=== PATIENT | male | born 1975 | race Caucasian/White ===

== ENCOUNTER 2020-12-28 23:22 | Emergency (ER) | payer OTHER ==
--- NOTE | 2020-12-29 02:09 | EDPHYS ---
Physician Documentation [facility] Name: Binu Mcelroy Age: 45 yrs Sex: Male : 1975 Arrival Date: 12/28/2020 Time: 23:28 Bed 9 Private MD: ED Physician Kumar Velarde HPI: 12/29 00:45 This 45 yrs old Male presents to ER via Ambulatory with complaints of RIGHT cp INDEX FINGER KNUCKLE FLUID BUILD UP. 00:45 Patient reports noticing swelling to the dorsal side of the right index finger at the cp proximal interphalangeal joint for the past month. Patient reports the swelling has seemed to get worse over the last 2 days and feels warm to the touch. Denies drainage from the area.. Historical: - Allergies: 00:02 No Known Allergies; lp1 - Home Meds: 00:18 lisinopril 20 mg Oral tab 1 tab once daily [Active]; carvedilol 12.5 mg oral tab 1 tab lp1 2 times per day [Active]; rosuvastatin 80 mg oral tab once daily [Active]; gabapentin 800 mg oral tab 1 tab 3 times per day [Active]; amlodipine 5 mg tab 1 tab once daily [Active]; Bumex 1 mg Oral tab 1 tab 2 times per day [Active]; metolazone 5 mg oral tab Q 2 days [Active]; isosorbide mononitrate 60 mg Oral Tb24 1 tab once daily [Active]; aspirin 81 mg Oral TbEC 1 tab once daily [Active]; tramadol 50 mg Oral tab [Active]; clopidogrel 75 mg oral tab once daily [Active]; Lantus U-100 Insulin 100 unit/mL Sub-Q soln 50 unit twice a day [Active]; insulin lispro subcutaneous [Active]; - PMHx: 00:02 Diabetes mellitus; CVA; CHF; lp1 - PSHx: 00:02 Heart stents; Pacemaker; lp1 - Immunization history:: Adult Immunizations up to date. - Social history:: Smoking status: Patient denies any tobacco usage or history of. ROS: 00:50 MS/extremity: Positive for decreased range of motion, pain, swelling, tenderness, of cp the right index finger, Negative for injury. 00:50 Constitutional: Negative for body aches, chills, fever. cp Exam: 01:00 Constitutional: The patient appears in no acute distress, alert, awake, non-toxic, well cp developed, well nourished. 01:00 Musculoskeletal/extremity: Extremities: grossly normal except: noted in the dorsal cp aspect of proximal interphalangeal joint phalanx of right index finger: cystic mass with mild erythema and swelling extending to proximal finger, mild tenderness along volar side of finger, pain with ROM proximal interphalangeal joint, Perfusion: the extremity is normally perfused throughout, Sensation intact. Vital Signs: 00:00 BP 151 / 97; Pulse 85; Resp 18; Temp 98.2(TE); Pulse Ox 97% on R/A; Weight 104.33 kg lp1 (R); Height 5 ft. 10 in. (177.80 cm); Pain 5/10; 00:00 Body Mass Index 33.00 (104.33 kg, 177.80 cm) lp1 MDM: 00:15 Patient medically screened. cp 01:00 Differential diagnosis: closed fracture, tenosynovitis, abscess, cellulitis. cp 02:07 Data reviewed: vital signs, nurses notes, radiologic studies, plain films. Test cp interpretation: by ED physician or midlevel provider: xrays of right index finger negative for fracture and/or foreign body. Counseling: I had a detailed discussion with the patient and/or guardian regarding: the historical points, exam findings, and any diagnostic results supporting the discharge/admit diagnosis, radiology results, the need for outpatient follow up, for definitive care, a hand specialist, to return to the emergency department if symptoms worsen or persist or if there are any questions or concerns that arise at home. 12/29 00:35 Order name: XRAY Finger-Thumb RIGHT: right index finger cp Administered Medications: 02:28 Drug: Bactrim (trimethoprim-sulfamethoxazole) (160 mg-800 mg (DS) 1 tablet Route: PO; jb4 02:29 Follow up: Response: Medication administered at discharge. jb4 02:28 Drug: Hydrocodone-Acetaminophen (7.5 mg-325 mg) 1 tabs Route: PO; jb4 02:29 Follow up: Response: Medication administered at discharge. jb4 02:29 Drug: Doxycycline 100 mg Route: PO; jb4 02:29 Follow up: Response: Medication administered at discharge. jb4 Disposition: 02:20 Chart complete. cp 07:06 Co-signature as Attending Physician, Kumar Velarde MD. [email or web address] Disposition Summary: 12/29/20 02:09 Discharge Ordered Location: Home cp Problem: new cp Symptoms: have improved cp Condition: Stable cp Diagnosis - Cellulitis of right finger - right index cp Followup: cp - With: Daniel Nelson MD - When: 2 - 3 days - Reason: Recheck today's complaints Discharge Instructions: - Discharge Summary Sheet cp - Cellulitis, Adult cp Forms: - Medication Reconciliation Form cp - Thank You Letter cp - Antibiotic Education cp - Prescription Opioid Use cp Prescriptions: - Doxycycline Hyclate 100 mg Oral Tablet - take 1 tablet by ORAL route every 12 hours; 20 tablet; Refills: 0, Product cp Selection Permitted - Bactrim DS 800-160 mg Oral Tablet - take 1 tablet by ORAL route every 12 hours for 10 days; 20 tablet; Refills: 0, cp Product Selection Permitted Signatures: Dispatcher [employer] EDLi Mcqueen RN RN lp1 Baljinder Vences PA PA cp Car Delaney RN RN jb4 Kumar Velarde MD MD [email or web address] Corrections: (The following items were deleted from the chart) 02:28 02:09 Splint - Finger ordered. cp jb4
--- NOTE | 2020-12-29 02:09 | ER ---
Nurse's Notes [facility] Name: Binu Mcelroy Age: 45 yrs Sex: Male : 1975 Arrival Date: 12/28/2020 Time: 23:28 Bed 9 Private MD: Diagnosis: Cellulitis of right finger-right index Presentation: 12/29 00:00 Chief complaint: Patient states: Reports swelling and increased pain to right index lp1 finger knuckle x 2 days; Initial swelling began 1 month ago. Coronavirus screen: At this time, the client does not indicate any symptoms associated with coronavirus-19. Ebola Screen: No symptoms or risks identified at this time. Initial Sepsis Screen: Does the patient meet any 2 criteria? No. Patient's initial sepsis screen is negative. Does the patient have a suspected source of infection? No. Patient's initial sepsis screen is negative. Risk Assessment: Do you want to hurt yourself or someone else? Patient reports no desire to harm self or others. Onset of symptoms was December 29, 2020. 00:00 Method Of Arrival: Ambulatory lp1 00:00 Acuity: CRISS 4 lp1 Historical: - Allergies: 00:02 No Known Allergies; lp1 - Home Meds: 00:18 lisinopril 20 mg Oral tab 1 tab once daily [Active]; carvedilol 12.5 mg oral tab 1 tab lp1 2 times per day [Active]; rosuvastatin 80 mg oral tab once daily [Active]; gabapentin 800 mg oral tab 1 tab 3 times per day [Active]; amlodipine 5 mg tab 1 tab once daily [Active]; Bumex 1 mg Oral tab 1 tab 2 times per day [Active]; metolazone 5 mg oral tab Q 2 days [Active]; isosorbide mononitrate 60 mg Oral Tb24 1 tab once daily [Active]; aspirin 81 mg Oral TbEC 1 tab once daily [Active]; tramadol 50 mg Oral tab [Active]; clopidogrel 75 mg oral tab once daily [Active]; Lantus U-100 Insulin 100 unit/mL Sub-Q soln 50 unit twice a day [Active]; insulin lispro subcutaneous [Active]; - PMHx: 00:02 Diabetes mellitus; CVA; CHF; lp1 - PSHx: 00:02 Heart stents; Pacemaker; lp1 - Immunization history:: Adult Immunizations up to date. - Social history:: Smoking status: Patient denies any tobacco usage or history of. Screenin:02 Abuse screen: Denies threats or abuse. Denies injuries from another. Nutritional lp1 screening: No deficits noted. Tuberculosis screening: No symptoms or risk factors identified. Fall Risk None identified. Assessment: 00:19 General: Appears in no apparent distress. comfortable, Behavior is calm, cooperative, jb4 appropriate for age. Pain: Complains of pain in Right index finger Pain does not radiate. Pain currently is 5 out of 10 on a pain scale. Quality of pain is described as throbbing, pulsating. Neuro: Level of Consciousness is awake, alert, obeys commands, Oriented to person, place, time, situation. Cardiovascular: Patient's skin is warm and dry. Respiratory: Airway is patent Respiratory effort is even, unlabored, Respiratory pattern is regular, symmetrical. GI: No signs and/or symptoms were reported involving the gastrointestinal system. : No signs and/or symptoms were reported regarding the genitourinary system. EENT: No signs and/or symptoms were reported regarding the EENT system. Derm: Skin is intact, Skin is pink, warm \T\ dry. Musculoskeletal: Circulation, motion, and sensation intact. Range of motion: intact in all extremities, Swelling present in Right index finger. 01:31 Reassessment: Patient appears in no apparent distress at this time. Patient and/or jb4 family updated on plan of care and expected duration. Pain level reassessed. Patient is alert, oriented x 3, equal unlabored respirations, skin warm/dry/pink. 02:30 Reassessment: Patient appears in no apparent distress at this time. Patient and/or jb4 family updated on plan of care and expected duration. Pain level reassessed. Patient is alert, oriented x 3, equal unlabored respirations, skin warm/dry/pink. Vital Signs: 00:00 BP 151 / 97; Pulse 85; Resp 18; Temp 98.2(TE); Pulse Ox 97% on R/A; Weight 104.33 kg 1 (R); Height 5 ft. 10 in. (177.80 cm); Pain 5/10; 00:00 Body Mass Index 33.00 (104.33 kg, 177.80 cm) [facility] ED Course: 12/28 23:28 Patient arrived in ED. ja2 12/29 00:02 Triage completed. lp1 00:02 Arm band placed on. lp1 00:10 Baljinder Vences PA is PHCP. cp 00:10 Kumar Velarde MD is Attending Physician. cp 00:19 Car Delaney, RN is Primary Nurse. jb4 00:19 Patient has correct armband on for positive identification. Bed in low position. Call jb4 light in reach. Side rails up X 1. 01:46 XRAY Finger-Thumb RIGHT: right index finger In Process Unspecified. EDMS 02:08 Daniel Nelson MD is Referral Physician. cp 02:30 No provider procedures requiring assistance completed. Patient did not have IV access jb4 during this emergency room visit. Administered Medications: 02:28 Drug: Bactrim (trimethoprim-sulfamethoxazole) (160 mg-800 mg (DS) 1 tablet Route: PO; jb4 02:29 Follow up: Response: Medication administered at discharge. jb4 02:28 Drug: Hydrocodone-Acetaminophen (7.5 mg-325 mg) 1 tabs Route: PO; jb4 02:29 Follow up: Response: Medication administered at discharge. jb4 02:29 Drug: Doxycycline 100 mg Route: PO; jb4 02:29 Follow up: Response: Medication administered at discharge. jb4 Outcome: 02:09 Discharge ordered by MD. cp 02:30 Discharged to home ambulatory, with family. jb4 02:30 Condition: stable 02:30 Discharge instructions given to patient, family, Instructed on discharge instructions, follow up and referral plans. medication usage, Demonstrated understanding of instructions, follow-up care, medications, Prescriptions given X 2. 02:31 Patient left the ED. jb4 Signatures: Dispatcher [employer] EDMS Li Medina RN RN lp1 Baljinder Vences PA PA cp Car Delaney, RN RN jb4 Mini Dhaliwal [facility] Corrections: (The following items were deleted from the chart) 00:19 Pain: Complains of pain in dorsal aspect of proximal phalanx of right middle jb4 finger Pain does not radiate. Pain currently is 5 out of 10 on a pain scale. Quality of pain is described as throbbing, pulsating, jb4 00:19 Musculoskeletal: Circulation, motion, and sensation intact. Range of motion: jb4 intact in all extremities, Swelling present in dorsal aspect of proximal phalanx of right middle finger jb4
[2020-12-29 02:34] VITALS: BP 151/97; TEMP 98.2; O2SAT 97
[2020-12-29] MEDS ORDERED: SMZ./TMP. 800/160 MG TABLET ONE (02:40)
[2020-12-29] MEDS ORDERED: HYDROCODONE/APAP 7.5/325 MG TAB ONE (02:41)
[2020-12-29] MEDS ORDERED: DOXYCYCLINE 100 MG CAP PO ONE (02:41)
--- NOTE | 2020-12-29 09:07 | RAD REPORT ---
EXAM DESCRIPTION: RAD - Finger-Thumb Right - 12/29/2020 1:46 am CLINICAL HISTORY: PAIN COMPARISON: No comparisons FINDINGS: No acute fracture. No malalignment. No significant focal degenerative changes. IMPRESSION: No acute osseous abnormality involving the second finger.
== END 2020-12-29 02:31 | disposition home or self-care (01) ==
LOC: ER 23:22
DX: L03.011 Cellulitis of right finger (principal); E11.9 Type 2 diabetes mellitus without complications; I50.9 Heart failure, unspecified; Z95.5 Presence of coronary angioplasty implant and graft; Z95.0 Presence of cardiac pacemaker
CPT/HCPCS: 99283

== ENCOUNTER 2021-01-02 08:48 | Day surgery (SDC) | payer OTHER ==
[2021-01-02 09:29] LABS: Potassium 5.3 mmol/L (3.5-5.1)
[2021-01-02 09:53] LABS: Absolute Lymphocytes (CBC) 1.5 K/uL (0.7-4.9); Basophils % 0.9 % (0-1.3); Hematocrit 38.1 % (39.6-49.0); Lymphocytes % 15.3 % (15.3-44.8); MPV 9.1 fL (7.6-11.3); RBC Red Blood Cell Count 4.06 M/uL (4.33-5.43)
[2021-01-02] MEDS: NA CHLORIDE 0.9% 1,000 ML ONE ×2 (10:20→10:49)
--- NOTE | 2021-01-02 10:30 | RAD REPORT ---
EXAM DESCRIPTION: RAD - Hand Right 2 View - 01/02/2021 10:19 am CLINICAL HISTORY: RIGHT INDEX FINGER, SAME DAY SURGERY, BED 8 COMPARISON: <Comparisons> FINDINGS: Focal soft tissue prominence is seen along the dorsal soft tissues of the second finger ne ar the PIP joint. No underlying bony erosion or aggressive bone lesions seen. No fracture evident. Mi ld atherosclerosis.
--- NOTE | 2021-01-02 10:30 | RAD REPORT ---
EXAM DESCRIPTION: RAD - Chest Pa And Lat (2 Views) - 01/02/2021 10:19 am CLINICAL HISTORY: STAT, SAME DAY SURGERY, BED 8 Chest pain. COMPARISON: No comparisons FINDINGS: The lungs are clear. The heart is moderately enlarged with a dual lead pacer device presen t. Trace left pleural effusion.
[2021-01-02] MEDS: CEFAZOLIN/NS 1gm 1 GM/50 ML BAG ONE ×2 (10:50→11:55)
[2021-01-02] MEDS ORDERED: propofoL 200 MG/20 ML VIAL IV ONE (11:19)
[2021-01-02] MEDS ORDERED: FENTANYL CITR 100 MCG/2 ML ONE (11:19)
[2021-01-02] MEDS ORDERED: MIDAZOLAM HCL 2 MG/2 ML INJ ONE (11:19)
[2021-01-02] MEDS ORDERED: dexAMETHasone 10 MG/ML VIAL ONE (11:19)
[2021-01-02] MEDS ORDERED: BUPIVACAINE 0.25% PF 10 ML VIAL ONE (11:20)
[2021-01-02] MEDS ORDERED: LIDOCAINE 2% MPF 5 ML VIAL ONE (11:20)
[2021-01-02] MEDS ORDERED: ONDANSETRON 4 MG/2 ML VIAL ONE (11:20)
[2021-01-02] MEDS ORDERED: KETOROLAC 30 MG/ML INJ ONE (11:20)
--- NOTE | 2021-01-02 13:35 | OP ---
Surgeon: Daniel Nelson MD Preoperative Diagnosis: Mass of the right index finger. Postoperative Diagnosis: Mass of the right index finger. Procedure: Excision of mass, arthrotomy. Anesthesia: Digital block. Procedure In Detail: After satisfactory block, the right hand was prepped with Betadine scrub and Betadine paint. Dry sterile drapes were placed in usual manner. Six gloves were used as a digital tourniquet. Hand was placed on roll lock table. A transverse incision was marked over the PIP of ulnar aspect of the right index . the mass appears to be a gout and was extending into the joint. The joint was opened and a curette as well as rongeur were used to remove all bony material. It was jet lavaged, irrigated with 3 L of dilute Betadine solution. Tourniquet released. Electrocautery was used for hemostasis. The wound was closed with 4-0 Prolene vertical mattress, half buried mattresses, simple sutures. Dressed with Xeroform, 2-inch Javier. The patient tolerated the procedure well and returned to recovery. MARIANNA/EUGENIO Voice ID: [id number] Report ID: [id number] CHAUNCEY
[2021-01-02] MEDS ORDERED: CODEINE 30MG/APAP 300MG TAB ONE (14:03)
[2021-01-02 14:16] VITALS: BP 140/45; TEMP 97.6; O2SAT 97
== END 2021-01-02 14:05 | disposition home or self-care (01) ==
LOC: OR 08:48
PROVIDERS: ATTEND Specialist
PROC: 0RBW0ZX Excision of Right Finger Phalangeal Joint, Open Approach, Diagnostic (ICD-10-PCS; principal; 2021-01-02 11:15)
DX: R22.31 Localized swelling, mass and lump, right upper limb (principal); Z20.822 Contact with and (suspected) exposure to COVID-19
CPT/HCPCS: 93005; 85025; 80048; 36415; 88305; 71046; 73120; 26110; U0003; J2704; J2250; J3010; J0690; J7030; J2405; J1100

== ENCOUNTER 2021-01-07 07:11 | Emergency (ER) | payer OTHER ==
[2021-01-07] MEDS ORDERED: FUROSEMIDE 40 MG/4 ML VIAL ONE ×2 (08:10→10:02)
[2021-01-07 08:17] LABS: Hematocrit 38.9 % (39.6-49.0); RBC Red Blood Cell Count 4.13 M/uL (4.33-5.43)
[2021-01-07 08:18] LABS: Basophils % 0.9 % (0-1.3); Lymphocytes % 8.8 % (15.3-44.8); Protime INR 1.37
[2021-01-07 08:40] LABS: Albumin 2.8 g/dL (3.4-5.0); Bilirubin Direct 0.3 mg/dL (0-0.2); Bilirubin Total 1.2 mg/dL (0.2-1.0); Magnesium 1.9 mg/dL (1.8-2.4); Troponin (Emerg Dept Use Only) 0.04 ng/mL (0.0-0.045)
[2021-01-07] MEDS ORDERED: ACETAMINOPHEN 325 MG TABLET ONE (09:36)
--- NOTE | 2021-01-07 10:31 | RAD REPORT ---
EXAM DESCRIPTION: RAD - Chest Single View - 01/07/2021 9:17 am CLINICAL HISTORY: SOB Chest pain. COMPARISON: Chest Pa And Lat (2 Views) dated 01/02/2021 FINDINGS: Portable technique limits examination quality. Moderate bilateral pulmonary opacities are present which may represent pulmonary edema or a pulmonary infection/ viral infection. The heart is mildly prominent size with dual lead pacer device present. Mild chronic blunting left costophrenic angle.
--- NOTE | 2021-01-07 10:57 | EKG ---
Test Date: 2021-01-07 Test Time: 07:36:51 Walking Dragline Oiler: CIARAN MEASUREMENT RESULTS: Intervals: Rate: 83 ME: 150 QRSD: 112 QT: 426 QTc: 500 [place]: P: 53 ME: 150 QRS: -61 T: 45 INTERPRETIVE STATEMENTS: Normal sinus rhythm Left axis deviation Low voltage QRS Inferior infarct, age undetermined Possible Anterolateral infarct, age undetermined Prolonged QT Abnormal ECG Compared to ECG 01/02/2021 09:05:02 Myocardial infarct finding now present Electronically Signed On 01-07-21 10:56:45 CDT by Dale East
--- NOTE | 2021-01-07 11:19 | EDPHYS ---
Physician Documentation [facility] Name: Binu Mcelroy Age: 45 yrs Sex: Male : 1975 Arrival Date: 01/07/2021 Time: 07:15 Bed 19 Private MD: LATONYA Physician Baljinder Bennett HPI: 01/07 07:48 This 45 yrs old Male presents to ER via Ambulatory with complaints of jmm Shortness Of Breath. 07:48 The patient has shortness of breath at rest. Onset: The symptoms/episode began/occurred jmm gradually, 3 day(s) ago. Duration: The symptoms are continuous, and are steadily getting worse. The patient's shortness of breath is aggravated by light activity. Associated signs and symptoms: Pertinent positives:. Patient complains of shortness of breath worsening over the past 3 days he attributes to chf with increased abdominal swelling. Denies fever. Doubled is dirurectics with no relief. . Historical: - Allergies: 07:27 No Known Allergies; ss - Home Meds: 07:27 amlodipine 1 mg tab tab 1 tab twice a day [Active]; aspirin 81 mg Oral TbEC 1 tab once ss daily [Active]; Bumex 1 mg Oral tab 1 tab 2 times per day [Active]; gabapentin 800 mg Oral tab 1 tab 3 times per day [Active]; metolazone 5 mg Oral tab Q 2 days [Active]; clopidogrel 75 mg Oral tab once daily [Active]; rosuvastatin 80 mg Oral tab once daily [Active]; isosorbide mononitrate 60 mg Oral Tb24 1 tab once daily [Active]; carvedilol 12.5 mg Oral tab 1 tab 2 times per day [Active]; lisinopril 20 mg Oral tab 1 tab once daily [Active]; Lantus U-100 Insulin 100 unit/mL Sub-Q soln 50 unit twice a day [Active]; - PMHx: 07:27 CHF; CVA; diabetes mellitus; Myocardial infarction; ss - PSHx: 07:27 Heart Stents; Pacemaker/Defib; ss - Immunization history:: Adult Immunizations up to date, Client reports receiving the 2nd dose of the Covid vaccine. - Social history:: Smoking status: Patient/guardian denies using tobacco, but has a distant history of tobacco abuse. ROS: 07:48 Constitutional: Negative for fever, chills, and weight loss. [facility] 07:48 Cardiovascular: Positive for 07:48 Respiratory: Positive for shortness of breath. 07:48 All other systems are negative. Exam: 07:48 Constitutional: This is a well developed, well nourished patient who is awake, alert, jmm and in no acute distress. Head/Face: atraumatic. Eyes: EOMI, no conjunctival erythema appreciated ENT: Moist Mucus Membranes Neck: Trachea midline, Supple Chest/axilla: Normal chest wall appearance and motion. Cardiovascular: Regular rate and rhythm. No edema appreciated Respiratory: Normal respirations, no respiratory distress appreciated 07:48 Back: Normal ROM Skin: General appearance color normal MS/ Extremity: Moves all extremities, no obvious deformities appreciated, no edema noted to the lower extremities Neuro: Awake and alert, normal gait Psych: Behavior is normal, Mood is normal, Patient is cooperative and pleasant 07:48 Abdomen/GI: Inspection: distension, obese Bowel sounds: normal, Palpation: soft, in all quadrants. Vital Signs: 07:25 BP 152 / 100; Pulse 88; Resp 18; Temp 98.8(TE); Pulse Ox 97% on R/A; Weight 106.59 kg; ss Height 5 ft. 10 in. (177.80 cm); Pain 0/10; 07:42 BP 150 / 99; Pulse 83; Resp 19; Pulse Ox 97% on R/A; ap3 09:29 BP 150 / 98; Pulse 88; Resp 17; Pulse Ox 98% on R/A; ap3 10:24 BP 152 / 94; Pulse 86; Pulse Ox 100% on R/A; ap3 11:15 BP 149 / 86; Pulse 78; Pulse Ox 96% on R/A; ap3 07:25 Body Mass Index 33.72 (106.59 kg, 177.80 cm) ss MDM: 07:40 Patient medically screened. [facility] 11:17 Data reviewed: vital signs, nurses notes. Counseling: I had a detailed discussion with laurence the patient and/or guardian regarding: the historical points, exam findings, and any diagnostic results supporting the discharge/admit diagnosis, lab results, radiology results, the need for outpatient follow up, to return to the emergency department if symptoms worsen or persist or if there are any questions or concerns that arise at home. ED course: Patient states feeling much better. 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 Patient understood agrees plan of care.. 01/07 07:40 Order name: Basic Metabolic Panel [facility] 01/07 07:40 Order name: CBC with Diff; Complete Time: 08:20 [facility] 01/07 07:40 Order name: LFT's; Complete Time: 08:42 [facility] 01/07 07:40 Order name: Magnesium; Complete Time: 08:42 [facility] 01/07 07:40 Order name: NT PRO-BNP; Complete Time: 08:42 [facility] 01/07 07:40 Order name: PT-INR; Complete Time: 08:20 [facility] 01/07 07:40 Order name: Troponin (emerg Dept Use Only); Complete Time: 08:42 [facility] 01/07 07:40 Order name: XRAY Chest (1 view); Complete Time: 10:36 [facility] 01/07 07:40 Order name: EKG; Complete Time: 07:41 [facility] 01/07 07:41 Order name: Basic Metabolic Panel; Complete Time: 08:42 [facility] 01/07 08:14 Order name: SARS-COV-2 RT PCR; Complete Time: 09:10 [facility] 01/07 07:40 Order name: Cardiac monitoring; Complete Time: 07:42 [facility] 01/07 07:40 Order name: EKG - Nurse/Tech; Complete Time: 07:42 [facility] 01/07 07:40 Order name: IV Saline Lock; Complete Time: 08:02 [facility] 01/07 07:40 Order name: Labs collected and sent; Complete Time: 08:02 [facility] 01/07 07:40 Order name: O2 Per Protocol; Complete Time: 07:42 [facility] 01/07 07:40 Order name: O2 Sat Monitoring; Complete Time: 07:42 jmm Administered Medications: 08:02 Drug: Lasix (furosemide) 40 mg Route: IVP; Site: right antecubital; ap3 09:42 Follow up: Response: No adverse reaction ap3 09:42 Drug: Lasix (furosemide) 40 mg Route: IVP; Site: right antecubital; ap3 10:33 Follow up: Response: No adverse reaction ap3 Disposition: 22:51 Co-signature as Attending Physician, Baljinder Bennett MD I agree with the assessment and shahnaz plan of care. 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 Followup: jm - With: Private Physician - When: 2 - 3 days - Reason: Recheck today's complaints, Continuance of care, Re-evaluation by your physician Discharge Instructions: - Discharge Summary Sheet jm - Heart Failure Action Plan jmm - Heart Failure Exacerbation jmm - Heart Failure Eating Plan [facility] Forms: - Medication Reconciliation Form [facility] - Thank You Letter jm - Antibiotic Education jm - Prescription Opioid Use [facility] Signatures: Dispatcher [employer] EDMS Baljinder Bennett MD MD cha Mickail, Joel, PA PA jmm Smirch, Shelby, SHIREEN RN Mary Milner RN RN ap3 Corrections: (The following items were deleted from the chart) 07:29 07:27 PSHx: pacemaker; [facility] 08:14 07:41 CORONAVIRUS+MR.LAB.BRZ ordered. [facility] EDMS
--- NOTE | 2021-01-07 11:19 | ER ---
Nurse's Notes [facility] Name: Binu Mcelroy Age: 45 yrs Sex: Male : 1975 Arrival Date: 01/07/2021 Time: 07:15 Bed 19 Private MD: Diagnosis: Acute on chronic combined systolic (congestive) and diastolic (congestive) heart failure Presentation: 01/07 07:25 Chief complaint: Patient states: Shortness of breath that began yesterday. Pt reports ss that this happens to him twice a year and that his meds need a "kickstart". HX of CHF and believes this may be an exacerbation. Coronavirus screen: Client denies travel out of the [place] in the last 14 days. Ebola Screen: Patient denies exposure to infectious person. Patient denies travel to an Ebola-affected area in the 21 days before illness onset. Initial Sepsis Screen: Does the patient meet any 2 criteria? No. Patient's initial sepsis screen is negative. Does the patient have a suspected source of infection? No. Patient's initial sepsis screen is negative. Risk Assessment: Do you want to hurt yourself or someone else? Patient reports no desire to harm self or others. Onset of symptoms was January 06, 2021. 07:25 Method Of Arrival: Ambulatory ss 07:25 Acuity: CRISS 3 ss Triage Assessment: 07:42 Respiratory: Onset: The symptoms/episode began/occurred gradually. ap3 Historical: - Allergies: 07:27 No Known Allergies; ss - Home Meds: 07:27 amlodipine 1 mg tab tab 1 tab twice a day [Active]; aspirin 81 mg Oral TbEC 1 tab once ss daily [Active]; Bumex 1 mg Oral tab 1 tab 2 times per day [Active]; gabapentin 800 mg Oral tab 1 tab 3 times per day [Active]; metolazone 5 mg Oral tab Q 2 days [Active]; clopidogrel 75 mg Oral tab once daily [Active]; rosuvastatin 80 mg Oral tab once daily [Active]; isosorbide mononitrate 60 mg Oral Tb24 1 tab once daily [Active]; carvedilol 12.5 mg Oral tab 1 tab 2 times per day [Active]; lisinopril 20 mg Oral tab 1 tab once daily [Active]; Lantus U-100 Insulin 100 unit/mL Sub-Q soln 50 unit twice a day [Active]; - PMHx: 07:27 CHF; CVA; diabetes mellitus; Myocardial infarction; ss - PSHx: 07:27 Heart Stents; Pacemaker/Defib; ss - Immunization history:: Adult Immunizations up to date, Client reports receiving the 2nd dose of the Covid vaccine. - Social history:: Smoking status: Patient/guardian denies using tobacco, but has a distant history of tobacco abuse. Screenin:31 Abuse screen: Denies threats or abuse. Nutritional screening: No deficits noted. ap3 Tuberculosis screening: No symptoms or risk factors identified. Fall Risk None identified. Assessment: 07:40 General: Appears in no apparent distress. comfortable, Behavior is calm, cooperative, ap3 appropriate for age. Pain: Denies pain. Neuro: Level of Consciousness is awake, alert, obeys commands, Oriented to person, place, time, situation, Appropriate for age Moves all extremities. Gait is steady, Speech is normal. Cardiovascular: Reports shortness of breath, Heart tones S1 S2 present Rhythm is regular. Respiratory: Reports shortness of breath at rest on exertion Airway is patent Respiratory effort is even, unlabored, Respiratory pattern is regular, symmetrical, Breath sounds are clear bilaterally. the patient has mild shortness of breath. GI: Abdomen is round Bowel sounds present X 4 quads. 08:02 Reassessment: patient provided with urinal post lasix administration. ap3 09:29 Reassessment: Patient and/or family updated on plan of care and expected duration. Pain ap3 level reassessed. Patient is alert, oriented x 3, equal unlabored respirations, skin warm/dry/pink. 10:24 Reassessment: Patient and/or family updated on plan of care and expected duration. Pain ap3 level reassessed. Patient is alert, oriented x 3, equal unlabored respirations, skin warm/dry/pink. Vital Signs: 07:25 BP 152 / 100; Pulse 88; Resp 18; Temp 98.8(TE); Pulse Ox 97% on R/A; Weight 106.59 kg; Height 5 ft. 10 in. (177.80 cm); Pain 0/10; 07:42 BP 150 / 99; Pulse 83; Resp 19; Pulse Ox 97% on R/A; ap3 09:29 BP 150 / 98; Pulse 88; Resp 17; Pulse Ox 98% on R/A; ap3 10:24 BP 152 / 94; Pulse 86; Pulse Ox 100% on R/A; ap3 11:15 BP 149 / 86; Pulse 78; Pulse Ox 96% on R/A; ap3 07:25 Body Mass Index 33.72 (106.59 kg, 177.80 cm) ED Course: 07:15 Patient arrived in ED. as 07:24 Michel Clark PA is PHCP. ashley 07:24 Baljinder Bennett MD is Attending Physician. jmm 07:27 Triage completed. ss 07:27 Arm band placed on right wrist. ss 07:30 Mary Naranjo, SHIREEN is Primary Nurse. ap3 07:32 Patient has correct armband on for positive identification. Bed in low position. Call ap3 light in reach. Side rails up X2. Pulse ox on. NIBP on. Door closed. Noise minimized. 09:17 XRAY Chest (1 view) In Process Unspecified. EDMS 09:29 Pt visited by . ap3 09:34 Nurse Practitioner and/or Physician Telecommunications Equipment Installer to see patient. ap3 11:08 Basic Metabolic Panel Sent. es2 11:10 Nurse Practitioner and/or Physician Telecommunications Equipment Installer to see patient. ap3 11:27 No provider procedures requiring assistance completed. intact, bleeding controlled, No ap3 redness/swelling at site. Pressure dressing applied. Administered Medications: 08:02 Drug: Lasix (furosemide) 40 mg Route: IVP; Site: right antecubital; ap3 09:42 Follow up: Response: No adverse reaction ap3 09:42 Drug: Lasix (furosemide) 40 mg Route: IVP; Site: right antecubital; ap3 10:33 Follow up: Response: No adverse reaction ap3 Outcome: 11:17 Discharge ordered by . jmm 11:27 Discharged to home ambulatory. ap3 11:27 Condition: good 11:27 Discharge instructions given to patient, Instructed on discharge instructions, follow up and referral plans. Demonstrated understanding of instructions, follow-up care. 11:27 Patient left the ED. ap3 Signatures: Dispatcher [employer] EDMS Michel Clark PA PA jmm Martinez, Amelia as Smirch, Shelby, RN RN Mary Naranjo RN RN ap3 Angela Solomon, RN RN es2 Corrections: (The following items were deleted from the chart) 07:27 PSHx: pacemaker; ss ss
[2021-01-07 11:33] VITALS: TEMP 98.8
[2021-01-07 11:38] VITALS: BP 149/86; O2SAT 96
== END 2021-01-07 11:27 | disposition home or self-care (01) ==
LOC: ER 07:11
DX: I50.43 Acute on chronic combined systolic (congestive) and diastolic (congestive) heart failure (principal); E11.9 Type 2 diabetes mellitus without complications; Z20.822 Contact with and (suspected) exposure to COVID-19; Z79.82 Long term (current) use of aspirin; Z79.4 Long term (current) use of insulin; Z95.810 Presence of automatic (implantable) cardiac defibrillator; Z95.818 Presence of other cardiac implants and grafts
CPT/HCPCS: 93005; 85025; 80048; 36415; 83735; 85610; 80076; 84484; 83880; 71045; 96374; 99284; U0003; J1940 ×2

== ENCOUNTER 2021-02-03 18:41 | Inpatient (IN) | payer OTHER ==
[2021-02-03] MEDS ORDERED: FUROSEMIDE 40 MG/4 ML VIAL ONE ×2 (19:12→19:22)
--- NOTE | 2021-02-03 19:25 | RAD REPORT ---
EXAM DESCRIPTION: RAD - Chest Single View - 02/03/2021 7:05 pm CLINICAL HISTORY: SOB Chest pain. COMPARISON: Chest Single View dated 01/07/2021; Chest Pa And Lat (2 Views) dated 01/02/2021 FINDINGS: Portable technique limits examination quality. Mild interstitial pulmonary edema is seen. The heart is moderately enlarged in size. Dual lead pacer device is present. IMPRESSION: Mild CHF.
[2021-02-03 20:00] LABS: Absolute Lymphocytes (CBC) 0.7 K/uL (0.7-4.9); Basophils % 0.9 % (0-1.3); Hematocrit 40.9 % (39.6-49.0); MPV 9.1 fL (7.6-11.3); RBC Red Blood Cell Count 4.36 M/uL (4.33-5.43)
[2021-02-03 20:08] LABS: Protime INR 1.27
[2021-02-03] MEDS ORDERED: ACETAMINOPHEN 325 MG TABLET ONE (20:24)
[2021-02-03 20:26] LABS: Urine Blood 2+ (Negative); Urine Glucose 1+ (Negative); Urine Protein 3+ (Negative); Urine Specific Gravity 1.025 (1.005-1.030)
[2021-02-03 20:30] LABS: Albumin 2.6 g/dL (3.4-5.0); Bilirubin Direct 0.2 mg/dL (0-0.2); Bilirubin Total 0.8 mg/dL (0.2-1.0); Magnesium 2.1 mg/dL (1.8-2.4); Potassium 4.4 mmol/L (3.5-5.1); Protein, Total 7.1 g/dL (6.4-8.2)
[2021-02-03 20:35] LABS: Troponin (Emerg Dept Use Only) 0.79 ng/mL (0.0-0.045)
--- NOTE | 2021-02-03 20:54 | EDPHYS ---
Physician Documentation [facility] Name: Binu Mcelroy Age: 45 yrs Sex: Male : 1975 Arrival Date: 02/03/2021 Time: 18:43 Bed 8 Private MD: ED Physician Ivory Drake HPI: 02/03 20:47 This 45 yrs old Male presents to ER via EMS with complaints of Shortness Of jmm Breath. 20:47 The patient has shortness of breath at rest. Onset: The symptoms/episode began/occurred jmm gradually. The patient's shortness of breath is aggravated by nothing, is alleviated by nothing. Associated signs and symptoms: Pertinent positives:. The patient has experienced similar episodes in the past. Historical: - Allergies: 18:46 No Known Allergies; ll1 - Home Meds: 21:37 metolazone 5 mg Oral tab Q 2 days [Active]; Bumex 1 mg Oral tab 1 tab 2 times per day mr2 [Active]; carvedilol 12.5 mg Oral tab 1 tab 2 times per day [Active]; clopidogrel 75 mg Oral tab once daily [Active]; Lantus U-100 Insulin 100 unit/mL Sub-Q soln 50 unit twice a day [Active]; gabapentin 800 mg Oral tab 1 tab 3 times per day [Active]; - PMHx: 18:46 CHF; CVA; diabetes mellitus; Myocardial infarction; ll1 - PSHx: 18:46 Heart Stents; Pacemaker/Defib; ll1 - Immunization history:: Adult Immunizations up to date. - Social history:: Smoking status: Patient/guardian denies using tobacco, the patient reports quitting approximately 5 years ago. ROS: 20:47 Constitutional: Negative for fever, chills, and weight loss, Cardiovascular: Negative jmm for chest pain, palpitations, and edema. 20:47 Respiratory: Positive for shortness of breath. 20:47 All other systems are negative. Exam: 20:47 Constitutional: This is a well developed, well nourished patient who is awake, alert, jmm and in no acute distress. Head/Face: atraumatic. Eyes: EOMI, no conjunctival erythema appreciated ENT: Moist Mucus Membranes Neck: Trachea midline, Supple Chest/axilla: Normal chest wall appearance and motion. Cardiovascular: Regular rate and rhythm. No edema appreciated Respiratory: Normal respirations, no respiratory distress appreciated Abdomen/GI: Non distended, soft Back: Normal ROM Skin: General appearance color normal MS/ Extremity: Moves all extremities, no obvious deformities appreciated, no edema noted to the lower extremities Neuro: Awake and alert, normal gait Psych: Behavior is normal, Mood is normal, Patient is cooperative and pleasant Vital Signs: 18:51 BP 158 / 91; Pulse 100; Resp 20; Temp 100.8; Pulse Ox 99% on 3 lpm NC; Weight 111.13 ll1 kg; Height 5 ft. 10 in. (177.80 cm); Pain 2/10; 21:25 BP 176 / 111; Pulse 103; Resp 20; Pulse Ox 96% on 2 lpm NC; tw5 18:51 Body Mass Index 35.15 (111.13 kg, 177.80 cm) ll1 MDM: 19:17 Patient medically screened. [facility] 20:51 Data reviewed: vital signs, nurses notes. Counseling: I had a detailed discussion with [facility] the patient and/or guardian regarding: the historical points, exam findings, and any diagnostic results supporting the discharge/admit diagnosis, lab results, radiology results, the need for further work-up and treatment in the hospital. ED course: I discussed the patient with Aníbal Jolley whom accepted the patient to Dr. Gaston de la cruz. . 02/03 18:53 Order name: Basic Metabolic Panel; Complete Time: 20:44 [facility] 02/03 18:53 Order name: CBC with Diff; Complete Time: 20:10 [facility] 02/03 18:53 Order name: LFT's; Complete Time: 20:44 [facility] 02/03 18:53 Order name: Magnesium; Complete Time: 20:44 [facility] 02/03 18:53 Order name: NT PRO-BNP; Complete Time: 20:44 [facility] 02/03 18:53 Order name: PT-INR; Complete Time: 20:44 [facility] 02/03 18:53 Order name: Troponin (emerg Dept Use Only); Complete Time: 20:44 [facility] 02/03 18:53 Order name: XRAY Chest (1 view); Complete Time: 19:41 [facility] 02/03 18:53 Order name: COVID-19 SARS RT PCR (Document "Date of Onset" if Symptomatic); Complete [facility] Time: 21:31 02/03 20:26 Order name: Urine Dipstick-Ancillary; Complete Time: 20:44 [facility] 02/03 20:45 Order name: Blood Culture Adult (2) [facility] 02/03 20:45 Order name: Procalcitonin [facility] 02/03 20:45 Order name: Lactate; Complete Time: 22:02 [facility] 02/03 18:53 Order name: EKG; Complete Time: 18:55 [facility] 02/03 18:53 Order name: Cardiac monitoring; Complete Time: 19:45 [facility] 02/03 18:53 Order name: EKG - Nurse/Tech; Complete Time: 21:02 [facility] 02/03 18:53 Order name: IV Saline Lock; Complete Time: 19:45 [facility] 02/03 18:53 Order name: Labs collected and sent; Complete Time: 19:45 [facility] 02/03 18:53 Order name: O2 Per Protocol; Complete Time: 19:45 [facility] 02/03 18:53 Order name: O2 Sat Monitoring; Complete Time: 19:46 [facility] 02/03 19:42 Order name: Urine Dipstick-Ancillary (obtain specimen); Complete Time: 20:36 [facility] Administered Medications: 19:25 Drug: Lasix (furosemide) 40 mg Route: IVP; Site: right antecubital; mr2 21:28 Follow up: Response: No adverse reaction tw5 19:44 Drug: Lasix (furosemide) 40 mg Route: IVP; Site: right antecubital; mr2 21:28 Follow up: Response: No adverse reaction tw5 20:19 Drug: Tylenol 650 mg Route: PO; mr2 21:28 Follow up: Response: No adverse reaction tw5 Disposition: 02/04 09:10 Co-signature as Attending Physician, Ivory Drake MD I agree with the assessment and sp3 plan of care. Disposition Summary: 02/03/21 20:53 Hospitalization Ordered Hospitalization Status: Inpatient Admission [facility] Provider: Parveen Feldman Location: Telemetry/MedSurg (Inpatient) [facility] Condition: Stable jm Problem: new jmm Symptoms: are unchanged [facility] Bed/Room Type: Standard [facility] Room Assignment: 217(02/03/21 21:44) Diagnosis - Acute on chronic combined systolic (congestive) and diastolic (congestive) heart [facility] failure Forms: - Medication Reconciliation Form ashley - SBAR form ashley Signatures: Dispatcher [employer] Shanna Blackmon RN RN mw Mickail, Joel, PA PA jmm Lewis, Lynsay, RN RN ll1 Ivory Drake MD MD sp3 Floyd Mejias RN RN mr2 Enmanuel Rand tw5 Corrections: (The following items were deleted from the chart) 02/03 21:44 20:53 laurence carter
--- NOTE | 2021-02-03 20:54 | ER ---
Nurse's Notes [facility] Name: Binu Mcelroy Age: 45 yrs Sex: Male : 1975 Arrival Date: 02/03/2021 Time: 18:43 Bed 8 Private MD: Diagnosis: Acute on chronic combined systolic (congestive) and diastolic (congestive) heart failure Presentation: 02/03 18:47 Chief complaint: EMS states: Toned out for SOB and cough. BP 180/110 HR 100. Vitals ll1 otherwise normal. Coronavirus screen: Client denies travel out of the [place] in the last 14 days. cough unrelated to allergies, difficulty breathing, shortness of breath, Client presents with at least one sign or symptom that may indicate coronavirus-19. Standard/surgical mask placed on the client. Ebola Screen: Patient denies travel to an Ebola-affected area in the 21 days before illness onset. Initial Sepsis Screen: Does the patient meet any 2 criteria? No. Patient's initial sepsis screen is negative. Does the patient have a suspected source of infection? No. Patient's initial sepsis screen is negative. Risk Assessment: Do you want to hurt yourself or someone else? Patient reports no desire to harm self or others. Onset of symptoms was February 03, 2021. 18:47 Method Of Arrival: EMS ll1 18:47 Acuity: CRISS 3 ll1 Triage Assessment: 19:30 Respiratory: Reports shortness of breath labored breathing Onset: The symptoms/episode mr2 began/occurred gradually, the patient has moderate shortness of breath. 21:35 General: Appears uncomfortable, obese, Behavior is calm, cooperative. mr2 Historical: - Allergies: 18:46 No Known Allergies; ll1 - Home Meds: 21:37 metolazone 5 mg Oral tab Q 2 days [Active]; Bumex 1 mg Oral tab 1 tab 2 times per day mr2 [Active]; carvedilol 12.5 mg Oral tab 1 tab 2 times per day [Active]; clopidogrel 75 mg Oral tab once daily [Active]; Lantus U-100 Insulin 100 unit/mL Sub-Q soln 50 unit twice a day [Active]; gabapentin 800 mg Oral tab 1 tab 3 times per day [Active]; - PMHx: 18:46 CHF; CVA; diabetes mellitus; Myocardial infarction; ll1 - PSHx: 18:46 Heart Stents; Pacemaker/Defib; ll1 - Immunization history:: Adult Immunizations up to date. - Social history:: Smoking status: Patient/guardian denies using tobacco, the patient reports quitting approximately 5 years ago. Screenin:25 Abuse screen: Denies threats or abuse. Denies injuries from another. Nutritional tw5 screening: No deficits noted. Tuberculosis screening: No symptoms or risk factors identified. Fall Risk None identified. Assessment: 20:00 Cardiovascular: Rhythm is sinus rhythm with PACs. Respiratory: Airway Breath sounds mr2 with crackles bilaterally. 21:00 Respiratory: Respiratory effort is even, labored. mr2 21:25 Pain: Pain currently is 0 out of 10 on a pain scale. Cardiovascular: Reports nausea, tw5 Pulses are 2+ in right radial artery and left radial artery. Vital Signs: 18:51 BP 158 / 91; Pulse 100; Resp 20; Temp 100.8; Pulse Ox 99% on 3 lpm NC; Weight 111.13 ll1 kg; Height 5 ft. 10 in. (177.80 cm); Pain 2/10; 21:25 BP 176 / 111; Pulse 103; Resp 20; Pulse Ox 96% on 2 lpm NC; tw5 18:51 Body Mass Index 35.15 (111.13 kg, 177.80 cm) ll1 ED Course: 18:43 Patient arrived in ED. ll1 18:46 Arm band placed on Patient placed in an exam room, on a stretcher. 1 18:48 Triage completed. [facility] 18:52 Michel Clark PA is PHCP. [facility] 18:52 Ivory Drake MD is Attending Physician. [facility] 18:55 Ty Morales, SHIREEN is Primary Nurse. bp 19:05 XRAY Chest (1 view) In Process Unspecified. EDMS 19:30 Inserted saline lock: 20 gauge in right antecubital area, using aseptic technique. mr2 19:45 COVID-19 SARS RT PCR (Document "Date of Onset" if Symptomatic) Sent. mr2 19:46 Basic Metabolic Panel Sent. mr2 19:46 CBC with Diff Sent. mr2 19:46 LFT's Sent. mr2 19:46 Magnesium Sent. mr2 19:46 PT-INR Sent. mr2 19:46 NT PRO-BNP Sent. mr2 19:46 Troponin (emerg Dept Use Only) Sent. mr2 20:00 No provider procedures requiring assistance completed. mr2 20:19 COVID-19 SARS RT PCR (Document "Date of Onset" if Symptomatic) Sent. mr2 20:52 Parveen Feldman DO is Hospitalizing Provider. [facility] 21:00 Patient admitted, IV remains in place. mr2 21:20 Blood Culture Adult (2) Sent. mr2 21:20 Lactate Sent. mr2 21:20 Procalcitonin Sent. mr2 21:25 Patient has correct armband on for positive identification. Bed in low position. Call tw5 light in reach. Side rails up X 1. air sampling and monitoring on. Pulse ox on. NIBP on. Door closed. Moved to private room. Warm blanket given. Verbal reassurance given. 21:25 Inserted saline lock: 22 gauge in left antecubital area, using aseptic technique. Blood tw5 collected. 21:27 Patient requests liquids. tw5 21:27 Initial lab(s) drawn, Second set of blood cultures drawn by il. tw5 21:27 IV is intact, with fluids infusing freely, with good blood return. tw5 21:28 Procalcitonin Sent. tw5 21:28 Lactate Sent. tw5 Administered Medications: 19:25 Drug: Lasix (furosemide) 40 mg Route: IVP; Site: right antecubital; mr2 21:28 Follow up: Response: No adverse reaction tw5 19:44 Drug: Lasix (furosemide) 40 mg Route: IVP; Site: right antecubital; mr2 21:28 Follow up: Response: No adverse reaction tw5 20:19 Drug: Tylenol 650 mg Route: PO; mr2 21:28 Follow up: Response: No adverse reaction tw5 Outcome: 20:53 Decision to Hospitalize by Provider. [facility] 21:00 Admitted to Med/surg mr2 21:00 Condition: stable 21:00 Demonstrated understanding of instructions. 22:14 Patient left the ED. tw5 Signatures: Dispatcher [employer] EDMS Michel Clark PA PA jmm Peltier, Brian RN Annika Lam RN RN 1 Floyd Mejias RN RN mr2 Rand Singer tw5
--- NOTE | 2021-02-03 21:33 | P.HP ---
Certification for Inpatient Patient admitted to: Inpatient With expected LOS: >2 Midnights Patient will require the following post-hospital care: None Practitioner: I am a practitioner with admitting privileges, knowledge of patient current condition, hospital course, and medical plan of care. Services: Services provided to patient in accordance with Admission requirements found in Title 42 Section 412.3 of the Code of Federal Regulations Patient History Date of Service: 02/03/21 Primary Care Provider: None Reason for admission: CHF exacerbation History of Present Illness: 45-year-old male with history of chronic systolic congestive heart failure, CKD 4, hypertension, CAD, diabetes most type II presents emergency department for shortness of breath. Patient was found to be hypoxic on room air by EMS with saturations in the 80s. Patient was evaluated in the emergency department labs are significant for creatinine 2.47 GFR 28 BUN 62 glucose 325 troponin 0 0.79 BNP 10,892 Covid test negative chest x-ray demonstrates mild CHF pattern. Patient did have low-grade fever to 100.8, patient reports that multiple family members at home with similar respiratory symptoms. Chest x-ray does not demonstrate pneumonia white blood cell count normal at this time. Patient was given Rocephin in the emergency department ED provider wishes to admit for CHF exacerbation. Allergies No Known Allergies Allergy (Verified 01/02/21 09:20) Home Medications: Bumetanide [Bumex*] 1 tab PO DAILY 01/02/21 Carvedilol [Coreg] 1 tab PO DAILY 01/02/21 Clopidogrel Bisulfate [Plavix*] 1 tab PO DAILY 01/02/21 Gabapentin 1 tab PO TID 01/02/21 Insulin Glargine,Hum.rec.anlog [Lantus] 50 units SQ BID 01/02/21 Insulin Lispro [Humalog] See Protocol SQ TID 01/02/21 Isosorbide Mononitrate [Isosorbide Mononitrate ER] 1 tab PO DAILY 01/02/21 Lisinopril [Zestril] 1 tab PO DAILY 01/02/21 Rosuvastatin Calcium [Crestor] 2 tab PO DAILY 01/02/21 metOLazone [Metolazone] 1 tab PO DAILY 01/02/21 - Past Medical/Surgical History -: Systolic congestive heart failure -: CAD -: Diabetes mellitus type 2 -: Hypertension -: CKD4 -: Cardiac stents -: Pacemaker/defibrillator Psychosocial/ Personal History: Patient lives at home with his fiance - Family History Family History: Reviewed- Non-Contributory - Social History Smoking Status: Former smoker Alcohol use: No CD- Drugs: No Caffeine use: Yes Place of Residence: Home Review of Systems 10-point ROS is otherwise unremarkable Respiratory: Shortness of Breath, SOB with Excertion Physical Examination - Physical Exam General: Alert, In no apparent distress, Oriented x3 HEENT: Atraumatic, PERRLA, Mucous membr. moist/pink, EOMI, Sclerae nonicteric Neck: Supple, 2+ carotid pulse no bruit, No LAD, Without JVD or thyroid abnormality Respiratory: Crackles/rales Cardiovascular: Regular rate/rhythm, Normal S1 S2, Edema (1+ pitting edema bilateral lower extremities) Capillary refill: <2 Seconds Gastrointestinal: Normal bowel sounds, No tenderness Musculoskeletal: No tenderness Integumentary: No rashes Neurological: Normal speech, Normal strength at 5/5 x4 extr, Normal tone, Normal affect - Studies Laboratory Data (last 24 hrs) 02/03/21 19:15: PT 14.6 H, INR 1.27 02/03/21 19:15: WBC 9.70, Hgb 13.7, Hct 40.9, Plt Count 189 02/03/21 19:15: Sodium 138, Potassium 4.4, BUN 62 H, Creatinine 2.47 H, Glucose 325 H, Magnesium 2.1, Total Bilirubin 0.8, AST 22, ALT 36, Alkaline Phosphatase 111 Assessment and Plan - Plan Assessment: Acute hypoxic respiratory failure secondary to acute on chronic systolic congestive heart failure CKD 4 Diabetes type 2 with hyperglycemia Hypertension History of CAD History of CVA Plan: Acute hypoxic respiratory failure secondary to acute on chronic systolic congestive heart failure: Continue with IV Lasix 80 mg twice daily and metolazone 5 mg p.o. daily, patient reports that he takes Bumex 1 mg p.o. twice daily and metolazone 5 mg every other day but when he has exacerbations takes his metolazone 5 mg daily for 3 days. Troponin elevated likely related to demand ischemia and decreased renal clearance, will trend troponin and monitor on telemetry. Patient reports his last echocardiogram had an ejection fraction of around 30% but cannot remember when exactly this was. We will consult cardiology and continue with IV diuresis. CKD 4: Patient has not established with PCP/nephrology, renal function stable from previous. Will consult nephrology for assistance with management of CKD 4 and CHF with need for significant diuresis. Diabetes type 2 with hyperglycemia: A [facility] Accu-Chek, sliding scale insulin therapy. A1c with morning labs. Patient reports that he takes Levemir 50 units twice daily as well as 70/30 moderate sliding scale Hypertension: Obtain an continue home medications, continue as appropriate. History of CAD: Obtain an continue home medications History of CVA: Obtain and continue home medications. DVT PPX: Heparin Code status: Full Discharge Plan: Home Plan to discharge in: 48 Hours - Advance Directives Does patient have a Living Will: No Does patient have a Durable POA for Healthcare: No - Code Status/Comfort Care Code Status Assessed: Yes (Full code) Critical Care: No Time Spent Managing Pts Care (In Minutes): 55
[2021-02-03] MEDS ORDERED: ONDANSETRON 4 MG/2 ML VIAL IV PRN (22:15)
[2021-02-03] MEDS ORDERED: D50W 25 GM/50 ML SYRINGE IV PRN (22:15)
[2021-02-03] MEDS ORDERED: GLUCAGON 1 MG/VIAL IM PRN (22:15)
[2021-02-03] MEDS ORDERED: HYDRALAZINE HCL 20 MG/ML VIAL IV ONE (22:47)
[2021-02-03] MEDS: GABAPENTIN 400 MG CAP PO SCH (23:04)
[2021-02-03] MEDS: ROSUVASTATIN 10 MG TAB PO SCH (23:13)
[2021-02-03] MEDS ORDERED: IPRATROPIUM BROM 0.5MG/2.5ML ONE (23:32)
[2021-02-03] MEDS ORDERED: ALBUTEROL 2.5 MG/3 ML NEB SOL ONE (23:32)
[2021-02-04] MEDS: INSULIN -REGULAR HUMAN 50 UNIT/0.5 ML ML SQ SCH ×5 (00:12→21:00)
[2021-02-04] MEDS: ACETAMINOPHEN 500 MG TAB PO PRN ×3 (00:16→16:28)
[2021-02-04 00:51] LABS: SARS-COV-2 RT PCR NEGATIVE (NEGATIVE)
[2021-02-04] MEDS ORDERED: HYDRALAZINE HCL 20 MG/ML VIAL IV PRN (04:18)
[2021-02-04] MEDS ORDERED: carvediloL 12.5 MG TAB PO SCH ×3 (06:00→22:47)
[2021-02-04 06:08] LABS: Absolute Lymphocytes (CBC) 0.8 K/uL (0.7-4.9); Basophils % 0.6 % (0-1.3); Hematocrit 42.8 % (39.6-49.0); Lymphocytes % 6.1 % (15.3-44.8); MPV 9.2 fL (7.6-11.3); RBC Red Blood Cell Count 4.58 M/uL (4.33-5.43)
--- NOTE | 2021-02-04 06:08 | P.PN ---
Subjective Date of Service: 02/04/21 Primary Care Provider: None Chief Complaint: CHF exacerbation Subjective: Improving Physical Examination - Vital Signs Temperature: 98.4 F Blood Pressure: 173/101 Pulse: 101 Respirations: 20 Pulse Ox (%): 95 - Studies Laboratory Data (last 24 hrs) 02/03/21 19:15: PT 14.6 H, INR 1.27 02/03/21 19:15: WBC 9.70, Hgb 13.7, Hct 40.9, Plt Count 189 02/03/21 19:15: Sodium 138, Potassium 4.4, BUN 62 H, Creatinine 2.47 H, Glucose 325 H, Magnesium 2.1, Total Bilirubin 0.8, AST 22, ALT 36, Alkaline Phosphatase 111 Assessment & Plan Discharge Plan: Home Plan to discharge in: Greater than 2 days Physician Review Additional Text: COVID: negative CXR: COMPARISON: Chest Single View dated 01/07/2021; Chest Pa And Lat (2 Views) dated 01/02/2021 FINDINGS: Portable technique limits examination quality. Mild interstitial pulmonary edema is seen. The heart is moderately enlarged in size. Dual lead pacer device is present. IMPRESSION: Mild CHF. Physical exam: General: Alert, In no apparent distress, Oriented x3 HEENT: Neck supple Respiratory: Crackles to the bases. Currently on Ventimask Cardiovascular: Regular rate/rhythm, Normal S1 S2, Edema (1+ pitting edema bilateral lower extremities) Capillary refill: <2 Seconds Gastrointestinal: Normal bowel sounds, No tenderness Musculoskeletal: No tenderness Integumentary: 1+ pitting edema to the lower extremities Neurological: Normal speech, Normal strength at 5/5 x4 extr, Normal tone, Normal affect Impression: Acute hypoxic respiratory failure secondary to acute on chronic systolic congestive heart failure Elevated troponin secondary to ischemic demand Acute on chronic renal disease stage IV Diabetes type 2 with hyperglycemia Hypertension History of CAD History of CVA Diabetic neuropathy Hyperlipidemia Plan: Acute hypoxic respiratory failure secondary to acute on chronic systolic congestive heart failure: Continue with IV Lasix currently on 80 mg IV twice daily and metolazone 5 mg daily. We will teach on 1500 cc/day fluid restriction. Will monitor input output closely with daily weights. Case discussed in detail with cardiology. Await findings from echocardiogram. Check chest x-ray tomorrow. Wean off oxygen to maintain sats above 93%. Elevated troponin secondary to ischemic demand: Spoke with cardiology. No intervention required. Await echocardiogram. Continue with above plan of care. Acute on chronic renal disease stage IV: Nephrology consulted. Await recommendations. Will obtain renal ultrasound. Diabetes type 2 with hyperglycemia: A1c 8.4. Continue Accu-Cheks and sliding scale. Currently on Lantus 35 units subcu twice daily will adjust medication accordingly. Hypertension: Increase carvedilol to 12.5 mg 1 pill twice daily. Continue Norvasc 5 mg daily and lisinopril 20 mg daily. History of CAD: Continue aspirin 81 mg daily, Plavix 25 mg daily, and Imdur 60 mg daily. History of CVA: Continue with aspirin and Plavix Diabetic neuropathy: Continue with Neurontin 800 mg 1 pill 3 times a day Hyperlipidemia: Continue with Crestor 40 mg daily DVT PPX: Heparin Code status: Full Discharge Plan: Home at discharge Time Spent Managing Pts Care (In Minutes): 55
[2021-02-04 06:23] LABS: Albumin 2.6 g/dL (3.4-5.0); Magnesium 1.9 mg/dL (1.8-2.4); Potassium 4.1 mmol/L (3.5-5.1)
[2021-02-04 06:28] LABS: Bilirubin Total 0.9 mg/dL (0.2-1.0); Protein, Total 7.2 g/dL (6.4-8.2); Thyroid Stimulating Hormone 1.41 uIU/mL (0.360-3.740)
[2021-02-04 06:35] LABS: Troponin I 0.62 ng/mL (0.0-0.045)
[2021-02-04] MEDS ORDERED: INFLUENZA VACCINE (for 6+ mo) 0.5 ML DOSE IMVAC ONE (08:00)
[2021-02-04] MEDS: METOLAZONE 5 MG TABLET PO SCH (08:08)
[2021-02-04] MEDS: GABAPENTIN 400 MG CAP PO SCH ×3 (08:11→21:12)
[2021-02-04] MEDS: ASPIRIN EC 81 MG TAB PO SCH (08:11)
[2021-02-04] MEDS: CLOPIDOGREL 75 MG TABLET PO SCH (08:11)
[2021-02-04] MEDS: ISOSORBIDE MONO SR 60 MG TAB PO SCH (08:11)
[2021-02-04] MEDS: FUROSEMIDE 40 MG/4 ML VIAL IV SCH ×2 (08:12→16:22)
[2021-02-04] MEDS: HEPARIN 5000 UNIT/ML 1 ML VIAL SQ SCH ×3 (08:12→21:00)
[2021-02-04] MEDS: INSULIN GLARGINE 100 UNITS/ML SQ SCH ×2 (08:13→21:14)
[2021-02-04] MEDS ORDERED: lisinopriL 20 MG TAB PO SCH (09:00)
[2021-02-04] MEDS ORDERED: allopurinoL 100 MG TAB PO SCH (09:00)
[2021-02-04] MEDS ORDERED: AMLODIPINE 5 MG TAB PO SCH (09:00)
[2021-02-04] MEDS: GUAIFENESIN 600 MG SA TAB PO SCH ×2 (09:38→21:14)
--- NOTE | 2021-02-04 17:01 | RAD REPORT ---
EXAM DESCRIPTION: US - Renal Ultrasound-Complete - 02/04/2021 4:05 pm CLINICAL HISTORY: acute on chronic renal disease COMPARISON: No comparisons FINDINGS: The right kidney measures 13.3 x 5.1 x 4.0 cm. The left kidney measures 12.1 x 5.4 x 4.2 cm. Renal cortical thickness and echogenicity are normal. No hydronephrosis or suspicious renal mass. Bladder is contracted precluding accurate assessment. IMPRESSION: No hydronephrosis or suspicious renal mass. Bladder is contracted which occludes an accurate assessment.
[2021-02-04] MEDS ORDERED: LEVALBUTEROL 0.63 MG/3 ML NEB NEB ONE (17:32)
[2021-02-04] MEDS: ARFORMOTEROL TARTRATE 15 MCG/2 ML VIAL.NEB NEB SCH (19:20)
[2021-02-04] MEDS: ROSUVASTATIN 10 MG TAB PO SCH (21:12)
[2021-02-04] MEDS ORDERED: HOME MED 1 EA UNK (Rosuvastatin Calcium [Crestor] 40 MG Tablet) PO SCH (22:46)
[2021-02-04] MEDS: IPRATROPIUM BROM 0.5MG/2.5ML NEB PRN (23:25)
[2021-02-04] MEDS: LEVALBUTEROL 0.63 MG/3 ML NEB NEB PRN (23:25)
--- NOTE | 2021-02-05 05:57 | P.PN ---
Subjective Date of Service: 02/05/21 Primary Care Provider: None Chief Complaint: CHF exacerbation Subjective: Improving, Other (Currently on Ventimask. Patient reports improvement. Edema to the lower extremities improved. Output improved) Physical Examination - Vital Signs Temperature: 98.2 F Blood Pressure: 104/55 Pulse: 83 Respirations: 17 Pulse Ox (%): 93 Assessment & Plan Discharge Plan: Home Plan to discharge in: 48 Hours Physician Review Additional Text: COVID: negative CXR: COMPARISON: Chest Single View dated 01/07/2021; Chest Pa And Lat (2 Views) dated 01/02/2021 FINDINGS: Portable technique limits examination quality. Mild interstitial pulmonary edema is seen. The heart is moderately enlarged in size. Dual lead pacer device is present. IMPRESSION: Mild CHF. Follow up CXR 02/05/2021: COMPARISON: Chest Single View dated 02/03/2021; Chest Single View dated 01/07/2021; Chest Pa And Lat (2 Views) dated 01/02/2021 FINDINGS: Lines: None. Lungs: Pulmonary vascular congestion. Pleural: No significant pleural effusions or pneumothorax. Cardiac: Cardiomegaly. Pacemaker. Bones: No acute fractures. IMPRESSION: Mild edema/vascular congestion without significant change since 02/03/2021. Renal US: COMPARISON: No comparisons FINDINGS: The right kidney measures 13.3 x 5.1 x 4.0 cm. The left kidney measures 12.1 x 5.4 x 4.2 cm. Renal cortical thickness and echogenicity are normal. No hydronephrosis or suspicious renal mass. Bladder is contracted precluding accurate assessment. IMPRESSION: No hydronephrosis or suspicious renal mass. Bladder is contracted which occludes an accurate assessment. ECHO: CARDIAC HISTORY: CATHERIZATION: YES SURGERY: NO PROSTHETIC VALVE: NO PACEMAKER: YES MEASUREMENTS (cm) DIASTOLIC (NORMALS) SYSTOLIC (NORMALS) IVSd 1.2 (0.6-1.2) LA Diam 3.8 (1.9-4.0) LVEF 28% LVIDd 6.2 (3.5-5.7) LVIDs 5.4 (2.0-3.5) %FS 13% LVPWd 1.2 (0.6-1.2) Ao Diam 3.1 (2.0-3.7) 2 DIMENSIONAL ASSESSMENT: RIGHT ATRIUM: NORMAL LEFT ATRIUM: NORMAL RIGHT VENTRICLE: POSITIVE PERMANENT PACEMAKER LEFT VENTRICLE: DILATED TRICUSPID VALVE: NORMAL MITRAL VALVE: NORMAL PULMONIC VALVE: NORMAL AORTIC VALVE: NORMAL PERICARDIAL EFFUSION: TRACE AORTIC ROOT: NORMAL LEFT VENTRICULAR WALL MOTION: SEVERE GLOBAL HYPOKINESIS DOPPLER/COLOR FLOW: MILD TRICUSPID REGURGITATION. MODERATE PULMONARY HYPERTENSION COMMENTS: SEVERE GLOBAL HYPOKINESIS. MODERATE PULMONARY HYPERTENSION. EJECTION FRACTION 28%. PERMANENT PACEMAKER IN RIGHT VENTRICULAR APEX. TRACE PERICARDIAL EFFUSION. MODERATE FOR PULMONARY HYPERTENSION. RIGHT VENTRICULAR SYSTOLIC PRESSURE 60 mmHg Physical exam: General: Alert, In no apparent distress, Oriented x3 HEENT: Neck supple Respiratory: Better air movement bilateral. Less crackles to the bases. Currently on Ventimask Cardiovascular: Regular rate/rhythm, Normal S1 S2, edema to the lower extremity significantly improved. Capillary refill: <2 Seconds Gastrointestinal: Normal bowel sounds, No tenderness Musculoskeletal: No tenderness Integumentary: Edema to the lower extremity significantly improved. No significant pitting edema. Neurological: Normal speech, Normal strength at 5/5 x4 extr, Normal tone, Normal affect Impression: Acute hypoxic respiratory failure secondary to acute on chronic systolic congestive heart failure with ejection fraction 20% complicated with moderate p ulmonary hypertension, trace pericardial effusion Elevated troponin secondary to ischemic demand with history of pacemaker Acute on chronic renal disease stage IV Diabetes type 2 with hyperglycemia Hypertension History of CAD History of CVA Diabetic neuropathy Hyperlipidemia COPD with history of tobacco abuse Plan: Acute hypoxic respiratory failure secondary to acute on chronic systolic congestive heart failure with ejection fraction 28% complicated with moderate pulmonary hypertension, trace pericardial effusion: Patient much improved. Echo shows ejection fraction 20% with moderate pulmonary hypertension. Will consult pulmonology to evaluate pulmonary hypertension. Case discussed with cardiology yesterday. Will discuss further with nephrology. Will decrease IV Lasix to 40 mg IV twice daily. Continue metolazone 5 mg daily. Continue fluid restriction. Will monitor closely. Blood pressure on the low side. Will discontinue lisinopril especially in light of his acute on chronic renal failure. Will adjust blood pressure medication accordingly. Continue to wean off oxygen. Currently on Ventimask. Patient would likely require home health and physical therapy along with home oxygen at discharge. Medication for COPD also started due to his history of tobacco abuse. Will discuss further with nephrology, pulmonology and cardiology. Anticipate continued provement over the next several days. Elevated troponin secondary to ischemic demand with history of pacemaker: Spoke with cardiology. No intervention required. Echo shows ejection fraction 20% with pacemaker and moderate pulmonary hypertension. Trace pericardial effusion noted. Continue with aspirin and Plavix. Acute on chronic renal disease stage IV: Will discontinue KAREN inhibitorlisinopril. Will decrease Lasix to 40 mg IV twice daily. Continue metolazone. Await further adjustments from nephrology. Renal ultrasound shows no hydronephrosis or suspicious mass. Will monitor and address medications per renal function. Will discuss with nephrology about plan of care. Diabetes type 2 with hyperglycemia: A1c 8.4. Continue Accu-Cheks and sliding scale. Blood sugar well controlled. Currently on Lantus 35 units subcu twice daily. Will adjust medication accordingly. Hypertension: Lisinopril discontinued due to low blood pressure. Carvedilol was increased to 12.5 mg 1 pill twice daily. Patient remains on Norvasc 5 mg daily. Parameters in place to hold blood pressure medication if systolic less than 110. Continue to make adjustments appropriately. History of CAD: Continue aspirin 81 mg daily, Plavix 25 mg daily, and Imdur 60 mg daily. History of CVA: Continue with aspirin and Plavix Diabetic neuropathy: Continue with Neurontin 800 mg 1 pill 3 times a day Hyperlipidemia: Continue with Crestor 40 mg daily COPD with history of tobacco abuse: Brovana, Xopenex and Atrovent added. Continue to wean off oxygen. Pulmonology consulted to further evaluate and address. DVT PPX: Heparin Code status: Full Discharge Plan: Home at discharge with home health and physical therapy along with home oxygen. Time Spent Managing Pts Care (In Minutes): 55
[2021-02-05 05:59] LABS: Absolute Lymphocytes (CBC) 1.2 K/uL (0.7-4.9); Basophils % 0.4 % (0-1.3); Hematocrit 40.6 % (39.6-49.0); Lymphocytes % 8.5 % (15.3-44.8); MPV 8.9 fL (7.6-11.3); RBC Red Blood Cell Count 4.32 M/uL (4.33-5.43)
[2021-02-05] MEDS: LEVALBUTEROL 0.63 MG/3 ML NEB NEB PRN (06:00)
[2021-02-05] MEDS: IPRATROPIUM BROM 0.5MG/2.5ML NEB PRN ×2 (06:00→20:20)
[2021-02-05 06:23] LABS: Bilirubin Total 0.7 mg/dL (0.2-1.0); Potassium 4.1 mmol/L (3.5-5.1)
[2021-02-05 06:24] LABS: Albumin 2.4 g/dL (3.4-5.0); Magnesium 2.1 mg/dL (1.8-2.4); Protein, Total 6.8 g/dL (6.4-8.2)
--- NOTE | 2021-02-05 06:39 | ECHO ---
HEIGHT: 5 ft 10 in WEIGHT: 240 lb 9 oz DATE OF STUDY: 02/04/[address]: Aníbal Jolley NP 2-DIMENSIONAL: YES M.MODE: YES DOPPLER: YES COLOR FLOW: YES TDS: PORTABLE: DEFINITY: BUBBLE STUDY: DIAGNOSIS: DYSPNEA, HYPOXIA, HISTORY OF CONGESTIVE HEART FAILURE CARDIAC HISTORY: CATHERIZATION: YES SURGERY: NO PROSTHETIC VALVE: NO PACEMAKER: YES MEASUREMENTS (cm) DIASTOLIC (NORMALS) SYSTOLIC (NORMALS) IVSd 1.2 (0.6-1.2) LA Diam 3.8 (1.9-4.0) LVEF 28% LVIDd 6.2 (3.5-5.7) LVIDs 5.4 (2.0-3.5) %FS 13% LVPWd 1.2 (0.6-1.2) Ao Diam 3.1 (2.0-3.7) 2 DIMENSIONAL ASSESSMENT: RIGHT ATRIUM: NORMAL LEFT ATRIUM: NORMAL RIGHT VENTRICLE: POSITIVE PERMANENT PACEMAKER LEFT VENTRICLE: DILATED TRICUSPID VALVE: NORMAL MITRAL VALVE: NORMAL PULMONIC VALVE: NORMAL AORTIC VALVE: NORMAL PERICARDIAL EFFUSION: TRACE AORTIC ROOT: NORMAL LEFT VENTRICULAR WALL MOTION: SEVERE GLOBAL HYPOKINESIS DOPPLER/COLOR FLOW: MILD TRICUSPID REGURGITATION. MODERATE PULMONARY HYPERTENSION COMMENTS: SEVERE GLOBAL HYPOKINESIS. MODERATE PULMONARY HYPERTENSION. EJECTION FRACTION 28%. PERMANENT PACEMAKER IN RIGHT VENTRICULAR APEX. TRACE PERICARDIAL EFFUSION. MODERATE FOR PULMONARY HYPERTENSION. RIGHT VENTRICULAR SYSTOLIC PRESSURE 60 mmHg TECHNOLOGIST: CAROLINE CARMONA
--- NOTE | 2021-02-05 07:21 | RAD REPORT ---
EXAM DESCRIPTION: RAD - Chest Single View - 02/05/2021 5:58 am CLINICAL HISTORY: Follow up CHF COMPARISON: Chest Single View dated 02/03/2021; Chest Single View dated 01/07/2021; Chest Pa And Lat (2 Views) dated 01/02/2021 FINDINGS: Lines: None. Lungs: Pulmonary vascular congestion. Pleural: No significant pleural effusions or pneumothorax. Cardiac: Cardiomegaly. Pacemaker. Bones: No acute fractures. Other: IMPRESSION: Mild edema/vascular congestion without significant change since 02/03/2021.
[2021-02-05] MEDS: INSULIN -REGULAR HUMAN 50 UNIT/0.5 ML ML SQ SCH ×4 (07:30→20:36)
[2021-02-05] MEDS ORDERED: AMLODIPINE 5 MG TAB PO SCH (07:53)
[2021-02-05] MEDS: ARFORMOTEROL TARTRATE 15 MCG/2 ML VIAL.NEB NEB SCH ×2 (08:00→20:20)
[2021-02-05] MEDS: ACETAMINOPHEN 500 MG TAB PO PRN ×2 (08:16→13:55)
[2021-02-05] MEDS: carvediloL 12.5 MG TAB PO SCH ×2 (08:18→20:35)
[2021-02-05] MEDS: ASPIRIN EC 81 MG TAB PO SCH (08:19)
[2021-02-05] MEDS: METOLAZONE 5 MG TABLET PO SCH (08:19)
[2021-02-05] MEDS: CLOPIDOGREL 75 MG TABLET PO SCH (08:19)
[2021-02-05] MEDS: GABAPENTIN 400 MG CAP PO SCH ×3 (08:19→20:25)
[2021-02-05] MEDS: ISOSORBIDE MONO SR 60 MG TAB PO SCH (08:19)
[2021-02-05] MEDS: INSULIN GLARGINE 100 UNITS/ML SQ SCH ×2 (08:22→20:36)
[2021-02-05] MEDS: HEPARIN 5000 UNIT/ML 1 ML VIAL SQ SCH ×2 (08:23→21:00)
[2021-02-05] MEDS: GUAIFENESIN 600 MG SA TAB PO SCH ×2 (08:26→20:29)
[2021-02-05] MEDS ORDERED: FUROSEMIDE 40 MG/4 ML VIAL IV SCH (09:00)
--- NOTE | 2021-02-05 11:25 | EKG ---
Test Date: 2021-02-03 Test Time: 20:45:46 Size Maker: OLGA MEASUREMENT RESULTS: Intervals: Rate: 98 FL: 124 QRSD: 114 QT: 380 QTc: 485 [place]: P: 56 FL: 124 QRS: -44 T: 83 INTERPRETIVE STATEMENTS: Sinus rhythm with occasional premature ventricular complexes Possible Left atrial enlargement Left axis deviation Low voltage QRS Possible Anterolateral infarct, age undetermined Abnormal ECG Compared to ECG 02/03/2021 20:45:18 Ventricular premature complex(es) now present Left-axis deviation now present Low QRS voltage now present Left anterior fascicular block no longer present Myocardial infarct finding still present Electronically Signed On 02-05-21 11:20:47 INDEX CLERK by Dale East
--- NOTE | 2021-02-05 11:25 | EKG ---
Test Date: 2021-02-03 Test Time: 20:45:18 Blocker And Sewer: OLGA MEASUREMENT RESULTS: Intervals: Rate: 98 MA: 122 QRSD: 112 QT: 370 QTc: 472 [place]: P: 73 MA: 122 QRS: -49 T: 143 INTERPRETIVE STATEMENTS: Normal sinus rhythm Left anterior fascicular block Possible Anterolateral infarct, age undetermined Abnormal ECG Compared to ECG 01/07/2021 07:36:51 Left anterior fascicular block now present Left-axis deviation no longer present Prolonged QT interval no longer present Myocardial infarct finding still present Electronically Signed On 02-05-21 11:20:48 LITERARY AGENT by Dale East
--- NOTE | 2021-02-05 11:57 | P.CNS ---
Date of Consult: 02/05/21 Reason for Consult: Pulm HTN and CHF Primary Care Provider: None Chief Complaint: CHF exacerbation History of Present Illness: Age 45 metabolic synd and CHF, AW resp failure CRF, low grade fever C/o cough and congestion with purulent sputum Allergies No Known Allergies Allergy (Verified 01/02/21 09:20) Home Medications: Bumetanide [Bumex*] 1 tab PO DAILY 01/02/21 Carvedilol [Coreg] 1 tab PO DAILY 01/02/21 Clopidogrel Bisulfate [Plavix*] 1 tab PO DAILY 01/02/21 Gabapentin 1 tab PO TID 01/02/21 Insulin Glargine,Hum.rec.anlog [Lantus] 50 units SQ BID 01/02/21 Insulin Lispro [Humalog] See Protocol SQ TID 01/02/21 Isosorbide Mononitrate [Isosorbide Mononitrate ER] 1 tab PO DAILY 01/02/21 Lisinopril [Zestril] 1 tab PO DAILY 01/02/21 Rosuvastatin Calcium [Crestor] 1 tab PO DAILY 01/02/21 metOLazone [Metolazone] 1 tab PO DAILY 01/02/21 Allopurinol 50 mg PO SEECOM 02/03/21 Amlodipine [Norvasc] 5 mg PO DAILY 02/03/21 Aspirin [Aspirin EC 81 MG] 81 mg PO DAILY 02/03/21 predniSONE [Deltasone] 40 mg PO DAILY 02/05/21 - Past Medical/Surgical History Diabetic: Yes -: Systolic congestive heart failure -: CAD -: Diabetes mellitus type 2 -: Hypertension -: CKD4 -: Gout -: Cardiac stents -: Pacemaker/defibrillator Psychosocial/ Personal History: Patient lives at home with his fiance - Social History Smoking Status: Former smoker Alcohol use: No CD- Drugs: No Caffeine use: Yes Place of Residence: Home Review of Systems General: Weakness Respiratory: Cough, Shortness of Breath Physical Examination Temp Pulse Resp BP Pulse Ox 98.1 F 94 H 16 130/66 93 02/05/21 08:00 02/05/21 08:19 02/05/21 08:00 02/05/21 08:19 02/05/21 08:00 General: Alert, Oriented x3, Moderate distress Respiratory: Expiratory wheezes Cardiovascular: No edema, Regular rate/rhythm, Normal S1 S2 Gastrointestinal: Normal bowel sounds, Soft and benign - Problems (1) Advanced chronic obstructive pulmonary disease Current Visit: Yes Status: Acute Plan: poss COPD add BD and steroids and AB for now (2) CHF (congestive heart failure), NYHA class III Current Visit: Yes Status: Acute Plan: severe CHF with seconday pulm HTN/ hypoxic mild hypercapnea/ add pred Doxy CW BD sputum culture neg/ No tx for pulmonary HTN/ VQ scan Qualifiers: Congestive heart failure type: systolic
[2021-02-05 13:49] LABS: Blood Gas Oxyhemoglobin 91.4 % (94-97); Blood O2 Saturation 94.2 % (92-98.5)
[2021-02-05] MEDS: predniSONE 20 MG TAB PO SCH (17:00)
[2021-02-05] MEDS: DOXYCYCLINE 100 MG CAP PO SCH (17:00)
[2021-02-05] MEDS: ROSUVASTATIN 10 MG TAB PO SCH (20:25)
[2021-02-05] MEDS: BUMETANIDE 1 MG TABLET PO SCH (20:26)
--- NOTE | 2021-02-05 23:40 | P.CNS ---
Primary Care Provider: None Chief Complaint: CHF exacerbation Allergies No Known Allergies Allergy (Verified 01/02/21 09:20) Home Medications: Bumetanide [Bumex*] 1 tab PO DAILY 01/02/21 Carvedilol [Coreg] 1 tab PO DAILY 01/02/21 Clopidogrel Bisulfate [Plavix*] 1 tab PO DAILY 01/02/21 Gabapentin 1 tab PO TID 01/02/21 Insulin Glargine,Hum.rec.anlog [Lantus] 50 units SQ BID 01/02/21 Insulin Lispro [Humalog] See Protocol SQ TID 01/02/21 Isosorbide Mononitrate [Isosorbide Mononitrate ER] 1 tab PO DAILY 01/02/21 Lisinopril [Zestril] 1 tab PO DAILY 01/02/21 Rosuvastatin Calcium [Crestor] 1 tab PO DAILY 01/02/21 metOLazone [Metolazone] 1 tab PO DAILY 01/02/21 Allopurinol 50 mg PO SEECOM 02/03/21 Amlodipine [Norvasc] 5 mg PO DAILY 02/03/21 Aspirin [Aspirin EC 81 MG] 81 mg PO DAILY 02/03/21 predniSONE [Deltasone] 40 mg PO DAILY 02/05/21 - Past Medical/Surgical History Diabetic: Yes -: Systolic congestive heart failure -: CAD -: Diabetes mellitus type 2 -: Hypertension -: CKD4 -: Gout -: Cardiac stents -: Pacemaker/defibrillator Psychosocial/ Personal History: Patient lives at home with his fiance - Social History Smoking Status: Former smoker Alcohol use: No CD- Drugs: No Caffeine use: Yes Place of Residence: Home Physical Examination Temp Pulse Resp BP Pulse Ox 98.4 F 96 H 18 124/67 93 02/05/21 20:00 02/05/21 20:35 02/05/21 20:00 02/05/21 20:35 02/05/21 20:00
--- NOTE | 2021-02-06 05:57 | P.PN ---
Subjective Date of Service: 02/06/21 Primary Care Provider: None Chief Complaint: CHF exacerbation Subjective: Improving, Doing well Physical Examination - Vital Signs Temperature: 98.8 F Blood Pressure: 102/62 Pulse: 85 Respirations: 18 Pulse Ox (%): 94 Assessment & Plan Discharge Plan: Home Plan to discharge in: 24 Hours Physician Review Additional Text: COVID: negative CXR: COMPARISON: Chest Single View dated 01/07/2021; Chest Pa And Lat (2 Views) dated 01/02/2021 FINDINGS: Portable technique limits examination quality. Mild interstitial pulmonary edema is seen. The heart is moderately enlarged in size. Dual lead pacer device is present. IMPRESSION: Mild CHF. Follow up CXR 02/05/2021: COMPARISON: Chest Single View dated 02/03/2021; Chest Single View dated 01/07/2021; Chest Pa And Lat (2 Views) dated 01/02/2021 FINDINGS: Lines: None. Lungs: Pulmonary vascular congestion. Pleural: No significant pleural effusions or pneumothorax. Cardiac: Cardiomegaly. Pacemaker. Bones: No acute fractures. IMPRESSION: Mild edema/vascular congestion without significant change since 02/03/2021. Renal US: COMPARISON: No comparisons FINDINGS: The right kidney measures 13.3 x 5.1 x 4.0 cm. The left kidney measures 12.1 x 5.4 x 4.2 cm. Renal cortical thickness and echogenicity are normal. No hydronephrosis or suspicious renal mass. Bladder is contracted precluding accurate assessment. IMPRESSION: No hydronephrosis or suspicious renal mass. Bladder is contracted which occludes an accurate assessment. ECHO: CARDIAC HISTORY: CATHERIZATION: YES SURGERY: NO PROSTHETIC VALVE: NO PACEMAKER: YES MEASUREMENTS (cm) DIASTOLIC (NORMALS) SYSTOLIC (NORMALS) IVSd 1.2 (0.6-1.2) LA Diam 3.8 (1.9-4.0) LVEF 28% LVIDd 6.2 (3.5-5.7) LVIDs 5.4 (2.0-3.5) %FS 13% LVPWd 1.2 (0.6-1.2) Ao Diam 3.1 (2.0-3.7) 2 DIMENSIONAL ASSESSMENT: RIGHT ATRIUM: NORMAL LEFT ATRIUM: NORMAL RIGHT VENTRICLE: POSITIVE PERMANENT PACEMAKER LEFT VENTRICLE: DILATED TRICUSPID VALVE: NORMAL MITRAL VALVE: NORMAL PULMONIC VALVE: NORMAL AORTIC VALVE: NORMAL PERICARDIAL EFFUSION: TRACE AORTIC ROOT: NORMAL LEFT VENTRICULAR WALL MOTION: SEVERE GLOBAL HYPOKINESIS DOPPLER/COLOR FLOW: MILD TRICUSPID REGURGITATION. MODERATE PULMONARY HYPERTENSION COMMENTS: SEVERE GLOBAL HYPOKINESIS. MODERATE PULMONARY HYPERTENSION. EJECTION FRACTION 28%. PERMANENT PACEMAKER IN RIGHT VENTRICULAR APEX. TRACE PERICARDIAL EFFUSION. MODERATE FOR PULMONARY HYPERTENSION. RIGHT VENTRICULAR SYSTOLIC PRESSURE 60 mmHg Physical exam: General: Alert, In no apparent distress, Oriented x3 HEENT: Neck supple Respiratory: Patient much improved. Clear anteriorly. Currently on 4 L per nasal cannula Cardiovascular: Regular rate/rhythm, Normal S1 S2, no edema to the lower extremities Capillary refill: <2 Seconds Gastrointestinal: Normal bowel sounds, No tenderness Musculoskeletal: No tenderness Integumentary: No edema to the lower extremities Neurological: Normal speech, Normal strength at 5/5 x4 extr, Normal tone, Normal affect Impression: Acute hypoxic respiratory failure secondary to acute on chronic systolic congestive heart failure with ejection fraction 28% complicated with moderate pulmonary hypertension, trace pericardial effusion Elevated troponin secondary to ischemic demand with history of pacemaker Acute on chronic renal disease stage IV Diabetes type 2 with hyperglycemia Hypertension History of CAD History of CVA Diabetic neuropathy Hyperlipidemia COPD with history of tobacco abuse Plan: Acute hypoxic respiratory failure secondary to acute on chronic systolic congestive heart failure with ejection fraction 28% complicated with moderate pulmonary hypertension, trace pericardial effusion: Patient significantly im proved. Patient has been transitioned off IV diuretic therapy to Bumex and metolazone. Will decrease Bumex to 1 mg daily and continue metolazone 5 mg daily. Echo shows ejection fraction 28% with moderate pulmonary hypertension. Pulmonology added medication for COPD including steroid and antibiotic therapy. Pulmonology also recommends VQ scan to evaluate further. This is to be done today. Continue to wean off oxygen. Lisinopril discontinued due to his stage IV renal disease. Will discontinue Norvasc due to his low blood pressure. Anticipate continued improvement. Likely home in the next 24 to 48 hours. Elevated troponin secondary to ischemic demand with history of pacemaker: Spoke with cardiology. No intervention required. Echo shows ejection fraction 28% with pacemaker and moderate pulmonary hypertension. Trace pericardial effusion noted. Continue with aspirin 81 mg daily and Plavix 85 mg daily. Patient will need repeat echocardiogram in 1 to 3 months. Acute on chronic renal disease stage IV: Patient now off KAREN inhibitorlisinopril. Patient has been transitioned off IV diuretic therapy to Bumex. Patient also on metolazone. Will decrease Bumex to 1 mg daily today and continue metolazone 5 mg daily. Renal ultrasound shows no hydronephrosis or suspicious mass. Continue to monitor renal function. Will discuss with nephrology. Diabetes type 2 with hyperglycemia: A1c 8.4. Continue Accu-Cheks and sliding scale. Blood sugar well controlled. Currently on Lantus 35 units subcu twice d aily. Will adjust medication accordingly. Hypertension: Patient remains off lisinopril due to his chronic renal disease and low blood pressure. Blood pressure still slightly low. Will discontinue Norvasc. Continue with carvedilol 12.5 mg 1 pill twice daily. May need to make further adjustments in medication. History of CAD: Continue aspirin 81 mg daily, Plavix 25 mg daily, and Imdur 60 mg daily. History of CVA: Continue with aspirin and Plavix Diabetic neuropathy: Continue with Neurontin 800 mg 1 pill 3 times a day Hyperlipidemia: Continue with Crestor 40 mg daily COPD with history of tobacco abuse: Patient remains on Brovana, Xopenex and Atrovent added. Pulmonology recommended prednisone. Patient also on doxycycline. Continue to wean off oxygen. DVT PPX: Heparin Code status: Full Discharge Plan: Home at discharge w possible home oxygen. Patient is not want any home health at this time. Time Spent Managing Pts Care (In Minutes): 55
[2021-02-06 06:12] LABS: Absolute Lymphocytes (CBC) 0.9 K/uL (0.7-4.9); Basophils % 0.2 % (0-1.3); Hematocrit 37.4 % (39.6-49.0); Lymphocytes % 6.8 % (15.3-44.8)
[2021-02-06 07:25] LABS: Bilirubin Total 0.5 mg/dL (0.2-1.0); Magnesium 2.3 mg/dL (1.8-2.4); Potassium 3.9 mmol/L (3.5-5.1); Protein, Total 6.2 g/dL (6.4-8.2)
[2021-02-06] MEDS: ARFORMOTEROL TARTRATE 15 MCG/2 ML VIAL.NEB NEB SCH ×2 (08:00→20:00)
[2021-02-06] MEDS: ASPIRIN EC 81 MG TAB PO SCH (08:22)
[2021-02-06] MEDS: predniSONE 20 MG TAB PO SCH (08:22)
[2021-02-06] MEDS: GABAPENTIN 400 MG CAP PO SCH ×3 (08:22→20:22)
[2021-02-06] MEDS: ISOSORBIDE MONO SR 60 MG TAB PO SCH (08:22)
[2021-02-06] MEDS: GUAIFENESIN 600 MG SA TAB PO SCH ×2 (08:22→20:23)
[2021-02-06] MEDS: BUMETANIDE 1 MG TABLET PO SCH ×2 (08:23→08:51)
[2021-02-06] MEDS: DOXYCYCLINE 100 MG CAP PO SCH ×2 (08:23→20:22)
[2021-02-06] MEDS: INSULIN -REGULAR HUMAN 50 UNIT/0.5 ML ML SQ SCH ×4 (08:23→20:22)
[2021-02-06] MEDS: INSULIN GLARGINE 100 UNITS/ML SQ SCH ×2 (08:24→20:21)
[2021-02-06] MEDS: CLOPIDOGREL 75 MG TABLET PO SCH (08:24)
[2021-02-06] MEDS: carvediloL 12.5 MG TAB PO SCH ×2 (08:24→20:22)
[2021-02-06] MEDS: HEPARIN 5000 UNIT/ML 1 ML VIAL SQ SCH (08:25)
[2021-02-06] MEDS: METOLAZONE 5 MG TABLET PO SCH (08:31)
--- NOTE | 2021-02-06 09:21 | RAD REPORT ---
EXAM DESCRIPTION: US - Extrem Venous W Compress Alexander - 02/05/2021 10:36 pm CLINICAL HISTORY: RO DVT both legs, leg pain and swelling COMPARISON: None. TECHNIQUE: Real-time sonographic evaluation of the bilateral lower extremity common femoral, superfi cial femoral, popliteal and posterior tibial veins was performed. FINDINGS: Normal compressibility, flow augmentation, phasic flow and spontaneous flow are identified in the left and right lower extremity common femoral, superficial femoral, popliteal and posterior t ibial veins. No intraluminal filling defects seen. IMPRESSION: No DVT in either lower extremity.
--- NOTE | 2021-02-06 10:46 | RAD REPORT ---
EXAM DESCRIPTION: NM - Vent Perfusion VQ Scan - 02/06/2021 10:00 am CLINICAL HISTORY: Shortness of breath COMPARISON: February 05, 2021 chest x-ray TECHNIQUE: 17.6 Mci [id number] was administered by inhalation. First breath, equilibrium, and washout images of the lungs obtained 7.5 millicuries Technetium-99 MAA was administered intravenously. Anterior, posterior, lateral and ob lique views of the lungs were taken. FINDINGS: Perfusion images demonstrate demonstrates a moderate to large segmental defect involving t he anterior right lower lobe. This is larger than seen on ventilation images. Small defect of radiotracer involves the left lung base seen on perfusion images. This is larger than seen on ventilation images. IMPRESSION: The patient has a moderate to high probability for a pulmonary embolus
--- NOTE | 2021-02-06 12:25 | P.PN ---
Subjective Date of Service: 02/06/21 Primary Care Provider: None Chief Complaint: CHF exacerbation/ pulmonary embolism c/o cough and congestion Sputum has changed in color VQ post for Pe Review of Systems General: Weakness Respiratory: Cough, Shortness of Breath Physical Examination - Vital Signs Temperature: 98.8 F Blood Pressure: 102/62 Pulse: 85 Respirations: 18 Pulse Ox (%): 94 - Physical Exam General: Alert, Oriented x3, Mild distress Respiratory: Crackles/rales Cardiovascular: No edema, Normal S1 S2 Assessment & Plan - Problems (Diagnosis) (1) Advanced chronic obstructive pulmonary disease Current Visit: Yes Status: Acute Plan: NC reduce dose of pred Need Inhaler cw AB and reduce dose of pred (2) CHF (congestive heart failure), NYHA class III Current Visit: Yes Status: Acute Plan: Presumed recent PE full anticoagulation/ Renal function worse High riks for bleeding to DW cardilogy and Reanl Pt is on Plavix Qualifiers: Congestive heart failure type: systolic Physician Review Additional Text: COVID: negative CXR: COMPARISON: Chest Single View dated 01/07/2021; Chest Pa And Lat (2 Views) dated 01/02/2021 FINDINGS: Portable technique limits examination quality. Mild interstitial pulmonary edema is seen. The heart is moderately enlarged in size. Dual lead pacer device is present. IMPRESSION: Mild CHF. Follow up CXR 02/05/2021: COMPARISON: Chest Single View dated 02/03/2021; Chest Single View dated 01/07/2021; Chest Pa And Lat (2 Views) dated 01/02/2021 FINDINGS: Lines: None. Lungs: Pulmonary vascular congestion. Pleural: No significant pleural effusions or pneumothorax. Cardiac: Cardiomegaly. Pacemaker. Bones: No acute fractures. IMPRESSION: Mild edema/vascular congestion without significant change since 02/03/2021. Renal US: COMPARISON: No comparisons FINDINGS: The right kidney measures 13.3 x 5.1 x 4.0 cm. The left kidney measures 12.1 x 5.4 x 4.2 cm. Renal cortical thickness and echogenicity are normal. No hydronephrosis or suspicious renal mass. Bladder is contracted precluding accurate assessment. IMPRESSION: No hydronephrosis or suspicious renal mass. Bladder is contracted which occludes an accurate assessment. ECHO: CARDIAC HISTORY: CATHERIZATION: YES SURGERY: NO PROSTHETIC VALVE: NO PACEMAKER: YES MEASUREMENTS (cm) DIASTOLIC (NORMALS) SYSTOLIC (NORMALS) IVSd 1.2 (0.6-1.2) LA Diam 3.8 (1.9-4.0) LVEF 28% LVIDd 6.2 (3.5-5.7) LVIDs 5.4 (2.0-3.5) %FS 13% LVPWd 1.2 (0.6-1.2) Ao Diam 3.1 (2.0-3.7) 2 DIMENSIONAL ASSESSMENT: RIGHT ATRIUM: NORMAL LEFT ATRIUM: NORMAL RIGHT VENTRICLE: POSITIVE PERMANENT PACEMAKER LEFT VENTRICLE: DILATED TRICUSPID VALVE: NORMAL MITRAL VALVE: NORMAL PULMONIC VALVE: NORMAL AORTIC VALVE: NORMAL PERICARDIAL EFFUSION: TRACE AORTIC ROOT: NORMAL LEFT VENTRICULAR WALL MOTION: SEVERE GLOBAL HYPOKINESIS DOPPLER/COLOR FLOW: MILD TRICUSPID REGURGITATION. MODERATE PULMONARY HYPERTENSION COMMENTS: SEVERE GLOBAL HYPOKINESIS. MODERATE PULMONARY HYPERTENSION. EJECTION FRACTION 28%. PERMANENT PACEMAKER IN RIGHT VENTRICULAR APEX. TRACE PERICARDIAL EFFUSION. MODERATE FOR PULMONARY HYPERTENSION. RIGHT VENTRICULAR SYSTOLIC PRESSURE 60 mmHg Physical exam: General: Alert, In no apparent distress, Oriented x3 HEENT: Neck supple Respiratory: Patient much improved. Clear anteriorly. Currently on 4 L per nasal cannula Cardiovascular: Regular rate/rhythm, Normal S1 S2, no edema to the lower extremities Capillary refill: <2 Seconds Gastrointestinal: Normal bowel sounds, No tenderness Musculoskeletal: No tenderness Integumentary: No edema to the lower extremities Neurological: Normal speech, Normal strength at 5/5 x4 extr, Normal tone, Normal affect Impression: Acute hypoxic respiratory failure secondary to acute on chronic systolic congestive heart failure with ejection fraction 28% complicated with moderate pulmonary hypertension, trace pericardial effusion Elevated troponin secondary to ischemic demand with history of pacemaker Acute on chronic renal disease stage IV Diabetes type 2 with hyperglycemia Hypertension History of CAD History of CVA Diabetic neuropathy Hyperlipidemia COPD with history of tobacco abuse Plan: Acute hypoxic respiratory failure secondary to acute on chronic systolic congestive heart failure with ejection fraction 28% complicated with moderate pulmonary hypertension, trace pericardial effusion: Patient significantly improved. Patient has been transitioned off IV diuretic therapy to Bumex and metolazone. Will decrease Bumex to 1 mg daily and continue metolazone 5 mg daily. Echo shows ejection fraction 28% with moderate pulmonary hypertension. Pulmonology added medication for COPD including steroid and antibiotic therapy. Pulmonology also recommends VQ scan to evaluate further. This is to be done today. Continue to wean off oxygen. Lisinopril discontinued due to his stage IV renal disease. Will discontinue Norvasc due to his low blood pressure. Anticipate continued improvement. Likely home in the next 24 to 48 hours. Elevated troponin secondary to ischemic demand with history of pacemaker: Spoke with cardiology. No intervention required. Echo shows ejection fraction 28% with pacemaker and moderate pulmonary hypertension. Trace pericardial effusion noted. Continue with aspirin 81 mg daily and Plavix 85 mg daily. Patient will need repeat echocardiogram in 1 to 3 months. Acute on chronic renal disease stage IV: Patient now off KAREN inhibitorlisinopril. Patient has been transitioned off IV diuretic therapy to Bumex. Patient also on metolazone. Will decrease Bumex to 1 mg daily today and continue metolazone 5 mg daily. Renal ultrasound shows no hydronephrosis or suspicious mass. Continue to monitor renal function. Will discuss with nephrology. Diabetes type 2 with hyperglycemia: A1c 8.4. Continue Accu-Cheks and sliding scale. Blood sugar well controlled. Currently on Lantus 35 units subcu twice daily. Will adjust medication accordingly. Hypertension: Patient remains off lisinopril due to his chronic renal disease and low blood pressure. Blood pressure still slightly low. Will discontinue Norvasc. Continue with carvedilol 12.5 mg 1 pill twice daily. May need to make further adjustments in medication. History of CAD: Continue aspirin 81 mg daily, Plavix 25 mg daily, and Imdur 60 mg daily. History of CVA: Continue with aspirin and Plavix Diabetic neuropathy: Continue with Neurontin 800 mg 1 pill 3 times a day Hyperlipidemia: Continue with Crestor 40 mg daily COPD with history of tobacco abuse: Patient remains on Brovana, Xopenex and Atrovent added. Pulmonology recommended prednisone. Patient also on doxycycline. Continue to wean off oxygen. DVT PPX: Heparin Code status: Full Discharge Plan: Home at discharge w possible home oxygen. Patient is not want any home health at this time.
[2021-02-06] MEDS: SILVER SULFADIAZINE 1% 50 GM TOP SCH ×2 (15:43→20:51)
[2021-02-06] MEDS: ROSUVASTATIN 10 MG TAB PO SCH (20:22)
[2021-02-06] MEDS: predniSONE 10 MG TAB PO SCH (20:22)
[2021-02-06] MEDS: APIXABAN 5 MG TABLET PO SCH (20:23)
[2021-02-06 22:05] VITALS: BMI 34.7
[2021-02-07 04:00] LABS: Absolute Lymphocytes (CBC) 0.7 K/uL (0.7-4.9); Basophils % 0.1 % (0-1.3); Hematocrit 37.8 % (39.6-49.0); Lymphocytes % 7.5 % (15.3-44.8); MPV 9.2 fL (7.6-11.3); RBC Red Blood Cell Count 4.04 M/uL (4.33-5.43)
[2021-02-07 04:12] LABS: Magnesium 2.4 mg/dL (1.8-2.4); Potassium 4.1 mmol/L (3.5-5.1)
[2021-02-07] MEDS: INSULIN -REGULAR HUMAN 50 UNIT/0.5 ML ML SQ SCH ×4 (07:30→20:38)
--- NOTE | 2021-02-07 08:01 | RAD REPORT ---
EXAM DESCRIPTION: RAD - Chest Single View - 02/07/2021 6:06 am CLINICAL HISTORY: follow up COPD, CHF COMPARISON: February 05 TECHNIQUE: AP portable chest image was obtained 02/07/2021 6:06 am . FINDINGS: No new mass or consolidation. Interstitial pattern is increased slightly due to a more sha llow inspiratory effort. The vasculature and interstitial prominence are not substantially different. Heart size is slightly reduced from the prior day study. Interval change is minimal. Pacemaker remai ns in place. No measurable pleural effusion and no pneumothorax. No acute bony abnormality seen. No acute aortic findings suspected. IMPRESSION: Mild failure/ volume overload lung pattern has not changed substantially. Heart size is fractionally smaller.
[2021-02-07] MEDS: ARFORMOTEROL TARTRATE 15 MCG/2 ML VIAL.NEB NEB SCH ×2 (08:17→20:10)
[2021-02-07] MEDS: SILVER SULFADIAZINE 1% 50 GM TOP SCH ×2 (09:00→20:50)
[2021-02-07] MEDS: INSULIN GLARGINE 100 UNITS/ML SQ SCH ×3 (09:00→20:38)
[2021-02-07] MEDS: METOLAZONE 5 MG TABLET PO SCH (09:00)
--- NOTE | 2021-02-07 09:17 | P.PN ---
Subjective Date of Service: 02/07/21 Primary Care Provider: None Chief Complaint: CHF exacerbation/ pulmonary embolism Subjective: Doing well, Other (Patient requiring 6 liters per nc) Physical Examination - Vital Signs Temperature: 97.8 F Blood Pressure: 128/70 Pulse: 75 Respirations: 18 Pulse Ox (%): 97 Assessment & Plan Discharge Plan: Home Plan to discharge in: 48 Hours Physician Review Additional Text: COVID: negative CXR: COMPARISON: Chest Single View dated 01/07/2021; Chest Pa And Lat (2 Views) dated 01/02/2021 FINDINGS: Portable technique limits examination quality. Mild interstitial pulmonary edema is seen. The heart is moderately enlarged in size. Dual lead pacer device is present. IMPRESSION: Mild CHF. Renal US: COMPARISON: No comparisons FINDINGS: The right kidney measures 13.3 x 5.1 x 4.0 cm. The left kidney measures 12.1 x 5.4 x 4.2 cm. Renal cortical thickness and echogenicity are normal. No hydronephrosis or suspicious renal mass. Bladder is contracted precluding accurate assessment. IMPRESSION: No hydronephrosis or suspicious renal mass. Bladder is contracted which occludes an accurate assessment. ECHO: CARDIAC HISTORY: CATHERIZATION: YES SURGERY: NO PROSTHETIC VALVE: NO PACEMAKER: YES MEASUREMENTS (cm) DIASTOLIC (NORMALS) SYSTOLIC (NORMALS) IVSd 1.2 (0.6-1.2) LA Diam 3.8 (1.9-4.0) LVEF 28% LVIDd 6.2 (3.5-5.7) LVIDs 5.4 (2.0-3.5) %FS 13% LVPWd 1.2 (0.6-1.2) Ao Diam 3.1 (2.0-3.7) 2 DIMENSIONAL ASSESSMENT: RIGHT ATRIUM: NORMAL LEFT ATRIUM: NORMAL RIGHT VENTRICLE: POSITIVE PERMANENT PACEMAKER LEFT VENTRICLE: DILATED TRICUSPID VALVE: NORMAL MITRAL VALVE: NORMAL PULMONIC VALVE: NORMAL AORTIC VALVE: NORMAL PERICARDIAL EFFUSION: TRACE AORTIC ROOT: NORMAL LEFT VENTRICULAR WALL MOTION: SEVERE GLOBAL HYPOKINESIS DOPPLER/COLOR FLOW: MILD TRICUSPID REGURGITATION. MODERATE PULMONARY HYPERTENSION COMMENTS: SEVERE GLOBAL HYPOKINESIS. MODERATE PULMONARY HYPERTENSION. EJECTION FRACTION 28%. PERMANENT PACEMAKER IN RIGHT VENTRICULAR APEX. TRACE PERICARDIAL EFFUSION. MODERATE FOR PULMONARY HYPERTENSION. RIGHT VENTRICULAR SYSTOLIC PRESSURE 60 mmHg V/Q scan: COMPARISON: February 05, 2021 chest x-ray TECHNIQUE: 17.6 Mci [id number] was administered by inhalation. First breath, equilibrium, and washout images of the lungs obtained 7.5 millicuries Technetium-99 MAA was administered intravenously. Anterior, posterior, lateral and oblique views of the lungs were taken. FINDINGS: Perfusion images demonstrate demonstrates a moderate to large segmental defect involving the anterior right lower lobe. This is larger than seen on ventilation images. Small defect of radiotracer involves the left lung base seen on perfusion images. This is larger than seen on ventilation images. IMPRESSION: The patient has a moderate to high probability for a pulmonary embolus CXR 02/07/2021: COMPARISON: February 05 TECHNIQUE: AP portable chest image was obtained 02/07/2021 6:06 am . FINDINGS: No new mass or consolidation. Interstitial pattern is increased slightly due to a more shallow inspiratory effort. The vasculature and interstitial prominence are not substantially different. Heart size is slightly reduced from the prior day study. Interval change is minimal. Pacemaker remains in place. No measurable pleural effusion and no pneumothorax. No acute bony abnormality seen. No acute aortic findings suspected. IMPRESSION: Mild failure/ volume overload lung pattern has not changed substantially. Heart size is fractionally smaller. Physical exam: General: Alert, In no apparent distress, Oriented x3 HEENT: Neck supple Respiratory: Patient with better air movement bilateral. Currently on 6 L per nasal cannula. Cardiovascular: Regular rate/rhythm, Normal S1 S2, no edema to the lower extremities Capillary refill: <2 Seconds Gastrointestinal: Normal bowel sounds, No tenderness Musculoskeletal: No tenderness Integumentary: No edema to the lower extremities Neurological: Normal speech, Normal strength at 5/5 x4 extr, Normal tone, Normal affect Impression: Acute hypoxic respiratory failure secondary to acute on chronic systolic congestive heart failure with ejection fraction 28% complicated with moderate pulmonary hypertension, trace pericardial effusion, and VQ scan showing moderate to high probability of pulmonary believes him Elevated troponin secondary to ischemic demand with history of pacemaker Acute on chronic renal disease stage IV Diabetes type 2 with hyperglycemia Hypertension History of CAD History of CVA Diabetic neuropathy Hyperlipidemia COPD with history of tobacco abuse Plan: Acute hypoxic respiratory failure secondary to acute on chronic systolic congestive heart failure with ejection fraction 28% complicated with moderate pulmonary hypertension, trace pericardial effusion, and VQ scan showing moderate to high probability of pulmonary embolism: Patient reports improvement. But re quiring 6 L per nasal cannula. Renal function still compromised and worse since yesterday. Case discussed with nephrology. Will hold Bumex in metolazone today. Nephrology plans for renal ultrasound to further evaluate. We will also check bladder scan to rule out obstruction. Pulmonology saw patient yesterday. Pulmonology added oral steroid and medication for COPD. Antibiotic was also added. VQ scan was abnormal. Moderate to high probability of pulmonary embolism. Pulmonology recommends anticoagulation therapy. Eliquis started. Spoke with transition social worker about getting assistance for Eliquis. He is able to use a co-pay card for 24 months for his condition. It appears patient will be able to get Eliquis at discharge. No need for transitioning him to Coumadin at this time. Medications continue to be adjusted. Anticipate home in the next 48 to 72 hours, longer if requires Coumadin. Elevated troponin secondary to ischemic demand with history of pacemaker: Spoke with cardiology. No intervention required. Echo shows ejection fraction 28% with pacemaker and moderate pulmonary hypertension. Trace pericardial effusion noted. Continue with aspirin 81 mg daily and Plavix 85 mg daily. Patient will need repeat echocardiogram in 1 to 3 months. Acute on chronic renal disease stage IV: Patient now off KAREN inhibitorlisinopr il. Spoke with nephrology today. Hold Bumex and metolazone due to worsening renal function. Nephrology plans to recheck ultrasound of the kidney and bladder to evaluate further. Await further recommendations from nephrology. Diabetes type 2 with hyperglycemia: A1c 8.4. Continue Accu-Cheks and sliding scale. Continue to adjust Lantus for better control. Now on Lantus 40 units subcu twice daily. Will adjust medication accordingly. Hypertension: Patient remains off lisinopril due to his chronic renal disease and low blood pressure. Restart Norvasc at 2.5 mg 1 pill daily. Continue with carvedilol 12.5 mg 1 pill twice daily. May need to make further adjustments in medication. History of CAD: Continue aspirin 81 mg daily, Plavix 25 mg daily, and Imdur 60 mg daily. History of CVA: Continue with aspirin and Plavix Diabetic neuropathy: Continue with Neurontin 800 mg 1 pill 3 times a day Hyperlipidemia: Continue with Crestor 40 mg daily COPD with history of tobacco abuse: Patient remains on Brovana, Xopenex and Atrovent added. Pulmonology recommended to continue prednisone taper. Patient also on doxycycline. Continue to wean off oxygen. DVT PPX: Heparin Code status: Full Discharge Plan: Home at discharge w possible home oxygen. Patient is not want any home health at this time. Time Spent Managing Pts Care (In Minutes): 55
--- NOTE | 2021-02-07 09:18 | RAD REPORT ---
EXAM DESCRIPTION: US - Renal Ultrasound-Complete - 02/07/2021 9:05 am CLINICAL HISTORY: acute on chronic renal disease COMPARISON: Renal Ultrasound-Complete dated 02/04/2021 FINDINGS: Renal cortical thickness is normal. Echogenicity within normal range and unchanged from th e short interval February 04 study. No suspicious renal mass identifiable. No hydronephrosis has developed since February 04 imaging. Bladder is fully contracted precluding assessment. IMPRESSION: No hydronephrosis has developed since the short interval February 04 study. No significant finding or significant interval change since February 04.
[2021-02-07] MEDS: APIXABAN 5 MG TABLET PO SCH ×2 (09:57→20:37)
[2021-02-07] MEDS: ISOSORBIDE MONO SR 60 MG TAB PO SCH (09:57)
[2021-02-07] MEDS: GABAPENTIN 400 MG CAP PO SCH ×3 (09:57→20:37)
[2021-02-07] MEDS: predniSONE 10 MG TAB PO SCH ×2 (09:57→20:37)
[2021-02-07] MEDS: carvediloL 12.5 MG TAB PO SCH ×2 (09:57→20:37)
[2021-02-07] MEDS: GUAIFENESIN 600 MG SA TAB PO SCH ×2 (09:57→20:37)
[2021-02-07] MEDS: CLOPIDOGREL 75 MG TABLET PO SCH (09:58)
[2021-02-07] MEDS: AMLODIPINE 2.5 MG TAB PO SCH (09:58)
[2021-02-07] MEDS: DOXYCYCLINE 100 MG CAP PO SCH ×2 (09:58→20:37)
[2021-02-07] MEDS ORDERED: allopurinoL 100 MG TAB PO ONE (15:00)
[2021-02-07] MEDS ORDERED: ACETAMINOPHEN 500 MG TAB PO PRN (17:59)
[2021-02-07] MEDS: ROSUVASTATIN 10 MG TAB PO SCH (20:37)
[2021-02-08 05:47] LABS: Basophils % 0.2 % (0-1.3); MPV 8.9 fL (7.6-11.3); RBC Red Blood Cell Count 4.26 M/uL (4.33-5.43)
--- NOTE | 2021-02-08 05:50 | P.PN ---
Subjective Date of Service: 02/08/21 Primary Care Provider: None Chief Complaint: CHF exacerbation/ pulmonary embolism Subjective: Improving, Doing well Physical Examination - Vital Signs Temperature: 97.8 F Blood Pressure: 157/94 Pulse: 87 Respirations: 20 Pulse Ox (%): 97 Assessment & Plan Discharge Plan: Home Plan to discharge in: 24 Hours Physician Review Additional Text: COVID: negative CXR: COMPARISON: Chest Single View dated 01/07/2021; Chest Pa And Lat (2 Views) dated 01/02/2021 FINDINGS: Portable technique limits examination quality. Mild interstitial pulmonary edema is seen. The heart is moderately enlarged in size. Dual lead pacer device is present. IMPRESSION: Mild CHF. Renal US: COMPARISON: No comparisons FINDINGS: The right kidney measures 13.3 x 5.1 x 4.0 cm. The left kidney measures 12.1 x 5.4 x 4.2 cm. Renal cortical thickness and echogenicity are normal. No hydronephrosis or suspicious renal mass. Bladder is contracted precluding accurate assessment. IMPRESSION: No hydronephrosis or suspicious renal mass. Bladder is contracted which occludes an accurate assessment. ECHO: CARDIAC HISTORY: CATHERIZATION: YES SURGERY: NO PROSTHETIC VALVE: NO PACEMAKER: YES MEASUREMENTS (cm) DIASTOLIC (NORMALS) SYSTOLIC (NORMALS) IVSd 1.2 (0.6-1.2) LA Diam 3.8 (1.9-4.0) LVEF 28% LVIDd 6.2 (3.5-5.7) LVIDs 5.4 (2.0-3.5) %FS 13% LVPWd 1.2 (0.6-1.2) Ao Diam 3.1 (2.0-3.7) 2 DIMENSIONAL ASSESSMENT: RIGHT ATRIUM: NORMAL LEFT ATRIUM: NORMAL RIGHT VENTRICLE: POSITIVE PERMANENT PACEMAKER LEFT VENTRICLE: DILATED TRICUSPID VALVE: NORMAL MITRAL VALVE: NORMAL PULMONIC VALVE: NORMAL AORTIC VALVE: NORMAL PERICARDIAL EFFUSION: TRACE AORTIC ROOT: NORMAL LEFT VENTRICULAR WALL MOTION: SEVERE GLOBAL HYPOKINESIS DOPPLER/COLOR FLOW: MILD TRICUSPID REGURGITATION. MODERATE PULMONARY HYPERTENSION COMMENTS: SEVERE GLOBAL HYPOKINESIS. MODERATE PULMONARY HYPERTENSION. EJECTION FRACTION 28%. PERMANENT PACEMAKER IN RIGHT VENTRICULAR APEX. TRACE PERICARDIAL EFFUSION. MODERATE FOR PULMONARY HYPERTENSION. RIGHT VENTRICULAR SYSTOLIC PRESSURE 60 mmHg V/Q scan: COMPARISON: February 05, 2021 chest x-ray TECHNIQUE: 17.6 Mci [id number] was administered by inhalation. First breath, equilibrium, and washout images of the lungs obtained 7.5 millicuries Technetium-99 MAA was administered intravenously. Anterior, posterior, lateral and oblique views of the lungs were taken. FINDINGS: Perfusion images demonstrate demonstrates a moderate to large segmental defect involving the anterior right lower lobe. This is larger than seen on ventilation images. Small defect of radiotracer involves the left lung base seen on perfusion images. This is larger than seen on ventilation images. IMPRESSION: The patient has a moderate to high probability for a pulmonary embolus CXR 02/07/2021: COMPARISON: February 05 TECHNIQUE: AP portable chest image was obtained 02/07/2021 6:06 am . FINDINGS: No new mass or consolidation. Interstitial pattern is increased slightly due to a more shallow inspiratory effort. The vasculature and interstitial prominence are not substantially different. Heart size is slightly reduced from the prior day study. Interval change is minimal. Pacemaker remains in place. No measurable pleural effusion and no pneumothorax. No acute bony abnormality seen. No acute aortic findings suspected. IMPRESSION: Mild failure/ volume overload lung pattern has not changed substantially. Heart size is fractionally smaller. Physical exam: General: Alert, In no apparent distress, Oriented x3 HEENT: Neck supple Respiratory: Patient with better air movement bilateral. Currently on 6 L per nasal cannula. Cardiovascular: Regular rate/rhythm, Normal S1 S2, no edema to the lower extremities Capillary refill: <2 Seconds Gastrointestinal: Normal bowel sounds, No tenderness Musculoskeletal: No tenderness Integumentary: No edema to the lower extremities Neurological: Normal speech, Normal strength at 5/5 x4 extr, Normal tone, Normal affect Impression: Acute hypoxic respiratory failure secondary to acute on chronic systolic congestive heart failure with ejection fraction 28% complicated with moderate pulmonary hypertension, trace pericardial effusion, and VQ scan showing moderate to high probability of pulmonary believes him Elevated troponin secondary to ischemic demand with history of pacemaker Acute on chronic renal disease stage IV Diabetes type 2 with hyperglycemia Hypertension History of CAD History of CVA Diabetic neuropathy Hyperlipidemia COPD with history of tobacco abuse Plan: Acute hypoxic respiratory failure secondary to acute on chronic systolic congestive heart failure with ejection fraction 28% complicated with moderate pulmonary hypertension, trace pericardial effusion, and VQ scan showing moderate to high probability of pulmonary embolism: Patient doing well. Patient off oxygen. Renal function improved. Patient can be discharged home today. Recommend to hold diuretic therapyBumex and metolazone for at least 1 more day then restart at home. Pulmonology recommends to continue steroid taper and provide medication for COPD at discharge. Patient will continue with doxycycline as well for 7 days. For his pulmonary embolism, patient will continue with Eliquis. Patient should follow-up with pulmonology, nephrology and cardiology as an outpatient. Patient plans to establish care. Will discharge home today. Elevated troponin secondary to ischemic demand with history of pacemaker: Spoke with cardiology. No intervention required. Echo shows ejection fraction 28% with pacemaker and moderate pulmonary hypertension. Trace pericardial effusion noted. Continue with aspirin 81 mg daily and Plavix 85 mg daily. Patient will need repeat echocardiogram in 1 to 3 months. Acute on chronic renal disease stage IV: Renal function improved. Hold Bumex and metolazone for 1 more day then restart. Diabetes type 2 with hyperglycemia: A1c 8.4. Continue Accu-Cheks and sliding scale. Continue to adjust Lantus for better control. Continue Lantus 42 units subcu twice daily at home Hypertension: Patient remains off lisinopril due to his chronic renal disease and low blood pressure. Continue Norvasc 5 mg 1 pill daily. Continue with carvedilol 12.5 mg 1 pill twice daily. May need to make further adjustments in medication. History of CAD: Continue aspirin 81 mg daily, Plavix 25 mg daily, and Imdur 60 mg daily. History of CVA: Continue with aspirin and Plavix Diabetic neuropathy: Continue with Neurontin 800 mg 1 pill 3 times a day Hyperlipidemia: Continue with Crestor 40 mg daily COPD with history of tobacco abuse: Patient will continue with steroid taper and doxycycline for total of 7 days. Patient will continue with COPD medication at discharge DVT PPX: Heparin Code status: Full Discharge Plan: Home at discharge Time Spent Managing Pts Care (In Minutes): 55
[2021-02-08 06:02] LABS: Magnesium 2.5 mg/dL (1.8-2.4); Potassium 4.2 mmol/L (3.5-5.1)
--- NOTE | 2021-02-08 08:00 | P.DS ---
Admission Date: 02/03/21 Discharge Date: 02/08/21 Primary Care Provider: None Disposition: ROUTINE DISCHARGE Discharge Condition: GOOD Reason for Admission: CHF exacerbation/ pulmonary embolism Consultations: Cardiology-Dr. East Pulmonary-Dr. Hodgson Nephrology-Dr. Heredia Procedures: COVID: negative CXR: COMPARISON: Chest Single View dated 01/07/2021; Chest Pa And Lat (2 Views) dated 01/02/2021 FINDINGS: Portable technique limits examination quality. Mild interstitial pulmonary edema is seen. The heart is moderately enlarged in size. Dual lead pacer device is present. IMPRESSION: Mild CHF. Renal US: COMPARISON: No comparisons FINDINGS: The right kidney measures 13.3 x 5.1 x 4.0 cm. The left kidney measures 12.1 x 5.4 x 4.2 cm. Renal cortical thickness and echogenicity are normal. No hydronephrosis or suspicious renal mass. Bladder is contracted precluding accurate assessment. IMPRESSION: No hydronephrosis or suspicious renal mass. Bladder is contracted which occludes an accurate assessment. ECHO: CARDIAC HISTORY: CATHERIZATION: YES SURGERY: NO PROSTHETIC VALVE: NO PACEMAKER: YES MEASUREMENTS (cm) DIASTOLIC (NORMALS) SYSTOLIC (NORMALS) IVSd 1.2 (0.6-1.2) LA Diam 3.8 (1.9-4.0) LVEF 28% LVIDd 6.2 (3.5-5.7) LVIDs 5.4 (2.0-3.5) %FS 13% LVPWd 1.2 (0.6-1.2) Ao Diam 3.1 (2.0-3.7) 2 DIMENSIONAL ASSESSMENT: RIGHT ATRIUM: NORMAL LEFT ATRIUM: NORMAL RIGHT VENTRICLE: POSITIVE PERMANENT PACEMAKER LEFT VENTRICLE: DILATED TRICUSPID VALVE: NORMAL MITRAL VALVE: NORMAL PULMONIC VALVE: NORMAL AORTIC VALVE: NORMAL PERICARDIAL EFFUSION: TRACE AORTIC ROOT: NORMAL LEFT VENTRICULAR WALL MOTION: SEVERE GLOBAL HYPOKINESIS DOPPLER/COLOR FLOW: MILD TRICUSPID REGURGITATION. MODERATE PULMONARY HYPERTENSION COMMENTS: SEVERE GLOBAL HYPOKINESIS. MODERATE PULMONARY HYPERTENSION. EJECTION FRACTION 28%. PERMANENT PACEMAKER IN RIGHT VENTRICULAR APEX. TRACE PERICARDIAL EFFUSION. MODERATE FOR PULMONARY HYPERTENSION. RIGHT VENTRICULAR SYSTOLIC PRESSURE 60 mmHg V/Q scan: COMPARISON: February 05, 2021 chest x-ray TECHNIQUE: 17.6 Mci [id number] was administered by inhalation. First breath, equilibrium, and washout images of the lungs obtained 7.5 millicuries Technetium-99 MAA was administered intravenously. Anterior, posterior, lateral and oblique views of the lungs were taken. FINDINGS: Perfusion images demonstrate demonstrates a moderate to large segmental defect involving the anterior right lower lobe. This is larger than seen on ventilation images. Small defect of radiotracer involves the left lung base seen on perfusion images. This is larger than seen on ventilation images. IMPRESSION: The patient has a moderate to high probability for a pulmonary embolus CXR 02/07/2021: COMPARISON: February 05 TECHNIQUE: AP portable chest image was obtained 02/07/2021 6:06 am . FINDINGS: No new mass or consolidation. Interstitial pattern is increased slightly due to a more shallow inspiratory effort. The vasculature and interstitial prominence are not substantially different. Heart size is slightly reduced from the prior day study. Interval change is minimal. Pacemaker remains in place. No measurable pleural effusion and no pneumothorax. No acute bony abnormality seen. No acute aortic findings suspected. IMPRESSION: Mild failure/ volume overload lung pattern has not changed substantially. Heart size is fractionally smaller. Medical Problem List: Acute hypoxic respiratory failure secondary to acute on chronic systolic congestive heart failure with ejection fraction 28% complicated with moderate pulmonary hypertension, trace pericardial effusion, and VQ scan showing moderate to high probability of pulmonary believes him Elevated troponin secondary to ischemic demand with history of pacemaker Acute on chronic renal disease stage IV Diabetes type 2 with hyperglycemia Hypertension History of CAD History of CVA Diabetic neuropathy Hyperlipidemia COPD with history of tobacco abuse Brief History of Present Illness: 45-year-old male with history of chronic systolic congestive heart failure, CKD 4, hypertension, CAD, diabetes most type II presents emergency department for shortness of breath. Patient was found to be hypoxic on room air by EMS with saturations in the 80s. Patient was evaluated in the emergency department labs are significant for creatinine 2.47 GFR 28 BUN 62 glucose 325 troponin 0 0.79 BNP 10,892 Covid test negative chest x-ray demonstrates mild CHF pattern. Patient did have low-grade fever to 100.8, patient reports that multiple family members at home with similar respiratory symptoms. Patient was admitted for further evaluation and treatment. Hospital Course: Patient presented with acute hypoxic respiratory failure secondary to acute on chronic systolic CHF with ejection fraction 28% complicated with moderate pulmonary hypertension, trace pericardial effusion and VQ scan showing moderate to high probability of pulmonary embolism. During the course of the stay patient was seen by nephrology, pulmonology and cardiology. Patient has done well. Patient was started on Eliquis during the course of his stay. His condition improved. Patient also found to have COPD and started on medication. Medications were adjusted during the course of his stay. For his CHF, patient will continue with 1500 cc/day fluid restriction and low-salt diet. Patient should monitor his weight daily. If his weight increases by more than 5 pounds he is to contact his PCP or certified corporate travel executive for further recommendation. At discharge patient can restart his diuretic therapy after 1 day. He will continue with Bumex 1 mg daily and metolazone 5 mg daily. Please note lisinopril was discontinued due to his renal disease. Patient plans to establish care locally in the area. Recommend to establish with a PCP to follow-up this hospitalization. At discharge patient should follow-up with cardiology to further address his CHF. For his pulmonary embolism, patient will continue with Eliquis 10 mg twice daily for 5 more days then 5 mg twice daily indefinitely. Patient will need to follow-up with pulmonology in 1 to 2 weeks to follow-up his hospitalization to further address his condition. Education on pulmonary embolism and Eliquis will be provided. For his COPD, patient has done well and in the course of his stay. No need for oxygen at discharge. At discharge patient will continue with prednisone 10 mg daily for 7 days. The patient will also be started on Symbicort 2 puffs twice daily and proair 2 puffs 3 times a day as needed for shortness of breath. Education on COPD provided. Recommend follow-up with pulmonology to further monitor and adjust medication. Patient had elevated troponin secondary to ischemic demand. Patient with history of pacemaker, CAD, CVA and hypertension. Medications were adjusted during the course of his stay due to his chronic renal disease. Patient will no longer take lisinopril. Aspirin has been discontinued since the patient will be on Eliquis and Plavix at discharge. At discharge patient will continue with Plavix 75 mg daily, Imdur ER 60 mg daily, Norvasc 5 mg daily, and carvedilol 12.5 mg 1 pill twice daily. Recommend to maintain blood pressure less than 130/80. If blood pressure remains above 140/90 further adjustment may be required. This can be done with the help of his PCP or cardiology. Recommend follow-up with cardiology to further monitor and adjust medication. Patient with diabetic neuropathy. At discharge patient will continue with Neurontin 800 mg 1 pill 3 times a day. Patient with hyperlipidemia. At discharge patient will continue with Crestor 40 mg daily. Patient with diabetes mellitus type 2 with hyperglycemia. Hemoglobin A1c 8.4. At discharge recommend to maintain blood sugar less than 140 fasting and less than 200 for meals. Further adjustment can be done by his PCP. At discharge patient will continue with Lantus 50 units subcu twice daily and Humalog sliding scale. Recommend to recheck hemoglobin A1c every 3 months to monitor his progress. Further adjustment in his medication may be required if blood sugar remains above 200. Follow-up with PCP to further address. Patient with gout. At discharge patient will continue with allopurinol. Patient with tobacco abuse. Tobacco cessation addressed in detail. Vital Signs/Physical Exam: Temp Pulse Resp BP Pulse Ox 97.8 F 87 20 157/94 H 97 02/08/21 07:59 02/08/21 07:59 02/08/21 07:59 02/08/21 07:59 02/08/21 07:59 General: Alert, In no apparent distress, Oriented x3, Cooperative HEENT: Atraumatic Neck: Supple Respiratory: Clear to auscultation bilaterally, Normal air movement Cardiovascular: Normal pulses, Regular rate/rhythm Gastrointestinal: Normal bowel sounds, No tenderness, No masses, No rebound, No guarding Integumentary: No tenderness/swelling, No erythema, No warmth, No cyanosis Neurological: Normal speech, Normal strength at 5/5 x4 extr, Normal tone, Normal affect Laboratory Data at Discharge: WBC 12.70 K/uL (4.3-10.9) H D 02/08/21 05:10 Hgb 13.2 g/dL (13.6-17.9) L 02/08/21 05:10 Hct 40.0 % (39.6-49.0) 02/08/21 05:10 Plt Count 251 K/uL (152-406) D 02/08/21 05:10 PT 14.6 SECONDS (9.5-12.5) H 02/03/21 19:15 INR 1.27 02/03/21 19:15 Sodium 140 mmol/L (136-145) 02/08/21 05:10 Potassium 4.2 mmol/L (3.5-5.1) 02/08/21 05:10 BUN 104 mg/dL (7-18) H 02/08/21 05:10 Creatinine 3.75 mg/dL (0.55-1.3) H 02/08/21 05:10 Glucose 248 mg/dL (74-106) H 02/08/21 05:10 Magnesium 2.5 mg/dL (1.8-2.4) H 02/08/21 05:10 Total Bilirubin 0.5 mg/dL (0.2-1.0) 02/06/21 05:39 AST 20 U/L (15-37) 02/06/21 05:39 ALT 27 U/L (12-78) 02/06/21 05:39 Alkaline Phosphatase 89 U/L (45-117) 02/06/21 05:39 Troponin I 0.62 ng/mL (0.0-0.045) H* 02/04/21 05:34 Triglycerides 99 mg/dL (<150) 02/04/21 05:34 Cholesterol 165 mg/dL (<200) 02/04/21 05:34 HDL Cholesterol 42 mg/dL (40-60) 02/04/21 05:34 Cholesterol/HDL Ratio 3.93 02/04/21 05:34 Home Medications: Bumetanide [Bumex*] 1 tab PO DAILY 01/02/21 Carvedilol [Coreg] 1 tab PO DAILY 01/02/21 Clopidogrel Bisulfate [Plavix*] 1 tab PO DAILY 01/02/21 Gabapentin 1 tab PO TID 01/02/21 Insulin Glargine,Hum.rec.anlog [Lantus] 50 units SQ BID 01/02/21 Insulin Lispro [Humalog] See Protocol SQ TID 01/02/21 Isosorbide Mononitrate [Isosorbide Mononitrate ER] 1 tab PO DAILY 01/02/21 Rosuvastatin Calcium [Crestor] 1 tab PO DAILY 01/02/21 metOLazone [Metolazone] 1 tab PO DAILY 01/02/21 Allopurinol 50 mg PO SEECOM 02/03/21 Amlodipine [Norvasc*] 5 mg PO DAILY 02/03/21 Albuterol Sulfate [Proair Hfa] 2 puff IH TID PRN #1 hfa.aer.ad 02/08/21 Apixaban [Eliquis] 5 mg PO SEECOM #70 tablet 02/08/21 Budesonide/Formoterol Fumarate [Symbicort 160-4.5 Mcg Inhaler] 2 puff IH BID #1 hfa.aer.ad 02/08/21 Doxycycline Hyclate 100 mg PO BID #10 tablet 02/08/21 predniSONE [Deltasone*] 10 mg PO DAILY #7 tab 02/08/21 New Medications: predniSONE [Deltasone*] 10 mg PO DAILY #7 tab Doxycycline Hyclate 100 mg PO BID #10 tablet Apixaban [Eliquis] 5 mg PO SEECOM #70 tablet Albuterol Sulfate [Proair Hfa] 2 puff IH TID PRN #1 hfa.aer.ad PRN Reason: Shortness Of Breath Budesonide/Formoterol Fumarate [Symbicort 160-4.5 Mcg Inhaler] 2 puff IH BID #1 hfa.aer.ad Physician Discharge Instructions: Patient presented with acute hypoxic respiratory failure secondary to acute on chronic systolic CHF with ejection fraction 28% complicated with moderate pulmonary hypertension, trace pericardial effusion and VQ scan showing moderate to high probability of pulmonary embolism. During the course of the stay patient was seen by nephrology, pulmonology and cardiology. Patient has done well. Patient was started on Eliquis during the course of his stay. His condition improved. Patient also found to have COPD and started on medication. Medications were adjusted during the course of his stay. For his CHF, patient will continue with 1500 cc/day fluid restriction and low-salt diet. Patient should monitor his weight daily. If his weight increases by more than 5 pounds he is to contact his PCP or certified corporate travel executive for further recommendation. At discharge patient can restart his diuretic therapy after 1 day. He will continue with Bumex 1 mg daily and metolazone 5 mg daily. Please note lisinopril was discontinued due to his renal disease. Patient plans to establish care locally in the area. Recommend to establish with a PCP to follow-up this hospitalization. At discharge patient should follow-up with cardiology to further address his CHF. For his pulmonary embolism, patient will continue with Eliquis 10 mg twice daily for 5 more days then 5 mg twice daily indefinitely. Patient will need to follow-up with pulmonology in 1 to 2 weeks to follow-up his hospitalization to further address his condition. Education on pulmonary embolism and Eliquis will be provided. For his COPD, patient has done well and in the course of his stay. No need for oxygen at discharge. At discharge patient will continue with prednisone 10 mg daily for 7 days. The patient will also be started on Symbicort 2 puffs twice daily and proair 2 puffs 3 times a day as needed for shortness of breath. Education on COPD provided. Recommend follow-up with pulmonology to further monitor and adjust medication. Patient had elevated troponin secondary to ischemic demand. Patient with history of pacemaker, CAD, CVA and hypertension. Medications were adjusted during the course of his stay due to his chronic renal disease. Patient will no longer take lisinopril. Aspirin has been discontinued since the patient will be on Eliquis and Plavix at discharge. At discharge patient will continue with Plavix 75 mg daily, Imdur ER 60 mg daily, Norvasc 5 mg daily, and carvedilol 12 .5 mg 1 pill twice daily. Recommend to maintain blood pressure less than 130/80. If blood pressure remains above 140/90 further adjustment may be required. This can be done with the help of his PCP or cardiology. Recommend follow-up with cardiology to further monitor and adjust medication. Patient with diabetic neuropathy. At discharge patient will continue with Neurontin 800 mg 1 pill 3 times a day. Patient with hyperlipidemia. At discharge patient will continue with Crestor 40 mg daily. Patient with diabetes mellitus type 2 with hyperglycemia. Hemoglobin A1c 8.4. At discharge recommend to maintain blood sugar less than 140 fasting and less than 200 for meals. Further adjustment can be done by his PCP. At discharge patient will continue with Lantus 50 units subcu twice daily and Humalog sliding scale. Recommend to recheck hemoglobin A1c every 3 months to monitor his progress. Further adjustment in his medication may be required if blood sugar remains above 200. Follow-up with PCP to further address. Patient with gout. At discharge patient will continue with allopurinol. Patient with tobacco abuse. Tobacco cessation addressed in detail. Diet: ADA Activity: Ad thu Followup: NONE,NONE [Primary Care Provider] - Time spent managing pt's care (in minutes): 55
[2021-02-08] MEDS: ARFORMOTEROL TARTRATE 15 MCG/2 ML VIAL.NEB NEB SCH (08:05)
[2021-02-08 08:10] VITALS: BP 160/91; TEMP 97.7
[2021-02-08] MEDS: APIXABAN 5 MG TABLET PO SCH (08:26)
[2021-02-08] MEDS: DOXYCYCLINE 100 MG CAP PO SCH (08:26)
[2021-02-08] MEDS: BUMETANIDE 1 MG TABLET PO SCH (08:27)
[2021-02-08] MEDS: CLOPIDOGREL 75 MG TABLET PO SCH (08:27)
[2021-02-08] MEDS: GUAIFENESIN 600 MG SA TAB PO SCH (08:28)
[2021-02-08] MEDS: carvediloL 12.5 MG TAB PO SCH (08:28)
[2021-02-08] MEDS: AMLODIPINE 2.5 MG TAB PO SCH (08:28)
[2021-02-08] MEDS: ISOSORBIDE MONO SR 60 MG TAB PO SCH (08:28)
[2021-02-08] MEDS: GABAPENTIN 400 MG CAP PO SCH (08:28)
[2021-02-08] MEDS: INSULIN -REGULAR HUMAN 50 UNIT/0.5 ML ML SQ SCH (08:29)
[2021-02-08] MEDS: predniSONE 10 MG TAB PO SCH (08:29)
[2021-02-08 08:54] VITALS: O2SAT 94
[2021-02-08] MEDS ORDERED: INSULIN GLARGINE 100 UNITS/ML SQ SCH (09:00)
[2021-02-08] MEDS ORDERED: allopurinoL 100 MG TAB PO SCH (09:00)
--- OUTSIDE RECORDS SUMMARY | 2021-02-08 17:30 | XMS REPORT | Continuity of Care Document ---
:[address] [facility] t Address [address] [place] [address] Care Team Providers Name Role Phone Jose Francisco DIDACTIC INSTRUCTOR, Nuria Primary Care Physician CONTRERAS Attending Clinician Unavailable CONTRERAS Attending Clinician [phone] FRANZ Attending Clinician Unavailable FRANZ Attending Clinician [phone] NURSE Attending Clinician Unavailable DR PATRICK Attending Clinician Unavailable DR DIANE Attending Clinician Unavailable Kathleen Riddle MD Attending Clinician Ayden SCHULER Attending Clinician Nuvia Lugo MD Attending Clinician Jackie Nguyen MD Attending Clinician Deacon Nair MD Attending Clinician JOSE FRANCISCO Attending Clinician Unavailable OMSTEFANI Attending Clinician [phone] IRIZARRY Attending Clinician Unavailable IRIZARRY Attending Clinician [phone] Ayden Serra MD Attending Clinician Landry SCHULER Attending Clinician Lilliam SCHULER Attending Clinician Neida Lugo MD Attending Clinician Warren Blunt MD Attending Clinician LUBNA Attending Clinician Unavailable LUBNA Attending Clinician [phone] JERRY HUMMEL Attending Clinician Unavailable AYDEN SERRA Attending Clinician Unavailable [facility] Attending Clinician Unavailable SIDDHARTHA Attending Clinician Unavailable ENRIQUE Attending Clinician [phone] JONAS Attending Clinician Unavailable MIMA MARQUIS Attending Clinician Unavailable RADHA MURGUIA Attending Clinician Unavailable KASSI KULKARNI Attending Clinician Unavailable MANAV Attending Clinician [phone] SWETHA Attending Clinician Unavailable VERObdulia Attending Clinician Unavailable DELAROSA Attending Clinician [phone] CANAMABecky Attending Clinician Unavailable TIMA Attending Clinician Unavailable MICAH Attending Clinician Unavailable FOREIGN Attending Clinician Unavailable SHELBY Attending Clinician [phone] DESTINY Attending Clinician Unavailable ALLISON Attending Clinician Unavailable DR PATRICK Admitting Clinician Unavailable DR DIANE Admitting Clinician Unavailable AYDEN Admitting Clinician Unavailable LILLIAM Admitting Clinician Unavailable ALLIE HUTCHINS Admitting Clinician Unavailable KATHIE CHAMBERLAIN Admitting Clinician Unavailable ERICA RIDLEY Admitting Clinician Unavailable EVA Admitting Clinician Unavailable BE WILLS Admitting Clinician Unavailable SIRENA WALTON Admitting Clinician Unavailable Payers Payer Name Policy Type Policy Number Effective Date Expiration Date S renetta JAVI CARE - [id number] GENERIC - JAVI CARE [facility]-MEDICAID - [id number] MEDICAID MEDICARE PART A [id number] 2019 \\T\\ B - MEDICARE 00:00:00 Problems Condition Condition Condition Status Onset Resolution Last Treating Co mments Source Name Details Category Date Date Treatment Clinician Date Diabetic Di[facility] Acute on Acute on Disease Active 2017-03 [facility] congestive congestive 00:00: Me dical heart heart 00 Center failure, failure, unspecifie unspecifie d heart d heart failure failure type type CHF CHF Disease Active [facility]congestiv (congestiv 6-13 [facility] - e heart e heart 00:00: Medical failure) failure) 00 Center Dyspnea, Dyspnea, Disease [facility] un[facility] un[facility]ifie [facility]13 [facility] - d type d type 00:00: Medical 00 Center CHF CHF Disease Active [facility] exacerbati exacerbati 3-15 [facility] - on on 00:00: Medical 00 Center Acute on Acute on Disease [facility] - systolic systolic 00:00: Medica l congestive congestive 00 Ce nter heart heart failure failure Acute on Acute on Disease Active 2016-03 [facility] congestive congestive 00:00: Me dical heart heart 00 Center failure, failure, unspecifie unspecifie d d congestive congestive heart heart failure failure type type Hypercalce Hypercalce Disease Active [facility] jose jose 8-06 [facility] 00 Center Chest pain Chest pain Disease Active 2015-[address] 0-18 [facility] 00 [facility] Unstable Unstable Disease Active 2015-03 [facility] Abnormal Abnormal Disease Active 2015-03 [facility] E[facility] 0[facility]12 [facility] 00 Center NSTEMI NSTEMI Disease Active 2015-[address] (non-ST (non-ST 0-12 [facility] - elevated elevated 00:00: Medica l myocardial myocardial 00 Ce nter infarction infarction ) ) Acute CVA Acute CVA Disease Active 2013-[address] (cerebrova (cerebrova 0-30 [facility] - scular scular 00:00: Medical accident) accident) 00 Cent er Infestatio Infestatio Disease Active Overview : [facility] by 10[facility] 00:00: g of this edical scabiei scabiei 00 note Center might be different from the original. ICD9 DX Proj Mgr Seizure Seizure Disease Active [facility] Tobacco Tobacco Disease Active [facility] abuse abuse 10-16 [facility] disorder disorder 00:00: Medica l 00 Center Stroke Stroke Disease Active [facility] 10[facility] Obesity, Obesity, Disease [facility] morbid morbid [facility] Cerebral Cerebral Disease Active Overview: [facility] infarction infarction 10-15 [facility] - 00:[facility]: g of this Medical 00 note Center might be different from the original. UPDATED BY ICD10 SNOMED/IM O UPDATES Hypertensi Hypertensi Disease Active [facility] Diabetes Diabetes Disease Active [facility] mellitus mellitus [facility] Diabetic Diabetic Disease Active [facility] neuropathy neuropathy [facility] Hyperlipid Hyperlipid Disease Active [facility] emia emia [facility] Carpal Carpal Disease Active [facility] tunnel tunnel [facility] - syndrome syndrome Medica [facility] Allergies, Adverse Reactions, Alerts Allergy Allergy Status Severity Reaction(s) Onset Inactive Treating Comm ents Source Name Type Date Date Clinician NO KNOWN Allergy Active [facility] ALLERGIE [facility] Social History Social Habit Start Date Stop Date Quantity Comments Source Alcohol intake 2019-07-03 [facility] History of tobacco 2019-04-04 Current non-smoker [facility] use 00:00:00 Nutritional 2019-04-04 [facility] observable 00:00:00 Tobacco use and 2019-04-04 : No Details [facility] exposure 00:00:00 Available Quantity Details - : No Details Available Health-related 2019-04-04 [facility] Behavior 00:00:[address] [facility] - [facility] Frequency Medical Center History SDOH [facility] Alcohol Std Drinks [facility] History SDOH [facility] - Alcohol Binge Medical Matty ter Sex Assigned At Male [facility] Cigarettes smoked 2016-01-08 2016-01-[address] [facility] - current (pack per 00:00:00 00:00:00 Medical Center day) - Reported Cigarette 2016-01-08 2016-01-[address] [facility] - pack-years 00:00:00 00:00:00 [facility] Alcohol Comment 2012-10-15 2012-10-[address] [facility] - 00:00:00 00:00:00 [facility] Smoking Status Start Date Stop Date Source Former smoker 2020-04-26 00:00:00 2020-04-26 00:00:00 [facility] Unknown if ever smoked [facility] Never smoker [facility] Medications Ordered Filled Start Stop Current Ordering Indication Dosage Frequency Signature Comments Components Source Medication Medication Date Date Medication? Clinician (SIG) Name Name allopurinol 2020-03 No take 1/2 Dx: Ac cess 100 mg 1-05 tablet (50 M10.449, [facility] tablet 00:00: mg) by N18.32 00 oral route every OTHER day allopurinol 2020-03 No take 1/2 Dx: Ac cess 100 mg 1-05 tablet (50 M10.449, [facility] tablet 00:00: mg) by N18.32 00 oral route every OTHER day Vitamin D2 2020-03- No 1{capsu Q1W take 1 A ccess 1,250 mcg 04-02 le} capsule by [facility] (50,000 00:00: 00:00 oral route unit) 00 :00 every capsule week for 12 weeks Vitamin D2 2020-03- No 1{capsu Q1W take 1 A ccess 1,250 mcg 04-02 le} capsule by [facility] (50,000 00:00: 00:00 oral route unit) 00 :00 every capsule week for 12 weeks prednisone 2020-03 No take 2 [facility] 20 mg 1-03 tablet by Health tablet 00:00: oral route 00 every day x 5 days Levemir 2020-03 No 50U Q12H inject 50 [facility] FlexTouch 1-03 unit by Health U-100 00:00: subcutaneo Insulin 100 00 us route 2 unit/mL (3 times mL) every day subcutaneou s pen bumetanide 2020-03 No take 1 Acces s 1 mg tablet 1-03 tablet (1 [facility]a lt 00:00: mg) by 00 oral route 2 times per day metolazone 2020-03 No take 1 Acces s 5 mg tablet 1-03 tablet by a [facility] 00:00: oral route 00 every day gabapentin 2020-03 No 1{table Q8H take 1 Ac cess 800 mg 1-03 t} tablet by Health tablet 00:00: oral route 00 3 times every day clopidogrel 2020-03 No take 1 Acce ss 75 mg 1-03 tablet (75 Health tablet 00:00: mg) by 00 oral route once daily carvedilol 2020-03 No 1{table Q12H take 1 Ac cess 12.5 mg 1-03 t} tablet by Health tablet 00:00: oral route 00 2 times every day with food amlodipine 2020-03 No take 1 Acces s 5 mg tablet 1-03 tablet (5 [facility] 00:00: mg) by 00 oral route once daily isosorbide 2020-03 No take 1 Acces s mononitrate 1-03 tablet (60 [facility] alth ER 60 mg 00:00: mg) by tablet,exte 00 oral route nded once daily release 24 in the hr morning rosuvastati 2020-03 No 1{table Q1D take 1 A ccess n 40 mg 1-03 t} tablet by Health tablet 00:00: oral route 00 every day prednisone 2020-03 No take 2 Acces s 20 mg 1-03 tablet by Health tablet 00:00: oral route 00 every day x 5 days Levemir 2020-03 No 50U Q12H inject 50 Acces s FlexTouch 1-03 unit by [facility] U-100 00:00: subcutaneo Insulin 100 00 us route 2 unit/mL (3 times mL) every day subcutaneou s pen bumetanide 2020-03 No take 1 Acces s 1 mg tablet 1-03 tablet (1 [facility] 00:00: mg) by 00 oral route 2 times per day metolazone 2020-03 No take 1 Acces s 5 mg tablet 1-03 tablet by [facility] 00:00: oral route 00 every day gabapentin 2020-03 No 1{table Q8H take 1 Ac cess 800 mg 1-03 t} tablet by Health tablet 00:00: oral route 00 3 times every day clopidogrel 2020-03 No take 1 Acce ss 75 mg 1-03 tablet (75 Health tablet 00:00: mg) by 00 oral route once daily carvedilol 2020-03 No 1{table Q12H take 1 Ac cess 12.5 mg 1-03 t} tablet by Health tablet 00:00: oral route 00 2 times every day with food amlodipine 2020-03 No take 1 Acces s 5 mg tablet 1-03 tablet (5 [facility] 00:00: mg) by 00 oral route once daily isosorbide 2020-03 No take 1 Acces s mononitrate 1-03 tablet (60 [facility] ER 60 mg 00:00: mg) by tablet,exte 00 oral route nded once daily release 24 in the hr morning rosuvastati 2020-03 No 1{table Q1D take 1 A ccess n 40 mg 1-03 t} tablet by Health tablet 00:00: oral route 00 every day cyclobenzap 2021-0 No 1{table BID take 1 A ccess rine 5 mg 9-07 t} tablet by [facility]alt [facility] tablet 00:00: oral route 00 2 times every day as needed for low back pain cyclobenzap 2021-0 No 1{table BID take 1 A ccess rine 5 mg 9-07 t} tablet by [facility]alt [facility] tablet 00:00: oral route 00 2 times every day as needed for low back pain cyclobenzap 2021-0 No 1{table BID take 1 A ccess rine 5 mg 9-07 t} tablet by [facility]alt [facility] tablet 00:00: oral route 00 2 times every day as needed for low back pain cyclobenzap 2021-0 No 1{table BID take 1 A ccess rine 5 mg 9-07 t} tablet by [facility]alt [facility] tablet 00:00: oral route 00 2 times every day as needed for low back pain cyclobenzap 2021-0 No 1{table BID take 1 A ccess rine 5 mg 9-07 t} tablet by [facility] tablet 00:00: oral route 00 2 times every day as needed for low back pain cyclobenzap 2021-0 No 1{table BID take 1 A ccess rine 5 mg 9-07 t} tablet by [facility] tablet 00:00: oral route 00 2 times every day as needed for low back pain cyclobenzap 2021-0 No 1{table BID take 1 A ccess rine 5 mg 9-07 t} tablet by [facility]alt [facility] tablet 00:00: oral route 00 2 times every day as needed for low back pain cyclobenzap 2021-0 No 1{table BID take 1 A ccess rine 5 mg 9-07 t} tablet by [facility]alt [facility] tablet 00:00: oral route 00 2 times every day as needed for low back pain rosuvastati 2021-0 No 1{table Q1D take 1 A ccess n 40 mg 8-07 t} tablet by Health tablet 00:00: oral route 00 every day rosuvastati 2021-0 No 1{table Q1D take 1 A ccess n 40 mg 8-07 t} tablet by Health tablet 00:00: oral route 00 every day rosuvastati 2021-0 No 1{table Q1D take 1 A ccess n 40 mg 8-07 t} tablet by Health tablet 00:00: oral route 00 every day rosuvastati 2020-0 No 1{table Q1D take 1 A ccess n 40 mg 8-07 t} tablet by Health tablet 00:00: oral route 00 every day rosuvastati 2020-0 No 1{table Q1D take 1 A ccess n 40 mg 8-07 t} tablet by Health tablet 00:00: oral route 00 every day rosuvastati 2020-0 No 1{table Q1D take 1 A ccess n 40 mg 8-07 t} tablet by Health tablet 00:00: oral route 00 every day rosuvastati 2020-0 No 1{table Q1D take 1 A ccess n 40 mg 8-07 t} tablet by Health tablet 00:00: oral route 00 every day rosuvastati 2020-0 No 1{table Q1D take 1 A ccess n 40 mg 8-07 t} tablet by Health tablet 00:00: oral route 00 every day rosuvastati 2020-0 202- No 1{table Q1D take 1 Access n 40 mg 8-07 11-03 t} tablet by Health tablet 00:00: 00:00 oral route 00 :00 every day rosuvastati 2020-0 2021- No 1{table Q1D take 1 Access n 40 mg 8-07 11-03 t} tablet by Health tablet 00:00: 00:00 oral route 00 :00 every day Vitamin D2 2020-0 2021- No 1{capsu Q1W take 1 A ccess 1,250 mcg 8-07 10-29 le} capsule by [facility] (50,000 00:00: 00:00 oral route unit) 00 :00 every capsule week for 12 weeks Vitamin D2 2020-0 2021- No 1{capsu Q1W take 1 A ccess 1,250 mcg 8-07 10-29 le} capsule by [facility] (50,000 00:00: 00:00 oral route unit) 00 :00 every capsule week for 12 weeks Vitamin D2 2020-0 2021- No 1{capsu Q1W take 1 A ccess 1,250 mcg 8-07 10-29 le} capsule by [facility] (50,000 00:00: 00:00 oral route unit) 00 :00 every capsule week for 12 weeks Vitamin D2 2020- No 1{capsu Q1W take 1 A ccess 1,250 mcg 11-02 le} capsule by [facility] (50,000 00:00: 00:00 oral route unit) 00 :00 every capsule week for 12 weeks Vitamin D2 2020- No 1{capsu Q1W take 1 A ccess 1,250 mcg 11-02 le} capsule by [facility] (50,000 00:00: 00:00 oral route unit) 00 :00 every capsule week for 12 weeks Vitamin D2 2020- No 1{capsu Q1W take 1 A ccess 1,250 mcg 11-02 le} capsule by [facility] (50,000 00:00: 00:00 oral route unit) 00 :00 every capsule week for 12 weeks Vitamin D2 2020- No 1{capsu Q1W take 1 A ccess 1,250 mcg 11-02 le} capsule by [facility] (50,000 00:00: 00:00 oral route unit) 00 :00 every capsule week for 12 weeks Vitamin D2 2020- No 1{capsu Q1W take 1 A ccess 1,250 mcg 11-02 le} capsule by [facility] (50,000 00:00: 00:00 oral route unit) 00 :00 every capsule week for 12 weeks Vitamin D2 2020- No 1{capsu Q1W take 1 A ccess 1,250 mcg 11-02 le} capsule by [facility] (50,000 00:00: 00:00 oral route unit) 00 :00 every capsule week for 12 weeks Vitamin D2 2020- No 1{capsu Q1W take 1 A ccess 1,250 mcg 11-02 le} capsule by [facility] (50,000 00:00: 00:00 oral route unit) 00 :00 every capsule week for 12 weeks tramadol 50 No 1{table Q12H take 1 Dx: A ccess mg tablet 8-03 t} tablet by M79.671, [facility] 00:00: oral route M79.644, 00 every 12 M14.679, hours as E11.621, needed E11.40 amlodipine No take 1 Acces s 5 mg tablet 8-03 tablet (5 [facility] 00:00: mg) by 00 oral route once daily carvedilol No 1{table Q12H take 1 Ac cess 12.5 mg 8-03 t} tablet by [facility] tablet 00:00: oral route 00 2 times every day with food clopidogrel No take 1 Acce ss 75 mg 8-03 tablet (75 Health tablet 00:00: mg) by 00 oral route once daily isosorbide No take 1 Acces s mononitrate 8-03 tablet (60 [facility] ER 60 mg 00:00: mg) by tablet,exte 00 oral route nded once daily release 24 in the hr morning metolazone No take 1 Acces s 5 mg tablet 8-03 tablet by [facility] 00:00: oral route 00 every day bumetanide No take 1 Acces s 1 mg tablet 8-03 tablet (1 [facility] 00:00: mg) by 00 oral route 2 times per day gabapentin No 1{table Q8H take 1 Ac cess 800 mg 8-03 t} tablet by Health tablet 00:00: oral route 00 3 times every day tramadol 50 No 1{table Q12H take 1 Dx: A ccess mg tablet 8-03 t} tablet by M79.671, [facility]alth 00:00: oral route M79.644, 00 every 12 M14.679, hours as E11.621, needed E11.40 amlodipine No take 1 Acces s 5 mg tablet 8-03 tablet (5 [facility] 00:00: mg) by 00 oral route once daily carvedilol No 1{table Q12H take 1 Ac cess 12.5 mg 8-03 t} tablet by Health tablet 00:00: oral route 00 2 times every day with food clopidogrel No take 1 Acce ss 75 mg 8-03 tablet (75 Health tablet 00:00: mg) by 00 oral route once daily isosorbide No take 1 Acces s mononitrate 8-03 tablet (60 [facility]th ER 60 mg 00:00: mg) by tablet,exte 00 oral route nded once daily release 24 in the hr morning metolazone No take 1 Acces s 5 mg tablet 8-03 tablet by [facility] 00:00: oral route 00 every day bumetanide No take 1 Acces s 1 mg tablet 8-03 tablet (1 [facility] 00:00: mg) by 00 oral route 2 times per day gabapentin No 1{table Q8H take 1 Ac cess 800 mg 8-03 t} tablet by Health tablet 00:00: oral route 00 3 times every day tramadol 50 No 1{table Q12H take 1 Dx: A ccess mg tablet 8-03 t} tablet by M79.671, [facility] 00:00: oral route M79.644, 00 every 12 M14.679, hours as E11.621, needed E11.40 amlodipine No take 1 Acces s 5 mg tablet 8-03 tablet (5 [facility] 00:00: mg) by 00 oral route once daily carvedilol No 1{table Q12H take 1 Ac cess 12.5 mg 8-03 t} tablet by Health tablet 00:00: oral route 00 2 times every day with food clopidogrel No take 1 Acce ss 75 mg 8-03 tablet (75 Health tablet 00:00: mg) by 00 oral route once daily isosorbide No take 1 Acces s mononitrate 8-03 tablet (60 [facility]th ER 60 mg 00:00: mg) by tablet,exte 00 oral route nded once daily release 24 in the hr morning metolazone No take 1 Acces s 5 mg tablet 8-03 tablet by [facility] 00:00: oral route 00 every day bumetanide No take 1 Acces s 1 mg tablet 8-03 tablet (1 [facility] 00:00: mg) by 00 oral route 2 times per day gabapentin No 1{table Q8H take 1 Ac cess 800 mg 8-03 t} tablet by Health tablet 00:00: oral route 00 3 times every day tramadol 50 No 1{table Q12H take 1 Dx: A ccess mg tablet 8-03 t} tablet by M79.671, [facility] 00:00: oral route M79.644, 00 every 12 M14.679, hours as E11.621, needed E11.40 amlodipine No take 1 Acces s 5 mg tablet 8-03 tablet (5 [facility] 00:00: mg) by 00 oral route once daily carvedilol No 1{table Q12H take 1 Ac cess 12.5 mg 8-03 t} tablet by [facility] tablet 00:00: oral route 00 2 times every day with food clopidogrel No take 1 Acce ss 75 mg 8-03 tablet (75 Health tablet 00:00: mg) by 00 oral route once daily isosorbide No take 1 Acces s mononitrate 8-03 tablet (60 [facility] ER 60 mg 00:00: mg) by tablet,exte 00 oral route nded once daily release 24 in the hr morning metolazone No take 1 Acces s 5 mg tablet 8-03 tablet by [facility] 00:00: oral route 00 every day bumetanide No take 1 Acces s 1 mg tablet 8-03 tablet (1 [facility] 00:00: mg) by 00 oral route 2 times per day gabapentin No 1{table Q8H take 1 Ac cess 800 mg 8-03 t} tablet by [facility] tablet 00:00: oral route 00 3 times every day tramadol 50 No 1{table Q12H take 1 Dx: A ccess mg tablet 8-03 t} tablet by M79.671, [facility] 00:00: oral route M79.644, 00 every 12 M14.679, hours as E11.621, needed E11.40 amlodipine No take 1 Acces s 5 mg tablet 8-03 tablet (5 [facility] 00:00: mg) by 00 oral route once daily carvedilol No 1{table Q12H take 1 Ac cess 12.5 mg 8-03 t} tablet by [facility] tablet 00:00: oral route 00 2 times every day with food clopidogrel No take 1 Acce ss 75 mg 8-03 tablet (75 [facility] tablet 00:00: mg) by 00 oral route once daily isosorbide No take 1 Acces s mononitrate 8-03 tablet (60 [facility] ER 60 mg 00:00: mg) by tablet,exte 00 oral route nded once daily release 24 in the hr morning metolazone No take 1 Acces s 5 mg tablet 8-03 tablet by [facility] 00:00: oral route 00 every day bumetanide No take 1 Acces s 1 mg tablet 8-03 tablet (1 [facility] 00:00: mg) by 00 oral route 2 times per day gabapentin No 1{table Q8H take 1 Ac cess 800 mg 8-03 t} tablet by Health tablet 00:00: oral route 00 3 times every day tramadol 50 No 1{table Q12H take 1 Dx: A ccess mg tablet 8-03 t} tablet by M79.671, [facility] 00:00: oral route M79.644, 00 every 12 M14.679, hours as E11.621, needed E11.40 amlodipine No take 1 Acces s 5 mg tablet 8-03 tablet (5 [facility] 00:00: mg) by 00 oral route once daily carvedilol No 1{table Q12H take 1 Ac cess 12.5 mg 8-03 t} tablet by Health tablet 00:00: oral route 00 2 times every day with food clopidogrel No take 1 Acce ss 75 mg 8-03 tablet (75 [facility] tablet 00:00: mg) by 00 oral route once daily isosorbide No take 1 Acces s mononitrate 8-03 tablet (60 [facility] ER 60 mg 00:00: mg) by tablet,exte 00 oral route nded once daily release 24 in the hr morning metolazone No take 1 Acces s 5 mg tablet 8-03 tablet by [facility] 00:00: oral route 00 every day bumetanide No take 1 Acces s 1 mg tablet 8-03 tablet (1 [facility] 00:00: mg) by 00 oral route 2 times per day gabapentin No 1{table Q8H take 1 Ac cess 800 mg 8-03 t} tablet by Health tablet 00:00: oral route 00 3 times every day tramadol 50 0 No 1{table Q12H take 1 Dx: A ccess mg tablet 8-03 t} tablet by M79.671, [facility] 00:00: oral route M79.644, 00 every 12 M14.679, hours as E11.621, needed E11.40 amlodipine No take 1 Acces s 5 mg tablet 8-03 tablet (5 [facility] 00:00: mg) by 00 oral route once daily carvedilol No 1{table Q12H take 1 Ac cess 12.5 mg 8-03 t} tablet by Health tablet 00:00: oral route 00 2 times every day with food clopidogrel No take 1 Acce ss 75 mg 8-03 tablet (75 Health tablet 00:00: mg) by 00 oral route once daily isosorbide No take 1 Acces s mononitrate 8-03 tablet (60 [facility] ER 60 mg 00:00: mg) by tablet,exte 00 oral route nded once daily release 24 in the hr morning metolazone No take 1 Acces s 5 mg tablet 8-03 tablet by [facility] 00:00: oral route 00 every day bumetanide No take 1 Acces s 1 mg tablet 8-03 tablet (1 [facility] 00:00: mg) by 00 oral route 2 times per day gabapentin No 1{table Q8H take 1 Ac cess 800 mg 8-03 t} tablet by Health tablet 00:00: oral route 00 3 times every day tramadol 50 0 No 1{table Q12H take 1 Dx: A ccess mg tablet 8-03 t} tablet by M79.671, [facility] 00:00: oral route M79.644, 00 every 12 M14.679, hours as E11.621, needed E11.40 amlodipine No take 1 Acces s 5 mg tablet 8-03 tablet (5 [facility] 00:00: mg) by 00 oral route once daily carvedilol No 1{table Q12H take 1 Ac cess 12.5 mg 8- t} tablet by Health tablet 00:00: oral route 00 2 times every day with food clopidogrel No take 1 Acce ss 75 mg 8- tablet (75 Health tablet 00:00: mg) by 00 oral route once daily isosorbide No take 1 Acces s mononitrate 8- tablet (60 [facility] ER 60 mg 00:00: mg) by tablet,exte 00 oral route nded once daily release 24 in the hr morning metolazone No take 1 Acces s 5 mg tablet 10-29 tablet by [facility] 00:00: oral route 00 every day bumetanide No take 1 Acces s 1 mg tablet 10-29 tablet (1 [facility] 00:00: mg) by 00 oral route 2 times per day gabapentin No 1{table Q8H take 1 Ac cess 800 mg 10-29 t} tablet by Health tablet 00:00: oral route 00 3 times every day tramadol 50 0 No 1{table Q12H take 1 Dx: A ccess mg tablet -03 t} tablet by M79.671, [facility] 00:00: oral route M79.644, 00 every 12 M14.679, hours as E11.621, needed E11.40 tramadol 50 No 1{table Q12H take 1 Dx: A ccess mg tablet 8-03 t} tablet by M79.671, [facility] 00:00: oral route M79.644, 00 every 12 M14.679, hours as E11.621, needed E11.40 amlodipine 2020- No take 1 Acce ss 5 mg tablet 10-29 tablet (5 He alth 00:00: 00:00 mg) by 00 :00 oral route once daily carvedilol 0 202- No 1{table Q12H take 1 A ccess 12.5 mg -06 06- t} tablet by Health tablet 00:00: 00:00 oral route 00 :00 2 times every day with food clopidogrel 2020-2020- No take 1 Acc ess 75 mg 10-29 tablet (75 Health tablet 00:00: 00:00 mg) by 00 :00 oral route once daily isosorbide 2020- No take 1 Acce ss mononitrate 10-29 tablet (60 [facility]alth ER 60 mg 00:00: 00:00 mg) by tablet,exte 00 :00 oral route nded once daily release 24 in the hr morning metolazone 2020- No take 1 Acce ss 5 mg tablet 10-29 tablet by He alth 00:00: 00:00 oral route 00 :00 every day bumetanide 2020- No take 1 [facility] 1 mg tablet 10-29 tablet (1 [facility] 00:00: 00:00 mg) by 00 :00 oral route 2 times per day gabapentin 2020-2020- No 1{table Q8H take 1 A ccess 800 mg 10-29 t} tablet by [facility] tablet 00:00: 00:00 oral route 00 :00 3 times every day amlodipine 2020- No take 1 [facility] 5 mg tablet 10-29 tablet (5 [facility] 00:00: 00:00 mg) by 00 :00 oral route once daily carvedilol 2020- No 1{table Q12H take 1 A ccess 12.5 mg 10-29 t} tablet by Health tablet 00:00: 00:00 oral route 00 :00 2 times every day with food clopidogrel 2020- No take 1 [facility] 75 mg 10-29 tablet (75 Health tablet 00:00: 00:00 mg) by 00 :00 oral route once daily isosorbide 2020- No take 1 [facility] mononitrate 10-29 tablet (60 [facility] 60 mg 00:00: 00:00 mg) by tablet,exte 00 :00 oral route nded once daily release 24 in the hr morning metolazone 2020- No take 1 [facility] 5 mg tablet 10-29 tablet by [facility] 00:00: 00:00 oral route 00 :00 every day bumetanide 2020- No take 1 [facility] 1 mg tablet 10-29 tablet (1 [facility] 00:00: 00:00 mg) by 00 :00 oral route 2 times per day gabapentin 2020- No 1{table Q8H take 1 A ccess 800 mg 10-29 t} tablet by Health tablet 00:00: 00:00 oral route 00 :00 3 times every day Humalog 2020- No inject Access KwikPen 10-2914 5-10 Units [facility] (U-100) 00:00: 00:00 by Insulin 100 00 :00 Subcutaneo unit/mL us route 3 subcutaneou times per s day on a medium sliding scale three times a day before meals Humalog 2020- No inject [facility] KwikPen 10-29 5-10 Units [facility] (U-100) 00:00: 00:00 by Insulin 100 00 :00 Subcutaneo unit/mL us route 3 subcutaneou times per s day on a medium sliding scale three times a day before meals Humalog 2020- No inject [facility] KwikPen -06 04-14 5-10 Units [facility] (U-100) 00:00: 00:00 by Insulin 100 00 :00 Subcutaneo unit/mL us route 3 subcutaneou times per s day on a medium sliding scale three times a day before meals Humalog 2020- No inject [facility] KwikPen 10-29 5-10 Units [facility] (U-100) 00:00: 00:00 by Insulin 100 00 :00 Subcutaneo unit/mL us route 3 subcutaneou times per s day on a medium sliding scale three times a day before meals Humalog 2020- No inject [facility] KwikPen 10-29-14 5-10 Units [facility] (U-100) 00:00: 00:00 by Insulin 100 00 :00 Subcutaneo unit/mL us route 3 subcutaneou times per s day on a medium sliding scale three times a day before meals Humalog 2020- No inject [facility] KwikPen 8-06 04-14 5-10 Units [facility] (U-100) 00:00: 00:00 by Insulin 100 00 :00 Subcutaneo unit/mL us route 3 subcutaneou times per s day on a medium sliding scale three times a day before meals Humalog 2020- No inject [facility] KwikPen 8-06 04-14 5-10 Units [facility] (U-100) 00:00: 00:00 by Insulin 100 00 :00 Subcutaneo unit/mL us route 3 subcutaneou times per s day on a medium sliding scale three times a day before meals Humalog 2020- No inject [facility] KwikPen 8-06 04-14 5-10 Units [facility] (U-100) 00:00: 00:00 by Insulin 100 00 :00 Subcutaneo unit/mL us route 3 subcutaneou times per s day on a medium sliding scale three times a day before meals Humalog 2020- No inject Access KwikPen 8-06 04-14 5-10 Units [facility] (U-100) 00:00: 00:00 by Insulin 100 00 :00 Subcutaneo unit/mL us route 3 subcutaneou times per s day on a medium sliding scale three times a day before meals Humalog 2020- No inject Access KwikPen 8-06 04-14 5-10 Units [facility] (U-100) 00:00: 00:00 by Insulin 100 00 :00 Subcutaneo unit/mL us route 3 subcutaneou times per s day on a medium sliding scale three times a day before meals lisinopril 2020-2020- No 1{table Q1D take 1 A ccess 20 mg 10-29 t} tablet by Health tablet 00:00: 00:00 oral route 00 :00 every day lisinopril 2020-2020- No 1{table Q1D take 1 A ccess 20 mg 10-29 t} tablet by Health tablet 00:00: 00:00 oral route 00 :00 every day lisinopril 2020-2020- No 1{table Q1D take 1 A ccess 20 mg 8-03 09-05 t} tablet by [facility] tablet 00:00: 00:00 oral route 00 :00 every day lisinopril 2021-0 2021- No 1{table Q1D take 1 A ccess 20 mg 8-03 09-05 t} tablet by Health tablet 00:00: 00:00 oral route 00 :00 every day lisinopril 2021-0 2021- No 1{table Q1D take 1 A ccess 20 mg 8-03 09-05 t} tablet by Health tablet 00:00: 00:00 oral route 00 :00 every day lisinopril 2021-0 2021- No 1{table Q1D take 1 A ccess 20 mg 8-03 09-05 t} tablet by Health tablet 00:00: 00:00 oral route 00 :00 every day lisinopril 2021-0 2021- No 1{table Q1D take 1 A ccess 20 mg 8-03 09-05 t} tablet by Health tablet 00:00: 00:00 oral route 00 :00 every day lisinopril 2021-0 2021- No 1{table Q1D take 1 A ccess 20 mg 8-03 09-05 t} tablet by Health tablet 00:00: 00:00 oral route 00 :00 every day lisinopril 2021-0 2021- No 1{table Q1D take 1 A ccess 20 mg 8-03 09-05 t} tablet by Health tablet 00:00: 00:00 oral route 00 :00 every day lisinopril 2021-0 2021- No 1{table Q1D take 1 A ccess 20 mg 8-03 09-05 t} tablet by Health tablet 00:00: 00:00 oral route 00 :00 every day atorvastati 2021-0 2021- No take 1 [facility] n 80 mg -11-02 tablet by [facility] tablet 00:00: 00:00 Oral route 00 :00 1 time per day atorvastati 2020-0 2021- No take 1 [facility] 80 mg -11-02 tablet by Health tablet 00:00: 00:00 Oral route 00 :00 1 time per day atorvastati 1-0 2021- No take 1 [facility] 80 mg -11-02 tablet by Health tablet 00:00: 00:00 Oral route 00 :00 1 time per day atorvastati 2020-0 2020- No take 1 [facility] 80 mg 8-06 03- tablet by [facility] tablet 00:00: 00:00 Oral route 00 :00 1 time per day atorvastati 2020-0 2020- No take 1 [facility] 80 mg 8-06 03- tablet by [facility] tablet 00:00: 00:00 Oral route 00 :00 1 time per day atorvastati 2020-0 2020- No take 1 [facility] 80 mg 8-06 03- tablet by [facility] tablet 00:00: 00:00 Oral route 00 :00 1 time per day atorvastati 2020-0 2020- No take 1 [facility] 80 mg 811-02 tablet by Health tablet 00:00: 00:00 Oral route 00 :00 1 time per day atorvastati 2020-0 2020- No take 1 [facility] n 80 mg -06 03- tablet by [facility] tablet 00:00: 00:00 Oral route 00 :00 1 time per day atorvastati 2020-0 2020- No take 1 [facility] 80 mg 8- tablet by [facility] tablet 00:00: 00:00 Oral route 00 :00 1 time per day atorvastati 2020-0 2020- No take 1 [facility] 80 mg 8-06 03- tablet by [facility] tablet 00:00: 00:00 Oral route 00 :00 1 time per day carvedilol 2020-0 2020- No take 1 [facility] 25 mg 10-29- tablet (25 Health tablet 00:00: 00:00 mg) by 00 :00 oral route 2 times per day with food carvedilol 2020- No take 1 [facility] 25 mg 8-06 03- tablet (25 [facility] tablet 00:00: 00:00 mg) by 00 :00 oral route 2 times per day with food carvedilol 2020-2020- No take 1 [facility] 25 mg 8-06 03-03 tablet (25 [facility] tablet 00:00: 00:00 mg) by 00 :00 oral route 2 times per day with food carvedilol 2020- No take 1 [facility] 25 mg 8-06 03-03 tablet (25 [facility] tablet 00:00: 00:00 mg) by 00 :00 oral route 2 times per day with food carvedilol 2020-0 2020- No take 1 [facility] 25 mg 8-03 08-03 tablet (25 [facility] tablet 00:00: 00:00 mg) by 00 :00 oral route 2 times per day with food carvedilol 2020-0 2020- No take 1 [facility] 25 mg 8-06 03-03 tablet (25 [facility] tablet 00:00: 00:00 mg) by 00 :00 oral route 2 times per day with food carvedilol 2020-0 2020- No take 1 [facility] 25 mg 8-06 03-03 tablet (25 [facility] tablet 00:00: 00:00 mg) by 00 :00 oral route 2 times per day with food carvedilol 2020-0 2020- No take 1 [facility] 25 mg 8-06 03- tablet (25 [facility] tablet 00:00: 00:00 mg) by 00 :00 oral route 2 times per day with food carvedilol 2020-0 2020- No take 1 [facility] 25 mg 8-06 03-03 tablet (25 [facility] tablet 00:00: 00:00 mg) by 00 :00 oral route 2 times per day with food carvedilol 2020-2020- No take 1 [facility] 25 mg 8-06 03-03 tablet (25 [facility] tablet 00:00: 00:00 mg) by 00 :00 oral route 2 times per day with food carvedilol 2020-0 2020- No take 1 [facility] 25 mg 8-06 03-03 tablet (25 [facility] tablet 00:00: 00:00 mg) by 00 :00 oral route 2 times per day with food carvedilol 2020-0 2020- No take 1 [facility] 25 mg 8- 08-03 tablet (25 [facility] tablet 00:00: 00:00 mg) by 00 :00 oral route 2 times per day with food carvedilol 2020-0 2020- No take 1 [facility] 25 mg 8-03 08-03 tablet (25 [facility] tablet 00:00: 00:00 mg) by 00 :00 oral route 2 times per day with food carvedilol 2020-0 2020- No take 1 [facility] 25 mg 8-06 03-03 tablet (25 [facility] tablet 00:00: 00:00 mg) by 00 :00 oral route 2 times per day with food carvedilol 2020-2020- No take 1 [facility] 25 mg 8-06 03-03 tablet (25 [facility] tablet 00:00: 00:00 mg) by 00 :00 oral route 2 times per day with food carvedilol 2020-2020- No take 1 [facility] 25 mg 8-06 03-03 tablet (25 [facility] tablet 00:00: 00:00 mg) by 00 :00 oral route 2 times per day with food carvedilol 2020- No take 1 [facility] 25 mg 8- tablet (25 [facility] tablet 00:00: 00:00 mg) by 00 :00 oral route 2 times per day with food carvedilol 2020-2020- No take 1 [facility] 25 mg -06 03- tablet (25 Health tablet 00:00: 00:00 mg) by 00 :00 oral route 2 times per day with food carvedilol 2020-2020- No take 1 [facility] 25 mg -06 03- tablet (25 [facility] tablet 00:00: 00:00 mg) by 00 :00 oral route 2 times per day with food carvedilol 2020-2020- No take 1 [facility] 25 mg -06 03- tablet (25 [facility] tablet 00:00: 00:00 mg) by 00 :00 oral route 2 times per day with food atorvastati Yes 80mg QD Take [address] [facility] (LIPITOR) 7-04 by mouth [facility] - 80 MG 13:32: every Medical tablet 10 evening. Center isosorbide Yes Chronic 60mg QD Take [address] [facility] mononitrate 7-04 Stable by mouth Siddhartha kes - (IMDUR) 60 13:32: Angina daily. Med ical MG 24 hr 10 [facility] tablet acetaminoph 0 Yes 1000mg Take 1,[address] [facility] en 7-04 mg by [facility] - (TYLENOL) 13:32: mouth Medical 500 MG 10 every 8 Center tablet (eight) hours as needed for Pain. insulin Yes Inject [address] [facility] lispro 7-04 to 10 [facility] - (HUMALOG) 13:32: units Medical 100 unit/mL 10 subcutaneo Ce nter InPn usly three times daily per sliding scale; No sliding scale parameters available per doctor office . aspirin 81 Yes 81mg QD Take [address] [facility] chewable 7-04 by mouth [facility] - tablet 13:32: daily. [address] clopidogrel Yes 75mg QD Take [address] [facility] (PLAVIX) 75 7-04 by mouth [facility] - mg tablet 13:32: daily. Medica l 10 [place] bumetanide Yes 1mg Q.5D Take [address] [facility] [address] [facility] (BUMEX) 1 7-04 by mouth 2 [facility] - MG tablet 13:32: (two) Medical 10 times Center daily. carvediloL Yes 25mg Q.5D Take [address] (COREG) 25 7-04 by mouth 2 Lo [facility] - MG tablet 13:32: (two) Medical 10 times Center daily. aspirin 81 Yes 81mg Take [address] [facility] EC 7-04 by mouth. [facility] - tablet 13:32: Medical 10 [place] atorvastati Yes 80mg QD Take [address] [facility] (LIPITOR) 7-04 by mouth [facility] - 80 MG 13:32: every Medical tablet 10 evening. [place] isosorbide Yes Chronic 60mg QD Take [address] [facility] mononitrate 7-04 Stable by mouth Siddhartha kes - (IMDUR) 60 13:32: Angina daily. Med ical MG 24 hr 10 [facility] tablet acetaminoph Yes 1000mg Take 1,[address] [facility] en 7-04 mg by [facility] - (TYLENOL) 13:32: mouth Medical 500 MG 10 every 8 Center tablet (eight) hours as needed for Pain. insulin Yes Inject [address] [facility] lispro 7-04 to 10 [facility] - (HUMALOG) 13:32: units Medical 100 unit/mL 10 subcutaneo Ce nter InPn usly three times daily per sliding scale; No sliding scale parameters available per doctor office . aspirin 81 Yes 81mg QD Take [address] [facility] chewable 7-04 by mouth [facility] - tablet 13:32: daily. [address] clopidogrel Yes 75mg QD Take [address] [facility] (PLAVIX) 75 7-04 by mouth [facility] - mg tablet 13:32: daily. Medica l 10 [place] bumetanide Yes 1mg Q.5D Take [address] [facility] [address] [facility] (BUMEX) 1 7-04 by mouth 2 [facility] - MG tablet 13:32: (two) Medical 10 times Center daily. carvediloL Yes 25mg Q.5D Take [address] (COREG) 25 7-04 by mouth 2 Lo es - MG tablet 13:32: (two) Medical 10 times Center daily. aspirin 81 Yes 81mg Take [address] [facility] EC 7-04 by mouth. [facility] - tablet 13:32: [address] atorvastati Yes 80mg QD Take [address] [facility] (LIPITOR) 7-04 by mouth [facility] - 80 MG 13:32: every Medical tablet 10 evening. [place] isosorbide Yes Chronic 60mg QD Take [address] [facility] mononitrate 7-04 Stable by mouth Siddhartha kes - (IMDUR) 60 13:32: Angina daily. Med ical MG 24 hr 10 [facility] tablet acetaminoph Yes 1000mg Take 1,[address] [facility] en 7-04 mg by [facility] - (TYLENOL) 13:32: mouth Medical 500 MG 10 every 8 Center tablet (eight) hours as needed for Pain. insulin Yes Inject [address] [facility] lispro 7-04 to 10 [facility] - (HUMALOG) 13:32: units Medical 100 unit/mL 10 subcutaneo Ce nter InPn usly three times daily per sliding scale; No sliding scale parameters available per doctor office . aspirin 81 Yes 81mg QD Take [address] MG chewable 7-04 by mouth [facility] - tablet 13:32: daily. [address] clopidogrel Yes 75mg QD Take [address] [facility] (PLAVIX) 75 7-04 by mouth [facility] - mg tablet 13:32: daily. Medica l 10 [place] bumetanide Yes 1mg Q.5D Take [address] [facility] [address] [facility] (BUMEX) 1 7-04 by mouth 2 [facility] - MG tablet 13:32: (two) Medical 10 times Center daily. carvediloL Yes 25mg Q.5D Take [address] (COREG) 25 7-04 by mouth 2 Lo es - MG tablet 13:32: (two) Medical 10 times Center daily. aspirin 81 Yes 81mg Take [address] [facility] EC 7-04 by mouth. [facility] - tablet 13:32: Medical 10 [place] atorvastati Yes 80mg QD Take [address] [facility] (LIPITOR) 7-04 by mouth [facility] - 80 MG 13:32: every Medical tablet 10 evening. [place] isosorbide Yes Chronic 60mg QD Take [address] [facility] mononitrate 7-04 Stable by mouth Siddhartha kes - (IMDUR) 60 13:32: Angina daily. Med ical MG 24 hr 10 [facility] tablet acetaminoph Yes 1000mg Take 1,[address] [facility] en 7-04 mg by [facility] - (TYLENOL) 13:32: mouth Medical 500 MG 10 every 8 Center tablet (eight) hours as needed for Pain. insulin Yes Inject [address] [facility] lispro 7-04 to 10 [facility] - (HUMALOG) 13:32: units Medical 100 unit/mL 10 subcutaneo Ce nter InPn usly three times daily per sliding scale; No sliding scale parameters available per doctor office . aspirin 81 Yes 81mg QD Take [address] MG chewable 7-04 by mouth [facility] - tablet 13:32: daily. Medical 10 [place] clopidogrel Yes 75mg QD Take [address] [facility] (PLAVIX) 75 7-04 by mouth [facility] - mg tablet 13:32: daily. Medica l 10 [place] bumetanide Yes 1mg Q.5D Take [address] [facility] [address] [facility] (BUMEX) 1 7-04 by mouth 2 [facility] - MG tablet 13:32: (two) Medical 10 times Center daily. carvediloL Yes 25mg Q.5D Take [address] (COREG) 25 7-04 by mouth 2 Lo es - MG tablet 13:32: (two) Medical 10 times Center daily. aspirin 81 Yes 81mg Take [address] MG EC 7-04 by mouth. [facility] - tablet 13:32: Medical [address] [place] [address] atorvastati Yes 80mg QD Take [address] [facility] (LIPITOR) 7-04 by mouth [facility] - 80 MG 13:32: every Medical tablet 10 evening. Center isosorbide Yes Chronic 60mg QD Take [address] [facility] mononitrate 7-04 Stable by mouth Siddhartha kes - (IMDUR) 60 13:32: Angina daily. Med ical MG 24 hr 10 [facility] tablet acetaminoph Yes 1000mg Take 1,[address] [facility] en 7-04 mg by [facility] - (TYLENOL) 13:32: mouth Medical 500 MG 10 every 8 Center tablet (eight) hours as needed for Pain. insulin Yes Inject [address] [facility] lispro 7-04 to 10 [facility] - (HUMALOG) 13:32: units Medical 100 unit/mL 10 subcutaneo Ce nter InPn usly three times daily per sliding scale; No sliding scale parameters available per doctor office . aspirin 81 Yes 81mg QD Take [address] MG chewable 7-04 by mouth [facility] - tablet 13:32: daily. [address] clopidogrel Yes 75mg QD Take [address] [facility] (PLAVIX) 75 7-04 by mouth [facility] - mg tablet 13:32: daily. Medica l [address] [place] [address] bumetanide Yes 1mg Q.5D Take [address] [facility] [address] [facility] (BUMEX) 1 7-04 by mouth 2 [facility] - MG tablet 13:32: (two) Medical 10 times Center daily. carvediloL Yes 25mg Q.5D Take [address] (COREG) 25 7-04 by mouth 2 Lo es - MG tablet 13:32: (two) Medical 10 times Center daily. aspirin 81 2020-0 Yes 81mg Take [address] MG EC 7-04 by mouth. [facility] - tablet 13:32: [address] atorvastati Yes 80mg QD Take [address] [facility] (LIPITOR) 7-04 by mouth [facility] - 80 MG 13:32: every Medical tablet 10 evening. [place] isosorbide Yes Chronic 60mg QD Take [address] [facility] mononitrate 7-04 Stable by mouth Siddhartha kes - (IMDUR) 60 13:32: Angina daily. Med ical MG 24 hr 10 [facility] tablet acetaminoph Yes 1000mg Take 1,[address] [facility] en 7-04 mg by [facility] - (TYLENOL) 13:32: mouth Medical 500 MG 10 every 8 Center tablet (eight) hours as needed for Pain. insulin Yes Inject [address] [facility] lispro 7-04 to 10 [facility] - (HUMALOG) 13:32: units Medical 100 unit/mL 10 subcutaneo Ce nter InPn usly three times daily per sliding scale; No sliding scale parameters available per doctor office . aspirin 81 Yes 81mg QD Take [address] MG chewable 7-04 by mouth [facility] - tablet 13:32: daily. [address] clopidogrel Yes 75mg QD Take [address] [facility] (PLAVIX) 75 7-04 by mouth [facility] - mg tablet 13:32: daily. Medica l [address] [place] [address] bumetanide Yes 1mg Q.5D Take [address] [facility] [address] [facility] (BUMEX) 1 7-04 by mouth 2 [facility] - MG tablet 13:32: (two) Medical 10 times Center daily. carvediloL Yes 25mg Q.5D Take [address] (COREG) 25 7-04 by mouth 2 Lo es - MG tablet 13:32: (two) Medical 10 times Center daily. aspirin 81 Yes 81mg Take [address] MG EC 7-04 by mouth. [facility] - tablet 13:32: Medical 10 [place] atorvastati Yes 80mg QD Take [address] [facility] (LIPITOR) 7-04 by mouth [facility] - 80 MG 13:32: every Medical tablet 10 evening. [place] isosorbide Yes Chronic 60mg QD Take [address] [facility] mononitrate 7-04 Stable by mouth Siddhartha kes - (IMDUR) 60 13:32: Angina daily. Med ical MG 24 hr 10 [facility] tablet acetaminoph Yes 1000mg Take 1,[address] [facility] en 7-04 mg by [facility] - (TYLENOL) 13:32: mouth Medical 500 MG 10 every 8 Center tablet (eight) hours as needed for Pain. insulin Yes Inject [address] [facility] lispro 7-04 to 10 [facility] - (HUMALOG) 13:32: units Medical 100 unit/mL 10 subcutaneo Ce nter InPn usly three times daily per sliding scale; No sliding scale parameters available per doctor office . aspirin 81 Yes 81mg QD Take [address] MG chewable 7-04 by mouth [facility] - tablet 13:32: daily. [address] clopidogrel Yes 75mg QD Take [address] [facility] (PLAVIX) 75 7-04 by mouth [facility] - mg tablet 13:32: daily. Medica l 10 [place] bumetanide Yes 1mg Q.5D Take [address] [facility] [address] [facility] (BUMEX) 1 7-04 by mouth 2 [facility] - MG tablet 13:32: (two) Medical 10 times Center daily. carvediloL Yes 25mg Q.5D Take [address] (COREG) 25 7-04 by mouth 2 Lo es - MG tablet 13:32: (two) Medical 10 times Center daily. aspirin 81 Yes 81mg Take [address] MG EC 7-04 by mouth. [facility] - tablet 13:32: [facility] 10 [place] bisacodyL Yes 5mg Take [address] [facility] (DULCOLAX) 7-04 tablet (5 [facility] - 5 mg EC 00:00: mg total) Medic al tablet 00 by mouth Center daily as needed for Constipati on. HYDROcodone Yes 1{tbl} Take [address] [facility] [address] [facility] -acetaminop 7-04 tablet by Lo es - hen (NORCO 00:00: mouth Medica l 10-325) 00 every 8 Center 10-325 mg (eight) per tablet hours as needed for Pain. Max Daily Amount: 3 tablets bisacodyL Yes 5mg Take [address] [facility] (DULCOLAX) 7-04 tablet (5 [facility] - 5 mg EC 00:00: mg total) Medic al tablet 00 by mouth Center daily as needed for Constipati on. HYDROcodone 2021-0 Yes 1{tbl} Take [address] [facility] [address] [facility] -acetaminop 7-04 tablet by Lo es - hen (NORCO 00:00: mouth Medica l 10-325) 00 every 8 Center 10-325 mg (eight) per tablet hours as needed for Pain. Max Daily Amount: 3 tablets bisacodyL 2021-0 Yes 5mg Take [address] [facility] (DULCOLAX) 7-04 tablet (5 [facility] - 5 mg EC 00:00: mg total) Medic al tablet 00 by mouth Center daily as needed for Constipati on. HYDROcodone 2020-0 Yes 1{tbl} Take [address] [facility] [address] [facility] -acetaminop 7-04 tablet by Lo es - hen (NORCO 00:00: mouth Medica l 10-325) 00 every 8 Center 10-325 mg (eight) per tablet hours as needed for Pain. Max Daily Amount: 3 tablets bisacodyL 2021-0 Yes 5mg Take [address] [facility] (DULCOLAX) 7-04 tablet (5 [facility] - 5 mg EC 00:00: mg total) Medic al tablet 00 by mouth Center daily as needed for Constipati on. HYDROcodone 2020-0 Yes 1{tbl} Take [address] [facility] [address] [facility] -acetaminop 7-04 tablet by Lo es - hen (NORCO 00:00: mouth Medica l 10-325) 00 every 8 Center 10-325 mg (eight) per tablet hours as needed for Pain. Max Daily Amount: 3 tablets bisacodyL 2021-0 Yes 5mg Take [address] [facility] (DULCOLAX) 7-04 tablet (5 [facility] - 5 mg EC 00:00: mg total) Medic al tablet 00 by mouth Center daily as needed for Constipati on. HYDROcodone 2020-0 Yes 1{tbl} Take [address] [facility] [address] [facility] -acetaminop 7-04 tablet by Lo es - hen (NORCO 00:00: mouth Medica l 10-325) 00 every 8 Center 10-325 mg (eight) per tablet hours as needed for Pain. Max Daily Amount: 3 tablets bisacodyL 2021-0 Yes 5mg Take [address] [facility] (DULCOLAX) 7-04 tablet (5 [facility] - 5 mg EC 00:00: mg total) Medic al tablet 00 by mouth Center daily as needed for Constipati on. HYDROcodone Yes 1{tbl} Take [address] [facility] [address] [facility] -acetaminop 7-04 tablet by Lo es - hen (NORCO 00:00: mouth Medica l 10-325) 00 every 8 Center 10-325 mg (eight) per tablet hours as needed for Pain. Max Daily Amount: 3 tablets bisacodyL Yes 5mg Take [address] [facility] (DULCOLAX) 7-04 tablet (5 [facility] - 5 mg EC 00:00: mg total) Medic al tablet 00 by mouth Center daily as needed for Constipati on. HYDROcodone Yes 1{tbl} Take [address] [facility] [address] [facility] -acetaminop 7-04 tablet by Lo es - hen (NORCO 00:00: mouth Medica l 10-325) 00 every 8 Center 10-325 mg (eight) per tablet hours as needed for Pain. Max Daily Amount: 3 tablets amoxicillin 2020- No 1{tbl} Q.5D Take [address] -clavulanat 7-04 07-11 tablet by Siddhartha kes - e 00:00: 23:59 mouth 2 Medical (AUGMENTIN) 00 :00 (two) Center 875-125 mg times per tablet daily for 7 days. doxycycline 2020- No 100mg Q.5D Take [address] [facility] [address] [facility] (MONODOX) 7-04 07-11 [facility] - 100 MG 00:00: 23:59 (100 mg Medical capsule 00 :00 total) by Center mouth 2 (two) times daily for 7 days. amoxicillin 2020- No 1{tbl} Q.5D Take [address] -clavulanat 7-04 07-11 tablet by Siddhartha kes - e 00:00: 23:59 mouth 2 Medical (AUGMENTIN) 00 :00 (two) Center 875-125 mg times per tablet daily for 7 days. doxycycline 2020- No 100mg Q.5D Take [address] [facility] [address] [facility] (MONODOX) 7-04 07-11 [facility] - 100 MG 00:00: 23:59 (100 mg Medical capsule 00 :00 total) by Center mouth 2 (two) times daily for 7 days. amoxicillin 2020- No 1{tbl} Q.5D Take [address] -clavulanat 7- 07-11 tablet by Siddhartha kes - e 00:00: 23:59 mouth 2 Medical (AUGMENTIN) 00 :00 (two) Center 875-125 mg times per tablet daily for 7 days. doxycycline 2020-2020- No 100mg Q.5D Take [address] [facility] [address] [facility] (MONODOX) 7-04 07-11 [facility] - 100 MG 00:00: 23:59 (100 mg Medical capsule 00 :00 total) by Center mouth 2 (two) times daily for 7 days. amoxicillin 2020- No 1{tbl} Q.5D Take [address] -clavulanat 7-04 07-11 tablet by Siddhartha kes - e 00:00: 23:59 mouth 2 Medical (AUGMENTIN) 00 :00 (two) Center 875-125 mg times per tablet daily for 7 days. doxycycline 2020- No 100mg Q.5D Take [address] [facility] [address] [facility] (MONODOX) 7- 07-11 [facility] - 100 MG 00:00: 23:59 (100 mg Medical capsule 00 :00 total) by Center mouth 2 (two) times daily for 7 days. amoxicillin 2020- No 1{tbl} Q.5D Take [address] -clavulanat 7- 07-11 tablet by Siddhartha kes - e 00:00: 23:59 mouth 2 Medical (AUGMENTIN) 00 :00 (two) Center 875-125 mg times per tablet daily for 7 days. doxycycline 2020- No 100mg Q.5D Take [address] [facility] [address] [facility] (MONODOX) 7- 07-11 [facility] - 100 MG 00:00: 23:59 (100 mg Medical capsule 00 :00 total) by Center mouth 2 (two) times daily for 7 days. amoxicillin 2020- No 1{tbl} Q.5D Take [address] -clavulanat 7-04 07-11 tablet by Siddhartha kes - e 00:00: 23:59 mouth 2 Medical (AUGMENTIN) 00 :00 (two) Center 875-125 mg times per tablet daily for 7 days. doxycycline 2020- No 100mg Q.5D Take [address] [facility] [address] [facility] (MONODOX) 7-04 07-11 [facility] - 100 MG 00:00: 23:59 (100 mg Medical capsule 00 :00 total) by Center mouth 2 (two) times daily for 7 days. amoxicillin 2020- No 1{tbl} Q.5D Take [address] -clavulanat 7-07 03-11 tablet by Siddhartha kes - e 00:00: 23:59 mouth 2 Medical (AUGMENTIN) 00 :00 (two) Center 875-125 mg times per tablet daily for 7 days. doxycycline 2020- No 100mg Q.5D Take [address] [facility] [address] [facility] (MONODOX) -07 03-11 [facility] - 100 MG 00:00: 23:59 (100 mg Medical capsule 00 :00 total) by Center mouth 2 (two) times daily for 7 days. amoxicillin 2020- No 1{tbl} Take [address] -clavulanat 7-07 03- tablet by Siddhartha kes - e 00:00: 00:00 mouth Medical (AUGMENTIN) 00 :00 every 12 Cent er 875-125 mg (twelve) per tablet hours for 7 days. doxycycline 2020- No 100mg Take [address] [facility] [address] [facility] (MONODOX) 7-07 03- capsule [facility] - 100 MG 00:00: 00:00 (100 mg Medical capsule 00 :00 total) by Center mouth every 12 (twelve) hours for 7 days. amoxicillin 2020- No 1{tbl} Take [address] [facility] -clavulanat -07 03-04 tablet by Siddhartha iQiyis - e 00:00: 00:00 [facility] (AUGMENTIN) 00 :00 every 12 [facility] 875-125 mg (twelve) per tablet hours for 7 days. doxycycline 2020- No 100mg Take [address] [facility] [address] [facility] (MONODOX) 7-07 03-04 [facility] - 100 MG 00:00: 00:00 (100 mg Medical capsule 00 :00 total) by [facility] mouth every 12 (twelve) hours for 7 days. amoxicillin 2020- No 1{tbl} Take [address] [facility] -clavulanat 7- 07-04 tablet by Siddhartha kes - e 00:00: 00:00 [facility] (AUGMENTIN) 00 :00 [facility] 12 [facility] 875-125 mg (twelve) per tablet hours for 7 days. doxycycline 2020-2020- No 100mg Take [address] [facility] [address] [facility] (MONODOX) 7-04 07-04 [facility] - 100 MG 00:00: 00:00 (100 mg Medical capsule 00 :00 total) by Center mouth every 12 (twelve) hours for 7 days. amoxicillin 2020-2020- No 1{tbl} Take [address] -clavulanat 7-04 07-04 tablet by Siddhartha kes - e 00:00: 00:00 [facility] (AUGMENTIN) 00 :00 [facility] 12 [facility] 875-125 mg (twelve) per tablet hours for 7 days. doxycycline 2020-2020- No 100mg Take [address] [facility] [address] [facility] (MONODOX) 7-04 07-04 [facility] - 100 MG 00:00: 00:00 (100 mg Medical capsule 00 :00 total) by Center mouth every 12 (twelve) hours for 7 days. amoxicillin 2020-2020- No 1{tbl} Take [address] -clavulanat 7- 07-04 tablet by Siddhartha kes - e 00:00: 00:00 [facility] (AUGMENTIN) 00 :00 [facility] 12 [facility] 875-125 mg (twelve) per tablet hours for 7 days. doxycycline 2020-2020- No 100mg Take [address] [facility] [address] [facility] (MONODOX) 7-04 07-04 [facility] - 100 MG 00:00: 00:00 (100 mg Medical capsule 00 :00 total) by Center mouth every 12 (twelve) hours for 7 days. amoxicillin 2020-2020- No 1{tbl} Take [address] -clavulanat 7-04 07-04 tablet by Siddhartha kes - e 00:00: 00:00 [facility] (AUGMENTIN) 00 :00 [facility] 12 [facility] 875-125 mg (twelve) per tablet hours for 7 days. doxycycline 2020-2020- No 100mg Take [address] [facility] [address] [facility] (MONODOX) 7-04 07-04 [facility] - 100 MG 00:00: 00:00 (100 mg Medical capsule 00 :00 total) by Center mouth every 12 (twelve) hours for 7 days. amoxicillin 2020-2020- No 1{tbl} Take [address] -clavulanat 7-04 07-04 tablet by Siddhartha kes - e 00:00: 00:00 [facility] (AUGMENTIN) 00 :00 [facility] 12 [facility] 875-125 mg (twelve) per tablet hours for 7 days. doxycycline No 100mg Take [address] [facility] [address] [facility] (MONODOX) 09-29 07- [facility] - 100 MG 00:00: 00:00 (100 mg Medical capsule 00 :00 total) by Center mouth every 12 (twelve) hours for 7 days. Levemir No 50U Q12H inject 50 [facility]es [facility] FlexTouch 6-22 unit by [place] [employer] 00:00: subcutaneo Insulin 100 00 us route 2 unit/mL (3 times mL) every day subcutaneou s pen Levemir No 50U Q12H inject 50 Acces s FlexTouch 6-22 unit by [employer] 00:00: subcutaneo Insulin 100 00 us route 2 unit/mL (3 times mL) every day subcutaneou s pen Levemir No 50U Q12H inject 50 Acces s FlexTouch 6-22 unit by [employer] 00:00: subcutaneo Insulin 100 00 us route 2 unit/mL (3 times mL) every day subcutaneou s pen Levemir No 50U Q12H inject 50 Acces s FlexTouch 6-22 unit by [place] [employer] 00:00: subcutaneo Insulin 100 00 us route 2 unit/mL (3 times mL) every day subcutaneou s pen Levemir 0 No 50U Q12H inject 50 Acces s FlexTouch 6-22 unit by [place] [employer] 00:00: subcutaneo Insulin 100 00 us route 2 unit/mL (3 times mL) every day subcutaneou s pen Levemir 0 No 50U Q12H inject 50 Acces s FlexTouch 6-22 unit by [place] [employer] 00:00: subcutaneo Insulin 100 00 us route 2 unit/mL (3 times mL) every day subcutaneou s pen Levemir 0 No 50U Q12H inject 50 Acces s FlexTouch 6-22 unit by [place] [employer] 00:00: subcutaneo Insulin 100 00 us route 2 unit/mL (3 times mL) every day subcutaneou s pen Levemir No 50U Q12H inject 50 Acces s FlexTouch - unit by [place] U-100 00:00: subcutaneo Insulin 100 00 us route 2 unit/mL (3 times mL) every day subcutaneou s pen Levemir No 50U Q12H inject 50 Acce ss FlexTouch 09-17 unit by [place] U-100 00:00: 00:00 subcutaneo Insulin 100 00 :00 us route 2 unit/mL (3 times mL) every day subcutaneou s pen Levemir No 50U Q12H inject 50 Ac[facility] ss FlexTouch 09-17 unit by [place] U-100 00:00: 00:00 subcutaneo Insulin 100 00 :00 us route 2 unit/mL (3 times mL) every day subcutaneou s pen metolazone 2020- No take 1 [facility] 5 mg tablet 09-17 tablet by [facility] jose 00:00: 00:00 oral route 00 :00 every day Januvia 50 2020- No 1{table Q1D take 1 A ccess mg tablet 09-17 t} tablet by [facility] 00:00: 00:00 oral route 00 :00 every day acetaminoph 2020- No 1{table Q8H take 1 Dx: Access en 300 09-17 t} tablet by [email or web address] l[facility] mg-codeine 00:00: 00:00 oral route M14.679, 60 mg 00 :00 every 8 E11.621, tablet hours as E11.40 needed Humalog 2020- No inject Access KwikPen 09-17 5-10 Units [facility] (U-100) 00:00: 00:00 by Insulin 100 00 :00 Subcutaneo unit/mL us route 3 subcutaneou times per s day on a medium sliding scale three times a day before meals metolazone 2020- No take 1 Acce ss 5 mg tablet 6-22 08-03 tablet by Will garcia 00:00: 00:00 oral route 00 :00 every day Januvia 50 2020- No 1{table Q1D take 1 A ccess mg tablet 09-17 t} tablet by [facility] 00:00: 00:00 oral route 00 :00 every day acetaminoph 2020- No 1{table Q8H take 1 Dx: Access en 300 09-17 t} tablet by Dominique Laird [facility] mg-codeine 00:00: 00:00 oral route M14.679, 60 mg 00 :00 every 8 E11.621, tablet hours as E11.40 needed Humalog 2020- No inject Access KwikPen 09-17 5-10 Units [facility]alt [facility] (U-100) 00:00: 00:00 by Insulin 100 00 :00 Subcutaneo unit/mL us route 3 subcutaneou times per s day on a medium sliding scale three times a day before meals metolazone 2020- No take 1 Acce ss 5 mg tablet 09-17 tablet by Will garcia 00:00: 00:00 oral route 00 :00 every day Januvia 50 2020- No 1{table Q1D take 1 A ccess mg tablet 09-17 t} tablet by [facility] 00:00: 00:00 oral route 00 :00 every day acetaminoph 2020- No 1{table Q8H take 1 Dx: Access en 300 09-17 t} tablet by Dominique Laird [facility] mg-codeine 00:00: 00:00 oral route M14.679, 60 mg 00 :00 every 8 E11.621, tablet hours as E11.40 needed Humalog 2020- No inject Access KwikPen 09-17 5-10 Units [facility]alt [facility] (U-100) 00:00: 00:00 by Insulin 100 00 :00 Subcutaneo unit/mL us route 3 subcutaneou times per s day on a medium sliding scale three times a day before meals metolazone 2020- No take 1 Acce ss 5 mg tablet 09-17 tablet by Will garcia 00:00: 00:00 oral route 00 :00 every day Januvia 50 2020- No 1{table Q1D take 1 A ccess mg tablet 09-17 t} tablet by [facility] 00:00: 00:00 oral route 00 :00 every day acetaminoph 2020- No 1{table Q8H take 1 Dx: Access en 300 09-17 t} tablet by Dominique Laird [facility] mg-codeine 00:00: 00:00 oral route M14.679, 60 mg 00 :00 every 8 E11.621, tablet hours as E11.40 needed Humalog 2020- No inject Access KwikPen 09-17 5-10 Units [facility] (U-100) 00:00: 00:00 by Insulin 100 00 :00 Subcutaneo unit/mL us route 3 subcutaneou times per s day on a medium sliding scale three times a day before meals metolazone 2020- No take 1 Acce ss 5 mg tablet 09-17 tablet by Will garcia 00:00: 00:00 oral route 00 :00 every day Januvia 50 2020- No 1{table Q1D take 1 A ccess mg tablet 09-17 t} tablet by [facility] 00:00: 00:00 oral route 00 :00 every day acetaminoph 2020- No 1{table Q8H take 1 Dx: Access en 300 09-17 t} tablet by Dominique Laird [facility] mg-codeine 00:00: 00:00 oral route M14.679, 60 mg 00 :00 every 8 E11.621, tablet hours as E11.40 needed Humalog 2020- No inject Access KwikPen 09-17 5-10 Units [facility] (U-100) 00:00: 00:00 by Insulin 100 00 :00 Subcutaneo unit/mL us route 3 subcutaneou times per s day on a medium sliding scale three times a day before meals metolazone 2020- No take 1 Acce ss 5 mg tablet 09-17 tablet by Will garcia 00:00: 00:00 oral route 00 :00 every day Januvia 50 2020- No 1{table Q1D take 1 A ccess mg tablet 09-17 t} tablet by [facility] 00:00: 00:00 oral route 00 :00 every day acetaminoph 2020- No 1{table Q8H take 1 Dx: Access en 300 09-17 t} tablet by Dominique Laird [facility] mg-codeine 00:00: 00:00 oral route M14.679, 60 mg 00 :00 every 8 E11.621, tablet hours as E11.40 needed Humalog 2020- No inject Access KwikPen 09-17 5-10 Units [facility] (U-100) 00:00: 00:00 by Insulin 100 00 :00 Subcutaneo unit/mL us route 3 subcutaneou times per s day on a medium sliding scale three times a day before meals metolazone 2020- No take 1 Acce ss 5 mg tablet 09-17 tablet by o[facility]se 00:00: 00:00 oral route 00 :00 every day Januvia 50 2020- No 1{table Q1D take 1 A ccess mg tablet 09-17 t} tablet by [facility] 00:00: 00:00 oral route 00 :00 every day acetaminoph 2020- No 1{table Q8H take 1 Dx: Access en 300 09-17 t} tablet by Dominique Laird [facility] mg-codeine 00:00: 00:00 oral route M14.679, 60 mg 00 :00 every 8 E11.621, tablet hours as E11.40 needed Humalog 2020- No inject Access KwikPen 09-17 5-10 Units [facility] (U-100) 00:00: 00:00 by Insulin 100 00 :00 Subcutaneo unit/mL us route 3 subcutaneou times per s day on a medium sliding scale three times a day before meals metolazone 2020- No take 1 Acce ss 5 mg tablet 09-17 tablet by jose 00:00: 00:00 oral route 00 :00 every day Januvia 50 2020- No 1{table Q1D take 1 A ccess mg tablet 09-17 t} tablet by [facility] 00:00: 00:00 oral route 00 :00 every day acetaminoph 2020- No 1{table Q8H take 1 Dx: Access en 300 09-17 t} tablet by Dominique Laird [facility] mg-codeine 00:00: 00:00 oral route M14.679, 60 mg 00 :00 every 8 E11.621, tablet hours as E11.40 needed Humalog 2020- No inject Access KwikPen 09-17 5-10 Units [facility] (U-100) 00:00: 00:00 by Insulin 100 00 :00 Subcutaneo unit/mL us route 3 subcutaneou times per s day on a medium sliding scale three times a day before meals metolazone 2020- No take 1 Acce ss 5 mg tablet 09-17 tablet by [facility] 00:00: 00:00 oral route 00 :00 every day Januvia 50 2020- No 1{table Q1D take 1 A ccess mg tablet 09-17 t} tablet by [facility] 00:00: 00:00 oral route 00 :00 every day acetaminoph 2020- No 1{table Q8H take 1 Dx: Access en 300 09-17 t} tablet by Dominique Laird [facility] mg-codeine 00:00: 00:00 oral route M14.679, 60 mg 00 :00 every 8 E11.621, tablet hours as E11.40 needed Humalog 2020- No inject Access KwikPen 09-17 5-10 Units [facility] (U-100) 00:00: 00:00 by Insulin 100 00 :00 Subcutaneo unit/mL us route 3 subcutaneou times per s day on a medium sliding scale three times a day before meals metolazone 2020- No take 1 Acce ss 5 mg tablet 09-17 tablet by [facility] jose 00:00: 00:00 oral route 00 :00 every day Alia 50 2020- No 1{table Q1D take 1 A ccess mg tablet 09-17- t} tablet by [facility] 00:00: 00:00 oral route 00 :00 every day acetaminoph 2020- No 1{table Q8H take 1 Dx: Access en 300 09-17 t} tablet by [id number], Dominique [facility] mg-codeine 00:00: 00:00 oral route M14.679, 60 mg 00 :00 every 8 E11.621, tablet hours as E11.40 needed Humalog 2020- No inject Access KwikPen 09-17 5-10 Units [facility] (U-100) 00:00: 00:00 by Insulin 100 00 :00 Subcutaneo unit/mL us route 3 subcutaneou times per s day on a medium sliding scale three times a day before meals lisinopril 0 2020- No 1{table Q1D take 1 A ccess 20 mg 6-22 07-25 t} tablet by [facility] tablet 00:00: 00:00 oral route 00 :00 every day lisinopril 2020-0 202- No 1{table Q1D take 1 A ccess 20 mg 6-22 07-25 t} tablet by [facility] tablet 00:00: 00:00 oral route 00 :00 every day lisinopril 2020-0 2020- No 1{table Q1D take 1 A ccess 20 mg 6-22 07-25 t} tablet by Health tablet 00:00: 00:00 oral route 00 :00 every day lisinopril 2020-0 202- No 1{table Q1D take 1 A ccess 20 mg 6-22 07-25 t} tablet by Health tablet 00:00: 00:00 oral route 00 :00 every day lisinopril 2020-0 202- No 1{table Q1D take 1 A ccess 20 mg 6-22 07-25 t} tablet by Health tablet 00:00: 00:00 oral route 00 :00 every day lisinopril 2020-0 2020- No 1{table Q1D take 1 A ccess 20 mg 6-22 07-25 t} tablet by Health tablet 00:00: 00:00 oral route 00 :00 every day lisinopril 2021-0 2021- No 1{table Q1D take 1 A ccess 20 mg 6-22 07-25 t} tablet by Health tablet 00:00: 00:00 oral route 00 :00 every day lisinopril 2021-0 2021- No 1{table Q1D take 1 A ccess 20 mg 6-22 07-25 t} tablet by Health tablet 00:00: 00:00 oral route 00 :00 every day lisinopril 2021-0 2021- No 1{table Q1D take 1 A ccess 20 mg 6-22 07-25 t} tablet by Health tablet 00:00: 00:00 oral route 00 :00 every day lisinopril 2021-0 2021- No 1{table Q1D take 1 A ccess 20 mg 6-22 07-25 t} tablet by Health tablet 00:00: 00:00 oral route 00 :00 every day Januvia 100 2021-0 2021- No 1{table Q1D take 1 Access mg tablet 5-24 06-22 t} tablet by [facility] 00:00: 00:00 oral route 00 :00 every day Januvia 100 2021-0 2021- No 1{table Q1D take 1 Access mg tablet 5-24 06-22 t} tablet by [facility] 00:00: 00:00 oral route 00 :00 every day Januvia 100 2021-0 2021- No 1{table Q1D take 1 Access mg tablet 5-24 06-22 t} tablet by [facility] 00:00: 00:00 oral route 00 :00 every day Januvia 100 2021-0 2021- No 1{table Q1D take 1 Access mg tablet 5-24 06-22 t} tablet by [facility] 00:00: 00:00 oral route 00 :00 every day Januvia 100 2021-0 2021- No 1{table Q1D take 1 Access mg tablet 5-24 06-22 t} tablet by [facility] 00:00: 00:00 oral route 00 :00 every day Januvia 100 2021-0 2021- No 1{table Q1D take 1 Access mg tablet 5-24 06-22 t} tablet by [facility] 00:00: 00:00 oral route 00 :00 every day Joseia 100 2020-0 2021- No 1{table Q1D take 1 Access mg tablet 5-24 -22 t} tablet by [facility] 00:00: 00:00 oral route 00 :00 every day Joseia 100 2020-0 2021- No 1{table Q1D take 1 Access mg tablet 5-24 -22 t} tablet by [facility] 00:00: 00:00 oral route 00 :00 every day Joseia 100 2020-0 2021- No 1{table Q1D take 1 Access mg tablet 5-24 -22 t} tablet by [facility] 00:00: 00:00 oral route 00 :00 every day Joseia 100 2020-0 2020- No 1{table Q1D take 1 Access mg tablet 524 - t} tablet by [facility] 00:00: 00:00 oral route 00 :00 every day Santyl 250 2020-0 No Q1D apply by Acc ess unit/gram 5-20 topical Health topical 00:00: route ointment 00 every day to cleansed affected area Santyl 250 2020-0 No Q1D apply by Acc ess unit/gram 5-20 topical Health topical 00:00: route ointment 00 every day to cleansed affected area Santyl 250 2020-0 No Q1D apply by Acc ess unit/gram 5-20 topical Health topical 00:00: route ointment 00 every day to cleansed affected area Santyl 250 2020-0 No Q1D apply by Acc ess unit/gram 5-20 topical Health topical 00:00: route ointment 00 every day to cleansed affected area Santyl 250 2020-0 No Q1D apply by Acc ess unit/gram 5-20 topical Health topical 00:00: route ointment 00 every day to cleansed affected area Santyl 250 2020-0 No Q1D apply by Acc ess unit/gram 5-20 topical Health topical 00:00: route ointment 00 every day to cleansed affected area Santyl 250 2020-0 No Q1D apply by Acc ess unit/gram 5-20 topical Health topical 00:00: route ointment 00 every day to cleansed affected area Santyl 250 2020-0 No Q1D apply by Acc ess unit/gram 5-20 topical Health topical 00:00: route ointment 00 every day to cleansed affected area Santyl 250 2020-0 No Q1D apply by Acc ess unit/gram 5-20 topical Health topical 00:00: route ointment 00 every day to cleansed affected area Santyl 250 2020-0 No Q1D apply by Acc ess unit/gram 5-20 topical Health topical 00:00: route ointment 00 every day to cleansed affected area isosorbide 2020- No take 1 Acce ss mononitrate 5-20 08-03 tablet (60 [facility] ealth ER 60 mg 00:00: 00:00 mg) by tablet,exte 00 :00 oral route nded once daily release 24 in the hr morning gabapentin 2020-2020- No 1{table Q8H take 1 A ccess 800 mg 5-20 -03 t} tablet by Health tablet 00:00: 00:00 oral route 00 :00 3 times every day clopidogrel 2020-2020- No take 1 Acc ess 75 mg 5-20 -03 tablet (75 Health tablet 00:00: 00:00 mg) by 00 :00 oral route once daily carvedilol 2020- No take 1 Acce ss 25 mg 5-20 -03 tablet (25 Health tablet 00:00: 00:00 mg) by 00 :00 oral route 2 times per day with food bumetanide 2020- No take 1 Acce ss 1 mg tablet 5-20 -03 tablet (1 He alth 00:00: 00:00 mg) by 00 :00 oral route 2 times per day atorvastati 2020- No take 1 Acc ess n 80 mg 5-20 -03 tablet by Health tablet 00:00: 00:00 Oral route 00 :00 1 time per day amlodipine 2020- No take 1 Acce ss 5 mg tablet 5-20 -03 tablet (5 He alth 00:00: 00:00 mg) by 00 :00 oral route once daily isosorbide 2020- No take 1 Acce ss mononitrate 5-20 08-03 tablet (60 H [facility]alth ER 60 mg 00:00: 00:00 mg) by tablet,exte 00 :00 oral route nded once daily release 24 in the hr morning gabapentin 2020- No 1{table Q8H take 1 A ccess 800 mg 5-20 - t} tablet by Health tablet 00:00: 00:00 oral route 00 :00 3 times every day clopidogrel 2020-2020- No take 1 Acc ess 75 mg 5-20 -03 tablet (75 Health tablet 00:00: 00:00 mg) by 00 :00 oral route once daily carvedilol 2020- No take 1 Acce ss 25 mg 5-20 - tablet (25 Health tablet 00:00: 00:00 mg) by 00 :00 oral route 2 times per day with food bumetanide 2020- No take 1 Acce ss 1 mg tablet -20 - tablet (1 He alth 00:00: 00:00 mg) by 00 :00 oral route 2 times per day atorvastati 2020- No take 1 Acc ess n 80 mg -15 11- tablet by Health tablet 00:00: 00:00 Oral route 00 :00 1 time per day amlodipine 2020- No take 1 Acce ss 5 mg tablet 08-15- tablet (5 He alth 00:00: 00:00 mg) by 00 :00 oral route once daily isosorbide 2020- No take 1 Acce ss mononitrate 5-20 - tablet (60 [facility]alth ER 60 mg 00:00: 00:00 mg) by tablet,exte 00 :00 oral route nded once daily release 24 in the hr morning gabapentin 2020- No 1{table Q8H take 1 A ccess 800 mg 5-20 -03 t} tablet by Health tablet 00:00: 00:00 oral route 00 :00 3 times every day clopidogrel 2020- No take 1 Acc ess 75 mg 5-20 -03 tablet (75 Health tablet 00:00: 00:00 mg) by 00 :00 oral route once daily carvedilol 2020- No take 1 Acce ss 25 mg 5-20 -03 tablet (25 Health tablet 00:00: 00:00 mg) by 00 :00 oral route 2 times per day with food bumetanide 2020- No take 1 Acce ss 1 mg tablet -20 - tablet (1 He alth 00:00: 00:00 mg) by 00 :00 oral route 2 times per day atorvastati 2020-2020- No take 1 Acc ess n 80 mg 5-20 - tablet by Health tablet 00:00: 00:00 Oral route 00 :00 1 time per day amlodipine 2020-2020- No take 1 Acce ss 5 mg tablet -20 - tablet (5 He alth 00:00: 00:00 mg) by 00 :00 oral route once daily isosorbide 2020- No take 1 Acce ss mononitrate 5-20 - tablet (60 [facility]alth ER 60 mg 00:00: 00:00 mg) by tablet,exte 00 :00 oral route nded once daily release 24 in the hr morning gabapentin 2020- No 1{table Q8H take 1 A ccess 800 mg -15 11- t} tablet by Health tablet 00:00: 00:00 oral route 00 :00 3 times every day clopidogrel 2020-2020- No take 1 Acc ess 75 mg 5-20 - tablet (75 Health tablet 00:00: 00:00 mg) by 00 :00 oral route once daily carvedilol 2020- No take 1 Acce ss 25 mg 5-20 - tablet (25 Health tablet 00:00: 00:00 mg) by 00 :00 oral route 2 times per day with food bumetanide 2020- No take 1 Acce ss 1 mg tablet -20 - tablet (1 He alth 00:00: 00:00 mg) by 00 :00 oral route 2 times per day atorvastati 2020-2020- No take 1 Acc ess n 80 mg 5-20 - tablet by Health tablet 00:00: 00:00 Oral route 00 :00 1 time per day amlodipine 2020-2020- No take 1 Acce ss 5 mg tablet 5-20 - tablet (5 He alth 00:00: 00:00 mg) by 00 :00 oral route once daily isosorbide 2020-2020- No take 1 Acce ss mononitrate 5-20 08-03 tablet (60 [facility]alth ER 60 mg 00:00: 00:00 mg) by tablet,exte 00 :00 oral route nded once daily release 24 in the hr morning gabapentin 2020-2020- No 1{table Q8H take 1 A ccess 800 mg 5-20 08-03 t} tablet by Health tablet 00:00: 00:00 oral route 00 :00 3 times every day clopidogrel 2020-2020- No take 1 Acc ess 75 mg 5-20 -03 tablet (75 Health tablet 00:00: 00:00 mg) by 00 :00 oral route once daily carvedilol 2020- No take 1 Acce ss 25 mg 5-20 - tablet (25 Health tablet 00:00: 00:00 mg) by 00 :00 oral route 2 times per day with food bumetanide 2020- No take 1 Acce ss 1 mg tablet -15 11- tablet (1 He alth 00:00: 00:00 mg) by 00 :00 oral route 2 times per day atorvastati 2020- No take 1 Acc ess n 80 mg 5-20 - tablet by Health tablet 00:00: 00:00 Oral route 00 :00 1 time per day amlodipine 2020-2020- No take 1 Acce ss 5 mg tablet -20 -03 tablet (5 He alth 00:00: 00:00 mg) by 00 :00 oral route once daily isosorbide 2020- No take 1 Acce ss mononitrate 5-20 -03 tablet (60 [facility]alth ER 60 mg 00:00: 00:00 mg) by tablet,exte 00 :00 oral route nded once daily release 24 in the hr morning gabapentin 2020- No 1{table Q8H take 1 A ccess 800 mg 5-20 08-03 t} tablet by Health tablet 00:00: 00:00 oral route 00 :00 3 times every day clopidogrel 2020-2020- No take 1 Acc ess 75 mg 5-20 08-03 tablet (75 Health tablet 00:00: 00:00 mg) by 00 :00 oral route once daily carvedilol 2020- No take 1 Acce ss 25 mg 5-20 -03 tablet (25 Health tablet 00:00: 00:00 mg) by 00 :00 oral route 2 times per day with food bumetanide 2020- No take 1 Acce ss 1 mg tablet 5-20 - tablet (1 He alth 00:00: 00:00 mg) by 00 :00 oral route 2 times per day atorvastati 2020- No take 1 Acc ess n 80 mg 5-20 - tablet by Health tablet 00:00: 00:00 Oral route 00 :00 1 time per day amlodipine 2020- No take 1 Acce ss 5 mg tablet 5-20 - tablet (5 He alth 00:00: 00:00 mg) by 00 :00 oral route once daily isosorbide 2020- No take 1 Acce ss mononitrate 5-20 - tablet (60 [facility]alth ER 60 mg 00:00: 00:00 mg) by tablet,exte 00 :00 oral route nded once daily release 24 in the hr morning gabapentin 2020- No 1{table Q8H take 1 A ccess 800 mg 5-20 - t} tablet by Health tablet 00:00: 00:00 oral route 00 :00 3 times every day clopidogrel 2020-2020- No take 1 Acc ess 75 mg 5-20 - tablet (75 Health tablet 00:00: 00:00 mg) by 00 :00 oral route once daily carvedilol 2020- No take 1 Acce ss 25 mg 5-20 -03 tablet (25 Health tablet 00:00: 00:00 mg) by 00 :00 oral route 2 times per day with food bumetanide 2020- No take 1 Acce ss 1 mg tablet 5-20 - tablet (1 He alth 00:00: 00:00 mg) by 00 :00 oral route 2 times per day atorvastati 2020- No take 1 Acc ess n 80 mg 5-20 - tablet by Health tablet 00:00: 00:00 Oral route 00 :00 1 time per day amlodipine 2020-2020- No take 1 Acce ss 5 mg tablet -20 -03 tablet (5 He alth 00:00: 00:00 mg) by 00 :00 oral route once daily isosorbide 2020- No take 1 Acce ss mononitrate 5-20 -03 tablet (60 [facility] ER 60 mg 00:00: 00:00 mg) by tablet,exte 00 :00 oral route nded once daily release 24 in the hr morning gabapentin 2020- No 1{table Q8H take 1 A ccess 800 mg 5-20 - t} tablet by Health tablet 00:00: 00:00 oral route 00 :00 3 times every day clopidogrel 2020-2020- No take 1 Acc ess 75 mg 5-20 - tablet (75 Health tablet 00:00: 00:00 mg) by 00 :00 oral route once daily carvedilol 2020- No take 1 Acce ss 25 mg -20 - tablet (25 Health tablet 00:00: 00:00 mg) by 00 :00 oral route 2 times per day with food bumetanide 2020- No take 1 Acce ss 1 mg tablet -20 - tablet (1 He alth 00:00: 00:00 mg) by 00 :00 oral route 2 times per day atorvastati 2020-2020- No take 1 Acc ess n 80 mg -20 - tablet by Health tablet 00:00: 00:00 Oral route 00 :00 1 time per day amlodipine 2020-2020- No take 1 Acce ss 5 mg tablet 5-20 - tablet (5 He alth 00:00: 00:00 mg) by 00 :00 oral route once daily isosorbide 2020-2020- No take 1 Acce ss mononitrate 5-20 -03 tablet (60 [facility] ER 60 mg 00:00: 00:00 mg) by tablet,exte 00 :00 oral route nded once daily release 24 in the hr morning gabapentin 2020-2020- No 1{table Q8H take 1 A ccess 800 mg 5-20 -03 t} tablet by Health tablet 00:00: 00:00 oral route 00 :00 3 times every day clopidogrel 2020-2020- No take 1 Acc ess 75 mg 5-20 -03 tablet (75 Health tablet 00:00: 00:00 mg) by 00 :00 oral route once daily carvedilol 2020-2020- No take 1 Acce ss 25 mg 5-20 -03 tablet (25 Health tablet 00:00: 00:00 mg) by 00 :00 oral route 2 times per day with food bumetanide 2020- No take 1 Acce ss 1 mg tablet -20 - tablet (1 He alth 00:00: 00:00 mg) by 00 :00 oral route 2 times per day atorvastati 2020- No take 1 Acc ess n 80 mg 5-20 - tablet by Health tablet 00:00: 00:00 Oral route 00 :00 1 time per day amlodipine 2020-2020- No take 1 Acce ss 5 mg tablet -15 11- tablet (5 He alth 00:00: 00:00 mg) by 00 :00 oral route once daily isosorbide 2020- No take 1 Acce ss mononitrate 5-20 - tablet (60 [facility]alth ER 60 mg 00:00: 00:00 mg) by tablet,exte 00 :00 oral route nded once daily release 24 in the hr morning gabapentin 2020-2020- No 1{table Q8H take 1 A ccess 800 mg 5-20 - t} tablet by [facility] tablet 00:00: 00:00 oral route 00 :00 3 times every day clopidogrel 2020-2020- No take 1 Acc ess 75 mg 5-20 -03 tablet (75 [facility] tablet 00:00: 00:00 mg) by 00 :00 oral route once daily carvedilol 2020- No take 1 Acce ss 25 mg 5-20 -03 tablet (25 [facility] tablet 00:00: 00:00 mg) by 00 :00 oral route 2 times per day with food bumetanide 2020- No take 1 Acce ss 1 mg tablet 5-20 -03 tablet (1 [facility] 00:00: 00:00 mg) by 00 :00 oral route 2 times per day atorvastati 2020- No take 1 Acc ess n 80 mg -20 10-29 tablet by [facility] tablet 00:00: 00:00 Oral route 00 :00 1 time per day amlodipine 2020- No take 1 Acce ss 5 mg tablet -10-29 tablet (5 [facility] al[facility] 00:00: 00:00 mg) by 00 :00 oral route once daily Levemir 2020- No 100U Q1D inject 100 Acc ess FlexTouch 5-20 -22 unit by [employer] 00:00: 00:00 subcutaneo Insulin 100 00 :00 us route unit/mL (3 every day mL) subcutaneou s pen metolazone 2020- No 1{table Q2D take 1 A ccess 5 mg tablet 5-20 - t} tablet by [facility] 00:00: 00:00 oral route 00 :00 every 2 days lisinopril 2020- No 1{table Q1D take 1 A ccess 20 mg 5-20 -22 t} tablet by [facility] tablet 00:00: 00:00 oral route 00 :00 every day Levemir 2020-2020- No 100U Q1D inject 100 Acc ess FlexTouch 5-20 - unit by [employer] 00:00: 00:00 subcutaneo Insulin 100 00 :00 us route unit/mL (3 every day mL) subcutaneou s pen metolazone 2020- No 1{table Q2D take 1 A ccess 5 mg tablet 5-20 -22 t} tablet by [facility] 00:00: 00:00 oral route 00 :00 every 2 days lisinopril 2020- No 1{table Q1D take 1 A ccess 20 mg 5-20 -22 t} tablet by [facility] tablet 00:00: 00:00 oral route 00 :00 every day Levemir 2020-2020- No 100U Q1D inject 100 Acc ess FlexTouch 5-20 -22 unit by [employer] 00:00: 00:00 subcutaneo Insulin 100 00 :00 us route unit/mL (3 every day mL) subcutaneou s pen metolazone 2020-0 2020- No 1{table Q2D take 1 A ccess 5 mg tablet 5-20 06-22 t} tablet by [facility] 00:00: 00:00 oral route 00 :00 every 2 days lisinopril 2020-0 2020- No 1{table Q1D take 1 A ccess 20 mg 5-20 06-22 t} tablet by [facility] tablet 00:00: 00:00 oral route 00 :00 every day Levemir 2020-0 2020- No 100U Q1D inject 100 Acc ess FlexTouch 5-20 06-22 unit by [employer] 00:00: 00:00 subcutaneo Insulin 100 00 :00 us route unit/mL (3 every [facility]2020- No 1{table Q2D take 1 A ccess 5 mg tablet 5-20 06-22 t} tablet by [facility] 00:00: 00:00 oral route 00 :00 every 2 days lisinopril 2020-0 2020- No 1{table Q1D take 1 A ccess 20 mg 5-20 06-22 t} tablet by [facility] tablet 00:00: 00:00 oral route 00 :00 every day Levemir 2020-0 1- No 100U Q1D inject 100 Acc ess FlexTouch 5-20 06-22 unit by [employer] 00:00: 00:00 subcutaneo Insulin 100 00 :00 us route unit/mL (3 every day mL) [facility]-2020- No 1{table Q2D take 1 A ccess 5 mg tablet 5-20 06-22 t} tablet by [facility] 00:00: 00:00 oral route 00 :00 every 2 days lisinopril 2020-0 2020- No 1{table Q1D take 1 A ccess 20 mg 5-20 06-22 t} tablet by [facility] tablet 00:00: 00:00 oral route 00 :00 every day Levemir 2020-0 1- No 100U Q1D inject 100 Acc ess FlexTouch 5-20 06-22 unit by [employer] 00:00: 00:00 subcutaneo Insulin 100 00 :00 us route unit/mL (3 every day [facility] 2020-2020- No 1{table Q2D take 1 A ccess 5 mg tablet 5-20 06-22 t} tablet by [facility] 00:00: 00:00 oral route 00 :00 every 2 days lisinopril 2020-0 2020- No 1{table Q1D take 1 A ccess 20 mg 5-20 06-22 t} tablet by [facility] tablet 00:00: 00:00 oral route 00 :00 every day Levemir 2020-0 2020- No 100U Q1D inject 100 Acc ess FlexTouch 5-20 06-22 unit by [place] [employer] 00:00: 00:00 subcutaneo Insulin 100 00 :00 us route unit/mL (3 every day mL) [facility] metolazone 2020-2020- No 1{table Q2D take 1 A ccess 5 mg tablet 5-20 06-22 t} tablet by [facility] 00:00: 00:00 oral route 00 :00 every 2 days lisinopril 2020-0 2020- No 1{table Q1D take 1 A ccess 20 mg 5-20 06-22 t} tablet by [facility] tablet 00:00: 00:00 oral route 00 :00 every day Levemir 2020-0 2020- No 100U Q1D inject 100 Acc ess FlexTouch 5-20 06-22 unit by [place] [employer] 00:00: 00:00 subcutaneo Insulin 100 00 :00 us route unit/mL (3 every day mL[facility] 2020- No 1{table Q2D take 1 A ccess 5 mg tablet 5-20 06-22 t} tablet by [facility] 00:00: 00:00 oral route 00 :00 every 2 days lisinopril 2020-0 2020- No 1{table Q1D take 1 A ccess 20 mg 5-20 06-22 t} tablet by [facility] tablet 00:00: 00:00 oral route 00 :00 every day Levemir 2020-0 2020- No 100U Q1D inject 100 Acc ess FlexTouch 5-20 06-22 unit by [facility] U-100 00:00: 00:00 subcutaneo Insulin 100 00 :00 us route unit/mL (3 every day mL) subcutaneou s pen metolazone 2020- No 1{table Q2D take 1 A ccess 5 mg tablet 5-20 06-22 t} tablet by [facility] 00:00: 00:00 oral route 00 :00 every 2 days lisinopril 2020- No 1{table Q1D take 1 A ccess 20 mg 5-20 06-22 t} tablet by [facility] tablet 00:00: 00:00 oral route 00 :00 every day Levemir 2020- No 100U Q1D inject 100 Acc ess FlexTouch 5-20 06-22 unit by [facility] U-100 00:00: 00:00 subcutaneo Insulin 100 00 :00 us route unit/mL (3 every day mL) subcutaneou s pen metolazone 2020- No 1{table Q2D take 1 A ccess 5 mg tablet 5-20 06-22 t} tablet by [facility] 00:00: 00:00 oral route 00 :00 every 2 days lisinopril 2020- No 1{table Q1D take 1 A ccess 20 mg 5-20 06-22 t} tablet by [facility] tablet 00:00: 00:00 oral route 00 :00 every day Levemir 2020- No inject 50 Acce ss FlexTouch 5-20 05-20 Units by [facility] U-100 00:00: 00:00 Subcutaneo Insulin 100 00 :00 us route 2 unit/mL (3 times per mL) day in the subcutaneou morning s pen and evening Levemir 2020- No inject 50 Acce ss FlexTouch 5-20 05-20 Units by [facility] 00:00: 00:00 Subcutaneo Insulin 100 00 :00 us route 2 unit/mL (3 times per mL) day in the subcutaneou morning s pen and evening Levemir 2020- No inject 50 Acce ss FlexTouch 5-20 05-20 Units by [facility] 00:00: 00:00 Subcutaneo Insulin 100 00 :00 us route 2 unit/mL (3 times per mL) day in the subcutaneou morning s pen and evening Levemir 2020- No inject 50 Acce ss FlexTouch 5-20 05-20 Units by [facility] 00:00: 00:00 Subcutaneo Insulin 100 00 :00 us route 2 unit/mL (3 times per mL) day in the subcutaneou morning s pen and evening Levemir 2020- No inject 50 Acce ss FlexTouch 5-20 05-20 Units by [facility] 00:00: 00:00 Subcutaneo Insulin 100 00 :00 us route 2 unit/mL (3 times per mL) day in the subcutaneou morning s pen and evening Levemir 2020- No inject 50 Acce ss FlexTouch 5-20 05-20 Units by [facility]-100 00:00: 00:00 Subcutaneo Insulin 100 00 :00 us route 2 unit/mL (3 times per mL) day in the subcutaneou morning s pen and evening Levemir 2020- No inject 50 Acce ss FlexTouch 5-20 05-20 Units by [facility]-100 00:00: 00:00 Subcutaneo Insulin 100 00 :00 us route 2 unit/mL (3 times per mL) day in the subcutaneou morning s pen and evening Levemir 2020- No inject 50 Acce ss FlexTouch 5-20 05-20 Units by [facility]-100 00:00: 00:00 Subcutaneo Insulin 100 00 :00 us route 2 unit/mL (3 times per mL) day in the subcutaneou morning s pen and evening Levemir 2020- No inject 50 Acce ss FlexTouch 5-20 05-20 Units by [facility] U-[facility] 00:00: 00:00 Subcutaneo Insulin 100 00 :00 us route 2 unit/mL (3 times per mL) day in the subcutaneou morning s pen and evening Levemir 2020- No inject 50 Acce ss FlexTouch 5-20 05-20 Units by [facility]-100 00:00: 00:00 Subcutaneo Insulin 100 00 :00 us route 2 unit/mL (3 times per mL) day in the subcutaneou morning s pen and evening Levemir 2020- No inject 50 Acce ss FlexTouch 5-20 05-20 Units by [facility] 00:00: 00:00 Subcutaneo Insulin 100 00 :00 us route 2 unit/mL (3 times per mL) day in the subcutaneou morning s pen and evening Levemir 2020- No inject 50 Acce ss FlexTouch 5-20 05-20 Units by [facility]-100 00:00: 00:00 Subcutaneo Insulin 100 00 :00 us route 2 unit/mL (3 times per mL) day in the subcutaneou morning s pen and evening Levemir 2020- No inject 50 Acce ss FlexTouch 5-20 05-20 Units by [facility]-100 00:00: 00:00 Subcutaneo Insulin 100 00 :00 us route 2 unit/mL (3 times per mL) day in the subcutaneou morning s pen and evening Levemir 2020- No inject 50 Acce ss FlexTouch 5-20 05-20 Units by [facility] 00:00: 00:00 Subcutaneo Insulin 100 00 :00 us route 2 unit/mL (3 times per mL) day in the subcutaneou morning s pen and evening Levemir 2020- No inject 50 Acce ss FlexTouch 5-20 05-20 Units by [facility]-100 00:00: 00:00 Subcutaneo Insulin 100 00 :00 us route 2 unit/mL (3 times per mL) day in the subcutaneou morning s pen and evening Levemir 2020- No inject 50 Acce ss FlexTouch 5-20 05-20 Units by [facility] 00:00: 00:00 Subcutaneo Insulin 100 00 :00 us route 2 unit/mL (3 times per mL) day in the subcutaneou morning s pen and evening Levemir 2020- No inject 50 Acce ss FlexTouch 5-20 05-20 Units by [facility] 00:00: 00:00 Subcutaneo Insulin 100 00 :00 us route 2 unit/mL (3 times per mL) day in the subcutaneou morning s pen and evening Levemir 2020- No inject 50 Acce ss FlexTouch 5-20 05-20 Units by [facility] 00:00: 00:00 Subcutaneo Insulin 100 00 :00 us route 2 unit/mL (3 times per mL) day in the subcutaneou morning s pen and evening Levemir 2020- No inject 50 Acce ss FlexTouch 5-20 05-20 Units by [facility] 00:00: 00:00 Subcutaneo Insulin 100 00 :00 us route 2 unit/mL (3 times per mL) day in the subcutaneou morning s pen and evening Levemir 2020- No inject 50 Acce ss FlexTouch 5-20 05-20 Units by [facility] 00:00: 00:00 Subcutaneo Insulin 100 00 :00 us route 2 unit/mL (3 times per mL) day in the subcutaneou morning s pen and evening gabapentin 2020- No 1{table Q8H take 1 A ccess 800 mg - 05-20 t} tablet by [facility] tablet 00:00: 00:00 oral route 00 :00 3 times every day carvedilol 2020- No take 1 Acce ss 25 mg - 05-20 tablet (25 [facility] tablet 00:00: 00:00 mg) by 00 :00 oral route 2 times per day with food clopidogrel 2020- No take 1 Acc ess 75 mg 4-08 05-20 tablet (75 [facility] tablet 00:00: 00:00 mg) by 00 :00 oral route once daily atorvastati 2020- No take 1 Acc ess n 80 mg 4-08 05-20 tablet by [facility] tablet 00:00: 00:00 Oral route 00 :00 1 time per day amlodipine 2020- No take 1 Acce ss 5 mg tablet 07-04 05-20 tablet (5 [facility] 00:00: 00:00 mg) by 00 :00 oral route once daily isosorbide 2020- No take 1 Acce ss mononitrate 07-04 05-20 tablet (60 [facility] 60 mg 00:00: 00:00 mg) by tablet,exte 00 :00 oral route nded once daily release 24 in the hr morning Humalog 2020- No inject Access K[employer]Pen - 05-20 5-10 Units [facility] (U-100) 00:00: 00:00 by Insulin 100 00 :00 Subcutaneo unit/mL us route 3 subcutaneou times per s day on a sliding scale three times a day before meals Levemir 2020- No inject 50 Acce ss FlexTouch - 05-20 Units by [facility] 00:00: 00:00 Subcutaneo Insulin 100 00 :00 us route 2 unit/mL (3 times per mL) day in the subcutaneou morning s pen and evening metolazone 2020- No 1{table Q2D take 1 A ccess 2.5 mg 07-04 05-20 t} tablet by [facility] tablet 00:00: 00:00 oral route 00 :00 every 2 days gabapentin 2020- No 1{table Q8H take 1 A ccess 800 mg 4-08 05-20 t} tablet by [facility] tablet 00:00: 00:00 oral route 00 :00 3 times every day carvedilol 2020- No take 1 Acce ss 25 mg - 05-20 tablet (25 [facility] tablet 00:00: 00:00 mg) by 00 :00 oral route 2 times per day with food clopidogrel 2020- No take 1 Acc ess 75 mg - 05-20 tablet (75 [facility] tablet 00:00: 00:00 mg) by 00 :00 oral route once daily atorvastati 2020- No take 1 Acc ess n 80 mg 4- 05-20 tablet by [facility] tablet 00:00: 00:00 Oral route 00 :00 1 time per day amlodipine 2020- No take 1 Acce ss 5 mg tablet 07-04 05-20 tablet (5 [facility] 00:00: 00:00 mg) by 00 :00 oral route once daily isosorbide 2020- No take 1 Acce ss mononitrate 07-04 05-20 tablet (60 [facility] 60 mg 00:00: 00:00 mg) by tablet,exte 00 :00 oral route nded once daily release 24 in the hr morning Humalog 2020- No inject [employer]Pen - 05-20 5-10 Units [facility] (U-100) 00:00: 00:00 by Insulin 100 00 :00 Subcutaneo unit/mL us route 3 subcutaneou times per s day on a sliding scale three times a day before meals Levemir 2020- No inject 50 Acce ss FlexTouch - 05-20 Units by [facility] 00:00: 00:00 Subcutaneo Insulin 100 00 :00 us route 2 unit/mL (3 times per mL) day in the subcutaneou morning s pen and evening metolazone 2020- No 1{table Q2D take 1 A ccess 2.5 mg 07-04 05-20 t} tablet by [facility] tablet 00:00: 00:00 oral route 00 :00 every 2 days gabapentin 2020- No 1{table Q8H take 1 A ccess 800 mg 4-08 05-20 t} tablet by [facility] tablet 00:00: 00:00 oral route 00 :00 3 times every day carvedilol 2020- No take 1 Acce ss 25 mg - 05-20 tablet (25 [facility] tablet 00:00: 00:00 mg) by 00 :00 oral route 2 times per day with food clopidogrel 2020- No take 1 Acc ess 75 mg - 05-20 tablet (75 [facility] tablet 00:00: 00:00 mg) by 00 :00 oral route once daily atorvastati 2020- No take 1 Acc ess n 80 mg 4- 05-20 tablet by [facility] tablet 00:00: 00:00 Oral route 00 :00 1 time per day amlodipine 2020- No take 1 Acce ss 5 mg tablet 07-04 05-20 tablet (5 [facility] 00:00: 00:00 mg) by 00 :00 oral route once daily isosorbide 2020- No take 1 Acce ss mononitrate 07-04 05-20 tablet (60 [facility] 60 mg 00:00: 00:00 mg) by tablet,exte 00 :00 oral route nded once daily release 24 in the hr morning Humalog 2020- No inject [employer] - 05-20 5-10 Units [facility] (U-100) 00:00: 00:00 by Insulin 100 00 :00 Subcutaneo unit/mL us route 3 subcutaneou times per s day on a sliding scale three times a day before meals Levemir 2020- No inject 50 Acce ss FlexTouch - 05-20 Units by [facility]-100 00:00: 00:00 Subcutaneo Insulin 100 00 :00 us route 2 unit/mL (3 times per mL) day in the subcutaneou morning s pen and evening metolazone 2020- No 1{table Q2D take 1 A ccess 2.5 mg 07-04 05-20 t} tablet by [facility] tablet 00:00: 00:00 oral route 00 :00 every 2 days gabapentin 2020- No 1{table Q8H take 1 A ccess 800 mg 4-08 05-20 t} tablet by [facility] tablet 00:00: 00:00 oral route 00 :00 3 times every day carvedilol 2020- No take 1 Acce ss 25 mg - 05-20 tablet (25 [facility] tablet 00:00: 00:00 mg) by 00 :00 oral route 2 times per day with food clopidogrel 2020- No take 1 Acc ess 75 mg - 05-20 tablet (75 [facility] tablet 00:00: 00:00 mg) by 00 :00 oral route once daily atorvastati 2020- No take 1 Acc ess n 80 mg 4- 05-20 tablet by [facility] tablet 00:00: 00:00 Oral route 00 :00 1 time per day amlodipine 2020- No take 1 Acce ss 5 mg tablet 07-04 05-20 tablet (5 [facility] 00:00: 00:00 mg) by 00 :00 oral route once daily isosorbide 2020- No take 1 Acce ss mononitrate 07-04 05-20 tablet (60 [facility] 60 mg 00:00: 00:00 mg) by tablet,exte 00 :00 oral route nded once daily release 24 in the hr morning Humalog 2020- No inject [employer] - 05-20 5-10 Units [facility] (U-100) 00:00: 00:00 by Insulin 100 00 :00 Subcutaneo unit/mL us route 3 subcutaneou times per s day on a sliding scale three times a day before meals Levemir 2020- No inject 50 Acce ss FlexTouch - 05-20 Units by [facility]-100 00:00: 00:00 Subcutaneo Insulin 100 00 :00 us route 2 unit/mL (3 times per mL) day in the subcutaneou morning s pen and evening metolazone 2020- No 1{table Q2D take 1 A ccess 2.5 mg 07-04 05-20 t} tablet by [facility] tablet 00:00: 00:00 oral route 00 :00 every 2 days gabapentin 2020- No 1{table Q8H take 1 A ccess 800 mg 4-08 05-20 t} tablet by [facility] tablet 00:00: 00:00 oral route 00 :00 3 times every day carvedilol 2020- No take 1 Acce ss 25 mg - 05-20 tablet (25 [facility] tablet 00:00: 00:00 mg) by 00 :00 oral route 2 times per day with food clopidogrel 2020- No take 1 Acc ess 75 mg - 05-20 tablet (75 [facility] tablet 00:00: 00:00 mg) by 00 :00 oral route once daily atorvastati 2020- No take 1 Acc ess n 80 mg 4- 05-20 tablet by [facility] tablet 00:00: 00:00 Oral route 00 :00 1 time per day amlodipine 2020- No take 1 Acce ss 5 mg tablet 07-04 05-20 tablet (5 [facility] 00:00: 00:00 mg) by 00 :00 oral route once daily isosorbide 2020- No take 1 Acce ss mononitrate 07-04 05-20 tablet (60 [facility] 60 mg 00:00: 00:00 mg) by tablet,exte 00 :00 oral route nded once daily release 24 in the hr morning Humalog 2020- No inject [employer]Pen - 05-20 5-10 Units [facility] (U-100) 00:00: 00:00 by Insulin 100 00 :00 Subcutaneo unit/mL us route 3 subcutaneou times per s day on a sliding scale three times a day before meals Levemir 2020- No inject 50 Acce ss FlexTouch - 05-20 Units by [facility] 00:00: 00:00 Subcutaneo Insulin 100 00 :00 us route 2 unit/mL (3 times per mL) day in the subcutaneou morning s pen and evening metolazone 2020- No 1{table Q2D take 1 A ccess 2.5 mg 07-04 05-20 t} tablet by [facility] tablet 00:00: 00:00 oral route 00 :00 every 2 days gabapentin 2020- No 1{table Q8H take 1 A ccess 800 mg 4-08 05-20 t} tablet by [facility] tablet 00:00: 00:00 oral route 00 :00 3 times every day carvedilol 2020- No take 1 Acce ss 25 mg - 05-20 tablet (25 [facility] tablet 00:00: 00:00 mg) by 00 :00 oral route 2 times per day with food clopidogrel 2020- No take 1 Acc ess 75 mg - 05-20 tablet (75 [facility] tablet 00:00: 00:00 mg) by 00 :00 oral route once daily atorvastati 2020- No take 1 Acc ess n 80 mg 4- 05-20 tablet by [facility] tablet 00:00: 00:00 Oral route 00 :00 1 time per day amlodipine 2020- No take 1 Acce ss 5 mg tablet 07-04 05-20 tablet (5 [facility] 00:00: 00:00 mg) by 00 :00 oral route once daily isosorbide 2020- No take 1 Acce ss mononitrate 07-04 05-20 tablet (60 [facility] 60 mg 00:00: 00:00 mg) by tablet,exte 00 :00 oral route nded once daily release 24 in the hr morning Humalog 2020- No inject [facility] [employer]Pen - 05-20 5-10 Units [facility] (U-100) 00:00: 00:00 by Insulin 100 00 :00 Subcutaneo unit/mL us route 3 subcutaneou times per s day on a sliding scale three times a day before meals Levemir 2020- No inject 50 Acce ss FlexTouch - 05-20 Units by [facility] 00:00: 00:00 Subcutaneo Insulin 100 00 :00 us route 2 unit/mL (3 times per mL) day in the subcutaneou morning s pen and evening metolazone 2020- No 1{table Q2D take 1 A ccess 2.5 mg 07-04 05-20 t} tablet by [facility] tablet 00:00: 00:00 oral route 00 :00 every 2 days gabapentin 2020- No 1{table Q8H take 1 A ccess 800 mg 4-08 05-20 t} tablet by [facility] tablet 00:00: 00:00 oral route 00 :00 3 times every day carvedilol 2020- No take 1 Acce ss 25 mg - 05-20 tablet (25 [facility] tablet 00:00: 00:00 mg) by 00 :00 oral route 2 times per day with food clopidogrel 2020- No take 1 Acc ess 75 mg - 05-20 tablet (75 [facility] tablet 00:00: 00:00 mg) by 00 :00 oral route once daily atorvastati 2020- No take 1 Acc ess n 80 mg 4- 05-20 tablet by [facility] tablet 00:00: 00:00 Oral route 00 :00 1 time per day amlodipine 2020- No take 1 Acce ss 5 mg tablet 07-04 05-20 tablet (5 [facility] 00:00: 00:00 mg) by 00 :00 oral route once daily isosorbide 2020- No take 1 Acce ss mononitrate 07-04 05-20 tablet (60 [facility] 60 mg 00:00: 00:00 mg) by tablet,exte 00 :00 oral route nded once daily release 24 in the hr morning Humalog 2020- No inject [facility] [employer]Pen - 05-20 5-10 Units [facility] (U-100) 00:00: 00:00 by Insulin 100 00 :00 Subcutaneo unit/mL us route 3 subcutaneou times per s day on a sliding scale three times a day before meals Levemir 2020- No inject 50 Acce ss FlexTouch - 05-20 Units by [facility]-100 00:00: 00:00 Subcutaneo Insulin 100 00 :00 us route 2 unit/mL (3 times per mL) day in the subcutaneou morning s pen and evening metolazone 2020- No 1{table Q2D take 1 A ccess 2.5 mg 07-04 05-20 t} tablet by [facility] tablet 00:00: 00:00 oral route 00 :00 every 2 days gabapentin 2020- No 1{table Q8H take 1 A ccess 800 mg 4-08 05-20 t} tablet by [facility] tablet 00:00: 00:00 oral route 00 :00 3 times every day carvedilol 2020- No take 1 Acce ss 25 mg - 05-20 tablet (25 [facility] tablet 00:00: 00:00 mg) by 00 :00 oral route 2 times per day with food clopidogrel 2020- No take 1 Acc ess 75 mg - 05-20 tablet (75 [facility] tablet 00:00: 00:00 mg) by 00 :00 oral route once daily atorvastati 2020- No take 1 Acc ess n 80 mg 4- 05-20 tablet by [facility] tablet 00:00: 00:00 Oral route 00 :00 1 time per day amlodipine 2020- No take 1 Acce ss 5 mg tablet 07-04 05-20 tablet (5 [facility] 00:00: 00:00 mg) by 00 :00 oral route once daily isosorbide 2020- No take 1 Acce ss mononitrate 07-04 05-20 tablet (60 [facility] 60 mg 00:00: 00:00 mg) by tablet,exte 00 :00 oral route nded once daily release 24 in the hr morning Humalog 2020- No inject [facility] [employer]wikPen - 05-20 5-10 Units [facility] (U-100) 00:00: 00:00 by Insulin 100 00 :00 Subcutaneo unit/mL us route 3 subcutaneou times per s day on a sliding scale three times a day before meals Levemir 2020- No inject 50 Acce ss FlexTouch - 05-20 Units by [facility] 00:00: 00:00 Subcutaneo Insulin 100 00 :00 us route 2 unit/mL (3 times per mL) day in the subcutaneou morning s pen and evening metolazone 2020- No 1{table Q2D take 1 A ccess 2.5 mg 07-04 05-20 t} tablet by [facility] tablet 00:00: 00:00 oral route 00 :00 every 2 days gabapentin 2020- No 1{table Q8H take 1 A ccess 800 mg 4-08 05-20 t} tablet by [facility] tablet 00:00: 00:00 oral route 00 :00 3 times every day carvedilol 2020- No take 1 Acce ss 25 mg - 05-20 tablet (25 [facility] tablet 00:00: 00:00 mg) by 00 :00 oral route 2 times per day with food clopidogrel 2020- No take 1 Acc ess 75 mg - 05-20 tablet (75 [facility] tablet 00:00: 00:00 mg) by 00 :00 oral route once daily atorvastati 2020- No take 1 Acc ess n 80 mg 4- 05-20 tablet by [facility] tablet 00:00: 00:00 Oral route 00 :00 1 time per day amlodipine 2020- No take 1 Acce ss 5 mg tablet 07-04 05-20 tablet (5 [facility] 00:00: 00:00 mg) by 00 :00 oral route once daily isosorbide 2020- No take 1 Acce ss mononitrate 07-04 05-20 tablet (60 [facility] 60 mg 00:00: 00:00 mg) by tablet,exte 00 :00 oral route nded once daily release 24 in the hr morning Humalog 2020- No inject Access KwikPen - 05-20 5-10 Units [facility] (U-100) 00:00: 00:00 by Insulin 100 00 :00 Subcutaneo unit/mL us route 3 subcutaneou times per s day on a sliding scale three times a day before meals Levemir 2020- No inject 50 Acce ss FlexTouch - 05-20 Units by [facility] U-100 00:00: 00:00 Subcutaneo Insulin 100 00 :00 us route 2 unit/mL (3 times per mL) day in the subcutaneou morning s pen and evening metolazone 2020- No 1{table Q2D take 1 A ccess 2.5 mg 07-04 05-20 t} tablet by [facility] tablet 00:00: 00:00 oral route 00 :00 every 2 days gabapentin 2020- No 1{table Q8H take 1 A ccess 800 mg 4-08 05-20 t} tablet by [facility] tablet 00:00: 00:00 oral route 00 :00 3 times every day carvedilol 2020- No take 1 Acce ss 25 mg - 05-20 tablet (25 [facility] tablet 00:00: 00:00 mg) by 00 :00 oral route 2 times per day with food clopidogrel 2020- No take 1 Acc ess 75 mg - 05-20 tablet (75 [facility] tablet 00:00: 00:00 mg) by 00 :00 oral route once daily atorvastati 2020- No take 1 Acc ess n 80 mg 4- 05-20 tablet by [facility] tablet 00:00: 00:00 Oral route 00 :00 1 time per day amlodipine 2020- No take 1 Acce ss 5 mg tablet 07-04 05-20 tablet (5 [facility] 00:00: 00:00 mg) by 00 :00 oral route once daily isosorbide 2020- No take 1 Acce ss mononitrate 4-08 05-20 tablet (60 [facility] 60 mg 00:00: 00:00 mg) by tablet,exte 00 :00 oral route nded once daily release 24 in the hr morning Humalog 2020- No inject Access KwikPen - 05-20 5-10 Units [facility] (U-100) 00:00: 00:00 by Insulin 100 00 :00 Subcutaneo unit/mL us route 3 subcutaneou times per s day on a sliding scale three times a day before meals Levemir 2020- No inject 50 Acce ss FlexTouch 4-08 05-20 Units by [facility] U-100 00:00: 00:00 Subcutaneo Insulin 100 00 :00 us route 2 unit/mL (3 times per mL) day in the subcutaneou morning s pen and evening metolazone 2020- No 1{table Q2D take 1 A ccess 2.5 mg 07-04 05-20 t} tablet by [facility] tablet 00:00: 00:00 oral route 00 :00 every 2 days bumetanide 2020- No take 1 Acce ss 1 mg tablet 3-24 05-20 tablet (1 [facility] 00:00: 00:00 mg) by 00 :00 oral route 2 times per day bumetanide 2020- No take 1 Acce ss 1 mg tablet 3-24 05-20 tablet (1 [facility] 00:00: 00:00 mg) by 00 :00 oral route 2 times per day bumetanide 2020- No take 1 Acce ss 1 mg tablet 3-24 05-20 tablet (1 [facility] 00:00: 00:00 mg) by 00 :00 oral route 2 times per day bumetanide 2020- No take 1 [facility] 1 mg tablet 3-24 05-20 tablet (1 [facility] alth 00:00: 00:00 mg) by 00 :00 oral route 2 times per day bumetanide 2020- No take 1 [facility] 1 mg tablet 3-24 05-20 tablet (1 [facility] 00:00: 00:00 mg) by 00 :00 oral route 2 times per day bumetanide 2020- No take 1 [facility] 1 mg tablet 3-24 05-20 tablet (1 [facility] al[facility] 00:00: 00:00 mg) by 00 :00 oral route 2 times per day bumetanide 2020- No take 1 [facility] 1 mg tablet 3-24 05-20 tablet (1 [facility] al[facility] 00:00: 00:00 mg) by 00 :00 oral route 2 times per day bumetanide 2020- No take 1 [facility] 1 mg tablet 3-24 05-20 tablet (1 [facility] alth 00:00: 00:00 mg) by 00 :00 oral route 2 times per day bumetanide 2020- No take 1 [facility] 1 mg tablet 3-24 05-20 tablet (1 [facility] 00:00: 00:00 mg) by 00 :00 oral route 2 times per day bumetanide 2020- No take 1 [facility] 1 mg tablet 324 05-20 tablet (1 [facility] 00:00: 00:00 mg) by 00 :00 oral route 2 times per day Santyl 250 0 No Q1D apply by [facility] unit/gram 1-29 topical Health topical 00:00: route ointment 00 every day to cleansed affected area Santyl 250 0 No Q1D apply by Acc [facility] unit/gram 1-29 topical Health topical 00:00: route ointment 00 every day to cleansed affected area Santyl 250 0 No Q1D apply by Acc [facility] unit/gram 1-29 topical Health topical 00:00: route ointment 00 every day to cleansed affected area Santyl 250 0 No Q1D apply by Acc ess unit/gram 1-29 topical Health topical 00:00: route ointment 00 every day to cleansed affected area Santyl 250 2020-0 2020- No Q1D apply by [facility] unit/gram 1-29 05-20 topical Health topical 00:00: 00:00 route ointment 00 :00 every day to cleansed affected area Santyl 250 2020-0 2020- No Q1D apply by Ac cess unit/gram 1-29 05-20 topical Health topical 00:00: 00:00 route ointment 00 :00 every day to cleansed affected area Santyl 250 2020-0 2020- No Q1D apply by [facility] unit/gram 1-29 05-20 topical Health topical 00:00: 00:00 route ointment 00 :00 every day to cleansed affected area Santyl 250 2020-0 2020- No Q1D apply by [facility] unit/gram 1-29 05-20 topical Health topical 00:00: 00:00 route ointment 00 :00 every day to cleansed affected area Santyl 250 0 2020- No Q1D apply by [facility] unit/gram 1-29 05-20 topical Health topical 00:00: 00:00 route ointment 00 :00 every day to cleansed affected area Santyl 250 2020-0 2020- No Q1D apply by [facility] unit/gram 1-29 05-20 topical Health topical 00:00: 00:00 route ointment 00 :00 every day to cleansed affected area Santyl 250 0 2020- No Q1D apply by [facility] unit/gram 1-29 05-20 topical Health topical 00:00: 00:00 route ointment 00 :00 every day to cleansed affected area Santyl 250 0 2020- No Q1D apply by [facility] unit/gram 1-29 05-20 topical Health topical 00:00: 00:00 route ointment 00 :00 every day to cleansed affected area Santyl 250 0 2020- No Q1D apply by [facility] unit/gram 1-29 05-20 topical Health topical 00:00: 00:00 route ointment 00 :00 every day to cleansed affected area Santyl 250 0 2020- No Q1D apply by [facility] unit/gram 1-29 05-20 topical Health topical 00:00: 00:00 route ointment 00 :00 every day to cleansed affected area insulin 2020-2020- No 50U Q.5D Inject [address] [facility]ir 04-06-09 [facility] (LEVEMIR) 08:46: 00:00 subcutaneo M edical 100 unit/mL 05 :00 usly 2 Center injection (two) times daily . metOLazone 2020- No 2.5mg QD Take 2.[address] [facility] (ZAROXOLYN) 04-06-09 mg by [facility] 2.5 MG 08:46: 00:00 mouth Medical tablet 05 :00 daily. Center amLODIPine 2020- No 5mg QD Take [address] [facility] (NORVASC) 04-06 by mouth [facility] - 10 MG 08:46: 00:00 daily. Medical tablet 05 :00 Center lisinopriL 2020- No 40mg Q.5D Take [address] [facility] (PRINIVIL,Z 04-06 by mouth 2 [facility] - ESTRIL) 40 08:46: 00:00 (two) Medic al MG tablet 05 :00 times Center daily. insulin 2020- No 50U Q.5D Inject [address] [facility] detemir 04-06- Units [facility] (LEVEMIR) 08:46: 00:00 subcutaneo M edical 100 unit/mL 05 :00 usly 2 Center injection (two) times daily . metOLazone 2020- No 2.5mg QD Take 2.[address] [facility] (ZAROXOLYN) 04-06 mg by [facility] - 2.5 MG 08:46: 00:00 mouth Medical tablet 05 :00 daily. [place] amLODIPine 2020- No 5mg QD Take [address] [facility] (NORVASC) 04-06 by mouth [facility] - 10 MG 08:46: 00:00 daily. Medical tablet 05 :00 Center lisinopriL 2020- No 40mg Q.5D Take [address] [facility] (PRINIVIL,Z 04-06 by mouth 2 [facility] - ESTRIL) 40 08:46: 00:00 (two) Medic al MG tablet 05 :00 times Center daily. insulin 2020- No 50U Q.5D Inject [address] [facility] detemir 04-06- Units [facility] (LEVEMIR) 08:46: 00:00 subcutaneo M edical 100 unit/mL 05 :00 usly 2 Center injection (two) times daily . metOLazone 2020- No 2.5mg QD Take 2.[address] [facility] (ZAROXOLYN) 04-06 mg by [facility] - 2.5 MG 08:46: 00:00 mouth Medical tablet 05 :00 daily. Center amLODIPine 2020- No 5mg QD Take [address] [facility] [address] [facility] (NORVASC) 04-06 by mouth [facility] - 10 MG 08:46: 00:00 daily. Medical tablet 05 :00 Center lisinopriL 2020- No 40mg Q.5D Take [address] [facility] (PRINIVIL,Z 04-06 by mouth 2 [facility] - ESTRIL) 40 08:46: 00:00 (two) Medic al MG tablet 05 :00 times Center daily. insulin 2020- No 50U Q.5D Inject [address] [facility] detemir 04-06 Units [facility] (LEVEMIR) 08:46: 00:00 subcutaneo M edical 100 unit/mL 05 :00 usly 2 Center injection (two) times daily . metOLazone 2020- No 2.5mg QD Take 2.[address] [facility] (ZAROXOLYN) 04-06 mg by [facility] - 2.5 MG 08:46: 00:00 mouth Medical tablet 05 :00 daily. [place] amLODIPine 2020- No 5mg QD Take [address] [facility] [address] [facility] (NORVASC) 04-06 by mouth [facility] - 10 MG 08:46: 00:00 daily. Medical tablet 05 :00 Center lisinopriL 2020- No 40mg Q.5D Take [address] [facility] (PRINIVIL,Z 04-06 by mouth 2 [facility] - ESTRIL) 40 08:46: 00:00 (two) Medic al MG tablet 05 :00 times Center daily. insulin 2020- No 50U Q.5D Inject [address] [facility] detemir 04-06 Units [facility] (LEVEMIR) 08:46: 00:00 subcutaneo M edical 100 unit/mL 05 :00 usly 2 Center injection (two) times daily . metOLazone 2020- No 2.5mg QD Take 2.[address] [facility] (ZAROXOLYN) 04-06 mg by [facility] - 2.5 MG 08:46: 00:00 mouth Medical tablet 05 :00 daily. Center amLODIPine 2020- No 5mg QD Take [address] [facility] (NORVASC) 04-06 by mouth [facility] - 10 MG 08:46: 00:00 daily. Medical tablet 05 :00 Center lisinopriL 2020- No 40mg Q.5D Take [address] [facility] (PRINIVIL,Z 04-06 by mouth 2 [facility] - ESTRIL) 40 08:46: 00:00 (two) Medic al MG tablet 05 :00 times Center daily. insulin 2020- No 50U Q.5D Inject [address] [facility] detemir 04-06 [facility] (LEVEMIR) 08:46: 00:00 subcutaneo M edical 100 unit/mL 05 :00 usly 2 Center injection (two) times daily . metOLazone 2020- No 2.5mg QD Take 2.[address] [facility] (ZAROXOLYN) 04-06 mg by [facility] - 2.5 MG 08:46: 00:00 mouth Medical tablet 05 :00 daily. [place] amLODIPine 2020- No 5mg QD Take [address] [facility] [address] [facility] (NORVASC) 04-06 by mouth [facility] - 10 MG 08:46: 00:00 daily. Medical tablet 05 :00 [place] lisinopriL 2020- No 40mg Q.5D Take [address] [facility] (PRINIVIL,Z 04-06 by mouth 2 [facility] - ESTRIL) 40 08:46: 00:00 (two) Medic al MG tablet 05 :00 times Center daily. insulin 2020- No 50U Q.5D Inject [address] [facility] detemir 04-06 [facility] (LEVEMIR) 08:46: 00:00 subcutaneo M edical 100 unit/mL 05 :00 usly 2 Center injection (two) times daily . metOLazone 2020- No 2.5mg QD Take 2.[address] [facility] (ZAROXOLYN) 04-06 mg by [facility] - 2.5 MG 08:46: 00:00 mouth Medical tablet 05 :00 daily. Center amLODIPine No 5mg QD Take [address] [facility] [address] [facility] (NORVASC) 04-06 by mouth [facility] - 10 MG 08:46: 00:00 daily. Medical tablet 05 :00 Center lisinopriL 2020- No 40mg Q.5D Take [address] [facility] (PRINIVIL,Z 04-06 by mouth 2 [facility] - ESTRIL) 40 08:46: 00:00 (two) Medic al MG tablet 05 :00 times Center daily. insulin Yes 25U Q.5D Inject 25 [facility] -[facility] - U-100 00:00: subcutaneo Medica l (LEVEMIR) 00 usly 2 Center 100 unit/mL (two) injection times daily. amLODIPine Yes 5mg QD Take 1 [facility] (NORVASC) 5 - tablet (5 Lo es - MG tablet 00:00: mg total) Med ical 00 by mouth Center daily. collagenase Yes Use for [facility] (SANTYL) 04-06 daily [facility] - 250 units/g 00:00: dressing Me dical ointment 00 changes of Cente r foot wound.. sevelamer Yes 800mg Take 1 [facility] (RENVELA[facility] - tablet [facility] - 800 mg 00:00: (800 mg Medical tablet 00 total) by Center mouth 3 (three) times daily with meals. calcitrioL Yes .25ug QD Take [address] [facility] (ROCALTROL) - capsule [facility] - 0.25 MCG 00:00: (0.25 mcg Medi renuka capsule 00 total) by Center mouth daily. metOLazone Yes 2.5mg Take [address] [facility] (ZAROXOLYN) -09 tablet [facility] - 2.5 MG 00:00: (2.5 mg Medical tablet 00 total) by Center mouth every other day. insulin Yes 25U Q.5D Inject 25 [facility]-09 [facility] - U-100 00:00: subcutaneo Medica l (LEVEMIR) 00 usly 2 Center 100 unit/mL (two) injection times daily. amLODIPine Yes 5mg QD Take 1 [facility] (NORVASC) 5 1-09 tablet (5 Lo es - MG tablet 00:00: mg total) Med ical 00 by mouth Center daily. collagenase Yes Use for [facility] (SANTYL) 1-09 daily [facility] - 250 units/g 00:00: dressing Me dical ointment 00 changes of Cente r foot wound.. sevelamer Yes 800mg Take 1 [facility] (RENVELA) 1-09 tablet [facility] - 800 mg 00:00: (800 mg Medical tablet 00 total) by Center mouth 3 (three) times daily with meals. calcitrioL Yes .25ug QD Take [address] [facility] (ROCALTROL) 1- capsule [facility] - 0.25 MCG 00:00: (0.25 mcg Medi renuka capsule 00 total) by Center mouth daily. metOLazone Yes 2.5mg Take [address] [facility] (ZAROXOLYN) 1-09 tablet [facility] - 2.5 MG 00:00: (2.5 mg Medical tablet 00 total) by Center mouth every other day. insulin Yes 25U Q.5D Inject 25 [facility] 1-[facility] - U-100 00:00: subcutaneo Medica l (LEVEMIR) 00 usly 2 Center 100 unit/mL (two) injection times daily. amLODIPine Yes 5mg QD Take 1 [facility] (NORVASC) 5 1-09 tablet (5 Lo es - MG tablet 00:00: mg total) Med ical 00 by mouth Center daily. collagenase Yes Use for [facility] (SANTYL) 1-09 daily [facility] - 250 units/g 00:00: dressing Me dical ointment 00 changes of Cente r foot wound.. sevelamer Yes 800mg Take 1 [facility] (RENVELA) 1-09 [facility] - 800 mg 00:00: (800 mg Medical tablet 00 total) by Center mouth 3 (three) times daily with meals. calcitrioL 0 Yes .25ug QD Take [address] [facility] (ROCALTROL) 1-09 capsule [facility] - 0.25 MCG 00:00: (0.25 mcg Medi renuka capsule 00 total) by Center mouth daily. metOLazone 0 Yes 2.5mg Take [address] [facility] (ZAROXOLYN) 1-09 tablet [facility] - 2.5 MG 00:00: (2.5 mg Medical tablet 00 total) by Center mouth every other day. insulin 0 Yes 25U Q.5D Inject 25 [facility] 1-[facility] - U-100 00:00: subcutaneo Medica l (LEVEMIR) 00 usly 2 Center 100 unit/mL (two) injection times daily. amLODIPine 0 Yes 5mg QD Take 1 [facility] (NORVASC) 5 1-09 tablet (5 Lo es - MG tablet 00:00: mg total) Med ical 00 by mouth Center daily. collagenase Yes Use for [facility] (SANTYL) 1-09 daily [facility] - 250 units/g 00:00: dressing Me dical ointment 00 changes of Cente r foot wound.. sevelamer 0 Yes 800mg Take 1 [facility] (RENVELA) 1-09 [facility] - 800 mg 00:00: (800 mg Medical tablet 00 total) by Center mouth 3 (three) times daily with meals. calcitrioL 0 Yes .25ug QD Take [address] [facility] (ROCALTROL) 1-09 capsule [facility] - 0.25 MCG 00:00: (0.25 mcg Medi renuka capsule 00 total) by Center mouth daily. metOLazone 0 Yes 2.5mg Take [address] [facility] (ZAROXOLYN) 1-09 tablet [facility] - 2.5 MG 00:00: (2.5 mg Medical tablet 00 total) by Center mouth every other day. insulin 0 Yes 25U Q.5D Inject 25 [facility] 1-[facility] - U-100 00:00: subcutaneo Medica l (LEVEMIR) 00 usly 2 Center 100 unit/mL (two) injection times daily. amLODIPine 2020-0 Yes 5mg QD Take 1 [facility] (NORVASC) 5 1-09 tablet (5 Lo es - MG tablet 00:00: mg total) Med ical 00 by mouth Center daily. collagenase Yes Use for [facility] (SANTYL) 1-09 daily [facility] - 250 units/g 00:00: dressing Me dical ointment 00 changes of Cente r foot wound.. sevelamer 0 Yes 800mg Take 1 [facility] (RENVELA) 1-09 [facility] - 800 mg 00:00: (800 mg Medical tablet 00 total) by Center mouth 3 (three) times daily with meals. calcitrioL 0 Yes .25ug QD Take [address] [facility] (ROCALTROL) 1-09 capsule [facility] - 0.25 MCG 00:00: (0.25 mcg Medi renuka capsule 00 total) by Center mouth daily. metOLazone Yes 2.5mg Take [address] [facility] (ZAROXOLYN) 1-09 tablet [facility] - 2.5 MG 00:00: (2.5 mg Medical tablet 00 total) by Center mouth every other day. insulin 0 Yes 25U Q.5D Inject 25 [facility] 1-[facility] - U-100 00:00: subcutaneo Medica l (LEVEMIR) 00 usly 2 Center 100 unit/mL (two) injection times daily. amLODIPine 0 Yes 5mg QD Take 1 [facility] (NORVASC) 5 1-09 tablet (5 Lo es - MG tablet 00:00: mg total) Med ical 00 by mouth Center daily. collagenase Yes Use for [facility] (SANTYL) 1-09 daily [facility] - 250 units/g 00:00: dressing Me dical ointment 00 changes of Cente r foot wound.. sevelamer 0 Yes 800mg Take 1 [facility] (RENVELA) 1-09 [facility] - 800 mg 00:00: (800 mg Medical tablet 00 total) by Center mouth 3 (three) times daily with meals. calcitrioL 0 Yes .25ug QD Take [address] [facility] (ROCALTROL) 1-09 capsule [facility] - 0.25 MCG 00:00: (0.25 mcg Medi renuka capsule 00 total) by Center mouth daily. metOLazone Yes 2.5mg Take [address] [facility] (ZAROXOLYN) 1-09 tablet [facility] - 2.5 MG 00:00: (2.5 mg Medical tablet 00 total) by Center mouth every other day. insulin Yes 25U Q.5D Inject 25 [facility] - U-100 00:00: subcutaneo Medica l (LEVEMIR) 00 usly 2 Center 100 unit/mL (two) injection times daily. amLODIPine Yes 5mg QD Take 1 [facility] (NORVASC) 5 -09 tablet (5 Lo es - MG tablet 00:00: mg total) Med ical 00 by mouth Center daily. collagenase Yes Use for [facility] (SANTYL) - daily [facility] - 250 units/g 00:00: dressing Me dical ointment 00 changes of Cente r foot wound.. sevelamer Yes 800mg Take 1 [facility] (RENVELA[facility] - tablet [facility] - 800 mg 00:00: (800 mg Medical tablet 00 total) by Center mouth 3 (three) times daily with meals. calcitrioL Yes .25ug QD Take [address] [facility] (ROCALTROL) - capsule [facility] - 0.25 MCG 00:00: (0.25 mcg Medi renuka capsule 00 total) by Center mouth daily. metOLazone Yes 2.5mg Take [address] [facility] (ZAROXOLYN) - tablet [facility] - 2.5 MG 00:00: (2.5 mg Medical tablet 00 total) by Center mouth every other day. HYDROcodone 2020- No 1{tbl} Take [address] [facility] -acetaminop 04-06- tablet by Siddhartha robertson (NORCO 00:00: 00:00 mouth Medic al 5-325) 00 :00 every 6 Center 5-325 mg (six) per tablet hours as needed for Pain. Max Daily Amount: 4 tablets HYDROcodone 2020- No 1{tbl} Take [address] [facility] -acetaminop 04-06- tablet by Siddhartha robertson (NORCO 00:00: 00:00 mouth Medic al 5-325) 00 :00 every 6 Center 5-325 mg (six) per tablet hours as needed for Pain. Max Daily Amount: 4 tablets HYDROcodone 2020- No 1{tbl} Take [address] [facility] -acetaminop 04-06 tablet by Siddhartha robertson (NORCO 00:00: 00:00 mouth Medic al 5-325) 00 :00 every 6 Center 5-325 mg (six) per tablet hours as needed for Pain. Max Daily Amount: 4 tablets HYDROcodone 2020- No 1{tbl} Take [address] [facility] -acetaminop 04-06 tablet by Siddhartha robertson (NORCO 00:00: 00:00 mouth Medic al 5-325) 00 :00 every 6 Center 5-325 mg (six) per tablet hours as needed for Pain. Max Daily Amount: 4 tablets HYDROcodone 2020- No 1{tbl} Take [address] [facility] -acetaminop 04-06 tablet by Siddhartha robertson (NATRONA 00:00: 00:00 mouth Medic al 5-325) 00 :00 every 6 Center 5-325 mg (six) per tablet hours as needed for Pain. Max Daily Amount: 4 tablets HYDROcodone 2020- No 1{tbl} Take [address] [facility] -acetaminop 04-06 tablet by Siddhartha robertson (NATRONA 00:00: 00:00 mouth Medic al 5-325) 00 :00 every 6 Center 5-325 mg (six) per tablet hours as needed for Pain. Max Daily Amount: 4 tablets HYDROcodone 2020- No 1{tbl} Take [address] [facility] -acetaminop 04-06 tablet by Siddhartha robertson (NATRONA 00:00: 00:00 mouth Medic al 5-325) 00 :00 every 6 Center 5-325 mg (six) per tablet hours as needed for Pain. Max Daily Amount: 4 tablets cefePIME 2020- No 2g Q24H Inject [address] [facility] (MAXIPIME) 04-06 02-19 intravenou Siddhartha SIM 2g in 00:00: 23:59 sly daily Me dical 100 mL NS 00 :00 for 41 Center days. doxycycline 2020-0 1- No 100mg Take [address] [facility] (MONODOX) 04-06 capsule [facility] - 100 MG 00:00: 23:59 (100 mg Medical capsule 00 :00 total) by Center mouth every 12 (twelve) hours for 41 days. cefePIME 2021- No 2g Q24H Inject [address] [facility] (MAXIPIME) 04-06 intravenou Siddhartha kes - MBP 2g in 00:00: 23:59 sly daily Me dical 100 mL NS 00 :00 for 41 Center days. doxycycline 2020-0 2021- No 100mg Take [address] [facility] (MONODOX) 04-06 capsule [facility] - 100 MG 00:00: 23:59 (100 mg Medical capsule 00 :00 total) by Center mouth every 12 (twelve) hours for 41 days. cefePIME 2020-0 2021- No 2g Q24H Inject [address] [facility] (MAXIPIME) 04-06 intravenou Siddhartha kes - MBP 2g in 00:00: 23:59 sly daily Me dical 100 mL NS 00 :00 for 41 Center days. doxycycline 2020- No 100mg Take [address] [facility] (MONODOX) 04-06 capsule [facility] - 100 MG 00:00: 23:59 (100 mg Medical capsule 00 :00 total) by Center mouth every 12 (twelve) hours for 41 days. cefePIME 2021- No 2g Q24H Inject [address] [facility] (MAXIPIME) 04-06 intravenou Siddhartha kes - MBP 2g in 00:00: 23:59 sly daily Me dical 100 mL NS 00 :00 for 41 Center days. doxycycline 2020-0 2021- No 100mg Take [address] [facility] (MONODOX) 04-06 [facility] - 100 MG 00:00: 23:59 (100 mg Medical capsule 00 :00 total) by Center mouth every 12 (twelve) hours for 41 days. cefePIME 2020-0 2021- No 2g Q24H Inject [address] [facility] (MAXIPIME) 04-06 intravenou Siddhartha kes - MBP 2g in 00:00: 23:59 sly daily Me dical 100 mL NS 00 :00 for 41 Center days. doxycycline 2020- No 100mg Take [address] [facility] (MONODOX) 04-06 capsule [facility] - 100 MG 00:00: 23:59 (100 mg Medical capsule 00 :00 total) by Center mouth every 12 (twelve) hours for 41 days. cefePIME 2020- No 2g Q24H Inject [address] [facility] (MAXIPIME) 04-06 intravenou Siddhartha kes - MBP 2g in 00:00: 23:59 sly daily Me dical 100 mL NS 00 :00 for 41 Center days. doxycycline 2020- No 100mg Take [address] [facility] (MONODOX) 04-06 capsule [facility] - 100 MG 00:00: 23:59 (100 mg Medical capsule 00 :00 total) by Center mouth every 12 (twelve) hours for 41 days. cefePIME 2020- No 2g Q24H Inject [address] [facility] (MAXIPIME) 04-06 intravenou Siddhartha kes - MBP 2g in 00:00: 23:59 sly daily Me dical 100 mL NS 00 :00 for 41 Center days. doxycycline 2020- No 100mg Take [address] [facility] (MONODOX) 04-06 [facility] - 100 MG 00:00: 23:59 (100 mg Medical capsule 00 :00 total) by Center mouth every 12 (twelve) hours for 41 days. traMADoL 2019-03 No 50mg Take [address] [facility] (ULTRAM) 50 05-21 tablet (50 [facility] - mg tablet 00:00: 00:00 mg total) Me dical 00 :00 by mouth Center every 6 (six) hours as needed for Pain for up to 10 days. Max Daily Amount: 200 mg traMADoL 2019-03- No 50mg Take [address] [facility] (ULTRAM) 50 05-21-09 tablet (50 [facility] - mg tablet 00:00: 00:00 mg total) Me dical 00 :00 by mouth Center every 6 (six) hours as needed for Pain for up to 10 days. Max Daily Amount: 200 mg traMADoL 2019-03- No 50mg Take [address] [facility] (ULTRAM) 50 05-21 tablet (50 [facility] - mg tablet 00:00: 00:00 mg total) Me dical 00 :00 by mouth Center every 6 (six) hours as needed for Pain for up to 10 days. Max Daily Amount: 200 mg traMADoL 2019-03 No 50mg Take [address] [facility] (ULTRAM) 50 05-21 tablet (50 [facility] - mg tablet 00:00: 00:00 mg total) Me dical 00 :00 by mouth Center every 6 (six) hours as needed for Pain for up to 10 days. Max Daily Amount: 200 mg traMADoL 2019-03 No 50mg Take [address] [facility] (ULTRAM) 50 05-21 tablet (50 [facility] - mg tablet 00:00: 00:00 mg total) Me dical 00 :00 by mouth Center every 6 (six) hours as needed for Pain for up to 10 days. Max Daily Amount: 200 mg traMADoL 2019-03 No 50mg Take [address] [facility] (ULTRAM) 50 05-21 tablet (50 [facility] - mg tablet 00:00: 00:00 mg total) Me dical 00 :00 by mouth Center every 6 (six) hours as needed for Pain for up to 10 days. Max Daily Amount: 200 mg traMADoL 2019-03 No 50mg Take [address] [facility] (ULTRAM) 50 05-21 tablet (50 [facility] - mg tablet 00:00: 00:00 mg total) Me dical 00 :00 by mouth Center every 6 (six) hours as needed for Pain for up to 10 days. Max Daily Amount: 200 mg clindamycin 2019-03- No 300mg [id number] Take [address] [facility] (CLEOCIN) 05-21- [id number] capsule [facility] - 300 MG 00:00: 23:59 3D (300 mg Medical capsule 00 :00 total) by Center mouth 3 (three) times daily for 7 days. clindamycin 2019-03 No 300mg Q.[id number] Take [address] [facility] (CLEOCIN) -20 03-30 [id number] capsule [facility] - 300 MG 00:00: 23:59 3D (300 mg Medical capsule 00 :00 total) by Center mouth 3 (three) times daily for 7 days. clindamycin 2019-03- No 300mg Q.[id number] Take [address] [facility] (CLEOCIN) 2-30 [id number] capsule [facility] - 300 MG 00:00: 23:59 3D (300 mg Medical capsule 00 :00 total) by Center mouth 3 (three) times daily for 7 days. clindamycin 2019-03- No 300mg Q.[id number] Take [address] [facility] (CLEOCIN) 2-30 [id number] capsule [facility] - 300 MG 00:00: 23:59 3D (300 mg Medical capsule 00 :00 total) by Center mouth 3 (three) times daily for 7 days. clindamycin 2019-03- No 300mg Q.[id number] Take [address] [facility] (CLEOCIN) 2- [id number] capsule [facility] - 300 MG 00:00: 23:59 3D (300 mg Medical capsule 00 :00 total) by Center mouth 3 (three) times daily for 7 days. clindamycin 2019-03- No 300mg Q.[id number] Take [address] [facility] (CLEOCIN) 05-21- [id number] [facility] - 300 MG 00:00: 23:59 3D (300 mg Medical capsule 00 :00 total) by Center mouth 3 (three) times daily for 7 days. clindamycin 2019-03- No 300mg Q.[id number] Take [address] [facility] (CLEOCIN) 05-21- [id number] [facility] - 300 MG 00:00: 23:59 3D (300 mg Medical capsule 00 :00 total) by Center mouth 3 (three) times daily for 7 days. bumetanide 2019-03 No take 1 [facility] 1 mg tablet 2-09 tablet (1 [facility] 00:[facility]: mg) by 00 oral route 2 times per day amlodipine 2019-03 No take 1 [facility] 5 mg tablet 2-09 tablet (5 [facility] 00:00: mg) by 00 oral route once daily atorvastati 2019-03 No take 1 [facility] n 80 mg 2-09 tablet by Health tablet 00:00: Oral route 00 1 time per day carvedilol 2019-03 No take 1 [facility] 25 mg 2-09 tablet (25 Health tablet 00:00: mg) by 00 oral route 2 times per day with food clopidogrel 2019-03 No take 1 [facility] 75 mg 2-09 tablet (75 Health tablet 00:00: mg) by 00 oral route once daily gabapentin 2019-03 No 1{table Q8H take 1 [facility] 800 mg 2-09 t} tablet by Health tablet 00:00: oral route 00 3 times every day Humalog 2019-03 No inject kit=boxes [facility] KwikPen 2-09 5-10 Units Health (U-100) 00:00: by Insulin 100 00 Subcutaneo unit/mL us route 3 subcutaneou times per s day on a sliding scale three times a day before meals isosorbide 2019-03 No take 1 [facility] mononitrate 2-09 tablet (60 He alth ER 60 mg 00:00: mg) by tablet,exte 00 oral route nded once daily release 24 in the hr morning Levemir 2019-03 No inject 50 kit=boxes Access FlexTouch 2-09 Units by for 3 Healt h U-100 00:00: Subcutaneo month Insulin 100 00 us route 2 supply unit/mL (3 times per mL) day in the subcutaneou morning s pen and evening bumetanide 2019-03 No take 1 [facility] 1 mg tablet 2-09 tablet (1 [facility] 00:00: mg) by 00 oral route 2 times per day amlodipine 2019-03 No take 1 [facility] 5 mg tablet 2-09 tablet (5 [facility] 00:00: mg) by 00 oral route once daily atorvastati 2019-03 No take 1 [facility] n 80 mg 2-09 tablet by Health tablet 00:00: Oral route 00 1 time per day carvedilol 2019-03 No take 1 [facility] 25 mg 2-09 tablet (25 Health tablet 00:00: mg) by 00 oral route 2 times per day with food clopidogrel 2019-03 No take 1 [facility] 75 mg 2-09 tablet (75 Health tablet 00:00: mg) by 00 oral route once daily gabapentin 2019-03 No 1{table Q8H take 1 [facility] 800 mg 2-09 t} tablet by Health tablet 00:00: oral route 00 3 times every day Humalog 2019-03 No inject kit=boxes [facility] KwikPen 2-09 5-10 Units Health (U-100) 00:00: by Insulin 100 00 Subcutaneo unit/mL us route 3 subcutaneou times per s day on a sliding scale three times a day before meals isosorbide 2019-03 No take 1 [facility] mononitrate 2-09 tablet (60 He alth ER 60 mg 00:00: mg) by tablet,exte 00 oral route nded once daily release 24 in the hr morning Levemir 2019-03 No inject 50 kit=boxes Access FlexTouch 2-09 Units by for 3 Healt h U-100 00:00: Subcutaneo month Insulin 100 00 us route 2 supply unit/mL (3 times per mL) day in the subcutaneou morning s pen and evening bumetanide 2019-03 No take 1 Acces s 1 mg tablet 2-09 tablet (1 Hea lth 00:00: mg) by 00 oral route 2 times per day metolazone 2019-03 No take 1 Acces s 5 mg tablet 2-09 tablet (5 Hea lth 00:00: mg) by 00 oral route once daily amlodipine 2019-03 No take 1 Acces s 5 mg tablet 2-09 tablet (5 Hea lth 00:00: mg) by 00 oral route once daily atorvastati 2019-03 No take 1 Acce ss n 80 mg 2-09 tablet by Health tablet 00:00: Oral route 00 1 time per day carvedilol 2019-03 No take 1 [facility] 25 mg 2-09 tablet (25 [facility] tablet 00:00: mg) by 00 oral route 2 times per day with food clopidogrel 2019-03 No take 1 [facility] 75 mg 2-09 tablet (75 [facility] tablet 00:00: mg) by 00 oral route once daily gabapentin 2019-03 No 1{table Q8H take 1 Ac cess 800 mg 2-09 t} tablet by Health tablet 00:00: oral route 00 3 times every day Humalog 2019-03 No inject kit=boxes Acc ess KwikPen 2-09 5-10 Units Health (U-100) 00:00: by Insulin 100 00 Subcutaneo unit/mL us route 3 subcutaneou times per s day on a sliding scale three times a day before meals isosorbide 2019-03 No take 1 [facility] mononitrate 2-09 tablet (60 [facility] al[facility] ER 60 mg 00:00: mg) by tablet,exte 00 oral route nded once daily release 24 in the hr morning Levemir 2019-03 No inject 50 kit=boxes Access FlexTouch 2-09 Units by for 3 [facility] U-100 00:00: Subcutaneo month Insulin 100 00 us route 2 supply unit/mL (3 times per mL) day in the subcutaneou morning s pen and evening lisinopril 2019-03 No take 1 [facility] 40 mg 2-09 tablet (40 Health tablet 00:00: mg) by 00 oral route once daily bumetanide 2019-03 No take 1 [facility] 1 mg tablet 2-09 tablet (1 [facility] 00:00: mg) by 00 oral route 2 times per day metolazone 2019-03 No take 1 [facility] 5 mg tablet 2-09 tablet (5 [facility] 00:00: mg) by 00 oral route once daily amlodipine 2019-03 No take 1 [facility] 5 mg tablet 2-09 tablet (5 [facility] 00:00: mg) by 00 oral route once daily atorvastati 2019-03 No take 1 [facility] n 80 mg 2-09 tablet by Health tablet 00:00: Oral route 00 1 time per day carvedilol 2019-03 No take 1 [facility] 25 mg 2-09 tablet (25 [facility] tablet 00:00: mg) by 00 oral route 2 times per day with food clopidogrel 2019-03 No take 1 [facility] 75 mg 2-09 tablet (75 [facility] tablet 00:00: mg) by 00 oral route once daily gabapentin 2019-03 No 1{table Q8H take 1 Ac cess 800 mg 2-09 t} tablet by Health tablet 00:00: oral route 00 3 times every day Humalog 2019-03 No inject kit=boxes Acc ess KwikPen 2-09 5-10 Units Health (U-100) 00:00: by Insulin 100 00 Subcutaneo unit/mL us route 3 subcutaneou times per s day on a sliding scale three times a day before meals isosorbide 2019-03 No take 1 [facility] mononitrate 2-09 tablet (60 [facility] ER 60 mg 00:00: mg) by tablet,exte 00 oral route nded once daily release 24 in the hr morning Levemir 2019-03 No inject 50 kit=boxes Access FlexTouch 2-09 Units by for 3 [facility] U-100 00:00: Subcutaneo month Insulin 100 00 us route 2 supply unit/mL (3 times per mL) day in the subcutaneou morning s pen and evening lisinopril 2019-03 No take 1 [facility] 40 mg 2-09 tablet (40 [facility] tablet 00:00: mg) by 00 oral route once daily bumetanide 2019-03 No take 1 [facility] 1 mg tablet 2-09 tablet (1 [facility] 00:00: mg) by 00 oral route 2 times per day amlodipine 2019-03 No take 1 [facility] 5 mg tablet 2-09 tablet (5 [facility] 00:00: mg) by 00 oral route once daily atorvastati 2019-03 No take 1 [facility] n 80 mg 2-09 tablet by [facility] tablet 00:00: Oral route 00 1 time per day carvedilol 2019-03 No take 1 [facility] 25 mg 2-09 tablet (25 [facility] tablet 00:00: mg) by 00 oral route 2 times per day with food clopidogrel 2019-03 No take 1 [facility] 75 mg 2-09 tablet (75 [facility] tablet 00:00: mg) by 00 oral route once daily gabapentin 2019-03 No 1{table Q8H take 1 Ac cess 800 mg 2-09 t} tablet by Health tablet 00:00: oral route 00 3 times every day Humalog 2019-03 No inject kit=boxes Acc ess KwikPen 2-09 5-10 Units Health (U-100) 00:00: by Insulin 100 00 Subcutaneo unit/mL us route 3 subcutaneou times per s day on a sliding scale three times a day before meals isosorbide 2019-03 No take 1 [facility] mononitrate 2-09 tablet (60 [facility] ER 60 mg 00:00: mg) by tablet,exte 00 oral route nded once daily release 24 in the hr morning Levemir 2019-03 No inject 50 kit=boxes Access FlexTouch 2-09 Units by for 3 [facility] U-100 00:00: Subcutaneo month Insulin 100 00 us route 2 supply unit/mL (3 times per mL) day in the subcutaneou morning s pen and evening bumetanide 2019-03 No take 1 [facility] 1 mg tablet 2-09 tablet (1 [facility] 00:00: mg) by 00 oral route 2 times per day amlodipine 2019-03 No take 1 [facility] 5 mg tablet 2-09 tablet (5 [facility] 00:00: mg) by 00 oral route once daily atorvastati 2019-03 No take 1 [facility] n 80 mg 2-09 tablet by [facility] tablet 00:00: Oral route 00 1 time per day carvedilol 2019-03 No take 1 [facility] 25 mg 2-09 tablet (25 [facility] tablet 00:00: mg) by 00 oral route 2 times per day with food clopidogrel 2019-03 No take 1 [facility] 75 mg 2-09 tablet (75 [facility] tablet 00:00: mg) by 00 oral route once daily gabapentin 2019-03 No 1{table Q8H take 1 Ac cess 800 mg 2-09 t} tablet by Health tablet 00:00: oral route 00 3 times every day Humalog 2019-03 No inject kit=boxes Acc ess KwikPen 2-09 5-10 Units Health (U-100) 00:00: by Insulin 100 00 Subcutaneo unit/mL us route 3 subcutaneou times per s day on a sliding scale three times a day before meals isosorbide 2019-03 No take 1 [facility] mononitrate 2-09 tablet (60 [facility] ER 60 mg 00:00: mg) by tablet,exte 00 oral route nded once daily release 24 in the hr morning Levemir 2019-03 No inject 50 kit=boxes Access FlexTouch 2-09 Units by for 3 [facility] U-100 00:00: Subcutaneo month Insulin 100 00 us route 2 supply unit/mL (3 times per mL) day in the subcutaneou morning s pen and evening gabapentin 2019-03 Yes Take by [facility] ([facility]ri[facility] 2019-03 [facility] (40 [facility] - ESTR[facility]) 40 00:00: mg) by [facility] tablet 00 oral route Cent er once daily gabapentin 2019-03 Yes Take by [facility] ([facility]URONTIN) 2-09 [facility] - 800 MG 00:00: Medical tablet 00 [place] lisinopriL 2019-03 Yes [facility] tablet (40 [facility] - ESTR[facility]) 40 00:00: mg) by [facility] tablet 00 oral route Cent [facility] once daily gabapentin 2019-03 Yes Take by [facility] (NEURONTIN) 2-09 [facility] - 800 MG 00:00: [facility] tablet 00 [place] lisinopriL 2019-03 Yes take [facility] 2-[facility] tablet (40 [facility] - ESTR[facility]) 40 00:00: mg) by [facility] tablet 00 oral route Cent [facility] once daily gabapentin 2019-03 Yes Take by [facility] (NEURONTIN) 2-09 [facility] - 800 MG 00:00: Medical tablet 00 [place] lisinopriL 2019-03 Yes take [facility] 2-[facility] tablet (40 [facility] - ESTR[facility]) 40 00:00: mg) by [facility] tablet 00 oral route Cent [facility] once daily gabapentin 2019-03 Yes Take by [facility] (NEURONTIN) 2-09 [facility] - 800 MG 00:00: Medical tablet 00 [place] lisinopriL 2019-03 Yes take [facility] 2-[facility] tablet (40 [facility] - ESTRIL) 40 00:00: mg) by [facility] tablet 00 oral route Cent [facility] once daily gabapentin 2019-03 Yes Take by [facility] (NEURONTIN) 2-09 [facility] - 800 MG 00:00: Medical tablet 00 [place] lisinopriL 2019-03 Yes [facility] 2-[facility] tablet (40 [facility] - ESTR[facility]) 40 00:00: mg) by [facility] tablet 00 oral route Cent er once daily gabapentin 2019-03 Yes Take by [facility] (NEURONTIN) 2-09 [facility] - 800 MG 00:00: [facility] tablet 00 [place] lisinopriL 2019-03 Yes take [facility] 2-09 tablet (40 [facility] - ESTRIL) 40 00:00: mg) by [facility] tablet 00 oral route Cent [facility] once daily amlodipine 2019-03- No take 1 [facility] 5 mg tablet 05-07 tablet (5 [facility] 00:00: 00:00 mg) by 00 :00 oral route once daily atorvastati 2019-03- No take 1 [facility] n 80 mg 05-07 tablet by Health tablet 00:00: 00:00 Oral route 00 :00 1 time per day carvedilol 2019-03 No take 1 [facility] 25 mg 05-07 tablet (25 [facility] tablet 00:00: 00:00 mg) by 00 :00 oral route 2 times per day with food clopidogrel 2019-03 No take 1 [facility] 75 mg 05-07 tablet (75 [facility] tablet 00:00: 00:00 mg) by 00 :00 oral route once daily gabapentin 2019-03- No 1{table Q8H take 1 A ccess 800 mg 05-07 t} tablet by [facility] tablet 00:00: 00:00 oral route 00 :00 3 times every day Humalog 2019-03 inject kit=boxes Ac cess KwikPen 05-07 5-10 Units [facility]alt [facility] (U-100) 00:00: 00:00 by Insulin 100 00 :00 Subcutaneo unit/mL us route 3 subcutaneou times per s day on a sliding scale three times a day before meals isosorbide 2019-03- No take 1 [facility] mononitrate 05-07 tablet (60 [facility] ER 60 mg 00:00: 00:00 mg) by tablet,exte 00 :00 oral route nded once daily release 24 in the hr morning Levemir 2019-03- No inject 50 kit=boxes Access FlexTouch 05-07 Units by for 3 [facility] U-100 00:00: 00:00 Subcutaneo month Insulin 100 00 :00 us route 2 supply unit/mL (3 times per mL) day in the subcutaneou morning s pen and evening amlodipine 2019-03- No take 1 [facility] 5 mg tablet 05-07 tablet (5 [facility] 00:00: 00:00 mg) by 00 :00 oral route once daily atorvastati 2019-03- No take 1 [facility] n 80 mg 05-07 tablet by [facility] tablet 00:00: 00:00 Oral route 00 :00 1 time per day carvedilol 2019-03- No take 1 [facility] 25 mg 05-07 tablet (25 [facility] tablet 00:00: 00:00 mg) by 00 :00 oral route 2 times per day with food clopidogrel 2019-03 No take 1 [facility] 75 mg 05-07 tablet (75 [facility] tablet 00:00: 00:00 mg) by 00 :00 oral route once daily gabapentin 2019-03- No 1{table Q8H take 1 A ccess 800 mg 05-07 t} tablet by Health tablet 00:00: 00:00 oral route 00 :00 3 times every day Humalog 2019-03- No inject kit=boxes Ac cess KwikPen 05-07 5-10 Units [facility]alt [facility] (U-100) 00:00: 00:00 by Insulin 100 00 :00 Subcutaneo unit/mL us route 3 subcutaneou times per s day on a sliding scale three times a day before meals isosorbide 2019-03- No take 1 [facility] mononitrate 05-07 tablet (60 [facility] ER 60 mg 00:00: 00:00 mg) by tablet,exte 00 :00 oral route nded once daily release 24 in the hr morning Levemir 2019-03- No inject 50 kit=boxes Access FlexTouch 05-07 Units by for 3 [facility] U-100 00:00: 00:00 Subcutaneo month Insulin 100 00 :00 us route 2 supply unit/mL (3 times per mL) day in the subcutaneou morning s pen and evening amlodipine 2019-03- No take 1 [facility] 5 mg tablet 05-07 tablet (5 [facility] al[facility] 00:00: 00:00 mg) by 00 :00 oral route once daily atorvastati 2019-03- No take 1 [facility] n 80 mg 05-07 tablet by [facility] tablet 00:00: 00:00 Oral route 00 :00 1 time per day carvedilol 2019-03- No take 1 [facility] 25 mg 05-07 tablet (25 [facility] tablet 00:00: 00:00 mg) by 00 :00 oral route 2 times per day with food clopidogrel 2019-03 No take 1 [facility] 75 mg 05-07 tablet (75 [facility] tablet 00:00: 00:00 mg) by 00 :00 oral route once daily gabapentin 2019-03- No 1{table Q8H take 1 A ccess 800 mg 05-07 t} tablet by [facility] tablet 00:00: 00:00 oral route 00 :00 3 times every day Humalog 2019-03- inject kit=boxes Ac cess KwikPen 05-07 5-10 Units [facility]alt [facility] (U-100) 00:00: 00:00 by Insulin 100 00 :00 Subcutaneo unit/mL us route 3 subcutaneou times per s day on a sliding scale three times a day before meals isosorbide 2019-03- No take 1 [facility] mononitrate 05-07 tablet (60 [facility] ER 60 mg 00:00: 00:00 mg) by tablet,exte 00 :00 oral route nded once daily release 24 in the hr morning Levemir 2019-03 No inject 50 kit=boxes Access FlexTouch 05-07 Units by for 3 [facility] U-100 00:00: 00:00 Subcutaneo month Insulin 100 00 :00 us route 2 supply unit/mL (3 times per mL) day in the subcutaneou morning s pen and evening amlodipine 2019-03 No take 1 [facility] 5 mg tablet 05-07 tablet (5 [facility] 00:00: 00:00 mg) by 00 :00 oral route once daily atorvastati 2019-03- No take 1 [facility] n 80 mg 05-07 tablet by Health tablet 00:00: 00:00 Oral route 00 :00 1 time per day carvedilol 2019-03 No take 1 [facility] 25 mg 05-07 tablet (25 [facility] tablet 00:00: 00:00 mg) by 00 :00 oral route 2 times per day with food clopidogrel 2019-03 No take 1 [facility] ess 75 mg 05-07 tablet (75 [facility] tablet 00:00: 00:00 mg) by 00 :00 oral route once daily gabapentin 2019-03- No 1{table Q8H take 1 A ccess 800 mg 05-07 t} tablet by Health tablet 00:00: 00:00 oral route 00 :00 3 times every day Humalog 2019-03- No inject kit=boxes Ac cess KwikPen 05-07 5-10 Units [facility]alt [facility] (U-100) 00:00: 00:00 by Insulin 100 00 :00 Subcutaneo unit/mL us route 3 subcutaneou times per s day on a sliding scale three times a day before meals isosorbide 2019-03- No take 1 [facility] mononitrate 05-07 tablet (60 [facility] ER 60 mg 00:00: 00:00 mg) by tablet,exte 00 :00 oral route nded once daily release 24 in the hr morning Levemir 2019-03- No inject 50 kit=boxes Access FlexTouch 05-07 Units by for 3 [facility] U-100 00:00: 00:00 Subcutaneo month Insulin 100 00 :00 us route 2 supply unit/mL (3 times per mL) day in the subcutaneou morning s pen and evening amlodipine 2019-03- No take 1 [facility] 5 mg tablet 05-07 tablet (5 [facility] al[facility] 00:00: 00:00 mg) by 00 :00 oral route once daily atorvastati 2019-03- No take 1 [facility] ess n 80 mg 05-07 tablet by [facility] tablet 00:00: 00:00 Oral route 00 :00 1 time per day carvedilol 2019-03- No take 1 [facility] 25 mg 05-07 tablet (25 [facility] tablet 00:00: 00:00 mg) by 00 :00 oral route 2 times per day with food clopidogrel 2019-03- No take 1 [facility] ess 75 mg 05-07 tablet (75 [facility] tablet 00:00: 00:00 mg) by 00 :00 oral route once daily gabapentin 2019-03- No 1{table Q8H take 1 A ccess 800 mg 05-07 t} tablet by Health tablet 00:00: 00:00 oral route 00 :00 3 times every day Humalog 2019-03- No inject kit=boxes Ac cess KwikPen 05-07 5-10 Units [facility]alt [facility] (U-100) 00:00: 00:00 by Insulin 100 00 :00 Subcutaneo unit/mL us route 3 subcutaneou times per s day on a sliding scale three times a day before meals isosorbide 2019-03- No take 1 [facility] mononitrate 05-07 tablet (60 [facility] ER 60 mg 00:00: 00:00 mg) by tablet,exte 00 :00 oral route nded once daily release 24 in the hr morning Levemir 2019-03- No inject 50 kit=boxes Access FlexTouch 05-07 Units by for 3 [facility] U-100 00:00: 00:00 Subcutaneo month Insulin 100 00 :00 us route 2 supply unit/mL (3 times per mL) day in the subcutaneou morning s pen and evening amlodipine 2019-03- No take 1 [facility] 5 mg tablet 05-07 tablet (5 [facility] al[facility] 00:00: 00:00 mg) by 00 :00 oral route once daily atorvastati 2019-03- No take 1 [facility] ess n 80 mg 05-07 tablet by [facility] tablet 00:00: 00:00 Oral route 00 :00 1 time per day carvedilol 2019-03- No take 1 [facility] 25 mg 05-07 tablet (25 [facility] tablet 00:00: 00:00 mg) by 00 :00 oral route 2 times per day with food clopidogrel 2019-03- No take 1 [facility] ess 75 mg 05-07 tablet (75 [facility] tablet 00:00: 00:00 mg) by 00 :00 oral route once daily gabapentin 2019-03- No 1{table Q8H take 1 A ccess 800 mg 05-07 t} tablet by [facility] tablet 00:00: 00:00 oral route 00 :00 3 times every day Humalog 2019-03- No inject kit=boxes Ac cess KwikPen 05-07 5-10 Units [facility]alt [facility] (U-100) 00:00: 00:00 by Insulin 100 00 :00 Subcutaneo unit/mL us route 3 subcutaneou times per s day on a sliding scale three times a day before meals isosorbide 2019-03- No take 1 [facility] mononitrate 05-07 tablet (60 [facility] ER 60 mg 00:00: 00:00 mg) by tablet,exte 00 :00 oral route nded once daily release 24 in the hr morning Levemir 2019-03- No inject 50 kit=boxes Access FlexTouch 05-07 Units by for 3 [facility] U-100 00:00: 00:00 Subcutaneo month Insulin 100 00 :00 us route 2 supply unit/mL (3 times per mL) day in the subcutaneou morning s pen and evening amlodipine 2019-03- No take 1 [facility] 5 mg tablet 05-07 tablet (5 [facility] 00:00: 00:00 mg) by 00 :00 oral route once daily atorvastati 2019-03- No take 1 Acc ess n 80 mg 05-07 tablet by [facility] tablet 00:00: 00:00 Oral route 00 :00 1 time per day carvedilol 2019-03- No take 1 [facility] 25 mg 05-07 tablet (25 [facility] tablet 00:00: 00:00 mg) by 00 :00 oral route 2 times per day with food clopidogrel 2019-03- No take 1 [facility] ess 75 mg 05-07 tablet (75 [facility] tablet 00:00: 00:00 mg) by 00 :00 oral route once daily gabapentin 2019-03- No 1{table Q8H take 1 A ccess 800 mg 05-07 t} tablet by Health tablet 00:00: 00:00 oral route 00 :00 3 times every day Humalog 2019-03- No inject kit=boxes Ac cess KwikPen 05-07 5-10 Units [facility]alt [facility] (U-100) 00:00: 00:00 by Insulin 100 00 :00 Subcutaneo unit/mL us route 3 subcutaneou times per s day on a sliding scale three times a day before meals isosorbide 2019-03- No take 1 [facility] mononitrate 05-07 tablet (60 [facility] ER 60 mg 00:00: 00:00 mg) by tablet,exte 00 :00 oral route nded once daily release 24 in the hr morning Levemir 2019-03 No inject 50 kit=boxes Access FlexTouch 05-07 Units by for 3 [facility] U-100 00:00: 00:00 Subcutaneo month Insulin 100 00 :00 us route 2 supply unit/mL (3 times per mL) day in the subcutaneou morning s pen and evening amlodipine 2019-03 No take 1 [facility] 5 mg tablet 05-07 tablet (5 [facility] al[facility] 00:00: 00:00 mg) by 00 :00 oral route once daily atorvastati 2019-03- No take 1 Acc ess n 80 mg 05-07 tablet by Health tablet 00:00: 00:00 Oral route 00 :00 1 time per day carvedilol 2019-03 No take 1 [facility] 25 mg 05-07 tablet (25 [facility] tablet 00:00: 00:00 mg) by 00 :00 oral route 2 times per day with food clopidogrel 2019-03 No take 1 Acc ess 75 mg 05-07 tablet (75 [facility] tablet 00:00: 00:00 mg) by 00 :00 oral route once daily gabapentin 2019-03- No 1{table Q8H take 1 A ccess 800 mg 05-07 t} tablet by Health tablet 00:00: 00:00 oral route 00 :00 3 times every day Humalog 2019-03- No inject kit=boxes Ac cess KwikPen 05-07 5-10 Units [facility] (U-100) 00:00: 00:00 by Insulin 100 00 :00 Subcutaneo unit/mL us route 3 subcutaneou times per s day on a sliding scale three times a day before meals isosorbide 2019-03- No take 1 [facility] mononitrate 05-07 tablet (60 [facility] ER 60 mg 00:00: 00:00 mg) by tablet,exte 00 :00 oral route nded once daily release 24 in the hr morning Levemir 2019-03- No inject 50 kit=boxes Access FlexTouch 05-07 Units by for 3 [facility] U-100 00:00: 00:00 Subcutaneo month Insulin 100 00 :00 us route 2 supply unit/mL (3 times per mL) day in the subcutaneou morning s pen and evening amlodipine 2019-03 No take 1 [facility] 5 mg tablet 05-07 tablet (5 [facility] 00:00: 00:00 mg) by 00 :00 oral route once daily atorvastati 2019-03- No take 1 Acc ess n 80 mg 05-07 tablet by [facility] tablet 00:00: 00:00 Oral route 00 :00 1 time per day carvedilol 2019-03 No take 1 [facility] 25 mg 05-07 tablet (25 Health tablet 00:00: 00:00 mg) by 00 :00 oral route 2 times per day with food clopidogrel 2019-03 No take 1 Acc ess 75 mg 05-07 tablet (75 [facility] tablet 00:00: 00:00 mg) by 00 :00 oral route once daily gabapentin 2019-03- No 1{table Q8H take 1 A ccess 800 mg 05-07 t} tablet by Health tablet 00:00: 00:00 oral route 00 :00 3 times every day Humalog 2019-03- No inject kit=boxes Ac cess KwikPen 05-07 5-10 Units [facility]alt [facility] (U-100) 00:00: 00:00 by Insulin 100 00 :00 Subcutaneo unit/mL us route 3 subcutaneou times per s day on a sliding scale three times a day before meals isosorbide 2019-03- No take 1 [facility] mononitrate 05-07 tablet (60 [facility] ER 60 mg 00:00: 00:00 mg) by tablet,exte 00 :00 oral route nded once daily release 24 in the hr morning Levemir 2019-03 No inject 50 kit=boxes Access FlexTouch 05-07 Units by for 3 [facility] U-100 00:00: 00:00 Subcutaneo month Insulin 100 00 :00 us route 2 supply unit/mL (3 times per mL) day in the subcutaneou morning s pen and evening amlodipine 2019-03- No take 1 [facility] 5 mg tablet 05-07 tablet (5 [facility] 00:00: 00:00 mg) by 00 :00 oral route once daily atorvastati 2019-03- No take 1 Acc ess n 80 mg 05-07 tablet by Health tablet 00:00: 00:00 Oral route 00 :00 1 time per day carvedilol 2019-03 No take 1 [facility] 25 mg 05-07 tablet (25 Health tablet 00:00: 00:00 mg) by 00 :00 oral route 2 times per day with food clopidogrel 2019-03 No take 1 Acc ess 75 mg 05-07 tablet (75 Health tablet 00:00: 00:00 mg) by 00 :00 oral route once daily gabapentin 2019-03- No 1{table Q8H take 1 A ccess 800 mg 05-07 t} tablet by Health tablet 00:00: 00:00 oral route 00 :00 3 times every day Humalog 2019-03 No inject kit=boxes Ac cess KwikPen 05-07 5-10 Units [facility] (U-100) 00:00: 00:00 by Insulin 100 00 :00 Subcutaneo unit/mL us route 3 subcutaneou times per s day on a sliding scale three times a day before meals isosorbide 2019-03- No take 1 [facility] ss mononitrate 05-07 tablet (60 [facility] ER 60 mg 00:00: 00:00 mg) by tablet,exte 00 :00 oral route nded once daily release 24 in the hr morning Levemir 2019-03- No inject 50 kit=boxes Access FlexTouch 05-07 Units by for 3 [facility] U-100 00:00: 00:00 Subcutaneo month Insulin 100 00 :00 us route 2 supply unit/mL (3 times per mL) day in the subcutaneou morning s pen and evening bumetanide 2019-03- No take 1 Acce ss 1 mg tablet 05-0724 tablet (1 [facility] 00:00: 00:00 mg) by 00 :00 oral route 2 times per day bumetanide 2019-03- No take 1 [facility] 1 mg tablet 05-07 tablet (1 [facility] 00:00: 00:00 mg) by 00 :00 oral route 2 times per day bumetanide 2019-03- No take 1 [facility] 1 mg tablet 05-07 tablet (1 [facility] 00:00: 00:00 mg) by 00 :00 oral route 2 times per day bumetanide 2019-03- No take 1 [facility] 1 mg tablet 05-07 tablet (1 [facility] 00:00: 00:00 mg) by 00 :00 oral route 2 times per day bumetanide 2019-03- No take 1 [facility] 1 mg tablet 05-07 tablet (1 [facility] 00:00: 00:00 mg) by 00 :00 oral route 2 times per day bumetanide 2019-03- No take 1 [facility] 1 mg tablet 05-07 tablet (1 [facility] 00:00: 00:00 mg) by 00 :00 oral route 2 times per day bumetanide 2019-03- No take 1 [facility] 1 mg tablet 05-07 tablet (1 [facility] 00:00: 00:00 mg) by 00 :00 oral route 2 times per day bumetanide 2019-03- No take 1 [facility] 1 mg tablet 05-07 tablet (1 [facility] 00:00: 00:00 mg) by 00 :00 oral route 2 times per day bumetanide 2019-03- No take 1 [facility] 1 mg tablet 05-07 tablet (1 [facility] 00:00: 00:00 mg) by 00 :00 oral route 2 times per day bumetanide 2019-03- No take 1 [facility] 1 mg tablet 05-07 tablet (1 [facility] 00:00: 00:00 mg) by 00 :00 oral route 2 times per day metolazone 2019-03- No take 1 [facility] 5 mg tablet 05-07 tablet (5 [facility] 00:00: 00:00 mg) by 00 :00 oral route once daily lisinopril 2019-03- No take 1 [facility] 40 mg 05-07 tablet (40 [facility] tablet 00:00: 00:00 mg) by 00 :00 oral route once daily metolazone 2019-03- No take 1 [facility] 5 mg tablet 05-07 tablet (5 [facility] 00:00: 00:00 mg) by 00 :00 oral route once daily lisinopril 2019-03- No take 1 [facility] 40 mg 05-07 tablet (40 [facility] tablet 00:00: 00:00 mg) by 00 :00 oral route once daily metolazone 2019-03- No take 1 [facility] 5 mg tablet 05-07 tablet (5 [facility] 00:00: 00:00 mg) by 00 :00 oral route once daily lisinopril 2019-03- No take 1 [facility] ss 40 mg 05-07 tablet (40 [facility] tablet 00:00: 00:00 mg) by 00 :00 oral route once daily metolazone 2019-03- No take 1 [facility] 5 mg tablet 05-07 tablet (5 [facility] 00:00: 00:00 mg) by 00 :00 oral route once daily lisinopril 2019-03- No take 1 [facility] ss 40 mg 05-07 tablet (40 [facility] tablet 00:00: 00:00 mg) by 00 :00 oral route once daily metolazone 2019-03- No take 1 [facility] 5 mg tablet 05-07 tablet (5 [facility] 00:00: 00:00 mg) by 00 :00 oral route once daily lisinopril 2019-03- No take 1 Acce ss 40 mg 05-07 tablet (40 [facility] tablet 00:00: 00:00 mg) by 00 :00 oral route once daily metolazone 2019-03- No take 1 [facility] 5 mg tablet 05-07 tablet (5 [facility] 00:00: 00:00 mg) by 00 :00 oral route once daily lisinopril 2019-03- No take 1 Ac[facility] ss 40 mg 05-07 tablet (40 [facility] tablet 00:00: 00:00 mg) by 00 :00 oral route once daily metolazone 2019-03- No take 1 [facility] 5 mg tablet 05-07 tablet (5 [facility] 00:00: 00:00 mg) by 00 :00 oral route once daily lisinopril 2019-03- No take 1 Ac[facility] ss 40 mg 05-07 tablet (40 [facility] tablet 00:00: 00:00 mg) by 00 :00 oral route once daily metolazone 2019-03- No take 1 [facility] 5 mg tablet 05-07 tablet (5 [facility] 00:00: 00:00 mg) by 00 :00 oral route once daily lisinopril 2019-03- No take 1 Acce ss 40 mg 05-07 tablet (40 [facility] tablet 00:00: 00:00 mg) by 00 :00 oral route once daily metolazone 2019-03- No take 1 [facility] 5 mg tablet 05-07 tablet (5 [facility] alth 00:00: 00:00 mg) by 00 :00 oral route once daily lisinopril 2019-03- No take 1 Ac[facility] ss 40 mg 05-07 tablet (40 [facility] tablet 00:00: 00:00 mg) by 00 :00 oral route once daily metolazone 2019-03- No take 1 [facility] 5 mg tablet 05-07 tablet (5 [facility] alth 00:00: 00:00 mg) by 00 :00 oral route once daily lisinopril 2019-03- No take 1 Acce ss 40 mg 05-07 tablet (40 [facility] tablet 00:00: 00:00 mg) by 00 :00 oral route once daily metolazone 2019-03- No take 1 [facility] 5 mg tablet 05-07 tablet (5 [facility] alth 00:00: 00:00 mg) by 00 :00 oral route once daily lisinopril 2019-03- No take 1 [facility] 40 mg 05-07 tablet (40 Health tablet 00:00: 00:00 mg) by 00 :00 oral route once daily metolazone 2019-03- No take 1 [facility] 5 mg tablet 05-07 tablet (5 [facility] 00:00: 00:00 mg) by 00 :00 oral route once daily lisinopril 2019-03- No take 1 [facility] 40 mg 05-07 tablet (40 [facility] tablet 00:00: 00:00 mg) by 00 :00 oral route once daily metolazone 2019-03- No take 1 [facility] 5 mg tablet 05-07 tablet (5 [facility] 00:00: 00:00 mg) by 00 :00 oral route once daily lisinopril 2019-03- No take 1 [facility] 40 mg 05-07 tablet (40 [facility] tablet 00:00: 00:00 mg) by 00 :00 oral route once daily metolazone 2019-03- No take 1 [facility] 5 mg tablet 05-07 tablet (5 [facility] 00:00: 00:00 mg) by 00 :00 oral route once daily lisinopril 2019-03- No take 1 [facility] 40 mg 05-07 tablet (40 [facility] tablet 00:00: 00:00 mg) by 00 :00 oral route once daily sulfamethox 2019- No 160mg{t Q.5D Take [address] [facility] azole-trime 12-01 rimetho tablet Siddhartha kes - thoprim 00:00: 23:59 prim} (160 mg of Me dical ([facility]CTRIM 00 :00 trimethopr Cente r DS) 800-160 im total) mg per by mouth 2 tablet (two) times daily for 10 days smx-tmp DS (BACTRIM) 800-160 mg tabs (1tab q12 D10). sulfamethox 2019- No 160mg{t Q.5D Take [address] [facility] azole-trime 12-0115 rimetho tablet Siddhartha kes - thoprim 00:00: 23:59 prim} (160 mg of Me dical (BACTRIM 00 :00 trimethopr Cente r DS) 800-160 im total) mg per by mouth 2 tablet (two) times daily for 10 days smx-tmp DS (BACTRIM) 800-160 mg tabs (1tab q12 D10). sulfamethox 2019- No 160mg{t Q.5D Take [address] [facility] azole-trime 12-01 rimetho tablet Siddhartha kes - thoprim 00:00: 23:59 prim} (160 mg of Me dical (BACTRIM 00 :00 trimethopr Cente r DS) 800-160 im total) mg per by mouth 2 tablet (two) times daily for 10 days smx-tmp DS (BACTRIM) 800-160 mg tabs (1tab q12 D10). sulfamethox 2020-0 2020- No 160mg{t Q.5D Take [address] [facility] azole-trime 12-01 rimetho tablet Siddhartha kes - thoprim 00:00: 23:59 prim} (160 mg of Me dical (BACTRIM 00 :00 trimethopr Cente r DS) 800-160 im total) mg per by mouth 2 tablet (two) times daily for 10 days smx-tmp DS (BACTRIM) 800-160 mg tabs (1tab q12 D10). sulfamethox 0 2020- No 160mg{t Q.5D Take [address] [facility] azole-trime 12-01 rimetho tablet Siddhartha kes - thoprim 00:00: 23:59 prim} (160 mg of Me dical (BACTRIM 00 :00 trimethopr Cente r DS) 800-160 im total) mg per by mouth 2 tablet (two) times daily for 10 days smx-tmp DS (BACTRIM) 800-160 mg tabs (1tab q12 D10). sulfamethox 2019-0 2020- No 160mg{t Q.5D Take [address] [facility] azole-trime 12-01 rimetho tablet Siddhartha kes - thoprim 00:00: 23:59 prim} (160 mg of Me dical (BACTRIM 00 :00 trimethopr Cente r DS) 800-160 im total) mg per by mouth 2 tablet (two) times daily for 10 days smx-tmp DS (BACTRIM) 800-160 mg tabs (1tab q12 D10). HYDROcodone 2019-0 2020- No 1{tbl} Take [address] [facility] -acetaminop 12-01 tablet by Siddhartha robertson ([facility] 00:00: 23:59 mouth Medic al 5-325) 00 :00 every 6 Center 5-325 mg (six) per tablet hours as needed for Pain for up to 7 days. Max Daily Amount: 4 tablets HYDROcodone 2019-2019- No 1{tbl} Take [address] [facility] -acetaminop 9-05 -12 tablet by Siddhartha robertson ([facility] 00:00: 23:59 mouth Medic al 5-325) 00 :00 every 6 Center 5-325 mg (six) per tablet hours as needed for Pain for up to 7 days. Max Daily Amount: 4 tablets HYDROcodone 2019- No 1{tbl} Take [address] -acetaminop 9-08 04- tablet by Siddhartha robertson ([facility] 00:00: 23:59 mouth Medic al 5-325) 00 :00 every 6 Center 5-325 mg (six) per tablet hours as needed for Pain for up to 7 days. Max Daily Amount: 4 tablets HYDROcodone No 1{tbl} Take [address] -acetaminop 9-12-08 tablet by Siddhartha robertson ([facility] 00:00: 23:59 mouth Medic al 5-325) 00 :00 every 6 Center 5-325 mg (six) per tablet hours as needed for Pain for up to 7 days. Max Daily Amount: 4 tablets amlodipine No take 1 [facility] 5 mg tablet 8-13 tablet (5 [facility] 00:00: mg) by 00 oral route once daily atorvastati No take 1 [facility] n 80 mg 8-13 tablet by Health tablet 00:00: Oral route 00 1 time per day bumetanide No take 1 [facility] 1 mg tablet 8-13 tablet (1 [facility] 00:00: mg) by 00 oral route 2 times per day carvedilol No take 1 [facility] 25 mg 8-13 tablet (25 [facility] tablet 00:00: mg) by 00 oral route 2 times per day with food clopidogrel No take 1 [facility] 75 mg 8-13 tablet (75 [facility] tablet 00:00: mg) by 00 oral route once daily gabapentin No 1{table Q8H take 1 [facility] 800 mg 8-13 t} tablet by Health tablet 00:00: oral route 00 3 times every day Humalog 2019- No inject Access KwikPen 8-13 5-10 Units Health (U-100) 00:00: by Insulin 100 00 Subcutaneo unit/mL us route 3 subcutaneou times per s day on a sliding scale three times a day before meals isosorbide No take 1 [facility] mononitrate 8-13 tablet (60 [facility] ER 60 mg 00:00: mg) by tablet,exte 00 oral route nded once daily release 24 in the hr morning Levemir No inject 50 [facility] FlexTouch 8-13 Units by Health U-100 00:00: Subcutaneo Insulin 100 00 us route 2 unit/mL (3 times per mL) day in the subcutaneou morning s pen and evening lisinopril No take 1 [facility] 40 mg 11-08 tablet (40 [facility] tablet 00:00: mg) by 00 oral route once daily metolazone No take 1 [facility] 5 mg tablet 11-08 tablet (5 [facility] 00:00: mg) by 00 oral route once daily amlodipine 2019- No take 1 [facility] 5 mg tablet 11-08 tablet (5 [facility] 00:00: 00:00 mg) by 00 :00 oral route once daily atorvastati 2019- No take 1 [facility] n 80 mg 11-08 tablet by Health tablet 00:00: 00:00 Oral route 00 :00 1 time per day bumetanide 2019- No take 1 [facility] 1 mg tablet 11-08 tablet (1 [facility] 00:00: 00:00 mg) by 00 :00 oral route 2 times per day carvedilol 2019- No take 1 [facility] 25 mg 11-08 tablet (25 [facility] tablet 00:00: 00:00 mg) by 00 :00 oral route 2 times per day with food clopidogrel 2019- No take 1 [facility] 75 mg 11-08 tablet (75 [facility] tablet 00:00: 00:00 mg) by 00 :00 oral route once daily gabapentin 2019- No 1{table Q8H take 1 [facility]cess 800 mg 11-08 t} tablet by Health tablet 00:00: 00:00 oral route 00 :00 3 times every day Humalog 2019- No inject Access KwikPen 11-08 5-10 Units [facility]alt [facility] (U-100) 00:00: 00:00 by Insulin 100 00 :00 Subcutaneo unit/mL us route 3 subcutaneou times per s day on a sliding scale three times a day before meals isosorbide 2019- No take 1 [facility] mononitrate 11-08 tablet (60 [facility] ER 60 mg 00:00: 00:00 mg) by tablet,exte 00 :00 oral route nded once daily release 24 in the hr morning Levemir inject 50 [facility] FlexTouch 11-08 Units by [facility]alt [facility] U-100 00:00: 00:00 Subcutaneo Insulin 100 00 :00 us route 2 unit/mL (3 times per mL) day in the subcutaneou morning s pen and evening lisinopril 2019- No take 1 [facility] 40 mg 11-08 tablet (40 [facility] tablet 00:00: 00:00 mg) by 00 :00 oral route once daily metolazone No take 1 [facility] 5 mg tablet 11-08 tablet (5 [facility] 00:00: 00:00 mg) by 00 :00 oral route once daily amlodipine No take 1 [facility] 5 mg tablet 11-08 tablet (5 [facility] 00:00: 00:00 mg) by 00 :00 oral route once daily atorvastati 2019- No take 1 [facility] n 80 mg 11-08 tablet by [facility] tablet 00:00: 00:00 Oral route 00 :00 1 time per day bumetanide 2019- No take 1 [facility] 1 mg tablet 11-08 tablet (1 [facility] 00:00: 00:00 mg) by 00 :00 oral route 2 times per day carvedilol 2019- No take 1 [facility] 25 mg 11-08 tablet (25 [facility] tablet 00:00: 00:00 mg) by 00 :00 oral route 2 times per day with food clopidogrel No take 1 [facility] 75 mg 11-08 tablet (75 [facility] tablet 00:00: 00:00 mg) by 00 :00 oral route once daily gabapentin No 1{table Q8H take 1 [facility]cess 800 mg 11-08 t} tablet by Health tablet 00:00: 00:00 oral route 00 :00 3 times every day Humalog inject Access KwikPen 11-08 5-10 Units [facility]alt [facility] (U-100) 00:00: 00:00 by Insulin 100 00 :00 Subcutaneo unit/mL us route 3 subcutaneou times per s day on a sliding scale three times a day before meals isosorbide take 1 [facility] mononitrate 11-08 tablet (60 [facility] 60 mg 00:00: 00:00 mg) by tablet,exte 00 :00 oral route nded once daily release 24 in the hr morning Levemir inject 50 [facility] FlexTouch 11-08 Units by [facility] U-100 00:00: 00:00 Subcutaneo Insulin 100 00 :00 us route 2 unit/mL (3 times per mL) day in the subcutaneou morning s pen and evening lisinopril take 1 [facility] 40 mg 11-08 tablet (40 [facility] tablet 00:00: 00:00 mg) by 00 :00 oral route once daily metolazone take 1 [facility] 5 mg tablet 11-08 tablet (5 [facility] 00:00: 00:00 mg) by 00 :00 oral route once daily amlodipine take 1 [facility] 5 mg tablet 11-08 tablet (5 [facility] 00:00: 00:00 mg) by 00 :00 oral route once daily atorvastati take 1 [facility] n 80 mg 11-08 tablet by [facility] tablet 00:00: 00:00 Oral route 00 :00 1 time per day bumetanide take 1 [facility] 1 mg tablet 11-08 tablet (1 [facility] 00:00: 00:00 mg) by 00 :00 oral route 2 times per day carvedilol take 1 [facility] 25 mg 11-08 tablet (25 [facility] tablet 00:00: 00:00 mg) by 00 :00 oral route 2 times per day with food clopidogrel No take 1 [facility] 75 mg 11-08 tablet (75 [facility] tablet 00:00: 00:00 mg) by 00 :00 oral route once daily gabapentin 2019- No 1{table Q8H take 1 A [facility]cess 800 mg 11-08 t} tablet by Health tablet 00:00: 00:00 oral route 00 :00 3 times every day Humalog inject Access KwikPen 11-08 5-10 Units [facility] (U-100) 00:00: 00:00 by Insulin 100 00 :00 Subcutaneo unit/mL us route 3 subcutaneou times per s day on a sliding scale three times a day before meals isosorbide take 1 [facility] mononitrate 11-08 tablet (60 [facility] 60 mg 00:00: 00:00 mg) by tablet,exte 00 :00 oral route nded once daily release 24 in the hr morning Levemir inject 50 [facility] FlexTouch 11-08 Units by [facility] U-100 00:00: 00:00 Subcutaneo Insulin 100 00 :00 us route 2 unit/mL (3 times per mL) day in the subcutaneou morning s pen and evening lisinopril take 1 [facility] 40 mg 11-08 tablet (40 [facility] tablet 00:00: 00:00 mg) by 00 :00 oral route once daily metolazone take 1 [facility] 5 mg tablet 11-08 tablet (5 [facility] 00:00: 00:00 mg) by 00 :00 oral route once daily amlodipine No take 1 [facility] 5 mg tablet 11-08 tablet (5 [facility] 00:00: 00:00 mg) by 00 :00 oral route once daily atorvastati 2019- No take 1 [facility] n 80 mg 11-08 tablet by [facility] tablet 00:00: 00:00 Oral route 00 :00 1 time per day bumetanide No take 1 [facility] 1 mg tablet 11-08 tablet (1 [facility] 00:00: 00:00 mg) by 00 :00 oral route 2 times per day carvedilol take 1 [facility] 25 mg 11-08 tablet (25 [facility] tablet 00:00: 00:00 mg) by 00 :00 oral route 2 times per day with food clopidogrel take 1 [facility] 75 mg 11-08 tablet (75 [facility] tablet 00:00: 00:00 mg) by 00 :00 oral route once daily gabapentin No 1{table Q8H take 1 A [facility]cess 800 mg 11-08 t} tablet by Health tablet 00:00: 00:00 oral route 00 :00 3 times every day Humalog inject Access KwikPen 11-08 5-10 Units [facility] (U-100) 00:00: 00:00 by Insulin 100 00 :00 Subcutaneo unit/mL us route 3 subcutaneou times per s day on a sliding scale three times a day before meals isosorbide No take 1 [facility] mononitrate 11-08 tablet (60 [facility] 60 mg 00:00: 00:00 mg) by tablet,exte 00 :00 oral route nded once daily release 24 in the hr morning Levemir inject 50 [facility] FlexTouch 11-08 Units by [facility] U-100 00:00: 00:00 Subcutaneo Insulin 100 00 :00 us route 2 unit/mL (3 times per mL) day in the subcutaneou morning s pen and evening lisinopril take 1 [facility] 40 mg 11-08 tablet (40 [facility] tablet 00:00: 00:00 mg) by 00 :00 oral route once daily metolazone 2020-0 2020- No take 1 [facility] 5 mg tablet 11-08 tablet (5 [facility] 00:00: 00:00 mg) by 00 :00 oral route once daily amlodipine 2019- No take 1 [facility] 5 mg tablet 11-08 tablet (5 [facility] 00:00: 00:00 mg) by 00 :00 oral route once daily atorvastati 2019- No take 1 [facility] n 80 mg 11-08 tablet by [facility] tablet 00:00: 00:00 Oral route 00 :00 1 time per day bumetanide 2019- No take 1 [facility] 1 mg tablet 11-08 tablet (1 [facility] 00:00: 00:00 mg) by 00 :00 oral route 2 times per day carvedilol No take 1 [facility] 25 mg 11-08 tablet (25 [facility] tablet 00:00: 00:00 mg) by 00 :00 oral route 2 times per day with food clopidogrel No take 1 [facility] 75 mg 11-08 tablet (75 [facility] tablet 00:00: 00:00 mg) by 00 :00 oral route once daily gabapentin 2019- No 1{table Q8H take 1 A [facility]cess 800 mg 11-08 t} tablet by Health tablet 00:00: 00:00 oral route 00 :00 3 times every day Humalog 2019- No inject Access KwikPen 11-08 5-10 Units [facility] (U-100) 00:00: 00:00 by Insulin 100 00 :00 Subcutaneo unit/mL us route 3 subcutaneou times per s day on a sliding scale three times a day before meals isosorbide 2019- No take 1 [facility] mononitrate 11-08 tablet (60 [facility] 60 mg 00:00: 00:00 mg) by tablet,exte 00 :00 oral route nded once daily release 24 in the hr morning Levemir 2019- No inject 50 [facility] FlexTouch 11-08 Units by [facility] U-100 00:00: 00:00 Subcutaneo Insulin 100 00 :00 us route 2 unit/mL (3 times per mL) day in the subcutaneou morning s pen and evening lisinopril 2019- No take 1 [facility] 40 mg 11-08 tablet (40 [facility] tablet 00:00: 00:00 mg) by 00 :00 oral route once daily metolazone No take 1 [facility] 5 mg tablet 11-08 tablet (5 [facility] 00:00: 00:00 mg) by 00 :00 oral route once daily amlodipine take 1 [facility] 5 mg tablet 11-08 tablet (5 [facility] 00:00: 00:00 mg) by 00 :00 oral route once daily atorvastati No take 1 [facility] n 80 mg 11-08 tablet by [facility] tablet 00:00: 00:00 Oral route 00 :00 1 time per day bumetanide No take 1 [facility] 1 mg tablet 11-08 tablet (1 [facility] 00:00: 00:00 mg) by 00 :00 oral route 2 times per day carvedilol take 1 [facility] 25 mg 11-08 tablet (25 [facility] tablet 00:00: 00:00 mg) by 00 :00 oral route 2 times per day with food clopidogrel take 1 [facility] 75 mg 11-08 tablet (75 [facility] tablet 00:00: 00:00 mg) by 00 :00 oral route once daily gabapentin 2019- No 1{table Q8H take 1 A ccess 800 mg 11-08 t} tablet by Health tablet 00:00: 00:00 oral route 00 :00 3 times every day Humalog 2019- No inject Access KwikPen 11-08 5-10 Units [facility] (U-100) 00:00: 00:00 by Insulin 100 00 :00 Subcutaneo unit/mL us route 3 subcutaneou times per s day on a sliding scale three times a day before meals isosorbide 2019- No take 1 [facility] mononitrate 11-08 tablet (60 [facility] 60 mg 00:00: 00:00 mg) by tablet,exte 00 :00 oral route nded once daily release 24 in the hr morning Levemir 2019- No inject 50 [facility] FlexTouch 11-08 Units by [facility] U-100 00:00: 00:00 Subcutaneo Insulin 100 00 :00 us route 2 unit/mL (3 times per mL) day in the subcutaneou morning s pen and evening lisinopril 2019- No take 1 [facility] 40 mg 11-08 tablet (40 [facility] tablet 00:00: 00:00 mg) by 00 :00 oral route once daily metolazone 2019- No take 1 [facility] 5 mg tablet 11-08 tablet (5 [facility] 00:00: 00:00 mg) by 00 :00 oral route once daily amlodipine 2019- No take 1 [facility] 5 mg tablet 11-08 tablet (5 [facility] 00:00: 00:00 mg) by 00 :00 oral route once daily atorvastati 2019- No take 1 [facility] n 80 mg 11-08 tablet by [facility] tablet 00:00: 00:00 Oral route 00 :00 1 time per day bumetanide 2019- No take 1 [facility] 1 mg tablet 11-08 tablet (1 [facility] 00:00: 00:00 mg) by 00 :00 oral route 2 times per day carvedilol 2019- No take 1 [facility] 25 mg 11-08 tablet (25 [facility] tablet 00:00: 00:00 mg) by 00 :00 oral route 2 times per day with food clopidogrel 2019- No take 1 [facility] 75 mg 11-08 tablet (75 [facility] tablet 00:00: 00:00 mg) by 00 :00 oral route once daily gabapentin 2019- No 1{table Q8H take 1 A ccess 800 mg 11-08 t} tablet by Health tablet 00:00: 00:00 oral route 00 :00 3 times every day Humalog 2019- No inject Access KwikPen 11-08 5-10 Units [facility] (U-100) 00:00: 00:00 by Insulin 100 00 :00 Subcutaneo unit/mL us route 3 subcutaneou times per s day on a sliding scale three times a day before meals isosorbide 2019- No take 1 [facility] mononitrate 11-08 tablet (60 [facility] ER 60 mg 00:00: 00:00 mg) by tablet,exte 00 :00 oral route nded once daily release 24 in the hr morning Levemir 2019- No inject [facility] Subcutaneo Insulin 100 00 :00 us route 2 unit/mL (3 times per mL) day in the subcutaneou morning s pen and evening lisinopril No take 1 [facility] 40 mg 11-08 tablet (40 [facility] tablet 00:00: 00:00 mg) by 00 :00 oral route once daily metolazone 2019- No take 1 [facility] 5 mg tablet 11-08 tablet (5 [facility] 00:00: 00:00 mg) by 00 :00 oral route once daily amlodipine 2019- No take 1 [facility] 5 mg tablet 11-08 tablet (5 [facility] 00:00: 00:00 mg) by 00 :00 oral route once daily atorvastati 2019- No take 1 [facility] n 80 mg 11-08 tablet by [facility] tablet 00:00: 00:00 Oral route 00 :00 1 time per day bumetanide 2019- No take 1 [facility] 1 mg tablet 11-08 tablet (1 [facility] 00:00: 00:00 mg) by 00 :00 oral route 2 times per day carvedilol 2019- No take 1 [facility] 25 mg 11-08 tablet (25 [facility] tablet 00:00: 00:00 mg) by 00 :00 oral route 2 times per day with food clopidogrel 2019- No take 1 [facility] 75 mg 11-08 tablet (75 [facility] tablet 00:00: 00:00 mg) by 00 :00 oral route once daily gabapentin 2019- No 1{table Q8H take 1 A ccess 800 mg 11-08 t} tablet by Health tablet 00:00: 00:00 oral route 00 :00 3 times every day Humalog 2019- No inject Access KwikPen 11-08 5-10 Units [facility] (U-100) 00:00: 00:00 by Insulin 100 00 :00 Subcutaneo unit/mL us route 3 subcutaneou times per s day on a sliding scale three times a day before meals isosorbide 2019- No take 1 [facility] mononitrate 11-08 tablet (60 [facility] ER 60 mg 00:00: 00:00 mg) by tablet,exte 00 :00 oral route nded once daily release 24 in the hr morning Levemir No inject 50 [facility] FlexTouch 11-08 Units by [facility] U-100 00:00: 00:00 Subcutaneo Insulin 100 00 :00 us route 2 unit/mL (3 times per mL) day in the subcutaneou morning s pen and evening lisinopril 2019- No take 1 [facility] 40 mg 11-08 tablet (40 [facility] tablet 00:00: 00:00 mg) by 00 :00 oral route once daily metolazone 2019- No take 1 [facility] 5 mg tablet 11-08 tablet (5 [facility] 00:00: 00:00 mg) by 00 :00 oral route once daily amlodipine 2019- No take 1 [facility] 5 mg tablet 11-08 tablet (5 [facility] 00:00: 00:00 mg) by 00 :00 oral route once daily atorvastati 2019- No take 1 [facility] ess n 80 mg 11-08 tablet by [facility] tablet 00:00: 00:00 Oral route 00 :00 1 time per day bumetanide 2019- No take 1 [facility] 1 mg tablet 11-08 tablet (1 [facility] 00:00: 00:00 mg) by 00 :00 oral route 2 times per day carvedilol 2019- No take 1 [facility] 25 mg 11-08 tablet (25 [facility] tablet 00:00: 00:00 mg) by 00 :00 oral route 2 times per day with food clopidogrel 2019- No take 1 [facility] ess 75 mg 11-08 tablet (75 [facility] tablet 00:00: 00:00 mg) by 00 :00 oral route once daily gabapentin 2019- No 1{table Q8H take 1 A ccess 800 mg 11-08 t} tablet by Health tablet 00:00: 00:00 oral route 00 :00 3 times every day Humalog inject Access KwikPen 11-08 5-10 Units [facility] (U-100) 00:00: 00:00 by Insulin 100 00 :00 Subcutaneo unit/mL us route 3 subcutaneou times per s day on a sliding scale three times a day before meals isosorbide take 1 [facility] mononitrate 11-08 tablet (60 [facility] ER 60 mg 00:00: 00:00 mg) by tablet,exte 00 :00 oral route nded once daily release 24 in the hr morning Levemir inject 50 [facility] FlexTouch 11-08 Units by [facility] U-100 00:00: 00:00 Subcutaneo Insulin 100 00 :00 us route 2 unit/mL (3 times per mL) day in the subcutaneou morning s pen and evening lisinopril take 1 [facility] 40 mg 11-08 tablet (40 [facility] tablet 00:00: 00:00 mg) by 00 :00 oral route once daily metolazone No take 1 [facility] 5 mg tablet 11-08 tablet (5 [facility] 00:00: 00:00 mg) by 00 :00 oral route once daily amlodipine No take 1 [facility] 5 mg tablet 11-08 tablet (5 [facility] 00:00: 00:00 mg) by 00 :00 oral route once daily atorvastati No take 1 [facility] ess n 80 mg 11-08 tablet by [facility] tablet 00:00: 00:00 Oral route 00 :00 1 time per day bumetanide No take 1 [facility] 1 mg tablet 11-08 tablet (1 [facility] 00:00: 00:00 mg) by 00 :00 oral route 2 times per day carvedilol take 1 [facility] 25 mg 11-08 tablet (25 [facility] tablet 00:00: 00:00 mg) by 00 :00 oral route 2 times per day with food clopidogrel No take 1 [facility] ess 75 mg 11-08 tablet (75 [facility] tablet 00:00: 00:00 mg) by 00 :00 oral route once daily gabapentin 2019- No 1{table Q8H take 1 A ccess 800 mg 11-08 t} tablet by Health tablet 00:00: 00:00 oral route 00 :00 3 times every day Humalog inject Access KwikPen 11-08 5-10 Units [facility] (U-100) 00:00: 00:00 by Insulin 100 00 :00 Subcutaneo unit/mL us route 3 subcutaneou times per s day on a sliding scale three times a day before meals isosorbide take 1 [facility] mononitrate 11-08 tablet (60 [facility] ER 60 mg 00:00: 00:00 mg) by tablet,exte 00 :00 oral route nded once daily release 24 in the hr morning Levemir inject 50 [facility] FlexTouch 11-08 Units by [facility] U-100 00:00: 00:00 Subcutaneo Insulin 100 00 :00 us route 2 unit/mL (3 times per mL) day in the subcutaneou morning s pen and evening lisinopril No take 1 [facility] 40 mg 11-08 tablet (40 [facility] tablet 00:00: 00:00 mg) by 00 :00 oral route once daily metolazone No take 1 [facility] 5 mg tablet 11-08 tablet (5 [facility] 00:00: 00:00 mg) by 00 :00 oral route once daily amlodipine No take 1 [facility] 5 mg tablet 11-08 tablet (5 [facility] 00:00: 00:00 mg) by 00 :00 oral route once daily atorvastati take 1 Acc ess n 80 mg 11-08 tablet by Health tablet 00:00: 00:00 Oral route 00 :00 1 time per day bumetanide take 1 [facility] 1 mg tablet 11-08 tablet (1 [facility] 00:00: 00:00 mg) by 00 :00 oral route 2 times per day carvedilol take 1 [facility] 25 mg 11-08 tablet (25 [facility] tablet 00:00: 00:00 mg) by 00 :00 oral route 2 times per day with food clopidogrel take 1 Acc ess 75 mg 11-08 tablet (75 [facility] tablet 00:00: 00:00 mg) by 00 :00 oral route once daily gabapentin 1{table Q8H take 1 A ccess 800 mg 11-08 t} tablet by [facility] tablet 00:00: 00:00 oral route 00 :00 3 times every day Humalog inject Access KwikPen 11-08 5-10 Units [facility] (U-100) 00:00: 00:00 by Insulin 100 00 :00 Subcutaneo unit/mL us route 3 subcutaneou times per s day on a sliding scale three times a day before meals isosorbide take 1 [facility] mononitrate 11-08 tablet (60 [facility] 60 mg 00:00: 00:00 mg) by tablet,exte 00 :00 oral route nded once daily release 24 in the hr morning Levemir inject 50 [facility] FlexTouch 11-08 Units by [facility] U-100 00:00: 00:00 Subcutaneo Insulin 100 00 :00 us route 2 unit/mL (3 times per mL) day in the subcutaneou morning s pen and evening lisinopril take 1 [facility] 40 mg 11-08 tablet (40 [facility] tablet 00:00: 00:00 mg) by 00 :00 oral route once daily metolazone take 1 [facility] 5 mg tablet 11-08 tablet (5 [facility] 00:00: 00:00 mg) by 00 :00 oral route once daily amlodipine 2019- No take 1 [facility] 5 mg tablet 11-08 tablet (5 [facility] 00:00: 00:00 mg) by 00 :00 oral route once daily atorvastati No take 1 Acc ess n 80 mg 11-08 tablet by [facility] tablet 00:00: 00:00 Oral route 00 :00 1 time per day bumetanide No take 1 [facility] 1 mg tablet 11-08 tablet (1 [facility] 00:00: 00:00 mg) by 00 :00 oral route 2 times per day carvedilol take 1 [facility] 25 mg 11-08 tablet (25 [facility] tablet 00:00: 00:00 mg) by 00 :00 oral route 2 times per day with food clopidogrel No take 1 Acc ess 75 mg 11-08 tablet (75 [facility] tablet 00:00: 00:00 mg) by 00 :00 oral route once daily gabapentin 2019- No 1{table Q8H take 1 A ccess 800 mg 11-08 t} tablet by Health tablet 00:00: 00:00 oral route 00 :00 3 times every day Humalog No inject Access KwikPen 11-08 5-10 Units [facility] (U-100) 00:00: 00:00 by Insulin 100 00 :00 Subcutaneo unit/mL us route 3 subcutaneou times per s day on a sliding scale three times a day before meals isosorbide 2019- No take 1 [facility] mononitrate 11-08 tablet (60 [facility] ER 60 mg 00:00: 00:00 mg) by tablet,exte 00 :00 oral route nded once daily release 24 in the hr morning Levemir 2019- No inject 50 [facility] FlexTouch 11-08 Units by [facility] U-100 00:00: 00:00 Subcutaneo Insulin 100 00 :00 us route 2 unit/mL (3 times per mL) day in the subcutaneou morning s pen and evening lisinopril No take 1 [facility] 40 mg 11-08 tablet (40 [facility] tablet 00:00: 00:00 mg) by 00 :00 oral route once daily metolazone No take 1 [facility] 5 mg tablet 11-08 tablet (5 [facility] 00:00: 00:00 mg) by 00 :00 oral route once daily amlodipine take 1 [facility] 5 mg tablet 11-08 tablet (5 [facility] 00:00: 00:00 mg) by 00 :00 oral route once daily atorvastati take 1 Acc ess n 80 mg 11-08 tablet by [facility] tablet 00:00: 00:00 Oral route 00 :00 1 time per day bumetanide take 1 [facility] 1 mg tablet 11-08 tablet (1 [facility] 00:00: 00:00 mg) by 00 :00 oral route 2 times per day carvedilol take 1 [facility] 25 mg 11-08 tablet (25 [facility] tablet 00:00: 00:00 mg) by 00 :00 oral route 2 times per day with food clopidogrel take 1 Acc ess 75 mg 11-08 tablet (75 [facility] tablet 00:00: 00:00 mg) by 00 :00 oral route once daily gabapentin No 1{table Q8H take 1 A ccess 800 mg 11-08 t} tablet by Health tablet 00:00: 00:00 oral route 00 :00 3 times every day Humalog inject Access KwikPen 11-08 5-10 Units [facility] (U-100) 00:00: 00:00 by Insulin 100 00 :00 Subcutaneo unit/mL us route 3 subcutaneou times per s day on a sliding scale three times a day before meals isosorbide No take 1 [facility] mononitrate 11-08 tablet (60 [facility] ER 60 mg 00:00: 00:00 mg) by tablet,exte 00 :00 oral route nded once daily release 24 in the hr morning Levemir 2019- No inject 50 [facility] FlexTouch 11-08 Units by [facility] U-100 00:00: 00:00 Subcutaneo Insulin 100 00 :00 us route 2 unit/mL (3 times per mL) day in the subcutaneou morning s pen and evening lisinopril 2019- No take 1 Acce ss 40 mg 11-08 tablet (40 [facility] tablet 00:00: 00:00 mg) by 00 :00 oral route once daily metolazone 2019- No take 1 Ac[facility] ss 5 mg tablet 11-08 tablet (5 [facility] 00:00: 00:00 mg) by 00 :00 oral route once daily amlodipine No take 1 Ac[facility] ss 5 mg tablet 11-08 tablet (5 [facility] 00:00: 00:00 mg) by 00 :00 oral route once daily atorvastati 2019- No take 1 Acc ess n 80 mg 11-08 tablet by [facility] tablet 00:00: 00:00 Oral route 00 :00 1 time per day bumetanide 2019- No take 1 Acce ss 1 mg tablet 11-08 tablet (1 [facility] 00:00: 00:00 mg) by 00 :00 oral route 2 times per day carvedilol 2019- No take 1 Acce ss 25 mg 11-08 tablet (25 [facility] tablet 00:00: 00:00 mg) by 00 :00 oral route 2 times per day with food clopidogrel 2019- No take 1 Acc ess 75 mg 11-08 tablet (75 [facility] tablet 00:00: 00:00 mg) by 00 :00 oral route once daily gabapentin 2019- No 1{table Q8H take 1 A ccess 800 mg 11-08 t} tablet by Health tablet 00:00: 00:00 oral route 00 :00 3 times every day Humalog 2019- No inject Access KwikPen 11-08 5-10 Units [facility] (U-100) 00:00: 00:00 by Insulin 100 00 :00 Subcutaneo unit/mL us route 3 subcutaneou times per s day on a sliding scale three times a day before meals isosorbide 2019- No take 1 [facility] mononitrate 11-08 tablet (60 [facility] ER 60 mg 00:00: 00:00 mg) by tablet,exte 00 :00 oral route nded once daily release 24 in the hr morning Levemir 2019- No inject 50 [facility] ss FlexTouch 11-08 Units by [facility] U-100 00:00: 00:00 Subcutaneo Insulin 100 00 :00 us route 2 unit/mL (3 times per mL) day in the [facility] morning s pen and evening lisinopril 2019- No take 1 Acce ss 40 mg 11-08 tablet (40 [facility] tablet 00:00: 00:00 mg) by 00 :00 oral route once daily metolazone 2019- No take 1 Acce ss 5 mg tablet 11-08 tablet (5 [facility] 00:00: 00:00 mg) by 00 :00 oral route once daily amlodipine 2019- No take 1 Acce ss 5 mg tablet 11-08 tablet (5 [facility] 00:00: 00:00 mg) by 00 :00 oral route once daily atorvastati No take 1 Acc ess n 80 mg 11-08 tablet by [facility] tablet 00:00: 00:00 Oral route 00 :00 1 time per day bumetanide 2019- No take 1 Acce ss 1 mg tablet 11-08 tablet (1 [facility] 00:00: 00:00 mg) by 00 :00 oral route 2 times per day carvedilol 2019- No take 1 Acce ss 25 mg 11-08 tablet (25 [facility] tablet 00:00: 00:00 mg) by 00 :00 oral route 2 times per day with food clopidogrel No take 1 Acc ess 75 mg 11-08 tablet (75 [facility] tablet 00:00: 00:00 mg) by 00 :00 oral route once daily gabapentin 2019- No 1{table Q8H take 1 A ccess 800 mg 11-08 t} tablet by [facility] tablet 00:00: 00:00 oral route 00 :00 3 times every day Humalog 2019- No inject Access KwikPen 11-08 5-10 Units [facility] (U-100) 00:00: 00:00 by Insulin 100 00 :00 Subcutaneo unit/mL us route 3 subcutaneou times per s day on a sliding scale three times a day before meals isosorbide 2019- No take 1 [facility] mononitrate 11-08 tablet (60 [facility] ER 60 mg 00:00: 00:00 mg) by tablet,exte 00 :00 oral route nded once daily release 24 in the hr morning Levemir 2019- inject 50 [facility] ss FlexTouch 11-08 Units by [facility] U-100 00:00: 00:00 Subcutaneo Insulin 100 00 :00 us route 2 unit/mL (3 times per mL) day in the subcutaneou morning s pen and evening lisinopril 2019- No take 1 Acce ss 40 mg 11-08 tablet (40 [facility] tablet 00:00: 00:00 mg) by 00 :00 oral route once daily metolazone 2019- No take 1 Acce ss 5 mg tablet 11-08 tablet (5 [facility] 00:00: 00:00 mg) by 00 :00 oral route once daily amlodipine 2019- No take 1 Acce ss 5 mg tablet 11-08 tablet (5 [facility] 00:00: 00:00 mg) by 00 :00 oral route once daily atorvastati 2019- No take 1 Acc ess n 80 mg 11-08 tablet by [facility] tablet 00:00: 00:00 Oral route 00 :00 1 time per day bumetanide 2019- No take 1 Acce ss 1 mg tablet 11-08 tablet (1 [facility] 00:00: 00:00 mg) by 00 :00 oral route 2 times per day carvedilol 2019- No take 1 Acce ss 25 mg 11-08 tablet (25 [facility] tablet 00:00: 00:00 mg) by 00 :00 oral route 2 times per day with food clopidogrel 2019- No take 1 Acc ess 75 mg 11-08 tablet (75 [facility] tablet 00:00: 00:00 mg) by 00 :00 oral route once daily gabapentin 2019- No 1{table Q8H take 1 A ccess 800 mg 11-08 t} tablet by [facility] tablet 00:00: 00:00 oral route 00 :00 3 times every day Humalog 2019- No inject Access KwikPen 11-08 5-10 Units [facility] (U-100) 00:00: 00:00 by Insulin 100 00 :00 Subcutaneo unit/mL us route 3 subcutaneou times per s day on a sliding scale three times a day before meals isosorbide 2019- No take 1 Acce ss mononitrate 11-08 tablet (60 [facility] ER 60 mg 00:00: 00:00 mg) by tablet,exte 00 :00 oral route nded once daily release 24 in the hr morning Levemir 2019- No inject 50 Ac[facility] ss FlexTouch 11-08 Units by [facility] U-100 00:00: 00:00 Subcutaneo Insulin 100 00 :00 us route 2 unit/mL (3 times per mL) day in the subcutaneou morning s pen and evening lisinopril 2019- No take 1 Acce ss 40 mg 11-08 tablet (40 [facility] tablet 00:00: 00:00 mg) by 00 :00 oral route once daily metolazone 2019- No take 1 Acce ss 5 mg tablet 11-08 tablet (5 [facility] al[facility] 00:00: 00:00 mg) by 00 :00 oral route once daily gabapentin 2019- No 1{table Q8H take 1 A ccess 800 mg 11-08 t} tablet by [facility] tablet 00:00: 00:00 oral route 00 :00 3 times every day gabapentin 2019-2019- No 1{table Q8H take 1 A ccess 800 mg 11-08 t} tablet by [facility] tablet 00:00: 00:00 oral route 00 :00 3 times every day gabapentin 2019-2019- No 1{table Q8H take 1 A ccess 800 mg 11-08 t} tablet by [facility] tablet 00:00: 00:00 oral route 00 :00 3 times every day gabapentin 2020-0 2020- No 1{table Q8H take 1 A ccess 800 mg 8-13 08-13 t} tablet by [facility] tablet 00:00: 00:00 oral route 00 :00 3 times every day gabapentin 2020-0 2020- No 1{table Q8H take 1 A ccess 800 mg 8-13 08-13 t} tablet by [facility] tablet 00:00: 00:00 oral route 00 :00 3 times every day gabapentin 2020-0 2020- No 1{table Q8H take 1 A ccess 800 mg 8-13 08-13 t} tablet by [facility] tablet 00:00: 00:00 oral route 00 :00 3 times every day gabapentin 2020-0 2020- No 1{table Q8H take 1 A ccess 800 mg 8-13 08-13 t} tablet by [facility] tablet 00:00: 00:00 oral route 00 :00 3 times every day gabapentin 2020-0 2020- No 1{table Q8H take 1 A ccess 800 mg 8-13 08-13 t} tablet by Health tablet 00:00: 00:00 oral route 00 :00 3 times every day gabapentin 2020-0 2020- No 1{table Q8H take 1 A ccess 800 mg 8-13 08-13 t} tablet by [facility] tablet 00:00: 00:00 oral route 00 :00 3 times every day gabapentin 2020-0 2020- No 1{table Q8H take 1 A ccess 800 mg 8-13 08-13 t} tablet by [facility] tablet 00:00: 00:00 oral route 00 :00 3 times every day gabapentin 2020-0 2020- No 1{table Q8H take 1 A ccess 800 mg 8-13 08-13 t} tablet by [facility] tablet 00:00: 00:00 oral route 00 :00 3 times every day gabapentin 2020-0 2020- No 1{table Q8H take 1 A ccess 800 mg 8-13 08-13 t} tablet by [facility] tablet 00:00: 00:00 oral route 00 :00 3 times every day gabapentin 2020-0 2020- No 1{table Q8H take 1 A ccess 800 mg 8-13 08-13 t} tablet by [facility] tablet 00:00: 00:00 oral route 00 :00 3 times every day gabapentin 2020-0 2020- No 1{table Q8H take 1 A ccess 800 mg 8-13 08-13 t} tablet by [facility] tablet 00:00: 00:00 oral route 00 :00 3 times every day gabapentin 2020-0 2020- No 1{table Q8H take 1 A ccess 800 mg 8-13 08-13 t} tablet by [facility] tablet 00:00: 00:00 oral route 00 :00 3 times every day gabapentin 2020-0 2020- No 1{table Q8H take 1 A ccess 800 mg 8-13 08-13 t} tablet by [facility] tablet 00:00: 00:00 oral route 00 :00 3 times every day gabapentin 2020-0 2020- No 1{table Q8H take 1 A ccess 800 mg 8-13 08-13 t} tablet by [facility] tablet 00:00: 00:00 oral route 00 :00 3 times every day gabapentin 2020-0 2020- No 1{table Q8H take 1 A ccess 800 mg 8-13 08-13 t} tablet by [facility] tablet 00:00: 00:00 oral route 00 :00 3 times every day gabapentin 2020-0 2020- No 1{table Q8H take 1 A ccess 800 mg 8-13 08-13 t} tablet by [facility] tablet 00:00: 00:00 oral route 00 :00 3 times every day gabapentin 2020-0 2020- No 1{table Q8H take 1 A ccess 800 mg 8-13 08-13 t} tablet by [facility] tablet 00:00: 00:00 oral route 00 :00 3 times every day gabapentin 2020-0 2020- No 1{table Q8H take 1 A ccess 800 mg 8-13 08-13 t} tablet by [facility] tablet 00:00: 00:00 oral route 00 :00 3 times every day gabapentin 2020-0 2020- No 1{table Q8H take 1 A ccess 800 mg 8-13 08-13 t} tablet by [facility] tablet 00:00: 00:00 oral route 00 :00 3 times every day gabapentin 2020-0 2020- No 1{table Q8H take 1 A ccess 800 mg 8-13 08-13 t} tablet by [facility] tablet 00:00: 00:00 oral route 00 :00 3 times every day gabapentin 2020-0 2020- No 1{table Q8H take 1 A ccess 800 mg 8-13 08-13 t} tablet by [facility] tablet 00:00: 00:00 oral route 00 :00 3 times every day gabapentin 2020-0 2020- No 1{table Q8H take 1 A ccess 800 mg 8-13 08-13 t} tablet by [facility] tablet 00:00: 00:00 oral route 00 :00 3 times every day gabapentin 2020-0 2020- No 1{table Q8H take 1 A ccess 800 mg 8-13 08-13 t} tablet by [facility] tablet 00:00: 00:00 oral route 00 :00 3 times every day gabapentin 2020-0 2020- No 1{table Q8H take 1 A ccess 800 mg 8-13 08-13 t} tablet by Health tablet 00:00: 00:00 oral route 00 :00 3 times every day gabapentin 2020-0 2020- No 1{table Q8H take 1 A ccess 800 mg 8-13 08-13 t} tablet by [facility] tablet 00:00: 00:00 oral route 00 :00 3 times every day gabapentin 2020-0 2020- No 1{table Q8H take 1 A ccess 800 mg 8-13 08-13 t} tablet by [facility] tablet 00:00: 00:00 oral route 00 :00 3 times every day gabapentin 2020-0 2020- No 1{table Q8H take 1 A ccess 800 mg 8-13 08-13 t} tablet by Health tablet 00:00: 00:00 oral route 00 :00 3 times every day gabapentin 2020-0 2020- No 1{table Q8H take 1 A ccess 800 mg 8-13 08-13 t} tablet by Health tablet 00:00: 00:00 oral route 00 :00 3 times every day gabapentin 2020-0 2020- No 1{table Q8H take 1 A ccess 800 mg 8-13 08-13 t} tablet by Health tablet 00:00: 00:00 oral route 00 :00 3 times every day gabapentin 2020-0 2020- No 1{table Q8H take 1 A ccess 800 mg 8-13 08-13 t} tablet by Health tablet 00:00: 00:00 oral route 00 :00 3 times every day gabapentin 2020-0 2020- No 1{table Q8H take 1 A ccess 800 mg 8-13 08-13 t} tablet by [facility] tablet 00:00: 00:00 oral route 00 :00 3 times every day bumetanide 2019-0 2020- No take 1 Acce ss 1 mg tablet 09-27 tablet (1 [facility] alth 00:00: 00:00 mg) by 00 :00 oral route 2 times per day bumetanide 2019-0 2019- No take 1 Acce ss 1 mg tablet 09-27 tablet (1 [facility] alth 00:00: 00:00 mg) by 00 :00 oral route 2 times per day bumetanide 2019-0 2019- No take 1 Acce ss 1 mg tablet 09-27 tablet (1 [facility] alth 00:00: 00:00 mg) by 00 :00 oral route 2 times per day bumetanide 2019-0 2019- No take 1 Acce ss 1 mg tablet 09-27 tablet (1 [facility] alth 00:00: 00:00 mg) by 00 :00 oral route 2 times per day bumetanide 2019-0 2019- No take 1 Acce ss 1 mg tablet 09-27 tablet (1 [facility] alth 00:00: 00:00 mg) by 00 :00 oral route 2 times per day bumetanide 2019-0 2019- No take 1 Acce ss 1 mg tablet 09-27 tablet (1 [facility] alth 00:00: 00:00 mg) by 00 :00 oral route 2 times per day bumetanide 2019-0 2019- No take 1 Acce ss 1 mg tablet 09-27 tablet (1 [facility] alth 00:00: 00:00 mg) by 00 :00 oral route 2 times per day bumetanide 2019-0 2019- No take 1 Acce ss 1 mg tablet 09-27 tablet (1 [facility] alth 00:00: 00:00 mg) by 00 :00 oral route 2 times per day bumetanide 2019-0 2019- No take 1 Acce ss 1 mg tablet 09-27 tablet (1 [facility] alth 00:00: 00:00 mg) by 00 :00 oral route 2 times per day bumetanide 2019-0 2020- No take 1 Acce ss 1 mg tablet 09-27 tablet (1 [facility] alth 00:00: 00:00 mg) by 00 :00 oral route 2 times per day bumetanide 2019-0 2019- No take 1 Acce ss 1 mg tablet 09-27 tablet (1 [facility] alth 00:00: 00:00 mg) by 00 :00 oral route 2 times per day bumetanide 2020-0 2020- No take 1 Acce ss 1 mg tablet 09-27 tablet (1 [facility] alth 00:00: 00:00 mg) by 00 :00 oral route 2 times per day bumetanide 2020-0 2020- No take 1 Acce ss 1 mg tablet 09-27 tablet (1 [facility] alth 00:00: 00:00 mg) by 00 :00 oral route 2 times per day bumetanide 2020-0 2020- No take 1 Acce ss 1 mg tablet 09-27 tablet (1 He alth 00:00: 00:00 mg) by 00 :00 oral route 2 times per day bumetanide 2020-0 2020- No take 1 Acce ss 1 mg tablet 09-27 tablet (1 [facility] alth 00:00: 00:00 mg) by 00 :00 oral route 2 times per day bumetanide 2020-0 2020- No take 1 Acce ss 1 mg tablet 09-27 tablet (1 [facility] alth 00:00: 00:00 mg) by 00 :00 oral route 2 times per day bumetanide 2020-0 2020- No take 1 Acce ss 1 mg tablet 09-27 tablet (1 [facility] alth 00:00: 00:00 mg) by 00 :00 oral route 2 times per day Levemir 2020-0 2020- No inject 50 Acce ss FlexTouch 07-03- Units by [facility] U-100 00:00: 00:00 Subcutaneo Insulin 100 00 :00 us route 2 unit/mL (3 times per mL) day in the subcutaneou morning s pen and evening Levemir 2020-0 2020- No inject 50 Acce ss FlexTouch 07-03-13 Units by [facility] U-100 00:00: 00:00 Subcutaneo Insulin 100 00 :00 us route 2 unit/mL (3 times per mL) day in the subcutaneou morning s pen and evening Levemir 2020-0 2020- No inject 50 Ac[facility] ss FlexTouch 07-03- Units by [facility] U-100 00:00: 00:00 Subcutaneo Insulin 100 00 :00 us route 2 unit/mL (3 times per mL) day in the subcutaneou morning s pen and evening Levemir 2020-0 2020- No inject 50 Acce ss FlexTouch 4-07 08-13 Units by [facility] U-100 00:00: 00:00 Subcutaneo Insulin 100 00 :00 us route 2 unit/mL (3 times per mL) day in the subcutaneou morning s pen and evening Levemir 2020-0 2020- No inject 50 Acce ss FlexTouch 4- 08-13 Units by [facility] U-100 00:00: 00:00 Subcutaneo Insulin 100 00 :00 us route 2 unit/mL (3 times per mL) day in the subcutaneou morning s pen and evening Levemir 2020-0 2020- No inject 50 Acce ss FlexTouch 4- 08-13 Units by [facility] U-100 00:00: 00:00 Subcutaneo Insulin 100 00 :00 us route 2 unit/mL (3 times per mL) day in the subcutaneou morning s pen and evening Levemir 2020-0 2020- No inject 50 Ac[facility] ss FlexTouch 4- 08-13 Units by [facility] U-100 00:00: 00:00 Subcutaneo Insulin 100 00 :00 us route 2 unit/mL (3 times per mL) day in the subcutaneou morning s pen and evening Levemir 2020-0 2020- No inject 50 Acce ss FlexTouch 4-07 08-13 Units by [facility] U-100 00:00: 00:00 Subcutaneo Insulin 100 00 :00 us route 2 unit/mL (3 times per mL) day in the subcutaneou morning s pen and evening Levemir 2020-0 2020- No inject 50 Acce ss FlexTouch 4-07 08-13 Units by [facility] U-100 00:00: 00:00 Subcutaneo Insulin 100 00 :00 us route 2 unit/mL (3 times per mL) day in the subcutaneou morning s pen and evening Levemir 2020-0 2020- No inject 50 Acce ss FlexTouch 4-07 08-13 Units by [facility] U-100 00:00: 00:00 Subcutaneo Insulin 100 00 :00 us route 2 unit/mL (3 times per mL) day in the subcutaneou morning s pen and evening Levemir 2020-0 2020- No inject 50 Acce ss FlexTouch 4-07 08-13 Units by [facility] U-100 00:00: 00:00 Subcutaneo Insulin 100 00 :00 us route 2 unit/mL (3 times per mL) day in the subcutaneou morning s pen and evening Levemir 2020-0 2020- No inject 50 Acce ss FlexTouch 4- 08-13 Units by [facility] U-100 00:00: 00:00 Subcutaneo Insulin 100 00 :00 us route 2 unit/mL (3 times per mL) day in the subcutaneou morning s pen and evening Levemir 2020-0 2020- No inject 50 Acce ss FlexTouch 4- 08-13 Units by [facility] U-100 00:00: 00:00 Subcutaneo Insulin 100 00 :00 us route 2 unit/mL (3 times per mL) day in the subcutaneou morning s pen and evening Levemir 2020-0 2020- No inject 50 Ac[facility] ss FlexTouch 4- 08-13 Units by [facility] U-100 00:00: 00:00 Subcutaneo Insulin 100 00 :00 us route 2 unit/mL (3 times per mL) day in the subcutaneou morning s pen and evening Levemir 2020-0 2020- No inject 50 Acce ss FlexTouch 4-07 08-13 Units by [facility] U-100 00:00: 00:00 Subcutaneo Insulin 100 00 :00 us route 2 unit/mL (3 times per mL) day in the subcutaneou morning s pen and evening Levemir 2020-0 2020- No inject 50 Acce ss FlexTouch 4-07 08-13 Units by [facility] U-100 00:00: 00:00 Subcutaneo Insulin 100 00 :00 us route 2 unit/mL (3 times per mL) day in the subcutaneou morning s pen and evening Levemir 2020-0 2020- No inject 50 Ac[facility] ss FlexTouch 4-07 08-13 Units by [facility] U-100 00:00: 00:00 Subcutaneo Insulin 100 00 :00 us route 2 unit/mL (3 times per mL) day in the subcutaneou morning s pen and evening Humalog 2019-2019- No inject Access KwikPen 07-02 5-10 Units [facility] (U-100) 00:00: 00:00 by Insulin 100 00 :00 Subcutaneo unit/mL us route 3 subcutaneou times per s day on a sliding scale three times a day before meals amlodipine 2019- No take 1 Acce ss 5 mg tablet 07-02 tablet (5 [facility] alth 00:00: 00:00 mg) by 00 :00 oral route once daily atorvastati 2019- No take 1 Acc ess n 80 mg 07-02 tablet by [facility] tablet 00:00: 00:00 Oral route 00 :00 1 time per day carvedilol 2019- No take 1 Acce ss 25 mg 07-02 tablet (25 [facility] tablet 00:00: 00:00 mg) by 00 :00 oral route 2 times per day with food clopidogrel take 1 Acc ess 75 mg 07-02 tablet (75 [facility] tablet 00:00: 00:00 mg) by 00 :00 oral route once daily isosorbide No take 1 Acce ss mononitrate 07-02 tablet (60 [facility] ER 60 mg 00:00: 00:00 mg) by tablet,exte 00 :00 oral route nded once daily release 24 in the hr morning lisinopril 2019- No take 1 Acce ss 40 mg 07-02 tablet (40 [facility] tablet 00:00: 00:00 mg) by 00 :00 oral route once daily metolazone 2019- No take 1 Acce ss 5 mg tablet 07-02 tablet (5 [facility] alth 00:00: 00:00 mg) by 00 :00 oral route once daily Humalog 2019- No inject Access KwikPen 07-02 5-10 Units [facility] (U-100) 00:00: 00:00 by Insulin 100 00 :00 Subcutaneo unit/mL us route 3 subcutaneou times per s day on a sliding scale three times a day before meals amlodipine No take 1 Acce ss 5 mg tablet 07-02 tablet (5 [facility] alth 00:00: 00:00 mg) by 00 :00 oral route once daily atorvastati No take 1 Acc ess n 80 mg 07-02 tablet by [facility] tablet 00:00: 00:00 Oral route 00 :00 1 time per day carvedilol No take 1 Acce ss 25 mg 07-02 tablet (25 [facility] tablet 00:00: 00:00 mg) by 00 :00 oral route 2 times per day with food clopidogrel take 1 Acc ess 75 mg 07-02 tablet (75 [facility] tablet 00:00: 00:00 mg) by 00 :00 oral route once daily isosorbide take 1 Acce ss mononitrate 07-02 tablet (60 [facility] ER 60 mg 00:00: 00:00 mg) by tablet,exte 00 :00 oral route nded once daily release 24 in the hr morning lisinopril take 1 Acce ss 40 mg 07-02 tablet (40 [facility] tablet 00:00: 00:00 mg) by 00 :00 oral route once daily metolazone take 1 Acce ss 5 mg tablet 07-02 tablet (5 [facility] alth 00:00: 00:00 mg) by 00 :00 oral route once daily Humalog inject Access KwikPen 07-02 5-10 Units [facility] (U-100) 00:00: 00:00 by Insulin 100 00 :00 Subcutaneo unit/mL us route 3 subcutaneou times per s day on a sliding scale three times a day before meals amlodipine No take 1 Acce ss 5 mg tablet 07-02 tablet (5 [facility] alth 00:00: 00:00 mg) by 00 :00 oral route once daily atorvastati No take 1 Acc ess n 80 mg 07-02 tablet by [facility] tablet 00:00: 00:00 Oral route 00 :00 1 time per day carvedilol take 1 Acce ss 25 mg 07-02 tablet (25 [facility] tablet 00:00: 00:00 mg) by 00 :00 oral route 2 times per day with food clopidogrel take 1 Acc ess 75 mg 07-02 tablet (75 [facility] tablet 00:00: 00:00 mg) by 00 :00 oral route once daily isosorbide take 1 Acce ss mononitrate 07-02 tablet (60 [facility] ER 60 mg 00:00: 00:00 mg) by tablet,exte 00 :00 oral route nded once daily release 24 in the hr morning lisinopril take 1 Acce ss 40 mg 07-02 tablet (40 [facility] tablet 00:00: 00:00 mg) by 00 :00 oral route once daily metolazone take 1 Acce ss 5 mg tablet 07-02 tablet (5 [facility] alth 00:00: 00:00 mg) by 00 :00 oral route once daily Humalog inject Access KwikPen 07-02 5-10 Units [facility] (U-100) 00:00: 00:00 by Insulin 100 00 :00 Subcutaneo unit/mL us route 3 subcutaneou times per s day on a sliding scale three times a day before meals amlodipine take 1 Acce ss 5 mg tablet 07-02 tablet (5 [facility] alth 00:00: 00:00 mg) by 00 :00 oral route once daily atorvastati take 1 Acc ess n 80 mg 07-02 tablet by [facility] tablet 00:00: 00:00 Oral route 00 :00 1 time per day carvedilol take 1 Acce ss 25 mg 07-02 tablet (25 [facility] tablet 00:00: 00:00 mg) by 00 :00 oral route 2 times per day with food clopidogrel take 1 Acc ess 75 mg 07-02 tablet (75 [facility] tablet 00:00: 00:00 mg) by 00 :00 oral route once daily isosorbide take 1 [facility] ss mononitrate 07-02 tablet (60 [facility] ER 60 mg 00:00: 00:00 mg) by tablet,exte 00 :00 oral route nded once daily release 24 in the hr morning lisinopril take 1 Acce ss 40 mg 07-02 tablet (40 [facility] tablet 00:00: 00:00 mg) by 00 :00 oral route once daily metolazone take 1 Acce ss 5 mg tablet 07-02 tablet (5 [facility] alth 00:00: 00:00 mg) by 00 :00 oral route once daily Humalog inject Access KwikPen 07-02 5-10 Units [facility] (U-100) 00:00: 00:00 by Insulin 100 00 :00 Subcutaneo unit/mL us route 3 subcutaneou times per s day on a sliding scale three times a day before meals amlodipine take 1 Acce ss 5 mg tablet 07-02 tablet (5 [facility] alth 00:00: 00:00 mg) by 00 :00 oral route once daily atorvastati take 1 Acc ess n 80 mg 07-02 tablet by [facility] tablet 00:00: 00:00 Oral route 00 :00 1 time per day carvedilol take 1 Ac[facility] ss 25 mg 07-02 tablet (25 [facility] tablet 00:00: 00:00 mg) by 00 :00 oral route 2 times per day with food clopidogrel take 1 Acc ess 75 mg 07-02 tablet (75 [facility] tablet 00:00: 00:00 mg) by 00 :00 oral route once daily isosorbide take 1 Ac[facility] ss mononitrate 07-02 tablet (60 [facility] ER 60 mg 00:00: 00:00 mg) by tablet,exte 00 :00 oral route nded once daily release 24 in the hr morning lisinopril take 1 Ac[facility] ss 40 mg 07-02 tablet (40 [facility] tablet 00:00: 00:00 mg) by 00 :00 oral route once daily metolazone No take 1 Ac[facility] ss 5 mg tablet 07-02 tablet (5 [facility] alth 00:00: 00:00 mg) by 00 :00 oral route once daily Humalog No inject Access KwikPen 07-02 5-10 Units [facility] (U-100) 00:00: 00:00 by Insulin 100 00 :00 Subcutaneo unit/mL us route 3 subcutaneou times per s day on a sliding scale three times a day before meals amlodipine take 1 Acce ss 5 mg tablet 07-02 tablet (5 [facility] alth 00:00: 00:00 mg) by 00 :00 oral route once daily atorvastati take 1 Acc ess n 80 mg 07-02 tablet by [facility] tablet 00:00: 00:00 Oral route 00 :00 1 time per day carvedilol take 1 Ac[facility] ss 25 mg 07-02 tablet (25 [facility] tablet 00:00: 00:00 mg) by 00 :00 oral route 2 times per day with food clopidogrel take 1 Acc ess 75 mg 07-02 tablet (75 [facility] tablet 00:00: 00:00 mg) by 00 :00 oral route once daily isosorbide take 1 Ac[facility] ss mononitrate 07-02 tablet (60 [facility] ER 60 mg 00:00: 00:00 mg) by tablet,exte 00 :00 oral route nded once daily release 24 in the hr morning lisinopril take 1 Ac[facility] ss 40 mg 07-02 tablet (40 [facility] tablet 00:00: 00:00 mg) by 00 :00 oral route once daily metolazone take 1 Ac[facility] ss 5 mg tablet 07-02 tablet (5 [facility] alth 00:00: 00:00 mg) by 00 :00 oral route once daily Humalog inject Access KwikPen 07-02 5-10 Units [facility] (U-100) 00:00: 00:00 by Insulin 100 00 :00 Subcutaneo unit/mL us route 3 subcutaneou times per s day on a sliding scale three times a day before meals amlodipine 2019- No take 1 Ac[facility] 5 mg tablet 07-02 tablet (5 [facility] alth 00:00: 00:00 mg) by 00 :00 oral route once daily atorvastati 2019- No take 1 Acc ess n 80 mg 07-02 tablet by [facility] tablet 00:00: 00:00 Oral route 00 :00 1 time per day carvedilol take 1 Ac[facility] ss 25 mg 07-02 tablet (25 [facility] tablet 00:00: 00:00 mg) by 00 :00 oral route 2 times per day with food clopidogrel take 1 Acc ess 75 mg 07-02 tablet (75 [facility] tablet 00:00: 00:00 mg) by 00 :00 oral route once daily isosorbide take 1 Ac[facility] mononitrate 07-02 tablet (60 [facility] ER 60 mg 00:00: 00:00 mg) by tablet,exte 00 :00 oral route nded once daily release 24 in the hr morning lisinopril take 1 [facility] 40 mg 07-02 tablet (40 [facility] tablet 00:00: 00:00 mg) by 00 :00 oral route once daily metolazone take 1 [facility] 5 mg tablet 07-02 tablet (5 [facility] 00:00: 00:00 mg) by 00 :00 oral route once daily Humalog inject Access KwikPen 07-02 5-10 Units [facility] (U-100) 00:00: 00:00 by Insulin 100 00 :00 Subcutaneo unit/mL us route 3 subcutaneou times per s day on a sliding scale three times a day before meals amlodipine No take 1 [facility] 5 mg tablet 07-02 tablet (5 [facility] 00:00: 00:00 mg) by 00 :00 oral route once daily atorvastati No take 1 Acc ess n 80 mg 07-02 tablet by [facility] tablet 00:00: 00:00 Oral route 00 :00 1 time per day carvedilol 2019- No take 1 [facility] 25 mg 07-02 tablet (25 [facility] tablet 00:00: 00:00 mg) by 00 :00 oral route 2 times per day with food clopidogrel No take 1 Acc ess 75 mg 07-02 tablet (75 [facility] tablet 00:00: 00:00 mg) by 00 :00 oral route once daily isosorbide take 1 [facility] mononitrate 07-02 tablet (60 [facility] 60 mg 00:00: 00:00 mg) by tablet,exte 00 :00 oral route nded once daily release 24 in the hr morning lisinopril take 1 Ac[facility] ss 40 mg 07-02 tablet (40 [facility] tablet 00:00: 00:00 mg) by 00 :00 oral route once daily metolazone take 1 [facility] 5 mg tablet 07-02 tablet (5 [facility] 00:00: 00:00 mg) by 00 :00 oral route once daily Humalog inject Access KwikPen 07-02 5-10 Units [facility] (U-100) 00:00: 00:00 by Insulin 100 00 :00 Subcutaneo unit/mL us route 3 subcutaneou times per s day on a sliding scale three times a day before meals amlodipine No take 1 [facility] 5 mg tablet 07-02 tablet (5 [facility] 00:00: 00:00 mg) by 00 :00 oral route once daily atorvastati take 1 Acc ess n 80 mg 07-02 tablet by [facility] tablet 00:00: 00:00 Oral route 00 :00 1 time per day carvedilol 2019- No take 1 [facility] 25 mg 07-02 tablet (25 [facility] tablet 00:00: 00:00 mg) by 00 :00 oral route 2 times per day with food clopidogrel No take 1 Acc ess 75 mg 07-02 tablet (75 [facility] tablet 00:00: 00:00 mg) by 00 :00 oral route once daily isosorbide take 1 [facility] mononitrate 07-02 tablet (60 [facility] 60 mg 00:00: 00:00 mg) by tablet,exte 00 :00 oral route nded once daily release 24 in the hr morning lisinopril take 1 [facility] ss 40 mg 07-02 tablet (40 [facility] tablet 00:00: 00:00 mg) by 00 :00 oral route once daily metolazone take 1 [facility] 5 mg tablet 07-02 tablet (5 [facility] 00:00: 00:00 mg) by 00 :00 oral route once daily Humalog inject Access KwikPen 07-02 5-10 Units [facility] (U-100) 00:00: 00:00 by Insulin 100 00 :00 Subcutaneo unit/mL us route 3 subcutaneou times per s day on a sliding scale three times a day before meals amlodipine take 1 [facility] 5 mg tablet 07-02 tablet (5 [facility] 00:00: 00:00 mg) by 00 :00 oral route once daily atorvastati take 1 Acc ess n 80 mg 07-02 tablet by [facility] tablet 00:00: 00:00 Oral route 00 :00 1 time per day carvedilol take 1 [facility] 25 mg 07-02 tablet (25 [facility] tablet 00:00: 00:00 mg) by 00 :00 oral route 2 times per day with food clopidogrel take 1 Acc ess 75 mg 07-02 tablet (75 [facility] tablet 00:00: 00:00 mg) by 00 :00 oral route once daily isosorbide take 1 [facility] mononitrate 07-02 tablet (60 [facility] 60 mg 00:00: 00:00 mg) by tablet,exte 00 :00 oral route nded once daily release 24 in the hr morning lisinopril take 1 [facility] ss 40 mg 07-02 tablet (40 [facility] tablet 00:00: 00:00 mg) by 00 :00 oral route once daily metolazone 2019- No take 1 [facility] 5 mg tablet 07-02 tablet (5 [facility] 00:00: 00:00 mg) by 00 :00 oral route once daily Humalog No inject Access KwikPen 07-02 5-10 Units [facility] (U-100) 00:00: 00:00 by Insulin 100 00 :00 Subcutaneo unit/mL us route 3 subcutaneou times per s day on a sliding scale three times a day before meals amlodipine No take 1 [facility] 5 mg tablet 07-02 tablet (5 [facility] 00:00: 00:00 mg) by 00 :00 oral route once daily atorvastati No take 1 Acc ess n 80 mg 07-02 tablet by [facility] tablet 00:00: 00:00 Oral route 00 :00 1 time per day carvedilol take 1 [facility] ss 25 mg 07-02 tablet (25 [facility] tablet 00:00: 00:00 mg) by 00 :00 oral route 2 times per day with food clopidogrel take 1 Acc ess 75 mg 07-02 tablet (75 [facility] tablet 00:00: 00:00 mg) by 00 :00 oral route once daily isosorbide No take 1 [facility] mononitrate 07-02 tablet (60 [facility] 60 mg 00:00: 00:00 mg) by tablet,exte 00 :00 oral route nded once daily release 24 in the hr morning lisinopril 2019- take 1 [facility] 40 mg 07-02 tablet (40 [facility] tablet 00:00: 00:00 mg) by 00 :00 oral route once daily metolazone take 1 [facility] 5 mg tablet 07-02 tablet (5 [facility] 00:00: 00:00 mg) by 00 :00 oral route once daily Humalog No inject Access KwikPen 07-02 5-10 Units [facility] (U-100) 00:00: 00:00 by Insulin 100 00 :00 Subcutaneo unit/mL us route 3 subcutaneou times per s day on a sliding scale three times a day before meals amlodipine take 1 [facility] 5 mg tablet 07-02 tablet (5 [facility] 00:00: 00:00 mg) by 00 :00 oral route once daily atorvastati 2019- No take 1 Acc ess n 80 mg 07-02 tablet by [facility] tablet 00:00: 00:00 Oral route 00 :00 1 time per day carvedilol take 1 [facility] 25 mg 07-02 tablet (25 [facility] tablet 00:00: 00:00 mg) by 00 :00 oral route 2 times per day with food clopidogrel take 1 Acc ess 75 mg 07-02 tablet (75 [facility] tablet 00:00: 00:00 mg) by 00 :00 oral route once daily isosorbide take 1 [facility] mononitrate 07-02 tablet (60 [facility] 60 mg 00:00: 00:00 mg) by tablet,exte 00 :00 oral route nded once daily release 24 in the hr morning lisinopril take 1 [facility] ss 40 mg 07-02 tablet (40 [facility] tablet 00:00: 00:00 mg) by 00 :00 oral route once daily metolazone take 1 [facility] 5 mg tablet 07-02 tablet (5 [facility] 00:00: 00:00 mg) by 00 :00 oral route once daily Humalog inject Access KwikPen 07-02 5-10 Units [facility] (U-100) 00:00: 00:00 by Insulin 100 00 :00 Subcutaneo unit/mL us route 3 subcutaneou times per s day on a sliding scale three times a day before meals amlodipine No take 1 [facility] 5 mg tablet 07-02 tablet (5 [facility] 00:00: 00:00 mg) by 00 :00 oral route once daily atorvastati No take 1 Acc ess n 80 mg 07-02 tablet by [facility] tablet 00:00: 00:00 Oral route 00 :00 1 time per day carvedilol 2019- No take 1 [facility] 25 mg 07-02 tablet (25 [facility] tablet 00:00: 00:00 mg) by 00 :00 oral route 2 times per day with food clopidogrel No take 1 Acc ess 75 mg 07-02 tablet (75 [facility] tablet 00:00: 00:00 mg) by 00 :00 oral route once daily isosorbide take 1 [facility] mononitrate 07-02 tablet (60 [facility] 60 mg 00:00: 00:00 mg) by tablet,exte 00 :00 oral route nded once daily release 24 in the hr morning lisinopril take 1 [facility] ss 40 mg 07-02 tablet (40 [facility] tablet 00:00: 00:00 mg) by 00 :00 oral route once daily metolazone take 1 [facility] 5 mg tablet 07-02 tablet (5 [facility] 00:00: 00:00 mg) by 00 :00 oral route once daily Humalog inject Access KwikPen 07-02 5-10 Units [facility] (U-100) 00:00: 00:00 by Insulin 100 00 :00 Subcutaneo unit/mL us route 3 subcutaneou times per s day on a sliding scale three times a day before meals amlodipine No take 1 [facility] 5 mg tablet 07-02 tablet (5 [facility] 00:00: 00:00 mg) by 00 :00 oral route once daily atorvastati take 1 Acc ess n 80 mg 07-02 tablet by [facility] tablet 00:00: 00:00 Oral route 00 :00 1 time per day carvedilol 2019- No take 1 [facility] 25 mg 07-02 tablet (25 [facility] tablet 00:00: 00:00 mg) by 00 :00 oral route 2 times per day with food clopidogrel No take 1 Acc ess 75 mg 07-02 tablet (75 [facility] tablet 00:00: 00:00 mg) by 00 :00 oral route once daily isosorbide take 1 [facility] mononitrate 07-02 tablet (60 [facility] 60 mg 00:00: 00:00 mg) by tablet,exte 00 :00 oral route nded once daily release 24 in the hr morning lisinopril take 1 [facility] 40 mg 07-02 tablet (40 [facility] tablet 00:00: 00:00 mg) by 00 :00 oral route once daily metolazone take 1 [facility] 5 mg tablet 07-02 tablet (5 [facility] 00:00: 00:00 mg) by 00 :00 oral route once daily Humalog inject Access KwikPen 07-02 5-10 Units [facility] (U-100) 00:00: 00:00 by Insulin 100 00 :00 Subcutaneo unit/mL us route 3 subcutaneou times per s day on a sliding scale three times a day before meals amlodipine take 1 [facility] 5 mg tablet 07-02 tablet (5 [facility] 00:00: 00:00 mg) by 00 :00 oral route once daily atorvastati take 1 Acc ess n 80 mg 07-02 tablet by [facility] tablet 00:00: 00:00 Oral route 00 :00 1 time per day carvedilol take 1 [facility] 25 mg 07-02 tablet (25 [facility] tablet 00:00: 00:00 mg) by 00 :00 oral route 2 times per day with food clopidogrel take 1 Acc ess 75 mg 07-02 tablet (75 [facility] tablet 00:00: 00:00 mg) by 00 :00 oral route once daily isosorbide take 1 [facility] mononitrate 07-02 tablet (60 [facility] 60 mg 00:00: 00:00 mg) by tablet,exte 00 :00 oral route nded once daily release 24 in the hr morning lisinopril take 1 [facility] ss 40 mg 07-02 tablet (40 [facility] tablet 00:00: 00:00 mg) by 00 :00 oral route once daily metolazone 2019- No take 1 [facility] 5 mg tablet 07-02 tablet (5 [facility] 00:00: 00:00 mg) by 00 :00 oral route once daily Humalog 2019- No inject Access KwikPen 07-02 5-10 Units [facility] (U-100) 00:00: 00:00 by Insulin 100 00 :00 Subcutaneo unit/mL us route 3 subcutaneou times per s day on a sliding scale three times a day before meals amlodipine 2019- No take 1 [facility] 5 mg tablet 07-02 tablet (5 [facility] 00:00: 00:00 mg) by 00 :00 oral route once daily atorvastati 2019- No take 1 Acc ess n 80 mg 07-02 tablet by [facility] tablet 00:00: 00:00 Oral route 00 :00 1 time per day carvedilol 2019- No take 1 [facility] ss 25 mg 07-02 tablet (25 [facility] tablet 00:00: 00:00 mg) by 00 :00 oral route 2 times per day with food clopidogrel take 1 Acc ess 75 mg 07-02 tablet (75 [facility] tablet 00:00: 00:00 mg) by 00 :00 oral route once daily isosorbide 2019- No take 1 [facility] mononitrate 07-02 tablet (60 [facility] 60 mg 00:00: 00:00 mg) by tablet,exte 00 :00 oral route nded once daily release 24 in the hr morning lisinopril 2019- No take 1 [facility] 40 mg 07-02 tablet (40 [facility] tablet 00:00: 00:00 mg) by 00 :00 oral route once daily metolazone 2019- No take 1 [facility] 5 mg tablet 07-02 tablet (5 [facility] 00:00: 00:00 mg) by 00 :00 oral route once daily Humalog 2019- No inject Access KwikPen 07-02 5-10 Units [facility] (U-100) 00:00: 00:00 by Insulin 100 00 :00 Subcutaneo unit/mL us route 3 subcutaneou times per s day on a sliding scale three times a day before meals amlodipine No take 1 [facility] 5 mg tablet 07-02 tablet (5 [facility] 00:00: 00:00 mg) by 00 :00 oral route once daily atorvastati No take 1 Acc ess n 80 mg 07-02 tablet by [facility] tablet 00:00: 00:00 Oral route 00 :00 1 time per day carvedilol take 1 [facility] ss 25 mg 07-02 tablet (25 [facility] tablet 00:00: 00:00 mg) by 00 :00 oral route 2 times per day with food clopidogrel take 1 Acc ess 75 mg 07-02 tablet (75 [facility] tablet 00:00: 00:00 mg) by 00 :00 oral route once daily isosorbide take 1 [facility] mononitrate 07-02 tablet (60 [facility] 60 mg 00:00: 00:00 mg) by tablet,exte 00 :00 oral route nded once daily release 24 in the hr morning lisinopril take 1 [facility] ss 40 mg 07-02 tablet (40 [facility] tablet 00:00: 00:00 mg) by 00 :00 oral route once daily metolazone No take 1 [facility] 5 mg tablet 07-02 tablet (5 [facility] 00:00: 00:00 mg) by 00 :00 oral route once daily bumetanide 2019- No take 1 [facility] 1 mg tablet 07-02 tablet (1 [facility] 00:00: 00:00 mg) by 00 :00 oral route 2 times per day bumetanide 2019- No take 1 [facility] 1 mg tablet 07-02 tablet (1 [facility] 00:00: 00:00 mg) by 00 :00 oral route 2 times per day bumetanide 2019- No take 1 [facility] ss 1 mg tablet 07-02 tablet (1 [facility] 00:00: 00:00 mg) by 00 :00 oral route 2 times per day bumetanide 2019-0 2020- No take 1 [facility] ss 1 mg tablet 07-02 tablet (1 [facility] 00:00: 00:00 mg) by 00 :00 oral route 2 times per day bumetanide 2019-0 2020- No take 1 [facility] ss 1 mg tablet 07-02 tablet (1 [facility] 00:00: 00:00 mg) by 00 :00 oral route 2 times per day bumetanide 2019-0 2020- No take 1 Ac[facility] ss 1 mg tablet 07-02 tablet (1 [facility] 00:00: 00:00 mg) by 00 :00 oral route 2 times per day bumetanide 2019-0 2020- No take 1 Ac[facility] ss 1 mg tablet 07-02 tablet (1 [facility] 00:00: 00:00 mg) by 00 :00 oral route 2 times per day bumetanide 2019-0 2019- No take 1 Ac[facility] ss 1 mg tablet 07-02 tablet (1 [facility] 00:00: 00:00 mg) by 00 :00 oral route 2 times per day bumetanide 2019-0 2020- No take 1 Ac[facility] ss 1 mg tablet 07-02 tablet (1 [facility] 00:00: 00:00 mg) by 00 :00 oral route 2 times per day bumetanide 2019-0 2020- No take 1 [facility] ss 1 mg tablet 07-02 tablet (1 [facility] 00:00: 00:00 mg) by 00 :00 oral route 2 times per day bumetanide 2019-0 2020- No take 1 Ac[facility] ss 1 mg tablet 07-02 tablet (1 [facility] 00:00: 00:00 mg) by 00 :00 oral route 2 times per day bumetanide 2019-0 2020- No take 1 Ac[facility] ss 1 mg tablet 07-02 tablet (1 [facility] 00:00: 00:00 mg) by 00 :00 oral route 2 times per day bumetanide 2020-0 2020- No take 1 Ac[facility] ss 1 mg tablet 07-02 tablet (1 [facility] 00:00: 00:00 mg) by 00 :00 oral route 2 times per day bumetanide 2020-0 2020- No take 1 Ac[facility] ss 1 mg tablet 07-02 tablet (1 [facility] 00:00: 00:00 mg) by 00 :00 oral route 2 times per day bumetanide 2020-0 2020- No take 1 Ac[facility] ss 1 mg tablet 07-02 tablet (1 [facility] 00:00: 00:00 mg) by 00 :00 oral route 2 times per day bumetanide 2019-0 2020- No take 1 Ac[facility] ss 1 mg tablet 07-02 tablet (1 [facility] 00:00: 00:00 mg) by 00 :00 oral route 2 times per day bumetanide 2020-0 2020- No take 1 Ac[facility] ss 1 mg tablet 07-02 tablet (1 [facility] 00:00: 00:00 mg) by 00 :00 oral route 2 times per day Levemir 2019-0 2020- No inject 34 [facility] FlexTouch 4 04-07 Units by [facility] U-100 00:00: 00:00 Subcutaneo Insulin 100 00 :00 us route 2 unit/mL (3 times per mL) day in the subcutaneou morning s pen and evening Levemir 2019-0 2020- No inject 34 [facility] FlexTouch 4-06 04-07 Units by [facility] U-100 00:00: 00:00 Subcutaneo Insulin 100 00 :00 us route 2 unit/mL (3 times per mL) day in the subcutaneou morning s pen and evening Levemir 2020-0 2020- No inject 34 [facility] FlexTouch 4-06 04-07 Units by [facility] U-100 00:00: 00:00 Subcutaneo Insulin 100 00 :00 us route 2 unit/mL (3 times per mL) day in the subcutaneou morning s pen and evening Levemir 2020-0 2020- No inject 34 [facility] FlexTouch 4-06 04-07 Units by [facility] U-100 00:00: 00:00 Subcutaneo Insulin 100 00 :00 us route 2 unit/mL (3 times per mL) day in the subcutaneou morning s pen and evening Levemir 2020-0 2020- No inject 34 [facility] FlexTouch 4-06 04-07 Units by [facility] U-100 00:00: 00:00 Subcutaneo Insulin 100 00 :00 us route 2 unit/mL (3 times per mL) day in the subcutaneou morning s pen and evening Levemir 2020-0 2020- No inject 34 [facility] FlexTouch 4-06 04-07 Units by [facility] U-100 00:00: 00:00 Subcutaneo Insulin 100 00 :00 us route 2 unit/mL (3 times per mL) day in the subcutaneou morning s pen and evening Levemir 2020- No inject 34 [facility] FlexTouch 4-06 04-07 Units by [facility] U-100 00:00: 00:00 Subcutaneo Insulin 100 00 :00 us route 2 unit/mL (3 times per mL) day in the subcutaneou morning s pen and evening Levemir 2019- 2020- No inject 34 [facility] ss FlexTouch 4-06 04-07 Units by [facility] U-100 00:00: 00:00 Subcutaneo Insulin 100 00 :00 us route 2 unit/mL (3 times per mL) day in the subcutaneou morning s pen and evening Levemir 2020- No inject 34 [facility] ss FlexTouch 4-06 04-07 Units by [facility] U-100 00:00: 00:00 Subcutaneo Insulin 100 00 :00 us route 2 unit/mL (3 times per mL) day in the subcutaneou morning s pen and evening Levemir 2019- 2020- No inject 34 [facility] ss FlexTouch 4-06 04-07 Units by [facility] U-100 00:00: 00:00 Subcutaneo Insulin 100 00 :00 us route 2 unit/mL (3 times per mL) day in the subcutaneou morning s pen and evening Levemir 2020-0 2020- No inject 34 [facility] ss FlexTouch 4-06 04-07 Units by [facility] U-100 00:00: 00:00 Subcutaneo Insulin 100 00 :00 us route 2 unit/mL (3 times per mL) day in the subcutaneou morning s pen and evening Levemir 2020- 2020- No inject 34 [facility] ss FlexTouch 4-06 04-07 Units by [facility] U-100 00:00: 00:00 Subcutaneo Insulin 100 00 :00 us route 2 unit/mL (3 times per mL) day in the subcutaneou morning s pen and evening Levemir 2020-0 2020- No inject 34 [facility] ss FlexTouch 4-06 04-07 Units by [facility] U-100 00:00: 00:00 Subcutaneo Insulin 100 00 :00 us route 2 unit/mL (3 times per mL) day in the subcutaneou morning s pen and evening Levemir 2019-0 2020- No inject 34 [facility] ss FlexTouch 4-06 04-07 Units by [facility] U-100 00:00: 00:00 Subcutaneo Insulin 100 00 :00 us route 2 unit/mL (3 times per mL) day in the subcutaneou morning s pen and evening Levemir 2019-0 2020- No inject 34 [facility] FlexTouch 4-06 04-07 Units by [facility] U-100 00:00: 00:00 Subcutaneo Insulin 100 00 :00 us route 2 unit/mL (3 times per mL) day in the subcutaneou morning s pen and evening Levemir 2019-0 2020- No inject 34 [facility] FlexTouch 4-06 04-07 Units by [facility] U-100 00:00: 00:00 Subcutaneo Insulin 100 00 :00 us route 2 unit/mL (3 times per mL) day in the subcutaneou morning s pen and evening Levemir 2020-0 2020- No inject 34 [facility] ss FlexTouch 4-06 04-07 Units by [facility] U-100 00:00: 00:00 Subcutaneo Insulin 100 00 :00 us route 2 unit/mL (3 times per mL) day in the subcutaneou morning s pen and evening bumetanide 2019-0 2020- No take 1 d/c lasix Access 1 mg tablet 05-09- tablet (1 [facility] 00:00: 00:00 mg) by 00 :00 oral route 2 times per day bumetanide 2019-0 2020- No take 1 d/c lasix Access 1 mg tablet 05-09- tablet (1 [facility] 00:00: 00:00 mg) by 00 :00 oral route 2 times per day bumetanide 2019-2019- No take 1 d/c lasix Access 1 mg tablet 2-06 tablet (1 [facility] 00:00: 00:00 mg) by 00 :00 oral route 2 times per day bumetanide 2019-2019- No take 1 d/c lasix Access 1 mg tablet 2-06 tablet (1 [facility] 00:00: 00:00 mg) by 00 :00 oral route 2 times per day bumetanide 2019- No take 1 d/c lasix Access 1 mg tablet 05-09-06 tablet (1 [facility] 00:00: 00:00 mg) by 00 :00 oral route 2 times per day bumetanide 2019-2019- No take 1 d/c lasix Access 1 mg tablet 05-09- tablet (1 [facility] 00:00: 00:00 mg) by 00 :00 oral route 2 times per day bumetanide 2019- No take 1 d/c lasix Access 1 mg tablet 05-09- tablet (1 [facility] 00:00: 00:00 mg) by 00 :00 oral route 2 times per day bumetanide 2019-2019- No take 1 d/c lasix Access 1 mg tablet 05-09-06 tablet (1 [facility] 00:00: 00:00 mg) by 00 :00 oral route 2 times per day bumetanide 2019-2019- No take 1 d/c lasix Access 1 mg tablet 05-09-06 tablet (1 [facility] 00:00: 00:00 mg) by 00 :00 oral route 2 times per day bumetanide 2019-2019- No take 1 d/c lasix Access 1 mg tablet 2-06 tablet (1 [facility] 00:00: 00:00 mg) by 00 :00 oral route 2 times per day bumetanide 2019-2019- No take 1 d/c lasix Access 1 mg tablet 2-06 tablet (1 [facility] 00:00: 00:00 mg) by 00 :00 oral route 2 times per day bumetanide 2019-2019- No take 1 d/c lasix Access 1 mg tablet 2-06 tablet (1 [facility] 00:00: 00:00 mg) by 00 :00 oral route 2 times per day bumetanide 2019-0 2019- No take 1 d/c lasix Access 1 mg tablet 05-09 tablet (1 [facility] 00:00: 00:00 mg) by 00 :00 oral route 2 times per day bumetanide 2019-0 2019- No take 1 d/c lasix Access 1 mg tablet 05-09 tablet (1 [facility] 00:00: 00:00 mg) by 00 :00 oral route 2 times per day bumetanide 2019-0 2019- No take 1 d/c lasix Access 1 mg tablet 05-09 tablet (1 [facility] 00:00: 00:00 mg) by 00 :00 oral route 2 times per day bumetanide 2019-0 2019- No take 1 d/c lasix Access 1 mg tablet 05-09 tablet (1 [facility] 00:00: 00:00 mg) by 00 :00 oral route 2 times per day bumetanide 2019-2019- No take 1 d/c lasix Access 1 mg tablet 05-09 tablet (1 [facility] 00:00: 00:00 mg) by 00 :00 oral route 2 times per day metolazone 2019-2019- No take 1 Ac[facility] ss 5 mg tablet 04-04 tablet (5 [facility] 00:00: 00:00 mg) by 00 :00 oral route once daily Levemir 2019- No inject 34 [facility] FlexTouch 04-04- Units by [facility] U-100 00:00: 00:00 Subcutaneo Insulin 100 00 :00 us route 2 unit/mL (3 times per mL) day in the subcutaneou morning s pen and evening Humalog 2019-2019- No inject Access KwikPen 04-04-06 5-10 Units [facility] (U-100) 00:00: 00:00 by Insulin 100 00 :00 Subcutaneo unit/mL us route 3 subcutaneou times per s day on a sliding scale three times a day before meals amlodipine 2019- No take 1 Ac[facility] ss 5 mg tablet 04-04 tablet (5 [facility] 00:00: 00:00 mg) by 00 :00 oral route once daily atorvastati take 1 Acc ess n 80 mg 04-04 tablet by [facility] tablet 00:00: 00:00 Oral route 00 :00 1 time per day carvedilol take 1 Acce ss 25 mg 04-04 tablet (25 [facility] tablet 00:00: 00:00 mg) by 00 :00 oral route 2 times per day with food clopidogrel take 1 Acc ess 75 mg 04-04 tablet (75 [facility] tablet 00:00: 00:00 mg) by 00 :00 oral route once daily isosorbide take 1 [facility] mononitrate 04-04 tablet (60 [facility] 60 mg 00:00: 00:00 mg) by tablet,exte 00 :00 oral route nded once daily release 24 in the hr morning lisinopril take 1 Ac[facility] ss 40 mg 04-04 tablet (40 [facility] tablet 00:00: 00:00 mg) by 00 :00 oral route once daily metolazone take 1 Ac[facility] ss 5 mg tablet 04-04 tablet (5 [facility] 00:00: 00:00 mg) by 00 :00 oral route once daily Levemir inject 34 [facility] ss FlexTouch 04-04 Units by [facility] U-100 00:00: 00:00 Subcutaneo Insulin 100 00 :00 us route 2 unit/mL (3 times per mL) day in the subcutaneou morning s pen and evening Humalog inject Access KwikPen 04-04 5-10 Units [facility] (U-100) 00:00: 00:00 by Insulin 100 00 :00 Subcutaneo unit/mL us route 3 subcutaneou times per s day on a sliding scale three times a day before meals amlodipine take 1 Ac[facility] ss 5 mg tablet 04-04 tablet (5 [facility] 00:00: 00:00 mg) by 00 :00 oral route once daily atorvastati take 1 Acc ess n 80 mg 04-04 tablet by Health tablet 00:00: 00:00 Oral route 00 :00 1 time per day carvedilol No take 1 Acce ss 25 mg 04-04 tablet (25 [facility] tablet 00:00: 00:00 mg) by 00 :00 oral route 2 times per day with food clopidogrel take 1 Acc ess 75 mg 04-04 tablet (75 [facility] tablet 00:00: 00:00 mg) by 00 :00 oral route once daily isosorbide take 1 [facility] mononitrate 04-04 tablet (60 [facility] ER 60 mg 00:00: 00:00 mg) by tablet,exte 00 :00 oral route nded once daily release 24 in the hr morning lisinopril take 1 Ac[facility] ss 40 mg 04-04 tablet (40 [facility] tablet 00:00: 00:00 mg) by 00 :00 oral route once daily metolazone take 1 Ac[facility] ss 5 mg tablet 04-04 tablet (5 [facility] 00:00: 00:00 mg) by 00 :00 oral route once daily Levemir inject 34 [facility] ss FlexTouch 04-04 Units by [facility] U-100 00:00: 00:00 Subcutaneo Insulin 100 00 :00 us route 2 unit/mL (3 times per mL) day in the subcutaneou morning s pen and evening Humalog inject Access KwikPen 04-04 5-10 Units [facility] (U-100) 00:00: 00:00 by Insulin 100 00 :00 Subcutaneo unit/mL us route 3 subcutaneou times per s day on a sliding scale three times a day before meals amlodipine take 1 Acce ss 5 mg tablet 04-04 tablet (5 [facility] 00:00: 00:00 mg) by 00 :00 oral route once daily atorvastati take 1 Acc ess n 80 mg 04-04 tablet by [facility] tablet 00:00: 00:00 Oral route 00 :00 1 time per day carvedilol take 1 Acce ss 25 mg 04-04 tablet (25 [facility] tablet 00:00: 00:00 mg) by 00 :00 oral route 2 times per day with food clopidogrel take 1 Acc ess 75 mg 04-04 tablet (75 [facility] tablet 00:00: 00:00 mg) by 00 :00 oral route once daily isosorbide take 1 Ac[facility] ss mononitrate 04-04 tablet (60 [facility] ER 60 mg 00:00: 00:00 mg) by tablet,exte 00 :00 oral route nded once daily release 24 in the hr morning lisinopril take 1 Acce ss 40 mg 04-04 tablet (40 [facility] tablet 00:00: 00:00 mg) by 00 :00 oral route once daily metolazone take 1 Acce ss 5 mg tablet 04-04 tablet (5 [facility] al[facility] 00:00: 00:00 mg) by 00 :00 oral route once daily Levemir inject 34 [facility] ss FlexTouch 04-04 Units by [facility] U-100 00:00: 00:00 Subcutaneo Insulin 100 00 :00 us route 2 unit/mL (3 times per mL) day in the subcutaneou morning s pen and evening Humalog No inject Access KwikPen 04-0406 5-10 Units [facility] (U-100) 00:00: 00:00 by Insulin 100 00 :00 Subcutaneo unit/mL us route 3 subcutaneou times per s day on a sliding scale three times a day before meals amlodipine take 1 Acce ss 5 mg tablet 04-04 tablet (5 [facility] 00:00: 00:00 mg) by 00 :00 oral route once daily atorvastati take 1 Acc ess n 80 mg 04-04 tablet by [facility] tablet 00:00: 00:00 Oral route 00 :00 1 time per day carvedilol No take 1 Acce ss 25 mg 04-04 tablet (25 [facility] tablet 00:00: 00:00 mg) by 00 :00 oral route 2 times per day with food clopidogrel No take 1 Acc ess 75 mg 04-04 tablet (75 [facility] tablet 00:00: 00:00 mg) by 00 :00 oral route once daily isosorbide take 1 [facility] mononitrate 04-04 tablet (60 [facility] 60 mg 00:00: 00:00 mg) by tablet,exte 00 :00 oral route nded once daily release 24 in the hr morning lisinopril take 1 Acce ss 40 mg 04-04 tablet (40 [facility] tablet 00:00: 00:00 mg) by 00 :00 oral route once daily metolazone take 1 [facility] ss 5 mg tablet 04-04 tablet (5 [facility] 00:00: 00:00 mg) by 00 :00 oral route once daily Levemir inject 34 [facility] ss FlexTouch 04-04 Units by [facility] U-100 00:00: 00:00 Subcutaneo Insulin 100 00 :00 us route 2 unit/mL (3 times per mL) day in the subcutaneou morning s pen and evening Humalog inject Access KwikPen 04-04 5-10 Units [facility] (U-100) 00:00: 00:00 by Insulin 100 00 :00 Subcutaneo unit/mL us route 3 subcutaneou times per s day on a sliding scale three times a day before meals amlodipine take 1 Ac[facility] ss 5 mg tablet 04-04 tablet (5 [facility] 00:00: 00:00 mg) by 00 :00 oral route once daily atorvastati take 1 Acc ess n 80 mg 04-04 tablet by [facility] tablet 00:00: 00:00 Oral route 00 :00 1 time per day carvedilol take 1 Ac[facility] ss 25 mg 04-04 tablet (25 [facility] tablet 00:00: 00:00 mg) by 00 :00 oral route 2 times per day with food clopidogrel 2020-0 2020- No take 1 Acc ess 75 mg 04-04 tablet (75 [facility] tablet 00:00: 00:00 mg) by 00 :00 oral route once daily isosorbide 2019- No take 1 [facility] ss mononitrate 04-04 tablet (60 [facility] ER 60 mg 00:00: 00:00 mg) by tablet,exte 00 :00 oral route nded once daily release 24 in the hr morning lisinopril take 1 Acce ss 40 mg 04-04 tablet (40 [facility] tablet 00:00: 00:00 mg) by 00 :00 oral route once daily metolazone No take 1 Acce ss 5 mg tablet 04-04 tablet (5 [facility] 00:00: 00:00 mg) by 00 :00 oral route once daily Levemir inject 34 [facility] ss FlexTouch 04-04 Units by [facility] U-100 00:00: 00:00 Subcutaneo Insulin 100 00 :00 us route 2 unit/mL (3 times per mL) day in the subcutaneou morning s pen and evening Humalog inject Access KwikPen 04-04 5-10 Units [facility] (U-100) 00:00: 00:00 by Insulin 100 00 :00 Subcutaneo unit/mL us route 3 subcutaneou times per s day on a sliding scale three times a day before meals amlodipine 2019- No take 1 [facility] ss 5 mg tablet 04-04 tablet (5 [facility] 00:00: 00:00 mg) by 00 :00 oral route once daily atorvastati 2019- No take 1 Acc ess n 80 mg 04-04 tablet by [facility] tablet 00:00: 00:00 Oral route 00 :00 1 time per day carvedilol 2019- No take 1 Acce ss 25 mg 04-04 tablet (25 [facility] tablet 00:00: 00:00 mg) by 00 :00 oral route 2 times per day with food clopidogrel No take 1 Acc ess 75 mg 04-04 tablet (75 [facility] tablet 00:00: 00:00 mg) by 00 :00 oral route once daily isosorbide take 1 Ac[facility] ss mononitrate 04-04 tablet (60 [facility] 60 mg 00:00: 00:00 mg) by tablet,exte 00 :00 oral route nded once daily release 24 in the hr morning lisinopril take 1 Acce ss 40 mg 04-04 tablet (40 [facility] tablet 00:00: 00:00 mg) by 00 :00 oral route once daily metolazone take 1 Acce ss 5 mg tablet 04-04 tablet (5 [facility] 00:00: 00:00 mg) by 00 :00 oral route once daily Levemir inject 34 [facility] ss FlexTouch 04-04 Units by [facility] U-100 00:00: 00:00 Subcutaneo Insulin 100 00 :00 us route 2 unit/mL (3 times per mL) day in the subcutaneou morning s pen and evening Humalog inject Access KwikPen 04-04 5-10 Units [facility] (U-100) 00:00: 00:00 by Insulin 100 00 :00 Subcutaneo unit/mL us route 3 subcutaneou times per s day on a sliding scale three times a day before meals amlodipine take 1 Ac[facility] ss 5 mg tablet 04-04 tablet (5 [facility] 00:00: 00:00 mg) by 00 :00 oral route once daily atorvastati take 1 Acc ess n 80 mg 04-04 tablet by [facility] tablet 00:00: 00:00 Oral route 00 :00 1 time per day carvedilol take 1 Acce ss 25 mg 04-04 tablet (25 [facility] tablet 00:00: 00:00 mg) by 00 :00 oral route 2 times per day with food clopidogrel take 1 Acc ess 75 mg 04-04 tablet (75 [facility] tablet 00:00: 00:00 mg) by 00 :00 oral route once daily isosorbide take 1 Acce ss mononitrate 04-04 tablet (60 [facility] 60 mg 00:00: 00:00 mg) by tablet,exte 00 :00 oral route nded once daily release 24 in the hr morning lisinopril take 1 Acce ss 40 mg 04-04 tablet (40 [facility] tablet 00:00: 00:00 mg) by 00 :00 oral route once daily metolazone take 1 Acce ss 5 mg tablet 04-04 tablet (5 [facility] 00:00: 00:00 mg) by 00 :00 oral route once daily Levemir inject 34 [facility] ss FlexTouch 04-04 Units by [facility] U-100 00:00: 00:00 Subcutaneo Insulin 100 00 :00 us route 2 unit/mL (3 times per mL) day in the subcutaneou morning s pen and evening Humalog inject Access KwikPen 04-04 5-10 Units [facility] (U-100) 00:00: 00:00 by Insulin 100 00 :00 Subcutaneo unit/mL us route 3 subcutaneou times per s day on a sliding scale three times a day before meals amlodipine take 1 Ac[facility] ss 5 mg tablet 04-04 tablet (5 [facility] 00:00: 00:00 mg) by 00 :00 oral route once daily atorvastati take 1 Acc ess n 80 mg 04-04 tablet by [facility] tablet 00:00: 00:00 Oral route 00 :00 1 time per day carvedilol take 1 Acce ss 25 mg 04-04 tablet (25 [facility] tablet 00:00: 00:00 mg) by 00 :00 oral route 2 times per day with food clopidogrel take 1 Acc ess 75 mg 04-04 tablet (75 [facility] tablet 00:00: 00:00 mg) by 00 :00 oral route once daily isosorbide 2019- take 1 Ac[facility] ss mononitrate 04-04 tablet (60 [facility] 60 mg 00:00: 00:00 mg) by tablet,exte 00 :00 oral route nded once daily release 24 in the hr morning lisinopril 2019- No take 1 Ac[facility] ss 40 mg 04-04 tablet (40 [facility] tablet 00:00: 00:00 mg) by 00 :00 oral route once daily metolazone take 1 Acce ss 5 mg tablet 04-04 tablet (5 [facility] 00:00: 00:00 mg) by 00 :00 oral route once daily Levemir inject 34 [facility] ss FlexTouch 04-04 Units by [facility] U-100 00:00: 00:00 Subcutaneo Insulin 100 00 :00 us route 2 unit/mL (3 times per mL) day in the subcutaneou morning s pen and evening Humalog inject Access KwikPen 04-04 5-10 Units [facility] (U-100) 00:00: 00:00 by Insulin 100 00 :00 Subcutaneo unit/mL us route 3 subcutaneou times per s day on a sliding scale three times a day before meals amlodipine take 1 Ac[facility] ss 5 mg tablet 04-04 tablet (5 [facility] 00:00: 00:00 mg) by 00 :00 oral route once daily atorvastati take 1 Acc ess n 80 mg 04-04 tablet by [facility] tablet 00:00: 00:00 Oral route 00 :00 1 time per day carvedilol take 1 Ac[facility] ss 25 mg 04-04 tablet (25 [facility] tablet 00:00: 00:00 mg) by 00 :00 oral route 2 times per day with food clopidogrel take 1 Acc ess 75 mg 04-04 tablet (75 [facility] tablet 00:00: 00:00 mg) by 00 :00 oral route once daily isosorbide take 1 Acce ss mononitrate 04-04 tablet (60 [facility] 60 mg 00:00: 00:00 mg) by tablet,exte 00 :00 oral route nded once daily release 24 in the hr morning lisinopril 2020-0 2020- No take 1 Ac[facility] ss 40 mg 04-04 tablet (40 [facility] tablet 00:00: 00:00 mg) by 00 :00 oral route once daily metolazone No take 1 [facility] ss 5 mg tablet 04-04 tablet (5 [facility] 00:00: 00:00 mg) by 00 :00 oral route once daily Levemir inject 34 [facility] ss FlexTouch 04-04 Units by [facility] U-100 00:00: 00:00 Subcutaneo Insulin 100 00 :00 us route 2 unit/mL (3 times per mL) day in the subcutaneou morning s pen and evening Humalog 2019- No inject Access KwikPen 04-04 5-10 Units [facility] (U-100) 00:00: 00:00 by Insulin 100 00 :00 Subcutaneo unit/mL us route 3 subcutaneou times per s day on a sliding scale three times a day before meals amlodipine 2019- No take 1 [facility] ss 5 mg tablet 04-04 tablet (5 [facility] 00:00: 00:00 mg) by 00 :00 oral route once daily atorvastati 2019- No take 1 Acc ess n 80 mg 04-04 tablet by [facility] tablet 00:00: 00:00 Oral route 00 :00 1 time per day carvedilol 2019- No take 1 Acce ss 25 mg 04-04 tablet (25 [facility] tablet 00:00: 00:00 mg) by 00 :00 oral route 2 times per day with food clopidogrel 2019- No take 1 Acc ess 75 mg 04-04 tablet (75 [facility] tablet 00:00: 00:00 mg) by 00 :00 oral route once daily isosorbide 2019- No take 1 [facility] ss mononitrate 04-04 tablet (60 [facility] 60 mg 00:00: 00:00 mg) by tablet,exte 00 :00 oral route nded once daily release 24 in the hr morning lisinopril 2019- No take 1 Ac[facility] ss 40 mg 04-04 tablet (40 [facility] tablet 00:00: 00:00 mg) by 00 :00 oral route once daily metolazone take 1 Ac[facility] ss 5 mg tablet 04-04 tablet (5 [facility] 00:00: 00:00 mg) by 00 :00 oral route once daily Levemir inject 34 [facility] ss FlexTouch 04-04 Units by [facility] U-100 00:00: 00:00 Subcutaneo Insulin 100 00 :00 us route 2 unit/mL (3 times per mL) day in the subcutaneou morning s pen and evening Humalog inject Access KwikPen 04-04 5-10 Units [facility] (U-100) 00:00: 00:00 by Insulin 100 00 :00 Subcutaneo unit/mL us route 3 subcutaneou times per s day on a sliding scale three times a day before meals amlodipine take 1 Ac[facility] ss 5 mg tablet 04-04 tablet (5 [facility] 00:00: 00:00 mg) by 00 :00 oral route once daily atorvastati take 1 Acc ess n 80 mg 04-04 tablet by [facility] tablet 00:00: 00:00 Oral route 00 :00 1 time per day carvedilol take 1 Acce ss 25 mg 04-04 tablet (25 [facility] tablet 00:00: 00:00 mg) by 00 :00 oral route 2 times per day with food clopidogrel take 1 Acc ess 75 mg 04-04 tablet (75 [facility] tablet 00:00: 00:00 mg) by 00 :00 oral route once daily isosorbide take 1 Ac[facility] ss mononitrate 04-04 tablet (60 [facility] 60 mg 00:00: 00:00 mg) by tablet,exte 00 :00 oral route nded once daily release 24 in the hr morning lisinopril take 1 Acce ss 40 mg 04-04 tablet (40 [facility] tablet 00:00: 00:00 mg) by 00 :00 oral route once daily metolazone take 1 Ac[facility] ss 5 mg tablet 04-04 tablet (5 [facility] 00:00: 00:00 mg) by 00 :00 oral route once daily Levemir inject 34 [facility] ss FlexTouch 04-04 Units by [facility] U-100 00:00: 00:00 Subcutaneo Insulin 100 00 :00 us route 2 unit/mL (3 times per mL) day in the subcutaneou morning s pen and evening Humalog inject Access KwikPen 04-04 5-10 Units [facility] (U-100) 00:00: 00:00 by Insulin 100 00 :00 Subcutaneo unit/mL us route 3 subcutaneou times per s day on a sliding scale three times a day before meals amlodipine No take 1 Ac[facility] ss 5 mg tablet 04-04 tablet (5 [facility] 00:00: 00:00 mg) by 00 :00 oral route once daily atorvastati take 1 Acc ess n 80 mg 04-04 tablet by [facility] tablet 00:00: 00:00 Oral route 00 :00 1 time per day carvedilol take 1 Acce ss 25 mg 04-04 tablet (25 [facility] tablet 00:00: 00:00 mg) by 00 :00 oral route 2 times per day with food clopidogrel take 1 Acc ess 75 mg 04-04 tablet (75 [facility] tablet 00:00: 00:00 mg) by 00 :00 oral route once daily isosorbide take 1 Acce ss mononitrate 04-04 tablet (60 [facility] 60 mg 00:00: 00:00 mg) by tablet,exte 00 :00 oral route nded once daily release 24 in the hr morning lisinopril take 1 Acce ss 40 mg 04-04 tablet (40 [facility] tablet 00:00: 00:00 mg) by 00 :00 oral route once daily metolazone No take 1 [facility] ss 5 mg tablet 04-04 tablet (5 [facility] 00:00: 00:00 mg) by 00 :00 oral route once daily Levemir No inject 34 [facility] ss FlexTouch 04-04-06 Units by [facility] U-100 00:00: 00:00 Subcutaneo Insulin 100 00 :00 us route 2 unit/mL (3 times per mL) day in the subcutaneou morning s pen and evening Humalog 2019- No inject Access KwikPen 04-0406 5-10 Units [facility] (U-100) 00:00: 00:00 by Insulin 100 00 :00 Subcutaneo unit/mL us route 3 subcutaneou times per s day on a sliding scale three times a day before meals amlodipine No take 1 Ac[facility] ss 5 mg tablet 04-04 tablet (5 [facility] 00:00: 00:00 mg) by 00 :00 oral route once daily atorvastati No take 1 Acc ess n 80 mg 04-04 tablet by [facility] tablet 00:00: 00:00 Oral route 00 :00 1 time per day carvedilol take 1 Acce ss 25 mg 04-04 tablet (25 [facility] tablet 00:00: 00:00 mg) by 00 :00 oral route 2 times per day with food clopidogrel take 1 Acc ess 75 mg 04-04 tablet (75 [facility] tablet 00:00: 00:00 mg) by 00 :00 oral route once daily isosorbide No take 1 Ac[facility] ss mononitrate 04-04 tablet (60 [facility] 60 mg 00:00: 00:00 mg) by tablet,exte 00 :00 oral route nded once daily release 24 in the hr morning lisinopril 2019- No take 1 Acce ss 40 mg 04-04 tablet (40 [facility] tablet 00:00: 00:00 mg) by 00 :00 oral route once daily metolazone take 1 Acce ss 5 mg tablet 04-04 tablet (5 [facility] 00:00: 00:00 mg) by 00 :00 oral route once daily Levemir 2019- No inject 34 [facility] ss FlexTouch 04-04 Units by [facility] U-100 00:00: 00:00 Subcutaneo Insulin 100 00 :00 us route 2 unit/mL (3 times per mL) day in the subcutaneou morning s pen and evening Humalog 2019- No inject Access KwikPen 04-04 5-10 Units [facility] (U-100) 00:00: 00:00 by Insulin 100 00 :00 Subcutaneo unit/mL us route 3 subcutaneou times per s day on a sliding scale three times a day before meals amlodipine 2019- No take 1 Ac[facility] ss 5 mg tablet 04-04 tablet (5 [facility] 00:00: 00:00 mg) by 00 :00 oral route once daily atorvastati take 1 Acc ess n 80 mg 04-04 tablet by [facility] tablet 00:00: 00:00 Oral route 00 :00 1 time per day carvedilol 2019- No take 1 Acce ss 25 mg 04-04 tablet (25 [facility] tablet 00:00: 00:00 mg) by 00 :00 oral route 2 times per day with food clopidogrel No take 1 Acc ess 75 mg 04-04 tablet (75 [facility] tablet 00:00: 00:00 mg) by 00 :00 oral route once daily isosorbide No take 1 Ac[facility] ss mononitrate 04-04 tablet (60 [facility] 60 mg 00:00: 00:00 mg) by tablet,exte 00 :00 oral route nded once daily release 24 in the hr morning lisinopril 2019- No take 1 Acce ss 40 mg 04-04 tablet (40 [facility] tablet 00:00: 00:00 mg) by 00 :00 oral route once daily metolazone 2019- No take 1 Ac[facility] ss 5 mg tablet 04-04 tablet (5 [facility] 00:00: 00:00 mg) by 00 :00 oral route once daily Levemir 2019- No inject 34 [facility] ss FlexTouch 04-04 Units by [facility] U-100 00:00: 00:00 Subcutaneo Insulin 100 00 :00 us route 2 unit/mL (3 times per mL) day in the subcutaneou morning s pen and evening Humalog 2019- No inject Access KwikPen 04-0406 5-10 Units [facility] (U-100) 00:00: 00:00 by Insulin 100 00 :00 Subcutaneo unit/mL us route 3 subcutaneou times per s day on a sliding scale three times a day before meals amlodipine 2019- No take 1 Ac[facility] ss 5 mg tablet 04-04 tablet (5 [facility] 00:00: 00:00 mg) by 00 :00 oral route once daily atorvastati 2019- No take 1 Acc ess n 80 mg 04-04 tablet by [facility] tablet 00:00: 00:00 Oral route 00 :00 1 time per day carvedilol 2019- No take 1 Acce ss 25 mg 04-04 tablet (25 [facility] tablet 00:00: 00:00 mg) by 00 :00 oral route 2 times per day with food clopidogrel take 1 Acc ess 75 mg 04-04 tablet (75 [facility] tablet 00:00: 00:00 mg) by 00 :00 oral route once daily isosorbide No take 1 Ac[facility] ss mononitrate 04-04 tablet (60 [facility] 60 mg 00:00: 00:00 mg) by tablet,exte 00 :00 oral route nded once daily release 24 in the hr morning lisinopril 2019- No take 1 Ac[facility] ss 40 mg 04-04 tablet (40 [facility] tablet 00:00: 00:00 mg) by 00 :00 oral route once daily metolazone No take 1 Ac[facility] ss 5 mg tablet 04-04 tablet (5 [facility] 00:00: 00:00 mg) by 00 :00 oral route once daily Levemir inject 34 [facility] ss FlexTouch 04-04 Units by [facility] U-100 00:00: 00:00 Subcutaneo Insulin 100 00 :00 us route 2 unit/mL (3 times per mL) day in the subcutaneou morning s pen and evening Humalog 2019- No inject Access KwikPen 04-0406 5-10 Units [facility] (U-100) 00:00: 00:00 by Insulin 100 00 :00 Subcutaneo unit/mL us route 3 subcutaneou times per s day on a sliding scale three times a day before meals amlodipine 2019- No take 1 Ac[facility] ss 5 mg tablet 04-04 tablet (5 [facility] 00:00: 00:00 mg) by 00 :00 oral route once daily atorvastati take 1 Acc ess n 80 mg 04-04 tablet by [facility] tablet 00:00: 00:00 Oral route 00 :00 1 time per day carvedilol take 1 Acce ss 25 mg 04-04 tablet (25 [facility] tablet 00:00: 00:00 mg) by 00 :00 oral route 2 times per day with food clopidogrel take 1 Acc ess 75 mg 04-04 tablet (75 [facility] tablet 00:00: 00:00 mg) by 00 :00 oral route once daily isosorbide take 1 Ac[facility] ss mononitrate 04-04 tablet (60 [facility] 60 mg 00:00: 00:00 mg) by tablet,exte 00 :00 oral route nded once daily release 24 in the hr morning lisinopril take 1 Acce ss 40 mg 04-04 tablet (40 [facility] tablet 00:00: 00:00 mg) by 00 :00 oral route once daily metolazone take 1 Ac[facility] ss 5 mg tablet 04-04 tablet (5 [facility] 00:00: 00:00 mg) by 00 :00 oral route once daily Levemir inject 34 [facility] ss FlexTouch 04-04 Units by [facility] U-100 00:00: 00:00 Subcutaneo Insulin 100 00 :00 us route 2 unit/mL (3 times per mL) day in the subcutaneou morning s pen and evening Humalog 2019- No inject Access KwikPen 04-0406 5-10 Units [facility] (U-100) 00:00: 00:00 by Insulin 100 00 :00 Subcutaneo unit/mL us route 3 subcutaneou times per s day on a sliding scale three times a day before meals amlodipine No take 1 Ac[facility] ss 5 mg tablet 04-04 tablet (5 [facility] 00:00: 00:00 mg) by 00 :00 oral route once daily atorvastati No take 1 Acc ess n 80 mg 04-04 tablet by [facility] tablet 00:00: 00:00 Oral route 00 :00 1 time per day carvedilol No take 1 Acce ss 25 mg 04-04 tablet (25 [facility] tablet 00:00: 00:00 mg) by 00 :00 oral route 2 times per day with food clopidogrel No take 1 Acc ess 75 mg 04-04 tablet (75 [facility] tablet 00:00: 00:00 mg) by 00 :00 oral route once daily isosorbide No take 1 Ac[facility] ss mononitrate 04-04 tablet (60 [facility] 60 mg 00:00: 00:00 mg) by tablet,exte 00 :00 oral route nded once daily release 24 in the hr morning lisinopril take 1 Acce ss 40 mg 04-04 tablet (40 [facility] tablet 00:00: 00:00 mg) by 00 :00 oral route once daily furosemide 2019- No 1{table Q12H take 1 A ccess 40 mg 04-04 t} tablet by [facility] tablet 00:00: 00:00 oral route 00 :00 2 times every day furosemide 2019- No 1{table Q12H take 1 A ccess 40 mg 04-04 t} tablet by [facility] tablet 00:00: 00:00 oral route 00 :00 2 times every day furosemide 2019- No 1{table Q12H take 1 A ccess 40 mg 04-04 t} tablet by [facility] tablet 00:00: 00:00 oral route 00 :00 2 times every day furosemide 2019- No 1{table Q12H take 1 A ccess 40 mg 1-07 02-11 t} tablet by [facility] tablet 00:00: 00:00 oral route 00 :00 2 times every day furosemide 2020-0 2020- No 1{table Q12H take 1 A ccess 40 mg 1-09 27-11 t} tablet by [facility] tablet 00:00: 00:00 oral route 00 :00 2 times every day furosemide 2020-0 2020- No 1{table Q12H take 1 A ccess 40 mg 1-09 27-11 t} tablet by [facility] tablet 00:00: 00:00 oral route 00 :00 2 times every day furosemide 2020-0 2020- No 1{table Q12H take 1 A ccess 40 mg 1-09 27-11 t} tablet by [facility] tablet 00:00: 00:00 oral route 00 :00 2 times every day furosemide 2020-0 2020- No 1{table Q12H take 1 A ccess 40 mg 1-09 27-11 t} tablet by [facility] tablet 00:00: 00:00 oral route 00 :00 2 times every day furosemide 2020-0 2020- No 1{table Q12H take 1 A ccess 40 mg 1-09 27-11 t} tablet by [facility] tablet 00:00: 00:00 oral route 00 :00 2 times every day furosemide 2020-0 2020- No 1{table Q12H take 1 A ccess 40 mg -09 27-11 t} tablet by [facility] tablet 00:00: 00:00 oral route 00 :00 2 times every day furosemide 2020-0 2020- No 1{table Q12H take 1 A ccess 40 mg 1-09 27-11 t} tablet by [facility] tablet 00:00: 00:00 oral route 00 :00 2 times every day furosemide 2020-0 2020- No 1{table Q12H take 1 A ccess 40 mg 1-09 27-11 t} tablet by [facility] tablet 00:00: 00:00 oral route 00 :00 2 times every day furosemide 2020-0 2020- No 1{table Q12H take 1 A ccess 40 mg 1-09 27-11 t} tablet by [facility] tablet 00:00: 00:00 oral route 00 :00 2 times every day furosemide 2020-0 2020- No 1{table Q12H take 1 A ccess 40 mg 1-09 27-11 t} tablet by [facility] tablet 00:00: 00:00 oral route 00 :00 2 times every day furosemide 2020-0 2020- No 1{table Q12H take 1 A ccess 40 mg 04-04 t} tablet by [facility] tablet 00:00: 00:00 oral route 00 :00 2 times every day furosemide 2019-2019- No 1{table Q12H take 1 A ccess 40 mg 04-04 t} tablet by [facility] tablet 00:00: 00:00 oral route 00 :00 2 times every day furosemide 2019-0 2020- No 1{table Q12H take 1 A ccess 40 mg 04-04 t} tablet by [facility] tablet 00:00: 00:00 oral route 00 :00 2 times every day ipratropium 2019- 2020- No inhale 3 A ccess -albuterol 04-04 milliliter He alth 0.5 mg-3 00:00: 00:00 s by mg(2.5 mg 00 :00 nebulizati base)/3 mL on route 4 nebulizatio times per n soln day and as needed, up to 6 doses per day ipratropium 2019- No inhale 3 A ccess -albuterol 04-04 milliliter He alth 0.5 mg-3 00:00: 00:00 s by mg(2.5 mg 00 :00 nebulizati base)/3 mL on route 4 nebulizatio times per n soln day and as needed, up to 6 doses per day ipratropium 2019-2019- No inhale 3 A ccess -albuterol 04-04 milliliter He alth 0.5 mg-3 00:00: 00:00 s by mg(2.5 mg 00 :00 nebulizati base)/3 mL on route 4 nebulizatio times per n soln day and as needed, up to 6 doses per day ipratropium 2019-2019- No inhale 3 A ccess -albuterol 04-04 milliliter He alth 0.5 mg-3 00:00: 00:00 s by mg(2.5 mg 00 :00 nebulizati base)/3 mL on route 4 nebulizatio times per n soln day and as needed, up to 6 doses per day ipratropium 2019-2019- No inhale 3 A ccess -albuterol 04-04 milliliter He alth 0.5 mg-3 00:00: 00:00 s by mg(2.5 mg 00 :00 nebulizati base)/3 mL on route 4 nebulizatio times per n soln day and as needed, up to 6 doses per day ipratropium 2019-0 2020- No inhale 3 A ccess -albuterol 04-04 milliliter He alth 0.5 mg-3 00:00: 00:00 s by mg(2.5 mg 00 :00 nebulizati base)/3 mL on route 4 nebulizatio times per n soln day and as needed, up to 6 doses per day ipratropium 2019-0 2020- No inhale 3 A ccess -albuterol 04-04 milliliter He alth 0.5 mg-3 00:00: 00:00 s by mg(2.5 mg 00 :00 nebulizati base)/3 mL on route 4 nebulizatio times per n soln day and as needed, up to 6 doses per day ipratropium 2019-0 2020- No inhale 3 A ccess -albuterol 04-04 milliliter He alth 0.5 mg-3 00:00: 00:00 s by mg(2.5 mg 00 :00 nebulizati base)/3 mL on route 4 nebulizatio times per n soln day and as needed, up to 6 doses per day ipratropium 2019-0 2020- No inhale 3 A ccess -albuterol 04-04 milliliter He alth 0.5 mg-3 00:00: 00:00 s by mg(2.5 mg 00 :00 nebulizati base)/3 mL on route 4 nebulizatio times per n soln day and as needed, up to 6 doses per day ipratropium 2019-0 2020- No inhale 3 A ccess -albuterol 04-04 milliliter He alth 0.5 mg-3 00:00: 00:00 s by mg(2.5 mg 00 :00 nebulizati base)/3 mL on route 4 nebulizatio times per n soln day and as needed, up to 6 doses per day ipratropium 2019-0 2020- No inhale 3 A ccess -albuterol 04-04 milliliter He alth 0.5 mg-3 00:00: 00:00 s by mg(2.5 mg 00 :00 nebulizati base)/3 mL on route 4 nebulizatio times per n soln day and as needed, up to 6 doses per day ipratropium 2019-2019- No inhale 3 A ccess -albuterol 04-04 milliliter He alth 0.5 mg-3 00:00: 00:00 s by mg(2.5 mg 00 :00 nebulizati base)/3 mL on route 4 nebulizatio times per n soln day and as needed, up to 6 doses per day ipratropium 2019- No inhale 3 A ccess -albuterol 04-04 milliliter He alth 0.5 mg-3 00:00: 00:00 s by mg(2.5 mg 00 :00 nebulizati base)/3 mL on route 4 nebulizatio times per n soln day and as needed, up to 6 doses per day ipratropium 2019-2019- No inhale 3 A ccess -albuterol 04-04 milliliter He alth 0.5 mg-3 00:00: 00:00 s by mg(2.5 mg 00 :00 nebulizati base)/3 mL on route 4 nebulizatio times per n soln day and as needed, up to 6 doses per day ipratropium 2019-2019- No inhale 3 A ccess -albuterol 04-04 milliliter He alth 0.5 mg-3 00:00: 00:00 s by mg(2.5 mg 00 :00 nebulizati base)/3 mL on route 4 nebulizatio times per n soln day and as needed, up to 6 doses per day ipratropium 2019-0 2019- No inhale 3 A ccess -albuterol 04-04 milliliter He alth 0.5 mg-3 00:00: 00:00 s by mg(2.5 mg 00 :00 nebulizati base)/3 mL on route 4 nebulizatio times per n soln day and as needed, up to 6 doses per day ipratropium 2019-0 2019- No inhale 3 A ccess -albuterol 04-04 milliliter He alth 0.5 mg-3 00:00: 00:00 s by mg(2.5 mg 00 :00 nebulizati base)/3 mL on route 4 nebulizatio times per n soln day and as needed, up to 6 doses per day ipratropium 2019-2019- No inhale 3 A ccess -albuterol 04-04 milliliter He alth 0.5 mg-3 00:00: 00:00 s by mg(2.5 mg 00 :00 nebulizati base)/3 mL on route 4 nebulizatio times per n soln day and as needed, up to 6 doses per day ipratropium 2019-0 2019- No inhale 3 A ccess -albuterol 04-04 milliliter He alth 0.5 mg-3 00:00: 00:00 s by mg(2.5 mg 00 :00 nebulizati base)/3 mL on route 4 nebulizatio times per n soln day and as needed, up to 6 doses per day ipratropium 2019-0 2019- No inhale 3 A ccess -albuterol 04-04 milliliter He alth 0.5 mg-3 00:00: 00:00 s by mg(2.5 mg 00 :00 nebulizati base)/3 mL on route 4 nebulizatio times per n soln day and as needed, up to 6 doses per day ipratropium 2019-2019- No inhale 3 A ccess -albuterol 04-04 milliliter [facility] alth 0.5 mg-3 00:00: 00:00 s by mg(2.5 mg 00 :00 nebulizati base)/3 mL on route 4 nebulizatio times per n soln day and as needed, up to 6 doses per day ipratropium 2019-0 2019- No inhale 3 A ccess -albuterol 04-04 milliliter He alth 0.5 mg-3 00:00: 00:00 s by mg(2.5 mg 00 :00 nebulizati base)/3 mL on route 4 nebulizatio times per n soln day and as needed, up to 6 doses per day ipratropium 2019-0 2020- No inhale 3 A ccess -albuterol 04-04 milliliter [facility] alth 0.5 mg-3 00:00: 00:00 s by mg(2.5 mg 00 :00 nebulizati base)/3 mL on route 4 nebulizatio times per n soln day and as needed, up to 6 doses per day ipratropium 2019-2019- No inhale 3 A ccess -albuterol 04-04 milliliter [facility] alth 0.5 mg-3 00:00: 00:00 s by mg(2.5 mg 00 :00 nebulizati base)/3 mL on route 4 nebulizatio times per n soln day and as needed, up to 6 doses per day ipratropium 2019- 2020- No inhale 3 A ccess -albuterol 04-04 milliliter [facility] alth 0.5 mg-3 00:00: 00:00 s by mg(2.5 mg 00 :00 nebulizati base)/3 mL on route 4 nebulizatio times per n soln day and as needed, up to 6 doses per day ipratropium 2019-0 2019- No inhale 3 A ccess -albuterol 04-04 milliliter [facility] al[facility] 0.5 mg-3 00:00: 00:00 s by mg(2.5 mg 00 :00 nebulizati base)/3 mL on route 4 nebulizatio times per n soln day and as needed, up to 6 doses per day ipratropium 2019-2019- No inhale 3 A ccess -albuterol 04-04 milliliter [facility] alth 0.5 mg-3 00:00: 00:00 s by mg(2.5 mg 00 :00 nebulizati base)/3 mL on route 4 nebulizatio times per n soln day and as needed, up to 6 doses per day ipratropium 2019-0 2020- No inhale 3 A ccess -albuterol 04-04 milliliter [facility] alth 0.5 mg-3 00:00: 00:00 s by mg(2.5 mg 00 :00 nebulizati base)/3 mL on route 4 nebulizatio times per n soln day and as needed, up to 6 doses per day ipratropium 2019-0 2020- No inhale 3 A ccess -albuterol 04-04 milliliter [facility] alth 0.5 mg-3 00:00: 00:00 s by mg(2.5 mg 00 :00 nebulizati base)/3 mL on route 4 nebulizatio times per n soln day and as needed, up to 6 doses per day ipratropium 2019-2019- No inhale 3 A ccess -albuterol 04-04 milliliter [facility] alth 0.5 mg-3 00:00: 00:00 s by mg(2.5 mg 00 :00 nebulizati base)/3 mL on route 4 nebulizatio times per n soln day and as needed, up to 6 doses per day ipratropium 2019-0 2019- No inhale 3 A ccess -albuterol 04-04 milliliter [facility] alth 0.5 mg-3 00:00: 00:00 s by mg(2.5 mg 00 :00 nebulizati base)/3 mL on route 4 nebulizatio times per n soln day and as needed, up to 6 doses per day ipratropium 2019-2019- No inhale 3 A ccess -albuterol 04-04 milliliter [facility] alth 0.5 mg-3 00:00: 00:00 s by mg(2.5 mg 00 :00 nebulizati base)/3 mL on route 4 nebulizatio times per n soln day and as needed, up to 6 doses per day ipratropium 2019-0 2019- No inhale 3 A ccess -albuterol 04-04 milliliter [facility] alth 0.5 mg-3 00:00: 00:00 s by mg(2.5 mg 00 :00 nebulizati base)/3 mL on route 4 nebulizatio times per n soln day and as needed, up to 6 doses per day ipratropium 2019-0 2020- No inhale 3 A ccess -albuterol 04-04 milliliter [facility] alth 0.5 mg-3 00:00: 00:00 s by mg(2.5 mg 00 :00 nebulizati base)/3 mL on route 4 nebulizatio times per n soln day and as needed, up to 6 doses per day amlodipine 2019- No take 1 Acce ss 5 mg tablet 07-26 tablet (5 [facility] 00:00: 00:00 mg) by 00 :00 oral route once daily atorvastati No take 1 Acc ess n 80 mg 07-26 tablet by [facility] tablet 00:00: 00:00 Oral route 00 :00 1 time per day bumetanide No take 1 Acce ss 1 mg tablet 07-26 tablet (1 [facility] 00:00: 00:00 mg) by 00 :00 oral route 2 times per day isosorbide No take 1 [facility] mononitrate 07-26 tablet (60 [facility] 60 mg 00:00: 00:00 mg) by tablet,exte 00 :00 oral route nded once daily release 24 in the hr morning Levemir 2019- No inject 34 Acce ss FlexTouch 07-26 Units by [facility] U-100 00:00: 00:00 Subcutaneo Insulin 100 00 :00 us route 2 unit/mL (3 times per mL) day in the subcutaneou morning s pen and evening lisinopril take 1 Acce ss 40 mg 07-26 tablet (40 [facility] tablet 00:00: 00:00 mg) by 00 :00 oral route once daily metolazone No take 1 Acce ss 5 mg tablet 07-26 tablet (5 [facility] 00:00: 00:00 mg) by 00 :00 oral route once daily ProAir HFA 2019- No inhale 2 Ac cess 90 07-26 puffs (180 [facility] mcg/actuati 00:00: 00:00 mcg) by on aerosol 00 :00 inhalation inhaler route every 4 hours as needed carvedilol No take 1 Acce ss 25 mg 07-26 tablet (25 [facility] tablet 00:00: 00:00 mg) by 00 :00 oral route 2 times per day with food clopidogrel 2019-0 2020- No take 1 Acc ess 75 mg 07-26 tablet (75 [facility] tablet 00:00: 00:00 mg) by 00 :00 oral route once daily Humalog 2019- No inject Access KwikPen 07-26 5-10 Units [facility] (U-100) 00:00: 00:00 by Insulin 100 00 :00 Subcutaneo unit/mL us route 3 subcutaneou times per s day on a sliding scale three times a day before meals ipratropium 2019- No inhale 3 A ccess -albuterol 07-26 milliliter [facility] al[facility] 0.5 mg-3 00:00: 00:00 s by mg(2.5 mg 00 :00 nebulizati base)/3 mL on route 4 nebulizatio times per n soln day and as needed, up to 6 doses per day Requip 0.5 2019- No take 2 Acce ss mg tablet 07-26 tablets by [facility] 00:00: 00:00 Oral route 00 :00 1 time per day 1-3 hours before bedtime for restless legs amlodipine 2019- No take 1 Acce ss 5 mg tablet 07-26 tablet (5 [facility] 00:00: 00:00 mg) by 00 :00 oral route once daily atorvastati 2019- No take 1 Acc ess n 80 mg 07-26 tablet by [facility] tablet 00:00: 00:00 Oral route 00 :00 1 time per day bumetanide 2019- No take 1 Acce ss 1 mg tablet 07-26 tablet (1 [facility] 00:00: 00:00 mg) by 00 :00 oral route 2 times per day isosorbide 2019- No take 1 Ac[facility] ss mononitrate 07-26 tablet (60 [facility] ER 60 mg 00:00: 00:00 mg) by tablet,exte 00 :00 oral route nded once daily release 24 in the hr morning Levemir 2019- No inject 34 Ac[facility] ss FlexTouch 07-26 Units by [facility] U-100 00:00: 00:00 Subcutaneo Insulin 100 00 :00 us route 2 unit/mL (3 times per mL) day in the subcutaneou morning s pen and evening lisinopril 2019- No take 1 Acce ss 40 mg 07-26 tablet (40 [facility] tablet 00:00: 00:00 mg) by 00 :00 oral route once daily metolazone 2019- No take 1 Acce ss 5 mg tablet 07-26 tablet (5 [facility] 00:00: 00:00 mg) by 00 :00 oral route once daily ProAir HFA 2019- No inhale 2 Ac cess 90 07-26 puffs (180 [facility] mcg/actuati 00:00: 00:00 mcg) by on aerosol 00 :00 inhalation inhaler route every 4 hours as needed carvedilol No take 1 Acce ss 25 mg 07-26 tablet (25 [facility] tablet 00:00: 00:00 mg) by 00 :00 oral route 2 times per day with food clopidogrel No take 1 Acc ess 75 mg 07-26 tablet (75 [facility] tablet 00:00: 00:00 mg) by 00 :00 oral route once daily Humalog 2019- No inject Access KwikPen 07-26 5-10 Units [facility] (U-100) 00:00: 00:00 by Insulin 100 00 :00 Subcutaneo unit/mL us route 3 subcutaneou times per s day on a sliding scale three times a day before meals ipratropium 2019- No inhale 3 A ccess -albuterol 07-26 milliliter [facility] 0.5 mg-3 00:00: 00:00 s by mg(2.5 mg 00 :00 nebulizati base)/3 mL on route 4 nebulizatio times per n soln day and as needed, up to 6 doses per day Requip 0.5 No take 2 Acce ss mg tablet 07-26 tablets by [facility] 00:00: 00:00 Oral route 00 :00 1 time per day 1-3 hours before bedtime for restless legs amlodipine 2019- No take 1 Acce ss 5 mg tablet 07-26 tablet (5 [facility] 00:00: 00:00 mg) by 00 :00 oral route once daily atorvastati 2019- No take 1 Acc ess n 80 mg 07-26 tablet by [facility] tablet 00:00: 00:00 Oral route 00 :00 1 time per day bumetanide 2019- No take 1 Acce ss 1 mg tablet 07-26 tablet (1 [facility] 00:00: 00:00 mg) by 00 :00 oral route 2 times per day isosorbide 2019- No take 1 Ac[facility] ss mononitrate 07-26 tablet (60 [facility] ER 60 mg 00:00: 00:00 mg) by tablet,exte 00 :00 oral route nded once daily release 24 in the hr morning Levemir 2019- No inject 34 Acce ss FlexTouch 07-26 Units by [facility] U-100 00:00: 00:00 Subcutaneo Insulin 100 00 :00 us route 2 unit/mL (3 times per mL) day in the subcutaneou morning s pen and evening lisinopril 2019- No take 1 Acce ss 40 mg 07-26 tablet (40 [facility] tablet 00:00: 00:00 mg) by 00 :00 oral route once daily metolazone 2019- No take 1 Acce ss 5 mg tablet 07-26 tablet (5 [facility] 00:00: 00:00 mg) by 00 :00 oral route once daily ProAir HFA 2019- No inhale 2 Ac cess 90 07-26 puffs (180 [facility] mcg/actuati 00:00: 00:00 mcg) by on aerosol 00 :00 inhalation inhaler route every 4 hours as needed carvedilol 2019- No take 1 Acce ss 25 mg 07-26 tablet (25 [facility] tablet 00:00: 00:00 mg) by 00 :00 oral route 2 times per day with food clopidogrel No take 1 Acc ess 75 mg 07-26 tablet (75 [facility] tablet 00:00: 00:00 mg) by 00 :00 oral route once daily Humalog 2019- No inject Access KwikPen 07-26 5-10 Units [facility] (U-100) 00:00: 00:00 by Insulin 100 00 :00 Subcutaneo unit/mL us route 3 subcutaneou times per s day on a sliding scale three times a day before meals ipratropium 2019- No inhale 3 A ccess -albuterol 07-26 milliliter [facility] 0.5 mg-3 00:00: 00:00 s by mg(2.5 mg 00 :00 nebulizati base)/3 mL on route 4 nebulizatio times per n soln day and as needed, up to 6 doses per day Requip 0.5 2019- No take 2 Acce ss mg tablet 07-26 tablets by [facility] 00:00: 00:00 Oral route 00 :00 1 time per day 1-3 hours before bedtime for restless legs amlodipine 2019- No take 1 Acce ss 5 mg tablet 07-26 tablet (5 [facility] 00:00: 00:00 mg) by 00 :00 oral route once daily atorvastati 2019- No take 1 Acc ess n 80 mg 07-26 tablet by [facility] tablet 00:00: 00:00 Oral route 00 :00 1 time per day bumetanide 2019- No take 1 Acce ss 1 mg tablet 07-26 tablet (1 [facility] 00:00: 00:00 mg) by 00 :00 oral route 2 times per day isosorbide 2019- No take 1 Acce ss mononitrate 07-26 tablet (60 [facility] ER 60 mg 00:00: 00:00 mg) by tablet,exte 00 :00 oral route nded once daily release 24 in the hr morning Levemir 2019- No inject 34 Acce ss FlexTouch 07-26 Units by [facility] U-100 00:00: 00:00 Subcutaneo Insulin 100 00 :00 us route 2 unit/mL (3 times per mL) day in the subcutaneou morning s pen and evening lisinopril 2019- No take 1 Acce ss 40 mg 07-26 tablet (40 [facility] tablet 00:00: 00:00 mg) by 00 :00 oral route once daily metolazone 2019- No take 1 Acce ss 5 mg tablet 07-26 tablet (5 [facility] 00:00: 00:00 mg) by 00 :00 oral route once daily ProAir HFA 2019- No inhale 2 Ac cess 90 07-26 puffs (180 [facility] mcg/actuati 00:00: 00:00 mcg) by on aerosol 00 :00 inhalation inhaler route every 4 hours as needed carvedilol take 1 Acce ss 25 mg 07-26 tablet (25 [facility] tablet 00:00: 00:00 mg) by 00 :00 oral route 2 times per day with food clopidogrel No take 1 Acc ess 75 mg 07-26 tablet (75 [facility] tablet 00:00: 00:00 mg) by 00 :00 oral route once daily Humalog No inject Access KwikPen 07-26 5-10 Units [facility] (U-100) 00:00: 00:00 by Insulin 100 00 :00 Subcutaneo unit/mL us route 3 subcutaneou times per s day on a sliding scale three times a day before meals ipratropium 2019- No inhale 3 A ccess -albuterol 07-26 milliliter [facility] 0.5 mg-3 00:00: 00:00 s by mg(2.5 mg 00 :00 nebulizati base)/3 mL on route 4 nebulizatio times per n soln day and as needed, up to 6 doses per day Requip 0.5 No take 2 Acce ss mg tablet 07-26 tablets by [facility] 00:00: 00:00 Oral route 00 :00 1 time per day 1-3 hours before bedtime for restless legs amlodipine 2019- No take 1 Acce ss 5 mg tablet 07-26 tablet (5 [facility] 00:00: 00:00 mg) by 00 :00 oral route once daily atorvastati No take 1 Acc ess n 80 mg 07-26 tablet by [facility] tablet 00:00: 00:00 Oral route 00 :00 1 time per day bumetanide 2019- No take 1 Acce ss 1 mg tablet 07-26 tablet (1 [facility] 00:00: 00:00 mg) by 00 :00 oral route 2 times per day isosorbide No take 1 Ac[facility] ss mononitrate 07-26 tablet (60 [facility] 60 mg 00:00: 00:00 mg) by tablet,exte 00 :00 oral route nded once daily release 24 in the hr morning Levemir 2019- No inject 34 Ac[facility] ss FlexTouch 07-26 Units by [facility] U-100 00:00: 00:00 Subcutaneo Insulin 100 00 :00 us route 2 unit/mL (3 times per mL) day in the subcutaneou morning s pen and evening lisinopril No take 1 Acce ss 40 mg 07-26 tablet (40 [facility] tablet 00:00: 00:00 mg) by 00 :00 oral route once daily metolazone 2019- No take 1 Acce ss 5 mg tablet 07-26 tablet (5 [facility] 00:00: 00:00 mg) by 00 :00 oral route once daily ProAir HFA 2019- No inhale 2 Ac cess 90 07-26 puffs (180 [facility] mcg/actuati 00:00: 00:00 mcg) by on aerosol 00 :00 inhalation inhaler route every 4 hours as needed carvedilol 2019- No take 1 Acce ss 25 mg 07-26 tablet (25 [facility] tablet 00:00: 00:00 mg) by 00 :00 oral route 2 times per day with food clopidogrel take 1 Acc ess 75 mg 07-26 tablet (75 [facility] tablet 00:00: 00:00 mg) by 00 :00 oral route once daily Humalog 2019- No inject Access KwikPen 07-26 5-10 Units [facility] (U-100) 00:00: 00:00 by Insulin 100 00 :00 Subcutaneo unit/mL us route 3 subcutaneou times per s day on a sliding scale three times a day before meals ipratropium 2019- No inhale 3 A ccess -albuterol 07-26 milliliter [facility] 0.5 mg-3 00:00: 00:00 s by mg(2.5 mg 00 :00 nebulizati base)/3 mL on route 4 nebulizatio times per n soln day and as needed, up to 6 doses per day Requip 0.5 2019- No take 2 Acce ss mg tablet 07-26 tablets by [facility] 00:00: 00:00 Oral route 00 :00 1 time per day 1-3 hours before bedtime for restless legs amlodipine 2019- No take 1 Acce ss 5 mg tablet 07-26 tablet (5 [facility] 00:00: 00:00 mg) by 00 :00 oral route once daily atorvastati 2019- No take 1 Acc ess n 80 mg 07-26 tablet by [facility] tablet 00:00: 00:00 Oral route 00 :00 1 time per day bumetanide 2019- No take 1 Acce ss 1 mg tablet 07-26 tablet (1 [facility] 00:00: 00:00 mg) by 00 :00 oral route 2 times per day isosorbide 2019- No take 1 Ac[facility] ss mononitrate 07-26 tablet (60 [facility] ER 60 mg 00:00: 00:00 mg) by tablet,exte 00 :00 oral route nded once daily release 24 in the hr morning Levemir 2019- No inject 34 Ac[facility] ss FlexTouch 07-26 Units by [facility] U-100 00:00: 00:00 Subcutaneo Insulin 100 00 :00 us route 2 unit/mL (3 times per mL) day in the subcutaneou morning s pen and evening lisinopril 2019- No take 1 Acce ss 40 mg 07-26 tablet (40 [facility] tablet 00:00: 00:00 mg) by 00 :00 oral route once daily metolazone 2019- No take 1 Acce ss 5 mg tablet 07-26 tablet (5 [facility] 00:00: 00:00 mg) by 00 :00 oral route once daily ProAir HFA 2019- No inhale 2 Ac cess 90 4-30 01-07 puffs (180 [facility] mcg/actuati 00:00: 00:00 mcg) by on aerosol 00 :00 inhalation inhaler route every 4 hours as needed carvedilol 2019- No take 1 Acce ss 25 mg 07-26 tablet (25 [facility] tablet 00:00: 00:00 mg) by 00 :00 oral route 2 times per day with food clopidogrel 2019- No take 1 Acc ess 75 mg 07-26 tablet (75 [facility] tablet 00:00: 00:00 mg) by 00 :00 oral route once daily Humalog 2019- inject Access KwikPen 07-26 5-10 Units [facility] (U-100) 00:00: 00:00 by Insulin 100 00 :00 Subcutaneo unit/mL us route 3 subcutaneou times per s day on a sliding scale three times a day before meals ipratropium 2019- No inhale 3 A ccess -albuterol 07-26 milliliter [facility] al[facility] 0.5 mg-3 00:00: 00:00 s by mg(2.5 mg 00 :00 nebulizati base)/3 mL on route 4 nebulizatio times per n soln day and as needed, up to 6 doses per day Requip 0.5 2019- No take 2 Acce ss mg tablet 07-26 tablets by [facility] 00:00: 00:00 Oral route 00 :00 1 time per day 1-3 hours before bedtime for restless legs amlodipine 2019- No take 1 Acce ss 5 mg tablet 07-26 tablet (5 [facility] 00:00: 00:00 mg) by 00 :00 oral route once daily atorvastati 2019- No take 1 Acc ess n 80 mg 07-26 tablet by [facility] tablet 00:00: 00:00 Oral route 00 :00 1 time per day bumetanide 2019- No take 1 Acce ss 1 mg tablet 07-26 tablet (1 [facility] 00:00: 00:00 mg) by 00 :00 oral route 2 times per day isosorbide 2019- No take 1 Acce ss mononitrate 07-26 tablet (60 [facility] ER 60 mg 00:00: 00:00 mg) by tablet,exte 00 :00 oral route nded once daily release 24 in the hr morning Levemir 2019- No inject 34 Ac[facility] ss FlexTouch 07-26 Units by [facility] U-100 00:00: 00:00 Subcutaneo Insulin 100 00 :00 us route 2 unit/mL (3 times per mL) day in the subcutaneou morning s pen and evening lisinopril 2019- No take 1 Acce ss 40 mg 07-26 tablet (40 [facility] tablet 00:00: 00:00 mg) by 00 :00 oral route once daily metolazone 2019- No take 1 Acce ss 5 mg tablet 07-26 tablet (5 [facility] 00:00: 00:00 mg) by 00 :00 oral route once daily ProAir HFA 2019- No inhale 2 Ac cess 90 07-26 puffs (180 [facility] mcg/actuati 00:00: 00:00 mcg) by on aerosol 00 :00 inhalation inhaler route every 4 hours as needed carvedilol 2019- No take 1 Acce ss 25 mg 07-26 tablet (25 [facility] tablet 00:00: 00:00 mg) by 00 :00 oral route 2 times per day with food clopidogrel 2019- No take 1 Acc ess 75 mg 07-26 tablet (75 [facility] tablet 00:00: 00:00 mg) by 00 :00 oral route once daily Humalog 2019- No [facility] by Insulin 100 00 :00 Subcutaneo unit/mL us route 3 subcutaneou times per s day on a sliding scale three times a day before meals ipratropium 2019- No inhale 3 A ccess -albuterol 07-26 milliliter [facility] alth 0.5 mg-3 00:00: 00:00 s by mg(2.5 mg 00 :00 nebulizati base)/3 mL on route 4 nebulizatio times per n soln day and as needed, up to 6 doses per day Requip 0.5 2019- No take 2 Acce ss mg tablet 07-26 tablets by [facility] 00:00: 00:00 Oral route 00 :00 1 time per day 1-3 hours before bedtime for restless legs amlodipine 2019- No take 1 Acce ss 5 mg tablet 07-26 tablet (5 [facility] 00:00: 00:00 mg) by 00 :00 oral route once daily atorvastati 2019- No take 1 Acc ess n 80 mg 07-26 tablet by [facility] tablet 00:00: 00:00 Oral route 00 :00 1 time per day bumetanide No take 1 Acce ss 1 mg tablet 07-26 tablet (1 [facility] 00:00: 00:00 mg) by 00 :00 oral route 2 times per day isosorbide 2019- No take 1 Acce ss mononitrate 07-26 tablet (60 [facility] ER 60 mg 00:00: 00:00 mg) by tablet,exte 00 :00 oral route nded once daily release 24 in the hr morning Levemir 2019- No inject 34 Acce ss FlexTouch 07-26 Units by [facility] U-100 00:00: 00:00 Subcutaneo Insulin 100 00 :00 us route 2 unit/mL (3 times per mL[facility] lisinop[facility] 2019- No take 1 Acce ss 40 mg 07-26 tablet (40 [facility] tablet 00:00: 00:00 mg) by 00 :00 oral route once daily metolazone No take 1 Acce ss 5 mg tablet 07-26 tablet (5 [facility] alth 00:00: 00:00 mg) by 00 :00 oral route once daily ProAir HFA 2019- No inhale 2 Ac cess 90 07-26 puffs (180 [facility] mcg/actuati 00:00: 00:00 mcg) by on aerosol 00 :00 inhalation inhaler route every 4 hours as needed carvedilol No take 1 Acce ss 25 mg 07-26 tablet (25 [facility] tablet 00:00: 00:00 mg) by 00 :00 oral route 2 times per day with food clopidogrel 2019- No take 1 Acc ess 75 mg 07-26 tablet (75 [facility] tablet 00:00: 00:00 mg) by 00 :00 oral route once daily Humalog 2019- inject Access KwikPen 07-26 5-10 Units [facility] (U-100) 00:00: 00:00 by Insulin 100 00 :00 Subcutaneo unit/mL us route 3 subcutaneou times per s day on a sliding scale three times a day before meals ipratropium 2019- No inhale 3 A ccess -albuterol 07-26 milliliter [facility] al[facility] 0.5 mg-3 00:00: 00:00 s by mg(2.5 mg 00 :00 nebulizati base)/3 mL on route 4 nebulizatio times per n soln day and as needed, up to 6 doses per day Requip 0.5 2019- No take 2 Acce ss mg tablet 07-26 tablets by [facility] 00:00: 00:00 Oral route 00 :00 1 time per day 1-3 hours before bedtime for restless legs amlodipine 2019- No take 1 Acce ss 5 mg tablet 07-26 tablet (5 [facility] 00:00: 00:00 mg) by 00 :00 oral route once daily atorvastati 2019- No take 1 Acc ess n 80 mg 07-26 tablet by [facility] tablet 00:00: 00:00 Oral route 00 :00 1 time per day bumetanide 2019- No take 1 Acce ss 1 mg tablet 07-26 tablet (1 [facility] 00:00: 00:00 mg) by 00 :00 oral route 2 times per day isosorbide 2019- No take 1 Ac[facility] ss mononitrate 07-26 tablet (60 [facility] ER 60 mg 00:00: 00:00 mg) by tablet,exte 00 :00 oral route nded once daily release 24 in the hr morning Levemir 2019- No inject 34 Acce ss FlexTouch 07-26 Units by [facility] U-100 00:00: 00:00 Subcutaneo Insulin 100 00 :00 us route 2 unit/mL (3 times per mL) day in the subcutaneou morning s pen and evening lisinopril 2019- No take 1 Acce ss 40 mg 07-26 tablet (40 [facility] tablet 00:00: 00:00 mg) by 00 :00 oral route once daily metolazone 2019- No take 1 Acce ss 5 mg tablet 07-26 tablet (5 [facility] al[facility] 00:00: 00:00 mg) by 00 :00 oral route once daily ProAir HFA 2019- No inhale 2 Ac cess 90 07-26 puffs (180 [facility] mcg/actuati 00:00: 00:00 mcg) by on aerosol 00 :00 inhalation inhaler route every 4 hours as needed carvedilol 2019- No take 1 Acce ss 25 mg 07-26 tablet (25 [facility] tablet 00:00: 00:00 mg) by 00 :00 oral route 2 times per day with food clopidogrel 2019- No take 1 Acc ess 75 mg 07-26 tablet (75 [facility] tablet 00:00: 00:00 mg) by 00 :00 oral route once daily Humalog inject Access KwikPen 07-26 5-10 Units [facility] (U-100) 00:00: 00:00 by Insulin 100 00 :00 Subcutaneo unit/mL us route 3 subcutaneou times per s day on a sliding scale three times a day before meals ipratropium 2019- No inhale 3 A ccess -albuterol 07-26 milliliter [facility] al[facility] 0.5 mg-3 00:00: 00:00 s by mg(2.5 mg 00 :00 nebulizati base)/3 mL on route 4 nebulizatio times per n soln day and as needed, up to 6 doses per day Requip 0.5 2019- No take 2 Acce ss mg tablet 07-26 tablets by [facility] 00:00: 00:00 Oral route 00 :00 1 time per day 1-3 hours before bedtime for restless legs amlodipine 2019- No take 1 Acce ss 5 mg tablet 07-26 tablet (5 [facility] 00:00: 00:00 mg) by 00 :00 oral route once daily atorvastati No take 1 Acc ess n 80 mg 07-26 tablet by [facility] tablet 00:00: 00:00 Oral route 00 :00 1 time per day bumetanide 2019- No take 1 Acce ss 1 mg tablet 07-26 tablet (1 [facility] alth 00:00: 00:00 mg) by 00 :00 oral route 2 times per day isosorbide No take 1 Ac[facility] ss mononitrate 07-26 tablet (60 [facility] ER 60 mg 00:00: 00:00 mg) by tablet,exte 00 :00 oral route nded once daily release 24 in the hr morning Levemir 2019- No inject 34 Ac[facility] ss FlexTouch 07-26 Units by [facility] U-100 00:00: 00:00 Subcutaneo Insulin 100 00 :00 us route 2 unit/mL (3 times per mL) day in the subcutaneou morning s pen and evening lisinopril No take 1 Acce ss 40 mg 07-26 tablet (40 [facility] tablet 00:00: 00:00 mg) by 00 :00 oral route once daily metolazone 2019- No take 1 Acce ss 5 mg tablet 07-26 tablet (5 [facility] al[facility] 00:00: 00:00 mg) by 00 :00 oral route once daily ProAir HFA No inhale 2 Ac cess 90 07-26 puffs (180 [facility] mcg/actuati 00:00: 00:00 mcg) by on aerosol 00 :00 inhalation inhaler route every 4 hours as needed carvedilol take 1 Acce ss 25 mg 07-26 tablet (25 [facility] tablet 00:00: 00:00 mg) by 00 :00 oral route 2 times per day with food clopidogrel No take 1 Acc ess 75 mg 07-26 tablet (75 [facility] tablet 00:00: 00:00 mg) by 00 :00 oral route once daily Humalog 2019- No inject Access KwikPen 07-26 5-10 Units [facility] (U-100) 00:00: 00:00 by Insulin 100 00 :00 Subcutaneo unit/mL us route 3 subcutaneou times per s day on a sliding scale three times a day before meals ipratropium 2019- No inhale 3 A ccess -albuterol 07-26 milliliter [facility] al[facility] 0.5 mg-3 00:00: 00:00 s by mg(2.5 mg 00 :00 nebulizati base)/3 mL on route 4 nebulizatio times per n soln day and as needed, up to 6 doses per day Requip 0.5 2019- No take 2 Acce ss mg tablet 07-26 tablets by [facility] 00:00: 00:00 Oral route 00 :00 1 time per day 1-3 hours before bedtime for restless legs amlodipine 2019- No take 1 Acce ss 5 mg tablet 07-26 tablet (5 [facility] alth 00:00: 00:00 mg) by 00 :00 oral route once daily atorvastati 2019- No take 1 Acc ess n 80 mg 07-26 tablet by [facility] tablet 00:00: 00:00 Oral route 00 :00 1 time per day bumetanide 2019- No take 1 Acce ss 1 mg tablet 07-26 tablet (1 [facility] alth 00:00: 00:00 mg) by 00 :00 oral route 2 times per day isosorbide 2019- No take 1 Acce ss mononitrate 07-26 tablet (60 [facility] ER 60 mg 00:00: 00:00 mg) by tablet,exte 00 :00 oral route nded once daily release 24 in the hr morning Levemir 2019- No inject 34 Acce ss FlexTouch 07-26 Units by [facility] U-100 00:00: 00:00 Subcutaneo Insulin 100 00 :00 us route 2 unit/mL (3 times per mL) day in the subcutaneou morning s pen and evening lisinopril 2019- No take 1 Acce ss 40 mg 07-26 tablet (40 [facility] tablet 00:00: 00:00 mg) by 00 :00 oral route once daily metolazone No take 1 Acce ss 5 mg tablet 07-26 tablet (5 [facility] alth 00:00: 00:00 mg) by 00 :00 oral route once daily ProAir HFA No inhale 2 Ac cess 90 07-26 puffs (180 Health mcg/actuati 00:00: 00:00 mcg) by on aerosol 00 :00 inhalation inhaler route every 4 hours as needed carvedilol take 1 Acce ss 25 mg 07-26 tablet (25 Health tablet 00:00: 00:00 mg) by 00 :00 oral route 2 times per day with food clopidogrel take 1 Acc ess 75 mg 07-26 tablet (75 Health tablet 00:00: 00:00 mg) by 00 :00 oral route once daily Humalog inject Access KwikPen 07-26 5-10 Units [facility] (U-100) 00:00: 00:00 by Insulin 100 00 :00 Subcutaneo unit/mL us route 3 subcutaneou times per s day on a sliding scale three times a day before meals ipratropium 2019- No inhale 3 A ccess -albuterol 07-26 milliliter He alth 0.5 mg-3 00:00: 00:00 s by mg(2.5 mg 00 :00 nebulizati base)/3 mL on route 4 nebulizatio times per n soln day and as needed, up to 6 doses per day Requip 0.5 take 2 Acce ss mg tablet 07-26 tablets by [facility] 00:00: 00:00 Oral route 00 :00 1 time per day 1-3 hours before bedtime for restless legs amlodipine No take 1 Acce ss 5 mg tablet 07-26 tablet (5 [facility] alth 00:00: 00:00 mg) by 00 :00 oral route once daily atorvastati No take 1 Acc ess n 80 mg 07-26 tablet by Health tablet 00:00: 00:00 Oral route 00 :00 1 time per day bumetanide 2019- No take 1 Acce ss 1 mg tablet 07-26 tablet (1 [facility] alth 00:00: 00:00 mg) by 00 :00 oral route 2 times per day isosorbide 2019- No take 1 Acce ss mononitrate 07-26 tablet (60 [facility] ealth ER 60 mg 00:00: 00:00 mg) by tablet,exte 00 :00 oral route nded once daily release 24 in the hr morning Levemir 2019- No inject 34 Acce ss FlexTouch 07-26 Units by [facility]alt [facility] U-100 00:00: 00:00 Subcutaneo Insulin 100 00 :00 us route 2 unit/mL (3 times per mL) day in the subcutaneou morning s pen and evening lisinopril take 1 Acce ss 40 mg 07-26 tablet (40 Health tablet 00:00: 00:00 mg) by 00 :00 oral route once daily metolazone 2019- No take 1 Acce ss 5 mg tablet 07-26 tablet (5 [facility] alth 00:00: 00:00 mg) by 00 :00 oral route once daily ProAir HFA inhale 2 Ac cess 90 07-26 puffs (180 Health mcg/actuati 00:00: 00:00 mcg) by on aerosol 00 :00 inhalation inhaler route every 4 hours as needed carvedilol No take 1 Acce ss 25 mg 07-26 tablet (25 Health tablet 00:00: 00:00 mg) by 00 :00 oral route 2 times per day with food clopidogrel No take 1 Acc ess 75 mg 07-26 tablet (75 Health tablet 00:00: 00:00 mg) by 00 :00 oral route once daily Humalog inject Access KwikPen 07-26 5-10 Units [facility] (U-100) 00:00: 00:00 by Insulin 100 00 :00 Subcutaneo unit/mL us route 3 subcutaneou times per s day on a sliding scale three times a day before meals ipratropium 2019- No inhale 3 A ccess -albuterol 07-26 milliliter [facility] 0.5 mg-3 00:00: 00:00 s by mg(2.5 mg 00 :00 nebulizati base)/3 mL on route 4 nebulizatio times per n soln day and as needed, up to 6 doses per day Requip 0.5 2019- No take 2 Acce ss mg tablet 07-26 tablets by [facility] 00:00: 00:00 Oral route 00 :00 1 time per day 1-3 hours before bedtime for restless legs amlodipine 2019- No take 1 Acce ss 5 mg tablet 07-26 tablet (5 [facility] al[facility] 00:00: 00:00 mg) by 00 :00 oral route once daily atorvastati 2019- No take 1 Acc ess n 80 mg 07-26 tablet by Health tablet 00:00: 00:00 Oral route 00 :00 1 time per day bumetanide 2019- No take 1 Acce ss 1 mg tablet 07-26 tablet (1 [facility] al[facility] 00:00: 00:00 mg) by 00 :00 oral route 2 times per day isosorbide 2019- No take 1 Ac[facility] ss mononitrate 07-26 tablet (60 [facility] ER 60 mg 00:00: 00:00 mg) by tablet,exte 00 :00 oral route nded once daily release 24 in the hr morning Levemir 2019- No inject [facility]:00 Subcutaneo Insulin 100 00 :00 us route 2 unit/mL (3 times per mL) day in the subcutaneou morning s pen and evening lisinopril 2019- No take 1 Acce ss 40 mg 07-26 tablet (40 Health tablet 00:00: 00:00 mg) by 00 :00 oral route once daily metolazone 2019- No take 1 Acce ss 5 mg tablet 07-26 tablet (5 [facility] alth 00:00: 00:00 mg) by 00 :00 oral route once daily ProAir HFA 2019- No inhale 2 Ac cess 90 07-26 puffs (180 Health mcg/actuati 00:00: 00:00 mcg) by on aerosol 00 :00 inhalation inhaler route every 4 hours as needed carvedilol No take 1 Acce ss 25 mg 07-26 tablet (25 Health tablet 00:00: 00:00 mg) by 00 :00 oral route 2 times per day with food clopidogrel No take 1 Acc ess 75 mg 07-26 tablet (75 Health tablet 00:00: 00:00 mg) by 00 :00 oral route once daily Humalog inject Access KwikPen 07-26 5-10 Units [facility] (U-100) 00:00: 00:00 by Insulin 100 00 :00 Subcutaneo unit/mL us route 3 subcutaneou times per s day on a sliding scale three times a day before meals ipratropium 2019- No inhale 3 A ccess -albuterol 07-26 milliliter [facility] 0.5 mg-3 00:00: 00:00 s by mg(2.5 mg 00 :00 nebulizati base)/3 mL on route 4 nebulizatio times per n soln day and as needed, up to 6 doses per day Requip 0.5 2019- No take 2 Acce ss mg tablet 07-26 tablets by [facility] 00:00: 00:00 Oral route 00 :00 1 time per day 1-3 hours before bedtime for restless legs amlodipine 2019- No take 1 Acce ss 5 mg tablet 07-26 tablet (5 [facility] al[facility] 00:00: 00:00 mg) by 00 :00 oral route once daily atorvastati No take 1 Acc ess n 80 mg 07-26 tablet by Health tablet 00:00: 00:00 Oral route 00 :00 1 time per day bumetanide 2019- No take 1 Acce ss 1 mg tablet 07-26 tablet (1 [facility] alth 00:00: 00:00 mg) by 00 :00 oral route 2 times per day isosorbide 2019- No take 1 Acce ss mononitrate 07-26 tablet (60 [facility] ER 60 mg 00:00: 00:00 mg) by tablet,exte 00 :00 oral route nded once daily release 24 in the hr morning Levemir 2019- No inject 34 Acce ss FlexTouch 07-26 Units by [facility] U-100 00:00: 00:00 Subcutaneo Insulin 100 00 :00 us route 2 unit/mL (3 times per mL) day in the subcutaneou morning s pen and evening lisinopril 2019- No take 1 Acce ss 40 mg 07-26 tablet (40 Health tablet 00:00: 00:00 mg) by 00 :00 oral route once daily metolazone 2019- No take 1 Acce ss 5 mg tablet 07-26 tablet (5 [facility] alth 00:00: 00:00 mg) by 00 :00 oral route once daily ProAir HFA 2019- No inhale 2 Ac cess 90 07-26 puffs (180 Health mcg/actuati 00:00: 00:00 mcg) by on aerosol 00 :00 inhalation inhaler route every 4 hours as needed carvedilol No take 1 Acce ss 25 mg 07-26 tablet (25 Health tablet 00:00: 00:00 mg) by 00 :00 oral route 2 times per day with food clopidogrel 2019- No take 1 Acc ess 75 mg 07-26 tablet (75 Health tablet 00:00: 00:00 mg) by 00 :00 oral route once daily Humalog 2019- No inject Access KwikPen 07-26 5-10 Units [facility] (U-100) 00:00: 00:00 by Insulin 100 00 :00 Subcutaneo unit/mL us route 3 subcutaneou times per s day on a sliding scale three times a day before meals ipratropium 2019- No inhale 3 A ccess -albuterol 07-26 milliliter [facility] 0.5 mg-3 00:00: 00:00 s by mg(2.5 mg 00 :00 nebulizati base)/3 mL on route 4 nebulizatio times per n soln day and as needed, up to 6 doses per day Requip 0.5 2019- No take 2 Acce ss mg tablet 07-26 tablets by [facility] 00:00: 00:00 Oral route 00 :00 1 time per day 1-3 hours before bedtime for restless legs amlodipine 2019- No take 1 Acce ss 5 mg tablet 07-26 tablet (5 [facility] al[facility] 00:00: 00:00 mg) by 00 :00 oral route once daily atorvastati 2019- No take 1 Acc ess n 80 mg 07-26 tablet by Health tablet 00:00: 00:00 Oral route 00 :00 1 time per day bumetanide 2019- No take 1 Acce ss 1 mg tablet 07-26 tablet (1 [facility] 00:00: 00:00 mg) by 00 :00 oral route 2 times per day isosorbide 2019- No take 1 Acce ss mononitrate 07-26 tablet (60 [facility] ER 60 mg 00:00: 00:00 mg) by tablet,exte 00 :00 oral route nded once daily release 24 in the hr morning Levemir 2019- No inject 34 Acce ss FlexTouch 07-26 Units by [facility] U-100 00:00: 00:00 Subcutaneo Insulin 100 00 :00 us route 2 unit/mL (3 times per mL) day in the subcutaneou morning s pen and evening lisinopril 2019- No take 1 Acce ss 40 mg 07-26 tablet (40 Health tablet 00:00: 00:00 mg) by 00 :00 oral route once daily metolazone 2019- No take 1 Acce ss 5 mg tablet 07-26 tablet (5 [facility] 00:00: 00:00 mg) by 00 :00 oral route once daily ProAir HFA 2019- No inhale 2 Ac cess 90 07-26 puffs (180 Health mcg/actuati 00:00: 00:00 mcg) by on aerosol 00 :00 inhalation inhaler route every 4 hours as needed carvedilol take 1 Acce ss 25 mg 07-26 tablet (25 Health tablet 00:00: 00:00 mg) by 00 :00 oral route 2 times per day with food clopidogrel No take 1 Acc ess 75 mg 07-26 tablet (75 Health tablet 00:00: 00:00 mg) by 00 :00 oral route once daily Humalog inject Access KwikPen 07-26 5-10 Units [facility] (U-100) 00:00: 00:00 by Insulin 100 00 :00 Subcutaneo unit/mL us route 3 subcutaneou times per s day on a sliding scale three times a day before meals ipratropium inhale 3 A ccess -albuterol 07-26 milliliter [facility] 0.5 mg-3 00:00: 00:00 s by mg(2.5 mg 00 :00 nebulizati base)/3 mL on route 4 nebulizatio times per n soln day and as needed, up to 6 doses per day Requip 0.5 take 2 Acce ss mg tablet 07-26 tablets by [facility] 00:00: 00:00 Oral route 00 :00 1 time per day 1-3 hours before bedtime for restless legs amlodipine 2019- No take 1 Acce ss 5 mg tablet 07-26 tablet (5 [facility] 00:00: 00:00 mg) by 00 :00 oral route once daily atorvastati take 1 Acc ess n 80 mg 07-26 tablet by [facility] tablet 00:00: 00:00 Oral route 00 :00 1 time per day bumetanide No take 1 Acce ss 1 mg tablet 07-26 tablet (1 [facility] 00:00: 00:00 mg) by 00 :00 oral route 2 times per day isosorbide 2019- No take 1 Acce ss mononitrate 07-26 tablet (60 [facility] ER 60 mg 00:00: 00:00 mg) by tablet,exte 00 :00 oral route nded once daily release 24 in the hr morning Levemir 2019- No inject 34 Acce ss FlexTouch 07-26 Units by [facility] U-100 00:00: 00:00 Subcutaneo Insulin 100 00 :00 us route 2 unit/mL (3 times per mL) day in the subcutaneou morning s pen and evening lisinopril 2019- No take 1 Acce ss 40 mg 07-26 tablet (40 [facility] tablet 00:00: 00:00 mg) by 00 :00 oral route once daily metolazone 2019- No take 1 Acce ss 5 mg tablet 07-26 tablet (5 [facility] 00:00: 00:00 mg) by 00 :00 oral route once daily ProAir HFA 2019- No inhale 2 Ac cess 90 07-26 puffs (180 [facility] mcg/actuati 00:00: 00:00 mcg) by on aerosol 00 :00 inhalation inhaler route every 4 hours as needed carvedilol No take 1 Acce ss 25 mg 07-26 tablet (25 [facility] tablet 00:00: 00:00 mg) by 00 :00 oral route 2 times per day with food clopidogrel No take 1 Acc ess 75 mg 07-26 tablet (75 [facility] tablet 00:00: 00:00 mg) by 00 :00 oral route once daily Humalog inject Access KwikPen 07-26 5-10 Units [facility] (U-100) 00:00: 00:00 by Insulin 100 00 :00 Subcutaneo unit/mL us route 3 subcutaneou times per s day on a sliding scale three times a day before meals ipratropium 2019- No inhale 3 A ccess -albuterol 07-26 milliliter [facility] al[facility] 0.5 mg-3 00:00: 00:00 s by mg(2.5 mg 00 :00 nebulizati base)/3 mL on route 4 nebulizatio times per n soln day and as needed, up to 6 doses per day Requip 0.5 2019- No take 2 Acce ss mg tablet 07-26 tablets by [facility] 00:00: 00:00 Oral route 00 :00 1 time per day 1-3 hours before bedtime for restless legs amlodipine 2019- No take 1 Acce ss 5 mg tablet 07-26 tablet (5 [facility] 00:00: 00:00 mg) by 00 :00 oral route once daily atorvastati 2019- No take 1 Acc ess n 80 mg 07-26 tablet by [facility] tablet 00:00: 00:00 Oral route 00 :00 1 time per day bumetanide 2019- No take 1 Acce ss 1 mg tablet 07-26 tablet (1 [facility] 00:00: 00:00 mg) by 00 :00 oral route 2 times per day isosorbide 2019- No take 1 Acce ss mononitrate 07-26 tablet (60 [facility] ER 60 mg 00:00: 00:00 mg) by tablet,exte 00 :00 oral route nded once daily release 24 in the hr morning Levemir 2019- No inject 34 Acce ss FlexTouch 07-26 Units by [facility] U-100 00:00: 00:00 Subcutaneo Insulin 100 00 :00 us route 2 unit/mL (3 times per mL) day in the subcutaneou morning s pen and evening lisinopril 2019- No take 1 Acce ss 40 mg 07-26 tablet (40 [facility] tablet 00:00: 00:00 mg) by 00 :00 oral route once daily metolazone 2019- No take 1 Acce ss 5 mg tablet 07-26 tablet (5 [facility] al[facility] 00:00: 00:00 mg) by 00 :00 oral route once daily ProAir HFA 2019- No inhale 2 Ac cess 90 07-26 puffs (180 [facility] mcg/actuati 00:00: 00:00 mcg) by on aerosol 00 :00 inhalation inhaler route every 4 hours as needed carvedilol 2019- No take 1 Acce ss 25 mg 07-26 tablet (25 [facility] tablet 00:00: 00:00 mg) by 00 :00 oral route 2 times per day with food clopidogrel 2019- No take 1 Acc ess 75 mg 07-26 tablet (75 [facility] tablet 00:00: 00:00 mg) by 00 :00 oral route once daily Humalog No inject Access KwikPen 07-26 5-10 Units [facility] (U-100) 00:00: 00:00 by Insulin 100 00 :00 Subcutaneo unit/mL us route 3 subcutaneou times per s day on a sliding scale three times a day before meals ipratropium 2019- No inhale 3 A ccess -albuterol 07-26 milliliter [facility] al[facility] 0.5 mg-3 00:00: 00:00 s by mg(2.5 mg 00 :00 nebulizati base)/3 mL on route 4 nebulizatio times per n soln day and as needed, up to 6 doses per day Requip 0.5 2019- No take 2 Acce ss mg tablet 07-26 tablets by [facility] 00:00: 00:00 Oral route 00 :00 1 time per day 1-3 hours before bedtime for restless legs metolazone No 1{table Q2D take 1 Acce ss 2.5 mg t} tablet by [facility] tablet oral route every 2 days metolazone No 1{table Q2D take 1 Acce ss 2.5 mg t} tablet by [facility] tablet oral route every 2 days potassium No 1{table Q1D take 1 Acces s chloride ER t} tablet by [facility] 10 mEq oral route tablet,exte every day nded with food release potassium No 1{table Q1D take 1 Acces s chloride ER t} tablet by [facility] 10 mEq oral route tablet,exte every day nded with food release potassium No 1{table Q1D take 1 Acces s chloride ER t} tablet by [facility] 10 mEq oral route tablet,exte every day nded with food release potassium No 1{table Q1D take 1 Acces s chloride ER t} tablet by [facility] 10 mEq oral route tablet,exte every day nded with food release potassium No 1{table Q1D take 1 Acces s chloride ER t} tablet by [facility] 10 mEq oral route tablet,exte every day nded with food release potassium No 1{table Q1D take 1 Acces s chloride ER t} tablet by [facility] 10 mEq oral route tablet,exte every day nded with food release potassium No 1{table Q1D take 1 Acces s chloride ER t} tablet by [facility] 10 mEq oral route tablet,exte every day nded with food release potassium No 1{table Q1D take 1 Acces s chloride ER t} tablet by [facility] 10 mEq oral route tablet,exte every day nded with food release potassium No 1{table Q1D take 1 Acces s chloride ER t} tablet by [facility] 10 mEq oral route tablet,exte every day nded with food release potassium No 1{table Q1D take 1 Acces s chloride ER t} tablet by [facility] 10 mEq oral route tablet,exte every day nded with food release metolazone No 1{table Q2D take 1 Acce ss 2.5 mg t} tablet by Health tablet oral route every 2 days metolazone No 1{table Q2D take 1 Acce ss 2.5 mg t} tablet by Health tablet oral route every 2 days metolazone 2020- No 1{table Q2D take 1 Acc ess 2.5 mg 04-08 t} tablet by Health tablet 00:00 oral route :00 every 2 days metolazone 2020- No 1{table Q2D take 1 Acc ess 2.5 mg 04-08 t} tablet by Health tablet 00:00 oral route :00 every 2 days metolazone 2020- No 1{table Q2D take 1 Acc ess 2.5 mg 04-08 t} tablet by Health tablet 00:00 oral route :00 every 2 days metolazone 2020- No 1{table Q2D take 1 Acc ess 2.5 mg 04-08 t} tablet by Health tablet 00:00 oral route :00 every 2 days metolazone 2020- No 1{table Q2D take 1 Acc ess 2.5 mg 04-08 t} tablet by Health tablet 00:00 oral route :00 every 2 days metolazone 2020- No 1{table Q2D take 1 Acc ess 2.5 mg 04-08 t} tablet by Health tablet 00:00 oral route :00 every 2 days metolazone 2020- No 1{table Q2D take 1 Acc ess 2.5 mg 04-08 t} tablet by Health tablet 00:00 oral route :00 every 2 days metolazone 2020- No 1{table Q2D take 1 Acc ess 2.5 mg 04-08 t} tablet by Health tablet 00:00 oral route :00 every 2 days metolazone 2020- No 1{table Q2D take 1 Acc ess 2.5 mg 04-08 t} tablet by Health tablet 00:00 oral route :00 every 2 days metolazone 2020- No 1{table Q2D take 1 Acc ess 2.5 mg 04-08 t} tablet by Health tablet 00:00 oral route :00 every 2 days Immunizations Ordered Filled Date Status Comments Source Immunization Name Immunization Name Flu (split) (2020-03-06 Completed Note: Access or older) 00:00:00 Administered Flu Health vaccine without any complications. [facility] 03/06/2020 ; Source: New Immunization Record Flu (split) (2020-03-06 Completed Note: Access or older) 00:00:00 Administered Flu Health vaccine without any complications. [facility] 03/06/2020 ; Source: New Immunization Record Flu (split) (2020-03-06 Completed Note: Access or older) 00:00:00 Administered Flu Health vaccine without any complications. [facility] 03/06/2020 ; Source: New Immunization Record Flu (split) (2020-03-06 Completed Note: Access or older) 00:00:00 Administered Flu Health vaccine without any complications. [facility] 03/06/2020 ; Source: New Immunization Record Flu (split) (2020-03-06 Completed Note: Access or older) 00:00:00 Administered Flu Health vaccine without any complications. [facility] 03/06/2020 ; Source: New Immunization Record Flu (split) (2020-03-06 Completed Note: Access or older) 00:00:00 Administered Flu Health vaccine without any complications. [facility] 03/06/2020 ; Source: New Immunization Record Flu (split) (2020-03-06 Completed Note: Access or older) 00:00:00 Administered Flu Health vaccine without any complications. [facility] 03/06/2020 ; Source: New Immunization Record Flu (split) (2020-03-06 Completed Note: Access or older) 00:00:00 Administered Flu Health vaccine without any complications. [facility] 03/06/2020 ; Source: New Immunization Record Flu (split) (2020-03-06 Completed Note: Access or older) 00:00:00 Administered Flu Health vaccine without any complications. [facility] 03/06/2020 ; Source: New Immunization Record Flu (split) (2020-03-06 Completed Note: Access or older) 00:00:00 Administered Flu Health vaccine without any complications. [facility] 03/06/2020 ; Source: New Immunization Record Flu (split) (2020-03-06 Completed Note: Access or older) 00:00:00 Administered Flu Health vaccine without any complications. [facility] 03/06/2020 ; Source: New Immunization Record Flu (split) (2020-03-06 Completed Note: Access or older) 00:00:00 Administered Flu Health vaccine without any complications. [facility] 03/06/2020 ; Source: New Immunization Record Flu (split) (2020-03-06 Completed Note: Access or older) 00:00:00 Administered Flu Health vaccine without any complications. [facility] 03/06/2020 ; Source: New Immunization Record Flu (split) (2020-03-06 Completed Note: Access or older) 00:00:00 Administered Flu Health vaccine without any complications. [facility] 03/06/2020 ; Source: New Immunization Record Flu (split) (2020-03-06 Completed Note: Access or older) 00:00:00 Administered Flu Health vaccine without any complications. [facility] 03/06/2020 ; Source: New Immunization Record Flu (split) (2020-03-06 Completed Note: Access or older) 00:00:00 Administered Flu Health vaccine without any complications. [facility] 03/06/2020 ; Source: New Immunization Record Influenza 2017-12-20 Completed Note: FLU VACC 4 Access 00:00:00 JAMIL 3 YRS PLUS IM [facility] By [facility] ; Source: New Immunization Record Influenza 2017-12-20 Completed Note: FLU VACC 4 Access 00:00:00 JAMIL 3 YRS PLUS IM [facility] By [facility] ; Source: New Immunization Record Influenza 2017-12-20 Completed Note: FLU VACC 4 Access 00:00:00 JAMIL 3 YRS PLUS [facility] By [facility] ; Source: New Immunization Record Influenza 2017-12-20 Completed Note: FLU VACC 4 Access 00:00:00 JAMIL 3 YRS [facility]US [facility] By [facility] ; Source: New Immunization Record Influenza 2017-12-20 Completed Note: FLU VACC 4 Access 00:00:00 JAMIL 3 YRS PLUS [facility] By [facility] ; Source: New Immunization Record Influenza 2017-12-20 Completed Note: FLU VACC 4 Access 00:00:00 JAMIL 3 YRS PLUS IM [facility] By [facility] ; Source: New Immunization Record Influenza 2017-12-20 Completed Note: FLU VACC 4 Access 00:00:00 JAMIL 3 YRS [facility]US [facility] By [facility] ; Source: New Immunization Record Influenza 2017-12-20 Completed Note: FLU VACC 4 Access 00:00:00 JAMIL 3 YRS PLUS [facility] By [facility] ; Source: New Immunization Record Influenza 2017-12-20 Completed Note: FLU VACC 4 Access 00:00:00 JAMIL 3 YRS PLUS [facility] By [facility] ; Source: New Immunization Record Influenza 2017-12-20 Completed Note: FLU VACC 4 Access 00:00:00 JAMIL 3 YRS [facility]US [facility] By [facility] ; Source: New Immunization Record Influenza 2017-12-20 Completed Note: FLU VACC 4 Access 00:00:00 JAMIL 3 YRS [facility]US [facility] By [facility] ; Source: New Immunization Record Influenza 2017-12-20 Completed Note: FLU VACC 4 Access 00:00:00 JAMIL 3 YRS [facility]US [facility] By [facility] ; Source: New Immunization Record Influenza 2017-12-20 Completed Note: FLU VACC 4 Access 00:00:00 JAMIL 3 YRS [facility]US [facility] By [facility] ; Source: New Immunization Record Influenza 2017-12-20 Completed Note: FLU VACC 4 Access 00:00:00 JAMIL 3 YRS [facility]US [facility] By [facility] ; Source: New Immunization Record Influenza 2017-12-20 Completed Note: FLU VACC 4 Access 00:00:00 JAMIL 3 YRS [facility]US [facility] By [facility] ; Source: New Immunization Record Influenza 2017-12-20 Completed Note: FLU VACC 4 Access 00:00:00 JAMIL 3 YRS [facility]US [facility] By [facility] ; Source: New Immunization Record Influenza 2017-12-20 Completed Note: FLU VACC 4 Access 00:00:00 JAMIL 3 YRS PLUS IM [facility] By [facility] ; Source: New Immunization Record Influenza 2017-03-[address] [facility] Three-TIV PF 5+ YR 00:00:00 - [facility] Influenza 2017-03-[address] [facility] Three-TIV PF 5+ YR 00:00:00 - [facility] Influenza 2017-03-[address] [facility] Three-TIV PF 5+ YR 00:00:00 - [facility] Influenza 2017-03-[address] [facility] Three-TIV PF 5+ YR 00:00:00 - [facility] Influenza 2017-03-[address] [facility] Three-TIV PF 5+ YR 00:00:00 - [facility] Influenza 2017-03-[address] [facility] Three-TIV PF 5+ YR 00:00:00 - [facility] Influenza 2017-03-[address] [facility] Three-TIV PF 5+ YR 00:00:00 - [facility] Vital Signs Vital Name Observation Time Observation Value Comments Source WEIGHT 2020-09-23 13:36:00 125.646 kg HEIGHT 2020-09-22 14:00:00 177.8 cm WEIGHT 2020-09-22 14:00:00 126.6 kg HEIGHT 2020-09-22 06:24:00 177.8 cm WEIGHT 2020-09-22 06:24:00 126.554 kg WEIGHT 2020-09-23 13:36:00 125.646 kg HEIGHT 2020-09-22 14:00:00 177.8 cm WEIGHT 2020-09-22 14:00:00 126.6 kg HEIGHT 2020-09-22 06:24:00 177.8 cm WEIGHT 2020-09-22 06:24:00 126.554 kg HEIGHT 2020-04-30 18:14:00 172.7 cm WEIGHT 2020-04-30 18:14:00 124.739 kg HEIGHT 2020-04-30 18:14:00 172.7 cm WEIGHT 2020-04-30 18:14:00 124.739 kg HEIGHT 2020-03-30 19:35:00 177.8 cm WEIGHT 2020-03-30 19:35:00 122.471 kg HEIGHT 2020-03-30 19:35:00 177.8 cm WEIGHT 2020-03-30 19:35:00 122.471 kg HEIGHT 2020-03-19 23:33:00 177.8 cm WEIGHT 2020-03-19 23:33:00 123.832 kg HEIGHT 2020-03-19 23:33:00 177.8 cm WEIGHT 2020-03-19 23:33:00 123.832 kg HEIGHT 2019 00:00:00 177.8 cm WEIGHT 2019 00:00:00 121.11 kg HEIGHT 2019 00:00:00 177.8 cm WEIGHT 2019 00:00:00 121.11 kg Body height 2021-01-29 09:34:00 172.72 cm [facility] Body Weight 2021-01-29 09:34:00 112.672 kg [facility] Systolic 2021-01-29 09:34:00 126 mm[Hg] [facility] Intrav[facility] 2021-01-29 09:34:00 76 mm[Hg] [facility] Diastolic Heart Beat 2021-01-29 09:34:00 89 /min [facility] Body Temperature 2021-01-29 09:34:00 36.28 [facility] Respiratory Rate 2021-01-29 09:34:00 18 /min [facility] Body mass index 2021-01-29 09:34:00 37.77 kg/m2 [facility] Body height 2020-12-03 08:35:00 172.72 cm [facility] Patient Body Weight 2020-12-03 08:35:00 109.406 kg [facility] Systolic 2020-12-03 08:35:00 121 mm[Hg] [facility] 2020-12-03 08:35:00 79 mm[Hg] [facility] Diastolic Heart Beat 2020-12-03 08:35:00 80 /min [facility] Body Temperature 2020-12-03 08:35:00 36.33 [facility] Respiratory Rate 2020-12-03 08:35:00 18 /min [facility] Body mass index 2020-12-03 08:35:00 36.67 kg/m2 [facility] Body height 2020-10-29 08:12:00 172.72 cm [facility] Patient Body Weight 2020-10-29 08:12:00 117.480 kg [facility] Systolic 2020-10-29 08:12:00 102 mm[Hg] [facility] 2020-10-29 08:12:00 67 mm[Hg] [facility] Diastolic Heart Beat 2020-10-29 08:12:00 72 /min [facility] Body Temperature 2020-10-29 08:12:00 36.28 [facility] Respiratory Rate 2020-10-29 08:12:00 18 /min [facility] Body mass index 2020-10-29 08:12:00 39.38 kg/m2 [facility] Heart rate 2020-09-29 08:55:00 76 /min [facility] Respiratory rate 2020-09-29 08:55:00 18 /min [facility] Oxygen saturation in 2020-09-29 08:55:00 97 /min [facility] Arterial blood by Medical Ce nter Pulse oximetry Systolic blood 2020-09-29 04:00:00 134 mm[Hg] [facility] Diastolic blood 2020-09-29 04:00:00 76 mm[Hg] [facility] Body temperature 2020-09-29 04:00:00 37 Bernarda [facility] Body weight 2020-09-23 13:36:00 125.646 kg [facility] BMI 2020-09-23 13:36:00 39.75 kg/m2 [facility] Body height 2020-09-22 14:00:00 177.8 cm [facility] Body height 2020-09-17 10:27:00 172.72 [facility] Body Weight 2020-09-17 10:27:00 129.365 kg [facility] Systolic 2020-09-17 10:27:00 122 mm[Hg] [facility] 2020-09-17 10:27:00 71 mm[Hg] [facility] Diastolic Heart Beat 2020-09-17 10:27:00 82 /min [facility] Body Temperature 2020-09-17 10:27:00 36.56 [facility] Respiratory Rate 2020-09-17 10:27:00 18 /min [facility] Body mass index 2020-09-17 10:27:00 43.36 [facility] Body height 2020-08-15 15:21:00 172.72 cm [facility] Body Weight 2020-08-15 15:21:00 122.016 kg [facility] Systolic 2020-08-15 15:21:00 165 mm[Hg] [facility] 2020-08-15 15:21:00 97 mm[Hg] [facility] Diastolic Heart Beat 2020-08-15 15:21:00 86 /min [facility] Body Temperature 2020-08-15 15:21:00 36.28 [facility] Respiratory Rate 2020-08-15 15:21:00 18 /min [facility] Body mass index 2020-08-15 15:21:00 40.90 kg/m2 [facility] Body height 2020-04-26 09:59:00 172.72 cm [facility] Body Weight 2020-04-26 09:59:00 123.740 kg [facility] Systolic 2020-04-26 09:59:00 120 mm[Hg] [facility] 2020-04-26 09:59:00 66 mm[Hg] [facility] Diastolic Heart Beat 2020-04-26 09:59:00 85 /min [facility] Body Temperature 2020-04-26 09:59:00 36.11 [facility] Respiratory Rate 2020-04-26 09:59:00 18 /min [facility] Body mass index 2020-04-26 09:59:00 41.48 kg/m2 [facility] Body height 2020-03-06 14:18:00 172.72 cm [facility] Body Weight 2020-03-06 14:18:00 123.740 kg [facility] Systolic 2020-03-06 14:18:00 115 mm[Hg] [facility] 2020-03-06 14:18:00 71 mm[Hg] [facility] Diastolic Heart Beat 2020-03-06 14:18:00 73 /min [facility] Body Temperature 2020-03-06 14:18:00 36.22 [facility] Respiratory Rate 2020-03-06 14:18:00 18 /min [facility] Body mass index 2020-03-06 14:18:00 41.48 kg/m2 [facility] Body height 2019-11-09 16:08:00 172.72 cm [facility] Body Weight 2019-11-09 16:08:00 118.932 kg [facility] Systolic 2019-11-09 16:08:00 124 mm[Hg] [facility] 2019-11-09 16:08:00 81 mm[Hg] [facility] Diastolic Heart Beat 2019-11-09 16:08:00 66 /min [facility] Body Temperature 2019-11-09 16:08:00 36.50 [facility] Respiratory Rate 2019-11-09 16:08:00 18 /min [facility] Body mass index 2019-11-09 16:08:00 39.87 kg/m2 [facility] Body height 2019-07-03 10:14:00 172.72 cm [facility] Body Weight 2019-07-03 10:14:00 121.381 kg [facility] Systolic 2019-07-03 10:14:00 128 mm[Hg] [facility] 2019-07-03 10:14:00 77 mm[Hg] [facility] Diastolic Heart Beat 2019-07-03 10:14:00 85 /min [facility] Body Temperature 2019-07-03 10:14:00 36.94 [facility] Body mass index 2019-07-03 10:14:00 40.69 kg/m2 [facility] Sy[facility]olic 2019-04-04 15:01:00 160 mm[Hg] [facility] 2019-04-04 15:01:00 101 mm[Hg] [facility] Diastolic Heart Beat 2019-04-04 15:01:00 82 /min [facility] Body height 2019-04-04 14:21:00 172.72 cm [facility] Patient Body Weight 2019-04-04 14:21:00 119.295 kg [facility] Sy[facility] 2019-04-04 14:21:00 161 mm[Hg] [facility] 2019-04-04 14:21:00 113 mm[Hg] [facility] Diastolic Heart Beat 2019-04-04 14:21:00 88 /min [facility] Body Temperature 2019-04-04 14:21:00 36.78 [facility] Respiratory Rate 2019-04-04 14:21:00 18 /min [facility] Body mass index 2019-04-04 14:21:00 39.99 kg/m2 [facility] Body height 2018-09-06 09:34:00 68.00 [in_us] [facility] Patient Body Weight 2018-09-06 09:34:00 267.60 [lb_av] [facility] Systolic 2018-09-06 09:34:00 107 mm[Hg] [facility] 2018-09-06 09:34:00 70 mm[Hg] [facility] Diastolic Heart Beat 2018-09-06 09:34:00 72 /min [facility] Body Temperature 2018-09-06 09:34:00 98.00 [degF] [facility] Respiratory Rate 2018-09-06 09:34:00 18 /min [facility] Body mass index 2018-09-06 09:34:00 40.70 kg/m2 [facility] Body height 2018-07-26 15:37:00 68.00 [in_us] [facility] Patient Body Weight 2018-07-26 15:37:00 263.00 [lb_av] [facility] Systolic 2018-07-26 15:37:00 150 mm[Hg] [facility] 2018-07-26 15:37:00 96 mm[Hg] [facility] Diastolic Heart Beat 2018-07-26 15:37:00 73 /min [facility] Body Temperature 2018-07-26 15:37:00 98.10 [degF] [facility] Respiratory Rate 2018-07-26 15:37:00 18 /min [facility] Body mass index 2018-07-26 15:37:00 40.00 kg/m2 [facility] Body height 2018-03-30 13:09:00 68.00 [in_us] [facility] Patient Body Weight 2018-03-30 13:09:00 261.40 [lb_av] [facility] Systolic 2018-03-30 13:09:00 136 mm[Hg] [facility] 2018-03-30 13:09:00 80 mm[Hg] [facility] Diastolic Heart Beat 2018-03-30 13:09:00 74 /min [facility] Body Temperature 2018-03-30 13:09:00 97.60 [degF] [facility] Respiratory Rate 2018-03-30 13:09:00 18 /min [facility] Body mass index 2018-03-30 13:09:00 39.70 kg/m2 [facility] Body height 2017-12-20 07:28:00 68.00 [in_us] [facility] Patient Body Weight 2017-12-20 07:28:00 277.60 [lb_av] [facility] Systolic 2017-12-20 07:28:00 157 mm[Hg] [facility] 2017-12-20 07:28:00 88 mm[Hg] [facility] Diastolic Heart Beat 2017-12-20 07:28:00 74 /min [facility] Body Temperature 2017-12-20 07:28:00 97.50 [degF] [facility] Respiratory Rate 2017-12-20 07:28:00 18 /min [facility] Body mass index 2017-12-20 07:28:00 42.20 kg/m2 [facility] Systolic 2017-07-14 09:14:00 152 mm[Hg] [facility] 2017-07-14 09:14:00 90 mm[Hg] [facility] Diastolic Body height 2017-07-14 09:04:00 68.00 [in_us] [facility] Patient Body Weight 2017-07-14 09:04:00 267.20 [lb_av] [facility] Systolic 2017-07-14 09:04:00 182 mm[Hg] [facility] 2017-07-14 09:04:00 102 mm[Hg] [facility] Diastolic Heart Beat 2017-07-14 09:04:00 100 /min [facility] Body Temperature 2017-07-14 09:04:00 208.20 [degF] [facility] Respiratory Rate 2017-07-14 09:04:00 20 /min [facility] Body mass index 2017-07-14 09:04:00 40.60 kg/m2 [facility] Body height 2017-06-10 08:27:00 68.00 [in_us] [facility] Patient Body Weight 2017-06-10 08:27:00 297.20 [lb_av] [facility] Systolic 2017-06-10 08:27:00 140 mm[Hg] [facility] 2017-06-10 08:27:00 95 mm[Hg] [facility] Diastolic Heart Beat 2017-06-10 08:27:00 66 /min [facility] Body Temperature 2017-06-10 08:27:00 98.50 [degF] [facility] Respiratory Rate 2017-06-10 08:27:00 18 /min [facility] Body mass index 2017-06-10 08:27:00 45.20 kg/m2 [facility] Body height 2017-04-09 13:28:00 68.00 [in_us] [facility] Patient Body Weight 2017-04-09 13:28:00 272.20 [lb_av] [facility] Systolic 2017-04-09 13:28:00 137 mm[Hg] [facility] 2017-04-09 13:28:00 85 mm[Hg] [facility] Diastolic Heart Beat 2017-04-09 13:28:00 64 /min [facility] Body Temperature 2017-04-09 13:28:00 97.90 [degF] [facility] Respiratory Rate 2017-04-09 13:28:00 18 /min [facility] Body mass index 2017-04-09 13:28:00 41.40 kg/m2 [facility] Body height 2017-02-09 14:42:00 68.00 [in_us] [facility] Patient Body Weight 2017-02-09 14:42:00 258.00 [lb_av] [facility] Systolic 2017-02-09 14:42:00 151 mm[Hg] [facility] 2017-02-09 14:42:00 83 mm[Hg] [facility] Diastolic Heart Beat 2017-02-09 14:42:00 81 /min [facility] Body Temperature 2017-02-09 14:42:00 98.10 [degF] [facility] Respiratory Rate 2017-02-09 14:42:00 18 /min [facility] Body mass index 2017-02-09 14:42:00 39.20 kg/m2 [facility] Systolic 2016-08-03 16:13:00 131 mm[Hg] [facility] 2016-08-03 16:13:00 74 mm[Hg] [facility] Diastolic Heart Beat 2016-08-03 16:13:00 76 /min [facility] Body height 2016-07-16 08:27:00 68.00 [in_us] [facility] Patient Body Weight 2016-07-16 08:27:00 252.20 [lb_av] [facility] Systolic 2016-07-16 08:27:00 176 mm[Hg] [facility] 2016-07-16 08:27:00 102 mm[Hg] [facility] Diastolic Heart Beat 2016-07-16 08:27:00 68 /min [facility] Body Temperature 2016-07-16 08:27:00 98.90 [degF] [facility] Respiratory Rate 2016-07-16 08:27:00 18 /min [facility] Body mass index 2016-07-16 08:27:00 38.30 kg/m2 [facility] Body height 2016-03-26 14:36:00 68.00 [in_us] [facility] Patient Body Weight 2016-03-26 14:36:00 277.80 [lb_av] [facility] Systolic 2016-03-26 14:36:00 162 mm[Hg] [facility] 2016-03-26 14:36:00 91 mm[Hg] [facility] Diastolic Heart Beat 2016-03-26 14:36:00 71 /min [facility] Body Temperature 2016-03-26 14:36:00 98.70 [degF] [facility] Respiratory Rate 2016-03-26 14:36:00 18 /min [facility] Body mass index 2016-03-26 14:36:00 42.20 kg/m2 [facility] Body height 2016-01-21 11:10:00 68.00 [in_us] [facility] Patient Body Weight 2016-01-21 11:10:00 256.00 [lb_av] [facility] Systolic 2016-01-21 11:10:00 186 mm[Hg] [facility] 2016-01-21 11:10:00 96 mm[Hg] [facility] Diastolic Heart Beat 2016-01-21 11:10:00 68 /min [facility] Body Temperature 2016-01-21 11:10:00 98.80 [degF] [facility] Respiratory Rate 2016-01-21 11:10:00 18 /min [facility] Body mass index 2016-01-21 11:10:00 38.90 kg/m2 [facility] Body height 2015-09-26 14:28:00 68.00 [in_us] [facility] Patient Body Weight 2015-09-26 14:28:00 254.00 [lb_av] [facility] Systolic 2015-09-26 14:28:00 186 mm[Hg] [facility] 2015-09-26 14:28:00 96 mm[Hg] [facility] Diastolic Heart Beat 2015-09-26 14:28:00 61 /min [facility] Body Temperature 2015-09-26 14:28:00 98.70 [degF] [facility] Respiratory Rate 2015-09-26 14:28:00 18 [facility] 2015-09-26 14:28:00 38.60 kg/m2 [facility] Systolic 2015-05-03 16:39:00 180 mm[Hg] [facility] 2015-05-03 16:39:00 104 mm[Hg] [facility] Diastolic Body height 2015-05-03 15:36:00 68.00 [in_us] [facility] Patient Body Weight 2015-05-03 15:36:00 245.00 [lb_av] [facility] Systolic 2015-05-03 15:36:00 195 mm[Hg] [facility] 2015-05-03 15:36:00 100 mm[Hg] [facility] Diastolic Heart Beat 2015-05-03 15:36:00 75 /min [facility] Body Temperature 2015-05-03 15:36:00 97.90 [degF] [facility] Respiratory Rate 2015-05-03 15:36:00 20 [facility] Body mass index 2015-05-03 15:36:00 37.20 kg/m2 [facility] Procedures Procedure Date / Time Performing Clinician Source Performed OFFICE/OUTPATIENT VISIT 2021-01-29 00:[facility] COMPREHEN METABOLIC PANEL 2021-01-29 00:00:00 [facility] URINALYSIS AUTO W/SCOPE 2021-01-29 00:00:00 [facility] UR ALBUMIN QUANTITATIVE 2021-01-29 00:00:00 [facility] GLYCOSYLATED HEMOGLOBIN 2021-01-29 00:00:00 [facility] TEST VITAMIN D 25 HYDROXY 2021-01-29 00:00:00 [facility] ASSAY OF NATRIURETIC 2021-01-29 00:00:00 [facility] PEPTIDE ASSAY OF BLOOD/URIC ACID 2021-01-29 00:00:00 [facility] ASSAY OF PHOSPHORUS 2021-01-29 00:00:00 [facility] RBC SED RATE AUTOMATED 2021-01-29 00:00:00 [facility] ASSAY OF MAGNESIUM 2021-01-29 00:00:00 [facility] C-REACTIVE PROTEIN 2021-01-29 00:00:00 [facility] GLUCOSE BLOOD TEST 2020-12-03 00:00:00 [facility] OFF[facility]/OUTPATIENT VISIT 2020-12-03 [facility] Insulin [facility] 2020-12-03 00:00:00 [facility] THER/PROPH/DIAG INJ SC/IM 2020-12-03 00:00:00 [facility] COMPREHEN METABOLIC PANEL 2020-12-03 00:00:00 [facility] ASSAY OF NATRIURETIC 2020-12-03 00:00:00 [facility] PEPTIDE ASSAY OF PHOSPHORUS 2020-12-03 00:00:00 [facility] GLUCOSE BLOOD TEST 2020-10-29 00:00:00 [facility] OFF[facility]/OUTPATIENT VISIT 2020-10-29 [facility] COMPLETE CBC W/AUTO DIFF 2020-10-29 00:00:00 [facility] WBC COMPREHEN METABOLIC PANEL 2020-10-29 00:00:00 [facility] URINALYSIS AUTO W/SCOPE 2020-10-29 00:00[facility] LIPID PANEL 2020-10-29 00:00:00 [facility] GLYCOSYLATED HEMOGLOBIN 2020-10-29 [facility] TEST VITAMIN D 25 HYDROXY 2020-10-29 00:00:00 [facility] ASSAY OF NATRIURETIC 2020-10-29 00:00:00 [facility] PEPTIDE ASSAY OF MAGNESIUM 2020-10-29 00:00:00 [facility] ASSAY OF PARATHORMONE 2020-10-29 00:00:00 [facility] HAND, MINIMUM THREE VIEWS, 2020-10-29 00:00:00 A [facility] RADIOLOGIC EXAM CBC W/PLT COUNT & AUTO 2020-09-29 04:29:00 [facility] BASIC METABOLIC PANEL (7) 2020-09-29 04:29:00 Gretchen Hensley [facility] MAGNESIUM 2020-09-29 04:29:00 Ayden Gretchen [facility] CBC W/PLT COUNT & AUTO 2020-09-29 04:29:00 Ayden Gretchen [facility] POCT-GLUCOSE METER 2020-09-28 17:27:00 Shieh [facility] POCT-GLUCOSE METER 2020-09-28 12:49:00 Shieh [facility] POCT-GLUCOSE METER 2020-09-28 05:58:00 Shieh, [facility] CBC W/PLT COUNT & AUTO 2020-09-28 04:49:00 Gretchen Hensley [facility] BASIC METABOLIC PANEL (7) 2020-09-28 04:49:00 Gretchen Hensley [facility] MAGNESIUM 2020-09-28 04:49:00 Shala Hensleyia [facility] CBC W/PLT COUNT & AUTO 2020-09-28 04:49:00 Ayden Gretchen [facility] POCT-GLUCOSE METER 2020-09-27 20:57:00 Shieh [facility] POCT-GLUCOSE METER 2020-09-27 19:07:00 Shieh, [facility] POCT-GLUCOSE METER 2020-09-27 12:26:00 Shieh [facility] POCT-GLUCOSE METER 2020-09-27 06:36:00 Shieh, [facility] CBC W/PLT COUNT & AUTO 2020-09-27 03:45:00 Gretchen Hensley [facility] BASIC METABOLIC PANEL (7) 2020-09-27 03:45:00 Gretchen Hensley [facility] MAGNESIUM 2020-09-27 03:45[facility] & AUTO 2020-09-27 03:45:00 Gretchen Hensley [facility] POCT-GLUCOSE METER 2020-09-26 23:12:00 [facility] POCT-GLUCOSE METER 2020-09-26 18:20:00 [facility] POCT-GLUCOSE METER 2020-09-26 13:31:00 [facility] XR FOOT 3 VIEWS LEFT 2020-09-26 08:38:00 Laura Nguyen [facility] POCT-GLUCOSE METER 2020-09-26 08:34:00 [facility] ANAEROBIC CULTURE 2020-09-26 08:07:57 Laura Nguyen [facility] SURGICALLY OBTAINED 2020-09-26 08:07:57 Laura Nguyen [facility] - CULTURE + GRAM STAIN [facility] ANAEROBIC CULTURE 2020-09-26 08:02:39 Laura Nguyen [facility] SURGICALLY OBTAINED 2020-09-26 08:02:39 Laura Nguyen [facility] - CULTURE + GRAM STAIN [facility] TISSUE EXAM 2020-09-26 07:56:00 Laura Nguyen [facility] AMPUTATION,TOE 2020-09-26 07:12:00 Laura Nguyen [facility] CBC W/PLT COUNT & AUTO 2020-09-26 04:37:00 Gretchen Hensley [facility] BASIC METABOLIC PANEL (7) 2020-09-26 04:37:00 Gretchen Hensley [facility] MAGNESIUM 2020-09-26 04:37:00 Gretchen Hensley [facility] B-TYPE NATRIURETIC FACTOR 2020-09-26 04:37:00 Yoni Lugo [facility] (BNP) [facility] CBC W/PLT COUNT & AUTO 2020-09-26 04:37:00 Gretchen Hensley [facility] POCT-GLUCOSE METER 2020-09-25 21:10:00 Yoni Lugo [facility] POCT-GLUCOSE METER 2020-09-25 16:15:00 [facility] POCT-GLUCOSE METER 2020-09-25 11:21:00 [facility] POCT-GLUCOSE METER 2020-09-25 06:02:00 Ayden [facility] CBC W/PLT COUNT & AUTO 2020-09-25 04:44:[facility]OLIC [facility] (7) 2020-09-25 04:44:00 [facility] 2020-09-25 04:44:[address] [facility] CBC W/PLT COUNT & AUTO 2020-09-25 04:44:00 Ayden [facility] POCT-GLUCOSE METER 2020-09-24 20:36:00 Ayden [facility] POCT-GLUCOSE METER 2020-09-24 17:37:00 [facility] HC ARTERIAL DOPPLER LEGS 2020-09-24 13:22:[address] [facility] POCT-GLUCOSE METER 2020-09-24 06:34:00 Ayden [facility] CBC W/PLT COUNT & AUTO 2020-09-24 05:11:00 [facility] BASIC METABOLIC PANEL (7) 2020-09-24 05:11:00 [facility] 2020-09-24 05:11:00 [facility] PTH, INTACT 2020-09-24 05:11:00 Nneka [facility] VITAMIN D, 25-HYDROXY 2020-09-24 05:11:00 NnekaRene [facility] CBC W/PLT COUNT & AUTO 2020-09-24 05:11:00 Ayden [facility] IRON, TIBC, % SAT. 2020-09-24 05:10:00 Nneka, [facility] (WITHOUT FERRITIN) [facility] FERRITIN 2020-09-24 05:10:00 Nneka, [facility] POCT-GLUCOSE METER 2020-09-23 21:25:00 Ayden [facility] US RENAL COMPLETE 2020-09-23 20:30:00 Nneka, [facility] URINALYSIS W/ REFLEX URINE 2020-09-23 16:58:00 Nneka, mxa [facility] CULTURE [facility] SODIUM, RANDOM URINE 2020-09-23 16:58:00 Nneka, [facility] CHLORIDE, RANDOM URINE 2020-09-23 16:58:00 Nneka, [facility] Vikash CH I [facility] POTASSIUM, RANDOM URINE 2020-09-23 16:58:00 Nneka, max [facility] UREA NITROGEN, RANDOM 2020-09-23 16:58:00 Nneka, [facility] URINE [facility] CREATININE, RANDOM URINE 2020-09-23 16:58:00 Nneka, [facility] PROTEIN, RANDOM URINE 2020-09-23 16:58:00 Nneka, [facility] POCT-GLUCOSE METER 2020-09-23 16:20:00 Ayden [facility] POCT-GLUCOSE METER 2020-09-23 11:40:00 Ayden [facility] 2D ECHO W/ DOPPLER 2020-09-23 08:00:54 Ayden [facility] (CW/PW/COLOR) [facility] POCT-GLUCOSE METER 2020-09-23 07:58:00 [facility] X[facility] FOOT 3 VIEWS LEFT 2020-09-23 07:33:00 Laura Nguyen [facility] CBC W/PLT COUNT & AUTO 2020-09-23 04:51:00 [facility] BASIC METABOLIC PANEL (7) 2020-09-23 04:51:00 HensleyGretchen I [facility] MAGNESIUM 2020-09-23 04:51:[address] [facility] PHOSPHORUS 2020-09-23 04:51:00 [facility] CBC W/PLT COUNT & AUTO 2020-09-23 04:51:00 [facility] POCT-GLUCOSE METER 2020-09-22 20:46:00 [facility] POCT-GLUCOSE METER 2020-09-22 17:01:00 Ayden [facility] SARS-COV2/RT-PCR [facility] 2020-09-22 10:50:00 Ayden [facility] REF LABS) [facility] B-TYPE NATRIURETIC FACTOR 2020-09-22 06:54:00 David Riddle [facility] (BNP) [facility] BASIC METABOLIC PANEL (7) 2020-09-22 06:54:00 David Riddle [facility] CBC W/PLT COUNT & AUTO 2020-09-22 06:54:00 David Riddle [facility] PT/APTT 2020-09-22 06:54:00 David Riddle [facility] TROPONIN I 2020-09-22 06:54:00 David Riddle [facility] CBC W/PLT COUNT & AUTO 2020-09-22 06:54:00 David Riddle [facility] ED ECG INTERPRETATION 2020-09-22 06:40:53 David Riddle [facility] XR CHEST 1 VIEW PORTABLE / 2020-09-22 06:36:00 David Riddle [facility] REPORT OF PROCEDURE - 2020-09-22 00:00:00 ProviderMolina [facility] ENDOSCOPY SCAN Scanning [facility] GLUCOSE BLOOD TEST 2020-09-17 00:00:00 [facility] OFFICE/OUTPATIENT VISIT 2020-09-17 00:00:00 [facility] EST GLUCOSE BLOOD TEST 2020-08-15 00:00:00 [facility] OFFICE/OUTPATIENT VISIT 2020-08-15 00:00:00 [facility] EST COMPREHEN METABOLIC PANEL 2020-08-15 00:00:00 [facility] LIPID PANEL 2020-08-15 00:00:00 [facility] GLYCOSYLATED HEMOGLOBIN 2020-08-15 00:00:00 [facility] TEST ASSAY OF NATRIURETIC 2020-08-15 00:00:00 [facility] PEPTIDE CBC W/PLT COUNT & AUTO 2020-04-30 18:40:00 David Riddle [facility] LACTIC ACID, VENOUS 2020-04-30 18:40:00 David Riddle [facility] COMPREHENSIVE METABOLIC 2020-04-30 18:40:00 David Riddle [facility] PROTHROMBIN TIME/INR 2020-04-30 18:40:00 David Riddle [facility] TYPE AND SCREEN, AUTOMATED 2020-04-30 18:40:00 David Riddle [facility] CBC W/PLT COUNT & AUTO 2020-04-30 18:40:00 David Riddle [facility] GLUCOSE BLOOD TEST 2020-04-26 00:00:00 [facility] OFFICE/OUTPATIENT VISIT 2020-04-26 00:00:00 [facility] EST POCT-GLUCOSE METER 2020-04-06 08:02:00 Frandy Lugo [facility] BASIC METABOLIC PANEL (7) 2020-04-06 04:26:00 Frandy Lugo [facility] CBC W/PLT COUNT & AUTO 2020-04-06 04:26:00 Frandy Lugo [facility] CBC W/PLT COUNT & AUTO 2020-04-06 04:26:00 Frandy Lugo [facility] POCT-GLUCOSE METER 2020-04-05 22:06:00 Frandy Lugo [facility] POCT-GLUCOSE METER 2020-04-05 15:18:00 Frandy Lugo [facility] POCT-GLUCOSE METER 2020-04-05 11:37:00 Frandy Lugo [facility] IR PICC LINE PLACEMENT 2020-04-05 11:14:00 Frandy Lugo [facility] OLDER THAN 3 YRS [facility] POCT-GLUCOSE METER 2020-04-05 09:23:00 Frandy Lugo [facility] POCT-GLUCOSE METER 2020-04-05 07:59:00 Frandy Lugo [facility] BASIC METABOLIC PANEL (7) 2020-04-05 04:40:00 Frandy Lugo [facility] CBC W/PLT COUNT & AUTO 2020-04-05 04:40:00 ShiFrandy wood [facility] CBC W/PLT COUNT & AUTO 2020-04-05 04:40:00 Frandy Lugo [facility] VANCOMYCIN LEVEL, TROUGH 2020-04-04 23:37:00 Stephane Echavarria [facility] POCT-GLUCOSE METER 2020-04-04 21:14:00 Frandy Lugo [facility] POCT-GLUCOSE METER 2020-04-04 15:41:00 ShiFrandy wood [facility] POCT-GLUCOSE METER 2020-04-04 11:36:00 Frandy Lugo [facility] POCT-GLUCOSE METER 2020-04-04 07:45:00 Frandy Lugo [facility] PROTEIN ELECTROPHORESIS, 2020-04-04 05:23:00 Keven Tiwari [facility] PTH, INTACT 2020-04-04 05:23:00 Ajmal, Baca [facility] BASIC METABOLIC PANEL (7) 2020-04-04 05:23:00 Frandy Lugo [facility] CBC W/PLT COUNT & AUTO 2020-04-04 05:23:00 Frandy Lugo [facility] CBC W/PLT COUNT & AUTO 2020-04-04 05:23:00 Frandy Lugo [facility] POCT-GLUCOSE METER 2020-04-03 21:31:00 Frandy Lugo [facility] KAPPA / LAMBDA LIGHT 2020-04-03 17:10:00 Te Baca [facility], SERUM [facility] HC LAB HIV-1 AG W/HIV-1&2 2020-04-03 17:10:00 Keven Tiwari [facility] HEPATITIS PANEL, ACUTE 2020-04-03 17:10:00 Keven Tiwari [facility] CBC W/PLT COUNT & AUTO 2020-04-03 17:10:00 Te Baca [facility] BASIC METABOLIC PANEL (7) 2020-04-03 17:10:00 Frandy Lugo [facility] CBC W/PLT COUNT & AUTO 2020-04-03 17:10:00 Keven Tiwari [facility] POCT-GLUCOSE METER 2020-04-03 16:05:00 Frandy Lugo [facility] POCT-GLUCOSE METER 2020-04-03 11:34:00 Frandy Lugo [facility] PROTEIN, RANDOM URINE 2020-04-03 10:52:00 Te Baca [facility] SODIUM, RANDOM URINE 2020-04-03 10:39:00 Frandy Lugo [facility] CREATININE, RANDOM URINE 2020-04-03 10:39:00 Frandy Lugo [facility] UREA NITROGEN, RANDOM 2020-04-03 10:39:00 Frandy Lugo [facility] URINE [facility] URINALYSIS W/ MICROSCOPIC 2020-04-03 10:39:00 Frandy Lugo [facility] B-TYPE NATRIURETIC FACTOR 2020-04-03 10:20:00 Milagros Lainez [facility] (BNP) [facility] US RENAL COMPLETE 2020-04-03 08:45:00 Frandy Lugo [facility] POCT-GLUCOSE METER 2020-04-03 07:27:00 [facility] ([facility] ONLY[facility] 2020-04-03 04:48:00 [facility] BASIC METABOLIC PANEL (7) 2020-04-03 04:48:00 Lilliam [facility] PHOSPHORUS 2020-04-03 04:48:00 Keven Tiwari [facility] VANCOMYCIN LEVEL, TROUGH 2020-04-02 22:02:00 Jazmin Willard [facility] POCT-GLUCOSE METER 2020-04-02 21:17:00 [facility] CT LOWER EXTREMITY WITHOUT 2020-04-02 17:38:00 Ray Ellis [facility] CONTRAST [facility] POCT-GLUCOSE METER 2020-04-02 15:51:00 [facility] POCT-GLUCOSE METER 2020-04-02 11:43:00 [facility] CBC (HEMOGRAM ONLY) 2020-04-02 06:31:00 [facility] BASIC METABOLIC PANEL (7) 2020-04-02 06:31:00 [facility] POCT-GLUCOSE METER 2020-04-01 15:37:00 [facility] ANAEROBIC CULTURE 2020-04-01 13:30:14 Laura Nguyen [facility] SURGICALLY OBTAINED 2020-04-01 13:30:14 Patrick [facility] - CULTURE + GRAM STAIN Medical Matty ter ANAEROBIC CULTURE 2020-04-01 13:21:05 [facility] SURGICALLY OBTAINED 2020-04-01 13:21:05 Laura Nguyen [facility] - CULTURE + GRAM STAIN Medical [facility]ty [facility] TISSUE EXAM 2020-04-01 13:12:00 Patrick [facility] POCT-GLUCOSE METER 2020-04-01 12:48:00 [facility] DEBRID[facility]/I&D,WOUND 2020-04-01 11:52:00 , [facility] POCT-GLUCOSE METER 2020-04-01 11:37:00 [facility] ECG 12-LEAD 2020-04-01 08:42:02 Unknown, [facility] ECG 12-LEAD 2020-04-01 08:42:02 Unknown, H[facility] POCT-GLUCOSE METER 2020-04-01 07:24:00 [facility] BASIC METABOLIC PANEL (7) 2020-04-01 03:58:00 [facility] POCT-GLUCOSE METER 2020-03-31 20:42:00 [facility] POCT-GLUCOSE METER 2020-03-31 15:27:00 [facility] PO[facility]SE METER 2020-03-31 11:22:00 [facility] POCT-GLUCOSE METER 2020-03-31 07:18:00 [facility] BASIC METABOLIC PANEL (7) 2020-03-31 04:47:00 [facility] HEMOGLOBIN A1C 2020-03-31 04:47:00 [facility] CBC W/PLT COUNT & AUTO 2020-03-31 04:47:00 [facility] CBC W/PLT COUNT & AUTO 2020-03-31 04:47:00 [facility] POCT-GLUCOSE METER 2020-03-30 21:59:00 [facility] XR FOOT 3 VIEWS LEFT 2020-03-30 21:05:00 [facility] WOUND CULTURE + GRAM STAIN 2020-03-30 20:54:00 [facility] SARS-COV2/RT-PCR ([facility] & 2020-03-30 20:50:00 [facility] REF LABS) [facility] [place] BLOOD CULTURE 2020-03-30 20:49:[address] [facility] CBC W/PLT COUNT & AUTO 2020-03-30 20:49:00 [facility] BASIC METABOLIC PANEL (7) 2020-03-30 20:49:00 [facility] CBC W/PLT COUNT & AUTO 2020-03-30 20:49:00 [facility] CARDIAC CATH REPORT - SCAN 2020-03-30 00:00:00 Provider [facility] REPORT OF PROCEDURE - 2020-03-30 00:00:00 [facility] ENDOSCOPY SCAN [facility] BLOOD CULTURE 2020-03-20 01:07:00 David Riddle [facility] LACTIC ACID, VENOUS 2020-03-20 01:07:00 David Riddle [facility] CBC W/PLT COUNT & AUTO 2020-03-20 00:55:00 David Riddle [facility] BASIC METABOLIC PANEL (7) 2020-03-20 00:55:00 David Riddle [facility] C-REACTIVE PROTEIN 2020-03-20 00:55:00 David Riddle [facility] CBC W/PLT COUNT & AUTO 2020-03-20 00:55:00 David Riddle [facility] BLOOD CULTURE 2020-03-20 00:54:00 David Riddle [facility] XR FOOT 3 VIEWS LEFT 2020-03-20 00:37:00 David Riddle [facility] GLUCOSE BLOOD TEST 2020-03-06 00:00:00 [facility] Insulin injection 2020-03-06 00:00:00 [facility] THER/PROPH/DIAG INJ SC/IM 2020-03-06 00:00:00 [facility] IMMUNIZATION ADMIN 2020-03-06 00:00:00 [facility] IIV4 VACCINE SPLT 0.5 ML 2020-03-06 00:00:00 [facility] IM VFC OFFICE/OUTPATIENT VISIT 2020-03-06 00:00:00 [facility] EST COMPREHEN METABOLIC PANEL 2020-03-06 00:00:00 [facility] LIPID PANEL 2020-03-06 00:00:00 [facility] GLYCOSYLATED HEMOGLOBIN 2020-03-06 00:00:00 [facility] TEST INCISION AND DRAINAGE 2019 07:17:11 Tyshawn Serra [facility] GLUCOSE BLOOD TEST 2019-11-09 00:00:00 [facility] OFFICE/OUTPATIENT VISIT 2019-11-09 00:00:00 [facility] EST COMPREHEN METABOLIC PANEL 2019-11-09 00:00:00 [facility] LIPID PANEL 2019-11-09 00:00:00 [facility] GLYCOSYLATED HEMOGLOBIN 2019-11-09 00:00:00 [facility] TEST GLUCOSE BLOOD TEST 2019-07-03 00:00:00 [facility] OFFICE/OUTPATIENT VISIT 2019-07-03 00:00:00 [facility] EST COMPREHEN METABOLIC PANEL 2019-07-03 00:00:00 [facility] LIPID PANEL 2019-07-03 00:00:00 [facility] GLYCOSYLATED HEMOGLOBIN 2019-07-03 00:00:00 [facility] TEST GLUCOSE BLOOD TEST 2019-04-04 00:00:00 [facility] OFFICE/OUTPATIENT VISIT 2019-04-04 00:00:00 [facility] EST COMPREHEN METABOLIC PANEL 2019-04-04 00:00:00 [facility] LIPID PANEL 2019-04-04 00:00:00 [facility] GLYCOSYLATED HEMOGLOBIN 2019-04-04 00:00:00 [facility] TEST Plan of Care Planned Activity Planned Date Details Comments Source Future Scheduled 2023-03-[address] [facility]00 (procedure) [code = [facility] 63828156] Future Scheduled 2023-03-[address] [facility] 00:00:00 (procedure) [code = [facility] 32728100] Future Scheduled 2023-03-[address] [facility] 00:00:00 (procedure) [code = [facility] 41478420] Future Scheduled 2023-03-[address] [facility] 00:00:00 (procedure) [code = [facility] 39823543] Future Scheduled 2023-03-[address] [facility] 00:00:00 (procedure) [code = [facility] 89371945] Future Scheduled 2023-03-[address] [facility] 00:00:00 (procedure) [code = [facility] 21800045] Future Scheduled 2023-03-[address] [facility] 00:00:00 (procedure) [code = [facility] 58387345] Future Scheduled 2021-09-[address] examination Medical Center (regime/therapy) [code = 666312912] Future Scheduled 2021-09-[address] [facility] examination Medical Center (regime/therapy) [code = 413464344] Future Scheduled 2021-09-[address] [facility] 00[facility] examination Medical Center (regime/therapy) [code = 262021002] Future Scheduled 2021-09-[address] [facility] 00[facility] examination Medical Center (regime/therapy) [code = 176472234] Future Scheduled 2021-09-[address] [facility] 00[facility] examination Medical Center (regime/therapy) [code = 473653949] Future Scheduled 2021-09-[address] 00[facility]00 examination Medical Center (regime/therapy) [code = 951631714] Future Scheduled 2021-09-[address] [facility] 00[facility] examination Medical Center (regime/therapy) [code = 447863823] Future Scheduled 2020-11-27 INFLUENZA VACCINE (#1[facility] [code = INFLUENZA Medical Ce nter VACCINE (#1)] Future Scheduled 2020-11-27 INFLUENZA VACCINE (#1) [facility] 00:00:00 [code = INFLUENZA Medical Ce nter VACCINE (#1)] Future Scheduled 2020-11-27 INFLUENZA VACCINE (#1) [facility] 00:00:00 [code = INFLUENZA Medical Ce nter VACCINE (#1)] Future Scheduled 2020-11-27 INFLUENZA VACCINE (#1) [facility] 00:00:00 [code = INFLUENZA Medical Ce nter VACCINE (#1)] Future Scheduled 2020-11-27 INFLUENZA VACCINE (#1) [facility] 00:00:00 [code = INFLUENZA Medical Ce nter VACCINE (#1)] Future Scheduled 2020-11-27 INFLUENZA VACCINE (#1) [facility] 00:00:00 [code = INFLUENZA Medical Ce nter VACCINE (#1)] Future Scheduled 2020-11-27 INFLUENZA VACCINE (#1) [facility]:00:00 [code = INFLUENZA Medical Ce nter VACCINE (#1)] Future Scheduled 2020-06-[address] [facility]00 measurement Medical Center (procedure) [code = 06614012] Future Scheduled 2020-06-[address] [facility] measurement Medical Center (procedure) [code = 04585965] Future Scheduled 2020-06-[address] [facility] measurement Medical Center (procedure) [code = 00102676] Future Scheduled 2020-06-[address] [facility] measurement [facility] (procedure) [code = 13081080] Future Scheduled 2020-06-[address] [facility]00 measurement [facility] (procedure) [code = 90381563] Future Scheduled 2020-06-[address] [facility] 00[facility]00 measurement Medical Center (procedure) [code = 95053610] Future Scheduled 2020-06-[address] [facility] 00[facility]:00 measurement Medical Center (procedure) [code = 75149471] Future Scheduled 2018-06-11 Urine screening for [facility] 00:[facility]:00 protein (procedure) Medical Center [code = 437486647] Future Scheduled 2018-06-11 Urine screening [facility] 00:00:00 protein (procedure) Medical Center [code = 782630207] Future Scheduled 2018-06-11 Urine screening [facility] 00:00:00 protein (procedure) Medical Center [code = 959054785] Future Scheduled 2018-06-11 Urine screening [facility] 00:00:00 protein (procedure) Medical Center [code = 955833747] Future Scheduled 2018-06-11 Urine screening [facility] 00:00:00 protein (procedure) Medical Center [code = 330334043] Future Scheduled 2018-06-11 Urine screening [facility] 00:00:00 protein (procedure) Medical Center [code = 949034636] Future Scheduled 2018-06-11 Urine screening [facility] 00:00:00 protein (procedure) Medical Center [code = 754078098] Future Scheduled 1992 DTAP/TDAP/TD VACCINES [facility]:00 (1 - Tdap) [code = Medical C enter DTAP/TDAP/TD VACCINES (1 - Tdap)] Future Scheduled 1992 DTAP/TDAP/TD VACCINES [facility] 00:00:00 (1 - Tdap) [code = Medical C enter DTAP/TDAP/TD VACCINES (1 - Tdap)] Future Scheduled 1992 DTAP/TDAP/TD VACCINES [facility] 00:00:00 (1 - Tdap) [code = Medical C enter DTAP/TDAP/TD VACCINES (1 - Tdap)] Future Scheduled 1992 DTAP/TDAP/TD VACCINES [facility] 00:00:00 (1 - Tdap) [code = Medical C enter DTAP/TDAP/TD VACCINES (1 - Tdap)] Future Scheduled 1992 DTAP/TDAP/TD VACCINES [facility] 00:00:00 (1 - Tdap) [code = Medical C enter DTAP/TDAP/TD VACCINES (1 - Tdap)] Future Scheduled 1992 DTAP/TDAP/TD VACCINES [facility] 00:00:00 (1 - Tdap) [code = Medical C enter DTAP/TDAP/TD VACCINES (1 - Tdap)] Future Scheduled 1992 DTAP/TDAP/TD VACCINES [facility] 00:00:00 (1 - Tdap) [code = Medical C enter DTAP/TDAP/TD VACCINES (1 - Tdap)] Future Scheduled 1985 COVID-19 VACCINE (1) [facility] 00:00:00 [code = COVID-[address] VACCINE (1)] Future Scheduled 1985 COVID-19 VACCINE (1) [facility] 00:00:00 [code = COVID-[address] VACCINE (1)] Future Scheduled 1985 COVID-19 VACCINE (1) [facility] 00:00:00 [code = COVID-[address] VACCINE (1)] Future Scheduled 1985 COVID-19 VACCINE (1) [facility] 00:00:00 [code = COVID-[address] VACCINE (1)] Future Scheduled 1985 COVID-19 VACCINE (1) [facility] 00:00:00 [code = COVID-[address] VACCINE (1)] Future Scheduled 1985 COVID-19 VACCINE (1) [facility] 00:00:00 [code = COVID-[address] VACCINE (1)] Future Scheduled 1985 COVID-19 VACCINE (1) [facility] 00:00:00 [code = COVID-[address] VACCINE (1)] Future Scheduled 1983-12-[address] DI[address] E[address] EXAM [facility] 00:00:00 [code = DIABETIC EYE Medical Center EXAM] Future Scheduled 1983-12-[address]YE EXAM [facility] 00:00:00 [code = DIABETIC EYE Medical Center EXAM] Future Scheduled 1983-12-[address] DIAB[address] EYE EXAM [facility] 00:00:00 [code = DIABETIC EYE Medical Center EXAM] Future Scheduled 1983-12-[address] DIAB[address] EYE EXAM [facility] 00:00:00 [code = DIABETIC EYE Medical Center EXAM] Future Scheduled 1983-12-[address] DIABET[address] EYE EXAM [facility] 00:00:00 [code = DIABETIC EYE Medical Center EXAM] Future Scheduled 1983-12-[address] DIABET[address] EYE EXAM [facility] 00:00:00 [code = DIABETIC EYE Medical Center EXAM] Future Scheduled 1983-12-[address] DIABET[address] EYE EXAM [facility] 00:00:00 [code = DIABETIC EYE Medical Center EXAM] Future Scheduled 1979-12-[address] [facility] Test 00:00:00 0-64 YRS (1 of 1 - Medical C enter PPSV23) [code = PNEUMOCOCCAL VACCINE 0-64 YRS (1 of 1 - PPSV23)] Future Scheduled 1979-12-[address] [facility] 00:00:00 0-64 YRS (1 of 1 - Medical C enter PPSV23) [code = PNEUMOCOCCAL VACCINE 0-64 YRS (1 of 1 - PPSV23)] Future Scheduled 1979-12-[address] [facility] 00:00:00 0-64 YRS (1 of 1 - Medical C enter PPSV23) [code = PNEUMOCOCCAL VACCINE 0-64 YRS (1 of 1 - PPSV23)] Future Scheduled 1979-12-[address] [facility] 00:00:00 0-64 YRS (1 of 1 - Medical C enter PPSV23) [code = PNEUMOCOCCAL VACCINE 0-64 YRS (1 of 1 - PPSV23)] Future Scheduled 1979-12-[address] [facility] 00:00:00 0-64 YRS (1 of 1 - Medical C enter PPSV23) [code = PNEUMOCOCCAL VACCINE 0-64 YRS (1 of 1 - PPSV23)] Future Scheduled 1979-12-[address] [facility] 00:00:00 0-64 YRS (1 of 1 - Medical C enter PPSV23) [code = PNEUMOCOCCAL VACCINE 0-64 YRS (1 of 1 - PPSV23)] Future Scheduled 1979-12-[address] [facility] 00:00:00 0-64 YRS (1 of 2 - Medical C enter PPSV23) [code = PNEUMOCOCCAL VACCINE 0-64 YRS (1 of 2 - PPSV23)] Future Scheduled [address] [facility]:00 malignant neoplasm of [facility] Center colon (procedure) [code = 798554514] Future Scheduled [address] [facility] 00:00:00 [facility] colon (procedure) [code = 855415668] Future Scheduled [address] [facility] 00:00:00 [facility] colon (procedure) [code = 500536125] Future Scheduled [address] [facility] 00:00:00 [facility] colon (procedure) [code = 999768485] Future Scheduled [address] [facility] 00:00:00 malignant [facility] colon (procedure) [code = 538090861] Future Scheduled [address] [facility] 00:00:00 [facility] colon (procedure) [code = 880796747] Future Scheduled [address] [facility] 00:00:00 malignant ne[facility] Center colon (procedure) [code = 265242705] Encounters Start End Encounter Admission Attending Care Care Encounter Source Date/Time Date/Time Type Type Clinicians Facility Department ID 2021-02-05 2021-02-05 Outpatient NURSE, [facility] [id number] Access 08:34:00 08:34:00 [facility] 2021-01-31 2021-01-31 Outpatient DIANE [facility] [id number] Access 12:07:00 12:07:00 [facility] 2021-01-31 2021-01-31 [facility] [id number] Access 12:07:00 12:07:00 [facility] [id number] [facility] [id number] 2021-01-29 2021-01-29 Outpatient DIANE [facility] [id number] Access 10:00:00 10:00:00 [facility] 2021-01-29 2021-01-29 OFFICE/OUT DIANE [facility] [id number] Access 10:00:00 10:00:00 PATIENT MIRTA [id number] Health VISIT EST [id number] alexander [id number] 2021-01-06 2021-01-06 Outpatient OSEI, [facility] [id number] Access 10:24:00 10:24:00 [facility] 2021-01-06 2021-01-06 Outpatient OSEI [facility] [id number] Access 10:24:00 10:24:00 [facility] [id number] Health [id number] alexander [id number] 2020-12-11 2020-12-11 Outpatient OSEI, [facility] [id number] Access 14:09:00 14:09:00 [facility] 2020-12-11 2020-12-11 Outpatient OSEI [facility] [id number] Access 14:09:00 14:09:00 [facility] [id number] [facility] [id number] 2020-12-11 2020-12-11 Outpatient NURSE, [facility] [id number] Access 13:49:00 13:49:00 NURSE [facility] 2020-12-11 2020-12-11 Outpatient NURSE, [facility] [id number] Access 13:49:00 13:49:00 NURSE [id number] Health [id number] alexander [id number] 2020-12-06 2020-12-06 Outpatient CONTRERAS, [facility] [id number] Access 10:17:00 10:17:00 [facility] 2020-12-06 2020-12-06 Outpatient DIANE, [facility] [id number] Access 10:17:00 10:17:00 [facility] [id number] Health [id number] alexander [id number] 2020-11-04 2020-12-05 Outpatient Neida [facility] WC [id number] [place] 09:15:00 23:59:00 [facility] 2020-12-03 2020-12-03 Outpatient CONTRERAS, [facility] [id number] Access 09:00:00 09:00:00 [facility] 2020-12-03 2020-12-03 OFFICE[facility] [id number] Access 09:00:00 09:00:00 PATIENT [facility] [id number] Health VISIT EST [id number] alexander [id number] 2020-12-03 [facility] [id number] Access 00:00:00 00:00:00 [facility] 2020-12-03 2020-12-03 [facility] [id number] Access 00:00:00 00:00:00 [facility] [id number] 2020-10-07 2020-11-06 [facility] [id number] [place] 08:58:00 15:34:00 [facility] 2020-11-02 2020-11-02 [facility] [id number] Access 10:08:00 10:08:00 [facility] 2020-11-02 2020-11-02 [facility] [id number] Access 10:08:00 10:08:00 [facility] [id number] alexander [id number] 2020-10-29 2020-10-29 Outpatient C DIANE [facility] RAD [id number] [place] 10:49:00 23:59:00 [facility] 2020-10-29 2020-10-29 [facility] [id number] Access 08:30:00 08:30:00 [facility] 2020-10-29 2020-10-29 OFFICE/[facility] [id number] Access 08:30:00 08:30:00 PATIENT MIRTA [id number] Health VISIT EST [id number] alexander [id number] 2020-10-01 2020-10-01 [facility] [id number] Access 13:25:00 13:25:00 [facility] 2020-10-01 2020-10-01 [id number] Access 13:25:00 13:25:00 [facility] [id number] Health [id number] alexander [id number] 2020-09-29 [facility] David Riddle [facility] [id number] [facility] 06:13:00 13:20:00 Encounter Gretchen Hensley Michael [facility] 2020-09-26 2020-09-26 Surgery Patrick [facility] [id number] [facility] 07:00:00 08:30:00 [facility] 2020-09-26 2020-09-26 Anesthesia Joanie [facility] [id number] [facility] [address] 07:12:00 08:20:00 Event [facility] 2020-09-22 2020-09-22 Emergency ER [facility] Emergency [id number] [facility] 06:09:00 06:09:00 2020-09-22 2020-09-22 Travel [facility] [id number] [facility] 00:00:00 00:00:00 [facility] 2020-09-17 2020-09-17 Outpatient CONTRERAS, [facility] ED [id number] Access 10:30:00 10:30:00 [facility] 2020-09-17 2020-09-17 [facility] wzc[facility]x b ibjf529-l Access 10:30:00 10:30:00 PATIENT MIRTA 22-4926-a4f u6p-5607-i Health VISIT EST f-[id number] 571-u4x200 alexander [id number] 2020-08-19 2020-08-19 Outpatient [facility], [facility] ED [id number] Access 16:36:00 16:36:00 NAIF Oh 2020-08-19 2020-08-19 Outpatient [facility] sji491oq-2t ffa o9527-k Access 16:36:00 16:36:00 NAIF 22-4926-a4f 77c-448d- a Health f-34503403n 947-967f2c alexander [id number] 2020-08-15 2020-08-15 Outpatient [facility], [facility] ED [id number] Access 16:00:00 16:00:00 NAIF marie 2020-08-15 2020-08-15 OFFICE/OUT [facility], [facility] yqa463br-9v b2d 6f552-8 Access 16:00:00 16:00:00 PATIENT NAIF -4926-a4f 5b3-81fs- 8 Health VISIT EST f-15012272k bfe-b7e8ff alexander [id number] 2020-07-04 2020-07-04 Outpatient [facility], [facility] ED [id number] Access 08:04:00 08:04:00 NAIF marie 2020-07-04 2020-07-04 Outpatient [facility], [facility] ijn882jw-4b bf0 69724-b Access 08:04:00 08:04:00 NAIF Estrella-4926-a4f i00-69wv- 8 Health f-52563392b 83a-8c2a7a alexander [id number] 2020-06-19 2020-06-19 Outpatient [facility], [facility] ED [id number] Access 10:00:00 10:00:00 NAIF marie 2020-06-19 2020-06-19 Outpatient [facility], [facility] tkq784bi-5d 204 675k4-2 Access 10:00:00 10:00:00 NAIF Estrella-4926-a4f 103-4d36- a Health f-49724088a [id number] alexander eaa20d 2020-05-09 2020-05-09 Outpatient OMORI, [facility] ED [id number] Access 12:10:00 12:10:00 NAIF marie 2020-05-09 2020-05-09 Outpatient [facility], [facility] aug702py-9g f95 70al5-9 Access 12:10:00 12:10:00 NAIF 22-4926-a4f 9af-4860- 9 Health f-04509469h 351-d55bc4 alexander [id number] 2020-04-30 2020-04-30 Emergency ER Venkatesh [facility] [id number] [facility] [address] 18:09:00 19:41:[address] [facility] 2020-04-30 2020-04-30 Emergency ER [facility] Emergency [id number] [facility] 17:53:00 17:53:00 2020-04-30 2020-04-30 Travel [facility] [id number] [facility] 00:00:00 00:00:00 [facility] 2020-04-26 2020-04-26 Outpatient [facility], [facility] ED [id number] Access 10:00:00 10:00:00 NAIF marie 2020-04-26 2020-04-26 OFFICE/OUT JOSE FRANCISCO, [facility] omi416gw-3q 8f4 x8533-m Access 10:00:00 10:00:00 PATIENT NAIF 22-4926-a4f 15b-403b- a Health VISIT EST f-86592563q i95-56u041 alexander d6ef4f 2020-04-22 2020-04-22 Outpatient OMORI, [facility] ED [id number] Access 14:45:00 14:45:00 NAIF marie 2020-04-22 2020-04-22 Outpatient OMORI, [facility] tjs171cm-1b 55c 39beb-3 Access 14:45:00 14:45:00 NAIF Estrella-4926-a4f 332-4409- b Health f-24325406x g63-eu58n7 alexander 201b3a 2020-04-22 2020-04-22 Outpatient IRIZARRY, [facility] ED [id number] Access 12:41:00 12:41:00 SUKUMAR marie 2020-04-22 2020-04-22 Outpatient IRIZARRY, [facility] 4zv3b7l5-1h 9a1 ddbd0-e Access 12:41:00 12:41:00 SUKUMAR e2-4gw2-68w 6r0-8k3n- 9 [facility] 0-bm1zkz919 30c-206d01 0f4 zn9186 2020-04-18 2020-04-18 Outpatient OMORI, [facility] ED [id number] Access 13:20:00 13:20:00 NAIF marie 2020-04-18 2020-04-18 Outpatient OMORI, [facility] dtp888vv-2y 4ce l8ia5-9 Access 13:20:00 13:20:00 NAIF 22-4926-a4f o27-8ci2- 9 [facility] f-11663049b v50-805525 alexander 117a2b 2020-04-09 2020-04-09 Outpatient OMORI, [facility] ED [id number] Access 09:46:00 09:46:00 NAIF marie 2020-04-09 2020-04-09 Outpatient OMORI, [facility] hty189km-4l 246 239z7-f Access 09:46:00 09:46:00 NAIF 22-4926-a4f 7fb-45a5- 8 Health f-97966026s eb3-4da5a2 alexander dfcadb 2020-03-30 2020-04-06 [facility] Tyshawn Serra [facility] [id number] 19:31:00 13:42:00 Encounter Abel Alatorre, [facility] 2020-04-04 2020-04-04 Outpatient [facility], [facility] ED [id number] Access 14:43:00 14:43:00 NAIF marie 2020-04-04 2020-04-04 Outpatient [facility], [facility] bza320wl-4i 1fd a0389-t Access 14:43:00 14:43:00 NAIF 22-4926-a4f b3q-5w69- 9 [facility] f-75643764a 186-296d9f alexander 6cbd5c 2020-04-01 2020-04-01 Anesthesia Jose Raul [facility] [id number] [facility] 11:51:00 12:50:00 Event [facility] 2020-04-01 2020-04-01 Surgery Patrick [facility] [id number] 11:30:00 12:45:00 [facility] 2020-04-01 2020-04-01 Orders [facility] [id number] 00:00:00 00:00:00 Only [facility] 2020-03-30 2020-03-30 Emergency ER [facility] Emergency [id number] [facility] 19:22:00 19:22:00 2020-03-30 2020-03-30 Travel [facility] [id number] [facility] 00:00:00 00:00:00 [facility] 2020-03-19 2020-03-20 Emergency ER Venkatesh [facility] [id number] [facility] [facility] 23:25:00 02:51:[address] [facility] 2020-03-19 2020-03-19 Emergency ER [facility] Emergency [id number] [facility] 23:15:00 23:15:00 2020-03-19 2020-03-19 Travel [facility] [id number] [facility] 00:00:00 00:00:00 [facility] 2020-03-08 2020-03-08 Outpatient DINH CALVO [facility] ED [id number] Access 12:03:00 12:03:00 Health 2020-03-08 2020-03-08 Outpatient DINH CALVO [facility] 3bw3w0g0-2u no27uuja-w Access 12:03:00 12:03:00 e2-5fm3-50g p70-4x02-p Health 0-cz8hpq415 8w6-403s4e 0f4 74b4d5 2020-03-06 2020-03-06 Outpatient OMORI, [facility] ED [id number] Access 15:00:00 15:00:00 NAIF marie 2020-03-06 2020-03-06 OFFICE/OUT [facility], [facility] she353bz-5b 35b 30edf-4 Access 15:00:00 15:00:00 PATIENT NAIF 22-4926-a4f 79d-4bf4- 8 Health VISIT EST f-71448414k 6t4-pm7355 alexander l7261s 2019 2019 Emergency ER [facility] Emergency [id number] [facility] 07:11:00 07:11:00 2019-11-20 2019-11-20 Outpatient OMORI, [facility] ED [id number] Access 10:30:00 10:30:00 NAIF marie 2019-11-20 2019-11-20 Outpatient [facility], [facility] ekh136kx-4z 8ff 28k6c-9 Access 10:30:00 10:30:00 NAIF Estrella-4926-a4f ea8-46d7- a Health f-95598250k g87-h1qjw4 alexander [id number] 2019-11-09 2019-11-09 Outpatient [facility], [facility] ED [id number] Access 16:15:00 16:15:00 NAIF marie 2019-11-09 2019-11-09 OFFICE/OUT [facility], [facility] fcv208ht-4u f4c 8l654-i Access 16:15:00 16:15:00 PATIENT NAFI 22-4926-a4f d2e-8u81- 8 Health VISIT EST f-74090415u 571-3n0142 alexander [id number] 2019-09-28 2019-09-28 Outpatient OMSTEFANI, [facility] mcv659rp-6g 0d0 j9191-j Access 13:21:00 13:21:00 NAIF Bravo4926-a4f 189-4af1- 9 Health f-34098997b 825-366319 alexander 39477q 2019-09-28 2019-09-28 Outpatient LUBNA SON [facility] 8gr4p1f7-2j 24ok659z-n Access 10:54:00 10:54:00 e2-0uz9-34c 730-4d70-a Health 0-ri6elu647 7ef-ba6cbd 0f4 11s170 2019-07-15 2019-07-15 Emergency [facility] [id number] [facility] 22:19:00 22:19:00 [id number] 2019-07-03 2019-07-03 OFFICE/OUT JOSE FRANCISCO, [facility] ztm879pa-9c 81c 086s5-s Access 10:30:00 10:30:00 PATIENT NAIF Bravo4926-a4f 8cf-4b4d- b Health VISIT EST f-71330205r 3b7-nft1vi alexander o1s516 2019-05-09 2019-05-09 [facility] k463j-g Access 08:16:00 08:16:00 NAIF Bravo4926-a4f t1m-99j8- b Health f-11617932o 12b-ff4e3d alexander ada41d 2019-05-01 2019-05-01 Outpatient NURSE, [facility] ykn424zp-3f 07a p1n9h-2 Access 09:27:00 09:27:00 NURSE Shelly4926-a4f eab-46d9-9 Health f-80723716e o16-36r08n alexander 3d7d99 2019-04-11 2019-04-11 Outpatient OMSTEFANI, [facility] rrk403sq-3n 608 k1g52-z Access 17:52:00 17:52:00 NAIF Bravo4926-a4f c46-7r4l- 9 Health f-14600755v 1ed-4c31d3 alexander a7dbdd 2019-04-06 2019-04-06 Outpatient JOSE FRANCISCO, [facility] nkm564yl-3f cfd 56058-3 Access 17:33:00 17:33:00 NAIF Ferreira6-a4f 877-42c1- a Health f-64154194u q63-13216i alexander [id number] 2019-04-04 2019-04-04 OFFICE/OUT JOSE FRANCISCO, [facility] dpk474ie-7e 0a8 0t56a-2 Access 14:30:00 14:30:00 PATIENT NAIF Bravo4926-a4f lyudmila-46ec- b Health VISIT EST f-03862660j fd1-2857e5 alexander ab27a1 2018-09-07 2018-09-07 Outpatient JOSE FRANCISCO, [facility] amt115ch-1j 7e5 64fea-3 Access 00:00:00 00:00:00 NAIF Bravo4926-a4f 2ee-4361- b Health f-66528978r i8d-0w0c15 alexander 83669v 2018-09-06 2018-09-06 Outpatient JOSE FRANCISCO, [facility] fex583bc-4s 69a 2o6g2-7 Access 09:34:00 09:34:00 NAIF Bravo4926-a4f cf2-4291- 9 Health f-21200583s db4-f91ed2 alexander 84f5b6 2018-07-26 2018-07-26 Outpatient [facility] ED [id number] Access 00:00:00 00:00:00 H, PROVIDER Will garcia 2018-07-26 2018-07-26 Outpatient [facility] 1rl3b9g1-5q 3i22jb37-6 Access 00:00:00 00:00:00 H, PROVIDER e2-2lj3-71b 24b-42 3c-8 Health 0-tw0hau274 036-5ea1f1 0f4 dc6a94 2018-07-26 2018-07-26 Outpatient DIANE, [facility] dsz908wj-3y 7 kb2ev68-6 Access 00:00:00 00:00:00 MIRTA Shelly4926-a4f x80-12h2-b Health f-80013745z q74-9w7e52 alexander d785c1 2018-07-26 2018-07-26 Outpatient OMORI, [facility] 3ai2q0p3-4l 877 ue891-3 Access 00:00:00 00:00:00 NAIF pierre-6aq6-92d 397-493a- a Health 0-kh0crd020 6x6-m2vc3a 0f4 20480j 2018-07-26 2018-07-26 Outpatient OMORI, [facility] eqy843ys-3v 499 j9m20-1 Access 00:00:00 00:00:00 NAIF Sameer-4926-a4f ba6-4f54- 8 Health f-41412049o 9q6-q7l89i alexander a45b7b 2018-07-25 2018-07-25 Outpatient OMORI, [facility] phr458rr-4q 62b bbb95-e Access 00:00:00 00:00:00 NAIF Sameer-4926-a4f b87-2164- 8 Health f-21032559k cbf-5b3a7f alexander t6024s 2018-07-22 2018-07-22 Outpatient [facility] [id number] Access 00:00:00 00:00:00 H, PROVIDER Will garcia 2018-07-22 2018-07-22 Outpatient [facility] 9ow5j0k0-0c 1jjj5io8-5 Access 00:00:00 00:00:00 H, PROVIDER gabby-9qp1-44c 1b8-4b 5b-b Health 0-cv0owd387 54b-899e22 0f4 132564 1160-04-26 2018-07-22 Outpatient OMORI, [facility] ueq856uj-2o 44d 08v55-c Access 00:00:00 00:00:00 NAIF 22-4926-a4f 8cb-4f46- b Health f-52000242v v59-091d4w alexander 871f2f 2018-07-22 2018-07-22 Outpatient DIANE, [facility] qau963nl-5y c 5682s3b-4 Access 00:00:00 00:00:00 MIRTA 22-4926-a4f u59-6hd0-c Health f-70431470a 39a-5d0157 alexander cfbbac 2018-06-28 2018-06-28 Outpatient [facility] [id number] Access 00:00:00 00:00:00 H, PROVIDER Will garcia 2018-06-28 2018-06-28 Outpatient [facility] 5vg4q4n7-5d 17372yo2-j Access 00:00:00 00:00:00 H, PROVIDER april2ec4-28y 17d-4e 23-9 Health 0-cv5dbf267 046-469fb5 0f4 bc45ce 2018-03-30 2018-03-30 Outpatient [facility] [id number] Access 00:00:00 00:00:00 H, PROVIDER Will garcia 2018-03-30 2018-03-30 Outpatient [facility] 9my5z3s3-8y i24t8t66-8 Access 00:00:00 00:00:00 H, PROVIDER april9xd7-53f 710-43 22-8 Health 0-jr3fzi059 6i0-u9xv76 0f4 7d1bee 2018-03-30 2018-03-30 Outpatient CONTRERAS, [facility] gov688kt-7d 1 f5lr44v-1 Access 00:00:00 00:00:00 MIRTA 22-4926-a4f 56a-40cb-a Health f-96556173n z50-876m80 alexander [id number] 1733-01-02 2018-03-30 Outpatient OMORI, [facility] nzs486rb-6o 448 6p4ib-p Access 00:00:00 00:00:00 NAIF 22-4926-a4f 520-4c13- 8 Health f-52033185p l10-6dt6yo alexander 9b9a27 2017-12-28 2017-12-28 Outpatient [facility] [id number] Access 00:00:00 00:00:00 H, PROVIDER Will garcia 2017-12-28 2017-12-28 Outpatient [facility] 4ww7m8d9-9k 9954psw4-1 Access 00:00:00 00:00:00 H, PROVIDER april4eo1-68h bed-49 71-9 Health 0-so1iez445 255-56522w 0f4 06e2a8 2017-12-27 2017-12-27 Outpatient [facility] [id number] Access 00:00:00 00:00:00 H, PROVIDER Will garcia 2017-12-27 2017-12-27 Outpatient [facility] 1tv5s5w8-8f [id number]-4 Access 00:00:00 00:00:00 H, PROVIDER gabby-5nr7-47v 1d0-43 b0-a Health 0-xg9fta572 44c-ecfa29 0f4 0qx896 2017-12-20 2017-12-20 Outpatient DIANE, [facility] jtm436df-4e 9 r4o0625-1 Access 08:48:00 08:48:00 MIRTA 22-4926-a4f 224-45e3-9 Health f-52803606c fc6-096b3d alexander 040c9a 2017-12-20 2017-12-20 Outpatient [facility] [id number] Access 00:00:00 00:00:00 H, PROVIDER Will garcia 2017-12-20 2017-12-20 Outpatient [facility] 2vc1a0p3-6q 4izgg05s-8 Access 00:00:00 00:00:00 H, PROVIDER april6fw9-43n b2c-4b 7d-b Health 0-wz5ppm300 r21-06j13b 0f4 c568b3 2017-12-20 2017-12-20 Outpatient IRIZARRY, [facility] rqc894ks-1o 79a 51013-b Access 00:00:00 00:00:00 SUKUMAR 22Ry4926-a4f eae-4c31- b Health f-15241562f 520-at6347 alexander 0a3c1f 2017-12-20 2017-12-20 Outpatient OMORI, [facility] rke543uv-3a 2e3 fvi5b-9 Access 00:00:00 00:00:00 NAIF 22-4926-a4f da8-4f41- a Health f-00870577s 12d-3adf05 alexander 0d5ff7 2017-12-20 2017-12-20 Outpatient NUNEZ, [facility] uxq252vk-2j a7c 1s714-m Access 00:00:00 00:00:00 CAROLYN 22-4926-a4f 5g7-2i3w-9 Health f-93724875a 5v8-a58l18 alexander 4b61d6 2017-12-20 2017-12-20 Outpatient JONAS, [facility] hsj202uz-6m cf 39zap6-i Access 00:00:00 00:00:00 MAEVE -4926-a4f 051-44b8-b Health f-18892036n 8g6-3z9063 alexander aee2d5 2017-07-14 2017-07-14 Outpatient [facility] [id number] Access 00:00:00 00:00:00 H, PROVIDER Will garcia 2017-07-14 2017-07-14 Outpatient [facility] 3tv8m4k3-4c xe0x2sl5-z Access 00:00:00 00:00:00 H, PROVIDER april0bs5-99c 109-47 80-a Health 0-kd7jcf064 784-g08858 0f4 01e0fc 2017-07-14 2017-07-14 Outpatient [facility] 7ix4t8b4-1q f0f 5z61j-d Access 00:00:00 00:00:00 e2-1sw7-43a 98a-4568-b Health 0-or9gjb782 001-941db6 0f4 9c42e9 2017-07-14 2017-07-14 Outpatient ENRIQUE, [facility] 5vy0e7r7-5o 7d1 d2van-3 Access 00:00:00 00:00:00 SALIMARI e2-9ca5-66e 7cb-4bf9-9 Health 0-go0jpb778 k07-7790c8 0f4 [id number] 2026-03-16 2017-06-11 Outpatient JOSE FRANCISCO, [facility] vus549bb-9g ded do538-6 Access 00:00:00 00:00:00 NAIF 22-4926-a4f 849-421a- a Health f-29370747p 11b-54fdd4 alexander 2q7721 2017-06-10 2017-06-10 Outpatient [facility] [id number] Access 00:00:00 00:00:00 H, PROVIDER Will garcia 2017-06-10 2017-06-10 Outpatient [facility] 0tz3i2p1-9k e4qxc5hp-9 Access 00:00:00 00:00:00 H, PROVIDER gabby-9av7-29k a95-4d 18-8 Health 0-ft0ivc995 67d-88e2c2 0f4 2eef4c 2017-06-10 2017-06-10 Outpatient DIANE, [facility] fdo375jk-5t e ks9n9yr-1 Access 00:00:00 00:00:00 MIRTA 22-4926-a4f 3ac-43d9-9 Health f-57026296i 6de-96l724 alexander ceaffe 2017-06-10 2017-06-10 Outpatient MANAV, [facility] jyq561nn-0c 27 s2hgzt-7 Access 00:00:00 00:00:00 VITA 22-4926-a4f 0ec-4f3f -8 Health f-59761054b 2p7-7g8t27 alexander 31z390 2017-06-10 2017-06-10 Outpatient OMORI, [facility] kwg517mu-9e 6d7 mz216-o Access 00:00:00 00:00:00 NAIF 22-4926-a4f b8v-4922- b Health f-92876271q 499-uf652v alexander qde618 2017-04-09 2017-04-09 Outpatient OMORI, [facility] maj188jh-8c a22 5bch2-8 Access 13:28:00 13:28:00 NAIF 22-4926-a4f 27b-4f1f- 8 Health f-76418836b 3ef-fa2b8f alexander 90907x 2017-04-09 2017-04-09 Outpatient [facility] [id number] Access 00:00:00 00:00:00 H, PROVIDER Will garcia 2017-04-09 2017-04-09 Outpatient [facility] 6mu6x7n9-5o mp61449i-7 Access 00:00:00 00:00:00 H, PROVIDER gabby-8az3-82l acc-4b a3-b Health 0-iz9wqj551 k44-53bp4h 0f4 9u2243 2017-04-09 2017-04-09 Outpatient CONTRERAS, [facility] wgd194dz-0j d 7448cx9-4 Access 00:00:00 00:00:00 MIRTA 22-4926-a4f be7-40fa-9 Health f-53443425x fad-beba5c alexander 745e5a 2017-03-30 2017-03-30 Outpatient [facility] [id number] Access 00:00:00 00:00:00 H, PROVIDER Will garcia 2017-03-30 2017-03-30 Outpatient [facility] 5xw0x3z6-3d g4y9n350-g Access 00:00:00 00:00:00 H, PROVIDER april5ok8-29h e7f-41 b3-8 Health 0-bu3txg637 0ab-1sr401 0f4 5ba25a 2017-02-09 2017-02-09 Outpatient [facility] [id number] Access 00:00:00 00:00:00 H, PROVIDER Will garcia 2017-02-09 2017-02-09 Outpatient [facility] 6eu9e4s4-7y 68q9pf3t-7 Access 00:00:00 00:00:00 H, PROVIDER april7am6-17k eed-49 91-9 Health 0-pd6aet927 725-03213y 0f4 de8ac2 2017-02-09 2017-02-09 Outpatient ORI, [facility] cat697ly-3z b35 zj762-8 Access 00:00:00 00:00:00 NAIF -4926-a4f g24-7c12- a Health f-74528203z z62-76t5e0 alexander 88c1fc 2017-02-09 2017-02-09 Outpatient CONTRERAS, [facility] lmn880ss-6x d 65s4d48-q Access 00:00:00 00:00:00 MIRTA 22-4926-a4f 34c-46bd-b Health f-88052310t 70f-q0471c alexander faf56f 2016-12-15 2016-12-15 Outpatient [facility] [id number] Access 00:00:00 00:00:00 H, PROVIDER Will garcia 2016-12-15 2016-12-15 Outpatient [facility] 8id5s5z8-4q 455eh957-5 Access 00:00:00 00:00:00 H, PROVIDER e2-8xr4-46g 3ba-4a 3c-8 Health 0-ja1duq222 9fd-cceee0 0f4 5f5e8e 2016-12-15 2016-12-15 Outpatient CHARLY BARDALES [facility] [id number]-31 90ldn1e9-6 Access 00:00:00 00:00:00 45-8h2h-e4e x9v-24a9-m Health d-n7x007608 00b-ed1c16 354 e7dd8d 2016-12-12 2016-12-12 Outpatient [facility] 107 [id number] Access 00:00:00 00:00:00 H, PROVIDER Will garcia 2016-12-12 2016-12-12 Outpatient [facility] [id number] Access 00:00:00 00:00:00 H, PROVIDER april6mi8-10a 6fa-4f 7f-9 Health 0-mr1fkr335 402-fe6f8d 0f4 1526bf 2016-12-12 2016-12-12 Outpatient ISAURA, [facility] [id number] 91 [id number] Access 00:00:00 00:00:00 CHRISTINA e2-0qz1-25l u2e-5jxz- 9 Health 0-tv1joh222 558-4d60f7 0f4 f917d6 2016-12-11 2016-12-11 Outpatient CHARLY [facility]ARDALES [facility] [id number] Access 00:00:00 00:00:00 45-2f8w-n4d 3fe-4dc9-9 Health d-[id number] 474-f474cb 354 c4eb2b 2016-12-10 2016-12-10 Outpatient [facility] 107 [id number] Access 00:00:00 00:00:00 H, PROVIDER Will garcia 2016-12-10 2016-12-10 Outpatient [facility] [id number] Access 00:00:00 00:00:00 H, PROVIDER valerie7zm7-29s 706-4a aa-b Health 0-io2yem348 af4-5611ae 0f4 [id number] 3739-09-14 2016-12-10 Outpatient CHARLY BARDALES [facility] [id number] Access 00:00:00 00:00:00 45-6m4l-y7g p9s-6918-x Health d-[id number] j1a-61l9i7 354 5b51dc 2016-12-01 2016-12-01 Outpatient [facility] 107 [id number] Access 00:00:00 00:00:00 H, PROVIDER Will garcia 2016-12-01 2016-12-01 Outpatient [facility] [id number] Access 00:00:00 00:00:00 H, PROVIDER valerie4ts5-38t 4f5-4c 72-9 Health 0-xk6ovq296 w4n-1ae971 0f4 8ff05c 2016-12-01 2016-12-01 Outpatient DIPIKA, [facility] [id number] 42 [id number] Access 00:00:00 00:00:00 LAVELLE 45-3p4n-i7v 636-4710-8 Health d-w2l467888 2ff-2f9a6a 354 ef57e5 2016-12-01 2016-12-01 Outpatient CHARLY BARDALES [facility] [id number] Access 00:00:00 00:00:00 45-0z1b-q0t df0-4210-a Health d-l3p644550 1p2-751r5x 354 7i1146 2016-11-27 2016-11-27 Outpatient [facility] 107 [id number] Access 00:00:00 00:00:00 H, PROVIDER Will garcia 2016-11-27 2016-11-27 Outpatient [facility] [id number] [id number]-[id number] Access 00:00:00 00:00:00 H, PROVIDER tatyana2eh7-21d db1-44 51-9 Health 0-jw6apn124 8i3-i8y828 0f4 336229 6783-09-01 2016-11-27 Outpatient DORISR, [facility] [id number] 72 [id number] Access 00:00:00 00:00:00 LAVELLE Kemp-8u7y-g1q z02-36t0-c Health d-[id number] 384-b0c4cd 354 eb80b5 2016-11-26 2016-11-26 Outpatient [facility] 107 [id number] Access 00:00:00 00:00:00 H, PROVIDER Will garcia 2016-11-26 2016-11-26 Outpatient [facility] [id number] Access 00:00:00 00:00:00 H, PROVIDER april3nz6-07k c45-46 cf-b Health 0-dd9vik702 4ad-4c0e68 0f4 37dc7c 2016-11-26 2016-11-26 Outpatient DORISR, [facility] [id number] [id number] Access 00:00:00 00:00:00 LAVELLE Pepe5b1p-s2p ae7-40e5-a Health d-[id number] j01-1a13e5 354 fc21e9 2016-11-20 2016-11-20 Outpatient [facility] 107 [id number] Access 00:00:00 00:00:00 H, PROVIDER Will garcia 2016-11-20 2016-11-20 Outpatient [facility] [id number] Access 00:00:00 00:00:00 H, PROVIDER april4ad1-42h 2e2-42 0d-8 Health 0-fw0ete430 r29-468w46 0f4 51n252 2016-11-20 2016-11-20 Outpatient MOSESAMAR, [facility] [id number] Access 00:00:00 00:00:00 LAVELLE Kemp-4y5p-b6e 250-49d0-a Health d-[id number] aa8-0b8ad1 354 [id number] 4674-08-23 2016-11-18 Outpatient [facility] 107 [id number] Access 00:00:00 00:00:00 H, PROVIDER Will garcia 2016-11-18 2016-11-18 Outpatient [facility] 4rm2w3w6-3p [id number] Access 00:00:00 00:00:00 H, PROVIDER april2dx3-19q 7d4-4d a9-8 Health 0-sa2hpa635 q82-26mkvs 0f4 c11e26 2016-11-18 2016-11-18 Outpatient CHARLY BARDALES [facility] [id number] Access 00:00:00 00:00:00 45-5m4a-k2c ea3-4257-a Health d-z5s843973 2cc-9275f9 354 e49a35 2016-11-12 2016-11-12 Outpatient CANAMAR, [facility] [id number]-[id number] Access 00:00:00 00:00:00 LAVELLE Pepe8g6t-i3t o9d-7ls9-l Health d-[id number] l9o-318li1 354 bf1782 2016-11-11 2016-11-11 Outpatient [facility] 107 [id number] Access 00:00:00 00:00:00 H, PROVIDER Will garcia 2016-11-11 2016-11-11 Outpatient [facility] [id number] [id number] Access 00:00:00 00:00:00 H, PROVIDER april1lk6-62l 968-42 07-b Health 0-bd3rsv073 [id number] 0f4 9f36c8 2016-11-11 2016-11-11 Outpatient CANAMAR, [facility] [id number] 7c [id number]-j Access 00:00:00 00:00:00 LAVELLE Kemp-0p7z-b0i 633-4aa9-8 Health d-[id number] fff-989601 354 ee4a0e 2016-10-30 2016-10-30 Outpatient [facility] 107 [id number] Access 00:00:00 00:00:00 H, PROVIDER Will garcia 2016-10-30 2016-10-30 Outpatient [facility] [id number] Access 00:00:00 00:00:00 H, PROVIDER e2-7lx7-81v 47b-46 3e-8 Health 0-cy8asw951 c5e-seo7r8 0f4 [id number] 2016-10-30 2016-10-30 Outpatient CHARLY BARDALES [facility] [id number] Access 00:00:00 00:00:00 45-9n0b-d5r evert-47eb-b Health d-t2y519937 6q4-44r9il 354 7383d1 2016-10-26 2016-10-26 Outpatient [facility] 107 [id number] Access 00:00:00 00:00:00 H, PROVIDER Will garcia 2016-10-26 2016-10-26 Outpatient [facility] 0yt4z9w9-0z 0oj93s49-2 Access 00:00:00 00:00:00 H, PROVIDER e2-6oy1-87b 1e9-4c db-b Health 0-zl0rhe534 y77-e708yg 0f4 48ce57 2016-10-26 2016-10-26 Outpatient ISAURA, [facility] 2av5d8y0-4l e8 94wj20-3 Access 00:00:00 00:00:00 CHRISTINA e2-3ly5-37p s3o-8355- 9 Health 0-cr5abo947 b0b-o2p8p1 0f4 7373c9 2016-10-26 2016-10-26 Outpatient JOSE FRANCISCO, [facility] 7rh1a2e6-8f 5e5 3x0tz-7 Access 00:00:00 00:00:00 NAIF e2-1vt9-77v e24-5k99- b Health 0-ou9bgu197 000-ap9187 0f4 79f96a 2016-10-09 2016-10-09 Outpatient DIPIKA, [facility] 05w7909r-45 cf 6536cf-2 Access 00:00:00 00:00:00 LAVELLE 45-9u4f-x3e 038-47e9-8 Health d-z9a292850 93d-796d4d 354 1ee1de 2016-10-08 2016-10-08 Outpatient [facility] 107 [id number] Access 00:00:00 00:00:00 H, PROVIDER Will garcia 2016-10-08 2016-10-08 Outpatient [facility] 3de9f2z7-3r 6974f792-n Access 00:00:00 00:00:00 H, PROVIDER valerie1yw8-25a 757-44 91-a Health 0-ja7btu906 338-7c8ea0 0f4 k9t186 2016-10-08 2016-10-08 Outpatient CANAMAR, [facility] 30i8027y-07 46 gi9xv1-7 Access 00:00:00 00:00:00 LAVELLE Pepe1k9f-e6w x42-8x0u-o Health d-a5v121735 65d-fda44a 354 c196f4 2016-10-05 2016-10-05 Outpatient [facility] 107 [id number] Access 00:00:00 00:00:00 H, PROVIDER Will garcia 2016-10-05 2016-10-05 Outpatient [facility] 7tc5j1p2-3b 11j1ew1o-3 Access 00:00:00 00:00:00 H, PROVIDER tatyana7dh0-22c 137-4e 58-a Health 0-ug6gnc967 0aa-54193g 0f4 ws852c 2016-10-05 2016-10-05 Outpatient CANAMAR, [facility] 98v3297d-25 c9 8r76y9-t Access 00:00:00 00:00:00 LAVELLE Pepe2o1u-f9v 8k8-759d-l Health d-j6m321287 f54-zx03xa 354 [id number] 6047-06-29 2016-09-24 Outpatient [facility] 107 [id number] Access 00:00:00 00:00:00 H, PROVIDER Will garcia 2016-09-24 2016-09-24 Outpatient [facility] 3dx8o1y1-9y 04yt3i02-s Access 00:00:00 00:00:00 H, PROVIDER tatyana6xq4-20m 9da-4d 9e-a Health 0-qi1hvd657 f51-09149u 0f4 0747d9 2016-09-24 2016-09-24 Outpatient DELAROSA, [facility] 8gb7s1k7-9f af 174732-g Access 00:00:00 00:00:00 CHRISTINA e2-8ad6-20o u79-330g- b Health 0-wx0njt795 f2f-0p633v 0f4 7bee42 2016-09-24 2016-09-24 Outpatient OMORI, [facility] 1xa9s3u0-0u 060 9e7j1-7 Access 00:00:00 00:00:00 NAIF e2-9pc7-84i 4bb-4165- a Health 0-ia9iui471 98a-6p389r 0f4 13c232 2016-09-22 2016-09-22 Outpatient [facility] 107 [id number] Access 00:00:00 00:00:00 H, PROVIDER Will garcia 2016-09-22 2016-09-22 Outpatient [facility] 7md4j1j9-5j 1t1728dm-4 Access 00:00:00 00:00:00 H, PROVIDER e2-2lp1-02a 072-4c 2a-9 Health 0-pk6eim217 094-b1ac8e 0f4 1311cf 2016-09-22 2016-09-22 Outpatient TIMA, [facility] 7so3a8u1-0b 292 72ebd-f Access 00:00:00 00:00:00 OSMAN e2-3ug3-43x 330-4e57-a Health 0-pa7hzu698 92e-33cd44 0f4 8z6567 2016-09-22 2016-09-22 Outpatient CONTRERAS, [facility] 7jy6v5e4-7o 2 7p8uxa2-e Access 00:00:00 00:00:00 MIRTA e2-6jz9-22f 87b-4174-a Health 0-zn1ouq053 470-29g093 0f4 1573c2 2016-08-26 2016-08-26 Outpatient [facility] 107 [id number] Access 00:00:00 00:00:00 H, PROVIDER Will garcia 2016-08-26 2016-08-26 Outpatient [facility] 7ik5r3g4-6b q416xumh-x Access 00:00:00 00:00:00 H, PROVIDER e2-9zy5-36z a1b-4a 92-8 Health 0-ua7wxs084 l90-1jgo63 0f4 2ef161 2016-08-26 2016-08-26 Outpatient DELAROSA, [facility] 6bu2o0d8-8f da gyk90i-0 Access 00:00:00 00:00:00 CHRISTINA e2-6vh2-05b 81b-44be- a Health 0-ty7xcp552 452-9i6168 0f4 7h7772 2016-08-26 2016-08-26 Outpatient IRIZARRY, [facility] 6by4d1x4-6b afb 0kh14-6 Access 00:00:00 00:00:00 KATBRIGIDA e2-7ht2-41p 026-4182- b Health 0-ct2job814 11d-9a5159 0f4 2f0473 2016-08-26 2016-08-26 Outpatient OMORI, [facility] 0ej1g4u3-1z c21 101ca-e Access 00:00:00 00:00:00 NAIF e2-1qp6-86e f5b-8623- a Health 0-no2qqj321 ec7-e88811 0f4 92c4e9 2016-08-03 2016-08-03 Outpatient TIMA, [facility] htl114fo-4n e56 1re08-k Access 16:13:00 16:13:00 OSMAN 22-4926-a4f 17d-4116-b Health f-25729922q 320-16acc1 alexander 11df8e 2016-07-29 2016-07-29 Outpatient [facility] 107 [id number] Access 00:00:00 00:00:00 H, PROVIDER Will garcia 2016-07-29 2016-07-29 Outpatient [facility] 2ge1h3x7-0m 4iiy4632-5 Access 00:00:00 00:00:00 H, PROVIDER e2-0fg2-35s 2c6-43 ca-8 Health 0-dv8oup962 fe8-48fadf 0f4 54c2ba 2016-07-29 2016-07-29 Outpatient TIMA, [facility] qar167kq-8w a6f 83wt6-7 Access 00:00:00 00:00:00 OSMAN 22-4926-a4f 6ad-4eac-9 Health f-29799484e ab0-86e98c alexander n0210e 2016-07-29 2016-07-29 Outpatient DIANE, [facility] dup762jx-6f d c57ge28-7 Access 00:00:00 00:00:00 MIRTA 22-4926-a4f 8r5-65fk-5 Health f-23437258h 67a-3d9ddd alexander zfz195 2016-07-24 2016-07-24 Outpatient [facility] 107 [id number] Access 00:00:00 00:00:00 H, PROVIDER Will garcia 2016-07-24 2016-07-24 Outpatient [facility] 7up0e3j5-9q j76758z1-9 Access 00:00:00 00:00:00 H, PROVIDER e2-3rp3-08i 046-4f 02-a Health 0-vb1cve758 1n4-93xc01 0f4 062d54 2016-07-24 2016-07-24 Outpatient ISAURA, [facility] zeb624qo-7n d2 758a54-e Access 00:00:00 00:00:00 CHRISTINA 22-4926-a4f p0g-06of- b Health f-83309710m p7k-348375 alexander c19d1a 2016-07-24 2016-07-24 Outpatient JOSE FRANCISCO, [facility] ivm720nz-3l e3f h7f57-b Access 00:00:00 00:00:00 NAIF 22-4926-a4f l2p-91j7- 8 Health f-06661339f bba-be69db alexander 0b9f49 2016-07-17 2016-07-17 Outpatient ENRIQUE, [facility] nls959wg-3p 163 v85bl-0 Access 00:00:00 00:00:00 GAYTARI 22-4926-a4f i63-6957-j Health f-45153345d ec6-9ef36c alexander 257148 3208-04-20 2016-07-16 Outpatient [facility] 107 [id number] Access 00:00:00 00:00:00 H, PROVIDER Will garcia 2016-07-16 2016-07-16 Outpatient [facility] 1fz9m5c5-0k 816o33cd-3 Access 00:00:00 00:00:00 H, PROVIDER gabby-4xb9-23a f7c-42 66-9 Health 0-qu1vtn535 762-340d90 0f4 1876fa 2016-07-16 2016-07-16 Outpatient IRIZARRY, [facility] 90e6145j-80 692 6q8r9-k Access 00:00:00 00:00:00 KATELINE 45-7y7x-g2d 17f-442e- a Health d-a6o169926 ddf-5x4604 354 e90b6a 2016-07-16 2016-07-16 Outpatient DIANE, [facility] gdh298mv-7k c 0387fac-c Access 00:00:00 00:00:00 MIRTA 22-4926-a4f 06b-4903-a Health f-20120264o h84-8p8s75 alexander j15856 2016-07-16 2016-07-16 Outpatient CHARLY BARDALES [facility] 97l2968o-66 57njg977-q Access 00:00:00 00:00:00 45-3a9t-s7l 049-4b28-8 Health d-i1s408061 36f-84l370 354 mok077 2016-07-16 2016-07-16 Outpatient ENRIQUE, [facility] hed319fo-5t 2cb 022e5-d Access 00:00:00 00:00:00 GAYTARI 22-4926-a4f ec3-43e2-b Health f-28901825f 989-acffbb alexander acf4d2 2016-07-14 2016-07-14 Outpatient [facility] 107 [id number] Access 00:00:00 00:00:00 H, PROVIDER Will garcia 2016-07-14 2016-07-14 Outpatient [facility] 5hp5p9b5-6f 460o0f4a-2 Access 00:00:00 00:00:00 H, PROVIDER e2-0bc7-21v 52f-4d 8d-9 Health 0-ee8vat702 596-929d1e 0f4 5cbb75 2016-07-14 2016-07-14 Outpatient CONTRERAS, [facility] ayt983cd-0f f s270223-0 Access 00:00:00 00:00:00 MIRTA 22-4926-a4f 486-43ef-b Health f-27304381g 58e-c764a4 alexander 4a23b4 2016-07-14 2016-07-14 Outpatient TIMA, [facility] vwa344zp-6i b38 7la6t-8 Access 00:00:00 00:00:00 OSMAN 22-4926-a4f 6d9-4x07-x Health f-24972167k 532-cac9af alexander bf28b2 2016-07-06 2016-07-06 Outpatient [facility] 107 [id number] Access 00:00:00 00:00:00 H, PROVIDER Will garcia 2016-07-06 2016-07-06 Outpatient [facility] 6fu6r7r0-1x 334s6vi3-v Access 00:00:00 00:00:00 H, PROVIDER gabby-8py8-99s 7e3-46 ad-b Health 0-cf4zmh922 60a-79191l 0f4 769783 4459-04-10 2016-07-06 Outpatient TIMA, [facility] tqs874kg-8o ca6 0064f-c Access 00:00:00 00:00:00 OSMAN 22-4926-a4f 308-477e-b Health f-60541605a 2j6-e2d99p alexander befcac 2016-07-06 2016-07-06 Outpatient CONTRERAS, [facility] mpo006lr-3t a 94z106s-7 Access 00:00:00 00:00:00 MIRTA 22-4926-a4f c62-9b32-3 Health f-62187085c v7z-zho23h alexander o3784a 2016-07-01 2016-07-01 Outpatient [facility] 107 [id number] Access 00:00:00 00:00:00 H, PROVIDER Will garcia 2016-07-01 2016-07-01 Outpatient [facility] 4np6l4r0-8v y793f9u6-5 Access 00:00:00 00:00:00 H, PROVIDER gabby-9jy0-71p fbd-41 57-9 Health 0-cd4osy125 4k0-75146b 0f4 13dfc5 2016-07-01 2016-07-01 Outpatient CHARLY BARDALES [facility] 08v3133g-06 x49i9o39-5 Access 00:00:00 00:00:00 45-2f4e-j3m 8ef-44fa-9 Health d-n9c341925 145-03bbe1 354 734d1e 2016-07-01 2016-07-01 Outpatient IRIZARRY, [facility] 03z6749g-77 9f6 1438d-f Access 00:00:00 00:00:00 KATELINE 45-1p8r-z8u y67-0kap- 9 Health d-j0j066225 6v0-8zl1i6 354 449223 4216-04-02 2016-06-28 Outpatient TIMA, [facility] asp489ku-6t ba4 k5sp9-4 Access 00:00:00 00:00:00 OSMAN 22-4926-a4f fb6-4103-8 Health f-83442411l a50-3802x6 alexander 3m452x 2016-06-25 2016-06-25 Outpatient [facility] 107 [id number] Access 00:00:00 00:00:00 H, PROVIDER Will garcia 2016-06-25 2016-06-25 Outpatient [facility] 9ib7f6x8-3z 13711bb1-6 Access 00:00:00 00:00:00 H, PROVIDER gabby-8dm8-10l 98e-47 c8-a Health 0-cy0gru257 k2o-z401y0 0f4 4f1aaa 2016-06-25 2016-06-25 Outpatient TIMA, [facility] dbl255pn-5n 9e0 1ka6i-1 Access 00:00:00 00:00:00 OSMAN 22-4926-a4f 533-4298-a Health f-62708782a 8z8-a9s6sy alexander 654083 5245-03-30 2016-06-25 Outpatient DELAROSA, [facility] 42z0185z-29 5d 6ita7r-3 Access 00:00:00 00:00:00 CHRISTINA 45-0q8v-a8b v74-5372- a Health d-i2r705024 74d-bc9f79 354 v24372 2016-06-25 2016-06-25 Outpatient JOSE FRANCISCO, [facility] 97u2883s-51 643 x9ap6-8 Access 00:00:00 00:00:00 NAIF 45-5o1a-c0x 3y9-04r7- b Health d-b0h302297 def-275d83 354 cx954d 2016-06-25 2016-06-25 Outpatient DIANE, [facility] oph299br-8h f ru78940-4 Access 00:00:00 00:00:00 MIRTA 22-4926-a4f p0i-83xe-c Health f-33490163p 7w6-364im4 alexander bc1d2c 2016-06-08 2016-06-08 Outpatient [facility] 107 [id number] Access 00:00:00 00:00:00 H, PROVIDER Will garcia 2016-06-08 2016-06-08 Outpatient [facility] 4iq2q4t6-5h 13p665r6-n Access 00:00:00 00:00:00 H, PROVIDER e2-7bp8-71w d53-4b 39-b Health 0-lo1hex644 49d-bb0c97 0f4 a273a3 2016-06-08 2016-06-08 Outpatient CHARLY BARDALES [facility] 97j4182t-80 a0ul4809-1 Access 00:00:00 00:00:00 45-2b4v-e8d 84c-42c0-9 Health d-o5g348857 644-e9c44e 354 a4d7b9 2016-06-08 2016-06-08 Outpatient IRIZARRY, [facility] 01f9575s-98 cdb 86266-d Access 00:00:00 00:00:00 KATELINE 45-3a2m-j1s 41d-4957- b Health d-b1n730961 3f7-l5olld 354 38a8c2 2016-05-19 2016-05-19 Outpatient [facility] 107 [id number] Access 00:00:00 00:00:00 H, PROVIDER Will garcia 2016-05-19 2016-05-19 Outpatient [facility] 6vf6v7r0-0o 6t8dw3y8-6 Access 00:00:00 00:00:00 H, PROVIDER e2-3bk8-37b tonya-4c 95-a Health 0-tl7xbb779 w3l-m4jv4e 0f4 0e2daa 2016-05-19 2016-05-19 Outpatient TIMA, [facility] 0ii7a5l7-9g fc5 0l78p-2 Access 00:00:00 00:00:00 OSMAN e2-6fn1-00g ad3-40d5-b Health 0-ln5uhj291 bc9-a48b2d 0f4 75x034 2016-05-19 2016-05-19 Outpatient CONTRERAS, [facility] 9jh5c7e6-5w 8 yz352v5-1 Access 00:00:00 00:00:00 MIRTA pierre-1tv1-16x 5f0-6735-t Health 0-pv3ctl828 r48-v8g295 0f4 39beb0 2016-05-15 2016-05-15 Outpatient [facility] 107 [id number] Access 00:00:00 00:00:00 H, PROVIDER Will garcia 2016-05-15 2016-05-15 Outpatient [facility] 2bc1g8i3-9s z66tv07e-g Access 00:00:00 00:00:00 H, PROVIDER gabby-8th1-57s bbe-4f 60-b Health 0-gg5bvk465 941-41ae95 0f4 jg7005 2016-05-15 2016-05-15 Outpatient CONTRERAS, [facility] 79u1368h-02 f j9b6h85-1 Access 00:00:00 00:00:00 MIRTA 45-0p0r-z3q 9p2-3617-9 Health d-d4h789045 311-b6m792 354 835fae 2016-05-15 2016-05-15 Outpatient OMORI, [facility] 16p9814s-62 2b7 87n57-9 Access 00:00:00 00:00:00 NAIF 45-1i3g-s1v 373-4ac8- b Health d-s1p933424 2m7-f953ap 354 me1716 2016-05-15 2016-05-15 Outpatient ISAURA, [facility] 78e5882h-37 d3 9lbgk0-0 Access 00:00:00 00:00:00 CHRISTINA 45-9c8x-a6y d84-2063- a Health d-j9i427578 [facility]23566p 354 56x357 2016-05-15 2016-05-15 Outpatient IRIZARRY, [facility] 59l1092g-22 e10 y4524-0 Access 00:00:00 00:00:00 SUKUMAR 45-0p5y-l8h v1p-4a3a- a Health d-c5l967418 358-d132b6 354 e444e3 2016-05-11 2016-05-11 Outpatient [facility] 107 [id number] Access 00:00:00 00:00:00 H, PROVIDER Will garcia 2016-05-11 2016-05-11 Outpatient [facility] 4zo4p1q9-8w 5s738g8n-8 Access 00:00:00 00:00:00 H, PROVIDER e2-5ck3-14e 986-4e 16-9 [facility] 0-cv2kze524 4z1-54w482 0f4 461333 7945-02-13 2016-05-11 Outpatient FOREIGN, [facility] 60d0376u-99 92os56e2-1 Access 00:00:00 00:00:00 FRANKLIN 45-3u8f-r5h ee0-4498-a Health d-p2y219785 cb7-627bcc 354 62c67e 2016-05-11 2016-05-11 Outpatient DIANE, [facility] 18l4454w-33 f 0uw6uyv-z Access 00:00:00 00:00:00 MIRTA 45-1f9o-r1e 36e-4988-b Health d-j0p279078 [facility]-t16494 354 727e3d 2016-05-08 2016-05-08 Outpatient [facility] 107 [id number] Access 00:00:00 00:00:00 H, PROVIDER Will garcia 2016-05-08 2016-05-08 Outpatient [facility] 1mg6e1a2-8d 4263m30h-7 Access 00:00:00 00:00:00 H, PROVIDER e2-5rs7-31a e1f-48 2e-8 Health 0-jw2hze554 2db-qiy271 0f4 bc16c2 2016-05-08 2016-05-08 Outpatient SHELBY, [facility] 0rk5r7r1-0q 18c o6342-z Access 00:00:00 00:00:00 SAMANTHA e2-5kl2-29h 27d-42df- a Health 0-yu5osp333 bb7-78992k 0f4 88y711 2016-05-08 2016-05-08 Outpatient CONTRERAS, [facility] 6vq7w4x0-4v 3 p728m4u-9 Access 00:00:00 00:00:00 MIRTA e2-0op8-98b 353-45e9-a Health 0-wc2rmd357 be5-a06398 0f4 8412be 2016-05-05 2016-05-05 Outpatient SHELBY, [facility] 6jc8k0j5-6z 773 l6j7r-7 Access 00:00:00 00:00:00 SAMANTHA e2-9ce8-68d 09b-4a43- a Health 0-bj9wou437 83f-02ffd4 0f4 8eed89 2016-05-04 2016-05-04 Outpatient [facility] 107 [id number] Access 00:00:00 00:00:00 H, PROVIDER Will garcia 2016-05-04 2016-05-04 Outpatient [facility] 4sh6x0k8-4l 34anrtz0-9 Access 00:00:00 00:00:00 H, PROVIDER e2-7tk5-48a 964-4e b0-8 Health 0-ru6dso028 fd5-e283fd 0f4 1cba2b 2016-05-04 2016-05-04 Outpatient SHELBY, [facility] 6iz7o7i0-0z c7e 8u082-6 Access 00:00:00 00:00:00 SAMANTHA e2-4pj6-79h 677-4bd7- b Health 0-ti3qfe340 14f-f6fe70 0f4 63619p 2016-05-04 2016-05-04 Outpatient DIANE, [facility] 5rc3z7k3-4w d g87729y-t Access 00:00:00 00:00:00 MIRTA e2-3vo3-85p 294-4fb9-a Health 0-qm1jks573 51f-f628b0 0f4 t8930f 2016-04-27 2016-04-27 Outpatient [facility] 107 [id number] Access 00:00:00 00:00:00 H, PROVIDER Will garcia 2016-04-27 2016-04-27 Outpatient [facility] 6ic7k1a6-5y p575zo49-3 Access 00:00:00 00:00:00 H, PROVIDER april1ic4-90y 0c7-4f f1-8 Health 0-qh9taz715 de9-3790eb 0f4 4239d8 2016-04-27 2016-04-27 Outpatient DIANE, [facility] 8cs1e3t7-6q 3 2coy346-3 Access 00:00:00 00:00:00 MRITA e2-2qd2-92k 6r5-9t25-d Health 0-ta0edb176 2z8-s47944 0f4 1v325p 2016-04-27 2016-04-27 Outpatient DESTINY, [facility] 1dh0d1u9-9g edf 0a8e8-i Access 00:00:00 00:00:00 MELVA e2-6ah3-35k 4fb-4099-9 Health 0-qh9rmb875 ca8-42b5cf 0f4 047ded 2016-04-24 2016-04-24 Outpatient [facility] 107 [id number] Access 00:00:00 00:00:00 H, PROVIDER Will garcia 2016-04-24 2016-04-24 Outpatient [facility] 5tu1h8h4-6n tv5jyz9n-i Access 00:00:00 00:00:00 H, PROVIDER april9mc5-42s 5aa-41 ee-8 Health 0-ee6fck282 bfc-v45189 0f4 z1071m 2016-04-24 2016-04-24 Outpatient FOREIGN, [facility] 65k1974n-42 g92aw618-7 Access 00:00:00 00:00:00 FRANKLIN 45-3d5h-o1b 5c6-9o57-6 Health d-m5r969082 fee-5kz542 354 f7e46e 2016-04-24 2016-04-24 Outpatient ISAURA, [facility] 42q7675u-60 47 4i92z3-1 Access 00:00:00 00:00:00 CHRISTINA 45-8x9q-d7x 287-4cce- 9 Health d-f1v791471 7i6-025l06 354 0c8ebc 2016-04-24 2016-04-24 Outpatient SHELBY, [facility] 4iz1t8f3-8i 978 1g608-v Access 00:00:00 00:00:00 SAMANTHA e2-5px5-92a 3ec-4aa4- 8 Health 0-sy8zby436 l68-39han2 0f4 cfdb01 2016-04-24 2016-04-24 Outpatient DIANE, [facility] 2wv0y0i4-3k 3 w7go2g3-8 Access 00:00:00 00:00:00 MIRTA e2-0ga5-16s 39f-490c-b Health 0-kj6hmh828 8ce-a94b3d 0f4 611fdf 2016-04-24 2016-04-24 Outpatient DIANE, [facility] 45v1323v-83 2 4536416-[id number] Access 00:00:00 00:00:00 MIRTA 45-0y5v-z1u 86a-4439-a Health d-u7y855401 k0i-14y6xg 354 218d45 2016-04-24 2016-04-24 Outpatient IRIZARRY, [facility] 21p6371w-93 fc7 8687c-4 Access 00:00:00 00:00:00 KATELINE 45-8c9d-k6r l0d-8y37- a Health d-t8m629102 s2e-3nm448 354 9f3b30 2016-04-24 2016-04-24 Outpatient OMORI, [facility] [id number]-33 d38 f9o59-4 Access 00:00:00 00:00:00 NAIF 45-3d8i-w9s 768-4bfb- b Health d-l2z435038 h1t-85n9y6 354 4dd6fd 2016-04-23 2016-04-23 Outpatient [facility] 107 [id number] Access 00:00:00 00:00:00 H, PROVIDER Will garcia 2016-04-23 2016-04-23 Outpatient [facility] 6oe6k0d4-4j z6lb2k37-f Access 00:00:00 00:00:00 H, PROVIDER april6wj9-23m be8-4b 21-9 Health 0-gt2gsj591 3dc-5f1e84 0f4 22d77d 2016-04-23 2016-04-23 Outpatient DIANE, [facility] [id number]-17 6 l11n76t-w Access 00:00:00 00:00:00 MIRTA 45-3g8v-m3r 994-45ef-b Health d-u8e924440 2h6-g7693k 354 51ffb4 2016-04-23 2016-04-23 Outpatient FOREIGN, [facility] [id number]-97 40z526dg-h Access 00:00:00 00:00:00 FRANKLIN 45-7h0z-c8x eaf-4e51-9 Health d-g1m429269 4p1-r1d399 354 7999a2 2016-04-20 2016-04-20 Outpatient [facility] 107 [id number] Access 00:00:00 00:00:00 H, PROVIDER Will garcia 2016-04-20 2016-04-20 Outpatient [facility] 5eh8v1u3-7r [id number]-7 Access 00:00:00 00:00:00 H, PROVIDER april1oh0-44w a9b-45 15-9 Health 0-ep0bst220 6o9-725834 0f4 373532 7784-01-23 2016-04-20 Outpatient DESTINY, [facility] 4zm9q2m4-0r 407 77a6p-a Access 00:00:00 00:00:00 MELVA chen2vi3-13t 067-4720-a Health 0-se4kid912 679-47bd8d 0f4 636a60 2016-04-20 2016-04-20 Outpatient DIANE, [facility] 1xv3a8m7-8e 2 10blj9d-x Access 00:00:00 00:00:00 MIRTA e2-0fz6-61w 373-4fb8-8 Health 0-cs8hhl989 2y2-cl4315 0f4 3b9fb0 2016-04-17 2016-04-17 Outpatient [facility] 107 [id number] Access 00:00:00 00:00:00 H, PROVIDER Will garcia 2016-04-17 2016-04-17 Outpatient [facility] 4pl4y5p3-8i 2f948g0j-b Access 00:00:00 00:00:00 H, PROVIDER gabby-7al8-76j 7cd-42 99-a Health 0-th2dgo797 l01-f4a2x7 0f4 685c34 2016-04-07 2016-04-07 Outpatient [facility] [id number] Access 00:00:00 00:00:00 H, PROVIDER Will garcia 2016-04-07 2016-04-07 Outpatient [facility] 4ze2h8f2-1m 91w6dgf7-e Access 00:00:00 00:00:00 H, PROVIDER e2-9tf2-90f f6e-4e 34-8 Health 0-va7ugw328 026-e65fd2 0f4 3f7d68 2016-04-07 2016-04-07 Outpatient TIMA, [facility] xkg384wp-2o 561 i9p00-y Access 00:00:00 00:00:00 OSMAN 22-4926-a4f p1q-2zu9-i Health f-64945612m 89b-711bf4 alexander lg600s 2016-04-07 2016-04-07 Outpatient TIMA, [facility] 9uc4b1n3-6y 515 ffab0-4 Access 00:00:00 00:00:00 OSMAN e2-6qb2-02c 605-4ff2-a Health 0-cj7dxv924 18f-53g123 0f4 130b3b 2016-04-07 2016-04-07 Outpatient CONTRERAS, [facility] lae930st-6f 8 7317g99-x Access 00:00:00 00:00:00 MIRTA 22-4926-a4f 57e-49df-a Health f-07999022y 23e-006f72 alexander 0p708v 2016-04-06 2016-04-06 Outpatient [facility] 107 [id number] Access 00:00:00 00:00:00 H, PROVIDER Will garcia 2016-04-06 2016-04-06 Outpatient [facility] 5tm1w2e7-7i 5568h362-v Access 00:00:00 00:00:00 H, PROVIDER e2-8ur4-31t 933-4f 57-9 Health 0-zv6vsn848 cdf-f04f62 0f4 75w305 2016-04-06 2016-04-06 Outpatient TIMA, [facility] 5hi7l7t9-8x c72 m88l1-4 Access 00:00:00 00:00:00 OSMAN e2-3ik8-32a p8h-1y10-l Health 0-cg7yeg538 l54-06872p 0f4 ad40b7 2016-04-06 2016-04-06 Outpatient CONTRERAS, [facility] 6hb2b9j8-4k 3 we925p1-z Access 00:00:00 00:00:00 MIRTA e2-7zq9-31z eb2-4dd6-b Health 0-nv8vmh844 9fd-dc32d8 0f4 49l035 2016-03-26 2016-03-26 Outpatient [facility] 107 [id number] Access 00:00:00 00:00:00 H, PROVIDER Will garcia 2016-03-26 2016-03-26 Outpatient [facility] 0ag7s9x4-8h 1o60c6n5-u Access 00:00:00 00:00:00 H, PROVIDER e2-2ts5-78c f3d-41 a6-a Health 0-ws0dss354 ba9-6872c4 0f4 023040 0059-12-29 2016-03-26 Outpatient OMORI, [facility] vww710fh-2m 8bc 3zyp4-9 Access 00:00:00 00:00:00 NAIF Bravo4926-a4f 598-4848- a Health f-32396480i 098-293a08 alexander zx018u 2016-03-26 2016-03-26 Outpatient CONTRERAS, [facility] jta869mf-6k 1 qd95x2y-6 Access 00:00:00 00:00:00 MIRTA Bravo4926-a4f 6ee-4ff7-b Health f-63184036x 583-72eac5 alexander 326a7e 2016-03-26 2016-03-26 Outpatient IRIZARRY, [facility] gnw442jp-8q 576 2c5fg-3 Access 00:00:00 00:00:00 SUKUMAR Bravo4926-a4f 7r8-3g62- 8 Health f-78019897y 9cc-4o6234 alexander 0b4fc0 2016-03-25 2016-03-25 Outpatient [facility] 107 [id number] Access 00:00:00 00:00:00 H, PROVIDER Will garcia 2016-03-25 2016-03-25 Outpatient [facility] 8nt9a8l1-8r 44h54k09-l Access 00:00:00 00:00:00 H, PROVIDER e2-3iz5-28c dd6-45 84-8 Health 0-ye9dlx839 8j7-r97isr 0f4 is119q 2016-03-25 2016-03-25 Outpatient TIMA, [facility] ofn369ue-5g 560 21f45-1 Access 00:00:00 00:00:00 OMSAN Bravo4926-a4f 065-44df-b Health f-53563808o 819-2699d1 alexander 8f5a2f 2016-03-25 2016-03-25 Outpatient DIANE, [facility] omy101jo-6a 9 20ta5r5-x Access 00:00:00 00:00:00 MIRTA 22-4926-a4f e41-0v3g-4 Health f-62520366w 48f-8ad8b4 alexander b50eed 2016-03-06 2016-03-06 Outpatient [facility] [id number] Access 00:00:00 00:00:00 H, PROVIDER Will garcia 2016-03-06 2016-03-06 Outpatient [facility] 9av5i2z2-3t 4p2v28n5-8 Access 00:00:00 00:00:00 H, PROVIDER april7zr7-87g f9e-49 00-9 Health 0-tn3feb834 84c-0t7275 0f4 31y175 2016-03-06 2016-03-06 Outpatient DELAROSA, [facility] gcu633ae-3o da 80fadd-2 Access 00:00:00 00:00:00 CHRISTINA 22-4926-a4f 2q4-2g3c- a Health f-96572581g z55-613k43 alexander 4c9b58 2016-03-06 2016-03-06 Outpatient CONTRERAS, [facility] njk229ff-6z 3 0b2zhsk-w Access 00:00:00 00:00:00 MIRTA 22-4926-a4f 95d-4894-8 Health f-78014289q 41e-08a2d9 alexander [id number] 2016-03-03 2016-03-03 Outpatient TIMA, [facility] zev168ww-6l 11d [id number] Access 00:00:00 00:00:00 OSMAN 22-4926-a4f 1fb-4f0a-a Health f-[id number] alexander [id number] 2016-02-28 2016-02-28 Outpatient [facility] 107 [id number] Access 00:00:00 00:00:00 H, PROVIDER Will garcia 2016-02-28 2016-02-28 Outpatient [facility] 7hi0t5r0-3i [id number] Access 00:00:00 00:00:00 H, PROVIDER april5nz2-62l 122-40 d1-a Health 0-uv1yjq842 cd8-8e0dd4 0f4 c9ee35 2016-02-28 2016-02-28 Outpatient CONTRERAS, [facility] tfn703od-8h 3 [id number] Access 00:00:00 00:00:00 MIRTA 22-4926-a4f af1-4c49-8 Health f-81002794q 251-7271d4 alexander 5a4e2f 2016-02-28 2016-02-28 Outpatient TIMA, [facility] lvs445np-7f 30e 6wne0-0 Access 00:00:00 00:00:00 OSMAN 22-4926-a4f ca3-4e7f-9 Health f-[id number] 8k2-s416i1 alexander 5fb9b9 2016-02-25 2016-02-25 Outpatient GIGIGALObdulia, [facility] 6ly6l0t2-2t 882 x5vs1-n Access 00:00:00 00:00:00 MELVA e2-6ci6-28k 8n4-9oe5-2 Health 0-bl5rrh243 [id number]-l76510 0f4 be84b6 2016-02-24 2016-02-24 Outpatient GIGIGALObdulia, [facility] 3al6d3r0-9l 970 [id number]-8 Access 00:00:00 00:00:00 MELVA e2-1to7-68s 522-4d0a-8 Health 0-nx2jho326 3ed-40eaf8 0f4 0f12d2 2016-02-18 2016-02-18 Outpatient [facility] 107 [id number] Access 00:00:00 00:00:00 H, PROVIDER Will garcia 2016-02-18 2016-02-18 Outpatient [facility] 9zk6h7e3-1f [id number] Access 00:00:00 00:00:00 H, PROVIDER e2-8do0-27e 82f-43 1a-b Health 0-hw2gqn922 n9v-72009r 0f4 5abef2 2016-02-18 2016-02-18 Outpatient DESTINY, [facility] 1sm1i5t4-7o 2fa 25t34-2 Access 00:00:00 00:00:00 MELVA e2-7kq3-85z k8g-9q9f-w Health 0-vu6oht863 279-b1d14b 0f4 e2f42d 2016-02-18 2016-02-18 Outpatient DIANE, [facility] 8bj8h7v5-4r 8 [id number] Access 00:00:00 00:00:00 MIRTA e2-1rn1-47k 2i0-0179-h Health 0-pb6lwl208 alexander-e606c4 0f4 149c44 2016-02-10 2016-02-10 Outpatient TIMA, [facility] 6ab3y2m6-0u 0be 8uee4-h Access 00:00:00 00:00:00 OSMAN e2-8wx1-40e 0eb-4eb1-a Health 0-pr1hay703 54f-082876 0f4 64ba33 2016-02-06 2016-02-06 Outpatient ALAM, [facility] [id number] [facility] 10:32:12 15:36:05 NAIMA Omer Medicin e 2016-01-30 2016-01-30 Outpatient TIMA, [facility] ccm453yj-5f 003 [id number] Access 00:00:00 00:00:00 OSMAN 22-4926-a4f t99-7e12-e Health f-[id number] 30e-776d1f alexander b29d1e 2016-01-28 2016-01-28 Outpatient [facility] 107 [id number] Access 00:00:00 00:00:00 H, PROVIDER Will garcia 2016-01-28 2016-01-28 Outpatient [facility] 0pi3x7g7-7k [id number] Access 00:00:00 00:00:00 H, PROVIDER e2-2ly5-38t d0d-4c 90-b Health 0-ev9rpk636 cac-0ib887 0f4 21fba1 2016-01-28 2016-01-28 Outpatient ZAGALA, [facility] 5om6p9g1-5v 2ec x08ef-5 Access 00:00:00 00:00:00 MELVA e2-8uw6-73x t18-3sz1-5 Health 0-li1wod177 6x8-g304ed 0f4 5909cc 2016-01-28 2016-01-28 Outpatient TIMA, [facility] 8yl6r9e5-7q af0 1z4d9-u Access 00:00:00 00:00:00 OSMAN e2-4pw0-66x 855-4c09-9 Health 0-jb8xxf635 6t4-bd9b74 0f4 dd65fd 2016-01-28 2016-01-28 Outpatient CONTRERAS, [facility] 7ws6u9g3-1p 2 [id number] Access 00:00:00 00:00:00 MIRTA e2-4ii7-66a 4j5-9r24-5 Health 0-wl0iep747 j47-b46b85 0f4 226cf1 2016-01-27 2016-01-27 Outpatient [facility] 107 [id number] Access 00:00:00 00:00:00 H, PROVIDER Will garcia 2016-01-27 2016-01-27 Outpatient [facility] 3hv6d6h9-8w [id number] Access 00:00:00 00:00:00 H, PROVIDER e2-9pk6-98h 6ce-4b 28-b Health 0-kq9shh305 4k5-43k619 0f4 311f8d 2016-01-27 2016-01-27 Outpatient TIMA, [facility] bsp904dt-8e 169 t0w02-z Access 00:00:00 00:00:00 OSMAN 22-4926-a4f f16-29gt-v Health f-[id number]-226667 alexander [id number] 2016-01-21 2016-01-21 Outpatient [facility] 107 [id number] Access 00:00:00 00:00:00 H, PROVIDER Will garcia 2016-01-21 2016-01-21 Outpatient [facility] [id number] [id number] Access 00:00:00 00:00:00 H, PROVIDER e2-0ic8-00z be4-45 98-a Health 0-ms1qwq575 79f-33e35e 0f4 b6a3ba 2016-01-21 2016-01-21 Outpatient MATHEUSZ, [facility] ldf187pd-9w b0 qbd321-b Access 00:00:00 00:00:00 MAEVE 22-4926-a4f 971-46ae-b Health f-[id number] 5db-ceb82a alexander 06ca45 2016-01-21 2016-01-21 Outpatient OMORI, [facility] vyl984vo-2u c83 f74c7-y Access 00:00:00 00:00:00 NAIF Bravo4926-a4f 4h6-8w6u- b Health f-14449579t 44d-88f26d alexander n7x229 2015-10-02 2015-10-02 Outpatient OMORI, [facility] rmc347kj-0u c00 [id number]-5 Access 00:00:00 00:00:00 NAIF Bravo4926-a4f 809-4330- b Health f-[id number] 4j9-tyw012 alexander 9ebe0b 2015-10-01 2015-10-01 Outpatient [facility] 107 [id number] Access 00:00:00 00:00:00 H, PROVIDER Will garcia 2015-10-01 2015-10-01 Outpatient [facility] 8gj4l8b5-8l [id number] Access 00:00:00 00:00:00 H, PROVIDER gabby-8dw1-66r ed0-46 e6-9 Health 0-uc2wqw765 57e-4efa05 0f4 nsh375 2015-10-01 2015-10-01 Outpatient OMORI, [facility] zsy094mc-5r 83d ah2d7-b Access 00:00:00 00:00:00 NAIF Bravo4926-a4f 2c3-13z6- 9 Health f-65792768h x26-va1966 alexander qs086s 2015-10-01 2015-10-01 Outpatient CONTRERAS, [facility] crm465zy-7x 4 gphv67b-8 Access 00:00:00 00:00:00 MIRTA Sameer-4926-a4f 9r4-8ap5-t Health f-21213093m q71-6s52w7 alexander c704de 2015-09-26 2015-09-26 Outpatient [facility] [id number] Access 00:00:00 00:00:00 H, PROVIDER Will garcia 2015-09-26 2015-09-26 Outpatient [facility] 3ro6r8l2-2z [id number] Access 00:00:00 00:00:00 H, PROVIDER april7cx3-44j 8ad-4b 20-9 Health 0-ii5dsb240 1w0-i90j3x 0f4 1f3c6d 2015-09-26 2015-09-26 Outpatient DIANE, [facility] qef071cn-7b 6 3e9r7ev-0 Access 00:00:00 00:00:00 MIRTA 22-4926-a4f 121-4c1d-b Health f-[id number] a8v-6t7g19 alexander [id number] 2015-09-26 2015-09-26 Outpatient JOSE FRANCISCO, [facility] gkt099uc-2x b24 [id number] Access 00:00:00 00:00:00 NAIF 22-4926-a4f 457-48de- a Health f-[id number] b17-h73x9n alexander 6t957g 2015-09-12 2015-09-12 Outpatient [facility] 107 [id number] Access 00:00:00 00:00:00 H, PROVIDER Will garcia 2015-09-12 2015-09-12 Outpatient [facility] 2ca1r9d3-8k [id number] Access 00:00:00 00:00:00 H, PROVIDER april8xm0-53i 126-41 a3-b [facility] 0-wk5how436 [id number] 0f4 48d9d2 2015-08-21 2015-08-21 Outpatient [facility] 107 [id number] Access 00:00:00 00:00:00 H, PROVIDER Will garcia 2015-08-21 2015-08-21 Outpatient [facility] 2xm7p9r2-2h [id number] Access 00:00:00 00:00:00 H, PROVIDER april3rn1-52f f2e-44 8f-b [facility] 0-gb3zmc560 y7v-82154k 0f4 e6de39 2015-05-22 2015-05-22 Outpatient [facility] 107 [id number] Access 00:00:00 00:00:00 H, PROVIDER Will garcia 2015-05-22 2015-05-22 Outpatient [facility] 8pa0o2e9-4n [id number] Access 00:00:00 00:00:00 H, PROVIDER e2-3om0-95j 2c0-43 14-b Health 0-gt4zxz458 73a-m11297 0f4 1acb06 2015-05-21 2015-05-21 Outpatient [facility] 107 [id number] Access 00:00:00 00:00:00 H, PROVIDER Will garcia 2015-05-21 2015-05-21 Outpatient [facility] 0dh4v9x1-2x [id number] Access 00:00:00 00:00:00 H, PROVIDER e2-9zt0-99w 9f9-45 a3-8 Health 0-oc9jgh809 5bd-493e87 0f4 33z491 2015-05-03 2015-05-03 Outpatient JONAS, [facility] 5ts2o8c4-6x 56 [id number] Access 15:36:00 15:36:00 MAEVE e2-8px0-18w v3x-3ec5-d Health 0-jt3qef991 9w4-710dx7 0f4 [id number] 1697-02-05 2015-05-03 Outpatient [facility] 107 [id number] Access 00:00:00 00:00:00 H, PROVIDER Will garcia 2015-05-03 2015-05-03 Outpatient [facility] 1ej5e7o8-1y [id number] Access 00:00:00 00:00:00 H, PROVIDER e2-8of9-35g da3-40 14-8 Health 0-vz0lwb898 af9-0c4141 0f4 f3f5e9 2015-05-03 2015-05-03 Outpatient DIANE, [facility] 8rr9z0t8-3a 3 [id number]-5 Access 00:00:00 00:00:00 MIRTA e2-1bb2-21r y29-88w0-8 Health 0-ap1tyi237 h6e-0oj36h 0f4 e671aa 2015-03-20 2015-03-20 Outpatient [facility] 107 [id number] Access 00:00:00 00:00:00 H, PROVIDER Will garcia 2015-03-20 2015-03-20 Outpatient [facility] 5ef2b4f2-7s [id number] Access 00:00:00 00:00:00 H, PROVIDER valerie5sq5-38l da0-41 96-8 Health 0-ud9tdc316 65e-54ee37 0f4 67r313 2015-03-15 2015-03-15 Outpatient [facility] 107 [id number] Access 00:00:00 00:00:00 H, PROVIDER Will garcia 2015-03-15 2015-03-15 Outpatient [facility] 5vx0x0v3-0w [id number] Access 00:00:00 00:00:00 H, PROVIDER tatyana1ka6-67t 7a2-4a a9-b Health 0-pi5lxz749 6o7-3s805s 0f4 4d45ed 2015-03-06 2015-03-06 Outpatient [facility] 107 [id number] Access 00:00:00 00:00:00 H, PROVIDER Will garcia 2015-03-06 2015-03-06 Outpatient [facility] 1ev5c9d6-8y [id number] Access 00:00:00 00:00:00 H, PROVIDER tatyana4bb5-57d fdb-4d 58-a Health 0-vy3ejq678 d7y-35ek49 0f4 [id number] 2015-02-19 2015-02-19 Outpatient [facility] 107 [id number] Access 00:00:00 00:00:00 H, PROVIDER Will garcia 2015-02-19 2015-02-19 Outpatient [facility] 0jo9i8o6-9b [id number] Access 00:00:00 00:00:00 H, PROVIDER tatyana1au5-99m 127-4b 58-a Health 0-lx4hod734 2d4-z69wp4 0f4 e12e02 2015-02-18 2015-02-18 Outpatient [facility] 107 [id number] Access 00:00:00 00:00:00 H, PROVIDER Will garcia 2015-02-18 2015-02-18 Outpatient [facility] 9up2g1u9-6p [id number] Access 00:00:00 00:00:00 H, PROVIDER emeli d47-48 5c-8 Health 0-kk7ncq330 5cb-5cface 0f4 c58e5d 2015-02-12 2015-02-12 Outpatient [facility] 107 [id number] Access 00:00:00 00:00:00 H, PROVIDER Will garcia 2015-02-12 2015-02-12 Outpatient [facility] 2zp6k3g3-3d [id number] Access 00:00:00 00:00:00 H, PROVIDER emeli 279-4f 28-b Health 0-ut5eqa305 ed6-28f39e 0f4 5fa5a5 2015-02-11 2015-02-11 Outpatient [facility] 107 [id number] Access 00:00:00 00:00:00 H, PROVIDER Will garcia 2015-02-11 2015-02-11 Outpatient [facility] 4at9x5k9-6l [id number] Access 00:00:00 00:00:00 H, PROVIDER emeli 925-41 78-b Health 0-ad3duo755 6i0-6z0678 0f4 559f90 2015-02-06 2015-02-06 Outpatient [facility] 107 [id number] Access 00:00:00 00:00:00 H, PROVIDER Will garcia 2015-02-06 2015-02-06 Outpatient [facility] 9vw3v4y5-8h [id number] Access 00:00:00 00:00:00 H, PROVIDER emeli 2a8-49 15-a Health 0-xa8ziy229 074-2ug479 0f4 e08d71 2015-01-24 2015-01-24 Outpatient [facility] 107 [id number] Access 00:00:00 00:00:00 H, PROVIDER Will garcia 2015-01-24 2015-01-24 Outpatient [facility] 9zv9s9f4-6z [id number]-i Access 00:00:00 00:00:00 H, PROVIDER tatyana6ic3-08e f80-44 d8-a Health 0-hz9urh408 180-30942e 0f4 5c4c97 2015-01-08 2015-01-08 Outpatient [facility] 107 [id number] Access 00:00:00 00:00:00 H, PROVIDER Will garcia 2015-01-08 2015-01-08 Outpatient [facility] 8ih9n3u2-3h [id number] Access 00:00:00 00:00:00 H, PROVIDER april0mb3-16j 64f-4c a3-9 Health 0-qb8ynz199 o96-61on12 0f4 [id number] 2015-01-01 2015-01-01 Outpatient [facility] 107 [id number] Access 00:00:00 00:00:00 H, PROVIDER Will garcia 2015-01-01 2015-01-01 Outpatient [facility] 1hc6w1x1-5d [id number] Access 00:00:00 00:00:00 H, PROVIDER april6fd3-00h 53f-43 97-b Health 0-go7img622 db7-37j967 0f4 2f88f9 2014-12-27 2014-12-27 Outpatient [facility] 107 [id number] Access 00:00:00 00:00:00 H, PROVIDER Will garcia 2014-12-27 2014-12-27 Outpatient [facility] [id number] Access 00:00:00 00:00:00 H, PROVIDER april5ar0-17m ca7-44 22-9 Health 0-jq5kme667 7s6-6t2473 0f4 3eed3a 2014-12-07 2014-12-07 Outpatient [facility] 107 [id number] Access 00:00:00 00:00:00 H, PROVIDER Will garcia 2014-12-07 2014-12-07 Outpatient [facility] 8dp8l6v0-7e [id number] Access 00:00:00 00:00:00 H, PROVIDER valerie0qd9-51l c82-4a dd-a Health 0-ca5npc635 6ab-de3ca6 0f4 8aee2f 2014-05-08 2014-05-08 Outpatient [facility] 107 [id number] Access 00:00:00 00:00:00 H, PROVIDER Will garcia 2014-05-08 2014-05-08 Outpatient [facility] 0dq7e4s9-4j [id number] Access 00:00:00 00:00:00 H, PROVIDER leydi97f e34-45 36-8 Health 0-sx6pgt165 537-378bc5 0f4 aa2e28 2014-04-26 2014-04-26 Outpatient [facility] 107 [id number] Access 00:00:00 00:00:00 H, PROVIDER Will garcia 2014-04-26 2014-04-26 Outpatient [facility] 4ww2f4k2-9e [id number]-j Access 00:00:00 00:00:00 H, PROVIDER leydi97f ed4-4c e6-b Health 0-yf9vrn067 ef8-5a22de 0f4 4fecab 2014-04-25 2014-04-25 Outpatient [facility] 107 [id number] Access 00:00:00 00:00:00 H, PROVIDER Will garcia 2014-04-25 2014-04-25 Outpatient [facility] 8ez4x5t4-4e [id number] Access 00:00:00 00:00:00 H, PROVIDER emeli 477-46 7f-9 Health 0-ob7gtk748 66f-fe43c4 0f4 574f68 2014-04-09 2014-04-09 Outpatient [facility] 107 [id number] Access 00:00:00 00:00:00 H, PROVIDER Will garcia 2014-04-09 2014-04-09 Outpatient [facility] 7eu3g9b3-6n [id number] Access 00:00:00 00:00:00 H, PROVIDER emeli 783-44 d2-9 Health 0-tk9zbt247 318-1y801k 0f4 1208b1 2014-03-12 2014-03-12 Outpatient [facility] 107 [id number] Access 00:00:00 00:00:00 H, PROVIDER Will garcia 2014-03-12 2014-03-12 Outpatient [facility] [id number] [id number] Access 00:00:00 00:00:00 H, PROVIDER e2-6gq7-48s d5c-45 e4-8 [place] [address]-yq0jkx966 398-22070m 0f4 5668b3 Results Test Description Test Time Test Comments Results Result Comments Source Panel Description: Albumin/Creatinine Ratio,Urine 2021-01-30 17:11:00 Test Item Value Reference Range Interpretation Comme nts Creatinine, Urine (test code 54.5 mg/dL Not Estab. = 2161-8) Albumin, Urine (test code = 2814.8 ug/mL Not Estab. Results confirmed 38327-5) ondilution.<br/ >
Perform ed by:
Constantine hayley Vincent ()

Alb/Creat Ratio (test code = 5165 mg/gcreat 0-29 H 9318-7) Normal : 0 - 29 Moderately incr eased: 30 - 300 Sev erely increased: >300

Performed by:
[facility] ()

[facility] Description: Albumin/Creatinine Ratio,[id number] 17:11:00 Test Item Value Reference Range Interpretation Comments Creatinine, Urine 54.5 mg/dL Not Estab. (test code = 2161-8) Albumin, Urine 2814.8 ug/mL Not Estab. Results confi rmed (test code = ondilution.<br/ >
P 27934-5) [facility]:
[facility] ()

Alb/Creat Ratio 5165 mg/gcreat 0-29 H (test code = Normal: 9318-7) 0 - 29 Moderately incr eased: 30 - 300 Severely increa sed: >300

Perfo rmed by:
Alyssa Kaur (HD)

[facility] Description: Natriuretic peptide B [Mass/volume] in Serum or [id number] 13:36:00 Test Item Value Reference Range Interpretation Comments B-Type Natriuretic Peptide (test 396.8 pg/mL 0.0-100.0 H code = 44146-9) [facility] Description: Natriuretic peptide B [Mass/volume] in Serum or [id number] 13:36:00 Test Item Value Reference Range Interpretation Comments B-Type Natriuretic Peptide (test 396.8 pg/mL 0.0-100.0 H code = 82549-3) [facility] Description: Hemoglobin A1c/Hemoglobin.total in Blood 2021-01-30 12:27:00 Test Item Value Reference Range Interpretation Comments Hemoglobin A1c (test code 8.7 % 4.8-5.6 H = 4548-4) . Prediabetes: 5. 7 - 6.4 Diabetes : >6.4 Glycemic control for adults with diabetes: <7.0

P erformed by:
[facility] ([place])

[facility] Description: Hemoglobin A1c/Hemoglobin.total in Blood 2021-01-30 12:27:00 Test Item Value Reference Range Interpretation Comments Hemoglobin A1c (test code 8.7 % 4.8-5.6 H = 4548-4) . Prediabetes: 5. 7 - 6.4 Diabetes : >6.4 Glycemic control for adults with diabetes: <7.0

P erformed by:
[facility] ([place])

[facility] Description: C reactive protein [Mass/volume] in Serum or [id number] 04:53:00 Test Item Value Reference Range Interpretation Comments C-Reactive Protein, Quant (test code 13 mg/L 0-10 H = 1987-07) [facility] Description: C reactive protein [Mass/volume] in Serum or [id number] 04:53:00 Test Item Value Reference Range Interpretation Comments C-Reactive Protein, Quant (test code 13 mg/L 0-10 H = 1987-07) [facility] Description: 25-hydroxyvitamin D3 [Mass/volume] in Serum or [id number] 03:48:00 Test Item Value Reference Range Interpretation Comments Vitamin D, 17.6 ng/mL 30.0-100.0 L Vitamin D defic iency has 25-Hydroxy (test been define d by the code = 50124-8) [employer] of [employer] and an Endocrine So ety practice guidel ine as alevel of serum 25-OH vitamin D less than 20 ng/mL (1,2).The Endocrine Society went on to further define vitamin Dinsufficiency as a level between 21 and 29 ng/mL (2).1. IOM ([facility] of Medicine). 2010 . Dietary reference int akes for calcium and D. [facility]: The [employer] .2. Ela Oliveros, Stephane EMERSON, et al. Evaluatio n, treatment, and prevention of vitamin D deficiency: an Endocrine Society clinica l practice guideline. [place] EM. 2010; 96(7):191-.< br/>
P erformed by:
[facility] (HD)

[facility] Description: 25-hydroxyvitamin D3 [Mass/volume] in Serum or [id number] 03:48:00 Test Item Value Reference Range Interpretation Comments Vitamin D, 17.6 ng/mL 30.0-100.0 L Vitamin D defic iency has 25-Hydroxy (test been define d by the code = 25793-8) [employer] of [employer] and an Endocrine So [facility] guidel ine as alevel of serum 25-OH vitamin D less than 20 ng/mL (1,2).The Endocrine Society went on to further define vitamin Dinsufficiency as a level between 21 and 29 ng/mL (2).1. IOM (Ins [facility] of Medicine). 2010 . Dietary reference int akes for calcium and D. [facility]: The [employer] .2. Ela Oliveros, Stephane EMERSON, et al. Evaluatio n, treatment, and prevention of vitamin D deficiency: an Endocrine Society clinica l practice guideline. [place] EM. 2010; 96(7):191-.< br/>
P erformed by:
[facility] (HD)

[facility] Description: Erythrocyte sedimentation rate by Westergren [id number] 03:06:00 Test Item Value Reference Range Interpretation Comments Sedimentation Rate-Westergren (test 27 mm/hr 0-15 H code = 4537-7) [facility] Description: Erythrocyte sedimentation rate by Westergren [id number] 03:06:00 Test Item Value Reference Range Interpretation Comments Sedimentation Rate-Westergren (test 27 mm/hr 0-15 H code = 4537-7) [facility] Description: Comp. Metabolic Panel (14)2021-01-30 02:57:00 Test Item Value Reference Range Interpretation Comments Glucose (test code 256 mg/dL 65-99 H = 2345-7) BUN (test code = 57 mg/dL 6-24 H 3094-0) Creatinine (test 2.38 mg/dL 0.76-1.27 H code = 2160-0) eGFR If NonAfricn 31 >59 L Am (test code = mL/min/1.73 15928-4) eGFR If Africn Am 36 >59 L In accor dance with (test code = mL/min/1.73 recommendations from 75250-3) the NKF-ASN [place] force, [facility] is in the process of updating its eG FR calculation to the 2020 CKD-EPI creatinine equa tion that estimates kidney function witho ut a race variable.
< br/>Per formed by:
[facility] ([place])

BUN/Creatinine 24 9-20 H Ratio (test code = 3097-3) Sodium (test code = 139 mmol/L 573-940 4704-2) Potassium (test 4.9 mmol/L 3.5-5.2 code = 2823-3) Chloride (test code 100 mmol/L 96-106 = 2075-0) Carbon Dioxide, 23 mmol/L 20-29 Total (test code = 2027-) Calcium (test code 9.0 mg/dL 8.7-10.2 = 16480-4) Protein, Total 6.5 g/dL 6.0-8.5 (test code = 2885-2) Albumin (test code 3.4 g/dL 4.0-5.0 L = 1751-7) Globulin, Total 3.1 g/dL 1.5-4.5 (test code = 57103-9) A/G Ratio (test 1.1 1.2-2.2 L code = 1759-0) Bilirubin, Total 0.4 mg/dL 0.0-1.2 (test code = 1975-2) Alkaline 124 IU/L 44-121 H Phosphatase (test Pl ease note code = 6768-6) reference int erval change
<b r/>Perf ormed by:
[facility] ([place])

AST (SGOT) (test 17 IU/L 0-40 code = 1920-8) ALT (SGPT) (test 23 IU/L 0-44 code = 1742-6) [facility] Description: Phosphate [Mass/volume] in Serum or Plasma 2021-01-30 02:57:00 Test Item Value Reference Range Interpretation Comments Phosphorus (test code = 2777-1) 4.5 mg/dL 2.8-4.1 H [facility] Description: Magnesium [Mass/volume] in Serum or Plasma 2021-01-30 02:57:00 Test Item Value Reference Range Interpretation Comments Magnesium (test code = 21979-4) 1.8 mg/dL 1.6-2.3 [facility] Description: Microscopic Cmqelgicryl6202-20-00 02:57:00 Test Item Value Reference Range Interpretation Comments WBC (test code = 5821-4) None seen 0-5 RBC (test code = 21656-6) None seen 0-2 Epithelial Cells (non renal) (test None seen 0-10 code = 5787-7) Epithelial Cells (renal) (test code = 72923-9) Casts (test code = 33988-5) None seen None seen Cast Type (test code = 16394-2) Crystals (test code = 5783-6) Crystal Type (test code = 5782-8) Mucus Threads (test code = 8247-9) Bacteria (test code = 5769-5) None seen None seen/Few Yeast (test code = 5822-2) Trichomonas (test code = 5813-1) Comment (test code = 69701-3) [facility] Description: Urate [Mass/volume] in Serum or Plguog0728-37-85 02:57:00 Test Item Value Reference Range Interpretation Comments Uric Acid (test 11.5 mg/dL 3.8-8.4 H code = 3084-1) Therapeutic t arget for gout patients: <6.0

P erformed by:
[facility] ([place])

[facility]: Comp. Metabolic Panel (14)2021-01-30 02:57:00 Test Item Value Reference Range Interpretation Comments Glucose (test code 256 mg/dL 65-99 H = 2345-7) BUN (test code = 57 mg/dL 6-24 H 3094-0) Creatinine (test 2.38 mg/dL 0.76-1.27 H code = 2160-0) eGFR If NonAfricn 31 >59 L Am (test code = mL/min/1.73 79425-9) eGFR If Africn Am 36 >59 L In accor dance with (test code = mL/min/1.73 recommendations from 80588-7) the NKF-ASN [place] force, [facility] is in the process of updating its eG FR calculation to the 2020 CKD-EPI creatinine equa tion that estimates kidney function witho ut a race variable.
< br/>Per formed by:
[facility] ([place])

BUN/Creatinine 24 9-20 H Ratio (test code = 3097-3) Sodium (test code = 139 mmol/L 764-143 3408-2) Potassium (test 4.9 mmol/L 3.5-5.2 code = 2823-3) Chloride (test code 100 mmol/L 96-106 = 2075-0) Carbon Dioxide, 23 mmol/L 20-29 Total (test code = 2027-9) Calcium (test code 9.0 mg/dL 8.7-10.2 = 11218-9) Protein, Total 6.5 g/dL 6.0-8.5 (test code = 2885-2) Albumin (test code 3.4 g/dL 4.0-5.0 L = 1751-7) Globulin, Total 3.1 g/dL 1.5-4.5 (test code = 93913-5) A/G Ratio (test 1.1 1.2-2.2 L code = 1759-0) Bilirubin, Total 0.4 mg/dL 0.0-1.2 (test code = 1975-2) Alkaline 124 IU/L 44-121 H Phosphatase (test Pl ease note code = 6768-6) reference int erval change
<b r/>Perf ormed by:
L [facility] ([place])

AST (SGOT) (test 17 IU/L 0-40 code = 1920-8) ALT (SGPT) (test 23 IU/L 0-44 code = 1742-6) [facility] Description: Phosphate [Mass/volume] in Serum or Plasma 2021-01-30 02:57:00 Test Item Value Reference Range Interpretation Comments Phosphorus (test code = 2777-1) 4.5 mg/dL 2.8-4.1 H [facility] Description: Magnesium [Mass/volume] in Serum or Plasma 2021-01-30 02:57:00 Test Item Value Reference Range Interpretation Comments Magnesium (test code = 23054-2) 1.8 mg/dL 1.6-2.3 [facility] Description: Microscopic [id number] 02:57:00 Test Item Value Reference Range Interpretation Comments WBC (test code = 5821-4) None seen 0-5 RBC (test code = 29452-7) None seen 0-2 Epithelial Cells (non renal) (test None seen 0-10 code = 5787-7) Epithelial Cells (renal) (test code = 23816-9) Casts (test code = 64523-3) None seen None seen Cast Type (test code = 71426-6) Crystals (test code = 5783-6) Crystal Type (test code = 5782-8) Mucus Threads (test code = 8247-9) Bacteria (test code = 5769-5) None seen None seen/Few Yeast (test code = 5822-2) Trichomonas (test code = 5813-1) Comment (test code = 57483-4) [facility] Description: Urate [Mass/volume] in Serum or [id number] 02:57:00 Test Item Value Reference Range Interpretation Comments Uric Acid (test 11.5 mg/dL 3.8-8.4 H code = 3084-1) Therapeutic t arget for gout patients: <6.0

P erformed by:
[facility] ()

[facility] Description: Urinalysis, [id number] 02:24:00 Test Item Value Reference Range Interpretation Comments Specific [place] (test 1.017 1.005-1.030 code = 2965-2) pH (test code = 5.5 5.0-7.5 5803-2) Urine-Color (test code Yellow Yellow = 5778-6) Appearance (test code Clear Clear = 5767-9) WBC Esterase (test Negative Negative code = 5799-2) Protein (test code = 4+ Negative/Trace A 98037-7) Glucose (test code = 1+ Negative A 2349-9) Ketones (test code = Negative Negative 2514-8) Occult Blood (test Trace Negative A code = 5794-3) Bilirubin (test code = Negative Negative 5770-3) Urobilinogen,Semi-Qn 0.2 mg/dL 0.2-1.0 (test code = 14360-4) Nitrite, Urine (test Negative Negative code = 5802-4) Microscopic See below: Microscopic was Examination (test code indic ronaldo isbell was = 52096-0) performed.

P erformed by:
[facility] ()

[facility] Description: Urinalysis, [id number] 02:24:00 Test Item Value Reference Range Interpretation Comments Specific [place] (test 1.017 1.005-1.030 code = 2965-2) pH (test code = 5.5 5.0-7.5 5803-2) Urine-Color (test code Yellow Yellow = 5778-6) Appearance (test code Clear Clear = 5767-9) WBC Esterase (test Negative Negative code = 5799-2) Protein (test code = 4+ Negative/Trace A 14237-6) Glucose (test code = 1+ Negative A 2349-9) Ketones (test code = Negative Negative 2514-8) Occult Blood (test Trace Negative A code = 5794-3) Bilirubin (test code = Negative Negative 5770-3) Urobilinogen,Semi-Qn 0.2 mg/dL 0.2-1.0 (test code = 26663-2) Nitrite, Urine (test Negative Negative code = 5802-4) Microscopic See below: Microscopic was Examination (test code indic ated and was = 07964-7) performed.

P erformed by:
[facility] ([place])

[facility] Description: Urinalysis, [id number] 02:24:00 [facility]: Urinalysis, Complete 2021-01-30 02:24:00Microscopic ExaminationAccess [facility] Description: Natriuretic peptide B [Mass/volume] in Serum or [id number] 13:54:00 Test Item Value Reference Range Interpretation Comments B-Type Natriuretic Peptide (test 427.5 pg/mL 0.0-100.0 H code = 09019-4) [facility] Description: Natriuretic peptide B [Mass/volume] in Serum or [id number] 13:54:00 Test Item Value Reference Range Interpretation Comments B-Type Natriuretic Peptide (test 427.5 pg/mL 0.0-100.0 H code = 58972-6) [facility] Description: Natriuretic peptide B [Mass/volume] in Serum or [id number] 13:54:00 Test Item Value Reference Range Interpretation Comments B-Type Natriuretic Peptide (test 427.5 pg/mL 0.0-100.0 H code = 10955-4) [facility] Description: Natriuretic peptide B [Mass/volume] in Serum or [id number] 13:54:00 Test Item Value Reference Range Interpretation Comments B-Type Natriuretic Peptide (test 427.5 pg/mL 0.0-100.0 H code = 28767-7) [facility] Description: Natriuretic peptide B [Mass/volume] in Serum or [id number] 13:54:00 Test Item Value Reference Range Interpretation Comments B-Type Natriuretic Peptide (test 427.5 pg/mL 0.0-100.0 H code = 35650-7) [facility] Description: Natriuretic peptide B [Mass/volume] in Serum or [id number] 13:54:00 Test Item Value Reference Range Interpretation Comments B-Type Natriuretic Peptide (test 427.5 pg/mL 0.0-100.0 H code = 74874-4) [facility] Description: Natriuretic peptide B [Mass/volume] in Serum or [id number] 13:54:00 Test Item Value Reference Range Interpretation Comments B-Type Natriuretic Peptide (test 427.5 pg/mL 0.0-100.0 H code = 34543-4) [facility] Description: Natriuretic peptide B [Mass/volume] in Serum or [id number] 13:54:00 Test Item Value Reference Range Interpretation Comments B-Type Natriuretic Peptide (test 427.5 pg/mL 0.0-100.0 H code = 37846-5) [facility] Description: Phosphate [Mass/volume] in Serum or Plasma 2020-12-04 02:42:00 Test Item Value Reference Range Interpretation Comments Phosphorus (test code = 2777-1) 4.4 mg/dL 2.8-4.1 H [facility] Description: Phosphate [Mass/volume] in Serum or Plasma 2020-12-04 02:42:00 Test Item Value Reference Range Interpretation Comments Phosphorus (test code = 2777-1) 4.4 mg/dL 2.8-4.1 H [facility] Description: Phosphate [Mass/volume] in Serum or Plasma 2020-12-04 02:42:00 Test Item Value Reference Range Interpretation Comments Phosphorus (test code = 2777-1) 4.4 mg/dL 2.8-4.1 H [facility] Description: Phosphate [Mass/volume] in Serum or Plasma 2020-12-04 02:42:00 Test Item Value Reference Range Interpretation Comments Phosphorus (test code = 2777-1) 4.4 mg/dL 2.8-4.1 H [facility] Description: Phosphate [Mass/volume] in Serum or Plasma 2020-12-04 02:42:00 Test Item Value Reference Range Interpretation Comments Phosphorus (test code = 2777-1) 4.4 mg/dL 2.8-4.1 H [facility] Description: Phosphate [Mass/volume] in Serum or Plasma 2020-12-04 02:42:00 Test Item Value Reference Range Interpretation Comments Phosphorus (test code = 2777-1) 4.4 mg/dL 2.8-4.1 H [facility] Description: Phosphate [Mass/volume] in Serum or Plasma 2020-12-04 02:42:00 Test Item Value Reference Range Interpretation Comments Phosphorus (test code = 2777-1) 4.4 mg/dL 2.8-4.1 H [facility] Description: Phosphate [Mass/volume] in Serum or Plasma 2020-12-04 02:42:00 Test Item Value Reference Range Interpretation Comments Phosphorus (test code = 2777-1) 4.4 mg/dL 2.8-4.1 H [facility] Description: Comp. Metabolic Panel (14)2020-12-04 02:12:00 Test Item Value Reference Range Interpretation Comments Glucose (test code 315 mg/dL 65-99 H = 2345-7) BUN (test code = 52 mg/dL 6-24 H 3094-0) Creatinine (test 2.32 mg/dL 0.76-1.27 H code = 2160-0) eGFR If NonAfricn 32 >59 L Am (test code = mL/min/1.73 37348-7) eGFR If Africn Am 37 >59 L [facility] currently (test code = mL/min/1.73 [place] 15472-2) compliance with the current recommendations of the National Kidney Foundation. [facility] [place] will update re porting as new guidelin es are published from the NKF-ASN Task force.
<br/ >Perfor med by:
[facility] ([place])

BUN/Creatinine 22 9-20 H Ratio (test code = 3097-3) Sodium (test code = 142 mmol/L 715-503 8063-2) Potassium (test 4.3 mmol/L 3.5-5.2 code = 2823-3) Chloride (test code 100 mmol/L 96-106 = 2075-0) Carbon Dioxide, 28 mmol/L 20-29 Total (test code = 2027-) Calcium (test code 9.2 mg/dL 8.7-10.2 = 52930-9) Protein, Total 6.5 g/dL 6.0-8.5 (test code = 2885-2) Albumin (test code 3.5 g/dL 4.0-5.0 L = 1751-7) Globulin, Total 3.0 g/dL 1.5-4.5 (test code = 55250-1) A/G Ratio (test 1.2 1.2-2.2 code = 1759-0) Bilirubin, Total 0.4 mg/dL 0.0-1.2 (test code = 1975-2) Alkaline 107 IU/L 48-121 Phosphatase (test Effectiv e November code = 6768-6) 2020 Mayelin line Phosphatase referenc e interval will b e changing to: Age Ma le Female 0 - 5 days 47 - 127 47 - 127 6 - 10 days 29 - 242 29 - 242 1 1 - 20 days 109 - 357 109 - 357 2 1 - 30 days 94 - 494 94 - 494 1 - 2 months 149 - 539 149 - 539 3 - 6 months 131 - 452 131 - 452 7 - 11 months 117 - 401 117 - 401 12 month s - 6 years 158 - 369 158 - 369 7 - 12 years 150 - 409 150 - 409 13 years 156 - 435 78 - 227 14 years 114 - 375 64 - 161 15 years 88 - 279 56 - 134 16 years 74 - 207 51 - 121 17 years 63 - 161 47 - 113 1 8 - 20 years 51 - 125 42 - 106 >20 years 44 - 121 44 - 121

Pe rformed by:
[facility] ([place])

AST (SGOT) (test 20 IU/L 0-40 code = 1920-8) ALT (SGPT) (test 22 IU/L 0-44 code = 1742-6) [facility] Description: Comp. Metabolic Panel (14)2020-12-04 02:12:00 Test Item Value Reference Range Interpretation Comments Glucose (test code 315 mg/dL 65-99 H = 2345-7) BUN (test code = 52 mg/dL 6-24 H 3094-0) Creatinine (test 2.32 mg/dL 0.76-1.27 H code = 2160-0) eGFR If NonAfricn 32 >59 L Am (test code = mL/min/1.73 29108-3) eGFR If Africn Am 37 >59 L [facility] currently (test code = mL/min/1.73 [place] [address]-9) compliance with the current recommendations of the National Kidney Foundation. [facility] [place] will update re porting as new guidelin es are published from the NKF-ASN Task force.
<br/ >Perfor med by:
[facility] ([place])

BUN/Creatinine 22 9-20 H Ratio (test code = 3097-3) Sodium (test code = 142 mmol/L 336-988 9818-2) Potassium (test 4.3 mmol/L 3.5-5.2 code = 2823-3) Chloride (test code 100 mmol/L 96-106 = 2075-0) Carbon Dioxide, 28 mmol/L 20-29 Total (test code = 2027-) Calcium (test code 9.2 mg/dL 8.7-10.2 = 91459-6) Protein, Total 6.5 g/dL 6.0-8.5 (test code = 2885-2) Albumin (test code 3.5 g/dL 4.0-5.0 L = 1751-7) Globulin, Total 3.0 g/dL 1.5-4.5 (test code = 89216-3) A/G Ratio (test 1.2 1.2-2.2 code = 1759-0) Bilirubin, Total 0.4 mg/dL 0.0-1.2 (test code = 1975-2) Alkaline 107 IU/L 48-121 Phosphatase (test Effectiv e November code = 6768-6) 2020 [place] line Phosphatase referenc e interval will b e changing to: Age Ma le Female 0 - 5 days 47 - 127 47 - 127 6 - 10 days 29 - 242 29 - 242 1 1 - 20 days 109 - 357 109 - 357 2 1 - 30 days 94 - 494 94 - 494 1 - 2 months 149 - 539 149 - 539 3 - 6 months 131 - 452 131 - 452 7 - 11 months 117 - 401 117 - 401 12 month s - 6 years 158 - 369 158 - 369 7 - 12 years 150 - 409 150 - 409 13 years 156 - 435 78 - 227 14 years 114 - 375 64 - 161 15 years 88 - 279 56 - 134 16 years 74 - 207 51 - 121 17 years 63 - 161 47 - 113 1 8 - 20 years 51 - 125 42 - 106 >20 years 44 - 121 44 - 121

Pe rformed by:
[facility] ([place])

AST (SGOT) (test 20 IU/L 0-40 code = 1920-8) ALT (SGPT) (test 22 IU/L 0-44 code = 1742-6) [facility] Description: Comp. Metabolic Panel (14)2020-12-04 02:12:00 Test Item Value Reference Range Interpretation Comments Glucose (test code 315 mg/dL 65-99 H = 2345-7) BUN (test code = 52 mg/dL 6-24 H 3094-0) Creatinine (test 2.32 mg/dL 0.76-1.27 H code = 2160-0) eGFR If NonAfricn 32 >59 L Am (test code = mL/min/1.73 61054-9) eGFR If Africn Am 37 >59 L [facility] currently (test code = mL/min/1.73 [place] [address]-5) compliance with the current recommendations of the National Kidney Foundation. [facility] [place] will update re porting as new guidelin es are published from the NKF-ASN Task force.
<br/ >Perfor med by:
[facility] ([place])

BUN/Creatinine 22 9-20 H Ratio (test code = 3097-3) Sodium (test code = 142 mmol/L 058-288 0026-2) Potassium (test 4.3 mmol/L 3.5-5.2 code = 2823-3) Chloride (test code 100 mmol/L 96-106 = 2075-0) Carbon Dioxide, 28 mmol/L 20-29 Total (test code = 2027-) Calcium (test code 9.2 mg/dL 8.7-10.2 = 77803-0) Protein, Total 6.5 g/dL 6.0-8.5 (test code = 2885-2) Albumin (test code 3.5 g/dL 4.0-5.0 L = 1751-7) Globulin, Total 3.0 g/dL 1.5-4.5 (test code = 62805-1) A/G Ratio (test 1.2 1.2-2.2 code = 1759-0) Bilirubin, Total 0.4 mg/dL 0.0-1.2 (test code = 1975-2) Alkaline 107 IU/L 48-121 Phosphatase (test Effectiv e November code = 6768-6) 2020 [place] line Phosphatase referenc e interval will b e changing to: Age Ma le Female 0 - 5 days 47 - 127 47 - 127 6 - 10 days 29 - 242 29 - 242 1 1 - 20 days 109 - 357 109 - 357 2 1 - 30 days 94 - 494 94 - 494 1 - 2 months 149 - 539 149 - 539 3 - 6 months 131 - 452 131 - 452 7 - 11 months 117 - 401 117 - 401 12 month s - 6 years 158 - 369 158 - 369 7 - 12 years 150 - 409 150 - 409 13 years 156 - 435 78 - 227 14 years 114 - 375 64 - 161 15 years 88 - 279 56 - 134 16 years 74 - 207 51 - 121 17 years 63 - 161 47 - 113 1 8 - 20 years 51 - 125 42 - 106 >20 years 44 - 121 44 - 121

Pe rformed by:
[facility] ([place])

AST (SGOT) (test 20 IU/L 0-40 code = 1920-8) ALT (SGPT) (test 22 IU/L 0-44 code = 1742-6) [facility] Description: Comp. Metabolic Panel (14)2020-12-04 02:12:00 Test Item Value Reference Range Interpretation Comments Glucose (test code 315 mg/dL 65-99 H = 2345-7) BUN (test code = 52 mg/dL 6-24 H 3094-0) Creatinine (test 2.32 mg/dL 0.76-1.27 H code = 2160-0) eGFR If NonAfricn 32 >59 L Am (test code = mL/min/1.73 27612-3) eGFR If Africn Am 37 >59 L [facility] currently (test code = mL/min/1.73 [place] [address]-7) compliance with the current recommendations of the National Kidney Foundation. [facility] [place] will update re porting as new guidelin es are published from the NKF-ASN Task force.
<br/ >Perfor med by:
[facility] ([place])

BUN/Creatinine 22 9-20 H Ratio (test code = 3097-3) Sodium (test code = 142 mmol/L 861-365 9750-2) Potassium (test 4.3 mmol/L 3.5-5.2 code = 2823-3) Chloride (test code 100 mmol/L 96-106 = 2075-0) Carbon Dioxide, 28 mmol/L 20-29 Total (test code = 2027-) Calcium (test code 9.2 mg/dL 8.7-10.2 = 75793-3) Protein, Total 6.5 g/dL 6.0-8.5 (test code = 2885-2) Albumin (test code 3.5 g/dL 4.0-5.0 L = 1751-7) Globulin, Total 3.0 g/dL 1.5-4.5 (test code = 20533-7) A/G Ratio (test 1.2 1.2-2.2 code = 1759-0) Bilirubin, Total 0.4 mg/dL 0.0-1.2 (test code = 1975-2) Alkaline 107 IU/L 48-121 Phosphatase (test Effectiv e November code = 6768-6) 2020 [place] line Phosphatase referenc e interval will b e changing to: Age Ma le Female 0 - 5 days 47 - 127 47 - 127 6 - 10 days 29 - 242 29 - 242 1 1 - 20 days 109 - 357 109 - 357 2 1 - 30 days 94 - 494 94 - 494 1 - 2 months 149 - 539 149 - 539 3 - 6 months 131 - 452 131 - 452 7 - 11 months 117 - 401 117 - 401 12 month s - 6 years 158 - 369 158 - 369 7 - 12 years 150 - 409 150 - 409 13 years 156 - 435 78 - 227 14 years 114 - 375 64 - 161 15 years 88 - 279 56 - 134 16 years 74 - 207 51 - 121 17 years 63 - 161 47 - 113 1 8 - 20 years 51 - 125 42 - 106 >20 years 44 - 121 44 - 121

Pe rformed by:
[facility] ([place])

AST (SGOT) (test 20 IU/L 0-40 code = 1920-8) ALT (SGPT) (test 22 IU/L 0-44 code = 1742-6) [facility] Description: Comp. Metabolic Panel (14)2020-12-04 02:12:00 Test Item Value Reference Range Interpretation Comments Glucose (test code 315 mg/dL 65-99 H = 2345-7) BUN (test code = 52 mg/dL 6-24 H 3094-0) Creatinine (test 2.32 mg/dL 0.76-1.27 H code = 2160-0) eGFR If NonAfricn 32 >59 L Am (test code = mL/min/1.73 42548-7) eGFR If Africn Am 37 >59 L [facility] currently (test code = mL/min/1.73 [place] [address]-7) compliance with the current recommendations of the National Kidney Foundation. [facility] [place] will update re porting as new guidelin es are published from the NKF-ASN Task force.
<br/ >Perfor med by:
[facility] ([facility])

BUN/Creatinine 22 9-20 H Ratio (test code = 3097-3) Sodium (test code = 142 mmol/L 854-954 6690-2) Potassium (test 4.3 mmol/L 3.5-5.2 code = 2823-3) Chloride (test code 100 mmol/L 96-106 = 2075-0) Carbon Dioxide, 28 mmol/L 20-29 Total (test code = 2027-) Calcium (test code 9.2 mg/dL 8.7-10.2 = 72120-9) Protein, Total 6.5 g/dL 6.0-8.5 (test code = 2885-2) Albumin (test code 3.5 g/dL 4.0-5.0 L = 1751-7) Globulin, Total 3.0 g/dL 1.5-4.5 (test code = 91020-8) A/G Ratio (test 1.2 1.2-2.2 code = 1759-0) Bilirubin, Total 0.4 mg/dL 0.0-1.2 (test code = 1975-2) Alkaline 107 IU/L 48-121 Phosphatase (test Effectiv e November code = 6768-6) 2020 [place] line Phosphatase referenc e interval will b e changing to: Age Ma le Female 0 - 5 days 47 - 127 47 - 127 6 - 10 days 29 - 242 29 - 242 1 1 - 20 days 109 - 357 109 - 357 2 1 - 30 days 94 - 494 94 - 494 1 - 2 months 149 - 539 149 - 539 3 - 6 months 131 - 452 131 - 452 7 - 11 months 117 - 401 117 - 401 12 month s - 6 years 158 - 369 158 - 369 7 - 12 years 150 - 409 150 - 409 13 years 156 - 435 78 - 227 14 years 114 - 375 64 - 161 15 years 88 - 279 56 - 134 16 years 74 - 207 51 - 121 17 years 63 - 161 47 - 113 1 8 - 20 years 51 - 125 42 - 106 >20 years 44 - 121 44 - 121

Pe rformed by:
[facility] ([place])

AST (SGOT) (test 20 IU/L 0-40 code = 1920-8) ALT (SGPT) (test 22 IU/L 0-44 code = 1742-6) [facility] Description: Comp. Metabolic Panel (14)2020-12-04 02:12:00 Test Item Value Reference Range Interpretation Comments Glucose (test code 315 mg/dL 65-99 H = 2345-7) BUN (test code = 52 mg/dL 6-24 H 3094-0) Creatinine (test 2.32 mg/dL 0.76-1.27 H code = 2160-0) eGFR If NonAfricn 32 >59 L Am (test code = mL/min/1.73 64297-9) eGFR If Africn Am 37 >59 L [facility] currently (test code = mL/min/1.73 [place] [address]-1) compliance with the current recommendations of the National Kidney Foundation. [facility] [place] will update re porting as new guidelin es are published from the NKF-ASN Task force.
<br/ >Perfor med by:
[facility] ([facility])

BUN/Creatinine 22 9-20 H Ratio (test code = 3097-3) Sodium (test code = 142 mmol/L 769-598 9967-2) Potassium (test 4.3 mmol/L 3.5-5.2 code = 2823-3) Chloride (test code 100 mmol/L 96-106 = 2075-0) Carbon Dioxide, 28 mmol/L 20-29 Total (test code = 2027-) Calcium (test code 9.2 mg/dL 8.7-10.2 = 57192-9) Protein, Total 6.5 g/dL 6.0-8.5 (test code = 2885-2) Albumin (test code 3.5 g/dL 4.0-5.0 L = 1751-7) Globulin, Total 3.0 g/dL 1.5-4.5 (test code = 63421-3) A/G Ratio (test 1.2 1.2-2.2 code = 1759-0) Bilirubin, Total 0.4 mg/dL 0.0-1.2 (test code = 1975-2) Alkaline 107 IU/L 48-121 Phosphatase (test Effectiv e November code = 6768-6) 2020 [place] line Phosphatase referenc e interval will b e changing to: Age Ma le Female 0 - 5 days 47 - 127 47 - 127 6 - 10 days 29 - 242 29 - 242 1 1 - 20 days 109 - 357 109 - 357 2 1 - 30 days 94 - 494 94 - 494 1 - 2 months 149 - 539 149 - 539 3 - 6 months 131 - 452 131 - 452 7 - 11 months 117 - 401 117 - 401 12 month s - 6 years 158 - 369 158 - 369 7 - 12 years 150 - 409 150 - 409 13 years 156 - 435 78 - 227 14 years 114 - 375 64 - 161 15 years 88 - 279 56 - 134 16 years 74 - 207 51 - 121 17 years 63 - 161 47 - 113 1 8 - 20 years 51 - 125 42 - 106 >20 years 44 - 121 44 - 121

Pe rformed by:
[facility] ([place])

AST (SGOT) (test 20 IU/L 0-40 code = 1920-8) ALT (SGPT) (test 22 IU/L 0-44 code = 1742-6) [facility]: Comp. Metabolic Panel (14)2020-12-04 02:12:00 Test Item Value Reference Range Interpretation Comments Glucose (test code 315 mg/dL 65-99 H = 2345-7) BUN (test code = 52 mg/dL 6-24 H 3094-0) Creatinine (test 2.32 mg/dL 0.76-1.27 H code = 2160-0) eGFR If NonAfricn 32 >59 L Am (test code = mL/min/1.73 02056-0) eGFR If Africn Am 37 >59 L [facility] currently (test code = mL/min/1.73 [place] [address]-2) compliance with the current recommendations of the National Kidney Foundation. [facility] [place] will update re porting as new guidelin es are published from the NKF-ASN Task force.
<br/ >Perfor med by:
[facility] ([facility])

BUN/Creatinine 22 9-20 H Ratio (test code = 3097-3) Sodium (test code = 142 mmol/L 516-716 5283-2) Potassium (test 4.3 mmol/L 3.5-5.2 code = 2823-3) Chloride (test code 100 mmol/L 96-106 = 2075-0) Carbon Dioxide, 28 mmol/L 20-29 Total (test code = 2027-) Calcium (test code 9.2 mg/dL 8.7-10.2 = 74616-2) Protein, Total 6.5 g/dL 6.0-8.5 (test code = 2885-2) Albumin (test code 3.5 g/dL 4.0-5.0 L = 1751-7) Globulin, Total 3.0 g/dL 1.5-4.5 (test code = 40878-3) A/G Ratio (test 1.2 1.2-2.2 code = 1759-0) Bilirubin, Total 0.4 mg/dL 0.0-1.2 (test code = 1975-2) Alkaline 107 IU/L 48-121 Phosphatase (test Effectiv e November code = 6768-6) 2020 [place] line Phosphatase referenc e interval will b e changing to: Age Ma le Female 0 - 5 days 47 - 127 47 - 127 6 - 10 days 29 - 242 29 - 242 1 1 - 20 days 109 - 357 109 - 357 2 1 - 30 days 94 - 494 94 - 494 1 - 2 months 149 - 539 149 - 539 3 - 6 months 131 - 452 131 - 452 7 - 11 months 117 - 401 117 - 401 12 month s - 6 years 158 - 369 158 - 369 7 - 12 years 150 - 409 150 - 409 13 years 156 - 435 78 - 227 14 years 114 - 375 64 - 161 15 years 88 - 279 56 - 134 16 years 74 - 207 51 - 121 17 years 63 - 161 47 - 113 1 8 - 20 years 51 - 125 42 - 106 >20 years 44 - 121 44 - 121

Pe rformed by:
[facility] ([place])

AST (SGOT) (test 20 IU/L 0-40 code = 1920-8) ALT (SGPT) (test 22 IU/L 0-44 code = 1742-6) [facility] Description: Comp. Metabolic Panel (14)2020-12-04 02:12:00 Test Item Value Reference Range Interpretation Comments Glucose (test code 315 mg/dL 65-99 H = 2345-7) BUN (test code = 52 mg/dL 6-24 H 3094-0) Creatinine (test 2.32 mg/dL 0.76-1.27 H code = 2160-0) eGFR If NonAfricn 32 >59 L Am (test code = mL/min/1.73 23133-2) eGFR If Africn Am 37 >59 L [facility] currently (test code = mL/min/1.73 [place] [address]-6) compliance with the current recommendations of the National Kidney Foundation. [facility] [place] will update re porting as new guidelin es are published from the NKF-ASN Task force.
<br/ >Perfor med by:
[facility] ([facility])

BUN/Creatinine 22 9-20 H Ratio (test code = 3097-3) Sodium (test code = 142 mmol/L 876-502 8828-2) Potassium (test 4.3 mmol/L 3.5-5.2 code = 2823-3) Chloride (test code 100 mmol/L 96-106 = 2075-0) Carbon Dioxide, 28 mmol/L 20-29 Total (test code = 2027-) Calcium (test code 9.2 mg/dL 8.7-10.2 = 17533-7) Protein, Total 6.5 g/dL 6.0-8.5 (test code = 2885-2) Albumin (test code 3.5 g/dL 4.0-5.0 L = 1751-7) Globulin, Total 3.0 g/dL 1.5-4.5 (test code = 32719-1) A/G Ratio (test 1.2 1.2-2.2 code = 1759-0) Bilirubin, Total 0.4 mg/dL 0.0-1.2 (test code = 1975-2) Alkaline 107 IU/L 48-121 Phosphatase (test Effectiv e November code = 6768-6) 2020 [place] line Phosphatase referenc e interval will b e changing to: Age Ma le Female 0 - 5 days 47 - 127 47 - 127 6 - 10 days 29 - 242 29 - 242 1 1 - 20 days 109 - 357 109 - 357 2 1 - 30 days 94 - 494 94 - 494 1 - 2 months 149 - 539 149 - 539 3 - 6 months 131 - 452 131 - 452 7 - 11 months 117 - 401 117 - 401 12 month s - 6 years 158 - 369 158 - 369 7 - 12 years 150 - 409 150 - 409 13 years 156 - 435 78 - 227 14 years 114 - 375 64 - 161 15 years 88 - 279 56 - 134 16 years 74 - 207 51 - 121 17 years 63 - 161 47 - 113 1 8 - 20 years 51 - 125 42 - 106 >20 years 44 - 121 44 - 121

Pe rformed by:
[facility] ([place])

AST (SGOT) (test 20 IU/L 0-40 code = 1920-8) ALT (SGPT) (test 22 IU/L 0-44 code = 1742-6) [facility] Description: Natriuretic peptide B [Mass/volume] in Serum or [id number] 14:32:00 Test Item Value Reference Range Interpretation Comments B-Type Natriuretic Peptide (test 682.3 pg/mL 0.0-100.0 H code = 85724-0) [facility] Description: Natriuretic peptide B [Mass/volume] in Serum or [id number] 14:32:00 Test Item Value Reference Range Interpretation Comments B-Type Natriuretic Peptide (test 682.3 pg/mL 0.0-100.0 H code = 05053-2) [facility] Description: Natriuretic peptide B [Mass/volume] in Serum or [id number] 14:32:00 Test Item Value Reference Range Interpretation Comments B-Type Natriuretic Peptide (test 682.3 pg/mL 0.0-100.0 H code = 32069-6) [facility] Health Description: Natriuretic peptide B [Mass/volume] in Serum or [id number] 14:32:00 Test Item Value Reference Range Interpretation Comments B-Type Natriuretic Peptide (test 682.3 pg/mL 0.0-100.0 H code = 88982-2) [facility] Description: Natriuretic peptide B [Mass/volume] in Serum or [id number] 14:32:00 Test Item Value Reference Range Interpretation Comments B-Type Natriuretic Peptide (test 682.3 pg/mL 0.0-100.0 H code = 89012-5) [facility] Description: Natriuretic peptide B [Mass/volume] in Serum or [id number] 14:32:00 Test Item Value Reference Range Interpretation Comments B-Type Natriuretic Peptide (test 682.3 pg/mL 0.0-100.0 H code = 93656-9) [facility] Description: Natriuretic peptide B [Mass/volume] in Serum or [id number] 14:32:00 Test Item Value Reference Range Interpretation Comments B-Type Natriuretic Peptide (test 682.3 pg/mL 0.0-100.0 H code = 72626-6) [facility] Description: Natriuretic peptide B [Mass/volume] in Serum or [id number] 14:32:00 Test Item Value Reference Range Interpretation Comments B-Type Natriuretic Peptide (test 682.3 pg/mL 0.0-100.0 H code = 96767-1) [facility] Description: Natriuretic peptide B [Mass/volume] in Serum or [id number] 14:32:00 Test Item Value Reference Range Interpretation Comments B-Type Natriuretic Peptide (test 682.3 pg/mL 0.0-100.0 H code = 37768-9) [facility] Description: Natriuretic peptide B [Mass/volume] in Serum or [id number] 14:32:00 Test Item Value Reference Range Interpretation Comments B-Type Natriuretic Peptide (test 682.3 pg/mL 0.0-100.0 H code = 47588-7) [facility] Description: Parathyrin.intact [Mass/volume] in Serum or [id number] 08:48:00 Test Item Value Reference Range Interpretation Comments PTH, Intact (test code = 2731-8) 147 pg/mL 15-65 H [facility] Description: Parathyrin.intact [Mass/volume] in Serum or Kxrdru1263-77-12 08:48:00 Test Item Value Reference Range Interpretation Comments PTH, Intact (test code = 2731-8) 147 pg/mL 15-65 H [facility] Description: Parathyrin.intact [Mass/volume] in Serum or Rpnvmc5654-28-18 08:48:00 Test Item Value Reference Range Interpretation Comments PTH, Intact (test code = 2731-8) 147 pg/mL 15-65 H [facility] Description: Parathyrin.intact [Mass/volume] in Serum or [id number] 08:48:00 Test Item Value Reference Range Interpretation Comments PTH, Intact (test code = 2731-8) 147 pg/mL 15-65 H [facility] Description: Parathyrin.intact [Mass/volume] in Serum or Egksnt7737-04-28 08:48:00 Test Item Value Reference Range Interpretation Comments PTH, Intact (test code = 2731-8) 147 pg/mL 15-65 H [facility] Description: Parathyrin.intact [Mass/volume] in Serum or Ccvdjm7763-93-27 08:48:00 Test Item Value Reference Range Interpretation Comments PTH, Intact (test code = 2731-8) 147 pg/mL 15-65 H [facility] Description: Parathyrin.intact [Mass/volume] in Serum or [id number] 08:48:00 Test Item Value Reference Range Interpretation Comments PTH, Intact (test code = 2731-8) 147 pg/mL 15-65 H [facility] Description: Parathyrin.intact [Mass/volume] in Serum or [id number] 08:48:00 Test Item Value Reference Range Interpretation Comments PTH, Intact (test code = 2731-8) 147 pg/mL 15-65 H [facility] Description: Parathyrin.intact [Mass/volume] in Serum or [id number] 08:48:00 Test Item Value Reference Range Interpretation Comments PTH, Intact (test code = 2731-8) 147 pg/mL 15-65 H [facility] Description: Parathyrin.intact [Mass/volume] in Serum or Wkwshr5952-05-39 08:48:00 Test Item Value Reference Range Interpretation Comments PTH, Intact (test code = 2731-8) 147 pg/mL 15-65 H [facility] Description: Hemoglobin A1c/Hemoglobin.total in Blood 2020-10-30 05:01:00 Test Item Value Reference Range Interpretation Comments Hemoglobin A1c (test code 8.4 % 4.8-5.6 H = 4548-4) . Prediabetes: 5. 7 - 6.4 Diabetes : >6.4 Glycemic control for adults with diabetes: <7.0

P erformed by:
[facility] ()

[facility] Description: Hemoglobin A1c/Hemoglobin.total in Blood 2020-10-30 05:01:00 Test Item Value Reference Range Interpretation Comments Hemoglobin A1c (test code 8.4 % 4.8-5.6 H = 4548-4) . Prediabetes: 5. 7 - 6.4 Diabetes : >6.4 Glycemic control for adults with diabetes: <7.0

P erformed by:
[facility] ()

[facility] Description: Hemoglobin A1c/Hemoglobin.total in Blood 2020-10-30 05:01:00 Test Item Value Reference Range Interpretation Comments Hemoglobin A1c (test code 8.4 % 4.8-5.6 H = 4548-4) . Prediabetes: 5. 7 - 6.4 Diabetes : >6.4 Glycemic control for adults with diabetes: <7.0

P erformed by:
[facility] ()

[facility] Description: Hemoglobin A1c/Hemoglobin.total in Blood 2020-10-30 05:01:00 Test Item Value Reference Range Interpretation Comments Hemoglobin A1c (test code 8.4 % 4.8-5.6 H = 4548-4) . Prediabetes: 5. 7 - 6.4 Diabetes : >6.4 Glycemic control for adults with diabetes: <7.0

P erformed by:
[facility] ()

[facility] Description: Hemoglobin A1c/Hemoglobin.total in Blood 2020-10-30 05:01:00 Test Item Value Reference Range Interpretation Comments Hemoglobin A1c (test code 8.4 % 4.8-5.6 H = 4548-4) . Prediabetes: 5. 7 - 6.4 Diabetes : >6.4 Glycemic control for adults with diabetes: <7.0

P erformed by:
[facility] ()

[facility] Description: Hemoglobin A1c/Hemoglobin.total in Blood 2020-10-30 05:01:00 Test Item Value Reference Range Interpretation Comments Hemoglobin A1c (test code 8.4 % 4.8-5.6 H = 4548-4) . Prediabetes: 5. 7 - 6.4 Diabetes : >6.4 Glycemic control for adults with diabetes: <7.0

P erformed by:
[facility] ()

[facility] Description: Hemoglobin A1c/Hemoglobin.total in Blood 2020-10-30 05:01:00 Test Item Value Reference Range Interpretation Comments Hemoglobin A1c (test code 8.4 % 4.8-5.6 H = 4548-4) . Prediabetes: 5. 7 - 6.4 Diabetes : >6.4 Glycemic control for adults with diabetes: <7.0

P erformed by:
[facility] ()

[facility] Description: Hemoglobin A1c/Hemoglobin.total in Blood 2020-10-30 05:01:00 Test Item Value Reference Range Interpretation Comments Hemoglobin A1c (test code 8.4 % 4.8-5.6 H = 4548-4) . Prediabetes: 5. 7 - 6.4 Diabetes : >6.4 Glycemic control for adults with diabetes: <7.0

P erformed by:
[facility] ()

[facility] Description: Hemoglobin A1c/Hemoglobin.total in Blood 2020-10-30 05:01:00 Test Item Value Reference Range Interpretation Comments Hemoglobin A1c (test code 8.4 % 4.8-5.6 H = 4548-4) . Prediabetes: 5. 7 - 6.4 Diabetes : >6.4 Glycemic control for adults with diabetes: <7.0

P erformed by:
[facility] ()

[facility] Description: Hemoglobin A1c/Hemoglobin.total in Blood 2020-10-30 05:01:00 Test Item Value Reference Range Interpretation Comments Hemoglobin A1c (test code 8.4 % 4.8-5.6 H = 4548-4) . Prediabetes: 5. 7 - 6.4 Diabetes : >6.4 Glycemic control for adults with diabetes: <7.0

P erformed by:
[facility] ()

[facility] Description: Microscopic Zwukakxllja1428-81-36 04:44:00 Test Item Value Reference Range Interpretation Comments WBC (test code = 5821-4) None seen 0-5 RBC (test code = 47655-9) None seen 0-2 Epithelial Cells (non renal) (test None seen 0-10 code = 5787-7) Epithelial Cells (renal) (test code = 10084-6) Casts (test code = 12939-1) None seen None seen Cast Type (test code = 77111-6) Crystals (test code = 5783-6) Crystal Type (test code = 5782-8) Mucus Threads (test code = 8247-9) Bacteria (test code = 5769-5) None seen None seen/Few Yeast (test code = 5822-2) Trichomonas (test code = 5813-1) Comment (test code = 68607-8) [facility]: Microscopic Ukdfnzwbvpf1573-42-01 04:44:00 Test Item Value Reference Range Interpretation Comments WBC (test code = 5821-4) None seen 0-5 RBC (test code = 13562-0) None seen 0-2 Epithelial Cells (non renal) (test None seen 0-10 code = 5787-7) Epithelial Cells (renal) (test code = 67817-0) Casts (test code = 99564-2) None seen None seen Cast Type (test code = 30914-6) Crystals (test code = 5783-6) Crystal Type (test code = 5782-8) Mucus Threads (test code = 8247-9) Bacteria (test code = 5769-5) None seen None seen/Few Yeast (test code = 5822-2) Trichomonas (test code = 5813-1) Comment (test code = 02632-4) [facility]: Microscopic Lkkuorozugz9594-47-61 04:44:00 Test Item Value Reference Range Interpretation Comments WBC (test code = 5821-4) None seen 0-5 RBC (test code = 41236-2) None seen 0-2 Epithelial Cells (non renal) (test None seen 0-10 code = 5787-7) Epithelial Cells (renal) (test code = 50410-6) Casts (test code = 93334-9) None seen None seen Cast Type (test code = 70321-6) Crystals (test code = 5783-6) Crystal Type (test code = 5782-8) Mucus Threads (test code = 8247-9) Bacteria (test code = 5769-5) None seen None seen/Few Yeast (test code = 5822-2) Trichomonas (test code = 5813-1) Comment (test code = 34143-4) [facility] Description: Microscopic Rzucldryywm5732-49-25 04:44:00 Test Item Value Reference Range Interpretation Comments WBC (test code = 5821-4) None seen 0-5 RBC (test code = 30428-7) None seen 0-2 Epithelial Cells (non renal) (test None seen 0-10 code = 5787-7) Epithelial Cells (renal) (test code = 76138-2) Casts (test code = 39478-0) None seen None seen Cast Type (test code = 54881-5) Crystals (test code = 5783-6) Crystal Type (test code = 5782-8) Mucus Threads (test code = 8247-9) Bacteria (test code = 5769-5) None seen None seen/Few Yeast (test code = 5822-2) Trichomonas (test code = 5813-1) Comment (test code = 12132-8) [facility] Description: Microscopic Drqyrhizcvd9027-59-57 04:44:00 Test Item Value Reference Range Interpretation Comments WBC (test code = 5821-4) None seen 0-5 RBC (test code = 75356-7) None seen 0-2 Epithelial Cells (non renal) (test None seen 0-10 code = 5787-7) Epithelial Cells (renal) (test code = 05014-2) Casts (test code = 87802-4) None seen None seen Cast Type (test code = 67078-0) Crystals (test code = 5783-6) Crystal Type (test code = 5782-8) Mucus Threads (test code = 8247-9) Bacteria (test code = 5769-5) None seen None seen/Few Yeast (test code = 5822-2) Trichomonas (test code = 5813-1) Comment (test code = 07393-7) [facility]: Microscopic Ifpjvicgyih8227-81-31 04:44:00 Test Item Value Reference Range Interpretation Comments WBC (test code = 5821-4) None seen 0-5 RBC (test code = 38926-4) None seen 0-2 Epithelial Cells (non renal) (test None seen 0-10 code = 5787-7) Epithelial Cells (renal) (test code = 58303-2) Casts (test code = 59032-0) None seen None seen Cast Type (test code = 11465-3) Crystals (test code = 5783-6) Crystal Type (test code = 5782-8) Mucus Threads (test code = 8247-9) Bacteria (test code = 5769-5) None seen None seen/Few Yeast (test code = 5822-2) Trichomonas (test code = 5813-1) Comment (test code = 84151-4) [facility] Description: Microscopic Adljiianfft5629-60-79 04:44:00 Test Item Value Reference Range Interpretation Comments WBC (test code = 5821-4) None seen 0-5 RBC (test code = 33375-6) None seen 0-2 Epithelial Cells (non renal) (test None seen 0-10 code = 5787-7) Epithelial Cells (renal) (test code = 10312-9) Casts (test code = 02423-9) None seen None seen Cast Type (test code = 08278-3) Crystals (test code = 5783-6) Crystal Type (test code = 5782-8) Mucus Threads (test code = 8247-9) Bacteria (test code = 5769-5) None seen None seen/Few Yeast (test code = 5822-2) Trichomonas (test code = 5813-1) Comment (test code = 17237-6) [facility] Description: Microscopic Xcbkwhfzrdn8671-06-26 04:44:00 Test Item Value Reference Range Interpretation Comments WBC (test code = 5821-4) None seen 0-5 RBC (test code = 84051-6) None seen 0-2 Epithelial Cells (non renal) (test None seen 0-10 code = 5787-7) Epithelial Cells (renal) (test code = 49376-7) Casts (test code = 25457-1) None seen None seen Cast Type (test code = 23662-1) Crystals (test code = 5783-6) Crystal Type (test code = 5782-8) Mucus Threads (test code = 8247-9) Bacteria (test code = 5769-5) None seen None seen/Few Yeast (test code = 5822-2) Trichomonas (test code = 5813-1) Comment (test code = 45340-4) [facility] Description: Microscopic Tcbldktcrgb6074-20-14 04:44:00 Test Item Value Reference Range Interpretation Comments WBC (test code = 5821-4) None seen 0-5 RBC (test code = 18553-0) None seen 0-2 Epithelial Cells (non renal) (test None seen 0-10 code = 5787-7) Epithelial Cells (renal) (test code = 92030-3) Casts (test code = 94170-0) None seen None seen Cast Type (test code = 63258-8) Crystals (test code = 5783-6) Crystal Type (test code = 5782-8) Mucus Threads (test code = 8247-9) Bacteria (test code = 5769-5) None seen None seen/Few Yeast (test code = 5822-2) Trichomonas (test code = 5813-1) Comment (test code = 74914-0) [facility] Description: Microscopic Jgkjxmkgvnr5390-99-38 04:44:00 Test Item Value Reference Range Interpretation Comments WBC (test code = 5821-4) None seen 0-5 RBC (test code = 50990-5) None seen 0-2 Epithelial Cells (non renal) (test None seen 0-10 code = 5787-7) Epithelial Cells (renal) (test code = 50815-1) Casts (test code = 05476-9) None seen None seen Cast Type (test code = 24667-8) Crystals (test code = 5783-6) Crystal Type (test code = 5782-8) Mucus Threads (test code = 8247-9) Bacteria (test code = 5769-5) None seen None seen/Few Yeast (test code = 5822-2) Trichomonas (test code = 5813-1) Comment (test code = 91368-6) [facility] Description: Urinalysis, Uxfkhgbx5522-70-83 04:43:00 Test Item Value Reference Range Interpretation Comments Specific [place] (test 1.012 1.005-1.030 code = 2965-2) pH (test code = 5.5 5.0-7.5 5803-2) Urine-Color (test code Yellow Yellow = 5778-6) Appearance (test code Clear Clear = 5767-9) WBC Esterase (test Negative Negative code = 5799-2) Protein (test code = 4+ Negative/Trace A 07947-7) Glucose (test code = Trace Negative A 2349-9) Ketones (test code = Negative Negative 2514-8) Occult Blood (test Trace Negative A code = 5794-3) Bilirubin (test code = Negative Negative 5770-3) Urobilinogen,Semi-Qn 0.2 mg/dL 0.2-1.0 (test code = 28560-6) Nitrite, Urine (test Negative Negative code = 5802-4) Microscopic See below: Microscopic was Examination (test code indic ated and was = 16056-4) performed.

P erformed by:
[facility] ()

[facility] Description: Urinalysis, Hekloslj9412-53-48 04:43:00 Test Item Value Reference Range Interpretation Comments Specific [place] (test 1.012 1.005-1.030 code = 2965-2) pH (test code = 5.5 5.0-7.5 5803-2) Urine-Color (test code Yellow Yellow = 5778-6) Appearance (test code Clear Clear = 5767-9) WBC Esterase (test Negative Negative code = 5799-2) Protein (test code = 4+ Negative/Trace A 73566-5) Glucose (test code = Trace Negative A 2349-9) Ketones (test code = Negative Negative 2514-8) Occult Blood (test Trace Negative A code = 5794-3) Bilirubin (test code = Negative Negative 5770-3) Urobilinogen,Semi-Qn 0.2 mg/dL 0.2-1.0 (test code = 99417-1) Nitrite, Urine (test Negative Negative code = 5802-4) Microscopic See below: Microscopic was Examination (test code indic ated and was = 32488-5) performed.

P erformed by:
[facility] ()

[facility] Description: Urinalysis, Hayuxcmf3923-89-06 04:43:00 Test Item Value Reference Range Interpretation Comments Specific [place] (test 1.012 1.005-1.030 code = 2965-2) pH (test code = 5.5 5.0-7.5 5803-2) Urine-Color (test code Yellow Yellow = 5778-6) Appearance (test code Clear Clear = 5767-9) WBC Esterase (test Negative Negative code = 5799-2) Protein (test code = 4+ Negative/Trace A 09289-7) Glucose (test code = Trace Negative A 2349-9) Ketones (test code = Negative Negative 2514-8) Occult Blood (test Trace Negative A code = 5794-3) Bilirubin (test code = Negative Negative 5770-3) Urobilinogen,Semi-Qn 0.2 mg/dL 0.2-1.0 (test code = 64925-5) Nitrite, Urine (test Negative Negative code = 5802-4) Microscopic See below: Microscopic was Examination (test code indic ated and was = 41647-0) performed.

P erformed by:
[facility] ()

[facility] Description: Urinalysis, Hyiaqgfm6006-73-95 04:43:00 Test Item Value Reference Range Interpretation Comments Specific [place] (test 1.012 1.005-1.030 code = 2965-2) pH (test code = 5.5 5.0-7.5 5803-2) Urine-Color (test code Yellow Yellow = 5778-6) Appearance (test code Clear Clear = 5767-9) WBC Esterase (test Negative Negative code = 5799-2) Protein (test code = 4+ Negative/Trace A 59755-4) Glucose (test code = Trace Negative A 2349-9) Ketones (test code = Negative Negative 2514-8) Occult Blood (test Trace Negative A code = 5794-3) Bilirubin (test code = Negative Negative 5770-3) Urobilinogen,Semi-Qn 0.2 mg/dL 0.2-1.0 (test code = 58043-7) Nitrite, Urine (test Negative Negative code = 5802-4) Microscopic See below: Microscopic was Examination (test code indic ated and was = 54148-9) performed.

P erformed by:
[facility] ()

[facility] Description: Urinalysis, Doicciel5398-01-99 04:43:00 Test Item Value Reference Range Interpretation Comments Specific [place] (test 1.012 1.005-1.030 code = 2965-2) pH (test code = 5.5 5.0-7.5 5803-2) Urine-Color (test code Yellow Yellow = 5778-6) Appearance (test code Clear Clear = 5767-9) WBC Esterase (test Negative Negative code = 5799-2) Protein (test code = 4+ Negative/Trace A 15971-7) Glucose (test code = Trace Negative A 2349-9) Ketones (test code = Negative Negative 2514-8) Occult Blood (test Trace Negative A code = 5794-3) Bilirubin (test code = Negative Negative 5770-3) Urobilinogen,Semi-Qn 0.2 mg/dL 0.2-1.0 (test code = 79160-8) Nitrite, Urine (test Negative Negative code = 5802-4) Microscopic See below: Microscopic was Examination (test code indic ated and was = 24073-7) performed.

P erformed by:
[facility] ()

[facility] Description: Urinalysis, Ihwkrqes6840-44-64 04:43:00 Test Item Value Reference Range Interpretation Comments Specific [place] (test 1.012 1.005-1.030 code = 2965-2) pH (test code = 5.5 5.0-7.5 5803-2) Urine-Color (test code Yellow Yellow = 5778-6) Appearance (test code Clear Clear = 5767-9) WBC Esterase (test Negative Negative code = 5799-2) Protein (test code = 4+ Negative/Trace A 90292-6) Glucose (test code = Trace Negative A 2349-9) Ketones (test code = Negative Negative 2514-8) Occult Blood (test Trace Negative A code = 5794-3) Bilirubin (test code = Negative Negative 5770-3) Urobilinogen,Semi-Qn 0.2 mg/dL 0.2-1.0 (test code = 73897-7) Nitrite, Urine (test Negative Negative code = 5802-4) Microscopic See below: Microscopic was Examination (test code indic atecatrachito and was = 16639-6) performed.

P erformed by:
[facility] ()

[facility] Description: Urinalysis, Elmcpcna7446-59-98 04:43:00 Test Item Value Reference Range Interpretation Comments Specific [place] (test 1.012 1.005-1.030 code = 2965-2) pH (test code = 5.5 5.0-7.5 5803-2) Urine-Color (test code Yellow Yellow = 5778-6) Appearance (test code Clear Clear = 5767-9) WBC Esterase (test Negative Negative code = 5799-2) Protein (test code = 4+ Negative/Trace A 97084-5) Glucose (test code = Trace Negative A 2349-9) Ketones (test code = Negative Negative 2514-8) Occult Blood (test Trace Negative A code = 5794-3) Bilirubin (test code = Negative Negative 5770-3) Urobilinogen,Semi-Qn 0.2 mg/dL 0.2-1.0 (test code = 02364-8) Nitrite, Urine (test Negative Negative code = 5802-4) Microscopic See below: Microscopic was Examination (test code indic atecatrachito and was = 96535-9) performed.

P erformed by:
[facility] ()

[facility] Description: Urinalysis, Hksbzsrd2443-83-09 04:43:00 Test Item Value Reference Range Interpretation Comments Specific [place] (test 1.012 1.005-1.030 code = 2965-2) pH (test code = 5.5 5.0-7.5 5803-2) Urine-Color (test code Yellow Yellow = 5778-6) Appearance (test code Clear Clear = 5767-9) WBC Esterase (test Negative Negative code = 5799-2) Protein (test code = 4+ Negative/Trace A 19567-1) Glucose (test code = Trace Negative A 2349-9) Ketones (test code = Negative Negative 2514-8) Occult Blood (test Trace Negative A code = 5794-3) Bilirubin (test code = Negative Negative 5770-3) Urobilinogen,Semi-Qn 0.2 mg/dL 0.2-1.0 (test code = 04821-9) Nitrite, Urine (test Negative Negative code = 5802-4) Microscopic See below: Microscopic was Examination (test code indic ated and was = 63321-1) performed.

P erformed by:
[facility] ()

[facility] Description: Urinalysis, Kgyvgmgy5943-36-51 04:43:00 Test Item Value Reference Range Interpretation Comments Specific [place] (test 1.012 1.005-1.030 code = 2965-2) pH (test code = 5.5 5.0-7.5 5803-2) Urine-Color (test code Yellow Yellow = 5778-6) Appearance (test code Clear Clear = 5767-9) WBC Esterase (test Negative Negative code = 5799-2) Protein (test code = 4+ Negative/Trace A 07738-1) Glucose (test code = Trace Negative A 2349-9) Ketones (test code = Negative Negative 2514-8) Occult Blood (test Trace Negative A code = 5794-3) Bilirubin (test code = Negative Negative 5770-3) Urobilinogen,Semi-Qn 0.2 mg/dL 0.2-1.0 (test code = 27222-4) Nitrite, Urine (test Negative Negative code = 5802-4) Microscopic See below: Microscopic was Examination (test code indic ated and was = 85933-9) performed.

P erformed by:
[facility] ()

[facility] Description: Urinalysis, Itpbhftj0523-55-31 04:43:00 Test Item Value Reference Range Interpretation Comments Specific [place] (test 1.012 1.005-1.030 code = 2965-2) pH (test code = 5.5 5.0-7.5 5803-2) Urine-Color (test code Yellow Yellow = 5778-6) Appearance (test code Clear Clear = 5767-9) WBC Esterase (test Negative Negative code = 5799-2) Protein (test code = 4+ Negative/Trace A 96804-3) Glucose (test code = Trace Negative A 2349-9) Ketones (test code = Negative Negative 2514-8) Occult Blood (test Trace Negative A code = 5794-3) Bilirubin (test code = Negative Negative 5770-3) Urobilinogen,Semi-Qn 0.2 mg/dL 0.2-1.0 (test code = 25911-5) Nitrite, Urine (test Negative Negative code = 5802-4) Microscopic See below: Microscopic was Examination (test code indic ated and was = 11446-0) performed.

P erformed by:
[facility] ()

[facility] Description: Urinalysis, [id number] 04:43:00 [facility] Description: Urinalysis, Complete 2020-10-30 04:43:00[facility] Description: Urinalysis, Hfajnaqp3064-26-83 04:43:00[facility] Description: Urinalysis, Tnlvvwum6893-76-50 04:43:00Microscopic Examination [facility] Description: Urinalysis, Klhdskca0225-62-57 04:43:00 [facility] Description: Urinalysis, Complete 2020-10-30 04:43:00[facility] Description: Urinalysis, Scsryjjo8200-60-76 04:43:00[facility] Description: Urinalysis, Osbaqtyj0678-94-70 04:43:00Microscopic Examination [facility] Description: Urinalysis, Juvqapqb4915-82-80 04:43:00 Microscopic [facility] Description: Urinalysis, Complete 2020-10-30 04:43:00[facility] Description: 25- hydroxyvitamin D3 [Mass/volume] in Serum or Kkopkp5107-54-24 04:26:00 Test Item Value Reference Range Interpretation Comments Vitamin D, 12.0 ng/mL 30.0-100.0 L Vitamin D defic iency has 25-Hydroxy (test been define d by the code = 65967-1) [employer] and an Endocrine So ety practice guidel ine as alevel of serum 25-OH vitamin D less than 20 ng/mL (1,2).The Endocrine Society went on to further define vitamin Dinsufficiency as a level between 21 and 29 ng/mL (2).1. IOM (Ins titute of Medicine). 2010 . Dietary reference int akes for calcium and D. [facility]: The [employer] .2. Ela Oliveros, Stephane EMERSON, et al. Evaluatio n, treatment, and prevention of vitamin D deficiency: an Endocrine Society clinica l practice guideline. [place]. 2010; 96(7):191-.< br/>
P erformed by:
[facility] ([place])

Access [facility] Description: 25-hydroxyvitamin D3 [Mass/volume] in Serum or [id number] 04:26:00 Test Item Value Reference Range Interpretation Comments Vitamin D, 12.0 ng/mL 30.0-100.0 L Vitamin D defic iency has 25-Hydroxy (test been define d by the code = 19541-6) [employer] of Medicine and an Endocrine So [facility] guidel ine as alevel of serum 25-OH vitamin D less than 20 ng/mL (1,2).The Endocrine Society went on to further define vitamin Dinsufficiency as a level between 21 and 29 ng/mL (2).1. IOM (Ins [facility]). 2010 . Dietary reference int akes for calcium and D. [facility]: The [employer] .2. Ela Oliveros, Stephane EMERSON, et al. Evaluatio n, treatment, and prevention of vitamin D deficiency: an Endocrine Society clinica l practice guideline. EM. 2010; 96(7):191-.< br/>
P erformed by:
[facility] ([place])

Access CheviaPanListMinut Description: 25-hydroxyvitamin D3 [Mass/volume] in Serum or [id number] 04:26:00 Test Item Value Reference Range Interpretation Comments Vitamin D, 12.0 ng/mL 30.0-100.0 L Vitamin D defic iency has 25-Hydroxy (test been define d by the code = 97787-0) [employer] of Medicine and an Endocrine So ciety practice guidel ine as alevel of serum 25-OH vitamin D less than 20 ng/mL (1,2).The Endocrine Society went on to further define vitamin Dinsufficiency as a level between 21 and 29 ng/mL (2).1. IOM (Ins titute of Medicine). 2010 . Dietary reference int akes for calcium and D. [place]: The [employer] .2. Ela Oliveros, Stephane EMERSON, et al. Evaluatio n, treatment, and prevention of vitamin D deficiency: an Endocrine Society clinica l practice guideline. EM. 2010; 96(7):191-.< br/>
P erformed by:
[facility] ([place])

Access HealthPan Description: 25-hydroxyvitamin D3 [Mass/volume] in Serum or [id number] 04:26:00 Test Item Value Reference Range Interpretation Comments Vitamin D, 12.0 ng/mL 30.0-100.0 L Vitamin D defic iency has 25-Hydroxy (test been define d by the code = 78513-2) [employer] of Medicine and an Endocrine So [facility] guidel ine as alevel of serum 25-OH vitamin D less than 20 ng/mL (1,2).The Endocrine Society went on to further define vitamin Dinsufficiency as a level between 21 and 29 ng/mL (2).1. IOM (Ins titute of Medicine). 2010 . Dietary reference int akes for calcium and D. [place]: The [employer] .2. Ela Oliveros, Stephane EMERSON, et al. Evaluatio n, treatment, and prevention of vitamin D deficiency: an Endocrine Society clinica l practice guideline. EM. 2010; 96(7):191-.< br/>
P erformed by:
[facility] ([place])

Access HealthPan Description: 25-hydroxyvitamin D3 [Mass/volume] in Serum or [id number] 04:26:00 Test Item Value Reference Range Interpretation Comments Vitamin D, 12.0 ng/mL 30.0-100.0 L Vitamin D defic iency has 25-Hydroxy (test been define d by the code = 71641-1) Cotton of Medicine and an Endocrine So ciety practice guidel ine as alevel of serum 25-OH vitamin D less than 20 ng/mL (1,2).The Endocrine Society went on to further define vitamin Dinsufficiency as a level between 21 and 29 ng/mL (2).1. IOM (Ins titute of Medicine). 2010 . Dietary reference int akes for calcium and D. [employer]: The [employer] .2. Ela Oliveros, Chichi-Augie EMERSON, et al. Evaluatio n, treatment, and prevention of vitamin D deficiency: an Endocrine Society clinica l practice guideline. [place] EM. 2010; 96(9):1911-30.< br/>
P erformed by:
[facility] ([place])

[facility] Description: 25-hydroxyvitamin D3 [Mass/volume] in Serum or [id number] 04:26:00 Test Item Value Reference Range Interpretation Comments Vitamin D, 12.0 ng/mL 30.0-100.0 L Vitamin D defic iency has 25-Hydroxy (test been define d by the code = 41092-0) [employer] of Medicine and an Endocrine So [facility] guidel ine as alevel of serum 25-OH vitamin D less than 20 ng/mL (1,2).The Endocrine Society went on to further define vitamin Dinsufficiency as a level between 21 and 29 ng/mL (2).1. IOM (Ins titute of Medicine). 2010 . Dietary reference int akes for calcium and D. [employer]: The [employer] .2. Ela Oliveros, Chichi-Augie EMERSON, et al. Evaluatio n, treatment, and prevention of vitamin D deficiency: an Endocrine Society clinica l practice guideline. [place] EM. 2010; 96(7):1911-30.< br/>
P erformed by:
[facility] ([place])

Access HealthPan Description: 25-hydroxyvitamin D3 [Mass/volume] in Serum or [id number] 04:26:00 Test Item Value Reference Range Interpretation Comments Vitamin D, 12.0 ng/mL 30.0-100.0 L Vitamin D defic iency has 25-Hydroxy (test been define d by the code = 38729-1) [employer] of Medicine and an Endocrine So [facility] guidel ine as alevel of serum 25-OH vitamin D less than 20 ng/mL (1,2).The Endocrine Society went on to further define vitamin Dinsufficiency as a level between 21 and 29 ng/mL (2).1. IOM (Ins titute of Medicine). 2010 . Dietary reference int akes for calcium and D. [employer]: The [employer] .2. Ela Oliveros, Stephane EMERSON, et al. Evaluatio n, treatment, and prevention of vitamin D deficiency: an Endocrine Society clinica l practice guideline. EM. 2010; 96(7):1911-30.< br/>
P erformed by:
[facility] ([place])

Access HealthPan Description: 25-hydroxyvitamin D3 [Mass/volume] in Serum or [id number] 04:26:00 Test Item Value Reference Range Interpretation Comments Vitamin D, 12.0 ng/mL 30.0-100.0 L Vitamin D defic iency has 25-Hydroxy (test been define d by the code = 43364-4) [employer] of Medicine and an Endocrine [facility] as alevel of serum 25-OH vitamin D less than 20 ng/mL (1,2).The Endocrine Society went on to further define vitamin Dinsufficiency as a level between 21 and 29 ng/mL (2).1. IOM (Ins titute of Medicine). 2010 . Dietary reference int akes for calcium and D. [place]: The [employer] .2. Ela Oliveros, Stephane EMERSON, et al. Evaluatio n, treatment, and prevention of vitamin D deficiency: an Endocrine Society clinica l practice guideline. EM. 2010; 96(7):1911-30.< br/>
P erformed by:
[facility] ([place])

[facility] Description: 25-hydroxyvitamin D3 [Mass/volume] in Serum or [id number] 04:26:00 Test Item Value Reference Range Interpretation Comments Vitamin D, 12.0 ng/mL 30.0-100.0 L Vitamin D defic iency has 25-Hydroxy (test been define d by the code = 38321-6) [employer] of Medicine and an Endocrine So [facility] guidel ine as alevel of serum 25-OH vitamin D less than 20 ng/mL (1,2).The Endocrine Society went on to further define vitamin Dinsufficiency as a level between 21 and 29 ng/mL (2).1. IOM (Ins titute of Medicine). 2010 . Dietary reference int akes for calcium and D. [place]: The [employer] .2. Dileep AREVALO, Ela SANTA, Stephane EMERSON, et al. Evaluatio n, treatment, and prevention of vitamin D deficiency: an Endocrine Society clinica l practice guideline. [facility]. 2010; 96(7):1911-30.< br/>
P erformed by:
[facility] ([place])

[facility] Description: 25-hydroxyvitamin D3 [Mass/volume] in Serum or [id number] 04:26:00 Test Item Value Reference Range Interpretation Comments Vitamin D, 12.0 ng/mL 30.0-100.0 L Vitamin D defic iency has 25-Hydroxy (test been define d by the code = 63005-5) Cotton of Medicine and an Endocrine So [facility] guidel ine as alevel of serum 25-OH vitamin D less than 20 ng/mL (1,2).The Endocrine Society went on to further define vitamin Dinsufficiency as a level between 21 and 29 ng/mL (2).1. IOM (Ins titute of Medicine). 2010 . Dietary reference int akes for calcium and D. [place]: [employer] .2. Dileep MF, Ela NC, Stephane blake EMERSON, et al. Evaluatio n, treatment, and prevention of vitamin D deficiency: an Endocrine Society clinica l practice guideline. [place] EM. 2010; 96(1):1911-30.< br/>
P erformed by:
[facility] ([place])

Access [facility]Panel Description: CBC With Differential/[id number] 04:00:00 Test Item Value Reference Range Interpretation Comments WBC (test code = 6690-2) 6.5 x10E3/uL 3.4-10.8 RBC (test code = 789-8) 4.44 x10E6/uL 4.14-5.80 Hemoglobin (test code = 718-7) 13.7 g/dL 13.0-17.7 Hematocrit (test code = 4544-3) 41.3 % 37.5-51.0 MCV (test code = 787-2) 93 fL 79-97 MCH (test code = 785-6) 30.9 pg 26.6-33.0 MCHC (test code = 786-4) 33.2 g/dL 31.5-35.7 RDW (test code = 788-0) 13.8 % 11.6-15.4 Platelets (test code = 777-3) 229 x10E3/uL 150-450 Neutrophils (test code = 770-8) 63 % Not Estab. Lymphs (test code = 736-9) 20 % Not Estab. Monocytes (test code = 5905-5) 10 % Not Estab. Eos (test code = 713-8) 5 % Not Estab. Basos (test code = 706-2) 1 % Not Estab. Neutrophils (Absolute) (test 4.2 x10E3/uL 1.4-7.0 code = 751-8) Lymphs (Absolute) (test code = 1.3 x10E3/uL 0.7-3.1 731-0) Monocytes(Absolute) (test code 0.6 x10E3/uL 0.1-0.9 = 742-7) Eos (Absolute) (test code = 0.3 x10E3/uL 0.0-0.4 711-2) Baso (Absolute) (test code = 0.1 x10E3/uL 0.0-0.2 704-7) Immature Granulocytes (test 1 % Not Estab. code = 22897-2) Immature Grans (Abs) (test code 0.0 x10E3/uL 0.0-0.1 = 42411-7) NRBC (test code = 59183-2) Hematology Comments: (test code = 63261-2) [facility] Description: CBC With Differential/[id number] 04:00:00 Test Item Value Reference Range Interpretation Comments WBC (test code = 6690-2) 6.5 x10E3/uL 3.4-10.8 RBC (test code = 789-8) 4.44 x10E6/uL 4.14-5.80 Hemoglobin (test code = 718-7) 13.7 g/dL 13.0-17.7 Hematocrit (test code = 4544-3) 41.3 % 37.5-51.0 MCV (test code = 787-2) 93 fL 79-97 MCH (test code = 785-6) 30.9 pg 26.6-33.0 MCHC (test code = 786-4) 33.2 g/dL 31.5-35.7 RDW (test code = 788-0) 13.8 % 11.6-15.4 Platelets (test code = 777-3) 229 x10E3/uL 150-450 Neutrophils (test code = 770-8) 63 % Not Estab. Lymphs (test code = 736-9) 20 % Not Estab. Monocytes (test code = 5905-5) 10 % Not Estab. Eos (test code = 713-8) 5 % Not Estab. Basos (test code = 706-2) 1 % Not Estab. Neutrophils (Absolute) (test 4.2 x10E3/uL 1.4-7.0 code = 751-8) Lymphs (Absolute) (test code = 1.3 x10E3/uL 0.7-3.1 731-0) Monocytes(Absolute) (test code 0.6 x10E3/uL 0.1-0.9 = 742-7) Eos (Absolute) (test code = 0.3 x10E3/uL 0.0-0.4 711-2) Baso (Absolute) (test code = 0.1 x10E3/uL 0.0-0.2 704-7) Immature Granulocytes (test 1 % Not Estab. code = 98315-1) Immature Grans (Abs) (test code 0.0 x10E3/uL 0.0-0.1 = 25252-6) NRBC (test code = 61352-1) Hematology Comments: (test code = 44328-5) [facility] Description: CBC With Differential/Iaijulvb1193-84-45 04:00:00 Test Item Value Reference Range Interpretation Comments WBC (test code = 6690-2) 6.5 x10E3/uL 3.4-10.8 RBC (test code = 789-8) 4.44 x10E6/uL 4.14-5.80 Hemoglobin (test code = 718-7) 13.7 g/dL 13.0-17.7 Hematocrit (test code = 4544-3) 41.3 % 37.5-51.0 MCV (test code = 787-2) 93 fL 79-97 MCH (test code = 785-6) 30.9 pg 26.6-33.0 MCHC (test code = 786-4) 33.2 g/dL 31.5-35.7 RDW (test code = 788-0) 13.8 % 11.6-15.4 Platelets (test code = 777-3) 229 x10E3/uL 150-450 Neutrophils (test code = 770-8) 63 % Not Estab. Lymphs (test code = 736-9) 20 % Not Estab. Monocytes (test code = 5905-5) 10 % Not Estab. Eos (test code = 713-8) 5 % Not Estab. Basos (test code = 706-2) 1 % Not Estab. Neutrophils (Absolute) (test 4.2 x10E3/uL 1.4-7.0 code = 751-8) Lymphs (Absolute) (test code = 1.3 x10E3/uL 0.7-3.1 731-0) Monocytes(Absolute) (test code 0.6 x10E3/uL 0.1-0.9 = 742-7) Eos (Absolute) (test code = 0.3 x10E3/uL 0.0-0.4 711-2) Baso (Absolute) (test code = 0.1 x10E3/uL 0.0-0.2 704-7) Immature Granulocytes (test 1 % Not Estab. code = 23731-4) Immature Grans (Abs) (test code 0.0 x10E3/uL 0.0-0.1 = 16995-2) NRBC (test code = 41320-2) Hematology Comments: (test code = 40075-8) [facility] Description: CBC With Differential/Qiivrepb5082-30-99 04:00:00 Test Item Value Reference Range Interpretation Comments WBC (test code = 6690-2) 6.5 x10E3/uL 3.4-10.8 RBC (test code = 789-8) 4.44 x10E6/uL 4.14-5.80 Hemoglobin (test code = 718-7) 13.7 g/dL 13.0-17.7 Hematocrit (test code = 4544-3) 41.3 % 37.5-51.0 MCV (test code = 787-2) 93 fL 79-97 MCH (test code = 785-6) 30.9 pg 26.6-33.0 MCHC (test code = 786-4) 33.2 g/dL 31.5-35.7 RDW (test code = 788-0) 13.8 % 11.6-15.4 Platelets (test code = 777-3) 229 x10E3/uL 150-450 Neutrophils (test code = 770-8) 63 % Not Estab. Lymphs (test code = 736-9) 20 % Not Estab. Monocytes (test code = 5905-5) 10 % Not Estab. Eos (test code = 713-8) 5 % Not Estab. Basos (test code = 706-2) 1 % Not Estab. Neutrophils (Absolute) (test 4.2 x10E3/uL 1.4-7.0 code = 751-8) Lymphs (Absolute) (test code = 1.3 x10E3/uL 0.7-3.1 731-0) Monocytes(Absolute) (test code 0.6 x10E3/uL 0.1-0.9 = 742-7) Eos (Absolute) (test code = 0.3 x10E3/uL 0.0-0.4 711-2) Baso (Absolute) (test code = 0.1 x10E3/uL 0.0-0.2 704-7) Immature Granulocytes (test 1 % Not Estab. code = 88070-4) Immature Grans (Abs) (test code 0.0 x10E3/uL 0.0-0.1 = 44415-9) NRBC (test code = 57511-7) Hematology Comments: (test code = 89657-8) [facility] Description: CBC With Differential/[id number] 04:00:00 Test Item Value Reference Range Interpretation Comments WBC (test code = 6690-2) 6.5 x10E3/uL 3.4-10.8 RBC (test code = 789-8) 4.44 x10E6/uL 4.14-5.80 Hemoglobin (test code = 718-7) 13.7 g/dL 13.0-17.7 Hematocrit (test code = 4544-3) 41.3 % 37.5-51.0 MCV (test code = 787-2) 93 fL 79-97 MCH (test code = 785-6) 30.9 pg 26.6-33.0 MCHC (test code = 786-4) 33.2 g/dL 31.5-35.7 RDW (test code = 788-0) 13.8 % 11.6-15.4 Platelets (test code = 777-3) 229 x10E3/uL 150-450 Neutrophils (test code = 770-8) 63 % Not Estab. Lymphs (test code = 736-9) 20 % Not Estab. Monocytes (test code = 5905-5) 10 % Not Estab. Eos (test code = 713-8) 5 % Not Estab. Basos (test code = 706-2) 1 % Not Estab. Neutrophils (Absolute) (test 4.2 x10E3/uL 1.4-7.0 code = 751-8) Lymphs (Absolute) (test code = 1.3 x10E3/uL 0.7-3.1 731-0) Monocytes(Absolute) (test code 0.6 x10E3/uL 0.1-0.9 = 742-7) Eos (Absolute) (test code = 0.3 x10E3/uL 0.0-0.4 711-2) Baso (Absolute) (test code = 0.1 x10E3/uL 0.0-0.2 704-7) Immature Granulocytes (test 1 % Not Estab. code = 02888-5) Immature Grans (Abs) (test code 0.0 x10E3/uL 0.0-0.1 = 61086-8) NRBC (test code = 16928-1) Hematology Comments: (test code = 57338-3) [facility] Description: CBC With Differential/Dxozehhc1494-95-13 04:00:00 Test Item Value Reference Range Interpretation Comments WBC (test code = 6690-2) 6.5 x10E3/uL 3.4-10.8 RBC (test code = 789-8) 4.44 x10E6/uL 4.14-5.80 Hemoglobin (test code = 718-7) 13.7 g/dL 13.0-17.7 Hematocrit (test code = 4544-3) 41.3 % 37.5-51.0 MCV (test code = 787-2) 93 fL 79-97 MCH (test code = 785-6) 30.9 pg 26.6-33.0 MCHC (test code = 786-4) 33.2 g/dL 31.5-35.7 RDW (test code = 788-0) 13.8 % 11.6-15.4 Platelets (test code = 777-3) 229 x10E3/uL 150-450 Neutrophils (test code = 770-8) 63 % Not Estab. Lymphs (test code = 736-9) 20 % Not Estab. Monocytes (test code = 5905-5) 10 % Not Estab. Eos (test code = 713-8) 5 % Not Estab. Basos (test code = 706-2) 1 % Not Estab. Neutrophils (Absolute) (test 4.2 x10E3/uL 1.4-7.0 code = 751-8) Lymphs (Absolute) (test code = 1.3 x10E3/uL 0.7-3.1 731-0) Monocytes(Absolute) (test code 0.6 x10E3/uL 0.1-0.9 = 742-7) Eos (Absolute) (test code = 0.3 x10E3/uL 0.0-0.4 711-2) Baso (Absolute) (test code = 0.1 x10E3/uL 0.0-0.2 704-7) Immature Granulocytes (test 1 % Not Estab. code = 54613-2) Immature Grans (Abs) (test code 0.0 x10E3/uL 0.0-0.1 = 06587-4) NRBC (test code = 01375-3) Hematology Comments: (test code = 54557-3) [facility] Description: CBC With Differential/Jmjrgxnp7876-34-89 04:00:00 Test Item Value Reference Range Interpretation Comments WBC (test code = 6690-2) 6.5 x10E3/uL 3.4-10.8 RBC (test code = 789-8) 4.44 x10E6/uL 4.14-5.80 Hemoglobin (test code = 718-7) 13.7 g/dL 13.0-17.7 Hematocrit (test code = 4544-3) 41.3 % 37.5-51.0 MCV (test code = 787-2) 93 fL 79-97 MCH (test code = 785-6) 30.9 pg 26.6-33.0 MCHC (test code = 786-4) 33.2 g/dL 31.5-35.7 RDW (test code = 788-0) 13.8 % 11.6-15.4 Platelets (test code = 777-3) 229 x10E3/uL 150-450 Neutrophils (test code = 770-8) 63 % Not Estab. Lymphs (test code = 736-9) 20 % Not Estab. Monocytes (test code = 5905-5) 10 % Not Estab. Eos (test code = 713-8) 5 % Not Estab. Basos (test code = 706-2) 1 % Not Estab. Neutrophils (Absolute) (test 4.2 x10E3/uL 1.4-7.0 code = 751-8) Lymphs (Absolute) (test code = 1.3 x10E3/uL 0.7-3.1 731-0) Monocytes(Absolute) (test code 0.6 x10E3/uL 0.1-0.9 = 742-7) Eos (Absolute) (test code = 0.3 x10E3/uL 0.0-0.4 711-2) Baso (Absolute) (test code = 0.1 x10E3/uL 0.0-0.2 704-7) Immature Granulocytes (test 1 % Not Estab. code = 80525-4) Immature Grans (Abs) (test code 0.0 x10E3/uL 0.0-0.1 = 70364-2) NRBC (test code = 60438-5) Hematology Comments: (test code = 32258-8) [facility] Description: CBC With Differential/[id number] 04:00:00 Test Item Value Reference Range Interpretation Comments WBC (test code = 6690-2) 6.5 x10E3/uL 3.4-10.8 RBC (test code = 789-8) 4.44 x10E6/uL 4.14-5.80 Hemoglobin (test code = 718-7) 13.7 g/dL 13.0-17.7 Hematocrit (test code = 4544-3) 41.3 % 37.5-51.0 MCV (test code = 787-2) 93 fL 79-97 MCH (test code = 785-6) 30.9 pg 26.6-33.0 MCHC (test code = 786-4) 33.2 g/dL 31.5-35.7 RDW (test code = 788-0) 13.8 % 11.6-15.4 Platelets (test code = 777-3) 229 x10E3/uL 150-450 Neutrophils (test code = 770-8) 63 % Not Estab. Lymphs (test code = 736-9) 20 % Not Estab. Monocytes (test code = 5905-5) 10 % Not Estab. Eos (test code = 713-8) 5 % Not Estab. Basos (test code = 706-2) 1 % Not Estab. Neutrophils (Absolute) (test 4.2 x10E3/uL 1.4-7.0 code = 751-8) Lymphs (Absolute) (test code = 1.3 x10E3/uL 0.7-3.1 731-0) Monocytes(Absolute) (test code 0.6 x10E3/uL 0.1-0.9 = 742-7) Eos (Absolute) (test code = 0.3 x10E3/uL 0.0-0.4 711-2) Baso (Absolute) (test code = 0.1 x10E3/uL 0.0-0.2 704-7) Immature Granulocytes (test 1 % Not Estab. code = 84061-0) Immature Grans (Abs) (test code 0.0 x10E3/uL 0.0-0.1 = 57974-5) NRBC (test code = 97378-2) Hematology Comments: (test code = 22363-4) [facility] Description: CBC With Differential/[id number] 04:00:00 Test Item Value Reference Range Interpretation Comments WBC (test code = 6690-2) 6.5 x10E3/uL 3.4-10.8 RBC (test code = 789-8) 4.44 x10E6/uL 4.14-5.80 Hemoglobin (test code = 718-7) 13.7 g/dL 13.0-17.7 Hematocrit (test code = 4544-3) 41.3 % 37.5-51.0 MCV (test code = 787-2) 93 fL 79-97 MCH (test code = 785-6) 30.9 pg 26.6-33.0 MCHC (test code = 786-4) 33.2 g/dL 31.5-35.7 RDW (test code = 788-0) 13.8 % 11.6-15.4 Platelets (test code = 777-3) 229 x10E3/uL 150-450 Neutrophils (test code = 770-8) 63 % Not Estab. Lymphs (test code = 736-9) 20 % Not Estab. Monocytes (test code = 5905-5) 10 % Not Estab. Eos (test code = 713-8) 5 % Not Estab. Basos (test code = 706-2) 1 % Not Estab. Neutrophils (Absolute) (test 4.2 x10E3/uL 1.4-7.0 code = 751-8) Lymphs (Absolute) (test code = 1.3 x10E3/uL 0.7-3.1 731-0) Monocytes(Absolute) (test code 0.6 x10E3/uL 0.1-0.9 = 742-7) Eos (Absolute) (test code = 0.3 x10E3/uL 0.0-0.4 711-2) Baso (Absolute) (test code = 0.1 x10E3/uL 0.0-0.2 704-7) Immature Granulocytes (test 1 % Not Estab. code = 36237-1) Immature Grans (Abs) (test code 0.0 x10E3/uL 0.0-0.1 = 27535-0) NRBC (test code = 39198-5) Hematology Comments: (test code = 00590-1) [facility] Description: CBC With Differential/Mxnlvuwv4299-13-17 04:00:00 Test Item Value Reference Range Interpretation Comments WBC (test code = 6690-2) 6.5 x10E3/uL 3.4-10.8 RBC (test code = 789-8) 4.44 x10E6/uL 4.14-5.80 Hemoglobin (test code = 718-7) 13.7 g/dL 13.0-17.7 Hematocrit (test code = 4544-3) 41.3 % 37.5-51.0 MCV (test code = 787-2) 93 fL 79-97 MCH (test code = 785-6) 30.9 pg 26.6-33.0 MCHC (test code = 786-4) 33.2 g/dL 31.5-35.7 RDW (test code = 788-0) 13.8 % 11.6-15.4 Platelets (test code = 777-3) 229 x10E3/uL 150-450 Neutrophils (test code = 770-8) 63 % Not Estab. Lymphs (test code = 736-9) 20 % Not Estab. Monocytes (test code = 5905-5) 10 % Not Estab. Eos (test code = 713-8) 5 % Not Estab. Basos (test code = 706-2) 1 % Not Estab. Neutrophils (Absolute) (test 4.2 x10E3/uL 1.4-7.0 code = 751-8) Lymphs (Absolute) (test code = 1.3 x10E3/uL 0.7-3.1 731-0) Monocytes(Absolute) (test code 0.6 x10E3/uL 0.1-0.9 = 742-7) Eos (Absolute) (test code = 0.3 x10E3/uL 0.0-0.4 711-2) Baso (Absolute) (test code = 0.1 x10E3/uL 0.0-0.2 704-7) Immature Granulocytes (test 1 % Not Estab. code = 51141-6) Immature Grans (Abs) (test code 0.0 x10E3/uL 0.0-0.1 = 95471-2) NRBC (test code = 07630-5) Hematology Comments: (test code = 09412-5) [facility] Description: Magnesium [Mass/volume] in Serum or Plasma 2020-10-30 02:31:00 Test Item Value Reference Range Interpretation Comments Magnesium (test code = 24372-9) 1.6 mg/dL 1.6-2.3 [facility] Description: Magnesium [Mass/volume] in Serum or Plasma 2020-10-30 02:31:00 Test Item Value Reference Range Interpretation Comments Magnesium (test code = 98386-0) 1.6 mg/dL 1.6-2.3 [facility] Description: Magnesium [Mass/volume] in Serum or Plasma 2020-10-30 02:31:00 Test Item Value Reference Range Interpretation Comments Magnesium (test code = 37732-1) 1.6 mg/dL 1.6-2.3 [facility] Description: Magnesium [Mass/volume] in Serum or Plasma 2020-10-30 02:31:00 Test Item Value Reference Range Interpretation Comments Magnesium (test code = 68929-8) 1.6 mg/dL 1.6-2.3 [facility] Description: Magnesium [Mass/volume] in Serum or Plasma 2020-10-30 02:31:00 Test Item Value Reference Range Interpretation Comments Magnesium (test code = 53892-4) 1.6 mg/dL 1.6-2.3 [facility] Description: Magnesium [Mass/volume] in Serum or Plasma 2020-10-30 02:31:00 Test Item Value Reference Range Interpretation Comments Magnesium (test code = 74532-5) 1.6 mg/dL 1.6-2.3 [facility] Description: Magnesium [Mass/volume] in Serum or Plasma 2020-10-30 02:31:00 Test Item Value Reference Range Interpretation Comments Magnesium (test code = 74323-8) 1.6 mg/dL 1.6-2.3 [facility] Description: Magnesium [Mass/volume] in Serum or Plasma 2020-10-30 02:31:00 Test Item Value Reference Range Interpretation Comments Magnesium (test code = 05862-3) 1.6 mg/dL 1.6-2.3 [facility] Description: Magnesium [Mass/volume] in Serum or Plasma 2020-10-30 02:31:00 Test Item Value Reference Range Interpretation Comments Magnesium (test code = 85858-3) 1.6 mg/dL 1.6-2.3 [facility] Description: Magnesium [Mass/volume] in Serum or Plasma 2020-10-30 02:31:00 Test Item Value Reference Range Interpretation Comments Magnesium (test code = 74596-4) 1.6 mg/dL 1.6-2.3 [facility] Description: Lipid [id number] 02:17:00 Test Item Value Reference Range Interpretation Comments Cholesterol, Total (test code = 167 mg/dL 273-100 1852-3) Triglycerides (test code = 2571-8) 60 mg/dL 0-149 HDL Cholesterol (test code = 33 mg/dL >39 L 5-9) VLDL Cholesterol [place] (test code = 12 mg/dL 5-40 56176-5) LDL Chol Calc (NIH) (test code = 122 mg/dL 0-99 H 70024-5) Comment: (test code = 62808-0) [facility] Description: Lipid [id number] 02:17:00 Test Item Value Reference Range Interpretation Comments Cholesterol, Total (test code = 167 mg/dL 404-730 2389-3) Triglycerides (test code = 2571-8) 60 mg/dL 0-149 HDL Cholesterol (test code = 33 mg/dL >39 L 5-9) VLDL Cholesterol Renuka (test code = 12 mg/dL 5-40 56988-2) LDL Chol Calc (NIH) (test code = 122 mg/dL 0-99 H 99034-8) Comment: (test code = 50791-1) [facility] Description: Lipid [id number] 02:17:00 Test Item Value Reference Range Interpretation Comments Cholesterol, Total (test code = 167 mg/dL 915-504 6301-3) Triglycerides (test code = 2571-8) 60 mg/dL 0-149 HDL Cholesterol (test code = 33 mg/dL >39 L 5-9) VLDL Cholesterol Renuka (test code = 12 mg/dL 5-40 12961-3) LDL Chol Calc (NIH) (test code = 122 mg/dL 0-99 H 72200-6) Comment: (test code = 03393-4) [facility] Description: Lipid [id number] 02:17:00 Test Item Value Reference Range Interpretation Comments Cholesterol, Total (test code = 167 mg/dL 595-249 8120-3) Triglycerides (test code = 2571-8) 60 mg/dL 0-149 HDL Cholesterol (test code = 33 mg/dL >39 L 5-9) VLDL Cholesterol Renuka (test code = 12 mg/dL 5-40 20560-9) LDL Chol Calc (NIH) (test code = 122 mg/dL 0-99 H 85190-2) Comment: (test code = 83247-9) [facility] Description: Lipid [id number] 02:17:00 Test Item Value Reference Range Interpretation Comments Cholesterol, Total (test code = 167 mg/dL 648-623 3455-3) Triglycerides (test code = 2571-8) 60 mg/dL 0-149 HDL Cholesterol (test code = 33 mg/dL >39 L 5-9) VLDL Cholesterol Renuka (test code = 12 mg/dL 5-40 71743-9) LDL Chol Calc (NIH) (test code = 122 mg/dL 0-99 H 03306-6) Comment: (test code = 69394-2) [facility] Description: Lipid [id number] 02:17:00 Test Item Value Reference Range Interpretation Comments Cholesterol, Total (test code = 167 mg/dL 312-869 3822-3) Triglycerides (test code = 2571-8) 60 mg/dL 0-149 HDL Cholesterol (test code = 33 mg/dL >39 L 2085-9) VLDL Cholesterol Renuka (test code = 12 mg/dL 5-40 32315-9) LDL Chol Calc (NIH) (test code = 122 mg/dL 0-99 H 91213-7) Comment: (test code = 06076-2) [facility] Description: Lipid [id number] 02:17:00 Test Item Value Reference Range Interpretation Comments Cholesterol, Total (test code = 167 mg/dL 087-340 6215-3) Triglycerides (test code = 2571-8) 60 mg/dL 0-149 HDL Cholesterol (test code = 33 mg/dL >39 L 2085-9) VLDL Cholesterol Renuka (test code = 12 mg/dL 5-40 69050-9) LDL Chol Calc (NIH) (test code = 122 mg/dL 0-99 H 65942-5) Comment: (test code = 92088-0) [facility] Description: Lipid [id number] 02:17:00 Test Item Value Reference Range Interpretation Comments Cholesterol, Total (test code = 167 mg/dL 723-056 9111-3) Triglycerides (test code = 2571-8) 60 mg/dL 0-149 HDL Cholesterol (test code = 33 mg/dL >39 L 5-9) VLDL Cholesterol Renuka (test code = 12 mg/dL 5-40 11759-9) LDL Chol Calc (NIH) (test code = 122 mg/dL 0-99 H 64116-2) Comment: (test code = 66990-5) [facility] Description: Lipid [id number] 02:17:00 Test Item Value Reference Range Interpretation Comments Cholesterol, Total (test code = 167 mg/dL 560-455 1663-3) Triglycerides (test code = 2571-8) 60 mg/dL 0-149 HDL Cholesterol (test code = 33 mg/dL >39 L 2085-9) VLDL Cholesterol Renuka (test code = 12 mg/dL 5-40 48712-0) LDL Chol Calc (NIH) (test code = 122 mg/dL 0-99 H 09097-5) Comment: (test code = 11642-6) [facility] Description: Lipid [id number] 02:17:00 Test Item Value Reference Range Interpretation Comments Cholesterol, Total (test code = 167 mg/dL 895-495 4033-3) Triglycerides (test code = 2571-8) 60 mg/dL 0-149 HDL Cholesterol (test code = 33 mg/dL >39 L 2085-9) VLDL Cholesterol Renuka (test code = 12 mg/dL 5-40 61075-4) LDL Chol Calc (NIH) (test code = 122 mg/dL 0-99 H 79604-1) Comment: (test code = 72477-5) [facility] Description: Comp. Metabolic Panel (14)2020-10-30 01:58:00 Test Item Value Reference Range Interpretation Comments Glucose (test code 50 mg/dL 65-99 L = 2345-7) BUN (test code = 52 mg/dL 6-24 H 3094-0) Creatinine (test 2.04 mg/dL 0.76-1.27 H code = 2160-0) eGFR If NonAfricn 38 >59 L Am (test code = mL/min/1.73 38896-6) eGFR If Africn Am 44 >59 L [facility] currently (test code = mL/min/1[place]73 [place] [address]-4) compliance with the current recommendations of the National Kidney Foundation. [place] will update re porting as new guidelin es are published from the NKF-ASN Task force.
<br/ >Perfor med by:
Lab [place] Kaur (HD)

BUN/Creatinine 25 9-20 H Ratio (test code = 3097-3) Sodium (test code = 142 mmol/L 549-934 9776-2) Potassium (test 4.1 mmol/L 3.5-5.2 code = 2823-3) Chloride (test code 103 mmol/L 96-106 = 5-0) Carbon Dioxide, 27 mmol/L 20-29 Total (test code = 2027-) Calcium (test code 8.8 mg/dL 8.7-10.2 = 68927-4) Protein, Total 6.8 g/dL 6.0-8.5 (test code = 2885-2) Albumin (test code 3.3 g/dL 4.0-5.0 L = 1751-7) Globulin, Total 3.5 g/dL 1.5-4.5 (test code = 40369-2) A/G Ratio (test 0.9 1.2-2.2 L code = 1759-0) Bilirubin, Total 0.7 mg/dL 0.0-1.2 (test code = 1975-2) Alkaline 140 IU/L 48-121 H Phosphatase (test code = 6768-6) AST (SGOT) (test 14 IU/L 0-40 code = 1920-8) ALT (SGPT) (test 21 IU/L 0-44 code = 1742-6) [facility] Description: Comp. Metabolic Panel (14)2020-10-30 01:58:00 Test Item Value Reference Range Interpretation Comments Glucose (test code 50 mg/dL 65-99 L = 2345-7) BUN (test code = 52 mg/dL 6-24 H 3094-0) Creatinine (test 2.04 mg/dL 0.76-1.27 H code = 2160-0) eGFR If NonAfricn 38 >59 L Am (test code = mL/min/1.73 31550-4) eGFR If Africn Am 44 >59 L [facility] currently (test code = mL/min/1[place]73 [place] [address]-4) compliance with the current recommendations of the National Kidney Foundation. [place] will update re porting as new guidelin es are published from the NKF-ASN Task force.
<br/ >Perfor med by:
Lab [place] Kaur (HD)

BUN/Creatinine 25 9-20 H Ratio (test code = 3097-3) Sodium (test code = 142 mmol/L 879-454 8315-2) Potassium (test 4.1 mmol/L 3.5-5.2 code = 2823-3) Chloride (test code 103 mmol/L 96-106 = 2075-0) Carbon Dioxide, 27 mmol/L 20-29 Total (test code = 2027-) Calcium (test code 8.8 mg/dL 8.7-10.2 = 62749-8) Protein, Total 6.8 g/dL 6.0-8.5 (test code = 2885-2) Albumin (test code 3.3 g/dL 4.0-5.0 L = 1751-7) Globulin, Total 3.5 g/dL 1.5-4.5 (test code = 42817-5) A/G Ratio (test 0.9 1.2-2.2 L code = 1759-0) Bilirubin, Total 0.7 mg/dL 0.0-1.2 (test code = 1975-2) Alkaline 140 IU/L 48-121 H Phosphatase (test code = 6768-6) AST (SGOT) (test 14 IU/L 0-40 code = 1920-8) ALT (SGPT) (test 21 IU/L 0-44 code = 1742-6) [facility] Description: Comp. Metabolic Panel (14)2020-10-30 01:58:00 Test Item Value Reference Range Interpretation Comments Glucose (test code 50 mg/dL 65-99 L = 2345-7) BUN (test code = 52 mg/dL 6-24 H 3094-0) Creatinine (test 2.04 mg/dL 0.76-1.27 H code = 2160-0) eGFR If NonAfricn 38 >59 L Am (test code = mL/min/1.73 92366-0) eGFR If Africn Am 44 >59 L [facility] currently (test code = mL/min/1.73 [place] [address]-9) compliance with the current recommendations of the National Kidney Foundation. [place] will update re porting as new guidelin es are published from the NKF-ASN Task force.
<br/ >Perfor med by:
Lab [place] Kaur (HD)

BUN/Creatinine 25 9-20 H Ratio (test code = 3097-3) Sodium (test code = 142 mmol/L 000-698 7881-2) Potassium (test 4.1 mmol/L 3.5-5.2 code = 2823-3) Chloride (test code 103 mmol/L 96-106 = 2075-0) Carbon Dioxide, 27 mmol/L 20-29 Total (test code = 2027-9) Calcium (test code 8.8 mg/dL 8.7-10.2 = 00791-5) Protein, Total 6.8 g/dL 6.0-8.5 (test code = 2885-2) Albumin (test code 3.3 g/dL 4.0-5.0 L = 1751-7) Globulin, Total 3.5 g/dL 1.5-4.5 (test code = 20683-9) A/G Ratio (test 0.9 1.2-2.2 L code = 1759-0) Bilirubin, Total 0.7 mg/dL 0.0-1.2 (test code = 1975-2) Alkaline 140 IU/L 48-121 H Phosphatase (test code = 6768-6) AST (SGOT) (test 14 IU/L 0-40 code = 1920-8) ALT (SGPT) (test 21 IU/L 0-44 code = 1742-6) [facility] Description: Comp. Metabolic Panel (14)2020-10-30 01:58:00 Test Item Value Reference Range Interpretation Comments Glucose (test code 50 mg/dL 65-99 L = 2345-7) BUN (test code = 52 mg/dL 6-24 H 3094-0) Creatinine (test 2.04 mg/dL 0.76-1.27 H code = 2160-0) eGFR If NonAfricn 38 >59 L Am (test code = mL/min/1.73 66376-6) eGFR If Africn Am 44 >59 L [facility] currently (test code = mL/min/1.73 [place] [address]-2) compliance with the current recommendations of the National Kidney Foundation. [place] will update re porting as new guidelin es are published from the NKF-ASN Task force.
<br/ >Perfor med by:
Lab [place] Kaur (HD)

BUN/Creatinine 25 9-20 H Ratio (test code = 3097-3) Sodium (test code = 142 mmol/L 043-039 0681-2) Potassium (test 4.1 mmol/L 3.5-5.2 code = 2823-3) Chloride (test code 103 mmol/L 96-106 = 2075-0) Carbon Dioxide, 27 mmol/L 20-29 Total (test code = 2027-9) Calcium (test code 8.8 mg/dL 8.7-10.2 = 88139-9) Protein, Total 6.8 g/dL 6.0-8.5 (test code = 2885-2) Albumin (test code 3.3 g/dL 4.0-5.0 L = 1751-7) Globulin, Total 3.5 g/dL 1.5-4.5 (test code = 13334-0) A/G Ratio (test 0.9 1.2-2.2 L code = 1759-0) Bilirubin, Total 0.7 mg/dL 0.0-1.2 (test code = 1975-2) Alkaline 140 IU/L 48-121 H Phosphatase (test code = 6768-6) AST (SGOT) (test 14 IU/L 0-40 code = 1920-8) ALT (SGPT) (test 21 IU/L 0-44 code = 1742-6) [facility] Description: Comp. Metabolic Panel (14)2020-10-30 01:58:00 Test Item Value Reference Range Interpretation Comments Glucose (test code 50 mg/dL 65-99 L = 2345-7) BUN (test code = 52 mg/dL 6-24 H 3094-0) Creatinine (test 2.04 mg/dL 0.76-1.27 H code = 2160-0) eGFR If NonAfricn 38 >59 L Am (test code = mL/min/1.73 80472-1) eGFR If Africn Am 44 >59 L [facility] currently (test code = mL/min/1.73 [place] [address]-0) compliance with the current recommendations of the National Kidney Foundation. [place] will update re porting as new guidelin es are published from the NKF-ASN Task force.
<br/ >Perfor med by:
Lab [place] Kaur (HD)

BUN/Creatinine 25 9-20 H Ratio (test code = 3097-3) Sodium (test code = 142 mmol/L 826-615 7057-2) Potassium (test 4.1 mmol/L 3.5-5.2 code = 2823-3) Chloride (test code 103 mmol/L 96-106 = 2075-0) Carbon Dioxide, 27 mmol/L 20-29 Total (test code = 2027-) Calcium (test code 8.8 mg/dL 8.7-10.2 = 67477-9) Protein, Total 6.8 g/dL 6.0-8.5 (test code = 2885-2) Albumin (test code 3.3 g/dL 4.0-5.0 L = 1751-7) Globulin, Total 3.5 g/dL 1.5-4.5 (test code = 22595-4) A/G Ratio (test 0.9 1.2-2.2 L code = 1759-0) Bilirubin, Total 0.7 mg/dL 0.0-1.2 (test code = 1975-2) Alkaline 140 IU/L 48-121 H Phosphatase (test code = 6768-6) AST (SGOT) (test 14 IU/L 0-40 code = 1920-8) ALT (SGPT) (test 21 IU/L 0-44 code = 1742-6) [facility] Description: Comp. Metabolic Panel (14)2020-10-30 01:58:00 Test Item Value Reference Range Interpretation Comments Glucose (test code 50 mg/dL 65-99 L = 2345-7) BUN (test code = 52 mg/dL 6-24 H 3094-0) Creatinine (test 2.04 mg/dL 0.76-1.27 H code = 2160-0) eGFR If NonAfricn 38 >59 L Am (test code = mL/min/1.73 89502-5) eGFR If Africn Am 44 >59 L [facility] currently (test code = mL/min/1.73 [place] [address]-2) compliance with the current recommendations of the National Kidney Foundation. [place] will update re porting as new guidelin es are published from the NKF-ASN Task force.
<br/ >Perfor med by:
Lab [place] Kaur (HD)

BUN/Creatinine 25 9-20 H Ratio (test code = 3097-3) Sodium (test code = 142 mmol/L 221-747 5189-2) Potassium (test 4.1 mmol/L 3.5-5.2 code = 2823-3) Chloride (test code 103 mmol/L 96-106 = 2075-0) Carbon Dioxide, 27 mmol/L 20-29 Total (test code = 2027-9) Calcium (test code 8.8 mg/dL 8.7-10.2 = 58647-1) Protein, Total 6.8 g/dL 6.0-8.5 (test code = 2885-2) Albumin (test code 3.3 g/dL 4.0-5.0 L = 1751-7) Globulin, Total 3.5 g/dL 1.5-4.5 (test code = 56523-7) A/G Ratio (test 0.9 1.2-2.2 L code = 1759-0) Bilirubin, Total 0.7 mg/dL 0.0-1.2 (test code = 1975-2) Alkaline 140 IU/L 48-121 H Phosphatase (test code = 6768-6) AST (SGOT) (test 14 IU/L 0-40 code = 1920-8) ALT (SGPT) (test 21 IU/L 0-44 code = 1742-6) [facility] Description: Comp. Metabolic Panel (14)2020-10-30 01:58:00 Test Item Value Reference Range Interpretation Comments Glucose (test code 50 mg/dL 65-99 L = 2345-7) BUN (test code = 52 mg/dL 6-24 H 3094-0) Creatinine (test 2.04 mg/dL 0.76-1.27 H code = 2160-0) eGFR If NonAfricn 38 >59 L Am (test code = mL/min/1.73 85578-0) eGFR If Africn Am 44 >59 L [facility] currently (test code = mL/min/1.73 [place] [address]-4) compliance with the current recommendations of the National Kidney Foundation. [place] will update re porting as new guidelin es are published from the NKF-ASN Task force.
<br/ >Perfor med by:
Lab [place] Kaur (HD)

BUN/Creatinine 25 9-20 H Ratio (test code = 3097-3) Sodium (test code = 142 mmol/L 667-820 7902-2) Potassium (test 4.1 mmol/L 3.5-5.2 code = 2823-3) Chloride (test code 103 mmol/L 96-106 = 2075-0) Carbon Dioxide, 27 mmol/L 20-29 Total (test code = 2027-) Calcium (test code 8.8 mg/dL 8.7-10.2 = 35685-2) Protein, Total 6.8 g/dL 6.0-8.5 (test code = 2885-2) Albumin (test code 3.3 g/dL 4.0-5.0 L = 1751-7) Globulin, Total 3.5 g/dL 1.5-4.5 (test code = 93704-4) A/G Ratio (test 0.9 1.2-2.2 L code = 1759-0) Bilirubin, Total 0.7 mg/dL 0.0-1.2 (test code = 1975-2) Alkaline 140 IU/L 48-121 H Phosphatase (test code = 6768-6) AST (SGOT) (test 14 IU/L 0-40 code = 1920-8) ALT (SGPT) (test 21 IU/L 0-44 code = 1742-6) [facility] Description: Comp. Metabolic Panel (14)2020-10-30 01:58:00 Test Item Value Reference Range Interpretation Comments Glucose (test code 50 mg/dL 65-99 L = 2345-7) BUN (test code = 52 mg/dL 6-24 H 3094-0) Creatinine (test 2.04 mg/dL 0.76-1.27 H code = 2160-0) eGFR If NonAfricn 38 >59 L Am (test code = mL/min/1.73 20765-2) eGFR If Africn Am 44 >59 L [facility] currently (test code = mL/min/1.73 [place] [address]-6) compliance with the current recommendations of the National Kidney Foundation. [place] will update re porting as new guidelin es are published from the NKF-ASN Task force.
<br/ >Perfor med by:
Lab [place] Kaur (HD)

BUN/Creatinine 25 9-20 H Ratio (test code = 3097-3) Sodium (test code = 142 mmol/L 747-472 3454-2) Potassium (test 4.1 mmol/L 3.5-5.2 code = 2823-3) Chloride (test code 103 mmol/L 96-106 = 2075-0) Carbon Dioxide, 27 mmol/L 20-29 Total (test code = 2027-) Calcium (test code 8.8 mg/dL 8.7-10.2 = 46536-9) Protein, Total 6.8 g/dL 6.0-8.5 (test code = 2885-2) Albumin (test code 3.3 g/dL 4.0-5.0 L = 1751-7) Globulin, Total 3.5 g/dL 1.5-4.5 (test code = 64064-4) A/G Ratio (test 0.9 1.2-2.2 L code = 1759-0) Bilirubin, Total 0.7 mg/dL 0.0-1.2 (test code = 1975-2) Alkaline 140 IU/L 48-121 H Phosphatase (test code = 6768-6) AST (SGOT) (test 14 IU/L 0-40 code = 1920-8) ALT (SGPT) (test 21 IU/L 0-44 code = 1742-6) [facility] Description: Comp. Metabolic Panel (14)2020-10-30 01:58:00 Test Item Value Reference Range Interpretation Comments Glucose (test code 50 mg/dL 65-99 L = 2345-7) BUN (test code = 52 mg/dL 6-24 H 3094-0) Creatinine (test 2.04 mg/dL 0.76-1.27 H code = 2160-0) eGFR If NonAfricn 38 >59 L Am (test code = mL/min/1.73 43952-4) eGFR If Africn Am 44 >59 L [facility] currently (test code = mL/min/1.73 [place] [address]-5) compliance with the current recommendations of the National Kidney Foundation. [place] will update re porting as new guidelin es are published from the NKF-ASN Task force.
<br/ >Perfor med by:
[facility] [place] Kaur (HD)

BUN/Creatinine 25 9-20 H Ratio (test code = 3097-3) Sodium (test code = 142 mmol/L 919-697 7639-2) Potassium (test 4.1 mmol/L 3.5-5.2 code = 2823-3) Chloride (test code 103 mmol/L 96-106 = 2075-0) Carbon Dioxide, 27 mmol/L 20-29 Total (test code = 2027-9) Calcium (test code 8.8 mg/dL 8.7-10.2 = 17271-2) Protein, Total 6.8 g/dL 6.0-8.5 (test code = 2885-2) Albumin (test code 3.3 g/dL 4.0-5.0 L = 1751-7) Globulin, Total 3.5 g/dL 1.5-4.5 (test code = 74119-2) A/G Ratio (test 0.9 1.2-2.2 L code = 1759-0) Bilirubin, Total 0.7 mg/dL 0.0-1.2 (test code = 1975-2) Alkaline 140 IU/L 48-121 H Phosphatase (test code = 6768-6) AST (SGOT) (test 14 IU/L 0-40 code = 1920-8) ALT (SGPT) (test 21 IU/L 0-44 code = 1742-6) [facility] Description: Comp. Metabolic Panel (14)2020-10-30 01:58:00 Test Item Value Reference Range Interpretation Comments Glucose (test code 50 mg/dL 65-99 L = 2345-7) BUN (test code = 52 mg/dL 6-24 H 3094-0) Creatinine (test 2.04 mg/dL 0.76-1.27 H code = 2160-0) eGFR If NonAfricn 38 >59 L Am (test code = mL/min/1.73 88588-8) eGFR If Africn Am 44 >59 L [facility] currently (test code = mL/min/1.73 [place] [address]19-1) compliance with the current recommendations of the National Kidney Foundation. [place] will update re porting as new guidelin es are published from the NKF-ASN Task force.
<br/ >Perfor med by:
[facility] [place] Kaur (HD)

BUN/Creatinine 25 9-20 H Ratio (test code = 3097-3) Sodium (test code = 142 mmol/L 086-406 3242-2) Potassium (test 4.1 mmol/L 3.5-5.2 code = 2823-3) Chloride (test code 103 mmol/L 96-106 = 2075-0) Carbon Dioxide, 27 mmol/L 20-29 Total (test code = 2027-) Calcium (test code 8.8 mg/dL 8.7-10.2 = 79776-8) Protein, Total 6.8 g/dL 6.0-8.5 (test code = 2885-2) Albumin (test code 3.3 g/dL 4.0-5.0 L = 1751-7) Globulin, Total 3.5 g/dL 1.5-4.5 (test code = 62305-3) A/G Ratio (test 0.9 1.2-2.2 L code = 1759-0) Bilirubin, Total 0.7 mg/dL 0.0-1.2 (test code = 1975-2) Alkaline 140 IU/L 48-121 H Phosphatase (test code = 6768-6) AST (SGOT) (test 14 IU/L 0-40 code = 1920-8) ALT (SGPT) (test 21 IU/L 0-44 code = 1742-6) [facility] HAND RIGHT COMPLETE 3 [id number] 11:29:03 [facility] : 1975 Sex: MRight hand, 3 viewsLocation code: [id number] HISTORY: Pain in second finger of right handCOMMENTS: AP, lateral, and oblique views of the right hand demonstrate no acute fracture or malalignment. There is soft tissue swelling about the second digit without foreign body.IMPRESSION:1. Soft tissue swelling about the second digit without fracture or foreign body. Note made of mild arthrosis about the second MP joint.Electronically signed by: Sylvester Case MD 10/29/2020 11:29 AM CDT [id number] OBTAINED CULTURE + GRAM [id number] 15:17:00 Test Item Value Reference Interpretation Comments Range CULTURE (BEAKER) STAPHYLOCOCCUS A 3+ Staphy lococcus (test code = 1095) AUREUS aureus Ciprofloxacin (test R code = 7) Clindamycin (test R code = 10) Daptomycin (test code S = 59) Erythromycin (test R code = 4) Gentamicin (test code S = 18) Levofloxacin (test R code = 22) Linezolid (test code S = 40) Moxifloxacin (test S code = 36) Nitrofurantoin (test S code = 23) Oxacillin (test code S = 14) Rifampin (test code = S 43) Tetracycline (test R code = 2) Tigecycline (test S code = 133) Trimethoprim + S Sulfamethoxazole (test code = 47) Vancomycin (test code S = 13) CULTURE (BEAKER) COAGULASE NEGATIVE A 2+ Co agulase (test code = 1095) STAPHYLOCOCCUS negativ e Staphylococcus Ciprofloxacin (test S code = 7) Clindamycin (test R code = 10) Erythromycin (test R code = 4) Gentamicin (test code S = 18) Levofloxacin (test S code = 22) Linezolid (test code S = 40) Moxifloxacin (test S code = 36) Nitrofurantoin (test S code = 23) Oxacillin (test code S = 14) Rifampin (test code = S 43) Tetracycline (test R code = 2) Tigecycline (test S code = 133) Trimethoprim + R Sulfamethoxazole (test code = 47) Vancomycin (test code S = 13) GRAM STAIN RESULT No White blood (BEAKER) (test code = cells seen 1123) GRAM STAIN RESULT No organisms seen (BEAKER) (test code = 845105) SURGICALLY OBTAINED CULTURE + GRAM [id number] 14:58:00 Test Item Value Reference Interpretation Comments Range CULTURE (BEAKER) STAPHYLOCOCCUS A 1+ Staphy lococcus (test code = 1095) AUREUS aureus Ciprofloxacin (test R code = 7) Clindamycin (test R code = 10) Daptomycin (test code S = 59) Erythromycin (test R code = 4) Gentamicin (test code S = 18) Levofloxacin (test R code = 22) Linezolid (test code S = 40) Moxifloxacin (test S code = 36) Nitrofurantoin (test S code = 23) Oxacillin (test code S = 14) Rifampin (test code = S 43) Tetracycline (test R code = 2) Tigecycline (test S code = 133) Trimethoprim + S Sulfamethoxazole (test code = 47) Vancomycin (test code S = 13) CULTURE (BEAKER) COAGULASE NEGATIVE A 1+ Co agulase (test code = 1095) STAPHYLOCOCCUS negativ e Staphylococcus Ciprofloxacin (test S code = 7) Clindamycin (test R code = 10) Erythromycin (test R code = 4) Gentamicin (test code S = 18) Levofloxacin (test S code = 22) Linezolid (test code S = 40) Moxifloxacin (test S code = 36) Nitrofurantoin (test S code = 23) Oxacillin (test code S = 14) Rifampin (test code = S 43) Tetracycline (test R code = 2) Tigecycline (test S code = 133) Trimethoprim + S Sulfamethoxazole (test code = 47) Vancomycin (test code S = 13) GRAM STAIN RESULT No White blood (BEAKER) (test code = cells seen 1123) GRAM STAIN RESULT No organisms seen (BEAKER) (test code = 193376) Tissue [id number] 09:25:00 Test Item Value Reference Range Interpretation Comments Case Report (test code Surgical Pathology = 104) Report Case: [id number] Authorizing Provider: Laura Nguyen MD Collected: 09/26/2020 07:56 AM Ordering Location: [address] Med/Surg Received: 09/26/2020 08:55 AM Pathologist: Hilda Mack MD Specimens: A) - Soft Tissue, Debridement, LEFT FOOT BONE CLEAN MARGIN. B) - Bone, LEFT FOOT 5TH METATARSAL HEAD. DIAGNOSIS (test code = [id number] 3220) FuZzEwMzNcZnRuYmpcdWMx IHtccnRmMVxlcGljOTIwMl kldrLxQMKaqXWmL6Jghvyf MGshIN3eQF6kiBsxuRRvaW VcCTQmLfKmv2jou637jYWp u0fsEWYFffieoXm3jKyuA9 9vk5H7LwhzS48fkVErIAaw bGFpblxmczIwIEEuIEJPTk HkWWzTOuNuBe0RHLKUSRPZ LsCKQVLQPS3fWTDOJ3JLVQ iujRUlMOQjVW3gQt3LUFGH YoRfVobAUp2SX83OPIILQM UIHRXPV9LFNKlqUvWJWOAY ZxWzQf6HYWRSRNQMKY7LER VPTVlFTElUSVNccGFyXHBh crLVAyOOF12LJJVSUJNXZE FUV3EwYZWYDE0VDOYLRFWX DCrvSYFYXFikQI5ZOBIANK fUVsulkFEaVQPcGH2bHCAF HRGsSV6MMDIMZx3WHCJeX4 UWEJ5KHBPVTBVCPwGwyFSu tAqeyiAtADyyn3UxAFioPW EuXF9qhYhtIPKmHE0dBGIo G5tgyE2gsow0SnDtJVRpLl Q5YGIdhvW9Leo6TDSjTSch b0wfi1SzOIHvZTg0qGiyOo JtBFIvq2afqgWgRlRrWMVa CNIxPXPkhVZqI996l0gmb5 tryeCvyIG8VBHrTOO4NJtf bkNrncF7ETdaqMHmVmR3ZX tccmVkMFxncmVlbjBcYmx1 OKWqI039FXJ7eExzn6mpEF V0RKHbCAKtFnCmDx9gjYBt H753UIRoMHIMGGWybIn2ZP UzrvGjhtSpvBLRc824E169 s9rzZCXiumKwpPfVmuknv4 guF070KWYnlXCjepOeUdCe UMQzsGMrtZO1XYZiDD4yay lgUGptRJcsBDKtxsE2GQTx wHRkD6TdJAWhFP3eanqbKD Y3LEctMSObTQR4YxVzCISb r4Hbusn2QeKlgl2ehh89UY J9d3IvaVxjXHH0PZI1McGe Vb0ktVCnOWDxOG5eEcQtqI OpFQCxmj52uYjgLQtjCSU9 JYLvvpSzz8Ycd5ekQjNpdf QuT7mdE2OwTODrTZYlAYNf RqFlpvNtc7Ctf3WcxCHipH n6s5orIDCnVIEraQcyi0eq AQW9MWXxbJCsZ1dkkI5tQV ZlAG6uusemn2evBDhuLMno DNYwwKU5lfP2TEWfoNCgY5 ZspZ3qOSNrHArjVPQjdpd5 KhReVh8zbJJffTvaZDsaYo twYWdlXHBnbmNvbnRccGdu ZGVjXHBsYWluXHBsYWluXG YwXGZzMjRccWxcbGFuZzEw MzNcaGljaFxmMVxkYmNoXG MpVWcwX9tkUcStGtClPkm0 IDTjbCFcBRBiDwe5TSVhrJ LlKFCJxUpbrF1yHPVzzIef oR9tdTF4GNRhgcJctNPLmL 9jJPQUqG0bCpDlAHVeTfF2 LTcxNjNccGFyfX0= CPT Code(s) (test code g1wspAAsVXVxmEB3JyWeLZ = 3357) Sse0bmv5WikHOpsKSmTGvi qSKbnwWqed21dDE7wO85WY 7uBMClRsW9TGOvkqL3Hqf2 DWSjFSKekGHyE012y1hgg7 bedcXcuFR9mMwfNDIbZRIm YWluXGZzMjAgODgzMDUgWD EtMVa8FbHbLZxeMYAqcp0= CLINICAL HISTORY (test k3xtlLEhBWOemVR3PlUuUR code = 3356) Bmx4jgh7BtzIKdwTGgBAdx jMIcpqYnly01dVC7rH28UH 2yPMFbOpJ7FZBuwqU1Emk3 LUWcTNGeaIQvK977f8xom6 yhtqLedRO3fLsrVLJdOWQj VBliSTChXyPjNPyxBaL7yV AgvEogRKRgv0MxfFUvsGXf h167AGZou71hxOY5YOWdl7 o7yIGpeWHoSSPzjrNmCImk dFV3suLbqKEijZ9deD7aSM YpnVehZeTur60waKWpd85c CFMce7FaI7cloAGzXLWhbv Pia1EhHk0cuDeciU2bgIXa tCWkCWGluQmhVZHrb1HkD3 UgXHBhcn0= SPECIMEN SOURCE (test z9yjcJWyUGZxgLS0YuLlSR code = 3377) Ygf4qlk1WgcEXcbDJbTWhc ySUglqSiti70tIA2kR29RT 6rLLDlSlH0TEBjylC2Yrc3 HXPaUSMjmIPrW280j3caa9 ukjrTkhFQ0mRauEETkRLGk GHhcZJGdFiLkIW8oH15taV U9fLDzdKSyXOJiIkCbBBLg YO62YzSPLuHHe83nEFirJY J9 GROSS DESCRIPTION (test h5xteLOhKSTcsDP1NaNjTN code = 3366) Zyj7vim8JevKNqnLJqPEqb mZCrbqJjgk00eCP5sZ22ZG 9aNYLxHnY9GXOvqoP3Jtz0 LMRhOLZcvVLxV211c4grf3 lnrrNywNB0iSaaBNGuHFTn EZtmBNKbBrFeTL9gLOxcYV LpQPRljGZeFWipAOAfJ5Wf erLqAEokIYDaU65tjMNzhg JbDSyxvTfkDn3yqGHjrS3x fRGtQEnyTMA0tAFwYCR1tt YfAGUmOC11NHzkJG49eBXn SBLfAQPtNFRka37tyGL3vH UrxHLiCHAbHlKoIDXjVV52 Sd3iYOGyD22az5aeiPCyb0 HwDTMdZXitDX37CRqhZG9g ENQsEPFcUSsbAQ44JG2jIR Lclg12xFu3MEJ4pNZhtSEz d8zoX4ejkLWhAy5kPPwenK TtfYNrGjYFmKAtaQH1KGQp pJ9nTOLdSRQ5FPScdLswcH AtAZSmNLjlsNRvI7Z2aD4s MjFwYLHgaihyAMGyGv0nGM hlIHNwZWNpbWVuIGlzIHJl U5JnnpMsJAijKYSeF67pbP LflkFrUJzvqFypRx2hlFVn qF5ptIWtGAdqVOK2uQHmAN T4hfDvBRRtXT77JLfdLS29 rRBkAGVzNCPzYWWwLd2xAL XcUVh6QCQjirDiu4SgTR3x DPGbES30PNvoZKU1VRKrJ2 9xTgYpP38sjvGnj3GkXs8b APA8pSOoBHSceIwppFjigk UxCWU0qKelX6KaRWIpo3Dc ECCeI1Ren73vMMMwthUcv7 ExoPy7qOPfVUosVWNjVZDf oCJjTCJeL9XkO2lavVEseR stps1iCDGiB2LeWNJbdo0= MICROSCOPIC DESCRIPTION n2mytMUiNLVcnRW9VfEiKU (test code = 3371) Vum2ghm1PqqOPjwHQwYVco lPDauwLjqa58cRA4sF68MK 4cUCXpCbP2YQXbbiB1Bea4 PWVjLKAqcZLlF188y0orc4 pwjcDhkYF3oYqlDCQdPKKy MApvWBKuMaPgKT9CJzWKCC Klu1GdKBOkIZwuGGZ4 Gross assessment was [facility] performed at (test code [facility], Department = 2777) of Pathology, [address] [place] [address], Technical component was [facility] performed at ([facility], = 2778) Department of Pathology, [address] [place] [address], [address] [facility] was performed at ([facility], Department code = 2779) of Pathology, [address] [place] [address], [facility] [id number] 09:25:00 Test Item Value Reference Range Interpretation Comments Case Report (test code Surgical Pathology = 104) Report Case: [id number] Authorizing Provider: Laura Nguyen MD Collected: 09/26/2020 07:56 AM Ordering Location: [address] Med/Surg Received: 09/26/2020 08:55 AM Pathologist: Hilda Mack MD Specimens: A) - Soft Tissue, Debridement, LEFT FOOT BONE CLEAN MARGIN. B) - Bone, LEFT FOOT 5TH METATARSAL HEAD. DIAGNOSIS (test code = j4pnbIRjFKSmf9vqWDVmvW 3220) FuZzEwMzNcZnRuYmpcdWMx IHtccnRmMVxlcGljOTIwMl gftnOfJDOvxEObI2Kaoxid XRkyCM7lHP9hzRyykROelH PqQYKfMcRuj1nar232zSOo u8yrWDGLxorhmSv2sNgyI5 2iy2W0NkvxU59frSYzINxh bGFpblxmczIwIEEuIEJPTk JiMOiRPvVpTd3PJYLQGGNI SoJSNQCFQO2bTAZIX7FUAO nwqRAoZPLxSW5xTl9XVRXS SfGlNmyLXu4MP23QMSSIBZ KZHDEXA7IRZHfoObSBCSHW SrHoXt4HZIDBCWPNWO1CPV VPTVlFTElUSVNccGFyXHBh pkHPWpBXM48ERQGDKEHHAF NTI3NtIDSRVI2MZDDEMOHA UWhkRZGECBwhXC7MHBVKIO bXLukvwYGtFSPkVR8zRGSJ TOUuII8MBONRQw6CZUNiN9 QNGN5CZOAGUUEJQrQjlVNc kTmotkFnHMyxo4MeJFjtXN CvEP6zwOfjJMRiOE3gQARm B6lbzG8dvdu7BmAaUCJyBy M0MWPtqoJ0Rec4BBJyNYql w2bem1RaAAIjGQm8lWeoCm TnXAUiy9bzseJiXcNoXJWs ZTXfKWHzrXQtH491s7roa4 ckfoCpeBY4YSJaPCN2HQmh jvUshbM2QIbtwRZqYnH0TA tccmVkMFxncmVlbjBcYmx1 BFArR374CPK8mGgrj5egLL M5MRPcUAAbCvWkBw6fbUSc C993TTXxFDLYKDWogQn4FE DgubLfmxObvDAYm613N610 u8gjSSPcyoDzzQfOqmogy7 shV063NCOduDLetbDrLqQh MURzwXLgpHF6KVWkPY2mwf kiRXqrLLuqRYYrgzE2GUJc xWRwC9ScDDKjGV5wvfrgSH C8AVovPGRlHZZ9FlIjBWLt o0Ewfpy2UpWrii7lyu47SN T7v9AdvAstPNW9YBS2BcJq Pe7qgEEwZFHiLL4eVwCbuA BfBJPbpa61vItbYDhlTUD7 IGRqwrOwo3Ojx9nlKwTwwg MmW9vpV0WaXTKdVZRgNPZf QpYoqeMei2Zrw8FffEEjlK d4b5ovZATmXALshJvyl3fh EJN8ACVmeIOjH6irsR9aWF OlMP3kfbyyw1ykVTanXLgz ZRTqwSV7mjA1KBGgfMPzZ0 UmyP8mLYRfIRrwJMOfcou8 NgBjSm0ouPZccIcwABlsSk twYWdlXHBnbmNvbnRccGdu ZGVjXHBsYWluXHBsYWluXG YwXGZzMjRccWxcbGFuZzEw MzNcaGljaFxmMVxkYmNoXG XsYUmkE3fpMsTiNhHyQjy3 YFIdsYWaFHEvQps9WWLerR NoVHRRsAfitV9bYBYrjJbc xE1tiHE7KFKqzwMexELLnI 8hESPYnM1zOzNyROMhRkH9 LTcxNjNccGFyfX0= CPT Code(s) (test code f4cneRSdLRLxyDI8BeDyII = 3357) Ear9dsm7UqfJIitYEnXFbh cEGahcLpmf24hVR0eV56SH 4qUUDiQuU0EHIzxnG5Hfm0 IHPbXHQwiFSwR883g2nzg0 owrtLnqJJ8sGhbAKUvGXQp YWluXGZzMjAgODgzMDUgWD OmYAn4IqOkRFkuWRHxit2= CLINICAL HISTORY (test n4ykrVNpSNEsqMI6LeKkSN code = 3356) Ncu1drv3MmwJWdtEGjDGgt cHHxuuAhbj42lKN1cC03CS 5bWWLvClU0MTRxarV7Elw7 OTGpWOBtoWPzM164k5rmv3 esarErlNL3cFbtLQIkXTRq VQmgKNUjUoNgWUzaVjJ5bV BeeMwwGVLww3MjeCUtrERw g340ATBre04hbKP4XZYly4 s7bQHvnMPzLWRlyvYiLOzs tJG0gzMhrSCglL7hpX2jQP JiuXttWzGmc66uaORdu42z IBGun3EmD2zstTBdBQZqpo Zuc4PsVv3enIzbwM0jlMVn bRJfTFFurKlsAROes2TgR0 UgXHBhcn0= SPECIMEN SOURCE (test u0ijmEUyEIPkaAP0OqBfWQ code = 3377) Osr4afa6FurKIivPXfCKrt mUHhwnBgat35gQH7jL16MN 1qKQInAoY1YNMqogY8Ejj4 IVLqYNOauUVxJ727g7wxr7 ncurCxxUG6bBvuXHPlPAXy LUrfSPLdCbShTX7aK97laZ Y3xOSmmKXcXVUoDmCdDBXz UW74WbKYZsJHw58wDYuuLQ J9 GROSS DESCRIPTION (test l0amoZQeKIIxfAQ9RaUoCV code = 3366) Rpb0wcd7FcbHKftIAfTEhg fIAwyhHasc76mXS5cD00QA 2nQTDsBoP0KIYeozK4Dsj2 IFFzVBRimSTfW202c9mxj9 hakdFxrKV1mUvgIXLiQDYv QNsiQVRnKbOaBZ2zZIrmHN FeLJTysHFmYNloSWNfS7Js vuIqQDzbXWPtZ39psEAbky UlEXqaeEqpJe0rwTFrdI9q zNYbXGgvJXC9oXHmCZA6wt WzXDKcNK55LKjaKP15cHXb MXEvJNDnYVYpf37prLH3yC JvcFAcMSBmVqBsZBOpKC15 Cq3yKEXoC17ul2qnkRYss2 DrGXNgDZitNK82KShzLA7c TMNeVCZwRJqzER73XU6uRI Fnhw19vMu9PZU7uEGugGAn y3gdG8rrkEOhRw3mJMwqiF WduWJuNlEQcTXbeIO5LWJx qJ1yMEYyTIA4ZUNlaKfekI FjZNVeDMngzQKsV0B4wQ3s VuWoZJHwcwdtYCWlMj4qDK hlIHNwZWNpbWVuIGlzIHJl R9YcndTwBDklHZZxU70qhY IwjhLnHIrksJbrAi8imFHp mQ6sfJCxTQpuLOD3lICzJS D5spFgLTFjMJ01RFdiDD61 aPGxLWSgGQYsGSNyJv4xKJ SwOLk0ZIUrjxEsz7FgGN3y TGYpVS26QEsjNLB6ZWEbK5 7mDiAmD39frbNyf9FnUj9k EOC9oKSgEALwqQalnOotlc VtIUR0tRfnH0KcATXtu5Bd KXYoM1Lno05mSDSwzuFvo9 KpuPx8bPSkKSvzPMBiFWYl iNLlAOAzP2HhV6ndwLFeuE odni0vAKJwF3ItIACyni6= MICROSCOPIC DESCRIPTION a1odrRCiJTRggVJ8AyFtFT (test code = 3371) Gjn4pxc1RohDOahQMxEWug jPXyzpGkzm96uTT2hB37MS 2tIJLnBlY1PENoxmP5Aib1 PWYbMAVrmRZyJ134h5hbi9 ordyDjaTP4zItgSYScIXBh LEggAOPaBoAtMB2XOdHUSV Aao4XzKZZwSEheNRI9 Gross assessment was [facility] performed at (test code Hospital, Department = 2777) of [facility], [address] [place] [address], [place] [address], [facility] component [facility] (test code [facility], = 2778) Department of Pathology, [address] [place] [address], Professional component [facility] was performed at ([facility], Department code = 2779) of Pathology, [address] [place] [address], [place] [address], [facility]ilion[facility] [id number] 09:25:00 Test Item Value Reference Range Interpretation Comments Case Report (test code Surgical Pathology = 104) Report Case: [id number] Authorizing Provider: Laura Nguyen MD Collected: 09/26/2020 07:56 AM Ordering Location: [address] Med/Surg Received: 09/26/2020 08:55 AM Pathologist: Hilda Mack MD Specimens: A) - Soft Tissue, Debridement, LEFT FOOT BONE CLEAN MARGIN. B) - Bone, LEFT FOOT 5TH METATARSAL HEAD. DIAGNOSIS (test code = t3roxTAgNSTgk2blBQMfoA 3220) FuZzEwMzNcZnRuYmpcdWMx IHtccnRmMVxlcGljOTIwMl mbopBwRKBomWOmI9Xxekht VBewPY1nIC0blZrsyKBamC ZuQLEnEjMsi3vwz821vIRy x7xtCFRNfhbodQr9iQvcQ7 1om5G0RmbxW89jhNLxIIum bGFpblxmczIwIEEuIEJPTk HrZZqLYxUbLe8DPABJMHXR ZnCVQGARLH2aIGDQS0KSVK ghaXHlZXVfNI1zIo7QQBJW EmOcWcyXJd2PT94XJXFGOR KRKYBBN6EQTSbaQzFNBTGS OsEvKq4MJGCTPLSMSQ2CEV VPTVlFTElUSVNccGFyXHBh jvJTZxEEY51IEXSWROKULP TPZ1JzIKNSAF6HIWRBLKGZ SLwlEEMBJVbxEX0REOONJE dCVzizuMKmCXNlPS9vMVXI DEApPG3TICPDPr1VHEQkL6 JSZU8NNOIUSZOKJhNcwONp dFxvrnUoRGcaq3KvHGwuDG QeYK6phXauXQIhVC1kHRWl H4bvwE7kjfy7MxNfXZPhSi B8CZPoijP1Ksj8MASgMIdn c8zwu8VhVLQxKVj2dBecBh FbQJGar3kbykGlSfCbSAEi PIBqUHHlwTUwE073v6swo1 ajweXnbIQ3KDLlAEY4NTuu maOskmM4SVamkRCfKdM7JU tccmVkMFxncmVlbjBcYmx1 ZRBcG617ENZ7mTapf3kqMT E4JLHnVDZnWiDnZi4txFQc M474WFYkVLLEDAKdjJv8DK CuaaVpzeXmzEKYb787I073 n7lbXYJgrrCseAwTtpbgu0 ysR967MWGabFDoauIhBfWc XMRrdBBakIB6XYUaDD0yym kkEZftYSwvNMWgnaP9LNIu qHAlZ1RtTHQqFR0gvtbmPX S5KFmrMJNfXUD3KfHlTTTr p6Hpvfp6KiHjvc3svl34MI M1p7JakUuqWQN9IBJ6PqOt Qf3cuMVmGWHiPP3lGzOgcZ FbNTJqow03pBpqJQvjFKC8 OCVxoxXos0Gra3okOaVehx DcA8riW0DmYGBlNERrBUNq FuRfohHni0Pnl7OrvZWkuS u5w0jqUIQrXVEkrLtxz1mg UNK7UDEqaGHiU6eevX8hQV HiAT0bynaxg8tqVKmqEOst TITymCT6osH1SBVgxREbD7 UpuH3tPLApCWxpLAVurkf0 BnKqJy1ynXPlhUaiVRpzFm twYWdlXHBnbmNvbnRccGdu ZGVjXHBsYWluXHBsYWluXG YwXGZzMjRccWxcbGFuZzEw MzNcaGljaFxmMVxkYmNoXG QaSGawA9dlRrZtRdUiJil4 EUQgiVHsPBLmRcc2EFBjgW TkEPKGeMfdtY5rPPStzIwk dZ5ffHG8OXCuraXdxVEKkA 4kQIEFfR5bXaGfNVWdBxG5 LTcxNjNccGFyfX0= CPT Code(s) (test code u2corDVgOLNdkTJ8WtGtRX = 3357) Cbt9deh7MfkKPfvOYfHVxs eRUussNtyb86jTS3mC79GF 0lIVFuQhT4ENXqsrC0Wxq6 FWZzZEHbzMMiW834e0kpp9 eoeeBltTU1pSvzGKTaBNHh YWluXGZzMjAgODgzMDUgWD ToBRy3KtWdTKbxYDYmyk5= CLINICAL HISTORY (test g0izoIRkYQLdtGC6EhQwUH code = 3356) Oit9rwc6TbyGRzyJJtTFbg rAQwdvVoac35zHA2kW52CD 9aOSRlBlR4JVSytcL4Mdq1 AEJzYPNhxGWfV625h0hvo7 mxafXbzFN5gRfuNIPtCORb XMesMULdUqDnTQkrLyY9vX UbaUcxZDSud8LavGYfaFFv o363QJXza33qoIC9EZTmn7 v1wTWjnTLnFHHyhrHdIAta uPP0umCklMRmvS7ttF1jWN UzuYgzEdRqk00piVPdy79o CARaq7SeS6dopLJuRNTldb Qnt4LxVb4zkWdazP6bvLAj kXQlIXXhmUmkVHUcc4UnF9 UgXHBhcn0= SPECIMEN SOURCE (test c8svkQRqVDLafWD2KkYtTV code = 3377) Zyu3sfi4OxpMTkkACfYCve tUSyvcClwv44pZK3xL39IR 3pTUDfXvP5GXDugfZ4Esy0 NPFzRHQkhBPdV561m0dmf4 mgbjUtqRW8qEprCVTcKUVn LHjsHZHhHvSzVH3cP41vrS L6iEHybBUvEWOsTtXzUZKr OG56UcDRSbUKr49uULopIV J9 GROSS DESCRIPTION (test u0ofnDNnJNTebNU4IrYvJG code = 3366) Irn4qbq6MnkJIwnSCkABye vRSaprEgwv24nBK9fA28OZ 4lWWJxQoJ7TRPntdO8Rxp4 PQWhVLYxtVJgB874a5znn3 repzNciUS0dGcfRWGtRSTh EGwrMIXuViVkGY5nUWgbMK PcDKKkpSAsJXhwBKXdY5Va nzEoMKsrMIExF61clFKeey OyAGvkcPccWe2jfIYodC9w kERqIVwaXSL4uRSlNGA6ua BlZLJkUW96SQrpLR89yHHp FESrGHTzUHTpz05jsKS8pA LasDMgIAEjBiQzICIyUA76 Ha2mSARbY77gv2gsbYKep6 RjZVCySIrnNZ29DWnbQC2d MFTnDPSwWRexFQ82QN2rJQ Kxgl57uQm7XVC4tOEuvKCq t4puA5phqGNlMt9qSHjudK GapSZqQxCSzFMbcSD9ERUg pJ4nACZrKLX7BFEwpYmgdZ UiPAJaVXzxcOKbB4X8fN0b BgLjIGEbdpbyRLLxCy0rAC hlIHNwZWNpbWVuIGlzIHJl V6EeysGnHXhsOIMaZ97ipJ TpraRwNGykeRfqGf3ivFEw dJ4iiUHiSTnsPEU6qLNwVQ T8cdBrHJPxFE94TXfjKF65 ePJfRHTwQXOnUJOtNu5nQN GnBFt9ZFRbizUen7WlHI6z NDWbBT54WBzyHFZ9VORwY1 6xAzLbV74aiqTku0OlXm8d MBA9tWSsSSYpePrfjRauyy ExKMQ8ePdxZ2KbPJEcv1Bn DXItF9Xtw24fEFGwanIke2 QgiTl7eLWcZXhsEIQgYAQi sPWaAZLhU6OcD4twrYUiaX nsoo4cWAWzM8TkWJKlzx8= MICROSCOPIC DESCRIPTION v8imqRFgVRIsdLA6BmJeBQ (test code = 3371) Jtc1psq8HdzSBieZRzZCfq yQOpgtKfpd82jEY5qX24KE 6sMIIjIbJ8INBojaM8Uwc8 YYCkTYKgaSOtA356l0jhv8 pzffXzfMB8eKeyNUTcISDi SOkiAMEoIqXhOC1ICaYWKV Lix7FjQFFkMEaeHSE1 Gross assessment was [facility] performed at (test [facility], Department = 2777) of Pathology, [address] [place] [address], Technical component was [facility] performed at ([facility], = 2778) Department of Pathology, [address] [place] [address], Professional component [facility] was performed at ([facility], Department code = 2779) of Pathology, [address] [place] [address], [facility] [id number] 09:25:00 Test Item Value Reference Range Interpretation Comments Case Report (test code Surgical Pathology = 104) Report Case: [id number] Authorizing Provider: Laura Nguyen MD Collected: 09/26/2020 07:56 AM Ordering Location: [address] Med/Surg Received: 09/26/2020 08:55 AM Pathologist: Hilda Mack MD Specimens: A) - Soft Tissue, Debridement, LEFT FOOT BONE CLEAN MARGIN. B) - Bone, LEFT FOOT 5TH METATARSAL HEAD. DIAGNOSIS (test code = u9ogxMZnCIHhv1xkECMqcP 3220) FuZzEwMzNcZnRuYmpcdWMx IHtccnRmMVxlcGljOTIwMl idraCdOQMasGXoK6Elbtzw BJegUD2eKP3ugLrcbILquR SfEHNoQhTli0fzh259sLXz n7pbPDTZkoysmUn7iClkL5 2jx3E5RhimR91phRLlCBgb bGFpblxmczIwIEEuIEJPTk UqWHqUFnNqXf4SIRQQNTZM SwTKPVHHFE8mKWOYI5JKTT dfmYXvMRNvYI0rLb2DDXUI RgAeBtjUCw5FX25QEKTYPD EIKRYKG3LFAXrnBnFATWCZ JkDfKa1PHBWENBTZUS8WLW VPTVlFTElUSVNccGFyXHBh tnDBWkZAH98XPVOKXGKBJM HPW6EsJLEAUO7PFXGQKRGN ONbtFVQFMVazKO7ZWCDIHK wNMjgucLEsHUFkGQ6hXOWP CHFpGT7EGYNAHf2ULWXtN2 KCNL0ONJPGVKCNXjXrhBXg mAcwowCqAZpbo9SgWMuzXZ ClHZ0apTfxTAZfOE9uJJHz U9ojlK5henn7HwYuWODsTe D0ITYsniU3Rjp6PVKrJHcz i2xey3PyRNFwNWj3wYvoSg KaAEJra2ojofNzIsHxXJKc ZDAjMIYawTIaU765e7ucd2 hyjjPkbYK2APMsVPE8RHfs ceErjgD4GRkiyOGjQpC0WV tccmVkMFxncmVlbjBcYmx1 NKJtW766WYI6bEkex2rrRK J5RUPkYZIaBsRrLp1vnPFn P386VEZmYKNIMWXijZe2DY BsmcRnnvZepZLFf066Z654 w0hjYNIiyaSljBzElryiz8 ubV418MVKvvWUpgcJxOiZm PMLhwXVixLS2ZDKlIV5rct dxYUjgRPjlUYSndtB9PIOz dWKgB7DlXFEfSK5psudaZO O9CZcsQIUqDTA7PsYnKZDw l0Grbqf4FbLnqw2inw47IJ F9j6HfjChmYWJ7UVV3KoOa Cr5lvDPhRLAfSE8cMqCeuN XrPUJyue86pSteOFcmJCB8 ECBbbkTao0Xrk3xlAvOwxw DmB3yqE4RhRKIbGXItXMIp KrVujxOnk0Icl6QqoMXjeQ b4q7qqKVNtNRYctBdpl6or IFO9XOYytYSgE6nccN1tZW McCY9ezbxxk4dkYUjrYXxt UGKzfBS7skS8QNAhlIZfH1 XojL4sMUYaTDgfPCFbfzd0 ZhPySj7mgQBrcDzfPOqkOy twYWdlXHBnbmNvbnRccGdu ZGVjXHBsYWluXHBsYWluXG YwXGZzMjRccWxcbGFuZzEw MzNcaGljaFxmMVxkYmNoXG LrXFpaU0auTgFmCzLzHgu2 XGMilSFlYIVyWxs8FRVqmC TiASREaLllbK6yWLVckEhq aV8pcVL3TVUhujIldDXZfI 5mKMGQcP0zDrEvPNFiFhX1 LTcxNjNccGFyfX0= CPT Code(s) (test code v7niaPIiEYOjaPZ4DkBwQT = 3357) Unl1bfp3YciTVfoNPpPIqg fFEgcqGftw78kKA7jP66CL 6jYQHwUqZ4CDBatvC3Wgy1 OSTcUEWamBTlV278q3pps7 fusmEboWW7lRxkUMYtYXLo YWluXGZzMjAgODgzMDUgWD TxVKv2XyWnXGhtVUKoki3= CLINICAL HISTORY (test e0dtlDAfLAScdDN5BcGtFC code = 3356) Zen4can6SnbKTixZKyUTci sNBbldMtjw50qYK2vW45BH 5uDPXuSuZ0HXKktkK9Mrf7 JRIjZRXmuEGqS020y1crp4 zbslUzyPH4vXgsYNQqKCIp UNlfXXOmSzUrTBglNxL1wA WxrBkpAHRkn8EfxOHnjWDr x722DNEfm78qdLQ4IWGwa6 d5iBGvjBVeMABjqtWpTGer wRH3lkKceQOtoP5vdP2zDB IvcOhgObLyh74xmJSbf76u FHOva0ZtT8mblMWpMREfws Hrf9XgKs0bvBsgpB5xmKHn tNLpAVJidWqvOLDty6PwJ9 UgXHBhcn0= SPECIMEN SOURCE (test a3llvYDlYBFieSR2NcMaZZ code = 3377) Gqx1wlx9XcfAHqjJTvNOzd sSYaxnWlna11yDW1eS63FX 2vQMUlCtF7FPPrrpP4Kee6 VQLlBWGrvMRdW409c3noo4 yfdzTccJO0nOtuWXDrYPAm RHfpVWQrMqHpOB3hA22vyP C8rKXfyNVtFHXmPtVwURMt FI94PvHJHjGLz42jQVglDZ J9 GROSS DESCRIPTION (test a0rvmZMrEZFldOW1ZbNhEU code = 3366) Leh2sca6JyuRFidALzVUyg qFPxetPilb65gXK5oR57OK 3oXUDdUqX9RVMgahK7Bbq4 NLEtPUVhoHTrF345m3zqz7 ukheJuxBS4pSaoREUrIBDd CNdbKDJyYkWoLF3bUNemOS SuNDGthDDoRRvsDRApE4Pf qyZdKJtpCUGoO76oqXPnin TuXCsnnRcpRs8upBHcfK8l mDSePBmxVHH1iQYsLWA6qu OaXKTzGM13GQalZE85vRNi YAIhECTlFOJws71ysGU0rL JlrAZmKFHjBhJrDTOfNW89 Xu8sHQMyF69dd7rpoPQtv4 CsTPEwSBxeFX74UPpuQL9g BZSoSIMwCCcvWN33GL5rKT Vsko68iPn0NGN9nJSwhHMe k3fuR4zftEVwTs1kLEpsuH ZzgCPxTzBFzJCbuDZ8WUCw xW5aSCElITQ6WHBzzUoicO AvPVVlNGcukXPjI2I1wZ4x RoUwSLGuaitiGMDiLr0iUC hlIHNwZWNpbWVuIGlzIHJl A2MzudTmZEgkMUKdP80rtZ ClksAvVDhwzXdvJw8xhJSp lY0pmOEpNMfaHAA4gKSiQA R5aoCdCLKfBG50YNpwRK98 oQSdXYKhPRQmRITrBf5xJH AwYUx1MPCyxdDnl7IgIU1k WDWpES94WAucAFL6XSHgT9 2mYqHhO70qpmTsw0BtQc8w MVO6dGRpLDOqkMaojTmggk MdTWG7bWexD4VzASXfe1Lg EINrX7Zxo90hGWElwpVot4 XwtKj8lHUzHSdbBMDgZRWa xVMsNHPhN4PeO6obrQUyhZ fypi5rHFKmX8SbWAHpac6= MICROSCOPIC DESCRIPTION a3srnGHaIMAkrFA7UoFvKE (test code = 3371) Kjo7npi5KauFVmkCEkBAiu qGAubfEwfa09nFV8lH68ZO 9sNLKbJkA2GTLabzV2Pxk7 SIJuXTZuxBJqM574w9pqa8 kgfpDvyXB1eTiqAYMzKLUj FRcdERHkOwEfFG5PThCUMA Far8AoMGPpWTwiHTU1 Gross assessment was [facility] performed at (test code [facility], Department = 2777) of Pathology, [address] [place] [address], Technical component was [facility] performed at (test code [facility], = 2778) Department of Pathology, [address] [place] [address], [address] [facility] was performed at ([facility], Department code = 2779) of Pathology, [address] [place] [address], [facility] [id number] 09:25:00 Test Item Value Reference Range Interpretation Comments Case Report (test code Surgical Pathology = 104) Report Case: [id number] Authorizing Provider: Laura Nguyen MD Collected: 09/26/2020 07:56 AM Ordering Location: [address] Med/Surg Received: 09/26/2020 08:55 AM Pathologist: Hilda Mack MD Specimens: A) - Soft Tissue, Debridement, LEFT FOOT BONE CLEAN MARGIN. B) - Bone, LEFT FOOT 5TH METATARSAL HEAD. DIAGNOSIS (test code = [id number] 3220) FuZzEwMzNcZnRuYmpcdWMx IHtccnRmMVxlcGljOTIwMl kqbhDvAATuiAGgM1Jqsukw LRjzAU7hWA8kvGqclGVhiF WrQCBhBiCyu0fbv211lHVt v3qrLFROdfabjXk4qWtsS3 1rc0S6DxxmZ34wnJHbAMoo bGFpblxmczIwIEEuIEJPTk BwIGfTRxIdBt8WCNBIQZBM MaQJDGBBGV3qSYIIJ9OVIN zjbBApOFBxJN0yFu4KBRXD UrVlOjwDAi0PS36GFNWRPN KWTMIFZ4ZVQMqyFcONSIAQ MpHiQl3BOJGIFKHFVR4JXA VPTVlFTElUSVNccGFyXHBh vjWFGdNRU93KTSUBWSUZIF KYB7OhFMPLSE3QJUSNXIPG SLwvPGPMVLwhCS6MDNWURR lBUrscwYHbUWRmOT1uGCRJ WKIeHN4TXGWUOf5AJIPhR2 RXGP6LEOOAPHUZTyRqlQQg rCumvdCeCNtle0GePHtfEK DrLO1lkTsqBNVcMC5bKQVx U4rvyV8ouwu3BxCvIVZoAe B7NSQymxW9Amx6AKHyHJxk p3qpa5ZuJABcKDk3oNpjQx TyIAQyx9aikpUpHdWmINQi GEVuOMAdaKKrF351u1onh4 pvgmRshYF5WRWlEJL5DGwz dmHbmfZ5CJgyoPLlBkX0XH tccmVkMFxncmVlbjBcYmx1 SHDaQ738OKH3qWzcz0kpUG B7MTPlZZBgEwSgDg9ucFHx Z459UYQsKIXHBSRgvSh3UB BbcnInykVipEUOt587Y345 k5veKTBnpzUxoNoXbyggw2 ruW878ZCCxdZImdjRsSnOz TMOrxLIyjWU7SFPyDN2pre ldEXdcOZhvJEWemdJ2VZPo qQLxU9SaZUMxVP8fvtupLB F8LOtnAATyZFG9OdDvCGTu x0Lomrq6GyJwrh6unb03BN I8q9OmrMviGCQ2IWZ1ScEy Fj6niNAsWOAbPZ7yAnRauS EcWIEuos27xIrkQKchVRO8 AYMhomEku6Som1trFeLpqo JsJ6gxC1SkJLPgBDWhVUJn AjBhvsJij2Oyv4RwhEIkmB t4g5owVYKoFMTdiEpbp1im RHR7OIBdkQJeS9tmeI1tSN ImZR3bjatgx2sdARlyEHqk HXUdbTZ7exU2CHNsrFMiW6 PmrP9iCFCcOAsjCMIunex7 RsAdZu7ooPVmjSifHEggGx twYWdlXHBnbmNvbnRccGdu ZGVjXHBsYWluXHBsYWluXG YwXGZzMjRccWxcbGFuZzEw MzNcaGljaFxmMVxkYmNoXG WcQQfqI3dtZpUeKcUjNvq9 UMFalWQwNNVaZxi2CLFvrI VzCRBCaEughF6cRYQnsRdh uD7tsPS6CRDmdaDcxBXFhX 6fRIRZnF8nNaMgPRBpHxR8 LTcxNjNccGFyfX0= CPT Code(s) (test code x3kpxSPaNBRssVM6HoTnFZ = 3357) Uia4xrx1BmpBKrcWMnLUzp sWEznaTrix89xXJ8rV68HP 8nBYHpUtG4GOXhypR3Cmj2 RQDcKOIhfCTnL348s6jdz2 jexyIjnQZ0oWgiXHVaIDVh YWluXGZzMjAgODgzMDUgWD RqOQw2QiThWJzwMDBfbu4= CLINICAL HISTORY (test i9eatBBiPLTykZX9ThHtPO code = 3356) Pxa6gdi4BswLOjeWWzVDdb aAHsvrRflu47jMT2nE84FT 9gBMRpLkQ4DVDzdjB8Nsk2 CZUvNLJsqTIcQ332l0xgp8 mgdhLhiYJ2zQwmCUKwUNNe FGhdJZGvAtMpQVdwBwU9bY AjkKxxGMQkb2EpyPPgeFUo a032ICAuh91eaLK0YKZgo0 x9fZGbgKBfGATyhbKmQUox vMF8slQnsWBihZ7cnY2pGR SdqGxrDgMxg05baRXjw40c YSOrv5LkW6vnmUYaEKIovr Ofx0YjGs2dsDswwN8igVVd gDMtBEEluAelRNRxf3NvM7 UgXHBhcn0= SPECIMEN SOURCE (test u4phhAYvFAImjUT9ZmVdGH code = 3377) Ipq1ugp3QfkZWxkCGeHAzi ePRoobCvje49tYP8qJ79UE 5lTDJjCaQ2KJVjhbB4Nas7 BYFrRQXznJXuY056z1azz5 gamgKqxLO5cXjgGRIrNCQv HYkaYSBuLlEzUT7dJ38jgL J1vIGotPMwUWWiJzXtBZAy QQ33YeNLIqUEb53aSLvvXD J9 GROSS DESCRIPTION (test r0zhwRPjGQWspEU2VzLlMM code = 3366) Kvz4uua2VvrSVmyWDoBLcd bMVvknFnun29kTG1lY01LL 3xLXNcZpT1FHHglpL4Qez5 DWNkJHMwbRAsU841w6nup5 wnyuPnsNA3dScaAGIoMQXq PQuaMIYfIfQuCS0tFDtzTI MgKDTafKEpLZllMRFpF7Te ufQdZCgzSUEyO84mtMEiki KnJYulySjmWl7ubSIlfD0h cGOlKLcgTJK8iQKwGTX5ez HiOEGrYN66BGvjZI45tPAw EPVeCAScDALaa41muLW9aL DeoHTnFTAaUxQmGHPuEZ75 Pa9sSHWkM94gu6ecvCKnz5 UxOCOpNCmrKQ44JCmnBM8m CGPwGEZoLYdcYG67SJ2jDN Axpp05rMi0PPM4mSNclQWu d3hmH9baxBEfXv2sHMhtqW KlrAFwEkABaQUufZO9RPSn sA9iYCOdKWS8TVYsmSdidM IwOEGsVPlgqXAzA7B5uZ5g XlIaPCMiemkgYOOrQu7cWT hlIHNwZWNpbWVuIGlzIHJl R8HpfhZqRMpiKWNlZ36qtR KwpbIwQSaetMyvPm9qkWJs uO3yyOJcKOfkRQS3bQPmGG A4ugWaJYFsPS60GMzzZM33 dUVlYAXsZOReBPLsQm5sFQ VfNOx4KFEsjnFwp2ZqJD9z RTEoEF32ZPmgCFV9XIBnW3 9fNrWzY33igyKec4TcTb4o RSI0fUBwTKUmhBvlxOxlat DtTZR6gUzwM0McIWQto1Pz UEAyP2Aab43vXJGlrrMgl1 WnrZw4mBKqBLzuGOCgQCPy yAAgRBGoR3UiK6xuhPRdvU zmmf8oDDNmH2ImMFEzqm9= MICROSCOPIC DESCRIPTION e3kxdPZdYQXnxDY9TcLtNP (test code = 3371) Bzo9jdw5UzcJEkjARfJSac hYCsphFvgi60dAV9qB37DW 6qJKSeEsD8FNUeurV4Rgh3 LVBmIBOgpBBsO852s2fex8 csgjSffUY6zXrwBNSjINJl BBlkRZHtUoNcEO8MXfLYIP Njz4PaIENsWKejSHM1 Gross assessment was [facility] performed at (test code Hospital, Department = 2777) of Pathology, [address] [place] [address], [facility] (test code [facility], = 2778) Department of Pathology, [address] [place] [address], Professional component [facility] was performed at (test [facility], Department code = 2779) of Pathology, [address] [place] [address], [facility] [id number] 09:25:00 Test Item Value Reference Range Interpretation Comments Case Report (test code Surgical Pathology = 104) Report Case: [id number] Authorizing Provider: Laura Nguyen MD Collected: 09/26/2020 07:56 AM Ordering Location: [address] Med/Surg Received: 09/26/2020 08:55 AM Pathologist: Hilda Mack MD Specimens: A) - Soft Tissue, Debridement, LEFT FOOT BONE CLEAN MARGIN. B) - Bone, LEFT FOOT 5TH METATARSAL HEAD. DIAGNOSIS (test code = r0jyqHLhQFZmk1fpGGLnbR 3220) FuZzEwMzNcZnRuYmpcdWMx IHtccnRmMVxlcGljOTIwMl xngyCcFMIykFMmD1Sdjatf WEghSQ8aLG6kyPozyLMfzW LxTDZlVySpx5qdy603kFOj p0pqVXVTfoctqWy7dTflE4 2uy7M4RyqnI84gcOKiAEyk bGFpblxmczIwIEEuIEJPTk QhDXyWHgXjUp6CLZBRFCOQ HzKBZIJDCV8yWVSVT5ZJLG mgdRMlYHQeDY7bBm1PUKGO BtChAcfKFn1CL30JWGPQXJ WXPQYBN9OPSMxrRaFRUQTW EaBvHt8FAIHJLEVDJH6MXI VPTVlFTElUSVNccGFyXHBh hiFWLnZXB30UWGMTBAWFLK STA7LiOGOJKV5YJWUDASWS CVxsJFAOLEtaYR3OREWRCN vBSgjavUIuQSUsIA4jFDUK GRDrWA9DVJOZTy8UQJSfL8 GHIS4WPWLVXPFIUtXnlTBl lLngkvLhEEnjd3LuSKvfVA KtJW0ysIcjONQdUE5uYTMl V9dpbH3uvtq2KjFzLYLkYf C6MQApgjL7Wph3TDMjQQcc l5xia2EnLIJkVNv4yYffVa VfSALbe7gtvtIdMyVoTXGo RIVrODPlfSArQ939o8lma9 uvgzSbpSK6GUEcUDF3EXmi qrHuyrR7GGudnVPwCkP8GR tccmVkMFxncmVlbjBcYmx1 GXMrE211HNS3nEoai1lyEA U4DQZhANVmFdQqEw3msJOt B601KKHnEUDASXDbuMo8NO AiekOpnePkdIXPr726Q334 h4yeRZUncpGsqBmReghmf4 heF939GINskLLrbgMgSrLe KZXjfVCwjTN6ONHjAD6nlx dtZPdlOPsrVNIqvtH2TTXh sWWlK0DvIROzBP2ovxxcRL H2TSbzJCIrOUZ2EjIsBSUd m7Foaip5AzMvnv0oug77WG N9j2YgdBmfIVQ5LPB7KuHk Ot0axPOoQUCvAZ1sSsKysJ GgBXFyzo29mGcaXOroIIK5 KHWcdxAzk8Tki5ikArEvwl NhH1leN0DuMKSaVFGxRFOe PzOyzpCvl5Tco2VhlVGckM f6m4rgCSGrQSUgtCgkt5gq CAU2FBXfvORlT3xpzT3pNH RmJC7vbohfj3ugZXmuJUoa VKMjyGI9wnC6JBKukMZuE8 KdvZ9wFUKyKGleVDGbxsz0 TdNzXj1jdIRvcGhbCZguTj twYWdlXHBnbmNvbnRccGdu ZGVjXHBsYWluXHBsYWluXG YwXGZzMjRccWxcbGFuZzEw MzNcaGljaFxmMVxkYmNoXG NdAEgoX4cxHaPsTkQqLvz8 JIWpkJTqKNVcQfq5DFYynL QcGHXBdDwqsY1qLMUxsRtr oC4jxTU6BCWdmmDaaJYIrG 5aHUXYtK7tSbNkRRAoYrM4 LTcxNjNccGFyfX0= CPT Code(s) (test code a6fyoTHkZJRzwGD8OzPsQI = 3357) Llq4cuj5NtgHOjnQOjEHeo nARdcvCoqo05eSW2tI30OU 2wUTBsKsX0IGPmjsW9Tvz3 IOLuFLGmlCOrW450v8oxm5 diprXnlDJ3fAlsAGFcATHx YWluXGZzMjAgODgzMDUgWD NxGZt0QpVwXIrsXWHwby6= CLINICAL HISTORY (test v7ceaPWxKMQxlAM6LfLuWS code = 3356) Etl1hos5RbbYXxaYHjAWdj vGOnfrEeza95eYQ0rH65QS 6iPKRkOhX2WHYdwyZ7Diu5 PLCmVXJwyLXwH695d0lip8 xgiiXlzHP6iWldMGRtJZTt TDwqNTOjEsUoIAdvLnQ6sK UrjDrcHGWjr8HzwXTciSBs a069CETvc23slRH0JETco8 v4pIXazSNqACDpbbKlDCvo aRV9qzFdrTEksU5ksN6nON XujFvmBfVdb49ufWEku50h MHKph8BpC1oqiIRaCAUtmc Gam6WaRg3uqZfqyE0pxMMh mVYrRZDcmDbcALEzx8JvO5 UgXHBhcn0= SPECIMEN SOURCE (test n1psfZQuZHMvcHP5AiXcTV code = 3377) Fyi2tbt2JaqANofDJgDBwq rMLtsqOgbe09zGM0aD43BW 1oSQPiMoX8HVAqxxQ3Lhp7 AVKmHHYqhECpC997d9roo8 fncwWwqAA9jDbwTHXpLGMb WPhiEHEnFhFdBA8wQ53gsG J9eQHdkNEhQGNuGoVqJPGp LR61AhDMRzUEl46fNQzxWJ J9 GROSS DESCRIPTION (test p7ognNLtTFGcnXC5WkTiOW code = 3366) Nez8wbm2RfdSBitEBiSLim ySUjpcBczo82wZA1pL79VX 2cYKSzGiK7TUExgmZ2Tkx1 PSSiTLOljIKhU457f1qsq5 sftzSknEH3lYhfBPIlYDKy ZMqtGGBoCaCkXD5kJGlcLH EvUVGofKAjGSoaZBMlL0Xe nxElMPtmSCInZ73ktWWdid HkKSvkvKbaWl4jvTGzmM3t cDKlVKsdEJZ8hWVlBAM4tl NkLLNwGR10JKmgCL82uDXb VWFhCBPhIAJbv73diSY7cK WfsTRpXVWaTpZrJTAwGM69 Ui9jNGPqS14ez8rrqCKqw6 WuVJZjWGfdDO06QZmjKJ4z QPQhNQYwNIlhIF71IH7oSD Xhsw44iRs5RNM5oHMxiTJd d8atC1cbfLDcIz3aOBqapO MrzGSxTrKLzZFyeWD5WDWe xF7hDOGdBCF6KGZtjRnlhH FlFNSqNSjktUXyY2K6sZ3h GsAjUHDtbietTEYwGe7pCO hlIHNwZWNpbWVuIGlzIHJl K7BatuHoIJvnRCNtI22yfY TszrTbBGhvuGadPr5udVAp rP8oyEIiBXnqUNR7xTEgHI W7rcHpGDGpAY65ADvhPF58 dIRaCQQcGDCxIYTbRa7hRG DbFKe9CBVznoMbe5FfHQ2v WULpZG76NDluEMV6TSNhL1 0cSxToB43bdyTin3DnHw7e ESC7qPGaYNNgqVecxRpwpp UkUHG2rNfvN3SuLMEyg5Ot WEIyB2Oic72cOQDstjFww7 UdlSv8uGJbRBtyMETkNKZv wWWeXHNgP7LuK5oymGAaxI gvup6sRZKwO6PfPUWtit9= MICROSCOPIC DESCRIPTION a9halIOjVGQhxTC9RvJrUH (test code = 3371) Ncu4bzf3AvpUZfrKHrQVgn sDMkzvTsac87yFQ1cO60SY 6sFQSpTqO8DSUetxR8Kci5 REBzRJRniVYdP758j1nqk2 comaIuxJT3bBpeUBZqQNDl JCfjYJUhSkWbQF6GWzEVKZ Nmy9DjCEKkJSblYIU0 Gross assessment was [facility] performed at (test code [facility], Department = 2777) of Pathology, [address] [place] [address], [facility] (test code [facility], = 2778) Department of Pathology, [address] [place] [id number], Professional component [facility] was performed at ([facility], Department code = 2779) of Pathology, [address] [place] [address], [facility] [id number] 09:25:00 Test Item Value Reference Range Interpretation Comments Case Report (test code Surgical Pathology = 104) Report Case: [id number] Authorizing Provider: Laura Nguyen MD Collected: 09/26/2020 07:56 AM Ordering Location: [address] Med/Surg Received: 09/26/2020 08:55 AM Pathologist: Hilda Mack MD Specimens: A) - Soft Tissue, Debridement, LEFT FOOT BONE CLEAN MARGIN. B) - Bone, LEFT FOOT 5TH METATARSAL HEAD. DIAGNOSIS (test code = [id number] 3220) FuZzEwMzNcZnRuYmpcdWMx IHtccnRmMVxlcGljOTIwMl juvdAsFLAsbPRgU4Kkatvn EFnxGA9yZQ6tdFpqkVEzbF QsRLVkBkUnf1fsz973xJDq f0amXERLfxvcrGa1zQkbG1 5pw4S4OoyuE66cxWJmASxv bGFpblxmczIwIEEuIEJPTk FkISsHHxSrJb9NFSXNFRTD PcZYZATOYE9eELEMW2CFDW grdWIxIMSyOX5bQd6YYLFR HqDjTpqDOz9KL82SYFGFTW KYYCLUF6LYNMlyRnBZCGYA OvCjVi3QZEIYCFJMPJ6SMG VPTVlFTElUSVNccGFyXHBh xeQAHyKSH78EUCFRIZTHKM ERP7JzFBVIGB1PTTZWRPYF UXvtMXCRDOwaSI1ISSEHLQ vCDycmlELfXAIiSM0cNIUF OFRlUO0LTGGNMa8NOFFmZ2 ZUMW0TZQMMEYSGJuVvwAGg yYdsbsSiEKpwb2YqSCakPI ZzFK7nqYelTNClNI1dANOa B6scbS1iakt4EkYuHGCkCg A9YDXrndL6Qds4KERlPNhm g6xdq7BjYXClTNb2wJsvDy IaTKEku8tsozBgOoEiJVFm NSRhQPRucXPfI307r1jdr7 tcuuPopYF9URFsHAM2PEee euIniuQ6HCzgaXSxMdJ0CJ tccmVkMFxncmVlbjBcYmx1 CWObA364CWH4xWfyi5tuJF T1ZRJsSTAyOzUdSb5oiMIs U472NAPcIYSBBPQmhRn0AN TkdoOhyzOplYZMs497K054 d7bpPZNugxBwsOzLdutcg1 qyM042TUZzsXGnyqUxHgBb BYHetIOawGC5LDRgSW6pbx vvUJoxTOdxXITzllY2DAYt hOOmG6DdPWJiTX0ckhbdIX E8KRzaMSMjGFR6NqIjZUDn c4Hyflh5BwXyyw9smv72EY I1g9VszMtzVUE4KKY9RaWv Xd7xzAIsPKHaNA0dWmHstI EjLLTvoo36fYpqYDbjTAE3 WIArhsGuz1Lbl9jyEzZsmb NoT2ulL8WaVRNrNWEbYWPy WfBkjeVta3Msd5PkyGLgwY g3c5lgYNEdUNNihGdmo1tn ARH7RCCpxFEdD5dsrV7mVQ DiAP7wpzimy0hcISzwICbr BZClrHA1flQ1IREsfJEzA1 BhyT1fHIEdSAspYBAdkzw1 ZfIcFo2fqSLgmOvrATyaOt twYWdlXHBnbmNvbnRccGdu ZGVjXHBsYWluXHBsYWluXG YwXGZzMjRccWxcbGFuZzEw MzNcaGljaFxmMVxkYmNoXG StPFleP3wiCbEoJnJvHxg2 LLOioZJfBNUfYsz0XVZfzU FhYHKEeXktwH9aTUSltIfa eZ0szPX7BCBkksYbnTHHsM 6xMHMThO9xPqChOMCqBhV6 LTcxNjNccGFyfX0= CPT Code(s) (test code e2xnzJDfWQUpnWW5EqXyBQ = 3357) Edf3bhx2RkqXGfsOGaJQby pEPrdrMcsx52oZT2pQ21MV 5hJWIbTcV5QLXifmN9Yvi7 ZVXaXKJjfJCoS239r3hsb9 dkkiZmvCV4uQdrTZKhPTJg YWluXGZzMjAgODgzMDUgWD OxDCi8QpMoGLcvKETfpd1= CLINICAL HISTORY (test w2gfhZCtFIFwaIZ8CsLlNG code = 3356) Qqe7spc6XplTQluDIsKXeb uOBtuhPjnq62iNH0mP04PW 8bRAHaPlN5SZKsysX3Ghg7 WEIsOBFppGIwZ973t1jez2 oxwoHefTN7uVflLBMkKKEw CKjmBSGaMoXqEKbjTdA5gO QxsAggIEWkh4TcjHFsiBCs c764OHFdx80omYW5KQFmm7 t5zFItwTLwXOGhxjTjVUxm hCN9zrYkgYEamD2cvC0mXN KpcGmxHqTor63vvIOfj49h GBGlq5HbZ5bqpPIzYIIcyh Eth6MeMh6yiEucxA1enUEv xGIiFTYddPzeIAMbh8ZkN6 UgXHBhcn0= SPECIMEN SOURCE (test n0bvoWDgYJExtFW2YeCqGK code = 3377) Leu7xko2KfwWHckPKhVLsr hXCbxhCfrv88kPT2xJ35UP 5uIWNlHjA8MFQrsmC2Bkv9 HHYpMTEimDIfG940e6bly3 takgWfbTO8aErvBIZqPRUb RTeyQEVcMuXwUA1lU85cuW V8xPUooFMlUDNiFvUwSAJi JH26SiGIOgURq72bSTiqJG J9 GROSS DESCRIPTION (test n5suaBYvYTHxgQH5FnFyJF code = 3366) Cuj3dqc9JkkKXixWKrLSsd pIWpbqYyli72fIY1lF25UM 7kDFEpHnX1IDVyjiU0Xbj2 DSVcKTMvgJGlA540t5skd9 qsagVoeZP6xGelEZIkWTRp ZQgfTINrJiHcPK9kUEwjLW XtAUMqyNTpNAvwKKGjC5He ngFbNWxxWDKwX46cgIQyko HaTNivoYuzRb5joCFukY9n fANnDZszSSJ5aLZfQQF9dk UkOSNmST85EWjcPZ08sDIw JAUtFSKuDRNcw13jzPR8sB BzpQVdLTQhQdEsMGIwZG72 Tk2lELUyX78is5ntgVLmv8 HmKKSkKOqgUY12BVmlBX4p IZLyJKLdWDpgUO14LT3uUW Taop99rWd9UAE7yXMqjFVd m4chU4mioGIaJg3eNEgekX BkrFWuRhZFwMGlbNW4WCLf rS6lORGzPHP5HKFrkHtwcB InEQFyJHrnoQMmL1G6tI7l KxObIKEthwvtSFFzDj5kYB hlIHNwZWNpbWVuIGlzIHJl Q6DuhcDiPOobQZWwU01adY HsafKiGObqfFkgJd9yvLPf nF2kbOIzUZqwCYK1tLIyBG U5nnHrBTQxRC63GYunPB56 nIOnOGQdYRClBNNpKj5aUL AzXKx9BLXuovHoj2YiLJ7s YERrQQ71OLmvRSN7KSEjN8 6gEyHqR43sdhUwu9UoFt1u MGQ4zQJzZVRtoIybvWaoqr YzSDG0kBkwW1XlHZIxa3Fh KURfA1Grx49aSOZtvjMjc2 OcyHi8uQFoHNosHEAzUFMk hKYpIKErE6EgS0ifrESicU ohyb1yWDVmX5AcEOHhsn8= MICROSCOPIC DESCRIPTION m4cihZMdMFEfdSU2RqPfOG (test code = 3371) Tup8ehu9BavCOqjSIjRGwn bHLinuCixd21iHR7dN21PM 1xPPWeBoX3WPPnvkR6Xod2 IYHjHPEtsMYhN470a0uac3 ttmoIydJZ2tQubMSWsVWZm SDjmGXRyCwCoMR6APnMGUL Mtj8CdIXLgJOuzBYK7 Gross assessment was [facility] performed at ([facility], Department = 2777) of Pathology, [address] [place] [address], Technical component was [facility]. ke's performed at ([facility], = 2778) Department of Pathology, [address] [place] [address], Professional component [facility] was performed at ([facility], Department code = 2779) of Pathology, [address] [place] [address], [facility] [id number] 09:25:00Surgical Pathology Report Case: [id number] Authorizing Provider: Laura Nguyen MD Collected: 09/26/2020 07:56 AM Ordering Location: [address] Med/Surg Received: 09/26/2020 08:55 AM Pathologist: Hilda Mack MD Specimens: A) - Soft Tissue, Debridement, LEFT FOOT BONE CLEAN MARGIN. B) -Bone, LEFT FOOT 5TH METATARSAL HEAD. A. BONE, LEFT FOOT CLEAN MARGIN, BIOPSY: - BONE AND FIBROCONNECTIVE TISSUE, NEGATIVE FOR ACUTE OSTEOMYELITISB. BONE, LEFT FOOT 5TH METATARSAL HEAD, AMPUTATION: - ACUTE AND CHRONIC OSTEOMYELITIS Signing Pathologist Direct Phone Line: [phone] signed by Hilda Mack MD on 10/01/2020 at 9:25 [id number] X2, [id number] [id number] ulcer of left foot associated with diabetes mellitus due to underlying condition, unspecified part of foot, unspecified ulcer stage A. Soft tissue, debridement; B. Bone A. The specimen is received in a container with formalin labeled with two patient identifiers and "soft tissue, debridement". It consists of a 1 x 0.6 x 0.2 cm fragment of serra-white tissue which is focally firm. Submitted in A1 after light decalcification. B. The specimen is received in a containerwith formalin labeled with two patient identifiers and "bone". It consists of a 1.5 x 1 x 1 cm fragment of bone with articular cartilage. Cross sectioned and submitted in B1 after decalcification. [place]/Shyanne-B. Performed. [facility], Department of Pathology, [address] [place] [address], Jbxjld [facility], Department of Pathology, [address] [place] [address], [facility], [facility], [address] [place], [place] [address], DSY-Glucose [id number] 12:31:00 Test Item Value Reference Range Interpretation Comments POC-Glucose Meter (test 178 mg/dL 70-110 H : No tified RN/MD: code = 1538) TESTED AT [place] [address]38: [employer]/Techni cornelia ID = [id number] for Salvatore Ramírez Lab Interpretation (test Abnormal code = 26498-7) [facility] [id number] 12:31:00 Test Item Value Reference Range Interpretation Comments POC-Glucose Meter (test 178 mg/dL 70-110 H : No tified RN/MD: code = 1538) TESTED AT [place] [address]: [employer] Mate/Techni cornelia ID = [id number] for Salvatore Ramírez Lab Interpretation (test Abnormal code = 09372-9) [facility] [id number] 12:31:00 Test Item Value Reference Range Interpretation Comments POC-Glucose Meter (test 178 mg/dL 70-110 H : No tified RN/MD: code = 1538) TESTED AT [place] [address]: [employer]/Techni cornelia ID = [id number] for Bassey, Margare t Lab Interpretation (test Abnormal code = 40207-7) [facility] [id number] 12:31:00 Test Item Value Reference Range Interpretation Comments POC-Glucose Meter (test 178 mg/dL 70-110 H : No tified RN/MD: code = 1538) TESTED AT [place] [address]: [employer]/Techni cornelia ID = [id number] for Bassey, Margare t Lab Interpretation (test Abnormal code = 33142-5) [facility] [id number] 12:31:00 Test Item Value Reference Range Interpretation Comments POC-Glucose Meter (test 178 mg/dL 70-110 H : No tified RN/MD: code = 1538) TESTED AT [place] [address]: [employer] Mate/Techni cornelia ID = [id number] for Bassey, Margare t Lab Interpretation (test Abnormal code = 36000-5) [facility] [id number] 12:31:00 Test Item Value Reference Range Interpretation Comments POC-Glucose Meter (test 178 mg/dL 70-110 H : No tified RN/MD: code = 1538) TESTED AT [place] [address]: [employer] Mate/Techni cornelia ID = [id number] for Bassey, Margare t Lab Interpretation (test Abnormal code = 25610-4) [facility] [id number] 12:31:00 Test Item Value Reference Range Interpretation Comments POC-Glucose Meter (test 178 mg/dL 70-110 H : No tified RN/MD: code = 1538) TESTED AT [place] [address]: [employer] Mate/Techni cornelia ID = [id number] for Salvatore Ramírez Lab Interpretation (test Abnormal code = 31572-7) [facility]ilionPO[facility]GLUCOSE [id number] 12:31:00 Test Item Value Reference Range Interpretation Comments POC-GLUCOSE METER 178 mg/dL 70-110 H : Notified RN/MD: TESTED (BEAKER) (test code AT [facility] [address], [facility] [address]: [employer] Mate/Techni cornelia ID = [id number] for Cony Osborne Basic Metabolic [id number] 06:00:00 Test Item Value Reference Range Interpretation Comments Sodium (test code = 138 meq/L 727-837 2884-2) Potassium (test code 4.3 meq/L 3.6-5.5 = 2823-3) Chloride (test code 101 meq/L 98-106 = 2075-0) CO2 (test code = 31 meq/L 20-29 H 2028-9) BUN (test code = 54 mg/dL 10-26 H 3094-0) Creatinine (test 2.16 mg/dL 0.5-1.2 H code = 2160-0) Glucose (test code = 177 mg/dL 70-110 H 2345-7) Calcium (test code = 8.9 mg/dL 8.5-10.5 21828-9) EGFR (test code = 33 mL/min/1[place]73 [place] [address]-9) m NOT ACCURATE CREATININE CLEARANCE IN PREDICTING GLOMERULAR FILTRATION RATE . ESTIMATED GFR I S NOT APPLICABLE FOR DIALYSIS PATIENTS. ISSA (test code = [employer] Mate ID - ISSA) JBERNOperator ID - JBERNOperator ID - JBERNOperator ID - JBERNOperator ID - JBERNOperator ID - JBERNOperator ID - JBERNOperator ID - JBERNOperator ID - JBERNOperator ID - JBERN Lab Interpretation Abnormal (test code = 08804-0) [facility] Metabolic [id number] 06:00:00 Test Item Value Reference Range Interpretation Comments Sodium (test code = 138 meq/L 139-144 2408-2) Potassium (test code 4.3 meq/L 3.6-5.5 = 2823-3) Chloride (test code 101 meq/L 98-106 = 2075-0) CO2 (test code = 31 meq/L 20-29 H 2027-) BUN (test code = 54 mg/dL 10-26 H 3094-0) Creatinine (test 2.16 mg/dL 0.5-1.2 H code = 2160-0) Glucose (test code = 177 mg/dL 70-110 H 2345-7) Calcium (test code = 8.9 mg/dL 8.5-10.5 72624-7) EGFR (test code = 33 mL/min/1.73 [place] [address]-6) m NOT ACCURATE CREATININE CLEARANCE IN PREDICTING GLOMERULAR FILTRATION RATE . ESTIMATED GFR I S NOT APPLICABLE FOR DIALYSIS PATIENTS. ISSA (test code = [employer] Mate ID - ISSA) JBERNOperator ID - JBERNOperator ID - JBERNOperator ID - JBERNOperator ID - JBERNOperator ID - JBERNOperator ID - JBERNOperator ID - JBERNOperator ID - JBERNOperator ID - JBERN Lab Interpretation Abnormal (test code = 37554-6) [facility] Metabolic [id number] 06:00:00 Test Item Value Reference Range Interpretation Comments Sodium (test code = 138 meq/L 309-295 0832-2) Potassium (test code 4.3 meq/L 3.6-5.5 = 2823-3) Chloride (test code 101 meq/L 98-106 = 2075-0) CO2 (test code = 31 meq/L 20-29 H 2027-11) BUN (test code = 54 mg/dL 10-26 H 3094-0) Creatinine (test 2.16 mg/dL 0.5-1.2 H code = 2160-0) Glucose (test code = 177 mg/dL 70-110 H 2345-7) Calcium (test code = 8.9 mg/dL 8.5-10.5 84931-6) EGFR (test code = 33 mL/min/1.[place] [address]-8) m NOT ACCURATE CREATININE CLEARANCE IN PREDICTING GLOMERULAR FILTRATION RATE . ESTIMATED GFR I S NOT APPLICABLE FOR DIALYSIS PATIENTS. ISSA (test code = [employer] Mate ID - ISSA) JBERNOperator ID - JBERNOperator ID - JBERNOperator ID - JBERNOperator ID - JBERNOperator ID - JBERNOperator ID - JBERNOperator ID - JBERNOperator ID - JBERNOperator ID - JBERN Lab Interpretation Abnormal (test code = 92879-8) [facility] Metabolic [id number] 06:00:00 Test Item Value Reference Range Interpretation Comments Sodium (test code = 138 meq/L 801-036 6623-2) Potassium (test code 4.3 meq/L 3.6-5.5 = 2823-3) Chloride (test code 101 meq/L 98-106 = 2075-0) CO2 (test code = 31 meq/L 20-29 H 2028-9) BUN (test code = 54 mg/dL 10-26 H 3094-0) Creatinine (test 2.16 mg/dL 0.5-1.2 H code = 2160-0) Glucose (test code = 177 mg/dL 70-110 H 2345-7) Calcium (test code = 8.9 mg/dL 8.5-10.5 23640-0) EGFR (test code = 33 mL/min/1.[place] [address]-3) m NOT ACCURATE CREATININE CLEARANCE IN PREDICTING GLOMERULAR FILTRATION RATE . ESTIMATED GFR I S NOT APPLICABLE FOR DIALYSIS PATIENTS. ISSA (test code = [employer] Mate ID - ISSA) JBERNOperator ID - JBERNOperator ID - JBERNOperator ID - JBERNOperator ID - JBERNOperator ID - JBERNOperator ID - JBERNOperator ID - JBERNOperator ID - JBERNOperator ID - JBERN Lab Interpretation Abnormal (test code = 38138-8) [facility] Metabolic [id number] 06:00:00 Test Item Value Reference Range Interpretation Comments Sodium (test code = 138 meq/L 773-535 8931-2) Potassium (test code 4.3 meq/L 3.6-5.5 = 2823-3) Chloride (test code 101 meq/L 98-106 = 2075-0) CO2 (test code = 31 meq/L 20-29 H 2027-9) BUN (test code = 54 mg/dL 10-26 H 3094-0) Creatinine (test 2.16 mg/dL 0.50-1.20 H code = 2160-0) Glucose (test code = 177 mg/dL 70-110 H 2345-7) Calcium (test code = 8.9 mg/dL 8.5-10.5 53132-8) EGFR (test code = 33 mL/min/1.73 [place] [address]-1) m NOT ACCURATE CREATININE CLEARANCE IN PREDICTING GLOMERULAR FILTRATION RATE . ESTIMATED GFR I S NOT APPLICABLE FOR DIALYSIS PATIENTS. ISSA (test code = [employer] Mate ID - ISSA) JBERNOperator ID - JBERNOperator ID - JBERNOperator ID - JBERNOperator ID - JBERNOperator ID - JBERNOperator ID - JBERNOperator ID - JBERNOperator ID - JBERNOperator ID - JBERN Lab Interpretation Abnormal (test code = 80888-5) [facility] Metabolic [id number] 06:00:00 Test Item Value Reference Range Interpretation Comments Sodium (test code = 138 meq/L 081-760 6916-2) Potassium (test code 4.3 meq/L 3.6-5.5 = 2823-3) Chloride (test code 101 meq/L 98-106 = 2075-0) CO2 (test code = 31 meq/L 20-29 H 2027-9) BUN (test code = 54 mg/dL 10-26 H 3094-0) Creatinine (test 2.16 mg/dL 0.50-1.20 H code = 2160-0) Glucose (test code = 177 mg/dL 70-110 H 2345-7) Calcium (test code = 8.9 mg/dL 8.5-10.5 83346-1) EGFR (test code = 33 mL/min/1.[place] [address]-2) m NOT ACCURATE CREATININE CLEARANCE IN PREDICTING GLOMERULAR FILTRATION RATE . ESTIMATED GFR I S NOT APPLICABLE FOR DIALYSIS PATIENTS. ISSA (test code = [employer] Mate ID - ISSA) JBERNOperator ID - JBERNOperator ID - JBERNOperator ID - JBERNOperator ID - JBERNOperator ID - JBERNOperator ID - JBERNOperator ID - JBERNOperator ID - JBERNOperator ID - JBERN Lab Interpretation Abnormal (test code = 97321-1) [facility] Metabolic [id number] 06:00:00 Test Item Value Reference Range Interpretation Comments Sodium (test code = 138 meq/L 297-564 1305-2) Potassium (test code 4.3 meq/L 3.6-5.5 = 2823-3) Chloride (test code 101 meq/L 98-106 = 2075-0) CO2 (test code = 31 meq/L 20-29 H 2028-9) BUN (test code = 54 mg/dL 10-26 H 3094-0) Creatinine (test 2.16 mg/dL 0.50-1.20 H code = 2160-0) Glucose (test code = 177 mg/dL 70-110 H 2345-7) Calcium (test code = 8.9 mg/dL 8.5-10.5 49230-5) EGFR (test code = 33 mL/min/1.73 [place] [address]-8) m NOT ACCURATE CREATININE CLEARANCE IN PREDICTING GLOMERULAR FILTRATION RATE . ESTIMATED GFR I S NOT APPLICABLE FOR DIALYSIS PATIENTS. ISSA (test code = [employer] Mate ID - ISSA) JBERNOperator ID - JBERNOperator ID - JBERNOperator ID - JBERNOperator ID - JBERNOperator ID - JBERNOperator ID - JBERNOperator ID - JBERNOperator ID - JBERNOperator ID - JBERN Lab Interpretation Abnormal (test code = 40791-4) [facility] METABOLIC [id number] 06:00:00 Test Item Value Reference Range Interpretation Comments SODIUM (BEAKER) 138 meq/L 135-148 (test code = 381) POTASSIUM (BEAKER) 4.3 meq/L 3.6-5.5 (test code = 379) CHLORIDE (BEAKER) 101 meq/L 98-106 (test code = 382) CO2 (BEAKER) (test 31 meq/L 20-29 H code = 355) BLOOD UREA NITROGEN 54 mg/dL 10-26 H (BEAKER) (test code = 354) CREATININE (BEAKER) 2.16 mg/dL 0.50-1.20 H (test code = 358) GLUCOSE RANDOM 177 mg/dL 70-110 H (BEAKER) (test code = 652) CALCIUM (BEAKER) 8.9 mg/dL 8.5-10.5 (test code = 697) EGFR (BEAKER) (test 33 mL/min/1.73 ESTIMA JOSÉ LUIS GFR IS code = 1092) sq m NOT ACCURATE CREATININE CLEARANCE IN PREDICTING GLOMERULAR FILTRATION RATE . ESTIMATED GFR I S NOT APPLICABLE FOR DIALYSIS PATIEN TS. [employer] Mate ID - JBERNOperator ID - JBERNOperator ID - JBERNOperator ID - JBERNOperator ID - JBERNOperator ID - JBERNOperator ID - JBERNOperator ID - JBERNOperator ID - JBERNOperator ID - [id number] 05:42:00 Test Item Value Reference Range Interpretation Comments Magnesium (test code = 2.2 mg/dL 1.5-3 77998-4) ISSA (test code = ISSA) [employer] Mate ID - JBERNOperator ID - JBERNOperator ID - JBERNOperator ID - JBERN Lab Interpretation Normal (test code = 15106-4) [facility] Test Item Value Reference Range Interpretation Comments Magnesium (test code = 2.2 mg/dL 1.5-3 24674-9) ISSA (test code = ISSA) [employer] Mate ID - JBERNOperator ID - JBERNOperator ID - JBERNOperator ID - JBERN Lab Interpretation Normal (test code = 12492-6) [facility] 05:[facility] Test Item Value Reference Range Interpretation Comments Magnesium (test code = 2.2 mg/dL 1.5-3 83023-9) ISSA (test code = ISSA) [employer] ID - JBERNOperator ID - JBERNOperator ID - JBERNOperator ID - JBERN Lab Interpretation Normal (test code = 40475-9) [facility] 05:[facility]00 Test Item Value Reference Range Interpretation Comments Magnesium (test code = 2.2 mg/dL 1.5-3 14551-5) ISSA (test code = ISSA) [employer] ID - JBERNOperator ID - JBERNOperator ID - JBERNOperator ID - JBERN Lab Interpretation Normal (test code = 00970-3) [facility]2021-07-04 05:42:00 Test Item Value Reference Range Interpretation Comments Magnesium (test code = 2.2 mg/dL 1.5-3.0 43198-3) ISSA (test code = ISSA) [employer] Mate ID - JBERNOperator ID - JBERNOperator ID - JBERNOperator ID - JBERN Lab Interpretation Normal (test code = 33015-3) [facility]2021-07-04 05:42:00 Test Item Value Reference Range Interpretation Comments Magnesium (test code = 2.2 mg/dL 1.5-3.0 44949-5) ISSA (test code = ISSA) [employer] ID - JBERNOperator ID - JBERNOperator ID - JBERNOperator ID - JBERN Lab Interpretation Normal (test code = 39062-3) [facility]2021-07-04 05:42:00 Test Item Value Reference Range Interpretation Comments Magnesium (test code = 2.2 mg/dL 1.5-3.0 13006-7) ISSA (test code = ISAS) [employer] ID - JBERNOperator ID - JBERNOperator ID - JBERNOperator ID - JBERN Lab Interpretation Normal (test code = 08962-0) [facility]2021-07-04 05:42:00 Test Item Value Reference Range Interpretation Comments MAGNESIUM (BEAKER) (test code = 2.2 mg/dL 1.5-3.0 627) [employer] ID - JBERNOperator ID - JBERNOperator ID - JBERNOperator ID - JBERNCBC with platelet count + automated [id number] 05:17:00 Test Item Value Reference Range Interpretation Comments WBC (test code = 6690-2) 7.6 See_Comment [A utomated message] The system [employer] generated this result transmitted ref erence range: 4.0 - 10 .0 K/L. The refe rence range was not u sed to interpret this result as normal/abnor mal. RBC (test code = 789-8) 3.54 See_Comment L [Au tomated message] The system [employer] generated this result transmitted ref erence range: 4.20 - 5 .80 M/L. The refe rence range was not u sed to interpret this result as normal/abnor mal. MCHC (test code = 786-4) 31.0 See_Comment L [A utomated message] The system [employer] generated this result transmitted ref erence range: 32.0 - 3 6.0 GM/DL. The refe rence range was not u sed to interpret this result as normal/abnor mal. Hematocrit (test code = 34.2 % 36-50 L 4544-3) MCV (test code = 787-2) 96.6 fL 82-99 MCH (test code = 785-6) 29.9 pg 27-33 RDW (test code = 788-0) 15.2 % 12-15 H Platelets (test code = 230 See_Comment [Aut omated message] 777-3) The system [employer] generated this result transmitted ref erence range: 150 - 43 0 K/CU MM. The referen ce range was not u sed to interpret this result as normal/abnor mal. MPV (test code = 11.1 fL 6-11.5 76734-4) nRBC (test code = 413) 0 See_Comment [Aut omated message] The system [employer] generated this result transmitted ref erence range: 0 - 0 /1 00 WBC. The refere nce range was not u sed to interpret this result as normal/abnor mal. % Neutros (test code = 73 % 429) % Lymphs (test code = 13 % 430) % Monos (test code = 10 % 431) % Eos (test code = 432) 3 % % Baso (test code = 437) 1 % # Neutros (test code = 5.55 See_Comment [Aut omated message] 670) The system [employer] generated this result transmitted ref erence range: 1.80 - 8 .00 K/L. The refe rence range was not u sed to interpret this result as normal/abnor mal. # Lymphs (test code = 0.97 See_Comment L [Auto mated message] 414) The system [employer] generated this result transmitted ref erence range: 1.48 - 4 .50 K/L. The refe rence range was not u sed to interpret this result as normal/abnor mal. # Monos (test code = 0.74 See_Comment [Autom ated message] 415) The system [employer] generated this result transmitted ref erence range: 0.00 - 1 .30 K/L. The refe rence range was not u sed to interpret this result as normal/abnor mal. # Eos (test code = 416) 0.21 See_Comment [Au tomated message] The system [employer] generated this result transmitted ref erence range: 0.00 - 0 .50 K/L. The refe rence range was not u sed to interpret this result as normal/abnor mal. # Baso (test code = 417) 0.05 See_Comment [A utomated message] The system [employer] generated this result transmitted ref erence range: 0.00 - 0 .20 K/L. The refe rence range was not u sed to interpret this result as normal/abnor mal. Immature 1 % 0-0 H Granulocytes-Relative (test code = 2801) Lab Interpretation (test Abnormal code = 30813-2) [facility] with platelet count + automated [id number] 05:17:00 Test Item Value Reference Range Interpretation Comments WBC (test code = 6690-2) 7.6 See_Comment [A utomated message] The system [employer] generated this result transmitted ref erence range: 4.0 - 10 .0 K/L. The refe rence range was not u sed to interpret this result as normal/abnor mal. RBC (test code = 789-8) 3.54 See_Comment L [Au tomated message] The system [employer] generated this result transmitted ref erence range: 4.20 - 5 .80 M/L. The refe rence range was not u sed to interpret this result as normal/abnor mal. MCHC (test code = 786-4) 31.0 See_Comment L [A utomated message] The system [employer] generated this result transmitted ref erence range: 32.0 - 3 6.0 GM/DL. The refe rence range was not u sed to interpret this result as normal/abnor mal. Hematocrit (test code = 34.2 % 36-50 L 4544-3) MCV (test code = 787-2) 96.6 fL 82-99 MCH (test code = 785-6) 29.9 pg 27-33 RDW (test code = 788-0) 15.2 % 12-15 H Platelets (test code = 230 See_Comment [Aut omated message] 777-3) The system [employer] generated this result transmitted ref erence range: 150 - 43 0 K/CU MM. The referen ce range was not u sed to interpret this result as normal/abnor mal. MPV (test code = 11.1 fL 6-11.5 00507-4) nRBC (test code = 413) 0 See_Comment [Aut omated message] The system [employer] generated this result transmitted ref erence range: 0 - 0 /1 00 WBC. The refere nce range was not u sed to interpret this result as normal/abnor mal. % Neutros (test code = 73 % 429) % Lymphs (test code = 13 % 430) % Monos (test code = 10 % 431) % Eos (test code = 432) 3 % % Baso (test code = 437) 1 % # Neutros (test code = 5.55 See_Comment [Aut omated message] 670) The system [employer] generated this result transmitted ref erence range: 1.80 - 8 .00 K/L. The refe rence range was not u sed to interpret this result as normal/abnor mal. # Lymphs (test code = 0.97 See_Comment L [Auto mated message] 414) The system [employer] generated this result transmitted ref erence range: 1.48 - 4 .50 K/L. The refe rence range was not u sed to interpret this result as normal/abnor mal. # Monos (test code = 0.74 See_Comment [Autom ated message] 415) The system HipChat generated this result transmitted ref erence range: 0.00 - 1 .30 K/L. The refe rence range was not u sed to interpret this result as normal/abnor mal. # Eos (test code = 416) 0.21 See_Comment [Au tomated message] The system HipChat generated this result transmitted ref erence range: 0.00 - 0 .50 K/L. The refe rence range was not u sed to interpret this result as normal/abnor mal. # Baso (test code = 417) 0.05 See_Comment [A utomated message] The system HipChat generated this result transmitted ref erence range: 0.00 - 0 .20 K/L. The refe rence range was not u sed to interpret this result as normal/abnor mal. Immature 1 % 0-0 H Granulocytes-Relative (test code = 2801) Lab Interpretation (test Abnormal code = 18813-4) [facility] with platelet count + automated [id number] 05:17:00 Test Item Value Reference Range Interpretation Comments WBC (test code = 6690-2) 7.6 See_Comment [A utomated message] The system HipChat generated this result transmitted ref erence range: 4.0 - 10 .0 K/L. The refe rence range was not u sed to interpret this result as normal/abnor mal. RBC (test code = 789-8) 3.54 See_Comment L [Au tomated message] The system HipChat generated this result transmitted ref erence range: 4.20 - 5 .80 M/L. The refe rence range was not u sed to interpret this result as normal/abnor mal. MCHC (test code = 786-4) 31.0 See_Comment L [A utomated message] The system HipChat generated this result transmitted ref erence range: 32.0 - 3 6.0 GM/DL. The refe rence range was not u sed to interpret this result as normal/abnor mal. Hematocrit (test code = 34.2 % 36-50 L 4544-3) MCV (test code = 787-2) 96.6 fL 82-99 MCH (test code = 785-6) 29.9 pg 27-33 RDW (test code = 788-0) 15.2 % 12-15 H Platelets (test code = 230 See_Comment [Aut omated message] 777-3) The system HipChat generated this result transmitted ref erence range: 150 - 43 0 K/CU MM. The referen ce range was not u sed to interpret this result as normal/abnor mal. MPV (test code = 11.1 fL 6-11.5 73471-6) nRBC (test code = 413) 0 See_Comment [Aut omated message] The system HipChat generated this result transmitted ref erence range: 0 - 0 /1 00 WBC. The refere nce range was not u sed to interpret this result as normal/abnor mal. % Neutros (test code = 73 % 429) % Lymphs (test code = 13 % 430) % Monos (test code = 10 % 431) % Eos (test code = 432) 3 % % Baso (test code = 437) 1 % # Neutros (test code = 5.55 See_Comment [Aut omated message] 670) The system HipChat generated this result transmitted ref erence range: 1.80 - 8 .00 K/L. The refe rence range was not u sed to interpret this result as normal/abnor mal. # Lymphs (test code = 0.97 See_Comment L [Auto mated message] 414) The system HipChat generated this result transmitted ref erence range: 1.48 - 4 .50 K/L. The refe rence range was not u sed to interpret this result as normal/abnor mal. # Monos (test code = 0.74 See_Comment [Autom ated message] 415) The system HipChat generated this result transmitted ref erence range: 0.00 - 1 .30 K/L. The refe rence range was not u sed to interpret this result as normal/abnor mal. # Eos (test code = 416) 0.21 See_Comment [Au tomated message] The system HipChat generated this result transmitted ref erence range: 0.00 - 0 .50 K/L. The refe rence range was not u sed to interpret this result as normal/abnor mal. # Baso (test code = 417) 0.05 See_Comment [A utomated message] The system HipChat generated this result transmitted ref erence range: 0.00 - 0 .20 K/L. The refe rence range was not u sed to interpret this result as normal/abnor mal. Immature 1 % 0-0 H Granulocytes-Relative (test code = 2801) Lab Interpretation (test Abnormal code = 89732-6) [facility] with platelet count + automated [id number] 05:17:00 Test Item Value Reference Range Interpretation Comments WBC (test code = 6690-2) 7.6 See_Comment [A utomated message] The system HipChat generated this result transmitted ref erence range: 4.0 - 10 .0 K/L. The refe rence range was not u sed to interpret this result as normal/abnor mal. RBC (test code = 789-8) 3.54 See_Comment L [Au tomated message] The system HipChat generated this result transmitted ref erence range: 4.20 - 5 .80 M/L. The refe rence range was not u sed to interpret this result as normal/abnor mal. MCHC (test code = 786-4) 31.0 See_Comment L [A utomated message] The system HipChat generated this result transmitted ref erence range: 32.0 - 3 6.0 GM/DL. The refe rence range was not u sed to interpret this result as normal/abnor mal. Hematocrit (test code = 34.2 % 36-50 L 4544-3) MCV (test code = 787-2) 96.6 fL 82-99 MCH (test code = 785-6) 29.9 pg 27-33 RDW (test code = 788-0) 15.2 % 12-15 H Platelets (test code = 230 See_Comment [Aut omated message] 777-3) The system HipChat generated this result transmitted ref erence range: 150 - 43 0 K/CU MM. The referen ce range was not u sed to interpret this result as normal/abnor mal. MPV (test code = 11.1 fL 6-11.5 61290-3) nRBC (test code = 413) 0 See_Comment [Aut omated message] The system HipChat generated this result transmitted ref erence range: 0 - 0 /1 00 WBC. The refere nce range was not u sed to interpret this result as normal/abnor mal. % Neutros (test code = 73 % 429) % Lymphs (test code = 13 % 430) % Monos (test code = 10 % 431) % Eos (test code = 432) 3 % % Baso (test code = 437) 1 % # Neutros (test code = 5.55 See_Comment [Aut omated message] 670) The system HipChat generated this result transmitted ref erence range: 1.80 - 8 .00 K/L. The refe rence range was not u sed to interpret this result as normal/abnor mal. # Lymphs (test code = 0.97 See_Comment L [Auto mated message] 414) The system HipChat generated this result transmitted ref erence range: 1.48 - 4 .50 K/L. The refe rence range was not u sed to interpret this result as normal/abnor mal. # Monos (test code = 0.74 See_Comment [Autom ated message] 415) The system HipChat generated this result transmitted ref erence range: 0.00 - 1 .30 K/L. The refe rence range was not u sed to interpret this result as normal/abnor mal. # Eos (test code = 416) 0.21 See_Comment [Au tomated message] The system HipChat generated this result transmitted ref erence range: 0.00 - 0 .50 K/L. The refe rence range was not u sed to interpret this result as normal/abnor mal. # Baso (test code = 417) 0.05 See_Comment [A utomated message] The system HipChat generated this result transmitted ref erence range: 0.00 - 0 .20 K/L. The refe rence range was not u sed to interpret this result as normal/abnor mal. Immature 1 % 0-0 H Granulocytes-Relative (test code = 2801) Lab Interpretation (test Abnormal code = 88822-6) [facility] with platelet count + automated [id number] 05:17:00 Test Item Value Reference Range Interpretation Comments WBC (test code = 6690-2) 7.6 See_Comment [A utomated message] The system HipChat generated this result transmitted ref erence range: 4.0 - 10 .0 K/L. The refe rence range was not u sed to interpret this result as normal/abnor mal. RBC (test code = 789-8) 3.54 See_Comment L [Au tomated message] The system HipChat generated this result transmitted ref erence range: 4.20 - 5 .80 M/L. The refe rence range was not u sed to interpret this result as normal/abnor mal. MCHC (test code = 786-4) 31.0 See_Comment L [A utomated message] The system HipChat generated this result transmitted ref erence range: 32.0 - 3 6.0 GM/DL. The refe rence range was not u sed to interpret this result as normal/abnor mal. Hematocrit (test code = 34.2 % 36.0-50.0 L 4544-3) MCV (test code = 787-2) 96.6 fL 82.0-99.0 MCH (test code = 785-6) 29.9 pg 27.0-33.0 RDW (test code = 788-0) 15.2 % 12.0-15.0 H Platelets (test code = 230 See_Comment [Aut omated message] 777-3) The system HipChat generated this result transmitted ref erence range: 150 - 43 0 K/CU MM. The referen ce range was not u sed to interpret this result as normal/abnor mal. MPV (test code = 11.1 fL 6.0-11.5 04483-8) nRBC (test code = 413) 0 See_Comment [Aut omated message] The system HipChat generated this result transmitted ref erence range: 0 - 0 /1 00 WBC. The refere nce range was not u sed to interpret this result as normal/abnor mal. % Neutros (test code = 73 % 429) % Lymphs (test code = 13 % 430) % Monos (test code = 10 % 431) % Eos (test code = 432) 3 % % Baso (test code = 437) 1 % # Neutros (test code = 5.55 See_Comment [Aut omated message] 670) The system HipChat generated this result transmitted ref erence range: 1.80 - 8 .00 K/L. The refe rence range was not u sed to interpret this result as normal/abnor mal. # Lymphs (test code = 0.97 See_Comment L [Auto mated message] 414) The system HipChat generated this result transmitted ref erence range: 1.48 - 4 .50 K/L. The refe rence range was not u sed to interpret this result as normal/abnor mal. # Monos (test code = 0.74 See_Comment [Autom ated message] 415) The system HipChat generated this result transmitted ref erence range: 0.00 - 1 .30 K/L. The refe rence range was not u sed to interpret this result as normal/abnor mal. # Eos (test code = 416) 0.21 See_Comment [Au tomated message] The system HipChat generated this result transmitted ref erence range: 0.00 - 0 .50 K/L. The refe rence range was not u sed to interpret this result as normal/abnor mal. # Baso (test code = 417) 0.05 See_Comment [A utomated message] The system HipChat generated this result transmitted ref erence range: 0.00 - 0 .20 K/L. The refe rence range was not u sed to interpret this result as normal/abnor mal. Immature 1 % 0-0 H Granulocytes-Relative (test code = 2801) Lab Interpretation (test Abnormal code = 30604-8) [facility] with platelet count + automated [id number] 05:17:00 Test Item Value Reference Range Interpretation Comments WBC (test code = 6690-2) 7.6 See_Comment [A utomated message] The system HipChat generated this result transmitted ref erence range: 4.0 - 10 .0 K/L. The refe rence range was not u sed to interpret this result as normal/abnor mal. RBC (test code = 789-8) 3.54 See_Comment L [Au tomated message] The system HipChat generated this result transmitted ref erence range: 4.20 - 5 .80 M/L. The refe rence range was not u sed to interpret this result as normal/abnor mal. MCHC (test code = 786-4) 31.0 See_Comment L [A utomated message] The system HipChat generated this result transmitted ref erence range: 32.0 - 3 6.0 GM/DL. The refe rence range was not u sed to interpret this result as normal/abnor mal. Hematocrit (test code = 34.2 % 36.0-50.0 L 4544-3) MCV (test code = 787-2) 96.6 fL 82.0-99.0 MCH (test code = 785-6) 29.9 pg 27.0-33.0 RDW (test code = 788-0) 15.2 % 12.0-15.0 H Platelets (test code = 230 See_Comment [Aut omated message] 777-3) The system HipChat generated this result transmitted ref erence range: 150 - 43 0 K/CU MM. The referen ce range was not u sed to interpret this result as normal/abnor mal. MPV (test code = 11.1 fL 6.0-11.5 15705-3) nRBC (test code = 413) 0 See_Comment [Aut omated message] The system HipChat generated this result transmitted ref erence range: 0 - 0 /1 00 WBC. The refere nce range was not u sed to interpret this result as normal/abnor mal. % Neutros (test code = 73 % 429) % Lymphs (test code = 13 % 430) % Monos (test code = 10 % 431) % Eos (test code = 432) 3 % % Baso (test code = 437) 1 % # Neutros (test code = 5.55 See_Comment [Aut omated message] 670) The system HipChat generated this result transmitted ref erence range: 1.80 - 8 .00 K/L. The refe rence range was not u sed to interpret this result as normal/abnor mal. # Lymphs (test code = 0.97 See_Comment L [Auto mated message] 414) The system HipChat generated this result transmitted ref erence range: 1.48 - 4 .50 K/L. The refe rence range was not u sed to interpret this result as normal/abnor mal. # Monos (test code = 0.74 See_Comment [Autom ated message] 415) The system HipChat generated this result transmitted ref erence range: 0.00 - 1 .30 K/L. The refe rence range was not u sed to interpret this result as normal/abnor mal. # Eos (test code = 416) 0.21 See_Comment [Au tomated message] The system HipChat generated this result transmitted ref erence range: 0.00 - 0 .50 K/L. The refe rence range was not u sed to interpret this result as normal/abnor mal. # Baso (test code = 417) 0.05 See_Comment [A utomated message] The system HipChat generated this result transmitted ref erence range: 0.00 - 0 .20 K/L. The refe rence range was not u sed to interpret this result as normal/abnor mal. Immature 1 % 0-0 H Granulocytes-Relative (test code = 2801) Lab Interpretation (test Abnormal code = 32244-4) [facility] [id number] 05:17:00 Test Item Value Reference Range Interpretation Comments WBC (test code = 6690-2) 7.6 See_Comment [A utomated message] The system HipChat generated this result transmitted ref erence range: 4.0 - 10 .0 K/L. The refe rence range was not u sed to interpret this result as normal/abnor mal. RBC (test code = 789-8) 3.54 See_Comment L [Au tomated message] The system HipChat generated this result transmitted ref erence range: 4.20 - 5 .80 M/L. The refe rence range was not u sed to interpret this result as normal/abnor mal. MCHC (test code = 786-4) 31.0 See_Comment L [A utomated message] The system HipChat generated this result transmitted ref erence range: 32.0 - 3 6.0 GM/DL. The refe rence range was not u sed to interpret this result as normal/abnor mal. Hematocrit (test code = 34.2 % 36.0-50.0 L 4544-3) MCV (test code = 787-2) 96.6 fL 82.0-99.0 MCH (test code = 785-6) 29.9 pg 27.0-33.0 RDW (test code = 788-0) 15.2 % 12.0-15.0 H Platelets (test code = 230 See_Comment [Aut omated message] 777-3) The system HipChat generated this result transmitted ref erence range: 150 - 43 0 K/CU MM. The referen ce range was not u sed to interpret this result as normal/abnor mal. MPV (test code = 11.1 fL 6.0-11.5 19049-3) nRBC (test code = 413) 0 See_Comment [Aut omated message] The system HipChat generated this result transmitted ref erence range: 0 - 0 /1 00 WBC. The refere nce range was not u sed to interpret this result as normal/abnor mal. % Neutros (test code = 73 % 429) % Lymphs (test code = 13 % 430) % Monos (test code = 10 % 431) % Eos (test code = 432) 3 % % Baso (test code = 437) 1 % # Neutros (test code = 5.55 See_Comment [Aut omated message] 670) The system HipChat generated this result transmitted ref erence range: 1.80 - 8 .00 K/L. The refe rence range was not u sed to interpret this result as normal/abnor mal. # Lymphs (test code = 0.97 See_Comment L [Auto mated message] 414) The system HipChat generated this result transmitted ref erence range: 1.48 - 4 .50 K/L. The refe rence range was not u sed to interpret this result as normal/abnor mal. # Monos (test code = 0.74 See_Comment [Autom ated message] 415) The system HipChat generated this result transmitted ref erence range: 0.00 - 1 .30 K/L. The refe rence range was not u sed to interpret this result as normal/abnor mal. # Eos (test code = 416) 0.21 See_Comment [Au tomated message] The system HipChat generated this result transmitted ref erence range: 0.00 - 0 .50 K/L. The refe rence range was not u sed to interpret this result as normal/abnor mal. # Baso (test code = 417) 0.05 See_Comment [A utomated message] The system HipChat generated this result transmitted ref erence range: 0.00 - 0 .20 K/L. The refe rence range was not u sed to interpret this result as normal/abnor mal. Immature 1 % 0-0 H Granulocytes-Relative (test code = 2801) Lab Interpretation (test Abnormal code = 64371-9) [facility] W/PLT COUNT & AUTO [id number] 05:17:00 Test Item Value Reference Range Interpretation Comments WHITE BLOOD CELL COUNT (BEAKER) 7.6 K/ L 4.0-10.0 (test code = 775) RED BLOOD CELL COUNT (BEAKER) 3.54 M/ L 4.20-5.80 L (test code = 761) HEMOGLOBIN (BEAKER) (test code = 10.6 GM/DL 13.0-16.8 L 410) HEMATOCRIT (BEAKER) (test code = 34.2 % 36.0-50.0 L 411) MEAN CORPUSCULAR VOLUME (BEAKER) 96.6 fL 82.0-99.0 (test code = 753) MEAN CORPUSCULAR HEMOGLOBIN 29.9 pg 27.0-33.0 (BEAKER) (test code = 751) MEAN CORPUSCULAR HEMOGLOBIN CONC 31.0 GM/DL 32.0-36.0 L (BEAKER) (test code = 752) RED CELL DISTRIBUTION WIDTH 15.2 % 12.0-15.0 H (BEAKER) (test code = 412) PLATELET COUNT (BEAKER) (test 230 K/CU MM 150-430 code = 756) MEAN PLATELET VOLUME (BEAKER) 11.1 fL 6.0-11.5 (test code = 754) NUCLEATED RED BLOOD CELLS 0 /100 WBC 0-0 (BEAKER) (test code = 413) NEUTROPHILS RELATIVE PERCENT 73 % (BEAKER) (test code = 429) LYMPHOCYTES RELATIVE PERCENT 13 % (BEAKER) (test code = 430) MONOCYTES RELATIVE PERCENT 10 % (BEAKER) (test code = 431) EOSINOPHILS RELATIVE PERCENT 3 % (BEAKER) (test code = 432) BASOPHILS RELATIVE PERCENT 1 % (BEAKER) (test code = 437) NEUTROPHILS ABSOLUTE COUNT 5.55 K/ L 1.80-8.00 (BEAKER) (test code = 670) LYMPHOCYTES ABSOLUTE COUNT 0.97 K/ L 1.48-4.50 L (BEAKER) (test code = 414) MONOCYTES ABSOLUTE COUNT (BEAKER) 0.74 K/ L 0.00-1.30 (test code = 415) EOSINOPHILS ABSOLUTE COUNT 0.21 K/ L 0.00-0.50 (BEAKER) (test code = 416) BASOPHILS ABSOLUTE COUNT (BEAKER) 0.05 K/ L 0.00-0.20 (test code = 417) IMMATURE GRANULOCYTES-RELATIVE 1 % 0-0 H PERCENT (BEAKER) (test code = 2801) POCT-GLUCOSE [id number] 13:00:00 Test Item Value Reference Range Interpretation Comments POC-GLUCOSE METER 114 mg/dL 70-110 H : Notified RN/MD: TESTED (BEAKER) (test code AT [place] [address] [address] = 1538) [facility] [address]: [employer]/Techni cornelia ID = [id number] for Cony Osborne ANAEROBIC [id number] 09:52:00 Test Item Value Reference Range Interpretation Comments CULTURE (BEAKER) (test No anaerobes isolated code = 1095) Anaerobic [id number] 09:51:00 Test Item Value Reference Range Interpretation Comments Result (test code = No anaerobes isolated 6463-4) [facility] [id number] 09:51:00 Test Item Value Reference Range Interpretation Comments Result (test code = No anaerobes isolated 6463-4) [facility] [id number] 09:51:00 Test Item Value Reference Range Interpretation Comments Result (test code = No anaerobes isolated 6463-4) [facility] [id number] 09:51:00 Test Item Value Reference Range Interpretation Comments Result (test code = No anaerobes isolated 6463-4) [facility] [id number] 09:51:00 Test Item Value Reference Range Interpretation Comments Result (test code = No anaerobes isolated 6463-4) [facility] [id number] 09:51:00 Test Item Value Reference Range Interpretation Comments Result (test code = No anaerobes isolated 6463-4) [facility] [id number] 09:51:00 Test Item Value Reference Range Interpretation Comments Result (test code = No anaerobes isolated 6463-4) [facility] [id number] 09:51:00 Test Item Value Reference Range Interpretation Comments CULTURE (BEAKER) (test No anaerobes isolated code = 1095) BASIC METABOLIC [id number] 06:34:00 Test Item Value Reference Range Interpretation Comments SODIUM (BEAKER) 138 meq/L 135-148 (test code = 381) POTASSIUM (BEAKER) 4.2 meq/L 3.6-5.5 (test code = 379) CHLORIDE (BEAKER) 98 meq/L 98-106 (test code = 382) CO2 (BEAKER) (test 31 meq/L 20-29 H code = 355) BLOOD UREA NITROGEN 55 mg/dL 10-26 H (BEAKER) (test code = 354) CREATININE (BEAKER) 2.41 mg/dL 0.50-1.20 H (test code = 358) GLUCOSE RANDOM 109 mg/dL 70-110 (BEAKER) (test code = 652) CALCIUM (BEAKER) 9.0 mg/dL 8.5-10.5 (test code = 697) EGFR (BEAKER) (test 29 mL/min/1.73 ESTIMA JOSÉ LUIS GFR IS code = 1092) sq m NOT ACCURATE CREATININE CLEARANCE IN PREDICTING GLOMERULAR FILTRATION RATE . ESTIMATED GFR I S NOT APPLICABLE FOR DIALYSIS PATIEN TS. [employer] ID - [id number] ID - [id number] ID - [id number] ID - [id number] ID - [id number] ID - [id number] ID - [id number] ID - [id number] ID - [id number] ID - [id number]- GLUCOSE [id number] 06:13:00 Test Item Value Reference Range Interpretation Comments POC-GLUCOSE METER 95 mg/dL 70-110 : TESTED A T [address] (BEAKER) (test code = [address], 1538) [facility] [address]: [employer]/Techni cornelia ID = [id number] for Agustina Harrison [id number] 05:36:00 Test Item Value Reference Range Interpretation Comments MAGNESIUM (BEAKER) (test code = 1.9 mg/dL 1.5-3.0 627) [employer] ID - [id number] ID - [id number] ID - [id number] ID - [id number] W/PLT COUNT & AUTO [id number] 05:21:00 Test Item Value Reference Range Interpretation Comments WHITE BLOOD CELL COUNT (BEAKER) 7.6 K/ L 4.0-10.0 (test code = 775) RED BLOOD CELL COUNT (BEAKER) 3.65 M/ L 4.20-5.80 L (test code = 761) HEMOGLOBIN (BEAKER) (test code = 10.9 GM/DL 13.0-16.8 L 410) HEMATOCRIT (BEAKER) (test code = 35.2 % 36.0-50.0 L 411) MEAN CORPUSCULAR VOLUME (BEAKER) 96.4 fL 82.0-99.0 (test code = 753) MEAN CORPUSCULAR HEMOGLOBIN 29.9 pg 27.0-33.0 (BEAKER) (test code = 751) MEAN CORPUSCULAR HEMOGLOBIN CONC 31.0 GM/DL 32.0-36.0 L (BEAKER) (test code = 752) RED CELL DISTRIBUTION WIDTH 15.1 % 12.0-15.0 H (BEAKER) (test code = 412) PLATELET COUNT (BEAKER) (test 237 K/CU MM 150-430 code = 756) MEAN PLATELET VOLUME (BEAKER) 10.6 fL 6.0-11.5 (test code = 754) NUCLEATED RED BLOOD CELLS 0 /100 WBC 0-0 (BEAKER) (test code = 413) NEUTROPHILS RELATIVE PERCENT 68 % (BEAKER) (test code = 429) LYMPHOCYTES RELATIVE PERCENT 16 % (BEAKER) (test code = 430) MONOCYTES RELATIVE PERCENT 12 % (BEAKER) (test code = 431) EOSINOPHILS RELATIVE PERCENT 4 % (BEAKER) (test code = 432) BASOPHILS RELATIVE PERCENT 1 % (BEAKER) (test code = 437) NEUTROPHILS ABSOLUTE COUNT 5.14 K/ L 1.80-8.00 (BEAKER) (test code = 670) LYMPHOCYTES ABSOLUTE COUNT 1.21 K/ L 1.48-4.50 L (BEAKER) (test code = 414) MONOCYTES ABSOLUTE COUNT (BEAKER) 0.88 K/ L 0.00-1.30 (test code = 415) EOSINOPHILS ABSOLUTE COUNT 0.29 K/ L 0.00-0.50 (BEAKER) (test code = 416) BASOPHILS ABSOLUTE COUNT (BEAKER) 0.05 K/ L 0.00-0.20 (test code = 417) IMMATURE GRANULOCYTES-RELATIVE 1 % 0-0 H PERCENT (BEAKER) (test code = 2801) POCT-GLUCOSE [id number] 21:10:00 Test Item Value Reference Range Interpretation Comments POC-GLUCOSE METER 137 mg/dL 70-110 H : TESTED A T [facility] [address] (BEAKER) [facility] = 1538) [place] [address]: [employer]/Techni cornelia ID = [id number] for Agustina Harrison POCT-GLUCOSE [id number] 19:19:00 Test Item Value Reference Range Interpretation Comments POC-GLUCOSE METER 119 mg/dL 70-110 H : TESTED A T [address] (BEAKER) ([facility], = 1538) [place] [address]: [employer]/Techni cornelia ID = [id number] for Adrienne r, Heidy POCT-GLUCOSE [id number] 12:43:00 Test Item Value Reference Range Interpretation Comments POC-GLUCOSE METER 126 mg/dL 70-110 H : TESTED A T [facility] (BEAKER) ([facility] = [facility]38) [place] [address]: [employer]/Techni cornelia ID = [id number] for Adrienne r, Heidy POCT-GLUCOSE [id number] 06:47:00 Test Item Value Reference Range Interpretation Comments POC-GLUCOSE METER 132 mg/dL 70-110 H : TESTED A T [address] (BEAKER) (test code [address], = 1538) [facility] [place] [address]: [employer]/Techni cornelia ID = [id number] for Zackary Bustamante si BASIC METABOLIC [id number] 04:59:00 Test Item Value Reference Range Interpretation Comments SODIUM (BEAKER) 140 meq/L 135-148 (test code = 381) POTASSIUM (BEAKER) 4.3 meq/L 3.6-5.5 (test code = 379) CHLORIDE (BEAKER) 99 meq/L 98-106 (test code = 382) CO2 (BEAKER) (test 32 meq/L 20-29 H code = 355) BLOOD UREA NITROGEN 50 mg/dL 10-26 H (BEAKER) (test code = 354) CREATININE (BEAKER) 2.34 mg/dL 0.50-1.20 H (test code = 358) GLUCOSE RANDOM 152 mg/dL 70-110 H (BEAKER) (test code = 652) CALCIUM (BEAKER) 9.0 mg/dL 8.5-10.5 (test code = 697) EGFR (BEAKER) (test 30 mL/min/1.73 ESTIMA JOSÉ LUIS GFR IS code = 1092) sq m NOT ACCURATE CREATININE CLEARANCE IN PREDICTING GLOMERULAR FILTRATION RATE . ESTIMATED GFR I S NOT APPLICABLE FOR DIALYSIS PATIEN TS. Boatswain'S Mate ID - [id number] ID - [id number] ID - [id number] ID - gdld36Hhfdlncd ID - [id number] ID - [id number] ID - [id number] ID - mhtb67Xpthzlko ID - xifw73Riqpmsri ID - [id number] 04:44:00 Test Item Value Reference Range Interpretation Comments MAGNESIUM (BEAKER) (test code = 2.0 mg/dL 1.5-3.0 627) Boatswain'S Mate ID - [id number] ID - [id number] ID - [id number] ID - [id number] CBC W/PLT COUNT & AUTO [id number] 04:30:00 Test Item Value Reference Range Interpretation Comments WHITE BLOOD CELL COUNT (BEAKER) 6.5 K/ L 4.0-10.0 (test code = 775) RED BLOOD CELL COUNT (BEAKER) 3.72 M/ L 4.20-5.80 L (test code = 761) HEMOGLOBIN (BEAKER) (test code = 11.0 GM/DL 13.0-16.8 L 410) HEMATOCRIT (BEAKER) (test code = 36.2 % 36.0-50.0 411) MEAN CORPUSCULAR VOLUME (BEAKER) 97.3 fL 82.0-99.0 (test code = 753) MEAN CORPUSCULAR HEMOGLOBIN 29.6 pg 27.0-33.0 (BEAKER) (test code = 751) MEAN CORPUSCULAR HEMOGLOBIN CONC 30.4 GM/DL 32.0-36.0 L (BEAKER) (test code = 752) RED CELL DISTRIBUTION WIDTH 15.4 % 12.0-15.0 H (BEAKER) (test code = 412) PLATELET COUNT (BEAKER) (test 242 K/CU MM 150-430 code = 756) MEAN PLATELET VOLUME (BEAKER) 11.0 fL 6.0-11.5 (test code = 754) NUCLEATED RED BLOOD CELLS 0 /100 WBC 0-0 (BEAKER) (test code = 413) NEUTROPHILS RELATIVE PERCENT 70 % (BEAKER) (test code = 429) LYMPHOCYTES RELATIVE PERCENT 16 % (BEAKER) (test code = 430) MONOCYTES RELATIVE PERCENT 10 % (BEAKER) (test code = 431) EOSINOPHILS RELATIVE PERCENT 3 % (BEAKER) (test code = 432) BASOPHILS RELATIVE PERCENT 1 % (BEAKER) (test code = 437) NEUTROPHILS ABSOLUTE COUNT 4.51 K/ L 1.80-8.00 (BEAKER) (test code = 670) LYMPHOCYTES ABSOLUTE COUNT 1.03 K/ L 1.48-4.50 L (BEAKER) (test code = 414) MONOCYTES ABSOLUTE COUNT (BEAKER) 0.66 K/ L 0.00-1.30 (test code = 415) EOSINOPHILS ABSOLUTE COUNT 0.21 K/ L 0.00-0.50 (BEAKER) (test code = 416) BASOPHILS ABSOLUTE COUNT (BEAKER) 0.06 K/ L 0.00-0.20 (test code = 417) IMMATURE GRANULOCYTES-RELATIVE 0 % 0-0 PERCENT (BEAKER) (test code = 2801) POCT-GLUCOSE [id number] 23:23:00 Test Item Value Reference Range Interpretation Comments POC-GLUCOSE METER 156 mg/dL 70-110 H : TESTED A T [facility] [address] (BEAKER) (test code [address], = 1538) [place] [id number]: Boatswain'S Mate/Techni cornelia ID = [id number] for Zackary Bustamante si POCT-GLUCOSE [id number] 18:35:00 Test Item Value Reference Range Interpretation Comments POC-GLUCOSE METER 137 mg/dL 70-110 H : TESTED A T [address] (BEAKER) (test code [address], = 1538) [place] [id number]: Boatswain'S Mate/Techni cornelia ID = [id number] for Adrienne rJadae POCT-GLUCOSE [id number] 13:42:00 Test Item Value Reference Range Interpretation Comments POC-GLUCOSE METER 109 mg/dL 70-110 : TESTED A T [address] (BEAKER) (test code [address], = 1538) [place] [id number]: Boatswain'S Mate/Techni cornelia ID = [id number] for Adrienne r, Heidy RAD, FOOT, MIN 3 VIEWS, [id number] 09:06:00Reason for exam:->s/p 5th metatarsal head resection [facility] : 1975 Sex: MFINAL REPORT History: Fifth metatarsal head resection. FINDINGS: Left foot series, two views: Compared with September 23, 2020, post surgical changes are seen consistent with resection of the distal aspect of the fifth metatarsal. Other visible bones remain unremarkable. Joint spaces are intact. Soft tissues surrounding the surgical site are swollen. Soft tissues are otherwise unremarkable. IMPRESSION: 1. Unremarkable postoperative left foot. Signed: Jerad Gleason Verified Date/Time: 09/26/2020 09:06:00 Reading Location: [facility] Radiology Reading Room XR foot 3 views [id number] 09:06:00 Interface, External Ris In - 09/26/2020 9:08 AM CDTFINAL REPORT History: Fifth metatarsal head resection. FINDINGS: Left foot series, two views: Compared with September 23, 2020, post surgical changes are seen consistent with resection of the distal aspect of the fifth metatarsal. Other visible bones remain unremarkable. Joint spaces are intact. Soft tissues surrounding the surgical site are swollen. Soft tissues are otherwise unremarkable. IMPRESSION: 1. Unremarkable postoperative left foot. Signed: Jerad Gleason Verified Date/Time: 09/26/2020 09:06:00 Reading Location: [facility] [id number] 09:06:00Interface, External Ris In - 09/26/2020 9:08 AM CDTFINAL REPORT History: Fifth metatarsal head resection. FINDINGS: Left foot series, two views: Compared with September 23, 2020, post surgical changes are seen consistent with resection of the distal aspect of the fifth metatarsal. Other visible bones remain unremarkable. Joint spaces are intact. Soft tissues surrounding the surgical site are swollen. Soft tissues are otherwise unremarkable. IMPRESSION: 1. Unremarkable postoperative left foot. Signed: Jerad Gleason Verified Date/Time: 09/26/2020 09:06:00 Reading Location: [facility]iology [facility] [id number] 09:06:00Interface, External Ris In - 09/26/2020 9:08 AM CDTFINAL REPORT History: Fifth metatarsal head resection. FINDINGS: Left foot series, two views: Compared with September 23, 2020, post surgical changes are seen consistent with resection of the distal aspect of the fifth metatarsal. Other visible bones remain unremarkable. Joint spaces are intact. Soft tissues surrounding the surgical site are swollen. Soft tissues are otherwise unremarkable. IMPRESSION: 1. Unremarkable postoperative left foot. Signed: Jerad Gleason Verified Date/Time: 09/26/2020 09:06:00 Reading Location: [facility] Radiology [facility] [place] views [id number] 09:06:00Interface, External Ris In - 09/26/2020 9:08 AM CDTFINAL REPORT History: Fifth metatarsal head resection. FINDINGS: Left foot series, two views: Compared with September 23, 2020, post surgical changes are seen consistent with resection of the distal aspect of the fifth metatarsal. Other visible bones remain unremarkable. Joint spaces are intact. Soft tissues surrounding the surgical site are swollen. Soft tissues are otherwise unremarkable. IMPRESSION: 1. Unremarkable postoperative left foot. Signed: Jerad Gleaosn Verified Date/Time: 09/26/2020 09:06:00 Reading Location: [facility] Radiology [facility] [place] [id number] 08:47:00 Test Item Value Reference Range Interpretation Comments POC-GLUCOSE METER 134 mg/dL 70-110 H : Notified RN/MD: TESTED (BEAKER) (test code AT [facility] [address] [place] [address] = 1538) [facility] [address]: Boatswain'S Mate/Techni cornelia ID = [id number] for Marzena Ponce BASIC METABOLIC [id number] 06:13:00 Test Item Value Reference Range Interpretation Comments SODIUM (BEAKER) 139 meq/L 135-148 (test code = 381) POTASSIUM (BEAKER) 4.2 meq/L 3.6-5.5 (test code = 379) CHLORIDE (BEAKER) 98 meq/L 98-106 (test code = 382) CO2 (BEAKER) (test 34 meq/L 20-29 H code = 355) BLOOD UREA NITROGEN 48 mg/dL 10-26 H (BEAKER) (test code = 354) CREATININE (BEAKER) 1.85 mg/dL 0.50-1.20 H (test code = 358) GLUCOSE RANDOM 154 mg/dL 70-110 H (BEAKER) (test code = 652) CALCIUM (BEAKER) 9.0 mg/dL 8.5-10.5 (test code = 697) EGFR (BEAKER) (test 40 mL/min/1.73 ESTIMA JOSÉ LUIS GFR IS code = 1092) sq m NOT ACCURATE CREATININE CLEARANCE IN PREDICTING GLOMERULAR FILTRATION RATE . ESTIMATED GFR I S NOT APPLICABLE FOR DIALYSIS PATIEN TS. Boatswain'S Mate ID - [id number] ID - [id number] ID - [id number] ID - [id number] ID - wwfl47Hqoiaxmo ID - mzab71Xufopvro ID - ldil97Lkmbyvpe ID - ncmr89Spmezaah ID - [id number] ID - [id number] 06:08:00 Test Item Value Reference Range Interpretation Comments MAGNESIUM (BEAKER) (test code = 2.2 mg/dL 1.5-3.0 627) Boatswain'S Mate ID - [id number] ID - [id number] ID - [id number] ID - [id number] B-type Natriuretic Factor (BNP)2020-09-26 06:01:00 Test Item Value Reference Range Interpretation Comments BNP (test code = 73160-2) 929 pg/mL 0-100 H ISSA (test code = ISSA) Boatswain'S Mate ID - [id number] Lab Interpretation (test Abnormal code = 97020-3) [facility]2020-09-26 06:01:00 Test Item Value Reference Range Interpretation Comments BNP (test code = 32893-2) 929 pg/mL 0-100 H ISSA (test code = ISSA) Boatswain'S Mate ID - [id number] Lab Interpretation (test Abnormal code = 70481-9) [facility] (BNP)2020-09-26 06:01:00 Test Item Value Reference Range Interpretation Comments BNP (test code = 31945-3) 929 pg/mL 0-100 H ISSA (test code = ISSA) Boatswain'S Mate ID - [id number] Lab Interpretation (test Abnormal code = 34385-3) [facility] (BNP)2020-09-26 06:01:00 Test Item Value Reference Range Interpretation Comments BNP (test code = 81873-2) 929 pg/mL 0-100 H ISSA (test code = ISSA) Boatswain'S Mate ID - [id number] Lab Interpretation (test Abnormal code = 05011-7) [facility] (BNP)2020-09-26 06:01:00 Test Item Value Reference Range Interpretation Comments BNP (test code = 62879-1) 929 pg/mL 0-100 H ISSA (test code = ISSA) Boatswain'S Mate ID - [id number] Lab Interpretation (test Abnormal code = 00105-0) [facility] (BNP)2020-09-26 06:01:00 Test Item Value Reference Range Interpretation Comments BNP (test code = 27507-5) 929 pg/mL 0-100 H ISSA (test code = ISSA) Boatswain'S Mate ID - [id number] Lab Interpretation (test Abnormal code = 44681-9) [facility] (BNP)2020-09-26 06:01:00 Test Item Value Reference Range Interpretation Comments BNP (test code = 63939-4) 929 pg/mL 0-100 H ISSA (test code = ISSA) Boatswain'S Mate ID - [id number] Lab Interpretation (test Abnormal code = 68163-9) [facility] NATRIURET[facility] FACTOR (BNP)2020-09-26 06:01:00 Test Item Value Reference Range Interpretation Comments B-TYPE NATRIURETIC PEPTIDE (BEAKER) 929 pg/mL 0-100 H (test code = 700) Boatswain'S Mate ID - [id number] W/PLT COUNT & AUTO [id number] 05:44:00 Test Item Value Reference Range Interpretation Comments WHITE BLOOD CELL COUNT (BEAKER) 6.3 K/ L 4.0-10.0 (test code = 775) RED BLOOD CELL COUNT (BEAKER) 3.77 M/ L 4.20-5.80 L (test code = 761) HEMOGLOBIN (BEAKER) (test code = 11.2 GM/DL 13.0-16.8 L 410) HEMATOCRIT (BEAKER) (test code = 36.0 % 36.0-50.0 411) MEAN CORPUSCULAR VOLUME (BEAKER) 95.5 fL 82.0-99.0 (test code = 753) MEAN CORPUSCULAR HEMOGLOBIN 29.7 pg 27.0-33.0 (BEAKER) (test code = 751) MEAN CORPUSCULAR HEMOGLOBIN CONC 31.1 GM/DL 32.0-36.0 L (BEAKER) (test code = 752) RED CELL DISTRIBUTION WIDTH 15.4 % 12.0-15.0 H (BEAKER) (test code = 412) PLATELET COUNT (BEAKER) (test 260 K/CU MM 150-430 code = 756) MEAN PLATELET VOLUME (BEAKER) 10.9 fL 6.0-11.5 (test code = 754) NUCLEATED RED BLOOD CELLS 0 /100 WBC 0-0 (BEAKER) (test code = 413) NEUTROPHILS RELATIVE PERCENT 65 % (BEAKER) (test code = 429) LYMPHOCYTES RELATIVE PERCENT 19 % (BEAKER) (test code = 430) MONOCYTES RELATIVE PERCENT 10 % (BEAKER) (test code = 431) EOSINOPHILS RELATIVE PERCENT 5 % (BEAKER) (test code = 432) BASOPHILS RELATIVE PERCENT 1 % (BEAKER) (test code = 437) NEUTROPHILS ABSOLUTE COUNT 4.08 K/ L 1.80-8.00 (BEAKER) (test code = 670) LYMPHOCYTES ABSOLUTE COUNT 1.17 K/ L 1.48-4.50 L (BEAKER) (test code = 414) MONOCYTES ABSOLUTE COUNT (BEAKER) 0.62 K/ L 0.00-1.30 (test code = 415) EOSINOPHILS ABSOLUTE COUNT 0.28 K/ L 0.00-0.50 (BEAKER) (test code = 416) BASOPHILS ABSOLUTE COUNT (BEAKER) 0.06 K/ L 0.00-0.20 (test code = 417) IMMATURE GRANULOCYTES-RELATIVE 1 % 0-0 H PERCENT (BEAKER) (test code = 2801) POCT-GLUCOSE [id number] 21:22:00 Test Item Value Reference Range Interpretation Comments POC-GLUCOSE METER 162 mg/dL 70-110 H : TESTED A T [facility] [address] (BEAKER) (test code [address], = 1538) [place] [id number]: Boatswain'S Mate/Techni cornelia ID = [id number] for Agustina Harrison POCT-GLUCOSE [id number] 16:27:00 Test Item Value Reference Range Interpretation Comments POC-GLUCOSE METER 151 mg/dL 70-110 H : TESTED A T [address] (BEAKER) (test code [address], = 1538) [place] [id number]: Boatswain'S Mate/Techni cornelia ID = [id number] for Judy borden, Ayinor POCT-GLUCOSE [id number] 11:32:00 Test Item Value Reference Range Interpretation Comments POC-GLUCOSE METER 104 mg/dL 70-110 : TESTED A T [address] (BEAKER) (test code [address], = 1538) [place] [address]: Boatswain'S Mate/Techni cornelia ID = [id number] for Judy suha, Ayinor POCT-GLUCOSE [id number] 06:17:00 Test Item Value Reference Range Interpretation Comments POC-GLUCOSE METER 112 mg/dL 70-110 H : TESTED A T [facility] [address] (BEAKER) [facility] [address] [address], = [address]38) [place] [address]: Boatswain'S Mate/Techni cornelia ID = [id number] for Lani Kat [id number] 05:39:00 Test Item Value Reference Range Interpretation Comments MAGNESIUM (BEAKER) (test code = 1.9 mg/dL 1.5-3.0 627) Boatswain'S Mate ID - LITOOperator ID - LITOOperator ID - LITOOperator ID - LITOBASIC METABOLIC [id number] 05:38:00 Test Item Value Reference Range Interpretation Comments SODIUM (BEAKER) 140 meq/L 135-148 (test code = 381) POTASSIUM (BEAKER) 3.9 meq/L 3.6-5.5 (test code = 379) CHLORIDE (BEAKER) 97 meq/L 98-106 L (test code = 382) CO2 (BEAKER) (test 35 meq/L 20-29 H code = 355) BLOOD UREA NITROGEN 50 mg/dL 10-26 H (BEAKER) (test code = 354) CREATININE (BEAKER) 1.89 mg/dL 0.50-1.20 H (test code = 358) GLUCOSE RANDOM 113 mg/dL 70-110 H (BEAKER) (test code = 652) CALCIUM (BEAKER) 8.3 mg/dL 8.5-10.5 L (test code = 697) EGFR (BEAKER) (test 39 mL/min/1.73 ESTIMA JOSÉ LUIS GFR IS code = 1092) sq m NOT ACCURATE CREATININE CLEARANCE IN PREDICTING GLOMERULAR FILTRATION RATE . ESTIMATED GFR I S NOT APPLICABLE FOR DIALYSIS PATIEN TS. Boatswain'S Mate ID - LITOOperator ID - LITOOperator ID - LITOOperator ID - LITOOperator ID - LITOOperator ID - LITOOperator ID - LITOOperator ID - LITOOperator ID - LITOOperator ID - LITOCBC W/PLT COUNT & AUTO [id number] 05:20:00 Test Item Value Reference Range Interpretation Comments WHITE BLOOD CELL COUNT (BEAKER) 6.9 K/ L 4.0-10.0 (test code = 775) RED BLOOD CELL COUNT (BEAKER) 3.61 M/ L 4.20-5.80 L (test code = 761) HEMOGLOBIN (BEAKER) (test code = 10.9 GM/DL 13.0-16.8 L 410) HEMATOCRIT (BEAKER) (test code = 34.1 % 36.0-50.0 L 411) MEAN CORPUSCULAR VOLUME (BEAKER) 94.5 fL 82.0-99.0 (test code = 753) MEAN CORPUSCULAR HEMOGLOBIN 30.2 pg 27.0-33.0 (BEAKER) (test code = 751) MEAN CORPUSCULAR HEMOGLOBIN CONC 32.0 GM/DL 32.0-36.0 (BEAKER) (test code = 752) RED CELL DISTRIBUTION WIDTH 15.3 % 12.0-15.0 H (BEAKER) (test code = 412) PLATELET COUNT (BEAKER) (test 257 K/CU MM 150-430 code = 756) MEAN PLATELET VOLUME (BEAKER) 10.9 fL 6.0-11.5 (test code = 754) NUCLEATED RED BLOOD CELLS 0 /100 WBC 0-0 (BEAKER) (test code = 413) NEUTROPHILS RELATIVE PERCENT 68 % (BEAKER) (test code = 429) LYMPHOCYTES RELATIVE PERCENT 17 % (BEAKER) (test code = 430) MONOCYTES RELATIVE PERCENT 10 % (BEAKER) (test code = 431) EOSINOPHILS RELATIVE PERCENT 4 % (BEAKER) (test code = 432) BASOPHILS RELATIVE PERCENT 1 % (BEAKER) (test code = 437) NEUTROPHILS ABSOLUTE COUNT 4.68 K/ L 1.80-8.00 (BEAKER) (test code = 670) LYMPHOCYTES ABSOLUTE COUNT 1.17 K/ L 1.48-4.50 L (BEAKER) (test code = 414) MONOCYTES ABSOLUTE COUNT (BEAKER) 0.72 K/ L 0.00-1.30 (test code = 415) EOSINOPHILS ABSOLUTE COUNT 0.24 K/ L 0.00-0.50 (BEAKER) (test code = 416) BASOPHILS ABSOLUTE COUNT (BEAKER) 0.05 K/ L 0.00-0.20 (test code = 417) IMMATURE GRANULOCYTES-RELATIVE 1 % 0-0 H PERCENT (BEAKER) (test code = 2801) POCT-GLUCOSE [id number] 20:48:00 Test Item Value Reference Range Interpretation Comments POC-GLUCOSE METER 167 mg/dL 70-110 H : TESTED A T [address] (BEAKER) (test code [address], = 1538) [place] [address]: Boatswain'S Mate/Techni cornelia ID = [id number] for Lani Kat POCT-GLUCOSE [id number] 17:48:00 Test Item Value Reference Range Interpretation Comments POC-GLUCOSE METER 260 mg/dL 70-110 H : TESTED A T [address] (BEAKER) (test code [address], = 1538) [place] [id number]: Boatswain'S Mate/Techni cornelia ID = [id number] for Heidy Martin ARTERIAL DOPPLER LEGS, [id number] 13:42:00Reason for exam:- >osteomyelitis left foot [facility] : 1975 Sex: MFINAL REPORT BILATERAL LOWER EXTREMITY ARTERIAL DOPPLER EVALUATION History provided: Osteomyelitis, diabetes Grayscale, color Doppler, and spectral wave form analysis were performed. Evaluation of the right lower extremity shows triphasic flow at the common femoral artery, but only monophasic flow beyond this point from the superficial femoral artery to the foot. Moderate flow acceleration is identified in the proximal superficial femoral artery indicating stenosis.Poor flow velocities are seen distal to this level, indicating diffuse vascular disease. Evaluation of the left lower extremity shows triphasic waveforms from the common femoral artery through the distal superficial femoral artery, but only monophasic flow from the popliteal artery through the foot. Fl ow acceleration is identified within the proximal and mid superficial femoral artery indicating stenosis. Poor flow velocities throughout the left calf. Vascular calcification is evident consistent with known diabetes mellitus. IMPRESSION: Abnormal examination consistent with diffuse peripheral vascular disease. Signed: Jerome Ortiz MDReport Verified Date/Time: 09/24/2020 13:42:37 Reading Location: [facility] Radiology Reading Room Arterial Doppler Legs [id number] 13:42:00Interface, External Ris In - 09/24/2020 1:44 PM CDTFINAL REPORT BILATERAL LOWER EXTREMITY ARTERIAL DOPPLER EVALUATION History provided: Osteomyelitis, diabetes Grayscale, color Doppler, and spectral wave form analysis were performed. Evaluation of the right lower extremity shows triphasic flow at the common femoral artery, but only monophasic flow beyond this point from the superficial femoral artery to the foot. Moderate flow acceleration is identified in the proximal superficial femoral artery indicating stenosis. Poor flow velocities are seen distal to this level, indicating diffuse vascular disease. Evaluation of the left lower extremity shows triphasic waveforms from the common femoral artery through the distal superficial femoral artery, but only monophasic flow fromthe popliteal artery through the foot. Flow acceleration is identified within the proximal and mid superficial femoral artery indicating stenosis. Poor flow velocities throughout the left calf. Vascular calcification is evident consistent with known diabetes mellitus. IMPRESSION: Abnormal examination consistent with diffuse peripheral vascular disease. Signed: Jerome Ortiz MDReport Verified Date/Time: 09/24/2020 13:42:37 Reading Location: [facility] Radiology Reading [facility] [id number] 13:42:00Interface, External Ris In - 09/24/2020 1:44 PM CDTFINAL REPORT BILATERAL LOWER EXTREMITY ARTERIAL DOPPLER EVALUATION History provided: Osteomyelitis, diabetes Grayscale, color Doppler, and spectral wave form analysis were performed. Evaluation of the right lower extremity shows triphasic flow at the common femoral artery, but only monophasic flow beyond this point from the superficial femoral artery to the foot. Moderate flow acceleration is identified in the proximal superficial femoral artery indicating stenosis. Poor flow velocities are seen distal to this level, indicating diffuse vascular disease. Evaluation of the left lower extremity shows triphasic waveforms from the common femoral artery through the distal superficial femoral artery, but only monophasic flow fromthe popliteal artery through the foot. Flow acceleration is identified within the proximal and mid superficial femoral artery indicating stenosis. Poor flow velocities throughout the left calf. Vascular calcification is evident consistent with known diabetes mellitus. IMPRESSION: Abnormal examination consistent with diffuse peripheral vascular disease. Signed: Jerome Ortiz MDRdeborahort Verified Date/Time: 09/24/2020 13:42:37 Reading Location: [facility] Radiology Reading Room [facility] Legs [id number] 13:42:00Interface, External Ris In - 09/24/2020 1:44 PM CDTFINAL REPORT BILATERAL LOWER EXTREMITY ARTERIAL DOPPLER EVALUATION History provided: Osteomyelitis, diabetes Grayscale, color Doppler, and spectral wave form analysis were performed. Evaluation of the right lower extremity shows triphasic flow at the common femoral artery, but only monophasic flow beyond this point from the superficial femoral artery to the foot. Moderate flow acceleration is identified in the proximal superficial femoral artery indicating stenosis. Poor flow velocities are seen distal to this level, indicating diffuse vascular disease. Evaluation of the left lower extremity shows triphasic waveforms from the common femoral artery through the distal superficial femoral artery, but only monophasic flow fromthe popliteal artery through the foot. Flow acceleration is identified within the proximal and mid superficial femoral artery indicating stenosis. Poor flow velocities throughout the left calf. Vascular calcification is evident consistent with known diabetes mellitus. IMPRESSION: Abnormal examination consistent with diffuse peripheral vascular disease. Signed: Jerome Ortiz Verified Date/Time: 09/24/2020 13:42:37 Reading Location: [facility] Radiology Reading Room [facility] California[facility] Doppler Legs [id number] 13:42:00Interface, External Ris In - 09/24/2020 1:44 PM CDTFINAL REPORT BILATERAL LOWER EXTREMITY ARTERIAL DOPPLER EVALUATION History provided: Osteomyelitis, diabetes Grayscale, color Doppler, and spectral wave form analysis were performed. Evaluation of the right lower extremity shows triphasic flow at the common femoral artery, but only monophasic flow beyond this point from the superficial femoral artery to the foot. Moderate flow acceleration is identified in the proximal superficial femoral artery indicating stenosis. Poor flow velocities are seen distal to this level, indicating diffuse vascular disease. Evaluation of the left lower extremity shows triphasic waveforms from the common femoral artery through the distal superficial femoral artery, but only monophasic flow fromthe popliteal artery through the foot. Flow acceleration is identified within the proximal and mid superficial femoral artery indicating stenosis. Poor flow velocities throughout the left calf. Vascular calcification is evident consistent with known diabetes mellitus. IMPRESSION: Abnormal examination consistent with diffuse peripheral vascular disease. Signed: Jerome Ortiz Verified Date/Time: 09/24/2020 13:42:37 Reading Location: [facility] Radiology Reading Room [facility] CaliforniaUrea Nitrogen, random [id number] 10:42:00 Test Item Value Reference Range Interpretation Comments Urea Nitrogen, Ur 236 mg/dL (test code = 3095-7) ISSA (test code = Reference Range: No ISSA) NormalsOperator ID - ALEXY Carrasquillo John George [facility] random [id number] 10:42:00 Test Item Value Reference Range Interpretation Comments Urea Nitrogen, Ur 236 mg/dL (test code = 3095-7) ISSA (test code = Reference Range: No ISSA) NormalsOperator [facility] [id number] 10:42:00 Test Item Value Reference Range Interpretation Comments Urea Nitrogen, Ur 236 mg/dL (test code = 3095-7) ISSA (test code = Reference Range: No ISSA) NormalsOperator ID - [facility], [facility] [id number] 10:42:00 Test Item Value Reference Range Interpretation Comments Urea Nitrogen, Ur 236 mg/dL (test code = 3095-7) ISSA (test code = Reference Range: No ISSA) NormalsOperator [place] [facility], [facility] [id number] 10:42:00 Test Item Value Reference Range Interpretation Comments Urea Nitrogen, Ur 236 mg/dL (test code = 3095-7) ISSA (test code = Reference Range: No ISSA) NormalsOperator [place] [facility] [id number] 10:42:00 Test Item Value Reference Range Interpretation Comments Urea Nitrogen, Ur 236 mg/dL (test code = 3095-7) ISSA (test code = Reference Range: No ISSA) NormalsOperator [facility] [id number] 10:42:00 Test Item Value Reference Range Interpretation Comments Urea Nitrogen, Ur 236 mg/dL (test code = 3095-7) ISSA (test code = Reference Range: No ISSA) NormalsOperator [place] [facility]URE[facility] NITROGEN, RANDOM [id number] 10:42:00 Test Item Value Reference Range Interpretation Comments UREA NITROGEN URINE (BEAKER) (test 236 mg/dL code = 538) Reference Range: No NormalsOperator [facility] CVitamin D, 83-[id number] 10:38:00 Test Item Value Reference Range Interpretation Comments Vitamin D 25-Hydroxy 7.3 ng/mL 6.6-49.9 (test code = 2764) ISSA (test code = ISSA) Effective 01/06/2017: Reference Range ChangeNew: 6.6-49.9 ng/mL Previous: 13.0-47.8 ng/mL Recommended Vitamin D Target Range: 30.0-40.0 ng/mLOperator ID - ALEXY C Lab Interpretation (test Normal code = 44715-2) [facility], [id number] 10:38:00 Test Item Value Reference Range Interpretation Comments Vitamin D 25-Hydroxy 7.3 ng/mL 6.6-49.9 (test code = 2764) ISSA (test code = ISSA) Effective 01/06/2017: Reference Range ChangeNew: 6.6-49.9 ng/mL Previous: 13.0-47.8 ng/mL Recommended Vitamin D Target Range: 30.0-40.0 ng/mLOperator ID - ALEXY C Lab Interpretation (test Normal code = 27908-6) [facility]ilionVitamin D, 28-[id number] 10:38:00 Test Item Value Reference Range Interpretation Comments Vitamin D 25-Hydroxy 7.3 ng/mL 6.6-49.9 (test code = 2764) ISSA (test code = ISSA) Effective 01/06/2017: Reference Range ChangeNew: 6.6-49.9 ng/mL Previous: 13.0-47.8 ng/mL Recommended Vitamin D Target Range: 30.0-40.0 ng/mLOperator ID - ALEXY C Lab Interpretation (test Normal code = 98537-3) [facility]ilionVitamin D, [id number] 10:38:00 Test Item Value Reference Range Interpretation Comments Vitamin D 25-Hydroxy 7.3 ng/mL 6.6-49.9 (test code = 2764) ISSA (test code = ISSA) Effective 01/06/2017: Reference Range ChangeNew: 6.6-49.9 ng/mL Previous: 13.0-47.8 ng/mL Recommended Vitamin D Target Range: 30.0-40.0 ng/mLOperator ID - ALEXY C Lab Interpretation (test Normal code = 16364-1) [facility]ilionV[facility] D, 16-[id number] 10:38:00 Test Item Value Reference Range Interpretation Comments Vitamin D 25-Hydroxy 7.3 ng/mL 6.6-49.9 (test code = 2764) ISSA (test code = ISSA) Effective 01/06/2017: Reference Range ChangeNew: 6.6-49.9 ng/mL Previous: 13.0-47.8 ng/mL Recommended Vitamin D Target Range: 30.0-40.0 ng/mLOperator ID Mar C Lab Interpretation (test Normal code = 84635-1) [facility]ilionVitamin D, [id number] 10:38:00 Test Item Value Reference Range Interpretation Comments Vitamin D 25-Hydroxy 7.3 ng/mL 6.6-49.9 (test code = 2764) ISSA (test code = ISSA) Effective 01/06/2017: Reference Range ChangeNew: 6.6-49.9 ng/mL Previous: 13.0-47.8 ng/mL Recommended Vitamin D Target Range: 30.0-40.0 ng/mLOperator Mar C Lab Interpretation (test Normal code = 70195-3) [facility]ilionV[facility]amin D, [id number] 10:38:00 Test Item Value Reference Range Interpretation Comments Vitamin D 25-Hydroxy 7.3 ng/mL 6.6-49.9 (test code = 2764) ISSA (test code = ISSA) Effective 01/06/2017: Reference Range ChangeNew: 6.6-49.9 ng/mL Previous: 13.0-47.8 ng/mL Recommended Vitamin D Target Range: 30.0-40.0 ng/mLOperator Mar C Lab Interpretation (test Normal code = 90261-2) [facility]ilionVITAMIN D, [id number] 10:38:00 Test Item Value Reference Range Interpretation Comments VITAMIN D 25-OH (BEAKER) (test code 7.3 ng/mL 6.6-49.9 = 2764) Effective 01/06/2017: Reference Range ChangeNew: 6.6-49.9 ng/mL Previous: 13.0-47.8 ng/mLRecommended Vitamin D Target Range: 30.0-40.0 ng/mLOperator ID - ALEXY CPTH, [id number] 07:31:00 Test Item Value Reference Range Interpretation Comments PTH (test code = 2731-8) 271.6 pg/mL 15-90 H ISSA (test code = ISSA) [employer] Mate ID - [id number] Lab Interpretation (test Abnormal code = 27402-8) [facility], [id number] 07:31:00 Test Item Value Reference Range Interpretation Comments PTH (test code = 2731-8) 271.6 pg/mL 15-90 H ISSA (test code = ISSA) [employer] Mate ID - [id number] Lab Interpretation (test Abnormal code = 52324-8) [facility], [id number] 07:31:00 Test Item Value Reference Range Interpretation Comments PTH (test code = 2731-8) 271.6 pg/mL 15-90 H ISSA (test code = ISSA) [employer] Mate ID - [id number] Lab Interpretation (test Abnormal code = 81832-2) [facility], [id number] 07:31:00 Test Item Value Reference Range Interpretation Comments PTH (test code = 2731-8) 271.6 pg/mL 15-90 H ISSA (test code = ISSA) [employer] Mate ID - [id number] Lab Interpretation (test Abnormal code = 79892-1) [facility], [id number] 07:31:00 Test Item Value Reference Range Interpretation Comments PTH (test code = 2731-8) 271.6 pg/mL 15.0-90.0 H ISSA (test code = ISSA) [employer] Mate ID - [id number] Lab Interpretation (test Abnormal code = 88978-9) [facility], [id number] 07:31:00 Test Item Value Reference Range Interpretation Comments PTH (test code = 2731-8) 271.6 pg/mL 15.0-90.0 H ISSA (test code = ISSA) [employer] Mate ID - [id number] Lab Interpretation (test Abnormal code = 24657-9) [facility], [id number] 07:31:00 Test Item Value Reference Range Interpretation Comments PTH (test code = 2731-8) 271.6 pg/mL 15.0-90.0 H ISSA (test code = ISSA) [employer] Mate ID - [id number] Lab Interpretation (test Abnormal code = 46166-1) [facility]ilionPTH, [id number] 07:31:00 Test Item Value Reference Range Interpretation Comments PARATHYROID HORMONE INTACT 271.6 pg/mL 15.0-90.0 H (CECILIO) (test code = 577) [employer] ID - [id number] 06:45:00 Test Item Value Reference Range Interpretation Comments POC-GLUCOSE METER 122 mg/dL 70-110 H : Notified RN/MD: TESTED (CECILIO) (test code AT [facility] [address] = 1538) [facility] [address]: Bo[employer]'S Mate/Techni cornelia ID = [id number] for Coco Griffin Iron, TIBC, % sat. (without ferritin)2020-09-24 06:41:00 Test Item Value Reference Range Interpretation Comments Iron (test code = 43.0 ug/dL 45-170 L 2498-4) TIBC (test code = 189 ug/dL 250-550 L 2500-7) Iron % Saturation (test 23 % 20-55 code = 2502-3) ISSA (test code = ISSA) [employer] Mate ID - LITOOperator ID - ARCHIE Lab Interpretation (test Abnormal code = 00443-0) [facility] PavilionIro, TIBC, % sat. (without ferritin)2020-09-24 06:41:00 Test Item Value Reference Range Interpretation Comments Iron (test code = 43.0 ug/dL 45-170 L 2498-4) TIBC (test code = 189 ug/dL 250-550 L 2500-7) Iron % Saturation (test 23 % 20-55 code = 2502-3) ISSA (test code = ISSA) [employer] Mate ID - LITOOperator ID - ARCHIE Lab Interpretation (test Abnormal code = 22554-0) [facility], TIBC, % sat. (without ferritin)2020-09-24 06:41:00 Test Item Value Reference Range Interpretation Comments Iron (test code = 43.0 ug/dL 45-170 L 2498-4) TIBC (test code = 189 ug/dL 250-550 L 2500-7) Iron % Saturation (test 23 % 20-55 code = 2502-3) ISSA (test code = ISSA) [employer] Mate ID - LITOOperator ID - ARCHIE Lab Interpretation (test Abnormal code = 45629-6) [facility], TIBC, % sat. (without ferritin)2020-09-24 06:41:00 Test Item Value Reference Range Interpretation Comments Iron (test code = 43.0 ug/dL 45-170 L 2498-4) TIBC (test code = 189 ug/dL 250-550 L 2500-7) Iron % Saturation (test 23 % 20-55 code = 2502-3) ISSA (test code = ISSA) [employer] Mate ID - LITOOperator ID - ARCHIE Lab Interpretation (test Abnormal code = 82720-9) [facility], TIBC, % sat. (without ferritin)2020-09-24 06:41:00 Test Item Value Reference Range Interpretation Comments Iron (test code = 43.0 ug/dL 45.0-170.0 L 2498-4) TIBC (test code = 189 ug/dL 250-550 L 2500-7) Iron % Saturation (test 23 % 20-55 code = 2502-3) ISSA (test code = ISSA) [employer] Mate ID - LITOOperator ID - ARCHIE Lab Interpretation (test Abnormal code = 67393-8) [facility], TIBC, % sat. (without ferritin)2020-09-24 06:41:00 Test Item Value Reference Range Interpretation Comments Iron (test code = 43.0 ug/dL 45.0-170.0 L 2498-4) TIBC (test code = 189 ug/dL 250-550 L 2500-7) Iron % Saturation (test 23 % 20-55 code = 2502-3) ISSA (test code = ISSA) [employer] Mate ID - LITOOperator ID - ARCHIE Lab Interpretation (test Abnormal code = 13176-5) [facility], TIBC, % sat. (without ferritin)2020-09-24 06:41:00 Test Item Value Reference Range Interpretation Comments Iron (test code = 43.0 ug/dL 45.0-170.0 L 2498-4) TIBC (test code = 189 ug/dL 250-550 L 2500-7) Iron % Saturation (test 23 % 20-55 code = 2502-3) ISSA (test code = ISSA) [employer] Mate ID - LITOOperator ID - ARCHIE Lab Interpretation (test Abnormal code = 23121-9) [facility]ilionIRON, TIBC, % SAT. (WITHOUT FERRITIN)2020-09-24 06:41:00 Test Item Value Reference Range Interpretation Comments IRON (BEAKER) (test code = 547) 43.0 ug/dL 45.0-170.0 L TOTAL IRON BINDING CAPACITY 189 ug/dL 250-550 L (BEAKER) (test code = 769) IRON % SATURATION (2) (BEAKER) 23 % 20-55 (test code = 2590) [employer] ID - LITOOperator ID - [id number] 06:23:00 Test Item Value Reference Range Interpretation Comments Ferritin (test code = 190.40 ng/mL 22322 2276-4) ISSA (test code = ISSA) [employer] Mate ID - ARCHIE Lab Interpretation (test Normal code = 22275-4) [facility]ilionFerritin2021-06-29 06:23:00 Test Item Value Reference Range Interpretation Comments Ferritin (test code = 190.40 ng/mL 22-322 2276-4) ISSA (test code = ISSA) [employer] Mate ID - ARCHIE Lab Interpretation (test Normal code = 19904-6) [facility]ilionFerritin2021-06-29 06:23:00 Test Item Value Reference Range Interpretation Comments Ferritin (test code = 190.40 ng/mL 22322 2276-4) ISSA (test code = ISSA) [employer] Mate ID - ARCHIE Lab Interpretation (test Normal code = 77892-6) [facility]ilionFerritin2021-06-29 06:23:00 Test Item Value Reference Range Interpretation Comments Ferritin (test code = 190.40 ng/mL 22-322 2276-4) ISSA (test code = ISSA) [employer] Mate ID - ARCHIE Lab Interpretation (test Normal code = 87073-2) [facility]ilionFerritin2021-06-29 06:23:00 Test Item Value Reference Range Interpretation Comments Ferritin (test code = 190.40 ng/mL 22.00-322.00 2276-4) ISSA (test code = ISSA) [employer] Mate ID - ARCHIE Lab Interpretation (test Normal code = 00493-0) [facility]ilionFerritin2021-06-29 06:23:00 Test Item Value Reference Range Interpretation Comments Ferritin (test code = 190.40 ng/mL 22.00-322.00 2276-4) ISSA (test code = ISSA) [employer] Mate ID - ARCHIE Lab Interpretation (test Normal code = 14931-2) [facility]ilionFerritin2021-06-29 06:23:00 Test Item Value Reference Range Interpretation Comments Ferritin (test code = 190.40 ng/mL 22.00-322.00 2276-4) ISSA (test code = ISSA) [employer] Mate ID - ARCHIE Lab Interpretation (test Normal code = 46220-8) [facility]ilionFERRITIN2021-06-29 06:23:00 Test Item Value Reference Range Interpretation Comments FERRITIN (BEAKER) (test code = 190.40 ng/mL 22.00-322.00 361) [employer] Mate ID - LITOBASIC METABOLIC [id number] 06:18:00 Test Item Value Reference Range Interpretation Comments SODIUM (BEAKER) 139 meq/L 135-148 (test code = 381) POTASSIUM (BEAKER) 3.7 meq/L 3.6-5.5 (test code = 379) CHLORIDE (BEAKER) 97 meq/L 98-106 L (test code = 382) CO2 (BEAKER) (test 32 meq/L 20-29 H code = 355) BLOOD UREA NITROGEN 48 mg/dL 10-26 H (BEAKER) (test code = 354) CREATININE (BEAKER) 1.88 mg/dL 0.50-1.20 H (test code = 358) GLUCOSE RANDOM 128 mg/dL 70-110 H (BEAKER) (test code = 652) CALCIUM (BEAKER) 8.6 mg/dL 8.5-10.5 (test code = 697) EGFR (BEAKER) (test 39 mL/min/1.73 ESTIMA JOSÉ LUIS GFR IS code = 1092) sq m NOT ACCURATE CREATININE CLEARANCE IN PREDICTING GLOMERULAR FILTRATION RATE . ESTIMATED GFR I S NOT APPLICABLE FOR DIALYSIS PATIEN TS. [employer] Mate ID - LITOOperator ID - LITOOperator ID - LITOOperator ID - LITOOperator ID - LITOOperator ID - LITOOperator ID - LITOOperator ID - LITOOperator ID - LITOOperator ID - [id number] 06:04:00 Test Item Value Reference Range Interpretation Comments MAGNESIUM (BEAKER) (test code = 1.6 mg/dL 1.5-3.0 627) [employer] ID - LITOOperator ID - LITOOperator ID - LITOOperator ID - LITOCBC W/PLT COUNT & AUTO [id number] 06:03:00 Test Item Value Reference Range Interpretation Comments WHITE BLOOD CELL COUNT (BEAKER) 7.6 K/ L 4.0-10.0 (test code = 775) RED BLOOD CELL COUNT (BEAKER) 3.73 M/ L 4.20-5.80 L (test code = 761) HEMOGLOBIN (BEAKER) (test code = 11.1 GM/DL 13.0-16.8 L 410) HEMATOCRIT (BEAKER) (test code = 35.2 % 36.0-50.0 L 411) MEAN CORPUSCULAR VOLUME (BEAKER) 94.4 fL 82.0-99.0 (test code = 753) MEAN CORPUSCULAR HEMOGLOBIN 29.8 pg 27.0-33.0 (BEAKER) (test code = 751) MEAN CORPUSCULAR HEMOGLOBIN CONC 31.5 GM/DL 32.0-36.0 L (BEAKER) (test code = 752) RED CELL DISTRIBUTION WIDTH 15.4 % 12.0-15.0 H (BEAKER) (test code = 412) PLATELET COUNT (BEAKER) (test 269 K/CU MM 150-430 code = 756) MEAN PLATELET VOLUME (BEAKER) 10.9 fL 6.0-11.5 (test code = 754) NUCLEATED RED BLOOD CELLS 0 /100 WBC 0-0 (BEAKER) (test code = 413) NEUTROPHILS RELATIVE PERCENT 72 % (BEAKER) (test code = 429) LYMPHOCYTES RELATIVE PERCENT 15 % (BEAKER) (test code = 430) MONOCYTES RELATIVE PERCENT 9 % (BEAKER) (test code = 431) EOSINOPHILS RELATIVE PERCENT 3 % (BEAKER) (test code = 432) BASOPHILS RELATIVE PERCENT 1 % (BEAKER) (test code = 437) NEUTROPHILS ABSOLUTE COUNT 5.46 K/ L 1.80-8.00 (BEAKER) (test code = 670) LYMPHOCYTES ABSOLUTE COUNT 1.12 K/ L 1.48-4.50 L (BEAKER) (test code = 414) MONOCYTES ABSOLUTE COUNT (BEAKER) 0.68 K/ L 0.00-1.30 (test code = 415) EOSINOPHILS ABSOLUTE COUNT 0.23 K/ L 0.00-0.50 (BEAKER) (test code = 416) BASOPHILS ABSOLUTE COUNT (BEAKER) 0.07 K/ L 0.00-0.20 (test code = 417) IMMATURE GRANULOCYTES-RELATIVE 1 % 0-0 H PERCENT (BEAKER) (test code = 2801) POCT-GLUCOSE [id number] 21:37:00 Test Item Value Reference Range Interpretation Comments POC-GLUCOSE METER 185 mg/dL 70-110 H : TESTED A T [address] (BEAKER) (test code [address], = 1538) [facility] [address]: Bo[employer] Mate/Techni cornelia ID = [id number] for Rachel Branham U/S, RENAL, [id number] 21:19:00Reason for exam:->Acute renal failure [facility] : 1975 Sex: MFINAL REPORT Ultrasound of the Kidneys Clinical History: Acute renal failure Comparison: Renal ultrasound 04/03/2020. Discussion: Sonographic evaluation of the kidneys was performed. Right kidney: 14.2 x 5.7 x 5.7 cm, with cortical thickness of 1.7 cm. Normal cortical echogenicity. No mass. No shadowing calculus. No hydronephrosis. Left kidney: 11.7 x 5.6 x 4.8 cm, with cortical thickness of 1.6 cm. Mildly increased cortical echogenicity. No mass. No shadowingcalculus. No hydronephrosis. Limited doppler evaluation of bilateral main renal arteries and veins demonstrate patency. Bladder: Distended with a prevoid volume of 256 cc. Small postvoid residual of25 cc. Impression:Mildly echogenic left kidney suggesting medical renal disease.No hydronephrosis.Small urinary bladder postvoid residual. Signed: Moose Petersen Verified Date/Time: 121:19:36 US renal [id number] 21:19:00Interface, External Ris In - 09/23/2020 9:21 PM CDTFINAL REPORT Ultrasound of the Kidneys Clinical History: Acute renal failure Comparison: Renal ultrasound 04/03/2020. Discussion: Sonographic evaluation of the kidneys was performed. Right kidney: 14.2 x 5.7 x 5.7 cm, with cortical thickness of 1.7 cm. Normal cortical echogenicity. No mass. No shadowing calculus. No hydronephrosis. Left kidney: 11.7 x 5.6 x 4.8 cm, with cortical thickness of 1.6 cm. Mildly increased cortical echogenicity. No mass. No shadowing calculus. No hydronephrosis. Limited doppler evaluation ofbilateral main renal arteries and veins demonstrate patency. Bladder: Distended with a prevoid volume of 256 cc. Small postvoid residual of 25 cc. Impression:Mildly echogenic left kidney suggesting medical renal disease.No hydronephrosis.Small urinary bladder postvoid residual. Signed: Teo Petersen Verified Date/Time: 09/23/2020 21:19:36 [facility] 2020-09-23 21:19:00Interface, External Ris In - 09/23/2020 9:21 PM CDTFINAL REPORT Ultrasound of the Kidneys Clinical History: Acute renal failure Comparison: Renal ultrasound 04/03/2020. Discussion: Sonographic evaluation of the kidneys was performed. Right kidney: 14.2 x 5.7 x 5.7 cm, with cortical thickness of 1.7 cm. Normal cortical echogenicity. No mass. No shadowing calculus. No hydronephrosis. Left kidney: 11.7 x 5.6 x 4.8 cm, with cortical thickness of 1.6 cm. Mildly increased cortical echogenicity. No mass. No shadowing calculus. No hydronephrosis. Limited doppler evaluation of bilateral main renal arteries and veins demonstrate patency. Bladder: Distended with a prevoid volume of 256 cc. Small postvoid residual of 25 cc. Impression:Mildly echogenic left kidney suggesting medical renal disease.No hydronephrosis.Small urinary bladder postvoid residual. Signed: Moose Peterseneport Verified Date/Time: 09/23/2020 21:19:36 [facility] renal [id number] 21:19:00Interface, External Ris In - 09/23/2020 9:21 PM CDTFINAL REPORT Ultrasound of the Kidneys Clinical History: Acute renal failure Comparison: Renal ultrasound 04/03/2020. Discussion: Sonographic evaluation of the kidneys was performed. Right kidney: 14.2 x 5.7 x 5.7 cm, with cortical thickness of 1.7 cm. Normal cortical echogenicity. No mass. No shadowing calculus. No hydronephrosis. Left kidney: 11.7 x 5.6 x 4.8 cm, with cortical thickness of 1.6 cm. Mildly increased cortical echogenicity. No mass. No shadowing calculus. No hydronephrosis. Limited doppler evaluation ofbilateral main renal arteries and veins demonstrate patency. Bladder: Distended with a prevoid volume of 256 cc. Small postvoid residual of 25 cc. Impression:Mildly echogenic left kidney suggesting medical renal disease.No hydronephrosis.Small urinary bladder postvoid residual. Signed: Moose Petersenort Verified Date/Time: 09/23/2020 21:19:36 [facility] renal [id number] 21:19:00Interface, External Ris In - 09/23/2020 9:21 PM CDTFINAL REPORT Ultrasound of the Kidneys Clinical History: Acute renal failure Comparison: Renal ultrasound 04/03/2020. Discussion: Sonographic evaluation of the kidneys was performed. Right kidney: 14.2 x 5.7 x 5.7 cm, with cortical thickness of 1.7 cm. Normal cortical echogenicity. No mass. No shadowing calculus. No hydronephrosis. Left kidney: 11.7 x 5.6 x 4.8 cm, with cortical thickness of 1.6 cm. Mildly increased cortical echogenicity. No mass. No shadowing calculus. No hydronephrosis. Limited doppler evaluation ofbilateral main renal arteries and veins demonstrate patency. Bladder: Distended with a prevoid volume of 256 cc. Small postvoid residual of 25 cc. Impression:Mildly echogenic left kidney suggesting medical renal disease.No hydronephrosis.Small urinary bladder postvoid residual. Signed: Moose Petersen [facility] Verified Date/Time: 09/23/2020 21:19:36 [facility] Protein, random [id number] 19:02:00 Test Item Value Reference Range Interpretation Comments Protein, Urine (test code 212 mg/dL 0-14 H = 2888-6) ISSA (test code = ISSA) Bo[employer] Mate ID - [id number] ID - [id number] Lab Interpretation (test Abnormal code = 32007-4) [facility]ilionProtein, random [id number] 19:02:00 Test Item Value Reference Range Interpretation Comments Protein, Urine (test code 212 mg/dL 0-14 H = 2888-6) ISSA (test code = ISSA) [employer] Mate ID - [id number] ID - [id number] Lab Interpretation (test Abnormal code = 55451-7) [facility]ilionProtein, random [id number] 19:02:00 Test Item Value Reference Range Interpretation Comments Protein, Urine (test code 212 mg/dL 0-14 H = 2888-6) ISSA (test code = ISSA) [employer] Mate ID - [id number] ID - [id number] Lab Interpretation (test Abnormal code = 17434-6) [facility]ilionProtein, random [id number] 19:02:00 Test Item Value Reference Range Interpretation Comments Protein, Urine (test code 212 mg/dL 0-14 H = 2888-6) ISSA (test code = ISSA) [employer] Mate ID - [id number] ID - [id number] Lab Interpretation (test Abnormal code = 15890-6) [facility]ilionProtein, random [id number] 19:02:00 Test Item Value Reference Range Interpretation Comments Protein, Urine (test code 212 mg/dL 0-14 H = 2888-6) ISSA (test code = ISSA) [employer] Mate ID - [id number] ID - [id number] Lab Interpretation (test Abnormal code = 13697-1) [facility]ilionProtein, random [id number] 19:02:00 Test Item Value Reference Range Interpretation Comments Protein, Urine (test code 212 mg/dL 0-14 H = 2888-6) ISSA (test code = ISSA) [employer] Mate ID - [id number] ID - [id number] Lab Interpretation (test Abnormal code = 89075-0) [facility]ilionProtein, random [id number] 19:02:00 Test Item Value Reference Range Interpretation Comments Protein, Urine (test code 212 mg/dL 0-14 H = 2888-6) ISSA (test code = ISSA) [employer] Mate ID - [id number] ID - [id number] Lab Interpretation (test Abnormal code = 34277-3) [facility] PavilionPROTEIN, RANDOM [id number] 19:02:00 Test Item Value Reference Range Interpretation Comments PROTEIN, URINE (BEAKER) (test code 212 mg/dL 0-14 H = 1569) [employer] ID - [id number] ID - [id number], random [id number] 18:49:00 Test Item Value Reference Range Interpretation Comments Creatinine, Ur 23.8 mg/dL (test code = 2161-8) ISSA (test code = Reference Range: No ISSA) NormalsOperator ID - [id number] [facility] PavilionCreatinine, random [id number] 18:49:00 Test Item Value Reference Range Interpretation Comments Creatinine, Ur 23.8 mg/dL (test code = 2161-8) ISSA (test code = Reference Range: No ISSA) NormalsOperator ID - [id number] [facility] PavilionCreatinine, random [id number] 18:49:00 Test Item Value Reference Range Interpretation Comments Creatinine, Ur 23.8 mg/dL (test code = 2161-8) ISSA (test code = Reference Range: No ISSA) NormalsOperator ID - [id number] [facility]ilionCreessentia healthine, random [id number] 18:49:00 Test Item Value Reference Range Interpretation Comments Creatinine, Ur 23.8 mg/dL (test code = 2161-8) ISSA (test code = Reference Range: No ISSA) NormalsOperator ID - [id number] [facility], random [id number] 18:49:00 Test Item Value Reference Range Interpretation Comments Creatinine, Ur 23.8 mg/dL (test code = 2161-8) ISSA (test code = Reference Range: No ISSA) NormalsOperator ID - [id number] [facility]ilionCreatinine, random [id number] 18:49:00 Test Item Value Reference Range Interpretation Comments Creatinine, Ur 23.8 mg/dL (test code = 2161-8) ISSA (test code = Reference Range: No ISSA) NormalsOperator ID - [id number] [facility], [facility] [id number] 18:49:00 Test Item Value Reference Range Interpretation Comments Creatinine, Ur 23.8 mg/dL (test code = 2161-8) ISSA (test code = Reference Range: No ISSA) NormalsOperator ID - [id number] [facility]CREN[facility]ENTERINE, RANDOM [id number] 18:49:00 Test Item Value Reference Range Interpretation Comments CREATININE URINE (BEAKER) (test 23.8 mg/dL code = 375) Reference Range: No NormalsOperator ID - [id number], random urine 2020-09-23 18:43:00 Test Item Value Reference Range Interpretation Comments ChlorideUr (test 117 meq/L code = 68931-3) ISSA (test code = Reference Range: No ISSA) NormalsOperator ID - [id number] [facility]ilionPotassium, random [id number] 18:43:00 Test Item Value Reference Range Interpretation Comments Potassium Urine 21.5 meq/L (test code = 2828-2) ISSA (test code = Reference Range: No ISSA) NormalsOperator ID - [id number] [facility] [id number] 18:43:00 Test Item Value Reference Range Interpretation Comments Sodium Urine (test 113 meq/L code = 2955-3) ISSA (test code = Reference Range: No ISSA) NormalsOperator ID - [id number] [facility]ilionChloride, random [id number] 18:43:00 Test Item Value Reference Range Interpretation Comments ChlorideUr (test 117 meq/L code = 36613-3) ISSA (test code = Reference Range: No ISSA) NormalsOperator ID - [id number] [facility]ilionPotassium, random [id number] 18:43:00 Test Item Value Reference Range Interpretation Comments Potassium Urine 21.5 meq/L (test code = 2828-2) ISSA (test code = Reference Range: No ISSA) NormalsOperator ID - [id number] [facility] [place] [id number] 18:43:00 Test Item Value Reference Range Interpretation Comments Sodium Urine (test 113 meq/L code = 2955-3) ISSA (test code = Reference Range: No ISSA) NormalsOperator ID - [id number] [facility]ilionChloride, random [id number] 18:43:00 Test Item Value Reference Range Interpretation Comments ChlorideUr (test 117 meq/L code = 76870-0) ISSA (test code = Reference Range: No ISSA) NormalsOperator ID - [id number] [facility]ilionPotassium, random [id number] 18:43:00 Test Item Value Reference Range Interpretation Comments Potassium Urine 21.5 meq/L (test code = 2828-2) ISSA (test code = Reference Range: No ISSA) NormalsOperator ID - [id number] [facility] [place] [id number] 18:43:00 Test Item Value Reference Range Interpretation Comments Sodium Urine (test 113 meq/L code = 2955-3) ISSA (test code = Reference Range: No ISSA) NormalsOperator ID - [id number] [facility]ilionChloride, random [id number] 18:43:00 Test Item Value Reference Range Interpretation Comments ChlorideUr (test 117 meq/L code = 63695-4) ISSA (test code = Reference Range: No ISSA) NormalsOperator ID - [id number] [facility]ilionPotassium, random [id number] 18:43:00 Test Item Value Reference Range Interpretation Comments Potassium Urine 21.5 meq/L (test code = 2828-2) ISSA (test code = Reference Range: No ISSA) NormalsOperator ID - [id number] [facility] [place] [id number] 18:43:00 Test Item Value Reference Range Interpretation Comments Sodium Urine (test 113 meq/L code = 2955-3) ISSA (test code = Reference Range: No ISSA) NormalsOperator ID - [id number] [facility]ilionChloride, random [id number] 18:43:00 Test Item Value Reference Range Interpretation Comments ChlorideUr (test 117 meq/L code = 21279-4) ISSA (test code = Reference Range: No ISSA) NormalsOperator ID - [id number] [facility]ilionPotassium, random [id number] 18:43:00 Test Item Value Reference Range Interpretation Comments Potassium Urine 21.5 meq/L (test code = 2828-2) ISSA (test code = Reference Range: No ISSA) NormalsOperator ID - [id number] [facility], [facility] [id number] 18:43:00 Test Item Value Reference Range Interpretation Comments Sodium Urine (test 113 meq/L code = 2955-3) ISSA (test code = Reference Range: No ISSA) NormalsOperator ID - [id number] [facility]ilionChloride, random [id number] 18:43:00 Test Item Value Reference Range Interpretation Comments ChlorideUr (test 117 meq/L code = 81205-7) ISSA (test code = Reference Range: No ISSA) NormalsOperator ID - [id number] [facility]ilionPotassium, random [id number] 18:43:00 Test Item Value Reference Range Interpretation Comments Potassium Urine 21.5 meq/L (test code = 2828-2) ISSA (test code = Reference Range: No ISSA) NormalsOperator ID - [id number] [facility] [place] [id number] 18:43:00 Test Item Value Reference Range Interpretation Comments Sodium Urine (test 113 meq/L code = 2955-3) ISSA (test code = Reference Range: No ISSA) NormalsOperator ID - [id number] [facility]ilionChloride, random [id number] 18:43:00 Test Item Value Reference Range Interpretation Comments ChlorideUr (test 117 meq/L code = 88527-0) ISSA (test code = Reference Range: No ISSA) NormalsOperator ID - [id number] [facility]ilionPotassium, random [id number] 18:43:00 Test Item Value Reference Range Interpretation Comments Potassium Urine 21.5 meq/L (test code = 2828-2) ISSA (test code = Reference Range: No ISSA) NormalsOperator ID - [id number] [facility] [id number] 18:43:00 Test Item Value Reference Range Interpretation Comments Sodium Urine (test 113 meq/L code = 2955-3) ISSA (test code = Reference Range: No ISSA) NormalsOperator ID - [id number] [facility]ilionCHLORIDE, RANDOM [id number] 18:43:00 Test Item Value Reference Range Interpretation Comments CHLORIDE URINE (BEAKER) (test code 117 meq/L = 682) Reference Range: No NormalsOperator ID - [id number], RANDOM URINE 2020-09-23 18:43:00 Test Item Value Reference Range Interpretation Comments POTASSIUM URINE (BEAKER) (test 21.5 meq/L code = 195) Reference Range: No NormalsOperator ID - [id number], RANDOM [id number] 18:43:00 Test Item Value Reference Range Interpretation Comments SODIUM URINE (BEAKER) (test code = 113 meq/L 243) Reference Range: No NormalsOperator ID - [id number] w/Microscopic + Reflex to [id number] 17:44:00 Test Item Value Reference Range Interpretation Comments Color, UA (test code = Yellow 5778-6) Clarity, UA (test code = Clear 5767-9) Specific [place], UA 1.020 1.001-1.035 (test code = 5811-5) pH, UA (test code = 7.0 5.0-8.0 5803-2) Protein, UA (test code = 100 mg/dL Negative A 68300-9) Glucose, UA (test code = 100 mg/dL Negative A 365) Ketones, UA (test code = Negative Negative 2514-8) Bilirubin, UA (test code Negative Negative = 00805-9) Blood, UA (test code = Trace Negative A 15198-6) Nitrite, UA (test code = Negative Negative 5802-4) Leukocytes, UA (test Negative Negative code = 5799-2) Urobilinogen, UA (test 0.2 mg/dL 0.2-1 code = 95307-5) Bacteria, UA (test code None Seen = 84898-3) RBC, UA (test code = <5 See_Comment [Autom ated message] 799-7) The system HipChat generated this result transmit josé luis reference range : /HPF. The refer ence range was not u sed to interpret th is result as normal/abnormal . WBC, UA (test code = None Seen See_Comment [Autom ated message] 33032-9) The system HipChat generated this result transmit josé luis reference range : /HPF. The refer ence range was not u sed to interpret th is result as normal/abnormal . SQUAMOUS EPITHELIAL <5 See_Comment [Automa josé luis message] (test code = 34041-5) The sy stem which generated this result transmit josé luis reference range : /HPF. The refer ence range was not u sed to interpret th is result as normal/abnormal . Specimen Source (test code = 2795) Lab Interpretation (test Abnormal code = 68345-8) [facility]ilionUrinalysis w/Microscopic + Reflex to Culture 2020-09-23 17:44:00 Test Item Value Reference Range Interpretation Comments Color, UA (test code = Yellow 5778-6) Clarity, UA (test code = Clear 5767-9) Specific [place], UA 1.020 1.001-1.035 (test code = 5811-5) pH, UA (test code = 7.0 5.0-8.0 5803-2) Protein, UA (test code = 100 mg/dL Negative A 06737-5) Glucose, UA (test code = 100 mg/dL Negative A 365) Ketones, UA (test code = Negative Negative 2514-8) Bilirubin, UA (test code Negative Negative = 77151-3) Blood, UA (test code = Trace Negative A 36890-1) Nitrite, UA (test code = Negative Negative 5802-4) Leukocytes, UA (test Negative Negative code = 5799-2) Urobilinogen, UA (test 0.2 mg/dL 0.2-1 code = 09493-2) Bacteria, UA (test code None Seen = 67783-3) RBC, UA (test code = <5 See_Comment [Autom ated message] 799-7) The system HipChat generated this result transmit josé luis reference range : /HPF. The refer ence range was not u sed to interpret th is result as normal/abnormal . WBC, UA (test code = None Seen See_Comment [Autom ated message] 04204-9) The system HipChat generated this result transmit josé luis reference range : /HPF. The refer ence range was not u sed to interpret th is result as normal/abnormal . SQUAMOUS EPITHELIAL <5 See_Comment [Automa josé luis message] (test code = 80193-4) The sy stem which generated this result transmit josé luis reference range : /HPF. The refer ence range was not u sed to interpret th is result as normal/abnormal . Specimen Source (test code = 2795) Lab Interpretation (test Abnormal code = 34444-5) [facility]Ur[facility] w/Microscopic + Reflex to Culture 2020-09-23 17:44:00 Test Item Value Reference Range Interpretation Comments Color, UA (test code = Yellow 5778-6) Clarity, UA (test code = Clear 5767-9) Specific [place], UA 1.020 1.001-1.035 (test code = 5811-5) pH, UA (test code = 7.0 5.0-8.0 5803-2) Protein, UA (test code = 100 mg/dL Negative A 60451-2) Glucose, UA (test code = 100 mg/dL Negative A 365) Ketones, UA (test code = Negative Negative 2514-8) Bilirubin, UA (test code Negative Negative = 44464-0) Blood, UA (test code = Trace Negative A 89397-4) Nitrite, UA (test code = Negative Negative 5802-4) Leukocytes, UA (test Negative Negative code = 5799-2) Urobilinogen, UA (test 0.2 mg/dL 0.2-1 code = 93477-0) Bacteria, UA (test code None Seen = 50165-1) RBC, UA (test code = <5 See_Comment [Autom ated message] 799-7) The system HipChat generated this result transmit josé luis reference range : /HPF. The refer ence range was not u sed to interpret th is result as normal/abnormal . WBC, UA (test code = None Seen See_Comment [Autom ated message] 48278-7) The system HipChat generated this result transmit josé luis reference range : /HPF. The refer ence range was not u sed to interpret th is result as normal/abnormal . SQUAMOUS EPITHELIAL <5 See_Comment [Automa josé luis message] (test code = 55780-3) The sy stem which generated this result transmit josé luis reference range : /HPF. The refer ence range was not u sed to interpret th is result as normal/abnormal . Specimen Source (test code = 2795) Lab Interpretation (test Abnormal code = 27920-3) [facility]/Microscopic + Reflex to Culture 2020-09-23 17:44:00 Test Item Value Reference Range Interpretation Comments Color, UA (test code = Yellow 5778-6) Clarity, UA (test code = Clear 5767-9) Specific [place], UA 1.020 1.001-1.035 (test code = 5811-5) pH, UA (test code = 7.0 5.0-8.0 5803-2) Protein, UA (test code = 100 mg/dL Negative A 93110-8) Glucose, UA (test code = 100 mg/dL Negative A 365) Ketones, UA (test code = Negative Negative 2514-8) Bilirubin, UA (test code Negative Negative = 48736-8) Blood, UA (test code = Trace Negative A 55271-0) Nitrite, UA (test code = Negative Negative 5802-4) Leukocytes, UA (test Negative Negative code = 5799-2) Urobilinogen, UA (test 0.2 mg/dL 0.2-1 code = 18554-9) Bacteria, UA (test code None Seen = 16594-2) RBC, UA (test code = <5 See_Comment [Autom ated message] 799-7) The system HipChat generated this result transmit josé luis reference range : /HPF. The refer ence range was not u sed to interpret th is result as normal/abnormal . WBC, UA (test code = None Seen See_Comment [Autom ated message] 39501-9) The system HipChat generated this result transmit josé luis reference range : /HPF. The refer ence range was not u sed to interpret th is result as normal/abnormal . SQUAMOUS EPITHELIAL <5 See_Comment [Automa josé luis message] (test code = 24488-4) The sy stem which generated this result transmit josé luis reference range : /HPF. The refer ence range was not u sed to interpret th is result as normal/abnormal . Specimen Source (test code = 2795) Lab Interpretation (test Abnormal code = 85671-9) [facility]/Microscopic + Reflex to Culture 2020-09-23 17:44:00 Test Item Value Reference Range Interpretation Comments Color, UA (test code = Yellow 5778-6) Clarity, UA (test code = Clear 5767-9) Specific [place], UA 1.020 1.001-1.035 (test code = 5811-5) pH, UA (test code = 7.0 5.0-8.0 5803-2) Protein, UA (test code = 100 mg/dL Negative A 74055-3) Glucose, UA (test code = 100 mg/dL Negative A 365) Ketones, UA (test code = Negative Negative 2514-8) Bilirubin, UA (test code Negative Negative = 03701-6) Blood, UA (test code = Trace Negative A 37369-6) Nitrite, UA (test code = Negative Negative 5802-4) Leukocytes, UA (test Negative Negative code = 5799-2) Urobilinogen, UA (test 0.2 mg/dL 0.2-1.0 code = 90300-2) Bacteria, UA (test code None Seen = 57864-0) RBC, UA (test code = <5 See_Comment [Autom ated message] 799-7) The system HipChat generated this result transmit josé luis reference range : /HPF. The refer ence range was not u sed to interpret th is result as normal/abnormal . WBC, UA (test code = None Seen See_Comment [Autom ated message] 70536-2) The system HipChat generated this result transmit josé luis reference range : /HPF. The refer ence range was not u sed to interpret th is result as normal/abnormal . SQUAMOUS EPITHELIAL <5 See_Comment [Automa josé luis message] (test code = 90935-0) The sy stem which generated this result transmit josé luis reference range : /HPF. The refer ence range was not u sed to interpret th is result as normal/abnormal . Specimen Source (test code = 2795) Lab Interpretation (test Abnormal code = 36513-2) [facility]/Microscopic + Reflex to Culture 2020-09-23 17:44:00 Test Item Value Reference Range Interpretation Comments Color, UA (test code = Yellow 5778-6) Clarity, UA (test code = Clear 5767-9) Specific [place], UA 1.020 1.001-1.035 (test code = 5811-5) pH, UA (test code = 7.0 5.0-8.0 5803-2) Protein, UA (test code = 100 mg/dL Negative A 44954-1) Glucose, UA (test code = 100 mg/dL Negative A 365) Ketones, UA (test code = Negative Negative 2514-8) Bilirubin, UA (test code Negative Negative = 92577-6) Blood, UA (test code = Trace Negative A 63380-1) Nitrite, UA (test code = Negative Negative 5802-4) Leukocytes, UA (test Negative Negative code = 5799-2) Urobilinogen, UA (test 0.2 mg/dL 0.2-1.0 code = 00460-3) Bacteria, UA (test code None Seen = 09018-5) RBC, UA (test code = <5 See_Comment [Autom ated message] 799-7) The system HipChat generated this result transmit josé luis reference range : /HPF. The refer ence range was not u sed to interpret th is result as normal/abnormal . WBC, UA (test code = None Seen See_Comment [Autom ated message] 09380-0) The system HipChat generated this result transmit josé luis reference range : /HPF. The refer ence range was not u sed to interpret th is result as normal/abnormal . SQUAMOUS EPITHELIAL <5 See_Comment [Automa josé luis message] (test code = 09542-4) The sy stem which generated this result transmit josé luis reference range : /HPF. The refer ence range was not u sed to interpret th is result as normal/abnormal . Specimen Source (test code = 2795) Lab Interpretation (test Abnormal code = 41552-5) [facility]/Microscopic + Reflex to Culture 2020-09-23 17:44:00 Test Item Value Reference Range Interpretation Comments Color, UA (test code = Yellow 5778-6) Clarity, UA (test code = Clear 5767-9) Specific [place], UA 1.020 1.001-1.035 (test code = 5811-5) pH, UA (test code = 7.0 5.0-8.0 5803-2) Protein, UA (test code = 100 mg/dL Negative A 58985-2) Glucose, UA (test code = 100 mg/dL Negative A 365) Ketones, UA (test code = Negative Negative 2514-8) Bilirubin, UA (test code Negative Negative = 67872-2) Blood, UA (test code = Trace Negative A 61082-3) Nitrite, UA (test code = Negative Negative 5802-4) Leukocytes, UA (test Negative Negative code = 5799-2) Urobilinogen, UA (test 0.2 mg/dL 0.2-1.0 code = 47925-3) Bacteria, UA (test code None Seen = 07142-8) RBC, UA (test code = <5 See_Comment [Autom ated message] 799-7) The system HipChat generated this result transmit josé luis reference range : /HPF. The refer ence range was not u sed to interpret th is result as normal/abnormal . WBC, UA (test code = None Seen See_Comment [Autom ated message] 52801-5) The system whic h generated this result transmit josé luis reference range : /HPF. The refer ence range was not u sed to interpret th is result as normal/abnormal . SQUAMOUS EPITHELIAL <5 See_Comment [Automa josé luis message] (test code = 14936-4) The sy stem which generated this result transmit josé luis reference range : /HPF. The refer ence range was not u sed to interpret th is result as normal/abnormal . Specimen Source (test code = 2795) Lab Interpretation (test Abnormal code = 34683-0) [facility]ilionURINALYSIS W/ REFLEX URINE [id number] 17:44:00 Test Item Value Reference Range Interpretation Comments COLOR (BEAKER) (test code = Yellow 470) CLARITY (BEAKER) (test code = Clear 469) SPECIFIC GRAVITY UA (BEAKER) 1.020 1.001-1.035 (test code = 468) PH UA (BEAKER) (test code = 7.0 5.0-8.0 467) PROTEIN UA (BEAKER) (test code 100 mg/dL Negative A = 464) GLUCOSE UA (BEAKER) (test code 100 mg/dL Negative A = 365) KETONES UA (BEAKER) (test code Negative Negative = 371) BILIRUBIN UA (BEAKER) (test Negative Negative code = 462) BLOOD UA (BEAKER) (test code = Trace Negative A 461) NITRITE UA (BEAKER) (test code Negative Negative = 465) LEUKOCYTE ESTERASE UA (BEAKER) Negative Negative (test code = 466) UROBILINOGEN UA (BEAKER) (test 0.2 mg/dL 0.2-1.0 code = 463) BACTERIA (BEAKER) (test code = None Seen 517) RBC UA-MANUAL (BEAKER) (test <5 /HPF code = 1659) WBC UA-MANUAL (BEAKER) (test None Seen /HPF code = 1661) SQUAMOUS EPITHELIAL MANUAL <5 /HPF (BEAKER) (test code = 1663) SOURCE(BEAKER) (test code = 2795) POCT-GLUCOSE [id number] 16:33:00 Test Item Value Reference Range Interpretation Comments POC-GLUCOSE METER 232 mg/dL 70-110 H : TESTED A T [facility] [address] (BEAKER) (test code [address], = 1538) [facility] 77 478: Boatswain'S Mate/Techni cornelia ID = [id number] for Mily Coy 2D Echo W/Doppler(CW/PW/Color)2020-09-23 14:27:41Ejection FractionSLEH ECHO HEARTLAB MKCKESSON CPACSInterface, External Ris In - 09/23/2020 2:27 PM C DTTransthoracic Echocardiography Report (TTE) Demographics Patient Name FRANDY FORD Date of Study 09/23/2020 MERRITT Gender Male Visit Number [id number] Race Room Number 428 Number Date of 1975 Referring Physician Age 44 year(s) 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 Procedure Type of Study TTE procedure:2DECHO W DOPPLER(CW/PW/COLOR) (Routine) Indications:Dyspnea/SOB.Clinical HistorytiastrokerenalmihtnhlddmchfHeight: 70 inches Weight: 126.55 kg (279 lbs) BSA: 2.4 m^2 BMI: 40.03 kg/m^2HR: 67 bpm BP: 153/86 mmHg Summary Severely reduced LV function. EF is estimated at 25-30% No evidence of pericardial effusion. Normal tricuspid valve structure and function.Mild TR noted with moderate pulmonary hypertension noted by RVSP Signature Findings Technical Quality: Limited visualization due to body habitus. Left Severely reduced LV function. EF is estimated at 25-30% Ventricle Left Atrium Normal size left atrium. Right Normal right ventricle structure and function. Ventricle Right Atrium Normal right atrium. Aortic Valve Normal aortic valve structure and function. Mitral Valve Normal mitral valve structure and function. Tricuspid Normal tricuspid valve structure and function.Mild TR noted Valve with moderate pulmonary hypertension noted by RVSP Pulmonic Normal pulmonic valve structure and function. Valve Pericardium No evidence of pericardial effusion. Chambers/Structures Left Atrium LA Dimension: 4.41 cm Left Ventricle LVIDd: 5.99 cm LVEDV:179.05 ml LVIDs: 5.37 cm LVESV:139.76 ml LV Septum Diastolic: 1.57 cm LV SeptumSystolic: 1.6 cm LV PW Diastolic: 1.39 cm LV FS: 10.4 % LV PW Systolic:1.32 cm LVOT Diameter: 1.77 cm LVEF: 21.9 % Right Atrium RA Systolic Pressure: 10 mmHg Right Ventricle RV Diast Dim.: 2.94 cm RV Systolic Pressure: 47.75 mmHg Aorta Ao Root S of Jamil.: 2.31 cm Doppler/Quantitative Measurements Mitral Valve MV Peak E-Wave: 0.99 m/s MV Peak A-Wave: 0.24 m/s P1/2t: 41 msec E/A Ratio: 4.09 Peak Velocity: 1.01 m/s Peak Gradient: 3.96 mmHg Mean Velocity: 0.45 m/s Deceleration Time: 159.5msec Mean Gradient: 1.06 mmHg Area (continuity): 1.26 cm^2 MV Area (PHT): 5.36 cm^2 MR Velocity: 3.96 m/s MV VTI: 18.61 cm MV Osnny. Peak: Aortic Valve Peak Velocity: 1.32 m/s Mean Velocity: 0.86 m/s Peak Gradient: 6.94 mmHg Mean Gradient: 3.6 mmHg AV Area (continuity): 1.08 cm^2 AV VTI: 21.7 cm Cusp Separation:1.32 cm AV DVI: 0.44 LVOT Peak Velocity: 0.6 m/s Peak Gradient: 1.45 mmHg Mean Velocity: 0.35 m/s Mean Gradient: 0.63 mmHg LVOT Diameter: 1.77 cm LVOT VTI: 9.5 cm LVOT Area: 2.46 cm^2 LVOT SV:23.36 ml LVOT CO: 1.57 l/min LVOT CI: 0.65 l/min/m^2 Tricuspid Valve Estimated RVSP: 47.87 mmHg Estimated RAP: 10 mmHg TR Velocity: 3.07 m/s TR Gradient: 37.75 mmHg Pulmonic Valve Peak Velocity: 0.72 m/s Peak Gradient: 2.05 mmHg Estimated PASP: 47.75 [facility]CH[facility]/PW/Color)2020-09-23 14:27:41Ejection FractionSLEH ECHO HEARTLAB MKCKESSON CPACSInterface, External Ris In - 09/23/2020 2:27 PM C DTTransthoracic Echocardiography Report (TTE) Demographics Patient Name FRANDY FORD Date of Study 09/23/2020 MERRITT Gender Male Visit Number [id number] Race Room Number 428 Number Date of 1975 Referring Physician Age 44 year(s) 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 Procedure Type of Study TTE procedure:2DECHO W DOPPLER(CW/PW/COLOR) (Routine) Indications:Dyspnea/SOB.Clinical HistorytiastrokerenalmihtnhlddmchfHeight: 70 inches Weight: 126.55 kg (279 lbs) BSA: 2.4 m^2 BMI: 40.03 kg/m^2HR: 67 bpm BP: 153/86 mmHg Summary Severely reduced LV function. EF is estimated at 25-30% No evidence of pericardial effusion. Normal tricuspid valve structure and function.Mild TR noted with moderate pulmonary hypertension noted by RVSP Signature Findings Technical Quality: Limited visualization due to body habitus. Left Severely reduced LV function. EF is estimated at 25-30% Ventricle Left Atrium Normal size left atrium. Right Normal right ventricle structure and function. Ventricle Right Atrium Normal right atrium. Aortic Valve Normal aortic valve structure and function. Mitral Valve Normal mitral valve structure and function. Tricuspid Normal tricuspid valve structure and function.Mild TR noted Valve with moderate pulmonary hypertension noted by RVSP Pulmonic Normal pulmonic valve structure and function. Valve Pericardium No evidence of pericardial effusion. Chambers/Structures Left Atrium LA Dimension: 4.41 cm Left Ventricle LVIDd: 5.99 cm LVEDV:179.05 ml LVIDs: 5.37 cm LVESV:139.76 ml LV Septum Diastolic: 1.57 cm LV SeptumSystolic: 1.6 cm LV PW Diastolic: 1.39 cm LV FS: 10.4 % LV PW Systolic:1.32 cm LVOT Diameter: 1.77 cm LVEF: 21.9 % Right Atrium RA Systolic Pressure: 10 mmHg Right Ventricle RV Diast Dim.: 2.94 cm RV Systolic Pressure: 47.75 mmHg Aorta Ao Root S of Jamil.: 2.31 cm Doppler/Quantitative Measurements Mitral Valve MV Peak E-Wave: 0.99 m/s MV Peak A-Wave: 0.24 m/s P1/2t: 41 msec E/A Ratio: 4.09 Peak Velocity: 1.01 m/s Peak Gradient: 3.96 mmHg Mean Velocity: 0.45 m/s Deceleration Time: 159.5msec Mean Gradient: 1.06 mmHg Area (continuity): 1.26 cm^2 MV Area (PHT): 5.36 cm^2 MR Velocity: 3.96 m/s MV VTI: 18.61 cm MV Sonny. Peak: Aortic Valve Peak Velocity: 1.32 m/s Mean Velocity: 0.86 m/s Peak Gradient: 6.94 mmHg Mean Gradient: 3.6 mmHg AV Area (continuity): 1.08 cm^2 AV VTI: 21.7 cm Cusp Separation:1.32 cm AV DVI: 0.44 LVOT Peak Velocity: 0.6 m/s Peak Gradient: 1.45 mmHg Mean Velocity: 0.35 m/s Mean Gradient: 0.63 mmHg LVOT Diameter: 1.77 cm LVOT VTI: 9.5 cm LVOT Area: 2.46 cm^2 LVOT SV:23.36 ml LVOT CO: 1.57 l/min LVOT CI: 0.65 l/min/m^2 Tricuspid Valve Estimated RVSP: 47.87 mmHg Estimated RAP: 10 mmHg TR Velocity: 3.07 m/s TR Gradient: 37.75 mmHg Pulmonic Valve Peak Velocity: 0.72 m/s Peak Gradient: 2.05 mmHg Estimated PASP: 47.75 [facility]Do[facility]CW/PW/Color)2020-09-23 14:27:41Ejection FractionSLEH ECHO HEARTLAB MKCKESSON CPACSInterface, External Ris In - 09/23/2020 2:27 PM C DTTransthoracic Echocardiography Report (TTE) Demographics Patient Name FRANDY FORD Date of Study 09/23/2020 MERRITT Gender Male Visit Number [id number] Race Room Number 428 Number Date of 1975 Referring Physician Age 44 year(s) 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 Procedure Type of Study TTE procedure:2DECHO W DOPPLER(CW/PW/COLOR) (Routine) Indications:Dyspnea/SOB.Clinical HistorytiastrokerenalmihtnhlddmchfHeight: 70 inches Weight: 126.55 kg (279 lbs) BSA: 2.4 m^2 BMI: 40.03 kg/m^2HR: 67 bpm BP: 153/86 mmHg Summary Severely reduced LV function. EF is estimated at 25-30% No evidence of pericardial effusion. Normal tricuspid valve structure and function.Mild TR noted with moderate pulmonary hypertension noted by RVSP Signature Findings Technical Quality: Limited visualization due to body habitus. Left Severely reduced LV function. EF is estimated at 25-30% Ventricle Left Atrium Normal size left atrium. Right Normal right ventricle structure and function. Ventricle Right Atrium Normal right atrium. Aortic Valve Normal aortic valve structure and function. Mitral Valve Normal mitral valve structure and function. Tricuspid Normal tricuspid valve structure and function.Mild TR noted Valve with moderate pulmonary hypertension noted by RVSP Pulmonic Normal pulmonic valve structure and function. Valve Pericardium No evidence of pericardial effusion. Chambers/Structures Left Atrium LA Dimension: 4.41 cm Left Ventricle LVIDd: 5.99 cm LVEDV:179.05 ml LVIDs: 5.37 cm LVESV:139.76 ml LV Septum Diastolic: 1.57 cm LV SeptumSystolic: 1.6 cm LV PW Diastolic: 1.39 cm LV FS: 10.4 % LV PW Systolic:1.32 cm LVOT Diameter: 1.77 cm LVEF: 21.9 % Right Atrium RA Systolic Pressure: 10 mmHg Right Ventricle RV Diast Dim.: 2.94 cm RV Systolic Pressure: 47.75 mmHg Aorta Ao Root S of Jamil.: 2.31 cm Doppler/Quantitative Measurements Mitral Valve MV Peak E-Wave: 0.99 m/s MV Peak A-Wave: 0.24 m/s P1/2t: 41 msec E/A Ratio: 4.09 Peak Velocity: 1.01 m/s Peak Gradient: 3.96 mmHg Mean Velocity: 0.45 m/s Deceleration Time: 159.5msec Mean Gradient: 1.06 mmHg Area (continuity): 1.26 cm^2 MV Area (PHT): 5.36 cm^2 MR Velocity: 3.96 m/s MV VTI: 18.61 cm MV Sonny. Peak: Aortic Valve Peak Velocity: 1.32 m/s Mean Velocity: 0.86 m/s Peak Gradient: 6.94 mmHg Mean Gradient: 3.6 mmHg AV Area (continuity): 1.08 cm^2 AV VTI: 21.7 cm Cusp Separation:1.32 cm AV DVI: 0.44 LVOT Peak Velocity: 0.6 m/s Peak Gradient: 1.45 mmHg Mean Velocity: 0.35 m/s Mean Gradient: 0.63 mmHg LVOT Diameter: 1.77 cm LVOT VTI: 9.5 cm LVOT Area: 2.46 cm^2 LVOT SV:23.36 ml LVOT CO: 1.57 l/min LVOT CI: 0.65 l/min/m^2 Tricuspid Valve Estimated RVSP: 47.87 mmHg Estimated RAP: 10 mmHg TR Velocity: 3.07 m/s TR Gradient: 37.75 mmHg Pulmonic Valve Peak Velocity: 0.72 m/s Peak Gradient: 2.05 mmHg Estimated PASP: 47.75 mmHgCH[facility] W/Doppler(CW/PW/Color)2020-09-23 14:27:41Ejection FractionSLEH ECHO HEARTLAB MKCKESSON CPACSInterface, External Ris In - 09/23/2020 2:27 PM C DTTransthoracic Echocardiography Report (TTE) Demographics Patient Name FRANDY FORD Date of Study 09/23/2020 MERRITT Gender Male Visit Number [id number] Race Room Number 428 Number Date of 1975 Referring Physician Age 44 year(s) 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 Procedure Type of Study TTE procedure:2DECHO W DOPPLER(CW/PW/COLOR) (Routine) Indications:Dyspnea/SOB.Clinical HistorytiastrokerenalmihtnhlddmchfHeight: 70 inches Weight: 126.55 kg (279 lbs) BSA: 2.4 m^2 BMI: 40.03 kg/m^2HR: 67 bpm BP: 153/86 mmHg Summary Severely reduced LV function. EF is estimated at 25-30% No evidence of pericardial effusion. Normal tricuspid valve structure and function.Mild TR noted with moderate pulmonary hypertension noted by RVSP Signature Findings Technical Quality: Limited visualization due to body habitus. Left Severely reduced LV function. EF is estimated at 25-30% Ventricle Left Atrium Normal size left atrium. Right Normal right ventricle structure and function. Ventricle Right Atrium Normal right atrium. Aortic Valve Normal aortic valve structure and function. Mitral Valve Normal mitral valve structure and function. Tricuspid Normal tricuspid valve structure and function.Mild TR noted Valve with moderate pulmonary hypertension noted by RVSP Pulmonic Normal pulmonic valve structure and function. Valve Pericardium No evidence of pericardial effusion. Chambers/Structures Left Atrium LA Dimension: 4.41 cm Left Ventricle LVIDd: 5.99 cm LVEDV:179.05 ml LVIDs: 5.37 cm LVESV:139.76 ml LV Septum Diastolic: 1.57 cm LV SeptumSystolic: 1.6 cm LV PW Diastolic: 1.39 cm LV FS: 10.4 % LV PW Systolic:1.32 cm LVOT Diameter: 1.77 cm LVEF: 21.9 % Right Atrium RA Systolic Pressure: 10 mmHg Right Ventricle RV Diast Dim.: 2.94 cm RV Systolic Pressure: 47.75 mmHg Aorta Ao Root S of Jamil.: 2.31 cm Doppler/Quantitative Measurements Mitral Valve MV Peak E-Wave: 0.99 m/s MV Peak A-Wave: 0.24 m/s P1/2t: 41 msec E/A Ratio: 4.09 Peak Velocity: 1.01 m/s Peak Gradient: 3.96 mmHg Mean Velocity: 0.45 m/s Deceleration Time: 159.5msec Mean Gradient: 1.06 mmHg Area (continuity): 1.26 cm^2 MV Area (PHT): 5.36 cm^2 MR Velocity: 3.96 m/s MV VTI: 18.61 cm MV Sonny. Peak: Aortic Valve Peak Velocity: 1.32 m/s Mean Velocity: 0.86 m/s Peak Gradient: 6.94 mmHg Mean Gradient: 3.6 mmHg AV Area (continuity): 1.08 cm^2 AV VTI: 21.7 cm Cusp Separation:1.32 cm AV DVI: 0.44 LVOT Peak Velocity: 0.6 m/s Peak Gradient: 1.45 mmHg Mean Velocity: 0.35 m/s Mean Gradient: 0.63 mmHg LVOT Diameter: 1.77 cm LVOT VTI: 9.5 cm LVOT Area: 2.46 cm^2 LVOT SV:23.36 ml LVOT CO: 1.57 l/min LVOT CI: 0.65 l/min/m^2 Tricuspid Valve Estimated RVSP: 47.87 mmHg Estimated RAP: 10 mmHg TR Velocity: 3.07 m/s TR Gradient: 37.75 mmHg Pulmonic Valve Peak Velocity: 0.72 m/s Peak Gradient: 2.05 mmHg Estimated PASP: 47.75 mmHgJohn [facility] W/Doppler(CW/PW/Color)2020-09-23 14:27:41Ejection FractionSLE ECHO HEARTLAB [facility]2D Echo W/Doppler(CW/PW/Color)2020-09-23 14:27:41Ejection FractionSLE ECHO HEARTLAB [facility]2D Echo W/Doppler(CW/PW/Color) 2020-09-23 14:27:41Ejection FractionSLE ECHO [facility]PO[facility] [id number] 11:54:00 Test Item Value Reference Range Interpretation Comments POC-GLUCOSE METER 133 mg/dL 70-110 H : TESTED A T [facility] 1317 (BEAKER) (test code [address], = 1538) [facility] 77 [address]: Boatswain'S Mate/Techni cornelia ID = [id number] for Martyalberta salmonaMily RAD, FOOT, MIN 3 VIEWS, [id number] 08:48:00Reason for exam:->foot wound [facility] : 1975 Sex: MFINAL REPORT Left foot, 3 views. History: Foot wound. Comparison: 03/30/2020. Findings: Vascular calcifications are noted. There is soft tissue irregularity along the distal lateral aspect of the foot overlying the fifth metatarsophalangeal joint, with adjacent erosionof the distal fifth metatarsal head. Remaining bones are intact. Bone mineralization is normal. There is no evidence of acute fracture or dislocation. The joint spaces are within normal limits. IMPRESSION:Fifth metatarsal head osteomyelitis with adjacent soft tissue ulceration. Signed: Howard LacyMDReport Verified Date/Time: 09/23/2020 08:48:33 Reading Location: [facility] Radiology Reading Room POCT-GLUCOSE METER 2020-09-23 08:11:00 Test Item Value Reference Range Interpretation Comments POC-GLUCOSE METER 91 mg/dL 70-110 : TESTED A T [facility] 1317 (BEAKER) (test code = [address], 1538) [facility] 77 478: Boatswain'S Mate/Techni cornelia ID = [id number] for Mily Coy [id number] 08:04:00 Test Item Value Reference Range Interpretation Comments Phosphorus (test code = 3.5 mg/dL 2.5-4.5 2777-1) ISSA (test code = ISSA) Boatswain'S Mate ID - [id number] Lab Interpretation (test Normal code = 74059-8) [facility]2021-[facility] 08:04:00 Test Item Value Reference Range Interpretation Comments Phosphorus (test code = 3.5 mg/dL 2.5-4.5 2777-1) ISSA (test code = ISSA) Boatswain'S Mate ID - [id number] Lab Interpretation (test Normal code = 28758-3) [facility]2021-06-28 08:04:00 Test Item Value Reference Range Interpretation Comments Phosphorus (test code = 3.5 mg/dL 2.5-4.5 2777-1) ISSA (test code = ISSA) Boatswain'S Mate ID - [id number] Lab Interpretation (test Normal code = 85368-7) [facility]2021-[facility]-28 08:04:00 Test Item Value Reference Range Interpretation Comments Phosphorus (test code = 3.5 mg/dL 2.5-4.5 2777-1) ISSA (test code = ISSA) Boatswain'S Mate ID - [id number] Lab Interpretation (test Normal code = 53095-7) [facility]2021-06-28 08:04:00 Test Item Value Reference Range Interpretation Comments Phosphorus (test code = 3.5 mg/dL 2.5-4.5 2777-1) ISSA (test code = ISSA) Boatswain'S Mate ID - [id number] Lab Interpretation (test Normal code = 93500-0) [facility]2021-[facility]-28 08:04:00 Test Item Value Reference Range Interpretation Comments Phosphorus (test code = 3.5 mg/dL 2.5-4.5 2777-1) ISSA (test code = ISSA) Boatswain'S Mate ID - [id number] Lab Interpretation (test Normal code = 61015-3) [facility]2021-[facility]-28 08:04:00 Test Item Value Reference Range Interpretation Comments Phosphorus (test code = 3.5 mg/dL 2.5-4.5 2777-1) ISSA (test code = ISSA) Boatswain'S Mate ID - [id number] Lab Interpretation (test Normal code = 65779-0) [facility]2021-06-28 08:04:00 Test Item Value Reference Range Interpretation Comments PHOSPHORUS (BEAKER) (test code = 3.5 mg/dL 2.5-4.5 604) Boatswain'[employer] Mate ID - [id number] METABOLIC [id number] 06:06:00 Test Item Value Reference Range Interpretation Comments SODIUM (BEAKER) 142 meq/L 135-148 (test code = 381) POTASSIUM (BEAKER) 3.7 meq/L 3.6-5.5 (test code = 379) CHLORIDE (BEAKER) 98 meq/L 98-106 (test code = 382) CO2 (BEAKER) (test 33 meq/L 20-29 H code = 355) BLOOD UREA NITROGEN 49 mg/dL 10-26 H (BEAKER) (test code = 354) CREATININE (BEAKER) 2.00 mg/dL 0.50-1.20 H (test code = 358) GLUCOSE RANDOM 100 mg/dL 70-110 (BEAKER) (test code = 652) CALCIUM (BEAKER) 9.5 mg/dL 8.5-10.5 (test code = 697) EGFR (BEAKER) (test 36 mL/min/1.73 ESTIMA JOSÉ LUIS GFR IS code = 1092) sq m NOT ACCURATE CREATININE CLEARANCE IN PREDICTING GLOMERULAR FILTRATION RATE . ESTIMATED GFR I S NOT APPLICABLE FOR DIALYSIS PATIEN TS. Boatswain'S Mate ID - [id number] ID - [id number] ID - [id number] ID - [id number] ID - [id number] ID - [id number] ID - [id number] ID - [id number] ID - WWEM18Yphyyect ID - [id number] 05:56:00 Test Item Value Reference Range Interpretation Comments MAGNESIUM (BEAKER) (test code = 1.5 mg/dL 1.5-3.0 627) Boatswain'S Mate ID - [id number] ID - [id number] ID - [id number] ID - [id number] CBC W/PLT COUNT & AUTO [id number] 05:39:00 Test Item Value Reference Range Interpretation Comments WHITE BLOOD CELL COUNT (BEAKER) 8.6 K/ L 4.0-10.0 (test code = 775) RED BLOOD CELL COUNT (BEAKER) 4.30 M/ L 4.20-5.80 (test code = 761) HEMOGLOBIN (BEAKER) (test code = 12.5 GM/DL 13.0-16.8 L 410) HEMATOCRIT (BEAKER) (test code = 41.2 % 36.0-50.0 411) MEAN CORPUSCULAR VOLUME (BEAKER) 95.8 fL 82.0-99.0 (test code = 753) MEAN CORPUSCULAR HEMOGLOBIN 29.1 pg 27.0-33.0 (BEAKER) (test code = 751) MEAN CORPUSCULAR HEMOGLOBIN CONC 30.3 GM/DL 32.0-36.0 L (BEAKER) (test code = 752) RED CELL DISTRIBUTION WIDTH 15.6 % 12.0-15.0 H (BEAKER) (test code = 412) PLATELET COUNT (BEAKER) (test 290 K/CU MM 150-430 code = 756) MEAN PLATELET VOLUME (BEAKER) 10.9 fL 6.0-11.5 (test code = 754) NUCLEATED RED BLOOD CELLS 0 /100 WBC 0-0 (BEAKER) (test code = 413) NEUTROPHILS RELATIVE PERCENT 74 % (BEAKER) (test code = 429) LYMPHOCYTES RELATIVE PERCENT 14 % (BEAKER) (test code = 430) MONOCYTES RELATIVE PERCENT 8 % (BEAKER) (test code = 431) EOSINOPHILS RELATIVE PERCENT 3 % (BEAKER) (test code = 432) BASOPHILS RELATIVE PERCENT 1 % (BEAKER) (test code = 437) NEUTROPHILS ABSOLUTE COUNT 6.35 K/ L 1.80-8.00 (BEAKER) (test code = 670) LYMPHOCYTES ABSOLUTE COUNT 1.17 K/ L 1.48-4.50 L (BEAKER) (test code = 414) MONOCYTES ABSOLUTE COUNT (BEAKER) 0.72 K/ L 0.00-1.30 (test code = 415) EOSINOPHILS ABSOLUTE COUNT 0.22 K/ L 0.00-0.50 (BEAKER) (test code = 416) BASOPHILS ABSOLUTE COUNT (BEAKER) 0.06 K/ L 0.00-0.20 (test code = 417) IMMATURE GRANULOCYTES-RELATIVE 1 % 0-0 H PERCENT (BEAKER) (test code = 2801) POCT-GLUCOSE [id number] 20:58:00 Test Item Value Reference Range Interpretation Comments POC-GLUCOSE METER 126 mg/dL 70-110 H : [facility] ([facility] (test code [facility] [address], = 1538) [facility] 77 478: Boatswain'S Mate/Techni cornelia ID = [id number] for Rachel Branham POCT-GLUCOSE [id number] 17:16:00 Test Item Value Reference Range Interpretation Comments POC-GLUCOSE METER 201 mg/dL 70-110 H : TESTED A T [facility] 1317 (BEMARTY) (test code [address], = 1538) [facility] 77 478: Boatswain'S Mate/Techni cornelia ID = [id number] for Mily Coy SARS-CoV2/RT-PCR (Asymptomatic ONLY)2020-09-22 12:08:00 Test Item Value Reference Range Interpretation Comments SARS-COV2/RT-PCR Negative Not Detected, Performanc e of the Xpert (test code = Negative, See Xpress 55155-8) external report SARS-CoV-2/F siddhartha/RSV test for linked test has only bee n established in nasopharyngeal swab specimens. Use of the Xpert Xpress SARS-CoV-2/Flu/ RSV test with other spec imen types has not b een assessed and pe rformance characteristics are unknown. As wi th any molecular test, mutations withi n the targeted geneti c regions identified by t he Xpert Xpress SARS-CoV-2/Flu/ RSV test could affect pr albin and/or probe bi nding resulting in fa ilure to detect the pres ence of virus or the vi ike being detected less predictably.Neg ative results do not preclude SARS-CoV-2, Inf luenza A/B, or RSV inf ection and should not be used as the sole bas is for treatment or ot her patient managem ent decisions. Res ults from the Xpert Xpres s SARS-CoV-2/Flu/ RSV test should be corre lated with the clinic al history, epidem iological data, and other data available to th e clinician evalu ating the patient. Inval id test results may occ ur from improper specim en collection; matilde lure to follow the brady mmended sample collecti on, handling, and s torage procedures; nik hnical error. False ne gative results may occ ur if virus is presen t at levels below th e analytical limi t of detection (LOD: 131 copies/mL). Vi ral nucleic acid ma y persist in vivo, indepe ndent of virus viability . Detection of an alyte target(s) does not imply that the corres ponding virus(es) are i nfectious or are the caus ative agents for clin ical symptoms. Rece nt patient exposur e to FluMist or ot her live attenuated infl uenza vaccines may ca use inaccurate posi tive results.This te st has been authorized by FDA under an EUA fo r use by authorized labo ratories. This test is o nly authorized for the duration of the declaration gerson t circumstances e xist justifying the authorization o f emergency use o f in vitro diagnosti c tests for detection a nd/or diagnosis of CO VID-19 under Section 5 64(b)(1) of the Federal Food, Drug and Cosmet ic Act, 21 U.S.C. 360bbb-3(b)(1), unless the authorizati on is terminated or r evoked sooner. Fact Sh eet for Healthcare Prov iders: https://www.[employer]/ Documents/Xpert %20Xpress %48ZXPW-JpH-2-F siddhartha-RSV/30 2-4508%20Rev.%2 0B%20HCP% 20Fact%20Sheet. pdf Fact Sheet for Healt hcare Patients: https://www.[employer]/ Documents/Xpert %20Xpress %72MGZQ-RzZ-7-F siddhartha-RSV/30 2-4507%20Rev.%2 0B%20Pati ent%20Fact%20Sh eet.pdf SARS-COV-2 SLSL Performed at:[facility] PERFORMING [facility] Amy Graff [id number] (test code = Ignacio Nelson [address]19[address]-5) [place] [address] ph: [phone] [facility] (Asymptomatic ONLY[place]2020-09-22 12:08:00 Test Item Value Reference Range Interpretation Comments SARS-COV2/RT-PCR Negative Not Detected, Performanc e of the Xpert (test code = Negative, See Xpress 43469-6) external report SARS-CoV-2/F siddhartha/RSV test for linked test has only bee n established in nasopharyngeal swab specimens. Use of the Xpert Xpress SARS-CoV-2/Flu/ RSV test with other spec imen types has not b een assessed and pe rformance characteristics are unknown. As wi th any molecular test, mutations withi n the targeted geneti c regions identified by t will Xpert Xpress SARS-CoV-2/Flu/ RSV test could affect pr albin and/or probe bi nding resulting in fa ilure to detect the pres ence of virus or the vi ike being detected less predictably.Neg ative results do not preclude SARS-CoV-2, Inf luenza A/B, or RSV inf ection and should not be used as the sole bas is for treatment or ot her patient managem ent decisions. Res ults from the Xpert Xpres s SARS-CoV-2/Flu/ RSV test should be corre lated with the clinic al history, epidem iological data, and other data available to th e clinician evalu ating the patient. Inval id test results may occ ur from improper specim en collection; matilde lure to follow the brady mmended sample collecti on, handling, and s torage procedures; nik hnical error. False ne gative results may occ ur if virus is presen t at levels below th e analytical limi t of detection (LOD: 131 copies/mL). Vi ral nucleic acid ma y persist in vivo, indepe ndent of virus viability . Detection of an alyte target(s) does not imply that the corres ponding virus(es) are i nfectious or are the caus ative agents for clin ical symptoms. Rece nt patient exposur e to FluMist or ot her live attenuated infl uenza vaccines may ca use inaccurate posi tive results.This te st has been authorized by FDA under an EUA fo r use by authorized labo ratchelsey. This test is o nly authorized for the duration of the declaration gerson t circumstances e xist justifying the authorization o f emergency use o f in vitro diagnosti c tests for detection a nd/or diagnosis of CO VID-19 under Section 5 64(b)(1) of the Federal Food, Drug and Cosmet ic Act, 21 U.S.C. 360bbb-3(b)(1), unless the authorizati on is terminated or r evoked sooner. Fact Sh eet for Healthcare Prov iders: https://www.cep heid.com/ Documents/Xpert %20Xpress %16DGWM-CtN-8-F siddhartha-RSV/30 2-4508%20Rev.%2 0B%20HCP% 20Fact%20Sheet. pdf Fact Sheet for Healt hcare Patients: https://www.Baby.[employer].brid.[employer]/ Documents/Xpert %20Xpress %14EWBH-WwB-0-F siddhartha-RSV/30 2-4507%20Rev.%2 0B%20Pati ent%20Fact%20Sh eet.pdf SARS-COV-2 SLSL Performed at:[facility] PERFORM[facility] Amy [id number] (test code = Ignacio Nelson 30761-2) [place] [address] ph: [phone] [facility] [place] (Asymptomatic ONLY[place]2020-09-22 12:08:00 Test Item Value Reference Range Interpretation Comments SARS-COV2/RT-PCR Negative Not Detected, Performanc e of the Xpert (test code = Negative, See Xpress 34068-4) external report SARS-CoV-2/F siddhartha/RSV test for linked test has only bee n established in nasopharyngeal swab specimens. Use of the Xpert Xpress SARS-CoV-2/Flu/ RSV test with other spec imen types has not b een assessed and pe rformance characteristics are unknown. As wi th any molecular test, mutations withi n the targeted geneti c regions identified by t he Xpert Xpress SARS-CoV-2/Flu/ RSV test could affect pr albin and/or probe bi nding resulting in fa ilure to detect the pres ence of virus or the vi ike being detected less predictably.Neg ative results do not preclude SARS-CoV-2, Inf luenza A/B, or RSV inf ection and should not be used as the sole bas is for treatment or ot her patient managem ent decisions. Res ults from the Xpert Xpres s SARS-CoV-2/Flu/ RSV test should be corre lated with the clinic al history, epidem iological data, and other data available to th e clinician evalu ating the patient. Inval id test results may occ ur from improper specim en collection; matilde lure to follow the brady mmended sample collecti on, handling, and s torage procedures; nik hnical error. False ne gative results may occ ur if virus is presen t at levels below th e analytical limi t of detection (LOD: 131 copies/mL). Vi ral nucleic acid ma y persist in vivo, indepe ndent of virus viability . Detection of an alyte target(s) does not imply that the corres ponding virus(es) are i nfectious or are the caus ative agents for clin ical symptoms. Rece nt patient exposur e to FluMist or ot her live attenuated infl uenza vaccines may ca use inaccurate posi tive results.This te st has been authorized by FDA under an EUA fo r use by authorized labo ratories. This test is o nly authorized for the duration of the declaration gerson t circumstances e xist justifying the authorization o f emergency use o f in vitro diagnosti c tests for detection a nd/or diagnosis of CO VID-19 under Section 5 64(b)(1) of the Federal Food, Drug and Cosmet ic Act, 21 U.S.C. 360bbb-3(b)(1), unless the authorizati on is terminated or r evoked sooner. Fact Sh eet for Healthcare Prov iders: https://www.[employer]/ Documents/Xpert %20Xpress %71XXGN-TbV-2-F siddhartha-RSV/30 2-4508%20Rev.%2 0B%20HCP% 20Fact%20Sheet. pdf Fact Sheet for Healt hcare Patients: https://www.[employer]/ Documents/Xpert %20Xpress %15FVTX-UoQ-3-F siddhartha-RSV/30 2-4507%20Rev.%2 0B%20Pati ent%20Fact%20Sh eet.pdf SARS-COV-2 SLSL Performed at:[facility] PERFORM[facility] [id number] (test code = Ignacio Nelson 58090-9) [place] [address] ph: [phone] [facility] [place] (Asymptomatic ONLY)2020-09-22 12:08:00 Test Item Value Reference Range Interpretation Comments SARS-COV2/RT-PCR Negative Not Detected, Performanc e of the Xpert (test code = Negative, See Xpress 62651-7) external report SARS-CoV-2/F siddhartha/RSV test for linked test has only bee n established in nasopharyngeal swab specimens. Use of the Xpert Xpress SARS-CoV-2/Flu/ RSV test with other spec imen types has not b een assessed and pe rformance characteristics are unknown. As wi th any molecular test, mutations withi n the targeted geneti c regions identified by t he Xpert Xpress SARS-CoV-2/Flu/ RSV test could affect pr albin and/or probe bi nding resulting in fa ilure to detect the pres ence of virus or the vi ike being detected less predictably.Neg ative results do not preclude SARS-CoV-2, Inf luenza A/B, or RSV inf ection and should not be used as the sole bas is for treatment or ot her patient managem ent decisions. Res ults from the Xpert Xpres s SARS-CoV-2/Flu/ RSV test should be corre lated with the clinic al history, epidem iological data, and other data available to th e clinician evalu ating the patient. Inval id test results may occ ur from improper specim en collection; matilde lure to follow the brady mmended sample collecti on, handling, and s torage procedures; nik hnical error. False ne gative results may occ ur if virus is presen t at levels below th e analytical limi t of detection (LOD: 131 copies/mL). Vi ral nucleic acid ma y persist in vivo, indepe ndent of virus viability . Detection of an alyte target(s) does not imply that the corres ponding virus(es) are i nfectious or are the caus ative agents for clin ical symptoms. Rece nt patient exposur e to FluMist or ot her live attenuated infl uenza vaccines may ca use inaccurate posi tive results.This te st has been authorized by FDA under an EUA fo r use by authorized labo ratories. This test is o nly authorized for the duration of the declaration gerson t circumstances e xist justifying the authorization o f emergency use o f in vitro diagnosti c tests for detection a nd/or diagnosis of CO VID-19 under Section 5 64(b)(1) of the Federal Food, Drug and Cosmet ic Act, 21 U.S.C. 360bbb-3(b)(1), unless the authorizati on is terminated or r evoked sooner. Fact Sh eet for Healthcare Prov iders: https://www.[employer].Andela/ Documents/Xpert %20Xpress %35JQBH-EoU-4-F siddhartha-RSV/30 2-4508%20Rev.%2 0B%20HCP% 20Fact%20Sheet. pdf Fact Sheet for Healt hcare Patients: https://www.[employer]/ Documents/Xpert %20Xpress %00ADFM-LkI-3-F siddhartha-RSV/30 2-4507%20Rev.%2 0B%20Pati ent%20Fact%20Sh eet.pdf SARS-COV-2 SLSL Performed at:[facility] PERFORMING LAB Amy fine1317 (test code = Ignacio Nelson 67645-5) [place] [address] ph: [phone] [facility] [place]2020-09-22 12:08:00 Test Item Value Reference Range Interpretation Comments SARS-COV2/RT-PCR Negative Not Detected, Performanc e of the Xpert (test code = Negative, See Xpress 76527-3) external report SARS-CoV-2/F siddhartha/RSV test for linked test has only bee n established in nasopharyngeal swab specimens. Use of the Xpert Xpress SARS-CoV-2/Flu/ RSV test with other spec imen types has not b een assessed and pe rformance characteristics are unknown. As wi th any molecular test, mutations withi n the targeted geneti c regions identified by t he Xpert Xpress SARS-CoV-2/Flu/ RSV test could affect pr albin and/or probe bi nding resulting in fa ilure to detect the pres ence of virus or the vi ike being detected less predictably.Neg ative results do not preclude SARS-CoV-2, Inf luenza A/B, or RSV inf ection and should not be used as the sole bas is for treatment or ot her patient managem ent decisions. Res ults from the Xpert Xpres s SARS-CoV-2/Flu/ RSV test should be corre lated with the clinic al history, epidem iological data, and other data available to th e clinician evalu ating the patient. Inval id test results may occ ur from improper specim en collection; matilde lure to follow the brady mmended sample collecti on, handling, and s torage procedures; nik hnical error. False ne gative results may occ ur if virus is presen t at levels below th e analytical limi t of detection (LOD: 131 copies/mL). Vi ral nucleic acid ma y persist in vivo, indepe ndent of virus viability . Detection of an alyte target(s) does not imply that the corres ponding virus(es) are i nfectious or are the caus ative agents for clin ical symptoms. Rece nt patient exposur e to FluMist or ot her live attenuated infl uenza vaccines may ca use inaccurate posi tive results.This te st has been authorized by FDA under an EUA fo r use by authorized labo ratories. This test is o nly authorized for the duration of the declaration gerson t circumstances e xist justifying the authorization o f emergency use o f in vitro diagnosti c tests for detection a nd/or diagnosis of CO VID-19 under Section 5 64(b)(1) of the Federal Food, Drug and Cosmet ic Act, 21 U.S.C. 360bbb-3(b)(1), unless the authorizati on is terminated or r evoked sooner. Fact Sh eet for Healthcare Prov iders: https://www.[employer].Andela/ Documents/Xpert %20Xpress %96ANPE-PnW-6-F siddhartha-RSV/30 2-4508%20Rev.%2 0B%20HCP% 20Fact%20Sheet. pdf Fact Sheet for Healt hcare Patients: https://www.[employer]Andela/ Documents/Xpert %20Xpress %08GFXU-IkO-3-F siddhartha-RSV/30 2-4507%20Rev.%2 0B%20Pati ent%20Fact%20Sh eet.pdf SARS-COV-2 SLSL Performed at:[facility] PERFORM[facility] [place] [id number] (test code = Ignacio Nelson 50461-2) [place] [address] ph: [phone] [facility] [place] (Asymptomatic ONLY[place]2020-09-22 12:08:00 Test Item Value Reference Range Interpretation Comments SARS-COV2/RT-PCR Negative Not Detected, Performanc e of the Xpert (test code = Negative, See Xpress 25151-9) external report SARS-CoV-2/F siddhartha/RSV test for linked test has only bee n established in nasopharyngeal swab specimens. Use of the Xpert Xpress SARS-CoV-2/Flu/ RSV test with other spec imen types has not b een assessed and pe rformance characteristics are unknown. As wi th any molecular test, mutations withi n the targeted geneti c regions identified by t he Xpert Xpress SARS-CoV-2/Flu/ RSV test could affect pr albin and/or probe bi nding resulting in fa ilure to detect the pres ence of virus or the vi ike being detected less predictably.Neg ative results do not preclude SARS-CoV-2, Inf luenza A/B, or RSV inf ection and should not be used as the sole bas is for treatment or ot her patient managem ent decisions. Res ults from the Xpert Xpres s SARS-CoV-2/Flu/ RSV test should be corre lated with the clinic al history, epidem iological data, and other data available to th e clinician evalu ating the patient. Inval id test results may occ ur from improper specim en collection; matilde lure to follow the brady mmended sample collecti on, handling, and s torage procedures; nik hnical error. False ne gative results may occ ur if virus is presen t at levels below th e analytical limi t of detection (LOD: 131 copies/mL). Vi ral nucleic acid ma y persist in vivo, indepe ndent of virus viability . Detection of an alyte target(s) does not imply that the corres ponding virus(es) are i nfectious or are the caus ative agents for clin ical symptoms. Rece nt patient exposur e to FluMist or ot her live attenuated infl uenza vaccines may ca use inaccurate posi tive results.This te st has been authorized by FDA under an EUA fo r use by authorized labo ratories. This test is o nly authorized for the duration of the declaration gerson t circumstances e xist justifying the authorization o f emergency use o f in vitro diagnosti c tests for detection a nd/or diagnosis of CO VID-19 under Section 5 64(b)(1) of the Federal Food, Drug and Cosmet ic Act, 21 U.S.C. 360bbb-3(b)(1), unless the authorizati on is terminated or r evoked sooner. Fact Sh eet for Healthcare Prov iders: https://www.[employer]/ Documents/Xpert %20Xpress %30JVJB-ItW-8-F siddhartha-RSV/30 2-4508%20Rev.%2 0B%20HCP% 20Fact%20Sheet. pdf Fact Sheet for Healt hcare Patients: https://www.[employer]Andela/ Documents/Xpert %20Xpress %53YPBN-BpN-0-F siddhartha-RSV/30 2-4507%20Rev.%2 0B%20Pati ent%20Fact%20Sh eet.pdf SARS-COV-2 SLSL Performed at:[facility] PERFORM[facility] LAB [facility] [id number] (test code = Pierre Aleta Nelson 99705-0) [place] [address] ph: [phone] [facility] [place] (Asymptomatic ONLY[place]2020-09-22 12:08:00 Test Item Value Reference Range Interpretation Comments SARS-COV2/RT-PCR Negative Not Detected, Performanc e of the Xpert (test code = Negative, See Xpress 66899-5) external report SARS-CoV-2/F siddhartha/RSV test for linked test has only bee n established in nasopharyngeal swab specimens. Use of the Xpert Xpress SARS-CoV-2/Flu/ RSV test with other spec imen types has not b een assessed and pe rformance characteristics are unknown. As wi th any molecular test, mutations withi n the targeted geneti c regions identified by raul solis Xpert Xpress SARS-CoV-2/Flu/ RSV test could affect pr albin and/or probe bi nding resulting in fa ilure to detect the pres ence of virus or the vi ike being detected less predictably.Neg ative results do not preclude SARS-CoV-2, Inf luenza A/B, or RSV inf ection and should not be used as the sole bas is for treatment or ot her patient managem ent decisions. Res ults from the Xpert Xpres s SARS-CoV-2/Flu/ RSV test should be corre lated with the clinic al history, epidem iological data, and other data available to th e clinician evalu ating the patient. Inval id test results may occ ur from improper specim en collection; matilde lure to follow the brady mmended sample collecti on, handling, and s torage procedures; nik hnical error. False ne gative results may occ ur if virus is presen t at levels below th e analytical limi t of detection (LOD: 131 copies/mL). Vi ral nucleic acid ma y persist in vivo, indepe ndent of virus viability . Detection of an alyte target(s) does not imply that the corres ponding virus(es) are i nfectious or are the caus ative agents for clin ical symptoms. Rece nt patient exposur e to FluMist or ot her live attenuated infl uenza vaccines may ca use inaccurate posi tive results.This te st has been authorized by FDA under an EUA fo r use by authorized labo ratories. This test is o nly authorized for the duration of the declaration gerson t circumstances e xist justifying the authorization o f emergency use o f in vitro diagnosti c tests for detection a nd/or diagnosis of CO VID-19 under Section 5 64(b)(1) of the Federal Food, Drug and Cosmet ic Act, 21 U.S.C. 360bbb-3(b)(1), unless the authorizati on is terminated or r evoked sooner. Fact Sh eet for Healthcare Prov iders: https://www.[employer].Andela/ Documents/Xpert %20Xpress %00ZWNS-VhY-1-F siddhartha-RSV/30 2-4508%20Rev.%2 0B%20HCP% 20Fact%20Sheet. pdf Fact Sheet for Healt hcare Patients: https://www.[employer]/ Documents/Xpert %20Xpress %85ZJAL-EkM-1-F siddhartha-RSV/30 2-4507%20Rev.%2 0B%20Pati ent%20Fact%20Sh eet.pdf SARS-COV-2 SLSL Performed at:[facility] PERFORM[facility] LAB Amy fine1317 (test code = Ignacio Nelson 17082-7) [place] [address] ph: [phone] [facility] [place] [facility])2020-09-22 12:08:00 Test Item Value Reference Range Interpretation Comments SARS-COV2/RT-PCR Negative Not Detected, Performanc e of the Xpert (test code = Negative, See Xpress 1948300) external report SARS-CoV-2/F siddhartha/RSV test for linked test has only bee n established in nasopharyngeal swab specimens. Use of the Xpert Xpress SARS-CoV-2/Flu/ RSV test with other spec imen types has not b een assessed and pe rformance characteristics are unknown. As wi th any molecular test, mutations withi n the targeted geneti c regions identified by t he Xpert Xpress SARS-CoV-2/Flu/ RSV test could affect pr albin and/or probe bi nding resulting in fa ilure to detect the pres ence of virus or the vi ike being detected less predictably.Neg ative results do not preclude SARS-CoV-2, Inf luenza A/B, or RSV inf ection and should not be used as the sole bas is for treatment or ot her patient managem ent decisions. Res ults from the Xpert Xpres s SARS-CoV-2/Flu/ RSV test should be corre lated with the clinic al history, epidem iological data, and other data available to th e clinician evalu ating the patient. Inval id test results may occ ur from improper specim en collection; matilde lure to follow the brady mmended sample collecti on, handling, and s torage procedures; nik hnical error. False ne gative results may occ ur if virus is presen t at levels below th e analytical limi t of detection (LOD: 131 copies/mL). Vi ral nucleic acid ma y persist in vivo, indepe ndent of virus viability . Detection of an alyte target(s) does not imply that the corres ponding virus(es) are i nfectious or are the caus ative agents for clin ical symptoms. Rece nt patient exposur e to FluMist or oth er live attenuated infl uenza vaccines may ca use inaccurate posi tive results.This te st has been authorized by FDA under an EUA fo r use by authorized labo ratories. This test is o nly authorized for the duration of the declaration gerson t circumstances e xist justifying the authorization o f emergency use o f in vitro diagnosti c tests for detection a nd/or diagnosis of CO VID-19 under Section 5 64(b)(1) of the Federal Food, Drug and Cosmet ic Act, 21 U.S.C. 360bbb-3(b)(1), unless the authorizati on is terminated or r evoked sooner.Fact She et for Healthcare Prov iders: https://www.[employer]/ Documents/Xpert %20Xpress %76XBXE-NdD-5-F siddhartha-RSV/30 2-4508%20Rev.%2 0B%20HCP% 20Fact%20Sheet. pdfFact Sheet for Healt hcare Patients: https://www.[employer]/ Documents/Xpert %20Xpress %39NVPX-MpV-2-F siddhartha-RSV/30 2-4507%20Rev.%2 0B%20Pati ent%20Fact%20Sh eet.pdf SARS-COV-2 SLSL Performed at:[facility] [id number] (test code = [facility] [id number]) [place] [address] ph: [phone] CBC W/PLT COUNT & AUTO [id number] 07:40:00 Test Item Value Reference Range Interpretation Comments WHITE BLOOD CELL COUNT (BEAKER) 9.8 K/ L 4.0-10.0 (test code = 775) RED BLOOD CELL COUNT (BEAKER) 3.66 M/ L 4.20-5.80 L (test code = 761) HEMOGLOBIN (BEAKER) (test code = 10.9 GM/DL 13.0-16.8 L 410) HEMATOCRIT (BEAKER) (test code = 34.2 % 36.0-50.0 L 411) MEAN CORPUSCULAR VOLUME (BEAKER) 93.4 fL 82.0-99.0 (test code = 753) MEAN CORPUSCULAR HEMOGLOBIN 29.8 pg 27.0-33.0 (BEAKER) (test code = 751) MEAN CORPUSCULAR HEMOGLOBIN CONC 31.9 GM/DL 32.0-36.0 L (BEAKER) (test code = 752) RED CELL DISTRIBUTION WIDTH 15.4 % 12.0-15.0 H (BEAKER) (test code = 412) PLATELET COUNT (BEAKER) (test 270 K/CU MM 150-430 code = 756) MEAN PLATELET VOLUME (BEAKER) 10.4 fL 6.0-11.5 (test code = 754) NUCLEATED RED BLOOD CELLS 0 /100 WBC 0-0 (BEAKER) (test code = 413) NEUTROPHILS RELATIVE PERCENT 80 % (BEAKER) (test code = 429) LYMPHOCYTES RELATIVE PERCENT 10 % (BEAKER) (test code = 430) MONOCYTES RELATIVE PERCENT 8 % (BEAKER) (test code = 431) EOSINOPHILS RELATIVE PERCENT 2 % (BEAKER) (test code = 432) BASOPHILS RELATIVE PERCENT 1 % (BEAKER) (test code = 437) NEUTROPHILS ABSOLUTE COUNT 7.83 K/ L 1.80-8.00 (BEAKER) (test code = 670) LYMPHOCYTES ABSOLUTE COUNT 0.98 K/ L 1.48-4.50 L (BEAKER) (test code = 414) MONOCYTES ABSOLUTE COUNT (BEAKER) 0.74 K/ L 0.00-1.30 (test code = 415) EOSINOPHILS ABSOLUTE COUNT 0.15 K/ L 0.00-0.50 (BEAKER) (test code = 416) BASOPHILS ABSOLUTE COUNT (BEAKER) 0.07 K/ L 0.00-0.20 (test code = 417) IMMATURE GRANULOCYTES-RELATIVE 1 % 0-0 H PERCENT (BEAKER) (test code = 2801) [id number] 07:34:00 Test Item Value Reference Interpretation Comments Range Protime (test code = 14.2 See_Comment H Final 5902-2) Information (Auto Output) [Automated message] The system which generated this result transmitted reference range : 9.3 - 12.0 seconds. The reference range was not used to interpret this result as normal/abnormal . INR (test code = 1.30 See_Comment Final 6301-6) Information (Auto Output) [Automated message] The system which generated this result transmitted reference range : <=5.90. The reference range was not used to interpret this result as normal/abnormal . PTT (test code = 28.0 See_Comment Final 64387-2) Information (Auto Output) [Automated message] The system which generated this result transmitted reference range : 23.0 - 35.0 seconds. The reference range was not used to interpret this result as normal/abnormal . ISSA (test code = RECOMMENDED ISSA) COUMADIN/WARFARIN INR THERAPY RANGESSTANDARD DOSE: 2.0 - 3.0 Includes: PROPHYLAXIS for venous thrombosis, systemic embolization; TREATMENT for venous thrombosis and/or pulmonary embolus.HIGH RISK: Target INR is 2.5-3.5 for patients with mechanical heart valves. Lab Interpretation Abnormal (test code = 52639-1) [id number] 07:34:00 Test Item Value Reference Interpretation Comments Range Protime (test code = 14.2 See_Comment H Final 5902-2) Information (Auto Output) [Automated message] The system which generated this result transmitted reference range : 9.3 - 12.0 seconds. The reference range was not used to interpret this result as normal/abnormal . INR (test code = 1.30 See_Comment Final 6301-6) Information (Auto Output) [Automated message] The system which generated this result transmitted reference range : <=5.90. The reference range was not used to interpret this result as normal/abnormal . PTT (test code = 28.0 See_Comment Final 98911-4) Information (Auto Output) [Automated message] The system which generated this result transmitted reference range : 23.0 - 35.0 seconds. The reference range was not used to interpret this result as normal/abnormal . ISSA (test code = RECOMMENDED ISSA) COUMADIN/WARFARIN INR THERAPY RANGESSTANDARD DOSE: 2.0 - 3.0 Includes: PROPHYLAXIS for venous thrombosis, systemic embolization; TREATMENT for venous thrombosis and/or pulmonary embolus.HIGH RISK: Target INR is 2.5-3.5 for patients with mechanical heart valves. Lab Interpretation Abnormal (test code = 89059-0) [facility][id number] 07:34:00 Test Item Value Reference Interpretation Comments Range Protime (test code = 14.2 See_Comment H Final 5902-2) Information (Auto Output) [Automated message] The system which generated this result transmitted reference range : 9.3 - 12.0 seconds. The reference range was not used to interpret this result as normal/abnormal . INR (test code = 1.30 See_Comment Final 6301-6) Information (Auto Output) [Automated message] The system which generated this result transmitted reference range : <=5.90. The reference range was not used to interpret this result as normal/abnormal . PTT (test code = 28.0 See_Comment Final 33930-7) Information (Auto Output) [Automated message] The system which generated this result transmitted reference range : 23.0 - 35.0 seconds. The reference range was not used to interpret this result as normal/abnormal . ISSA (test code = RECOMMENDED ISSA) COUMADIN/WARFARIN INR THERAPY RANGESSTANDARD DOSE: 2.0 - 3.0 Includes: PROPHYLAXIS for venous thrombosis, systemic embolization; TREATMENT for venous thrombosis and/or pulmonary embolus.HIGH RISK: Target INR is 2.5-3.5 for patients with mechanical heart valves. Lab Interpretation Abnormal (test code = 24915-0) [facility][id number] 07:34:00 Test Item Value Reference Interpretation Comments Range Protime (test code = 14.2 See_Comment H Final 5902-2) Information (Auto Output) [Automated message] The system which generated this result transmitted reference range : 9.3 - 12.0 seconds. The reference range was not used to interpret this result as normal/abnormal . INR (test code = 1.30 See_Comment Final 6301-6) Information (Auto Output) [Automated message] The system which generated this result transmitted reference range : <=5.90. The reference range was not used to interpret this result as normal/abnormal . PTT (test code = 28.0 See_Comment Final 34112-9) Information (Auto Output) [Automated message] The system which generated this result transmitted reference range : 23.0 - 35.0 seconds. The reference range was not used to interpret this result as normal/abnormal . ISSA (test code = RECOMMENDED ISSA) COUMADIN/WARFARIN INR THERAPY RANGESSTANDARD DOSE: 2.0 - 3.0 Includes: PROPHYLAXIS for venous thrombosis, systemic embolization; TREATMENT for venous thrombosis and/or pulmonary embolus.HIGH RISK: Target INR is 2.5-3.5 for patients with mechanical heart valves. Lab Interpretation Abnormal (test code = 36111-0) [facility][id number] 07:34:00 Test Item Value Reference Interpretation Comments Range Protime (test code = 14.2 See_Comment H Final 5902-2) Information (Auto Output) [Automated message] The system which generated this result transmitted reference range : 9.3 - 12.0 seconds. The reference range was not used to interpret this result as normal/abnormal . INR (test code = 1.30 See_Comment Final 6301-6) Information (Auto Output) [Automated message] The system which generated this result transmitted reference range : <=5.90. The reference range was not used to interpret this result as normal/abnormal . PTT (test code = 28.0 See_Comment Final 83163-9) Information (Auto Output) [Automated message] The system which generated this result transmitted reference range : 23.0 - 35.0 seconds. The reference range was not used to interpret this result as normal/abnormal . ISSA (test code = RECOMMENDED ISSA) COUMADIN/WARFARIN INR THERAPY RANGESSTANDARD DOSE: 2.0 - 3.0 Includes: PROPHYLAXIS for venous thrombosis, systemic embolization; TREATMENT for venous thrombosis and/or pulmonary embolus.HIGH RISK: Target INR is 2.5-3.5 for patients with mechanical heart valves. Lab Interpretation Abnormal (test code = 53333-0) [facility][id number] 07:34:00 Test Item Value Reference Interpretation Comments Range Protime (test code = 14.2 See_Comment H Final 5902-2) Information (Auto Output) [Automated message] The system which generated this result transmitted reference range : 9.3 - 12.0 seconds. The reference range was not used to interpret this result as normal/abnormal . INR (test code = 1.30 See_Comment Final 6301-6) Information (Auto Output) [Automated message] The system which generated this result transmitted reference range : <=5.90. The reference range was not used to interpret this result as normal/abnormal . PTT (test code = 28.0 See_Comment Final 39539-0) Information (Auto Output) [Automated message] The system which generated this result transmitted reference range : 23.0 - 35.0 seconds. The reference range was not used to interpret this result as normal/abnormal . ISSA (test code = RECOMMENDED ISSA) COUMADIN/WARFARIN INR THERAPY RANGESSTANDARD DOSE: 2.0 - 3.0 Includes: PROPHYLAXIS for venous thrombosis, systemic embolization; TREATMENT for venous thrombosis and/or pulmonary embolus.HIGH RISK: Target INR is 2.5-3.5 for patients with mechanical heart valves. Lab Interpretation Abnormal (test code = 91206-0) [facility][id number] 07:34:00 Test Item Value Reference Interpretation Comments Range Protime (test code = 14.2 See_Comment H Final 5902-2) Information (Auto Output) [Automated message] The system which generated this result transmitted reference range : 9.3 - 12.0 seconds. The reference range was not used to interpret this result as normal/abnormal . INR (test code = 1.30 See_Comment Final 6301-6) Information (Auto Output) [Automated message] The system which generated this result transmitted reference range : <=5.90. The reference range was not used to interpret this result as normal/abnormal . PTT (test code = 28.0 See_Comment Final 21176-5) Information (Auto Output) [Automated message] The system which generated this result transmitted reference range : 23.0 - 35.0 seconds. The reference range was not used to interpret this result as normal/abnormal . ISSA (test code = RECOMMENDED ISSA) COUMADIN/WARFARIN INR THERAPY RANGESSTANDARD DOSE: 2.0 - 3.0 Includes: PROPHYLAXIS for venous thrombosis, systemic embolization; TREATMENT for venous thrombosis and/or pulmonary embolus.HIGH RISK: Target INR is 2.5-3.5 for patients with mechanical heart valves. Lab Interpretation Abnormal (test code = 20290-2) [facility][id number] 07:34:00 Test Item Value Reference Range Interpretation Comments PROTIME (BEAKER) (test 14.2 seconds 9.3-12.0 H Final Information code = 759) (Auto Output) INR (BEAKER) (test 1.30 See_Comment Final Inf ormation code = 370) (Auto Output) [Automated mess age] The system SKINNYprice generated this result transmit josé luis reference range : <=5.90. The reference range was not used to interpret this result as normal/abnormal . PARTIAL THROMBOPLASTIN 28.0 seconds 23.0-35.0 Final Information TIME (CECILIO) (test (Auto Ou tput) code = 760) RECOMMENDED COUMADIN/WARFARIN INR THERAPY RANGESSTANDARD DOSE: 2.0 - 3.0 Includes: PROPHYLAXIS forvenous thrombosis, systemic embolization; TREATMENT for venous thrombosis and/or pulmonary embolus.HIGH RISK: Target INR is 2.5-3.5 for patients with mechanical heart valves.B-TYPE NATRIURETIC FACTOR (BNP)2020-09-22 07:30:00 Test Item Value Reference Range Interpretation Comments B-TYPE NATRIURETIC PEPTIDE 1703 pg/mL 0-100 H (BEAKER) (test code = 700) [employer] ID - [id number] [id number] 07:29:00 Test Item Value Reference Range Interpretation Comments Troponin I (test code = 0.05 ng/mL 0-0.15 59247-5) ISSA (test code = ISSA) Troponin I (TnI) levels must be interpreted in the context of the presenting symptoms and the clinical findings. Elevated TnI levels indicate myocardial damage, but are not specific for ischemic heart disease. Elevated TnI levels are seen in patients with other cardiac conditions (including myocarditis and congestive heart failure), and slight TnI elevations occur in patients with other conditions, including sepsis, renal failure, acidosis, acute neurological disease, and persistent tachyarrhythmia.[facility] ID - [id number] Lab Interpretation (test Normal code = 65415-6) [facility] [id number] 07:29:00 Test Item Value Reference Range Interpretation Comments Troponin I (test code = 0.05 ng/mL 0-0.15 86580-0) ISSA (test code = ISSA) Troponin I (TnI) levels must be interpreted in the context of the presenting symptoms and the clinical findings. Elevated TnI levels indicate myocardial damage, but are not specific for ischemic heart disease. Elevated TnI levels are seen in patients with other cardiac conditions (including myocarditis and congestive heart failure), and slight TnI elevations occur in patients with other conditions, including sepsis, renal failure, acidosis, acute neurological disease, and persistent tachyarrhythmia.[facility] ID - [id number] Lab Interpretation (test Normal code = 97201-1) [facility] [id number] 07:29:00 Test Item Value Reference Range Interpretation Comments Troponin I (test code = 0.05 ng/mL 0-0.15 01556-6) ISSA (test code = ISSA) Troponin I (TnI) levels must be interpreted in the context of the presenting symptoms and the clinical findings. Elevated TnI levels indicate myocardial damage, but are not specific for ischemic heart disease. Elevated TnI levels are seen in patients with other cardiac conditions (including myocarditis and congestive heart failure), and slight TnI elevations occur in patients with other conditions, including sepsis, renal failure, acidosis, acute neurological disease, and persistent tachyarrhythmia.[facility] ID - [id number] Lab Interpretation (test Normal code = 83045-2) [facility] [id number] 07:29:00 Test Item Value Reference Range Interpretation Comments Troponin I (test code = 0.05 ng/mL 0-0.15 69395-3) ISSA (test code = ISSA) Troponin I (TnI) levels must be interpreted in the context of the presenting symptoms and the clinical findings. Elevated TnI levels indicate myocardial damage, but are not specific for ischemic heart disease. Elevated TnI levels are seen in patients with other cardiac conditions (including myocarditis and congestive heart failure), and slight TnI elevations occur in patients with other conditions, including sepsis, renal failure, acidosis, acute neurological disease, and persistent tachyarrhythmia.[facility] ID - [id number] Lab Interpretation (test Normal code = 13737-2) [facility] [id number] 07:29:00 Test Item Value Reference Range Interpretation Comments Troponin I (test code = 0.05 ng/mL 0.00-0.15 43277-7) ISSA (test code = ISSA) Troponin I (TnI) levels must be interpreted in the context of the presenting symptoms and the clinical findings. Elevated TnI levels indicate myocardial damage, but are not specific for ischemic heart disease. Elevated TnI levels are seen in patients with other cardiac conditions (including myocarditis and congestive heart failure), and slight TnI elevations occur in patients with other conditions, including sepsis, renal failure, acidosis, acute neurological disease, and persistent tachyarrhythmia.[email or web address] ID - [id number] Lab Interpretation (test Normal code = 72404-5) [facility] [id number] 07:29:00 Test Item Value Reference Range Interpretation Comments Troponin I (test code = 0.05 ng/mL 0.00-0.15 12545-2) ISSA (test code = ISSA) Troponin I (TnI) levels must be interpreted in the context of the presenting symptoms and the clinical findings. Elevated TnI levels indicate myocardial damage, but are not specific for ischemic heart disease. Elevated TnI levels are seen in patients with other cardiac conditions (including myocarditis and congestive heart failure), and slight TnI elevations occur in patients with other conditions, including sepsis, renal failure, acidosis, acute neurological disease, and persistent tachyarrhythmia.[facility] ID - [id number] Lab Interpretation (test Normal code = 96484-8) [facility] [id number] 07:29:00 Test Item Value Reference Range Interpretation Comments Troponin I (test code = 0.05 ng/mL 0.00-0.15 59422-7) ISSA (test code = ISSA) Troponin I (TnI) levels must be interpreted in the context of the presenting symptoms and the clinical findings. Elevated TnI levels indicate myocardial damage, but are not specific for ischemic heart disease. Elevated TnI levels are seen in patients with other cardiac conditions (including myocarditis and congestive heart failure), and slight TnI elevations occur in patients with other conditions, including sepsis, renal failure, acidosis, acute neurological disease, and persistent tachyarrhythmia.[facility] ID - [id number] Lab Interpretation (test Normal code = 94069-8) [facility] [id number] 07:29:00 Test Item Value Reference Range Interpretation Comments TROPONIN I (BEAKER) (test code = 0.05 ng/mL 0.00-0.15 397) Troponin I (TnI) levels must be interpreted in the context of the presenting symptoms and the clinical findings. Elevated TnI levels indicate myocardial damage, but are not specific for ischemic heart disease. Elevated TnI levels are seen in patients with other cardiac conditions (including myocarditis and congestive heart failure), and slight TnI elevations occur in patients with other conditions, including sepsis, renal failure, acidosis, acute neurological disease, and persistent tachyarrhythmia.[employer] ID - [id number] METABOLIC [id number] 07:25:00 Test Item Value Reference Range Interpretation Comments SODIUM (BEAKER) 140 meq/L 135-148 (test code = 381) POTASSIUM (BEAKER) 3.4 meq/L 3.6-5.5 L (test code = 379) CHLORIDE (BEAKER) 100 meq/L 98-106 (test code = 382) CO2 (BEAKER) (test 29 meq/L 20-29 code = 355) BLOOD UREA NITROGEN 50 mg/dL 10-26 H (BEAKER) (test code = 354) CREATININE (BEAKER) 1.97 mg/dL 0.50-1.20 H (test code = 358) GLUCOSE RANDOM 194 mg/dL 70-110 H (BEAKER) (test code = 652) CALCIUM (BEAKER) 9.0 mg/dL 8.5-10.5 (test code = 697) EGFR (BEAKER) (test 37 mL/min/1.73 ESTIMA JOSÉ LUIS GFR IS code = 1092) sq m NOT ACCURATE CREATININE CLEARANCE IN PREDICTING GLOMERULAR FILTRATION RATE . ESTIMATED GFR I S NOT APPLICABLE FOR DIALYSIS PATIEN TS. [employer] ID - [id number] ID - [id number] ID - [id number] ID - [id number] ID - [id number] ID - [id number] ID - [id number] ID - [id number] ID - [id number] ID - [id number] ID - [id number] ID - [id number] ID - [id number], CHEST, 1 VIEW, NON [id number] 06:44:00Reason for exam:->SHORTNESS OF BREATHReason for exam:->CHEST PAINShould this be performed at the bedside?->Yes [facility] : 1975 Sex: MFINAL REPORT Chest one view. Clinical history: Chest and shortness of breath. Comparison: Chest radiograph 07/15/2019. Technique: A single frontal view of the chest was obtained. Findings:There is a left-sided pacemaker with leads over in the right atrium and right ventricle.The cardiac silhouette is mildly enlarged. There are atherosclerotic calcifications of the aortic knob. There is pulmonary vascular congestion and a small left pleural effusion. There is no pneumothorax. The osseous structures are unremarkable. Impression: Pulmonary vascular congestion and small left pleural effusion. No pneumothorax.Mild cardiomegaly. Signed: Moose Petersen Verified Date/Time: 09/22/2020 06:44:53 0 6:44 AMXR chest 1 view portable / [id number] 06:44:00Interface, External Ris In - 09/22/2020 6:47 AM CDTFINAL REPORT Chest one view. Clinical history: Chest and shortness of breath. Comparison: Chest radiograph 07/15/2019. Technique: A single frontal view of the chest was obtained. Findings:There is a left-sided pacemaker with leads over in the right atrium and right ventricle.The cardiac silhouette is mildly enlarged. There are atherosclerotic calcifications of the aortic knob. There is pulmonary vascular congestion and a small left pleural effusion. There is no pneumothorax. The osseous structures are unremarkable. Impression: Pulmonary vascular congestion and small left pleural effusion. No pneumothorax.Mild cardiomegaly.Signed: Moose Petersen Verified Date/Time: 09/22/2020 06:44:53 [facility] / [id number] 06:44:00 Interface, External Ris In - 09/22/2020 6:47 AM CDTFINAL REPORT Chest one view. Clinical history: Chest and shortness of breath. Comparison: Chest radiograph 07/15/2019. Technique: A single frontal view of the chest was obtained. Findings:There is a left-sided pacemaker with leads over in the right atrium and right ventricle.The cardiac silhouette is mildly enlarged. There are atherosclerotic calcifications of the aortic knob. There is pulmonary vascular congestion and a small left pleural effusion. There is no pneumothorax. The osseous structures are unremarkable. Impression: Pulmonary vascular congestion and small left pleural effusion. No pneumothorax.Mild cardiomegaly. Signed: Moose Petersen Verified Date/Time: 09/22/2020 06:44:53 [facility] / [id number] 06:44:00 Interface, External Ris In - 09/22/2020 6:47 AM CDTFINAL REPORT Chest one view. Clinical history: Chest and shortness of breath. Comparison: Chest radiograph 07/15/2019. Technique: A single frontal view of the chest was obtained. Findings:There is a left-sided pacemaker with leads over in the right atrium and right ventricle.The cardiac silhouette is mildly enlarged. There are atherosclerotic calcifications of the aortic knob. There is pulmonary vascular congestion and a small left pleural effusion. There is no pneumothorax. The osseous structures are unremarkable. Impression: Pulmonary vascular congestion and small left pleural effusion. No pneumothorax.Mild cardiomegaly. Signed: Moose Petersen Verified Date/Time: 09/22/2020 06:44:53 [facility] / [id number] 06:44:00 Interface, External Ris In - 09/22/2020 6:47 AM CDTFINAL REPORT Chest one view. Clinical history: Chest and shortness of breath. Comparison: Chest radiograph 07/15/2019. Technique: A single frontal view of the chest was obtained. Findings:There is a left-sided pacemaker with leads over in the right atrium and right ventricle.The cardiac silhouette is mildly enlarged. There are atherosclerotic calcifications of the aortic knob. There is pulmonary vascular congestion and a small left pleural effusion. There is no pneumothorax. The osseous structures are unremarkable. Impression: Pulmonary vascular congestion and small left pleural effusion. No pneumothorax.Mild cardiomegaly. Signed: Moose Petersen Verified Date/Time: 09/22/2020 06:44:53 [facility] [id number] 06:40:53 Test Item Value Reference Range Interpretation Comments ISSA (test code = ISSA) David Riddle MD 09/22/2020 6:48 AMECG/EKG Interpretation Date/Time: 09/22/2020 6:43 AMPerformed by: David Riddle MDAuthorized by: David Riddle MD The ECG was interpreted by ED physician. The ECG is interpreted as sinus rhythm. Ectopy noted: Pulmonary disease pattern. Rate is normal rate. Heart rate is 74 BPM.Abnormal conduction noted: LAFB.T waves abnormal. [place] is normal. Other findings include: prolonged QTc interval. Clinical Impression: abnormal ECG Lab Interpretation Abnormal (test code = 84691-4) [facility] [id number] 06:40:53 Test Item Value Reference Range Interpretation Comments ISSA (test code = ISSA) David Riddle MD 09/22/2020 6:48 AMECG/EKG Interpretation Date/Time: 09/22/2020 6:43 AMPerformed by: David Riddle MDAuthorized by: David Riddle MD The ECG was interpreted by ED physician. The ECG is interpreted as sinus rhythm. Ectopy noted: Pulmonary disease pattern. Rate is normal rate. Heart rate is 74 BPM.Abnormal conduction noted: LAFB.T waves abnormal. [place] is normal. Other findings include: prolonged QTc interval. Clinical Impression: abnormal ECG Lab Interpretation Abnormal (test code = 51106-3) [facility] [id number] 06:40:53 Test Item Value Reference Range Interpretation Comments ISSA (test code = ISSA) David Riddle MD 09/22/2020 6:48 AMECG/EKG Interpretation Date/Time: 09/22/2020 6:43 AMPerformed by: David Riddle MDAuthorized by: David Riddle MD The ECG was interpreted by ED physician. The ECG is interpreted as sinus rhythm. Ectopy noted: Pulmonary disease pattern. Rate is normal rate. Heart rate is 74 BPM.Abnormal conduction noted: LAFB.T waves abnormal. [place] is normal. Other findings include: prolonged QTc interval. Clinical Impression: abnormal ECG Lab Interpretation Abnormal (test code = 75920-1) [facility] [id number] 06:40:53 Test Item Value Reference Range Interpretation Comments ISSA (test code = ISSA) David Riddle MD 09/22/2020 6:48 AMECG/EKG Interpretation Date/Time: 09/22/2020 6:43 AMPerformed by: David Riddle MDAuthorized by: David Riddle MD The ECG was interpreted by ED physician. The ECG is interpreted as sinus rhythm. Ectopy noted: Pulmonary disease pattern. Rate is normal rate. Heart rate is 74 BPM.Abnormal conduction noted: LAFB.T waves abnormal. [place] is normal. Other findings include: prolonged QTc interval. Clinical Impression: abnormal ECG Lab Interpretation Abnormal (test code = 16346-9) [facility] [id number] 06:40:53 Test Item Value Reference Range Interpretation Comments ISSA (test code = ISSA) David Riddle MD 09/22/2020 6:48 AMECG/EKG Interpretation Date/Time: 09/22/2020 6:43 AMPerformed by: David Riddle MDAuthorized by: David Riddle MD The ECG was interpreted by ED physician. The ECG is interpreted as sinus rhythm. Ectopy noted: Pulmonary disease pattern. Rate is normal rate. Heart rate is 74 BPM.Abnormal conduction noted: LAFB.T waves abnormal. [place] is normal. Other findings include: prolonged QTc interval. Clinical Impression: abnormal ECG Lab Interpretation Abnormal (test code = 46007-8) [facility] [id number] 06:40:53 Test Item Value Reference Range Interpretation Comments ISSA (test code = ISSA) David Riddle MD 09/22/2020 6:48 AMECG/EKG Interpretation Date/Time: 09/22/2020 6:43 AMPerformed by: David Riddle MDAuthorized by: David Riddle MD The ECG was interpreted by ED physician. The ECG is interpreted as sinus rhythm. Ectopy noted: Pulmonary disease pattern. Rate is normal rate. Heart rate is 74 BPM.Abnormal conduction noted: LAFB.T waves abnormal. [place] is normal. Other findings include: prolonged QTc interval. Clinical Impression: abnormal ECG Lab Interpretation Abnormal (test code = 47897-4) [facility] [id number] 06:40:53 Test Item Value Reference Range Interpretation Comments ISSA (test code = ISSA) David Riddle MD 09/22/2020 6:48 AMECG/EKG Interpretation Date/Time: 09/22/2020 6:43 AMPerformed by: David Riddle MDAuthorized by: David Riddle MD The ECG was interpreted by ED physician. The ECG is interpreted as sinus rhythm. Ectopy noted: Pulmonary disease pattern. Rate is normal rate. Heart rate is 74 BPM.Abnormal conduction noted: LAFB.T waves abnormal. [place] is normal. Other findings include: prolonged QTc interval. Clinical Impression: abnormal ECG Lab Interpretation Abnormal (test code = 43568-5) [facility]-[id number] 00:00:00Ordered by an unspecified provider.[facility]-[id number] 00:00:00 Ordered by an unspecified provider.[facility]-SCANNED 2020-09-22 00:00:00Ordered by an unspecified provider.[facility]-[id number] 00:00:00Ordered by an unspecified provider.[facility] Description: Natriuretic peptide B [Mass/volume] in Serum or [id number] 15:06:00 Test Item Value Reference Range Interpretation Comments B-Type Natriuretic Peptide (test 614.6 pg/mL 0.0-100.0 H code = 24233-2) [facility] Description: Natriuretic peptide B [Mass/volume] in Serum or [id number] 15:06:00 Test Item Value Reference Range Interpretation Comments B-Type Natriuretic Peptide (test 614.6 pg/mL 0.0-100.0 H code = 63318-7) [facility] Description: Natriuretic peptide B [Mass/volume] in Serum or [id number] 15:06:00 Test Item Value Reference Range Interpretation Comments B-Type Natriuretic Peptide (test 614.6 pg/mL 0.0-100.0 H code = 81616-4) [facility] Description: Natriuretic peptide B [Mass/volume] in Serum or [id number] 15:06:00 Test Item Value Reference Range Interpretation Comments B-Type Natriuretic Peptide (test 614.6 pg/mL 0.0-100.0 H code = 58018-2) [facility] Description: Natriuretic peptide B [Mass/volume] in Serum or [id number] 15:06:00 Test Item Value Reference Range Interpretation Comments B-Type Natriuretic Peptide (test 614.6 pg/mL 0.0-100.0 H code = 48302-2) [facility] Description: Natriuretic peptide B [Mass/volume] in Serum or [id number] 15:06:00 Test Item Value Reference Range Interpretation Comments B-Type Natriuretic Peptide (test 614.6 pg/mL 0.0-100.0 H code = 20630-2) [facility] Description: Natriuretic peptide B [Mass/volume] in Serum or [id number] 15:06:00 Test Item Value Reference Range Interpretation Comments B-Type Natriuretic Peptide (test 614.6 pg/mL 0.0-100.0 H code = 01135-7) [facility] Description: Natriuretic peptide B [Mass/volume] in Serum or [id number] 15:06:00 Test Item Value Reference Range Interpretation Comments B-Type Natriuretic Peptide (test 614.6 pg/mL 0.0-100.0 H code = 07486-9) [facility] Description: Natriuretic peptide B [Mass/volume] in Serum or [id number] 15:06:00 Test Item Value Reference Range Interpretation Comments B-Type Natriuretic Peptide (test 614.6 pg/mL 0.0-100.0 H code = 33272-3) [facility] Description: Natriuretic peptide B [Mass/volume] in Serum or [id number] 15:06:00 Test Item Value Reference Range Interpretation Comments B-Type Natriuretic Peptide (test 614.6 pg/mL 0.0-100.0 H code = 35079-4) [facility] Description: Lipid [id number] 01:45:00 Test Item Value Reference Range Interpretation Comments Cholesterol, Total (test code = 207 mg/dL 100-199 H 2093-3) Triglycerides (test code = 2571-8) 126 mg/dL 0-149 HDL Cholesterol (test code = 37 mg/dL >39 L 5-9) VLDL Cholesterol Renuka (test code = 23 mg/dL 5-40 81970-1) LDL Chol Calc (NIH) (test code = 147 mg/dL 0-99 H 99104-1) Comment: (test code = 05284-4) [facility]: Lipid [id number] 01:45:00 Test Item Value Reference Range Interpretation Comments Cholesterol, Total (test code = 207 mg/dL 100-199 H 2093-3) Triglycerides (test code = 2571-8) 126 mg/dL 0-149 HDL Cholesterol (test code = 37 mg/dL >39 L 5-9) VLDL Cholesterol Renuka (test code = 23 mg/dL 5-40 12259-8) LDL Chol Calc (NIH) (test code = 147 mg/dL 0-99 H 01342-7) Comment: (test code = 52824-6) [facility] Description: Lipid [id number] 01:45:00 Test Item Value Reference Range Interpretation Comments Cholesterol, Total (test code = 207 mg/dL 100-199 H 2093-3) Triglycerides (test code = 2571-8) 126 mg/dL 0-149 HDL Cholesterol (test code = 37 mg/dL >39 L 5-9) VLDL Cholesterol Renuka (test code = 23 mg/dL 5-40 61529-3) LDL Chol Calc (NIH) (test code = 147 mg/dL 0-99 H 32394-9) Comment: (test code = 93046-1) [employer] Description: Lipid [id number] 01:45:00 Test Item Value Reference Range Interpretation Comments Cholesterol, Total (test code = 207 mg/dL 100-199 H 2093-3) Triglycerides (test code = 2571-8) 126 mg/dL 0-149 HDL Cholesterol (test code = 37 mg/dL >39 L 5-9) VLDL Cholesterol Renuka (test code = 23 mg/dL 5-40 28121-1) LDL Chol Calc (NIH) (test code = 147 mg/dL 0-99 H 91183-4) Comment: (test code = 27522-6) [employer] Description: Lipid [id number] 01:45:00 Test Item Value Reference Range Interpretation Comments Cholesterol, Total (test code = 207 mg/dL 100-199 H 2093-3) Triglycerides (test code = 2571-8) 126 mg/dL 0-149 HDL Cholesterol (test code = 37 mg/dL >39 L 2084-9) VLDL Cholesterol Renuka (test code = 23 mg/dL 5-40 25349-5) LDL Chol Calc (NIH) (test code = 147 mg/dL 0-99 H 64900-2) Comment: (test code = 33794-3) [employer] Description: Lipid [id number] 01:45:00 Test Item Value Reference Range Interpretation Comments Cholesterol, Total (test code = 207 mg/dL 100-199 H 2093-3) Triglycerides (test code = 2571-8) 126 mg/dL 0-149 HDL Cholesterol (test code = 37 mg/dL >39 L 2084-9) VLDL Cholesterol Renuka (test code = 23 mg/dL 5-40 79676-8) LDL Chol Calc (NIH) (test code = 147 mg/dL 0-99 H 17026-7) Comment: (test code = 13495-2) [employer] Description: Lipid [id number] 01:45:00 Test Item Value Reference Range Interpretation Comments Cholesterol, Total (test code = 207 mg/dL 100-199 H 2093-3) Triglycerides (test code = 2571-8) 126 mg/dL 0-149 HDL Cholesterol (test code = 37 mg/dL >39 L 5-9) VLDL Cholesterol Renuka (test code = 23 mg/dL 5-40 67352-6) LDL Chol Calc (NIH) (test code = 147 mg/dL 0-99 H 53430-8) Comment: (test code = 29358-6) [employer] Description: Lipid [id number] 01:45:00 Test Item Value Reference Range Interpretation Comments Cholesterol, Total (test code = 207 mg/dL 100-199 H 3-3) Triglycerides (test code = 2571-8) 126 mg/dL 0-149 HDL Cholesterol (test code = 37 mg/dL >39 L 5-9) VLDL Cholesterol Renuka (test code = 23 mg/dL 5-40 69581-3) LDL Chol Calc (NIH) (test code = 147 mg/dL 0-99 H 16247-2) Comment: (test code = 61831-9) [employer] Description: Lipid [id number] 01:45:00 Test Item Value Reference Range Interpretation Comments Cholesterol, Total (test code = 207 mg/dL 100-199 H 3-3) Triglycerides (test code = 2571-8) 126 mg/dL 0-149 HDL Cholesterol (test code = 37 mg/dL >39 L 5-9) VLDL Cholesterol Renuka (test code = 23 mg/dL 5-40 12664-7) LDL Chol Calc (NIH) (test code = 147 mg/dL 0-99 H 90496-0) Comment: (test code = 73127-1) [employer] Description: Lipid [id number] 01:45:00 Test Item Value Reference Range Interpretation Comments Cholesterol, Total (test code = 207 mg/dL 100-199 H 3-3) Triglycerides (test code = 2571-8) 126 mg/dL 0-149 HDL Cholesterol (test code = 37 mg/dL >39 L 5-9) VLDL Cholesterol Ren[place] (test code = 23 mg/dL 5-40 82687-7) LDL Chol Calc (NIH) (test code = 147 mg/dL 0-99 H 57914-5) Comment: (test code = 85822-4) [facility] Description: Comp. Metabolic Panel (14)2020-08-16 01:19:00 Test Item Value Reference Range Interpretation Comments Glucose (test code 424 mg/dL 65-99 H = 2345-7) BUN (test code = 27 mg/dL 6-24 H 3094-0) Creatinine (test 1.88 mg/dL 0.76-1.27 H code = 2160-0) eGFR If NonAfricn 42 >59 L Am (test code = mL/min/1.73 30935-2) eGFR If Africn Am 48 >59 L [facility] currently (test code = mL/min/1.73 [place] [address]-4) compliance with the current recommendations of the [employer] Kid[employer] Foundation. [place] will update re porting as new guidelin es are published from the NKF-ASN Task force.
<br/ >Perfor med by:
[facility] [place] [facility] ([place])

BUN/Creatinine 14 9-20 Ratio (test code = 3097-3) Sodium (test code = 138 mmol/L 822-201 9873-2) Potassium (test 4.2 mmol/L 3.5-5.2 code = 2823-3) Chloride (test code 98 mmol/L 96-106 = 2075-0) Carbon Dioxide, 28 mmol/L 20-29 Total (test code = 2027-9) Calcium (test code 8.4 mg/dL 8.7-10.2 L = 61415-5) Protein, Total 6.1 g/dL 6.0-8.5 (test code = 2885-2) Albumin (test code 3.0 g/dL 4.0-5.0 L = 1751-7) Globulin, Total 3.1 g/dL 1.5-4.5 (test code = 76143-6) A/G Ratio (test 1.0 1.2-2.2 L code = 1759-0) Bilirubin, Total 0.6 mg/dL 0.0-1.2 (test code = 1975-2) Alkaline 130 IU/L 48-121 H Phosphatase (test Pl ease note code = 6768-6) reference int erval change
<b r/>Perf ormed by:
[facility] ([place])

AST (SGOT) (test 15 IU/L 0-40 code = 1920-8) ALT (SGPT) (test 18 IU/L 0-44 code = 1742-6) [facility] Description: Comp. Metabolic Panel (14)2020-08-16 01:19:00 Test Item Value Reference Range Interpretation Comments Glucose (test code 424 mg/dL 65-99 H = 2345-7) BUN (test code = 27 mg/dL 6-24 H 3094-0) Creatinine (test 1.88 mg/dL 0.76-1.27 H code = 2160-0) eGFR If NonAfricn 42 >59 L Am (test code = mL/min/1.73 73696-7) eGFR If Africn Am 48 >59 L [facility] currently (test code = mL/min/1.73 [place] [address]-4) compliance with the current recommendations of the National Kidney Foundation. [place] will update re porting as new guidelin es are published from the NKF-ASN Task force.
<br/ >Perfor med by:
[facility] [place] [facility] ([place])

BUN/Creatinine 14 9-20 Ratio (test code = 3097-3) Sodium (test code = 138 mmol/L 941-527 8106-2) Potassium (test 4.2 mmol/L 3.5-5.2 code = 2823-3) Chloride (test code 98 mmol/L 96-106 = 2075-0) Carbon Dioxide, 28 mmol/L 20-29 Total (test code = 2027-) Calcium (test code 8.4 mg/dL 8.7-10.2 L = 63944-7) Protein, Total 6.1 g/dL 6.0-8.5 (test code = 2885-2) Albumin (test code 3.0 g/dL 4.0-5.0 L = 1751-7) Globulin, Total 3.1 g/dL 1.5-4.5 (test code = 80296-5) A/G Ratio (test 1.0 1.2-2.2 L code = 1759-0) Bilirubin, Total 0.6 mg/dL 0.0-1.2 (test code = 1974-2) Alkaline 130 IU/L 48-121 H Phosphatase (test Pl ease note code = 6768-6) reference int erval change
<b r/>Perf ormed by:
[facility] ([place])

AST (SGOT) (test 15 IU/L 0-40 code = 1920-8) ALT (SGPT) (test 18 IU/L 0-44 code = 1742-6) [facility] Description: Comp. Metabolic Panel (14)2020-08-16 01:19:00 Test Item Value Reference Range Interpretation Comments Glucose (test code 424 mg/dL 65-99 H = 2345-7) BUN (test code = 27 mg/dL 6-24 H 3094-0) Creatinine (test 1.88 mg/dL 0.76-1.27 H code = 2160-0) eGFR If NonAfricn 42 >59 L Am (test code = mL/min/1.73 42184-2) eGFR If Africn Am 48 >59 L [facility] currently (test code = mL/min/1.73 [place] [address]-9) compliance with the current recommendations of the National Kidney Foundation. [place] will update re porting as new guidelin es are published from the NKF-ASN Task force.
<br/ >Perfor med by:
[facility] [place] [facility] ([place])

BUN/Creatinine 14 9-20 Ratio (test code = 3097-3) Sodium (test code = 138 mmol/L 542-125 4633-2) Potassium (test 4.2 mmol/L 3.5-5.2 code = 2823-3) Chloride (test code 98 mmol/L 96-106 = 2075-0) Carbon Dioxide, 28 mmol/L 20-29 Total (test code = 2027-) Calcium (test code 8.4 mg/dL 8.7-10.2 L = 97788-5) Protein, Total 6.1 g/dL 6.0-8.5 (test code = 2885-2) Albumin (test code 3.0 g/dL 4.0-5.0 L = 1751-7) Globulin, Total 3.1 g/dL 1.5-4.5 (test code = 60324-5) A/G Ratio (test 1.0 1.2-2.2 L code = 1759-0) Bilirubin, Total 0.6 mg/dL 0.0-1.2 (test code = 1975-2) Alkaline 130 IU/L 48-121 H Phosphatase (test Pl ease note code = 6768-6) reference int erval change
<b r/>Perf ormed by:
[facility] ([place])

AST (SGOT) (test 15 IU/L 0-40 code = 1920-8) ALT (SGPT) (test 18 IU/L 0-44 code = 1742-6) [facility] Description: Comp. Metabolic Panel (14)2020-08-16 01:19:00 Test Item Value Reference Range Interpretation Comments Glucose (test code 424 mg/dL 65-99 H = 2345-7) BUN (test code = 27 mg/dL 6-24 H 3094-0) Creatinine (test 1.88 mg/dL 0.76-1.27 H code = 2160-0) eGFR If NonAfricn 42 >59 L Am (test code = mL/min/1.73 18968-1) eGFR If Africn Am 48 >59 L [facility] currently (test code = mL/min/1.73 [place] [address]-0) compliance with the current recommendations of the National Kidney Foundation. [facility] [place] will update re porting as new guidelin es are published from the NKF-ASN Task force.
<br/ >Perfor med by:
[facility] [place] [facility] ([place])

BUN/Creatinine 14 9-20 Ratio (test code = 3097-3) Sodium (test code = 138 mmol/L 263-443 6492-2) Potassium (test 4.2 mmol/L 3.5-5.2 code = 2823-3) Chloride (test code 98 mmol/L 96-106 = 2075-0) Carbon Dioxide, 28 mmol/L 20-29 Total (test code = 2027-) Calcium (test code 8.4 mg/dL 8.7-10.2 L = 62788-0) Protein, Total 6.1 g/dL 6.0-8.5 (test code = 2885-2) Albumin (test code 3.0 g/dL 4.0-5.0 L = 1751-7) Globulin, Total 3.1 g/dL 1.5-4.5 (test code = 95985-0) A/G Ratio (test 1.0 1.2-2.2 L code = 1759-0) Bilirubin, Total 0.6 mg/dL 0.0-1.2 (test code = 1975-2) Alkaline 130 IU/L 48-121 H Phosphatase (test Pl ease note code = 6768-6) reference int erval change
<b r/>Perf ormed by:
[facility] ([place])

AST (SGOT) (test 15 IU/L 0-40 code = 1920-8) ALT (SGPT) (test 18 IU/L 0-44 code = 1742-6) [facility] Description: Comp. Metabolic Panel (14)2020-08-16 01:19:00 Test Item Value Reference Range Interpretation Comments Glucose (test code 424 mg/dL 65-99 H = 2345-7) BUN (test code = 27 mg/dL 6-24 H 3094-0) Creatinine (test 1.88 mg/dL 0.76-1.27 H code = 2160-0) eGFR If NonAfricn 42 >59 L Am (test code = mL/min/1.73 10154-6) eGFR If Africn Am 48 >59 L [facility] currently (test code = mL/min/1.73 [place] 8[address]89-5) compliance with the current recommendations of the National Kidney Foundation. [place] will update re porting as new guidelin es are published from the NKF-ASN Task force.
<br/ >Perfor med by:
[facility] [place] [facility] ([place])

BUN/Creatinine 14 9-20 Ratio (test code = 3097-3) Sodium (test code = 138 mmol/L 291-193 4005-2) Potassium (test 4.2 mmol/L 3.5-5.2 code = 2823-3) Chloride (test code 98 mmol/L 96-106 = 2075-0) Carbon Dioxide, 28 mmol/L 20-29 Total (test code = 2027-) Calcium (test code 8.4 mg/dL 8.7-10.2 L = 26402-7) Protein, Total 6.1 g/dL 6.0-8.5 (test code = 2885-2) Albumin (test code 3.0 g/dL 4.0-5.0 L = 1751-7) Globulin, Total 3.1 g/dL 1.5-4.5 (test code = 61349-7) A/G Ratio (test 1.0 1.2-2.2 L code = 1759-0) Bilirubin, Total 0.6 mg/dL 0.0-1.2 (test code = 1975-2) Alkaline 130 IU/L 48-121 H Phosphatase (test Pl ease note code = 6768-6) reference int erval change
<b r/>Perf ormed by:
[facility] ([place])

AST (SGOT) (test 15 IU/L 0-40 code = 1920-8) ALT (SGPT) (test 18 IU/L 0-44 code = 1742-6) [facility] Description: Comp. Metabolic Panel (14)2020-08-16 01:19:00 Test Item Value Reference Range Interpretation Comments Glucose (test code 424 mg/dL 65-99 H = 2345-7) BUN (test code = 27 mg/dL 6-24 H 3094-0) Creatinine (test 1.88 mg/dL 0.76-1.27 H code = 2160-0) eGFR If NonAfricn 42 >59 L Am (test code = mL/min/1.73 10138-1) eGFR If Africn Am 48 >59 L [facility] currently (test code = mL/min/1.73 [place] [address]-8) compliance with the current recommendations of the National Kidney Foundation. [place] will update re porting as new guidelin es are published from the NKF-ASN Task force.
<br/ >Perfor med by:
[facility] [place] [facility] ([place])

BUN/Creatinine 14 9-20 Ratio (test code = 3097-3) Sodium (test code = 138 mmol/L 330-597 7888-2) Potassium (test 4.2 mmol/L 3.5-5.2 code = 2823-3) Chloride (test code 98 mmol/L 96-106 = 2075-0) Carbon Dioxide, 28 mmol/L 20-29 Total (test code = 2027-) Calcium (test code 8.4 mg/dL 8.7-10.2 L = 87276-7) Protein, Total 6.1 g/dL 6.0-8.5 (test code = 2885-2) Albumin (test code 3.0 g/dL 4.0-5.0 L = 1751-7) Globulin, Total 3.1 g/dL 1.5-4.5 (test code = 03426-0) A/G Ratio (test 1.0 1.2-2.2 L code = 1759-0) Bilirubin, Total 0.6 mg/dL 0.0-1.2 (test code = 1974-2) Alkaline 130 IU/L 48-121 H Phosphatase (test Pl ease note code = 6768-6) reference int erval change
<b r/>Perf ormed by:
[facility] ([place])

AST (SGOT) (test 15 IU/L 0-40 code = 1920-8) ALT (SGPT) (test 18 IU/L 0-44 code = 1742-6) [facility] Description: Comp. Metabolic Panel (14)2020-08-16 01:19:00 Test Item Value Reference Range Interpretation Comments Glucose (test code 424 mg/dL 65-99 H = 2345-7) BUN (test code = 27 mg/dL 6-24 H 3094-0) Creatinine (test 1.88 mg/dL 0.76-1.27 H code = 2160-0) eGFR If NonAfricn 42 >59 L Am (test code = mL/min/1.73 85061-7) eGFR If Africn Am 48 >59 L [facility] currently (test code = mL/min/1.73 [place] [address]-8) compliance with the current recommendations of the National Kidney Foundation. [place] will update re porting as new guidelin es are published from the NKF-ASN Task force.
<br/ >Perfor med by:
[facility] [place] [facility] ([place])

BUN/Creatinine 14 9-20 Ratio (test code = 3097-3) Sodium (test code = 138 mmol/L 174-874 1988-2) Potassium (test 4.2 mmol/L 3.5-5.2 code = 2823-3) Chloride (test code 98 mmol/L 96-106 = 2075-0) Carbon Dioxide, 28 mmol/L 20-29 Total (test code = 2027-9) Calcium (test code 8.4 mg/dL 8.7-10.2 L = 61531-3) Protein, Total 6.1 g/dL 6.0-8.5 (test code = 2885-2) Albumin (test code 3.0 g/dL 4.0-5.0 L = 1751-7) Globulin, Total 3.1 g/dL 1.5-4.5 (test code = 32158-2) A/G Ratio (test 1.0 1.2-2.2 L code = 1759-0) Bilirubin, Total 0.6 mg/dL 0.0-1.2 (test code = 1975-2) Alkaline 130 IU/L 48-121 H Phosphatase (test Pl ease note code = 6768-6) reference int erval change
<b r/>Perf ormed by:
[facility] ([place])

AST (SGOT) (test 15 IU/L 0-40 code = 1920-8) ALT (SGPT) (test 18 IU/L 0-44 code = 1742-6) [facility] Description: Comp. Metabolic Panel (14)2020-08-16 01:19:00 Test Item Value Reference Range Interpretation Comments Glucose (test code 424 mg/dL 65-99 H = 2345-7) BUN (test code = 27 mg/dL 6-24 H 3094-0) Creatinine (test 1.88 mg/dL 0.76-1.27 H code = 2160-0) eGFR If NonAfricn 42 >59 L Am (test code = mL/min/1.73 09693-0) eGFR If Africn Am 48 >59 L [facility] currently (test code = mL/min/1.73 [place] [address]-8) compliance with the current recommendations of the National Kidney Foundation. [facility] [place] will update re porting as new guidelin es are published from the NKF-ASN Task force.
<br/ >Perfor med by:
[facility] [place] [facility] ([place])

BUN/Creatinine 14 9-20 Ratio (test code = 3097-3) Sodium (test code = 138 mmol/L 317-674 0720-2) Potassium (test 4.2 mmol/L 3.5-5.2 code = 2823-3) Chloride (test code 98 mmol/L 96-106 = 2075-0) Carbon Dioxide, 28 mmol/L 20-29 Total (test code = 2027-9) Calcium (test code 8.4 mg/dL 8.7-10.2 L = 51527-3) Protein, Total 6.1 g/dL 6.0-8.5 (test code = 2885-2) Albumin (test code 3.0 g/dL 4.0-5.0 L = 1751-7) Globulin, Total 3.1 g/dL 1.5-4.5 (test code = 06291-3) A/G Ratio (test 1.0 1.2-2.2 L code = 1759-0) Bilirubin, Total 0.6 mg/dL 0.0-1.2 (test code = 1975-2) Alkaline 130 IU/L 48-121 H Phosphatase (test Pl ease note code = 6768-6) reference int erval change
<b r/>Perf ormed by:
[facility] ([place])

AST (SGOT) (test 15 IU/L 0-40 code = 1920-8) ALT (SGPT) (test 18 IU/L 0-44 code = 1742-6) [facility] Description: Comp. Metabolic Panel (14)2020-08-16 01:19:00 Test Item Value Reference Range Interpretation Comments Glucose (test code 424 mg/dL 65-99 H = 2345-7) BUN (test code = 27 mg/dL 6-24 H 3094-0) Creatinine (test 1.88 mg/dL 0.76-1.27 H code = 2160-0) eGFR If NonAfricn 42 >59 L Am (test code = mL/min/1.73 94935-5) eGFR If Africn Am 48 >59 L [facility] currently (test code = mL/min/1.73 [place] [address]-3) compliance with the current recommendations of the National Kidney Foundation. [place] will update re porting as new guidelin es are published from the NKF-ASN Task force.
<br/ >Perfor med by:
[facility] [place] [facility] ([place])

BUN/Creatinine 14 9-20 Ratio (test code = 3097-3) Sodium (test code = 138 mmol/L 766-558 8096-2) Potassium (test 4.2 mmol/L 3.5-5.2 code = 2823-3) Chloride (test code 98 mmol/L 96-106 = 2075-0) Carbon Dioxide, 28 mmol/L 20-29 Total (test code = 2027-) Calcium (test code 8.4 mg/dL 8.7-10.2 L = 63921-7) Protein, Total 6.1 g/dL 6.0-8.5 (test code = 2885-2) Albumin (test code 3.0 g/dL 4.0-5.0 L = 1751-7) Globulin, Total 3.1 g/dL 1.5-4.5 (test code = 46328-6) A/G Ratio (test 1.0 1.2-2.2 L code = 1759-0) Bilirubin, Total 0.6 mg/dL 0.0-1.2 (test code = 1975-2) Alkaline 130 IU/L 48-121 H Phosphatase (test Pl ease note code = 6768-6) reference int erval change
<b r/>Perf ormed by:
[facility] ([place])

AST (SGOT) (test 15 IU/L 0-40 code = 1920-8) ALT (SGPT) (test 18 IU/L 0-44 code = 1742-6) [facility] Description: Comp. Metabolic Panel (14)2020-08-16 01:19:00 Test Item Value Reference Range Interpretation Comments Glucose (test code 424 mg/dL 65-99 H = 2345-7) BUN (test code = 27 mg/dL 6-24 H 3094-0) Creatinine (test 1.88 mg/dL 0.76-1.27 H code = 2160-0) eGFR If NonAfricn 42 >59 L Am (test code = mL/min/1.73 05009-0) eGFR If Africn Am 48 >59 L [facility] currently (test code = mL/min/1.73 [place] 767[address]-0) compliance with the current recommendations of the National Kidney Foundation. [place] will update re porting as new guidelin es are published from the NKF-ASN Task force.
<br/ >Perfor med by:
[facility] [place] [facility] ([place])

BUN/Creatinine 14 9-20 Ratio (test code = 3097-3) Sodium (test code = 138 mmol/L 831-494 6801-2) Potassium (test 4.2 mmol/L 3.5-5.2 code = 2823-3) Chloride (test code 98 mmol/L 96-106 = 5-0) Carbon Dioxide, 28 mmol/L 20-29 Total (test code = 2027-) Calcium (test code 8.4 mg/dL 8.7-10.2 L = 90876-5) Protein, Total 6.1 g/dL 6.0-8.5 (test code = 2885-2) Albumin (test code 3.0 g/dL 4.0-5.0 L = 1751-7) Globulin, Total 3.1 g/dL 1.5-4.5 (test code = 73980-1) A/G Ratio (test 1.0 1.2-2.2 L code = 1759-0) Bilirubin, Total 0.6 mg/dL 0.0-1.2 (test code = 1975-2) Alkaline 130 IU/L 48-121 H Phosphatase (test Pl ease note code = 6768-6) reference int erval change
<b r/>Perf ormed by:
[facility] ([place])

AST (SGOT) (test 15 IU/L 0-40 code = 1920-8) ALT (SGPT) (test 18 IU/L 0-44 code = 1742-6) [facility] Description: Hemoglobin A1c/Hemoglobin.total in Blood 2020-08-16 00:35:00 Test Item Value Reference Range Interpretation Comments Hemoglobin A1c (test code 11.6 % 4.8-5.6 H = 4548-4) . Prediabetes: 5. 7 - 6.4 Diabete s: >6.4 Glycemi c control for niall lts with diabetes: <7.0

P erforme d by:
[facility] ([place]

[facility] Description: Hemoglobin A1c/Hemoglobin.total in Blood 2020-08-16 00:35:00 Test Item Value Reference Range Interpretation Comments Hemoglobin A1c (test code 11.6 % 4.8-5.6 H = 4548-4) . Prediabetes: 5. 7 - 6.4 Diabete s: >6.4 Glycemi c control for niall lts with diabetes: <7.0

P erforme d by:
[facility] ([place])

[facility] Description: Hemoglobin A1c/Hemoglobin.total in Blood 2020-08-16 00:35:00 Test Item Value Reference Range Interpretation Comments Hemoglobin A1c (test code 11.6 % 4.8-5.6 H = 4548-4) . Prediabetes: 5. 7 - 6.4 Diabete s: >6.4 Glycemi c control for niall lts with diabetes: <7.0

P erforme d by:
[facility] ([place])

[facility] Description: Hemoglobin A1c/Hemoglobin.total in Blood 2020-08-16 00:35:00 Test Item Value Reference Range Interpretation Comments Hemoglobin A1c (test code 11.6 % 4.8-5.6 H = 4548-4) . Prediabetes: 5. 7 - 6.4 Diabete s: >6.4 Glycemi c control for niall lts with diabetes: <7.0

P erforme d by:
[facility] ([place])

[facility] Description: Hemoglobin A1c/Hemoglobin.total in Blood 2020-08-16 00:35:00 Test Item Value Reference Range Interpretation Comments Hemoglobin A1c (test code 11.6 % 4.8-5.6 H = 4548-4) . Prediabetes: 5. 7 - 6.4 Diabete s: >6.4 Glycemi c control for niall lts with diabetes: <7.0

P erforme d by:
[facility] ()

[facility] Description: Hemoglobin A1c/Hemoglobin.total in Blood 2020-08-16 00:35:00 Test Item Value Reference Range Interpretation Comments Hemoglobin A1c (test code 11.6 % 4.8-5.6 H = 4548-4) . Prediabetes: 5. 7 - 6.4 Diabete s: >6.4 Glycemi c control for niall lts with diabetes: <7.0

P erforme d by:
[facility] ([place])

[facility] Description: Hemoglobin A1c/Hemoglobin.total in Blood 2020-08-16 00:35:00 Test Item Value Reference Range Interpretation Comments Hemoglobin A1c (test code 11.6 % 4.8-5.6 H = 4548-4) . Prediabetes: 5. 7 - 6.4 Diabete s: >6.4 Glycemi c control for niall lts with diabetes: <7.0

P erforme d by:
[facility]

[facility] Description: Hemoglobin A1c/Hemoglobin.total in Blood 2020-08-16 00:35:00 Test Item Value Reference Range Interpretation Comments Hemoglobin A1c (test code 11.6 % 4.8-5.6 H = 4548-4) . Prediabetes: 5. 7 - 6.4 Diabete s: >6.4 Glycemi c control for niall lts with diabetes: <7.0

P erforme d by:
[facility] ()

[facility] Description: Hemoglobin A1c/Hemoglobin.total in Blood 2020-08-16 00:35:00 Test Item Value Reference Range Interpretation Comments Hemoglobin A1c (test code 11.6 % 4.8-5.6 H = 4548-4) . Prediabetes: 5. 7 - 6.4 Diabete s: >6.4 Glycemi c control for niall lts with diabetes: <7.0

P erforme d by:
[facility] ([place])

[facility] Description: Hemoglobin A1c/Hemoglobin.total in Blood 2020-08-16 00:35:00 Test Item Value Reference Range Interpretation Comments Hemoglobin A1c (test code 11.6 % 4.8-5.6 H = 4548-4) . Prediabetes: 5. 7 - 6.4 Diabete s: >6.4 Glycemi c control for niall lts with diabetes: <7.0

P erforme d by:
[facility] ()

[facility] and screen, [id number] 19:24:00 Test Item Value Reference Range Interpretation Comments ABO/RH AUTOMATED (BEAKER) (test A POSITIVE ECHO code = 2260) Ab Scrn (test code = 890-4) [facility] [id number] 19:24:00 Test Item Value Reference Range Interpretation Comments ABO/RH AUTOMATED (BEAKER) (test A POSITIVE ECHO code = 2260) Ab Scrn (test code = 890-4) [facility] [id number] 19:24:00 Test Item Value Reference Range Interpretation Comments ABO/RH AUTOMATED (BEAKER) (test A POSITIVE ECHO code = 2260) Ab Scrn (test code = 890-4) [facility] [id number] 19:24:00 Test Item Value Reference Range Interpretation Comments ABO/RH AUTOMATED (BEAKER) (test A POSITIVE ECHO code = 2260) Ab Scrn (test code = 890-4) [facility], [id number] 19:24:00 Test Item Value Reference Range Interpretation Comments ABO/RH AUTOMATED (BEAKER) (test A POSITIVE ECHO code = 2260) Ab Scrn (test code = 890-4) [facility], [id number] 19:24:00 Test Item Value Reference Range Interpretation Comments ABO/RH AUTOMATED (BEAKER) (test A POSITIVE ECHO code = 2260) Ab Scrn (test code = 890-4) [facility], [id number] 19:24:00 Test Item Value Reference Range Interpretation Comments ABO/RH AUTOMATED (BEAKER) (test A POSITIVE ECHO code = 2260) Ab Scrn (test code = 890-4) NEGATIVE [facility]CHO [facility] [id number] 19:12:00 Test Item Value Reference Range Interpretation Comments Protein, Total (test 6.9 See_Comment [Autom ated code = 2885-2) message] The system which generated this result transmit josé luis reference range : 6.0 - 8.5 gm/dL . The reference range was not u sed to interpret th is result as normal/abnormal . Albumin (test code = 3.3 g/dL 3.5-5 L 70652-2) Alkaline Phosphatase 97 U/L 30-115 (test code = 6768-6) Total Bilirubin (test 0.9 mg/dL 0.1-1.2 code = 1975-2) Sodium (test code = 137 meq/L 228-129 3562-2) Potassium (test code 4.5 meq/L 3.6-5.5 = 2823-3) Chloride (test code = 100 meq/L 98-106 5-0) CO2 (test code = 26 meq/L 20-29 8-9) BUN (test code = 51 mg/dL 10-26 H 3094-0) Creatinine (test code 1.87 mg/dL 0.5-1.2 H = 2160-0) Glucose (test code = 267 mg/dL 70-110 H 2345-7) Calcium (test code = 9.1 mg/dL 8.5-10.5 69468-1) AST (test code = 18 U/L 5-40 1920-8) ALT (test code = 23 U/L 5-50 1742-6) EGFR (test code = 39 mL/min/1.73 [place] [address]-4) NOT ACCURATE CREATININE CLEARANCE IN PREDICTING GLOMERULAR FILTRATION RATE . ESTIMATED GFR I S NOT APPLICABLE FOR DIALYSIS PATIEN TS. ISSA (test code = ISSA) [employer] ID - [id number] r ID - [id number] r ID - [id number] r ID - [id number] r ID - [id number] r ID - [id number] r ID - [id number] r ID - [id number] r ID - [id number] r ID - [id number] r ID - [id number] r ID - [id number] r ID - [id number] r ID - [id number] r ID - [id number] r ID - [id number] r ID - [id number] r ID - [id number] r ID - [id number] Lab Interpretation Abnormal (test code = 48125-2) [facility] [id number] 19:12:00 Test Item Value Reference Range Interpretation Comments Protein, Total (test 6.9 See_Comment [Autom ated code = 2885-2) message] The system which generated this result transmit josé luis reference range : 6.0 - 8.5 gm/dL . The reference range was not u sed to interpret th is result as normal/abnormal . Albumin (test code = 3.3 g/dL 3.5-5 L 97452-8) Alkaline Phosphatase 97 U/L 30-115 (test code = 6768-6) Total Bilirubin (test 0.9 mg/dL 0.1-1.2 code = 1974-2) Sodium (test code = 137 meq/L 764-010 1838-2) Potassium (test code 4.5 meq/L 3.6-5.5 = 2823-3) Chloride (test code = 100 meq/L 98-106 5-0) CO2 (test code = 26 meq/L 20-29 2027-9) BUN (test code = 51 mg/dL 10-26 H 3094-0) Creatinine (test code 1.87 mg/dL 0.5-1.2 H = 2160-0) Glucose (test code = 267 mg/dL 70-110 H 2345-7) Calcium (test code = 9.1 mg/dL 8.5-10.5 48882-3) AST (test code = 18 U/L 5-40 1920-8) ALT (test code = 23 U/L 5-50 1742-6) EGFR (test code = 39 mL/min/1.73 [place] [address]-8) NOT ACCURATE CREATININE CLEARANCE IN PREDICTING GLOMERULAR FILTRATION RATE . ESTIMATED GFR I S NOT APPLICABLE FOR DIALYSIS PATIEN TS. ISSA (test code = ISSA) [employer] ID - [id number] r ID - [id number] r ID - [id number] r ID - [id number] r ID - [id number] r ID - [id number] r ID - [id number] r ID - [id number] r ID - [id number] r ID - [id number] r ID - [id number] r ID - [id number] r ID - [id number] r ID - [id number] r ID - [id number] r ID - [id number] r ID - [id number] r ID - [id number] r ID - [id number] Lab Interpretation Abnormal (test code = 98741-7) [facility] [id number] 19:12:00 Test Item Value Reference Range Interpretation Comments Protein, Total (test 6.9 See_Comment [Autom ated code = 2885-2) message] The system which generated this result transmit josé luis reference range : 6.0 - 8.5 gm/dL . The reference range was not u sed to interpret th is result as normal/abnormal . Albumin (test code = 3.3 g/dL 3.5-5 L 67620-2) Alkaline Phosphatase 97 U/L 30-115 (test code = 6768-6) Total Bilirubin (test 0.9 mg/dL 0.1-1.2 code = 1975-2) Sodium (test code = 137 meq/L 675-090 1301-2) Potassium (test code 4.5 meq/L 3.6-5.5 = 2823-3) Chloride (test code = 100 meq/L 98-106 2075-0) CO2 (test code = 26 meq/L 20-29 2028-9) BUN (test code = 51 mg/dL 10-26 H 3094-0) Creatinine (test code 1.87 mg/dL 0.5-1.2 H = 2160-0) Glucose (test code = 267 mg/dL 70-110 H 2345-7) Calcium (test code = 9.1 mg/dL 8.5-10.5 18265-6) AST (test code = 18 U/L 5-40 1920-8) ALT (test code = 23 U/L 5-50 1742-6) EGFR (test code = 39 mL/min/1.73 [place] [address]-8) NOT ACCURATE CREATININE CLEARANCE IN PREDICTING GLOMERULAR FILTRATION RATE . ESTIMATED GFR I S NOT APPLICABLE FOR DIALYSIS PATIEN TS. ISSA (test code = ISSA) [employer] ID - [id number] r ID - [id number] r ID - [id number] r ID - [id number] r ID - [id number] r ID - [id number] r ID - [id number] r ID - [id number] r ID - [id number] r ID - [id number] r ID - [id number] r ID - [id number] r ID - [id number] r ID - [id number] r ID - [id number] r ID - [id number] r ID - [id number] r ID - [id number] r ID - [id number] Lab Interpretation Abnormal (test code = 54111-0) [facility] [id number] 19:12:00 Test Item Value Reference Range Interpretation Comments Protein, Total (test 6.9 See_Comment [Autom ated code = 2885-2) message] The system which generated this result transmit josé luis reference range : 6.0 - 8.5 gm/dL . The reference range was not u sed to interpret th is result as normal/abnormal . Albumin (test code = 3.3 g/dL 3.5-5 L 62756-1) Alkaline Phosphatase 97 U/L 30-115 (test code = 6768-6) Total Bilirubin (test 0.9 mg/dL 0.1-1.2 code = 1974-2) Sodium (test code = 137 meq/L 190-522 0636-2) Potassium (test code 4.5 meq/L 3.6-5.5 = 2823-3) Chloride (test code = 100 meq/L 98-106 2075-0) CO2 (test code = 26 meq/L 20-29 8-9) BUN (test code = 51 mg/dL 10-26 H 3094-0) Creatinine (test code 1.87 mg/dL 0.5-1.2 H = 2160-0) Glucose (test code = 267 mg/dL 70-110 H 2345-7) Calcium (test code = 9.1 mg/dL 8.5-10.5 50189-4) AST (test code = 18 U/L 5-40 1920-8) ALT (test code = 23 U/L 5-50 1742-6) EGFR (test code = 39 mL/min/1.73 [place] [address]-0) NOT ACCURATE CREATININE CLEARANCE IN PREDICTING GLOMERULAR FILTRATION RATE . ESTIMATED GFR I S NOT APPLICABLE FOR DIALYSIS PATIEN TS. ISSA (test code = ISSA) [employer] ID - [id number] r ID - [id number] r ID - [id number] r ID - [id number] r ID - [id number] r ID - [id number] r ID - [id number] r ID - [id number] r ID - [id number] r ID - [id number] r ID - [id number] r ID - [id number] r ID - [id number] r ID - [id number] r ID - [id number] r ID - [id number] r ID - [id number] r ID - [id number] r ID - [id number] Lab Interpretation Abnormal (test code = 08579-6) [facility] [id number] 19:12:00 Test Item Value Reference Range Interpretation Comments Protein, Total (test 6.9 See_Comment [Autom ated code = 2885-2) message] The system which generated this result transmit josé luis reference range : 6.0 - 8.5 gm/dL . The reference range was not u sed to interpret th is result as normal/abnormal . Albumin (test code = 3.3 g/dL 3.5-5.0 L 76360-2) Alkaline Phosphatase 97 U/L 30-115 (test code = 6768-6) Total Bilirubin (test 0.9 mg/dL 0.1-1.2 code = 1974-2) Sodium (test code = 137 meq/L 435-275 1146-2) Potassium (test code 4.5 meq/L 3.6-5.5 = 2823-3) Chloride (test code = 100 meq/L 98-106 2074-0) CO2 (test code = 26 meq/L 20-29 2027-9) BUN (test code = 51 mg/dL 10-26 H 3094-0) Creatinine (test code 1.87 mg/dL 0.50-1.20 H = 2160-0) Glucose (test code = 267 mg/dL 70-110 H 5-7) Calcium (test code = 9.1 mg/dL 8.5-10.5 76581-2) AST (test code = 18 U/L 5-40 1919-8) ALT (test code = 23 U/L 5-50 1742-6) EGFR (test code = 39 mL/min/1.73 [place] [address]-4) NOT ACCURATE CREATININE CLEARANCE IN PREDICTING GLOMERULAR FILTRATION RATE . ESTIMATED GFR I S NOT APPLICABLE FOR DIALYSIS PATIEN ISSA (test code = ISSA) [employer] ID - [id number] r ID - [id number] r ID - [id number] r ID - [id number] r ID - [id number] r ID - [id number] r ID - [id number] r ID - [id number] r ID - [id number] r ID - [id number] r ID - [id number] r ID - [id number] r ID - [id number] r ID - [id number] r ID - [id number] r ID - [id number] r ID - [id number] r ID - [id number] r ID - [id number] Lab Interpretation Abnormal (test code = 78313-0) [facility] [id number] 19:12:00 Test Item Value Reference Range Interpretation Comments Protein, Total (test 6.9 See_Comment [Autom ated code = 2885-2) message] The system which generated this result transmit josé luis reference range : 6.0 - 8.5 gm/dL . The reference range was not u sed to interpret th is result as normal/abnormal . Albumin (test code = 3.3 g/dL 3.5-5.0 L 29862-2) Alkaline Phosphatase 97 U/L 30-115 (test code = 6768-6) Total Bilirubin (test 0.9 mg/dL 0.1-1.2 code = 1975-2) Sodium (test code = 137 meq/L 642-072 6170-2) Potassium (test code 4.5 meq/L 3.6-5.5 = 2823-3) Chloride (test code = 100 meq/L 98-106 2074-0) CO2 (test code = 26 meq/L 20-29 2027-9) BUN (test code = 51 mg/dL 10-26 H 3094-0) Creatinine (test code 1.87 mg/dL 0.50-1.20 H = 2160-0) Glucose (test code = 267 mg/dL 70-110 H 2345-7) Calcium (test code = 9.1 mg/dL 8.5-10.5 08070-7) AST (test code = 18 U/L 5-40 1920-8) ALT (test code = 23 U/L 5-50 1742-6) EGFR (test code = 39 mL/min/1.73 [place] [address]-9) NOT ACCURATE CREATININE CLEARANCE IN PREDICTING GLOMERULAR FILTRATION RATE . ESTIMATED GFR I S NOT APPLICABLE FOR DIALYSIS PATIEN TS. ISSA (test code = ISSA) [employer] ID - [id number] r ID - [id number] r ID - [id number] r ID - [id number] r ID - [id number] r ID - [id number] r ID - [id number] r ID - [id number] r ID - [id number] r ID - [id number] r ID - [id number] r ID - [id number] r ID - [id number] r ID - [id number] r ID - [id number] r ID - [id number] r ID - [id number] r ID - [id number] r ID - [id number] Lab Interpretation Abnormal (test code = 55023-0) [facility] [id number] 19:12:00 Test Item Value Reference Range Interpretation Comments Protein, Total (test 6.9 See_Comment [Autom ated code = 2885-2) message] The system which generated this result transmit josé luis reference range : 6.0 - 8.5 gm/dL . The reference range was not u sed to interpret th is result as normal/abnormal . Albumin (test code = 3.3 g/dL 3.5-5.0 L 40735-6) Alkaline Phosphatase 97 U/L 30-115 (test code = 6768-6) Total Bilirubin (test 0.9 mg/dL 0.1-1.2 code = 1974-2) Sodium (test code = 137 meq/L 196-066 1144-2) Potassium (test code 4.5 meq/L 3.6-5.5 = 2823-3) Chloride (test code = 100 meq/L 98-106 2074-0) CO2 (test code = 26 meq/L 20-29 2027-9) BUN (test code = 51 mg/dL 10-26 H 3094-0) Creatinine (test code 1.87 mg/dL 0.50-1.20 H = 2160-0) Glucose (test code = 267 mg/dL 70-110 H 2345-7) Calcium (test code = 9.1 mg/dL 8.5-10.5 64573-0) AST (test code = 18 U/L 5-40 1920-8) ALT (test code = 23 U/L -50 1742-6) EGFR (test code = 39 mL/min/1.73 [place] [address]-0) NOT ACCURATE CREATININE CLEARANCE IN PREDICTING GLOMERULAR FILTRATION RATE . ESTIMATED GFR I S NOT APPLICABLE FOR DIALYSIS PATIEN TS. ISSA (test code = ISSA) [employer] ID - [id number] r ID - [id number] r ID - [id number] r ID - [id number] r ID - [id number] r ID - [id number] r ID - [id number] r ID - [id number] r ID - [id number] r ID - [id number] r ID - [id number] r ID - [id number] r ID - [id number] r ID - [id number] r ID - [id number] r ID - [id number] r ID - [id number] r ID - [id number] r ID - [id number] Lab Interpretation Abnormal (test code = 14945-3) [facility] [id number] 19:12:00 Test Item Value Reference Range Interpretation Comments TOTAL PROTEIN 6.9 gm/dL 6.0-8.5 (BEAKER) (test code = 770) ALBUMIN (BEAKER) 3.3 g/dL 3.5-5.0 L (test code = 1145) ALKALINE PHOSPHATASE 97 U/L 30-115 (BEAKER) (test code = 346) BILIRUBIN TOTAL 0.9 mg/dL 0.1-1.2 (BEAKER) (test code = 377) SODIUM (BEAKER) (test 137 meq/L 135-148 code = 381) POTASSIUM (BEAKER) 4.5 meq/L 3.6-5.5 (test code = 379) CHLORIDE (BEAKER) 100 meq/L 98-106 (test code = 382) CO2 (BEAKER) (test 26 meq/L 20-29 code = 355) BLOOD UREA NITROGEN 51 mg/dL 10-26 H (BEAKER) (test code = 354) CREATININE (BEAKER) 1.87 mg/dL 0.50-1.20 H (test code = 358) GLUCOSE RANDOM 267 mg/dL 70-110 H (BEAKER) (test code = 652) CALCIUM (BEAKER) 9.1 mg/dL 8.5-10.5 (test code = 697) AST (SGOT) (BEAKER) 18 U/L 5-40 (test code = 353) ALT (SGPT) (BEAKER) 23 U/L 5-50 (test code = 347) EGFR (BEAKER) (test 39 mL/min/1.73 ESTIMA JOSÉ LUIS GFR IS code = 1092) sq m NOT ACCURATE CREATININE CLEARANCE IN PREDICTING GLOMERULAR FILTRATION RATE . ESTIMATED GFR I S NOT APPLICABLE FOR DIALYSIS PATIEN TS. [employer] ID - [id number] ID - [id number] ID - [id number] ID - [id number] ID - [id number] ID - [id number] ID - [id number] ID - [id number] ID - [id number] ID - [id number] ID - [id number] ID - [id number] ID - [id number] ID - [id number] ID - [id number] ID - [id number] ID - [id number] ID - [id number] ID - [id number] acid, [id number] 19:05:00 Test Item Value Reference Range Interpretation Comments Lactate, Venous (test code 1.18 mmol/L 0.5-2 = 2872) ISSA (test code = ISSA) [employer] ID - [id number] ID - [id number] ID - [id number] ID - [id number] Lab Interpretation (test Normal code = 48444-2) [facility] [id number] 19:05:00 Test Item Value Reference Range Interpretation Comments Lactate, Venous (test code 1.18 mmol/L 0.5-2 = 2872) ISSA (test code = ISSA) [employer] ID - [id number] ID - [id number] ID - [id number] ID - [id number] Lab Interpretation (test Normal code = 22099-1) [facility] [id number] 19:05:00 Test Item Value Reference Range Interpretation Comments Lactate, Venous (test code 1.18 mmol/L 0.5-2 = 2872) ISSA (test code = ISSA) [employer] ID - [id number] ID - [id number] ID - [id number] ID - [id number] Lab Interpretation (test Normal code = 89539-2) [facility] [id number] 19:05:00 Test Item Value Reference Range Interpretation Comments Lactate, Venous (test code 1.18 mmol/L 0.5-2 = 2872) ISSA (test code = ISSA) [employer] ID - [id number] ID - [id number] ID - [id number] ID - [id number] Lab Interpretation (test Normal code = 87497-4) [facility] [id number] 19:05:00 Test Item Value Reference Range Interpretation Comments Lactate, Venous (test code 1.18 mmol/L 0.50-2.00 = 2872) ISSA (test code = ISSA) [employer] ID - [id number] ID - [id number] ID - [id number] ID - [id number] Lab Interpretation (test Normal code = 97602-3) [facility] [id number] 19:05:00 Test Item Value Reference Range Interpretation Comments Lactate, Venous (test code 1.18 mmol/L 0.50-2.00 = 2872) ISSA (test code = ISSA) [employer] ID - [id number] ID - [id number] ID - [id number] ID - [id number] Lab Interpretation (test Normal code = 63130-4) [facility]ilion[facility], [id number] 19:05:00 Test Item Value Reference Range Interpretation Comments Lactate, Venous (test code 1.18 mmol/L 0.50-2.00 = 2872) ISSA (test code = ISSA) [employer] ID - [id number] ID - [id number] ID - [id number] ID - [id number] Lab Interpretation (test Normal code = 05571-8) [facility]ilion[facility]CT[facility] ACID, [id number] 19:05:00 Test Item Value Reference Range Interpretation Comments LACTATE BLOOD VENOUS (2) (BEAKER) 1.18 mmol/L 0.50-<2.00 (test code = 2872) [employer] ID - [id number] ID - [id number] ID - [id number] ID - [id number]/[id number] 19:02:00 Test Item Value Reference Interpretation Comments Range Protime (test code = 13.0 See_Comment H Final 5902-2) Information (Auto Output) [Automated message] The system which generated this result transmitted reference range : 9.3 - 12.0 seconds. The reference range was not used to interpret this result as normal/abnormal . INR (test code = 1.21 See_Comment Final 6301-6) Information (Auto Output) [Automated message] The system which generated this result transmitted reference range : <=5.90. The reference range was not used to interpret this result as normal/abnormal . ISSA (test code = RECOMMENDED ISSA) COUMADIN/WARFARIN INR THERAPY RANGESSTANDARD DOSE: 2.0 - 3.0 Includes: PROPHYLAXIS for venous thrombosis, systemic embolization; TREATMENT for venous thrombosis and/or pulmonary embolus.HIGH RISK: Target INR is 2.5-3.5 for patients with mechanical heart valves. Lab Interpretation Abnormal (test code = 38293-5) [facility]/[id number] 19:02:00 Test Item Value Reference Interpretation Comments Range Protime (test code = 13.0 See_Comment H Final 5902-2) Information (Auto Output) [Automated message] The system which generated this result transmitted reference range : 9.3 - 12.0 seconds. The reference range was not used to interpret this result as normal/abnormal . INR (test code = 1.21 See_Comment Final 6301-6) Information (Auto Output) [Automated message] The system which generated this result transmitted reference range : <=5.90. The reference range was not used to interpret this result as normal/abnormal . ISSA (test code = RECOMMENDED ISSA) COUMADIN/WARFARIN INR THERAPY RANGESSTANDARD DOSE: 2.0 - 3.0 Includes: PROPHYLAXIS for venous thrombosis, systemic embolization; TREATMENT for venous thrombosis and/or pulmonary embolus.HIGH RISK: Target INR is 2.5-3.5 for patients with mechanical heart valves. Lab Interpretation Abnormal (test code = 88013-6) [facility]/[id number] 19:02:00 Test Item Value Reference Interpretation Comments Range Protime (test code = 13.0 See_Comment H Final 5902-2) Information (Auto Output) [Automated message] The system which generated this result transmitted reference range : 9.3 - 12.0 seconds. The reference range was not used to interpret this result as normal/abnormal . INR (test code = 1.21 See_Comment Final 6301-6) Information (Auto Output) [Automated message] The system which generated this result transmitted reference range : <=5.90. The reference range was not used to interpret this result as normal/abnormal . ISSA (test code = RECOMMENDED ISSA) COUMADIN/WARFARIN INR THERAPY RANGESSTANDARD DOSE: 2.0 - 3.0 Includes: PROPHYLAXIS for venous thrombosis, systemic embolization; TREATMENT for venous thrombosis and/or pulmonary embolus.HIGH RISK: Target INR is 2.5-3.5 for patients with mechanical heart valves. Lab Interpretation Abnormal (test code = 08535-0) [facility]/[id number] 19:02:00 Test Item Value Reference Interpretation Comments Range Protime (test code = 13.0 See_Comment H Final 5902-2) Information (Auto Output) [Automated message] The system which generated this result transmitted reference range : 9.3 - 12.0 seconds. The reference range was not used to interpret this result as normal/abnormal . INR (test code = 1.21 See_Comment Final 6301-6) Information (Auto Output) [Automated message] The system which generated this result transmitted reference range : <=5.90. The reference range was not used to interpret this result as normal/abnormal . ISSA (test code = RECOMMENDED ISSA) COUMADIN/WARFARIN INR THERAPY RANGESSTANDARD DOSE: 2.0 - 3.0 Includes: PROPHYLAXIS for venous thrombosis, systemic embolization; TREATMENT for venous thrombosis and/or pulmonary embolus.HIGH RISK: Target INR is 2.5-3.5 for patients with mechanical heart valves. Lab Interpretation Abnormal (test code = 71651-9) [facility]/[id number] 19:02:00 Test Item Value Reference Interpretation Comments Range Protime (test code = 13.0 See_Comment H Final 5902-2) Information (Auto Output) [Automated message] The system which generated this result transmitted reference range : 9.3 - 12.0 seconds. The reference range was not used to interpret this result as normal/abnormal . INR (test code = 1.21 See_Comment Final 6301-6) Information (Auto Output) [Automated message] The system which generated this result transmitted reference range : <=5.90. The reference range was not used to interpret this result as normal/abnormal . ISSA (test code = RECOMMENDED ISSA) COUMADIN/WARFARIN INR THERAPY RANGESSTANDARD DOSE: 2.0 - 3.0 Includes: PROPHYLAXIS for venous thrombosis, systemic embolization; TREATMENT for venous thrombosis and/or pulmonary embolus.HIGH RISK: Target INR is 2.5-3.5 for patients with mechanical heart valves. Lab Interpretation Abnormal (test code = 26892-6) [facility]/[id number] 19:02:00 Test Item Value Reference Interpretation Comments Range Protime (test code = 13.0 See_Comment H Final 5902-2) Information (Auto Output) [Automated message] The system which generated this result transmitted reference range : 9.3 - 12.0 seconds. The reference range was not used to interpret this result as normal/abnormal . INR (test code = 1.21 See_Comment Final 6301-6) Information (Auto Output) [Automated message] The system which generated this result transmitted reference range : <=5.90. The reference range was not used to interpret this result as normal/abnormal . ISSA (test code = RECOMMENDED ISSA) COUMADIN/WARFARIN INR THERAPY RANGESSTANDARD DOSE: 2.0 - 3.0 Includes: PROPHYLAXIS for venous thrombosis, systemic embolization; TREATMENT for venous thrombosis and/or pulmonary embolus.HIGH RISK: Target INR is 2.5-3.5 for patients with mechanical heart valves. Lab Interpretation Abnormal (test code = 13947-7) [facility]/[id number] 19:02:00 Test Item Value Reference Interpretation Comments Range Protime (test code = 13.0 See_Comment H Final 5902-2) Information (Auto Output) [Automated message] The system which generated this result transmitted reference range : 9.3 - 12.0 seconds. The reference range was not used to interpret this result as normal/abnormal . INR (test code = 1.21 See_Comment Final 6301-6) Information (Auto Output) [Automated message] The system which generated this result transmitted reference range : <=5.90. The reference range was not used to interpret this result as normal/abnormal . ISSA (test code = RECOMMENDED ISSA) COUMADIN/WARFARIN INR THERAPY RANGESSTANDARD DOSE: 2.0 - 3.0 Includes: PROPHYLAXIS for venous thrombosis, systemic embolization; TREATMENT for venous thrombosis and/or pulmonary embolus.HIGH RISK: Target INR is 2.5-3.5 for patients with mechanical heart valves. Lab Interpretation Abnormal (test code = 45313-2) [facility]ilionPROTHROMBIN TIME/[id number] 19:02:00 Test Item Value Reference Range Interpretation Comments PROTIME (BEAKER) 13.0 seconds 9.3-12.0 H Final Infor mation (test code = 759) (Auto Outp ut) INR (BEAKER) (test 1.21 <=5.90 Final Inf ormation code = 370) (Auto Output) RECOMMENDED COUMADIN/WARFARIN INR THERAPY RANGESSTANDARD DOSE: 2.0 - 3.0 Includes: PROPHYLAXIS forvenous thrombosis, systemic embolization; TREATMENT for venous thrombosis and/or pulmonary embolus.HIGH RISK: Target INR is 2.5-3.5 for patients with mechanical heart valves.CBC W/PLT COUNT & AUTO DIFFERENTIAL 2020-04-30 18:51:00 Test Item Value Reference Range Interpretation Comments WHITE BLOOD CELL COUNT (BEAKER) 9.3 K/ L 4.0-10.0 (test code = 775) RED BLOOD CELL COUNT (BEAKER) 3.71 M/ L 4.20-5.80 L (test code = 761) HEMOGLOBIN (BEAKER) (test code = 11.3 GM/DL 13.0-16.8 L 410) HEMATOCRIT (BEAKER) (test code = 34.9 % 36.0-50.0 L 411) MEAN CORPUSCULAR VOLUME (BEAKER) 94.1 fL 82.0-99.0 (test code = 753) MEAN CORPUSCULAR HEMOGLOBIN 30.5 pg 27.0-33.0 (BEAKER) (test code = 751) MEAN CORPUSCULAR HEMOGLOBIN CONC 32.4 GM/DL 32.0-36.0 (BEAKER) (test code = 752) RED CELL DISTRIBUTION WIDTH 13.2 % 12.0-15.0 (BEAKER) (test code = 412) PLATELET COUNT (BEAKER) (test 214 K/CU MM 150-430 code = 756) MEAN PLATELET VOLUME (BEAKER) 11.2 fL 6.0-11.5 (test code = 754) NUCLEATED RED BLOOD CELLS 0 /100 WBC 0-0 (BEAKER) (test code = 413) NEUTROPHILS RELATIVE PERCENT 74 % (BEAKER) (test code = 429) LYMPHOCYTES RELATIVE PERCENT 13 % (BEAKER) (test code = 430) MONOCYTES RELATIVE PERCENT 8 % (BEAKER) (test code = 431) EOSINOPHILS RELATIVE PERCENT 4 % (BEAKER) (test code = 432) BASOPHILS RELATIVE PERCENT 1 % (BEAKER) (test code = 437) NEUTROPHILS ABSOLUTE COUNT 6.83 K/ L 1.80-8.00 (BEAKER) (test code = 670) LYMPHOCYTES ABSOLUTE COUNT 1.17 K/ L 1.48-4.50 L (BEAKER) (test code = 414) MONOCYTES ABSOLUTE COUNT (BEAKER) 0.76 K/ L 0.00-1.30 (test code = 415) EOSINOPHILS ABSOLUTE COUNT 0.34 K/ L 0.00-0.50 (BEAKER) (test code = 416) BASOPHILS ABSOLUTE COUNT (BEAKER) 0.07 K/ L 0.00-0.20 (test code = 417) IMMATURE GRANULOCYTES-RELATIVE 1 % 0-0 H PERCENT (BEAKER) (test code = 2801) CARDIAC CATH REPORT - [id number] 13:14:50Ordered by an unspecified provider. [facility] - [id number] 13:14:50 Ordered by an unspecified provider.[facility] - [id number] 13:14:50Ordered by an unspecified provider.[facility] C[facility] REPORT - [id number] 13:14:50Ordered by an unspecified provider.[facility] PavilionKappa / lambda light chains, [id number] 10:53:00 Test Item Value Reference Interpretation Comments Range [place] Lt Chain,Free 129.5 mg/L 3.3-19.4 H (test code = 10089-4) Lambda Lt 99.3 mg/L 5.7-26.3 H Chain,Free (test code = 44772-0) [place]/Lambda,Free 1.3 0.26-1.65 Free shantell a/lambda (test code = ratio in serum of 20190627) normal individu als is 0.26-1.65. Excessproductio n of free kappa or l ambda chains can alte r this ratio. Monoclon alfree light chains ar e found in serum of pat ients with multiple myeloma,Waldens trom's macroglobulinem ia, mu-heavy chain disease, primary amyloidosis,lig ht chain deposition dise ase, monoclonal gamm opathy of undeterminedsig nificanc e, and lymphoprolifera tive disorders. [place] urement of free lightch ain concentration i n serum is useful for diagnosis, prog nosis, monitoringdisea se activity and fo llowing response to the rapy of these disorders . ISSA (test code = Performing Lab ISSA) EZ [facility] [address] [place] [address] Awais Cedeno MD, PhD, TOMY Lab Interpretation Abnormal (test code = 38975-8) [facility] lambda light chains, [id number] 10:53:00 Test Item Value Reference Interpretation Comments Range [place] Lt Chain,Free 129.5 mg/L 3.3-19.4 H (test code = 04199-0) Lambda Lt 99.3 mg/L 5.7-26.3 H Chain,Free (test code = 40486-5) [place]/Lambda,Free 1.3 0.26-1.65 Free shantell a/lambda (test code = ratio in serum of [id number]) normal individu als is 0.26-1.65. Excessproductio n of free kappa or l ambda chains can alte r this ratio. Monoclon alfree light chains ar e found in serum of pat ients with multiple myeloma,Waldens trom's macroglobulinem ia, mu-heavy chain disease, primary amyloidosis,lig ht chain deposition dise ase, monoclonal gamm opathy of undeterminedsig nificanc e, and lymphoprolifera tive disorders. Ana Paula urement of free lightch ain concentration i n serum is useful for diagnosis, prog nosis, monitoringdisea se activity and fo llowing response to the rapy of these disorders . ISSA (test code = Performing Lab ISSA) EZ [facility] [address] [place] [address] Awais Cedeno MD, PhD, TOMY Lab Interpretation Abnormal (test code = 61227-1) [facility] lambda light chains, [id number] 10:53:00 Test Item Value Reference Interpretation Comments Range [place] Lt Chain,Free 129.5 mg/L 3.3-19.4 H (test code = 48439-7) Lambda Lt 99.3 mg/L 5.7-26.3 H Chain,Free (test code = 76421-0) [place]/Lambda,Free 1.3 0.26-1.65 Free shantell a/lambda (test code = ratio in serum of 20190627) normal individu als is 0.26-1.65. Excessproductio n of free kappa or l ambda chains can alte r this ratio. Monoclon alfree light chains ar e found in serum of pat ients with multiple myeloma,Waldens trom's macroglobulinem ia, mu-heavy chain disease, primary amyloidosis,lig ht chain deposition dise ase, monoclonal gamm opathy of undeterminedsig nificanc e, and lymphoprolifera tive disorders. Ana Paula urement of free lightch ain concentration i n serum is useful for diagnosis, prog nosis, monitoringdisea se activity and fo llowing response to the rapy of these disorders . ISSA (test code = Performing Lab ISSA) [employer] [facility] [address] [place] [address] Awais Cedeno MD, PhD, TOMY Lab Interpretation Abnormal (test code = 39287-3) [facility] lambda light [facility], [id number] 10:53:00 Test Item Value Reference Interpretation Comments Range [place] Lt Chain,Free 129.5 mg/L 3.3-19.4 H (test code = 49531-2) Lambda Lt 99.3 mg/L 5.7-26.3 H Chain,Free (test code = 52109-7) [place]/Lambda,Free 1.3 0.26-1.65 Free shantell a/lambda (test code = ratio in serum of [id number]) normal individu als is 0.26-1.65. Excessproductio n of free kappa or l ambda chains can alte r this ratio. Monoclon alfree light chains ar e found in serum of pat ients with multiple myeloma,Waldens trom's macroglobulinem ia, mu-heavy chain disease, primary amyloidosis,lig ht chain deposition dise ase, monoclonal gamm opathy of undeterminedsig nificanc e, and lymphoprolifera tive disorders. Ana Paula urement of free lightch ain concentration i n serum is useful for diagnosis, prog nosis, monitoringdisea se activity and fo llowing response to the rapy of these disorders . ISSA (test code = Performing Lab ISSA) [employer] [address] [place] [address] Awais Cedeno MD, PhD, TOMY Lab Interpretation Abnormal (test code = 16579-4) [facility] lambda light chains, [id number] 10:53:00 Test Item Value Reference Interpretation Comments Range [place] Lt Chain,Free 129.5 mg/L 3.3-19.4 H (test code = 49902-4) Lambda Lt 99.3 mg/L 5.7-26.3 H Chain,Free (test code = 18097-6) [place]/Lambda,Free 1.3 0.26-1.65 Free shantell a/lambda (test code = ratio in serum of [id number]) normal individu als is 0.26-1.65. Excessproductio n of free kappa or l ambda chains can alte r this ratio. Monoclon alfree light chains ar e found in serum of pat ients with multiple myeloma,Waldens trom's macroglobulinem ia, mu-heavy chain disease, primary amyloidosis,lig ht chain deposition dise ase, monoclonal gamm opathy of undeterminedsig nificanc e, and lymphoprolifera tive disorders. Ana Paula urement of free lightch ain concentration i n serum is useful for diagnosis, prog nosis, monitoringdisea se activity and fo llowing response to the rapy of these disorders . ISSA (test code = Performing Lab ISSA) [facility] [employer] [facility] [address] [place] [address] Awais Cedeno MD, PhD, TOMY Lab Interpretation Abnormal (test code = 84485-6) [facility] lambda light chains, [id number] 10:53:00 Test Item Value Reference Interpretation Comments Range [place] Lt Chain,Free 129.5 mg/L 3.3-19.4 H (test code = 53319-5) Lambda Lt 99.3 mg/L 5.7-26.3 H Chain,Free (test code = 02409-7) [place]/Lambda,Free 1.3 0.26-1.65 Free shantell a/lambda (test code = ratio in serum of [id number]) normal individu als is 0.26-1.65. Excessproductio n of free kappa or l ambda chains can alte r this ratio. Monoclon alfree light chains ar e found in serum of pat ients with multiple myeloma,Waldens trom's macroglobulinem ia, mu-heavy chain disease, primary amyloidosis,lig ht chain deposition dise ase, monoclonal gamm opathy of undeterminedsig nificanc e, and lymphoprolifera tive disorders. Ana Paula urement of free lightch ain concentration i n serum is useful for diagnosis, prog nosis, monitoringdisea se activity and fo llowing response to the rapy of these disorders . ISSA (test code = Performing Lab ISSA) [employer] [facility] [address] [place] [address] Awais Cedeno MD, PhD, TOMY Lab Interpretation Abnormal (test code = 17808-9) [facility] lambda light chains, [id number] 10:53:00 Test Item Value Reference Interpretation Comments Range [place] Lt Chain,Free 129.5 mg/L 3.3-19.4 H (test code = 22653-7) Lambda Lt 99.3 mg/L 5.7-26.3 H Chain,Free (test code = 22446-7) [place]/Lambda,Free 1.3 0.26-1.65 Free shantell a/lambda (test code = ratio in serum of [id number]) normal individu als is 0.26-1.65. Excessproductio n of free kappa or l ambda chains can alte r this ratio. Monoclon alfree light chains ar e found in serum of pat ients with multiple myeloma,Waldens trom's macroglobulinem ia, mu-heavy chain disease, primary amyloidosis,lig ht chain deposition dise ase, monoclonal gamm opathy of undeterminedsig nificanc e, and lymphoprolifera tive disorders. Ana Paula urement of free lightch ain concentration i n serum is useful for diagnosis, prog nosis, monitoringdisea se activity and fo llowing response to the rapy of these disorders . ISSA (test code = Performing Lab ISSA) [employer] [address] [place] [address] Awais Cedeno MD, PhD, TOMY Lab Interpretation Abnormal (test code = 04298-5) [facility] [id number] 08:14:00 Test Item Value Reference Range Interpretation Comments POC-GLUCOSE METER 107 mg/dL 70-110 : Notified RN/: TESTED (BEAKER) (test code AT [facility] [address] = 1538) JONO [facility] [address]: Bo[employer]wain[employer] Mate/Techni cornelia ID = [id number] for Thak er, [employer]it[employer]en BASIC METABOLIC [id number] 05:19:00 Test Item Value Reference Range Interpretation Comments SODIUM (BEAKER) 140 meq/L 135-148 (test code = 381) POTASSIUM (BEAKER) 4.6 meq/L 3.6-5.5 (test code = 379) CHLORIDE (BEAKER) 106 meq/L 98-106 (test code = 382) CO2 (BEAKER) (test 24 meq/L 20-29 code = 355) BLOOD UREA NITROGEN 67 mg/dL 10-26 H (BEAKER) (test code = 354) CREATININE (BEAKER) 3.26 mg/dL 0.50-1.20 H (test code = 358) GLUCOSE RANDOM 118 mg/dL 70-110 H (BEAKER) (test code = 652) CALCIUM (BEAKER) 8.9 mg/dL 8.5-10.5 (test code = 697) EGFR (BEAKER) (test 21 mL/min/1.73 ESTIMA JOSÉ LUIS GFR IS code = 1092) sq m NOT ACCURATE CREATININE CLEARANCE IN PREDICTING GLOMERULAR FILTRATION RATE . ESTIMATED GFR I S NOT APPLICABLE FOR DIALYSIS PATIEN TS. [employer] Mate ID - ANSBERTOGOperator ID - ANSBERTOGOperator ID - ANSBERTOGOperator ID - ANSBERTOGOperatorID - ANSBERTOGOperator ID - ANSBERTOGOperator ID - ANSBERTOGOperator ID - ANSBERTOGOperator ID - ANSBERTOGOperator ID - ANSBERTOGOperator ID - ANSBERTOGOperator ID - ANSBERTOGOperator ID - ANSBERTOG CBC W/PLT COUNT & AUTO [id number] 05:05:00 Test Item Value Reference Range Interpretation Comments WHITE BLOOD CELL COUNT (BEAKER) 11.7 K/ L 4.0-10.0 H (test code = 775) RED BLOOD CELL COUNT (BEAKER) 3.46 M/ L 4.20-5.80 L (test code = 761) HEMOGLOBIN (BEAKER) (test code = 10.8 GM/DL 13.0-16.8 L 410) HEMATOCRIT (BEAKER) (test code = 33.5 % 36.0-50.0 L 411) MEAN CORPUSCULAR VOLUME (BEAKER) 96.8 fL 82.0-99.0 (test code = 753) MEAN CORPUSCULAR HEMOGLOBIN 31.2 pg 27.0-33.0 (BEAKER) (test code = 751) MEAN CORPUSCULAR HEMOGLOBIN CONC 32.2 GM/DL 32.0-36.0 (BEAKER) (test code = 752) RED CELL DISTRIBUTION WIDTH 12.9 % 12.0-15.0 (BEAKER) (test code = 412) PLATELET COUNT (BEAKER) (test 306 K/CU MM 150-430 code = 756) MEAN PLATELET VOLUME (BEAKER) 11.2 fL 6.0-11.5 (test code = 754) NUCLEATED RED BLOOD CELLS 0 /100 WBC 0-0 (BEAKER) (test code = 413) NEUTROPHILS RELATIVE PERCENT 69 % (BEAKER) (test code = 429) LYMPHOCYTES RELATIVE PERCENT 14 % (BEAKER) (test code = 430) MONOCYTES RELATIVE PERCENT 10 % (BEAKER) (test code = 431) EOSINOPHILS RELATIVE PERCENT 4 % (BEAKER) (test code = 432) BASOPHILS RELATIVE PERCENT 1 % (BEAKER) (test code = 437) NEUTROPHILS ABSOLUTE COUNT 8.08 K/ L 1.80-8.00 H (BEAKER) (test code = 670) LYMPHOCYTES ABSOLUTE COUNT 1.60 K/ L 1.48-4.50 (BEAKER) (test code = 414) MONOCYTES ABSOLUTE COUNT (BEAKER) 1.16 K/ L 0.00-1.30 (test code = 415) EOSINOPHILS ABSOLUTE COUNT 0.49 K/ L 0.00-0.50 (BEAKER) (test code = 416) BASOPHILS ABSOLUTE COUNT (BEAKER) 0.09 K/ L 0.00-0.20 (test code = 417) IMMATURE GRANULOCYTES-RELATIVE 2 % 0-0 H PERCENT (BEAKER) (test code = 2801) POCT-GLUCOSE [id number] 22:18:00 Test Item Value Reference Range Interpretation Comments POC-GLUCOSE METER 190 mg/dL 70-110 H : TESTED A T [address] (BEAKER) (test code [address], = 1538) [facility] [address]: Bo[employer]S Mate/Techni cornelia ID = [id number] for John Basilio POCT-GLUCOSE [id number] 15:30:00 Test Item Value Reference Range Interpretation Comments POC-GLUCOSE METER 197 mg/dL 70-110 H : TESTED A T [facility] [address] (BEAKER) (test code [address], = 1538) [facility] [address]: Bo[employer]S Mate/Techni cornelia ID = [id number] for Buff ord, Jesi Protein electrophoresis, [id number] 14:18:00 Test Item Value Reference Range Interpretation Comments Albumin Fraction 2.5 See_Comment L [Automated (test code = 405) message] [employer] system which generated this result transmitted reference range : 3.5 - 5.5 gm/dL . The reference range was not used to interpr et this result as normal/abnormal . Alpha 1 Fraction 0.3 See_Comment [Automated (test code = 389) message] [employer] system which generated this result transmitted reference range : 0.2 - 0.4 gm/dL . The reference range was not used to interpr et this result as normal/abnormal . Alpha 2 Fraction 0.8 See_Comment [Automated (test code = 390) message] [employer] system which generated this result transmitted reference range : 0.5 - 0.9 gm/dL . The reference range was not used to interpr et this result as normal/abnormal . Beta Fraction (test 0.9 See_Comment [Automa josé luis code = 392) message] The system which generated this result transmitted reference range : 0.6 - 1.1 gm/dL . The reference range was not used to interpr et this result as normal/abnormal . Gamma Globulin 0.9 See_Comment [Automated Fraction (test code = messag e] The 391) system which generated this result transmitted reference range : 0.7 - 1.7 gm/dL . The reference range was not used to interpr et this result as normal/abnormal . Interpretation (test Pattern code = 2615) suggestive of renal dysfunction and components of acute inflammation. No monoclonal bands detected. Pathologist: (test Angela code = 2616) MD Carley (electronic signature) Protein, Total (test 5.4 See_Comment L [Autom ated code = 2200) message] The system which generated this result transmitted reference range : 6.0 - 8.3 gm/dL . The reference range was not used to interpr et this result as normal/abnormal . ISSA (test code = ISSA) Bo[employer] Mate ID - PIAYA L Lab Interpretation Abnormal (test code = 06449-6) [facility], [id number] 14:18:00 Test Item Value Reference Range Interpretation Comments Albumin Fraction 2.5 See_Comment L [Automated (test code = 405) message] [employer] system which generated this result transmitted reference range : 3.5 - 5.5 gm/dL . The reference range was not used to interpr et this result as normal/abnormal . Alpha 1 Fraction 0.3 See_Comment [Automated (test code = 389) message] [employer] system which generated this result transmitted reference range : 0.2 - 0.4 gm/dL . The reference range was not used to interpr et this result as normal/abnormal . Alpha 2 Fraction 0.8 See_Comment [Automated (test code = 390) message] [employer] system which generated this result transmitted reference range : 0.5 - 0.9 gm/dL . The reference range was not used to interpr et this result as normal/abnormal . Beta Fraction (test 0.9 See_Comment [Automa josé luis code = 392) message] The system which generated this result transmitted reference range : 0.6 - 1.1 gm/dL . The reference range was not used to interpr et this result as normal/abnormal . Gamma Globulin 0.9 See_Comment [Automated Fraction (test code = messag e] The 391) system which generated this result transmitted reference range : 0.7 - 1.7 gm/dL . The reference range was not used to interpr et this result as normal/abnormal . Interpretation (test Pattern code = 2615) suggestive of renal dysfunction and components of acute inflammation. No monoclonal bands detected. Pathologist: (test Angela code = 2616) MD Carley (electronic signature) Protein, Total (test 5.4 See_Comment L [Autom ated code = 4881) message] The system which generated this result transmitted reference range : 6.0 - 8.3 gm/dL . The reference range was not used to interpr et this result as normal/abnormal . ISSA (test code = ISSA) [employer] Mate ID - PIAYA L Lab Interpretation Abnormal (test code = 55648-1) [facility], [id number] 14:18:00 Test Item Value Reference Range Interpretation Comments Albumin Fraction 2.5 See_Comment L [Automated (test code = 405) message] [employer] system which generated this result transmitted reference range : 3.5 - 5.5 gm/dL . The reference range was not used to interpr et this result as normal/abnormal . Alpha 1 Fraction 0.3 See_Comment [Automated (test code = 389) message] [employer] system which generated this result transmitted reference range : 0.2 - 0.4 gm/dL . The reference range was not used to interpr et this result as normal/abnormal . Alpha 2 Fraction 0.8 See_Comment [Automated (test code = 390) message] [employer] system which generated this result transmitted reference range : 0.5 - 0.9 gm/dL . The reference range was not used to interpr et this result as normal/abnormal . Beta Fraction (test 0.9 See_Comment [Automa josé luis code = 392) message] The system which generated this result transmitted reference range : 0.6 - 1.1 gm/dL . The reference range was not used to interpr et this result as normal/abnormal . Gamma Globulin 0.9 See_Comment [Automated Fraction (test code = messag e] The 391) system which generated this result transmitted reference range : 0.7 - 1.7 gm/dL . The reference range was not used to interpr et this result as normal/abnormal . Interpretation (test Pattern code = 2615) suggestive of renal dysfunction and components of acute inflammation. No monoclonal bands detected. Pathologist: (test Angela code = 2616) MD Carley (electronic signature) Protein, Total (test 5.4 See_Comment L [Autom ated code = 5364) message] The system which generated this result transmitted reference range : 6.0 - 8.3 gm/dL . The reference range was not used to interpr et this result as normal/abnormal . ISSA (test code = ISSA) Bo[employer] Mate ID - PIAYA L Lab Interpretation Abnormal (test code = 99674-7) [facility], [id number] 14:18:00 Test Item Value Reference Range Interpretation Comments Albumin Fraction 2.5 See_Comment L [Automated (test code = 405) message] [employer] system which generated this result transmitted reference range : 3.5 - 5.5 gm/dL . The reference range was not used to interpr et this result as normal/abnormal . Alpha 1 Fraction 0.3 See_Comment [Automated (test code = 389) message] [employer] system which generated this result transmitted reference range : 0.2 - 0.4 gm/dL . The reference range was not used to interpr et this result as normal/abnormal . Alpha 2 Fraction 0.8 See_Comment [Automated (test code = 390) message] T system which generated this result transmitted reference range : 0.5 - 0.9 gm/dL . The reference range was not used to interpr et this result as normal/abnormal . Beta Fraction (test 0.9 See_Comment [Automa josé luis code = 392) message] The system which generated this result transmitted reference range : 0.6 - 1.1 gm/dL . The reference range was not used to interpr et this result as normal/abnormal . Gamma Globulin 0.9 See_Comment [Automated Fraction (test code = messag e] The 391) system which generated this result transmitted reference range : 0.7 - 1.7 gm/dL . The reference range was not used to interpr et this result as normal/abnormal . Interpretation (test Pattern code = 2615) suggestive of renal dysfunction and components of acute inflammation. No monoclonal bands detected. Pathologist: (test Angela code = 2616) MD Carley (electronic signature) Protein, Total (test 5.4 See_Comment L [Autom ated code = 0303) message] The system which generated this result transmitted reference range : 6.0 - 8.3 gm/dL . The reference range was not used to interpr et this result as normal/abnormal . ISSA (test code = ISSA) Bo[employer] Mate ID - PIAYA L Lab Interpretation Abnormal (test code = 42939-1) [facility], [id number] 14:18:00 Test Item Value Reference Range Interpretation Comments Albumin Fraction 2.5 See_Comment L [Automated (test code = 405) message] T system which generated this result transmitted reference range : 3.5 - 5.5 gm/dL . The reference range was not used to interpr et this result as normal/abnormal . Alpha 1 Fraction 0.3 See_Comment [Automated (test code = 389) message] T system which generated this result transmitted reference range : 0.2 - 0.4 gm/dL . The reference range was not used to interpr et this result as normal/abnormal . Alpha 2 Fraction 0.8 See_Comment [Automated (test code = 390) message] T [employer] system which generated this result transmitted reference range : 0.5 - 0.9 gm/dL . The reference range was not used to interpr et this result as normal/abnormal . Beta Fraction (test 0.9 See_Comment [Automa josé luis code = 392) message] The system which generated this result transmitted reference range : 0.6 - 1.1 gm/dL . The reference range was not used to interpr et this result as normal/abnormal . Gamma Globulin 0.9 See_Comment [Automated Fraction (test code = messag e] The 391) system which generated this result transmitted reference range : 0.7 - 1.7 gm/dL . The reference range was not used to interpr et this result as normal/abnormal . Interpretation (test Pattern code = 2615) suggestive of renal dysfunction and components of acute inflammation. No monoclonal bands detected. Pathologist: (test Angela code = 2616) MD Carley (electronic signature) Protein, Total (test 5.4 See_Comment L [Autom ated code = 8240) message] The system which generated this result transmitted reference range : 6.0 - 8.3 gm/dL . The reference range was not used to interpr et this result as normal/abnormal . ISSA (test code = ISSA) [employer] Mate ID - PIAYA L Lab Interpretation Abnormal (test code = 64537-6) [facility], [id number] 14:18:00 Test Item Value Reference Range Interpretation Comments Albumin Fraction 2.5 See_Comment L [Automated (test code = 405) message] [employer] system which generated this result transmitted reference range : 3.5 - 5.5 gm/dL . The reference range was not used to interpr et this result as normal/abnormal . Alpha 1 Fraction 0.3 See_Comment [Automated (test code = 389) message] [employer] system which generated this result transmitted reference range : 0.2 - 0.4 gm/dL . The reference range was not used to interpr et this result as normal/abnormal . Alpha 2 Fraction 0.8 See_Comment [Automated (test code = 390) message] [employer] system which generated this result transmitted reference range : 0.5 - 0.9 gm/dL . The reference range was not used to interpr et this result as normal/abnormal . Beta Fraction (test 0.9 See_Comment [Automa josé luis code = 392) message] The system which generated this result transmitted reference range : 0.6 - 1.1 gm/dL . The reference range was not used to interpr et this result as normal/abnormal . Gamma Globulin 0.9 See_Comment [Automated Fraction (test code = messag e] The 391) system which generated this result transmitted reference range : 0.7 - 1.7 gm/dL . The reference range was not used to interpr et this result as normal/abnormal . Interpretation (test Pattern code = 2615) suggestive of renal dysfunction and components of acute inflammation. No monoclonal bands detected. Pathologist: (test Angela code = 2616) MD Carley (electronic signature) Protein, Total (test 5.4 See_Comment L [Autom ated code = 2660) message] The system which generated this result transmitted reference range : 6.0 - 8.3 gm/dL . The reference range was not used to interpr et this result as normal/abnormal . ISSA (test code = ISSA) [employer] Mate ID - PIAYA L Lab Interpretation Abnormal (test code = 26144-3) [facility], [id number] 14:18:00 Test Item Value Reference Range Interpretation Comments Albumin Fraction 2.5 See_Comment L [Automated (test code = 405) message] T system which generated this result transmitted reference range : 3.5 - 5.5 gm/dL . The reference range was not used to interpr et this result as normal/abnormal . Alpha 1 Fraction 0.3 See_Comment [Automated (test code = 389) message] T [employer] system which generated this result transmitted reference range : 0.2 - 0.4 gm/dL . The reference range was not used to interpr et this result as normal/abnormal . Alpha 2 Fraction 0.8 See_Comment [Automated (test code = 390) message] [employer] system which generated this result transmitted reference range : 0.5 - 0.9 gm/dL . The reference range was not used to interpr et this result as normal/abnormal . Beta Fraction (test 0.9 See_Comment [Automa josé luis code = 392) message] The system which generated this result transmitted reference range : 0.6 - 1.1 gm/dL . The reference range was not used to interpr et this result as normal/abnormal . Gamma Globulin 0.9 See_Comment [Automated Fraction (test code = messag e] The 391) system which generated this result transmitted reference range : 0.7 - 1.7 gm/dL . The reference range was not used to interpr et this result as normal/abnormal . Interpretation (test Pattern code = 2615) suggestive of renal dysfunction and components of acute inflammation. No monoclonal bands detected. Pathologist: (test Angela code = 2616) MD Carley (electronic signature) Protein, Total (test 5.4 See_Comment L [Autom ated code = 2660) message] The system which generated this result transmitted reference range : 6.0 - 8.3 gm/dL . The reference range was not used to interpr et this result as normal/abnormal . ISSA (test code = ISSA) Bo[employer] Mate ID - PIAYA L Lab Interpretation Abnormal (test code = 29301-1) [facility]ilionPROTEIN ELECTROPHORESIS, [id number] 14:18:00 Test Item Value Reference Range Interpretation Comments ALBUMIN FRACTION 2.5 gm/dL 3.5-5.5 L (BEAKER) (test code = 405) ALPHA 1 FRACTION 0.3 gm/dL 0.2-0.4 (BEAKER) (test code = 389) ALPHA 2 FRACTION 0.8 gm/dL 0.5-0.9 (BEAKER) (test code = 390) BETA FRACTION 0.9 gm/dL 0.6-1.1 (BEAKER) (test code = 392) GAMMA GLOBULIN 0.9 gm/dL 0.7-1.7 FRACTION (BEAKER) (test code = 391) INTERPRETATION-119 Pattern suggestive of (BEAKER) (test code = renal dysfunction and 2615) components of acute inflammation. No monoclonal bands detected. [id number] Angela Howe MD (BEAKER) (test code = (electronic signature) 2616) PROTEIN TOTAL SERUM, 5.4 gm/dL 6.0-8.3 L SPEP (BEAKER) (test code = 2660) [employer] Mate ID - PIAYA LANAEROBIC [id number] 14:06:00 Test Item Value Reference Range Interpretation Comments CULTURE (BEAKER) (test No anaerobes isolated code = 1095) ANAEROBIC [id number] 14:05:00 Test Item Value Reference Range Interpretation Comments CULTURE (BEAKER) (test No anaerobes isolated code = 1095) POCT-GLUCOSE [id number] 11:50:00 Test Item Value Reference Range Interpretation Comments POC-GLUCOSE METER 151 mg/dL 70-110 H : TESTED A T [facility] [address] (BEAKER) (test code [address], = 1538) [facility] [address]: Boatswain'S Mate/Techni cornelia ID = [id number] for Buff ord, Jesi ANG, NON-TUNNELED CATH/PICC >3 Y.O. WITH [id number] 11:32:00Reason for exam:->PICC line placement for detention IV abx. Okay to place per [facility] FRANDY FORD : 1975 Sex: MFINAL REPORT Procedure: PICC line insertion. History: Need for long-term IV access. Family Counselor: Charlie Grigsby MD. Clothing Examiner: None Modality: Sonography and fluoroscopy. DOSE REDUCTION: The examination was performed according to departmental dose-optimization program. Fluoro time: 17 seconds and 0 minutes. Radiation dose for this procedure was 5 mGy. Number of images: 5 Sedation: No conscious sedation was administered. Anesthesia: 1% lidocaine with bicarbonate local infiltration. Estimated blood loss: < 5 cc. Technique: Informed written consent was obtained. Discussion of risks, benefits, and alternatives were made with the patient. The patient expressed understanding and agreed to proceed. A universal timeout was performed prior to starting the procedure. Allpersonnel used personal protective equipment. The operators additionally used sterile gown and gloves. A preliminary ultrasonogram of the Right upper extremity was performed. It revealed a patent and compressible right mid upper arm brachial vein. Pertinent ultrasound images were stored for documentation in the PACS. Sterile prep and drape of the mid upper arm surgical site was performed. A tourniquet was placed in the proximal upper arm. Using real-time ultrasonographic guidance after local anesthesia and dermatotomy, a micropuncture needle was advanced into the target vein followed by placementof an 018 wire. The wire was advanced under fluoroscopic guidance into the central venous system. Over the wire a peel-away sheath was placed. A PICC line was trimmed to an appropriate length and introduced through the peel-away sheath. The catheter tip was positioned at the distal SVC/RA. The catheter aspirated and flushed well. The catheter was terminally packed with normal saline. The catheter wassecured to skin using nonabsorbable suture and/or an adhesive device. An aseptic dressing was applied. The patient was discharged from the department in stable condition. Complications: None immediate. Impression: Successful ultrasound and fluoroscopic guided placement of a 5 B[place]wan[place] dual lumen PICC line via a right mid upper arm brachial vein approach with the catheter tip in distal SVC/RA, a satisfactory position for use. Thank you for the opportunity to assist in the care of your patient. Signed: Charlie Grigsby MDReport Verified Date/Time: 04/05/2020 11:32:55 Reading Location: [facility] Radiology Reading Room IR PICC line placement older than 5 [id number] 11:32:00 Interface, External Ris In - 04/05/2020 11:35 AM CSTFINAL REPORT Procedure: PICC line insertion. History: Need for long-term IV access. Family Counselor: Charlie Grigsby MD. Clothing Examiner: None Modality: Sonography and fluoroscopy. DOSE REDUCTION: The examination was performed according to departmental dose-optimization program. Fluoro time: 17 seconds and 0 minutes. Radiationdose for this procedure was 5 mGy. Number of images: 5 Sedation: No conscious sedation was administered. Anesthesia: 1% lidocaine with bicarbonate local infiltration. Estimated blood loss: < 5 cc. Technique: Informed written consent was obtained. Discussion of risks, benefits, and alternatives were made with the patient. The patient expressed understanding and agreed to proceed. A universal timeout was performed prior to starting the procedure. All personnel used personal protective equipment. The operatorsadditionally used sterile gown and gloves. A preliminary ultrasonogram of the Right upper extremity was performed. It revealed a patent and compressible right mid upper arm brachial vein. Pertinent ultrasound images were stored for documentation in the PACS. Sterile prep and drape of the mid upper arm surgical site was performed. A tourniquet was placed in the proximal upper arm. Using real-time ultrasonographic guidance after local anesthesia and dermatotomy, a micropuncture needle was advanced into the target vein followed by placement of an 018 wire. The wire was advanced under fluoroscopic guidance into the central venous system. Over the wire a peel-away sheath was placed. A PICC line was tr immed to an appropriate length and introduced through the peel-away sheath. The catheter tip was positioned at the distal SVC/RA. The catheter aspirated and flushed well. The catheter was terminally packed with normal saline. The catheter was secured to skin using nonabsorbable suture and/or an adhesive device. An aseptic dressing was applied. The patient was discharged from the department in stable condition. Complications: None immediate. Impression: Successful ultrasound and fluoroscopic guided placement of a 5 [place]wanan dual lumen PICC line via a right mid upper arm brachial vein approach with the catheter tip in distal SVC/RA, a satisfactory position for use. Thank you for the opportunity to assist in the care of your patient. Signed: Charlie Grigsby MDReport Verified Date/Time: 04/05/2020 11:32:55 Reading Location: [facility] than 5 [id number] 11:32:00 Interface, External Ris In - 04/05/2020 11:35 AM CSTFINAL REPORT Procedure: PICC line insertion. History: Need for long-term IV access. Family Counselor: Charlie Grigsby MD. Clothing Examiner: None Modality: Sonography and fluoroscopy. DOSE REDUCTION: The examination was performed according to departmental dose-optimization program. Fluoro time: 17 seconds and 0 minutes. Radiationdose for this procedure was 5 mGy. Number of images: 5 Sedation: No conscious sedation was administered. Anesthesia: 1% lidocaine with bicarbonate local infiltration. Estimated blood loss: < 5 cc. Technique: Informed written consent was obtained. Discussion of risks, benefits, and alternatives were made with the patient. The patient expressed understanding and agreed to proceed. A universal timeout was performed prior to starting the procedure. All personnel used personal protective equipment. The operatorsadditionally used sterile gown and gloves. A preliminary ultrasonogram of the Right upper extremity was performed. It revealed a patent and compressible right mid upper arm brachial vein. Pertinent ultrasound images were stored for documentation in the PACS. Sterile prep and drape of the mid upper arm surgical site was performed. A tourniquet was placed in the proximal upper arm. Using real-time ultrasonographic guidance after local anesthesia and dermatotomy, a micropuncture needle was advanced into the target vein followed by placement of an 018 wire. The wire was advanced under fluoroscopic guidance into the central venous system. Over the wire a peel-away sheath was placed. A PICC line was tr immed to an appropriate length and introduced through the peel-away sheath. The catheter tip was positioned at the distal SVC/RA. The catheter aspirated and flushed well. The catheter was terminally packed with normal saline. The catheter was secured to skin using nonabsorbable suture and/or an adhesive device. An aseptic dressing was applied. The patient was discharged from the department in stable condition. Complications: None immediate. Impression: Successful ultrasound and fluoroscopic guided placement of a 5 [place]wanan dual lumen PICC line via a right mid upper arm brachial vein approach with the catheter tip in distal SVC/RA, a satisfactory position for use. Thank you for the opportunity to assist in the care of your patient. Signed: Charlie Grigsby MDReport Verified Date/Time: 04/05/2020 11:32:55 Reading Location: [facility] line placement older than 5 [id number] 11:32:00 Interface, External Ris In - 04/05/2020 11:35 AM CSTFINAL REPORT Procedure: PICC line insertion. History: Need for long-term IV access. Family Counselor: Charlie Grigsby MD. Clothing Examiner: None Modality: Sonography and fluoroscopy. DOSE REDUCTION: The examination was performed according to departmental dose-optimization program. Fluoro time: 17 seconds and 0 minutes. Radiationdose for this procedure was 5 mGy. Number of images: 5 Sedation: No conscious sedation was administered. Anesthesia: 1% lidocaine with bicarbonate local infiltration. Estimated blood loss: < 5 cc. Technique: Informed written consent was obtained. Discussion of risks, benefits, and alternatives were made with the patient. The patient expressed understanding and agreed to proceed. A universal timeout was performed prior to starting the procedure. All personnel used personal protective equipment. The operatorsadditionally used sterile gown and gloves. A preliminary ultrasonogram of the Right upper extremity was performed. It revealed a patent and compressible right mid upper arm brachial vein. Pertinent ultrasound images were stored for documentation in the PACS. Sterile prep and drape of the mid upper arm surgical site was performed. A tourniquet was placed in the proximal upper arm. Using real-time ultrasonographic guidance after local anesthesia and dermatotomy, a micropuncture needle was advanced into the target vein followed by placement of an 018 wire. The wire was advanced under fluoroscopic guidance into the central venous system. Over the wire a peel-away sheath was placed. A PICC line was tr immed to an appropriate length and introduced through the peel-away sheath. The catheter tip was positioned at the distal SVC/RA. The catheter aspirated and flushed well. The catheter was terminally packed with normal saline. The catheter was secured to skin using nonabsorbable suture and/or an adhesive device. An aseptic dressing was applied. The patient was discharged from the department in stable condition. Complications: None immediate. Impression: Successful ultrasound and fluoroscopic guided placement of a 5 [place] dual lumen PICC line via a right mid upper arm brachial vein approach with the catheter tip in distal SVC/RA, a satisfactory position for use. Thank you for the opportunity to assist in the care of your patient. Signed: Charlie Grigsby MDReport Verified Date/Time: 04/05/2020 11:32:55 Reading Location: [facility] P[facility] line placement older than 5 [id number] 11:32:00 Interface, External Ris In - 04/05/2020 11:35 AM CSTFINAL REPORT Procedure: PICC line insertion. History: Need for long-term IV access. Family Counselor: Charlie Grigsby MD. Clothing Examiner: None Modality: Sonography and fluoroscopy. DOSE REDUCTION: The examination was performed according to departmental dose-optimization program. Fluoro time: 17 seconds and 0 minutes. Radiationdose for this procedure was 5 mGy. Number of images: 5 Sedation: No conscious sedation was administered. Anesthesia: 1% lidocaine with bicarbonate local infiltration. Estimated blood loss: < 5 cc. Technique: Informed written consent was obtained. Discussion of risks, benefits, and alternatives were made with the patient. The patient expressed understanding and agreed to proceed. A universal timeout was performed prior to starting the procedure. All personnel used personal protective equipment. The operatorsadditionally used sterile gown and gloves. A preliminary ultrasonogram of the Right upper extremity was performed. It revealed a patent and compressible right mid upper arm brachial vein. Pertinent ultrasound images were stored for documentation in the PACS. Sterile prep and drape of the mid upper arm surgical site was performed. A tourniquet was placed in the proximal upper arm. Using real-time ultrasonographic guidance after local anesthesia and dermatotomy, a micropuncture needle was advanced into the target vein followed by placement of an 018 wire. The wire was advanced under fluoroscopic guidance into the central venous system. Over the wire a peel-away sheath was placed. A PICC line was tr immed to an appropriate length and introduced through the peel-away sheath. The catheter tip was positioned at the distal SVC/RA. The catheter aspirated and flushed well. The catheter was terminally packed with normal saline. The catheter was secured to skin using nonabsorbable suture and/or an adhesive device. An aseptic dressing was applied. The patient was discharged from the department in stable condition. Complications: None immediate. Impression: Successful ultrasound and fluoroscopic guided placement of a 5 [place] dual lumen PICC line via a right mid upper arm brachial vein approach with the catheter tip in distal SVC/RA, a satisfactory position for use. Thank you for the opportunity to assist in the care of your patient. Signed: Charlie Grigsby Verified Date/Time: 04/05/2020 11:32:55 Reading Location: [facility] [id number] 09:34:00 Test Item Value Reference Range Interpretation Comments POC-GLUCOSE METER 72 mg/dL 70-110 : TESTED A T [address] (BEAKER) (test code = [address], [address]) [facility] [id number]: [employer] Mate/Techni cornelia ID = [id number] for Rina Flores POCT-GLUCOSE [id number] 08:11:00 Test Item Value Reference Range Interpretation Comments POC-GLUCOSE METER 83 mg/dL 70-110 : TESTED A T [address] (BEAKER) (test code = [address], 15[address]) [place] [id number]: Bo[employer] Mate/Techni cornelia ID = [id number] for Buff ord, Jesi BASIC METABOLIC [id number] 06:57:00 Test Item Value Reference Range Interpretation Comments SODIUM (BEAKER) 141 meq/L 135-148 (test code = 381) POTASSIUM (BEAKER) 4.6 meq/L 3.6-5.5 (test code = 379) CHLORIDE (BEAKER) 107 meq/L 98-106 H (test code = 382) CO2 (BEAKER) (test 22 meq/L 20-29 code = 355) BLOOD UREA NITROGEN 75 mg/dL 10-26 H (BEAKER) (test code = 354) CREATININE (BEAKER) 3.67 mg/dL 0.50-1.20 H (test code = 358) GLUCOSE RANDOM 127 mg/dL 70-110 H (BEAKER) (test code = 652) CALCIUM (BEAKER) 8.5 mg/dL 8.5-10.5 (test code = 697) EGFR (BEAKER) (test 18 mL/min/1.73 ESTIMA JOSÉ LUIS GFR IS code = 1092) sq m NOT ACCURATE CREATININE CLEARANCE IN PREDICTING GLOMERULAR FILTRATION RATE . ESTIMATED GFR I S NOT APPLICABLE FOR DIALYSIS PATIEN TS. [employer] ID - LITOOperator ID - LITOOperator ID - LITOOperator ID - LITOOperator ID - LITOOperator ID - LITOOperator ID - LITOOperator ID - LITOOperator ID - LITOOperator ID - LITOOperator ID - LITOOperator ID - LITOOperator ID - LITOCBC W/PLT COUNT & AUTO [id number] 05:55:00 Test Item Value Reference Range Interpretation Comments WHITE BLOOD CELL COUNT (BEAKER) 13.1 K/ L 4.0-10.0 H (test code = 775) RED BLOOD CELL COUNT (BEAKER) 3.48 M/ L 4.20-5.80 L (test code = 761) HEMOGLOBIN (BEAKER) (test code = 10.7 GM/DL 13.0-16.8 L 410) HEMATOCRIT (BEAKER) (test code = 33.5 % 36.0-50.0 L 411) MEAN CORPUSCULAR VOLUME (BEAKER) 96.3 fL 82.0-99.0 (test code = 753) MEAN CORPUSCULAR HEMOGLOBIN 30.7 pg 27.0-33.0 (BEAKER) (test code = 751) MEAN CORPUSCULAR HEMOGLOBIN CONC 31.9 GM/DL 32.0-36.0 L (BEAKER) (test code = 752) RED CELL DISTRIBUTION WIDTH 12.8 % 12.0-15.0 (BEAKER) (test code = 412) PLATELET COUNT (BEAKER) (test 273 K/CU MM 150-430 code = 756) MEAN PLATELET VOLUME (BEAKER) 11.5 fL 6.0-11.5 (test code = 754) NUCLEATED RED BLOOD CELLS 0 /100 WBC 0-0 (BEAKER) (test code = 413) NEUTROPHILS RELATIVE PERCENT 74 % (BEAKER) (test code = 429) LYMPHOCYTES RELATIVE PERCENT 12 % (BEAKER) (test code = 430) MONOCYTES RELATIVE PERCENT 9 % (BEAKER) (test code = 431) EOSINOPHILS RELATIVE PERCENT 3 % (BEAKER) (test code = 432) BASOPHILS RELATIVE PERCENT 1 % (BEAKER) (test code = 437) NEUTROPHILS ABSOLUTE COUNT 9.71 K/ L 1.80-8.00 H (BEAKER) (test code = 670) LYMPHOCYTES ABSOLUTE COUNT 1.57 K/ L 1.48-4.50 (BEAKER) (test code = 414) MONOCYTES ABSOLUTE COUNT (BEAKER) 1.15 K/ L 0.00-1.30 (test code = 415) EOSINOPHILS ABSOLUTE COUNT 0.35 K/ L 0.00-0.50 (BEAKER) (test code = 416) BASOPHILS ABSOLUTE COUNT (BEAKER) 0.08 K/ L 0.00-0.20 (test code = 417) IMMATURE GRANULOCYTES-RELATIVE 2 % 0-0 H PERCENT (BEAKER) (test code = 2801) Blood Culture - Routine (Left Venipuncture)2020-04-05 01:01:00 Test Item Value Reference Range Interpretation Comments Result (test code = No growth in 5 days 6463-4) [facility] 2020-04-05 01:01:00 Test Item Value Reference Range Interpretation Comments Result (test code = No growth in 5 days 6463-4) [facility] Culture - Routine (Left Venipuncture) 2020-04-05 01:01:00 Test Item Value Reference Range Interpretation Comments Result (test code = No growth in 5 days 6463-4) [facility] 2020-04-05 01:01:00 Test Item Value Reference Range Interpretation Comments Result (test code = No growth in 5 days 6463-4) [facility] Culture - Routine (Left Venipuncture) 2020-04-05 01:01:00 Test Item Value Reference Range Interpretation Comments Result (test code = No growth in 5 days 6463-4) [facility] Culture - Routine (Left Venipuncture) 2020-04-05 01:01:00 Test Item Value Reference Range Interpretation Comments Result (test code = No growth in 5 days 6463-4) [facility] Culture - Routine (Left Venipuncture) 2020-04-05 01:01:00 Test Item Value Reference Range Interpretation Comments Result (test code = No growth in 5 days 6463-4) [facility] [id number] 01:01:00 Test Item Value Reference Range Interpretation Comments CULTURE (BEAKER) (test No growth in 5 days code = 1095) BLOOD [id number] 01:01:00 Test Item Value Reference Range Interpretation Comments CULTURE (BEAKER) (test No growth in 5 days code = 1095) Vancomycin level, [id number] 00:11:00 Test Item Value Reference Range Interpretation Comments Vancomycin Tr (test code = 17.1 ug/mL 10-20 4092-3) ISSA (test code = ISSA) [employer] ID - ARCHIE Lab Interpretation (test Normal code = 53120-5) [facility] [id number] 00:11:00 Test Item Value Reference Range Interpretation Comments Vancomycin Tr (test code = 17.1 ug/mL 10-20 4092-3) ISSA (test code = ISSA) [employer] ID - ARCHIE Lab Interpretation (test Normal code = 64397-9) [facility], [id number] 00:11:00 Test Item Value Reference Range Interpretation Comments Vancomycin Tr (test code = 17.1 ug/mL 10-20 4092-3) ISSA (test code = ISSA) [employer] ID - ARCHIE Lab Interpretation (test Normal code = 44870-3) [facility], [id number] 00:11:00 Test Item Value Reference Range Interpretation Comments Vancomycin Tr (test code = 17.1 ug/mL 10-20 4092-3) ISSA (test code = ISSA) [employer] ID - ARCHIE Lab Interpretation (test Normal code = 27997-5) [facility], [id number] 00:11:00 Test Item Value Reference Range Interpretation Comments Vancomycin Tr (test code = 17.1 ug/mL 10.0-20.0 4092-3) ISSA (test code = ISSA) [employer] ID - ARCHIE Lab Interpretation (test Normal code = 90662-2) [facility], [id number] 00:11:00 Test Item Value Reference Range Interpretation Comments Vancomycin Tr (test code = 17.1 ug/mL 10.0-20.0 4092-3) ISSA (test code = ISSA) [employer] ID - ARCHIE Lab Interpretation (test Normal code = 99465-9) [facility], [id number] 00:11:00 Test Item Value Reference Range Interpretation Comments Vancomycin Tr (test code = 17.1 ug/mL 10.0-20.0 4092-3) ISSA (test code = ISSA) [employer] ID - ARCHIE Lab Interpretation (test Normal code = 41401-0) [facility]ilionVANCOMYCIN LEVEL, [id number] 00:11:00 Test Item Value Reference Range Interpretation Comments VANCOMYCIN TROUGH (BEAKER) (test 17.1 ug/mL 10.0-20.0 code = 522) [employer] ID - LITOPOCT-GLUCOSE [id number] 21:26:00 Test Item Value Reference Range Interpretation Comments POC-GLUCOSE METER 234 mg/dL 70-110 H : TESTED A T [address] (BEAKER) (test code [address], = 1538) [place] [address]: Bo[employer] Mate/Techni cornelia ID = [id number] for Tiff Roach POCT-GLUCOSE [id number] 15:54:00 Test Item Value Reference Range Interpretation Comments POC-GLUCOSE METER 200 mg/dL 70-110 H : TESTED A T [address] (BEAKER) (test code [address], = 1538) [place] [address]: [employer] Mate/Techni cornelia ID = [id number] for Tiff Roach POCT-GLUCOSE [id number] 11:48:00 Test Item Value Reference Range Interpretation Comments POC-GLUCOSE METER 197 mg/dL 70-110 H : TESTED A T [address] (BEAKER) (test code [address], = 1538) [place] [address]: Bo[employer] Mate/Techni cornelia ID = [id number] for Tiff Roach Hepatitis panel, [id number] 10:58:00 Test Item Value Reference Range Interpretation Comments Hep A IgM (test code = Nonreactive Nonreactive 56146-6) Hep B C IgM (test code = Nonreactive Nonreactive 24037-9) Hepatitis C Ab (test Nonreactive Nonreactive code = 44253-5) HBsAg Screen (test code Nonreactive Nonreactive = 5195-3) ISSA (test code = ISSA) [employer] ID - BARRERA M Lab Interpretation (test Normal code = 57689-2) [facility] panel, [id number] 10:58:00 Test Item Value Reference Range Interpretation Comments Hep A IgM (test code = Nonreactive Nonreactive 64040-7) Hep B C IgM (test code = Nonreactive Nonreactive 46333-7) Hepatitis C Ab (test Nonreactive Nonreactive code = 24393-9) HBsAg Screen (test code Nonreactive Nonreactive = 5195-3) ISSA (test code = ISSA) [employer] Mate ID - BARRERA M Lab Interpretation (test Normal code = 66787-1) [facility] panel, [id number] 10:58:00 Test Item Value Reference Range Interpretation Comments Hep A IgM (test code = Nonreactive Nonreactive 71285-0) Hep B C IgM (test code = Nonreactive Nonreactive 99770-3) Hepatitis C Ab (test Nonreactive Nonreactive code = 94661-1) HBsAg Screen (test code Nonreactive Nonreactive = 5195-3) ISSA (test code = ISSA) [employer] Mate ID - BARRERA M Lab Interpretation (test Normal code = 42212-3) [facility], [id number] 10:58:00 Test Item Value Reference Range Interpretation Comments Hep A IgM (test code = Nonreactive Nonreactive 29247-1) Hep B C IgM (test code = Nonreactive Nonreactive 25623-9) Hepatitis C Ab (test Nonreactive Nonreactive code = 22752-1) HBsAg Screen (test code Nonreactive Nonreactive = 5195-3) ISSA (test code = ISSA) [employer] Mate ID - BARRERA M Lab Interpretation (test Normal code = 15273-8) [facility] panel, [id number] 10:58:00 Test Item Value Reference Range Interpretation Comments Hep A IgM (test code = Nonreactive Nonreactive 60386-4) Hep B C IgM (test code = Nonreactive Nonreactive 78589-1) Hepatitis C Ab (test Nonreactive Nonreactive code = 45676-7) HBsAg Screen (test code Nonreactive Nonreactive = 5195-3) ISSA (test code = ISSA) [employer] Mate ID - BARRERA M Lab Interpretation (test Normal code = 35920-5) [facility] panel, [id number] 10:58:00 Test Item Value Reference Range Interpretation Comments Hep A IgM (test code = Nonreactive Nonreactive 88444-0) Hep B C IgM (test code = Nonreactive Nonreactive 66530-5) Hepatitis C Ab (test Nonreactive Nonreactive code = 15334-9) HBsAg Screen (test code Nonreactive Nonreactive = 5195-3) ISSA (test code = ISSA) [employer] Mate ID - BARRERA M Lab Interpretation (test Normal code = 12622-6) [facility], [id number] 10:58:00 Test Item Value Reference Range Interpretation Comments Hep A IgM (test code = Nonreactive Nonreactive 28483-1) Hep B C IgM (test code = Nonreactive Nonreactive 28813-8) Hepatitis C Ab (test Nonreactive Nonreactive code = 44487-0) HBsAg Screen (test code Nonreactive Nonreactive = 5195-3) ISSA (test code = ISSA) [employer] Mate ID - [id number] Lab Interpretation (test Normal code = 50710-8) [facility] [id number] 10:58:00 Test Item Value Reference Range Interpretation Comments HEPATITIS A IGM ANTIBODY (BEAKER) Nonreactive Nonreactive (test code = 498) HEPATITIS B CORE IGM ANTIBODY Nonreactive Nonreactive (BEAKER) (test code = 645) HEPATITIS C ANTIBODY (BEAKER) Nonreactive Nonreactive (test code = 367) HEPATITIS B SURFACE ANTIGEN (2) Nonreactive Nonreactive (BEAKER) (test code = 2585) [employer] Mate ID - BARRERA MUREA NITROGEN, RANDOM [id number] 10:45:00 Test Item Value Reference Range Interpretation Comments UREA NITROGEN URINE (BEAKER) (test 528 mg/dL code = 538) Reference Range: No NormalsOperator ID - BARRERA MSURGICALLY OBTAINED CULTURE + GRAM [id number] 10:30:00 Test Item Value Reference Range Interpretation Comments CULTURE (BEAKER) A <1+ Coagula se negative (test code = Staphylococcus 1095) GRAM STAIN No WBCs RESULT (BEAKER) (test code = 1123) GRAM STAIN 2+ gram positive RESULT (BEAKER) cocci in pairs (test code = and clusters 117530) SURGICALLY OBTAINED CULTURE + GRAM [id number] 09:52:00 Test Item Value Reference Range Interpretation Comments CULTURE (BEAKER) A <1+ Viridan s (test code = Streptococcus 1095) GRAM STAIN No WBCs RESULT (BEAKER) (test code = 1123) GRAM STAIN No organisms seen RESULT (BEAKER) (test code = 495034) TISSUE [id number] 09:51:00Surgical Pathology Report Case: [id number] Authorizing Provider: Laura Nguyen DPM Collected: 04/01/2020 01:12 PM Ordering Location: [facility] Med Surg 5th Floor Received: 04/02/2020 08:38 AM Pathologist: Hilda Mack MD Specimen: Fo ot, Left, Bone biopsy 1st metatarsal, left BONE, FIRST LEFT METATARSAL, BIOPSY: - BONE WITH FOCAL REPARATIVE/REGENERATIVE CHANGES - NO ACUTE OSTEOMYELITIS ISSEEN Signing Pathologist Direct Phone Line: [phone] signed by Hilda Mack MD on 04/04/2020 at 9:51 [id number]; [id number] infectionBone biopsy first metatarsal, leftThespecimen is received in fixative and labeled with the patient's name, medical record number and designated as "foot left" and consists of a bone core biopsy measuring 1.5 cm in length and 0.2 cm in diameter. The specimen is entirely submitted into A1 and into decal solution. MG/pl Performed [facility], Department of Pathology, [address] [place], [place] [address], Ghprgr [facility], Department of Pathology, [address] [place] [address], [facility], [facility] of [facility], [address] [place], [place] [address], PTFT-GLUCOSE METER 2020-04-04 08:22:00 Test Item Value Reference Range Interpretation Comments POC-GLUCOSE METER 167 mg/dL 70-110 H : TESTED A T [facility] [address] (BEAKER) (test [facility] [address], = [address]) [place] [address]: [employer] Mate/Techni cornelia ID = [id number] for Tiff Roach PTH, [id number] 07:24:00 Test Item Value Reference Range Interpretation Comments PARATHYROID HORMONE INTACT 365.7 pg/mL 15.0-90.0 H (BEAKER) (test code = 577) [employer] ID - [id number] METABOLIC [id number] 06:33:00 Test Item Value Reference Range Interpretation Comments SODIUM (BEAKER) 140 meq/L 135-148 (test code = 381) POTASSIUM (BEAKER) 4.6 meq/L 3.6-5.5 (test code = 379) CHLORIDE (BEAKER) 108 meq/L 98-106 H (test code = 382) CO2 (BEAKER) (test 22 meq/L 20-29 code = 355) BLOOD UREA NITROGEN 81 mg/dL 10-26 H (BEAKER) (test code = 354) CREATININE (BEAKER) 4.04 mg/dL 0.50-1.20 H (test code = 358) GLUCOSE RANDOM 190 mg/dL 70-110 H (BEAKER) (test code = 652) CALCIUM (BEAKER) 8.0 mg/dL 8.5-10.5 L (test code = 697) EGFR (BEAKER) (test 16 mL/min/1.73 ESTIMA JOSÉ LUIS GFR IS code = 1092) sq m NOT ACCURATE CREATININE CLEARANCE IN PREDICTING GLOMERULAR FILTRATION RATE . ESTIMATED GFR I S NOT APPLICABLE FOR DIALYSIS PATIEN TS. [employer] Mate ID - [id number] ID - [id number] ID - [id number] ID - [id number] ID - [id number] ID - [id number] ID - [id number] ID - [id number] ID - [id number] ID - [id number] ID - [id number] ID - [id number] ID - [id number] W/PLT COUNT & AUTO [id number] 06:01:00 Test Item Value Reference Range Interpretation Comments WHITE BLOOD CELL COUNT (BEAKER) 10.5 K/ L 4.0-10.0 H (test code = 775) RED BLOOD CELL COUNT (BEAKER) 3.45 M/ L 4.20-5.80 L (test code = 761) HEMOGLOBIN (BEAKER) (test code = 10.7 GM/DL 13.0-16.8 L 410) HEMATOCRIT (BEAKER) (test code = 33.1 % 36.0-50.0 L 411) MEAN CORPUSCULAR VOLUME (BEAKER) 95.9 fL 82.0-99.0 (test code = 753) MEAN CORPUSCULAR HEMOGLOBIN 31.0 pg 27.0-33.0 (BEAKER) (test code = 751) MEAN CORPUSCULAR HEMOGLOBIN CONC 32.3 GM/DL 32.0-36.0 (BEAKER) (test code = 752) RED CELL DISTRIBUTION WIDTH 12.6 % 12.0-15.0 (BEAKER) (test code = 412) PLATELET COUNT (BEAKER) (test 232 K/CU MM 150-430 code = 756) MEAN PLATELET VOLUME (BEAKER) 11.4 fL 6.0-11.5 (test code = 754) NUCLEATED RED BLOOD CELLS 0 /100 WBC 0-0 (BEAKER) (test code = 413) NEUTROPHILS RELATIVE PERCENT 71 % (BEAKER) (test code = 429) LYMPHOCYTES RELATIVE PERCENT 13 % (BEAKER) (test code = 430) MONOCYTES RELATIVE PERCENT 9 % (BEAKER) (test code = 431) EOSINOPHILS RELATIVE PERCENT 3 % (BEAKER) (test code = 432) BASOPHILS RELATIVE PERCENT 1 % (BEAKER) (test code = 437) NEUTROPHILS ABSOLUTE COUNT 7.47 K/ L 1.80-8.00 (BEAKER) (test code = 670) LYMPHOCYTES ABSOLUTE COUNT 1.39 K/ L 1.48-4.50 L (BEAKER) (test code = 414) MONOCYTES ABSOLUTE COUNT (BEAKER) 0.97 K/ L 0.00-1.30 (test code = 415) EOSINOPHILS ABSOLUTE COUNT 0.34 K/ L 0.00-0.50 (BEAKER) (test code = 416) BASOPHILS ABSOLUTE COUNT (BEAKER) 0.06 K/ L 0.00-0.20 (test code = 417) IMMATURE GRANULOCYTES-RELATIVE 2 % 0-0 H PERCENT (BEAKER) (test code = 2801) POCT-GLUCOSE [id number] 21:43:00 Test Item Value Reference Range Interpretation Comments POC-GLUCOSE METER 242 mg/dL 70-110 H : TESTED A T [facility] [address] (BEAKER) (test code [facility] [address], = [address]) [facility] [address]: [employer] Mate/Techni cornelia ID = [id number] for Heidy Barrow HIV-1 Antigen with HIV-1/2 [id number] 18:37:00 Test Item Value Reference Range Interpretation Comments HIV-1 Antigen with HIV Nonreactive Nonreactive 1&2 Antibody (test code = 82347-8) ISSA (test code = ISSA) [employer] Mate ID - [id number] Lab Interpretation (test Normal code = 26946-8) [facility]2 [id number] 18:37:00 Test Item Value Reference Range Interpretation Comments HIV-1 Antigen with HIV Nonreactive Nonreactive 1&2 Antibody (test code = 80260-2) ISSA (test code = ISSA) [employer] Mate ID - [id number] Lab Interpretation (test Normal code = 23660-5) [facility] Ant[facility] with HIV-1/2 [id number] 18:37:00 Test Item Value Reference Range Interpretation Comments HIV-1 Antigen with HIV Nonreactive Nonreactive 1&2 Antibody (test code = 68213-5) ISSA (test code = ISSA) [employer] Mate ID - [id number] Lab Interpretation (test Normal code = 34570-2) [facility] Antigen with HIV-1/2 [id number] 18:37:00 Test Item Value Reference Range Interpretation Comments HIV-1 Antigen with HIV Nonreactive Nonreactive 1&2 Antibody (test code = 57288-5) ISSA (test code = ISSA) [employer] Mate ID - [id number] Lab Interpretation (test Normal code = 95437-1) [facility] Antigen with HIV-1/2 [id number] 18:37:00 Test Item Value Reference Range Interpretation Comments HIV-1 Antigen with HIV Nonreactive Nonreactive 1&2 Antibody (test code = 60228-8) ISSA (test code = ISSA) [employer] Mate ID - [id number] Lab Interpretation (test Normal code = 97224-2) [facility] Antigen with HIV-1/2 [id number] 18:37:00 Test Item Value Reference Range Interpretation Comments HIV-1 Antigen with HIV Nonreactive Nonreactive 1&2 Antibody (test code = 56157-1) ISSA (test code = ISSA) [employer] Mate ID - [id number] Lab Interpretation (test Normal code = 48029-1) [facility] Ant[facility] with HIV-1/2 [id number] 18:37:00 Test Item Value Reference Range Interpretation Comments HIV-1 Antigen with HIV Nonreactive Nonreactive 1&2 Antibody (test code = 26727-8) ISSA (test code = ISSA) [employer] Mate ID - [id number] Lab Interpretation (test Normal code = 38555-3) [facility] ANTIGEN WITH HIV-1/2 [id number] 18:37:00 Test Item Value Reference Range Interpretation Comments HIV-1 ANTIGEN WITH HIV 1\\T\\2 Nonreactive Nonreactive ANTIBODY (2) (BEAKER) (test code = 2586) [employer] ID - [id number] METABOLIC [id number] 17:38:00 Test Item Value Reference Range Interpretation Comments SODIUM (BEAKER) 138 meq/L 135-148 (test code = 381) POTASSIUM (BEAKER) 4.9 meq/L 3.6-5.5 (test code = 379) CHLORIDE (BEAKER) 104 meq/L 98-106 (test code = 382) CO2 (BEAKER) (test 22 meq/L 20-29 code = 355) BLOOD UREA NITROGEN 88 mg/dL 10-26 H (BEAKER) (test code = 354) CREATININE (BEAKER) 4.44 mg/dL 0.50-1.20 H (test code = 358) GLUCOSE RANDOM 256 mg/dL 70-110 H (BEAKER) (test code = 652) CALCIUM (BEAKER) 7.9 mg/dL 8.5-10.5 L (test code = 697) EGFR (BEAKER) (test 14 mL/min/1.73 ESTIMA JOSÉ LUIS GFR IS code = 1092) sq m NOT ACCURATE CREATININE CLEARANCE IN PREDICTING GLOMERULAR FILTRATION RATE . ESTIMATED GFR I S NOT APPLICABLE FOR DIALYSIS PATIEN TS. [employer] ID - [id number] ID - [id number] ID - [id number] ID - [id number] ID - [id number] ID - [id number] ID - [id number] ID - [id number] ID - [id number] ID - [id number] ID - [id number] ID - [id number] ID - [id number] W/PLT COUNT & AUTO [id number] 17:24:00 Test Item Value Reference Range Interpretation Comments WHITE BLOOD CELL COUNT (BEAKER) 10.4 K/ L 4.0-10.0 H (test code = 775) RED BLOOD CELL COUNT (BEAKER) 3.52 M/ L 4.20-5.80 L (test code = 761) HEMOGLOBIN (BEAKER) (test code = 11.1 GM/DL 13.0-16.8 L 410) HEMATOCRIT (BEAKER) (test code = 33.3 % 36.0-50.0 L 411) MEAN CORPUSCULAR VOLUME (BEAKER) 94.6 fL 82.0-99.0 (test code = 753) MEAN CORPUSCULAR HEMOGLOBIN 31.5 pg 27.0-33.0 (BEAKER) (test code = 751) MEAN CORPUSCULAR HEMOGLOBIN CONC 33.3 GM/DL 32.0-36.0 (BEAKER) (test code = 752) RED CELL DISTRIBUTION WIDTH 12.8 % 12.0-15.0 (BEAKER) (test code = 412) PLATELET COUNT (BEAKER) (test 210 K/CU MM 150-430 code = 756) MEAN PLATELET VOLUME (BEAKER) 11.5 fL 6.0-11.5 (test code = 754) NUCLEATED RED BLOOD CELLS 0 /100 WBC 0-0 (BEAKER) (test code = 413) NEUTROPHILS RELATIVE PERCENT 72 % (BEAKER) (test code = 429) LYMPHOCYTES RELATIVE PERCENT 14 % (BEAKER) (test code = 430) MONOCYTES RELATIVE PERCENT 9 % (BEAKER) (test code = 431) EOSINOPHILS RELATIVE PERCENT 3 % (BEAKER) (test code = 432) BASOPHILS RELATIVE PERCENT 1 % (BEAKER) (test code = 437) NEUTROPHILS ABSOLUTE COUNT 7.41 K/ L 1.80-8.00 (BEAKER) (test code = 670) LYMPHOCYTES ABSOLUTE COUNT 1.41 K/ L 1.48-4.50 L (BEAKER) (test code = 414) MONOCYTES ABSOLUTE COUNT (BEAKER) 0.89 K/ L 0.00-1.30 (test code = 415) EOSINOPHILS ABSOLUTE COUNT 0.34 K/ L 0.00-0.50 (BEAKER) (test code = 416) BASOPHILS ABSOLUTE COUNT (BEAKER) 0.08 K/ L 0.00-0.20 (test code = 417) IMMATURE GRANULOCYTES-RELATIVE 2 % 0-0 H PERCENT (BEAKER) (test code = 2801) POCT-GLUCOSE [id number] 16:16:00 Test Item Value Reference Range Interpretation Comments POC-GLUCOSE METER 228 mg/dL 70-110 H : TESTED A T [facility] [address] (BEAKER) (test code [address], = 15[address]) [facility] [address]: [employer] Mate/Techni cornelia ID = [id number] for Tiff Roach WOUND CULTURE + GRAM [id number] 14:46:00 Test Item Value Reference Interpretation Comments Range CULTURE (BEAKER) (test KLEBSIELLA A 1+ Kl ebsiella code = 1095) PNEUMONIAE SSP pneumoniae ss p PNEUMONIAE pneumoniae Amikacin (test code = S 1) Ampicillin + Sulbactam S (test code = 6) Aztreonam (test code = S 32) Cefazolin (test code = S 9) Cefepime (test code = S 51) Cefoxitin (test code = S 68) Ceftazidime (test code S = 27) Ceftriaxone (test code S = 52) Ertapenem (test code = S 38) Gentamicin (test code S = 18) Levofloxacin (test S code = 22) Meropenem (test code = S 34) Nitrofurantoin (test S code = 23) Piperacillin + S Tazobactam (test code = 29) Tetracycline (test S code = 2) Tigecycline (test code S = 133) Tobramycin (test code S = 25) Trimethoprim + S Sulfamethoxazole (test code = 47) CULTURE (BEAKER) (test PSEUDOMONAS A 1+ Ps eudomonas code = 1095) AERUGINOSA aeruginosa Amikacin (test code = S 1) Cefazolin (test code = R 9) Cefepime (test code = S 51) Ceftazidime (test code S = 27) Gentamicin (test code S = 18) Levofloxacin (test S code = 22) Meropenem (test code = S 34) Piperacillin + S Tazobactam (test code = 29) Tigecycline (test code R = 133) Tobramycin (test code S = 25) CULTURE (BEAKER) (test A 2+ Be ta-hemolytic code = 1095) streptococcus group B, by serological grouping GRAM STAIN RESULT No WBCs (BEAKER) (test code = 1123) GRAM STAIN RESULT 4+ Mixed geri (BEAKER) (test code = 233552) 3+ Skin floraPOCT-GLUCOSE [id number] 11:46:00 Test Item Value Reference Range Interpretation Comments POC-GLUCOSE METER 251 mg/dL 70-110 H : TESTED A T [facility] [address] (BEAKER) (test code [facility] [address], = [address]) [facility] [place] [address]: [employer] Mate/Techni cornelia ID = [id number] for Tiff Roach PROTEIN, RANDOM [id number] 11:18:00 Test Item Value Reference Range Interpretation Comments PROTEIN, URINE (BEAKER) (test code 214 mg/dL 0-14 H = 1569) [employer] ID - [id number] ID - [id number], RANDOM [id number] 11:02:00 Test Item Value Reference Range Interpretation Comments CREATININE URINE (BEAKER) (test 129.1 mg/dL code = 375) Reference Range: No NormalsOperator ID - [id number], RANDOM [id number] 11:00:00 Test Item Value Reference Range Interpretation Comments SODIUM URINE (BEAKER) (test code = 20 meq/L 243) Reference Range: No NormalsOperator ID - [id number] 11:00:00 Test Item Value Reference Range Interpretation Comments PHOSPHORUS (BEAKER) (test code = 5.0 mg/dL 2.5-4.5 H 604) [employer] ID - [id number] w/Dlpmkzdvuhf4624-60-58 10:57:00 Test Item Value Reference Range Interpretation Comments Color, UA (test code Yellow = 5778-6) Clarity, UA (test Slightly Cloudy code = 5767-9) Specific [place], UA 1.025 1.001-1.035 (test code = 5811-5) pH, UA (test code = 5.0 5.0-8.0 5803-2) Protein, UA (test 100 mg/dL Negative A code = 49070-1) Glucose, UA (test Negative Negative code = 365) Ketones, UA (test Negative Negative code = 2514-8) Bilirubin, UA (test Negative Negative code = 89716-0) Blood, UA (test code Small Negative A = 19401-1) Nitrite, UA (test Negative Negative code = 5802-4) Leukocytes, UA (test Negative Negative code = 5799-2) Urobilinogen, UA 0.2 mg/dL 0.2-1 (test code = 96256-9) Bacteria, UA (test Occasional code = 08005-0) RBC, UA (test code = 5-10 See_Comment [Autom ated 799-7) message] The system which generated this result transmitted reference range : /HPF. The reference range was not used to interpret this result as normal/abnormal . WBC, UA (test code = <5 See_Comment [Autom ated 77649-9) message] The system which generated this result transmitted reference range : /HPF. The reference range was not used to interpret this result as normal/abnormal . SQUAMOUS EPITHELIAL <5 See_Comment [Automa josé luis (test code = 69816-4) messag e] The system which generated this result transmitted reference range : /HPF. The reference range was not used to interpret this result as normal/abnormal . Specimen Source (test code = 2795) Lab Interpretation Abnormal (test code = 10522-0) [facility]/Orxpslvoulp6980-42-25 10:57:00 Test Item Value Reference Range Interpretation Comments Color, UA (test code Yellow = 5778-6) Clarity, UA (test Slightly Cloudy code = 5767-9) Specific [place], UA 1.025 1.001-1.035 (test code = 5811-5) pH, UA (test code = 5.0 5.0-8.0 5803-2) Protein, UA (test 100 mg/dL Negative A code = 74281-4) Glucose, UA (test Negative Negative code = 365) Ketones, UA (test Negative Negative code = 2514-8) Bilirubin, UA (test Negative Negative code = 02266-5) Blood, UA (test code Small Negative A = 91850-2) Nitrite, UA (test Negative Negative code = 5802-4) Leukocytes, UA (test Negative Negative code = 5799-2) Urobilinogen, UA 0.2 mg/dL 0.2-1 (test code = 21571-4) Bacteria, UA (test Occasional code = 87380-7) RBC, UA (test code = 5-10 See_Comment [Autom ated 799-7) message] The system which generated this result transmitted reference range : /HPF. The reference range was not used to interpret this result as normal/abnormal . WBC, UA (test code = <5 See_Comment [Autom ated 59914-3) message] The system which generated this result transmitted reference range : /HPF. The reference range was not used to interpret this result as normal/abnormal . SQUAMOUS EPITHELIAL <5 See_Comment [Automa josé luis (test code = 95406-5) messag e] The system which generated this result transmitted reference range : /HPF. The reference range was not used to interpret this result as normal/abnormal . Specimen Source (test code = 2795) Lab Interpretation Abnormal (test code = 13159-2) [facility]/Ppmsrzqrcra9172-84-79 10:57:00 Test Item Value Reference Range Interpretation Comments Color, UA (test code Yellow = 5778-6) Clarity, UA (test Slightly Cloudy code = 5767-9) Specific [place], UA 1.025 1.001-1.035 (test code = 5811-5) pH, UA (test code = 5.0 5.0-8.0 5803-2) Protein, UA (test 100 mg/dL Negative A code = 41463-5) Glucose, UA (test Negative Negative code = 365) Ketones, UA (test Negative Negative code = 2514-8) Bilirubin, UA (test Negative Negative code = 32518-1) Blood, UA (test code Small Negative A = 63519-7) Nitrite, UA (test Negative Negative code = 5802-4) Leukocytes, UA (test Negative Negative code = 5799-2) Urobilinogen, UA 0.2 mg/dL 0.2-1 (test code = 32951-0) Bacteria, UA (test Occasional code = 13901-4) RBC, UA (test code = 5-10 See_Comment [Autom ated 799-7) message] The system which generated this result transmitted reference range : /HPF. The reference range was not used to interpret this result as normal/abnormal . WBC, UA (test code = <5 See_Comment [Autom ated 40815-4) message] The system which generated this result transmitted reference range : /HPF. The reference range was not used to interpret this result as normal/abnormal . SQUAMOUS EPITHELIAL <5 See_Comment [Automa josé luis (test code = 87972-0) messag e] The system which generated this result transmitted reference range : /HPF. The reference range was not used to interpret this result as normal/abnormal . Specimen Source (test code = 2795) Lab Interpretation Abnormal (test code = 17932-6) [facility]/Xqkilhpoond0746-69-11 10:57:00 Test Item Value Reference Range Interpretation Comments Color, UA (test code Yellow = 5778-6) Clarity, UA (test Slightly Cloudy code = 5767-9) Specific [place], UA 1.025 1.001-1.035 (test code = 5811-5) pH, UA (test code = 5.0 5.0-8.0 5803-2) Protein, UA (test 100 mg/dL Negative A code = 00341-9) Glucose, UA (test Negative Negative code = 365) Ketones, UA (test Negative Negative code = 2514-8) Bilirubin, UA (test Negative Negative code = 73708-3) Blood, UA (test code Small Negative A = 14018-9) Nitrite, UA (test Negative Negative code = 5802-4) Leukocytes, UA (test Negative Negative code = 5799-2) Urobilinogen, UA 0.2 mg/dL 0.2-1 (test code = 79675-4) Bacteria, UA (test Occasional code = 05867-3) RBC, UA (test code = 5-10 See_Comment [Autom ated 799-7) message] The system which generated this result transmitted reference range : /HPF. The reference range was not used to interpret this result as normal/abnormal . WBC, UA (test code = <5 See_Comment [Autom ated 92188-1) message] The system which generated this result transmitted reference range : /HPF. The reference range was not used to interpret this result as normal/abnormal . SQUAMOUS EPITHELIAL <5 See_Comment [Automa josé luis (test code = 91214-3) messag e] The system which generated this result transmitted reference range : /HPF. The reference range was not used to interpret this result as normal/abnormal . Specimen Source (test code = 2795) Lab Interpretation Abnormal (test code = 63702-9) [facility]/Umswvtfrwsv2270-53-67 10:57:00 Test Item Value Reference Range Interpretation Comments Color, UA (test code Yellow = 5778-6) Clarity, UA (test Slightly Cloudy code = 5767-9) Specific [place], UA 1.025 1.001-1.035 (test code = 5811-5) pH, UA (test code = 5.0 5.0-8.0 5803-2) Protein, UA (test 100 mg/dL Negative A code = 06361-6) Glucose, UA (test Negative Negative code = 365) Ketones, UA (test Negative Negative code = 2514-8) Bilirubin, UA (test Negative Negative code = 00735-6) Blood, UA (test code Small Negative A = 73207-0) Nitrite, UA (test Negative Negative code = 5802-4) Leukocytes, UA (test Negative Negative code = 5799-2) Urobilinogen, UA 0.2 mg/dL 0.2-1.0 (test code = 81656-8) Bacteria, UA (test Occasional code = 98594-0) RBC, UA (test code = 5-10 See_Comment [Autom ated 799-7) message] The system which generated this result transmitted reference range : /HPF. The reference range was not used to interpret this result as normal/abnormal . WBC, UA (test code = <5 See_Comment [Autom ated 72052-8) message] The system which generated this result transmitted reference range : /HPF. The reference range was not used to interpret this result as normal/abnormal . SQUAMOUS EPITHELIAL <5 See_Comment [Automa josé luis (test code = 31055-1) messag e] The system which generated this result transmitted reference range : /HPF. The reference range was not used to interpret this result as normal/abnormal . Specimen Source (test code = 2795) Lab Interpretation Abnormal (test code = 52073-2) [facility]/Yvomwpnyxyt8060-40-79 10:57:00 Test Item Value Reference Range Interpretation Comments Color, UA (test code Yellow = 5778-6) Clarity, UA (test Slightly Cloudy code = 5767-9) Specific [place], UA 1.025 1.001-1.035 (test code = 5811-5) pH, UA (test code = 5.0 5.0-8.0 5803-2) Protein, UA (test 100 mg/dL Negative A code = 67721-8) Glucose, UA (test Negative Negative code = 365) Ketones, UA (test Negative Negative code = 2514-8) Bilirubin, UA (test Negative Negative code = 91822-1) Blood, UA (test code Small Negative A = 61734-3) Nitrite, UA (test Negative Negative code = 5802-4) Leukocytes, UA (test Negative Negative code = 5799-2) Urobilinogen, UA 0.2 mg/dL 0.2-1.0 (test code = 53970-6) Bacteria, UA (test Occasional code = 49216-5) RBC, UA (test code = 5-10 See_Comment [Autom ated 799-7) message] The system which generated this result transmitted reference range : /HPF. The reference range was not used to interpret this result as normal/abnormal . WBC, UA (test code = <5 See_Comment [Autom ated 02918-2) message] The system which generated this result transmitted reference range : /HPF. The reference range was not used to interpret this result as normal/abnormal . SQUAMOUS EPITHELIAL <5 See_Comment [Automa josé luis (test code = 97685-5) messag e] The system which generated this result transmitted reference range : /HPF. The reference range was not used to interpret this result as normal/abnormal . Specimen Source (test code = 2795) Lab Interpretation Abnormal (test code = 77317-6) [id number] 10:57:00 Test Item Value Reference Range Interpretation Comments Color, UA (test code Yellow = 5778-6) Clarity, UA (test Slightly Cloudy code = 5767-9) Specific [place], UA 1.025 1.001-1.035 (test code = 5811-5) pH, UA (test code = 5.0 5.0-8.0 5803-2) Protein, UA (test 100 mg/dL Negative A code = 18380-4) Glucose, UA (test Negative Negative code = 365) Ketones, UA (test Negative Negative code = 2514-8) Bilirubin, UA (test Negative Negative code = 98929-0) Blood, UA (test code Small Negative A = 49335-2) Nitrite, UA (test Negative Negative code = 5802-4) Leukocytes, UA (test Negative Negative code = 5799-2) Urobilinogen, UA 0.2 mg/dL 0.2-1.0 (test code = 55950-6) Bacteria, UA (test Occasional code = 41000-2) RBC, UA (test code = 5-10 See_Comment [Autom ated 799-7) message] The system which generated this result transmitted reference range : /HPF. The reference range was not used to interpret this result as normal/abnormal . WBC, UA (test code = <5 See_Comment [Autom ated 93267-4) message] The system which generated this result transmitted reference range : /HPF. The reference range was not used to interpret this result as normal/abnormal . SQUAMOUS EPITHELIAL <5 See_Comment [Automa josé luis (test code = 81135-6) messag e] The system which generated this result transmitted reference range : /HPF. The reference range was not used to interpret this result as normal/abnormal . Specimen Source (test code = 2795) Lab Interpretation Abnormal (test code = 08752-8) [facility] [id number] 10:57:00 Test Item Value Reference Range Interpretation Comments COLOR (BEAKER) (test code = Yellow 470) CLARITY (BEAKER) (test code = Slightly Cloudy 469) SPECIFIC GRAVITY UA (BEAKER) 1.025 1.001-1.035 (test code = 468) PH UA (BEAKER) (test code = 5.0 5.0-8.0 467) PROTEIN UA (BEAKER) (test 100 mg/dL Negative A code = 464) GLUCOSE UA (BEAKER) (test Negative Negative code = 365) KETONES UA (BEAKER) (test Negative Negative code = 371) BILIRUBIN UA (BEAKER) (test Negative Negative code = 462) BLOOD UA (BEAKER) (test code Small Negative A = 461) NITRITE UA (BEAKER) (test Negative Negative code = 465) LEUKOCYTE ESTERASE UA Negative Negative (BEAKER) (test code = 466) UROBILINOGEN UA (BEAKER) 0.2 mg/dL 0.2-1.0 (test code = 463) BACTERIA (BEAKER) (test code Occasional = 517) RBC UA-MANUAL (BEAKER) (test 5-10 /HPF code = 1659) WBC UA-MANUAL (BEAKER) (test <5 /HPF code = 1661) SQUAMOUS EPITHELIAL MANUAL <5 /HPF (BEAKER) (test code = 1663) SOURCE(BEAKER) (test code = 2795) B-TYPE NATRIURETIC FACTOR (BNP)2020-04-03 10:53:00 Test Item Value Reference Range Interpretation Comments B-TYPE NATRIURETIC PEPTIDE (BEAKER) 315 pg/mL 0-100 H (test code = 700) [employer] ID - [id number], RENAL, [id number] 08:56:00Reason for exam:- >[facility] : 1975 Sex: MFINAL REPORT BILATERAL RENAL ULTRASOUND History provided: Acute renal insufficiency with chronic kidney disease Right kidney measures 13.4 x 4.9 x 5.8 cm, with a cortical width of 1.5 cm. Left kidney measures 11.3 x 5.1 x 4.9 cm, with a cortical width of 1.8 cm. No cystic or solid renal mass. Mildly hyperechogenic renal cortices. No hydronephrosis. Urinary bladder empty. IMPRESSION: No obstructive uropathy. Mildly hyperechogenic kidneys consistent with intrinsic renal disease. Signed: Jerome Ortiz MDReport Verified Date/Time: 04/03/2020 08:56:12 Reading Location: [facility] Radiology Reading Room CT, EXTREMITY, LOWER WITHOUT CONTRAST, [id number] 08:50:00Unlisted Reason for Exam - Click Yes and Enter Reason Below->YesL Foot woundUnlisted Reason for Exam->L Foot infection to r/o osteomyelitisPlease specify:->Foot [facility] : 1975 Sex: MFINAL REPORT CT of the left foot without contrast History: Lower leg pain, osteomyelitis suspected, initial examL Foot infection to r/o osteomyelitis Comparisons: Radiograph dated March 30, 2020 Technique: CT of the left foot was performed without contrast. Axial images were generated as were multiplanar reformatted images in the coronal and sagittal planes. This exam was performed according to our departmental dose optimization program which includes automated exposure control, adjustment of the mA and/or kV according to patient's size and/or use of iterative reconstructive technique. Findings: There is dorsal subcutaneous edema in the left foot and distal leftleg. Focal soft tissue thickening with superficial ulceration is also noted at the lateral aspect ofthe fifth toe. Shallow ulcerations are also noted at the plantar aspect of the forefoot with a punctate focus of subcutaneous gas. No definite drainable collection is identified on this noncontrast exam. The extensor flexor tendons appear intact, no evidence of tenosynovitis. No bony erosion is identified. No evidence of acute fracture, or dislocation. There is made of an os trigonum. There is no significant joint effusion. IMPRESSION: Subcutaneous edema of the left distal leg, and foot, no discretedrainable collection is identified on this noncontrast exam. Focal soft tissue thickening and shallow ulceration is noted lateral to the fifth toe. There are also shallow ulcerations at the plantar aspe ct of the forefoot, with a punctate focus of subcutaneous gas. No CT evidence of osteomyelitis. If there is persistent clinical concern, consider MRI correlation. Signed: Lacie Gonzales MDReport Verified Date/Time: 04/03/2020 08:50:03 Reading Location: [facility] C013X Ortho Consult Reading Room CT lower extremity without IV contrast [id number] 08:50:00Interface, External Ris In - 04/03/2020 8:[address] of the left foot without contrast History: Lower leg pain, osteomyelitis suspected, initial examL Foot infection to r/o osteomyelitis Comparisons: Radiograph dated March 30, 2020 Technique: CT of the left footwas performed without contrast. Axial images were generated as were multiplanar reformatted images in the coronal and sagittal planes. This exam was performed according to our departmental dose optimization program which includes automated exposure control, adjustment of the mA and/or kV according to patient's size and/or use of iterative reconstructive technique. Findings: There is dorsal subcutaneous edema in the left foot and distal left leg. Focal soft tissue thickening with superficial ulceration is also noted at the lateral aspect of the fifth toe. Shallow ulcerations are also noted at the plantar aspect of the forefoot with a punctate focus of subcutaneous gas. No definite drainable collection is identified on this noncontrast exam. The extensor flexor tendons appear intact, no evidence oftenosynovitis. No bony erosion is identified. No evidence of acute fracture, or dislocation. There is made of an os trigonum. There is no significant joint effusion. IMPRESSION: Subcutaneous edema of the left distal leg, and foot, no discrete drainable collection is identified on this noncontrast exam. Focal soft tissue thickening and shallow ulceration is noted lateral to the fifth toe. There are also shallow ulcerations at the plantar aspect of the forefoot, with a punctate focus of subcutaneous ga s. No CT evidence of osteomyelitis. If there is persistent clinical concern, consider MRI correlation. Signed: Lacie Gonzales Verified Date/Time: 04/03/2020 08:50:03 Reading Location: [facility] B1 C013X [facility] [id number] 08:50:00 Interface, External Ris In - 04/03/2020 8:[address] of the left foot without contrast History: Lower leg pain, osteomyelitis suspected, initial examL Foot infection to r/o osteomyelitis Comparisons: Radiograph dated March 30, 2020 Technique: CT of the left footwas performed without contrast. Axial images were generated as were multiplanar reformatted images in the coronal and sagittal planes. This exam was performed according to our departmental dose optimization program which includes automated exposure control, adjustment of the mA and/or kV according to patient's size and/or use of iterative reconstructive technique. Findings: There is dorsal subcutaneous edema in the left foot and distal left leg. Focal soft tissue thickening with superficial ulceration is also noted at the lateral aspect of the fifth toe. Shallow ulcerations are also noted at the plantar aspect of the forefoot with a punctate focus of subcutaneous gas. No definite drainable collection is identified on this noncontrast exam. The extensor flexor tendons appear intact, no evidence oftenosynovitis. No bony erosion is identified. No evidence of acute fracture, or dislocation. There is made of an os trigonum. There is no significant joint effusion. IMPRESSION: Subcutaneous edema of the left distal leg, and foot, no discrete drainable collection is identified on this noncontrast exam. Focal soft tissue thickening and shallow ulceration is noted lateral to the fifth toe. There are also shallow ulcerations at the plantar aspect of the forefoot, with a punctate focus of subcutaneous gas. No CT evidence of osteomyelitis. If there is persistent clinical concern, consider MRI correlation. Signed: Lacie Gonzales Verified Date/Time: 04/03/2020 08:50:03 Reading Location: [facility] C013X [facility] contrast [id number] 08:50:00Interface, External Ris In - 04/03/2020 8:[address] of the left foot without contrast History: Lower leg pain, osteomyelitis suspected, initial examL Foot infection to r/o osteomyelitis Comparisons: Radiograph dated March 30, 2020 Technique: CT of the left footwas performed without contrast. Axial images were generated as were multiplanar reformatted images in the coronal and sagittal planes. This exam was performed according to our departmental dose optimization program which includes automated exposure control, adjustment of the mA and/or kV according to patient's size and/or use of iterative reconstructive technique. Findings: There is dorsal subcutaneous edema in the left foot and distal left leg. Focal soft tissue thickening with superficial ulceration is also noted at the lateral aspect of the fifth toe. Shallow ulcerations are also noted at the plantar aspect of the forefoot with a punctate focus of subcutaneous gas. No definite drainable collection is identified on this noncontrast exam. The extensor flexor tendons appear intact, no evidence oftenosynovitis. No bony erosion is identified. No evidence of acute fracture, or dislocation. There is made of an os trigonum. There is no significant joint effusion. IMPRESSION: Subcutaneous edema of the left distal leg, and foot, no discrete drainable collection is identified on this noncontrast exam. Focal soft tissue thickening and shallow ulceration is noted lateral to the fifth toe. There are also shallow ulcerations at the plantar aspect of the forefoot, with a punctate focus of subcutaneous gas. No CT evidence of osteomyelitis. If there is persistent clinical concern, consider MRI correlation. Signed: Lacie Gonzales MDReport Verified Date/Time: 04/03/2020 08:50:03 Reading Location: [address] [facility] IV contrast [id number] 08:50:00Interface, External Ris In - 04/03/2020 8:[address] of the left foot without contrast History: Lower leg pain, osteomyelitis suspected, initial examL Foot infection to r/o osteomyelitis Comparisons: Radiograph dated March 30, 2020 Technique: CT of the left footwas performed without contrast. Axial images were generated as were multiplanar reformatted images in the coronal and sagittal planes. This exam was performed according to our departmental dose optimization program which includes automated exposure control, adjustment of the mA and/or kV according to patient's size and/or use of iterative reconstructive technique. Findings: There is dorsal subcutaneous edema in the left foot and distal left leg. Focal soft tissue thickening with superficial ulceration is also noted at the lateral aspect of the fifth toe. Shallow ulcerations are also noted at the plantar aspect of the forefoot with a punctate focus of subcutaneous gas. No definite drainable collection is identified on this noncontrast exam. The extensor flexor tendons appear intact, no evidence oftenosynovitis. No bony erosion is identified. No evidence of acute fracture, or dislocation. There is made of an os trigonum. There is no significant joint effusion. IMPRESSION: Subcutaneous edema of the left distal leg, and foot, no discrete drainable collection is identified on this noncontrast exam. Focal soft tissue thickening and shallow ulceration is noted lateral to the fifth toe. There are also shallow ulcerations at the plantar aspect of the forefoot, with a punctate focus of subcutaneous gas. No CT evidence of osteomyelitis. If there is persistent clinical concern, consider MRI correlation. Signed: Lacie Gonzales Verified Date/Time: 04/03/2020 08:50:03 Reading Location: [address] Ortho Consult [facility] [place] POCT-GLUCOSE [id number] 07:39:00 Test Item Value Reference Range Interpretation Comments POC-GLUCOSE METER 178 mg/dL 70-110 H : TESTED A T SLSL 1317 (BEAKER) (test code [address], = 1538) [facility] 77 478: Bo[employer] Mate/Techni cornelia ID = [id number] for Tiff Roach BASIC METABOLIC [id number] 06:16:00 Test Item Value Reference Range Interpretation Comments SODIUM (BEAKER) 138 meq/L 135-148 (test code = 381) POTASSIUM (BEAKER) 4.7 meq/L 3.6-5.5 (test code = 379) CHLORIDE (BEAKER) 104 meq/L 98-106 (test code = 382) CO2 (BEAKER) (test 20 meq/L 20-29 code = 355) BLOOD UREA NITROGEN 84 mg/dL 10-26 H (BEAKER) (test code = 354) CREATININE (BEAKER) 4.34 mg/dL 0.50-1.20 H (test code = 358) GLUCOSE RANDOM 186 mg/dL 70-110 H (BEAKER) (test code = 652) CALCIUM (BEAKER) 7.9 mg/dL 8.5-10.5 L (test code = 697) EGFR (BEAKER) (test 15 mL/min/1.73 ESTIMA JOSÉ LUIS GFR IS code = 1092) sq m NOT ACCURATE CREATININE CLEARANCE IN PREDICTING GLOMERULAR FILTRATION RATE . ESTIMATED GFR I S NOT APPLICABLE FOR DIALYSIS PATIEN TS. [employer] ID - LITOOperator ID - LITOOperator ID - LITOOperator ID - LITOOperator ID - LITOOperator ID - LITOOperator ID - LITOOperator ID - LITOOperator ID - LITOOperator ID - LITOOperator ID - LITOOperator ID - LITOOperator ID - LITOCBC (Hemogram only)2020-04-03 05:47:00 Test Item Value Reference Range Interpretation Comments WBC (test code = 6690-2) 8.9 See_Comment [A utomated message] The system HipChat generated this result transmitted ref erence range: 4.0 - 10 .0 K/L. The refe rence range was not u sed to interpret this result as normal/abnor mal. RBC (test code = 789-8) 3.59 See_Comment L [Au tomated message] The system HipChat generated this result transmitted ref erence range: 4.20 - 5 .80 M/L. The refe rence range was not u sed to interpret this result as normal/abnor mal. MCHC (test code = 786-4) 32.4 See_Comment L [A utomated message] The system HipChat generated this result transmitted ref erence range: 32.0 - 3 6.0 GM/DL. The refe rence range was not u sed to interpret this result as normal/abnor mal. Hematocrit (test code = 34.3 % 36-50 L 4544-3) MCV (test code = 787-2) 95.5 fL 82-99 MCH (test code = 785-6) 30.9 pg 27-33 RDW (test code = 788-0) 12.7 % 12-15 Platelets (test code = 215 See_Comment [Aut omated message] 777-3) The system HipChat generated this result transmitted ref erence range: 150 - 43 0 K/CU MM. The referen ce range was not u sed to interpret this result as normal/abnor mal. MPV (test code = 11.7 fL 6-11.5 H 29780-3) nRBC (test code = 413) 0 See_Comment [Aut omated message] The system HipChat generated this result transmitted ref erence range: 0 - 0 /1 00 WBC. The refere nce range was not u sed to interpret this result as normal/abnor mal. Lab Interpretation (test Abnormal code = 14123-7) [facility]2020-04-03 05:47:00 Test Item Value Reference Range Interpretation Comments WBC (test code = 6690-2) 8.9 See_Comment [A utomated message] The system HipChat generated this result transmitted ref erence range: 4.0 - 10 .0 K/L. The refe rence range was not u sed to interpret this result as normal/abnor mal. RBC (test code = 789-8) 3.59 See_Comment L [Au tomated message] The system HipChat generated this result transmitted ref erence range: 4.20 - 5 .80 M/L. The refe rence range was not u sed to interpret this result as normal/abnor mal. MCHC (test code = 786-4) 32.4 See_Comment L [A utomated message] The system HipChat generated this result transmitted ref erence range: 32.0 - 3 6.0 GM/DL. The refe rence range was not u sed to interpret this result as normal/abnor mal. Hematocrit (test code = 34.3 % 36-50 L 4544-3) MCV (test code = 787-2) 95.5 fL 82-99 MCH (test code = 785-6) 30.9 pg 27-33 RDW (test code = 788-0) 12.7 % 12-15 Platelets (test code = 215 See_Comment [Aut omated message] 777-3) The system HipChat generated this result transmitted ref erence range: 150 - 43 0 K/CU MM. The referen ce range was not u sed to interpret this result as normal/abnor mal. MPV (test code = 11.7 fL 6-11.5 H 26151-1) nRBC (test code = 413) 0 See_Comment [Aut omated message] The system HipChat generated this result transmitted ref erence range: 0 - 0 /1 00 WBC. The refere nce range was not u sed to interpret this result as normal/abnor mal. Lab Interpretation (test Abnormal code = 00695-8) [facility]2020-04-03 05:47:00 Test Item Value Reference Range Interpretation Comments WBC (test code = 6690-2) 8.9 See_Comment [A utomated message] The system HipChat generated this result transmitted ref erence range: 4.0 - 10 .0 K/L. The refe rence range was not u sed to interpret this result as normal/abnor mal. RBC (test code = 789-8) 3.59 See_Comment L [Au tomated message] The system HipChat generated this result transmitted ref erence range: 4.20 - 5 .80 M/L. The refe rence range was not u sed to interpret this result as normal/abnor mal. MCHC (test code = 786-4) 32.4 See_Comment L [A utomated message] The system HipChat generated this result transmitted ref erence range: 32.0 - 3 6.0 GM/DL. The refe rence range was not u sed to interpret this result as normal/abnor mal. Hematocrit (test code = 34.3 % 36-50 L 4544-3) MCV (test code = 787-2) 95.5 fL 82-99 MCH (test code = 785-6) 30.9 pg 27-33 RDW (test code = 788-0) 12.7 % 12-15 Platelets (test code = 215 See_Comment [Aut omated message] 777-3) The system HipChat generated this result transmitted ref erence range: 150 - 43 0 K/CU MM. The referen ce range was not u sed to interpret this result as normal/abnor mal. MPV (test code = 11.7 fL 6-11.5 H 51187-7) nRBC (test code = 413) 0 See_Comment [Aut omated message] The system HipChat generated this result transmitted ref erence range: 0 - 0 /1 00 WBC. The refere nce range was not u sed to interpret this result as normal/abnor mal. Lab Interpretation (test Abnormal code = 62121-5) [facility]2020-04-03 05:47:00 Test Item Value Reference Range Interpretation Comments WBC (test code = 6690-2) 8.9 See_Comment [A utomated message] The system HipChat generated this result transmitted ref erence range: 4.0 - 10 .0 K/L. The refe rence range was not u sed to interpret this result as normal/abnor mal. RBC (test code = 789-8) 3.59 See_Comment L [Au tomated message] The system HipChat generated this result transmitted ref erence range: 4.20 - 5 .80 M/L. The refe rence range was not u sed to interpret this result as normal/abnor mal. MCHC (test code = 786-4) 32.4 See_Comment L [A utomated message] The system HipChat generated this result transmitted ref erence range: 32.0 - 3 6.0 GM/DL. The refe rence range was not u sed to interpret this result as normal/abnor mal. Hematocrit (test code = 34.3 % 36-50 L 4544-3) MCV (test code = 787-2) 95.5 fL 82-99 MCH (test code = 785-6) 30.9 pg 27-33 RDW (test code = 788-0) 12.7 % 12-15 Platelets (test code = 215 See_Comment [Aut omated message] 777-3) The system HipChat generated this result transmitted ref erence range: 150 - 43 0 K/CU MM. The referen ce range was not u sed to interpret this result as normal/abnor mal. MPV (test code = 11.7 fL 6-11.5 H 24094-9) nRBC (test code = 413) 0 See_Comment [Aut omated message] The system HipChat generated this result transmitted ref erence range: 0 - 0 /1 00 WBC. The refere nce range was not u sed to interpret this result as normal/abnor mal. Lab Interpretation (test Abnormal code = 69142-7) [facility] (Hemogram only)2020-04-03 05:47:00 Test Item Value Reference Range Interpretation Comments WBC (test code = 6690-2) 8.9 See_Comment [A utomated message] The system HipChat generated this result transmitted ref erence range: 4.0 - 10 .0 K/L. The refe rence range was not u sed to interpret this result as normal/abnor mal. RBC (test code = 789-8) 3.59 See_Comment L [Au tomated message] The system HipChat generated this result transmitted ref erence range: 4.20 - 5 .80 M/L. The refe rence range was not u sed to interpret this result as normal/abnor mal. MCHC (test code = 786-4) 32.4 See_Comment L [A utomated message] The system HipChat generated this result transmitted ref erence range: 32.0 - 3 6.0 GM/DL. The refe rence range was not u sed to interpret this result as normal/abnor mal. Hematocrit (test code = 34.3 % 36.0-50.0 L 4544-3) MCV (test code = 787-2) 95.5 fL 82.0-99.0 MCH (test code = 785-6) 30.9 pg 27.0-33.0 RDW (test code = 788-0) 12.7 % 12.0-15.0 Platelets (test code = 215 See_Comment [Aut omated message] 777-3) The system HipChat generated this result transmitted ref erence range: 150 - 43 0 K/CU MM. The referen ce range was not u sed to interpret this result as normal/abnor mal. MPV (test code = 11.7 fL 6.0-11.5 H 23921-8) nRBC (test code = 413) 0 See_Comment [Aut omated message] The system [employer] generated this result transmitted ref erence range: 0 - 0 /1 00 WBC. The refere nce range was not u sed to interpret this result as normal/abnor mal. Lab Interpretation (test Abnormal code = 89493-0) [facility] (Hemogram only)2020-04-03 05:47:00 Test Item Value Reference Range Interpretation Comments WBC (test code = 6690-2) 8.9 See_Comment [A utomated message] The system HipChat generated this result transmitted ref erence range: 4.0 - 10 .0 K/L. The refe rence range was not u sed to interpret this result as normal/abnor mal. RBC (test code = 789-8) 3.59 See_Comment L [Au tomated message] The system [employer] generated this result transmitted ref erence range: 4.20 - 5 .80 M/L. The refe rence range was not u sed to interpret this result as normal/abnor mal. MCHC (test code = 786-4) 32.4 See_Comment L [A utomated message] The system [employer] generated this result transmitted ref erence range: 32.0 - 3 6.0 GM/DL. The refe rence range was not u sed to interpret this result as normal/abnor mal. Hematocrit (test code = 34.3 % 36.0-50.0 L 4544-3) MCV (test code = 787-2) 95.5 fL 82.0-99.0 MCH (test code = 785-6) 30.9 pg 27.0-33.0 RDW (test code = 788-0) 12.7 % 12.0-15.0 Platelets (test code = 215 See_Comment [Aut omated message] 777-3) The system HipChat generated this result transmitted ref erence range: 150 - 43 0 K/CU MM. The referen ce range was not u sed to interpret this result as normal/abnor mal. MPV (test code = 11.7 fL 6.0-11.5 H 83869-3) nRBC (test code = 413) 0 See_Comment [Aut omated message] The system [employer] generated this result transmitted ref erence range: 0 - 0 /1 00 WBC. The refere nce range was not u sed to interpret this result as normal/abnor mal. Lab Interpretation (test Abnormal code = 92117-4) [facility] (Hemogram only)2020-04-03 05:47:00 Test Item Value Reference Range Interpretation Comments WBC (test code = 6690-2) 8.9 See_Comment [A utomated message] The system [employer] generated this result transmitted ref erence range: 4.0 - 10 .0 K/L. The refe rence range was not u sed to interpret this result as normal/abnor mal. RBC (test code = 789-8) 3.59 See_Comment L [Au tomated message] The system HipChat generated this result transmitted ref erence range: 4.20 - 5 .80 M/L. The refe rence range was not u sed to interpret this result as normal/abnor mal. MCHC (test code = 786-4) 32.4 See_Comment L [A utomated message] The system [employer] generated this result transmitted ref erence range: 32.0 - 3 6.0 GM/DL. The refe rence range was not u sed to interpret this result as normal/abnor mal. Hematocrit (test code = 34.3 % 36.0-50.0 L 4544-3) MCV (test code = 787-2) 95.5 fL 82.0-99.0 MCH (test code = 785-6) 30.9 pg 27.0-33.0 RDW (test code = 788-0) 12.7 % 12.0-15.0 Platelets (test code = 215 See_Comment [Aut omated message] 317-3) The system [employer] generated this result transmitted ref erence range: 150 - 43 0 K/CU MM. The referen ce range was not u sed to interpret this result as normal/abnor mal. MPV (test code = 11.7 fL 6.0-11.5 H 49053-3) nRBC (test code = 413) 0 See_Comment [Aut omated message] The system [employer]Chat generated this result transmitted ref erence range: 0 - 0 /1 00 WBC. The refere nce range was not u sed to interpret this result as normal/abnor mal. Lab Interpretation (test Abnormal code = 90423-2) [facility] (HEMOGRAM ONLY)2020-04-03 05:47:00 Test Item Value Reference Range Interpretation Comments WHITE BLOOD CELL COUNT (BEAKER) 8.9 K/ L 4.0-10.0 (test code = 775) RED BLOOD CELL COUNT (BEAKER) 3.59 M/ L 4.20-5.80 L (test code = 761) HEMOGLOBIN (BEAKER) (test code = 11.1 GM/DL 13.0-16.8 L 410) HEMATOCRIT (BEAKER) (test code = 34.3 % 36.0-50.0 L 411) MEAN CORPUSCULAR VOLUME (BEAKER) 95.5 fL 82.0-99.0 (test code = 753) MEAN CORPUSCULAR HEMOGLOBIN 30.9 pg 27.0-33.0 (BEAKER) (test code = 751) MEAN CORPUSCULAR HEMOGLOBIN CONC 32.4 GM/DL 32.0-36.0 (BEAKER) (test code = 752) RED CELL DISTRIBUTION WIDTH 12.7 % 12.0-15.0 (BEAKER) (test code = 412) PLATELET COUNT (BEAKER) (test 215 K/CU MM 150-430 code = 756) MEAN PLATELET VOLUME (BEAKER) 11.7 fL 6.0-11.5 H (test code = 754) NUCLEATED RED BLOOD CELLS 0 /100 WBC 0-0 (BEAKER) (test code = 413) VANCOMYCIN LEVEL, [id number] 22:37:00 Test Item Value Reference Range Interpretation Comments VANCOMYCIN TROUGH (BEAKER) (test 18.7 ug/mL 10.0-20.0 code = 522) [employer] ID - JUSTINPOCT-GLUCOSE [id number] 21:28:00 Test Item Value Reference Range Interpretation Comments POC-GLUCOSE METER 234 mg/dL 70-110 H : TESTED A T [address] (BEAKER) (test code [address], = 1538) [place] [address]: [employer] Mate/Techni cornelia ID = [id number] for Heidy Barrow POCT-GLUCOSE [id number] 16:03:00 Test Item Value Reference Range Interpretation Comments POC-GLUCOSE METER 262 mg/dL 70-110 H : TESTED A T [address] (BEAKER) (test code [address], = 1538) [place] [address]: [employer] Mate/Techni cornelia ID = [id number] for Brandon alejandra, Jesi POCT-GLUCOSE [id number] 11:56:00 Test Item Value Reference Range Interpretation Comments POC-GLUCOSE METER 190 mg/dL 70-110 H : TESTED A T [address] (BEAKER) [address] [address] [address] = [address]) [place] [address]: [employer] Mate/Techni cornelia ID = [id number] for Buff ord, Jesi BASIC METABOLIC [id number] 06:58:00 Test Item Value Reference Range Interpretation Comments SODIUM (BEAKER) 136 meq/L 135-148 (test code = 381) POTASSIUM (BEAKER) 5.4 meq/L 3.6-5.5 Specimen slightly (test code = 379) hemolyzed CHLORIDE (BEAKER) 105 meq/L 98-106 (test code = 382) CO2 (BEAKER) (test 21 meq/L 20-29 code = 355) BLOOD UREA NITROGEN 78 mg/dL 10-26 H (BEAKER) (test code = 354) CREATININE (BEAKER) 3.07 mg/dL 0.50-1.20 H Specimen slightly (test code = 358) hemolyzed GLUCOSE RANDOM 201 mg/dL 70-110 H (BEAKER) (test code = 652) CALCIUM (BEAKER) 7.9 mg/dL 8.5-10.5 L (test code = 697) EGFR (BEAKER) (test 22 mL/min/1.73 ESTIMA JOSÉ LUIS GFR IS code = 1092) sq m NOT ACCURATE CREATININE CLEARANCE IN PREDICTING GLOMERULAR FILTRATION RATE . ESTIMATED GFR I S NOT APPLICABLE FOR DIALYSIS PATIEN TS. [employer] ID - [id number] ID - [id number] ID - rdtv55Ocbavski ID - qhcb52Qvlvjxfa ID - abvw81Vhwrocze ID - uqww70Hdihjqwx ID - yelz81Tfwltoop ID - vfpl40Lnbgkeef ID - hmtd07Cpniysvf ID - rmmx45Taanyjxg ID - eham65Mgnweaym ID - tudu59Ndppiitz ID - [id number] (HEMOGRAM ONLY)2020-04-02 06:43:00 Test Item Value Reference Range Interpretation Comments WHITE BLOOD CELL COUNT (BEAKER) 8.2 K/ L 4.0-10.0 (test code = 775) RED BLOOD CELL COUNT (BEAKER) 3.73 M/ L 4.20-5.80 L (test code = 761) HEMOGLOBIN (BEAKER) (test code = 11.8 GM/DL 13.0-16.8 L 410) HEMATOCRIT (BEAKER) (test code = 35.7 % 36.0-50.0 L 411) MEAN CORPUSCULAR VOLUME (BEAKER) 95.7 fL 82.0-99.0 (test code = 753) MEAN CORPUSCULAR HEMOGLOBIN 31.6 pg 27.0-33.0 (BEAKER) (test code = 751) MEAN CORPUSCULAR HEMOGLOBIN CONC 33.1 GM/DL 32.0-36.0 (BEAKER) (test code = 752) RED CELL DISTRIBUTION WIDTH 12.8 % 12.0-15.0 (BEAKER) (test code = 412) PLATELET COUNT (BEAKER) (test 192 K/CU MM 150-430 code = 756) MEAN PLATELET VOLUME (BEAKER) 11.9 fL 6.0-11.5 H (test code = 754) NUCLEATED RED BLOOD CELLS 0 /100 WBC 0-0 (BEAKER) (test code = 413) POCT-GLUCOSE [id number] 16:21:00 Test Item Value Reference Range Interpretation Comments POC-GLUCOSE METER 262 mg/dL 70-110 H : TESTED A T [address] (BEAKER) (test code [facility] [address], = 1538) [place] [address]: [employer] Mate/Techni cornelia ID = [id number] for Brandon alejandra Jesi POCT-GLUCOSE [id number] 13:00:00 Test Item Value Reference Range Interpretation Comments POC-GLUCOSE METER 256 mg/dL 70-110 H : TESTED A T [address] (BEAKER) (test code [address], = 1538) [place] [address]: [employer] Mate/Techni cornelia ID = [id number] for Palm er, Ealine POCT-GLUCOSE [id number] 11:49:00 Test Item Value Reference Range Interpretation Comments POC-GLUCOSE METER 255 mg/dL 70-110 H : TESTED A T [address] (BEAKER) (test code [address], = 1538) [place] [address]: [employer] Mate/Techni cornelia ID = [id number] for Karina Curtis POCT-GLUCOSE [id number] 07:53:00 Test Item Value Reference Range Interpretation Comments POC-GLUCOSE METER 296 mg/dL 70-110 H : TESTED A T [address] (BEAKER) (test code [address], = 1538) [place] [address]: [employer] Mate/Techni cornelia ID = [id number] for Buff justyn, Jesi BASIC METABOLIC [id number] 06:06:00 Test Item Value Reference Range Interpretation Comments SODIUM (BEAKER) 138 meq/L 135-148 (test code = 381) POTASSIUM (BEAKER) 4.6 meq/L 3.6-5.5 (test code = 379) CHLORIDE (BEAKER) 103 meq/L 98-106 (test code = 382) CO2 (BEAKER) (test 22 meq/L 20-29 code = 355) BLOOD UREA NITROGEN 84 mg/dL 10-26 H (BEAKER) (test code = 354) CREATININE (BEAKER) 2.88 mg/dL 0.50-1.20 H (test code = 358) GLUCOSE RANDOM 294 mg/dL 70-110 H (BEAKER) (test code = 652) CALCIUM (BEAKER) 8.1 mg/dL 8.5-10.5 L (test code = 697) EGFR (BEAKER) (test 24 mL/min/1.73 ESTIMA JOSÉ LUIS GFR IS code = 1092) sq m NOT ACCURATE CREATININE CLEARANCE IN PREDICTING GLOMERULAR FILTRATION RATE . ESTIMATED GFR I S NOT APPLICABLE FOR DIALYSIS PATIEN TS. [employer] ID - ANSBERTOGOperator ID - ANSBERTOGOperator ID - ANSBERTOGOperator ID - ANSBERTOGOperatorID - ANSBERTOGOperator ID - ANSBERTOGOperator ID - ANSBERTOGOperator ID - ANSBERTOGOperator ID - ANSBERTOGOperator ID - ANSBERTOGOperator ID - ANSBERTOGOperator ID - ANSBERTOGOperator ID - ANSBERTOG POCT-GLUCOSE [id number] 20:54:00 Test Item Value Reference Range Interpretation Comments POC-GLUCOSE METER 252 mg/dL 70-110 H : TESTED A T [address] (BEAKER) (test code [address], = 1538) [place] [address]: [employer] Mate/Techni cornelia ID = [id number] for gordon Whitehead POCT-GLUCOSE [id number] 15:59:00 Test Item Value Reference Range Interpretation Comments POC-GLUCOSE METER 335 mg/dL 70-110 H : TESTED A T [address] (BEAKER) (test code [address], = 1538) [place] [address]: [employer] Mate/Techni cornelia ID = [id number] for Tiff Roach POCT-GLUCOSE [id number] 15:24:00 Test Item Value Reference Range Interpretation Comments POC-GLUCOSE METER 356 mg/dL 70-110 H : TESTED A T [address] (BEAKER) (test code [address], = 1538) [place] [address]: [employer] Mate/Techni cornelia ID = [id number] for Tiff Roach POCT-GLUCOSE [id number] 07:46:00 Test Item Value Reference Range Interpretation Comments POC-GLUCOSE METER 281 mg/dL 70-110 H : TESTED A T [address] (BEAKER) (test code [address], = 1538) [place] [address]: [employer] Mate/Techni cornelia ID = [id number] for Tim rodriguez Tiff Hemoglobin [id number] 06:09:00 Test Item Value Reference Range Interpretation Comments Hemoglobin A1C (test code 12.3 % 4.3-6.1 H = 4548-4) ISSA (test code = ISSA) [employer] ID - JBERN Lab Interpretation (test Abnormal code = 59065-0) [id number] Test Item Value Reference Range Interpretation Comments Hemoglobin A1C (test code 12.3 % 4.3-6.1 H = 4548-4) ISSA (test code = ISSA) [employer] ID - JBERN Lab Interpretation (test Abnormal code = 52060-2) [facility] [id number] 06:09:00 Test Item Value Reference Range Interpretation Comments Hemoglobin A1C (test code 12.3 % 4.3-6.1 H = 4548-4) ISSA (test code = ISSA) [employer] ID - JBERN Lab Interpretation (test Abnormal code = 83702-2) [facility] [id number] 06:09:00 Test Item Value Reference Range Interpretation Comments Hemoglobin A1C (test code 12.3 % 4.3-6.1 H = 4548-4) ISSA (test code = ISSA) [employer] ID - JBERN Lab Interpretation (test Abnormal code = 36407-2) [facility] [id number] 06:09:00 Test Item Value Reference Range Interpretation Comments Hemoglobin A1C (test code 12.3 % 4.3-6.1 H = 4548-4) ISSA (test code = ISSA) [employer] ID - JBERN Lab Interpretation (test Abnormal code = 02036-8) [facility] [id number] 06:09:00 Test Item Value Reference Range Interpretation Comments Hemoglobin A1C (test code 12.3 % 4.3-6.1 H = 4548-4) ISSA (test code = ISSA) [employer] ID - JBERN Lab Interpretation (test Abnormal code = 63551-6) [facility] [id number] 06:09:00 Test Item Value Reference Range Interpretation Comments Hemoglobin A1C (test code 12.3 % 4.3-6.1 H = 4548-4) ISSA (test code = ISSA) [employer] Mate ID - JBERN Lab Interpretation (test Abnormal code = 21888-7) [facility] [id number] 06:09:00 Test Item Value Reference Range Interpretation Comments HEMOGLOBIN A1C (BEAKER) (test code = 12.3 % 4.3-6.1 H 368) [employer] ID - JBERNBASIC METABOLIC [id number] 06:04:00 Test Item Value Reference Range Interpretation Comments SODIUM (BEAKER) 134 meq/L 135-148 L (test code = 381) POTASSIUM (BEAKER) 4.0 meq/L 3.6-5.5 (test code = 379) CHLORIDE (BEAKER) 102 meq/L 98-106 (test code = 382) CO2 (BEAKER) (test 20 meq/L 20-29 code = 355) BLOOD UREA NITROGEN 88 mg/dL 10-26 H (BEAKER) (test code = 354) CREATININE (BEAKER) 3.17 mg/dL 0.50-1.20 H (test code = 358) GLUCOSE RANDOM 290 mg/dL 70-110 H (BEAKER) (test code = 652) CALCIUM (BEAKER) 7.7 mg/dL 8.5-10.5 L (test code = 697) EGFR (BEAKER) (test 21 mL/min/1.73 ESTIMA JOSÉ LUIS GFR IS code = 1092) sq m NOT ACCURATE CREATININE CLEARANCE IN PREDICTING GLOMERULAR FILTRATION RATE . ESTIMATED GFR I S NOT APPLICABLE FOR DIALYSIS PATIEN TS. [employer] ID - ANSBERTOGOperator ID - ANSBERTOGOperator ID - ANSBERTOGOperator ID - ANSBERTOGOperatorID - ANSBERTOGOperator ID - ANSBERTOGOperator ID - ANSBERTOGOperator ID - ANSBERTOGOperator ID - ANSBERTOGOperator ID - ANSBERTOGOperator ID - ANSBERTOGOperator ID - ANSBERTOGOperator ID - ANSBERTOG CBC W/PLT COUNT & AUTO [id number] 05:38:00 Test Item Value Reference Range Interpretation Comments WHITE BLOOD CELL COUNT (BEAKER) 8.0 K/ L 4.0-10.0 (test code = 775) RED BLOOD CELL COUNT (BEAKER) 4.03 M/ L 4.20-5.80 L (test code = 761) HEMOGLOBIN (BEAKER) (test code = 12.4 GM/DL 13.0-16.8 L 410) HEMATOCRIT (BEAKER) (test code = 37.2 % 36.0-50.0 411) MEAN CORPUSCULAR VOLUME (BEAKER) 92.3 fL 82.0-99.0 (test code = 753) MEAN CORPUSCULAR HEMOGLOBIN 30.8 pg 27.0-33.0 (BEAKER) (test code = 751) MEAN CORPUSCULAR HEMOGLOBIN CONC 33.3 GM/DL 32.0-36.0 (BEAKER) (test code = 752) RED CELL DISTRIBUTION WIDTH 12.5 % 12.0-15.0 (BEAKER) (test code = 412) PLATELET COUNT (BEAKER) (test 199 K/CU MM 150-430 code = 756) MEAN PLATELET VOLUME (BEAKER) 11.8 fL 6.0-11.5 H (test code = 754) NUCLEATED RED BLOOD CELLS 0 /100 WBC 0-0 (BEAKER) (test code = 413) NEUTROPHILS RELATIVE PERCENT 58 % (BEAKER) (test code = 429) LYMPHOCYTES RELATIVE PERCENT 22 % (BEAKER) (test code = 430) MONOCYTES RELATIVE PERCENT 12 % (BEAKER) (test code = 431) EOSINOPHILS RELATIVE PERCENT 6 % (BEAKER) (test code = 432) BASOPHILS RELATIVE PERCENT 1 % (BEAKER) (test code = 437) NEUTROPHILS ABSOLUTE COUNT 4.64 K/ L 1.80-8.00 (BEAKER) (test code = 670) LYMPHOCYTES ABSOLUTE COUNT 1.78 K/ L 1.48-4.50 (BEAKER) (test code = 414) MONOCYTES ABSOLUTE COUNT (BEAKER) 0.96 K/ L 0.00-1.30 (test code = 415) EOSINOPHILS ABSOLUTE COUNT 0.44 K/ L 0.00-0.50 (BEAKER) (test code = 416) BASOPHILS ABSOLUTE COUNT (BEAKER) 0.05 K/ L 0.00-0.20 (test code = 417) IMMATURE GRANULOCYTES-RELATIVE 1 % 0-0 H PERCENT (BEAKER) (test code = 2801) CBC W/PLT COUNT & AUTO [id number] 22:16:00 Test Item Value Reference Range Interpretation Comments WHITE BLOOD CELL COUNT (BEAKER) 7.8 K/ L 4.0-10.0 (test code = 775) RED BLOOD CELL COUNT (BEAKER) 4.25 M/ L 4.20-5.80 (test code = 761) HEMOGLOBIN (BEAKER) (test code = 13.1 GM/DL 13.0-16.8 410) HEMATOCRIT (BEAKER) (test code = 39.5 % 36.0-50.0 411) MEAN CORPUSCULAR VOLUME (BEAKER) 92.9 fL 82.0-99.0 (test code = 753) MEAN CORPUSCULAR HEMOGLOBIN 30.8 pg 27.0-33.0 (BEAKER) (test code = 751) MEAN CORPUSCULAR HEMOGLOBIN CONC 33.2 GM/DL 32.0-36.0 (BEAKER) (test code = 752) RED CELL DISTRIBUTION WIDTH 12.6 % 12.0-15.0 (BEAKER) (test code = 412) PLATELET COUNT (BEAKER) (test 219 K/CU MM 150-430 code = 756) MEAN PLATELET VOLUME (BEAKER) 11.7 fL 6.0-11.5 H (test code = 754) NUCLEATED RED BLOOD CELLS 0 /100 WBC 0-0 (BEAKER) (test code = 413) NEUTROPHILS RELATIVE PERCENT 65 % (BEAKER) (test code = 429) LYMPHOCYTES RELATIVE PERCENT 17 % (BEAKER) (test code = 430) MONOCYTES RELATIVE PERCENT 12 % (BEAKER) (test code = 431) EOSINOPHILS RELATIVE PERCENT 4 % (BEAKER) (test code = 432) BASOPHILS RELATIVE PERCENT 1 % (BEAKER) (test code = 437) NEUTROPHILS ABSOLUTE COUNT 5.04 K/ L 1.80-8.00 (BEAKER) (test code = 670) LYMPHOCYTES ABSOLUTE COUNT 1.30 K/ L 1.48-4.50 L (BEAKER) (test code = 414) MONOCYTES ABSOLUTE COUNT (BEAKER) 0.92 K/ L 0.00-1.30 (test code = 415) EOSINOPHILS ABSOLUTE COUNT 0.32 K/ L 0.00-0.50 (BEAKER) (test code = 416) BASOPHILS ABSOLUTE COUNT (BEAKER) 0.08 K/ L 0.00-0.20 (test code = 417) IMMATURE GRANULOCYTES-RELATIVE 2 % 0-0 H PERCENT (BEAKER) (test code = 2801) POCT-GLUCOSE [id number] 22:12:00 Test Item Value Reference Range Interpretation Comments POC-GLUCOSE METER 396 mg/dL 70-110 H : TESTED A T [address] (BEAKER) (test code [address], = 1538) [facility] [address]: [employer] Mate/Techni cornelia ID = [id number] for gordon Whitehead RAD, FOOT, MIN 3 VIEWS, [id number] 21:39:00Reason for exam:->L foot ulcer.[facility]Y FORD : 1975 Sex: MFINAL REPORT CLINICAL HISTORY: Left foot ulcer COMPARISON: 03/20/2020 FINDINGS: 3 images of the left foot are submitted. There is soft tissue irregularity suggestive of ulceration at the plantar margin of the medial forefoot. There is no underlying fracture, malalignment or destructive bony lesion. The gas does not definitely track to the bone surface. Vascular calci fications are present in the ankle and foot. Please note that the radiographic appearance of osteomyelitis lags behind clinical onset. If of further clinical concern, three-phase bone scan or MRI is recommended. Signed: Shraddha Stanley MDReport Verified Date/Time: 03/30/2020 21:39:00 BASIC METABOLIC [id number] 21:34:00 Test Item Value Reference Range Interpretation Comments SODIUM (BEAKER) 135 meq/L 135-148 (test code = 381) POTASSIUM (BEAKER) 5.0 meq/L 3.6-5.5 Specimen slightly (test code = 379) hemolyzed CHLORIDE (BEAKER) 95 meq/L 98-106 L (test code = 382) CO2 (BEAKER) (test 26 meq/L 20-29 code = 355) BLOOD UREA NITROGEN 89 mg/dL 10-26 H (BEAKER) (test code = 354) CREATININE (BEAKER) 3.76 mg/dL 0.50-1.20 H Specimen slightly (test code = 358) hemolyzed GLUCOSE RANDOM 407 mg/dL 70-110 HH (BEAKER) (test code = 652) CALCIUM (BEAKER) 8.1 mg/dL 8.5-10.5 L (test code = 697) EGFR (BEAKER) (test 17 mL/min/1.73 ESTIMA JOSÉ LUIS GFR IS code = 1092) sq m NOT ACCURATE CREATININE CLEARANCE IN PREDICTING GLOMERULAR FILTRATION RATE . ESTIMATED GFR I S NOT APPLICABLE FOR DIALYSIS PATIEN TS. [employer] ID - JBERNOperator ID - JBERNOperator ID - JBERNOperator ID - JBERNOperator ID - JBERNOperator ID - JBERNOperator ID - JBERNOperator ID - JBERNOperator ID - JBERNOperator ID - JBERNOperator ID- JBERNOperator ID - JBERNOperator ID - JBERNSARS-COV2/RT-PCR ([facility])2020-03-30 21:04:00 Test Item Value Reference Range Interpretation Comments SARS-COV2/RT-PCR Negative Not Detected, (test code = 3124088) Negative, See external report for linked test SARS-COV-2 PERFORMING Perfor med @ [facility] (test code = 8208953) BLOOD [id number] 04:00:00 Test Item Value Reference Range Interpretation Comments CULTURE (BEAKER) (test No growth in 5 days code = 1095) BLOOD [id number] 04:00:00 Test Item Value Reference Range Interpretation Comments CULTURE (BEAKER) (test No growth in 5 days code = 1095) BASIC METABOLIC [id number] 01:36:00 Test Item Value Reference Range Interpretation Comments SODIUM (BEAKER) 140 meq/L 135-148 (test code = 381) POTASSIUM (BEAKER) 4.2 meq/L 3.6-5.5 (test code = 379) CHLORIDE (BEAKER) 101 meq/L 98-106 (test code = 382) CO2 (BEAKER) (test 27 meq/L 20- code = 355) BLOOD UREA NITROGEN 45 mg/dL 10-26 H (BEAKER) (test code = 354) CREATININE (BEAKER) 2.05 mg/dL 0.50-1.20 H (test code = 358) GLUCOSE RANDOM 241 mg/dL 70-110 H (BEAKER) (test code = 652) CALCIUM (BEAKER) 8.8 mg/dL 8.5-10.5 (test code = 697) EGFR (BEAKER) (test 35 mL/min/1.73 ESTIMA JOSÉ LUIS GFR IS code = 1092) sq m NOT ACCURATE CREATININE CLEARANCE IN PREDICTING GLOMERULAR FILTRATION RATE . ESTIMATED GFR I S NOT APPLICABLE FOR DIALYSIS PATIEN TS. [employer] ID - [id number] ID - [id number] ID - imqt87Ijgjyayc ID - cctk28Prsarbdk ID - jwjq50Mfxzdxya ID - mqzu16Gijeario ID - xwpn15Drfgwzwd ID - sgmz14Wrutmanq ID - bzyn95Focbhmwo ID - pmuf30Tjryylam ID - mklj73Mtmcneoz ID - nene68Btklqepj ID - tnaf40U-Keyjabzw [id number] 01:34:00 Test Item Value Reference Range Interpretation Comments CRP (test code = 676) 0.66 mg/dL 0-0.5 H ISSA (test code = ISSA) [employer] ID - [id number] Lab Interpretation (test Abnormal code = 35221-6) [facility] [id number] 01:34:00 Test Item Value Reference Range Interpretation Comments CRP (test code = 676) 0.66 mg/dL 0-0.5 H ISSA (test code = ISSA) [employer] ID - [id number] Lab Interpretation (test Abnormal code = 54071-0) [facility] [id number] 01:34:00 Test Item Value Reference Range Interpretation Comments CRP (test code = 676) 0.66 mg/dL 0-0.5 H ISSA (test code = ISSA) [employer] ID - [id number] Lab Interpretation (test Abnormal code = 18179-8) [facility] [id number] 01:34:00 Test Item Value Reference Range Interpretation Comments CRP (test code = 676) 0.66 mg/dL 0-0.5 H ISSA (test code = ISSA) [employer] ID - [id number] Lab Interpretation (test Abnormal code = 80748-5) [facility] [id number] 01:34:00 Test Item Value Reference Range Interpretation Comments CRP (test code = 676) 0.66 mg/dL 0.00-0.50 H ISSA (test code = ISSA) [employer] ID - [id number] Lab Interpretation (test Abnormal code = 02619-8) [facility] [id number] 01:34:00 Test Item Value Reference Range Interpretation Comments CRP (test code = 676) 0.66 mg/dL 0.00-0.50 H ISSA (test code = ISSA) [employer] ID - [id number] Lab Interpretation (test Abnormal code = 36561-4) [facility] [id number] 01:34:00 Test Item Value Reference Range Interpretation Comments CRP (test code = 676) 0.66 mg/dL 0.00-0.50 H ISSA (test code = ISSA) [employer] ID - [id number] Lab Interpretation (test Abnormal code = 90667-9) [facility] [id number] 01:34:00 Test Item Value Reference Range Interpretation Comments C-REACTIVE PROTEIN (BEAKER) (test 0.66 mg/dL 0.00-0.50 H code = 676) [employer] ID - [id number] ACID, [id number] 01:33:00 Test Item Value Reference Range Interpretation Comments LACTATE BLOOD VENOUS (2) (BEAKER) 1.75 mmol/L 0.50-<2.00 (test code = 2872) [employer] ID - [id number] ID - [id number] ID - [id number] ID - [id number] CBC W/PLT COUNT & AUTO [id number] 01:21:00 Test Item Value Reference Range Interpretation Comments WHITE BLOOD CELL COUNT (BEAKER) 9.0 K/ L 4.0-10.0 (test code = 775) RED BLOOD CELL COUNT (BEAKER) 4.56 M/ L 4.20-5.80 (test code = 761) HEMOGLOBIN (BEAKER) (test code = 14.3 GM/DL 13.0-16.8 410) HEMATOCRIT (BEAKER) (test code = 42.4 % 36.0-50.0 411) MEAN CORPUSCULAR VOLUME (BEAKER) 93.0 fL 82.0-99.0 (test code = 753) MEAN CORPUSCULAR HEMOGLOBIN 31.4 pg 27.0-33.0 (BEAKER) (test code = 751) MEAN CORPUSCULAR HEMOGLOBIN CONC 33.7 GM/DL 32.0-36.0 (BEAKER) (test code = 752) RED CELL DISTRIBUTION WIDTH 12.4 % 12.0-15.0 (BEAKER) (test code = 412) PLATELET COUNT (BEAKER) (test 228 K/CU MM 150-430 code = 756) MEAN PLATELET VOLUME (BEAKER) 11.1 fL 6.0-11.5 (test code = 754) NUCLEATED RED BLOOD CELLS 0 /100 WBC 0-0 (BEAKER) (test code = 413) NEUTROPHILS RELATIVE PERCENT 66 % (BEAKER) (test code = 429) LYMPHOCYTES RELATIVE PERCENT 19 % (BEAKER) (test code = 430) MONOCYTES RELATIVE PERCENT 9 % (BEAKER) (test code = 431) EOSINOPHILS RELATIVE PERCENT 4 % (BEAKER) (test code = 432) BASOPHILS RELATIVE PERCENT 1 % (BEAKER) (test code = 437) NEUTROPHILS ABSOLUTE COUNT 5.96 K/ L 1.80-8.00 (BEAKER) (test code = 670) LYMPHOCYTES ABSOLUTE COUNT 1.70 K/ L 1.48-4.50 (BEAKER) (test code = 414) MONOCYTES ABSOLUTE COUNT (BEAKER) 0.83 K/ L 0.00-1.30 (test code = 415) EOSINOPHILS ABSOLUTE COUNT 0.32 K/ L 0.00-0.50 (BEAKER) (test code = 416) BASOPHILS ABSOLUTE COUNT (BEAKER) 0.07 K/ L 0.00-0.20 (test code = 417) IMMATURE GRANULOCYTES-RELATIVE 1 % 0-0 H PERCENT (BEAKER) (test code = 2801) RAD, FOOT, MIN 3 VIEWS, [id number] 00:51:00Reason for exam:->[facility] : 1975 Sex: MFINAL REPORT TECHNIQUE: Frontal, oblique, and lateral views of theleft foot. INDICATION: ABSCESS. COMPARISON: None. IMPRESSION:There is soft tissue swelling with superficial skin defect compatible with ulceration along the plantar tissues of the distal midfoot. No osseous erosion. No acute fracture or dislocation. Joint spaces are preserved. Peripheral vascular calcifications are evident. Signed: [facility] Verified Date/Time: 03/20/2020 00:51:45 Panel Description: Hemoglobin A1c/Hemoglobin.total in [id number] 11:40:00 Test Item Value Reference Range Interpretation Comments Hemoglobin A1c (test code 13.1 % 4.8-5.6 H = 4548-4) . Prediabetes: 5. 7 - 6.4 Diabete s: >6.4 Glycemi c control for niall lts with diabetes: <7.0

P erforme d by:
[facility] ()

[facility] Description: Hemoglobin A1c/Hemoglobin.total in Blood 2020-03-07 11:40:00 Test Item Value Reference Range Interpretation Comments Hemoglobin A1c (test code 13.1 % 4.8-5.6 H = 4548-4) . Prediabetes: 5. 7 - 6.4 Diabete s: >6.4 Glycemi c control for niall lts with diabetes: <7.0

P erforme d by:
[facility] ()

[facility] Description: Hemoglobin A1c/Hemoglobin.total in Blood 2020-03-07 11:40:00 Test Item Value Reference Range Interpretation Comments Hemoglobin A1c (test code 13.1 % 4.8-5.6 H = 4548-4) . Prediabetes: 5. 7 - 6.4 Diabete s: >6.4 Glycemi c control for niall lts with diabetes: <7.0

P erforme d by:
[facility]

[facility] Description: Hemoglobin A1c/Hemoglobin.total in Blood 2020-03-07 11:40:00 Test Item Value Reference Range Interpretation Comments Hemoglobin A1c (test code 13.1 % 4.8-5.6 H = 4548-4) . Prediabetes: 5. 7 - 6.4 Diabete s: >6.4 Glycemi c control for niall lts with diabetes: <7.0

P erforme d by:
[facility] ()

[facility]: Hemoglobin A1c/Hemoglobin.total in Blood 2020-03-07 11:40:00 Test Item Value Reference Range Interpretation Comments Hemoglobin A1c (test code 13.1 % 4.8-5.6 H = 4548-4) . Prediabetes: 5. 7 - 6.4 Diabete s: >6.4 Glycemi c control for niall lts with diabetes: <7.0

P erforme d by:
[facility] ([place])

[facility] Description: Hemoglobin A1c/Hemoglobin.total in Blood 2020-03-07 11:40:00 Test Item Value Reference Range Interpretation Comments Hemoglobin A1c (test code 13.1 % 4.8-5.6 H = 4548-4) . Prediabetes: 5. 7 - 6.4 Diabete s: >6.4 Glycemi c control for niall lts with diabetes: <7.0

P erforme d by:
[facility] ([place])

[facility] Description: Hemoglobin A1c/Hemoglobin.total in Blood 2020-03-07 11:40:00 Test Item Value Reference Range Interpretation Comments Hemoglobin A1c (test code 13.1 % 4.8-5.6 H = 4548-4) . Prediabetes: 5. 7 - 6.4 Diabete s: >6.4 Glycemi c control for niall lts with diabetes: <7.0

P erforme d by:
[facility] ([place])

[facility] Description: Hemoglobin A1c/Hemoglobin.total in Blood 2020-03-07 11:40:00 Test Item Value Reference Range Interpretation Comments Hemoglobin A1c (test code 13.1 % 4.8-5.6 H = 4548-4) . Prediabetes: 5. 7 - 6.4 Diabete s: >6.4 Glycemi c control for niall lts with diabetes: <7.0

P erforme d by:
[facility] ()

[facility] Description: Hemoglobin A1c/Hemoglobin.total in Blood 2020-03-07 11:40:00 Test Item Value Reference Range Interpretation Comments Hemoglobin A1c (test code 13.1 % 4.8-5.6 H = 4548-4) . Prediabetes: 5. 7 - 6.4 Diabete s: >6.4 Glycemi c control for niall lts with diabetes: <7.0

P erforme d by:
[facility] ([place])

[facility] Description: Hemoglobin A1c/Hemoglobin.total in Blood 2020-03-07 11:40:00 Test Item Value Reference Range Interpretation Comments Hemoglobin A1c (test code 13.1 % 4.8-5.6 H = 4548-4) . Prediabetes: 5. 7 - 6.4 Diabete s: >6.4 Glycemi c control for niall lts with diabetes: <7.0

P erforme d by:
[facility] ([place])

[facility] Description: Hemoglobin A1c/Hemoglobin.total in Blood 2020-03-07 11:40:00 Test Item Value Reference Range Interpretation Comments Hemoglobin A1c (test code 13.1 % 4.8-5.6 H = 4548-4) . Prediabetes: 5. 7 - 6.4 Diabete s: >6.4 Glycemi c control for niall lts with diabetes: <7.0

P erforme d by:
[facility] ([place])

[facility] Description: Hemoglobin A1c/Hemoglobin.total in Blood 2020-03-07 11:40:00 Test Item Value Reference Range Interpretation Comments Hemoglobin A1c (test code 13.1 % 4.8-5.6 H = 4548-4) . Prediabetes: 5. 7 - 6.4 Diabete s: >6.4 Glycemi c control for niall lts with diabetes: <7.0

P erforme d by:
[facility] ()

[facility] Description: Hemoglobin A1c/Hemoglobin.total in Blood 2020-03-07 11:40:00 Test Item Value Reference Range Interpretation Comments Hemoglobin A1c (test code 13.1 % 4.8-5.6 H = 4548-4) . Prediabetes: 5. 7 - 6.4 Diabete s: >6.4 Glycemi c control for niall lts with diabetes: <7.0

P erforme d by:
[facility] ([place])

[facility] Description: Hemoglobin A1c/Hemoglobin.total in Blood 2020-03-07 11:40:00 Test Item Value Reference Range Interpretation Comments Hemoglobin A1c (test code 13.1 % 4.8-5.6 H = 4548-4) . Prediabetes: 5. 7 - 6.4 Diabete s: >6.4 Glycemi c control for niall lts with diabetes: <7.0

P erforme d by:
[facility] ([place])

[facility] Description: Hemoglobin A1c/Hemoglobin.total in Blood 2020-03-07 11:40:00 Test Item Value Reference Range Interpretation Comments Hemoglobin A1c (test code 13.1 % 4.8-5.6 H = 4548-4) . Prediabetes: 5. 7 - 6.4 Diabete s: >6.4 Glycemi c control for niall lts with diabetes: <7.0

P erforme d by:
[facility] ([place])

[facility] Description: Hemoglobin A1c/Hemoglobin.total in Blood 2020-03-07 11:40:00 Test Item Value Reference Range Interpretation Comments Hemoglobin A1c (test code 13.1 % 4.8-5.6 H = 4548-4) . Prediabetes: 5. 7 - 6.4 Diabete s: >6.4 Glycemi c control for niall lts with diabetes: <7.0

P erforme d by:
[facility] ([place])

[facility] Description: Lipid [id number] 08:03:00 Test Item Value Reference Range Interpretation Comments Cholesterol, Total (test code = 209 mg/dL 100-199 H 3-3) Triglycerides (test code = 2571-8) 172 mg/dL 0-149 H HDL Cholesterol (test code = 29 mg/dL >39 L 5-9) VLDL Cholesterol Renuka (test code = 32 mg/dL 5-40 66254-2) LDL Chol Calc (NIH) (test code = 148 mg/dL 0-99 H 32640-7) Comment: (test code = 06377-2) [facility] Description: Lipid [id number] 08:03:00 Test Item Value Reference Range Interpretation Comments Cholesterol, Total (test code = 209 mg/dL 100-199 H 3-3) Triglycerides (test code = 2571-8) 172 mg/dL 0-149 H HDL Cholesterol (test code = 29 mg/dL >39 L 5-9) VLDL Cholesterol Renuka (test code = 32 mg/dL 5-40 09875-4) LDL Chol Calc (NIH) (test code = 148 mg/dL 0-99 H 46381-2) Comment: (test code = 52689-2) [employer] Description: Lipid [id number] 08:03:00 Test Item Value Reference Range Interpretation Comments Cholesterol, Total (test code = 209 mg/dL 100-199 H 2093-3) Triglycerides (test code = 2571-8) 172 mg/dL 0-149 H HDL Cholesterol (test code = 29 mg/dL >39 L 2085-9) VLDL Cholesterol Renuka (test code = 32 mg/dL 5-40 30048-1) LDL Chol Calc (NIH) (test code = 148 mg/dL 0-99 H 37330-4) Comment: (test code = 44380-9) [facility] Description: Lipid [id number] 08:03:00 Test Item Value Reference Range Interpretation Comments Cholesterol, Total (test code = 209 mg/dL 100-199 H 2093-3) Triglycerides (test code = 2571-8) 172 mg/dL 0-149 H HDL Cholesterol (test code = 29 mg/dL >39 L 2085-9) VLDL Cholesterol Renuka (test code = 32 mg/dL 5-40 33894-4) LDL Chol Calc (NIH) (test code = 148 mg/dL 0-99 H 27796-9) Comment: (test code = 57043-6) [employer] Description: Lipid [id number] 08:03:00 Test Item Value Reference Range Interpretation Comments Cholesterol, Total (test code = 209 mg/dL 100-199 H 2093-3) Triglycerides (test code = 2571-8) 172 mg/dL 0-149 H HDL Cholesterol (test code = 29 mg/dL >39 L 2085-9) VLDL Cholesterol Renuka (test code = 32 mg/dL 5-40 25077-8) LDL Chol Calc (NIH) (test code = 148 mg/dL 0-99 H 80071-2) Comment: (test code = 99867-0) [employer] Description: Lipid [id number] 08:03:00 Test Item Value Reference Range Interpretation Comments Cholesterol, Total (test code = 209 mg/dL 100-199 H 2093-3) Triglycerides (test code = 2571-8) 172 mg/dL 0-149 H HDL Cholesterol (test code = 29 mg/dL >39 L 2085-9) VLDL Cholesterol Renuka (test code = 32 mg/dL 5-40 98600-9) LDL Chol Calc (NIH) (test code = 148 mg/dL 0-99 H 50031-3) Comment: (test code = 30596-1) [facility] Description: Lipid [id number] 08:03:00 Test Item Value Reference Range Interpretation Comments Cholesterol, Total (test code = 209 mg/dL 100-199 H 2093-3) Triglycerides (test code = 2571-8) 172 mg/dL 0-149 H HDL Cholesterol (test code = 29 mg/dL >39 L 5-9) VLDL Cholesterol Renuka (test code = 32 mg/dL 5-40 85738-9) LDL Chol Calc (NIH) (test code = 148 mg/dL 0-99 H 50389-5) Comment: (test code = 97215-7) [facility] Description: Lipid [id number] 08:03:00 Test Item Value Reference Range Interpretation Comments Cholesterol, Total (test code = 209 mg/dL 100-199 H 3-3) Triglycerides (test code = 2571-8) 172 mg/dL 0-149 H HDL Cholesterol (test code = 29 mg/dL >39 L 5-9) VLDL Cholesterol Renuka (test code = 32 mg/dL 5-40 15101-5) LDL Chol Calc (NIH) (test code = 148 mg/dL 0-99 H 95011-9) Comment: (test code = 27613-0) [facility] Description: Lipid [id number] 08:03:00 Test Item Value Reference Range Interpretation Comments Cholesterol, Total (test code = 209 mg/dL 100-199 H 2093-3) Triglycerides (test code = 2571-8) 172 mg/dL 0-149 H HDL Cholesterol (test code = 29 mg/dL >39 L 5-9) VLDL Cholesterol Renuka (test code = 32 mg/dL 5-40 60974-3) LDL Chol Calc (NIH) (test code = 148 mg/dL 0-99 H 13160-1) Comment: (test code = 13117-6) [facility] Description: Lipid [id number] 08:03:00 Test Item Value Reference Range Interpretation Comments Cholesterol, Total (test code = 209 mg/dL 100-199 H 2093-3) Triglycerides (test code = 2571-8) 172 mg/dL 0-149 H HDL Cholesterol (test code = 29 mg/dL >39 L 5-9) VLDL Cholesterol Renuka (test code = 32 mg/dL 5-40 90212-1) LDL Chol Calc (NIH) (test code = 148 mg/dL 0-99 H 38130-0) Comment: (test code = 19454-0) [facility] Description: Lipid [id number] 08:03:00 Test Item Value Reference Range Interpretation Comments Cholesterol, Total (test code = 209 mg/dL 100-199 H 2093-3) Triglycerides (test code = 2571-8) 172 mg/dL 0-149 H HDL Cholesterol (test code = 29 mg/dL >39 L 5-9) VLDL Cholesterol Renuka (test code = 32 mg/dL 5-40 46819-2) LDL Chol Calc (NIH) (test code = 148 mg/dL 0-99 H 62896-9) Comment: (test code = 33463-0) [facility] Description: Lipid [id number] 08:03:00 Test Item Value Reference Range Interpretation Comments Cholesterol, Total (test code = 209 mg/dL 100-199 H 3-3) Triglycerides (test code = 2571-8) 172 mg/dL 0-149 H HDL Cholesterol (test code = 29 mg/dL >39 L 5-9) VLDL Cholesterol Renuka (test code = 32 mg/dL 5-40 62522-6) LDL Chol Calc (NIH) (test code = 148 mg/dL 0-99 H 84780-4) Comment: (test code = 82511-3) [facility] Description: Lipid [id number] 08:03:00 Test Item Value Reference Range Interpretation Comments Cholesterol, Total (test code = 209 mg/dL 100-199 H 2093-3) Triglycerides (test code = 2571-8) 172 mg/dL 0-149 H HDL Cholesterol (test code = 29 mg/dL >39 L 5-9) VLDL Cholesterol Renuka (test code = 32 mg/dL 5-40 87330-1) LDL Chol Calc (NIH) (test code = 148 mg/dL 0-99 H 77147-1) Comment: (test code = 67811-4) [facility] Description: Lipid [id number] 08:03:00 Test Item Value Reference Range Interpretation Comments Cholesterol, Total (test code = 209 mg/dL 100-199 H 2093-3) Triglycerides (test code = 2571-8) 172 mg/dL 0-149 H HDL Cholesterol (test code = 29 mg/dL >39 L 2085-9) VLDL Cholesterol Renuka (test code = 32 mg/dL 5-40 25939-7) LDL Chol Calc (NIH) (test code = 148 mg/dL 0-99 H 92915-8) Comment: (test code = 45414-9) [facility] Description: Lipid [id number] 08:03:00 Test Item Value Reference Range Interpretation Comments Cholesterol, Total (test code = 209 mg/dL 100-199 H 2093-3) Triglycerides (test code = 2571-8) 172 mg/dL 0-149 H HDL Cholesterol (test code = 29 mg/dL >39 L 2085-9) VLDL Cholesterol Renuka (test code = 32 mg/dL 5-40 41005-9) LDL Chol Calc (NIH) (test code = 148 mg/dL 0-99 H 12632-3) Comment: (test code = 75110-0) [facility] Description: Lipid [id number] 08:03:00 Test Item Value Reference Range Interpretation Comments Cholesterol, Total (test code = 209 mg/dL 100-199 H 2093-3) Triglycerides (test code = 2571-8) 172 mg/dL 0-149 H HDL Cholesterol (test code = 29 mg/dL >39 L 2085-9) VLDL Cholesterol Renuka (test code = 32 mg/dL 5-40 22669-7) LDL Chol Calc (NIH) (test code = 148 mg/dL 0-99 H 01867-2) Comment: (test code = 45388-5) [facility] Description: Comp. Metabolic Panel (14)2020-03-07 06:49:00 Test Item Value Reference Range Interpretation Comments Glucose (test code = 2345-7) 441 mg/dL 65-99 H BUN (test code = 3094-0) 52 mg/dL 6-24 H Creatinine (test code = 2.05 mg/dL 0.76-1.27 H 2160-0) eGFR If NonAfricn Am (test 38 mL/min/1.73 >59 L code = 77655-1) eGFR If Africn Am (test code = 44 mL/min/1.73 >59 L 41732-9) BUN/Creatinine Ratio (test 25 9-20 H code = 3097-3) Sodium (test code = 2951-2) 138 mmol/L 134-144 Potassium (test code = 2823-3) 5.4 mmol/L 3.5-5.2 H Chloride (test code = 2075-0) 96 mmol/L 96-106 Carbon Dioxide, Total (test 29 mmol/L 20-29 code = 2028-9) Calcium (test code = 65936-2) 9.2 mg/dL 8.7-10.2 Protein, Total (test code = 6.2 g/dL 6.0-8.5 2885-2) Albumin (test code = 1751-7) 3.4 g/dL 4.0-5.0 L Globulin, Total (test code = 2.8 g/dL 1.5-4.5 60993-6) A/G Ratio (test code = 1759-0) 1.2 1.2-2.2 Bilirubin, Total (test code = 0.5 mg/dL 0.0-1.2 1975-2) Alkaline Phosphatase (test 112 IU/L 39-117 code = 6768-6) AST (SGOT) (test code = 21 IU/L 0-40 1920-8) ALT (SGPT) (test code = 31 IU/L 0-44 1742-6) [facility] Description: Comp. Metabolic Panel (14)2020-03-07 06:49:00 Test Item Value Reference Range Interpretation Comments Glucose (test code = 2345-7) 441 mg/dL 65-99 H BUN (test code = 3094-0) 52 mg/dL 6-24 H Creatinine (test code = 2.05 mg/dL 0.76-1.27 H 2160-0) eGFR If NonAfricn Am (test 38 mL/min/1.73 >59 L code = 63683-1) eGFR If Africn Am (test code = 44 mL/min/1.73 >59 L 53456-9) BUN/Creatinine Ratio (test 25 9-20 H code = 3097-3) Sodium (test code = 2951-2) 138 mmol/L 134-144 Potassium (test code = 2823-3) 5.4 mmol/L 3.5-5.2 H Chloride (test code = 2075-0) 96 mmol/L 96-106 Carbon Dioxide, Total (test 29 mmol/L 20-29 code = 8-9) Calcium (test code = 33448-4) 9.2 mg/dL 8.7-10.2 Protein, Total (test code = 6.2 g/dL 6.0-8.5 2885-2) Albumin (test code = 1751-7) 3.4 g/dL 4.0-5.0 L Globulin, Total (test code = 2.8 g/dL 1.5-4.5 94699-4) A/G Ratio (test code = 1759-0) 1.2 1.2-2.2 Bilirubin, Total (test code = 0.5 mg/dL 0.0-1.2 1975-2) Alkaline Phosphatase (test 112 IU/L 39-117 code = 6768-6) AST (SGOT) (test code = 21 IU/L 0-40 1920-8) ALT (SGPT) (test code = 31 IU/L 0-44 1742-6) [facility] Description: Comp. Metabolic Panel (142020-03-07 06:49:00 Test Item Value Reference Range Interpretation Comments Glucose (test code = 2345-7) 441 mg/dL 65-99 H BUN (test code = 3094-0) 52 mg/dL 6-24 H Creatinine (test code = 2.05 mg/dL 0.76-1.27 H 2160-0) eGFR If NonAfricn Am (test 38 mL/min/1.73 >59 L code = 17647-7) eGFR If Africn Am (test code = 44 mL/min/1.73 >59 L 47165-4) BUN/Creatinine Ratio (test 25 9-20 H code = 3097-3) Sodium (test code = 2951-2) 138 mmol/L 134-144 Potassium (test code = 2823-3) 5.4 mmol/L 3.5-5.2 H Chloride (test code = 2075-0) 96 mmol/L 96-106 Carbon Dioxide, Total (test 29 mmol/L -29 code = 2027-9) Calcium (test code = 20496-5) 9.2 mg/dL 8.7-10.2 Protein, Total (test code = 6.2 g/dL 6.0-8.5 2885-2) Albumin (test code = 1751-7) 3.4 g/dL 4.0-5.0 L Globulin, Total (test code = 2.8 g/dL 1.5-4.5 97115-6) A/G Ratio (test code = 1759-0) 1.2 1.2-2.2 Bilirubin, Total (test code = 0.5 mg/dL 0.0-1.2 1975-2) Alkaline Phosphatase (test 112 IU/L 39-117 code = 6768-6) AST (SGOT) (test code = 21 IU/L 0-40 1920-8) ALT (SGPT) (test code = 31 IU/L 0-44 1742-6) [facility] Description: Comp. Metabolic Panel (14)2020-03-07 06:49:00 Test Item Value Reference Range Interpretation Comments Glucose (test code = 2345-7) 441 mg/dL 65-99 H BUN (test code = 3094-0) 52 mg/dL 6-24 H Creatinine (test code = 2.05 mg/dL 0.76-1.27 H 2160-0) eGFR If NonAfricn Am (test 38 mL/min/1.73 >59 L code = 15623-4) eGFR If Africn Am (test code = 44 mL/min/1.73 >59 L 19010-3) BUN/Creatinine Ratio (test 25 9-20 H code = 3097-3) Sodium (test code = 2951-2) 138 mmol/L 134-144 Potassium (test code = 2823-3) 5.4 mmol/L 3.5-5.2 H Chloride (test code = 5-0) 96 mmol/L 96-106 Carbon Dioxide, Total (test 29 mmol/L -29 code = 2027-9) Calcium (test code = 30395-4) 9.2 mg/dL 8.7-10.2 Protein, Total (test code = 6.2 g/dL 6.0-8.5 2885-2) Albumin (test code = 1751-7) 3.4 g/dL 4.0-5.0 L Globulin, Total (test code = 2.8 g/dL 1.5-4.5 96680-8) A/G Ratio (test code = 1759-0) 1.2 1.2-2.2 Bilirubin, Total (test code = 0.5 mg/dL 0.0-1.2 1975-2) Alkaline Phosphatase (test 112 IU/L 39-117 code = 6768-6) AST (SGOT) (test code = 21 IU/L 0-40 1920-8) ALT (SGPT) (test code = 31 IU/L 0-44 1742-6) [facility] Description: Comp. Metabolic Panel (14)2020-03-07 06:49:00 Test Item Value Reference Range Interpretation Comments Glucose (test code = 2345-7) 441 mg/dL 65-99 H BUN (test code = 3094-0) 52 mg/dL 6-24 H Creatinine (test code = 2.05 mg/dL 0.76-1.27 H 2160-0) eGFR If NonAfricn Am (test 38 mL/min/1.73 >59 L code = 28483-3) eGFR If Africn Am (test code = 44 mL/min/1.73 >59 L 65028-0) BUN/Creatinine Ratio (test 25 9-20 H code = 3097-3) Sodium (test code = 2951-2) 138 mmol/L 134-144 Potassium (test code = 2823-3) 5.4 mmol/L 3.5-5.2 H Chloride (test code = 2075-0) 96 mmol/L 96-106 Carbon Dioxide, Total (test 29 mmol/L 20-29 code = 8-9) Calcium (test code = 70325-6) 9.2 mg/dL 8.7-10.2 Protein, Total (test code = 6.2 g/dL 6.0-8.5 2885-2) Albumin (test code = 1751-7) 3.4 g/dL 4.0-5.0 L Globulin, Total (test code = 2.8 g/dL 1.5-4.5 62837-9) A/G Ratio (test code = 1759-0) 1.2 1.2-2.2 Bilirubin, Total (test code = 0.5 mg/dL 0.0-1.2 1974-2) Alkaline Phosphatase (test 112 IU/L 39-117 code = 6768-6) AST (SGOT) (test code = 21 IU/L 0-40 1920-8) ALT (SGPT) (test code = 31 IU/L 0-44 1742-6) [facility] Description: Comp. Metabolic Panel (14)2020-03-07 06:49:00 Test Item Value Reference Range Interpretation Comments Glucose (test code = 2345-7) 441 mg/dL 65-99 H BUN (test code = 3094-0) 52 mg/dL 6-24 H Creatinine (test code = 2.05 mg/dL 0.76-1.27 H 2160-0) eGFR If NonAfricn Am (test 38 mL/min/1.73 >59 L code = 72176-5) eGFR If Africn Am (test code = 44 mL/min/1.73 >59 L 62602-6) BUN/Creatinine Ratio (test 25 9-20 H code = 3097-3) Sodium (test code = 2951-2) 138 mmol/L 134-144 Potassium (test code = 2823-3) 5.4 mmol/L 3.5-5.2 H Chloride (test code = 2075-0) 96 mmol/L 96-106 Carbon Dioxide, Total (test 29 mmol/L 20-29 code = 2027-9) Calcium (test code = 20471-5) 9.2 mg/dL 8.7-10.2 Protein, Total (test code = 6.2 g/dL 6.0-8.5 2885-2) Albumin (test code = 1751-7) 3.4 g/dL 4.0-5.0 L Globulin, Total (test code = 2.8 g/dL 1.5-4.5 83493-3) A/G Ratio (test code = 1759-0) 1.2 1.2-2.2 Bilirubin, Total (test code = 0.5 mg/dL 0.0-1.2 1974-04) Alkaline Phosphatase (test 112 IU/L 39-117 code = 6768-6) AST (SGOT) (test code = 21 IU/L 0-40 0-8) ALT (SGPT) (test code = 31 IU/L 0-44 1742-6) [facility] Description: Comp. Metabolic Panel (14)2020-03-07 06:49:00 Test Item Value Reference Range Interpretation Comments Glucose (test code = 2345-7) 441 mg/dL 65-99 H BUN (test code = 3094-0) 52 mg/dL 6-24 H Creatinine (test code = 2.05 mg/dL 0.76-1.27 H 2160-0) eGFR If NonAfricn Am (test 38 mL/min/1.73 >59 L code = 43566-3) eGFR If Africn Am (test code = 44 mL/min/1.73 >59 L 83331-3) BUN/Creatinine Ratio (test 25 9-20 H code = 3097-3) Sodium (test code = 2951-2) 138 mmol/L 134-144 Potassium (test code = 2823-3) 5.4 mmol/L 3.5-5.2 H Chloride (test code = 2075-0) 96 mmol/L 96-106 Carbon Dioxide, Total (test 29 mmol/L 20-29 code = 2027-9) Calcium (test code = 11930-6) 9.2 mg/dL 8.7-10.2 Protein, Total (test code = 6.2 g/dL 6.0-8.5 2885-2) Albumin (test code = 1751-7) 3.4 g/dL 4.0-5.0 L Globulin, Total (test code = 2.8 g/dL 1.5-4.5 79745-2) A/G Ratio (test code = 1759-0) 1.2 1.2-2.2 Bilirubin, Total (test code = 0.5 mg/dL 0.0-1.2 1974-04) Alkaline Phosphatase (test 112 IU/L 39-117 code = 6768-6) AST (SGOT) (test code = 21 IU/L 0-40 0-8) ALT (SGPT) (test code = 31 IU/L 0-44 1742-6) [facility] Description: Comp. Metabolic Panel (14)2020-03-07 06:49:00 Test Item Value Reference Range Interpretation Comments Glucose (test code = 2345-7) 441 mg/dL 65-99 H BUN (test code = 3094-0) 52 mg/dL 6-24 H Creatinine (test code = 2.05 mg/dL 0.76-1.27 H 2160-0) eGFR If NonAfricn Am (test 38 mL/min/1.73 >59 L code = 52370-1) eGFR If Africn Am (test code = 44 mL/min/1.73 >59 L 99959-8) BUN/Creatinine Ratio (test 25 9-20 H code = 3097-3) Sodium (test code = 2951-2) 138 mmol/L 134-144 Potassium (test code = 2823-3) 5.4 mmol/L 3.5-5.2 H Chloride (test code = 2075-0) 96 mmol/L 96-106 Carbon Dioxide, Total (test 29 mmol/L 20-29 code = 2027-9) Calcium (test code = 33243-7) 9.2 mg/dL 8.7-10.2 Protein, Total (test code = 6.2 g/dL 6.0-8.5 2885-2) Albumin (test code = 1751-7) 3.4 g/dL 4.0-5.0 L Globulin, Total (test code = 2.8 g/dL 1.5-4.5 31801-7) A/G Ratio (test code = 1759-0) 1.2 1.2-2.2 Bilirubin, Total (test code = 0.5 mg/dL 0.0-1.2 1975-2) Alkaline Phosphatase (test 112 IU/L 39-117 code = 6768-6) AST (SGOT) (test code = 21 IU/L 0-40 1920-8) ALT (SGPT) (test code = 31 IU/L 0-44 1742-6) [facility] Description: Comp. Metabolic Panel (14)2020-03-07 06:49:00 Test Item Value Reference Range Interpretation Comments Glucose (test code = 2345-7) 441 mg/dL 65-99 H BUN (test code = 3094-0) 52 mg/dL 6-24 H Creatinine (test code = 2.05 mg/dL 0.76-1.27 H 2160-0) eGFR If NonAfricn Am (test 38 mL/min/1.73 >59 L code = 66895-6) eGFR If Africn Am (test code = 44 mL/min/1.73 >59 L 98400-7) BUN/Creatinine Ratio (test 25 9-20 H code = 3097-3) Sodium (test code = 2951-2) 138 mmol/L 134-144 Potassium (test code = 2823-3) 5.4 mmol/L 3.5-5.2 H Chloride (test code = 2075-0) 96 mmol/L 96-106 Carbon Dioxide, Total (test 29 mmol/L 20-29 code = 8-9) Calcium (test code = 69639-3) 9.2 mg/dL 8.7-10.2 Protein, Total (test code = 6.2 g/dL 6.0-8.5 2885-2) Albumin (test code = 1751-7) 3.4 g/dL 4.0-5.0 L Globulin, Total (test code = 2.8 g/dL 1.5-4.5 03324-1) A/G Ratio (test code = 1759-0) 1.2 1.2-2.2 Bilirubin, Total (test code = 0.5 mg/dL 0.0-1.2 1975-2) Alkaline Phosphatase (test 112 IU/L 39-117 code = 6768-6) AST (SGOT) (test code = 21 IU/L 0-40 1920-8) ALT (SGPT) (test code = 31 IU/L 0-44 1742-6) [facility] Description: Comp. Metabolic Panel (142020-03-07 06:49:00 Test Item Value Reference Range Interpretation Comments Glucose (test code = 2345-7) 441 mg/dL 65-99 H BUN (test code = 3094-0) 52 mg/dL 6-24 H Creatinine (test code = 2.05 mg/dL 0.76-1.27 H 2160-0) eGFR If NonAfricn Am (test 38 mL/min/1.73 >59 L code = 33478-8) eGFR If Africn Am (test code = 44 mL/min/1.73 >59 L 11235-2) BUN/Creatinine Ratio (test 25 9-20 H code = 3097-3) Sodium (test code = 2951-2) 138 mmol/L 134-144 Potassium (test code = 2823-3) 5.4 mmol/L 3.5-5.2 H Chloride (test code = 2075-0) 96 mmol/L 96-106 Carbon Dioxide, Total (test 29 mmol/L 20-29 code = 2028-9) Calcium (test code = 05722-8) 9.2 mg/dL 8.7-10.2 Protein, Total (test code = 6.2 g/dL 6.0-8.5 2885-2) Albumin (test code = 1751-7) 3.4 g/dL 4.0-5.0 L Globulin, Total (test code = 2.8 g/dL 1.5-4.5 73877-2) A/G Ratio (test code = 1759-0) 1.2 1.2-2.2 Bilirubin, Total (test code = 0.5 mg/dL 0.0-1.2 1975-2) Alkaline Phosphatase (test 112 IU/L 39-117 code = 6768-6) AST (SGOT) (test code = 21 IU/L 0-40 1920-8) ALT (SGPT) (test code = 31 IU/L 0-44 1742-6) [facility] Description: Comp. Metabolic Panel (142020-03-07 06:49:00 Test Item Value Reference Range Interpretation Comments Glucose (test code = 2345-7) 441 mg/dL 65-99 H BUN (test code = 3094-0) 52 mg/dL 6-24 H Creatinine (test code = 2.05 mg/dL 0.76-1.27 H 2160-0) eGFR If NonAfricn Am (test 38 mL/min/1.73 >59 L code = 21708-2) eGFR If Africn Am (test code = 44 mL/min/1.73 >59 L 26533-8) BUN/Creatinine Ratio (test 25 9-20 H code = 3097-3) Sodium (test code = 2951-2) 138 mmol/L 134-144 Potassium (test code = 2823-3) 5.4 mmol/L 3.5-5.2 H Chloride (test code = 2075-0) 96 mmol/L 96-106 Carbon Dioxide, Total (test 29 mmol/L 20-29 code = 2027-9) Calcium (test code = 76888-5) 9.2 mg/dL 8.7-10.2 Protein, Total (test code = 6.2 g/dL 6.0-8.5 2885-2) Albumin (test code = 1751-7) 3.4 g/dL 4.0-5.0 L Globulin, Total (test code = 2.8 g/dL 1.5-4.5 34468-9) A/G Ratio (test code = 1759-0) 1.2 1.2-2.2 Bilirubin, Total (test code = 0.5 mg/dL 0.0-1.2 1975-2) Alkaline Phosphatase (test 112 IU/L 39-117 code = 6768-6) AST (SGOT) (test code = 21 IU/L 0-40 1920-8) ALT (SGPT) (test code = 31 IU/L 0-44 1742-6) [facility] Description: Comp. Metabolic Panel (142020-03-07 06:49:00 Test Item Value Reference Range Interpretation Comments Glucose (test code = 2345-7) 441 mg/dL 65-99 H BUN (test code = 3094-0) 52 mg/dL 6-24 H Creatinine (test code = 2.05 mg/dL 0.76-1.27 H 2160-0) eGFR If NonAfricn Am (test 38 mL/min/1.73 >59 L code = 30639-1) eGFR If Africn Am (test code = 44 mL/min/1.73 >59 L 95139-7) BUN/Creatinine Ratio (test 25 9-20 H code = 3097-3) Sodium (test code = 2951-2) 138 mmol/L 134-144 Potassium (test code = 2823-3) 5.4 mmol/L 3.5-5.2 H Chloride (test code = 2075-0) 96 mmol/L 96-106 Carbon Dioxide, Total (test 29 mmol/L -29 code = 2027-9) Calcium (test code = 31052-9) 9.2 mg/dL 8.7-10.2 Protein, Total (test code = 6.2 g/dL 6.0-8.5 2885-2) Albumin (test code = 1751-7) 3.4 g/dL 4.0-5.0 L Globulin, Total (test code = 2.8 g/dL 1.5-4.5 93433-8) A/G Ratio (test code = 1759-0) 1.2 1.2-2.2 Bilirubin, Total (test code = 0.5 mg/dL 0.0-1.2 1975-2) Alkaline Phosphatase (test 112 IU/L 39-117 code = 6768-6) AST (SGOT) (test code = 21 IU/L 0-40 1920-8) ALT (SGPT) (test code = 31 IU/L 0-44 1742-6) [facility] Description: Comp. Metabolic Panel (142020-03-07 06:49:00 Test Item Value Reference Range Interpretation Comments Glucose (test code = 2345-7) 441 mg/dL 65-99 H BUN (test code = 3094-0) 52 mg/dL 6-24 H Creatinine (test code = 2.05 mg/dL 0.76-1.27 H 2160-0) eGFR If NonAfricn Am (test 38 mL/min/1.73 >59 L code = 15414-5) eGFR If Africn Am (test code = 44 mL/min/1.73 >59 L 08885-5) BUN/Creatinine Ratio (test 25 9-20 H code = 3097-3) Sodium (test code = 2951-2) 138 mmol/L 134-144 Potassium (test code = 2823-3) 5.4 mmol/L 3.5-5.2 H Chloride (test code = 2075-0) 96 mmol/L 96-106 Carbon Dioxide, Total (test 29 mmol/L -29 code = 2027-9) Calcium (test code = 78874-5) 9.2 mg/dL 8.7-10.2 Protein, Total (test code = 6.2 g/dL 6.0-8.5 2885-2) Albumin (test code = 1751-7) 3.4 g/dL 4.0-5.0 L Globulin, Total (test code = 2.8 g/dL 1.5-4.5 50666-3) A/G Ratio (test code = 1759-0) 1.2 1.2-2.2 Bilirubin, Total (test code = 0.5 mg/dL 0.0-1.2 1975-2) Alkaline Phosphatase (test 112 IU/L 39-117 code = 6768-6) AST (SGOT) (test code = 21 IU/L 0-40 1920-8) ALT (SGPT) (test code = 31 IU/L 0-44 1742-6) [facility] Description: Comp. Metabolic Panel (14)2020-03-07 06:49:00 Test Item Value Reference Range Interpretation Comments Glucose (test code = 2345-7) 441 mg/dL 65-99 H BUN (test code = 3094-0) 52 mg/dL 6-24 H Creatinine (test code = 2.05 mg/dL 0.76-1.27 H 2160-0) eGFR If NonAfricn Am (test 38 mL/min/1.73 >59 L code = 04924-9) eGFR If Africn Am (test code = 44 mL/min/1.73 >59 L 71324-5) BUN/Creatinine Ratio (test 25 9-20 H code = 3097-3) Sodium (test code = 2951-2) 138 mmol/L 134-144 Potassium (test code = 2823-3) 5.4 mmol/L 3.5-5.2 H Chloride (test code = 2075-0) 96 mmol/L 96-106 Carbon Dioxide, Total (test 29 mmol/L 20-29 code = 8-9) Calcium (test code = 81639-6) 9.2 mg/dL 8.7-10.2 Protein, Total (test code = 6.2 g/dL 6.0-8.5 2885-2) Albumin (test code = 1751-7) 3.4 g/dL 4.0-5.0 L Globulin, Total (test code = 2.8 g/dL 1.5-4.5 44616-9) A/G Ratio (test code = 1759-0) 1.2 1.2-2.2 Bilirubin, Total (test code = 0.5 mg/dL 0.0-1.2 1974-) Alkaline Phosphatase (test 112 IU/L 39-117 code = 6768-6) AST (SGOT) (test code = 21 IU/L 0-40 1920-8) ALT (SGPT) (test code = 31 IU/L 0-44 1742-6) [facility] Description: Comp. Metabolic Panel (14)2020-03-07 06:49:00 Test Item Value Reference Range Interpretation Comments Glucose (test code = 2345-7) 441 mg/dL 65-99 H BUN (test code = 3094-0) 52 mg/dL 6-24 H Creatinine (test code = 2.05 mg/dL 0.76-1.27 H 2160-0) eGFR If NonAfricn Am (test 38 mL/min/1.73 >59 L code = 83350-2) eGFR If Africn Am (test code = 44 mL/min/1.73 >59 L 62476-8) BUN/Creatinine Ratio (test 25 9-20 H code = 3097-3) Sodium (test code = 2951-2) 138 mmol/L 134-144 Potassium (test code = 2823-3) 5.4 mmol/L 3.5-5.2 H Chloride (test code = 2075-0) 96 mmol/L 96-106 Carbon Dioxide, Total (test 29 mmol/L 20-29 code = 8-9) Calcium (test code = 75386-5) 9.2 mg/dL 8.7-10.2 Protein, Total (test code = 6.2 g/dL 6.0-8.5 2885-2) Albumin (test code = 1751-7) 3.4 g/dL 4.0-5.0 L Globulin, Total (test code = 2.8 g/dL 1.5-4.5 16308-4) A/G Ratio (test code = 1759-0) 1.2 1.2-2.2 Bilirubin, Total (test code = 0.5 mg/dL 0.0-1.2 1974-) Alkaline Phosphatase (test 112 IU/L 39-117 code = 6768-6) AST (SGOT) (test code = 21 IU/L 0-40 1920-8) ALT (SGPT) (test code = 31 IU/L 0-44 1742-6) [facility] Description: Comp. Metabolic Panel (2020-03-07 06:49:00 Test Item Value Reference Range Interpretation Comments Glucose (test code = 2345-7) 441 mg/dL 65-99 H BUN (test code = 3094-0) 52 mg/dL 6-24 H Creatinine (test code = 2.05 mg/dL 0.76-1.27 H 2160-0) eGFR If NonAfricn Am (test 38 mL/min/1.73 >59 L code = 34449-7) eGFR If Africn Am (test code = 44 mL/min/1.73 >59 L 98584-1) BUN/Creatinine Ratio (test 25 9-20 H code = 3097-3) Sodium (test code = 2951-2) 138 mmol/L 134-144 Potassium (test code = 2823-3) 5.4 mmol/L 3.5-5.2 H Chloride (test code = 2075-0) 96 mmol/L 96-106 Carbon Dioxide, Total (test 29 mmol/L 20-29 code = 8-9) Calcium (test code = 87742-8) 9.2 mg/dL 8.7-10.2 Protein, Total (test code = 6.2 g/dL 6.0-8.5 2885-2) Albumin (test code = 1751-7) 3.4 g/dL 4.0-5.0 L Globulin, Total (test code = 2.8 g/dL 1.5-4.5 12906-8) A/G Ratio (test code = 1759-0) 1.2 1.2-2.2 Bilirubin, Total (test code = 0.5 mg/dL 0.0-1.2 1975-2) Alkaline Phosphatase (test 112 IU/L 39-117 code = 6768-6) AST (SGOT) (test code = 21 IU/L 0-40 1920-8) ALT (SGPT) (test code = 31 IU/L 0-44 1742-6) [facility]/[id number] 07:17:11Tyshawn Serra MD 2019 7:47 AMIncision/DrainageDate/Time: 2019 7:45 AMPerformed by:Tyshawn Serra MDAuthorized by: Tyshawn Serra MD Consent: Verbal consent obtained.Risks andbenefits: risks, benefits and alternatives were discussedConsent given by: patientPatient identity confirmed: verbally with patient and arm bandType: abscessLocation: L buttock.Anesthesia: local infiltr ation Anesthesia:Local Anesthetic: lidocaine 1% without epinephrineScalpel size: 11Incision type: single straightComplexity: complex (Loculations broken.)Drainage: serosanguinousDrainage amount: moderatePacking material: 1/4 in iodoform gauzePatient tolerance: Patient tolerated the procedure well withno immediate complicationsImmediate Post-Procedure Note Assistants to the procedure: NonePre-procedure diagnosis: abscessPost-procedure diagnosis: sameProcedures Performed: Incision/DrainageSpecimens removed: NoneEstimated blood loss (mL): NoneComplications: NoneType of anesthesia: NoneGrafts or Implan ts: [facility] Description: Hemoglobin A1c/Hemoglobin.total in [id number] 16:33:00 Test Item Value Reference Range Interpretation Comments Hemoglobin A1c (test code 13.0 % 4.8-5.6 H = 4548-4) . Prediabetes: 5. 7 - 6.4 Diabete s: >6.4 Glycemi c control for niall lts with diabetes: <7.0

P erforme d by:
[facility] ()

[facility] Description: Hemoglobin A1c/Hemoglobin.total in Blood 2019-11-10 16:33:00 Test Item Value Reference Range Interpretation Comments Hemoglobin A1c (test code 13.0 % 4.8-5.6 H = 4548-4) . Prediabetes: 5. 7 - 6.4 Diabete s: >6.4 Glycemi c control for niall lts with diabetes: <7.0

P erforme d by:
[facility] ([place]

[facility] Description: Hemoglobin A1c/Hemoglobin.total in Blood 2019-11-10 16:33:00 Test Item Value Reference Range Interpretation Comments Hemoglobin A1c (test code 13.0 % 4.8-5.6 H = 4548-4) . Prediabetes: 5. 7 - 6.4 Diabete s: >6.4 Glycemi c control for niall lts with diabetes: <7.0

P erforme d by:
[facility]

[facility] Description: Hemoglobin A1c/Hemoglobin.total in Blood 2019-11-10 16:33:00 Test Item Value Reference Range Interpretation Comments Hemoglobin A1c (test code 13.0 % 4.8-5.6 H = 4548-4) . Prediabetes: 5. 7 - 6.4 Diabete s: >6.4 Glycemi c control for niall lts with diabetes: <7.0

P erforme d by:
[facility]

[facility] Description: Hemoglobin A1c/Hemoglobin.total in Blood 2019-11-10 16:33:00 Test Item Value Reference Range Interpretation Comments Hemoglobin A1c (test code 13.0 % 4.8-5.6 H = 4548-4) . Prediabetes: 5. 7 - 6.4 Diabete s: >6.4 Glycemi c control for niall lts with diabetes: <7.0

P erforme d by:
[facility]

[facility]: Hemoglobin A1c/Hemoglobin.total in Blood 2019-11-10 16:33:00 Test Item Value Reference Range Interpretation Comments Hemoglobin A1c (test code 13.0 % 4.8-5.6 H = 4548-4) . Prediabetes: 5. 7 - 6.4 Diabete s: >6.4 Glycemi c control for niall lts with diabetes: <7.0

P erforme d by:
[facility]

[facility] Description: Hemoglobin A1c/Hemoglobin.total in Blood 2019-11-10 16:33:00 Test Item Value Reference Range Interpretation Comments Hemoglobin A1c (test code 13.0 % 4.8-5.6 H = 4548-4) . Prediabetes: 5. 7 - 6.4 Diabete s: >6.4 Glycemi c control for niall lts with diabetes: <7.0

P erforme d by:
[facility]

[facility] Description: Hemoglobin A1c/Hemoglobin.total in Blood 2019-11-10 16:33:00 Test Item Value Reference Range Interpretation Comments Hemoglobin A1c (test code 13.0 % 4.8-5.6 H = 4548-4) . Prediabetes: 5. 7 - 6.4 Diabete s: >6.4 Glycemi c control for niall lts with diabetes: <7.0

P erforme d by:
[facility]

[facility] Description: Hemoglobin A1c/Hemoglobin.total in Blood 2019-11-10 16:33:00 Test Item Value Reference Range Interpretation Comments Hemoglobin A1c (test code 13.0 % 4.8-5.6 H = 4548-4) . Prediabetes: 5. 7 - 6.4 Diabete s: >6.4 Glycemi c control for niall lts with diabetes: <7.0

P erforme d by:
[facility]

[facility]: Hemoglobin A1c/Hemoglobin.total in Blood 2019-11-10 16:33:00 Test Item Value Reference Range Interpretation Comments Hemoglobin A1c (test code 13.0 % 4.8-5.6 H = 4548-4) . Prediabetes: 5. 7 - 6.4 Diabete s: >6.4 Glycemi c control for niall lts with diabetes: <7.0

P erforme d by:
[facility]

[facility] Description: Hemoglobin A1c/Hemoglobin.total in Blood 2019-11-10 16:33:00 Test Item Value Reference Range Interpretation Comments Hemoglobin A1c (test code 13.0 % 4.8-5.6 H = 4548-4) . Prediabetes: 5. 7 - 6.4 Diabete s: >6.4 Glycemi c control for niall lts with diabetes: <7.0

P erforme d by:
[facility]

[facility] Description: Hemoglobin A1c/Hemoglobin.total in Blood 2019-11-10 16:33:00 Test Item Value Reference Range Interpretation Comments Hemoglobin A1c (test code 13.0 % 4.8-5.6 H = 4548-4) . Prediabetes: 5. 7 - 6.4 Diabete s: >6.4 Glycemi c control for niall lts with diabetes: <7.0

P erforme d by:
[facility] ([place]

[facility] Description: Hemoglobin A1c/Hemoglobin.total in Blood 2019-11-10 16:33:00 Test Item Value Reference Range Interpretation Comments Hemoglobin A1c (test code 13.0 % 4.8-5.6 H = 4548-4) . Prediabetes: 5. 7 - 6.4 Diabete s: >6.4 Glycemi c control for niall lts with diabetes: <7.0

P erforme d by:
[facility]

[facility]: Hemoglobin A1c/Hemoglobin.total in Blood 2019-11-10 16:33:00 Test Item Value Reference Range Interpretation Comments Hemoglobin A1c (test code 13.0 % 4.8-5.6 H = 4548-4) . Prediabetes: 5. 7 - 6.4 Diabete s: >6.4 Glycemi c control for niall lts with diabetes: <7.0

P erforme d by:
[facility]

[facility] Description: Hemoglobin A1c/Hemoglobin.total in Blood 2019-11-10 16:33:00 Test Item Value Reference Range Interpretation Comments Hemoglobin A1c (test code 13.0 % 4.8-5.6 H = 4548-4) . Prediabetes: 5. 7 - 6.4 Diabete s: >6.4 Glycemi c control for niall lts with diabetes: <7.0

P erforme d by:
[facility]

[facility] Description: Hemoglobin A1c/Hemoglobin.total in Blood 2019-11-10 16:33:00 Test Item Value Reference Range Interpretation Comments Hemoglobin A1c (test code 13.0 % 4.8-5.6 H = 4548-4) . Prediabetes: 5. 7 - 6.4 Diabete s: >6.4 Glycemi c control for niall lts with diabetes: <7.0

P erforme d by:
[facility]

[facility] Description: Hemoglobin A1c/Hemoglobin.total in Blood 2019-11-10 16:33:00 Test Item Value Reference Range Interpretation Comments Hemoglobin A1c (test code 13.0 % 4.8-5.6 H = 4548-4) . Prediabetes: 5. 7 - 6.4 Diabete s: >6.4 Glycemi c control for niall lts with diabetes: <7.0

P erforme d by:
[facility]

[facility] Description: Comp. Metabolic Panel (14)2019-11-10 03:19:00 Test Item Value Reference Range Interpretation Comments Glucose (test code = 2345-7) 439 mg/dL 65-99 H BUN (test code = 3094-0) 49 mg/dL 6-24 H Creatinine (test code = 2.17 mg/dL 0.76-1.27 H 2160-0) eGFR If NonAfricn Am (test 35 mL/min/1.73 >59 L code = 86153-3) eGFR If Africn Am (test code = 41 mL/min/1.73 >59 L 90620-3) BUN/Creatinine Ratio (test 23 9-20 H code = 3097-3) Sodium (test code = 2951-2) 137 mmol/L 134-144 Potassium (test code = 2823-3) 4.9 mmol/L 3.5-5.2 Chloride (test code = 2075-0) 93 mmol/L 96-106 L Carbon Dioxide, Total (test 29 mmol/L 20-29 code = 8-9) Calcium (test code = 86745-3) 9.5 mg/dL 8.7-10.2 Protein, Total (test code = 6.5 g/dL 6.0-8.5 2885-2) Albumin (test code = 1751-7) 3.6 g/dL 4.0-5.0 L Globulin, Total (test code = 2.9 g/dL 1.5-4.5 80225-2) A/G Ratio (test code = 1759-0) 1.2 1.2-2.2 Bilirubin, Total (test code = 0.5 mg/dL 0.0-1.2 1975-2) Alkaline Phosphatase (test 103 IU/L 39-117 code = 6768-6) AST (SGOT) (test code = 20 IU/L 0-40 1920-8) ALT (SGPT) (test code = 30 IU/L 0-44 1742-6) [facility]: Lipid [id number] 03:19:00 Test Item Value Reference Range Interpretation Comments Cholesterol, Total (test code = 231 mg/dL 100-199 H 3-3) Triglycerides (test code = 2571-8) 215 mg/dL 0-149 H HDL Cholesterol (test code = 34 mg/dL >39 L 5-9) VLDL Cholesterol Renuka (test code = 43 mg/dL 5-40 H 95027-6) LDL Cholesterol Calc (test code = 154 mg/dL 0-99 H 47757-2) Comment: (test code = 13661-5) [facility]: Comp. Metabolic Panel (14)2019-11-10 03:19:00 Test Item Value Reference Range Interpretation Comments Glucose (test code = 2345-7) 439 mg/dL 65-99 H BUN (test code = 3094-0) 49 mg/dL 6-24 H Creatinine (test code = 2.17 mg/dL 0.76-1.27 H 2160-0) eGFR If NonAfricn Am (test 35 mL/min/1.73 >59 L code = 94899-1) eGFR If Africn Am (test code = 41 mL/min/1.73 >59 L 96307-8) BUN/Creatinine Ratio (test 23 9-20 H code = 3097-3) Sodium (test code = 2951-2) 137 mmol/L 134-144 Potassium (test code = 2823-3) 4.9 mmol/L 3.5-5.2 Chloride (test code = 2075-0) 93 mmol/L 96-106 L Carbon Dioxide, Total (test 29 mmol/L 20-29 code = 8-9) Calcium (test code = 01397-7) 9.5 mg/dL 8.7-10.2 Protein, Total (test code = 6.5 g/dL 6.0-8.5 2885-2) Albumin (test code = 1751-7) 3.6 g/dL 4.0-5.0 L Globulin, Total (test code = 2.9 g/dL 1.5-4.5 90109-3) A/G Ratio (test code = 1759-0) 1.2 1.2-2.2 Bilirubin, Total (test code = 0.5 mg/dL 0.0-1.2 1974-2) Alkaline Phosphatase (test 103 IU/L 39-117 code = 6768-6) AST (SGOT) (test code = 20 IU/L 0-40 1920-8) ALT (SGPT) (test code = 30 IU/L 0-44 1742-6) [facility] Description: Lipid [id number] 03:19:00 Test Item Value Reference Range Interpretation Comments Cholesterol, Total (test code = 231 mg/dL 100-199 H 2092-3) Triglycerides (test code = 2571-8) 215 mg/dL 0-149 H HDL Cholesterol (test code = 34 mg/dL >39 L 9) VLDL Cholesterol Renuka (test code = 43 mg/dL 5-40 H 38439-4) LDL Cholesterol Calc (test code = 154 mg/dL 0-99 H 24624-5) Comment: (test code = 54338-6) [facility]: Comp. Metabolic Panel (14)2019-11-10 03:19:00 Test Item Value Reference Range Interpretation Comments Glucose (test code = 2345-7) 439 mg/dL 65-99 H BUN (test code = 3094-0) 49 mg/dL 6-24 H Creatinine (test code = 2.17 mg/dL 0.76-1.27 H 2160-0) eGFR If NonAfricn Am (test 35 mL/min/1.73 >59 L code = 23912-8) eGFR If Africn Am (test code = 41 mL/min/1.73 >59 L 59832-5) BUN/Creatinine Ratio (test 23 9-20 H code = 3097-3) Sodium (test code = 2951-2) 137 mmol/L 134-144 Potassium (test code = 2823-3) 4.9 mmol/L 3.5-5.2 Chloride (test code = 2075-0) 93 mmol/L 96-106 L Carbon Dioxide, Total (test 29 mmol/L 20-29 code = 8-9) Calcium (test code = 11560-3) 9.5 mg/dL 8.7-10.2 Protein, Total (test code = 6.5 g/dL 6.0-8.5 2885-2) Albumin (test code = 1751-7) 3.6 g/dL 4.0-5.0 L Globulin, Total (test code = 2.9 g/dL 1.5-4.5 88811-8) A/G Ratio (test code = 1759-0) 1.2 1.2-2.2 Bilirubin, Total (test code = 0.5 mg/dL 0.0-1.2 1975-2) Alkaline Phosphatase (test 103 IU/L 39-117 code = 6768-6) AST (SGOT) (test code = 20 IU/L 0-40 1920-8) ALT (SGPT) (test code = 30 IU/L 0-44 1742-6) [facility] Description: Lipid [id number] 03:19:00 Test Item Value Reference Range Interpretation Comments Cholesterol, Total (test code = 231 mg/dL 100-199 H 2092-3) Triglycerides (test code = 2571-8) 215 mg/dL 0-149 H HDL Cholesterol (test code = 34 mg/dL >39 L 2084-9) VLDL Cholesterol Renuka (test code = 43 mg/dL 5-40 H 55632-6) LDL Cholesterol Calc (test code = 154 mg/dL 0-99 H 50928-9) Comment: (test code = 65804-2) [facility] Description: Comp. Metabolic Panel (14)2019-11-10 03:19:00 Test Item Value Reference Range Interpretation Comments Glucose (test code = 2345-7) 439 mg/dL 65-99 H BUN (test code = 3094-0) 49 mg/dL 6-24 H Creatinine (test code = 2.17 mg/dL 0.76-1.27 H 2160-0) eGFR If NonAfricn Am (test 35 mL/min/1.73 >59 L code = 33526-3) eGFR If Africn Am (test code = 41 mL/min/1.73 >59 L 70816-3) BUN/Creatinine Ratio (test 23 9-20 H code = 3097-3) Sodium (test code = 2951-2) 137 mmol/L 134-144 Potassium (test code = 2823-3) 4.9 mmol/L 3.5-5.2 Chloride (test code = 2075-0) 93 mmol/L 96-106 L Carbon Dioxide, Total (test 29 mmol/L 20-29 code = 2027-9) Calcium (test code = 64409-1) 9.5 mg/dL 8.7-10.2 Protein, Total (test code = 6.5 g/dL 6.0-8.5 2885-2) Albumin (test code = 1751-7) 3.6 g/dL 4.0-5.0 L Globulin, Total (test code = 2.9 g/dL 1.5-4.5 63253-9) A/G Ratio (test code = 1759-0) 1.2 1.2-2.2 Bilirubin, Total (test code = 0.5 mg/dL 0.0-1.2 1974-2) Alkaline Phosphatase (test 103 IU/L 39-117 code = 6768-6) AST (SGOT) (test code = 20 IU/L 0-40 1920-8) ALT (SGPT) (test code = 30 IU/L 0-44 1742-6) [facility] Description: Lipid [id number] 03:19:00 Test Item Value Reference Range Interpretation Comments Cholesterol, Total (test code = 231 mg/dL 100-199 H 2092-3) Triglycerides (test code = 2571-8) 215 mg/dL 0-149 H HDL Cholesterol (test code = 34 mg/dL >39 L 2084-9) VLDL Cholesterol Renuka (test code = 43 mg/dL 5-40 H 86943-7) LDL Cholesterol Calc (test code = 154 mg/dL 0-99 H 53525-6) Comment: (test code = 32890-6) [facility] Description: Comp. Metabolic Panel ()2019-11-10 03:19:00 Test Item Value Reference Range Interpretation Comments Glucose (test code = 2345-7) 439 mg/dL 65-99 H BUN (test code = 3094-0) 49 mg/dL 6-24 H Creatinine (test code = 2.17 mg/dL 0.76-1.27 H 2160-0) eGFR If NonAfricn Am (test 35 mL/min/1.73 >59 L code = 29679-7) eGFR If Africn Am (test code = 41 mL/min/1.73 >59 L 47105-8) BUN/Creatinine Ratio (test 23 9-20 H code = 3097-3) Sodium (test code = 2951-2) 137 mmol/L 134-144 Potassium (test code = 2823-3) 4.9 mmol/L 3.5-5.2 Chloride (test code = 2075-0) 93 mmol/L 96-106 L Carbon Dioxide, Total (test 29 mmol/L 20-29 code = 2027-9) Calcium (test code = 90684-3) 9.5 mg/dL 8.7-10.2 Protein, Total (test code = 6.5 g/dL 6.0-8.5 2885-2) Albumin (test code = 1751-7) 3.6 g/dL 4.0-5.0 L Globulin, Total (test code = 2.9 g/dL 1.5-4.5 45596-4) A/G Ratio (test code = 1759-0) 1.2 1.2-2.2 Bilirubin, Total (test code = 0.5 mg/dL 0.0-1.2 1975-2) Alkaline Phosphatase (test 103 IU/L 39-117 code = 6768-6) AST (SGOT) (test code = 20 IU/L 0-40 1920-8) ALT (SGPT) (test code = 30 IU/L 0-44 1742-6) [facility] Description: Lipid [id number] 03:19:00 Test Item Value Reference Range Interpretation Comments Cholesterol, Total (test code = 231 mg/dL 100-199 H 2093-3) Triglycerides (test code = 2571-8) 215 mg/dL 0-149 H HDL Cholesterol (test code = 34 mg/dL >39 L 5-9) VLDL Cholesterol Renuka (test code = 43 mg/dL 5-40 H 33054-4) LDL Cholesterol Calc (test code = 154 mg/dL 0-99 H 33979-4) Comment: (test code = 27696-5) [facility] Description: Comp. Metabolic Panel (14)2019-11-10 03:19:00 Test Item Value Reference Range Interpretation Comments Glucose (test code = 2345-7) 439 mg/dL 65-99 H BUN (test code = 3094-0) 49 mg/dL 6-24 H Creatinine (test code = 2.17 mg/dL 0.76-1.27 H 2160-0) eGFR If NonAfricn Am (test 35 mL/min/1.73 >59 L code = 49682-3) eGFR If Africn Am (test code = 41 mL/min/1.73 >59 L 29168-2) BUN/Creatinine Ratio (test 23 9-20 H code = 3097-3) Sodium (test code = 2951-2) 137 mmol/L 134-144 Potassium (test code = 2823-3) 4.9 mmol/L 3.5-5.2 Chloride (test code = 2075-0) 93 mmol/L 96-106 L Carbon Dioxide, Total (test 29 mmol/L 20-29 code = 2028-9) Calcium (test code = 66357-8) 9.5 mg/dL 8.7-10.2 Protein, Total (test code = 6.5 g/dL 6.0-8.5 2885-2) Albumin (test code = 1751-7) 3.6 g/dL 4.0-5.0 L Globulin, Total (test code = 2.9 g/dL 1.5-4.5 49246-0) A/G Ratio (test code = 1759-0) 1.2 1.2-2.2 Bilirubin, Total (test code = 0.5 mg/dL 0.0-1.2 1975-2) Alkaline Phosphatase (test 103 IU/L 39-117 code = 6768-6) AST (SGOT) (test code = 20 IU/L 0-40 1920-8) ALT (SGPT) (test code = 30 IU/L 0-44 1742-6) [facility] Description: Lipid [id number] 03:19:00 Test Item Value Reference Range Interpretation Comments Cholesterol, Total (test code = 231 mg/dL 100-199 H 2093-3) Triglycerides (test code = 2571-8) 215 mg/dL 0-149 H HDL Cholesterol (test code = 34 mg/dL >39 L 5-9) VLDL Cholesterol Renuka (test code = 43 mg/dL 5-40 H 66180-7) LDL Cholesterol Calc (test code = 154 mg/dL 0-99 H 64592-8) Comment: (test code = 49314-3) [facility] Description: Comp. Metabolic Panel (14)2019-11-10 03:19:00 Test Item Value Reference Range Interpretation Comments Glucose (test code = 2345-7) 439 mg/dL 65-99 H BUN (test code = 3094-0) 49 mg/dL 6-24 H Creatinine (test code = 2.17 mg/dL 0.76-1.27 H 2160-0) eGFR If NonAfricn Am (test 35 mL/min/1.73 >59 L code = 21038-0) eGFR If Africn Am (test code = 41 mL/min/1.73 >59 L 07772-8) BUN/Creatinine Ratio (test 23 9-20 H code = 3097-3) Sodium (test code = 2951-2) 137 mmol/L 134-144 Potassium (test code = 2823-3) 4.9 mmol/L 3.5-5.2 Chloride (test code = 2075-0) 93 mmol/L 96-106 L Carbon Dioxide, Total (test 29 mmol/L 20-29 code = 2028-9) Calcium (test code = 36809-9) 9.5 mg/dL 8.7-10.2 Protein, Total (test code = 6.5 g/dL 6.0-8.5 2885-2) Albumin (test code = 1751-7) 3.6 g/dL 4.0-5.0 L Globulin, Total (test code = 2.9 g/dL 1.5-4.5 22831-7) A/G Ratio (test code = 1759-0) 1.2 1.2-2.2 Bilirubin, Total (test code = 0.5 mg/dL 0.0-1.2 1974-2) Alkaline Phosphatase (test 103 IU/L 39-117 code = 6768-6) AST (SGOT) (test code = 20 IU/L 0-40 1920-8) ALT (SGPT) (test code = 30 IU/L 0-44 1742-6) [facility] Description: Lipid [id number] 03:19:00 Test Item Value Reference Range Interpretation Comments Cholesterol, Total (test code = 231 mg/dL 100-199 H 2092-3) Triglycerides (test code = 2571-8) 215 mg/dL 0-149 H HDL Cholesterol (test code = 34 mg/dL >39 L 2084-9) VLDL Cholesterol Renuka (test code = 43 mg/dL 5-40 H 99579-3) LDL Cholesterol Calc (test code = 154 mg/dL 0-99 H 93846-8) Comment: (test code = 85574-3) [facility] Description: Comp. Metabolic Panel ()2019-11-10 03:19:00 Test Item Value Reference Range Interpretation Comments Glucose (test code = 2345-7) 439 mg/dL 65-99 H BUN (test code = 3094-0) 49 mg/dL 6-24 H Creatinine (test code = 2.17 mg/dL 0.76-1.27 H 2160-0) eGFR If NonAfricn Am (test 35 mL/min/1.73 >59 L code = 45072-6) eGFR If Africn Am (test code = 41 mL/min/1.73 >59 L 87554-4) BUN/Creatinine Ratio (test 23 9-20 H code = 3097-3) Sodium (test code = 2951-2) 137 mmol/L 134-144 Potassium (test code = 2823-3) 4.9 mmol/L 3.5-5.2 Chloride (test code = 2075-0) 93 mmol/L 96-106 L Carbon Dioxide, Total (test 29 mmol/L 20-29 code = 8-9) Calcium (test code = 36537-3) 9.5 mg/dL 8.7-10.2 Protein, Total (test code = 6.5 g/dL 6.0-8.5 2885-2) Albumin (test code = 1751-7) 3.6 g/dL 4.0-5.0 L Globulin, Total (test code = 2.9 g/dL 1.5-4.5 45180-9) A/G Ratio (test code = 1759-0) 1.2 1.2-2.2 Bilirubin, Total (test code = 0.5 mg/dL 0.0-1.2 1974-2) Alkaline Phosphatase (test 103 IU/L 39-117 code = 6768-6) AST (SGOT) (test code = 20 IU/L 0-40 1920-8) ALT (SGPT) (test code = 30 IU/L 0-44 1742-6) [facility] Description: Lipid [id number] 03:19:00 Test Item Value Reference Range Interpretation Comments Cholesterol, Total (test code = 231 mg/dL 100-199 H 2092-3) Triglycerides (test code = 2571-8) 215 mg/dL 0-149 H HDL Cholesterol (test code = 34 mg/dL >39 L 2084-9) VLDL Cholesterol Renuka (test code = 43 mg/dL 5-40 H 36021-3) LDL Cholesterol Calc (test code = 154 mg/dL 0-99 H 27123-3) Comment: (test code = 62534-2) [facility] (14)2019-11-10 03:19:00 Test Item Value Reference Range Interpretation Comments Glucose (test code = 2345-7) 439 mg/dL 65-99 H BUN (test code = 3094-0) 49 mg/dL 6-24 H Creatinine (test code = 2.17 mg/dL 0.76-1.27 H 2160-0) eGFR If NonAfricn Am (test 35 mL/min/1.73 >59 L code = 40641-5) eGFR If Africn Am (test code = 41 mL/min/1.73 >59 L 48275-5) BUN/Creatinine Ratio (test 23 9-20 H code = 3097-3) Sodium (test code = 2951-2) 137 mmol/L 134-144 Potassium (test code = 2823-3) 4.9 mmol/L 3.5-5.2 Chloride (test code = 2075-0) 93 mmol/L 96-106 L Carbon Dioxide, Total (test 29 mmol/L 20-29 code = 8-9) Calcium (test code = 47349-0) 9.5 mg/dL 8.7-10.2 Protein, Total (test code = 6.5 g/dL 6.0-8.5 2885-2) Albumin (test code = 1751-7) 3.6 g/dL 4.0-5.0 L Globulin, Total (test code = 2.9 g/dL 1.5-4.5 16723-5) A/G Ratio (test code = 1759-0) 1.2 1.2-2.2 Bilirubin, Total (test code = 0.5 mg/dL 0.0-1.2 1975-2) Alkaline Phosphatase (test 103 IU/L 39-117 code = 6768-6) AST (SGOT) (test code = 20 IU/L 0-40 1920-8) ALT (SGPT) (test code = 30 IU/L 0-44 1742-6) [facility] Description: Lipid [id number] 03:19:00 Test Item Value Reference Range Interpretation Comments Cholesterol, Total (test code = 231 mg/dL 100-199 H 3-3) Triglycerides (test code = 2571-8) 215 mg/dL 0-149 H HDL Cholesterol (test code = 34 mg/dL >39 L 2085-9) VLDL Cholesterol Renuka (test code = 43 mg/dL 5-40 H 68008-4) LDL Cholesterol Calc (test code = 154 mg/dL 0-99 H 10719-7) Comment: (test code = 85442-9) [facility] Description: Comp. Metabolic Panel ()2019-11-10 03:19:00 Test Item Value Reference Range Interpretation Comments Glucose (test code = 2345-7) 439 mg/dL 65-99 H BUN (test code = 3094-0) 49 mg/dL 6-24 H Creatinine (test code = 2.17 mg/dL 0.76-1.27 H 2160-0) eGFR If NonAfricn Am (test 35 mL/min/1.73 >59 L code = 85741-7) eGFR If Africn Am (test code = 41 mL/min/1.73 >59 L 62844-8) BUN/Creatinine Ratio (test 23 9-20 H code = 3097-3) Sodium (test code = 2951-2) 137 mmol/L 134-144 Potassium (test code = 2823-3) 4.9 mmol/L 3.5-5.2 Chloride (test code = 2075-0) 93 mmol/L 96-106 L Carbon Dioxide, Total (test 29 mmol/L 20-29 code = 8-9) Calcium (test code = 72425-1) 9.5 mg/dL 8.7-10.2 Protein, Total (test code = 6.5 g/dL 6.0-8.5 2885-2) Albumin (test code = 1751-7) 3.6 g/dL 4.0-5.0 L Globulin, Total (test code = 2.9 g/dL 1.5-4.5 00439-1) A/G Ratio (test code = 1759-0) 1.2 1.2-2.2 Bilirubin, Total (test code = 0.5 mg/dL 0.0-1.2 1975-2) Alkaline Phosphatase (test 103 IU/L 39-117 code = 6768-6) AST (SGOT) (test code = 20 IU/L 0-40 1920-8) ALT (SGPT) (test code = 30 IU/L 0-44 1742-6) [facility] Description: Lipid [id number] 03:19:00 Test Item Value Reference Range Interpretation Comments Cholesterol, Total (test code = 231 mg/dL 100-199 H 2093-3) Triglycerides (test code = 2571-8) 215 mg/dL 0-149 H HDL Cholesterol (test code = 34 mg/dL >39 L 2085-9) VLDL Cholesterol Renuka (test code = 43 mg/dL 5-40 H 06110-7) LDL Cholesterol Calc (test code = 154 mg/dL 0-99 H 87577-8) Comment: (test code = 77669-2) [facility] Description: Comp. Metabolic Panel ()2019-11-10 03:19:00 Test Item Value Reference Range Interpretation Comments Glucose (test code = 2345-7) 439 mg/dL 65-99 H BUN (test code = 3094-0) 49 mg/dL 6-24 H Creatinine (test code = 2.17 mg/dL 0.76-1.27 H 2160-0) eGFR If NonAfricn Am (test 35 mL/min/1.73 >59 L code = 16037-8) eGFR If Africn Am (test code = 41 mL/min/1.73 >59 L 79076-3) BUN/Creatinine Ratio (test 23 9-20 H code = 3097-3) Sodium (test code = 2951-2) 137 mmol/L 134-144 Potassium (test code = 2823-3) 4.9 mmol/L 3.5-5.2 Chloride (test code = 2075-0) 93 mmol/L 96-106 L Carbon Dioxide, Total (test 29 mmol/L 20-29 code = 8-9) Calcium (test code = 46417-3) 9.5 mg/dL 8.7-10.2 Protein, Total (test code = 6.5 g/dL 6.0-8.5 2885-2) Albumin (test code = 1751-7) 3.6 g/dL 4.0-5.0 L Globulin, Total (test code = 2.9 g/dL 1.5-4.5 95573-6) A/G Ratio (test code = 1759-0) 1.2 1.2-2.2 Bilirubin, Total (test code = 0.5 mg/dL 0.0-1.2 1975-2) Alkaline Phosphatase (test 103 IU/L 39-117 code = 6768-6) AST (SGOT) (test code = 20 IU/L 0-40 1920-8) ALT (SGPT) (test code = 30 IU/L 0-44 1742-6) [facility] Description: Lipid [id number] 03:19:00 Test Item Value Reference Range Interpretation Comments Cholesterol, Total (test code = 231 mg/dL 100-199 H 2093-3) Triglycerides (test code = 2571-8) 215 mg/dL 0-149 H HDL Cholesterol (test code = 34 mg/dL >39 L 5-9) VLDL Cholesterol Renuka (test code = 43 mg/dL 5-40 H 99078-5) LDL Cholesterol Calc (test code = 154 mg/dL 0-99 H 25784-4) Comment: (test code = 85210-5) [facility] Description: Comp. Metabolic Panel ()2019-11-10 03:19:00 Test Item Value Reference Range Interpretation Comments Glucose (test code = 2345-7) 439 mg/dL 65-99 H BUN (test code = 3094-0) 49 mg/dL 6-24 H Creatinine (test code = 2.17 mg/dL 0.76-1.27 H 2160-0) eGFR If NonAfricn Am (test 35 mL/min/1.73 >59 L code = 98724-1) eGFR If Africn Am (test code = 41 mL/min/1.73 >59 L 72623-4) BUN/Creatinine Ratio (test 23 9-20 H code = 3097-3) Sodium (test code = 2951-2) 137 mmol/L 134-144 Potassium (test code = 2823-3) 4.9 mmol/L 3.5-5.2 Chloride (test code = 2075-0) 93 mmol/L 96-106 L Carbon Dioxide, Total (test 29 mmol/L 20-29 code = 8-9) Calcium (test code = 84833-9) 9.5 mg/dL 8.7-10.2 Protein, Total (test code = 6.5 g/dL 6.0-8.5 2885-2) Albumin (test code = 1751-7) 3.6 g/dL 4.0-5.0 L Globulin, Total (test code = 2.9 g/dL 1.5-4.5 10335-9) A/G Ratio (test code = 1759-0) 1.2 1.2-2.2 Bilirubin, Total (test code = 0.5 mg/dL 0.0-1.2 1975-2) Alkaline Phosphatase (test 103 IU/L 39-117 code = 6768-6) AST (SGOT) (test code = 20 IU/L 0-40 1920-8) ALT (SGPT) (test code = 30 IU/L 0-44 1742-6) [facility] Description: Lipid [id number] 03:19:00 Test Item Value Reference Range Interpretation Comments Cholesterol, Total (test code = 231 mg/dL 100-199 H 2092-3) Triglycerides (test code = 2571-8) 215 mg/dL 0-149 H HDL Cholesterol (test code = 34 mg/dL >39 L 2084-9) VLDL Cholesterol Renuka (test code = 43 mg/dL 5-40 H 87718-2) LDL Cholesterol Calc (test code = 154 mg/dL 0-99 H 82315-0) Comment: (test code = 25084-4) [facility] Description: Comp. Metabolic Panel ()2019-11-10 03:19:00 Test Item Value Reference Range Interpretation Comments Glucose (test code = 2345-7) 439 mg/dL 65-99 H BUN (test code = 3094-0) 49 mg/dL 6-24 H Creatinine (test code = 2.17 mg/dL 0.76-1.27 H 2160-0) eGFR If NonAfricn Am (test 35 mL/min/1.73 >59 L code = 66762-6) eGFR If Africn Am (test code = 41 mL/min/1.73 >59 L 79448-2) BUN/Creatinine Ratio (test 23 9-20 H code = 3097-3) Sodium (test code = 2951-2) 137 mmol/L 134-144 Potassium (test code = 2823-3) 4.9 mmol/L 3.5-5.2 Chloride (test code = 2075-0) 93 mmol/L 96-106 L Carbon Dioxide, Total (test 29 mmol/L 20-29 code = 8-9) Calcium (test code = 77754-1) 9.5 mg/dL 8.7-10.2 Protein, Total (test code = 6.5 g/dL 6.0-8.5 2885-2) Albumin (test code = 1751-7) 3.6 g/dL 4.0-5.0 L Globulin, Total (test code = 2.9 g/dL 1.5-4.5 25398-7) A/G Ratio (test code = 1759-0) 1.2 1.2-2.2 Bilirubin, Total (test code = 0.5 mg/dL 0.0-1.2 1974-2) Alkaline Phosphatase (test 103 IU/L 39-117 code = 6768-6) AST (SGOT) (test code = 20 IU/L 0-40 1920-8) ALT (SGPT) (test code = 30 IU/L 0-44 1742-6) [facility] Description: Lipid [id number] 03:19:00 Test Item Value Reference Range Interpretation Comments Cholesterol, Total (test code = 231 mg/dL 100-199 H 3-3) Triglycerides (test code = 2571-8) 215 mg/dL 0-149 H HDL Cholesterol (test code = 34 mg/dL >39 L 5-9) VLDL Cholesterol Renuka (test code = 43 mg/dL 5-40 H 81651-7) LDL Cholesterol Calc (test code = 154 mg/dL 0-99 H 71535-4) Comment: (test code = 58143-8) [facility] Description: Comp. Metabolic Panel ()2019-11-10 03:19:00 Test Item Value Reference Range Interpretation Comments Glucose (test code = 2345-7) 439 mg/dL 65-99 H BUN (test code = 3094-0) 49 mg/dL 6-24 H Creatinine (test code = 2.17 mg/dL 0.76-1.27 H 2160-0) eGFR If NonAfricn Am (test 35 mL/min/1.73 >59 L code = 13585-8) eGFR If Africn Am (test code = 41 mL/min/1.73 >59 L 96577-0) BUN/Creatinine Ratio (test 23 9-20 H code = 3097-3) Sodium (test code = 2951-2) 137 mmol/L 134-144 Potassium (test code = 2823-3) 4.9 mmol/L 3.5-5.2 Chloride (test code = 2075-0) 93 mmol/L 96-106 L Carbon Dioxide, Total (test 29 mmol/L 20-29 code = 8-9) Calcium (test code = 63255-6) 9.5 mg/dL 8.7-10.2 Protein, Total (test code = 6.5 g/dL 6.0-8.5 2885-2) Albumin (test code = 1751-7) 3.6 g/dL 4.0-5.0 L Globulin, Total (test code = 2.9 g/dL 1.5-4.5 63465-9) A/G Ratio (test code = 1759-0) 1.2 1.2-2.2 Bilirubin, Total (test code = 0.5 mg/dL 0.0-1.2 1975-2) Alkaline Phosphatase (test 103 IU/L 39-117 code = 6768-6) AST (SGOT) (test code = 20 IU/L 0-40 1920-8) ALT (SGPT) (test code = 30 IU/L 0-44 1742-6) [facility] Description: Lipid [id number] 03:19:00 Test Item Value Reference Range Interpretation Comments Cholesterol, Total (test code = 231 mg/dL 100-199 H 2092-3) Triglycerides (test code = 2571-8) 215 mg/dL 0-149 H HDL Cholesterol (test code = 34 mg/dL >39 L 2084-9) VLDL Cholesterol Renuka (test code = 43 mg/dL 5-40 H 44115-9) LDL Cholesterol Calc (test code = 154 mg/dL 0-99 H 81128-4) Comment: (test code = 91636-1) [facility] Description: Comp. Metabolic Panel (14)2019-11-10 03:19:00 Test Item Value Reference Range Interpretation Comments Glucose (test code = 2345-7) 439 mg/dL 65-99 H BUN (test code = 3094-0) 49 mg/dL 6-24 H Creatinine (test code = 2.17 mg/dL 0.76-1.27 H 2160-0) eGFR If NonAfricn Am (test 35 mL/min/1.73 >59 L code = 01058-4) eGFR If Africn Am (test code = 41 mL/min/1.73 >59 L 82262-8) BUN/Creatinine Ratio (test 23 9-20 H code = 3097-3) Sodium (test code = 2951-2) 137 mmol/L 134-144 Potassium (test code = 2823-3) 4.9 mmol/L 3.5-5.2 Chloride (test code = 2075-0) 93 mmol/L 96-106 L Carbon Dioxide, Total (test 29 mmol/L 20-29 code = 8-9) Calcium (test code = 08280-7) 9.5 mg/dL 8.7-10.2 Protein, Total (test code = 6.5 g/dL 6.0-8.5 2885-2) Albumin (test code = 1751-7) 3.6 g/dL 4.0-5.0 L Globulin, Total (test code = 2.9 g/dL 1.5-4.5 74962-6) A/G Ratio (test code = 1759-0) 1.2 1.2-2.2 Bilirubin, Total (test code = 0.5 mg/dL 0.0-1.2 1974-2) Alkaline Phosphatase (test 103 IU/L 39-117 code = 6768-6) AST (SGOT) (test code = 20 IU/L 0-40 1920-8) ALT (SGPT) (test code = 30 IU/L 0-44 1742-6) [facility] Description: Lipid [id number] 03:19:00 Test Item Value Reference Range Interpretation Comments Cholesterol, Total (test code = 231 mg/dL 100-199 H 2092-3) Triglycerides (test code = 2571-8) 215 mg/dL 0-149 H HDL Cholesterol (test code = 34 mg/dL >39 L 9) VLDL Cholesterol Renuka (test code = 43 mg/dL 5-40 H 87742-0) LDL Cholesterol Calc (test code = 154 mg/dL 0-99 H 88431-3) Comment: (test code = 29144-6) [facility] Description: Comp. Metabolic Panel (14)2019-11-10 03:19:00 Test Item Value Reference Range Interpretation Comments Glucose (test code = 2345-7) 439 mg/dL 65-99 H BUN (test code = 3094-0) 49 mg/dL 6-24 H Creatinine (test code = 2.17 mg/dL 0.76-1.27 H 2160-0) eGFR If NonAfricn Am (test 35 mL/min/1.73 >59 L code = 73150-0) eGFR If Africn Am (test code = 41 mL/min/1.73 >59 L 36459-9) BUN/Creatinine Ratio (test 23 9-20 H code = 3097-3) Sodium (test code = 2951-2) 137 mmol/L 134-144 Potassium (test code = 2823-3) 4.9 mmol/L 3.5-5.2 Chloride (test code = 2075-0) 93 mmol/L 96-106 L Carbon Dioxide, Total (test 29 mmol/L 20-29 code = 8-9) Calcium (test code = 01251-2) 9.5 mg/dL 8.7-10.2 Protein, Total (test code = 6.5 g/dL 6.0-8.5 2885-2) Albumin (test code = 1751-7) 3.6 g/dL 4.0-5.0 L Globulin, Total (test code = 2.9 g/dL 1.5-4.5 34797-4) A/G Ratio (test code = 1759-0) 1.2 1.2-2.2 Bilirubin, Total (test code = 0.5 mg/dL 0.0-1.2 1975-2) Alkaline Phosphatase (test 103 IU/L 39-117 code = 6768-6) AST (SGOT) (test code = 20 IU/L 0-40 1920-8) ALT (SGPT) (test code = 30 IU/L 0-44 1742-6) [facility] Description: Lipid [id number] 03:19:00 Test Item Value Reference Range Interpretation Comments Cholesterol, Total (test code = 231 mg/dL 100-199 H 2092-3) Triglycerides (test code = 2571-8) 215 mg/dL 0-149 H HDL Cholesterol (test code = 34 mg/dL >39 L 2084-9) VLDL Cholesterol Renuka (test code = 43 mg/dL 5-40 H 49893-9) LDL Cholesterol Calc (test code = 154 mg/dL 0-99 H 02107-1) Comment: (test code = 86589-5) [facility] Description: Comp. Metabolic Panel ()2019-11-10 03:19:00 Test Item Value Reference Range Interpretation Comments Glucose (test code = 2345-7) 439 mg/dL 65-99 H BUN (test code = 3094-0) 49 mg/dL 6-24 H Creatinine (test code = 2.17 mg/dL 0.76-1.27 H 2160-0) eGFR If NonAfricn Am (test 35 mL/min/1.73 >59 L code = 19437-9) eGFR If Africn Am (test code = 41 mL/min/1.73 >59 L 18768-3) BUN/Creatinine Ratio (test 23 9-20 H code = 3097-3) Sodium (test code = 2951-2) 137 mmol/L 134-144 Potassium (test code = 2823-3) 4.9 mmol/L 3.5-5.2 Chloride (test code = 2075-0) 93 mmol/L 96-106 L Carbon Dioxide, Total (test 29 mmol/L 20-29 code = 2027-9) Calcium (test code = 32053-0) 9.5 mg/dL 8.7-10.2 Protein, Total (test code = 6.5 g/dL 6.0-8.5 2885-2) Albumin (test code = 1751-7) 3.6 g/dL 4.0-5.0 L Globulin, Total (test code = 2.9 g/dL 1.5-4.5 13863-0) A/G Ratio (test code = 1759-0) 1.2 1.2-2.2 Bilirubin, Total (test code = 0.5 mg/dL 0.0-1.2 1974-2) Alkaline Phosphatase (test 103 IU/L 39-117 code = 6768-6) AST (SGOT) (test code = 20 IU/L 0-40 1920-8) ALT (SGPT) (test code = 30 IU/L 0-44 1742-6) [facility] Description: Lipid [id number] 03:19:00 Test Item Value Reference Range Interpretation Comments Cholesterol, Total (test code = 231 mg/dL 100-199 H 2093-3) Triglycerides (test code = 2571-8) 215 mg/dL 0-149 H HDL Cholesterol (test code = 34 mg/dL >39 L 2085-9) VLDL Cholesterol Renuka (test code = 43 mg/dL 5-40 H 31863-5) LDL Cholesterol Calc (test code = 154 mg/dL 0-99 H 62979-4) Comment: (test code = 33457-8) [facility], [facility], 1 VIEW, NON [id number] 23:44:00Reason for exam:- >SHORTNESS OF BREATHReason for exam:->Should this be performed at the bedside?->NoFINAL REPORT RAD, CHEST, 1 VIEW, NON DEPT INDICATION: SHORTNESS OF BREATH COMPARISON: Plain radiograph the chest dated 01/16/2018. FINDINGS: Portable frontal view of the chest.IMPRESSION: Left chest wall pacer device with leads overlying the right atrium and right ventricle. E nlarged cardiac mediastinal silhouette, unchanged, partially exaggerated by technique. Prominent pulmonary vasculature is concerning for pulmonary vascular congestion without overt pulmonary edema. No lobar consolidation. Possible trace left pleural effusion. No pneumothorax. Osseous structures are grossly unremarkable. Signed: Kassi Oseguera Verified Date/Time: 07/15/2019 23:44:04 B-TYPE NATRIURETIC FACTOR (BNP)2019-07-15 23:19:00 Test Item Value Reference Range Interpretation Comments B-TYPE NATRIURETIC PEPTIDE (BEAKER) 482 pg/mL 0-100 H (test code = 700) [employer] ID - LACIE DE LA VEGA [id number] 23:17:00 Test Item Value Reference Range Interpretation Comments TROPONIN I (BEAKER) (test code = 0.04 ng/mL 0.00-0.15 397) Troponin I (TnI) levels must be interpreted in the context of the presenting symptoms and the clinical findings. Elevated TnI levels indicate myocardial damage, but are not specific for ischemic heart disease. Elevated TnI levels are seen in patients with other cardiac conditions (including myocarditis and congestive heart failure), and slight TnI elevations occur in patients with other conditions, including sepsis, renal failure, acidosis, acute neurological disease, and persistent tachyarrhythmia.[employer] ID - LACIE BCOMPREHENSIVE METABOLIC [id number] 23:11:00 Test Item Value Reference Range Interpretation Comments TOTAL PROTEIN 6.2 gm/dL 6.0-8.5 (BEAKER) (test code = 770) ALBUMIN (BEAKER) 3.3 g/dL 3.5-5.0 L (test code = 1145) ALKALINE PHOSPHATASE 104 U/L 30-115 (BEAKER) (test code = 346) BILIRUBIN TOTAL 1.2 mg/dL 0.1-1.2 (BEAKER) (test code = 377) SODIUM (BEAKER) (test 139 meq/L 135-148 code = 381) POTASSIUM (BEAKER) 3.8 meq/L 3.6-5.5 (test code = 379) CHLORIDE (BEAKER) 102 meq/L 98-106 (test code = 382) CO2 (BEAKER) (test 28 meq/L 20-29 code = 355) BLOOD UREA NITROGEN 29 mg/dL 10-26 H (BEAKER) (test code = 354) CREATININE (BEAKER) 1.76 mg/dL 0.50-1.20 H (test code = 358) GLUCOSE RANDOM 278 mg/dL 70-110 H (BEAKER) (test code = 652) CALCIUM (BEAKER) 8.5 mg/dL 8.5-10.5 (test code = 697) AST (SGOT) (BEAKER) 20 U/L 5-40 (test code = 353) ALT (SGPT) (BEAKER) 28 U/L 5-50 (test code = 347) EGFR (BEAKER) (test 42 mL/min/1.73 ESTIMA JOSÉ LUIS GFR IS code = 1092) sq m NOT ACCURATE CREATININE CLEARANCE IN PREDICTING GLOMERULAR FILTRATION RATE . ESTIMATED GFR I S NOT APPLICABLE FOR DIALYSIS PATIEN TS. [employer] ID - LACIE BCBC W/PLT COUNT & AUTO [id number] 22:51:00 Test Item Value Reference Range Interpretation Comments WHITE BLOOD CELL COUNT (BEAKER) 9.6 K/ L 4.0-10.0 (test code = 775) RED BLOOD CELL COUNT (BEAKER) 4.79 M/ L 4.20-5.80 (test code = 761) HEMOGLOBIN (BEAKER) (test code = 14.9 GM/DL 13.0-16.8 410) HEMATOCRIT (BEAKER) (test code = 44.6 % 36.0-50.0 411) MEAN CORPUSCULAR VOLUME (BEAKER) 93.1 fL 82.0-99.0 (test code = 753) MEAN CORPUSCULAR HEMOGLOBIN 31.1 pg 27.0-33.0 (BEAKER) (test code = 751) MEAN CORPUSCULAR HEMOGLOBIN CONC 33.4 GM/DL 32.0-36.0 (BEAKER) (test code = 752) RED CELL DISTRIBUTION WIDTH 12.8 % 12.0-15.0 (BEAKER) (test code = 412) PLATELET COUNT (BEAKER) (test 228 K/CU MM 150-430 code = 756) MEAN PLATELET VOLUME (BEAKER) 11.5 fL 6.0-11.5 (test code = 754) NUCLEATED RED BLOOD CELLS 0 /100 WBC 0-0 (BEAKER) (test code = 413) NEUTROPHILS RELATIVE PERCENT 73 % (BEAKER) (test code = 429) LYMPHOCYTES RELATIVE PERCENT 17 % (BEAKER) (test code = 430) MONOCYTES RELATIVE PERCENT 7 % (BEAKER) (test code = 431) EOSINOPHILS RELATIVE PERCENT 2 % (BEAKER) (test code = 432) BASOPHILS RELATIVE PERCENT 1 % (BEAKER) (test code = 437) NEUTROPHILS ABSOLUTE COUNT 6.99 K/ L 1.80-8.00 (BEAKER) (test code = 670) LYMPHOCYTES ABSOLUTE COUNT 1.62 K/ L 1.48-4.50 (BEAKER) (test code = 414) MONOCYTES ABSOLUTE COUNT (BEAKER) 0.66 K/ L 0.00-1.30 (test code = 415) EOSINOPHILS ABSOLUTE COUNT 0.18 K/ L 0.00-0.50 (BEAKER) (test code = 416) BASOPHILS ABSOLUTE COUNT (BEAKER) 0.09 K/ L 0.00-0.20 (test code = 417) IMMATURE GRANULOCYTES-RELATIVE 1 % 0-0 H PERCENT (BEAKER) (test code = 2801) Panel Description: Hemoglobin A1c/Hemoglobin.total in [id number] 09:26:00 Test Item Value Reference Range Interpretation Comments Hemoglobin A1c (test code 10.1 % 4.8-5.6 H = 4548-4) . Prediabetes: 5. 7 - 6.4 Diabete s: >6.4 Glycemi c control for niall lts with diabetes: <7.0

P erforme d by:
[facility] [place] (HD)

[facility] Description: Hemoglobin A1c/Hemoglobin.total in Blood 2019-07-04 09:26:00 Test Item Value Reference Range Interpretation Comments Hemoglobin A1c (test code 10.1 % 4.8-5.6 H = 4548-4) . Prediabetes: 5. 7 - 6.4 Diabete s: >6.4 Glycemi c control for niall lts with diabetes: <7.0

P erforme d by:
[facility] [place] (HD)

[facility] Description: Hemoglobin A1c/Hemoglobin.total in Blood 2019-07-04 09:26:00 Test Item Value Reference Range Interpretation Comments Hemoglobin A1c (test code 10.1 % 4.8-5.6 H = 4548-4) . Prediabetes: 5. 7 - 6.4 Diabete s: >6.4 Glycemi c control for niall lts with diabetes: <7.0

P erforme d by:
[facility] [place] (HD)

[facility] Description: Hemoglobin A1c/Hemoglobin.total in Blood 2019-07-04 09:26:00 Test Item Value Reference Range Interpretation Comments Hemoglobin A1c (test code 10.1 % 4.8-5.6 H = 4548-4) . Prediabetes: 5. 7 - 6.4 Diabete s: >6.4 Glycemi c control for niall lts with diabetes: <7.0

P erforme d by:
[facility] ([place])

[facility] Description: Hemoglobin A1c/Hemoglobin.total in Blood 2019-07-04 09:26:00 Test Item Value Reference Range Interpretation Comments Hemoglobin A1c (test code 10.1 % 4.8-5.6 H = 4548-4) . Prediabetes: 5. 7 - 6.4 Diabete s: >6.4 Glycemi c control for niall lts with diabetes: <7.0

P erforme d by:
[facility] ([place])

[facility] Description: Hemoglobin A1c/Hemoglobin.total in Blood 2019-07-04 09:26:00 Test Item Value Reference Range Interpretation Comments Hemoglobin A1c (test code 10.1 % 4.8-5.6 H = 4548-4) . Prediabetes: 5. 7 - 6.4 Diabete s: >6.4 Glycemi c control for niall lts with diabetes: <7.0

P erforme d by:
[facility] ([place])

[facility] Description: Hemoglobin A1c/Hemoglobin.total in Blood 2019-07-04 09:26:00 Test Item Value Reference Range Interpretation Comments Hemoglobin A1c (test code 10.1 % 4.8-5.6 H = 4548-4) . Prediabetes: 5. 7 - 6.4 Diabete s: >6.4 Glycemi c control for niall lts with diabetes: <7.0

P erforme d by:
[facility] ([place])

[facility] Description: Hemoglobin A1c/Hemoglobin.total in Blood 2019-07-04 09:26:00 Test Item Value Reference Range Interpretation Comments Hemoglobin A1c (test code 10.1 % 4.8-5.6 H = 4548-4) . Prediabetes: 5. 7 - 6.4 Diabete s: >6.4 Glycemi c control for niall lts with diabetes: <7.0

P erforme d by:
[facility] ([place])

[facility] Description: Hemoglobin A1c/Hemoglobin.total in Blood 2019-07-04 09:26:00 Test Item Value Reference Range Interpretation Comments Hemoglobin A1c (test code 10.1 % 4.8-5.6 H = 4548-4) . Prediabetes: 5. 7 - 6.4 Diabete s: >6.4 Glycemi c control for niall lts with diabetes: <7.0

P erforme d by:
[facility] ([place])

[facility] Description: Hemoglobin A1c/Hemoglobin.total in Blood 2019-07-04 09:26:00 Test Item Value Reference Range Interpretation Comments Hemoglobin A1c (test code 10.1 % 4.8-5.6 H = 4548-4) . Prediabetes: 5. 7 - 6.4 Diabete s: >6.4 Glycemi c control for niall lts with diabetes: <7.0

P erforme d by:
[facility] ([place])

[facility] Description: Hemoglobin A1c/Hemoglobin.total in Blood 2019-07-04 09:26:00 Test Item Value Reference Range Interpretation Comments Hemoglobin A1c (test code 10.1 % 4.8-5.6 H = 4548-4) . Prediabetes: 5. 7 - 6.4 Diabete s: >6.4 Glycemi c control for niall lts with diabetes: <7.0

P erforme d by:
[facility] ([place])

[facility] Description: Hemoglobin A1c/Hemoglobin.total in Blood 2019-07-04 09:26:00 Test Item Value Reference Range Interpretation Comments Hemoglobin A1c (test code 10.1 % 4.8-5.6 H = 4548-4) . Prediabetes: 5. 7 - 6.4 Diabete s: >6.4 Glycemi c control for niall lts with diabetes: <7.0

P erforme d by:
[facility] ([place])

[facility] Description: Hemoglobin A1c/Hemoglobin.total in Blood 2019-07-04 09:26:00 Test Item Value Reference Range Interpretation Comments Hemoglobin A1c (test code 10.1 % 4.8-5.6 H = 4548-4) . Prediabetes: 5. 7 - 6.4 Diabete s: >6.4 Glycemi c control for niall lts with diabetes: <7.0

P erforme d by:
[facility] [place] ([place])

[facility] Description: Hemoglobin A1c/Hemoglobin.total in Blood 2019-07-04 09:26:00 Test Item Value Reference Range Interpretation Comments Hemoglobin A1c (test code 10.1 % 4.8-5.6 H = 4548-4) . Prediabetes: 5. 7 - 6.4 Diabete s: >6.4 Glycemi c control for niall lts with diabetes: <7.0

P erforme d by:
[facility] [place] ([place])

[facility] Description: Hemoglobin A1c/Hemoglobin.total in Blood 2019-07-04 09:26:00 Test Item Value Reference Range Interpretation Comments Hemoglobin A1c (test code 10.1 % 4.8-5.6 H = 4548-4) . Prediabetes: 5. 7 - 6.4 Diabete s: >6.4 Glycemi c control for niall lts with diabetes: <7.0

P erforme d by:
[facility] [place] ([place])

[facility] Description: Hemoglobin A1c/Hemoglobin.total in Blood 2019-07-04 09:26:00 Test Item Value Reference Range Interpretation Comments Hemoglobin A1c (test code 10.1 % 4.8-5.6 H = 4548-4) . Prediabetes: 5. 7 - 6.4 Diabete s: >6.4 Glycemi c control for niall lts with diabetes: <7.0

P erforme d by:
[facility] [place] ([place])

[facility] Description: Hemoglobin A1c/Hemoglobin.total in Blood 2019-07-04 09:26:00 Test Item Value Reference Range Interpretation Comments Hemoglobin A1c (test code 10.1 % 4.8-5.6 H = 4548-4) . Prediabetes: 5. 7 - 6.4 Diabete s: >6.4 Glycemi c control for niall lts with diabetes: <7.0

P erforme d by:
[facility] [place] ([place])

[facility] Description: Lipid [id number] 01:17:00 Test Item Value Reference Range Interpretation Comments Cholesterol, Total (test code = 241 mg/dL 100-199 H 2093-3) Triglycerides (test code = 2571-8) 57 mg/dL 0-149 HDL Cholesterol (test code = 37 mg/dL >39 L 5-9) VLDL Cholesterol Renuka (test code = 11 mg/dL 5-40 28082-2) LDL Cholesterol Calc (test code = 193 mg/dL 0-99 H 03028-4) Comment: (test code = 15538-3) [employer] Description: Lipid [id number] 01:17:00 Test Item Value Reference Range Interpretation Comments Cholesterol, Total (test code = 241 mg/dL 100-199 H 2093-3) Triglycerides (test code = 2571-8) 57 mg/dL 0-149 HDL Cholesterol (test code = 37 mg/dL >39 L 5-9) VLDL Cholesterol Renuka (test code = 11 mg/dL 5-40 12353-8) LDL Cholesterol Calc (test code = 193 mg/dL 0-99 H 94498-6) Comment: (test code = 36660-9) [employer] Description: Lipid [id number] 01:17:00 Test Item Value Reference Range Interpretation Comments Cholesterol, Total (test code = 241 mg/dL 100-199 H 2093-3) Triglycerides (test code = 2571-8) 57 mg/dL 0-149 HDL Cholesterol (test code = 37 mg/dL >39 L 2085-9) VLDL Cholesterol Renuka (test code = 11 mg/dL 5-40 53239-8) LDL Cholesterol Calc (test code = 193 mg/dL 0-99 H 45498-1) Comment: (test code = 90682-5) [facility] Description: Lipid [id number] 01:17:00 Test Item Value Reference Range Interpretation Comments Cholesterol, Total (test code = 241 mg/dL 100-199 H 2093-3) Triglycerides (test code = 2571-8) 57 mg/dL 0-149 HDL Cholesterol (test code = 37 mg/dL >39 L 2085-9) VLDL Cholesterol Renuka (test code = 11 mg/dL 5-40 21616-5) LDL Cholesterol Calc (test code = 193 mg/dL 0-99 H 17946-2) Comment: (test code = 02397-1) [facility] Description: Lipid [id number] 01:17:00 Test Item Value Reference Range Interpretation Comments Cholesterol, Total (test code = 241 mg/dL 100-199 H 2093-3) Triglycerides (test code = 2571-8) 57 mg/dL 0-149 HDL Cholesterol (test code = 37 mg/dL >39 L 2085-9) VLDL Cholesterol Renuka (test code = 11 mg/dL 5-40 94850-4) LDL Cholesterol Calc (test code = 193 mg/dL 0-99 H 81652-1) Comment: (test code = 22441-8) [facility] Description: Lipid [id number] 01:17:00 Test Item Value Reference Range Interpretation Comments Cholesterol, Total (test code = 241 mg/dL 100-199 H 2093-3) Triglycerides (test code = 2571-8) 57 mg/dL 0-149 HDL Cholesterol (test code = 37 mg/dL >39 L 2085-9) VLDL Cholesterol Renuka (test code = 11 mg/dL 5-40 20837-9) LDL Cholesterol Calc (test code = 193 mg/dL 0-99 H 03462-5) Comment: (test code = 03983-3) [facility] Description: Lipid [id number] 01:17:00 Test Item Value Reference Range Interpretation Comments Cholesterol, Total (test code = 241 mg/dL 100-199 H 2093-3) Triglycerides (test code = 2571-8) 57 mg/dL 0-149 HDL Cholesterol (test code = 37 mg/dL >39 L 2085-9) VLDL Cholesterol Renuka (test code = 11 mg/dL 5-40 52497-9) LDL Cholesterol Calc (test code = 193 mg/dL 0-99 H 89912-2) Comment: (test code = 73804-1) [facility] Description: Lipid [id number] 01:17:00 Test Item Value Reference Range Interpretation Comments Cholesterol, Total (test code = 241 mg/dL 100-199 H 2093-3) Triglycerides (test code = 2571-8) 57 mg/dL 0-149 HDL Cholesterol (test code = 37 mg/dL >39 L 2085-9) VLDL Cholesterol Renuka (test code = 11 mg/dL 5-40 18392-5) LDL Cholesterol Calc (test code = 193 mg/dL 0-99 H 60580-3) Comment: (test code = 21973-8) [facility] Description: Lipid [id number] 01:17:00 Test Item Value Reference Range Interpretation Comments Cholesterol, Total (test code = 241 mg/dL 100-199 H 2093-3) Triglycerides (test code = 2571-8) 57 mg/dL 0-149 HDL Cholesterol (test code = 37 mg/dL >39 L 5-9) VLDL Cholesterol Renuka (test code = 11 mg/dL 5-40 37575-2) LDL Cholesterol Calc (test code = 193 mg/dL 0-99 H 37829-7) Comment: (test code = 93293-0) [facility] Description: Lipid [id number] 01:17:00 Test Item Value Reference Range Interpretation Comments Cholesterol, Total (test code = 241 mg/dL 100-199 H 2093-3) Triglycerides (test code = 2571-8) 57 mg/dL 0-149 HDL Cholesterol (test code = 37 mg/dL >39 L 2085-9) VLDL Cholesterol Renuka (test code = 11 mg/dL 5-40 84828-8) LDL Cholesterol Calc (test code = 193 mg/dL 0-99 H 36072-5) Comment: (test code = 22313-4) [facility]k Description: Lipid [id number] 01:17:00 Test Item Value Reference Range Interpretation Comments Cholesterol, Total (test code = 241 mg/dL 100-199 H 2093-3) Triglycerides (test code = 2571-8) 57 mg/dL 0-149 HDL Cholesterol (test code = 37 mg/dL >39 L 2085-9) VLDL Cholesterol Renuka (test code = 11 mg/dL 5-40 86237-1) LDL Cholesterol Calc (test code = 193 mg/dL 0-99 H 45073-6) Comment: (test code = 82369-7) [facility] Description: Lipid [id number] 01:17:00 Test Item Value Reference Range Interpretation Comments Cholesterol, Total (test code = 241 mg/dL 100-199 H 2093-3) Triglycerides (test code = 2571-8) 57 mg/dL 0-149 HDL Cholesterol (test code = 37 mg/dL >39 L 2085-9) VLDL Cholesterol Renuka (test code = 11 mg/dL 5-40 00408-5) LDL Cholesterol Calc (test code = 193 mg/dL 0-99 H 28342-8) Comment: (test code = 43087-8) [facility] Description: Lipid [id number] 01:17:00 Test Item Value Reference Range Interpretation Comments Cholesterol, Total (test code = 241 mg/dL 100-199 H 2093-3) Triglycerides (test code = 2571-8) 57 mg/dL 0-149 HDL Cholesterol (test code = 37 mg/dL >39 L 2085-9) VLDL Cholesterol Renuka (test code = 11 mg/dL 5-40 47923-1) LDL Cholesterol Calc (test code = 193 mg/dL 0-99 H 37496-3) Comment: (test code = 28917-9) [facility] Description: Lipid [id number] 01:17:00 Test Item Value Reference Range Interpretation Comments Cholesterol, Total (test code = 241 mg/dL 100-199 H 2093-3) Triglycerides (test code = 2571-8) 57 mg/dL 0-149 HDL Cholesterol (test code = 37 mg/dL >39 L 2085-9) VLDL Cholesterol Renuka (test code = 11 mg/dL 5-40 03250-6) LDL Cholesterol Calc (test code = 193 mg/dL 0-99 H 50836-3) Comment: (test code = 88874-5) [facility] Description: Lipid [id number] 01:17:00 Test Item Value Reference Range Interpretation Comments Cholesterol, Total (test code = 241 mg/dL 100-199 H 2093-3) Triglycerides (test code = 2571-8) 57 mg/dL 0-149 HDL Cholesterol (test code = 37 mg/dL >39 L 2085-9) VLDL Cholesterol Renuka (test code = 11 mg/dL 5-40 73410-4) LDL Cholesterol Calc (test code = 193 mg/dL 0-99 H 89008-7) Comment: (test code = 47976-6) [facility] Description: Lipid [id number] 01:17:00 Test Item Value Reference Range Interpretation Comments Cholesterol, Total (test code = 241 mg/dL 100-199 H 2093-3) Triglycerides (test code = 2571-8) 57 mg/dL 0-149 HDL Cholesterol (test code = 37 mg/dL >39 L 2085-9) VLDL Cholesterol Renuka (test code = 11 mg/dL 5-40 34211-8) LDL Cholesterol Calc (test code = 193 mg/dL 0-99 H 57986-3) Comment: (test code = 46205-1) [facility] Description: Lipid [id number] 01:17:00 Test Item Value Reference Range Interpretation Comments Cholesterol, Total (test code = 241 mg/dL 100-199 H 2093-3) Triglycerides (test code = 2571-8) 57 mg/dL 0-149 HDL Cholesterol (test code = 37 mg/dL >39 L 2085-9) VLDL Cholesterol Renuka (test code = 11 mg/dL 5-40 36148-1) LDL Cholesterol Calc (test code = 193 mg/dL 0-99 H 48166-5) Comment: (test code = 67806-6) [facility] Description: Comp. Metabolic Panel (14)2019-07-04 01:03:00 Test Item Value Reference Range Interpretation Comments Glucose (test code = 2345-7) 262 mg/dL 65-99 H BUN (test code = 3094-0) 27 mg/dL 6-24 H Creatinine (test code = 1.46 mg/dL 0.76-1.27 H 2160-0) eGFR If NonAfricn Am (test 57 mL/min/1.73 >59 L code = 91395-5) eGFR If Africn Am (test code = 66 mL/min/1.73 >59 56311-1) BUN/Creatinine Ratio (test 12-16 code = 3097-3) Sodium (test code = 2951-2) 140 mmol/L 134-144 Potassium (test code = 2823-3) 4.4 mmol/L 3.5-5.2 Chloride (test code = 2075-0) 106 mmol/L 96-106 Carbon Dioxide, Total (test 23 mmol/L 20-29 code = 2028-9) Calcium (test code = 87767-9) 8.7 mg/dL 8.7-10.2 Protein, Total (test code = 5.3 g/dL 6.0-8.5 L 2885-2) Albumin (test code = 1751-7) 3.0 g/dL 4.0-5.0 L Globulin, Total (test code = 2.3 g/dL 1.5-4.5 50353-2) A/G Ratio (test code = 1759-0) 1.3 1.2-2.2 Bilirubin, Total (test code = 0.5 mg/dL 0.0-1.2 1975-2) Alkaline Phosphatase (test 95 IU/L 39-117 code = 6768-6) AST (SGOT) (test code = 16 IU/L 0-40 1920-8) ALT (SGPT) (test code = 23 IU/L 0-44 1742-6) [facility] Description: Comp. Metabolic Panel (142019-07-04 01:03:00 Test Item Value Reference Range Interpretation Comments Glucose (test code = 2345-7) 262 mg/dL 65-99 H BUN (test code = 3094-0) 27 mg/dL 6-24 H Creatinine (test code = 1.46 mg/dL 0.76-1.27 H 2160-0) eGFR If NonAfricn Am (test 57 mL/min/1.73 >59 L code = 25385-6) eGFR If Africn Am (test code = 66 mL/min/1.73 >59 62814-9) BUN/Creatinine Ratio (test 12-16 code = 3097-3) Sodium (test code = 2951-2) 140 mmol/L 134-144 Potassium (test code = 2823-3) 4.4 mmol/L 3.5-5.2 Chloride (test code = 2075-0) 106 mmol/L 96-106 Carbon Dioxide, Total (test 23 mmol/L 20-29 code = 8-9) Calcium (test code = 53712-3) 8.7 mg/dL 8.7-10.2 Protein, Total (test code = 5.3 g/dL 6.0-8.5 L 2885-2) Albumin (test code = 1751-7) 3.0 g/dL 4.0-5.0 L Globulin, Total (test code = 2.3 g/dL 1.5-4.5 28805-7) A/G Ratio (test code = 1759-0) 1.3 1.2-2.2 Bilirubin, Total (test code = 0.5 mg/dL 0.0-1.2 1975-2) Alkaline Phosphatase (test 95 IU/L 39-117 code = 6768-6) AST (SGOT) (test code = 16 IU/L 0-40 1920-8) ALT (SGPT) (test code = 23 IU/L 0-44 1742-6) [facility] Description: Comp. Metabolic Panel (14)2019-07-04 01:03:00 Test Item Value Reference Range Interpretation Comments Glucose (test code = 2345-7) 262 mg/dL 65-99 H BUN (test code = 3094-0) 27 mg/dL 6-24 H Creatinine (test code = 1.46 mg/dL 0.76-1.27 H 2160-0) eGFR If NonAfricn Am (test 57 mL/min/1.73 >59 L code = 85773-3) eGFR If Africn Am (test code = 66 mL/min/1.73 >59 68240-9) BUN/Creatinine Ratio (test 18 - code = 3097-3) Sodium (test code = 2951-2) 140 mmol/L 134-144 Potassium (test code = 2823-3) 4.4 mmol/L 3.5-5.2 Chloride (test code = 2075-0) 106 mmol/L 96-106 Carbon Dioxide, Total (test 23 mmol/L - code = 2027-9) Calcium (test code = 48938-4) 8.7 mg/dL 8.7-10.2 Protein, Total (test code = 5.3 g/dL 6.0-8.5 L 2885-2) Albumin (test code = 1751-7) 3.0 g/dL 4.0-5.0 L Globulin, Total (test code = 2.3 g/dL 1.5-4.5 77024-9) A/G Ratio (test code = 1759-0) 1.3 1.2-2.2 Bilirubin, Total (test code = 0.5 mg/dL 0.0-1.2 1975-2) Alkaline Phosphatase (test 95 IU/L 39-117 code = 6768-6) AST (SGOT) (test code = 16 IU/L 0-40 1920-8) ALT (SGPT) (test code = 23 IU/L 0-44 1742-6) [facility] Description: Comp. Metabolic Panel (14)2019-07-04 01:03:00 Test Item Value Reference Range Interpretation Comments Glucose (test code = 2345-7) 262 mg/dL 65-99 H BUN (test code = 3094-0) 27 mg/dL 6-24 H Creatinine (test code = 1.46 mg/dL 0.76-1.27 H 2160-0) eGFR If NonAfricn Am (test 57 mL/min/1.73 >59 L code = 92997-8) eGFR If Africn Am (test code = 66 mL/min/1.73 >59 08397-2) BUN/Creatinine Ratio (test 18 12-16 code = 3097-3) Sodium (test code = 2951-2) 140 mmol/L 134-144 Potassium (test code = 2823-3) 4.4 mmol/L 3.5-5.2 Chloride (test code = 2075-0) 106 mmol/L 96-106 Carbon Dioxide, Total (test 23 mmol/L -29 code = 2027-9) Calcium (test code = 17576-1) 8.7 mg/dL 8.7-10.2 Protein, Total (test code = 5.3 g/dL 6.0-8.5 L 2885-2) Albumin (test code = 1751-7) 3.0 g/dL 4.0-5.0 L Globulin, Total (test code = 2.3 g/dL 1.5-4.5 82698-4) A/G Ratio (test code = 1759-0) 1.3 1.2-2.2 Bilirubin, Total (test code = 0.5 mg/dL 0.0-1.2 1975-2) Alkaline Phosphatase (test 95 IU/L 39-117 code = 6768-6) AST (SGOT) (test code = 16 IU/L 0-40 1920-8) ALT (SGPT) (test code = 23 IU/L 0-44 1742-6) [facility] Description: Comp. Metabolic Panel (14)2019-07-04 01:03:00 Test Item Value Reference Range Interpretation Comments Glucose (test code = 2345-7) 262 mg/dL 65-99 H BUN (test code = 3094-0) 27 mg/dL 6-24 H Creatinine (test code = 1.46 mg/dL 0.76-1.27 H 2160-0) eGFR If NonAfricn Am (test 57 mL/min/1.73 >59 L code = 48666-8) eGFR If Africn Am (test code = 66 mL/min/1.73 >59 48482-9) BUN/Creatinine Ratio (test 18 9-20 code = 3097-3) Sodium (test code = 2951-2) 140 mmol/L 134-144 Potassium (test code = 2823-3) 4.4 mmol/L 3.5-5.2 Chloride (test code = 2075-0) 106 mmol/L 96-106 Carbon Dioxide, Total (test 23 mmol/L 20-29 code = 2028-9) Calcium (test code = 29559-9) 8.7 mg/dL 8.7-10.2 Protein, Total (test code = 5.3 g/dL 6.0-8.5 L 2885-2) Albumin (test code = 1751-7) 3.0 g/dL 4.0-5.0 L Globulin, Total (test code = 2.3 g/dL 1.5-4.5 17724-9) A/G Ratio (test code = 1759-0) 1.3 1.2-2.2 Bilirubin, Total (test code = 0.5 mg/dL 0.0-1.2 1974-2) Alkaline Phosphatase (test 95 IU/L 39-117 code = 6768-6) AST (SGOT) (test code = 16 IU/L 0-40 1920-8) ALT (SGPT) (test code = 23 IU/L 0-44 1742-6) [facility] Description: Comp. Metabolic Panel (14)2019-07-04 01:03:00 Test Item Value Reference Range Interpretation Comments Glucose (test code = 2345-7) 262 mg/dL 65-99 H BUN (test code = 3094-0) 27 mg/dL 6-24 H Creatinine (test code = 1.46 mg/dL 0.76-1.27 H 2160-0) eGFR If NonAfricn Am (test 57 mL/min/1.73 >59 L code = 01124-9) eGFR If Africn Am (test code = 66 mL/min/1.73 >59 99295-3) BUN/Creatinine Ratio (test 18 9-20 code = 3097-3) Sodium (test code = 2951-2) 140 mmol/L 134-144 Potassium (test code = 2823-3) 4.4 mmol/L 3.5-5.2 Chloride (test code = 2075-0) 106 mmol/L 96-106 Carbon Dioxide, Total (test 23 mmol/L 20-29 code = 2028-9) Calcium (test code = 54860-3) 8.7 mg/dL 8.7-10.2 Protein, Total (test code = 5.3 g/dL 6.0-8.5 L 2885-2) Albumin (test code = 1751-7) 3.0 g/dL 4.0-5.0 L Globulin, Total (test code = 2.3 g/dL 1.5-4.5 97656-5) A/G Ratio (test code = 1759-0) 1.3 1.2-2.2 Bilirubin, Total (test code = 0.5 mg/dL 0.0-1.2 1974-2) Alkaline Phosphatase (test 95 IU/L 39-117 code = 6768-6) AST (SGOT) (test code = 16 IU/L 0-40 1920-8) ALT (SGPT) (test code = 23 IU/L 0-44 1742-6) [facility] Description: Comp. Metabolic Panel (14)2019-07-04 01:03:00 Test Item Value Reference Range Interpretation Comments Glucose (test code = 2345-7) 262 mg/dL 65-99 H BUN (test code = 3094-0) 27 mg/dL 6-24 H Creatinine (test code = 1.46 mg/dL 0.76-1.27 H 2160-0) eGFR If NonAfricn Am (test 57 mL/min/1.73 >59 L code = 07670-8) eGFR If Africn Am (test code = 66 mL/min/1.73 >59 31418-2) BUN/Creatinine Ratio (test 18 9-20 code = 3097-3) Sodium (test code = 2951-2) 140 mmol/L 134-144 Potassium (test code = 2823-3) 4.4 mmol/L 3.5-5.2 Chloride (test code = 2075-0) 106 mmol/L 96-106 Carbon Dioxide, Total (test 23 mmol/L 20-29 code = 8-9) Calcium (test code = 54270-0) 8.7 mg/dL 8.7-10.2 Protein, Total (test code = 5.3 g/dL 6.0-8.5 L 2885-2) Albumin (test code = 1751-7) 3.0 g/dL 4.0-5.0 L Globulin, Total (test code = 2.3 g/dL 1.5-4.5 55810-1) A/G Ratio (test code = 1759-0) 1.3 1.2-2.2 Bilirubin, Total (test code = 0.5 mg/dL 0.0-1.2 1975-2) Alkaline Phosphatase (test 95 IU/L 39-117 code = 6768-6) AST (SGOT) (test code = 16 IU/L 0-40 1920-8) ALT (SGPT) (test code = 23 IU/L 0-44 1742-6) [facility] Description: Comp. Metabolic Panel (14)2019-07-04 01:03:00 Test Item Value Reference Range Interpretation Comments Glucose (test code = 2345-7) 262 mg/dL 65-99 H BUN (test code = 3094-0) 27 mg/dL 6-24 H Creatinine (test code = 1.46 mg/dL 0.76-1.27 H 2160-0) eGFR If NonAfricn Am (test 57 mL/min/1.73 >59 L code = 74039-1) eGFR If Africn Am (test code = 66 mL/min/1.73 >59 17479-2) BUN/Creatinine Ratio (test 18 9-20 code = 3097-3) Sodium (test code = 2951-2) 140 mmol/L 134-144 Potassium (test code = 2823-3) 4.4 mmol/L 3.5-5.2 Chloride (test code = 2075-0) 106 mmol/L 96-106 Carbon Dioxide, Total (test 23 mmol/L 20-29 code = 2028-9) Calcium (test code = 24913-8) 8.7 mg/dL 8.7-10.2 Protein, Total (test code = 5.3 g/dL 6.0-8.5 L 2885-2) Albumin (test code = 1751-7) 3.0 g/dL 4.0-5.0 L Globulin, Total (test code = 2.3 g/dL 1.5-4.5 09550-6) A/G Ratio (test code = 1759-0) 1.3 1.2-2.2 Bilirubin, Total (test code = 0.5 mg/dL 0.0-1.2 1975-2) Alkaline Phosphatase (test 95 IU/L 39-117 code = 6768-6) AST (SGOT) (test code = 16 IU/L 0-40 1920-8) ALT (SGPT) (test code = 23 IU/L 0-44 1742-6) [facility] Description: Comp. Metabolic Panel (14)2019-07-04 01:03:00 Test Item Value Reference Range Interpretation Comments Glucose (test code = 2345-7) 262 mg/dL 65-99 H BUN (test code = 3094-0) 27 mg/dL 6-24 H Creatinine (test code = 1.46 mg/dL 0.76-1.27 H 2160-0) eGFR If NonAfricn Am (test 57 mL/min/1.73 >59 L code = 75961-3) eGFR If Africn Am (test code = 66 mL/min/1.73 >59 39933-7) BUN/Creatinine Ratio (test 18 9-20 code = 3097-3) Sodium (test code = 2951-2) 140 mmol/L 134-144 Potassium (test code = 2823-3) 4.4 mmol/L 3.5-5.2 Chloride (test code = 2075-0) 106 mmol/L 96-106 Carbon Dioxide, Total (test 23 mmol/L 20-29 code = 2028-9) Calcium (test code = 12917-2) 8.7 mg/dL 8.7-10.2 Protein, Total (test code = 5.3 g/dL 6.0-8.5 L 2885-2) Albumin (test code = 1751-7) 3.0 g/dL 4.0-5.0 L Globulin, Total (test code = 2.3 g/dL 1.5-4.5 15376-4) A/G Ratio (test code = 1759-0) 1.3 1.2-2.2 Bilirubin, Total (test code = 0.5 mg/dL 0.0-1.2 1975-2) Alkaline Phosphatase (test 95 IU/L 39-117 code = 6768-6) AST (SGOT) (test code = 16 IU/L 0-40 1920-8) ALT (SGPT) (test code = 23 IU/L 0-44 1742-6) [facility] Description: Comp. Metabolic Panel (14)2019-07-04 01:03:00 Test Item Value Reference Range Interpretation Comments Glucose (test code = 2345-7) 262 mg/dL 65-99 H BUN (test code = 3094-0) 27 mg/dL 6-24 H Creatinine (test code = 1.46 mg/dL 0.76-1.27 H 2160-0) eGFR If NonAfricn Am (test 57 mL/min/1.73 >59 L code = 39765-9) eGFR If Africn Am (test code = 66 mL/min/1.73 >59 31762-9) BUN/Creatinine Ratio (test 12-16 code = 3097-3) Sodium (test code = 2951-2) 140 mmol/L 134-144 Potassium (test code = 2823-3) 4.4 mmol/L 3.5-5.2 Chloride (test code = 2075-0) 106 mmol/L 96-106 Carbon Dioxide, Total (test 23 mmol/L 20-29 code = 2028-9) Calcium (test code = 75679-3) 8.7 mg/dL 8.7-10.2 Protein, Total (test code = 5.3 g/dL 6.0-8.5 L 2885-2) Albumin (test code = 1751-7) 3.0 g/dL 4.0-5.0 L Globulin, Total (test code = 2.3 g/dL 1.5-4.5 10496-0) A/G Ratio (test code = 1759-0) 1.3 1.2-2.2 Bilirubin, Total (test code = 0.5 mg/dL 0.0-1.2 1975-2) Alkaline Phosphatase (test 95 IU/L 39-117 code = 6768-6) AST (SGOT) (test code = 16 IU/L 0-40 1920-8) ALT (SGPT) (test code = 23 IU/L 0-44 1742-6) [facility] Description: Comp. Metabolic Panel (14)2019-07-04 01:03:00 Test Item Value Reference Range Interpretation Comments Glucose (test code = 2345-7) 262 mg/dL 65-99 H BUN (test code = 3094-0) 27 mg/dL 6-24 H Creatinine (test code = 1.46 mg/dL 0.76-1.27 H 2160-0) eGFR If NonAfricn Am (test 57 mL/min/1.73 >59 L code = 72720-1) eGFR If Africn Am (test code = 66 mL/min/1.73 >59 65190-5) BUN/Creatinine Ratio (test 18 12-16 code = 3097-3) Sodium (test code = 2951-2) 140 mmol/L 134-144 Potassium (test code = 2823-3) 4.4 mmol/L 3.5-5.2 Chloride (test code = 2075-0) 106 mmol/L 96-106 Carbon Dioxide, Total (test 23 mmol/L -29 code = 2027-9) Calcium (test code = 12239-4) 8.7 mg/dL 8.7-10.2 Protein, Total (test code = 5.3 g/dL 6.0-8.5 L 2885-2) Albumin (test code = 1751-7) 3.0 g/dL 4.0-5.0 L Globulin, Total (test code = 2.3 g/dL 1.5-4.5 19685-4) A/G Ratio (test code = 1759-0) 1.3 1.2-2.2 Bilirubin, Total (test code = 0.5 mg/dL 0.0-1.2 1975-2) Alkaline Phosphatase (test 95 IU/L 39-117 code = 6768-6) AST (SGOT) (test code = 16 IU/L 0-40 1920-8) ALT (SGPT) (test code = 23 IU/L 0-44 1742-6) [facility] Description: Comp. Metabolic Panel (14)2019-07-04 01:03:00 Test Item Value Reference Range Interpretation Comments Glucose (test code = 2345-7) 262 mg/dL 65-99 H BUN (test code = 3094-0) 27 mg/dL 6-24 H Creatinine (test code = 1.46 mg/dL 0.76-1.27 H 2160-0) eGFR If NonAfricn Am (test 57 mL/min/1.73 >59 L code = 66913-7) eGFR If Africn Am (test code = 66 mL/min/1.73 >59 33195-4) BUN/Creatinine Ratio (test 18 -20 code = 3097-3) Sodium (test code = 2951-2) 140 mmol/L 134-144 Potassium (test code = 2823-3) 4.4 mmol/L 3.5-5.2 Chloride (test code = 2075-0) 106 mmol/L 96-106 Carbon Dioxide, Total (test 23 mmol/L -29 code = 2027-9) Calcium (test code = 01571-3) 8.7 mg/dL 8.7-10.2 Protein, Total (test code = 5.3 g/dL 6.0-8.5 L 2885-2) Albumin (test code = 1751-7) 3.0 g/dL 4.0-5.0 L Globulin, Total (test code = 2.3 g/dL 1.5-4.5 43828-3) A/G Ratio (test code = 1759-0) 1.3 1.2-2.2 Bilirubin, Total (test code = 0.5 mg/dL 0.0-1.2 1975-2) Alkaline Phosphatase (test 95 IU/L 39-117 code = 6768-6) AST (SGOT) (test code = 16 IU/L 0-40 1920-8) ALT (SGPT) (test code = 23 IU/L 0-44 1742-6) [facility] Description: Comp. Metabolic Panel (14)2019-07-04 01:03:00 Test Item Value Reference Range Interpretation Comments Glucose (test code = 2345-7) 262 mg/dL 65-99 H BUN (test code = 3094-0) 27 mg/dL 6-24 H Creatinine (test code = 1.46 mg/dL 0.76-1.27 H 2160-0) eGFR If NonAfricn Am (test 57 mL/min/1.73 >59 L code = 21673-9) eGFR If Africn Am (test code = 66 mL/min/1.73 >59 22545-4) BUN/Creatinine Ratio (test 18 9-20 code = 3097-3) Sodium (test code = 2951-2) 140 mmol/L 134-144 Potassium (test code = 2823-3) 4.4 mmol/L 3.5-5.2 Chloride (test code = 2075-0) 106 mmol/L 96-106 Carbon Dioxide, Total (test 23 mmol/L 20-29 code = 8-9) Calcium (test code = 78395-7) 8.7 mg/dL 8.7-10.2 Protein, Total (test code = 5.3 g/dL 6.0-8.5 L 2885-2) Albumin (test code = 1751-7) 3.0 g/dL 4.0-5.0 L Globulin, Total (test code = 2.3 g/dL 1.5-4.5 08628-6) A/G Ratio (test code = 1759-0) 1.3 1.2-2.2 Bilirubin, Total (test code = 0.5 mg/dL 0.0-1.2 1974-2) Alkaline Phosphatase (test 95 IU/L 39-117 code = 6768-6) AST (SGOT) (test code = 16 IU/L 0-40 1920-8) ALT (SGPT) (test code = 23 IU/L 0-44 1742-6) [facility] Description: Comp. Metabolic Panel ()2019-07-04 01:03:00 Test Item Value Reference Range Interpretation Comments Glucose (test code = 2345-7) 262 mg/dL 65-99 H BUN (test code = 3094-0) 27 mg/dL 6-24 H Creatinine (test code = 1.46 mg/dL 0.76-1.27 H 2160-0) eGFR If NonAfricn Am (test 57 mL/min/1.73 >59 L code = 06125-4) eGFR If Africn Am (test code = 66 mL/min/1.73 >59 94885-7) BUN/Creatinine Ratio (test 18 9-20 code = 3097-3) Sodium (test code = 2951-2) 140 mmol/L 134-144 Potassium (test code = 2823-3) 4.4 mmol/L 3.5-5.2 Chloride (test code = 2075-0) 106 mmol/L 96-106 Carbon Dioxide, Total (test 23 mmol/L 20-29 code = 8-9) Calcium (test code = 92506-8) 8.7 mg/dL 8.7-10.2 Protein, Total (test code = 5.3 g/dL 6.0-8.5 L 2885-2) Albumin (test code = 1751-7) 3.0 g/dL 4.0-5.0 L Globulin, Total (test code = 2.3 g/dL 1.5-4.5 08370-4) A/G Ratio (test code = 1759-0) 1.3 1.2-2.2 Bilirubin, Total (test code = 0.5 mg/dL 0.0-1.2 1974-04) Alkaline Phosphatase (test 95 IU/L 39-117 code = 6768-6) AST (SGOT) (test code = 16 IU/L 0-40 1920-8) ALT (SGPT) (test code = 23 IU/L 0-44 1742-6) [facility] Description: Comp. Metabolic Panel (142019-07-04 01:03:00 Test Item Value Reference Range Interpretation Comments Glucose (test code = 2345-7) 262 mg/dL 65-99 H BUN (test code = 3094-0) 27 mg/dL 6-24 H Creatinine (test code = 1.46 mg/dL 0.76-1.27 H 2160-0) eGFR If NonAfricn Am (test 57 mL/min/1.73 >59 L code = 51646-3) eGFR If Africn Am (test code = 66 mL/min/1.73 >59 65388-1) BUN/Creatinine Ratio (test 18 9-20 code = 3097-3) Sodium (test code = 2951-2) 140 mmol/L 134-144 Potassium (test code = 2823-3) 4.4 mmol/L 3.5-5.2 Chloride (test code = 2075-0) 106 mmol/L 96-106 Carbon Dioxide, Total (test 23 mmol/L 20-29 code = 8-9) Calcium (test code = 35399-0) 8.7 mg/dL 8.7-10.2 Protein, Total (test code = 5.3 g/dL 6.0-8.5 L 2885-2) Albumin (test code = 1751-7) 3.0 g/dL 4.0-5.0 L Globulin, Total (test code = 2.3 g/dL 1.5-4.5 51644-5) A/G Ratio (test code = 1759-0) 1.3 1.2-2.2 Bilirubin, Total (test code = 0.5 mg/dL 0.0-1.2 1974-04) Alkaline Phosphatase (test 95 IU/L 39-117 code = 6768-6) AST (SGOT) (test code = 16 IU/L 0-40 1920-8) ALT (SGPT) (test code = 23 IU/L 0-44 1742-6) [facility] Description: Comp. Metabolic Panel (14)2019-07-04 01:03:00 Test Item Value Reference Range Interpretation Comments Glucose (test code = 2345-7) 262 mg/dL 65-99 H BUN (test code = 3094-0) 27 mg/dL 6-24 H Creatinine (test code = 1.46 mg/dL 0.76-1.27 H 2160-0) eGFR If NonAfricn Am (test 57 mL/min/1.73 >59 L code = 47684-6) eGFR If Africn Am (test code = 66 mL/min/1.73 >59 13790-7) BUN/Creatinine Ratio (test 18 9-20 code = 3097-3) Sodium (test code = 2951-2) 140 mmol/L 134-144 Potassium (test code = 2823-3) 4.4 mmol/L 3.5-5.2 Chloride (test code = 2075-0) 106 mmol/L 96-106 Carbon Dioxide, Total (test 23 mmol/L 20-29 code = 2028-9) Calcium (test code = 47492-5) 8.7 mg/dL 8.7-10.2 Protein, Total (test code = 5.3 g/dL 6.0-8.5 L 2885-2) Albumin (test code = 1751-7) 3.0 g/dL 4.0-5.0 L Globulin, Total (test code = 2.3 g/dL 1.5-4.5 77500-7) A/G Ratio (test code = 1759-0) 1.3 1.2-2.2 Bilirubin, Total (test code = 0.5 mg/dL 0.0-1.2 1975-2) Alkaline Phosphatase (test 95 IU/L 39-117 code = 6768-6) AST (SGOT) (test code = 16 IU/L 0-40 1920-8) ALT (SGPT) (test code = 23 IU/L 0-44 1742-6) [facility] Description: Comp. Metabolic Panel (14)2019-07-04 01:03:00 Test Item Value Reference Range Interpretation Comments Glucose (test code = 2345-7) 262 mg/dL 65-99 H BUN (test code = 3094-0) 27 mg/dL 6-24 H Creatinine (test code = 1.46 mg/dL 0.76-1.27 H 2160-0) eGFR If NonAfricn Am (test 57 mL/min/1.73 >59 L code = 04820-0) eGFR If Africn Am (test code = 66 mL/min/1.73 >59 26404-6) BUN/Creatinine Ratio (test 18 9-20 code = 3097-3) Sodium (test code = 2951-2) 140 mmol/L 134-144 Potassium (test code = 2823-3) 4.4 mmol/L 3.5-5.2 Chloride (test code = 2075-0) 106 mmol/L 96-106 Carbon Dioxide, Total (test 23 mmol/L 20-29 code = 2028-9) Calcium (test code = 59912-9) 8.7 mg/dL 8.7-10.2 Protein, Total (test code = 5.3 g/dL 6.0-8.5 L 2885-2) Albumin (test code = 1751-7) 3.0 g/dL 4.0-5.0 L Globulin, Total (test code = 2.3 g/dL 1.5-4.5 94000-1) A/G Ratio (test code = 1759-0) 1.3 1.2-2.2 Bilirubin, Total (test code = 0.5 mg/dL 0.0-1.2 1975-2) Alkaline Phosphatase (test 95 IU/L 39-117 code = 6768-6) AST (SGOT) (test code = 16 IU/L 0-40 1920-8) ALT (SGPT) (test code = 23 IU/L 0-44 1742-6) [facility] Description: Hemoglobin A1c/Hemoglobin.total in Blood 2019-04-05 09:29:00 Test Item Value Reference Range Interpretation Comments Hemoglobin A1c (test code 9.9 % 4.8-5.6 H = 4548-4) . Prediabetes: 5. 7 - 6.4 Diabetes : >6.4 Glycemic control for adults with diabetes: <7.0

P erformed by:
[facility] ([place])

[facility] Description: Hemoglobin A1c/Hemoglobin.total in Blood 2019-04-05 09:29:00 Test Item Value Reference Range Interpretation Comments Hemoglobin A1c (test code 9.9 % 4.8-5.6 H = 4548-4) . Prediabetes: 5. 7 - 6.4 Diabetes : >6.4 Glycemic control for adults with diabetes: <7.0

P erformed by:
[facility] ()

[facility] Description: Hemoglobin A1c/Hemoglobin.total in Blood 2019-04-05 09:29:00 Test Item Value Reference Range Interpretation Comments Hemoglobin A1c (test code 9.9 % 4.8-5.6 H = 4548-4) . Prediabetes: 5. 7 - 6.4 Diabetes : >6.4 Glycemic control for adults with diabetes: <7.0

P erformed by:
[facility] ()

[facility] Description: Hemoglobin A1c/Hemoglobin.total in Blood 2019-04-05 09:29:00 Test Item Value Reference Range Interpretation Comments Hemoglobin A1c (test code 9.9 % 4.8-5.6 H = 4548-4) . Prediabetes: 5. 7 - 6.4 Diabetes : >6.4 Glycemic control for adults with diabetes: <7.0

P erformed by:
[facility] ()

[facility] Description: Hemoglobin A1c/Hemoglobin.total in Blood 2019-04-05 09:29:00 Test Item Value Reference Range Interpretation Comments Hemoglobin A1c (test code 9.9 % 4.8-5.6 H = 4548-4) . Prediabetes: 5. 7 - 6.4 Diabetes : >6.4 Glycemic control for adults with diabetes: <7.0

P erformed by:
[facility] ()

[facility] Description: Hemoglobin A1c/Hemoglobin.total in Blood 2019-04-05 09:29:00 Test Item Value Reference Range Interpretation Comments Hemoglobin A1c (test code 9.9 % 4.8-5.6 H = 4548-4) . Prediabetes: 5. 7 - 6.4 Diabetes : >6.4 Glycemic control for adults with diabetes: <7.0

P erformed by:
[facility] ([place])

[facility] Description: Hemoglobin A1c/Hemoglobin.total in Blood 2019-04-05 09:29:00 Test Item Value Reference Range Interpretation Comments Hemoglobin A1c (test code 9.9 % 4.8-5.6 H = 4548-4) . Prediabetes: 5. 7 - 6.4 Diabetes : >6.4 Glycemic control for adults with diabetes: <7.0

P erformed by:
[facility] ([place])

[facility] Description: Hemoglobin A1c/Hemoglobin.total in Blood 2019-04-05 09:29:00 Test Item Value Reference Range Interpretation Comments Hemoglobin A1c (test code 9.9 % 4.8-5.6 H = 4548-4) . Prediabetes: 5. 7 - 6.4 Diabetes : >6.4 Glycemic control for adults with diabetes: <7.0

P erformed by:
[facility] ([place])

[facility] Description: Hemoglobin A1c/Hemoglobin.total in Blood 2019-04-05 09:29:00 Test Item Value Reference Range Interpretation Comments Hemoglobin A1c (test code 9.9 % 4.8-5.6 H = 4548-4) . Prediabetes: 5. 7 - 6.4 Diabetes : >6.4 Glycemic control for adults with diabetes: <7.0

P erformed by:
[facility] ([place])

[facility] Description: Hemoglobin A1c/Hemoglobin.total in Blood 2019-04-05 09:29:00 Test Item Value Reference Range Interpretation Comments Hemoglobin A1c (test code 9.9 % 4.8-5.6 H = 4548-4) . Prediabetes: 5. 7 - 6.4 Diabetes : >6.4 Glycemic control for adults with diabetes: <7.0

P erformed by:
[facility] ([place])

[facility] Description: Hemoglobin A1c/Hemoglobin.total in Blood 2019-04-05 09:29:00 Test Item Value Reference Range Interpretation Comments Hemoglobin A1c (test code 9.9 % 4.8-5.6 H = 4548-4) . Prediabetes: 5. 7 - 6.4 Diabetes : >6.4 Glycemic control for adults with diabetes: <7.0

P erformed by:
[facility] ([place])

[facility] Description: Hemoglobin A1c/Hemoglobin.total in Blood 2019-04-05 09:29:00 Test Item Value Reference Range Interpretation Comments Hemoglobin A1c (test code 9.9 % 4.8-5.6 H = 4548-4) . Prediabetes: 5. 7 - 6.4 Diabetes : >6.4 Glycemic control for adults with diabetes: <7.0

P erformed by:
[facility] ([place])

[facility] Description: Hemoglobin A1c/Hemoglobin.total in Blood 2019-04-05 09:29:00 Test Item Value Reference Range Interpretation Comments Hemoglobin A1c (test code 9.9 % 4.8-5.6 H = 4548-4) . Prediabetes: 5. 7 - 6.4 Diabetes : >6.4 Glycemic control for adults with diabetes: <7.0

P erformed by:
[facility] ([place])

[facility] Description: Hemoglobin A1c/Hemoglobin.total in Blood 2019-04-05 09:29:00 Test Item Value Reference Range Interpretation Comments Hemoglobin A1c (test code 9.9 % 4.8-5.6 H = 4548-4) . Prediabetes: 5. 7 - 6.4 Diabetes : >6.4 Glycemic control for adults with diabetes: <7.0

P erformed by:
[facility] ([place])

[facility] Description: Hemoglobin A1c/Hemoglobin.total in Blood 2019-04-05 09:29:00 Test Item Value Reference Range Interpretation Comments Hemoglobin A1c (test code 9.9 % 4.8-5.6 H = 4548-4) . Prediabetes: 5. 7 - 6.4 Diabetes : >6.4 Glycemic control for adults with diabetes: <7.0

P erformed by:
[facility] ([place])

[facility] Description: Hemoglobin A1c/Hemoglobin.total in Blood 2019-04-05 09:29:00 Test Item Value Reference Range Interpretation Comments Hemoglobin A1c (test code 9.9 % 4.8-5.6 H = 4548-4) . Prediabetes: 5. 7 - 6.4 Diabetes : >6.4 Glycemic control for adults with diabetes: <7.0

P erformed by:
[facility] ()

[facility] Description: Hemoglobin A1c/Hemoglobin.total in Blood 2019-04-05 09:29:00 Test Item Value Reference Range Interpretation Comments Hemoglobin A1c (test code 9.9 % 4.8-5.6 H = 4548-4) . Prediabetes: 5. 7 - 6.4 Diabetes : >6.4 Glycemic control for adults with diabetes: <7.0

P erformed by:
[facility] ()

[facility] Description: Lipid [id number] 02:47:00 Test Item Value Reference Range Interpretation Comments Cholesterol, Total (test code = 392 mg/dL 100-199 H 3-3) Triglycerides (test code = 2571-8) 159 mg/dL 0-149 H HDL Cholesterol (test code = 42 mg/dL >39 5-9) VLDL Cholesterol Renuka (test code = 32 mg/dL 5-40 14717-8) LDL Cholesterol Calc (test code = 318 mg/dL 0-99 H 49299-3) Comment: (test code = 34406-0) [facility] Description: Lipid [id number] 02:47:00 Test Item Value Reference Range Interpretation Comments Cholesterol, Total (test code = 392 mg/dL 100-199 H 2093-3) Triglycerides (test code = 2571-8) 159 mg/dL 0-149 H HDL Cholesterol (test code = 42 mg/dL >39 2085-9) VLDL Cholesterol Renuka (test code = 32 mg/dL 5-40 03764-3) LDL Cholesterol Calc (test code = 318 mg/dL 0-99 H 17209-7) Comment: (test code = 33331-4) [facility] Description: Lipid [id number] 02:47:00 Test Item Value Reference Range Interpretation Comments Cholesterol, Total (test code = 392 mg/dL 100-199 H 2093-3) Triglycerides (test code = 2571-8) 159 mg/dL 0-149 H HDL Cholesterol (test code = 42 mg/dL >39 2085-9) VLDL Cholesterol Renuka (test code = 32 mg/dL 5-40 28971-0) LDL Cholesterol Calc (test code = 318 mg/dL 0-99 H 38829-7) Comment: (test code = 99088-5) [facility] Description: Lipid [id number] 02:47:00 Test Item Value Reference Range Interpretation Comments Cholesterol, Total (test code = 392 mg/dL 100-199 H 2093-3) Triglycerides (test code = 2571-8) 159 mg/dL 0-149 H HDL Cholesterol (test code = 42 mg/dL >39 2085-9) VLDL Cholesterol Renuka (test code = 32 mg/dL 5-40 88812-8) LDL Cholesterol Calc (test code = 318 mg/dL 0-99 H 32949-8) Comment: (test code = 45685-1) [facility] Description: Lipid [id number] 02:47:00 Test Item Value Reference Range Interpretation Comments Cholesterol, Total (test code = 392 mg/dL 100-199 H 2093-3) Triglycerides (test code = 2571-8) 159 mg/dL 0-149 H HDL Cholesterol (test code = 42 mg/dL >39 2085-9) VLDL Cholesterol Renuka (test code = 32 mg/dL 5-40 25207-4) LDL Cholesterol Calc (test code = 318 mg/dL 0-99 H 06027-3) Comment: (test code = 16250-6) [facility] Description: Lipid [id number] 02:47:00 Test Item Value Reference Range Interpretation Comments Cholesterol, Total (test code = 392 mg/dL 100-199 H 2093-3) Triglycerides (test code = 2571-8) 159 mg/dL 0-149 H HDL Cholesterol (test code = 42 mg/dL >39 2085-9) VLDL Cholesterol Renuka (test code = 32 mg/dL 5-40 03651-3) LDL Cholesterol Calc (test code = 318 mg/dL 0-99 H 94606-9) Comment: (test code = 53540-1) [facility] Description: Lipid [id number] 02:47:00 Test Item Value Reference Range Interpretation Comments Cholesterol, Total (test code = 392 mg/dL 100-199 H 2093-3) Triglycerides (test code = 2571-8) 159 mg/dL 0-149 H HDL Cholesterol (test code = 42 mg/dL >39 2085-9) VLDL Cholesterol Renuka (test code = 32 mg/dL 5-40 04206-0) LDL Cholesterol Calc (test code = 318 mg/dL 0-99 H 46823-9) Comment: (test code = 03196-6) [facility] Description: Lipid [id number] 02:47:00 Test Item Value Reference Range Interpretation Comments Cholesterol, Total (test code = 392 mg/dL 100-199 H 2093-3) Triglycerides (test code = 2571-8) 159 mg/dL 0-149 H HDL Cholesterol (test code = 42 mg/dL >39 2085-9) VLDL Cholesterol Renuka (test code = 32 mg/dL 5-40 18558-1) LDL Cholesterol Calc (test code = 318 mg/dL 0-99 H 54892-1) Comment: (test code = 23199-1) [facility] Description: Lipid [id number] 02:47:00 Test Item Value Reference Range Interpretation Comments Cholesterol, Total (test code = 392 mg/dL 100-199 H 2093-3) Triglycerides (test code = 2571-8) 159 mg/dL 0-149 H HDL Cholesterol (test code = 42 mg/dL >39 2085-9) VLDL Cholesterol Renuka (test code = 32 mg/dL 5-40 47614-6) LDL Cholesterol Calc (test code = 318 mg/dL 0-99 H 17245-0) Comment: (test code = 72862-2) [facility] Description: Lipid [id number] 02:47:00 Test Item Value Reference Range Interpretation Comments Cholesterol, Total (test code = 392 mg/dL 100-199 H 2093-3) Triglycerides (test code = 2571-8) 159 mg/dL 0-149 H HDL Cholesterol (test code = 42 mg/dL >39 2085-9) VLDL Cholesterol Renuka (test code = 32 mg/dL 5-40 13872-1) LDL Cholesterol Calc (test code = 318 mg/dL 0-99 H 88342-2) Comment: (test code = 62891-3) [facility] Description: Lipid [id number] 02:47:00 Test Item Value Reference Range Interpretation Comments Cholesterol, Total (test code = 392 mg/dL 100-199 H 2093-3) Triglycerides (test code = 2571-8) 159 mg/dL 0-149 H HDL Cholesterol (test code = 42 mg/dL >39 2085-9) VLDL Cholesterol Renuka (test code = 32 mg/dL 5-40 10829-8) LDL Cholesterol Calc (test code = 318 mg/dL 0-99 H 08495-0) Comment: (test code = 16195-3) [facility] Description: Lipid [id number] 02:47:00 Test Item Value Reference Range Interpretation Comments Cholesterol, Total (test code = 392 mg/dL 100-199 H 2093-3) Triglycerides (test code = 2571-8) 159 mg/dL 0-149 H HDL Cholesterol (test code = 42 mg/dL >39 2085-9) VLDL Cholesterol Renuka (test code = 32 mg/dL 5-40 98731-2) LDL Cholesterol Calc (test code = 318 mg/dL 0-99 H 81434-5) Comment: (test code = 10631-3) [facility] Description: Lipid [id number] 02:47:00 Test Item Value Reference Range Interpretation Comments Cholesterol, Total (test code = 392 mg/dL 100-199 H 2093-3) Triglycerides (test code = 2571-8) 159 mg/dL 0-149 H HDL Cholesterol (test code = 42 mg/dL >39 2085-9) VLDL Cholesterol Renuka (test code = 32 mg/dL 5-40 80837-4) LDL Cholesterol Calc (test code = 318 mg/dL 0-99 H 19234-3) Comment: (test code = 90876-6) [facility] Description: Lipid [id number] 02:47:00 Test Item Value Reference Range Interpretation Comments Cholesterol, Total (test code = 392 mg/dL 100-199 H 2093-3) Triglycerides (test code = 2571-8) 159 mg/dL 0-149 H HDL Cholesterol (test code = 42 mg/dL >39 2085-9) VLDL Cholesterol Renuka (test code = 32 mg/dL 5-40 51602-1) LDL Cholesterol Calc (test code = 318 mg/dL 0-99 H 33323-4) Comment: (test code = 40777-1) [facility] Description: Lipid [id number] 02:47:00 Test Item Value Reference Range Interpretation Comments Cholesterol, Total (test code = 392 mg/dL 100-199 H 2093-3) Triglycerides (test code = 2571-8) 159 mg/dL 0-149 H HDL Cholesterol (test code = 42 mg/dL >39 2085-9) VLDL Cholesterol Renuka (test code = 32 mg/dL 5-40 73540-1) LDL Cholesterol Calc (test code = 318 mg/dL 0-99 H 52987-6) Comment: (test code = 40648-7) [facility] Description: Lipid [id number] 02:47:00 Test Item Value Reference Range Interpretation Comments Cholesterol, Total (test code = 392 mg/dL 100-199 H 2093-3) Triglycerides (test code = 2571-8) 159 mg/dL 0-149 H HDL Cholesterol (test code = 42 mg/dL >39 2085-9) VLDL Cholesterol Renuka (test code = 32 mg/dL 5-40 51510-5) LDL Cholesterol Calc (test code = 318 mg/dL 0-99 H 59606-7) Comment: (test code = 57684-1) [facility] Description: Lipid [id number] 02:47:00 Test Item Value Reference Range Interpretation Comments Cholesterol, Total (test code = 392 mg/dL 100-199 H 2093-3) Triglycerides (test code = 2571-8) 159 mg/dL 0-149 H HDL Cholesterol (test code = 42 mg/dL >39 2085-9) VLDL Cholesterol Renuka (test code = 32 mg/dL 5-40 32354-6) LDL Cholesterol Calc (test code = 318 mg/dL 0-99 H 74274-5) Comment: (test code = 37679-8) [facility] Description: Comp. Metabolic Panel (14)2019-04-05 02:37:00 Test Item Value Reference Range Interpretation Comments Glucose (test code = 219 mg/dL 65-99 H 2345-7) BUN (test code = 44 mg/dL 6-24 H 3094-0) Creatinine (test code 1.51 mg/dL 0.76-1.27 H = 2160-0) eGFR If NonAfricn Am 55 mL/min/1.73 >59 L (test code = 79773-0) eGFR If Africn Am 64 mL/min/1.73 >59 (test code = 05964-9) BUN/Creatinine Ratio 29 9-20 H (test code = 3097-3) Sodium (test code = 139 mmol/L 160-827 4363-2) Potassium (test code 4.4 mmol/L 3.5-5.2 = 2823-3) Chloride (test code = 99 mmol/L 96-106 2075-0) Carbon Dioxide, Total 28 mmol/L 20-29 (test code = 2027-9) Calcium (test code = 8.9 mg/dL 8.7-10.2 17414-9) Protein, Total (test 6.1 g/dL 6.0-8.5 code = 2885-2) Albumin (test code = 3.3 g/dL 3.5-5.5 L 1751-7) Effective April 17 0 Albumin reference interval will b e changing to: Age Male Female 0 - 7 days 3.6 - 4.9 3.6 - 4.9 8 - 30 day s 3.4 - 4.7 3.4 - 4.7 1 - 6 month 3.7 - 4.8 3.7 - 4.8 7 months - 2 years 3.9 - 5.0 3.9 - 5.0 3 - 5 yea rs 4.0 - 5.0 4.0 - 5.0 6 - 12 years 4.1 - 5.0 4.0 - 5.0 13 - 30 years 4.1 - 5.2 3.9 - 5.0 31 - 50 yea rs 4.0 - 5.0 3.8 - 4.8 51 - 60 years 3.8 - 4.9 3.8 - 4.9 61 - 70 years 3.8 - 4.8 3.8 - 4.8 71 - 80 yea rs 3.7 - 4.7 3.7 - 4.7 81 - 89 years 3.6 - 4.6 3.6 - 4.6 > 89 years 3.5 - 4.6 3.5 - 4.6

Pe rfo rmed by:
[facility] ([place])

Globulin, Total (test 2.8 g/dL 1.5-4.5 code = 32524-4) A/G Ratio (test code 1.2 1.2-2.2 = 1759-0) Bilirubin, Total 0.5 mg/dL 0.0-1.2 (test code = 1975-2) Alkaline Phosphatase 100 IU/L 39-117 (test code = 6768-6) AST (SGOT) (test code 22 IU/L 0-40 = 1920-8) ALT (SGPT) (test code 27 IU/L 0-44 = 1742-6) [facility] Description: Comp. Metabolic Panel (142019-04-05 02:37:00 Test Item Value Reference Range Interpretation Comments Glucose (test code = 219 mg/dL 65-99 H 2345-7) BUN (test code = 44 mg/dL 6-24 H 3094-0) Creatinine (test code 1.51 mg/dL 0.76-1.27 H = 2160-0) eGFR If NonAfricn Am 55 mL/min/1.73 >59 L (test code = 57878-0) eGFR If Africn Am 64 mL/min/1.73 >59 (test code = 51980-7) BUN/Creatinine Ratio 29 9-20 H (test code = 3097-3) Sodium (test code = 139 mmol/L 807-436 8653-2) Potassium (test code 4.4 mmol/L 3.5-5.2 = 2823-3) Chloride (test code = 99 mmol/L 96-106 2074-0) Carbon Dioxide, Total 28 mmol/L -29 (test code = 2027-11) Calcium (test code = 8.9 mg/dL 8.7-10.2 20549-5) Protein, Total (test 6.1 g/dL 6.0-8.5 code = 2885-2) Albumin (test code = 3.3 g/dL 3.5-5.5 L 175-7) Effective April 17 Albumin reference interval will b e changing to: Age Male Female 0 - 7 days 3.6 - 4.9 3.6 - 4.9 8 - 30 day s 3.4 - 4.7 3.4 - 4.7 1 - 6 month 3.7 - 4.8 3.7 - 4.8 7 months - 2 years 3.9 - 5.0 3.9 - 5.0 3 - 5 yea rs 4.0 - 5.0 4.0 - 5.0 6 - 12 years 4.1 - 5.0 4.0 - 5.0 13 - 30 years 4.1 - 5.2 3.9 - 5.0 31 - 50 yea rs 4.0 - 5.0 3.8 - 4.8 51 - 60 years 3.8 - 4.9 3.8 - 4.9 61 - 70 years 3.8 - 4.8 3.8 - 4.8 71 - 80 yea rs 3.7 - 4.7 3.7 - 4.7 81 - 89 years 3.6 - 4.6 3.6 - 4.6 > 89 years 3.5 - 4.6 3.5 - 4.6

Pe rfo rmed by:
[facility] ([place])

Globulin, Total (test 2.8 g/dL 1.5-4.5 code = 26092-5) A/G Ratio (test code 1.2 1.2-2.2 = 1759-0) Bilirubin, Total 0.5 mg/dL 0.0-1.2 (test code = 1974-) Alkaline Phosphatase 100 IU/L 39-117 (test code = 6768-6) AST (SGOT) (test code 22 IU/L 0-40 = 1920-8) ALT (SGPT) (test code 27 IU/L 0-44 = 1742-6) [facility] Description: Comp. Metabolic Panel (14)2019-04-05 02:37:00 Test Item Value Reference Range Interpretation Comments Glucose (test code = 219 mg/dL 65-99 H 2345-7) BUN (test code = 44 mg/dL 6-24 H 3094-0) Creatinine (test code 1.51 mg/dL 0.76-1.27 H = 2160-0) eGFR If NonAfricn Am 55 mL/min/1.73 >59 L (test code = 03592-5) eGFR If Africn Am 64 mL/min/1.73 >59 (test code = 29527-7) BUN/Creatinine Ratio 29 9-20 H (test code = 3097-3) Sodium (test code = 139 mmol/L 108-426 2099-2) Potassium (test code 4.4 mmol/L 3.5-5.2 = 2823-3) Chloride (test code = 99 mmol/L 96-106 2075-0) Carbon Dioxide, Total 28 mmol/L 20-29 (test code = 2027-9) Calcium (test code = 8.9 mg/dL 8.7-10.2 85648-6) Protein, Total (test 6.1 g/dL 6.0-8.5 code = 2885-2) Albumin (test code = 3.3 g/dL 3.5-5.5 L 1751-7) Effective April 17 0 Albumin reference interval will b e changing to: Age Male Female 0 - 7 days 3.6 - 4.9 3.6 - 4.9 8 - 30 day s 3.4 - 4.7 3.4 - 4.7 1 - 6 month 3.7 - 4.8 3.7 - 4.8 7 months - 2 years 3.9 - 5.0 3.9 - 5.0 3 - 5 yea rs 4.0 - 5.0 4.0 - 5.0 6 - 12 years 4.1 - 5.0 4.0 - 5.0 13 - 30 years 4.1 - 5.2 3.9 - 5.0 31 - 50 yea rs 4.0 - 5.0 3.8 - 4.8 51 - 60 years 3.8 - 4.9 3.8 - 4.9 61 - 70 years 3.8 - 4.8 3.8 - 4.8 71 - 80 yea rs 3.7 - 4.7 3.7 - 4.7 81 - 89 years 3.6 - 4.6 3.6 - 4.6 > 89 years 3.5 - 4.6 3.5 - 4.6

Pe rfo rmed by:
[facility] ([place])

Globulin, Total (test 2.8 g/dL 1.5-4.5 code = 23611-6) A/G Ratio (test code 1.2 1.2-2.2 = 1759-0) Bilirubin, Total 0.5 mg/dL 0.0-1.2 (test code = 1974-2) Alkaline Phosphatase 100 IU/L 39-117 (test code = 6768-6) AST (SGOT) (test code 22 IU/L 0-40 = 1920-8) ALT (SGPT) (test code 27 IU/L 0-44 = 1742-6) [facility] Description: Comp. Metabolic Panel (14)2019-04-05 02:37:00 Test Item Value Reference Range Interpretation Comments Glucose (test code = 219 mg/dL 65-99 H 2345-7) BUN (test code = 44 mg/dL 6-24 H 3094-0) Creatinine (test code 1.51 mg/dL 0.76-1.27 H = 2160-0) eGFR If NonAfricn Am 55 mL/min/1.73 >59 L (test code = 98417-8) eGFR If Africn Am 64 mL/min/1.73 >59 (test code = 73571-3) BUN/Creatinine Ratio 29 9-20 H (test code = 3097-3) Sodium (test code = 139 mmol/L 296-224 2298-2) Potassium (test code 4.4 mmol/L 3.5-5.2 = 2823-3) Chloride (test code = 99 mmol/L 96-106 2075-0) Carbon Dioxide, Total 28 mmol/L 20-29 (test code = 2027-) Calcium (test code = 8.9 mg/dL 8.7-10.2 06959-8) Protein, Total (test 6.1 g/dL 6.0-8.5 code = 2885-2) Albumin (test code = 3.3 g/dL 3.5-5.5 L 1751-7) Effective April 17 Albumin reference interval will b e changing to: Age Male Female 0 - 7 days 3.6 - 4.9 3.6 - 4.9 8 - 30 day s 3.4 - 4.7 3.4 - 4.7 1 - 6 month 3.7 - 4.8 3.7 - 4.8 7 months - 2 years 3.9 - 5.0 3.9 - 5.0 3 - 5 yea rs 4.0 - 5.0 4.0 - 5.0 6 - 12 years 4.1 - 5.0 4.0 - 5.0 13 - 30 years 4.1 - 5.2 3.9 - 5.0 31 - 50 yea rs 4.0 - 5.0 3.8 - 4.8 51 - 60 years 3.8 - 4.9 3.8 - 4.9 61 - 70 years 3.8 - 4.8 3.8 - 4.8 71 - 80 yea rs 3.7 - 4.7 3.7 - 4.7 81 - 89 years 3.6 - 4.6 3.6 - 4.6 > 89 years 3.5 - 4.6 3.5 - 4.6

Pe rfo rmed by:
[facility] ([place])

Globulin, Total (test 2.8 g/dL 1.5-4.5 code = 18896-1) A/G Ratio (test code 1.2 1.2-2.2 = 1759-0) Bilirubin, Total 0.5 mg/dL 0.0-1.2 (test code = 1974-) Alkaline Phosphatase 100 IU/L 39-117 (test code = 6768-6) AST (SGOT) (test code 22 IU/L 0-40 = 1920-8) ALT (SGPT) (test code 27 IU/L 0-44 = 1742-6) [facility] Description: Comp. Metabolic Panel (142019-04-05 02:37:00 Test Item Value Reference Range Interpretation Comments Glucose (test code = 219 mg/dL 65-99 H 2345-7) BUN (test code = 44 mg/dL 6-24 H 3094-0) Creatinine (test code 1.51 mg/dL 0.76-1.27 H = 2160-0) eGFR If NonAfricn Am 55 mL/min/1.73 >59 L (test code = 07242-4) eGFR If Africn Am 64 mL/min/1.73 >59 (test code = 24306-7) BUN/Creatinine Ratio 29 9-20 H (test code = 3097-3) Sodium (test code = 139 mmol/L 414-214 7872-2) Potassium (test code 4.4 mmol/L 3.5-5.2 = 2823-3) Chloride (test code = 99 mmol/L 96-106 2075-0) Carbon Dioxide, Total 28 mmol/L 20-29 (test code = 8-9) Calcium (test code = 8.9 mg/dL 8.7-10.2 14800-2) Protein, Total (test 6.1 g/dL 6.0-8.5 code = 2885-2) Albumin (test code = 3.3 g/dL 3.5-5.5 L 1751-7) Effective April 17 0 Albumin reference interval will b e changing to: Age Male Female 0 - 7 days 3.6 - 4.9 3.6 - 4.9 8 - 30 day s 3.4 - 4.7 3.4 - 4.7 1 - 6 month 3.7 - 4.8 3.7 - 4.8 7 months - 2 years 3.9 - 5.0 3.9 - 5.0 3 - 5 yea rs 4.0 - 5.0 4.0 - 5.0 6 - 12 years 4.1 - 5.0 4.0 - 5.0 13 - 30 years 4.1 - 5.2 3.9 - 5.0 31 - 50 yea rs 4.0 - 5.0 3.8 - 4.8 51 - 60 years 3.8 - 4.9 3.8 - 4.9 61 - 70 years 3.8 - 4.8 3.8 - 4.8 71 - 80 yea rs 3.7 - 4.7 3.7 - 4.7 81 - 89 years 3.6 - 4.6 3.6 - 4.6 > 89 years 3.5 - 4.6 3.5 - 4.6

Pe rfo rmed by:
[facility] ([place])

Globulin, Total (test 2.8 g/dL 1.5-4.5 code = 55430-4) A/G Ratio (test code 1.2 1.2-2.2 = 1759-0) Bilirubin, Total 0.5 mg/dL 0.0-1.2 (test code = 1975-2) Alkaline Phosphatase 100 IU/L 39-117 (test code = 6768-6) AST (SGOT) (test code 22 IU/L 0-40 = 1920-8) ALT (SGPT) (test code 27 IU/L 0-44 = 1742-6) [facility] Description: Comp. Metabolic Panel (14)2019-04-05 02:37:00 Test Item Value Reference Range Interpretation Comments Glucose (test code = 219 mg/dL 65-99 H 2345-7) BUN (test code = 44 mg/dL 6-24 H 3094-0) Creatinine (test code 1.51 mg/dL 0.76-1.27 H = 2160-0) eGFR If NonAfricn Am 55 mL/min/1.73 >59 L (test code = 13464-1) eGFR If Africn Am 64 mL/min/1.73 >59 (test code = 17969-4) BUN/Creatinine Ratio 29 9-20 H (test code = 3097-3) Sodium (test code = 139 mmol/L 900-493 8124-2) Potassium (test code 4.4 mmol/L 3.5-5.2 = 2823-3) Chloride (test code = 99 mmol/L 96-106 2075-0) Carbon Dioxide, Total 28 mmol/L 20-29 (test code = 2028-9) Calcium (test code = 8.9 mg/dL 8.7-10.2 26793-6) Protein, Total (test 6.1 g/dL 6.0-8.5 code = 2885-2) Albumin (test code = 3.3 g/dL 3.5-5.5 L 1751-7) Effective April 17 0 Albumin reference interval will b e changing to: Age Male Female 0 - 7 days 3.6 - 4.9 3.6 - 4.9 8 - 30 day s 3.4 - 4.7 3.4 - 4.7 1 - 6 month 3.7 - 4.8 3.7 - 4.8 7 months - 2 years 3.9 - 5.0 3.9 - 5.0 3 - 5 yea rs 4.0 - 5.0 4.0 - 5.0 6 - 12 years 4.1 - 5.0 4.0 - 5.0 13 - 30 years 4.1 - 5.2 3.9 - 5.0 31 - 50 yea rs 4.0 - 5.0 3.8 - 4.8 51 - 60 years 3.8 - 4.9 3.8 - 4.9 61 - 70 years 3.8 - 4.8 3.8 - 4.8 71 - 80 yea rs 3.7 - 4.7 3.7 - 4.7 81 - 89 years 3.6 - 4.6 3.6 - 4.6 > 89 years 3.5 - 4.6 3.5 - 4.6

Pe rfo rmed by:
[facility] ([place])

Globulin, Total (test 2.8 g/dL 1.5-4.5 code = 15141-5) A/G Ratio (test code 1.2 1.2-2.2 = 1759-0) Bilirubin, Total 0.5 mg/dL 0.0-1.2 (test code = 1974-) Alkaline Phosphatase 100 IU/L 39-117 (test code = 6768-6) AST (SGOT) (test code 22 IU/L 0-40 = 1920-8) ALT (SGPT) (test code 27 IU/L 0-44 = 1742-6) [facility] Description: Comp. Metabolic Panel (14)2019-04-05 02:37:00 Test Item Value Reference Range Interpretation Comments Glucose (test code = 219 mg/dL 65-99 H 2345-7) BUN (test code = 44 mg/dL 6-24 H 3094-0) Creatinine (test code 1.51 mg/dL 0.76-1.27 H = 2160-0) eGFR If NonAfricn Am 55 mL/min/1.73 >59 L (test code = 02442-3) eGFR If Africn Am 64 mL/min/1.73 >59 (test code = 80577-6) BUN/Creatinine Ratio 29 9-20 H (test code = 3097-3) Sodium (test code = 139 mmol/L 831-278 2290-2) Potassium (test code 4.4 mmol/L 3.5-5.2 = 2823-3) Chloride (test code = 99 mmol/L 96-106 2075-0) Carbon Dioxide, Total 28 mmol/L 20-29 (test code = 2027-9) Calcium (test code = 8.9 mg/dL 8.7-10.2 31259-3) Protein, Total (test 6.1 g/dL 6.0-8.5 code = 2885-2) Albumin (test code = 3.3 g/dL 3.5-5.5 L 1751-7) Effective April 17 0 Albumin reference interval will b e changing to: Age Male Female 0 - 7 days 3.6 - 4.9 3.6 - 4.9 8 - 30 day s 3.4 - 4.7 3.4 - 4.7 1 - 6 month 3.7 - 4.8 3.7 - 4.8 7 months - 2 years 3.9 - 5.0 3.9 - 5.0 3 - 5 yea rs 4.0 - 5.0 4.0 - 5.0 6 - 12 years 4.1 - 5.0 4.0 - 5.0 13 - 30 years 4.1 - 5.2 3.9 - 5.0 31 - 50 yea rs 4.0 - 5.0 3.8 - 4.8 51 - 60 years 3.8 - 4.9 3.8 - 4.9 61 - 70 years 3.8 - 4.8 3.8 - 4.8 71 - 80 yea rs 3.7 - 4.7 3.7 - 4.7 81 - 89 years 3.6 - 4.6 3.6 - 4.6 > 89 years 3.5 - 4.6 3.5 - 4.6

Pe rfo rmed by:
[facility] ([place])

Globulin, Total (test 2.8 g/dL 1.5-4.5 code = 44831-5) A/G Ratio (test code 1.2 1.2-2.2 = 1759-0) Bilirubin, Total 0.5 mg/dL 0.0-1.2 (test code = 1974-2) Alkaline Phosphatase 100 IU/L 39-117 (test code = 6768-6) AST (SGOT) (test code 22 IU/L 0-40 = 1920-8) ALT (SGPT) (test code 27 IU/L 0-44 = 1742-6) [facility] Description: Comp. Metabolic Panel (14)2019-04-05 02:37:00 Test Item Value Reference Range Interpretation Comments Glucose (test code = 219 mg/dL 65-99 H 2345-7) BUN (test code = 44 mg/dL 6-24 H 3094-0) Creatinine (test code 1.51 mg/dL 0.76-1.27 H = 2160-0) eGFR If NonAfricn Am 55 mL/min/1.73 >59 L (test code = 18620-2) eGFR If Africn Am 64 mL/min/1.73 >59 (test code = 73627-3) BUN/Creatinine Ratio 29 9-20 H (test code = 3097-3) Sodium (test code = 139 mmol/L 799-862 9344-2) Potassium (test code 4.4 mmol/L 3.5-5.2 = 2823-3) Chloride (test code = 99 mmol/L 96-106 2075-0) Carbon Dioxide, Total 28 mmol/L 20-29 (test code = 2027-9) Calcium (test code = 8.9 mg/dL 8.7-10.2 83430-5) Protein, Total (test 6.1 g/dL 6.0-8.5 code = 2885-2) Albumin (test code = 3.3 g/dL 3.5-5.5 L 1751-7) Effective April 17 0 Albumin reference interval will b e changing to: Age Male Female 0 - 7 days 3.6 - 4.9 3.6 - 4.9 8 - 30 day s 3.4 - 4.7 3.4 - 4.7 1 - 6 month 3.7 - 4.8 3.7 - 4.8 7 months - 2 years 3.9 - 5.0 3.9 - 5.0 3 - 5 yea rs 4.0 - 5.0 4.0 - 5.0 6 - 12 years 4.1 - 5.0 4.0 - 5.0 13 - 30 years 4.1 - 5.2 3.9 - 5.0 31 - 50 yea rs 4.0 - 5.0 3.8 - 4.8 51 - 60 years 3.8 - 4.9 3.8 - 4.9 61 - 70 years 3.8 - 4.8 3.8 - 4.8 71 - 80 yea rs 3.7 - 4.7 3.7 - 4.7 81 - 89 years 3.6 - 4.6 3.6 - 4.6 > 89 years 3.5 - 4.6 3.5 - 4.6

Pe rfo rmed by:
[facility] ([place])

Globulin, Total (test 2.8 g/dL 1.5-4.5 code = 06951-1) A/G Ratio (test code 1.2 1.2-2.2 = 1759-0) Bilirubin, Total 0.5 mg/dL 0.0-1.2 (test code = 1975-2) Alkaline Phosphatase 100 IU/L 39-117 (test code = 6768-6) AST (SGOT) (test code 22 IU/L 0-40 = 1920-8) ALT (SGPT) (test code 27 IU/L 0-44 = 1742-6) [facility] Description: Comp. Metabolic Panel (142019-04-05 02:37:00 Test Item Value Reference Range Interpretation Comments Glucose (test code = 219 mg/dL 65-99 H 2345-7) BUN (test code = 44 mg/dL 6-24 H 3094-0) Creatinine (test code 1.51 mg/dL 0.76-1.27 H = 2160-0) eGFR If NonAfricn Am 55 mL/min/1.73 >59 L (test code = 85341-6) eGFR If Africn Am 64 mL/min/1.73 >59 (test code = 13609-5) BUN/Creatinine Ratio 29 9-20 H (test code = 3097-3) Sodium (test code = 139 mmol/L 423-563 8459-2) Potassium (test code 4.4 mmol/L 3.5-5.2 = 2823-3) Chloride (test code = 99 mmol/L 96-106 2075-0) Carbon Dioxide, Total 28 mmol/L 20-29 (test code = 8-9) Calcium (test code = 8.9 mg/dL 8.7-10.2 79553-7) Protein, Total (test 6.1 g/dL 6.0-8.5 code = 2885-2) Albumin (test code = 3.3 g/dL 3.5-5.5 L 1751-7) Effective April 17 0 Albumin reference interval will b e changing to: Age Male Female 0 - 7 days 3.6 - 4.9 3.6 - 4.9 8 - 30 day s 3.4 - 4.7 3.4 - 4.7 1 - 6 month 3.7 - 4.8 3.7 - 4.8 7 months - 2 years 3.9 - 5.0 3.9 - 5.0 3 - 5 yea rs 4.0 - 5.0 4.0 - 5.0 6 - 12 years 4.1 - 5.0 4.0 - 5.0 13 - 30 years 4.1 - 5.2 3.9 - 5.0 31 - 50 yea rs 4.0 - 5.0 3.8 - 4.8 51 - 60 years 3.8 - 4.9 3.8 - 4.9 61 - 70 years 3.8 - 4.8 3.8 - 4.8 71 - 80 yea rs 3.7 - 4.7 3.7 - 4.7 81 - 89 years 3.6 - 4.6 3.6 - 4.6 > 89 years 3.5 - 4.6 3.5 - 4.6

Pe rfo rmed by:
[facility] ([place])

Globulin, Total (test 2.8 g/dL 1.5-4.5 code = 83600-6) A/G Ratio (test code 1.2 1.2-2.2 = 1759-0) Bilirubin, Total 0.5 mg/dL 0.0-1.2 (test code = 1975-2) Alkaline Phosphatase 100 IU/L 39-117 (test code = 6768-6) AST (SGOT) (test code 22 IU/L 0-40 = 1920-8) ALT (SGPT) (test code 27 IU/L 0-44 = 1742-6) [facility] Description: Comp. Metabolic Panel (14)2019-04-05 02:37:00 Test Item Value Reference Range Interpretation Comments Glucose (test code = 219 mg/dL 65-99 H 2345-7) BUN (test code = 44 mg/dL 6-24 H 3094-0) Creatinine (test code 1.51 mg/dL 0.76-1.27 H = 2160-0) eGFR If NonAfricn Am 55 mL/min/1.73 >59 L (test code = 10278-9) eGFR If Africn Am 64 mL/min/1.73 >59 (test code = 42663-8) BUN/Creatinine Ratio 29 9-20 H (test code = 3097-3) Sodium (test code = 139 mmol/L 564-725 3692-2) Potassium (test code 4.4 mmol/L 3.5-5.2 = 2823-3) Chloride (test code = 99 mmol/L 96-106 2075-0) Carbon Dioxide, Total 28 mmol/L 20-29 (test code = 2027-9) Calcium (test code = 8.9 mg/dL 8.7-10.2 13858-8) Protein, Total (test 6.1 g/dL 6.0-8.5 code = 2885-2) Albumin (test code = 3.3 g/dL 3.5-5.5 L 1751-7) Effective April 17 0 Albumin reference interval will b e changing to: Age Male Female 0 - 7 days 3.6 - 4.9 3.6 - 4.9 8 - 30 day s 3.4 - 4.7 3.4 - 4.7 1 - 6 month 3.7 - 4.8 3.7 - 4.8 7 months - 2 years 3.9 - 5.0 3.9 - 5.0 3 - 5 yea rs 4.0 - 5.0 4.0 - 5.0 6 - 12 years 4.1 - 5.0 4.0 - 5.0 13 - 30 years 4.1 - 5.2 3.9 - 5.0 31 - 50 yea rs 4.0 - 5.0 3.8 - 4.8 51 - 60 years 3.8 - 4.9 3.8 - 4.9 61 - 70 years 3.8 - 4.8 3.8 - 4.8 71 - 80 yea rs 3.7 - 4.7 3.7 - 4.7 81 - 89 years 3.6 - 4.6 3.6 - 4.6 > 89 years 3.5 - 4.6 3.5 - 4.6

Pe rfo rmed by:
[facility] ([place])

Globulin, Total (test 2.8 g/dL 1.5-4.5 code = 94243-1) A/G Ratio (test code 1.2 1.2-2.2 = 1759-0) Bilirubin, Total 0.5 mg/dL 0.0-1.2 (test code = 1975-2) Alkaline Phosphatase 100 IU/L 39-117 (test code = 6768-6) AST (SGOT) (test code 22 IU/L 0-40 = 1920-8) ALT (SGPT) (test code 27 IU/L 0-44 = 1742-6) [facility] Description: Comp. Metabolic Panel (142019-04-05 02:37:00 Test Item Value Reference Range Interpretation Comments Glucose (test code = 219 mg/dL 65-99 H 2345-7) BUN (test code = 44 mg/dL 6-24 H 3094-0) Creatinine (test code 1.51 mg/dL 0.76-1.27 H = 2160-0) eGFR If NonAfricn Am 55 mL/min/1.73 >59 L (test code = 17841-1) eGFR If Africn Am 64 mL/min/1.73 >59 (test code = 14920-1) BUN/Creatinine Ratio 29 9-20 H (test code = 3097-3) Sodium (test code = 139 mmol/L 241-888 9795-2) Potassium (test code 4.4 mmol/L 3.5-5.2 = 2823-3) Chloride (test code = 99 mmol/L 96-106 2075-0) Carbon Dioxide, Total 28 mmol/L 20-29 (test code = 2027-9) Calcium (test code = 8.9 mg/dL 8.7-10.2 00762-4) Protein, Total (test 6.1 g/dL 6.0-8.5 code = 2885-2) Albumin (test code = 3.3 g/dL 3.5-5.5 L 1751-7) Effective April 17 0 Albumin reference interval will b e changing to: Age Male Female 0 - 7 days 3.6 - 4.9 3.6 - 4.9 8 - 30 day s 3.4 - 4.7 3.4 - 4.7 1 - 6 month 3.7 - 4.8 3.7 - 4.8 7 months - 2 years 3.9 - 5.0 3.9 - 5.0 3 - 5 yea rs 4.0 - 5.0 4.0 - 5.0 6 - 12 years 4.1 - 5.0 4.0 - 5.0 13 - 30 years 4.1 - 5.2 3.9 - 5.0 31 - 50 yea rs 4.0 - 5.0 3.8 - 4.8 51 - 60 years 3.8 - 4.9 3.8 - 4.9 61 - 70 years 3.8 - 4.8 3.8 - 4.8 71 - 80 yea rs 3.7 - 4.7 3.7 - 4.7 81 - 89 years 3.6 - 4.6 3.6 - 4.6 > 89 years 3.5 - 4.6 3.5 - 4.6

Pe rfo rmed by:
[facility] ([place])

Globulin, Total (test 2.8 g/dL 1.5-4.5 code = 42916-6) A/G Ratio (test code 1.2 1.2-2.2 = 1759-0) Bilirubin, Total 0.5 mg/dL 0.0-1.2 (test code = 1974-2) Alkaline Phosphatase 100 IU/L 39-117 (test code = 6768-6) AST (SGOT) (test code 22 IU/L 0-40 = 1920-8) ALT (SGPT) (test code 27 IU/L 0-44 = 1742-6) [facility] Description: Comp. Metabolic Panel (14)2019-04-05 02:37:00 Test Item Value Reference Range Interpretation Comments Glucose (test code = 219 mg/dL 65-99 H 2345-7) BUN (test code = 44 mg/dL 6-24 H 3094-0) Creatinine (test code 1.51 mg/dL 0.76-1.27 H = 2160-0) eGFR If NonAfricn Am 55 mL/min/1.73 >59 L (test code = 59552-0) eGFR If Africn Am 64 mL/min/1.73 >59 (test code = 83382-0) BUN/Creatinine Ratio 29 9-20 H (test code = 3097-3) Sodium (test code = 139 mmol/L 056-055 3591-2) Potassium (test code 4.4 mmol/L 3.5-5.2 = 2823-3) Chloride (test code = 99 mmol/L 96-106 2075-0) Carbon Dioxide, Total 28 mmol/L 20-29 (test code = 2027-9) Calcium (test code = 8.9 mg/dL 8.7-10.2 37823-6) Protein, Total (test 6.1 g/dL 6.0-8.5 code = 2885-2) Albumin (test code = 3.3 g/dL 3.5-5.5 L 1751-7) Effective April 17 0 Albumin reference interval will b e changing to: Age Male Female 0 - 7 days 3.6 - 4.9 3.6 - 4.9 8 - 30 day s 3.4 - 4.7 3.4 - 4.7 1 - 6 month 3.7 - 4.8 3.7 - 4.8 7 months - 2 years 3.9 - 5.0 3.9 - 5.0 3 - 5 yea rs 4.0 - 5.0 4.0 - 5.0 6 - 12 years 4.1 - 5.0 4.0 - 5.0 13 - 30 years 4.1 - 5.2 3.9 - 5.0 31 - 50 yea rs 4.0 - 5.0 3.8 - 4.8 51 - 60 years 3.8 - 4.9 3.8 - 4.9 61 - 70 years 3.8 - 4.8 3.8 - 4.8 71 - 80 yea rs 3.7 - 4.7 3.7 - 4.7 81 - 89 years 3.6 - 4.6 3.6 - 4.6 > 89 years 3.5 - 4.6 3.5 - 4.6

Pe rfo rmed by:
[facility] ([place])

Globulin, Total (test 2.8 g/dL 1.5-4.5 code = 97948-1) A/G Ratio (test code 1.2 1.2-2.2 = 1759-0) Bilirubin, Total 0.5 mg/dL 0.0-1.2 (test code = 1975-2) Alkaline Phosphatase 100 IU/L 39-117 (test code = 6768-6) AST (SGOT) (test code 22 IU/L 0-40 = 1920-8) ALT (SGPT) (test code 27 IU/L 0-44 = 1742-6) [facility] Description: Comp. Metabolic Panel (14)2019-04-05 02:37:00 Test Item Value Reference Range Interpretation Comments Glucose (test code = 219 mg/dL 65-99 H 2345-7) BUN (test code = 44 mg/dL 6-24 H 3094-0) Creatinine (test code 1.51 mg/dL 0.76-1.27 H = 2160-0) eGFR If NonAfricn Am 55 mL/min/1.73 >59 L (test code = 72035-8) eGFR If Africn Am 64 mL/min/1.73 >59 (test code = 33859-4) BUN/Creatinine Ratio 29 9-20 H (test code = 3097-3) Sodium (test code = 139 mmol/L 197-548 4050-2) Potassium (test code 4.4 mmol/L 3.5-5.2 = 2823-3) Chloride (test code = 99 mmol/L 96-106 2075-0) Carbon Dioxide, Total 28 mmol/L 20-29 (test code = 2027-9) Calcium (test code = 8.9 mg/dL 8.7-10.2 25417-4) Protein, Total (test 6.1 g/dL 6.0-8.5 code = 2885-2) Albumin (test code = 3.3 g/dL 3.5-5.5 L 1751-7) Effective April 17 0 Albumin reference interval will b e changing to: Age Male Female 0 - 7 days 3.6 - 4.9 3.6 - 4.9 8 - 30 day s 3.4 - 4.7 3.4 - 4.7 1 - 6 month 3.7 - 4.8 3.7 - 4.8 7 months - 2 years 3.9 - 5.0 3.9 - 5.0 3 - 5 yea rs 4.0 - 5.0 4.0 - 5.0 6 - 12 years 4.1 - 5.0 4.0 - 5.0 13 - 30 years 4.1 - 5.2 3.9 - 5.0 31 - 50 yea rs 4.0 - 5.0 3.8 - 4.8 51 - 60 years 3.8 - 4.9 3.8 - 4.9 61 - 70 years 3.8 - 4.8 3.8 - 4.8 71 - 80 yea rs 3.7 - 4.7 3.7 - 4.7 81 - 89 years 3.6 - 4.6 3.6 - 4.6 > 89 years 3.5 - 4.6 3.5 - 4.6

Pe rfo rmed by:
[facility] ([place])

Globulin, Total (test 2.8 g/dL 1.5-4.5 code = 40639-5) A/G Ratio (test code 1.2 1.2-2.2 = 1759-0) Bilirubin, Total 0.5 mg/dL 0.0-1.2 (test code = 1975-2) Alkaline Phosphatase 100 IU/L 39-117 (test code = 6768-6) AST (SGOT) (test code 22 IU/L 0-40 = 1920-8) ALT (SGPT) (test code 27 IU/L 0-44 = 1742-6) [facility] Description: Comp. Metabolic Panel (14)2019-04-05 02:37:00 Test Item Value Reference Range Interpretation Comments Glucose (test code = 219 mg/dL 65-99 H 2345-7) BUN (test code = 44 mg/dL 6-24 H 3094-0) Creatinine (test code 1.51 mg/dL 0.76-1.27 H = 2160-0) eGFR If NonAfricn Am 55 mL/min/1.73 >59 L (test code = 06008-2) eGFR If Africn Am 64 mL/min/1.73 >59 (test code = 79278-6) BUN/Creatinine Ratio 29 9-20 H (test code = 3097-3) Sodium (test code = 139 mmol/L 021-718 2655-2) Potassium (test code 4.4 mmol/L 3.5-5.2 = 2823-3) Chloride (test code = 99 mmol/L 96-106 2075-0) Carbon Dioxide, Total 28 mmol/L 20-29 (test code = 2027-9) Calcium (test code = 8.9 mg/dL 8.7-10.2 98690-6) Protein, Total (test 6.1 g/dL 6.0-8.5 code = 2885-2) Albumin (test code = 3.3 g/dL 3.5-5.5 L 1751-7) Effective April 17 0 Albumin reference interval will b e changing to: Age Male Female 0 - 7 days 3.6 - 4.9 3.6 - 4.9 8 - 30 day s 3.4 - 4.7 3.4 - 4.7 1 - 6 month 3.7 - 4.8 3.7 - 4.8 7 months - 2 years 3.9 - 5.0 3.9 - 5.0 3 - 5 yea rs 4.0 - 5.0 4.0 - 5.0 6 - 12 years 4.1 - 5.0 4.0 - 5.0 13 - 30 years 4.1 - 5.2 3.9 - 5.0 31 - 50 yea rs 4.0 - 5.0 3.8 - 4.8 51 - 60 years 3.8 - 4.9 3.8 - 4.9 61 - 70 years 3.8 - 4.8 3.8 - 4.8 71 - 80 yea rs 3.7 - 4.7 3.7 - 4.7 81 - 89 years 3.6 - 4.6 3.6 - 4.6 > 89 years 3.5 - 4.6 3.5 - 4.6

Pe rfo rmed by:
[facility] ([place])

Globulin, Total (test 2.8 g/dL 1.5-4.5 code = 12223-6) A/G Ratio (test code 1.2 1.2-2.2 = 1759-0) Bilirubin, Total 0.5 mg/dL 0.0-1.2 (test code = 1975-2) Alkaline Phosphatase 100 IU/L 39-117 (test code = 6768-6) AST (SGOT) (test code 22 IU/L 0-40 = 1920-8) ALT (SGPT) (test code 27 IU/L 0-44 = 1742-6) [facility] Description: Comp. Metabolic Panel (2019-04-05 02:37:00 Test Item Value Reference Range Interpretation Comments Glucose (test code = 219 mg/dL 65-99 H 2345-7) BUN (test code = 44 mg/dL 6-24 H 3094-0) Creatinine (test code 1.51 mg/dL 0.76-1.27 H = 2160-0) eGFR If NonAfricn Am 55 mL/min/1.73 >59 L (test code = 29860-2) eGFR If Africn Am 64 mL/min/1.73 >59 (test code = 05789-3) BUN/Creatinine Ratio 29 9-20 H (test code = 3097-3) Sodium (test code = 139 mmol/L 182-756 1343-2) Potassium (test code 4.4 mmol/L 3.5-5.2 = 2823-3) Chloride (test code = 99 mmol/L 96-106 2075-0) Carbon Dioxide, Total 28 mmol/L 20-29 (test code = 2027-9) Calcium (test code = 8.9 mg/dL 8.7-10.2 15149-5) Protein, Total (test 6.1 g/dL 6.0-8.5 code = 2885-2) Albumin (test code = 3.3 g/dL 3.5-5.5 L 1751-7) Effective April 17 0 Albumin reference interval will b e changing to: Age Male Female 0 - 7 days 3.6 - 4.9 3.6 - 4.9 8 - 30 day s 3.4 - 4.7 3.4 - 4.7 1 - 6 month 3.7 - 4.8 3.7 - 4.8 7 months - 2 years 3.9 - 5.0 3.9 - 5.0 3 - 5 yea rs 4.0 - 5.0 4.0 - 5.0 6 - 12 years 4.1 - 5.0 4.0 - 5.0 13 - 30 years 4.1 - 5.2 3.9 - 5.0 31 - 50 yea rs 4.0 - 5.0 3.8 - 4.8 51 - 60 years 3.8 - 4.9 3.8 - 4.9 61 - 70 years 3.8 - 4.8 3.8 - 4.8 71 - 80 yea rs 3.7 - 4.7 3.7 - 4.7 81 - 89 years 3.6 - 4.6 3.6 - 4.6 > 89 years 3.5 - 4.6 3.5 - 4.6

Pe rfo rmed by:
[facility] ([place])

Globulin, Total (test 2.8 g/dL 1.5-4.5 code = 42737-1) A/G Ratio (test code 1.2 1.2-2.2 = 1759-0) Bilirubin, Total 0.5 mg/dL 0.0-1.2 (test code = 1975-2) Alkaline Phosphatase 100 IU/L 39-117 (test code = 6768-6) AST (SGOT) (test code 22 IU/L 0-40 = 1920-8) ALT (SGPT) (test code 27 IU/L 0-44 = 1742-6) [facility] Description: Comp. Metabolic Panel (2019-04-05 02:37:00 Test Item Value Reference Range Interpretation Comments Glucose (test code = 219 mg/dL 65-99 H 2345-7) BUN (test code = 44 mg/dL 6-24 H 3094-0) Creatinine (test code 1.51 mg/dL 0.76-1.27 H = 2160-0) eGFR If NonAfricn Am 55 mL/min/1.73 >59 L (test code = 13555-9) eGFR If Africn Am 64 mL/min/1.73 >59 (test code = 06804-3) BUN/Creatinine Ratio 29 9-20 H (test code = 3097-3) Sodium (test code = 139 mmol/L 618-258 4294-2) Potassium (test code 4.4 mmol/L 3.5-5.2 = 2823-3) Chloride (test code = 99 mmol/L 96-106 5-0) Carbon Dioxide, Total 28 mmol/L 20-29 (test code = 2027-9) Calcium (test code = 8.9 mg/dL 8.7-10.2 11584-5) Protein, Total (test 6.1 g/dL 6.0-8.5 code = 2885-2) Albumin (test code = 3.3 g/dL 3.5-5.5 L 1751-7) Effective April 17 0 Albumin reference interval will b e changing to: Age Male Female 0 - 7 days 3.6 - 4.9 3.6 - 4.9 8 - 30 day s 3.4 - 4.7 3.4 - 4.7 1 - 6 month 3.7 - 4.8 3.7 - 4.8 7 months - 2 years 3.9 - 5.0 3.9 - 5.0 3 - 5 yea rs 4.0 - 5.0 4.0 - 5.0 6 - 12 years 4.1 - 5.0 4.0 - 5.0 13 - 30 years 4.1 - 5.2 3.9 - 5.0 31 - 50 yea rs 4.0 - 5.0 3.8 - 4.8 51 - 60 years 3.8 - 4.9 3.8 - 4.9 61 - 70 years 3.8 - 4.8 3.8 - 4.8 71 - 80 yea rs 3.7 - 4.7 3.7 - 4.7 81 - 89 years 3.6 - 4.6 3.6 - 4.6 > 89 years 3.5 - 4.6 3.5 - 4.6

Pe rfo rmed by:
[facility] ([place])

Globulin, Total (test 2.8 g/dL 1.5-4.5 code = 79499-7) A/G Ratio (test code 1.2 1.2-2.2 = 1759-0) Bilirubin, Total 0.5 mg/dL 0.0-1.2 (test code = 1975-2) Alkaline Phosphatase 100 IU/L 39-117 (test code = 6768-6) AST (SGOT) (test code 22 IU/L 0-40 = 1920-8) ALT (SGPT) (test code 27 IU/L 0-44 = 1742-6) [facility] Description: Comp. Metabolic Panel ()2019-04-05 02:37:00 Test Item Value Reference Range Interpretation Comments Glucose (test code = 219 mg/dL 65-99 H 2345-7) BUN (test code = 44 mg/dL 6-24 H 3094-0) Creatinine (test code 1.51 mg/dL 0.76-1.27 H = 2160-0) eGFR If NonAfricn Am 55 mL/min/1.73 >59 L (test code = 65485-7) eGFR If Africn Am 64 mL/min/1.73 >59 (test code = 83229-1) BUN/Creatinine Ratio 29 9-20 H (test code = 3097-3) Sodium (test code = 139 mmol/L 030-487 6075-2) Potassium (test code 4.4 mmol/L 3.5-5.2 = 2823-3) Chloride (test code = 99 mmol/L 96-106 2075-0) Carbon Dioxide, Total 28 mmol/L 20-29 (test code = 2027-9) Calcium (test code = 8.9 mg/dL 8.7-10.2 43069-9) Protein, Total (test 6.1 g/dL 6.0-8.5 code = 2885-2) Albumin (test code = 3.3 g/dL 3.5-5.5 L 175-7) Effective April 17 0 Albumin reference interval will b e changing to: Age Male Female 0 - 7 days 3.6 - 4.9 3.6 - 4.9 8 - 30 day s 3.4 - 4.7 3.4 - 4.7 1 - 6 month 3.7 - 4.8 3.7 - 4.8 7 months - 2 years 3.9 - 5.0 3.9 - 5.0 3 - 5 yea rs 4.0 - 5.0 4.0 - 5.0 6 - 12 years 4.1 - 5.0 4.0 - 5.0 13 - 30 years 4.1 - 5.2 3.9 - 5.0 31 - 50 yea rs 4.0 - 5.0 3.8 - 4.8 51 - 60 years 3.8 - 4.9 3.8 - 4.9 61 - 70 years 3.8 - 4.8 3.8 - 4.8 71 - 80 yea rs 3.7 - 4.7 3.7 - 4.7 81 - 89 years 3.6 - 4.6 3.6 - 4.6 > 89 years 3.5 - 4.6 3.5 - 4.6

Pe rfo rmed by:
[facility] ([place])

Globulin, Total (test 2.8 g/dL 1.5-4.5 code = 95990-8) A/G Ratio (test code 1.2 1.2-2.2 = 1759-0) Bilirubin, Total 0.5 mg/dL 0.0-1.2 (test code = 1975-2) Alkaline Phosphatase 100 IU/L 39-117 (test code = 6768-6) AST (SGOT) (test code 22 IU/L 0-40 = 1920-8) ALT (SGPT) (test code 27 IU/L 0-44 = 1742-6) [facility]REP A [id number] 11:58:00 Test Item Value Reference Range Interpretation Comments STREP A ANTIGEN (BEAKER) (test code Negative = 556) POCT-GLUCOSE [id number] 22:44:00 Test Item Value Reference Range Interpretation Comments POC-GLUCOSE METER 431 mg/dL 70-110 HH TESTED AT [address] [facility] (test code [address] [facility] [place] = 1538) [id number] POCT-GLUCOSE [id number] 22:44:00 Test Item Value Reference Range Interpretation Comments POC-GLUCOSE METER 455 mg/dL 70-110 HH TESTED AT [address] [facility] (test code [address] [facility] [place] = 1538) [id number] URINALYSIS W/ REFLEX URINE [id number] 20:30:00 Test Item Value Reference Range Interpretation Comments COLOR (BEAKER) (test code = Yellow 470) CLARITY (BEAKER) (test code = Clear 469) SPECIFIC GRAVITY UA (BEAKER) 1.015 1.001-1.035 (test code = 468) PH UA (BEAKER) (test code = 6.0 5.0-8.0 467) PROTEIN UA (BEAKER) (test code 100 mg/dL Negative A = 464) GLUCOSE UA (BEAKER) (test code >=1000 mg/dL Negative A = 365) KETONES UA (BEAKER) (test code Negative Negative = 371) BILIRUBIN UA (BEAKER) (test Negative Negative code = 462) BLOOD UA (BEAKER) (test code = Moderate Negative A 461) NITRITE UA (BEAKER) (test code Negative Negative = 465) LEUKOCYTE ESTERASE UA (BEAKER) Negative Negative (test code = 466) UROBILINOGEN UA (BEAKER) (test 0.2 mg/dL 0.2-1.0 code = 463) BACTERIA (BEAKER) (test code = Occasional 517) RBC UA-MANUAL (BEAKER) (test 20-50 /HPF code = 1659) WBC UA-MANUAL (BEAKER) (test <5 /HPF code = 1661) SQUAMOUS EPITHELIAL MANUAL None Seen /HPF (BEAKER) (test code = 1663) SOURCE(BEAKER) (test code = 2795) COMPREHENSIVE METABOLIC [id number] 20:27:00 Test Item Value Reference Range Interpretation Comments TOTAL PROTEIN 7.4 gm/dL 6.0-8.5 (BEAKER) (test code = 770) ALBUMIN (BEAKER) 3.5 g/dL 3.5-5.0 (test code = 1145) ALKALINE PHOSPHATASE 100 U/L 30-115 (BEAKER) (test code = 346) BILIRUBIN TOTAL 0.7 mg/dL 0.1-1.2 (BEAKER) (test code = 377) SODIUM (BEAKER) (test 132 meq/L 135-148 L code = 381) POTASSIUM (BEAKER) 4.3 meq/L 3.6-5.5 (test code = 379) CHLORIDE (BEAKER) 92 meq/L 98-106 L (test code = 382) CO2 (BEAKER) (test 29 meq/L 20-29 code = 355) BLOOD UREA NITROGEN 44 mg/dL 10-26 H (BEAKER) (test code = 354) CREATININE (BEAKER) 2.37 mg/dL 0.50-1.20 H (test code = 358) GLUCOSE RANDOM 652 mg/dL 70-110 HH (BEAKER) (test code = 652) CALCIUM (BEAKER) 9.7 mg/dL 8.5-10.5 (test code = 697) AST (SGOT) (BEAKER) 29 U/L 5-40 (test code = 353) ALT (SGPT) (BEAKER) 50 U/L 5-50 (test code = 347) EGFR (BEAKER) (test 30 mL/min/1.73 ESTIMA JOSÉ LUIS GFR IS code = 1092) sq m NOT ACCURATE CREATININE CLEARANCE IN PREDICTING GLOMERULAR FILTRATION RATE . ESTIMATED GFR I S NOT APPLICABLE FOR DIALYSIS PATIEN TS. [id number] 20:27:00 Test Item Value Reference Range Interpretation Comments LIPASE (BEAKER) (test code = 749) 37 U/L 6-51 [id number] 20:23:00 Test Item Value Reference Range Interpretation Comments PROTIME (BEAKER) (test code = 759) 10.9 sec 9.3-12.0 INR (BEAKER) (test code = 370) 1.0 <=5.9 PARTIAL THROMBOPLASTIN TIME (BEAKER) 27.4 sec 23.0-35.0 (test code = 760) RECOMMENDED COUMADIN/WARFARIN INR THERAPY RANGESSTANDARD DOSE: 2.0 - 3.0 Includes: PROPHYLAXIS forvenous thrombosis, systemic embolization; TREATMENT for venous thrombosis and/or pulmonary embolus.HIGH RISK: Target INR is 2.5-3.5 for patients with mechanical heart valves.Final Information (Auto Output)Final Information (Auto Output)Final Information (Auto Output)CBC W/PLT COUNT & AUTO [id number] 20:11:00 Test Item Value Reference Range Interpretation Comments WHITE BLOOD CELL COUNT (BEAKER) 12.4 K/ L 4.0-10.0 H (test code = 775) RED BLOOD CELL COUNT (BEAKER) 5.88 M/ L 4.20-5.80 H (test code = 761) HEMOGLOBIN (BEAKER) (test code = 17.8 GM/DL 13.0-16.8 H 410) HEMATOCRIT (BEAKER) (test code = 53.0 % 36.0-50.0 H 411) MEAN CORPUSCULAR VOLUME (BEAKER) 90.1 fL 82.0-99.0 (test code = 753) MEAN CORPUSCULAR HEMOGLOBIN 30.3 pg 27.0-33.0 (BEAKER) (test code = 751) MEAN CORPUSCULAR HEMOGLOBIN CONC 33.6 GM/DL 32.0-36.0 (BEAKER) (test code = 752) RED CELL DISTRIBUTION WIDTH 12.1 % 12.0-15.0 (BEAKER) (test code = 412) PLATELET COUNT (BEAKER) (test 244 K/CU MM 150-430 code = 756) MEAN PLATELET VOLUME (BEAKER) 11.8 fL 6.0-11.5 H (test code = 754) NUCLEATED RED BLOOD CELLS 0 /100 WBC 0-0 (BEAKER) (test code = 413) NEUTROPHILS RELATIVE PERCENT 80 % (BEAKER) (test code = 429) LYMPHOCYTES RELATIVE PERCENT 10 % (BEAKER) (test code = 430) MONOCYTES RELATIVE PERCENT 7 % (BEAKER) (test code = 431) EOSINOPHILS RELATIVE PERCENT 2 % (BEAKER) (test code = 432) BASOPHILS RELATIVE PERCENT 1 % (BEAKER) (test code = 437) NEUTROPHILS ABSOLUTE COUNT 9.95 K/ L 1.80-8.00 H (BEAKER) (test code = 670) LYMPHOCYTES ABSOLUTE COUNT 1.19 K/ L 1.48-4.50 L (BEAKER) (test code = 414) MONOCYTES ABSOLUTE COUNT (BEAKER) 0.88 K/ L 0.00-1.30 (test code = 415) EOSINOPHILS ABSOLUTE COUNT 0.19 K/ L 0.00-0.50 (BEAKER) (test code = 416) BASOPHILS ABSOLUTE COUNT (BEAKER) 0.08 K/ L 0.00-0.20 (test code = 417) IMMATURE GRANULOCYTES-RELATIVE 1 % 0-0 H PERCENT (BEAKER) (test code = 2801) BASIC METABOLIC [id number] 06:52:00 Test Item Value Reference Range Interpretation Comments SODIUM (BEAKER) 139 meq/L 135-148 (test code = 381) POTASSIUM (BEAKER) 3.6 meq/L 3.6-5.5 (test code = 379) CHLORIDE (BEAKER) 100 meq/L 98-106 (test code = 382) CO2 (BEAKER) (test 28 meq/L 20-29 code = 355) BLOOD UREA NITROGEN 28 mg/dL 10-26 H (BEAKER) (test code = 354) CREATININE (BEAKER) 1.52 mg/dL 0.50-1.20 H (test code = 358) GLUCOSE RANDOM 228 mg/dL 70-110 H (BEAKER) (test code = 652) CALCIUM (BEAKER) 9.0 mg/dL 8.5-10.5 (test code = 697) EGFR (BEAKER) (test 50 mL/min/1.73 ESTIMA JOSÉ LUIS GFR IS code = 1092) sq m NOT ACCURATE CREATININE CLEARANCE IN PREDICTING GLOMERULAR FILTRATION RATE . ESTIMATED GFR I S NOT APPLICABLE FOR DIALYSIS PATIEN TS. POCT-GLUCOSE [id number] 05:58:00 Test Item Value Reference Range Interpretation Comments POC-GLUCOSE METER 222 mg/dL 70-110 H TESTED AT [facility] (BEAKER) (test code [address] [facility] [place] = 1538) [id number] POCT-GLUCOSE [id number] 20:37:00 Test Item Value Reference Range Interpretation Comments POC-GLUCOSE METER 157 mg/dL 70-110 H TESTED AT [facility] (BEAKER) (test code [address] [facility] [place] = 1538) [id number] POCT-GLUCOSE [id number] Test Item Value Reference Range Interpretation Comments POC-GLUCOSE METER 176 mg/dL 70-110 H TESTED AT [facility] (BEAKER) (test code [address] [facility] [place] = 1538) [id number] POCT-GLUCOSE [id number] 12:16:00 Test Item Value Reference Range Interpretation Comments POC-GLUCOSE METER 161 mg/dL 70-110 H TESTED AT [address] (BEAKER) (test code [address] [facility] [place] = 1538) [id number] BASIC METABOLIC [id number] 07:11:00 Test Item Value Reference Range Interpretation Comments SODIUM (BEAKER) 139 meq/L 135-148 (test code = 381) POTASSIUM (BEAKER) 3.3 meq/L 3.6-5.5 L (test code = 379) CHLORIDE (BEAKER) 100 meq/L 98-106 (test code = 382) CO2 (BEAKER) (test 33 meq/L 20-29 H code = 355) BLOOD UREA NITROGEN 24 mg/dL 10-26 (BEAKER) (test code = 354) CREATININE (BEAKER) 1.38 mg/dL 0.50-1.20 H (test code = 358) GLUCOSE RANDOM 163 mg/dL 70-110 H (BEAKER) (test code = 652) CALCIUM (BEAKER) 8.9 mg/dL 8.5-10.5 (test code = 697) EGFR (BEAKER) (test 56 mL/min/1.73 ESTIMA JOSÉ LUIS GFR IS code = 1092) sq m NOT ACCURATE CREATININE CLEARANCE IN PREDICTING GLOMERULAR FILTRATION RATE . ESTIMATED GFR I S NOT APPLICABLE FOR DIALYSIS PATIEN TS. CBC W/PLT COUNT & AUTO [id number] 06:27:00 Test Item Value Reference Range Interpretation Comments WHITE BLOOD CELL COUNT (BEAKER) 9.2 K/ L 4.0-10.0 (test code = 775) RED BLOOD CELL COUNT (BEAKER) 4.55 M/ L 4.20-5.80 (test code = 761) HEMOGLOBIN (BEAKER) (test code = 14.2 GM/DL 13.0-16.8 410) HEMATOCRIT (BEAKER) (test code = 42.1 % 36.0-50.0 411) MEAN CORPUSCULAR VOLUME (BEAKER) 92.5 fL 82.0-99.0 (test code = 753) MEAN CORPUSCULAR HEMOGLOBIN 31.2 pg 27.0-33.0 (BEAKER) (test code = 751) MEAN CORPUSCULAR HEMOGLOBIN CONC 33.7 GM/DL 32.0-36.0 (BEAKER) (test code = 752) RED CELL DISTRIBUTION WIDTH 13.7 % 12.0-15.0 (BEAKER) (test code = 412) PLATELET COUNT (BEAKER) (test 262 K/CU MM 150-430 code = 756) MEAN PLATELET VOLUME (BEAKER) 10.7 fL 6.0-11.5 (test code = 754) NUCLEATED RED BLOOD CELLS 0 /100 WBC 0-0 (BEAKER) (test code = 413) NEUTROPHILS RELATIVE PERCENT 66 % (BEAKER) (test code = 429) LYMPHOCYTES RELATIVE PERCENT 17 % (BEAKER) (test code = 430) MONOCYTES RELATIVE PERCENT 12 % (BEAKER) (test code = 431) EOSINOPHILS RELATIVE PERCENT 4 % (BEAKER) (test code = 432) BASOPHILS RELATIVE PERCENT 1 % (BEAKER) (test code = 437) NEUTROPHILS ABSOLUTE COUNT 6.08 K/ L 1.80-8.00 (BEAKER) (test code = 670) LYMPHOCYTES ABSOLUTE COUNT 1.53 K/ L 1.48-4.50 (BEAKER) (test code = 414) MONOCYTES ABSOLUTE COUNT (BEAKER) 1.08 K/ L 0.00-1.30 (test code = 415) EOSINOPHILS ABSOLUTE COUNT 0.39 K/ L 0.00-0.50 (BEAKER) (test code = 416) BASOPHILS ABSOLUTE COUNT (BEAKER) 0.07 K/ L 0.00-0.20 (test code = 417) IMMATURE GRANULOCYTES-RELATIVE 0 % 0-0 PERCENT (BEAKER) (test code = 2801) POCT-GLUCOSE [id number] 06:22:00 Test Item Value Reference Range Interpretation Comments POC-GLUCOSE METER 172 mg/dL 70-110 H TESTED AT [address] ([facility]) (test code [address] [facility] [place] = 1538) [id number] POCT-GLUCOSE [id number] 20:27:00 Test Item Value Reference Range Interpretation Comments POC-GLUCOSE METER 209 mg/dL 70-110 H TESTED AT [address] ([facility]) (test code [address] [facility] [place] = 1538) [id number] POCT-GLUCOSE [id number] 18:12:00 Test Item Value Reference Range Interpretation Comments POC-GLUCOSE METER 192 mg/dL 70-110 H TESTED AT [address] ([facility]) (test code [address] [facility] [place] = 1538) [id number] POCT-GLUCOSE [id number] 11:20:00 Test Item Value Reference Range Interpretation Comments POC-GLUCOSE METER 192 mg/dL 70-110 H TESTED AT [address] ([facility]) (test code [address] [facility] [place] = 1538) [id number] BASIC METABOLIC [id number] 07:02:00 Test Item Value Reference Range Interpretation Comments SODIUM (BEAKER) 140 meq/L 135-148 (test code = 381) POTASSIUM (BEAKER) 3.3 meq/L 3.6-5.5 L (test code = 379) CHLORIDE (BEAKER) 101 meq/L 98-106 (test code = 382) CO2 (BEAKER) (test 32 meq/L 20-29 H code = 355) BLOOD UREA NITROGEN 22 mg/dL 10-26 (BEAKER) (test code = 354) CREATININE (BEAKER) 1.33 mg/dL 0.50-1.20 H (test code = 358) GLUCOSE RANDOM 128 mg/dL 70-110 H (BEAKER) (test code = 652) CALCIUM (BEAKER) 9.1 mg/dL 8.5-10.5 (test code = 697) EGFR (BEAKER) (test 58 mL/min/1.73 ESTIMA JOSÉ LUIS GFR IS code = 1092) sq m NOT ACCURATE CREATININE CLEARANCE IN PREDICTING GLOMERULAR FILTRATION RATE . ESTIMATED GFR I S NOT APPLICABLE FOR DIALYSIS PATIEN TS. CBC W/PLT COUNT & AUTO [id number] 06:41:00 Test Item Value Reference Range Interpretation Comments WHITE BLOOD CELL COUNT (BEAKER) 9.7 K/ L 4.0-10.0 (test code = 775) RED BLOOD CELL COUNT (BEAKER) 4.69 M/ L 4.20-5.80 (test code = 761) HEMOGLOBIN (BEAKER) (test code = 14.4 GM/DL 13.0-16.8 410) HEMATOCRIT (BEAKER) (test code = 43.9 % 36.0-50.0 411) MEAN CORPUSCULAR VOLUME (BEAKER) 93.6 fL 82.0-99.0 (test code = 753) MEAN CORPUSCULAR HEMOGLOBIN 30.7 pg 27.0-33.0 (BEAKER) (test code = 751) MEAN CORPUSCULAR HEMOGLOBIN CONC 32.8 GM/DL 32.0-36.0 (BEAKER) (test code = 752) RED CELL DISTRIBUTION WIDTH 13.8 % 12.0-15.0 (BEAKER) (test code = 412) PLATELET COUNT (BEAKER) (test 263 K/CU MM 150-430 code = 756) MEAN PLATELET VOLUME (BEAKER) 11.1 fL 6.0-11.5 (test code = 754) NUCLEATED RED BLOOD CELLS 0 /100 WBC 0-0 (BEAKER) (test code = 413) NEUTROPHILS RELATIVE PERCENT 67 % (BEAKER) (test code = 429) LYMPHOCYTES RELATIVE PERCENT 17 % (BEAKER) (test code = 430) MONOCYTES RELATIVE PERCENT 11 % (BEAKER) (test code = 431) EOSINOPHILS RELATIVE PERCENT 3 % (BEAKER) (test code = 432) BASOPHILS RELATIVE PERCENT 1 % (BEAKER) (test code = 437) NEUTROPHILS ABSOLUTE COUNT 6.50 K/ L 1.80-8.00 (BEAKER) (test code = 670) LYMPHOCYTES ABSOLUTE COUNT 1.64 K/ L 1.48-4.50 (BEAKER) (test code = 414) MONOCYTES ABSOLUTE COUNT (BEAKER) 1.09 K/ L 0.00-1.30 (test code = 415) EOSINOPHILS ABSOLUTE COUNT 0.32 K/ L 0.00-0.50 (BEAKER) (test code = 416) BASOPHILS ABSOLUTE COUNT (BEAKER) 0.07 K/ L 0.00-0.20 (test code = 417) IMMATURE GRANULOCYTES-RELATIVE 0 % 0-0 PERCENT (BEAKER) (test code = 2801) POCT-GLUCOSE [id number] 06:13:00 Test Item Value Reference Range Interpretation Comments POC-GLUCOSE METER 134 mg/dL 70-110 H TESTED AT [facility] (BEAKER) (test code [address] [facility] [place] = 1538) [id number] POCT-GLUCOSE [id number] 21:38:00 Test Item Value Reference Range Interpretation Comments POC-GLUCOSE METER 114 mg/dL 70-110 H TESTED AT [facility] (BEAKER) (test code [address] [facility] [place] = 1538) [id number] POCT-GLUCOSE [id number] 16:58:00 Test Item Value Reference Range Interpretation Comments POC-GLUCOSE METER 294 mg/dL 70-110 H TESTED AT [address] [facility] (test code [address] [facility] [place] = 1538) [id number] POCT-GLUCOSE [id number] 12:03:00 Test Item Value Reference Range Interpretation Comments POC-GLUCOSE METER 157 mg/dL 70-110 H TESTED AT [address] [facility] (test code [address] [facility] [place] = 1538) [id number] POCT-GLUCOSE [id number] 06:50:00 Test Item Value Reference Range Interpretation Comments POC-GLUCOSE METER 167 mg/dL 70-110 H TESTED AT [address] [facility] (test code POINT [facility] [place] = 1538) [address] BASIC METABOLIC [id number] 05:07:00 Test Item Value Reference Range Interpretation Comments SODIUM (BEAKER) 141 meq/L 135-148 (test code = 381) POTASSIUM (BEAKER) 3.7 meq/L 3.6-5.5 (test code = 379) CHLORIDE (BEAKER) 100 meq/L 98-106 (test code = 382) CO2 (BEAKER) (test 31 meq/L 20-29 H code = 355) BLOOD UREA NITROGEN 23 mg/dL 10-26 (BEAKER) (test code = 354) CREATININE (BEAKER) 1.39 mg/dL 0.50-1.20 H (test code = 358) GLUCOSE RANDOM 174 mg/dL 70-110 H (BEAKER) (test code = 652) CALCIUM (BEAKER) 9.2 mg/dL 8.5-10.5 (test code = 697) EGFR (BEAKER) (test 56 mL/min/1.73 ESTIMA JOSÉ LUIS GFR IS code = 1092) sq m NOT ACCURATE CREATININE CLEARANCE IN PREDICTING GLOMERULAR FILTRATION RATE . ESTIMATED GFR I S NOT APPLICABLE FOR DIALYSIS PATIEN TS. [id number] 05:01:00 Test Item Value Reference Range Interpretation Comments MAGNESIUM (BEAKER) (test code = 2.0 mg/dL 1.5-3.0 627) CBC W/PLT COUNT & AUTO [id number] 04:43:00 Test Item Value Reference Range Interpretation Comments WHITE BLOOD CELL COUNT (BEAKER) 10.2 K/ L 4.0-10.0 H (test code = 775) RED BLOOD CELL COUNT (BEAKER) 4.49 M/ L 4.20-5.80 (test code = 761) HEMOGLOBIN (BEAKER) (test code = 14.2 GM/DL 13.0-16.8 410) HEMATOCRIT (BEAKER) (test code = 41.8 % 36.0-50.0 411) MEAN CORPUSCULAR VOLUME (BEAKER) 93.1 fL 82.0-99.0 (test code = 753) MEAN CORPUSCULAR HEMOGLOBIN 31.6 pg 27.0-33.0 (BEAKER) (test code = 751) MEAN CORPUSCULAR HEMOGLOBIN CONC 34.0 GM/DL 32.0-36.0 (BEAKER) (test code = 752) RED CELL DISTRIBUTION WIDTH 13.8 % 12.0-15.0 (BEAKER) (test code = 412) PLATELET COUNT (BEAKER) (test 267 K/CU MM 150-430 code = 756) MEAN PLATELET VOLUME (BEAKER) 11.5 fL 6.0-11.5 (test code = 754) NUCLEATED RED BLOOD CELLS 0 /100 WBC 0-0 (BEAKER) (test code = 413) NEUTROPHILS RELATIVE PERCENT 70 % (BEAKER) (test code = 429) LYMPHOCYTES RELATIVE PERCENT 16 % (BEAKER) (test code = 430) MONOCYTES RELATIVE PERCENT 11 % (BEAKER) (test code = 431) EOSINOPHILS RELATIVE PERCENT 3 % (BEAKER) (test code = 432) BASOPHILS RELATIVE PERCENT 1 % (BEAKER) (test code = 437) NEUTROPHILS ABSOLUTE COUNT 7.08 K/ L 1.80-8.00 (BEAKER) (test code = 670) LYMPHOCYTES ABSOLUTE COUNT 1.58 K/ L 1.48-4.50 (BEAKER) (test code = 414) MONOCYTES ABSOLUTE COUNT (BEAKER) 1.07 K/ L 0.00-1.30 (test code = 415) EOSINOPHILS ABSOLUTE COUNT 0.34 K/ L 0.00-0.50 (BEAKER) (test code = 416) BASOPHILS ABSOLUTE COUNT (BEAKER) 0.06 K/ L 0.00-0.20 (test code = 417) IMMATURE GRANULOCYTES-RELATIVE 0 % 0-0 PERCENT (BEAKER) (test code = 2801) POCT-GLUCOSE [id number] 20:37:00 Test Item Value Reference Range Interpretation Comments POC-GLUCOSE METER 212 mg/dL 70-110 H TESTED AT [address] (BEAKER) (test code POINT [facility] [place] = 1538) [id number] POCT-GLUCOSE [id number] 17:03:00 Test Item Value Reference Range Interpretation Comments POC-GLUCOSE METER 176 mg/dL 70-110 H TESTED AT [address] (BEAKER) (test code [address] [facility] [place] = 1538) [id number] POCT-GLUCOSE [id number] 12:05:00 Test Item Value Reference Range Interpretation Comments POC-GLUCOSE METER 169 mg/dL 70-110 H TESTED AT [address] (BEAKER) (test code [address] [facility] [place] = 1538) [id number] POCT-GLUCOSE [id number] 09:25:00 Test Item Value Reference Range Interpretation Comments POC-GLUCOSE METER 148 mg/dL 70-110 H TESTED AT [address] (BEAKER) (test code [address] [facility] [place] = 1538) [id number] BASIC METABOLIC [id number] 06:32:00 Test Item Value Reference Range Interpretation Comments SODIUM (BEAKER) 141 meq/L 135-148 (test code = 381) POTASSIUM (BEAKER) 3.4 meq/L 3.6-5.5 L (test code = 379) CHLORIDE (BEAKER) 103 meq/L 98-106 (test code = 382) CO2 (BEAKER) (test 29 meq/L 20-29 code = 355) BLOOD UREA NITROGEN 21 mg/dL 10-26 (BEAKER) (test code = 354) CREATININE (BEAKER) 1.25 mg/dL 0.50-1.20 H (test code = 358) GLUCOSE RANDOM 143 mg/dL 70-110 H (BEAKER) (test code = 652) CALCIUM (BEAKER) 9.2 mg/dL 8.5-10.5 (test code = 697) EGFR (BEAKER) (test 63 mL/min/1.73 ESTIMA JOSÉ LUIS GFR IS code = 1092) sq m NOT ACCURATE CREATININE CLEARANCE IN PREDICTING GLOMERULAR FILTRATION RATE . ESTIMATED GFR I S NOT APPLICABLE FOR DIALYSIS PATIEN TS. POCT-GLUCOSE [id number] 06:12:00 Test Item Value Reference Range Interpretation Comments POC-GLUCOSE METER 165 mg/dL 70-110 H TESTED AT [address] ([facility]) (test code POINT [facility] [place] = 1538) [id number] CBC W/PLT COUNT & AUTO [id number] 06:00:00 Test Item Value Reference Range Interpretation Comments WHITE BLOOD CELL COUNT (BEAKER) 8.9 K/ L 4.0-10.0 (test code = 775) RED BLOOD CELL COUNT (BEAKER) 4.57 M/ L 4.20-5.80 (test code = 761) HEMOGLOBIN (BEAKER) (test code = 14.3 GM/DL 13.0-16.8 410) HEMATOCRIT (BEAKER) (test code = 42.4 % 36.0-50.0 411) MEAN CORPUSCULAR VOLUME (BEAKER) 92.8 fL 82.0-99.0 (test code = 753) MEAN CORPUSCULAR HEMOGLOBIN 31.3 pg 27.0-33.0 (BEAKER) (test code = 751) MEAN CORPUSCULAR HEMOGLOBIN CONC 33.7 GM/DL 32.0-36.0 (BEAKER) (test code = 752) RED CELL DISTRIBUTION WIDTH 13.8 % 12.0-15.0 (BEAKER) (test code = 412) PLATELET COUNT (BEAKER) (test 258 K/CU MM 150-430 code = 756) MEAN PLATELET VOLUME (BEAKER) 10.9 fL 6.0-11.5 (test code = 754) NUCLEATED RED BLOOD CELLS 0 /100 WBC 0-0 (BEAKER) (test code = 413) NEUTROPHILS RELATIVE PERCENT 68 % (BEAKER) (test code = 429) LYMPHOCYTES RELATIVE PERCENT 18 % (BEAKER) (test code = 430) MONOCYTES RELATIVE PERCENT 10 % (BEAKER) (test code = 431) EOSINOPHILS RELATIVE PERCENT 4 % (BEAKER) (test code = 432) BASOPHILS RELATIVE PERCENT 1 % (BEAKER) (test code = 437) NEUTROPHILS ABSOLUTE COUNT 5.98 K/ L 1.80-8.00 (BEAKER) (test code = 670) LYMPHOCYTES ABSOLUTE COUNT 1.55 K/ L 1.48-4.50 (BEAKER) (test code = 414) MONOCYTES ABSOLUTE COUNT (BEAKER) 0.90 K/ L 0.00-1.30 (test code = 415) EOSINOPHILS ABSOLUTE COUNT 0.34 K/ L 0.00-0.50 (BEAKER) (test code = 416) BASOPHILS ABSOLUTE COUNT (BEAKER) 0.07 K/ L 0.00-0.20 (test code = 417) IMMATURE GRANULOCYTES-RELATIVE 0 % 0-0 PERCENT (BEAKER) (test code = 2801) POCT-GLUCOSE [id number] 21:02:00 Test Item Value Reference Range Interpretation Comments POC-GLUCOSE METER 185 mg/dL 70-110 H TESTED AT [address] ([facility]) (test code POINT [facility] [place] = 1538) [id number] POCT-GLUCOSE [id number] 16:21:00 Test Item Value Reference Range Interpretation Comments POC-GLUCOSE METER 141 mg/dL 70-110 H TESTED AT [address] ([facility]) (test code POINT [facility] [place] = 1538) [address] POCT-GLUCOSE [id number] 12:26:00 Test Item Value Reference Range Interpretation Comments POC-GLUCOSE METER 145 mg/dL 70-110 H TESTED AT [address] ([facility]) (test code POINT [facility] [place] = 1538) [id number] POCT-GLUCOSE [id number] 06:43:00 Test Item Value Reference Range Interpretation Comments POC-GLUCOSE METER 170 mg/dL 70-110 H TESTED AT [address] ([facility]) (test code POINT [facility] [place] = 1538) [id number] BASIC METABOLIC [id number] 06:39:00 Test Item Value Reference Range Interpretation Comments SODIUM (BEAKER) 140 meq/L 135-148 (test code = 381) POTASSIUM (BEAKER) 3.9 meq/L 3.6-5.5 (test code = 379) CHLORIDE (BEAKER) 104 meq/L 98-106 (test code = 382) CO2 (BEAKER) (test 30 meq/L 20-29 H code = 355) BLOOD UREA NITROGEN 20 mg/dL 10-26 (BEAKER) (test code = 354) CREATININE (BEAKER) 1.25 mg/dL 0.50-1.20 H (test code = 358) GLUCOSE RANDOM 169 mg/dL 70-110 H (BEAKER) (test code = 652) CALCIUM (BEAKER) 8.7 mg/dL 8.5-10.5 (test code = 697) EGFR (BEAKER) (test 63 mL/min/1.73 ESTIMA JOSÉ LUIS GFR IS code = 1092) sq m NOT ACCURATE CREATININE CLEARANCE IN PREDICTING GLOMERULAR FILTRATION RATE . ESTIMATED GFR I S NOT APPLICABLE FOR DIALYSIS PATIEN TS. [id number] 06:33:00 Test Item Value Reference Range Interpretation Comments MAGNESIUM (BEAKER) (test code = 1.9 mg/dL 1.5-3.0 627) CBC W/PLT COUNT & AUTO [id number] 06:10:00 Test Item Value Reference Range Interpretation Comments WHITE BLOOD CELL COUNT (BEAKER) 8.2 K/ L 4.0-10.0 (test code = 775) RED BLOOD CELL COUNT (BEAKER) 4.45 M/ L 4.20-5.80 (test code = 761) HEMOGLOBIN (BEAKER) (test code = 13.6 GM/DL 13.0-16.8 410) HEMATOCRIT (BEAKER) (test code = 42.3 % 36.0-50.0 411) MEAN CORPUSCULAR VOLUME (BEAKER) 95.1 fL 82.0-99.0 (test code = 753) MEAN CORPUSCULAR HEMOGLOBIN 30.6 pg 27.0-33.0 (BEAKER) (test code = 751) MEAN CORPUSCULAR HEMOGLOBIN CONC 32.2 GM/DL 32.0-36.0 (BEAKER) (test code = 752) RED CELL DISTRIBUTION WIDTH 13.8 % 12.0-15.0 (BEAKER) (test code = 412) PLATELET COUNT (BEAKER) (test 254 K/CU MM 150-430 code = 756) MEAN PLATELET VOLUME (BEAKER) 11.1 fL 6.0-11.5 (test code = 754) NUCLEATED RED BLOOD CELLS 0 /100 WBC 0-0 (BEAKER) (test code = 413) NEUTROPHILS RELATIVE PERCENT 66 % (BEAKER) (test code = 429) LYMPHOCYTES RELATIVE PERCENT 19 % (BEAKER) (test code = 430) MONOCYTES RELATIVE PERCENT 9 % (BEAKER) (test code = 431) EOSINOPHILS RELATIVE PERCENT 4 % (BEAKER) (test code = 432) BASOPHILS RELATIVE PERCENT 1 % (BEAKER) (test code = 437) NEUTROPHILS ABSOLUTE COUNT 5.42 K/ L 1.80-8.00 (BEAKER) (test code = 670) LYMPHOCYTES ABSOLUTE COUNT 1.54 K/ L 1.48-4.50 (BEAKER) (test code = 414) MONOCYTES ABSOLUTE COUNT (BEAKER) 0.77 K/ L 0.00-1.30 (test code = 415) EOSINOPHILS ABSOLUTE COUNT 0.31 K/ L 0.00-0.50 (BEAKER) (test code = 416) BASOPHILS ABSOLUTE COUNT (BEAKER) 0.08 K/ L 0.00-0.20 (test code = 417) IMMATURE GRANULOCYTES-RELATIVE 1 % 0-0 H PERCENT (BEAKER) (test code = 2801) POCT-GLUCOSE [id number] 21:08:00 Test Item Value Reference Range Interpretation Comments POC-GLUCOSE METER 218 mg/dL 70-110 H TESTED AT [address] (BEAKER) (test code POINT [facility] [place] = 1538) [id number] POCT-GLUCOSE [id number] 16:36:00 Test Item Value Reference Range Interpretation Comments POC-GLUCOSE METER 142 mg/dL 70-110 H TESTED AT [address] (BEAKER) (test code POINT [facility] [place] = 1538) [id number] POCT-GLUCOSE [id number] 11:26:00 Test Item Value Reference Range Interpretation Comments POC-GLUCOSE METER 191 mg/dL 70-110 H TESTED AT [address] (BEAKER) (test code POINT [facility] [place] = 1538) [id number] VANCOMYCIN LEVEL, [id number] 09:08:00 Test Item Value Reference Range Interpretation Comments VANCOMYCIN TROUGH (BEAKER) (test 17.9 ug/mL 10.0-20.0 code = 522) VANCOMYCIN DOSING BY RX - follow upTROUGH PRIOR TO DOSE ON 01/20/18 AT 8:30am COMPREHENSIVE METABOLIC [id number] 06:57:00 Test Item Value Reference Range Interpretation Comments TOTAL PROTEIN 5.9 gm/dL 6.0-8.5 L (BEAKER) (test code = 770) ALBUMIN (BEAKER) 2.9 g/dL 3.5-5.0 L (test code = 1145) ALKALINE PHOSPHATASE 90 U/L 30-115 (BEAKER) (test code = 346) BILIRUBIN TOTAL 0.8 mg/dL 0.1-1.2 (BEAKER) (test code = 377) SODIUM (BEAKER) (test 139 meq/L 135-148 code = 381) POTASSIUM (BEAKER) 4.2 meq/L 3.6-5.5 (test code = 379) CHLORIDE (BEAKER) 105 meq/L 98-106 (test code = 382) CO2 (BEAKER) (test 28 meq/L 20-29 code = 355) BLOOD UREA NITROGEN 17 mg/dL 10-26 (BEAKER) (test code = 354) CREATININE (BEAKER) 1.35 mg/dL 0.50-1.20 H (test code = 358) GLUCOSE RANDOM 226 mg/dL 70-110 H (BEAKER) (test code = 652) CALCIUM (BEAKER) 8.5 mg/dL 8.5-10.5 (test code = 697) AST (SGOT) (BEAKER) 19 U/L 5-40 (test code = 353) ALT (SGPT) (BEAKER) 25 U/L 5-50 (test code = 347) EGFR (BEAKER) (test 57 mL/min/1.73 ESTIMA JOSÉ LUIS GFR IS code = 1092) sq m NOT ACCURATE CREATININE CLEARANCE IN PREDICTING GLOMERULAR FILTRATION RATE . ESTIMATED GFR I S NOT APPLICABLE FOR DIALYSIS PATIEN TS. POCT-GLUCOSE [id number] 06:33:00 Test Item Value Reference Range Interpretation Comments POC-GLUCOSE METER 226 mg/dL 70-110 H TESTED AT [address] (BEAKER) (test code POINT [facility] [place] = 1538) [id number] B-TYPE NATRIURETIC FACTOR (BNP)[id number] 06:00:00 Test Item Value Reference Range Interpretation Comments B-TYPE NATRIURETIC PEPTIDE (BEAKER) 371 pg/mL 0-100 H (test code = 700) CBC W/PLT COUNT & AUTO [id number] 05:40:00 Test Item Value Reference Range Interpretation Comments WHITE BLOOD CELL COUNT (BEAKER) 7.8 K/ L 4.0-10.0 (test code = 775) RED BLOOD CELL COUNT (BEAKER) 4.31 M/ L 4.20-5.80 (test code = 761) HEMOGLOBIN (BEAKER) (test code = 13.3 GM/DL 13.0-16.8 410) HEMATOCRIT (BEAKER) (test code = 40.7 % 36.0-50.0 411) MEAN CORPUSCULAR VOLUME (BEAKER) 94.4 fL 82.0-99.0 (test code = 753) MEAN CORPUSCULAR HEMOGLOBIN 30.9 pg 27.0-33.0 (BEAKER) (test code = 751) MEAN CORPUSCULAR HEMOGLOBIN CONC 32.7 GM/DL 32.0-36.0 (BEAKER) (test code = 752) RED CELL DISTRIBUTION WIDTH 13.7 % 12.0-15.0 (BEAKER) (test code = 412) PLATELET COUNT (BEAKER) (test 225 K/CU MM 150-430 code = 756) MEAN PLATELET VOLUME (BEAKER) 11.1 fL 6.0-11.5 (test code = 754) NUCLEATED RED BLOOD CELLS 0 /100 WBC 0-0 (BEAKER) (test code = 413) NEUTROPHILS RELATIVE PERCENT 64 % (BEAKER) (test code = 429) LYMPHOCYTES RELATIVE PERCENT 23 % (BEAKER) (test code = 430) MONOCYTES RELATIVE PERCENT 9 % (BEAKER) (test code = 431) EOSINOPHILS RELATIVE PERCENT 3 % (BEAKER) (test code = 432) BASOPHILS RELATIVE PERCENT 1 % (BEAKER) (test code = 437) NEUTROPHILS ABSOLUTE COUNT 4.98 K/ L 1.80-8.00 (BEAKER) (test code = 670) LYMPHOCYTES ABSOLUTE COUNT 1.75 K/ L 1.48-4.50 (BEAKER) (test code = 414) MONOCYTES ABSOLUTE COUNT (BEAKER) 0.71 K/ L 0.00-1.30 (test code = 415) EOSINOPHILS ABSOLUTE COUNT 0.22 K/ L 0.00-0.50 (BEAKER) (test code = 416) BASOPHILS ABSOLUTE COUNT (BEAKER) 0.07 K/ L 0.00-0.20 (test code = 417) IMMATURE GRANULOCYTES-RELATIVE 0 % 0-0 PERCENT (BEAKER) (test code = 2801) BASIC METABOLIC [id number] 23:25:00 Test Item Value Reference Range Interpretation Comments SODIUM (BEAKER) 140 meq/L 135-148 (test code = 381) POTASSIUM (BEAKER) 3.9 meq/L 3.6-5.5 (test code = 379) CHLORIDE (BEAKER) 106 meq/L 98-106 (test code = 382) CO2 (BEAKER) (test 25 meq/L 20-29 code = 355) BLOOD UREA NITROGEN 18 mg/dL 10-26 (BEAKER) (test code = 354) CREATININE (BEAKER) 1.25 mg/dL 0.50-1.20 H (test code = 358) GLUCOSE RANDOM 198 mg/dL 70-110 H (BEAKER) (test code = 652) CALCIUM (BEAKER) 8.7 mg/dL 8.5-10.5 (test code = 697) EGFR (BEAKER) (test 63 mL/min/1.73 ESTIMA JOSÉ LUIS GFR IS code = 1092) sq m NOT ACCURATE CREATININE CLEARANCE IN PREDICTING GLOMERULAR FILTRATION RATE . ESTIMATED GFR I S NOT APPLICABLE FOR DIALYSIS PATIEN TS. [id number] 23:19:00 Test Item Value Reference Range Interpretation Comments MAGNESIUM (BEAKER) (test code = 1.9 mg/dL 1.5-3.0 627) POCT-GLUCOSE [id number] 21:12:00 Test Item Value Reference Range Interpretation Comments POC-GLUCOSE METER 237 mg/dL 70-110 H TESTED AT [address] (BEAKER) (test code [address] [facility] [place] = 1538) [id number] POCT-GLUCOSE [id number] 17:00:00 Test Item Value Reference Range Interpretation Comments POC-GLUCOSE METER 156 mg/dL 70-110 H TESTED AT [address] (BEAKER) (test code [address] [facility] [place] = 1538) [address] POCT-GLUCOSE [id number] 12:51:00 Test Item Value Reference Range Interpretation Comments POC-GLUCOSE METER 135 mg/dL 70-110 H TESTED AT [address] ([facility]) (test code [address] [facility] [place] = 1538) [id number] POCT-GLUCOSE [id number] 08:16:00 Test Item Value Reference Range Interpretation Comments POC-GLUCOSE METER 212 mg/dL 70-110 H TESTED AT [address] ([facility]) (test code [address] [facility] [place] = 1538) [id number] VANCOMYCIN LEVEL, [id number] 21:00:00 Test Item Value Reference Range Interpretation Comments VANCOMYCIN TROUGH ([facility]) (test 14.3 ug/mL 10.0-20.0 code = 522) POCT-GLUCOSE [id number] 20:56:00 Test Item Value Reference Range Interpretation Comments POC-GLUCOSE METER 216 mg/dL 70-110 H TESTED AT [address] ([facility]) (test code [address] [facility] [place] = 1538) [id number] POCT-GLUCOSE [id number] 17:03:00 Test Item Value Reference Range Interpretation Comments POC-GLUCOSE METER 269 mg/dL 70-110 H TESTED AT [address] ([facility]) (test code [address] [facility] [place] = 1538) [id number] POCT-GLUCOSE [id number] 06:22:00 Test Item Value Reference Range Interpretation Comments POC-GLUCOSE METER 115 mg/dL 70-110 H TESTED AT [address] ([facility]) (test code [address] [facility] [place] = 1538) [id number] BASIC METABOLIC [id number] 04:43:00 Test Item Value Reference Range Interpretation Comments SODIUM (BEAKER) 141 meq/L 135-148 (test code = 381) POTASSIUM (BEAKER) 4.3 meq/L 3.6-5.5 (test code = 379) CHLORIDE (BEAKER) 108 meq/L 98-106 H (test code = 382) CO2 (BEAKER) (test 27 meq/L 20-29 code = 355) BLOOD UREA NITROGEN 22 mg/dL 10-26 (BEAKER) (test code = 354) CREATININE (BEAKER) 1.33 mg/dL 0.50-1.20 H (test code = 358) GLUCOSE RANDOM 107 mg/dL 70-110 (BEAKER) (test code = 652) CALCIUM (BEAKER) 8.6 mg/dL 8.5-10.5 (test code = 697) EGFR (BEAKER) (test 58 mL/min/1.73 ESTIMA JOSÉ LUIS GFR IS code = 1092) sq m NOT ACCURATE CREATININE CLEARANCE IN PREDICTING GLOMERULAR FILTRATION RATE . ESTIMATED GFR I S NOT APPLICABLE FOR DIALYSIS PATIEN TS. [id number] 04:37:00 Test Item Value Reference Range Interpretation Comments MAGNESIUM (BEAKER) (test code = 1.8 mg/dL 1.5-3.0 627) CBC W/PLT COUNT & AUTO [id number] 04:24:00 Test Item Value Reference Range Interpretation Comments WHITE BLOOD CELL COUNT (BEAKER) 7.8 K/ L 4.0-10.0 (test code = 775) RED BLOOD CELL COUNT (BEAKER) 4.17 M/ L 4.20-5.80 L (test code = 761) HEMOGLOBIN (BEAKER) (test code = 13.1 GM/DL 13.0-16.8 410) HEMATOCRIT (BEAKER) (test code = 39.4 % 36.0-50.0 411) MEAN CORPUSCULAR VOLUME (BEAKER) 94.5 fL 82.0-99.0 (test code = 753) MEAN CORPUSCULAR HEMOGLOBIN 31.4 pg 27.0-33.0 (BEAKER) (test code = 751) MEAN CORPUSCULAR HEMOGLOBIN CONC 33.2 GM/DL 32.0-36.0 (BEAKER) (test code = 752) RED CELL DISTRIBUTION WIDTH 13.8 % 12.0-15.0 (BEAKER) (test code = 412) PLATELET COUNT (BEAKER) (test 224 K/CU MM 150-430 code = 756) MEAN PLATELET VOLUME (BEAKER) 11.0 fL 6.0-11.5 (test code = 754) NUCLEATED RED BLOOD CELLS 0 /100 WBC 0-0 (BEAKER) (test code = 413) NEUTROPHILS RELATIVE PERCENT 64 % (BEAKER) (test code = 429) LYMPHOCYTES RELATIVE PERCENT 23 % (BEAKER) (test code = 430) MONOCYTES RELATIVE PERCENT 9 % (BEAKER) (test code = 431) EOSINOPHILS RELATIVE PERCENT 3 % (BEAKER) (test code = 432) BASOPHILS RELATIVE PERCENT 1 % (BEAKER) (test code = 437) NEUTROPHILS ABSOLUTE COUNT 4.99 K/ L 1.80-8.00 (BEAKER) (test code = 670) LYMPHOCYTES ABSOLUTE COUNT 1.75 K/ L 1.48-4.50 (BEAKER) (test code = 414) MONOCYTES ABSOLUTE COUNT (BEAKER) 0.71 K/ L 0.00-1.30 (test code = 415) EOSINOPHILS ABSOLUTE COUNT 0.23 K/ L 0.00-0.50 (BEAKER) (test code = 416) BASOPHILS ABSOLUTE COUNT (BEAKER) 0.06 K/ L 0.00-0.20 (test code = 417) IMMATURE GRANULOCYTES-RELATIVE 1 % 0-0 H PERCENT (BEAKER) (test code = 2801) POCT-GLUCOSE [id number] 20:55:00 Test Item Value Reference Range Interpretation Comments POC-GLUCOSE METER 145 mg/dL 70-110 H TESTED AT [address]) (test code POINT [facility] [place] = 1538) [address] VENOUS DOPPLER LEGS, [id number] 17:50:00Reason for exam:->r/o DVT FINAL REPORT Comparison: 12/08/2017 Discussion: Grayscale, color Doppler, spectral wave form analysis of the deep venous system of the bilateral lower extremities was performed.The common femoral, femoral, and popliteal veins are normally compressible and demonstrate normal spontaneous phasic wave forms.The visualized calf veins are patent. Impression: No evidence of deep venous thrombus in the bilateral lower extremities. Signed: Gab Bonilla MDReport Verified Date/Time: 01/17/2018 17:50:07 Reading Location[facility] Reading [facility] POCT-GLUCOSE [id number] 17:04:00 Test Item Value Reference Range Interpretation Comments POC-GLUCOSE METER 134 mg/dL 70-110 H TESTED AT [address] ([facility]) (test code [address] [facility] [place] = 1538) [id number] POCT-GLUCOSE [id number] 11:54:00 Test Item Value Reference Range Interpretation Comments POC-GLUCOSE METER 219 mg/dL 70-110 H TESTED AT [facility] (test code [address] [facility] [place] = 1538) [id number] POCT-GLUCOSE [id number] 09:10:00 Test Item Value Reference Range Interpretation Comments POC-GLUCOSE METER 48 mg/dL 70-110 L TESTED AT [facility] (BEAKER) (test code = [address] [facility] [place] 1538) [address] BASIC METABOLIC [id number] 06:27:00 Test Item Value Reference Range Interpretation Comments SODIUM (BEAKER) 140 meq/L 135-148 (test code = 381) POTASSIUM (BEAKER) 3.8 meq/L 3.6-5.5 (test code = 379) CHLORIDE (BEAKER) 107 meq/L 98-106 H (test code = 382) CO2 (BEAKER) (test 27 meq/L 20-29 code = 355) BLOOD UREA NITROGEN 22 mg/dL 10-26 (BEAKER) (test code = 354) CREATININE (BEAKER) 1.34 mg/dL 0.50-1.20 H (test code = 358) GLUCOSE RANDOM 116 mg/dL 70-110 H (BEAKER) (test code = 652) CALCIUM (BEAKER) 8.4 mg/dL 8.5-10.5 L (test code = 697) EGFR (BEAKER) (test 58 mL/min/1.73 ESTIMA JOSÉ LUIS GFR IS code = 1092) sq m NOT ACCURATE CREATININE CLEARANCE IN PREDICTING GLOMERULAR FILTRATION RATE . ESTIMATED GFR I S NOT APPLICABLE FOR DIALYSIS PATIEN TS. POCT-GLUCOSE [id number] 06:26:00 Test Item Value Reference Range Interpretation Comments POC-GLUCOSE METER 101 mg/dL 70-110 TESTED AT [address] ([facility] (test code [address] [facility] [place] = 1538) [id number] CBC W/PLT COUNT & AUTO [id number] 05:58:00 Test Item Value Reference Range Interpretation Comments WHITE BLOOD CELL COUNT (BEAKER) 8.0 K/ L 4.0-10.0 (test code = 775) RED BLOOD CELL COUNT (BEAKER) 4.28 M/ L 4.20-5.80 (test code = 761) HEMOGLOBIN (BEAKER) (test code = 13.1 GM/DL 13.0-16.8 410) HEMATOCRIT (BEAKER) (test code = 40.9 % 36.0-50.0 411) MEAN CORPUSCULAR VOLUME (BEAKER) 95.6 fL 82.0-99.0 (test code = 753) MEAN CORPUSCULAR HEMOGLOBIN 30.6 pg 27.0-33.0 (BEAKER) (test code = 751) MEAN CORPUSCULAR HEMOGLOBIN CONC 32.0 GM/DL 32.0-36.0 (BEAKER) (test code = 752) RED CELL DISTRIBUTION WIDTH 13.7 % 12.0-15.0 (BEAKER) (test code = 412) PLATELET COUNT (BEAKER) (test 212 K/CU MM 150-430 code = 756) MEAN PLATELET VOLUME (BEAKER) 10.8 fL 6.0-11.5 (test code = 754) NUCLEATED RED BLOOD CELLS 0 /100 WBC 0-0 (BEAKER) (test code = 413) NEUTROPHILS RELATIVE PERCENT 68 % (BEAKER) (test code = 429) LYMPHOCYTES RELATIVE PERCENT 18 % (BEAKER) (test code = 430) MONOCYTES RELATIVE PERCENT 10 % (BEAKER) (test code = 431) EOSINOPHILS RELATIVE PERCENT 3 % (BEAKER) (test code = 432) BASOPHILS RELATIVE PERCENT 1 % (BEAKER) (test code = 437) NEUTROPHILS ABSOLUTE COUNT 5.43 K/ L 1.80-8.00 (BEAKER) (test code = 670) LYMPHOCYTES ABSOLUTE COUNT 1.43 K/ L 1.48-4.50 L (BEAKER) (test code = 414) MONOCYTES ABSOLUTE COUNT (BEAKER) 0.83 K/ L 0.00-1.30 (test code = 415) EOSINOPHILS ABSOLUTE COUNT 0.24 K/ L 0.00-0.50 (BEAKER) (test code = 416) BASOPHILS ABSOLUTE COUNT (BEAKER) 0.05 K/ L 0.00-0.20 (test code = 417) IMMATURE GRANULOCYTES-RELATIVE 0 % 0-0 PERCENT (BEAKER) (test code = 2801) TROPONIN [id number] 00:11:00 Test Item Value Reference Range Interpretation Comments TROPONIN I (BEAKER) (test code = 397) < ng/mL 0.00-0.15 Troponin I (TnI) levels must be interpreted in the context of the presenting symptoms and the clinical findings. Elevated TnI levels indicate myocardial damage, but are not specific for ischemic heart disease. Elevated TnI levels are seen in patients with other cardiac conditions (including myocarditis and congestive heart failure), and slight TnI elevations occur in patients with other conditions, including sepsis, renal failure, acidosis, acute neurological disease, and persistent tachyarrhythmia.B-TYPE NATRIURETIC FACTOR (BNP) 2018-01-17 00:10:00 Test Item Value Reference Range Interpretation Comments B-TYPE NATRIURETIC PEPTIDE (BEAKER) 291 pg/mL 0-100 H (test code = 700) RAD, CHEST, 1 VIEW, NON [id number] 00:09:00Reason for exam:->SHORTNESS OF BREATHReason for exam:->EDEMAReason for exam:->WEIGHT GAINShould this be performed at the bedside?->YesFINAL REPORT INDICATION: SHORTNESS OF BREATHEDEMAWEIGHT GAIN COMPARISON: December 07, 2017 TECHNIQUE: Single frontal view of the chest. FINDINGS: Lungs and pleura: Clear lungs. No effusion.Heart and mediastinum: Stable prominent cardiac size. Unremarkable mediastinal contours.Osseous structures: No acute abnormality.Other: None. IMPRESSION: No acute intrathoracic abnormality.Signed: JR Lockhart Robert MDReport Verified Date/Time: 01/17/2018 00:09:15 Reading Location:[address] Body Reading Room BASIC METABOLIC [id number] 00:02:00 Test Item Value Reference Range Interpretation Comments SODIUM (BEAKER) 137 meq/L 135-148 (test code = 381) POTASSIUM (BEAKER) 4.5 meq/L 3.6-5.5 (test code = 379) CHLORIDE (BEAKER) 105 meq/L 98-106 (test code = 382) CO2 (BEAKER) (test 24 meq/L 20-29 code = 355) BLOOD UREA NITROGEN 23 mg/dL 10-26 (BEAKER) (test code = 354) CREATININE (BEAKER) 1.45 mg/dL 0.50-1.20 H (test code = 358) GLUCOSE RANDOM 199 mg/dL 70-110 H (BEAKER) (test code = 652) CALCIUM (BEAKER) 8.8 mg/dL 8.5-10.5 (test code = 697) EGFR (BEAKER) (test 53 mL/min/1.73 ESTIMA JOSÉ LUIS GFR IS code = 1092) sq m NOT ACCURATE CREATININE CLEARANCE IN PREDICTING GLOMERULAR FILTRATION RATE . ESTIMATED GFR I S NOT APPLICABLE FOR DIALYSIS PATIEN TS. CBC W/PLT COUNT & AUTO [id number] 23:35:00 Test Item Value Reference Range Interpretation Comments WHITE BLOOD CELL COUNT (BEAKER) 10.5 K/ L 4.0-10.0 H (test code = 775) RED BLOOD CELL COUNT (BEAKER) 4.77 M/ L 4.20-5.80 (test code = 761) HEMOGLOBIN (BEAKER) (test code = 14.4 GM/DL 13.0-16.8 410) HEMATOCRIT (BEAKER) (test code = 45.4 % 36.0-50.0 411) MEAN CORPUSCULAR VOLUME (BEAKER) 95.2 fL 82.0-99.0 (test code = 753) MEAN CORPUSCULAR HEMOGLOBIN 30.2 pg 27.0-33.0 (BEAKER) (test code = 751) MEAN CORPUSCULAR HEMOGLOBIN CONC 31.7 GM/DL 32.0-36.0 L (BEAKER) (test code = 752) RED CELL DISTRIBUTION WIDTH 13.5 % 12.0-15.0 (BEAKER) (test code = 412) PLATELET COUNT (BEAKER) (test 266 K/CU MM 150-430 code = 756) MEAN PLATELET VOLUME (BEAKER) 10.7 fL 6.0-11.5 (test code = 754) NUCLEATED RED BLOOD CELLS 0 /100 WBC 0-0 (BEAKER) (test code = 413) NEUTROPHILS RELATIVE PERCENT 75 % (BEAKER) (test code = 429) LYMPHOCYTES RELATIVE PERCENT 15 % (BEAKER) (test code = 430) MONOCYTES RELATIVE PERCENT 7 % (BEAKER) (test code = 431) EOSINOPHILS RELATIVE PERCENT 2 % (BEAKER) (test code = 432) BASOPHILS RELATIVE PERCENT 1 % (BEAKER) (test code = 437) NEUTROPHILS ABSOLUTE COUNT 7.82 K/ L 1.80-8.00 (BEAKER) (test code = 670) LYMPHOCYTES ABSOLUTE COUNT 1.53 K/ L 1.48-4.50 (BEAKER) (test code = 414) MONOCYTES ABSOLUTE COUNT (BEAKER) 0.77 K/ L 0.00-1.30 (test code = 415) EOSINOPHILS ABSOLUTE COUNT 0.24 K/ L 0.00-0.50 (BEAKER) (test code = 416) BASOPHILS ABSOLUTE COUNT (BEAKER) 0.08 K/ L 0.00-0.20 (test code = 417) IMMATURE GRANULOCYTES-RELATIVE 1 % 0-0 H PERCENT (BEAKER) (test code = 2801) BLOOD [id number] 10:00:00 Test Item Value Reference Range Interpretation Comments CULTURE (BEAKER) (test No growth in 5 days code = 1095) BLOOD [id number] 10:00:00 Test Item Value Reference Range Interpretation Comments CULTURE (BEAKER) (test No growth in 5 days code = 1095) WOUND CULTURE + GRAM [id number] 10:10:00 Test Item Value Reference Interpretation Comments Range CULTURE (BEAKER) STAPHYLOCOCCUS A 4+ Staphy lococcus (test code = 1095) AUREUS aureus Ciprofloxacin (test S code = 7) Clindamycin (test R code = 10) Daptomycin (test code S = 59) Erythromycin (test S code = 4) Gentamicin (test code S = 18) Levofloxacin (test S code = 22) Linezolid (test code S = 40) Moxifloxacin (test S code = 36) Nitrofurantoin (test S code = 23) Oxacillin (test code S = 14) Rifampin (test code = S 43) Tetracycline (test I code = 2) Tigecycline (test S code = 133) Trimethoprim + S Sulfamethoxazole (test code = 47) Vancomycin (test code S = 13) CULTURE (BEAKER) A 4+ Beta-hem olytic (test code = 1095) streptoco ccus group B, by serological grouping GRAM STAIN RESULT No WBCs (BEAKER) (test code = 1123) GRAM STAIN RESULT 4+ gram positive (BEAKER) (test code = cocci in pairs and 906342) clusters POCT-GLUCOSE [id number] 17:33:00 Test Item Value Reference Range Interpretation Comments POC-GLUCOSE METER 105 mg/dL 70-110 TESTED AT [facility] [address] (BEAKER) (test code [address] [facility] [place] = 1538) [address] URINALYSIS W/ REFLEX URINE [id number] 09:56:00 Test Item Value Reference Range Interpretation Comments COLOR (BEAKER) (test code = 470) Yellow CLARITY (BEAKER) (test code = 469) Clear SPECIFIC GRAVITY UA (BEAKER) (test 1.020 1.001-1.035 code = 468) PH UA (BEAKER) (test code = 467) 6.0 5.0-8.0 PROTEIN UA (BEAKER) (test code = 100 mg/dL Negative A 464) GLUCOSE UA (BEAKER) (test code = Negative Negative 365) KETONES UA (BEAKER) (test code = Negative Negative 371) BILIRUBIN UA (BEAKER) (test code = Negative Negative 462) BLOOD UA (BEAKER) (test code = 461) Small Negative A NITRITE UA (BEAKER) (test code = Negative Negative 465) LEUKOCYTE ESTERASE UA (BEAKER) Negative Negative (test code = 466) UROBILINOGEN UA (BEAKER) (test code 0.2 mg/dL 0.2-1.0 = 463) BACTERIA (BEAKER) (test code = 517) Rare RBC UA-MANUAL (BEAKER) (test code = 5-10 /HPF 1659) WBC UA-MANUAL (BEAKER) (test code = <5 /HPF 1661) SQUAMOUS EPITHELIAL MANUAL (BEAKER) <5 /HPF (test code = 1663) SOURCE(BEAKER) (test code = 2795) POCT-GLUCOSE [id number] 08:36:00 Test Item Value Reference Range Interpretation Comments POC-GLUCOSE METER 162 mg/dL 70-110 H TESTED AT [facility] [address] [facility] (test code POINT [facility] [place] = 1537) [address] TSH/FREE T4 IF [id number] 07:04:00 Test Item Value Reference Range Interpretation Comments THYROID STIMULATING HORMONE 4.64 uIU/mL 0.35-5.50 (BEAKER) (test code = 772) LIPID [id number] 06:50:00 Test Item Value Reference Range Interpretation Comments TRIGLYCERIDES (BEAKER) (test code = 64 mg/dL 540) CHOLESTEROL (BEAKER) (test code = 203 mg/dL 631) HDL CHOLESTEROL (BEAKER) (test code 27 mg/dL = 976) LDL CHOLESTEROL CALCULATED (BEAKER) 163 mg/dL (test code = 633) Triglyceride Reference Range: Low Risk <150 Borderline 150-199 High Risk 200-499 Very High Risk >=500Cholesterol Reference Range: Low Risk <200 Borderline 200-239 High Risk >240HDL Cholesterol Reference Range: Low Risk >=60 High Risk <40LDL Cholesterol Reference Range: Optimal <100 Near Optimal 100-129 Borderline 130-159 High 160-189 Very High >=190BASIC METABOLIC [id number] 06:48:00 Test Item Value Reference Range Interpretation Comments SODIUM (BEAKER) 138 meq/L 135-148 (test code = 381) POTASSIUM (BEAKER) 3.6 meq/L 3.6-5.5 (test code = 379) CHLORIDE (BEAKER) 98 meq/L 98-106 (test code = 382) CO2 (BEAKER) (test 32 meq/L 20-29 H code = 355) BLOOD UREA NITROGEN 27 mg/dL 10-26 H (BEAKER) (test code = 354) CREATININE (BEAKER) 1.44 mg/dL 0.50-1.20 H (test code = 358) GLUCOSE RANDOM 167 mg/dL 70-110 H (BEAKER) (test code = 652) CALCIUM (BEAKER) 8.5 mg/dL 8.5-10.5 (test code = 697) EGFR (BEAKER) (test 53 mL/min/1.73 ESTIMA JOSÉ LUIS GFR IS code = 1092) sq m NOT ACCURATE CREATININE CLEARANCE IN PREDICTING GLOMERULAR FILTRATION RATE . ESTIMATED GFR I S NOT APPLICABLE FOR DIALYSIS PATIEN TS. CBC W/PLT COUNT & AUTO [id number] 06:33:00 Test Item Value Reference Range Interpretation Comments WHITE BLOOD CELL COUNT (BEAKER) 10.1 K/ L 4.0-10.0 H (test code = 775) RED BLOOD CELL COUNT (BEAKER) 5.12 M/ L 4.20-5.80 (test code = 761) HEMOGLOBIN (BEAKER) (test code = 15.3 GM/DL 13.0-16.8 410) HEMATOCRIT (BEAKER) (test code = 48.4 % 36.0-50.0 411) MEAN CORPUSCULAR VOLUME (BEAKER) 94.5 fL 82.0-99.0 (test code = 753) MEAN CORPUSCULAR HEMOGLOBIN 29.9 pg 27.0-33.0 (BEAKER) (test code = 751) MEAN CORPUSCULAR HEMOGLOBIN CONC 31.6 GM/DL 32.0-36.0 L (BEAKER) (test code = 752) RED CELL DISTRIBUTION WIDTH 13.4 % 12.0-15.0 (BEAKER) (test code = 412) PLATELET COUNT (BEAKER) (test 232 K/CU MM 150-430 code = 756) MEAN PLATELET VOLUME (BEAKER) 10.8 fL 6.0-11.5 (test code = 754) NUCLEATED RED BLOOD CELLS 0 /100 WBC 0-0 (BEAKER) (test code = 413) NEUTROPHILS RELATIVE PERCENT 64 % (BEAKER) (test code = 429) LYMPHOCYTES RELATIVE PERCENT 24 % (BEAKER) (test code = 430) MONOCYTES RELATIVE PERCENT 7 % (BEAKER) (test code = 431) EOSINOPHILS RELATIVE PERCENT 3 % (BEAKER) (test code = 432) BASOPHILS RELATIVE PERCENT 1 % (BEAKER) (test code = 437) NEUTROPHILS ABSOLUTE COUNT 6.45 K/ L 1.80-8.00 (BEAKER) (test code = 670) LYMPHOCYTES ABSOLUTE COUNT 2.39 K/ L 1.48-4.50 (BEAKER) (test code = 414) MONOCYTES ABSOLUTE COUNT (BEAKER) 0.72 K/ L 0.00-1.30 (test code = 415) EOSINOPHILS ABSOLUTE COUNT 0.28 K/ L 0.00-0.50 (BEAKER) (test code = 416) BASOPHILS ABSOLUTE COUNT (BEAKER) 0.11 K/ L 0.00-0.20 (test code = 417) IMMATURE GRANULOCYTES-RELATIVE 1 % 0-0 H PERCENT (BEAKER) (test code = 2801) HEMOGLOBIN [id number] 06:32:00 Test Item Value Reference Range Interpretation Comments HEMOGLOBIN A1C (BEAKER) (test code = 10.4 % 4.3-6.1 H 368) VENOUS DOPPLER LEGS, [id number] 05:53:00Reason for exam:->edema rule out DVT/ CellulitisFINAL REPORT VENOUS DOPPLER LEGS, BILATERAL INDICATION: edema rule out DVT/ Cellulitis COMPARISON: None TECHNIQUE: Real time lema-scale, color, and spectral Doppler imaging of the bilateral lower extremity venous system. FINDINGS: Thigh: Normal compressibility and color Doppler flow within the common femoral, superficial femoral, and popliteal veins bilaterally. Calf: Normal compressibility is demonstrated within the peroneal and posterior tibial veins bilaterally. Additional findings: None. IMPRESSION: No Doppler or grayscale evidence for deep venous thrombosis bilaterally. Signed: JR Lockhart Robert MDReport Verified Date/Time: 12/08/2017 05:53:51 Reading Location: [facility] C013Y CT Body Reading Room TROPONIN [id number] 00:46:00 Test Item Value Reference Range Interpretation Comments TROPONIN I ([facility]) (test code = 0.03 ng/mL 0.00-0.15 397) Troponin I (TnI) levels must be interpreted in the context of the presenting symptoms and the clinical findings. Elevated TnI levels indicate myocardial damage, but are not specific for ischemic heart disease. Elevated TnI levels are seen in patients with other cardiac conditions (including myocarditis and congestive heart failure), and slight TnI elevations occur in patients with other conditions, including sepsis, renal failure, acidosis, acute neurological disease, and persistent tachyarrhythmia.POCT-GLUCOSE [id number] 21:14:00 Test Item Value Reference Range Interpretation Comments POC-GLUCOSE METER 221 mg/dL 70-110 H TESTED AT [address] ([facility]) (test code [facility] [place] = 1538) [id number] POCT-GLUCOSE [id number] 16:43:00 Test Item Value Reference Range Interpretation Comments POC-GLUCOSE METER 371 mg/dL 70-110 H TESTED AT [address] ([facility] (test code [facility] [place] = 1538) [id number] CREATINE KINASE (CK), TOTAL AND [id number] 14:26:00 Test Item Value Reference Range Interpretation Comments CREATINE KINASE TOTAL ([facility]) 366 U/L 40-250 H (test code = 380) CREATINE KINASE-MB ([facility]) (test 8.1 ng/mL 0.0-4.9 H code = 750) CREATINE KINASE-MB INDEX (BEAKER) 2.2 % (test code = 395) CK-MB Reference Range:<5 Normal5-10 Borderline>10 AbnormalTROPONIN I 2017-12-07 14:08:00 Test Item Value Reference Range Interpretation Comments TROPONIN I (BEAKER) (test code = 0.03 ng/mL 0.00-0.15 397) Troponin I (TnI) levels must be interpreted in the context of the presenting symptoms and the clinical findings. Elevated TnI levels indicate myocardial damage, but are not specific for ischemic heart disease. Elevated TnI levels are seen in patients with other cardiac conditions (including myocarditis and congestive heart failure), and slight TnI elevations occur in patients with other conditions, including sepsis, renal failure, acidosis, acute neurological disease, and persistent tachyarrhythmia.BASIC METABOLIC [id number] 14:00:00 Test Item Value Reference Range Interpretation Comments SODIUM (BEAKER) 134 meq/L 135-148 L (test code = 381) POTASSIUM (BEAKER) 4.6 meq/L 3.6-5.5 Specimen slightly (test code = 379) hemolyzed CHLORIDE (BEAKER) 96 meq/L 98-106 L (test code = 382) CO2 (BEAKER) (test 28 meq/L 20-29 code = 355) BLOOD UREA NITROGEN 24 mg/dL 10-26 (BEAKER) (test code = 354) CREATININE (BEAKER) 1.72 mg/dL 0.50-1.20 H Specimen slightly (test code = 358) hemolyzed GLUCOSE RANDOM 387 mg/dL 70-110 H (BEAKER) (test code = 652) CALCIUM (BEAKER) 9.4 mg/dL 8.5-10.5 (test code = 697) EGFR (BEAKER) (test 43 mL/min/1.73 ESTIMA JOSÉ LUIS GFR IS code = 1092) sq m NOT ACCURATE CREATININE CLEARANCE IN PREDICTING GLOMERULAR FILTRATION RATE . ESTIMATED GFR I S NOT APPLICABLE FOR DIALYSIS PATIEN TS. [id number] 13:54:00 Test Item Value Reference Range Interpretation Comments MAGNESIUM (BEAKER) 2.1 mg/dL 1.5-3.0 Specimen slightly (test code = 627) hemolyzed B-TYPE NATRIURETIC FACTOR (BNP)2017-12-07 13:48:00 Test Item Value Reference Range Interpretation Comments B-TYPE NATRIURETIC PEPTIDE (BEAKER) 520 pg/mL 0-100 H (test code = 700) [id number] 13:19:00 Test Item Value Reference Range Interpretation Comments PROTIME (BEAKER) (test code = 759) 11.8 sec 9.3-12.0 INR (BEAKER) (test code = 370) 1.1 <=5.9 PARTIAL THROMBOPLASTIN TIME (BEAKER) 26.8 sec 23.0-35.0 (test code = 760) RECOMMENDED COUMADIN/WARFARIN INR THERAPY RANGESSTANDARD DOSE: 2.0 - 3.0 Includes: PROPHYLAXIS forvenous thrombosis, systemic embolization; TREATMENT for venous thrombosis and/or pulmonary embolus.HIGH RISK: Target INR is 2.5-3.5 for patients with mechanical heart valves.Final Information (Auto Output)Final Information (Auto Output)Final Information (Auto Output)CBC W/PLT COUNT & AUTO [id number] 13:07:00 Test Item Value Reference Range Interpretation Comments WHITE BLOOD CELL COUNT (BEAKER) 12.0 K/ L 4.0-10.0 H (test code = 775) RED BLOOD CELL COUNT (BEAKER) 5.43 M/ L 4.20-5.80 (test code = 761) HEMOGLOBIN (BEAKER) (test code = 16.3 GM/DL 13.0-16.8 410) HEMATOCRIT (BEAKER) (test code = 51.1 % 36.0-50.0 H 411) MEAN CORPUSCULAR VOLUME (BEAKER) 94.1 fL 82.0-99.0 (test code = 753) MEAN CORPUSCULAR HEMOGLOBIN 30.0 pg 27.0-33.0 (BEAKER) (test code = 751) MEAN CORPUSCULAR HEMOGLOBIN CONC 31.9 GM/DL 32.0-36.0 L (BEAKER) (test code = 752) RED CELL DISTRIBUTION WIDTH 13.7 % 12.0-15.0 (BEAKER) (test code = 412) PLATELET COUNT (BEAKER) (test 267 K/CU MM 150-430 code = 756) MEAN PLATELET VOLUME (BEAKER) 11.3 fL 6.0-11.5 (test code = 754) NUCLEATED RED BLOOD CELLS 0 /100 WBC 0-0 (BEAKER) (test code = 413) NEUTROPHILS RELATIVE PERCENT 72 % (BEAKER) (test code = 429) LYMPHOCYTES RELATIVE PERCENT 16 % (BEAKER) (test code = 430) MONOCYTES RELATIVE PERCENT 7 % (BEAKER) (test code = 431) EOSINOPHILS RELATIVE PERCENT 2 % (BEAKER) (test code = 432) BASOPHILS RELATIVE PERCENT 1 % (BEAKER) (test code = 437) NEUTROPHILS ABSOLUTE COUNT 8.67 K/ L 1.80-8.00 H (BEAKER) (test code = 670) LYMPHOCYTES ABSOLUTE COUNT 1.90 K/ L 1.48-4.50 (BEAKER) (test code = 414) MONOCYTES ABSOLUTE COUNT (BEAKER) 0.86 K/ L 0.00-1.30 (test code = 415) EOSINOPHILS ABSOLUTE COUNT 0.24 K/ L 0.00-0.50 (BEAKER) (test code = 416) BASOPHILS ABSOLUTE COUNT (BEAKER) 0.13 K/ L 0.00-0.20 (test code = 417) IMMATURE GRANULOCYTES-RELATIVE 1 % 0-0 H PERCENT (BEAKER) (test code = 2801) RAD, CHEST, 1 VIEW, NON [id number] 12:44:00Reason for exam:->CHEST PAIN FINAL REPORT Chest x-ray Clinical History: CHEST PAIN Comparison: November 27, 2017 Views: One AP lordotic Chest x-ray:The cardiac and mediastinal silhouettes are enlarged with aleft ventricular configuration. There is no evidence of a pneumothorax. There is no evidence of a significant pleural effusion. There is no evidence of overt cardiac failure. The visible regional skeleton is intact. There is no evidence of a focal parenchymal opacity. There is a left subclavian pacemaker with two leads. Impression: Cardiomegaly with decreased pulmonary vascular congestion as compared to the prior study. Blunting of the left lateral costophrenic sulcus is presumed secondary to chronic pleural change. Differential would include a tiny left pleural effusion. Signed: Suki Woody MDReport Verified Date/Time: 12/07/2017 12:44:27 Reading Location: [address] Radiology Reading Room CREATINE KINASE (CK), TOTAL AND [id number] 02:36:00 Test Item Value Reference Range Interpretation Comments CREATINE KINASE TOTAL (BEAKER) 432 U/L 40-250 H (test code = 380) CREATINE KINASE-MB (BEAKER) (test 5.6 ng/mL 0.0-4.9 H code = 750) CREATINE KINASE-MB INDEX (BEAKER) 1.3 % (test code = 395) CK-MB Reference Range:<5 Normal5-10 Borderline>10 AbnormalTROPONIN I 2017-11-27 02:35:00 Test Item Value Reference Range Interpretation Comments TROPONIN I (BEAKER) (test code = 0.04 ng/mL 0.00-0.15 397) Troponin I (TnI) levels must be interpreted in the context of the presenting symptoms and the clinical findings. Elevated TnI levels indicate myocardial damage, but are not specific for ischemic heart disease. Elevated TnI levels are seen in patients with other cardiac conditions (including myocarditis and congestive heart failure), and slight TnI elevations occur in patients with other conditions, including sepsis, renal failure, acidosis, acute neurological disease, and persistent tachyarrhythmia.COMPREHENSIVE METABOLIC [id number] 02:28:00 Test Item Value Reference Range Interpretation Comments TOTAL PROTEIN 6.7 gm/dL 6.0-8.5 (BEAKER) (test code = 770) ALBUMIN (BEAKER) 3.2 g/dL 3.5-5.0 L (test code = 1145) ALKALINE PHOSPHATASE 76 U/L 30-115 (BEAKER) (test code = 346) BILIRUBIN TOTAL 0.7 mg/dL 0.1-1.2 (BEAKER) (test code = 377) SODIUM (BEAKER) (test 137 meq/L 135-148 code = 381) POTASSIUM (BEAKER) 4.7 meq/L 3.6-5.5 (test code = 379) CHLORIDE (BEAKER) 102 meq/L 98-106 (test code = 382) CO2 (BEAKER) (test 27 meq/L 20-29 code = 355) BLOOD UREA NITROGEN 27 mg/dL 10-26 H (BEAKER) (test code = 354) CREATININE (BEAKER) 1.54 mg/dL 0.50-1.20 H (test code = 358) GLUCOSE RANDOM 361 mg/dL 70-110 H (BEAKER) (test code = 652) CALCIUM (BEAKER) 9.0 mg/dL 8.5-10.5 (test code = 697) AST (SGOT) (BEAKER) 30 U/L 5-40 (test code = 353) ALT (SGPT) (BEAKER) 43 U/L 5-50 (test code = 347) EGFR (BEAKER) (test 50 mL/min/1.73 ESTIMA JOSÉ LUIS GFR IS code = 1092) sq m NOT ACCURATE CREATININE CLEARANCE IN PREDICTING GLOMERULAR FILTRATION RATE . ESTIMATED GFR I S NOT APPLICABLE FOR DIALYSIS PATIEN TS. CBC W/PLT COUNT & AUTO [id number] 02:14:00 Test Item Value Reference Range Interpretation Comments WHITE BLOOD CELL COUNT (BEAKER) 11.4 K/ L 4.0-10.0 H (test code = 775) RED BLOOD CELL COUNT (BEAKER) 5.40 M/ L 4.20-5.80 (test code = 761) HEMOGLOBIN (BEAKER) (test code = 16.2 GM/DL 13.0-16.8 410) HEMATOCRIT (BEAKER) (test code = 50.7 % 36.0-50.0 H 411) MEAN CORPUSCULAR VOLUME (BEAKER) 93.9 fL 82.0-99.0 (test code = 753) MEAN CORPUSCULAR HEMOGLOBIN 30.0 pg 27.0-33.0 (BEAKER) (test code = 751) MEAN CORPUSCULAR HEMOGLOBIN CONC 32.0 GM/DL 32.0-36.0 (BEAKER) (test code = 752) RED CELL DISTRIBUTION WIDTH 13.3 % 12.0-15.0 (BEAKER) (test code = 412) PLATELET COUNT (BEAKER) (test 228 K/CU MM 150-430 code = 756) MEAN PLATELET VOLUME (BEAKER) 11.5 fL 6.0-11.5 (test code = 754) NUCLEATED RED BLOOD CELLS 0 /100 WBC 0-0 (BEAKER) (test code = 413) NEUTROPHILS RELATIVE PERCENT 67 % (BEAKER) (test code = 429) LYMPHOCYTES RELATIVE PERCENT 20 % (BEAKER) (test code = 430) MONOCYTES RELATIVE PERCENT 9 % (BEAKER) (test code = 431) EOSINOPHILS RELATIVE PERCENT 2 % (BEAKER) (test code = 432) BASOPHILS RELATIVE PERCENT 1 % (BEAKER) (test code = 437) NEUTROPHILS ABSOLUTE COUNT 7.69 K/ L 1.80-8.00 (BEAKER) (test code = 670) LYMPHOCYTES ABSOLUTE COUNT 2.26 K/ L 1.48-4.50 (BEAKER) (test code = 414) MONOCYTES ABSOLUTE COUNT (BEAKER) 1.02 K/ L 0.00-1.30 (test code = 415) EOSINOPHILS ABSOLUTE COUNT 0.27 K/ L 0.00-0.50 (BEAKER) (test code = 416) BASOPHILS ABSOLUTE COUNT (BEAKER) 0.08 K/ L 0.00-0.20 (test code = 417) IMMATURE GRANULOCYTES-RELATIVE 1 % 0-0 H PERCENT (BEAKER) (test code = 2801) KETONE, [id number] 01:55:00 Test Item Value Reference Range Interpretation Comments KETONES, BLOOD (BEAKER) (test code 0.2 mmol/L <0.4 = 1103) RAD, CHEST, 1 VIEW, NON [id number] 01:46:00Reason for exam:->pacemaker placement,pt feels it was dislodgedShould this be performed at the bed side?->YesFINAL REPORT History: Pacemaker placement. Comparison: 09/08/2017 Findings: Asingle view of the chest is submitted. A left subclavian, dual-lead pacemaker is stable in position and appearance. The cardiac silhouette is stable in its enlargement. There is central pulmonary vascular congestion. Bilateral perihilar interstitial opacity suggests pulmonary interstitial edema. There is no focal consolidation, large pleural effusion, pneumothorax or acute bony abnormality. Signed: Shraddha Stanley MDReport Verified Date/Time: 11/27/2017 01:46:38 Reading Location: [address] Reading Room POCT-GLUCOSE [id number] 13:29:00 Test Item Value Reference Range Interpretation Comments POC-GLUCOSE METER 214 mg/dL 70-110 H TESTED AT [address] ([facility]) (test code [facility] [place] = 1538) [id number] BASIC METABOLIC [id number] 06:48:00 Test Item Value Reference Range Interpretation Comments SODIUM (BEAKER) 138 meq/L 135-148 (test code = 381) POTASSIUM (BEAKER) 4.5 meq/L 3.6-5.5 (test code = 379) CHLORIDE (BEAKER) 105 meq/L 98-106 (test code = 382) CO2 (BEAKER) (test 26 meq/L 20-29 code = 355) BLOOD UREA NITROGEN 15 mg/dL 10-26 (BEAKER) (test code = 354) CREATININE (BEAKER) 1.48 mg/dL 0.50-1.20 H (test code = 358) GLUCOSE RANDOM 173 mg/dL 70-110 H (BEAKER) (test code = 652) CALCIUM (BEAKER) 9.0 mg/dL 8.5-10.5 (test code = 697) EGFR (BEAKER) (test 52 mL/min/1.73 ESTIMA JOSÉ LUIS GFR IS code = 1092) sq m NOT ACCURATE CREATININE CLEARANCE IN PREDICTING GLOMERULAR FILTRATION RATE . ESTIMATED GFR I S NOT APPLICABLE FOR DIALYSIS PATIEN TS. CBC W/PLT COUNT & AUTO [id number] 06:23:00 Test Item Value Reference Range Interpretation Comments WHITE BLOOD CELL COUNT (BEAKER) 8.5 K/ L 4.0-10.0 (test code = 775) RED BLOOD CELL COUNT (BEAKER) 4.54 M/ L 4.20-5.80 (test code = 761) HEMOGLOBIN (BEAKER) (test code = 13.6 GM/DL 13.0-16.8 410) HEMATOCRIT (BEAKER) (test code = 41.4 % 40.0-50.0 411) MEAN CORPUSCULAR VOLUME (BEAKER) 91.0 fL 82.0-98.0 (test code = 753) MEAN CORPUSCULAR HEMOGLOBIN 29.9 pg 27.0-33.0 (BEAKER) (test code = 751) MEAN CORPUSCULAR HEMOGLOBIN CONC 32.8 GM/DL 32.0-36.0 (BEAKER) (test code = 752) RED CELL DISTRIBUTION WIDTH 15.8 % 10.3-14.2 H (BEAKER) (test code = 412) PLATELET COUNT (BEAKER) (test 254 K/CU MM 150-430 code = 756) MEAN PLATELET VOLUME (BEAKER) 9.2 fL 6.5-10.5 (test code = 754) NUCLEATED RED BLOOD CELLS 0 /100 WBC 0-0 (BEAKER) (test code = 413) NEUTROPHILS RELATIVE PERCENT 66 % (BEAKER) (test code = 429) LYMPHOCYTES RELATIVE PERCENT 21 % (BEAKER) (test code = 430) MONOCYTES RELATIVE PERCENT 9 % (BEAKER) (test code = 431) EOSINOPHILS RELATIVE PERCENT 4 % (BEAKER) (test code = 432) BASOPHILS RELATIVE PERCENT 1 % (BEAKER) (test code = 437) NEUTROPHILS ABSOLUTE COUNT 5.60 K/ L 1.80-8.00 (BEAKER) (test code = 670) LYMPHOCYTES ABSOLUTE COUNT 1.80 K/ L 1.48-4.50 (BEAKER) (test code = 414) MONOCYTES ABSOLUTE COUNT (BEAKER) 0.70 K/ L 0.00-1.30 (test code = 415) EOSINOPHILS ABSOLUTE COUNT 0.30 K/ L 0.00-0.50 (BEAKER) (test code = 416) BASOPHILS ABSOLUTE COUNT (BEAKER) 0.10 K/ L 0.00-0.20 (test code = 417) POCT-GLUCOSE [id number] 06:20:00 Test Item Value Reference Range Interpretation Comments POC-GLUCOSE METER 184 mg/dL 70-110 H TESTED AT [address] ([facility]) (test code [facility] = 1538) [id number] POCT-GLUCOSE [id number] 20:47:00 Test Item Value Reference Range Interpretation Comments POC-GLUCOSE METER 323 mg/dL 70-110 H Notified R Live SCHULER/TESTED AT ([facility]) (test code [address] POINT = 1538) [facility] [id number] POCT-GLUCOSE [id number] 16:55:00 Test Item Value Reference Range Interpretation Comments POC-GLUCOSE METER 320 mg/dL 70-110 H TESTED AT [address] ([facility]) (test code [facility] = 1538) [id number] B-TYPE NATRIURETIC FACTOR (BNP)2017-09-08 11:28:00 Test Item Value Reference Range Interpretation Comments B-TYPE NATRIURETIC PEPTIDE ([facility]) 800 pg/mL 0-100 H (test code = 700) TROPONIN [id number] 11:25:00 Test Item Value Reference Range Interpretation Comments TROPONIN I (BEAKER) (test code = 397) < ng/mL 0.00-0.15 Troponin I (TnI) levels must be interpreted in the context of the presenting symptoms and the clinical findings. Elevated TnI levels indicate myocardial damage, but are not specific for ischemic heart disease. Elevated TnI levels are seen in patients with other cardiac conditions (including myocarditis and congestive heart failure), and slight TnI elevations occur in patients with other conditions, including sepsis, renal failure, acidosis, acute neurological disease, and persistent tachyarrhythmia.BASIC METABOLIC [id number] 11:17:00 Test Item Value Reference Range Interpretation Comments SODIUM (BEAKER) 138 meq/L 135-148 (test code = 381) POTASSIUM (BEAKER) 4.4 meq/L 3.6-5.5 (test code = 379) CHLORIDE (BEAKER) 105 meq/L 98-106 (test code = 382) CO2 (BEAKER) (test 26 meq/L 20-29 code = 355) BLOOD UREA NITROGEN 12 mg/dL 10-26 (BEAKER) (test code = 354) CREATININE (BEAKER) 1.30 mg/dL 0.50-1.20 H (test code = 358) GLUCOSE RANDOM 262 mg/dL 70-110 H (BEAKER) (test code = 652) CALCIUM (BEAKER) 9.1 mg/dL 8.5-10.5 (test code = 697) EGFR (BEAKER) (test 60 mL/min/1.73 ESTIMA JOSÉ LUIS GFR IS code = 1092) sq m NOT ACCURATE CREATININE CLEARANCE IN PREDICTING GLOMERULAR FILTRATION RATE . ESTIMATED GFR I S NOT APPLICABLE FOR DIALYSIS PATIEN TS. [id number] 11:15:00 Test Item Value Reference Range Interpretation Comments PROTIME (BEAKER) (test code = 759) 11.7 sec 9.3-12.0 INR (BEAKER) (test code = 370) 1.1 <=5.9 PARTIAL THROMBOPLASTIN TIME (BEAKER) 27.5 sec 23.0-35.0 (test code = 760) RECOMMENDED COUMADIN/WARFARIN INR THERAPY RANGESSTANDARD DOSE: 2.0 - 3.0 Includes: PROPHYLAXIS forvenous thrombosis, systemic embolization; TREATMENT for venous thrombosis and/or pulmonary embolus.HIGH RISK: Target INR is 2.5-3.5 for patients with mechanical heart valves.Final Information (Auto Output)Final Information (Auto Output)Final Information (Auto Output)[id number] 11:11:00 Test Item Value Reference Range Interpretation Comments MAGNESIUM (BEAKER) (test code = 2.0 mg/dL 1.5-3.0 627) RAD, CHEST, 1 VIEW, NON [id number] 10:55:00Reason for exam:->chest pain FINAL REPORT CLINICAL HISTORY: chest pain TECHNIQUE: 1 view of the chest. COMPARISON: 06/10/2017 IMPRESSION: There is new pulmonary vascular congestion without lobar consolidation. There is blunting of the left costophrenic angle. The cardiomediastinal silhouette is magnified bytechnique with a pacemaker. Signed: Sia Hensley MDReport Verified Date/Time: 09/08/2017 10:55:33Reading Location: [facility] Radiology Reading Room CBC W/PLT COUNT & AUTO [id number] 10:47:00 Test Item Value Reference Range Interpretation Comments WHITE BLOOD CELL COUNT (BEAKER) 8.6 K/ L 4.0-10.0 (test code = 775) RED BLOOD CELL COUNT (BEAKER) 4.72 M/ L 4.20-5.80 (test code = 761) HEMOGLOBIN (BEAKER) (test code = 14.1 GM/DL 13.0-16.8 410) HEMATOCRIT (BEAKER) (test code = 42.7 % 40.0-50.0 411) MEAN CORPUSCULAR VOLUME (BEAKER) 90.5 fL 82.0-98.0 (test code = 753) MEAN CORPUSCULAR HEMOGLOBIN 29.8 pg 27.0-33.0 (BEAKER) (test code = 751) MEAN CORPUSCULAR HEMOGLOBIN CONC 32.9 GM/DL 32.0-36.0 (BEAKER) (test code = 752) RED CELL DISTRIBUTION WIDTH 15.8 % 10.3-14.2 H (BEAKER) (test code = 412) PLATELET COUNT (BEAKER) (test 273 K/CU MM 150-430 code = 756) MEAN PLATELET VOLUME (BEAKER) 9.1 fL 6.5-10.5 (test code = 754) NUCLEATED RED BLOOD CELLS 0 /100 WBC 0-0 (BEAKER) (test code = 413) NEUTROPHILS RELATIVE PERCENT 75 % (BEAKER) (test code = 429) LYMPHOCYTES RELATIVE PERCENT 15 % (BEAKER) (test code = 430) MONOCYTES RELATIVE PERCENT 7 % (BEAKER) (test code = 431) EOSINOPHILS RELATIVE PERCENT 3 % (BEAKER) (test code = 432) BASOPHILS RELATIVE PERCENT 1 % (BEAKER) (test code = 437) NEUTROPHILS ABSOLUTE COUNT 6.40 K/ L 1.80-8.00 (BEAKER) (test code = 670) LYMPHOCYTES ABSOLUTE COUNT 1.30 K/ L 1.48-4.50 L (BEAKER) (test code = 414) MONOCYTES ABSOLUTE COUNT (BEAKER) 0.60 K/ L 0.00-1.30 (test code = 415) EOSINOPHILS ABSOLUTE COUNT 0.20 K/ L 0.00-0.50 (BEAKER) (test code = 416) BASOPHILS ABSOLUTE COUNT (BEAKER) 0.10 K/ L 0.00-0.20 (test code = 417) HIV-1 PCR, [id number] 05:37:00 Test Item Value Reference Range Interpretation Comments HIV-1 RESULT HIV RNA not detected HIV RNA not detected COMPONENT (BEAKER) (test code = 2703) This test uses a Real-Time Polymerase Chain Reaction (RT-PCR) methodology to detect a highly conserved region of the HIV-1 gag gene and was performed using the [employer] AmpliPrep/JENN[employer]ER TaqMan HIV-1 test kit version 2.0 ([employer]Reportable range for this assay is 20 - 10,000,000 copies per mL (1.3 - 7.0 Log copies/mL).DOUBLE-STRANDED DNA (DSDNA) [id number] 10:04:00 Test Item Value Reference Range Interpretation Comments ANTI-DNA DS (BEAKER) (test code = Negative 1055) TIFF TITER AND [id number] 11:54:00 Test Item Value Reference Range Interpretation Comments TIFF TITER (BEAKER) (test code = :160 1541) TIFF PATTERN (BEAKER) (test code = Homogeneous 1781) ANTI-NUCLEAR ANTIBODY (TIFF)2017-06-14 11:53:00 Test Item Value Reference Range Interpretation Comments ANTI-NUCLEAR ANTIBODY (TIFF) (BEAKER) Positive Negative A (test code = 418) POCT-GLUCOSE [id number] 05:52:00 Test Item Value Reference Range Interpretation Comments POC-GLUCOSE METER 96 mg/dL 70-110 TESTED AT [address] [facility] (test code = [facility] [place] 1538) [id number] BASIC METABOLIC [id number] 05:15:00 Test Item Value Reference Range Interpretation Comments SODIUM (BEAKER) 141 meq/L 135-148 (test code = 381) POTASSIUM (BEAKER) 3.5 meq/L 3.6-5.5 L (test code = 379) CHLORIDE (BEAKER) 98 meq/L 98-106 (test code = 382) CO2 (BEAKER) (test 34 meq/L 20-29 H code = 355) BLOOD UREA NITROGEN 28 mg/dL 10-26 H (BEAKER) (test code = 354) CREATININE (BEAKER) 1.30 mg/dL 0.50-1.20 H (test code = 358) GLUCOSE RANDOM 66 mg/dL 70-110 L (BEAKER) (test code = 652) CALCIUM (BEAKER) 9.0 mg/dL 8.5-10.5 (test code = 697) EGFR (BEAKER) (test 60 mL/min/1.73 ESTIMA JOSÉ LUIS GFR IS code = 1092) sq m NOT ACCURATE CREATININE CLEARANCE IN PREDICTING GLOMERULAR FILTRATION RATE . ESTIMATED GFR I S NOT APPLICABLE FOR DIALYSIS PATIEN TS. POCT-GLUCOSE [id number] 05:09:00 Test Item Value Reference Range Interpretation Comments POC-GLUCOSE METER 67 mg/dL 70-110 L TESTED AT [facility] (BEAKER) (test code = [facility] [place] 15[facility]) [address] POCT-GLUCOSE [id number] 21:55:00 Test Item Value Reference Range Interpretation Comments POC-GLUCOSE METER 142 mg/dL 70-110 H TESTED AT [address] (BEAKER) (test code [facility] [place] = 1538) [address] POCT-GLUCOSE [id number] 19:05:00 Test Item Value Reference Range Interpretation Comments POC-GLUCOSE METER 139 mg/dL 70-110 H TESTED AT [address] ([facility]) (test code [facility] [place] = 1538) [id number] POCT-GLUCOSE [id number] 16:54:00 Test Item Value Reference Range Interpretation Comments POC-GLUCOSE METER 59 mg/dL 70-110 L TESTED AT [address] ([facility]) (test code = [facility] [place] 1538) [address] POCT-GLUCOSE [id number] 13:19:00 Test Item Value Reference Range Interpretation Comments POC-GLUCOSE METER 235 mg/dL 70-110 H TESTED AT [address] ([facility]) (test code [facility] [place] = 1538) [address] POCT-GLUCOSE [id number] 06:52:00 Test Item Value Reference Range Interpretation Comments POC-GLUCOSE METER 113 mg/dL 70-110 H TESTED AT [address] ([facility]) (test code [facility] [place] = 1538) [address] POCT-GLUCOSE [id number] 21:48:00 Test Item Value Reference Range Interpretation Comments POC-GLUCOSE METER 183 mg/dL 70-110 H TESTED AT [address] ([facility]) (test code [facility] [place] = 1538) [address] POCT-GLUCOSE [id number] 17:22:00 Test Item Value Reference Range Interpretation Comments POC-GLUCOSE METER 262 mg/dL 70-110 H TESTED AT [address] ([facility]) (test code [facility] [place] = 1538) [address] POCT-GLUCOSE [id number] 12:30:00 Test Item Value Reference Range Interpretation Comments POC-GLUCOSE METER 131 mg/dL 70-110 H TESTED AT [address] ([facility]) (test code [facility] [place] = 1538) [id number] MICROALBUMIN, RANDOM [id number] 12:25:00 Test Item Value Reference Range Interpretation Comments MICROALBUMIN URINE ([facility]) (test 59.0 mg/dL code = 1794) Reference Range: No NormalsHEPATITIS PANEL, [id number] 11:31:00 Test Item Value Reference Range Interpretation Comments HEPATITIS A IGM ANTIBODY ([facility]) Nonreactive Nonreactive (test code = 498) HEPATITIS B CORE IGM ANTIBODY Nonreactive Nonreactive ([facility]) (test code = 645) HEPATITIS C ANTIBODY (BEAKER) Nonreactive Nonreactive (test code = 367) HEPATITIS B SURFACE ANTIGEN (2) Nonreactive Nonreactive (BEAKER) (test code = 2585) COMPLEMENT COMPONENT [id number] 11:09:00 Test Item Value Reference Range Interpretation Comments C4 COMPLEMENT (BEAKER) (test code = 28 mg/dL 15-57 394) COMPLEMENT COMPONENT [id number] 11:09:00 Test Item Value Reference Range Interpretation Comments C3 COMPLEMENT (BEAKER) (test code = 145 mg/dL 82-193 393) POCT-GLUCOSE [id number] 06:48:00 Test Item Value Reference Range Interpretation Comments POC-GLUCOSE METER 75 mg/dL 70-110 TESTED AT [facility] (BEAKER) (test code = [facility] 1538) [id number] TROPONIN [id number] 05:58:00 Test Item Value Reference Range Interpretation Comments TROPONIN I (BEAKER) (test code = 397) < ng/mL 0.00-0.15 Troponin I (TnI) levels must be interpreted in the context of the presenting symptoms and the clinical findings. Elevated TnI levels indicate myocardial damage, but are not specific for ischemic heart disease. Elevated TnI levels are seen in patients with other cardiac conditions (including myocarditis and congestive heart failure), and slight TnI elevations occur in patients with other conditions, including sepsis, renal failure, acidosis, acute neurological disease, and persistent tachyarrhythmia.BASIC METABOLIC [id number] 05:49:00 Test Item Value Reference Range Interpretation Comments SODIUM (BEAKER) 141 meq/L 135-148 (test code = 381) POTASSIUM (BEAKER) 4.0 meq/L 3.6-5.5 (test code = 379) CHLORIDE (BEAKER) 106 meq/L 98-106 (test code = 382) CO2 (BEAKER) (test 27 meq/L 20-29 code = 355) BLOOD UREA NITROGEN 23 mg/dL 10-26 (BEAKER) (test code = 354) CREATININE (BEAKER) 1.50 mg/dL 0.50-1.20 H (test code = 358) GLUCOSE RANDOM 92 mg/dL 70-110 (BEAKER) (test code = 652) CALCIUM (BEAKER) 8.5 mg/dL 8.5-10.5 (test code = 697) EGFR ([facility]) (test 51 mL/min/1.73 ESTIMA JOSÉ LUIS GFR IS code = 1092) sq m NOT ACCURATE CREATININE CLEARANCE IN PREDICTING GLOMERULAR FILTRATION RATE . ESTIMATED GFR I S NOT APPLICABLE FOR DIALYSIS PATIEN TS. [id number] 05:48:00 Test Item Value Reference Range Interpretation Comments PHOSPHORUS ([facility]) (test code = 4.2 mg/dL 2.5-4.5 604) POCT-GLUCOSE [id number] 21:18:00 Test Item Value Reference Range Interpretation Comments POC-GLUCOSE METER 146 mg/dL 70-110 H TESTED AT [address]) (test code [facility] = 1538) [address]14 TROPONIN [id number] 18:26:00 Test Item Value Reference Range Interpretation Comments TROPONIN I ([facility]) (test code = 0.04 ng/mL 0.00-0.15 397) Troponin I (TnI) levels must be interpreted in the context of the presenting symptoms and the clinical findings. Elevated TnI levels indicate myocardial damage, but are not specific for ischemic heart disease. Elevated TnI levels are seen in patients with other cardiac conditions (including myocarditis and congestive heart failure), and slight TnI elevations occur in patients with other conditions, including sepsis, renal failure, acidosis, acute neurological disease, and persistent tachyarrhythmia.POCT-GLUCOSE [id number] 17:07:00 Test Item Value Reference Range Interpretation Comments POC-GLUCOSE METER 97 mg/dL 70-110 TESTED AT [address] ([facility]) (test code = [address] 1538) [id number] POCT-GLUCOSE [id number] 13:31:00 Test Item Value Reference Range Interpretation Comments POC-GLUCOSE METER 125 mg/dL 70-110 H TESTED AT [address]) (test code [facility] = 1538) [address] TROPONIN [id number] 06:11:00 Test Item Value Reference Range Interpretation Comments TROPONIN I ([facility]) (test code = 397) < ng/mL 0.00-0.15 Troponin I (TnI) levels must be interpreted in the context of the presenting symptoms and the clinical findings. Elevated TnI levels indicate myocardial damage, but are not specific for ischemic heart disease. Elevated TnI levels are seen in patients with other cardiac conditions (including myocarditis and congestive heart failure), and slight TnI elevations occur in patients with other conditions, including sepsis, renal failure, acidosis, acute neurological disease, and persistent tachyarrhythmia.LIPID [id number] 06:05:00 Test Item Value Reference Range Interpretation Comments TRIGLYCERIDES (BEAKER) (test code = 75 mg/dL 540) CHOLESTEROL (BEAKER) (test code = 174 mg/dL 631) HDL CHOLESTEROL (BEAKER) (test code 26 mg/dL = 976) LDL CHOLESTEROL CALCULATED (BEAKER) 133 mg/dL (test code = 633) Triglyceride Reference Range: Low Risk <150 Borderline 150-199 High Risk 200-499 Very High Risk >=500Cholesterol Reference Range: Low Risk <200 Borderline 200-239 High Risk >240HDL Cholesterol Reference Range: Low Risk >=60 High Risk <40LDL Cholesterol Reference Range: Optimal <100 Near Optimal 100-129 Borderline 130-159 High 160-189 Very High >=190BASIC METABOLIC [id number] 06:03:00 Test Item Value Reference Range Interpretation Comments SODIUM (BEAKER) 140 meq/L 135-148 (test code = 381) POTASSIUM (BEAKER) 4.4 meq/L 3.6-5.5 (test code = 379) CHLORIDE (BEAKER) 109 meq/L 98-106 H (test code = 382) CO2 (BEAKER) (test 26 meq/L 20-29 code = 355) BLOOD UREA NITROGEN 22 mg/dL 10-26 (BEAKER) (test code = 354) CREATININE (BEAKER) 1.50 mg/dL 0.50-1.20 H (test code = 358) GLUCOSE RANDOM 211 mg/dL 70-110 H (BEAKER) (test code = 652) CALCIUM (BEAKER) 8.5 mg/dL 8.5-10.5 (test code = 697) EGFR (BEAKER) (test 51 mL/min/1.73 ESTIMA JOSÉ LUIS GFR IS code = 1092) sq m NOT ACCURATE CREATININE CLEARANCE IN PREDICTING GLOMERULAR FILTRATION RATE . ESTIMATED GFR I S NOT APPLICABLE FOR DIALYSIS PATIEN TS. [id number] 05:57:00 Test Item Value Reference Range Interpretation Comments MAGNESIUM (BEAKER) (test code = 1.9 mg/dL 1.5-3.0 627) HEMOGLOBIN [id number] 05:56:00 Test Item Value Reference Range Interpretation Comments HEMOGLOBIN A1C (BEAKER) (test code = 7.7 % 4.3-6.1 H 368) CBC W/PLT COUNT & AUTO [id number] 05:31:00 Test Item Value Reference Range Interpretation Comments WHITE BLOOD CELL COUNT (BEAKER) 8.5 K/ L 4.0-10.0 (test code = 775) RED BLOOD CELL COUNT (BEAKER) 4.34 M/ L 4.20-5.80 (test code = 761) HEMOGLOBIN (BEAKER) (test code = 13.1 GM/DL 13.0-16.8 410) HEMATOCRIT (BEAKER) (test code = 40.1 % 40.0-50.0 411) MEAN CORPUSCULAR VOLUME (BEAKER) 92.5 fL 82.0-98.0 (test code = 753) MEAN CORPUSCULAR HEMOGLOBIN 30.2 pg 27.0-33.0 (BEAKER) (test code = 751) MEAN CORPUSCULAR HEMOGLOBIN CONC 32.7 GM/DL 32.0-36.0 (BEAKER) (test code = 752) RED CELL DISTRIBUTION WIDTH 15.4 % 10.3-14.2 H (BEAKER) (test code = 412) PLATELET COUNT (BEAKER) (test 256 K/CU MM 150-430 code = 756) MEAN PLATELET VOLUME (BEAKER) 9.3 fL 6.5-10.5 (test code = 754) NUCLEATED RED BLOOD CELLS 0 /100 WBC 0-0 (BEAKER) (test code = 413) NEUTROPHILS RELATIVE PERCENT 65 % (BEAKER) (test code = 429) LYMPHOCYTES RELATIVE PERCENT 21 % (BEAKER) (test code = 430) MONOCYTES RELATIVE PERCENT 10 % (BEAKER) (test code = 431) EOSINOPHILS RELATIVE PERCENT 3 % (BEAKER) (test code = 432) BASOPHILS RELATIVE PERCENT 1 % (BEAKER) (test code = 437) NEUTROPHILS ABSOLUTE COUNT 5.60 K/ L 1.80-8.00 (BEAKER) (test code = 670) LYMPHOCYTES ABSOLUTE COUNT 1.80 K/ L 1.48-4.50 (BEAKER) (test code = 414) MONOCYTES ABSOLUTE COUNT (BEAKER) 0.80 K/ L 0.00-1.30 (test code = 415) EOSINOPHILS ABSOLUTE COUNT 0.30 K/ L 0.00-0.50 (BEAKER) (test code = 416) BASOPHILS ABSOLUTE COUNT (BEAKER) 0.10 K/ L 0.00-0.20 (test code = 417) TROPONIN [id number] 22:53:00 Test Item Value Reference Range Interpretation Comments TROPONIN I (BEAKER) (test code = 397) < ng/mL 0.00-0.15 Troponin I (TnI) levels must be interpreted in the context of the presenting symptoms and the clinical findings. Elevated TnI levels indicate myocardial damage, but are not specific for ischemic heart disease. Elevated TnI levels are seen in patients with other cardiac conditions (including myocarditis and congestive heart failure), and slight TnI elevations occur in patients with other conditions, including sepsis, renal failure, acidosis, acute neurological disease, and persistent tachyarrhythmia.U/S, ABDOMINAL, [id number] 22:08:00Reason for exam:->AscitesReason for exam:->BLOATEDFINAL REPORT U/S, ABDOMINAL, COMPLETE INDICATION: "AscitesBLOATED" COMPARISON: None. TECHNIQUE: Real-time transabdominal alvarez scale and color Doppler ultrasound of the abdomen.FINDINGS:Visualized portion of the pancreas is normal.Normal liver echotexture and echogenicity without a discrete mass or intrahepatic bile duct dilation.Normal caliber CBD at 4 mm.Gallbladder is contr acted. No cholelithiasis. No pericholecystic fluid.Sonographic Rob's sign is negative.Visualized portions of the kidneys are unremarkable without obvious hydronephrosis.Borderline splenomegaly at 13cm.The visualized portions of the IVC and aorta are unremarkable. IMPRESSION: Contracted gallbladder.Borderline splenomegaly.No ascites. Signed: Suzan Phillips MDReport Verified Date/Time: 06/10/2017 22:08:13 Reading Location: [address] Reading Room URINALYSIS W/ REFLEX URINE [id number] 18:41:00 Test Item Value Reference Range Interpretation Comments COLOR (BEAKER) (test code = 470) Yellow CLARITY (BEAKER) (test code = Clear 469) SPECIFIC GRAVITY UA (BEAKER) >= 1.001-1.035 (test code = 468) PH UA (BEAKER) (test code = 467) 5.5 5.0-8.0 PROTEIN UA (BEAKER) (test code = >=300 mg/dL Negative A 464) GLUCOSE UA (BEAKER) (test code = 100 mg/dL Negative A 365) KETONES UA (BEAKER) (test code = Negative Negative 371) BILIRUBIN UA (BEAKER) (test code Negative Negative = 462) BLOOD UA (BEAKER) (test code = Moderate Negative A 461) NITRITE UA (BEAKER) (test code = Negative Negative 465) LEUKOCYTE ESTERASE UA (BEAKER) Negative Negative (test code = 466) UROBILINOGEN UA (BEAKER) (test 0.2 mg/dL 0.2-1.0 code = 463) BACTERIA (BEAKER) (test code = None Seen 517) AMORPHOUS CRYSTALS (BEAKER) (test Moderate code = 1584) RBC UA-MANUAL (BEAKER) (test code <5 /HPF = 1659) WBC UA-MANUAL (BEAKER) (test code <5 /HPF = 1661) SQUAMOUS EPITHELIAL MANUAL <5 /HPF (BEAKER) (test code = 1663) SOURCE(BEAKER) (test code = 2795) TROPONIN [id number] 13:07:00 Test Item Value Reference Range Interpretation Comments TROPONIN I (BEAKER) (test code = 397) < ng/mL 0.00-0.15 Troponin I (TnI) levels must be interpreted in the context of the presenting symptoms and the clinical findings. Elevated TnI levels indicate myocardial damage, but are not specific for ischemic heart disease. Elevated TnI levels are seen in patients with other cardiac conditions (including myocarditis and congestive heart failure), and slight TnI elevations occur in patients with other conditions, including sepsis, renal failure, acidosis, acute neurological disease, and persistent tachyarrhythmia.CREATINE KINASE (CK), TOTAL AND MB 2017-06-10 13:06:00 Test Item Value Reference Range Interpretation Comments CREATINE KINASE TOTAL (BEAKER) 390 U/L 40-250 H (test code = 380) CREATINE KINASE-MB (BEAKER) (test 5.9 ng/mL 0.0-4.9 H code = 750) CREATINE KINASE-MB INDEX (BEAKER) 1.5 % (test code = 395) CK-MB Reference Range:<5 Normal5-10 Borderline>10 AbnormalB-TYPE NATRIURETIC FACTOR (BNP)2017-06-10 13:05:00 Test Item Value Reference Range Interpretation Comments B-TYPE NATRIURETIC PEPTIDE (BEAKER) 555 pg/mL 0-100 H (test code = 700) HEPATIC FUNCTION [id number] 12:59:00 Test Item Value Reference Range Interpretation Comments TOTAL PROTEIN (BEAKER) (test code = 6.1 gm/dL 6.0-8.5 770) ALBUMIN (BEAKER) (test code = 1145) 3.0 g/dL 3.5-5.0 L BILIRUBIN TOTAL (BEAKER) (test code 0.6 mg/dL 0.1-1.2 = 377) BILIRUBIN DIRECT (BEAKER) (test 0.3 mg/dL 0.0-0.4 code = 706) ALKALINE PHOSPHATASE (BEAKER) (test 84 U/L 30-115 code = 346) AST (SGOT) (BEAKER) (test code = 18 U/L 5-40 353) ALT (SGPT) (BEAKER) (test code = 23 U/L 5-50 347) [id number] 12:59:00 Test Item Value Reference Range Interpretation Comments LIPASE (BEAKER) (test code = 749) 19 U/L 6-51 BASIC METABOLIC [id number] 12:57:00 Test Item Value Reference Range Interpretation Comments SODIUM (BEAKER) 139 meq/L 135-148 (test code = 381) POTASSIUM (BEAKER) 4.9 meq/L 3.6-5.5 (test code = 379) CHLORIDE (BEAKER) 107 meq/L 98-106 H (test code = 382) CO2 (BEAKER) (test 30 meq/L 20-29 H code = 355) BLOOD UREA NITROGEN 22 mg/dL 10-26 (BEAKER) (test code = 354) CREATININE (BEAKER) 1.60 mg/dL 0.50-1.20 H (test code = 358) GLUCOSE RANDOM 200 mg/dL 70-110 H (BEAKER) (test code = 652) CALCIUM (BEAKER) 8.3 mg/dL 8.5-10.5 L (test code = 697) EGFR (BEAKER) (test 47 mL/min/1.73 ESTIMA JOSÉ LUIS GFR IS code = 1092) sq m NOT ACCURATE CREATININE CLEARANCE IN PREDICTING GLOMERULAR FILTRATION RATE . ESTIMATED GFR I S NOT APPLICABLE FOR DIALYSIS PATIEN TS. CBC W/PLT COUNT & AUTO [id number] 12:37:00 Test Item Value Reference Range Interpretation Comments WHITE BLOOD CELL COUNT (BEAKER) 9.0 K/ L 4.0-10.0 (test code = 775) RED BLOOD CELL COUNT (BEAKER) 4.29 M/ L 4.20-5.80 (test code = 761) HEMOGLOBIN (BEAKER) (test code = 12.9 GM/DL 13.0-16.8 L 410) HEMATOCRIT (BEAKER) (test code = 39.8 % 40.0-50.0 L 411) MEAN CORPUSCULAR VOLUME (BEAKER) 93.0 fL 82.0-98.0 (test code = 753) MEAN CORPUSCULAR HEMOGLOBIN 30.1 pg 27.0-33.0 (BEAKER) (test code = 751) MEAN CORPUSCULAR HEMOGLOBIN CONC 32.3 GM/DL 32.0-36.0 (BEAKER) (test code = 752) RED CELL DISTRIBUTION WIDTH 15.1 % 10.3-14.2 H (BEAKER) (test code = 412) PLATELET COUNT (BEAKER) (test 239 K/CU MM 150-430 code = 756) MEAN PLATELET VOLUME (BEAKER) 9.1 fL 6.5-10.5 (test code = 754) NUCLEATED RED BLOOD CELLS 0 /100 WBC 0-0 (BEAKER) (test code = 413) NEUTROPHILS RELATIVE PERCENT 74 % (BEAKER) (test code = 429) LYMPHOCYTES RELATIVE PERCENT 15 % (BEAKER) (test code = 430) MONOCYTES RELATIVE PERCENT 8 % (BEAKER) (test code = 431) EOSINOPHILS RELATIVE PERCENT 2 % (BEAKER) (test code = 432) BASOPHILS RELATIVE PERCENT 1 % (BEAKER) (test code = 437) NEUTROPHILS ABSOLUTE COUNT 6.60 K/ L 1.80-8.00 (BEAKER) (test code = 670) LYMPHOCYTES ABSOLUTE COUNT 1.30 K/ L 1.48-4.50 L (BEAKER) (test code = 414) MONOCYTES ABSOLUTE COUNT (BEAKER) 0.70 K/ L 0.00-1.30 (test code = 415) EOSINOPHILS ABSOLUTE COUNT 0.20 K/ L 0.00-0.50 (BEAKER) (test code = 416) BASOPHILS ABSOLUTE COUNT (BEAKER) 0.10 K/ L 0.00-0.20 (test code = 417) RAD, CHEST, 1 VIEW, NON [id number] 12:32:00Reason for exam:->shortness of breathReason for exam:->BLOATEDShould [facility]?->YesFINAL REPORT Comparison: 04/06/2012 TECHNIQUE: Single view of the chest FINDINGS: Lung volumes are low. Prominence of the cardiac silhouette and vasculature which may be related topoor inspiration and technique . There is no gross consolidation identified. No overt edema or largepleural effusion. Left-sided pacing device noted. No acute skeletal abnormality. Signed: Veronica Bonilla Verified Date/Time: 06/10/2017 12:32:49 Reading Location: [facility] Radiology Reading Room POCT-GLUCOSE [id number] 07:40:00 Test Item Value Reference Range Interpretation Comments POC-GLUCOSE METER 100 mg/dL 70-110 TESTED AT [address] ([facility]) (test code [address] [facility] = 1538) [id number] POCT-GLUCOSE [id number] 06:57:00 Test Item Value Reference Range Interpretation Comments POC-GLUCOSE METER 50 mg/dL 70-110 L TESTED AT [address] ([facility]) (test code = [address] [facility] 1538) [id number] POCT-GLUCOSE [id number] 20:59:00 Test Item Value Reference Range Interpretation Comments POC-GLUCOSE METER 142 mg/dL 70-110 H TESTED AT [address] ([facility]) (test code [address] [facility] [place] = 1538) [id number] POCT-GLUCOSE [id number] 17:23:00 Test Item Value Reference Range Interpretation Comments POC-GLUCOSE METER 123 mg/dL 70-110 H TESTED AT [facility] (test code [address] [facility] [place] = 1538) [id number] POCT-GLUCOSE [id number] 12:38:00 Test Item Value Reference Range Interpretation Comments POC-GLUCOSE METER 153 mg/dL 70-110 H TESTED AT [facility] (BEAKER) (test code [address] [facility] [place] = 1538) [id number] BASIC METABOLIC [id number] 05:49:00 Test Item Value Reference Range Interpretation Comments SODIUM (BEAKER) 141 meq/L 135-148 (test code = 381) POTASSIUM (BEAKER) 4.4 meq/L 3.6-5.5 (test code = 379) CHLORIDE (BEAKER) 107 meq/L 98-106 H (test code = 382) CO2 (BEAKER) (test 24 meq/L 20-29 code = 355) BLOOD UREA NITROGEN 21 mg/dL 10-26 (BEAKER) (test code = 354) CREATININE (BEAKER) 0.90 mg/dL 0.50-1.20 (test code = 358) GLUCOSE RANDOM 98 mg/dL 70-110 (BEAKER) (test code = 652) CALCIUM (BEAKER) 8.5 mg/dL 8.5-10.5 (test code = 697) EGFR (BEAKER) (test 92 mL/min/1.73 ESTIMA JOSÉ LUIS GFR IS code = 1092) sq m NOT ACCURATE CREATININE CLEARANCE IN PREDICTING GLOMERULAR FILTRATION RATE . ESTIMATED GFR I S NOT APPLICABLE FOR DIALYSIS PATIEN TS. POCT-GLUCOSE [id number] 05:36:00 Test Item Value Reference Range Interpretation Comments POC-GLUCOSE METER 74 mg/dL 70-110 TESTED AT [facility] (BEAKER) (test code = [address] [facility] 1538) [id number] CBC W/PLT COUNT & AUTO [id number] 05:29:00 Test Item Value Reference Range Interpretation Comments WHITE BLOOD CELL COUNT (BEAKER) 9.4 K/ L 4.0-10.0 (test code = 775) RED BLOOD CELL COUNT (BEAKER) 4.19 M/ L 4.20-5.80 L (test code = 761) HEMOGLOBIN (BEAKER) (test code = 12.7 GM/DL 13.0-16.8 L 410) HEMATOCRIT (BEAKER) (test code = 39.1 % 40.0-50.0 L 411) MEAN CORPUSCULAR VOLUME (BEAKER) 93.3 fL 82.0-98.0 (test code = 753) MEAN CORPUSCULAR HEMOGLOBIN 30.4 pg 27.0-33.0 (BEAKER) (test code = 751) MEAN CORPUSCULAR HEMOGLOBIN CONC 32.5 GM/DL 32.0-36.0 (BEAKER) (test code = 752) RED CELL DISTRIBUTION WIDTH 15.0 % 10.3-14.2 H (BEAKER) (test code = 412) PLATELET COUNT (BEAKER) (test 153 K/CU MM 150-430 code = 756) MEAN PLATELET VOLUME (BEAKER) 9.9 fL 6.5-10.5 (test code = 754) NUCLEATED RED BLOOD CELLS 0 /100 WBC 0-0 (BEAKER) (test code = 413) NEUTROPHILS RELATIVE PERCENT 70 % (BEAKER) (test code = 429) LYMPHOCYTES RELATIVE PERCENT 20 % (BEAKER) (test code = 430) MONOCYTES RELATIVE PERCENT 6 % (BEAKER) (test code = 431) EOSINOPHILS RELATIVE PERCENT 3 % (BEAKER) (test code = 432) BASOPHILS RELATIVE PERCENT 1 % (BEAKER) (test code = 437) NEUTROPHILS ABSOLUTE COUNT 6.60 K/ L 1.80-8.00 (BEAKER) (test code = 670) LYMPHOCYTES ABSOLUTE COUNT 1.90 K/ L 1.48-4.50 (BEAKER) (test code = 414) MONOCYTES ABSOLUTE COUNT (BEAKER) 0.50 K/ L 0.00-1.30 (test code = 415) EOSINOPHILS ABSOLUTE COUNT 0.30 K/ L 0.00-0.50 (BEAKER) (test code = 416) BASOPHILS ABSOLUTE COUNT (BEAKER) 0.10 K/ L 0.00-0.20 (test code = 417) POCT-GLUCOSE [id number] 19:53:00 Test Item Value Reference Range Interpretation Comments POC-GLUCOSE METER 120 mg/dL 70-110 H TESTED AT [address] ([facility]) (test code [facility] [place] = 1538) [id number] POCT-GLUCOSE [id number] 15:41:00 Test Item Value Reference Range Interpretation Comments POC-GLUCOSE METER 135 mg/dL 70-110 H TESTED AT [address] ([facility]) (test code [address] [facility] = 1538) [id number] RAD, CHEST, 1 VIEW, NON [id number] 12:31:00Reason for exam:->follow up FINAL REPORT COMPARISON: 04/03/2017 TECHNIQUE: Single view of the chest FINDINGS: Small left pleural effusion with adjacent airspace disease. There is mild vascular congestion elsewhere. Cardiac silhouette is enlarged. Left-sided pacing device noted. Signed: Gab Bonilla MDReport Verified Date/Time: 04/06/2017 12:31:34 Reading Location: [facility] Radiology Reading Room POCT- GLUCOSE [id number] 11:39:00 Test Item Value Reference Range Interpretation Comments POC-GLUCOSE METER 184 mg/dL 70-110 H TESTED AT [address] ([facility]) (test code [address] [facility] [place] = 1538) [id number] POCT-GLUCOSE [id number] 07:18:00 Test Item Value Reference Range Interpretation Comments POC-GLUCOSE METER 83 mg/dL 70-110 TESTED AT [address] ([facility]) (test code = [address] [facility] 1538) [id number] BASIC METABOLIC [id number] 06:01:00 Test Item Value Reference Range Interpretation Comments SODIUM (BEAKER) 142 meq/L 135-148 (test code = 381) POTASSIUM (BEAKER) 4.4 meq/L 3.6-5.5 (test code = 379) CHLORIDE (BEAKER) 109 meq/L 98-106 H (test code = 382) CO2 (BEAKER) (test 27 meq/L 20-29 code = 355) BLOOD UREA NITROGEN 27 mg/dL 10-26 H (BEAKER) (test code = 354) CREATININE (BEAKER) 1.10 mg/dL 0.50-1.20 (test code = 358) GLUCOSE RANDOM 102 mg/dL 70-110 (BEAKER) (test code = 652) CALCIUM (BEAKER) 8.4 mg/dL 8.5-10.5 L (test code = 697) EGFR (BEAKER) (test 73 mL/min/1.73 ESTIMA JOSÉ LUIS GFR IS code = 1092) sq m NOT ACCURATE CREATININE CLEARANCE IN PREDICTING GLOMERULAR FILTRATION RATE . ESTIMATED GFR I S NOT APPLICABLE FOR DIALYSIS PATIEN TS. B-TYPE NATRIURETIC FACTOR (BNP)2017-04-06 05:55:00 Test Item Value Reference Range Interpretation Comments B-TYPE NATRIURETIC PEPTIDE (BEAKER) 675 pg/mL 0-100 H (test code = 700) CBC W/PLT COUNT & AUTO [id number] 05:39:00 Test Item Value Reference Range Interpretation Comments WHITE BLOOD CELL COUNT (BEAKER) 10.1 K/ L 4.0-10.0 H (test code = 775) RED BLOOD CELL COUNT (BEAKER) 4.12 M/ L 4.20-5.80 L (test code = 761) HEMOGLOBIN (BEAKER) (test code = 12.5 GM/DL 13.0-16.8 L 410) HEMATOCRIT (BEAKER) (test code = 38.2 % 40.0-50.0 L 411) MEAN CORPUSCULAR VOLUME (BEAKER) 92.7 fL 82.0-98.0 (test code = 753) MEAN CORPUSCULAR HEMOGLOBIN 30.4 pg 27.0-33.0 (BEAKER) (test code = 751) MEAN CORPUSCULAR HEMOGLOBIN CONC 32.7 GM/DL 32.0-36.0 (BEAKER) (test code = 752) RED CELL DISTRIBUTION WIDTH 15.4 % 10.3-14.2 H (BEAKER) (test code = 412) PLATELET COUNT (BEAKER) (test 233 K/CU MM 150-430 code = 756) MEAN PLATELET VOLUME (BEAKER) 9.9 fL 6.5-10.5 (test code = 754) NUCLEATED RED BLOOD CELLS 0 /100 WBC 0-0 (BEAKER) (test code = 413) NEUTROPHILS RELATIVE PERCENT 71 % (BEAKER) (test code = 429) LYMPHOCYTES RELATIVE PERCENT 19 % (BEAKER) (test code = 430) MONOCYTES RELATIVE PERCENT 7 % (BEAKER) (test code = 431) EOSINOPHILS RELATIVE PERCENT 3 % (BEAKER) (test code = 432) BASOPHILS RELATIVE PERCENT 0 % (BEAKER) (test code = 437) NEUTROPHILS ABSOLUTE COUNT 7.20 K/ L 1.80-8.00 (BEAKER) (test code = 670) LYMPHOCYTES ABSOLUTE COUNT 1.90 K/ L 1.48-4.50 (BEAKER) (test code = 414) MONOCYTES ABSOLUTE COUNT (BEAKER) 0.70 K/ L 0.00-1.30 (test code = 415) EOSINOPHILS ABSOLUTE COUNT 0.30 K/ L 0.00-0.50 (BEAKER) (test code = 416) BASOPHILS ABSOLUTE COUNT (BEAKER) 0.00 K/ L 0.00-0.20 (test code = 417) POCT-GLUCOSE [id number] 21:56:00 Test Item Value Reference Range Interpretation Comments POC-GLUCOSE METER 144 mg/dL 70-110 H TESTED AT [address] ([facility]) (test code [address] [facility] [place] = 1538) [id number] POCT-GLUCOSE [id number] 16:38:00 Test Item Value Reference Range Interpretation Comments POC-GLUCOSE METER 153 mg/dL 70-110 H TESTED AT [address] ([facility]) (test code [address] [facility] [place] = 1538) [address] POCT-GLUCOSE [id number] 12:52:00 Test Item Value Reference Range Interpretation Comments POC-GLUCOSE METER 144 mg/dL 70-110 H TESTED AT [address] ([facility]) (test code [address] [facility] [place] = 1538) [id number] POCT-GLUCOSE [id number] 06:07:00 Test Item Value Reference Range Interpretation Comments POC-GLUCOSE METER 124 mg/dL 70-110 H TESTED AT [address] ([facility]) (test code [address] [facility] [place] = 1538) [id number] BASIC METABOLIC [id number] 05:26:00 Test Item Value Reference Range Interpretation Comments SODIUM (BEAKER) 140 meq/L 135-148 (test code = 381) POTASSIUM (BEAKER) 4.2 meq/L 3.6-5.5 (test code = 379) CHLORIDE (BEAKER) 108 meq/L 98-106 H (test code = 382) CO2 (BEAKER) (test 26 meq/L 20-29 code = 355) BLOOD UREA NITROGEN 25 mg/dL 10-26 (BEAKER) (test code = 354) CREATININE (BEAKER) 1.20 mg/dL 0.50-1.20 (test code = 358) GLUCOSE RANDOM 140 mg/dL 70-110 H (BEAKER) (test code = 652) CALCIUM (BEAKER) 8.1 mg/dL 8.5-10.5 L (test code = 697) EGFR (BEAKER) (test 66 mL/min/1.73 ESTIMA JOSÉ LUIS GFR IS code = 1092) sq m NOT ACCURATE CREATININE CLEARANCE IN PREDICTING GLOMERULAR FILTRATION RATE . ESTIMATED GFR I S NOT APPLICABLE FOR DIALYSIS PATIEN TS. [id number] 05:20:00 Test Item Value Reference Range Interpretation Comments MAGNESIUM (BEAKER) (test code = 2.4 mg/dL 1.5-3.0 627) CBC W/PLT COUNT & AUTO [id number] 05:19:00 Test Item Value Reference Range Interpretation Comments WHITE BLOOD CELL COUNT (BEAKER) 9.1 K/ L 4.0-10.0 (test code = 775) RED BLOOD CELL COUNT (BEAKER) 3.78 M/ L 4.20-5.80 L (test code = 761) HEMOGLOBIN (BEAKER) (test code = 11.7 GM/DL 13.0-16.8 L 410) HEMATOCRIT (BEAKER) (test code = 35.2 % 40.0-50.0 L 411) MEAN CORPUSCULAR VOLUME (BEAKER) 93.1 fL 82.0-98.0 (test code = 753) MEAN CORPUSCULAR HEMOGLOBIN 31.0 pg 27.0-33.0 (BEAKER) (test code = 751) MEAN CORPUSCULAR HEMOGLOBIN CONC 33.3 GM/DL 32.0-36.0 (BEAKER) (test code = 752) RED CELL DISTRIBUTION WIDTH 14.9 % 10.3-14.2 H (BEAKER) (test code = 412) PLATELET COUNT (BEAKER) (test 204 K/CU MM 150-430 code = 756) MEAN PLATELET VOLUME (BEAKER) 9.8 fL 6.5-10.5 (test code = 754) NUCLEATED RED BLOOD CELLS 0 /100 WBC 0-0 (BEAKER) (test code = 413) NEUTROPHILS RELATIVE PERCENT 69 % (BEAKER) (test code = 429) LYMPHOCYTES RELATIVE PERCENT 21 % (BEAKER) (test code = 430) MONOCYTES RELATIVE PERCENT 6 % (BEAKER) (test code = 431) EOSINOPHILS RELATIVE PERCENT 3 % (BEAKER) (test code = 432) BASOPHILS RELATIVE PERCENT 1 % (BEAKER) (test code = 437) NEUTROPHILS ABSOLUTE COUNT 6.20 K/ L 1.80-8.00 (BEAKER) (test code = 670) LYMPHOCYTES ABSOLUTE COUNT 1.90 K/ L 1.48-4.50 (BEAKER) (test code = 414) MONOCYTES ABSOLUTE COUNT (BEAKER) 0.60 K/ L 0.00-1.30 (test code = 415) EOSINOPHILS ABSOLUTE COUNT 0.30 K/ L 0.00-0.50 (BEAKER) (test code = 416) BASOPHILS ABSOLUTE COUNT (BEAKER) 0.10 K/ L 0.00-0.20 (test code = 417) POCT-GLUCOSE [id number] 19:59:00 Test Item Value Reference Range Interpretation Comments POC-GLUCOSE METER 198 mg/dL 70-110 H TESTED AT [address] ([facility]) (test code [facility] [place] = 1538) [id number] POCT-GLUCOSE [id number] 16:34:00 Test Item Value Reference Range Interpretation Comments POC-GLUCOSE METER 230 mg/dL 70-110 H TESTED AT [address] ([facility]) (test code [facility] [place] = 1538) [id number] POCT-GLUCOSE [id number] 13:02:00 Test Item Value Reference Range Interpretation Comments POC-GLUCOSE METER 273 mg/dL 70-110 H TESTED AT [address] ([facility]) (test code [facility] [place] = 1538) [address] B-TYPE NATRIURETIC FACTOR (BNP)2017-04-04 06:55:00 Test Item Value Reference Range Interpretation Comments B-TYPE NATRIURETIC PEPTIDE (BEAKER) 824 pg/mL 0-100 H (test code = 700) BASIC METABOLIC [id number] 06:47:00 Test Item Value Reference Range Interpretation Comments SODIUM (BEAKER) 141 meq/L 135-148 (test code = 381) POTASSIUM (BEAKER) 4.1 meq/L 3.6-5.5 (test code = 379) CHLORIDE (BEAKER) 109 meq/L 98-106 H (test code = 382) CO2 (BEAKER) (test 24 meq/L 20-29 code = 355) BLOOD UREA NITROGEN 26 mg/dL 10-26 (BEAKER) (test code = 354) CREATININE (BEAKER) 1.10 mg/dL 0.50-1.20 (test code = 358) GLUCOSE RANDOM 243 mg/dL 70-110 H (BEAKER) (test code = 652) CALCIUM (BEAKER) 8.2 mg/dL 8.5-10.5 L (test code = 697) EGFR (BEAKER) (test 73 mL/min/1.73 ESTIMA JOSÉ LUIS GFR IS code = 1092) sq m NOT ACCURATE CREATININE CLEARANCE IN PREDICTING GLOMERULAR FILTRATION RATE . ESTIMATED GFR I S NOT APPLICABLE FOR DIALYSIS PATIEN TS. [id number] 06:41:00 Test Item Value Reference Range Interpretation Comments MAGNESIUM (BEAKER) (test code = 2.2 mg/dL 1.5-3.0 627) CBC W/PLT COUNT & AUTO [id number] 06:32:00 Test Item Value Reference Range Interpretation Comments WHITE BLOOD CELL COUNT (BEAKER) 9.2 K/ L 4.0-10.0 (test code = 775) RED BLOOD CELL COUNT (BEAKER) 3.94 M/ L 4.20-5.80 L (test code = 761) HEMOGLOBIN (BEAKER) (test code = 12.1 GM/DL 13.0-16.8 L 410) HEMATOCRIT (BEAKER) (test code = 36.4 % 40.0-50.0 L 411) MEAN CORPUSCULAR VOLUME (BEAKER) 92.3 fL 82.0-98.0 (test code = 753) MEAN CORPUSCULAR HEMOGLOBIN 30.8 pg 27.0-33.0 (BEAKER) (test code = 751) MEAN CORPUSCULAR HEMOGLOBIN CONC 33.4 GM/DL 32.0-36.0 (BEAKER) (test code = 752) RED CELL DISTRIBUTION WIDTH 14.7 % 10.3-14.2 H (BEAKER) (test code = 412) PLATELET COUNT (BEAKER) (test 217 K/CU MM 150-430 code = 756) MEAN PLATELET VOLUME (BEAKER) 9.6 fL 6.5-10.5 (test code = 754) NUCLEATED RED BLOOD CELLS 0 /100 WBC 0-0 (BEAKER) (test code = 413) NEUTROPHILS RELATIVE PERCENT 69 % (BEAKER) (test code = 429) LYMPHOCYTES RELATIVE PERCENT 19 % (BEAKER) (test code = 430) MONOCYTES RELATIVE PERCENT 7 % (BEAKER) (test code = 431) EOSINOPHILS RELATIVE PERCENT 4 % (BEAKER) (test code = 432) BASOPHILS RELATIVE PERCENT 1 % (BEAKER) (test code = 437) NEUTROPHILS ABSOLUTE COUNT 6.40 K/ L 1.80-8.00 (BEAKER) (test code = 670) LYMPHOCYTES ABSOLUTE COUNT 1.80 K/ L 1.48-4.50 (BEAKER) (test code = 414) MONOCYTES ABSOLUTE COUNT (BEAKER) 0.70 K/ L 0.00-1.30 (test code = 415) EOSINOPHILS ABSOLUTE COUNT 0.30 K/ L 0.00-0.50 (BEAKER) (test code = 416) BASOPHILS ABSOLUTE COUNT (BEAKER) 0.10 K/ L 0.00-0.20 (test code = 417) B-TYPE NATRIURETIC FACTOR (BNP)2017-04-03 12:10:00 Test Item Value Reference Range Interpretation Comments B-TYPE NATRIURETIC PEPTIDE (BEAKER) 939 pg/mL 0-100 H (test code = 700) TROPONIN [id number] 12:05:00 Test Item Value Reference Range Interpretation Comments TROPONIN I (BEAKER) (test code = 0.13 ng/mL 0.00-0.15 397) Troponin I (TnI) levels must be interpreted in the context of the presenting symptoms and the clinical findings. Elevated TnI levels indicate myocardial damage, but are not specific for ischemic heart disease. Elevated TnI levels are seen in patients with other cardiac conditions (including myocarditis and congestive heart failure), and slight TnI elevations occur in patients with other conditions, including sepsis, renal failure, acidosis, acute neurological disease, and persistent tachyarrhythmia.RAD, CHEST, 2 [id number] 11:59:00 Reason for exam:->SOBFINAL REPORT History: Shortness of breath Comparison: 03/27/2017, 02/04/2017,12/01/2016, 01/14/2016 Findings: There is chronic scarring in the left perihilar region. There is chronic scarring with adjacent pleural thickening at the left lateral costophrenic sulcus. There is prominence of the pulmonary vascularity with hazy perihilar opacity which may reflect mild edema. Cardiac shadow normal in size. Left subclavian transvenous cardiac pacing hardware is present, with leads in the region of the right atrium and right ventricle. No pneumothorax. IMPRESSION: Question mild pulmonary edema. Signed: Malcolm Garcia MDReport Verified Date/Time: 04/03/2017 11:59:26 Reading Location: [address] Ortho Consult Reading Room BASIC METABOLIC [id number] 11:57:00 Test Item Value Reference Range Interpretation Comments SODIUM (BEAKER) 141 meq/L 135-148 (test code = 381) POTASSIUM (BEAKER) 4.8 meq/L 3.6-5.5 (test code = 379) CHLORIDE (BEAKER) 107 meq/L 98-106 H (test code = 382) CO2 (BEAKER) (test 25 meq/L 20-29 code = 355) BLOOD UREA NITROGEN 27 mg/dL 10-26 H (BEAKER) (test code = 354) CREATININE (BEAKER) 1.50 mg/dL 0.50-1.20 H (test code = 358) GLUCOSE RANDOM 331 mg/dL 70-110 H (BEAKER) (test code = 652) CALCIUM (BEAKER) 8.6 mg/dL 8.5-10.5 (test code = 697) EGFR (BEAKER) (test 51 mL/min/1.73 ESTIMA JOSÉ LUIS GFR IS code = 1092) sq m NOT ACCURATE CREATININE CLEARANCE IN PREDICTING GLOMERULAR FILTRATION RATE . ESTIMATED GFR I S NOT APPLICABLE FOR DIALYSIS PATIEN TS. CBC W/PLT COUNT & AUTO [id number] 11:42:00 Test Item Value Reference Range Interpretation Comments WHITE BLOOD CELL COUNT (BEAKER) 10.3 K/ L 4.0-10.0 H (test code = 775) RED BLOOD CELL COUNT (BEAKER) 4.16 M/ L 4.20-5.80 L (test code = 761) HEMOGLOBIN (BEAKER) (test code = 12.8 GM/DL 13.0-16.8 L 410) HEMATOCRIT (BEAKER) (test code = 38.6 % 40.0-50.0 L 411) MEAN CORPUSCULAR VOLUME (BEAKER) 92.7 fL 82.0-98.0 (test code = 753) MEAN CORPUSCULAR HEMOGLOBIN 30.8 pg 27.0-33.0 (BEAKER) (test code = 751) MEAN CORPUSCULAR HEMOGLOBIN CONC 33.2 GM/DL 32.0-36.0 (BEAKER) (test code = 752) RED CELL DISTRIBUTION WIDTH 14.8 % 10.3-14.2 H (BEAKER) (test code = 412) PLATELET COUNT (BEAKER) (test 243 K/CU MM 150-430 code = 756) MEAN PLATELET VOLUME (BEAKER) 10.1 fL 6.5-10.5 (test code = 754) NUCLEATED RED BLOOD CELLS 0 /100 WBC 0-0 (BEAKER) (test code = 413) NEUTROPHILS RELATIVE PERCENT 78 % (BEAKER) (test code = 429) LYMPHOCYTES RELATIVE PERCENT 13 % (BEAKER) (test code = 430) MONOCYTES RELATIVE PERCENT 6 % (BEAKER) (test code = 431) EOSINOPHILS RELATIVE PERCENT 3 % (BEAKER) (test code = 432) BASOPHILS RELATIVE PERCENT 1 % (BEAKER) (test code = 437) NEUTROPHILS ABSOLUTE COUNT 8.00 K/ L 1.80-8.00 (BEAKER) (test code = 670) LYMPHOCYTES ABSOLUTE COUNT 1.30 K/ L 1.48-4.50 L (BEAKER) (test code = 414) MONOCYTES ABSOLUTE COUNT (BEAKER) 0.60 K/ L 0.00-1.30 (test code = 415) EOSINOPHILS ABSOLUTE COUNT 0.30 K/ L 0.00-0.50 (BEAKER) (test code = 416) BASOPHILS ABSOLUTE COUNT (BEAKER) 0.10 K/ L 0.00-0.20 (test code = 417) RAD, CHEST, 1 VIEW, NON [id number] 11:12:00Reason for exam:->follow up FINAL REPORT Chest, 1 view Clinical history: follow up Comparison: 03/25/2017Discussion: Left-sided pacemaker in position without pneumothorax. Small left pleural effusion is seen with atelectasis. The cardiac silhouette is enlarged with mild perihilar edema. No acute osseous abnormality. Signed: Jamir Mai MDReport Verified Date/Time: 03/27/2017 11:12:12 Reading Location: [facility] [id number] Ortho Consult Reading Room TROPONIN [id number] 08:29:00 Test Item Value Reference Range Interpretation Comments TROPONIN I (BEAKER) (test code = 0.47 ng/mL 0.00-0.15 397) Troponin I (TnI) levels must be interpreted in the context of the presenting symptoms and the clinical findings. Elevated TnI levels indicate myocardial damage, but are not specific for ischemic heart disease. Elevated TnI levels are seen in patients with other cardiac conditions (including myocarditis and congestive heart failure), and slight TnI elevations occur in patients with other conditions, including sepsis, renal failure, acidosis, acute neurological disease, and persistent tachyarrhythmia.B-TYPE NATRIURETIC FACTOR (BNP) 2017-03-27 08:28:00 Test Item Value Reference Range Interpretation Comments B-TYPE NATRIURETIC PEPTIDE (BEAKER) 522 pg/mL 0-100 H (test code = 700) CREATINE KINASE (CK), TOTAL AND [id number] 08:27:00 Test Item Value Reference Range Interpretation Comments CREATINE KINASE TOTAL (BEAKER) 303 U/L 40-250 H (test code = 380) CREATINE KINASE-MB (BEAKER) (test 5.9 ng/mL 0.0-4.9 H code = 750) CREATINE KINASE-MB INDEX (BEAKER) 1.9 % (test code = 395) CK-MB Reference Range:<5 Normal5-10 Borderline>10 AbnormalBASIC METABOLIC [id number] 08:18:00 Test Item Value Reference Range Interpretation Comments SODIUM (BEAKER) 141 meq/L 135-148 (test code = 381) POTASSIUM (BEAKER) 4.9 meq/L 3.6-5.5 (test code = 379) CHLORIDE (BEAKER) 107 meq/L 98-106 H (test code = 382) CO2 (BEAKER) (test 26 meq/L 20-29 code = 355) BLOOD UREA NITROGEN 27 mg/dL 10-26 H (BEAKER) (test code = 354) CREATININE (BEAKER) 1.20 mg/dL 0.50-1.20 (test code = 358) GLUCOSE RANDOM 165 mg/dL 70-110 H (BEAKER) (test code = 652) CALCIUM (BEAKER) 9.0 mg/dL 8.5-10.5 (test code = 697) EGFR (BEAKER) (test 66 mL/min/1.73 ESTIMA JOSÉ LUIS GFR IS code = 1092) sq m NOT ACCURATE CREATININE CLEARANCE IN PREDICTING GLOMERULAR FILTRATION RATE . ESTIMATED GFR I S NOT APPLICABLE FOR DIALYSIS PATIEN TS. CBC W/PLT COUNT & AUTO [id number] 07:44:00 Test Item Value Reference Range Interpretation Comments WHITE BLOOD CELL COUNT (BEAKER) 9.5 K/ L 4.0-10.0 (test code = 775) RED BLOOD CELL COUNT (BEAKER) 4.27 M/ L 4.20-5.80 (test code = 761) HEMOGLOBIN (BEAKER) (test code = 12.9 GM/DL 13.0-16.8 L 410) HEMATOCRIT (BEAKER) (test code = 39.5 % 40.0-50.0 L 411) MEAN CORPUSCULAR VOLUME (BEAKER) 92.6 fL 82.0-98.0 (test code = 753) MEAN CORPUSCULAR HEMOGLOBIN 30.2 pg 27.0-33.0 (BEAKER) (test code = 751) MEAN CORPUSCULAR HEMOGLOBIN CONC 32.7 GM/DL 32.0-36.0 (BEAKER) (test code = 752) RED CELL DISTRIBUTION WIDTH 14.2 % 10.3-14.2 (BEAKER) (test code = 412) PLATELET COUNT (BEAKER) (test 304 K/CU MM 150-430 code = 756) MEAN PLATELET VOLUME (BEAKER) 9.1 fL 6.5-10.5 (test code = 754) NUCLEATED RED BLOOD CELLS 0 /100 WBC 0-0 (BEAKER) (test code = 413) NEUTROPHILS RELATIVE PERCENT 70 % (BEAKER) (test code = 429) LYMPHOCYTES RELATIVE PERCENT 19 % (BEAKER) (test code = 430) MONOCYTES RELATIVE PERCENT 7 % (BEAKER) (test code = 431) EOSINOPHILS RELATIVE PERCENT 3 % (BEAKER) (test code = 432) BASOPHILS RELATIVE PERCENT 0 % (BEAKER) (test code = 437) NEUTROPHILS ABSOLUTE COUNT 6.70 K/ L 1.80-8.00 (BEAKER) (test code = 670) LYMPHOCYTES ABSOLUTE COUNT 1.80 K/ L 1.48-4.50 (BEAKER) (test code = 414) MONOCYTES ABSOLUTE COUNT (BEAKER) 0.70 K/ L 0.00-1.30 (test code = 415) EOSINOPHILS ABSOLUTE COUNT 0.30 K/ L 0.00-0.50 (BEAKER) (test code = 416) BASOPHILS ABSOLUTE COUNT (BEAKER) 0.00 K/ L 0.00-0.20 (test code = 417) POCT-GLUCOSE [id number] 05:54:00 Test Item Value Reference Range Interpretation Comments POC-GLUCOSE METER 226 mg/dL 70-110 H TESTED AT [address] ([facility]) (test code [address] [facility] [place] = 1538) [id number] POCT-GLUCOSE [id number] 20:54:00 Test Item Value Reference Range Interpretation Comments POC-GLUCOSE METER 180 mg/dL 70-110 H TESTED AT [address] ([facility]) (test code [address] [facility] [place] = 1538) [id number] POCT-GLUCOSE [id number] 16:40:00 Test Item Value Reference Range Interpretation Comments POC-GLUCOSE METER 262 mg/dL 70-110 H TESTED AT [address] ([facility]) (test code [address] [facility] [place] = 1538) [id number] LIPID [id number] 15:41:00 Test Item Value Reference Range Interpretation Comments TRIGLYCERIDES ([facility]) (test code = 86 mg/dL 540) CHOLESTEROL ([facility]) (test code = 203 mg/dL 631) HDL CHOLESTEROL ([facility]) (test code 33 mg/dL = 976) LDL CHOLESTEROL CALCULATED ([facility]) 153 mg/dL (test code = 633) Triglyceride Reference Range: Low Risk <150 Borderline 150-199 High Risk 200-499 Very High Risk >=500Cholesterol Reference Range: Low Risk <200 Borderline 200-239 High Risk >240HDL Cholesterol Reference Range: Low Risk >=60 High Risk <40LDL Cholesterol Reference Range: Optimal <100 Near Optimal 100-129 Borderline 130-159 High 160-189 Very High >=190TSH/FREE T4 IF [id number] 15:27:00 Test Item Value Reference Range Interpretation Comments THYROID STIMULATING HORMONE 4.34 uIU/mL 0.35-5.50 (BEAKER) (test code = 772) TROPONIN [id number] 15:18:00 Test Item Value Reference Range Interpretation Comments TROPONIN I (BEAKER) (test code = 0.54 ng/mL 0.00-0.15 HH 397) Troponin I (TnI) levels must be interpreted in the context of the presenting symptoms and the clinical findings. Elevated TnI levels indicate myocardial damage, but are not specific for ischemic heart disease. Elevated TnI levels are seen in patients with other cardiac conditions (including myocarditis and congestive heart failure), and slight TnI elevations occur in patients with other conditions, including sepsis, renal failure, acidosis, acute neurological disease, and persistent tachyarrhythmia.CREATINE KINASE (CK), TOTAL AND MB 2017-03-26 15:12:00 Test Item Value Reference Range Interpretation Comments CREATINE KINASE TOTAL (BEAKER) 300 U/L 40-250 H (test code = 380) CREATINE KINASE-MB (BEAKER) (test 5.3 ng/mL 0.0-4.9 H code = 750) CREATINE KINASE-MB INDEX (BEAKER) 1.8 % (test code = 395) CK-MB Reference Range:<5 Normal5-10 Borderline>10 AbnormalB-TYPE NATRIURETIC FACTOR (BNP)2017-03-26 15:11:00 Test Item Value Reference Range Interpretation Comments B-TYPE NATRIURETIC PEPTIDE (BEAKER) 323 pg/mL 0-100 H (test code = 700) BASIC METABOLIC [id number] 15:03:00 Test Item Value Reference Range Interpretation Comments SODIUM (BEAKER) 141 meq/L 135-148 (test code = 381) POTASSIUM (BEAKER) 3.7 meq/L 3.6-5.5 (test code = 379) CHLORIDE (BEAKER) 104 meq/L 98-106 (test code = 382) CO2 (BEAKER) (test 28 meq/L code = 355) BLOOD UREA NITROGEN 26 mg/dL 10-26 (BEAKER) (test code = 354) CREATININE (BEAKER) 1.30 mg/dL 0.50-1.20 H (test code = 358) GLUCOSE RANDOM 203 mg/dL 70-110 H (BEAKER) (test code = 652) CALCIUM (BEAKER) 8.7 mg/dL 8.5-10.5 (test code = 697) EGFR (BEAKER) (test 60 mL/min/1.73 ESTIMA JOSÉ LUIS GFR IS code = 1092) sq m NOT ACCURATE CREATININE CLEARANCE IN PREDICTING GLOMERULAR FILTRATION RATE . ESTIMATED GFR I S NOT APPLICABLE FOR DIALYSIS PATIEN TS. HEMOGLOBIN [id number] 08:23:00 Test Item Value Reference Range Interpretation Comments HEMOGLOBIN A1C (BEAKER) (test code = 8.8 % 4.3-6.1 H 368) CBC W/PLT COUNT & AUTO [id number] 07:23:00 Test Item Value Reference Range Interpretation Comments WHITE BLOOD CELL COUNT (BEAKER) 9.1 K/ L 4.0-10.0 (test code = 775) RED BLOOD CELL COUNT (BEAKER) 3.88 M/ L 4.20-5.80 L (test code = 761) HEMOGLOBIN (BEAKER) (test code = 12.0 GM/DL 13.0-16.8 L 410) HEMATOCRIT (BEAKER) (test code = 35.8 % 40.0-50.0 L 411) MEAN CORPUSCULAR VOLUME (BEAKER) 92.4 fL 82.0-98.0 (test code = 753) MEAN CORPUSCULAR HEMOGLOBIN 30.9 pg 27.0-33.0 (BEAKER) (test code = 751) MEAN CORPUSCULAR HEMOGLOBIN CONC 33.5 GM/DL 32.0-36.0 (BEAKER) (test code = 752) RED CELL DISTRIBUTION WIDTH 14.2 % 10.3-14.2 (BEAKER) (test code = 412) PLATELET COUNT (BEAKER) (test 321 K/CU MM 150-430 code = 756) MEAN PLATELET VOLUME (BEAKER) 9.3 fL 6.5-10.5 (test code = 754) NUCLEATED RED BLOOD CELLS 0 /100 WBC 0-0 (BEAKER) (test code = 413) NEUTROPHILS RELATIVE PERCENT 66 % (BEAKER) (test code = 429) LYMPHOCYTES RELATIVE PERCENT 21 % (BEAKER) (test code = 430) MONOCYTES RELATIVE PERCENT 9 % (BEAKER) (test code = 431) EOSINOPHILS RELATIVE PERCENT 3 % (BEAKER) (test code = 432) BASOPHILS RELATIVE PERCENT 0 % (BEAKER) (test code = 437) NEUTROPHILS ABSOLUTE COUNT 6.00 K/ L 1.80-8.00 (BEAKER) (test code = 670) LYMPHOCYTES ABSOLUTE COUNT 1.90 K/ L 1.48-4.50 (BEAKER) (test code = 414) MONOCYTES ABSOLUTE COUNT (BEAKER) 0.80 K/ L 0.00-1.30 (test code = 415) EOSINOPHILS ABSOLUTE COUNT 0.30 K/ L 0.00-0.50 (BEAKER) (test code = 416) BASOPHILS ABSOLUTE COUNT (BEAKER) 0.00 K/ L 0.00-0.20 (test code = 417) POCT-GLUCOSE [id number] 06:53:00 Test Item Value Reference Range Interpretation Comments POC-GLUCOSE METER 176 mg/dL 70-110 H TESTED AT [address] ([facility]) (test code [address] [facility] [place] = 1538) [id number] TROPONIN [id number] 23:25:00 Test Item Value Reference Range Interpretation Comments TROPONIN I (AKER) (test code = 0.58 ng/mL 0.00-0.15 397) Troponin I (TnI) levels must be interpreted in the context of the presenting symptoms and the clinical findings. Elevated TnI levels indicate myocardial damage, but are not specific for ischemic heart disease. Elevated TnI levels are seen in patients with other cardiac conditions (including myocarditis and congestive heart failure), and slight TnI elevations occur in patients with other conditions, including sepsis, renal failure, acidosis, acute neurological disease, and persistent tachyarrhythmia.CREATINE KINASE (CK), TOTAL AND MB 2017-03-25 23:21:00 Test Item Value Reference Range Interpretation Comments CREATINE KINASE TOTAL (BEAKER) 294 U/L 40-250 H (test code = 380) CREATINE KINASE-MB (BEAKER) (test 5.1 ng/mL 0.0-4.9 H code = 750) CREATINE KINASE-MB INDEX (AKER) 1.7 % (test code = 395) CK-MB Reference Range:<5 Normal5-10 Borderline>10 AbnormalPOCT-GLUCOSE [id number] 20:54:00 Test Item Value Reference Range Interpretation Comments POC-GLUCOSE METER 157 mg/dL 70-110 H TESTED AT [address] ([facility]) (test code [address] [facility] [place] = 1538) [id number] TROPONIN [id number] 14:46:00 Test Item Value Reference Range Interpretation Comments TROPONIN I (CECILIO) (test code = 0.60 ng/mL 0.00-0.15 397) Troponin I (TnI) levels must be interpreted in the context of the presenting symptoms and the clinical findings. Elevated TnI levels indicate myocardial damage, but are not specific for ischemic heart disease. Elevated TnI levels are seen in patients with other cardiac conditions (including myocarditis and congestive heart failure), and slight TnI elevations occur in patients with other conditions, including sepsis, renal failure, acidosis, acute neurological disease, and persistent tachyarrhythmia.B-TYPE NATRIURETIC FACTOR (BNP) 2017-03-25 14:45:00 Test Item Value Reference Range Interpretation Comments B-TYPE NATRIURETIC PEPTIDE (CECILIO) 624 pg/mL 0-100 H (test code = 700) PROTHROMBIN [id number] 14:42:00 Test Item Value Reference Range Interpretation Comments PROTIME (CECILIO) (test code = 11.4 seconds 9.3-12.0 759) INR ([facility]) (test code = 370) 1.1 <=5.9 RECOMMENDED COUMADIN/WARFARIN INR THERAPY RANGESSTANDARD DOSE: 2.0 - 3.0 Includes: PROPHYLAXIS forvenous thrombosis, systemic embolization; TREATMENT for venous thrombosis and/or pulmonary embolus.HIGH RISK: Target INR is 2.5-3.5 for patients with mechanical heart valves.[id number] 14:42:00 Test Item Value Reference Range Interpretation Comments PARTIAL THROMBOPLASTIN TIME 27.0 seconds 23.0-35.0 (CECILIO) (test code = 760) CREATINE KINASE (CK), TOTAL AND [id number] 14:41:00 Test Item Value Reference Range Interpretation Comments CREATINE KINASE TOTAL (BEAKER) 328 U/L 40-250 H (test code = 380) CREATINE KINASE-MB (BEAKER) (test 5.9 ng/mL 0.0-4.9 H code = 750) CREATINE KINASE-MB INDEX ([employer]) 1.8 % (test code = 395) CK-MB Reference Range:<5 Normal5-10 Borderline>10 AbnormalCOMPREHENSIVE METABOLIC [id number] 14:34:00 Test Item Value Reference Range Interpretation Comments TOTAL PROTEIN 6.4 gm/dL 6.0-8.5 (BEAKER) (test code = 770) ALBUMIN (BEAKER) 3.1 g/dL 3.5-5.0 L (test code = 1145) ALKALINE PHOSPHATASE 64 U/L 30-115 (BEAKER) (test code = 346) BILIRUBIN TOTAL 0.7 mg/dL 0.1-1.2 (BEAKER) (test code = 377) SODIUM (BEAKER) (test 138 meq/L 135-148 code = 381) POTASSIUM (BEAKER) 3.9 meq/L 3.6-5.5 (test code = 379) CHLORIDE (BEAKER) 106 meq/L 98-106 (test code = 382) CO2 (BEAKER) (test 24 meq/L 20-29 code = 355) BLOOD UREA NITROGEN 26 mg/dL 10-26 (BEAKER) (test code = 354) CREATININE (BEAKER) 1.50 mg/dL 0.50-1.20 H (test code = 358) GLUCOSE RANDOM 253 mg/dL 70-110 H (BEAKER) (test code = 652) CALCIUM (BEAKER) 8.4 mg/dL 8.5-10.5 L (test code = 697) AST (SGOT) (BEAKER) 11 U/L 5-40 (test code = 353) ALT (SGPT) (BEAKER) 20 U/L 5-50 (test code = 347) EGFR (BEAKER) (test 51 mL/min/1.73 ESTIMA JOSÉ LUIS GFR IS code = 1092) sq m NOT ACCURATE CREATININE CLEARANCE IN PREDICTING GLOMERULAR FILTRATION RATE . ESTIMATED GFR I S NOT APPLICABLE FOR DIALYSIS PATIEN TS. CBC W/PLT COUNT & AUTO [id number] 14:04:00 Test Item Value Reference Range Interpretation Comments WHITE BLOOD CELL COUNT (BEAKER) 11.4 K/ L 4.0-10.0 H (test code = 775) RED BLOOD CELL COUNT (BEAKER) 4.01 M/ L 4.20-5.80 L (test code = 761) HEMOGLOBIN (BEAKER) (test code = 12.3 GM/DL 13.0-16.8 L 410) HEMATOCRIT (BEAKER) (test code = 37.1 % 40.0-50.0 L 411) MEAN CORPUSCULAR VOLUME (BEAKER) 92.5 fL 82.0-98.0 (test code = 753) MEAN CORPUSCULAR HEMOGLOBIN 30.7 pg 27.0-33.0 (BEAKER) (test code = 751) MEAN CORPUSCULAR HEMOGLOBIN CONC 33.2 GM/DL 32.0-36.0 (BEAKER) (test code = 752) RED CELL DISTRIBUTION WIDTH 13.8 % 10.3-14.2 (BEAKER) (test code = 412) PLATELET COUNT (BEAKER) (test 307 K/CU MM 150-430 code = 756) MEAN PLATELET VOLUME (BEAKER) 9.2 fL 6.5-10.5 (test code = 754) NUCLEATED RED BLOOD CELLS 0 /100 WBC 0-0 (BEAKER) (test code = 413) NEUTROPHILS RELATIVE PERCENT 74 % (BEAKER) (test code = 429) LYMPHOCYTES RELATIVE PERCENT 15 % (BEAKER) (test code = 430) MONOCYTES RELATIVE PERCENT 8 % (BEAKER) (test code = 431) EOSINOPHILS RELATIVE PERCENT 2 % (BEAKER) (test code = 432) BASOPHILS RELATIVE PERCENT 1 % (BEAKER) (test code = 437) NEUTROPHILS ABSOLUTE COUNT 8.50 K/ L 1.80-8.00 H (BEAKER) (test code = 670) LYMPHOCYTES ABSOLUTE COUNT 1.70 K/ L 1.48-4.50 (BEAKER) (test code = 414) MONOCYTES ABSOLUTE COUNT (BEAKER) 0.90 K/ L 0.00-1.30 (test code = 415) EOSINOPHILS ABSOLUTE COUNT 0.20 K/ L 0.00-0.50 (BEAKER) (test code = 416) BASOPHILS ABSOLUTE COUNT (BEAKER) 0.10 K/ L 0.00-0.20 (test code = 417) RAD, CHEST, 1 VIEW, NON [id number] 13:52:00Reason for exam:->SHORTNESS OF BREATHReason for exam:->EDEMAShould this be performed at the bedside?->Yes FINAL REPORT TECHNIQUE: Frontal chest radiograph dated 03/25/2017. CLINICAL HISTORY: Shortness of breath, edema COMPARISON STUDY: Chest radiograph dated 02/04/2017 FINDINGS: Left pacemaker is unchanged. There is pulmonary vascular congestion. Small left pleural effusion with compressive atelectasis. No pneumothorax. Cardiomediastinal silhouette is normal in size. No pulmonary edema. Degenerative changes are seen in the spine. No fracture. IMPRESSION: 1. Small left pleural effusion with compressive atelectasis 2. Pulmonary vascular congestion. Signed: Brian Kilgore MDReport Verified Date/Time: 03/25/2017 13:52:22 Reading Location: [facility] Radiology Reading Room POCT- GLUCOSE [id number] 12:04:00 Test Item Value Reference Range Interpretation Comments POC-GLUCOSE METER 171 mg/dL 70-110 H TESTED AT [facility]) (test code [address] [facility] [place] = 1538) [id number] BASIC METABOLIC [id number] 08:14:00 Test Item Value Reference Range Interpretation Comments SODIUM (BEAKER) 137 meq/L 135-148 (test code = 381) POTASSIUM (BEAKER) 3.8 meq/L 3.6-5.5 (test code = 379) CHLORIDE (BEAKER) 105 meq/L 98-106 (test code = 382) CO2 (BEAKER) (test 24 meq/L 20-29 code = 355) BLOOD UREA NITROGEN 19 mg/dL 10-26 (BEAKER) (test code = 354) CREATININE (BEAKER) 1.00 mg/dL 0.50-1.20 (test code = 358) GLUCOSE RANDOM 179 mg/dL 70-110 H (BEAKER) (test code = 652) CALCIUM (BEAKER) 8.7 mg/dL 8.5-10.5 (test code = 697) EGFR (BEAKER) (test 82 mL/min/1.73 ESTIMA JOSÉ LUIS GFR IS code = 1092) sq m NOT ACCURATE CREATININE CLEARANCE IN PREDICTING GLOMERULAR FILTRATION RATE . ESTIMATED GFR I S NOT APPLICABLE FOR DIALYSIS PATIEN TS. CBC W/PLT COUNT & AUTO [id number] 07:57:00 Test Item Value Reference Range Interpretation Comments WHITE BLOOD CELL COUNT (BEAKER) 10.3 K/ L 4.0-10.0 H (test code = 775) RED BLOOD CELL COUNT (BEAKER) 4.34 M/ L 4.20-5.80 (test code = 761) HEMOGLOBIN (BEAKER) (test code = 13.6 GM/DL 13.0-16.8 410) HEMATOCRIT (BEAKER) (test code = 40.7 % 40.0-50.0 411) MEAN CORPUSCULAR VOLUME (BEAKER) 93.8 fL 82.0-98.0 (test code = 753) MEAN CORPUSCULAR HEMOGLOBIN 31.3 pg 27.0-33.0 (BEAKER) (test code = 751) MEAN CORPUSCULAR HEMOGLOBIN CONC 33.3 GM/DL 32.0-36.0 (BEAKER) (test code = 752) RED CELL DISTRIBUTION WIDTH 13.4 % 10.3-14.2 (BEAKER) (test code = 412) PLATELET COUNT (BEAKER) (test 228 K/CU MM 150-430 code = 756) MEAN PLATELET VOLUME (BEAKER) 10.1 fL 6.5-10.5 (test code = 754) NUCLEATED RED BLOOD CELLS 0 /100 WBC 0-0 (BEAKER) (test code = 413) NEUTROPHILS RELATIVE PERCENT 65 % (BEAKER) (test code = 429) LYMPHOCYTES RELATIVE PERCENT 23 % (BEAKER) (test code = 430) MONOCYTES RELATIVE PERCENT 8 % (BEAKER) (test code = 431) EOSINOPHILS RELATIVE PERCENT 3 % (BEAKER) (test code = 432) BASOPHILS RELATIVE PERCENT 1 % (BEAKER) (test code = 437) NEUTROPHILS ABSOLUTE COUNT 6.70 K/ L 1.80-8.00 (BEAKER) (test code = 670) LYMPHOCYTES ABSOLUTE COUNT 2.40 K/ L 1.48-4.50 (BEAKER) (test code = 414) MONOCYTES ABSOLUTE COUNT (BEAKER) 0.80 K/ L 0.00-1.30 (test code = 415) EOSINOPHILS ABSOLUTE COUNT 0.30 K/ L 0.00-0.50 (BEAKER) (test code = 416) BASOPHILS ABSOLUTE COUNT (BEAKER) 0.10 K/ L 0.00-0.20 (test code = 417) POCT-GLUCOSE [id number] 07:11:00 Test Item Value Reference Range Interpretation Comments POC-GLUCOSE METER 164 mg/dL 70-110 H TESTED AT [address] [facility] (test code POINT [facility] [place] = 1538) [id number] POCT-GLUCOSE [id number] 22:24:00 Test Item Value Reference Range Interpretation Comments POC-GLUCOSE METER 222 mg/dL 70-110 H TESTED AT [facility] ([facility]) (test code POINT [facility] [place] = 1538) [id number] POCT-GLUCOSE [id number] 17:12:00 Test Item Value Reference Range Interpretation Comments POC-GLUCOSE METER 187 mg/dL 70-110 H TESTED AT [address] ([facility]) (test code POINT [facility] [place] = 1538) [id number] POCT-GLUCOSE [id number] 17:12:00 Test Item Value Reference Range Interpretation Comments POC-GLUCOSE METER 190 mg/dL 70-110 H TESTED AT [address] ([facility]) (test code [address] [facility] [place] = 1538) [id number] POCT-GLUCOSE [id number] 05:55:00 Test Item Value Reference Range Interpretation Comments POC-GLUCOSE METER 181 mg/dL 70-110 H TESTED AT [address] ([facility]) (test code [facility] [facility] [place] = 1538) [id number] POCT-GLUCOSE [id number] 21:23:00 Test Item Value Reference Range Interpretation Comments POC-GLUCOSE METER 305 mg/dL 70-110 H Baby teste d Mother ID ([facility]) (test code used/PHIL JOSÉ LUIS AT [place] [address] = 1538) [address] [facility] [id number] POCT-GLUCOSE [id number] 19:05:00 Test Item Value Reference Range Interpretation Comments POC-GLUCOSE METER 181 mg/dL 70-110 H TESTED AT [address] ([facility]) (test code [address]INT [facility] [place] = 1538) [id number] POCT-GLUCOSE [id number] 19:04:00 Test Item Value Reference Range Interpretation Comments POC-GLUCOSE METER 252 mg/dL 70-110 H TESTED AT [address] ([facility]) (test code POINT [facility] [place] = 1538) [id number] POCT-GLUCOSE [id number] 19:04:00 Test Item Value Reference Range Interpretation Comments POC-GLUCOSE METER 175 mg/dL 70-110 H TESTED AT [address] ([facility]) (test code POINT [address] [facility] = 1538) [id number] POCT-GLUCOSE [id number] 06:14:00 Test Item Value Reference Range Interpretation Comments POC-GLUCOSE METER 212 mg/dL 70-110 H TESTED AT [facility] [address] ([place]) (test code POINT [facility] [place] = 1538) [address] CREATINE KINASE (CK), TOTAL AND [id number] 03:39:00 Test Item Value Reference Range Interpretation Comments CREATINE KINASE TOTAL ([facility]) 174 U/L 40-250 (test code = 380) CREATINE KINASE-MB ([facility]) (test 4.7 ng/mL 0.0-4.9 code = 750) CREATINE KINASE-MB INDEX ([facility]) 2.7 % (test code = 395) CK-MB Reference Range:<5 Normal5-10 Borderline>10 AbnormalTROPONIN I 2017-02-05 03:39:00 Test Item Value Reference Range Interpretation Comments TROPONIN I ([facility]) (test code = 0.07 ng/mL 0.00-0.15 397) Troponin I (TnI) levels must be interpreted in the context of the presenting symptoms and the clinical findings. Elevated TnI levels indicate myocardial damage, but are not specific for ischemic heart disease. Elevated TnI levels are seen in patients with other cardiac conditions (including myocarditis and congestive heart failure), and slight TnI elevations occur in patients with other conditions, including sepsis, renal failure, acidosis, acute neurological disease, and persistent tachyarrhythmia.LIPID [id number] 03:33:00 Test Item Value Reference Range Interpretation Comments TRIGLYCERIDES (AKER) (test code = 164 mg/dL 540) CHOLESTEROL (AKER) (test code = 217 mg/dL 631) HDL CHOLESTEROL (AKER) (test code 28 mg/dL = 976) LDL CHOLESTEROL CALCULATED ([facility]) 156 mg/dL (test code = 633) Triglyceride Reference Range: Low Risk <150 Borderline 150-199 High Risk 200-499 Very High Risk >=500Cholesterol Reference Range: Low Risk <200 Borderline 200-239 High Risk >240HDL Cholesterol Reference Range: Low Risk >=60 High Risk <40LDL Cholesterol Reference Range: Optimal <100 Near Optimal 100-129 Borderline 130-159 High 160-189 Very High >=190BASIC METABOLIC [id number] 03:31:00 Test Item Value Reference Range Interpretation Comments SODIUM (BEAKER) 137 meq/L 135-148 (test code = 381) POTASSIUM (BEAKER) 4.0 meq/L 3.6-5.5 (test code = 379) CHLORIDE (BEAKER) 106 meq/L 98-106 (test code = 382) CO2 (BEAKER) (test 25 meq/L 20-29 code = 355) BLOOD UREA NITROGEN 17 mg/dL 10-26 (BEAKER) (test code = 354) CREATININE (BEAKER) 1.00 mg/dL 0.50-1.20 (test code = 358) GLUCOSE RANDOM 273 mg/dL 70-110 H (BEAKER) (test code = 652) CALCIUM (BEAKER) 8.7 mg/dL 8.5-10.5 (test code = 697) EGFR (BEAKER) (test 82 mL/min/1.73 ESTIMA JOSÉ LUIS GFR IS code = 1092) sq m NOT ACCURATE CREATININE CLEARANCE IN PREDICTING GLOMERULAR FILTRATION RATE . ESTIMATED GFR I S NOT APPLICABLE FOR DIALYSIS PATIEN TS. HEMOGLOBIN [id number] 03:30:00 Test Item Value Reference Range Interpretation Comments HEMOGLOBIN A1C (BEAKER) (test code = 9.7 % 4.3-6.1 H 368) CBC W/PLT COUNT & AUTO [id number] 03:18:00 Test Item Value Reference Range Interpretation Comments WHITE BLOOD CELL COUNT (BEAKER) 10.1 K/ L 4.0-10.0 H (test code = 775) RED BLOOD CELL COUNT (BEAKER) 4.74 M/ L 4.20-5.80 (test code = 761) HEMOGLOBIN (BEAKER) (test code = 14.6 GM/DL 13.0-16.8 410) HEMATOCRIT (BEAKER) (test code = 43.8 % 40.0-50.0 411) MEAN CORPUSCULAR VOLUME (BEAKER) 92.4 fL 82.0-98.0 (test code = 753) MEAN CORPUSCULAR HEMOGLOBIN 30.8 pg 27.0-33.0 (BEAKER) (test code = 751) MEAN CORPUSCULAR HEMOGLOBIN CONC 33.4 GM/DL 32.0-36.0 (BEAKER) (test code = 752) RED CELL DISTRIBUTION WIDTH 13.5 % 10.3-14.2 (BEAKER) (test code = 412) PLATELET COUNT (BEAKER) (test 245 K/CU MM 150-430 code = 756) MEAN PLATELET VOLUME (BEAKER) 9.5 fL 6.5-10.5 (test code = 754) NUCLEATED RED BLOOD CELLS 0 /100 WBC 0-0 (BEAKER) (test code = 413) NEUTROPHILS RELATIVE PERCENT 67 % (BEAKER) (test code = 429) LYMPHOCYTES RELATIVE PERCENT 23 % (BEAKER) (test code = 430) MONOCYTES RELATIVE PERCENT 7 % (BEAKER) (test code = 431) EOSINOPHILS RELATIVE PERCENT 3 % (BEAKER) (test code = 432) BASOPHILS RELATIVE PERCENT 0 % (BEAKER) (test code = 437) NEUTROPHILS ABSOLUTE COUNT 6.70 K/ L 1.80-8.00 (BEAKER) (test code = 670) LYMPHOCYTES ABSOLUTE COUNT 2.40 K/ L 1.48-4.50 (BEAKER) (test code = 414) MONOCYTES ABSOLUTE COUNT (BEAKER) 0.70 K/ L 0.00-1.30 (test code = 415) EOSINOPHILS ABSOLUTE COUNT 0.30 K/ L 0.00-0.50 (BEAKER) (test code = 416) BASOPHILS ABSOLUTE COUNT (BEAKER) 0.00 K/ L 0.00-0.20 (test code = 417) POCT-GLUCOSE [id number] 21:13:00 Test Item Value Reference Range Interpretation Comments POC-GLUCOSE METER 285 mg/dL 70-110 H TESTED AT [address] ([facility]) (test code POINT [facility] [place] = 1538) [id number] POCT-GLUCOSE [id number] 21:13:00 Test Item Value Reference Range Interpretation Comments POC-GLUCOSE METER 288 mg/dL 70-110 H TESTED AT [address] ([facility]) (test code POINT [facility] [place] = 1538) [id number] CREATINE KINASE (CK), TOTAL AND [id number] 16:27:00 Test Item Value Reference Range Interpretation Comments CREATINE KINASE TOTAL (BEAKER) 202 U/L 40-250 (test code = 380) CREATINE KINASE-MB (BEAKER) (test 7.3 ng/mL 0.0-4.9 H code = 750) CREATINE KINASE-MB INDEX ([facility]) 3.6 % (test code = 395) CK-MB Reference Range:<5 Normal5-10 Borderline>10 AbnormalTROPONIN I 2017-02-04 16:26:00 Test Item Value Reference Range Interpretation Comments TROPONIN I ([place]) (test code = 0.05 ng/mL 0.00-0.15 397) Troponin I (TnI) levels must be interpreted in the context of the presenting symptoms and the clinical findings. Elevated TnI levels indicate myocardial damage, but are not specific for ischemic heart disease. Elevated TnI levels are seen in patients with other cardiac conditions (including myocarditis and congestive heart failure), and slight TnI elevations occur in patients with other conditions, including sepsis, renal failure, acidosis, acute neurological disease, and persistent tachyarrhythmia.RAD, CHEST, 1 VIEW, NON [id number] 09:17:00Reason for exam:->chest painFINAL REPORT Chest one view. Clinical history: chest pain Comparison: December 01, 2016 Discussion: A frontal chest is provided. Cardiac silhouette is mildly enlarged, as before. There is a left-sided dual-lead pacemaker in stable position. There is mild vascular congestion. Nodiscrete consolidation is identified. There is persistent blunting of the left costophrenic angle and there is mild left basilar atelectasis. No pneumothorax. Osseous structures are intact. Signed: Lacie Gonzales Verified Date/Time: 02/04/2017 09:17:01 Reading Location: [facility] Radiology Reading Room TROPONILive [id number] 09:14:00 Test Item Value Reference Range Interpretation Comments TROPONIN I ([facility]) (test code = 0.03 ng/mL 0.00-0.15 397) Troponin I (TnI) levels must be interpreted in the context of the presenting symptoms and the clinical findings. Elevated TnI levels indicate myocardial damage, but are not specific for ischemic heart disease. Elevated TnI levels are seen in patients with other cardiac conditions (including myocarditis and congestive heart failure), and slight TnI elevations occur in patients with other conditions, including sepsis, renal failure, acidosis, acute neurological disease, and persistent tachyarrhythmia.B-TYPE NATRIURETIC FACTOR (BNP) 2017-02-04 09:13:00 Test Item Value Reference Range Interpretation Comments B-TYPE NATRIURETIC PEPTIDE (BEAKER) 594 pg/mL 0-100 H (test code = 700) CREATINE KINASE (CK), TOTAL AND [id number] 09:13:00 Test Item Value Reference Range Interpretation Comments CREATINE KINASE TOTAL (BEAKER) 235 U/L 40-250 (test code = 380) CREATINE KINASE-MB (BEAKER) (test 6.0 ng/mL 0.0-4.9 H code = 750) CREATINE KINASE-MB INDEX (BEAKER) 2.6 % (test code = 395) CK-MB Reference Range:<5 Normal5-10 Borderline>10 AbnormalBASIC METABOLIC [id number] 09:05:00 Test Item Value Reference Range Interpretation Comments SODIUM (BEAKER) 138 meq/L 135-148 (test code = 381) POTASSIUM (BEAKER) 4.3 meq/L 3.6-5.5 (test code = 379) CHLORIDE (BEAKER) 104 meq/L 98-106 (test code = 382) CO2 (BEAKER) (test 26 meq/L 20-29 code = 355) BLOOD UREA NITROGEN 20 mg/dL 10-26 (BEAKER) (test code = 354) CREATININE (BEAKER) 1.20 mg/dL 0.50-1.20 (test code = 358) GLUCOSE RANDOM 361 mg/dL 70-110 H (BEAKER) (test code = 652) CALCIUM (BEAKER) 8.9 mg/dL 8.5-10.5 (test code = 697) EGFR (BEAKER) (test 66 mL/min/1.73 ESTIMA JOSÉ LUIS GFR IS code = 1092) sq m NOT ACCURATE CREATININE CLEARANCE IN PREDICTING GLOMERULAR FILTRATION RATE . ESTIMATED GFR I S NOT APPLICABLE FOR DIALYSIS PATIEN TS. [id number] 09:03:00 Test Item Value Reference Range Interpretation Comments PROTIME (BEAKER) (test code = 10.3 seconds 9.3-12.0 759) INR (BEAKER) (test code = 370) 1.0 <=5.9 PARTIAL THROMBOPLASTIN TIME 24.3 seconds 23.0-35.0 (BEAKER) (test code = 760) RECOMMENDED COUMADIN/WARFARIN INR THERAPY RANGESSTANDARD DOSE: 2.0 - 3.0 Includes: PROPHYLAXIS forvenous thrombosis, systemic embolization; TREATMENT for venous thrombosis and/or pulmonary embolus.HIGH RISK: Target INR is 2.5-3.5 for patients with mechanical heart valves.[id number] 09:00:00 Test Item Value Reference Range Interpretation Comments MAGNESIUM (BEAKER) (test code = 2.0 mg/dL 1.5-3.0 627) CBC W/PLT COUNT & AUTO [id number] 08:50:00 Test Item Value Reference Range Interpretation Comments WHITE BLOOD CELL COUNT (BEAKER) 9.8 K/ L 4.0-10.0 (test code = 775) RED BLOOD CELL COUNT (BEAKER) 4.98 M/ L 4.20-5.80 (test code = 761) HEMOGLOBIN (BEAKER) (test code = 15.5 GM/DL 13.0-16.8 410) HEMATOCRIT (BEAKER) (test code = 46.2 % 40.0-50.0 411) MEAN CORPUSCULAR VOLUME (BEAKER) 92.8 fL 82.0-98.0 (test code = 753) MEAN CORPUSCULAR HEMOGLOBIN 31.1 pg 27.0-33.0 (BEAKER) (test code = 751) MEAN CORPUSCULAR HEMOGLOBIN CONC 33.5 GM/DL 32.0-36.0 (BEAKER) (test code = 752) RED CELL DISTRIBUTION WIDTH 13.7 % 10.3-14.2 (BEAKER) (test code = 412) PLATELET COUNT (BEAKER) (test 237 K/CU MM 150-430 code = 756) MEAN PLATELET VOLUME (BEAKER) 9.7 fL 6.5-10.5 (test code = 754) NUCLEATED RED BLOOD CELLS 0 /100 WBC 0-0 (BEAKER) (test code = 413) NEUTROPHILS RELATIVE PERCENT 69 % (BEAKER) (test code = 429) LYMPHOCYTES RELATIVE PERCENT 21 % (BEAKER) (test code = 430) MONOCYTES RELATIVE PERCENT 6 % (BEAKER) (test code = 431) EOSINOPHILS RELATIVE PERCENT 3 % (BEAKER) (test code = 432) BASOPHILS RELATIVE PERCENT 1 % (BEAKER) (test code = 437) NEUTROPHILS ABSOLUTE COUNT 6.80 K/ L 1.80-8.00 (BEAKER) (test code = 670) LYMPHOCYTES ABSOLUTE COUNT 2.10 K/ L 1.48-4.50 (BEAKER) (test code = 414) MONOCYTES ABSOLUTE COUNT (BEAKER) 0.60 K/ L 0.00-1.30 (test code = 415) EOSINOPHILS ABSOLUTE COUNT 0.30 K/ L 0.00-0.50 (BEAKER) (test code = 416) BASOPHILS ABSOLUTE COUNT (BEAKER) 0.10 K/ L 0.00-0.20 (test code = 417) B-TYPE NATRIURETIC FACTOR (BNP)2016-12-01 12:28:00 Test Item Value Reference Range Interpretation Comments B-TYPE NATRIURETIC PEPTIDE (BEAKER) 383 pg/mL 0-100 H (test code = 700) CREATINE KINASE (CK), TOTAL AND [id number] 11:53:00 Test Item Value Reference Range Interpretation Comments CREATINE KINASE TOTAL (BEAKER) 228 U/L 40-250 (test code = 380) CREATINE KINASE-MB (BEAKER) (test 4.8 ng/mL 0.0-4.9 code = 750) CREATINE KINASE-MB INDEX (BEAKER) 2.1 % (test code = 395) CK-MB Reference Range:<5 Normal5-10 Borderline>10 AbnormalBASIC METABOLIC [id number] 11:52:00 Test Item Value Reference Range Interpretation Comments SODIUM (BEAKER) 140 meq/L 135-148 (test code = 381) POTASSIUM (BEAKER) 4.4 meq/L 3.6-5.5 (test code = 379) CHLORIDE (BEAKER) 109 meq/L 98-106 H (test code = 382) CO2 (BEAKER) (test 22 meq/L 20-29 code = 355) BLOOD UREA NITROGEN 15 mg/dL 10-26 (BEAKER) (test code = 354) CREATININE (BEAKER) 0.90 mg/dL 0.50-1.20 (test code = 358) GLUCOSE RANDOM 285 mg/dL 70-110 H (BEAKER) (test code = 652) CALCIUM (BEAKER) 7.8 mg/dL 8.5-10.5 L (test code = 697) EGFR (BEAKER) (test 93 mL/min/1.73 ESTIMA JOSÉ LUIS GFR IS code = 1092) sq m NOT ACCURATE CREATININE CLEARANCE IN PREDICTING GLOMERULAR FILTRATION RATE . ESTIMATED GFR I S NOT APPLICABLE FOR DIALYSIS PATIEN TS. TROPONIN [id number] 11:40:00 Test Item Value Reference Range Interpretation Comments TROPONIN I (BEAKER) (test code = 0.65 ng/mL 0.00-0.15 HH 397) Troponin I (TnI) levels must be interpreted in the context of the presenting symptoms and the clinical findings. Elevated TnI levels indicate myocardial damage, but are not specific for ischemic heart disease. Elevated TnI levels are seen in patients with other cardiac conditions (including myocarditis and congestive heart failure), and slight TnI elevations occur in patients with other conditions, including sepsis, renal failure, acidosis, acute neurological disease, and persistent tachyarrhythmia.PROTHROMBIN [id number] 10:16:00 Test Item Value Reference Range Interpretation Comments PROTIME (BEAKER) (test code = 10.9 seconds 9.3-12.0 759) INR (BEAKER) (test code = 370) 1.0 <=5.9 RECOMMENDED COUMADIN/WARFARIN INR THERAPY RANGESSTANDARD DOSE: 2.0 - 3.0 Includes: PROPHYLAXIS forvenous thrombosis, systemic embolization; TREATMENT for venous thrombosis and/or pulmonary embolus.HIGH RISK: Target INR is 2.5-3.5 for patients with mechanical heart valves.CBC W/PLT COUNT & AUTO DIFFERENTIAL 2016-12-01 10:06:00 Test Item Value Reference Range Interpretation Comments WHITE BLOOD CELL COUNT (BEAKER) 13.9 K/ L 4.0-10.0 H (test code = 775) RED BLOOD CELL COUNT (BEAKER) 4.59 M/ L 4.20-5.80 (test code = 761) HEMOGLOBIN (BEAKER) (test code = 14.3 GM/DL 13.0-16.8 410) HEMATOCRIT (BEAKER) (test code = 43.5 % 40.0-50.0 411) MEAN CORPUSCULAR VOLUME (BEAKER) 94.8 fL 82.0-98.0 (test code = 753) MEAN CORPUSCULAR HEMOGLOBIN 31.2 pg 27.0-33.0 (BEAKER) (test code = 751) MEAN CORPUSCULAR HEMOGLOBIN CONC 32.9 GM/DL 32.0-36.0 (BEAKER) (test code = 752) RED CELL DISTRIBUTION WIDTH 13.2 % 10.3-14.2 (BEAKER) (test code = 412) PLATELET COUNT (BEAKER) (test 262 K/CU MM 150-430 code = 756) MEAN PLATELET VOLUME (BEAKER) 10.2 fL 6.5-10.5 (test code = 754) NUCLEATED RED BLOOD CELLS 0 /100 WBC 0-0 (BEAKER) (test code = 413) NEUTROPHILS RELATIVE PERCENT 82 % (BEAKER) (test code = 429) LYMPHOCYTES RELATIVE PERCENT 10 % (BEAKER) (test code = 430) MONOCYTES RELATIVE PERCENT 6 % (BEAKER) (test code = 431) EOSINOPHILS RELATIVE PERCENT 2 % (BEAKER) (test code = 432) BASOPHILS RELATIVE PERCENT 0 % (BEAKER) (test code = 437) NEUTROPHILS ABSOLUTE COUNT 11.40 K/ L 1.80-8.00 H (BEAKER) (test code = 670) LYMPHOCYTES ABSOLUTE COUNT 1.40 K/ L 1.48-4.50 L (BEAKER) (test code = 414) MONOCYTES ABSOLUTE COUNT (BEAKER) 0.90 K/ L 0.00-1.30 (test code = 415) EOSINOPHILS ABSOLUTE COUNT 0.20 K/ L 0.00-0.50 (BEAKER) (test code = 416) BASOPHILS ABSOLUTE COUNT (BEAKER) 0.00 K/ L 0.00-0.20 (test code = 417) RAD, CHEST, 1 VIEW, NON [id number] 09:42:00Reason for exam:->SHORTNESS OF BREATHOn \\T\\ off shortness of breath since Wednesday.SOB exaerbated by walkingShould this be performed at the bedside?->YesFINAL REPORT Comparison: 11/01/2016 TECHNIQUE: Single view of the chest FINDINGS: Increased interstitial markings bilaterally suggest mild vascular congestion. Small left pleural effusion with adjacent airspace disease identified. Lungs otherwise grossly clear. No pneumothorax. Cardiac silhouette is prominent. Left- sided pacing device noted. Signed: Gab Bonilla MDReport Verified Date/Time: 12/01/2016 09:42:01 Reading Location: [facility] Radiology Reading Room POCT-GLUCOSE [id number] 18:07:00 Test Item Value Reference Range Interpretation Comments POC-GLUCOSE METER 159 mg/dL 70-110 H TESTED AT [address] ([facility]) (test code [address] [facility] [place] = 1538) [id number] POCT-GLUCOSE [id number] 13:56:00 Test Item Value Reference Range Interpretation Comments POC-GLUCOSE METER 218 mg/dL 70-110 H TESTED AT [address] ([facility]) (test code [address] [facility] [place] = 1538) [id number] POCT-GLUCOSE [id number] 06:26:00 Test Item Value Reference Range Interpretation Comments POC-GLUCOSE METER 118 mg/dL 70-110 H TESTED AT [address] ([facility]) (test code [address] [facility] [place] = 1538) [id number] HEMOGLOBIN [id number] 02:55:00 Test Item Value Reference Range Interpretation Comments HEMOGLOBIN A1C ([facility]) (test code = 9.3 % 4.3-6.1 H 368) TROPONIN [id number] 02:45:00 Test Item Value Reference Range Interpretation Comments TROPONIN I ([facility]) (test code = 0.04 ng/mL 0.00-0.15 397) Troponin I (TnI) levels must be interpreted in the context of the presenting symptoms and the clinical findings. Elevated TnI levels indicate myocardial damage, but are not specific for ischemic heart disease. Elevated TnI levels are seen in patients with other cardiac conditions (including myocarditis and congestive heart failure), and slight TnI elevations occur in patients with other conditions, including sepsis, renal failure, acidosis, acute neurological disease, and persistent tachyarrhythmia.CREATINE KINASE (CK), TOTAL AND MB 2016-11-02 02:44:00 Test Item Value Reference Range Interpretation Comments CREATINE KINASE TOTAL ([facility]) 253 U/L 40-250 H (test code = 380) CREATINE KINASE-MB ([facility]) (test 4.2 ng/mL 0.0-4.9 code = 750) CREATINE KINASE-MB INDEX ([facility]) 1.7 % (test code = 395) CK-MB Reference Range:<5 Normal5-10 Borderline>10 AbnormalLIPID PANEL 2016-11-02 02:41:00 Test Item Value Reference Range Interpretation Comments TRIGLYCERIDES (BEAKER) (test code = 194 mg/dL 540) CHOLESTEROL (BEAKER) (test code = 242 mg/dL 631) HDL CHOLESTEROL (BEAKER) (test code 27 mg/dL = 976) LDL CHOLESTEROL CALCULATED (BEAKER) 176 mg/dL (test code = 633) Triglyceride Reference Range: Low Risk <150 Borderline 150-199 High Risk 200-499 Very High Risk >=500Cholesterol Reference Range: Low Risk <200 Borderline 200-239 High Risk >240HDL Cholesterol Reference Range: Low Risk >=60 High Risk <40LDL Cholesterol Reference Range: Optimal <100 Near Optimal 100-129 Borderline 130-159 High 160-189 Very High >=190BASIC METABOLIC [id number] 02:38:00 Test Item Value Reference Range Interpretation Comments SODIUM (BEAKER) 139 meq/L 135-148 (test code = 381) POTASSIUM (BEAKER) 3.9 meq/L 3.6-5.5 (test code = 379) CHLORIDE (BEAKER) 108 meq/L 98-106 H (test code = 382) CO2 (BEAKER) (test 24 meq/L 20-29 code = 355) BLOOD UREA NITROGEN 13 mg/dL 10-26 (BEAKER) (test code = 354) CREATININE (BEAKER) 0.80 mg/dL 0.50-1.20 (test code = 358) GLUCOSE RANDOM 186 mg/dL 70-110 H (BEAKER) (test code = 652) CALCIUM (BEAKER) 7.9 mg/dL 8.5-10.5 L (test code = 697) EGFR (BEAKER) (test 106 mL/min/1.73 ESTIM ATED GFR IS code = 1092) sq m NOT ACCURATE CREATININE CLEARANCE IN PREDICTING GLOMERULAR FILTRATION RATE . ESTIMATED GFR I S NOT APPLICABLE FOR DIALYSIS PATIEN TS. CBC W/PLT COUNT & AUTO [id number] 02:37:00 Test Item Value Reference Range Interpretation Comments WHITE BLOOD CELL COUNT (BEAKER) 10.5 K/ L 4.0-10.0 H (test code = 775) RED BLOOD CELL COUNT (BEAKER) 4.47 M/ L 4.20-5.80 (test code = 761) HEMOGLOBIN (BEAKER) (test code = 13.8 GM/DL 13.0-16.8 410) HEMATOCRIT (BEAKER) (test code = 41.8 % 40.0-50.0 411) MEAN CORPUSCULAR VOLUME (BEAKER) 93.4 fL 82.0-98.0 (test code = 753) MEAN CORPUSCULAR HEMOGLOBIN 30.9 pg 27.0-33.0 (BEAKER) (test code = 751) MEAN CORPUSCULAR HEMOGLOBIN CONC 33.1 GM/DL 32.0-36.0 (BEAKER) (test code = 752) RED CELL DISTRIBUTION WIDTH 13.2 % 10.3-14.2 (BEAKER) (test code = 412) PLATELET COUNT (BEAKER) (test 224 K/CU MM 150-430 code = 756) MEAN PLATELET VOLUME (BEAKER) 9.7 fL 6.5-10.5 (test code = 754) NUCLEATED RED BLOOD CELLS 0 /100 WBC 0-0 (BEAKER) (test code = 413) NEUTROPHILS RELATIVE PERCENT 65 % (BEAKER) (test code = 429) LYMPHOCYTES RELATIVE PERCENT 25 % (BEAKER) (test code = 430) MONOCYTES RELATIVE PERCENT 6 % (BEAKER) (test code = 431) EOSINOPHILS RELATIVE PERCENT 4 % (BEAKER) (test code = 432) BASOPHILS RELATIVE PERCENT 0 % (BEAKER) (test code = 437) NEUTROPHILS ABSOLUTE COUNT 6.80 K/ L 1.80-8.00 (BEAKER) (test code = 670) LYMPHOCYTES ABSOLUTE COUNT 2.60 K/ L 1.48-4.50 (BEAKER) (test code = 414) MONOCYTES ABSOLUTE COUNT (BEAKER) 0.60 K/ L 0.00-1.30 (test code = 415) EOSINOPHILS ABSOLUTE COUNT 0.40 K/ L 0.00-0.50 (BEAKER) (test code = 416) BASOPHILS ABSOLUTE COUNT (BEAKER) 0.00 K/ L 0.00-0.20 (test code = 417) POCT-GLUCOSE [id number] 21:41:00 Test Item Value Reference Range Interpretation Comments POC-GLUCOSE METER 222 mg/dL 70-110 H TESTED AT [address] ([facility]) (test code [facility] [place] = 1538) [id number] POCT-GLUCOSE [id number] 17:42:00 Test Item Value Reference Range Interpretation Comments POC-GLUCOSE METER 187 mg/dL 70-110 H TESTED AT [address]) (test code [facility] = 1538) [id number] TROPONIN [id number] 17:08:00 Test Item Value Reference Range Interpretation Comments TROPONIN I (BEAKER) (test code = 0.04 ng/mL 0.00-0.15 397) Troponin I (TnI) levels must be interpreted in the context of the presenting symptoms and the clinical findings. Elevated TnI levels indicate myocardial damage, but are not specific for ischemic heart disease. Elevated TnI levels are seen in patients with other cardiac conditions (including myocarditis and congestive heart failure), and slight TnI elevations occur in patients with other conditions, including sepsis, renal failure, acidosis, acute neurological disease, and persistent tachyarrhythmia.CREATINE KINASE (CK), TOTAL AND MB 2016-11-01 17:07:00 Test Item Value Reference Range Interpretation Comments CREATINE KINASE TOTAL (BEAKER) 310 U/L 40-250 H (test code = 380) CREATINE KINASE-MB (BEAKER) (test 4.8 ng/mL 0.0-4.9 code = 750) CREATINE KINASE-MB INDEX (AKER) 1.5 % (test code = 395) CK-MB Reference Range:<5 Normal5-10 Borderline>10 AbnormalPOCT-GLUCOSE [id number] 12:19:00 Test Item Value Reference Range Interpretation Comments POC-GLUCOSE METER 284 mg/dL 70-110 H TESTED AT [address] ([facility]) (test code [facility] = 1538) [address] URINALYSIS W/ REFLEX URINE [id number] 08:37:00 Test Item Value Reference Range Interpretation Comments COLOR (BEAKER) (test code = Yellow 470) CLARITY (BEAKER) (test code = Clear 469) SPECIFIC GRAVITY UA (BEAKER) 1.015 1.001-1.035 (test code = 468) PH UA (BEAKER) (test code = 5.5 5.0-8.0 467) PROTEIN UA (BEAKER) (test code 100 mg/dL Negative A = 464) GLUCOSE UA (BEAKER) (test code >=1000 mg/dL Negative A = 365) KETONES UA (BEAKER) (test code Negative Negative = 371) BILIRUBIN UA (BEAKER) (test Negative Negative code = 462) BLOOD UA (BEAKER) (test code = Small Negative A 461) NITRITE UA (BEAKER) (test code Negative Negative = 465) LEUKOCYTE ESTERASE UA (BEAKER) Negative Negative (test code = 466) UROBILINOGEN UA (BEAKER) (test 0.2 mg/dL 0.2-1.0 code = 463) BACTERIA (BEAKER) (test code = None Seen 517) RBC UA-MANUAL (BEAKER) (test <5 /HPF code = 1659) WBC UA-MANUAL (BEAKER) (test <5 /HPF code = 1661) SQUAMOUS EPITHELIAL MANUAL None Seen /HPF (BEAKER) (test code = 1663) SOURCE(BEAKER) (test code = 2795) B-TYPE NATRIURETIC FACTOR (BNP)2016-11-01 06:46:00 Test Item Value Reference Range Interpretation Comments B-TYPE NATRIURETIC PEPTIDE (BEAKER) 130 pg/mL 0-100 H (test code = 700) CALCIUM, [id number] 06:41:00 Test Item Value Reference Range Interpretation Comments CALCIUM IONIZED (BEAKER) (test 1.14 mmol/L 1.12-1.27 code = 698) PH, BLOOD (BEAKER) (test code = 7.43 1810) CREATINE KINASE (CK), TOTAL AND [id number] 06:14:00 Test Item Value Reference Range Interpretation Comments CREATINE KINASE TOTAL (BEAKER) 410 U/L 40-250 H (test code = 380) CREATINE KINASE-MB (BEAKER) (test 7.4 ng/mL 0.0-4.9 H code = 750) CREATINE KINASE-MB INDEX (BEAKER) 1.8 % (test code = 395) CK-MB Reference Range:<5 Normal5-10 Borderline>10 AbnormalTROPONIN I 2016-11-01 06:14:00 Test Item Value Reference Range Interpretation Comments TROPONIN I (BEAKER) (test code = 0.06 ng/mL 0.00-0.15 397) Troponin I (TnI) levels must be interpreted in the context of the presenting symptoms and the clinical findings. Elevated TnI levels indicate myocardial damage, but are not specific for ischemic heart disease. Elevated TnI levels are seen in patients with other cardiac conditions (including myocarditis and congestive heart failure), and slight TnI elevations occur in patients with other conditions, including sepsis, renal failure, acidosis, acute neurological disease, and persistent tachyarrhythmia.CBC W/PLT COUNT & AUTO DIFFERENTIAL 2016-11-01 06:14:00 Test Item Value Reference Range Interpretation Comments WHITE BLOOD CELL COUNT (BEAKER) 10.0 K/ L 4.0-10.0 (test code = 775) RED BLOOD CELL COUNT (BEAKER) 4.93 M/ L 4.20-5.80 (test code = 761) HEMOGLOBIN (BEAKER) (test code = 15.4 GM/DL 13.0-16.8 410) HEMATOCRIT (BEAKER) (test code = 46.2 % 40.0-50.0 411) MEAN CORPUSCULAR VOLUME (BEAKER) 93.7 fL 82.0-98.0 (test code = 753) MEAN CORPUSCULAR HEMOGLOBIN 31.1 pg 27.0-33.0 (BEAKER) (test code = 751) MEAN CORPUSCULAR HEMOGLOBIN CONC 33.2 GM/DL 32.0-36.0 (BEAKER) (test code = 752) RED CELL DISTRIBUTION WIDTH 13.4 % 10.3-14.2 (BEAKER) (test code = 412) PLATELET COUNT (BEAKER) (test 243 K/CU MM 150-430 code = 756) MEAN PLATELET VOLUME (BEAKER) 9.6 fL 6.5-10.5 (test code = 754) NUCLEATED RED BLOOD CELLS 0 /100 WBC 0-0 (BEAKER) (test code = 413) NEUTROPHILS RELATIVE PERCENT 60 % (BEAKER) (test code = 429) LYMPHOCYTES RELATIVE PERCENT 27 % (BEAKER) (test code = 430) MONOCYTES RELATIVE PERCENT 8 % (BEAKER) (test code = 431) EOSINOPHILS RELATIVE PERCENT 4 % (BEAKER) (test code = 432) BASOPHILS RELATIVE PERCENT 1 % (BEAKER) (test code = 437) NEUTROPHILS ABSOLUTE COUNT 6.00 K/ L 1.80-8.00 (BEAKER) (test code = 670) LYMPHOCYTES ABSOLUTE COUNT 2.70 K/ L 1.48-4.50 (BEAKER) (test code = 414) MONOCYTES ABSOLUTE COUNT (BEAKER) 0.80 K/ L 0.00-1.30 (test code = 415) EOSINOPHILS ABSOLUTE COUNT 0.40 K/ L 0.00-0.50 (BEAKER) (test code = 416) BASOPHILS ABSOLUTE COUNT (BEAKER) 0.10 K/ L 0.00-0.20 (test code = 417) BASIC METABOLIC [id number] 06:08:00 Test Item Value Reference Range Interpretation Comments SODIUM (BEAKER) 139 meq/L 135-148 (test code = 381) POTASSIUM (BEAKER) 4.4 meq/L 3.6-5.5 (test code = 379) CHLORIDE (BEAKER) 101 meq/L 98-106 (test code = 382) CO2 (BEAKER) (test 27 meq/L 20-29 code = 355) BLOOD UREA NITROGEN 21 mg/dL 10-26 (BEAKER) (test code = 354) CREATININE (BEAKER) 1.40 mg/dL 0.50-1.20 H (test code = 358) GLUCOSE RANDOM 451 mg/dL 70-110 HH (BEAKER) (test code = 652) CALCIUM (BEAKER) 16.3 mg/dL 8.5-10.5 HH (test code = 697) EGFR (BEAKER) (test 56 mL/min/1.73 ESTIMA JOSÉ LUIS GFR IS code = 1092) sq m NOT ACCURATE CREATININE CLEARANCE IN PREDICTING GLOMERULAR FILTRATION RATE . ESTIMATED GFR I S NOT APPLICABLE FOR DIALYSIS PATIEN TS. PROTHROMBIN [id number] 06:01:00 Test Item Value Reference Range Interpretation Comments PROTIME (BEAKER) (test code = 10.2 seconds 9.3-12.0 759) INR (BEAKER) (test code = 370) 1.0 <=5.9 RECOMMENDED COUMADIN/WARFARIN INR THERAPY RANGESSTANDARD DOSE: 2.0 - 3.0 Includes: PROPHYLAXIS forvenous thrombosis, systemic embolization; TREATMENT for venous thrombosis and/or pulmonary embolus.HIGH RISK: Target INR is 2.5-3.5 for patients with mechanical heart valves.TROPONIN [id number] 05:35:00 Test Item Value Reference Range Interpretation Comments TROPONIN I (BEAKER) (test code = 0.05 ng/mL 0.00-0.15 397) Troponin I (TnI) levels must be interpreted in the context of the presenting symptoms and the clinical findings. Elevated TnI levels indicate myocardial damage, but are not specific for ischemic heart disease. Elevated TnI levels are seen in patients with other cardiac conditions (including myocarditis and congestive heart failure), and slight TnI elevations occur in patients with other conditions, including sepsis, renal failure, acidosis, acute neurological disease, and persistent tachyarrhythmia.CREATINE KINASE (CK), TOTAL AND MB 2016-09-01 05:34:00 Test Item Value Reference Range Interpretation Comments CREATINE KINASE TOTAL (BEAKER) 292 U/L 40-250 H (test code = 380) CREATINE KINASE-MB (BEAKER) (test 5.8 ng/mL 0.0-4.9 H code = 750) CREATINE KINASE-MB INDEX (BEAKER) 2.0 % (test code = 395) CK-MB Reference Range:<5 Normal5-10 Borderline>10 AbnormalBASIC METABOLIC [id number] 05:27:00 Test Item Value Reference Range Interpretation Comments SODIUM (BEAKER) 141 meq/L 135-148 (test code = 381) POTASSIUM (BEAKER) 4.4 meq/L 3.6-5.5 (test code = 379) CHLORIDE (BEAKER) 105 meq/L 98-106 (test code = 382) CO2 (BEAKER) (test 26 meq/L 20-29 code = 355) BLOOD UREA NITROGEN 18 mg/dL 10-26 (BEAKER) (test code = 354) CREATININE (BEAKER) 1.00 mg/dL 0.50-1.20 (test code = 358) GLUCOSE RANDOM 285 mg/dL 70-110 H (BEAKER) (test code = 652) CALCIUM (BEAKER) 8.2 mg/dL 8.5-10.5 L (test code = 697) EGFR (BEAKER) (test 82 mL/min/1.73 ESTIMA JOSÉ LUIS GFR IS code = 1092) sq m NOT ACCURATE CREATININE CLEARANCE IN PREDICTING GLOMERULAR FILTRATION RATE . ESTIMATED GFR I S NOT APPLICABLE FOR DIALYSIS PATIEN TS. CBC W/PLT COUNT & AUTO [id number] 05:11:00 Test Item Value Reference Range Interpretation Comments WHITE BLOOD CELL COUNT (BEAKER) 10.5 K/ L 4.0-10.0 H (test code = 775) RED BLOOD CELL COUNT (BEAKER) 4.80 M/ L 4.20-5.80 (test code = 761) HEMOGLOBIN (BEAKER) (test code = 14.7 GM/DL 13.0-16.8 410) HEMATOCRIT (BEAKER) (test code = 45.2 % 40.0-50.0 411) MEAN CORPUSCULAR VOLUME (BEAKER) 94.3 fL 82.0-98.0 (test code = 753) MEAN CORPUSCULAR HEMOGLOBIN 30.6 pg 27.0-33.0 (BEAKER) (test code = 751) MEAN CORPUSCULAR HEMOGLOBIN CONC 32.4 GM/DL 32.0-36.0 (BEAKER) (test code = 752) RED CELL DISTRIBUTION WIDTH 13.1 % 10.3-14.2 (BEAKER) (test code = 412) PLATELET COUNT (BEAKER) (test 233 K/CU MM 150-430 code = 756) MEAN PLATELET VOLUME (BEAKER) 9.7 fL 6.5-10.5 (test code = 754) NUCLEATED RED BLOOD CELLS 0 /100 WBC 0-0 (BEAKER) (test code = 413) NEUTROPHILS RELATIVE PERCENT 63 % (BEAKER) (test code = 429) LYMPHOCYTES RELATIVE PERCENT 27 % (BEAKER) (test code = 430) MONOCYTES RELATIVE PERCENT 7 % (BEAKER) (test code = 431) EOSINOPHILS RELATIVE PERCENT 3 % (BEAKER) (test code = 432) BASOPHILS RELATIVE PERCENT 1 % (BEAKER) (test code = 437) NEUTROPHILS ABSOLUTE COUNT 6.60 K/ L 1.80-8.00 (BEAKER) (test code = 670) LYMPHOCYTES ABSOLUTE COUNT 2.80 K/ L 1.48-4.50 (BEAKER) (test code = 414) MONOCYTES ABSOLUTE COUNT (BEAKER) 0.70 K/ L 0.00-1.30 (test code = 415) EOSINOPHILS ABSOLUTE COUNT 0.30 K/ L 0.00-0.50 (BEAKER) (test code = 416) BASOPHILS ABSOLUTE COUNT (BEAKER) 0.10 K/ L 0.00-0.20 (test code = 417)
--- NOTE | 2021-02-08 20:42 | CON ---
Date of Consultation: 02/04/2021 Admitted on 02/03/[address] Feldman' service. I saw him on 02/04/2021. Reason For Consultation: Congestive heart failure. History Of Present Illness: Mr. Mcelroy is a 45-year-old unfortunate male has been trying to move to [place] from other state. Has a history of congestive heart failure, pacemaker defibrillator, CVA, cor onary stent, and diabetes. He came in with an episode of congestive heart failure. No syncope. No chest pain. Allergies: NONE. Review of Systems: Negative. Social History: Negative. Family History: Noncontributory. Allergies: NO ALLERGIES. Medications: Include metolazone, Bumex, carvedilol, clopidogrel, insulin, and gabapentin. Physical Examination: Vital Signs: Blood pressure 158/91, pulse was 100, O2 saturation was 99% on 3 L. He was mildly febr ile. HEENT: Negative. Neck: Supple. No bruit. Chest: Reveals rales at both bases. Cardiac: Revealed regular rhythm and rate with an S3 and gallops. Abdomen: Benign. Extremities: Revealed no clubbing, cyanosis, or edema. Diagnostic Data: Chest x-ray showed mild congestive heart failure. Electrocardiogram showed normal sinus rhythm with an old anterolateral infarct. Echocardiogram which was done showed an ejection fra ction of 28% with moderate pulmonary hypertension and a trace pericardial effusion. Renal ultrasound showed no hydronephrosis. His creatinine was 4.62. Hemoglobin was 12.7, glucose was 253. Impression And Plan: 1.Acute on chronic systolic congestive heart failure. 2.Acute renal failure. 3.Pacemaker defibrillator. 4.Coronary artery disease, status post stents. 5.Diabetes. The patient is presently on amlodipine, Eliquis, aspirin, Plavix, bumetanide, insulin, Imdur, Crestor, carvedilol, metolazone, and prednisone. I agree with his present regimen. Nephrolog y is following. He is a very difficult case as he may end up having to have dialysis, unable for us to control his congestive heart failure. I will discuss further his case with Nephrology. I would d efinitely be seeing him as an outpatient. He is obviously not a candidate for KAREN inhibitor or Entre sto. We should focus on carvedilol, blood pressure control, and diuresis. NB/MODL Voice ID: [id number] Report ID: [id number]
--- NOTE | 2021-02-08 21:19 | PN ---
Subjective: Mr. Mcelroy came in with acute renal failure, acute congestive heart failure on chronic s ystolic congestive heart failure. Not a candidate for KAREN inhibitor, may need dialysis down the road . He is on appropriate medical therapy for now including carvedilol, . Needs to be diures ed. Nephrology should be following him. I will discuss the case further with Dr. Feldman. As mara jett stated he may end up needing to have dialysis. We can control his heart failure. He may be a cand idate for transplantation down the road, but I will see him in the office as an outpatient. LEXI/EUGENIO Voice ID: [id number] Report ID: [id number]
[2021-02-09] MEDS ORDERED: allopurinoL 100 MG TAB PO SCH (09:00)
== END 2021-02-08 09:44 | disposition home or self-care (01) | DRG 291 ==
LOC: ER 18:41 → ERHOLD 21:50 → 2ND 22:02
PROVIDERS: ADMIT Family Medicine; ATTEND Family Medicine
DX: I13.0 Hypertensive heart and chronic kidney disease with heart failure and stage 1 through stage 4 chronic kidney disease, or unspecified chronic kidney disease (principal); J96.01 Acute respiratory failure with hypoxia; I50.23 Acute on chronic systolic (congestive) heart failure; I26.99 Other pulmonary embolism without acute cor pulmonale; N18.4 Chronic kidney disease, stage 4 (severe); I24.8 Other forms of acute ischemic heart disease; I31.3 Pericardial effusion (noninflammatory); N17.9 Acute kidney failure, unspecified; E11.22 Type 2 diabetes mellitus with diabetic chronic kidney disease; E11.65 Type 2 diabetes mellitus with hyperglycemia; E11.40 Type 2 diabetes mellitus with diabetic neuropathy, unspecified; I25.2 Old myocardial infarction; I27.20 Pulmonary hypertension, unspecified; E78.5 Hyperlipidemia, unspecified; J44.9 Chronic obstructive pulmonary disease, unspecified; I25.10 Atherosclerotic heart disease of native coronary artery without angina pectoris; N28.9 Disorder of kidney and ureter, unspecified; R77.8 Other specified abnormalities of plasma proteins; Z79.4 Long term (current) use of insulin; Z79.02 Long term (current) use of antithrombotics/antiplatelets; Z79.899 Other long term (current) drug therapy; Z86.73 Personal history of transient ischemic attack (TIA), and cerebral infarction without residual deficits; Z95.5 Presence of coronary angioplasty implant and graft; Z95.810 Presence of automatic (implantable) cardiac defibrillator; Z87.891 Personal history of nicotine dependence; Z79.82 Long term (current) use of aspirin; Z79.52 Long term (current) use of systemic steroids; Z20.822 Contact with and (suspected) exposure to COVID-19
CPT/HCPCS: 0240U; 36415; 71045; 76770; 78582; 80048; 80053; 80061; 80076; 81003; 82805; 82947; 83036; 83605; 83735; 83880; 84145; 84439; 84443; 84484; 85025; 85610; 87040; 87070; 87205; 93005; 93306; 93970; 94640; 96374; 99285; A9540; A9558; J0360; J1644; J1815; J1940; J7512; J7605; U0003

== ENCOUNTER 2021-02-28 20:00 | Inpatient (IN) | payer OTHER ==
[2021-02-28] MEDS ORDERED: ALBUTEROL 2.5 MG/3 ML NEB SOL ONE (20:47)
[2021-02-28] MEDS ORDERED: IPRATROPIUM BROM 0.5MG/2.5ML ONE (20:47)
[2021-02-28 21:14] LABS: Absolute Lymphocytes (CBC) 0.7 K/uL (0.7-4.9); Basophils % 0.5 % (0-1.3); Hematocrit 40.6 % (39.6-49.0); Lymphocytes % 6.3 % (15.3-44.8); MPV 9.5 fL (7.6-11.3); RBC Red Blood Cell Count 4.28 M/uL (4.33-5.43)
[2021-02-28 21:20] LABS: Protime INR 1.28
[2021-02-28 21:32] LABS: Albumin 2.3 g/dL (3.4-5.0); Bilirubin Direct 0.2 mg/dL (0-0.2); Bilirubin Total 0.5 mg/dL (0.2-1.0); Magnesium 1.9 mg/dL (1.8-2.4); Potassium 4.7 mmol/L (3.5-5.1); Protein, Total 7.2 g/dL (6.4-8.2); Troponin (Emerg Dept Use Only) 0.07 ng/mL (0.0-0.045)
[2021-02-28] MEDS ORDERED: PIPERACIL/TAZO 3.375 GM VIAL IV ONE (21:46)
[2021-02-28] MEDS ORDERED: FUROSEMIDE 40 MG/4 ML VIAL ONE ×2 (21:46→22:59)
[2021-02-28] MEDS ORDERED: NA CHLORIDE 0.9% 250 ML ONE (21:46)
[2021-02-28] MEDS ORDERED: ACETAMINOPHEN 325 MG TABLET ONE (21:46)
[2021-02-28] MEDS ORDERED: AZITHROMYCIN 500 MG INJ IVPB ONE (21:46)
--- NOTE | 2021-02-28 21:57 | ER ---
Nurse's Notes [facility] Name: Binu Mcelroy Age: 45 yrs Sex: Male : 1975 Arrival Date: 02/28/2021 Time: 20:12 Bed 20 Private MD: Diagnosis: Diastolic (congestive) heart failure;Systolic (congestive) heart failure;Hypoxemia;Chronic kidney disease, stage 4 (severe);Dyspnea;Type 1 diabetes mellitus with hyperglycemia;Fever, unspecified Presentation: 02/28 20:37 Chief complaint: Patient states: he has had a cough, difficulty breathing for about a bb week, was in the bathroom this morning and coughed so much he passed out. Coronavirus screen: difficulty breathing, Client presents with at least one sign or symptom that may indicate coronavirus-19. Standard/surgical mask placed on the client. Ebola Screen: No symptoms or risks identified at this time. Initial Sepsis Screen: Does the patient meet any 2 criteria? RR > 20 per min. Temp <36.0*C (96.8*F)) or > 38.3*C (100.9*F). Yes Does the patient have a suspected source of infection? Yes: Productive cough/pneumonia If YES to both, name of provider notified: Baljinder Bennett MD. Risk Assessment: Do you want to hurt yourself or someone else? Patient reports no desire to harm self or others. Onset of symptoms was February 18, 2021. 20:37 Method Of Arrival: Ambulatory bb 20:37 Acuity: CRISS 2 bb Triage Assessment: 21:11 General: Appears in no apparent distress. Behavior is calm, cooperative. Pain: Denies mr2 pain. GI: No signs and/or symptoms were reported involving the gastrointestinal system. Historical: - Allergies: 20:43 No Known Allergies; bb - Home Meds: 20:43 Bumex 1 mg Oral tab 1 tab 2 times per day [Active]; carvedilol 12.5 mg Oral tab 1 tab 2 bb times per day [Active]; clopidogrel 75 mg Oral tab once daily [Active]; gabapentin 800 mg Oral tab 1 tab 3 times per day [Active]; metolazone 5 mg Oral tab Q 2 days [Active]; Imdur Oral [Active]; gabapentin oral [Active]; amlodipine oral [Active]; Insulin: Regular Sub-Q [Active]; Allopurinol Oral [Active]; Symbicort inhalation [Active]; ProAir HFA inhalation [Active]; - PMHx: 20:43 CHF; CVA; diabetes mellitus; Myocardial infarction; bb - PSHx: 20:43 Heart Stents; Pacemaker/Defib; bb - Immunization history:: Adult Immunizations up to date, Client reports receiving the 2nd dose of the Covid vaccine. - Social history:: Smoking status: Patient denies any tobacco usage or history of. - Family history:: not pertinent. Screenin:55 Abuse screen: Denies threats or abuse. Denies injuries from another. Nutritional mr2 screening: No deficits noted. Tuberculosis screening: No symptoms or risk factors identified. Fall Risk None identified. Vital Signs: 20:37 BP 105 / 70; Pulse 89; Resp 24 S; Temp 100.7(O); Pulse Ox 77% on R/A; Weight 104.33 kg bb (R); Height 5 ft. 10 in. (177.80 cm) (R); Pain 0/10; 20:50 Pulse Ox 98% on 15% Non-rebreather mask; bb 23:45 BP 119 / 74; Pulse 86; Resp 19; Temp 99.4; Pulse Ox 99% on NC; bb 20:37 Body Mass Index 33.00 (104.33 kg, 177.80 cm) bb ED Course: 20:12 Patient arrived in ED. wm 20:24 Baljinder Bennett MD is Attending Physician. shahnaz 20:43 Triage completed. 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 20:53 Floyd Mejias, SHIREEN is Primary Nurse. mr2 20:55 Patient has correct armband on for positive identification. Bed in low position. Side mr2 rails up X2. 20:55 No provider procedures requiring assistance completed. Inserted saline lock: 18 gauge mr2 in right antecubital area, using aseptic technique. 21:49 Viktoriya Hutton MD is Hospitalizing Provider. shahnaz 03/01 01:08 Patient admitted, IV remains in place. mr2 Administered Medications: 02/28 21:30 Drug: Lasix (furosemide) 40 mg Route: IVP; Site: right antecubital; mr2 21:30 Drug: Tylenol 1000 mg Route: PO; mr2 21:30 Drug: Zosyn (piperacillin-tazobactam) 3.375 grams Route: IVPB; Infused Over: 60 mins; mr2 Site: right antecubital; 21:30 Drug: Zithromax (azithromycin) 500 mg Route: IVPB; Infused Over: 1 hrs; Site: right mr2 antecubital; 21:59 Drug: Lasix (furosemide) 40 mg Route: IVP; Site: right antecubital; mr2 Outcome: 21:57 Decision to Hospitalize by Provider. shahnaz 03/01 00:20 Admitted to Med/surg mr2 Condition: stable Instructed on the need for admit. 02:28 Patient left the ED. bb Signatures: Baljinder Bennett MD MD cha Ballard, Brenda, RN RN bb Cassandra Bland Mike, RN RN mr2 Corrections: (The following items were deleted from the chart) 02/28 20:49 20:43 Home Meds: levemir; serg ulrich
--- NOTE | 2021-02-28 21:58 | EDPHYS ---
Physician Documentation [facility] Name: Binu Mcelroy Age: 45 yrs Sex: Male : 1975 Arrival Date: 02/28/2021 Time: 20:12 Bed 20 Private MD: ED Physician Baljinder Bennett HPI: 02/28 20:36 This 45 yrs old Male presents to ER via Unassigned with complaints of Cough, shahnaz Diarrhea, Fever. 20:36 The patient or guardian reports airway noise, cough, difficulty breathing. Onset: The shahnaz symptoms/episode began/occurred 3 day(s) ago. Severity of symptoms: At their worst the symptoms were moderate, in the emergency department the symptoms are unchanged. Modifying factors: The symptoms are alleviated by sitting and still. Associated signs and symptoms:. Historical: - Allergies: 20:43 No Known Allergies; bb - Home Meds: 20:43 Bumex 1 mg Oral tab 1 tab 2 times per day [Active]; carvedilol 12.5 mg Oral tab 1 tab 2 bb times per day [Active]; clopidogrel 75 mg Oral tab once daily [Active]; gabapentin 800 mg Oral tab 1 tab 3 times per day [Active]; metolazone 5 mg Oral tab Q 2 days [Active]; Imdur Oral [Active]; gabapentin oral [Active]; amlodipine oral [Active]; Insulin: Regular Sub-Q [Active]; Allopurinol Oral [Active]; Symbicort inhalation [Active]; ProAir HFA inhalation [Active]; - PMHx: 20:43 CHF; CVA; diabetes mellitus; Myocardial infarction; bb - PSHx: 20:43 Heart Stents; Pacemaker/Defib; bb - Immunization history:: Adult Immunizations up to date, Client reports receiving the 2nd dose of the Covid vaccine. - Social history:: Smoking status: Patient denies any tobacco usage or history of. - Family history:: not pertinent. ROS: 20:37 Constitutional: Negative for fever, chills, and weight loss, Eyes: Negative for injury, shahnaz pain, redness, and discharge, ENT: Negative for injury, pain, and discharge, Neck: Negative for injury, pain, and swelling, Cardiovascular: Negative for chest pain, palpitations, and edema, Abdomen/GI: Negative for abdominal pain, nausea, vomiting, diarrhea, and constipation, Back: Negative for injury and pain, : Negative for injury, bleeding, discharge, and swelling, MS/Extremity: Negative for injury and deformity, Skin: Negative for injury, rash, and discoloration, Psych: Negative for depression, anxiety, suicide ideation, homicidal ideation, and hallucinations, Allergy/Immunology: Negative for hives, rash, and allergies, Endocrine: Negative for neck swelling, polydipsia, polyuria, polyphagia, and marked weight changes. 20:37 Respiratory: Positive for cough, dyspnea on exertion, orthopnea, shortness of breath. 20:37 MS/extremity: Positive for swelling, of the right leg and left leg. 20:37 Neuro: Positive for weakness. Exam: 20:37 Constitutional: This is a well developed, well nourished patient who is awake, alert, shahnaz and in no acute distress. Head/Face: Normocephalic, atraumatic. Eyes: Pupils equal round and reactive to light, extra-ocular motions intact. Lids and lashes normal. Conjunctiva and sclera are non-icteric and not injected. Cornea within normal limits. Periorbital areas with no swelling, redness, or edema. ENT: Nares patent. No nasal discharge, no septal abnormalities noted. Tympanic membranes are normal and external auditory canals are clear. Oropharynx with no redness, swelling, or masses, exudates, or evidence of obstruction, uvula midline. Mucous membranes moist. Neck: Trachea midline, no thyromegaly or masses palpated, and no cervical lymphadenopathy. Supple, full range of motion without nuchal rigidity, or vertebral point tenderness. No Meningismus. Chest/axilla: Normal chest wall appearance and motion. Nontender with no deformity. No lesions are appreciated. Cardiovascular: Regular rate and rhythm with a normal S1 and S2. No gallops, murmurs, or rubs. Normal PMI, no JVD. No pulse deficits. Abdomen/GI: Soft, non-tender, with normal bowel sounds. No distension or tympany. No guarding or rebound. No evidence of tenderness throughout. Back: No spinal tenderness. No costovertebral tenderness. Full range of motion. Male : Normal genitalia with no discharge or lesions. MS/ Extremity: Pulses equal, no cyanosis. Neurovascular intact. Full, normal range of motion. Neuro: Awake and alert, GCS 15, oriented to person, place, time, and situation. Cranial nerves II-XII grossly intact. Motor strength 5/5 in all extremities. Sensory grossly intact. Cerebellar exam normal. Normal gait. Psych: Awake, alert, with orientation to person, place and time. Behavior, mood, and affect are within normal limits. 20:37 Respiratory: moderate respiratory distress is noted, Respirations: labored breathing, that is moderate, Breath sounds: decreased breath sounds, that are moderate, rhonchi, that are moderate, Respiratory rate: prgressive sob Vital Signs: 20:37 BP 105 / 70; Pulse 89; Resp 24 S; Temp 100.7(O); Pulse Ox 77% on R/A; Weight 104.33 kg bb (R); Height 5 ft. 10 in. (177.80 cm) (R); Pain 0/10; 20:50 Pulse Ox 98% on 15% Non-rebreather mask; bb 23:45 BP 119 / 74; Pulse 86; Resp 19; Temp 99.4; Pulse Ox 99% on NC; bb 20:37 Body Mass Index 33.00 (104.33 kg, 177.80 cm) bb MDM: 20:24 Patient medically screened. shahnaz 20:39 Differential diagnosis: asthma, Bronchitis CHF exacerbation, Chronic Obstructive shahnaz Pulmonary Disease Myocardial Infarction Psychogenic pulmonary edema, reactive airway disease, Sepsis Unstable Angina. Antibiotic administration: Levaquin given. The patient's Wells Deep Vein Thrombosis Score was calculated as follows: Previous DVT/PE (1.5 Pts) Total Score: 0-2 Pts- Low Risk. Differential Diagnosis: Bronchitis Influenza Upper Respiratory Infection Sinusitis Asthma Exacerbation Viral Syndrome Pneumonia. The patient's pulmonary embolism risk score was calculated as follows: the patient has a history of a previous deep vein thrombosis or pulmonary embolism (1.5 Pts) Total Score: 0-2 points. This patient was found to be at low risk for a pulmonary embolism by using the Well's assessment criteria. Immunization status:. Data reviewed: vital signs, nurses notes, lab test result(s), EKG, radiologic studies, plain films. Data interpreted: monitoring coordinator: rate is 93 beats/min, rhythm is regular, Pulse oximetry: on room air is 78 %. Test interpretation: by ED physician or midlevel provider: ECG, plain radiologic studies. Counseling: I had a detailed discussion with the patient and/or guardian regarding: the historical points, exam findings, and any diagnostic results supporting the discharge/admit diagnosis, lab results, radiology results, the need for further work-up and treatment in the hospital. 02/28 20:35 Order name: Basic Metabolic Panel [facility] 02/28 20:35 Order name: CBC with Diff [facility] 02/28 20:35 Order name: LFT's [facility] 02/28 20:35 Order name: Magnesium [facility] 02/28 20:35 Order name: NT PRO-BNP [facility] 02/28 20:35 Order name: PT-INR [facility] 02/28 20:35 Order name: Troponin (emerg Dept Use Only) [facility] 02/28 20:35 Order name: Blood Culture Adult (2) [facility] 02/28 20:35 Order name: SARS-COV-2 RT PCR (Document "Date of Onset" if Symptomatic) [facility] 02/28 20:35 Order name: Influenza Screen (a \\T\\ B) [facility] 02/28 20:35 Order name: RSV [facility] 02/28 20:35 Order name: Lactate [facility] 02/28 20:44 Order name: CRP [facility] 02/28 20:44 Order name: Ferritin [facility] 02/28 20:35 Order name: XRAY Chest (1 view) [facility] 02/28 20:35 Order name: BIPAP [facility] 02/28 21:15 Order name: CBC with Automated Diff; Complete Time: 21:21 [facility] 02/28 21:24 Order name: Protime (+INR); Complete Time: 21:45 EDMS 02/28 21:29 Order name: Lactate; Complete Time: 21:45 EDMS 02/28 21:33 Order name: Basic Metabolic Panel; Complete Time: 21:45 EDMS 02/28 21:33 Order name: Liver (Hepatic) Function; Complete Time: 21:45 EDMS 02/28 21:33 Order name: Troponin (Emerg Dept Use Only); Complete Time: 21:45 EDMS 02/28 21:33 Order name: NT PRO-BNP; Complete Time: 21:45 EDMS 02/28 21:33 Order name: Magnesium; Complete Time: 21:45 EDMS 02/28 22:24 Order name: SARS-COV-2 RT PCR [facility] 02/28 22:33 Order name: C-Reactive Protein [facility] 02/28 22:33 Order name: Ferritin [facility] 02/28 23:00 Order name: RAD [facility] 02/28 23:26 Order name: COVID-19 SARS RT PCR (Document "Date of Onset" if Symptomatic) 03/01 00:42 Order name: SARS-COV-2 RT PCR [facility] 02/28 20:35 Order name: EKG; Complete Time: 20:36 [facility] 02/28 20:35 Order name: Cardiac monitoring [facility] 02/28 20:35 Order name: EKG - Nurse/Tech [facility] 02/28 20:35 Order name: IV Saline Lock [facility] 02/28 20:35 Order name: Labs collected and sent [facility] 02/28 20:35 Order name: O2 Per Protocol [facility] 02/28 20:35 Order name: O2 Sat Monitoring [facility] 02/28 20:35 Order name: Urine Dipstick-Ancillary (obtain specimen) [facility] 02/28 20:35 Order name: Sawyer [facility] Administered Medications: 21:30 Drug: Lasix (furosemide) 40 mg Route: IVP; Site: right antecubital; mr2 21:30 Drug: Tylenol 1000 mg Route: PO; mr2 21:30 Drug: Zosyn (piperacillin-tazobactam) 3.375 grams Route: IVPB; Infused Over: 60 mins; mr2 Site: right antecubital; 21:30 Drug: Zithromax (azithromycin) 500 mg Route: IVPB; Infused Over: 1 hrs; Site: right mr2 antecubital; 21:59 Drug: Lasix (furosemide) 40 mg Route: IVP; Site: right antecubital; mr2 Disposition Summary: 02/28/21 21:57 Hospitalization Ordered Hospitalization Status: Inpatient Admission shahnaz Provider: Viktoriya Hutton cha Location: Telemetry/MedSurg (Inpatient) shahnaz Condition: Fair shahnaz Problem: new shahnaz Symptoms: have improved shahnaz Bed/Room Type: Standard shahnaz Room Assignment: 202(02/28/21 23:17) Diagnosis - Diastolic (congestive) heart failure shahnaz - Systolic (congestive) heart failure shahnaz - Hypoxemia shahnaz - Chronic kidney disease, stage 4 (severe) shahnaz - Dyspnea shahnaz - Type 1 diabetes mellitus with hyperglycemia shahnaz - Fever, unspecified shahnaz Forms: - Medication Reconciliation Form shahnaz - SBAR form shahnaz Signatures: Dispatcher [employer] EDShanna Szymanski RN RN mw Anderson, Corey, MD MD cha Ballard, Brenda, RN RN bb Floyd Mejias RN RN mr2 Corrections: (The following items were deleted from the chart) 20:49 20:43 Crawford Meds: levemir; serg ulrich 23:17 21:57 shahnaz mw
[2021-02-28 22:33] LABS: C-Reactive Protein 84.3 mg/L (<3.00); Ferritin 417.6 ng/mL (26-388)
--- NOTE | 2021-02-28 22:58 | RAD REPORT ---
EXAM DESCRIPTION: RAD - Chest Single View - 02/28/2021 9:44 pm CLINICAL HISTORY: Cough;Dyspnea COMPARISON: February 07 TECHNIQUE: AP portable chest image was obtained 02/28/2021 9:44 pm . FINDINGS: No new mass or consolidation. Interstitial markings remain prominent with some patchy alve olar opacity seen. Heart and vasculature are normal. No measurable pleural effusion and no pneumothor ax. No acute bony abnormality seen. No acute aortic findings suspected. IMPRESSION: No new mass or consolidation. Chest is not significantly different from the comparison.
--- NOTE | 2021-03-01 00:04 | P.HP ---
Certification for Inpatient Patient admitted to: Inpatient With expected LOS: >2 Midnights Patient will require the following post-hospital care: None Practitioner: I am a practitioner with admitting privileges, knowledge of patient current condition, hospital course, and medical plan of care. Services: Services provided to patient in accordance with Admission requirements found in Title 42 Section 412.3 of the Code of Federal Regulations <Cooper Sauer Yumiko - Last Filed: 03/01/21 00:04> Patient History Date of Service: 02/28/21 Reason for admission: CHF exacerbation, hypoxia History of Present Illness: Mr. Mcelroy is a 45 yo M with CHF, CAD, HTN, DM, CKD 4, COPD who presents with 3 days of cough productive of green sputum, SOB, wheezing. He also reports fatigue, weakness, diarrhea, anorexia. Denies nausea and vomiting. No relief of symptoms with OTC medications. His and stepdaughter have been sick recently, both tested negative for COVID. Hypoxic upon arrival, requiring BIPAP. BUN 69 Cr 3.34 GFR 20 Glu 259 Trop 0.07 BNP 70476. CXR IMPRESSION: No new mass or consolidation. Chest is not significantly different from the comparison. - Past Medical/Surgical History Diabetic: Yes -: Systolic congestive heart failure -: CAD -: Diabetes mellitus type 2 -: Hypertension -: CKD4 -: Gout -: Cardiac stents -: Pacemaker/defibrillator Psychosocial/ Personal History: Patient lives at home with his fiance - Family History Family History: Reviewed- Non-Contributory - Social History Smoking Status: Unknown if ever smoked Alcohol use: No CD- Drugs: No Caffeine use: Yes Place of Residence: Home <CamachoCooper S - Last Filed: 03/01/21 00:04> Date of Service: 02/28/21 <Viktoriya Hutton - Last Filed: 03/02/21 17:00> Allergies No Known Allergies Allergy (Verified 01/02/21 09:20) Home Medications: Bumetanide [Bumex*] 1 tab PO BID 01/02/21 Carvedilol [Coreg] 1 tab PO BID 01/02/21 Clopidogrel Bisulfate [Plavix*] 1 tab PO DAILY 01/02/21 Gabapentin 1 tab PO TID 01/02/21 Insulin Glargine,Hum.rec.anlog [Lantus] 50 units SQ BID 01/02/21 Insulin Lispro [Humalog] See Protocol SQ TID 01/02/21 Isosorbide Mononitrate [Isosorbide Mononitrate ER] 1 tab PO DAILY 01/02/21 Rosuvastatin Calcium [Crestor] 1 tab PO DAILY 01/02/21 metOLazone [Metolazone] 1 tab PO DAILY 01/02/21 Allopurinol 50 mg PO SEECOM 02/03/21 Amlodipine [Norvasc*] 5 mg PO DAILY 02/03/21 Albuterol Sulfate [Proair Hfa] 2 puff IH TID PRN #1 [email or web address] 02/08/21 Budesonide/Formoterol Fumarate [Symbicort 160-4.5 Mcg Inhaler] 2 puff IH BID #1 [email or web address] 02/08/21 Review of Systems 10-point ROS is otherwise unremarkable General: Weakness, Malaise Eyes: Unremarkable ENT: Unremarkable Respiratory: Cough, Shortness of Breath, Wheezing Cardiovascular: Unremarkable Gastrointestinal: Diarrhea Genitourinary: Unremarkable Musculoskeletal: Unremarkable Integumentary: Unremarkable Neurological: Unremarkable Lymphatics: Unremarkable <Cooper Sauer - Last Filed: 03/01/21 00:04> Physical Examination - Physical Exam General: Alert, In no apparent distress, Oriented x3, Obese HEENT: Atraumatic, PERRLA, Mucous membr. moist/pink, EOMI, Sclerae nonicteric Neck: Supple, 2+ carotid pulse no bruit, No LAD, Without JVD or thyroid abnormality Respiratory: Diminished, Expiratory wheezes Cardiovascular: Regular rate/rhythm, Normal S1 S2 Gastrointestinal: Normal bowel sounds, No tenderness Musculoskeletal: No tenderness Integumentary: No rashes Neurological: Normal speech, Normal strength at 5/5 x4 extr, Normal tone, Normal affect Lymphatics: No axilla or inguinal lymphadenopathy - Studies Laboratory Data (last 24 hrs) 02/28/21 20:59: PT 14.8 H, INR 1.28 02/28/21 20:59: WBC 10.40, Hgb 13.4 L, Hct 40.6, Plt Count 197 02/28/21 20:59: Sodium 136, Potassium 4.7, BUN 69 H, Creatinine 3.34 H, Glucose 259 H, Magnesium 1.9 D, Total Bilirubin 0.5, AST 28, ALT 34, Alkaline Phosphatase 103 <Cooper Sauer - Last Filed: 03/01/21 00:04> - Studies Laboratory Data (last 24 hrs) 03/02/21 05:30: Sodium 140, Potassium 3.7, BUN 78 H, Creatinine 3.67 H, Glucose 98, Uric Acid 12.0 H, Phosphorus 5.6 H, Total Bilirubin 0.4, AST 25, ALT 29, Alkaline Phosphatase 95 03/02/21 05:30: WBC 5.90 D, Hgb 12.2 L, Hct 36.7 L, Plt Count 173 <Viktoriya Hutton Lanny - Last Filed: 03/02/21 17:00> Assessment and Plan - Problems (Diagnosis) (1) COPD (chronic obstructive pulmonary disease) Current Visit: Yes Status: Chronic Qualifiers: COPD type: unspecified COPD Qualified Code(s): J44.9 - Chronic obstructive pulmonary disease, unspecified (2) Hypoxia Current Visit: Yes Status: Acute (3) CKD (chronic kidney disease) Current Visit: Yes Status: Chronic Qualifiers: Chronic kidney disease stage: stage 4 (severe) Qualified Code(s): N18.4 - Chronic kidney disease, stage 4 (severe) (4) Elevated troponin Current Visit: Yes Status: Acute (5) T2DM (type 2 diabetes mellitus) Current Visit: Yes Status: Chronic Qualifiers: Diabetes mellitus terminal supervisor insulin use: with terminal supervisor use Diabetes mellitus complication status: with kidney complications Diabetes mellitus complication detail: with chronic kidney disease Chronic kidney disease stage: stage 4 (severe) Qualified Code(s): E11.22 - Type 2 diabetes mellitus with diabetic chronic kidney disease; N18.4 - Chronic kidney disease, stage 4 (severe); 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 (6) Advanced chronic obstructive pulmonary disease Current Visit: No Status: Chronic (7) CHF (congestive heart failure), NYHA class III Current Visit: No Status: Acute Qualifiers: Congestive heart failure type: systolic Congestive heart failure chronicity: acute Qualified Code(s): I50.21 - Acute systolic (congestive) heart failure - Plan pulm consulted, cardiology consulted, nephrology consulted continue BIPAP, RT consulted, breathing treatments trend troponin, on tele continue IV lasix, fluid restrict, low sodium diet, daily weights continue IV antibiotics sliding scale insulin and Accuchecks reconcile and continue home medications Discharge Plan: Home Plan to discharge in: 48 Hours - Advance Directives Does patient have a Living Will: No Does patient have a Durable POA for Healthcare: No - Code Status/Comfort Care Code Status Assessed: Yes (full code) Critical Care: No Time Spent Managing Pts Care (In Minutes): 70 <Cooper Sauer - Last Filed: 03/01/21 00:04> - Problems (Diagnosis) (1) Hypoxia Current Visit: Yes Status: Acute (2) CKD (chronic kidney disease) Current Visit: Yes Status: Chronic Qualifiers: Chronic kidney disease stage: stage 4 (severe) Qualified Code(s): N18.4 - Chronic kidney disease, stage 4 (severe) (3) T2DM (type 2 diabetes mellitus) Current Visit: Yes Status: Chronic Qualifiers: Diabetes mellitus alf insulin use: with alf use Diabetes mellitus complication status: with kidney complications Diabetes mellitus complication detail: with chronic kidney disease Chronic kidney disease stage: stage 4 (severe) Qualified Code(s): E11.22 - Type 2 diabetes mellitus with diabetic chronic kidney disease; N18.4 - Chronic kidney disease, stage 4 (severe); 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 (4) CHF (congestive heart failure), NYHA class III Current Visit: No Status: Acute Qualifiers: Congestive heart failure type: systolic Congestive heart failure chronicity: acute Qualified Code(s): I50.21 - Acute systolic (congestive) heart failure (5) Advanced chronic obstructive pulmonary disease Current Visit: No Status: Chronic <Viktoriya Hutton - Last Filed: 03/02/21 17:00> Date of Service: 02/28/21 Subjective Agree with HPI as mentioned above Review of Systems 10-point ROS is otherwise unremarkable Physical Examination - Vital Signs Reviewed - Physical Exam General: Alert, In no apparent distress, Oriented x3 Respiratory: Diminished, Crackles/rales Cardiovascular: Regular rate/rhythm, Normal S1 S2, No murmurs Gastrointestinal: Normal bowel sounds, Soft and benign, Non-distended, No tenderness Musculoskeletal: No clubbing, No tenderness, Swelling Neurological: Normal strength at 5/5 x4 extr, Normal tone, Sensation intact, Cranial nerves 3-12 intact Assessment & Plan - Problems (Diagnosis) (1) Hypoxia Current Visit: Yes Status: Acute (2) CKD (chronic kidney disease) Current Visit: Yes Status: Chronic Qualifiers: Chronic kidney disease stage: stage 4 (severe) Qualified Code(s): N18.4 - Chronic kidney disease, stage 4 (severe) (3) T2DM (type 2 diabetes mellitus) Current Visit: Yes Status: Chronic Qualifiers: Diabetes mellitus alf insulin use: with terminal supervisor use Diabetes mellitus complication status: with kidney complications Diabetes mellitus complication detail: with chronic kidney disease Chronic kidney disease stage: stage 4 (severe) Qualified Code(s): E11.22 - Type 2 diabetes mellitus with diabetic chronic kidney disease; N18.4 - Chronic kidney disease, stage 4 (severe); 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 Echocardiogram is pending 2. Continue with nebs, steroids 3. Start low-dose beta-minerva therapy 4. Cardiology consultation pending 5. Nephrology consultation and pulmonary consultation as well 6. Strict I's and O's 7. Repeat CXR 8. Daily weights 9. Education regarding diet and treatment of congestive heart failure Discharge Plan: Home Plan to discharge in: Greater than 2 days - Advance Directives Does patient have a Living Will: No Does patient have a Durable POA for Healthcare: No - Code Status/Comfort Care Code Status Assessed: Yes Code Status: Full Code Critical Care: No Time Spent Managing PTS Care (In Minutes): 35 <Viktoriya Hutton - Last Filed: 03/02/21 17:00>
--- OUTSIDE RECORDS SUMMARY | 2021-03-01 00:57 | XMS REPORT | Continuity of Care Document ---
:1975 Author Organization [facility] t Address 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, Nuria Primary Care Physician NURSE Attending Clinician Unavailable DIANE Attending Clinician Unavailable DIANE Attending Clinician [phone] OSEI Attending Clinician Unavailable OSEI Attending Clinician [phone] DR PATRICK Attending Clinician Unavailable DR DIANE Attending Clinician Unavailable Kathleen Riddle MD Attending Clinician Ayden SCHULER Attending Clinician Nuvia Lugo MD Attending Clinician Jackie Muñiz MD Attending Clinician Deacon Nair MD Attending Clinician JOSE FRANCISCO Attending Clinician Unavailable OMSTEFANI Attending Clinician [phone] IRIZARRY Attending Clinician Unavailable IRIZARRY Attending Clinician [phone] Ayden Serra MD Attending Clinician Landry SCHULER Attending Clinician Lilliam SCHULER Attending Clinician Neida Lugo MD Attending Clinician Warren Blunt MD Attending Clinician LUBNA Attending Clinician Unavailable LUBNA Attending Clinician [phone] JERRY HUMMEL Attending Clinician Unavailable AYDEN SERRA Attending Clinician Unavailable ACCESSHEALTH Attending Clinician Unavailable SIDDHARTHA Attending Clinician Unavailable ENRIQUE Attending Clinician [phone] JONAS Attending Clinician Unavailable MIMA MARQUIS Attending Clinician Unavailable RADHA MURGUIA Attending Clinician Unavailable KASSI KULKARNI Attending Clinician Unavailable MANAV Attending Clinician [phone] SWETHA Attending Clinician Unavailable VERObdulia Attending Clinician Unavailable DELAROSA Attending Clinician [phone] CANAMABecky Attending Clinician Unavailable TIMA Attending Clinician Unavailable MICAH Attending Clinician Unavailable FOREIGN Attending Clinician Unavailable SHELBY Attending Clinician [phone] DESTINY Attending Clinician Unavailable ALLISON Attending Clinician [...] Expiration Date S renetta JAVI CARE - [id number] GENERIC - JAVI CARE [facility]-MEDICAID - [id number] MEDICAID MEDICARE PART A [id number] 2019 \\T\\ B - MEDICARE 00:00:00 Problems [...] be different from the original. ICD9 DX Rosin Barrel Filler Seizure Seizure Disease Active [facility] [...] Disease [facility] mellitus mellitus [facility] Diabetic Diabetic Disease Active [facility] neuropathy neuropathy [facility] Hyperlipid Hyperlipid Disease Active [facility] em[facility] Carpal Carpal Disease Active [facility] tunnel [facility] Allergies, Adverse Reactions, Alerts Allergy Allergy Status Severity Reaction(s) Onset Inactive Treating Comm ents Source Name Type Date Date Clinician NO KNOWN Allergy Active [facility] Social History Social Habit Start Date [facility] SDOH [facility] - Alcohol Binge Medical Matty ter Sex Assigned At Male [facility] Cigarettes smoked 2016-01-08 2016-01-[address] [facility] - current (pack per 00:00:00 00:00:00 [facility] Center day) - Reported Cigarette 2016-01-08 2016-01-[address] [facility] - pack-years 00:00:00 00:00:00 [facility] Alcohol Comment 2012-10-15 2012-10-[address] [facility] - 00:00:00 00:00:00 [facility] Smoking Status Start Date Stop [...] cess 100 mg 1-05 tablet (50 M10.449, [facility] tablet 00:00: mg) by N18.32 00 oral route every OTHER day allopurinol 2020-03 No take 1/2 Dx: Ac cess 100 mg 1-05 tablet (50 M10.449, [facility] tablet 00:00: mg) by N18.32 00 oral route every OTHER day Vitamin D2 2020-03- No 1{capsu Q1W take 1 A ccess 1,250 mcg 04-02 le} capsule by [facility] (50,000 00:00: 00:00 oral route unit) 00 :00 every capsule week for 12 weeks Vitamin D2 2020-03- No 1{capsu Q1W take 1 A ccess 1,250 mcg 04-02 le} capsule by [facility] (50,000 00:00: 00:00 oral route unit) 00 :00 every capsule week for 12 weeks Vitamin D2 2020-03- No 1{capsu Q1W take 1 A ccess 1,250 mcg 04-02 le} capsule by [facility] (50,000 00:00: 00:00 oral route unit) 00 [...] s 1 mg tablet 1-03 tablet (1 [facility] 00:00: mg) by 00 oral route 2 times per day metolazone 2020-03 No take 1 Acces s 5 mg tablet 1-03 tablet by [facility] 00:00: oral route 00 every day gabapentin [...] 50 Acces s FlexTouch 1-03 unit by [employer] U-100 00:00: subcutaneo Insulin 100 00 us [...] 50 Acces s FlexTouch 1-03 unit by [employer] U-100 00:00: subcutaneo Insulin 100 00 us [...] oral route 00 every day rosuvastati 2020-0 2021- No 1{table [...] Q1W take 1 A ccess 1,250 mcg 8- 10-29 le} capsule by [facility] (50,000 00:00: 00:00 oral route unit) 00 :00 every capsule week for 12 weeks Vitamin D2 2020- No 1{capsu Q1W take 1 A ccess 1,250 mcg 8- 10-29 le} capsule by [facility] (50,000 00:00: 00:00 oral route unit) 00 :00 every capsule week for 12 weeks Vitamin D2 2020- No 1{capsu Q1W take 1 A ccess 1,250 mcg 8- 10-29 le} capsule by [facility] (50,000 00:00: 00:00 oral route unit) 00 :00 every capsule week for 12 weeks Vitamin D2 2020- No 1{capsu Q1W take 1 A ccess 1,250 mcg 8- 10-29 le} capsule by [facility] (50,000 00:00: 00:00 oral route unit) 00 :00 every capsule week for 12 weeks Vitamin D2 2020- No 1{capsu Q1W take 1 A ccess 1,250 mcg 8- 10-29 le} capsule by [facility] (50,000 00:00: 00:00 oral route unit) 00 :00 every capsule week for 12 weeks Vitamin D2 2020- No 1{capsu Q1W take 1 A ccess 1,250 mcg 8- 10-29 le} capsule by [facility] (50,000 00:00: 00:00 oral route unit) 00 :00 every capsule week for 12 weeks Vitamin D2 2020- No 1{capsu Q1W take 1 A ccess 1,250 mcg 8- 10-29 le} capsule by [facility] (50,000 00:00: 00:00 oral route unit) 00 :00 every capsule week for 12 weeks Vitamin D2 2020- No 1{capsu Q1W take 1 A ccess 1,250 mcg 8- 10-29 le} capsule by [facility] (50,000 00:00: 00:00 oral route unit) 00 :00 every capsule week for 12 weeks Vitamin D2 2020- No 1{capsu Q1W take 1 A ccess 1,250 mcg 8- 10-29 le} capsule by [facility] (50,000 00:00: 00:00 oral route unit) 00 :00 every capsule week for 12 weeks Vitamin D2 2020- No 1{capsu Q1W take 1 A ccess 1,250 mcg 11-02 le} capsule by [facility] (50,000 00:00: 00:00 oral route unit) 00 :00 every capsule week for 12 weeks Vitamin D2 2020- No 1{capsu Q1W take 1 A ccess 1,250 mcg 11-02 le} capsule by [facility] (50,000 00:00: 00:00 oral route unit) 00 :00 every capsule week for 12 weeks tramadol 50 No 1{table Q12H take 1 Dx: A ccess mg tablet 8-03 t} tablet by M79.671, H eah 00:00: oral route M79.644, 00 every 12 [...] s 5 mg tablet 8-03 tablet by a lt 00:00: oral route 00 every day bumetanide [...] M14.679, hours as E11.621, needed E11.40 amlodipine 0 No take 1 Acces s 5 mg tablet 8-03 tablet (5 [facility] 00:00: mg) by 00 oral route once daily carvedilol 0 No 1{table Q12H take 1 Ac cess [...] 00 3 times every day tramadol 50 2020-0 No 1{table Q12H take 1 Dx: A ccess mg tablet 8-03 t} tablet by M79.671, H ealth 00:00: oral route M79.644, 00 every 12 M14.679, hours as E11.621, needed E11.40 amlodipine 0 No take 1 Acces s 5 mg tablet 8-03 tablet (5 [facility] 00:00: mg) by 00 oral route once daily carvedilol 0 No 1{table Q12H take 1 Ac cess [...] 00 3 times every day tramadol 50 2020-0 No 1{table Q12H take 1 Dx: A [...] oral route 2 times per day gabapentin 2020-0 No 1{table Q8H take 1 Ac cess 800 mg 8-03 t} tablet by Health tablet 00:00: oral route 00 3 times every day tramadol 50 2020-0 No 1{table Q12H take 1 Dx: A [...] hours as E11.621, needed E11.40 tramadol 50 2020-0 No 1{table Q12H take 1 Dx: A ccess mg tablet 10-29 t} tablet by M79.671, H ealth 00:00: oral route M79.644, 00 every 12 M14.679, hours as E11.621, needed E11.40 tramadol 50 2020-0 No 1{table Q12H take 1 Dx: A ccess mg tablet 10-29 t} tablet by M79.671, H ealth 00:00: [...] 00 :00 3 times every day amlodipine 2020-0 2020- No take 1 Acce ss 5 mg tablet 10-29 tablet (5 He alth 00:00: 00:00 mg) by 00 :00 oral route once daily carvedilol 2020-2020- No 1{table Q12H take 1 A ccess 12.5 mg 10-29 t} tablet by Health tablet 00:00: 00:00 oral route 00 :00 2 times every day with food clopidogrel 2020-2020- No take 1 Acc ess 75 mg 10-29 tablet (75 Health tablet 00:00: 00:00 mg) by 00 :00 oral route once daily isosorbide 2020-2020- No take 1 Acce ss mononitrate 10-29 tablet (60 H ealth ER 60 mg 00:00: 00:00 mg) by tablet,exte 00 :00 oral route nded once daily release 24 in the hr morning metolazone 2020-2020- No take 1 Acce ss 5 mg tablet 10-29 tablet by He alth 00:00: 00:00 oral route 00 :00 every day bumetanide 2020-2020- No take 1 Acce ss 1 mg tablet 10-29 tablet (1 He alth 00:00: 00:00 mg) by 00 :00 oral route 2 times per day gabapentin 2020-2020- No 1{table Q8H take 1 A ccess 800 mg 10-29 t} tablet by Health tablet 00:00: 00:00 oral route 00 :00 3 times every day amlodipine 2020-0 2020- No take 1 Acce ss 5 mg tablet 10-29 tablet (5 He alth 00:00: 00:00 mg) by 00 :00 oral route once daily carvedilol 2020-2020- No 1{table Q12H take 1 A ccess [...] day Humalog 2020- No inject Access KwikPen 10-29 [...] meals Humalog 2020- No inject Access KwikPen 8-14 5-10 Units Healt [facility] (U-100) 00:00: 00:00 by Insulin 100 00 :00 Subcutaneo unit/mL us route 3 subcutaneou times per s day on a medium sliding scale three times a day before meals Humalog 2020- No inject [facility] K[employer]Pen 8-12-10 5-10 Units [facility]alt [facility] (U-100) 00:00: 00:00 by Insulin 100 00 :00 Subcutaneo unit/mL us route 3 subcutaneou times per s day on a medium sliding scale three times a day before meals Humalog 2020- No inject [facility] K[employer] 8-12-10 5-10 Units Healt [facility] (U-100) 00:00: 00:00 by Insulin 100 00 :00 Subcutaneo unit/mL us route 3 subcutaneou times per s day on a medium sliding scale three times a day before meals Humalog 2020- No inject Access KwikPen 8-14 5-10 Units Healt [facility] (U-100) 00:00: 00:00 by Insulin 100 00 :00 Subcutaneo unit/mL us route 3 subcutaneou times per s day on a medium sliding scale three times a day before meals Humalog 2020- No inject Access [employer]Pen 8-14 5-10 Units Healt [facility] (U-100) 00:00: 00:00 by Insulin 100 00 :00 Subcutaneo unit/mL us route 3 subcutaneou times per s day on a medium sliding scale three times a day before meals Humalog 2020- No inject Access K[employer]Pen 8-12-10 5-10 Units Healt h (U-100) 00:00: 00:00 by Insulin 100 00 :00 Subcutaneo unit/mL us route 3 subcutaneou times per s day on a medium sliding scale three times a day before meals Humalog 2020- No inject Access KwikPen 8-03 09-14 5-10 Units Healt [facility] (U-100) 00:00: 00:00 by Insulin 100 00 :00 Subcutaneo unit/mL us route 3 subcutaneou times per s day on a medium sliding scale three times a day before meals lisinopril 2021-0 2021- No 1{table Q1D take [...] route 00 :00 every day lisinopril 2020-0 2021- No 1{table Q1D take 1 A ccess 20 mg 812-01 t} tablet by Health tablet 00:00: 00:00 oral route 00 :00 every day lisinopril 2020-0 2021- No 1{table Q1D take 1 A ccess 20 mg 8-12-01 t} tablet by Health tablet 00:00: 00:00 oral route 00 :00 every day atorvastati 2020-0 1- No take 1 Acc ess n 80 mg -11-02 tablet by Health tablet 00:00: 00:00 Oral route 00 :00 1 time per day atorvastati 2020-0 2020- No take 1 Acc ess n 80 mg -11-02 tablet by Health tablet 00:00: 00:00 Oral route 00 :00 1 time per day atorvastati 2020-0 2021- No take 1 Acc ess n 80 mg 10-29 tablet by Health tablet 00:00: 00:00 Oral route 00 :00 1 time per day atorvastati 2021-0 2021- No take 1 Acc ess n 80 mg 10-29 tablet by Health tablet 00:00: 00:00 Oral route 00 :00 1 time per day atorvastati 2021-0 2021- No take 1 Acc ess n 80 mg 10-29 tablet by Health tablet 00:00: 00:00 Oral route 00 :00 1 time per day atorvastati 1-0 2021- No take 1 Acc ess n 80 mg 10-29 tablet by Health tablet 00:00: 00:00 Oral route 00 :00 1 time per day atorvastati 2021-0 2021- No take 1 Acc ess n 80 mg -11-02 tablet by Health tablet 00:00: 00:00 Oral route 00 :00 1 time per day atorvastati 2021-0 2021- No take 1 Acc ess n 80 mg 8-11-02 tablet by Health tablet 00:00: 00:00 Oral route 00 :00 1 time per day atorvastati 2021-0 2021- No take 1 Acc ess n 80 mg -11-02 tablet by Health tablet 00:00: 00:00 Oral route 00 :00 1 time per day atorvastati 2020-2020- No take 1 Acc ess n 80 mg 811-02 tablet by Health tablet 00:00: 00:00 Oral route 00 :00 1 time per day atorvastati 2020-2020- No take 1 Acc ess n 80 mg 811-02 tablet by Health tablet 00:00: 00:00 Oral route 00 :00 1 time per day carvedilol 2020-2020- No take 1 Acce ss [...] take 1 Acce ss 25 mg 8-03 -03 tablet (25 Health tablet 00:00: 00:00 [...] take 1 Acce ss 25 mg 8-03 -03 tablet (25 Health tablet 00:00: 00:00 [...] No take 1 Acce ss 25 mg 10-29 tablet (25 Health tablet 00:00: 00:00 mg) by 00 :00 oral route 2 times per day with food carvedilol 2020- No take 1 Acce ss 25 mg 10-29 tablet (25 Health tablet 00:00: 00:00 mg) by 00 :00 oral route 2 times per day with food carvedilol 2020- No take 1 Acce ss 25 mg 10-29 tablet (25 Health tablet 00:00: 00:00 mg) by 00 :00 oral route 2 times per day with food carvedilol 2020- No take 1 Acce ss 25 mg 10-29 tablet (25 Health tablet 00:00: 00:00 mg) [...] s - tablet 13:32: daily. Medical 10 Center clopidogrel Yes 75mg QD Take [address] [facility] (PLAVIX) 75 7-04 by mouth [facility] - mg tablet 13:32: daily. Medica l 10 Center bumetanide Yes 1mg Q.5D Take 1 mg [...] mouth. [facility] - tablet 13:32: Medical [place] atorvastati Yes 80mg QD Take [address] [facility] (LIPITOR) 7-04 by mouth [facility] - 80 MG 13:32: every Medical tablet 10 evening. [place] isosorbide Yes Chronic 60mg QD Take 60 [...] s - tablet 13:32: daily. Medical [place] clopidogrel Yes 75mg QD Take [address] [facility] (PLAVIX) 75 7-04 by mouth Luke s - mg tablet 13:32: daily. Medica l 10 [place] bumetanide Yes 1mg Q.5D Take [address] (BUMEX) 1 7-04 by mouth 2 [facility] - MG tablet 13:32: (two) Medical 10 times Center daily. carvediloL 2021-0 Yes 25mg Q.5D Take [address] (COREG) 25 7-04 by mouth 2 Lo es - MG tablet 13:32: (two) Medical 10 times Center daily. aspirin 81 Yes 81mg Take [address] MG EC 7-04 by mouth. [facility] - tablet 13:32: Medical [place] atorvastati Yes 80mg QD Take [address] [facility] [facility] (LIPITOR) 7-04 by mouth Luke s - 80 MG 13:32: every Medical tablet 10 evening. [place] isosorbide Yes Chronic 60mg QD Take 60 [...] mouth Luke [facility] - tablet 13:32: daily. [address] clopidogrel Yes 75mg QD Take [address] [facility] [address] (PLAVIX) 75 7-04 by mouth [facility] - mg tablet 13:32: daily. Medica l [address] [place] [address] bumetanide Yes 1mg Q.5D Take 1 mg [...] mouth. [facility] - tablet 13:32: Medical 10 [place] atorvastati Yes 80mg QD Take [address] [facility] [address] [facility] (LIPITOR) 7-04 by mouth Luke s - 80 MG 13:32: every Medical tablet 10 evening. [place] isosorbide Yes Chronic 60mg QD Take 60 [...] mouth Luke s - tablet 13:32: daily. [address] clopidogrel Yes 75mg QD Take [address] [facility] [address] (PLAVIX) 75 7-04 by mouth [facility] - mg tablet 13:32: daily. Medica l [address] [place] [address] bumetanide Yes 1mg Q.5D Take 1 mg [...] 7-04 by mouth. [facility] - tablet 13:32: [address] atorvastati Yes 80mg QD Take [address] [facility] [address] [facility] (LIPITOR) 7-04 by mouth Luke s - 80 MG 13:32: every Medical tablet 10 evening. [place] isosorbide Yes Chronic 60mg QD Take 60 [...] available per doctor office . aspirin 81 0 Yes 81mg QD Take [address] MG chewable 7-04 by mouth Luke s - tablet 13:32: daily. [address] clopidogrel Yes 75mg QD Take [address] [facility] [address] (PLAVIX) 75 7-04 by mouth Luke s - mg tablet 13:32: daily. Medica l [address] [place] [address] bumetanide Yes 1mg Q.5D Take [address] (BUMEX) 1 7-04 by mouth 2 Luke s - MG tablet 13:32: (two) Medical 10 times Center daily. carvediloL Yes 25mg Q.5D Take [address] (COREG) 25 7-04 by mouth 2 Lo es - MG tablet 13:32: (two) Medical 10 times Center daily. aspirin 81 0 Yes 81mg Take [address] MG EC 7-04 by mouth. [facility] - tablet 13:32: Medical 10 [place] atorvastati Yes 80mg QD Take [address] [facility] [facility] (LIPITOR) 7-04 by mouth Luke s - 80 MG 13:32: every Medical tablet 10 evening. [place] isosorbide Yes Chronic 60mg QD Take 60 [...] mouth [facility] - tablet 13:32: daily. [address] clopidogrel Yes 75mg QD Take [address] [facility] [address] (PLAVIX) 75 7-04 by mouth [facility] - mg tablet 13:32: daily. Medica l [address] [place] [address] bumetanide Yes 1mg Q.5D Take 1 mg [...] 7-04 by mouth. [facility] - tablet 13:32: [address] atorvastati Yes 80mg QD Take [address] [facility] (LIPITOR) 7-04 by mouth Luke s - 80 MG 13:32: every Medical tablet 10 evening. [place] isosorbide Yes Chronic 60mg QD Take 60 [...] available per doctor office . aspirin 81 0 Yes 81mg QD Take [address] MG chewable 7-04 by mouth [facility] - tablet 13:32: daily. Medical Center clopidogrel 2020-0 Yes 75mg QD Take [address] [facility] [address] (PLAVIX) 75 7-04 by mouth [facility] - mg tablet 13:32: daily. Medica l 10 Center bumetanide 0 Yes 1mg Q.5D Take [address] (BUMEX) 1 7-04 by mouth 2 [facility] - MG tablet 13:32: (two) Medical 10 times Center daily. carvediloL 0 Yes 25mg Q.5D Take [address] (COREG) 25 7-04 by mouth 2 Lo es - MG tablet 13:32: (two) Medical 10 times Center daily. aspirin 81 2020-0 Yes 81mg Take [address] MG EC 7-04 by mouth. [facility] - tablet 13:32: [address] bisacodyL 2020-0 Yes 5mg Take [address] [facility] (DULCOLAX) [...] Pain. Max Daily Amount: 3 tablets bisacodyL 2020-0 Yes 5mg Take [address] [facility] (DULCOLAX) [...] Pain. Max Daily Amount: 3 tablets bisacodyL 2020-0 Yes 5mg Take [address] [facility] (DULCOLAX) [...] Pain. Max Daily Amount: 3 tablets bisacodyL 202-0 Yes 5mg Take [address] [facility] (DULCOLAX) [...] daily as needed for Constipati on. HYDROcodone 202-0 Yes 1{tbl} Take [address] [facility] [...] I St -acetaminop 7-04 tablet by Lo [facility] (NORCO 00:00: mouth Medica l 10-325) 00 [...] Q.5D Take [address] (MONODOX) 7-07 03-11 capsule [facility] - 100 MG 00:00: 23:59 (100 mg Medical capsule 00 :00 total) by Center mouth 2 (two) times daily for 7 days. amoxicillin 2020-2020- No 1{tbl} Q.5D Take [address] -clavulanat 7-07 03-11 tablet by Siddhartha kes - e 00:00: 23:59 mouth 2 Medical (AUGMENTIN) 00 :00 (two) Center 875-125 mg times per tablet daily for 7 days. doxycycline 2020-2020- No 100mg Q.5D Take [address] (MONODOX) 7-07 03-11 capsule [facility] - 100 MG 00:00: 23:59 (100 mg Medical capsule 00 :00 total) by Center mouth 2 (two) times daily for 7 days. amoxicillin 2020-2020- No 1{tbl} Q.5D Take [address] -clavulanat 7-07 03-11 tablet by Siddhartha kes - e 00:00: 23:59 mouth 2 Medical (AUGMENTIN) 00 :00 (two) Center 875-125 mg times per tablet daily for 7 days. doxycycline 2020- No 100mg Q.5D Take [address] (MONODOX) 7-07 03-11 capsule [facility] - 100 MG 00:00: 23:59 (100 mg Medical capsule 00 :00 total) by Center mouth 2 (two) times daily for 7 days. amoxicillin 2020-2020- No 1{tbl} Q.5D Take 1 C HI [...] 100mg Take [address] (MONODOX) 7- 07-04 capsule [facility] - 100 MG 00:00: [...] 100mg Take [address] (MONODOX) 7- 07-04 capsule [facility] - 100 MG 00:00: 00:00 (100 mg Medical capsule 00 :00 total) by Center mouth every 12 (twelve) hours for 7 days. amoxicillin 2020- No 1{tbl} Take [address] -clavulanat 7-04 07-04 tablet by Siddhartha [employer] [employer] - e 00:00: 00:00 mouth Medical (AUGMENTIN) [...] Take [address] -clavulanat -07 03- tablet by Siddhartha kes - e 00:00: 00:00 mouth Medical (AUGMENTIN) 00 :00 every 12 Cent er 875-125 mg (twelve) per tablet hours for 7 days. doxycycline 2020- No 100mg Take [address] (MONODOX) -07 03- capsule [facility] - 100 MG 00:00: 00:00 (100 mg Medical capsule 00 :00 total) by Center mouth every 12 (twelve) hours for 7 days. amoxicillin 2020- No 1{tbl} Take [address] -clavulanat -07 03- tablet by Siddhartha kes - e 00:00: 00:00 mouth Medical (AUGMENTIN) 00 :00 every 12 Cent er 875-125 mg (twelve) per tablet hours for 7 days. doxycycline 2020- No 100mg Take [address] (MONODOX) 09-29- capsule [facility] - 100 MG 00:00: 00:00 (100 mg Medical capsule 00 :00 total) by Center mouth every 12 (twelve) hours for 7 days. amoxicillin 2020- No 1{tbl} Take [address] -clavulanat -07 03- tablet by Siddhartha kes - e 00:00: 00:00 mouth Medical (AUGMENTIN) 00 :00 every 12 Cent er 875-125 mg (twelve) per tablet hours for 7 days. doxycycline 2020- No 100mg Take [address] (MONODOX) 09-29- capsule [facility] - 100 MG 00:00: 00:00 (100 mg Medical capsule 00 :00 total) by Center mouth every 12 (twelve) hours for 7 days. Levemir No 50U Q12H inject 50 Acces s FlexTouch 6-22 unit by [employer] U-100 00:00: subcutaneo Insulin 100 00 us route 2 unit/mL (3 times mL) every day subcutaneou s pen Levemir No 50U Q12H inject 50 Acces s FlexTouch 6-22 unit by [employer] U-100 00:00: subcutaneo Insulin 100 00 us route 2 unit/mL (3 times mL) every day subcutaneou s pen Levemir No 50U Q12H inject 50 Acces s FlexTouch 6-22 unit by [employer] [facility] 00:00: subcutaneo Insulin 100 00 us route 2 unit/mL (3 times mL) every day subcutaneou s pen Levemir No 50U Q12H inject 50 Acces s FlexTouch 6-22 unit by [employer] [facility] [facility] 00:00: subcutaneo Insulin 100 00 us route 2 unit/mL (3 times mL) every day subcutaneou s pen Levemir No 50U Q12H inject 50 Acces s FlexTouch 6-22 unit by [employer] [facility] 00:00: subcutaneo Insulin 100 00 us route 2 unit/mL (3 times mL) every day subcutaneou s pen Levemir No 50U Q12H inject 50 Acces s FlexTouch 6-22 unit by [employer] [facility] 00:00: subcutaneo Insulin 100 00 us route 2 unit/mL (3 times mL) every day subcutaneou s pen Levemir No 50U Q12H inject 50 Acces s FlexTouch 6-22 unit by [employer] [facility] [facility] 00:00: subcutaneo Insulin 100 00 us route 2 unit/mL (3 times mL) every day subcutaneou s pen Levemir No 50U Q12H inject 50 Acces s FlexTouch 6-22 unit by [employer] [facility] 00:00: subcutaneo Insulin 100 00 us route 2 unit/mL (3 times mL) every day subcutaneou s pen Levemir 2020- No 50U Q12H inject 50 Acce ss FlexTouch 6-22 11-03 unit by Health U-100 00:00: 00:00 subcutaneo Insulin 100 00 :00 us route 2 unit/mL (3 times mL) every day subcutaneou s pen Levemir 2020- No 50U Q12H inject 50 Acce ss FlexTouch 09-17 unit by Health U-100 00:00: 00:00 subcutaneo Insulin 100 00 :00 us route 2 unit/mL (3 times mL) every day subcutaneou s pen Levemir 2020- No 50U Q12H inject 50 Acce ss FlexTouch 09-17 unit by Health U-100 00:00: 00:00 subcutaneo [...] mg tablet 09-17 t} tablet by Heal th 00:00: 00:00 [...] ccess mg tablet 09-17 t} tablet by [facility] 00:00: 00:00 oral route 00 :00 every [...] mg tablet 09-17 t} tablet by Heal th 00:00: 00:00 [...] ccess mg tablet 09-17 t} tablet by [facility] 00:00: 00:00 oral route 00 :00 every [...] mg tablet 09-17 t} tablet by Heal th 00:00: 00:00 [...] mg tablet 09-17 t} tablet by Heal 00:00: 00:00 oral route 00 :00 every [...] mg tablet 09-17 t} tablet by [facility]al th 00:00: 00:00 [...] mg tablet 09-17 t} tablet by Heal 00:00: 00:00 oral route 00 :00 every [...] mg tablet 09-17 t} tablet by Heal th 00:00: 00:00 [...] ccess mg tablet 09-17 t} tablet by [facility] 00:00: 00:00 oral route 00 :00 every [...] three times a day before meals lisinopril 2020- No 1{table Q1D take 1 A ccess 20 mg 09-17-25 t} tablet by [employer] tablet 00:00: 00:00 oral route 00 :00 [...] mg tablet 5-24 06-22 t} tablet by [facility] 00:00: 00:00 oral route 00 :00 every day Januvia 100 2020-0 2021- No 1{table Q1D take 1 Access mg tablet 5-24 06-22 t} tablet by [facility] 00:00: 00:00 oral route 00 :00 every day Januvia 100 2020-0 2021- No 1{table Q1D take 1 Access mg tablet 5-24 06-22 t} tablet by [facility] 00:00: 00:00 oral route 00 :00 every day Januvia 100 2020-0 2021- No 1{table Q1D take 1 Access mg tablet 5-24 06-22 t} tablet by [facility] 00:00: 00:00 oral route 00 :00 every day Januvia 100 2020-0 2021- No 1{table Q1D take 1 Access mg tablet 5-24 06-22 t} tablet by [facility] 00:00: 00:00 oral route 00 :00 every day Januvia 100 2020-0 2021- No 1{table Q1D take 1 Access mg tablet 5-24 06-22 t} tablet by [facility] 00:00: 00:00 oral route 00 :00 every day Januvia 100 2020-0 2021- No 1{table Q1D take 1 Access mg tablet 5-24 06-22 t} tablet by [facility] 00:00: 00:00 oral route 00 :00 every day Januvia 100 2020-0 2021- No 1{table Q1D take 1 Access mg tablet 5-24 06-22 t} tablet by [facility] 00:00: 00:00 oral route 00 :00 every day Januvia 100 2020-0 2021- No 1{table Q1D take 1 Access mg tablet 5-24 06-22 t} tablet by [facility] 00:00: 00:00 oral route 00 :00 every day Januvia 100 2020-0 2021- No 1{table Q1D take 1 Access mg tablet 5-24 06-22 t} tablet by [facility] 00:00: 00:00 oral route 00 :00 every day Januvia 100 2020-0 2021- No 1{table Q1D take 1 Access mg tablet 5-24 06-22 t} tablet by [facility] 00:00: 00:00 oral route 00 :00 every day Santyl 250 0 No Q1D apply [...] every day to cleansed affected area isosorbide 202-0 2021- No take 1 [facility] mononitrate 5-20 08-03 tablet (60 [facility] 60 mg 00:00: 00:00 mg) by tablet,exte 00 :00 oral route nded once daily release 24 in the hr morning gabapentin 2020-2020- No 1{table Q8H take 1 A ccess 800 mg 5-20 - t} tablet by [facility] tablet 00:00: 00:00 oral route 00 :00 3 times every day clopidogrel 2020-0 2020- No take 1 Acc [...] 2 times per day with food bumetanide 2020-2020- No take 1 Acce ss 1 mg [...] 1 Acc ess n 80 mg 5-20 10-29 tablet by [facility] tablet 00:00: 00:00 Oral route 00 :00 1 time per day amlodipine 2020- No take 1 [facility]ce ss 5 mg tablet -15 11- tablet (5 [facility]th 00:00: 00:00 mg) by 00 :00 oral route once daily Levemir 2020- No 100U Q1D inject 100 Acc ess FlexTouch 5-20 -22 unit by [facility] U-100 00:00: 00:00 subcutaneo Insulin 100 00 :00 us route unit/mL (3 every day mL) subcutaneou s pen metolazone 2020- No 1{table Q2D take 1 A ccess 5 mg tablet -20 - t} tablet by [facility] 00:00: 00:00 oral route 00 :00 every 2 days lisinopril 2020- No 1{table Q1D take 1 A ccess 20 mg 5-20 - t} tablet by Health tablet 00:00: 00:00 oral route 00 :00 every day Levemir 2020- No 100U Q1D inject 100 Acc ess FlexTouch 5-20 -22 unit by [facility] 00:00: 00:00 subcutaneo Insulin 100 00 :00 us route unit/mL (3 every day mL) [facility]-2020- No 1{table Q2D take 1 A ccess 5 mg tablet 5-20 06-22 t} tablet by [facility] 00:00: 00:00 oral route 00 :00 every 2 days lisinopril 2020-0 2020- No 1{table Q1D take 1 A ccess 20 mg 5-20 06-22 t} tablet by [employer] tablet 00:00: 00:00 oral route 00 :00 every day Levemir 2020-0 2020- No 100U Q1D inject 100 Acc ess FlexTouch 5-20 06-22 unit by [facility] 00:00: 00:00 subcutaneo Insulin 100 00 :00 [facility] route unit/mL (3 [facility] day [facility]- No 1{table Q2D take 1 A ccess 5 mg tablet 5-20 06-22 t} tablet by [facility] 00:00: 00:00 oral route 00 :00 every 2 days lisinopril 2020-0 2020- No 1{table Q1D take 1 A ccess 20 mg 5-20 06-22 t} tablet by [employer] tablet 00:00: 00:00 oral route 00 :00 every day Levemir 2020-0 1- No 100U Q1D inject 100 Acc ess FlexTouch 5-20 06-22 unit by [facility] 00:00: 00:00 subcutaneo Insulin 100 00 :00 us route unit/mL (3 every day mL) [facility] pen metolazone 2020-0 2020- No 1{table Q2D take 1 A ccess 5 mg tablet 5-20 06-22 t} tablet by [facility] 00:00: 00:00 oral route 00 :00 every 2 days lisinopril 2020-0 2021- No 1{table Q1D take 1 A ccess 20 mg 5-20 06-22 t} tablet by [facility] tablet 00:00: 00:00 oral route 00 :00 every day Levemir 2020-0 2020- No 100U Q1D inject 100 Acc ess FlexTouch 5-20 06-22 unit by [employer] [facility] 00:00: 00:00 subcutaneo Insulin 100 00 :00 us route unit/mL (3 every day mL) subcutaneou s pen metolazone 2020-0 2020- No 1{table Q2D take 1 A ccess 5 mg tablet 5-20 06-22 t} tablet by [facility] 00:00: 00:00 oral route 00 :00 every 2 days lisinopril 2020-0 202- No 1{table Q1D take 1 A ccess 20 mg 5-20 06-22 t} tablet by [facility] tablet 00:00: 00:00 oral route 00 :00 every day Levemir 2020-0 2020- No 100U Q1D inject 100 Acc ess FlexTouch 5-20 06-22 unit by [facility] 00:00: 00:00 subcutaneo Insulin 100 00 :00 us route unit/mL (3 every day mL) subcutane s pen metolazone 2020- No 1{table Q2D take 1 A ccess 5 mg tablet 5-20 06-22 t} tablet by [facility] 00:00: 00:00 oral route 00 :00 every 2 days lisinopril 2020-0 202- No 1{table Q1D take 1 A ccess 20 mg 5-20 06-22 t} tablet by [facility] tablet 00:00: 00:00 oral route 00 :00 every day Levemir 2020-0 2021- No 100U Q1D inject 100 Acc ess FlexTouch 5-20 06-22 unit by [facility] 00:00: 00:00 subcutaneo Insulin 100 00 :00 us route unit/mL (3 every day mL) subcutaneou s pen metolazone 202- No 1{table Q2D take 1 A ccess 5 mg tablet 5-20 06-22 t} tablet by [facility] 00:00: 00:00 oral route 00 :00 every 2 days lisinopril 2020-0 202- No 1{table Q1D take 1 A ccess 20 mg 5-20 06-22 t} tablet by [facility] tablet 00:00: 00:00 oral route 00 :00 every day Levemir 2020-0 202- No 100U Q1D inject 100 Acc ess FlexTouch 5-20 06-22 unit by [employer] [facility] 00:00: 00:00 subcutaneo Insulin 100 00 :00 us route unit/mL (3 every day mL) subcutaneou s pen metolazone 2020-2020- No 1{table Q2D [...] Acc ess FlexTouch 5-20 06-22 unit by [facility] 00:00: 00:00 subcutaneo Insulin 100 00 :00 us route unit/mL (3 every day [facility]-2020- No 1{table Q2D take 1 A ccess 5 mg tablet 5-20 06-22 t} tablet by [facility] 00:00: 00:00 oral route 00 :00 every 2 days lisinopril 2020-0 1- No 1{table Q1D take 1 A ccess 20 mg 5-20 06-22 t} tablet by [facility] tablet 00:00: 00:00 oral route 00 :00 every day Levemir 2020-0 2020- No 100U Q1D inject 100 Acc ess FlexTouch 5-20 06-22 unit by [facility] 00:00: 00:00 subcutaneo Insulin 100 00 :00 us route unit/mL (3 every day mL) subcutane s pen metolazone 2020-1- No 1{table Q2D take 1 A ccess 5 mg tablet 5-20 06-22 t} tablet by [facility] 00:00: 00:00 oral route 00 :00 every 2 days lisinopril 2020-0 2021- No 1{table Q1D take 1 A [...] subcutaneou morning s pen and evening Levemir No inject 50 [facility] FlexTouch 5-20 05-20 Units by [facility] U-100 00:00: 00:00 Subcutaneo Insulin 100 00 :00 us route 2 unit/mL (3 times per mL) day in the subcutaneou morning s pen and evening Levemir No inject 50 [facility] ss FlexTouch 5-20 05-20 Units by [facility] U-100 00:00: 00:00 Subcutaneo Insulin 100 00 :00 us route 2 unit/mL (3 times per mL) day in the subcutaneou morning s pen and evening gabapentin 2020- No 1{table Q8H take 1 A ccess 800 mg 07-04-20 t} tablet by [facility] tablet 00:00: 00:00 oral route 00 :00 3 times every day carvedilol 2020- No take 1 Ac[facility] ss 25 mg 07-04-20 tablet (25 Health tablet 00:00: 00:00 mg) by 00 :00 oral route 2 times per day with food clopidogrel 2020- No take 1 Acc ess 75 mg 07-04 05-20 tablet (75 Health tablet 00:00: 00:00 mg) by 00 :00 oral route once daily atorvastati 2020- No take 1 Acc ess n 80 mg 07-04 05-20 tablet by [facility] tablet 00:00: 00:00 Oral route 00 :00 1 time per day amlodipine 2020- No take 1 Acce ss 5 mg tablet 07-04-20 tablet (5 [facility] 00:00: 00:00 mg) by 00 :00 oral route once daily isosorbide 2020- No take 1 [facility] mononitrate 07-04 05-20 tablet (60 [facility] 60 mg 00:00: 00:00 mg) by tablet,exte 00 :00 oral route nded once daily release 24 in the hr morning Humalog 2020- No inject Access KwikPen 07-04 05-20 5-10 Units [facility] (U-100) 00:00: 00:00 by Insulin 100 00 :00 Subcutaneo unit/mL us route 3 subcutaneou times per s day on a sliding scale three times a day before meals Levemir 2020- No inject 50 [facility] ss FlexTouch 07-04 05-20 Units by [facility] U-100 00:00: [...] No take 1 Acce ss 25 mg 07-04-20 tablet (25 Health tablet 00:00: 00:00 mg) by 00 :00 oral route 2 times per day with food clopidogrel 2020- No take 1 Acc ess 75 mg 07-04 05-20 tablet (75 Health tablet 00:00: 00:00 mg) by 00 :00 oral route once daily atorvastati 2020- No take 1 Acc ess n 80 mg 07-04 05-20 tablet by [facility] tablet 00:00: 00:00 Oral route 00 :00 1 time per day amlodipine 2020- No take 1 Acce ss 5 mg tablet 07-04-20 tablet (5 [facility] 00:00: 00:00 mg) by 00 :00 oral route once daily isosorbide 2020- No take 1 [facility] ss mononitrate 07-04 05-20 tablet (60 [facility] 60 mg 00:00: 00:00 mg) by tablet,exte 00 :00 oral route nded once daily release 24 in the hr morning Humalog 2020- No inject Access KwikPen 07-04 05-20 5-10 Units [facility]alt [facility] (U-100) 00:00: 00:00 by Insulin 100 00 :00 Subcutaneo unit/mL us route 3 subcutaneou times per s day on a sliding scale three times a day before meals Levemir 2020- No inject 50 [facility] ss FlexTouch 07-04 05-20 Units by [facility] U-100 00:00: [...] No take 1 Acce ss 25 mg 07-04-20 tablet (25 Health tablet 00:00: 00:00 mg) by 00 :00 oral route 2 times per day with food clopidogrel 2020- No take 1 Acc ess 75 mg 07-04 05-20 tablet (75 Health tablet 00:00: 00:00 mg) by 00 :00 oral route once daily atorvastati 2020- No take 1 Acc ess n 80 mg 07-04 05-20 tablet by Health tablet 00:00: 00:00 Oral route 00 :00 1 time per day amlodipine 2020- No take 1 Acce ss 5 mg tablet 07-04-20 tablet (5 [facility] 00:00: 00:00 mg) by 00 :00 oral route once daily isosorbide 2020- No take 1 Acce ss mononitrate 07-04 05-20 tablet (60 [facility] 60 mg 00:00: 00:00 mg) by tablet,exte 00 :00 oral route nded once daily release 24 in the hr morning Humalog 2020- No inject Access KwikPen 07-04 05-20 5-10 Units [facility]alt [facility] (U-100) 00:00: 00:00 by Insulin 100 00 :00 Subcutaneo unit/mL us route 3 subcutaneou times per s day on a sliding scale three times a day before meals Levemir 2020- No inject 50 Acce ss FlexTouch 07-04 05-20 Units by [facility] U-100 00:00: [...] No take 1 Acce ss 25 mg 07-04-20 tablet (25 Health tablet 00:00: 00:00 mg) by 00 :00 oral route 2 times per day with food clopidogrel 2020- No take 1 Acc ess 75 mg 07-04 05-20 tablet (75 Health tablet 00:00: 00:00 mg) by 00 :00 oral route once daily atorvastati 2020- No take 1 Acc ess n 80 mg 07-04 05-20 tablet by Health tablet 00:00: 00:00 Oral route 00 :00 1 time per day amlodipine 2020- No take 1 Acce ss 5 mg tablet 07-04-20 tablet (5 [facility] 00:00: 00:00 mg) by 00 :00 oral route once daily isosorbide 2020- No take 1 Acce ss mononitrate 07-04 05-20 tablet (60 [facility] ER 60 mg 00:00: 00:00 mg) by tablet,exte 00 :00 oral route nded once daily release 24 in the hr morning Humalog 2020- No inject Access KwikPen 07-04 05-20 5-10 Units [facility]alt [facility] (U-100) 00:00: 00:00 by Insulin 100 00 :00 Subcutaneo unit/mL us route 3 subcutaneou times per s day on a sliding scale three times a day before meals Levemir 2020- No inject 50 Acce ss FlexTouch 07-04 05-20 Units by [facility] U-100 00:00: [...] No take 1 Acce ss 25 mg 07-04-20 tablet (25 Health tablet 00:00: 00:00 mg) by 00 :00 oral route 2 times per day with food clopidogrel 2020- No take 1 Acc ess 75 mg 07-04 05-20 tablet (75 Health tablet 00:00: 00:00 mg) by 00 :00 oral route once daily atorvastati 2020- No take 1 Acc ess n 80 mg 07-04 05-20 tablet by Health tablet 00:00: 00:00 Oral route 00 :00 1 time per day amlodipine 2020- No take 1 Acce ss 5 mg tablet 07-04-20 tablet (5 [facility] 00:00: 00:00 mg) by 00 :00 oral route once daily isosorbide 2020- No take 1 Acce ss mononitrate 07-04 05-20 tablet (60 [facility] ER 60 mg 00:00: 00:00 mg) by tablet,exte 00 :00 oral route nded once daily release 24 in the hr morning Humalog 2020- No inject Access KwikPen 07-04 05-20 5-10 Units [facility]alt [facility] (U-100) 00:00: 00:00 by Insulin 100 00 :00 Subcutaneo unit/mL us route 3 subcutaneou times per s day on a sliding scale three times a day before meals Levemir 2020- No inject 50 Acce ss FlexTouch 07-04 05-20 Units by [facility] U-100 00:00: [...] No take 1 Acce ss 25 mg 07-04-20 tablet (25 Health tablet 00:00: 00:00 mg) by 00 :00 oral route 2 times per day with food clopidogrel 2020- No take 1 Acc ess 75 mg 07-04 05-20 tablet (75 [facility] tablet 00:00: 00:00 mg) by 00 :00 oral route once daily atorvastati 2020- No take 1 Acc ess n 80 mg 07-04 05-20 tablet by [facility] tablet 00:00: 00:00 Oral route 00 :00 1 time per day amlodipine 2020- No take 1 Acce ss 5 mg tablet 07-04-20 tablet (5 [facility] 00:00: 00:00 mg) by 00 :00 oral route once daily isosorbide 2020- No take 1 Acce ss mononitrate 07-04 05-20 tablet (60 [facility] 60 mg 00:00: 00:00 mg) by tablet,exte 00 :00 oral route nded once daily release 24 in the hr morning Humalog 2020- No inject Access KwikPen 07-04 05-20 5-10 Units [facility]alt [facility] (U-100) 00:00: 00:00 by Insulin 100 00 :00 Subcutaneo unit/mL us route 3 subcutaneou times per s day on a sliding scale three times a day before meals Levemir 2020- No inject 50 Acce ss FlexTouch 07-04 05-20 Units by [facility] U-100 00:00: [...] No take 1 Acce ss 25 mg 07-04-20 tablet (25 Health tablet 00:00: 00:00 mg) by 00 :00 oral route 2 times per day with food clopidogrel 2020- No take 1 Acc ess 75 mg 07-04 05-20 tablet (75 [facility] tablet 00:00: 00:00 mg) by 00 :00 oral route once daily atorvastati 2020- No take 1 Acc ess n 80 mg 07-04 05-20 tablet by Health tablet 00:00: 00:00 Oral route 00 :00 1 time per day amlodipine 2020- No take 1 Acce ss 5 mg tablet 07-04-20 tablet (5 [facility] 00:00: 00:00 mg) by 00 :00 oral route once daily isosorbide 2020- No take 1 Acce ss mononitrate 07-04 05-20 tablet (60 [facility] 60 mg 00:00: 00:00 mg) by tablet,exte 00 :00 oral route nded once daily release 24 in the hr morning Humalog 2020- No inject Access KwikPen 07-04 05-20 5-10 Units [facility] (U-100) 00:00: 00:00 by Insulin 100 00 :00 Subcutaneo unit/mL us route 3 subcutaneou times per s day on a sliding scale three times a day before meals Levemir 2020- No inject 50 Acce ss FlexTouch 07-04 05-20 Units by [facility] U-100 00:00: [...] No take 1 Acce ss 25 mg 07-04-20 tablet (25 Health tablet 00:00: 00:00 mg) by 00 :00 oral route 2 times per day with food clopidogrel 2020- No take 1 Acc ess 75 mg 07-04 05-20 tablet (75 Health tablet 00:00: 00:00 mg) by 00 :00 oral route once daily atorvastati 2020- No take 1 Acc ess n 80 mg 07-04 05-20 tablet by Health tablet 00:00: 00:00 Oral route 00 :00 1 time per day amlodipine 2020- No take 1 Acce ss 5 mg tablet 07-04-20 tablet (5 [facility] 00:00: 00:00 mg) by 00 :00 oral route once daily isosorbide 2020- No take 1 Acce ss mononitrate 07-04 05-20 tablet (60 [facility] 60 mg 00:00: 00:00 mg) by tablet,exte 00 :00 oral route nded once daily release 24 in the hr morning Humalog 2020- No inject Access KwikPen 07-04 05-20 5-10 Units [facility] (U-100) 00:00: 00:00 by Insulin 100 00 :00 Subcutaneo unit/mL us route 3 subcutaneou times per s day on a sliding scale three times a day before meals Levemir 2020- No inject 50 Ac[facility] ss FlexTouch 07-04 05-20 Units by [facility] U-100 00:00: [...] No take 1 Acce ss 25 mg 07-04-20 tablet (25 Health tablet 00:00: 00:00 mg) by 00 :00 oral route 2 times per day with food clopidogrel 2020- No take 1 Acc ess 75 mg 07-04 05-20 tablet (75 Health tablet 00:00: 00:00 mg) by 00 :00 oral route once daily atorvastati 2020- No take 1 Acc ess n 80 mg 07-04 05-20 tablet by Health tablet 00:00: 00:00 Oral route 00 :00 1 time per day amlodipine 2020- No take 1 Acce ss 5 mg tablet 07-04-20 tablet (5 [facility] 00:00: 00:00 mg) by 00 :00 oral route once daily isosorbide 2020- No take 1 Acce ss mononitrate 07-04 05-20 tablet (60 [facility] 60 mg 00:00: 00:00 mg) by tablet,exte 00 :00 oral route nded once daily release 24 in the hr morning Humalog 2020- No inject Access KwikPen 07-04 05-20 5-10 Units [facility]alt [facility] (U-100) 00:00: 00:00 by Insulin 100 00 :00 Subcutaneo unit/mL us route 3 subcutaneou times per s day on a sliding scale three times a day before meals Levemir 2020- No inject 50 Ac[facility] ss FlexTouch 07-04 05-20 Units by [facility] U-100 00:00: [...] No take 1 Acce ss 25 mg 07-04-20 tablet (25 [facility] tablet 00:00: 00:00 mg) by 00 :00 oral route 2 times per day with food clopidogrel 2020- No take 1 Acc ess 75 mg 07-04 05-20 tablet (75 Health tablet 00:00: 00:00 mg) by 00 :00 oral route once daily atorvastati 2020- No take 1 Acc ess n 80 mg 07-04 05-20 tablet by Health tablet 00:00: 00:00 Oral route 00 :00 1 time per day amlodipine 2020- No take 1 Acce ss 5 mg tablet 07-04-20 tablet (5 [facility] 00:00: 00:00 mg) by 00 :00 oral route once daily isosorbide 2020- No take 1 Acce ss mononitrate 07-04 05-20 tablet (60 [facility] 60 mg 00:00: 00:00 mg) by tablet,exte 00 :00 oral route nded once daily release 24 in the hr morning Humalog 2020- No inject Access KwikPen 07-04 05-20 5-10 Units [facility]alt [facility] (U-100) 00:00: 00:00 by Insulin 100 00 :00 Subcutaneo unit/mL us route 3 subcutaneou times per s day on a sliding scale three times a day before meals Levemir 2020- No inject 50 Ac[facility] ss FlexTouch 07-04 05-20 Units by [facility] U-100 00:00: [...] No take 1 Acce ss 25 mg 07-04-20 tablet (25 [facility] tablet 00:00: 00:00 mg) by 00 :00 oral route 2 times per day with food clopidogrel 2020- No take 1 Acc ess 75 mg 07-04 05-20 tablet (75 Health tablet 00:00: 00:00 mg) by 00 :00 oral route once daily atorvastati 2020- No take 1 Acc ess n 80 mg 07-04 05-20 tablet by Health tablet 00:00: 00:00 Oral route 00 :00 1 time per day amlodipine 2020- No take 1 Acce ss 5 mg tablet 07-04-20 tablet (5 [facility]th 00:00: 00:00 mg) by 00 :00 oral route once daily isosorbide 2020- No take 1 Acce ss mononitrate -08 05-20 tablet (60 [facility] ER 60 [...] 2020- No inject 50 [facility] ss FlexTouch 07-04 05-20 Units by [facility] U-100 00:00: [...] day to cleansed affected area Santyl 250 2022020- No Q1D apply by Ac cess unit/gram 04-26 05-20 topical Health topical 00:00: 00:00 route ointment 00 :00 every day to cleansed affected area insulin 2020- No 50U Q.5D Inject [address] [facility]ir 04-06 Units [facility] (LEVEMIR) 08:46: 00:00 subcutaneo M edical 100 unit/mL 05 :00 usly 2 [place] injection (two) times daily . metOLazone 2020- No 2.5mg QD Take 2.[address] [facility] (ZAROXOLYN) 04-06 mg by [facility] - 2.5 MG 08:46: 00:00 mouth Medical tablet 05 :00 daily. [place] amLODIPine 2020- No 5mg QD Take [address] [facility] (NORVASC) 04-06 by mouth [facility] - 10 MG 08:46: 00:00 daily. Medical tablet 05 :00 [place] lisinopriL 2020- No 40mg Q.5D Take [address] [facility] (PRINIVIL,Z 04-06 by mouth 2 [facility] - ESTRIL) 40 08:46: 00:00 (two) Medic al MG tablet 05 :00 times Center daily. insulin 2020- No 50U Q.5D Inject [address] [facility] detemir 04-06 Units [facility] (LEVEMIR) 08:46: 00:00 subcutaneo M edical 100 unit/mL 05 :00 usly 2 [place] injection (two) times daily . metOLazone 2020- No 2.5mg QD Take 2.[address] [facility] (ZAROXOLYN) 04-06 mg by [facility] - 2.5 MG 08:46: 00:00 mouth Medical tablet 05 :00 daily. [place] amLODIPine 2020- No 5mg QD Take [address] [facility] (NORVASC) 04-06 by mouth [facility] - 10 MG 08:46: 00:00 daily. Medical tablet 05 :00 [place] lisinopriL 2020- No 40mg Q.5D Take 40 [...] 00:00 mouth Medical tablet 05 :00 daily. [place] amLODIPine 2020- No 5mg QD Take [address] [facility] (NORVASC) 04-06 by mouth [facility] - 10 MG 08:46: 00:00 daily. Medical tablet 05 :00 [place] lisinopriL 2020- No 40mg Q.5D Take 40 [...] Q.5D Inject [facility] U-100 00:00: subcutaneo Medica l (LEVEMIR) 00 usly 2 Center 100 unit/mL (two) injection times daily. amLODIPine Yes 5mg QD Take 1 [facility] ([facility]VASC[facility] 5 04-06 tablet (5 Lo es - MG tablet 00:00: mg total) Med ical 00 by mouth Center daily. collagenase Yes Use for [facility] (SANTYL) - daily [facility] - 250 units/g 00:00: dressing Me dical ointment 00 changes of Cente r foot wound.. sevelamer Yes 800mg Take 1 [facility] (RENVELA) 04-06 tablet [facility] - 800 mg 00:00: (800 [...] Q.5D Inject 25 [facility]- [facility] U-100 00:00: subcutaneo Medica [...] by Center mouth every other day. HYDROcodone 2020-0 2021- No 1{tbl} Take [address] [facility] -acetaminop -12 03-04 tablet by Siddhartha robertson (NORCO 00:00: 00:00 mouth Medic al 5-325) 00 :00 every 6 Center 5-325 mg (six) per tablet hours as needed for Pain. Max Daily Amount: 4 tablets HYDROcodone 2020- No 1{tbl} Take [address] -acetaminop 1-12 03-04 tablet by Siddhartha robertson (NORCO 00:00: 00:00 mouth Medic al 5-325) 00 :00 every 6 Center 5-325 mg (six) per tablet hours as needed for Pain. Max Daily Amount: 4 tablets HYDROcodone 2020- No 1{tbl} Take [address] -acetaminop -12 03- tablet by Siddhartha robertson (NORCO 00:00: 00:00 mouth Medic al 5-325) 00 :00 every 6 Center 5-325 mg (six) per tablet hours as needed for Pain. Max Daily Amount: 4 tablets HYDROcodone 2020- No 1{tbl} Take [address] -acetaminop -12 03-04 tablet by Siddhartha robertson (NORCO 00:00: 00:00 mouth Medic al 5-325) 00 :00 every 6 Center 5-325 mg (six) per tablet hours as needed for Pain. Max Daily Amount: 4 tablets HYDROcodone 2020- No 1{tbl} Take [address] -acetaminop -12 03-04 tablet by Siddhartha robertson (NORCO 00:00: 00:00 mouth Medic al 5-325) 00 :00 every 6 Center 5-325 mg (six) per tablet hours as needed for Pain. Max Daily Amount: 4 tablets HYDROcodone 2020-2020- No 1{tbl} Take [address] -acetaminop -12 03-04 tablet by Siddhartha robertson (NORCO 00:00: 00:00 mouth Medic al 5-325) 00 :00 every 6 Center 5-325 mg (six) per tablet hours as needed for Pain. Max Daily Amount: 4 tablets HYDROcodone 2020- No 1{tbl} Take [address] -acetaminop 1-12 03-04 tablet by Siddhartha robertson (NORCO 00:00: 00:00 mouth Medic al 5-325) 00 :00 every 6 Center 5-325 mg (six) per tablet hours as needed for Pain. Max Daily Amount: 4 tablets cefePIME 1- No 2g Q24H Inject [address] [facility] (MAXIPIME) 04-06 intravenou Siddhartha kes - MBP 2g in 00:00: 23:59 sly daily Me dical 100 mL NS 00 :00 for 41 Center days. doxycycline 1- No 100mg Take [address] [facility] (MONODOX) 04-06 capsule [facility] - 100 MG 00:00: 23:59 (100 mg Medical capsule 00 :00 total) by Center mouth every 12 (twelve) hours for 41 days. cefePIME 1- No 2g Q24H Inject 2 g [facility] [...] 12 (twelve) hours for 41 days. cefePIME 1- No 2g Q24H Inject 2 g [facility] [...] 12 (twelve) hours for 41 days. traMADoL 2019-03- No 50mg Take [address] [facility] (ULTRAM) 50 05-21 tablet (50 [facility] - mg tablet 00:00: 00:00 mg total) Me dical 00 :00 by mouth Center every 6 (six) hours as needed for Pain for up to 10 days. Max Daily Amount: 200 mg traMADoL 2019-03- No 50mg Take [address] [facility] (ULTRAM) 50 05-21- tablet (50 [facility] - mg tablet [...] 50mg Take [address] [facility] (ULTRAM) 50 05-21- tablet (50 [facility] - mg tablet 00:00: 00:00 mg total) Me dical 00 :00 by mouth Center every 6 (six) hours as needed for Pain for up to 10 days. Max Daily Amount: 200 mg traMADoL 2019-03- No 50mg Take [address] [facility] (ULTRAM) 50 05-21- tablet (50 [facility] - mg tablet 00:00: 00:00 mg total) Me dical 00 :00 by mouth Center every 6 (six) hours as needed for Pain for up to 10 days. Max Daily Amount: 200 mg clindamycin 2019-03 No 300mg [id number] Take [address] [facility] (CLEOCIN) 2-23 12-30 [id number] capsule [facility] - 300 MG 00:00: 23:59 3D (300 mg Medical capsule 00 :00 total) by Center mouth 3 (three) times daily for 7 days. clindamycin 2019-03- No 300mg Q.[id number] Take [address] [facility] (CLEOCIN) 05-21 [id number] [facility] - 300 MG 00:00: 23:59 3D (300 mg Medical capsule 00 :00 total) by Center mouth 3 (three) times daily for 7 days. clindamycin 2019-03- No 300mg Q.[id number] Take [address] [facility] (CLEOCIN) 05-21 [id number] [facility] - 300 MG 00:00: 23:59 3D (300 mg Medical capsule 00 :00 total) by Center mouth 3 (three) times daily for 7 days. clindamycin 2019-03- No 300mg Q.[id number] Take [address] [facility] (CLEOCIN) 05-21 [id number] [facility] - 300 MG 00:00: 23:59 3D (300 mg Medical capsule 00 :00 total) by Center mouth 3 (three) times daily for 7 days. clindamycin 2019-03- No 300mg Q.[id number] Take [address] [facility] (CLEOCIN) 05-21 [id number] [facility] - 300 MG 00:00: 23:59 3D (300 mg Medical capsule 00 :00 total) by Center mouth 3 (three) times daily for 7 days. clindamycin 2019-03- No 300mg Q.[id number] Take [address] [facility] (CLEOCIN) 05-21 [id number] [facility] - 300 MG 00:00: 23:59 3D (300 mg Medical capsule 00 :00 total) by Center mouth 3 (three) times daily for 7 days. clindamycin 2019-03- No 300mg [id number] Take [address] [facility] (CLEOCIN) 05-21 [id number] [facility] 300 MG 00:00: 23:59 3D (300 mg Medical capsule 00 :00 total) by Center mouth 3 (three) times daily for 7 days. gabapentin 2019-03 Yes Take by [facility] (NEURONTIN) 2-09 [facility]. [facility] - 800 MG 00:00: Medical tablet 00 Center lisinopriL 2019-03 Yes [facility] (PR[facility] 2-09 tablet (40 Siddhartha kes - ESTRIL) 40 00:00: mg) by Medic al MG tablet 00 oral route Cent er once daily gabapentin 2019-03 Yes Take by [facility] (NEURONTIN) 2-09 [facility]. [facility] - 800 MG 00:00: Medical tablet 00 Center lisinopriL 2019-03 Yes [facility] ([facility],Z 2-09 tablet (40 Siddhartha kes - ESTRIL) 40 00:00: mg) by Medic al MG tablet 00 oral route Cent er once daily gabapentin 2019-03 Yes Take by [facility] (NEURONTIN) 2-09 mouth. [facility] - 800 MG 00:00: Medical tablet 00 Center lisinopriL 2019-03 Yes [facility] ([facility],Z 2-09 tablet (40 Siddhartha kes - ESTRIL) 40 00:00: mg) by Medic al MG tablet 00 oral route Cent er once daily gabapentin 2019-03 Yes Take by [facility] (NEURONTIN) 2-09 mouth. [facility] - 800 MG 00:00: Medical tablet 00 Center lisinopriL 2019-03 Yes [facility] ([facility],Z 2-09 tablet (40 Siddhartha kes - ESTRIL) 40 00:00: mg) by Medic al MG tablet 00 oral route Cent er once daily gabapentin 2019-03 Yes Take by [facility] (NEURONTIN) 2-09 mouth. [facility] - 800 MG 00:00: Medical tablet 00 Center lisinopriL 2019-03 Yes [facility] (PRINIV[facility],Z 2-09 tablet (40 Siddhartha kes - ESTRIL) 40 00:00: mg) by Medic al MG tablet 00 oral route Cent er once daily gabapentin 2019-03 Yes Take by [facility] (NEURONTIN) 2-09 mouth. [facility] - 800 MG 00:00: Medical tablet 00 Center lisinopriL 2019-03 Yes [facility] ([facility],Z 2-09 tablet (40 Siddhartha kes - ESTRIL) 40 00:00: mg) by Medic al MG tablet 00 oral route Cent er once daily gabapentin 2019-03 Yes Take by [facility] (NEURONTIN) 2-09 mouth. [facility] - 800 MG 00:00: Medical tablet 00 Center lisinopriL 2019-03 Yes [facility] ([facility],Z 2-09 tablet (40 Siddhartha kes - ESTRIL) 40 00:00: mg) by Medic al MG tablet 00 oral route Cent er once daily bumetanide 2019-03 No take 1 [...] 2019-03- No inject 50 kit=boxes Access FlexTouch 2-09 04-08 Units by for 3 Heal th U-100 [...] before meals isosorbide 2019-03 No take 1 [facility] mononitrate 05-07 tablet (60 H ealth ER 60 mg 00:00: 00:00 mg) by tablet,exte 00 :00 oral route nded once daily release 24 in the hr morning Levemir 2019-03 inject 50 kit=boxes Access FlexTouch 05-07 Units [...] No take 1 Acc ess 75 mg 2-09 04-08 tablet (75 Health tablet 00:00: 00:00 mg) [...] (3 times per mL) day in the [facility] morning s pen and evening bumetanide 2019-03- [...] 00 :00 oral route once daily lisinopril 2019-03 No take 1 [facility] 40 mg 05-07 tablet (40 Health tablet 00:00: 00:00 mg) by 00 :00 oral route once daily metolazone 2019-03 No take 1 [facility] 5 mg tablet 05-07 tablet (5 He alth 00:00: 00:00 mg) by 00 :00 oral route once daily lisinopril 2019-03 No take 1 [facility] 40 mg 05-07 tablet (40 Health tablet 00:00: 00:00 mg) by 00 :00 oral route once daily metolazone 2019-03 No take 1 [facility] 5 mg tablet 05-07 tablet (5 He alth 00:00: 00:00 mg) by 00 :00 oral route once daily lisinopril 2019-03 No take 1 [facility] 40 mg [...] 00 :00 oral route once daily metolazone 2019-03 No take 1 [facility] 5 mg tablet 05-07 tablet (5 He alth 00:00: 00:00 mg) by 00 :00 oral route once daily lisinopril 2019-03 No take 1 [facility] 40 mg [...] [address] [facility] azole-trime 12-0115 rimetho tablet [facility] thoprim 00:00: 23:59 prim} (160 mg of Me dical (BACTRIM 00 :00 trimethopr Cente r DS) 800-160 im total) mg per by mouth 2 tablet (two) times daily for 10 days smx-tmp DS (BACTRIM) 800-160 mg tabs (1tab q12 D10). sulfamethox 2020-0 2020- No 160mg{t Q.5D Take [address] [facility] azole-trime 12-01 rimetho tablet [facility] 00:00: 23:59 prim} (160 mg of Me dical (BACTRIM 00 :00 trimethopr Cente r DS) 800-160 im total) mg per by mouth 2 tablet (two) times daily for 10 days smx-tmp DS (BACTRIM) 800-160 mg tabs (1tab q12 D10). sulfamethox 2020-0 2020- No 160mg{t Q.5D Take [address] [facility] azole-trime 12-0115 rimetho tablet [facility] - thoprim 00:00: 23:59 prim} (160 mg of Me dical (BACTRIM 00 :00 trimethopr Cente r DS) 800-160 im total) mg per by mouth 2 tablet (two) times daily for 10 days smx-tmp DS (BACTRIM) 800-160 mg tabs (1tab q12 D10). sulfamethox 2020-0 2020- No 160mg{t Q.5D Take [address] [facility] azole-trime -15 rimetho tablet Siddhartha kes - thoprim 00:00: 23:59 prim} (160 mg of Me dical (BACTRIM 00 :00 trimethopr Cente r DS) 800-160 im total) mg per by mouth 2 tablet (two) times daily for 10 days smx-tmp DS (BACTRIM) 800-160 mg tabs (1tab q12 D10). sulfamethox No 160mg{t Q.5D Take [address] [facility] azole-trime 12-01 rimetho tablet Siddhartha ibarraoprim 00:00: 23:59 prim} (160 mg of Me dical (BACTRIM 00 :00 trimethopr Cente r DS) 800-160 im total) mg per by mouth 2 tablet (two) times daily for 10 days smx-tmp DS (BACTRIM) 800-160 mg tabs (1tab q12 D10). HYDROcodone 2019- No 1{tbl} Take [address] -acetaminop 12-01 tablet by Siddhartha robertson (MARTIN 00:00: 23:59 mouth Medic al 5-325) 00 [...] days. Max Daily Amount: 4 tablets amlodipine 2020-0 No take 1 Acces s 5 mg tablet 8-13 tablet (5 Hea lth 00:00: mg) by 00 oral route once daily atorvastati No take 1 [facility] n 80 mg 8-13 tablet by Health tablet 00:00: Oral route 00 1 time per day bumetanide 0 No take 1 Acces s 1 mg [...] route 00 3 times every day Humalog No inject Access KwikPen 8-13 5-10 Units [...] 50 Acces s FlexTouch 8-13 Units by [employer] U-100 00:00: Subcutaneo Insulin 100 00 us route 2 unit/mL (3 times per mL) day in the subcutaneou morning s pen and evening lisinopril No take 1 Acces s 40 mg 8-13 tablet (40 Health tablet 00:00: mg) by 00 oral route once daily metolazone No take 1 Acces s 5 mg tablet 8-13 tablet (5 Hea lth 00:00: mg) by 00 oral route once daily amlodipine 0 2020- No take 1 [facility] 5 mg tablet 8-13 12-09 tablet (5 He alth 00:00: 00:00 mg) [...] 50 [facility] Flex[facility]:00 Subcutaneo Insulin 100 00 :00 us route 2 unit/mL (3 times per mL[facility] lisinopril No [...] :00 3 times every day Humalog 2019- inject Access KwikPen 11-08 5-10 Units Healt [...] times a day before meals isosorbide 2019- take 1 [facility] mononitrate 11-08 tablet [...] subcutaneou morning s pen and evening lisinopril 2020-0 2020- No take 1 Acce [...] release 24 in the hr morning Levemir 2020-0 2020- No inject 50 [facility] FlexTouch 11-08 [...] (3 times per mL) day in the [facility] morning s pen and evening lisinopril take [...] (3 times per mL) day in the [facility] morning s pen and evening lisinopril 2020- No take 1 [facility] 40 mg 11-08 tablet (40 Health tablet 00:00: 00:00 mg) by 00 :00 oral route once daily metolazone 2020- No take 1 [facility] 5 mg tablet 11-08 tablet (5 He alth 00:00: 00:00 mg) by 00 :00 oral route once daily gabapentin 2019-0 2020- No 1{table Q8H take 1 A ccess 800 mg 8- 08-13 t} tablet by Health tablet 00:00: [...] 00 :00 3 times every day bumetanide 2020-0 2020- No take 1 [facility] 1 mg tablet -05 06-13 tablet (1 He alth 00:00: 00:00 mg) by 00 :00 oral route 2 times per day bumetanide 2020-0 2020- No take 1 [facility] 1 mg tablet -05 06-13 tablet (1 He alth 00:00: 00:00 mg) by 00 :00 oral route 2 times per day bumetanide 2020-0 2020- No take 1 [facility] 1 mg tablet 09-2713 tablet (1 He alth 00:00: 00:00 mg) by 00 :00 oral route 2 times per day bumetanide 2019-0 2020- No take 1 [facility] 1 mg tablet -05 06- tablet (1 He alth 00:00: 00:00 mg) by 00 :00 oral route 2 times per day bumetanide 2019-0 2020- No take 1 [facility] 1 mg tablet -05 06- tablet (1 He alth 00:00: 00:00 mg) by 00 :00 oral route 2 times per day bumetanide 2019-0 2019- No take 1 [facility] 1 mg tablet -05 06- tablet (1 He alth 00:00: 00:00 mg) by 00 :00 oral route 2 times per day bumetanide 2019-0 2019- No take 1 [facility] 1 mg tablet -11-08 tablet (1 He alth 00:00: 00:00 mg) by 00 :00 oral route 2 times per day bumetanide 2019-0 2019- No take 1 [facility] 1 mg tablet 09-27 tablet (1 He alth 00:00: 00:00 mg) by 00 :00 oral route 2 times per day bumetanide 2019-0 2020- No take 1 [facility] 1 mg tablet -11-08 tablet (1 He alth 00:00: 00:00 mg) by 00 :00 oral route 2 times per day bumetanide 2019-0 2020- No take 1 [facility] 1 mg tablet -05 06- tablet (1 He alth 00:00: 00:00 mg) by 00 :00 oral route 2 times per day bumetanide 2019-0 2020- No take 1 [facility] 1 mg tablet -11-08 tablet (1 He alth 00:00: 00:00 mg) by 00 :00 oral route 2 times per day bumetanide 2019-0 2020- No take 1 [facility] 1 mg tablet -11-08 tablet (1 He alth 00:00: 00:00 mg) by 00 :00 oral route 2 times per day bumetanide 2019-0 2020- No take 1 [facility] 1 mg tablet -05 06- tablet (1 He alth 00:00: 00:00 mg) [...] per day Levemir 2019-0 2020- No inject 50 [facility] FlexTouch 07-03 08-13 Units by Healt h U-100 00:00: 00:00 Subcutaneo Insulin 100 00 :00 us route 2 unit/mL (3 times per mL) day in the subcutaneou morning s pen and evening Levemir 2019-0 2020- No inject 50 [facility] FlexTouch 07-03 08-13 Units by Healt h U-100 00:00: 00:00 Subcutaneo Insulin 100 00 :00 us route 2 unit/mL (3 times per mL) day in the subcutaneou morning s pen and evening Levemir 2019-0 2020- No inject 50 [facility] ss FlexTouch 07-03 08-13 Units by Healt h U-100 00:00: 00:00 Subcutaneo Insulin 100 00 :00 us route 2 unit/mL (3 times per mL) day in the subcutaneou morning s pen and evening Levemir 2020-0 2020- No inject 50 Acce [facility] FlexTouch 407 08-13 Units by Healt h U-100 00:00: [...] 2020- No inject 50 [facility] ss FlexTouch 4 08-13 Units by Healt h U-100 00:00: 00:00 Subcutaneo Insulin 100 00 :00 us route 2 unit/mL (3 times per mL) day in the subcutaneou morning s pen and evening Levemir 2020-0 2020- No inject 50 [facility] FlexTouch 4 08-13 Units by Healt h U-100 00:00: [...] evening Humalog 2019- No inject Access KwikPen 07-02 [...] take 1 [facility] 5 mg tablet 4-06 08-13 tablet (5 He alth 00:00: 00:00 mg) [...] release 24 in the hr morning lisinopril No take 1 [facility] 40 [...] 00 :00 oral route once daily isosorbide 2020-0 2020- No take 1 [facility] mononitrate 07-02 tablet (60 H ealth ER 60 mg 00:00: 00:00 mg) by tablet,exte 00 :00 oral route nded once daily release 24 in the hr morning lisinopril No take 1 [facility]ce [facility] 40 [...] per day bumetanide 2019-2019- No take 1 [facility] 1 mg tablet 07-02 tablet (1 He alth 00:00: 00:00 mg) by 00 :00 oral route 2 times per day bumetanide 2019-2019- No take 1 [facility] 1 mg tablet 07-02 tablet (1 He alth 00:00: 00:00 mg) by 00 :00 oral route 2 times per day bumetanide 2019-2019- No take 1 [facility] 1 mg tablet 07-02 tablet (1 He alth 00:00: 00:00 mg) by 00 :00 oral route 2 times per day bumetanide 2019-2019- No take 1 [facility] 1 mg tablet 07-02 tablet (1 He alth 00:00: 00:00 mg) by 00 :00 oral route 2 times per day bumetanide 2019-2019- No take 1 [facility] 1 mg tablet 07-02 tablet (1 He alth 00:00: 00:00 mg) by 00 :00 oral route 2 times per day bumetanide 2019-2019- No take 1 [facility] 1 mg tablet 07-02 tablet (1 He alth 00:00: 00:00 mg) by 00 :00 oral route 2 times per day bumetanide 2019-2019- No take 1 [facility] 1 mg tablet 07-02 tablet (1 He alth 00:00: 00:00 mg) by 00 :00 oral route 2 times per day bumetanide 2019-2019- No take 1 [facility] 1 mg tablet 07-02 tablet (1 He alth 00:00: 00:00 mg) by 00 :00 oral route 2 times per day bumetanide 2019-2019- No take 1 [facility] 1 mg tablet 07-02 tablet (1 He alth 00:00: 00:00 mg) by 00 :00 oral route 2 times per day bumetanide 2019-2019- No take 1 [facility] 1 mg tablet 07-02 tablet (1 He alth 00:00: 00:00 mg) by 00 :00 oral route 2 times per day bumetanide 2019-2019- No take 1 [facility] 1 mg [...] 2020- No inject 34 [facility] FlexTouch 07-02 04-07 Units by Healt h U-100 00:00: [...] 2020- No inject 34 [facility] FlexTouch 4- 04-07 Units by Healt h U-100 00:00: [...] oral route 2 times per day metolazone 2019- No take 1 [facility] 5 mg tablet 04-04 tablet (5 He alth 00:00: 00:00 mg) by 00 :00 oral route once daily Levemir 2019- No inject 34 [facility] FlexTouch 04-04-06 Units by Healt h U-100 00:00: 00:00 Subcutaneo Insulin 100 00 :00 us route 2 unit/mL (3 times per mL) day in the subcutaneou morning s pen and evening Humalog 2019- No inject Access KwikPen 04-04 04-06 5-10 Units Healt h (U-100) 00:00: 00:00 [...] 2019- take 1 [facility] 40 mg 04-04 [...] carvedilol take 1 [facility] 25 mg 1-07 04-06 tablet (25 Health tablet 00:00: 00:00 mg) [...] 2019- take 1 [facility] 40 mg 04-04 [...] 2019- take 1 [facility] 40 mg 04-04 [...] 2019- take 1 [facility] 40 mg 04-04 [...] 2019- take 1 [facility] 40 mg 04-04 [...] Q12H take 1 A ccess 40 mg 04-04-11 t} tablet by Health tablet 00:00: 00:00 oral route 00 :00 2 times every day furosemide 2020-0 2020- No 1{table Q12H take 1 A ccess 40 mg 1-11 t} tablet by Health tablet 00:00: 00:00 oral route 00 :00 2 times every day furosemide 2020-0 2020- No 1{table Q12H take 1 A ccess 40 mg 04-04-11 t} tablet by Health tablet 00:00: 00:00 oral route 00 :00 2 times every day furosemide 2020-0 2020- No 1{table Q12H take 1 A ccess 40 mg -09 27- t} tablet by Health tablet 00:00: 00:00 oral route 00 :00 2 times every day furosemide 2020-0 2020- No 1{table Q12H take 1 A ccess 40 mg 04-04- t} tablet by Health tablet 00:00: 00:00 oral route 00 :00 2 times every day furosemide 2020-0 2020- No 1{table Q12H take 1 A ccess 40 mg 04-04-11 t} tablet by Health tablet 00:00: 00:00 oral route 00 :00 2 times every day furosemide 2020-0 2020- No 1{table Q12H take 1 A ccess 40 mg 04-04-11 t} tablet by Health tablet 00:00: 00:00 oral route 00 :00 2 times every day furosemide 2020-0 2020- No 1{table Q12H take 1 A ccess 40 mg 04-04-11 t} tablet by Health tablet 00:00: 00:00 oral route 00 :00 2 times every day furosemide 2020-0 2020- No 1{table Q12H take 1 A ccess 40 mg 1-11 t} tablet by Health tablet 00:00: 00:00 [...] 2019- No inhale 3 A ccess -albuterol 04-04- milliliter He alth 0.5 mg-3 00:00: 00:00 [...] up to 6 doses per day ipratropium No inhale 3 A ccess -albuterol 04-04 milliliter He alth 0.5 mg-3 00:00: 00:00 s by mg(2.5 mg 00 :00 nebulizati base)/3 mL on route 4 nebulizatio times per n soln day and as needed, up to 6 doses per day ipratropium No inhale 3 A ccess -albuterol 04-04 [...] three times a day before meals ipratropium No inhale 3 A ccess -albuterol 07-26 [...] 34 [facility] FlexTouch 07-[facility]:00: 00:00 Subcutaneo Insulin 100 [...] three times a day before meals ipratropium No inhale 3 A ccess -albuterol 07-26 [...] three times a day before meals ipratropium No inhale 3 A ccess -albuterol 07-26 [...] :00 1 time per day bumetanide 2019- take 1 [facility] 1 mg tablet [...] 34 [facility] FlexTouch 07-[facility]:00: 00:00 Subcutaneo Insulin 100 [...] (3 times per mL) [facility] and evening lisinopril 2019- [...] morning s pen and evening lisinopril 2019- take 1 [facility] 40 mg 07-26 [...] times per day with food clopidogrel 2019- take 1 Acc ess 75 mg 07-26 [...] ss mg tablet 07-26 tablets by [facility] 00:00: 00:00 Oral route 00 :00 1 [...] 34 [facility] FlexTouch 07-26 [facility] 00:00: 00:00 Subcutaneo Insulin 100 [...] Administered Flu Health vaccine without any complications. [facility] 03/06/2020 ; Source: New Immunization Record Flu (split) (2020-03-06 Completed Note: Access or older) 00:00:00 Administered Flu Health vaccine without any complications. [facility] 03/06/2020 ; Source: New Immunization Record Flu (split) (2020-03-06 Completed Note: Access or older) 00:00:00 Administered Flu Health vaccine without any complications. [facility] 03/06/2020 ; Source: New Immunization Record Flu (split) (2020-03-06 Completed Note: Access or older) 00:00:00 Administered Flu Health vaccine without any complications. [facility] 03/06/2020 ; Source: New Immunization Record Flu (split) (2020-03-06 Completed Note: Access or older) 00:00:00 Administered Flu Health vaccine without any complications. [facility] 03/06/2020 ; Source: New Immunization Record Flu (split) (2020-03-06 Completed Note: Access or older) 00:00:00 Administered Flu Health vaccine without any complications. [facility] 03/06/2020 ; Source: New Immunization Record Flu (split) (2020-03-06 Completed Note: Access or older) 00:00:00 Administered Flu Health vaccine without any complications. [facility] 03/06/2020 ; Source: New Immunization Record Flu (split) (2020-03-06 Completed Note: Access or older) 00:00:00 Administered Flu Health vaccine without any complications. [facility] 03/06/2020 ; Source: New Immunization Record Flu (split) (2020-03-06 Completed Note: Access or older) 00:00:00 Administered Flu Health vaccine without any complications. [facility] 03/06/2020 ; Source: New Immunization Record Flu (split) (2020-03-06 Completed Note: Access or older) 00:00:00 Administered Flu Health vaccine without any complications. [facility] 03/06/2020 ; Source: New Immunization Record Flu (split) (2020-03-06 Completed Note: Access or older) 00:00:00 Administered Flu Health vaccine without any complications. [facility] 03/06/2020 ; Source: New Immunization Record Flu (split) (2020-03-06 Completed Note: Access or older) 00:00:00 Administered Flu Health vaccine without any complications. [facility] 03/06/2020 ; Source: New Immunization Record Flu (split) (2020-03-06 Completed Note: Access or older) 00:00:00 Administered Flu Health vaccine without any complications. [facility] 03/06/2020 ; Source: New Immunization Record Flu (split) (2020-03-06 Completed Note: Access or older) 00:00:00 Administered Flu Health vaccine without any complications. [facility] 03/06/2020 ; Source: New Immunization Record Flu (split) (2020-03-06 Completed Note: Access or older) 00:00:00 Administered Flu Health vaccine without any complications. [facility] 03/06/2020 ; Source: New Immunization Record Flu (split) (2020-03-06 Completed Note: Access or older) 00:00:00 Administered Flu Health vaccine without any complications. [facility] 03/06/2020 ; Source: New Immunization Record Flu (split) (2020-03-06 Completed Note: Access or older) 00:00:00 Administered Flu Health vaccine without any complications. [facility] 03/06/2020 ; Source: New Immunization Record Influenza [...] Completed Note: FLU VACC 4 Access 00:00:00 JMAIL 3 YRS PLUS IM Health By SRODRIGU [...] New Immunization Record Influenza 2017-03-[address] [facility] Three-TIV PF 5+ YR 00:00:00 - [facility] Influenza 2017-03-[address] [facility] Three-TIV PF 5+ YR 00:00:00 - [facility] Influenza 2017-03-[address] [facility] Three-TIV PF 5+ YR 00:00:00 - [facility] Influenza 2017-03-[address] [facility] Three-TIV PF 5+ YR 00:00:00 - [facility] Influenza 2017-03-[address] [facility] Three-TIV PF 5+ YR 00:00:00 - [facility] Influenza 2017-03-[address] [facility] Three-TIV PF 5+ YR 00:00:00 - [facility] Influenza 2017-03-[address] [facility] Three-TIV PF 5+ YR 00:00:00 - [facility] Vital Signs Vital Name Observation Time [...] ealth Body Temperature 2020-12-03 08:35:00 36.33 Bernard[facility] Respiratory Rate 2020-12-03 08:35:00 18 /min [facility] Body mass index 2020-12-03 08:35:00 36.67 kg/m2 [facility] Body height 2020-10-29 08:12:00 172.72 cm Access [facility] Patient Body Weight 2020-10-29 08:12:00 117.480 kg A [facility] Systolic 2020-10-29 08:12:00 102 mm[Hg] [facility] 2020-10-29 08:12:00 67 mm[Hg] [facility] Diastolic Heart Beat 2020-10-29 08:12:00 72 /min [facility] Body Temperature 2020-10-29 08:12:00 36.28 Bernarda [facility] Respiratory Rate 2020-10-29 08:12:00 18 /min [facility] Body mass index 2020-10-29 08:12:00 39.38 kg/m2 [facility] Heart rate 2020-09-29 08:55:00 76 /min [facility] Respiratory rate 2020-09-29 08:55:00 18 /min [facility] Oxygen saturation in 2020-09-29 08:55:00 97 /min [facility] - Arterial blood by Medical Ce nter Pulse oximetry Systolic blood 2020-09-29 04:00:00 134 mm[Hg] [facility] Diastolic blood 2020-09-29 04:00:00 76 mm[Hg] [facility] Body temperature 2020-09-29 04:00:00 37 Bernard[place] [facility] Body weight 2020-09-23 13:36:00 125.646 kg [facility] BMI 2020-09-23 13:36:00 39.75 kg/m2 [facility] Body height 2020-09-22 14:00:00 177.8 cm [facility] Body height 2020-09-17 10:27:00 172.72 [facility] Weight 2020-09-17 10:27:00 129.365 kg [facility] Systolic 2020-09-17 10:27:00 122 mm[Hg] [facility] 2020-09-17 10:27:00 71 mm[Hg] [facility] Diastolic Heart Beat 2020-09-17 10:27:00 82 /min [facility] Body Temperature 2020-09-17 10:27:00 36.56 [facility] Respiratory Rate 2020-09-17 10:27:00 18 /min [facility] Body mass index 2020-09-17 10:27:00 43.36 kg/m2 [facility] Body height 2020-08-15 15:21:00 172.72 cm [facility] Patient Body Weight 2020-08-15 15:21:00 122.016 kg [facility] Systolic 2020-08-15 15:21:00 165 mm[Hg] [facility] 2020-08-15 15:21:00 97 mm[Hg] [facility] Diastolic Heart Beat 2020-08-15 15:21:00 86 /min [facility] Body Temperature 2020-08-15 15:21:00 36.28 [facility] Respiratory Rate 2020-08-15 15:21:00 18 /min [facility] Body mass index 2020-08-15 15:21:00 40.90 kg/m2 [facility] Body height 2020-04-26 09:59:00 172.72 cm [facility] Patient Body Weight 2020-04-26 09:59:00 123.740 kg [facility] Systolic 2020-04-26 09:59:00 120 mm[Hg] [facility] 2020-04-26 09:59:00 66 mm[Hg] [facility] Diastolic Heart Beat 2020-04-26 09:59:00 85 /min [facility] Body Temperature 2020-04-26 09:59:00 36.11 [facility] Respiratory Rate 2020-04-26 09:59:00 18 /min [facility] Body mass index 2020-04-26 09:59:00 41.48 kg/m2 [facility] Body height 2020-03-06 14:18:00 172.72 cm [facility] Patient Body Weight 2020-03-06 14:18:00 123.740 kg [facility] Systolic 2020-03-06 14:18:00 115 mm[Hg] [facility] 2020-03-06 14:18:00 71 mm[Hg] [facility] Diastolic Heart Beat 2020-03-06 14:18:00 73 /min [facility] Body Temperature 2020-03-06 14:18:00 36.22 [facility] Respiratory Rate 2020-03-06 14:18:00 18 /min [facility] Body mass index 2020-03-06 14:18:00 41.48 kg/m2 [facility] Body height 2019-11-09 16:08:00 172.72 [...] Body mass index 2019-11-09 16:08:00 39.87 kg/m2 [facility] Body height 2019-07-03 10:14:00 172.72 cm [facility] Patient Body Weight 2019-07-03 10:14:00 121.381 kg [facility] Systolic 2019-07-03 10:14:00 128 mm[Hg] [facility] 2019-07-03 10:14:00 77 mm[Hg] [facility] Diastolic Heart Beat 2019-07-03 10:14:00 85 /min [facility] Body Temperature 2019-07-03 10:14:00 36.94 [facility] Body mass index 2019-07-03 10:14:00 40.69 kg/m2 [facility] Systolic 2019-04-04 15:01:00 160 mm[Hg] [facility] 2019-04-04 15:01:00 101 mm[Hg] [facility] Diastolic Heart Beat 2019-04-04 15:01:00 82 /min [facility] Body height 2019-04-04 14:21:00 172.72 cm [facility] Patient Body Weight 2019-04-04 14:21:00 119.295 kg [facility] Systolic 2019-04-04 14:21:00 161 mm[Hg] [facility] Int[facility]ascular 2019-04-04 14:21:00 113 mm[Hg] [facility] Diastolic Heart Beat 2019-04-04 14:21:00 88 /min [facility] Body Temperature 2019-04-04 14:21:00 36.78 Bernarda [facility] Respiratory Rate 2019-04-04 14:21:00 18 /min [facility] Body mass index 2019-04-04 14:21:00 39.99 kg/m2 [facility] Body height 2018-09-06 09:34:00 68.00 [in_us] [facility] Patient Body Weight 2018-09-06 09:34:00 267.60 [lb_av] [facility] Systolic 2018-09-06 09:34:00 107 mm[Hg] [facility] 2018-09-06 09:34:00 70 mm[Hg] [facility] Diastolic Heart Beat 2018-09-06 09:34:00 72 /min [facility] Body Temperature 2018-09-06 09:34:00 98.00 [degF] [facility] [...] Beat 2018-07-26 15:37:00 73 /min [facility] Body Temperature 2018-07-26 15:37:00 98.10 [degF] [facility] Respiratory Rate 2018-07-26 15:37:00 18 /min [facility] Body mass index 2018-07-26 15:37:00 40.00 kg/m2 [facility] Body height 2018-03-30 13:09:00 68.00 [...] Body mass index 2017-07-14 09:04:00 40.60 kg/m2 [facility] Body height 2017-06-10 08:27:00 68.00 [...] Body mass index 2017-04-09 13:28:00 41.40 kg/m2 [facility] Body height 2017-02-09 14:42:00 68.00 [...] Beat 2016-07-16 08:27:00 68 /min [facility] Body Temperature 2016-07-16 08:27:00 98.90 [degF] [facility] [...] Body Temperature 2015-09-26 14:28:00 98.70 [degF] [facility] Respiratory Rate 2015-09-26 14:28:00 18 /min [facility] Body mass index 2015-09-26 14:28:00 38.60 kg/m2 [facility] Systolic 2015-05-03 16:39:00 180 mm[Hg] [facility] 2015-05-03 16:39:00 104 mm[Hg] [facility] Diastolic Body height 2015-05-03 15:36:00 68.00 [in_us] [facility] Patient Body Weight 2015-05-03 15:36:00 245.00 [lb_av] [facility] Systolic 2015-05-03 15:36:00 195 mm[Hg] [facility] 2015-05-03 15:36:00 100 mm[Hg] [facility] Diastolic Heart Beat 2015-05-03 15:36:00 75 /min [facility] Body Temperature 2015-05-03 15:36:00 97.90 [degF] [facility] Respiratory Rate 2015-05-03 15:36:00 20 /min [facility] Body mass index 2015-05-03 15:36:00 37.20 kg/m2 [facility] Procedures Procedure Date / Time Performing Clinician Source Performed OFFICE/OUTPATIENT VISIT 2021-01-29 00:00:00 [facility] EST COMPREHEN METABOLIC PANEL 2021-01-29 00:00:00 [facility] URINALYSIS AUTO W/SCOPE 2021-01-29 00:00:00 [facility] UR ALBUMIN QUANTITATIVE 2021-01-29 00:00:00 [facility] GLYCOSYLATED HEMOGLOBIN 2021-01-29 00:00:00 [facility] TEST VITAMIN D 25 HYDROXY 2021-01-29 00:00:00 [facility] ASSAY OF NATRIURETIC 2021-01-29 00:00:00 [facility] PEPTIDE ASSAY OF BLOOD/URIC ACID 2021-01-29 00:00:00 Acc [facility] Health ASSAY OF PHOSPHORUS 2021-01-29 00:00:00 [facility] RBC SED RATE AUTOMATED 2021-01-29 00:00:00 [facility] ASSAY OF MAGNESIUM 2021-01-29 00:00:00 [facility] C-REACTIVE PROTEIN 2021-01-29 00:00:00 [facility] GLUCOSE BLOOD TEST 2020-12-03 00:00:00 [facility] OFFICE/OUTPATIENT VISIT 2020-12-03 00:00:00 [employer] EST Insulin injection 2020-12-03 00:00:00 [facility] THER/PROPH/DIAG INJ SC/IM 2020-12-03 00:00:00 [facility] COMPREHEN METABOLIC PANEL 2020-12-03 00:00:00 Ac [facility] ASSAY OF NATRIURETIC 2020-12-03 00:00:00 [facility] PEPTIDE ASSAY OF PHOSPHORUS 2020-12-03 00:00:00 [facility] GLUCOSE BLOOD TEST 2020-10-29 00:00:00 [facility] OFFICE/OUTPATIENT VISIT 2020-10-29 00:00:00 [facility] EST COMPLETE CBC W/AUTO DIFF 2020-10-29 00:00:00 Acc [facility] Health WBC COMPREHEN METABOLIC PANEL 2020-10-29 00:00:00 [facility] URINALYSIS AUTO W/SCOPE 2020-10-29 00:00:00 [facility] LIPID PANEL 2020-10-29 00:00:00 [facility] GLYCOSYLATED HEMOGLOBIN 2020-10-29 00:00:00 [facility] TEST VITAMIN D 25 HYDROXY 2020-10-29 00:00:00 [facility] ASSAY OF NATRIURETIC 2020-10-29 00:00:00 [facility] Health PEPTIDE ASSAY OF MAGNESIUM 2020-10-29 00:00:00 [facility] ASSAY OF PARATHORMONE 2020-10-29 00:00:00 [facility] HAND, MINIMUM THREE VIEWS, 2020-10-29 00:00:00 A [facility] RADIOLOGIC EXAM CBC W/PLT COUNT & AUTO 2020-09-29 04:29:00 [facility] (7[facility] 2020-09-29 04:29:00 Gretchen Hensley [facility] MAGNESIUM 2020-09-29 04:29:00 Ayden [facility] CBC W/PLT COUNT & AUTO 2020-09-29 04:29:00 Ayden [facility] POCT-GLUCOSE METER 2020-09-28 17:27:00 Parish [facility] POCT-GLUCOSE METER 2020-09-28 12:49:00 Shieh [facility] POCT-GLUCOSE METER 2020-09-28 05:58:00 Shieh [facility] CBC W/PLT COUNT & AUTO 2020-09-28 04:49:00 Ayden [facility] BASIC METABOLIC PANEL (7) 2020-09-28 04:49:00 Gretchen Hensley [facility] MAGNESIUM 2020-09-28 04:49:00 Ayden [facility] CBC W/PLT COUNT & AUTO 2020-09-28 04:49[facility]00 [facility] 2020-09-27 20:57:00 Shieh [facility] POCT-GLUCOSE METER 2020-09-27 19:07:00 Shieh [facility] POCT-GLUCOSE METER 2020-09-27 12:26:00 Shieh [facility] POCT-GLUCOSE METER 2020-09-27 06:36:00 Parish [facility] CBC W/PLT COUNT & AUTO 2020-09-27 03:45:00 Ayden [facility] BASIC METABOLIC PANEL (7) 2020-09-27 03:45:00 Gretchen Hensley [facility] MAGNESIUM 2020-09-27 03:45:00 [facility] W/[facility]T COUNT & AUTO 2020-09-27 03:45:00 Gretchen Hensley [facility] POCT-GLUCOSE METER 2020-09-26 23:12:00 Parish [facility] POCT-GLUCOSE METER 2020-09-26 18:20:00 Parish [facility] POCT-GLUCOSE METER 2020-09-26 13:31:00 Parish [facility] XR FOOT 3 VIEWS LEFT 2020-09-26 08:38:00 Laura Muñiz [facility] POCT-GLUCOSE METER 2020-09-26 08:34:00 Parish [facility] ANAEROBIC CULTURE 2020-09-26 08:07:57 [facility] 2020-09-26 08:07:57 Laura Muñiz [facility] - CULTURE + GRAM STAIN Medical Matty ter ANAEROBIC CULTURE 2020-09-26 08:02:39 Laura Muñiz [facility] SURGICALLY OBTAINED 2020-09-26 08:02:39 Laura Muñiz [facility] - CULTURE + GRAM STAIN Medical [facility]ty ter TISSUE EXAM 2020-09-26 07:56:00 Laura Muñiz [facility] AMPUTATION,TOE 2020-09-26 07:12:00 Laura Muñiz [facility] CBC W/PLT COUNT & AUTO 2020-09-26 04:37:00 Gretchen Hensley [facility] BASIC METABOLIC PANEL (7) 2020-09-26 04:37:00 Ayden Gretchen MARROQUIN I [facility] MAGNESIUM 2020-09-26 04:37:00 [facility] B-TYPE NATRIURETIC FACTOR 2020-09-26 04:37:00 Parish Yoni [facility] (BNP) [facility] CBC W/PLT COUNT & AUTO 2020-09-26 04:37:00 Ayden Gretchen [facility] POCT-GLUCOSE METER 2020-09-25 21:10:00 Janeteh [facility] POCT-GLUCOSE METER 2020-09-25 16:15:00 Janeteh [facility] POCT-GLUCOSE METER 2020-09-25 11:21:00 Shieh [facility] POCT-GLUCOSE METER 2020-09-25 06:02:00 [facility] W/[facility]T [facility] & AUTO 2020-09-25 04:44:00 Ayden [facility] BASIC METABOLIC PANEL (7) 2020-09-25 04:44:00 Ayden Gretchen [facility] MAGNESIUM 2020-09-25 04:44:00 [facility] CBC W/PLT COUNT & AUTO 2020-09-25 04:44:00 Gretchen Hensley [facility] POCT-GLUCOSE METER 2020-09-24 20:36:00 Ayden [facility] POCT-GLUCOSE METER 2020-09-24 17:37:00 Hensley [facility] HC ARTERIAL DOPPLER LEGS 2020-09-24 13:22:00 Laura Muñiz [facility] POCT-GLUCOSE METER 2020-09-24 06:34:00 Ayden [facility] CBC W/PLT COUNT & AUTO 2020-09-24 05:11:00 Ayden [facility] BASIC METABOLIC PANEL (7) 2020-09-24 05:11:00 Gretchen Hensley [facility] MAGNESIUM 2020-09-24 05:11:00 Ayden [facility] PTH, INTACT 2020-09-24 05:11:00 Nneka, [facility] VITAMIN D, 25-HYDROXY 2020-09-24 05:11:00 Nneka [facility] CBC W/PLT COUNT & AUTO 2020-09-24 05:11:00 Ayden [facility] IRON, TIBC, % SAT. 2020-09-24 05:10:00 Nneka, [facility] (WITHOUT FERRITIN) [facility] 2020-09-24 05:10:00 [facility] POCT-GLUCOSE METER 2020-09-23 21:25:00 [facility] RENAL COMPLETE 2020-09-23 20:30:00 Nneka, [facility] URINALYSIS W/ REFLEX URINE 2020-09-23 16:58:00 Nneka, Rene jeffries [facility] SODIUM, RANDOM URINE 2020-09-23 16:58:00 Nneka, [facility] CHLORIDE, RANDOM URINE 2020-09-23 16:58:00 Nneka, max Suh [facility] POTASSIUM, RANDOM URINE 2020-09-23 16:58:00 Nneka, Rene Suh [facility] UREA NITROGEN, RANDOM 2020-09-23 16:58:00 Nneka, [facility] CREATININE, RANDOM URINE 2020-09-23 16:58:00 Nneka, [facility] PROTEIN, RANDOM URINE 2020-09-23 16:58:00 Nneka, Rene Vik[facility] POCT-GLUCOSE METER 2020-09-23 16:20:00 [facility] POCT-GLUCOSE METER 2020-09-23 11:40:00 [facility] 2D ECHO W/ DOPPLER 2020-09-23 08:00:54 [facility] (CW/PW/COLOR) [facility] POCT-GLUCOSE METER 2020-09-23 07:58:00 [facility] XR FOOT 3 VIEWS LEFT 2020-09-23 07:33:00 Laura Muñiz [facility] CBC W/PLT COUNT & AUTO 2020-09-23 04:51:00 Hensley [facility] BASIC METABOLIC PANEL (7) 2020-09-23 04:51:00 Hensley [facility] MAGNESIUM 2020-09-23 04:51:00 Ayden [facility] PHOSPHORUS 2020-09-23 04:51:00 [facility] CBC W/PLT COUNT & AUTO 2020-09-23 04:51:00 Hensley [facility] POCT-GLUCOSE METER 2020-09-22 20:46:00 [facility] POCT-GLUCOSE METER 2020-09-22 17:01:00 Ayden [facility] SARS-COV2/RT-PCR ([facility] & 2020-09-22 10:50:00 Ayden [facility] REF LABS) [facility] B-TYPE NATRIURETIC FACTOR 2020-09-22 06:54:00 David Riddle [facility] (BNP) [facility] BASIC METABOLIC PANEL (7) 2020-09-22 06:54:00 David Riddle [facility] CBC W/PLT COUNT & AUTO 2020-09-22 06:54:00 David Riddle [facility] PT/APTT 2020-09-22 06:54:00 David Riddle [facility] TROPONIN I 2020-09-22 06:54:00 David Riddle [facility] CBC W/PLT COUNT & AUTO 2020-09-22 06:54:00 David Riddle [facility] ED ECG INTERPRETATION 2020-09-22 06:40:53 David Riddle [facility] XR CHEST 1 VIEW PORTABLE / 2020-09-22 06:36:00 David Riddle [facility] BEDSIDE [facility] REPORT OF PROCEDURE - 2020-09-22 00:00:00 ProviderMolina [facility] ENDOSCOPY SCAN Scanning [facility] GLUCOSE BLOOD TEST 2020-09-17 00:00:00 [facility] OFFICE/OUTPATIENT VISIT 2020-09-17 00:00:00 [facility] EST GLUCOSE BLOOD TEST 2020-08-15 00:00:00 [facility] OFFICE/OUTPATIENT VISIT 2020-08-15 00:00:00 [facility] EST COMPREHEN METABOLIC PANEL 2020-08-15 00:00:00 [facility] LIPID PANEL 2020-08-15 00:00:00 [facility] GLYCOSYLATED HEMOGLOBIN 2020-08-15 00:00:00 [facility] TEST ASSAY OF NATRIURETIC 2020-08-15 00:00:00 [facility] PEPTIDE CBC W/PLT COUNT & AUTO 2020-04-30 18:40:00 [facility] LACTIC ACID, VENOUS 2020-04-30 18:40:00 David Riddle [facility] COMPREHENSIVE METABOLIC 2020-04-30 18:40:00 David Riddle [facility] PROTHROMBIN TIME/INR 2020-04-30 18:40:00 David Riddle [facility] TYPE AND SCREEN, AUTOMATED 2020-04-30 18:40:00 David Riddle [facility] CBC W/PLT COUNT & AUTO 2020-04-30 18:40:00 David [facility] GLUCOSE BLOOD TEST 2020-04-26 00:00:00 Access [facility] OFFICE/OUTPATIENT VISIT 2020-04-26 00:00:00 Acce [employer] EST POCT-GLUCOSE METER 2020-04-06 08:02:00 Frandy Lugo [facility] BASIC METABOLIC PANEL (7) 2020-04-06 04:26:00 Frandy Lugo [facility] CBC W/PLT COUNT & AUTO 2020-04-06 04:26:00 Frandy Lugo [facility] CBC W/PLT COUNT & AUTO 2020-04-06 04:26:00 Frandy Lugo [facility] POCT-GLUCOSE METER 2020-04-05 22:06:00 Frandy Lugo [facility] POCT-GLUCOSE METER 2020-04-05 15:18:00 Frandy Lugo [facility] POCT-GLUCOSE METER 2020-04-05 11:37:00 Frandy Lugo [facility] IR PICC LINE PLACEMENT 2020-04-05 11:14:00 Frandy Lugo [facility] OLDER THAN 5 YRS [facility] POCT-GLUCOSE METER 2020-04-05 09:23:00 Frandy Lugo [facility] POCT-GLUCOSE METER 2020-04-05 07:59:00 Frandy Lugo [facility] BASIC METABOLIC PANEL (7) 2020-04-05 04:40:00 Frandy Lugo [facility] CBC W/PLT COUNT & AUTO 2020-04-05 04:40:00 Frandy Lugo [facility] CBC W/PLT COUNT & AUTO 2020-04-05 04:40:00 Frandy Lugo [facility] VANCOMYCIN LEVEL, TROUGH 2020-04-04 23:37:00 Stephane Echavarria [facility] POCT-GLUCOSE METER 2020-04-04 21:14:00 Frandy Lugo [facility] POCT-GLUCOSE METER 2020-04-04 15:41:00 Frandy Lugo [facility] POCT-GLUCOSE METER 2020-04-04 11:36:00 Frandy Lugo [facility] POCT-GLUCOSE METER 2020-04-04 07:45:00 Frandy Lugo [facility] PROTEIN ELECTROPHORESIS, 2020-04-04 05:23:00 Keven Tiwari [facility] PTH, INTACT 2020-04-04 05:23:00 Keven Tiwari [facility] BASIC METABOLIC PANEL (7) 2020-04-04 05:23:00 Frandy Lugo [facility] CBC W/PLT COUNT & AUTO 2020-04-04 05:23:00 Frandy Lugo [facility] CBC W/PLT COUNT & AUTO 2020-04-04 05:23:00 Frandy Lugo [facility] POCT-GLUCOSE METER 2020-04-03 21:31:00 Frandy Lugo [facility] KAPPA / LAMBDA LIGHT 2020-04-03 17:10:00 Keven Tiwari [facility] HC LAB HIV-1 AG W/HIV-1&2 2020-04-03 17:10:00 Keven Tiwari [facility] HEPATITIS PANEL, ACUTE 2020-04-03 17:10:00 Keven Tiwari [facility] CBC W/PLT COUNT & AUTO 2020-04-03 17:10:00 Keven Tiwari [facility] BASIC METABOLIC PANEL (7) 2020-04-03 17:10:00 Frandy Lugo [facility] CBC W/PLT COUNT & AUTO 2020-04-03 17:10:00 Keven Tiwari [facility] POCT-GLUCOSE METER 2020-04-03 16:05:00 Frandy Lugo [facility] POCT-GLUCOSE METER 2020-04-03 11:34:00 Frandy Lugo [facility] PROTEIN, RANDOM URINE 2020-04-03 10:52:[address] [facility] SODIUM, RANDOM URINE 2020-04-03 10:39:00 Frandy Lugo [facility] CREATININE, RANDOM URINE 2020-04-03 10:39:00 Frandy Lugo [facility] UREA NITROGEN, RANDOM 2020-04-03 10:39:[address] [facility] URINALYSIS W/ MICROSCOPIC 2020-04-03 10:39:00 Frandy Lugo [facility] B-TYPE NATRIURETIC FACTOR 2020-04-03 10:20:00 Milagros Lainez [facility] ([facility] US RENAL COMPLETE 2020-04-03 08:45:00 Frandy Lugo [facility] POCT-GLUCOSE METER 2020-04-03 07:27:00 Lilliam [facility] CBC (HEMOGRAM ONLY) 2020-04-03 04:48:00 Lilliam [facility] BASIC METABOLIC PANEL (7) 2020-04-03 04:48:00 [facility]US 2020-04-03 04:48:[address] [facility] VANCOMYCIN LEVEL, TROUGH 2020-04-02 22:02:00 Jazmin Willard [facility] POCT-GLUCOSE METER 2020-04-02 21:17:00 Lilliam [facility] CT LOWER EXTREMITY WITHOUT 2020-04-02 17:38:00 Ray Ellis [facility] IV CONTRAST [facility] POCT-GLUCOSE METER 2020-04-02 15:51:00 Lilliam [facility] POCT-GLUCOSE METER 2020-04-02 11:43:00 [facility] CBC (HEMOGRAM ONLY) 2020-04-02 06:31:00 [facility] BASIC METABOLIC PANEL (7) 2020-04-02 06:31:00 Lilliam, [facility] POCT-GLUCOSE METER 2020-04-01 15:37:00 [facility] ANAEROBIC CULTURE 2020-04-01 13:30:14 Patrick [facility] SURGICALLY OBTAINED 2020-04-01 13:30:14 Patrick [facility] - CULTURE + GRAM STAIN Medical [facility] ter ANAEROBIC CULTURE 2020-04-01 13:21:05 Patrick [facility] SURGICALLY OBTAINED 2020-04-01 13:21:05 Patrick [facility] - CULTURE + GRAM STAIN Medical [facility] ter TISSUE EXAM 2020-04-01 13:12:00 Patrick [facility] POCT-GLUCOSE METER 2020-04-01 12:48:00 Lilliam [facility] DEBRIDEMENT/I&D,WOUND 2020-04-01 11:52:[address] [facility] POCT-GLUCOSE METER 2020-04-01 11:37:00 Lilliam [facility] ECG 12-LEAD 2020-04-01 08:42:02 Unknown, Hl7 [facility] ECG 12-LEAD 2020-04-01 08:42:02 Unknown, Hl7 [facility] POCT-GLUCOSE METER 2020-04-01 07:24:00 [facility] BASIC METABOLIC PANEL (7) 2020-04-01 03:58:00 Lilliam [facility] POCT-GLUCOSE METER 2020-03-31 20:42:00 [facility] POCT-GLUCOSE METER 2020-03-31 15:27:00 [facility] POCT-GLUCOSE METER 2020-03-31 11:22:00 [facility] POCT-GLUCOSE METER 2020-03-31 07:18:00 [facility] BASIC METABOLIC PANEL (7) 2020-03-31 04:47:00 [facility] HEMOGLOBIN A1C 2020-03-31 04:47:00 [facility] CBC W/PLT COUNT & AUTO 2020-03-31 04:47:00 [facility] CBC W/PLT COUNT & AUTO 2020-03-31 04:47:00 [facility] POCT-GLUCOSE METER 2020-03-30 21:59:00 [facility] XR FOOT 3 VIEWS LEFT 2020-03-30 21:05:00 [facility] WOUND CULTURE + GRAM STAIN 2020-03-30 20:54:00 [facility] SARS-COV2/RT-PCR ([facility] & 2020-03-30 20:50:00 [facility] REF LABS) [facility] BLOOD CULTURE 2020-03-30 20:49:00 [facility] CBC W/PLT COUNT & AUTO 2020-03-30 20:49:00 [facility] BASIC METABOLIC PANEL (7) 2020-03-30 20:49:00 [facility] CBC W/PLT COUNT & AUTO 2020-03-30 20:49:00 [facility] CARDIAC CATH REPORT - SCAN 2020-03-30 00:00:[address] [facility] REPORT OF PROCEDURE - 2020-03-30 00:00:00 Provider, [facility] - ENDOSCOPY SCAN Scanning [facility] BLOOD CULTURE 2020-03-20 01:07:00 David Riddle [facility] LACTIC ACID, VENOUS 2020-03-20 01:07:00 David Riddle [facility] CBC W/PLT COUNT & AUTO 2020-03-20 00:55:00 David Riddle [facility] BASIC METABOLIC PANEL (7) 2020-03-20 00:55:00 David Riddle [facility] C-REACTIVE PROTEIN 2020-03-20 00:55:00 David Riddle [facility] CBC W/PLT COUNT & AUTO 2020-03-20 00:55:00 David Riddle [facility] BLOOD CULTURE 2020-03-20 00:54:00 David Riddle [facility] XR FOOT 3 VIEWS LEFT 2020-03-20 00:37:00 David Riddle [facility] GLUCOSE BLOOD TEST 2020-03-06 00:00:00 [facility] Insulin injection 2020-03-06 00:00:00 [facility] THER/PROPH/DIAG INJ SC/IM 2020-03-06 00:00:00 [facility] IMMUNIZATION ADMIN 2020-03-06 00:00:00 [facility] IIV4 VACCINE SPLT 0.5 ML 2020-03-06 00:00:00 [facility] IM VFC OFFICE/OUTPATIENT VISIT 2020-03-06 00:00:00 [facility] EST COMPREHEN METABOLIC PANEL 2020-03-06 00:00:00 [facility] LIPID PANEL 2020-03-06 00:00:00 [facility] GLYCOSYLATED HEMOGLOBIN 2020-03-06 00:00:00 [facility] TEST INCISION AND DRAINAGE 2019 07:17:11 Tyshawn Serra [facility] GLUCOSE BLOOD TEST 2019-11-09 00:00:00 Access He [...] s - Test 00:00:00 (procedure) [code = [facility] [id number]] Future Scheduled 2023-03-[address] [facility] 00:00:00 (procedure) [code = [facility] [id number]] Future Scheduled 2023-03-[address] [facility] - Test 00:00:00 (procedure) [code = [facility] [id number]] Future Scheduled 2023-03-[address] [facility] Test 00:00:00 (procedure) [code = [facility] [id number]] Future Scheduled 2023-03-[address] [facility] Test 00:00:00 (procedure) [code = [facility] [id number]] Future Scheduled 2023-03-[address] [facility] Test 00:00:00 (procedure) [code = [facility] [id number]] Future Scheduled 2023-03-[address] [facility] Test 00:00:00 (procedure) [code = [facility] [id number]] Future Scheduled 2021-09-[address] [facility] examination [facility] (regime[facility]therapy) [code = 340990161] Future Scheduled 2021-09-[address] [facility] examination [facility] Center (regime/therapy) [code = [id number]] Future Scheduled 2021-09-[address] examination [facility] (regime/therapy) [code = [id number]] Future Scheduled 2021-09-[address] 00:[facility] examination [facility] Center (regime/therapy) [code = 880278428] Future Scheduled 2021-09-[address] [facility] 00[facility] examination [facility] Center (regime/therapy) [code = [id number]] Future Scheduled 2021-09-[address] 00:[facility]00 examination Medical Center (regime/therapy) [code = 991736854] Future Scheduled 2021-09-[address] [facility] 00:[facility]00 examination [facility] Center (regime/therapy) [code = 535910407] Future Scheduled 2020-11-27 INFLUENZA VACCINE (#1) C [...] [facility]00 [facility] Center (procedure) [code = 75578935] Future Scheduled 2020-06-[address] [facility] 00:00:00 measurement [facility] (procedure) [code = 37811756] Future Scheduled 2020-06-[address] [facility] 00:[facility]:00 measurement [facility] (procedure) [code = 19114704] Future Scheduled 2020-06-[address] [facility] 00:00:00 measurement [facility] (procedure) [code = 67387996] Future Scheduled 2020-06-[address] [facility] 00:00:00 measurement [facility] (procedure) [code = 67631308] Future Scheduled 2020-06-[address] [facility] 00:00:00 measurement [facility] Center (procedure) [code = 76200043] Future Scheduled 2020-06-29 Hemoglobin A1c [facility] [facility] - Test 00:00:00 [facility] (procedure) [code = 24355589] Future Scheduled 2018-06-11 Urine screening for [facility] - Test 00:00:00 protein (procedure) [facility] Center [code = 659501536] Future Scheduled 2018-06-11 Urine screening for [facility] - Test 00:00:00 protein (procedure) [facility] Center [code = 619858368] Future Scheduled 2018-06-11 Urine screening for [facility] - Test 00:00:00 protein (procedure) [facility] Center [code = 633963708] Future Scheduled 2018-06-11 Urine screening for [facility] - Test 00:00:00 protein (procedure) [facility] Center [code = 620206346] Future Scheduled 2018-06-11 Urine screening for [facility] - Test 00:00:00 protein (procedure) [facility] Center [code = 638534629] Future Scheduled 2018-06-11 Urine screening for [facility] - Test 00:00:00 protein (procedure) Medical Center [code = 449429435] Future Scheduled 2018-06-11 Urine screening [facility] - Test 00:00:00 protein (procedure) Medical Center [code = 099784716] Future Scheduled 1992 DTAP/TDAP/TD VACCINES [facility] colon (procedure) [code = 279752726] Future Scheduled [address] [facility] 00:[facility]:00 malignant ne[facility] colon (procedure) [code = 551130607] Future Scheduled [address] [facility] Test 00:00:00 [facility] colon (procedure) [code = 498195165] Future Scheduled [address] [facility] Test 00:00:00 [facility] colon (procedure) [code = 292987289] Future Scheduled [address] [facility] Test 00:00:00 [facility] colon (procedure) [code = 010174139] Future Scheduled [address] [facility] Test 00:00:00 [facility] colon (procedure) [code = 507949745] Future Scheduled [address] [facility] Test 00:00:00 [facility] colon (procedure) [code = 157133484] Encounters Start End Encounter Admission Attending Care Care Encounter Source Date/Time Date/Time Type Type Clinicians Facility Department ID 2021-02-05 2021-02-05 Outpatient NURSE, [facility] [id number] Access 08:34:00 08:34:00 NURSE [facility] 2021-02-05 2021-02-05 Outpatient NURSE, [facility] [id number] c7f 5cdac-7 Access 08:34:00 08:34:00 NURSE 22-4926-a4f 27a-4773-9 Health f-[id number] 7fb-1305a7 alexander [id number] 3720-11-05 2021-01-31 Outpatient DIANE, [facility] [id number] Access 12:07:00 12:07:00 [facility] 2021-01-31 2021-01-31 [facility] [id number] Access 12:07:00 12:07:00 [facility] e2-8qa3-32x 77b-4d44-9 [facility] [id number] 7ae-[id number] 0f4 [id number] 2021-01-29 2021-01-29 Outpatient DIANE, [facility] [id number] Access 10:00:00 10:00:00 [facility] 2021-01-29 2021-01-29 OFFICE/OUT DIANE [facility] [id number] Access 10:00:00 10:00:00 PATIENT MIRTA 22-4926-a4f t08-5bjd-n Health VISIT EST f-[id number]-[id number] alexander [id number] 2021-01-06 2021-01-06 [facility] [id number] Access 10:24:00 10:24:00 [facility] 2021-01-06 2021-01-06 [facility] [id number] db1 [id number]-a Access 10:24:00 10:24:00 [facility] 22-4926-a4f 382-4f2f-b Health f-[id number] alexander [id number] 2020-12-11 2020-12-11 Outpatient [facility] [id number] Access 14:09:00 14:09:00 [facility] 2020-12-11 2020-12-11 Outpatient OSEI, [facility] [id number] ms141-x Access 14:09:00 14:09:00 [facility] e2-9kz4-87v da5-4cb6-9 [facility] 0-[id number] 551-5cccdd 0f4 6ed33f 2020-12-11 2020-12-11 Outpatient NURSE, [facility] [id number] Access 13:49:00 13:49:00 NURSE [facility] 2020-12-11 2020-12-11 Outpatient NURSE, [facility] [id number] 3c7 [id number]-e Access 13:49:00 13:49:00 NURSE 22-4926-a4f 06f-4acf-8 [facility] f-[id number] z22-4241b5 alexander [id number] 2020-12-06 2020-12-06 Outpatient CONTRERAS, [facility] [id number] Access 10:17:00 10:17:00 [facility] 2020-12-06 2020-12-06 Outpatient CONTRERAS, [facility] [id number] c [id number] Access 10:17:00 10:17:00 MIRTA 22-4926-a4f 937-42b7-9 [facility] f-69827626m 5d8-x35c2w alexander [id number] 2020-11-04 2020-12-05 Outpatient C PATRICK [facility] [id number] [place] 09:15:00 23:59:00 [facility] 2020-12-03 2020-12-03 Outpatient CONTRERAS, [facility] [id number] Access 09:00:00 09:00:00 [facility] 2020-12-03 2020-12-03 OFFICE/OUT CONTRERAS [facility] [id number] Access 09:00:00 09:00:00 PATIENT MIRTA 22-4926-a4f cc3-429e-b Health VISIT EST f-[id number] alexander [id number] 0714-09-07 2020-12-03 Outpatient CONTRERAS, [facility] [id number] Access 00:00:00 00:00:00 [facility] 2020-12-03 2020-12-03 Outpatient DIANE, [facility] [id number] Access 00:00:00 00:00:00 [facility] ed-4120-b9c 9j1-86ho-q [facility] 7-[id number] [id number] 27a 14fcc1 2020-10-07 2020-11-06 Outpatient C PATRICK [facility] WC [id number] [place] 08:58:00 15:34:00 [facility] 2020-11-02 2020-11-02 Outpatient CONTRERAS, [facility] [id number] Access 10:08:00 10:08:00 [facility] 2020-11-02 2020-11-02 Outpatient DIANE, [facility] [id number] 1 [id number] Access 10:08:00 10:08:00 [facility] 22-4926-a4f 3ac-4fb1-9 Health f-[id number] 3ff-44aa5d alexander acf95f 2020-10-29 2020-10-29 Outpatient Neida QUINTEROCONTRERAS, [facility] [id number] [place] 10:49:00 23:59:00 [facility] 2020-10-29 2020-10-29 Outpatient DIANE, [facility] [id number] Access 08:30:00 08:30:00 [facility] 2020-10-29 2020-10-29 [facility] [id number] b [id number] Access 08:30:00 08:30:00 PATIENT [facility] 22-4926-a4f 799-42b5-b Health VISIT EST f-[id number]-8e1e1s alexander [id number] 2020-10-01 2020-10-01 Outpatient CONTRERAS, [facility] [id number] Access 13:25:00 13:25:00 [facility] 2020-10-01 2020-10-01 [facility] [id number] 0 [id number] Access 13:25:00 13:25:00 [facility] 22-4926-a4f bbe-4dcc-9 Health f-[id number] 976-38ac3a alexander [id number] 4960-06-27 2020-09-29 Hospital ER David Riddle [facility] [id number] 06:13:00 13:20:00 Encounter Gretchen Hensley, [facility] 2020-09-26 2020-09-26 Surgery Muñiz, [facility] [id number] 07:00:00 08:30:00 [facility] 2020-09-26 2020-09-26 Anesthesia Joanie, [facility] [id number] [facility] [address] 07:12:00 08:20:[address] [facility] 2020-09-22 2020-09-22 Emergency ER [facility] [id number] [facility] 06:09:00 06:09:00 2020-09-22 2020-09-22 Travel [facility] [id number] [facility] 00[facility]00:00 00:00:00 [facility] 2020-09-17 2020-09-17 Outpatient [facility] [id number] Access 10:30:00 10:30:00 [facility] 2020-09-17 2020-09-17 [facility] [id number] b woaj727-x Access 10:30:00 10:30:00 PATIENT MIRTA 22-4926-a4f d0e-7828-u Health VISIT EST f-[id number]-m0o036 alexander [id number] 2020-08-19 2020-08-19 Outpatient [facility] [id number] Access 16:36:00 16:36:00 NAIF marie 2020-08-19 2020-08-19 Outpatient [facility] [id number] ffa s1578-y Access 16:36:00 16:36:00 NAIF Estrella-4926-a4f 77c-448d- a Health f-10401956j 947-967f2c alexander [id number] 2020-08-15 2020-08-15 Outpatient OMORI, [facility] [id number] Access 16:00:00 16:00:00 NAIF marie 2020-08-15 2020-08-15 OFFICE/OUT JOSE FRANCISCO, [facility] etl434vc-5j b2d [id number] Access 16:00:00 16:00:00 PATIENT NAIF Estrella-4926-a4f 1l2-76al- 8 Health VISIT EST f-[id number] bfe-b7e8ff alexander [id number] 2020-07-04 2020-07-04 Outpatient OMORI, [facility] [id number] Access 08:04:00 08:04:00 NAIF marie 2020-07-04 2020-07-04 Outpatient OMORI, [facility] [id number] bf0 48950-w Access 08:04:00 08:04:00 NAIF Estrella-4926-a4f r65-20ng- 8 Health f-56197222l 83a-8c2a7a alexander [id number] 2020-06-19 2020-06-19 Outpatient OMORI, [facility] [id number] Access 10:00:00 10:00:00 NAIF marie 2020-06-19 2020-06-19 Outpatient OMORI, [facility] gwy544fi-8t 204 [id number] Access 10:00:00 10:00:00 NAIF Estrella-4926-a4f 103-4d36- a Health f-27606744l [id number] alexander eaa20d 2020-05-09 2020-05-09 Outpatient OMORI, [facility] [id number] Access 12:10:00 12:10:00 NAIF marie 2020-05-09 2020-05-09 Outpatient OMORI, [facility] fuz127ld-9z f95 56gq0-6 Access 12:10:00 12:10:00 NAIF Estrella-4926-a4f 9af-4860- 9 Health f-82792050d 351-d55bc4 alexander [id number] 2020-04-30 2020-04-30 Emergency [facility] [id number] [facility] 18:09:00 19:41:00 David Wang [facility] 2020-04-30 2020-04-30 Emergency ER [facility] [id number] [facility] 17:53:00 17:53:00 2020-04-30 2020-04-30 Travel [facility] [id number] [facility] 00[facility]00 00:00:00 [facility] 2020-04-26 2020-04-26 Outpatient [facility], [facility] [id number] Access 10:00:00 10:00:00 NAIF marie 2020-04-26 2020-04-26 OFFICE/OUT [facility], [facility] [id number]-8w 8f4 p4999-r Access 10:00:00 10:00:00 PATIENT NAIF 22-4926-a4f 15b-403b- a Health VISIT EST f-[id number] alexander [id number] 2020-04-22 2020-04-22 Outpatient OMORI, [facility] [id number] Access 14:45:00 14:45:00 NAIF marie 2020-04-22 2020-04-22 Outpatient [facility], [facility] uyq245lo-7z 55c 39beb-3 Access 14:45:00 14:45:00 NAIF 22-4926-a4f 332-4409- b Health f-06850295c z86-kw56x0 alexander [id number] 2020-04-22 2020-04-22 Outpatient IRIZARRY, [facility] [id number] Access 12:41:00 12:41:00 SUKUMRA marie 2020-04-22 2020-04-22 Outpatient IRIZARRY, [facility] 1dr1x8z5-3a 9a1 ddbd0-e Access 12:41:00 12:41:00 SUKUMAR e2-5yf9-45v 0t2-3j3m- 9 Health 0-ny8vvg298 30c-206d01 0f4 [id number] 2020-04-18 2020-04-18 Outpatient OMORI, [facility] [id number] Access 13:20:00 13:20:00 NAIF marie 2020-04-18 2020-04-18 Outpatient [facility], [facility] [id number]-7h 4ce c3qd7-1 Access 13:20:00 13:20:00 NAIF Bravo4926-a4f h36-1ac7- 9 [facility] f-52416307z [id number] alexander 117a2b 2020-04-09 2020-04-09 Outpatient [facility], [facility] [id number] Access 09:46:00 09:46:00 NAIF marie 2020-04-09 2020-04-09 Outpatient [facility], [facility] [id number] [id number] 037p1-u Access 09:46:00 09:46:00 NAIF Bravo4926-a4f 7fb-45a5- 8 [facility] f-[id number] eb3-4da5a2 alexander dfcadb 2020-03-30 2020-04-06 [facility] SerraTyshawn Hensley [facility] [id number] 19:31:00 13:42:00 Encounter Abel Alatorre Surinder zan [facility] 2020-04-04 2020-04-04 Outpatient [facility], [facility] [id number] Access 14:43:00 14:43:00 NAIF marie 2020-04-04 2020-04-04 Outpatient [facility], [facility] [id number]-[id number] 1fd e9640-x Access 14:43:00 14:43:00 NAIF Bravo4926-a4f l4b-1s30- 9 [facility] f-[id number] 186-296d9f alexander 6cbd5c 2020-04-01 2020-04-01 Anesthesia Jose Raul, [facility] [id number] 11:51:00 12:50:00 Event [facility] 2020-04-01 2020-04-01 Surgery Patrick [facility] [id number] 11:30:00 12:45:00 [facility] 2020-04-01 2020-04-01 Orders [facility] [id number] 00:00:00 00:00:00 Only [facility] 2020-03-30 2020-03-30 Emergency ER [facility] Emergency [id number] [facility] 19:22:00 19:22:00 2020-03-30 2020-03-30 Travel [facility] [id number] [facility] 00:00:00 00:00:00 [facility] 2020-03-19 2020-03-20 Emergency ER [facility] [id number] 23:25:00 02:51:00 David Wang [facility] 2020-03-19 2020-03-19 Emergency ER [facility] Emergency [id number] [facility] 23:15:00 23:15:00 2020-03-19 2020-03-19 Travel [facility] [id number] [facility] 00:00:00 00:00:00 [facility] 2020-03-08 2020-03-08 Outpatient DINH CALVO [facility] [id number] Access 12:03:00 12:03:00 Health 2020-03-08 2020-03-08 Outpatient DINH CALVO [facility] [id number] ww17rqws-l Access 12:03:00 12:03:00 e2-5xg5-80a s21-6f31-e [facility] 0-lu7ohh903 4x0-987k9a 0f4 74b4d5 2020-03-06 2020-03-06 Outpatient [facility] [id number] Access 15:00:00 15:00:00 NAIF marie 2020-03-06 2020-03-06 OFFICE/OUT [facility] rzr023vn-9c 35b 30edf-4 Access 15:00:00 15:00:00 PATIENT NAIF 22-4926-a4f 79d-4bf4- 8 Health VISIT EST f-34822036p [id number]-hl0763 alexander z7025c 2019 2019 Emergency ER [facility] Emergency [id number] [facility] 07:11:00 07:11:00 2019-11-20 2019-11-20 Outpatient [facility] [id number] Access 10:30:00 10:30:00 NAIF marie 2019-11-20 2019-11-20 Outpatient OMSTEFANI, [facility] bxm329fk-6b 8ff 71s0s-0 Access 10:30:00 10:30:00 NAIF Bravo4926-a4f ea8-46d7- a Health f-35389301u s29-g3tvd1 alexander [id number] 2019-11-09 2019-11-09 Outpatient STEFANI, [facility] [id number] Access 16:15:00 16:15:00 NAIF marie 2019-11-09 2019-11-09 OFFICE/OUT [facility], [facility] f4c 6z101-l Access 16:15:00 16:15:00 PATIENT NAIF Bravo4926-a4f y7u-9n25- 8 Health VISIT EST f-66968098t [id number] alexander [id number] 2019-09-28 2019-09-28 Outpatient STEFANI, [facility] mjk889wt-9e 0d0 g0483-a Access 13:21:00 13:21:00 NAIF Bravo4926-a4f 189-4af1- 9 Health f-06718903z 825-642061 alexander 45140y 2019-09-28 2019-09-28 Outpatient DINH CALVO [facility] 1tk0w9h7-0t [id number]-b Access 10:54:00 10:54:00 e2-7ly4-72e 730-4d70-a Health 0-ri3myk533 7ef-ba6cbd 0f4 25i763 2019-07-15 2019-07-15 Emergency [facility] [id number] [facility] 22:19:00 22:19:00 [id number] 2019-07-03 2019-07-03 OFFICE/OUT STEFANI, [facility] ewh844wx-3c 81c 746g0-k Access 10:30:00 10:30:00 PATIENT NAIF Bravo4926-a4f 8cf-4b4d- b Health VISIT EST f-[id number] 1z2-ntm5vs alexander [id number] 2019-05-09 2019-05-09 Outpatient [facility]EFANI, [facility]5s 405 d502n-y Access 08:16:00 08:16:00 NAIF Bravo4926-a4f u2t-02g2- b Health f-31195932d 12b-ff4e3d alexander ada41d 2019-05-01 2019-05-01 Outpatient NURSE, [facility] hes650ca-5z 07a t7s3c-6 Access 09:27:00 09:27:00 NURSE Hanna6-a4f eab-46d9-9 Health f-60210805k e49-29v98z alexander 3d7d99 2019-04-11 2019-04-11 Outpatient OMORI, [facility]-7a 608 j0t90-g Access 17:52:00 17:52:00 NAIF Bravo4926-a4f d74-2i7m- 9 [facility] f-24473265p 1ed-4c31d3 alexander a7dbdd 2019-04-06 2019-04-06 Outpatient OMORI, [facility]-7q cfd 12905-1 Access 17:33:00 17:33:00 NAIF Bravo4926-a4f 877-42c1- a Health f-29556305a n68-88678x alexander [id number] 2019-04-04 2019-04-04 OFFICE/OUT OMORI, [facility]-9c 0a8 0i31e-0 Access 14:30:00 14:30:00 PATIENT NAIF Bravo4926-a4f lyudmila-46ec- b Health VISIT EST f-[id number] fd1-2857e5 alexander ab27a1 2018-09-07 2018-09-07 Outpatient [facility]I, [facility]uw-9v 7e5 64fea-3 Access 00:00:00 00:00:00 NAIF Bravo4926-a4f 2ee-4361- b Health f-81114386u u9x-9u6m89 alexander 72554m 2018-09-06 2018-09-06 Outpatient OMORI, [facility] hsq786pf-4m 69a 0w5s0-7 Access 09:34:00 09:34:00 NAIF Bravo4926-a4f cf2-4291- 9 Health f-70783961n db4-f91ed2 alexander [id number] 2018-07-26 2018-07-26 Outpatient [facility] [id number] Access 00:00:00 00:00:00 H, PROVIDER Will garcia 2018-07-26 2018-07-26 Outpatient [facility] 7ro0j2b8-9r 2f51wj73-7 Access 00:00:00 00:00:00 H, PROVIDER e2-4ag9-64y 24b-42 3c-8 Health 0-ve6vsu570 036-5ea1f1 0f4 dc6a94 2018-07-26 2018-07-26 Outpatient CONTRERAS, [facility] frs322sk-3r 7 px4dg65-6 Access 00:00:00 00:00:00 MIRTA 22-4926-a4f n79-54l5-k Health f-70541287f c36-2u0h38 alexander d785c1 2018-07-26 2018-07-26 Outpatient OMORI, [facility] 0fm7k7y2-9r 877 jq082-0 Access 00:00:00 00:00:00 NAIF e2-4ae3-36f 397-493a- a Health 0-qj7koj137 4w7-n1lg9r 0f4 12075z 2018-07-26 2018-07-26 Outpatient OMORI, [facility] alo059ci-9k 499 a4i98-8 Access 00:00:00 00:00:00 NAIF 22-4926-a4f ba6-4f54- 8 Health f-08572506y 9s6-f8a13c alexander a45b7b 2018-07-25 2018-07-25 Outpatient OMORI, [facility] sqd310bd-6u 62b bbb95-e Access 00:00:00 00:00:00 NAIF 22-4926-a4f s54-5179- 8 Health f-43497675d cbf-5b3a7f alexander i3430p 2018-07-22 2018-07-22 Outpatient [facility] [id number] Access 00:00:00 00:00:00 H, PROVIDER Will garcia 2018-07-22 2018-07-22 Outpatient [facility] 2vs9r7j7-8d 3wqu1sg3-5 Access 00:00:00 00:00:00 H, PROVIDER april6uu2-88b 1b8-4b 5b-b Health 0-nl3lep097 54b-899e22 0f4 [id number] 9247-04-26 2018-07-22 Outpatient OMORI, [facility] eai602fd-7b 44d 79v17-e Access 00:00:00 00:00:00 NAIF 22-4926-a4f 8cb-4f46- b Health f-41077303t x23-303r1q alexander 871f2f 2018-07-22 2018-07-22 Outpatient DIANE, [facility] gih933qb-3y c 6388b0b-1 Access 00:00:00 00:00:00 MIRTA -4926-a4f f70-9mw3-v Health f-44336608j 39a-8t7658 alexander cfbbac 2018-06-28 2018-06-28 Outpatient [facility] [id number] Access 00:00:00 00:00:00 H, PROVIDER Will garcia 2018-06-28 2018-06-28 Outpatient [facility] 0xf5x3l0-8y 88266df7-k Access 00:00:00 00:00:00 H, PROVIDER valerie5ls3-27d 17d-4e 23-9 Health 0-cx4hff375 046-469fb5 0f4 bc45ce 2018-03-30 2018-03-30 Outpatient [facility] [id number] Access 00:00:00 00:00:00 H, PROVIDER Will garcia 2018-03-30 2018-03-30 Outpatient [facility] 7cg1d9r6-7w z12n5f80-1 Access 00:00:00 00:00:00 H, PROVIDER valerie9wr1-44v 710-43 22-8 Health 0-kh5dpc673 4w8-m8mb59 0f4 7d1bee 2018-03-30 2018-03-30 Outpatient DIANE, [facility] qkb040yi-6y 1 x3nq95d-3 Access 00:00:00 00:00:00 MIRTA 22-4926-a4f 56a-40cb-a Health f-39456616v p25-509q30 alexander [id number] 8719-01-02 2018-03-30 Outpatient JOSE FRANCISCO, [facility] svz361of-4a 448 3s7by-d Access 00:00:00 00:00:00 NAIF 22-4926-a4f 520-4c13- 8 Health f-55482273h u25-3zo4vc alexander [id number] 2017-12-28 2017-12-28 Outpatient [facility] [id number] Access 00:00:00 00:00:00 H, PROVIDER Will garcia 2017-12-28 2017-12-28 Outpatient [facility] 3fc7x3p2-3c 2683kjb9-7 Access 00:00:00 00:00:00 H, PROVIDER valerie9ai8-94x bed-49 71-9 Health 0-uj8fib608 255-40428p 0f4 06e2a8 2017-12-27 2017-12-27 Outpatient [facility] [id number] Access 00:00:00 00:00:00 H, PROVIDER Will garcia 2017-12-27 2017-12-27 Outpatient [facility] [id number] Access 00:00:00 00:00:00 H, PROVIDER [id number] 1d0-43 b0-a Health 0-mh4rto537 44c-ecfa29 0f4 5vz597 2017-12-20 2017-12-20 Outpatient DIANE, [facility] top043ep-4k 9 [id number] Access 08:48:00 08:48:00 MIRTA 22-4926-a4f 224-45e3-9 Health f-[id number] fc6-096b3d alexander 040c9a 2017-12-20 2017-12-20 Outpatient [facility] [id number] Access 00:00:00 00:00:00 H, PROVIDER Will garcia 2017-12-20 2017-12-20 Outpatient [facility] [id number] Access 00:00:00 00:00:00 H, PROVIDER valerie2ve7-66z b2c-4b 7d-b Health 0-aj2nvo117 l40-52i58a 0f4 c568b3 2017-12-20 2017-12-20 Outpatient IRIZARRY, [facility] jyb737ue-4t 79a 96912-v Access 00:00:00 00:00:00 SUKUMAR 22-4926-a4f eae-4c31- b Health f-[id number]-dl2954 alexander 0a3c1f 2017-12-20 2017-12-20 Outpatient JOSE FRANCISCO, [facility] [id number]-1z 2e3 eyq5e-2 Access 00:00:00 00:00:00 NAIF 22-4926-a4f da8-4f41- a Health f-[id number] 12d-3adf05 alexander 0d5ff7 2017-12-20 2017-12-20 Outpatient ENRIQUE, [facility] oby055os-6r a7c 9k669-t Access 00:00:00 00:00:00 CAROLYN 22-4926-a4f 8m7-1j7a-0 Health f-[id number] 3m0-t30y88 alexander 4b61d6 2017-12-20 2017-12-20 Outpatient JONAS, [facility] vha034bo-3e cf 47dxm5-d Access 00:00:00 00:00:00 MAEVE 22-4926-a4f 051-44b8-b Health f-[id number] 1u3-3h1148 alexander aee2d5 2017-07-14 2017-07-14 Outpatient [facility] [id number] Access 00:00:00 00:00:00 H, PROVIDER Will garcia 2017-07-14 2017-07-14 Outpatient [facility] [id number] [id number]-g Access 00:00:00 00:00:00 H, PROVIDER april6ek6-35z 109-47 80-a Health 0-dd7nrg757 [id number] 0f4 01e0fc 2017-07-14 2017-07-14 Outpatient [facility] 1zz4h1z4-6d f0f 1s77b-a Access 00:00:00 00:00:00 april0ps9-12p 98a-4568-b Health 0-lu1jqf127 001-941db6 0f4 9c42e9 2017-07-14 2017-07-14 Outpatient NUNEZ, [facility] [id number] 7d1 c2cav-0 Access 00:00:00 00:00:00 GAYTARI e2-0mt1-18s 7cb-4bf9-9 Health 0-pz4dzu145 l83-4936q2 0f4 [id number] 8726-03-16 2017-06-11 Outpatient OMORI, [facility] usk220zo-6t ded hp110-8 Access 00:00:00 00:00:00 NAIF 22-4926-a4f 849-421a- a Health f-10991361e 11b-54fdd4 alexander [id number] 2017-06-10 2017-06-10 Outpatient [facility] [id number] Access 00:00:00 00:00:00 H, PROVIDER Will garcia 2017-06-10 2017-06-10 Outpatient [facility] 1ff0j2v3-9z [id number]-6 Access 00:00:00 00:00:00 H, PROVIDER e2-3ri8-02o a95-4d 18-8 Health 0-tq0hlw040 67d-88e2c2 0f4 2eef4c 2017-06-10 2017-06-10 Outpatient DIANE, [facility] abf583at-3v e hm3k4dn-8 Access 00:00:00 00:00:00 MIRTA 22-4926-a4f 3ac-43d9-9 Health f-[id number] 6de-94p487 alexander ceaffe 2017-06-10 2017-06-10 Outpatient EM, [facility] [id number]-6a 27 e2tngm-9 Access 00:00:00 00:00:00 VITA 22-4926-a4f 0ec-4f3f -8 Health f-[id number] 3a9-1l6x49 alexander [id number] 2017-06-10 2017-06-10 Outpatient OMORI, [facility] fcm677dt-7p 6d7 hg234-y Access 00:00:00 00:00:00 NAIF 22-4926-a4f p6w-3857- b Health f-[id number] 499-gz448n alexander ney201 2017-04-09 2017-04-09 Outpatient OMORI, [facility] qmh514so-7f a22 8yxq0-2 Access 13:28:00 13:28:00 NAIF 22-4926-a4f 27b-4f1f- 8 Health f-40477591m 3ef-fa2b8f alexander 07200c 2017-04-09 2017-04-09 Outpatient [facility] [id number] Access 00:00:00 00:00:00 H, PROVIDER Will garcia 2017-04-09 2017-04-09 Outpatient [facility] [id number] [id number] Access 00:00:00 00:00:00 H, PROVIDER april1tv9-44w acc-4b a3-b Health 0-tb6mfa989 j18-26dz4c 0f4 4v5643 2017-04-09 2017-04-09 Outpatient DIANE, [facility] vji349py-7p d [id number] Access 00:00:00 00:00:00 MIRTA -4926-a4f be7-40fa-9 Health f-[id number] fad-beba5c alexander 745e5a 2017-03-30 2017-03-30 Outpatient [facility] [id number] Access 00:00:00 00:00:00 H, PROVIDER Will garcia 2017-03-30 2017-03-30 Outpatient [facility] 4ur4d5v6-6n o9z4c358-a Access 00:00:00 00:00:00 H, PROVIDER april0bq5-11x e7f-41 b3-8 Health 0-ai3cur407 0ab-1ve159 0f4 5ba25a 2017-02-09 2017-02-09 Outpatient [facility] [id number] Access 00:00:00 00:00:00 H, PROVIDER Will garcia 2017-02-09 2017-02-09 Outpatient [facility] 5cm3l5k1-4h 64u5pc5q-9 Access 00:00:00 00:00:00 H, PROVIDER valerie3lj1-83u eed-49 91-9 Health 0-gj2vds577 725-74331d 0f4 de8ac2 2017-02-09 2017-02-09 Outpatient JOSE FRANCISCO, [facility] qsf956si-6v b35 ru465-4 Access 00:00:00 00:00:00 NAIF 22-4926-a4f p89-0l16- a Health f-99989566q f75-79s6g7 alexander 88c1fc 2017-02-09 2017-02-09 Outpatient DIANE, [facility] vks533mm-2n d 40o1d32-u Access 00:00:00 00:00:00 MIRTA 22-4926-a4f 34c-46bd-b Health f-42727066w 70f-l7535a alexander faf56f 2016-12-15 2016-12-15 Outpatient [facility] [id number] Access 00:00:00 00:00:00 H, PROVIDER Will garcia 2016-12-15 2016-12-15 Outpatient [facility] 4eg4k7w6-9t [id number] Access 00:00:00 00:00:00 H, PROVIDER gabby-1qf0-31m 3ba-4a 3c-8 Health 0-jm3esc836 9fd-cceee0 0f4 5f5e8e 2016-12-15 2016-12-15 Outpatient [facility] [id number]-79 65tye3w3-7 Access 00:00:00 00:00:00 45-5a6d-t7m a1i-56v2-v Health d-a7a447662 00b-ed1c16 354 e7dd8d 2016-12-12 2016-12-12 Outpatient [facility] [id number] Access 00:00:00 00:00:00 H, PROVIDER Will garcia 2016-12-12 2016-12-12 Outpatient [facility] 8lt9f7w3-6y n0741yt7-h Access 00:00:00 00:00:00 H, PROVIDER e2-9pe6-20x 6fa-4f 7f-9 Health 0-zq4tnr636 402-fe6f8d 0f4 1526bf 2016-12-12 2016-12-12 Outpatient DELAROSA, [facility] 4qh9h7i3-7t 91 5o35dr-9 Access 00:00:00 00:00:00 CHRISTINA e2-2al2-95s v1g-9gtk- 9 Health 0-pl9grl272 558-4d60f7 0f4 f917d6 2016-12-11 2016-12-11 Outpatient CHARLY [facility] 32h6007c-02 a58r7m3c-2 Access 00:00:00 00:00:00 45-6i0q-v4s 3fe-4dc9-9 Health d-w3j592635 474-f474cb 354 c4eb2b 2016-12-10 2016-12-10 Outpatient [facility] [id number] Access 00:00:00 00:00:00 H, PROVIDER Will garcia 2016-12-10 2016-12-10 Outpatient [facility] 9yw2f7w7-2r 948gst1b-2 Access 00:00:00 00:00:00 H, PROVIDER april3vq7-69x 706-4a aa-b Health 0-pb8vmd563 af4-5611ae 0f4 398333 9318-09-14 2016-12-10 Outpatient [facility] 99y4070l-57 8gc02e49-n Access 00:00:00 00:00:00 45-8e7z-j5p f9s-6465-p Health d-d6e746995 n2d-55q4e8 354 5b51dc 2016-12-01 2016-12-01 Outpatient [facility] 107 [id number] Access 00:00:00 00:00:00 H, PROVIDER Will garcia 2016-12-01 2016-12-01 Outpatient [facility] 5hj5j7a0-9p 0vr2d8n2-1 Access 00:00:00 00:00:00 H, PROVIDER april0du0-43m 4f5-4c 72-9 Health 0-ye5axr342 g9r-1eq160 0f4 8ff05c 2016-12-01 2016-12-01 Outpatient DIPIKA, [facility] 67b1216c-10 42 gz20uq-8 Access 00:00:00 00:00:00 LAVELLE 45-6n2c-p7c 636-4710-8 Health d-j5z416816 2ff-2f9a6a 354 ef57e5 2016-12-01 2016-12-01 Outpatient CHARLY [facility] 31r6048q-01 foew7602-d Access 00:00:00 00:00:00 45-1x5r-i8e df0-4210-a Health d-a9y026140 8i8-561z8k 354 0k3093 2016-11-27 2016-11-27 Outpatient [facility] 107 [id number] Access 00:00:00 00:00:00 H, PROVIDER Will garcia 2016-11-27 2016-11-27 Outpatient [facility] 0hl1p3s7-3t zyb4h9aj-1 Access 00:00:00 00:00:00 H, PROVIDER gabby-2bi4-09t db1-44 51-9 Health 0-kx6eox604 9m3-u0x895 0f4 115431 9059-09-01 2016-11-27 Outpatient DIPIKA, [facility] 45p1505f-25 72 e9ou31-3 Access 00:00:00 00:00:00 LAVELLE Justo-2b9r-z5d d13-31j4-l Health d-u7k529074 384-b0c4cd 354 eb80b5 2016-11-26 2016-11-26 Outpatient [facility] 107 [id number] Access 00:00:00 00:00:00 H, PROVIDER Will garcia 2016-11-26 2016-11-26 Outpatient [facility] 1xk5v2d9-1a 9m768la2-q Access 00:00:00 00:00:00 H, PROVIDER gabby-4lf4-71g c45-46 cf-b Health 0-qu2lwr242 4ad-4c0e68 0f4 37dc7c 2016-11-26 2016-11-26 Outpatient DORISR, [facility] 01r9452i-73 c0 gp8069-8 Access 00:00:00 00:00:00 LAVELLE 45-7s2r-d7h ae7-40e5-a Health d-m4x331575 i18-7x11g8 354 fc21e9 2016-11-20 2016-11-20 Outpatient [facility] 107 [id number] Access 00:00:00 00:00:00 H, PROVIDER Will garcia 2016-11-20 2016-11-20 Outpatient [facility] 7bz1j1v4-0w [id number] Access 00:00:00 00:00:00 H, PROVIDER april5if0-70i 2e2-42 0d-8 Health 0-gm0zyg456 e95-264w36 0f4 86y035 2016-11-20 2016-11-20 Outpatient CANAMAR, [facility] [id number]-51 60 01l313-s Access 00:00:00 00:00:00 LAVELLE 45-2w8b-h0d 250-49d0-a Health d-k5r750406 aa8-0b8ad1 354 204313 2050-08-23 2016-11-18 Outpatient [facility] [id number] Access 00:00:00 00:00:00 H, PROVIDER Will garcia 2016-11-18 2016-11-18 Outpatient [facility] 7ii9h1l3-6s [id number]-n Access 00:00:00 00:00:00 H, PROVIDER april9sb2-43g 7d4-4d a9-8 Health 0-ex3izw971 w03-40zqxk 0f4 c11e26 2016-11-18 2016-11-18 Outpatient [facility]LY [facility] [id number]-66 [id number] Access 00:00:00 00:00:00 45-4o5w-x4r ea3-4257-a Health d-o3v786903 2cc-9275f9 354 e49a35 2016-11-12 2016-11-12 Outpatient CANAMAR, [facility] 36o6702r-33 29 47k965-t Access 00:00:00 00:00:00 LAVELLE My7q5n-y5p n1r-4sk6-q Health d-f9m154047 g5q-369kc7 354 nm2285 2016-11-11 2016-11-11 Outpatient [facility] [id number] Access 00:00:00 00:00:00 H, PROVIDER Will garcia 2016-11-11 2016-11-11 Outpatient [facility] 0xp5f1l0-7i 2r41707v-2 Access 00:00:00 00:00:00 H, PROVIDER valerie0xo7-09v 968-42 07-b Health 0-mj1cly244 w51-929816 0f4 9f36c8 2016-11-11 2016-11-11 Outpatient DIPIKA, [facility] 83e2658a-21 7c n71e6h-m Access 00:00:00 00:00:00 LVAELLE 45-2q1o-u4a 633-4aa9-8 Health d-g7d238544 fff-400159 354 ee4a0e 2016-10-30 2016-10-30 Outpatient [facility] [id number] Access 00:00:00 00:00:00 H, PROVIDER Will garcia 2016-10-30 2016-10-30 Outpatient [facility] 3nz4m7v5-3h [id number] Access 00:00:00 00:00:00 H, PROVIDER tatyana9jj2-00x 47b-46 3e-8 Health 0-nt2xog821 x1f-zba5g8 0f4 0d6975 2016-10-30 2016-10-30 Outpatient [facility] [id number]-74 9776k23c-j Access 00:00:00 00:00:00 45-8x1x-p5t evert-47eb-b Health d-j0z667372 9n9-88x6ub 354 7383d1 2016-10-26 2016-10-26 Outpatient [facility] 107 [id number] Access 00:00:00 00:00:00 H, PROVIDER Will garcia 2016-10-26 2016-10-26 Outpatient [facility] 0cm1v5c0-1n 8na71p76-2 Access 00:00:00 00:00:00 H, PROVIDER april1ed7-21s 1e9-4c db-b Health 0-ni3vxa787 x19-p085yq 0f4 48ce57 2016-10-26 2016-10-26 Outpatient ISAURA, [facility] 0kj1o5s0-7u e8 43ec49-1 Access 00:00:00 00:00:00 CHRISTINA e2-4cw8-83e v9q-3499- 9 Health 0-cy4jlo389 h0a-e1s9l6 0f4 7373c9 2016-10-26 2016-10-26 Outpatient OMORI, [facility] 6jq5p6s1-9s 5e5 4b7pa-5 Access 00:00:00 00:00:00 NAIF e2-2pg3-98l i68-9j28- b Health 0-yh4izb005 000-dd7396 0f4 79f96a 2016-10-09 2016-10-09 Outpatient CANAMAR, [facility] 10j4795y-63 cf 6536cf-2 Access 00:00:00 00:00:00 LAVELLE Pepe4i3u-i8d 038-47e9-8 Health d-a7b640485 93d-796d4d 354 1ee1de 2016-10-08 2016-10-08 Outpatient [facility] [id number] Access 00:00:00 00:00:00 H, PROVIDER Will garcia 2016-10-08 2016-10-08 Outpatient [facility] 4ce1i3g0-5d 1801v990-g Access 00:00:00 00:00:00 H, PROVIDER valerie3vq2-38t 757-44 91-a Health 0-kr0aqe654 338-7c8ea0 0f4 d0d012 2016-10-08 2016-10-08 Outpatient CANAMAR, [facility] 36g6865y-55 46 ua3aa3-2 Access 00:00:00 00:00:00 LAVELLE Pepe4u5q-f7d z66-0j3u-u Health d-i7v514175 65d-fda44a 354 c196f4 2016-10-05 2016-10-05 Outpatient [facility] 107 [id number] Access 00:00:00 00:00:00 H, PROVIDER Will garcia 2016-10-05 2016-10-05 Outpatient [facility] 4fq1z1z3-5n 39o1lr0j-8 Access 00:00:00 00:00:00 H, PROVIDER valerie5dm7-59s 137-4e 58-a Health 0-st3puy694 0aa-16825c 0f4 ag722r 2016-10-05 2016-10-05 Outpatient DIPIKA, [facility] 92h5976i-42 c9 9c59s4-r Access 00:00:00 00:00:00 LAVELLE 45-2v3x-i1m 1w3-319t-u Health d-n9z451495 g01-br60jy 354 157610 7183-06-29 2016-09-24 Outpatient [facility] 107 [id number] Access 00:00:00 00:00:00 H, PROVIDER Will garcia 2016-09-24 2016-09-24 Outpatient [facility] 7xk3q7c1-7j 46td0z33-a Access 00:00:00 00:00:00 H, PROVIDER april7am9-29j 9da-4d 9e-a Health 0-zm1qcu629 r07-76409c 0f4 0747d9 2016-09-24 2016-09-24 Outpatient ISAURA, [facility] 8qt7n0o8-5e af 394980-l Access 00:00:00 00:00:00 CHRISTINA e2-2tb1-24a b95-828z- b Health 0-rt5uvb407 o3v-9k612v 0f4 7bee42 2016-09-24 2016-09-24 Outpatient JOSE FRANCISCO, [facility] 0bq3w0r6-4o 060 8b5u3-2 Access 00:00:00 00:00:00 NAIF e2-0dr2-71q 4bb-4165- a Health 0-vf8hva182 98a-9k006w 0f4 94l805 2016-09-22 2016-09-22 Outpatient [facility] [id number] Access 00:00:00 00:00:00 H, PROVIDER Will garcia 2016-09-22 2016-09-22 Outpatient [facility] 7sv9h1u9-2t 9n5172br-3 Access 00:00:00 00:00:00 H, PROVIDER valerie1gu0-63h 072-4c 2a-9 Health 0-ac9tph695 094-b1ac8e 0f4 1311cf 2016-09-22 2016-09-22 Outpatient TIMA, [facility] 1jo5b9u4-3j 292 72ebd-f Access 00:00:00 00:00:00 OSMAN -9kl0-88t 330-4e57-a Health 0-ti3bhl417 92e-33cd44 0f4 3z2249 2016-09-22 2016-09-22 Outpatient DIANE, [facility] 3bf8m5b2-1n 2 0e3xfr2-l Access 00:00:00 00:00:00 MIRTA -7zi3-05x 87b-4174-a Health 0-wl1nzd912 470-45w687 0f4 1573c2 2016-08-26 2016-08-26 Outpatient [facility] [id number] Access 00:00:00 00:00:00 H, PROVIDER Will garcia 2016-08-26 2016-08-26 Outpatient [facility] 7qe4p9l6-7e t482mhvj-q Access 00:00:00 00:00:00 H, PROVIDER -9dz5-62w a1b-4a 92-8 Health 0-zh9lmk511 e32-2reo29 0f4 8lo348 2016-08-26 2016-08-26 Outpatient DELAROSA, [facility] 0sr8d6f1-9q da xee69z-1 Access 00:00:00 00:00:00 CHRISTINA e2-1ew0-34f 81b-44be- a Health 0-pb8hei230 452-2c4870 0f4 4p7685 2016-08-26 2016-08-26 Outpatient IRIZARRY, [facility] 4ta6s5q1-6x afb 4ds09-9 Access 00:00:00 00:00:00 KATELINE e2-9sv0-58u 026-4182- b Health 0-vm1cop521 11d-2k9805 0f4 5e8093 2016-08-26 2016-08-26 Outpatient OMORI, [facility] 5fh2c7s1-7g c21 101ca-e Access 00:00:00 00:00:00 NAIF -7ot6-16n n8d-4908- a Health 0-ng6zsl237 ec7-h96778 0f4 92c4e9 2016-08-03 2016-08-03 Outpatient TIMA, [facility] lls919vq-0o e56 4ce99-t Access 16:13:00 16:13:00 OSMAN 22-4926-a4f 17d-4116-b Health f-85825070e 320-16acc1 alexnader 11df8e 2016-07-29 2016-07-29 Outpatient [facility] [id number] Access 00:00:00 00:00:00 H, PROVIDER Will garcia 2016-07-29 2016-07-29 Outpatient [facility] 4wf4s5u0-0o 3ybx2434-0 Access 00:00:00 00:00:00 H, PROVIDER april9pl7-05p 2c6-43 ca-8 Health 0-wl0yrt537 fe8-48fadf 0f4 54c2ba 2016-07-29 2016-07-29 Outpatient TIMA, [facility] gih340bf-7h a6f 34ip6-7 Access 00:00:00 00:00:00 OSMAN 22-4926-a4f 6ad-4eac-9 Health f-55253201j ab0-86e98c alexander h6206z 2016-07-29 2016-07-29 Outpatient DIANE, [facility] fdg408ir-7h d r88fn08-2 Access 00:00:00 00:00:00 MIRTA 22-4926-a4f 0g9-11yf-5 Health f-01330501r 67a-3d9ddd alexander wiq279 2016-07-24 2016-07-24 Outpatient [facility] [id number] Access 00:00:00 00:00:00 H, PROVIDER Will garcia 2016-07-24 2016-07-24 Outpatient [facility] 4rw6m1q9-8k p76015o5-1 Access 00:00:00 00:00:00 H, PROVIDER april3oy6-58k 046-4f 02-a Health 0-iz1lhc453 3a2-55wc83 0f4 062d54 2016-07-24 2016-07-24 Outpatient DELAROSA, [facility] ucl387dp-2k d2 874q42-a Access 00:00:00 00:00:00 CHRISTINA 22-4926-a4f f4h-64xa- b Health f-27938132h a4u-436161 alexander c19d1a 2016-07-24 2016-07-24 Outpatient JOSE FRANCISCO, [facility] rcg801mp-0q e3f f1j18-f Access 00:00:00 00:00:00 NAIF 22-4926-a4f c8g-44l1- 8 Health f-20124638n bba-be69db alexander 0b9f49 2016-07-17 2016-07-17 Outpatient ENRIQUE, [facility] xwi918lg-3l 163 z72az-6 Access 00:00:00 00:00:00 CAROLYN 22-4926-a4f m21-4363-k Health f-32149551a ec6-9ef36c alexander 565023 1387-04-20 2016-07-16 Outpatient [facility] [id number] Access 00:00:00 00:00:00 H, PROVIDER Will garcia 2016-07-16 2016-07-16 Outpatient [facility] 0mt9q0d0-6w 898l92iy-7 Access 00:00:00 00:00:00 H, PROVIDER e2-2az9-30x f7c-42 66-9 Health 0-oz2mwl607 762-340d90 0f4 1876fa 2016-07-16 2016-07-16 Outpatient IRIZARRY, [facility] 17z4881q-11 692 3m0g9-s Access 00:00:00 00:00:00 KATELINE 45-7d9p-r6b 17f-442e- a Health d-t7b799602 ddf-2f6402 354 e90b6a 2016-07-16 2016-07-16 Outpatient CONTRERAS, [facility] clk911tq-6t c 0387fac-c Access 00:00:00 00:00:00 MIRTA 22-4926-a4f 06b-4903-a Health f-66963984s v73-8l6w09 alexander n20589 2016-07-16 2016-07-16 Outpatient CHARLY BARDALES [facility] 18a2491i-26 08vru767-i Access 00:00:00 00:00:00 45-4x0q-j9s 049-4b28-8 Health d-u5i993073 36f-90r025 354 gko326 2016-07-16 2016-07-16 Outpatient ENRIQUE, [facility] czx084ls-0h 2cb 766n2-u Access 00:00:00 00:00:00 CAROLYN 22-4926-a4f ec3-43e2-b Health f-86341001p 989-acffbb alexander acf4d2 2016-07-14 2016-07-14 Outpatient [facility] [id number] Access 00:00:00 00:00:00 H, PROVIDER Will garcia 2016-07-14 2016-07-14 Outpatient [facility] 8ge8m6z4-8y 366u7k1s-3 Access 00:00:00 00:00:00 H, PROVIDER april8re4-36h 52f-4d 8d-9 Health 0-ax2atu747 596-929d1e 0f4 5cbb75 2016-07-14 2016-07-14 Outpatient DIANE, [facility] ahk521jo-3d f [id number] Access 00:00:00 00:00:00 MIRTA 22-4926-a4f 486-43ef-b Health f-46859910o 58e-c764a4 alexander 4a23b4 2016-07-14 2016-07-14 Outpatient TIMA, [facility] xdk272uu-7b b38 1kk1x-6 Access 00:00:00 00:00:00 OSMAN 22-4926-a4f 9o6-2u63-e Health f-61842210r 532-cac9af alexander bf28b2 2016-07-06 2016-07-06 Outpatient [facility] [id number] Access 00:00:00 00:00:00 H, PROVIDER Will garcia 2016-07-06 2016-07-06 Outpatient [facility] 7ze5c6m5-3e 485c8rc4-z Access 00:00:00 00:00:00 H, PROVIDER april0gy7-06u 7e3-46 ad-b Health 0-kn7tlc403 60a-89346b 0f4 192658 0401-04-10 2016-07-06 Outpatient TIMA, [facility] tps432gm-8e ca6 0064f-c Access 00:00:00 00:00:00 OSMAN 22-4926-a4f 308-477e-b Health f-47086936i 9u7-l5w20d alexander befcac 2016-07-06 2016-07-06 Outpatient DIANE, [facility] vhi062lt-2x a 36d091r-3 Access 00:00:00 00:00:00 MIRTA 22-4926-a4f j47-0r90-4 Health f-96002684t e2j-mvj13p alexander z0483l 2016-07-01 2016-07-01 Outpatient [facility] [id number] Access 00:00:00 00:00:00 H, PROVIDER Will garcia 2016-07-01 2016-07-01 Outpatient [facility] 8oq3f9c0-3j o511i4s2-3 Access 00:00:00 00:00:00 H, PROVIDER e2-1ld4-78i fbd-41 57-9 Health 0-pp7ver691 3h9-09785k 0f4 13dfc5 2016-07-01 2016-07-01 Outpatient CHARLY BARDALES [facility] 19i1079r-01 o51v0q84-3 Access 00:00:00 00:00:00 45-8g7o-p5u 8ef-44fa-9 Health d-i7k286338 145-03bbe1 354 734d1e 2016-07-01 2016-07-01 Outpatient IRIZARRY, [facility] 49q2739q-93 9f6 1438d-f Access 00:00:00 00:00:00 KATELINE 45-5i3m-m2h k80-2nlp- 9 Health d-r6r748440 3f5-2nc8u0 354 652936 4911-04-02 2016-06-28 Outpatient TIMA, [facility] zpm563xf-5z ba4 m4ly4-4 Access 00:00:00 00:00:00 OSMAN 22-4926-a4f fb6-4103-8 Health f-66473121s l12-5431u4 alexander 6r552y 2016-06-25 2016-06-25 Outpatient [facility] [id number] Access 00:00:00 00:00:00 H, PROVIDER Will garcia 2016-06-25 2016-06-25 Outpatient [facility] 4iv3y6l0-3f 28824ui4-6 Access 00:00:00 00:00:00 H, PROVIDER e2-2ih6-50i 98e-47 c8-a Health 0-of5znh874 t2c-e514z1 0f4 4f1aaa 2016-06-25 2016-06-25 Outpatient TIMA, [facility] fqv985su-2a 9e0 5hx6c-3 Access 00:00:00 00:00:00 OSMAN 22-4926-a4f 533-4298-a Health f-12752765i 3x4-l3m2aw alexander 592768 8753-03-30 2016-06-25 Outpatient DELAROSA, [facility] 40u5608f-02 5d 2ywm1n-3 Access 00:00:00 00:00:00 CHRISTINA 45-9p1q-h4w u58-1180- a Health d-z9f693066 74d-bc9f79 354 d26830 2016-06-25 2016-06-25 Outpatient OMORI, [facility] 84w8765k-26 643 w8bj0-6 Access 00:00:00 00:00:00 NAIF 45-4t1q-r1f 9w3-14d1- b Health d-w8c044239 def-275d83 354 yb262t 2016-06-25 2016-06-25 Outpatient CONTRERAS, [facility] wvl097eg-6i f ne76379-6 Access 00:00:00 00:00:00 MIRTA 22-4926-a4f m7j-78qf-z Health f-47238749d 8c9-488og2 alexander bc1d2c 2016-06-08 2016-06-08 Outpatient [facility] [id number] Access 00:00:00 00:00:00 H, PROVIDER Will garcia 2016-06-08 2016-06-08 Outpatient [facility] 5tj6p0s6-3f [id number]-y Access 00:00:00 00:00:00 H, PROVIDER e2-5rw7-53r d53-4b 39-b Health 0-xr4wjo304 49d-bb0c97 0f4 a273a3 2016-06-08 2016-06-08 Outpatient CHARLY BARDALES [facility] [id number] Access 00:00:00 00:00:00 45-6d5r-y6s 84c-42c0-9 Health d-m1n808776 644-e9c44e 354 a4d7b9 2016-06-08 2016-06-08 Outpatient IRIZARRY, [facility] [id number] cdb 03510-u Access 00:00:00 00:00:00 KATBRIGIDA 45-0z0z-f6w 41d-4957- b Health d-u6r725037 3u6-f7xuvx 354 38a8c2 2016-05-19 2016-05-19 Outpatient [facility] [id number] Access 00:00:00 00:00:00 H, PROVIDER Will garcia 2016-05-19 2016-05-19 Outpatient [facility] 1ed4m4b5-7z 0g0li7j4-7 Access 00:00:00 00:00:00 H, PROVIDER e2-7wo1-80s tonya-4c 95-a Health 0-ig7vbo462 q7d-y0ln2b 0f4 0e2daa 2016-05-19 2016-05-19 Outpatient TIMA, [facility] 9tg4x8o2-3g fc5 8m13x-3 Access 00:00:00 00:00:00 OSMAN e2-8vl9-51c ad3-40d5-b Health 0-ul6eps006 bc9-a48b2d 0f4 65g187 2016-05-19 2016-05-19 Outpatient CONTRERAS, [facility] 9xm3n4g7-0s 8 hy480w9-5 Access 00:00:00 00:00:00 MIRTA e2-5gm7-09c 2p4-1659-u Health 0-ak9noh792 w75-j4x407 0f4 39beb0 2016-05-15 2016-05-15 Outpatient [facility] [id number] Access 00:00:00 00:00:00 H, PROVIDER Will garcia 2016-05-15 2016-05-15 Outpatient [facility] 7wi3r6g2-0q p08kv41m-u Access 00:00:00 00:00:00 H, PROVIDER tatyana5ag0-46y bbe-4f 60-b Health 0-yf9sop435 941-41ae95 0f4 cy0121 2016-05-15 2016-05-15 Outpatient CONTRERAS, [facility] [id number] f q8k5s16-2 Access 00:00:00 00:00:00 MIRTA 45-9c4x-y3r 6r0-2256-8 Health d-n7y731943 311-s7e207 354 835fae 2016-05-15 2016-05-15 Outpatient OMORI, [facility] [id number]-70 2b7 87f56-0 Access 00:00:00 00:00:00 NAIF 45-4e2w-c3u 373-4ac8- b Health d-i5c867439 6i2-q767fl 354 bv8637 2016-05-15 2016-05-15 Outpatient DELAROSA, [facility] [id number]-37 d3 4gxct2-3 Access 00:00:00 00:00:00 CHRISTINA 45-5z4a-n3h m56-4803- a Health d-b6f084295 [facility]64632c 354 27v256 2016-05-15 2016-05-15 Outpatient IRIZARRY, [facility] [id number] e10 [id number] Access 00:00:00 00:00:00 KATELINE 45-0d1a-f2u x8o-1a3l- a Health d-b9v538997 358-d132b6 354 e444e3 2016-05-11 2016-05-11 Outpatient [facility] [id number] Access 00:00:00 00:00:00 H, PROVIDER Will garcia 2016-05-11 2016-05-11 Outpatient [facility] 3yq1w1i9-7y 8t723j4u-2 Access 00:00:00 00:00:00 H, PROVIDER valerie3fe7-93m 986-4e 16-9 Health 0-cq7lql314 1t6-32e577 0f4 189300 3413-02-13 2016-05-11 Outpatient FOREIGN, [facility] [id number]-75 [id number] Access 00:00:00 00:00:00 FRANKLIN 45-4d1b-c5j ee0-4498-a Health d-p8f498459 cb7-627bcc 354 62c67e 2016-05-11 2016-05-11 Outpatient CONTRERAS, [facility] [id number]-70 f 1lp0opr-g Access 00:00:00 00:00:00 MIRTA 45-9c7z-z7k 36e-4988-b Health d-h0q486908 [facility] 727e3d 2016-05-08 2016-05-08 Outpatient [facility] [id number] Access 00:00:00 00:00:00 H, PROVIDER Will garcia 2016-05-08 2016-05-08 Outpatient [facility] 6oy8w6q0-4a [id number]-3 Access 00:00:00 00:00:00 H, PROVIDER e2-1mn2-82x e1f-48 2e-8 Health 0-sf3gls658 2db-jof151 0f4 bc16c2 2016-05-08 2016-05-08 Outpatient SHELBY, [facility] 6ak6f9g5-9g 18c z9494-t Access 00:00:00 00:00:00 SAMANTHA e2-5es7-43z 27d-42df- a Health 0-mg8rsm208 bb7-01212h 0f4 20n593 2016-05-08 2016-05-08 Outpatient CONTRERAS, [facility] 5sq9f0s2-2x 3 t448j3x-8 Access 00:00:00 00:00:00 MIRTA e2-0db6-58h 353-45e9-a Health 0-cs4zcu722 be5-h63578 0f4 8412be 2016-05-05 2016-05-05 Outpatient SHELBY, [facility] 9rb2h1j5-7q 773 s5t8q-1 Access 00:00:00 00:00:00 SAMANTHA e2-4an4-28w 09b-4a43- a Health 0-dk9zqc839 83f-02ffd4 0f4 8eed89 2016-05-04 2016-05-04 Outpatient [facility] [id number] Access 00:00:00 00:00:00 H, PROVIDER Will garcia 2016-05-04 2016-05-04 Outpatient [facility] 4fg0e9g3-0w 08lenbc5-6 Access 00:00:00 00:00:00 H, PROVIDER e2-5tq5-21k 964-4e b0-8 Health 0-hy4ots859 fd5-e283fd 0f4 1cba2b 2016-05-04 2016-05-04 Outpatient SHELBY, [facility] 3yt3c3g4-5x c7e 0j789-8 Access 00:00:00 00:00:00 SAMANTHA e2-9kb2-27t 677-4bd7- b Health 0-un6wyp442 14f-f6fe70 0f4 44010z 2016-05-04 2016-05-04 Outpatient CONTRERAS, [facility] 3gz6m8i8-7q d [id number]-h Access 00:00:00 00:00:00 MIRTA e2-6li1-78t 294-4fb9-a Health 0-qz1mjy519 51f-f628b0 0f4 b9123z 2016-04-27 2016-04-27 Outpatient [facility] [id number] Access 00:00:00 00:00:00 H, PROVIDER Will garcia 2016-04-27 2016-04-27 Outpatient [facility] 4an3y0g3-9f [id number] Access 00:00:00 00:00:00 H, PROVIDER e2-2fi5-50n 0c7-4f f1-8 Health 0-mz0ikv553 de9-3790eb 0f4 4239d8 2016-04-27 2016-04-27 Outpatient CONTRERAS, [facility] 9dy1i9j5-7t 3 2lvb246-3 Access 00:00:00 00:00:00 MIRTA e2-2kd5-41g 1e5-2l30-n Health 0-de5xxn409 2p7-o50489 0f4 6d563o 2016-04-27 2016-04-27 Outpatient DESTINY, [facility] 9vf1t1z1-9n edf 8y7p9-u Access 00:00:00 00:00:00 MELVA e2-2cj5-26n 4fb-4099-9 Health 0-iq7vrx594 ca8-42b5cf 0f4 047ded 2016-04-24 2016-04-24 Outpatient [facility] [id number] Access 00:00:00 00:00:00 H, PROVIDER Will garcia 2016-04-24 2016-04-24 Outpatient [facility] 5pw4j8h9-7u sw6vwo8c-z Access 00:00:00 00:00:00 H, PROVIDER e2-6vn1-04z 5aa-41 ee-8 Health 0-xe0cac286 bfc-w20487 0f4 z6455u 2016-04-24 2016-04-24 Outpatient FOREIGN, [facility] [id number]-50 [id number] Access 00:00:00 00:00:00 FRANKLIN 45-8c3u-b1x 7f8-9h55-2 Health d-o5l905779 fee-9mm698 354 f7e46e 2016-04-24 2016-04-24 Outpatient ISAURA, [facility] [id number]-24 47 0n14z6-0 Access 00:00:00 00:00:00 CHRISTINA 45-3l3h-k2p 287-4cce- 9 Health d-k5u349446 4h3-334u32 354 0c8ebc 2016-04-24 2016-04-24 Outpatient SHELBY, [facility] 2le0x2y3-4g 978 7c512-b Access 00:00:00 00:00:00 SAMANTHA e2-0qk8-28q 3ec-4aa4- 8 Health 0-of1krt073 i16-92fyf8 0f4 cfdb01 2016-04-24 2016-04-24 Outpatient DIANE, [facility] 7ti3h0h8-5n 3 c3vt0e3-8 Access 00:00:00 00:00:00 MIRTA e2-0zr0-82a 39f-490c-b Health 0-om3ypj093 8ce-a94b3d 0f4 611fdf 2016-04-24 2016-04-24 Outpatient DIANE, [facility] 04j3082z-29 2 2007983-g Access 00:00:00 00:00:00 MIRTA 45-7h1z-z3r 86a-4439-a Health d-i0r870762 p2v-55z1gn 354 218d45 2016-04-24 2016-04-24 Outpatient IRIZARRY, [facility] 93z7739l-44 fc7 8687c-4 Access 00:00:00 00:00:00 KATBRIGIDA 45-7a8b-r9y g7u-8p53- a Health d-s1d252678 e2a-3ey693 354 9f3b30 2016-04-24 2016-04-24 Outpatient OMORI, [facility] 78n8723d-77 d38 g2j03-0 Access 00:00:00 00:00:00 NAIF 45-3p5x-c3g 768-4bfb- b Health d-d3w526782 f0i-84m2x7 354 4dd6fd 2016-04-23 2016-04-23 Outpatient [facility] [id number] Access 00:00:00 00:00:00 H, PROVIDER Will garcia 2016-04-23 2016-04-23 Outpatient [facility] 2aw6k0h7-5a b6cr3s49-y Access 00:00:00 00:00:00 H, PROVIDER e2-4ee8-32s be8-4b 21-9 Health 0-ga3hdu956 3dc-5f1e84 0f4 22d77d 2016-04-23 2016-04-23 Outpatient DIANE, [facility] 56m0032g-14 6 u88i68d-h Access 00:00:00 00:00:00 MIRTA 45-9l0c-c7p 994-45ef-b Health d-w3j683645 3t5-g6331k 354 51ffb4 2016-04-23 2016-04-23 Outpatient FOREIGN, [facility] 42x6238m-60 20e660ub-y Access 00:00:00 00:00:00 FRANKLIN 45-8t2a-m6p eaf-4e51-9 Health d-p6z718256 2t0-x3z256 354 7999a2 2016-04-20 2016-04-20 Outpatient [facility] 107 [id number] Access 00:00:00 00:00:00 H, PROVIDER Will garcia 2016-04-20 2016-04-20 Outpatient [facility] 9js1h6h8-2y [id number]-9 Access 00:00:00 00:00:00 H, PROVIDER e2-7cg3-58b a9b-45 15-9 Health 0-fa1nkr243 8n1-653755 0f4 896045 3162-01-23 2016-04-20 Outpatient DESTINY, [facility] 4yh8j7t2-5l 407 25o1y-t Access 00:00:00 00:00:00 MELVA e2-2fv5-25b 067-4720-a Health 0-gm1nlm138 679-47bd8d 0f4 636a60 2016-04-20 2016-04-20 Outpatient DIANE, [facility] 0wk0p8t2-5n 2 63vax5b-q Access 00:00:00 00:00:00 MIRTA e2-5je4-76i 373-4fb8-8 Health 0-gu6lec667 9z3-xg3178 0f4 3b9fb0 2016-04-17 2016-04-17 Outpatient [facility] [id number] Access 00:00:00 00:00:00 H, PROVIDER Will garcia 2016-04-17 2016-04-17 Outpatient [facility] 9nm1z1k0-2n 2m608q5p-j Access 00:00:00 00:00:00 H, PROVIDER april8ug6-54t 7cd-42 99-a Health 0-cw4znx433 w90-y8c2j5 0f4 685c34 2016-04-07 2016-04-07 Outpatient [facility] 107 [id number] Access 00:00:00 00:00:00 H, PROVIDER Will garcia 2016-04-07 2016-04-07 Outpatient [facility] 1ei4n7f8-1g 33k7ifj2-t Access 00:00:00 00:00:00 H, PROVIDER e2-0yn6-87h f6e-4e 34-8 Health 0-oy6trk724 026-e65fd2 0f4 3f7d68 2016-04-07 2016-04-07 Outpatient TIMA, [facility] mqx412kd-1e 561 b9q20-p Access 00:00:00 00:00:00 OSMAN 22-4926-a4f x9v-7wd5-d Health f-69346981m 89b-711bf4 alexander mm639q 2016-04-07 2016-04-07 Outpatient TIMA, [facility] 1wx7i3s5-0m 515 ffab0-4 Access 00:00:00 00:00:00 OSMAN pierre-3sz2-60u 605-4ff2-a Health 0-nh6crv063 18f-25l165 0f4 130b3b 2016-04-07 2016-04-07 Outpatient [facility], [facility] 8 5579j58-h Access 00:00:00 00:00:00 MIRTA 22-4926-a4f 57e-49df-a Health f-69535297p 23e-006f72 alexander 8m253n 2016-04-06 2016-04-06 Outpatient [facility] 107 [id number] Access 00:00:00 00:00:00 H, PROVIDER Will garcia 2016-04-06 2016-04-06 Outpatient [facility] 4es5h3p7-3u 5880d313-l Access 00:00:00 00:00:00 H, PROVIDER e2-8el8-97u 933-4f 57-9 Health 0-nv6asb077 cdf-f04f62 0f4 53e701 2016-04-06 2016-04-06 Outpatient TIMA, [facility] 2uf8w6o8-2k c72 c22c6-9 Access 00:00:00 00:00:00 OSMAN pierre-0uh2-15e k2v-2a63-e Health 0-tn4zrj883 q95-53504u 0f4 ad40b7 2016-04-06 2016-04-06 Outpatient CONTRERAS, [facility] 3wc6z2z0-7z 3 lw039j1-b Access 00:00:00 00:00:00 MIRTA e2-4qf6-22p eb2-4dd6-b Health 0-mn8ora965 9fd-dc32d8 0f4 02g977 2016-03-26 2016-03-26 Outpatient [facility] 107 [id number] Access 00:00:00 00:00:00 H, PROVIDER Will garcia 2016-03-26 2016-03-26 Outpatient [facility] 8cp1o3a9-7k 0c27g6d4-m Access 00:00:00 00:00:00 H, PROVIDER e2-6yr8-61k f3d-41 a6-a Health 0-zr1lqb102 ba9-6872c4 0f4 920521 1022-12-29 2016-03-26 Outpatient OMORI, [facility] uer927xd-6m 8bc 3quu1-4 Access 00:00:00 00:00:00 NAIF 22-4926-a4f 598-4848- a Health f-13003735m 098-293a08 alexander vy519w 2016-03-26 2016-03-26 Outpatient DIANE, [facility] cao538cl-0j 1 uz21u2x-2 Access 00:00:00 00:00:00 MIRTA 22-4926-a4f 6ee-4ff7-b Health f-01345958i 583-72eac5 alexander 326a7e 2016-03-26 2016-03-26 Outpatient IRIZARRY, [facility] lal342fs-0k 576 8u4wt-7 Access 00:00:00 00:00:00 KATELINE 22-4926-a4f 7r5-6t32- 8 Health f-88131488r 9cc-1x9085 alexander 0b4fc0 2016-03-25 2016-03-25 Outpatient [facility] [id number] Access 00:00:00 00:00:00 H, PROVIDER Will garcia 2016-03-25 2016-03-25 Outpatient [facility] 3ux1h5o1-7h 82r66r37-z Access 00:00:00 00:00:00 H, PROVIDER gabby-6zj9-83x dd6-45 84-8 Health 0-nb0zjs037 4y3-t02svq 0f4 aj421f 2016-03-25 2016-03-25 Outpatient TIMA, [facility] wbt432qk-5e 560 91v27-6 Access 00:00:00 00:00:00 OSMAN 22-4926-a4f 065-44df-b Health f-38401426b 819-2699d1 alexander 8f5a2f 2016-03-25 2016-03-25 Outpatient CONTRERAS, [facility] eil875ft-0p 9 83pq3h0-e Access 00:00:00 00:00:00 MIRTA 22-4926-a4f n40-0x2u-0 Health f-27420335w 48f-8ad8b4 alexander b50eed 2016-03-06 2016-03-06 Outpatient [facility] 107 [id number] Access 00:00:00 00:00:00 H, PROVIDER Will garcia 2016-03-06 2016-03-06 Outpatient [facility] 7ed9n9x5-1y 0g7p61e1-3 Access 00:00:00 00:00:00 H, PROVIDER e2-4kx1-00o f9e-49 00-9 Health 0-qi8efh168 84c-1e2721 0f4 00b571 2016-03-06 2016-03-06 Outpatient DELAROSA, [facility] yub604ve-1w da 80fadd-2 Access 00:00:00 00:00:00 CHRISTINA 22-4926-a4f 8k0-5c3v- a Health f-21647011q p23-991z06 alexander 4c9b58 2016-03-06 2016-03-06 Outpatient CONTRERAS, [facility] sdp254ty-8z 3 0m0wgra-j Access 00:00:00 00:00:00 MIRTA 22-4926-a4f 95d-4894-8 Health f-96650695s 41e-08a2d9 alexander 2085f3 2016-03-03 2016-03-03 Outpatient TIMA, [facility] wcx262mo-0p 11d f8659-6 Access 00:00:00 00:00:00 OSMAN Estrella-4926-a4f 1fb-4f0a-a Health f-48427265o 780-75t930 alexander 2abc72 2016-02-28 2016-02-28 Outpatient [facility] [id number] Access 00:00:00 00:00:00 H, PROVIDER Will garcia 2016-02-28 2016-02-28 Outpatient [facility] 8do4a0j1-8a a26ul2m7-1 Access 00:00:00 00:00:00 H, PROVIDER e2-1ot3-12f 122-40 d1-a Health 0-jr0fcw480 cd8-8e0dd4 0f4 c9ee35 2016-02-28 2016-02-28 Outpatient CONTRERAS, [facility] yfw020ov-3z 3 782hx3p-5 Access 00:00:00 00:00:00 MIRTA Estrella-4926-a4f af1-4c49-8 Health f-28445173l 251-7271d4 alexander 5a4e2f 2016-02-28 2016-02-28 Outpatient TIMA, [facility] hza266ca-0i 30e 8kcl1-9 Access 00:00:00 00:00:00 OSMAN Estrella-4926-a4f ca3-4e7f-9 Health f-64423478a 7n8-q010m2 alexander 5fb9b9 2016-02-25 2016-02-25 Outpatient DESTINY, [facility] 5vu4v6n5-3y 882 n9hy3-t Access 00:00:00 00:00:00 MELVA e2-1dc9-14h 1o5-3hz6-8 Health 0-xc1mhr513 398-o49274 0f4 be84b6 2016-02-24 2016-02-24 Outpatient DESTINY, [facility] 7yu4k2d7-2h 970 6112d-8 Access 00:00:00 00:00:00 MELVA e2-1hu9-80l 522-4d0a-8 Health 0-lp8gvg610 3ed-40eaf8 0f4 0f12d2 2016-02-18 2016-02-18 Outpatient [facility] 107 [id number] Access 00:00:00 00:00:00 H, PROVIDER Will garcia 2016-02-18 2016-02-18 Outpatient [facility] 1ad4p3n5-5t d7pk70rt-2 Access 00:00:00 00:00:00 H, PROVIDER e2-9ma9-85r 82f-43 1a-b Health 0-jo0ncs534 y8f-21734v 0f4 5abef2 2016-02-18 2016-02-18 Outpatient DESTINY, [facility] 5sa1u7v1-0v 2fa 50b97-4 Access 00:00:00 00:00:00 MELVA e2-4ng8-59f p6f-6f8r-g Health 0-iq9rgs636 279-b1d14b 0f4 e2f42d 2016-02-18 2016-02-18 Outpatient DIANE, [facility] 2kd5j7v3-6y 8 9v69d60-7 Access 00:00:00 00:00:00 MIRTA e2-7gt8-41a 2c3-0829-r Health 0-jh2xgh263 alexander-e606c4 0f4 149c44 2016-02-10 2016-02-10 Outpatient TIMA, [facility] 0fc1d0z6-2a 0be 1jsv9-o Access 00:00:00 00:00:00 OSMAN e2-6lq7-29g 0eb-4eb1-a Health 0-iv1ekq214 54f-801604 0f4 64ba33 2016-02-06 2016-02-06 Outpatient ETIENNE, [facility] [id number] [address] [place] [address] 10:32:12 15:36:05 NAIMA alvarez of Medicin e 2016-01-30 2016-01-30 Outpatient TIMA, [facility] iza818ed-8i 003 16d90-7 Access 00:00:00 00:00:00 OSMAN 22-4926-a4f m33-1i95-n Health f-92705009y 30e-776d1f alexander b29d1e 2016-01-28 2016-01-28 Outpatient [facility] [id number] Access 00:00:00 00:00:00 H, PROVIDER Will garcia 2016-01-28 2016-01-28 Outpatient [facility] 5gq8j6e8-0w 41q62p79-0 Access 00:00:00 00:00:00 H, PROVIDER e2-6nq5-99h d0d-4c 90-b Health 0-ma6yja771 cac-4hg197 0f4 21fba1 2016-01-28 2016-01-28 Outpatient DESTINY, [facility] 6yb0x0f8-1r 2ec v78tv-2 Access 00:00:00 00:00:00 MELVA e2-1co3-78q h91-9bu7-3 Health 0-jf8kcc084 4k0-f121tm 0f4 5909cc 2016-01-28 2016-01-28 Outpatient TIMA, [facility] 4em8p2k1-5n af0 1d3k8-p Access 00:00:00 00:00:00 OSMAN e2-3ar7-21m 855-4c09-9 Health 0-wq0vys102 1z6-cf4t88 0f4 dd65fd 2016-01-28 2016-01-28 Outpatient DIANE, [facility] 8ga4b2p5-9w 2 tu78791-8 Access 00:00:00 00:00:00 MIRTA e2-7eq4-89k 6v8-3n39-1 Health 0-zv3yau180 r50-u04v71 0f4 226cf1 2016-01-27 2016-01-27 Outpatient [facility] [id number] Access 00:00:00 00:00:00 H, PROVIDER Will garcia 2016-01-27 2016-01-27 Outpatient [facility] 4sw1s1b4-4j 815d3lu0-0 Access 00:00:00 00:00:00 H, PROVIDER e2-2nh2-82v 6ce-4b 28-b Health 0-yn4bml852 7h4-99u694 0f4 311f8d 2016-01-27 2016-01-27 Outpatient TIMA, [facility] roj939zw-3m 169 c2b66-m Access 00:00:00 00:00:00 OSMAN 22-4926-a4f i81-61ae-x Health f-65637984i 6ce-180708 alexander 311d01 2016-01-21 2016-01-21 Outpatient [facility] [id number] Access 00:00:00 00:00:00 H, PROVIDER Will garcia 2016-01-21 2016-01-21 Outpatient [facility] 5nu9j0l2-1r [id number] Access 00:00:00 00:00:00 H, PROVIDER april3hu8-21v be4-45 98-a Health 0-ha1fur150 79f-33e35e 0f4 b6a3ba 2016-01-21 2016-01-21 Outpatient JONAS, [facility] vbs432jh-2y b0 sav879-c Access 00:00:00 00:00:00 MAEVE SameerRy4926-a4f 971-46ae-b Health f-89900993s 5db-ceb82a alexander 06ca45 2016-01-21 2016-01-21 Outpatient OMORI, [facility] gve413we-9r c83 l93m1-t Access 00:00:00 00:00:00 NAIF Sameer-4926-a4f 6b1-1p6n- b Health f-05552135x 44d-88f26d alexander e2f123 2015-10-02 2015-10-02 Outpatient OMORI, [facility] qcm851ec-5t c00 513aa-5 Access 00:00:00 00:00:00 NAIF Sameer-4926-a4f 809-4330- b Health f-59523696r 6a2-dga563 alexander 9ebe0b 2015-10-01 2015-10-01 Outpatient [facility] [id number] Access 00:00:00 00:00:00 H, PROVIDER Will garcia 2015-10-01 2015-10-01 Outpatient [facility] 0bx9m5u4-8b 57f13299-9 Access 00:00:00 00:00:00 H, PROVIDER april6co2-66d ed0-46 e6-9 Health 0-pl0htl549 57e-4efa05 0f4 diz371 2015-10-01 2015-10-01 Outpatient OMORI, [facility] kwe364xt-7i 83d fe5t2-q Access 00:00:00 00:00:00 NAIF Estrella-4926-a4f 7c0-01x4- 9 Health f-79083670r r71-hw1772 alexander xo981j 2015-10-01 2015-10-01 Outpatient DIANE, [facility] uci060ag-6i 4 zzqo79o-0 Access 00:00:00 00:00:00 MIRTA Estrella-4926-a4f 6i0-0xx9-v Health f-53939263h t74-1x60n2 alexander c704de 2015-09-26 2015-09-26 Outpatient [facility] [id number] Access 00:00:00 00:00:00 H, PROVIDER Will garcia 2015-09-26 2015-09-26 Outpatient [facility] 8cu5o3o1-7n [id number] Access 00:00:00 00:00:00 H, PROVIDER april7wl5-44i 8ad-4b 20-9 Health 0-ej1cmn659 9g9-x95w5n 0f4 1f3c6d 2015-09-26 2015-09-26 Outpatient DIANE, [facility] fuo685af-3g 6 3n2j8av-1 Access 00:00:00 00:00:00 MIRTA Estrella-4926-a4f 121-4c1d-b Health f-63330297v y2o-5c0s84 alexander 61j024 2015-09-26 2015-09-26 Outpatient JOSE FRANCISCO, [facility] mok995qh-6a b24 6u059-0 Access 00:00:00 00:00:00 NAIF Estrella-4926-a4f 457-48de- a Health f-80869668v e78-r41g7c alexander 6o436f 2015-09-12 2015-09-12 Outpatient [facility] 107 [id number] Access 00:00:00 00:00:00 H, PROVIDER Will garcia 2015-09-12 2015-09-12 Outpatient [facility] 1dg9j6o2-5p g8988p0w-5 Access 00:00:00 00:00:00 H, PROVIDER april3xp7-53l 126-41 a3-b Health 0-re4cfo500 625-097068 0f4 48d9d2 2015-08-21 2015-08-21 Outpatient [facility] 107 [id number] Access 00:00:00 00:00:00 H, PROVIDER Will garcia 2015-08-21 2015-08-21 Outpatient [facility] 4mn6q3q2-3e 94l7347z-q Access 00:00:00 00:00:00 H, PROVIDER april7oz7-21e f2e-44 8f-b Health 0-gn8jar586 h9x-11250x 0f4 e6de39 2015-05-22 2015-05-22 Outpatient [facility] 107 [id number] Access 00:00:00 00:00:00 H, PROVIDER Will garcia 2015-05-22 2015-05-22 Outpatient [facility] 4wr8e5c0-1l [id number] Access 00:00:00 00:00:00 H, PROVIDER april0yw2-07u 2c0-43 14-b Health 0-jg3ojt706 73a-z59554 0f4 1acb06 2015-05-21 2015-05-21 Outpatient [facility] 107 [id number] Access 00:00:00 00:00:00 H, PROVIDER Will garcia 2015-05-21 2015-05-21 Outpatient [facility] 9dt8i5d8-4s 59x50j86-9 Access 00:00:00 00:00:00 H, PROVIDER april7yb3-71m 9f9-45 a3-8 Health 0-jq9pal488 5bd-493e87 0f4 42n773 2015-05-03 2015-05-03 Outpatient HERNAE, [facility] 6jf8c8p1-4c 56 07290y-3 Access 15:36:00 15:36:00 MAEVE april2tb1-90u e8l-5aj9-h Health 0-zn9zqh309 1r4-237vy2 0f4 294296 6716-02-05 2015-05-03 Outpatient [facility] 107 [id number] Access 00:00:00 00:00:00 H, PROVIDER Will garcia 2015-05-03 2015-05-03 Outpatient [facility] 8iy6v8i0-2t [id number]-6 Access 00:00:00 00:00:00 H, PROVIDER april4hg4-89h da3-40 14-8 Health 0-ve4aoi331 af9-8y3367 0f4 f3f5e9 2015-05-03 2015-05-03 Outpatient DIANE, [facility] 8vz0q6z7-7i 3 2hd953r-0 Access 00:00:00 00:00:00 MIRTA gabby-9ve8-22u h90-52c0-7 Health 0-rp2yrt448 s0n-5vj15y 0f4 e671aa 2015-03-20 2015-03-20 Outpatient [facility] 107 [id number] Access 00:00:00 00:00:00 H, PROVIDER Will garcia 2015-03-20 2015-03-20 Outpatient [facility] 4wc2l7l5-4x akxc4630-7 Access 00:00:00 00:00:00 H, PROVIDER valerie8my5-34p rafa0-41 96-8 Health 0-xd4nid832 65e-54ee37 0f4 28g978 2015-03-15 2015-03-15 Outpatient [facility] 107 [id number] Access 00:00:00 00:00:00 H, PROVIDER Will garcia 2015-03-15 2015-03-15 Outpatient [facility] 6gv2f0l6-3u r697j414-2 Access 00:00:00 00:00:00 H, PROVIDER valerie6cy1-19b 7a2-4a a9-b Health 0-uy7nbj471 5v8-8m656j 0f4 4d45ed 2015-03-06 2015-03-06 Outpatient [facility] 107 [id number] Access 00:00:00 00:00:00 H, PROVIDER Will garcia 2015-03-06 2015-03-06 Outpatient [facility] 8vh2m7d8-7a [id number] Access 00:00:00 00:00:00 H, PROVIDER april5xl5-43c fdb-4d 58-a Health 0-kd6qex990 m3p-76gr66 0f4 e55592 2015-02-19 2015-02-19 Outpatient [facility] 107 [id number] Access 00:00:00 00:00:00 H, PROVIDER Will garcia 2015-02-19 2015-02-19 Outpatient [facility] 1lk9g5m3-0z c77143uc-r Access 00:00:00 00:00:00 H, PROVIDER tatyana0ze8-37w 127-4b 58-a Health 0-px3gfb760 5a3-q27ox6 0f4 e12e02 2015-02-18 2015-02-18 Outpatient [facility] 107 [id number] Access 00:00:00 00:00:00 H, PROVIDER Will garcia 2015-02-18 2015-02-18 Outpatient [facility] 8dz9z9o4-2w [id number] Access 00:00:00 00:00:00 H, PROVIDER valerie1cn3-53o d47-48 5c-8 Health 0-xz2gvn553 5cb-5cface 0f4 c58e5d 2015-02-12 2015-02-12 Outpatient [facility] 107 [id number] Access 00:00:00 00:00:00 H, PROVIDER Will garcia 2015-02-12 2015-02-12 Outpatient [facility] 2yu0v5b7-0q s8819i25-[id number] Access 00:00:00 00:00:00 H, PROVIDER valerie0xi5-98w 279-4f 28-b Health 0-vf3cbp403 ed6-28f39e 0f4 5fa5a5 2015-02-11 2015-02-11 Outpatient [facility] 107 [id number] Access 00:00:00 00:00:00 H, PROVIDER Will garcia 2015-02-11 2015-02-11 Outpatient [facility] 5ge6e7d9-6b 6k77sx71-p Access 00:00:00 00:00:00 H, PROVIDER valerie3sp9-20h 925-41 78-b Health 0-zu7vde369 3v4-9s4910 0f4 559f90 2015-02-06 2015-02-06 Outpatient [facility] 107 [id number] Access 00:00:00 00:00:00 H, PROVIDER Will garcia 2015-02-06 2015-02-06 Outpatient [facility] [id number] Access 00:00:00 00:00:00 H, PROVIDER [id number] [id number] 15-a Health [id number] 0f4 [id number] 2015-01-24 2015-01-24 [facility] [id number] Access 00:00:00 00:00:00 H, PROVIDER Will garcia 2015-01-24 2015-01-24 [facility] [id number] Access 00:00:00 00:00:00 H, PROVIDER [id number] f80-44 d8-a Health [id number] 0f4 [id number] 2015-01-08 2015-01-08 [facility] [id number] Access 00:00:00 00:00:00 H, PROVIDER Will garcia 2015-01-08 2015-01-08 [facility] [id number] Access 00:00:00 00:00:00 H, PROVIDER [id number] 64f-4c a3-9 Health [id number] 0f4 [id number] 2015-01-01 2015-01-01 [facility] [id number] Access 00:00:00 00:00:00 H, PROVIDER Will garcia 2015-01-01 2015-01-01 [facility] [id number] Access 00:00:00 00:00:00 H, PROVIDER [id number] 53f-43 97-b Health [id number] 0f4 [id number] 2014-12-27 2014-12-27 [facility] [id number] Access 00:00:00 00:00:00 H, PROVIDER Will garcia 2014-12-27 2014-12-27 [facility] [id number] Access 00:00:00 00:00:00 H, PROVIDER [id number] ca7-44 22-9 Health [id number] 0f4 [id number] 2014-12-07 2014-12-07 [facility] [id number] Access 00:00:00 00:00:00 H, PROVIDER Will garcia 2014-12-07 2014-12-07 [facility] [id number] Access 00:00:00 00:00:00 H, PROVIDER [id number] c82-4a dd-a Health 0-[id number] [id number] 0f4 [id number] 2014-05-08 2014-05-08 [facility] [id number] Access 00:00:00 00:00:00 H, PROVIDER Will garcia 2014-05-08 2014-05-08 [facility] [id number] Access 00:00:00 00:00:00 H, PROVIDER [id number] e34-45 36-8 Health [id number] 0f4 [id number] 2014-04-26 2014-04-26 [facility] [id number] Access 00:00:00 00:00:00 H, PROVIDER Will garcia 2014-04-26 2014-04-26 [facility] [id number] Access 00:00:00 00:00:00 H, PROVIDER valerie7lp7-15e ed4-4c e6-b Health [id number] 0f4 [id number] 2014-04-25 2014-04-25 [facility] [id number] Access 00:00:00 00:00:00 H, PROVIDER Will garcia 2014-04-25 2014-04-25 [facility] [id number] Access 00:00:00 00:00:00 H, PROVIDER valerie5xu2-09l 477-46 7f-9 [facility] [id number] 0f4 [id number] 2014-04-09 2014-04-09 [id number] Access 00:00:00 00:00:00 H, PROVIDER Will agrcia 2014-04-09 2014-04-09 [facility] [id number] Access 00:00:00 00:00:00 H, PROVIDER [id number] 783-44 d2-9 [place] [id number] 0f4 [id number] 2014-03-12 2014-03-12 [facility] [id number] Access 00:00:00 00:00:00 H, PROVIDER Will garcia 2014-03-12 2014-03-12 [facility] [id number] Access 00:00:00 00:00:00 H, PROVIDER e2-1zv2-29c d5c-45 e4-8 [place] [id number] 0f4 [id number] Results Test Description Test Time Test Comments Results Result Comments Source Panel Description: Albumin/Creatinine Ratio,Urine 2021-01-30 17:11:00 Test Item Value Reference Range Interpretation Comme nts Creatinine, Urine (test code 54.5 mg/dL Not Estab. = 2161-8) Albumin, Urine (test code = 2814.8 ug/mL Not Estab. Results confirmed 06008-7) ondilution.<br/ >
[facility]form ed by:
[facility]

Alb/Creat Ratio (test code = 5165 mg/gcreat 0-29 H 9318-7) Normal : 0 - 29 Moderately incr eased: 30 - 300 Sev erely increased: >300

Performed by:
[facility] ([place])

[facility] Description: Albumin/Creatinine Ratio,[id number] 17:11:00 Test Item Value Reference Range Interpretation Comments Creatinine, Urine 54.5 mg/dL Not Estab. (test code = 2161-8) Albumin, Urine 2814.8 ug/mL Not Estab. Results confi rmed (test code = ondilution.<br/ >
P 00596-3) erformed by:
[facility] ([place])

Alb/Creat Ratio 5165 mg/gcreat 0-29 H (test code = Normal: 9318-7) 0 - 29 Moderately incr eased: 30 - 300 Severely increa sed: >300

Perfo rmed by:
[facility] [place] ([place])

[facility] Description: Albumin/Creatinine Ratio,[id number] 17:11:00 Test Item Value Reference Range Interpretation Comments Creatinine, Urine 54.5 mg/dL Not Estab. (test code = 2161-8) Albumin, Urine 2814.8 ug/mL Not Estab. Results confi rmed (test code = ondilution.<br/ >
P 96475-1) erformed by:
[facility] ([place])

Alb/Creat Ratio 5165 mg/gcreat 0-29 H (test code = Normal: 9318-7) 0 - 29 Moderately incr eased: 30 - 300 Severely increa sed: >300

Perfo rmed by:
[facility]

[facility] Description: Natriuretic peptide B [Mass/volume] in Serum or [id number] 13:36:00 Test Item Value Reference Range Interpretation Comments B-Type Natriuretic Peptide (test 396.8 pg/mL 0.0-100.0 H code = 43304-3) [facility] Description: Natriuretic peptide B [Mass/volume] in Serum or [id number] 13:36:00 Test Item Value Reference Range Interpretation Comments B-Type Natriuretic Peptide (test 396.8 pg/mL 0.0-100.0 H code = 64396-4) [facility] Description: Natriuretic peptide B [Mass/volume] in Serum or [id number] 13:36:00 Test Item Value Reference Range Interpretation Comments B-Type Natriuretic Peptide (test 396.8 pg/mL 0.0-100.0 H code = 94113-4) [facility] Description: Hemoglobin A1c/Hemoglobin.total in Blood 2021-01-30 12:27:00 Test Item Value Reference Range Interpretation Comments Hemoglobin A1c (test code 8.7 % 4.8-5.6 H = 4548-4) . Prediabetes: 5. 7 - 6.4 Diabetes : >6.4 Glycemic control for adults with diabetes: <7.0

P erformed by:
[facility] ([place])

[facility] Description: Hemoglobin A1c/Hemoglobin.total in Blood 2021-01-30 12:27:00 Test Item Value Reference Range Interpretation Comments Hemoglobin A1c (test code 8.7 % 4.8-5.6 H = 4548-4) . Prediabetes: 5. 7 - 6.4 Diabetes : >6.4 Glycemic control for adults with diabetes: <7.0

P erformed by:
[employer] ([place])

[facility] Description: Hemoglobin A1c/Hemoglobin.total in Blood 2021-01-30 12:27:00 Test Item Value Reference Range Interpretation Comments Hemoglobin A1c (test code 8.7 % 4.8-5.6 H = 4548-4) . Prediabetes: 5. 7 - 6.4 Diabetes : >6.4 Glycemic control for adults with diabetes: <7.0

P erformed by:
[facility] [employer] ([place])

[facility] Description: C reactive protein [Mass/volume] in Serum or [id number] 04:53:00 Test Item Value Reference Range Interpretation Comments C-Reactive Protein, Quant (test code 13 mg/L 0-10 H = 1987-) [facility] Description: C reactive protein [Mass/volume] in Serum or [id number] 04:53:00 Test Item Value Reference Range Interpretation Comments C-Reactive Protein, Quant (test code 13 mg/L 0-10 H = 1987-07) [facility] Description: C reactive protein [Mass/volume] in Serum or [id number] 04:53:00 Test Item Value Reference Range Interpretation Comments C-Reactive Protein, Quant (test code 13 mg/L 0-10 H = 1987-07) [facility] Description: 25-hydroxyvitamin D3 [Mass/volume] in Serum or [id number] 03:48:00 Test Item Value Reference Range Interpretation Comments Vitamin D, 17.6 ng/mL 30.0-100.0 L Vitamin D defic iency has 25-Hydroxy (test been define d by the code = 69750-0) [place] [employer] and an Endocrine So [facility] guidel ine as alevel of serum 25-OH vitamin D less than 20 ng/mL (1,2).The Endocrine Society went on to further define vitamin Dinsufficiency as a level between 21 and 29 ng/mL (2).1. IOM (Ins titute of Medicine). 2010 . Dietary reference int akes for calcium and D. [place]: [employer] .2. Dileep MF, Ela NC, Stephane blake EMERSON, et al. Evaluatio n, treatment, and prevention of vitamin D deficiency: an Endocrine Society clinica l practice guideline. [place]. 2010; 96(7):1911-30.< br/>
P erformed by:
[facility] ()

[facility] Description: 25-hydroxyvitamin D3 [Mass/volume] in Serum or [id number] 03:48:00 Test Item Value Reference Range Interpretation Comments Vitamin D, 17.6 ng/mL 30.0-100.0 L Vitamin D defic iency has 25-Hydroxy (test been define d by the code = 32972-8) [place] [employer] and an Endocrine [facility] guidel ine as alevel of serum 25-OH vitamin D less than 20 ng/mL (1,2).The Endocrine Society went on to further define vitamin Dinsufficiency as a level between 21 and 29 ng/mL (2).1. IOM (Ins titute of Medicine). 2010 . Dietary reference int akes for calcium and D. [facility]: [employer] .2. Dileep AREVALO, Ela SANTA, Stephane EMERSON, et al. Evaluatio n, treatment, and prevention of vitamin D deficiency: an Endocrine Society clinica l practice guideline. [facility]. 2010; 96(7):1911-30.< br/>
P erformed by:
[facility] ([place])

[facility] Description: 25-hydroxyvitamin D3 [Mass/volume] in Serum or [id number] 03:48:00 Test Item Value Reference Range Interpretation Comments Vitamin D, 17.6 ng/mL 30.0-100.0 L Vitamin D defic iency has 25-Hydroxy (test been define d by the code = 27981-7) [place] [employer] and an Endocrine So ety practice guidel ine as alevel of serum 25-OH vitamin D less than 20 ng/mL (1,2).The Endocrine Society went on to further define vitamin Dinsufficiency as a level between 21 and 29 ng/mL (2).1. IOM (Ins titute of Medicine). 2010 . Dietary reference int akes for calcium and D. [facility]: [employer] .2. Ela Oliveros, Stephane EMERSON, et al. Evaluatio n, treatment, and prevention of vitamin D deficiency: an Endocrine Society clinica l practice guideline. [facility]. 2010; 96(7):1911-30.< br/>
P erformed by:
[facility] ([place])

[facility] Description: Erythrocyte sedimentation rate by Westergren [id number] 03:06:00 Test Item Value Reference Range Interpretation Comments Sedimentation Rate-Westergren (test 27 mm/hr 0-15 H code = 4537-7) [facility] Description: Erythrocyte sedimentation rate by Westergren [id number] 03:06:00 Test Item Value Reference Range Interpretation Comments Sedimentation Rate-Westergren (test 27 mm/hr 0-15 H code = 4537-7) [facility] Description: Erythrocyte sedimentation rate by Westergren [id number] 03:06:00 Test Item Value Reference Range Interpretation Comments Sedimentation Rate-Westergren (test 27 mm/hr 0-15 H code = 4537-7) [facility] Description: Comp. Metabolic Panel (14)2021-01-30 02:57:00 Test Item Value Reference Range Interpretation Comments Glucose (test code 256 mg/dL 65-99 H = 2345-7) BUN (test code = 57 mg/dL 6-24 H 3094-0) Creatinine (test 2.38 mg/dL 0.76-1.27 H code = 2160-0) eGFR If NonAfricn 31 >59 L Am (test code = mL/min/1.73 42850-3) eGFR If Africn Am 36 >59 L In accor dance with (test code = mL/min/1.73 recommendations from 54422-1) the NKF-ASN Tas k force, [facility] is in the process of updating its eG FR calculation to the 2020 CKD-EPI creatinine equa tion that estimates kidney function witho ut a race variable.
< br/>Per formed by:
[facility] ([place])

BUN/Creatinine 24 9-20 H Ratio (test code = 3097-3) Sodium (test code = 139 mmol/L 720-284 3066-2) Potassium (test 4.9 mmol/L 3.5-5.2 code = 2823-3) Chloride (test code 100 mmol/L 96-106 = 2075-0) Carbon Dioxide, 23 mmol/L 20-29 Total (test code = 2027-9) Calcium (test code 9.0 mg/dL 8.7-10.2 = 57517-0) Protein, Total 6.5 g/dL 6.0-8.5 (test code = 2885-2) Albumin (test code 3.4 g/dL 4.0-5.0 L = 1751-7) Globulin, Total 3.1 g/dL 1.5-4.5 (test code = 78936-1) A/G Ratio (test 1.1 1.2-2.2 L code = 1759-0) Bilirubin, Total 0.4 mg/dL 0.0-1.2 (test code = 1975-2) Alkaline 124 IU/L 44-121 H Phosphatase (test Pl ease note code = 6768-6) reference int erval change
<b r/>Perf ormed by:
[facility] ([place])

AST (SGOT) (test 17 IU/L 0-40 code = 1920-8) ALT (SGPT) (test 23 IU/L 0-44 code = 1742-6) [facility] Description: Phosphate [Mass/volume] in Serum or Plasma 2021-01-30 02:57:00 Test Item Value Reference Range Interpretation Comments Phosphorus (test code = 2777-1) 4.5 mg/dL 2.8-4.[address] [facility]: Magnesium [Mass/volume] in Serum or Plasma 2021-01-30 02:57:00 Test Item Value Reference Range Interpretation Comments Magnesium (test code = 43306-3) 1.8 mg/dL 1.6-2.3 [facility] Description: Microscopic [id number] 02:57:00 Test Item Value Reference Range Interpretation Comments WBC (test code = 5821-4) None seen 0-5 RBC (test code = 61977-2) None seen 0-2 Epithelial Cells (non renal) (test None seen 0-10 code = 5787-7) Epithelial Cells (renal) (test code = 99403-7) Casts (test code = 92754-8) None seen None seen Cast Type (test code = 89286-4) Crystals (test code = 5783-6) Crystal Type (test code = 5782-8) Mucus Threads (test code = 8247-9) Bacteria (test code = 5769-5) None seen None seen/Few Yeast (test code = 5822-2) Trichomonas (test code = 5813-1) Comment (test code = 52206-1) [facility] Description: Urate [Mass/volume] in Serum or [id number] 02:57:00 Test Item Value Reference Range Interpretation Comments Uric Acid (test 11.5 mg/dL 3.8-8.4 H code = 3084-1) Therapeutic t arget for gout patients: <6.0

P erformed by:
[facility] ([place])

[facility] Description: Comp. Metabolic Panel (14)2021-01-30 02:57:00 Test Item Value Reference Range Interpretation Comments Glucose (test code 256 mg/dL 65-99 H = 2345-7) BUN (test code = 57 mg/dL 6-24 H 3094-0) Creatinine (test 2.38 mg/dL 0.76-1.27 H code = 2160-0) eGFR If NonAfricn 31 >59 L Am (test code = mL/min/1.73 94602-7) eGFR If Africn Am 36 >59 L In accor dance with (test code = mL/min/1.73 recommendations from 25814-0) the NKF-ASN Tas k force, [facility] is in the process of updating its eG FR calculation to the 2020 CKD-EPI creatinine equa tion that estimates kidney function witho ut a race variable.
< br/>Per formed by:
[facility] ([place])

BUN/Creatinine 24 9-20 H Ratio (test code = 3097-3) Sodium (test code = 139 mmol/L 043-804 5328-2) Potassium (test 4.9 mmol/L 3.5-5.2 code = 2823-3) Chloride (test code 100 mmol/L 96-106 = 2075-0) Carbon Dioxide, 23 mmol/L 20-29 Total (test code = 2027-) Calcium (test code 9.0 mg/dL 8.7-10.2 = 37962-8) Protein, Total 6.5 g/dL 6.0-8.5 (test code = 2885-2) Albumin (test code 3.4 g/dL 4.0-5.0 L = 1751-7) Globulin, Total 3.1 g/dL 1.5-4.5 (test code = 50326-9) A/G Ratio (test 1.1 1.2-2.2 L code = 1759-0) Bilirubin, Total 0.4 mg/dL 0.0-1.2 (test code = 1975-2) Alkaline 124 IU/L 44-121 H Phosphatase (test Pl ease note code = 6768-6) reference int erval change
<b r/>Perf ormed by:
[facility] ([place])

AST (SGOT) (test 17 IU/L 0-40 code = 1920-8) ALT (SGPT) (test 23 IU/L 0-44 code = 1742-6) [facility]: Phosphate [Mass/volume] in Serum or Plasma 2021-01-30 02:57:00 Test Item Value Reference Range Interpretation Comments Phosphorus (test code = 2777-1) 4.5 mg/dL 2.8-4.[address] [facility]: Magnesium [Mass/volume] in Serum or Plasma 2021-01-30 02:57:00 Test Item Value Reference Range Interpretation Comments Magnesium (test code = 32377-3) 1.8 mg/dL 1.6-2.3 [facility] Description: Microscopic [id number] 02:57:00 Test Item Value Reference Range Interpretation Comments WBC (test code = 5821-4) None seen 0-5 RBC (test code = 47322-9) None seen 0-2 Epithelial Cells (non renal) (test None seen 0-10 code = 5787-7) Epithelial Cells (renal) (test code = 06176-8) Casts (test code = 25503-5) None seen None seen Cast Type (test code = 50989-9) Crystals (test code = 5783-6) Crystal Type (test code = 5782-8) Mucus Threads (test code = 8247-9) Bacteria (test code = 5769-5) None seen None seen/Few Yeast (test code = 5822-2) Trichomonas (test code = 5813-1) Comment (test code = 81063-1) [facility] Description: Urate [Mass/volume] in Serum or [id number] 02:57:00 Test Item Value Reference Range Interpretation Comments Uric Acid (test 11.5 mg/dL 3.8-8.4 H code = 3084-1) Therapeutic t arget for gout patients: <6.0

P erformed by:
[facility] ([place])

[facility] Description: Comp. Metabolic Panel (14)2021-01-30 02:57:00 Test Item Value Reference Range Interpretation Comments Glucose (test code 256 mg/dL 65-99 H = 2345-7) BUN (test code = 57 mg/dL 6-24 H 3094-0) Creatinine (test 2.38 mg/dL 0.76-1.27 H code = 2160-0) eGFR If NonAfricn 31 >59 L Am (test code = mL/min/1.73 79017-0) eGFR If Africn Am 36 >59 L In accor dance with (test code = mL/min/1.73 recommendations from 35843-7) the NKF-ASN Tas k force, [facility] is in the process of updating its eG FR calculation to the 2020 CKD-EPI creatinine equa tion that estimates kidney function witho ut a race variable.
< br/>Per formed by:
[facility] ([place])

BUN/Creatinine 24 9-20 H Ratio (test code = 3097-3) Sodium (test code = 139 mmol/L 345-747 2425-2) Potassium (test 4.9 mmol/L 3.5-5.2 code = 2823-3) Chloride (test code 100 mmol/L 96-106 = 2075-0) Carbon Dioxide, 23 mmol/L 20-29 Total (test code = 2027-) Calcium (test code 9.0 mg/dL 8.7-10.2 = 35513-6) Protein, Total 6.5 g/dL 6.0-8.5 (test code = 2885-2) Albumin (test code 3.4 g/dL 4.0-5.0 L = 1751-7) Globulin, Total 3.1 g/dL 1.5-4.5 (test code = 54246-4) A/G Ratio (test 1.1 1.2-2.2 L code = 1759-0) Bilirubin, Total 0.4 mg/dL 0.0-1.2 (test code = 1975-2) Alkaline 124 IU/L 44-121 H Phosphatase (test Pl ease note code = 6768-6) reference int erval change
<b r/>Perf ormed by:
[facility] ([place])

AST (SGOT) (test 17 IU/L 0-40 code = 1920-8) ALT (SGPT) (test 23 IU/L 0-44 code = 1742-6) [facility] Description: Phosphate [Mass/volume] in Serum or Plasma 2021-01-30 02:57:00 Test Item Value Reference Range Interpretation Comments Phosphorus (test code = 2777-1) 4.5 mg/dL 2.8-4.1 H [facility] Description: Magnesium [Mass/volume] in Serum or Plasma 2021-01-30 02:57:00 Test Item Value Reference Range Interpretation Comments Magnesium (test code = 84171-6) 1.8 mg/dL 1.6-2.3 [facility] Description: Microscopic [id number] 02:57:00 Test Item Value Reference Range Interpretation Comments WBC (test code = 5821-4) None seen 0-5 RBC (test code = 31054-7) None seen 0-2 Epithelial Cells (non renal) (test None seen 0-10 code = 5787-7) Epithelial Cells (renal) (test code = 11862-7) Casts (test code = 11410-4) None seen None seen Cast Type (test code = 44963-8) Crystals (test code = 5783-6) Crystal Type (test code = 5782-8) Mucus Threads (test code = 8247-9) Bacteria (test code = 5769-5) None seen None seen/Few Yeast (test code = 5822-2) Trichomonas (test code = 5813-1) Comment (test code = 60121-5) [facility] Description: Urate [Mass/volume] in Serum or [id number] 02:57:00 Test Item Value Reference Range Interpretation Comments Uric Acid (test 11.5 mg/dL 3.8-8.4 H code = 3084-1) Therapeutic t arget for gout patients: <6.0

P erformed by:
[facility] [place] ()

[facility] Description: Urinalysis, [id number] 02:24:00 Test Item Value Reference Range Interpretation Comments Specific [place] (test 1.017 1.005-1.030 code = 2965-2) pH (test code = 5.5 5.0-7.5 5803-2) Urine-Color (test code Yellow Yellow = 5778-6) Appearance (test code Clear Clear = 5767-9) WBC Esterase (test Negative Negative code = 5799-2) Protein (test code = 4+ Negative/Trace A 59641-3) Glucose (test code = 1+ Negative A 2349-9) Ketones (test code = Negative Negative 2514-8) Occult Blood (test Trace Negative A code = 5794-3) Bilirubin (test code = Negative Negative 5770-3) Urobilinogen,Semi-Qn 0.2 mg/dL 0.2-1.0 (test code = 58532-6) Nitrite, Urine (test Negative Negative code = 5802-4) Microscopic See below: Microscopic was Examination (test code indic ated and was = 82816-8) performed.

P erformed by:
[facility] [place] ()

[facility] Description: Urinalysis, [id number] 02:24:00 Test Item Value Reference Range Interpretation Comments Specific [place] (test 1.017 1.005-1.030 code = 2965-2) pH (test code = 5.5 5.0-7.5 5803-2) Urine-Color (test code Yellow Yellow = 5778-6) Appearance (test code Clear Clear = 5767-9) WBC Esterase (test Negative Negative code = 5799-2) Protein (test code = 4+ Negative/Trace A 10244-8) Glucose (test code = 1+ Negative A 2349-9) Ketones (test code = Negative Negative 2514-8) Occult Blood (test Trace Negative A code = 5794-3) Bilirubin (test code = Negative Negative 5770-3) Urobilinogen,Semi-Qn 0.2 mg/dL 0.2-1.0 (test code = 22911-7) Nitrite, Urine (test Negative Negative code = 5802-4) Microscopic See below: Microscopic was Examination (test code indic ated and was = 33520-3) performed.

P erformed by:
[facility] [place] ()

[facility] Description: Urinalysis, [id number] 02:24:00 Test Item Value Reference Range Interpretation Comments Specific [place] (test 1.017 1.005-1.030 code = 2965-2) pH (test code = 5.5 5.0-7.5 5803-2) Urine-Color (test code Yellow Yellow = 5778-6) Appearance (test code Clear Clear = 5767-9) WBC Esterase (test Negative Negative code = 5799-2) Protein (test code = 4+ Negative/Trace A 57721-4) Glucose (test code = 1+ Negative A 2349-9) Ketones (test code = Negative Negative 2514-8) Occult Blood (test Trace Negative A code = 5794-3) Bilirubin (test code = Negative Negative 5770-3) Urobilinogen,Semi-Qn 0.2 mg/dL 0.2-1.0 (test code = 00417-1) Nitrite, Urine (test Negative Negative code = 5802-4) Microscopic See below: Microscopic was Examination (test code indic ated and was = 82747-1) performed.

P erformed by:
[facility] [place] ()

[facility] Description: Urinalysis, [id number] 02:24:00 Microscopic ExaminationAccess [facility] Description: Urinalysis, Complete 2021-01-30 02:24:00Microscopic ExaminationAccess [facility] Description: Urinalysis, [id number] 02:24:00Microscopic ExaminationAccess [facility] Description: Natriuretic peptide B [Mass/volume] in Serum or [id number] 13:54:00 Test Item Value Reference Range Interpretation Comments B-Type Natriuretic Peptide (test 427.5 pg/mL 0.0-100.0 H code = 73452-9) [facility] Description: Natriuretic peptide B [Mass/volume] in Serum or [id number] 13:54:00 Test Item Value Reference Range Interpretation Comments B-Type Natriuretic Peptide (test 427.5 pg/mL 0.0-100.0 H code = 22112-1) [facility] Description: Natriuretic peptide B [Mass/volume] in Serum or [id number] 13:54:00 Test Item Value Reference Range Interpretation Comments B-Type Natriuretic Peptide (test 427.5 pg/mL 0.0-100.0 H code = 98839-6) [facility] Description: Natriuretic peptide B [Mass/volume] in Serum or [id number] 13:54:00 Test Item Value Reference Range Interpretation Comments B-Type Natriuretic Peptide (test 427.5 pg/mL 0.0-100.0 H code = 16453-7) [facility] Description: Natriuretic peptide B [Mass/volume] in Serum or [id number] 13:54:00 Test Item Value Reference Range Interpretation Comments B-Type Natriuretic Peptide (test 427.5 pg/mL 0.0-100.0 H code = 06840-1) [facility] Description: Natriuretic peptide B [Mass/volume] in Serum or [id number] 13:54:00 Test Item Value Reference Range Interpretation Comments B-Type Natriuretic Peptide (test 427.5 pg/mL 0.0-100.0 H code = 89125-5) [facility] Description: Natriuretic peptide B [Mass/volume] in Serum or [id number] 13:54:00 Test Item Value Reference Range Interpretation Comments B-Type Natriuretic Peptide (test 427.5 pg/mL 0.0-100.0 H code = 25209-5) [facility] Description: Natriuretic peptide B [Mass/volume] in Serum or [id number] 13:54:00 Test Item Value Reference Range Interpretation Comments B-Type Natriuretic Peptide (test 427.5 pg/mL 0.0-100.0 H code = 68314-4) [facility] Description: Natriuretic peptide B [Mass/volume] in Serum or [id number] 13:54:00 Test Item Value Reference Range Interpretation Comments B-Type Natriuretic Peptide (test 427.5 pg/mL 0.0-100.0 H code = 78013-8) [facility] Description: Phosphate [Mass/volume] in Serum or Plasma 2020-12-04 02:42:00 Test Item Value Reference Range Interpretation Comments Phosphorus (test code = 2777-1) 4.4 mg/dL 2.8-4.1 H [facility] Description: Phosphate [Mass/volume] in Serum or Plasma 2020-12-04 02:42:00 Test Item Value Reference Range Interpretation Comments Phosphorus (test code = 2777-1) 4.4 mg/dL 2.8-4.1 H [facility] Description: Phosphate [Mass/volume] in Serum or Plasma 2020-12-04 02:42:00 Test Item Value Reference Range Interpretation Comments Phosphorus (test code = 2777-1) 4.4 mg/dL 2.8-4.1 H [facility] Description: Phosphate [Mass/volume] in Serum or Plasma 2020-12-04 02:42:00 Test Item Value Reference Range Interpretation Comments Phosphorus (test code = 2777-1) 4.4 mg/dL 2.8-4.1 H [facility] Description: Phosphate [Mass/volume] in Serum or Plasma 2020-12-04 02:42:00 Test Item Value Reference Range Interpretation Comments Phosphorus (test code = 2777-1) 4.4 mg/dL 2.8-4.1 H [facility] Description: Phosphate [Mass/volume] in Serum or Plasma 2020-12-04 02:42:00 Test Item Value Reference Range Interpretation Comments Phosphorus (test code = 2777-1) 4.4 mg/dL 2.8-4.1 H [facility] Description: Phosphate [Mass/volume] in Serum or Plasma 2020-12-04 02:42:00 Test Item Value Reference Range Interpretation Comments Phosphorus (test code = 2777-1) 4.4 mg/dL 2.8-4.1 H [facility] Description: Phosphate [Mass/volume] in Serum or Plasma 2020-12-04 02:42:00 Test Item Value Reference Range Interpretation Comments Phosphorus (test code = 2777-1) 4.4 mg/dL 2.8-4.1 H [facility] Description: Phosphate [Mass/volume] in Serum or Plasma 2020-12-04 02:42:00 Test Item Value Reference Range Interpretation Comments Phosphorus (test code = 2777-1) 4.4 mg/dL 2.8-4.1 H [facility] Description: Comp. Metabolic Panel (14)2020-12-04 02:12:00 Test Item Value Reference Range Interpretation Comments Glucose (test code 315 mg/dL 65-99 H = 2345-7) BUN (test code = 52 mg/dL 6-24 H 3094-0) Creatinine (test 2.32 mg/dL 0.76-1.27 H code = 2160-0) eGFR If NonAfricn 32 >59 L Am (test code = mL/min/1.73 78484-0) eGFR If Africn Am 37 >59 L [facility] currently (test code = mL/min/1.73 [place] [address]-9) compliance with the current recommendations of the National Kid[employer]. [facility] [place] will update re porting as new guidelin es are published from the NKF-ASN Task force.
<br/ >Perfor med by:
[facility] [place] ([place])

BUN/Creatinine 22 9-20 H Ratio (test code = 3097-3) Sodium (test code = 142 mmol/L 458-648 0761-2) Potassium (test 4.3 mmol/L 3.5-5.2 code = 2823-3) Chloride (test code 100 mmol/L 96-106 = 2075-0) Carbon Dioxide, 28 mmol/L 20-29 Total (test code = 2027-) Calcium (test code 9.2 mg/dL 8.7-10.2 = 42094-2) Protein, Total 6.5 g/dL 6.0-8.5 (test code = 2885-2) Albumin (test code 3.5 g/dL 4.0-5.0 L = 1751-7) Globulin, Total 3.0 g/dL 1.5-4.5 (test code = 92244-1) A/G Ratio (test 1.2 1.2-2.2 code = 1759-0) Bilirubin, Total 0.4 mg/dL 0.0-1.2 (test code = 1974-2) Alkaline 107 IU/L 48-121 Phosphatase (test Effectiv e November code = 6768-6) 2020 Mayelin line Phosphatase referenc e interval will b e changing to: Age Ma parker Female 0 - 5 days 47 - [...] 44 - 121

Pe rformed by:
[facility] ([place])

AST (SGOT) (test 20 IU/L 0-40 code = 1920-8) ALT (SGPT) (test 22 IU/L 0-44 code = 1742-6) [facility] Description: Comp. Metabolic Panel (14)2020-12-04 02:12:00 Test Item Value Reference Range Interpretation Comments Glucose (test code 315 mg/dL 65-99 H = 2345-7) BUN (test code = 52 mg/dL 6-24 H 3094-0) Creatinine (test 2.32 mg/dL 0.76-1.27 H code = 2160-0) eGFR If NonAfricn 32 >59 L Am (test code = mL/min/1.73 53753-7) eGFR If Africn Am 37 >59 L [facility] currently (test code = mL/min/1.73 [place] 58258-2) compliance with the current recommendations of the National Kid[employer] Foundation. [facility] [place] will update re porting as new guidelin es are published from the NKF-ASN Task force.
<br/ >Perfor med by:
[facility] [place] [facility] ([place])

BUN/Creatinine 22 9-20 H Ratio (test code = 3097-3) Sodium (test code = 142 mmol/L 019-872 1868-2) Potassium (test 4.3 mmol/L 3.5-5.2 code = 2823-3) Chloride (test code 100 mmol/L 96-106 = 5-0) Carbon Dioxide, 28 mmol/L 20-29 Total (test code = 2027-11) Calcium (test code 9.2 mg/dL 8.7-10.2 = 20854-5) Protein, Total 6.5 g/dL 6.0-8.5 (test code = 2885-2) Albumin (test code 3.5 g/dL 4.0-5.0 L = 175-7) Globulin, Total 3.0 g/dL 1.5-4.5 (test code = 85866-1) A/G Ratio (test 1.2 1.2-2.2 code = 1759-0) Bilirubin, Total 0.4 mg/dL 0.0-1.2 (test code = 1974-) Alkaline 107 IU/L 48-121 Phosphatase (test Effectiv [...] 22 IU/L 0-44 code = 1742-6) [facility] Description: Comp. Metabolic Panel (14)2020-12-04 02:12:00 Test Item Value Reference Range Interpretation Comments Glucose (test code 315 mg/dL 65-99 H = 2345-7) BUN (test code = 52 mg/dL 6-24 H 3094-0) Creatinine (test 2.32 mg/dL 0.76-1.27 H code = 2160-0) eGFR If NonAfricn 32 >59 L Am (test code = mL/min/1.73 13292-7) eGFR If Africn Am 37 >59 L [facility] currently (test code = mL/min/1.73 [place] [address]-8) compliance with the current recommendations of the [employer] Kid[employer] Foundation. [facility] [place] will update re porting as new guidelin es are published from the NKF-ASN Task force.
<br/ >Perfor med by:
[facility] [place] ([place])

BUN/Creatinine 22 9-20 H Ratio (test code = 3097-3) Sodium (test code = 142 mmol/L 184-457 0523-2) Potassium (test 4.3 mmol/L 3.5-5.2 code = 2823-3) Chloride (test code 100 mmol/L 96-106 = 2075-0) Carbon Dioxide, 28 mmol/L 20-29 Total (test code = 2027-) Calcium (test code 9.2 mg/dL 8.7-10.2 = 56532-9) Protein, Total 6.5 g/dL 6.0-8.5 (test code = 2885-2) Albumin (test code 3.5 g/dL 4.0-5.0 L = 1751-7) Globulin, Total 3.0 g/dL 1.5-4.5 (test code = 54210-6) A/G Ratio (test 1.2 1.2-2.2 code = 1759-0) Bilirubin, Total 0.4 mg/dL 0.0-1.2 (test code = 1975-2) Alkaline 107 IU/L 48-121 Phosphatase (test Effectiv e November code = 6768-6) 2020 Mayelin line Phosphatase referenc e interval will b e changing to: Age Ma parker Female 0 - 5 days 47 - [...] 22 IU/L 0-44 code = 1742-6) [facility] Description: Comp. Metabolic Panel (14)2020-12-04 02:12:00 Test Item Value Reference Range Interpretation Comments Glucose (test code 315 mg/dL 65-99 H = 2345-7) BUN (test code = 52 mg/dL 6-24 H 3094-0) Creatinine (test 2.32 mg/dL 0.76-1.27 H code = 2160-0) eGFR If NonAfricn 32 >59 L Am (test code = mL/min/1.73 12725-7) eGFR If Africn Am 37 >59 L [facility] currently (test code = mL/min/1.73 [place] [address]-3) compliance with the current recommendations of the National Kid[employer] Foundation. [facility] [place] will update re porting as new guidelin es are published from the NKF-ASN Task force.
<br/ >Perfor med by:
[facility] [place] [facility] ([place])

BUN/Creatinine 22 9-20 H Ratio (test code = 3097-3) Sodium (test code = 142 mmol/L 730-088 6263-2) Potassium (test 4.3 mmol/L 3.5-5.2 code = 2823-3) Chloride (test code 100 mmol/L 96-106 = 5-0) Carbon Dioxide, 28 mmol/L 20-29 Total (test code = 2027-) Calcium (test code 9.2 mg/dL 8.7-10.2 = 37024-7) Protein, Total 6.5 g/dL 6.0-8.5 (test code = 2885-2) Albumin (test code 3.5 g/dL 4.0-5.0 L = 175-7) Globulin, Total 3.0 g/dL 1.5-4.5 (test code = 14861-3) A/G Ratio (test 1.2 1.2-2.2 code = 1759-0) Bilirubin, Total 0.4 mg/dL 0.0-1.2 (test code = 1974-2) Alkaline 107 IU/L 48-121 Phosphatase (test Effectiv [...] 44 - 121

Pe rformed by:
[facility] ([place])

AST (SGOT) (test 20 IU/L 0-40 code = 1920-8) ALT (SGPT) (test 22 IU/L 0-44 code = 1742-6) [facility] Description: Comp. Metabolic Panel (14)2020-12-04 02:12:00 Test Item Value Reference Range Interpretation Comments Glucose (test code 315 mg/dL 65-99 H = 2345-7) BUN (test code = 52 mg/dL 6-24 H 3094-0) Creatinine (test 2.32 mg/dL 0.76-1.27 H code = 2160-0) eGFR If NonAfricn 32 >59 L Am (test code = mL/min/1.73 42774-8) eGFR If Africn Am 37 >59 L [facility] currently (test code = mL/min/1.73 [place] [address]-1) compliance with the current recommendations of the National Kidney Foundation. [facility] [place] will update re porting as new guidelin es are published from the NKF-ASN Task force.
<br/ >Perfor med by:
[facility] [place] [facility] ([place])

BUN/Creatinine 22 9-20 H Ratio (test code = 3097-3) Sodium (test code = 142 mmol/L 341-395 0134-2) Potassium (test 4.3 mmol/L 3.5-5.2 code = 2823-3) Chloride (test code 100 mmol/L 96-106 = 2075-0) Carbon Dioxide, 28 mmol/L 20-29 Total (test code = 2027-) Calcium (test code 9.2 mg/dL 8.7-10.2 = 29682-7) Protein, Total 6.5 g/dL 6.0-8.5 (test code = 2885-2) Albumin (test code 3.5 g/dL 4.0-5.0 L = 1751-7) Globulin, Total 3.0 g/dL 1.5-4.5 (test code = 15179-2) A/G Ratio (test 1.2 1.2-2.2 code = [...] 44 - 121

Pe rformed by:
[facility] ([place])

AST (SGOT) (test 20 IU/L 0-40 code = 1920-8) ALT (SGPT) (test 22 IU/L 0-44 code = 1742-6) [facility] Description: Comp. Metabolic Panel (14)2020-12-04 02:12:00 Test Item Value Reference Range Interpretation Comments Glucose (test code 315 mg/dL 65-99 H = 2345-7) BUN (test code = 52 mg/dL 6-24 H 3094-0) Creatinine (test 2.32 mg/dL 0.76-1.27 H code = 2160-0) eGFR If NonAfricn 32 >59 L Am (test code = mL/min/1.73 56711-0) eGFR If Africn Am 37 >59 L [facility] currently (test code = mL/min/1.73 [place] [address]-9) compliance with the current recommendations of the National Kidney Foundation. [facility] [place] will update re porting as new guidelin es are published from the NKF-ASN Task force.
<br/ >Perfor med by:
[facility] [place] ([place])

BUN/Creatinine 22 9-20 H Ratio (test code = 3097-3) Sodium (test code = 142 mmol/L 362-063 9089-2) Potassium (test 4.3 mmol/L 3.5-5.2 code = 2823-3) Chloride (test code 100 mmol/L 96-106 = 5-0) Carbon Dioxide, 28 mmol/L 20-29 Total (test code = 2027-) Calcium (test code 9.2 mg/dL 8.7-10.2 = 74096-4) Protein, Total 6.5 g/dL 6.0-8.5 (test code = 2885-2) Albumin (test code 3.5 g/dL 4.0-5.0 L = 1751-7) Globulin, Total 3.0 g/dL 1.5-4.5 (test code = 62190-5) A/G Ratio (test 1.2 1.2-2.2 code = 1759-0) Bilirubin, Total 0.4 mg/dL 0.0-1.2 (test code = 1974-2) Alkaline 107 IU/L 48-121 Phosphatase (test Effectiv [...] 44 - 121

Pe rformed by:
[facility] ([place])

AST (SGOT) (test 20 IU/L 0-40 code = 1920-8) ALT (SGPT) (test 22 IU/L 0-44 code = 1742-6) [facility] Description: Comp. Metabolic Panel (142020-12-04 02:12:00 Test Item Value Reference Range Interpretation Comments Glucose (test code 315 mg/dL 65-99 H = 2345-7) BUN (test code = 52 mg/dL 6-24 H 3094-0) Creatinine (test 2.32 mg/dL 0.76-1.27 H code = 2160-0) eGFR If NonAfricn 32 >59 L Am (test code = mL/min/1.73 09290-2) eGFR If Africn Am 37 >59 L [facility] currently (test code = mL/min/1.73 [place] [address]-4) compliance with the current recommendations of the National Kidney Foundation. [facility] [place] will update re porting as new guidelin es are published from the NKF-ASN Task force.
<br/ >Perfor med by:
[facility] [place] [facility] ([place])

BUN/Creatinine 22 9-20 H Ratio (test code = 3097-3) Sodium (test code = 142 mmol/L 588-569 7222-2) Potassium (test 4.3 mmol/L 3.5-5.2 code = 2823-3) Chloride (test code 100 mmol/L 96-106 = 2075-0) Carbon Dioxide, 28 mmol/L 20-29 Total (test code = 2027-) Calcium (test code 9.2 mg/dL 8.7-10.2 = 64200-6) Protein, Total 6.5 g/dL 6.0-8.5 (test code = 2885-2) Albumin (test code 3.5 g/dL 4.0-5.0 L = 1751-7) Globulin, Total 3.0 g/dL 1.5-4.5 (test code = 36448-3) A/G Ratio (test 1.2 1.2-2.2 code = [...] 44 - 121

Pe rformed by:
[facility] [place] ([place])

AST (SGOT) (test 20 IU/L 0-40 [...] >59 L Am (test code = mL/min/1.73 68283-4) eGFR If Africn Am 37 >59 L [facility] currently (test code = mL/min/1.73 [place] [address]-1) compliance with the current recommendations of the National Kidney Foundation. [facility] [place] will update re porting as new guidelin es are published from the NKF-ASN Task force.
<br/ >Perfor med by:
[facility] [place] ([place])

BUN/Creatinine 22 9-20 H Ratio (test code = 3097-3) Sodium (test code = 142 mmol/L 913-357 5209-2) Potassium (test 4.3 mmol/L 3.5-5.2 code = 2823-3) Chloride (test code 100 mmol/L 96-106 = 2075-0) Carbon Dioxide, 28 mmol/L 20-29 Total (test code = 2027-) Calcium (test code 9.2 mg/dL 8.7-10.2 = 01034-6) Protein, Total 6.5 g/dL 6.0-8.5 (test code = 2885-2) Albumin (test code 3.5 g/dL 4.0-5.0 L = 1751-7) Globulin, Total 3.0 g/dL 1.5-4.5 (test code = 91307-5) A/G Ratio (test 1.2 1.2-2.2 code = 1759-0) Bilirubin, Total 0.4 mg/dL 0.0-1.2 (test code = 1974-) Alkaline 107 IU/L 48-121 Phosphatase (test Effectiv [...] >59 L Am (test code = mL/min/1.73 13824-3) eGFR If Africn Am 37 >59 L [facility] currently (test code = mL/min/1.73 [place] [address]-7) compliance with the current recommendations of the National Kidney Foundation. [facility] [place] will update re porting as new guidelin es are published from the NKF-ASN Task force.
<br/ >Perfor med by:
[facility] [place] [facility] ([place])

BUN/Creatinine 22 9-20 H Ratio (test code = 3097-3) Sodium (test code = 142 mmol/L 982-978 4200-2) Potassium (test 4.3 mmol/L 3.5-5.2 code = 2823-3) Chloride (test code 100 mmol/L 96-106 = 2075-0) Carbon Dioxide, 28 mmol/L 20-29 Total (test code = 2027-9) Calcium (test code 9.2 mg/dL 8.7-10.2 = 32598-0) Protein, Total 6.5 g/dL 6.0-8.5 (test code = 2885-2) Albumin (test code 3.5 g/dL 4.0-5.0 L = 1751-7) Globulin, Total 3.0 g/dL 1.5-4.5 (test code = 77393-5) A/G Ratio (test 1.2 1.2-2.2 code = [...] 22 IU/L 0-44 code = 1742-6) [facility] Description: Natriuretic peptide B [Mass/volume] in Serum or Vuaztf8501-96-47 14:32:00 Test Item Value Reference Range Interpretation Comments B-Type Natriuretic Peptide (test 682.3 pg/mL 0.0-100.0 H code = 16305-2) [facility] Description: Natriuretic peptide B [Mass/volume] in Serum or Cigkto3581-13-47 14:32:00 Test Item Value Reference Range Interpretation Comments B-Type Natriuretic Peptide (test 682.3 pg/mL 0.0-100.0 H code = 13338-8) [facility] Description: Natriuretic peptide B [Mass/volume] in Serum or Kpmtmt1958-44-79 14:32:00 Test Item Value Reference Range Interpretation Comments B-Type Natriuretic Peptide (test 682.3 pg/mL 0.0-100.0 H code = 80984-7) [facility] Description: Natriuretic peptide B [Mass/volume] in Serum or Xupoti2507-07-77 14:32:00 Test Item Value Reference Range Interpretation Comments B-Type Natriuretic Peptide (test 682.3 pg/mL 0.0-100.0 H code = 85194-1) [facility] Description: Natriuretic peptide B [Mass/volume] in Serum or Rmgala8934-09-44 14:32:00 Test Item Value Reference Range Interpretation Comments B-Type Natriuretic Peptide (test 682.3 pg/mL 0.0-100.0 H code = 89266-2) [facility] Description: Natriuretic peptide B [Mass/volume] in Serum or Kjorvt2201-49-88 14:32:00 Test Item Value Reference Range Interpretation Comments B-Type Natriuretic Peptide (test 682.3 pg/mL 0.0-100.0 H code = 04131-1) [facility] Description: Natriuretic peptide B [Mass/volume] in Serum or Ijqpvs7819-36-53 14:32:00 Test Item Value Reference Range Interpretation Comments B-Type Natriuretic Peptide (test 682.3 pg/mL 0.0-100.0 H code = 27731-9) [facility] Description: Natriuretic peptide B [Mass/volume] in Serum or [id number] 14:32:00 Test Item Value Reference Range Interpretation Comments B-Type Natriuretic Peptide (test 682.3 pg/mL 0.0-100.0 H code = 03069-6) [facility] Description: Natriuretic peptide B [Mass/volume] in Serum or Cllobc2233-12-55 14:32:00 Test Item Value Reference Range Interpretation Comments B-Type Natriuretic Peptide (test 682.3 pg/mL 0.0-100.0 H code = 28614-8) [facility] Description: Natriuretic peptide B [Mass/volume] in Serum or Arqcmy8590-40-11 14:32:00 Test Item Value Reference Range Interpretation Comments B-Type Natriuretic Peptide (test 682.3 pg/mL 0.0-100.0 H code = 78118-6) [facility] Description: Natriuretic peptide B [Mass/volume] in Serum or Wjkgra9541-18-10 14:32:00 Test Item Value Reference Range Interpretation Comments B-Type Natriuretic Peptide (test 682.3 pg/mL 0.0-100.0 H code = 73643-8) [facility] Description: Parathyrin.intact [Mass/volume] in Serum or [id number] 08:48:00 Test Item Value Reference Range Interpretation Comments PTH, Intact (test code = 2731-8) 147 pg/mL 15-65 H [facility] Description: Parathyrin.intact [Mass/volume] in Serum or Egmmqg0534-98-23 08:48:00 Test Item Value Reference Range Interpretation Comments PTH, Intact (test code = 2731-8) 147 pg/mL 15-65 H [facility] Description: Parathyrin.intact [Mass/volume] in Serum or Ulecfy9091-85-75 08:48:00 Test Item Value Reference Range Interpretation Comments PTH, Intact (test code = 2731-8) 147 pg/mL 15-65 H [facility] Description: Parathyrin.intact [Mass/volume] in Serum or Wsvwgl3939-56-68 08:48:00 Test Item Value Reference Range Interpretation Comments PTH, Intact (test code = 2731-8) 147 pg/mL 15-65 H [facility] Description: Parathyrin.intact [Mass/volume] in Serum or Tqhgio5460-54-33 08:48:00 Test Item Value Reference Range Interpretation Comments PTH, Intact (test code = 2731-8) 147 pg/mL 15-65 H [facility] Description: Parathyrin.intact [Mass/volume] in Serum or Nfemmz1363-11-48 08:48:00 Test Item Value Reference Range Interpretation Comments PTH, Intact (test code = 2731-8) 147 pg/mL 15-65 H [facility] Description: Parathyrin.intact [Mass/volume] in Serum or Roifke9010-47-84 08:48:00 Test Item Value Reference Range Interpretation Comments PTH, Intact (test code = 2731-8) 147 pg/mL 15-65 H [facility] Description: Parathyrin.intact [Mass/volume] in Serum or Phruxp6105-03-06 08:48:00 Test Item Value Reference Range Interpretation Comments PTH, Intact (test code = 2731-8) 147 pg/mL 15-65 H [facility] Description: Parathyrin.intact [Mass/volume] in Serum or Mtrchz5546-05-96 08:48:00 Test Item Value Reference Range Interpretation Comments PTH, Intact (test code = 2731-8) 147 pg/mL 15-65 H [facility] Description: Parathyrin.intact [Mass/volume] in Serum or Sumtzf8223-99-75 08:48:00 Test Item Value Reference Range Interpretation Comments PTH, Intact (test code = 2731-8) 147 pg/mL 15-65 H [facility] Description: Parathyrin.intact [Mass/volume] in Serum or Rxfxfz4933-05-00 08:48:00 Test Item Value Reference Range Interpretation [...]

P erformed by:
[facility] ()

[facility] Description: Hemoglobin A1c/Hemoglobin.total in Blood 2020-10-30 05:01:00 Test Item Value Reference Range Interpretation Comments Hemoglobin A1c (test code 8.4 % 4.8-5.6 H = 4548-4) . Prediabetes: 5. 7 - 6.4 Diabetes : >6.4 Glycemic control for adults with diabetes: <7.0

P erformed by:
[facility] ()

[facility] Description: Hemoglobin A1c/Hemoglobin.total in Blood 2020-10-30 05:01:00 [...]

P erformed by:
[facility] ()

[facility] Description: Hemoglobin A1c/Hemoglobin.total in Blood 2020-10-30 05:01:00 Test Item Value Reference Range Interpretation Comments Hemoglobin A1c (test code 8.4 % 4.8-5.6 H = 4548-4) . Prediabetes: 5. 7 - 6.4 Diabetes : >6.4 Glycemic control for adults with diabetes: <7.0

P erformed by:
[facility] ()

[facility] Description: Hemoglobin A1c/Hemoglobin.total in [...] with diabetes: <7.0

P erformed by:
[facility] [place] ([place])

[facility] Description: Hemoglobin A1c/Hemoglobin.total in Blood 2020-10-30 05:01:00 Test Item Value Reference Range Interpretation Comments Hemoglobin A1c (test code 8.4 % 4.8-5.6 H = 4548-4) . Prediabetes: 5. 7 - 6.4 Diabetes : >6.4 Glycemic control for adults with diabetes: <7.0

P erformed by:
[facility] [place] ([place])

[facility] Description: Hemoglobin A1c/Hemoglobin.total in Blood 2020-10-30 05:01:00 Test Item Value Reference Range Interpretation Comments Hemoglobin A1c (test code 8.4 % 4.8-5.6 H = 4548-4) . Prediabetes: 5. 7 - 6.4 Diabetes : >6.4 Glycemic control for adults with diabetes: <7.0

P erformed by:
[facility] [place] ()

[facility]: Microscopic Gwiybikujmu1525-18-85 04:44:00 Test Item Value Reference Range Interpretation Comments WBC (test code = 5821-4) None seen 0-5 RBC (test code = 90405-1) None seen 0-2 Epithelial Cells (non renal) (test None seen 0-10 code = 5787-7) Epithelial Cells (renal) (test code = 24516-6) Casts (test code = 89339-7) None seen None seen Cast Type (test code = 30329-9) Crystals (test code = 5783-6) Crystal Type (test code = 5782-8) Mucus Threads (test code = 8247-9) Bacteria (test code = 5769-5) None seen None seen/Few Yeast (test code = 5822-2) Trichomonas (test code = 5813-1) Comment (test code = 47871-7) [facility] Description: Microscopic Elkpdpawgvc3282-50-91 04:44:00 Test Item Value Reference Range Interpretation Comments WBC (test code = 5821-4) None seen 0-5 RBC (test code = 81116-5) None seen 0-2 Epithelial Cells (non renal) (test None seen 0-10 code = 5787-7) Epithelial Cells (renal) (test code = 67260-6) Casts (test code = 84014-2) None seen None seen Cast Type (test code = 43255-3) Crystals (test code = 5783-6) Crystal Type (test code = 5782-8) Mucus Threads (test code = 8247-9) Bacteria (test code = 5769-5) None seen None seen/Few Yeast (test code = 5822-2) Trichomonas (test code = 5813-1) Comment (test code = 18059-1) [facility] Description: Microscopic Cxoyfbxpcom3587-78-27 04:44:00 Test Item Value Reference Range Interpretation Comments WBC (test code = 5821-4) None seen 0-5 RBC (test code = 56142-7) None seen 0-2 Epithelial Cells (non renal) (test None seen 0-10 code = 5787-7) Epithelial Cells (renal) (test code = 78627-2) Casts (test code = 74207-5) None seen None seen Cast Type (test code = 22917-1) Crystals (test code = 5783-6) Crystal Type (test code = 5782-8) Mucus Threads (test code = 8247-9) Bacteria (test code = 5769-5) None seen None seen/Few Yeast (test code = 5822-2) Trichomonas (test code = 5813-1) Comment (test code = 82672-7) [facility] Description: Microscopic Bdvtxtrmdtm3046-85-51 04:44:00 Test Item Value Reference Range Interpretation Comments WBC (test code = 5821-4) None seen 0-5 RBC (test code = 53633-4) None seen 0-2 Epithelial Cells (non renal) (test None seen 0-10 code = 5787-7) Epithelial Cells (renal) (test code = 53418-2) Casts (test code = 99238-9) None seen None seen Cast Type (test code = 18711-1) Crystals (test code = 5783-6) Crystal Type (test code = 5782-8) Mucus Threads (test code = 8247-9) Bacteria (test code = 5769-5) None seen None seen/Few Yeast (test code = 5822-2) Trichomonas (test code = 5813-1) Comment (test code = 73595-3) [facility] Description: Microscopic Ricqqloybco8048-72-58 04:44:00 Test Item Value Reference Range Interpretation Comments WBC (test code = 5821-4) None seen 0-5 RBC (test code = 83667-3) None seen 0-2 Epithelial Cells (non renal) (test None seen 0-10 code = 5787-7) Epithelial Cells (renal) (test code = 49965-9) Casts (test code = 83291-1) None seen None seen Cast Type (test code = 80904-6) Crystals (test code = 5783-6) Crystal Type (test code = 5782-8) Mucus Threads (test code = 8247-9) Bacteria (test code = 5769-5) None seen None seen/Few Yeast (test code = 5822-2) Trichomonas (test code = 5813-1) Comment (test code = 59569-3) [facility] Description: Microscopic Iadsmxydcma7064-65-36 04:44:00 Test Item Value Reference Range Interpretation Comments WBC (test code = 5821-4) None seen 0-5 RBC (test code = 08517-3) None seen 0-2 Epithelial Cells (non renal) (test None seen 0-10 code = 5787-7) Epithelial Cells (renal) (test code = 57654-1) Casts (test code = 69216-4) None seen None seen Cast Type (test code = 72042-1) Crystals (test code = 5783-6) Crystal Type (test code = 5782-8) Mucus Threads (test code = 8247-9) Bacteria (test code = 5769-5) None seen None seen/Few Yeast (test code = 5822-2) Trichomonas (test code = 5813-1) Comment (test code = 48103-1) [facility]: [facility]opic Fjnzjgcuevn1345-24-93 04:44:00 Test Item Value Reference Range Interpretation Comments WBC (test code = 5821-4) None seen 0-5 RBC (test code = 00599-7) None seen 0-2 Epithelial Cells (non renal) (test None seen 0-10 code = 5787-7) Epithelial Cells (renal) (test code = 93598-8) Casts (test code = 53915-2) None seen None seen Cast Type (test code = 75436-3) Crystals (test code = 5783-6) Crystal Type (test code = 5782-8) Mucus Threads (test code = 8247-9) Bacteria (test code = 5769-5) None seen None seen/Few Yeast (test code = 5822-2) Trichomonas (test code = 5813-1) Comment (test code = 78942-7) [facility] Description: Microscopic Qqbyktovvmt9462-01-32 04:44:00 Test Item Value Reference Range Interpretation Comments WBC (test code = 5821-4) None seen 0-5 RBC (test code = 18311-6) None seen 0-2 Epithelial Cells (non renal) (test None seen 0-10 code = 5787-7) Epithelial Cells (renal) (test code = 22632-1) Casts (test code = 18018-3) None seen None seen Cast Type (test code = 76902-2) Crystals (test code = 5783-6) Crystal Type (test code = 5782-8) Mucus Threads (test code = 8247-9) Bacteria (test code = 5769-5) None seen None seen/Few Yeast (test code = 5822-2) Trichomonas (test code = 5813-1) Comment (test code = 34764-5) [facility] Description: Microscopic Hxsptgkhcno9882-59-71 04:44:00 Test Item Value Reference Range Interpretation Comments WBC (test code = 5821-4) None seen 0-5 RBC (test code = 93515-5) None seen 0-2 Epithelial Cells (non renal) (test None seen 0-10 code = 5787-7) Epithelial Cells (renal) (test code = 70750-8) Casts (test code = 09199-6) None seen None seen Cast Type (test code = 42156-9) Crystals (test code = 5783-6) Crystal Type (test code = 5782-8) Mucus Threads (test code = 8247-9) Bacteria (test code = 5769-5) None seen None seen/Few Yeast (test code = 5822-2) Trichomonas (test code = 5813-1) Comment (test code = 59457-2) [facility] Description: Microscopic Mgfyzppecag2606-05-66 04:44:00 Test Item Value Reference Range Interpretation Comments WBC (test code = 5821-4) None seen 0-5 RBC (test code = 12650-1) None seen 0-2 Epithelial Cells (non renal) (test None seen 0-10 code = 5787-7) Epithelial Cells (renal) (test code = 19854-9) Casts (test code = 42687-1) None seen None seen Cast Type (test code = 45591-2) Crystals (test code = 5783-6) Crystal Type (test code = 5782-8) Mucus Threads (test code = 8247-9) Bacteria (test code = 5769-5) None seen None seen/Few Yeast (test code = 5822-2) Trichomonas (test code = 5813-1) Comment (test code = 17046-1) [facility] Description: Microscopic Kbapfrjfbox6925-98-16 04:44:00 Test Item Value Reference Range Interpretation Comments WBC (test code = 5821-4) None seen 0-5 RBC (test code = 37346-7) None seen 0-2 Epithelial Cells (non renal) (test None seen 0-10 code = 5787-7) Epithelial Cells (renal) (test code = 67459-0) Casts (test code = 57249-8) None seen None seen Cast Type (test code = 70658-9) Crystals (test code = 5783-6) Crystal Type (test code = 5782-8) Mucus Threads (test code = 8247-9) Bacteria (test code = 5769-5) None seen None seen/Few Yeast (test code = 5822-2) Trichomonas (test code = 5813-1) Comment (test code = 66518-5) [facility] Description: Urinalysis, Kzohlavm0114-28-16 04:43:00 Test Item Value Reference Range Interpretation Comments Specific [place] (test 1.012 1.005-1.030 code = 2965-2) pH (test code = 5.5 5.0-7.5 5803-2) Urine-Color (test code Yellow Yellow = 5778-6) Appearance (test code Clear Clear = 5767-9) WBC Esterase (test Negative Negative code = 5799-2) Protein (test code = 4+ Negative/Trace A 33547-2) Glucose (test code = Trace Negative A 2349-9) Ketones (test code = Negative Negative 2514-8) Occult Blood (test Trace Negative A code = 5794-3) Bilirubin (test code = Negative Negative 5770-3) Urobilinogen,Semi-Qn 0.2 mg/dL 0.2-1.0 (test code = 11880-6) Nitrite, Urine (test Negative Negative code = 5802-4) Microscopic See below: Microscopic was Examination (test code indic ated and was = 71316-8) performed.

P erformed by:
[facility] ()

[facility] Description: Urinalysis, Yshhsqqc3184-93-20 04:43:00 Test Item Value Reference Range Interpretation Comments Specific [place] (test 1.012 1.005-1.030 code = 2965-2) pH (test code = 5.5 5.0-7.5 5803-2) Urine-Color (test code Yellow Yellow = 5778-6) Appearance (test code Clear Clear = 5767-9) WBC Esterase (test Negative Negative code = 5799-2) Protein (test code = 4+ Negative/Trace A 61597-8) Glucose (test code = Trace Negative A 2349-9) Ketones (test code = Negative Negative 2514-8) Occult Blood (test Trace Negative A code = 5794-3) Bilirubin (test code = Negative Negative 5770-3) Urobilinogen,Semi-Qn 0.2 mg/dL 0.2-1.0 (test code = 31781-0) Nitrite, Urine (test Negative Negative code = 5802-4) Microscopic See below: Microscopic was Examination (test code indic ated and was = 82246-0) performed.

P erformed by:
[facility] ()

[facility] Description: Urinalysis, [id number] 04:43:00 Test Item Value Reference Range Interpretation Comments Specific [place] (test 1.012 1.005-1.030 code = 2965-2) pH (test code = 5.5 5.0-7.5 5803-2) Urine-Color (test code Yellow Yellow = 5778-6) Appearance (test code Clear Clear = 5767-9) WBC Esterase (test Negative Negative code = 5799-2) Protein (test code = 4+ Negative/Trace A 94789-3) Glucose (test code = Trace Negative A 2349-9) Ketones (test code = Negative Negative 2514-8) Occult Blood (test Trace Negative A code = 5794-3) Bilirubin (test code = Negative Negative 5770-3) Urobilinogen,Semi-Qn 0.2 mg/dL 0.2-1.0 (test code = 74284-2) Nitrite, Urine (test Negative Negative code = 5802-4) Microscopic See below: Microscopic was Examination (test code indic ated and was = 61901-6) performed.

P erformed by:
[facility] ()

[facility] Description: Urinalysis, [id number] 04:43:00 Test Item Value Reference Range Interpretation Comments Specific [place] (test 1.012 1.005-1.030 code = 2965-2) pH (test code = 5.5 5.0-7.5 5803-2) Urine-Color (test code Yellow Yellow = 5778-6) Appearance (test code Clear Clear = 5767-9) WBC Esterase (test Negative Negative code = 5799-2) Protein (test code = 4+ Negative/Trace A 81701-6) Glucose (test code = Trace Negative A 2349-9) Ketones (test code = Negative Negative 2514-8) Occult Blood (test Trace Negative A code = 5794-3) Bilirubin (test code = Negative Negative 5770-3) Urobilinogen,Semi-Qn 0.2 mg/dL 0.2-1.0 (test code = 12862-4) Nitrite, Urine (test Negative Negative code = 5802-4) Microscopic See below: Microscopic was Examination (test code indic ated and was = 66165-7) performed.

P erformed by:
[facility] ()

[facility] Description: Urinalysis, [id number] 04:43:00 Test Item Value Reference Range Interpretation Comments Specific [place] (test 1.012 1.005-1.030 code = 2965-2) pH (test code = 5.5 5.0-7.5 5803-2) Urine-Color (test code Yellow Yellow = 5778-6) Appearance (test code Clear Clear = 5767-9) WBC Esterase (test Negative Negative code = 5799-2) Protein (test code = 4+ Negative/Trace A 24065-6) Glucose (test code = Trace Negative A 2349-9) Ketones (test code = Negative Negative 2514-8) Occult Blood (test Trace Negative A code = 5794-3) Bilirubin (test code = Negative Negative 5770-3) Urobilinogen,Semi-Qn 0.2 mg/dL 0.2-1.0 (test code = 24685-3) Nitrite, Urine (test Negative Negative code = 5802-4) Microscopic See below: Microscopic was Examination (test code indic atecatrachito and was = 52188-1) performed.

P erformed by:
[facility] ()

[facility] Description: Urinalysis, [id number] 04:43:00 Test Item Value Reference Range Interpretation Comments Specific [place] (test 1.012 1.005-1.030 code = 2965-2) pH (test code = 5.5 5.0-7.5 5803-2) Urine-Color (test code Yellow Yellow = 5778-6) Appearance (test code Clear Clear = 5767-9) WBC Esterase (test Negative Negative code = 5799-2) Protein (test code = 4+ Negative/Trace A 20168-8) Glucose (test code = Trace Negative A 2349-9) Ketones (test code = Negative Negative 2514-8) Occult Blood (test Trace Negative A code = 5794-3) Bilirubin (test code = Negative Negative 5770-3) Urobilinogen,Semi-Qn 0.2 mg/dL 0.2-1.0 (test code = 12690-7) Nitrite, Urine (test Negative Negative code = 5802-4) Microscopic See below: Microscopic was Examination (test code indic ated and was = 87787-8) performed.

P erformed by:
[facility] [place] ()

[employer] [facility] Description: Urinalysis, [id number] 04:43:00 Test Item Value Reference Range Interpretation Comments Specific [place] (test 1.012 1.005-1.030 code = 2965-2) pH (test code = 5.5 5.0-7.5 5803-2) Urine-Color (test code Yellow Yellow = 5778-6) Appearance (test code Clear Clear = 5767-9) WBC Esterase (test Negative Negative code = 5799-2) Protein (test code = 4+ Negative/Trace A 83310-8) Glucose (test code = Trace Negative A 2349-9) Ketones (test code = Negative Negative 2514-8) Occult Blood (test Trace Negative A code = 5794-3) Bilirubin (test code = Negative Negative 5770-3) Urobilinogen,Semi-Qn 0.2 mg/dL 0.2-1.0 (test code = 84703-1) Nitrite, Urine (test Negative Negative code = 5802-4) Microscopic See below: Microscopic was Examination (test code indic ated and was = 26586-2) performed.

P erformed by:
[facility] ()

[employer] [facility] Description: Urinalysis, [id number] 04:43:00 Test Item Value Reference Range Interpretation Comments Specific [place] (test 1.012 1.005-1.030 code = 2965-2) pH (test code = 5.5 5.0-7.5 5803-2) Urine-Color (test code Yellow Yellow = 5778-6) Appearance (test code Clear Clear = 5767-9) WBC Esterase (test Negative Negative code = 5799-2) Protein (test code = 4+ Negative/Trace A 38288-2) Glucose (test code = Trace Negative A 2349-9) Ketones (test code = Negative Negative 2514-8) Occult Blood (test Trace Negative A code = 5794-3) Bilirubin (test code = Negative Negative 5770-3) Urobilinogen,Semi-Qn 0.2 mg/dL 0.2-1.0 (test code = 28778-8) Nitrite, Urine (test Negative Negative code = 5802-4) Microscopic See below: Microscopic was Examination (test code indic ated and was = 60424-3) performed.

P erformed by:
[facility] ()

[employer] [facility] Description: Urinalysis, [id number] 04:43:00 Test Item Value Reference Range Interpretation Comments Specific [place] (test 1.012 1.005-1.030 code = 2965-2) pH (test code = 5.5 5.0-7.5 5803-2) Urine-Color (test code Yellow Yellow = 5778-6) Appearance (test code Clear Clear = 5767-9) WBC Esterase (test Negative Negative code = 5799-2) Protein (test code = 4+ Negative/Trace A 66953-4) Glucose (test code = Trace Negative A 2349-9) Ketones (test code = Negative Negative 2514-8) Occult Blood (test Trace Negative A code = 5794-3) Bilirubin (test code = Negative Negative 5770-3) Urobilinogen,Semi-Qn 0.2 mg/dL 0.2-1.0 (test code = 72730-6) Nitrite, Urine (test Negative Negative code = 5802-4) Microscopic See below: Microscopic was Examination (test code indic ated and was = 23403-2) performed.

P erformed by:
[facility] ()

[employer] [facility] Description: Urinalysis, Dhflpjtn1646-70-25 04:43:00 Test Item Value Reference Range Interpretation Comments Specific [place] (test 1.012 1.005-1.030 code = 2965-2) pH (test code = 5.5 5.0-7.5 5803-2) Urine-Color (test code Yellow Yellow = 5778-6) Appearance (test code Clear Clear = 5767-9) WBC Esterase (test Negative Negative code = 5799-2) Protein (test code = 4+ Negative/Trace A 64611-1) Glucose (test code = Trace Negative A 2349-9) Ketones (test code = Negative Negative 2514-8) Occult Blood (test Trace Negative A code = 5794-3) Bilirubin (test code = Negative Negative 5770-3) Urobilinogen,Semi-Qn 0.2 mg/dL 0.2-1.0 (test code = 89892-2) Nitrite, Urine (test Negative Negative code = 5802-4) Microscopic See below: Microscopic was Examination (test code indic ated and was = 45989-7) performed.

P erformed by:
[facility] ()

[facility] Description: Urinalysis, Orfwvfdb2355-55-06 04:43:00 Test Item Value Reference Range Interpretation Comments Specific [place] (test 1.012 1.005-1.030 code = 2965-2) pH (test code = 5.5 5.0-7.5 5803-2) Urine-Color (test code Yellow Yellow = 5778-6) Appearance (test code Clear Clear = 5767-9) WBC Esterase (test Negative Negative code = 5799-2) Protein (test code = 4+ Negative/Trace A 00538-4) Glucose (test code = Trace Negative A 2349-9) Ketones (test code = Negative Negative 2514-8) Occult Blood (test Trace Negative A code = 5794-3) Bilirubin (test code = Negative Negative 5770-3) Urobilinogen,Semi-Qn 0.2 mg/dL 0.2-1.0 (test code = 50549-7) Nitrite, Urine (test Negative Negative code = 5802-4) Microscopic See below: Microscopic was Examination (test code indic ated and was = 47121-4) performed.

P erformed by:
[facility] ([place])

[facility] Description: Urinalysis, Qoxgagtb3519-01-76 04:43:00 [facility] Description: Urinalysis, Complete 2020-10-30 04:43:00[facility]sc[facility] Description: Urinalysis, Wdtdkrce3830-46-05 04:43:00[facility]sc[facility] Description: Urinalysis, [id number] 04:43:00Microscopic Examination [facility] Description: Urinalysis, Qrnestnr0144-36-12 04:43:00 Microscopic [facility] Description: Urinalysis, Complete 2020-10-30 04:43:00[facility]sc[facility] Description: Urinalysis, [id number] 04:43:00[facility]scopic [facility] Description: Urinalysis, [id number] 04:43:00Microscopic Examination [facility] Description: Urinalysis, Shceyjkm8193-03-86 04:43:00 Microscopic Examination[facility] Description: Urinalysis, Complete 2020-10-30 04:43:00Microscopic Examination[facility] Description: Urinalysis, [id number] 04:43:00Microscopic ExaminationAccess [facility] Description: 25-hydroxyvitamin D3 [Mass/volume] in Serum or [id number] 04:26:00 Test Item Value Reference Range Interpretation Comments Vitamin D, 12.0 ng/mL 30.0-100.0 L Vitamin D defic iency has 25-Hydroxy (test been define d by the code = 05474-6) [place] [employer] and an Endocrine So ciety practice guidel ine as alevel of serum 25-OH vitamin D less than 20 ng/mL (1,2).The Endocrine Society went on to further define vitamin Dinsufficiency as a level between 21 and 29 ng/mL (2).1. IOM (Ins titute of Medicine). 2010 . Dietary reference int akes for calcium and D. [place]: [employer] .2. Dileep MF, Ela NC, Stephane blake EMERSON, et al. Evaluatio n, treatment, and prevention of vitamin D deficiency: an Endocrine Society clinica l practice guideline. EM. 2010; 96(7):1911-30.< br/>
P erformed by:
[facility] ([place])

[facility] Description: 25-hydroxyvitamin D3 [Mass/volume] in Serum or [id number] 04:26:00 Test Item Value Reference Range Interpretation Comments Vitamin D, 12.0 ng/mL 30.0-100.0 L Vitamin D defic iency has 25-Hydroxy (test been define d by the code = 21815-7) [place] [employer] and an Endocrine [facility] guidel ine as alevel of serum 25-OH vitamin D less than 20 ng/mL (1,2).The Endocrine Society went on to further define vitamin Dinsufficiency as a level between 21 and 29 ng/mL (2).1. IOM (Ins titute of Medicine). 2010 . Dietary reference int akes for calcium and D. [place]: [employer] .2. Dileep MF, Ela SANTA, Stephane blake EMERSON, et al. Evaluatio n, treatment, and prevention of vitamin D deficiency: an Endocrine Society clinica l practice guideline. EM. 2010; 96(7):1911-30.< br/>
P erformed by:
[facility] ([place])

[facility] Description: 25-hydroxyvitamin D3 [Mass/volume] in Serum or [id number] 04:26:00 Test Item Value Reference Range Interpretation Comments Vitamin D, 12.0 ng/mL 30.0-100.0 L Vitamin D defic iency has 25-Hydroxy (test been define d by the code = 41321-4) [place] [employer] and an Endocrine So [facility] guidel ine as alevel of serum 25-OH vitamin D less than 20 ng/mL (1,2).The Endocrine Society went on to further define vitamin Dinsufficiency as a level between 21 and 29 ng/mL (2).1. IOM (Ins titute of Medicine). 2010 . Dietary reference int akes for calcium and D. [place]: [employer] .2. Ela Oliveros, Stephane EMERSON, et al. Evaluatio n, treatment, and prevention of vitamin D deficiency: an Endocrine Society clinica l practice guideline. EM. 2010; 96(7):1911-30.< br/>
P erformed by:
[facility] ([place])

[facility] Description: 25-hydroxyvitamin D3 [Mass/volume] in Serum or [id number] 04:26:00 Test Item Value Reference Range Interpretation Comments Vitamin D, 12.0 ng/mL 30.0-100.0 L Vitamin D defic iency has 25-Hydroxy (test been define d by the code = 21045-8) [place] [employer] and an Endocrine [facility] guidel ine as alevel of serum 25-OH vitamin D less than 20 ng/mL (1,2).The Endocrine Society went on to further define vitamin Dinsufficiency as a level between 21 and 29 ng/mL (2).1. IOM (Ins titute of Medicine). 2010 . Dietary reference int akes for calcium and D. [facility]: [employer] .2. Dileep AREVALO, Ela SANTA, Stephane EMERSON, et al. Evaluatio n, treatment, and prevention of vitamin D deficiency: an Endocrine Society clinica l practice guideline. EM. 2010; 96(7):1911-30.< br/>
P erformed by:
[facility] ([place])

[facility] Description: 25-hydroxyvitamin D3 [Mass/volume] in Serum or [id number] 04:26:00 Test Item Value Reference Range Interpretation Comments Vitamin D, 12.0 ng/mL 30.0-100.0 L Vitamin D defic iency has 25-Hydroxy (test been define d by the code = 06604-0) [place] [employer] and an Endocrine So [facility] guidel ine as alevel of serum 25-OH vitamin D less than 20 ng/mL (1,2).The Endocrine Society went on to further define vitamin Dinsufficiency as a level between 21 and 29 ng/mL (2).1. IOM (Ins titute of Medicine). 2010 . Dietary reference int akes for calcium and D. [facility]: [employer] .2. Ela Oliveros, Stephane EMERSON, et al. Evaluatio n, treatment, and prevention of vitamin D deficiency: an Endocrine Society clinica l practice guideline. EM. 2010; 96(7):1911-30.< br/>
P erformed by:
[facility] ([place])

[facility] Description: 25-hydroxyvitamin D3 [Mass/volume] in Serum or [id number] 04:26:00 Test Item Value Reference Range Interpretation Comments Vitamin D, 12.0 ng/mL 30.0-100.0 L Vitamin D defic iency has 25-Hydroxy (test been define d by the code = 02721-6) [place] [employer] and an Endocrine So [facility] guidel ine as alevel of serum 25-OH vitamin D less than 20 ng/mL (1,2).The Endocrine Society went on to further define vitamin Dinsufficiency as a level between 21 and 29 ng/mL (2).1. IOM (Ins titute of Medicine). 2010 . Dietary reference int akes for calcium and D. [facility]: [employer] .2. Ela Oliveros, Stephane EMERSON, et al. Evaluatio n, treatment, and prevention of vitamin D deficiency: an Endocrine Society clinica l practice guideline. EM. 2010; 96(7):1911-30.< br/>
P erformed by:
[facility] ([place])

[facility] Description: 25-hydroxyvitamin D3 [Mass/volume] in Serum or [id number] 04:26:00 Test Item Value Reference Range Interpretation Comments Vitamin D, 12.0 ng/mL 30.0-100.0 L Vitamin D defic iency has 25-Hydroxy (test been define d by the code = 44157-2) [place] [employer] and an [facility] guidel ine as alevel of serum 25-OH vitamin D less than 20 ng/mL (1,2).The Endocrine Society went on to further define vitamin Dinsufficiency as a level between 21 and 29 ng/mL (2).1. IOM (Ins titute of Medicine). 2010 . Dietary reference int akes for calcium and D. [facility]: [employer] .2. Ela Oliveros, Stephane EMERSON, et al. Evaluatio n, treatment, and prevention of vitamin D deficiency: an Endocrine Society clinica l practice guideline. [place] EM. 2010; 96(7):1911-30.< br/>
P erformed by:
[facility] ([place])

[facility] Description: 25-hydroxyvitamin D3 [Mass/volume] in Serum or [id number] 04:26:00 Test Item Value Reference Range Interpretation Comments Vitamin D, 12.0 ng/mL 30.0-100.0 L Vitamin D defic iency has 25-Hydroxy (test been define d by the code = 84494-5) [place] [employer] and an Endocrine So [facility] guidel ine as alevel of serum 25-OH vitamin D less than 20 ng/mL (1,2).The Endocrine Society went on to further define vitamin Dinsufficiency as a level between 21 and 29 ng/mL (2).1. IOM (Ins titute of Medicine). 2010 . Dietary reference int akes for calcium and D. [facility]: [employer] .2. Ela Oliveros, Stephane EMERSON, et al. Evaluatio n, treatment, and prevention of vitamin D deficiency: an Endocrine Society clinica l practice guideline. [place] EM. 2010; 96(7):1911-30.< br/>
P erformed by:
[facility] ([place])

[facility] Description: 25-hydroxyvitamin D3 [Mass/volume] in Serum or [id number] 04:26:00 Test Item Value Reference Range Interpretation Comments Vitamin D, 12.0 ng/mL 30.0-100.0 L Vitamin D defic iency has 25-Hydroxy (test been define d by the code = 46435-5) [place] [employer] and an Endocrine So ciety practice guidel ine as alevel of serum 25-OH vitamin D less than 20 ng/mL (1,2).The Endocrine Society went on to further define vitamin Dinsufficiency as a level between 21 and 29 ng/mL (2).1. IOM (Ins titute of Medicine). 2010 . Dietary reference int akes for calcium and D. [facility]: [employer] .2. Ela Oliveros, Stephane EMERSON, et al. Evaluatio n, treatment, and prevention of vitamin D deficiency: an Endocrine Society clinica l practice guideline. EM. 2010; 96(7):191-.< br/>
P erformed by:
[facility] [employer] ([place])

[facility] [employer] [facility] Description: 25-hydroxyvitamin D3 [Mass/volume] in Serum or [id number] 04:26:00 Test Item Value Reference Range Interpretation Comments Vitamin D, 12.0 ng/mL 30.0-100.0 L Vitamin D defic iency has 25-Hydroxy (test been define d by the code = 70300-9) [place] [employer] and an Endocrine [facility] guidel ine as alevel of serum 25-OH vitamin D less than 20 ng/mL (1,2).The Endocrine Society went on to further define vitamin Dinsufficiency as a level between 21 and 29 ng/mL (2).1. IOM (Ins titute of Medicine). 2010 . Dietary reference int akes for calcium and D. [facility]: [employer] .2. Ela Oliveros, Stephane EMERSON, et al. Evaluatio n, treatment, and prevention of vitamin D deficiency: an Endocrine Society clinica l practice guideline. EM. 2010; 96(7):191-.< br/>
P erformed by:
[facility] ([place])

[facility] [employer] Description: 25-hydroxyvitamin D3 [Mass/volume] in Serum or [id number] 04:26:00 Test Item Value Reference Range Interpretation Comments Vitamin D, 12.0 ng/mL 30.0-100.0 L Vitamin D defic iency has 25-Hydroxy (test been define d by the code = 35130-8) [place] [employer] and an Endocrine So ciety practice guidel ine as alevel of serum 25-OH vitamin D less than 20 ng/mL (1,2).The Endocrine Society went on to further define vitamin Dinsufficiency as a level between 21 and 29 ng/mL (2).1. IOM (Ins titute of Medicine). 2010 . Dietary reference int akes for calcium and D. [place]: [employer] .2. Dileep MF, Ela SANTA, Stephane blake EMERSON, et al. Evaluatio n, treatment, and prevention of vitamin D deficiency: an Endocrine Society clinica l practice guideline. [place] EM. 2010; 96(1):1911-30.< br/>
P erformed by:
[facility] ()

[facility] Description: CBC With Differential/Pfevtbqg4290-19-02 04:00:00 Test Item Value Reference Range Interpretation [...] (test 1 % Not Estab. code = 58347-5) Immature Grans (Abs) (test code 0.0 x10E3/uL 0.0-0.1 = 28837-3) NRBC (test code = 36749-7) Hematology Comments: (test code = 68652-4) [facility] Description: CBC With Differential/Drgyxgnu8990-03-50 04:00:00 Test Item Value Reference Range Interpretation [...] (test 1 % Not Estab. code = 36829-8) Immature Grans (Abs) (test code 0.0 x10E3/uL 0.0-0.1 = 29276-9) NRBC (test code = 76192-8) Hematology Comments: (test code = 49844-4) [facility] Description: CBC With Differential/[id number] 04:00:00 Test Item Value Reference Range Interpretation [...] (test 1 % Not Estab. code = 57683-4) Immature Grans (Abs) (test code 0.0 x10E3/uL 0.0-0.1 = 83384-4) NRBC (test code = 40758-0) Hematology Comments: (test code = 84951-3) [facility] Description: CBC With Differential/Rubevjfi9162-33-38 04:00:00 Test Item Value Reference Range Interpretation [...] (test 1 % Not Estab. code = 68672-2) Immature Grans (Abs) (test code 0.0 x10E3/uL 0.0-0.1 = 83029-2) NRBC (test code = 17245-5) Hematology Comments: (test code = 05909-8) [facility] Description: CBC With Differential/Npypzvgt9843-04-46 04:00:00 Test Item Value Reference Range Interpretation [...] (test 1 % Not Estab. code = 63830-3) Immature Grans (Abs) (test code 0.0 x10E3/uL 0.0-0.1 = 64714-7) NRBC (test code = 74213-3) Hematology Comments: (test code = 92031-9) [facility] Description: CBC With Differential/Qewokqsi7606-94-25 04:00:00 Test Item Value Reference Range Interpretation [...] (test 1 % Not Estab. code = 44224-7) Immature Grans (Abs) (test code 0.0 x10E3/uL 0.0-0.1 = 15022-9) NRBC (test code = 68282-0) Hematology Comments: (test code = 50603-3) [facility] Description: CBC With Differential/Smuttfvk9788-42-19 04:00:00 Test Item Value Reference Range Interpretation [...] (test 1 % Not Estab. code = 40547-0) Immature Grans (Abs) (test code 0.0 x10E3/uL 0.0-0.1 = 77881-1) NRBC (test code = 31360-9) Hematology Comments: (test code = 22683-3) [facility] Description: CBC With Differential/Uivdiocr0682-63-25 04:00:00 Test Item Value Reference Range Interpretation [...] (test 1 % Not Estab. code = 23593-1) Immature Grans (Abs) (test code 0.0 x10E3/uL 0.0-0.1 = 16541-8) NRBC (test code = 82322-8) Hematology Comments: (test code = 82383-0) [facility] Description: CBC With Differential/Wmyfjutw9878-25-69 04:00:00 Test Item Value Reference Range Interpretation [...] (test 1 % Not Estab. code = 51076-9) Immature Grans (Abs) (test code 0.0 x10E3/uL 0.0-0.1 = 65230-4) NRBC (test code = 66651-2) Hematology Comments: (test code = 48980-9) [facility] Description: CBC With Differential/Azhinzjl1948-38-71 04:00:00 Test Item Value Reference Range Interpretation [...] (test 1 % Not Estab. code = 36039-1) Immature Grans (Abs) (test code 0.0 x10E3/uL 0.0-0.1 = 13470-4) NRBC (test code = 57098-3) Hematology Comments: (test code = 16214-9) [facility] Description: CBC With Differential/Rgehnhfs1341-42-02 04:00:00 Test Item Value Reference Range Interpretation [...] (test 1 % Not Estab. code = 28168-4) Immature Grans (Abs) (test code 0.0 x10E3/uL 0.0-0.1 = 80306-1) NRBC (test code = 37835-6) Hematology Comments: (test code = 35455-6) [facility] Description: Magnesium [Mass/volume] in Serum or Plasma 2020-10-30 02:31:00 Test Item Value Reference Range Interpretation Comments Magnesium (test code = 41769-5) 1.6 mg/dL 1.6-2.3 [facility] Description: Magnesium [Mass/volume] in Serum or Plasma 2020-10-30 02:31:00 Test Item Value Reference Range Interpretation Comments Magnesium (test code = 70175-4) 1.6 mg/dL 1.6-2.3 [facility] Description: Magnesium [Mass/volume] in Serum or Plasma 2020-10-30 02:31:00 Test Item Value Reference Range Interpretation Comments Magnesium (test code = 68756-4) 1.6 mg/dL 1.6-2.3 [facility] Description: Magnesium [Mass/volume] in Serum or Plasma 2020-10-30 02:31:00 Test Item Value Reference Range Interpretation Comments Magnesium (test code = 07727-7) 1.6 mg/dL 1.6-2.3 [facility] Description: Magnesium [Mass/volume] in Serum or Plasma 2020-10-30 02:31:00 Test Item Value Reference Range Interpretation Comments Magnesium (test code = 36520-6) 1.6 mg/dL 1.6-2.3 [facility] Description: Magnesium [Mass/volume] in Serum or Plasma 2020-10-30 02:31:00 Test Item Value Reference Range Interpretation Comments Magnesium (test code = 07765-2) 1.6 mg/dL 1.6-2.3 [facility] Description: Magnesium [Mass/volume] in Serum or Plasma 2020-10-30 02:31:00 Test Item Value Reference Range Interpretation Comments Magnesium (test code = 57688-2) 1.6 mg/dL 1.6-2.3 [facility] Description: Magnesium [Mass/volume] in Serum or Plasma 2020-10-30 02:31:00 Test Item Value Reference Range Interpretation Comments Magnesium (test code = 83545-5) 1.6 mg/dL 1.6-2.3 [facility] Description: Magnesium [Mass/volume] in Serum or Plasma 2020-10-30 02:31:00 Test Item Value Reference Range Interpretation Comments Magnesium (test code = 71066-9) 1.6 mg/dL 1.6-2.3 [facility] Description: Magnesium [Mass/volume] in Serum or Plasma 2020-10-30 02:31:00 Test Item Value Reference Range Interpretation Comments Magnesium (test code = 99140-4) 1.6 mg/dL 1.6-2.3 [facility] Description: Magnesium [Mass/volume] in Serum or Plasma 2020-10-30 02:31:00 Test Item Value Reference Range Interpretation Comments Magnesium (test code = 18190-4) 1.6 mg/dL 1.6-2.3 [employer] Description: Lipid [id number] 02:17:00 Test Item Value Reference Range Interpretation Comments Cholesterol, Total (test code = 167 mg/dL 485-756 4765-3) Triglycerides (test code = 2571-8) 60 mg/dL 0-149 HDL Cholesterol (test code = 33 mg/dL >39 L 5-9) VLDL Cholesterol Renuka (test code = 12 mg/dL 5-40 88584-8) LDL Chol Calc (NIH) (test code = 122 mg/dL 0-99 H 73553-7) Comment: (test code = 87598-9) [employer] Description: Lipid [id number] 02:17:00 Test Item Value Reference Range Interpretation Comments Cholesterol, Total (test code = 167 mg/dL 819-095 9312-3) Triglycerides (test code = 2571-8) 60 mg/dL 0-149 HDL Cholesterol (test code = 33 mg/dL >39 L 5-9) VLDL Cholesterol Renuka (test code = 12 mg/dL 5-40 28660-5) LDL Chol Calc (NIH) (test code = 122 mg/dL 0-99 H 06742-3) Comment: (test code = 47282-4) [employer] Description: Lipid [id number] 02:17:00 Test Item Value Reference Range Interpretation Comments Cholesterol, Total (test code = 167 mg/dL 791-122 6484-3) Triglycerides (test code = 2571-8) 60 mg/dL 0-149 HDL Cholesterol (test code = 33 mg/dL >39 L 5-9) VLDL Cholesterol Renuka (test code = 12 mg/dL 5-40 35232-6) LDL Chol Calc (NIH) (test code = 122 mg/dL 0-99 H 20137-2) Comment: (test code = 33366-3) [employer] Description: Lipid [id number] 02:17:00 Test Item Value Reference Range Interpretation Comments Cholesterol, Total (test code = 167 mg/dL 741-580 3169-3) Triglycerides (test code = 2571-8) 60 mg/dL 0-149 HDL Cholesterol (test code = 33 mg/dL >39 L 5-9) VLDL Cholesterol Renuka (test code = 12 mg/dL 5-40 02134-7) LDL Chol Calc (NIH) (test code = 122 mg/dL 0-99 H 42534-7) Comment: (test code = 73595-3) [employer] Description: Lipid [id number] 02:17:00 Test Item Value Reference Range Interpretation Comments Cholesterol, Total (test code = 167 mg/dL 649-234 7726-3) Triglycerides (test code = 2571-8) 60 mg/dL 0-149 HDL Cholesterol (test code = 33 mg/dL >39 L 2085-9) VLDL Cholesterol Renuka (test code = 12 mg/dL 5-40 06880-3) LDL Chol Calc (NIH) (test code = 122 mg/dL 0-99 H 22868-8) Comment: (test code = 69138-9) [employer] Description: Lipid [id number] 02:17:00 Test Item Value Reference Range Interpretation Comments Cholesterol, Total (test code = 167 mg/dL 245-357 4867-3) Triglycerides (test code = 2571-8) 60 mg/dL 0-149 HDL Cholesterol (test code = 33 mg/dL >39 L 2085-9) VLDL Cholesterol Renuka (test code = 12 mg/dL 5-40 59976-9) LDL Chol Calc (NIH) (test code = 122 mg/dL 0-99 H 40511-2) Comment: (test code = 21423-2) [employer] Description: Lipid [id number] 02:17:00 Test Item Value Reference Range Interpretation Comments Cholesterol, Total (test code = 167 mg/dL 216-410 2312-3) Triglycerides (test code = 2571-8) 60 mg/dL 0-149 HDL Cholesterol (test code = 33 mg/dL >39 L 2085-9) VLDL Cholesterol Renuka (test code = 12 mg/dL 5-40 03118-8) LDL Chol Calc (NIH) (test code = 122 mg/dL 0-99 H 45827-6) Comment: (test code = 55660-4) [employer] Description: Lipid [id number] 02:17:00 Test Item Value Reference Range Interpretation Comments Cholesterol, Total (test code = 167 mg/dL 729-776 3255-3) Triglycerides (test code = 2571-8) 60 mg/dL 0-149 HDL Cholesterol (test code = 33 mg/dL >39 L 2085-9) VLDL Cholesterol Renuka (test code = 12 mg/dL 5-40 33929-9) LDL Chol Calc (NIH) (test code = 122 mg/dL 0-99 H 80074-1) Comment: (test code = 37203-4) [employer] Description: Lipid [id number] 02:17:00 Test Item Value Reference Range Interpretation Comments Cholesterol, Total (test code = 167 mg/dL 709-939 4196-3) Triglycerides (test code = 2571-8) 60 mg/dL 0-149 HDL Cholesterol (test code = 33 mg/dL >39 L 5-9) VLDL Cholesterol Renuka (test code = 12 mg/dL 5-40 00654-0) LDL Chol Calc (NIH) (test code = 122 mg/dL 0-99 H 64293-2) Comment: (test code = 11356-2) [employer] Description: Lipid [id number] 02:17:00 Test Item Value Reference Range Interpretation Comments Cholesterol, Total (test code = 167 mg/dL 030-906 6502-3) Triglycerides (test code = 2571-8) 60 mg/dL 0-149 HDL Cholesterol (test code = 33 mg/dL >39 L 5-9) VLDL Cholesterol Renuka (test code = 12 mg/dL 5-40 92629-1) LDL Chol Calc (NIH) (test code = 122 mg/dL 0-99 H 36350-1) Comment: (test code = 44849-2) [employer] Description: Lipid [id number] 02:17:00 Test Item Value Reference Range Interpretation Comments Cholesterol, Total (test code = 167 mg/dL 746-323 1795-3) Triglycerides (test code = 2571-8) 60 mg/dL 0-149 HDL Cholesterol (test code = 33 mg/dL >39 L 5-9) VLDL Cholesterol Renuka (test code = 12 mg/dL 5-40 32213-0) LDL Chol Calc (NIH) (test code = 122 mg/dL 0-99 H 38264-8) Comment: (test code = 26397-1) [employer] Description: Comp. Metabolic Panel (14)2020-10-30 01:58:00 Test Item Value Reference Range Interpretation Comments Glucose (test code 50 mg/dL 65-99 L = 2345-7) BUN (test code = 52 mg/dL 6-24 H 3094-0) Creatinine (test 2.04 mg/dL 0.76-1.27 H code = 2160-0) eGFR If NonAfricn 38 >59 L Am (test code = mL/min/1.73 14858-5) eGFR If Africn Am 44 >59 L [facility] currently (test code = mL/min/1.73 [place] [address]00-6) compliance with the current recommendations of the National Kidney Foundation. [place] will update re porting as new guidelin es are published from the NKF-ASN Task force.
<br/ >Perfor med by:
Lab [place] ([place])

BUN/Creatinine 25 9-20 H Ratio (test code = 3097-3) Sodium (test code = 142 mmol/L 474-193 1583-2) Potassium (test 4.1 mmol/L 3.5-5.2 code = 2823-3) Chloride (test code 103 mmol/L 96-106 = 2075-0) Carbon Dioxide, 27 mmol/L 20-29 Total (test code = 2027-) Calcium (test code 8.8 mg/dL 8.7-10.2 = 56646-1) Protein, Total 6.8 g/dL 6.0-8.5 (test code = 2885-2) Albumin (test code 3.3 g/dL 4.0-5.0 L = 1751-7) Globulin, Total 3.5 g/dL 1.5-4.5 (test code = 11880-6) A/G Ratio (test 0.9 1.2-2.2 L code = 1759-0) Bilirubin, Total 0.7 mg/dL 0.0-1.2 (test code = 1975-2) Alkaline 140 IU/L 48-121 H Phosphatase (test code = 6768-6) AST (SGOT) (test 14 IU/L 0-40 code = 1920-8) ALT (SGPT) (test 21 IU/L 0-44 code = 1742-6) [facility] Description: Comp. Metabolic Panel (14)2020-10-30 01:58:00 Test Item Value Reference Range Interpretation Comments Glucose (test code 50 mg/dL 65-99 L = 2345-7) BUN (test code = 52 mg/dL 6-24 H 3094-0) Creatinine (test 2.04 mg/dL 0.76-1.27 H code = 2160-0) eGFR If NonAfricn 38 >59 L Am (test code = mL/min/1.73 01770-8) eGFR If Africn Am 44 >59 L [facility] currently (test code = mL/min/1.73 [place] [address]-3) compliance with the current recommendations of the National Kidney Foundation. [place] will update re porting as new guidelin es are published from the NKF-ASN Task force.
<br/ >Perfor med by:
Lab [place] ([place])

BUN/Creatinine 25 9-20 H Ratio (test code = 3097-3) Sodium (test code = 142 mmol/L 722-671 9673-2) Potassium (test 4.1 mmol/L 3.5-5.2 code = 2823-3) Chloride (test code 103 mmol/L 96-106 = 2075-0) Carbon Dioxide, 27 mmol/L 20-29 Total (test code = 2027-) Calcium (test code 8.8 mg/dL 8.7-10.2 = 99265-9) Protein, Total 6.8 g/dL 6.0-8.5 (test code = 2885-2) Albumin (test code 3.3 g/dL 4.0-5.0 L = 1751-7) Globulin, Total 3.5 g/dL 1.5-4.5 (test code = 23292-9) A/G Ratio (test 0.9 1.2-2.2 L code = 1759-0) Bilirubin, Total 0.7 mg/dL 0.0-1.2 (test code = 1975-2) Alkaline 140 IU/L 48-121 H Phosphatase (test code = 6768-6) AST (SGOT) (test 14 IU/L 0-40 code = 1920-8) ALT (SGPT) (test 21 IU/L 0-44 code = 1742-6) [facility] Description: Comp. Metabolic Panel (14)2020-10-30 01:58:00 Test Item Value Reference Range Interpretation Comments Glucose (test code 50 mg/dL 65-99 L = 2345-7) BUN (test code = 52 mg/dL 6-24 H 3094-0) Creatinine (test 2.04 mg/dL 0.76-1.27 H code = 2160-0) eGFR If NonAfricn 38 >59 L Am (test code = mL/min/1.73 02770-9) eGFR If Africn Am 44 >59 L [facility] currently (test code = mL/min/1.73 [place] [address]-1) compliance with the current recommendations of the National Kidney Foundation. [place] will update re porting as new guidelin es are published from the NKF-ASN Task force.
<br/ >Perfor med by:
Lab [place] ([place])

BUN/Creatinine 25 9-20 H Ratio (test code = 3097-3) Sodium (test code = 142 mmol/L 679-253 3984-2) Potassium (test 4.1 mmol/L 3.5-5.2 code = 2823-3) Chloride (test code 103 mmol/L 96-106 = 2075-0) Carbon Dioxide, 27 mmol/L 20-29 Total (test code = 2027-) Calcium (test code 8.8 mg/dL 8.7-10.2 = 45477-5) Protein, Total 6.8 g/dL 6.0-8.5 (test code = 2885-2) Albumin (test code 3.3 g/dL 4.0-5.0 L = 1751-7) Globulin, Total 3.5 g/dL 1.5-4.5 (test code = 56944-4) A/G Ratio (test 0.9 1.2-2.2 L code = 1759-0) Bilirubin, Total 0.7 mg/dL 0.0-1.2 (test code = 1975-2) Alkaline 140 IU/L 48-121 H Phosphatase (test code = 6768-6) AST (SGOT) (test 14 IU/L 0-40 code = 1920-8) ALT (SGPT) (test 21 IU/L 0-44 code = 1742-6) [facility] Description: Comp. Metabolic Panel (14)2020-10-30 01:58:00 Test Item Value Reference Range Interpretation Comments Glucose (test code 50 mg/dL 65-99 L = 2345-7) BUN (test code = 52 mg/dL 6-24 H 3094-0) Creatinine (test 2.04 mg/dL 0.76-1.27 H code = 2160-0) eGFR If NonAfricn 38 >59 L Am (test code = mL/min/1.73 02320-7) eGFR If Africn Am 44 >59 L [facility] currently (test code = mL/min/1.73 [place] [address]-2) compliance with the current recommendations of the National Kidney Foundation. [place] will update re porting as new guidelin es are published from the NKF-ASN Task force.
<br/ >Perfor med by:
Lab [place] (HD)

BUN/Creatinine 25 9-20 H Ratio (test code = 3097-3) Sodium (test code = 142 mmol/L 353-205 6475-2) Potassium (test 4.1 mmol/L 3.5-5.2 code = 2823-3) Chloride (test code 103 mmol/L 96-106 = 2075-0) Carbon Dioxide, 27 mmol/L 20-29 Total (test code = 2027-) Calcium (test code 8.8 mg/dL 8.7-10.2 = 54297-5) Protein, Total 6.8 g/dL 6.0-8.5 (test code = 2885-2) Albumin (test code 3.3 g/dL 4.0-5.0 L = 1751-7) Globulin, Total 3.5 g/dL 1.5-4.5 (test code = 70741-3) A/G Ratio (test 0.9 1.2-2.2 L code = 1759-0) Bilirubin, Total 0.7 mg/dL 0.0-1.2 (test code = 1974-2) Alkaline 140 IU/L 48-121 H Phosphatase (test code = 6768-6) AST (SGOT) (test 14 IU/L 0-40 code = 1920-8) ALT (SGPT) (test 21 IU/L 0-44 code = 1742-6) [facility] Description: Comp. Metabolic Panel (14)2020-10-30 01:58:00 Test Item Value Reference Range Interpretation Comments Glucose (test code 50 mg/dL 65-99 L = 2345-7) BUN (test code = 52 mg/dL 6-24 H 3094-0) Creatinine (test 2.04 mg/dL 0.76-1.27 H code = 2160-0) eGFR If NonAfricn 38 >59 L Am (test code = mL/min/1.73 32474-8) eGFR If Africn Am 44 >59 L [facility] currently (test code = mL/min/1[place]73 [place] [address]-9) compliance with the current recommendations of the National Kidney Foundation. [place] will update re porting as new guidelin es are published from the NKF-ASN Task force.
<br/ >Perfor med by:
Lab [place] ([place])

BUN/Creatinine 25 9-20 H Ratio (test code = 3097-3) Sodium (test code = 142 mmol/L 026-899 6084-2) Potassium (test 4.1 mmol/L 3.5-5.2 code = 2823-3) Chloride (test code 103 mmol/L 96-106 = 5-0) Carbon Dioxide, 27 mmol/L 20-29 Total (test code = 2027-) Calcium (test code 8.8 mg/dL 8.7-10.2 = 16370-9) Protein, Total 6.8 g/dL 6.0-8.5 (test code = 2885-2) Albumin (test code 3.3 g/dL 4.0-5.0 L = 1751-7) Globulin, Total 3.5 g/dL 1.5-4.5 (test code = 14567-8) A/G Ratio (test 0.9 1.2-2.2 L code = 1759-0) Bilirubin, Total 0.7 mg/dL 0.0-1.2 (test code = 1975-2) Alkaline 140 IU/L 48-121 H Phosphatase (test code = 6768-6) AST (SGOT) (test 14 IU/L 0-40 code = 1920-8) ALT (SGPT) (test 21 IU/L 0-44 code = 1742-6) [facility] Description: Comp. Metabolic Panel (14)2020-10-30 01:58:00 Test Item Value Reference Range Interpretation Comments Glucose (test code 50 mg/dL 65-99 L = 2345-7) BUN (test code = 52 mg/dL 6-24 H 3094-0) Creatinine (test 2.04 mg/dL 0.76-1.27 H code = 2160-0) eGFR If NonAfricn 38 >59 L Am (test code = mL/min/1.73 57276-9) eGFR If Africn Am 44 >59 L [facility] currently (test code = mL/min/1.73 [place] [address]-1) compliance with the current recommendations of the National Kidney Foundation. [place] will update re porting as new guidelin es are published from the NKF-ASN Task force.
<br/ >Perfor med by:
Lab [place] ([place])

BUN/Creatinine 25 9-20 H Ratio (test code = 3097-3) Sodium (test code = 142 mmol/L 961-849 8017-2) Potassium (test 4.1 mmol/L 3.5-5.2 code = 2823-3) Chloride (test code 103 mmol/L 96-106 = 5-0) Carbon Dioxide, 27 mmol/L 20-29 Total (test code = 2027-9) Calcium (test code 8.8 mg/dL 8.7-10.2 = 44461-2) Protein, Total 6.8 g/dL 6.0-8.5 (test code = 2885-2) Albumin (test code 3.3 g/dL 4.0-5.0 L = 1751-7) Globulin, Total 3.5 g/dL 1.5-4.5 (test code = 13090-0) A/G Ratio (test 0.9 1.2-2.2 L code = 1759-0) Bilirubin, Total 0.7 mg/dL 0.0-1.2 (test code = 1975-2) Alkaline 140 IU/L 48-121 H Phosphatase (test code = 6768-6) AST (SGOT) (test 14 IU/L 0-40 code = 1920-8) ALT (SGPT) (test 21 IU/L 0-44 code = 1742-6) [facility] Description: Comp. Metabolic Panel (14)2020-10-30 01:58:00 Test Item Value Reference Range Interpretation Comments Glucose (test code 50 mg/dL 65-99 L = 2345-7) BUN (test code = 52 mg/dL 6-24 H 3094-0) Creatinine (test 2.04 mg/dL 0.76-1.27 H code = 2160-0) eGFR If NonAfricn 38 >59 L Am (test code = mL/min/1.73 37142-4) eGFR If Africn Am 44 >59 L [facility] currently (test code = mL/min/1.73 [place] [address]-6) compliance with the current recommendations of the National Kidney Foundation. [place] will update re porting as new guidelin es are published from the NKF-ASN Task force.
<br/ >Perfor med by:
Lab [place] ([place])

BUN/Creatinine 25 9-20 H Ratio (test code = 3097-3) Sodium (test code = 142 mmol/L 356-725 5605-2) Potassium (test 4.1 mmol/L 3.5-5.2 code = 2823-3) Chloride (test code 103 mmol/L 96-106 = 2075-0) Carbon Dioxide, 27 mmol/L 20-29 Total (test code = 2027-) Calcium (test code 8.8 mg/dL 8.7-10.2 = 81126-0) Protein, Total 6.8 g/dL 6.0-8.5 (test code = 2885-2) Albumin (test code 3.3 g/dL 4.0-5.0 L = 1751-7) Globulin, Total 3.5 g/dL 1.5-4.5 (test code = 45471-1) A/G Ratio (test 0.9 1.2-2.2 L code = 1759-0) Bilirubin, Total 0.7 mg/dL 0.0-1.2 (test code = 1975-2) Alkaline 140 IU/L 48-121 H Phosphatase (test code = 6768-6) AST (SGOT) (test 14 IU/L 0-40 code = 1920-8) ALT (SGPT) (test 21 IU/L 0-44 code = 1742-6) [facility] Description: Comp. Metabolic Panel (14)2020-10-30 01:58:00 Test Item Value Reference Range Interpretation Comments Glucose (test code 50 mg/dL 65-99 L = 2345-7) BUN (test code = 52 mg/dL 6-24 H 3094-0) Creatinine (test 2.04 mg/dL 0.76-1.27 H code = 2160-0) eGFR If NonAfricn 38 >59 L Am (test code = mL/min/1.73 96529-5) eGFR If Africn Am 44 >59 L [facility] currently (test code = mL/min/1.73 [place] [address]-7) compliance with the current recommendations of the National Kidney Foundation. [place] will update re porting as new guidelin es are published from the NKF-ASN Task force.
<br/ >Perfor med by:
Lab [place] ([place])

BUN/Creatinine 25 9-20 H Ratio (test code = 3097-3) Sodium (test code = 142 mmol/L 856-812 2607-2) Potassium (test 4.1 mmol/L 3.5-5.2 code = 2823-3) Chloride (test code 103 mmol/L 96-106 = 2075-0) Carbon Dioxide, 27 mmol/L 20-29 Total (test code = 2027-) Calcium (test code 8.8 mg/dL 8.7-10.2 = 92706-2) Protein, Total 6.8 g/dL 6.0-8.5 (test code = 2885-2) Albumin (test code 3.3 g/dL 4.0-5.0 L = 1751-7) Globulin, Total 3.5 g/dL 1.5-4.5 (test code = 37682-7) A/G Ratio (test 0.9 1.2-2.2 L code = 1759-0) Bilirubin, Total 0.7 mg/dL 0.0-1.2 (test code = 1975-2) Alkaline 140 IU/L 48-121 H Phosphatase (test code = 6768-6) AST (SGOT) (test 14 IU/L 0-40 code = 1920-8) ALT (SGPT) (test 21 IU/L 0-44 code = 1742-6) [facility] Description: Comp. Metabolic Panel (14)2020-10-30 01:58:00 Test Item Value Reference Range Interpretation Comments Glucose (test code 50 mg/dL 65-99 L = 2345-7) BUN (test code = 52 mg/dL 6-24 H 3094-0) Creatinine (test 2.04 mg/dL 0.76-1.27 H code = 2160-0) eGFR If NonAfricn 38 >59 L Am (test code = mL/min/1.73 39188-1) eGFR If Africn Am 44 >59 L [facility] currently (test code = mL/min/1.73 [place] [address]-7) compliance with the current recommendations of the National Kidney Foundation. [place] will update re porting as new guidelin es are published from the NKF-ASN Task force.
<br/ >Perfor med by:
Lab [place] ([place])

BUN/Creatinine 25 9-20 H Ratio (test code = 3097-3) Sodium (test code = 142 mmol/L 556-323 3724-2) Potassium (test 4.1 mmol/L 3.5-5.2 code = 2823-3) Chloride (test code 103 mmol/L 96-106 = 2075-0) Carbon Dioxide, 27 mmol/L 20-29 Total (test code = 2027-) Calcium (test code 8.8 mg/dL 8.7-10.2 = 10475-1) Protein, Total 6.8 g/dL 6.0-8.5 (test code = 2885-2) Albumin (test code 3.3 g/dL 4.0-5.0 L = 1751-7) Globulin, Total 3.5 g/dL 1.5-4.5 (test code = 21725-1) A/G Ratio (test 0.9 1.2-2.2 L code = 1759-0) Bilirubin, Total 0.7 mg/dL 0.0-1.2 (test code = 1975-2) Alkaline 140 IU/L 48-121 H Phosphatase (test code = 6768-6) AST (SGOT) (test 14 IU/L 0-40 code = 1920-8) ALT (SGPT) (test 21 IU/L 0-44 code = 1742-6) [facility] Description: Comp. Metabolic Panel (14)2020-10-30 01:58:00 Test Item Value Reference Range Interpretation Comments Glucose (test code 50 mg/dL 65-99 L = 2345-7) BUN (test code = 52 mg/dL 6-24 H 3094-0) Creatinine (test 2.04 mg/dL 0.76-1.27 H code = 2160-0) eGFR If NonAfricn 38 >59 L Am (test code = mL/min/1.73 54653-2) eGFR If Africn Am 44 >59 L [facility] currently (test code = mL/min/1.73 [place] [address]-6) compliance with the current recommendations of the National Kidney Foundation. [place] will update re porting as new guidelin es are published from the NKF-ASN Task force.
<br/ >Perfor med by:
Lab [place] ([place])

BUN/Creatinine 25 9-20 H Ratio (test code = 3097-3) Sodium (test code = 142 mmol/L 678-997 1483-2) Potassium (test 4.1 mmol/L 3.5-5.2 code = 2823-3) Chloride (test code 103 mmol/L 96-106 = 2075-0) Carbon Dioxide, 27 mmol/L 20-29 Total (test code = 2027-) Calcium (test code 8.8 mg/dL 8.7-10.2 = 76702-6) Protein, Total 6.8 g/dL 6.0-8.5 (test code = 2885-2) Albumin (test code 3.3 g/dL 4.0-5.0 L = 1751-7) Globulin, Total 3.5 g/dL 1.5-4.5 (test code = 50092-9) A/G Ratio (test 0.9 1.2-2.2 L code = 1759-0) Bilirubin, Total 0.7 mg/dL 0.0-1.2 (test code = 1975-2) Alkaline 140 IU/L 48-121 H Phosphatase (test code = 6768-6) AST (SGOT) (test 14 IU/L 0-40 code = 1920-8) ALT (SGPT) (test 21 IU/L 0-44 code = 1742-6) [facility] Description: Comp. Metabolic Panel (14)2020-10-30 01:58:00 Test Item Value Reference Range Interpretation Comments Glucose (test code 50 mg/dL 65-99 L = 2345-7) BUN (test code = 52 mg/dL 6-24 H 3094-0) Creatinine (test 2.04 mg/dL 0.76-1.27 H code = 2160-0) eGFR If NonAfricn 38 >59 L Am (test code = mL/min/1.73 10453-2) eGFR If Africn Am 44 >59 L [facility] currently (test code = mL/min/1.73 [place] [address]-6) compliance with the current recommendations of the National Kidney Foundation. [place] will update re porting as new guidelin es are published from the NKF-ASN Task force.
<br/ >Perfor med by:
Lab [place] ([place])

BUN/Creatinine 25 9-20 H Ratio (test code = 3097-3) Sodium (test code = 142 mmol/L 316-757 2247-2) Potassium (test 4.1 mmol/L 3.5-5.2 code = 2823-3) Chloride (test code 103 mmol/L 96-106 = 2075-0) Carbon Dioxide, 27 mmol/L 20-29 Total (test code = 2028-9) Calcium (test code 8.8 mg/dL 8.7-10.2 = 06369-9) Protein, Total 6.8 g/dL 6.0-8.5 (test code = 2885-2) Albumin (test code 3.3 g/dL 4.0-5.0 L = 1751-7) Globulin, Total 3.5 g/dL 1.5-4.5 (test code = 11393-8) A/G Ratio (test 0.9 1.2-2.2 L code = 1759-0) Bilirubin, Total 0.7 mg/dL 0.0-1.2 (test code = 1975-2) Alkaline 140 IU/L 48-121 H Phosphatase (test code = 6768-6) AST (SGOT) (test 14 IU/L 0-40 code = 1920-8) ALT (SGPT) (test 21 IU/L 0-44 code = 1742-6) [facility] HAND RIGHT COMPLETE 3 [id number] 11:29:03 [facility]ENTER[facility] RFANDY FORD : 1975 Sex: MRight hand, 3 viewsLocation code: [id number] HISTORY: Pain in second finger of right [...] Sylvester Case MD 10/29/2020 11:29 AM CDT [id number] OBTAINED CULTURE + GRAM [id number] 15:17:00 Test Item Value Reference Interpretation Comments [...] No organisms seen (BEAKER) (test code = 168924) SURGICALLY OBTAINED CULTURE + GRAM [id number] 14:58:00 Test Item Value Reference Interpretation Comments [...] No organisms seen (BEAKER) (test code = 858300) Tissue [id number] 09:25:00 Test Item Value Reference Range Interpretation Comments Case Report (test code Surgical Pathology = 104) Report Case: [id number] Authorizing Provider: Laura Muñiz MD Collected: 09/26/2020 07:56 AM Ordering Location: [address] Med/Surg Received: 09/26/2020 08:55 AM Pathologist: Hilda Mack MD Specimens: A) - Soft Tissue, Debridement, LEFT FOOT BONE CLEAN MARGIN. B) - Bone, LEFT FOOT 5TH METATARSAL HEAD. DIAGNOSIS (test code = [id number] 3220) FuZzEwMzNcZnRuYmpcdWMx IHtccnRmMVxlcGljOTIwMl murxObOHJxpKAuZ4Xfzfbz TLwcGR5mDG9ssFppsYXovP UvYENoYgTgt1rth906cWJx e0ccZIFPzfplxKh0lSkzN3 3kv5H2TdggY40tdFPpNXza bGFpblxmczIwIEEuIEJPTk FzFOzRMcFvGa1GTRUJQMIT CeASQWGYPS1wKYPBQ4HNRU qykUAbFYGqLA5wGk9LXPTD QjVzQjpJAm4DH43KDQJHLV SVOMKQL4MDTIqaHoYQRVAA GfMhDf5JAZGFRNHRAQ7IKQ VPTVlFTElUSVNccGFyXHBh gcCCZzNEY53CJEMYCRHLPN SAQ5LgWFIISN9VECGRVNFB MWrnVVGFWPscZG3PXIGPNN iJXmakbCJwQYNhYC5iNLSM AXPxYY0AGKWTCe2ARYEaR6 NWGF4UFFOIBMXVClWxoZWl jQcfssKbJXeqt0EaWFwcJX WqIP1glZloCERnRY4dPRBd R9rmdL8kagu9BrTiHIZiVn A1ZYEkosB1Hur7UELaNJim i5sah0KzQMUgDAz5iSjdEr WaOMBwv4hqnrGhRgQqURXy KYOdBRDjmNHyR927t5jzr1 ixqoJphLE3AZSrOWT8WNps nfNhwjJ4NWqzbWGuMoV7FM tccmVkMFxncmVlbjBcYmx1 SLPeI058TCQ7kUgcp4jyPX I6DOOzAYGhPhPfJm3nfNJd I125UIUuXSHSEDXxdAt5XX EjizYucfQmeQWKa314A743 y6vpIOPpbiDnmQpFkdqni1 vmX036SPGwpOOdgbIgAzVk NSKuyEWabQK2PQYwJY0irk luDWakJSeaOYQibaN7HYNv nBPnS6YoCESxNW7tuhylEJ W1NIpbPUUsGVK6CpQlHUHp a7Xoqof0EpEzrw7ibm44GV L1d5GkkOpmVRX6VQW3UoIc Ym5uiYNoQJBuQB5hTbJbgO MrGFBpdm27rJcvBLcyZVO6 BFNppyAfj1Xvs0bmCaAvvl ClJ6zmN5RzKLAaSQJyNXDc YvFzclAwr8Kbh9DzwIRjjB n3g6rdHIMmZIInyNzcw1hs RKF8TKPpyETyC1hlaW1xKB XwNQ6rusysf5xhIUdnGGoj HQSoqSY8siU1EFMkpGVzC8 HlfV0vEQStMJiiNJPvwom5 GvOoRv7tsDGxkOetQAjqAx twYWdlXHBnbmNvbnRccGdu ZGVjXHBsYWluXHBsYWluXG YwXGZzMjRccWxcbGFuZzEw MzNcaGljaFxmMVxkYmNoXG YxFOywM8dyUcYmTsZiQht9 ZDTquPVbQGEnKsr9NIWipR EfKHBYlUqkhL0vFADszHmf dG6yxNH0EBPvcvRhdBUTrQ 5wDHWXjU9tVtMiMWLjMdB9 LTcxNjNccGFyfX0= CPT Code(s) (test code u6wtaLTpLAJhlSS3ZjPmQE = 3357) Vwv8jqq2HdqHFnsLYhPLyo vXXhnxOdxq27gRH7eH74CY 9wJBKlDyS8PLHmvoD8Qmc2 ISKdXGZvbFKfV853u2hrp8 detcHfeDU3rMxiIPGzWZEd YWluXGZzMjAgODgzMDUgWD WbLHy2FeUrNTnbFFNzhs1= CLINICAL HISTORY (test i1pnrFZuRRKooNQ0AmIyOV code = 3356) Jtu4zke5UlyKFblMTgJUnv bJIuytKgpb04tQL7zI91YB 8mCNToOhS1NULcsqW9Aur7 EMIaPHVtlVCmF229t8qvd6 qkbiBaoTQ5rOzhEDPmSCDn VFxrCPGkItJbOHcvWcQ7wB BsiFbqULKci2IlyDJukLJj b094TRHar03asQO1SGCwk9 z9yCFrdVWoBSMdmoVsWYfm sCS0ddDwfBOstV2tmQ1jEX IijVmgDwXpl73gvFCjt84b KVLwq0TiC6aenDElOQTvto Fjm5PyYb7loFclgY1suICc wMChPEYlaCvgAODun9GyL9 UgXHBhcn0= SPECIMEN SOURCE (test q4pdvAMkNYHjoHG2FqLkQG code = 3377) Dhw9xra2PffUHcqDRoLEga tLUhpnTrta47zMV5rS06RX 2jSAKrJrN7VNItifQ5Nnd4 UIObQTGztVDeD017r7jce0 sqxgPliWT2sQkeTIKrKNDz CKxpFAZbVlHuBF1yN81lcZ Q8xRAbfJLqRGJgPwWtEOIl OG44SgXLJkWLb14sRSwuAH J9 GROSS DESCRIPTION (test e3yxwNBhXAAyeUL7BdJyFI code = 3366) Sgk4cvi0BodGDzfVOwSUfc mLLvjjQusw17mGS8uG36GD 7dDWNwIwY1KVXxtwM3Jxp7 SFXgFKTdpXGpR734n2zqm0 eeubDpcUF0oXwfZHNbPRCp VCgoEDYzZdYeEK7uUEqhFB BaHEOgxONzGGbiRPWvU2Km leEmSUkhUGTwO56bsUKlyf QmEZlfjHmdIq3uaDGrhM3k jFToJGaoVIX2rVAvFXX4gk SwZPBxHM06KKqdQB17sVWn VMZwQHJwEOYur35cxUW8yR VlyZDdRBMfSmOuVDJtSX91 Ud5uEMDuE03gt8dfgZVdm1 UdBLKwMUepNC15RPsrSA0w GHZiVJVkATscQF65EK2xVP Rief61lJh8QXX5bVJfeYYo i6onD6truXPuQo0qYNbnbP XkgZRzSiNAyBYpdHN7CJNv sS3qAQYhFPM9NRWzzAcrkS NqJAPqRWpxgFJoE8S3dD4i NiKoJRXxzfbhUXCkBg3xCB hlIHNwZWNpbWVuIGlzIHJl Q7FinwLzEYebLAVaY40tdR NgtqCjKAjexWwuQo7kbLNx aU7qhPGvCZcvMMQ0pEEsGC J2ulDlRWWsPR35QUdmEE54 aYPeRRNsOZAcLROtKv7yCS PdBSx9ODLzkxJdy5SkZU2n FIVzHJ74BMncWFU6ODEhD6 8cImAwL65nhkOts5KgFu6h OPE4wVYnLDTjxPbwoGrcmn PrANE4dTfmN7PnOOJem8Cp BMDoA3Xuu52aRQJsulEol0 XbxIy9iYVgBOkwCGDdKMDp pEEdHQHnL6VoU1ziaPVfqH tyqt2mCEGuJ6AqCWTotq6= MICROSCOPIC DESCRIPTION p6pxmMRmTTMnjPP5UkJgPB (test code = 3371) Ssr5smw6HnrNTedYXjXOku hZBicrWpoi86tKQ9bU29LT 5sDHNqWgT3UCAomaT6Vgd1 JDWlIENwmKNpJ439l2gib8 qucgVxbYM0fWvvSSStEFFn ENwwMRUyIvPhJJ0ZXlWLOR Boo6JgGWOjFBvbNRM8 Gross assessment was [facility] performed at (test code Hospital, Department = 2777) of Pathology, [address] [place] [address], [place] [address], Technical component was [facility]. [facility] performed at (test code [facility], = 2778) Department of Pathology, [address] [place] [address], Professional component [facility] was performed at ([facility], Department code = 2779) of Pathology, [address] [place] [address], [facility] [id number] 09:25:00 Test Item Value Reference Range Interpretation Comments Case Report (test code Surgical Pathology = 104) Report Case: [id number] Authorizing Provider: Laura Muñiz MD Collected: 09/26/2020 07:56 AM Ordering Location: [address] Med/Surg Received: 09/26/2020 08:55 AM Pathologist: Hilda Mack MD Specimens: A) - Soft Tissue, Debridement, LEFT FOOT BONE CLEAN MARGIN. B) - Bone, LEFT FOOT 5TH METATARSAL HEAD. DIAGNOSIS (test code = [id number] 3220) FuZzEwMzNcZnRuYmpcdWMx IHtccnRmMVxlcGljOTIwMl cagnIwAWSwuDOwG3Pfibji QGudCQ4oXB6ytZcbkYFtxQ NoBEIgRlAzh0fiq591mBYq i3zxCMCKorfpxPs6eJqlS2 7oa0K2DugwO79weMIxQUiy bGFpblxmczIwIEEuIEJPTk LyGLmKHyQrHj7HHYFVAHSI GxIUCYGPAN7dOTXVD0WSSY rbzITjNUEmVP9mMu0DSANZ RnLvVbpOPt5AF99AKRFSHX YNOEVYP6CRSHgyIbLXVHCT ZvWfCu8MRVFYWGMNLJ5WTR VPTVlFTElUSVNccGFyXHBh ifAAUfRJZ61JUJVSAPRWFL IAD2SpFUJPUX7DOVKPNDLD APsgSBBAMGsdYV8QAUZGHJ uLGpwfqBSdSBMyZY8dIQEG LCDkYP4ZTSYCYg2WTAAhA6 JNRA1GIVSPOFWDWtToaOUy mEdmczVaSIwjv9SsEDduUS FaNL0usUxhFOVuRA2zMKPu S9ipnY9tlgj3UuJkBHRiBn R4POFuywN6Umf8NWQfMOgq u7kpk9CdDGXoQWs9bCpyUo PxMKUdo5xnriSbEbYpSMEo LTGkDLOzeWMtQ074v2dcb2 rbmzAopXN1HQJcAIL4NTtt ywEgwlY5HXdhrTGdNnK3LN tccmVkMFxncmVlbjBcYmx1 RXNoH800XNN7sQtng0wmES Q9VTYpCJCkAyJfBb0heFUv W248NQZiWSSLWFSmhVm3HN TmfbCoikFysAJDx462E756 v1wiJGEzhuOlpHyMsneyw9 rpB289XWBnpRHjcyEkNsPj HRRrkNCgqUU1SUStVT9rgy tiEWgxMEufRRImqcS7PCQe uXShL9IjJUByMV4gdmheJW T1ZEvoEZDaOKO3ZhThOKCs h5Fqziv6KoSnwa1apx05LG W2w8LvqDtxKKL8NCR2JpVy Ay9ayBNkVLMhPT5oOuKxwS ZjADBevj11nMosDOwqUZB8 BDCffoZzp6Grf0zqMwLqwo EeX7usJ6UeKXXmKZMiOYDz MvQwtvFwp0Xjm0UnmTJciJ y2p8ntEABwCOHxgJcxc5qj EAG6NVYwhETgJ8nfeX1yZO LqEF1qvhdxr7soKEnkPHnb ICGlqXF8yuM1TMEayWXwJ4 MlzM7iDLZdYGxlEMUxoiv2 IyBaKp8icTMasYozWAwoIh twYWdlXHBnbmNvbnRccGdu ZGVjXHBsYWluXHBsYWluXG YwXGZzMjRccWxcbGFuZzEw MzNcaGljaFxmMVxkYmNoXG VaFEupH3naTuZwKnYzCnm0 LUSuqRJjAKYaHtm6ZBYlyI NiZPJUsMelrM9dHUKlgBlw iG7hpQX9LMHyuuZgdQXHaN 7xUJUTjT8mBqYnKGUeBhC8 LTcxNjNccGFyfX0= CPT Code(s) (test code a0eevJLvGSXmnGD2EbSoBD = 3357) Yae5ezi8IysKCurODvEWjh tCRxlxGmfr61iPL5sI94RH 8jKCMqUfA2FNSigvU3Tcq5 RBGvLWHcaEMbT117m2rgi4 nhfeAhqVR2fOyyIQAcKLBm YWluXGZzMjAgODgzMDUgWD GaNVw3KwBcZVrzOEYjpw5= CLINICAL HISTORY (test x8nroXDeLEUveEA4AcLjQR code = 3356) Fwa7cbv8NbxSXirPVqBBnt jCEixeEoni08xAD1yY03RI 3iEGYhQuZ4ZLZfziN9Qhg7 ZSJfHCWeqHUvR065k9fxf1 hnocRtjOC7gArwDRUnGUXi CFeiRGVhXhPhRAmjVfG6fF CztGdsDPYlk2PwxHEexDBa j460YDOqu38blYI7NNOkp1 t7aNMhkDRfHKGdkgZcDAma fGC5gkCjySOwoS0rwS7eLO NghCbyNoGas98cwXOsm40g WODct3RhC6zrdJCzIWLmwt Zxx9QpYi8pjCdvaM0ywXIn zLHfJOKttIglDDCtv4NwA8 UgXHBhcn0= SPECIMEN SOURCE (test m3beoSTgHQHfjXW4CaIhGP code = 3377) Fdt5lxx8CuqWJqoLPwYZap zUItuqPsxb99xOS8cW34YS 6oCFJvMdJ7EPAmdrT5Uzb5 YCNeAFHrxSHmU180e8qbx2 vvmjEffSJ7yQcaBLEuAGFg AFuxHZKjVqHrYJ0kI29niL P4cGYayCJsSBFxIcLaFNDj IM62HfDCYsPJc15zMUceIQ J9 GROSS DESCRIPTION (test u2ttuADgCPComDJ1JlXdAA code = 3366) Std6qyc5WvtZPiaNIgRIzz nFMqjgJkwu27qKM1wK09CO 2jAOWkMjG9AAMwqsV6Rgz7 ISBvKDSvuXBuR927y8psb0 tiopUmzHY5vCsfFULqMTFu GGibZQVyZzKuXP9xMVcaIQ QtFHRweCTdMInvVBRfE4Gm toPpCUyyVPScG50zbUZliq KcJRaiaEeaCw0xbXWbxY9f zNMlSHcfALX8eHCyBKG5pt MbVNLpRV60DHsaBR97rOQl PBKrYNNhJULig57ffHV7nT AztTTeSIQsZrZrGPDrNO66 Qm3iZTJaT20tw7nebXGlq1 NdLAMcTRngHH85ETwsXH7t DLKhHPNkLDkyYU97OE1kGG Qpue51fOo8ZEZ6lWBnuSCr v8wuJ6vbaDOmSn6aGUdcrN TcnQQnMmXDdBDjcCW8SALb qN9yPGRjMVY6IOItxLyigF UmHHKtXKvysCVoR2D4fU3t MeCtZNRmmmvuHZGoVy0pWK hlIHNwZWNpbWVuIGlzIHJl H2VsggWuJFypUJKoH33nyP KzolVzRCopsTonWq8bdEBy uJ3ioLEyZTmwJMT1wBGlDU P7tgGnVZJxJF68DGkfXK18 hLTzSZNmEGImCPWsJk6pUF HsCMq8FKSpvkLkg8HxKC3y QHAtSP94NRfhDNC0MWTcF0 5tOuRrB27vuaAky3CfZy1w MLR8iTOdWVHjzIlmxWyohj ZeRZX5lRkbP7KmZABvl6Oz YIWbZ4Ony41hXORvqqEsn9 LqfSp0oKUqBJvzSUJeWJCo bENiUSFnS4NkR7nmlKWypO ikvs1cMZHmV0MkTWPpkt9= MICROSCOPIC DESCRIPTION v0tztXFhNNSpaTB1MbWtDD (test code = 3371) Rja8oih4GdgLRpnHRxAHlb gEUbrwCbyf01pCE0eW88DF 5eVRJbRrE5MJEymhE2Fsz5 AEBkGEOmaUJfV933o9xov2 tegaKxhIT2zLepLTAaVSHt QQpfXZUpPzAcYW4TIsHTGO Nug4JlSYWcFOlwUXH5 Gross assessment was [facility] performed at (test [facility], Department = 2777) of Pathology, [address] [place] [address], Technical component was [facility]. [facility] [place] performed at ([facility], = 2778) Department of Pathology, [address] [place] [address], Professional component [facility] was performed at ([facility], Department code = 2779) of Pathology, [address] [place] [address], [facility] [id number] 09:25:00 Test Item Value Reference Range Interpretation Comments Case Report (test code Surgical Pathology = 104) Report Case: [id number] Authorizing Provider: Laura Muñiz MD Collected: 09/26/2020 07:56 AM Ordering Location: [address] Med/Surg Received: 09/26/2020 08:55 AM Pathologist: Hilda Mack MD Specimens: A) - Soft Tissue, Debridement, LEFT FOOT BONE CLEAN MARGIN. B) - Bone, LEFT FOOT 5TH METATARSAL HEAD. DIAGNOSIS (test code = [id number] 3220) FuZzEwMzNcZnRuYmpcdWMx IHtccnRmMVxlcGljOTIwMl veafKjWHFfgDCxJ3Xckcdv GGujYZ7kLT2fhCrppHIbtS NqRUZmZiOyn8wjw508fHBr a2ogQJKCcittaOr3tKluA3 9ur4B2AhaqC27kaDPkKShc bGFpblxmczIwIEEuIEJPTk NbIVwHGfRtZl1FIYNTPXBX IoJETFOYJO0pQZPZC6GZAX wleSHrFBLmLJ1kKz3HDLMC AmPqDzwJUd2CI96PNSPHVG ENIPAPB2YLGPloOnMOGCXD ShDqPb1KTIBECRXGFN8XMD VPTVlFTElUSVNccGFyXHBh mmHQDjTJS96EWZYMRCOCEN KMF9JlZKAVAW8RLQGPQPZN XQroEKPHFLasGJ7CUGZLUR iVCqkwgWGaGSGuAO1iTIZG EVMzGQ1GEEQILh3DZBAoB2 SYAA6OMJZFTCSKHjDuyBBe jDqvbbDwFFwte0NbKTfoTA TtQF6ycVmzHGDjCT8qQJXx B1exiM9dutn6DpIxNAUcJs D0QYPlqhT2Pjg7IBXaAFms k4nyy0QoEDQsNSw4yCrcXi TaFKXag6vmkaGjTqVsHUTw ODYfQRYfiFYxL321g9tpb7 kjntRndPQ2YCFoZWU2OSnu qePsnqV1RPvhbVNdGgQ3XA tccmVkMFxncmVlbjBcYmx1 QMKuH612LKS0dTqnf0ktMP O6CKNzTGKgVfZyLo0gkYEd F897XLNbYWEYEGFywMz5RH HtkwNprcXzzMKVd583Q933 w8zfHGSuxcRqxCePgkqbv7 ydR109SUZgvKBvoaSiFqDb XZEraAGkwSO5OKUbOY2vmq bgMGkjHKydYZEnamM1DXRc qZYrE0BjDKAaAO6qwranAL T6AYswKYZwPQO9UcKbGTDe e0Nsvqo6YzZvmz5rzu43KH M0r7PoxThwYAX2HKJ9BkQe Nb0ebYXnPRDaZU6eHpLsqR ByKZWnsd80qKfbOXsvACM3 TDKlksRxm7Bel1gdWnLyex CcK0mlV5McZTCeACWdRKGs KnRwoeJom7Ces1PbgYLvwW c8y0cdPZRhAETerXzvy5mg GIV6LZDyhSFeL2yflB0cHI XdIX7jwdyus8phJGaiADug IBCjbSG6akE1KKIozQGbV3 PixK2nSSDrMVuzGMAlawl3 AsCuBu0lmAVlxGejGIagIw twYWdlXHBnbmNvbnRccGdu ZGVjXHBsYWluXHBsYWluXG YwXGZzMjRccWxcbGFuZzEw MzNcaGljaFxmMVxkYmNoXG KoOOeqM6dvDjRkFbMcBpr9 JWMiuRZkIOXhGeg1KESebT OhIQOKhSahfN7pKUYfbXfv rA7poEO2FQOhfpJteEOClC 3xEOJYeT2yCkHhIVDfWzS7 LTcxNjNccGFyfX0= CPT Code(s) (test code c8giuCLyLXVqbWZ7YmWlYZ = 3357) Rdc4kom1DdlPYcoJGpDBgr oWZrxiGtyk71dOG0uK49DG 3xNFGjDsR8DDUgmoT3Iyl1 LQOjDCPbfAFqO696y2eux0 ycusKvrME2xKqsUGYdORXt YWluXGZzMjAgODgzMDUgWD SmUOu8RpOgATucOYZbgs5= CLINICAL HISTORY (test w0qnrWOfUNBcmOQ4HnWdAV code = 3356) Xqe2ztx0UhgJLxbZGxDXvl mAKzrpRcok25pQN8vW24JH 8aGPLdMiX8WTIabwU3Ojn7 PQZwXOEbgWYeL647l0yvf6 yhxjIegSJ8wZbpPTOcQJLp OEgnJYSnUbZfTJjyHqW0gC HrlWzoTVXfn6XlnVYzsZBh f665ZCGdb27qaOA3AXOpf9 q7nEUmgKWlPZXbmgCdOPzl wFN6caKvkDPzyL0alZ1uBS GtgPvdWoTxg02vnDTbd06m DZBog5OoB8lkvNNaYIDypw Axv1MdLd7cgZqmjK5mzYHh cKXcORXjiIagKBCbr9KaA8 UgXHBhcn0= SPECIMEN SOURCE (test b6wawAEzCVQlaME0IjQgXQ code = 3377) Sya6gys6NlbLLsuHVvGJic kWBowhYvbo17dPR3mE92MA 0rARTwCnS2JGYzhlN1Wal7 XMGeCBSdgROoX248r1xuu6 ufvrEhaOQ8jKtaQGOwGFTc RFfoFHIbAoMnAK2bP01laM P1qPOaiRYfOFBvHsWoIZIt MI74PlYUYtNRq40bZEwdXJ J9 GROSS DESCRIPTION (test c5yowQQbPPJdcWS7YcSeSX code = 3366) Jhe1wuj1GriIBjyGBzITis wOHpfoDnbr51xRQ8bY45NC 3uFIQrZiB2RMVzflT6Odt6 QZAlLVIwlUObG538o4gef1 ucsgBqdDR9xDyxNEAaXJYk MHktPZCvRpSnDD6tNQcgXB StWYRdnIFfMOjtLEFyF2Da boIjUWfmBGXvQ89ucLXknw ScUEivhUfaXy4kjXFoeU9z eZQvJZudEZX9kOFaDJC1gd SbBDBsHO05HBbxOC81jJBj HUClCNTcOBLxt26fnMI8uP UzbUJgSQJeXmGmVEAvAU28 Lx9qOKBeW44dg2jmxESux1 ThADWvILrwPV34WDmdUC2z APVpVZEuSNvqEL88IF5bYZ Ckmk78nGl7PXB6sFPtnKLe c0eeL1ddiROaSi1aYMbeoM HoqRVwZdAAiNRrzHV8QTLv vU6xNZWwSZR0ZKBoqHafzB AgUEYjYFpkaXCmL5L4mG0m ObJbOMOwwbqsIHNiIl1fDY hlIHNwZWNpbWVuIGlzIHJl C4OnguDkBPnsHSUmG02gmT IshsUnDMecbBkpZa3ogJXi rK8qvKCkVCqbJQK3uDCbPW W4xlRqWGNeVL61QOmeRJ14 gKUdHWUkUKMaGZEpMn8dHJ GsYGz2TYUrzuCkt0RfSC7v RZDnCE01RYctBUT5DKBeY4 7qCsQkA44bdsYwn6VkCg1q DQG3rGHmWEMgkHydrZazjc SrFPN0jWopY6MbVKQnn6Xe ALVfU5Rui56oNEItfkDbb9 TiqYc2yTRrHKluXLQhTEIx dNOlTMItZ1PjW0erbJYatY excj5oMWQvF7DdMKLnco2= MICROSCOPIC DESCRIPTION o4pjuXAzXWRvjVD9SwTwTT (test code = 3371) Zpb8ngt7YkeXCouUFoHYdl gYAxfrKkww63xBQ5lT87GE 0rMLHgZzF4PKKxpbB3Dfk6 LHSfPTYqaRUzV139e8nde8 ikgzGvzUW7pHdtIVFwAEQt RSdcRGBjQfWtIB3HOyZFPY Zjs4DsIOBqDUafQOJ4 Gross assessment was [facility] performed at (test [facility], Department = 2777) of Pathology, [address] [place] [address], Technical component was [facility]. [place] performed at (test [facility], = 2778) Department of Pathology, [address] [place] [address], Professional component [facility] was performed at ([facility], Department code = 2779) of Pathology, [address] [place] [address], [facility] [id number] 09:25:00 Test Item Value Reference Range Interpretation Comments Case Report (test code Surgical Pathology = 104) Report Case: [id number] Authorizing Provider: Laura Muñiz MD Collected: 09/26/2020 07:56 AM Ordering Location: [address] Med/Surg Received: 09/26/2020 08:55 AM Pathologist: Hilda Mack MD Specimens: A) - Soft Tissue, Debridement, LEFT FOOT BONE CLEAN MARGIN. B) - Bone, LEFT FOOT 5TH METATARSAL HEAD. DIAGNOSIS (test code = [id number] 3220) FuZzEwMzNcZnRuYmpcdWMx IHtccnRmMVxlcGljOTIwMl ycpjRvYCVehTKyF4Sjkxah UWkyNT6xON1hcBydcLWjcF IsUGSuPfFss2zil202tYSp n2udRTLBheyqbMy0sFypG6 1ir3R5VtsiV66giODsNFjj bGFpblxmczIwIEEuIEJPTk ZsINzWKwGcBq1OWWGPHGIH BdYNBVAWNN3nSSTFI4GACF xyuMLhEXVoRR1eRb0HWXXD YuSiIozMSn0CB51WAXECHK SKVMAUT7XZEWcnFzIZSYYA WpXpVi9ZGKJORHWTNG3PVJ VPTVlFTElUSVNccGFyXHBh yeNXSlABJ52ZRRIXKOHLAR JQD6DrGWPWYL7SEHKKZYDD LGznTKGAKNjoRG4IAVVLIV eYTxwdhQEtUCInDI4kUICH GIByDZ6DLIDVXt4IHILkK1 WNYZ2FQUDZQJZHMiKdkJEp hJxtxzMvRUwmy9JzXGjhZA VmYS4lcVbbWBDxHH2zWZKh W0bcpY2wsuz9VzDnLSUiOl P3ZUNbkdD8Mza5RWJnTNxd p1pyg6AkTXKnAYq7fUooFy BiLJLpr9sbwsWaSkMaXVHv LWMxYJYpgDEdG327f8ijk9 avipLcyGH9DCEiUOW1BWmj kdHkbrK1SExtqQNzJkD4FC tccmVkMFxncmVlbjBcYmx1 JTWuE110LIR6zVukk5bpRE A2AMSiHTAhJjFvRv4acJPi I363KGZkENUYXUJtxZg2DO WbfvArhpJhvNAEr338O663 o7ymFIVywdLqnNnWqcfcn2 udZ043VQTiaZMcyuSpLjBx VOSmjYSlqQH2YMVyVE0tnv neBDkmYIslKZGsguV0NLXe sRQkH9SgTDJhDS0tmppbWA Y1UVgkCMWeTHB4OfIaMBUg z8Bsyxf7JnFoaz6osw29LY F9l2RcpLuqHJT4QNX5XuYa Ub0djYDxOYInKI2yStAskP WeNNXede71xIyuUPkoOIL4 NZZshkTmi1Fsd0tvUzElfy ZnW2hpZ9NyTAVdAPQuMKQh XuMpbnJws6Xqq4GqqVDefZ q4s9uiBLImERHmlDgfw5pg PCH4DIQgaEHwY2lgwK9bMV OwXI5ipmxpq8inTTqaSSzr NMDvjSS9ocK3BZVjbEFjO3 BahQ4ePXCdZWxgHHFymul9 TnOoMv8zjOBbeVgxMZduIg twYWdlXHBnbmNvbnRccGdu ZGVjXHBsYWluXHBsYWluXG YwXGZzMjRccWxcbGFuZzEw MzNcaGljaFxmMVxkYmNoXG JjMObzV9rbHhDmOgLjQpj7 JXBaiZCrNBHxTtl7NQVsvE NkOLIDmVdsuM7aXPXanWco eN5cbYX8KXBtajUecUROgS 4pPNAIeO7oHvYeQQSnUdV2 LTcxNjNccGFyfX0= CPT Code(s) (test code q8gmyDOhEGFouGG7MhCkZM = 3357) Xvu8mon0FegKPesERgTQzm tKJfziYnwq09vOM8gZ83CL 4rCLXkQbR5RTOzetB5Kpa4 BPHqVJAhyPIjL538x0gsl8 bqtwIrbHP7bDtjEFAfEQEe YWluXGZzMjAgODgzMDUgWD QtPHx0XoLxQTmmJMObkk0= CLINICAL HISTORY (test x2culFLfBNJxkJX6EyJuUC code = 3356) Oxu0aap0QlyUImhLSoZKwd bRNczfUbkw33lKK9jM01FH 4rKFHsZcT3XAJszlW2Tzr4 YJSgJHOedCUfJ631v0giz5 smcwGogKE8dFppIJXdSKPz DNnuUCZzDwFcMSsxArQ9bL PftTeuSWUiq1BrgFWoaDJt v219AWJho01mbWL0JFIsn9 u1fWWzrFJqHPPnvcMoHDsi sTJ0djEbxIJelV1obN9aDX VirQikPxWhz56lwCHpk15h LZKsx6DdY3kpcCQsLODlmk Hvr8NuUj6qpUzqnP0pqFEi pQLuVQEcwJkiHOWuo6OzB7 UgXHBhcn0= SPECIMEN SOURCE (test w9ebtGMlQQBcbBJ5GvFlQS code = 3377) Umk1cqc1ZshDTuvMGdQNic iNBuezWlrj55sGW5vF25LO 6zGQWgGcX1DEUnqoI8Rgm7 FHDhCALvzQNqI551d9vvl5 lpcuZxgOC7mQwgGSYzZXCt ABymAWScAsEdPK1wA24rtH A6zFSxuOTxANUuRkUkQDTl KP24BnEBTeKCt65kCWimRX J9 GROSS DESCRIPTION (test y9oldJFdYVCojTK6RuLlDX code = 3366) Owe2rng1NsuDFdmJQwOZpi fXErwnEyfm05qLM8sV91MB 3tRDWdLrV4GJXftiO1Gbo0 YTRmESAqsTKuJ247a0nuc7 bidtJpzLR6gPepLWNaOQCi RYljTRYpOoRcPB4mAZbcYS HdBPMrfISwPVoyOEBzN8Yp giOyLLiiWCCjD78xcCXkxl DmAMwzlNzzUf8upICpfH9k oFHfTOmeDRA1fASfYAK8kh QsRITxMQ54DVccFE11dCJl UKPxEHPfFCUzo73ncSS4sG JsrPMpVIZwZoLdPSZvAS61 Qg5qICZgO79rg2jczPPva4 LkJDZeMVgkGG19ABoeSM8w HILmWKFiAKbxLE04FL8tUG Xupz44uPb5BRT0wMOanRKa u1hcE9cyePQeVx4sADoltL XfuGBxEgMOjJJemUC9GKBi lL8cAXUiTZD7BVDnjSwydU JfLVEsOPzykXHqH8F9nN0p FaMwCOIdbzepPBPdOq6aZT hlIHNwZWNpbWVuIGlzIHJl U6EiqgLdRVopKIZgG42tiW YjvuWmIKareCzuKu2ozFKm xW4vhBKyHDzhZKN9rZMmPX J5khYfNXUzMI62NZdtTE71 kBLqLJJqJTXsVJBtGy6eOR SrIKb5CNHiorVfs1FkBG0o IXGyNX26ELcoSPI4ZZVcB2 0aKfJqY50rfqLis0TjGd9t MRS2zEKvTKDpwEqnzCvwnj KfDMJ2wYptL3YbQDPne1Bc YJHeA4Pbe96oCEWgblIdz9 XzsHo4mJMiTLvfMBXnDCJd zDJuFLQmB9VzW8ngyNCtzA vwzj2lHINfW3CxXTWash0= MICROSCOPIC DESCRIPTION o0dzkKKtOXIghMV6CoMcTS (test code = 3371) Yyv4zdw0SyqUZyvMOrXFpn nWHdzpEfks60cCI4kK26CL 5pEIRdNpY3PIMmvlF4Miy3 DLWnALQzuVSbO917c7jua2 hufiJcrPX6xKwaPGDgZJZv UCwfWXBeWgIfKY9TPeJZXC Uyi4MoHUYaKYtbRGE4 Gross assessment was [facility] performed at (test code Hospital, Department = 2777) of Pathology, [facility] [place] [address], Technical component was [facility] performed at (test code [facility], = 2778) Department of Pathology, [address] [place] [address], Professional component [facility] was performed at ([facility], Department code = 2779) of Pathology, [facility] [place] [address], [facility] [id number] 09:25:00 Test Item Value Reference Range Interpretation Comments Case Report (test code Surgical Pathology = 104) Report Case: [id number] Authorizing Provider: Laura Muñiz MD Collected: 09/26/2020 07:56 AM Ordering Location: [address] Med/Surg Received: 09/26/2020 08:55 AM Pathologist: Hilda Mack MD Specimens: A) - Soft Tissue, Debridement, LEFT FOOT BONE CLEAN MARGIN. B) - Bone, LEFT FOOT 5TH METATARSAL HEAD. DIAGNOSIS (test code = [id number] 3220) FuZzEwMzNcZnRuYmpcdWMx IHtccnRmMVxlcGljOTIwMl ewbaDqDGVkfXGnT8Ojwamr BEejTX3tYV5mtIytaOFedK NnTURzYjNcc0tpd718gITx i4vvBJSUewegaXe4mYpaY4 9no2Q6TcohB68ahLRnCUdb bGFpblxmczIwIEEuIEJPTk KvWVcVAlFkUo7CJASLMHPD FrBEOSQLFN1hRURTW8ZELM kduOFcJVXkVM0eOu5CMNYV LsRsUcoKTz9TB63KLPVQLO LVQNYHO0RQATxgKwJHVQNV EmNrRs0RTIMUOJJEXS3FQU VPTVlFTElUSVNccGFyXHBh pvLHCbHEF92AXTNRZVHMKK DVW6IzSFEZHX0UBENNQSZQ ZHncZKCVSQicZF6VOBDJYN lQQqufkQTuTNAdCU6yMIOA RWWiUY8UQFNBSf1CHEJkM3 EFZJ9SKZCIPNDMLgBktADm bKaediKaNGoio4MhIIrfLM HpTB3jwJibJFRdWV4sTRQr Z0wrwR5sazi0FpKyIKBzEt G3ZDEjtiR3Bah9OUNvHTuf y9ojr3DqCLJvASa2eBhlIp UgHLCdd0hzrkDwAoQiCRLm IGBpWKAgkLUxO285i5bjp4 eeixXfbIZ0YGPiBKP8MSnk ygFxbiK9LKiaiXHxKzL2BU tccmVkMFxncmVlbjBcYmx1 LTVtI049FCJ5nXuyh0thTF M9ILIrMJMeXsDaNu5rjUIe C180NWKxGVEYWZWdpSz8ZW RenwLtxwFqlTEMj853O152 s6zrBOArkmQdjQjKeshyk3 hzM648VXTphTOpnhLjHpYs VMMbsJIvzGO7RUYiFE3akz vsFVqhEPhvDSQoncC9PWBn uKHtE4SbESViTL1kkheyLV Z3ISapMKDjGXL5MkDfZXTm i7Pyhxc6NgIdxv9ovg86QQ E4c3OcsVvoADV0MEN6CaVp Tw3miUEzYPRyIT2mIlCjkF FtSMPocz67wLlcJLcdOGH9 WHDrdaClx1Iqe1msNiMzab EvP3ugW4CeYDBxUFJkTRDr MwZmwlVru9Wtn0DehZHaaQ f3w1epGLOfLAFybHxak4bh YMI6EDHhpCEuT6nriJ8vBZ SfWP8ldsztm5rqDMqkVYtg HUMzqEF1juQ3SWVvdAJnZ6 FwsE1vHAZzKJdpBWMpybo9 PkUjWh4jvSZydWmfVEalOd twYWdlXHBnbmNvbnRccGdu ZGVjXHBsYWluXHBsYWluXG YwXGZzMjRccWxcbGFuZzEw MzNcaGljaFxmMVxkYmNoXG QbKBkzE4vaRnKlTtKhFbn2 WHDryOKwVLVeYes0BJQilK DgIUVPjJakkA8cOVNhoNdd uO6kyHA1IFIullEchDUDyD 0kLWXYeZ5zOpCfAVTvPiV1 LTcxNjNccGFyfX0= CPT Code(s) (test code g0pqtOYkLRYbgIB2EfFyXW = 3357) Wvt3fou4BdtNRshFRfQSfj sNTobiRfmt91xOC4jP01RZ 7zQKWeGkS6RVKdxxT4Etk2 ITSiKPQgjHZnQ520z9few9 dmynHioVX2yDonNHSrPTSk YWluXGZzMjAgODgzMDUgWD YbSWm7IdThAEdiPGCznt7= CLINICAL HISTORY (test e5pfnSJiHTLyeXX6VkUqZD code = 3356) Kqa0ucu2ShbBGbaRAiCBio gDBsdyQbls95mIQ0vN84BV 2iVWJeVhF6SRPkfuX3Yyp4 JHLlZHVreTOmZ458u1sjg6 dkliXtkQV8bYhcGMHmRJNz KCmgQJCtMnMeJPkpXoX2oE CsxMjrMTQxd5UuwMSllZDg b452BARzm35bfWW8EUMpe3 x1xQHpdNXzSSCgncUxBLgk fTG8obCoqFAvtB8xgW4iEI NzlKocIjBie40ozREuh83i UVIyj6MxS0wxvKKdXSGuga Dva3AxMm4bcJdqeJ0raWBb vQEdVIHklZrlDIElf9VeI8 UgXHBhcn0= SPECIMEN SOURCE (test d0azhFAqVHBksNB4SdRwPW code = 3377) Tkl2eok8PkkLMfsNMqRMis fGLccsVcqm97qVT9uJ84HI 6lIOQpZnS1FIKpfeU9Ogk6 AQRoTOCadIWdA007c5zxo6 ywgmAptJL3zMvhAJMdYGNz KGdgQDZqYrKrFN5uO46gwB A7pYEprIZgYYUrTmDiCWDv HB27FgUEIwZXv00yKRujEX J9 GROSS DESCRIPTION (test v2htqIVwICBvzLR8FzUvFZ code = 3366) Ajt7vft6WryJVpbOKoMEmm nMEvzlBlnt47mDL3xC15BN 0hSCHiPnG2SFBgtjF0Uao3 NZBkGZJamLWqU103g9yey8 ydaoGgyNL2pDxrFOAgXQPe QShySZVsEyNiEM2mRFwsKG DaGFYnoVSlXIdkQISyZ2Qh cnBrGLvyMVJrY26fbOPhpv TiZMzgdNjcFu1pxXOmcB3f iQLoVNqvQQO2aFMwXVG3tz ZuQRZbJA89HWpkEJ11zZVi GGKaEVKpARWmt69wiAS5lL YyzZLaQLDvPoXiGOHuVN75 Ma6xDGVtE30mq4jnlTYqs5 BeQGVyJVyaIH76UQxrOI3h JXTcBWSyLEroLC54PZ7wIR Qyrr36rGn8UIL4bEUcjONr b7woA3sdbOFxGh9wHMosmR JmaFViFaWKpQVneLS3MYHl cM2aJCEpOCT1FTVpkJdhcP CvWROaRDjuzJGzU4M3yL7c RqIaEUBxcfjdPWLxGh2zLC hlIHNwZWNpbWVuIGlzIHJl Z7JninHjTSduETSrQ69sjQ HpsdEpCPliyLlfBi6efSNb sF0pjOVmRQvaBAR2lLThOA O0rqZcVBDaUA73MNyeNW92 wMWgIBNcITJbLZTfXj8zZA LzSPj9QPYkkuAdv6DzMH7w QPFpDQ08BZnjNQX6OSMvG2 1pGqCbP14zpdMmr4EmIs6b RAV2vCCyHPXuxZarvMdwsp AxQOD1vSvoK0ZoKBIoc4Jn JVOcV8Lul34mSCQmvoBfr2 PowUa9bVTgFJubJWWpRRAp wWHkXRAnZ0YkX2imvDFyvV fcfs0mLJKgX0YmTZRhwv4= MICROSCOPIC DESCRIPTION y3qehMSaQBCtiCS2PsExLF (test code = 3371) Bnk0nec7OuaLTlpULlETsl aKBzehCwxz43cBI2wB41BG 1mVTBdLlP6MOJsduX1Bfg6 FGQhOMJabNHpG627j9xei5 ahpoYipCS3tEqrZFLtYQCu WEhlRHBxGmDiBS8HHgYCOO Hbs0EwIRZsZRhuOGY3 Gross assessment was [facility] performed at (test code Hospital, Department = 2777) of Pathology, [address] [place] [address], Technical component was [facility] performed at (test code [facility], = 2778) Department of Pathology, [address] [place] [address], Professional component [facility] was performed at ([facility], Department code = 2779) of Pathology, [address] [place] [address], [facility] [id number] 09:25:00 Test Item Value Reference Range Interpretation Comments Case Report (test code Surgical Pathology = 104) Report Case: [id number] Authorizing Provider: Laura Muñiz MD Collected: 09/26/2020 07:56 AM Ordering Location: [address] Med/Surg Received: 09/26/2020 08:55 AM Pathologist: Hilda Mack MD Specimens: A) - Soft Tissue, Debridement, LEFT FOOT BONE CLEAN MARGIN. B) - Bone, LEFT FOOT 5TH METATARSAL HEAD. DIAGNOSIS (test code = o6hptQIgHXMhf0pkGVQmqO 3220) FuZzEwMzNcZnRuYmpcdWMx IHtccnRmMVxlcGljOTIwMl vzyaVnKNBhzWEbQ0Sceild EUyuZF5xUR7xlCpqkWGqiM RcIIIkYrKtl4jks712jPLm t5ccTGZUjvlkzXh8oYanR8 9mj3W7JjitE31tpPJlYPve bGFpblxmczIwIEEuIEJPTk LtUVgTIjVpMg0YEVSGJSWD ElMOWMODZC6nZMOXH1DQER rsaRCjSBGxNQ1zPj2CSGEX HxIvDinAGb6GH28CDZBTDS CYRUECD1VUAHiwNrPISWHO CmWmCa8BRWYZEDKXTE0UOB VPTVlFTElUSVNccGFyXHBh llMZSpXTZ84FEDRMSAIVUJ OWQ3ZmETTBQB1OQZLPVRSQ ZOhoVWUDZXdlGX6UDXCMHA yKIrpezPPhCDSfTW7dYEUU NXEmFD8WAJFSWn3RXXDjP2 YDLP4TQUHHGBBEUqTydKNc gFeqhePxPRvfv9AiFJhgZL XpAU8zzBvmKZRlMH9tGDRe Z4rhjR0jmcd2PpIiJHHtHk M9YCVtvoH0Nik6PKQsTLge z9odw2XiIHEwLTq5rWjrNa CcFDMqz4cipxPmOsVpFZGj WSQtPFLshNDjB137n2yor8 bvaaZmzWN2GQWdSAF8AVpf myQikzE8YOvamCDeTnN1UI tccmVkMFxncmVlbjBcYmx1 HOMwT246KWD4aIcus6qiVL Z1AJLoTJAhMuSzPx9hlUKl H093LOFqGKPEFPNohCl4ZZ GvbiKoybIdwYHZe608F261 d9xjNZYfkmCebCtTspmxe0 ipT408QTJwhXLsqcFbUsXj YYJynHNciZX2BXWkZF5pxo uhUNohJVjyOCLstkQ5ITCt jIYgQ6BoKBPdIS0bnrtyXK H3RMkdJMWpCKG8DvGrKIEo y3Swggy8LxGuij9nwe07UM G6u4ZkpGjpISE2KAE0XoOz Lk9waWCpKUGvSQ3zCzXogF MbJXYmjt08gVaeSKqwEOB8 EUMsivPvu0Vfp8vbQdVxxi BbN8iiN5UvWGWlXUSpUUFx NoGftbEaj4Ski4LzgCWjpL f7u1bqXRBbQYUvxGqat0gj VMN3IMRpoIJnJ8vywN6lCU IwST6rfhzrp1ikMKzpXCjt ZOKquIK9llC2HLVqkDEgB2 MhaV0lWIMmLRrlZXTlhps0 PoLvCo9qjRJkxYwgNRmpHy twYWdlXHBnbmNvbnRccGdu ZGVjXHBsYWluXHBsYWluXG YwXGZzMjRccWxcbGFuZzEw MzNcaGljaFxmMVxkYmNoXG SpAOjmR5zjTpQkScPwFmn0 FMToqGVvXBOcUia9XPZroM OoYFNGnWfguA6yZWGhvZcx dD9jlJS4GZAimnCdaLMXpT 3bEKFHwG2wItCuRNZgLjA5 LTcxNjNccGFyfX0= CPT Code(s) (test code y8kabNXzXUIadEO1MfVuYS = 3357) Pvf6hiq5TzdCCxwRLvQNcd gCVfknSvsb64vNS2mO71LR 9hZMNdPfQ5UWSheiE3Fdp3 OJDxOBHwoDLeW295p6nsd0 valtQvbDG9zSvbVZOhCZVd YWluXGZzMjAgODgzMDUgWD ZjPJs2FbHoJNgtWGXhqy2= CLINICAL HISTORY (test i2pnpRGhEOEupQL1PqFzHP code = 3356) Oej6twb1VmcDYhkMSnUImr bUOzwyCklp93xLB0qW54RV 5lHMFbGbZ0IFTwhgU7Sep4 SYPzIGAwyFLrZ184k2jhm5 emzfCogNA6wCewYBKgCLPn KRiuFGVcCzZtTBydXqV6bK ZsmBmoUWHyk1GviXLfcGJq l603BMIed92mbTO8WLJqf4 w1wMLuoDFkRMLrgjBrJPje nWS5hfMumROzlX3gmZ8lXA GwpLfkNiYmx89ywJFgt91a JLRef1JrL3zycPRpRGRawe Ldg0GrKt1fgOeqyE7luUUf sLQfPFUdxLyfYVHti4MxN9 UgXHBhcn0= SPECIMEN SOURCE (test u3wncDOhOCQdyXQ6RhHfFI code = 3377) Pqb3pzq3IerXGapMWiLZoc dSZzbmCrfn99tMC0xV68TP 3fMHRtBkV4AXKudtH9Umm5 IKXlEUVrfKDrR200b1jrd3 pijeUimIF8zVpiHOOwOGEo UFyeJMZgWmElMN6xU03qcX N6nFZvyIJcOETtZwHnMDOm KB38OjYCElDJn87kMQspPR J9 GROSS DESCRIPTION (test f9rotOLsMKCyxEC2FhXdHC code = 3366) Vbx8rvy7JgsLLnlLHdXWwx bWJumyPedj89kOS7hB72IQ 0wUEIlAdG7OWZufgM1Uyy1 OGBuFLZdaORqO457g1yps3 uaziSzgGQ7eIvwXKOqMTCf XLgtFEOrTxItED2sGUdqWG RiRLQnfIDmNDfqKPBmL8Hb luTuZIdnKECiU18ueCHuws HcHTnbkHdkUd7nhWXulY7v zIXaGRubFSX6zEWvNAN4ea BsGUDnHN87AYbhQO15lDAb MLJsNGWzXEOvz43emLM8nV TnrZJoBFXhOkKvGUVrGE89 Ut8fXQXaT91pb0jliNTde2 OvMNGyASlnGI16SXmnOP1k GBCyGYYbOUxpCU82WL7uJD Bbft87sYb3GSU5zWHinJZx p8ooV8jbhEWgIr1dEXwblM MsmYZbYaNXeRWocKN8FBHu vA8qPIHaLJE4WEPeoGhwfT VuBTDeLMfepCTfW8W4hM0g McYqMBGhjxdcPMFoOi1sRT hlIHNwZWNpbWVuIGlzIHJl B1TlarNfSFoePPUrW24ykU QpvqMbFZzlvPnkQd1qdNDr rH9viOTqEJiyHMQ3aGUvLY O0caBaFYBwAG71QQkfTB52 jHEqFFTbYBMeRCFuWj3wVU RoBXb6PPMsezYwy7LlPJ0o LKQaUK95FXcyFLU1JDVlN3 7rLhIpF23aqyIha6VmNq8l CMT4zIMgTAIxaDdbhLnjrd TzNCU8zLezK7FwNZSgv3Xk HHIbL8Fyr05wRMIzmlAlc7 XimWh9iLBhQOfyMDJoFDWg oINiIFDbI9WyX9vphRDddG juxx6qWPQoP0PxTCBjxh1= MICROSCOPIC DESCRIPTION r9qbqOQlMXJigPL2BeGjFW (test code = 3371) Ljz5qir4NasUWesTXvALht iZQndxCrai07dXR1cX12GP 1tBIUdTqG6YJXgboL6Nvc9 IJGcYCXdzGCpK060i6zll4 xykkXklRG2gIhuHOVyCKCe XUstLUEjUsTlSO7KLsWZSO Xje8FiPEDyABmhSTP2 Gross assessment was [facility] performed at ([facility], Department = 2777) of Pathology, [address] [place] [address], Technical component was [facility]. [place] performed at ([facility], = 2778) Department of Pathology, [address] [place] [address], [address] [facility] was performed at ([facility], Department code = 2779) of Pathology, [address] [place] [address], [facility] [id number] 09:25:00 Test Item Value Reference Range Interpretation Comments Case Report (test code Surgical Pathology = 104) Report Case: [id number] Authorizing Provider: Laura Muñiz MD Collected: 09/26/2020 07:56 AM Ordering Location: [address] Med/Surg Received: 09/26/2020 08:55 AM Pathologist: Hilda Mack MD Specimens: A) - Soft Tissue, Debridement, LEFT FOOT BONE CLEAN MARGIN. B) - Bone, LEFT FOOT 5TH METATARSAL HEAD. DIAGNOSIS (test code = d6bmoYWnADNii4prRXWmxV 3220) FuZzEwMzNcZnRuYmpcdWMx IHtccnRmMVxlcGljOTIwMl ykeeQpSMXqtZUoU5Sepyte XKxrZZ0eEU1noSxyyYMwuT YtGUCdCmVxx8nyd482nBYt f9xsKXTGnlvqyDc9hQrmC3 7wl1D5ArjmD53wwQFiCFsp bGFpblxmczIwIEEuIEJPTk WuDJzUPaUjVq2WCQUEQOQX KxAOOKGVBW1qHRBCR2JQTC dtrWHmRNOsMD1oAo0LKVLX KgLmWmwQUc7KD76RDQZBAL NRJJXHC0JWVDswVzNTRPDU TiVhZp9DOZTJDSHGVZ9YPH VPTVlFTElUSVNccGFyXHBh etJAFkDRM55KTFSOHOJSZY FGV4DwWSKURO9FDKTAKQVM MUebONPBGGtlDS2YOCRVIK fFNopgdFSkJAQmJC1qCEFD DHWhET4CFFYOFy6RUVPvO9 NQUW5BKEIZCTDFXpOibYPi gNlnrrMeWVmny2RjGMyyMU DhUE1pnMsmMYBrLG5nEFSn N7znbV6vckk6NcUjUUFdEt A4GBRkwsU6Drl6AIAqLSiv j5bzz0MoEGXnTLf9jEttIh OoAHWda5jgrmYdAwSuSLSk ICUjIBHvaOLiS611m5rxy9 qpsePndMC7DYGoHID9MRzy kpOvadW9QSxfuZEvEbD7OA tccmVkMFxncmVlbjBcYmx1 DRJwH451CWT2nBfck0wbYQ Y5RFMkKSZfWtRqYf4nySPz S660JUPzCHFXAEEebDg9XJ MjkvPvxbAggYSHp823D426 a9sqDTYexnLzgUxIfhuum0 upR045KWKnkCEeakIgPiYs NAKsfSRxoVF2LQCwRM9bfu bjPHouFBjyNMYvyvZ8LGPt mTSvU4IdZQCbUH1adpsvGC B1JFbsZNZzZWJ2CiHrQOKm p9Rsifw5AzYkqq4gcu35GG Y1m0TxaYvxYNQ6NKE2YrJq Xs4qzFHoDCIwJU7wLiXxqF JzWLBoyw04qZjaXHsmFVE6 LPMxkmYxd8Hmm5plLuNomf JmM7tcT6EdOTOhIXPjHWBn NhSxeeHyr8Nks4KniTFivK c5r0okQIZjTHRgqKker8lb NMY1FLGhsFPqP2uyxQ4bJT SrXN6gkfbum9ddVQooQHrk GFTqlFS2vqM8GRCaqRXpP4 AgsO3iPLAnEOlxZVAqahv4 FdLkDu6xkWGqkUwhBNanGl twYWdlXHBnbmNvbnRccGdu ZGVjXHBsYWluXHBsYWluXG YwXGZzMjRccWxcbGFuZzEw MzNcaGljaFxmMVxkYmNoXG YtFGvbR3peFkNgAkAyAdd8 MQTbgHOtIYLgLwu2NFBptX RqNBUFtBtutB9qKYQagLuc iL9ruLT8WCHcejXewXIMzQ 4hDKNUwM6pYpBvPHPvTuQ4 LTcxNjNccGFyfX0= CPT Code(s) (test code g9zvjYCnRCLfyIH4HoUhMT = 3357) Kkt3cdz9LsePQjsDYiAUpp rYQlxgFxov05nLA4xO81FQ 2zVFPqRtO0WCPfzvW7Ukt1 RZJaKDTqcSJyV292t1kks6 gpksDciTL5zJsnSUImWOWk YWluXGZzMjAgODgzMDUgWD OyYTb9CkXbIKhsRAMvui3= CLINICAL HISTORY (test i6qclPRtKOSszOJ5KaYoJV code = 3356) Pnj0fam5JmqOKfjXIzGHtg gXPicaJbsv98qRA3oU99LK 7nVFNpOkR0FNWxebN6Ryj2 LFFmXNDxjIRgW605n4kha2 fwkxPzyVV0pEilYPFmOPBj UVklDBHaYvCrIFztItB9yB VttMnyLUTjq4MrzDWfiZHh h283DRYzb68euMF5ZDCgk0 s3pJQtkRMcHDFwisLiWRmz pLM3fqNdlGSrtD6njA8sXR GeyZoeVwMtm87ayRUzh81o HJZjb3CrF2zauKGdIJVcyt Xfm2XkXq7keMyrcG4vnLZj eFTvRMTxwTvvSJIcj1DnH9 UgXHBhcn0= SPECIMEN SOURCE (test y1lljIKgLAWesYK3UjAvIL code = 3377) Uvo7uff5ClbCCzgSBnNBkl zJBsfwMnlw38hTI0qM60VV 6gPHWdMkH2UTSgbdQ2Jkm0 XBNpQLVokMZjG969c9kpq6 xciaVyzFF2gZglEHIoJURv HKjpAHXtCjAvDP2yQ80gwE L7qJSrjHXxZGGlWsTmRSLa HX78ZdLGGdOUs66yVYbdLS J9 GROSS DESCRIPTION (test n6rhxGMjMGOtiVS4GaBnGO code = 3366) Vyi7urz7AlqIDeaXNqSUtk aFQjnxKjil12hUA0fP96AS 1uACAeJiK5EWDyalQ3Vqt7 FPYgRDHdvFMfL635t3pll9 jpmtStsGC6hSbxZAReUZKa MZgjESHzPoLpSJ8zXSubDW CzBUMpdNVdZPzmKRHuL3Be alTxRCpaJOMpE18pjABnst FsNVvuaOrzHr2czEHjfI2i gPIdHKhdCQF7iBGiRDI1vy DqNLSfKO66EWnlWX37kTWb RBVgBJPhLMLoj30ebBS7eS UltDQzXRXmUrAuMROwFL50 Xk1gRFMxM02gc0ljpKDyc1 AsXJEuDJdiEI40OLbrER5o UIKsZKJyKUsxFH83BU7mOO Hvru32zIs9CNT7qQIfqUKe p1hbX1fyeAWbYv9pOJtfeN IihEGqDaYElZCtdAR0FFFr wP6qYNBfBJO9TGRlqAqqdD ApRUZgUVdtjGDbA9M4dV4g DnRpPZUxouvhGILpVc2aRL hlIHNwZWNpbWVuIGlzIHJl D1TyckZiANsdOPLwP03tdC CaaeIhJPpezZqqPv5qoCJq rL8gtDUcVEiyOTX7jZLxNJ V4iyOnIWEmIO31LOekGV99 dTIpFNRoLVVoDAJmMp2kKT YyPGp2BTJerpQyn7WpBS4p RZDeYB32PZekLYI8NSUgT5 0aOjCiT07itnAyc9MaZz3u ZPN3iWDrYEIwmWuzvNbiqp DmWWB7fOyzV0IyJICqa6Wj IREmQ0Uwp10hHSMajzAee2 JlwPa4cXPnEXmoJONrECXo sOSiXHAmV2KcD1pxsLDljO mrkh9wSZKmS2RsOOFokt8= MICROSCOPIC DESCRIPTION a2pwlAEaKVZowDQ6DwTgTR (test code = 3371) Bcs6vhc4PbwJKbzJBrSNsj mCCjneTyly87oOX0nO06UY 2pLSGqIkR3FRMewhI6Skp3 UYZlCOQyvVPkE735p5luy0 mghwZbwPO2uMqbJCLxJXHz EVsgRYNlGzIcZD2NLpBOBS Bjg8GfJHIzZIsvXUH7 Gross assessment was [facility] performed at ([facility], Department = 2777) of Pathology, [address] [place] [address], Technical component was [facility] performed at ([facility], = 2778) Department of Pathology, [address] [place] [address], Professional component [facility] was performed at ([facility], Department code = 2779) of Pathology, [address] [place] [address], [facility] [id number] 09:25:00Surgical Pathology Report Case: [id number] Authorizing Provider: Laura Muñiz MD Collected: 09/26/2020 07:56 AM Ordering Location: [address] Med/Surg Received: 09/26/2020 08:55 AM Pathologist: Hilda Mack MD Specimens: A) - Soft Tissue, Debridement, LEFT FOOT BONE CLEAN MARGIN. B) -Bone, LEFT FOOT 5TH METATARSAL HEAD. A. BONE, LEFT FOOT CLEAN MARGIN, BIOPSY: - BONE AND FIBROCONNECTIVE TISSUE, NEGATIVE FOR ACUTE OSTEOMYELITISB. BONE, LEFT FOOT 5TH METATARSAL HEAD, AMPUTATION: - ACUTE AND CHRONIC OSTEOMYELITIS Signing Pathologist Direct Phone Line: [phone] signed by Hidla Mack MD on 10/01/2020 at 9:25 [id number] X2, [id number] ulcer of left foot associated with diabetes [...] submitted in B1 after decalcification. [place]/Shyanne-B. Performed. [facility], Department of Pathology, [address] [place] [address], [facility], Department of Pathology, [address] [place] [address], [facility] of [facility], [address] [place] [address], [facility]-Glucose [id number] 12:31:00 Test Item Value Reference Range Interpretation Comments POC-Glucose Meter (test 178 mg/dL 70-110 H : No tified RN/MD: code = 1538) TESTED AT [place] [address] 478: Sole Molder/Techni cornelia ID = [id number] for Salvatore Ramírez Lab Interpretation (test Abnormal code = 43718-3) [facility] [id number] 12:31:00 Test Item Value Reference Range Interpretation Comments POC-Glucose Meter (test 178 mg/dL 70-110 H : No tified RN/MD: code = 1538) TESTED AT [place] [address] 478: Sole Molder/Techni cornelia ID = [id number] for Salvatore Ramírez Lab Interpretation (test Abnormal code = 24792-8) [facility] [id number] 12:31:00 Test Item Value Reference Range Interpretation Comments POC-Glucose Meter (test 178 mg/dL 70-110 H : No tified RN/MD: code = 1538) TESTED AT [place] [address] 478: Sole Molder/Techni cornelia ID = [id number] for Salvatore Ramírez t Lab Interpretation (test Abnormal code = 62959-7) [facility] [id number] 12:31:00 Test Item Value Reference Range Interpretation Comments POC-Glucose Meter (test 178 mg/dL 70-110 H : No tified RN/MD: code = 1538) TESTED AT [place] [address] 478: Sole Molder/Techni cornelia ID = [id number] for GerryxochiltZofiasaúl t Lab Interpretation (test Abnormal code = 97286-2) [facility]-Glucose [id number] 12:31:00 Test Item Value Reference Range Interpretation Comments POC-Glucose Meter (test 178 mg/dL 70-110 H : No tified RN/MD: code = 1538) TESTED AT [place] [address] 478: Sole Molder/Techni cornelia ID = [id number] for Gerryxochilt Salvatore t Lab Interpretation (test Abnormal code = 42413-8) [facility]-Glucose [id number] 12:31:00 Test Item Value Reference Range Interpretation Comments POC-Glucose Meter (test 178 mg/dL 70-110 H : No tified RN/MD: code = 1538) TESTED AT [place] 848458: Sole Molder/Techni cornelia ID = [id number] for Gerryxochilt Salvatore t Lab Interpretation (test Abnormal code = 97674-8) [facility]-Glucose [id number] 12:31:00 Test Item Value Reference Range Interpretation Comments POC-Glucose Meter (test 178 mg/dL 70-110 H : No tified RN/MD: code = 1538) TESTED AT [place] [address] 478: Sole Molder/Techni cornelia ID = [id number] for Gerryxochilt Salvatore t Lab Interpretation (test Abnormal code = 16185-6) [facility]-GLUCOSE [id number] 12:31:00 Test Item Value Reference Range Interpretation Comments POC-GLUCOSE METER 178 mg/dL 70-110 H : Notified RN/MD: TESTED (CECILIO) (test code AT [address] = 1538) [place] [address]: Sole Molder/Techni cornelia ID = [id number] for Salvatore Osbornet Basic Metabolic [id number] 06:00:00 Test Item Value Reference Range Interpretation Comments Sodium (test code = 138 meq/L 001-467 2169-2) Potassium (test code 4.3 meq/L 3.6-5.5 = 2823-3) Chloride (test code 101 meq/L 98-106 = 2075-0) CO2 (test code = 31 meq/L 20-29 H 2027-) BUN (test code = 54 mg/dL 10-26 H 3094-0) Creatinine (test 2.16 mg/dL 0.5-1.2 H code = 2160-0) Glucose (test code = 177 mg/dL 70-110 H 2345-7) Calcium (test code = 8.9 mg/dL 8.5-10.5 69721-5) EGFR (test code = 33 mL/min/1.73 [place] [address]-7) m NOT ACCURATE CREATININE CLEARANCE IN PREDICTING GLOMERULAR FILTRATION RATE . ESTIMATED GFR I S NOT APPLICABLE FOR DIALYSIS PATIENTS. ISSA (test code = Sole Molder ID - ISSA) JBERNOperator ID - JBERNOperator ID - JBERNOperator ID - JBERNOperator ID - JBERNOperator ID - JBERNOperator ID - JBERNOperator ID - JBERNOperator ID - JBERNOperator ID - JBERN Lab Interpretation Abnormal (test code = 91156-6) [facility] Metabolic [id number] 06:00:00 Test Item Value Reference Range Interpretation Comments Sodium (test code = 138 meq/L 004-681 3257-2) Potassium (test code 4.3 meq/L 3.6-5.5 = 2823-3) Chloride (test code 101 meq/L 98-106 = 2075-0) CO2 (test code = 31 meq/L 20-29 H 2027-9) BUN (test code = 54 mg/dL 10-26 H 3094-0) Creatinine (test 2.16 mg/dL 0.5-1.2 H code = 2160-0) Glucose (test code = 177 mg/dL 70-110 H 2345-7) Calcium (test code = 8.9 mg/dL 8.5-10.5 70435-3) EGFR (test code = 33 mL/min/1.[place] [address]-8) m NOT ACCURATE CREATININE CLEARANCE IN PREDICTING GLOMERULAR FILTRATION RATE . ESTIMATED GFR I S NOT APPLICABLE FOR DIALYSIS PATIENTS. ISSA (test code = Sole Molder ID - ISSA) JBERNOperator ID - JBERNOperator ID - JBERNOperator ID - JBERNOperator ID - JBERNOperator ID - JBERNOperator ID - JBERNOperator ID - JBERNOperator ID - JBERNOperator ID - JBERN Lab Interpretation Abnormal (test code = 10058-7) [facility] Metabolic [id number] 06:00:00 Test Item Value Reference Range Interpretation Comments Sodium (test code = 138 meq/L 067-980 3314-2) Potassium (test code 4.3 meq/L 3.6-5.5 = 2823-3) Chloride (test code 101 meq/L 98-106 = 2075-0) CO2 (test code = 31 meq/L 20-29 H 2028-9) BUN (test code = 54 mg/dL 10-26 H 3094-0) Creatinine (test 2.16 mg/dL 0.5-1.2 H code = 2160-0) Glucose (test code = 177 mg/dL 70-110 H 2345-7) Calcium (test code = 8.9 mg/dL 8.5-10.5 10757-7) EGFR (test code = 33 mL/min/1.[place] [address]-0) m NOT ACCURATE CREATININE CLEARANCE IN PREDICTING GLOMERULAR FILTRATION RATE . ESTIMATED GFR I S NOT APPLICABLE FOR DIALYSIS PATIENTS. ISSA (test code = Sole Molder ID - ISSA) JBERNOperator ID - JBERNOperator ID - JBERNOperator ID - JBERNOperator ID - JBERNOperator ID - JBERNOperator ID - JBERNOperator ID - JBERNOperator ID - JBERNOperator ID - JBERN Lab Interpretation Abnormal (test code = 04481-4) [facility] Metabolic [id number] 06:00:00 Test Item Value Reference Range Interpretation Comments Sodium (test code = 138 meq/L 199-634 4237-2) Potassium (test code 4.3 meq/L 3.6-5.5 = 2823-3) Chloride (test code 101 meq/L 98-106 = 2075-0) CO2 (test code = 31 meq/L 20-29 H 2027-) BUN (test code = 54 mg/dL 10-26 H 3094-0) Creatinine (test 2.16 mg/dL 0.5-1.2 H code = 2160-0) Glucose (test code = 177 mg/dL 70-110 H 2345-7) Calcium (test code = 8.9 mg/dL 8.5-10.5 36705-9) EGFR (test code = 33 mL/min/1.[place] [address]-8) m NOT ACCURATE CREATININE CLEARANCE IN PREDICTING GLOMERULAR FILTRATION RATE . ESTIMATED GFR I S NOT APPLICABLE FOR DIALYSIS PATIENTS. ISSA (test code = Sole Molder ID - ISSA) JBERNOperator ID - JBERNOperator ID - JBERNOperator ID - JBERNOperator ID - JBERNOperator ID - JBERNOperator ID - JBERNOperator ID - JBERNOperator ID - JBERNOperator ID - JBERN Lab Interpretation Abnormal (test code = 19979-6) [facility] Metabolic [id number] 06:00:00 Test Item Value Reference Range Interpretation Comments Sodium (test code = 138 meq/L 576-055 3472-2) Potassium (test code 4.3 meq/L 3.6-5.5 = 2823-3) Chloride (test code 101 meq/L 98-106 = 2075-0) CO2 (test code = 31 meq/L 20-29 H 2027-11) BUN (test code = 54 mg/dL 10-26 H 3094-0) Creatinine (test 2.16 mg/dL 0.50-1.20 H code = 2160-0) Glucose (test code = 177 mg/dL 70-110 H 2345-7) Calcium (test code = 8.9 mg/dL 8.5-10.5 00746-6) EGFR (test code = 33 mL/min/1.[place] [address]-2) m NOT ACCURATE CREATININE CLEARANCE IN PREDICTING GLOMERULAR FILTRATION RATE . ESTIMATED GFR I S NOT APPLICABLE FOR DIALYSIS PATIENTS. ISSA (test code = Sole Molder ID - ISSA) JBERNOperator ID - JBERNOperator ID - JBERNOperator ID - JBERNOperator ID - JBERNOperator ID - JBERNOperator ID - JBERNOperator ID - JBERNOperator ID - JBERNOperator ID - JBERN Lab Interpretation Abnormal (test code = 58529-8) [facility] Metabolic [id number] 06:00:00 Test Item Value Reference Range Interpretation Comments Sodium (test code = 138 meq/L 171-665 3597-2) Potassium (test code 4.3 meq/L 3.6-5.5 = 2823-3) Chloride (test code 101 meq/L 98-106 = 2075-0) CO2 (test code = 31 meq/L 20-29 H 2027-) BUN (test code = 54 mg/dL 10-26 H 3094-0) Creatinine (test 2.16 mg/dL 0.50-1.20 H code = 2160-0) Glucose (test code = 177 mg/dL 70-110 H 2345-7) Calcium (test code = 8.9 mg/dL 8.5-10.5 46908-3) EGFR (test code = 33 mL/min/1.[place] [address]-5) m NOT ACCURATE CREATININE CLEARANCE IN PREDICTING GLOMERULAR FILTRATION RATE . ESTIMATED GFR I S NOT APPLICABLE FOR DIALYSIS PATIENTS. ISSA (test code = Sole Molder ID - ISSA) JBERNOperator ID - JBERNOperator ID - JBERNOperator ID - JBERNOperator ID - JBERNOperator ID - JBERNOperator ID - JBERNOperator ID - JBERNOperator ID - JBERNOperator ID - JBERN Lab Interpretation Abnormal (test code = 37251-4) [facility] Metabolic [id number] 06:00:00 Test Item Value Reference Range Interpretation Comments Sodium (test code = 138 meq/L 954-690 8768-2) Potassium (test code 4.3 meq/L 3.6-5.5 = 2823-3) Chloride (test code 101 meq/L 98-106 = 2075-0) CO2 (test code = 31 meq/L 20-29 H 2028-9) BUN (test code = 54 mg/dL 10-26 H 3094-0) Creatinine (test 2.16 mg/dL 0.50-1.20 H code = 2160-0) Glucose (test code = 177 mg/dL 70-110 H 2345-7) Calcium (test code = 8.9 mg/dL 8.5-10.5 86621-1) EGFR (test code = 33 mL/min/1.[place] [address]-4) m NOT ACCURATE CREATININE CLEARANCE IN PREDICTING GLOMERULAR FILTRATION RATE . ESTIMATED GFR I S NOT APPLICABLE FOR DIALYSIS PATIENTS. ISSA (test code = Sole Molder ID - ISSA) JBERNOperator ID - JBERNOperator ID - JBERNOperator ID - JBERNOperator ID - JBERNOperator ID - JBERNOperator ID - JBERNOperator ID - JBERNOperator ID - JBERNOperator ID - JBERN Lab Interpretation Abnormal (test code = 98420-2) [facility] METABOLIC [id number] 06:00:00 Test Item Value Reference Range Interpretation [...] S NOT APPLICABLE FOR DIALYSIS PATIEN TS. Sole Molder ID - JBERNOperator ID - JBERNOperator ID - JBERNOperator ID - JBERNOperator ID - JBERNOperator ID - JBERNOperator ID - JBERNOperator ID - JBERNOperator ID - JBERNOperator ID - [id number] 05:42:00 Test Item Value Reference Range Interpretation Comments Magnesium (test code = 2.2 mg/dL 1.5-3 66233-8) ISSA (test code = ISSA) Sole Molder ID - JBERNOperator ID - JBERNOperator ID - JBERNOperator ID - JBERN Lab Interpretation Normal (test code = 02084-5) [facility]2021-07-04 05:42:00 Test Item Value Reference Range Interpretation Comments Magnesium (test code = 2.2 mg/dL 1.5-3 99149-6) ISSA (test code = ISSA) Sole Molder ID - JBERNOperator ID - JBERNOperator ID - JBERNOperator ID - JBERN Lab Interpretation Normal (test code = 15252-9) [facility]2021-07-04 05:42:00 Test Item Value Reference Range Interpretation Comments Magnesium (test code = 2.2 mg/dL 1.5-3 55621-4) ISSA (test code = ISSA) Sole Molder ID - JBERNOperator ID - JBERNOperator ID - JBERNOperator ID - JBERN Lab Interpretation Normal (test code = 22524-4) [facility]2021-07-04 05:42:00 Test Item Value Reference Range Interpretation Comments Magnesium (test code = 2.2 mg/dL 1.5-3 83709-6) ISSA (test code = ISSA) Sole Molder ID - JBERNOperator ID - JBERNOperator ID - JBERNOperator ID - JBERN Lab Interpretation Normal (test code = 16431-5) [facility]2021-07-04 05:42:00 Test Item Value Reference Range Interpretation Comments Magnesium (test code = 2.2 mg/dL 1.5-3.0 09197-1) ISSA (test code = ISSA) Sole Molder ID - JBERNOperator ID - JBERNOperator ID - JBERNOperator ID - JBERN Lab Interpretation Normal (test code = 33687-4) [facility] 05:42:00 Test Item Value Reference Range Interpretation Comments Magnesium (test code = 2.2 mg/dL 1.5-3.0 88972-3) ISSA (test code = ISSA) Sole Molder ID - JBERNOperator ID - JBERNOperator ID - JBERNOperator ID - JBERN Lab Interpretation Normal (test code = 87958-9) [facility] 05:42:00 Test Item Value Reference Range Interpretation Comments Magnesium (test code = 2.2 mg/dL 1.5-3.0 66135-9) ISSA (test code = ISSA) Sole Molder ID - JBERNOperator ID - JBERNOperator ID - JBERNOperator ID - JBERN Lab Interpretation Normal (test code = 76945-2) [facility]2021-07-04 05:42:00 Test Item Value Reference Range Interpretation Comments MAGNESIUM (BEAKER) (test code = 2.2 mg/dL 1.5-3.0 627) Sole Molder ID - JBERNOperator ID - JBERNOperator ID - JBERNOperator ID - JBERNCBC with platelet count + automated [id number] 05:17:00 Test Item Value Reference Range Interpretation Comments WBC (test code = 6690-2) 7.6 See_Comment [A utomated message] The system Register[employer] generated this result transmitted ref erence range: 4.0 - 10 .0 K/L. The refe rence range was not u sed to interpret this result as normal/abnor mal. RBC (test code = 789-8) 3.54 See_Comment L [Au tomated message] The system [employer] generated this result transmitted ref erence range: 4.20 - 5 .80 M/L. The refe rence range was not u sed to interpret this result as normal/abnor mal. MCHC (test code = 786-4) 31.0 See_Comment L [A utomated message] The system [employer] generated this result transmitted ref erence range: [...] See_Comment [Aut omated message] 777-3) The system [employer] generated this result transmitted ref erence range: 150 - 43 0 K/CU MM. The referen ce range was not u sed to interpret this result as normal/abnor mal. MPV (test code = 11.1 fL 6-11.5 20863-5) nRBC (test code = 413) 0 See_Comment [Aut omated message] The system [employer] generated this result transmitted ref erence range: [...] See_Comment [Aut omated message] 670) The system [employer] generated this result transmitted ref erence range: 1.80 - 8 .00 K/L. The refe rence range was not u sed to interpret this result as normal/abnor mal. # Lymphs (test code = 0.97 See_Comment L [Auto mated message] 414) The system Register[employer] generated this result transmitted ref erence range: 1.48 - 4 .50 K/L. The refe rence range was not u sed to interpret this result as normal/abnor mal. # Monos (test code = 0.74 See_Comment [Autom ated message] 415) The system [employer] generated this result transmitted ref erence range: 0.00 - 1 .30 K/L. The refe rence range was not u sed to interpret this result as normal/abnor mal. # Eos (test code = 416) 0.21 See_Comment [Au tomated message] The system [facility] generated this result transmitted ref erence range: 0.00 - 0 .50 K/L. The refe rence range was not u sed to interpret this result as normal/abnor mal. # Baso (test code = 417) 0.05 See_Comment [A utomated message] The system [facility] generated this result transmitted ref erence range: 0.00 - 0 .20 K/L. The refe rence range was not u sed to interpret this result as normal/abnor mal. Immature 1 % 0-0 H Granulocytes-Relative (test code = 2801) Lab Interpretation (test Abnormal code = 35105-4) [facility] with platelet count + automated [id number] 05:17:00 Test Item Value Reference Range Interpretation Comments WBC (test code = 6690-2) 7.6 See_Comment [A utomated message] The system [facility] generated this result transmitted ref erence range: 4.0 - 10 .0 K/L. The refe rence range was not u sed to interpret this result as normal/abnor mal. RBC (test code = 789-8) 3.54 See_Comment L [Au tomated message] The system [facility] generated this result transmitted ref erence range: 4.20 - 5 .80 M/L. The refe rence range was not u sed to interpret this result as normal/abnor mal. MCHC (test code = 786-4) 31.0 See_Comment L [A utomated message] The system [facility] generated this result transmitted ref erence range: [...] code = 230 See_Comment [Aut omated message] 077-3) The system [facility] generated this result transmitted ref erence range: 150 - 43 0 K/CU MM. The referen ce range was not u sed to interpret this result as normal/abnor mal. MPV (test code = 11.1 fL 6-11.5 23354-5) nRBC (test code = 413) 0 See_Comment [Aut omated message] The system [facility] generated this result transmitted ref erence range: [...] See_Comment [Aut omated message] 670) The system [facility] generated this result transmitted ref erence range: 1.80 - 8 .00 K/L. The refe rence range was not u sed to interpret this result as normal/abnor mal. # Lymphs (test code = 0.97 See_Comment L [Auto mated message] 414) The system [facility] generated this result transmitted ref erence range: 1.48 - 4 .50 K/L. The refe rence range was not u sed to interpret this result as normal/abnor mal. # Monos (test code = 0.74 See_Comment [Autom ated message] 415) The system [facility] generated this result transmitted ref erence range: 0.00 - 1 .30 K/L. The refe rence range was not u sed to interpret this result as normal/abnor mal. # Eos (test code = 416) 0.21 See_Comment [Au tomated message] The system [facility] generated this result transmitted ref erence range: 0.00 - 0 .50 K/L. The refe rence range was not u sed to interpret this result as normal/abnor mal. # Baso (test code = 417) 0.05 See_Comment [A utomated message] The system [facility] generated this result transmitted ref erence range: 0.00 - 0 .20 K/L. The refe rence range was not u sed to interpret this result as normal/abnor mal. Immature 1 % 0-0 H Granulocytes-Relative (test code = 2801) Lab Interpretation (test Abnormal code = 29975-7) [facility] with platelet count + automated [id number] 05:17:00 Test Item Value Reference Range Interpretation Comments WBC (test code = 6690-2) 7.6 See_Comment [A utomated message] The system [facility] generated this result transmitted ref erence range: 4.0 - 10 .0 K/L. The refe rence range was not u sed to interpret this result as normal/abnor mal. RBC (test code = 789-8) 3.54 See_Comment L [Au tomated message] The system [facility] generated this result transmitted ref erence range: 4.20 - 5 .80 M/L. The refe rence range was not u sed to interpret this result as normal/abnor mal. MCHC (test code = 786-4) 31.0 See_Comment L [A utomated message] The system RegisterPatient generated this result transmitted ref erence range: [...] See_Comment [Aut omated message] 777-3) The system RegisterPatient generated this result transmitted ref erence range: 150 - 43 0 K/CU MM. The referen ce range was not u sed to interpret this result as normal/abnor mal. MPV (test code = 11.1 fL 6-11.5 53646-3) nRBC (test code = 413) 0 See_Comment [Aut omated message] The system Troodon generated this result transmitted ref erence range: [...] See_Comment [Aut omated message] 670) The system RegisterPatient generated this result transmitted ref erence range: 1.80 - 8 .00 K/L. The refe rence range was not u sed to interpret this result as normal/abnor mal. # Lymphs (test code = 0.97 See_Comment L [Auto mated message] 414) The system RegisterPatient generated this result transmitted ref erence range: 1.48 - 4 .50 K/L. The refe rence range was not u sed to interpret this result as normal/abnor mal. # Monos (test code = 0.74 See_Comment [Autom ated message] 415) The system RegisterPatient generated this result transmitted ref erence range: 0.00 - 1 .30 K/L. The refe rence range was not u sed to interpret this result as normal/abnor mal. # Eos (test code = 416) 0.21 See_Comment [Au tomated message] The system RegisterPatient generated this result transmitted ref erence range: 0.00 - 0 .50 K/L. The refe rence range was not u sed to interpret this result as normal/abnor mal. # Baso (test code = 417) 0.05 See_Comment [A utomated message] The system RegisterPatient generated this result transmitted ref erence range: 0.00 - 0 .20 K/L. The refe rence range was not u sed to interpret this result as normal/abnor mal. Immature 1 % 0-0 H Granulocytes-Relative (test code = 2801) Lab Interpretation (test Abnormal code = 95033-5) [facility] with platelet count + automated [id number] 05:17:00 Test Item Value Reference Range Interpretation Comments WBC (test code = 6690-2) 7.6 See_Comment [A utomated message] The system RegisterPatient generated this result transmitted ref erence range: 4.0 - 10 .0 K/L. The refe rence range was not u sed to interpret this result as normal/abnor mal. RBC (test code = 789-8) 3.54 See_Comment L [Au tomated message] The system Troodon generated this result transmitted ref erence range: 4.20 - 5 .80 M/L. The refe rence range was not u sed to interpret this result as normal/abnor mal. MCHC (test code = 786-4) 31.0 See_Comment L [A utomated message] The system RegisterPatient generated this result transmitted ref erence range: [...] See_Comment [Aut omated message] 777-3) The system RegisterPatient generated this result transmitted ref erence range: 150 - 43 0 K/CU MM. The referen ce range was not u sed to interpret this result as normal/abnor mal. MPV (test code = 11.1 fL 6-11.5 59261-9) nRBC (test code = 413) 0 See_Comment [Aut omated message] The system RegisterPatient generated this result transmitted ref erence range: [...] See_Comment [Aut omated message] 670) The system RegisterPatient generated this result transmitted ref erence range: 1.80 - 8 .00 K/L. The refe rence range was not u sed to interpret this result as normal/abnor mal. # Lymphs (test code = 0.97 See_Comment L [Auto mated message] 414) The system RegisterPatient generated this result transmitted ref erence range: 1.48 - 4 .50 K/L. The refe rence range was not u sed to interpret this result as normal/abnor mal. # Monos (test code = 0.74 See_Comment [Autom ated message] 415) The system RegisterPatient generated this result transmitted ref erence range: 0.00 - 1 .30 K/L. The refe rence range was not u sed to interpret this result as normal/abnor mal. # Eos (test code = 416) 0.21 See_Comment [Au tomated message] The system RegisterPatient generated this result transmitted ref erence range: 0.00 - 0 .50 K/L. The refe rence range was not u sed to interpret this result as normal/abnor mal. # Baso (test code = 417) 0.05 See_Comment [A utomated message] The system RegisterPatient generated this result transmitted ref erence range: 0.00 - 0 .20 K/L. The refe rence range was not u sed to interpret this result as normal/abnor mal. Immature 1 % 0-0 H Granulocytes-Relative (test code = 2801) Lab Interpretation (test Abnormal code = 86209-1) [facility] with platelet count + automated [id number] 05:17:00 Test Item Value Reference Range Interpretation Comments WBC (test code = 6690-2) 7.6 See_Comment [A utomated message] The system RegisterPatient generated this result transmitted ref erence range: 4.0 - 10 .0 K/L. The refe rence range was not u sed to interpret this result as normal/abnor mal. RBC (test code = 789-8) 3.54 See_Comment L [Au tomated message] The system RegisterPatient generated this result transmitted ref erence range: 4.20 - 5 .80 M/L. The refe rence range was not u sed to interpret this result as normal/abnor mal. MCHC (test code = 786-4) 31.0 See_Comment L [A utomated message] The system RegisterPatient generated this result transmitted ref erence range: [...] See_Comment [Aut omated message] 777-3) The system RegisterPatient generated this result transmitted ref erence range: 150 - 43 0 K/CU MM. The referen ce range was not u sed to interpret this result as normal/abnor mal. MPV (test code = 11.1 fL 6.0-11.5 17349-7) nRBC (test code = 413) 0 See_Comment [Aut omated message] The system RegisterPatient generated this result transmitted ref erence range: [...] See_Comment [Aut omated message] 670) The system RegisterPatient generated this result transmitted ref erence range: 1.80 - 8 .00 K/L. The refe rence range was not u sed to interpret this result as normal/abnor mal. # Lymphs (test code = 0.97 See_Comment L [Auto mated message] 414) The system RegisterPatient generated this result transmitted ref erence range: 1.48 - 4 .50 K/L. The refe rence range was not u sed to interpret this result as normal/abnor mal. # Monos (test code = 0.74 See_Comment [Autom ated message] 415) The system RegisterPatient generated this result transmitted ref erence range: 0.00 - 1 .30 K/L. The refe rence range was not u sed to interpret this result as normal/abnor mal. # Eos (test code = 416) 0.21 See_Comment [Au tomated message] The system RegisterPatient generated this result transmitted ref erence range: 0.00 - 0 .50 K/L. The refe rence range was not u sed to interpret this result as normal/abnor mal. # Baso (test code = 417) 0.05 See_Comment [A utomated message] The system RegisterPatient generated this result transmitted ref erence range: 0.00 - 0 .20 K/L. The refe rence range was not u sed to interpret this result as normal/abnor mal. Immature 1 % 0-0 H Granulocytes-Relative (test code = 2801) Lab Interpretation (test Abnormal code = 14169-1) [facility] with platelet count + automated [id number] 05:17:00 Test Item Value Reference Range Interpretation Comments WBC (test code = 6690-2) 7.6 See_Comment [A utomated message] The system RegisterPatient generated this result transmitted ref erence range: 4.0 - 10 .0 K/L. The refe rence range was not u sed to interpret this result as normal/abnor mal. RBC (test code = 789-8) 3.54 See_Comment L [Au tomated message] The system RegisterPatient generated this result transmitted ref erence range: 4.20 - 5 .80 M/L. The refe rence range was not u sed to interpret this result as normal/abnor mal. MCHC (test code = 786-4) 31.0 See_Comment L [A utomated message] The system RegisterPatient generated this result transmitted ref erence range: [...] See_Comment [Aut omated message] 777-3) The system RegisterPatient generated this result transmitted ref erence range: 150 - 43 0 K/CU MM. The referen ce range was not u sed to interpret this result as normal/abnor mal. MPV (test code = 11.1 fL 6.0-11.5 04142-2) nRBC (test code = 413) 0 See_Comment [Aut omated message] The system RegisterPatient generated this result transmitted ref erence range: [...] See_Comment [Aut omated message] 670) The system RegisterPatient generated this result transmitted ref erence range: 1.80 - 8 .00 K/L. The refe rence range was not u sed to interpret this result as normal/abnor mal. # Lymphs (test code = 0.97 See_Comment L [Auto mated message] 414) The system RegisterPatient generated this result transmitted ref erence range: 1.48 - 4 .50 K/L. The refe rence range was not u sed to interpret this result as normal/abnor mal. # Monos (test code = 0.74 See_Comment [Autom ated message] 415) The system RegisterPatient generated this result transmitted ref erence range: 0.00 - 1 .30 K/L. The refe rence range was not u sed to interpret this result as normal/abnor mal. # Eos (test code = 416) 0.21 See_Comment [Au tomated message] The system RegisterPatient generated this result transmitted ref erence range: 0.00 - 0 .50 K/L. The refe rence range was not u sed to interpret this result as normal/abnor mal. # Baso (test code = 417) 0.05 See_Comment [A utomated message] The system RegisterPatient generated this result transmitted ref erence range: 0.00 - 0 .20 K/L. The refe rence range was not u sed to interpret this result as normal/abnor mal. Immature 1 % 0-0 H Granulocytes-Relative (test code = 2801) Lab Interpretation (test Abnormal code = 22420-6) [facility] with platelet count + automated [id number] 05:17:00 Test Item Value Reference Range Interpretation Comments WBC (test code = 6690-2) 7.6 See_Comment [A utomated message] The system RegisterPatient generated this result transmitted ref erence range: 4.0 - 10 .0 K/L. The refe rence range was not u sed to interpret this result as normal/abnor mal. RBC (test code = 789-8) 3.54 See_Comment L [Au tomated message] The system RegisterPatient generated this result transmitted ref erence range: 4.20 - 5 .80 M/L. The refe rence range was not u sed to interpret this result as normal/abnor mal. MCHC (test code = 786-4) 31.0 See_Comment L [A utomated message] The system RegisterPatient generated this result transmitted ref erence range: [...] code = 230 See_Comment [Aut omated message] 877-3) The system RegisterPatient generated this result transmitted ref erence range: 150 - 43 0 K/CU MM. The referen ce range was not u sed to interpret this result as normal/abnor mal. MPV (test code = 11.1 fL 6.0-11.5 66710-9) nRBC (test code = 413) 0 See_Comment [Aut omated message] The system RegisterPatient generated this result transmitted ref erence range: [...] See_Comment [Aut omated message] 670) The system RegisterPatient generated this result transmitted ref erence range: 1.80 - 8 .00 K/L. The refe rence range was not u sed to interpret this result as normal/abnor mal. # Lymphs (test code = 0.97 See_Comment L [Auto mated message] 414) The system RegisterPatient generated this result transmitted ref erence range: 1.48 - 4 .50 K/L. The refe rence range was not u sed to interpret this result as normal/abnor mal. # Monos (test code = 0.74 See_Comment [Autom ated message] 415) The system RegisterPatient generated this result transmitted ref erence range: 0.00 - 1 .30 K/L. The refe rence range was not u sed to interpret this result as normal/abnor mal. # Eos (test code = 416) 0.21 See_Comment [Au tomated message] The system RegisterPatient generated this result transmitted ref erence range: 0.00 - 0 .50 K/L. The refe rence range was not u sed to interpret this result as normal/abnor mal. # Baso (test code = 417) 0.05 See_Comment [A utomated message] The system RegisterPatient generated this result transmitted ref erence range: 0.00 - 0 .20 K/L. The refe rence range was not u sed to interpret this result as normal/abnor mal. Immature 1 % 0-0 H Granulocytes-Relative (test code = 2801) Lab Interpretation (test Abnormal code = 58906-4) [facility] W/PLT COUNT & AUTO [id number] 05:17:00 Test Item Value Reference Range Interpretation [...] (test code = 416) BASOPHILS ABSOLUTE COUNT (AKER) 0.05 K/ L 0.00-0.20 (test code = 417) IMMATURE GRANULOCYTES-RELATIVE 1 % 0-0 H PERCENT (BEAKER) (test code = 2801) POCT-GLUCOSE [id number] 13:00:00 Test Item Value Reference Range Interpretation Comments POC-GLUCOSE METER 114 mg/dL 70-110 H : Notified RN/MD: TESTED (BEAKER) (test code AT [facility] [address] = 1538) [facility] [address]: Sole Molder/Techni cornelia ID = [id number] for Cony Osborne ANAEROBIC [id number] 09:52:00 Test Item Value Reference Range Interpretation Comments CULTURE ([facility]) (test No anaerobes isolated code = 1095) Anaerobic [id number] 09:51:00 Test Item Value Reference Range Interpretation Comments Result (test code = No anaerobes isolated 6463-4) [facility] [id number] 09:51:00 Test Item Value Reference Range Interpretation Comments Result (test code = No anaerobes isolated 6463-4) [facility] [id number] 09:51:00 Test Item Value Reference Range Interpretation Comments Result (test code = No anaerobes isolated 6463-4) [facility] [id number] 09:51:00 Test Item Value Reference Range Interpretation Comments Result (test code = No anaerobes isolated 6463-4) [facility] [id number] 09:51:00 Test Item Value Reference Range Interpretation Comments Result (test code = No anaerobes isolated 6463-4) [facility] [id number] 09:51:00 Test Item Value Reference Range Interpretation Comments Result (test code = No anaerobes isolated 6463-4) [facility] [id number] 09:51:00 Test Item Value Reference Range Interpretation Comments Result (test code = No anaerobes isolated 6463-4) [facility] [id number] 09:51:00 Test Item Value Reference Range Interpretation Comments CULTURE (BEAKER) (test No anaerobes isolated code = 1095) BASIC METABOLIC [id number] 06:34:00 Test Item Value Reference Range Interpretation [...] S NOT APPLICABLE FOR DIALYSIS PATIEN TS. Sole Molder ID - [id number] ID - [id number] ID - [id number] ID - [id number] ID - [id number] ID - [id number] ID - [id number] ID - [id number] ID - [id number] ID - [id number]- GLUCOSE [id number] 06:13:00 Test Item Value Reference Range Interpretation Comments POC-GLUCOSE METER 95 mg/dL 70-110 : TESTED A T [facility] [address] (BEAKER) (test code = [address], [address]) [facility] [address]: Sole Molder/Techni cornelia ID = [id number] for Agustina Harrison [id number] 05:36:00 Test Item Value Reference Range Interpretation Comments MAGNESIUM (BEAKER) (test code = 1.9 mg/dL 1.5-3.0 627) Sole Molder ID - [id number] ID - [id number] ID - [id number] ID - [id number] W/PLT COUNT & AUTO [id number] 05:21:00 Test Item Value Reference Range Interpretation [...] PERCENT (BEAKER) (test code = 2801) POCT-GLUCOSE [id number] 21:10:00 Test Item Value Reference Range Interpretation Comments POC-GLUCOSE METER 137 mg/dL 70-110 H : TESTED A T [facility] [address] (BEAKER) (test code [facility], = 1538) [place] [address]: Sole Molder/Techni cornelia ID = [id number] for Agustina Harrison POCT-GLUCOSE [id number] 19:19:00 Test Item Value Reference Range Interpretation Comments POC-GLUCOSE METER 119 mg/dL 70-110 H : TESTED A T [facility] [address] (BEAKER) (test code [facility], = 1538) [place] [address]: Sole Molder/Techni cornelia ID = [id number] for Adrienne r, Heidy POCT-GLUCOSE [id number] 12:43:00 Test Item Value Reference Range Interpretation Comments POC-GLUCOSE METER 126 mg/dL 70-110 H : TESTED A T [facility] [address] (BEAKER) (test code [facility], = 1538) [place] [address]: Sole Molder/Techni cornelia ID = [id number] for Adrienne r, Heidy POCT-GLUCOSE [id number] 06:47:00 Test Item Value Reference Range Interpretation Comments POC-GLUCOSE METER 132 mg/dL 70-110 H : TESTED A T [facility] [address] (BEAKER) (test code [facility], = 1538) [place] [address]: Sole Molder/Techni cornelia ID = [id number] for Zackary Bustamante si BASIC METABOLIC [id number] 04:59:00 Test Item Value Reference Range Interpretation [...] S NOT APPLICABLE FOR DIALYSIS PATIEN TS. Sole Molder ID - [id number] ID - [id number] ID - [id number] ID - [id number] ID - [id number] ID - [id number] ID - [id number] ID - hnja83Dzifzevx ID - [id number] ID - [id number] 04:44:00 Test Item Value Reference Range Interpretation Comments MAGNESIUM (BEAKER) (test code = 2.0 mg/dL 1.5-3.0 627) Sole Molder ID - [id number] ID - [id number] ID - [id number] ID - [id number] CBC W/PLT COUNT & AUTO [id number] 04:30:00 Test Item Value Reference Range Interpretation [...] PERCENT (BEAKER) (test code = 2801) POCT-GLUCOSE [id number] 23:23:00 Test Item Value Reference Range Interpretation Comments POC-GLUCOSE METER 156 mg/dL 70-110 H : TESTED A T [facility] [address] (BEAKER) (test code [facility] [address] [facility], = 1538) [place] [address]: Sole Molder/Techni cornelia ID = [id number] for Zackary Bustamante si POCT-GLUCOSE [id number] 18:35:00 Test Item Value Reference Range Interpretation Comments POC-GLUCOSE METER 137 mg/dL 70-110 H : TESTED A T [facility] [address] (BEAKER) (test code [facility] [address] [facility], = 1538) [place] [address]: Sole Molder/Techni cornelia ID = [id number] for Heidy Martin POCT-GLUCOSE [id number] 13:42:00 Test Item Value Reference Range Interpretation Comments POC-GLUCOSE METER 109 mg/dL 70-110 : TESTED A T [facility] [address] (BEAKER) (test code [address], = 1538) [facility] [address]: Sole Molder/Techni cornelia ID = [id number] for Heidy Martin RAD, FOOT, MIN 3 VIEWS, [id number] 09:06:00Reason for exam:->s/p 5th metatarsal head [facility] 1975 Sex: MFINAL [...] Unremarkable postoperative left foot. Signed: Jerad Gleason MDReport Verified Date/Time: 09/26/2020 09:06:00 Reading Location: [facility] Radiology Reading Room XR foot 3 views [id number] 09:06:00 Interface, External Ris In - 09/26/2020 [...] Gleason Verified Date/Time: 09/26/2020 09:06:00 Reading Location: [facility] [id number] 09:06:00Interface, External Ris In - 09/26/2020 9:08 [...] Gleason Verified Date/Time: 09/26/2020 09:06:00 Reading Location: [facility] [id number] 09:06:00Interface, External Ris In - 09/26/2020 9:08 [...] Gleason Verified Date/Time: 09/26/2020 09:06:00 Reading Location: [facility] Radiology [facility] [id number] 09:06:00Interface, External Ris In - 09/26/2020 9:08 [...] 1. Unremarkable postoperative left foot. Signed: Jerad Gleasoneport Verified Date/Time: 09/26/2020 09:06:00 Reading Location: [facility] Radiology [facility] [id number] 08:47:00 Test Item Value Reference Range Interpretation Comments POC-GLUCOSE METER 134 mg/dL 70-110 H : Notified RN/MD: TESTED (BEAKER) (test code AT [facility] [address] [place] [address] = 1538) [facility] [address]: Sole Molder/Techni cornelia ID = [id number] for Marzena Ponce BASIC METABOLIC [id number] 06:13:00 Test Item Value Reference Range Interpretation [...] S NOT APPLICABLE FOR DIALYSIS PATIEN TS. Sole Molder ID - [id number] ID - [id number] ID - [id number] ID - [id number] ID - [id number] ID - [id number] ID - [id number] ID - [id number] ID - cgbh94Aaosljbr ID - [id number] 06:08:00 Test Item Value Reference Range Interpretation Comments MAGNESIUM (BEAKER) (test code = 2.2 mg/dL 1.5-3.0 627) Sole Molder ID - [id number] ID - [id number] ID - [id number] ID - [id number] B-type Natriuretic Factor (BNP)2020-09-26 06:01:00 Test Item Value Reference Range Interpretation Comments BNP (test code = 42884-4) 929 pg/mL 0-100 H ISSA (test code = ISSA) Sole Molder ID - [id number] Lab Interpretation (test Abnormal code = 39846-5) [facility] 06:01:00 Test Item Value Reference Range Interpretation Comments BNP (test code = 91449-0) 929 pg/mL 0-100 H ISSA (test code = ISSA) Sole Molder ID - [id number] Lab Interpretation (test Abnormal code = 56585-5) [facility]2020-09-26 06:01:00 Test Item Value Reference Range Interpretation Comments BNP (test code = 58365-7) 929 pg/mL 0-100 H ISSA (test code = ISSA) Sole Molder ID - [id number] Lab Interpretation (test Abnormal code = 45344-3) [facility]2020-09-26 06:01:00 Test Item Value Reference Range Interpretation Comments BNP (test code = 71096-1) 929 pg/mL 0-100 H ISSA (test code = ISSA) Sole Molder ID - [id number] Lab Interpretation (test Abnormal code = 96831-2) [facility]2020-09-26 06:01:00 Test Item Value Reference Range Interpretation Comments BNP (test code = 46934-4) 929 pg/mL 0-100 H ISSA (test code = ISSA) Sole Molder ID - [id number] Lab Interpretation (test Abnormal code = 34200-7) [facility]2020-09-26 06:01:00 Test Item Value Reference Range Interpretation Comments BNP (test code = 47265-9) 929 pg/mL 0-100 H ISSA (test code = ISSA) Sole Molder ID - [id number] Lab Interpretation (test Abnormal code = 12403-7) [facility]2020-09-26 06:01:00 Test Item Value Reference Range Interpretation Comments BNP (test code = 44342-1) 929 pg/mL 0-100 H ISSA (test code = ISSA) Sole Molder ID - [id number] Lab Interpretation (test Abnormal code = 53758-7) [facility] (BNP)2020-09-26 06:01:00 Test Item Value Reference Range Interpretation Comments B-TYPE NATRIURETIC PEPTIDE (BEAKER) 929 pg/mL 0-100 H (test code = 700) Sole Molder ID - [id number] W/PLT COUNT & AUTO [id number] 05:44:00 Test Item Value Reference Range Interpretation [...] PERCENT (BEAKER) (test code = 2801) POCT-GLUCOSE [id number] 21:22:00 Test Item Value Reference Range Interpretation Comments POC-GLUCOSE METER 162 mg/dL 70-110 H : TESTED A T [facility] [address] (BEAKER) (test code [facility], = 1538) [place] [address]: Sole Molder/Techni cornelia ID = [id number] for Saumya Harrisona POCT-GLUCOSE [id number] 16:27:00 Test Item Value Reference Range Interpretation Comments POC-GLUCOSE METER 151 mg/dL 70-110 H : TESTED A T [facility] [address] (BEAKER) (test code [facility], = 1538) [place] [address]: Sole Molder/Techni cornelia ID = [id number] for Zoltan Gamble POCT-GLUCOSE [id number] 11:32:00 Test Item Value Reference Range Interpretation Comments POC-GLUCOSE METER 104 mg/dL 70-110 : TESTED A T [facility] [address] (BEAKER) (test code [address], = 1538) [place] [address]: Sole Molder/Techni cornelia ID = [id number] for Zoltan Gamble POCT-GLUCOSE [id number] 06:17:00 Test Item Value Reference Range Interpretation Comments POC-GLUCOSE METER 112 mg/dL 70-110 H : TESTED A T [facility] [address] (BEAKER) (test code [address], = 1538) [place] [address]: Sole Molder/Techni cornelia ID = [id number] for Lani Kat [id number] 05:39:00 Test Item Value Reference Range Interpretation Comments MAGNESIUM (BEAKER) (test code = 1.9 mg/dL 1.5-3.0 627) Sole Molder ID - LITOOperator ID - LITOOperator ID - LITOOperator ID - LITOBASIC METABOLIC [id number] 05:38:00 Test Item Value Reference Range Interpretation [...] S NOT APPLICABLE FOR DIALYSIS PATIEN TS. Sole Molder ID - LITOOperator ID - LITOOperator ID - LITOOperator ID - LITOOperator ID - LITOOperator ID - LITOOperator ID - LITOOperator ID - LITOOperator ID - LITOOperator ID - LITOCBC W/PLT COUNT & AUTO [id number] 05:20:00 Test Item Value Reference Range Interpretation [...] PERCENT (BEAKER) (test code = 2801) POCT-GLUCOSE [id number] 20:48:00 Test Item Value Reference Range Interpretation Comments POC-GLUCOSE METER 167 mg/dL 70-110 H : TESTED A T [address] (BEAKER) (test code [address], = 1538) [place] [address]: Sole Molder/Techni cornelia ID = [id number] for Lani Kat POCT-GLUCOSE [id number] 17:48:00 Test Item Value Reference Range Interpretation Comments POC-GLUCOSE METER 260 mg/dL 70-110 H : TESTED A T [address] (BEAKER) (test code [address], = 1538) [place] [address]: Sole Molder/Techni cornelia ID = [id number] for Heidy Martin ARTERIAL DOPPLER LEGS, [id number] 13:42:00Reason for exam:- >[facility]omyel[facility] left [facility] 1975 Sex: MFINAL [...] Ortiz Verified Date/Time: 09/24/2020 13:42:37 Reading Location: [facility] Radiology Reading Room Arterial Doppler Legs [id number] 13:42:00Interface, External Ris In - 09/24/2020 1:44 [...] Ortiz Verified Date/Time: 09/24/2020 13:42:37 Reading Location: [facility] Radiology Reading Room [facility] Pucyiivmu9274-30-45 13:42:00Interface, External Ris In - 09/24/2020 1:44 [...] Ortiz Verified Date/Time: 09/24/2020 13:42:37 Reading Location: [facility] Radiology Reading Room [facility] Leg[facility] Zpkfiltak4315-63-02 13:42:00Interface, External Ris In - 09/24/2020 1:44 [...] Ortiz Verified Date/Time: 09/24/2020 13:42:37 Reading Location: [facility] Radiology Reading Room [facility] Leg[facility] Aqgxscqsh3550-96-03 13:42:00Interface, External Ris In - 09/24/2020 1:44 [...] MDReport Verified Date/Time: 09/24/2020 13:42:37 Reading Location: [facility] Radiology Reading Room [facility] HospitalU[facility] Nitrogen, random [id number] 10:42:00 Test Item Value Reference Range Interpretation Comments Urea Nitrogen, Ur 236 mg/dL (test code = 3095-7) ISSA (test code = Reference Range: No ISSA) NormalsOperator ID - [facility] [id number] 10:42:00 Test Item Value Reference Range Interpretation Comments Urea Nitrogen, Ur 236 mg/dL (test code = 3095-7) ISSA (test code = Reference Range: No ISSA) NormalsOperator ID - [facility], random [id number] 10:42:00 Test Item Value Reference Range Interpretation Comments Urea Nitrogen, Ur 236 mg/dL (test code = 3095-7) ISSA (test code = Reference Range: No ISSA) NormalsOperator ID - [facility] Nitrogen, random [id number] 10:42:00 Test Item Value Reference Range Interpretation Comments Urea Nitrogen, Ur 236 mg/dL (test code = 3095-7) ISSA (test code = Reference Range: No ISSA) NormalsOperator ID - [facility] Nitrogen, random [id number] 10:42:00 Test Item Value Reference Range Interpretation Comments Urea Nitrogen, Ur 236 mg/dL (test code = 3095-7) ISSA (test code = Reference Range: No ISSA) NormalsOperator ID - [facility] Nitrogen, random [id number] 10:42:00 Test Item Value Reference Range Interpretation Comments Urea Nitrogen, Ur 236 mg/dL (test code = 3095-7) ISSA (test code = Reference Range: No ISSA) NormalsOperator ID - [facility] Nitrogen, random [id number] 10:42:00 Test Item Value Reference Range Interpretation Comments Urea Nitrogen, Ur 236 mg/dL (test code = 3095-7) ISSA (test code = Reference Range: No ISSA) NormalsOperator ID - [facility] HospitalUREA NITROGEN, RANDOM [id number] 10:42:00 Test Item Value Reference Range Interpretation Comments UREA NITROGEN URINE (BEAKER) (test 236 mg/dL code = 538) Reference Range: No NormalsOperator SC - ALEXY CVitamin D, 39-Okvefzv9687-22-29 10:38:00 Test Item Value Reference Range Interpretation Comments Vitamin D 25-Hydroxy 7.3 ng/mL 6.6-49.9 (test code = 2764) ISSA (test code = ISSA) Effective 01/06/2017: Reference Range ChangeNew: 6.6-49.9 ng/mL Previous: 13.0-47.8 ng/mL Recommended Vitamin D Target Range: 30.0-40.0 ng/mLOperator [facility] Lab Interpretation (test Normal code = 96039-0) [facility], 65-Lfmrsxd7758-56-29 10:38:00 Test Item Value Reference Range Interpretation Comments Vitamin D 25-Hydroxy 7.3 ng/mL 6.6-49.9 (test code = 2764) ISSA (test code = ISSA) Effective 01/06/2017: Reference Range ChangeNew: 6.6-49.9 ng/mL Previous: 13.0-47.8 ng/mL Recommended Vitamin D Target Range: 30.0-40.0 ng/mLOperator ID - ALEXY C Lab Interpretation (test Normal code = 38050-9) [facility], 89-Kfkmyzi0717-87-29 10:38:00 Test Item Value Reference Range Interpretation Comments Vitamin D 25-Hydroxy 7.3 ng/mL 6.6-49.9 (test code = 2764) ISSA (test code = ISSA) Effective 01/06/2017: Reference Range ChangeNew: 6.6-49.9 ng/mL Previous: 13.0-47.8 ng/mL Recommended Vitamin D Target Range: 30.0-40.0 ng/mLOperator ID - ALEXY C Lab Interpretation (test Normal code = 72646-6) [facility], 75-Sonalzr7534-51-29 10:38:00 Test Item Value Reference Range Interpretation Comments Vitamin D 25-Hydroxy 7.3 ng/mL 6.6-49.9 (test code = 2764) ISSA (test code = ISSA) Effective 01/06/2017: Reference Range ChangeNew: 6.6-49.9 ng/mL Previous: 13.0-47.8 ng/mL Recommended Vitamin D Target Range: 30.0-40.0 ng/mLOperator ID - ALEXY C Lab Interpretation (test Normal code = 89192-2) [facility], 85-[id number] 10:38:00 Test Item Value Reference Range Interpretation Comments Vitamin D 25-Hydroxy 7.3 ng/mL 6.6-49.9 (test code = 2764) ISSA (test code = ISSA) Effective 01/06/2017: Reference Range ChangeNew: 6.6-49.9 ng/mL Previous: 13.0-47.8 ng/mL Recommended Vitamin D Target Range: 30.0-40.0 ng/mLOperator ID - ALEXY C Lab Interpretation (test Normal code = 04957-0) [facility], 24-[id number] 10:38:00 Test Item Value Reference Range Interpretation Comments Vitamin D 25-Hydroxy 7.3 ng/mL 6.6-49.9 (test code = 2764) ISSA (test code = ISSA) Effective 01/06/2017: Reference Range ChangeNew: 6.6-49.9 ng/mL Previous: 13.0-47.8 ng/mL Recommended Vitamin D Target Range: 30.0-40.0 ng/mLOperator ID ALEXY C Lab Interpretation (test Normal code = 91240-6) [facility], 01-Dfhfpkv7825-95-29 10:38:00 Test Item Value Reference Range Interpretation Comments Vitamin D 25-Hydroxy 7.3 ng/mL 6.6-49.9 (test code = 2764) ISSA (test code = ISSA) Effective 01/06/2017: Reference Range ChangeNew: 6.6-49.9 ng/mL Previous: 13.0-47.8 ng/mL Recommended Vitamin D Target Range: 30.0-40.0 ng/mLOperator [facility] C Lab Interpretation (test Normal code = 21452-6) [facility]VITAMIN D, 06-[id number] 10:38:00 Test Item Value Reference Range Interpretation Comments VITAMIN D 25-OH (BEAKER) (test code 7.3 ng/mL 6.6-49.9 = 2764) Effective 01/06/2017: Reference Range ChangeNew: 6.6-49.9 ng/mL Previous: 13.0-47.8 ng/mLRecommended Vitamin D Target Range: 30.0-40.0 ng/mLOperator ID ALEXY [facility], [id number] 07:31:00 Test Item Value Reference Range Interpretation Comments PTH (test code = 2731-8) 271.6 pg/mL 15-90 H ISSA (test code = ISSA) Sole Molder ID - [id number] Lab Interpretation (test Abnormal code = 45955-9) [facility], pqxdqg2779-08-04 07:31:00 Test Item Value Reference Range Interpretation Comments PTH (test code = 2731-8) 271.6 pg/mL 15-90 H ISSA (test code = ISSA) Sole Molder ID - [id number] Lab Interpretation (test Abnormal code = 76793-7) [facility], [id number] 07:31:00 Test Item Value Reference Range Interpretation Comments PTH (test code = 2731-8) 271.6 pg/mL 15-90 H ISSA (test code = ISSA) Sole Molder ID - [id number] Lab Interpretation (test Abnormal code = 37993-7) [facility], [id number] 07:31:00 Test Item Value Reference Range Interpretation Comments PTH (test code = 2731-8) 271.6 pg/mL 15-90 H ISSA (test code = ISSA) Sole Molder ID - [id number] Lab Interpretation (test Abnormal code = 84651-9) [facility], [id number] 07:31:00 Test Item Value Reference Range Interpretation Comments PTH (test code = 2731-8) 271.6 pg/mL 15.0-90.0 H ISSA (test code = ISSA) Sole Molder ID - [id number] Lab Interpretation (test Abnormal code = 19183-2) [facility], [id number] 07:31:00 Test Item Value Reference Range Interpretation Comments PTH (test code = 2731-8) 271.6 pg/mL 15.0-90.0 H ISSA (test code = ISSA) Sole Molder ID - [id number] Lab Interpretation (test Abnormal code = 27152-2) [facility], [id number] 07:31:00 Test Item Value Reference Range Interpretation Comments PTH (test code = 2731-8) 271.6 pg/mL 15.0-90.0 H ISSA (test code = ISSA) Sole Molder ID - [id number] Lab Interpretation (test Abnormal code = 16868-3) [facility], [id number] 07:31:00 Test Item Value Reference Range Interpretation Comments PARATHYROID HORMONE INTACT 271.6 pg/mL 15.0-90.0 H (BEAKER) (test code = 577) Sole Molder ID - [id number] 06:45:00 Test Item Value Reference Range Interpretation Comments POC-GLUCOSE METER 122 mg/dL 70-110 H : Notified RN/MD: TESTED (BEAKER) (test code AT [address] PO[address] = 1538) [place], [facility] [address]: Sole Molder/Techni cornelia ID = [id number] for Jerad Coco ortiz Iron, TIBC, % sat. (without ferritin)2020-09-24 06:41:00 Test Item Value Reference Range Interpretation Comments Iron (test code = 43.0 ug/dL 45-170 L 2498-4) TIBC (test code = 189 ug/dL 250-550 L 2500-7) Iron % Saturation (test 23 % 20-55 code = 2502-3) ISSA (test code = ISSA) Sole Molder ID - LITOOperator ID - ARCHIE Lab Interpretation (test Abnormal code = 68248-5) [facility], TIBC, % sat. (without ferritin)2020-09-24 06:41:00 Test Item Value Reference Range Interpretation Comments Iron (test code = 43.0 ug/dL 45-170 L 2498-4) TIBC (test code = 189 ug/dL 250-550 L 2500-7) Iron % Saturation (test 23 % 20-55 code = 2502-3) ISSA (test code = ISSA) Sole Molder ID - LITOOperator ID - ARCHIE Lab Interpretation (test Abnormal code = 10189-0) [facility], TIBC, % sat. (without ferritin)2020-09-24 06:41:00 Test Item Value Reference Range Interpretation Comments Iron (test code = 43.0 ug/dL 45-170 L 2498-4) TIBC (test code = 189 ug/dL 250-550 L 2500-7) Iron % Saturation (test 23 % 20-55 code = 2502-3) ISSA (test code = ISSA) Sole Molder ID - LITOOperator ID - ARCHIE Lab Interpretation (test Abnormal code = 79076-2) [facility], TIBC, % sat. (without ferritin)2020-09-24 06:41:00 Test Item Value Reference Range Interpretation Comments Iron (test code = 43.0 ug/dL 45-170 L 2498-4) TIBC (test code = 189 ug/dL 250-550 L 2500-7) Iron % Saturation (test 23 % 20-55 code = 2502-3) ISSA (test code = ISSA) Sole Molder ID - LITOOperator ID - ARCHIE Lab Interpretation (test Abnormal code = 44511-1) [facility], TIBC, % sat. (without ferritin)2020-09-24 06:41:00 Test Item Value Reference Range Interpretation Comments Iron (test code = 43.0 ug/dL 45.0-170.0 L 2498-4) TIBC (test code = 189 ug/dL 250-550 L 2500-7) Iron % Saturation (test 23 % 20-55 code = 2502-3) ISSA (test code = ISSA) Sole Molder ID - LITOOperator ID - ARCHIE Lab Interpretation (test Abnormal code = 57851-3) [facility], TIBC, % sat. (without ferritin)2020-09-24 06:41:00 Test Item Value Reference Range Interpretation Comments Iron (test code = 43.0 ug/dL 45.0-170.0 L 2498-4) TIBC (test code = 189 ug/dL 250-550 L 2500-7) Iron % Saturation (test 23 % 20-55 code = 2502-3) ISSA (test code = ISSA) Sole Molder ID - LITOOperator ID - ARCHIE Lab Interpretation (test Abnormal code = 79312-0) [facility], TIBC, % sat. (without ferritin)2020-09-24 06:41:00 Test Item Value Reference Range Interpretation Comments Iron (test code = 43.0 ug/dL 45.0-170.0 L 2498-4) TIBC (test code = 189 ug/dL 250-550 L 2500-7) Iron % Saturation (test 23 % 20-55 code = 2502-3) ISSA (test code = ISSA) Sole Molder ID - LITOOperator ID - ARCHIE Lab Interpretation (test Abnormal code = 47930-7) [facility], TIBC, % SAT. (WITHOUT FERRITIN)2020-09-24 06:41:00 Test Item Value Reference Range Interpretation Comments IRON (BEAKER) (test code = 547) 43.0 ug/dL 45.0-170.0 L TOTAL IRON BINDING CAPACITY 189 ug/dL 250-550 L (BEAKER) (test code = 769) IRON % SATURATION (2) (BEAKER) 23 % 20-55 (test code = 2590) Sole Molder ID - LITOOperator ID - [id number] 06:23:00 Test Item Value Reference Range Interpretation Comments Ferritin (test code = 190.40 ng/mL 22-322 2276-4) ISSA (test code = ISSA) Sole Molder ID - ARCHIE Lab Interpretation (test Normal code = 79636-1) [facility] 06:23:00 Test Item Value Reference Range Interpretation Comments Ferritin (test code = 190.40 ng/mL 22-322 2276-4) ISSA (test code = ISSA) Sole Molder ID - ARCHIE Lab Interpretation (test Normal code = 42775-6) [facility]2021-[facility]-29 06:23:00 Test Item Value Reference Range Interpretation Comments Ferritin (test code = 190.40 ng/mL 22-322 2276-4) ISSA (test code = ISSA) Sole Molder ID - ARCHIE Lab Interpretation (test Normal code = 20835-0) [facility]21-[facility]-29 06:23:00 Test Item Value Reference Range Interpretation Comments Ferritin (test code = 190.40 ng/mL 22-322 2276-4) ISSA (test code = ISSA) Sole Molder ID - ARCHIE Lab Interpretation (test Normal code = 83367-5) [facility]21-[facility]29 06:23:00 Test Item Value Reference Range Interpretation Comments Ferritin (test code = 190.40 ng/mL 22.00-322.00 2276-4) ISSA (test code = ISSA) Sole Molder ID - ARCHIE Lab Interpretation (test Normal code = 85868-8) [facility] 06:23:00 Test Item Value Reference Range Interpretation Comments Ferritin (test code = 190.40 ng/mL 22.00-322.00 2276-4) ISSA (test code = ISSA) Sole Molder ID - ARCHIE Lab Interpretation (test Normal code = 71866-2) [facility] 06:23:00 Test Item Value Reference Range Interpretation Comments Ferritin (test code = 190.40 ng/mL 22.00-322.00 2276-4) ISSA (test code = ISSA) Sole Molder ID - ARCHIE Lab Interpretation (test Normal code = 43876-1) [facility]IN2021-[facility]-29 06:23:00 Test Item Value Reference Range Interpretation Comments FERRITIN (BEAKER) (test code = 190.40 ng/mL 22.00-322.00 361) Sole Molder ID - LITOBASIC METABOLIC [id number] 06:18:00 Test Item Value Reference Range Interpretation [...] S NOT APPLICABLE FOR DIALYSIS PATIEN TS. Sole Molder ID - LITOOperator ID - LITOOperator ID - LITOOperator ID - LITOOperator ID - LITOOperator ID - LITOOperator ID - LITOOperator ID - LITOOperator ID - LITOOperator ID - [id number] 06:04:00 Test Item Value Reference Range Interpretation Comments MAGNESIUM (BEAKER) (test code = 1.6 mg/dL 1.5-3.0 627) Sole Molder ID - LITOOperator ID - LITOOperator ID - LITOOperator ID - LITOCBC W/PLT COUNT & AUTO [id number] 06:03:00 Test Item Value Reference Range Interpretation [...] PERCENT (BEAKER) (test code = 2801) POCT-GLUCOSE [id number] 21:37:00 Test Item Value Reference Range Interpretation Comments POC-GLUCOSE METER 185 mg/dL 70-110 H : TESTED A T [address] (BEAKER) (test code [address], = 1538) [facility] [address]: Sole Molder/Techni cornelia ID = [id number] for Rachel Branham U/S, RENAL, [id number] 21:19:00Reason for exam:->Acute renal failure [facility] : 1975 Sex: MFINAL [...] urinary bladder postvoid residual. Signed: Moose Petersen MDReport Verified Date/Time: 121:19:36 US renal [id number] 21:19:00Interface, External Ris In - 09/23/2020 9:21 [...] Signed: Teo Petersen Verified Date/Time: 09/23/2020 21:19:36 [facility] 2020-09-23 21:19:00Interface, External Ris In [...] disease.No hydronephrosis.Small urinary bladder postvoid residual. Signed: Amuta, Moose MDReport Verified Date/Time: 09/23/2020 21:19:36 [facility] renal uhmwwosr3684-75-64 21:19:00Interface, External Ris In - 09/23/2020 9:21 [...] urinary bladder postvoid residual. Signed: Moose Petersen MDReport Verified Date/Time: 09/23/2020 21:19:36 [facility] renal kdftsrxc6982-51-79 21:19:00Interface, External Ris In - 09/23/2020 9:21 [...] urinary bladder postvoid residual. Signed: Moose Petersen MDReport Verified Date/Time: 09/23/2020 21:19:36 [facility] Protein, random pbpzm5367-65-53 19:02:00 Test Item Value Reference Range Interpretation Comments Protein, Urine (test code 212 mg/dL 0-14 H = 2888-6) ISSA (test code = ISSA) Sole Molder ID - [id number] ID - [id number] Lab Interpretation (test Abnormal code = 56243-4) [facility], random [id number] 19:02:00 Test Item Value Reference Range Interpretation Comments Protein, Urine (test code 212 mg/dL 0-14 H = 2888-6) ISSA (test code = ISSA) Sole Molder ID - [id number] ID - [id number] Lab Interpretation (test Abnormal code = 74413-5) [facility]Protein, random mpkbj1321-26-25 19:02:00 Test Item Value Reference Range Interpretation Comments Protein, Urine (test code 212 mg/dL 0-14 H = 2888-6) ISSA (test code = ISSA) Sole Molder ID - [id number] ID - [id number] Lab Interpretation (test Abnormal code = 62603-7) [facility]Protein, random [id number] 19:02:00 Test Item Value Reference Range Interpretation Comments Protein, Urine (test code 212 mg/dL 0-14 H = 2888-6) ISSA (test code = ISSA) Sole Molder ID - [id number] ID - [id number] Lab Interpretation (test Abnormal code = 74557-8) [facility]Protein, random [id number] 19:02:00 Test Item Value Reference Range Interpretation Comments Protein, Urine (test code 212 mg/dL 0-14 H = 2888-6) ISSA (test code = ISSA) Sole Molder ID - [id number] ID - [id number] Lab Interpretation (test Abnormal code = 57895-8) [facility]Protein, random [id number] 19:02:00 Test Item Value Reference Range Interpretation Comments Protein, Urine (test code 212 mg/dL 0-14 H = 2888-6) ISSA (test code = ISSA) Sole Molder ID - [id number] ID - [id number] Lab Interpretation (test Abnormal code = 85451-5) [facility]Protein, random [id number] 19:02:00 Test Item Value Reference Range Interpretation Comments Protein, Urine (test code 212 mg/dL 0-14 H = 2888-6) ISSA (test code = ISSA) Sole Molder ID - [id number] ID - [id number] Lab Interpretation (test Abnormal code = 46737-8) [facility] HospitalPROTEIN, RANDOM [id number] 19:02:00 Test Item Value Reference Range Interpretation Comments PROTEIN, URINE (BEAKER) (test code 212 mg/dL 0-14 H = 1569) Sole Molder ID - [id number] ID - [id number], random [id number] 18:49:00 Test Item Value Reference Range Interpretation Comments Creatinine, Ur 23.8 mg/dL (test code = 2161-8) ISSA (test code = Reference Range: No ISSA) NormalsOperator ID - [id number] [facility] HospitalCreatinine, random [id number] 18:49:00 Test Item Value Reference Range Interpretation Comments Creatinine, Ur 23.8 mg/dL (test code = 2161-8) ISSA (test code = Reference Range: No ISSA) NormalsOperator ID - [id number] [facility] HospitalCreatinine, random [id number] 18:49:00 Test Item Value Reference Range Interpretation Comments Creatinine, Ur 23.8 mg/dL (test code = 2161-8) ISSA (test code = Reference Range: No ISSA) NormalsOperator ID - [id number] [facility] HospitalCreatinine, random [id number] 18:49:00 Test Item Value Reference Range Interpretation Comments Creatinine, Ur 23.8 mg/dL (test code = 2161-8) ISSA (test code = Reference Range: No ISSA) NormalsOperator ID - [id number] [facility] HospitalCreatinine, random [id number] 18:49:00 Test Item Value Reference Range Interpretation Comments Creatinine, Ur 23.8 mg/dL (test code = 2161-8) ISSA (test code = Reference Range: No ISSA) NormalsOperator ID - [id number] [facility] HospitalCreatinine, random [id number] 18:49:00 Test Item Value Reference Range Interpretation Comments Creatinine, Ur 23.8 mg/dL (test code = 2161-8) ISSA (test code = Reference Range: No ISSA) NormalsOperator ID - [id number] [facility] [id number] 18:49:00 Test Item Value Reference Range Interpretation Comments Creatinine, Ur 23.8 mg/dL (test code = 2161-8) ISSA (test code = Reference Range: No ISSA) NormalsOperator ID - [id number] [facility] HospitalCREH[facility]CH[facility]ITALINE, RANDOM [id number] 18:49:00 Test Item Value Reference Range Interpretation Comments CREATININE URINE (BEAKER) (test 23.8 mg/dL code = 375) Reference Range: No NormalsOperator ID - [id number], random urine 2020-09-23 18:43:00 Test Item Value Reference Range Interpretation Comments ChlorideUr (test 117 meq/L code = 88747-6) ISSA (test code = Reference Range: No ISSA) NormalsOperator ID - [id number] [facility] HospitalPotassium, random [id number] 18:43:00 Test Item Value Reference Range Interpretation Comments Potassium Urine 21.5 meq/L (test code = 2828-2) ISSA (test code = Reference Range: No ISSA) NormalsOperator ID - [id number] [facility] [id number] 18:43:00 Test Item Value Reference Range Interpretation Comments Sodium Urine (test 113 meq/L code = 2955-3) ISSA (test code = Reference Range: No ISSA) NormalsOperator ID - [id number] [facility] HospitalChloride, random [id number] 18:43:00 Test Item Value Reference Range Interpretation Comments ChlorideUr (test 117 meq/L code = 08099-7) ISSA (test code = Reference Range: No ISSA) NormalsOperator ID - [id number] [facility] HospitalPotassium, random [id number] 18:43:00 Test Item Value Reference Range Interpretation Comments Potassium Urine 21.5 meq/L (test code = 2828-2) ISSA (test code = Reference Range: No ISSA) NormalsOperator ID - [id number] [facility] Hospitalodium, random [id number] 18:43:00 Test Item Value Reference Range Interpretation Comments Sodium Urine (test 113 meq/L code = 2955-3) ISSA (test code = Reference Range: No ISSA) NormalsOperator ID - [id number] [facility] HospitalChloride, random [id number] 18:43:00 Test Item Value Reference Range Interpretation Comments ChlorideUr (test 117 meq/L code = 00355-0) ISSA (test code = Reference Range: No ISSA) NormalsOperator ID - [id number] [facility] HospitalPotassium, random [id number] 18:43:00 Test Item Value Reference Range Interpretation Comments Potassium Urine 21.5 meq/L (test code = 2828-2) ISSA (test code = Reference Range: No ISSA) NormalsOperator ID - [id number] [facility]odium, random [id number] 18:43:00 Test Item Value Reference Range Interpretation Comments Sodium Urine (test 113 meq/L code = 2955-3) ISSA (test code = Reference Range: No ISSA) NormalsOperator ID - [id number] [facility] HospitalChloride, random [id number] 18:43:00 Test Item Value Reference Range Interpretation Comments ChlorideUr (test 117 meq/L code = 60792-0) ISSA (test code = Reference Range: No ISSA) NormalsOperator ID - [id number] [facility] [id number] 18:43:00 Test Item Value Reference Range Interpretation Comments Potassium Urine 21.5 meq/L (test code = 2828-2) ISSA (test code = Reference Range: No ISSA) NormalsOperator ID - [id number] [facility] Hospitalodium, random [id number] 18:43:00 Test Item Value Reference Range Interpretation Comments Sodium Urine (test 113 meq/L code = 2955-3) ISSA (test code = Reference Range: No ISSA) NormalsOperator ID - [id number] [facility] HospitalChloride, random [id number] 18:43:00 Test Item Value Reference Range Interpretation Comments ChlorideUr (test 117 meq/L code = 50343-9) ISSA (test code = Reference Range: No ISSA) NormalsOperator ID - [id number] [facility] HospitalPotassium, random [id number] 18:43:00 Test Item Value Reference Range Interpretation Comments Potassium Urine 21.5 meq/L (test code = 2828-2) ISSA (test code = Reference Range: No ISSA) NormalsOperator ID - [id number] [facility] [id number] 18:43:00 Test Item Value Reference Range Interpretation Comments Sodium Urine (test 113 meq/L code = 2955-3) ISSA (test code = Reference Range: No ISSA) NormalsOperator ID - [id number] [facility] HospitalChloride, random [id number] 18:43:00 Test Item Value Reference Range Interpretation Comments ChlorideUr (test 117 meq/L code = 27767-4) ISSA (test code = Reference Range: No ISSA) NormalsOperator ID - [id number] [facility] HospitalPotassium, random [id number] 18:43:00 Test Item Value Reference Range Interpretation Comments Potassium Urine 21.5 meq/L (test code = 2828-2) ISSA (test code = Reference Range: No ISSA) NormalsOperator ID - [id number] [facility] [id number] 18:43:00 Test Item Value Reference Range Interpretation Comments Sodium Urine (test 113 meq/L code = 2955-3) ISSA (test code = Reference Range: No ISSA) NormalsOperator ID - [id number] [facility]Chloride, random [id number] 18:43:00 Test Item Value Reference Range Interpretation Comments ChlorideUr (test 117 meq/L code = 02130-7) ISSA (test code = Reference Range: No ISSA) NormalsOperator ID - [id number] [facility] HospitalPotassium, random [id number] 18:43:00 Test Item Value Reference Range Interpretation Comments Potassium Urine 21.5 meq/L (test code = 2828-2) ISSA (test code = Reference Range: No ISSA) NormalsOperator ID - [id number] [facility] [id number] 18:43:00 Test Item Value Reference Range Interpretation Comments Sodium Urine (test 113 meq/L code = 2955-3) ISSA (test code = Reference Range: No ISSA) NormalsOperator ID - [id number] [facility] HospitalCHLORIDE, RANDOM [id number] 18:43:00 Test Item Value Reference Range Interpretation Comments CHLORIDE URINE (BEAKER) (test code 117 meq/L = 682) Reference Range: No NormalsOperator ID - [id number], RANDOM URINE 2020-09-23 18:43:00 Test Item Value Reference Range Interpretation Comments POTASSIUM URINE (BEAKER) (test 21.5 meq/L code = 195) Reference Range: No NormalsOperator ID - [id number], RANDOM [id number] 18:43:00 Test Item Value Reference Range Interpretation Comments SODIUM URINE (BEAKER) (test code = 113 meq/L 243) Reference Range: No NormalsOperator ID - [id number] w/Microscopic + Reflex to [id number] 17:44:00 Test Item Value Reference Range Interpretation Comments Color, UA (test code = Yellow 5778-6) Clarity, UA (test code = Clear 5767-9) Specific [place], UA 1.020 1.001-1.035 (test code = 5811-5) pH, UA (test code = 7.0 5.0-8.0 5803-2) Protein, UA (test code = 100 mg/dL Negative A 50748-7) Glucose, UA (test code = 100 mg/dL Negative A 365) Ketones, UA (test code = Negative Negative 2514-8) Bilirubin, UA (test code Negative Negative = 94201-6) Blood, UA (test code = Trace Negative A 64749-7) Nitrite, UA (test code = Negative Negative 5802-4) Leukocytes, UA (test Negative Negative code = 5799-2) Urobilinogen, UA (test 0.2 mg/dL 0.2-1 code = 29417-4) Bacteria, UA (test code None Seen = 92971-4) RBC, UA (test code = <5 See_Comment [Autom ated message] 799-7) The system RegisterPatient generated this result transmit josé luis reference range : /HPF. The refer ence range was not u sed to interpret th is result as normal/abnormal . WBC, UA (test code = None Seen See_Comment [Autom ated message] 27976-2) The system RegisterPatient generated this result transmit josé luis reference range : /HPF. The refer ence range was not u sed to interpret th is result as normal/abnormal . SQUAMOUS EPITHELIAL <5 See_Comment [Automa josé luis message] (test code = 33840-6) The sy stem which generated this result transmit josé luis reference range : /HPF. The refer ence range was not u sed to interpret th is result as normal/abnormal . Specimen Source (test code = 2795) Lab Interpretation (test Abnormal code = 75356-3) [facility]inal[facility]/Microscopic + Reflex to Culture 2020-09-23 17:44:00 Test Item Value Reference Range Interpretation Comments Color, UA (test code = Yellow 5778-6) Clarity, UA (test code = Clear 5767-9) Specific [place], UA 1.020 1.001-1.035 (test code = 5811-5) pH, UA (test code = 7.0 5.0-8.0 5803-2) Protein, UA (test code = 100 mg/dL Negative A 46665-2) Glucose, UA (test code = 100 mg/dL Negative A 365) Ketones, UA (test code = Negative Negative 2514-8) Bilirubin, UA (test code Negative Negative = 92483-2) Blood, UA (test code = Trace Negative A 01702-4) Nitrite, UA (test code = Negative Negative 5802-4) Leukocytes, UA (test Negative Negative code = 5799-2) Urobilinogen, UA (test 0.2 mg/dL 0.2-1 code = 97771-3) Bacteria, UA (test code None Seen = 97091-3) RBC, UA (test code = <5 See_Comment [Autom ated message] 799-7) The system RegisterPatient generated this result transmit josé luis reference range : /HPF. The refer ence range was not u sed to interpret th is result as normal/abnormal . WBC, UA (test code = None Seen See_Comment [Autom ated message] 33322-9) The system RegisterPatient generated this result transmit josé luis reference range : /HPF. The refer ence range was not u sed to interpret th is result as normal/abnormal . SQUAMOUS EPITHELIAL <5 See_Comment [Automa josé luis message] (test code = 88830-1) The sy stem which generated this result transmit josé luis reference range : /HPF. The refer ence range was not u sed to interpret th is result as normal/abnormal . Specimen Source (test code = 2795) Lab Interpretation (test Abnormal code = 11469-2) [facility]/Microscopic + Reflex to Culture 2020-09-23 17:44:00 Test Item Value Reference Range Interpretation Comments Color, UA (test code = Yellow 5778-6) Clarity, UA (test code = Clear 5767-9) Specific [place], UA 1.020 1.001-1.035 (test code = 5811-5) pH, UA (test code = 7.0 5.0-8.0 5803-2) Protein, UA (test code = 100 mg/dL Negative A 23119-9) Glucose, UA (test code = 100 mg/dL Negative A 365) Ketones, UA (test code = Negative Negative 2514-8) Bilirubin, UA (test code Negative Negative = 42118-3) Blood, UA (test code = Trace Negative A 98567-9) Nitrite, UA (test code = Negative Negative 5802-4) Leukocytes, UA (test Negative Negative code = 5799-2) Urobilinogen, UA (test 0.2 mg/dL 0.2-1 code = 23447-4) Bacteria, UA (test code None Seen = 80071-9) RBC, UA (test code = <5 See_Comment [Autom ated message] 799-7) The system RegisterPatient generated this result transmit josé luis reference range : /HPF. The refer ence range was not u sed to interpret th is result as normal/abnormal . WBC, UA (test code = None Seen See_Comment [Autom ated message] 42234-8) The system RegisterPatient generated this result transmit josé luis reference range : /HPF. The refer ence range was not u sed to interpret th is result as normal/abnormal . SQUAMOUS EPITHELIAL <5 See_Comment [Automa josé luis message] (test code = 87189-7) The sy stem which generated this result transmit josé luis reference range : /HPF. The refer ence range was not u sed to interpret th is result as normal/abnormal . Specimen Source (test code = 2795) Lab Interpretation (test Abnormal code = 94365-7) [facility]/Micro[facility]opic + Reflex to Culture 2020-09-23 17:44:00 Test Item Value Reference Range Interpretation Comments Color, UA (test code = Yellow 5778-6) Clarity, UA (test code = Clear 5767-9) Specific [place], UA 1.020 1.001-1.035 (test code = 5811-5) pH, UA (test code = 7.0 5.0-8.0 5803-2) Protein, UA (test code = 100 mg/dL Negative A 64805-6) Glucose, UA (test code = 100 mg/dL Negative A 365) Ketones, UA (test code = Negative Negative 2514-8) Bilirubin, UA (test code Negative Negative = 27071-4) Blood, UA (test code = Trace Negative A 04135-0) Nitrite, UA (test code = Negative Negative 5802-4) Leukocytes, UA (test Negative Negative code = 5799-2) Urobilinogen, UA (test 0.2 mg/dL 0.2-1 code = 79520-2) Bacteria, UA (test code None Seen = 62036-5) RBC, UA (test code = <5 See_Comment [Autom ated message] 799-7) The system RegisterPatient generated this result transmit josé luis reference range : /HPF. The refer ence range was not u sed to interpret th is result as normal/abnormal . WBC, UA (test code = None Seen See_Comment [Autom ated message] 39469-6) The system RegisterPatient generated this result transmit josé luis reference range : /HPF. The refer ence range was not u sed to interpret th is result as normal/abnormal . SQUAMOUS EPITHELIAL <5 See_Comment [Automa josé luis message] (test code = 76742-1) The sy stem which generated this result transmit josé luis reference range : /HPF. The refer ence range was not u sed to interpret th is result as normal/abnormal . Specimen Source (test code = 2795) Lab Interpretation (test Abnormal code = 13114-6) [facility] + Reflex to Culture 2020-09-23 17:44:00 Test Item Value Reference Range Interpretation Comments Color, UA (test code = Yellow 5778-6) Clarity, UA (test code = Clear 5767-9) Specific [place], UA 1.020 1.001-1.035 (test code = 5811-5) pH, UA (test code = 7.0 5.0-8.0 5803-2) Protein, UA (test code = 100 mg/dL Negative A 36373-6) Glucose, UA (test code = 100 mg/dL Negative A 365) Ketones, UA (test code = Negative Negative 2514-8) Bilirubin, UA (test code Negative Negative = 59699-9) Blood, UA (test code = Trace Negative A 97788-4) Nitrite, UA (test code = Negative Negative 5802-4) Leukocytes, UA (test Negative Negative code = 5799-2) Urobilinogen, UA (test 0.2 mg/dL 0.2-1.0 code = 97099-9) Bacteria, UA (test code None Seen = 38856-5) RBC, UA (test code = <5 See_Comment [Autom ated message] 799-7) The system RegisterPatient generated this result transmit josé luis reference range : /HPF. The refer ence range was not u sed to interpret th is result as normal/abnormal . WBC, UA (test code = None Seen See_Comment [Autom ated message] 28242-2) The system RegisterPatient generated this result transmit josé luis reference range : /HPF. The refer ence range was not u sed to interpret th is result as normal/abnormal . SQUAMOUS EPITHELIAL <5 See_Comment [Automa josé luis message] (test code = 83967-5) The sy stem which generated this result transmit josé luis reference range : /HPF. The refer ence range was not u sed to interpret th is result as normal/abnormal . Specimen Source (test code = 2795) Lab Interpretation (test Abnormal code = 67116-2) [facility]opic + Reflex to Culture 2020-09-23 17:44:00 Test Item Value Reference Range Interpretation Comments Color, UA (test code = Yellow 5778-6) Clarity, UA (test code = Clear 5767-9) Specific [place], UA 1.020 1.001-1.035 (test code = 5811-5) pH, UA (test code = 7.0 5.0-8.0 5803-2) Protein, UA (test code = 100 mg/dL Negative A 14406-5) Glucose, UA (test code = 100 mg/dL Negative A 365) Ketones, UA (test code = Negative Negative 2514-8) Bilirubin, UA (test code Negative Negative = 61519-0) Blood, UA (test code = Trace Negative A 71783-2) Nitrite, UA (test code = Negative Negative 5802-4) Leukocytes, UA (test Negative Negative code = 5799-2) Urobilinogen, UA (test 0.2 mg/dL 0.2-1.0 code = 71947-1) Bacteria, UA (test code None Seen = 90084-8) RBC, UA (test code = <5 See_Comment [Autom ated message] 799-7) The system RegisterPatient generated this result transmit josé luis reference range : /HPF. The refer ence range was not u sed to interpret th is result as normal/abnormal . WBC, UA (test code = None Seen See_Comment [Autom ated message] 55934-0) The system RegisterPatient generated this result transmit josé luis reference range : /HPF. The refer ence range was not u sed to interpret th is result as normal/abnormal . SQUAMOUS EPITHELIAL <5 See_Comment [Automa josé luis message] (test code = 74194-1) The sy stem which generated this result transmit josé luis reference range : /HPF. The refer ence range was not u sed to interpret th is result as normal/abnormal . Specimen Source (test code = 2795) Lab Interpretation (test Abnormal code = 51786-5) [facility]opic + Reflex to Culture 2020-09-23 17:44:00 Test Item Value Reference Range Interpretation Comments Color, UA (test code = Yellow 5778-6) Clarity, UA (test code = Clear 5767-9) Specific [place], UA 1.020 1.001-1.035 (test code = 5811-5) pH, UA (test code = 7.0 5.0-8.0 5803-2) Protein, UA (test code = 100 mg/dL Negative A 23092-9) Glucose, UA (test code = 100 mg/dL Negative A 365) Ketones, UA (test code = Negative Negative 2514-8) Bilirubin, UA (test code Negative Negative = 97359-9) Blood, UA (test code = Trace Negative A 25078-6) Nitrite, UA (test code = Negative Negative 5802-4) Leukocytes, UA (test Negative Negative code = 5799-2) Urobilinogen, UA (test 0.2 mg/dL 0.2-1.0 code = 38858-2) Bacteria, UA (test code None Seen = 59045-1) RBC, UA (test code = <5 See_Comment [Autom ated message] 799-7) The system RegisterPatient generated this result transmit josé luis reference range : /HPF. The refer ence range was not u sed to interpret th is result as normal/abnormal . WBC, UA (test code = None Seen See_Comment [Autom ated message] 91676-2) The system RegisterPatient generated this result transmit josé luis reference range : /HPF. The refer ence range was not u sed to interpret th is result as normal/abnormal . SQUAMOUS EPITHELIAL <5 See_Comment [Automa josé luis message] (test code = 49483-1) The sy stem which generated this result transmit josé luis reference range : /HPF. The refer ence range was not u sed to interpret th is result as normal/abnormal . Specimen Source (test code = 2795) Lab Interpretation (test Abnormal code = 77739-2) [facility]FLEX URINE [id number] 17:44:00 Test Item Value Reference Range Interpretation [...] 1663) SOURCE(BEAKER) (test code = 2795) POCT-GLUCOSE [id number] 16:33:00 Test Item Value Reference Range Interpretation Comments POC-GLUCOSE METER 232 mg/dL 70-110 H : TESTED A T [facility] 1317 (BEAKER) (test code [facility] [address], = 1538) [facility] 77 478: Sole Molder/Techni cornelia ID = [id number] for Mily Coy 2D Echo W/Doppler(CW/PW/Color)2020-09-23 14:27:41Ejection FractionSLEH ECHO HEARTLAB MKCKESSON CPACSInterface, External Ris In - 09/23/2020 2:27 PM C DTTransthoracic Echocardiography Report (TTE) Demographics Patient Name FRANDY FORD Date of Study 09/23/2020 MERRITT Gender Male Visit Number [id number] Race Room Number 428 Number Date of 1975 Referring Physician Age 44 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 Procedure Type of Study TTE procedure:2DECHO W DOPPLER(CW/PW/COLOR) (Routine) Indications:Dyspnea/SOB.Clinical Historytiastrokerenalmihtnhlddmcheight: 70 inches Weight: 126.55 kg (279 lbs) [...] Peak Gradient: 2.05 mmHg Estimated PASP: 47.75 [facility] Hospital2D Echo W/Doppler(CW/PW/Color)2020-09-23 14:27:41Ejection FractionSLEH ECHO HEARTLAB MKCKESSON CPACSInterface, External Ris In - 09/23/2020 2:27 PM C DTTransthoracic Echocardiography Report (TTE) Demographics Patient Name FRANDY FORD Date of Study 09/23/2020 MERRITT Gender Male Visit Number [id number] Race Room Number 428 Number Date of 1975 Referring Physician Age 44 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 Procedure Type [...] Peak Gradient: 2.05 mmHg Estimated PASP: 47.75 mmHgBrea Community Hospital2D Echo W/Doppler(CW/PW/Color)2020-09-23 14:27:41Ejection FractionSLE ECHO HEARTLAB [facility]2D Echo W/Doppler(CW/PW/Color)2020-09-23 14:27:41Ejection FractionSLE ECHO HEARTLAB [facility]2D Echo W/Doppler(CW/PW/Color) 2020-09-23 14:27:41Ejection [facility]ractionSLE [facility] CenterPO[facility]-GLUCOSE [id number] 11:54:00 Test Item Value Reference Range Interpretation Comments POC-GLUCOSE METER 133 mg/dL 70-110 H : TESTED A T [facility] 1317 (BEAKER) (test code [address], = 1538) [facility] 77 478: Sole Molder/Techni cornelia ID = [id number] for Mily Coy RAD, FOOT, MIN 3 VIEWS, [id number] 08:48:00Reason for exam:->[facility] 1975 Sex: MFINAL [...] LacyMDReport Verified Date/Time: 09/23/2020 08:48:33 Reading Location: [facility] Radiology Reading Room POCT-GLUCOSE METER 2020-09-23 08:11:00 Test Item Value Reference Range Interpretation Comments POC-GLUCOSE METER 91 mg/dL 70-110 : TESTED A T [facility] 1317 (BEAKER) (test code = [address], [address]) [facility] 77 478: Sole Molder/Techni cornelia ID = [id number] for Mily Coy [id number] 08:04:00 Test Item Value Reference Range Interpretation Comments Phosphorus (test code = 3.5 mg/dL 2.5-4.5 2777-1) ISSA (test code = ISSA) Sole Molder ID - [id number] Lab Interpretation (test Normal code = 70720-2) [facility] HospitalPhosph[facility]2021-[facility] 08:04:00 Test Item Value Reference Range Interpretation Comments Phosphorus (test code = 3.5 mg/dL 2.5-4.5 2777-1) ISSA (test code = SISA) Sole Molder ID - [id number] Lab Interpretation (test Normal code = 82239-6) [facility]2021-[facility]-28 08:04:00 Test Item Value Reference Range Interpretation Comments Phosphorus (test code = 3.5 mg/dL 2.5-4.5 2777-1) ISSA (test code = ISSA) Sole Molder ID - [id number] Lab Interpretation (test Normal code = 91978-6) [facility]2021-[facility]-28 08:04:00 Test Item Value Reference Range Interpretation Comments Phosphorus (test code = 3.5 mg/dL 2.5-4.5 2777-1) ISSA (test code = ISSA) Sole Molder ID - [id number] Lab Interpretation (test Normal code = 80603-0) [facility]2021-[facility]-28 08:04:00 Test Item Value Reference Range Interpretation Comments Phosphorus (test code = 3.5 mg/dL 2.5-4.5 2777-1) ISSA (test code = ISSA) Sole Molder ID - [id number] Lab Interpretation (test Normal code = 49066-6) [facility]2021-[facility]28 08:04:00 Test Item Value Reference Range Interpretation Comments Phosphorus (test code = 3.5 mg/dL 2.5-4.5 2777-1) ISSA (test code = ISSA) Sole Molder ID - [id number] Lab Interpretation (test Normal code = 05278-6) [facility]2021-[facility]28 08:04:00 Test Item Value Reference Range Interpretation Comments Phosphorus (test code = 3.5 mg/dL 2.5-4.5 2777-1) ISSA (test code = ISSA) Sole Molder ID - [id number] Lab Interpretation (test Normal code = 74996-6) [facility]PHOSPHORUS2021-06-28 08:04:00 Test Item Value Reference Range Interpretation Comments PHOSPHORUS (BEAKER) (test code = 3.5 mg/dL 2.5-4.5 604) Sole Molder ID - [id number] METABOLIC [id number] 06:06:00 Test Item Value Reference Range Interpretation [...] S NOT APPLICABLE FOR DIALYSIS PATIEN TS. Sole Molder ID - [id number] ID - [id number] ID - [id number] ID - [id number] ID - [id number] ID - [id number] ID - [id number] ID - [id number] ID - [id number] ID - [id number] 05:56:00 Test Item Value Reference Range Interpretation Comments MAGNESIUM (BEAKER) (test code = 1.5 mg/dL 1.5-3.0 627) Sole Molder ID - [id number] ID - [id number] ID - [id number] ID - [id number] CBC W/PLT COUNT & AUTO [id number] 05:39:00 Test Item Value Reference Range Interpretation [...] PERCENT (BEAKER) (test code = 2801) POCT-GLUCOSE [id number] 20:58:00 Test Item Value Reference Range Interpretation Comments POC-GLUCOSE METER 126 mg/dL 70-110 H : TESTED A T [facility] [address]17 (BEAKER) (test code [facility] [address], = 1538) [place] [address]: Sole Molder/Techni cornelia ID = [id number] for Rachel Branham POCT-GLUCOSE [id number] 17:16:00 Test Item Value Reference Range Interpretation Comments POC-GLUCOSE METER 201 mg/dL 70-110 H : TESTED A T [facility] [address] (BEAKER) (test [facility] [address], = 1538) [place] [address]: Sole Molder/Techni cornelia ID = [id number] for Mily Coy SARS-CoV2/RT-PCR (Asymptomatic ONLY)2020-09-22 12:08:00 Test Item Value Reference Range Interpretation Comments SARS-COV2/RT-PCR Negative Not Detected, Performanc e of the Xpert (test code = Negative, See Xpress 58264-1) external report SARS-CoV-2/F siddhartha/RSV test for linked [...] Sh eet for Healthcare Prov iders: https://www.cep heid.[employer]/ Documents/Xpert %20Xpress %69DHCP-XjF-1-F siddhartha-RSV/30 2-4508%20Rev.%2 0B%20HCP% 20Fact%20Sheet. pdf Fact Sheet for Healt hcare Patients: https://www.KROGNI.[employer]/ Documents/Xpert %20Xpress %45KPIS-NfL-4-F siddhartha-RSV/30 2-4507%20Rev.%2 0B%20Pati ent%20Fact%20Sh eet.pdf SARS-COV-2 SLSL Performed at:[facility] PERFORMING LAB Amy fine1317 (test code = Ignacio Nelson [address]-0) [place] [address] ph: [phone] [facility] (Asymptomatic ONLY)2020-09-22 12:08:00 Test Item Value Reference Range Interpretation Comments SARS-COV2/RT-PCR Negative Not Detected, Performanc e of the Xpert (test code = Negative, See Xpress 48406-9) external report SARS-CoV-2/F siddhartha/RSV test for linked [...] Fact Sh eet for Healthcare Prov iders: https://www.KROGNI.[employer]/ Documents/Xpert %20Xpress %21NJGA-DnD-7-F siddhartha-RSV30 2-4508%20Rev.%2 0B%20HCP% 20Fact%20Sheet. pdf Fact Sheet for Healt hcare Patients: https://www.KROGNI.[employer]/ Documents/Xpert %20Xpress %73BECN-QqJ-9-F siddhartha-RSV30 2-4507%20Rev.%2 0B%20Pati ent%20Fact%20Sh eet.pdf SARS-COV-2 SLSL Performed at:[facility] PERFORMING LAB Amy Mcfarland [id number] (test code = Ignacio Nelson [address]223-3) [place] [address] ph: [phone] [facility] (Asymptomatic ONLY)2020-09-22 12:08:00 Test Item Value Reference Range Interpretation Comments SARS-COV2/RT-PCR Negative Not Detected, Performanc e of the Xpert (test code = Negative, See Xpress 10056-7) external report SARS-CoV-2/F siddhartha/RSV test for linked [...] Fact Sh eet for Healthcare Prov iders: https://www.[employer]/ Documents/Xpert %20Xpress %25CXUG-FwR-1-F siddhartha-RSV/30 2-4508%20Rev.%2 0B%20HCP% 20Fact%20Sheet. pdf Fact Sheet for Healt hcare Patients: https://www.KROGNI.[employer]/ Documents/Xpert %20Xpress %62SXLF-SwA-1-F siddhartha-RSV/30 2-4507%20Rev.%2 0B%20Pati ent%20Fact%20Sh eet.pdf SARS-COV-2 SLSL Performed at:[facility] LAB [facility] (test code = gInacio Nelson [address]-3) [place] [address] ph: [phone] [facility]PCR (Asymptomatic ONLY)2020-09-22 12:08:00 Test Item Value Reference Range Interpretation Comments SARS-COV2/RT-PCR Negative Not Detected, Performanc e of the Xpert (test code = Negative, See Xpress 91786-5) external report SARS-CoV-2/F siddhartha/RSV test for linked [...] en collection; matilde lure to follow the brayd mmended sample collecti on, handling, and s [...] Fact Sh eet for Healthcare Prov iders: https://www.KROGNI.[employer]/ Documents/Xpert %20Xpress %96JPOX-JdT-5-F siddhartha-RSV/30 2-4508%20Rev.%2 0B%20HCP% 20Fact%20Sheet. pdf Fact Sheet for Healt hcare Patients: https://www.KROGNI.[employer]/ Documents/Xpert %20Xpress %18NMNC-UlB-2-F siddhartha-RSV/30 2-4507%20Rev.%2 0B%20Pati ent%20Fact%20Sh eet.pdf SARS-COV-2 SLSL Performed at:[facility] PERFORMING LAB [place] [id number] (test code = Ignacio Nelson 38889-8) [place] [address] ph: [phone] [facility]2020-09-22 12:08:00 Test Item Value Reference Range Interpretation Comments SARS-COV2/RT-PCR Negative Not Detected, Performanc e of the Xpert (test code = Negative, See Xpress 09498-7) external report SARS-CoV-2/F siddhartha/RSV test for linked [...] Fact Sh eet for Healthcare Prov iders: https://www.Cmxtwenty/ Documents/Xpert %20Xpress %97TCEM-IsA-3-F siddhartha-RSV/30 2-4508%20Rev.%2 0B%20HCP% 20Fact%20Sheet. pdf Fact Sheet for Healt hcare Patients: https://www.Cmxtwenty/ Documents/Xpert %20Xpress %81GULP-FuB-0-F siddhartha-RSV/30 2-4507%20Rev.%2 0B%20Pati ent%20Fact%20Sh eet.pdf SARS-COV-2 SLSL Performed at:[facility] PERFORMING LAB [facility] [id number] (test code = Ignacio Nelson 18376-2) [place] [address] ph: [phone] [facility]omatic [facility]2020-09-22 12:08:00 Test Item Value Reference Range Interpretation Comments SARS-COV2/RT-PCR Negative Not Detected, Performanc e of the Xpert (test code = Negative, See Xpress 03609-9) external report SARS-CoV-2/F siddhartha/RSV test for linked [...] Fact Sh eet for Healthcare Prov iders: https://www.KROGNI.com/ Documents/Xpert %20Xpress %62UCWG-GwF-8-F siddhartha-RSV/30 2-4508%20Rev.%2 0B%20HCP% 20Fact%20Sheet. pdf Fact Sheet for Healt hcare Patients: https://www.cep heid.com/ Documents/Xpert %20Xpress %18IWGF-RmP-1-F siddhartha-RSV/30 2-4507%20Rev.%2 0B%20Pati ent%20Fact%20Sh eet.pdf SARS-COV-2 SLSL Performed at:[facility] PERFORMING LAB Amy [id number] (test code = Ignacio Nelson 21418-7) [place] [address] ph: [phone] [facility]omatic [facility])2020-09-22 12:08:00 Test Item Value Reference Range Interpretation Comments SARS-COV2/RT-PCR Negative Not Detected, Performanc e of the Xpert (test code = Negative, See Xpress 69888-7) external report SARS-CoV-2/F siddhartha/RSV test for linked [...] Fact Sh eet for Healthcare Prov iders: https://www.Cmxtwenty/ Documents/Xpert %20Xpress %52AUKR-AhR-6-F siddhartha-RSV/30 2-4508%20Rev.%2 0B%20HCP% 20Fact%20Sheet. pdf Fact Sheet for Healt hcare Patients: https://www.Cmxtwenty/ Documents/Xpert %20Xpress %34FIQJ-AjT-8-F siddhartha-RSV/30 2-4507%20Rev.%2 0B%20Pati ent%20Fact%20Sh eet.pdf SARS-COV-2 SLSL Performed at:[facility] PERFORMING LAB [place] [id number] (test code = Ignacio Nelson 65694-2) [place] [address] ph: [phone] [facility])2020-09-22 12:08:00 Test Item Value Reference Range Interpretation Comments SARS-COV2/RT-PCR Negative Not Detected, Performanc e of the Xpert (test code = Negative, See Xpress 0963827) external report SARS-CoV-2/F siddhartha/RSV test for linked [...] sooner.Fact She et for Healthcare Prov iders: https://www.Cmxtwenty/ Documents/Xpert %20Xpress %24FGKN-MqI-1-F siddhartha-RSV/30 2-4508%20Rev.%2 0B%20HCP% 20Fact%20Sheet. pdfFact Sheet for Healt hcare Patients: https://www.Cmxtwenty/ Documents/Xpert %20Xpress %79FQIO-IoY-4-F siddhartha-RSV/30 2-4507%20Rev.%2 0B%20Pati ent%20Fact%20Sh eet.pdf SARS-COV-2 SLSL Performed at:[facility] PERFORMING LAB [place] [id number] (test code = [facility] 5020051) [place] [address] ph: [phone] CBC W/PLT COUNT & AUTO [id number] 07:40:00 Test Item Value Reference Range Interpretation [...] H PERCENT (BEAKER) (test code = 2801) PT/[id number] 07:34:00 Test Item Value Reference Interpretation Comments [...] PTT (test code = 28.0 See_Comment Final 75060-6) Information (Auto Output) [Automated message] The system [...] valves. Lab Interpretation Abnormal (test code = 65749-2) [id number]00 Test Item Value Reference Interpretation Comments [...] PTT (test code = 28.0 See_Comment Final 79211-5) Information (Auto Output) [Automated message] The system [...] valves. Lab Interpretation Abnormal (test code = 74562-9) [facility][id number] 07:34:00 Test Item Value Reference Interpretation Comments [...] PTT (test code = 28.0 See_Comment Final 51687-2) Information (Auto Output) [Automated message] The system [...] valves. Lab Interpretation Abnormal (test code = 34957-9) [facility][id number] 07:34:00 Test Item Value Reference Interpretation Comments [...] PTT (test code = 28.0 See_Comment Final 99302-3) Information (Auto Output) [Automated message] The system [...] valves. Lab Interpretation Abnormal (test code = 10557-1) [facility]rBFK8055-07-50 07:34:00 Test Item Value Reference Interpretation Comments [...] PTT (test code = 28.0 See_Comment Final 50477-6) Information (Auto Output) [Automated message] The system [...] valves. Lab Interpretation Abnormal (test code = 59761-5) [facility]SI4669-71-92 07:34:00 Test Item Value Reference Interpretation Comments [...] PTT (test code = 28.0 See_Comment Final 72967-7) Information (Auto Output) [Automated message] The system [...] valves. Lab Interpretation Abnormal (test code = 86399-6) [id number] 07:34:00 Test Item Value Reference Interpretation Comments [...] PTT (test code = 28.0 See_Comment Final 92503-7) Information (Auto Output) [Automated message] The system [...] valves. Lab Interpretation Abnormal (test code = 63573-2) [id number] 07:34:00 Test Item Value Reference Range Interpretation Comments PROTIME (BEAKER) (test 14.2 seconds 9.3-12.0 H Final Information code = 759) (Auto Output) INR (BEAKER) (test 1.30 See_Comment Final Inf ormation code = 370) (Auto Output) [Automated mess age] The system whic h generated this result transmit josé luis reference range : <=5.90. The reference range was not used to interpret this result as normal/abnormal . PARTIAL THROMBOPLASTIN 28.0 seconds 23.0-35.0 Final Information TIME (BEAKER) (test (Auto Ou tput) code = 760) RECOMMENDED COUMADIN/WARFARIN INR THERAPY RANGESSTANDARD DOSE: 2.0 - 3.0 Includes: PROPHYLAXIS forvenous thrombosis, systemic embolization; TREATMENT for venous thrombosis and/or pulmonary embolus.HIGH RISK: Target INR is 2.5-3.5 for patients with mechanical heart valves.B-TYPE NATRIURETIC FACTOR (BNP)2020-09-22 07:30:00 Test Item Value Reference Range Interpretation Comments B-TYPE NATRIURETIC PEPTIDE 1703 pg/mL 0-100 H (BEAKER) (test code = 700) Sole Molder ID - [id number] [id number] 07:29:00 Test Item Value Reference Range Interpretation Comments Troponin I (test code = 0.05 ng/mL 0-0.15 60769-6) ISSA (test code = ISSA) Troponin I [...] failure, acidosis, acute neurological disease, and persistent tachyarrhythmia.[facility] ID - [id number] Lab Interpretation (test Normal code = 08794-5) [facility] [id number] 07:29:00 Test Item Value Reference Range Interpretation Comments Troponin I (test code = 0.05 ng/mL 0-0.15 07298-3) ISSA (test code = ISSA) Troponin I [...] failure, acidosis, acute neurological disease, and persistent tachyarrhythmia.[facility] ID - [id number] Lab Interpretation (test Normal code = 97732-8) [facility] [id number] 07:29:00 Test Item Value Reference Range Interpretation Comments Troponin I (test code = 0.05 ng/mL 0-0.15 95452-7) ISSA (test code = ISSA) Troponin I [...] failure, acidosis, acute neurological disease, and persistent tachyarrhythmia.[facility] ID - [id number] Lab Interpretation (test Normal code = 89433-2) [facility] [id number] 07:29:00 Test Item Value Reference Range Interpretation Comments Troponin I (test code = 0.05 ng/mL 0-0.15 97256-6) ISSA (test code = ISSA) Troponin I [...] failure, acidosis, acute neurological disease, and persistent tachyarrhythmia.[facility] ID - [id number] Lab Interpretation (test Normal code = 04069-4) [facility] [id number] 07:29:00 Test Item Value Reference Range Interpretation Comments Troponin I (test code = 0.05 ng/mL 0.00-0.15 89395-5) ISSA (test code = ISSA) Troponin I [...] failure, acidosis, acute neurological disease, and persistent tachyarrhythmia.[facility] ID - [id number] Lab Interpretation (test Normal code = 09412-7) [facility] [id number] 07:29:00 Test Item Value Reference Range Interpretation Comments Troponin I (test code = 0.05 ng/mL 0.00-0.15 01821-4) ISSA (test code = ISSA) Troponin I [...] failure, acidosis, acute neurological disease, and persistent tachyarrhythmia.[facility] ID - [id number] Lab Interpretation (test Normal code = 96419-8) [place] [id number] 07:29:00 Test Item Value Reference Range Interpretation Comments Troponin I (test code = 0.05 ng/mL 0.00-0.15 56840-8) ISSA (test code = ISSA) Troponin I [...] failure, acidosis, acute neurological disease, and persistent tachyarrhythmia.[facility] ID - [id number] Lab Interpretation (test Normal code = 15819-4) [facility] [id number] 07:29:00 Test Item Value Reference Range Interpretation [...] failure, acidosis, acute neurological disease, and persistent tachyarrhythmia.Sole Molder ID - [id number] METABOLIC [id number] 07:25:00 Test Item Value Reference Range Interpretation [...] S NOT APPLICABLE FOR DIALYSIS PATIEN TS. Sole Molder ID - [id number] ID - [id number] ID - [id number] ID - [id number] ID - [id number] ID - [id number] ID - [id number] ID - [id number] ID - [id number] ID - [id number] ID - [id number] ID - [id number] ID - [id number], CHEST, 1 VIEW, NON [id number] 06:44:00Reason for exam:->SHORTNESS OF BREATHReason for exam:->CHEST PAINShould this be performed at the bedside?->Yes [facility] 1975 Sex: MFINAL [...] 6:44 AMXR chest 1 view portable / ysfcygj0097-46-46 06:44:00Interface, External Ris In - 09/22/2020 6:47 [...] cardiomegaly.Signed: Moose Petersen Verified Date/Time: 09/22/2020 06:44:53 [facility] / kfvmpmr7044-69-78 06:44:00 Interface, External Ris In - 09/22/2020 [...] Signed: Moose Petersen Verified Date/Time: 09/22/2020 06:44:53 [facility] / rbqhquo1684-67-83 06:44:00 Interface, External Ris In - 09/22/2020 [...] Signed: Moose Petersen Verified Date/Time: 09/22/2020 06:44:53 [facility] / jbpexiq7182-98-40 06:44:00 Interface, External Ris In - 09/22/2020 [...] Signed: Moose Petersen Verified Date/Time: 09/22/2020 06:44:53 [facility] Kznkdxrjwrsumr0251-41-45 06:40:53 Test Item Value Reference Range Interpretation [...] 74 BPM.Abnormal conduction noted: LAFB.T waves abnormal. Denison is normal. Other findings include: prolonged QTc interval. Clinical Impression: abnormal ECG Lab Interpretation Abnormal (test code = 77790-9) [facility] Dpskdhpbyxqjzb1239-92-99 06:40:53 Test Item Value Reference Range Interpretation [...] 74 BPM.Abnormal conduction noted: LAFB.T waves abnormal. [place] is normal. Other findings include: prolonged QTc interval. Clinical Impression: abnormal ECG Lab Interpretation Abnormal (test code = 84919-4) [facility] Kmiomrjxtvbaaj4780-28-76 06:40:53 Test Item Value Reference Range Interpretation [...] 74 BPM.Abnormal conduction noted: LAFB.T waves abnormal. Denison is normal. Other findings include: prolonged QTc interval. Clinical Impression: abnormal ECG Lab Interpretation Abnormal (test code = 55326-7) [facility] Goksadeozydxhg9217-52-16 06:40:53 Test Item Value Reference Range Interpretation Comments ISSA (test code = ISSA) David Riddle MD 09/22/2020 6:48 AMECG/EKG Interpretation Date/Time: 09/22/2020 6:43 AMPerformed by: Dvaid Riddle MDAuthorized by: David Riddle MD The ECG was interpreted by ED physician. The ECG is interpreted as sinus rhythm. Ectopy noted: Pulmonary disease pattern. Rate is normal rate. Heart rate is 74 BPM.Abnormal conduction noted: LAFB.T waves abnormal. Denison is normal. Other findings include: prolonged QTc interval. Clinical Impression: abnormal ECG Lab Interpretation Abnormal (test code = 27724-4) [facility] Tgiubobmrtqufg0036-50-47 06:40:53 Test Item Value Reference Range Interpretation [...] 74 BPM.Abnormal conduction noted: LAFB.T waves abnormal. Denison is normal. Other findings include: prolonged QTc interval. Clinical Impression: abnormal ECG Lab Interpretation Abnormal (test code = 06716-7) [facility] Nefwvnkzlutcto1028-57-83 06:40:53 Test Item Value Reference Range Interpretation [...] 74 BPM.Abnormal conduction noted: LAFB.T waves abnormal. [place]ison is normal. Other findings include: prolonged QTc interval. Clinical Impression: abnormal ECG Lab Interpretation Abnormal (test code = 06126-9) [facility] Iiypyigdgdlijg5581-99-82 06:40:53 Test Item Value Reference Range Interpretation Comments ISSA (test code = ISSA) David Ridlde MD 09/22/2020 6:48 AMECG/EKG Interpretation Date/Time: 09/22/2020 6:43 AMPerformed by: David Riddle MDAuthorized by: David Riddle MD The ECG was interpreted by ED physician. The ECG is interpreted as sinus rhythm. Ectopy noted: Pulmonary disease pattern. Rate is normal rate. Heart rate is 74 BPM.Abnormal conduction noted: LAFB.T waves abnormal. Denison is normal. Other findings include: prolonged QTc interval. Clinical Impression: abnormal ECG Lab Interpretation Abnormal (test code = 25240-0) [facility]-[id number] 00:00:00Ordered by an unspecified provider.[facility]-BNRDTWK6447-32-22 00:00:00 [facility]dered by an unspecified provider[facility]:00Ordered by an unspecified provider.[facility]-[id number] 00:00:00Ordered by an unspecified provider.[facility] Description: Natriuretic peptide B [Mass/volume] in Serum or Egsyye4528-56-70 15:06:00 Test Item Value Reference Range Interpretation Comments B-Type Natriuretic Peptide (test 614.6 pg/mL 0.0-100.0 H code = 80663-7) [facility] Description: Natriuretic peptide B [Mass/volume] in Serum or Ayuojj2974-37-94 15:06:00 Test Item Value Reference Range Interpretation Comments B-Type Natriuretic Peptide (test 614.6 pg/mL 0.0-100.0 H code = 66062-4) [facility] Description: Natriuretic peptide B [Mass/volume] in Serum or Znscfw0040-58-11 15:06:00 Test Item Value Reference Range Interpretation Comments B-Type Natriuretic Peptide (test 614.6 pg/mL 0.0-100.0 H code = 86766-9) [facility]: Natriuretic peptide B [Mass/volume] in Serum or Fjoyop3913-73-70 15:06:00 Test Item Value Reference Range Interpretation Comments B-Type Natriuretic Peptide (test 614.6 pg/mL 0.0-100.0 H code = 05342-6) [facility] Description: Natriuretic peptide B [Mass/volume] in Serum or Accdxd3750-32-94 15:06:00 Test Item Value Reference Range Interpretation Comments B-Type Natriuretic Peptide (test 614.6 pg/mL 0.0-100.0 H code = 02120-8) [facility] Description: Natriuretic peptide B [Mass/volume] in Serum or Hvduay7646-41-07 15:06:00 Test Item Value Reference Range Interpretation Comments B-Type Natriuretic Peptide (test 614.6 pg/mL 0.0-100.0 H code = 09943-9) [facility] Description: Natriuretic peptide B [Mass/volume] in Serum or Ygihnt9705-25-55 15:06:00 Test Item Value Reference Range Interpretation Comments B-Type Natriuretic Peptide (test 614.6 pg/mL 0.0-100.0 H code = 38660-4) [facility] Description: Natriuretic peptide B [Mass/volume] in Serum or Wlaqkx2987-33-56 15:06:00 Test Item Value Reference Range Interpretation Comments B-Type Natriuretic Peptide (test 614.6 pg/mL 0.0-100.0 H code = 71943-9) [facility] Description: Natriuretic peptide B [Mass/volume] in Serum or Ohrxvc8547-94-09 15:06:00 Test Item Value Reference Range Interpretation Comments B-Type Natriuretic Peptide (test 614.6 pg/mL 0.0-100.0 H code = 83871-5) [facility] Description: Natriuretic peptide B [Mass/volume] in Serum or Ofmrjt1059-80-67 15:06:00 Test Item Value Reference Range Interpretation Comments B-Type Natriuretic Peptide (test 614.6 pg/mL 0.0-100.0 H code = 82297-7) [facility] Description: Natriuretic peptide B [Mass/volume] in Serum or Xtadyx9314-07-16 15:06:00 Test Item Value Reference Range Interpretation Comments B-Type Natriuretic Peptide (test 614.6 pg/mL 0.0-100.0 H code = 43256-2) [employer] Description: Lipid Ptebj3499-84-95 01:45:00 Test Item Value Reference Range Interpretation Comments Cholesterol, Total (test code = 207 mg/dL 100-199 H 3-3) Triglycerides (test code = 2571-8) 126 mg/dL 0-149 HDL Cholesterol (test code = 37 mg/dL >39 L 5-9) VLDL Cholesterol [place] (test code = 23 mg/dL 5-40 02075-3) LDL Chol Calc (NIH) (test code = 147 mg/dL 0-99 H 28260-3) Comment: (test code = 34336-7) [employer] Description: Lipid Gyknh5621-30-10 01:45:00 Test Item Value Reference Range Interpretation Comments Cholesterol, Total (test code = 207 mg/dL 100-199 H 3-3) Triglycerides (test code = 2571-8) 126 mg/dL 0-149 HDL Cholesterol (test code = 37 mg/dL >39 L 5-9) VLDL Cholesterol [place] (test code = 23 mg/dL 5-40 25319-5) LDL Chol Calc (NIH) (test code = 147 mg/dL 0-99 H 54551-4) Comment: (test code = 41835-9) [employer] Description: Lipid Tuavk0976-76-34 01:45:00 Test Item Value Reference Range Interpretation Comments Cholesterol, Total (test code = 207 mg/dL 100-199 H 3-3) Triglycerides (test code = 2571-8) 126 mg/dL 0-149 HDL Cholesterol (test code = 37 mg/dL >39 L 5-9) VLDL Cholesterol [place] (test code = 23 mg/dL 5-40 31947-2) LDL Chol Calc (NIH) (test code = 147 mg/dL 0-99 H 05223-7) Comment: (test code = 94442-2) [employer] Description: Lipid Lbnvc0112-65-70 01:45:00 Test Item Value Reference Range Interpretation Comments Cholesterol, Total (test code = 207 mg/dL 100-199 H 3-3) Triglycerides (test code = 2571-8) 126 mg/dL 0-149 HDL Cholesterol (test code = 37 mg/dL >39 L 5-9) VLDL Cholesterol [place] (test code = 23 mg/dL 5-40 07454-3) LDL Chol Calc (NIH) (test code = 147 mg/dL 0-99 H 03080-7) Comment: (test code = 33920-0) [employer] Description: Lipid Gmuuf3974-91-96 01:45:00 Test Item Value Reference Range Interpretation Comments Cholesterol, Total (test code = 207 mg/dL 100-199 H 3-3) Triglycerides (test code = 2571-8) 126 mg/dL 0-149 HDL Cholesterol (test code = 37 mg/dL >39 L 5-9) VLDL Cholesterol [place] (test code = 23 mg/dL 5-40 46205-6) LDL Chol Calc (NIH) (test code = 147 mg/dL 0-99 H 74434-0) Comment: (test code = 85078-8) [employer] Description: Lipid Ikwgf8272-51-62 01:45:00 Test Item Value Reference Range Interpretation Comments Cholesterol, Total (test code = 207 mg/dL 100-199 H 3-3) Triglycerides (test code = 2571-8) 126 mg/dL 0-149 HDL Cholesterol (test code = 37 mg/dL >39 L 5-9) VLDL Cholesterol [place] (test code = 23 mg/dL 5-40 87607-3) LDL Chol Calc (NIH) (test code = 147 mg/dL 0-99 H 13712-4) Comment: (test code = 53528-8) [employer] Description: Lipid Edwfy0238-07-14 01:45:00 Test Item Value Reference Range Interpretation Comments Cholesterol, Total (test code = 207 mg/dL 100-199 H 3-3) Triglycerides (test code = 2571-8) 126 mg/dL 0-149 HDL Cholesterol (test code = 37 mg/dL >39 L 5-9) VLDL Cholesterol [place] (test code = 23 mg/dL 5-40 70221-7) LDL Chol Calc (NIH) (test code = 147 mg/dL 0-99 H 61666-0) Comment: (test code = 21035-3) [employer] Description: Lipid Fdnmn0327-26-11 01:45:00 Test Item Value Reference Range Interpretation Comments Cholesterol, Total (test code = 207 mg/dL 100-199 H 3-3) Triglycerides (test code = 2571-8) 126 mg/dL 0-149 HDL Cholesterol (test code = 37 mg/dL >39 L 2085-9) VLDL Cholesterol [place] (test code = 23 mg/dL 5-40 30076-3) LDL Chol Calc (NIH) (test code = 147 mg/dL 0-99 H 74577-3) Comment: (test code = 11527-6) [employer] Description: Lipid Qanhc4992-80-33 01:45:00 Test Item Value Reference Range Interpretation Comments Cholesterol, Total (test code = 207 mg/dL 100-199 H 3-3) Triglycerides (test code = 2571-8) 126 mg/dL 0-149 HDL Cholesterol (test code = 37 mg/dL >39 L 5-9) VLDL Cholesterol [place] (test code = 23 mg/dL 5-40 65815-0) LDL Chol Calc (NIH) (test code = 147 mg/dL 0-99 H 83502-3) Comment: (test code = 50837-1) [employer] Description: Lipid Hyqzx1096-09-95 01:45:00 Test Item Value Reference Range Interpretation Comments Cholesterol, Total (test code = 207 mg/dL 100-199 H 3-3) Triglycerides (test code = 2571-8) 126 mg/dL 0-149 HDL Cholesterol (test code = 37 mg/dL >39 L 5-9) VLDL Cholesterol [place] (test code = 23 mg/dL 5-40 69000-1) LDL Chol Calc (NIH) (test code = 147 mg/dL 0-99 H 46522-2) Comment: (test code = 12598-8) [employer] Description: Lipid Hgxkm4581-05-51 01:45:00 Test Item Value Reference Range Interpretation Comments Cholesterol, Total (test code = 207 mg/dL 100-199 H 3-3) Triglycerides (test code = 2571-8) 126 mg/dL 0-149 HDL Cholesterol (test code = 37 mg/dL >39 L 2085-9) VLDL Cholesterol [place] (test code = 23 mg/dL 5-40 20126-7) LDL Chol Calc (NIH) (test code = 147 mg/dL 0-99 H 51769-7) Comment: (test code = 49842-8) [facility] Description: Comp. Metabolic Panel (14)2020-08-16 01:19:00 Test Item Value Reference Range Interpretation Comments Glucose (test code 424 mg/dL 65-99 H = 2345-7) BUN (test code = 27 mg/dL 6-24 H 3094-0) Creatinine (test 1.88 mg/dL 0.76-1.27 H code = 2160-0) eGFR If NonAfricn 42 >59 L Am (test code = mL/min/1.73 53034-8) eGFR If Africn Am 48 >59 L [facility] currently (test code = mL/min/1.73 [place] 86974-6) compliance with the current recommendations of the [employer]. [facility] [place] will update re porting as new guidelin es are published from the NKF-ASN Task force.
<br/ >Perfor med by:
[facility] [place] (HD)

BUN/Creatinine 14 9-20 Ratio (test code = 3097-3) Sodium (test code = 138 mmol/L 317-088 5564-2) Potassium (test 4.2 mmol/L 3.5-5.2 code = 2823-3) Chloride (test code 98 mmol/L 96-106 = 2075-0) Carbon Dioxide, 28 mmol/L 20-29 Total (test code = 2027-) Calcium (test code 8.4 mg/dL 8.7-10.2 L = 50389-3) Protein, Total 6.1 g/dL 6.0-8.5 (test code = 2885-2) Albumin (test code 3.0 g/dL 4.0-5.0 L = 1751-7) Globulin, Total 3.1 g/dL 1.5-4.5 (test code = 76152-8) A/G Ratio (test 1.0 1.2-2.2 L code = 1759-0) Bilirubin, Total 0.6 mg/dL 0.0-1.2 (test code = 1975-2) Alkaline 130 IU/L 48-121 H Phosphatase (test Pl ease note code = 6768-6) reference int erval change
<b r/>Perf ormed by:
[facility] ([place])

AST (SGOT) (test 15 IU/L 0-40 code = 1920-8) ALT (SGPT) (test 18 IU/L 0-44 code = 1742-6) [facility] Description: Comp. Metabolic Panel (2020-08-16 01:19:00 Test Item Value Reference Range Interpretation Comments Glucose (test code 424 mg/dL 65-99 H = 2345-7) BUN (test code = 27 mg/dL 6-24 H 3094-0) Creatinine (test 1.88 mg/dL 0.76-1.27 H code = 2160-0) eGFR If NonAfricn 42 >59 L Am (test code = mL/min/1.73 95311-5) eGFR If Africn Am 48 >59 L [facility] currently (test code = mL/min/1.73 [place] [address]-9) compliance with the current recommendations of the [employer]. [place] will update re porting as new guidelin es are published from the NKF-ASN Task force.
<br/ >Perfor med by:
[facility] [place] [facility] ([place])

BUN/Creatinine 14 9-20 Ratio (test code = 3097-3) Sodium (test code = 138 mmol/L 930-088 9762-2) Potassium (test 4.2 mmol/L 3.5-5.2 code = 2823-3) Chloride (test code 98 mmol/L 96-106 = 2075-0) Carbon Dioxide, 28 mmol/L 20-29 Total (test code = 2027-) Calcium (test code 8.4 mg/dL 8.7-10.2 L = 58938-7) Protein, Total 6.1 g/dL 6.0-8.5 (test code = 2885-2) Albumin (test code 3.0 g/dL 4.0-5.0 L = 1751-7) Globulin, Total 3.1 g/dL 1.5-4.5 (test code = 95529-1) A/G Ratio (test 1.0 1.2-2.2 L code = 1759-0) Bilirubin, Total 0.6 mg/dL 0.0-1.2 (test code = 1975-2) Alkaline 130 IU/L 48-121 H Phosphatase (test Pl ease note code = 6768-6) reference int erval change
<b r/>Perf ormed by:
[facility] ([place])

AST (SGOT) (test 15 IU/L 0-40 code = 1920-8) ALT (SGPT) (test 18 IU/L 0-44 code = 1742-6) [facility] Description: Comp. Metabolic Panel ()2020-08-16 01:19:00 Test Item Value Reference Range Interpretation Comments Glucose (test code 424 mg/dL 65-99 H = 2345-7) BUN (test code = 27 mg/dL 6-24 H 3094-0) Creatinine (test 1.88 mg/dL 0.76-1.27 H code = 2160-0) eGFR If NonAfricn 42 >59 L Am (test code = mL/min/1.73 74102-4) eGFR If Africn Am 48 >59 L [facility] currently (test code = mL/min/1.73 [place] 665[address]-6) compliance with the current recommendations of the National Kidney Foundation. [place] will update re porting as new guidelin es are published from the NKF-ASN Task force.
<br/ >Perfor med by:
[facility] [place] [facility] ([place])

BUN/Creatinine 14 9-20 Ratio (test code = 3097-3) Sodium (test code = 138 mmol/L 335-414 6876-2) Potassium (test 4.2 mmol/L 3.5-5.2 code = 2823-3) Chloride (test code 98 mmol/L 96-106 = 2075-0) Carbon Dioxide, 28 mmol/L 20-29 Total (test code = 2027-) Calcium (test code 8.4 mg/dL 8.7-10.2 L = 75605-8) Protein, Total 6.1 g/dL 6.0-8.5 (test code = 2885-2) Albumin (test code 3.0 g/dL 4.0-5.0 L = 1751-7) Globulin, Total 3.1 g/dL 1.5-4.5 (test code = 05503-6) A/G Ratio (test 1.0 1.2-2.2 L code = 1759-0) Bilirubin, Total 0.6 mg/dL 0.0-1.2 (test code = 1975-2) Alkaline 130 IU/L 48-121 H Phosphatase (test Pl ease note code = 6768-6) reference int erval change
<b r/>Perf ormed by:
L [facility] ([place])

AST (SGOT) (test 15 IU/L 0-40 code = 1920-8) ALT (SGPT) (test 18 IU/L 0-44 code = 1742-6) [facility] Description: Comp. Metabolic Panel (14)2020-08-16 01:19:00 Test Item Value Reference Range Interpretation Comments Glucose (test code 424 mg/dL 65-99 H = 2345-7) BUN (test code = 27 mg/dL 6-24 H 3094-0) Creatinine (test 1.88 mg/dL 0.76-1.27 H code = 2160-0) eGFR If NonAfricn 42 >59 L Am (test code = mL/min/1.73 39614-8) eGFR If Africn Am 48 >59 L [facility] currently (test code = mL/min/1.73 [place] [address]-6) compliance with the current recommendations of the National Kidney Foundation. [place] will update re porting as new guidelin es are published from the NKF-ASN Task force.
<br/ >Perfor med by:
[facility] [place] [facility] ([place])

BUN/Creatinine 14 9-20 Ratio (test code = 3097-3) Sodium (test code = 138 mmol/L 263-097 5773-2) Potassium (test 4.2 mmol/L 3.5-5.2 code = 2823-3) Chloride (test code 98 mmol/L 96-106 = 2075-0) Carbon Dioxide, 28 mmol/L 20-29 Total (test code = 2027-) Calcium (test code 8.4 mg/dL 8.7-10.2 L = 80185-6) Protein, Total 6.1 g/dL 6.0-8.5 (test code = 2885-2) Albumin (test code 3.0 g/dL 4.0-5.0 L = 1751-7) Globulin, Total 3.1 g/dL 1.5-4.5 (test code = 20369-3) A/G Ratio (test 1.0 1.2-2.2 L code = 1759-0) Bilirubin, Total 0.6 mg/dL 0.0-1.2 (test code = 1974-2) Alkaline 130 IU/L 48-121 H Phosphatase (test Pl ease note code = 6768-6) reference int erval change
<b r/>Perf ormed by:
[facility] ([place])

AST (SGOT) (test 15 IU/L 0-40 code = 1920-8) ALT (SGPT) (test 18 IU/L 0-44 code = 1742-6) [facility] Description: Comp. Metabolic Panel (14)2020-08-16 01:19:00 Test Item Value Reference Range Interpretation Comments Glucose (test code 424 mg/dL 65-99 H = 2345-7) BUN (test code = 27 mg/dL 6-24 H 3094-0) Creatinine (test 1.88 mg/dL 0.76-1.27 H code = 2160-0) eGFR If NonAfricn 42 >59 L Am (test code = mL/min/1.73 91015-6) eGFR If Africn Am 48 >59 L [facility] currently (test code = mL/min/1.73 [place] [address]-8) compliance with the current recommendations of the National Kidney Foundation. [place] will update re porting as new guidelin es are published from the NKF-ASN Task force.
<br/ >Perfor med by:
[facility] [place] [facility] ([place])

BUN/Creatinine 14 9-20 Ratio (test code = 3097-3) Sodium (test code = 138 mmol/L 233-753 1956-2) Potassium (test 4.2 mmol/L 3.5-5.2 code = 2823-3) Chloride (test code 98 mmol/L 96-106 = 2075-0) Carbon Dioxide, 28 mmol/L 20-29 Total (test code = 2027-) Calcium (test code 8.4 mg/dL 8.7-10.2 L = 20666-2) Protein, Total 6.1 g/dL 6.0-8.5 (test code = 2885-2) Albumin (test code 3.0 g/dL 4.0-5.0 L = 1751-7) Globulin, Total 3.1 g/dL 1.5-4.5 (test code = 49252-4) A/G Ratio (test 1.0 1.2-2.2 L code = 1759-0) Bilirubin, Total 0.6 mg/dL 0.0-1.2 (test code = 1974-2) Alkaline 130 IU/L 48-121 H Phosphatase (test Pl ease note code = 6768-6) reference int erval change
<b r/>Perf ormed by:
[facility] ([place])

AST (SGOT) (test 15 IU/L 0-40 code = 1920-8) ALT (SGPT) (test 18 IU/L 0-44 code = 1742-6) [facility] Description: Comp. Metabolic Panel (14)2020-08-16 01:19:00 Test Item Value Reference Range Interpretation Comments Glucose (test code 424 mg/dL 65-99 H = 2345-7) BUN (test code = 27 mg/dL 6-24 H 3094-0) Creatinine (test 1.88 mg/dL 0.76-1.27 H code = 2160-0) eGFR If NonAfricn 42 >59 L Am (test code = mL/min/1.73 77838-0) eGFR If Africn Am 48 >59 L [facility] currently (test code = mL/min/1.73 [place] 76814-7) compliance with the current recommendations of the National Kidney Foundation. [place] will update re porting as new guidelin es are published from the NKF-ASN Task force.
<br/ >Perfor med by:
[facility] [place] [facility] ([place])

BUN/Creatinine 14 9-20 Ratio (test code = 3097-3) Sodium (test code = 138 mmol/L 783-194 9584-2) Potassium (test 4.2 mmol/L 3.5-5.2 code = 2823-3) Chloride (test code 98 mmol/L 96-106 = 2075-0) Carbon Dioxide, 28 mmol/L 20-29 Total (test code = 2027-9) Calcium (test code 8.4 mg/dL 8.7-10.2 L = 77605-6) Protein, Total 6.1 g/dL 6.0-8.5 (test code = 2885-2) Albumin (test code 3.0 g/dL 4.0-5.0 L = 1751-7) Globulin, Total 3.1 g/dL 1.5-4.5 (test code = 24067-5) A/G Ratio (test 1.0 1.2-2.2 L code = 1759-0) Bilirubin, Total 0.6 mg/dL 0.0-1.2 (test code = 1975-2) Alkaline 130 IU/L 48-121 H Phosphatase (test Pl ease note code = 6768-6) reference int erval change
<b r/>Perf ormed by:
[facility] ([place])

AST (SGOT) (test 15 IU/L 0-40 code = 1920-8) ALT (SGPT) (test 18 IU/L 0-44 code = 1742-6) [facility] Description: Comp. Metabolic Panel (142020-08-16 01:19:00 Test Item Value Reference Range Interpretation Comments Glucose (test code 424 mg/dL 65-99 H = 2345-7) BUN (test code = 27 mg/dL 6-24 H 3094-0) Creatinine (test 1.88 mg/dL 0.76-1.27 H code = 2160-0) eGFR If NonAfricn 42 >59 L Am (test code = mL/min/1.73 59454-7) eGFR If Africn Am 48 >59 L [facility] currently (test code = mL/min/1.73 [place] [address]-9) compliance with the current recommendations of the National Kidney Foundation. [place] will update re porting as new guidelin es are published from the NKF-ASN Task force.
<br/ >Perfor med by:
[facility] [place] [facility] ([place])

BUN/Creatinine 14 9-20 Ratio (test code = 3097-3) Sodium (test code = 138 mmol/L 791-856 4154-2) Potassium (test 4.2 mmol/L 3.5-5.2 code = 2823-3) Chloride (test code 98 mmol/L 96-106 = 2075-0) Carbon Dioxide, 28 mmol/L 20-29 Total (test code = 2027-) Calcium (test code 8.4 mg/dL 8.7-10.2 L = 86915-7) Protein, Total 6.1 g/dL 6.0-8.5 (test code = 2885-2) Albumin (test code 3.0 g/dL 4.0-5.0 L = 1751-7) Globulin, Total 3.1 g/dL 1.5-4.5 (test code = 67996-4) A/G Ratio (test 1.0 1.2-2.2 L code = 1759-0) Bilirubin, Total 0.6 mg/dL 0.0-1.2 (test code = 1975-2) Alkaline 130 IU/L 48-121 H Phosphatase (test Pl ease note code = 6768-6) reference int erval change
<b r/>Perf ormed by:
[facility] ([place])

AST (SGOT) (test 15 IU/L 0-40 code = 1920-8) ALT (SGPT) (test 18 IU/L 0-44 code = 1742-6) [facility] Description: Comp. Metabolic Panel (142020-08-16 01:19:00 Test Item Value Reference Range Interpretation Comments Glucose (test code 424 mg/dL 65-99 H = 2345-7) BUN (test code = 27 mg/dL 6-24 H 3094-0) Creatinine (test 1.88 mg/dL 0.76-1.27 H code = 2160-0) eGFR If NonAfricn 42 >59 L Am (test code = mL/min/1.73 58921-3) eGFR If Africn Am 48 >59 L [facility] currently (test code = mL/min/1.73 [place] [address]-4) compliance with the current recommendations of the National Kidney Foundation. [place] will update re porting as new guidelin es are published from the NKF-ASN Task force.
<br/ >Perfor med by:
[facility] [place] [facility] ([place])

BUN/Creatinine 14 9-20 Ratio (test code = 3097-3) Sodium (test code = 138 mmol/L 741-734 9889-2) Potassium (test 4.2 mmol/L 3.5-5.2 code = 2823-3) Chloride (test code 98 mmol/L 96-106 = 2075-0) Carbon Dioxide, 28 mmol/L 20-29 Total (test code = 2027-9) Calcium (test code 8.4 mg/dL 8.7-10.2 L = 20146-2) Protein, Total 6.1 g/dL 6.0-8.5 (test code = 2885-2) Albumin (test code 3.0 g/dL 4.0-5.0 L = 1751-7) Globulin, Total 3.1 g/dL 1.5-4.5 (test code = 63056-2) A/G Ratio (test 1.0 1.2-2.2 L code = 1759-0) Bilirubin, Total 0.6 mg/dL 0.0-1.2 (test code = 1975-2) Alkaline 130 IU/L 48-121 H Phosphatase (test Pl ease note code = 6768-6) reference int erval change
<b r/>Perf ormed by:
[facility] ([place])

AST (SGOT) (test 15 IU/L 0-40 code = 1920-8) ALT (SGPT) (test 18 IU/L 0-44 code = 1742-6) [facility] Description: Comp. Metabolic Panel (14)2020-08-16 01:19:00 Test Item Value Reference Range Interpretation Comments Glucose (test code 424 mg/dL 65-99 H = 2345-7) BUN (test code = 27 mg/dL 6-24 H 3094-0) Creatinine (test 1.88 mg/dL 0.76-1.27 H code = 2160-0) eGFR If NonAfricn 42 >59 L Am (test code = mL/min/1.73 95741-8) eGFR If Africn Am 48 >59 L [facility] currently (test code = mL/min/1.73 [place] [address]-5) compliance with the current recommendations of the National Kidney Foundation. [place] will update re porting as new guidelin es are published from the NKF-ASN Task force.
<br/ >Perfor med by:
[facility] [place] [facility] ([place])

BUN/Creatinine 14 9-20 Ratio (test code = 3097-3) Sodium (test code = 138 mmol/L 399-303 8545-2) Potassium (test 4.2 mmol/L 3.5-5.2 code = 2823-3) Chloride (test code 98 mmol/L 96-106 = 5-0) Carbon Dioxide, 28 mmol/L 20-29 Total (test code = 2027-) Calcium (test code 8.4 mg/dL 8.7-10.2 L = 91440-8) Protein, Total 6.1 g/dL 6.0-8.5 (test code = 2885-2) Albumin (test code 3.0 g/dL 4.0-5.0 L = 1751-7) Globulin, Total 3.1 g/dL 1.5-4.5 (test code = 56819-4) A/G Ratio (test 1.0 1.2-2.2 L code = 1759-0) Bilirubin, Total 0.6 mg/dL 0.0-1.2 (test code = 1974-2) Alkaline 130 IU/L 48-121 H Phosphatase (test Pl ease note code = 6768-6) reference int erval change
<b r/>Perf ormed by:
[facility] ([place])

AST (SGOT) (test 15 IU/L 0-40 code = 1920-8) ALT (SGPT) (test 18 IU/L 0-44 code = 1742-6) [facility] Description: Comp. Metabolic Panel (14)2020-08-16 01:19:00 Test Item Value Reference Range Interpretation Comments Glucose (test code 424 mg/dL 65-99 H = 2345-7) BUN (test code = 27 mg/dL 6-24 H 3094-0) Creatinine (test 1.88 mg/dL 0.76-1.27 H code = 2160-0) eGFR If NonAfricn 42 >59 L Am (test code = mL/min/1.73 75057-7) eGFR If Africn Am 48 >59 L [facility] currently (test code = mL/min/1.73 [place] [address]-6) compliance with the current recommendations of the National Kidney Foundation. [place] will update re porting as new guidelin es are published from the NKF-ASN Task force.
<br/ >Perfor med by:
[facility] [place] [facility] ([place])

BUN/Creatinine 14 9-20 Ratio (test code = 3097-3) Sodium (test code = 138 mmol/L 895-890 0604-2) Potassium (test 4.2 mmol/L 3.5-5.2 code = 2823-3) Chloride (test code 98 mmol/L 96-106 = 2075-0) Carbon Dioxide, 28 mmol/L 20-29 Total (test code = 2027-) Calcium (test code 8.4 mg/dL 8.7-10.2 L = 35597-4) Protein, Total 6.1 g/dL 6.0-8.5 (test code = 2885-2) Albumin (test code 3.0 g/dL 4.0-5.0 L = 1751-7) Globulin, Total 3.1 g/dL 1.5-4.5 (test code = 02091-3) A/G Ratio (test 1.0 1.2-2.2 L code = 1759-0) Bilirubin, Total 0.6 mg/dL 0.0-1.2 (test code = 1975-2) Alkaline 130 IU/L 48-121 H Phosphatase (test Pl ease note code = 6768-6) reference int erval change
<b r/>Perf ormed by:
[facility] ([place])

AST (SGOT) (test 15 IU/L 0-40 code = 1920-8) ALT (SGPT) (test 18 IU/L 0-44 code = 1742-6) [facility] Description: Comp. Metabolic Panel (14)2020-08-16 01:19:00 Test Item Value Reference Range Interpretation Comments Glucose (test code 424 mg/dL 65-99 H = 2345-7) BUN (test code = 27 mg/dL 6-24 H 3094-0) Creatinine (test 1.88 mg/dL 0.76-1.27 H code = 2160-0) eGFR If NonAfricn 42 >59 L Am (test code = mL/min/1.73 93952-7) eGFR If Africn Am 48 >59 L [facility] currently (test code = mL/min/1.73 [place] [address]-0) compliance with the current recommendations of the National Kidney Foundation. [place] will update re porting as new guidelin es are published from the NKF-ASN Task force.
<br/ >Perfor med by:
[facility] [place] [facility] ([place])

BUN/Creatinine 14 9-20 Ratio (test code = 3097-3) Sodium (test code = 138 mmol/L 948-916 3838-2) Potassium (test 4.2 mmol/L 3.5-5.2 code = 2823-3) Chloride (test code 98 mmol/L 96-106 = 2075-0) Carbon Dioxide, 28 mmol/L 20-29 Total (test code = 2027-) Calcium (test code 8.4 mg/dL 8.7-10.2 L = 76876-5) Protein, Total 6.1 g/dL 6.0-8.5 (test code = 2885-2) Albumin (test code 3.0 g/dL 4.0-5.0 L = 1751-7) Globulin, Total 3.1 g/dL 1.5-4.5 (test code = 49565-5) A/G Ratio (test 1.0 1.2-2.2 L code = 1759-0) Bilirubin, Total 0.6 mg/dL 0.0-1.2 (test code = 1975-2) Alkaline 130 IU/L 48-121 H Phosphatase (test Pl ease note code = 6768-6) reference int erval change
<b r/>Perf ormed by:
L [facility] ([place])

AST (SGOT) (test 15 IU/L 0-40 code = 1920-8) ALT (SGPT) (test 18 IU/L 0-44 code = 1742-6) [facility] Description: Hemoglobin A1c/Hemoglobin.total in Blood 2020-08-16 00:35:00 Test Item Value Reference Range Interpretation Comments Hemoglobin A1c (test code 11.6 % 4.8-5.6 H = 4548-4) . Prediabetes: 5. 7 - 6.4 Diabete s: >6.4 Glycemi c control for niall lts with diabetes: <7.0

P erforme d by:
[facility]

[facility] Description: Hemoglobin A1c/Hemoglobin.total in Blood 2020-08-16 00:35:00 Test Item Value Reference Range Interpretation Comments Hemoglobin A1c (test code 11.6 % 4.8-5.6 H = 4548-4) . Prediabetes: 5. 7 - 6.4 Diabete s: >6.4 Glycemi c control for niall lts with diabetes: <7.0

P erforme d by:
[facility] ([place]

[facility] Description: Hemoglobin A1c/Hemoglobin.total in Blood 2020-08-16 00:35:00 Test Item Value Reference Range Interpretation Comments Hemoglobin A1c (test code 11.6 % 4.8-5.6 H = 4548-4) . Prediabetes: 5. 7 - 6.4 Diabete s: >6.4 Glycemi c control for niall lts with diabetes: <7.0

P erforme d by:
[facility] [place] ()

[facility]: Hemoglobin A1c/Hemoglobin.total in Blood 2020-08-16 00:35:00 Test Item Value Reference Range Interpretation Comments Hemoglobin A1c (test code 11.6 % 4.8-5.6 H = 4548-4) . Prediabetes: 5. 7 - 6.4 Diabete s: >6.4 Glycemi c control for niall lts with diabetes: <7.0

P erforme d by:
[facility] ()

[facility]: Hemoglobin A1c/Hemoglobin.total in Blood 2020-08-16 00:35:00 Test Item Value Reference Range Interpretation Comments Hemoglobin A1c (test code 11.6 % 4.8-5.6 H = 4548-4) . Prediabetes: 5. 7 - 6.4 Diabete s: >6.4 Glycemi c control for niall lts with diabetes: <7.0

P erforme d by:
[facility] ([place])

[facility]: Hemoglobin A1c/Hemoglobin.total in Blood 2020-08-16 00:35:00 Test Item Value Reference Range Interpretation Comments Hemoglobin A1c (test code 11.6 % 4.8-5.6 H = 4548-4) . Prediabetes: 5. 7 - 6.4 Diabete s: >6.4 Glycemi c control for niall lts with diabetes: <7.0

P erforme d by:
[facility] ()

[facility]: Hemoglobin A1c/Hemoglobin.total in Blood 2020-08-16 00:35:00 Test Item Value Reference Range Interpretation Comments Hemoglobin A1c (test code 11.6 % 4.8-5.6 H = 4548-4) . Prediabetes: 5. 7 - 6.4 Diabete s: >6.4 Glycemi c control for niall lts with diabetes: <7.0

P erforme d by:
[facility] ([place])

[facility] Description: Hemoglobin A1c/Hemoglobin.total in Blood 2020-08-16 00:35:00 Test Item Value Reference Range Interpretation Comments Hemoglobin A1c (test code 11.6 % 4.8-5.6 H = 4548-4) . Prediabetes: 5. 7 - 6.4 Diabete s: >6.4 Glycemi c control for niall lts with diabetes: <7.0

P erforme d by:
[facility] ()

[facility]: Hemoglobin A1c/Hemoglobin.total in Blood 2020-08-16 00:35:00 Test Item Value Reference Range Interpretation Comments Hemoglobin A1c (test code 11.6 % 4.8-5.6 H = 4548-4) . Prediabetes: 5. 7 - 6.4 Diabete s: >6.4 Glycemi c control for niall lts with diabetes: <7.0

P erforme d by:
[facility] ([place])

[facility]: Hemoglobin A1c/Hemoglobin.total in Blood 2020-08-16 00:35:00 Test Item Value Reference Range Interpretation Comments Hemoglobin A1c (test code 11.6 % 4.8-5.6 H = 4548-4) . Prediabetes: 5. 7 - 6.4 Diabete s: >6.4 Glycemi c control for niall lts with diabetes: <7.0

P erforme d by:
[facility] ([place])

[facility] Description: Hemoglobin A1c/Hemoglobin.total in Blood 2020-08-16 00:35:00 Test Item Value Reference Range Interpretation Comments Hemoglobin A1c (test code 11.6 % 4.8-5.6 H = 4548-4) . Prediabetes: 5. 7 - 6.4 Diabete s: >6.4 Glycemi c control for niall lts with diabetes: <7.0

P erforme d by:
[facility] ([place])

[facility] and screen, [id number] 19:24:00 Test Item Value Reference Range Interpretation Comments ABO/RH AUTOMATED (BEAKER) (test A POSITIVE ECHO code = 2260) Ab Scrn (test code = 890-4) [facility] [id number] 19:24:00 Test Item Value Reference Range Interpretation Comments ABO/RH AUTOMATED (BEAKER) (test A POSITIVE ECHO code = 2260) Ab Scrn (test code = 890-4) [facility] [id number] 19:24:00 Test Item Value Reference Range Interpretation Comments ABO/RH AUTOMATED (BEAKER) (test A POSITIVE ECHO code = 2260) Ab Scrn (test code = 890-4) [facility]IVE [facility], [id number] 19:24:00 Test Item Value Reference Range Interpretation Comments ABO/RH AUTOMATED (BEAKER) (test A POSITIVE ECHO code = 2260) Ab Scrn (test code = 890-4) [facility], [id number] 19:24:00 Test Item Value Reference Range Interpretation Comments ABO/RH AUTOMATED (BEAKER) (test A POSITIVE ECHO code = 2260) Ab Scrn (test code = 890-4) [facility], [id number] 19:24:00 Test Item Value Reference Range Interpretation Comments ABO/RH AUTOMATED (BEAKER) (test A POSITIVE ECHO code = 2260) Ab Scrn (test code = 890-4) [facility], [id number] 19:24:00 Test Item Value Reference Range Interpretation Comments ABO/RH AUTOMATED (BEAKER) (test A POSITIVE ECHO code = 2260) Ab Scrn (test code = 890-4) NEGATIVE [facility]CHO [facility] [id number] 19:12:00 Test Item Value Reference Range Interpretation Comments Protein, Total (test 6.9 See_Comment [Autom ated code = 2885-2) message] The system which generated this result transmit josé luis reference range : 6.0 - 8.5 gm/dL . The reference range was not u sed to interpret th is result as normal/abnormal . Albumin (test code = 3.3 g/dL 3.5-5 L 13867-2) Alkaline Phosphatase 97 U/L 30-115 (test code = 6768-6) Total Bilirubin (test 0.9 mg/dL 0.1-1.2 code = 1975-2) Sodium (test code = 137 meq/L 121-014 7502-2) Potassium (test code 4.5 meq/L 3.6-5.5 = 2823-3) Chloride (test code = 100 meq/L 98-106 2075-0) CO2 (test code = 26 meq/L 20-29 2028-9) BUN (test code = 51 mg/dL 10-26 H 3094-0) Creatinine (test code 1.87 mg/dL 0.5-1.2 H = 2160-0) Glucose (test code = 267 mg/dL 70-110 H 2345-7) Calcium (test code = 9.1 mg/dL 8.5-10.5 59432-2) AST (test code = 18 U/L 5-40 1920-8) ALT (test code = 23 U/L 5-50 1742-6) EGFR (test code = 39 mL/min/1.73 [place] [address]-1) NOT ACCURATE CREATININE CLEARANCE IN PREDICTING GLOMERULAR FILTRATION RATE . ESTIMATED GFR I S NOT APPLICABLE FOR DIALYSIS PATIEN TS. ISSA (test code = ISSA) Sole Molder ID - [id number] r ID - [id number] r ID - [id number] r ID - [id number] r ID - [id number] r ID - [id number] r ID - [id number] r ID - [id number] r ID - [id number] r ID - [id number] r ID - [id number] r ID - [id number] r ID - [id number] r ID - [id number] r ID - [id number] r ID - [id number] r ID - [id number] r ID - [id number] r ID - [id number] Lab Interpretation Abnormal (test code = 74438-7) [id number] 19:12:00 Test Item Value Reference Range Interpretation Comments Protein, Total (test 6.9 See_Comment [Autom ated code = 2885-2) message] The system which generated this result transmit josé luis reference range : 6.0 - 8.5 gm/dL . The reference range was not u sed to interpret th is result as normal/abnormal . Albumin (test code = 3.3 g/dL 3.5-5 L 87185-6) Alkaline Phosphatase 97 U/L 30-115 (test code = 6768-6) Total Bilirubin (test 0.9 mg/dL 0.1-1.2 code = 1974-2) Sodium (test code = 137 meq/L 236-350 3516-2) Potassium (test code 4.5 meq/L 3.6-5.5 = 2823-3) Chloride (test code = 100 meq/L 98-106 2074-0) CO2 (test code = 26 meq/L 20-29 2027-9) BUN (test code = 51 mg/dL 10-26 H 3094-0) Creatinine (test code 1.87 mg/dL 0.5-1.2 H = 2160-0) Glucose (test code = 267 mg/dL 70-110 H 2345-7) Calcium (test code = 9.1 mg/dL 8.5-10.5 44026-2) AST (test code = 18 U/L 5-40 1920-8) ALT (test code = 23 U/L 5-50 2-6) EGFR (test code = 39 mL/min/1.73 [place] [address]-5) NOT ACCURATE CREATININE CLEARANCE IN PREDICTING GLOMERULAR FILTRATION RATE . ESTIMATED GFR I S NOT APPLICABLE FOR DIALYSIS PATIEN TS. PARSONS (test code = ISSA) [employer] ID - [id number] r ID - [id number] r ID - [id number] r ID - [id number] r ID - [id number] r ID - [id number] r ID - [id number] r ID - [id number] r ID - [id number] r ID - [id number] r ID - [id number] r ID - [id number] r ID - [id number] r ID - [id number] r ID - [id number] r ID - [id number] r ID - [id number] r ID - [id number] r ID - [id number] Lab Interpretation Abnormal (test code = 85262-9) [facility] [id number] 19:12:00 Test Item Value Reference Range Interpretation Comments Protein, Total (test 6.9 See_Comment [Autom ated code = 2885-2) message] The system which generated this result transmit josé luis reference range : 6.0 - 8.5 gm/dL . The reference range was not u sed to interpret th is result as normal/abnormal . Albumin (test code = 3.3 g/dL 3.5-5 L 09224-9) Alkaline Phosphatase 97 U/L 30-115 (test code = 6768-6) Total Bilirubin (test 0.9 mg/dL 0.1-1.2 code = 1975-2) Sodium (test code = 137 meq/L 478-457 8273-2) Potassium (test code 4.5 meq/L 3.6-5.5 = 2823-3) Chloride (test code = 100 meq/L 98-106 2074-0) CO2 (test code = 26 meq/L 20-29 2027-) BUN (test code = 51 mg/dL 10-26 H 4-0) Creatinine (test code 1.87 mg/dL 0.5-1.2 H = 2160-0) Glucose (test code = 267 mg/dL 70-110 H 2345-7) Calcium (test code = 9.1 mg/dL 8.5-10.5 71823-9) AST (test code = 18 U/L 5-40 1920-8) ALT (test code = 23 U/L 5-50 1742-6) EGFR (test code = 39 mL/min/1.73 [place] [address]-8) NOT ACCURATE CREATININE CLEARANCE IN PREDICTING GLOMERULAR FILTRATION RATE . ESTIMATED GFR I S NOT APPLICABLE FOR DIALYSIS PATIEN TS. ISSA (test code = ISSA) Sole Molder ID - [id number] r ID - [id number] r ID - [id number] r ID - [id number] r ID - [id number] r ID - [id number] r ID - [id number] r ID - [id number] r ID - [id number] r ID - [id number] r ID - [id number] r ID - [id number] r ID - [id number] r ID - [id number] r ID - [id number] r ID - [id number] r ID - [id number] r ID - [id number] r ID - [id number] Lab Interpretation Abnormal (test code = 85783-8) [facility] [id number] 19:12:00 Test Item Value Reference Range Interpretation Comments Protein, Total (test 6.9 See_Comment [Autom ated code = 2885-2) message] The system which generated this result transmit josé luis reference range : 6.0 - 8.5 gm/dL . The reference range was not u sed to interpret th is result as normal/abnormal . Albumin (test code = 3.3 g/dL 3.5-5 L 72608-7) Alkaline Phosphatase 97 U/L 30-115 (test code = 6768-6) Total Bilirubin (test 0.9 mg/dL 0.1-1.2 code = 1974-2) Sodium (test code = 137 meq/L 466-219 1741-2) Potassium (test code 4.5 meq/L 3.6-5.5 = 2823-3) Chloride (test code = 100 meq/L 98-106 2075-0) CO2 (test code = 26 meq/L 20-29 8-9) BUN (test code = 51 mg/dL 10-26 H 3094-0) Creatinine (test code 1.87 mg/dL 0.5-1.2 H = 2160-0) Glucose (test code = 267 mg/dL 70-110 H 2345-7) Calcium (test code = 9.1 mg/dL 8.5-10.5 59262-9) AST (test code = 18 U/L 5-40 1920-8) ALT (test code = 23 U/L 5-50 1742-6) EGFR (test code = 39 mL/min/1.73 [place] [address]-0) NOT ACCURATE CREATININE CLEARANCE IN PREDICTING GLOMERULAR FILTRATION RATE . ESTIMATED GFR I S NOT APPLICABLE FOR DIALYSIS PATIEN TS. ISSA (test code = ISSA) Sole Molder ID - [id number] r ID - [id number] r ID - [id number] r ID - [id number] r ID - [id number] r ID - [id number] r ID - [id number] r ID - [id number] r ID - [id number] r ID - [id number] r ID - [id number] r ID - [id number] r ID - [id number] r ID - [id number] r ID - [id number] r ID - [id number] r ID - [id number] r ID - [id number] r ID - [id number] Lab Interpretation Abnormal (test code = 64857-8) [facility] [id number] 19:12:00 Test Item Value Reference Range Interpretation Comments Protein, Total (test 6.9 See_Comment [Autom ated code = 2885-2) message] The system which generated this result transmit josé luis reference range : 6.0 - 8.5 gm/dL . The reference range was not u sed to interpret th is result as normal/abnormal . Albumin (test code = 3.3 g/dL 3.5-5.0 L 20134-2) Alkaline Phosphatase 97 U/L 30-115 (test code = 6768-6) Total Bilirubin (test 0.9 mg/dL 0.1-1.2 code = 1974-2) Sodium (test code = 137 meq/L 528-916 3436-2) Potassium (test code 4.5 meq/L 3.6-5.5 = 2823-3) Chloride (test code = 100 meq/L 98-106 5-0) CO2 (test code = 26 meq/L 20-29 2027-9) BUN (test code = 51 mg/dL 10-26 H 3094-0) Creatinine (test code 1.87 mg/dL 0.50-1.20 H = 2160-0) Glucose (test code = 267 mg/dL 70-110 H 2345-7) Calcium (test code = 9.1 mg/dL 8.5-10.5 92028-1) AST (test code = 18 U/L 5-40 1920-8) ALT (test code = 23 U/L 5-50 1742-6) EGFR (test code = 39 mL/min/1.73 [place] [address]-6) NOT ACCURATE CREATININE CLEARANCE IN PREDICTING GLOMERULAR FILTRATION RATE . ESTIMATED GFR I S NOT APPLICABLE FOR DIALYSIS PATIEN TS. ISSA (test code = ISSA) Sole Molder ID - [id number] r ID - [id number] r ID - [id number] r ID - [id number] r ID - [id number] r ID - [id number] r ID - [id number] r ID - [id number] r ID - [id number] r ID - [id number] r ID - [id number] r ID - [id number] r ID - [id number] r ID - [id number] r ID - [id number] r ID - [id number] r ID - [id number] r ID - [id number] r ID - [id number] Lab Interpretation Abnormal (test code = 69249-5) [facility] [id number] 19:12:00 Test Item Value Reference Range Interpretation Comments Protein, Total (test 6.9 See_Comment [Autom ated code = 2885-2) message] The system which generated this result transmit josé luis reference range : 6.0 - 8.5 gm/dL . The reference range was not u sed to interpret th is result as normal/abnormal . Albumin (test code = 3.3 g/dL 3.5-5.0 L 68081-4) Alkaline Phosphatase 97 U/L 30-115 (test code = 6768-6) Total Bilirubin (test 0.9 mg/dL 0.1-1.2 code = 1975-2) Sodium (test code = 137 meq/L 516-444 1398-2) Potassium (test code 4.5 meq/L 3.6-5.5 = 2823-3) Chloride (test code = 100 meq/L 98-106 2075-0) CO2 (test code = 26 meq/L 20-29 2028-9) BUN (test code = 51 mg/dL 10-26 H 3094-0) Creatinine (test code 1.87 mg/dL 0.50-1.20 H = 2160-0) Glucose (test code = 267 mg/dL 70-110 H 2345-7) Calcium (test code = 9.1 mg/dL 8.5-10.5 26021-1) AST (test code = 18 U/L 5-40 1920-8) ALT (test code = 23 U/L 5-50 1742-6) EGFR (test code = 39 mL/min/1.73 [place] [address]-0) NOT ACCURATE CREATININE CLEARANCE IN PREDICTING GLOMERULAR FILTRATION RATE . ESTIMATED GFR I S NOT APPLICABLE FOR DIALYSIS PATIEN TS. ISSA (test code = ISSA) Sole Molder ID - [id number] r ID - [id number] r ID - [id number] r ID - [id number] r ID - [id number] r ID - [id number] r ID - [id number] r ID - [id number] r ID - [id number] r ID - [id number] r ID - [id number] r ID - [id number] r ID - [id number] r ID - [id number] r ID - [id number] r ID - [id number] r ID - [id number] r ID - [id number] r ID - [id number] Lab Interpretation Abnormal (test code = 44262-1) [facility] [id number] 19:12:00 Test Item Value Reference Range Interpretation Comments Protein, Total (test 6.9 See_Comment [Autom ated code = 2885-2) message] The system which generated this result transmit josé luis reference range : 6.0 - 8.5 gm/dL . The reference range was not u sed to interpret th is result as normal/abnormal . Albumin (test code = 3.3 g/dL 3.5-5.0 L 41251-3) Alkaline Phosphatase 97 U/L 30-115 (test code = 6768-6) Total Bilirubin (test 0.9 mg/dL 0.1-1.2 code = 1975-2) Sodium (test code = 137 meq/L 520-353 0742-2) Potassium (test code 4.5 meq/L 3.6-5.5 = 2823-3) Chloride (test code = 100 meq/L 98-106 2075-0) CO2 (test code = 26 meq/L 20-29 2028-9) BUN (test code = 51 mg/dL 10-26 H 3094-0) Creatinine (test code 1.87 mg/dL 0.50-1.20 H = 2160-0) Glucose (test code = 267 mg/dL 70-110 H 2345-7) Calcium (test code = 9.1 mg/dL 8.5-10.5 54492-3) AST (test code = 18 U/L 5-40 1920-8) ALT (test code = 23 U/L 5-50 1742-6) EGFR (test code = 39 mL/min/1.73 [place] [address]-3) NOT ACCURATE CREATININE CLEARANCE IN PREDICTING GLOMERULAR FILTRATION RATE . ESTIMATED GFR I S NOT APPLICABLE FOR DIALYSIS PATIEN TS. ISSA (test code = ISSA) Sole Molder ID - [id number] r ID - [id number] r ID - [id number] r ID - [id number] r ID - [id number] r ID - [id number] r ID - [id number] r ID - [id number] r ID - [id number] r ID - [id number] r ID - [id number] r ID - [id number] r ID - [id number] r ID - [id number] r ID - [id number] r ID - [id number] r ID - [id number] r ID - [id number] r ID - [id number] Lab Interpretation Abnormal (test code = 78628-5) [facility] [id number] 19:12:00 Test Item Value Reference Range Interpretation [...] U/L 5-50 (test code = 347) EGFR (CECILIO) (test 39 mL/min/1.73 [place] GFR IS code = 1092) sq m NOT ACCURATE CREATININE CLEARANCE IN PREDICTING GLOMERULAR FILTRATION RATE . ESTIMATED GFR I S NOT APPLICABLE FOR DIALYSIS PATIEN TS. Sole Molder ID - [id number] ID - [id number] ID - [id number] ID - [id number] ID - [id number] ID - [id number] ID - [id number] ID - [id number] ID - [id number] ID - [id number] ID - [id number] ID - [id number] ID - [id number] ID - [id number] ID - [id number] ID - [id number] ID - [id number] ID - [id number] ID - [id number] acid, [id number] 19:05:00 Test Item Value Reference Range Interpretation Comments Lactate, Venous (test code 1.18 mmol/L 0.5-2 = 2872) ISSA (test code = ISSA) Sole Molder ID - [id number] ID - [id number] ID - [id number] ID - [id number] Lab Interpretation (test Normal code = 15716-1) [facility], [id number] 19:05:00 Test Item Value Reference Range Interpretation Comments Lactate, Venous (test code 1.18 mmol/L 0.5-2 = 2872) ISSA (test code = ISSA) Sole Molder ID - [id number] ID - [id number] ID - [id number] ID - [id number] Lab Interpretation (test Normal code = 59393-2) [facility], [id number] 19:05:00 Test Item Value Reference Range Interpretation Comments Lactate, Venous (test code 1.18 mmol/L 0.5-2 = 2872) ISSA (test code = ISSA) Sole Molder ID - [id number] ID - [id number] ID - [id number] ID - [id number] Lab Interpretation (test Normal code = 07182-1) [id number] 19:05:00 Test Item Value Reference Range Interpretation Comments Lactate, Venous (test code 1.18 mmol/L 0.5-2 = 2872) ISSA (test code = ISSA) Sole Molder ID - [id number] ID - [id number] ID - [id number] ID - [id number] Lab Interpretation (test Normal code = 56943-4) [facility] [id number] 19:05:00 Test Item Value Reference Range Interpretation Comments Lactate, Venous (test code 1.18 mmol/L 0.50-2.00 = 2872) ISSA (test code = ISSA) Sole Molder ID - [id number] ID - [id number] ID - [id number] ID - [id number] Lab Interpretation (test Normal code = 90192-3) [facility] [id number] 19:05:00 Test Item Value Reference Range Interpretation Comments Lactate, Venous (test code 1.18 mmol/L 0.50-2.00 = 2872) ISSA (test code = ISSA) Sole Molder ID - [id number] ID - [id number] ID - [id number] ID - [id number] Lab Interpretation (test Normal code = 26079-2) [facility], [id number] 19:05:00 Test Item Value Reference Range Interpretation Comments Lactate, Venous (test code 1.18 mmol/L 0.50-2.00 = 2872) ISSA (test code = ISSA) Sole Molder ID - [id number] ID - [id number] ID - [id number] ID - [id number] Lab Interpretation (test Normal code = 46170-6) [facility] [id number] 19:05:00 Test Item Value Reference Range Interpretation Comments LACTATE BLOOD VENOUS (2) (BEAKER) 1.18 mmol/L 0.50-<2.00 (test code = 2872) Sole Molder ID - [id number] ID - [id number] ID - [id number] ID - [id number]/[id number] 19:02:00 Test Item Value Reference Interpretation Comments [...] valves. Lab Interpretation Abnormal (test code = 78867-4) [facility][id number] 19:02:00 Test Item Value Reference Interpretation Comments [...] valves. Lab Interpretation Abnormal (test code = 54341-0) [facility]/[id number] 19:02:00 Test Item Value Reference Interpretation Comments [...] valves. Lab Interpretation Abnormal (test code = 38441-7) [facility]/[id number] 19:02:00 Test Item Value Reference Interpretation Comments [...] valves. Lab Interpretation Abnormal (test code = 08787-4) [facility]/[id number] 19:02:00 Test Item Value Reference Interpretation Comments [...] valves. Lab Interpretation Abnormal (test code = 01305-4) [facility]/[id number] 19:02:00 Test Item Value Reference Interpretation Comments [...] valves. Lab Interpretation Abnormal (test code = 82273-9) [facility]/[id number] 19:02:00 Test Item Value Reference Interpretation Comments [...] valves. Lab Interpretation Abnormal (test code = 12462-8) [facility] HospitalPROTHROMBIN TIME/[id number] 19:02:00 Test Item Value Reference Range Interpretation [...] code = 2801) CARDIAC CATH REPORT - [id number] 13:14:50Ordered by an unspecified provider. [facility] - [id number] 13:14:50 Ordered by an unspecified provider.[facility] - [id number] 13:14:50Ordered by an unspecified provider.[facility] - [id number] 13:14:50Ordered by an unspecified provider.[facility] HospitalKappa / lambda light chains, [id number] 10:53:00 Test Item Value Reference Interpretation Comments Range [place] Lt Chain,Free 129.5 mg/L 3.3-19.4 H (test code = 81626-1) Lambda Lt 99.3 mg/L 5.7-26.3 H Chain,Free (test code = 00522-3) [place]/Lambda,Free 1.3 0.26-1.65 Free [place]ant[place] a/lambda (test code [...] (test code = Performing Lab ISSA) [facility] [address] [place] [address] Awais Cedeno MD, PhD, TOMY Lab Interpretation Abnormal (test code = 71853-4) [facility] lambda light chains, [id number] 10:53:00 Test Item Value Reference Interpretation Comments Range [place] Lt Chain,Free 129.5 mg/L 3.3-19.4 H (test code = 23147-6) Lambda Lt 99.3 mg/L 5.7-26.3 H Chain,Free (test code = 08174-5) [place]/Lambda,Free 1.3 0.26-1.65 Free shantell a/lambda (test code [...] (test code = Performing Lab ISSA) [facility] [address] [place] [address] Awais Cedeno MD, PhD, TOMY Lab Interpretation Abnormal (test code = 30748-0) [facility] lambda light chains, [id number] 10:53:00 Test Item Value Reference Interpretation Comments Range [place] Lt Chain,Free 129.5 mg/L 3.3-19.4 H (test code = 21727-6) Lambda Lt 99.3 mg/L 5.7-26.3 H Chain,Free (test code = 81698-7) [place]/Lambda,Free 1.3 0.26-1.65 Free [place]ant[place] a/lambda (test code [...] = Performing Lab ISSA) [facility] [address] [place] [address] Awais Cedeno MD, PhD, TOMY Lab Interpretation Abnormal (test code = 21315-1) [facility] lambda light chains, [id number] 10:53:00 Test Item Value Reference Interpretation Comments Range [place] Lt Chain,Free 129.5 mg/L 3.3-19.4 H (test code = 29585-6) Lambda Lt 99.3 mg/L 5.7-26.3 H Chain,Free (test code = 18346-6) [place]/Lambda,Free 1.3 0.26-1.65 Free shant[place] a/lambda (test code [...] = Performing Lab ISSA) [facility] [address] [place] [address] Awais Cedeno MD, PhD, TOMY Lab Interpretation Abnormal (test code = 15420-6) [facility] lambda light chains, [id number] 10:53:00 Test Item Value Reference Interpretation Comments Range [place] Lt Chain,Free 129.5 mg/L 3.3-19.4 H (test code = 60854-0) Lambda Lt 99.3 mg/L 5.7-26.3 H Chain,Free (test code = 19315-1) [place]/Lambda,Free 1.3 0.26-1.65 Free shant[place] a/lambda (test code [...] = Performing Lab ISSA) [facility] [address] [place] [address] Awais Cedeno MD, PhD, TOMY Lab Interpretation Abnormal (test code = 09559-4) [facility] lambda light chains, [id number] 10:53:00 Test Item Value Reference Interpretation Comments Range [place] Lt Chain,Free 129.5 mg/L 3.3-19.4 H (test code = 65420-7) Lambda Lt 99.3 mg/L 5.7-26.3 H Chain,Free (test code = 01298-9) [place]/Lambda,Free 1.3 0.26-1.65 Free shantell a/lambda (test code [...] = Performing Lab ISSA) [facility] [address] [place] [address] Awais Cedeno MD, PhD, TOMY Lab Interpretation Abnormal (test code = 57554-6) [facility] lambda light chains, [id number] 10:53:00 Test Item Value Reference Interpretation Comments Range [place] Lt Chain,Free 129.5 mg/L 3.3-19.4 H (test code = 09842-8) Lambda Lt 99.3 mg/L 5.7-26.3 H Chain,Free (test code = 10323-3) [place]/Lambda,Free 1.3 0.26-1.65 Free shantell a/lambda (test code [...] = Performing Lab ISSA) [facility] [address] [place] [address] Awais Cedeno MD, PhD, TOMY Lab Interpretation Abnormal (test code = 25415-3) [facility] HospitalPOCT-GLUCOSE [id number] 08:14:00 Test Item Value Reference Range Interpretation Comments POC-GLUCOSE METER 107 mg/dL 70-110 : Notified RN/MD: TESTED (BEAKER) (test code AT [place] [address] [place] = 1538) [facility] [address]: Sole Molder/Techni cornelia ID = [id number] for Chelsie Garland BASIC METABOLIC [id number] 05:19:00 Test Item Value Reference Range Interpretation [...] S NOT APPLICABLE FOR DIALYSIS PATIEN TS. Sole Molder ID - ANSBERTOGOperator ID - ANSBERTOGOperator ID - ANSBERTOGOperator ID - ANSBERTOGOperatorID - ANSBERTOGOperator ID - ANSBERTOGOperator ID - ANSBERTOGOperator ID - ANSBERTOGOperator ID - ANSBERTOGOperator ID - ANSBERTOGOperator ID - ANSBERTOGOperator ID - ANSBERTOGOperator ID - ANSBERTOG CBC W/PLT COUNT & AUTO [id number] 05:05:00 Test Item Value Reference Range Interpretation [...] PERCENT (BEAKER) (test code = 2801) POCT-GLUCOSE [id number] 22:18:00 Test Item Value Reference Range Interpretation Comments POC-GLUCOSE METER 190 mg/dL 70-110 H : TESTED A T [facility] [address] (BEAKER) (test code [facility] [address] = [address]) [place] [address]: Sole Molder/Techni cornelia ID = [id number] for Corb John etienne POCT-GLUCOSE [id number] 15:30:00 Test Item Value Reference Range Interpretation Comments POC-GLUCOSE METER 197 mg/dL 70-110 H : TESTED A T [facility] [address] (BEAKER) (test code [address], = 1538) [place] [address]: Sole Molder/Techni cornelia ID = [id number] for Buff ord, Jesi Protein electrophoresis, [id number] 14:18:00 Test Item Value Reference Range Interpretation Comments Albumin Fraction 2.5 See_Comment L [Automated (test code = 405) message] T [email or web address] system which generated this result transmitted reference range : 3.5 - 5.5 gm/dL . The reference range was not used to interpr et this result as normal/abnormal . Alpha 1 Fraction 0.3 See_Comment [Automated (test code = 389) message] T [employer] system which generated this result transmitted reference range : 0.2 - 0.4 gm/dL . The reference range was not used to interpr et this result as normal/abnormal . Alpha 2 Fraction 0.8 See_Comment [Automated (test code = 390) message] T [email or web address] system which generated this result transmitted reference [...] normal/abnormal . ISSA (test code = ISSA) Sole Molder ID - PIAYA L Lab Interpretation Abnormal (test code = 59984-3) [facility] HospitalProtein electrophoresis, [id number] 14:18:00 Test Item Value Reference Range Interpretation [...] 5.4 See_Comment L [Autom ated code = 1760) message] The system which generated this result transmitted reference range : 6.0 - 8.3 gm/dL . The reference range was not used to interpr et this result as normal/abnormal . ISSA (test code = ISSA) Sole Molder ID - PIAYA L Lab Interpretation Abnormal (test code = 72854-8) [facility] HospitalProtein electrophoresis, [id number] 14:18:00 Test Item Value Reference Range Interpretation Comments Albumin Fraction 2.5 See_Comment L [Automated (test code = 405) message] [employer] system which generated this result transmitted reference range : 3.5 - 5.5 gm/dL . The reference range was not used to interpr et this result as normal/abnormal . Alpha 1 Fraction 0.3 See_Comment [Automated (test code = 389) message] [employer] system which generated this result transmitted reference range : 0.2 - 0.4 gm/dL . The reference range was not used to interpr et this result as normal/abnormal . Alpha 2 Fraction 0.8 See_Comment [Automated (test code = 390) message] [employer] system which generated this result transmitted reference [...] 5.4 See_Comment L [Autom ated code = 5603) message] The system which generated this result transmitted reference range : 6.0 - 8.3 gm/dL . The reference range was not used to interpr et this result as normal/abnormal . ISSA (test code = ISSA) Sole Molder ID - PIAYA L Lab Interpretation Abnormal (test code = 53863-8) [facility] HospitalProtein electrophoresis, [id number] 14:18:00 Test Item Value Reference Range Interpretation Comments Albumin Fraction 2.5 See_Comment L [Automated (test code = 405) message] [employer] system which generated this result transmitted reference range : 3.5 - 5.5 gm/dL . The reference range was not used to interpr et this result as normal/abnormal . Alpha 1 Fraction 0.3 See_Comment [Automated (test code = 389) message] [employer] system which generated this result transmitted reference range : 0.2 - 0.4 gm/dL . The reference range was not used to interpr et this result as normal/abnormal . Alpha 2 Fraction 0.8 See_Comment [Automated (test code = 390) message] [employer] system which generated this result transmitted reference [...] inflammation. No monoclonal bands detected. Pathologist: (test Angeal code = 2616) MD Carley (electronic signature) Protein, Total (test 5.4 See_Comment L [Autom ated code = 6830) message] The system which generated this result transmitted reference range : 6.0 - 8.3 gm/dL . The reference range was not used to interpr et this result as normal/abnormal . ISSA (test code = ISSA) Sole Molder ID - PIAYA L Lab Interpretation Abnormal (test code = 36800-4) [facility]Protein [facility], [id number] 14:18:00 Test Item Value Reference Range Interpretation Comments Albumin Fraction 2.5 See_Comment L [Automated (test code = 405) message] [employer] system which generated this result transmitted reference range : 3.5 - 5.5 gm/dL . The reference range was not used to interpr et this result as normal/abnormal . Alpha 1 Fraction 0.3 See_Comment [Automated (test code = 389) message] [employer] system which generated this result transmitted reference range : 0.2 - 0.4 gm/dL . The reference range was not used to interpr et this result as normal/abnormal . Alpha 2 Fraction 0.8 See_Comment [Automated (test code = 390) message] [employer] system which generated this result transmitted reference [...] 5.4 See_Comment L [Autom ated code = 4380) message] The system which generated this result transmitted reference range : 6.0 - 8.3 gm/dL . The reference range was not used to interpr et this result as normal/abnormal . ISSA (test code = ISSA) Sole Molder ID - PIAYA L Lab Interpretation Abnormal (test code = 46144-0) [facility], [id number] 14:18:00 Test Item Value Reference Range Interpretation Comments Albumin Fraction 2.5 See_Comment L [Automated (test code = 405) message] T [email or web address] system which generated this result transmitted reference range : 3.5 - 5.5 gm/dL . The reference range was not used to interpr et this result as normal/abnormal . Alpha 1 Fraction 0.3 See_Comment [Automated (test code = 389) message] T [email or web address] system which generated this result transmitted reference range : 0.2 - 0.4 gm/dL . The reference range was not used to interpr et this result as normal/abnormal . Alpha 2 Fraction 0.8 See_Comment [Automated (test code = 390) message] T [email or web address] system which generated this result transmitted reference [...] normal/abnormal . ISSA (test code = ISSA) [employer] ID - PIAYA L Lab Interpretation Abnormal (test code = 24001-0) [facility] [id number] 14:18:00 Test Item Value Reference Range Interpretation Comments Albumin Fraction 2.5 See_Comment L [Automated (test code = 405) message] T [employer] system which generated this result transmitted reference range : 3.5 - 5.5 gm/dL . The reference range was not used to interpr et this result as normal/abnormal . Alpha 1 Fraction 0.3 See_Comment [Automated (test code = 389) message] T he system which generated this result transmitted reference range : 0.2 - 0.4 gm/dL . The reference range was not used to interpr et this result as normal/abnormal . Alpha 2 Fraction 0.8 See_Comment [Automated (test code = 390) message] T [employer] system which generated this result transmitted reference [...] 5.4 See_Comment L [Autom ated code = 0240) message] The system which generated this result transmitted reference range : 6.0 - 8.3 gm/dL . The reference range was not used to interpr et this result as normal/abnormal . ISSA (test code = ISSA) Sole Molder ID - PIAYA L Lab Interpretation Abnormal (test code = 39064-6) [facility], [id number] 14:18:00 Test Item Value Reference Range Interpretation [...] of acute inflammation. No monoclonal bands detected. [id number] Angela Howe MD (BEAKER) (test code = (electronic signature) 2616) PROTEIN TOTAL SERUM, 5.4 gm/dL 6.0-8.3 L SPEP (BEAKER) (test code = 2660) Sole Molder ID - PAVEL LANAEROBIC [id number] 14:06:00 Test Item Value Reference Range Interpretation Comments CULTURE (BEAKER) (test No anaerobes isolated code = 1095) ANAEROBIC [id number] 14:05:00 Test Item Value Reference Range Interpretation Comments CULTURE (BEAKER) (test No anaerobes isolated code = 1095) POCT-GLUCOSE [id number] 11:50:00 Test Item Value Reference Range Interpretation Comments POC-GLUCOSE METER 151 mg/dL 70-110 H : TESTED A T [facility] [address] (BEAKER) (test code [address], = 1538) [facility] 77 478: Sole Molder/Techni cornelia ID = [id number] for Buff justyn, Jesi ANG, NON-TUNNELED CATH/PICC >5 Y.O. 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 Okay to place [facility] BANG : 1975 Sex: MFINAL REPORT Procedure: PICC line insertion. History: Need for long-term IV access. Supervisor Rough End: Charlie Grigsby MD. Cardboard Inserter: None Modality: Sonography and fluoroscopy. DOSE REDUCTION: [...] and fluoroscopic guided placement of a 5 Marshallese dual lumen PICC line via a right mid upper arm brachial vein approach with the catheter tip in distal SVC/RA, a satisfactory position for use. Thank you for the opportunity to assist in the care of your patient. Signed: Charlie Grigsby MDReport Verified Date/Time: 04/05/2020 11:32:55 Reading Location: [facility] Radiology Reading Room IR PICC line placement older than 5 [id number] 11:32:00 Interface, External Ris In - 04/05/2020 11:35 AM CSTFINAL REPORT Procedure: PICC line insertion. History: Need for long-term IV access. Supervisor Rough End: Charlie Grigsby MD. Cardboard Inserter: None Modality: Sonography and fluoroscopy. DOSE REDUCTION: [...] and fluoroscopic guided placement of a 5 Marshallese dual lumen PICC line via a right mid upper arm brachial vein approach with the catheter tip in distal SVC/RA, a satisfactory position for use. Thank you for the opportunity to assist in the care of your patient. Signed: Charlie Grigsby MDReport Verified Date/Time: 04/05/2020 11:32:55 Reading Location: [facility] than 5 [id number] 11:32:00 Interface, External Ris In - 04/05/2020 11:35 AM CSTFINAL REPORT Procedure: PICC line insertion. History: Need for long-term IV access. Supervisor Rough End: Charlie Grigsby MD. Cardboard Inserter: None Modality: Sonography and fluoroscopy. DOSE REDUCTION: [...] and fluoroscopic guided placement of a 5 Marshallese dual lumen PICC line via a right mid upper arm brachial vein approach with the catheter tip in distal SVC/RA, a satisfactory position for use. Thank you for the opportunity to assist in the care of your patient. Signed: Charlie Grigsby MDReport Verified Date/Time: 04/05/2020 11:32:55 Reading Location: [facility] Radiology [facility] older than 5 [id number] 11:32:00 Interface, External Ris In - 04/05/2020 11:35 AM CSTFINAL REPORT Procedure: PICC line insertion. History: Need for long-term IV access. Supervisor Rough End: Charlie Grigsby MD. Cardboard Inserter: None Modality: Sonography and fluoroscopy. DOSE REDUCTION: [...] and fluoroscopic guided placement of a 5 Marshallese dual lumen PICC line via a right mid upper arm brachial vein approach with the catheter tip in distal SVC/RA, a satisfactory position for use. Thank you for the opportunity to assist in the care of your patient. Signed: Charlie Grigsby MDReport Verified Date/Time: 04/05/2020 11:32:55 Reading Location: [facility] Radiology [facility] older than 5 [id number] 11:32:00 Interface, External Ris In - 04/05/2020 11:35 AM CSTFINAL REPORT Procedure: PICC line insertion. History: Need for long-term IV access. Supervisor Rough End: Charlie Grigsby MD. Cardboard Inserter: None Modality: Sonography and fluoroscopy. DOSE REDUCTION: [...] and fluoroscopic guided placement of a 5 Marshallese dual lumen PICC line via a right mid upper arm brachial vein approach with the catheter tip in distal SVC/RA, a satisfactory position for use. Thank you for the opportunity to assist in the care of your patient. Signed: Charlie Grigsby Verified Date/Time: 04/05/2020 11:32:55 Reading Location: [facility] Radiology Reading [facility] [id number] 09:34:00 Test Item Value Reference Range Interpretation Comments POC-GLUCOSE METER 72 mg/dL 70-110 : [facility] (test code = [address], 15[address]) [place] [address]: Sole Molder/Techni cornelia ID = [id number] for Chencho h Rina POCT-GLUCOSE [id number] 08:11:00 Test Item Value Reference Range Interpretation Comments POC-GLUCOSE METER 83 mg/dL 70-110 : TESTED A T [facility] [address] (BEAKER) (test code = [address], 1538) [place] [address]: Sole Molder/Techni cornelia ID = [id number] for Buff ord, Jesi BASIC METABOLIC [id number] 06:57:00 Test Item Value Reference Range Interpretation [...] S NOT APPLICABLE FOR DIALYSIS PATIEN TS. Sole Molder ID - LITOOperator ID - LITOOperator ID - LITOOperator ID - LITOOperator ID - LITOOperator ID - LITOOperator ID - LITOOperator ID - LITOOperator ID - LITOOperator ID - LITOOperator ID - LITOOperator ID - LITOOperator ID - LITOCBC W/PLT COUNT & AUTO [id number] 05:55:00 Test Item Value Reference Range Interpretation [...] = No growth in 5 days 6463-4) [facility] ([facility]ipuncture) 2020-04-05 01:01:00 Test Item Value Reference Range Interpretation Comments Result (test code = No growth in 5 days 6463-4) [facility] ([facility]ipuncture) 2020-04-05 01:01:00 Test Item Value Reference Range Interpretation Comments Result (test code = No growth in 5 days 6463-4) [facility] Culture - Routine (Left Venipuncture) 2020-04-05 01:01:00 Test Item Value Reference Range Interpretation Comments Result (test code = No growth in 5 days 6463-4) [facility] Culture - Routine (Left Venipuncture) 2020-04-05 01:01:00 Test Item Value Reference Range Interpretation Comments Result (test code = No growth in 5 days 6463-4) [facility] Culture - Routine (Left Venipuncture) 2020-04-05 01:01:00 Test Item Value Reference Range Interpretation Comments Result (test code = No growth in 5 days 6463-4) [facility] Culture - Routine (Left Venipuncture) 2020-04-05 01:01:00 Test Item Value Reference Range Interpretation Comments Result (test code = No growth in 5 days 6463-4) [facility] [id number] 01:01:00 Test Item Value Reference Range Interpretation Comments CULTURE (BEAKER) (test No growth in 5 days code = 1095) BLOOD [id number] 01:01:00 Test Item Value Reference Range Interpretation Comments CULTURE (BEAKER) (test No growth in 5 days code = 1095) Vancomycin level, [id number] 00:11:00 Test Item Value Reference Range Interpretation Comments Vancomycin Tr (test code = 17.1 ug/mL 10-20 4092-3) ISSA (test code = ISSA) Sole Molder ID - ARCHIE Lab Interpretation (test Normal code = 74514-9) [facility], [id number] 00:11:00 Test Item Value Reference Range Interpretation Comments Vancomycin Tr (test code = 17.1 ug/mL 10-20 4092-3) ISSA (test code = ISSA) Sole Molder ID - ARCHIE Lab Interpretation (test Normal code = 43609-8) [facility], [id number] 00:11:00 Test Item Value Reference Range Interpretation Comments Vancomycin Tr (test code = 17.1 ug/mL 10-20 4092-3) ISSA (test code = ISSA) Sole Molder ID - ARCHIE Lab Interpretation (test Normal code = 27238-2) [facility], [id number] 00:11:00 Test Item Value Reference Range Interpretation Comments Vancomycin Tr (test code = 17.1 ug/mL 10-20 4092-3) ISSA (test code = ISSA) Sole Molder ID - ARCHIE Lab Interpretation (test Normal code = 87470-8) [facility] [id number] 00:11:00 Test Item Value Reference Range Interpretation Comments Vancomycin Tr (test code = 17.1 ug/mL 10.0-20.0 4092-3) ISSA (test code = ISSA) Sole Molder ID - ARCHIE Lab Interpretation (test Normal code = 33999-6) [facility], [id number] 00:11:00 Test Item Value Reference Range Interpretation Comments Vancomycin Tr (test code = 17.1 ug/mL 10.0-20.0 4092-3) ISSA (test code = ISSA) Sole Molder ID - ARCHIE Lab Interpretation (test Normal code = 61049-9) [facility], [id number] 00:11:00 Test Item Value Reference Range Interpretation Comments Vancomycin Tr (test code = 17.1 ug/mL 10.0-20.0 4092-3) ISSA (test code = ISSA) Sole Molder ID - ARCHIE Lab Interpretation (test Normal code = 45451-1) [facility], [id number] 00:11:00 Test Item Value Reference Range Interpretation Comments VANCOMYCIN TROUGH (BEAKER) (test 17.1 ug/mL 10.0-20.0 code = 522) Sole Molder ID - LITOPOCT-GLUCOSE [id number] 21:26:00 Test Item Value Reference Range Interpretation Comments POC-GLUCOSE METER 234 mg/dL 70-110 H : TESTED A T [facility] [address] (BEAKER) (test code [address], = 1538) [place] [address]: Sole Molder/Techni cornelia ID = [id number] for Tiff Roach POCT-GLUCOSE [id number] 15:54:00 Test Item Value Reference Range Interpretation Comments POC-GLUCOSE METER 200 mg/dL 70-110 H : TESTED A T [facility] [address] (BEAKER) (test code [address], = 1538) [facility] 77 478: Sole Molder/Techni cornelia ID = [id number] for Tiff Roach POCT-GLUCOSE [id number] 11:48:00 Test Item Value Reference Range Interpretation Comments POC-GLUCOSE METER 197 mg/dL 70-110 H : TESTED A T [facility] [address] (BEAKER) (test code [address], = 1538) [place] [address]: Sole Molder/Techni cornelia ID = [id number] for Tiff Roach Hepatitis panel, [id number] 10:58:00 Test Item Value Reference Range Interpretation Comments Hep A IgM (test code = Nonreactive Nonreactive 74585-4) Hep B C IgM (test code = Nonreactive Nonreactive 43324-8) Hepatitis C Ab (test Nonreactive Nonreactive code = 97258-6) HBsAg Screen (test code Nonreactive Nonreactive = 5195-3) ISSA (test code = ISSA) Sole Molder ID - BARRERA M Lab Interpretation (test Normal code = 33720-2) [facility] panel, [id number] 10:58:00 Test Item Value Reference Range Interpretation Comments Hep A IgM (test code = Nonreactive Nonreactive 18456-9) Hep B C IgM (test code = Nonreactive Nonreactive 07485-4) Hepatitis C Ab (test Nonreactive Nonreactive code = 82223-4) HBsAg Screen (test code Nonreactive Nonreactive = 5195-3) ISSA (test code = ISSA) Sole Molder ID - BARRERA M Lab Interpretation (test Normal code = 77933-1) [facility], [id number] 10:58:00 Test Item Value Reference Range Interpretation Comments Hep A IgM (test code = Nonreactive Nonreactive 99585-2) Hep B C IgM (test code = Nonreactive Nonreactive 87728-0) Hepatitis C Ab (test Nonreactive Nonreactive code = 80245-3) HBsAg Screen (test code Nonreactive Nonreactive = 5195-3) ISSA (test code = ISSA) Sole Molder ID - BARRERA M Lab Interpretation (test Normal code = 16614-8) [facility], [id number] 10:58:00 Test Item Value Reference Range Interpretation Comments Hep A IgM (test code = Nonreactive Nonreactive 62351-1) Hep B C IgM (test code = Nonreactive Nonreactive 36943-6) Hepatitis C Ab (test Nonreactive Nonreactive code = 40406-2) HBsAg Screen (test code Nonreactive Nonreactive = 5195-3) ISSA (test code = ISSA) Sole Molder ID - BARRERA M Lab Interpretation (test Normal code = 48234-0) [facility], [id number] 10:58:00 Test Item Value Reference Range Interpretation Comments Hep A IgM (test code = Nonreactive Nonreactive 99336-2) Hep B C IgM (test code = Nonreactive Nonreactive 41099-3) Hepatitis C Ab (test Nonreactive Nonreactive code = 76688-1) HBsAg Screen (test code Nonreactive Nonreactive = 5195-3) ISSA (test code = ISSA) Sole Molder ID - BARRERA M Lab Interpretation (test Normal code = 79074-6) [facility], [id number] 10:58:00 Test Item Value Reference Range Interpretation Comments Hep A IgM (test code = Nonreactive Nonreactive 93182-1) Hep B C IgM (test code = Nonreactive Nonreactive 72998-7) Hepatitis C Ab (test Nonreactive Nonreactive code = 47865-5) HBsAg Screen (test code Nonreactive Nonreactive = 5195-3) ISSA (test code = ISAS) Sole Molder ID - BARRERA M Lab Interpretation (test Normal code = 76092-6) [facility], [id number] 10:58:00 Test Item Value Reference Range Interpretation Comments Hep A IgM (test code = Nonreactive Nonreactive 53388-7) Hep B C IgM (test code = Nonreactive Nonreactive 47385-1) Hepatitis C Ab (test Nonreactive Nonreactive code = 86021-3) HBsAg Screen (test code Nonreactive Nonreactive = 5195-3) ISSA (test code = ISSA) Sole Molder ID - BARRERA M Lab Interpretation (test Normal code = 72909-9) [facility] PANEL, [id number] 10:58:00 Test Item Value Reference Range Interpretation Comments HEPATITIS A IGM ANTIBODY (BEAKER) Nonreactive Nonreactive (test code = 498) HEPATITIS B CORE IGM ANTIBODY Nonreactive Nonreactive (BEAKER) (test code = 645) HEPATITIS C ANTIBODY (BEAKER) Nonreactive Nonreactive (test code = 367) HEPATITIS B SURFACE ANTIGEN (2) Nonreactive Nonreactive (BEAKER) (test code = 2585) Sole Molder ID - BARRERA MUREA NITROGEN, RANDOM [id number] 10:45:00 Test Item Value Reference Range Interpretation Comments UREA NITROGEN URINE (BEAKER) (test 528 mg/dL code = 538) Reference Range: No NormalsOperator ID - BARRERA MSURGICALLY OBTAINED CULTURE + GRAM [id number] 10:30:00 Test Item Value Reference Range Interpretation Comments CULTURE (BEAKER) A <1+ Coagula se negative (test code = Staphylococcus 1095) GRAM STAIN No WBCs RESULT (BEAKER) (test code = 1123) GRAM STAIN 2+ gram positive RESULT (BEAKER) cocci in pairs (test code = and clusters 837510) SURGICALLY OBTAINED CULTURE + GRAM [id number] 09:52:00 Test Item Value Reference Range Interpretation Comments CULTURE (BEAKER) A <1+ Viridan s (test code = Streptococcus 1095) GRAM STAIN No WBCs RESULT (BEAKER) (test code = 1123) GRAM STAIN No organisms seen RESULT (BEAKER) (test code = 795681) TISSUE [id number] 09:51:00Surgical Pathology Report Case: [id number] Authorizing Provider: Laura Muñiz DPM Collected: 04/01/2020 01:12 PM Ordering Location: [facility] Med Surg 5th Floor Received: 04/02/2020 08:38 AM Pathologist: Hilda Mack MD Specimen: Fo ot, Left, Bone biopsy 1st metatarsal, left BONE, FIRST LEFT METATARSAL, BIOPSY: - BONE WITH FOCAL REPARATIVE/REGENERATIVE CHANGES - NO ACUTE OSTEOMYELITIS ISSEEN Signing Pathologist Direct Phone Line: [phone] signed by Hilda Mack MD on 04/04/2020 at 9:51 [id number]; [id number] infectionBone biopsy first metatarsal, leftThespecimen is received in fixative and labeled with the patient's name, medical record number and designated as "foot left" and consists of a bone core biopsy measuring 1.5 cm in length and 0.2 cm in diameter. The specimen is entirely submitted into A1 and into decal solution. MG/pl Performed [facility], Department of Pathology, [address] [place] [address], [facility], Department of Pathology, [address] [place] [address], [facility], [facility] of [facility], [address] [place] [address], YLBR-GLUCOSE METER 2020-04-04 08:22:00 Test Item Value Reference Range Interpretation Comments POC-GLUCOSE METER 167 mg/dL 70-110 H : TESTED A T [facility] [address] (BEAKER) (test code [facility] [address], = 1538) [place] [address]: Sole Molder/Techni cornelia ID = [id number] for Tiff Roach PTH, [id number] 07:24:00 Test Item Value Reference Range Interpretation Comments PARATHYROID HORMONE INTACT 365.7 pg/mL 15.0-90.0 H (BEAKER) (test code = 577) Sole Molder ID - [id number] METABOLIC [id number] 06:33:00 Test Item Value Reference Range Interpretation [...] S NOT APPLICABLE FOR DIALYSIS PATIEN TS. Sole Molder ID - [id number] ID - [id number] ID - [id number] ID - CFGA24Nfakateb ID - [id number] ID - YUKV07Xgmmbxvp ID - [id number] ID - PAYJ28Jjsltpij ID - EBQH20Ksozaqyi ID - MZFX10Ffdxxidg ID - YVKF37Cjwzwbfg ID - COHL70Oimjncal ID - [id number] W/PLT COUNT & AUTO [id number] 06:01:00 Test Item Value Reference Range Interpretation [...] PERCENT (BEAKER) (test code = 2801) POCT-GLUCOSE [id number] 21:43:00 Test Item Value Reference Range Interpretation Comments POC-GLUCOSE METER 242 mg/dL 70-110 H : TESTED A T [facility] [address] (BEAKER) (test code [facility] [address], = 1538) [facility] 77 [address]: Sole Molder/Techni cornelia ID = [id number] for Heidy Barrow HIV-1 Antigen with HIV-1/2 [id number] 18:37:00 Test Item Value Reference Range Interpretation Comments HIV-1 Antigen with HIV Nonreactive Nonreactive 1&2 Antibody (test code = 47404-3) ISSA (test code = ISSA) Sole Molder ID - [id number] Lab Interpretation (test Normal code = 13693-5) [facility] Antigen with HIV-1/2 [id number] 18:37:00 Test Item Value Reference Range Interpretation Comments HIV-1 Antigen with HIV Nonreactive Nonreactive 1&2 Antibody (test code = 53621-8) ISSA (test code = ISSA) Sole Molder ID - [id number] Lab Interpretation (test Normal code = 68658-9) [facility] Antigen with HIV-1/2 [id number] 18:37:00 Test Item Value Reference Range Interpretation Comments HIV-1 Antigen with HIV Nonreactive Nonreactive 1&2 Antibody (test code = 11757-9) ISSA (test code = ISSA) Sole Molder ID - [id number] Lab Interpretation (test Normal code = 14304-5) [facility] Antigen with HIV-1/2 [id number] 18:37:00 Test Item Value Reference Range Interpretation Comments HIV-1 Antigen with HIV Nonreactive Nonreactive 1&2 Antibody (test code = 15690-1) ISSA (test code = ISSA) Sole Molder ID - [id number] Lab Interpretation (test Normal code = 68212-8) [facility] Antigen with HIV-1/2 [id number] 18:37:00 Test Item Value Reference Range Interpretation Comments HIV-1 Antigen with HIV Nonreactive Nonreactive 1&2 Antibody (test code = 38636-8) ISSA (test code = ISSA) Sole Molder ID - [id number] Lab Interpretation (test Normal code = 49343-0) [facility] Antigen with HIV-1/2 [id number] 18:37:00 Test Item Value Reference Range Interpretation Comments HIV-1 Antigen with HIV Nonreactive Nonreactive 1&2 Antibody (test code = 91256-7) ISSA (test code = ISSA) Sole Molder ID - [id number] Lab Interpretation (test Normal code = 30075-1) [facility] Antigen with HIV-1/2 [id number] 18:37:00 Test Item Value Reference Range Interpretation Comments HIV-1 Antigen with HIV Nonreactive Nonreactive 1&2 Antibody (test code = 12163-1) ISSA (test code = ISSA) Sole Molder ID - [id number] Lab Interpretation (test Normal code = 58421-9) [facility] ANTIGEN WITH HIV-1/2 [id number] 18:37:00 Test Item Value Reference Range Interpretation Comments HIV-1 ANTIGEN WITH HIV 1\\T\\2 Nonreactive Nonreactive ANTIBODY (2) (BEAKER) (test code = 2586) Sole Molder ID - [id number] METABOLIC [id number] 17:38:00 Test Item Value Reference Range Interpretation [...] S NOT APPLICABLE FOR DIALYSIS PATIEN TS. Sole Molder ID - [id number] ID - [id number] ID - [id number] ID - [id number] ID - [id number] ID - [id number] ID - [id number] ID - [id number] ID - [id number] ID - [id number] ID - [id number] ID - [id number] ID - [id number] W/PLT COUNT & AUTO [id number] 17:24:00 Test Item Value Reference Range Interpretation [...] PERCENT (BEAKER) (test code = 2801) POCT-GLUCOSE [id number] 16:16:00 Test Item Value Reference Range Interpretation Comments POC-GLUCOSE METER 228 mg/dL 70-110 H : TESTED A T [facility] [address] (BEAKER) (test code [facility] [address], = 1538) [facility] 77 478: Sole Molder/Techni cornelia ID = [id number] for Tiff Roach WOUND CULTURE + GRAM [id number] 14:46:00 Test Item Value Reference Interpretation Comments [...] 4+ Mixed geri (BEAKER) (test code = 307928) 3+ Skin floraPOCT-GLUCOSE [id number] 11:46:00 Test Item Value Reference Range Interpretation Comments POC-GLUCOSE METER 251 mg/dL 70-110 H : TESTED A T [facility] [address] (BEAKER) (test code [facility] [address], = 1538) [facility] 77 [address]: Sole Molder/Techni cornelia ID = [id number] for Tim rodriguezTiff PROTEIN, RANDOM [id number] 11:18:00 Test Item Value Reference Range Interpretation Comments PROTEIN, URINE (BEAKER) (test code 214 mg/dL 0-14 H = 1569) Sole Molder ID - [id number] ID - [id number], RANDOM [id number] 11:02:00 Test Item Value Reference Range Interpretation Comments CREATININE URINE (BEAKER) (test 129.1 mg/dL code = 375) Reference Range: No NormalsOperator ID - [id number], RANDOM [id number] 11:00:00 Test Item Value Reference Range Interpretation Comments SODIUM URINE (BEAKER) (test code = 20 meq/L 243) Reference Range: No NormalsOperator ID - [id number] 11:00:00 Test Item Value Reference Range Interpretation Comments PHOSPHORUS (BEAKER) (test code = 5.0 mg/dL 2.5-4.5 H 604) Sole Molder ID - [id number] w/Brkgcmnxvdw0424-40-94 10:57:00 Test Item Value Reference Range Interpretation Comments Color, UA (test code Yellow = 5778-6) Clarity, UA (test Slightly Cloudy code = 5767-9) Specific [place], UA 1.025 1.001-1.035 (test code = 5811-5) pH, UA (test code = 5.0 5.0-8.0 5803-2) Protein, UA (test 100 mg/dL Negative A code = 52101-5) Glucose, UA (test Negative Negative code = 365) Ketones, UA (test Negative Negative code = 2514-8) Bilirubin, UA (test Negative Negative code = 02425-6) Blood, UA (test code Small Negative A = 02793-2) Nitrite, UA (test Negative Negative code = 5802-4) Leukocytes, UA (test Negative Negative code = 5799-2) Urobilinogen, UA 0.2 mg/dL 0.2-1 (test code = 17987-1) Bacteria, UA (test Occasional code = 64998-2) RBC, UA (test code = 5-10 See_Comment [Autom ated 799-7) message] The system which generated this result transmitted reference range : /HPF. The reference range was not used to interpret this result as normal/abnormal . WBC, UA (test code = <5 See_Comment [Autom ated 81362-0) message] The system which generated this result transmitted reference range : /HPF. The reference range was not used to interpret this result as normal/abnormal . SQUAMOUS EPITHELIAL <5 See_Comment [Automa josé luis (test code = 46990-2) messag e] The system which generated this result transmitted reference range : /HPF. The reference range was not used to interpret this result as normal/abnormal . Specimen Source (test code = 2795) Lab Interpretation Abnormal (test code = 85954-9) [facility][id number] 10:57:00 Test Item Value Reference Range Interpretation Comments Color, UA (test code Yellow = 5778-6) Clarity, UA (test Slightly Cloudy code = 5767-9) Specific [place], UA 1.025 1.001-1.035 (test code = 5811-5) pH, UA (test code = 5.0 5.0-8.0 5803-2) Protein, UA (test 100 mg/dL Negative A code = 91294-2) Glucose, UA (test Negative Negative code = 365) Ketones, UA (test Negative Negative code = 2514-8) Bilirubin, UA (test Negative Negative code = 37232-9) Blood, UA (test code Small Negative A = 22454-0) Nitrite, UA (test Negative Negative code = 5802-4) Leukocytes, UA (test Negative Negative code = 5799-2) Urobilinogen, UA 0.2 mg/dL 0.2-1 (test code = 45167-8) Bacteria, UA (test Occasional code = 99454-7) RBC, UA (test code = 5-10 See_Comment [Autom ated 799-7) message] The system which generated this result transmitted reference range : /HPF. The reference range was not used to interpret this result as normal/abnormal . WBC, UA (test code = <5 See_Comment [Autom ated 84385-2) message] The system which generated this result transmitted reference range : /HPF. The reference range was not used to interpret this result as normal/abnormal . SQUAMOUS EPITHELIAL <5 See_Comment [Automa josé luis (test code = 35492-3) messag e] The system which generated this result transmitted reference range : /HPF. The reference range was not used to interpret this result as normal/abnormal . Specimen Source (test code = 2795) Lab Interpretation Abnormal (test code = 16393-9) [facility]/[id number] 10:57:00 Test Item Value Reference Range Interpretation Comments Color, UA (test code Yellow = 5778-6) Clarity, UA (test Slightly Cloudy code = 5767-9) Specific [place], UA 1.025 1.001-1.035 (test code = 5811-5) pH, UA (test code = 5.0 5.0-8.0 5803-2) Protein, UA (test 100 mg/dL Negative A code = 85475-2) Glucose, UA (test Negative Negative code = 365) Ketones, UA (test Negative Negative code = 2514-8) Bilirubin, UA (test Negative Negative code = 25022-4) Blood, UA (test code Small Negative A = 13224-6) Nitrite, UA (test Negative Negative code = 5802-4) Leukocytes, UA (test Negative Negative code = 5799-2) Urobilinogen, UA 0.2 mg/dL 0.2-1 (test code = 23707-1) Bacteria, UA (test Occasional code = 00717-4) RBC, UA (test code = 5-10 See_Comment [Autom ated 799-7) message] The system which generated this result transmitted reference range : /HPF. The reference range was not used to interpret this result as normal/abnormal . WBC, UA (test code = <5 See_Comment [Autom ated 01676-9) message] The system which generated this result transmitted reference range : /HPF. The reference range was not used to interpret this result as normal/abnormal . SQUAMOUS EPITHELIAL <5 See_Comment [Automa josé luis (test code = 65536-5) messag e] The system which generated this result transmitted reference range : /HPF. The reference range was not used to interpret this result as normal/abnormal . Specimen Source (test code = 2795) Lab Interpretation Abnormal (test code = 99891-0) [facility]/[id number] 10:57:00 Test Item Value Reference Range Interpretation Comments Color, UA (test code Yellow = 5778-6) Clarity, UA (test Slightly Cloudy code = 5767-9) Specific [place], UA 1.025 1.001-1.035 (test code = 5811-5) pH, UA (test code = 5.0 5.0-8.0 5803-2) Protein, UA (test 100 mg/dL Negative A code = 76947-7) Glucose, UA (test Negative Negative code = 365) Ketones, UA (test Negative Negative code = 2514-8) Bilirubin, UA (test Negative Negative code = 27672-7) Blood, UA (test code Small Negative A = 51095-0) Nitrite, UA (test Negative Negative code = 5802-4) Leukocytes, UA (test Negative Negative code = 5799-2) Urobilinogen, UA 0.2 mg/dL 0.2-1 (test code = 01130-1) Bacteria, UA (test Occasional code = 77916-1) RBC, UA (test code = 5-10 See_Comment [Autom ated 799-7) message] The system which generated this result transmitted reference range : /HPF. The reference range was not used to interpret this result as normal/abnormal . WBC, UA (test code = <5 See_Comment [Autom ated 88523-4) message] The system which generated this result transmitted reference range : /HPF. The reference range was not used to interpret this result as normal/abnormal . SQUAMOUS EPITHELIAL <5 See_Comment [Automa josé luis (test code = 04877-8) messag e] The system which generated this result transmitted reference range : /HPF. The reference range was not used to interpret this result as normal/abnormal . Specimen Source (test code = 2795) Lab Interpretation Abnormal (test code = 00392-3) [facility]/[id number] 10:57:00 Test Item Value Reference Range Interpretation Comments Color, UA (test code Yellow = 5778-6) Clarity, UA (test Slightly Cloudy code = 5767-9) Specific [place], UA 1.025 1.001-1.035 (test code = 5811-5) pH, UA (test code = 5.0 5.0-8.0 5803-2) Protein, UA (test 100 mg/dL Negative A code = 94245-8) Glucose, UA (test Negative Negative code = 365) Ketones, UA (test Negative Negative code = 2514-8) Bilirubin, UA (test Negative Negative code = 90251-7) Blood, UA (test code Small Negative A = 92190-0) Nitrite, UA (test Negative Negative code = 5802-4) Leukocytes, UA (test Negative Negative code = 5799-2) Urobilinogen, UA 0.2 mg/dL 0.2-1.0 (test code = 89795-8) Bacteria, UA (test Occasional code = 15318-7) RBC, UA (test code = 5-10 See_Comment [Autom ated 799-7) message] The system which generated this result transmitted reference range : /HPF. The reference range was not used to interpret this result as normal/abnormal . WBC, UA (test code = <5 See_Comment [Autom ated 02476-7) message] The system which generated this result transmitted reference range : /HPF. The reference range was not used to interpret this result as normal/abnormal . SQUAMOUS EPITHELIAL <5 See_Comment [Automa josé luis (test code = 70646-5) messag e] The system which generated this result transmitted reference range : /HPF. The reference range was not used to interpret this result as normal/abnormal . Specimen Source (test code = 2795) Lab Interpretation Abnormal (test code = 66597-5) [facility]/[id number] 10:57:00 Test Item Value Reference Range Interpretation Comments Color, UA (test code Yellow = 5778-6) Clarity, UA (test Slightly Cloudy code = 5767-9) Specific [place], UA 1.025 1.001-1.035 (test code = 5811-5) pH, UA (test code = 5.0 5.0-8.0 5803-2) Protein, UA (test 100 mg/dL Negative A code = 85176-0) Glucose, UA (test Negative Negative code = 365) Ketones, UA (test Negative Negative code = 2514-8) Bilirubin, UA (test Negative Negative code = 73936-9) Blood, UA (test code Small Negative A = 34713-8) Nitrite, UA (test Negative Negative code = 5802-4) Leukocytes, UA (test Negative Negative code = 5799-2) Urobilinogen, UA 0.2 mg/dL 0.2-1.0 (test code = 13616-5) Bacteria, UA (test Occasional code = 08575-7) RBC, UA (test code = 5-10 See_Comment [Autom ated 799-7) message] The system which generated this result transmitted reference range : /HPF. The reference range was not used to interpret this result as normal/abnormal . WBC, UA (test code = <5 See_Comment [Autom ated 34544-1) message] The system which generated this result transmitted reference range : /HPF. The reference range was not used to interpret this result as normal/abnormal . SQUAMOUS EPITHELIAL <5 See_Comment [Automa josé luis (test code = 77462-8) messag e] The system which generated this result transmitted reference range : /HPF. The reference range was not used to interpret this result as normal/abnormal . Specimen Source (test code = 2795) Lab Interpretation Abnormal (test code = 69210-5) [facility]/[id number] 10:57:00 Test Item Value Reference Range Interpretation Comments Color, UA (test code Yellow = 5778-6) Clarity, UA (test Slightly Cloudy code = 5767-9) Specific [place], UA 1.025 1.001-1.035 (test code = 5811-5) pH, UA (test code = 5.0 5.0-8.0 5803-2) Protein, UA (test 100 mg/dL Negative A code = 07535-4) Glucose, UA (test Negative Negative code = 365) Ketones, UA (test Negative Negative code = 2514-8) Bilirubin, UA (test Negative Negative code = 89551-4) Blood, UA (test code Small Negative A = 23695-7) Nitrite, UA (test Negative Negative code = 5802-4) Leukocytes, UA (test Negative Negative code = 5799-2) Urobilinogen, UA 0.2 mg/dL 0.2-1.0 (test code = 60104-2) Bacteria, UA (test Occasional code = 19749-1) RBC, UA (test code = 5-10 See_Comment [Autom ated 799-7) message] The system which generated this result transmitted reference range : /HPF. The reference range was not used to interpret this result as normal/abnormal . WBC, UA (test code = <5 See_Comment [Autom ated 41713-2) message] The system which generated this result transmitted reference range : /HPF. The reference range was not used to interpret this result as normal/abnormal . SQUAMOUS EPITHELIAL <5 See_Comment [Automa josé luis (test code = 90232-3) quintin e] The system which generated this result transmitted reference range : /HPF. The reference range was not used to interpret this result as normal/abnormal . Specimen Source (test code = 2795) Lab Interpretation Abnormal (test code = 57862-0) [facility] [id number] 10:57:00 Test Item Value Reference Range Interpretation [...] pg/mL 0-100 H (test code = 700) Sole Molder ID - [id number], RENAL, [id number] 08:56:00Reason for exam:- >[facility] : 1975 Sex: [...] MDReport Verified Date/Time: 04/03/2020 08:56:12 Reading Location: [facility] Radiology Reading Room CT, EXTREMITY, LOWER WITHOUT CONTRAST, [id number] 08:50:00Unlisted Reason for Exam - Click Yes and Enter Reason Below->YesL Foot woundUnlisted Reason for Exam->L Foot infection to r/o osteomyelitisPlease specify:->Foot [facility] : 1975 Sex: MFINAL [...] Gonzales Verified Date/Time: 04/03/2020 08:50:03 Reading Location: [facility] B1 C013X Ortho Consult Reading Room CT lower extremity without IV contrast [id number] 08:50:00Interface, External Ris In - 04/03/2020 8:52 [...] Gonzales Verified Date/Time: 04/03/2020 08:50:03 Reading Location: [address] [facility] [id number] 08:50:00 Interface, External Ris In - 04/03/2020 [...] clinical concern, consider MRI correlation. Signed: Lacie Gonzaleseport Verified Date/Time: 04/03/2020 08:50:03 Reading Location: [address] [facility] [id number] 08:50:00Interface, External Ris In - 04/03/2020 8:52 [...] MDReport Verified Date/Time: 04/03/2020 08:50:03 Reading Location: [facility] B1 C013X [facility] [id number] 08:50:00Interface, External Ris In - 04/03/2020 8:52 [...] clinical concern, consider MRI correlation. Signed: Lacie Gonzalesort Verified Date/Time: 04/03/2020 08:50:03 Reading Location: [facility] C013X Ortho Consult Reading [facility] POCT-GLUCOSE [id number] 07:39:00 Test Item Value Reference Range Interpretation Comments POC-GLUCOSE METER 178 mg/dL 70-110 H : TESTED A T [address] (BEAKER) (test code [address], = 1538) [facility] [place] [address]: Sole Molder/Techni cornelia ID = [id number] for Tiff Roach BASIC METABOLIC [id number] 06:16:00 Test Item Value Reference Range Interpretation [...] S NOT APPLICABLE FOR DIALYSIS PATIEN TS. Sole Molder ID - LITOOperator ID - LITOOperator ID - LITOOperator ID - LITOOperator ID - LITOOperator ID - LITOOperator ID - LITOOperator ID - LITOOperator ID - LITOOperator ID - LITOOperator ID - LITOOperator ID - LITOOperator ID - LITOCBC (Hemogram only)2020-04-03 05:47:00 Test Item Value Reference Range Interpretation Comments WBC (test code = 6690-2) 8.9 See_Comment [A utomated message] The system RegisterPatient generated this result transmitted ref erence range: 4.0 - 10 .0 K/L. The refe rence range was not u sed to interpret this result as normal/abnor mal. RBC (test code = 789-8) 3.59 See_Comment L [Au tomated message] The system RegisterPatient generated this result transmitted ref erence range: 4.20 - 5 .80 M/L. The refe rence range was not u sed to interpret this result as normal/abnor mal. MCHC (test code = 786-4) 32.4 See_Comment L [A utomated message] The system RegisterPatient generated this result transmitted ref erence range: [...] See_Comment [Aut omated message] 777-3) The system RegisterPatient generated this result transmitted ref erence range: 150 - 43 0 K/CU MM. The referen ce range was not u sed to interpret this result as normal/abnor mal. MPV (test code = 11.7 fL 6-11.5 H 90551-4) nRBC (test code = 413) 0 See_Comment [Aut omated message] The system RegisterPatient generated this result transmitted ref erence range: 0 - 0 /1 00 WBC. The refere nce range was not u sed to interpret this result as normal/abnor mal. Lab Interpretation (test Abnormal code = 85933-7) [facility]2020-04-03 05:47:00 Test Item Value Reference Range Interpretation Comments WBC (test code = 6690-2) 8.9 See_Comment [A utomated message] The system RegisterPatient generated this result transmitted ref erence range: 4.0 - 10 .0 K/L. The refe rence range was not u sed to interpret this result as normal/abnor mal. RBC (test code = 789-8) 3.59 See_Comment L [Au tomated message] The system RegisterPatient generated this result transmitted ref erence range: 4.20 - 5 .80 M/L. The refe rence range was not u sed to interpret this result as normal/abnor mal. MCHC (test code = 786-4) 32.4 See_Comment L [A utomated message] The system RegisterPatient generated this result transmitted ref erence range: [...] See_Comment [Aut omated message] 777-3) The system RegisterPatient generated this result transmitted ref erence range: 150 - 43 0 K/CU MM. The referen ce range was not u sed to interpret this result as normal/abnor mal. MPV (test code = 11.7 fL 6-11.5 H 24805-5) nRBC (test code = 413) 0 See_Comment [Aut omated message] The system RegisterPatient generated this result transmitted ref erence range: 0 - 0 /1 00 WBC. The refere nce range was not u sed to interpret this result as normal/abnor mal. Lab Interpretation (test Abnormal code = 16485-5) [facility] (Hemogram only)2020-04-03 05:47:00 Test Item Value Reference Range Interpretation Comments WBC (test code = 6690-2) 8.9 See_Comment [A utomated message] The system RegisterPatient generated this result transmitted ref erence range: 4.0 - 10 .0 K/L. The refe rence range was not u sed to interpret this result as normal/abnor mal. RBC (test code = 789-8) 3.59 See_Comment L [Au tomated message] The system RegisterPatient generated this result transmitted ref erence range: 4.20 - 5 .80 M/L. The refe rence range was not u sed to interpret this result as normal/abnor mal. MCHC (test code = 786-4) 32.4 See_Comment L [A utomated message] The system RegisterPatient generated this result transmitted ref erence range: [...] See_Comment [Aut omated message] 777-3) The system RegisterPatient generated this result transmitted ref erence range: 150 - 43 0 K/CU MM. The referen ce range was not u sed to interpret this result as normal/abnor mal. MPV (test code = 11.7 fL 6-11.5 H 21960-8) nRBC (test code = 413) 0 See_Comment [Aut omated message] The system RegisterPatient generated this result transmitted ref erence range: 0 - 0 /1 00 WBC. The refere nce range was not u sed to interpret this result as normal/abnor mal. Lab Interpretation (test Abnormal code = 38685-5) [facility] (Hemogram only)2020-04-03 05:47:00 Test Item Value Reference Range Interpretation Comments WBC (test code = 6690-2) 8.9 See_Comment [A utomated message] The system Troodon generated this result transmitted ref erence range: 4.0 - 10 .0 K/L. The refe rence range was not u sed to interpret this result as normal/abnor mal. RBC (test code = 789-8) 3.59 See_Comment L [Au tomated message] The system RegisterPatient generated this result transmitted ref erence range: 4.20 - 5 .80 M/L. The refe rence range was not u sed to interpret this result as normal/abnor mal. MCHC (test code = 786-4) 32.4 See_Comment L [A utomated message] The system RegisterPatient generated this result transmitted ref erence range: [...] See_Comment [Aut omated message] 777-3) The system RegisterPatient generated this result transmitted ref erence range: 150 - 43 0 K/CU MM. The referen ce range was not u sed to interpret this result as normal/abnor mal. MPV (test code = 11.7 fL 6-11.5 H 15357-2) nRBC (test code = 413) 0 See_Comment [Aut omated message] The system RegisterPatient generated this result transmitted ref erence range: 0 - 0 /1 00 WBC. The refere nce range was not u sed to interpret this result as normal/abnor mal. Lab Interpretation (test Abnormal code = 90748-8) [facility] (Hemogram only)2020-04-03 05:47:00 Test Item Value Reference Range Interpretation Comments WBC (test code = 6690-2) 8.9 See_Comment [A utomated message] The system RegisterPatient generated this result transmitted ref erence range: 4.0 - 10 .0 K/L. The refe rence range was not u sed to interpret this result as normal/abnor mal. RBC (test code = 789-8) 3.59 See_Comment L [Au tomated message] The system RegisterPatient generated this result transmitted ref erence range: 4.20 - 5 .80 M/L. The refe rence range was not u sed to interpret this result as normal/abnor mal. MCHC (test code = 786-4) 32.4 See_Comment L [A utomated message] The system RegisterPatient generated this result transmitted ref erence range: [...] See_Comment [Aut omated message] 777-3) The system RegisterPatient generated this result transmitted ref erence range: 150 - 43 0 K/CU MM. The referen ce range was not u sed to interpret this result as normal/abnor mal. MPV (test code = 11.7 fL 6.0-11.5 H 78402-3) nRBC (test code = 413) 0 See_Comment [Aut omated message] The system RegisterPatient generated this result transmitted ref erence range: 0 - 0 /1 00 WBC. The refere nce range was not u sed to interpret this result as normal/abnor mal. Lab Interpretation (test Abnormal code = 60487-4) [facility] (Hemogram only)2020-04-03 05:47:00 Test Item Value Reference Range Interpretation Comments WBC (test code = 6690-2) 8.9 See_Comment [A utomated message] The system RegisterPatient generated this result transmitted ref erence range: 4.0 - 10 .0 K/L. The refe rence range was not u sed to interpret this result as normal/abnor mal. RBC (test code = 789-8) 3.59 See_Comment L [Au tomated message] The system RegisterPatient generated this result transmitted ref erence range: 4.20 - 5 .80 M/L. The refe rence range was not u sed to interpret this result as normal/abnor mal. MCHC (test code = 786-4) 32.4 See_Comment L [A utomated message] The system RegisterPatient generated this result transmitted ref erence range: [...] See_Comment [Aut omated message] 777-3) The system RegisterPatient generated this result transmitted ref erence range: 150 - 43 0 K/CU MM. The referen ce range was not u sed to interpret this result as normal/abnor mal. MPV (test code = 11.7 fL 6.0-11.5 H 13941-1) nRBC (test code = 413) 0 See_Comment [Aut omated message] The system RegisterPatient generated this result transmitted ref erence range: 0 - 0 /1 00 WBC. The refere nce range was not u sed to interpret this result as normal/abnor mal. Lab Interpretation (test Abnormal code = 34329-7) [facility] (Hemogram only)2020-04-03 05:47:00 Test Item Value Reference Range Interpretation Comments WBC (test code = 6690-2) 8.9 See_Comment [A utomated message] The system RegisterPatient generated this result transmitted ref erence range: 4.0 - 10 .0 K/L. The refe rence range was not u sed to interpret this result as normal/abnor mal. RBC (test code = 789-8) 3.59 See_Comment L [Au tomated message] The system RegisterPatient generated this result transmitted ref erence range: 4.20 - 5 .80 M/L. The refe rence range was not u sed to interpret this result as normal/abnor mal. MCHC (test code = 786-4) 32.4 See_Comment L [A utomated message] The system RegisterPatient generated this result transmitted ref erence range: [...] See_Comment [Aut omated message] 777-3) The system RegisterPatient generated this result transmitted ref erence range: 150 - 43 0 K/CU MM. The referen ce range was not u sed to interpret this result as normal/abnor mal. MPV (test code = 11.7 fL 6.0-11.5 H 34667-8) nRBC (test code = 413) 0 See_Comment [Aut omated message] The system RegisterPatient generated this result transmitted ref erence range: 0 - 0 /1 00 WBC. The refere nce range was not u sed to interpret this result as normal/abnor mal. Lab Interpretation (test Abnormal code = 18902-3) [facility] (HEMOGRAM ONLY)2020-04-03 05:47:00 Test Item Value [...] (BEAKER) (test code = 413) VANCOMYCIN LEVEL, [id number] 22:37:00 Test Item Value Reference Range Interpretation Comments VANCOMYCIN TROUGH (BEAKER) (test 18.7 ug/mL 10.0-20.0 code = 522) Sole Molder ID - JUSTINPOCT-GLUCOSE [id number] 21:28:00 Test Item Value Reference Range Interpretation Comments POC-GLUCOSE METER 234 mg/dL 70-110 H : TESTED A T [address] (BEAKER) (test code [facility] [address], = 1538) [place] [address]: Sole Molder/Techni cornelia ID = [id number] for Cb li Heidy POCT-GLUCOSE [id number] 16:03:00 Test Item Value Reference Range Interpretation Comments POC-GLUCOSE METER 262 mg/dL 70-110 H : TESTED A T [address] (BEAKER) (test code [address], = 1538) [place] [address]: Sole Molder/Techni cornelia ID = [id number] for Buff ord, Jesi POCT-GLUCOSE [id number] 11:56:00 Test Item Value Reference Range Interpretation Comments POC-GLUCOSE METER 190 mg/dL 70-110 H : TESTED A T [address] (BEAKER) (test code [facility] [address], = 1538) [place] [address]: Sole Molder/Techni cornelia ID = [id number] for Buff ord, Jesi BASIC METABOLIC [id number] 06:58:00 Test Item Value Reference Range Interpretation [...] S NOT APPLICABLE FOR DIALYSIS PATIEN TS. Sole Molder ID - [id number] ID - [id number] ID - [id number] ID - [id number] ID - [id number] ID - [id number] ID - [id number] ID - wshq19Avlevnxp ID - [id number] ID - [id number] ID - [id number] ID - [id number] ID - [id number] (HEMOGRAM ONLY)2020-04-02 06:43:00 Test Item Value Reference [...] 0-0 (BEAKER) (test code = 413) POCT-GLUCOSE [id number] 16:21:00 Test Item Value Reference Range Interpretation Comments POC-GLUCOSE METER 262 mg/dL 70-110 H : TESTED A T [address] (BEAKER) (test [facility] [address] [address], = [address]) [place] [address]: Sole Molder/Techni cornelia ID = [id number] for Buff justyn, Jesi POCT-GLUCOSE [id number] 13:00:00 Test Item Value Reference Range Interpretation Comments POC-GLUCOSE METER 256 mg/dL 70-110 H : TESTED A T [address] (BEAKER) (test code [address], = 1538) [place] [address]: Sole Molder/Techni cornelia ID = [id number] for Palm er, Ealine POCT-GLUCOSE [id number] 11:49:00 Test Item Value Reference Range Interpretation Comments POC-GLUCOSE METER 255 mg/dL 70-110 H : TESTED A T [address] (BEAKER) (test code [address], = 1538) [place] [address]: Sole Molder/Techni cornelia ID = [id number] for Wash savanah Karina POCT-GLUCOSE [id number] 07:53:00 Test Item Value Reference Range Interpretation Comments POC-GLUCOSE METER 296 mg/dL 70-110 H : TESTED A T [facility] 1317 (BEAKER) (test code [facility] [address] [address], = 15[address]) [place] [address]: Sole Molder/Techni cornelia ID = [id number] for Jesi Espinal BASIC METABOLIC [id number] 06:06:00 Test Item Value Reference Range Interpretation [...] S NOT APPLICABLE FOR DIALYSIS PATIEN TS. Sole Molder ID - ANSBERTOGOperator ID - ANSBERTOGOperator ID - ANSBERTOGOperator ID - ANSBERTOGOperatorID - ANSBERTOGOperator ID - ANSBERTOGOperator ID - ANSBERTOGOperator ID - ANSBERTOGOperator ID - ANSBERTOGOperator ID - ANSBERTOGOperator ID - ANSBERTOGOperator ID - ANSBERTOGOperator ID - ANSBERTOG POCT-GLUCOSE [id number] 20:54:00 Test Item Value Reference Range Interpretation Comments POC-GLUCOSE METER 252 mg/dL 70-110 H : TESTED A T [facility] [address] (BEAKER) (test code [address], = 1538) [place] [address]: Sole Molder/Techni cornelia ID = [id number] for gordon Whitehead POCT-GLUCOSE [id number] 15:59:00 Test Item Value Reference Range Interpretation Comments POC-GLUCOSE METER 335 mg/dL 70-110 H : TESTED A T [address] (BEAKER) (test code [address], = 1538) [place] [address] 478: Sole Molder/Techni cornelia ID = [id number] for Tiff Roach POCT-GLUCOSE [id number] 15:24:00 Test Item Value Reference Range Interpretation Comments POC-GLUCOSE METER 356 mg/dL 70-110 H : TESTED A T [facility] [address] (BEAKER) (test code [address], = 1538) [place] [address] 478: Sole Molder/Techni cornelia ID = [id number] for Tiff Roach POCT-GLUCOSE [id number] 07:46:00 Test Item Value Reference Range Interpretation Comments POC-GLUCOSE METER 281 mg/dL 70-110 H : TESTED A T [address] (BEAKER) (test code [address], = 1538) [place] [address] 478: Sole Molder/Techni cornelia ID = [id number] for Tiff Roach Hemoglobin [id number] 06:09:00 Test Item Value Reference Range Interpretation Comments Hemoglobin A1C (test code 12.3 % 4.3-6.1 H = 4548-4) ISSA (test code = ISSA) Sole Molder ID - [id number] Lab Interpretation (test Abnormal code = 56990-6) [id number] 06:09:00 Test Item Value Reference Range Interpretation Comments Hemoglobin A1C (test code 12.3 % 4.3-6.1 H = 4548-4) ISSA (test code = ISSA) Sole Molder ID - [id number] Lab Interpretation (test Abnormal code = 47157-9) [facility] [id number] 06:09:00 Test Item Value Reference Range Interpretation Comments Hemoglobin A1C (test code 12.3 % 4.3-6.1 H = 4548-4) ISSA (test code = ISSA) Sole Molder ID - [id number] Lab Interpretation (test Abnormal code = 23040-8) [facility] [id number] 06:09:00 Test Item Value Reference Range Interpretation Comments Hemoglobin A1C (test code 12.3 % 4.3-6.1 H = 4548-4) ISSA (test code = ISSA) Sole Molder ID - [id number] Lab Interpretation (test Abnormal code = 76645-1) [facility] [id number] 06:09:00 Test Item Value Reference Range Interpretation Comments Hemoglobin A1C (test code 12.3 % 4.3-6.1 H = 4548-4) ISSA (test code = ISSA) Sole Molder ID - [id number] Lab Interpretation (test Abnormal code = 59192-3) [facility] [id number] 06:09:00 Test Item Value Reference Range Interpretation Comments Hemoglobin A1C (test code 12.3 % 4.3-6.1 H = 4548-4) ISSA (test code = ISSA) Sole Molder ID - JBERN Lab Interpretation (test Abnormal code = 96988-2) [facility] [id number] 06:09:00 Test Item Value Reference Range Interpretation Comments Hemoglobin A1C (test code 12.3 % 4.3-6.1 H = 4548-4) ISSA (test code = ISSA) Sole Molder ID - JBERN Lab Interpretation (test Abnormal code = 34933-8) [facility] [id number] 06:09:00 Test Item Value Reference Range Interpretation Comments HEMOGLOBIN A1C (BEAKER) (test code = 12.3 % 4.3-6.1 H 368) Sole Molder ID - JBERNBASIC METABOLIC [id number] 06:04:00 Test Item Value Reference Range Interpretation [...] S NOT APPLICABLE FOR DIALYSIS PATIEN TS. Sole Molder ID - ANSBERTOGOperator ID - ANSBERTOGOperator ID - ANSBERTOGOperator ID - ANSBERTOGOperatorID - ANSBERTOGOperator ID - ANSBERTOGOperator ID - ANSBERTOGOperator ID - ANSBERTOGOperator ID - ANSBERTOGOperator ID - ANSBERTOGOperator ID - ANSBERTOGOperator ID - ANSBERTOGOperator ID - ANSBERTOG CBC W/PLT COUNT & AUTO [id number] 05:38:00 Test Item Value Reference Range Interpretation [...] = 2801) CBC W/PLT COUNT & AUTO [id number] 22:16:00 Test Item Value Reference Range Interpretation [...] PERCENT (BEAKER) (test code = 2801) POCT-GLUCOSE [id number] 22:12:00 Test Item Value Reference Range Interpretation Comments POC-GLUCOSE METER 396 mg/dL 70-110 H : TESTED A T [facility] [address] (BEAKER) (test code [facility] [address], = 1538) [facility] 77 [address]: Sole Molder/Techni cornelia ID = [id number] for Aanu siem, nikitaicity RAD, FOOT, MIN 3 VIEWS, [id number] 21:39:00Reason for exam:->L foot ulcer.[facility] : 1975 Sex: [...] Shraddha Stanley MDReport Verified Date/Time: 03/30/2020 21:39:00 BASI METABOLIC [id number] 21:34:00 Test Item Value Reference Range Interpretation [...] S NOT APPLICABLE FOR DIALYSIS PATIEN TS. Sole Molder ID - JBERNOperator ID - JBERNOperator ID - JBERNOperator ID - JBERNOperator ID - JBERNOperator ID - JBERNOperator ID - JBERNOperator ID - JBERNOperator ID - JBERNOperator ID - JBERNOperator ID- JBERNOperator ID - JBERNOperator ID - JBERNSARS-COV2/RT-PCR ([facility])2020-03-30 21:04:00 Test Item Value Reference Range Interpretation Comments SARS-COV2/RT-PCR Negative Not Detected, (test code = 7933443) Negative, See external report for linked test SARS-COV-2 PERFORM[address] Perfor med @ [facility] (test code = 4680737) BLOOD [id number] 04:00:00 Test Item Value Reference Range Interpretation Comments CULTURE (BEAKER) (test No growth in 5 days code = 1095) BLOOD [id number] 04:00:00 Test Item Value Reference Range Interpretation Comments CULTURE (BEAKER) (test No growth in 5 days code = 1095) BASIC METABOLIC [id number] 01:36:00 Test Item Value Reference Range Interpretation Comments SODIUM (BEAKER) 140 meq/L 135-148 (test code = 381) POTASSIUM (BEAKER) 4.2 meq/L 3.6-5.5 (test code = 379) CHLORIDE (BEAKER) 101 meq/L 98-106 (test code = 382) CO2 (BEAKER) (test 27 meq/L 20-29 code = 355) BLOOD UREA NITROGEN 45 [...] S NOT APPLICABLE FOR DIALYSIS PATIEN TS. Sole Molder ID - [id number] ID - [id number] ID - [id number] ID - [id number] ID - [id number] ID - [id number] ID - [id number] ID - [id number] ID - [id number] ID - [id number] ID - [id number] ID - [id number] ID - [id number]-Jcknqbry [id number] 01:34:00 Test Item Value Reference Range Interpretation Comments CRP (test code = 676) 0.66 mg/dL 0-0.5 H ISSA (test code = ISSA) Sole Molder ID - [id number] Lab Interpretation (test Abnormal code = 08278-8) [facility] [id number] 01:34:00 Test Item Value Reference Range Interpretation Comments CRP (test code = 676) 0.66 mg/dL 0-0.5 H ISSA (test code = ISSA) Sole Molder ID - [id number] Lab Interpretation (test Abnormal code = 74395-6) [facility] [id number] 01:34:00 Test Item Value Reference Range Interpretation Comments CRP (test code = 676) 0.66 mg/dL 0-0.5 H ISSA (test code = ISSA) Sole Molder ID - [id number] Lab Interpretation (test Abnormal code = 62360-3) [facility] [id number] 01:34:00 Test Item Value Reference Range Interpretation Comments CRP (test code = 676) 0.66 mg/dL 0-0.5 H ISSA (test code = ISSA) Sole Molder ID - [id number] Lab Interpretation (test Abnormal code = 01053-9) [facility] [id number] 01:34:00 Test Item Value Reference Range Interpretation Comments CRP (test code = 676) 0.66 mg/dL 0.00-0.50 H ISSA (test code = ISSA) Sole Molder ID - [id number] Lab Interpretation (test Abnormal code = 75781-4) [facility] [id number] 01:34:00 Test Item Value Reference Range Interpretation Comments CRP (test code = 676) 0.66 mg/dL 0.00-0.50 H ISSA (test code = ISSA) Sole Molder ID - [id number] Lab Interpretation (test Abnormal code = 57058-2) [facility] [id number] 01:34:00 Test Item Value Reference Range Interpretation Comments CRP (test code = 676) 0.66 mg/dL 0.00-0.50 H ISSA (test code = ISSA) Sole Molder ID - [id number] Lab Interpretation (test Abnormal code = 00135-8) [facility] [id number] 01:34:00 Test Item Value Reference Range Interpretation Comments C-REACTIVE PROTEIN (BEAKER) (test 0.66 mg/dL 0.00-0.50 H code = 676) Sole Molder ID - [id number] ACID, [id number] 01:33:00 Test Item Value Reference Range Interpretation Comments LACTATE BLOOD VENOUS (2) (BEAKER) 1.75 mmol/L 0.50-<2.00 (test code = 2872) Sole Molder ID - [id number] ID - [id number] ID - [id number] ID - [id number] CBC W/PLT COUNT & AUTO [id number] 01:21:00 Test Item Value Reference Range Interpretation [...] = 2801) RAD, FOOT, MIN 3 VIEWS, [id number] 00:51:00Reason for exam:->[facility] 1975 Sex: MFINAL REPORT TECHNIQUE: Frontal, oblique, and lateral views of theleft foot. INDICATION: ABSCESS. COMPARISON: None. IMPRESSION:There is soft tissue swelling with superficial skin defect compatible with ulceration along the plantar tissues of the distal midfoot. No osseous erosion. No acute fracture or dislocation. Joint spaces are preserved. Peripheral vascular calcifications are evident. Signed: Jazmin Freeman MDReport Verified Date/Time: 03/20/2020 00:51:45 Panel Description: Hemoglobin A1c/Hemoglobin.total in [id number] 11:40:00 Test Item Value Reference Range Interpretation Comments Hemoglobin A1c (test code 13.1 % 4.8-5.6 H = 4548-4) . Prediabetes: 5. 7 - 6.4 Diabete s: >6.4 Glycemi c control for niall lts with diabetes: <7.0

P erforme d by:
[facility] ([place])

[employer] Description: Hemoglobin A1c/Hemoglobin.total in Blood 2020-03-07 11:40:00 Test Item Value Reference Range Interpretation Comments Hemoglobin A1c (test code 13.1 % 4.8-5.6 H = 4548-4) . Prediabetes: 5. 7 - 6.4 Diabete s: >6.4 Glycemi c control for niall lts with diabetes: <7.0

P erforme d by:
[facility] [place] ([place])

[employer] Description: Hemoglobin A1c/Hemoglobin.total in Blood 2020-03-07 11:40:00 Test Item Value Reference Range Interpretation Comments Hemoglobin A1c (test code 13.1 % 4.8-5.6 H = 4548-4) . Prediabetes: 5. 7 - 6.4 Diabete s: >6.4 Glycemi c control for niall lts with diabetes: <7.0

P erforme d by:
[facility] [place] ([place])

[facility] [employer] Description: Hemoglobin A1c/Hemoglobin.total in Blood 2020-03-07 11:40:00 Test Item Value Reference Range Interpretation Comments Hemoglobin A1c (test code 13.1 % 4.8-5.6 H = 4548-4) . Prediabetes: 5. 7 - 6.4 Diabete s: >6.4 Glycemi c control for niall lts with diabetes: <7.0

P erforme d by:
[facility] [place] ([place])

[facility] [employer] Description: Hemoglobin A1c/Hemoglobin.total in Blood 2020-03-07 11:40:00 Test Item Value Reference Range Interpretation Comments Hemoglobin A1c (test code 13.1 % 4.8-5.6 H = 4548-4) . Prediabetes: 5. 7 - 6.4 Diabete s: >6.4 Glycemi c control for niall lts with diabetes: <7.0

P erforme d by:
[facility] [place] ([place])

[facility] [employer] Description: Hemoglobin A1c/Hemoglobin.total in Blood 2020-03-07 11:40:00 Test Item Value Reference Range Interpretation Comments Hemoglobin A1c (test code 13.1 % 4.8-5.6 H = 4548-4) . Prediabetes: 5. 7 - 6.4 Diabete s: >6.4 Glycemi c control for niall lts with diabetes: <7.0

P erforme d by:
[facility] [place] ([place])

[employer] Description: Hemoglobin A1c/Hemoglobin.total in Blood 2020-03-07 11:40:00 Test Item Value Reference Range Interpretation Comments Hemoglobin A1c (test code 13.1 % 4.8-5.6 H = 4548-4) . Prediabetes: 5. 7 - 6.4 Diabete s: >6.4 Glycemi c control for niall lts with diabetes: <7.0

P erforme d by:
[facility] [place] ([place])

[facility] [employer] Description: Hemoglobin A1c/Hemoglobin.total in Blood 2020-03-07 11:40:00 Test Item Value Reference Range Interpretation Comments Hemoglobin A1c (test code 13.1 % 4.8-5.6 H = 4548-4) . Prediabetes: 5. 7 - 6.4 Diabete s: >6.4 Glycemi c control for niall lts with diabetes: <7.0

P erforme d by:
[facility] [place] ([place])

[employer] Description: Hemoglobin A1c/Hemoglobin.total in Blood 2020-03-07 11:40:00 Test Item Value Reference Range Interpretation Comments Hemoglobin A1c (test code 13.1 % 4.8-5.6 H = 4548-4) . Prediabetes: 5. 7 - 6.4 Diabete s: >6.4 Glycemi c control for niall lts with diabetes: <7.0

P erforme d by:
[facility] [place] ([place])

[facility] [employer] Description: Hemoglobin A1c/Hemoglobin.total in Blood 2020-03-07 11:40:00 Test Item Value Reference Range Interpretation Comments Hemoglobin A1c (test code 13.1 % 4.8-5.6 H = 4548-4) . Prediabetes: 5. 7 - 6.4 Diabete s: >6.4 Glycemi c control for niall lts with diabetes: <7.0

P erforme d by:
[facility] [place] ([place])

[employer] Description: Hemoglobin A1c/Hemoglobin.total in Blood 2020-03-07 11:40:00 Test Item Value Reference Range Interpretation Comments Hemoglobin A1c (test code 13.1 % 4.8-5.6 H = 4548-4) . Prediabetes: 5. 7 - 6.4 Diabete s: >6.4 Glycemi c control for niall lts with diabetes: <7.0

P erforme d by:
[facility] [place] ([place])

[facility] Description: Hemoglobin A1c/Hemoglobin.total in Blood 2020-03-07 11:40:00 Test Item Value Reference Range Interpretation Comments Hemoglobin A1c (test code 13.1 % 4.8-5.6 H = 4548-4) . Prediabetes: 5. 7 - 6.4 Diabete s: >6.4 Glycemi c control for niall lts with diabetes: <7.0

P erforme d by:
[facility] [place] ([place])

[employer] Description: Hemoglobin A1c/Hemoglobin.total in Blood 2020-03-07 11:40:00 Test Item Value Reference Range Interpretation Comments Hemoglobin A1c (test code 13.1 % 4.8-5.6 H = 4548-4) . Prediabetes: 5. 7 - 6.4 Diabete s: >6.4 Glycemi c control for niall lts with diabetes: <7.0

P erforme d by:
[facility] [place] ([place])

[facility] Description: Hemoglobin A1c/Hemoglobin.total in Blood 2020-03-07 11:40:00 Test Item Value Reference Range Interpretation Comments Hemoglobin A1c (test code 13.1 % 4.8-5.6 H = 4548-4) . Prediabetes: 5. 7 - 6.4 Diabete s: >6.4 Glycemi c control for niall lts with diabetes: <7.0

P erforme d by:
[facility] [place] ([place])

[employer] Description: Hemoglobin A1c/Hemoglobin.total in Blood 2020-03-07 11:40:00 Test Item Value Reference Range Interpretation Comments Hemoglobin A1c (test code 13.1 % 4.8-5.6 H = 4548-4) . Prediabetes: 5. 7 - 6.4 Diabete s: >6.4 Glycemi c control for niall lts with diabetes: <7.0

P erforme d by:
[facility] [place] ([place])

[facility] Description: Hemoglobin A1c/Hemoglobin.total in Blood 2020-03-07 11:40:00 Test Item Value Reference Range Interpretation Comments Hemoglobin A1c (test code 13.1 % 4.8-5.6 H = 4548-4) . Prediabetes: 5. 7 - 6.4 Diabete s: >6.4 Glycemi c control for niall lts with diabetes: <7.0

P erforme d by:
[facility] [place] ([place])

[facility] [employer] Description: Hemoglobin A1c/Hemoglobin.total in Blood 2020-03-07 11:40:00 Test Item Value Reference Range Interpretation Comments Hemoglobin A1c (test code 13.1 % 4.8-5.6 H = 4548-4) . Prediabetes: 5. 7 - 6.4 Diabete s: >6.4 Glycemi c control for niall lts with diabetes: <7.0

P erforme d by:
[facility] ([place])

[employer] Description: Lipid [id number] 08:03:00 Test Item Value Reference Range Interpretation Comments Cholesterol, Total (test code = 209 mg/dL 100-199 H 3-3) Triglycerides (test code = 2571-8) 172 mg/dL 0-149 H HDL Cholesterol (test code = 29 mg/dL >39 L 5-9) VLDL Cholesterol Renuka (test code = 32 mg/dL 5-40 05557-3) LDL Chol Calc (NIH) (test code = 148 mg/dL 0-99 H 26304-8) Comment: (test code = 97125-9) [employer] Description: Lipid [id number] 08:03:00 Test Item Value Reference Range Interpretation Comments Cholesterol, Total (test code = 209 mg/dL 100-199 H 3-3) Triglycerides (test code = 2571-8) 172 mg/dL 0-149 H HDL Cholesterol (test code = 29 mg/dL >39 L 5-9) VLDL Cholesterol Renuka (test code = 32 mg/dL 5-40 58026-3) LDL Chol Calc (NIH) (test code = 148 mg/dL 0-99 H 01663-9) Comment: (test code = 50986-4) [employer] Description: Lipid [id number] 08:03:00 Test Item Value Reference Range Interpretation Comments Cholesterol, Total (test code = 209 mg/dL 100-199 H 3-3) Triglycerides (test code = 2571-8) 172 mg/dL 0-149 H HDL Cholesterol (test code = 29 mg/dL >39 L 2085-9) VLDL Cholesterol Renuka (test code = 32 mg/dL 5-40 15154-9) LDL Chol Calc (NIH) (test code = 148 mg/dL 0-99 H 82747-6) Comment: (test code = 25620-6) [employer] Description: Lipid [id number] 08:03:00 Test Item Value Reference Range Interpretation Comments Cholesterol, Total (test code = 209 mg/dL 100-199 H 2093-3) Triglycerides (test code = 2571-8) 172 mg/dL 0-149 H HDL Cholesterol (test code = 29 mg/dL >39 L 2085-9) VLDL Cholesterol Renuka (test code = 32 mg/dL 5-40 97867-5) LDL Chol Calc (NIH) (test code = 148 mg/dL 0-99 H 07953-7) Comment: (test code = 24556-3) [employer] Description: Lipid [id number] 08:03:00 Test Item Value Reference Range Interpretation Comments Cholesterol, Total (test code = 209 mg/dL 100-199 H 2093-3) Triglycerides (test code = 2571-8) 172 mg/dL 0-149 H HDL Cholesterol (test code = 29 mg/dL >39 L 2085-9) VLDL Cholesterol Renuka (test code = 32 mg/dL 5-40 60833-5) LDL Chol Calc (NIH) (test code = 148 mg/dL 0-99 H 76280-9) Comment: (test code = 15619-9) [employer] Description: Lipid [id number] 08:03:00 Test Item Value Reference Range Interpretation Comments Cholesterol, Total (test code = 209 mg/dL 100-199 H 2093-3) Triglycerides (test code = 2571-8) 172 mg/dL 0-149 H HDL Cholesterol (test code = 29 mg/dL >39 L 2085-9) VLDL Cholesterol Renuka (test code = 32 mg/dL 5-40 66250-5) LDL Chol Calc (NIH) (test code = 148 mg/dL 0-99 H 18005-9) Comment: (test code = 69995-9) [employer] Description: Lipid [id number] 08:03:00 Test Item Value Reference Range Interpretation Comments Cholesterol, Total (test code = 209 mg/dL 100-199 H 2093-3) Triglycerides (test code = 2571-8) 172 mg/dL 0-149 H HDL Cholesterol (test code = 29 mg/dL >39 L 2085-9) VLDL Cholesterol Renuka (test code = 32 mg/dL 5-40 14489-8) LDL Chol Calc (NIH) (test code = 148 mg/dL 0-99 H 19069-8) Comment: (test code = 04196-6) [employer] Description: Lipid [id number] 08:03:00 Test Item Value Reference Range Interpretation Comments Cholesterol, Total (test code = 209 mg/dL 100-199 H 2093-3) Triglycerides (test code = 2571-8) 172 mg/dL 0-149 H HDL Cholesterol (test code = 29 mg/dL >39 L 5-9) VLDL Cholesterol Renuka (test code = 32 mg/dL 5-40 80098-9) LDL Chol Calc (NIH) (test code = 148 mg/dL 0-99 H 91608-6) Comment: (test code = 36534-0) [employer] Description: Lipid [id number] 08:03:00 Test Item Value Reference Range Interpretation Comments Cholesterol, Total (test code = 209 mg/dL 100-199 H 2093-3) Triglycerides (test code = 2571-8) 172 mg/dL 0-149 H HDL Cholesterol (test code = 29 mg/dL >39 L 5-9) VLDL Cholesterol Renuka (test code = 32 mg/dL 5-40 27215-5) LDL Chol Calc (NIH) (test code = 148 mg/dL 0-99 H 79307-7) Comment: (test code = 38458-9) [employer] Description: Lipid [id number] 08:03:00 Test Item Value Reference Range Interpretation Comments Cholesterol, Total (test code = 209 mg/dL 100-199 H 2093-3) Triglycerides (test code = 2571-8) 172 mg/dL 0-149 H HDL Cholesterol (test code = 29 mg/dL >39 L 5-9) VLDL Cholesterol Renuka (test code = 32 mg/dL 5-40 17955-4) LDL Chol Calc (NIH) (test code = 148 mg/dL 0-99 H 00802-7) Comment: (test code = 44163-1) [employer] Description: Lipid [id number] 08:03:00 Test Item Value Reference Range Interpretation Comments Cholesterol, Total (test code = 209 mg/dL 100-199 H 2093-3) Triglycerides (test code = 2571-8) 172 mg/dL 0-149 H HDL Cholesterol (test code = 29 mg/dL >39 L 5-9) VLDL Cholesterol Renuka (test code = 32 mg/dL 5-40 38831-5) LDL Chol Calc (NIH) (test code = 148 mg/dL 0-99 H 19707-6) Comment: (test code = 76091-0) [employer] Description: Lipid [id number] 08:03:00 Test Item Value Reference Range Interpretation Comments Cholesterol, Total (test code = 209 mg/dL 100-199 H 3-3) Triglycerides (test code = 2571-8) 172 mg/dL 0-149 H HDL Cholesterol (test code = 29 mg/dL >39 L 5-9) VLDL Cholesterol Renuka (test code = 32 mg/dL 5-40 12153-1) LDL Chol Calc (NIH) (test code = 148 mg/dL 0-99 H 59994-7) Comment: (test code = 81757-5) [employer] Description: Lipid [id number] 08:03:00 Test Item Value Reference Range Interpretation Comments Cholesterol, Total (test code = 209 mg/dL 100-199 H 3-3) Triglycerides (test code = 2571-8) 172 mg/dL 0-149 H HDL Cholesterol (test code = 29 mg/dL >39 L 5-9) VLDL Cholesterol Renuka (test code = 32 mg/dL 5-40 78207-4) LDL Chol Calc (NIH) (test code = 148 mg/dL 0-99 H 59892-1) Comment: (test code = 84938-4) [employer] Description: Lipid [id number] 08:03:00 Test Item Value Reference Range Interpretation Comments Cholesterol, Total (test code = 209 mg/dL 100-199 H 3-3) Triglycerides (test code = 2571-8) 172 mg/dL 0-149 H HDL Cholesterol (test code = 29 mg/dL >39 L 5-9) VLDL Cholesterol Renuka (test code = 32 mg/dL 5-40 06477-0) LDL Chol Calc (NIH) (test code = 148 mg/dL 0-99 H 14191-1) Comment: (test code = 16462-5) [employer] Description: Lipid [id number] 08:03:00 Test Item Value Reference Range Interpretation Comments Cholesterol, Total (test code = 209 mg/dL 100-199 H 2093-3) Triglycerides (test code = 2571-8) 172 mg/dL 0-149 H HDL Cholesterol (test code = 29 mg/dL >39 L 2085-9) VLDL Cholesterol Renuka (test code = 32 mg/dL 5-40 38684-6) LDL Chol Calc (NIH) (test code = 148 mg/dL 0-99 H 54521-3) Comment: (test code = 46716-9) [employer] Description: Lipid [id number] 08:03:00 Test Item Value Reference Range Interpretation Comments Cholesterol, Total (test code = 209 mg/dL 100-199 H 2093-3) Triglycerides (test code = 2571-8) 172 mg/dL 0-149 H HDL Cholesterol (test code = 29 mg/dL >39 L 2085-9) VLDL Cholesterol Ernuka (test code = 32 mg/dL 5-40 13761-7) LDL Chol Calc (NIH) (test code = 148 mg/dL 0-99 H 67310-6) Comment: (test code = 71905-2) [employer] Description: Lipid [id number] 08:03:00 Test Item Value Reference Range Interpretation Comments Cholesterol, Total (test code = 209 mg/dL 100-199 H 2093-3) Triglycerides (test code = 2571-8) 172 mg/dL 0-149 H HDL Cholesterol (test code = 29 mg/dL >39 L 2085-9) VLDL Cholesterol Ren[place] (test code = 32 mg/dL 5-40 73446-3) LDL Chol Calc (NIH) (test code = 148 mg/dL 0-99 H 37481-9) Comment: (test code = 17023-5) [employer] Description: Comp. Metabolic Panel (14)2020-03-07 06:49:00 Test Item Value Reference Range Interpretation Comments Glucose (test code = 2345-7) 441 mg/dL 65-99 H BUN (test code = 3094-0) 52 mg/dL 6-24 H Creatinine (test code = 2.05 mg/dL 0.76-1.27 H 2160-0) eGFR If NonAfricn Am (test 38 mL/min/1.73 >59 L code = 05392-5) eGFR If Africn Am (test code = 44 mL/min/1.73 >59 L 67692-1) BUN/Creatinine Ratio (test 25 9-20 H code = 3097-3) Sodium (test code = 2951-2) 138 mmol/L 134-144 Potassium (test code = 2823-3) 5.4 mmol/L 3.5-5.2 H Chloride (test code = 2075-0) 96 mmol/L 96-106 Carbon Dioxide, Total (test 29 mmol/L 20-29 code = 2028-9) Calcium (test code = 05772-8) 9.2 mg/dL 8.7-10.2 Protein, Total (test code = 6.2 g/dL 6.0-8.5 2885-2) Albumin (test code = 1751-7) 3.4 g/dL 4.0-5.0 L Globulin, Total (test code = 2.8 g/dL 1.5-4.5 28364-9) A/G Ratio (test code = 1759-0) 1.2 1.2-2.2 Bilirubin, Total (test code = 0.5 mg/dL 0.0-1.2 1975-2) Alkaline Phosphatase (test 112 IU/L 39-117 code = 6768-6) AST (SGOT) (test code = 21 IU/L 0-40 1920-8) ALT (SGPT) (test code = 31 IU/L 0-44 1742-6) [facility] Description: Comp. Metabolic Panel (14)2020-03-07 06:49:00 Test Item Value Reference Range Interpretation Comments Glucose (test code = 2345-7) 441 mg/dL 65-99 H BUN (test code = 3094-0) 52 mg/dL 6-24 H Creatinine (test code = 2.05 mg/dL 0.76-1.27 H 2160-0) eGFR If NonAfricn Am (test 38 mL/min/1.73 >59 L code = 05710-1) eGFR If Africn Am (test code = 44 mL/min/1.73 >59 L 52298-8) BUN/Creatinine Ratio (test 25 9-20 H code = 3097-3) Sodium (test code = 2951-2) 138 mmol/L 134-144 Potassium (test code = 2823-3) 5.4 mmol/L 3.5-5.2 H Chloride (test code = 2075-0) 96 mmol/L 96-106 Carbon Dioxide, Total (test 29 mmol/L 20-29 code = 2028-9) Calcium (test code = 81423-0) 9.2 mg/dL 8.7-10.2 Protein, Total (test code = 6.2 g/dL 6.0-8.5 2885-2) Albumin (test code = 1751-7) 3.4 g/dL 4.0-5.0 L Globulin, Total (test code = 2.8 g/dL 1.5-4.5 37600-0) A/G Ratio (test code = 1759-0) 1.2 1.2-2.2 Bilirubin, Total (test code = 0.5 mg/dL 0.0-1.2 1975-2) Alkaline Phosphatase (test 112 IU/L 39-117 code = 6768-6) AST (SGOT) (test code = 21 IU/L 0-40 1920-8) ALT (SGPT) (test code = 31 IU/L 0-44 1742-6) [facility] Description: Comp. Metabolic Panel (142020-03-07 06:49:00 Test Item Value Reference Range Interpretation Comments Glucose (test code = 2345-7) 441 mg/dL 65-99 H BUN (test code = 3094-0) 52 mg/dL 6-24 H Creatinine (test code = 2.05 mg/dL 0.76-1.27 H 2160-0) eGFR If NonAfricn Am (test 38 mL/min/1.73 >59 L code = 54799-0) eGFR If Africn Am (test code = 44 mL/min/1.73 >59 L 01203-2) BUN/Creatinine Ratio (test 25 9-20 H code = 3097-3) Sodium (test code = 2951-2) 138 mmol/L 134-144 Potassium (test code = 2823-3) 5.4 mmol/L 3.5-5.2 H Chloride (test code = 2075-0) 96 mmol/L 96-106 Carbon Dioxide, Total (test 29 mmol/L -29 code = 2027-9) Calcium (test code = 73529-6) 9.2 mg/dL 8.7-10.2 Protein, Total (test code = 6.2 g/dL 6.0-8.5 2885-2) Albumin (test code = 1751-7) 3.4 g/dL 4.0-5.0 L Globulin, Total (test code = 2.8 g/dL 1.5-4.5 19909-8) A/G Ratio (test code = 1759-0) 1.2 1.2-2.2 Bilirubin, Total (test code = 0.5 mg/dL 0.0-1.2 1975-2) Alkaline Phosphatase (test 112 IU/L 39-117 code = 6768-6) AST (SGOT) (test code = 21 IU/L 0-40 1920-8) ALT (SGPT) (test code = 31 IU/L 0-44 1742-6) [facility] Description: Comp. Metabolic Panel (14)2020-03-07 06:49:00 Test Item Value Reference Range Interpretation Comments Glucose (test code = 2345-7) 441 mg/dL 65-99 H BUN (test code = 3094-0) 52 mg/dL 6-24 H Creatinine (test code = 2.05 mg/dL 0.76-1.27 H 2160-0) eGFR If NonAfricn Am (test 38 mL/min/1.73 >59 L code = 32396-4) eGFR If Africn Am (test code = 44 mL/min/1.73 >59 L 13534-3) BUN/Creatinine Ratio (test 25 9-20 H code = 3097-3) Sodium (test code = 2951-2) 138 mmol/L 134-144 Potassium (test code = 2823-3) 5.4 mmol/L 3.5-5.2 H Chloride (test code = 5-0) 96 mmol/L 96-106 Carbon Dioxide, Total (test 29 mmol/L -29 code = 8-9) Calcium (test code = 75448-4) 9.2 mg/dL 8.7-10.2 Protein, Total (test code = 6.2 g/dL 6.0-8.5 2885-2) Albumin (test code = 1751-7) 3.4 g/dL 4.0-5.0 L Globulin, Total (test code = 2.8 g/dL 1.5-4.5 14717-0) A/G Ratio (test code = 1759-0) 1.2 1.2-2.2 Bilirubin, Total (test code = 0.5 mg/dL 0.0-1.2 1975-2) Alkaline Phosphatase (test 112 IU/L 39-117 code = 6768-6) AST (SGOT) (test code = 21 IU/L 0-40 1920-8) ALT (SGPT) (test code = 31 IU/L 0-44 1742-6) [facility] Description: Comp. Metabolic Panel (14)2020-03-07 06:49:00 Test Item Value Reference Range Interpretation Comments Glucose (test code = 2345-7) 441 mg/dL 65-99 H BUN (test code = 3094-0) 52 mg/dL 6-24 H Creatinine (test code = 2.05 mg/dL 0.76-1.27 H 2160-0) eGFR If NonAfricn Am (test 38 mL/min/1.73 >59 L code = 84329-3) eGFR If Africn Am (test code = 44 mL/min/1.73 >59 L 67123-5) BUN/Creatinine Ratio (test 25 9-20 H code = 3097-3) Sodium (test code = 2951-2) 138 mmol/L 134-144 Potassium (test code = 2823-3) 5.4 mmol/L 3.5-5.2 H Chloride (test code = 2075-0) 96 mmol/L 96-106 Carbon Dioxide, Total (test 29 mmol/L 20-29 code = 8-9) Calcium (test code = 39478-2) 9.2 mg/dL 8.7-10.2 Protein, Total (test code = 6.2 g/dL 6.0-8.5 2885-2) Albumin (test code = 1751-7) 3.4 g/dL 4.0-5.0 L Globulin, Total (test code = 2.8 g/dL 1.5-4.5 77192-7) A/G Ratio (test code = 1759-0) 1.2 1.2-2.2 Bilirubin, Total (test code = 0.5 mg/dL 0.0-1.2 1974-2) Alkaline Phosphatase (test 112 IU/L 39-117 code = 6768-6) AST (SGOT) (test code = 21 IU/L 0-40 1920-8) ALT (SGPT) (test code = 31 IU/L 0-44 1742-6) [facility] Description: Comp. Metabolic Panel (14)2020-03-07 06:49:00 Test Item Value Reference Range Interpretation Comments Glucose (test code = 2345-7) 441 mg/dL 65-99 H BUN (test code = 3094-0) 52 mg/dL 6-24 H Creatinine (test code = 2.05 mg/dL 0.76-1.27 H 2160-0) eGFR If NonAfricn Am (test 38 mL/min/1.73 >59 L code = 48654-8) eGFR If Africn Am (test code = 44 mL/min/1.73 >59 L 31005-1) BUN/Creatinine Ratio (test 25 9-20 H code = 3097-3) Sodium (test code = 2951-2) 138 mmol/L 134-144 Potassium (test code = 2823-3) 5.4 mmol/L 3.5-5.2 H Chloride (test code = 2075-0) 96 mmol/L 96-106 Carbon Dioxide, Total (test 29 mmol/L 20-29 code = 8-9) Calcium (test code = 20722-0) 9.2 mg/dL 8.7-10.2 Protein, Total (test code = 6.2 g/dL 6.0-8.5 2885-2) Albumin (test code = 1751-7) 3.4 g/dL 4.0-5.0 L Globulin, Total (test code = 2.8 g/dL 1.5-4.5 16755-1) A/G Ratio (test code = 1759-0) 1.2 1.2-2.2 Bilirubin, Total (test code = 0.5 mg/dL 0.0-1.2 1974-04) Alkaline Phosphatase (test 112 IU/L 39-117 code = 6768-6) AST (SGOT) (test code = 21 IU/L 0-40 1920-8) ALT (SGPT) (test code = 31 IU/L 0-44 1742-6) [facility] Description: Comp. Metabolic Panel (14)2020-03-07 06:49:00 Test Item Value Reference Range Interpretation Comments Glucose (test code = 2345-7) 441 mg/dL 65-99 H BUN (test code = 3094-0) 52 mg/dL 6-24 H Creatinine (test code = 2.05 mg/dL 0.76-1.27 H 2160-0) eGFR If NonAfricn Am (test 38 mL/min/1.73 >59 L code = 18049-8) eGFR If Africn Am (test code = 44 mL/min/1.73 >59 L 16897-1) BUN/Creatinine Ratio (test 25 9-20 H code = 3097-3) Sodium (test code = 2951-2) 138 mmol/L 134-144 Potassium (test code = 2823-3) 5.4 mmol/L 3.5-5.2 H Chloride (test code = 2075-0) 96 mmol/L 96-106 Carbon Dioxide, Total (test 29 mmol/L 20-29 code = 2027-9) Calcium (test code = 36783-2) 9.2 mg/dL 8.7-10.2 Protein, Total (test code = 6.2 g/dL 6.0-8.5 2885-2) Albumin (test code = 1751-7) 3.4 g/dL 4.0-5.0 L Globulin, Total (test code = 2.8 g/dL 1.5-4.5 94693-9) A/G Ratio (test code = 1759-0) 1.2 1.2-2.2 Bilirubin, Total (test code = 0.5 mg/dL 0.0-1.2 1974-04) Alkaline Phosphatase (test 112 IU/L 39-117 code = 6768-6) AST (SGOT) (test code = 21 IU/L 0-40 0-8) ALT (SGPT) (test code = 31 IU/L 0-44 1742-6) [facility] Description: Comp. Metabolic Panel (14)2020-03-07 06:49:00 Test Item Value Reference Range Interpretation Comments Glucose (test code = 2345-7) 441 mg/dL 65-99 H BUN (test code = 3094-0) 52 mg/dL 6-24 H Creatinine (test code = 2.05 mg/dL 0.76-1.27 H 2160-0) eGFR If NonAfricn Am (test 38 mL/min/1.73 >59 L code = 59692-9) eGFR If Africn Am (test code = 44 mL/min/1.73 >59 L 26549-0) BUN/Creatinine Ratio (test 25 9-20 H code = 3097-3) Sodium (test code = 2951-2) 138 mmol/L 134-144 Potassium (test code = 2823-3) 5.4 mmol/L 3.5-5.2 H Chloride (test code = 2075-0) 96 mmol/L 96-106 Carbon Dioxide, Total (test 29 mmol/L 20-29 code = 2027-9) Calcium (test code = 37963-3) 9.2 mg/dL 8.7-10.2 Protein, Total (test code = 6.2 g/dL 6.0-8.5 2885-2) Albumin (test code = 1751-7) 3.4 g/dL 4.0-5.0 L Globulin, Total (test code = 2.8 g/dL 1.5-4.5 58107-0) A/G Ratio (test code = 1759-0) 1.2 1.2-2.2 Bilirubin, Total (test code = 0.5 mg/dL 0.0-1.2 1975-2) Alkaline Phosphatase (test 112 IU/L 39-117 code = 6768-6) AST (SGOT) (test code = 21 IU/L 0-40 1920-8) ALT (SGPT) (test code = 31 IU/L 0-44 1742-6) [facility] Description: Comp. Metabolic Panel (14)2020-03-07 06:49:00 Test Item Value Reference Range Interpretation Comments Glucose (test code = 2345-7) 441 mg/dL 65-99 H BUN (test code = 3094-0) 52 mg/dL 6-24 H Creatinine (test code = 2.05 mg/dL 0.76-1.27 H 2160-0) eGFR If NonAfricn Am (test 38 mL/min/1.73 >59 L code = 19034-8) eGFR If Africn Am (test code = 44 mL/min/1.73 >59 L 31635-9) BUN/Creatinine Ratio (test 25 9-20 H code = 3097-3) Sodium (test code = 2951-2) 138 mmol/L 134-144 Potassium (test code = 2823-3) 5.4 mmol/L 3.5-5.2 H Chloride (test code = 2075-0) 96 mmol/L 96-106 Carbon Dioxide, Total (test 29 mmol/L 20-29 code = 8-9) Calcium (test code = 36538-5) 9.2 mg/dL 8.7-10.2 Protein, Total (test code = 6.2 g/dL 6.0-8.5 2885-2) Albumin (test code = 1751-7) 3.4 g/dL 4.0-5.0 L Globulin, Total (test code = 2.8 g/dL 1.5-4.5 25644-4) A/G Ratio (test code = 1759-0) 1.2 1.2-2.2 Bilirubin, Total (test code = 0.5 mg/dL 0.0-1.2 1975-2) Alkaline Phosphatase (test 112 IU/L 39-117 code = 6768-6) AST (SGOT) (test code = 21 IU/L 0-40 1920-8) ALT (SGPT) (test code = 31 IU/L 0-44 1742-6) [facility] Description: Comp. Metabolic Panel (142020-03-07 06:49:00 Test Item Value Reference Range Interpretation Comments Glucose (test code = 2345-7) 441 mg/dL 65-99 H BUN (test code = 3094-0) 52 mg/dL 6-24 H Creatinine (test code = 2.05 mg/dL 0.76-1.27 H 2160-0) eGFR If NonAfricn Am (test 38 mL/min/1.73 >59 L code = 56341-1) eGFR If Africn Am (test code = 44 mL/min/1.73 >59 L 24788-1) BUN/Creatinine Ratio (test 25 9-20 H code = 3097-3) Sodium (test code = 2951-2) 138 mmol/L 134-144 Potassium (test code = 2823-3) 5.4 mmol/L 3.5-5.2 H Chloride (test code = 2075-0) 96 mmol/L 96-106 Carbon Dioxide, Total (test 29 mmol/L 20-29 code = 8-9) Calcium (test code = 16588-0) 9.2 mg/dL 8.7-10.2 Protein, Total (test code = 6.2 g/dL 6.0-8.5 2885-2) Albumin (test code = 1751-7) 3.4 g/dL 4.0-5.0 L Globulin, Total (test code = 2.8 g/dL 1.5-4.5 47214-8) A/G Ratio (test code = 1759-0) 1.2 1.2-2.2 Bilirubin, Total (test code = 0.5 mg/dL 0.0-1.2 1975-2) Alkaline Phosphatase (test 112 IU/L 39-117 code = 6768-6) AST (SGOT) (test code = 21 IU/L 0-40 1920-8) ALT (SGPT) (test code = 31 IU/L 0-44 1742-6) [facility] Description: Comp. Metabolic Panel (142020-03-07 06:49:00 Test Item Value Reference Range Interpretation Comments Glucose (test code = 2345-7) 441 mg/dL 65-99 H BUN (test code = 3094-0) 52 mg/dL 6-24 H Creatinine (test code = 2.05 mg/dL 0.76-1.27 H 2160-0) eGFR If NonAfricn Am (test 38 mL/min/1.73 >59 L code = 50204-2) eGFR If Africn Am (test code = 44 mL/min/1.73 >59 L 14069-9) BUN/Creatinine Ratio (test 25 9-20 H code = 3097-3) Sodium (test code = 2951-2) 138 mmol/L 134-144 Potassium (test code = 2823-3) 5.4 mmol/L 3.5-5.2 H Chloride (test code = 2075-0) 96 mmol/L 96-106 Carbon Dioxide, Total (test 29 mmol/L 20-29 code = 2027-9) Calcium (test code = 13871-9) 9.2 mg/dL 8.7-10.2 Protein, Total (test code = 6.2 g/dL 6.0-8.5 2885-2) Albumin (test code = 1751-7) 3.4 g/dL 4.0-5.0 L Globulin, Total (test code = 2.8 g/dL 1.5-4.5 82641-2) A/G Ratio (test code = 1759-0) 1.2 1.2-2.2 Bilirubin, Total (test code = 0.5 mg/dL 0.0-1.2 1975-2) Alkaline Phosphatase (test 112 IU/L 39-117 code = 6768-6) AST (SGOT) (test code = 21 IU/L 0-40 1920-8) ALT (SGPT) (test code = 31 IU/L 0-44 1742-6) [facility] Description: Comp. Metabolic Panel (14)2020-03-07 06:49:00 Test Item Value Reference Range Interpretation Comments Glucose (test code = 2345-7) 441 mg/dL 65-99 H BUN (test code = 3094-0) 52 mg/dL 6-24 H Creatinine (test code = 2.05 mg/dL 0.76-1.27 H 2160-0) eGFR If NonAfricn Am (test 38 mL/min/1.73 >59 L code = 33907-7) eGFR If Africn Am (test code = 44 mL/min/1.73 >59 L 48842-0) BUN/Creatinine Ratio (test 25 9-20 H code = 3097-3) Sodium (test code = 2951-2) 138 mmol/L 134-144 Potassium (test code = 2823-3) 5.4 mmol/L 3.5-5.2 H Chloride (test code = 2075-0) 96 mmol/L 96-106 Carbon Dioxide, Total (test 29 mmol/L -29 code = 2027-9) Calcium (test code = 14989-5) 9.2 mg/dL 8.7-10.2 Protein, Total (test code = 6.2 g/dL 6.0-8.5 2885-2) Albumin (test code = 1751-7) 3.4 g/dL 4.0-5.0 L Globulin, Total (test code = 2.8 g/dL 1.5-4.5 37893-1) A/G Ratio (test code = 1759-0) 1.2 1.2-2.2 Bilirubin, Total (test code = 0.5 mg/dL 0.0-1.2 1975-2) Alkaline Phosphatase (test 112 IU/L 39-117 code = 6768-6) AST (SGOT) (test code = 21 IU/L 0-40 1920-8) ALT (SGPT) (test code = 31 IU/L 0-44 1742-6) [facility] Description: Comp. Metabolic Panel (142020-03-07 06:49:00 Test Item Value Reference Range Interpretation Comments Glucose (test code = 2345-7) 441 mg/dL 65-99 H BUN (test code = 3094-0) 52 mg/dL 6-24 H Creatinine (test code = 2.05 mg/dL 0.76-1.27 H 2160-0) eGFR If NonAfricn Am (test 38 mL/min/1.73 >59 L code = 80754-7) eGFR If Africn Am (test code = 44 mL/min/1.73 >59 L 84761-2) BUN/Creatinine Ratio (test 25 9-20 H code = 3097-3) Sodium (test code = 2951-2) 138 mmol/L 134-144 Potassium (test code = 2823-3) 5.4 mmol/L 3.5-5.2 H Chloride (test code = 2075-0) 96 mmol/L 96-106 Carbon Dioxide, Total (test 29 mmol/L -29 code = 2027-9) Calcium (test code = 88234-3) 9.2 mg/dL 8.7-10.2 Protein, Total (test code = 6.2 g/dL 6.0-8.5 2885-2) Albumin (test code = 1751-7) 3.4 g/dL 4.0-5.0 L Globulin, Total (test code = 2.8 g/dL 1.5-4.5 35360-8) A/G Ratio (test code = 1759-0) 1.2 1.2-2.2 Bilirubin, Total (test code = 0.5 mg/dL 0.0-1.2 1975-2) Alkaline Phosphatase (test 112 IU/L 39-117 code = 6768-6) AST (SGOT) (test code = 21 IU/L 0-40 1920-8) ALT (SGPT) (test code = 31 IU/L 0-44 1742-6) [facility] Description: Comp. Metabolic Panel (14)2020-03-07 06:49:00 Test Item Value Reference Range Interpretation Comments Glucose (test code = 2345-7) 441 mg/dL 65-99 H BUN (test code = 3094-0) 52 mg/dL 6-24 H Creatinine (test code = 2.05 mg/dL 0.76-1.27 H 2160-0) eGFR If NonAfricn Am (test 38 mL/min/1.73 >59 L code = 72509-7) eGFR If Africn Am (test code = 44 mL/min/1.73 >59 L 06352-0) BUN/Creatinine Ratio (test 25 9-20 H code = 3097-3) Sodium (test code = 2951-2) 138 mmol/L 134-144 Potassium (test code = 2823-3) 5.4 mmol/L 3.5-5.2 H Chloride (test code = 2075-0) 96 mmol/L 96-106 Carbon Dioxide, Total (test 29 mmol/L 20-29 code = 8-9) Calcium (test code = 43510-4) 9.2 mg/dL 8.7-10.2 Protein, Total (test code = 6.2 g/dL 6.0-8.5 2885-2) Albumin (test code = 1751-7) 3.4 g/dL 4.0-5.0 L Globulin, Total (test code = 2.8 g/dL 1.5-4.5 10303-0) A/G Ratio (test code = 1759-0) 1.2 1.2-2.2 Bilirubin, Total (test code = 0.5 mg/dL 0.0-1.2 1974-) Alkaline Phosphatase (test 112 IU/L 39-117 code = 6768-6) AST (SGOT) (test code = 21 IU/L 0-40 1920-8) ALT (SGPT) (test code = 31 IU/L 0-44 1742-6) [facility] Description: Comp. Metabolic Panel ()2020-03-07 06:49:00 Test Item Value Reference Range Interpretation Comments Glucose (test code = 2345-7) 441 mg/dL 65-99 H BUN (test code = 3094-0) 52 mg/dL 6-24 H Creatinine (test code = 2.05 mg/dL 0.76-1.27 H 2160-0) eGFR If NonAfricn Am (test 38 mL/min/1.73 >59 L code = 38430-4) eGFR If Africn Am (test code = 44 mL/min/1.73 >59 L 58943-6) BUN/Creatinine Ratio (test 25 9-20 H code = 3097-3) Sodium (test code = 2951-2) 138 mmol/L 134-144 Potassium (test code = 2823-3) 5.4 mmol/L 3.5-5.2 H Chloride (test code = 2075-0) 96 mmol/L 96-106 Carbon Dioxide, Total (test 29 mmol/L 20-29 code = 8-9) Calcium (test code = 64914-1) 9.2 mg/dL 8.7-10.2 Protein, Total (test code = 6.2 g/dL 6.0-8.5 2885-2) Albumin (test code = 1751-7) 3.4 g/dL 4.0-5.0 L Globulin, Total (test code = 2.8 g/dL 1.5-4.5 76238-0) A/G Ratio (test code = 1759-0) 1.2 1.2-2.2 Bilirubin, Total (test code = 0.5 mg/dL 0.0-1.2 1974-) Alkaline Phosphatase (test 112 IU/L 39-117 code = 6768-6) AST (SGOT) (test code = 21 IU/L 0-40 1920-8) ALT (SGPT) (test code = 31 IU/L 0-44 1742-6) [facility] Description: Comp. Metabolic Panel (2020-03-07 06:49:00 Test Item Value Reference Range Interpretation Comments Glucose (test code = 2345-7) 441 mg/dL 65-99 H BUN (test code = 3094-0) 52 mg/dL 6-24 H Creatinine (test code = 2.05 mg/dL 0.76-1.27 H 2160-0) eGFR If NonAfricn Am (test 38 mL/min/1.73 >59 L code = 33701-5) eGFR If Africn Am (test code = 44 mL/min/1.73 >59 L 48778-3) BUN/Creatinine Ratio (test 25 9-20 H code = 3097-3) Sodium (test code = 2951-2) 138 mmol/L 134-144 Potassium (test code = 2823-3) 5.4 mmol/L 3.5-5.2 H Chloride (test code = 2075-0) 96 mmol/L 96-106 Carbon Dioxide, Total (test 29 mmol/L 20-29 code = 8-9) Calcium (test code = 68809-4) 9.2 mg/dL 8.7-10.2 Protein, Total (test code = 6.2 g/dL 6.0-8.5 2885-2) Albumin (test code = 1751-7) 3.4 g/dL 4.0-5.0 L Globulin, Total (test code = 2.8 g/dL 1.5-4.5 13216-0) A/G Ratio (test code = 1759-0) 1.2 1.2-2.2 Bilirubin, Total (test code = 0.5 mg/dL 0.0-1.2 1975-2) Alkaline Phosphatase (test 112 IU/L 39-117 code = 6768-6) AST (SGOT) (test code = 21 IU/L 0-40 1920-8) ALT (SGPT) (test code = 31 IU/L 0-44 1742-6) [facility] Description: Comp. Metabolic Panel (14)2020-03-07 06:49:00 Test Item Value Reference Range Interpretation Comments Glucose (test code = 2345-7) 441 mg/dL 65-99 H BUN (test code = 3094-0) 52 mg/dL 6-24 H Creatinine (test code = 2.05 mg/dL 0.76-1.27 H 2160-0) eGFR If NonAfricn Am (test 38 mL/min/1.73 >59 L code = 19912-8) eGFR If Africn Am (test code = 44 mL/min/1.73 >59 L 76848-8) BUN/Creatinine Ratio (test 25 9-20 H code = 3097-3) Sodium (test code = 2951-2) 138 mmol/L 134-144 Potassium (test code = 2823-3) 5.4 mmol/L 3.5-5.2 H Chloride (test code = 2075-0) 96 mmol/L 96-106 Carbon Dioxide, Total (test 29 mmol/L 20-29 code = 8-9) Calcium (test code = 02453-6) 9.2 mg/dL 8.7-10.2 Protein, Total (test code = 6.2 g/dL 6.0-8.5 2885-2) Albumin (test code = 1751-7) 3.4 g/dL 4.0-5.0 L Globulin, Total (test code = 2.8 g/dL 1.5-4.5 46528-6) A/G Ratio (test code = 1759-0) 1.2 1.2-2.2 Bilirubin, Total (test code = 0.5 mg/dL 0.0-1.2 1975-2) Alkaline Phosphatase (test 112 IU/L 39-117 code = 6768-6) AST (SGOT) (test code = 21 IU/L 0-40 1920-8) ALT (SGPT) (test code = 31 IU/L 0-44 1742-6) [facility]/[id number] 07:17:11Tyshawn Serra MD 2019 7:47 AMIncision/DrainageDate/Time: 2019 [...] NoneType of anesthesia: NoneGrafts or Implan ts: [facility] Description: Hemoglobin A1c/Hemoglobin.total in [id number] 16:33:00 Test Item Value Reference Range Interpretation Comments Hemoglobin A1c (test code 13.0 % 4.8-5.6 H = 4548-4) . Prediabetes: 5. 7 - 6.4 Diabete s: >6.4 Glycemi c control for niall lts with diabetes: <7.0

P erforme d by:
[facility] ([place])

[facility] Description: Hemoglobin A1c/Hemoglobin.total in Blood 2019-11-10 16:33:00 Test Item Value Reference Range Interpretation Comments Hemoglobin A1c (test code 13.0 % 4.8-5.6 H = 4548-4) . Prediabetes: 5. 7 - 6.4 Diabete s: >6.4 Glycemi c control for niall lts with diabetes: <7.0

P erforme d by:
[facility] ([place])

[facility] Description: Hemoglobin A1c/Hemoglobin.total in Blood 2019-11-10 16:33:00 Test Item Value Reference Range Interpretation Comments Hemoglobin A1c (test code 13.0 % 4.8-5.6 H = 4548-4) . Prediabetes: 5. 7 - 6.4 Diabete s: >6.4 Glycemi c control for niall lts with diabetes: <7.0

P erforme d by:
[facility] [place] ([place])

[facility] Description: Hemoglobin A1c/Hemoglobin.total in Blood 2019-11-10 16:33:00 Test Item Value Reference Range Interpretation Comments Hemoglobin A1c (test code 13.0 % 4.8-5.6 H = 4548-4) . Prediabetes: 5. 7 - 6.4 Diabete s: >6.4 Glycemi c control for niall lts with diabetes: <7.0

P erforme d by:
[facility] ([place])

[facility] Description: Hemoglobin A1c/Hemoglobin.total in Blood 2019-11-10 16:33:00 Test Item Value Reference Range Interpretation Comments Hemoglobin A1c (test code 13.0 % 4.8-5.6 H = 4548-4) . Prediabetes: 5. 7 - 6.4 Diabete s: >6.4 Glycemi c control for niall lts with diabetes: <7.0

P erforme d by:
[facility] ([place])

[facility] Description: Hemoglobin A1c/Hemoglobin.total in Blood 2019-11-10 16:33:00 Test Item Value Reference Range Interpretation Comments Hemoglobin A1c (test code 13.0 % 4.8-5.6 H = 4548-4) . Prediabetes: 5. 7 - 6.4 Diabete s: >6.4 Glycemi c control for niall lts with diabetes: <7.0

P erforme d by:
[facility] [place] ([place])

[facility] Description: Hemoglobin A1c/Hemoglobin.total in Blood 2019-11-10 16:33:00 Test Item Value Reference Range Interpretation Comments Hemoglobin A1c (test code 13.0 % 4.8-5.6 H = 4548-4) . Prediabetes: 5. 7 - 6.4 Diabete s: >6.4 Glycemi c control for niall lts with diabetes: <7.0

P erforme d by:
[facility] [place] ([place])

[facility] Description: Hemoglobin A1c/Hemoglobin.total in Blood 2019-11-10 16:33:00 Test Item Value Reference Range Interpretation Comments Hemoglobin A1c (test code 13.0 % 4.8-5.6 H = 4548-4) . Prediabetes: 5. 7 - 6.4 Diabete s: >6.4 Glycemi c control for niall lts with diabetes: <7.0

P erforme d by:
[facility] ([place])

[facility] Description: Hemoglobin A1c/Hemoglobin.total in Blood 2019-11-10 16:33:00 Test Item Value Reference Range Interpretation Comments Hemoglobin A1c (test code 13.0 % 4.8-5.6 H = 4548-4) . Prediabetes: 5. 7 - 6.4 Diabete s: >6.4 Glycemi c control for niall lts with diabetes: <7.0

P erforme d by:
[facility] ([place])

[facility] Description: Hemoglobin A1c/Hemoglobin.total in Blood 2019-11-10 16:33:00 Test Item Value Reference Range Interpretation Comments Hemoglobin A1c (test code 13.0 % 4.8-5.6 H = 4548-4) . Prediabetes: 5. 7 - 6.4 Diabete s: >6.4 Glycemi c control for niall lts with diabetes: <7.0

P erforme d by:
[facility] [place] ([place])

[facility] Description: Hemoglobin A1c/Hemoglobin.total in Blood 2019-11-10 16:33:00 Test Item Value Reference Range Interpretation Comments Hemoglobin A1c (test code 13.0 % 4.8-5.6 H = 4548-4) . Prediabetes: 5. 7 - 6.4 Diabete s: >6.4 Glycemi c control for niall lts with diabetes: <7.0

P erforme d by:
[facility] [place] ([place])

[facility] Description: Hemoglobin A1c/Hemoglobin.total in Blood 2019-11-10 16:33:00 Test Item Value Reference Range Interpretation Comments Hemoglobin A1c (test code 13.0 % 4.8-5.6 H = 4548-4) . Prediabetes: 5. 7 - 6.4 Diabete s: >6.4 Glycemi c control for niall lts with diabetes: <7.0

P erforme d by:
[facility] ([place])

[facility] Description: Hemoglobin A1c/Hemoglobin.total in Blood 2019-11-10 16:33:00 Test Item Value Reference Range Interpretation Comments Hemoglobin A1c (test code 13.0 % 4.8-5.6 H = 4548-4) . Prediabetes: 5. 7 - 6.4 Diabete s: >6.4 Glycemi c control for niall lts with diabetes: <7.0

P erforme d by:
[facility] ([place])

[facility] Description: Hemoglobin A1c/Hemoglobin.total in Blood 2019-11-10 16:33:00 Test Item Value Reference Range Interpretation Comments Hemoglobin A1c (test code 13.0 % 4.8-5.6 H = 4548-4) . Prediabetes: 5. 7 - 6.4 Diabete s: >6.4 Glycemi c control for niall lts with diabetes: <7.0

P erforme d by:
[facility] [place] ([place])

[facility] Description: Hemoglobin A1c/Hemoglobin.total in Blood 2019-11-10 16:33:00 Test Item Value Reference Range Interpretation Comments Hemoglobin A1c (test code 13.0 % 4.8-5.6 H = 4548-4) . Prediabetes: 5. 7 - 6.4 Diabete s: >6.4 Glycemi c control for niall lts with diabetes: <7.0

P erforme d by:
[facility] [place] ([place])

[facility] Description: Hemoglobin A1c/Hemoglobin.total in Blood 2019-11-10 16:33:00 Test Item Value Reference Range Interpretation Comments Hemoglobin A1c (test code 13.0 % 4.8-5.6 H = 4548-4) . Prediabetes: 5. 7 - 6.4 Diabete s: >6.4 Glycemi c control for niall lts with diabetes: <7.0

P erforme d by:
[facility] ([place])

[facility] Description: Hemoglobin A1c/Hemoglobin.total in Blood 2019-11-10 16:33:00 Test Item Value Reference Range Interpretation Comments Hemoglobin A1c (test code 13.0 % 4.8-5.6 H = 4548-4) . Prediabetes: 5. 7 - 6.4 Diabete s: >6.4 Glycemi c control for niall lts with diabetes: <7.0

P erforme d by:
[facility] ([place])

[facility] Description: Hemoglobin A1c/Hemoglobin.total in Blood 2019-11-10 16:33:00 Test Item Value Reference Range Interpretation Comments Hemoglobin A1c (test code 13.0 % 4.8-5.6 H = 4548-4) . Prediabetes: 5. 7 - 6.4 Diabete s: >6.4 Glycemi c control for niall lts with diabetes: <7.0

P erforme d by:
[facility] [place] ([place])

[facility] Description: Comp. Metabolic Panel (14)2019-11-10 03:19:00 Test Item Value Reference Range Interpretation Comments Glucose (test code = 2345-7) 439 mg/dL 65-99 H BUN (test code = 3094-0) 49 mg/dL 6-24 H Creatinine (test code = 2.17 mg/dL 0.76-1.27 H 2160-0) eGFR If NonAfricn Am (test 35 mL/min/1.73 >59 L code = 96918-2) eGFR If Africn Am (test code = 41 mL/min/1.73 >59 L 68345-4) BUN/Creatinine Ratio (test 23 9-20 H code = 3097-3) Sodium (test code = 2951-2) 137 mmol/L 134-144 Potassium (test code = 2823-3) 4.9 mmol/L 3.5-5.2 Chloride (test code = 2075-0) 93 mmol/L 96-106 L Carbon Dioxide, Total (test 29 mmol/L 20-29 code = 8-9) Calcium (test code = 79609-5) 9.5 mg/dL 8.7-10.2 Protein, Total (test code = 6.5 g/dL 6.0-8.5 2885-2) Albumin (test code = 1751-7) 3.6 g/dL 4.0-5.0 L Globulin, Total (test code = 2.9 g/dL 1.5-4.5 12798-0) A/G Ratio (test code = 1759-0) 1.2 1.2-2.2 Bilirubin, Total (test code = 0.5 mg/dL 0.0-1.2 1974-2) Alkaline Phosphatase (test 103 IU/L 39-117 code = 6768-6) AST (SGOT) (test code = 20 IU/L 0-40 1920-8) ALT (SGPT) (test code = 30 IU/L 0-44 1742-6) [facility] Description: Lipid [id number] 03:19:00 Test Item Value Reference Range Interpretation Comments Cholesterol, Total (test code = 231 mg/dL 100-199 H 2092-3) Triglycerides (test code = 2571-8) 215 mg/dL 0-149 H HDL Cholesterol (test code = 34 mg/dL >39 L 2084-9) VLDL Cholesterol Renuka (test code = 43 mg/dL 5-40 H 07397-2) LDL Cholesterol Calc (test code = 154 mg/dL 0-99 H 29074-1) Comment: (test code = 39397-5) [employer] Description: Comp. Metabolic Panel (14)2019-11-10 03:19:00 Test Item Value Reference Range Interpretation Comments Glucose (test code = 2345-7) 439 mg/dL 65-99 H BUN (test code = 3094-0) 49 mg/dL 6-24 H Creatinine (test code = 2.17 mg/dL 0.76-1.27 H 2160-0) eGFR If NonAfricn Am (test 35 mL/min/1.73 >59 L code = 00851-0) eGFR If Africn Am (test code = 41 mL/min/1.73 >59 L 14845-4) BUN/Creatinine Ratio (test 23 9-20 H code = 3097-3) Sodium (test code = 2951-2) 137 mmol/L 134-144 Potassium (test code = 2823-3) 4.9 mmol/L 3.5-5.2 Chloride (test code = 2075-0) 93 mmol/L 96-106 L Carbon Dioxide, Total (test 29 mmol/L 20-29 code = 2028-9) Calcium (test code = 31782-4) 9.5 mg/dL 8.7-10.2 Protein, Total (test code = 6.5 g/dL 6.0-8.5 2885-2) Albumin (test code = 1751-7) 3.6 g/dL 4.0-5.0 L Globulin, Total (test code = 2.9 g/dL 1.5-4.5 67510-4) A/G Ratio (test code = 1759-0) 1.2 1.2-2.2 Bilirubin, Total (test code = 0.5 mg/dL 0.0-1.2 1975-2) Alkaline Phosphatase (test 103 IU/L 39-117 code = 6768-6) AST (SGOT) (test code = 20 IU/L 0-40 1920-8) ALT (SGPT) (test code = 30 IU/L 0-44 1742-6) [facility] Description: Lipid [id number] 03:19:00 Test Item Value Reference Range Interpretation Comments Cholesterol, Total (test code = 231 mg/dL 100-199 H 2092-3) Triglycerides (test code = 2571-8) 215 mg/dL 0-149 H HDL Cholesterol (test code = 34 mg/dL >39 L 2084-9) VLDL Cholesterol Renuka (test code = 43 mg/dL 5-40 H 64855-2) LDL Cholesterol Calc (test code = 154 mg/dL 0-99 H 27861-3) Comment: (test code = 45734-2) [facility] Description: Comp. Metabolic Panel (14)2019-11-10 03:19:00 Test Item Value Reference Range Interpretation Comments Glucose (test code = 2345-7) 439 mg/dL 65-99 H BUN (test code = 3094-0) 49 mg/dL 6-24 H Creatinine (test code = 2.17 mg/dL 0.76-1.27 H 2160-0) eGFR If NonAfricn Am (test 35 mL/min/1.73 >59 L code = 70265-2) eGFR If Africn Am (test code = 41 mL/min/1.73 >59 L 09149-1) BUN/Creatinine Ratio (test 23 9-20 H code = 3097-3) Sodium (test code = 2951-2) 137 mmol/L 134-144 Potassium (test code = 2823-3) 4.9 mmol/L 3.5-5.2 Chloride (test code = 2075-0) 93 mmol/L 96-106 L Carbon Dioxide, Total (test 29 mmol/L 20-29 code = 2027-9) Calcium (test code = 33617-4) 9.5 mg/dL 8.7-10.2 Protein, Total (test code = 6.5 g/dL 6.0-8.5 2885-2) Albumin (test code = 1751-7) 3.6 g/dL 4.0-5.0 L Globulin, Total (test code = 2.9 g/dL 1.5-4.5 32769-1) A/G Ratio (test code = 1759-0) 1.2 1.2-2.2 Bilirubin, Total (test code = 0.5 mg/dL 0.0-1.2 1974-2) Alkaline Phosphatase (test 103 IU/L 39-117 code = 6768-6) AST (SGOT) (test code = 20 IU/L 0-40 1920-8) ALT (SGPT) (test code = 30 IU/L 0-44 1742-6) [employer] Description: Lipid [id number] 03:19:00 Test Item Value Reference Range Interpretation Comments Cholesterol, Total (test code = 231 mg/dL 100-199 H 2092-3) Triglycerides (test code = 2571-8) 215 mg/dL 0-149 H HDL Cholesterol (test code = 34 mg/dL >39 L 2084-9) VLDL Cholesterol Renuka (test code = 43 mg/dL 5-40 H 03744-1) LDL Cholesterol Calc (test code = 154 mg/dL 0-99 H 08642-6) Comment: (test code = 60727-4) [employer] Description: Comp. Metabolic Panel (14)2019-11-10 03:19:00 Test Item Value Reference Range Interpretation Comments Glucose (test code = 2345-7) 439 mg/dL 65-99 H BUN (test code = 3094-0) 49 mg/dL 6-24 H Creatinine (test code = 2.17 mg/dL 0.76-1.27 H 2160-0) eGFR If NonAfricn Am (test 35 mL/min/1.73 >59 L code = 85411-2) eGFR If Africn Am (test code = 41 mL/min/1.73 >59 L 32961-0) BUN/Creatinine Ratio (test 23 9-20 H code = 3097-3) Sodium (test code = 2951-2) 137 mmol/L 134-144 Potassium (test code = 2823-3) 4.9 mmol/L 3.5-5.2 Chloride (test code = 2075-0) 93 mmol/L 96-106 L Carbon Dioxide, Total (test 29 mmol/L 20-29 code = 8-9) Calcium (test code = 54970-4) 9.5 mg/dL 8.7-10.2 Protein, Total (test code = 6.5 g/dL 6.0-8.5 2885-2) Albumin (test code = 1751-7) 3.6 g/dL 4.0-5.0 L Globulin, Total (test code = 2.9 g/dL 1.5-4.5 15419-9) A/G Ratio (test code = 1759-0) 1.2 1.2-2.2 Bilirubin, Total (test code = 0.5 mg/dL 0.0-1.2 1974-2) Alkaline Phosphatase (test 103 IU/L 39-117 code = 6768-6) AST (SGOT) (test code = 20 IU/L 0-40 1920-8) ALT (SGPT) (test code = 30 IU/L 0-44 1742-6) [employer] Description: Lipid [id number] 03:19:00 Test Item Value Reference Range Interpretation Comments Cholesterol, Total (test code = 231 mg/dL 100-199 H 2092-3) Triglycerides (test code = 2571-8) 215 mg/dL 0-149 H HDL Cholesterol (test code = 34 mg/dL >39 L 2084-9) VLDL Cholesterol Renuka (test code = 43 mg/dL 5-40 H 89072-7) LDL Cholesterol Calc (test code = 154 mg/dL 0-99 H 29045-0) Comment: (test code = 76854-7) [employer] Description: Comp. Metabolic Panel ()2019-11-10 03:19:00 Test Item Value Reference Range Interpretation Comments Glucose (test code = 2345-7) 439 mg/dL 65-99 H BUN (test code = 3094-0) 49 mg/dL 6-24 H Creatinine (test code = 2.17 mg/dL 0.76-1.27 H 2160-0) eGFR If NonAfricn Am (test 35 mL/min/1.73 >59 L code = 55075-1) eGFR If Africn Am (test code = 41 mL/min/1.73 >59 L 18652-2) BUN/Creatinine Ratio (test 23 9-20 H code = 3097-3) Sodium (test code = 2951-2) 137 mmol/L 134-144 Potassium (test code = 2823-3) 4.9 mmol/L 3.5-5.2 Chloride (test code = 2075-0) 93 mmol/L 96-106 L Carbon Dioxide, Total (test 29 mmol/L 20-29 code = 2027-9) Calcium (test code = 35030-5) 9.5 mg/dL 8.7-10.2 Protein, Total (test code = 6.5 g/dL 6.0-8.5 2885-2) Albumin (test code = 1751-7) 3.6 g/dL 4.0-5.0 L Globulin, Total (test code = 2.9 g/dL 1.5-4.5 66872-1) A/G Ratio (test code = 1759-0) 1.2 1.2-2.2 Bilirubin, Total (test code = 0.5 mg/dL 0.0-1.2 1974-2) Alkaline Phosphatase (test 103 IU/L 39-117 code = 6768-6) AST (SGOT) (test code = 20 IU/L 0-40 1920-8) ALT (SGPT) (test code = 30 IU/L 0-44 1742-6) [facility] Description: Lipid [id number] 03:19:00 Test Item Value Reference Range Interpretation Comments Cholesterol, Total (test code = 231 mg/dL 100-199 H 3-3) Triglycerides (test code = 2571-8) 215 mg/dL 0-149 H HDL Cholesterol (test code = 34 mg/dL >39 L 2084-9) VLDL Cholesterol Renuka (test code = 43 mg/dL 5-40 H 34149-0) LDL Cholesterol Calc (test code = 154 mg/dL 0-99 H 61117-0) Comment: (test code = 47681-4) [facility] Description: Comp. Metabolic Panel (14)2019-11-10 03:19:00 Test Item Value Reference Range Interpretation Comments Glucose (test code = 2345-7) 439 mg/dL 65-99 H BUN (test code = 3094-0) 49 mg/dL 6-24 H Creatinine (test code = 2.17 mg/dL 0.76-1.27 H 2160-0) eGFR If NonAfricn Am (test 35 mL/min/1.73 >59 L code = 26636-8) eGFR If Africn Am (test code = 41 mL/min/1.73 >59 L 47813-1) BUN/Creatinine Ratio (test 23 9-20 H code = 3097-3) Sodium (test code = 2951-2) 137 mmol/L 134-144 Potassium (test code = 2823-3) 4.9 mmol/L 3.5-5.2 Chloride (test code = 2075-0) 93 mmol/L 96-106 L Carbon Dioxide, Total (test 29 mmol/L 20-29 code = 2028-9) Calcium (test code = 95977-6) 9.5 mg/dL 8.7-10.2 Protein, Total (test code = 6.5 g/dL 6.0-8.5 2885-2) Albumin (test code = 1751-7) 3.6 g/dL 4.0-5.0 L Globulin, Total (test code = 2.9 g/dL 1.5-4.5 62454-0) A/G Ratio (test code = 1759-0) 1.2 1.2-2.2 Bilirubin, Total (test code = 0.5 mg/dL 0.0-1.2 1974-2) Alkaline Phosphatase (test 103 IU/L 39-117 code = 6768-6) AST (SGOT) (test code = 20 IU/L 0-40 1920-8) ALT (SGPT) (test code = 30 IU/L 0-44 1742-6) [employer] Description: Lipid [id number] 03:19:00 Test Item Value Reference Range Interpretation Comments Cholesterol, Total (test code = 231 mg/dL 100-199 H 2092-3) Triglycerides (test code = 2571-8) 215 mg/dL 0-149 H HDL Cholesterol (test code = 34 mg/dL >39 L 2084-9) VLDL Cholesterol Renuka (test code = 43 mg/dL 5-40 H 62601-7) LDL Cholesterol Calc (test code = 154 mg/dL 0-99 H 47478-9) Comment: (test code = 94446-9) [employer] Description: Comp. Metabolic Panel ()2019-11-10 03:19:00 Test Item Value Reference Range Interpretation Comments Glucose (test code = 2345-7) 439 mg/dL 65-99 H BUN (test code = 3094-0) 49 mg/dL 6-24 H Creatinine (test code = 2.17 mg/dL 0.76-1.27 H 2160-0) eGFR If NonAfricn Am (test 35 mL/min/1.73 >59 L code = 84043-4) eGFR If Africn Am (test code = 41 mL/min/1.73 >59 L 09739-7) BUN/Creatinine Ratio (test 23 9-20 H code = 3097-3) Sodium (test code = 2951-2) 137 mmol/L 134-144 Potassium (test code = 2823-3) 4.9 mmol/L 3.5-5.2 Chloride (test code = 2075-0) 93 mmol/L 96-106 L Carbon Dioxide, Total (test 29 mmol/L 20-29 code = 8-9) Calcium (test code = 83292-6) 9.5 mg/dL 8.7-10.2 Protein, Total (test code = 6.5 g/dL 6.0-8.5 2885-2) Albumin (test code = 1751-7) 3.6 g/dL 4.0-5.0 L Globulin, Total (test code = 2.9 g/dL 1.5-4.5 13752-0) A/G Ratio (test code = 1759-0) 1.2 1.2-2.2 Bilirubin, Total (test code = 0.5 mg/dL 0.0-1.2 1975-2) Alkaline Phosphatase (test 103 IU/L 39-117 code = 6768-6) AST (SGOT) (test code = 20 IU/L 0-40 1920-8) ALT (SGPT) (test code = 30 IU/L 0-44 1742-6) [employer] Description: Lipid [id number] 03:19:00 Test Item Value Reference Range Interpretation Comments Cholesterol, Total (test code = 231 mg/dL 100-199 H 2092-3) Triglycerides (test code = 2571-8) 215 mg/dL 0-149 H HDL Cholesterol (test code = 34 mg/dL >39 L 2084-9) VLDL Cholesterol Renuka (test code = 43 mg/dL 5-40 H 70788-5) LDL Cholesterol Calc (test code = 154 mg/dL 0-99 H 87958-4) Comment: (test code = 72395-6) [employer] Description: Comp. Metabolic Panel ()2019-11-10 03:19:00 Test Item Value Reference Range Interpretation Comments Glucose (test code = 2345-7) 439 mg/dL 65-99 H BUN (test code = 3094-0) 49 mg/dL 6-24 H Creatinine (test code = 2.17 mg/dL 0.76-1.27 H 2160-0) eGFR If NonAfricn Am (test 35 mL/min/1.73 >59 L code = 52324-0) eGFR If Africn Am (test code = 41 mL/min/1.73 >59 L 90210-9) BUN/Creatinine Ratio (test 23 9-20 H code = 3097-3) Sodium (test code = 2951-2) 137 mmol/L 134-144 Potassium (test code = 2823-3) 4.9 mmol/L 3.5-5.2 Chloride (test code = 2075-0) 93 mmol/L 96-106 L Carbon Dioxide, Total (test 29 mmol/L 20-29 code = 8-9) Calcium (test code = 11311-3) 9.5 mg/dL 8.7-10.2 Protein, Total (test code = 6.5 g/dL 6.0-8.5 2885-2) Albumin (test code = 1751-7) 3.6 g/dL 4.0-5.0 L Globulin, Total (test code = 2.9 g/dL 1.5-4.5 17580-5) A/G Ratio (test code = 1759-0) 1.2 1.2-2.2 Bilirubin, Total (test code = 0.5 mg/dL 0.0-1.2 1974-2) Alkaline Phosphatase (test 103 IU/L 39-117 code = 6768-6) AST (SGOT) (test code = 20 IU/L 0-40 1920-8) ALT (SGPT) (test code = 30 IU/L 0-44 2-6) [facility] Description: Lipid [id number] 03:19:00 Test Item Value Reference Range Interpretation Comments Cholesterol, Total (test code = 231 mg/dL 100-199 H 3-3) Triglycerides (test code = 2571-8) 215 mg/dL 0-149 H HDL Cholesterol (test code = 34 mg/dL >39 L 2084-9) VLDL Cholesterol Renuka (test code = 43 mg/dL 5-40 H 93056-1) LDL Cholesterol Calc (test code = 154 mg/dL 0-99 H 05039-8) Comment: (test code = 35698-5) [facility] Description: Comp. Metabolic Panel (2019-11-10 03:19:00 Test Item Value Reference Range Interpretation Comments Glucose (test code = 2345-7) 439 mg/dL 65-99 H BUN (test code = 3094-0) 49 mg/dL 6-24 H Creatinine (test code = 2.17 mg/dL 0.76-1.27 H 2160-0) eGFR If NonAfricn Am (test 35 mL/min/1.73 >59 L code = 66430-7) eGFR If Africn Am (test code = 41 mL/min/1.73 >59 L 59454-8) BUN/Creatinine Ratio (test 23 9-20 H code = 3097-3) Sodium (test code = 2951-2) 137 mmol/L 134-144 Potassium (test code = 2823-3) 4.9 mmol/L 3.5-5.2 Chloride (test code = 2075-0) 93 mmol/L 96-106 L Carbon Dioxide, Total (test 29 mmol/L 20-29 code = 2027-9) Calcium (test code = 79214-2) 9.5 mg/dL 8.7-10.2 Protein, Total (test code = 6.5 g/dL 6.0-8.5 2885-2) Albumin (test code = 1751-7) 3.6 g/dL 4.0-5.0 L Globulin, Total (test code = 2.9 g/dL 1.5-4.5 67219-3) A/G Ratio (test code = 1759-0) 1.2 1.2-2.2 Bilirubin, Total (test code = 0.5 mg/dL 0.0-1.2 1974-2) Alkaline Phosphatase (test 103 IU/L 39-117 code = 6768-6) AST (SGOT) (test code = 20 IU/L 0-40 1920-8) ALT (SGPT) (test code = 30 IU/L 0-44 1742-6) [employer] Description: Lipid [id number] 03:19:00 Test Item Value Reference Range Interpretation Comments Cholesterol, Total (test code = 231 mg/dL 100-199 H 3-3) Triglycerides (test code = 2571-8) 215 mg/dL 0-149 H HDL Cholesterol (test code = 34 mg/dL >39 L 5-9) VLDL Cholesterol Renuka (test code = 43 mg/dL 5-40 H 01492-1) LDL Cholesterol Calc (test code = 154 mg/dL 0-99 H 99633-4) Comment: (test code = 98326-0) [employer] Description: Comp. Metabolic Panel (14)2019-11-10 03:19:00 Test Item Value Reference Range Interpretation Comments Glucose (test code = 2345-7) 439 mg/dL 65-99 H BUN (test code = 3094-0) 49 mg/dL 6-24 H Creatinine (test code = 2.17 mg/dL 0.76-1.27 H 2160-0) eGFR If NonAfricn Am (test 35 mL/min/1.73 >59 L code = 40473-8) eGFR If Africn Am (test code = 41 mL/min/1.73 >59 L 68441-7) BUN/Creatinine Ratio (test 23 9-20 H code = 3097-3) Sodium (test code = 2951-2) 137 mmol/L 134-144 Potassium (test code = 2823-3) 4.9 mmol/L 3.5-5.2 Chloride (test code = 2075-0) 93 mmol/L 96-106 L Carbon Dioxide, Total (test 29 mmol/L 20-29 code = 2027-9) Calcium (test code = 86954-0) 9.5 mg/dL 8.7-10.2 Protein, Total (test code = 6.5 g/dL 6.0-8.5 2885-2) Albumin (test code = 1751-7) 3.6 g/dL 4.0-5.0 L Globulin, Total (test code = 2.9 g/dL 1.5-4.5 56006-6) A/G Ratio (test code = 1759-0) 1.2 1.2-2.2 Bilirubin, Total (test code = 0.5 mg/dL 0.0-1.2 1974-2) Alkaline Phosphatase (test 103 IU/L 39-117 code = 6768-6) AST (SGOT) (test code = 20 IU/L 0-40 1920-8) ALT (SGPT) (test code = 30 IU/L 0-44 1742-6) [employer] Description: Lipid [id number] 03:19:00 Test Item Value Reference Range Interpretation Comments Cholesterol, Total (test code = 231 mg/dL 100-199 H 2092-3) Triglycerides (test code = 2571-8) 215 mg/dL 0-149 H HDL Cholesterol (test code = 34 mg/dL >39 L 2084-9) VLDL Cholesterol Renuka (test code = 43 mg/dL 5-40 H 18737-1) LDL Cholesterol Calc (test code = 154 mg/dL 0-99 H 30523-9) Comment: (test code = 02776-1) [employer] Description: Comp. Metabolic Panel (14)2019-11-10 03:19:00 Test Item Value Reference Range Interpretation Comments Glucose (test code = 2345-7) 439 mg/dL 65-99 H BUN (test code = 3094-0) 49 mg/dL 6-24 H Creatinine (test code = 2.17 mg/dL 0.76-1.27 H 2160-0) eGFR If NonAfricn Am (test 35 mL/min/1.73 >59 L code = 01353-9) eGFR If Africn Am (test code = 41 mL/min/1.73 >59 L 97318-6) BUN/Creatinine Ratio (test 23 9-20 H code = 3097-3) Sodium (test code = 2951-2) 137 mmol/L 134-144 Potassium (test code = 2823-3) 4.9 mmol/L 3.5-5.2 Chloride (test code = 2075-0) 93 mmol/L 96-106 L Carbon Dioxide, Total (test 29 mmol/L 20-29 code = 8-9) Calcium (test code = 52436-8) 9.5 mg/dL 8.7-10.2 Protein, Total (test code = 6.5 g/dL 6.0-8.5 2885-2) Albumin (test code = 1751-7) 3.6 g/dL 4.0-5.0 L Globulin, Total (test code = 2.9 g/dL 1.5-4.5 05612-4) A/G Ratio (test code = 1759-0) 1.2 1.2-2.2 Bilirubin, Total (test code = 0.5 mg/dL 0.0-1.2 1974-2) Alkaline Phosphatase (test 103 IU/L 39-117 code = 6768-6) AST (SGOT) (test code = 20 IU/L 0-40 1920-8) ALT (SGPT) (test code = 30 IU/L 0-44 1742-6) [facility] Description: Lipid [id number] 03:19:00 Test Item Value Reference Range Interpretation Comments Cholesterol, Total (test code = 231 mg/dL 100-199 H 209-3) Triglycerides (test code = 2571-8) 215 mg/dL 0-149 H HDL Cholesterol (test code = 34 mg/dL >39 L 5-9) VLDL Cholesterol Renuka (test code = 43 mg/dL 5-40 H 32133-0) LDL Cholesterol Calc (test code = 154 mg/dL 0-99 H 73922-4) Comment: (test code = 47431-4) [employer] Description: Comp. Metabolic Panel (14)2019-11-10 03:19:00 Test Item Value Reference Range Interpretation Comments Glucose (test code = 2345-7) 439 mg/dL 65-99 H BUN (test code = 3094-0) 49 mg/dL 6-24 H Creatinine (test code = 2.17 mg/dL 0.76-1.27 H 2160-0) eGFR If NonAfricn Am (test 35 mL/min/1.73 >59 L code = 11728-5) eGFR If Africn Am (test code = 41 mL/min/1.73 >59 L 36812-2) BUN/Creatinine Ratio (test 23 9-20 H code = 3097-3) Sodium (test code = 2951-2) 137 mmol/L 134-144 Potassium (test code = 2823-3) 4.9 mmol/L 3.5-5.2 Chloride (test code = 2075-0) 93 mmol/L 96-106 L Carbon Dioxide, Total (test 29 mmol/L 20-29 code = 2027-9) Calcium (test code = 90838-9) 9.5 mg/dL 8.7-10.2 Protein, Total (test code = 6.5 g/dL 6.0-8.5 2885-2) Albumin (test code = 1751-7) 3.6 g/dL 4.0-5.0 L Globulin, Total (test code = 2.9 g/dL 1.5-4.5 69301-5) A/G Ratio (test code = 1759-0) 1.2 1.2-2.2 Bilirubin, Total (test code = 0.5 mg/dL 0.0-1.2 1974-2) Alkaline Phosphatase (test 103 IU/L 39-117 code = 6768-6) AST (SGOT) (test code = 20 IU/L 0-40 1920-8) ALT (SGPT) (test code = 30 IU/L 0-44 1742-6) [employer] Description: Lipid [id number] 03:19:00 Test Item Value Reference Range Interpretation Comments Cholesterol, Total (test code = 231 mg/dL 100-199 H 3-3) Triglycerides (test code = 2571-8) 215 mg/dL 0-149 H HDL Cholesterol (test code = 34 mg/dL >39 L 2084-9) VLDL Cholesterol Renuka (test code = 43 mg/dL 5-40 H 17606-2) LDL Cholesterol Calc (test code = 154 mg/dL 0-99 H 94897-3) Comment: (test code = 66668-7) [employer] Description: Comp. Metabolic Panel (14)2019-11-10 03:19:00 Test Item Value Reference Range Interpretation Comments Glucose (test code = 2345-7) 439 mg/dL 65-99 H BUN (test code = 3094-0) 49 mg/dL 6-24 H Creatinine (test code = 2.17 mg/dL 0.76-1.27 H 2160-0) eGFR If NonAfricn Am (test 35 mL/min/1.73 >59 L code = 79797-5) eGFR If Africn Am (test code = 41 mL/min/1.73 >59 L 91467-6) BUN/Creatinine Ratio (test 23 9-20 H code = 3097-3) Sodium (test code = 2951-2) 137 mmol/L 134-144 Potassium (test code = 2823-3) 4.9 mmol/L 3.5-5.2 Chloride (test code = 2075-0) 93 mmol/L 96-106 L Carbon Dioxide, Total (test 29 mmol/L 20-29 code = 8-9) Calcium (test code = 62866-0) 9.5 mg/dL 8.7-10.2 Protein, Total (test code = 6.5 g/dL 6.0-8.5 2885-2) Albumin (test code = 1751-7) 3.6 g/dL 4.0-5.0 L Globulin, Total (test code = 2.9 g/dL 1.5-4.5 60443-4) A/G Ratio (test code = 1759-0) 1.2 1.2-2.2 Bilirubin, Total (test code = 0.5 mg/dL 0.0-1.2 1975-2) Alkaline Phosphatase (test 103 IU/L 39-117 code = 6768-6) AST (SGOT) (test code = 20 IU/L 0-40 1920-8) ALT (SGPT) (test code = 30 IU/L 0-44 1742-6) [facility] Description: Lipid [id number] 03:19:00 Test Item Value Reference Range Interpretation Comments Cholesterol, Total (test code = 231 mg/dL 100-199 H 3-3) Triglycerides (test code = 2571-8) 215 mg/dL 0-149 H HDL Cholesterol (test code = 34 mg/dL >39 L 5-9) VLDL Cholesterol Renuka (test code = 43 mg/dL 5-40 H 95003-4) LDL Cholesterol Calc (test code = 154 mg/dL 0-99 H 20104-3) Comment: (test code = 65161-3) [employer] Description: Comp. Metabolic Panel ()2019-11-10 03:19:00 Test Item Value Reference Range Interpretation Comments Glucose (test code = 2345-7) 439 mg/dL 65-99 H BUN (test code = 3094-0) 49 mg/dL 6-24 H Creatinine (test code = 2.17 mg/dL 0.76-1.27 H 2160-0) eGFR If NonAfricn Am (test 35 mL/min/1.73 >59 L code = 44043-5) eGFR If Africn Am (test code = 41 mL/min/1.73 >59 L 22977-4) BUN/Creatinine Ratio (test 23 9-20 H code = 3097-3) Sodium (test code = 2951-2) 137 mmol/L 134-144 Potassium (test code = 2823-3) 4.9 mmol/L 3.5-5.2 Chloride (test code = 2075-0) 93 mmol/L 96-106 L Carbon Dioxide, Total (test 29 mmol/L 20-29 code = 8-9) Calcium (test code = 17783-8) 9.5 mg/dL 8.7-10.2 Protein, Total (test code = 6.5 g/dL 6.0-8.5 2885-2) Albumin (test code = 1751-7) 3.6 g/dL 4.0-5.0 L Globulin, Total (test code = 2.9 g/dL 1.5-4.5 39069-0) A/G Ratio (test code = 1759-0) 1.2 1.2-2.2 Bilirubin, Total (test code = 0.5 mg/dL 0.0-1.2 1974-2) Alkaline Phosphatase (test 103 IU/L 39-117 code = 6768-6) AST (SGOT) (test code = 20 IU/L 0-40 1920-8) ALT (SGPT) (test code = 30 IU/L 0-44 1742-6) [facility] Description: Lipid [id number] 03:19:00 Test Item Value Reference Range Interpretation Comments Cholesterol, Total (test code = 231 mg/dL 100-199 H 2092-3) Triglycerides (test code = 2571-8) 215 mg/dL 0-149 H HDL Cholesterol (test code = 34 mg/dL >39 L 2084-9) VLDL Cholesterol Renuka (test code = 43 mg/dL 5-40 H 42330-5) LDL Cholesterol Calc (test code = 154 mg/dL 0-99 H 67674-8) Comment: (test code = 34123-7) [employer] Description: Comp. Metabolic Panel (2019-11-10 03:19:00 Test Item Value Reference Range Interpretation Comments Glucose (test code = 2345-7) 439 mg/dL 65-99 H BUN (test code = 3094-0) 49 mg/dL 6-24 H Creatinine (test code = 2.17 mg/dL 0.76-1.27 H 2160-0) eGFR If NonAfricn Am (test 35 mL/min/1.73 >59 L code = 59433-8) eGFR If Africn Am (test code = 41 mL/min/1.73 >59 L 41662-5) BUN/Creatinine Ratio (test 23 9-20 H code = 3097-3) Sodium (test code = 2951-2) 137 mmol/L 134-144 Potassium (test code = 2823-3) 4.9 mmol/L 3.5-5.2 Chloride (test code = 2075-0) 93 mmol/L 96-106 L Carbon Dioxide, Total (test 29 mmol/L 20-29 code = 2028-9) Calcium (test code = 33679-5) 9.5 mg/dL 8.7-10.2 Protein, Total (test code = 6.5 g/dL 6.0-8.5 2885-2) Albumin (test code = 1751-7) 3.6 g/dL 4.0-5.0 L Globulin, Total (test code = 2.9 g/dL 1.5-4.5 32777-8) A/G Ratio (test code = 1759-0) 1.2 1.2-2.2 Bilirubin, Total (test code = 0.5 mg/dL 0.0-1.2 1975-2) Alkaline Phosphatase (test 103 IU/L 39-117 code = 6768-6) AST (SGOT) (test code = 20 IU/L 0-40 1920-8) ALT (SGPT) (test code = 30 IU/L 0-44 1742-6) [facility] Description: Lipid [id number] 03:19:00 Test Item Value Reference Range Interpretation Comments Cholesterol, Total (test code = 231 mg/dL 100-199 H 2092-3) Triglycerides (test code = 2571-8) 215 mg/dL 0-149 H HDL Cholesterol (test code = 34 mg/dL >39 L 2084-9) VLDL Cholesterol Renuka (test code = 43 mg/dL 5-40 H 95378-1) LDL Cholesterol Calc (test code = 154 mg/dL 0-99 H 45173-4) Comment: (test code = 27739-3) [employer] [facility] Description: Comp. Metabolic Panel (14)2019-11-10 03:19:00 Test Item Value Reference Range Interpretation Comments Glucose (test code = 2345-7) 439 mg/dL 65-99 H BUN (test code = 3094-0) 49 mg/dL 6-24 H Creatinine (test code = 2.17 mg/dL 0.76-1.27 H 2160-0) eGFR If NonAfricn Am (test 35 mL/min/1.73 >59 L code = 89317-9) eGFR If Africn Am (test code = 41 mL/min/1.73 >59 L 16925-1) BUN/Creatinine Ratio (test 23 9-20 H code = 3097-3) Sodium (test code = 2951-2) 137 mmol/L 134-144 Potassium (test code = 2823-3) 4.9 mmol/L 3.5-5.2 Chloride (test code = 2075-0) 93 mmol/L 96-106 L Carbon Dioxide, Total (test 29 mmol/L 20-29 code = 2027-9) Calcium (test code = 03286-2) 9.5 mg/dL 8.7-10.2 Protein, Total (test code = 6.5 g/dL 6.0-8.5 2885-2) Albumin (test code = 1751-7) 3.6 g/dL 4.0-5.0 L Globulin, Total (test code = 2.9 g/dL 1.5-4.5 18266-8) A/G Ratio (test code = 1759-0) 1.2 1.2-2.2 Bilirubin, Total (test code = 0.5 mg/dL 0.0-1.2 1974-2) Alkaline Phosphatase (test 103 IU/L 39-117 code = 6768-6) AST (SGOT) (test code = 20 IU/L 0-40 1920-8) ALT (SGPT) (test code = 30 IU/L 0-44 1742-6) [employer] Description: Lipid [id number] 03:19:00 Test Item Value Reference Range Interpretation Comments Cholesterol, Total (test code = 231 mg/dL 100-199 H 2092-3) Triglycerides (test code = 2571-8) 215 mg/dL 0-149 H HDL Cholesterol (test code = 34 mg/dL >39 L 2084-9) VLDL Cholesterol Renuka (test code = 43 mg/dL 5-40 H 46516-0) LDL Cholesterol Calc (test code = 154 mg/dL 0-99 H 93723-7) Comment: (test code = 92600-3) [employer] Description: Comp. Metabolic Panel (14)2019-11-10 03:19:00 Test Item Value Reference Range Interpretation Comments Glucose (test code = 2345-7) 439 mg/dL 65-99 H BUN (test code = 3094-0) 49 mg/dL 6-24 H Creatinine (test code = 2.17 mg/dL 0.76-1.27 H 2160-0) eGFR If NonAfricn Am (test 35 mL/min/1.73 >59 L code = 40386-2) eGFR If Africn Am (test code = 41 mL/min/1.73 >59 L 16112-0) BUN/Creatinine Ratio (test 23 9-20 H code = 3097-3) Sodium (test code = 2951-2) 137 mmol/L 134-144 Potassium (test code = 2823-3) 4.9 mmol/L 3.5-5.2 Chloride (test code = 2075-0) 93 mmol/L 96-106 L Carbon Dioxide, Total (test 29 mmol/L 20-29 code = 2027-9) Calcium (test code = 82446-7) 9.5 mg/dL 8.7-10.2 Protein, Total (test code = 6.5 g/dL 6.0-8.5 2885-2) Albumin (test code = 1751-7) 3.6 g/dL 4.0-5.0 L Globulin, Total (test code = 2.9 g/dL 1.5-4.5 34029-0) A/G Ratio (test code = 1759-0) 1.2 1.2-2.2 Bilirubin, Total (test code = 0.5 mg/dL 0.0-1.2 1974-2) Alkaline Phosphatase (test 103 IU/L 39-117 code = 6768-6) AST (SGOT) (test code = 20 IU/L 0-40 1920-8) ALT (SGPT) (test code = 30 IU/L 0-44 1742-6) [employer] Description: Lipid [id number] 03:19:00 Test Item Value Reference Range Interpretation Comments Cholesterol, Total (test code = 231 mg/dL 100-199 H 2092-3) Triglycerides (test code = 2571-8) 215 mg/dL 0-149 H HDL Cholesterol (test code = 34 mg/dL >39 L 2084-9) VLDL Cholesterol Renuka (test code = 43 mg/dL 5-40 H 61282-9) LDL Cholesterol Calc (test code = 154 mg/dL 0-99 H 73991-5) Comment: (test code = 68252-9) [employer] Description: Comp. Metabolic Panel (14)2019-11-10 03:19:00 Test Item Value Reference Range Interpretation Comments Glucose (test code = 2345-7) 439 mg/dL 65-99 H BUN (test code = 3094-0) 49 mg/dL 6-24 H Creatinine (test code = 2.17 mg/dL 0.76-1.27 H 2160-0) eGFR If NonAfricn Am (test 35 mL/min/1.73 >59 L code = 30881-3) eGFR If Africn Am (test code = 41 mL/min/1.73 >59 L 41322-8) BUN/Creatinine Ratio (test 23 9-20 H code = 3097-3) Sodium (test code = 2951-2) 137 mmol/L 134-144 Potassium (test code = 2823-3) 4.9 mmol/L 3.5-5.2 Chloride (test code = 2075-0) 93 mmol/L 96-106 L Carbon Dioxide, Total (test 29 mmol/L 20-29 code = 2028-9) Calcium (test code = 22625-1) 9.5 mg/dL 8.7-10.2 Protein, Total (test code = 6.5 g/dL 6.0-8.5 2885-2) Albumin (test code = 1751-7) 3.6 g/dL 4.0-5.0 L Globulin, Total (test code = 2.9 g/dL 1.5-4.5 43986-0) A/G Ratio (test code = 1759-0) 1.2 1.2-2.2 Bilirubin, Total (test code = 0.5 mg/dL 0.0-1.2 1975-2) Alkaline Phosphatase (test 103 IU/L 39-117 code = 6768-6) AST (SGOT) (test code = 20 IU/L 0-40 1920-8) ALT (SGPT) (test code = 30 IU/L 0-44 1742-6) [facility] Description: Lipid [id number] 03:19:00 Test Item Value Reference Range Interpretation Comments Cholesterol, Total (test code = 231 mg/dL 100-199 H 2093-3) Triglycerides (test code = 2571-8) 215 mg/dL 0-149 H HDL Cholesterol (test code = 34 mg/dL >39 L 2085-9) VLDL Cholesterol Renuka (test code = 43 mg/dL 5-40 H 16572-1) LDL Cholesterol Calc (test code = 154 mg/dL 0-99 H 38540-5) Comment: (test code = 86311-8) [facility], NON [id number] 23:44:00Reason for exam:- >SHORTNESS OF BREATHReason for [...] structures are grossly unremarkable. Signed: Kassi Oseguera MDRort Verified Date/Time: 07/15/2019 23:44:04 B-TYPE NATRIURETIC FACTOR (BNP)2019-07-15 23:19:00 Test Item Value Reference Range Interpretation Comments B-TYPE NATRIURETIC PEPTIDE (BEAKER) 482 pg/mL 0-100 H (test code = 700) [employer] Molder ID - LACIE BTROPONIN [id number] 23:17:00 Test Item Value Reference Range Interpretation [...] failure, acidosis, acute neurological disease, and persistent tachyarrhythmia.S[employer] Molder ID - LACIE BCOMPREHENSIVE METABOLIC [id number] 23:11:00 Test Item Value Reference Range Interpretation [...] S NOT APPLICABLE FOR DIALYSIS PATIEN TS. Sole Molder ID - LACIE BCBC W/PLT COUNT & AUTO [id number] 22:51:00 Test Item Value Reference Range Interpretation [...] = 2801) Panel Description: Hemoglobin A1c/Hemoglobin.total in [id number] 09:26:00 Test Item Value Reference Range Interpretation Comments Hemoglobin A1c (test code 10.1 % 4.8-5.6 H = 4548-4) . Prediabetes: 5. 7 - 6.4 Diabete s: >6.4 Glycemi c control for niall lts with diabetes: <7.0

P erforme d by:
[facility] ()

[facility] Description: Hemoglobin A1c/Hemoglobin.total in Blood 2019-07-04 09:26:00 Test Item Value Reference Range Interpretation Comments Hemoglobin A1c (test code 10.1 % 4.8-5.6 H = 4548-4) . Prediabetes: 5. 7 - 6.4 Diabete s: >6.4 Glycemi c control for niall lts with diabetes: <7.0

P erforme d by:
[facility] [place] ([place])

[facility] Description: Hemoglobin A1c/Hemoglobin.total in Blood 2019-07-04 09:26:00 Test Item Value Reference Range Interpretation Comments Hemoglobin A1c (test code 10.1 % 4.8-5.6 H = 4548-4) . Prediabetes: 5. 7 - 6.4 Diabete s: >6.4 Glycemi c control for niall lts with diabetes: <7.0

P erforme d by:
[facility] [place] ([place])

[facility] Description: Hemoglobin A1c/Hemoglobin.total in Blood 2019-07-04 09:26:00 Test Item Value Reference Range Interpretation Comments Hemoglobin A1c (test code 10.1 % 4.8-5.6 H = 4548-4) . Prediabetes: 5. 7 - 6.4 Diabete s: >6.4 Glycemi c control for niall lts with diabetes: <7.0

P erforme d by:
[facility] [place] ([place])

[facility] Description: Hemoglobin A1c/Hemoglobin.total in Blood 2019-07-04 09:26:00 Test Item Value Reference Range Interpretation Comments Hemoglobin A1c (test code 10.1 % 4.8-5.6 H = 4548-4) . Prediabetes: 5. 7 - 6.4 Diabete s: >6.4 Glycemi c control for niall lts with diabetes: <7.0

P erforme d by:
[facility] [place] ([place])

[facility] Description: Hemoglobin A1c/Hemoglobin.total in Blood 2019-07-04 09:26:00 Test Item Value Reference Range Interpretation Comments Hemoglobin A1c (test code 10.1 % 4.8-5.6 H = 4548-4) . Prediabetes: 5. 7 - 6.4 Diabete s: >6.4 Glycemi c control for niall lts with diabetes: <7.0

P erforme d by:
[facility] [place] ([place])

[facility]: Hemoglobin A1c/Hemoglobin.total in Blood 2019-07-04 09:26:00 Test Item Value Reference Range Interpretation Comments Hemoglobin A1c (test code 10.1 % 4.8-5.6 H = 4548-4) . Prediabetes: 5. 7 - 6.4 Diabete s: >6.4 Glycemi c control for niall lts with diabetes: <7.0

P erforme d by:
[facility] [place] ([place])

[facility] Description: Hemoglobin A1c/Hemoglobin.total in Blood 2019-07-04 09:26:00 Test Item Value Reference Range Interpretation Comments Hemoglobin A1c (test code 10.1 % 4.8-5.6 H = 4548-4) . Prediabetes: 5. 7 - 6.4 Diabete s: >6.4 Glycemi c control for niall lts with diabetes: <7.0

P erforme d by:
[facility] [place] ([place])

[facility] Description: Hemoglobin A1c/Hemoglobin.total in Blood 2019-07-04 09:26:00 Test Item Value Reference Range Interpretation Comments Hemoglobin A1c (test code 10.1 % 4.8-5.6 H = 4548-4) . Prediabetes: 5. 7 - 6.4 Diabete s: >6.4 Glycemi c control for niall lts with diabetes: <7.0

P erforme d by:
[facility] [place] ([place])

[facility] Description: Hemoglobin A1c/Hemoglobin.total in Blood 2019-07-04 09:26:00 Test Item Value Reference Range Interpretation Comments Hemoglobin A1c (test code 10.1 % 4.8-5.6 H = 4548-4) . Prediabetes: 5. 7 - 6.4 Diabete s: >6.4 Glycemi c control for niall lts with diabetes: <7.0

P erforme d by:
[facility] [place] ([place])

[facility]: Hemoglobin A1c/Hemoglobin.total in Blood 2019-07-04 09:26:00 Test Item Value Reference Range Interpretation Comments Hemoglobin A1c (test code 10.1 % 4.8-5.6 H = 4548-4) . Prediabetes: 5. 7 - 6.4 Diabete s: >6.4 Glycemi c control for niall lts with diabetes: <7.0

P erforme d by:
[facility] [place] ([place])

[facility] Description: Hemoglobin A1c/Hemoglobin.total in Blood 2019-07-04 09:26:00 Test Item Value Reference Range Interpretation Comments Hemoglobin A1c (test code 10.1 % 4.8-5.6 H = 4548-4) . Prediabetes: 5. 7 - 6.4 Diabete s: >6.4 Glycemi c control for niall lts with diabetes: <7.0

P erforme d by:
[facility] [place] ([place])

[facility] Description: Hemoglobin A1c/Hemoglobin.total in Blood 2019-07-04 09:26:00 Test Item Value Reference Range Interpretation Comments Hemoglobin A1c (test code 10.1 % 4.8-5.6 H = 4548-4) . Prediabetes: 5. 7 - 6.4 Diabete s: >6.4 Glycemi c control for niall lts with diabetes: <7.0

P erforme d by:
[facility] [place] ([place])

[facility] Description: Hemoglobin A1c/Hemoglobin.total in Blood 2019-07-04 09:26:00 Test Item Value Reference Range Interpretation Comments Hemoglobin A1c (test code 10.1 % 4.8-5.6 H = 4548-4) . Prediabetes: 5. 7 - 6.4 Diabete s: >6.4 Glycemi c control for niall lts with diabetes: <7.0

P erforme d by:
[facility] [place] ([place])

[facility]: Hemoglobin A1c/Hemoglobin.total in Blood 2019-07-04 09:26:00 Test Item Value Reference Range Interpretation Comments Hemoglobin A1c (test code 10.1 % 4.8-5.6 H = 4548-4) . Prediabetes: 5. 7 - 6.4 Diabete s: >6.4 Glycemi c control for niall lts with diabetes: <7.0

P erforme d by:
[facility] [place] ([place])

[facility]: Hemoglobin A1c/Hemoglobin.total in Blood 2019-07-04 09:26:00 Test Item Value Reference Range Interpretation Comments Hemoglobin A1c (test code 10.1 % 4.8-5.6 H = 4548-4) . Prediabetes: 5. 7 - 6.4 Diabete s: >6.4 Glycemi c control for niall lts with diabetes: <7.0

P erforme d by:
[facility] ([place])

[facility]: Hemoglobin A1c/Hemoglobin.total in Blood 2019-07-04 09:26:00 Test Item Value Reference Range Interpretation Comments Hemoglobin A1c (test code 10.1 % 4.8-5.6 H = 4548-4) . Prediabetes: 5. 7 - 6.4 Diabete s: >6.4 Glycemi c control for niall lts with diabetes: <7.0

P erforme d by:
[facility] ([place])

[facility]: Hemoglobin A1c/Hemoglobin.total in Blood 2019-07-04 09:26:00 Test Item Value Reference Range Interpretation Comments Hemoglobin A1c (test code 10.1 % 4.8-5.6 H = 4548-4) . Prediabetes: 5. 7 - 6.4 Diabete s: >6.4 Glycemi c control for niall lts with diabetes: <7.0

P erforme d by:
[facility] [place] ([place])

[facility] Description: Lipid [id number] 01:17:00 Test Item Value Reference Range Interpretation Comments Cholesterol, Total (test code = 241 mg/dL 100-199 H 2093-3) Triglycerides (test code = 2571-8) 57 mg/dL 0-149 HDL Cholesterol (test code = 37 mg/dL >39 L 2085-9) VLDL Cholesterol Renuka (test code = 11 mg/dL 5-40 55642-2) LDL Cholesterol Calc (test code = 193 mg/dL 0-99 H 90013-9) Comment: (test code = 74199-0) [employer] Description: Lipid [id number] 01:17:00 Test Item Value Reference Range Interpretation Comments Cholesterol, Total (test code = 241 mg/dL 100-199 H 2093-3) Triglycerides (test code = 2571-8) 57 mg/dL 0-149 HDL Cholesterol (test code = 37 mg/dL >39 L 2085-9) VLDL Cholesterol Renuka (test code = 11 mg/dL 5-40 00870-0) LDL Cholesterol Calc (test code = 193 mg/dL 0-99 H 49725-3) Comment: (test code = 82268-0) [employer] Description: Lipid [id number] 01:17:00 Test Item Value Reference Range Interpretation Comments Cholesterol, Total (test code = 241 mg/dL 100-199 H 2093-3) Triglycerides (test code = 2571-8) 57 mg/dL 0-149 HDL Cholesterol (test code = 37 mg/dL >39 L 2085-9) VLDL Cholesterol Renuka (test code = 11 mg/dL 5-40 58264-1) LDL Cholesterol Calc (test code = 193 mg/dL 0-99 H 92037-1) Comment: (test code = 23160-7) [employer] Description: Lipid [id number] 01:17:00 Test Item Value Reference Range Interpretation Comments Cholesterol, Total (test code = 241 mg/dL 100-199 H 2093-3) Triglycerides (test code = 2571-8) 57 mg/dL 0-149 HDL Cholesterol (test code = 37 mg/dL >39 L 2085-9) VLDL Cholesterol Renuka (test code = 11 mg/dL 5-40 48115-8) LDL Cholesterol Calc (test code = 193 mg/dL 0-99 H 09201-0) Comment: (test code = 30172-0) [employer] Description: Lipid [id number] 01:17:00 Test Item Value Reference Range Interpretation Comments Cholesterol, Total (test code = 241 mg/dL 100-199 H 2093-3) Triglycerides (test code = 2571-8) 57 mg/dL 0-149 HDL Cholesterol (test code = 37 mg/dL >39 L 2085-9) VLDL Cholesterol Renuka (test code = 11 mg/dL 5-40 06070-7) LDL Cholesterol Calc (test code = 193 mg/dL 0-99 H 53021-9) Comment: (test code = 74115-5) [employer] Description: Lipid [id number] 01:17:00 Test Item Value Reference Range Interpretation Comments Cholesterol, Total (test code = 241 mg/dL 100-199 H 2093-3) Triglycerides (test code = 2571-8) 57 mg/dL 0-149 HDL Cholesterol (test code = 37 mg/dL >39 L 2085-9) VLDL Cholesterol Renuka (test code = 11 mg/dL 5-40 58303-5) LDL Cholesterol Calc (test code = 193 mg/dL 0-99 H 00899-7) Comment: (test code = 03306-3) [employer] Description: Lipid [id number] 01:17:00 Test Item Value Reference Range Interpretation Comments Cholesterol, Total (test code = 241 mg/dL 100-199 H 2093-3) Triglycerides (test code = 2571-8) 57 mg/dL 0-149 HDL Cholesterol (test code = 37 mg/dL >39 L 2085-9) VLDL Cholesterol Renuka (test code = 11 mg/dL 5-40 29732-2) LDL Cholesterol Calc (test code = 193 mg/dL 0-99 H 47515-4) Comment: (test code = 34812-8) [employer] Description: Lipid [id number] 01:17:00 Test Item Value Reference Range Interpretation Comments Cholesterol, Total (test code = 241 mg/dL 100-199 H 2093-3) Triglycerides (test code = 2571-8) 57 mg/dL 0-149 HDL Cholesterol (test code = 37 mg/dL >39 L 2085-9) VLDL Cholesterol Renuka (test code = 11 mg/dL 5-40 46705-2) LDL Cholesterol Calc (test code = 193 mg/dL 0-99 H 51139-5) Comment: (test code = 36491-9) [employer] Description: Lipid [id number] 01:17:00 Test Item Value Reference Range Interpretation Comments Cholesterol, Total (test code = 241 mg/dL 100-199 H 2093-3) Triglycerides (test code = 2571-8) 57 mg/dL 0-149 HDL Cholesterol (test code = 37 mg/dL >39 L 2085-9) VLDL Cholesterol Renuka (test code = 11 mg/dL 5-40 65566-4) LDL Cholesterol Calc (test code = 193 mg/dL 0-99 H 04046-0) Comment: (test code = 13971-0) [employer] Description: Lipid [id number] 01:17:00 Test Item Value Reference Range Interpretation Comments Cholesterol, Total (test code = 241 mg/dL 100-199 H 2093-3) Triglycerides (test code = 2571-8) 57 mg/dL 0-149 HDL Cholesterol (test code = 37 mg/dL >39 L 2085-9) VLDL Cholesterol Renuka (test code = 11 mg/dL 5-40 78591-3) LDL Cholesterol Calc (test code = 193 mg/dL 0-99 H 91698-9) Comment: (test code = 01376-4) [employer] Description: Lipid [id number] 01:17:00 Test Item Value Reference Range Interpretation Comments Cholesterol, Total (test code = 241 mg/dL 100-199 H 2093-3) Triglycerides (test code = 2571-8) 57 mg/dL 0-149 HDL Cholesterol (test code = 37 mg/dL >39 L 2085-9) VLDL Cholesterol Renuka (test code = 11 mg/dL 5-40 67070-6) LDL Cholesterol Calc (test code = 193 mg/dL 0-99 H 28165-5) Comment: (test code = 78080-9) [employer] Description: Lipid [id number] 01:17:00 Test Item Value Reference Range Interpretation Comments Cholesterol, Total (test code = 241 mg/dL 100-199 H 2093-3) Triglycerides (test code = 2571-8) 57 mg/dL 0-149 HDL Cholesterol (test code = 37 mg/dL >39 L 2085-9) VLDL Cholesterol Renuka (test code = 11 mg/dL 5-40 96135-5) LDL Cholesterol Calc (test code = 193 mg/dL 0-99 H 37662-1) Comment: (test code = 03871-2) [employer] Description: Lipid [id number] 01:17:00 Test Item Value Reference Range Interpretation Comments Cholesterol, Total (test code = 241 mg/dL 100-199 H 2093-3) Triglycerides (test code = 2571-8) 57 mg/dL 0-149 HDL Cholesterol (test code = 37 mg/dL >39 L 2085-9) VLDL Cholesterol Renuka (test code = 11 mg/dL 5-40 67872-9) LDL Cholesterol Calc (test code = 193 mg/dL 0-99 H 39710-9) Comment: (test code = 20692-2) [employer] Description: Lipid [id number] 01:17:00 Test Item Value Reference Range Interpretation Comments Cholesterol, Total (test code = 241 mg/dL 100-199 H 2093-3) Triglycerides (test code = 2571-8) 57 mg/dL 0-149 HDL Cholesterol (test code = 37 mg/dL >39 L 2085-9) VLDL Cholesterol Renuka (test code = 11 mg/dL 5-40 03935-0) LDL Cholesterol Calc (test code = 193 mg/dL 0-99 H 23000-0) Comment: (test code = 79247-1) [employer] Description: Lipid [id number] 01:17:00 Test Item Value Reference Range Interpretation Comments Cholesterol, Total (test code = 241 mg/dL 100-199 H 2093-3) Triglycerides (test code = 2571-8) 57 mg/dL 0-149 HDL Cholesterol (test code = 37 mg/dL >39 L 2085-9) VLDL Cholesterol Renuka (test code = 11 mg/dL 5-40 10063-3) LDL Cholesterol Calc (test code = 193 mg/dL 0-99 H 06147-2) Comment: (test code = 70551-0) [employer] Description: Lipid [id number] 01:17:00 Test Item Value Reference Range Interpretation Comments Cholesterol, Total (test code = 241 mg/dL 100-199 H 2093-3) Triglycerides (test code = 2571-8) 57 mg/dL 0-149 HDL Cholesterol (test code = 37 mg/dL >39 L 2085-9) VLDL Cholesterol Renuka (test code = 11 mg/dL 5-40 72442-0) LDL Cholesterol Calc (test code = 193 mg/dL 0-99 H 90018-4) Comment: (test code = 54471-2) [employer] Description: Lipid [id number] 01:17:00 Test Item Value Reference Range Interpretation Comments Cholesterol, Total (test code = 241 mg/dL 100-199 H 2093-3) Triglycerides (test code = 2571-8) 57 mg/dL 0-149 HDL Cholesterol (test code = 37 mg/dL >39 L 2085-9) VLDL Cholesterol Renuka (test code = 11 mg/dL 5-40 35704-1) LDL Cholesterol Calc (test code = 193 mg/dL 0-99 H 20694-4) Comment: (test code = 28587-1) [employer] Description: Lipid [id number] 01:17:00 Test Item Value Reference Range Interpretation Comments Cholesterol, Total (test code = 241 mg/dL 100-199 H 2093-3) Triglycerides (test code = 2571-8) 57 mg/dL 0-149 HDL Cholesterol (test code = 37 mg/dL >39 L 2085-9) VLDL Cholesterol Renuka (test code = 11 mg/dL 5-40 20564-6) LDL Cholesterol Calc (test code = 193 mg/dL 0-99 H 68619-8) Comment: (test code = 06897-2) [employer] Description: Comp. Metabolic Panel (14)2019-07-04 01:03:00 Test Item Value Reference Range Interpretation Comments Glucose (test code = 2345-7) 262 mg/dL 65-99 H BUN (test code = 3094-0) 27 mg/dL 6-24 H Creatinine (test code = 1.46 mg/dL 0.76-1.27 H 2160-0) eGFR If NonAfricn Am (test 57 mL/min/1.73 >59 L code = 66541-5) eGFR If Africn Am (test code = 66 mL/min/1.73 >59 85185-6) BUN/Creatinine Ratio (test 18 12-16 code = 3097-3) Sodium (test code = 2951-2) 140 mmol/L 134-144 Potassium (test code = 2823-3) 4.4 mmol/L 3.5-5.2 Chloride (test code = 2075-0) 106 mmol/L 96-106 Carbon Dioxide, Total (test 23 mmol/L -29 code = 2027-9) Calcium (test code = 40776-9) 8.7 mg/dL 8.7-10.2 Protein, Total (test code = 5.3 g/dL 6.0-8.5 L 2885-2) Albumin (test code = 1751-7) 3.0 g/dL 4.0-5.0 L Globulin, Total (test code = 2.3 g/dL 1.5-4.5 52702-8) A/G Ratio (test code = 1759-0) 1.3 1.2-2.2 Bilirubin, Total (test code = 0.5 mg/dL 0.0-1.2 1975-2) Alkaline Phosphatase (test 95 IU/L 39-117 code = 6768-6) AST (SGOT) (test code = 16 IU/L 0-40 1920-8) ALT (SGPT) (test code = 23 IU/L 0-44 1742-6) [facility] Description: Comp. Metabolic Panel (14)2019-07-04 01:03:00 Test Item Value Reference Range Interpretation Comments Glucose (test code = 2345-7) 262 mg/dL 65-99 H BUN (test code = 3094-0) 27 mg/dL 6-24 H Creatinine (test code = 1.46 mg/dL 0.76-1.27 H 2160-0) eGFR If NonAfricn Am (test 57 mL/min/1.73 >59 L code = 26108-2) eGFR If Africn Am (test code = 66 mL/min/1.73 >59 20964-5) BUN/Creatinine Ratio (test 18 -20 code = 3097-3) Sodium (test code = 2951-2) 140 mmol/L 134-144 Potassium (test code = 2823-3) 4.4 mmol/L 3.5-5.2 Chloride (test code = 2075-0) 106 mmol/L 96-106 Carbon Dioxide, Total (test 23 mmol/L -29 code = 8-9) Calcium (test code = 94764-7) 8.7 mg/dL 8.7-10.2 Protein, Total (test code = 5.3 g/dL 6.0-8.5 L 2885-2) Albumin (test code = 1751-7) 3.0 g/dL 4.0-5.0 L Globulin, Total (test code = 2.3 g/dL 1.5-4.5 71517-3) A/G Ratio (test code = 1759-0) 1.3 1.2-2.2 Bilirubin, Total (test code = 0.5 mg/dL 0.0-1.2 1975-2) Alkaline Phosphatase (test 95 IU/L 39-117 code = 6768-6) AST (SGOT) (test code = 16 IU/L 0-40 1920-8) ALT (SGPT) (test code = 23 IU/L 0-44 1742-6) [facility] Description: Comp. Metabolic Panel (14)2019-07-04 01:03:00 Test Item Value Reference Range Interpretation Comments Glucose (test code = 2345-7) 262 mg/dL 65-99 H BUN (test code = 3094-0) 27 mg/dL 6-24 H Creatinine (test code = 1.46 mg/dL 0.76-1.27 H 2160-0) eGFR If NonAfricn Am (test 57 mL/min/1.73 >59 L code = 93307-9) eGFR If Africn Am (test code = 66 mL/min/1.73 >59 28846-8) BUN/Creatinine Ratio (test 18 9-20 code = 3097-3) Sodium (test code = 2951-2) 140 mmol/L 134-144 Potassium (test code = 2823-3) 4.4 mmol/L 3.5-5.2 Chloride (test code = 2075-0) 106 mmol/L 96-106 Carbon Dioxide, Total (test 23 mmol/L 20-29 code = 2028-9) Calcium (test code = 65945-7) 8.7 mg/dL 8.7-10.2 Protein, Total (test code = 5.3 g/dL 6.0-8.5 L 2885-2) Albumin (test code = 1751-7) 3.0 g/dL 4.0-5.0 L Globulin, Total (test code = 2.3 g/dL 1.5-4.5 07330-0) A/G Ratio (test code = 1759-0) 1.3 1.2-2.2 Bilirubin, Total (test code = 0.5 mg/dL 0.0-1.2 1974-) Alkaline Phosphatase (test 95 IU/L 39-117 code = 6768-6) AST (SGOT) (test code = 16 IU/L 0-40 1920-8) ALT (SGPT) (test code = 23 IU/L 0-44 1742-6) [facility] Description: Comp. Metabolic Panel (14)2019-07-04 01:03:00 Test Item Value Reference Range Interpretation Comments Glucose (test code = 2345-7) 262 mg/dL 65-99 H BUN (test code = 3094-0) 27 mg/dL 6-24 H Creatinine (test code = 1.46 mg/dL 0.76-1.27 H 2160-0) eGFR If NonAfricn Am (test 57 mL/min/1.73 >59 L code = 16826-3) eGFR If Africn Am (test code = 66 mL/min/1.73 >59 88239-0) BUN/Creatinine Ratio (test 18 9-20 code = 3097-3) Sodium (test code = 2951-2) 140 mmol/L 134-144 Potassium (test code = 2823-3) 4.4 mmol/L 3.5-5.2 Chloride (test code = 2075-0) 106 mmol/L 96-106 Carbon Dioxide, Total (test 23 mmol/L 20-29 code = 8-9) Calcium (test code = 93010-2) 8.7 mg/dL 8.7-10.2 Protein, Total (test code = 5.3 g/dL 6.0-8.5 L 2885-2) Albumin (test code = 1751-7) 3.0 g/dL 4.0-5.0 L Globulin, Total (test code = 2.3 g/dL 1.5-4.5 70630-9) A/G Ratio (test code = 1759-0) 1.3 1.2-2.2 Bilirubin, Total (test code = 0.5 mg/dL 0.0-1.2 1974-04) Alkaline Phosphatase (test 95 IU/L 39-117 code = 6768-6) AST (SGOT) (test code = 16 IU/L 0-40 1920-8) ALT (SGPT) (test code = 23 IU/L 0-44 1742-6) [facility] Description: Comp. Metabolic Panel (14)2019-07-04 01:03:00 Test Item Value Reference Range Interpretation Comments Glucose (test code = 2345-7) 262 mg/dL 65-99 H BUN (test code = 3094-0) 27 mg/dL 6-24 H Creatinine (test code = 1.46 mg/dL 0.76-1.27 H 2160-0) eGFR If NonAfricn Am (test 57 mL/min/1.73 >59 L code = 24834-2) eGFR If Africn Am (test code = 66 mL/min/1.73 >59 86701-1) BUN/Creatinine Ratio (test 18 9-20 code = 3097-3) Sodium (test code = 2951-2) 140 mmol/L 134-144 Potassium (test code = 2823-3) 4.4 mmol/L 3.5-5.2 Chloride (test code = 2075-0) 106 mmol/L 96-106 Carbon Dioxide, Total (test 23 mmol/L 20-29 code = 8-9) Calcium (test code = 28532-6) 8.7 mg/dL 8.7-10.2 Protein, Total (test code = 5.3 g/dL 6.0-8.5 L 2885-2) Albumin (test code = 1751-7) 3.0 g/dL 4.0-5.0 L Globulin, Total (test code = 2.3 g/dL 1.5-4.5 97408-3) A/G Ratio (test code = 1759-0) 1.3 1.2-2.2 Bilirubin, Total (test code = 0.5 mg/dL 0.0-1.2 1974-04) Alkaline Phosphatase (test 95 IU/L 39-117 code = 6768-6) AST (SGOT) (test code = 16 IU/L 0-40 1920-8) ALT (SGPT) (test code = 23 IU/L 0-44 1742-6) [facility] Description: Comp. Metabolic Panel (14)2019-07-04 01:03:00 Test Item Value Reference Range Interpretation Comments Glucose (test code = 2345-7) 262 mg/dL 65-99 H BUN (test code = 3094-0) 27 mg/dL 6-24 H Creatinine (test code = 1.46 mg/dL 0.76-1.27 H 2160-0) eGFR If NonAfricn Am (test 57 mL/min/1.73 >59 L code = 59997-1) eGFR If Africn Am (test code = 66 mL/min/1.73 >59 99961-7) BUN/Creatinine Ratio (test 18 9-20 code = 3097-3) Sodium (test code = 2951-2) 140 mmol/L 134-144 Potassium (test code = 2823-3) 4.4 mmol/L 3.5-5.2 Chloride (test code = 2075-0) 106 mmol/L 96-106 Carbon Dioxide, Total (test 23 mmol/L 20-29 code = 8-9) Calcium (test code = 31216-0) 8.7 mg/dL 8.7-10.2 Protein, Total (test code = 5.3 g/dL 6.0-8.5 L 2885-2) Albumin (test code = 1751-7) 3.0 g/dL 4.0-5.0 L Globulin, Total (test code = 2.3 g/dL 1.5-4.5 98229-5) A/G Ratio (test code = 1759-0) 1.3 1.2-2.2 Bilirubin, Total (test code = 0.5 mg/dL 0.0-1.2 1975-2) Alkaline Phosphatase (test 95 IU/L 39-117 code = 6768-6) AST (SGOT) (test code = 16 IU/L 0-40 1920-8) ALT (SGPT) (test code = 23 IU/L 0-44 1742-6) [facility] Description: Comp. Metabolic Panel (14)2019-07-04 01:03:00 Test Item Value Reference Range Interpretation Comments Glucose (test code = 2345-7) 262 mg/dL 65-99 H BUN (test code = 3094-0) 27 mg/dL 6-24 H Creatinine (test code = 1.46 mg/dL 0.76-1.27 H 2160-0) eGFR If NonAfricn Am (test 57 mL/min/1.73 >59 L code = 62061-3) eGFR If Africn Am (test code = 66 mL/min/1.73 >59 62009-5) BUN/Creatinine Ratio (test 18 9-20 code = 3097-3) Sodium (test code = 2951-2) 140 mmol/L 134-144 Potassium (test code = 2823-3) 4.4 mmol/L 3.5-5.2 Chloride (test code = 2075-0) 106 mmol/L 96-106 Carbon Dioxide, Total (test 23 mmol/L 20-29 code = 2028-9) Calcium (test code = 47046-8) 8.7 mg/dL 8.7-10.2 Protein, Total (test code = 5.3 g/dL 6.0-8.5 L 2885-2) Albumin (test code = 1751-7) 3.0 g/dL 4.0-5.0 L Globulin, Total (test code = 2.3 g/dL 1.5-4.5 31216-0) A/G Ratio (test code = 1759-0) 1.3 1.2-2.2 Bilirubin, Total (test code = 0.5 mg/dL 0.0-1.2 1975-2) Alkaline Phosphatase (test 95 IU/L 39-117 code = 6768-6) AST (SGOT) (test code = 16 IU/L 0-40 1920-8) ALT (SGPT) (test code = 23 IU/L 0-44 1742-6) [facility] Description: Comp. Metabolic Panel (2019-07-04 01:03:00 Test Item Value Reference Range Interpretation Comments Glucose (test code = 2345-7) 262 mg/dL 65-99 H BUN (test code = 3094-0) 27 mg/dL 6-24 H Creatinine (test code = 1.46 mg/dL 0.76-1.27 H 2160-0) eGFR If NonAfricn Am (test 57 mL/min/1.73 >59 L code = 21823-9) eGFR If Africn Am (test code = 66 mL/min/1.73 >59 80981-8) BUN/Creatinine Ratio (test 18 12-16 code = 3097-3) Sodium (test code = 2951-2) 140 mmol/L 134-144 Potassium (test code = 2823-3) 4.4 mmol/L 3.5-5.2 Chloride (test code = 2075-0) 106 mmol/L 96-106 Carbon Dioxide, Total (test 23 mmol/L 20-29 code = 2028-9) Calcium (test code = 91060-5) 8.7 mg/dL 8.7-10.2 Protein, Total (test code = 5.3 g/dL 6.0-8.5 L 2885-2) Albumin (test code = 1751-7) 3.0 g/dL 4.0-5.0 L Globulin, Total (test code = 2.3 g/dL 1.5-4.5 64100-9) A/G Ratio (test code = 1759-0) 1.3 1.2-2.2 Bilirubin, Total (test code = 0.5 mg/dL 0.0-1.2 1975-2) Alkaline Phosphatase (test 95 IU/L 39-117 code = 6768-6) AST (SGOT) (test code = 16 IU/L 0-40 1920-8) ALT (SGPT) (test code = 23 IU/L 0-44 1742-6) [facility] Description: Comp. Metabolic Panel (14)2019-07-04 01:03:00 Test Item Value Reference Range Interpretation Comments Glucose (test code = 2345-7) 262 mg/dL 65-99 H BUN (test code = 3094-0) 27 mg/dL 6-24 H Creatinine (test code = 1.46 mg/dL 0.76-1.27 H 2160-0) eGFR If NonAfricn Am (test 57 mL/min/1.73 >59 L code = 24883-1) eGFR If Africn Am (test code = 66 mL/min/1.73 >59 13570-7) BUN/Creatinine Ratio (test 12-16 code = 3097-3) Sodium (test code = 2951-2) 140 mmol/L 134-144 Potassium (test code = 2823-3) 4.4 mmol/L 3.5-5.2 Chloride (test code = 2075-0) 106 mmol/L 96-106 Carbon Dioxide, Total (test 23 mmol/L - code = 2027-) Calcium (test code = 64785-6) 8.7 mg/dL 8.7-10.2 Protein, Total (test code = 5.3 g/dL 6.0-8.5 L 2885-2) Albumin (test code = 1751-7) 3.0 g/dL 4.0-5.0 L Globulin, Total (test code = 2.3 g/dL 1.5-4.5 64934-0) A/G Ratio (test code = 1759-0) 1.3 1.2-2.2 Bilirubin, Total (test code = 0.5 mg/dL 0.0-1.2 1975-2) Alkaline Phosphatase (test 95 IU/L 39-117 code = 6768-6) AST (SGOT) (test code = 16 IU/L 0-40 1920-8) ALT (SGPT) (test code = 23 IU/L 0-44 1742-6) [facility] Description: Comp. Metabolic Panel (14)2019-07-04 01:03:00 Test Item Value Reference Range Interpretation Comments Glucose (test code = 2345-7) 262 mg/dL 65-99 H BUN (test code = 3094-0) 27 mg/dL 6-24 H Creatinine (test code = 1.46 mg/dL 0.76-1.27 H 2160-0) eGFR If NonAfricn Am (test 57 mL/min/1.73 >59 L code = 85587-5) eGFR If Africn Am (test code = 66 mL/min/1.73 >59 96290-2) BUN/Creatinine Ratio (test 18 - code = 3097-3) Sodium (test code = 2951-2) 140 mmol/L 134-144 Potassium (test code = 2823-3) 4.4 mmol/L 3.5-5.2 Chloride (test code = 2075-0) 106 mmol/L 96-106 Carbon Dioxide, Total (test 23 mmol/L - code = 2027-) Calcium (test code = 28783-1) 8.7 mg/dL 8.7-10.2 Protein, Total (test code = 5.3 g/dL 6.0-8.5 L 2885-2) Albumin (test code = 1751-7) 3.0 g/dL 4.0-5.0 L Globulin, Total (test code = 2.3 g/dL 1.5-4.5 53961-7) A/G Ratio (test code = 1759-0) 1.3 1.2-2.2 Bilirubin, Total (test code = 0.5 mg/dL 0.0-1.2 1975-2) Alkaline Phosphatase (test 95 IU/L 39-117 code = 6768-6) AST (SGOT) (test code = 16 IU/L 0-40 1920-8) ALT (SGPT) (test code = 23 IU/L 0-44 1742-6) [facility] Description: Comp. Metabolic Panel (142019-07-04 01:03:00 Test Item Value Reference Range Interpretation Comments Glucose (test code = 2345-7) 262 mg/dL 65-99 H BUN (test code = 3094-0) 27 mg/dL 6-24 H Creatinine (test code = 1.46 mg/dL 0.76-1.27 H 2160-0) eGFR If NonAfricn Am (test 57 mL/min/1.73 >59 L code = 00764-3) eGFR If Africn Am (test code = 66 mL/min/1.73 >59 19792-2) BUN/Creatinine Ratio (test 18 -20 code = 3097-3) Sodium (test code = 2951-2) 140 mmol/L 134-144 Potassium (test code = 2823-3) 4.4 mmol/L 3.5-5.2 Chloride (test code = 2075-0) 106 mmol/L 96-106 Carbon Dioxide, Total (test 23 mmol/L 20-29 code = 2027-9) Calcium (test code = 46357-3) 8.7 mg/dL 8.7-10.2 Protein, Total (test code = 5.3 g/dL 6.0-8.5 L 2885-2) Albumin (test code = 1751-7) 3.0 g/dL 4.0-5.0 L Globulin, Total (test code = 2.3 g/dL 1.5-4.5 78258-2) A/G Ratio (test code = 1759-0) 1.3 1.2-2.2 Bilirubin, Total (test code = 0.5 mg/dL 0.0-1.2 1975-2) Alkaline Phosphatase (test 95 IU/L 39-117 code = 6768-6) AST (SGOT) (test code = 16 IU/L 0-40 1920-8) ALT (SGPT) (test code = 23 IU/L 0-44 1742-6) [facility] Description: Comp. Metabolic Panel (14)2019-07-04 01:03:00 Test Item Value Reference Range Interpretation Comments Glucose (test code = 2345-7) 262 mg/dL 65-99 H BUN (test code = 3094-0) 27 mg/dL 6-24 H Creatinine (test code = 1.46 mg/dL 0.76-1.27 H 2160-0) eGFR If NonAfricn Am (test 57 mL/min/1.73 >59 L code = 78914-5) eGFR If Africn Am (test code = 66 mL/min/1.73 >59 36649-1) BUN/Creatinine Ratio (test 18 9-20 code = 3097-3) Sodium (test code = 2951-2) 140 mmol/L 134-144 Potassium (test code = 2823-3) 4.4 mmol/L 3.5-5.2 Chloride (test code = 2075-0) 106 mmol/L 96-106 Carbon Dioxide, Total (test 23 mmol/L 20-29 code = 2028-9) Calcium (test code = 24880-8) 8.7 mg/dL 8.7-10.2 Protein, Total (test code = 5.3 g/dL 6.0-8.5 L 2885-2) Albumin (test code = 1751-7) 3.0 g/dL 4.0-5.0 L Globulin, Total (test code = 2.3 g/dL 1.5-4.5 30551-1) A/G Ratio (test code = 1759-0) 1.3 1.2-2.2 Bilirubin, Total (test code = 0.5 mg/dL 0.0-1.2 1974-) Alkaline Phosphatase (test 95 IU/L 39-117 code = 6768-6) AST (SGOT) (test code = 16 IU/L 0-40 1920-8) ALT (SGPT) (test code = 23 IU/L 0-44 1742-6) [facility] Description: Comp. Metabolic Panel (2019-07-04 01:03:00 Test Item Value Reference Range Interpretation Comments Glucose (test code = 2345-7) 262 mg/dL 65-99 H BUN (test code = 3094-0) 27 mg/dL 6-24 H Creatinine (test code = 1.46 mg/dL 0.76-1.27 H 2160-0) eGFR If NonAfricn Am (test 57 mL/min/1.73 >59 L code = 90923-1) eGFR If Africn Am (test code = 66 mL/min/1.73 >59 62518-1) BUN/Creatinine Ratio (test 18 9-20 code = 3097-3) Sodium (test code = 2951-2) 140 mmol/L 134-144 Potassium (test code = 2823-3) 4.4 mmol/L 3.5-5.2 Chloride (test code = 2075-0) 106 mmol/L 96-106 Carbon Dioxide, Total (test 23 mmol/L 20-29 code = 2028-9) Calcium (test code = 43685-5) 8.7 mg/dL 8.7-10.2 Protein, Total (test code = 5.3 g/dL 6.0-8.5 L 2885-2) Albumin (test code = 1751-7) 3.0 g/dL 4.0-5.0 L Globulin, Total (test code = 2.3 g/dL 1.5-4.5 43277-6) A/G Ratio (test code = 1759-0) 1.3 1.2-2.2 Bilirubin, Total (test code = 0.5 mg/dL 0.0-1.2 1974-04) Alkaline Phosphatase (test 95 IU/L 39-117 code = 6768-6) AST (SGOT) (test code = 16 IU/L 0-40 1920-8) ALT (SGPT) (test code = 23 IU/L 0-44 1742-6) [facility] Description: Comp. Metabolic Panel (14)2019-07-04 01:03:00 Test Item Value Reference Range Interpretation Comments Glucose (test code = 2345-7) 262 mg/dL 65-99 H BUN (test code = 3094-0) 27 mg/dL 6-24 H Creatinine (test code = 1.46 mg/dL 0.76-1.27 H 2160-0) eGFR If NonAfricn Am (test 57 mL/min/1.73 >59 L code = 01746-9) eGFR If Africn Am (test code = 66 mL/min/1.73 >59 77951-9) BUN/Creatinine Ratio (test 18 9-20 code = 3097-3) Sodium (test code = 2951-2) 140 mmol/L 134-144 Potassium (test code = 2823-3) 4.4 mmol/L 3.5-5.2 Chloride (test code = 2075-0) 106 mmol/L 96-106 Carbon Dioxide, Total (test 23 mmol/L 20-29 code = 2028-9) Calcium (test code = 14081-4) 8.7 mg/dL 8.7-10.2 Protein, Total (test code = 5.3 g/dL 6.0-8.5 L 2885-2) Albumin (test code = 1751-7) 3.0 g/dL 4.0-5.0 L Globulin, Total (test code = 2.3 g/dL 1.5-4.5 56566-9) A/G Ratio (test code = 1759-0) 1.3 1.2-2.2 Bilirubin, Total (test code = 0.5 mg/dL 0.0-1.2 1975-2) Alkaline Phosphatase (test 95 IU/L 39-117 code = 6768-6) AST (SGOT) (test code = 16 IU/L 0-40 1920-8) ALT (SGPT) (test code = 23 IU/L 0-44 1742-6) [facility] Description: Comp. Metabolic Panel (14)2019-07-04 01:03:00 Test Item Value Reference Range Interpretation Comments Glucose (test code = 2345-7) 262 mg/dL 65-99 H BUN (test code = 3094-0) 27 mg/dL 6-24 H Creatinine (test code = 1.46 mg/dL 0.76-1.27 H 2160-0) eGFR If NonAfricn Am (test 57 mL/min/1.73 >59 L code = 35464-9) eGFR If Africn Am (test code = 66 mL/min/1.73 >59 69716-4) BUN/Creatinine Ratio (test 18 9-20 code = 3097-3) Sodium (test code = 2951-2) 140 mmol/L 134-144 Potassium (test code = 2823-3) 4.4 mmol/L 3.5-5.2 Chloride (test code = 2075-0) 106 mmol/L 96-106 Carbon Dioxide, Total (test 23 mmol/L 20-29 code = 2028-9) Calcium (test code = 74408-1) 8.7 mg/dL 8.7-10.2 Protein, Total (test code = 5.3 g/dL 6.0-8.5 L 2885-2) Albumin (test code = 1751-7) 3.0 g/dL 4.0-5.0 L Globulin, Total (test code = 2.3 g/dL 1.5-4.5 13445-2) A/G Ratio (test code = 1759-0) 1.3 1.2-2.2 Bilirubin, Total (test code = 0.5 mg/dL 0.0-1.2 1975-2) Alkaline Phosphatase (test 95 IU/L 39-117 code = 6768-6) AST (SGOT) (test code = 16 IU/L 0-40 1920-8) ALT (SGPT) (test code = 23 IU/L 0-44 1742-6) [facility] Description: Comp. Metabolic Panel (14)2019-07-04 01:03:00 Test Item Value Reference Range Interpretation Comments Glucose (test code = 2345-7) 262 mg/dL 65-99 H BUN (test code = 3094-0) 27 mg/dL 6-24 H Creatinine (test code = 1.46 mg/dL 0.76-1.27 H 2160-0) eGFR If NonAfricn Am (test 57 mL/min/1.73 >59 L code = 20417-4) eGFR If Africn Am (test code = 66 mL/min/1.73 >59 87476-0) BUN/Creatinine Ratio (test 12-16 code = 3097-3) Sodium (test code = 2951-2) 140 mmol/L 134-144 Potassium (test code = 2823-3) 4.4 mmol/L 3.5-5.2 Chloride (test code = 2075-0) 106 mmol/L 96-106 Carbon Dioxide, Total (test 23 mmol/L 20-29 code = 2028-9) Calcium (test code = 33695-3) 8.7 mg/dL 8.7-10.2 Protein, Total (test code = 5.3 g/dL 6.0-8.5 L 2885-2) Albumin (test code = 1751-7) 3.0 g/dL 4.0-5.0 L Globulin, Total (test code = 2.3 g/dL 1.5-4.5 79940-1) A/G Ratio (test code = 1759-0) 1.3 1.2-2.2 Bilirubin, Total (test code = 0.5 mg/dL 0.0-1.2 1975-2) Alkaline Phosphatase (test 95 IU/L 39-117 code = 6768-6) AST (SGOT) (test code = 16 IU/L 0-40 1920-8) ALT (SGPT) (test code = 23 IU/L 0-44 1742-6) [facility] Description: Comp. Metabolic Panel (14)2019-07-04 01:03:00 Test Item Value Reference Range Interpretation Comments Glucose (test code = 2345-7) 262 mg/dL 65-99 H BUN (test code = 3094-0) 27 mg/dL 6-24 H Creatinine (test code = 1.46 mg/dL 0.76-1.27 H 2160-0) eGFR If NonAfricn Am (test 57 mL/min/1.73 >59 L code = 27054-4) eGFR If Africn Am (test code = 66 mL/min/1.73 >59 99361-5) BUN/Creatinine Ratio (test 18 12-16 code = 3097-3) Sodium (test code = 2951-2) 140 mmol/L 134-144 Potassium (test code = 2823-3) 4.4 mmol/L 3.5-5.2 Chloride (test code = 2075-0) 106 mmol/L 96-106 Carbon Dioxide, Total (test 23 mmol/L 20-29 code = 2028-9) Calcium (test code = 16538-1) 8.7 mg/dL 8.7-10.2 Protein, Total (test code = 5.3 g/dL 6.0-8.5 L 2885-2) Albumin (test code = 1751-7) 3.0 g/dL 4.0-5.0 L Globulin, Total (test code = 2.3 g/dL 1.5-4.5 98203-2) A/G Ratio (test code = 1759-0) 1.3 1.2-2.2 Bilirubin, Total (test code = 0.5 mg/dL 0.0-1.2 1975-2) Alkaline Phosphatase (test 95 IU/L 39-117 code = 6768-6) AST (SGOT) (test code = 16 IU/L 0-40 1920-8) ALT (SGPT) (test code = 23 IU/L 0-44 1742-6) [facility] Description: Comp. Metabolic Panel (14)2019-07-04 01:03:00 Test Item Value Reference Range Interpretation Comments Glucose (test code = 2345-7) 262 mg/dL 65-99 H BUN (test code = 3094-0) 27 mg/dL 6-24 H Creatinine (test code = 1.46 mg/dL 0.76-1.27 H 2160-0) eGFR If NonAfricn Am (test 57 mL/min/1.73 >59 L code = 58767-5) eGFR If Africn Am (test code = 66 mL/min/1.73 >59 03826-4) BUN/Creatinine Ratio (test 12-16 code = 3097-3) Sodium (test code = 2951-2) 140 mmol/L 134-144 Potassium (test code = 2823-3) 4.4 mmol/L 3.5-5.2 Chloride (test code = 2075-0) 106 mmol/L 96-106 Carbon Dioxide, Total (test 23 mmol/L 20-29 code = 2028-9) Calcium (test code = 09294-0) 8.7 mg/dL 8.7-10.2 Protein, Total (test code = 5.3 g/dL 6.0-8.5 L 2885-2) Albumin (test code = 1751-7) 3.0 g/dL 4.0-5.0 L Globulin, Total (test code = 2.3 g/dL 1.5-4.5 89766-5) A/G Ratio (test code = 1759-0) 1.3 1.2-2.2 Bilirubin, Total (test code = 0.5 mg/dL 0.0-1.2 1975-2) Alkaline Phosphatase (test 95 IU/L 39-117 code = 6768-6) AST (SGOT) (test code = 16 IU/L 0-40 1920-8) ALT (SGPT) (test code = 23 IU/L 0-44 1742-6) [facility] Description: Hemoglobin A1c/Hemoglobin.total in Blood 2019-04-05 09:29:00 Test Item Value Reference Range Interpretation Comments Hemoglobin A1c (test code 9.9 % 4.8-5.6 H = 4548-4) . Prediabetes: 5. 7 - 6.4 Diabetes : >6.4 Glycemic control for adults with diabetes: <7.0

P erformed by:
[facility] ()

[facility] [employer] Description: Hemoglobin A1c/Hemoglobin.total in Blood 2019-04-05 09:29:00 Test Item Value Reference Range Interpretation Comments Hemoglobin A1c (test code 9.9 % 4.8-5.6 H = 4548-4) . Prediabetes: 5. 7 - 6.4 Diabetes : >6.4 Glycemic control for adults with diabetes: <7.0

P erformed by:
[facility] ([place])

[facility] Description: Hemoglobin A1c/Hemoglobin.total in Blood 2019-04-05 09:29:00 [...] with diabetes: <7.0

P erformed by:
[facility] ()

[facility] Description: Hemoglobin A1c/Hemoglobin.total in Blood 2019-04-05 09:29:00 Test Item Value Reference Range Interpretation Comments Hemoglobin A1c (test code 9.9 % 4.8-5.6 H = 4548-4) . Prediabetes: 5. 7 - 6.4 Diabetes : >6.4 Glycemic control for adults with diabetes: <7.0

P erformed by:
[facility] [employer] ([place])

[facility] Description: Hemoglobin A1c/Hemoglobin.total in [...] with diabetes: <7.0

P erformed by:
[facility] ([place])

[facility] [employer] Description: Hemoglobin A1c/Hemoglobin.total in Blood 2019-04-05 09:29:00 Test Item Value Reference Range Interpretation Comments Hemoglobin A1c (test code 9.9 % 4.8-5.6 H = 4548-4) . Prediabetes: 5. 7 - 6.4 Diabetes : >6.4 Glycemic control for adults with diabetes: <7.0

P erformed by:
[facility] ([place])

[facility] [employer] Description: Hemoglobin A1c/Hemoglobin.total in Blood 2019-04-05 09:29:00 Test Item Value Reference Range Interpretation Comments Hemoglobin A1c (test code 9.9 % 4.8-5.6 H = 4548-4) . Prediabetes: 5. 7 - 6.4 Diabetes : >6.4 Glycemic control for adults with diabetes: <7.0

P erformed by:
[facility] ()

[facility] [employer] Description: Lipid [id number] 02:47:00 Test Item Value Reference Range Interpretation Comments Cholesterol, Total (test code = 392 mg/dL 100-199 H 2093-3) Triglycerides (test code = 2571-8) 159 mg/dL 0-149 H HDL Cholesterol (test code = 42 mg/dL >39 2085-9) VLDL Cholesterol Renuka (test code = 32 mg/dL 5-40 24754-8) LDL Cholesterol Calc (test code = 318 mg/dL 0-99 H 59520-1) Comment: (test code = 92360-2) [employer] Description: Lipid [id number] 02:47:00 Test Item Value Reference Range Interpretation Comments Cholesterol, Total (test code = 392 mg/dL 100-199 H 2093-3) Triglycerides (test code = 2571-8) 159 mg/dL 0-149 H HDL Cholesterol (test code = 42 mg/dL >39 2085-9) VLDL Cholesterol Renuka (test code = 32 mg/dL 5-40 57845-6) LDL Cholesterol Calc (test code = 318 mg/dL 0-99 H 91328-2) Comment: (test code = 72785-7) [employer] Description: Lipid [id number] 02:47:00 Test Item Value Reference Range Interpretation Comments Cholesterol, Total (test code = 392 mg/dL 100-199 H 2093-3) Triglycerides (test code = 2571-8) 159 mg/dL 0-149 H HDL Cholesterol (test code = 42 mg/dL >39 2085-9) VLDL Cholesterol Renuka (test code = 32 mg/dL 5-40 79521-6) LDL Cholesterol Calc (test code = 318 mg/dL 0-99 H 19850-0) Comment: (test code = 19034-9) [employer] Description: Lipid [id number] 02:47:00 Test Item Value Reference Range Interpretation Comments Cholesterol, Total (test code = 392 mg/dL 100-199 H 2093-3) Triglycerides (test code = 2571-8) 159 mg/dL 0-149 H HDL Cholesterol (test code = 42 mg/dL >39 2085-9) VLDL Cholesterol Renuka (test code = 32 mg/dL 5-40 40395-9) LDL Cholesterol Calc (test code = 318 mg/dL 0-99 H 39600-5) Comment: (test code = 89628-0) [employer] Description: Lipid [id number] 02:47:00 Test Item Value Reference Range Interpretation Comments Cholesterol, Total (test code = 392 mg/dL 100-199 H 2093-3) Triglycerides (test code = 2571-8) 159 mg/dL 0-149 H HDL Cholesterol (test code = 42 mg/dL >39 2085-9) VLDL Cholesterol Renuka (test code = 32 mg/dL 5-40 76661-9) LDL Cholesterol Calc (test code = 318 mg/dL 0-99 H 49849-1) Comment: (test code = 23511-8) [employer] Description: Lipid [id number] 02:47:00 Test Item Value Reference Range Interpretation Comments Cholesterol, Total (test code = 392 mg/dL 100-199 H 2093-3) Triglycerides (test code = 2571-8) 159 mg/dL 0-149 H HDL Cholesterol (test code = 42 mg/dL >39 2085-9) VLDL Cholesterol Renuka (test code = 32 mg/dL 5-40 48094-7) LDL Cholesterol Calc (test code = 318 mg/dL 0-99 H 79747-1) Comment: (test code = 20735-5) [employer] Description: Lipid [id number] 02:47:00 Test Item Value Reference Range Interpretation Comments Cholesterol, Total (test code = 392 mg/dL 100-199 H 2093-3) Triglycerides (test code = 2571-8) 159 mg/dL 0-149 H HDL Cholesterol (test code = 42 mg/dL >39 2085-9) VLDL Cholesterol Renuka (test code = 32 mg/dL 5-40 10865-3) LDL Cholesterol Calc (test code = 318 mg/dL 0-99 H 75713-5) Comment: (test code = 82550-6) [employer] Description: Lipid [id number] 02:47:00 Test Item Value Reference Range Interpretation Comments Cholesterol, Total (test code = 392 mg/dL 100-199 H 2093-3) Triglycerides (test code = 2571-8) 159 mg/dL 0-149 H HDL Cholesterol (test code = 42 mg/dL >39 2085-9) VLDL Cholesterol Renuka (test code = 32 mg/dL 5-40 52925-4) LDL Cholesterol Calc (test code = 318 mg/dL 0-99 H 63828-9) Comment: (test code = 35547-7) [employer] Description: Lipid [id number] 02:47:00 Test Item Value Reference Range Interpretation Comments Cholesterol, Total (test code = 392 mg/dL 100-199 H 2093-3) Triglycerides (test code = 2571-8) 159 mg/dL 0-149 H HDL Cholesterol (test code = 42 mg/dL >39 2085-9) VLDL Cholesterol Renuka (test code = 32 mg/dL 5-40 57225-2) LDL Cholesterol Calc (test code = 318 mg/dL 0-99 H 58540-8) Comment: (test code = 66542-3) [employer] Description: Lipid [id number] 02:47:00 Test Item Value Reference Range Interpretation Comments Cholesterol, Total (test code = 392 mg/dL 100-199 H 2093-3) Triglycerides (test code = 2571-8) 159 mg/dL 0-149 H HDL Cholesterol (test code = 42 mg/dL >39 2085-9) VLDL Cholesterol Renuka (test code = 32 mg/dL 5-40 85349-3) LDL Cholesterol Calc (test code = 318 mg/dL 0-99 H 58417-6) Comment: (test code = 89559-4) [employer] Description: Lipid [id number] 02:47:00 Test Item Value Reference Range Interpretation Comments Cholesterol, Total (test code = 392 mg/dL 100-199 H 2093-3) Triglycerides (test code = 2571-8) 159 mg/dL 0-149 H HDL Cholesterol (test code = 42 mg/dL >39 2085-9) VLDL Cholesterol Renuka (test code = 32 mg/dL 5-40 37386-5) LDL Cholesterol Calc (test code = 318 mg/dL 0-99 H 42060-9) Comment: (test code = 75069-5) [employer] Description: Lipid [id number] 02:47:00 Test Item Value Reference Range Interpretation Comments Cholesterol, Total (test code = 392 mg/dL 100-199 H 2093-3) Triglycerides (test code = 2571-8) 159 mg/dL 0-149 H HDL Cholesterol (test code = 42 mg/dL >39 2085-9) VLDL Cholesterol Renuka (test code = 32 mg/dL 5-40 50479-2) LDL Cholesterol Calc (test code = 318 mg/dL 0-99 H 96265-9) Comment: (test code = 46805-9) [employer] Description: Lipid [id number] 02:47:00 Test Item Value Reference Range Interpretation Comments Cholesterol, Total (test code = 392 mg/dL 100-199 H 2093-3) Triglycerides (test code = 2571-8) 159 mg/dL 0-149 H HDL Cholesterol (test code = 42 mg/dL >39 2085-9) VLDL Cholesterol Renuka (test code = 32 mg/dL 5-40 84200-5) LDL Cholesterol Calc (test code = 318 mg/dL 0-99 H 15453-3) Comment: (test code = 42681-9) [employer] Description: Lipid [id number] 02:47:00 Test Item Value Reference Range Interpretation Comments Cholesterol, Total (test code = 392 mg/dL 100-199 H 2093-3) Triglycerides (test code = 2571-8) 159 mg/dL 0-149 H HDL Cholesterol (test code = 42 mg/dL >39 2085-9) VLDL Cholesterol Ren[place] (test code = 32 mg/dL 5-40 24003-5) LDL Cholesterol Calc (test code = 318 mg/dL 0-99 H 81871-4) Comment: (test code = 24383-9) [employer] Description: Lipid [id number] 02:47:00 Test Item Value Reference Range Interpretation Comments Cholesterol, Total (test code = 392 mg/dL 100-199 H 2093-3) Triglycerides (test code = 2571-8) 159 mg/dL 0-149 H HDL Cholesterol (test code = 42 mg/dL >39 2085-9) VLDL Cholesterol Renuka (test code = 32 mg/dL 5-40 83872-9) LDL Cholesterol Calc (test code = 318 mg/dL 0-99 H 79968-3) Comment: (test code = 61291-2) [employer] Description: Lipid [id number] 02:47:00 Test Item Value Reference Range Interpretation Comments Cholesterol, Total (test code = 392 mg/dL 100-199 H 2093-3) Triglycerides (test code = 2571-8) 159 mg/dL 0-149 H HDL Cholesterol (test code = 42 mg/dL >39 2085-9) VLDL Cholesterol Renuka (test code = 32 mg/dL 5-40 21787-0) LDL Cholesterol Calc (test code = 318 mg/dL 0-99 H 80399-3) Comment: (test code = 18463-0) [employer] Description: Lipid [id number] 02:47:00 Test Item Value Reference Range Interpretation Comments Cholesterol, Total (test code = 392 mg/dL 100-199 H 2093-3) Triglycerides (test code = 2571-8) 159 mg/dL 0-149 H HDL Cholesterol (test code = 42 mg/dL >39 2085-9) VLDL Cholesterol Renuka (test code = 32 mg/dL 5-40 74577-7) LDL Cholesterol Calc (test code = 318 mg/dL 0-99 H 92529-9) Comment: (test code = 11115-5) [employer] Description: Lipid [id number] 02:47:00 Test Item Value Reference Range Interpretation Comments Cholesterol, Total (test code = 392 mg/dL 100-199 H 2093-3) Triglycerides (test code = 2571-8) 159 mg/dL 0-149 H HDL Cholesterol (test code = 42 mg/dL >39 2085-9) VLDL Cholesterol Renuka (test code = 32 mg/dL 5-40 49289-8) LDL Cholesterol Calc (test code = 318 mg/dL 0-99 H 29946-0) Comment: (test code = 76221-3) [employer] Description: Comp. Metabolic Panel (14)2019-04-05 02:37:00 Test Item Value Reference Range Interpretation Comments Glucose (test code = 219 mg/dL 65-99 H 2345-7) BUN (test code = 44 mg/dL 6-24 H 3094-0) Creatinine (test code 1.51 mg/dL 0.76-1.27 H = 2160-0) eGFR If NonAfricn Am 55 mL/min/1.73 >59 L (test code = 79207-1) eGFR If Africn Am 64 mL/min/1.73 >59 (test code = 68386-3) BUN/Creatinine Ratio 29 9-20 H (test code = 3097-3) Sodium (test code = 139 mmol/L 455-856 5329-2) Potassium (test code 4.4 mmol/L 3.5-5.2 = 2823-3) Chloride (test code = 99 mmol/L 96-106 2075-0) Carbon Dioxide, Total 28 mmol/L 20-29 (test code = 2027-9) Calcium (test code = 8.9 mg/dL 8.7-10.2 83868-7) Protein, Total (test 6.1 g/dL 6.0-8.5 code [...] - 4.6

Pe rfo rmed by:
[facility] ([place])

Globulin, Total (test 2.8 g/dL 1.5-4.5 code = 30604-5) A/G Ratio (test code 1.2 1.2-2.2 = 1759-0) Bilirubin, Total 0.5 mg/dL 0.0-1.2 (test code = 1975-2) Alkaline Phosphatase 100 IU/L 39-117 (test code = 6768-6) AST (SGOT) (test code 22 IU/L 0-40 = 1920-8) ALT (SGPT) (test code 27 IU/L 0-44 = 1742-6) [facility] Description: Comp. Metabolic Panel (2019-04-05 02:37:00 Test Item Value Reference Range Interpretation Comments Glucose (test code = 219 mg/dL 65-99 H 2345-7) BUN (test code = 44 mg/dL 6-24 H 3094-0) Creatinine (test code 1.51 mg/dL 0.76-1.27 H = 2160-0) eGFR If NonAfricn Am 55 mL/min/1.73 >59 L (test code = 14434-8) eGFR If Africn Am 64 mL/min/1.73 >59 (test code = 40751-6) BUN/Creatinine Ratio 29 9-20 H (test code = 3097-3) Sodium (test code = 139 mmol/L 974-108 1241-2) Potassium (test code 4.4 mmol/L 3.5-5.2 = 2823-3) Chloride (test code = 99 mmol/L 96-106 2075-0) Carbon Dioxide, Total 28 mmol/L 20-29 (test code = 2027-9) Calcium (test code = 8.9 mg/dL 8.7-10.2 31248-2) Protein, Total (test 6.1 g/dL 6.0-8.5 code [...] Total (test 2.8 g/dL 1.5-4.5 code = 62256-2) A/G Ratio (test code 1.2 1.2-2.2 = 1759-0) Bilirubin, Total 0.5 mg/dL 0.0-1.2 (test code = 1975-2) Alkaline Phosphatase 100 IU/L 39-117 (test code = 6768-6) AST (SGOT) (test code 22 IU/L 0-40 = 1920-8) ALT (SGPT) (test code 27 IU/L 0-44 = 1742-6) [facility] Description: Comp. Metabolic Panel (14)2019-04-05 02:37:00 Test Item Value Reference Range Interpretation Comments Glucose (test code = 219 mg/dL 65-99 H 2345-7) BUN (test code = 44 mg/dL 6-24 H 3094-0) Creatinine (test code 1.51 mg/dL 0.76-1.27 H = 2160-0) eGFR If NonAfricn Am 55 mL/min/1.73 >59 L (test code = 07644-8) eGFR If Africn Am 64 mL/min/1.73 >59 (test code = 66463-3) BUN/Creatinine Ratio 29 9-20 H (test code = 3097-3) Sodium (test code = 139 mmol/L 298-861 4013-2) Potassium (test code 4.4 mmol/L 3.5-5.2 = 2823-3) Chloride (test code = 99 mmol/L 96-106 5-0) Carbon Dioxide, Total 28 mmol/L 20-29 (test code = 2027-9) Calcium (test code = 8.9 mg/dL 8.7-10.2 42494-3) Protein, Total (test 6.1 g/dL 6.0-8.5 code [...] Total (test 2.8 g/dL 1.5-4.5 code = 25984-2) A/G Ratio (test code 1.2 1.2-2.2 = 1759-0) Bilirubin, Total 0.5 mg/dL 0.0-1.2 (test code = 1975-2) Alkaline Phosphatase 100 IU/L 39-117 (test code = 6768-6) AST (SGOT) (test code 22 IU/L 0-40 = 1920-8) ALT (SGPT) (test code 27 IU/L 0-44 = 1742-6) [facility] Description: Comp. Metabolic Panel (14)2019-04-05 02:37:00 Test Item Value Reference Range Interpretation Comments Glucose (test code = 219 mg/dL 65-99 H 2345-7) BUN (test code = 44 mg/dL 6-24 H 3094-0) Creatinine (test code 1.51 mg/dL 0.76-1.27 H = 2160-0) eGFR If NonAfricn Am 55 mL/min/1.73 >59 L (test code = 38469-2) eGFR If Africn Am 64 mL/min/1.73 >59 (test code = 34539-2) BUN/Creatinine Ratio 29 9-20 H (test code = 3097-3) Sodium (test code = 139 mmol/L 806-592 0049-2) Potassium (test code 4.4 mmol/L 3.5-5.2 = 2823-3) Chloride (test code = 99 mmol/L 96-106 2075-0) Carbon Dioxide, Total 28 mmol/L 20-29 (test code = 2027-) Calcium (test code = 8.9 mg/dL 8.7-10.2 66943-3) Protein, Total (test 6.1 g/dL 6.0-8.5 code [...] Total (test 2.8 g/dL 1.5-4.5 code = 98838-5) A/G Ratio (test code 1.2 1.2-2.2 = 1759-0) Bilirubin, Total 0.5 mg/dL 0.0-1.2 (test code = 1975-2) Alkaline Phosphatase 100 IU/L 39-117 (test code = 6768-6) AST (SGOT) (test code 22 IU/L 0-40 = 1920-8) ALT (SGPT) (test code 27 IU/L 0-44 = 1742-6) [facility] Description: Comp. Metabolic Panel (14)2019-04-05 02:37:00 Test Item Value Reference Range Interpretation Comments Glucose (test code = 219 mg/dL 65-99 H 2345-7) BUN (test code = 44 mg/dL 6-24 H 3094-0) Creatinine (test code 1.51 mg/dL 0.76-1.27 H = 2160-0) eGFR If NonAfricn Am 55 mL/min/1.73 >59 L (test code = 01739-2) eGFR If Africn Am 64 mL/min/1.73 >59 (test code = 01182-3) BUN/Creatinine Ratio 29 9-20 H (test code = 3097-3) Sodium (test code = 139 mmol/L 748-775 8459-2) Potassium (test code 4.4 mmol/L 3.5-5.2 = 2823-3) Chloride (test code = 99 mmol/L 96-106 2075-0) Carbon Dioxide, Total 28 mmol/L 20-29 (test code = 2027-9) Calcium (test code = 8.9 mg/dL 8.7-10.2 27298-8) Protein, Total (test 6.1 g/dL 6.0-8.5 code [...] Total (test 2.8 g/dL 1.5-4.5 code = 48584-4) A/G Ratio (test code 1.2 1.2-2.2 = 1759-0) Bilirubin, Total 0.5 mg/dL 0.0-1.2 (test code = 1974-2) Alkaline Phosphatase 100 IU/L 39-117 (test code = 6768-6) AST (SGOT) (test code 22 IU/L 0-40 = 1920-8) ALT (SGPT) (test code 27 IU/L 0-44 = 1742-6) [facility] Description: Comp. Metabolic Panel (14)2019-04-05 02:37:00 Test Item Value Reference Range Interpretation Comments Glucose (test code = 219 mg/dL 65-99 H 2345-7) BUN (test code = 44 mg/dL 6-24 H 3094-0) Creatinine (test code 1.51 mg/dL 0.76-1.27 H = 2160-0) eGFR If NonAfricn Am 55 mL/min/1.73 >59 L (test code = 81356-4) eGFR If Africn Am 64 mL/min/1.73 >59 (test code = 86637-8) BUN/Creatinine Ratio 29 9-20 H (test code = 3097-3) Sodium (test code = 139 mmol/L 249-011 9211-2) Potassium (test code 4.4 mmol/L 3.5-5.2 = 2823-3) Chloride (test code = 99 mmol/L 96-106 5-0) Carbon Dioxide, Total 28 mmol/L 20-29 (test code = 2027-) Calcium (test code = 8.9 mg/dL 8.7-10.2 77048-6) Protein, Total (test 6.1 g/dL 6.0-8.5 code [...] - 4.6

Pe rfo rmed by:
[facility] ()

Globulin, Total (test 2.8 g/dL 1.5-4.5 code = 69579-7) A/G Ratio (test code 1.2 1.2-2.2 = 1759-0) Bilirubin, Total 0.5 mg/dL 0.0-1.2 (test code = 1975-2) Alkaline Phosphatase 100 IU/L 39-117 (test code = 6768-6) AST (SGOT) (test code 22 IU/L 0-40 = 1920-8) ALT (SGPT) (test code 27 IU/L 0-44 = 1742-6) [facility] Description: Comp. Metabolic Panel (142019-04-05 02:37:00 Test Item Value Reference Range Interpretation Comments Glucose (test code = 219 mg/dL 65-99 H 2345-7) BUN (test code = 44 mg/dL 6-24 H 3094-0) Creatinine (test code 1.51 mg/dL 0.76-1.27 H = 2160-0) eGFR If NonAfricn Am 55 mL/min/1.73 >59 L (test code = 05529-8) eGFR If Africn Am 64 mL/min/1.73 >59 (test code = 75683-9) BUN/Creatinine Ratio 29 9-20 H (test code = 3097-3) Sodium (test code = 139 mmol/L 843-591 7974-2) Potassium (test code 4.4 mmol/L 3.5-5.2 = 2823-3) Chloride (test code = 99 mmol/L 96-106 2075-0) Carbon Dioxide, Total 28 mmol/L 20-29 (test code = 2027-9) Calcium (test code = 8.9 mg/dL 8.7-10.2 81571-0) Protein, Total (test 6.1 g/dL 6.0-8.5 code [...] - 4.6

Pe rfo rmed by:
[facility] ([place])

Globulin, Total (test 2.8 g/dL 1.5-4.5 code = 66438-5) A/G Ratio (test code 1.2 1.2-2.2 = 1759-0) Bilirubin, Total 0.5 mg/dL 0.0-1.2 (test code = 1975-2) Alkaline Phosphatase 100 IU/L 39-117 (test code = 6768-6) AST (SGOT) (test code 22 IU/L 0-40 = 1920-8) ALT (SGPT) (test code 27 IU/L 0-44 = 1742-6) [facility] Description: Comp. Metabolic Panel (142019-04-05 02:37:00 Test Item Value Reference Range Interpretation Comments Glucose (test code = 219 mg/dL 65-99 H 2345-7) BUN (test code = 44 mg/dL 6-24 H 3094-0) Creatinine (test code 1.51 mg/dL 0.76-1.27 H = 2160-0) eGFR If NonAfricn Am 55 mL/min/1.73 >59 L (test code = 10764-8) eGFR If Africn Am 64 mL/min/1.73 >59 (test code = 21397-6) BUN/Creatinine Ratio 29 9-20 H (test code = 3097-3) Sodium (test code = 139 mmol/L 080-168 2139-2) Potassium (test code 4.4 mmol/L 3.5-5.2 = 2823-3) Chloride (test code = 99 mmol/L 96-106 2074-0) Carbon Dioxide, Total 28 mmol/L 20-29 (test code = 2027-11) Calcium (test code = 8.9 mg/dL 8.7-10.2 95740-3) Protein, Total (test 6.1 g/dL 6.0-8.5 code = 2885-2) Albumin (test code = 3.3 g/dL 3.5-5.5 L 1750-7) Effective April 17 0 Albumin reference interval [...] 4.6

Pe rfo rmed by:
[facility] ()

Globulin, Total (test 2.8 g/dL 1.5-4.5 code = 42461-7) A/G Ratio (test code 1.2 1.2-2.2 = 1759-0) Bilirubin, Total 0.5 mg/dL 0.0-1.2 (test code = 1974-2) Alkaline Phosphatase 100 IU/L 39-117 (test code = 6768-6) AST (SGOT) (test code 22 IU/L 0-40 = 1920-8) ALT (SGPT) (test code 27 IU/L 0-44 = 1742-6) [facility] Description: Comp. Metabolic Panel (14)2019-04-05 02:37:00 Test Item Value Reference Range Interpretation Comments Glucose (test code = 219 mg/dL 65-99 H 2345-7) BUN (test code = 44 mg/dL 6-24 H 3094-0) Creatinine (test code 1.51 mg/dL 0.76-1.27 H = 2160-0) eGFR If NonAfricn Am 55 mL/min/1.73 >59 L (test code = 05044-1) eGFR If Africn Am 64 mL/min/1.73 >59 (test code = 48476-7) BUN/Creatinine Ratio 29 9-20 H (test code = 3097-3) Sodium (test code = 139 mmol/L 654-038 3078-2) Potassium (test code 4.4 mmol/L 3.5-5.2 = 2823-3) Chloride (test code = 99 mmol/L 96-106 2075-0) Carbon Dioxide, Total 28 mmol/L 20-29 (test code = 2027-9) Calcium (test code = 8.9 mg/dL 8.7-10.2 65965-2) Protein, Total (test 6.1 g/dL 6.0-8.5 code [...] Total (test 2.8 g/dL 1.5-4.5 code = 46985-0) A/G Ratio (test code 1.2 1.2-2.2 = 1759-0) Bilirubin, Total 0.5 mg/dL 0.0-1.2 (test code = 1975-2) Alkaline Phosphatase 100 IU/L 39-117 (test code = 6768-6) AST (SGOT) (test code 22 IU/L 0-40 = 1920-8) ALT (SGPT) (test code 27 IU/L 0-44 = 1742-6) [facility] Description: Comp. Metabolic Panel (14)2019-04-05 02:37:00 Test Item Value Reference Range Interpretation Comments Glucose (test code = 219 mg/dL 65-99 H 2345-7) BUN (test code = 44 mg/dL 6-24 H 3094-0) Creatinine (test code 1.51 mg/dL 0.76-1.27 H = 2160-0) eGFR If NonAfricn Am 55 mL/min/1.73 >59 L (test code = 10634-9) eGFR If Africn Am 64 mL/min/1.73 >59 (test code = 75861-5) BUN/Creatinine Ratio 29 9-20 H (test code = 3097-3) Sodium (test code = 139 mmol/L 509-331 3694-2) Potassium (test code 4.4 mmol/L 3.5-5.2 = 2823-3) Chloride (test code = 99 mmol/L 96-106 2074-0) Carbon Dioxide, Total 28 mmol/L 20-29 (test code = 2027-) Calcium (test code = 8.9 mg/dL 8.7-10.2 58188-5) Protein, Total (test 6.1 g/dL 6.0-8.5 code = 2885-2) Albumin (test code = 3.3 g/dL 3.5-5.5 L 1750-7) Effective April 17 Albumin reference interval will [...] - 4.6

Pe rfo rmed by:
[facility] ([place])

Globulin, Total (test 2.8 g/dL 1.5-4.5 code = 97999-2) A/G Ratio (test code 1.2 1.2-2.2 = 1759-0) Bilirubin, Total 0.5 mg/dL 0.0-1.2 (test code = 1974-2) Alkaline Phosphatase 100 IU/L 39-117 (test code = 6768-6) AST (SGOT) (test code 22 IU/L 0-40 = 1920-8) ALT (SGPT) (test code 27 IU/L 0-44 = 1742-6) [facility] Description: Comp. Metabolic Panel (14)2019-04-05 02:37:00 Test Item Value Reference Range Interpretation Comments Glucose (test code = 219 mg/dL 65-99 H 2345-7) BUN (test code = 44 mg/dL 6-24 H 3094-0) Creatinine (test code 1.51 mg/dL 0.76-1.27 H = 2160-0) eGFR If NonAfricn Am 55 mL/min/1.73 >59 L (test code = 31385-0) eGFR If Africn Am 64 mL/min/1.73 >59 (test code = 07163-5) BUN/Creatinine Ratio 29 9-20 H (test code = 3097-3) Sodium (test code = 139 mmol/L 504-795 7249-2) Potassium (test code 4.4 mmol/L 3.5-5.2 = 2823-3) Chloride (test code = 99 mmol/L 96-106 2075-0) Carbon Dioxide, Total 28 mmol/L 20-29 (test code = 8-9) Calcium (test code = 8.9 mg/dL 8.7-10.2 09330-2) Protein, Total (test 6.1 g/dL 6.0-8.5 code [...] - 4.6

Pe rfo rmed by:
[facility] ([place])

Globulin, Total (test 2.8 g/dL 1.5-4.5 code = 80852-8) A/G Ratio (test code 1.2 1.2-2.2 = 1759-0) Bilirubin, Total 0.5 mg/dL 0.0-1.2 (test code = 1975-2) Alkaline Phosphatase 100 IU/L 39-117 (test code = 6768-6) AST (SGOT) (test code 22 IU/L 0-40 = 1920-8) ALT (SGPT) (test code 27 IU/L 0-44 = 1742-6) [facility] Description: Comp. Metabolic Panel (14)2019-04-05 02:37:00 Test Item Value Reference Range Interpretation Comments Glucose (test code = 219 mg/dL 65-99 H 2345-7) BUN (test code = 44 mg/dL 6-24 H 3094-0) Creatinine (test code 1.51 mg/dL 0.76-1.27 H = 2160-0) eGFR If NonAfricn Am 55 mL/min/1.73 >59 L (test code = 47115-9) eGFR If Africn Am 64 mL/min/1.73 >59 (test code = 00894-2) BUN/Creatinine Ratio 29 9-20 H (test code = 3097-3) Sodium (test code = 139 mmol/L 315-777 7486-2) Potassium (test code 4.4 mmol/L 3.5-5.2 = 2823-3) Chloride (test code = 99 mmol/L 96-106 2075-0) Carbon Dioxide, Total 28 mmol/L 20-29 (test code = 2027-) Calcium (test code = 8.9 mg/dL 8.7-10.2 86422-9) Protein, Total (test 6.1 g/dL 6.0-8.5 code [...] - 4.6

Pe rfo rmed by:
[facility] ()

Globulin, Total (test 2.8 g/dL 1.5-4.5 code = 42415-4) A/G Ratio (test code 1.2 1.2-2.2 = 1759-0) Bilirubin, Total 0.5 mg/dL 0.0-1.2 (test code = 1974-) Alkaline Phosphatase 100 IU/L 39-117 (test code = 6768-6) AST (SGOT) (test code 22 IU/L 0-40 = 1920-8) ALT (SGPT) (test code 27 IU/L 0-44 = 1742-6) [facility] Description: Comp. Metabolic Panel (142019-04-05 02:37:00 Test Item Value Reference Range Interpretation Comments Glucose (test code = 219 mg/dL 65-99 H 2345-7) BUN (test code = 44 mg/dL 6-24 H 3094-0) Creatinine (test code 1.51 mg/dL 0.76-1.27 H = 2160-0) eGFR If NonAfricn Am 55 mL/min/1.73 >59 L (test code = 34248-5) eGFR If Africn Am 64 mL/min/1.73 >59 (test code = 61047-8) BUN/Creatinine Ratio 29 9-20 H (test code = 3097-3) Sodium (test code = 139 mmol/L 568-458 4647-2) Potassium (test code 4.4 mmol/L 3.5-5.2 = 2823-3) Chloride (test code = 99 mmol/L 96-106 2075-0) Carbon Dioxide, Total 28 mmol/L 20-29 (test code = 2027-9) Calcium (test code = 8.9 mg/dL 8.7-10.2 01005-8) Protein, Total (test 6.1 g/dL 6.0-8.5 code [...] Total (test 2.8 g/dL 1.5-4.5 code = 90164-2) A/G Ratio (test code 1.2 1.2-2.2 = 1759-0) Bilirubin, Total 0.5 mg/dL 0.0-1.2 (test code = 1974-2) Alkaline Phosphatase 100 IU/L 39-117 (test code = 6768-6) AST (SGOT) (test code 22 IU/L 0-40 = 1920-8) ALT (SGPT) (test code 27 IU/L 0-44 = 1742-6) [facility] Description: Comp. Metabolic Panel (14)2019-04-05 02:37:00 Test Item Value Reference Range Interpretation Comments Glucose (test code = 219 mg/dL 65-99 H 2345-7) BUN (test code = 44 mg/dL 6-24 H 3094-0) Creatinine (test code 1.51 mg/dL 0.76-1.27 H = 2160-0) eGFR If NonAfricn Am 55 mL/min/1.73 >59 L (test code = 56867-5) eGFR If Africn Am 64 mL/min/1.73 >59 (test code = 36558-6) BUN/Creatinine Ratio 29 9-20 H (test code = 3097-3) Sodium (test code = 139 mmol/L 041-518 7757-2) Potassium (test code 4.4 mmol/L 3.5-5.2 = 2823-3) Chloride (test code = 99 mmol/L 96-106 2075-0) Carbon Dioxide, Total 28 mmol/L 20-29 (test code = 2027-9) Calcium (test code = 8.9 mg/dL 8.7-10.2 75373-7) Protein, Total (test 6.1 g/dL 6.0-8.5 code [...] - 4.6

Pe rfo rmed by:
[facility] ()

Globulin, Total (test 2.8 g/dL 1.5-4.5 code = 72476-3) A/G Ratio (test code 1.2 1.2-2.2 = 1759-0) Bilirubin, Total 0.5 mg/dL 0.0-1.2 (test code = 1974-2) Alkaline Phosphatase 100 IU/L 39-117 (test code = 6768-6) AST (SGOT) (test code 22 IU/L 0-40 = 1920-8) ALT (SGPT) (test code 27 IU/L 0-44 = 1742-6) [facility]: Comp[facility] Met[facility] (14)2019-04-05 02:37:00 Test Item Value Reference Range Interpretation Comments Glucose (test code = 219 mg/dL 65-99 H 2345-7) BUN (test code = 44 mg/dL 6-24 H 3094-0) Creatinine (test code 1.51 mg/dL 0.76-1.27 H = 2160-0) eGFR If NonAfricn Am 55 mL/min/1.73 >59 L (test code = 76945-7) eGFR If Africn Am 64 mL/min/1.73 >59 (test code = 30548-1) BUN/Creatinine Ratio 29 9-20 H (test code = 3097-3) Sodium (test code = 139 mmol/L 985-032 5692-2) Potassium (test code 4.4 mmol/L 3.5-5.2 = 2823-3) Chloride (test code = 99 mmol/L 96-106 2075-0) Carbon Dioxide, Total 28 mmol/L 20-29 (test code = 2027-9) Calcium (test code = 8.9 mg/dL 8.7-10.2 16958-8) Protein, Total (test 6.1 g/dL 6.0-8.5 code [...] Total (test 2.8 g/dL 1.5-4.5 code = 87642-2) A/G Ratio (test code 1.2 1.2-2.2 = 1759-0) Bilirubin, Total 0.5 mg/dL 0.0-1.2 (test code = 1974-2) Alkaline Phosphatase 100 IU/L 39-117 (test code = 6768-6) AST (SGOT) (test code 22 IU/L 0-40 = 1920-8) ALT (SGPT) (test code 27 IU/L 0-44 = 1742-6) [facility] Description: Comp. Metabolic Panel (14)2019-04-05 02:37:00 Test Item Value Reference Range Interpretation Comments Glucose (test code = 219 mg/dL 65-99 H 2345-7) BUN (test code = 44 mg/dL 6-24 H 3094-0) Creatinine (test code 1.51 mg/dL 0.76-1.27 H = 2160-0) eGFR If NonAfricn Am 55 mL/min/1.73 >59 L (test code = 73515-5) eGFR If Africn Am 64 mL/min/1.73 >59 (test code = 53045-4) BUN/Creatinine Ratio 29 9-20 H (test code = 3097-3) Sodium (test code = 139 mmol/L 867-727 1286-2) Potassium (test code 4.4 mmol/L 3.5-5.2 = 2823-3) Chloride (test code = 99 mmol/L 96-106 2075-0) Carbon Dioxide, Total 28 mmol/L 20-29 (test code = 2027-9) Calcium (test code = 8.9 mg/dL 8.7-10.2 19703-3) Protein, Total (test 6.1 g/dL 6.0-8.5 code [...] - 4.6

Pe rfo rmed by:
[facility] ([place])

Globulin, Total (test 2.8 g/dL 1.5-4.5 code = 18806-6) A/G Ratio (test code 1.2 1.2-2.2 = 1759-0) Bilirubin, Total 0.5 mg/dL 0.0-1.2 (test code = 1975-2) Alkaline Phosphatase 100 IU/L 39-117 (test code = 6768-6) AST (SGOT) (test code 22 IU/L 0-40 = 1920-8) ALT (SGPT) (test code 27 IU/L 0-44 = 1742-6) [facility] Description: Comp. Metabolic Panel (2019-04-05 02:37:00 Test Item Value Reference Range Interpretation Comments Glucose (test code = 219 mg/dL 65-99 H 2345-7) BUN (test code = 44 mg/dL 6-24 H 3094-0) Creatinine (test code 1.51 mg/dL 0.76-1.27 H = 2160-0) eGFR If NonAfricn Am 55 mL/min/1.73 >59 L (test code = 28901-2) eGFR If Africn Am 64 mL/min/1.73 >59 (test code = 17753-9) BUN/Creatinine Ratio 29 9-20 H (test code = 3097-3) Sodium (test code = 139 mmol/L 667-329 3378-2) Potassium (test code 4.4 mmol/L 3.5-5.2 = 2823-3) Chloride (test code = 99 mmol/L 96-106 2075-0) Carbon Dioxide, Total 28 mmol/L 20-29 (test code = 8-9) Calcium (test code = 8.9 mg/dL 8.7-10.2 04950-0) Protein, Total (test 6.1 g/dL 6.0-8.5 code [...] Total (test 2.8 g/dL 1.5-4.5 code = 39917-0) A/G Ratio (test code 1.2 1.2-2.2 = 1759-0) Bilirubin, Total 0.5 mg/dL 0.0-1.2 (test code = 1974-2) Alkaline Phosphatase 100 IU/L 39-117 (test code = 6768-6) AST (SGOT) (test code 22 IU/L 0-40 = 1920-8) ALT (SGPT) (test code 27 IU/L 0-44 = 1742-6) [facility]: [facility] (14)2019-04-05 02:37:00 Test Item Value Reference Range Interpretation Comments Glucose (test code = 219 mg/dL 65-99 H 2345-7) BUN (test code = 44 mg/dL 6-24 H 3094-0) Creatinine (test code 1.51 mg/dL 0.76-1.27 H = 2160-0) eGFR If NonAfricn Am 55 mL/min/1.73 >59 L (test code = 43225-2) eGFR If Africn Am 64 mL/min/1.73 >59 (test code = 26920-4) BUN/Creatinine Ratio 29 9-20 H (test code = 3097-3) Sodium (test code = 139 mmol/L 681-828 8125-2) Potassium (test code 4.4 mmol/L 3.5-5.2 = 2823-3) Chloride (test code = 99 mmol/L 96-106 2075-0) Carbon Dioxide, Total 28 mmol/L 20-29 (test code = 2027-9) Calcium (test code = 8.9 mg/dL 8.7-10.2 69051-6) Protein, Total (test 6.1 g/dL 6.0-8.5 code [...] - 4.6

Pe rfo rmed by:
[facility] (HD)

Globulin, Total (test 2.8 g/dL 1.5-4.5 code = 55480-4) A/G Ratio (test code 1.2 1.2-2.2 = 1759-0) Bilirubin, Total 0.5 mg/dL 0.0-1.2 (test code = 1975-2) Alkaline Phosphatase 100 IU/L 39-117 (test code = 6768-6) AST (SGOT) (test code 22 IU/L 0-40 = 1920-8) ALT (SGPT) (test code 27 IU/L 0-44 = 1742-6) [facility] STREP A [id number] 11:58:00 Test Item Value Reference Range Interpretation Comments STREP A ANTIGEN (BEAKER) (test code Negative = 556) POCT-GLUCOSE [id number] 22:44:00 Test Item Value Reference Range Interpretation Comments POC-GLUCOSE METER 431 mg/dL 70-[address] [facility] [address] (BEAKER) (test code [address] [facility] [place] = 1538) [address] POCT-GLUCOSE [id number] 22:44:00 Test Item Value Reference Range Interpretation Comments POC-GLUCOSE METER 455 mg/dL 70-[address] [facility] [address] (BEAKER) (test code [address] [facility] [place] = 1538) [address] URINALYSIS W/ REFLEX URINE [id number] 20:30:00 Test Item Value Reference Range Interpretation [...] code = 1663) SOURCE(BEAKER) (test code = 2155) COMPREHENSIVE METABOLIC [id number] 20:27:00 Test Item Value Reference Range Interpretation [...] S NOT APPLICABLE FOR DIALYSIS PATIEN TS. [id number] 20:27:00 Test Item Value Reference Range Interpretation Comments LIPASE (BEAKER) (test code = 749) 37 U/L 6-51 [id number] 20:23:00 Test Item Value Reference Range Interpretation [...] Information (Auto Output)CBC W/PLT COUNT & AUTO [id number] 20:11:00 Test Item Value Reference Range Interpretation [...] (BEAKER) (test code = 2801) BASIC METABOLIC [id number] 06:52:00 Test Item Value Reference Range Interpretation [...] NOT APPLICABLE FOR DIALYSIS PATIEN TS. POCT-GLUCOSE [id number] 05:58:00 Test Item Value Reference Range Interpretation Comments POC-GLUCOSE METER 222 mg/dL 70-110 H TESTED AT [address] ([place]) (test code [address] [place] = 1538) [address] POCT-GLUCOSE [id number] 20:37:00 Test Item Value Reference Range Interpretation Comments POC-GLUCOSE METER 157 mg/dL 70-110 H TESTED AT [address] ([place]) (test code [facility] [place] = 1538) [address] POCT-GLUCOSE [id number] 18:13:00 Test Item Value Reference Range Interpretation Comments POC-GLUCOSE METER 176 mg/dL 70-110 H TESTED AT [address] ([place]) (test code [facility] [place] = 1538) [address] POCT-GLUCOSE [id number] 12:16:00 Test Item Value Reference Range Interpretation Comments POC-GLUCOSE METER 161 mg/dL 70-[address] [facility] [address] (BEAKER) (test code [address] [facility] [place] = 1538) [address] BASIC METABOLIC [id number] 07:11:00 Test Item Value Reference Range Interpretation [...] PATIEN TS. CBC W/PLT COUNT & AUTO [id number] 06:27:00 Test Item Value Reference Range Interpretation [...] PERCENT (BEAKER) (test code = 2801) POCT-GLUCOSE [id number] 06:22:00 Test Item Value Reference Range Interpretation Comments POC-GLUCOSE METER 172 mg/dL 70-110 H TESTED AT [address] ([place]) (test code [facility] [place] = 1538) 750[address] POCT-GLUCOSE [id number] 20:27:00 Test Item Value Reference Range Interpretation Comments POC-GLUCOSE METER 209 mg/dL 70-110 H TESTED AT [address] ([facility]) (test code [facility] [place] = 1538) 200[address] POCT-GLUCOSE [id number] 18:12:00 Test Item Value Reference Range Interpretation Comments POC-GLUCOSE METER 192 mg/dL 70-110 H TESTED AT [address] (BEAKER) (test code [facility] [place] = 1538) [address] POCT-GLUCOSE [id number] 11:20:00 Test Item Value Reference Range Interpretation Comments POC-GLUCOSE METER 192 mg/dL 70-110 H TESTED AT [address] ([place]) (test code [facility] [place] = 1538) 13966 BASIC METABOLIC [id number] 07:02:00 Test Item Value Reference Range Interpretation [...] PATIEN TS. CBC W/PLT COUNT & AUTO [id number] 06:41:00 Test Item Value Reference Range Interpretation [...] PERCENT (BEAKER) (test code = 2801) POCT-GLUCOSE [id number] 06:13:00 Test Item Value Reference Range Interpretation Comments POC-GLUCOSE METER 134 mg/dL 70-110 H TESTED AT [address] ([place]) (test code [facility] [place] = 1538) 42076 POCT-GLUCOSE [id number] 21:38:00 Test Item Value Reference Range Interpretation Comments POC-GLUCOSE METER 114 mg/dL 70-110 H TESTED AT [address] (BEAKER) (test code [facility] [place] = 1538) 58724 POCT-GLUCOSE [id number] 16:58:00 Test Item Value Reference Range Interpretation Comments POC-GLUCOSE METER 294 mg/dL 70-[address] [facility] [address] (BEAKER) (test code [facility] [place] = 1538) 19484 POCT-GLUCOSE [id number] 12:03:00 Test Item Value Reference Range Interpretation Comments POC-GLUCOSE METER 157 mg/dL 70-[address] [facility] (BEAKER) (test code [facility] [place] = 1538) 55785 POCT-GLUCOSE [id number] 06:50:00 Test Item Value Reference Range Interpretation Comments POC-GLUCOSE METER 167 mg/dL 70-[address] [facility] (BEAKER) (test code [facility] [place] = 1538) 94[address] BASIC METABOLIC [id number] 05:07:00 Test Item Value Reference Range Interpretation [...] S NOT APPLICABLE FOR DIALYSIS PATIEN TS. [id number] 05:01:00 Test Item Value Reference Range Interpretation Comments MAGNESIUM (BEAKER) (test code = 2.0 mg/dL 1.5-3.0 627) CBC W/PLT COUNT & AUTO [id number] 04:43:00 Test Item Value Reference Range Interpretation [...] PERCENT (BEAKER) (test code = 2801) POCT-GLUCOSE [id number] 20:37:00 Test Item Value Reference Range Interpretation Comments POC-GLUCOSE METER 212 mg/dL 70-[address] [facility] ([facility]) (test code [facility] [place] = 1538) 33198 POCT-GLUCOSE [id number] 17:03:00 Test Item Value Reference Range Interpretation Comments POC-GLUCOSE METER 176 mg/dL 70-110 H TESTED AT [address] ([facility]) (test code [facility] [place] = 1538) 0[address] POCT-GLUCOSE [id number] 12:05:00 Test Item Value Reference Range Interpretation Comments POC-GLUCOSE METER 169 mg/dL 70-110 H TESTED AT [address] ([facility]) (test code [facility] [place] = 1538) 40523 POCT-GLUCOSE [id number] 09:25:00 Test Item Value Reference Range Interpretation Comments POC-GLUCOSE METER 148 mg/dL 70-110 H TESTED AT [address] ([facility]) (test code [facility] [place] = 1538) 37277 BASIC METABOLIC [id number] 06:32:00 Test Item Value Reference Range Interpretation [...] NOT APPLICABLE FOR DIALYSIS PATIEN TS. POCT-GLUCOSE [id number] 06:12:00 Test Item Value Reference Range Interpretation Comments POC-GLUCOSE METER 165 mg/dL 70-110 H TESTED AT [address] (BEAKER) (test code [facility] [place] = 1538) 039[address] CBC W/PLT COUNT & AUTO [id number] 06:00:00 Test Item Value Reference Range Interpretation [...] PERCENT (BEAKER) (test code = 2801) POCT-GLUCOSE [id number] 21:02:00 Test Item Value Reference Range Interpretation Comments POC-GLUCOSE METER 185 mg/dL 70-110 H TESTED AT [address] ([facility]) (test code [facility] [place] = 1538) 63809 POCT-GLUCOSE [id number] 16:21:00 Test Item Value Reference Range Interpretation Comments POC-GLUCOSE METER 141 mg/dL 70-110 H TESTED AT [address] ([facility]) (test code [facility] [place] = 1538) 47974 POCT-GLUCOSE [id number] 12:26:00 Test Item Value Reference Range Interpretation Comments POC-GLUCOSE METER 145 mg/dL 70-110 H TESTED AT [address] ([facility]) (test code [facility] [place] = 1538) 28965 POCT-GLUCOSE [id number] 06:43:00 Test Item Value Reference Range Interpretation Comments POC-GLUCOSE METER 170 mg/dL 70-110 H TESTED AT [address] ([facility]) (test code [facility] [place] = 1538) 47236 BASIC METABOLIC [id number] 06:39:00 Test Item Value Reference Range Interpretation [...] S NOT APPLICABLE FOR DIALYSIS PATIEN TS. [id number] 06:33:00 Test Item Value Reference Range Interpretation Comments MAGNESIUM (BEAKER) (test code = 1.9 mg/dL 1.5-3.0 627) CBC W/PLT COUNT & AUTO [id number] 06:10:00 Test Item Value Reference Range Interpretation [...] NEUTROPHILS ABSOLUTE COUNT 5.42 K/ L 1.80-8.00 ([facility]) (test code = 670) LYMPHOCYTES ABSOLUTE COUNT 1.54 K/ L 1.48-4.50 (AKER) (test code = 414) MONOCYTES ABSOLUTE COUNT (BEAKER) 0.77 K/ L 0.00-1.30 (test code = 415) EOSINOPHILS ABSOLUTE COUNT 0.31 K/ L 0.00-0.50 (BEAKER) (test code = 416) BASOPHILS ABSOLUTE COUNT (AKER) 0.08 K/ L 0.00-0.20 (test code = 417) IMMATURE GRANULOCYTES-RELATIVE 1 % 0-0 H PERCENT ([facility]) (test code = 2801) POCT-GLUCOSE [id number] 21:08:00 Test Item Value Reference Range Interpretation Comments POC-GLUCOSE METER 218 mg/dL 70-110 H TESTED AT [address] ([facility]) (test code [facility] [place] = 1538) 69387 POCT-GLUCOSE [id number] 16:36:00 Test Item Value Reference Range Interpretation Comments POC-GLUCOSE METER 142 mg/dL 70-110 H TESTED AT [address] ([facility]) (test code [facility] [place] = 1538) 42935 POCT-GLUCOSE [id number] 11:26:00 Test Item Value Reference Range Interpretation Comments POC-GLUCOSE METER 191 mg/dL 70-110 H TESTED AT [address] ([facility]) (test code [facility] [place] = 1538) 69035 VANCOMYCIN LEVEL, [id number] 09:08:00 Test Item Value Reference Range Interpretation Comments VANCOMYCIN TROUGH ([facility]) (test 17.9 ug/mL 10.0-20.0 code = 522) VANCOMYCIN DOSING BY RX - follow upTROUGH PRIOR TO DOSE ON 01/20/18 AT 8:30am COMPREHENSIVE METABOLIC [id number] 06:57:00 Test Item Value Reference Range Interpretation Comments TOTAL PROTEIN 5.9 gm/dL 6.0-8.5 L ([facility]) (test code = 770) ALBUMIN ([facility]) 2.9 g/dL 3.5-5.0 L (test code = 1145) ALKALINE PHOSPHATASE 90 U/L 30-115 ([facility]) (test code = 346) BILIRUBIN TOTAL 0.8 [...] NOT APPLICABLE FOR DIALYSIS PATIEN TS. POCT-GLUCOSE [id number] 06:33:00 Test Item Value Reference Range Interpretation Comments POC-GLUCOSE METER 226 mg/dL 70-110 H TESTED AT [address] ([place]) (test code [facility] [place] = 1538) [address]90 B-TYPE NATRIURETIC FACTOR (BNP)2018-01-20 06:00:00 Test Item Value Reference Range Interpretation Comments B-TYPE NATRIURETIC PEPTIDE (BEAKER) 371 pg/mL 0-100 H (test code = 700) CBC W/PLT COUNT & AUTO [id number] 05:40:00 Test Item Value Reference Range Interpretation [...] (BEAKER) (test code = 2801) BASIC METABOLIC [id number] 23:25:00 Test Item Value Reference Range Interpretation [...] S NOT APPLICABLE FOR DIALYSIS PATIEN TS. [id number] 23:19:00 Test Item Value Reference Range Interpretation Comments MAGNESIUM ([facility]) (test code = 1.9 mg/dL 1.5-3.0 627) POCT-GLUCOSE [id number] 21:12:00 Test Item Value Reference Range Interpretation Comments POC-GLUCOSE METER 237 mg/dL 70-110 H TESTED AT [address] ([facility]) (test code [facility] [place] = 1538) 63304 POCT-GLUCOSE [id number] 17:00:00 Test Item Value Reference Range Interpretation Comments POC-GLUCOSE METER 156 mg/dL 70-110 H TESTED AT [address] ([facility]) (test code [facility] [place] = 1538) 96594 POCT-GLUCOSE [id number] 12:51:00 Test Item Value Reference Range Interpretation Comments POC-GLUCOSE METER 135 mg/dL 70-110 H TESTED AT [address] ([facility]) (test code [facility] [place] = 1538) 37209 POCT-GLUCOSE [id number] 08:16:00 Test Item Value Reference Range Interpretation Comments POC-GLUCOSE METER 212 mg/dL 70-110 H TESTED AT [address] ([facility]) (test code [facility] [place] = 1538) 01402 VANCOMYCIN LEVEL, [id number] 21:00:00 Test Item Value Reference Range Interpretation Comments VANCOMYCIN TROUGH ([facility]) (test 14.3 ug/mL 10.0-20.0 code = 522) POCT-GLUCOSE [id number] 20:56:00 Test Item Value Reference Range Interpretation Comments POC-GLUCOSE METER 216 mg/dL 70-110 H TESTED AT [address] ([place]) (test code [facility] [place] = 1538) 07370 POCT-GLUCOSE [id number] 17:03:00 Test Item Value Reference Range Interpretation Comments POC-GLUCOSE METER 269 mg/dL 70-110 H TESTED AT [address] ([place]) (test code [facility] [place] = 1538) 08061 POCT-GLUCOSE [id number] 06:22:00 Test Item Value Reference Range Interpretation Comments POC-GLUCOSE METER 115 mg/dL 70-110 H TESTED AT [address] ([place]) (test code [facility] [place] = 1538) 18139 BASIC METABOLIC [id number] 04:43:00 Test Item Value Reference Range Interpretation [...] EGFR (BEAKER) (test 58 mL/min/1.73 ESTIMA JOSÉ LUSI GFR IS code = 1092) sq m NOT ACCURATE CREATININE CLEARANCE IN PREDICTING GLOMERULAR FILTRATION RATE . ESTIMATED GFR I S NOT APPLICABLE FOR DIALYSIS PATIEN TS. [id number] 04:37:00 Test Item Value Reference Range Interpretation Comments MAGNESIUM (BEAKER) (test code = 1.8 mg/dL 1.5-3.0 627) CBC W/PLT COUNT & AUTO [id number] 04:24:00 Test Item Value Reference Range Interpretation [...] IMMATURE GRANULOCYTES-RELATIVE 1 % 0-0 H PERCENT ([facility]) (test code = 2801) POCT-GLUCOSE [id number] 20:55:00 Test Item Value Reference Range Interpretation Comments POC-GLUCOSE METER 145 mg/dL 70-110 H TESTED AT [address] ([facility]) (test code [facility] [place] = 1538) 67202 VENOUS DOPPLER LEGS, [id number] 17:50:00Reason for exam:->r/o DVT FINAL REPORT Comparison: [...] the bilateral lower extremities. Signed: Gab Bonilla Verified Date/Time: 01/17/2018 17:50:07 Reading Location: [facility] Reading Room POCT-GLUCOSE [id number] 17:04:00 Test Item Value Reference Range Interpretation Comments POC-GLUCOSE METER 134 mg/dL 70-110 H TESTED AT [address] ([facility]) (test code [facility] [place] = 1538) 02489 POCT-GLUCOSE [id number] 11:54:00 Test Item Value Reference Range Interpretation Comments POC-GLUCOSE METER 219 mg/dL 70-110 H TESTED AT [address] ([facility]) (test code [facility] [place] = 1538) 13626 POCT-GLUCOSE [id number] 09:10:00 Test Item Value Reference Range Interpretation Comments POC-GLUCOSE METER 48 mg/dL 70-110 L TESTED AT [address] ([facility]) (test code = [address] [facility] [place] 1538) [address] BASIC METABOLIC [id number] 06:27:00 Test Item Value Reference Range Interpretation Comments SODIUM ([facility]) 140 meq/L 135-148 (test code = 381) POTASSIUM ([facility]) 3.8 meq/L 3.6-5.5 (test code = 379) [...] NOT APPLICABLE FOR DIALYSIS PATIEN TS. POCT-GLUCOSE [id number] 06:26:00 Test Item Value Reference Range Interpretation Comments POC-GLUCOSE METER 101 mg/dL 70-110 TESTED AT [address] ([facility]) (test code [facility] [place] = 1538) 17260 CBC W/PLT COUNT & AUTO [id number] 05:58:00 Test Item Value Reference Range Interpretation [...] PERCENT (BEAKER) (test code = 2801) TROPONIN [id number] 00:11:00 Test Item Value Reference Range Interpretation [...] = 700) RAD, CHEST, 1 VIEW, NON [id number] 00:09:00Reason for exam:->SHORTNESS OF BREATHReason for exam:->EDEMAReason for exam:->WEIGHT GAINShould this be performed at the bedside?->YesFINAL REPORT INDICATION: SHORTNESS OF BREATHEDEMAWEIGHT GAIN COMPARISON: December 07, 2017 TECHNIQUE: Single frontal view of the chest. FINDINGS: Lungs and pleura: Clear lungs. No effusion.Heart and mediastinum: Stable prominent cardiac size. Unremarkable mediastinal contours.Osseous structures: No acute abnormality.Other: None. IMPRESSION: No acute intrathoracic abnormality.Signed: JR Richy, Arcelia VANCEepradha Verified Date/Time: 01/17/2018 00:09:15 Reading Location:[facility] Body Reading Room BASIC METABOLIC [id number] 00:02:00 Test Item Value Reference Range Interpretation [...] PATIEN TS. CBC W/PLT COUNT & AUTO [id number] 23:35:00 Test Item Value Reference Range Interpretation [...] PERCENT (BEAKER) (test code = 2801) BLOOD [id number] 10:00:00 Test Item Value Reference Range Interpretation Comments CULTURE (BEAKER) (test No growth in 5 days code = 1095) BLOOD [id number] 10:00:00 Test Item Value Reference Range Interpretation Comments CULTURE (BEAKER) (test No growth in 5 days code = 1095) WOUND CULTURE + GRAM [id number] 10:10:00 Test Item Value Reference Interpretation Comments [...] (test code = cocci in pairs and 203731) clusters POCT-GLUCOSE [id number] 17:33:00 Test Item Value Reference Range Interpretation Comments POC-GLUCOSE METER 105 mg/dL 70-110 TESTED AT [address] (BEAKER) (test code [facility] [place] = 1538) 98887 URINALYSIS W/ REFLEX URINE [id number] 09:56:00 Test Item Value Reference Range Interpretation [...] 1663) SOURCE(BEAKER) (test code = 2795) POCT-GLUCOSE [id number] 08:36:00 Test Item Value Reference Range Interpretation Comments POC-GLUCOSE METER 162 mg/dL 70-110 H TESTED AT [address] (BEAKER) (test code [facility] [place] = 1538) 020[address] TSH/FREE T4 IF [id number] 07:04:00 Test Item Value Reference Range Interpretation Comments THYROID STIMULATING HORMONE 4.64 uIU/mL 0.35-5.50 (BEAKER) (test code = 772) LIPID [id number] 06:50:00 Test Item Value Reference Range Interpretation [...] 130-159 High 160-189 Very High >=190BASIC METABOLIC [id number] 06:48:00 Test Item Value Reference Range Interpretation [...] PATIEN TS. CBC W/PLT COUNT & AUTO [id number] 06:33:00 Test Item Value Reference Range Interpretation [...] PERCENT (BEAKER) (test code = 2801) HEMOGLOBIN [id number] 06:32:00 Test Item Value Reference Range Interpretation Comments HEMOGLOBIN A1C (BEAKER) (test code = 10.4 % 4.3-6.1 H 368) VENOUS DOPPLER LEGS, [id number] 05:53:00Reason for exam:->edema rule out DVT/ CellulitisFINAL [...] MDReport Verified Date/Time: 12/08/2017 05:53:51 Reading Location: [address] Body Reading Room TROPONIN [id number] 00:46:00 Test Item Value Reference Range Interpretation Comments TROPONIN I ([facility]) (test code = 0.03 ng/mL 0.00-0.15 397) [...] acidosis, acute neurological disease, and persistent tachyarrhythmia.POCT-GLUCOSE [id number] 21:14:00 Test Item Value Reference Range Interpretation Comments POC-GLUCOSE METER 221 mg/dL 70-110 H TESTED AT [address] ([facility]) (test code [facility] = 1538) 100[address] POCT-GLUCOSE [id number] 16:43:00 Test Item Value Reference Range Interpretation Comments POC-GLUCOSE METER 371 mg/dL 70-110 H TESTED AT [address] ([facility]) (test code [facility] = 1538) 12664 CREATINE KINASE (CK), TOTAL AND [id number] 14:26:00 Test Item Value Reference Range Interpretation Comments CREATINE KINASE TOTAL ([facility]) 366 U/L 40-250 H (test code = 380) CREATINE KINASE-MB ([facility]) (test 8.1 ng/mL 0.0-4.9 H code = 750) CREATINE KINASE-MB INDEX ([facility]) 2.2 % (test code = 395) CK-MB Reference Range:<5 Normal5-10 Borderline>10 AbnormalTROPONIN I 2017-12-07 14:08:00 Test Item Value Reference Range Interpretation Comments TROPONIN I ([facility]) (test code = 0.03 ng/mL 0.00-0.15 397) [...] acute neurological disease, and persistent tachyarrhythmia.BASIC METABOLIC [id number] 14:00:00 Test Item Value Reference Range Interpretation [...] S NOT APPLICABLE FOR DIALYSIS PATIEN TS. [id number] 13:54:00 Test Item Value Reference Range Interpretation Comments MAGNESIUM (BEAKER) 2.1 mg/dL 1.5-3.0 Specimen slightly (test code = 627) hemolyzed B-TYPE NATRIURETIC FACTOR (BNP)2017-12-07 13:48:00 Test Item Value Reference Range Interpretation Comments B-TYPE NATRIURETIC PEPTIDE (BEAKER) 520 pg/mL 0-100 H (test code = 700) [id number] 13:19:00 Test Item Value Reference Range Interpretation [...] Information (Auto Output)CBC W/PLT COUNT & AUTO [id number] 13:07:00 Test Item Value Reference Range Interpretation [...] = 2801) RAD, CHEST, 1 VIEW, NON [id number] 12:44:00Reason for exam:->CHEST PAIN FINAL REPORT Chest [...] MDReport Verified Date/Time: 12/07/2017 12:44:27 Reading Location: [address] Radiology Reading Room CREATINE KINASE (CK), TOTAL AND [id number] 02:36:00 Test Item Value Reference Range Interpretation [...] acute neurological disease, and persistent tachyarrhythmia.COMPREHENSIVE METABOLIC [id number] 02:28:00 Test Item Value Reference Range Interpretation [...] PATIEN TS. CBC W/PLT COUNT & AUTO [id number] 02:14:00 Test Item Value Reference Range Interpretation [...] H PERCENT (BEAKER) (test code = 2801) [facility], [id number] 01:55:00 Test Item Value Reference Range Interpretation Comments KETONES, BLOOD (BEAKER) (test code 0.2 mmol/L <0.4 = 1103) RAD, CHEST, 1 VIEW, NON [id number] 01:46:00Reason for exam:->pacemaker placement,pt feels it was [...] pneumothorax or acute bony abnormality. Signed: Shraddha Stanleyort Verified Date/Time: 11/27/2017 01:46:38 Reading Location: [address] Reading Room POCT-GLUCOSE [id number] 13:29:00 Test Item Value Reference Range Interpretation Comments POC-GLUCOSE METER 214 mg/dL 70-110 H TESTED AT [address] (BEAKER) (test code [facility] [place] = 1538) [address] BASIC METABOLIC [id number] 06:48:00 Test Item Value Reference Range Interpretation [...] PATIEN TS. CBC W/PLT COUNT & AUTO [id number] 06:23:00 Test Item Value Reference Range Interpretation [...] (test code = 416) BASOPHILS ABSOLUTE COUNT ([facility]) 0.10 K/ L 0.00-0.20 (test code = 417) POCT-GLUCOSE [id number] 06:20:00 Test Item Value Reference Range Interpretation Comments POC-GLUCOSE METER 184 mg/dL 70-110 H TESTED AT [address] ([facility]) (test code [facility] [place] = 1538) [address] POCT-GLUCOSE [id number] 20:47:00 Test Item Value Reference Range Interpretation Comments POC-GLUCOSE METER 323 mg/dL 70-110 H Notified R Live SCHULER/TESTED AT ([facility]) (test code [address] POINT = 1538) [address] [facility] [address] POCT-GLUCOSE [id number] 16:55:00 Test Item Value Reference Range Interpretation Comments POC-GLUCOSE METER 320 mg/dL 70-110 H TESTED AT [address] ([facility]) (test code [facility] [place] = 1538) [address] B-TYPE NATRIURETIC FACTOR (BNP)2017-09-08 11:28:00 Test Item Value Reference Range Interpretation Comments B-TYPE NATRIURETIC PEPTIDE ([facility]) 800 pg/mL 0-100 H (test code = 700) TROPONIN [id number] 11:25:00 Test Item Value Reference Range Interpretation Comments TROPONIN I ([facility]) (test code = 397) < ng/mL 0.00-0.15 [...] acute neurological disease, and persistent tachyarrhythmia.BASIC METABOLIC [id number] 11:17:00 Test Item Value Reference Range Interpretation [...] S NOT APPLICABLE FOR DIALYSIS PATIEN TS. [id number] 11:15:00 Test Item Value Reference Range Interpretation [...] (Auto Output)Final Information (Auto Output)Final Information (Auto Output)[id number] 11:11:00 Test Item Value Reference Range Interpretation Comments MAGNESIUM (BEAKER) (test code = 2.0 mg/dL 1.5-3.0 627) RAD, CHEST, 1 VIEW, NON [id number] 10:55:00Reason for exam:->chest pain FINAL REPORT CLINICAL HISTORY: chest pain TECHNIQUE: 1 view of the chest. COMPARISON: 06/10/2017 IMPRESSION: There is new pulmonary vascular congestion without lobar consolidation. There is blunting of the left costophrenic angle. The cardiomediastinal silhouette is magnified bytechnique with a pacemaker. Signed: Sia Hensley MDReport Verified Date/Time: 09/08/2017 10:55:33Reading Location: [facility] Radiology Reading Room CBC W/PLT COUNT & AUTO [id number] 10:47:00 Test Item Value Reference Range Interpretation [...] 0.00-0.20 (test code = 417) HIV-1 PCR, [id number] 05:37:00 Test Item Value Reference Range Interpretation Comments HIV-1 RESULT HIV RNA not detected HIV RNA not detected COMPONENT (BEAKER) (test code = 2703) This test uses a Real-Time Polymerase Chain Reaction (RT-PCR) methodology to detect a highly conserved region of the HIV-1 gag gene and was performed using the [employer]ER AmpliPrep/JENNIFER TaqMan HIV-1 test kit version 2.0 ([employer]Reportable range for this assay is 20 - 10,000,000 copies per mL (1.3 - 7.0 Log copies/mL).DOUBLE-STRANDED DNA (DSDNA) [id number] 10:04:00 Test Item Value Reference Range Interpretation Comments ANTI-DNA DS (BEAKER) (test code = Negative 1055) TIFF TITER AND [id number] 11:54:00 Test Item Value Reference Range Interpretation Comments TIFF TITER (BEAKER) (test code = :160 1541) TIFF PATTERN (BEAKER) (test code = Homogeneous 1781) ANTI-NUCLEAR ANTIBODY (TIFF)2017-06-14 11:53:00 Test Item Value Reference Range Interpretation Comments ANTI-NUCLEAR ANTIBODY (TIFF) (BEAKER) Positive Negative A (test code = 418) POCT-GLUCOSE [id number] 05:52:00 Test Item Value Reference Range Interpretation Comments POC-GLUCOSE METER 96 mg/dL 70-[address] [facility] [address] (BEAKER) (test code = [address] [facility] SERVICES 1538) 30335 BASIC METABOLIC [id number] 05:15:00 Test Item Value Reference Range Interpretation Comments SODIUM (BEAKER) 141 meq/L 135-148 (test code = 381) POTASSIUM (BEAKER) 3.5 meq/L 3.6-5.5 L (test code = 379) CHLORIDE (BEAKER) 98 meq/L 98-106 (test code = 382) CO2 (BEAKER) (test 34 meq/L 20-29 H code = 355) BLOOD UREA NITROGEN 28 mg/dL 10-26 H ([facility]) (test code = 354) CREATININE ([facility]) 1.30 mg/dL 0.50-1.20 H (test code = 358) GLUCOSE RANDOM 66 mg/dL 70-110 L ([facility]) (test code = 652) CALCIUM ([facility]) 9.0 mg/dL 8.5-10.5 (test code = 697) EGFR ([facility]) (test 60 mL/min/1.73 ESTIMA JOSÉ LUIS GFR IS code = 1092) sq m NOT ACCURATE CREATININE CLEARANCE IN PREDICTING GLOMERULAR FILTRATION RATE . ESTIMATED GFR I S NOT APPLICABLE FOR DIALYSIS PATIEN TS. POCT-GLUCOSE [id number] 05:09:00 Test Item Value Reference Range Interpretation Comments POC-GLUCOSE METER 67 mg/dL 70-110 L TESTED AT [address] ([facility]) (test code = [facility] 1538) 04066 POCT-GLUCOSE [id number] 21:55:00 Test Item Value Reference Range Interpretation Comments POC-GLUCOSE METER 142 mg/dL 70-110 H TESTED AT [address] ([facility]) (test code [facility] [place] = 1538) 11153 POCT-GLUCOSE [id number] 19:05:00 Test Item Value Reference Range Interpretation Comments POC-GLUCOSE METER 139 mg/dL 70-110 H TESTED AT [address] ([facility]) (test code [facility] [place] = 1538) 18050 POCT-GLUCOSE [id number] 16:54:00 Test Item Value Reference Range Interpretation Comments POC-GLUCOSE METER 59 mg/dL 70-110 L TESTED AT [address] ([facility]) (test code = [facility] [place] 1538) 49594 POCT-GLUCOSE [id number] 13:19:00 Test Item Value Reference Range Interpretation Comments POC-GLUCOSE METER 235 mg/dL 70-110 H TESTED AT [address] ([facility]) (test code [facility] [place] = 1538) 579[address] POCT-GLUCOSE [id number] 06:52:00 Test Item Value Reference Range Interpretation Comments POC-GLUCOSE METER 113 mg/dL 70-110 H TESTED AT [address] ([facility]) (test code [facility] [place] = 1538) 15900 POCT-GLUCOSE [id number] 21:48:00 Test Item Value Reference Range Interpretation Comments POC-GLUCOSE METER 183 mg/dL 70-110 H TESTED AT [address] ([facility]) (test code [facility] [place] = 1538) 73829 POCT-GLUCOSE [id number] 17:22:00 Test Item Value Reference Range Interpretation Comments POC-GLUCOSE METER 262 mg/dL 70-110 H TESTED AT [address] ([facility]) (test code [facility] [place] = 1538) 73758 POCT-GLUCOSE [id number] 12:30:00 Test Item Value Reference Range Interpretation Comments POC-GLUCOSE METER 131 mg/dL 70-110 H TESTED AT [address] ([facility]) (test code [facility] [place] = 1538) 28[address] MICROALBUMIN, RANDOM [id number] 12:25:00 Test Item Value Reference Range Interpretation Comments MICROALBUMIN URINE ([facility]) (test 59.0 mg/dL code = 1794) Reference Range: No NormalsHEPATITIS PANEL, [id number] 11:31:00 Test Item Value Reference Range Interpretation Comments HEPATITIS A IGM ANTIBODY (BEAKER) Nonreactive Nonreactive (test code = 498) HEPATITIS B CORE IGM ANTIBODY Nonreactive Nonreactive (BEAKER) (test code = 645) HEPATITIS C ANTIBODY (BEAKER) Nonreactive Nonreactive (test code = 367) HEPATITIS B SURFACE ANTIGEN (2) Nonreactive Nonreactive (BEAKER) (test code = 2585) COMPLEMENT COMPONENT [id number] 11:09:00 Test Item Value Reference Range Interpretation Comments C4 COMPLEMENT (BEAKER) (test code = 28 mg/dL 15-57 394) COMPLEMENT COMPONENT [id number] 11:09:00 Test Item Value Reference Range Interpretation Comments C3 COMPLEMENT (BEAKER) (test code = 145 mg/dL 82-193 393) POCT-GLUCOSE [id number] 06:48:00 Test Item Value Reference Range Interpretation Comments POC-GLUCOSE METER 75 mg/dL 70-110 TESTED AT [address] (BEAKER) (test code = [address] [facility] [facility] 1538) 12223 TROPONIN [id number] 05:58:00 Test Item Value Reference Range Interpretation [...] acute neurological disease, and persistent tachyarrhythmia.BASIC METABOLIC [id number] 05:49:00 Test Item Value Reference Range Interpretation [...] S NOT APPLICABLE FOR DIALYSIS PATIEN TS. [id number] 05:48:00 Test Item Value Reference Range Interpretation Comments PHOSPHORUS (BEAKER) (test code = 4.2 mg/dL 2.5-4.5 604) POCT-GLUCOSE [id number] 21:18:00 Test Item Value Reference Range Interpretation Comments POC-GLUCOSE METER 146 mg/dL 70-[address] [facility] (BEAKER) (test code [address] [facility] = 1538) [address] TROPONIN [id number] 18:26:00 Test Item Value Reference Range Interpretation [...] acidosis, acute neurological disease, and persistent tachyarrhythmia.POCT-GLUCOSE [id number] 17:07:00 Test Item Value Reference Range Interpretation Comments POC-GLUCOSE METER 97 mg/dL 70-110 TESTED AT [address] ([facility]) (test code = [address] [facility] 1538) 40057 POCT-GLUCOSE [id number] 13:31:00 Test Item Value Reference Range Interpretation Comments POC-GLUCOSE METER 125 mg/dL 70-110 H TESTED AT [address] ([facility]) (test code [address] [facility] = 1538) 34444 TROPONIN [id number] 06:11:00 Test Item Value Reference Range Interpretation Comments TROPONIN I ([facility]) (test code = 397) < ng/mL 0.00-0.15 [...] acidosis, acute neurological disease, and persistent tachyarrhythmia.LIPID [id number] 06:05:00 Test Item Value Reference Range Interpretation Comments TRIGLYCERIDES (BEAKER) (test code = 75 mg/dL 540) CHOLESTEROL (BEAKER) (test code = 174 mg/dL 631) HDL CHOLESTEROL (BEAKER) (test code 26 mg/dL = 976) LDL CHOLESTEROL CALCULATED ([facility]) 133 mg/dL (test code = 633) Triglyceride Reference Range: Low Risk <150 Borderline 150-199 High Risk 200-499 Very High Risk >=500Cholesterol Reference Range: Low Risk <200 Borderline 200-239 High Risk >240HDL Cholesterol Reference Range: Low Risk >=60 High Risk <40LDL Cholesterol Reference Range: Optimal <100 Near Optimal 100-129 Borderline 130-159 High 160-189 Very High >=190BASIC METABOLIC [id number] 06:03:00 Test Item Value Reference Range Interpretation [...] S NOT APPLICABLE FOR DIALYSIS PATIEN TS. [id number] 05:57:00 Test Item Value Reference Range Interpretation Comments MAGNESIUM (BEAKER) (test code = 1.9 mg/dL 1.5-3.0 627) HEMOGLOBIN [id number] 05:56:00 Test Item Value Reference Range Interpretation Comments HEMOGLOBIN A1C (BEAKER) (test code = 7.7 % 4.3-6.1 H 368) CBC W/PLT COUNT & AUTO [id number] 05:31:00 Test Item Value Reference Range Interpretation [...] L 0.00-0.20 (test code = 417) TROPONIN [id number] 22:53:00 Test Item Value Reference Range Interpretation [...] acute neurological disease, and persistent tachyarrhythmia.U/S, ABDOMINAL, [id number] 22:08:00Reason for exam:->AscitesReason for exam:->BLOATEDFINAL REPORT U/S, [...] MDReport Verified Date/Time: 06/10/2017 22:08:13 Reading Location: [address] Reading Room URINALYSIS W/ REFLEX URINE [id number] 18:41:00 Test Item Value Reference Range Interpretation [...] 1663) SOURCE(BEAKER) (test code = 2795) TROPONIN [id number] 13:07:00 Test Item Value Reference Range Interpretation [...] H (test code = 700) HEPATIC FUNCTION [id number] 12:59:00 Test Item Value Reference Range Interpretation [...] (test code = 23 U/L 5-50 347) [id number] 12:59:00 Test Item Value Reference Range Interpretation Comments LIPASE (BEAKER) (test code = 749) 19 U/L 6-51 BASIC METABOLIC [id number] 12:57:00 Test Item Value Reference Range Interpretation [...] PATIEN TS. CBC W/PLT COUNT & AUTO [id number] 12:37:00 Test Item Value Reference Range Interpretation [...] = 417) RAD, CHEST, 1 VIEW, NON [id number] 12:32:00Reason for exam:->shortness of breathReason for exam:->BLOATEDShould [facility]?->YesFINAL REPORT Comparison: 04/06/2012 TECHNIQUE: Single view of the chest FINDINGS: Lung volumes are low. Prominence of the cardiac silhouette and vasculature which may be related topoor inspiration and technique . There is no gross consolidation identified. No overt edema or largepleural effusion. Left-sided pacing device noted. No acute skeletal abnormality. Signed: Veronica Bonilla Verified Date/Time: 06/10/2017 12:32:49 Reading Location: [facility] Radiology Reading Room POCT-GLUCOSE [id number] 07:40:00 Test Item Value Reference Range Interpretation Comments POC-GLUCOSE METER 100 mg/dL 70-110 TESTED AT [address] ([facility]) (test code [facility] [place] = 1538) 955[address] POCT-GLUCOSE [id number] 06:57:00 Test Item Value Reference Range Interpretation Comments POC-GLUCOSE METER 50 mg/dL 70-110 L TESTED AT [address] ([facility]) (test code = [facility] [place] [facility] [address] POCT-GLUCOSE [id number] 20:59:00 Test Item Value Reference Range Interpretation Comments POC-GLUCOSE METER 142 mg/dL 70-110 H TESTED AT [address] ([facility]) (test code [facility] [place] = 1538) 87646 POCT-GLUCOSE [id number] 17:23:00 Test Item Value Reference Range Interpretation Comments POC-GLUCOSE METER 123 mg/dL 70-110 H TESTED AT [address] ([facility]) (test code [facility] [place] = 1538) 68201 POCT-GLUCOSE [id number] 12:38:00 Test Item Value Reference Range Interpretation Comments POC-GLUCOSE METER 153 mg/dL 70-110 H TESTED AT [address] ([facility]) (test code [facility] [place] = 1538) 41154 BASIC METABOLIC [id number] 05:49:00 Test Item Value Reference Range Interpretation [...] NOT APPLICABLE FOR DIALYSIS PATIEN TS. POCT-GLUCOSE [id number] 05:36:00 Test Item Value Reference Range Interpretation Comments POC-GLUCOSE METER 74 mg/dL 70-110 TESTED AT [address] ([facility]) (test code = [address] [facility] 1538) 53261 CBC W/PLT COUNT & AUTO [id number] 05:29:00 Test Item Value Reference Range Interpretation [...] L 0.00-0.20 (test code = 417) POCT-GLUCOSE [id number] 19:53:00 Test Item Value Reference Range Interpretation Comments POC-GLUCOSE METER 120 mg/dL 70-110 H TESTED AT [address] ([facility]) (test code [facility] [place] = 1538) 95946 POCT-GLUCOSE [id number] 15:41:00 Test Item Value Reference Range Interpretation Comments POC-GLUCOSE METER 135 mg/dL 70-110 H TESTED AT [address] ([facility]) (test code [facility] [place] = 1538) [address] RAD, CHEST, 1 VIEW, NON [id number] 12:31:00Reason for exam:->follow up FINAL REPORT COMPARISON: 04/03/2017 TECHNIQUE: Single view of the chest FINDINGS: Small left pleural effusion with adjacent airspace disease. There is mild vascular congestion elsewhere. Cardiac silhouette is enlarged. Left-sided pacing device noted. Signed: Gab Bonilla MDReport Verified Date/Time: 04/06/2017 12:31:34 Reading Location: [facility] Radiology Reading Room POCT- GLUCOSE [id number] 11:39:00 Test Item Value Reference Range Interpretation Comments POC-GLUCOSE METER 184 mg/dL 70-[address] [facility] ([facility]) (test code [address] [facility] [place] = 1538) [address] POCT-GLUCOSE [id number] 07:18:00 Test Item Value Reference Range Interpretation Comments POC-GLUCOSE METER 83 mg/dL 70-110 TESTED AT [address] (BEAKER) (test code = [address] [facility] [place] 1538) [address] BASIC METABOLIC [id number] 06:01:00 Test Item Value Reference Range Interpretation [...] = 700) CBC W/PLT COUNT & AUTO [id number] 05:39:00 Test Item Value Reference Range Interpretation [...] L 0.00-0.20 (test code = 417) POCT-GLUCOSE [id number] 21:56:00 Test Item Value Reference Range Interpretation Comments POC-GLUCOSE METER 144 mg/dL 70-[address] [facility] (BEAKER) (test code [facility] [place] = 1538) 67[address] POCT-GLUCOSE [id number] 16:38:00 Test Item Value Reference Range Interpretation Comments POC-GLUCOSE METER 153 mg/dL 70-[address] [facility] (BEAKER) (test code [facility] [place] = 1538) 42098 POCT-GLUCOSE [id number] 12:52:00 Test Item Value Reference Range Interpretation Comments POC-GLUCOSE METER 144 mg/dL 70-[address] [facility] (BEAKER) (test code [facility] [place] = 1538) [address]24 POCT-GLUCOSE [id number] 06:07:00 Test Item Value Reference Range Interpretation Comments POC-GLUCOSE METER 124 mg/dL 70-110 H TESTED AT [address] (BEAKER) (test code [facility] [place] = 1538) 099[address] BASIC METABOLIC [id number] 05:26:00 Test Item Value Reference Range Interpretation [...] S NOT APPLICABLE FOR DIALYSIS PATIEN TS. [id number] 05:20:00 Test Item Value Reference Range Interpretation Comments MAGNESIUM (BEAKER) (test code = 2.4 mg/dL 1.5-3.0 627) CBC W/PLT COUNT & AUTO [id number] 05:19:00 Test Item Value Reference Range Interpretation [...] L 0.00-0.20 (test code = 417) POCT-GLUCOSE [id number] 19:59:00 Test Item Value Reference Range Interpretation Comments POC-GLUCOSE METER 198 mg/dL 70-110 H TESTED AT [address] ([facility]) (test code [facility] [place] = 1538) 28789 POCT-GLUCOSE [id number] 16:34:00 Test Item Value Reference Range Interpretation Comments POC-GLUCOSE METER 230 mg/dL 70-110 H TESTED AT [address] ([facility]) (test code [facility] [place] = 1538) 18899 POCT-GLUCOSE [id number] 13:02:00 Test Item Value Reference Range Interpretation Comments POC-GLUCOSE METER 273 mg/dL 70-110 H TESTED AT [address] ([facility]) (test code [facility] [place] = 1538) [address] B-TYPE NATRIURETIC FACTOR (BNP)2017-04-04 06:55:00 Test Item Value Reference Range Interpretation Comments B-TYPE NATRIURETIC PEPTIDE (BEAKER) 824 pg/mL 0-100 H (test code = 700) BASIC METABOLIC [id number] 06:47:00 Test Item Value Reference Range Interpretation [...] S NOT APPLICABLE FOR DIALYSIS PATIEN TS. [id number] 06:41:00 Test Item Value Reference Range Interpretation Comments MAGNESIUM (BEAKER) (test code = 2.2 mg/dL 1.5-3.0 627) CBC W/PLT COUNT & AUTO [id number] 06:32:00 Test Item Value Reference Range Interpretation [...] 0-100 H (test code = 700) TROPONIN [id number] 12:05:00 Test Item Value Reference Range Interpretation [...] neurological disease, and persistent tachyarrhythmia.RAD, CHEST, 2 [id number] 11:59:00 Reason for exam:->SOBFINAL REPORT History: Shortness [...] MDReport Verified Date/Time: 04/03/2017 11:59:26 Reading Location: [facility] Ortho Consult Reading Room BASIC METABOLIC [id number] 11:57:00 Test Item Value Reference Range Interpretation [...] PATIEN TS. CBC W/PLT COUNT & AUTO [id number] 11:42:00 Test Item Value Reference Range Interpretation [...] = 417) RAD, CHEST, 1 VIEW, NON [id number] 11:12:00Reason for exam:->follow up FINAL REPORT Chest, 1 view Clinical history: follow up Comparison: 03/25/2017Discussion: Left-sided pacemaker in position without pneumothorax. Small left pleural effusion is seen with atelectasis. The cardiac silhouette is enlarged with mild perihilar edema. No acute osseous abnormality. Signed: [facility]ir [facility]st[facility] Verified Date/Time: 03/27/2017 11:12:12 Reading Location: [address] Ortho Consult Reading Room UE [id number] 08:29:00 Test Item Value Reference Range Interpretation [...] = 700) CREATINE KINASE (CK), TOTAL AND [id number] 08:27:00 Test Item Value Reference Range Interpretation Comments CREATINE KINASE TOTAL (BEAKER) 303 U/L 40-250 H (test code = 380) CREATINE KINASE-MB (BEAKER) (test 5.9 ng/mL 0.0-4.9 H code = 750) CREATINE KINASE-MB INDEX (BEAKER) 1.9 % (test code = 395) CK-MB Reference Range:<5 Normal5-10 Borderline>10 AbnormalBASIC METABOLIC [id number] 08:18:00 Test Item Value Reference Range Interpretation [...] PATIEN TS. CBC W/PLT COUNT & AUTO [id number] 07:44:00 Test Item Value Reference Range Interpretation [...] L 0.00-0.20 (test code = 417) POCT-GLUCOSE [id number] 05:54:00 Test Item Value Reference Range Interpretation Comments POC-GLUCOSE METER 226 mg/dL 70-[address] [facility] ([place]) (test code [facility] [place] = 1538) 779[address] POCT-GLUCOSE [id number] 20:54:00 Test Item Value Reference Range Interpretation Comments POC-GLUCOSE METER 180 mg/dL 70-[address] [facility] ([facility]) (test code [facility] [place] = 1538) 57561 POCT-GLUCOSE [id number] 16:40:00 Test Item Value Reference Range Interpretation Comments POC-GLUCOSE METER 262 mg/dL 70-[address] [facility] ([facility]) (test code [facility] [place] = 1538) 05778 LIPID [id number] 15:41:00 Test Item Value Reference Range Interpretation Comments TRIGLYCERIDES ([facility]) (test code = 86 mg/dL 540) CHOLESTEROL ([facility]) (test code = 203 mg/dL 631) HDL CHOLESTEROL ([facility]) (test code 33 mg/dL = 976) LDL CHOLESTEROL CALCULATED ([facility]) 153 mg/dL (test code = 633) Triglyceride Reference Range: Low Risk <150 Borderline 150-199 High Risk 200-499 Very High Risk >=500Cholesterol Reference Range: Low Risk <200 Borderline 200-239 High Risk >240HDL Cholesterol Reference Range: Low Risk >=60 High Risk <40LDL Cholesterol Reference Range: Optimal <100 Near Optimal 100-129 Borderline 130-159 High 160-189 Very High >=190TSH/FREE T4 IF [id number] 15:27:00 Test Item Value Reference Range Interpretation Comments THYROID STIMULATING HORMONE 4.34 uIU/mL 0.35-5.50 ([facility]) (test code = 772) TROPONIN [id number] 15:18:00 Test Item Value Reference Range Interpretation Comments TROPONIN I ([facility]) (test code = 0.54 ng/mL 0.00-0.15 HH [...] H (test code = 700) BASIC METABOLIC [id number] 15:03:00 Test Item Value Reference Range Interpretation [...] NOT APPLICABLE FOR DIALYSIS PATIEN TS. HEMOGLOBIN [id number] 08:23:00 Test Item Value Reference Range Interpretation Comments HEMOGLOBIN A1C (BEAKER) (test code = 8.8 % 4.3-6.1 H 368) CBC W/PLT COUNT & AUTO [id number] 07:23:00 Test Item Value Reference Range Interpretation [...] L 0.00-0.20 (test code = 417) POCT-GLUCOSE [id number] 06:53:00 Test Item Value Reference Range Interpretation Comments POC-GLUCOSE METER 176 mg/dL 70-110 H TESTED AT [address] ([facility]) (test code [facility] = 1538) 24239 TROPONIN [id number] 23:25:00 Test Item Value Reference Range Interpretation Comments TROPONIN I ([facility]) (test code = 0.58 ng/mL 0.00-0.15 397) [...] Reference Range Interpretation Comments CREATINE KINASE TOTAL ([facility]) 294 U/L 40-250 H (test code = 380) CREATINE KINASE-MB ([facility]) (test 5.1 ng/mL 0.0-4.9 H code = 750) CREATINE KINASE-MB INDEX ([facility]) 1.7 % (test code = 395) CK-MB Reference Range:<5 Normal5-10 Borderline>10 AbnormalPOCT-GLUCOSE [id number] 20:54:00 Test Item Value Reference Range Interpretation Comments POC-GLUCOSE METER 157 mg/dL 70-110 H TESTED AT [address] ([facility]) (test code [facility] = 1538) 399[address] TROPONIN [id number] 14:46:00 Test Item Value Reference Range Interpretation Comments TROPONIN I ([facility]) (test code = 0.60 ng/mL 0.00-0.15 397) [...] Range Interpretation Comments B-TYPE NATRIURETIC PEPTIDE (BEAKER) 624 pg/mL 0-100 H (test code = 700) PROTHROMBIN [id number] 14:42:00 Test Item Value Reference Range Interpretation Comments PROTIME (BEAKER) (test code = 11.4 seconds 9.3-12.0 759) INR (BEAKER) (test code = 370) 1.1 <=5.9 RECOMMENDED COUMADIN/WARFARIN INR THERAPY RANGESSTANDARD DOSE: 2.0 - 3.0 Includes: PROPHYLAXIS forvenous thrombosis, systemic embolization; TREATMENT for venous thrombosis and/or pulmonary embolus.HIGH RISK: Target INR is 2.5-3.5 for patients with mechanical heart valves.[id number] 14:42:00 Test Item Value Reference Range Interpretation Comments PARTIAL THROMBOPLASTIN TIME 27.0 seconds 23.0-35.0 (BEAKER) (test code = 760) CREATINE KINASE (CK), TOTAL AND [id number] 14:41:00 Test Item Value Reference Range Interpretation Comments CREATINE KINASE TOTAL (BEAKER) 328 U/L 40-250 H (test code = 380) CREATINE KINASE-MB (BEAKER) (test 5.9 ng/mL 0.0-4.9 H code = 750) CREATINE KINASE-MB INDEX (BEAKER) 1.8 % (test code = 395) CK-MB Reference Range:<5 Normal5-10 Borderline>10 AbnormalCOMPREHENSIVE METABOLIC [id number] 14:34:00 Test Item Value Reference Range Interpretation [...] PATIEN TS. CBC W/PLT COUNT & AUTO [id number] 14:04:00 Test Item Value Reference Range Interpretation [...] = 417) RAD, CHEST, 1 VIEW, NON [id number] 13:52:00Reason for exam:->SHORTNESS OF BREATHReason for exam:->EDEMAShould [...] 2. Pulmonary vascular congestion. Signed: Brian Kilgore Verified Date/Time: 03/25/2017 13:52:22 Reading Location: [facility] Radiology Reading Room POCT- GLUCOSE [id number] 12:04:00 Test Item Value Reference Range Interpretation Comments POC-GLUCOSE METER 171 mg/dL 70-110 H TESTED AT [address] (BEAKER) (test code [address] [facility] [place] = 1538) 283[address] BASIC METABOLIC [id number] 08:14:00 Test Item Value Reference Range Interpretation [...] PATIEN TS. CBC W/PLT COUNT & AUTO [id number] 07:57:00 Test Item Value Reference Range Interpretation [...] L 0.00-0.20 (test code = 417) POCT-GLUCOSE [id number] 07:11:00 Test Item Value Reference Range Interpretation Comments POC-GLUCOSE METER 164 mg/dL 70-110 H TESTED AT [address] ([facility]) (test code [facility] [place] = 1538) [address] POCT-GLUCOSE [id number] 22:24:00 Test Item Value Reference Range Interpretation Comments POC-GLUCOSE METER 222 mg/dL 70-110 H TESTED AT [address] ([facility]) (test code [facility] [place] = 1538) [id number] POCT-GLUCOSE [id number] 17:12:00 Test Item Value Reference Range Interpretation Comments POC-GLUCOSE METER 187 mg/dL 70-110 H TESTED AT [address] ([facility]) (test code [facility] [place] = 1538) [id number] POCT-GLUCOSE [id number] 17:12:00 Test Item Value Reference Range Interpretation Comments POC-GLUCOSE METER 190 mg/dL 70-110 H TESTED AT [address] ([facility]) (test code [facility] [place] = 1538) [id number] POCT-GLUCOSE [id number] 05:55:00 Test Item Value Reference Range Interpretation Comments POC-GLUCOSE METER 181 mg/dL 70-110 H TESTED AT [address] ([facility]) (test code [facility] [place] = 1538) [id number] POCT-GLUCOSE [id number] 21:23:00 Test Item Value Reference Range Interpretation Comments POC-GLUCOSE METER 305 mg/dL 70-110 H Baby teste d Mother ID ([facility]) (test code used/[place] [address] = 1538) [place] [facility] 77 [id number] POCT-GLUCOSE [id number] 19:05:00 Test Item Value Reference Range Interpretation Comments POC-GLUCOSE METER 181 mg/dL 70-110 H TESTED AT [address] ([facility]) (test code [facility] [place] = 1538) [address] POCT-GLUCOSE [id number] 19:04:00 Test Item Value Reference Range Interpretation Comments POC-GLUCOSE METER 252 mg/dL 70-110 H TESTED AT [address] ([facility]) (test code [facility] [place] = 1538) [address] POCT-GLUCOSE [id number] 19:04:00 Test Item Value Reference Range Interpretation Comments POC-GLUCOSE METER 175 mg/dL 70-110 H TESTED AT [address] ([facility]) (test code [facility] [place] = 1538) [address]32 POCT-GLUCOSE [id number] 06:14:00 Test Item Value Reference Range Interpretation Comments POC-GLUCOSE METER 212 mg/dL 70-110 H TESTED AT [address] ([facility]) (test code [facility] [place] = 1538) [id number] CREATINE KINASE (CK), TOTAL AND [id number] 03:39:00 Test Item Value Reference Range Interpretation Comments CREATINE KINASE TOTAL ([facility]) 174 U/L 40-250 (test code = 380) CREATINE KINASE-MB ([facility]) (test 4.7 ng/mL 0.0-4.9 code = 750) CREATINE KINASE-MB INDEX ([facility]) 2.7 % (test code = 395) CK-MB Reference Range:<5 Normal5-10 Borderline>10 AbnormalTROPONIN I 2017-02-05 03:39:00 Test Item Value Reference Range Interpretation Comments TROPONIN I (BEAKER) (test code = 0.07 ng/mL 0.00-0.15 397) [...] acidosis, acute neurological disease, and persistent tachyarrhythmia.LIPID [id number] 03:33:00 Test Item Value Reference Range Interpretation Comments TRIGLYCERIDES (BEAKER) (test code = 164 mg/dL 540) CHOLESTEROL (BEAKER) (test code = 217 mg/dL 631) HDL CHOLESTEROL (BEAKER) (test code 28 mg/dL = 976) LDL CHOLESTEROL CALCULATED (BEAKER) 156 mg/dL (test code = 633) Triglyceride Reference Range: Low Risk <150 Borderline 150-199 High Risk 200-499 Very High Risk >=500Cholesterol Reference Range: Low Risk <200 Borderline 200-239 High Risk >240HDL Cholesterol Reference Range: Low Risk >=60 High Risk <40LDL Cholesterol Reference Range: Optimal <100 Near Optimal 100-129 Borderline 130-159 High 160-189 Very High >=190BASIC METABOLIC [id number] 03:31:00 Test Item Value Reference Range Interpretation [...] NOT APPLICABLE FOR DIALYSIS PATIEN TS. HEMOGLOBIN [id number] 03:30:00 Test Item Value Reference Range Interpretation Comments HEMOGLOBIN A1C (BEAKER) (test code = 9.7 % 4.3-6.1 H 368) CBC W/PLT COUNT & AUTO [id number] 03:18:00 Test Item Value Reference Range Interpretation [...] NEUTROPHILS ABSOLUTE COUNT 6.70 K/ L 1.80-8.00 (AKER) (test code = 670) LYMPHOCYTES ABSOLUTE COUNT 2.40 K/ L 1.48-4.50 (BEAKER) (test code = 414) MONOCYTES ABSOLUTE COUNT (BEAKER) 0.70 K/ L 0.00-1.30 (test code = 415) EOSINOPHILS ABSOLUTE COUNT 0.30 K/ L 0.00-0.50 (BEAKER) (test code = 416) BASOPHILS ABSOLUTE COUNT (BEAKER) 0.00 K/ L 0.00-0.20 (test code = 417) POCT-GLUCOSE [id number] 21:13:00 Test Item Value Reference Range Interpretation Comments POC-GLUCOSE METER 285 mg/dL 70-110 H TESTED AT [address] ([facility]) (test code [facility] [place] = 1538) [id number] POCT-GLUCOSE [id number] 21:13:00 Test Item Value Reference Range Interpretation Comments POC-GLUCOSE METER 288 mg/dL 70-110 H TESTED AT [address] ([facility]) (test code [facility] [place] = 1538) [address] CREATINE KINASE (CK), TOTAL AND [id number] 16:27:00 Test Item Value Reference Range Interpretation Comments CREATINE KINASE TOTAL ([facility]) 202 U/L 40-250 (test code = 380) CREATINE KINASE-MB ([facility]) (test 7.3 ng/mL 0.0-4.9 H code = 750) CREATINE KINASE-MB INDEX ([facility]) 3.6 % (test code = 395) CK-MB Reference Range:<5 Normal5-10 Borderline>10 AbnormalTROPONIN I 2017-02-04 16:26:00 Test Item Value Reference Range Interpretation Comments TROPONIN I ([facility]) (test code = 0.05 ng/mL 0.00-0.15 397) [...] and persistent tachyarrhythmia.RAD, CHEST, 1 VIEW, NON [id number] 09:17:00Reason for exam:->chest painFINAL REPORT Chest one [...] Gonzales Verified Date/Time: 02/04/2017 09:17:01 Reading Location: [facility] Radiology Reading Room [facility] [id number] 09:14:00 Test Item Value Reference Range Interpretation [...] = 700) CREATINE KINASE (CK), TOTAL AND [id number] 09:13:00 Test Item Value Reference Range Interpretation Comments CREATINE KINASE TOTAL (BEAKER) 235 U/L 40-250 (test code = 380) CREATINE KINASE-MB (BEAKER) (test 6.0 ng/mL 0.0-4.9 H code = 750) CREATINE KINASE-MB INDEX (BEAKER) 2.6 % (test code = 395) CK-MB Reference Range:<5 Normal5-10 Borderline>10 AbnormalBASIC METABOLIC [id number] 09:05:00 Test Item Value Reference Range Interpretation [...] S NOT APPLICABLE FOR DIALYSIS PATIEN TS. [id number] 09:03:00 Test Item Value Reference Range Interpretation [...] is 2.5-3.5 for patients with mechanical heart valves.[id number] 09:00:00 Test Item Value Reference Range Interpretation Comments MAGNESIUM (BEAKER) (test code = 2.0 mg/dL 1.5-3.0 627) CBC W/PLT COUNT & AUTO [id number] 08:50:00 Test Item Value Reference Range Interpretation [...] = 700) CREATINE KINASE (CK), TOTAL AND [id number] 11:53:00 Test Item Value Reference Range Interpretation Comments CREATINE KINASE TOTAL (BEAKER) 228 U/L 40-250 (test code = 380) CREATINE KINASE-MB (BEAKER) (test 4.8 ng/mL 0.0-4.9 code = 750) CREATINE KINASE-MB INDEX (BEAKER) 2.1 % (test code = 395) CK-MB Reference Range:<5 Normal5-10 Borderline>10 AbnormalBASIC METABOLIC [id number] 11:52:00 Test Item Value Reference Range Interpretation [...] NOT APPLICABLE FOR DIALYSIS PATIEN TS. TROPONIN [id number] 11:40:00 Test Item Value Reference Range Interpretation [...] acidosis, acute neurological disease, and persistent tachyarrhythmia.PROTHROMBIN TIME/[id number] 10:16:00 Test Item Value Reference Range Interpretation [...] = 417) RAD, CHEST, 1 VIEW, NON [id number] 09:42:00Reason for exam:->SHORTNESS OF BREATHOn \\T\\ off [...] sided pacing device noted. Signed: Gab Bonilla Verified Date/Time: 12/01/2016 09:42:01 Reading Location: [facility] Radiology Reading Room POCT-GLUCOSE [id number] 18:07:00 Test Item Value Reference Range Interpretation Comments POC-GLUCOSE METER 159 mg/dL 70-110 H TESTED AT [address] ([facility]) (test code [facility] [place] = 1538) [id number] POCT-GLUCOSE [id number] 13:56:00 Test Item Value Reference Range Interpretation Comments POC-GLUCOSE METER 218 mg/dL 70-110 H TESTED AT [address] ([facility]) (test code [facility] [place] = 1538) [address] POCT-GLUCOSE [id number] 06:26:00 Test Item Value Reference Range Interpretation Comments POC-GLUCOSE METER 118 mg/dL 70-110 H TESTED AT [address] ([facility]) (test code [address] [facility] [place] = 1538) [address] HEMOGLOBIN [id number] 02:55:00 Test Item Value Reference Range Interpretation Comments HEMOGLOBIN A1C ([facility]) (test code = 9.3 % 4.3-6.1 H 368) TROPONIN [id number] 02:45:00 Test Item Value Reference Range Interpretation Comments TROPONIN I ([facility]) (test code = 0.04 ng/mL 0.00-0.15 397) [...] Reference Range Interpretation Comments CREATINE KINASE TOTAL ([facility]) 253 U/L 40-250 H (test code = 380) CREATINE KINASE-MB (AKER) (test 4.2 ng/mL 0.0-4.9 code = 750) CREATINE KINASE-MB INDEX ([facility]) 1.7 % (test code = 395) CK-MB Reference Range:<5 Normal5-10 Borderline>10 AbnormalLIPID PANEL 2016-11-02 02:41:00 Test Item Value Reference Range Interpretation Comments TRIGLYCERIDES (AKER) (test code = 194 mg/dL 540) CHOLESTEROL (BEAKER) (test code = 242 mg/dL 631) HDL CHOLESTEROL (AKER) (test code 27 mg/dL = 976) LDL CHOLESTEROL CALCULATED ([facility]) 176 mg/dL (test code = 633) Triglyceride Reference Range: Low Risk <150 Borderline 150-199 High Risk 200-499 Very High Risk >=500Cholesterol Reference Range: Low Risk <200 Borderline 200-239 High Risk >240HDL Cholesterol Reference Range: Low Risk >=60 High Risk <40LDL Cholesterol Reference Range: Optimal <100 Near Optimal 100-129 Borderline 130-159 High 160-189 Very High >=190BASIC METABOLIC [id number] 02:38:00 Test Item Value Reference Range Interpretation [...] PATIEN TS. CBC W/PLT COUNT & AUTO [id number] 02:37:00 Test Item Value Reference Range Interpretation [...] L 0.00-0.20 (test code = 417) POCT-GLUCOSE [id number] 21:41:00 Test Item Value Reference Range Interpretation Comments POC-GLUCOSE METER 222 mg/dL 70-110 H TESTED AT [address] ([facility]) (test code [facility] [place] = 1538) [address] POCT-GLUCOSE [id number] 17:42:00 Test Item Value Reference Range Interpretation Comments POC-GLUCOSE METER 187 mg/dL 70-110 H TESTED AT [address] ([facility]) (test code [facility] [place] = 1538) [address] TROPONIN [id number] 17:08:00 Test Item Value Reference Range Interpretation Comments TROPONIN I ([facility]) (test code = 0.04 ng/mL 0.00-0.15 397) [...] 395) CK-MB Reference Range:<5 Normal5-10 Borderline>10 AbnormalPOCT-GLUCOSE [id number] 12:19:00 Test Item Value Reference Range Interpretation Comments POC-GLUCOSE METER 284 mg/dL 70-[address] [facility] (BEAKER) (test code [facility] [place] = 1538) [address] URINALYSIS W/ REFLEX URINE [id number] 08:37:00 Test Item Value Reference Range Interpretation [...] 0-100 H (test code = 700) CALCIUM, [id number] 06:41:00 Test Item Value Reference Range Interpretation Comments CALCIUM IONIZED (BEAKER) (test 1.14 mmol/L 1.12-1.27 code = 698) PH, BLOOD (BEAKER) (test code = 7.43 1810) CREATINE KINASE (CK), TOTAL AND [id number] 06:14:00 Test Item Value Reference Range Interpretation [...] 0.00-0.20 (test code = 417) BASIC METABOLIC [id number] 06:08:00 Test Item Value Reference Range Interpretation [...] NOT APPLICABLE FOR DIALYSIS PATIEN TS. PROTHROMBIN [id number] 06:01:00 Test Item Value Reference Range Interpretation Comments PROTIME (BEAKER) (test code = 10.2 seconds 9.3-12.0 759) INR (BEAKER) (test code = 370) 1.0 <=5.9 RECOMMENDED COUMADIN/WARFARIN INR THERAPY RANGESSTANDARD DOSE: 2.0 - 3.0 Includes: PROPHYLAXIS forvenous thrombosis, systemic embolization; TREATMENT for venous thrombosis and/or pulmonary embolus.HIGH RISK: Target INR is 2.5-3.5 for patients with mechanical heart valves.TROPONIN [id number] 05:35:00 Test Item Value Reference Range Interpretation [...] CK-MB Reference Range:<5 Normal5-10 Borderline>10 AbnormalBASIC METABOLIC [id number] 05:27:00 Test Item Value Reference Range Interpretation [...] PATIEN TS. CBC W/PLT COUNT & AUTO [id number] 05:11:00 Test Item Value Reference Range Interpretation [...]
[2021-03-01] MEDS ORDERED: ACETAMINOPHEN 500 MG TAB PO PRN (02:48)
[2021-03-01] MEDS ORDERED: ONDANSETRON 4 MG/2 ML VIAL IV PRN (02:48)
[2021-03-01] MEDS ORDERED: ALBUTEROL 2.5 MG/3 ML NEB SOL NEB PRN (02:48)
[2021-03-01] MEDS: HEPARIN 5000 UNIT/ML 1 ML VIAL SQ SCH ×3 (02:48→17:00)
[2021-03-01] MEDS ORDERED: MORPHINE 2 MG/ML SYR IV PRN (02:48)
[2021-03-01] MEDS ORDERED: Levofloxacin 750mg IV 750 MG/150 ML BAG IV ONE (03:00)
[2021-03-01 03:23] VITALS: BMI 33.0
[2021-03-01 04:00] LABS: Basophils % 0.5 % (0-1.3); Hematocrit 38.9 % (39.6-49.0); MPV 9.4 fL (7.6-11.3); RBC Red Blood Cell Count 4.14 M/uL (4.33-5.43)
[2021-03-01] MEDS: GUAIFENESIN/DM 5 ML UCUP PO PRN ×3 (04:16→18:50)
[2021-03-01 04:24] LABS: Albumin 2.1 g/dL (3.4-5.0); Bilirubin Total 0.5 mg/dL (0.2-1.0); Magnesium 1.9 mg/dL (1.8-2.4); Phosphorus 6.2 mg/dL (2.5-4.9); Potassium 4.2 mmol/L (3.5-5.1); Protein, Total 6.4 g/dL (6.4-8.2); Thyroid Stimulating Hormone 1.74 uIU/mL (0.360-3.740); Troponin I 0.08 ng/mL (0.0-0.045)
[2021-03-01 06:16] LABS: SARS-COV-2 RT PCR NEGATIVE (NEGATIVE)
[2021-03-01] MEDS: INSULIN -REGULAR HUMAN 50 UNIT/0.5 ML ML SQ SCH ×4 (07:30→21:00)
[2021-03-01] MEDS ORDERED: FUROSEMIDE 40 MG/4 ML VIAL IV SCH ×2 (09:00→17:00)
[2021-03-01] MEDS: ARFORMOTEROL TARTRATE 15 MCG/2 ML VIAL.NEB NEB SCH ×2 (09:55→20:23)
--- NOTE | 2021-03-01 09:56 | P.CNS ---
Date of Consult: 03/01/21 Reason for Consult: Respiratory failure respiratory failure Chief Complaint: CHF exacerbation, hypoxia History of Present Illness: Patient is 45 years of CHF multiple medical problems chronic renal disease admitted with worsening dyspnea productive cough GI symptoms family members tested negative for Covid is hypoxic currently on BiPAP Allergies No Known Allergies Allergy (Verified 01/02/21 09:20) Home Medications: Bumetanide [Bumex*] 1 tab PO DAILY 01/02/21 Carvedilol [Coreg] 1 tab PO DAILY 01/02/21 Clopidogrel Bisulfate [Plavix*] 1 tab PO DAILY 01/02/21 Gabapentin 1 tab PO TID 01/02/21 Insulin Glargine,Hum.rec.anlog [Lantus] 50 units SQ BID 01/02/21 Insulin Lispro [Humalog] See Protocol SQ TID 01/02/21 Isosorbide Mononitrate [Isosorbide Mononitrate ER] 1 tab PO DAILY 01/02/21 Rosuvastatin Calcium [Crestor] 1 tab PO DAILY 01/02/21 metOLazone [Metolazone] 1 tab PO DAILY 01/02/21 Allopurinol 50 mg PO SEECOM 02/03/21 Amlodipine [Norvasc*] 5 mg PO DAILY 02/03/21 Albuterol Sulfate [Proair Hfa] 2 puff IH TID PRN #1 hfa.aer.ad 02/08/21 Apixaban [Eliquis] 5 mg PO SEECOM #70 tablet 02/08/21 Budesonide/Formoterol Fumarate [Symbicort 160-4.5 Mcg Inhaler] 2 puff IH BID #1 hfa.aer.ad 02/08/21 Doxycycline Hyclate 100 mg PO BID #10 tablet 02/08/21 predniSONE [Deltasone*] 10 mg PO DAILY #7 tab 02/08/21 - Past Medical/Surgical History Diabetic: Yes -: Systolic congestive heart failure -: CAD -: Diabetes mellitus type 2 -: Hypertension -: CKD4 -: Gout -: Cardiac stents -: Pacemaker/defibrillator Psychosocial/ Personal History: Patient lives at home with his fiance - Social History Smoking Status: Former smoker Alcohol use: No CD- Drugs: No Caffeine use: Yes Place of Residence: Home Review of Systems General: Weakness Respiratory: Cough, Shortness of Breath Gastrointestinal: Nausea Physical Examination Temp Pulse Resp BP Pulse Ox 97.9 F 74 20 122/73 92 03/01/21 08:00 03/01/21 08:00 03/01/21 08:00 03/01/21 08:00 03/01/21 08:00 General: Alert, In no apparent distress, Cooperative Respiratory: Expiratory wheezes Cardiovascular: No edema, Regular rate/rhythm Gastrointestinal: Normal bowel sounds, Soft and benign Musculoskeletal: No clubbing, No swelling Integumentary: No rashes Laboratory Data (last 24 hrs) 03/01/21 03:30: Sodium 138, Potassium 4.2, BUN 73 H, Creatinine 3.46 H, Glucose 223 H, Phosphorus 6.2 H, Magnesium 1.9, Total Bilirubin 0.5, AST 23, ALT 29, Alkaline Phosphatase 92, Troponin I 0.08 H, Triglycerides 110, Cholesterol 145, HDL Cholesterol 38 L, Cholesterol/HDL Ratio 3.82 03/01/21 03:30: WBC 8.80 D, Hgb 12.9 L, Hct 38.9 L, Plt Count 186 02/28/21 20:59: PT 14.8 H, INR 1.28 02/28/21 20:59: WBC 10.40, Hgb 13.4 L, Hct 40.6, Plt Count 197 02/28/21 20:59: Sodium 136, Potassium 4.7, BUN 69 H, Creatinine 3.34 H, Glucose 259 H, Magnesium 1.9 D, Total Bilirubin 0.5, AST 28, ALT 34, Alkaline Phosphatase 103 - Problems (1) CHF (congestive heart failure), NYHA class III Current Visit: No Status: Acute Plan: Patient is 45 years of age admitted with worsening dyspnea he has severe congestive heart failure chronic renal disease chest x-ray cardiomegaly BNP is elevated we will take the patient up and take patient off BiPAP add Brovana Qualifiers: Congestive heart failure type: systolic Congestive heart failure chronicity: acute Qualified Code(s): I50.21 - Acute systolic (congestive) heart failure
[2021-03-01] MEDS: APIXABAN 5 MG TABLET PO SCH ×2 (11:03→21:49)
[2021-03-01] MEDS ORDERED: INFLUENZA VACCINE (for 6+ mo) 0.5 ML DOSE IMVAC ONE (12:00)
--- NOTE | 2021-03-01 14:51 | CON ---
Date of Consultation: 03/01/2021 Reason For Consultation: Fluid management, elevated BUN and creatinine, hypertension. History Of Present Illness: This is a pleasant unfortunate 45-year-old gentleman with significant past medical history of CAD status post PTCA back in 2015, status post ICD, complicated with congestive heart failure, ejection fraction of 28%, diabetes since 2004 complicated with neuropathy, no retinopathy, complicated also with nephropathy, hypertension, hyperlipidemia, chronic kidney disease with baseline creatinine 3, GFR of 28 back in January 2021, the patient was in his regular state of health. The patient according to him, started having increased shortness of breath and leg swelling over the last 2 weeks, for that reason, reported to the hospital. Upon arrival to the hospital, found to have creatinine 3.3 with GFR of 20, and over volume. For that reason the patient was admitted and we have been consulted. The patient denied taking any nonsteroidal. No IV contrast. According to the patient as outpatient, the patient had been taking Bumex 1 mg b.i.d. and metolazone 5 mg every other day and when he feel swollen, he increase the metolazone to t.i.d. and double on the Bumex 2 mg b.i.d. The patient did that this time, but apparently did not help, for that reason reported to the hospital. Over the night the patient was started on diuresis. Still having shortness of breath. Past Medical History: 1. CAD status post PTCA, status post ICD, complicated with congestive heart failure ejection fraction of 28%. 2. Diabetes since 2004 complicated with neuropathy, nephropathy. No retinopathy. 3. Chronic kidney disease stage IIIB/4, baseline creatinine 3 GFR of 28. 4. COPD. 5. Hypertension. Past Surgical History: Include; 1. Pacemaker. 2. PTCA. Family History: Positive for hypertension and diabetes. Social History: Ex-smoker. Denied alcohol. Denied drug abuse. Review of Systems: Head and Neck: No red eye. No ear pain. GI: No nausea. No vomiting. : No polyuria, no dysuria, no hematuria. Strategy Specialist: Not applicable. Respiratory: Has shortness of breath. Cardiovascular: Has shortness of breath, has orthopnea. Has leg swelling. Endocrine: No polydipsia. Skin: No rash. Neuro: Has neuropathy. Musculoskeletal: Generalized fatigue. Physical Examination: Vital Signs: Blood pressure of 120/74, pulse of 85, afebrile. Chest: Crackles bilateral. Heart: S1, S2. Systolic murmur. Abdomen: Soft, nontender. Extremity: Plus edema. Neurologic: Alert, oriented x3. No focal. No tremor. Laboratory Data: WBC 8.8, H and H 12.9/38.9. Sodium 138, potassium 4.2, bicarb 25, BUN 73, creatinine 3.4, GFR of 19, calcium 8.2, phosphorus 6.2. Albumin 2.1. Corrected calcium is 9.8. [place] [address]. Reviewing the record for the patient back in January, GFR of 28, creatinine of 2.4. Chest x-ray; cardiomegaly with congestion. Renal ultrasound, still pending. Reviewing the record before renal ultrasound showing 13.3/12.1. Urinalysis; +3 protein. Assessment And Plan: Acute kidney injury on advanced chronic kidney disease secondary to cardiorenal over volume. No hyperkalemia or acidosis. I do not see the need for initiating any renal replacement therapy. 1. I am going to go ahead and discontinue the Lasix and we will start the patient on Bumex 1 mg b.i.d. with metolazone 5 mg daily and we will follow up the patient. 2. We will place the patient on a fluid restriction. 3. I will hold any KAREN inhibitor or ARB for the time being. 4. I going to go ahead for sending for protein, creatinine, PTH to evaluate the chronicity of the disease and we will follow up. 5. Hypertension. We will try to utilize the blood pressure for more diuresis. I agree with holding the amlodipine. Switch from Lasix back to Bumex and metolazone and hold isosorbide and we will follow up with Cardiology. 6. Chronic obstructive pulmonary disease exacerbation as by Pulmonary. I going to go ahead and decrease. We will continue on the Levaquin. We will follow up. Continue the treatment for Chronic obstructive pulmonary disease. 7. Respiratory failure, combined secondary chronic obstructive pulmonary disease exacerbation and congestive heart failure, cardiorenal. We will optimize the fluid status. 8. 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 We will quantify the proteinuria and we will follow up. Thank you Dr. Hutton, for allowing us to participate in the care of your patient. time spend exam the patient face to face , placing order , reviewing the data of lab and radiology , discussing with the staff including nusing , discussing with other oneill member including hospitalist and other telesales consultant 65 min ARMANI Voice ID: [id number] Report ID: [id number] MTDD
[2021-03-01] MEDS: carvediloL 12.5 MG TAB PO SCH (17:30)
[2021-03-01] MEDS: BUMETANIDE 1 MG/4 ML VIAL IV SCH (21:51)
[2021-03-02] MEDS: HEPARIN 5000 UNIT/ML 1 ML VIAL SQ SCH ×3 (01:00→16:58)
[2021-03-02] MEDS: GUAIFENESIN/DM 5 ML UCUP PO PRN ×2 (01:02→22:04)
[2021-03-02] MEDS: carvediloL 12.5 MG TAB PO SCH ×2 (05:30→18:00)
[2021-03-02 05:55] LABS: Absolute Lymphocytes (CBC) 1.1 K/uL (0.7-4.9); Basophils % 0.6 % (0-1.3); Hematocrit 36.7 % (39.6-49.0); Lymphocytes % 19.2 % (15.3-44.8); MPV 9.2 fL (7.6-11.3); RBC Red Blood Cell Count 3.88 M/uL (4.33-5.43)
[2021-03-02 06:21] LABS: Albumin 1.9 g/dL (3.4-5.0); Bilirubin Total 0.4 mg/dL (0.2-1.0); Phosphorus 5.6 mg/dL (2.5-4.9); Potassium 3.7 mmol/L (3.5-5.1); Protein, Total 6.1 g/dL (6.4-8.2); Thyroid Stimulating Hormone 1.18 uIU/mL (0.360-3.740)
[2021-03-02] MEDS: INSULIN -REGULAR HUMAN 50 UNIT/0.5 ML ML SQ SCH ×4 (07:30→21:00)
[2021-03-02] MEDS: ARFORMOTEROL TARTRATE 15 MCG/2 ML VIAL.NEB NEB SCH ×2 (08:20→20:00)
[2021-03-02] MEDS ORDERED: Levofloxacin 750mg IV 750 MG/150 ML BAG IV SCH (09:00)
[2021-03-02] MEDS: APIXABAN 5 MG TABLET PO SCH ×2 (09:36→22:02)
[2021-03-02] MEDS: METOLAZONE 5 MG TABLET PO SCH (09:37)
[2021-03-02] MEDS: BUMETANIDE 1 MG/4 ML VIAL IV SCH ×2 (10:38→21:00)
[2021-03-02] MEDS ORDERED: CALCITROL 0.25 MCG CAP PO SCH (14:00)
--- NOTE | 2021-03-02 14:29 | PN ---
Date of Progress Note: 03/02/2021 Subjective: The patient was admitted with acute kidney injury on advanced chronic kidney disease secondary to cardiorenal. The patient was started on diuresis, responding very well. Physical Examination: Vital Signs: Blood pressure 113/64, pulse of 62, afebrile. The patient had good urine output of voiding. Chest: Crackles bilateral. Heart: S1, S2. Systolic murmur. Abdomen: Soft, nontender. Extremities: Trace edema. Neurologic: Alert. No focality. Laboratory Data: H and H 12.2/36.7. Sodium 140, potassium 3.7, bicarb 27, BUN 78, creatinine 3.6, calcium 8.2, uric acid of 12, phosphorus 5.6, albumin 1.9. Corrected calcium is 9.8. PTH 254. Current Medications: The patient on include, carvedilol 12.5, Eliquis, heparin, Tylenol, Bumex 1 mg b.i.d., metolazone 5 daily, breathing treatment, insulin. Assessment And Plan: 1. Acute kidney injury on advanced chronic kidney disease secondary to cardiorenal start to be on the normal volume side. I am going to go ahead and switch his metolazone to be every other day starting tomorrow. 2. Continue Bumex. We will monitor. 3. Hypertension, controlled, optimal continue utilizing the blood pressure for better diuresis. 4. Congestive heart failure, advanced. We will try to establish better volume control with the diuresis. 5. Hypertension, controlled, optimal. Continue current treatment. 6. 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 We are still waiting for the quantification of the proteinuria. 7. Secondary hyperparathyroidism. We will start the patient on calcitriol. time spend exam the patient face to face , placing order , reviewing the data of lab and radiology , discussing with the staff including nusing , discussing with other oneill member including hospitalist and other staffing consultant 45 min LAURA/EUGENIO Voice ID: [id number] Report ID: [id number] CHAUNCEY
--- NOTE | 2021-03-02 16:58 | P.PN ---
Subjective Date of Service: 03/01/21 Patient respiratory status has improved. Patient's clinical symptoms are improving. Appreciate Pulmonary, Nephrology and Cardiology input. Review of Systems 10-point ROS is otherwise unremarkable Physical Examination - Vital Signs Temperature: 97.7 F Blood Pressure: 102/56 Pulse: 92 Respirations: 16 Pulse Ox (%): 93 - Physical Exam General: Alert, In no apparent distress, Oriented x3 Respiratory: Diminished, Crackles/rales Cardiovascular: Regular rate/rhythm, Normal S1 S2, No murmurs Gastrointestinal: Normal bowel sounds, Soft and benign, Non-distended, No tenderness Musculoskeletal: No clubbing, No tenderness, Swelling Neurological: Normal strength at 5/5 x4 extr, Normal tone, Sensation intact, Cranial nerves 3-12 intact - Studies Laboratory Data (last 24 hrs) 03/02/21 05:30: Sodium 140, Potassium 3.7, BUN 78 H, Creatinine 3.67 H, Glucose 98, Uric Acid 12.0 H, Phosphorus 5.6 H, Total Bilirubin 0.4, AST 25, ALT 29, Alkaline Phosphatase 95 03/02/21 05:30: WBC 5.90 D, Hgb 12.2 L, Hct 36.7 L, Plt Count 173 Medications List Reviewed: Yes Assessment & Plan - Problems (Diagnosis) (1) Hypoxia Current Visit: Yes Status: Acute (2) CKD (chronic kidney disease) Current Visit: Yes Status: Chronic Qualifiers: Chronic kidney disease stage: stage 4 (severe) Qualified Code(s): N18.4 - Chronic kidney disease, stage 4 (severe) (3) T2DM (type 2 diabetes mellitus) Current Visit: Yes Status: Chronic Qualifiers: Diabetes mellitus skilled nursing insulin use: with efficiency analyst use Diabetes mellitus complication status: with kidney complications Diabetes mellitus complication detail: with chronic kidney disease Chronic kidney disease stage: stage 4 (severe) Qualified Code(s): E11.22 - Type 2 diabetes mellitus with diabetic chronic kidney disease; N18.4 - Chronic kidney disease, stage 4 (severe); Z79.4 - MCFP (current) use of insulin (4) CHF (congestive heart failure), NYHA class III Current Visit: No Status: Acute Qualifiers: Congestive heart failure type: systolic Congestive heart failure chronicity: acute Qualified Code(s): I50.21 - Acute systolic (congestive) heart failure (5) Advanced chronic obstructive pulmonary disease Current Visit: No Status: Chronic - Plan 1. Echocardiogram is pending 2. Continue with nebs, steroids 3. Start low-dose beta-minerva therapy 4. Cardiology consultation pending 5. Nephrology consultation and pulmonary consultation as well 6. Strict I's and O's 7. Repeat CXR 8. Daily weights 9. Education regarding diet and treatment of congestive heart failure Discharge Plan: Home Plan to discharge in: Greater than 2 days - Advance Directives Does patient have a Living Will: No Does patient have a Durable POA for Healthcare: No - Code Status/Comfort Care Code Status Assessed: Yes Code Status: Full Code Critical Care: No Time Spent Managing PTS Care (In Minutes): 35
--- NOTE | 2021-03-02 16:59 | P.PN ---
Date of Service: 03/02/21 Subjective Patient was more hypoxic today. Patient change to Bumex. Patient does not feel like he can arrange for home oxygen. Does not have the finances to afford for this. Continue to diurese and continue with cardiac & pulmonary meds. Review of Systems 10-point ROS is otherwise unremarkable Physical Examination - Vital Signs Reviewed - Physical Exam General: Alert, In no apparent distress, Oriented x3 Respiratory: Diminished, Crackles/rales Cardiovascular: Regular rate/rhythm, Normal S1 S2, No murmurs Gastrointestinal: Normal bowel sounds, Soft and benign, Non-distended, No tenderness Musculoskeletal: No clubbing, No tenderness, Swelling Neurological: Normal strength at 5/5 x4 extr, Normal tone, Sensation intact, Cranial nerves 3-12 intact Assessment & Plan - Problems (Diagnosis) (1) Hypoxia Current Visit: Yes Status: Acute (2) CKD (chronic kidney disease) Current Visit: Yes Status: Chronic Qualifiers: Chronic kidney disease stage: stage 4 (severe) Qualified Code(s): N18.4 - Chronic kidney disease, stage 4 (severe) (3) T2DM (type 2 diabetes mellitus) Current Visit: Yes Status: Chronic Qualifiers: Diabetes mellitus manager terminal insulin use: with manager terminal use Diabetes mellitus complication status: with kidney complications Diabetes mellitus complication detail: with chronic kidney disease Chronic kidney disease stage: stage 4 (severe) Qualified Code(s): E11.22 - Type 2 diabetes mellitus with mary ann betic chronic kidney disease; N18.4 - Chronic kidney disease, stage 4 (severe); Z79.4 - alf (current) use of insulin (4) CHF (congestive heart failure), NYHA class III Current Visit: No Status: Acute Qualifiers: Congestive heart failure type: systolic Congestive heart failure c hronicity: acute Qualified Code(s): I50.21 - Acute systolic (congestive) heart failure (5) Advanced chronic obstructive pulmonary disease Current Visit: No Status: Chronic - Plan Continue plan of care as mentioned below: 1. Echocardiogram is pending 2. Continue with nebs, steroids 3. Start low-dose beta-minerva therapy 4. Cardiology consultation Nephrology consultation, and pulmonary consultation appreciated 5. Strict blood pressure and blood sugar control 6. Strict I's and O's 7. Repeat CXR 8. Daily weights 9. Case management consultation for possible home oxygen arrangement 10. Education regarding diet and treatment of congestive heart failure Discharge Plan: Home Plan to discharge in: Greater than 2 days - Advance Directives Does patient have a Living Will: No Does patient have a Durable POA for Healthcare: No - Code Status/Comfort Care Code Status Assessed: Yes Code Status: Full Code Critical Care: No Time Spent Managing PTS Care (In Minutes): 35
[2021-03-02] MEDS: IPRATROPIUM BROM 0.5MG/2.5ML NEB PRN (20:00)
[2021-03-03] MEDS: HEPARIN 5000 UNIT/ML 1 ML VIAL SQ SCH ×2 (00:45→08:45)
[2021-03-03 01:15] VITALS: TEMP 97.6
[2021-03-03 05:11] VITALS: BP 116/60
[2021-03-03 05:35] LABS: Absolute Lymphocytes (CBC) 1.5 K/uL (0.7-4.9); Basophils % 0.4 % (0-1.3); Hematocrit 35.6 % (39.6-49.0); Lymphocytes % 23.5 % (15.3-44.8); MPV 9.3 fL (7.6-11.3); RBC Red Blood Cell Count 3.81 M/uL (4.33-5.43)
[2021-03-03] MEDS: carvediloL 12.5 MG TAB PO SCH (05:50)
[2021-03-03 05:54] LABS: Urine Appearance CLOUDY (Clear); Urine Bilirubin NEGATIVE (Negative); Urine Blood 1+ (Negative); Urine Color YELLOW (Yellow); Urine Glucose 1+ (Negative); Urine Protein 3+ (Negative); Urine Specific Gravity 1.015 (1.005-1.030); Urine Urobilinogen 0.2 mg/dL (0.2-1.0); Urine pH 5.5 (5.0-7.0)
[2021-03-03 06:03] LABS: Urine Microscopic Reflex ORDER UMIC
--- NOTE | 2021-03-03 06:06 | P.PN ---
Subjective Date of Service: 03/03/21 Chief Complaint: CHF exacerbation, hypoxia Physical Examination - Vital Signs Temperature: 97.6 F Blood Pressure: 116/60 Pulse: 65 Respirations: 19 Pulse Ox (%): 98 - Studies Laboratory Data (last 24 hrs) 03/03/21 05:16: WBC 6.30, Hgb 11.9 L, Hct 35.6 L, Plt Count 184 03/02/21 05:30: Sodium 140, Potassium 3.7, BUN 78 H, Creatinine 3.67 H, Glucose 98, Uric Acid 12.0 H, Phosphorus 5.6 H, Total Bilirubin 0.4, AST 25, ALT 29, Alkaline Phosphatase 95 Medications List Reviewed: Yes Assessment & Plan Physician Review Additional Text: COVID: negative CXR: COMPARISON: February 07 TECHNIQUE: AP portable chest image was obtained 02/28/2021 9:44 pm . FINDINGS: No new mass or consolidation. Interstitial markings remain prominent with some patchy alveolar opacity seen. Heart and vasculature are normal. No measurable pleural effusion and no pneumothorax. No acute bony abnormality seen. No acute aortic findings suspected. IMPRESSION: No new mass or consolidation. Chest is not significantly different from the comparison. Physical Exam: General: Alert, In no apparent distress, Oriented x3 Respiratory: Diminished, Crackles/rales Cardiovascular: Regular rate/rhythm, Normal S1 S2, No murmurs Gastrointestinal: Normal bowel sounds, Soft and benign, Non-distended, No tenderness Musculoskeletal: No clubbing, No tenderness, Swelling Neurological: Normal strength at 5/5 x4 extr, Normal tone, Sensation intact, Cranial nerves 3-12 intact Impression: Shortness of breath, hypoxia secondary to acute on chronic systolic CHF complicated with COPD exacerbation Chronic renal disease stage IV Diabetes mellitus type 2 insulin-dependent Plan: 1. We will obtain echocardiogram. Will discuss with cardiology. Continue with IV Bumex and metolazone. 2. Continue with COPD treatmentBrovana. Patient on antibiotic therapy. Will transition to oral medication. 3. Continue with carvedilol. 4. Will discuss with nephrology about her chronic renal disease. 5. Continue 1500 cc/day fluid restriction. 6. Monitor strict input and output. 7. Monitor chest x-ray. 8. Educate on COPD and CHF. 9. Continue Eliquis. CODE STATUS: Full code DVT prophylaxis: Eliquis Advanced care [id number] minutes: Home at discharge. Will need to arrange for home oxygen. Time Spent Managing Pts Care (In Minutes): 55
[2021-03-03 06:07] LABS: Albumin 1.9 g/dL (3.4-5.0); Bilirubin Total 0.3 mg/dL (0.2-1.0); Phosphorus 3.9 mg/dL (2.5-4.9); Potassium 3.7 mmol/L (3.5-5.1)
[2021-03-03 06:09] LABS: Urine Coarse Granular Casts 0-5 /LPF (NONE SEEN)
[2021-03-03 06:10] LABS: Urine Amorphous Sediment 2+ /HPF (NONE SEEN); Urine Bacteria <20 /HPF (NONE SEEN); Urine RBC <5 /HPF (NONE SEEN)
[2021-03-03] MEDS: INSULIN -REGULAR HUMAN 50 UNIT/0.5 ML ML SQ SCH ×2 (07:30→11:30)
--- NOTE | 2021-03-03 08:25 | RAD REPORT ---
EXAM DESCRIPTION: RAD - Chest Single View - 03/03/2021 6:22 am CLINICAL HISTORY: Follow up COPD/CHF Chest pain. COMPARISON: Chest Single View dated 02/28/2021; Chest Single View dated 02/07/2021; Chest Single View dated 02/05/2021; Chest Single View dated 02/03/2021 FINDINGS: Portable technique limits examination quality. Moderate bilateral pulmonary opacities are again seen, appearing stable since prior study. The heart is moderately enlarged with a dual lead pacer/ defibrillator device present. No displaced fractures. IMPRESSION: Moderate CHF pattern is stable since 02/28/2021 study.
[2021-03-03] MEDS: APIXABAN 5 MG TABLET PO SCH (08:45)
[2021-03-03] MEDS: BUMETANIDE 1 MG/4 ML VIAL IV SCH (08:45)
[2021-03-03] MEDS: METOLAZONE 5 MG TABLET PO SCH (08:46)
[2021-03-03] MEDS: IPRATROPIUM BROM 0.5MG/2.5ML NEB PRN (09:05)
[2021-03-03] MEDS: ARFORMOTEROL TARTRATE 15 MCG/2 ML VIAL.NEB NEB SCH (09:05)
--- NOTE | 2021-03-03 12:57 | P.DS ---
Admission Date: 02/28/21 Discharge Date: 03/03/21 Primary Care Provider: [facility]; Pulmonary-Dr. Hodgson Disposition: ROUTINE DISCHARGE Discharge Condition: GOOD Reason for Admission: CHF exacerbation, hypoxia Consultations: Pulmonary-Dr. Hodgson Cardiology-Dr. East Nephrology-Dr. Gonzalez Procedures: COVID: negative CXR: COMPARISON: February 07 TECHNIQUE: AP portable chest image was obtained 02/28/2021 9:44 pm . FINDINGS: No new mass or consolidation. Interstitial markings remain prominent with some patchy alveolar opacity seen. Heart and vasculature are normal. No measurable pleural effusion and no pneumothorax. No acute bony abnormality seen. No acute aortic findings suspected. IMPRESSION: No new mass or consolidation. Chest is not significantly different from the comparison. ECHO 01/2021: CARDIAC HISTORY: CATHERIZATION: YES SURGERY: NO PROSTHETIC VALVE: NO PACEMAKER: YES MEASUREMENTS (cm) DIASTOLIC (NORMALS) SYSTOLIC (NORMALS) IVSd 1.2 (0.6-1.2) LA Diam 3.8 (1.9-4.0) LVEF 28% LVIDd 6.2 (3.5-5.7) LVIDs 5.4 (2.0-3.5) %FS 13% LVPWd 1.2 (0.6-1.2) Ao Diam 3.1 (2.0-3.7) 2 DIMENSIONAL ASSESSMENT: RIGHT ATRIUM: NORMAL LEFT ATRIUM: NORMAL RIGHT VENTRICLE: POSITIVE PERMANENT PACEMAKER LEFT VENTRICLE: DILATED TRICUSPID VALVE: NORMAL MITRAL VALVE: NORMAL PULMONIC VALVE: NORMAL AORTIC VALVE: NORMAL PERICARDIAL EFFUSION: TRACE AORTIC ROOT: NORMAL LEFT VENTRICULAR WALL MOTION: SEVERE GLOBAL HYPOKINESIS DOPPLER/COLOR FLOW: MILD TRICUSPID REGURGITATION. MODERATE PULMONARY HYPERTENSION COMMENTS: SEVERE GLOBAL HYPOKINESIS. MODERATE PULMONARY HYPERTENSION. EJECTION FRACTION 28%. PERMANENT PACEMAKER IN RIGHT VENTRICULAR APEX. TRACE PERICARDIAL EFFUSION. MODERATE FOR PULMONARY HYPERTENSION. RIGHT VENTRICULAR SYSTOLIC PRESSURE 60 mmHg V/Q scan 01/2021: COMPARISON: February 05, 2021 chest x-ray TECHNIQUE: 17.6 Mci [id number] was administered by inhalation. First breath, equilibrium, and washout images of the lungs obtained 7.5 millicuries Technetium-99 MAA was administered intravenously. Anterior, posterior, lateral and oblique views of the lungs were taken. FINDINGS: Perfusion images demonstrate demonstrates a moderate to large segmental defect involving the anterior right lower lobe. This is larger than seen on ventilation images. Small defect of radiotracer involves the left lung base seen on perfusion images. This is larger than seen on ventilation images. IMPRESSION: The patient has a moderate to high probability for a pulmonary embolus Medical Problem List: Acute hypoxic respiratory failure secondary to acute on chronic systolic congestive heart failure with ejection fraction 28% complicated with moderate pulmonary hypertension, trace pericardial effusion, and VQ scan showing moderate to high probability of pulmonary believes him CAD with history of pacemaker Acute on chronic renal disease stage IV Diabetes type 2 with hyperglycemia Hypertension History of CAD History of CVA Diabetic neuropathy Hyperlipidemia COPD with history of tobacco abuse Brief History of Present Illness: 45-year-old male with history of CHF, CAD, hypertension, diabetes, chronic renal disease stage IV and COPD. Patient presented with increasing shortness of breath. Patient was admitted due to hypoxia and CHF exacerbation. Hospital Course: Patient presented with dyspnea secondary to acute on chronic systolic CHF with recent echo showing ejection fraction 20% complicated with moderate pulmonary hypertension, trace pericardial effusion and recent VQ scan done in January showing moderate to high probability of pulmonary embolism. The patient was admitted for treatment. Patient received diuresis with improvement. Patient was seen by nephrology, pulmonology and cardiology. Patient has done well. At discharge patient doing well without any oxygen. For his CHF, patient will continue with 1500 cc/day fluid restriction and low-salt diet. Patient should monitor his weight daily. If his weight increases by more than 5 pounds he is to contact his PCP or machine former for further recommendation. At discharge patient will continue with Bumex 1 mg twice daily and metolazone 5 mg daily. Recommend follow-up with PCP in 1 week to follow-up his hospitalization. Educa tion on CHF provided. For his history of pulmonary embolism, the patient was not able to restart Eliquis upon the last discharge. Patient was provided medication during the course of his stay. At discharge health care social worker helped to make arrangements for the patient to get Eliquis. But the patient could not afford it. Therefore arrangements for the patient to get 2-week sample of Eliquis from pulmonology will be arranged. The patient will be responsible in getting 2 more weeks of medication. He will have to pay farrell for this. He is expected to get insurance in March. Once he gets insurance he will need to get in contact with pulmonology so that a new prescription be provided to continue Eliquis 5 mg 1 pill twice daily. Recommend follow-up with pulmonology within 1 week. For his COPD, patient has done well and in the course of his stay. No need for oxygen at discharge. At discharge patient will continue with Symbicort 2 puffs twice daily and albuterol 2 puffs 3 times a day as needed for shortness of breath. The patient will also continue Levaquin 750 mg daily every 48 hours x 3 doses. Education on COPD provided. Recommend follow-up with pulmonology to further monitor and adjust medication. Patient with history of pacemaker, CAD, CVA and hypertension. At discharge patient will continue with Plavix 75 mg daily, Imdur ER 60 mg daily, Norvasc 5 mg daily, and carvedilol 12.5 mg 1 pill twice daily. Recommend to maintain blood pressure less than 130/80. If blood pressure remains above 140/90 further adjustment may be required. This can be done with the help of his PCP or cardiology. Recommend follow-up with cardiology to further monitor and adjust medication. Patient with diabetic neuropathy. At discharge patient will continue with Neurontin 800 mg 1 pill 3 times a day. Patient with hyperlipidemia. At discharge patient will continue with Crestor 40 mg daily. Patient with diabetes mellitus type 2 with hyperglycemia. Hemoglobin A1c 8.4. At discharge recommend to maintain blood sugar less than 140 fasting and less than 200 for meals. Further adjustment can be done by his PCP. At discharge patient will continue with Lantus 50 units subcu twice daily and Humalog sliding scale. Recommend to recheck hemoglobin A1c every 3 months to monitor his progress. Further adjustment in his medication may be required if blood sugar remains above 200. Follow-up with PCP to further address. Patient with gout. At discharge patient will continue with allopurinol. Patient with tobacco abuse. Tobacco cessation addressed in detail. Vital Signs/Physical Exam: Temp Pulse Resp BP Pulse Ox 97.6 F 65 19 116/60 98 03/03/21 12:56 03/03/21 12:56 03/03/21 12:56 03/03/21 12:56 03/03/21 12:56 General: Alert, In no apparent distress, Oriented x3, Cooperative HEENT: Atraumatic Neck: Supple Respiratory: Clear to auscultation bilaterally Cardiovascular: Normal pulses, Regular rate/rhythm Gastrointestinal: Normal bowel sounds, No ascites, No tenderness, No masses, No rebound, No guarding Musculoskeletal: No erythema, No tenderness, No warmth Integumentary: No tenderness/swelling, No erythema, No warmth, No cyanosis Neurological: Normal speech, Normal strength at 5/5 x4 extr, Normal tone Laboratory Data at Discharge: WBC 6.30 K/uL (4.3-10.9) 03/03/21 05:16 Hgb 11.9 g/dL (13.6-17.9) L 03/03/21 05:16 Hct 35.6 % (39.6-49.0) L 03/03/21 05:16 Plt Count 184 K/uL (152-406) 03/03/21 05:16 PT 14.8 SECONDS (9.5-12.5) H 02/28/21 20:59 INR 1.28 02/28/21 20:59 Sodium 138 mmol/L (136-145) 03/03/21 05:16 Potassium 3.7 mmol/L (3.5-5.1) 03/03/21 05:16 BUN 80 mg/dL (7-18) H 03/03/21 05:16 Creatinine 3.60 mg/dL (0.55-1.3) H 03/03/21 05:16 Glucose 147 mg/dL (74-106) H 03/03/21 05:16 Uric Acid 12.0 mg/dL (3.5-7.2) H 03/02/21 05:30 Phosphorus 3.9 mg/dL (2.5-4.9) 03/03/21 05:16 Magnesium 1.9 mg/dL (1.8-2.4) 03/01/21 03:30 Total Bilirubin 0.3 mg/dL (0.2-1.0) 03/03/21 05:16 AST 27 U/L (15-37) 03/03/21 05:16 ALT 33 U/L (12-78) 03/03/21 05:16 Alkaline Phosphatase 105 U/L (45-117) 03/03/21 05:16 Troponin I 0.08 ng/mL (0.0-0.045) H 03/01/21 11:18 Triglycerides 110 mg/dL (<150) 03/01/21 03:30 Cholesterol 145 mg/dL (<200) 03/01/21 03:30 HDL Cholesterol 38 mg/dL (40-60) L 03/01/21 03:30 Cholesterol/HDL Ratio 3.82 03/01/21 03:30 Home Medications: Bumetanide [Bumex*] 1 tab PO BID 01/02/21 Carvedilol [Coreg] 1 tab PO BID 01/02/21 Clopidogrel Bisulfate [Plavix*] 1 tab PO DAILY 01/02/21 Gabapentin 1 tab PO TID 01/02/21 Insulin Glargine,Hum.rec.anlog [Lantus] 50 units SQ BID 01/02/21 Insulin Lispro [Humalog] See Protocol SQ TID 01/02/21 Isosorbide Mononitrate [Isosorbide Mononitrate ER] 1 tab PO DAILY 01/02/21 Rosuvastatin Calcium [Crestor] 1 tab PO DAILY 01/02/21 metOLazone [Metolazone] 1 tab PO DAILY 01/02/21 Allopurinol 50 mg PO SEECOM 02/03/21 Amlodipine [Norvasc*] 5 mg PO DAILY 02/03/21 Albuterol Sulfate [Proair Hfa] 2 puff IH TID PRN #1 hfa.aer.ad 02/08/21 Budesonide/Formoterol Fumarate [Symbicort 160-4.5 Mcg Inhaler] 2 puff IH BID #1 hfa.aer.ad 02/08/21 Apixaban [Eliquis] 5 mg PO BID #60 tablet 03/03/21 Calcitrol [Rocaltrol*] 0.25 mcg PO Q48H #15 cap 03/03/21 levoFLOXacin [Levaquin*] 750 mg PO Q48H #3 tab 03/03/21 New Medications: Apixaban [Eliquis] 5 mg PO BID #60 tablet levoFLOXacin [Levaquin*] 750 mg PO Q48H #3 tab Calcitrol [Rocaltrol*] 0.25 mcg PO Q48H #15 cap Physician Discharge Instructions: OK TO DC IV AND DC HOME FOLLOW-UP WITH PRIMARY CARE PROVIDER IN 1-2 WEEKS FOLLOW-UP WITH CARDIOLOGY IN 1-2 WEEKS RETURN TO THE ER IF CALL or TEXT DR. GOMEZ AT [phone] IF ANY QUESTIONS REGARDING HOSPITAL STAY. PLEASE CALL THE FLOOR AT [phone] IF ANY MEDICATION OR NURSING QUESTIONS. Patient presented with dyspnea secondary to acute on chronic systolic CHF with recent echo showing ejection fraction 20% complicated with moderate pulmonary hypertension, trace pericardial effusion and recent VQ scan done in January showing moderate to high probability of pulmonary embolism. The patient was admitted for treatment. Patient received diuresis with improvement. Patient was seen by nephrology, pulmonology and cardiology. Patient has done well. At discharge patient doing well without any oxygen. For his CHF, patient will continue with 1500 cc/day fluid restriction and low-salt diet. Patient should monitor his weight daily. If his weight increases by more than 5 pounds he is to contact his PCP or machine former for further recommendation. At discharge patient will continue with Bumex 1 mg twice daily and metolazone 5 mg daily. Recommend follow-up with PCP in 1 week to follow-up his hospitalization. Education on CHF provided. For his history of pulmonary embolism, the patient was not able to restart Eliquis upon the last discharge. Patient was provided medication during the course of his stay. At discharge health care social worker helped to make arrangements for the patient to get Eliquis. But the patient could not afford it. Therefore arrangements for the patient to get 2-week sample of Eliquis from pulmonology will be arranged. The patient will be responsible in getting 2 more weeks of medication. He will have to pay farrell for this. He is expected to get insurance in March. Once he gets insurance he will need to get in contact with pulmonology so that a new prescription be provided to continue Eliquis 5 mg 1 pill twice daily. Recommend follow-up with pulmonology within 1 week. For his COPD, patient has done well and in the course of his stay. No need for oxygen at discharge. At discharge patient will continue with Symbicort 2 puffs twice daily and albuterol 2 puffs 3 times a day as needed for shortness of breath. The patient will also continue Levaquin 750 mg daily every 48 hours x 3 doses. Education on COPD provided. Recommend follow-up with pulmonology to f urther monitor and adjust medication. Patient with history of pacemaker, CAD, CVA and hypertension. At discharge patient will continue with Plavix 75 mg daily, Imdur ER 60 mg daily, Norvasc 5 mg daily, and carvedilol 12.5 mg 1 pill twice daily. Recommend to maintain blood pressure less than 130/80. If blood pressure remains above 140/90 further adjustment may be required. This can be done with the help of his PCP or cardiology. Recommend follow-up with cardiology to further monitor and adjust medication. Patient with diabetic neuropathy. At discharge patient will continue with Neurontin 800 mg 1 pill 3 times a day. Patient with hyperlipidemia. At discharge patient will continue with Crestor 40 mg daily. Patient with diabetes mellitus type 2 with hyperglycemia. Hemoglobin A1c 8.4. At discharge recommend to maintain blood sugar less than 140 fasting and less than 200 for meals. Further adjustment can be done by his PCP. At discharge patient will continue with Lantus 50 units subcu twice daily and Humalog sliding scale. Recommend to recheck hemoglobin A1c every 3 months to monitor his progress. Further adjustment in his medication may be required if blood sugar remains above 200. Follow-up with PCP to further address. Patient with gout. At discharge patient will continue with allopurinol. Patient with tobacco abuse. Tobacco cessation addressed in detail. Followup: NONE,NONE [Primary Care Provider] - Time spent managing pt's care (in minutes): 55
[2021-03-03 13:10] VITALS: O2SAT 94
--- NOTE | 2021-03-04 02:47 | PN ---
Date of Progress Note: 03/03/2021 Chief Complaint: Acute on chronic kidney injury. Subjective: The patient has advanced chronic kidney disease stage 4. He was admitted for acute kidn ey injury secondary to cardiorenal syndrome. He was complaining of shortness. He was started on diu resis. Chest x-ray showed some interstitial pulmonary edema. He has fluid overload. He is responde d to diuretics. He is feeling better. BUN is 78, creatinine is 3.6. Electrolytes are as follows; s odium 140, potassium 3.7, bicarbonate 27, phosphorus 5.6, albumin 1.9. Impression And Plan: 1.Acute kidney injury on advanced chronic kidney disease. Continue to monitor fluid balance. Gayla nue nighttime diuretics. Patient will continue Bumex. Metolazone was stopped. 2.Hypertension. Blood pressure is improving. Continue current treatment with blood pressure medica tion. 3.Congestive heart failure. Patient will follow up with analytical sciences director. Continue low-sodium diet. 4.Proteinuria due to diabetic kidney disease. The patient has underlying stage 4 chronic kidney dis ease secondary to diabetes. Monitor proteinuria and advance KAREN inhibitor as tolerated. EB/MODL Voice ID: [id number] Report ID: [id number]
[2021-03-04] MEDS ORDERED: levoFLOXacin 750 MG TAB PO SCH (09:00)
--- NOTE | 2021-03-04 21:25 | CON ---
Date of Consultation: 03/01/2021 Reason For Consultation: Congestive heart failure. History Of Present Illness: Mr. Mcelroy is an unfortunate 45-year-old male, has a history of chronic ischemic cardiomyopathy, CVA, diabetes, chronic congestive heart failure. He has a pacemaker and def ibrillator. Comes in with cough, diarrhea, and fever. Noted to be in CHF by x-ray. Denied any ches t pain, palpitation, or syncope. Past Medical History: As stated above. Allergies: NONE. Review of Systems: Negative. Social History: Negative. Family History: Noncontributory. Medications: At home include carvedilol, Bumex, clopidogrel, gabapentin, metolazone, Imdur, gabapent in, amlodipine, insulin, Symbicort. Physical Examination: Vital Signs: When he came in, his blood pressure was 105/70. He was in sinus rhythm with the pulse of 89. O2 saturation was initially 77% on room air. It was 98% on a 15% non-rebreather. HEENT: Negative. Neck: Supple with no bruit, lymphadenopathy, or JVD. Chest: Reveals rales at both bases. Cardiac: Exam revealed S3 gallops with regular rhythm and rate. Abdomen: Benign. Extremities: Revealed 2+ edema. Imaging: Chest x-ray was actually unremarkable. Laboratory Data: His creatinine was 3.67. Impression And Plan: 1.Congestive heart failure, acute on chronic systolic exacerbation. He is status post defibrillator and pacemaker. He is on carvedilol. He is on Bumex. He is not a candidate for KAREN inhibitor or En tresto because of his creatinine. Nephrology is following. 2.Chronic obstructive pulmonary disease. Pulmonary is following. 3.Atrial fibrillation, on Eliquis. I will continue his metolazone, carvedilol Bumex, diurese him. He is on antibiotics. He is on inhalers. I have nothing to add at this point to Mr. Mcelroy's regime n. We will be happy to see him as an outpatient. I think down the road Mr. Mcelroy should be conside red for a transplant and I would like to see him in the office and discuss that with him. LEXI/EUGENIO Voice ID: [id number] Report ID: [id number]
[2021-03-06 07:02] LABS: Vitamin D 1,25-Dihydroxy Total 29 pg/mL (18-72); Vitamin D,1,25-OH2, D2 29 pg/mL
== END 2021-03-03 14:38 | disposition home or self-care (01) | DRG 291 ==
LOC: ER 20:00 → ERHOLD 23:37 → 2ND 03-01 02:46
PROVIDERS: ADMIT Hospitalist; ATTEND Family Medicine
PROC: 5A09457 Assistance with Respiratory Ventilation, 24-96 Consecutive Hours, Continuous Positive Airway Pressure (ICD-10-PCS; principal; 2021-03-01)
DX: I13.0 Hypertensive heart and chronic kidney disease with heart failure and stage 1 through stage 4 chronic kidney disease, or unspecified chronic kidney disease (principal); I50.23 Acute on chronic systolic (congestive) heart failure; J96.01 Acute respiratory failure with hypoxia; N18.4 Chronic kidney disease, stage 4 (severe); N17.9 Acute kidney failure, unspecified; J44.1 Chronic obstructive pulmonary disease with (acute) exacerbation; N25.81 Secondary hyperparathyroidism of renal origin; I31.3 Pericardial effusion (noninflammatory); E11.22 Type 2 diabetes mellitus with diabetic chronic kidney disease; E11.65 Type 2 diabetes mellitus with hyperglycemia; E11.40 Type 2 diabetes mellitus with diabetic neuropathy, unspecified; I25.10 Atherosclerotic heart disease of native coronary artery without angina pectoris; M10.9 Gout, unspecified; E78.5 Hyperlipidemia, unspecified; I48.91 Unspecified atrial fibrillation; I27.20 Pulmonary hypertension, unspecified; I25.2 Old myocardial infarction; R77.8 Other specified abnormalities of plasma proteins; Z79.4 Long term (current) use of insulin; Z79.51 Long term (current) use of inhaled steroids; Z86.73 Personal history of transient ischemic attack (TIA), and cerebral infarction without residual deficits; Z95.5 Presence of coronary angioplasty implant and graft; Z95.810 Presence of automatic (implantable) cardiac defibrillator; Z79.899 Other long term (current) drug therapy; Z87.891 Personal history of nicotine dependence; Z86.711 Personal history of pulmonary embolism; Z79.02 Long term (current) use of antithrombotics/antiplatelets; Z79.52 Long term (current) use of systemic steroids; Z79.01 Long term (current) use of anticoagulants; Z20.822 Contact with and (suspected) exposure to COVID-19
CPT/HCPCS: 0241U; 36415; 71045; 80048; 80053; 80061; 80069; 80076; 81003; 81015; 82652; 82728; 82947; 83605; 83735; 83880; 83970; 84100; 84145; 84439; 84443; 84484; 84550; 85025; 85610; 86140; 87040; 93005; 94660; 94760; 96374; 96375; 99285; J0456; J1644; J1940; J2405; J2543; J7050; J7605; U0003

== ENCOUNTER 2021-04-04 02:10 | Inpatient (IN) | payer OTHER ==
--- OUTSIDE RECORDS SUMMARY | 2021-04-04 03:06 | XMS REPORT | Continuity of Care Document ---
:1975 Author Organization [facility] t Address 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 Primary Care Physician CONTRERAS Attending Clinician Unavailable CONTRERAS Attending Clinician [phone] NURSE Attending Clinician Unavailable FRANZ Attending Clinician Unavailable OSEI Attending Clinician [phone] DR PATRICK Attending Clinician Unavailable DR DIANE Attending Clinician Unavailable Kathleen Riddle MD Attending Clinician Ayden SCHULER Attending Clinician Nuvia Lugo MD Attending Clinician Jackie Nguyen MD Attending Clinician Deacon Nair MD Attending Clinician OMSTEFANI Attending Clinician Unavailable OMSTEFANI Attending Clinician [phone] IRIZARRY Attending Clinician Unavailable IRIZARRY Attending Clinician [phone] Ayden Serra MD Attending Clinician Landry SCHULER Attending Clinician Lilliam SCHULER Attending Clinician Neida Lugo MD Attending Clinician Warren Blunt MD Attending Clinician LUBNA Attending Clinician Unavailable LUBNA Attending Clinician [phone] JERRY HUMMEL Attending Clinician Unavailable AYDEN SERRA Attending Clinician Unavailable [facility] Attending Clinician Unavailable SIDDHARTHA Attending Clinician Unavailable ENRIQUE Attending Clinician [phone] JONAS Attending Clinician Unavailable MIMA MARQUIS Attending Clinician Unavailable RADHA MURGUIA Attending Clinician Unavailable KASSI KULKARNI Attending Clinician Unavailable MANAV Attending Clinician [phone] SWETHA Attending Clinician Unavailable VERObdulia Attending Clinician Unavailable DELAROSA Attending Clinician [phone] CANAMABecky Attending Clinician Unavailable TIMA Attending Clinician Unavailable MICAH Attending Clinician Unavailable FOREIGN Attending Clinician Unavailable SHELBY Attending Clinician [phone] DESTINY Attending Clinician Unavailable ALLISON Attending Clinician [...] Expiration Date S renetta JAVI CARE - [id number] GENERIC - JAVI CARE [facility]-MEDICAID - [id number] MEDICAID MEDICARE PART A [id number] 2019 \\T\\ B - MEDICARE 00:00:00 Problems [...] be different from the original. 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 Seizure Seizure Disease Active [facility] [...] Disease Active [facility] Diabetic Diabetic Disease Active [facility] neuropathy [facility] Hyperlipid Hyperlipid Disease Active [facility] em[facility] Carpal Carpal Disease Active [facility] tunnel [facility] Allergies, Adverse Reactions, Alerts Allergy Allergy Status Severity Reaction(s) Onset Inactive Treating Comm ents Source Name Type Date Date Clinician NO KNOWN Allergy Active [facility] Social History Social Habit Start Date Stop Date Quantity Comments Source Alcohol intake 2019-07-03 [facility] 00:[facility]:00 History of tobacco 2019-04-04 Current non-smoker [facility] use 00:00:00 Nutritional 2019-04-04 [facility] observable 00:00:00 Tobacco use and 2019-04-04 : No Details [facility] exposure 00:00:00 Available Quantity Details - : No Details Available Health-related 2019-04-04 Access [facility] Behavior 00:00:[address] [facility] [...] [facility] - pack-years 00:00:00 00:00:00 [facility] Alcohol Comment 2012-10-15 2012-10-[address] [facility] - 00[facility]00:00 00:00:00 [facility] Smoking Status Start Date Stop Date Source Former smoker 2020-04-26 00:00:00 2020-04-26 00:00:00 [facility] Unknown if ever smoked [facility] Never smoker [facility] Medications Ordered Filled Start Stop Current Ordering Indication Dosage Frequency Signature Comments Components Source Medication Medication Date Date Medication? Clinician (SIG) Name Name metolazone 2020-03 No take 1 Acces s 5 mg tablet 2-30 tablet by [facility] lt 00:00: oral route 00 every day bumetanide 2020-03 No take 1 Acces s 1 mg tablet 2-30 tablet (1 Hea lth 00:00: mg) by 00 oral route 2 times per day rosuvastati 2020-03 No 1{table Q1D take 1 A ccess n 40 mg 2-30 t} tablet by Health tablet 00:00: oral route 00 every day carvedilol 2020-03 No 1{table Q12H take 1 Ac cess 12.5 mg 2-30 t} tablet by Health tablet 00:00: oral route 00 2 times every day with food amlodipine 2020-03 No take 1 Acces s 5 mg tablet 2-30 tablet (5 Hea lth 00:00: mg) by 00 oral route once daily allopurinol 2020-03 No take 1/2 Dx: Ac [...] Q1W take 1 A ccess 1,250 mcg -04-24 le} capsule by [facility] (50,000 00:00: 00:00 oral route unit) 00 :00 every capsule week for 12 weeks Vitamin D2 2020-03- No 1{capsu Q1W take 1 A ccess 1,250 mcg -04-24 le} capsule by [facility] (50,000 00:00: 00:00 oral route unit) 00 :00 every capsule week for 12 weeks Vitamin D2 2020-03- No 1{capsu Q1W take 1 A ccess 1,250 mcg 04-02 le} capsule by [facility] (50,000 00:00: 00:00 oral route unit) 00 :00 every capsule week for 12 weeks Vitamin D2 2020-03- No 1{capsu Q1W take 1 A ccess 1,250 mcg 04-02 le} capsule by [facility] (50,000 00:00: 00:00 oral route unit) 00 :00 every capsule week for 12 weeks prednisone 2020-03 No take 2 Acces s 20 mg 1-03 tablet by Health tablet 00:00: oral route 00 every day x 5 days Levemir 2020-03 No 50U Q12H inject 50 Acces s FlexTouch 1-03 unit by [facility] U-100 00:00: subcutaneo Insulin 100 00 us route 2 unit/mL (3 times mL) every day subcutaneou s pen bumetanide 2020-03 No take 1 Acces s 1 mg tablet 1-03 tablet [facility] 00:[facility]: mg) by 00 oral route 2 times per day metolazone 2020-03 No take 1 Acces s 5 mg tablet 1-03 tablet by [facility] 00:00: oral route 00 every day gabapentin [...] s 5 mg tablet 1-03 tablet (5 [facility] 00:[facility]: mg) by 00 oral route once [...] 50 Acces s FlexTouch 1-03 unit by [facility] U-100 00:00: subcutaneo Insulin 100 00 us [...] times mL) every day subcutaneou s pen gabapentin 2020-03 No 1{table Q8H take 1 Ac cess 800 mg 1-03 t} tablet by Health tablet 00:00: oral route 00 3 times every day clopidogrel 2020-03 No take 1 Acce ss 75 mg 1-03 tablet (75 Health tablet 00:00: mg) by 00 oral route once daily isosorbide 2020-03 No take 1 Acces s mononitrate -03 tablet (60 He alth ER 60 mg 00:00: mg) by tablet,exte 00 oral route nded once daily release 24 in the hr morning bumetanide 2020-03- No take 1 Acce ss 1 mg tablet 03-3130 tablet (1 He alth 00:00: 00:00 mg) by 00 :00 oral route 2 times per day metolazone 2020-03- No take 1 Acce ss 5 mg tablet 03-3130 tablet by He alth 00:00: 00:00 oral route 00 :00 every day carvedilol 2020-03- No 1{table Q12H take 1 A ccess 12.5 mg 03-3130 t} tablet by Health tablet 00:00: 00:00 oral route 00 :00 2 times every day with food amlodipine 2020-03- No take 1 Acce ss 5 mg tablet 03-31 tablet (5 He alth 00:00: 00:00 mg) by 00 :00 oral route once daily rosuvastati 2020-03- No 1{table Q1D take 1 Access n 40 mg 03-3130 t} tablet by Health tablet 00:00: 00:00 oral route 00 :00 every day cyclobenzap 2020-0 No 1{table BID take 1 A ccess rine 5 mg 9-07 t} tablet by Healt h tablet 00:00: oral route 00 2 times every day as needed for low back pain cyclobenzap 2020-0 No 1{table BID take 1 A ccess rine 5 mg 9-07 t} tablet by [facility]alt [facility] tablet 00:00: oral route 00 2 times every day as needed for low back pain cyclobenzap 2020-0 No 1{table BID take 1 A ccess rine 5 mg 9-07 t} tablet by [facility]alt [facility] tablet 00:00: oral route 00 2 times every day as needed for low back pain cyclobenzap 2020-0 No 1{table BID take 1 A ccess [...] Q1D take 1 Access n 40 mg 8-10 06- t} tablet by Health tablet 00:00: 00:00 oral route 00 :00 every day rosuvastati 2020-0 2021- No 1{table Q1D take 1 Access n 40 mg 8-10 06- t} tablet by Health tablet 00:00: 00:00 oral route 00 :00 every day rosuvastati 2020-0 2021- No 1{table Q1D take 1 Access n 40 mg 11-02- t} tablet by Health tablet 00:00: 00:00 oral route 00 :00 every day rosuvastati 2020-0 2021- No 1{table Q1D take 1 Access n 40 mg -10 06- t} tablet by Health tablet 00:00: 00:00 oral route 00 :00 every day Vitamin D2 2020-0 2021- No 1{capsu Q1W take 1 A ccess 1,250 mcg 8- 10-29 le} capsule by [facility] (50,000 00:00: 00:00 oral route unit) 00 :00 every capsule week for 12 weeks Vitamin D2 2020-0 2021- No 1{capsu Q1W take 1 A ccess 1,250 mcg 8- 10-29 le} capsule by [facility] (50,000 00:00: 00:00 oral route unit) 00 :00 every capsule week for 12 weeks Vitamin D2 2020-0 2021- No 1{capsu Q1W take 1 A ccess 1,250 mcg 8- 10-29 le} capsule by [facility] (50,000 00:00: 00:00 oral route unit) 00 :00 every capsule week for 12 weeks Vitamin D2 2021-0 2021- No 1{capsu Q1W take 1 A ccess 1,250 mcg 8- 10-29 le} capsule by [facility] (50,000 00:00: 00:00 oral route unit) 00 :00 every capsule week for 12 weeks Vitamin D2 2020- No 1{capsu Q1W take 1 A ccess 1,250 mcg 8- 10-29 le} capsule by [facility] (50,000 00:00: 00:00 oral route unit) 00 :00 every capsule week for 12 weeks Vitamin D2 2020- No 1{capsu Q1W take 1 A ccess 1,250 mcg 8- 10-29 le} capsule by [facility] (50,000 00:00: 00:00 oral route unit) 00 :00 every capsule week for 12 weeks Vitamin D2 2020- No 1{capsu Q1W take 1 A ccess 1,250 mcg 8- 10-29 le} capsule by [facility] (50,000 00:00: 00:00 oral route unit) 00 :00 every capsule week for 12 weeks Vitamin D2 2020- No 1{capsu Q1W take 1 A ccess 1,250 mcg 8- 10-29 le} capsule by [facility] (50,000 00:00: 00:00 oral route unit) 00 :00 every capsule week for 12 weeks Vitamin D2 2020- No 1{capsu Q1W take 1 A ccess 1,250 mcg 8- 10-29 le} capsule by [facility] (50,000 00:00: 00:00 oral route unit) 00 :00 every capsule week for 12 weeks Vitamin D2 2020- No 1{capsu Q1W take 1 A ccess 1,250 mcg 8- 10-29 le} capsule by [facility] (50,000 00:00: 00:00 oral route unit) 00 :00 every capsule week for 12 weeks Vitamin D2 2020- No 1{capsu Q1W take 1 A ccess 1,250 mcg 8- 10-29 le} capsule by [facility] (50,000 00:00: 00:00 oral route unit) 00 :00 every capsule week for 12 weeks Vitamin D2 2020- No 1{capsu Q1W take 1 A ccess 1,250 mcg 11-02 le} capsule by [facility] (50,000 00:00: 00:00 oral route unit) 00 :00 every capsule week for 12 weeks tramadol 50 2020-0 No 1{table Q12H take 1 Dx: A ccess mg tablet 8-03 t} tablet by M79.671, H ealt 00:00: oral route M79.644, 00 every 12 M14.679, hours as E11.621, needed E11.40 amlodipine 0 No take 1 Acces s 5 mg tablet 8-03 tablet (5 a lt 00:00: mg) by 00 oral route once [...] 5 mg tablet 8-03 tablet [facility]: oral route 00 every day bumetanide No take 1 Acces s 1 mg tablet 8-03 tablet (1 a lt 00:00: mg) by 00 oral route [...] by 00 oral route once daily carvedilol 2020-0 No 1{table Q12H take 1 Ac cess [...] 00:00: oral route 00 every day bumetanide 0 No take 1 Acces [...] ccess mg tablet 8-03 t} tablet by 79.671, H ealth 00:00: oral route M79.644, 00 every 12 M14.679, hours as E11.621, needed E11.40 amlodipine 0 No take 1 Acces s 5 mg tablet 8-03 tablet (5 Hea lth 00:00: mg) by 00 oral route once daily carvedilol 2020-0 No 1{table Q12H take 1 Ac cess 12.5 mg 8-03 t} tablet by Health tablet 00:00: oral route 00 2 times every day with food clopidogrel 0 No take 1 Acce ss 75 mg [...] meals Humalog 2020- No inject Access KwikPen 10-2914 5-10 Units Healt h (U-100) 00:00: 00:00 by Insulin 100 00 :00 Subcutaneo unit/mL us route 3 subcutaneou times per s day on a medium sliding scale three times a day before meals Humalog 2020- No inject Access KwikPen 10-2914 [...] route 00 :00 every day atorvastati 2020-0 2020- No take 1 Acc ess n 80 mg 10-29 tablet by Health tablet 00:00: 00:00 Oral route 00 :00 1 time per day atorvastati 2020-0 2020- No take 1 Acc ess n 80 mg 10-29 tablet by Health tablet 00:00: 00:00 Oral route 00 :00 1 time per day atorvastati 2020-0 1- No take 1 Acc ess n 80 mg 10-29 tablet by Health tablet 00:00: 00:00 Oral route 00 :00 1 time per day atorvastati 2020-0 1- No take 1 [...] 00 :00 1 time per day atorvastati 2020- No take 1 [...] 00 :00 1 time per day carvedilol 2020- No take 1 Acce [...] every Medical tablet 10 evening. Center isosorbide 2020- Yes Chronic 60mg QD Take [address] [facility] mononitrate 7-04 Stable by mouth Siddhartha kes - (IMDUR) 60 13:32: Angina daily. Med ical MG 24 hr 10 [facility] tablet acetaminoph 2020-0 Yes 1000mg Take 1,[address] en [...] Luke s - tablet 13:32: daily. Medical [address] [place] [address] clopidogrel Yes 75mg QD Take [address] (PLAVIX) 75 7-04 by mouth Luke s - mg tablet 13:32: daily. Medica l [address] [place] [address] bumetanide Yes 1mg Q.5D Take 1 mg [...] by mouth. [facility] - tablet 13:32: Medical [address] [place] [address] atorvastati Yes 80mg QD Take [address] n (LIPITOR) 7-04 by mouth Luke s - 80 MG 13:32: every Medical tablet 10 evening. Center [place] isosorbide Yes Chronic 60mg QD Take 60 [...] available per doctor office . aspirin 81 2021-0 Yes 81mg QD Take [address] MG chewable 7-04 by mouth Luke s - tablet 13:32: daily. [address] clopidogrel Yes 75mg QD Take [address] (PLAVIX) 75 7-04 by mouth Luke s - mg tablet 13:32: daily. Medica l [address] [place] [address] bumetanide Yes 1mg Q.5D Take 1 mg [...] 7-04 by mouth. [facility] - tablet 13:32: [address] atorvastati Yes 80mg QD Take [address] n (LIPITOR) 7-04 by mouth Luke s - 80 MG 13:32: every Medical tablet 10 evening. [facility] [place] isosorbide Yes Chronic 60mg QD Take 60 [...] mouth Luke s - tablet 13:32: daily. [address] clopidogrel Yes 75mg QD Take [address] (PLAVIX) 75 7-04 by mouth Luke s - mg tablet 13:32: daily. Medica l [address] [place] [address] bumetanide Yes 1mg Q.5D Take 1 mg [...] mouth. [facility] - tablet 13:32: Medical [facility] [place] atorvastati Yes 80mg QD Take [address] n (LIPITOR) 7-04 by mouth Luke s - 80 MG 13:32: every Medical tablet 10 evening. [facility] [place] isosorbide Yes Chronic 60mg QD Take 60 [...] tablet 13:32: daily. Medica l 10 [facility] [place] bumetanide Yes 1mg Q.5D Take 1 mg [...] by mouth. [facility] - tablet 13:32: Medical [address] [place] [address] atorvastati Yes 80mg QD Take [address] n (LIPITOR) 7-04 by mouth Luke s - 80 MG 13:32: every Medical tablet 10 evening. [facility] [place] isosorbide Yes Chronic 60mg QD Take 60 [...] mouth Luke s - tablet 13:32: daily. [address] clopidogrel Yes 75mg QD Take [address] (PLAVIX) 75 7-04 by mouth Luke s - mg tablet 13:32: daily. Medica l [address] [place] [address] bumetanide Yes 1mg Q.5D Take 1 mg [...] 7-04 by mouth. [facility] - tablet 13:32: [address] atorvastati Yes 80mg QD Take [address] n (LIPITOR) 7-04 by mouth Luke s - 80 MG 13:32: every Medical tablet 10 evening. [facility] [place] isosorbide Yes Chronic 60mg QD Take 60 [...] mouth Luke s - tablet 13:32: daily. [address] clopidogrel Yes 75mg QD Take [address] (PLAVIX) 75 7-04 by mouth Luke s - mg tablet 13:32: daily. Medica l [address] [place] [address] bumetanide Yes 1mg Q.5D Take 1 mg [...] by mouth. [facility] - tablet 13:32: Medical [address] [place] [address] atorvastati Yes 80mg QD Take [address] [facility] (LIPITOR) 7-04 by mouth Luke s - 80 MG 13:32: every Medical tablet 10 evening. [facility] [place] isosorbide Yes Chronic 60mg QD Take 60 [...] mouth Luke s - tablet 13:32: daily. [address] clopidogrel Yes 75mg QD Take [address] (PLAVIX) 75 7-04 by mouth Luke s - mg tablet 13:32: daily. Medica l 10 [facility] [place] bumetanide Yes 1mg Q.5D Take 1 mg [...] 7-04 by mouth. [facility] - tablet 13:32: [address] bisacodyL Yes 5mg Take [address] [facility] [...] per tablet daily for 7 days. doxycycline 2020-0 2020- No 100mg Q.5D Take 1 [facility] [...] St -clavulanat 7-04 07-04 tablet by Siddhartha Mandics - e 00:00: 00:00 mouth Medical (AUGMENTIN) [...] St -clavulanat -07 03-04 tablet by Siddhartha kes - e 00:00: [...] 1{tbl} Take [address] -clavulanat 09-29 tablet by Siddhartha kes - e 00:00: 00:00 mouth Medical (AUGMENTIN) 00 :00 every 12 Cent er 875-125 mg (twelve) per tablet hours for 7 days. doxycycline 2020- No 100mg Take [address] (MONODOX) 09-29 capsule [facility] - 100 MG 00:00: 00:00 (100 mg Medical capsule 00 :00 total) by Center mouth every 12 (twelve) hours for 7 days. Levemir No 50U Q12H inject 50 Acces s FlexTouch 6-22 unit by [facility] 00:00: subcutaneo Insulin 100 00 us route 2 unit/mL (3 times mL) every day subcutaneou s pen Levemir No 50U Q12H inject 50 Acces s FlexTouch 6-22 unit by [facility] 00:00: subcutaneo Insulin 100 00 us route 2 unit/mL (3 times mL) every day subcutaneou s pen Levemir No 50U Q12H inject 50 Acces s FlexTouch 6-22 unit by [facility] 00:00: subcutaneo Insulin 100 00 us route 2 unit/mL (3 times mL) every day subcutaneou s pen Levemir No 50U Q12H inject 50 Acces s FlexTouch 6-22 unit by [facility] 00:00: subcutaneo Insulin 100 00 us route 2 unit/mL (3 times mL) every day subcutaneou s pen Levemir No 50U Q12H inject 50 Acces s FlexTouch 6-22 unit by [facility] 00:00: subcutaneo Insulin 100 00 us route 2 unit/mL (3 times mL) every day subcutaneou s pen Levemir No 50U Q12H inject 50 Acces s FlexTouch 6-22 unit by [facility] 00:00: subcutaneo Insulin 100 00 us route 2 unit/mL (3 times mL) every day subcutaneou s pen Levemir 0 No 50U Q12H inject 50 Acces s FlexTouch 6-22 unit by [facility] [employer] 00:00: subcutaneo Insulin 100 00 us route 2 unit/mL (3 times mL) every day subcutaneou s pen Levemir No 50U Q12H inject 50 Acces s FlexTouch 09-17 unit by [facility]-Icera 00:00: subcutaneo Insulin 100 00 us route 2 unit/mL (3 times mL) every day subcutaneou s pen Levemir 2020- No 50U Q12H inject 50 Acce ss FlexTouch 09-17 unit by [facility] 00:00: 00:00 subcutaneo Insulin 100 00 :00 us route 2 unit/mL (3 times mL) every day subcutaneou s pen Levemir 2020- No 50U Q12H inject 50 Acce ss FlexTouch 09-17 unit by [facility] 00:00: 00:00 subcutaneo Insulin 100 00 :00 us route 2 unit/mL (3 times mL) every day subcutaneou s pen Levemir 2020- No 50U Q12H inject 50 Acce ss FlexTouch 09-17 unit by [facility] 00:00: 00:00 subcutaneo Insulin 100 00 :00 us route 2 unit/mL (3 times mL) every day subcutaneou s pen Levemir 2020- No 50U Q12H inject 50 Acce ss FlexTouch 09-17 unit by [facility] 00:00: 00:00 subcutaneo Insulin 100 00 :00 [...] Access en 300 09-17 t} tablet by [email or web address], Heobdulia lth mg-codeine 00:00: 00:00 oral route M14.679, [...] ccess mg tablet 09-17 t} tablet by [facility] 00:00: 00:00 oral route 00 :00 every day acetaminoph 2020- No 1{table Q8H take 1 Dx: Access en 300 09-17 t} tablet by [email or web address] Soria lth mg-codeine 00:00: 00:00 oral route M14.679, [...] ccess mg tablet 09-17 t} tablet by [facility] 00:00: 00:00 oral route 00 :00 [...] ccess mg tablet 09-17 t} tablet by [facility] 00:00: 00:00 oral route 00 :00 every [...] needed Humalog 2020- No inject Access KwikPen 09-17- 5-10 Units Healt h (U-100) 00:00: 00:00 [...] ccess mg tablet 09-17 t} tablet by [facility] 00:00: 00:00 oral route 00 :00 every day acetaminoph 2020- No 1{table Q8H take 1 Dx: Access en 300 09-17 t} tablet by Dominique Laird lth mg-codeine 00:00: 00:00 oral route M14.679, 60 mg 00 :00 every 8 E11.621, tablet hours as E11.40 needed Humalog 2020- No inject Access KwikPen 09-17- 5-10 Units Healt h (U-100) 00:00: 00:00 [...] Access en 300 09-17 t} tablet by [email or web address], Dominique lth mg-codeine 00:00: 00:00 oral route M14.679, 60 mg 00 :00 every 8 E11.621, tablet hours as E11.40 needed Humalog 2020- No inject Access KwikPen 09-17- 5-10 Units Healt h (U-100) 00:00: 00:00 [...] ccess mg tablet 09-17 t} tablet by [facility] 00:00: 00:00 oral route 00 :00 every [...] Q8H take 1 Dx: Access en 300 09-17- t} tablet by M79.671, Hea lth mg-codeine 00:00: 00:00 oral route M14.679, 60 mg 00 :00 every 8 E11.621, tablet hours as E11.40 needed Humalog 2020- No inject Access KwikPen 09-17- 5-10 Units Healt h (U-100) 00:00: 00:00 [...] Q8H take 1 Dx: Access en 300 09-17- t} tablet by [email or web address], Dominique lth mg-codeine 00:00: 00:00 oral route M14.679, 60 mg 00 :00 every 8 E11.621, tablet hours as E11.40 needed Humalog 2020- No inject Access KwikPen 09-17- 5-10 Units Healt h (U-100) 00:00: 00:00 by Insulin 100 00 :00 Subcutaneo unit/mL us route 3 subcutaneou times per s day on a medium sliding scale three times a day before meals lisinopril 2020- No 1{table Q1D take 1 A ccess 20 mg -17 10-25 t} tablet by Health tablet 00:00: 00:00 oral route 00 :00 every day lisinopril 2020- No 1{table Q1D take 1 A ccess 20 mg -17 10-25 t} tablet by Health tablet 00:00: 00:00 [...] mg tablet 5-24 06-22 t} tablet by [facility] 00:00: 00:00 oral route 00 :00 every day Januvia 100 2020-0 2021- No 1{table Q1D take 1 Access mg tablet 5-24 06-22 t} tablet by [facility] 00:00: 00:00 oral route 00 :00 every day Orionuvia 100 2020-0 2021- No 1{table Q1D take 1 Access mg tablet 5-24 06-22 t} tablet by [facility] 00:00: 00:00 oral route 00 :00 every day Orionuvia 100 2020-0 2021- No 1{table Q1D take 1 Access mg tablet 5-24 06-22 t} tablet by [facility] 00:00: 00:00 oral route 00 :00 every day Orionuvia 100 2020-0 2021- No 1{table Q1D take 1 Access mg tablet 5-24 06-22 t} tablet by [facility] 00:00: 00:00 oral route 00 :00 every day Januvia 100 2020-0 2021- No 1{table Q1D take 1 Access mg tablet 5-24 06-22 t} tablet by [facility] 00:00: 00:00 oral route 00 :00 every day Orionuvia 100 2020-0 2021- No 1{table Q1D take 1 Access mg tablet 5-24 06-22 t} tablet by [facility] 00:00: 00:00 oral route 00 :00 every day Orionuvia 100 2020-0 2021- No 1{table Q1D take 1 Access mg tablet 5-24 06-22 t} tablet by [facility] 00:00: 00:00 oral route 00 :00 every day Orionuvia 100 2020-0 2021- No 1{table Q1D take 1 Access mg tablet 5-24 06-22 t} tablet by [facility] 00:00: 00:00 oral route 00 :00 every day Orionuvia 100 2020-0 2021- No 1{table Q1D take 1 Access mg tablet 5-24 06-22 t} tablet by [facility] 00:00: 00:00 oral route 00 :00 every day Januvia 100 2020-0 2021- No 1{table Q1D take 1 Access mg tablet 5-24 06-22 t} tablet by [facility] 00:00: 00:00 oral route 00 :00 every day Alia 100 2020-0 2020- No 1{table Q1D take 1 Access mg tablet 08-19 t} tablet by [facility] 00:00: 00:00 oral route 00 :00 [...] day to cleansed affected area Santyl 250 No Q1D apply by Acc ess unit/gram [...] take 1 Acce ss 25 mg 5-20 08-03 tablet (25 Health tablet 00:00: 00:00 [...] 00 :00 oral route once daily Levemir 2020-2020- No 100U Q1D inject 100 Acc ess FlexTouch 5-20 -22 unit by [facility] 00:00: 00:00 subcutaneo Insulin 100 00 :00 us route unit/mL (3 every day mL) subcutaneou s pen metolazone 2020- No 1{table Q2D take 1 A ccess 5 mg tablet 5-15 09- t} tablet by He alth 00:00: 00:00 oral route 00 :00 every 2 days lisinopril 2020- No 1{table Q1D take 1 A ccess 20 mg 5-20 -22 t} tablet by Health tablet 00:00: 00:00 oral route 00 :00 every day Levemir 2020-2020- No 100U Q1D inject 100 Acc ess FlexTouch 5-20 -22 unit by [facility] 00:00: 00:00 subcutaneo Insulin 100 00 :00 [...] Acc ess FlexTouch 5-20 06-22 unit by [facility] 00:00: 00:00 subcutaneo Insulin 100 00 :00 [...] Acc ess FlexTouch 5-20 06-22 unit by [facility] 00:00: 00:00 subcutaneo Insulin 100 00 :00 [...] Acc ess FlexTouch 5-20 06-22 unit by [facility] 00:00: 00:00 subcutaneo Insulin 100 00 :00 [...] Acc ess FlexTouch 5-20 06-22 unit by [facility] 00:00: 00:00 subcutaneo Insulin 100 00 :00 [...] Acc ess FlexTouch 5-20 06-22 unit by [facility] 00:00: 00:00 subcutaneo Insulin 100 00 :00 [...] Acc ess FlexTouch 5-20 06-22 unit by [facility] U[facility] 00:00: 00:00 subcutaneo Insulin 100 00 :00 [...] Acc ess FlexTouch 5-20 06-22 unit by [facility] U-Icera 00:00: 00:00 subcutaneo Insulin 100 00 :00 us route unit/mL (3 every day mL) [facility] s pen metolazone 2020-2020- No 1{table [...] Acc ess FlexTouch 5-20 06-22 unit by [facility]a 00:00: 00:00 subcutaneo Insulin 100 00 :00 us route unit/mL (3 every day mL) [facility] s pen metolazone 2020-2020- No 1{table [...] Acc ess FlexTouch 5-20 06-22 unit by [facility] 00:00: 00:00 subcutaneo Insulin 100 00 :00 us route unit/mL (3 every day mL[facility]- No 1{table Q2D [...] No take 1 Acc ess 75 mg 07-04-20 tablet (75 Health tablet 00:00: 00:00 mg) by 00 :00 oral route once daily atorvastati 2020- No take 1 Acc ess n 80 mg 07-04-20 tablet by Health tablet 00:00: 00:00 Oral route 00 :00 1 time per day amlodipine 2020- No take 1 Acce ss 5 mg tablet 07-04-20 tablet (5 He alth 00:00: 00:00 mg) by 00 :00 oral route once daily isosorbide 2020- No take 1 [facility]ce ss mononitrate 07-04-20 tablet (60 H ealth ER 60 mg [...] No take 1 Acce ss 25 mg 07-04 05-20 tablet (25 Health tablet 00:00: 00:00 mg) by 00 :00 oral route 2 times per day with food clopidogrel 2020- No take 1 Acc ess 75 mg - 05-20 tablet (75 Health tablet 00:00: 00:00 mg) by 00 :00 oral route once daily atorvastati 2020- No take 1 Acc ess n 80 mg 07-04-20 tablet by Health tablet 00:00: 00:00 Oral route 00 :00 1 time per day amlodipine 2020- No take 1 Acce ss 5 mg tablet 07-04-20 tablet (5 He alth 00:00: 00:00 mg) by 00 :00 oral route once daily isosorbide 2020- No take 1 [facility]ce ss mononitrate 07-04-20 tablet (60 H ealth ER 60 mg [...] No take 1 Acce ss 25 mg 07-04 05-20 tablet (25 Health tablet 00:00: 00:00 mg) by 00 :00 oral route 2 times per day with food clopidogrel 2020- No take 1 Acc ess 75 mg - 05-20 tablet (75 Health tablet 00:00: 00:00 mg) by 00 :00 oral route once daily atorvastati 2020- No take 1 Acc ess n 80 mg 07-04-20 tablet by Health tablet 00:00: 00:00 Oral route 00 :00 1 time per day amlodipine 2020- No take 1 Acce ss 5 mg tablet 07-04-20 tablet (5 He alth 00:00: 00:00 mg) by 00 :00 oral route once daily isosorbide 2020- No take 1 Acce ss mononitrate 07-04-20 tablet (60 H ealth ER 60 mg [...] No take 1 Acce ss 25 mg 07-04 05-20 tablet (25 Health tablet 00:00: 00:00 mg) by 00 :00 oral route 2 times per day with food clopidogrel 2020- No take 1 Acc ess 75 mg - 05-20 tablet (75 Health tablet 00:00: 00:00 mg) by 00 :00 oral route once daily atorvastati 2020- No take 1 Acc ess n 80 mg 07-04-20 tablet by Health tablet 00:00: 00:00 Oral route 00 :00 1 time per day amlodipine 2020- No take 1 Acce ss 5 mg tablet 07-04-20 tablet (5 He alth 00:00: 00:00 mg) by 00 :00 oral route once daily isosorbide 2020- No take 1 Acce ss mononitrate 07-04-20 tablet (60 H ealth ER 60 mg [...] No take 1 Acce ss 25 mg 07-04 05-20 tablet (25 Health tablet 00:00: 00:00 mg) by 00 :00 oral route 2 times per day with food clopidogrel 2020- No take 1 Acc ess 75 mg - 05-20 tablet (75 Health tablet 00:00: 00:00 mg) by 00 :00 oral route once daily atorvastati 2020- No take 1 Acc ess n 80 mg 07-04-20 tablet by Health tablet 00:00: 00:00 Oral route 00 :00 1 time per day amlodipine 2020- No take 1 Acce ss 5 mg tablet 07-04-20 tablet (5 He alth 00:00: 00:00 mg) by 00 :00 oral route once daily isosorbide 2020- No take 1 Acce ss mononitrate 07-04-20 tablet (60 H ealth ER 60 mg [...] No take 1 Acce ss 25 mg 07-04 05-20 tablet (25 Health tablet 00:00: 00:00 mg) by 00 :00 oral route 2 times per day with food clopidogrel 2020- No take 1 Acc ess 75 mg - 05-20 tablet (75 Health tablet 00:00: 00:00 mg) by 00 :00 oral route once daily atorvastati 2020- No take 1 Acc ess n 80 mg 07-04-20 tablet by Health tablet 00:00: 00:00 Oral route 00 :00 1 time per day amlodipine 2020- No take 1 Acce ss 5 mg tablet 07-04-20 tablet (5 He alth 00:00: 00:00 mg) by 00 :00 oral route once daily isosorbide 2020- No take 1 Acce ss mononitrate 07-04-20 tablet (60 [facility] ealth ER 60 mg [...] No take 1 Acce ss 25 mg 07-04 05-20 tablet (25 Health tablet 00:00: 00:00 mg) by 00 :00 oral route 2 times per day with food clopidogrel 2020- No take 1 Acc ess 75 mg - 05-20 tablet (75 Health tablet 00:00: 00:00 mg) by 00 :00 oral route once daily atorvastati 2020- No take 1 Acc ess n 80 mg 07-04-20 tablet by Health tablet 00:00: 00:00 Oral route 00 :00 1 time per day amlodipine 2020- No take 1 Acce ss 5 mg tablet 07-04-20 tablet (5 He alth 00:00: 00:00 mg) by 00 :00 oral route once daily isosorbide 2020- No take 1 Acce ss mononitrate 07-04-20 tablet (60 H ealth ER 60 mg [...] No take 1 Acce ss 25 mg 07-04 05-20 tablet (25 Health tablet 00:00: 00:00 mg) by 00 :00 oral route 2 times per day with food clopidogrel 2020- No take 1 Acc ess 75 mg - 05-20 tablet (75 Health tablet 00:00: 00:00 mg) by 00 :00 oral route once daily atorvastati 2020- No take 1 Acc ess n 80 mg 07-04-20 tablet by Health tablet 00:00: 00:00 Oral route 00 :00 1 time per day amlodipine 2020- No take 1 Acce ss 5 mg tablet 07-04-20 tablet (5 He alth 00:00: 00:00 mg) by 00 :00 oral route once daily isosorbide 2020- No take 1 Acce ss mononitrate 07-04-20 tablet (60 H ealth ER 60 mg [...] No take 1 Acce ss 25 mg 07-04 05-20 tablet (25 Health tablet 00:00: 00:00 mg) by 00 :00 oral route 2 times per day with food clopidogrel 2020- No take 1 Acc ess 75 mg - 05-20 tablet (75 Health tablet 00:00: 00:00 mg) by 00 :00 oral route once daily atorvastati 2020- No take 1 Acc ess n 80 mg 07-04-20 tablet by Health tablet 00:00: 00:00 Oral route 00 :00 1 time per day amlodipine 2020- No take 1 Acce ss 5 mg tablet 07-04-20 tablet (5 He alth 00:00: 00:00 mg) by 00 :00 oral route once daily isosorbide 2020- No take 1 Acce ss mononitrate 07-04-20 tablet (60 H ealth ER 60 mg [...] No take 1 Acce ss 25 mg 07-04 05-20 tablet (25 Health tablet 00:00: 00:00 mg) by 00 :00 oral route 2 times per day with food clopidogrel 2020- No take 1 Acc ess 75 mg - 05-20 tablet (75 Health tablet 00:00: 00:00 mg) by 00 :00 oral route once daily atorvastati 2020- No take 1 Acc ess n 80 mg 07-04-20 tablet by Health tablet 00:00: 00:00 Oral route 00 :00 1 time per day amlodipine 2020- No take 1 Acce ss 5 mg tablet 07-04-20 tablet (5 He alth 00:00: 00:00 mg) by 00 :00 oral route once daily isosorbide 2020- No take 1 Acce ss mononitrate 07-04-20 tablet (60 [facility] ealth ER 60 mg [...] No take 1 Acce ss 25 mg 07-04 05-20 tablet (25 Health tablet 00:00: 00:00 mg) by 00 :00 oral route 2 times per day with food clopidogrel 2020- No take 1 Acc ess 75 mg - 05-20 tablet (75 Health tablet 00:00: 00:00 mg) by 00 :00 oral route once daily atorvastati 2020- No take 1 Acc ess n 80 mg 07-04-20 tablet by Health tablet 00:00: 00:00 Oral route 00 :00 1 time per day amlodipine 2020- No take 1 Acce ss 5 mg tablet 07-04-20 tablet (5 He alth 00:00: 00:00 mg) by 00 :00 oral route once daily isosorbide 2020- No take 1 Acce ss mononitrate 07-04-20 tablet (60 [facility] ealth ER 60 mg [...] No take 1 Acce ss 25 mg 07-04 05-20 tablet (25 Health tablet 00:00: 00:00 mg) by 00 :00 oral route 2 times per day with food clopidogrel 2020- No take 1 Acc ess 75 mg - 05-20 tablet (75 Health tablet 00:00: 00:00 mg) by 00 :00 oral route once daily atorvastati 2020- No take 1 Acc ess n 80 mg 07-04-20 tablet by Health tablet 00:00: 00:00 Oral route 00 :00 1 time per day amlodipine 2020- No take 1 Acce ss 5 mg tablet 07-04-20 tablet (5 He alth 00:00: 00:00 mg) by 00 :00 oral route once daily isosorbide 2020- No take 1 Acce ss mononitrate 07-04-20 tablet (60 H ealth ER 60 mg [...] Q2D take 1 A ccess 2.5 mg 4-08 05-20 t} tablet by Health [...] oral route 2 times per day bumetanide 0 2020- No take 1 Acce ss 1 mg tablet 3-24 05-20 tablet (1 He alth 00:00: 00:00 mg) by 00 :00 oral route 2 times per day bumetanide 0 2020- No take 1 Acce ss 1 [...] day to cleansed affected area Santyl 250 2020- No Q1D apply by Ac cess unit/gram 1-29 05-20 topical Health topical 00:00: 00:00 route ointment 00 :00 every day to cleansed affected area Santyl 250 2020- No Q1D apply by Ac cess unit/gram 1-29 05-20 topical Health topical 00:00: 00:00 route ointment 00 :00 every day to cleansed affected area Santyl 250 2020- No Q1D apply by Ac cess unit/gram 1-29 05-20 topical Health topical 00:00: 00:00 route ointment 00 :00 every day to cleansed affected area Santyl 250 2020- No Q1D apply by Ac cess unit/gram 1-29 05-20 topical Health topical 00:00: 00:00 route ointment 00 :00 every day to cleansed affected area Santyl 250 2020- No Q1D apply by Ac cess unit/gram 1-29 05-20 topical Health topical 00:00: 00:00 route ointment 00 :00 every day to cleansed affected area Santyl 250 2020- No Q1D apply by Ac cess unit/gram 1-29 05-20 topical Health topical 00:00: 00:00 route ointment 00 :00 every day to cleansed affected area Santyl 250 2020- No Q1D apply by Ac cess unit/gram 1-29 05-20 topical Health topical 00:00: 00:00 route ointment 00 :00 every day to cleansed affected area Santyl 250 2020- No Q1D apply by Ac cess [...] QD Take 2.[address] (ZAROXOLYN) 1-09 01-09 mg [facility].5 MG 08:46: 00:00 mouth Medical tablet 05 :00 daily. Center amLODIPine 2020- No 5mg QD Take [address] [facility] (NORVASC) 04-06 by [facility] - 10 MG 08:46: 00:00 daily. Medical tablet 05 :00 [facility] [place] lisinopriL 2020- No 40mg Q.5D Take 40 [...] mouth Medical tablet 05 :00 daily. [facility] [place] amLODIPine 2020- No 5mg QD Take [address] [facility] (NORVASC) 04-06 by [facility] - 10 MG 08:46: 00:00 daily. Medical tablet 05 :00 [facility] [place] lisinopriL 2020- No 40mg Q.5D Take 40 [...] QD Take 2.[address] (ZAROXOLYN) 1-09 01-09 mg by [facility] - 2.5 MG 08:46: 00:00 mouth Medical tablet 05 :00 daily. Center amLODIPine 2020- No 5mg QD Take [address] [facility] (NORVASC) 04-06 by [facility] - 10 MG 08:46: 00:00 daily. Medical tablet 05 :00 [facility] [place] lisinopriL 2020- No 40mg Q.5D Take 40 [...] mouth Medical tablet 05 :00 daily. [facility] [place] amLODIPine 2020- No 5mg QD Take [address] [facility] (NORVASC) 04-06 by [facility] - 10 MG 08:46: 00:00 daily. Medical tablet 05 :00 [facility] [place] lisinopriL 2020- No 40mg Q.5D Take 40 [...] Center injection (two) times daily . metOLazone 2020-1- No 2.5mg QD Take 2.[address] (ZAROXOLYN) 04-06 mg by [facility] - 2.5 MG 08:46: 00:00 mouth Medical tablet 05 :00 daily. Center amLODIPine 2020-0 1- No 5mg QD Take [address] [facility] (NORVASC) 04-06 by mouth [facility] - 10 MG 08:46: 00:00 daily. Medical tablet 05 :00 Center lisinopriL 2020-0 2021- No 40mg Q.5D Take [address] [facility] (PRINIVIL,Z 04-06 by mouth 2 L [facility] - ESTRIL) 40 08:46: 00:00 (two) Medic al MG tablet 05 :00 times Center daily. insulin 2020-0 2021- No 50U Q.5D Inject [address] [facility] detemir 04-06 Units [facility] - (LEVEMIR) 08:46: 00:00 subcutaneo M edical 100 unit/mL 05 :00 usly 2 Center injection (two) times daily . metOLazone 2020-1- No 2.5mg QD Take 2.[address] (ZAROXOLYN) 04-06 mg by [facility] - 2.5 MG 08:46: 00:00 mouth Medical tablet 05 :00 daily. Center amLODIPine 2020- No 5mg QD Take [address] [facility] (NORVASC) 04-06 by mouth [facility] - 10 MG 08:46: 00:00 daily. Medical tablet 05 :00 [facility] [place] lisinopriL 0 2021- No 40mg Q.5D Take [address] [facility] (PRINIVIL,Z 04-06 by mouth 2 L [facility] - ESTRIL) 40 08:46: 00:00 (two) Medic al MG tablet 05 :00 times Center daily. insulin 2020-0 1- No 50U Q.5D Inject [address] [facility] detemir 04-06- Units [facility] - (LEVEMIR) 08:46: 00:00 subcutaneo M edical 100 unit/mL 05 :00 usly 2 Center injection (two) times daily . metOLazone 2020-0 2021- No 2.5mg QD Take 2.5 [facility] [...] changes of Cente r foot wound.. sevelamer 2020-0 Yes 800mg Take 1 [facility] (RENVELA[facility] 1-09 [facility] - 800 mg 00:00: (800 mg Medical tablet 00 total) by Center mouth 3 (three) times daily with meals. calcitrioL 2020-0 Yes .25ug QD Take [address] [facility] (ROCALTROL) 1-09 capsule [facility] - 0.25 MCG 00:00: (0.25 mcg Medi renuka capsule 00 total) by Center mouth daily. metOLazone 0 Yes 2.5mg Take [address] [facility] (ZAROXOLYN) 1-09 tablet [facility] - 2.5 MG 00:00: (2.5 mg Medical tablet 00 total) by Center mouth every other day. insulin 2020-0 Yes 25U Q.5D Inject 25 [facility] [...] 800mg Take 1 [facility] ([facility]ENVELA) -09 tablet [facility] - 800 mg 00:00: (800 [...] St -acetaminop 04-06 tablet by Siddhartha robertson ([place] 00:00: 00:00 mouth Medic al 5-325) 00 :00 every 6 Center 5-325 mg (six) per tablet hours as needed for Pain. Max Daily Amount: 4 tablets HYDROcodone 2020- No 1{tbl} Take [address] -acetaminop 04-06 tablet by Siddhartha robertson (NORMI 00:00: 00:00 mouth Medic al 5-325) 00 :00 every 6 Center 5-325 mg (six) per tablet hours as needed for Pain. Max Daily Amount: 4 tablets HYDROcodone 2020- No 1{tbl} Take [address] -acetaminop 04-06 tablet by Siddhartha robertson ([place] 00:00: 00:00 mouth Medic al 5-325) 00 :00 every 6 Center 5-325 mg (six) per tablet hours as needed for Pain. Max Daily Amount: 4 tablets HYDROcodone 2020- No 1{tbl} Take [address] -acetaminop 04-06 tablet by Siddhartha robertson ([place] 00:00: 00:00 mouth Medic al 5-325) 00 :00 every 6 Center 5-325 mg (six) per tablet hours as needed for Pain. Max Daily Amount: 4 tablets HYDROcodone 2020- No 1{tbl} Take [address] -acetaminop 04-06 tablet by Siddhartha robertson ([place] 00:00: 00:00 mouth Medic al 5-325) 00 :00 every 6 Center 5-325 mg (six) per tablet hours as needed for Pain. Max Daily Amount: 4 tablets cefePIME 2020- No 2g Q24H Inject [address] [facility] (MAXIPIME) 04-06 intravenou Siddhartha SIM 2g in 00:00: 23:59 [...] Amount: 200 mg clindamycin 2019-03- No 300mg Q.[id number] Take [address] [facility] (CLEOCIN) 05-21 [id number] capsule [facility] - 300 MG 00:00: 23:59 3D (300 mg Medical capsule 00 :00 total) by Center mouth 3 (three) times daily for 7 days. clindamycin 2019-03- No 300mg Q.[id number] Take [address] [facility] (CLEOCIN) 05-21- [id number] capsule [facility] - 300 MG 00:00: 23:59 3D (300 mg Medical capsule 00 :00 total) by Center mouth 3 (three) times daily for 7 days. clindamycin 2019-03- No 300mg Q.[id number] Take [address] [facility] (CLEOCIN) 05-21- [id number] capsule [facility] - 300 MG 00:00: 23:59 3D (300 mg Medical capsule 00 :00 total) by Center mouth 3 (three) times daily for 7 days. clindamycin 2019-03- No 300mg Q.[id number] Take [address] [facility] (CLEOCIN) 05-21 [id number] capsule [facility] - 300 MG 00:00: 23:59 3D (300 mg Medical capsule 00 :00 total) by Center mouth 3 (three) times daily for 7 days. clindamycin 2019-03- No 300mg Q.[id number] Take [address] [facility] (CLEOCIN) 05-21 [id number] capsule [facility] - 300 MG 00:00: 23:59 3D (300 mg Medical capsule 00 :00 total) by Center mouth 3 (three) times daily for 7 days. clindamycin 2019-03- No 300mg Q.[id number] Take [address] [facility] (CLEOCIN) 05-21 [id number] [facility] - 300 MG 00:00: 23:59 3D (300 mg Medical capsule 00 :00 total) by Center mouth 3 (three) times daily for 7 days. clindamycin 2019-03- No 300mg Q.[id number] Take [address] [facility] (CLEOCIN) 05-21 [id number] [facility] - 300 MG 00:00: 23:59 3D (300 mg Medical capsule 00 :00 total) by Center mouth 3 (three) times daily for 7 days. gabapentin 2019-03 Yes Take by [facility] (NEURONTIN) 2- mouth. [facility] - 800 MG 00:00: Medical tablet 00 [facility] [place] lisinopriL 2019-03 Yes take 1 [facility] (PRINIVIL,Z 2-09 tablet (40 Siddhartha kes - ESTRIL) 40 00:00: mg) by Medic al MG tablet 00 oral route Cent er once daily gabapentin 2019-03 Yes Take by [facility] (NEURONTIN) 2-09 mouth. [facility] - 800 MG 00:00: Medical tablet 00 [facility] [place] lisinopriL 2019-03 Yes take 1 [facility] (PRINIVIL,Z 2-09 tablet (40 Siddhartha kes - ESTRIL) 40 00:00: mg) by Medic al MG tablet 00 oral route Cent er once daily gabapentin 2019-03 Yes Take by [facility] (NEURONTIN) 2-09 mouth. [facility] - 800 MG 00:00: Medical tablet 00 [facility] [place] lisinopriL 2019-03 Yes take 1 [facility] (PRINIVIL,Z 2-09 tablet (40 Siddhartha kes - ESTRIL) 40 00:00: mg) by Medic al MG tablet 00 oral route Cent er once daily gabapentin 2019-03 Yes Take by [facility] (NEURONTIN) 2-09 mouth. [facility] - 800 MG 00:00: Medical tablet 00 [facility] [place] lisinopriL 2019-03 Yes take 1 [facility] (PRINIVIL,Z 2-09 tablet (40 Siddhartha kes - ESTRIL) 40 00:00: mg) by Medic al MG tablet 00 oral route Cent er once daily gabapentin 2019-03 Yes Take by [facility] (NEURONTIN) 2-09 mouth. [facility] - 800 MG 00:00: Medical tablet 00 [facility] [place] lisinopriL 2019-03 Yes take 1 [facility] (PRINIVIL,Z 2-09 tablet (40 Siddhartha kes - ESTRIL) 40 00:00: mg) by Medic al MG tablet 00 oral route Cent er once daily gabapentin 2019-03 Yes Take by [facility] (NEURONTIN) 2-09 mouth. [facility] - 800 MG 00:00: Medical tablet 00 [facility] [place] lisinopriL 2019-03 Yes take 1 [facility] (PRINIVIL,Z 2-09 tablet (40 Siddhartha kes - ESTRIL) 40 00:00: mg) by Medic al MG tablet 00 oral route Cent er once daily gabapentin 2019-03 Yes Take by [facility] (NEURONTIN) 2-09 mouth. [facility] - 800 MG 00:00: Medical tablet 00 [facility] [place] lisinopriL 2019-03 Yes take 1 [facility] [...] take 1 [facility] 5 mg tablet 2-09 04-08 tablet (5 He alth 00:00: 00:00 mg) [...] 00 :00 oral route once daily atorvastati 2019-03 No take 1 Acc ess n 80 [...] 00 :00 oral route once daily atorvastati 2019-03 No take 1 Acc ess n 80 [...] [facility] azole-trime 12-01 rimetho tablet Siddhartha s - thoprim 00:00: 23:59 prim} (160 mg of Me dical (BACT[place]IM 00 :00 trimethopr Cente r DS) 800-160 im total) mg per by mouth 2 tablet (two) times daily for 10 days smx-tmp DS (BACTRIM) 800-160 mg tabs (1tab q12 D10). sulfamethox 2020-0 2020- No 160mg{t Q.5D Take [address] [facility] azole-trime 12-01 rimetho tablet [facility] - oprim 00:00: 23:59 prim} (160 mg of Me dical (BACTRIM 00 :00 trimethopr Cente r DS) 800-160 im total) mg per by mouth 2 tablet (two) times daily for 10 days smx-tmp DS (BACTRIM) 800-160 mg tabs (1tab q12 D10). sulfamethox 2020-0 2020- No 160mg{t Q.5D Take [address] [facility] azole-trime 12-01 rimetho tablet [facility] - oprim 00:00: 23:59 prim} (160 mg of Me [...] 1{tbl} Take [address] -acetaminop -12-08 tablet by Siddhartha robertson ([place] 00:00: 23:59 [...] 50 Acces s FlexTouch 8-13 Units by [facility] U-100 00:00: Subcutaneo Insulin 100 00 us [...] 1 Acce ss 5 mg tablet 8-13 - tablet (5 He alth 00:00: 00:00 mg) by 00 :00 oral route once daily atorvastati 2019- No take 1 Acc ess n 80 mg 8- 12 tablet by Health tablet 00:00: 00:00 Oral [...] 2019- No inject 50 [facility] FlexTouch 11-08- Units by Healt [facility] U-100 00:00: 00:00 [...] :00 oral route once daily gabapentin 2019- 2020- No 1{table Q8H take 1 A [...] take 1 Acce ss 1 mg tablet 7-05 06- tablet (1 He alth 00:00: 00:00 [...] route 2 times per day Levemir 2019-0 2019- No inject 50 Acce ss FlexTouch 07-03-13 Units by Healt h U-100 00:00: 00:00 Subcutaneo Insulin 100 00 :00 us route 2 unit/mL (3 times per mL) day in the subcutaneou morning s pen and evening Levemir 2019-0 2019- No inject 50 [facility] FlexTouch 07-03-13 [...] and evening Levemir 2019- 2020- No inject 50 [facility] ss FlexTouch 07-03 Units by Healt h U-100 00:00: 00:00 Subcutaneo Insulin 100 00 :00 us route 2 unit/mL (3 times per mL) day in the subcutaneou morning s pen and evening Levemir 2019-2019- No inject 50 Acce ss FlexTouch 07-03 Units by Healt h U-100 00:00: 00:00 [...] :00 oral route once daily metolazone 2019- take 1 [facility] 5 mg tablet [...] :00 1 time per day carvedilol 2019- take 1 [facility] 25 mg 07-02 [...] :00 1 time per day carvedilol 2019- take 1 [facility] 25 mg 07-02 [...] per day Levemir 2020-0 2020- No inject 34 Acce [...] subcutaneou morning s pen and evening bumetanide 2020-0 2020- No take 1 d/c lasix Access 1 mg tablet 05-09- tablet (1 He alth 00:00: 00:00 mg) by 00 :00 oral route 2 times per day bumetanide 2020-0 2020- No take 1 d/c lasix Access 1 mg tablet 05-09- tablet (1 He alth 00:00: 00:00 mg) by 00 :00 oral route 2 times per day bumetanide 2020-0 2020- No take 1 d/c lasix Access 1 mg tablet 05-09- tablet (1 He alth 00:00: 00:00 mg) by 00 :00 oral route 2 times per day bumetanide 2020-0 2020- No take 1 d/c lasix Access 1 mg tablet 05-09- tablet (1 He alth 00:00: 00:00 mg) by 00 :00 oral route 2 times per day bumetanide 2020-0 2020- No take 1 d/c lasix Access 1 mg tablet 05-09- tablet (1 He alth 00:00: 00:00 mg) by 00 :00 oral route 2 times per day bumetanide 2020-0 2020- No take 1 d/c lasix Access 1 mg tablet 05-09-06 tablet (1 He alth 00:00: 00:00 mg) by 00 :00 oral route 2 times per day bumetanide 2020-0 2020- No take 1 d/c lasix Access [...] oral route 2 times per day metolazone No take 1 [facility] 5 [...] daily isosorbide take 1 [facility] mononitrate 1-07 04-06 tablet (60 H ealth ER 60 mg [...] and evening Humalog No inject Access KwikPen 04-04 5-10 Units [...] :00 oral route once daily metolazone 2019- take 1 [facility] 5 mg tablet [...] 00 :00 oral route once daily Levemir 2020-0 2020- No inject 34 Acce ss FlexTouch 04-04 Units by Healt h U-100 00:00: 00:00 Subcutaneo Insulin 100 00 :00 us route 2 unit/mL (3 times per mL) day in the subcutaneou morning s pen and evening Humalog 2019- No inject Access KwikPen 04-04- 5-10 Units Healt h (U-100) 00:00: 00:00 [...] :00 oral route once daily metolazone 2019- take 1 [facility] 5 mg tablet [...] :00 oral route once daily Levemir 2019- inject 34 Acce ss FlexTouch 04-04 Units by Healt h U-100 00:00: 00:00 Subcutaneo Insulin 100 00 :00 us route 2 unit/mL (3 times per mL) day in the subcutaneou morning s pen and evening Humalog 2019- No inject Access KwikPen 1-07 04-06 5-10 Units Healt h (U-100) 00:00: [...] Levemir No inject 34 Acce ss FlexTouch 04-04 Units by Healt h U-100 00:00: 00:00 Subcutaneo Insulin 100 00 :00 us route 2 unit/mL (3 times per mL) day in the subcutaneou morning s pen and evening Humalog inject Access KwikPen 04-04-06 5-10 Units Healt [...] :00 oral route once daily atorvastati 2019- take 1 Acc ess n 80 mg [...] morning s pen and evening Humalog 2019- inject [facility] KwikPen 04-04 5-10 Units Healt [...] and evening Humalog No inject [facility] KwikPen 04-04 5-10 Units [...] :00 oral route once daily isosorbide 2019- 2020- No take 1 [facility] mononitrate 04-04 tablet (60 H ealth ER 60 mg 00:00: 00:00 mg) by tablet,exte 00 :00 oral route nded once daily release 24 in the hr morning lisinopril 2019- No take 1 [facility] ss 40 mg 04-04 tablet (40 Health tablet 00:00: 00:00 mg) by 00 :00 oral route once daily furosemide 2019- 2020- No 1{table Q12H take 1 A [...] take 1 A ccess 40 mg 1-09 27- t} tablet by Health tablet 00:00: [...] 2019-2019- No inhale 3 A ccess -albuterol 04-04- [...] up to 6 doses per day ipratropium inhale 3 A ccess -albuterol 04-04 milliliter [...] oral route once daily ProAir HFA 2019- inhale 2 Ac cess 90 07-26 puffs [...] 34 Acce ss FlexTouch 07-26 Units by [facility] U-100 00:00: 00:00 Subcutaneo Insulin 100 [...] No inject Access KwikPen 07-26 5-10 Units [facility] (U-100) 00:00: 00:00 by Insulin 100 [...] (3 times per mL) day in the subcutane morning s pen and evening lisinopril 2019- [...] Source Immunization Name Immunization Name Flu (split) (3 yrs 2020-03-06 Completed Note: Access or older) 00:00:00 Administered Flu Health vaccine without any complications. [facility] 03/06/2020 ; Source: New Immunization [...] Administered Flu Health vaccine without any complications. [facility] 03/06/2020 ; Source: New Immunization Record Flu (split) (2020-03-06 Completed Note: Access or older) 00:00:00 Administered Flu Health vaccine without any complications. [facility] 03/06/2020 ; Source: New Immunization Record Flu (split) (2020-03-06 Completed Note: Access or older) 00:00:00 Administered Flu Health vaccine without any complications. [facility] 03/06/2020 ; Source: New Immunization Record Flu (split) (2020-03-06 Completed Note: Access or older) 00:00:00 Administered Flu Health vaccine without any complications. [facility] 03/06/2020 ; Source: New Immunization Record Flu (split) (2020-03-06 Completed Note: Access or older) 00:00:00 Administered Flu Health vaccine without any complications. [facility] 03/06/2020 ; Source: New Immunization Record Flu (split) (2020-03-06 Completed Note: Access or older) 00:00:00 Administered Flu Health vaccine without any complications. [facility] 03/06/2020 ; Source: New Immunization Record Flu (split) (2020-03-06 Completed Note: Access or older) 00:00:00 Administered Flu Health vaccine without any complications. [facility] 03/06/2020 ; Source: New Immunization Record Flu (split) (2020-03-06 Completed Note: Access or older) 00:00:00 Administered Flu Health vaccine without any complications. [facility] 03/06/2020 ; Source: New Immunization Record Flu (split) (2020-03-06 Completed Note: Access or older) 00:00:00 Administered Flu Health vaccine without any complications. [facility] 03/06/2020 ; Source: New Immunization Record Flu (split) (2020-03-06 Completed Note: Access or older) 00:00:00 Administered Flu Health vaccine without any complications. [facility] 03/06/2020 ; Source: New Immunization Record Flu (split) (2020-03-06 Completed Note: Access or older) 00:00:00 Administered [facility] vaccine without any complications. [facility] 03/06/2020 ; Source: New Immunization Record Flu (split) (2020-03-06 Completed Note: Access or older) 00:00:00 Administered Flu Health vaccine without any complications. [facility] 03/06/2020 ; Source: New Immunization Record Flu (split) (2020-03-06 Completed Note: Access or older) 00:00:00 Administered Flu Health vaccine without any complications. [facility] 03/06/2020 ; Source: New Immunization Record Flu (split) (2020-03-06 Completed Note: Access or older) 00:00:00 Administered Flu Health vaccine without any complications. [facility] 03/06/2020 ; Source: New Immunization [...] Immunization Record Influenza 2017-03-[address] [facility] Three-TIV PF 5+ YR 00:00:00 - [facility] Influenza 2017-03-[address] [facility] Three-TIV PF 5+ YR 00:00:00 - [facility] Influenza 2017-03-[address] [facility] Three-TIV PF 5+ YR 00:00:00 - [facility] Influenza 2017-03-[address] [facility] Three-TIV PF 5+ YR 00:00:00 - [facility] Influenza 2017-03-[address] [facility] Three-TIV PF 5+ YR 00:00:00 - [facility] Influenza 2017-03-[address] [facility] Three-TIV PF 5+ YR 00:00:00 - [facility] Influenza 2017-03-[address] [facility] Three-TIV PF 5+ YR 00:00:00 - [facility] Vital Signs Vital Name Observation Time [...] Body Temperature 2020-10-29 08:12:00 36.28 Bernard[facility] Respiratory Rate 2020-10-29 08:12:00 18 /min [facility] Body mass index 2020-10-29 08:12:00 39.38 [facility] 2020-09-29 08:55:00 76 /min [facility] Respiratory rate 2020-09-29 08:55:00 18 /min [facility] Oxygen saturation in 2020-09-29 08:55:00 97 /min [facility] Arterial blood by Medical Ce nter Pulse oximetry Systolic blood 2020-09-29 04:00:00 134 mm[Hg] [facility] Diastolic blood 2020-09-29 04:00:00 76 mm[Hg] [facility] Body temperature 2020-09-29 04:00:00 37 Bernarda [facility] Body weight 2020-09-23 13:36:00 125.646 kg [facility] BMI 2020-09-23 13:36:00 39.75 kg/m2 [facility] Body height 2020-09-22 14:00:00 177.8 cm [facility] Body height 2020-09-17 10:27:00 172.72 [facility] Body Weight 2020-09-17 10:27:00 129.365 kg [facility] Systolic 2020-09-17 10:27:00 122 mm[Hg] [facility] 2020-09-17 10:27:00 71 mm[Hg] [facility] Diastolic Heart Beat 2020-09-17 10:27:00 82 /min [facility] Body Temperature 2020-09-17 10:27:00 36.56 Bernarda [facility] Respiratory Rate 2020-09-17 10:27:00 18 /min [facility] Body mass index 2020-09-17 10:27:00 43.36 kg/m2 [facility] Body height 2020-08-15 15:21:00 172.72 cm [...] Body mass index 2020-08-15 15:21:00 40.90 kg/m2 [facility] Body height 2020-04-26 09:59:00 172.72 [...] Body mass index 2019-04-04 14:21:00 39.99 kg/m2 [facility] Body height 2018-09-06 09:34:00 68.00 [...] Body mass index 2018-09-06 09:34:00 40.70 kg/m2 [facility] Body height 2018-07-26 15:37:00 68.00 [in_us] [facility] Patient Body Weight 2018-07-26 15:37:00 263.00 [lb_av] [facility] Systolic 2018-07-26 15:37:00 150 mm[Hg] [facility] 2018-07-26 15:37:00 96 mm[Hg] [facility] Diastolic Heart Beat 2018-07-26 15:37:00 73 /min [facility] Body Temperature 2018-07-26 15:37:00 98.10 [degF] [facility] Respiratory Rate 2018-07-26 15:37:00 18 /min [facility] Body mass index 2018-07-26 15:37:00 40.00 [...] Health Respiratory Rate 2015-09-26 14:28:00 18 [facility] Body mass index 2015-09-26 14:28:00 38.60 [...] Health Respiratory Rate 2015-05-03 15:36:00 20 [facility] Body mass index 2015-05-03 15:36:00 37.20 kg/m2 [facility] Health Procedures Procedure Date / Time Performing Clinician Source Performed OFFICE/OUTPATIENT VISIT 2021-01-29 00:00:00 [facility] Health EST COMPREHEN METABOLIC PANEL 2021-01-29 00:00:00 [facility] Health URINALYSIS AUTO W/SCOPE 2021-01-29 00:00:00 [facility] Health UR ALBUMIN QUANTITATIVE 2021-01-29 00:00:00 [facility] GLYCOSYLATED HEMOGLOBIN 2021-01-29 00:00:00 [facility] Health TEST VITAMIN D 25 HYDROXY 2021-01-29 00:00:00 [facility] ASSAY OF NATRIURETIC 2021-01-29 00:00:00 [facility] PEPTIDE ASSAY OF BLOOD/URIC ACID 2021-01-29 00:00:00 [facility] [employer] ASSAY OF PHOSPHORUS 2021-01-29 00:00:00 [facility] RBC SED RATE AUTOMATED 2021-01-29 00:00:00 [facility] ASSAY OF MAGNESIUM 2021-01-29 00:00:00 [facility] C-REACTIVE PROTEIN 2021-01-29 00:00:00 [facility] GLUCOSE BLOOD TEST 2020-12-03 00:00:00 [facility] OFFICE/OUTPATIENT VISIT 2020-12-03 [facility] Insulin injection 2020-12-03 00:00:00 [facility] THER/PROPH/DIAG INJ SC/IM 2020-12-03 00:00:00 [employer] COMPREHEN METABOLIC PANEL 2020-12-03 00:00:00 [employer] ASSAY OF NATRIURETIC 2020-12-03 00:00:00 [employer] PEPTIDE ASSAY OF PHOSPHORUS 2020-12-03 00:00:00 [facility] GLUCOSE BLOOD TEST 2020-10-29 00:00:00 [facility] OFFICE/OUTPATIENT VISIT 2020-10-29 00:[facility] EST COMPLETE CBC W/AUTO DIFF 2020-10-29 00:00:00 [facility] [employer] WBC COMPREHEN METABOLIC PANEL 2020-10-29 00:00:00 [employer] URINALYSIS AUTO W/SCOPE 2020-10-29 00:00:00 [employer] LIPID PANEL 2020-10-29 00:00:00 [facility] GLYCOSYLATED HEMOGLOBIN 2020-10-29 00:00[facility] TEST VITAMIN D 25 HYDROXY 2020-10-29 00:00:00 [employer] Health ASSAY OF NATRIURETIC 2020-10-29 00:00:00 [employer] PEPTIDE ASSAY OF MAGNESIUM 2020-10-29 00:00:00 Access [facility] ASSAY OF PARATHORMONE 2020-10-29 00:00:00 [employer] HAND, MINIMUM THREE VIEWS, 2020-10-29 00:00:00 A [facility] RADIOLOGIC EXAM CBC W/PLT COUNT & AUTO 2020-09-29 04:29:00 Gretchen Hensley [facility] BASIC METABOLIC PANEL (7) 2020-09-29 04:29:00 Gretchen Hensley [facility] MAGNESIUM 2020-09-29 04:29:00 [facility] & AUTO 2020-09-29 04:29:00 Ayden [facility] POCT-GLUCOSE METER 2020-09-28 17:27:00 Shieh [facility] POCT-GLUCOSE METER 2020-09-28 12:49:00 Shieh [facility] POCT-GLUCOSE METER 2020-09-28 05:58:00 Shieh, [facility] CBC W/PLT COUNT & AUTO 2020-09-28 04:49:00 Gretchen Hensley [facility] BASIC METABOLIC PANEL (7) 2020-09-28 04:49:00 Gretchen Hensley [facility] MAGNESIUM 2020-09-28 04:49:00 [facility] W/[facility]T COUNT & AUTO 2020-09-28 04:49:00 Ayden [facility] POCT-GLUCOSE METER 2020-09-27 20:57:00 Shieh, [facility] POCT-GLUCOSE METER 2020-09-27 19:07:00 Shieh, [facility] POCT-GLUCOSE METER 2020-09-27 12:26:00 Shieh, [facility] POCT-GLUCOSE METER 2020-09-27 06:36:00 Shieh, [facility] CBC W/PLT COUNT & AUTO 2020-09-27 03:45:00 Gretchen Hensley [facility] BASIC METABOLIC PANEL (7) 2020-09-27 03:45:00 Gretchen Hensley [facility] MAGNESIUM 2020-09-27 03:45:00 Ayden [facility] CBC W/PLT COUNT & AUTO 2020-09-27 03:45:00 Gretchen [address] [facility] POCT-GLUCOSE METER 2020-09-26 23:12:00 Parish [facility] POCT-GLUCOSE METER 2020-09-26 18:20:00 Parish [facility] POCT-GLUCOSE METER 2020-09-26 13:31:00 Parish [facility] XR FOOT 3 VIEWS LEFT 2020-09-26 08:38:00 Laura Nguyen [facility] POCT-GLUCOSE METER 2020-09-26 08:34:00 Parish [facility] ANAEROBIC CULTURE 2020-09-26 08:07:57 Laura Nguyen [facility] SURGICALLY OBTAINED 2020-09-26 08:07:57 Laura Nguyen [facility] - CULTURE + GRAM STAIN Medical [facility] ter ANAEROBIC CULTURE 2020-09-26 08:02:39 Laura Nguyen [facility] SURGICALLY OBTAINED 2020-09-26 08:02:39 Laura Nguyen [facility] - CULTURE + GRAM STAIN Medical [facility] TISSUE EXAM 2020-09-26 07:56:00 Laura Nguyen [facility] AMPUTATION,TOE 2020-09-26 07:12:00 Laura Nguyen [facility] CBC W/PLT COUNT & AUTO 2020-09-26 04:37:00 Gretchen Hensley [facility] BASIC METABOLIC PANEL (7) 2020-09-26 04:37:00 Gretchen Hensley [facility] MAGNESIUM 2020-09-26 04:37:00 Gretchen Hensley [facility] B-TYPE NATRIURETIC FACTOR 2020-09-26 04:37:00 Yoni Lugo [facility] (BNP) [facility] CBC W/PLT COUNT & AUTO 2020-09-26 04:37:00 Gretchen [address]ensley [facility] POCT-GLUCOSE METER 2020-09-25 21:10:00 Yoni Lugo [facility] POCT-GLUCOSE METER 2020-09-25 16:15:00 Parish [facility] POCT-GLUCOSE METER 2020-09-25 11:21:00 Parish [facility] POCT-GLUCOSE METER 2020-09-25 06:02:00 Ayden [facility] CBC W/PLT COUNT & AUTO 2020-09-25 04:44[facility] (7) 2020-09-25 04:44:00 [facility] 2020-09-25 04:44:00 Ayden [facility] CBC W/PLT COUNT & AUTO 2020-09-25 04:44:00 Ayden [facility] POCT-GLUCOSE METER 2020-09-24 20:36:00 Ayden [facility] POCT-GLUCOSE METER 2020-09-24 17:37:00 [facility] HC ARTERIAL DOPPLER LEGS 2020-09-24 13:22:00 Laura Nguyen [facility] POCT-GLUCOSE METER 2020-09-24 06:34:00 Ayden [facility] CBC W/PLT COUNT & AUTO 2020-09-24 05:11:00 [facility] BASIC METABOLIC PANEL (7) 2020-09-24 05:11:00 [facility] 2020-09-24 05:11:00 [facility] PTH, INTACT 2020-09-24 05:11:00 Nneka [facility] VITAMIN D, 25-HYDROXY 2020-09-24 05:11:00 Nneka max [facility] CBC W/PLT COUNT & AUTO 2020-09-24 05:11:00 Ayden [facility] IRON, TIBC, % SAT. 2020-09-24 05:10:00 Nneka, [facility]WITHOUT FERRITIN[facility] 2020-09-24 05:10:00 Nneka, [facility] POCT-GLUCOSE METER 2020-09-23 21:25:00 Ayden [facility] US RENAL COMPLETE 2020-09-23 20:30:00 Nneka, [facility] URINALYSIS W/ REFLEX URINE 2020-09-23 16:58:00 Nneka, [facility] CULTURE [facility] SODIUM, RANDOM URINE 2020-09-23 16:58:00 Nneka, [facility] CHLORIDE, RANDOM URINE 2020-09-23 16:58:00 Nneka, [facility] Vikash [facility] POTASSIUM, RANDOM URINE 2020-09-23 16:58:00 Nneka, max Suh C [facility] UREA NITROGEN, RANDOM 2020-09-23 16:58:00 Nneka, [facility] URINE [facility] CREATININE, RANDOM URINE 2020-09-23 16:58:00 Nneka, [facility] PROTEIN, RANDOM URINE 2020-09-23 16:58:00 Nneka, [facility] POCT-GLUCOSE METER 2020-09-23 16:20:00 Ayden [facility] POCT-GLUCOSE METER 2020-09-23 11:40:00 Ayden [facility] 2D ECHO W/ DOPPLER 2020-09-23 08:00:54 Ayden [facility] (CW/PW/COLOR) [facility] POCT-GLUCOSE METER 2020-09-23 07:58:00 Ayden [facility] XR FOOT 3 VIEWS LEFT 2020-09-23 07:33:00 Laura Nguyen [facility] CBC W/PLT COUNT & AUTO 2020-09-23 04:51:00 [facility] BASIC METABOLIC PANEL (7) 2020-09-23 04:51:00 HensleyGretchen I [facility] MAGNESIUM 2020-09-23 04:51:00 Ayden [facility] PHOSPHORUS 2020-09-23 04:51:00 [facility] CBC W/PLT COUNT & AUTO 2020-09-23 04:51:00 [facility] POCT-GLUCOSE METER 2020-09-22 20:46:00 [facility] POCT-GLUCOSE METER 2020-09-22 17:01:00 Ayden [facility] SARS-COV2/RT-PCR ([facility] & 2020-09-22 10:50:00 Ayden [facility] REF LABS) [facility] B-TYPE NATRIURETIC FACTOR 2020-09-22 06:54:00 David iRddle [facility] (BNP) [facility] BASIC METABOLIC PANEL (7) 2020-09-22 06:54:00 David Riddle [facility] CBC W/PLT COUNT & AUTO 2020-09-22 06:54:00 David Riddle [facility] PT/APTT 2020-09-22 06:54:00 David Riddle [facility] TROPONIN I 2020-09-22 06:54:00 David Riddle [facility] CBC W/PLT COUNT & AUTO 2020-09-22 06:54:00 David Riddle [facility] ED ECG INTERPRETATION 2020-09-22 06:40:53 David Riddle [facility] XR CHEST 1 VIEW PORTABLE / 2020-09-22 06:36:00 David Riddle [facility] REPORT OF PROCEDURE - 2020-09-22 00:00:00 ProviderMolina [facility] - ENDOSCOPY SCAN Scanning [facility] GLUCOSE BLOOD TEST 2020-09-17 00:00:00 Access Will [...] COUNT & AUTO 2020-04-30 18:40:00 David Riddle [facility] LACTIC ACID, VENOUS 2020-04-30 18:40:00 David Riddle [facility] COMPREHENSIVE METABOLIC 2020-04-30 18:40:00 David Riddle [facility] PROTHROMBIN TIME/INR 2020-04-30 18:40:00 David Riddle [facility] TYPE AND SCREEN, AUTOMATED 2020-04-30 18:40:00 David Riddle [facility] CBC W/PLT COUNT & AUTO 2020-04-30 18:40:00 David Riddle [facility] GLUCOSE BLOOD TEST 2020-04-26 00:00:00 Access Will alth OFFICE/OUTPATIENT VISIT 2020-04-26 00:00:00 [facility] EST POCT-GLUCOSE METER 2020-04-06 08:02:00 Frandy Lugo [facility] BASIC METABOLIC PANEL (7) 2020-04-06 04:26:00 Frandy Lugo [facility] CBC W/PLT COUNT & AUTO 2020-04-06 04:26:00 Frandy Lugo [facility] CBC W/PLT COUNT & AUTO 2020-04-06 04:26:00 Frandy Lugo [facility] POCT-GLUCOSE METER 2020-04-05 22:06:00 Frandy Lugo [facility] POCT-GLUCOSE METER 2020-04-05 15:18:00 Frandy Lugo [facility] POCT-GLUCOSE METER 2020-04-05 11:37:00 Frandy Lugo [facility] IR PICC LINE PLACEMENT 2020-04-05 11:14:[address] [facility] OLDER THAN 5 YRS [facility] POCT-GLUCOSE METER 2020-04-05 09:23:00 Frandy Lugo [facility] POCT-GLUCOSE METER 2020-04-05 07:59:00 Frandy Lugo [facility] BASIC METABOLIC PANEL (7) 2020-04-05 04:40:00 Frandy Lugo [facility] CBC W/PLT COUNT & AUTO 2020-04-05 04:40:00 ShiFrandy wood [facility] CBC W/PLT COUNT & AUTO 2020-04-05 04:40:00 Frandy Lugo [facility] VANCOMYCIN LEVEL, TROUGH 2020-04-04 23:37:00 Stephane Echavarria [facility] POCT-GLUCOSE METER 2020-04-04 21:14:00 Frandy Lugo [facility] POCT-GLUCOSE METER 2020-04-04 15:41:00 ShiFrandy wood [facility] POCT-GLUCOSE METER 2020-04-04 11:36:00 ShiFrandy wood [facility] POCT-GLUCOSE METER 2020-04-04 07:45:00 Frandy Lugo [facility] PROTEIN ELECTROPHORESIS, 2020-04-04 05:23:00 Keven Tiwari [facility] PTH, INTACT 2020-04-04 05:23:00 Keven Tiwari [facility] BASIC METABOLIC PANEL (7) 2020-04-04 05:23:00 Frandy Lugo [facility] CBC W/PLT COUNT & AUTO 2020-04-04 05:23:00 Frandy Lugo [facility] CBC W/PLT COUNT & AUTO 2020-04-04 05:23:00 Frandy Lugo [facility] POCT-GLUCOSE METER 2020-04-03 21:31:00 Frandy Lugo [facility] KAPPA / LAMBDA LIGHT 2020-04-03 17:10:00 Te Baca [facility], SERUM [facility] HC LAB HIV-1 AG W/HIV-1&2 2020-04-03 17:10:00 Keven Tiwari [facility] HEPATITIS PANEL, ACUTE 2020-04-03 17:10:[address] [facility] CBC W/PLT COUNT & AUTO 2020-04-03 17:10:00 Feliceclifford Baca [facility] BASIC METABOLIC PANEL (7) 2020-04-03 17:10:00 Frandy Lugo [facility] CBC W/PLT COUNT & AUTO 2020-04-03 17:10:00 Keven Tiwari [facility] POCT-GLUCOSE METER 2020-04-03 16:05:00 Frandy Lugo [facility] POCT-GLUCOSE METER 2020-04-03 11:34:00 Frandy Lugo [facility] PROTEIN, RANDOM URINE 2020-04-03 10:52:00 Te Baca [facility] SODIUM, RANDOM URINE 2020-04-03 10:39:00 Frandy Lugo [facility] CREATININE, RANDOM URINE 2020-04-03 10:39:00 Frandy Lugo [facility] UREA NITROGEN, RANDOM 2020-04-03 10:39:[address] [facility] URINE [facility] URINALYSIS W/ MICROSCOPIC 2020-04-03 10:39:00 Frandy Lugo [facility] B-TYPE NATRIURETIC FACTOR 2020-04-03 10:20:00 Milagros Lainez [facility] (BNP) [facility] US RENAL COMPLETE 2020-04-03 08:45:00 Frandy Lugo [facility] POCT-GLUCOSE METER 2020-04-03 07:27[facility] 2020-04-03 04:48:00 [facility] BASIC METABOLIC PANEL (7) 2020-04-03 04:48:00 Lilliam [facility] PHOSPHORUS 2020-04-03 04:48:00 Keven Tiwari [facility] VANCOMYCIN LEVEL, TROUGH 2020-04-02 22:02:00 Jazmin Willard [facility] POCT-GLUCOSE METER 2020-04-02 21:17:00 [facility] LOWER EXTREMITY WITHOUT 2020-04-02 17:38:00 Ray Ellis [facility] CONTRAST [facility] POCT-GLUCOSE METER 2020-04-02 15:51:00 [facility] POCT-[facility]SE METER 2020-04-02 11:43:00 [facility] CBC (HEMOGRAM ONLY) 2020-04-02 06:31:00 [facility] BASIC METABOLIC PANEL (7) 2020-04-02 06:31:00 [facility] POCT-GLUCOSE METER 2020-04-01 15:37:00 [facility] ANAEROBIC CULTURE 2020-04-01 13:30:14 Laura Nguyen [facility] SURGICALLY OBTAINED 2020-04-01 13:30:14 Laura Nguyen [facility] - CULTURE + GRAM STAIN Medical Matty ter ANAEROBIC CULTURE 2020-04-01 13:21:05 Patrick [facility] SURGICALLY OBTAINED 2020-04-01 13:21:05 Laura Nguyen [facility] - CULTURE + GRAM STAIN Medical [facility]ty ter TISSUE EXAM 2020-04-01 13:12:00 Patrick [facility] POCT-GLUCOSE METER 2020-04-01 12:48:00 [facility]&D,WOUND 2020-04-01 11:52:00 , [facility] POCT-GLUCOSE METER 2020-04-01 11:37:00 Lilliam, [facility] ECG 12-LEAD 2020-04-01 08:42:02 Unknown, Hl7 [facility] ECG 12-LEAD 2020-04-01 08:42:02 Unknown, Hl7 [facility] POCT-GLUCOSE METER 2020-04-01 07:24:00 [facility] BASIC METABOLIC PANEL (7) 2020-04-01 03:58:00 [facility] POCT-GLUCOSE METER 2020-03-31 20:42:00 [facility] POCT-[facility]UCOSE METER 2020-03-31 15:27[facility]SE [facility]ER 2020-03-31 11:22:00 [facility] POCT-GLUCOSE METER 2020-03-31 07:18:00 [facility] BASIC METABOLIC PANEL (7) 2020-03-31 04:47:00 [facility] HEMOGLOBIN A1C 2020-03-31 04:47:00 [facility] CBC W/PLT COUNT & AUTO 2020-03-31 04:47:00 [facility] CBC W/PLT COUNT & AUTO 2020-03-31 04:47:00 [facility] POCT-GLUCOSE METER 2020-03-30 21:59:00 [facility] XR FOOT 3 VIEWS LEFT 2020-03-30 21:05:00 [facility] WOUND CULTURE + GRAM STAIN 2020-03-30 20:54:00 [facility] SARS-COV2/RT-PCR ([facility] & 2020-03-30 20:50:00 [facility] REF LABS) [facility] BLOOD CULTURE 2020-03-30 20:49:00 [facility] CBC W/PLT COUNT & AUTO 2020-03-30 20:49:00 [facility] BASIC METABOLIC PANEL (7) 2020-03-30 20:49:00 [facility] CBC W/PLT COUNT & AUTO 2020-03-30 20:49:00 [facility] CARDIAC CATH REPORT - SCAN 2020-03-30 00:00:00 Provider [facility] REPORT OF PROCEDURE - 2020-03-30 00:00:00 Provider [facility] ENDOSCOPY SCAN [facility] BLOOD CULTURE 2020-03-20 01:07:00 David Riddle [facility] LACTIC ACID, VENOUS 2020-03-20 01:07:00 David Riddle [facility] CBC W/PLT COUNT & AUTO 2020-03-20 00:55:00 David Riddle [facility] BASIC METABOLIC PANEL (7) 2020-03-20 00:55:00 David Riddle [facility] C-REACTIVE PROTEIN 2020-03-20 00:55:00 David Riddle [facility] CBC W/PLT COUNT & AUTO 2020-03-20 00:55:00 David Riddle [facility] BLOOD CULTURE 2020-03-20 00:54:00 David Riddle [facility] XR FOOT 3 VIEWS LEFT 2020-03-20 00:37:00 David Riddle [facility] GLUCOSE BLOOD TEST 2020-03-06 00:00:00 Access Will [...] INCISION AND DRAINAGE 2019 07:17:11 Tyshawn Serra [facility] GLUCOSE BLOOD TEST 2019-11-09 00:00:00 Access [...] s - Test 00:00:00 (procedure) [code = [facility] 22921317] Future Scheduled 2023-03-[address] [facility] [facility] - Test 00:00:00 (procedure) [code = [facility] 51711159] Future Scheduled 2023-03-[address] [facility] - Test 00:00:00 (procedure) [code = [facility] [id number]] Future Scheduled 2023-03-[address] [facility] - Test 00:00:00 (procedure) [code = [facility] 78660277] Future Scheduled 2023-03-[address] [facility] 00:00:00 (procedure) [code = [facility] 43428700] Future Scheduled 2023-03-[address] [facility] 00:00:00 (procedure) [code = [facility] 37526539] Future Scheduled 2023-03-[address] [facility] 00:00:00 (procedure) [code = [facility] 94214163] Future Scheduled 2021-09-[address] [facility] examination Medical Center (regime/therapy) [code = 047361769] Future Scheduled 2021-09-[address] [facility] examination Medical Center (regime/therapy) [code = 221937457] Future Scheduled 2021-09-[address] [facility] examination Medical Center (regime/therapy) [code = 053747358] Future Scheduled 2021-09-[address] [facility] examination Medical Center (regime/therapy) [code = 046104301] Future Scheduled 2021-09-[address] [facility] examination Medical Center (regime/therapy) [code = 427595970] Future Scheduled 2021-09-[address] [facility]00 examination Medical Center (regime/therapy) [code = 207520020] Future Scheduled 2021-09-[address] [facility] examination Medical Center (regime/therapy) [code = 218484598] Future Scheduled 2020-11-27 INFLUENZA VACCINE (#1) C [...] 00:00:00 measurement Medical Center (procedure) [code = 55090770] Future Scheduled 2020-06-[address] [facility]00 measurement [facility] (procedure) [code = 92705352] Future Scheduled 2020-06-[address] [facility]:00 measurement [facility] (procedure) [code = 48989936] Future Scheduled 2020-06-[address] [facility]:00 measurement [facility] (procedure) [code = 53465353] Future Scheduled 2020-06-[address] [facility]:00 measurement [facility] (procedure) [code = 37144888] Future Scheduled 2020-06-[address] [facility]:00 measurement [facility] (procedure) [code = 02905736] Future Scheduled 2020-06-[address] [facility] 00:[facility]:00 measurement Medical Center (procedure) [code = 16093493] Future Scheduled 2018-06-11 Urine screening for [facility] 00:00:00 protein (procedure) Medical Center [code = 510229224] Future Scheduled 2018-06-11 Urine screening for [facility] 00:00:00 protein (procedure) Medical Center [code = 401015125] Future Scheduled 2018-06-11 Urine screening for [facility] 00:00:00 protein (procedure) Medical Center [code = 356508406] Future Scheduled 2018-06-11 Urine screening [facility] 00:00:00 protein (procedure) Medical Center [code = 257233234] Future Scheduled 2018-06-11 Urine screening for [facility] 00:00:00 protein (procedure) Medical Center [code = 367428863] Future Scheduled 2018-06-11 Urine screening for [facility] 00:00:00 protein (procedure) Medical Center [code = 579735306] Future Scheduled 2018-06-11 Urine screening [facility] 00:00:00 protein (procedure) Medical Center [code = 575535560] Future Scheduled 1992 DTAP/TDAP/TD VACCINES CH [facility] [...] [facility] l Center colon (procedure) [code = 981654510] Future Scheduled [address] [facility] 00:[facility]:00 malignant neoplasm of [facility] colon (procedure) [code = 921209663] Future Scheduled [address] [facility] 00:[facility]:00 [facility] colon (procedure) [code = 474650148] Future Scheduled [address] [facility] 00:[facility]:00 [facility] colon (procedure) [code = 955625753] Future Scheduled [address] [facility] 00:[facility]:00 [facility] colon (procedure) [code = 904900068] Future Scheduled [address] [facility] 00:[facility]:00 [facility] colon (procedure) [code = 835018980] Future Scheduled [address] [facility] 00:[facility]:00 malignant ne[facility] colon (procedure) [code = 236574750] Encounters Start End Encounter Admission Attending Care Care Encounter Source Date/Time Date/Time Type Type Clinicians Facility Department ID 2021-04-02 2021-04-02 Outpatient [facility] [id number] Access 11:59:00 11:59:00 [facility] 2021-03-27 2021-03-27 Outpatient [facility] [id number] Access 08:12:00 08:12:00 [facility] 2021-03-27 2021-03-27 Outpatient [facility] [id number] Access 08:12:00 08:12:00 [facility] 22-4926-a4f 69e-4048-9 Health f-[id number] alexander [id number] 2021-02-05 2021-02-05 Outpatient NURSE, [facility] [id number] Access 08:34:00 08:34:00 NURSE [facility] 2021-02-05 2021-02-05 Outpatient NURSE, [facility] [id number] c7f [id number]-7 Access 08:34:00 08:34:00 NURSE 22-4926-a4f 27a-4773-9 Health f-40249716g 7fb-1305a7 alexander [id number] 9479-11-05 2021-01-31 Outpatient DIANE, [facility] [id number] Access 12:07:00 12:07:00 [facility] 2021-01-31 2021-01-31 Outpatient DIANE [facility] [id number] Access 12:07:00 12:07:00 [facility] e2-8oz7-54n 77b-4d44-9 [facility] [id number]-[id number] 0f4 [id number] 2021-01-29 2021-01-29 Outpatient DIANE, [facility] [id number] Access 10:00:00 10:00:00 [facility] 2021-01-29 2021-01-29 OFFICE/OUT DIANE [facility] [id number] 1 [id number] Access 10:00:00 10:00:00 PATIENT MIRTA 22-4926-a4f l28-4ujy-i Health VISIT EST f-[id number] [id number]-[id number] alexander [id number] 2021-01-06 2021-01-06 Outpatient OSEI [facility] [id number] Access 10:24:00 10:24:00 [facility] 2021-01-06 2021-01-06 Outpatient OSEI [facility] [id number] db1 [id number] Access 10:24:00 10:24:00 [facility] 22-4926-a4f 382-4f2f-b Health f-45228046p [id number] alexander [id number] 2020-12-11 2020-12-11 Outpatient OSEI, [facility] [id number] Access 14:09:00 14:09:00 [facility] 2020-12-11 2020-12-11 Outpatient OSEI [facility] [id number] [id number] Access 14:09:00 14:09:00 [facility] e2-9fe6-10n da5-4cb6-9 [facility] [id number]-[id number] 0f4 6ed33f 2020-12-11 2020-12-11 Outpatient NURSE, [facility] [id number] Access 13:49:00 13:49:00 NURSE [facility] 2020-12-11 2020-12-11 Outpatient NURSE, [facility] [id number] [id number] [id number] Access 13:49:00 13:49:00 NURSE 22-4926-a4f 06f-4acf-8 Health f-84811338l m12-0008m2 alexander [id number] 2020-12-06 2020-12-06 Outpatient DIANE, [facility] [id number] Access 10:17:00 10:17:00 [facility] 2020-12-06 2020-12-06 Outpatient DIANE, [facility] [id number] Access 10:17:00 10:17:00 [facility] 22-4926-a4f 937-42b7-9 Health f-[id number] 3f6-j34x8w alexander [id number] 2020-11-04 2020-12-05 Outpatient Neida NGUYEN Neida [id number] [facility] 09:15:00 23:59:00 [facility] 2020-12-03 2020-12-03 Outpatient DIANE, [facility] [id number] Access 09:00:00 09:00:00 [facility] 2020-12-03 2020-12-03 OFFICE/OUT DIANE [facility] [id number] Access 09:00:00 09:00:00 PATIENT M[facility] 22-4926-a4f cc3-429e-b Health VISIT EST f-[id number] alexander [id number] 2635-09-07 2020-12-03 Outpatient DIANE, [facility] [id number] Access 00:00:00 00:00:00 [facility] 2020-12-03 2020-12-03 [facility] [id number] Access 00:00:00 00:00:00 [facility] ed-4120-b9c 9c7-58ef-i Health 7-[id number] dd9-c5o671 27a 14fcc1 2020-10-07 2020-11-06 Outpatient [facility] [place] [id number] [facility] 08:58:00 15:34:00 [facility] 2020-11-02 2020-11-02 Outpatient CONTRERAS, [facility] [id number] Access 10:08:00 10:08:00 [facility] 2020-11-02 2020-11-02 [facility] [id number] Access 10:08:00 10:08:00 [facility] 22-4926-a4f 3ac-4fb1-9 Health f-[id number] 3ff-44aa5d alexnader acf95f 2020-10-29 2020-10-29 Outpatient Neida DIANE [facility] [id number] [facility] 10:49:00 23:59:00 [facility] 2020-10-29 2020-10-[address] [facility] [id number] Access 08:30:00 08:30:00 [facility] 2020-10-29 2020-10-29 [facility] [id number] Access 08:30:00 08:30:00 PATIENT [facility] 22-4926-a4f 799-42b5-b Health VISIT EST f-[id number] n4c-5q9e3w alexander [id number] 2020-10-01 2020-10-[address] [facility] [id number] Access 13:25:00 13:25:00 [facility] 2020-10-01 2020-10-01 [facility] [id number] [id number] Access 13:25:00 13:25:00 [facility] 22-4926-a4f bbe-4dcc-9 [facility] f-[id number] 976-38ac3a alexander [id number] 5650-06-27 2020-09-29 Hospital ER David Riddle [facility] [id number] [facility] 06:13:00 13:20:00 Encounter Gretchen Hensley [facility] 2020-09-26 2020-09-26 Surgery Patrick, [facility] [id number] 07:00:00 08:30:00 [facility] 2020-09-26 2020-09-26 Anesthesia Joanie, [facility] [id number] 07:12:00 08:20:00 Event [facility] 2020-09-22 2020-09-22 Emergency ER [facility] Emergency [id number] [facility] 06:09:00 06:09:00 2020-09-22 2020-09-22 Travel [facility] [id number] [facility] 00[facility]00 [facility] 2020-09-17 2020-09-[address] [facility] [id number] Access 10:30:00 10:30:00 [facility] 2020-09-17 2020-09-17 [facility] [id number] b wysw444-v Access 10:30:00 10:30:00 PATIENT M[facility] 22-4926-a4f x4x-1770-q Health VISIT EST f-43472757k [id number] alexander [id number] 2020-08-19 2020-08-[address] [facility] [id number] Access 16:36:00 16:36:00 NAIF marie 2020-08-19 2020-08-19 Outpatient [facility] [id number] ffa f6547-o Access 16:36:00 16:36:00 NAIF Bravo4926-a4f 77c-448d- a Health f-60285930c 947-967f2c alexander [id number] 2020-08-15 2020-08-15 Outpatient OMORI, [facility] [id number] Access 16:00:00 16:00:00 NAIF marie 2020-08-15 2020-08-15 OFFICE/OUT STEFANI, [facility] [id number] b2d [id number] Access 16:00:00 16:00:00 PATIENT NAIF Bravo4926-a4f 0q7-18xz- 8 Health VISIT EST f-06326413k bfe-b7e8ff alexander [id number] 2020-07-04 2020-07-04 Outpatient OMORI, [facility] [id number] Access 08:04:00 08:04:00 NAIF marie 2020-07-04 2020-07-04 Outpatient OMORI, [facility] [id number] bf0 [id number] Access 08:04:00 08:04:00 NAIF Bravo4926-a4f g46-77lu- 8 Health f-52523227a 83a-8c2a7a alexander [id number] 2020-06-19 2020-06-19 Outpatient OMORI, [facility] [id number] Access 10:00:00 10:00:00 NAIF marie 2020-06-19 2020-06-19 Outpatient OMORI, [facility] [id number] [id number] Access 10:00:00 10:00:00 NAIF Estrella-4926-a4f 103-4d36- a Health f-69823212e [id number] alexander eaa20d 2020-05-09 2020-05-09 Outpatient OMORI, [facility] [id number] Access 12:10:00 12:10:00 NAIF marie 2020-05-09 2020-05-09 Outpatient OMORI, [facility] [id number] f95 [id number] Access 12:10:00 12:10:00 NAIF Estrella-4926-a4f 9af-4860- 9 Health f-34577496l 351-d55bc4 alexander [id number] 2020-04-30 2020-04-30 Emergency ER Parker, [facility] [id number] 18:09:00 19:41:00 [facility] 2020-04-30 2020-04-30 Emergency ER [facility] Emergency [id number] [facility] 17:53:00 17:53:00 2020-04-30 2020-04-30 Travel [facility] [id number] [facility] 00[facility]00 [facility] 2020-04-26 2020-04-26 Outpatient [facility], [facility] [id number] Access 10:00:00 10:00:00 NAIF marie 2020-04-26 2020-04-26 OFFICE/OUT [facility], [facility] [id number] 8f4 [id number] Access 10:00:00 10:00:00 PATIENT NAIF 22-4926-a4f 15b-403b- a Health VISIT EST f-[id number] alexander [id number] 2020-04-22 2020-04-22 Outpatient [facility], [facility] [id number] Access 14:45:00 14:45:00 NAIF marie 2020-04-22 2020-04-22 Outpatient [facility], [facility] [id number] 55c [id number]-3 Access 14:45:00 14:45:00 NAIF 22-4926-a4f 332-4409- b [facility] f-45339251w p52-gw40y5 alexander [id number] 2020-04-22 2020-04-22 Outpatient IRIZARRY, [facility] [id number] Access 12:41:00 12:41:00 SUKUMAR marie 2020-04-22 2020-04-22 Outpatient IRIZARRY, [facility] [id number] [id number] ddbd0-e Access 12:41:00 12:41:00 RAMYBRIGIDA e2-0fo7-52w 1p7-4a5x- 9 Health [id number] 30c-206d01 0f4 xx8555 2020-04-18 2020-04-18 Outpatient OMORI, [facility] [id number] Access 13:20:00 13:20:00 NAIF marie 2020-04-18 2020-04-18 Outpatient [facility], [facility] [id number]-9h 4ce f6kt5-6 Access 13:20:00 13:20:00 NAIF Bravo4926-a4f m21-4pb3- 9 Health f-72840957o i72-253682 alexander [id number] 2020-04-09 2020-04-09 Outpatient OMORI, [facility] [id number] Access 09:46:00 09:46:00 NAIF marie 2020-04-09 2020-04-09 [facility] [id number] [id number] [id number]-j Access 09:46:00 09:46:00 NAIF Bravo4926-a4f 7fb-45a5- 8 Health f-74507578z eb3-4da5a2 alexander dfcadb 2020-03-30 2020-04-06 [facility] Tyshawn Serra [facility] [id number] 19:31:00 13:42:00 [facility] 2020-04-04 2020-04-04 Outpatient [facility], [facility] [id number] Access 14:43:00 14:43:00 NAIF marie 2020-04-04 2020-04-04 Outpatient [facility], [facility] [id number] 1fd g4079-g Access 14:43:00 14:43:00 NAIF 22-4926-a4f j0o-8h77- 9 Health f-[id number] 186-296d9f alexander 6cbd5c 2020-04-01 2020-04-01 Anesthesia Jose Raul [facility] [id number] 11:51:00 12:50:00 Event [facility] 2020-04-01 2020-04-01 Surgery Patrick [facility] [id number] 11:30:00 12:45:00 [facility] 2020-04-01 2020-04-01 Orders [facility] [id number] 00:00:00 00:00:00 Only [facility] 2020-03-30 2020-03-30 Emergency ER [facility] Emergency [id number] [facility] 19:22:00 19:22:00 2020-03-30 2020-03-30 Travel [facility] [id number] [facility] 00:[facility] 00:00:00 [facility] 2020-03-19 2020-03-20 Emergency ER Venkatesh [facility] [id number] 23:25:00 02:51:00 [facility] 2020-03-19 2020-03-19 Emergency ER [facility] Emergency [id number] [facility] 23:15:00 23:15:00 2020-03-19 2020-03-19 Travel [facility] [id number] [facility] 00:[facility] 00:00:00 [facility] 2020-03-08 2020-03-08 Outpatient DINH CALVO [facility] [id number] Access 12:03:00 12:03:00 Health 2020-03-08 2020-03-08 Outpatient DINH CALVO [facility] [id number] Access 12:03:00 12:03:00 e2-2dc2-50l g87-8y38-o [facility] [id number] 9a5-081o8r 0f4 74b4d5 2020-03-06 2020-03-06 Outpatient [facility] [id number] Access 15:00:00 15:00:00 NAIF marie 2020-03-06 2020-03-06 OFFICE/OUT [facility] [id number]-[id number] 35b 30edf-4 Access 15:00:00 15:00:00 PATIENT NAIF 22-4926-a4f 79d-4bf4- 8 Health VISIT EST f-99122669y [id number]-ob5548 alexander [id number] 2019 2019 Emergency ER [facility] Emergency [id number] [facility] 07:11:00 07:11:00 2019-11-20 2019-11-20 [facility] [id number] Access 10:30:00 10:30:00 NAIF marie 2019-11-20 2019-11-20 Outpatient STEFANI, [facility] fin980qn-3f 8ff 81p6w-0 Access 10:30:00 10:30:00 NAIF Bravo4926-a4f ea8-46d7- a Health f-79578216e p88-s8fgt8 alexander [id number] 2019-11-09 2019-11-09 Outpatient [facility], [facility] [id number] Access 16:15:00 16:15:00 NAIF marie 2019-11-09 2019-11-09 OFFICE/OUT [facility], [facility] vlc103dy-2d f4c 0m024-o Access 16:15:00 16:15:00 PATIENT NAIF Bravo4926-a4f w5e-0g14- 8 Health VISIT EST f-84196236b [id number] alexander [id number] 2019-09-28 2019-09-28 Outpatient [facility], [facility] [id number]-2h 0d0 i9706-r Access 13:21:00 13:21:00 NAIF Bravo4926-a4f 189-4af1- 9 Health f-09227621x [id number] alexander [id number] 2019-09-28 2019-09-28 Outpatient DINH CALVO [facility] [id number] [id number]-c Access 10:54:00 10:54:00 e2-8aj9-88f 730-4d70-a Health 0-ob3yrn663 7ef-ba6cbd 0f4 40r578 2019-07-15 2019-07-15 Emergency [facility] [id number] [facility] 22:19:00 22:19:00 [id number] 2019-07-03 2019-07-03 OFFICE/OUT [facility], [facility] zof686ws-1j 81c 450l9-j Access 10:30:00 10:30:00 PATIENT NAIF Bravo4926-a4f 8cf-4b4d- b Health VISIT EST f-47866294q 5h5-fui6xx alexander [id number] 2019-05-09 2019-05-09 Outpatient [facility] 405 b938b-n Access 08:16:00 08:16:00 NAIF Bravo4926-a4 f1h-26j7- b Health -72466963a 12b-ff4e3d alexander ada41d 2019-05-01 2019-05-01 Outpatient [facility] 07a h8b6h-1 Access 09:27:00 09:27:00 NURSE Hanna6-a4f eab-46d9-9 [facility] f-54313318n p98-87o17b alexander [id number] 2019-04-11 2019-04-11 Outpatient OMORI, [facility]-1s 608 g5i74-y Access 17:52:00 17:52:00 NAIF Bravo4926-a4f u74-9k2m- 9 [facility]-07736081s 1ed-4c31d3 alexander a7dbdd 2019-04-06 2019-04-06 Outpatient OMORI, [facility]420bn-2g cfd 82589-7 Access 17:33:00 17:33:00 NAIF Bravo4926-a4f 877-42c1- a Health f-13073616n e69-51605o alexander [id number] 2019-04-04 2019-04-04 OFFICE/OUT OMORI, [facility]-4o 0a8 7m97b-3 Access 14:30:00 14:30:00 PATIENT NAIF Bravo4926-a4f lyudmila-46ec- b Health VISIT [facility] f-05520926w fd1-2857e5 alexander ab27a1 2018-09-07 2018-09-07 Outpatient OMORI, [facility]ac-2f 7e5 64fea-3 Access 00:00:00 00:00:00 NAIF Bravo4926-a4f 2ee-4361- b Health -99707188x s7i-3u1z79 alexander 88582d 2018-09-06 2018-09-06 Outpatient OMORI, [facility]pd[facility]yi-3f 69a 1r3t3-8 Access 09:34:00 09:34:00 NAIF Bravo4926-a4f cf2-4291- 9 Health f-95440178k db4-f91ed2 alexander [id number] 2018-07-26 2018-07-26 Outpatient ACCESSHEALT [facility] [id number] Access 00:00:00 00:00:00 H, PROVIDER Will garcia 2018-07-26 2018-07-26 Outpatient ACC[facility]ALT [facility] 9qz8u6l1-3u 5u13mh20-6 Access 00:00:00 00:00:00 H, PROVIDER april7if2-03e 24b-42 3c-8 Health 0-eu0ork855 036-5ea1f1 0f4 dc6a94 2018-07-26 2018-07-26 Outpatient CONTRERAS, [facility] mbm795bh-8b 7 so0qw38-7 Access 00:00:00 00:00:00 MIRTA 22-4926-a4f t07-92w5-h Health f-98614525o p18-9p0l47 alexander d785c1 2018-07-26 2018-07-26 Outpatient OMORI, [facility] 4eq6m9d2-5b [id number] ve892-4 Access 00:00:00 00:00:00 NAIF gabby-7zk9-76z 397-493a- a Health 0-gr6faa598 2d7-l1tu5o 0f4 29765x 2018-07-26 2018-07-26 Outpatient OMORI, [facility] lvb822xt-2a 499 c8v22-0 Access 00:00:00 00:00:00 NAIF Sameer-4926-a4f ba6-4f54- 8 Health f-48778213e 2o0-z9c11y alexander a45b7b 2018-07-25 2018-07-25 Outpatient OMORI, [facility] kkv833jn-2t 62b bbb95-e Access 00:00:00 00:00:00 NAIF Sameer-4926-a4f q80-6463- 8 Health f-79676093m cbf-5b3a7f alexander a1922u 2018-07-22 2018-07-22 Outpatient [facility] [id number] Access 00:00:00 00:00:00 H, PROVIDER Will garcia 2018-07-22 2018-07-22 Outpatient [facility] [id number] Access 00:00:00 00:00:00 H, PROVIDER tatyana6rv5-84m 1b8-4b 5b-b Health 0-qc3wun189 [id number]-899e22 0f4 [id number] 9599-04-26 2018-07-22 Outpatient OMORI, [facility] [id number] 44d 78f23-i Access 00:00:00 00:00:00 NAIF 22-4926-a4f 8cb-4f46- b Health f-[id number] alexander 871f2f 2018-07-22 2018-07-22 Outpatient DIANE, [facility] [id number] Access 00:00:00 00:00:00 MIRTA 22-4926-a4f z65-0cu0-p Health f-[id number] alexander cfbbac 2018-06-28 2018-06-28 Outpatient [facility] [id number] Access 00:00:00 00:00:00 H, PROVIDER Will garcia 2018-06-28 2018-06-28 Outpatient [facility] [id number] Access 00:00:00 00:00:00 H, PROVIDER tatyana5wb6-71v 17d-4e 23-9 Health 0-jq7nio796 [id number] 0f4 bc45ce 2018-03-30 2018-03-30 Outpatient [facility] [id number] Access 00:00:00 00:00:00 H, PROVIDER Will garcia 2018-03-30 2018-03-30 Outpatient [facility] [id number] Access 00:00:00 00:00:00 H, PROVIDER tatyana8my8-30m 710-43 22-8 Health 0-gi7qvl147 9m2-b6me11 0f4 7d1bee 2018-03-30 2018-03-30 Outpatient DIANE, [facility] [id number] 1 [id number] Access 00:00:00 00:00:00 MIRTA 22-4926-a4f 56a-40cb-a Health f-[id number] alexander [id number] 6119-01-02 2018-03-30 Outpatient JOSE FRANCISCO, [facility] [id number] 6q1ue-i Access 00:00:00 00:00:00 NAIF 22-4926-a4f 520-4c13- 8 Health f-[id number] b75-7wz7hh alexander [id number] 2017-12-28 2017-12-28 Outpatient [facility] [id number] Access 00:00:00 00:00:00 H, PROVIDER Will garcia 2017-12-28 2017-12-28 Outpatient [facility] [id number] Access 00:00:00 00:00:00 H, PROVIDER [id number] bed-49 71-9 [facility] [id number]-lv1qqq276 [id number] 0f4 06e2a8 2017-12-27 2017-12-27 Outpatient [facility] [id number] Access 00:00:00 00:00:00 H, PROVIDER Will garcia 2017-12-27 2017-12-27 Outpatient [facility] [id number] Access 00:00:00 00:00:00 H, PROVIDER gabby-0wm6-38k 1d0-43 b0-a Health 0-hq7iqz153 44c-ecfa29 0f4 4ln030 2017-12-20 2017-12-20 Outpatient DIANE, [facility] [id number] 9 [id number] Access 08:48:00 08:48:00 MIRTA 22-4926-a4f 224-45e3-9 Health f-[id number] fc6-096b3d alexander 040c9a 2017-12-20 2017-12-20 Outpatient [facility] [id number] Access 00:00:00 00:00:00 H, PROVIDER Will garcia 2017-12-20 2017-12-20 Outpatient [facility] [id number] Access 00:00:00 00:00:00 H, PROVIDER gabby-9cy3-75h b2c-4b 7d-b Health 0-ob6cyk901 [id number] 0f4 [id number] 2017-12-20 2017-12-20 Outpatient EDIE, [facility] [id number] 79a 19264-j Access 00:00:00 00:00:00 SUKUMAR 22-4926-a4f eae-4c31- b Health f-[id number] alexander 0a3c1f 2017-12-20 2017-12-20 Outpatient JOSE FRANCISCO, [facility] [id number]-3m 2e3 zvh5o-0 Access 00:00:00 00:00:00 NAIF 22-4926-a4f da8-4f41- a Health f-[id number] 12d-3adf05 alexander 0d5ff7 2017-12-20 2017-12-20 Outpatient ENRIQUE, [facility] [id number] a7c 0l795-a Access 00:00:00 00:00:00 GAYPAULRI 22-4926-a4f 4o5-9f2v-0 Health f-[id number]-j61k22 alexander 4b61d6 2017-12-20 2017-12-20 Outpatient JONAS, [facility] [id number] cf 48cmb6-v Access 00:00:00 00:00:00 MAEVE 22-4926-a4f 051-44b8-b Health f-81031680b 7z7-2j7418 alexander aee2d5 2017-07-14 2017-07-14 Outpatient [facility] [id number] Access 00:00:00 00:00:00 H, PROVIDER Will garcia 2017-07-14 2017-07-14 Outpatient [facility] 2ka6m2u2-2a dp6f0vf0-g Access 00:00:00 00:00:00 H, PROVIDER gabby-0lq6-38m 109-47 80-a Health 0-dl7hft255 784-i60938 0f4 01e0fc 2017-07-14 2017-07-14 Outpatient [facility] 4jc3o0x9-5p f0f 3w11j-m Access 00:00:00 00:00:00 e2-7ch3-64q 98a-4568-b Health 0-vk6trz816 001-941db6 0f4 9c42e9 2017-07-14 2017-07-14 Outpatient ENRIQUE, [facility] 4rm4d6b8-9t 7d1 j9ran-9 Access 00:00:00 00:00:00 GAYTARI e2-0zu6-73j 7cb-4bf9-9 Health 0-qt3zdh051 t56-9135s4 0f4 710024 1676-03-16 2017-06-11 Outpatient OMORI, [facility] skg942km-3l ded hp836-8 Access 00:00:00 00:00:00 NAIF 22-4926-a4f 849-421a- a Health f-12770214o 11b-54fdd4 alexander 9m4193 2017-06-10 2017-06-10 Outpatient [facility] 107 [id number] Access 00:00:00 00:00:00 H, PROVIDER Will garcia 2017-06-10 2017-06-10 Outpatient [facility] 9cu3k4x4-7r e5lyy4zz-4 Access 00:00:00 00:00:00 H, PROVIDER e2-8ui2-91y a95-4d 18-8 Health 0-uj0afb723 67d-88e2c2 0f4 2eef4c 2017-06-10 2017-06-10 Outpatient DIANE, [facility] wyg314qt-6d e eo0q1eo-2 Access 00:00:00 00:00:00 MIRTA 22-4926-a4f 3ac-43d9-9 Health f-80559710r 6de-12b752 alexander ceaffe 2017-06-10 2017-06-10 Outpatient EM, [facility] tby342ap-2y 27 x9qkam-8 Access 00:00:00 00:00:00 VITA 22-4926-a4f 0ec-4f3f -8 Health f-29602889k 3g8-2c7a79 alexander 63i101 2017-06-10 2017-06-10 Outpatient OMORI, [facility] bzr496om-6f 6d7 sq886-c Access 00:00:00 00:00:00 NAIF 22-4926-a4f h5s-1586- b Health f-76069858i 499-ag759z alexander jpc360 2017-04-09 2017-04-09 Outpatient OMORI, [facility] msn601rb-2d a22 0hdr0-9 Access 13:28:00 13:28:00 NAIF 22-4926-a4f 27b-4f1f- 8 Health f-43033083d 3ef-fa2b8f alexander 37260h 2017-04-09 2017-04-09 Outpatient [facility] 107 [id number] Access 00:00:00 00:00:00 H, PROVIDER Will garcia 2017-04-09 2017-04-09 Outpatient [facility] 3mz2m1a6-0b ui21892s-8 Access 00:00:00 00:00:00 H, PROVIDER e2-7xm2-43b acc-4b a3-b Health 0-ah9cpk323 x50-75zt7r 0f4 1p1247 2017-04-09 2017-04-09 Outpatient DIANE, [facility] ovw140wh-5j d 0417qs1-1 Access 00:00:00 00:00:00 MIRTA -4926-a4f be7-40fa-9 Health f-42361395l fad-beba5c alexander 745e5a 2017-03-30 2017-03-30 Outpatient [facility] 107 [id number] Access 00:00:00 00:00:00 H, PROVIDER Will garcia 2017-03-30 2017-03-30 Outpatient [facility] 6hy7f0v8-4q r7j9m915-c Access 00:00:00 00:00:00 H, PROVIDER april3xa0-47v e7f-41 b3-8 Health 0-ka5jab999 0ab-0pb200 0f4 5ba25a 2017-02-09 2017-02-09 Outpatient [facility] 107 [id number] Access 00:00:00 00:00:00 H, PROVIDER Will garcia 2017-02-09 2017-02-09 Outpatient [facility] 1up3f1t1-7h 56a3sb2o-9 Access 00:00:00 00:00:00 H, PROVIDER gabby-6my5-07b eed-49 91-9 Health 0-qa4idf765 725-54912g 0f4 de8ac2 2017-02-09 2017-02-09 Outpatient JOSE FRANCISCO, [facility] fim208bk-3i b35 yy550-6 Access 00:00:00 00:00:00 NAFI 22-4926-a4f a02-9x76- a Health f-21482998p w99-22i1g5 alexander 88c1fc 2017-02-09 2017-02-09 Outpatient DIANE, [facility] dbg246mm-1w d 30t8f02-y Access 00:00:00 00:00:00 MIRTA 22-4926-a4f 34c-46bd-b Health f-58564193p 70f-u8811z alexander faf56f 2016-12-15 2016-12-15 Outpatient [facility] 107 [id number] Access 00:00:00 00:00:00 H, PROVIDER Will garcia 2016-12-15 2016-12-15 Outpatient [facility] 2tz4x8z3-0f 535pl807-4 Access 00:00:00 00:00:00 H, PROVIDER valerie5oj3-52s 3ba-4a 3c-8 Health 0-jo0drk012 9fd-cceee0 0f4 5f5e8e 2016-12-15 2016-12-15 Outpatient CHARLY BARDALES [facility] 69g9322i-09 99pbe0d7-4 Access 00:00:00 00:00:00 45-0b7k-b3i g3d-36q5-s Health d-q6t918822 00b-ed1c16 354 e7dd8d 2016-12-12 2016-12-12 Outpatient [facility] 107 [id number] Access 00:00:00 00:00:00 H, PROVIDER Will garcia 2016-12-12 2016-12-12 Outpatient [facility] 0ec3q6y8-6t o2864we6-s Access 00:00:00 00:00:00 H, PROVIDER valerie3ph1-25t 6fa-4f 7f-9 Health 0-tr2wcw515 402-fe6f8d 0f4 1526bf 2016-12-12 2016-12-12 Outpatient ISAURA, [facility] 8rt5y1l8-8o 91 8j16xe-1 Access 00:00:00 00:00:00 CHRISTINA e2-3zw5-11i s4h-0vos- 9 Health 0-cg5tol110 558-4d60f7 0f4 f917d6 2016-12-11 2016-12-11 Outpatient CHARLY BARDALES [facility] 46p4693a-28 c15j6o9a-8 Access 00:00:00 00:00:00 45-1p2o-i1w 3fe-4dc9-9 Health d-g6h897342 474-f474cb 354 c4eb2b 2016-12-10 2016-12-10 Outpatient [facility] 107 [id number] Access 00:00:00 00:00:00 H, PROVIDER Will garcia 2016-12-10 2016-12-10 Outpatient [facility] 0ns0o7a0-4a 455hqc7o-7 Access 00:00:00 00:00:00 H, PROVIDER gabby-7ep8-62x 706-4a aa-b Health 0-ft6gsy743 af4-5611ae 0f4 493501 4787-09-14 2016-12-10 Outpatient CHARLY BARDALES [facility] 72u8756d-77 8kv77m71-q Access 00:00:00 00:00:00 45-3p9q-n3q i2x-5547-s Health d-t6n806779 j2i-08d5e3 354 5b51dc 2016-12-01 2016-12-01 Outpatient [facility] 107 [id number] Access 00:00:00 00:00:00 H, PROVIDER Will garcia 2016-12-01 2016-12-01 Outpatient [facility] 2yq3a5b7-6d 3yb5o0v7-8 Access 00:00:00 00:00:00 H, PROVIDER e2-7jf3-85p 4f5-4c 72-9 Health 0-ci1tbe843 p7q-4fh561 0f4 8ff05c 2016-12-01 2016-12-01 Outpatient DIPIKA [facility] 12f9960g-41 42 bq77fo-1 Access 00:00:00 00:00:00 LAVELLE 45-2p0p-i4f 636-4710-8 Health d-n6x167652 2ff-2f9a6a 354 ef57e5 2016-12-01 2016-12-01 Outpatient CHARLY BARDALES [facility] 39w5777i-32 grjx6614-b Access 00:00:00 00:00:00 45-0q2q-t4f df0-4210-a Health d-n5c133511 8t9-807u5t 354 1v5925 2016-11-27 2016-11-27 Outpatient [facility] 107 [id number] Access 00:00:00 00:00:00 H, PROVIDER Will garcia 2016-11-27 2016-11-27 Outpatient [facility] 0ab9g0l6-6r hzy2k7qj-2 Access 00:00:00 00:00:00 H, PROVIDER april4zr7-96i db1-44 51-9 Health 0-ep6dvk756 6r0-b5i136 0f4 825420 6940-09-01 2016-11-27 Outpatient DORISR, [facility] 70u0209o-94 72 q1um99-5 Access 00:00:00 00:00:00 LAVELLE Pepe1y1o-j4n q75-27r5-w Health d-t9h928029 384-b0c4cd 354 eb80b5 2016-11-26 2016-11-26 Outpatient [facility] 107 [id number] Access 00:00:00 00:00:00 H, PROVIDER Will garcia 2016-11-26 2016-11-26 Outpatient [facility] 4rl2a2l4-4b 8e520aq8-h Access 00:00:00 00:00:00 H, PROVIDER valerie1ed1-93g c45-46 cf-b Health 0-il3tkg405 4ad-4c0e68 0f4 37dc7c 2016-11-26 2016-11-26 Outpatient DORISR, [facility] 98v5306d-55 c0 hj4271-0 Access 00:00:00 00:00:00 LAVELLE Pepe8s1t-q5e ae7-40e5-a Health d-l4v124414 m10-1l96f2 354 fc21e9 2016-11-20 2016-11-20 Outpatient [facility] 107 [id number] Access 00:00:00 00:00:00 H, PROVIDER Will garcia 2016-11-20 2016-11-20 Outpatient [facility] 9pj8u9l9-5w [id number] Access 00:00:00 00:00:00 H, PROVIDER april4lx6-95y 2e2-42 0d-8 Health 0-cf9cmu821 z99-316k13 0f4 53v065 2016-11-20 2016-11-20 Outpatient DIPIKA, [facility] 58p8696x-40 60 83o935-b Access 00:00:00 00:00:00 LAVELLE Kemp-4t8o-t5r 250-49d0-a Health d-q8x204199 aa8-0b8ad1 354 682285 0056-08-23 2016-11-18 Outpatient [facility] 107 [id number] Access 00:00:00 00:00:00 H, PROVIDER Will garcia 2016-11-18 2016-11-18 Outpatient [facility] 5pt7f7i2-7g 00808b19-i Access 00:00:00 00:00:00 H, PROVIDER gabby-9vv2-37z 7d4-4d a9-8 Health 0-tm6hlo549 l00-26cpqz 0f4 c11e26 2016-11-18 2016-11-18 Outpatient CHARLY BARDALES [facility] 23h5998y-39 [id number]-y Access 00:00:00 00:00:00 45-1a7t-d2i ea3-4257-a Health d-g0b446201 2cc-9275f9 354 e49a35 2016-11-12 2016-11-12 Outpatient DIPIKA, [facility] 19a9036c-44 29 55b620-m Access 00:00:00 00:00:00 LAVELLE 45-7j6d-d1p z7t-2yc7-h Health d-a9x181380 a6u-446hy2 354 yr7403 2016-11-11 2016-11-11 Outpatient [facility] 107 [id number] Access 00:00:00 00:00:00 H, PROVIDER Will garcia 2016-11-11 2016-11-11 Outpatient [facility] 9kz1v2f5-2m 2q21556t-5 Access 00:00:00 00:00:00 H, PROVIDER april6hd8-87f 968-42 07-b Health 0-vz1pbh676 s74-965260 0f4 9f36c8 2016-11-11 2016-11-11 Outpatient DIPIKA, [facility] [id number]-80 7c m20t5h-t Access 00:00:00 00:00:00 LAVELLE 45-4m0l-p8p 633-4aa9-8 Health d-j0r198003 fff-686590 354 ee4a0e 2016-10-30 2016-10-30 Outpatient [facility] 107 [id number] Access 00:00:00 00:00:00 H, PROVIDER Will garcia 2016-10-30 2016-10-30 Outpatient [facility] 0sl2k1g7-5y b79uo816-4 Access 00:00:00 00:00:00 H, PROVIDER april8rn1-79c 47b-46 3e-8 Health 0-gs6ool011 j0l-kan8e1 0f4 3f2702 2016-10-30 2016-10-30 Outpatient CHARLY BARDALES [facility] 64d6574r-58 5298j43n-l Access 00:00:00 00:00:00 45-7p9v-l1w evert-47eb-b Health d-k8u318028 2l5-29a2qv 354 7383d1 2016-10-26 2016-10-26 Outpatient [facility] 107 [id number] Access 00:00:00 00:00:00 H, PROVIDER Will garcia 2016-10-26 2016-10-26 Outpatient [facility] 9im7d7l3-0t 8yj08s90-9 Access 00:00:00 00:00:00 H, PROVIDER april3ae7-93u 1e9-4c db-b Health 0-yg0uiu214 c01-h430lj 0f4 48ce57 2016-10-26 2016-10-26 Outpatient DELAROSA, [facility] 4uf2t4p7-8f e8 78fu60-8 Access 00:00:00 00:00:00 CHRISTINA e2-1xx9-06f c8q-4161- 9 Health 0-do2vub843 n0r-e5p3b7 0f4 7373c9 2016-10-26 2016-10-26 Outpatient JOSE FRANCISCO, [facility] 9ft8n8z5-3z 5e5 0y7yf-0 Access 00:00:00 00:00:00 NAIF e2-1ai6-52f q36-0s11- b Health 0-ux3jia556 000-vy8305 0f4 79f96a 2016-10-09 2016-10-09 Outpatient CANAMAR, [facility] [id number]-78 cf 6536cf-2 Access 00:00:00 00:00:00 LAVELLE 45-0s7n-v9t 038-47e9-8 Health d-n2n435948 93d-796d4d 354 1ee1de 2016-10-08 2016-10-08 Outpatient [facility] 107 [id number] Access 00:00:00 00:00:00 H, PROVIDER Will garcia 2016-10-08 2016-10-08 Outpatient [facility] 9sj7m9x6-2u 7156v516-r Access 00:00:00 00:00:00 H, PROVIDER april4vu8-51t 757-44 91-a Health 0-sq2eqa279 338-7c8ea0 0f4 m6n939 2016-10-08 2016-10-08 Outpatient CANAMAR, [facility] 16t2557s-78 46 uz8qe1-0 Access 00:00:00 00:00:00 LAVELLE Kmep-5w4o-d2u w80-9q6d-y Health d-p6y205821 65d-fda44a 354 c196f4 2016-10-05 2016-10-05 Outpatient [facility] 107 [id number] Access 00:00:00 00:00:00 H, PROVIDER Will garcia 2016-10-05 2016-10-05 Outpatient [facility] 0za7e2v2-2e 94m8tf3d-4 Access 00:00:00 00:00:00 H, PROVIDER gabby-0zu5-41q 137-4e 58-a Health 0-xh9txd075 0aa-91105z 0f4 tk842o 2016-10-05 2016-10-05 Outpatient DIPIKA, [facility] 74e4533q-45 c9 0y84n1-g Access 00:00:00 00:00:00 LAVELLE 45-8u7b-q1b 9s4-456s-w Health d-x6n581776 t11-gv43kw 354 135029 0548-06-29 2016-09-24 Outpatient [facility] 107 [id number] Access 00:00:00 00:00:00 H, PROVIDER Will garcia 2016-09-24 2016-09-24 Outpatient [facility] 4df3z7i8-5t 44sx5v98-o Access 00:00:00 00:00:00 H, PROVIDER tatyana6vx7-73q 9da-4d 9e-a Health 0-ff6bsy603 d35-25152k 0f4 0747d9 2016-09-24 2016-09-24 Outpatient ISAURA, [facility] 8ua0u0m3-9d af 253303-q Access 00:00:00 00:00:00 CHRISTINA e2-9at9-13n u62-012w- b Health 0-dn4xlk168 e0c-7r410y 0f4 7bee42 2016-09-24 2016-09-24 Outpatient JOSE FRANCISCO, [facility] 3du4h5o8-5e 060 9q8u3-5 Access 00:00:00 00:00:00 NAIF e2-9sq1-23k 4bb-4165- a Health 0-hs7hqv516 98a-1h250v 0f4 42y318 2016-09-22 2016-09-22 Outpatient [facility] [id number] Access 00:00:00 00:00:00 H, PROVIDER Will garcia 2016-09-22 2016-09-22 Outpatient [facility] 8kt9r8y4-4t 0q9134cj-9 Access 00:00:00 00:00:00 H, PROVIDER tatyana2bd8-57j 072-4c 2a-9 Health 0-jy7dzi632 094-b1ac8e 0f4 1311cf 2016-09-22 2016-09-22 Outpatient TIMA, [facility] 6lp5n2v7-0r 292 72ebd-f Access 00:00:00 00:00:00 OSMAN e2-6lx2-51e 330-4e57-a Health 0-rh8ktu579 92e-33cd44 0f4 6c0860 2016-09-22 2016-09-22 Outpatient DIANE, [facility] 4kz3e2s1-3j 2 5w4xtd9-j Access 00:00:00 00:00:00 MIRTA e2-1ek6-71z 87b-4174-a Health 0-tu6yvg543 470-02v094 0f4 1573c2 2016-08-26 2016-08-26 Outpatient [facility] [id number] Access 00:00:00 00:00:00 H, PROVIDER Will garcia 2016-08-26 2016-08-26 Outpatient [facility] 8kg1q5x8-0t n757ssvp-b Access 00:00:00 00:00:00 H, PROVIDER e2-7ij2-86e a1b-4a 92-8 Health 0-iz6hfo109 u86-3rlq48 0f4 7ka202 2016-08-26 2016-08-26 Outpatient DELAROSA, [facility] 0xi5l0u0-0q da vqy19j-4 Access 00:00:00 00:00:00 CHRISTINA e2-3ho2-88d 81b-44be- a Health 0-jb6qfn872 452-8w2200 0f4 5i2331 2016-08-26 2016-08-26 Outpatient IRIZARRY, [facility] 0bs2q7e1-2p afb 3kr05-9 Access 00:00:00 00:00:00 KATELINE e2-3wi2-90c 026-4182- b Health 0-vp9cdu501 11d-8p6621 0f4 7k0162 2016-08-26 2016-08-26 Outpatient OMORI, [facility] 1nb9p9n9-6t c21 101ca-e Access 00:00:00 00:00:00 NAIF e2-1qg5-79m u1q-2180- a Health 0-jd9tel091 ec7-x08528 0f4 92c4e9 2016-08-03 2016-08-03 Outpatient TIMA, [facility] hos890oa-0j e56 5cb38-n Access 16:13:00 16:13:00 OSMAN 22-4926-a4f 17d-4116-b Health f-45050174u 320-16acc1 alexander 11df8e 2016-07-29 2016-07-29 Outpatient [facility] [id number] Access 00:00:00 00:00:00 H, PROVIDER Will garcia 2016-07-29 2016-07-29 Outpatient [facility] 2ts0w2h0-9k 1dyf7846-4 Access 00:00:00 00:00:00 H, PROVIDER april0fd4-49z 2c6-43 ca-8 Health 0-ub5phm115 fe8-48fadf 0f4 54c2ba 2016-07-29 2016-07-29 Outpatient TIMA, [facility] ldq251hv-7y a6f 15zd5-3 Access 00:00:00 00:00:00 OSMAN 22-4926-a4f 6ad-4eac-9 Health f-47511486r ab0-86e98c alexander n7529b 2016-07-29 2016-07-29 Outpatient DIANE, [facility] gsx014vm-4c d w82fo28-6 Access 00:00:00 00:00:00 MIRTA 22-4926-a4f 3q8-84lt-2 Health f-16523796n 67a-3d9ddd alexander xty577 2016-07-24 2016-07-24 Outpatient [facility] 107 [id number] Access 00:00:00 00:00:00 H, PROVIDER Will garcia 2016-07-24 2016-07-24 Outpatient [facility] 3xm9i2g1-4l a83306o0-7 Access 00:00:00 00:00:00 H, PROVIDER april7fw4-00l 046-4f 02-a Health 0-iy1iov698 1k3-64as41 0f4 062d54 2016-07-24 2016-07-24 Outpatient ISAURA, [facility] prg085rw-9u d2 940i18-z Access 00:00:00 00:00:00 CHRISTINA 22-4926-a4f b9o-76kp- b Health f-85135995o z9i-941804 alexander c19d1a 2016-07-24 2016-07-24 Outpatient JOSE FRANCISCO, [facility] tpz718zd-3e e3f h4g88-v Access 00:00:00 00:00:00 NAIF 22-4926-a4f j0t-20i4- 8 Health f-97171030d bba-be69db alexander 0b9f49 2016-07-17 2016-07-17 Outpatient ENRIQUE, [facility] jbn460ut-9m 163 w50gk-5 Access 00:00:00 00:00:00 CAROLYN 22-4926-a4f r54-4406-r Health f-97054752t ec6-9ef36c alexander 426384 0538-04-20 2016-07-16 Outpatient [facility] 107 [id number] Access 00:00:00 00:00:00 H, PROVIDER Will garcia 2016-07-16 2016-07-16 Outpatient [facility] 3ai0k0b7-9c 038d59gn-3 Access 00:00:00 00:00:00 H, PROVIDER e2-4gb6-02c f7c-42 66-9 Health 0-ls1zkf368 762-340d90 0f4 1876fa 2016-07-16 2016-07-16 Outpatient IRIZARRY, [facility] 29f6782w-07 692 7c5c4-e Access 00:00:00 00:00:00 KATELINE 45-9l9e-v6c 17f-442e- a Health d-t2g003675 ddf-6t8924 354 e90b6a 2016-07-16 2016-07-16 Outpatient CONTRERAS, [facility] jcw473kn-9c c 0387fac-c Access 00:00:00 00:00:00 MIRTA 22-4926-a4f 06b-4903-a Health f-80966650b n72-3a9q45 alexander l33199 2016-07-16 2016-07-16 Outpatient CHARLY BARDALES [facility] 17q6049i-35 79lor450-g Access 00:00:00 00:00:00 45-4o2y-z3h 049-4b28-8 Health d-z4b207806 36f-84m493 354 vdg242 2016-07-16 2016-07-16 Outpatient ENRIQUE, [facility] nsy494xx-7s 2cb 637h2-b Access 00:00:00 00:00:00 GAYTARI 22-4926-a4f ec3-43e2-b Health f-44948555i 989-acffbb alexander acf4d2 2016-07-14 2016-07-14 Outpatient [facility] [id number] Access 00:00:00 00:00:00 H, PROVIDER Will garcia 2016-07-14 2016-07-14 Outpatient [facility] 1gw8s7i8-4c 556e0j3j-7 Access 00:00:00 00:00:00 H, PROVIDER april9ye1-54t 52f-4d 8d-9 Health 0-er7gfp999 596-929d1e 0f4 5cbb75 2016-07-14 2016-07-14 Outpatient DIANE, [facility] xaz877ii-4m f d996249-9 Access 00:00:00 00:00:00 MIRTA 22-4926-a4f 486-43ef-b Health f-21987760g 58e-c764a4 alexander 4a23b4 2016-07-14 2016-07-14 Outpatient TIMA, [facility] frj910uk-1d b38 6pl1p-6 Access 00:00:00 00:00:00 OSMAN 22-4926-a4f 7t1-5q93-c Health f-36436479k 532-cac9af alexander bf28b2 2016-07-06 2016-07-06 Outpatient [facility] [id number] Access 00:00:00 00:00:00 H, PROVIDER Will garcia 2016-07-06 2016-07-06 Outpatient [facility] [id number]-k Access 00:00:00 00:00:00 H, PROVIDER valerie9wn5-94v 7e3-46 ad-b Health 0-ig2ifx677 60a-45263j 0f4 022741 0958-04-10 2016-07-06 Outpatient TIMA, [facility] pxt150zn-1r ca6 0064f-c Access 00:00:00 00:00:00 OSMAN 22-4926-a4f 308-477e-b Health f-[id number] 5d2-z3n71d alexander befcac 2016-07-06 2016-07-06 Outpatient CONTRERAS, [facility] sqw990ri-5l a [id number]-4 Access 00:00:00 00:00:00 MIRTA 22-4926-a4f v54-2r25-0 Health f-72572771s a7z-yxe62u alexander h3496h 2016-07-01 2016-07-01 Outpatient [facility] [id number] Access 00:00:00 00:00:00 H, PROVIDER Will garcia 2016-07-01 2016-07-01 Outpatient [facility] [id number] [id number] Access 00:00:00 00:00:00 H, PROVIDER e2-3ww5-64f fbd-41 57-9 Health 0-si6ita767 3c8-74363i 0f4 13dfc5 2016-07-01 2016-07-01 Outpatient CHARLY BARDALES [facility] [id number] Access 00:00:00 00:00:00 45-3p1q-x8v 8ef-44fa-9 Health d-n0v352325 145-03bbe1 354 734d1e 2016-07-01 2016-07-01 Outpatient IRIZARRY, [facility] [id number] 9f6 1438d-f Access 00:00:00 00:00:00 KATELINE 45-6u6p-o2f b20-7iof- 9 Health d-j3r189111 5e5-9wj2z1 354 [id number] 3931-04-02 2016-06-28 Outpatient TIMA, [facility] pvk683oy-2d ba4 b9sa8-6 Access 00:00:00 00:00:00 OSMAN 22-4926-a4f fb6-4103-8 Health f-37439901y a50-8586r0 alexander 4m933h 2016-06-25 2016-06-25 Outpatient [facility] [id number] Access 00:00:00 00:00:00 H, PROVIDER Will garcia 2016-06-25 2016-06-25 Outpatient [facility] 2zv1f8x2-8s [id number] Access 00:00:00 00:00:00 H, PROVIDER gabby-5ey1-24d 98e-47 c8-a Health 0-tl7kxv497 h9c-s375m0 0f4 4f1aaa 2016-06-25 2016-06-25 Outpatient TIMA, [facility] apa433bn-4s 9e0 8es1t-0 Access 00:00:00 00:00:00 OSMAN 22-4926-a4f 533-4298-a Health f-05144469r 6l9-k2l8qu alexander 050040 5335-03-30 2016-06-25 Outpatient DELAROSA, [facility] [id number] 5d 9ima5m-7 Access 00:00:00 00:00:00 CHRISTINA 45-2v5b-b6f x76-7522- a Health d-v5t367043 74d-bc9f79 354 [id number] 2016-06-25 2016-06-25 Outpatient OMORI, [facility] [id number] 643 [id number] Access 00:00:00 00:00:00 NAIF 45-8x3q-w8r 4z6-96e5- b Health d-a8e516905 def-275d83 354 bj956c 2016-06-25 2016-06-25 Outpatient CONTRERAS, [facility] rmn278sh-7r f [id number] Access 00:00:00 00:00:00 MIRTA 22-4926-a4f l9q-96gf-b Health f-[id number] 4d2-070kl4 alexander bc1d2c 2016-06-08 2016-06-08 Outpatient [facility] [id number] Access 00:00:00 00:00:00 H, PROVIDER Will garcia 2016-06-08 2016-06-08 Outpatient [facility] 8rj0o7s8-1w [id number] Access 00:00:00 00:00:00 H, PROVIDER e2-5qf8-43u d53-4b 39-b Health 0-yf3ynm864 49d-bb0c97 0f4 a273a3 2016-06-08 2016-06-08 Outpatient CHARLY BARDALES [facility] [id number] Access 00:00:00 00:00:00 45-3u1y-e2w 84c-42c0-9 Health d-f1k153743 644-e9c44e 354 a4d7b9 2016-06-08 2016-06-08 Outpatient IRIZARRY, [facility] [id number]-02 cdb 76866-j Access 00:00:00 00:00:00 SUKUMAR 45-1e1n-z1g 41d-4957- b Health d-f1w015676 5g8-v7mpuf 354 38a8c2 2016-05-19 2016-05-19 Outpatient [facility] [id number] Access 00:00:00 00:00:00 H, PROVIDER Will garcia 2016-05-19 2016-05-19 Outpatient [facility] 6rg4o5m6-7f 9f4ez0t1-6 Access 00:00:00 00:00:00 H, PROVIDER e2-3rq8-52z tonya-4c 95-a Health 0-bi7ubk587 v5r-l5we8x 0f4 0e2daa 2016-05-19 2016-05-19 Outpatient TIMA, [facility] 3yr7m0u7-6e fc5 0f20i-4 Access 00:00:00 00:00:00 OSMAN e2-4vm5-80q ad3-40d5-b Health 0-ts9eue787 bc9-a48b2d 0f4 45d381 2016-05-19 2016-05-19 Outpatient DIANE, [facility] 9zd3m1l6-6h 8 af806u1-3 Access 00:00:00 00:00:00 MIRTA e2-1vr7-17n 7i6-8174-b Health 0-mu7fsj438 g73-t2b282 0f4 39beb0 2016-05-15 2016-05-15 Outpatient [facility] [id number] Access 00:00:00 00:00:00 H, PROVIDER Will garcia 2016-05-15 2016-05-15 Outpatient [facility] 1ka4e0u2-1z j64zk75i-u Access 00:00:00 00:00:00 H, PROVIDER e2-5bk7-94z bbe-4f 60-b Health 0-rv7ocs476 941-41ae95 0f4 iu6528 2016-05-15 2016-05-15 Outpatient CONTRERAS, [facility] [id number] f e8t6u55-0 Access 00:00:00 00:00:00 MIRTA 45-5k1i-l9x 0d0-1695-5 Health d-s8b459699 311-s0q794 354 835fae 2016-05-15 2016-05-15 Outpatient OMORI, [facility] [id number]-48 2b7 46i67-7 Access 00:00:00 00:00:00 NAIF 45-1j6v-e4l 373-4ac8- b Health d-a2i830406 3h3-l084qq 354 om5848 2016-05-15 2016-05-15 Outpatient DELAROSA, [facility] [id number]-79 d3 8kjce7-7 Access 00:00:00 00:00:00 CHRISTINA 45-4u5h-n5x m24-2366- a Health d-w6z495420 [facility] 354 69q405 2016-05-15 2016-05-15 Outpatient IRIZARRY, [facility] [id number]-71 e10 h5042-4 Access 00:00:00 00:00:00 KATELINE 45-1q9b-q4v j3g-0g3u- a Health d-r1o900256 358-d132b6 354 e444e3 2016-05-11 2016-05-11 Outpatient [facility] [id number] Access 00:00:00 00:00:00 H, PROVIDER Will garcia 2016-05-11 2016-05-11 Outpatient [facility] 3bb9k1m5-8b [id number]-8 Access 00:00:00 00:00:00 H, PROVIDER e2-5zk5-86m 986-4e 16-9 Health 0-tl9bhd308 2d3-82f469 0f4 960933 9527-02-13 2016-05-11 Outpatient FOREIGN, [facility] [id number] Access 00:00:00 00:00:00 FRANKLIN 45-1a7v-j3x ee0-4498-a Health d-o5f483035 cb7-627bcc 354 62c67e 2016-05-11 2016-05-11 Outpatient DIANE, [facility] [id number]-59 f 1th6ofr-b Access 00:00:00 00:00:00 MIRTA 45-5f2o-e9i 36e-4988-b [facility]i091180 [facility] 727e3d 2016-05-08 2016-05-08 Outpatient [facility] [id number] Access 00:00:00 00:00:00 H, PROVIDER Will garcia 2016-05-08 2016-05-08 Outpatient [facility] 2lh6t4j1-9f [id number] Access 00:00:00 00:00:00 H, PROVIDER e2-0pl1-07g e1f-48 2e-8 Health 0-pd1lox945 2db-ipj328 0f4 bc16c2 2016-05-08 2016-05-08 Outpatient SHELBY, [facility] 3hl8b6c0-5n 18c e5865-m Access 00:00:00 00:00:00 SAMANTHA e2-2yw3-39y 27d-42df- a Health 0-kt9sxj755 bb7-59541y 0f4 84d261 2016-05-08 2016-05-08 Outpatient CONTRERAS, [facility] 8ob6d2y1-9a 3 d681k7b-6 Access 00:00:00 00:00:00 MIRTA e2-9sr2-24i 353-45e9-a Health 0-ku1urk242 be5-c18712 0f4 8412be 2016-05-05 2016-05-05 Outpatient SHELBY, [facility] 1qy7w2o1-3p 773 u2v6r-0 Access 00:00:00 00:00:00 SAMANTHA e2-0el2-85k 09b-4a43- a Health 0-uy4fuy423 83f-02ffd4 0f4 8eed89 2016-05-04 2016-05-04 Outpatient [facility] [id number] Access 00:00:00 00:00:00 H, PROVIDER Will garcia 2016-05-04 2016-05-04 Outpatient [facility] 4qm5a8x2-3h 58nidmv3-0 Access 00:00:00 00:00:00 H, PROVIDER e2-3la3-28b 964-4e b0-8 Health 0-cg5jbg745 fd5-e283fd 0f4 1cba2b 2016-05-04 2016-05-04 Outpatient SHELBY, [facility] 3vm9q0q4-7p c7e 4g522-6 Access 00:00:00 00:00:00 SAMANTHA e2-3bd9-33b 677-4bd7- b Health 0-pc1izp888 14f-f6fe70 0f4 87341h 2016-05-04 2016-05-04 Outpatient CONTRERAS, [facility] 8no9h0v3-4q d o20040z-c Access 00:00:00 00:00:00 MIRTA e2-7um2-59t 294-4fb9-a Health 0-um5lfn569 51f-f628b0 0f4 d8636z 2016-04-27 2016-04-27 Outpatient [facility] [id number] Access 00:00:00 00:00:00 H, PROVIDER Will garcia 2016-04-27 2016-04-27 Outpatient [facility] 5hv7u7j8-5s c293go04-9 Access 00:00:00 00:00:00 H, PROVIDER e2-0bs0-79m 0c7-4f f1-8 Health 0-da6oge491 de9-3790eb 0f4 4239d8 2016-04-27 2016-04-27 Outpatient CONTRERAS, [facility] 5ue7g3r4-9r 3 9qst073-6 Access 00:00:00 00:00:00 MIRTA e2-3df8-20p 1r7-1u55-g Health 0-hr6pqo376 7d2-i52762 0f4 5c897p 2016-04-27 2016-04-27 Outpatient DESTINY, [facility] 9dq0m4u6-1c edf 7f9q8-d Access 00:00:00 00:00:00 MELVA e2-2go9-61v 4fb-4099-9 Health 0-ko3dyq916 ca8-42b5cf 0f4 047ded 2016-04-24 2016-04-24 Outpatient [facility] 107 [id number] Access 00:00:00 00:00:00 H, PROVIDER Will garcia 2016-04-24 2016-04-24 Outpatient [facility] 3tz6v9f4-5v vt0pwk9m-d Access 00:00:00 00:00:00 H, PROVIDER e2-0cj3-01e 5aa-41 ee-8 Health 0-fr9rce233 bfc-d71191 0f4 y2693t 2016-04-24 2016-04-24 Outpatient FOREIGN, [facility] 94b5224e-27 q22vb815-2 Access 00:00:00 00:00:00 FRANKLIN 45-3g6p-n8r 4c8-1o27-4 Health d-f7j874067 fee-9wj208 354 f7e46e 2016-04-24 2016-04-24 Outpatient ISAURA, [facility] 11a5975f-64 47 9g73h6-6 Access 00:00:00 00:00:00 CHRISTINA 45-8b3i-p1t 287-4cce- 9 Health d-y7t151514 3g9-484b85 354 0c8ebc 2016-04-24 2016-04-24 Outpatient SHELBY, [facility] 8fc7d4c0-1u 978 0m627-p Access 00:00:00 00:00:00 SAMANTHA e2-0mq1-85v 3ec-4aa4- 8 Health 0-yv4dxn215 s43-43gdn1 0f4 cfdb01 2016-04-24 2016-04-24 Outpatient DIANE, [facility] 0qn2v5l6-9y 3 w8an1g6-7 Access 00:00:00 00:00:00 MIRTA e2-0pc4-63f 39f-490c-b Health 0-nn8eqx728 8ce-a94b3d 0f4 611fdf 2016-04-24 2016-04-24 Outpatient DIANE, [facility] 68e8203w-72 2 6823237-g Access 00:00:00 00:00:00 MIRTA 45-0f7u-j5y 86a-4439-a Health d-e1l532772 g1l-61j0bb 354 218d45 2016-04-24 2016-04-24 Outpatient IRIZARRY, [facility] 41b9950a-83 fc7 8687c-4 Access 00:00:00 00:00:00 SUKUMAR 45-9q0u-z8b u9g-5z00- a Health d-m7d617732 y4t-9ad652 354 9f3b30 2016-04-24 2016-04-24 Outpatient OMORI, [facility] 73p9280y-18 d38 w9x93-9 Access 00:00:00 00:00:00 NAIF 45-5u9e-t4r 768-4bfb- b Health d-c0t526586 e1v-70d4p2 354 4dd6fd 2016-04-23 2016-04-23 Outpatient [facility] 107 [id number] Access 00:00:00 00:00:00 H, PROVIDER Will garcia 2016-04-23 2016-04-23 Outpatient [facility] 1dx7x9v3-0k a0ru7y72-p Access 00:00:00 00:00:00 H, PROVIDER e2-9cm1-48i be8-4b 21-9 Health 0-vi7get776 3dc-5f1e84 0f4 22d77d 2016-04-23 2016-04-23 Outpatient DIANE, [facility] 02d2147n-12 6 s28m22a-c Access 00:00:00 00:00:00 MIRTA 45-2x4z-c0k 994-45ef-b Health d-c7l347499 4x3-y1829j 354 51ffb4 2016-04-23 2016-04-23 Outpatient FOREIGN, [facility] 78j5961j-13 63u214nl-p Access 00:00:00 00:00:00 FRANKLIN 45-2r3o-q9k eaf-4e51-9 Health d-i2b230433 8j4-g8j301 354 7999a2 2016-04-20 2016-04-20 Outpatient [facility] 107 [id number] Access 00:00:00 00:00:00 H, PROVIDER Will garcia 2016-04-20 2016-04-20 Outpatient [facility] 1sx8f1n2-3o 1501156l-3 Access 00:00:00 00:00:00 H, PROVIDER april1up3-85x a9b-45 15-9 Health 0-dz3pia420 6l1-565683 0f4 551490 6655-01-23 2016-04-20 Outpatient DESTINY, [facility] 5qj2k5f1-7a 407 45r9r-k Access 00:00:00 00:00:00 MELVA e2-7sj4-61s 067-4720-a Health 0-it6txq075 679-47bd8d 0f4 636a60 2016-04-20 2016-04-20 Outpatient DIANE, [facility] 3bs9m7r8-8u 2 49xdm4m-b Access 00:00:00 00:00:00 MIRTA e2-3ay4-85w 373-4fb8-8 Health 0-cu9mpt420 5h4-qs6818 0f4 3b9fb0 2016-04-17 2016-04-17 Outpatient [facility] 107 [id number] Access 00:00:00 00:00:00 H, PROVIDER Will garcia 2016-04-17 2016-04-17 Outpatient [facility] 1ve6f1v8-8r 1u594a5m-f Access 00:00:00 00:00:00 H, PROVIDER april3al7-15g 7cd-42 99-a Health 0-rd6evv954 j93-g5k5i0 0f4 685c34 2016-04-07 2016-04-07 Outpatient [facility] 107 [id number] Access 00:00:00 00:00:00 H, PROVIDER Will garcia 2016-04-07 2016-04-07 Outpatient [facility] 7tp3t6y8-6l 84w0wjb8-i Access 00:00:00 00:00:00 H, PROVIDER april7io6-20j f6e-4e 34-8 Health 0-rv2yul455 026-e65fd2 0f4 3f7d68 2016-04-07 2016-04-07 Outpatient TIMA, [facility] sgj079wm-8k 561 c2g70-z Access 00:00:00 00:00:00 OSMAN 22-4926-a4f b8l-8hk5-o Health f-49108164w 89b-711bf4 alexander tc365r 2016-04-07 2016-04-07 Outpatient TIMA, [facility] 1ah4m5i8-5b 515 ffab0-4 Access 00:00:00 00:00:00 OSMAN pierre-2wy4-89j 605-4ff2-a Health 0-ez6ttc704 18f-76x200 0f4 130b3b 2016-04-07 2016-04-07 Outpatient CONTRERAS, [facility] yts537ud-8k 8 6632o25-v Access 00:00:00 00:00:00 MIRTA 22-4926-a4f 57e-49df-a Health f-62566194b 23e-006f72 alexander 1h231g 2016-04-06 2016-04-06 Outpatient [facility] 107 [id number] Access 00:00:00 00:00:00 H, PROVIDER Will garcia 2016-04-06 2016-04-06 Outpatient [facility] 7yf2w2p1-9x 4180r166-w Access 00:00:00 00:00:00 H, PROVIDER april8qs3-53o 933-4f 57-9 Health 0-im8ftk696 cdf-f04f62 0f4 17n061 2016-04-06 2016-04-06 Outpatient TIMA, [facility] 4ki3w7p4-8e c72 y48h6-0 Access 00:00:00 00:00:00 OSMAN pierre-2rs5-54g i9f-1w52-y Health 0-fg8yfe368 w11-48795z 0f4 ad40b7 2016-04-06 2016-04-06 Outpatient DIANE, [facility] 2ul1z4r3-7p 3 nm271n3-k Access 00:00:00 00:00:00 MIRTA e2-5xx3-61l eb2-4dd6-b Health 0-cr7wri886 9fd-dc32d8 0f4 94h649 2016-03-26 2016-03-26 Outpatient [facility] 107 [id number] Access 00:00:00 00:00:00 H, PROVIDER Will garcia 2016-03-26 2016-03-26 Outpatient [facility] 7fl0c8s7-3b 2y50v2s8-f Access 00:00:00 00:00:00 H, PROVIDER e2-1ag5-06s f3d-41 a6-a Health 0-sh7mrg848 ba9-6872c4 0f4 945072 1175-12-29 2016-03-26 Outpatient OMORI, [facility] wyd756jn-0y 8bc 2xyr1-0 Access 00:00:00 00:00:00 NAIF 22-4926-a4f 598-4848- a Health f-40140475h 098-293a08 alexander zu862n 2016-03-26 2016-03-26 Outpatient DIANE, [facility] iee980bd-9q 1 rm75w2k-4 Access 00:00:00 00:00:00 MIRTA 22-4926-a4f 6ee-4ff7-b Health f-17105297v 583-72eac5 alexander 326a7e 2016-03-26 2016-03-26 Outpatient IRIZARRY, [facility] hjy293ok-2s 576 1g6dr-1 Access 00:00:00 00:00:00 KATELINE 22-4926-a4f 7i9-8k99- 8 Health f-33985082u 9cc-9e5938 alexander 0b4fc0 2016-03-25 2016-03-25 Outpatient [facility] 107 [id number] Access 00:00:00 00:00:00 H, PROVIDER Will garcia 2016-03-25 2016-03-25 Outpatient [facility] 1ya5d7i2-5n 39w65u91-l Access 00:00:00 00:00:00 H, PROVIDER e2-2ji5-36a dd6-45 84-8 Health 0-qo5ore995 5e8-c24hgg 0f4 gf761l 2016-03-25 2016-03-25 Outpatient TIMA, [facility] abc450wt-0n 560 15e16-4 Access 00:00:00 00:00:00 OSMAN 22-4926-a4f 065-44df-b Health f-88850950u 819-2699d1 alexander 8f5a2f 2016-03-25 2016-03-25 Outpatient CONTRERAS, [facility] kih458rv-2o 9 48iz2g9-j Access 00:00:00 00:00:00 MIRTA 22-4926-a4f g73-8n9a-8 Health f-81514361p 48f-8ad8b4 alexander b50eed 2016-03-06 2016-03-06 Outpatient [facility] 107 [id number] Access 00:00:00 00:00:00 H, PROVIDER Will garcia 2016-03-06 2016-03-06 Outpatient [facility] 8uo0i6y4-9b 1c1n89l0-8 Access 00:00:00 00:00:00 H, PROVIDER e2-8sw3-97b f9e-49 00-9 Health 0-ge6bla675 84c-3t7313 0f4 81c373 2016-03-06 2016-03-06 Outpatient DELAROSA, [facility] yvn388ry-8b da 80fadd-2 Access 00:00:00 00:00:00 CHRISTINA 22-4926-a4f 9o8-7s1k- a Health f-71139246e t13-021t52 alexander 4c9b58 2016-03-06 2016-03-06 Outpatient DIANE, [facility] ovy673pw-3y 3 2z5zllj-z Access 00:00:00 00:00:00 MIRTA 22-4926-a4f 95d-4894-8 Health f-00532827l 41e-08a2d9 alexander 2085f3 2016-03-03 2016-03-03 Outpatient TIMA, [facility] ror167nm-6y 11d f1164-4 Access 00:00:00 00:00:00 OSMAN Estrella-4926-a4f 1fb-4f0a-a Health f-23135975r 780-66h998 alexander 2abc72 2016-02-28 2016-02-28 Outpatient [facility] [id number] Access 00:00:00 00:00:00 H, PROVIDER Will garcia 2016-02-28 2016-02-28 Outpatient [facility] 2wg5x0r6-4o u63pc2t4-7 Access 00:00:00 00:00:00 H, PROVIDER e2-2qm8-09n 122-40 d1-a Health 0-vc6xos785 cd8-8e0dd4 0f4 c9ee35 2016-02-28 2016-02-28 Outpatient CONTRERAS, [facility] nvc217kx-3a 3 311dm6z-9 Access 00:00:00 00:00:00 MIRTA Bravo4926-a4f af1-4c49-8 Health f-76091851g 251-7271d4 alexander 5a4e2f 2016-02-28 2016-02-28 Outpatient TIMA, [facility] fuf663jg-5s 30e 0wqc6-6 Access 00:00:00 00:00:00 OSMAN 22-4926-a4f ca3-4e7f-9 Health f-86690103b 3y4-a865t6 alexander 5fb9b9 2016-02-25 2016-02-25 Outpatient DESTINY, [facility] 2za4x4f8-9j 882 p1cg1-r Access 00:00:00 00:00:00 MELVA e2-8rk0-95w 5q4-9yq1-6 Health 0-en7wwr836 398-t83682 0f4 be84b6 2016-02-24 2016-02-24 Outpatient DESTINY, [facility] 1ai4w4q1-6g 970 6112d-8 Access 00:00:00 00:00:00 MELVA e2-8to5-21e 522-4d0a-8 Health 0-iw9oot102 3ed-40eaf8 0f4 0f12d2 2016-02-18 2016-02-18 Outpatient [facility] 107 [id number] Access 00:00:00 00:00:00 H, PROVIDER Will garcia 2016-02-18 2016-02-18 Outpatient [facility] 8ex2p9c0-7u t7de28kd-3 Access 00:00:00 00:00:00 H, PROVIDER e2-4km9-87j 82f-43 1a-b Health 0-vx0dfs770 b7n-27687z 0f4 5abef2 2016-02-18 2016-02-18 Outpatient DESTINY, [facility] 1dd6m1k1-1h 2fa 47s73-7 Access 00:00:00 00:00:00 MELVA e2-6uv4-51g t5x-9i7s-h Health 0-fe7tdh761 279-b1d14b 0f4 e2f42d 2016-02-18 2016-02-18 Outpatient DIANE, [facility] 4yt8r1l9-2n 8 0f86s56-2 Access 00:00:00 00:00:00 MIRTA e2-0hd0-50k 3k3-1671-d Health 0-aa4nvq649 alexander-e606c4 0f4 149c44 2016-02-10 2016-02-10 Outpatient TIMA, [facility] 7kv2a0t7-3o 0be 5gce6-x Access 00:00:00 00:00:00 OSMAN e2-9qi6-59i 0eb-4eb1-a Health 0-ia1tqm649 54f-066866 0f4 64ba33 2016-02-06 2016-02-06 Outpatient ALAM, [facility] [id number] [place] [address] 10:32:12 15:36:05 NAIMA Omer Medicin e 2016-01-30 2016-01-30 Outpatient TIMA, [facility] wpc396js-4v 003 67o59-5 Access 00:00:00 00:00:00 OSMAN 22-4926-a4f g98-8q12-j Health f-94305890u 30e-776d1f alexander b29d1e 2016-01-28 2016-01-28 Outpatient [facility] 107 [id number] Access 00:00:00 00:00:00 H, PROVIDER Will garcia 2016-01-28 2016-01-28 Outpatient [facility] 7jb5y5q1-5k 34z57w89-1 Access 00:00:00 00:00:00 H, PROVIDER e2-4ir9-65x d0d-4c 90-b Health 0-gj2iow568 cac-3lb725 0f4 21fba1 2016-01-28 2016-01-28 Outpatient DESTINY, [facility] 6ww8m8u0-7i 2ec j88ab-2 Access 00:00:00 00:00:00 MELVA e2-0jp5-38e o47-0ip1-2 Health 0-yk8xwk740 9x9-n123ba 0f4 5909cc 2016-01-28 2016-01-28 Outpatient TIMA, [facility] 6kc5a4u5-7h af0 6v6h8-d Access 00:00:00 00:00:00 OSMAN e2-2gm6-56k 855-4c09-9 Health 0-fj5qth544 2e2-ks4j25 0f4 dd65fd 2016-01-28 2016-01-28 Outpatient DIANE, [facility] 5jx7h2t3-8g 2 hd64092-3 Access 00:00:00 00:00:00 MIRTA e2-3rr5-64c 5v8-3a44-8 Health 0-md4hab787 k55-z27r96 0f4 226cf1 2016-01-27 2016-01-27 Outpatient [facility] 107 [id number] Access 00:00:00 00:00:00 H, PROVIDER Will garcia 2016-01-27 2016-01-27 Outpatient [facility] 2ru8i2x2-5j 577e4br4-1 Access 00:00:00 00:00:00 H, PROVIDER e2-5cx2-50u 6ce-4b 28-b Health 0-lv5yvs286 9m7-69o420 0f4 311f8d 2016-01-27 2016-01-27 Outpatient TIMA, [facility] gvw592ft-0l 169 n0f50-m Access 00:00:00 00:00:00 OSMAN 22-4926-a4f o96-95mk-s Health f-60635857p 6ce-336316 alexander 311d01 2016-01-21 2016-01-21 Outpatient [facility] 107 [id number] Access 00:00:00 00:00:00 H, PROVIDER Will garcia 2016-01-21 2016-01-21 Outpatient [facility] 6bu7i0w1-8c i8355884-t Access 00:00:00 00:00:00 H, PROVIDER april1qr0-34s be4-45 98-a Health 0-ym8fku601 79f-33e35e 0f4 b6a3ba 2016-01-21 2016-01-21 Outpatient JONAS, [facility] qrc353zt-0k b0 cuw000-c Access 00:00:00 00:00:00 MAEVE -4926-a4f 971-46ae-b Health f-10770736h 5db-ceb82a alexander 06ca45 2016-01-21 2016-01-21 Outpatient OMORI, [facility] nfm085qq-2b c83 x63i7-p Access 00:00:00 00:00:00 NAIF 22-4926-a4f 9r5-9h6f- b Health f-46812006b 44d-88f26d alexander g9g035 2015-10-02 2015-10-02 Outpatient OMORI, [facility] lih654ez-4u c00 513aa-5 Access 00:00:00 00:00:00 NAIF Sameer-4926-a4f 809-4330- b Health f-22245631n 3x1-erp904 alexander 9ebe0b 2015-10-01 2015-10-01 Outpatient [facility] 107 [id number] Access 00:00:00 00:00:00 H, PROVIDER Will garcia 2015-10-01 2015-10-01 Outpatient [facility] 8kf3j0l6-7y 54l67662-4 Access 00:00:00 00:00:00 H, PROVIDER gabby-1rv4-87b ed0-46 e6-9 Health 0-pi6vkx917 57e-4efa05 0f4 dzn579 2015-10-01 2015-10-01 Outpatient OMORI, [facility] mwm369rn-1t 83d jf5y9-v Access 00:00:00 00:00:00 NAIF Bravo4926-a4f 7v5-63h9- 9 Health f-70834098k t19-ue7780 alexander pq306c 2015-10-01 2015-10-01 Outpatient DIANE, [facility] drj603jx-0v 4 odcr32j-9 Access 00:00:00 00:00:00 MIRTA Bravo4926-a4f 9x1-5zd4-b Health f-45128243k f46-0s06u1 alexander c704de 2015-09-26 2015-09-26 Outpatient [facility] 107 [id number] Access 00:00:00 00:00:00 H, PROVIDER Will garcia 2015-09-26 2015-09-26 Outpatient [facility] 6ev0n1b4-7c qn290947-7 Access 00:00:00 00:00:00 H, PROVIDER april0vr7-79q 8ad-4b 20-9 [facility] 0-na7ejh063 7s6-u97f1d 0f4 1f3c6d 2015-09-26 2015-09-26 Outpatient DIANE, [facility] wab796ly-4v 6 7l5s9fz-0 Access 00:00:00 00:00:00 MIRTA Estrella-4926-a4f 121-4c1d-b Health f-55444948g d9v-0l7k10 alexander 71t690 2015-09-26 2015-09-26 Outpatient JOSE FRANCISCO, [facility] fnf117to-3a b24 8z612-0 Access 00:00:00 00:00:00 NAIF Estrella-4926-a4f 457-48de- a Health f-55610610v n08-e84o5x alexander 0v682u 2015-09-12 2015-09-12 Outpatient [facility] 107 [id number] Access 00:00:00 00:00:00 H, PROVIDER Will garcia 2015-09-12 2015-09-12 Outpatient [facility] 2rs6r0n6-2z m1426h6t-2 Access 00:00:00 00:00:00 H, PROVIDER tatyana5ag0-00a 126-41 a3-b Health 0-xj6vxk206 625-698497 0f4 48d9d2 2015-08-21 2015-08-21 Outpatient [facility] 107 [id number] Access 00:00:00 00:00:00 H, PROVIDER Will garcia 2015-08-21 2015-08-21 Outpatient [facility] 2ok0b7u3-5k 23o5336v-p Access 00:00:00 00:00:00 H, PROVIDER tatyana5fj5-72e f2e-44 8f-b Health 0-oq5jxl606 d4q-08496b 0f4 e6de39 2015-05-22 2015-05-22 Outpatient [facility] 107 [id number] Access 00:00:00 00:00:00 H, PROVIDER Will garcia 2015-05-22 2015-05-22 Outpatient [facility] 1tq1v6k8-1p [id number] Access 00:00:00 00:00:00 H, PROVIDER tatyana7rt1-62b 2c0-43 14-b Health 0-ci3hna297 73a-g08187 0f4 1acb06 2015-05-21 2015-05-21 Outpatient [facility] 107 [id number] Access 00:00:00 00:00:00 H, PROVIDER Will garcia 2015-05-21 2015-05-21 Outpatient [facility] 1np9o0r7-6l 01u77b22-5 Access 00:00:00 00:00:00 H, PROVIDER tatyana9ay4-94r 9f9-45 a3-8 Health 0-ge4nke967 5bd-493e87 0f4 44i763 2015-05-03 2015-05-03 Outpatient HERNAE, [facility] 2lz1d2r2-3x 56 38439q-6 Access 15:36:00 15:36:00 MAEVE valerie3ju1-91y q0s-1xq3-f Health 0-cx2jmx111 4y1-807qt6 0f4 042231 2945-02-05 2015-05-03 Outpatient [facility] 107 [id number] Access 00:00:00 00:00:00 H, PROVIDER Will garcia 2015-05-03 2015-05-03 Outpatient [facility] 6ec8j8h7-9j [id number]-1 Access 00:00:00 00:00:00 H, PROVIDER april3vc8-32v da3-40 14-8 Health 0-ha6iaf555 [id number] 0f4 [id number] 2015-05-03 2015-05-03 [facility] [id number] Access 00:00:00 00:00:00 MIRTA gabby-3ag7-40m c01-34v8-1 Health 0-yi7qve341 s8m-4gx25o 0f4 [id number] 2015-03-20 2015-03-20 Outpatient [facility] [id number] Access 00:00:00 00:00:00 H, PROVIDER Will garcia 2015-03-20 2015-03-20 Outpatient [facility] [id number] Access 00:00:00 00:00:00 H, PROVIDER valerie8bd5-90j da0-41 96-8 Health 0-ty6ztp856 [id number]-54ee37 0f4 [id number] 2015-03-15 2015-03-15 Outpatient [facility] [id number] Access 00:00:00 00:00:00 H, PROVIDER Will garcia 2015-03-15 2015-03-15 Outpatient [facility] [id number] Access 00:00:00 00:00:00 H, PROVIDER valerie7ga5-60s 7a2-4a a9-b Health 0-uy4nyw998 [id number] 0f4 [id number] 2015-03-06 2015-03-06 Outpatient [facility] [id number] Access 00:00:00 00:00:00 H, PROVIDER Will garcia 2015-03-06 2015-03-06 Outpatient [facility] [id number] Access 00:00:00 00:00:00 H, PROVIDER valerie6uu7-22s fdb-4d 58-a Health 0-jg7yxa143 [id number]-86cn65 0f4 [id number] 2015-02-19 2015-02-19 Outpatient [facility] [id number] Access 00:00:00 00:00:00 H, PROVIDER Will garcia 2015-02-19 2015-02-19 Outpatient [facility] [id number] Access 00:00:00 00:00:00 H, PROVIDER tatyana4zl7-40m 127-4b 58-a Health 0-[id number] [id number]-[id number] 0f4 [id number] 2015-02-18 2015-02-18 Outpatient [facility] [id number] Access 00:00:00 00:00:00 H, PROVIDER Will garcia 2015-02-18 2015-02-18 Outpatient [facility] [id number] Access 00:00:00 00:00:00 H, PROVIDER tatyana9wf2-60s d47-48 5c-8 Health 0-ub3ffq629 5cb-5cface 0f4 [id number] 2015-02-12 2015-02-12 Outpatient [facility] [id number] Access 00:00:00 00:00:00 H, PROVIDER Will garcia 2015-02-12 2015-02-12 Outpatient [facility] [id number] Access 00:00:00 00:00:00 H, PROVIDER tatyana7qa5-13a 279-4f 28-b Health 0-id5xyc297 [id number] 0f4 [id number] 2015-02-11 2015-02-11 Outpatient [facility] [id number] Access 00:00:00 00:00:00 H, PROVIDER Will garcia 2015-02-11 2015-02-11 Outpatient [facility] [id number] Access 00:00:00 00:00:00 H, PROVIDER valerie1kr5-15d 925-41 78-b Health 0-qn0ayr541 [id number] 0f4 [id number] 2015-02-06 2015-02-06 Outpatient [facility] [id number] Access 00:00:00 00:00:00 H, PROVIDER Will garcia 2015-02-06 2015-02-06 Outpatient [facility] [id number] Access 00:00:00 00:00:00 H, PROVIDER valerie5mg5-26m 2a8-49 15-a Health 0-sl6pym579 [id number] 0f4 [id number] 2015-01-24 2015-01-24 Outpatient [facility] [id number] Access 00:00:00 00:00:00 H, PROVIDER Will garcia 2015-01-24 2015-01-24 Outpatient [facility] [id number] Access 00:00:00 00:00:00 H, PROVIDER valerie4ep7-89a f80-44 d8-a Health 0-bo1kmz625 [id number] 0f4 [id number] 2015-01-08 2015-01-08 Outpatient [facility] [id number] Access 00:00:00 00:00:00 H, PROVIDER Will garcia 2015-01-08 2015-01-08 Outpatient [facility] [id number] Access 00:00:00 00:00:00 H, PROVIDER valerie2xr6-82x 64f-4c a3-9 Health 0-rc7gdg591 [id number] 0f4 [id number] 2015-01-01 2015-01-01 Outpatient [facility] [id number] Access 00:00:00 00:00:00 H, PROVIDER Will garcia 2015-01-01 2015-01-01 Outpatient [facility] [id number] Access 00:00:00 00:00:00 H, PROVIDER valerie1we4-35m 53f-43 97-b Health 0-ev6jcv934 [id number] 0f4 [id number] 2014-12-27 2014-12-27 Outpatient [facility] [id number] Access 00:00:00 00:00:00 H, PROVIDER Will garcia 2014-12-27 2014-12-27 Outpatient [facility] [id number] Access 00:00:00 00:00:00 H, PROVIDER tatyana5ba3-95w ca7-44 22-9 Health 0-pd8tam168 [id number] 0f4 3eed3a 2014-12-07 2014-12-07 Outpatient [facility] 107 [id number] Access 00:00:00 00:00:00 H, PROVIDER Will garcia 2014-12-07 2014-12-07 Outpatient [facility] [id number] Access 00:00:00 00:00:00 H, PROVIDER tatyana0ws3-70g c82-4a dd-a Health 0-ad6dph041 6ab-de3ca6 0f4 8aee2f 2014-05-08 2014-05-08 Outpatient [facility] [id number] Access 00:00:00 00:00:00 H, PROVIDER Will garcia 2014-05-08 2014-05-08 Outpatient [facility] [id number] Access 00:00:00 00:00:00 H, PROVIDER tatyana2bu6-63k e34-45 36-8 Health 0-vo8wst116 [id number] 0f4 [id number] 2014-04-26 2014-04-26 Outpatient [facility] [id number] Access 00:00:00 00:00:00 H, PROVIDER Will garcia 2014-04-26 2014-04-26 Outpatient [facility] [id number] Access 00:00:00 00:00:00 H, PROVIDER tatyana0oh2-56k ed4-4c e6-b Health 0-ar2anq522 ef8-5a22de 0f4 4fecab 2014-04-25 2014-04-25 Outpatient [facility] [id number] Access 00:00:00 00:00:00 H, PROVIDER Will garcia 2014-04-25 2014-04-25 Outpatient [facility] [id number] Access 00:00:00 00:00:00 H, PROVIDER e2-4pi4-11d 477-46 7f-9 [facility] 0-ai6tol213 66f-fe43c4 0f4 [id number] 2014-04-09 2014-04-09 [facility] [id number] Access 00:00:00 00:00:00 H, PROVIDER Will garcia 2014-04-09 2014-04-09 [facility] [id number] Access 00:00:00 00:00:00 H, PROVIDER e2-6qp0-02s 783-44 d2-9 [facility] 0-th6mtt746 [id number] 0f4 [id number] 2014-03-12 2014-03-12 [facility] [id number] Access 00:00:00 00:00:00 H, PROVIDER Will garcia 2014-03-12 2014-03-12 Outpatient [facility] [id number] Access 00:00:00 00:00:00 H, PROVIDER e2-2rs3-14l d5c-45 e4-8 [facility] 0-fa4lqc965 [id number] 0f4 [id number] Results Test Description Test Time Test Comments Results Result Comments Source Panel Description: Albumin/Creatinine Ratio,Urine 2021-01-30 17:11:00 Test Item Value Reference Range Interpretation Comme nts Creatinine, Urine (test code 54.5 mg/dL Not Estab. = 2161-8) Albumin, Urine (test code = 2814.8 ug/mL Not Estab. Results confirmed 96136-9) ondilution.<br/ >
Perform ed by:
LabNeida Kaur (HD)

Alb/Creat Ratio (test code = 5165 mg/gcreat 0-29 H 9318-7) Normal : 0 - 29 Moderately incr eased: 30 - 300 Sev erely increased: >300

Performed by:
LabOrlando Kaur (HD)

[facility] Description: Albumin/Creatinine Ratio,[id number] 17:11:00 Test Item Value Reference Range Interpretation Comments Creatinine, Urine 54.5 mg/dL Not Estab. (test code = 2161-8) Albumin, Urine 2814.8 ug/mL Not Estab. Results confi rmed (test code = ondilution.<br/ >
P 02843-4) erformed by:
[facility] [place] ([place])

Alb/Creat Ratio 5165 mg/gcreat 0-29 H (test code = Normal: 9318-7) 0 - 29 Moderately incr eased: 30 - 300 Severely increa sed: >300

Perfo rmed by:
[facility] [place] ([place])

[facility] Description: Albumin/Creatinine Ratio,[id number] 17:11:00 Test Item Value Reference Range Interpretation Comments Creatinine, Urine 54.5 mg/dL Not Estab. (test code = 2161-8) Albumin, Urine 2814.8 ug/mL Not Estab. Results confi rmed (test code = ondilution.<br/ >
P [id number]) erformed by:
[facility] [place] ([place])

Alb/Creat Ratio 5165 mg/gcreat 0-29 H (test code = Normal: 9318-7) 0 - 29 Moderately incr eased: 30 - 300 Severely increa sed: >300

Perfo rmed by:
[facility] [place] ([place])

[facility] Description: Albumin/Creatinine Ratio,[id number] 17:11:00 Test Item Value Reference Range Interpretation Comments Creatinine, Urine 54.5 mg/dL Not Estab. (test code = 2161-8) Albumin, Urine 2814.8 ug/mL Not Estab. Results confi rmed (test code = ondilution.<br/ >
P [id number]) erformed by:
[facility] [place] ([place])

Alb/Creat Ratio 5165 mg/gcreat 0-29 H (test code = Normal: 9318-7) 0 - 29 Moderately incr eased: 30 - 300 Severely increa sed: >300

Perfo rmed by:
[facility] [place] ([place])

[facility] Description: Natriuretic peptide B [Mass/volume] in Serum or [id number] 13:36:00 Test Item Value Reference Range Interpretation Comments B-Type Natriuretic Peptide (test 396.8 pg/mL 0.0-100.0 H code = 88875-6) [facility] Description: Natriuretic peptide B [Mass/volume] in Serum or [id number] 13:36:00 Test Item Value Reference Range Interpretation Comments B-Type Natriuretic Peptide (test 396.8 pg/mL 0.0-100.0 H code = 91693-3) [facility] Description: Natriuretic peptide B [Mass/volume] in Serum or Drepwx6788-12-67 13:36:00 Test Item Value Reference Range Interpretation Comments B-Type Natriuretic Peptide (test 396.8 pg/mL 0.0-100.0 H code = 44002-8) [facility] Description: Natriuretic peptide B [Mass/volume] in Serum or [id number] 13:36:00 Test Item Value Reference Range Interpretation Comments B-Type Natriuretic Peptide (test 396.8 pg/mL 0.0-100.0 H code = 37555-3) [facility] Description: Hemoglobin A1c/Hemoglobin.total in Blood 2021-01-30 12:27:00 Test Item Value Reference Range Interpretation Comments Hemoglobin A1c (test code 8.7 % 4.8-5.6 H = 4548-4) . Prediabetes: 5. 7 - 6.4 Diabetes : >6.4 Glycemic control for adults with diabetes: <7.0

P erformed by:
[facility] [place] ([place])

[facility] Description: Hemoglobin A1c/Hemoglobin.total in Blood 2021-01-30 12:27:00 Test Item Value Reference Range Interpretation Comments Hemoglobin A1c (test code 8.7 % 4.8-5.6 H = 4548-4) . Prediabetes: 5. 7 - 6.4 Diabetes : >6.4 Glycemic control for adults with diabetes: <7.0

P erformed by:
[facility] [place] ([place])

[facility] Description: Hemoglobin A1c/Hemoglobin.total in Blood 2021-01-30 12:27:00 Test Item Value Reference Range Interpretation Comments Hemoglobin A1c (test code 8.7 % 4.8-5.6 H = 4548-4) . Prediabetes: 5. 7 - 6.4 Diabetes : >6.4 Glycemic control for adults with diabetes: <7.0

P erformed by:
[facility] [place] ([place])

[facility] Description: Hemoglobin A1c/Hemoglobin.total in Blood 2021-01-30 12:27:00 Test Item Value Reference Range Interpretation Comments Hemoglobin A1c (test code 8.7 % 4.8-5.6 H = 4548-4) . Prediabetes: 5. 7 - 6.4 Diabetes : >6.4 Glycemic control for adults with diabetes: <7.0

P erformed by:
[facility] [place] ()

[facility] Description: C reactive protein [Mass/volume] in Serum or [id number] 04:53:00 Test Item Value Reference Range Interpretation Comments C-Reactive Protein, Quant (test code 13 mg/L 0-10 H = 1987-07) [facility] Description: C reactive protein [Mass/volume] in Serum or [id number] 04:53:00 Test Item Value Reference Range Interpretation Comments C-Reactive Protein, Quant (test code 13 mg/L 0-10 H = 1987-07) [facility] Description: C reactive protein [Mass/volume] in Serum or Jrcdjc6371-30-13 04:53:00 Test Item Value Reference Range Interpretation Comments C-Reactive Protein, Quant (test code 13 mg/L 0-10 H = 1987-07) [facility] Description: C reactive protein [Mass/volume] in Serum or Gfjmdw2674-96-11 04:53:00 Test Item Value Reference Range Interpretation Comments C-Reactive Protein, Quant (test code 13 mg/L 0-10 H = 1987-) [facility] Description: 25-hydroxyvitamin D3 [Mass/volume] in Serum or Clmeka1419-81-72 03:48:00 Test Item Value Reference Range Interpretation Comments Vitamin D, 17.6 ng/mL 30.0-100.0 L Vitamin D defic iency has 25-Hydroxy (test been define d by the code = 61684-3) [place] [employer] and an Endocrine So [facility] practice guidel ine as alevel of serum 25-OH vitamin D less than 20 ng/mL (1,2).The Endocrine Society went on to further define vitamin Dinsufficiency as a level between 21 and 29 ng/mL (2).1. IOM (Ins titute of Medicine). 2010 . Dietary reference int akes for calcium and D. [place]: [employer] .2. Ela Oliveros, Stephane EMERSON, et al. Evaluatio n, treatment, and prevention of vitamin D deficiency: an Endocrine Society clinica l practice guideline. EM. 2010; 96(7):1911-30.< br/>
P erformed by:
[facility] ()

[facility] Description: 25-hydroxyvitamin D3 [Mass/volume] in Serum or Youxtn5066-02-29 03:48:00 Test Item Value Reference Range Interpretation Comments Vitamin D, 17.6 ng/mL 30.0-100.0 L Vitamin D defic iency has 25-Hydroxy (test been define d by the code = 14324-2) [place] [employer] and an Endocrine So [facility] practice guidel ine as alevel of serum 25-OH vitamin D less than 20 ng/mL (1,2).The Endocrine Society went on to further define vitamin Dinsufficiency as a level between 21 and 29 ng/mL (2).1. IOM (Ins titute of Medicine). 2010 . Dietary reference int akes for calcium and D. [place]: [employer] .2. Ela Oliveros, Stephane EMERSON, et al. Evaluatio n, treatment, and prevention of vitamin D deficiency: an Endocrine Society clinica l practice guideline. EM. 2010; 96(7):1911-30.< br/>
P erformed by:
[facility] ([place])

[facility] Description: 25-hydroxyvitamin D3 [Mass/volume] in Serum or [id number] 03:48:00 Test Item Value Reference Range Interpretation Comments Vitamin D, 17.6 ng/mL 30.0-100.0 L Vitamin D defic iency has 25-Hydroxy (test been define d by the code = 43633-0) [place] [employer] and [employer] Endocrine So [facility] practice guidel ine as alevel of serum 25-OH vitamin D less than 20 ng/mL (1,2).The Endocrine Society went on to further define vitamin Dinsufficiency as a level between 21 and 29 ng/mL (2).1. IOM (Ins titute of Medicine). 2010 . Dietary reference int akes for calcium and D. [place]: [employer] .2. Dileep MF, Ela SANTA, Stephane blake EMERSON, et al. Evaluatio n, treatment, and prevention of vitamin D deficiency: an Endocrine Society clinica l practice guideline. EM. 2010; 96(7):1911-30.< br/>
P erformed by:
[facility] ([place])

[facility] Description: 25-hydroxyvitamin D3 [Mass/volume] in Serum or Sgzmxc1831-79-73 03:48:00 Test Item Value Reference Range Interpretation Comments Vitamin D, 17.6 ng/mL 30.0-100.0 L Vitamin D defic iency has 25-Hydroxy (test been define d by the code = 58572-5) [place] [employer] and an Endocrine So [facility] practice guidel ine as alevel of serum 25-OH vitamin D less than 20 ng/mL (1,2).The Endocrine Society went on to further define vitamin Dinsufficiency as a level between 21 and 29 ng/mL (2).1. IOM (Ins titute of Medicine). 2010 . Dietary reference int akes for calcium and D. [place] [facility] [place]: [employer] .2. Dileep MF, Ela [place], [place] i EMERSON, et al. Evaluatio n, treatment, and prevention of vitamin D deficiency: an Endocrine Society clinica l practice guideline. [place] EM. 2010; 96(0):1911-30.< br/>
P erformed by:
[facility] ([place])

[facility] Description: Erythrocyte sedimentation rate by Westergren kexcse2303-00-44 03:06:00 Test Item Value Reference Range Interpretation Comments Sedimentation Rate-Westergren (test 27 mm/hr 0-15 H code = 4537-7) [facility] Description: Erythrocyte sedimentation rate by Westergren vucryg3536-93-74 03:06:00 Test Item Value Reference Range Interpretation Comments Sedimentation Rate-Westergren (test 27 mm/hr 0-15 H code = 4537-7) [facility] Description: Erythrocyte sedimentation rate by Westergren udspgw7310-31-24 03:06:00 Test Item Value Reference Range Interpretation Comments Sedimentation Rate-Westergren (test 27 mm/hr 0-15 H code = 4537-7) [facility] Description: Erythrocyte sedimentation rate by Westergren dehusg6196-31-66 03:06:00 Test Item Value Reference Range Interpretation Comments Sedimentation Rate-Westergren (test 27 mm/hr 0-15 H code = 4537-7) [facility] Description: Phosphate [Mass/volume] in Serum or Plasma 2021-01-30 02:57:00 Test Item Value Reference Range Interpretation Comments Phosphorus (test code = 2777-1) 4.5 mg/dL 2.8-4.1 H [facility] Description: Magnesium [Mass/volume] in Serum or Plasma 2021-01-30 02:57:00 Test Item Value Reference Range Interpretation Comments Magnesium (test code = 13841-7) 1.8 mg/dL 1.6-2.3 [facility] Description: Microscopic Onycxbekgxy0350-06-04 02:57:00 Test Item Value Reference Range Interpretation Comments WBC (test code = 5821-4) None seen 0-5 RBC (test code = 25039-7) None seen 0-2 Epithelial Cells (non renal) (test None seen 0-10 code = 5787-7) Epithelial Cells (renal) (test code = 79191-1) Casts (test code = 93268-4) None seen None seen Cast Type (test code = 25878-8) Crystals (test code = 5783-6) Crystal Type (test code = 5782-8) Mucus Threads (test code = 8247-9) Bacteria (test code = 5769-5) None seen None seen/Few Yeast (test code = 5822-2) Trichomonas (test code = 5813-1) Comment (test code = 63540-1) [facility] Description: Urate [Mass/volume] in Serum or [id number] 02:57:00 Test Item Value Reference Range Interpretation Comments Uric Acid (test 11.5 mg/dL 3.8-8.4 H code = 3084-1) Therapeutic t arget for gout patients: <6.0

P erformed by:
[facility] ([place])

[facility] Description: Comp. Metabolic Panel (14)2021-01-30 02:57:00 Test Item Value Reference Range Interpretation Comments Glucose (test code 256 mg/dL 65-99 H = 2345-7) BUN (test code = 57 mg/dL 6-24 H 3094-0) Creatinine (test 2.38 mg/dL 0.76-1.27 H code = 2160-0) eGFR If NonAfricn 31 >59 L Am (test code = mL/min/1.73 33869-6) eGFR If Africn Am 36 >59 L In accor dance with (test code = mL/min/1.73 recommendations from 34283-6) the NKF-ASN Tas k force, [facility] is in the process of updating its eG FR calculation to the 2020 CKD-EPI creatinine equa tion that estimates kidney function witho ut a race variable.
< br/>Per formed by:
[facility] ([place])

BUN/Creatinine 24 9-20 H Ratio (test code = 3097-3) Sodium (test code = 139 mmol/L 199-917 6547-2) Potassium (test 4.9 mmol/L 3.5-5.2 code = 2823-3) Chloride (test code 100 mmol/L 96-106 = 2075-0) Carbon Dioxide, 23 mmol/L 20-29 Total (test code = 2027-) Calcium (test code 9.0 mg/dL 8.7-10.2 = 72730-3) Protein, Total 6.5 g/dL 6.0-8.5 (test code = 2885-2) Albumin (test code 3.4 g/dL 4.0-5.0 L = 1751-7) Globulin, Total 3.1 g/dL 1.5-4.5 (test code = 91993-1) A/G Ratio (test 1.1 1.2-2.2 L code [...] Range Interpretation Comments Magnesium (test code = 15239-5) 1.8 mg/dL 1.6-2.3 [facility] Description: Microscopic Oeyzdwqwgtb5641-50-31 02:57:00 Test Item Value Reference Range Interpretation Comments WBC (test code = 5821-4) None seen 0-5 RBC (test code = 66288-9) None seen 0-2 Epithelial Cells (non renal) (test None seen 0-10 code = 5787-7) Epithelial Cells (renal) (test code = 41736-2) Casts (test code = 83054-4) None seen None seen Cast Type (test code = 99759-5) Crystals (test code = 5783-6) Crystal Type (test code = 5782-8) Mucus Threads (test code = 8247-9) Bacteria (test code = 5769-5) None seen None seen/Few Yeast (test code = 5822-2) Trichomonas (test code = 5813-1) Comment (test code = 15190-6) [facility] Description: Urate [Mass/volume] in Serum or Nqvktz0948-34-33 02:57:00 Test Item Value Reference Range Interpretation Comments Uric Acid (test 11.5 mg/dL 3.8-8.4 H code = 3084-1) Therapeutic t arget for gout patients: <6.0

P erformed by:
[facility] ([place])

[facility] Description: Comp. Metabolic Panel (14)2021-01-30 02:57:00 Test Item Value Reference Range Interpretation Comments Glucose (test code 256 mg/dL 65-99 H = 2345-7) BUN (test code = 57 mg/dL 6-24 H 3094-0) Creatinine (test 2.38 mg/dL 0.76-1.27 H code = 2160-0) eGFR If NonAfricn 31 >59 L Am (test code = mL/min/1.73 05206-7) eGFR If Africn Am 36 >59 L In accor dance with (test code = mL/min/1.73 recommendations from 73912-4) the NKF-ASN Tas k force, [facility] is in the process of updating its eG FR calculation to the 2020 CKD-EPI creatinine equa tion that estimates kidney function witho ut a race variable.
< br/>Per formed by:
[facility] ([place])

BUN/Creatinine 24 9-20 H Ratio (test code = 3097-3) Sodium (test code = 139 mmol/L 514-271 9900-2) Potassium (test 4.9 mmol/L 3.5-5.2 code = 2823-3) Chloride (test code 100 mmol/L 96-106 = 5-0) Carbon Dioxide, 23 mmol/L 20-29 Total (test code = 2027-) Calcium (test code 9.0 mg/dL 8.7-10.2 = 57543-1) Protein, Total 6.5 g/dL 6.0-8.5 (test code = 2885-2) Albumin (test code 3.4 g/dL 4.0-5.0 L = 1751-7) Globulin, Total 3.1 g/dL 1.5-4.5 (test code = 58615-9) A/G Ratio (test 1.1 1.2-2.2 L code = 1759-0) Bilirubin, Total 0.4 mg/dL 0.0-1.2 (test code = 1974-2) Alkaline 124 IU/L 44-121 H Phosphatase (test Pl ease note code = 6768-6) reference int erval change
<b r/>Perf ormed by:
[facility] ([place])

AST (SGOT) (test 17 IU/L 0-40 code = 1920-8) ALT (SGPT) (test 23 IU/L 0-44 code = 1742-6) [facility] Description: Phosphate [Mass/volume] in Serum or Plasma 2021-01-30 02:57:00 Test Item Value Reference Range Interpretation Comments Phosphorus (test code = 2777-1) 4.5 mg/dL 2.8-4.1 H [facility] Description: Magnesium [Mass/volume] in Serum or Plasma 2021-01-30 02:57:00 Test Item Value Reference Range Interpretation Comments Magnesium (test code = 26632-5) 1.8 mg/dL 1.6-2.3 [facility] Description: Microscopic Tzhqbmxixtl3047-27-19 02:57:00 Test Item Value Reference Range Interpretation Comments WBC (test code = 5821-4) None seen 0-5 RBC (test code = 16065-9) None seen 0-2 Epithelial Cells (non renal) (test None seen 0-10 code = 5787-7) Epithelial Cells (renal) (test code = 70687-7) Casts (test code = 72573-1) None seen None seen Cast Type (test code = 76543-7) Crystals (test code = 5783-6) Crystal Type (test code = 5782-8) Mucus Threads (test code = 8247-9) Bacteria (test code = 5769-5) None seen None seen/Few Yeast (test code = 5822-2) Trichomonas (test code = 5813-1) Comment (test code = 66548-5) [facility] Description: Urate [Mass/volume] in Serum or Ieqcay1715-44-94 02:57:00 Test Item Value Reference Range Interpretation Comments Uric Acid (test 11.5 mg/dL 3.8-8.4 H code = 3084-1) Therapeutic t arget for gout patients: <6.0

P erformed by:
[facility] ([place])

[facility] Description: Comp. Metabolic Panel (14)2021-01-30 02:57:00 Test Item Value Reference Range Interpretation Comments Glucose (test code 256 mg/dL 65-99 H = 2345-7) BUN (test code = 57 mg/dL 6-24 H 3094-0) Creatinine (test 2.38 mg/dL 0.76-1.27 H code = 2160-0) eGFR If NonAfricn 31 >59 L Am (test code = mL/min/1.73 79556-3) eGFR If Africn Am 36 >59 L In accor dance with (test code = mL/min/1.73 recommendations from 86744-0) the NKF-ASN Tas k force, [facility] is in the process of updating its eG FR calculation to the 2020 CKD-EPI creatinine equa tion that estimates kidney function witho ut a race variable.
< br/>Per formed by:
[facility] ([place])

BUN/Creatinine 24 9-20 H Ratio (test code = 3097-3) Sodium (test code = 139 mmol/L 098-162 3485-2) Potassium (test 4.9 mmol/L 3.5-5.2 code = 2823-3) Chloride (test code 100 mmol/L 96-106 = 2075-0) Carbon Dioxide, 23 mmol/L 20-29 Total (test code = 2027-) Calcium (test code 9.0 mg/dL 8.7-10.2 = 60741-8) Protein, Total 6.5 g/dL 6.0-8.5 (test code = 2885-2) Albumin (test code 3.4 g/dL 4.0-5.0 L = 1751-7) Globulin, Total 3.1 g/dL 1.5-4.5 (test code = 84154-2) A/G Ratio (test 1.1 1.2-2.2 L code = 1759-0) Bilirubin, Total 0.4 mg/dL 0.0-1.2 (test code = 1975-2) Alkaline 124 IU/L 44-121 H Phosphatase (test Pl ease note code = 6768-6) reference int erval change
<b r/>Perf ormed by:
[facility] ([place])

AST (SGOT) (test 17 IU/L 0-40 code = 1920-8) ALT (SGPT) (test 23 IU/L 0-44 code = 1742-6) [facility] Description: Phosphate [Mass/volume] in Serum or Plasma 2021-01-30 02:57:00 Test Item Value Reference Range Interpretation Comments Phosphorus (test code = 2777-1) 4.5 mg/dL 2.8-4.1 H [facility] Description: Magnesium [Mass/volume] in Serum or Plasma 2021-01-30 02:57:00 Test Item Value Reference Range Interpretation Comments Magnesium (test code = 07142-1) 1.8 mg/dL 1.6-2.3 [facility] Description: Microscopic Amrcbtznwew6974-83-99 02:57:00 Test Item Value Reference Range Interpretation Comments WBC (test code = 5821-4) None seen 0-5 RBC (test code = 20902-3) None seen 0-2 Epithelial Cells (non renal) (test None seen 0-10 code = 5787-7) Epithelial Cells (renal) (test code = 66204-5) Casts (test code = 85153-4) None seen None seen Cast Type (test code = 77279-1) Crystals (test code = 5783-6) Crystal Type (test code = 5782-8) Mucus Threads (test code = 8247-9) Bacteria (test code = 5769-5) None seen None seen/Few Yeast (test code = 5822-2) Trichomonas (test code = 5813-1) Comment (test code = 23663-9) [facility] Description: Urate [Mass/volume] in Serum or Mbofzp9795-61-12 02:57:00 Test Item Value Reference Range Interpretation Comments Uric Acid (test 11.5 mg/dL 3.8-8.4 H code = 3084-1) Therapeutic t arget for gout patients: <6.0

P erformed by:
[facility] ([place])

[facility] Description: Comp. Metabolic Panel (14)2021-01-30 02:57:00 Test Item Value Reference Range Interpretation Comments Glucose (test code 256 mg/dL 65-99 H = 2345-7) BUN (test code = 57 mg/dL 6-24 H 3094-0) Creatinine (test 2.38 mg/dL 0.76-1.27 H code = 2160-0) eGFR If NonAfricn 31 >59 L Am (test code = mL/min/1.73 97559-0) eGFR If Africn Am 36 >59 L In accor dance with (test code = mL/min/1.73 recommendations from 29278-1) the NKF-ASN Tas k force, [facility] is in the process of updating its eG FR calculation to the 2020 CKD-EPI creatinine equa tion that estimates kidney function witho ut a race variable.
< br/>Per formed by:
[facility] ([place])

BUN/Creatinine 24 9-20 H Ratio (test code = 3097-3) Sodium (test code = 139 mmol/L 209-953 0863-2) Potassium (test 4.9 mmol/L 3.5-5.2 code = 2823-3) Chloride (test code 100 mmol/L 96-106 = 2075-0) Carbon Dioxide, 23 mmol/L 20-29 Total (test code = 2027-9) Calcium (test code 9.0 mg/dL 8.7-10.2 = 96807-1) Protein, Total 6.5 g/dL 6.0-8.5 (test code = 2885-2) Albumin (test code 3.4 g/dL 4.0-5.0 L = 1751-7) Globulin, Total 3.1 g/dL 1.5-4.5 (test code = 49934-9) A/G Ratio (test 1.1 1.2-2.2 L code = 1759-0) Bilirubin, Total 0.4 mg/dL 0.0-1.2 (test code = 1975-2) Alkaline 124 IU/L 44-121 H Phosphatase (test Pl ease note code = 6768-6) reference int erval change
<b r/>Perf ormed by:
[facility] ([place])

AST (SGOT) (test 17 IU/L 0-40 code = 1920-8) ALT (SGPT) (test 23 IU/L 0-44 code = 1742-6) [facility] Description: Urinalysis, Tbbajhsu0852-00-33 02:24:00 Test Item Value Reference Range Interpretation Comments Specific [place] (test 1.017 1.005-1.030 code = 2965-2) pH (test code = 5.5 5.0-7.5 5803-2) Urine-Color (test code Yellow Yellow = 5778-6) Appearance (test code Clear Clear = 5767-9) WBC Esterase (test Negative Negative code = 5799-2) Protein (test code = 4+ Negative/Trace A 26754-0) Glucose (test code = 1+ Negative A 2349-9) Ketones (test code = Negative Negative 2514-8) Occult Blood (test Trace Negative A code = 5794-3) Bilirubin (test code = Negative Negative 5770-3) Urobilinogen,Semi-Qn 0.2 mg/dL 0.2-1.0 (test code = 32388-2) Nitrite, Urine (test Negative Negative code = 5802-4) Microscopic See below: Microscopic was Examination (test code indic ated and was = 11007-9) performed.

P erformed by:
[facility] [place] ()

[facility] Description: Urinalysis, Gfqokgqc7979-62-49 02:24:00 Test Item Value Reference Range Interpretation Comments Specific [place] (test 1.017 1.005-1.030 code = 2965-2) pH (test code = 5.5 5.0-7.5 5803-2) Urine-Color (test code Yellow Yellow = 5778-6) Appearance (test code Clear Clear = 5767-9) WBC Esterase (test Negative Negative code = 5799-2) Protein (test code = 4+ Negative/Trace A 05787-9) Glucose (test code = 1+ Negative A 2349-9) Ketones (test code = Negative Negative 2514-8) Occult Blood (test Trace Negative A code = 5794-3) Bilirubin (test code = Negative Negative 5770-3) Urobilinogen,Semi-Qn 0.2 mg/dL 0.2-1.0 (test code = 28573-3) Nitrite, Urine (test Negative Negative code = 5802-4) Microscopic See below: Microscopic was Examination (test code indic ated and was = 78211-5) performed.

P erformed by:
[facility] [place] ()

[facility] Description: Urinalysis, Recofbag0244-79-42 02:24:00 Test Item Value Reference Range Interpretation Comments Specific [place] (test 1.017 1.005-1.030 code = 2965-2) pH (test code = 5.5 5.0-7.5 5803-2) Urine-Color (test code Yellow Yellow = 5778-6) Appearance (test code Clear Clear = 5767-9) WBC Esterase (test Negative Negative code = 5799-2) Protein (test code = 4+ Negative/Trace A 26228-7) Glucose (test code = 1+ Negative A 2349-9) Ketones (test code = Negative Negative 2514-8) Occult Blood (test Trace Negative A code = 5794-3) Bilirubin (test code = Negative Negative 5770-3) Urobilinogen,Semi-Qn 0.2 mg/dL 0.2-1.0 (test code = 04102-1) Nitrite, Urine (test Negative Negative code = 5802-4) Microscopic See below: Microscopic was Examination (test code indic ated and was = 03024-9) performed.

P erformed by:
[facility] [place] ()

[facility] Description: Urinalysis, Fvsgpaja8612-86-88 02:24:00 Test Item Value Reference Range Interpretation Comments Specific [place] (test 1.017 1.005-1.030 code = 2965-2) pH (test code = 5.5 5.0-7.5 5803-2) Urine-Color (test code Yellow Yellow = 5778-6) Appearance (test code Clear Clear = 5767-9) WBC Esterase (test Negative Negative code = 5799-2) Protein (test code = 4+ Negative/Trace A 01605-0) Glucose (test code = 1+ Negative A 2349-9) Ketones (test code = Negative Negative 2514-8) Occult Blood (test Trace Negative A code = 5794-3) Bilirubin (test code = Negative Negative 5770-3) Urobilinogen,Semi-Qn 0.2 mg/dL 0.2-1.0 (test code = 01873-2) Nitrite, Urine (test Negative Negative code = 5802-4) Microscopic See below: Microscopic was Examination (test code indic ated and was = 73358-9) performed.

P erformed by:
[facility] [place] ()

[facility] Description: Urinalysis, Yxveqehx6582-21-07 02:24:00 Microscopic Examination[facility] Description: Urinalysis, Complete 2021-01-30 02:24:00Microscopic Examination[facility] Description: Urinalysis, Anftsrrl2723-17-48 02:24:00Microscopic [facility] Description: Urinalysis, Yrnppqwe7240-57-08 02:24:00Microscopic Examination [facility] Description: Natriuretic peptide B [Mass/volume] in Serum or [id number] 13:54:00 Test Item Value Reference Range Interpretation Comments B-Type Natriuretic Peptide (test 427.5 pg/mL 0.0-100.0 H code = 57330-4) [facility] Description: Natriuretic peptide B [Mass/volume] in Serum or [id number] 13:54:00 Test Item Value Reference Range Interpretation Comments B-Type Natriuretic Peptide (test 427.5 pg/mL 0.0-100.0 H code = 03138-6) [facility] Description: Natriuretic peptide B [Mass/volume] in Serum or [id number] 13:54:00 Test Item Value Reference Range Interpretation Comments B-Type Natriuretic Peptide (test 427.5 pg/mL 0.0-100.0 H code = 74015-0) [facility] Description: Natriuretic peptide B [Mass/volume] in Serum or [id number] 13:54:00 Test Item Value Reference Range Interpretation Comments B-Type Natriuretic Peptide (test 427.5 pg/mL 0.0-100.0 H code = 34704-4) [facility] Description: Natriuretic peptide B [Mass/volume] in Serum or [id number] 13:54:00 Test Item Value Reference Range Interpretation Comments B-Type Natriuretic Peptide (test 427.5 pg/mL 0.0-100.0 H code = 22051-7) [facility] Description: Natriuretic peptide B [Mass/volume] in Serum or [id number] 13:54:00 Test Item Value Reference Range Interpretation Comments B-Type Natriuretic Peptide (test 427.5 pg/mL 0.0-100.0 H code = 64144-7) [facility] Description: Natriuretic peptide B [Mass/volume] in Serum or [id number] 13:54:00 Test Item Value Reference Range Interpretation Comments B-Type Natriuretic Peptide (test 427.5 pg/mL 0.0-100.0 H code = 17436-9) [facility] Description: Natriuretic peptide B [Mass/volume] in Serum or [id number] 13:54:00 Test Item Value Reference Range Interpretation Comments B-Type Natriuretic Peptide (test 427.5 pg/mL 0.0-100.0 H code = 87878-8) [facility] Description: Natriuretic peptide B [Mass/volume] in Serum or [id number] 13:54:00 Test Item Value Reference Range Interpretation Comments B-Type Natriuretic Peptide (test 427.5 pg/mL 0.0-100.0 H code = 46983-8) [facility] Description: Natriuretic peptide B [Mass/volume] in Serum or [id number] 13:54:00 Test Item Value Reference Range Interpretation Comments B-Type Natriuretic Peptide (test 427.5 pg/mL 0.0-100.0 H code = 80618-9) [facility] Description: Phosphate [Mass/volume] in Serum or Plasma 2020-12-04 02:42:00 Test Item Value Reference Range Interpretation Comments Phosphorus (test code = 2777-1) 4.4 mg/dL 2.8-4.1 H [facility] Description: Phosphate [Mass/volume] in Serum or Plasma 2020-12-04 02:42:00 Test Item Value Reference Range Interpretation Comments Phosphorus (test code = 2777-1) 4.4 mg/dL 2.8-4.1 H [facility] Description: Phosphate [Mass/volume] in Serum or Plasma 2020-12-04 02:42:00 Test Item Value Reference Range Interpretation Comments Phosphorus (test code = 2777-1) 4.4 mg/dL 2.8-4.1 H [facility] Description: Phosphate [Mass/volume] in Serum or Plasma 2020-12-04 02:42:00 Test Item Value Reference Range Interpretation Comments Phosphorus (test code = 2777-1) 4.4 mg/dL 2.8-4.1 H [facility] Description: Phosphate [Mass/volume] in Serum or Plasma 2020-12-04 02:42:00 Test Item Value Reference Range Interpretation Comments Phosphorus (test code = 2777-1) 4.4 mg/dL 2.8-4.1 H [facility] Description: Phosphate [Mass/volume] in Serum or Plasma [...] >59 L Am (test code = mL/min/1.73 16070-3) eGFR If Africn Am 37 >59 L [facility] currently (test code = mL/min/1.73 [place] [address]-2) compliance with the current recommendations of the [employer]. [place] will update re porting as new guidelin es are published from the NKF-ASN Task force.
<br/ >Perfor med by:
[facility] [place] ([place])

BUN/Creatinine 22 9-20 H Ratio (test code = 3097-3) Sodium (test code = 142 mmol/L 635-679 9667-2) Potassium (test 4.3 mmol/L 3.5-5.2 code = 2823-3) Chloride (test code 100 mmol/L 96-106 = 2074-0) Carbon Dioxide, 28 mmol/L 20-29 Total (test code = 2027-11) Calcium (test code 9.2 mg/dL 8.7-10.2 = 72491-4) Protein, Total 6.5 g/dL 6.0-8.5 (test code = 2885-2) Albumin (test code 3.5 g/dL 4.0-5.0 L = 1751-7) Globulin, Total 3.0 g/dL 1.5-4.5 (test code = 36551-2) A/G Ratio (test 1.2 1.2-2.2 code = [...] >59 L Am (test code = mL/min/1.73 87045-7) eGFR If Africn Am 37 >59 L [facility] currently (test code = mL/min/1.73 [place] 01370-6) compliance with the current recommendations of the [employer] Kid[employer]. [facility] [place] will update re porting as new guidelin es are published from the NKF-ASN Task force.
<br/ >Perfor med by:
[facility] ([place])

BUN/Creatinine 22 9-20 H Ratio (test code = 3097-3) Sodium (test code = 142 mmol/L 882-967 2910-2) Potassium (test 4.3 mmol/L 3.5-5.2 code = 2823-3) Chloride (test code 100 mmol/L 96-106 = 2075-0) Carbon Dioxide, 28 mmol/L 20-29 Total (test code = 2027-) Calcium (test code 9.2 mg/dL 8.7-10.2 = 52966-7) Protein, Total 6.5 g/dL 6.0-8.5 (test code = 2885-2) Albumin (test code 3.5 g/dL 4.0-5.0 L = 1751-7) Globulin, Total 3.0 g/dL 1.5-4.5 (test code = 15166-0) A/G Ratio (test 1.2 1.2-2.2 code = [...] 22 IU/L 0-44 code = 1742-6) [facility] Description: Comp. Metabolic Panel (14)2020-12-04 02:12:00 Test Item Value Reference Range Interpretation Comments Glucose (test code 315 mg/dL 65-99 H = 2345-7) BUN (test code = 52 mg/dL 6-24 H 3094-0) Creatinine (test 2.32 mg/dL 0.76-1.27 H code = 2160-0) eGFR If NonAfricn 32 >59 L Am (test code = mL/min/1.73 51140-1) eGFR If Africn Am 37 >59 L [facility] currently (test code = mL/min/1.73 [place]GFR [place] 12590-4) compliance with the current recommendations of the [employer] Kid[employer]. [facility] [place] will update re porting as new guidelin es are published from the NKF-ASN Task force.
<br/ >Perfor med by:
[facility] ([place])

BUN/Creatinine 22 9-20 H Ratio (test code = 3097-3) Sodium (test code = 142 mmol/L 222-932 3917-2) Potassium (test 4.3 mmol/L 3.5-5.2 code = 2823-3) Chloride (test code 100 mmol/L 96-106 = 2075-0) Carbon Dioxide, 28 mmol/L 20-29 Total (test code = 2027-) Calcium (test code 9.2 mg/dL 8.7-10.2 = 63407-6) Protein, Total 6.5 g/dL 6.0-8.5 (test code = 2885-2) Albumin (test code 3.5 g/dL 4.0-5.0 L = 1751-7) Globulin, Total 3.0 g/dL 1.5-4.5 (test code = 63418-3) A/G Ratio (test 1.2 1.2-2.2 code = [...] >59 L Am (test code = mL/min/1.73 67311-0) eGFR If Africn Am 37 >59 L [facility] currently (test code = mL/min/1.73 [place] [address]-7) compliance with the current recommendations of the [employer] Kid[employer]. [place] will update re porting as new guidelin es are published from the NKF-ASN Task force.
<br/ >Perfor med by:
[facility] ([place])

BUN/Creatinine 22 9-20 H Ratio (test code = 3097-3) Sodium (test code = 142 mmol/L 729-455 7074-2) Potassium (test 4.3 mmol/L 3.5-5.2 code = 2823-3) Chloride (test code 100 mmol/L 96-106 = 2075-0) Carbon Dioxide, 28 mmol/L 20-29 Total (test code = 2027-) Calcium (test code 9.2 mg/dL 8.7-10.2 = 44935-3) Protein, Total 6.5 g/dL 6.0-8.5 (test code = 2885-2) Albumin (test code 3.5 g/dL 4.0-5.0 L = 1751-7) Globulin, Total 3.0 g/dL 1.5-4.5 (test code = 91755-6) A/G Ratio (test 1.2 1.2-2.2 code = [...] 44 - 121

Pe rformed by:
[facility] [place] ([place])

AST (SGOT) (test 20 IU/L 0-40 code = 1920-8) ALT (SGPT) (test 22 IU/L 0-44 code = 1742-6) [facility] Description: Comp. Metabolic Panel (14)2020-12-04 02:12:00 Test Item Value Reference Range Interpretation Comments Glucose (test code 315 mg/dL 65-99 H = 2345-7) BUN (test code = 52 mg/dL 6-24 H 3094-0) Creatinine (test 2.32 mg/dL 0.76-1.27 H code = 2160-0) eGFR If NonAfricn 32 >59 L Am (test code = mL/min/1.73 34205-1) eGFR If Africn Am 37 >59 L [facility] currently (test code = mL/min/1.73 [place] 27140-6) compliance with the current recommendations of the [employer] Kid[employer]. [place] will update re porting as new guidelin es are published from the NKF-ASN Task force.
<br/ >Perfor med by:
[facility] [place] ([place])

BUN/Creatinine 22 9-20 H Ratio (test code = 3097-3) Sodium (test code = 142 mmol/L 302-937 0458-2) Potassium (test 4.3 mmol/L 3.5-5.2 code = 2823-3) Chloride (test code 100 mmol/L 96-106 = 2075-0) Carbon Dioxide, 28 mmol/L 20-29 Total (test code = 2027-) Calcium (test code 9.2 mg/dL 8.7-10.2 = 61902-7) Protein, Total 6.5 g/dL 6.0-8.5 (test code = 2885-2) Albumin (test code 3.5 g/dL 4.0-5.0 L = 1751-7) Globulin, Total 3.0 g/dL 1.5-4.5 (test code = 63140-0) A/G Ratio (test 1.2 1.2-2.2 code = [...] 44 - 121

Pe rformed by:
[facility] [place] ([place])

AST (SGOT) (test 20 IU/L 0-40 code = 1920-8) ALT (SGPT) (test 22 IU/L 0-44 code = 1742-6) [facility] Description: Comp. Metabolic Panel (14)2020-12-04 02:12:00 Test Item Value Reference Range Interpretation Comments Glucose (test code 315 mg/dL 65-99 H = 2345-7) BUN (test code = 52 mg/dL 6-24 H 3094-0) Creatinine (test 2.32 mg/dL 0.76-1.27 H code = 2160-0) eGFR If NonAfricn 32 >59 L Am (test code = mL/min/1.73 16141-1) eGFR If Africn Am 37 >59 L [facility] currently (test code = mL/min/1.73 [place] [address]59-7) compliance with the current recommendations of the [employer] Kid[employer]. [facility] [place] will update re porting as new guidelin es are published from the NKF-ASN Task force.
<br/ >Perfor med by:
[facility] ([place])

BUN/Creatinine 22 9-20 H Ratio (test code = 3097-3) Sodium (test code = 142 mmol/L 047-583 1971-2) Potassium (test 4.3 mmol/L 3.5-5.2 code = 2823-3) Chloride (test code 100 mmol/L 96-106 = 2075-0) Carbon Dioxide, 28 mmol/L 20-29 Total (test code = 2027-) Calcium (test code 9.2 mg/dL 8.7-10.2 = 84723-4) Protein, Total 6.5 g/dL 6.0-8.5 (test code = 2885-2) Albumin (test code 3.5 g/dL 4.0-5.0 L = 1751-7) Globulin, Total 3.0 g/dL 1.5-4.5 (test code = 51043-3) A/G Ratio (test 1.2 1.2-2.2 code = [...] 44 - 121

Pe rformed by:
[facility] [place] ([place])

AST (SGOT) (test 20 IU/L 0-40 code = 1920-8) ALT (SGPT) (test 22 IU/L 0-44 code = 1742-6) [facility] Description: Comp. Metabolic Panel (14)2020-12-04 02:12:00 Test Item Value Reference Range Interpretation Comments Glucose (test code 315 mg/dL 65-99 H = 2345-7) BUN (test code = 52 mg/dL 6-24 H 3094-0) Creatinine (test 2.32 mg/dL 0.76-1.27 H code = 2160-0) eGFR If NonAfricn 32 >59 L Am (test code = mL/min/1.73 60114-6) eGFR If Africn Am 37 >59 L [facility] currently (test code = mL/min/1.73 [place] 70642-0) compliance with the current recommendations of the National Kid[employer] Foundation. [facility] [place] will update re porting as new guidelin es are published from the NKF-ASN Task force.
<br/ >Perfor med by:
[facility] [place] ([place])

BUN/Creatinine 22 9-20 H Ratio (test code = 3097-3) Sodium (test code = 142 mmol/L 937-731 6598-2) Potassium (test 4.3 mmol/L 3.5-5.2 code = 2823-3) Chloride (test code 100 mmol/L 96-106 = 2075-0) Carbon Dioxide, 28 mmol/L 20-29 Total (test code = 2027-) Calcium (test code 9.2 mg/dL 8.7-10.2 = 10378-8) Protein, Total 6.5 g/dL 6.0-8.5 (test code = 2885-2) Albumin (test code 3.5 g/dL 4.0-5.0 L = 1751-7) Globulin, Total 3.0 g/dL 1.5-4.5 (test code = 33384-8) A/G Ratio (test 1.2 1.2-2.2 code = [...] 22 IU/L 0-44 code = 1742-6) [facility] Description: Comp. Metabolic Panel (14)2020-12-04 02:12:00 Test Item Value Reference Range Interpretation Comments Glucose (test code 315 mg/dL 65-99 H = 2345-7) BUN (test code = 52 mg/dL 6-24 H 3094-0) Creatinine (test 2.32 mg/dL 0.76-1.27 H code = 2160-0) eGFR If NonAfricn 32 >59 L Am (test code = mL/min/1.73 16830-9) eGFR If Africn Am 37 >59 L [facility] currently (test code = mL/min/1.73 [place] [address]-5) compliance with the current recommendations of the National Kidney Foundation. [place] will update re porting as new guidelin es are published from the NKF-ASN Task force.
<br/ >Perfor med by:
[facility] ([place])

BUN/Creatinine 22 9-20 H Ratio (test code = 3097-3) Sodium (test code = 142 mmol/L 622-623 6567-2) Potassium (test 4.3 mmol/L 3.5-5.2 code = 2823-3) Chloride (test code 100 mmol/L 96-106 = 2075-0) Carbon Dioxide, 28 mmol/L 20-29 Total (test code = 2027-) Calcium (test code 9.2 mg/dL 8.7-10.2 = 90544-7) Protein, Total 6.5 g/dL 6.0-8.5 (test code = 2885-2) Albumin (test code 3.5 g/dL 4.0-5.0 L = 1751-7) Globulin, Total 3.0 g/dL 1.5-4.5 (test code = 71129-9) A/G Ratio (test 1.2 1.2-2.2 code = [...] 44 - 121

Pe rformed by:
[facility] [place] ([place])

AST (SGOT) (test 20 IU/L 0-40 code = 1920-8) ALT (SGPT) (test 22 IU/L 0-44 code = 1742-6) [facility] Description: Comp. Metabolic Panel (14)2020-12-04 02:12:00 Test Item Value Reference Range Interpretation Comments Glucose (test code 315 mg/dL 65-99 H = 2345-7) BUN (test code = 52 mg/dL 6-24 H 3094-0) Creatinine (test 2.32 mg/dL 0.76-1.27 H code = 2160-0) eGFR If NonAfricn 32 >59 L Am (test code = mL/min/1.73 75088-4) eGFR If Africn Am 37 >59 L [facility] currently (test code = mL/min/1.73 [place] [address]-8) compliance with the current recommendations of the [employer] Kidney Foundation. [place] will update re porting as new guidelin es are published from the NKF-ASN Task force.
<br/ >Perfor med by:
[facility] [place] ([place])

BUN/Creatinine 22 9-20 H Ratio (test code = 3097-3) Sodium (test code = 142 mmol/L 703-361 4329-2) Potassium (test 4.3 mmol/L 3.5-5.2 code = 2823-3) Chloride (test code 100 mmol/L 96-106 = 2075-0) Carbon Dioxide, 28 mmol/L 20-29 Total (test code = 2027-) Calcium (test code 9.2 mg/dL 8.7-10.2 = 18869-9) Protein, Total 6.5 g/dL 6.0-8.5 (test code = 2885-2) Albumin (test code 3.5 g/dL 4.0-5.0 L = 1751-7) Globulin, Total 3.0 g/dL 1.5-4.5 (test code = 28337-5) A/G Ratio (test 1.2 1.2-2.2 code = [...] 44 - 121

Pe rformed by:
[facility] [place] ([place])

AST (SGOT) (test 20 IU/L 0-40 [...] >59 L Am (test code = mL/min/1.73 56374-4) eGFR If Africn Am 37 >59 L [facility] currently (test code = mL/min/1.73 [place] 18844-6) compliance with the current recommendations of the [employer] Kid[employer]. [facility] [place] will update re porting as new guidelin es are published from the NKF-ASN Task force.
<br/ >Perfor med by:
[facility] ([place])

BUN/Creatinine 22 9-20 H Ratio (test code = 3097-3) Sodium (test code = 142 mmol/L 717-566 6283-2) Potassium (test 4.3 mmol/L 3.5-5.2 code = 2823-3) Chloride (test code 100 mmol/L 96-106 = 2075-0) Carbon Dioxide, 28 mmol/L 20-29 Total (test code = 2027-) Calcium (test code 9.2 mg/dL 8.7-10.2 = 57870-3) Protein, Total 6.5 g/dL 6.0-8.5 (test code = 2885-2) Albumin (test code 3.5 g/dL 4.0-5.0 L = 1751-7) Globulin, Total 3.0 g/dL 1.5-4.5 (test code = 62981-1) A/G Ratio (test 1.2 1.2-2.2 code = [...] 22 IU/L 0-44 code = 1742-6) [facility] Description: Natriuretic peptide B [Mass/volume] in Serum or [id number] 14:32:00 Test Item Value Reference Range Interpretation Comments B-Type Natriuretic Peptide (test 682.3 pg/mL 0.0-100.0 H code = 39689-7) [facility] Description: Natriuretic peptide B [Mass/volume] in Serum or [id number] 14:32:00 Test Item Value Reference Range Interpretation Comments B-Type Natriuretic Peptide (test 682.3 pg/mL 0.0-100.0 H code = 30722-7) [facility] Description: Natriuretic peptide B [Mass/volume] in Serum or Pzsftj5047-22-30 14:32:00 Test Item Value Reference Range Interpretation Comments B-Type Natriuretic Peptide (test 682.3 pg/mL 0.0-100.0 H code = 82744-7) [facility] Description: Natriuretic peptide B [Mass/volume] in Serum or Hbxhyy4549-38-04 14:32:00 Test Item Value Reference Range Interpretation Comments B-Type Natriuretic Peptide (test 682.3 pg/mL 0.0-100.0 H code = 27740-7) [facility] Description: Natriuretic peptide B [Mass/volume] in Serum or [id number] 14:32:00 Test Item Value Reference Range Interpretation Comments B-Type Natriuretic Peptide (test 682.3 pg/mL 0.0-100.0 H code = 56510-5) [facility] Description: Natriuretic peptide B [Mass/volume] in Serum or Djdxuk8870-80-95 14:32:00 Test Item Value Reference Range Interpretation Comments B-Type Natriuretic Peptide (test 682.3 pg/mL 0.0-100.0 H code = 56727-8) [facility] Description: Natriuretic peptide B [Mass/volume] in Serum or Zjaqgb3589-17-57 14:32:00 Test Item Value Reference Range Interpretation Comments B-Type Natriuretic Peptide (test 682.3 pg/mL 0.0-100.0 H code = 08028-6) [facility] Description: Natriuretic peptide B [Mass/volume] in Serum or Pnaunh8419-57-85 14:32:00 Test Item Value Reference Range Interpretation Comments B-Type Natriuretic Peptide (test 682.3 pg/mL 0.0-100.0 H code = 71495-3) [facility] Description: Natriuretic peptide B [Mass/volume] in Serum or Ddhbqg0363-68-02 14:32:00 Test Item Value Reference Range Interpretation Comments B-Type Natriuretic Peptide (test 682.3 pg/mL 0.0-100.0 H code = 25829-9) [facility] Description: Natriuretic peptide B [Mass/volume] in Serum or [id number] 14:32:00 Test Item Value Reference Range Interpretation Comments B-Type Natriuretic Peptide (test 682.3 pg/mL 0.0-100.0 H code = 84900-6) [facility] Description: Natriuretic peptide B [Mass/volume] in Serum or Modapy8099-65-96 14:32:00 Test Item Value Reference Range Interpretation Comments B-Type Natriuretic Peptide (test 682.3 pg/mL 0.0-100.0 H code = 28223-1) [facility] Description: Natriuretic peptide B [Mass/volume] in Serum or Jfncbm8241-90-86 14:32:00 Test Item Value Reference Range Interpretation Comments B-Type Natriuretic Peptide (test 682.3 pg/mL 0.0-100.0 H code = 31248-9) [facility] Description: Parathyrin.intact [Mass/volume] in Serum or Djjops5051-66-62 08:48:00 Test Item Value Reference Range Interpretation Comments PTH, Intact (test code = 2731-8) 147 pg/mL 15-65 H [facility] Description: Parathyrin.intact [Mass/volume] in Serum or Kwdcgf2830-76-48 08:48:00 Test Item Value Reference Range Interpretation Comments PTH, Intact (test code = 2731-8) 147 pg/mL 15-65 H [facility] Description: Parathyrin.intact [Mass/volume] in Serum or Zxcmwe9418-17-85 08:48:00 Test Item Value Reference Range Interpretation Comments PTH, Intact (test code = 2731-8) 147 pg/mL 15-65 H [facility] Description: Parathyrin.intact [Mass/volume] in Serum or Zitfnn5711-62-83 08:48:00 Test Item Value Reference Range Interpretation Comments PTH, Intact (test code = 2731-8) 147 pg/mL 15-65 H [facility] Description: Parathyrin.intact [Mass/volume] in Serum or Egfqkl0362-55-68 08:48:00 Test Item Value Reference Range Interpretation Comments PTH, Intact (test code = 2731-8) 147 pg/mL 15-65 H [facility] Description: Parathyrin.intact [Mass/volume] in Serum or Awrhjq3052-05-81 08:48:00 Test Item Value Reference Range Interpretation Comments PTH, Intact (test code = 2731-8) 147 pg/mL 15-65 H [facility] Description: Parathyrin.intact [Mass/volume] in Serum or Ygwyvy2370-64-96 08:48:00 Test Item Value Reference Range Interpretation Comments PTH, Intact (test code = 2731-8) 147 pg/mL 15-65 H [facility] Description: Parathyrin.intact [Mass/volume] in Serum or Zhlxmn2181-15-33 08:48:00 Test Item Value Reference Range Interpretation Comments PTH, Intact (test code = 2731-8) 147 pg/mL 15-65 H [facility] Description: Parathyrin.intact [Mass/volume] in Serum or Ithylt2320-48-96 08:48:00 Test Item Value Reference Range Interpretation Comments PTH, Intact (test code = 2731-8) 147 pg/mL 15-65 H [facility] Description: Parathyrin.intact [Mass/volume] in Serum or Vixpvy1834-94-83 08:48:00 Test Item Value Reference Range Interpretation Comments PTH, Intact (test code = 2731-8) 147 pg/mL 15-65 H [facility] Description: Parathyrin.intact [Mass/volume] in Serum or [id number] 08:48:00 Test Item Value Reference Range Interpretation Comments PTH, Intact (test code = 2731-8) 147 pg/mL 15-65 H [facility] Description: Parathyrin.intact [Mass/volume] in Serum or [id number] 08:48:00 Test Item Value Reference Range Interpretation [...]

P erformed by:
[facility] ([place])

[facility] Description: Hemoglobin A1c/Hemoglobin.total in Blood 2020-10-30 05:01:00 Test Item Value Reference Range Interpretation Comments Hemoglobin A1c (test code 8.4 % 4.8-5.6 H = 4548-4) . Prediabetes: 5. 7 - 6.4 Diabetes : >6.4 Glycemic control for adults with diabetes: <7.0

P erformed by:
[facility] ()

[facility] Description: Hemoglobin A1c/Hemoglobin.total in Blood 2020-10-30 05:01:00 Test Item Value Reference Range Interpretation Comments Hemoglobin A1c (test code 8.4 % 4.8-5.6 H = 4548-4) . Prediabetes: 5. 7 - 6.4 Diabetes : >6.4 Glycemic control for adults with diabetes: <7.0

P erformed by:
[facility] ()

[facility] Description: Hemoglobin A1c/Hemoglobin.total in Blood 2020-10-30 05:01:00 Test Item Value Reference Range Interpretation Comments Hemoglobin A1c (test code 8.4 % 4.8-5.6 H = 4548-4) . Prediabetes: 5. 7 - 6.4 Diabetes : >6.4 Glycemic control for adults with diabetes: <7.0

P erformed by:
[facility] ()

[facility] Description: Microscopic [id number] 04:44:00 Test Item Value Reference Range Interpretation Comments WBC (test code = 5821-4) None seen 0-5 RBC (test code = 78226-7) None seen 0-2 Epithelial Cells (non renal) (test None seen 0-10 code = 5787-7) Epithelial Cells (renal) (test code = 48480-4) Casts (test code = 23668-0) None seen None seen Cast Type (test code = 49300-2) Crystals (test code = 5783-6) Crystal Type (test code = 5782-8) Mucus Threads (test code = 8247-9) Bacteria (test code = 5769-5) None seen None seen/Few Yeast (test code = 5822-2) Trichomonas (test code = 5813-1) Comment (test code = 30493-0) [facility] Description: Microscopic Wljbcskghpt1541-97-26 04:44:00 Test Item Value Reference Range Interpretation Comments WBC (test code = 5821-4) None seen 0-5 RBC (test code = 23504-6) None seen 0-2 Epithelial Cells (non renal) (test None seen 0-10 code = 5787-7) Epithelial Cells (renal) (test code = 72373-5) Casts (test code = 45607-4) None seen None seen Cast Type (test code = 58291-7) Crystals (test code = 5783-6) Crystal Type (test code = 5782-8) Mucus Threads (test code = 8247-9) Bacteria (test code = 5769-5) None seen None seen/Few Yeast (test code = 5822-2) Trichomonas (test code = 5813-1) Comment (test code = 82628-5) [facility] Description: Microscopic Ptggzkevwbz2891-54-81 04:44:00 Test Item Value Reference Range Interpretation Comments WBC (test code = 5821-4) None seen 0-5 RBC (test code = 80268-3) None seen 0-2 Epithelial Cells (non renal) (test None seen 0-10 code = 5787-7) Epithelial Cells (renal) (test code = 96842-5) Casts (test code = 84023-1) None seen None seen Cast Type (test code = 61777-5) Crystals (test code = 5783-6) Crystal Type (test code = 5782-8) Mucus Threads (test code = 8247-9) Bacteria (test code = 5769-5) None seen None seen/Few Yeast (test code = 5822-2) Trichomonas (test code = 5813-1) Comment (test code = 37028-8) Access [facility] Description: Microscopic [id number] 04:44:00 Test Item Value Reference Range Interpretation Comments WBC (test code = 5821-4) None seen 0-5 RBC (test code = 52849-4) None seen 0-2 Epithelial Cells (non renal) (test None seen 0-10 code = 5787-7) Epithelial Cells (renal) (test code = 02553-4) Casts (test code = 39024-4) None seen None seen Cast Type (test code = 17705-0) Crystals (test code = 5783-6) Crystal Type (test code = 5782-8) Mucus Threads (test code = 8247-9) Bacteria (test code = 5769-5) None seen None seen/Few Yeast (test code = 5822-2) Trichomonas (test code = 5813-1) Comment (test code = 62646-0) [facility] Description: Microscopic [id number] 04:44:00 Test Item Value Reference Range Interpretation Comments WBC (test code = 5821-4) None seen 0-5 RBC (test code = 90811-4) None seen 0-2 Epithelial Cells (non renal) (test None seen 0-10 code = 5787-7) Epithelial Cells (renal) (test code = 96442-8) Casts (test code = 48884-1) None seen None seen Cast Type (test code = 48741-5) Crystals (test code = 5783-6) Crystal Type (test code = 5782-8) Mucus Threads (test code = 8247-9) Bacteria (test code = 5769-5) None seen None seen/Few Yeast (test code = 5822-2) Trichomonas (test code = 5813-1) Comment (test code = 48641-5) [facility] Description: Microscopic [id number] 04:44:00 Test Item Value Reference Range Interpretation Comments WBC (test code = 5821-4) None seen 0-5 RBC (test code = 58349-7) None seen 0-2 Epithelial Cells (non renal) (test None seen 0-10 code = 5787-7) Epithelial Cells (renal) (test code = 37524-4) Casts (test code = 43637-2) None seen None seen Cast Type (test code = 87439-2) Crystals (test code = 5783-6) Crystal Type (test code = 5782-8) Mucus Threads (test code = 8247-9) Bacteria (test code = 5769-5) None seen None seen/Few Yeast (test code = 5822-2) Trichomonas (test code = 5813-1) Comment (test code = 00237-3) [facility] Description: Microscopic Gddeqmbbtuu8570-08-33 04:44:00 Test Item Value Reference Range Interpretation Comments WBC (test code = 5821-4) None seen 0-5 RBC (test code = 54335-7) None seen 0-2 Epithelial Cells (non renal) (test None seen 0-10 code = 5787-7) Epithelial Cells (renal) (test code = 43304-0) Casts (test code = 86753-0) None seen None seen Cast Type (test code = 60182-0) Crystals (test code = 5783-6) Crystal Type (test code = 5782-8) Mucus Threads (test code = 8247-9) Bacteria (test code = 5769-5) None seen None seen/Few Yeast (test code = 5822-2) Trichomonas (test code = 5813-1) Comment (test code = 90617-8) [facility] Description: Microscopic Cfngqbnrjal0304-15-36 04:44:00 Test Item Value Reference Range Interpretation Comments WBC (test code = 5821-4) None seen 0-5 RBC (test code = 67308-3) None seen 0-2 Epithelial Cells (non renal) (test None seen 0-10 code = 5787-7) Epithelial Cells (renal) (test code = 99399-7) Casts (test code = 78918-2) None seen None seen Cast Type (test code = 58693-2) Crystals (test code = 5783-6) Crystal Type (test code = 5782-8) Mucus Threads (test code = 8247-9) Bacteria (test code = 5769-5) None seen None seen/Few Yeast (test code = 5822-2) Trichomonas (test code = 5813-1) Comment (test code = 47772-3) [facility] Description: Microscopic Jraybedhsxo2049-93-13 04:44:00 Test Item Value Reference Range Interpretation Comments WBC (test code = 5821-4) None seen 0-5 RBC (test code = 67213-2) None seen 0-2 Epithelial Cells (non renal) (test None seen 0-10 code = 5787-7) Epithelial Cells (renal) (test code = 24947-9) Casts (test code = 43224-6) None seen None seen Cast Type (test code = 19248-4) Crystals (test code = 5783-6) Crystal Type (test code = 5782-8) Mucus Threads (test code = 8247-9) Bacteria (test code = 5769-5) None seen None seen/Few Yeast (test code = 5822-2) Trichomonas (test code = 5813-1) Comment (test code = 51431-9) [facility] Description: Microscopic Hltaenmulhd0392-54-93 04:44:00 Test Item Value Reference Range Interpretation Comments WBC (test code = 5821-4) None seen 0-5 RBC (test code = 66782-3) None seen 0-2 Epithelial Cells (non renal) (test None seen 0-10 code = 5787-7) Epithelial Cells (renal) (test code = 20137-4) Casts (test code = 78915-5) None seen None seen Cast Type (test code = 86463-4) Crystals (test code = 5783-6) Crystal Type (test code = 5782-8) Mucus Threads (test code = 8247-9) Bacteria (test code = 5769-5) None seen None seen/Few Yeast (test code = 5822-2) Trichomonas (test code = 5813-1) Comment (test code = 39779-9) [facility] Description: Microscopic Ewceaeobyjf5782-11-92 04:44:00 Test Item Value Reference Range Interpretation Comments WBC (test code = 5821-4) None seen 0-5 RBC (test code = 67736-6) None seen 0-2 Epithelial Cells (non renal) (test None seen 0-10 code = 5787-7) Epithelial Cells (renal) (test code = 28556-3) Casts (test code = 85118-6) None seen None seen Cast Type (test code = 54290-5) Crystals (test code = 5783-6) Crystal Type (test code = 5782-8) Mucus Threads (test code = 8247-9) Bacteria (test code = 5769-5) None seen None seen/Few Yeast (test code = 5822-2) Trichomonas (test code = 5813-1) Comment (test code = 67470-6) [facility]: Microscopic Oxvlrxxbdcb7854-89-27 04:44:00 Test Item Value Reference Range Interpretation Comments WBC (test code = 5821-4) None seen 0-5 RBC (test code = 84200-3) None seen 0-2 Epithelial Cells (non renal) (test None seen 0-10 code = 5787-7) Epithelial Cells (renal) (test code = 40615-5) Casts (test code = 78725-0) None seen None seen Cast Type (test code = 66723-9) Crystals (test code = 5783-6) Crystal Type (test code = 5782-8) Mucus Threads (test code = 8247-9) Bacteria (test code = 5769-5) None seen None seen/Few Yeast (test code = 5822-2) Trichomonas (test code = 5813-1) Comment (test code = 17850-1) [facility], [id number] 04:43:00 Test Item Value Reference Range Interpretation Comments Specific [place]oug[place] (test 1.012 1.005-1.030 code = 2965-2) pH (test code = 5.5 5.0-7.5 5803-2) Urine-Color (test code Yellow Yellow = 5778-6) Appearance (test code Clear Clear = 5767-9) WBC Esterase (test Negative Negative code = 5799-2) Protein (test code = 4+ Negative/Trace A 97002-6) Glucose (test code = Trace Negative A 2349-9) Ketones (test code = Negative Negative 2514-8) Occult Blood (test Trace Negative A code = 5794-3) Bilirubin (test code = Negative Negative 5770-3) Urobilinogen,Semi-Qn 0.2 mg/dL 0.2-1.0 (test code = 21373-8) Nitrite, Urine (test Negative Negative code = 5802-4) Microscopic See below: Microscopic was Examination (test code indic ated and was = 22027-1) performed.

P erformed by:
[facility] [place] ()

[employer] [facility] Description: Urinalysis, [id number] 04:43:00 Test Item Value Reference Range Interpretation Comments Specific Rougon (test 1.012 1.005-1.030 code = 2965-2) pH (test code = 5.5 5.0-7.5 5803-2) Urine-Color (test code Yellow Yellow = 5778-6) Appearance (test code Clear Clear = 5767-9) WBC Esterase (test Negative Negative code = 5799-2) Protein (test code = 4+ Negative/Trace A 25818-1) Glucose (test code = Trace Negative A 2349-9) Ketones (test code = Negative Negative 2514-8) Occult Blood (test Trace Negative A code = 5794-3) Bilirubin (test code = Negative Negative 5770-3) Urobilinogen,Semi-Qn 0.2 mg/dL 0.2-1.0 (test code = 65086-0) Nitrite, Urine (test Negative Negative code = 5802-4) Microscopic See below: Microscopic was Examination (test code indic ated and was = 95866-7) performed.

P erformed by:
[facility] [place] ()

[employer] [facility] Description: Urinalysis, [id number] 04:43:00 Test Item Value Reference Range Interpretation Comments Specific [place]ougon (test 1.012 1.005-1.030 code = 2965-2) pH (test code = 5.5 5.0-7.5 5803-2) Urine-Color (test code Yellow Yellow = 5778-6) Appearance (test code Clear Clear = 5767-9) WBC Esterase (test Negative Negative code = 5799-2) Protein (test code = 4+ Negative/Trace A 60313-8) Glucose (test code = Trace Negative A 2349-9) Ketones (test code = Negative Negative 2514-8) Occult Blood (test Trace Negative A code = 5794-3) Bilirubin (test code = Negative Negative 5770-3) Urobilinogen,Semi-Qn 0.2 mg/dL 0.2-1.0 (test code = 64067-2) Nitrite, Urine (test Negative Negative code = 5802-4) Microscopic See below: Microscopic was Examination (test code indic ated and was = 90447-1) performed.

P erformed by:
[facility] ()

[employer] [facility] Description: Urinalysis, [id number] 04:43:00 Test Item Value Reference Range Interpretation Comments Specific [place]ougon (test 1.012 1.005-1.030 code = 2965-2) pH (test code = 5.5 5.0-7.5 5803-2) Urine-Color (test code Yellow Yellow = 5778-6) Appearance (test code Clear Clear = 5767-9) WBC Esterase (test Negative Negative code = 5799-2) Protein (test code = 4+ Negative/Trace A 21112-2) Glucose (test code = Trace Negative A 2349-9) Ketones (test code = Negative Negative 2514-8) Occult Blood (test Trace Negative A code = 5794-3) Bilirubin (test code = Negative Negative 5770-3) Urobilinogen,Semi-Qn 0.2 mg/dL 0.2-1.0 (test code = 40407-3) Nitrite, Urine (test Negative Negative code = 5802-4) Microscopic See below: Microscopic was Examination (test code indic ated and was = 25532-8) performed.

P erformed by:
[facility] ()

[employer] [facility] Description: Urinalysis, [id number] 04:43:00 Test Item Value Reference Range Interpretation Comments Specific [place]on (test 1.012 1.005-1.030 code = 2965-2) pH (test code = 5.5 5.0-7.5 5803-2) Urine-Color (test code Yellow Yellow = 5778-6) Appearance (test code Clear Clear = 5767-9) WBC Esterase (test Negative Negative code = 5799-2) Protein (test code = 4+ Negative/Trace A 39057-2) Glucose (test code = Trace Negative A 2349-9) Ketones (test code = Negative Negative 2514-8) Occult Blood (test Trace Negative A code = 5794-3) Bilirubin (test code = Negative Negative 5770-3) Urobilinogen,Semi-Qn 0.2 mg/dL 0.2-1.0 (test code = 12191-2) Nitrite, Urine (test Negative Negative code = 5802-4) Microscopic See below: Microscopic was Examination (test code indic ated and was = 14032-0) performed.

P erformed by:
Ray Kaur ()

[facility] Description: Urinalysis, [id number] 04:43:00 Test Item Value Reference Range Interpretation Comments Specific Rougon (test 1.012 1.005-1.030 code = 2965-2) pH (test code = 5.5 5.0-7.5 5803-2) Urine-Color (test code Yellow Yellow = 5778-6) Appearance (test code Clear Clear = 5767-9) WBC Esterase (test Negative Negative code = 5799-2) Protein (test code = 4+ Negative/Trace A 24374-9) Glucose (test code = Trace Negative A 2349-9) Ketones (test code = Negative Negative 2514-8) Occult Blood (test Trace Negative A code = 5794-3) Bilirubin (test code = Negative Negative 5770-3) Urobilinogen,Semi-Qn 0.2 mg/dL 0.2-1.0 (test code = 07583-7) Nitrite, Urine (test Negative Negative code = 5802-4) Microscopic See below: Microscopic was Examination (test code indic ated and was = 54663-9) performed.

P erformed by:
Ray Kaur ()

[facility] Description: Urinalysis, [id number] 04:43:00 Test Item Value Reference Range Interpretation Comments Specific Rougon (test 1.012 1.005-1.030 code = 2965-2) pH (test code = 5.5 5.0-7.5 5803-2) Urine-Color (test code Yellow Yellow = 5778-6) Appearance (test code Clear Clear = 5767-9) WBC Esterase (test Negative Negative code = 5799-2) Protein (test code = 4+ Negative/Trace A 18652-1) Glucose (test code = Trace Negative A 2349-9) Ketones (test code = Negative Negative 2514-8) Occult Blood (test Trace Negative A code = 5794-3) Bilirubin (test code = Negative Negative 5770-3) Urobilinogen,Semi-Qn 0.2 mg/dL 0.2-1.0 (test code = 83514-1) Nitrite, Urine (test Negative Negative code = 5802-4) Microscopic See below: Microscopic was Examination (test code indic atecatrachito and was = 27497-5) performed.

P erformed by:
[facility] [place] ()

[facility] Description: Urinalysis, [id number] 04:43:00 Test Item Value Reference Range Interpretation Comments Specific Rougon (test 1.012 1.005-1.030 code = 2965-2) pH (test code = 5.5 5.0-7.5 5803-2) Urine-Color (test code Yellow Yellow = 5778-6) Appearance (test code Clear Clear = 5767-9) WBC Esterase (test Negative Negative code = 5799-2) Protein (test code = 4+ Negative/Trace A 39962-8) Glucose (test code = Trace Negative A 2349-9) Ketones (test code = Negative Negative 2514-8) Occult Blood (test Trace Negative A code = 5794-3) Bilirubin (test code = Negative Negative 5770-3) Urobilinogen,Semi-Qn 0.2 mg/dL 0.2-1.0 (test code = 46727-1) Nitrite, Urine (test Negative Negative code = 5802-4) Microscopic See below: Microscopic was Examination (test code indic ated and was = 21785-1) performed.

P erformed by:
[facility] [place] ()

[facility] Description: Urinalysis, [id number] 04:43:00 Test Item Value Reference Range Interpretation Comments Specific Rougon (test 1.012 1.005-1.030 code = 2965-2) pH (test code = 5.5 5.0-7.5 5803-2) Urine-Color (test code Yellow Yellow = 5778-6) Appearance (test code Clear Clear = 5767-9) WBC Esterase (test Negative Negative code = 5799-2) Protein (test code = 4+ Negative/Trace A 67701-1) Glucose (test code = Trace Negative A 2349-9) Ketones (test code = Negative Negative 2514-8) Occult Blood (test Trace Negative A code = 5794-3) Bilirubin (test code = Negative Negative 5770-3) Urobilinogen,Semi-Qn 0.2 mg/dL 0.2-1.0 (test code = 65294-1) Nitrite, Urine (test Negative Negative code = 5802-4) Microscopic See below: Microscopic was Examination (test code indic ated and was = 12441-0) performed.

P erformed by:
[facility] [place] ()

[facility] Description: Urinalysis, [id number] 04:43:00 Test Item Value Reference Range Interpretation Comments Specific Rougon (test 1.012 1.005-1.030 code = 2965-2) pH (test code = 5.5 5.0-7.5 5803-2) Urine-Color (test code Yellow Yellow = 5778-6) Appearance (test code Clear Clear = 5767-9) WBC Esterase (test Negative Negative code = 5799-2) Protein (test code = 4+ Negative/Trace A 32462-3) Glucose (test code = Trace Negative A 2349-9) Ketones (test code = Negative Negative 2514-8) Occult Blood (test Trace Negative A code = 5794-3) Bilirubin (test code = Negative Negative 5770-3) Urobilinogen,Semi-Qn 0.2 mg/dL 0.2-1.0 (test code = 31439-9) Nitrite, Urine (test Negative Negative code = 5802-4) Microscopic See below: Microscopic was Examination (test code indic ated and was = 09429-1) performed.

P erformed by:
[facility] [place] ()

[employer] [facility] Description: Urinalysis, [id number] 04:43:00 Test Item Value Reference Range Interpretation Comments Specific Rougon (test 1.012 1.005-1.030 code = 2965-2) pH (test code = 5.5 5.0-7.5 5803-2) Urine-Color (test code Yellow Yellow = 5778-6) Appearance (test code Clear Clear = 5767-9) WBC Esterase (test Negative Negative code = 5799-2) Protein (test code = 4+ Negative/Trace A 34698-1) Glucose (test code = Trace Negative A 2349-9) Ketones (test code = Negative Negative 2514-8) Occult Blood (test Trace Negative A code = 5794-3) Bilirubin (test code = Negative Negative 5770-3) Urobilinogen,Semi-Qn 0.2 mg/dL 0.2-1.0 (test code = 50079-8) Nitrite, Urine (test Negative Negative code = 5802-4) Microscopic See below: Microscopic was Examination (test code indic ated and was = 49269-1) performed.

P erformed by:
[facility] ()

[facility] Description: Urinalysis, [id number] 04:43:00 Test Item Value Reference Range Interpretation Comments Specific Rougon (test 1.012 1.005-1.030 code = 2965-2) pH (test code = 5.5 5.0-7.5 5803-2) Urine-Color (test code Yellow Yellow = 5778-6) Appearance (test code Clear Clear = 5767-9) WBC Esterase (test Negative Negative code = 5799-2) Protein (test code = 4+ Negative/Trace A 51694-6) Glucose (test code = Trace Negative A 2349-9) Ketones (test code = Negative Negative 4104-8) Occult Blood (test Trace Negative A code = 5794-3) Bilirubin (test code = Negative Negative 5770-3) Urobilinogen,Semi-Qn 0.2 mg/dL 0.2-1.0 (test code = 58613-1) Nitrite, Urine (test Negative Negative code = 5802-4) Microscopic See below: Microscopic was Examination (test code indic ated and was = 80010-3) performed.

P erformed by:
[facility] ()

[facility] Description: Urinalysis, [id number] 04:43:00 Microscopic Examination[facility] Description: Urinalysis, Complete 2020-10-30 04:43:00Microscopic Examination[facility] Description: Urinalysis, [id number] 04:43:00Microscopic ExaminationAccess [facility] Description: Urinalysis, [id number] 04:43:00Microscopic Examination [facility] Description: Urinalysis, Kpcbcmqg3541-15-26 04:43:00 Microscopic Examination[facility] Description: Urinalysis, Complete 2020-10-30 04:43:00Microscopic Examination[facility] Description: Urinalysis, [id number] 04:43:00Microscopic Examination[facility] Description: Urinalysis, Bolgcvgd2027-38-73 04:43:00Microscopic Examination [facility] Description: Urinalysis, Ityhzkin4028-65-86 04:43:00 Microscopic Examination[facility] Description: Urinalysis, Complete 2020-10-30 04:43:00Microscopic Examination[facility] Description: Urinalysis, Gimmjsyt2908-04-96 04:43:00Microscopic ExaminationAccess [facility] Description: Urinalysis, Zrvhfnex9943-59-00 04:43:00Microscopic Examination [facility] Description: 25-hydroxyvitamin D3 [Mass/volume] in Serum or [id number] 04:26:00 Test Item Value Reference Range Interpretation Comments Vitamin D, 12.0 ng/mL 30.0-100.0 L Vitamin D defic iency has 25-Hydroxy (test been define d by the code = 72441-9) [place] [employer] and an Endocrine So ciety practice guidel ine as alevel of serum 25-OH vitamin D less than 20 ng/mL (1,2).The Endocrine Society went on to further define vitamin Dinsufficiency as a level between 21 and 29 ng/mL (2).1. IOM (Ins titute of Medicine). 2010 . Dietary reference int akes for calcium and D. [place]: [employer] .2. Ela Oliveros, Stephane EMERSON, et al. Evaluatio n, treatment, and prevention of vitamin D deficiency: an Endocrine Society clinica l practice guideline. EM. 2010; 96(7):191-.< br/>
P erformed by:
[facility] ([place])

[facility] Description: 25-hydroxyvitamin D3 [Mass/volume] in Serum or [id number] 04:26:00 Test Item Value Reference Range Interpretation Comments Vitamin D, 12.0 ng/mL 30.0-100.0 L Vitamin D defic iency has 25-Hydroxy (test been define d by the code = 24381-5) [place] [employer] and an Endocrine So [facility] practice guidel ine as alevel of serum 25-OH vitamin D less than 20 ng/mL (1,2).The Endocrine Society went on to further define vitamin Dinsufficiency as a level between 21 and 29 ng/mL (2).1. IOM (Ins titute of Medicine). 2010 . Dietary reference int akes for calcium and D. [place]: [employer] .2. Ela Oliveros, Stephane EMERSON, et al. Evaluatio n, treatment, and prevention of vitamin D deficiency: an Endocrine Society clinica l practice guideline. EM. 2010; 96(7):191-.< br/>
P erformed by:
[facility] ([place])

[facility] Description: 25-hydroxyvitamin D3 [Mass/volume] in Serum or [id number] 04:26:00 Test Item Value Reference Range Interpretation Comments Vitamin D, 12.0 ng/mL 30.0-100.0 L Vitamin D defic iency has 25-Hydroxy (test been define d by the code = 28434-2) [place] [employer] and an Endocrine So ciety practice guidel ine as alevel of serum 25-OH vitamin D less than 20 ng/mL (1,2).The Endocrine Society went on to further define vitamin Dinsufficiency as a level between 21 and 29 ng/mL (2).1. IOM (Ins titute of Medicine). 2010 . Dietary reference int akes for calcium and D. [place]: [employer] .2. Ela Oliveros, Chichi-Augie EMERSON, et al. Evaluatio n, treatment, and prevention of vitamin D deficiency: an Endocrine Society clinica l practice guideline. [place] EM. 2010; 96(4):1911-30.< br/>
P erformed by:
[facility] [place] ([place])

[facility]: 25-hydroxyvitamin D3 [Mass/volume] in Serum or [id number] 04:26:00 Test Item Value Reference Range Interpretation Comments Vitamin D, 12.0 ng/mL 30.0-100.0 L Vitamin D defic iency has 25-Hydroxy (test been define d by the code = 38963-5) [place] [employer] and an Endocrine So [facility] practice guidel ine as alevel of serum 25-OH vitamin D less than 20 ng/mL (1,2).The Endocrine Society went on to further define vitamin Dinsufficiency as a level between 21 and 29 ng/mL (2).1. IOM (Ins titute of Medicine). 2010 . Dietary reference int akes for calcium and D. [place]: [employer] .2. Ela Oliveros, Chichi-Augie EMERSON, et al. Evaluatio n, treatment, and prevention of vitamin D deficiency: an Endocrine Society clinica l practice guideline. [place] EM. 2010; 96(7):1911-30.< br/>
P erformed by:
[facility] ([place])

[facility] Description: 25-hydroxyvitamin D3 [Mass/volume] in Serum or [id number] 04:26:00 Test Item Value Reference Range Interpretation Comments Vitamin D, 12.0 ng/mL 30.0-100.0 L Vitamin D defic iency has 25-Hydroxy (test been define d by the code = 69620-2) [place] [employer] and an Endocrine So [facility] practice guidel ine as alevel of serum 25-OH vitamin D less than 20 ng/mL (1,2).The Endocrine Society went on to further define vitamin Dinsufficiency as a level between 21 and 29 ng/mL (2).1. IOM (Ins titute of Medicine). 2010 . Dietary reference int akes for calcium and D. [place]: [employer] .2. Ela Oliveros, Stephane EMERSON, et al. Evaluatio n, treatment, and prevention of vitamin D deficiency: an Endocrine Society clinica l practice guideline. EM. 2010; 96(7):1911-30.< br/>
P erformed by:
[facility] ([place])

[facility] Description: 25-hydroxyvitamin D3 [Mass/volume] in Serum or [id number] 04:26:00 Test Item Value Reference Range Interpretation Comments Vitamin D, 12.0 ng/mL 30.0-100.0 L Vitamin D defic iency has 25-Hydroxy (test been define d by the code = 50478-2) [place] [employer] and an Endocrine So [facility] guidel ine as alevel of serum 25-OH vitamin D less than 20 ng/mL (1,2).The Endocrine Society went on to further define vitamin Dinsufficiency as a level between 21 and 29 ng/mL (2).1. IOM (Ins titute of Medicine). 2010 . Dietary reference int akes for calcium and D. [place]: [employer] .2. Ela Oliveros, Stephane EMERSON, et al. Evaluatio n, treatment, and prevention of vitamin D deficiency: an Endocrine Society clinica l practice guideline. EM. 2010; 96(7):1911-30.< br/>
P erformed by:
[facility] ([place])

[facility] Description: 25-hydroxyvitamin D3 [Mass/volume] in Serum or [id number] 04:26:00 Test Item Value Reference Range Interpretation Comments Vitamin D, 12.0 ng/mL 30.0-100.0 L Vitamin D defic iency has 25-Hydroxy (test been define d by the code = 31511-3) [place] [employer] and an Endocrine So [facility] practice guidel ine as alevel of serum 25-OH vitamin D less than 20 ng/mL (1,2).The Endocrine Society went on to further define vitamin Dinsufficiency as a level between 21 and 29 ng/mL (2).1. IOM (Ins titute of Medicine). 2010 . Dietary reference int akes for calcium and D. [place]: [employer] .2. Dileep AREVALO, Ela SANTA, Stephane EMERSON, et al. Evaluatio n, treatment, and prevention of vitamin D deficiency: an Endocrine Society clinica l practice guideline. [facility]. 2010; 96(7):1911-30.< br/>
P erformed by:
[facility] [place] ([place])

[facility] Description: 25-hydroxyvitamin D3 [Mass/volume] in Serum or [id number] 04:26:00 Test Item Value Reference Range Interpretation Comments Vitamin D, 12.0 ng/mL 30.0-100.0 L Vitamin D defic iency has 25-Hydroxy (test been define d by the code = 53989-1) [place] [employer] and an Endocrine So [facility] practice guidel ine as alevel of serum 25-OH vitamin D less than 20 ng/mL (1,2).The Endocrine Society went on to further define vitamin Dinsufficiency as a level between 21 and 29 ng/mL (2).1. IOM (Ins titute of Medicine). 2010 . Dietary reference int akes for calcium and D. [facility]: [employer] .2. Ela Oliveros, Stephane EMERSON, et al. Evaluatio n, treatment, and prevention of vitamin D deficiency: an Endocrine Society clinica l practice guideline. EM. 2010; 96(7):191-.< br/>
P erformed by:
[facility] K[facility] ([place])

[facility] Description: 25-hydroxyvitamin D3 [Mass/volume] in Serum or [id number] 04:26:00 Test Item Value Reference Range Interpretation Comments Vitamin D, 12.0 ng/mL 30.0-100.0 L Vitamin D defic iency has 25-Hydroxy (test been define d by the code = 23600-0) [place] [employer] and an Endocrine So [facility] practice guidel ine as alevel of serum 25-OH vitamin D less than 20 ng/mL (1,2).The Endocrine Society went on to further define vitamin Dinsufficiency as a level between 21 and 29 ng/mL (2).1. IOM (Ins titute of Medicine). 2010 . Dietary reference int akes for calcium and D. [facility]: [employer] .2. Ela Oliveros, Stephane EMERSON, et al. Evaluatio n, treatment, and prevention of vitamin D deficiency: an Endocrine Society clinica l practice guideline. EM. 2010; 96(7):191-30.< br/>
P erformed by:
[facility] Kaur (HD)

[facility] Description: 25-hydroxyvitamin D3 [Mass/volume] in Serum or [id number] 04:26:00 Test Item Value Reference Range Interpretation Comments Vitamin D, 12.0 ng/mL 30.0-100.0 L Vitamin D defic iency has 25-Hydroxy (test been define d by the code = 68565-7) [place] [employer] and an Endocrine So ciety practice guidel ine as alevel of serum 25-OH vitamin D less than 20 ng/mL (1,2).The Endocrine Society went on to further define vitamin Dinsufficiency as a level between 21 and 29 ng/mL (2).1. IOM (Ins titute of Medicine). 2010 . Dietary reference int akes for calcium and D. [facility]: [employer] .2. Ela Oliveros, Stephane EMERSON, et al. Evaluatio n, treatment, and prevention of vitamin D deficiency: an Endocrine Society clinica l practice guideline. [place] EM. 2010; 96(7):1911-30.< br/>
P erformed by:
[facility] [place] [facility] ([place])

[facility] Description: 25-hydroxyvitamin D3 [Mass/volume] in Serum or [id number] 04:26:00 Test Item Value Reference Range Interpretation Comments Vitamin D, 12.0 ng/mL 30.0-100.0 L Vitamin D defic iency has 25-Hydroxy (test been define d by the code = 36263-0) [place] [employer] and an Endocrine So [facility] practice guidel ine as alevel of serum 25-OH vitamin D less than 20 ng/mL (1,2).The Endocrine Society went on to further define vitamin Dinsufficiency as a level between 21 and 29 ng/mL (2).1. IOM (Ins titute of Medicine). 2010 . Dietary reference int akes for calcium and D. [facility]: [employer] .2. Ela Oliveros, Stephane EMERSON, et al. Evaluatio n, treatment, and prevention of vitamin D deficiency: an Endocrine Society clinica l practice guideline. [place] EM. 2010; 96(7):1911-30.< br/>
P erformed by:
[facility] K[facility] (HD)

[facility] Description: 25-hydroxyvitamin D3 [Mass/volume] in Serum or [id number] 04:26:00 Test Item Value Reference Range Interpretation Comments Vitamin D, 12.0 ng/mL 30.0-100.0 L Vitamin D defic iency has 25-Hydroxy (test been define d by the code = 65660-9) [place] [employer] and an Endocrine So ciety practice guidel ine as alevel of serum 25-OH vitamin D less than 20 ng/mL (1,2).The Endocrine Society went on to further define vitamin Dinsufficiency as a level between 21 and 29 ng/mL (2).1. IOM (Ins [facility] of Medicine). 2010 . Dietary reference int akes for calcium and D. [place]: [employer] .2. Dileep MF, Ela SANTA, Stephane blake EMERSON, et al. Evaluatio n, treatment, and prevention of vitamin D deficiency: an Endocrine Society clinica l practice guideline. [place] EM. 2010; 96(4):1911-30.< br/>
P erformed by:
[facility] [place] ()

[facility] Description: CBC With Differential/[id number] 04:00:00 Test Item Value Reference Range Interpretation [...] (test 1 % Not Estab. code = 26440-1) Immature Grans (Abs) (test code 0.0 x10E3/uL 0.0-0.1 = 83879-9) NRBC (test code = 94396-8) Hematology Comments: (test code = 08560-6) [facility] Description: CBC With Differential/Negeoreu7588-06-48 04:00:00 Test Item Value Reference Range Interpretation [...] (test 1 % Not Estab. code = 26472-2) Immature Grans (Abs) (test code 0.0 x10E3/uL 0.0-0.1 = 17029-5) NRBC (test code = 44630-5) Hematology Comments: (test code = 60280-6) [facility] Description: CBC With Differential/Zybslnpt4669-10-89 04:00:00 Test Item Value Reference Range Interpretation [...] (test 1 % Not Estab. code = 88760-9) Immature Grans (Abs) (test code 0.0 x10E3/uL 0.0-0.1 = 37235-8) NRBC (test code = 78476-4) Hematology Comments: (test code = 13116-9) [facility] Description: CBC With Differential/Ikdpwfcs4941-26-05 04:00:00 Test Item Value Reference Range Interpretation [...] (test 1 % Not Estab. code = 02374-5) Immature Grans (Abs) (test code 0.0 x10E3/uL 0.0-0.1 = 78743-1) NRBC (test code = 11020-5) Hematology Comments: (test code = 24867-5) [facility] Description: CBC With Differential/Uyczwvtb1805-05-11 04:00:00 Test Item Value Reference Range Interpretation [...] (test 1 % Not Estab. code = 79338-3) Immature Grans (Abs) (test code 0.0 x10E3/uL 0.0-0.1 = 06293-8) NRBC (test code = 11723-9) Hematology Comments: (test code = 70254-0) [facility] Description: CBC With Differential/Zthfujmg8550-83-80 04:00:00 Test Item Value Reference Range Interpretation [...] (test 1 % Not Estab. code = 85864-2) Immature Grans (Abs) (test code 0.0 x10E3/uL 0.0-0.1 = 21125-0) NRBC (test code = 68554-2) Hematology Comments: (test code = 83357-8) [facility] Description: CBC With Differential/Qvzjohvg0810-62-91 04:00:00 Test Item Value Reference Range Interpretation [...] (test 1 % Not Estab. code = 99735-1) Immature Grans (Abs) (test code 0.0 x10E3/uL 0.0-0.1 = 80366-5) NRBC (test code = 36442-3) Hematology Comments: (test code = 07875-4) [facility] Description: CBC With Differential/Hnnockyq6421-53-68 04:00:00 Test Item Value Reference Range Interpretation [...] (test 1 % Not Estab. code = 12371-2) Immature Grans (Abs) (test code 0.0 x10E3/uL 0.0-0.1 = 08564-3) NRBC (test code = 26071-4) Hematology Comments: (test code = 78144-5) [facility] Description: CBC With Differential/Octupggf2376-85-94 04:00:00 Test Item Value Reference Range Interpretation [...] (test 1 % Not Estab. code = 67319-2) Immature Grans (Abs) (test code 0.0 x10E3/uL 0.0-0.1 = 79026-9) NRBC (test code = 85153-0) Hematology Comments: (test code = 17528-5) [facility] Description: CBC With Differential/Fsmzwihs9820-10-15 04:00:00 Test Item Value Reference Range Interpretation [...] (test 1 % Not Estab. code = 92585-8) Immature Grans (Abs) (test code 0.0 x10E3/uL 0.0-0.1 = 25216-9) NRBC (test code = 11427-0) Hematology Comments: (test code = 01725-3) [facility] Description: CBC With Differential/Ycgvttyd3906-51-43 04:00:00 Test Item Value Reference Range Interpretation [...] (test 1 % Not Estab. code = 52811-0) Immature Grans (Abs) (test code 0.0 x10E3/uL 0.0-0.1 = 57694-2) NRBC (test code = 92157-7) Hematology Comments: (test code = 06436-6) [facility] Description: CBC With Differential/Wrrbvpqq8323-91-04 04:00:00 Test Item Value Reference Range Interpretation [...] (test 1 % Not Estab. code = 43064-3) Immature Grans (Abs) (test code 0.0 x10E3/uL 0.0-0.1 = 29606-2) NRBC (test code = 00285-4) Hematology Comments: (test code = 71134-9) [facility] Description: Magnesium [Mass/volume] in Serum or Plasma 2020-10-30 02:31:00 Test Item Value Reference Range Interpretation Comments Magnesium (test code = 16601-1) 1.6 mg/dL 1.6-2.3 [facility] Description: Magnesium [Mass/volume] in Serum or Plasma 2020-10-30 02:31:00 Test Item Value Reference Range Interpretation Comments Magnesium (test code = 84976-5) 1.6 mg/dL 1.6-2.3 [facility] Description: Magnesium [Mass/volume] in Serum or Plasma 2020-10-30 02:31:00 Test Item Value Reference Range Interpretation Comments Magnesium (test code = 41001-5) 1.6 mg/dL 1.6-2.3 [facility] Description: Magnesium [Mass/volume] in Serum or Plasma 2020-10-30 02:31:00 Test Item Value Reference Range Interpretation Comments Magnesium (test code = 13493-4) 1.6 mg/dL 1.6-2.3 [facility] Description: Magnesium [Mass/volume] in Serum or Plasma 2020-10-30 02:31:00 Test Item Value Reference Range Interpretation Comments Magnesium (test code = 42873-0) 1.6 mg/dL 1.6-2.3 [facility] Description: Magnesium [Mass/volume] in Serum or Plasma 2020-10-30 02:31:00 Test Item Value Reference Range Interpretation Comments Magnesium (test code = 87507-0) 1.6 mg/dL 1.6-2.3 [facility] Description: Magnesium [Mass/volume] in Serum or Plasma 2020-10-30 02:31:00 Test Item Value Reference Range Interpretation Comments Magnesium (test code = 19791-7) 1.6 mg/dL 1.6-2.3 [facility] Description: Magnesium [Mass/volume] in Serum or Plasma 2020-10-30 02:31:00 Test Item Value Reference Range Interpretation Comments Magnesium (test code = 57762-8) 1.6 mg/dL 1.6-2.3 [facility] Description: Magnesium [Mass/volume] in Serum or Plasma 2020-10-30 02:31:00 Test Item Value Reference Range Interpretation Comments Magnesium (test code = 56662-0) 1.6 mg/dL 1.6-2.3 [facility] Description: Magnesium [Mass/volume] in Serum or Plasma 2020-10-30 02:31:00 Test Item Value Reference Range Interpretation Comments Magnesium (test code = 36042-3) 1.6 mg/dL 1.6-2.3 [facility] Description: Magnesium [Mass/volume] in Serum or Plasma 2020-10-30 02:31:00 Test Item Value Reference Range Interpretation Comments Magnesium (test code = 55985-7) 1.6 mg/dL 1.6-2.3 [facility] Description: Magnesium [Mass/volume] in Serum or Plasma 2020-10-30 02:31:00 Test Item Value Reference Range Interpretation Comments Magnesium (test code = 93472-5) 1.6 mg/dL 1.6-2.3 [employer] Description: Lipid [id number] 02:17:00 Test Item Value Reference Range Interpretation Comments Cholesterol, Total (test code = 167 mg/dL 978-099 5278-3) Triglycerides (test code = 2571-8) 60 mg/dL 0-149 HDL Cholesterol (test code = 33 mg/dL >39 L 2085-9) VLDL Cholesterol Renuka (test code = 12 mg/dL 5-40 02263-8) LDL Chol Calc (NIH) (test code = 122 mg/dL 0-99 H 32031-2) Comment: (test code = 03146-6) [facility] Description: Lipid [id number] 02:17:00 Test Item Value Reference Range Interpretation Comments Cholesterol, Total (test code = 167 mg/dL 562-891 4047-3) Triglycerides (test code = 2571-8) 60 mg/dL 0-149 HDL Cholesterol (test code = 33 mg/dL >39 L 2085-9) VLDL Cholesterol Renuka (test code = 12 mg/dL 5-40 04695-9) LDL Chol Calc (NIH) (test code = 122 mg/dL 0-99 H 77547-9) Comment: (test code = 56689-1) [facility] Description: Lipid Puvjj1158-39-82 02:17:00 Test Item Value Reference Range Interpretation Comments Cholesterol, Total (test code = 167 mg/dL 717-221 4277-3) Triglycerides (test code = 2571-8) 60 mg/dL 0-149 HDL Cholesterol (test code = 33 mg/dL >39 L 2085-9) VLDL Cholesterol Renuka (test code = 12 mg/dL 5-40 49913-6) LDL Chol Calc (NIH) (test code = 122 mg/dL 0-99 H 16840-6) Comment: (test code = 07066-2) [facility] Description: Lipid [id number] 02:17:00 Test Item Value Reference Range Interpretation Comments Cholesterol, Total (test code = 167 mg/dL 781-917 7372-3) Triglycerides (test code = 2571-8) 60 mg/dL 0-149 HDL Cholesterol (test code = 33 mg/dL >39 L 2085-9) VLDL Cholesterol Renuka (test code = 12 mg/dL 5-40 36533-5) LDL Chol Calc (NIH) (test code = 122 mg/dL 0-99 H 56825-4) Comment: (test code = 78032-0) [facility] Description: Lipid [id number] 02:17:00 Test Item Value Reference Range Interpretation Comments Cholesterol, Total (test code = 167 mg/dL 382-621 2995-3) Triglycerides (test code = 2571-8) 60 mg/dL 0-149 HDL Cholesterol (test code = 33 mg/dL >39 L 2085-9) VLDL Cholesterol Renuka (test code = 12 mg/dL 5-40 90702-6) LDL Chol Calc (NIH) (test code = 122 mg/dL 0-99 H 77787-4) Comment: (test code = 96847-0) [employer] Description: Lipid [id number] 02:17:00 Test Item Value Reference Range Interpretation Comments Cholesterol, Total (test code = 167 mg/dL 114-799 1010-3) Triglycerides (test code = 2571-8) 60 mg/dL 0-149 HDL Cholesterol (test code = 33 mg/dL >39 L 2085-9) VLDL Cholesterol Renuka (test code = 12 mg/dL 5-40 03612-0) LDL Chol Calc (NIH) (test code = 122 mg/dL 0-99 H 58560-8) Comment: (test code = 29396-9) [facility] Description: Lipid [id number] 02:17:00 Test Item Value Reference Range Interpretation Comments Cholesterol, Total (test code = 167 mg/dL 281-073 1906-3) Triglycerides (test code = 2571-8) 60 mg/dL 0-149 HDL Cholesterol (test code = 33 mg/dL >39 L 2085-9) VLDL Cholesterol Renuka (test code = 12 mg/dL 5-40 87207-9) LDL Chol Calc (NIH) (test code = 122 mg/dL 0-99 H 67142-6) Comment: (test code = 84501-1) [facility] Description: Lipid [id number] 02:17:00 Test Item Value Reference Range Interpretation Comments Cholesterol, Total (test code = 167 mg/dL 038-812 2166-3) Triglycerides (test code = 2571-8) 60 mg/dL 0-149 HDL Cholesterol (test code = 33 mg/dL >39 L 5-9) VLDL Cholesterol Renuka (test code = 12 mg/dL 5-40 15250-2) LDL Chol Calc (NIH) (test code = 122 mg/dL 0-99 H 88252-9) Comment: (test code = 86627-3) [facility] Description: Lipid [id number] 02:17:00 Test Item Value Reference Range Interpretation Comments Cholesterol, Total (test code = 167 mg/dL 657-540 1694-3) Triglycerides (test code = 2571-8) 60 mg/dL 0-149 HDL Cholesterol (test code = 33 mg/dL >39 L 5-9) VLDL Cholesterol Renuka (test code = 12 mg/dL 5-40 97348-6) LDL Chol Calc (NIH) (test code = 122 mg/dL 0-99 H 82749-0) Comment: (test code = 55845-9) [facility] Description: Lipid [id number] 02:17:00 Test Item Value Reference Range Interpretation Comments Cholesterol, Total (test code = 167 mg/dL 935-900 6469-3) Triglycerides (test code = 2571-8) 60 mg/dL 0-149 HDL Cholesterol (test code = 33 mg/dL >39 L 5-9) VLDL Cholesterol Renuka (test code = 12 mg/dL 5-40 13480-5) LDL Chol Calc (NIH) (test code = 122 mg/dL 0-99 H 23670-9) Comment: (test code = 84765-3) [facility] Description: Lipid [id number] 02:17:00 Test Item Value Reference Range Interpretation Comments Cholesterol, Total (test code = 167 mg/dL 247-923 4164-3) Triglycerides (test code = 2571-8) 60 mg/dL 0-149 HDL Cholesterol (test code = 33 mg/dL >39 L 2085-9) VLDL Cholesterol Renuka (test code = 12 mg/dL 5-40 55193-1) LDL Chol Calc (NIH) (test code = 122 mg/dL 0-99 H 51210-0) Comment: (test code = 51783-5) [facility] Description: Lipid [id number] 02:17:00 Test Item Value Reference Range Interpretation Comments Cholesterol, Total (test code = 167 mg/dL 763-843 5972-3) Triglycerides (test code = 2571-8) 60 mg/dL 0-149 HDL Cholesterol (test code = 33 mg/dL >39 L 2085-9) VLDL Cholesterol Renuka (test code = 12 mg/dL 5-40 04266-7) LDL Chol Calc (NIH) (test code = 122 mg/dL 0-99 H 66435-5) Comment: (test code = 24600-6) [facility] Description: Comp. Metabolic Panel (14)2020-10-30 01:58:00 Test Item Value Reference Range Interpretation Comments Glucose (test code 50 mg/dL 65-99 L = 2345-7) BUN (test code = 52 mg/dL 6-24 H 3094-0) Creatinine (test 2.04 mg/dL 0.76-1.27 H code = 2160-0) eGFR If NonAfricn 38 >59 L Am (test code = mL/min/1.73 44835-6) eGFR If Africn Am 44 >59 L [facility] currently (test code = mL/min/1[place]73 [place] [address]-3) compliance with the current recommendations of the National Kidney Foundation. [place] will update re porting as new guidelin es are published from the NKF-ASN Task force.
<br/ >Perfor med by:
[facility] (HD)

BUN/Creatinine 25 9-20 H Ratio (test code = 3097-3) Sodium (test code = 142 mmol/L 517-538 8286-2) Potassium (test 4.1 mmol/L 3.5-5.2 code = 2823-3) Chloride (test code 103 mmol/L 96-106 = 2075-0) Carbon Dioxide, 27 mmol/L 20-29 Total (test code = 2027-) Calcium (test code 8.8 mg/dL 8.7-10.2 = 17830-8) Protein, Total 6.8 g/dL 6.0-8.5 (test code = 2885-2) Albumin (test code 3.3 g/dL 4.0-5.0 L = 1751-7) Globulin, Total 3.5 g/dL 1.5-4.5 (test code = 36061-2) A/G Ratio (test 0.9 1.2-2.2 L code = 1759-0) Bilirubin, Total 0.7 mg/dL 0.0-1.2 (test code = 1975-2) Alkaline 140 IU/L 48-121 H Phosphatase (test code = 6768-6) AST (SGOT) (test 14 IU/L 0-40 code = 1920-8) ALT (SGPT) (test 21 IU/L 0-44 code = 1742-6) [facility] Description: Comp. Metabolic Panel (14)2020-10-30 01:58:00 Test Item Value Reference Range Interpretation Comments Glucose (test code 50 mg/dL 65-99 L = 2345-7) BUN (test code = 52 mg/dL 6-24 H 3094-0) Creatinine (test 2.04 mg/dL 0.76-1.27 H code = 2160-0) eGFR If NonAfricn 38 >59 L Am (test code = mL/min/1.73 55634-2) eGFR If Africn Am 44 >59 L [facility] currently (test code = mL/min/1[place]73 [place] [address]-1) compliance with the current recommendations of the National Kidney Foundation. [place] will update re porting as new guidelin es are published from the NKF-ASN Task force.
<br/ >Perfor med by:
[facility] [place] [facility] (HD)

BUN/Creatinine 25 9-20 H Ratio (test code = 3097-3) Sodium (test code = 142 mmol/L 645-086 8341-2) Potassium (test 4.1 mmol/L 3.5-5.2 code = 2823-3) Chloride (test code 103 mmol/L 96-106 = 2075-0) Carbon Dioxide, 27 mmol/L 20-29 Total (test code = 2027-) Calcium (test code 8.8 mg/dL 8.7-10.2 = 96709-4) Protein, Total 6.8 g/dL 6.0-8.5 (test code = 2885-2) Albumin (test code 3.3 g/dL 4.0-5.0 L = 1751-7) Globulin, Total 3.5 g/dL 1.5-4.5 (test code = 25245-1) A/G Ratio (test 0.9 1.2-2.2 L code = 1759-0) Bilirubin, Total 0.7 mg/dL 0.0-1.2 (test code = 1975-2) Alkaline 140 IU/L 48-121 H Phosphatase (test code = 6768-6) AST (SGOT) (test 14 IU/L 0-40 code = 1920-8) ALT (SGPT) (test 21 IU/L 0-44 code = 1742-6) [facility] Description: Comp. Metabolic Panel (14)2020-10-30 01:58:00 Test Item Value Reference Range Interpretation Comments Glucose (test code 50 mg/dL 65-99 L = 2345-7) BUN (test code = 52 mg/dL 6-24 H 3094-0) Creatinine (test 2.04 mg/dL 0.76-1.27 H code = 2160-0) eGFR If NonAfricn 38 >59 L Am (test code = mL/min/1.73 52273-2) eGFR If Africn Am 44 >59 L [facility] currently (test code = mL/min/1.73 [place] [address]-3) compliance with the current recommendations of the National Kidney Foundation. [place] will update re porting as new guidelin es are published from the NKF-ASN Task force.
<br/ >Perfor med by:
[facility] [place] [facility] (HD)

BUN/Creatinine 25 9-20 H Ratio (test code = 3097-3) Sodium (test code = 142 mmol/L 617-008 6971-2) Potassium (test 4.1 mmol/L 3.5-5.2 code = 2823-3) Chloride (test code 103 mmol/L 96-106 = 2075-0) Carbon Dioxide, 27 mmol/L 20-29 Total (test code = 2027-) Calcium (test code 8.8 mg/dL 8.7-10.2 = 92500-2) Protein, Total 6.8 g/dL 6.0-8.5 (test code = 2885-2) Albumin (test code 3.3 g/dL 4.0-5.0 L = 1751-7) Globulin, Total 3.5 g/dL 1.5-4.5 (test code = 56824-5) A/G Ratio (test 0.9 1.2-2.2 L code = 1759-0) Bilirubin, Total 0.7 mg/dL 0.0-1.2 (test code = 1975-2) Alkaline 140 IU/L 48-121 H Phosphatase (test code = 6768-6) AST (SGOT) (test 14 IU/L 0-40 code = 1920-8) ALT (SGPT) (test 21 IU/L 0-44 code = 1742-6) [facility] Description: Comp. Metabolic Panel (2020-10-30 01:58:00 Test Item Value Reference Range Interpretation Comments Glucose (test code 50 mg/dL 65-99 L = 2345-7) BUN (test code = 52 mg/dL 6-24 H 3094-0) Creatinine (test 2.04 mg/dL 0.76-1.27 H code = 2160-0) eGFR If NonAfricn 38 >59 L Am (test code = mL/min/1.73 51700-9) eGFR If Africn Am 44 >59 L [facility] currently (test code = mL/min/1[place] [address]-8) compliance with the current recommendations of the National Kidney Foundation. [place] will update re porting as new guidelin es are published from the NKF-ASN Task force.
<br/ >Perfor med by:
[facility] [place] [facility] (HD)

BUN/Creatinine 25 9-20 H Ratio (test code = 3097-3) Sodium (test code = 142 mmol/L 862-204 9587-2) Potassium (test 4.1 mmol/L 3.5-5.2 code = 2823-3) Chloride (test code 103 mmol/L 96-106 = 2075-0) Carbon Dioxide, 27 mmol/L 20-29 Total (test code = 2027-) Calcium (test code 8.8 mg/dL 8.7-10.2 = 05702-9) Protein, Total 6.8 g/dL 6.0-8.5 (test code = 2885-2) Albumin (test code 3.3 g/dL 4.0-5.0 L = 1751-7) Globulin, Total 3.5 g/dL 1.5-4.5 (test code = 10968-5) A/G Ratio (test 0.9 1.2-2.2 L code = 1759-0) Bilirubin, Total 0.7 mg/dL 0.0-1.2 (test code = 1975-2) Alkaline 140 IU/L 48-121 H Phosphatase (test code = 6768-6) AST (SGOT) (test 14 IU/L 0-40 code = 1920-8) ALT (SGPT) (test 21 IU/L 0-44 code = 1742-6) [facility] Description: Comp. Metabolic Panel (14)2020-10-30 01:58:00 Test Item Value Reference Range Interpretation Comments Glucose (test code 50 mg/dL 65-99 L = 2345-7) BUN (test code = 52 mg/dL 6-24 H 3094-0) Creatinine (test 2.04 mg/dL 0.76-1.27 H code = 2160-0) eGFR If NonAfricn 38 >59 L Am (test code = mL/min/1.73 40780-9) eGFR If Africn Am 44 >59 L [facility] currently (test code = mL/min/1[place]73 [place] [address]-1) compliance with the current recommendations of the National Kidney Foundation. [facility] [place] will update re porting as new guidelin es are published from the NKF-ASN Task force.
<br/ >Perfor med by:
[facility] [place] [facility] (HD)

BUN/Creatinine 25 9-20 H Ratio (test code = 3097-3) Sodium (test code = 142 mmol/L 633-047 6401-2) Potassium (test 4.1 mmol/L 3.5-5.2 code = 2823-3) Chloride (test code 103 mmol/L 96-106 = 2075-0) Carbon Dioxide, 27 mmol/L 20-29 Total (test code = 2027-9) Calcium (test code 8.8 mg/dL 8.7-10.2 = 17074-9) Protein, Total 6.8 g/dL 6.0-8.5 (test code = 2885-2) Albumin (test code 3.3 g/dL 4.0-5.0 L = 1751-7) Globulin, Total 3.5 g/dL 1.5-4.5 (test code = 63573-9) A/G Ratio (test 0.9 1.2-2.2 L code = 1759-0) Bilirubin, Total 0.7 mg/dL 0.0-1.2 (test code = 1975-2) Alkaline 140 IU/L 48-121 H Phosphatase (test code = 6768-6) AST (SGOT) (test 14 IU/L 0-40 code = 1920-8) ALT (SGPT) (test 21 IU/L 0-44 code = 1742-6) [facility] Description: Comp. Metabolic Panel (14)2020-10-30 01:58:00 Test Item Value Reference Range Interpretation Comments Glucose (test code 50 mg/dL 65-99 L = 2345-7) BUN (test code = 52 mg/dL 6-24 H 3094-0) Creatinine (test 2.04 mg/dL 0.76-1.27 H code = 2160-0) eGFR If NonAfricn 38 >59 L Am (test code = mL/min/1.73 64725-2) eGFR If Africn Am 44 >59 L [facility] currently (test code = mL/min/1.73 [place] [address]-3) compliance with the current recommendations of the National Kidney Foundation. [facility] [place] will update re porting as new guidelin es are published from the NKF-ASN Task force.
<br/ >Perfor med by:
[facility] [place] [facility] (HD)

BUN/Creatinine 25 9-20 H Ratio (test code = 3097-3) Sodium (test code = 142 mmol/L 096-263 1659-2) Potassium (test 4.1 mmol/L 3.5-5.2 code = 2823-3) Chloride (test code 103 mmol/L 96-106 = 2075-0) Carbon Dioxide, 27 mmol/L 20-29 Total (test code = 2027-) Calcium (test code 8.8 mg/dL 8.7-10.2 = 53862-3) Protein, Total 6.8 g/dL 6.0-8.5 (test code = 2885-2) Albumin (test code 3.3 g/dL 4.0-5.0 L = 1751-7) Globulin, Total 3.5 g/dL 1.5-4.5 (test code = 27162-8) A/G Ratio (test 0.9 1.2-2.2 L code = 1759-0) Bilirubin, Total 0.7 mg/dL 0.0-1.2 (test code = 1975-2) Alkaline 140 IU/L 48-121 H Phosphatase (test code = 6768-6) AST (SGOT) (test 14 IU/L 0-40 code = 1920-8) ALT (SGPT) (test 21 IU/L 0-44 code = 1742-6) [facility] Description: Comp. Metabolic Panel (14)2020-10-30 01:58:00 Test Item Value Reference Range Interpretation Comments Glucose (test code 50 mg/dL 65-99 L = 2345-7) BUN (test code = 52 mg/dL 6-24 H 3094-0) Creatinine (test 2.04 mg/dL 0.76-1.27 H code = 2160-0) eGFR If NonAfricn 38 >59 L Am (test code = mL/min/1.73 14261-7) eGFR If Africn Am 44 >59 L [facility] currently (test code = mL/min/1.73 [place] [address]-5) compliance with the current recommendations of the National Kidney Foundation. [place] will update re porting as new guidelin es are published from the NKF-ASN Task force.
<br/ >Perfor med by:
Lab [place] (HD)

BUN/Creatinine 25 9-20 H Ratio (test code = 3097-3) Sodium (test code = 142 mmol/L 823-937 9862-2) Potassium (test 4.1 mmol/L 3.5-5.2 code = 2823-3) Chloride (test code 103 mmol/L 96-106 = 2075-0) Carbon Dioxide, 27 mmol/L 20-29 Total (test code = 2027-) Calcium (test code 8.8 mg/dL 8.7-10.2 = 55530-7) Protein, Total 6.8 g/dL 6.0-8.5 (test code = 2885-2) Albumin (test code 3.3 g/dL 4.0-5.0 L = 1751-7) Globulin, Total 3.5 g/dL 1.5-4.5 (test code = 35201-3) A/G Ratio (test 0.9 1.2-2.2 L code = 1759-0) Bilirubin, Total 0.7 mg/dL 0.0-1.2 (test code = 1975-2) Alkaline 140 IU/L 48-121 H Phosphatase (test code = 6768-6) AST (SGOT) (test 14 IU/L 0-40 code = 1920-8) ALT (SGPT) (test 21 IU/L 0-44 code = 1742-6) [facility] Description: Comp. Metabolic Panel (14)2020-10-30 01:58:00 Test Item Value Reference Range Interpretation Comments Glucose (test code 50 mg/dL 65-99 L = 2345-7) BUN (test code = 52 mg/dL 6-24 H 3094-0) Creatinine (test 2.04 mg/dL 0.76-1.27 H code = 2160-0) eGFR If NonAfricn 38 >59 L Am (test code = mL/min/1.73 96478-7) eGFR If Africn Am 44 >59 L [facility] currently (test code = mL/min/1.73 [place] [address]-1) compliance with the current recommendations of the National Kidney Foundation. [place] will update re porting as new guidelin es are published from the NKF-ASN Task force.
<br/ >Perfor med by:
[facility] [place]aur (HD)

BUN/Creatinine 25 9-20 H Ratio (test code = 3097-3) Sodium (test code = 142 mmol/L 721-434 4497-2) Potassium (test 4.1 mmol/L 3.5-5.2 code = 2823-3) Chloride (test code 103 mmol/L 96-106 = 2075-0) Carbon Dioxide, 27 mmol/L 20-29 Total (test code = 2027-9) Calcium (test code 8.8 mg/dL 8.7-10.2 = 04545-2) Protein, Total 6.8 g/dL 6.0-8.5 (test code = 2885-2) Albumin (test code 3.3 g/dL 4.0-5.0 L = 1751-7) Globulin, Total 3.5 g/dL 1.5-4.5 (test code = 26490-4) A/G Ratio (test 0.9 1.2-2.2 L code = 1759-0) Bilirubin, Total 0.7 mg/dL 0.0-1.2 (test code = 1975-2) Alkaline 140 IU/L 48-121 H Phosphatase (test code = 6768-6) AST (SGOT) (test 14 IU/L 0-40 code = 1920-8) ALT (SGPT) (test 21 IU/L 0-44 code = 1742-6) [facility] Description: Comp. Metabolic Panel (14)2020-10-30 01:58:00 Test Item Value Reference Range Interpretation Comments Glucose (test code 50 mg/dL 65-99 L = 2345-7) BUN (test code = 52 mg/dL 6-24 H 3094-0) Creatinine (test 2.04 mg/dL 0.76-1.27 H code = 2160-0) eGFR If NonAfricn 38 >59 L Am (test code = mL/min/1.73 92931-3) eGFR If Africn Am 44 >59 L [facility] currently (test code = mL/min/1.73 [place] [address]-0) compliance with the current recommendations of the National Kidney Foundation. [place] will update re porting as new guidelin es are published from the NKF-ASN Task force.
<br/ >Perfor med by:
[facility] [place] (HD)

BUN/Creatinine 25 9-20 H Ratio (test code = 3097-3) Sodium (test code = 142 mmol/L 194-946 0110-2) Potassium (test 4.1 mmol/L 3.5-5.2 code = 2823-3) Chloride (test code 103 mmol/L 96-106 = 2075-0) Carbon Dioxide, 27 mmol/L 20-29 Total (test code = 2027-) Calcium (test code 8.8 mg/dL 8.7-10.2 = 63429-7) Protein, Total 6.8 g/dL 6.0-8.5 (test code = 2885-2) Albumin (test code 3.3 g/dL 4.0-5.0 L = 1751-7) Globulin, Total 3.5 g/dL 1.5-4.5 (test code = 71049-4) A/G Ratio (test 0.9 1.2-2.2 L code = 1759-0) Bilirubin, Total 0.7 mg/dL 0.0-1.2 (test code = 1975-2) Alkaline 140 IU/L 48-121 H Phosphatase (test code = 6768-6) AST (SGOT) (test 14 IU/L 0-40 code = 1920-8) ALT (SGPT) (test 21 IU/L 0-44 code = 1742-6) [facility] Description: Comp. Metabolic Panel (14)2020-10-30 01:58:00 Test Item Value Reference Range Interpretation Comments Glucose (test code 50 mg/dL 65-99 L = 2345-7) BUN (test code = 52 mg/dL 6-24 H 3094-0) Creatinine (test 2.04 mg/dL 0.76-1.27 H code = 2160-0) eGFR If NonAfricn 38 >59 L Am (test code = mL/min/1.73 85488-4) eGFR If Africn Am 44 >59 L [facility] currently (test code = mL/min/1.73 [place] [address]-0) compliance with the current recommendations of the National Kidney Foundation. [place] will update re porting as new guidelin es are published from the NKF-ASN Task force.
<br/ >Perfor med by:
Lab [place]aur (HD)

BUN/Creatinine 25 9-20 H Ratio (test code = 3097-3) Sodium (test code = 142 mmol/L 011-821 9151-2) Potassium (test 4.1 mmol/L 3.5-5.2 code = 2823-3) Chloride (test code 103 mmol/L 96-106 = 2075-0) Carbon Dioxide, 27 mmol/L 20-29 Total (test code = 2027-9) Calcium (test code 8.8 mg/dL 8.7-10.2 = 50493-6) Protein, Total 6.8 g/dL 6.0-8.5 (test code = 2885-2) Albumin (test code 3.3 g/dL 4.0-5.0 L = 1751-7) Globulin, Total 3.5 g/dL 1.5-4.5 (test code = 37296-9) A/G Ratio (test 0.9 1.2-2.2 L code = 1759-0) Bilirubin, Total 0.7 mg/dL 0.0-1.2 (test code = 1975-2) Alkaline 140 IU/L 48-121 H Phosphatase (test code = 6768-6) AST (SGOT) (test 14 IU/L 0-40 code = 1920-8) ALT (SGPT) (test 21 IU/L 0-44 code = 1742-6) [facility] Description: Comp. Metabolic Panel (142020-10-30 01:58:00 Test Item Value Reference Range Interpretation Comments Glucose (test code 50 mg/dL 65-99 L = 2345-7) BUN (test code = 52 mg/dL 6-24 H 3094-0) Creatinine (test 2.04 mg/dL 0.76-1.27 H code = 2160-0) eGFR If NonAfricn 38 >59 L Am (test code = mL/min/1.73 73806-9) eGFR If Africn Am 44 >59 L [facility] currently (test code = mL/min/1.73 [place] [address]-2) compliance with the current recommendations of the National Kidney Foundation. [place] will update re porting as new guidelin es are published from the NKF-ASN Task force.
<br/ >Perfor med by:
Lab [place]aur (HD)

BUN/Creatinine 25 9-20 H Ratio (test code = 3097-3) Sodium (test code = 142 mmol/L 506-873 7433-2) Potassium (test 4.1 mmol/L 3.5-5.2 code = 2823-3) Chloride (test code 103 mmol/L 96-106 = 2075-0) Carbon Dioxide, 27 mmol/L 20-29 Total (test code = 2027-9) Calcium (test code 8.8 mg/dL 8.7-10.2 = 89771-6) Protein, Total 6.8 g/dL 6.0-8.5 (test code = 2885-2) Albumin (test code 3.3 g/dL 4.0-5.0 L = 1751-7) Globulin, Total 3.5 g/dL 1.5-4.5 (test code = 08244-3) A/G Ratio (test 0.9 1.2-2.2 L code = 1759-0) Bilirubin, Total 0.7 mg/dL 0.0-1.2 (test code = 1975-2) Alkaline 140 IU/L 48-121 H Phosphatase (test code = 6768-6) AST (SGOT) (test 14 IU/L 0-40 code = 1920-8) ALT (SGPT) (test 21 IU/L 0-44 code = 1742-6) [facility] Description: Comp. Metabolic Panel (14)2020-10-30 01:58:00 Test Item Value Reference Range Interpretation Comments Glucose (test code 50 mg/dL 65-99 L = 2345-7) BUN (test code = 52 mg/dL 6-24 H 3094-0) Creatinine (test 2.04 mg/dL 0.76-1.27 H code = 2160-0) eGFR If NonAfricn 38 >59 L Am (test code = mL/min/1.73 66778-3) eGFR If Africn Am 44 >59 L [facility] currently (test code = mL/min/1.73 [place] [address]-2) compliance with the current recommendations of the National Kidney Foundation. [place] will update re porting as new guidelin es are published from the NKF-ASN Task force.
<br/ >Perfor med by:
Lab [place] (HD)

BUN/Creatinine 25 9-20 H Ratio (test code = 3097-3) Sodium (test code = 142 mmol/L 215-312 5369-2) Potassium (test 4.1 mmol/L 3.5-5.2 code = 2823-3) Chloride (test code 103 mmol/L 96-106 = 2075-0) Carbon Dioxide, 27 mmol/L 20-29 Total (test code = 2027-9) Calcium (test code 8.8 mg/dL 8.7-10.2 = 93386-4) Protein, Total 6.8 g/dL 6.0-8.5 (test code = 2885-2) Albumin (test code 3.3 g/dL 4.0-5.0 L = 1751-7) Globulin, Total 3.5 g/dL 1.5-4.5 (test code = 14821-7) A/G Ratio (test 0.9 1.2-2.2 L code = 1759-0) Bilirubin, Total 0.7 mg/dL 0.0-1.2 (test code = 1975-2) Alkaline 140 IU/L 48-121 H Phosphatase (test code = 6768-6) AST (SGOT) (test 14 IU/L 0-40 code = 1920-8) ALT (SGPT) (test 21 IU/L 0-44 code = 1742-6) [facility] HAND RIGHT COMPLETE 3 [id number] 11:29:03 [facility] : 1975 Sex: MRight hand, 3 viewsLocation code: [id number] HISTORY: Pain in second finger of right [...] Sylvester Case MD 10/29/2020 11:29 AM CDT [id number] OBTAINED CULTURE + GRAM [id number] 15:17:00 Test Item Value Reference Interpretation Comments [...] No organisms seen (BEAKER) (test code = 238613) SURGICALLY OBTAINED CULTURE + GRAM [id number] 14:58:00 Test Item Value Reference Interpretation Comments [...] No organisms seen (BEAKER) (test code = 336953) Tissue [id number] 09:25:00 Test Item Value Reference Range Interpretation Comments Case Report (test code Surgical Pathology = 104) Report Case: [id number] Authorizing Provider: Laura Nguyen MD Collected: 09/26/2020 07:56 AM Ordering Location: [address] Med/Surg Received: 09/26/2020 08:55 AM Pathologist: Hilda Mack MD Specimens: A) - Soft Tissue, Debridement, LEFT FOOT BONE CLEAN MARGIN. B) - Bone, LEFT FOOT 5TH METATARSAL HEAD. DIAGNOSIS (test code = t2jtkKTfIIKbx9guZXOdrN 3220) FuZzEwMzNcZnRuYmpcdWMx IHtccnRmMVxlcGljOTIwMl akzdWeWEOwkKGxC5Uanzvz DZqnBV0yXB9ypIaqdLCsfC DsMAKlDwWvt3brb572aVIy z9ayAMQMvgzkhMz4jSqrL2 4nz8T4UsumF35vvEHdLMrt bGFpblxmczIwIEEuIEJPTk QvMJuJHfXkIl4CREPVTOXT GxLQZDJPWL6nATZVM6NFPF emfPPfMZJpWJ0dCr7BDQPO CnClOyjENd7JX21NFFDXMR KNOENNT0GOULoqAgLBIRUZ LzHnHs7WCGVUKYKJSU0FKU VPTVlFTElUSVNccGFyXHBh ohRKJqPER67EHVARWSZDAO GPB3TvCYTPZO5RWQOLPEPZ IXgfZZWWAIqcCK7MCJOVMN nPCdpdwYZxXOCxXT0rFDEO SOOcHT9UIXKAGe2LURSnT9 PYSA0RYCVVYVUHNdIauMEl dFjnsiKlUCuki5RzMFjwHA NcRV4pcOheUWMlVA4xRYTw R9yfxT5iutq0UwPeMLMnNv W4KDDdowX8Ips2TPFjJWmr o5bsw1PtCLMeHSn1lPdmSy EoLGQtm1cadoMeLwFhVGOw BMBmYELlqQXqQ874l6zat1 gcqnAzwGU4IBWuSRA4QPij vjAmfbB1TBiyuUDcLwN1LE tccmVkMFxncmVlbjBcYmx1 GKKqT850KJI0jTxtm7qrXW H5ZGEgGOPjDqRvAc4gnBYq X621IZUuIXEMUQLzjYp0AF QptrOagxMwfXMEz659J356 j2lwAKZeuxNraJkGmezpx2 mgZ290LZGxaQMpzvLcFcLu PJBvkFYciYQ9WTWjBN4mwr ftELktOFmgLZYbshB5ILOf uBZiW0IzCSZeBS8atskuSM L6PPbzWNDhMAY2CvQnXCNj p7Xrikl5ZfRaho3vxn43GF C3v2CwjWqyKGI1ODU7GgQz Ge9suBAuXTQyGD1oRbOjdX RpPXKtpg92yBicTPutNMJ3 NQUtkmAxg9Dsx1zaWqTjcx JuB3ioP5ZjHDLkZGCcZSBb WfWnptJmp1Ish7GwyHZmpI i4z1ztLTXnGMHezHelx6nl SYZ2DERkcVEmW0vyzD4nVG MrZO3vzevpq4knPQdqSEul CJRpvRS1rkU9DOHfcHWbY2 BlxJ6eNTRaYGqvZUTcnrw0 FvGbSs9wnEQtgCmoPJjyCy twYWdlXHBnbmNvbnRccGdu ZGVjXHBsYWluXHBsYWluXG YwXGZzMjRccWxcbGFuZzEw MzNcaGljaFxmMVxkYmNoXG VrNZetA4lhZnXyYvBfXav7 PRJasOMrXPNdNcr1IZGtlX XyFZNLaQywmB9aUUUlaSey tX8xgOW9LCBujjMebXHVjG 8eXFBPpM5lWgLdIWXzYsR6 LTcxNjNccGFyfX0= CPT Code(s) (test code c6mybSOwOTSkyMS1YxSoES = 3357) Guh8pob6SntVKrrQBwCZrg sYAhxfAork29bHT7rM92BL 5mMRKhReV1KOWcvhJ8Etp1 ZMQmUJTiyBEfC355r9yzu1 fycqGggJO1aUpqNIYrOQYh YWluXGZzMjAgODgzMDUgWD LwVAk5PtZjZCliVTWshc5= CLINICAL HISTORY (test x2dugMFzNTLfqRE4DtExUA code = 3356) Kqz7rle4WzaRRnuERuLQrn sWEwkjTahv47uKG1uO81SB 0uMTZqZsP4JBKhmlY1Ipa6 YVLdQXSheKGvD080y7shk1 rjshShoWI4xHgmOAMmEMWc JBlfBFTuUdHzRFvoTkD7qS NtxIatTVDdf1HftMLsxIDs i915DJDqn72bzHV7UWLiv5 u7rJCiaWEnFVJtveDeEOrt gGZ6iyUmoJDzxP8bpU3pWG IrhOyjEvMvx84oiZMmd76x KUDem9OlZ4fmcIYjNFYjge Ded4KeIc9wcSzznR0stELo lDBeJUYcuYiyXAUrk3AdL3 UgXHBhcn0= SPECIMEN SOURCE (test a2sqwXPgAIUiiAW6LkCzQM code = 3377) Jiu3ozq7EouJFiiGSeUWta wZYrvbKwml32kNF1gG27GL 4bAITuVhW8XGPuozN8Tza8 FYVyBBLogHJzS449d4rsz6 usdgCwuZH5rGmlBYJjECQi SZovJNAgIlUdYA6iK88inG R1mXOocTGdJAYdQmIdETHx VK14EuOPKgNRe97eNActCA J9 GROSS DESCRIPTION (test h2bfyIIzIMGvjCS3MoLsSQ code = 3366) Ode0ikq4NwmSKwyDMrBWvz qKHpqsGquz00vXP8qY88UZ 6eGWMjZeP1VRCfonJ6Lsb6 UQCpYXFztKJfZ643l7sdn6 mklhXojQH0uKlnJKQyJQHu EQhsBLTvEvOfEB9xQYjyFQ KeHLJwsTNxCZimKJKrU1Mo xnYtLCszIFJcD58qbUBooa NkMUesqOqhGn0juXDxkE0y vXKySGxmLIY3rMWiTVL4lk ZmCZKzRP36WCtkRS84xVEx AQPmBTCfORDry44mgBV7xC MxzMAiQBJqRpYzWZJaWM14 Zu6bBDMpV62ob2iqoDMcf2 LwKVVaYKoxPO17FUrjTU2s LTUfTRSqPIgiDL51XI7lKK Tdlj47wDo5QVI1uZUujXYz b7ajC6ktxLPpKd0wIFkfoZ TozROgBaYIyMEvaGV7EKBa iQ3pXTToJPA8DYMdbMthgH NnVDVgASfnnRKtJ2B7mH4x RbPzJWNpwjiaLOGnIo6pPV hlIHNwZWNpbWVuIGlzIHJl B9YjyhAbANotHNBqZ80jiT SdwhIyGIvlbFiiJg5pfQIp jC2wwBYsRUgzOMC6gBBoBO M8ouYqKTZrWQ37IIgqBV35 wQYrEZFdOXNjXYHsWr3vCO CfNYo9LUFetgLqz9HsIL0q OYAiIY36VQlbRUT6PVQqE1 4dVnWpT35tijIer2JkLb0l PZD3wKPjGXKlqBblkWosdc ClQZV7iMxuF5EtMSGmw2Kc GLJyL2Sto45tFEDcrdHfc3 ZyoZq3dUZtOIkwLCNkRUMs lKGeTIUbO0VpN6dcxTIdfE ivsl6vCGItH3RhJSXojm2= MICROSCOPIC DESCRIPTION z8zwrESmPPSybOD2IgNsNU (test code = 3371) Fxk2pmy8WfxVFvzYFnOEgn gXAxpnEqdr73tFY5dF59ER 2xQEXwQzM6CEDwfnC9Gvw8 IDWeNDHxaUAfD983e3gbk7 ybngJqvUY8gLhoSITnLBYv KGyiPHUdWaOaBL8APcWICH Tsm9HcACCeLJbkISW4 Gross assessment was [facility] performed at (test code [facility], Department = 2777) of Pathology, [address] [place] [address], Technical component was [facility]. [facility] performed at ([facility], = 2778) Department of Pathology, [address] [place] [id number], Professional component [facility] was performed at ([facility], Department code = 2779) of Pathology, [address] [place] [address], [id number] 09:25:00 Test Item Value Reference Range Interpretation Comments Case Report (test code Surgical Pathology = 104) Report Case: [id number] Authorizing Provider: Laura Nguyen MD Collected: 09/26/2020 07:56 AM Ordering Location: [address] Med/Surg Received: 09/26/2020 08:55 AM Pathologist: Hilda Mack MD Specimens: A) - Soft Tissue, Debridement, LEFT FOOT BONE CLEAN MARGIN. B) - Bone, LEFT FOOT 5TH METATARSAL HEAD. DIAGNOSIS (test code = a3btyLEpKJLwt7vnFWYtsN 3220) FuZzEwMzNcZnRuYmpcdWMx IHtccnRmMVxlcGljOTIwMl qejjRqAKPlyZQlH1Tdrsbd JTsgAK2gWW2qzNknhUJysH HoJXHmTyZjj9wie458zDHa n2hvYKXIvgvqoCc1vIbyS3 5mu6Z5XfouN39tqKJjCOpx bGFpblxmczIwIEEuIEJPTk ZtVQeUQkAvPs9PZXJGNXGD HdDWKABANB4hBJGOC3EEIP hyhYOgBRCjCV5oEr3HTCTU FqGqWgwXWz5GA25SVNFESA FOIZIGD5FKIKxyPhJFIBJL ZuLqNj1WXEELRUQDCQ2PPB VPTVlFTElUSVNccGFyXHBh dyBUIwRGY09NMPEFUCKLMS LGY3TdBWMLHJ0YLSMJGWBD DDouFPYRTDwrRR3TJTWCYN rHAreujVPtKZVvLK4sPFFX TBTaJC0AXCNOBe1LNEEtM5 ANLU4YHLLPYVCMSoAaxWBq yYwlimBiBIlur1CcXShtLS CtNF9njGbqFHOnVB0cIPTu A8czrL6cstq8LiLzEGRyZp T9KQDgmxC4Giz5ERSxPRrh o1xrm9IzYZEfTGh1lZkgUt DrGRCst3lylvTqHoShZQMm WLTiEOKumIKjM226y3sdf1 sgrpXkqCB1YNPvXMY5VDqs xwCqdcH0MTfaoGFoVsS7IJ tccmVkMFxncmVlbjBcYmx1 SHUjH002WBT4oYckf0wkPL V8ZRRtKUSjCoRdJj1qzORo J794BVRpJEGXTOEsgAj6XU LwylRmkmZulGBZz491L384 g1wlYZMgjtHjxSpVogkmp0 cwU060LCTvfKUlayHiAsXj LUOwoYTvsJC6CRCmZK8umi uwUBolOLhbDGTzvgA9WLMb oAGnO8ZpKRRtGK0ihkqmXV F1WKlbQHUeFCK9CrCcRNWt a5Uxxbb2YlIivg3blp95PX X8y6BujLtsBHA7MAH9WeYi Lc5ojFGxMTGoPV6hSxZyyD WoOJOwpk64sSsrRUwiJIR6 UYAuttOjh9Eec3saWwRjsh IxW2raD8IrBLLfQGObSGXr MoWctfQaf3Gea8DtyEZecM b1e2yiHAXrEWNdrByxp6dp EVE8WLOvjYOvY3rfeU7qAO EvIH0srwdmg9vgGZjfKHvh BYTeuZA6pjD0TAYugTDtE3 OstV8rIDJsPZhfWKUllev4 KgPyOz9exHBxtJxaLOuaWv twYWdlXHBnbmNvbnRccGdu ZGVjXHBsYWluXHBsYWluXG YwXGZzMjRccWxcbGFuZzEw MzNcaGljaFxmMVxkYmNoXG CdMAkeH2yrRoXjGgEnHkm7 EFWzuVIoWODjXpg5JIOmsT ZkEBOZsCarsS4pIXAscThs jE6foOG4XIGbyeQsdDEXvT 8vLQOCeB2nBxHwNIEmCfO7 LTcxNjNccGFyfX0= CPT Code(s) (test code t5yrsTDvROZulTW0VcGsQW = 3357) Uva8xen2XoqJYwbRAqRRkn eCAzgvOkkn45nET0hO05VI 4sNZCfInY5EDTercC3Sfm8 PGOlYYBejONaV232h9fxn0 cflnFdhHN3kSnkYYCxHUJu YWluXGZzMjAgODgzMDUgWD OlVTa8QoZmNVvgBTCrtv2= CLINICAL HISTORY (test w3hfoFLaUCDrlDM1FdVkTV code = 3356) Ddy3nns8YlxLFxeYHaDCth uFRppnSiia30kEB2aO87MQ 9pTAEsFxF1FYPhxeE6Eas4 YCXrYOQysVJmF060i8uxe1 xidxBkaQE7gZyrTGUvDPGg OSnlBYKiFfOnMYqjDlG3cQ VcrZgoJBKfn7ZweHSchCAs u865VGKez20ftSS6QMIyv5 h5iHTarJHjYMArdhIbCTee uIY4zsLzgPPjvT6izH0oCT YoqQhwAxRce17ipLFxe14c EKIus4TvF2gelPGnVMJnhs Ddm6TyFa1glNyuvS6ekTUy oKRvRCZzoCamGJFhx6EcE5 UgXHBhcn0= SPECIMEN SOURCE (test g6bsdWMlQKEbqEJ4LuBbLG code = 3377) Lky2rlj5FydNVffWLfNAys pXJdleYhmv95xMP2nU60GQ 9pMFMyUfC2JFUqtuI5Wzg6 AJJmCKXtxMYcV055y1rzf7 tvfrWiaOK7xOctCUAtMPBk DRjtPZVtCuUtML9vZ91fkU U9oNZuqPJzCHXqWsQjDEDy NP25PqJEChAAx32qDFezXY J9 GROSS DESCRIPTION (test o9qgdALeMSOejPT6VrSuZO code = 3366) Ygl8xhb8FgnNSocBYyZKft fMIrnzEsfb59cND3nN56WS 0hAOHhFzK6FPKpwpQ2Cfh2 CZQoSXSbjTYfZ374m9svz7 kdrkKesIH7nSqhVFNoDVTi MNasWRBoMiVrPP3vMGrdEM FwITVhaHBbHAnhAJUzH2Lv njLlZDacGXCtN15soKLhoo CfGPnewNziCt0avVWkyT2m bHVtTPrbNXG5dYOxGHJ9az PeDSKwWJ89DMkqOG94tYRg AAVrUOIeXHUfe08efDY0zO XgzRUtIBUaQhUmJYZbMP20 Bw0jBAUeS46ys8nzySBpo0 TbCNBdIEskSI01TWnjQL5h HQToDGPpCJzuDK77MO8hJZ Asis85tIe8QDT8yCMbaIRl g6smW1ogrMQgBb5pQPzjnZ GjpFDxGcHImYMcjOZ0AFIm eR3bCCMbZZZ7VTTddTuifF DlUMSwCMhnlAAmO4U9xT2c BpPcXLMbirexAESkWg7aAX hlIHNwZWNpbWVuIGlzIHJl P5VnlgQdFInlBISjB70ilW JdzbXvWSpoaCvmYx9ncROr uE2niLOxYHvkJOE2eJJoXQ I6rbCsONHbIZ54MWsmGQ49 oRKtNNYaLURrVWZjZb8eTB QpSUs8CSJvtfBpw3LaFO2j RMGsFX68RUvyAOQ3UMUdV4 0nRlZfG32pgrQsp5IdSd6o MAE3dYUbZYQpvCtquIbqwe LdNNK6pPmbV1WfJBHtx4Qc WMZzO3Zti09zMXRehmCzi5 VkpRh5fKXmFNvoMPKqWNXj vNPcEUBrA9BiT7fafIXmjO surg7tPQMvE2SsFFWaig6= MICROSCOPIC DESCRIPTION h9uolRGmMSKfsQE7QbFiOP (test code = 3371) Hgb1gtu4EdxZRbsFRcJToa cHYglbWtvg28mTI9iP80TD 7mXTSjRhZ9SNDyqvS0Vvw3 ZOSkFRJxbQXcG437l2elb7 jpbsHieZV5xOgfLYWfJOOt CAjrQKGfRaHtWU8FRrZZYA Nep9VfSKZtVJwkCVR6 Gross assessment was [facility] performed at (test code Hospital, Department = 8584) of [facility], [address] [place] [address], [place] [address], Technical component was [facility]. [facility] performed at (test code [facility], = 2778) Department of Pathology, [address] [place] [address], Professional component [facility] was performed at ([facility], Department code = 2779) of Pathology, [address] [place] [address], [facility] [id number] 09:25:00 Test Item Value Reference Range Interpretation Comments Case Report (test code Surgical Pathology = 104) Report Case: [id number] Authorizing Provider: Laura Nguyen MD Collected: 09/26/2020 07:56 AM Ordering Location: [address] Med/Surg Received: 09/26/2020 08:55 AM Pathologist: Hilda Mack MD Specimens: A) - Soft Tissue, Debridement, LEFT FOOT BONE CLEAN MARGIN. B) - Bone, LEFT FOOT 5TH METATARSAL HEAD. DIAGNOSIS (test code = [id number] 3220) FuZzEwMzNcZnRuYmpcdWMx IHtccnRmMVxlcGljOTIwMl zbogBiGNDysSJqO8Mnjywm XYgnOD8mHH3czYgiqQMleW JsZAVhKkZue0mqh180oGUp h4vzGWMKxorvcYn8cTphR5 2eu7K5LawxD11nxXVaUShb bGFpblxmczIwIEEuIEJPTk CcRFmDUoOnMh3ESSAYMVNF DpULIQCSTM1fHUXNN0IXFH jcjJYsIEEqLI7iWq1TERQM ZeVkSjrDFc9CY62FDJYKQY IAAYMGE7WQTDoxYzDCRXZH PyWvYx3TSCDUNHUPCQ9ZKH VPTVlFTElUSVNccGFyXHBh xhVGFhAZK43DKTPDRPMOPN NIV6CiTWPWQR8AUYAFIOFU HJszVHZWMMyeVH0WMLAEFO uKVmhghLXhTOWpUF4kXGRL GXOyMD4LYNSRGo7YUZYoZ5 LIKK4MDSBXTXETJkEpbZLa qTezwkXuJOute1YvCTicKY FsGS4uzPavNRVhYK6hGXSc W2ivyI7qggo7EoTrARCoJm V8RCGaqxF8Sil2AGUhSEuj r9gli2BoFLUvYOd3vRwjPa WxMRYfa9fnmzEuSpWvYQTm AEArCWExqKVmZ809y6mdp5 pmgwAniFC1YAOeTUF8SUcg gpHscwV0BNnzyVDeUdC0OL tccmVkMFxncmVlbjBcYmx1 WFMcZ156SQY8pKgwk0naTZ U2DNWzZIFwOyRhVi5vdHJt T926CFJzWENZRDQkwLg8IQ IjbnYhpgRggJAFq953M475 a4qhUVQcgwNttUgQfoobq0 xcT627RZGlcZJrrrHhBxBx GPTapMLgaMN4WOHwND2vkk tmUGpqYAhtCWAuyxN5LGKd cTOdJ6DhKINlWT8bsoffGK N0AQgmNJEvOWT6SoGnATJc q8Qerfi9FrWcqi2wnl87JI P7l3BihUbnQJB6QEI9PuPj Op4zwISmMPDoXN6xXzFybT AxMFAalt56nOlvOSnqQFV8 EFVzzjCat3Mdk2ceWaLpne NbM4zwZ5FpENFeHRVkQSRy KqGgdmRfc9Gli3PcsHGuvO a8q0kcCHRiZUNmwThsh1se NVF2ENUkmZPlD7yzvZ4hQG UoJS7ruedhd3vaRFqlTLss XVOklRI3ayN2BOBiwLGuQ7 WjaD5sGCQfAXycGHPwrce5 WpWlSb6iiBNzmZihSCjgXt twYWdlXHBnbmNvbnRccGdu ZGVjXHBsYWluXHBsYWluXG YwXGZzMjRccWxcbGFuZzEw MzNcaGljaFxmMVxkYmNoXG OaKYpgD7elDsItKySsTrr7 GKOlfNOfFIDfXan8MNUzaL JdQQDXmZsraV5vIIOiiCcq nK1bnAQ7SPGwnySckOFNyK 6rBXCUiN6lGeFbJTWeByN7 LTcxNjNccGFyfX0= CPT Code(s) (test code j6jgcPIfYCNenGM1AlLeRL = 3357) Cmx6iiu1QnqRRsuTLfXFgi qWKddpGjgf25rJI5gF50NB 4eJNJaPzM7OHRjrpS9Pau0 URAbOTMcpBXxO392q6whv9 liajIphHL5nCgnOFKqNZAn YWluXGZzMjAgODgzMDUgWD KjSAw2NfMmABukAAVwjv7= CLINICAL HISTORY (test a5vflJJmSVKekYF5WpCzZK code = 3356) Nyb8hnj9YtmBBblVNnZKmk yYXnvaBqfa98vJK6bU24WH 1zTTZyVzA6YRIopfR8Fpm2 OTHbIVHpfEJiR920x7jnm7 ciuhDuxPO9lElcCPOuFEGq NUuzLKXhUvYpUUnjCnS3tP JpsDdnCKXpy9WfaSEvqIKe k081RLEef05cnVM2GCWws8 j6xGSpiQKxJBQbgmMgOKbl fVT3uwWdwNCzmO3irP5nWC FldQdzLzVij70fgMQts39x ECCkt7YdG1nugEMdCOXadd Wfz6RsPy9rhVkrcJ1hyULp rFKqABAggRkbGTYxa2PpG4 UgXHBhcn0= SPECIMEN SOURCE (test e8iyfAMdYMKcvEX9TxJuIT code = 3377) Hob8rvw8VesVNvlCWmTKvj iMHndgApqv82gSE4wB40MU 8pJRFbAfQ2LJVfbiS8Hdf7 GNTcRQGzgNRzE513h2fje1 axfrJiyCZ1yAtmYOOtRSHp AIrcHQEpOfTuAJ5cC01fuG Z2hVCslRAyCXOvBsSkPMSz NU50EsPPLgZZo10mHCwlLY J9 GROSS DESCRIPTION (test g8xqxMNoXJFzvAT2LrFxSV code = 3366) Uhn3bbd8BsyZYvkZPrUBjx sCSineWafy02rJT8eJ89PL 6hELWeEkE3SUZcoxX2Tch9 AMLoIHTuuSLjT485b3gop7 tfuhFflUE4pWblNWHpUKWg WAvpFDSiUeShQW2yFXblYW SdQYSunAHoBVomGHIjJ6Qe ojBvWSfdWXDsW25xzIIhfw IvFAmhjAtxFo5eoFQybE0g mGUoBSgbJMR3cSPpMHB3eh CvJRVbQA25VVswOC38wMVz BSDtFHQvTIIbs31fcBS6mT HngXGiATAgSdBgHMRbQM03 Ud4uAKXcC25ko6tgiDWck8 RvYGIoQKhnGF63ABcuRC0t KZBaQXElJCczAU01JI0dOC Hgqz49dCn3SCO1vCUjpLFp f6ioM5kohQCdRg4iTRoszY HhnDOqRkGUsJGvcRQ5SYIo eV4vDGShTTT3GUQpwUmouZ NlCFEsUNjnvBIcW5O3eG8r XiMqSMZkgcnwVTJfRc0zQF hlIHNwZWNpbWVuIGlzIHJl N4AygwYwOVgxGDEyL80scT BsjsXtHYhyfUtxSq5afPNo gC2vsTUjXHhyHPH9qPDpCP Z5skQxHRBfFA68URfuTQ99 gNBlEQTjKEXgFUTkAh1eUG HwLYp0KRYdssPwi9RiKW4r HMXyKW36IQfiRSH8IWWhG4 0mBhCsK58dwjXya8UyUu5b UHO1yBPoDDDxwEkffFroxb PjBZK8yFclB7IvUCWgq4Fx EINkB7Llc92sYMVtdtLib4 YudQz9tNYnCGrmPGMySBHb mCUtJLZcZ8DuD0udfXOjuL zpki8sTDKjJ5TvGFZodg2= MICROSCOPIC DESCRIPTION e6qrvEFiEVAqxCA0EtIwGU (test code = 3371) Ztm1dad0UkqRTdoPWyPIui fMBjweZzmn56wAA6hE92SZ 7bFVHpSoF8SZLwxrQ6Noo2 VJFoDPAghPTuS558t9sxv5 tvexQnmUP3gCqqZNNmICCj UHbyTNOhBhOdJE0CMtJJLN Sdo2VhQAXpDSpjFFW9 Gross assessment was . [facility] performed at (test code Hospital, Department = 2777) of Pathology, [address] [place] [address], Technical component was [facility]. [facility] performed at (test [facility], = 2778) Department of Pathology, [address] [place] [address], Professional component [facility] was performed at ([facility], Department code = 2779) of Pathology, [address] [place] [address], [facility] [id number] 09:25:00 Test Item Value Reference Range Interpretation Comments Case Report (test code Surgical Pathology = 104) Report Case: [id number] Authorizing Provider: Laura Nguyen MD Collected: 09/26/2020 07:56 AM Ordering Location: [address] Med/Surg Received: 09/26/2020 08:55 AM Pathologist: Hilda Mack MD Specimens: A) - Soft Tissue, Debridement, LEFT FOOT BONE CLEAN MARGIN. B) - Bone, LEFT FOOT 5TH METATARSAL HEAD. DIAGNOSIS (test code = [id number] 3220) FuZzEwMzNcZnRuYmpcdWMx IHtccnRmMVxlcGljOTIwMl nszsSwUUCldPMzL4Bqdpse CLkmTP2aRW2vfYwnoBJetN FcXOXbOuMux8qyu708qILw a7rjNUJFvawtsHf9rSisL6 3uk6U7XcuwS52ikSKoMAqf bGFpblxmczIwIEEuIEJPTk OeKLoDNnBoGl4ERYLORGYD FxQKFQPUCH6oZFGTQ3XNNH sclOVeWQEbFO7qUb8NNGGF OkJgSuiKAc1MJ20THPKLXC QPTFFXL2IMJPlfTsXDEIZW IbArVa7TTVDZEIAWXX9WHT VPTVlFTElUSVNccGFyXHBh taUTJbHTU74PFTGJVJTSMR DXK5SsZLQVNG9PYDPFGNQX KQgtRIUQHDirKP2RPJOTLY lEVtaxtZIpJGCuAQ6kDXBQ IYBeFK5EXCDUCr6DKNWiK3 IDDS1RBXXOGHONYcFhaGKo nLhnfaOpQPlll1PqAJqtAJ IyEM8ewMzmWROyYH4sZHBl Q0nmpR5vzqe7UrUsWAUuYh P8ESIhkjT6Gva3OTYdAOui f3xeh3PoLDVcBMc0gLosSo WtOAHso7kadvZtQhAnFOHn DOGpQLQcpOSmR955g7asz1 ffatYjpGR9LVBrDLT5NAda nmFdctF4MYqtnCPlPvG3RR tccmVkMFxncmVlbjBcYmx1 OTNuI140IXU7kZaxr5klRZ F8CAUiQFKzPiBiSq4geMBc S396YTFtIOGPBTVsoKs6BF SdnbLkapUdfQTEg797L908 m9prTESnxqHocChRrzaih5 qjC769YIJurGNdocKxKoKa LAIphVLflTO8CKZwIG1gdv rgUWqxTAbhHTXctzB1BVWh iEPuN2ZoMVWpLS9icmzxVQ M2VLgiARKoSSQ5JoFrNGZb m9Chwpp9NsSeja6zfs96EI O5j2JjrRduZPO3ZDR9YySf Vz0hnGKxBGChZD3gTiFdnY DyGCKhvr14kHqvUCykGLI6 KUEfukTwt7Yum7lyWlGgnh ZfU3caC0ZfAMPpDSYcMBIs KqOxtpDvt9Cbn9AogYXspG y5b4htYJVuHALdqPaow6zj PPM0VFOawAYjQ0xojV7nJR QzNB6luupmi4nmRLmwOSsp FZWapQI3tzQ1NZPsoICyU4 VpsY7cDXJhUUwfPLIylje5 GmEqMe0gqZIchGnqXRgbBe twYWdlXHBnbmNvbnRccGdu ZGVjXHBsYWluXHBsYWluXG YwXGZzMjRccWxcbGFuZzEw MzNcaGljaFxmMVxkYmNoXG IzNPqhA0rzKsPjJqHkMsq9 YMYomDSxRGDmLpo7GWOxgB NoLZKOpSpfkF9lEBXsuSvd hA1baKH5RQAtxeCbbFQHiY 3yWMOIeK9pHzYwUBDcUiM8 LTcxNjNccGFyfX0= CPT Code(s) (test code m7ekaXXnHQJcbXF2FsDfDP = 3357) Vjf4tgk2TjdYWzwOFpHQmx lXYhsfIisu91rAN0uZ27QD 4eDHHtGeF1AFQhuzG1Mtu1 UYGaUIHlkEQbS054x4eqt6 nkvdDiiZY5mWecKQHxBFUp YWluXGZzMjAgODgzMDUgWD GlXAm3DsEiRDujZFSggr1= CLINICAL HISTORY (test u2osfIYfZGCetYE1EwNqHR code = 3356) Qkd8zxi0MydOHhwGWdZRma pWHmtaFfht02fRN4yG08XN 2wKXMrKpE0JQJypeA4Obb4 DELtQFTjqDVmB495y5zco0 jtvnApuIH3mDboHNPjXKMd DLokYWCwXtJnPTciIfR5fC SsaOlfSPYgp9RdlEKtsFAb n021PUPqs75coQO6ZFJps8 q5hHWkdNUlJTYhguOmCKmv cGT3evXhdCJkwD5eiS2sHG UxuTymDgWms96gmFYtw49p JFVmu8NmS2cqoLCkANExfo Jem8XbQh9hvGdhfY7zsSDh xFQtMEKebUlxATMyx9IiX9 UgXHBhcn0= SPECIMEN SOURCE (test n8dmpHQqYJFsmWR0ItLuIQ code = 3377) Pni6ddb0FhlJNthIQxTFct cNMjikTjrw94jKK0nF39AW 2mEHZtNgH2CUYopuA0Aar8 DNVjBZRdrPJrC020o9nuz8 fwdjWsmJV9cDezFJFeOCJh ETroQJYfVxMtUX9dY96glG W0sNOykFHiNBTfWrWsJNFr BS86LrPVUsMMf15nMCasJV J9 GROSS DESCRIPTION (test j3pezAZsICBncPM2FbUuVG code = 3366) Xgm5pfh0KmjDPuqIKxJUmm vJDezwIujb00uCA1yO84PN 0dFOLzBzV6QCEqkoM9Xrb7 JEAxSBOttDFaM917w3ram2 oyhbRxpSF8lBjlDZPfPDYx JStlHTDnJtPkET5rAZkqYZ ByIPJwhFCkZBehCSYlU6Dg wbDqICbbKRCqY42coJRspo LjPNxofTvgYd2svFFoeE0z bTHuCYinLNI2lPUwWNE8nx MsPFNjQX63TAetUA60gPJn JUOoEEZsQFSuz58dfEO4pA VilPFwVKIuVpNoWEGdGX50 Tn5sMBLvJ18oy6oabFXae4 QuWBOhPWtlHR35AVwyBS7z BEWpWIYmNZxmSW89GA1qKR Nxkd33cPs7CNE6yZZlzTEz q4aqN0rkeZZhRy5iOVedeC QdiTMgVwYYpQVrsBZ1SHEr rD5qWMUnXPT3YJLpqUbemN GaPMGpXQcqlSGaG6B8jU6d FoPnRXQmdyvyOIYkYk0xEA hlIHNwZWNpbWVuIGlzIHJl R0DtclNdKZdvLSWfN80ksL ZdqnToNMjcpFwdVt8moWPc sW0xgYWgPYxjTGE0rKVdIN H6amFhCLMqZC37DJgqRQ98 yQJjECLdZYEzTAUzAw9kAK CmGAt0NALsbpIso3HvMO2p AMSsRU84VJxsASG8HUDfI0 4mNbWfC82lgiIre1HxXw4u TNB4cPTvKJKnaIfpsObyjp MrBUQ6uSebT1EbXQHtf3Br PXOxY0Qzt50xJKEuopOwi8 OpkLg8lMXoFJbaHRPqFLQm kEFwIHZlZ5EsT3khwIFprE dezd1yKSRbE9RqSIHvww8= MICROSCOPIC DESCRIPTION a9cgnIQpKVEruQQ6OuHkWD (test code = 3371) Xfb6mbp2IzrFSqcLMsIStj zPItfaPuze21wCU6iI61CG 9nYJTzZtW3BCDrdrK4Hed7 KJBzITVooBXkQ725l4out1 mxabNquTM4dQdkVSBbFFIu REroYEYnTuEsAQ7YHiMBCF Mls8YoTAUtANfkRWL3 Gross assessment was [facility] performed at ([facility], Department = 2777) of Pathology, [address] [place] [address], Technical component was [facility] performed at ([facility], = 2778) Department of Pathology, [address] [place] [address], [address] [facility] was performed at ([facility], Department code = 2779) of Pathology, [address] [place] [address], [id number] 09:25:00 Test Item Value Reference Range Interpretation Comments Case Report (test code Surgical Pathology = 104) Report Case: [id number] Authorizing Provider: Laura Nguyen MD Collected: 09/26/2020 07:56 AM Ordering Location: [address] Med/Surg Received: 09/26/2020 08:55 AM Pathologist: Hilda Mack MD Specimens: A) - Soft Tissue, Debridement, LEFT FOOT BONE CLEAN MARGIN. B) - Bone, LEFT FOOT 5TH METATARSAL HEAD. DIAGNOSIS (test code = t3xshMGxDNIxl4inLGKabM 3220) FuZzEwMzNcZnRuYmpcdWMx IHtccnRmMVxlcGljOTIwMl qzwxUtBEXywPHpG2Mteczg BLutCZ7nZP0luJwlaLKysH PdXJAxSjUqw4haa952gNJg e4ugYNBTxhbwzNa6cZvoH7 5oh8W1QxxwN99vhTFpMQmh bGFpblxmczIwIEEuIEJPTk TlBEsJKkVxUo3HSJKBFLAQ MzVRPCFSHE7uHHGTW0KFFA vkoHRnVKVuMA2pIr6KVNDJ TrFtQlcLWk5LW12UEUDBHC EOBLOXV6RPJBtuTzGTPHIK CyJvXm4NYFMGCKYJVO1IHQ VPTVlFTElUSVNccGFyXHBh leQJFhYAT33HFTOXABOAEI IKM5ObIVGBMS8LRBQCTFTM MIuaRGDVFXyzUD1DTOFOGV xRFvrpsBWtAJFtUP9hFOVM PUSbOM2TBCVWDi0QQNRnA2 BLCG8CLSAFQDUBVsKwfEXq cXrkfjIfALojc1MqDImrCD VhON7kxDduDTOxZI3yZAGs A5qwhV6tuwj7FdElSFZoCp R3PJMvvkN7Xin3CRJgLIce a9tap4AxDVHnVTn1aYtwLf OfKGSql9ehtbBjSzKrQVTk PFDyHVNzfKKsO947r2lrt9 ogaiCsiMX8XCZySWZ8GTmt ffNibnA7LOytlGTgPbY1MR tccmVkMFxncmVlbjBcYmx1 JHRqC284MAU6bWiuw9eoSR C3QYFaVOPtYrKmCj8pxNLe O584ILIhWGHNVQLjoMm6SR NimuAblqFbfAQKh762X906 j2bzFXYuccRglCpCbeswg2 brK910CAQmoZQegkXhWiBj KUQblYEdkTG0HXCmTP0xmj gyRQjqZYmqIYQoimY4TCPs cQPtY3JeSVGlDT7cuojsCQ N2EQhyNAHaQTI9DgVeKVOb b8Kpzvk8CaTgqb2zwv25ZL W3w8KzvAzgEVR4NTD7KlCy Ou8kzVQaQBBjXU8dAbCiqH NjUHFbde20mYurAUghSPH6 HGQwnzAmj1Tvk3dbUiNwnh IlI2jyF8ShKWCwQOCkKTYm HnSnauByn5Fbr5YceFTylT c0n3oeYFItLXPqvZvav6us OZK2XXZmeXRjO6pxeC0nLQ DxFZ3mlgcay6ytAMnaRHlb PWFagGM5tcK8NDObyQXfI1 SnpK6cFIOvSEdnADSkfnc6 MrAsPc5ujITexTfdPDwrDn twYWdlXHBnbmNvbnRccGdu ZGVjXHBsYWluXHBsYWluXG YwXGZzMjRccWxcbGFuZzEw MzNcaGljaFxmMVxkYmNoXG SyLDvlV6adQaYgEtThIkk7 XDHjoSUhWDZyZfd2BSVjqY CvJUXRvJcbhJ6gRDHhfCsd mP1bgBN9YZTtnbThnVQJjM 2zLRBMkE2qUnZmJSOqDtQ1 LTcxNjNccGFyfX0= CPT Code(s) (test code m9eaaCBjVLAmwWF5LsInZS = 3357) Fti1yij1TkdUDttJGaOOke qFUjowXpgw96fOK5jW84WD 6nVHPcHxE4NNJxrkR8Wco0 JRXmKWSqxRRoS019j6pdr4 yhjnFvwBE1sAnqSGQoQVCx YWluXGZzMjAgODgzMDUgWD HjLBo3LsKvJOpuMPWlte0= CLINICAL HISTORY (test j0hvuEWgHUGixQJ4TyYeWQ code = 3356) Dtg2uat2NatEMidTXxAPps eXDeyaEixt24zCH6rX19MQ 9bPDMcEoP6TNPnoaS9Zsn3 REPeBQVorCXbN577j7ojo9 hrslJxjKI8vSlhEVHdTDAf WYclSVJqZwTiKKlkBiD8eQ VgzFybQJLsd9FyuWKfrEZx y554VQEjf93hgGY7ZLFrw6 t3oSPifOAlQDOrolPtPBbr nDC2pfWicDSxiN8zqQ0nWM KpyFtyUwSwj23pyDXil64h EXPpc2PmO8pwwVLrVECotm Dfm7EsKl2yzJiuxX9qvRHb fIPoFIFmlYqbCITya0AhT9 UgXHBhcn0= SPECIMEN SOURCE (test d1bhwVBrZLDsjSP9EfSqKO code = 3377) Ebv5jbl9MliZHpvZZfTZwp zWNqodDfyr99cKQ0wD87UU 1dUIKqKrR1ZALbohR5Cbc1 XLQsQTByePIhE292t6lyf4 jbzvGebUQ2xCvqXWQkYFMh PRyxQTYfHmBgOJ4oJ67uiO H8qXYmpLRkAJCsQdDvVKAi IF51LlHFFrIJl57bVQnsJE J9 GROSS DESCRIPTION (test j0cwbCPtCPUtnOT2UkBoFC code = 3366) Mer2dxq9SgwDLxdTTaISft uHUkuiDqhn02gGN4aO99QC 5uTIDoGlW3BAObjqB6Kid5 UXSxFVTvdYEaC079p7msq9 wltwKmxSY7fKkmGNTkWWGy NUrqMIWzBuNdWC2nTKojSR WfTFPquKCgMZbsAEIxZ9Vr soArJPryYOEaS92zqYZpsf BnFOqmoPmnDv8rkCFcuU9i kBNuCAyzFWS2vANiUCP9jd BcGIBsVO97PZonYH56vXNc ZTVxMBDxGPFpi18pjUY3mR QewBFeJQLxRnEoONSmRT39 Cu7yYEEhC61zw3njeLVfu5 KnGXCxDIflPB78QRmlNS2a RAHtHFLeOQggEE63YR9dVE Inrm10nDm3YJR0qBVrbLSu p4taI8hyzASpZj8tLSpqdU EqsKHfPwERsQAwaPE6YEQd uC2dNHLqLUU4YECawJeidL YwWNSbRXmswAEoC4I5rF1b PrNdMQIxfnikVHHkUk1yVM hlIHNwZWNpbWVuIGlzIHJl A5WxycXiDJdtLUGzA99dzJ AonxQsNMkboQzvVm9piVRn mP4ujOWvZOclONA7eWXtRM I4tsQyGHGhDR65AXptQC86 hBThAYOjKXVjGKVgWh5hPI TcSHn7OUJsebYfr9JlIG8g GDDxRO91TXmvUWG0RSHqD6 2kUgObL11irtGqt8NoZu7x UGU1yKVgXILfkWgkaLhnyo YtYCB2lZirH8QpKWBsa2So EUBuR9Pyx11cUWOvkqDxh0 OcnBo0dNLfRXxkFCPyQSSp zSViQEVmC9FuX5hoqKGeyA mtlr0mHVBeC5CsATOylf4= MICROSCOPIC DESCRIPTION b6zzfAIqIZFvtKU8LfQcBJ (test code = 3371) Uch7lue7UarHTclVSiXFxt hNKoplRejr27qDP3tL95ZO 1sPGPaZlV0SCJyjzE9Jxx0 KVLwKPHqkMYwW807o9ejs0 bffpSesDG7aMgmUWKlWAIw HDztJPHnJyRzIL1NCuUPMA Omu8YmLWErUXxcPRM6 Gross assessment was [facility] performed at (test code Hospital, Department = 2777) of Pathology, [address] [place] [address], Technical component was [facility] performed at (test code [facility], = 2778) Department of Pathology, [address] [place] [address], Professional component [facility] was performed at ([facility], Department code = 2779) of Pathology, [address] [place] [address], [facility] [id number] 09:25:00 Test Item Value Reference Range Interpretation Comments Case Report (test code Surgical Pathology = 104) Report Case: [id number] Authorizing Provider: Laura Nguyen MD Collected: 09/26/2020 07:56 AM Ordering Location: [address] Med/Surg Received: 09/26/2020 08:55 AM Pathologist: Hilda Mack MD Specimens: A) - Soft Tissue, Debridement, LEFT FOOT BONE CLEAN MARGIN. B) - Bone, LEFT FOOT 5TH METATARSAL HEAD. DIAGNOSIS (test code = [id number] 3220) FuZzEwMzNcZnRuYmpcdWMx IHtccnRmMVxlcGljOTIwMl eimiHqAFWqfBAwJ8Vtcxyz SGbqRD3nCC5ubJwgmRQyoN VtWGLuFvSav9zqs529tKBv g3ykYYGRjxfakYj9dVgfM6 8xb6A7VhggA14ymEFcYMed bGFpblxmczIwIEEuIEJPTk VcJLsIRnAbBz9KCQWQVHYE PqBSSADVTJ3uAFOFE5ICRX lnoTRiSHAzAB2pQi6UTLII NcHlOhiEGu8AF24EOYBAWF WWIEWVJ7JICNexDlWLALOK OrGgTq4LBLIAXMSDXE8OMQ VPTVlFTElUSVNccGFyXHBh rsRZGhOTF40OQMQGTBRAOC WRE2GjDAPHOX3VUWZBQRNN BVklNQLZVMjjWB8PAQXVNY pNKtcqrQMuGOCdPY9lQHET XFNeZP8RCRBMPu5EZNWxA2 CCQD2GJVIRUWVOEcVmoKDx vBncdiScUNeek8FkJQviGV OvYV2ryKseNILdWH6lNCGt N3krkF1eprk1IfIbQQSuRs G4OWXqazA6Ton9QBFnKDkb c5szl7GxTHMoMMw7qDhxKd WpYZLgi9lttmFwIcVuIUSw JZHqKCNeyMQsJ979g8txb5 kpxjKduHH0AZMsADL8RMtm fkEdysY6CDquzCQmSkP1PY tccmVkMFxncmVlbjBcYmx1 LUXkA253UES8wFpjr4wwME D6LVTiTHQvAnByXe7krQBp T657KRFbGZOZOIPqeAn6RZ AvpjVjmqKviSIUx635S758 f0reZLMtnjEevPlMafhtm0 coE218WPSahCWhzfSsBlSh FOWqdJEehRX0HXMsVO6ayj wwAOpcTYimSQNyvxD1TBSh wIGiF3IiMPXnBH5hgjhmCV R8UFbnFVViTLL7RxXsLVEu j1Gliyz8SlCrvw3vsv85YB K9y7GhjZegSEU7XTJ4CjYg Wc7upXYgHQHpJO4wSkIhqE HfIXYrhs98lWaaIQlmFPM1 ZDEmpwVjh4Tav4wqMoQson RpG6byZ9CpKLNmUBDhBUOm GpMsyyAaj5Sfd3XvzKYrvQ z0k5ygGBAtMXXudSipm5fw SYD4RWZiiPTiC5zgfJ4qXB LiDH3saplla1skALzjJOof ZQWcjDS1rdM0JJSlgHGsD9 OksQ6hUNRkXZrmZQItlhw8 ZwIlEy4igQRliIrmLYfgAh twYWdlXHBnbmNvbnRccGdu ZGVjXHBsYWluXHBsYWluXG YwXGZzMjRccWxcbGFuZzEw MzNcaGljaFxmMVxkYmNoXG RiZWlyL5btOoMxErFzEuc0 UDGorEGsVPQyUgs8STDzrP TsHVHZpPheeE4uZWDohVoe jQ1exHV1PSImbjGsiQGVoF 8wINXWvR1uBwUpTOLuBuP8 LTcxNjNccGFyfX0= CPT Code(s) (test code n6zbjIRbKEUgiVZ4JjXgXS = 3357) Yjm6txx5DwqVNtyUUiUCvo kAWhjoNudv60lHR6iE97LQ 0nXVMrHxR7EEZcbxL5Jkw6 SMQtOWTsqLWfR916z1obh9 jyuwOuwNU0eOrbVGLtOLTw YWluXGZzMjAgODgzMDUgWD XoAUb6DzSmZSbpFBWpda1= CLINICAL HISTORY (test a4hvcAHiILWfdYY4XaGxCG code = 3356) Azw8wgc8TlaYHniYCtOGoz vYUypfQpmw07uPP5kH24AD 7iSDTuCdB4CCXdofZ3Yoc0 KROqQWJyiNKqW706m8lhz7 hfyxZohPI1nLovOIXcLFHp MDivCFBwShNaKDeeAmP4jZ IceMpbGXZky1VirZJgjTNm h053SGPwt98axAP4OPEbo0 h5pDHtbVLwCHFoflWqWXot vCJ8cxQcrTXmkF6brO5lFL IimRqmZjMmy00nbCEcp33x EVVsd3SiO9uuaUQaVLHeqj Nvm1TvCe2tcGjmeH4fmAFz lWVbZHWrpLsoSCRix0PnQ8 UgXHBhcn0= SPECIMEN SOURCE (test c0jllEFnHACnlAF2BvDwZW code = 3377) Ujz3kzo0AtxZPcgFQkAKam vRZlgpOmnf20oIO8lF12FV 2tOHEkQmY1RDNggnF1Zpx8 QKHiGGZhyHYfT814w5unv5 crfdKaqUQ2bCmsUQEeRRYv JOznZCPgZcIuJG7vC72gdZ Z4zPVaqWNqKGWkXrWmMYTz YF81FcPWPxXTv34jJNghNO J9 GROSS DESCRIPTION (test c6pbmTDdIMYthOI4MvWuEO code = 3366) Nwu7tlo4ProAFyuUAwZTmk rBKzzxSgap40yMC3aA55GG 3wJDMuXnS6LFPepxW6Wem5 NEIgGGTsnYYkJ107k7ykk9 biaxDkdHJ7oQwwSCFuQWRs ZVmmSIOfDeEgGH2kDYqlRP KxXKKfsVGuMOueUMHaI4Gk iwNtSYgrIKXqO52gtYQhnp OiVAsffOchAk1rtFIwwH1i nNUpEYdvUTE0ePChEIA7tc BmIIXsKW39TTnpUD72kCDt LWKdUJEfWGApa93yqWT4wY TorNBuZUWfPvXiIQOwYP47 Qq1iXXJyQ87bc7bnaUEdh8 LsMQZbMPglGX62ULzwOL2i YJMzUFPhCBmgOZ04EJ0rFI Jqjo34nQw1QCX7hPKdzEJz v2flP3ghxMNeOx0qETccpR LvwWLxAeFFgANphEU5OPHt rK3sIZWyMYA3GLCgmChnqW IsTXZfICxukABjR3C3rX3c PwSfRLOcgnygFHNvTt9rHX hlIHNwZWNpbWVuIGlzIHJl M7QtitQlHBwuLMEqR80ieU RsxyPuZNtckXodTf8ffYDd mB4cdTSmZPxbUEF1lUHnUZ V8jdKpDFCtSN60TEvbRQ17 kYHtZJGvVDWkYRItDa6kLS DbRTl8MFWzdwEtd0UmOR2y YIGlKB19JKquLRU6CMFlT2 4uDwHnS66cqvSjp7JiOi5j YCA0nQMvISRmlFkzcEaxrj GvENL4mGdkH2KlIWTxh3Al GVDnN7Fcb19xQQRmglObq0 QiwVy2oJXfSMfuHIGwOHNh gHJbRMJhR2TsI4cxiAQcfK qrvw0nFDCgB7OtVZBabb2= MICROSCOPIC DESCRIPTION m1ptnGGzBZFqwRF4QzBoAL (test code = 3371) Uud8dfp0DkqSChfXJeDVja wWIiinGdtx24hAT8eV80DC 1kLUHmEuI4CEKsuvX3Ykx3 IAIzNWPoqHNmC818t0ccx7 ehgzKqgPQ7mBlgEKBcMMQu OKzuMULlSvWmKN9OGqKDIQ Zlt4EzQOZvXRgtCMM5 Gross assessment was [facility] performed at (test code [facility], Department = 2777) of Pathology, [address] [place] [address], Technical component was [facility] performed at (test code [facility], = 2778) Department of Pathology, [address] [place] [address], Professional component [facility] performed at ([facility], Department code = 2779) of Pathology, [address] [place], [place] [address], [facility] [id number] 09:25:00 Test Item Value Reference Range Interpretation Comments Case Report (test code Surgical Pathology = 104) Report Case: [id number] Authorizing Provider: Laura Nguyen MD Collected: 09/26/2020 07:56 AM Ordering Location: [address] Med/Surg Received: 09/26/2020 08:55 AM Pathologist: Hilda Mack MD Specimens: A) - Soft Tissue, Debridement, LEFT FOOT BONE CLEAN MARGIN. B) - Bone, LEFT FOOT 5TH METATARSAL HEAD. DIAGNOSIS (test code = q3fooHSjYLBtd7jbIWAwmQ 3220) FuZzEwMzNcZnRuYmpcdWMx IHtccnRmMVxlcGljOTIwMl uljoBuGXNvqYQdE3Xtwxcw TNmeHB4kXM9aoCrtcEBfoM VlAZUnGpBmq3bfj735bGGd q9uzPUNLrkunrFl6uPgqG5 3lm7Y8HqdkG91gyJAiURoh bGFpblxmczIwIEEuIEJPTk LgRNsPEdZtAn7TGPFYTRVN VdIBKRDAFE9bPFSJF7ATIT frgRGcUELjMF2fAh9XKAJT DkOpCyxEMg4ZR77TDOATGJ CUHODMF9DRZVfhRtEKSMND LcZnDq2EFQYYIXQBWB7OVH VPTVlFTElUSVNccGFyXHBh roLNGaTTR53IKGGOEVUILD JTB6ClQMQGKS2CFCLNFEPG RBnnITPUAGooAB7JLPILLW dTQtxpeZGnYGBrWO0wCLNE OUJrGP5MINQZTh1OINNfF8 HBAL1HPVSOIVNQNcJhmICr lIjsytFiFFazi9SlIOypIW GyYV5qjExtPKLpKZ2iYBZz Y2zoyP9yyta2GvRuBMZiMn A6HWImjjE8Ldt5DXQnSNhk d1xes0OiFZMzCEy2cHpdEx WhNKKvj0wevhTgYuLdNRHy RKWnJIJalGKoW394u3brz1 ivlrMmrNY7AWDsDTI8KXaw mpQacjG6SZorcKJeOuJ4JI tccmVkMFxncmVlbjBcYmx1 UYWdQ033IYY3jLoxp6qgJX X9POYoIBIhJgRcXt1dhMKm O659SADzKTVRQIUqwAj3QK BukaOnbfExkORIw744W853 d2ryTRLaykIveEhWmtuso1 abY235EKHejTMgfgRfPlBq LVVvaJVtiVC1IPSbVP1fpr xhPDryISyeWYOqleK2VDWb nQAkF7AtXYXiBI7ceusgEO U1XDvgGEVxLLD2DxRjVYLl j4Shhjy5MyOyxx8huo54GS V6v5RqcFaeFBJ9RWB9LmTp Tj1qqUAgUOChAZ0yZvLrbZ HdMPNdhz15pYhqVWioLVC6 ELWgwtIge0Sqp6nnEvAjwa PdU8cvX5MtBHMfLBAjPHCj IvWkkgYpv5Wqx9SvoZIhcY f5n5ioRTZjMGLjyWrvn2gg MFF8DXRqfGXaN5xhfH2xPR SzVG3avljcf3xiKFgdLXfr YNNfpSY2mgM3EVTmiEEhP4 UikP1rUIVqTBqoDGGrcnd1 SbKvEg7axTRnwAetMChaQr twYWdlXHBnbmNvbnRccGdu ZGVjXHBsYWluXHBsYWluXG YwXGZzMjRccWxcbGFuZzEw MzNcaGljaFxmMVxkYmNoXG DsVIjrK3ioFcGwXfTxFwj2 QNPcmUCsQIZgOpj3CXNrcW RaFDCFyAgwnW2pITHxmOqa gC6efUP6SWLbhaLazIBLwF 0wWJJAlP4sTnCgOSWsXxP3 LTcxNjNccGFyfX0= CPT Code(s) (test code u1imfDNlQOBahNF2AcRsHI = 3357) Ywd1kpa3XqzDPpqDCpBKnx zFXrbjZocw46qCA6zE01MU 3lYDOwPfX4JHNnwdM9Otx4 JCQgDKBokRCtP038e4haw2 bnrwMehNU5cKptACYaLOVm YWluXGZzMjAgODgzMDUgWD MvOIk9NvEgBRygLOKovd5= CLINICAL HISTORY (test s6pilKPsSHVqhKF2WhTyUP code = 3356) Fhw2uqt4AeoDBwcXTbAVwh rXZrchVaxx62qOQ1aR76WW 4jWVWaYeT6FKLeicM9Pni2 UFPcZAUucFDtM135w2kpq0 vbsuDesUB9lVetKTAcIGVh TEmhBPQxOfKcJIzjQxN1aS HuxLimRQDqq5CntZBxsNEy g491UNRzr17wcWS6PONuv4 c2vILurJXsUAHaipSmVRwc zFU7cyQcpXPujR2dlS4nBL UbsZaqAfZre21naNAxq81g LDYld2QwF9ejjYVgLESimx Opq8DsQt7jzFyunN1wgXNn bCSbPGEdmUmzZISgk7YtO2 UgXHBhcn0= SPECIMEN SOURCE (test o9tvnWNkFXLvuAU7XgSwXY code = 3377) Tfh2bdu9JmgUGyiFHaLThe iWLlhjHznu09qWR9kQ50BL 3kMEPjRrF3CUXkcjH3Llj7 PRUpQPVbbDIiA546u6oda3 kksdMpyWT8xWkvLEKaVWIw LHfwNJBuFuSpWC6qX01yoE Y4jKHweRCiMLGfToZvWEHx JM96QfWYKgAJh34pOJhmWS J9 GROSS DESCRIPTION (test b2nyhWPmJEHwiNQ2JsCtQP code = 3366) Ivn4xyt6JzaERgtTVpDGds pVCjoiOqjp85iMU9tZ74QB 9fNAAjIfZ8IVNbquS6Khx2 FIEzQIHzvGHpC374o2vkg8 vdblZzyKV4wEbqRWFgRJFv GJtfANBvRbFmVR4rKZlzYX OxCTTqmVXgQQvfCYRcP6Jk ejLzRVzlCNKbQ61jwYLdlb EfVKdeoBwmBe8ctZXklW9w pIEuOGihYGR8eSSzNLN8gu QnWTDbFL54OBeoMF03bGZg ZPYpALIuMSPtb42cmZS2fB PeyVZaTCZaZuJqKOLgQG17 Tt0aSREyM17ke8djjZCxk7 EmBFHpAZofAX19AMlyDT4o REHpGLAcKKvaNA47NZ3xGF Ordw40mLa7VZK5dIYmqZSi v9atO8gjtANmIw5dJEvuoE KkcAUxIiEMcKXgbGU1EJId uG2rZRXkFYQ2XHTolCchnH LwZAXwEPdkvKRgO0S6oD2x YmXuKKIfxekkULPoHv1oDS hlIHNwZWNpbWVuIGlzIHJl N6NqibHmOOuwDXNqL09jtY FcmzLnYArbdWcyPa9xkVTv jL0ssCCvPSbdVPP9yFSzFN H8aoFdACOlMF58CSrlZA30 xRUkUXOkCQOyGUTfWf3xQJ DuVYy3QZZhvpLbh2TiIK6a YCMeOJ71YScsQGA6PJPyR2 2sFbPzP26fqsLwi6EcWz4w QRZ7zHHvJIBkwElqbZemxx HhGIL6wLneL7UrRNTcn2Kq ROTmD3Yry60dLHEhpeUxk3 NpyJy5iUNeJCziDUBlKHXf qNVmEJRwK0OqU4otfJQizQ jagb3jXTYwK3JnWTQmpb4= MICROSCOPIC DESCRIPTION y8vocVCoNEJljBB7CyMjCD (test code = 3371) Mps7liu3DdgWJfbMFxULeb nUXqavQqnn15ySC7wQ22SQ 6bCFTeGkJ8XCItpmW9Sys3 VKCyDGBzmOXdJ776b1ygo7 eoiyDlgKU1cApbYSDeOENf NRwwVCAbDlIvDF4OTkQJLX Tzh7CkEYSkAPqkXCC5 Gross assessment was [facility] performed at (test [facility], Department = 2777) of Pathology, [address] [place] [address], Technical component was [facility]. [facility] performed at (test [facility], = 2778) Department of Pathology, [address] [place] [address], Professional component [facility] was performed at ([facility], Department code = 2779) of Pathology, [address] [place] [address], [facility] [id number] 09:25:00Surgical Pathology Report Case: [id number] Authorizing Provider: Laura Nguyen MD Collected: 09/26/2020 07:56 AM Ordering Location: [address] Med/Surg Received: 09/26/2020 08:55 AM Pathologist: Hilda Mack MD Specimens: A) - Soft Tissue, Debridement, LEFT FOOT BONE CLEAN MARGIN. B) -Bone, LEFT FOOT 5TH METATARSAL HEAD. A. BONE, LEFT FOOT CLEAN MARGIN, BIOPSY: - BONE AND FIBROCONNECTIVE TISSUE, NEGATIVE FOR ACUTE OSTEOMYELITISB. BONE, LEFT FOOT 5TH METATARSAL HEAD, AMPUTATION: - ACUTE AND CHRONIC OSTEOMYELITIS Signing Pathologist Direct Phone Line: [phone] signed by Hilda Mack MD on 10/01/2020 at 9:25 [id number] X2, [id number] D1Cegyigan ulcer of left foot associated with diabetes [...] submitted in B1 after decalcification. [place]/Shyanne-B. Performed. [facility], Department of Pathology, [address] [place], [place] [address], [facility], Department of Pathology, [address] [place] [address], [facility], [facility], [address] [place], [place] [address], FQE-Glucose [id number] 12:31:00 Test Item Value Reference Range Interpretation Comments POC-Glucose Meter (test 178 mg/dL 70-110 H : No tified RN/MD: code = 1538) TESTED AT [place] [address] 478: Cake Icer/Techni cornelia ID = [id number] for Salvatore Ramírez Lab Interpretation (test Abnormal code = 26639-9) [facility] [id number] 12:31:00 Test Item Value Reference Range Interpretation Comments POC-Glucose Meter (test 178 mg/dL 70-110 H : No tified RN/MD: code = 1538) TESTED AT [place] [address] 478: Cake Icer/Techni cornelia ID = [id number] for Bassxochilt, Zofiaare t Lab Interpretation (test Abnormal code = 89703-3) [facility] [id number] 12:31:00 Test Item Value Reference Range Interpretation Comments POC-Glucose Meter (test 178 mg/dL 70-110 H : No tified RN/MD: code = 1538) TESTED AT [place] [address] 478: Cake Icer/Techni cornelia ID = [id number] for Bassey, Zofiaare t Lab Interpretation (test Abnormal code = 16654-2) [facility] [id number] 12:31:00 Test Item Value Reference Range Interpretation Comments POC-Glucose Meter (test 178 mg/dL 70-110 H : No tified RN/MD: code = 1538) TESTED AT [place] [address] 478: Cake Icer/Techni cornelia ID = [id number] for Bassey, Zofiaare t Lab Interpretation (test Abnormal code = 48584-3) [facility] [id number] 12:31:00 Test Item Value Reference Range Interpretation Comments POC-Glucose Meter (test 178 mg/dL 70-110 H : No tified RN/MD: code = 1538) TESTED AT [place] [address] 478: Cake Icer/Techni cornelia ID = [id number] for Bassey, Zofiaare t Lab Interpretation (test Abnormal code = 51682-5) [facility] [id number] 12:31:00 Test Item Value Reference Range Interpretation Comments POC-Glucose Meter (test 178 mg/dL 70-110 H : No tified RN/MD: code = 1538) TESTED AT [place] [address] 478: Cake Icer/Techni cornelia ID = [id number] for Bassey, Zofiaare t Lab Interpretation (test Abnormal code = 08785-8) [facility] [id number] 12:31:00 Test Item Value Reference Range Interpretation Comments POC-Glucose Meter (test 178 mg/dL 70-110 H : No tified RN/MD: code = 1538) TESTED AT [facility] [address] [facility] 77 478: Cake Icer/Techni cornelia ID = [id number] for Salvatore Ramírez Lab Interpretation (test Abnormal code = 80131-5) [facility] [id number] 12:31:00 Test Item Value Reference Range Interpretation Comments POC-GLUCOSE METER 178 mg/dL 70-110 H : Notified RN/MD: TESTED (BEAKER) (test code AT [facility] [address] [place] [address] = 1538) [facility] [address]: Cake Icer/Techni cornelia ID = [id number] for Coyn Osborne Basic Metabolic [id number] 06:00:00 Test Item Value Reference Range Interpretation Comments Sodium (test code = 138 meq/L 827-064 2335-2) Potassium (test code 4.3 meq/L 3.6-5.5 = 2823-3) Chloride (test code 101 meq/L 98-106 = 2075-0) CO2 (test code = 31 meq/L 20-29 H 2028-9) BUN (test code = 54 mg/dL 10-26 H 3094-0) Creatinine (test 2.16 mg/dL 0.5-1.2 H code = 2160-0) Glucose (test code = 177 mg/dL 70-110 H 2345-7) Calcium (test code = 8.9 mg/dL 8.5-10.5 87586-0) EGFR (test code = 33 mL/min/1.73 [place] [address]-0) m NOT ACCURATE CREATININE CLEARANCE IN PREDICTING GLOMERULAR FILTRATION RATE . ESTIMATED GFR I S NOT APPLICABLE FOR DIALYSIS PATIENTS. ISSA (test code = Cake Icer ID - ISSA) JBERNOperator ID - JBERNOperator ID - JBERNOperator ID - JBERNOperator ID - JBERNOperator ID - JBERNOperator ID - JBERNOperator ID - JBERNOperator ID - JBERNOperator ID - JBERN Lab Interpretation Abnormal (test code = 67755-7) [facility] [id number] 06:00:00 Test Item Value Reference Range Interpretation Comments Sodium (test code = 138 meq/L 694-289 3542-2) Potassium (test code 4.3 meq/L 3.6-5.5 = 2823-3) Chloride (test code 101 meq/L 98-106 = 2075-0) CO2 (test code = 31 meq/L 20-29 H 2027-11) BUN (test code = 54 mg/dL 10-26 H 3094-0) Creatinine (test 2.16 mg/dL 0.5-1.2 H code = 2160-0) Glucose (test code = 177 mg/dL 70-110 H 2345-7) Calcium (test code = 8.9 mg/dL 8.5-10.5 58019-6) EGFR (test code = 33 mL/min/1.[place] [address]-7) m NOT ACCURATE CREATININE CLEARANCE IN PREDICTING GLOMERULAR FILTRATION RATE . ESTIMATED GFR I S NOT APPLICABLE FOR DIALYSIS PATIENTS. ISSA (test code = Cake Icer ID - ISSA) JBERNOperator ID - JBERNOperator ID - JBERNOperator ID - JBERNOperator ID - JBERNOperator ID - JBERNOperator ID - JBERNOperator ID - JBERNOperator ID - JBERNOperator ID - JBERN Lab Interpretation Abnormal (test code = 28825-6) [facility] Metabolic [id number] 06:00:00 Test Item Value Reference Range Interpretation Comments Sodium (test code = 138 meq/L 746-415 3840-2) Potassium (test code 4.3 meq/L 3.6-5.5 = 2823-3) Chloride (test code 101 meq/L 98-106 = 2075-0) CO2 (test code = 31 meq/L 20-29 H 2027-11) BUN (test code = 54 mg/dL 10-26 H 3094-0) Creatinine (test 2.16 mg/dL 0.5-1.2 H code = 2160-0) Glucose (test code = 177 mg/dL 70-110 H 2345-7) Calcium (test code = 8.9 mg/dL 8.5-10.5 07664-9) EGFR (test code = 33 mL/min/1.[place] [address]-4) m NOT ACCURATE CREATININE CLEARANCE IN PREDICTING GLOMERULAR FILTRATION RATE . ESTIMATED GFR I S NOT APPLICABLE FOR DIALYSIS PATIENTS. ISSA (test code = Cake Icer ID - ISSA) JBERNOperator ID - JBERNOperator ID - JBERNOperator ID - JBERNOperator ID - JBERNOperator ID - JBERNOperator ID - JBERNOperator ID - JBERNOperator ID - JBERNOperator ID - JBERN Lab Interpretation Abnormal (test code = 68938-4) [facility] Metabolic [id number] 06:00:00 Test Item Value Reference Range Interpretation Comments Sodium (test code = 138 meq/L 088-680 6029-2) Potassium (test code 4.3 meq/L 3.6-5.5 = 2823-3) Chloride (test code 101 meq/L 98-106 = 2075-0) CO2 (test code = 31 meq/L 20-29 H 2028-9) BUN (test code = 54 mg/dL 10-26 H 3094-0) Creatinine (test 2.16 mg/dL 0.5-1.2 H code = 2160-0) Glucose (test code = 177 mg/dL 70-110 H 2345-7) Calcium (test code = 8.9 mg/dL 8.5-10.5 72054-5) EGFR (test code = 33 mL/min/1.[place] [address]-8) m NOT ACCURATE CREATININE CLEARANCE IN PREDICTING GLOMERULAR FILTRATION RATE . ESTIMATED GFR I S NOT APPLICABLE FOR DIALYSIS PATIENTS. ISSA (test code = Cake Icer ID - ISSA) JBERNOperator ID - JBERNOperator ID - JBERNOperator ID - JBERNOperator ID - JBERNOperator ID - JBERNOperator ID - JBERNOperator ID - JBERNOperator ID - JBERNOperator ID - JBERN Lab Interpretation Abnormal (test code = 92244-6) [facility] Metabolic [id number] 06:00:00 Test Item Value Reference Range Interpretation Comments Sodium (test code = 138 meq/L 663-372 3215-2) Potassium (test code 4.3 meq/L 3.6-5.5 = 2823-3) Chloride (test code 101 meq/L 98-106 = 2075-0) CO2 (test code = 31 meq/L 20-29 H 2027-9) BUN (test code = 54 mg/dL 10-26 H 3094-0) Creatinine (test 2.16 mg/dL 0.50-1.20 H code = 2160-0) Glucose (test code = 177 mg/dL 70-110 H 2345-7) Calcium (test code = 8.9 mg/dL 8.5-10.5 43065-5) EGFR (test code = 33 mL/min/1.73 [place] [address]-9) m NOT ACCURATE CREATININE CLEARANCE IN PREDICTING GLOMERULAR FILTRATION RATE . ESTIMATED GFR I S NOT APPLICABLE FOR DIALYSIS PATIENTS. ISSA (test code = Cake Icer ID - ISSA) JBERNOperator ID - JBERNOperator ID - JBERNOperator ID - JBERNOperator ID - JBERNOperator ID - JBERNOperator ID - JBERNOperator ID - JBERNOperator ID - JBERNOperator ID - JBERN Lab Interpretation Abnormal (test code = 05228-4) [facility] Metabolic [id number] 06:00:00 Test Item Value Reference Range Interpretation Comments Sodium (test code = 138 meq/L 676-281 8103-2) Potassium (test code 4.3 meq/L 3.6-5.5 = 2823-3) Chloride (test code 101 meq/L 98-106 = 2075-0) CO2 (test code = 31 meq/L 20-29 H 2027-9) BUN (test code = 54 mg/dL 10-26 H 3094-0) Creatinine (test 2.16 mg/dL 0.50-1.20 H code = 2160-0) Glucose (test code = 177 mg/dL 70-110 H 2345-7) Calcium (test code = 8.9 mg/dL 8.5-10.5 75529-1) EGFR (test code = 33 mL/min/1.73 [place] [address]-0) m NOT ACCURATE CREATININE CLEARANCE IN PREDICTING GLOMERULAR FILTRATION RATE . ESTIMATED GFR I S NOT APPLICABLE FOR DIALYSIS PATIENTS. ISSA (test code = Cake Icer ID - ISSA) JBERNOperator ID - JBERNOperator ID - JBERNOperator ID - JBERNOperator ID - JBERNOperator ID - JBERNOperator ID - JBERNOperator ID - JBERNOperator ID - JBERNOperator ID - JBERN Lab Interpretation Abnormal (test code = 79056-4) [facility] Metabolic [id number] 06:00:00 Test Item Value Reference Range Interpretation Comments Sodium (test code = 138 meq/L 824-660 0120-2) Potassium (test code 4.3 meq/L 3.6-5.5 = 2823-3) Chloride (test code 101 meq/L 98-106 = 2075-0) CO2 (test code = 31 meq/L 20-29 H 2028-9) BUN (test code = 54 mg/dL 10-26 H 3094-0) Creatinine (test 2.16 mg/dL 0.50-1.20 H code = 2160-0) Glucose (test code = 177 mg/dL 70-110 H 2345-7) Calcium (test code = 8.9 mg/dL 8.5-10.5 10629-9) EGFR (test code = 33 mL/min/1.73 [place] [address]-8) m NOT ACCURATE CREATININE CLEARANCE IN PREDICTING GLOMERULAR FILTRATION RATE . ESTIMATED GFR I S NOT APPLICABLE FOR DIALYSIS PATIENTS. ISSA (test code = Cake Icer ID - ISSA) JBERNOperator ID - JBERNOperator ID - JBERNOperator ID - JBERNOperator ID - JBERNOperator ID - JBERNOperator ID - JBERNOperator ID - JBERNOperator ID - JBERNOperator ID - JBERN Lab Interpretation Abnormal (test code = 30382-0) [facility] METABOLIC [id number] 06:00:00 Test Item Value Reference Range Interpretation [...] S NOT APPLICABLE FOR DIALYSIS PATIEN TS. Cake Icer ID - JBERNOperator ID - JBERNOperator ID - JBERNOperator ID - JBERNOperator ID - JBERNOperator ID - JBERNOperator ID - JBERNOperator ID - JBERNOperator ID - JBERNOperator ID - [id number] 05:42:00 Test Item Value Reference Range Interpretation Comments Magnesium (test code = 2.2 mg/dL 1.5-3 43675-5) ISSA (test code = ISSA) Cake Icer ID - JBERNOperator ID - JBERNOperator ID - JBERNOperator ID - JBERN Lab Interpretation Normal (test code = 36051-9) [facility]2021-07-04 05:42:00 Test Item Value Reference Range Interpretation Comments Magnesium (test code = 2.2 mg/dL 1.5-3 09314-9) ISSA (test code = ISSA) Cake Icer ID - JBERNOperator ID - JBERNOperator ID - JBERNOperator ID - JBERN Lab Interpretation Normal (test code = 06462-4) [facility] Test Item Value Reference Range Interpretation Comments Magnesium (test code = 2.2 mg/dL 1.5-3 51885-1) ISSA (test code = ISSA) Cake Icer ID - JBERNOperator ID - JBERNOperator ID - JBERNOperator ID - JBERN Lab Interpretation Normal (test code = 73638-3) [facility]2021-07-04 05:42:00 Test Item Value Reference Range Interpretation Comments Magnesium (test code = 2.2 mg/dL 1.5-3 85055-3) ISSA (test code = ISSA) Cake Icer ID - JBERNOperator ID - JBERNOperator ID - JBERNOperator ID - JBERN Lab Interpretation Normal (test code = 40671-0) [facility]2021-07-04 05:42:00 Test Item Value Reference Range Interpretation Comments Magnesium (test code = 2.2 mg/dL 1.5-3.0 08299-2) ISSA (test code = ISSA) Cake Icer ID - JBERNOperator ID - JBERNOperator ID - JBERNOperator ID - JBERN Lab Interpretation Normal (test code = 18752-3) [facility]2021-07-04 05:42:00 Test Item Value Reference Range Interpretation Comments Magnesium (test code = 2.2 mg/dL 1.5-3.0 88452-1) ISSA (test code = ISSA) Cake Icer ID - JBERNOperator ID - JBERNOperator ID - JBERNOperator ID - JBERN Lab Interpretation Normal (test code = 43128-3) [facility]2021-07-04 05:42:00 Test Item Value Reference Range Interpretation Comments Magnesium (test code = 2.2 mg/dL 1.5-3.0 46317-7) ISSA (test code = ISSA) Cake Icer ID - JBERNOperator ID - JBERNOperator ID - JBERNOperator ID - JBERN Lab Interpretation Normal (test code = 35022-7) [facility]2021-07-04 05:42:00 Test Item Value Reference Range Interpretation Comments MAGNESIUM (BEAKER) (test code = 2.2 mg/dL 1.5-3.0 627) Cake Icer ID - JBERNOperator ID - JBERNOperator ID - JBERNOperator ID - JBERNCBC with platelet count + automated [id number] 05:17:00 Test Item Value Reference Range Interpretation Comments WBC (test code = 6690-2) 7.6 See_Comment [A utomated message] The system [employer] generated this result transmitted ref erence range: 4.0 - 10 .0 K/L. The refe rence range was not u sed to interpret this result as normal/abnor mal. RBC (test code = 789-8) 3.54 See_Comment L [Au tomated message] The system [employer] generated this result transmitted ref erence range: 4.20 - 5 .80 M/L. The refe rence range was not u sed to interpret this result as normal/abnor mal. MCHC (test code = 786-4) 31.0 See_Comment L [A utomated message] The system [employer] generated this result transmitted ref erence range: [...] See_Comment [Aut omated message] 777-3) The system [employer] generated this result transmitted ref erence range: 150 - 43 0 K/CU MM. The referen ce range was not u sed to interpret this result as normal/abnor mal. MPV (test code = 11.1 fL 6-11.5 48469-0) nRBC (test code = 413) 0 See_Comment [Aut omated message] The system [employer] generated this result transmitted ref erence range: [...] See_Comment [Aut omated message] 670) The system [employer] generated this result transmitted ref erence range: 1.80 - 8 .00 K/L. The refe rence range was not u sed to interpret this result as normal/abnor mal. # Lymphs (test code = 0.97 See_Comment L [Auto mated message] 414) The system [employer] generated this result transmitted ref erence range: 1.48 - 4 .50 K/L. The refe rence range was not u sed to interpret this result as normal/abnor mal. # Monos (test code = 0.74 See_Comment [Autom ated message] 415) The system [employer] generated this result transmitted ref erence range: 0.00 - 1 .30 K/L. The refe rence range was not u sed to interpret this result as normal/abnor mal. # Eos (test code = 416) 0.21 See_Comment [Au tomated message] The system [employer] generated this result transmitted ref erence range: 0.00 - 0 .50 K/L. The refe rence range was not u sed to interpret this result as normal/abnor mal. # Baso (test code = 417) 0.05 See_Comment [A utomated message] The system [employer] generated this result transmitted ref erence range: 0.00 - 0 .20 K/L. The refe rence range was not u sed to interpret this result as normal/abnor mal. Immature 1 % 0-0 H Granulocytes-Relative (test code = 2801) Lab Interpretation (test Abnormal code = 23839-1) [facility] with platelet count + automated [id number] 05:17:00 Test Item Value Reference Range Interpretation Comments WBC (test code = 6690-2) 7.6 See_Comment [A utomated message] The system [employer] generated this result transmitted ref erence range: 4.0 - 10 .0 K/L. The refe rence range was not u sed to interpret this result as normal/abnor mal. RBC (test code = 789-8) 3.54 See_Comment L [Au tomated message] The system [employer] generated this result transmitted ref erence range: 4.20 - 5 .80 M/L. The refe rence range was not u sed to interpret this result as normal/abnor mal. MCHC (test code = 786-4) 31.0 See_Comment L [A utomated message] The system [employer] generated this result transmitted ref erence range: [...] See_Comment [Aut omated message] 777-3) The system [employer] generated this result transmitted ref erence range: 150 - 43 0 K/CU MM. The referen ce range was not u sed to interpret this result as normal/abnor mal. MPV (test code = 11.1 fL 6-11.5 60783-7) nRBC (test code = 413) 0 See_Comment [Aut omated message] The system [employer] generated this result transmitted ref erence range: [...] See_Comment [Aut omated message] 670) The system [employer] generated this result transmitted ref erence range: 1.80 - 8 .00 K/L. The refe rence range was not u sed to interpret this result as normal/abnor mal. # Lymphs (test code = 0.97 See_Comment L [Auto mated message] 414) The system [employer] generated this result transmitted ref erence range: 1.48 - 4 .50 K/L. The refe rence range was not u sed to interpret this result as normal/abnor mal. # Monos (test code = 0.74 See_Comment [Autom ated message] 415) The system [employer] generated this result transmitted ref erence range: 0.00 - 1 .30 K/L. The refe rence range was not u sed to interpret this result as normal/abnor mal. # Eos (test code = 416) 0.21 See_Comment [Au tomated message] The system [employer] generated this result transmitted ref erence range: 0.00 - 0 .50 K/L. The refe rence range was not u sed to interpret this result as normal/abnor mal. # Baso (test code = 417) 0.05 See_Comment [A utomated message] The system [employer] generated this result transmitted ref erence range: 0.00 - 0 .20 K/L. The refe rence range was not u sed to interpret this result as normal/abnor mal. Immature 1 % 0-0 H Granulocytes-Relative (test code = 2801) Lab Interpretation (test Abnormal code = 53556-0) [facility] with platelet count + automated [id number] 05:17:00 Test Item Value Reference Range Interpretation Comments WBC (test code = 6690-2) 7.6 See_Comment [A utomated message] The system [employer] generated this result transmitted ref erence range: 4.0 - 10 .0 K/L. The refe rence range was not u sed to interpret this result as normal/abnor mal. RBC (test code = 789-8) 3.54 See_Comment L [Au tomated message] The system [employer] generated this result transmitted ref erence range: 4.20 - 5 .80 M/L. The refe rence range was not u sed to interpret this result as normal/abnor mal. MCHC (test code = 786-4) 31.0 See_Comment L [A utomated message] The system [employer] generated this result transmitted ref erence range: [...] See_Comment [Aut omated message] 777-3) The system [employer] generated this result transmitted ref erence range: 150 - 43 0 K/CU MM. The referen ce range was not u sed to interpret this result as normal/abnor mal. MPV (test code = 11.1 fL 6-11.5 03260-1) nRBC (test code = 413) 0 See_Comment [Aut omated message] The system [employer] generated this result transmitted ref erence range: [...] See_Comment [Aut omated message] 670) The system [employer] generated this result transmitted ref erence range: 1.80 - 8 .00 K/L. The refe rence range was not u sed to interpret this result as normal/abnor mal. # Lymphs (test code = 0.97 See_Comment L [Auto mated message] 414) The system [employer] generated this result transmitted ref erence range: 1.48 - 4 .50 K/L. The refe rence range was not u sed to interpret this result as normal/abnor mal. # Monos (test code = 0.74 See_Comment [Autom ated message] 415) The system [employer] generated this result transmitted ref erence range: 0.00 - 1 .30 K/L. The refe rence range was not u sed to interpret this result as normal/abnor mal. # Eos (test code = 416) 0.21 See_Comment [Au tomated message] The system [employer] generated this result transmitted ref erence range: 0.00 - 0 .50 K/L. The refe rence range was not u sed to interpret this result as normal/abnor mal. # Baso (test code = 417) 0.05 See_Comment [A utomated message] The system [employer] generated this result transmitted ref erence range: 0.00 - 0 .20 K/L. The refe rence range was not u sed to interpret this result as normal/abnor mal. Immature 1 % 0-0 H Granulocytes-Relative (test code = 2801) Lab Interpretation (test Abnormal code = 65231-7) [facility] with platelet count + automated [id number] 05:17:00 Test Item Value Reference Range Interpretation Comments WBC (test code = 6690-2) 7.6 See_Comment [A utomated message] The system [employer] generated this result transmitted ref erence range: 4.0 - 10 .0 K/L. The refe rence range was not u sed to interpret this result as normal/abnor mal. RBC (test code = 789-8) 3.54 See_Comment L [Au tomated message] The system [employer] generated this result transmitted ref erence range: 4.20 - 5 .80 M/L. The refe rence range was not u sed to interpret this result as normal/abnor mal. MCHC (test code = 786-4) 31.0 See_Comment L [A utomated message] The system [employer] generated this result transmitted ref erence range: [...] See_Comment [Aut omated message] 777-3) The system [employer] generated this result transmitted ref erence range: 150 - 43 0 K/CU MM. The referen ce range was not u sed to interpret this result as normal/abnor mal. MPV (test code = 11.1 fL 6-11.5 39518-1) nRBC (test code = 413) 0 See_Comment [Aut omated message] The system [employer] generated this result transmitted ref erence range: [...] See_Comment [Aut omated message] 670) The system [employer] generated this result transmitted ref erence range: 1.80 - 8 .00 K/L. The refe rence range was not u sed to interpret this result as normal/abnor mal. # Lymphs (test code = 0.97 See_Comment L [Auto mated message] 414) The system [employer] generated this result transmitted ref erence range: 1.48 - 4 .50 K/L. The refe rence range was not u sed to interpret this result as normal/abnor mal. # Monos (test code = 0.74 See_Comment [Autom ated message] 415) The system [employer] generated this result transmitted ref erence range: 0.00 - 1 .30 K/L. The refe rence range was not u sed to interpret this result as normal/abnor mal. # Eos (test code = 416) 0.21 See_Comment [Au tomated message] The system [employer] generated this result transmitted ref erence range: 0.00 - 0 .50 K/L. The refe rence range was not u sed to interpret this result as normal/abnor mal. # Baso (test code = 417) 0.05 See_Comment [A utomated message] The system [employer] generated this result transmitted ref erence range: 0.00 - 0 .20 K/L. The refe rence range was not u sed to interpret this result as normal/abnor mal. Immature 1 % 0-0 H Granulocytes-Relative (test code = 2801) Lab Interpretation (test Abnormal code = 00410-6) [facility] with platelet count + automated [id number] 05:17:00 Test Item Value Reference Range Interpretation Comments WBC (test code = 6690-2) 7.6 See_Comment [A utomated message] The system [employer] generated this result transmitted ref erence range: 4.0 - 10 .0 K/L. The refe rence range was not u sed to interpret this result as normal/abnor mal. RBC (test code = 789-8) 3.54 See_Comment L [Au tomated message] The system [employer] generated this result transmitted ref erence range: 4.20 - 5 .80 M/L. The refe rence range was not u sed to interpret this result as normal/abnor mal. MCHC (test code = 786-4) 31.0 See_Comment L [A utomated message] The system [employer] generated this result transmitted ref erence range: [...] See_Comment [Aut omated message] 777-3) The system [employer] generated this result transmitted ref erence range: 150 - 43 0 K/CU MM. The referen ce range was not u sed to interpret this result as normal/abnor mal. MPV (test code = 11.1 fL 6.0-11.5 46139-5) nRBC (test code = 413) 0 See_Comment [Aut omated message] The system [employer] generated this result transmitted ref erence range: [...] See_Comment [Aut omated message] 670) The system [employer] generated this result transmitted ref erence range: 1.80 - 8 .00 K/L. The refe rence range was not u sed to interpret this result as normal/abnor mal. # Lymphs (test code = 0.97 See_Comment L [Auto mated message] 414) The system [employer] generated this result transmitted ref erence range: 1.48 - 4 .50 K/L. The refe rence range was not u sed to interpret this result as normal/abnor mal. # Monos (test code = 0.74 See_Comment [Autom ated message] 415) The system [employer] generated this result transmitted ref erence range: 0.00 - 1 .30 K/L. The refe rence range was not u sed to interpret this result as normal/abnor mal. # Eos (test code = 416) 0.21 See_Comment [Au tomated message] The system [employer] generated this result transmitted ref erence range: 0.00 - 0 .50 K/L. The refe rence range was not u sed to interpret this result as normal/abnor mal. # Baso (test code = 417) 0.05 See_Comment [A utomated message] The system [employer] generated this result transmitted ref erence range: 0.00 - 0 .20 K/L. The refe rence range was not u sed to interpret this result as normal/abnor mal. Immature 1 % 0-0 H Granulocytes-Relative (test code = 2801) Lab Interpretation (test Abnormal code = 74164-0) [facility] with platelet count + automated [id number] 05:17:00 Test Item Value Reference Range Interpretation Comments WBC (test code = 6690-2) 7.6 See_Comment [A utomated message] The system [employer] generated this result transmitted ref erence range: 4.0 - 10 .0 K/L. The refe rence range was not u sed to interpret this result as normal/abnor mal. RBC (test code = 789-8) 3.54 See_Comment L [Au tomated message] The system [employer] generated this result transmitted ref erence range: 4.20 - 5 .80 M/L. The refe rence range was not u sed to interpret this result as normal/abnor mal. MCHC (test code = 786-4) 31.0 See_Comment L [A utomated message] The system [employer] generated this result transmitted ref erence range: [...] See_Comment [Aut omated message] 777-3) The system [employer] generated this result transmitted ref erence range: 150 - 43 0 K/CU MM. The referen ce range was not u sed to interpret this result as normal/abnor mal. MPV (test code = 11.1 fL 6.0-11.5 01577-0) nRBC (test code = 413) 0 See_Comment [Aut omated message] The system [employer] generated this result transmitted ref erence range: [...] See_Comment [Aut omated message] 670) The system [employer] generated this result transmitted ref erence range: 1.80 - 8 .00 K/L. The refe rence range was not u sed to interpret this result as normal/abnor mal. # Lymphs (test code = 0.97 See_Comment L [Auto mated message] 414) The system [employer] generated this result transmitted ref erence range: 1.48 - 4 .50 K/L. The refe rence range was not u sed to interpret this result as normal/abnor mal. # Monos (test code = 0.74 See_Comment [Autom ated message] 415) The system [employer] generated this result transmitted ref erence range: 0.00 - 1 .30 K/L. The refe rence range was not u sed to interpret this result as normal/abnor mal. # Eos (test code = 416) 0.21 See_Comment [Au tomated message] The system [employer] generated this result transmitted ref erence range: 0.00 - 0 .50 K/L. The refe rence range was not u sed to interpret this result as normal/abnor mal. # Baso (test code = 417) 0.05 See_Comment [A utomated message] The system [employer] generated this result transmitted ref erence range: 0.00 - 0 .20 K/L. The refe rence range was not u sed to interpret this result as normal/abnor mal. Immature 1 % 0-0 H Granulocytes-Relative (test code = 2801) Lab Interpretation (test Abnormal code = 37440-0) [facility] with platelet count + automated [id number] 05:17:00 Test Item Value Reference Range Interpretation Comments WBC (test code = 6690-2) 7.6 See_Comment [A utomated message] The system [employer] generated this result transmitted ref erence range: 4.0 - 10 .0 K/L. The refe rence range was not u sed to interpret this result as normal/abnor mal. RBC (test code = 789-8) 3.54 See_Comment L [Au tomated message] The system [employer] generated this result transmitted ref erence range: 4.20 - 5 .80 M/L. The refe rence range was not u sed to interpret this result as normal/abnor mal. MCHC (test code = 786-4) 31.0 See_Comment L [A utomated message] The system [employer] generated this result transmitted ref erence range: [...] See_Comment [Aut omated message] 777-3) The system [employer] generated this result transmitted ref erence range: 150 - 43 0 K/CU MM. The referen ce range was not u sed to interpret this result as normal/abnor mal. MPV (test code = 11.1 fL 6.0-11.5 67059-5) nRBC (test code = 413) 0 See_Comment [Aut omated message] The system [employer] generated this result transmitted ref erence range: [...] See_Comment [Aut omated message] 670) The system [employer] generated this result transmitted ref erence range: 1.80 - 8 .00 K/L. The refe rence range was not u sed to interpret this result as normal/abnor mal. # Lymphs (test code = 0.97 See_Comment L [Auto mated message] 414) The system [employer] generated this result transmitted ref erence range: 1.48 - 4 .50 K/L. The refe rence range was not u sed to interpret this result as normal/abnor mal. # Monos (test code = 0.74 See_Comment [Autom ated message] 415) The system [employer] generated this result transmitted ref erence range: 0.00 - 1 .30 K/L. The refe rence range was not u sed to interpret this result as normal/abnor mal. # Eos (test code = 416) 0.21 See_Comment [Au tomated message] The system [employer] generated this result transmitted ref erence range: 0.00 - 0 .50 K/L. The refe rence range was not u sed to interpret this result as normal/abnor mal. # Baso (test code = 417) 0.05 See_Comment [A utomated message] The system [employer] generated this result transmitted ref erence range: 0.00 - 0 .20 K/L. The refe rence range was not u sed to interpret this result as normal/abnor mal. Immature 1 % 0-0 H Granulocytes-Relative (test code = 2801) Lab Interpretation (test Abnormal code = 81571-3) [facility] W/PLT COUNT & AUTO [id number] 05:17:00 Test Item Value Reference Range Interpretation [...] PERCENT (BEAKER) (test code = 2801) POCT-GLUCOSE [id number] 13:00:00 Test Item Value Reference Range Interpretation Comments POC-GLUCOSE METER 114 mg/dL 70-110 H : Notified RN/MD: TESTED (BEAKER) (test code AT [address] = 1538) [facility] [address]: Cake Icer/Techni cornelia ID = [id number] for Cony Osborne ANAEROBIC [id number] 09:52:00 Test Item Value Reference Range Interpretation Comments CULTURE (BEAKER) (test No anaerobes isolated code = 1095) Anaerobic [id number] 09:51:00 Test Item Value Reference Range Interpretation Comments Result (test code = No anaerobes isolated 6463-4) [facility] [id number] 09:51:00 Test Item Value Reference Range Interpretation Comments Result (test code = No anaerobes isolated 6463-4) [facility] [id number] 09:51:00 Test Item Value Reference Range Interpretation Comments Result (test code = No anaerobes isolated 6463-4) [facility] [id number] 09:51:00 Test Item Value Reference Range Interpretation Comments Result (test code = No anaerobes isolated 6463-4) [facility] [id number] 09:51:00 Test Item Value Reference Range Interpretation Comments Result (test code = No anaerobes isolated 6463-4) [facility] [id number] 09:51:00 Test Item Value Reference Range Interpretation Comments Result (test code = No anaerobes isolated 6463-4) [facility] [id number] 09:51:00 Test Item Value Reference Range Interpretation Comments Result (test code = No anaerobes isolated 6463-4) [facility] [id number] 09:51:00 Test Item Value Reference Range Interpretation Comments CULTURE (BEAKER) (test No anaerobes isolated code = 1095) BASIC METABOLIC [id number] 06:34:00 Test Item Value Reference Range Interpretation [...] S NOT APPLICABLE FOR DIALYSIS PATIEN TS. Cake Icer ID - [id number] ID - [id number] ID - [id number] ID - [id number] ID - [id number] ID - [id number] ID - [id number] ID - [id number] ID - [id number] ID - [id number]- GLUCOSE [id number] 06:13:00 Test Item Value Reference Range Interpretation Comments POC-GLUCOSE METER 95 mg/dL 70-110 : TESTED A T [address] (BEAKER) (test code = [address], 1538) [facility] [address]: Cake Icer/Techni cornelia ID = [id number] for Agustina Harrison [id number] 05:36:00 Test Item Value Reference Range Interpretation Comments MAGNESIUM (BEAKER) (test code = 1.9 mg/dL 1.5-3.0 627) Cake Icer ID - [id number] ID - [id number] ID - [id number] ID - [id number] W/PLT COUNT & AUTO [id number] 05:21:00 Test Item Value Reference Range Interpretation [...] PERCENT (BEAKER) (test code = 2801) POCT-GLUCOSE [id number] 21:10:00 Test Item Value Reference Range Interpretation Comments POC-GLUCOSE METER 137 mg/dL 70-110 H : TESTED A T [address] (BEAKER) (test code [facility], = 1538) [place] [address]: Cake Icer/Techni cornelia ID = [id number] for Agustina Harrison POCT-GLUCOSE [id number] 19:19:00 Test Item Value Reference Range Interpretation Comments POC-GLUCOSE METER 119 mg/dL 70-110 H : TESTED A T [address] (BEAKER) ([facility] = 1538) [place] [address]: Cake Icer/Techni cornelia ID = [id number] for Adrienne r, Heidy POCT-GLUCOSE [id number] 12:43:00 Test Item Value Reference Range Interpretation Comments POC-GLUCOSE METER 126 mg/dL 70-110 H : TESTED A T [address] (BEAKER) (test [facility] [address], = 1538) [place] [address]: Cake Icer/Techni cornelia ID = [id number] for Adrienne r, Heidy POCT-GLUCOSE [id number] 06:47:00 Test Item Value Reference Range Interpretation Comments POC-GLUCOSE METER 132 mg/dL 70-110 H : TESTED A T [address] (BEAKER) (test code [address], = 1538) [facility] [place] [address]: Cake Icer/Techni cornelia ID = [id number] for Zackary Bustamante si BASIC METABOLIC [id number] 04:59:00 Test Item Value Reference Range Interpretation [...] S NOT APPLICABLE FOR DIALYSIS PATIEN TS. Cake Icer ID - [id number] ID - [id number] ID - voam78Omlydfsn ID - vijy39Phnsqjpv ID - cnsj43Vedkuois ID - [id number] ID - guya20Qnprkpaf ID - hyvs30Nijrukmw ID - hlal17Gweicjly ID - [id number] 04:44:00 Test Item Value Reference Range Interpretation Comments MAGNESIUM (BEAKER) (test code = 2.0 mg/dL 1.5-3.0 627) Cake Icer ID - [id number] ID - [id number] ID - [id number] ID - [id number] CBC W/PLT COUNT & AUTO [id number] 04:30:00 Test Item Value Reference Range Interpretation [...] PERCENT (BEAKER) (test code = 2801) POCT-GLUCOSE [id number] 23:23:00 Test Item Value Reference Range Interpretation Comments POC-GLUCOSE METER 156 mg/dL 70-110 H : TESTED A T [address] (BEAKER) (test code [address], = 1538) [place] [address]: Cake Icer/Techni cornelia ID = [id number] for Zackary Bustamante si POCT-GLUCOSE [id number] 18:35:00 Test Item Value Reference Range Interpretation Comments POC-GLUCOSE METER 137 mg/dL 70-110 H : TESTED A T [address] (BEAKER) (test code [address], = 1538) [place] [address]: Cake Icer/Techni cornelia ID = [id number] for Adrienne r Heidy POCT-GLUCOSE [id number] 13:42:00 Test Item Value Reference Range Interpretation Comments POC-GLUCOSE METER 109 mg/dL 70-110 : TESTED A T [address] (BEAKER) (test code [address], = 1538) [place] [address]: Cake Icer/Techni cornelia ID = [id number] for Adrienne r, Hediy RAD, FOOT, MIN 3 VIEWS, [id number] 09:06:00Reason for exam:->s/p 5th metatarsal head [facility] 1975 Sex: [...] Gleason Verified Date/Time: 09/26/2020 09:06:00 Reading Location: [facility] Radiology Reading Room XR foot 3 views [id number] 09:06:00 Interface, External Ris In - 09/26/2020 [...] Gleason Verified Date/Time: 09/26/2020 09:06:00 Reading Location: [facility] [id number] 09:06:00Interface, External Ris In - 09/26/2020 9:08 [...] Gleason Verified Date/Time: 09/26/2020 09:06:00 Reading Location: [facility] [id number] 09:06:00Interface, External Ris In - 09/26/2020 9:08 [...] Gleason Verified Date/Time: 09/26/2020 09:06:00 Reading Location: [facility] [id number] 09:06:00[facility], External Ris In - 09/26/2020 9:08 AM [...] Gleason Verified Date/Time: 09/26/2020 09:06:00 Reading Location: [facility] Radiology [facility] [id number] 08:47:00 Test Item Value Reference Range Interpretation Comments POC-GLUCOSE METER 134 mg/dL 70-110 H : Notified RN/MD: TESTED (BEAKER) (test code AT [facility] [address] = 1538) [facility] [address]: Cake Icer/Techni cornelia ID = [id number] for Marzena Ponce BASIC METABOLIC [id number] 06:13:00 Test Item Value Reference Range Interpretation [...] S NOT APPLICABLE FOR DIALYSIS PATIEN TS. Cake Icer ID - [id number] ID - [id number] ID - [id number] ID - [id number] ID - [id number] ID - vrym26Bmqauskl ID - tvvq45Qfoctyqt ID - oiso98Dvcpgoxv ID - zvqp43Cirwzgbb ID - [id number] 06:08:00 Test Item Value Reference Range Interpretation Comments MAGNESIUM (BEAKER) (test code = 2.2 mg/dL 1.5-3.0 627) Cake Icer ID - [id number] ID - [id number] ID - [id number] ID - [id number] B-type Natriuretic Factor (BNP)2020-09-26 06:01:00 Test Item Value Reference Range Interpretation Comments BNP (test code = 20212-9) 929 pg/mL 0-100 H ISSA (test code = ISSA) Cake Icer ID - [id number] Lab Interpretation (test Abnormal code = 81503-9) [facility]26 06:01:00 Test Item Value Reference Range Interpretation Comments BNP (test code = 72373-1) 929 pg/mL 0-100 H ISSA (test code = ISSA) Cake Icer ID - [id number] Lab Interpretation (test Abnormal code = 06754-1) [facility] ([facility]2020-09-26 06:01:00 Test Item Value Reference Range Interpretation Comments BNP (test code = 16441-3) 929 pg/mL 0-100 H ISSA (test code = ISSA) Cake Icer ID - [id number] Lab Interpretation (test Abnormal code = 60668-4) [facility] ([facility]NP)2020-09-26 06:01:00 Test Item Value Reference Range Interpretation Comments BNP (test code = 25712-9) 929 pg/mL 0-100 H ISSA (test code = ISSA) Cake Icer ID - [id number] Lab Interpretation (test Abnormal code = 19724-3) [facility] (BNP)2020-09-26 06:01:00 Test Item Value Reference Range Interpretation Comments BNP (test code = 48774-1) 929 pg/mL 0-100 H ISSA (test code = ISSA) Cake Icer ID - [id number] Lab Interpretation (test Abnormal code = 02405-4) [facility] (BNP)2020-09-26 06:01:00 Test Item Value Reference Range Interpretation Comments BNP (test code = 79775-5) 929 pg/mL 0-100 H ISSA (test code = ISSA) Cake Icer ID - [id number] Lab Interpretation (test Abnormal code = 92405-5) [facility] Nat[facility] (BNP)2020-09-26 06:01:00 Test Item Value Reference Range Interpretation Comments BNP (test code = 02922-6) 929 pg/mL 0-100 H ISSA (test code = ISSA) Cake Icer ID - [id number] Lab Interpretation (test Abnormal code = 43628-7) [facility] NATRIURET[facility] FACTOR (BNP)2020-09-26 06:01:00 Test Item Value Reference Range Interpretation Comments B-TYPE NATRIURETIC PEPTIDE (BEAKER) 929 pg/mL 0-100 H (test code = 700) Cake Icer ID - [id number] W/PLT COUNT & AUTO [id number] 05:44:00 Test Item Value Reference Range Interpretation [...] PERCENT (BEAKER) (test code = 2801) POCT-GLUCOSE [id number] 21:22:00 Test Item Value Reference Range Interpretation Comments POC-GLUCOSE METER 162 mg/dL 70-110 H : TESTED A T [address] (BEAKER) (test code [address] [facility] [address], = 1538) [place] [address]: Cake Icer/Techni cornelia ID = [id number] for Agustina Harrison POCT-GLUCOSE [id number] 16:27:00 Test Item Value Reference Range Interpretation Comments POC-GLUCOSE METER 151 mg/dL 70-110 H : TESTED A T [address] (BEAKER) (test code [address] [facility] [address], = 1538) [place] [address]: Cake Icer/Techni cornelia ID = [id number] for Judy suha, Ayinor POCT-GLUCOSE [id number] 11:32:00 Test Item Value Reference Range Interpretation Comments POC-GLUCOSE METER 104 mg/dL 70-110 : TESTED A T [address] (BEAKER) (test code [facility] [address], = 1538) [place] [address]: Cake Icer/Techni cornelia ID = [id number] for Judy suha, Ayinor POCT-GLUCOSE [id number] 06:17:00 Test Item Value Reference Range Interpretation Comments POC-GLUCOSE METER 112 mg/dL 70-110 H : TESTED A T [address] (BEAKER) (test code [facility] = 1538) [place] [address]: Cake Icer/Techni cornelia ID = [id number] for Lani Kat [id number] 05:39:00 Test Item Value Reference Range Interpretation Comments MAGNESIUM (BEAKER) (test code = 1.9 mg/dL 1.5-3.0 627) Cake Icer ID - LITOOperator ID - LITOOperator ID - LITOOperator ID - LITOBASIC METABOLIC [id number] 05:38:00 Test Item Value Reference Range Interpretation [...] S NOT APPLICABLE FOR DIALYSIS PATIEN TS. Cake Icer ID - LITOOperator ID - LITOOperator ID - LITOOperator ID - LITOOperator ID - LITOOperator ID - LITOOperator ID - LITOOperator ID - LITOOperator ID - LITOOperator ID - LITOCBC W/PLT COUNT & AUTO [id number] 05:20:00 Test Item Value Reference Range Interpretation [...] PERCENT (BEAKER) (test code = 2801) POCT-GLUCOSE [id number] 20:48:00 Test Item Value Reference Range Interpretation Comments POC-GLUCOSE METER 167 mg/dL 70-110 H : TESTED A T [address] (BEAKER) (test code [address], = 1538) [place] [address]: Cake Icer/Techni cornelia ID = [id number] for JimboLani olson POCT-GLUCOSE [id number] 17:48:00 Test Item Value Reference Range Interpretation Comments POC-GLUCOSE METER 260 mg/dL 70-110 H : TESTED A T [address] (BEAKER) (test code [address], = 1538) [place] [address]: Cake Icer/Techni cornelia ID = [id number] for Heidy Martin ARTERIAL DOPPLER LEGS, [id number] 13:42:00Reason for exam:- >osteomyelitis left foot [facility]ENTER[facility] FRANDY FORD : 1975 Sex: MFINAL [...] MDReport Verified Date/Time: 09/24/2020 13:42:37 Reading Location: [facility] Radiology Reading Room Arterial Doppler Legs Ukdynwxpc6398-04-88 13:42:00Interface, External Ris In - 09/24/2020 1:44 [...] Ortiz Verified Date/Time: 09/24/2020 13:42:37 Reading Location: [facility] Nfzrjfvcs9746-14-84 13:42:00Interface, External Ris In - 09/24/2020 1:44 [...] Ortiz Verified Date/Time: 09/24/2020 13:42:37 Reading Location: [facility] Radiology [facility] Lrdohmrpc4201-57-03 13:42:00Interface, External Ris In - 09/24/2020 1:44 [...] Ortiz Verified Date/Time: 09/24/2020 13:42:37 Reading Location: [facility] Radiology [facility] Leg[facility] Ggvokdjic3154-73-83 13:42:00Interface, External Ris In - 09/24/2020 1:44 [...] Ortiz Verified Date/Time: 09/24/2020 13:42:37 Reading Location: [facility] Radiology Reading Room [facility] Hollywood[facility] N[facility], random [id number] 10:42:00 Test Item Value Reference Range Interpretation Comments Urea Nitrogen, Ur 236 mg/dL (test code = 3095-7) ISSA (test code = Reference Range: No ISSA) NormalsOperator ID [facility] random [id number] 10:42:00 Test Item Value Reference Range Interpretation Comments Urea Nitrogen, Ur 236 mg/dL (test code = 3095-7) ISSA (test code = Reference Range: No ISSA) NormalsOperator ID - [facility] CenterU[facility]itrogen, random [id number] 10:42:00 Test Item Value Reference Range Interpretation Comments Urea Nitrogen, Ur 236 mg/dL (test code = 3095-7) ISSA (test code = Reference Range: No ISSA) NormalsOperator ID - [facility] Center[facility]itrogen, random [id number] 10:42:00 Test Item Value Reference Range Interpretation Comments Urea Nitrogen, Ur 236 mg/dL (test code = 3095-7) ISSA (test code = Reference Range: No ISSA) NormalsOperator ID [facility], random [id number] 10:42:00 Test Item Value Reference Range Interpretation Comments Urea Nitrogen, Ur 236 mg/dL (test code = 3095-7) ISSA (test code = Reference Range: No ISSA) NormalsOperator ID - [facility] Center[facility] Nitrogen, random [id number] 10:42:00 Test Item Value Reference Range Interpretation Comments Urea Nitrogen, Ur 236 mg/dL (test code = 3095-7) ISSA (test code = Reference Range: No ISSA) NormalsOperator ID - [facility] Center[facility] Nitrogen, random [id number] 10:42:00 Test Item Value Reference Range Interpretation Comments Urea Nitrogen, Ur 236 mg/dL (test code = 3095-7) ISSA (test code = Reference Range: No ISSA) NormalsOperator ID - [facility] CenterUREA NITROGEN, RANDOM [id number] 10:42:00 Test Item Value Reference Range Interpretation Comments UREA NITROGEN URINE (BEAKER) (test 236 mg/dL code = 538) Reference Range: No NormalsOperator [facility] CVitamin D, 65-Nrmaqmd8439-69-29 10:38:00 Test Item Value Reference Range Interpretation Comments Vitamin D 25-Hydroxy 7.3 ng/mL 6.6-49.9 (test code = 2764) ISSA (test code = ISSA) Effective 01/06/2017: Reference Range ChangeNew: 6.6-49.9 ng/mL Previous: 13.0-47.8 ng/mL Recommended Vitamin D Target Range: 30.0-40.0 ng/mLOperator ID - ORION C Lab Interpretation (test Normal code = 93098-7) [facility], 56-Zpsckuh4619-02-29 10:38:00 Test Item Value Reference Range Interpretation Comments Vitamin D 25-Hydroxy 7.3 ng/mL 6.6-49.9 (test code = 2764) ISSA (test code = ISSA) Effective 01/06/2017: Reference Range ChangeNew: 6.6-49.9 ng/mL Previous: 13.0-47.8 ng/mL Recommended Vitamin D Target Range: 30.0-40.0 ng/mLOperator ID - ORION C Lab Interpretation (test Normal code = 15755-1) [facility], 27-Pwspdmq6480-31-29 10:38:00 Test Item Value Reference Range Interpretation Comments Vitamin D 25-Hydroxy 7.3 ng/mL 6.6-49.9 (test code = 2764) ISSA (test code = ISSA) Effective 01/06/2017: Reference Range ChangeNew: 6.6-49.9 ng/mL Previous: 13.0-47.8 ng/mL Recommended Vitamin D Target Range: 30.0-40.0 ng/mLOperator ID - ORION C Lab Interpretation (test Normal code = 26666-6) [facility], 32-Cvbxuoz3505-48-29 10:38:00 Test Item Value Reference Range Interpretation Comments Vitamin D 25-Hydroxy 7.3 ng/mL 6.6-49.9 (test code = 2764) ISSA (test code = ISSA) Effective 01/06/2017: Reference Range ChangeNew: 6.6-49.9 ng/mL Previous: 13.0-47.8 ng/mL Recommended Vitamin D Target Range: 30.0-40.0 ng/mLOperator ID - ORION C Lab Interpretation (test Normal code = 13593-1) [facility], 54-Gheuyil2625-82-29 10:38:00 Test Item Value Reference Range Interpretation Comments Vitamin D 25-Hydroxy 7.3 ng/mL 6.6-49.9 (test code = 2764) ISSA (test code = ISSA) Effective 01/06/2017: Reference Range ChangeNew: 6.6-49.9 ng/mL Previous: 13.0-47.8 ng/mL Recommended Vitamin D Target Range: 30.0-40.0 ng/mLOperator ID - ORION C Lab Interpretation (test Normal code = 20684-4) [facility], 94-Zrhobvp1772-11-29 10:38:00 Test Item Value Reference Range Interpretation Comments Vitamin D 25-Hydroxy 7.3 ng/mL 6.6-49.9 (test code = 2764) ISSA (test code = ISSA) Effective 01/06/2017: Reference Range ChangeNew: 6.6-49.9 ng/mL Previous: 13.0-47.8 ng/mL Recommended Vitamin D Target Range: 30.0-40.0 ng/mLOperator ID - ORION C Lab Interpretation (test Normal code = 55241-9) [facility], 89-Jfehgda5075-39-29 10:38:00 Test Item Value Reference Range Interpretation Comments Vitamin D 25-Hydroxy 7.3 ng/mL 6.6-49.9 (test code = 2764) ISSA (test code = ISSA) Effective 01/06/2017: Reference Range ChangeNew: 6.6-49.9 ng/mL Previous: 13.0-47.8 ng/mL Recommended Vitamin D Target Range: 30.0-40.0 ng/mLOperator ID - ORION C Lab Interpretation (test Normal code = 43232-5) [facility]IT[facility], 15-[id number] 10:38:00 Test Item Value Reference Range Interpretation Comments VITAMIN D 25-OH (BEAKER) (test code 7.3 ng/mL 6.6-49.9 = 2764) Effective 01/06/2017: Reference Range ChangeNew: 6.6-49.9 ng/mL Previous: 13.0-47.8 ng/mLRecommended Vitamin D Target Range: 30.0-40.0 ng/mLOperator ID - ORION CPTH, [id number] 07:31:00 Test Item Value Reference Range Interpretation Comments PTH (test code = 2731-8) 271.6 pg/mL 15-90 H ISSA (test code = ISSA) Cake Icer ID - [id number] Lab Interpretation (test Abnormal code = 28114-9) [facility], [id number] 07:31:00 Test Item Value Reference Range Interpretation Comments PTH (test code = 2731-8) 271.6 pg/mL 15-90 H ISSA (test code = ISSA) Cake Icer ID - [id number] Lab Interpretation (test Abnormal code = 22225-4) [facility], [id number] 07:31:00 Test Item Value Reference Range Interpretation Comments PTH (test code = 2731-8) 271.6 pg/mL 15-90 H ISSA (test code = ISSA) Cake Icer ID - [id number] Lab Interpretation (test Abnormal code = 99067-2) [facility], [id number] 07:31:00 Test Item Value Reference Range Interpretation Comments PTH (test code = 2731-8) 271.6 pg/mL 15-90 H ISSA (test code = ISSA) Cake Icer ID - [id number] Lab Interpretation (test Abnormal code = 76986-5) [facility], [id number] 07:31:00 Test Item Value Reference Range Interpretation Comments PTH (test code = 2731-8) 271.6 pg/mL 15.0-90.0 H ISSA (test code = ISSA) Cake Icer ID - [id number] Lab Interpretation (test Abnormal code = 20020-0) [facility], cfngwt3431-34-58 07:31:00 Test Item Value Reference Range Interpretation Comments PTH (test code = 2731-8) 271.6 pg/mL 15.0-90.0 H ISSA (test code = ISSA) Cake Icer ID - [id number] Lab Interpretation (test Abnormal code = 68962-8) [facility], [id number] 07:31:00 Test Item Value Reference Range Interpretation Comments PTH (test code = 2731-8) 271.6 pg/mL 15.0-90.0 H ISSA (test code = ISSA) Cake Icer ID - [id number] Lab Interpretation (test Abnormal code = 27508-3) [facility], [id number] 07:31:00 Test Item Value Reference Range Interpretation Comments PARATHYROID HORMONE INTACT 271.6 pg/mL 15.0-90.0 H (BEAKER) (test code = 577) Cake Icer ID - vdwa12MRVF-BCRVALN [id number] 06:45:00 Test Item Value Reference Range Interpretation Comments POC-GLUCOSE METER 122 mg/dL 70-110 H : Notified RN/MD: TESTED (BEAKER) (test code AT [facility] [address] = 1538) [facility] [address]: Cake Icer/Techni cornelia ID = [id number] for Coco Griffin Iron, TIBC, % sat. (without ferritin)2020-09-24 06:41:00 Test Item Value Reference Range Interpretation Comments Iron (test code = 43.0 ug/dL 45-170 L 2498-4) TIBC (test code = 189 ug/dL 250-550 L 2500-7) Iron % Saturation (test 23 % 20-55 code = 2502-3) ISSA (test code = ISSA) Cake Icer ID - LITOOperator ID - ARCHIE Lab Interpretation (test Abnormal code = 15655-8) [facility], [facility]BC, % sat. (without ferritin)2020-09-24 06:41:00 Test Item Value Reference Range Interpretation Comments Iron (test code = 43.0 ug/dL 45-170 L 2498-4) TIBC (test code = 189 ug/dL 250-550 L 2500-7) Iron % Saturation (test 23 % 20-55 code = 2502-3) ISSA (test code = ISSA) Cake Icer ID - LITOOperator ID - ARCHIE Lab Interpretation (test Abnormal code = 37791-2) [facility] % [facility]. (without ferritin)2020-09-24 06:41:00 Test Item Value Reference Range Interpretation Comments Iron (test code = 43.0 ug/dL 45-170 L 2498-4) TIBC (test code = 189 ug/dL 250-550 L 2500-7) Iron % Saturation (test 23 % 20-55 code = 2502-3) ISSA (test code = ISSA) Cake Icer ID - LITOOperator ID - ARCHIE Lab Interpretation (test Abnormal code = 65868-0) [facility], TIBC, % sat. (without ferritin)2020-09-24 06:41:00 Test Item Value Reference Range Interpretation Comments Iron (test code = 43.0 ug/dL 45-170 L 2498-4) TIBC (test code = 189 ug/dL 250-550 L 2500-7) Iron % Saturation (test 23 % 20-55 code = 2502-3) ISSA (test code = ISSA) Cake Icer ID - LITOOperator ID - ARCHIE Lab Interpretation (test Abnormal code = 35257-2) [facility], TIBC, % sat. (without ferritin)2020-09-24 06:41:00 Test Item Value Reference Range Interpretation Comments Iron (test code = 43.0 ug/dL 45.0-170.0 L 2498-4) TIBC (test code = 189 ug/dL 250-550 L 2500-7) Iron % Saturation (test 23 % 20-55 code = 2502-3) ISSA (test code = ISSA) Cake Icer ID - LITOOperator ID - ARCHIE Lab Interpretation (test Abnormal code = 62836-4) [facility], TIBC, % sat. (without ferritin)2020-09-24 06:41:00 Test Item Value Reference Range Interpretation Comments Iron (test code = 43.0 ug/dL 45.0-170.0 L 2498-4) TIBC (test code = 189 ug/dL 250-550 L 2500-7) Iron % Saturation (test 23 % 20-55 code = 2502-3) ISSA (test code = ISSA) Cake Icer ID - LITOOperator ID - ARCHIE Lab Interpretation (test Abnormal code = 95005-1) [facility], TIBC, % sat. (without ferritin)2020-09-24 06:41:00 Test Item Value Reference Range Interpretation Comments Iron (test code = 43.0 ug/dL 45.0-170.0 L 2498-4) TIBC (test code = 189 ug/dL 250-550 L 2500-7) Iron % Saturation (test 23 % 20-55 code = 2502-3) ISSA (test code = ISSA) Cake Icer ID - LITOOperator ID - ARCHIE Lab Interpretation (test Abnormal code = 68105-7) [facility], % SAT. (WITHOUT FERRITIN)2020-09-24 06:41:00 Test Item Value Reference Range Interpretation Comments IRON (BEAKER) (test code = 547) 43.0 ug/dL 45.0-170.0 L TOTAL IRON BINDING CAPACITY 189 ug/dL 250-550 L (BEAKER) (test code = 769) IRON % SATURATION (2) (BEAKER) 23 % 20-55 (test code = 2590) Cake Icer ID - LITOOperator ID - [id number] 06:23:00 Test Item Value Reference Range Interpretation Comments Ferritin (test code = 190.40 ng/mL 22-322 2276-4) ISSA (test code = ISSA) Cake Icer ID - ARCHIE Lab Interpretation (test Normal code = 10774-7) [facility]:00 Test Item Value Reference Range Interpretation Comments Ferritin (test code = 190.40 ng/mL 22-322 2276-4) ISSA (test code = ISSA) Cake Icer ID - ARCHIE Lab Interpretation (test Normal code = 06778-8) [facility] 06[facility]23:00 Test Item Value Reference Range Interpretation Comments Ferritin (test code = 190.40 ng/mL 22-322 2276-4) ISSA (test code = ISSA) Cake Icer ID - ARCHIE Lab Interpretation (test Normal code = 35485-3) [facility] 06:23:00 Test Item Value Reference Range Interpretation Comments Ferritin (test code = 190.40 ng/mL 22-322 2276-4) ISSA (test code = ISSA) Cake Icer ID - ARCHIE Lab Interpretation (test Normal code = 36430-7) [facility] 06:[facility]00 Test Item Value Reference Range Interpretation Comments Ferritin (test code = 190.40 ng/mL 22.00-322.00 2276-4) ISSA (test code = ISSA) Cake Icer ID - ARCHIE Lab Interpretation (test Normal code = 44453-3) [facility] 06:[facility]00 Test Item Value Reference Range Interpretation Comments Ferritin (test code = 190.40 ng/mL 22.00-322.00 2276-4) ISSA (test code = ISSA) Cake Icer ID - ARCHIE Lab Interpretation (test Normal code = 34575-4) [facility] 06:23:00 Test Item Value Reference Range Interpretation Comments Ferritin (test code = 190.40 ng/mL 22.00-322.00 2276-4) ISSA (test code = ISSA) Cake Icer ID - ACRHIE Lab Interpretation (test Normal code = 88364-8) [facility] 06:23:00 Test Item Value Reference Range Interpretation Comments FERRITIN (BEAKER) (test code = 190.40 ng/mL 22.00-322.00 361) Cake Icer ID - LITOBASIC METABOLIC [id number] 06:18:00 Test Item Value Reference Range Interpretation [...] S NOT APPLICABLE FOR DIALYSIS PATIEN TS. Cake Icer ID - LITOOperator ID - LITOOperator ID - LITOOperator ID - LITOOperator ID - LITOOperator ID - LITOOperator ID - LITOOperator ID - LITOOperator ID - LITOOperator ID - [id number] 06:04:00 Test Item Value Reference Range Interpretation Comments MAGNESIUM (BEAKER) (test code = 1.6 mg/dL 1.5-3.0 627) Cake Icer ID - LITOOperator ID - LITOOperator ID - LITOOperator ID - LITOCBC W/PLT COUNT & AUTO [id number] 06:03:00 Test Item Value Reference Range Interpretation [...] PERCENT (BEAKER) (test code = 2801) POCT-GLUCOSE [id number] 21:37:00 Test Item Value Reference Range Interpretation Comments POC-GLUCOSE METER 185 mg/dL 70-110 H : TESTED A T [address] (BEAKER) (test code [address], = 1538) [facility] 77 478: Cake Icer/Techni cornelia ID = [id number] for Rachel Branham U/S, RENAL, [id number] 21:19:00Reason for exam:->[facility] 1975 Sex: MFINAL REPORT [...] Moose Petersen Verified Date/Time: 121:19:36 US renal [id number] 21:19:00Interface, External Ris In - 09/23/2020 9:21 [...] Signed: Teo Petersen Verified Date/Time: 09/23/2020 21:19:36 [facility] 2020-[facility]-23 21:19:00Interface, External Ris In [...] Signed: Moose Peterseneport Verified Date/Time: 09/23/2020 21:19:36 [facility] [id number] 21:19:00Interface, External Ris In - 09/23/2020 9:21 [...] Signed: Moose Petersenort Verified Date/Time: 09/23/2020 21:19:36 [facility] [id number] 21:19:00Interface, External Ris In - 09/23/2020 9:21 [...] Moose Petersen MDReport Verified Date/Time: 09/23/2020 21:19:36 [facility] Protein, random [id number] 19:02:00 Test Item Value Reference Range Interpretation Comments Protein, Urine (test code 212 mg/dL 0-14 H = 2888-6) ISSA (test code = ISSA) Cake Icer ID - [id number] ID - [id number] Lab Interpretation (test Abnormal code = 92338-1) [facility] [id number] 19:02:00 Test Item Value Reference Range Interpretation Comments Protein, Urine (test code 212 mg/dL 0-14 H = 2888-6) ISSA (test code = ISSA) Cake Icer ID - [id number] ID - [id number] Lab Interpretation (test Abnormal code = 10849-4) [facility]Protein, random [id number] 19:02:00 Test Item Value Reference Range Interpretation Comments Protein, Urine (test code 212 mg/dL 0-14 H = 2888-6) ISSA (test code = ISSA) Cake Icer ID - [id number] ID - [id number] Lab Interpretation (test Abnormal code = 52138-3) [facility]Protein, random [id number] 19:02:00 Test Item Value Reference Range Interpretation Comments Protein, Urine (test code 212 mg/dL 0-14 H = 2888-6) ISSA (test code = ISSA) Cake Icer ID - [id number] ID - [id number] Lab Interpretation (test Abnormal code = 55502-4) [facility] [id number] 19:02:00 Test Item Value Reference Range Interpretation Comments Protein, Urine (test code 212 mg/dL 0-14 H = 2888-6) ISSA (test code = ISSA) Cake Icer ID - [id number] ID - [id number] Lab Interpretation (test Abnormal code = 33322-7) [facility]Protein, random [id number] 19:02:00 Test Item Value Reference Range Interpretation Comments Protein, Urine (test code 212 mg/dL 0-14 H = 2888-6) ISSA (test code = ISSA) Cake Icer ID - [id number] ID - [id number] Lab Interpretation (test Abnormal code = 32058-4) [facility]Protein[facility] [id number] 19:02:00 Test Item Value Reference Range Interpretation Comments Protein, Urine (test code 212 mg/dL 0-14 H = 2888-6) ISSA (test code = ISSA) Cake Icer ID - [id number] ID - [id number] Lab Interpretation (test Abnormal code = 07287-9) [facility]PROTEIN, RANDOM [id number] 19:02:00 Test Item Value Reference Range Interpretation Comments PROTEIN, URINE (BEAKER) (test code 212 mg/dL 0-14 H = 1569) Cake Icer ID - [id number] ID - [id number], random [id number] 18:49:00 Test Item Value Reference Range Interpretation Comments Creatinine, Ur 23.8 mg/dL (test code = 2161-8) ISSA (test code = Reference Range: No ISSA) NormalsOperator ID - [id number] [facility]Creatinine, random [id number] 18:49:00 Test Item Value Reference Range Interpretation Comments Creatinine, Ur 23.8 mg/dL (test code = 2161-8) ISSA (test code = Reference Range: No ISSA) NormalsOperator ID - [id number] [facility]ine, random [id number] 18:49:00 Test Item Value Reference Range Interpretation Comments Creatinine, Ur 23.8 mg/dL (test code = 2161-8) ISSA (test code = Reference Range: No ISSA) NormalsOperator ID - [id number] [facility]ine, random [id number] 18:49:00 Test Item Value Reference Range Interpretation Comments Creatinine, Ur 23.8 mg/dL (test code = 2161-8) ISSA (test code = Reference Range: No ISSA) NormalsOperator ID [facility] [id number] [facility] [id number] 18:49:00 Test Item Value Reference Range Interpretation Comments Creatinine, Ur 23.8 mg/dL (test code = 2161-8) ISSA (test code = Reference Range: No ISSA) NormalsOperator ID - [id number] [facility]Creatinine, random [id number] 18:49:00 Test Item Value Reference Range Interpretation Comments Creatinine, Ur 23.8 mg/dL (test code = 2161-8) ISSA (test code = Reference Range: No ISSA) NormalsOperator ID - [id number] [facility]ine, random [id number] 18:49:00 Test Item Value Reference Range Interpretation Comments Creatinine, Ur 23.8 mg/dL (test code = 2161-8) ISSA (test code = Reference Range: No ISSA) NormalsOperator ID - [id number] [facility]CR[facility]INE, RANDOM [id number] 18:49:00 Test Item Value Reference Range Interpretation Comments CREATININE URINE (BEAKER) (test 23.8 mg/dL code = 375) Reference Range: No NormalsOperator ID - [id number], random urine 2020-09-23 18:43:00 Test Item Value Reference Range Interpretation Comments ChlorideUr (test 117 meq/L code = 50840-4) ISSA (test code = Reference Range: No ISSA) NormalsOperator ID - [id number] [facility]Potassium, random [id number] 18:43:00 Test Item Value Reference Range Interpretation Comments Potassium Urine 21.5 meq/L (test code = 2828-2) ISSA (test code = Reference Range: No ISSA) NormalsOperator ID - [id number] [facility] [id number] 18:43:00 Test Item Value Reference Range Interpretation Comments Sodium Urine (test 113 meq/L code = 2955-3) SISA (test code = Reference Range: No ISSA) NormalsOperator ID - [id number] [facility] HospitalChloride, random [id number] 18:43:00 Test Item Value Reference Range Interpretation Comments ChlorideUr (test 117 meq/L code = 02063-4) ISSA (test code = Reference Range: No ISSA) NormalsOperator ID - [id number] [facility]Potassium, random [id number] 18:43:00 Test Item Value Reference Range Interpretation Comments Potassium Urine 21.5 meq/L (test code = 2828-2) ISSA (test code = Reference Range: No ISSA) NormalsOperator ID - [id number] [facility], random [id number] 18:43:00 Test Item Value Reference Range Interpretation Comments Sodium Urine (test 113 meq/L code = 2955-3) ISSA (test code = Reference Range: No ISSA) NormalsOperator ID - [id number] [facility]Chloride, random [id number] 18:43:00 Test Item Value Reference Range Interpretation Comments ChlorideUr (test 117 meq/L code = 63780-0) ISSA (test code = Reference Range: No ISSA) NormalsOperator ID - [id number] [facility]Potassium, random [id number] 18:43:00 Test Item Value Reference Range Interpretation Comments Potassium Urine 21.5 meq/L (test code = 2828-2) ISSA (test code = Reference Range: No ISSA) NormalsOperator ID - [id number] [facility], random [id number] 18:43:00 Test Item Value Reference Range Interpretation Comments Sodium Urine (test 113 meq/L code = 2955-3) ISSA (test code = Reference Range: No ISSA) NormalsOperator ID - [id number] [facility]Chloride, random [id number] 18:43:00 Test Item Value Reference Range Interpretation Comments ChlorideUr (test 117 meq/L code = 92729-7) ISSA (test code = Reference Range: No ISSA) NormalsOperator ID - [id number] [facility]Potassium, random [id number] 18:43:00 Test Item Value Reference Range Interpretation Comments Potassium Urine 21.5 meq/L (test code = 2828-2) ISSA (test code = Reference Range: No ISSA) NormalsOperator ID - [id number] [facility], [facility] [id number] 18:43:00 Test Item Value Reference Range Interpretation Comments Sodium Urine (test 113 meq/L code = 2955-3) ISSA (test code = Reference Range: No ISSA) NormalsOperator ID - [id number] [facility]Chloride, random [id number] 18:43:00 Test Item Value Reference Range Interpretation Comments ChlorideUr (test 117 meq/L code = 49851-2) ISSA (test code = Reference Range: No ISSA) NormalsOperator ID - [id number] [facility]Potassium, random [id number] 18:43:00 Test Item Value Reference Range Interpretation Comments Potassium Urine 21.5 meq/L (test code = 2828-2) ISSA (test code = Reference Range: No ISSA) NormalsOperator ID - [id number] [facility], random [id number] 18:43:00 Test Item Value Reference Range Interpretation Comments Sodium Urine (test 113 meq/L code = 2955-3) ISSA (test code = Reference Range: No ISSA) NormalsOperator ID - [id number] [facility]Ch[facility], random [id number] 18:43:00 Test Item Value Reference Range Interpretation Comments ChlorideUr (test 117 meq/L code = 33038-2) ISSA (test code = Reference Range: No ISSA) NormalsOperator ID - [id number] [facility]Potassium, random [id number] 18:43:00 Test Item Value Reference Range Interpretation Comments Potassium Urine 21.5 meq/L (test code = 2828-2) ISSA (test code = Reference Range: No ISSA) NormalsOperator ID - [id number] [facility], [facility] [id number] 18:43:00 Test Item Value Reference Range Interpretation Comments Sodium Urine (test 113 meq/L code = 2955-3) ISSA (test code = Reference Range: No ISSA) NormalsOperator ID - [id number] [facility]Chlor[facility], random [id number] 18:43:00 Test Item Value Reference Range Interpretation Comments ChlorideUr (test 117 meq/L code = 67662-3) ISSA (test code = Reference Range: No ISSA) NormalsOperator ID - [id number] [facility]Potassium, random [id number] 18:43:00 Test Item Value Reference Range Interpretation Comments Potassium Urine 21.5 meq/L (test code = 2828-2) ISAS (test code = Reference Range: No ISSA) NormalsOperator ID - [id number] [facility], [facility] [id number] 18:43:00 Test Item Value Reference Range Interpretation Comments Sodium Urine (test 113 meq/L code = 2955-3) ISSA (test code = Reference Range: No ISSA) NormalsOperator ID - [id number] [facility] HospitalCHLORIDE, RANDOM [id number] 18:43:00 Test Item Value Reference Range Interpretation Comments CHLORIDE URINE (BEAKER) (test code 117 meq/L = 682) Reference Range: No NormalsOperator ID - [id number], RANDOM URINE 2020-09-23 18:43:00 Test Item Value Reference Range Interpretation Comments POTASSIUM URINE (BEAKER) (test 21.5 meq/L code = 195) Reference Range: No NormalsOperator ID - [id number], RANDOM [id number] 18:43:00 Test Item Value Reference Range Interpretation Comments SODIUM URINE (BEAKER) (test code = 113 meq/L 243) Reference Range: No NormalsOperator ID - [id number] w/Microscopic + Reflex to [id number] 17:44:00 Test Item Value Reference Range Interpretation Comments Color, UA (test code = Yellow 5778-6) Clarity, UA (test code = Clear 5767-9) Specific Rougon, UA 1.020 1.001-1.035 (test code = 5811-5) pH, UA (test code = 7.0 5.0-8.0 5803-2) Protein, UA (test code = 100 mg/dL Negative A 28102-8) Glucose, UA (test code = 100 mg/dL Negative A 365) Ketones, UA (test code = Negative Negative 2514-8) Bilirubin, UA (test code Negative Negative = 89294-6) Blood, UA (test code = Trace Negative A 28815-9) Nitrite, UA (test code = Negative Negative 5802-4) Leukocytes, UA (test Negative Negative code = 5799-2) Urobilinogen, UA (test 0.2 mg/dL 0.2-1 code = 79263-2) Bacteria, UA (test code None Seen = 91365-6) RBC, UA (test code = <5 See_Comment [Autom ated message] 799-7) The system [employer] generated this result transmit josé luis reference range : /HPF. The refer ence range was not u sed to interpret th is result as normal/abnormal . WBC, UA (test code = None Seen See_Comment [Autom ated message] 57662-2) The system [employer] generated this result transmit josé luis reference range : /HPF. The refer ence range was not u sed to interpret th is result as normal/abnormal . SQUAMOUS EPITHELIAL <5 See_Comment [Automa josé luis message] (test code = 31915-9) The sy stem which generated this result transmit josé luis reference range : /HPF. The refer ence range was not u sed to interpret th is result as normal/abnormal . Specimen Source (test code = 2795) Lab Interpretation (test Abnormal code = 26830-5) [facility]/Microscopic + Reflex to Culture 2020-09-23 17:44:00 Test Item Value Reference Range Interpretation Comments Color, UA (test code = Yellow 5778-6) Clarity, UA (test code = Clear 5767-9) Specific Rougon, UA 1.020 1.001-1.035 (test code = 5811-5) pH, UA (test code = 7.0 5.0-8.0 5803-2) Protein, UA (test code = 100 mg/dL Negative A 50149-2) Glucose, UA (test code = 100 mg/dL Negative A 365) Ketones, UA (test code = Negative Negative 2514-8) Bilirubin, UA (test code Negative Negative = 90349-0) Blood, UA (test code = Trace Negative A 33791-1) Nitrite, UA (test code = Negative Negative 5802-4) Leukocytes, UA (test Negative Negative code = 5799-2) Urobilinogen, UA (test 0.2 mg/dL 0.2-1 code = 32549-3) Bacteria, UA (test code None Seen = 06591-3) RBC, UA (test code = <5 See_Comment [Autom ated message] 799-7) The system [employer] generated this result transmit josé luis reference range : /HPF. The refer ence range was not u sed to interpret th is result as normal/abnormal . WBC, UA (test code = None Seen See_Comment [Autom ated message] 64781-6) The system [employer] generated this result transmit josé luis reference range : /HPF. The refer ence range was not u sed to interpret th is result as normal/abnormal . SQUAMOUS EPITHELIAL <5 See_Comment [Automa josé luis message] (test code = 91276-5) The sy stem which generated this result transmit josé luis reference range : /HPF. The refer ence range was not u sed to interpret th is result as normal/abnormal . Specimen Source (test code = 2795) Lab Interpretation (test Abnormal code = 64952-1) [facility]/Micro[facility]opic + Reflex to Culture 2020-09-23 17:44:00 Test Item Value Reference Range Interpretation Comments Color, UA (test code = Yellow 5778-6) Clarity, UA (test code = Clear 5767-9) Specific Rougon, UA 1.020 1.001-1.035 (test code = 5811-5) pH, UA (test code = 7.0 5.0-8.0 5803-2) Protein, UA (test code = 100 mg/dL Negative A 74898-0) Glucose, UA (test code = 100 mg/dL Negative A 365) Ketones, UA (test code = Negative Negative 2514-8) Bilirubin, UA (test code Negative Negative = 47929-7) Blood, UA (test code = Trace Negative A 37087-8) Nitrite, UA (test code = Negative Negative 5802-4) Leukocytes, UA (test Negative Negative code = 5799-2) Urobilinogen, UA (test 0.2 mg/dL 0.2-1 code = 23140-1) Bacteria, UA (test code None Seen = 24049-0) RBC, UA (test code = <5 See_Comment [Autom ated message] 799-7) The system [employer] generated this result transmit josé luis reference range : /HPF. The refer ence range was not u sed to interpret th is result as normal/abnormal . WBC, UA (test code = None Seen See_Comment [Autom ated message] 17307-4) The system [employer] generated this result transmit josé luis reference range : /HPF. The refer ence range was not u sed to interpret th is result as normal/abnormal . SQUAMOUS EPITHELIAL <5 See_Comment [Automa josé luis message] (test code = 14221-1) The sy stem which generated this result transmit josé luis reference range : /HPF. The refer ence range was not u sed to interpret th is result as normal/abnormal . Specimen Source (test code = 2795) Lab Interpretation (test Abnormal code = 99394-8) [facility]opic + Reflex to Culture 2020-09-23 17:44:00 Test Item Value Reference Range Interpretation Comments Color, UA (test code = Yellow 5778-6) Clarity, UA (test code = Clear 5767-9) Specific Rougon, UA 1.020 1.001-1.035 (test code = 5811-5) pH, UA (test code = 7.0 5.0-8.0 5803-2) Protein, UA (test code = 100 mg/dL Negative A 84136-8) Glucose, UA (test code = 100 mg/dL Negative A 365) Ketones, UA (test code = Negative Negative 2514-8) Bilirubin, UA (test code Negative Negative = 03431-6) Blood, UA (test code = Trace Negative A 21524-8) Nitrite, UA (test code = Negative Negative 5802-4) Leukocytes, UA (test Negative Negative code = 5799-2) Urobilinogen, UA (test 0.2 mg/dL 0.2-1 code = 89379-0) Bacteria, UA (test code None Seen = 55174-6) RBC, UA (test code = <5 See_Comment [Autom ated message] 799-7) The system [employer] generated this result transmit josé luis reference range : /HPF. The refer ence range was not u sed to interpret th is result as normal/abnormal . WBC, UA (test code = None Seen See_Comment [Autom ated message] 27326-8) The system [employer] generated this result transmit josé luis reference range : /HPF. The refer ence range was not u sed to interpret th is result as normal/abnormal . SQUAMOUS EPITHELIAL <5 See_Comment [Automa josé luis message] (test code = 55066-4) The sy stem which generated this result transmit josé luis reference range : /HPF. The refer ence range was not u sed to interpret th is result as normal/abnormal . Specimen Source (test code = 2795) Lab Interpretation (test Abnormal code = 06964-4) [facility]opic + Reflex to Culture 2020-09-23 17:44:00 Test Item Value Reference Range Interpretation Comments Color, UA (test code = Yellow 5778-6) Clarity, UA (test code = Clear 5767-9) Specific Rougon, UA 1.020 1.001-1.035 (test code = 5811-5) pH, UA (test code = 7.0 5.0-8.0 5803-2) Protein, UA (test code = 100 mg/dL Negative A 55087-9) Glucose, UA (test code = 100 mg/dL Negative A 365) Ketones, UA (test code = Negative Negative 2514-8) Bilirubin, UA (test code Negative Negative = 06930-5) Blood, UA (test code = Trace Negative A 35736-1) Nitrite, UA (test code = Negative Negative 5802-4) Leukocytes, UA (test Negative Negative code = 5799-2) Urobilinogen, UA (test 0.2 mg/dL 0.2-1.0 code = 60783-9) Bacteria, UA (test code None Seen = 84748-5) RBC, UA (test code = <5 See_Comment [Autom ated message] 799-7) The system [employer] generated this result transmit josé luis reference range : /HPF. The refer ence range was not u sed to interpret th is result as normal/abnormal . WBC, UA (test code = None Seen See_Comment [Autom ated message] 93766-0) The system [employer] generated this result transmit josé luis reference range : /HPF. The refer ence range was not u sed to interpret th is result as normal/abnormal . SQUAMOUS EPITHELIAL <5 See_Comment [Automa josé luis message] (test code = 10734-4) The sy stem which generated this result transmit josé luis reference range : /HPF. The refer ence range was not u sed to interpret th is result as normal/abnormal . Specimen Source (test code = 2795) Lab Interpretation (test Abnormal code = 07622-2) [facility]opic + Reflex to Culture 2020-09-23 17:44:00 Test Item Value Reference Range Interpretation Comments Color, UA (test code = Yellow 5778-6) Clarity, UA (test code = Clear 5767-9) Specific Rougon, UA 1.020 1.001-1.035 (test code = 5811-5) pH, UA (test code = 7.0 5.0-8.0 5803-2) Protein, UA (test code = 100 mg/dL Negative A 90482-8) Glucose, UA (test code = 100 mg/dL Negative A 365) Ketones, UA (test code = Negative Negative 2514-8) Bilirubin, UA (test code Negative Negative = 22653-4) Blood, UA (test code = Trace Negative A 36060-4) Nitrite, UA (test code = Negative Negative 5802-4) Leukocytes, UA (test Negative Negative code = 5799-2) Urobilinogen, UA (test 0.2 mg/dL 0.2-1.0 code = 42126-4) Bacteria, UA (test code None Seen = 18637-0) RBC, UA (test code = <5 See_Comment [Autom ated message] 799-7) The system [employer] generated this result transmit josé luis reference range : /HPF. The refer ence range was not u sed to interpret th is result as normal/abnormal . WBC, UA (test code = None Seen See_Comment [Autom ated message] 79205-0) The system [employer] generated this result transmit josé luis reference range : /HPF. The refer ence range was not u sed to interpret th is result as normal/abnormal . SQUAMOUS EPITHELIAL <5 See_Comment [Automa josé luis message] (test code = 91667-9) The sy stem which generated this result transmit josé luis reference range : /HPF. The refer ence range was not u sed to interpret th is result as normal/abnormal . Specimen Source (test code = 2795) Lab Interpretation (test Abnormal code = 31510-3) [facility] w/Microscopic + Reflex to Culture 2020-09-23 17:44:00 Test Item Value Reference Range Interpretation Comments Color, UA (test code = Yellow 5778-6) Clarity, UA (test code = Clear 5767-9) Specific Rougon, UA 1.020 1.001-1.035 (test code = 5811-5) pH, UA (test code = 7.0 5.0-8.0 5803-2) Protein, UA (test code = 100 mg/dL Negative A 54524-3) Glucose, UA (test code = 100 mg/dL Negative A 365) Ketones, UA (test code = Negative Negative 2514-8) Bilirubin, UA (test code Negative Negative = 58805-2) Blood, UA (test code = Trace Negative A 39095-8) Nitrite, UA (test code = Negative Negative 5802-4) Leukocytes, UA (test Negative Negative code = 5799-2) Urobilinogen, UA (test 0.2 mg/dL 0.2-1.0 code = 68244-4) Bacteria, UA (test code None Seen = 44636-6) RBC, UA (test code = <5 See_Comment [Autom ated message] 799-7) The system [employer] generated this result transmit josé luis reference range : /HPF. The refer ence range was not u sed to interpret th is result as normal/abnormal . WBC, UA (test code = None Seen See_Comment [Autom ated message] 15058-0) The system whic h generated this result transmit josé luis reference range : /HPF. The refer ence range was not u sed to interpret th is result as normal/abnormal . SQUAMOUS EPITHELIAL <5 See_Comment [Automa josé luis message] (test code = 78427-4) The sy stem which generated this result transmit josé luis reference range : /HPF. The refer ence range was not u sed to interpret th is result as normal/abnormal . Specimen Source (test code = 2795) Lab Interpretation (test Abnormal code = 39559-5) [facility] UR[facility] [id number] 17:44:00 Test Item Value Reference Range Interpretation [...] 1663) SOURCE(BEAKER) (test code = 2795) POCT-GLUCOSE [id number] 16:33:00 Test Item Value Reference Range Interpretation Comments POC-GLUCOSE METER 232 mg/dL 70-110 H : TESTED A T [facility] 1317 (CECILIO) (test code [address], = 1538) [facility] 77 478: Cake Icer/Techni cornelia ID = [id number] for Mily Coy 2D Echo W/Doppler(CW/PW/Color)2020-09-23 14:27:41Ejection FractionSLEH ECHO HEARTLAB MKCKESSON CPACSInterface, External Ris In - 09/23/2020 2:27 PM C DTTransthoracic Echocardiography Report (TTE) Demographics Patient Name FRANDY FORD Date of Study 09/23/2020 MERRITT Gender Male Visit Number [id number] Race Room Number 428 Number Date of 1975 Referring Physician Age 44 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 Procedure Type [...] Peak Gradient: 2.05 mmHg Estimated PASP: 47.75 [facility]2D [facility] W/Doppler(CW/PW/Color)2020-09-23 14:27:41[facility]SLE [facility] W/Doppler(CW/PW/Color)2020-09-23 14:27:41Ejection FractionSLE ECHO [facility]2D Echo W/Doppler(CW/PW/Color) 2020-09-23 14:27:41Ejection [facility]ractionSLE [facility]CHO [facility] [id number] 11:54:00 Test Item Value Reference Range Interpretation Comments POC-GLUCOSE METER 133 mg/dL 70-110 H : [facility] T [facility] (BEAKER) (test code [address], = 1538) [facility] 77 478: Cake Icer/Techni cornelia ID = [id number] for Luisa howard, Mily RAD, FOOT, MIN 3 VIEWS, [id number] 08:48:00Reason for exam:->foot wound [facility] 1975 Sex: MFINAL REPORT [...] LacyMDReport Verified Date/Time: 09/23/2020 08:48:33 Reading Location: [facility] Radiology Reading Room POCT-GLUCOSE METER 2020-09-23 08:11:00 Test Item Value Reference Range Interpretation Comments POC-GLUCOSE METER 91 mg/dL 70-110 : TESTED A T [facility] [address] (BEAKER) (test code = [address], 1538) [facility] 77 478: Cake Icer/Techni cornelia ID = [id number] for Mily Coy Htgpymhvzm1460-44-79 08:04:00 Test Item Value Reference Range Interpretation Comments Phosphorus (test code = 3.5 mg/dL 2.5-4.5 2777-1) ISSA (test code = ISSA) Cake Icer ID - [id number] Lab Interpretation (test Normal code = 50263-8) [facility] 08:04:00 Test Item Value Reference Range Interpretation Comments Phosphorus (test code = 3.5 mg/dL 2.5-4.5 2777-1) ISSA (test code = ISSA) Cake Icer ID - [id number] Lab Interpretation (test Normal code = 12839-6) [facility] 08:04:00 Test Item Value Reference Range Interpretation Comments Phosphorus (test code = 3.5 mg/dL 2.5-4.5 2777-1) ISSA (test code = ISSA) Cake Icer ID - [id number] Lab Interpretation (test Normal code = 31444-0) [facility] 08:04:00 Test Item Value Reference Range Interpretation Comments Phosphorus (test code = 3.5 mg/dL 2.5-4.5 2777-1) ISSA (test code = ISSA) Cake Icer ID - [id number] Lab Interpretation (test Normal code = 30713-5) [facility] 08:04:00 Test Item Value Reference Range Interpretation Comments Phosphorus (test code = 3.5 mg/dL 2.5-4.5 2777-1) ISSA (test code = ISSA) Cake Icer ID - [id number] Lab Interpretation (test Normal code = 58947-7) [facility] 08:04:00 Test Item Value Reference Range Interpretation Comments Phosphorus (test code = 3.5 mg/dL 2.5-4.5 2777-1) ISSA (test code = ISSA) Cake Icer ID - [id number] Lab Interpretation (test Normal code = 82646-3) [facility]21-[facility] 08:04:00 Test Item Value Reference Range Interpretation Comments Phosphorus (test code = 3.5 mg/dL 2.5-4.5 2777-1) ISSA (test code = ISSA) Cake Icer ID - [id number] Lab Interpretation (test Normal code = 28098-7) [facility]US2021-[facility]-28 08:04:00 Test Item Value Reference Range Interpretation Comments PHOSPHORUS (BEAKER) (test code = 3.5 mg/dL 2.5-4.5 604) Cake Icer ID - [id number] METABOLIC [id number] 06:06:00 Test Item Value Reference Range Interpretation [...] S NOT APPLICABLE FOR DIALYSIS PATIEN TS. Cake Icer ID - [id number] ID - [id number] ID - [id number] ID - OLKG25Dtrrauib ID - ZCMS45Cepozvtx ID - DOVD90Acesxkec ID - ATJI51Dhgjvicc ID - RHAE15Zutzmwjs ID - QXGR75Pcizzbvg ID - [id number] 05:56:00 Test Item Value Reference Range Interpretation Comments MAGNESIUM (BEAKER) (test code = 1.5 mg/dL 1.5-3.0 627) Cake Icer ID - [id number] ID - [id number] ID - [id number] ID - [id number] CBC W/PLT COUNT & AUTO [id number] 05:39:00 Test Item Value Reference Range Interpretation [...] PERCENT (BEAKER) (test code = 2801) POCT-GLUCOSE [id number] 20:58:00 Test Item Value Reference Range Interpretation Comments POC-GLUCOSE METER 126 mg/dL 70-110 H : TESTED A T [facility] [address]17 (BEAKER) (test code [address], = 1538) [facility] 77 478: Cake Icer/Techni cornelia ID = [id number] for Rachel Branham POCT-GLUCOSE [id number] 17:16:00 Test Item Value Reference Range Interpretation Comments POC-GLUCOSE METER 201 mg/dL 70-110 H : TESTED A T [facility] 1317 (BEAKER) (test code [address], = 1538) [facility] 77 478: Cake Icer/Techni cornelia ID = [id number] for Mily Coy SARS-CoV2/RT-PCR (Asymptomatic ONLY)2020-09-22 12:08:00 Test Item Value Reference Range Interpretation Comments SARS-COV2/RT-PCR Negative Not Detected, Performanc e of the Xpert (test code = Negative, See Xpress 60053-5) external report SARS-CoV-2/F siddhartha/RSV test for linked [...] iological data, and other data available to e clinician evalu ating the patient. Inval id test results may occ ur from improper specim en collection; matilde lure to follow the brady mmended sample collecti on, handling, and s torage procedures; nik hnical error. False ne gative results may occ ur if virus is presen t at levels below e analytical limi t of detection (LOD: [...] Fact Sh eet for Healthcare Prov iders: https://www.Grid20/20/ Documents/Xpert %20Xpress %90SCUE-NsP-4-F siddhartha-RSV/30 2-4508%20Rev.%2 0B%20HCP% 20Fact%20Sheet. pdf Fact Sheet for Healt hcare Patients: https://www.Grid20/20/ Documents/Xpert %20Xpress %93PPCQ-HtQ-3-F siddhartha-RSV/30 2-4507%20Rev.%2 0B%20Pati ent%20Fact%20Sh eet.pdf SARS-COV-2 SLSL Performed at:[facility] PERFORMING LAB [facility]fp[facility]yg1098 (test code = Ignacio Nelson [address]-4) [place] [address] ph: [phone] [facility]omatic ONLY)2020-09-22 12:08:00 Test Item Value Reference Range Interpretation Comments SARS-COV2/RT-PCR Negative Not Detected, Performanc e of the Xpert (test code = Negative, See Xpress 56027-5) external report SARS-CoV-2/F siddhartha/RSV test for linked [...] evoked sooner. Fact Sh eet for Healthcare [facility] iders: https://www.cep heid.com/ Documents/Xpert %20Xpress %22NGNK-CoE-1-F siddhartha-RSV/30 24508%20Rev.%2 0B%20HCP% 20Fact%20Sheet. pdf Fact Sheet for Healt hcare Patients: https://www.oohiloveid.com/ Documents/Xpert %20Xpress %65QQJI-QbP-1-F siddhartha-RSV/30 24507%20Rev.%2 0B%20Pati ent%20Fact%20Sh eet.pdf SARS-COV-2 SLSL Performed at:[facility] PERFORMING LAB Amy [address] (test code = [address] [address]-5) [place] [address] ph: [phone] [facility] (Asymptomatic ONLY)2020-09-22 12:08:00 Test Item Value Reference Range Interpretation Comments SARS-COV2/RT-PCR Negative Not Detected, Performanc e of the Xpert (test code = Negative, See Xpress 13767-0) external report SARS-CoV-2/F siddhartha/RSV test for linked [...] Fact Sh eet for Healthcare Prov iders: https://www.Grid20/20/ Documents/Xpert %20Xpress %02BMAB-KfN-1-F siddhartha-RSV/30 2-4508%20Rev.%2 0B%20HCP% 20Fact%20Sheet. pdf Fact Sheet for Healt hcare Patients: https://www.Kno.[employer]/ Documents/Xpert %20Xpress %62RMXC-PkJ-3-F siddhartha-RSV/30 2-4507%20Rev.%2 0B%20Pati ent%20Fact%20Sh eet.pdf SARS-COV-2 SLSL Performed at:[facility] PERFORMING LAB Amy [address] (test code = Ignacio Nelson [address]76[address]-8) [place] [address] ph: [phone] [facility] (Asymptomatic ONLY)2020-09-22 12:08:00 Test Item Value Reference Range Interpretation Comments SARS-COV2/RT-PCR Negative Not Detected, Performanc e of the Xpert (test code = Negative, See Xpress 88922-2) external report SARS-CoV-2/F siddhartha/RSV test for linked [...] Fact Sh eet for Healthcare Prov iders: https://www.Kno.[employer]/ Documents/Xpert %20Xpress %17QEEM-LnK-5-F siddhartha-RSV/30 2-4508%20Rev.%2 0B%20HCP% 20Fact%20Sheet. pdf Fact Sheet for Healt hcare Patients: https://www.Grid20/20/ Documents/Xpert %20Xpress %67XSXA-DyW-5-F siddhartha-RSV/30 2-4507%20Rev.%2 0B%20Pati ent%20Fact%20Sh eet.pdf SARS-COV-2 SLSL Performed at:[facility] PERFORMING LAB Amy [address]17 (test code = Ignacio [address] [address]-2) [place] [id number] ph: [phone] [facility] (Asymptomatic ONLY)2020-09-22 12:08:00 Test Item Value Reference Range Interpretation Comments SARS-COV2/RT-PCR Negative Not Detected, Performanc e of the Xpert (test code = Negative, See Xpress 50563-0) external report SARS-CoV-2/F siddhartha/RSV test for linked [...] Fact Sh eet for Healthcare Prov iders: https://www.Kno.com/ Documents/Xpert %20Xpress %30MKEF-XaG-9-F siddhartha-RSV/30 2-4508%20Rev.%2 0B%20HCP% 20Fact%20Sheet. pdf Fact Sheet for Healt hcare Patients: https://www.[employer]no.com/ Documents/Xpert %20Xpress %40XWFM-MyZ-5-F siddhartha-RSV/30 2-4507%20Rev.%2 0B%20Pati ent%20Fact%20Sh eet.pdf SARS-COV-2 SLSL Performed at:[facility] PERFORMING LAB Amy Graff utklpb9308 (test code = Ignacio Nelson 47454-6) [place] [address] ph: [phone] [facility] (Asymptomatic ONLY)2020-09-22 12:08:00 Test Item Value Reference Range Interpretation Comments SARS-COV2/RT-PCR Negative Not Detected, Performanc e of the Xpert (test code = Negative, See Xpress 46835-9) external report SARS-CoV-2/F siddhartha/RSV test for linked [...] Fact Sh eet for Healthcare Prov iders: https://www.Grid20/20/ Documents/Xpert %20Xpress %72UVSQ-ZfL-5-F siddhartha-RSV/30 2-4508%20Rev.%2 0B%20HCP% 20Fact%20Sheet. pdf Fact Sheet for Healt hcare Patients: https://www.Grid20/20/ Documents/Xpert %20Xpress %55BQOI-KqQ-7-F siddhartha-RSV/30 2-4507%20Rev.%2 0B%20Pati ent%20Fact%20Sh eet.pdf SARS-COV-2 SLSL Performed at:[facility] PERFORMING LAB [facility]1317 (test code = Pierre Aleta Nelson [address]-6) [place] [address] ph: [phone] [facility] (Asymptomatic ONLY)2020-09-22 12:08:00 Test Item Value Reference Range Interpretation Comments SARS-COV2/RT-PCR Negative Not Detected, Performanc e of the Xpert (test code = Negative, See Xpress 93765-4) external report SARS-CoV-2/F siddhartha/RSV test for linked [...] Fact Sh eet for Healthcare Prov iders: https://www.Kno.[employer]/ Documents/Xpert %20Xpress %17LVMI-MfV-4-F siddhartha-RSV/30 2-4508%20Rev.%2 0B%20HCP% 20Fact%20Sheet. pdf Fact Sheet for Healt hcare Patients: https://www.Kno.[employer]/ Documents/Xpert %20Xpress %01AFZY-NfP-5-F siddhartha-RSV/30 2-4507%20Rev.%2 0B%20Pati ent%20Fact%20Sh eet.pdf SARS-COV-2 SLSL Performed at:[facility] PERFORMING LAB Amy fine1317 (test code = Ignacio Nelson 44341-3) [place] [address] ph: [phone] [facility]OV2/[facility]-PCR (HS & REF LABS)2020-09-22 12:08:00 Test Item Value Reference Range Interpretation Comments SARS-COV2/RT-PCR Negative Not Detected, Performanc e of the Xpert (test code = Negative, See Xpress 3922268) external report SARS-CoV-2/F siddhartha/RSV test for linked [...] sooner.Fact She et for Healthcare Prov iders: https://www.Grid20/20/ Documents/Xpert %20Xpress %18RBNN-CgN-9-F siddhartha-RSV/30 2-4508%20Rev.%2 0B%20HCP% 20Fact%20Sheet. pdfFact Sheet for Healt hcare Patients: https://www.Grid20/20/ Documents/Xpert %20Xpress %68SELG-FgI-7-F siddhartha-RSV/30 2-4507%20Rev.%2 0B%20Pati ent%20Fact%20Sh eet.pdf SARS-COV-2 SLSL Performed at:[facility] (test code = [facility] 6312879) [place] [address] ph: [phone] CBC W/PLT COUNT & AUTO [id number] 07:40:00 Test Item Value Reference Range Interpretation [...] H PERCENT (BEAKER) (test code = 2801) PT/xQOW3268-43-19 07:34:00 Test Item Value Reference Interpretation Comments [...] PTT (test code = 28.0 See_Comment Final 32800-9) Information (Auto Output) [Automated message] The system [...] valves. Lab Interpretation Abnormal (test code = 94995-7) [facility]nJSM1007-07-57 07:34:00 Test Item Value Reference Interpretation Comments Range Protime (test code = 14.2 See_Comment H Final 5902-2) Information (Auto Output) [Automated message] The system which generated this result transmitted reference range : 9.3 - 12.0 seconds. The reference range was not used to interpret this result as normal/abnormal . INR (test code = 1.30 See_Comment Final 0671-6) Information (Auto Output) [Automated message] The system which generated this result transmitted reference range : <=5.90. The reference range was not used to interpret this result as normal/abnormal . PTT (test code = 28.0 See_Comment Final 77227-9) Information (Auto Output) [Automated message] The system [...] valves. Lab Interpretation Abnormal (test code = 18126-1) [facility]/[id number] 07:34:00 Test Item Value Reference Interpretation Comments [...] PTT (test code = 28.0 See_Comment Final 51765-4) Information (Auto Output) [Automated message] The system [...] valves. Lab Interpretation Abnormal (test code = 85954-0) [facility]/mGEK4720-50-91 07:34:00 Test Item Value Reference Interpretation Comments [...] PTT (test code = 28.0 See_Comment Final 22761-1) Information (Auto Output) [Automated message] The system [...] valves. Lab Interpretation Abnormal (test code = 31207-8) [facility]/sZGA2168-60-30 07:34:00 Test Item Value Reference Interpretation Comments [...] PTT (test code = 28.0 See_Comment Final 46130-2) Information (Auto Output) [Automated message] The system [...] valves. Lab Interpretation Abnormal (test code = 29924-7) [facility]/lYSC6598-05-06 07:34:00 Test Item Value Reference Interpretation Comments [...] PTT (test code = 28.0 See_Comment Final 38375-4) Information (Auto Output) [Automated message] The system [...] valves. Lab Interpretation Abnormal (test code = 08443-0) [facility]/[id number] 07:34:00 Test Item Value Reference Interpretation Comments [...] PTT (test code = 28.0 See_Comment Final 55249-3) Information (Auto Output) [Automated message] The system [...] valves. Lab Interpretation Abnormal (test code = 30005-4) [facility]/QEOC8957-04-27 07:34:00 Test Item Value Reference Range Interpretation Comments PROTIME (BEAKER) (test 14.2 seconds 9.3-12.0 H Final Information code = 759) (Auto Output) INR (BEAKER) (test 1.30 See_Comment Final Inf ormation code = 370) (Auto Output) [Automated mess age] The system [employer] generated this result transmit josé luis reference [...] B-TYPE NATRIURETIC PEPTIDE 1703 pg/mL 0-100 H (CECILIO) (test code = 700) Cake Icer ID - [id number] E0325-39-00 07:29:00 Test Item Value Reference Range Interpretation Comments Troponin I (test code = 0.05 ng/mL 0-0.15 81748-7) ISSA (test code = ISSA) Troponin I [...] failure, acidosis, acute neurological disease, and persistent tachyarrhythmia.[facility] ID - [id number] Lab Interpretation (test Normal code = 67362-7) [facility] HospitalTroponin [id number] 07:29:00 Test Item Value Reference Range Interpretation Comments Troponin I (test code = 0.05 ng/mL 0-0.15 91696-1) ISSA (test code = ISSA) Troponin I [...] failure, acidosis, acute neurological disease, and persistent tachyarrhythmia.[facility] ID - [id number] Lab Interpretation (test Normal code = 50564-7) [facility] [id number] 07:29:00 Test Item Value Reference Range Interpretation Comments Troponin I (test code = 0.05 ng/mL 0-0.15 39508-2) ISSA (test code = ISSA) Troponin I [...] failure, acidosis, acute neurological disease, and persistent tachyarrhythmia.[facility] ID - [id number] Lab Interpretation (test Normal code = 52126-2) [facility] [id number] 07:29:00 Test Item Value Reference Range Interpretation Comments Troponin I (test code = 0.05 ng/mL 0-0.15 72777-1) ISSA (test code = ISSA) Troponin I [...] failure, acidosis, acute neurological disease, and persistent tachyarrhythmia.[facility] ID - [id number] Lab Interpretation (test Normal code = 34556-2) [facility] [id number] 07:29:00 Test Item Value Reference Range Interpretation Comments Troponin I (test code = 0.05 ng/mL 0.00-0.15 72087-4) ISSA (test code = ISSA) Troponin I [...] failure, acidosis, acute neurological disease, and persistent tachyarrhythmia.[facility] ID - [id number] Lab Interpretation (test Normal code = 55640-2) [facility] [id number] 07:29:00 Test Item Value Reference Range Interpretation Comments Troponin I (test code = 0.05 ng/mL 0.00-0.15 01119-6) ISSA (test code = ISSA) Troponin I [...] failure, acidosis, acute neurological disease, and persistent tachyarrhythmia.[facility] ID - [id number] Lab Interpretation (test Normal code = 10432-9) [facility] [id number] 07:29:00 Test Item Value Reference Range Interpretation Comments Troponin I (test code = 0.05 ng/mL 0.00-0.15 40857-4) ISSA (test code = ISSA) Troponin I [...] failure, acidosis, acute neurological disease, and persistent tachyarrhythmia.[facility] ID - [id number] Lab Interpretation (test Normal code = 59374-2) [facility] [id number] 07:29:00 Test Item Value Reference Range Interpretation [...] failure, acidosis, acute neurological disease, and persistent tachyarrhythmia.Cake Icer ID - [id number] METABOLIC [id number] 07:25:00 Test Item Value Reference Range Interpretation [...] S NOT APPLICABLE FOR DIALYSIS PATIEN TS. Cake Icer ID - [id number] ID - ulbe67Zvjuibnf ID - fhfs99Bsmpxwph ID - dpts27Ropopuza ID - iwpc64Zfsktavl ID - pans33Fwyhuhjj ID - znpc73Syrtheto ID - ncom42Zutodjxz ID - eryr50Dutgfvvj ID - ourm14Gajvdrnq ID - ptgv22Sxrfvguy ID - flkd28Bjphcfyy ID - rpcp47EWV, CHEST, 1 VIEW, NON [id number] 06:44:00Reason for exam:->SHORTNESS OF BREATHReason for exam:->CHEST PAINShould this be performed at the bedside?->Yes [facility] 1975 Sex: MFINAL REPORT [...] 6:44 AMXR chest 1 view portable / ccercjs6146-87-19 06:44:00Interface, External Ris In - 09/22/2020 6:47 [...] cardiomegaly.Signed: Moose Petersen Verified Date/Time: 09/22/2020 06:44:53 [facility] / wtijupq8615-45-98 06:44:00 Interface, External Ris In - 09/22/2020 [...] Signed: Moose Petersen Verified Date/Time: 09/22/2020 06:44:53 [facility] / nxtpflx5553-86-42 06:44:00 Interface, External Ris In - 09/22/2020 [...] Signed: Moose Petersen Verified Date/Time: 09/22/2020 06:44:53 [facility] / eizsbgc3082-08-17 06:44:00 Interface, External Ris In - 09/22/2020 [...] Signed: Moose Petersen Verified Date/Time: 09/22/2020 06:44:53 [facility] Sbmurkurllexzo0493-50-95 06:40:53 Test Item Value Reference Range Interpretation [...] 74 BPM.Abnormal conduction noted: LAFB.T waves abnormal. [place] is normal. Other findings include: prolonged QTc interval. Clinical Impression: abnormal ECG Lab Interpretation Abnormal (test code = 01334-5) [facility]KG Wbjtsprxgqzreb6093-92-20 06:40:53 Test Item Value Reference Range Interpretation [...] 74 BPM.Abnormal conduction noted: LAFB.T waves abnormal. [place] is normal. Other findings include: prolonged QTc interval. Clinical Impression: abnormal ECG Lab Interpretation Abnormal (test code = 11770-9) [facility] [id number] 06:40:53 Test Item Value Reference Range Interpretation [...] 74 BPM.Abnormal conduction noted: LAFB.T waves abnormal. [place] is normal. Other findings include: prolonged QTc interval. Clinical Impression: abnormal ECG Lab Interpretation Abnormal (test code = 23406-7) [facility] [id number] 06:40:53 Test Item Value Reference Range Interpretation [...] 74 BPM.Abnormal conduction noted: LAFB.T waves abnormal. [place] is normal. Other findings include: prolonged QTc interval. Clinical Impression: abnormal ECG Lab Interpretation Abnormal (test code = 74576-2) [facility] [id number] 06:40:53 Test Item Value Reference Range Interpretation [...] 74 BPM.Abnormal conduction noted: LAFB.T waves abnormal. [place] is normal. Other findings include: prolonged QTc interval. Clinical Impression: abnormal ECG Lab Interpretation Abnormal (test code = 83438-9) [facility] Uxufjsrefbnhfm1098-50-69 06:40:53 Test Item Value Reference Range Interpretation [...] 74 BPM.Abnormal conduction noted: LAFB.T waves abnormal. [place] is normal. Other findings include: prolonged QTc interval. Clinical Impression: abnormal ECG Lab Interpretation Abnormal (test code = 48245-8) [facility] Tytjamgzdysscf2653-30-21 06:40:53 Test Item Value Reference Range Interpretation [...] 74 BPM.Abnormal conduction noted: LAFB.T waves abnormal. [place] is normal. Other findings include: prolonged QTc interval. Clinical Impression: abnormal ECG Lab Interpretation Abnormal (test code = 17064-8) [facility]-[id number] 00:00:00Ordered by an unspecified provider.[facility]-[id number] 00:00:00 Ordered by an unspecified provider.[facility]-SCANNED 2020-09-22 00:00:00Ordered by an unspecified provider.[facility]-[id number] 00:00:00Ordered by an unspecified provider.[facility] Description: Natriuretic peptide B [Mass/volume] in Serum or [id number] 15:06:00 Test Item Value Reference Range Interpretation Comments B-Type Natriuretic Peptide (test 614.6 pg/mL 0.0-100.0 H code = 92503-8) [facility] Description: Natriuretic peptide B [Mass/volume] in Serum or [id number] 15:06:00 Test Item Value Reference Range Interpretation Comments B-Type Natriuretic Peptide (test 614.6 pg/mL 0.0-100.0 H code = 49213-4) [facility] Description: Natriuretic peptide B [Mass/volume] in Serum or [id number] 15:06:00 Test Item Value Reference Range Interpretation Comments B-Type Natriuretic Peptide (test 614.6 pg/mL 0.0-100.0 H code = 98379-1) [facility] Description: Natriuretic peptide B [Mass/volume] in Serum or [id number] 15:06:00 Test Item Value Reference Range Interpretation Comments B-Type Natriuretic Peptide (test 614.6 pg/mL 0.0-100.0 H code = 76720-8) [facility] Description: Natriuretic peptide B [Mass/volume] in Serum or [id number] 15:06:00 Test Item Value Reference Range Interpretation Comments B-Type Natriuretic Peptide (test 614.6 pg/mL 0.0-100.0 H code = 78381-2) [facility] Description: Natriuretic peptide B [Mass/volume] in Serum or [id number] 15:06:00 Test Item Value Reference Range Interpretation Comments B-Type Natriuretic Peptide (test 614.6 pg/mL 0.0-100.0 H code = 66630-0) [facility] Description: Natriuretic peptide B [Mass/volume] in Serum or [id number] 15:06:00 Test Item Value Reference Range Interpretation Comments B-Type Natriuretic Peptide (test 614.6 pg/mL 0.0-100.0 H code = 22120-8) [facility] Description: Natriuretic peptide B [Mass/volume] in Serum or [id number] 15:06:00 Test Item Value Reference Range Interpretation Comments B-Type Natriuretic Peptide (test 614.6 pg/mL 0.0-100.0 H code = 24537-2) [facility] Description: Natriuretic peptide B [Mass/volume] in Serum or [id number] 15:06:00 Test Item Value Reference Range Interpretation Comments B-Type Natriuretic Peptide (test 614.6 pg/mL 0.0-100.0 H code = 28615-0) [facility] Description: Natriuretic peptide B [Mass/volume] in Serum or [id number] 15:06:00 Test Item Value Reference Range Interpretation Comments B-Type Natriuretic Peptide (test 614.6 pg/mL 0.0-100.0 H code = 96036-8) [facility] Description: Natriuretic peptide B [Mass/volume] in Serum or [id number] 15:06:00 Test Item Value Reference Range Interpretation Comments B-Type Natriuretic Peptide (test 614.6 pg/mL 0.0-100.0 H code = 62836-1) [facility] Description: Natriuretic peptide B [Mass/volume] in Serum or [id number] 15:06:00 Test Item Value Reference Range Interpretation Comments B-Type Natriuretic Peptide (test 614.6 pg/mL 0.0-100.0 H code = 53276-8) [facility] Description: Lipid [id number] 01:45:00 Test Item Value Reference Range Interpretation Comments Cholesterol, Total (test code = 207 mg/dL 100-199 H 2092-3) Triglycerides (test code = 2571-8) 126 mg/dL 0-149 HDL Cholesterol (test code = 37 mg/dL >39 L 9) VLDL Cholesterol [place] (test code = 23 mg/dL 5-40 62089-9) LDL Chol Calc (NIH) (test code = 147 mg/dL 0-99 H 31601-3) Comment: (test code = 10349-2) [facility] Description: Lipid [id number] 01:45:00 Test Item Value Reference Range Interpretation Comments Cholesterol, Total (test code = 207 mg/dL 100-199 H 3-3) Triglycerides (test code = 2571-8) 126 mg/dL 0-149 HDL Cholesterol (test code = 37 mg/dL >39 L 2085-9) VLDL Cholesterol Renuka (test code = 23 mg/dL 5-40 85529-6) LDL Chol Calc (NIH) (test code = 147 mg/dL 0-99 H 38739-0) Comment: (test code = 26621-4) [employer] Description: Lipid [id number] 01:45:00 Test Item Value Reference Range Interpretation Comments Cholesterol, Total (test code = 207 mg/dL 100-199 H 3-3) Triglycerides (test code = 2571-8) 126 mg/dL 0-149 HDL Cholesterol (test code = 37 mg/dL >39 L 5-9) VLDL Cholesterol Renuka (test code = 23 mg/dL 5-40 90774-6) LDL Chol Calc (NIH) (test code = 147 mg/dL 0-99 H 62162-6) Comment: (test code = 97775-8) [employer] Description: Lipid [id number] 01:45:00 Test Item Value Reference Range Interpretation Comments Cholesterol, Total (test code = 207 mg/dL 100-199 H 3-3) Triglycerides (test code = 2571-8) 126 mg/dL 0-149 HDL Cholesterol (test code = 37 mg/dL >39 L 2084-9) VLDL Cholesterol Renuka (test code = 23 mg/dL 5-40 45691-8) LDL Chol Calc (NIH) (test code = 147 mg/dL 0-99 H 70909-2) Comment: (test code = 07785-9) [employer] Description: Lipid [id number] 01:45:00 Test Item Value Reference Range Interpretation Comments Cholesterol, Total (test code = 207 mg/dL 100-199 H 3-3) Triglycerides (test code = 2571-8) 126 mg/dL 0-149 HDL Cholesterol (test code = 37 mg/dL >39 L 5-9) VLDL Cholesterol Renuka (test code = 23 mg/dL 5-40 63954-1) LDL Chol Calc (NIH) (test code = 147 mg/dL 0-99 H 89622-7) Comment: (test code = 75023-0) [employer] Description: Lipid [id number] 01:45:00 Test Item Value Reference Range Interpretation Comments Cholesterol, Total (test code = 207 mg/dL 100-199 H 2093-3) Triglycerides (test code = 2571-8) 126 mg/dL 0-149 HDL Cholesterol (test code = 37 mg/dL >39 L 5-9) VLDL Cholesterol Renuka (test code = 23 mg/dL 5-40 33428-3) LDL Chol Calc (NIH) (test code = 147 mg/dL 0-99 H 81272-3) Comment: (test code = 19840-5) [employer] Description: Lipid [id number] 01:45:00 Test Item Value Reference Range Interpretation Comments Cholesterol, Total (test code = 207 mg/dL 100-199 H 3-3) Triglycerides (test code = 2571-8) 126 mg/dL 0-149 HDL Cholesterol (test code = 37 mg/dL >39 L 5-9) VLDL Cholesterol [place] (test code = 23 mg/dL 5-40 39660-5) LDL Chol Calc (NIH) (test code = 147 mg/dL 0-99 H 96577-1) Comment: (test code = 78474-5) [employer] Description: Lipid [id number] 01:45:00 Test Item Value Reference Range Interpretation Comments Cholesterol, Total (test code = 207 mg/dL 100-199 H 3-3) Triglycerides (test code = 2571-8) 126 mg/dL 0-149 HDL Cholesterol (test code = 37 mg/dL >39 L 5-9) VLDL Cholesterol [place] (test code = 23 mg/dL 5-40 06201-0) LDL Chol Calc (NIH) (test code = 147 mg/dL 0-99 H 57366-0) Comment: (test code = 44546-8) [employer] Description: Lipid [id number] 01:45:00 Test Item Value Reference Range Interpretation Comments Cholesterol, Total (test code = 207 mg/dL 100-199 H 3-3) Triglycerides (test code = 2571-8) 126 mg/dL 0-149 HDL Cholesterol (test code = 37 mg/dL >39 L 5-9) VLDL Cholesterol [place] (test code = 23 mg/dL 5-40 25979-7) LDL Chol Calc (NIH) (test code = 147 mg/dL 0-99 H 28787-3) Comment: (test code = 30687-9) [employer] Description: Lipid [id number] 01:45:00 Test Item Value Reference Range Interpretation Comments Cholesterol, Total (test code = 207 mg/dL 100-199 H 3-3) Triglycerides (test code = 2571-8) 126 mg/dL 0-149 HDL Cholesterol (test code = 37 mg/dL >39 L 2085-9) VLDL Cholesterol [place] (test code = 23 mg/dL 5-40 34157-7) LDL Chol Calc (NIH) (test code = 147 mg/dL 0-99 H 07475-5) Comment: (test code = 84898-8) [employer] Description: Lipid [id number] 01:45:00 Test Item Value Reference Range Interpretation Comments Cholesterol, Total (test code = 207 mg/dL 100-199 H 3-3) Triglycerides (test code = 2571-8) 126 mg/dL 0-149 HDL Cholesterol (test code = 37 mg/dL >39 L 5-9) VLDL Cholesterol [place] (test code = 23 mg/dL 5-40 08917-6) LDL Chol Calc (NIH) (test code = 147 mg/dL 0-99 H 37612-3) Comment: (test code = 76755-5) [employer] Description: Lipid [id number] 01:45:00 Test Item Value Reference Range Interpretation Comments Cholesterol, Total (test code = 207 mg/dL 100-199 H 3-3) Triglycerides (test code = 2571-8) 126 mg/dL 0-149 HDL Cholesterol (test code = 37 mg/dL >39 L 5-9) VLDL Cholesterol [place] (test code = 23 mg/dL 5-40 48014-0) LDL Chol Calc (NIH) (test code = 147 mg/dL 0-99 H 19252-3) Comment: (test code = 77653-8) [employer] Description: Comp. Metabolic Panel (14)2020-08-16 01:19:00 Test Item Value Reference Range Interpretation Comments Glucose (test code 424 mg/dL 65-99 H = 2345-7) BUN (test code = 27 mg/dL 6-24 H 3094-0) Creatinine (test 1.88 mg/dL 0.76-1.27 H code = 2160-0) eGFR If NonAfricn 42 >59 L Am (test code = mL/min/1.73 79488-7) eGFR If Africn Am 48 >59 L [facility] currently (test code = mL/min/1.73 [place] [address]-9) compliance with the current recommendations of the [employer] Kid[employer]. [place] will update re porting as new guidelin es are published from the NKF-ASN Task force.
<br/ >Perfor med by:
Lab [place] Vincent (HD)

BUN/Creatinine 14 9-20 Ratio (test code = 3097-3) Sodium (test code = 138 mmol/L 354-501 6690-2) Potassium (test 4.2 mmol/L 3.5-5.2 code = 2823-3) Chloride (test code 98 mmol/L 96-106 = 2075-0) Carbon Dioxide, 28 mmol/L 20-29 Total (test code = 2027-) Calcium (test code 8.4 mg/dL 8.7-10.2 L = 64433-3) Protein, Total 6.1 g/dL 6.0-8.5 (test code = 2885-2) Albumin (test code 3.0 g/dL 4.0-5.0 L = 1751-7) Globulin, Total 3.1 g/dL 1.5-4.5 (test code = 26128-5) A/G Ratio (test 1.0 1.2-2.2 L code [...] >59 L Am (test code = mL/min/1.73 28165-4) eGFR If Afric[place] Am 48 >59 L [facility] currently (test code = mL/min/1.73 [place] [address]889-6) compliance with the current recommendations of the National Kid[employer] Foundation. [place] will update re porting as new guidelin es are published from the NKF-ASN Task force.
<br/ >Perfor med by:
Lab [place] Kaur (HD)

BUN/Creatinine 14 9-20 Ratio (test code = 3097-3) Sodium (test code = 138 mmol/L 686-715 1914-2) Potassium (test 4.2 mmol/L 3.5-5.2 code = 2823-3) Chloride (test code 98 mmol/L 96-106 = 2075-0) Carbon Dioxide, 28 mmol/L 20-29 Total (test code = 8-9) Calcium (test code 8.4 mg/dL 8.7-10.2 L = 43530-3) Protein, Total 6.1 g/dL 6.0-8.5 (test code = 2885-2) Albumin (test code 3.0 g/dL 4.0-5.0 L = 1751-7) Globulin, Total 3.1 g/dL 1.5-4.5 (test code = 62514-0) A/G Ratio (test 1.0 1.2-2.2 L code = 1759-0) Bilirubin, Total 0.6 mg/dL 0.0-1.2 (test code = 1975-2) Alkaline 130 IU/L 48-121 H Phosphatase (test Pl ease note code = 6768-6) reference int erval change
<b r/>Perf ormed by:
[facility] ([place])

AST (SGOT) (test 15 IU/L 0-40 code = 1920-8) ALT (SGPT) (test 18 IU/L 0-44 code = 1742-6) [facility] Description: Comp. Metabolic Panel (2020-08-16 01:19:00 Test Item Value Reference Range Interpretation Comments Glucose (test code 424 mg/dL 65-99 H = 2345-7) BUN (test code = 27 mg/dL 6-24 H 3094-0) Creatinine (test 1.88 mg/dL 0.76-1.27 H code = 2160-0) eGFR If NonAfricn 42 >59 L Am (test code = mL/min/1.73 35820-5) eGFR If Afric[place] Am 48 >59 L [facility] currently (test code = mL/min/1.73 [place] [address]-1) compliance with the current recommendations of the [employer] Kid[employer] Foundation. [place] will update re porting as new guidelin es are published from the NKF-ASN Task force.
<br/ >Perfor med by:
Lab [place] Kaur (HD)

BUN/Creatinine 14 9-20 Ratio (test code = 3097-3) Sodium (test code = 138 mmol/L 896-178 4708-2) Potassium (test 4.2 mmol/L 3.5-5.2 code = 2823-3) Chloride (test code 98 mmol/L 96-106 = 2075-0) Carbon Dioxide, 28 mmol/L 20-29 Total (test code = 2027-) Calcium (test code 8.4 mg/dL 8.7-10.2 L = 86324-1) Protein, Total 6.1 g/dL 6.0-8.5 (test code = 2885-2) Albumin (test code 3.0 g/dL 4.0-5.0 L = 1751-7) Globulin, Total 3.1 g/dL 1.5-4.5 (test code = 43983-7) A/G Ratio (test 1.0 1.2-2.2 L code [...] >59 L Am (test code = mL/min/1.73 11991-5) eGFR If Africn Am 48 >59 L [facility] currently (test code = mL/min/1.73 [place] [address]-8) compliance with the current recommendations of the [employer] Kid[employer]. [place] will update re porting as new guidelin es are published from the NKF-ASN Task force.
<br/ >Perfor med by:
Lab [place] Kaur (HD)

BUN/Creatinine 14 9-20 Ratio (test code = 3097-3) Sodium (test code = 138 mmol/L 836-899 8760-2) Potassium (test 4.2 mmol/L 3.5-5.2 code = 2823-3) Chloride (test code 98 mmol/L 96-106 = 2075-0) Carbon Dioxide, 28 mmol/L 20-29 Total (test code = 2027-) Calcium (test code 8.4 mg/dL 8.7-10.2 L = 67304-3) Protein, Total 6.1 g/dL 6.0-8.5 (test code = 2885-2) Albumin (test code 3.0 g/dL 4.0-5.0 L = 1751-7) Globulin, Total 3.1 g/dL 1.5-4.5 (test code = 68603-7) A/G Ratio (test 1.0 1.2-2.2 L code [...] 1742-6) [facility] Description: Comp. Metabolic Panel (14)2020-08-16 01:19:00 Test Item Value Reference Range Interpretation Comments Glucose (test code 424 mg/dL 65-99 H = 2345-7) BUN (test code = 27 mg/dL 6-24 H 3094-0) Creatinine (test 1.88 mg/dL 0.76-1.27 H code = 2160-0) eGFR If NonAfricn 42 >59 L Am (test code = mL/min/1.73 13471-2) eGFR If Africn Am 48 >59 L [facility] currently (test code = mL/min/1.73 [place] [address]487-4) compliance with the current recommendations of the [employer] Kid[employer]. [place] will update re porting as new guidelin es are published from the NKF-ASN Task force.
<br/ >Perfor med by:
Lab [place] Kaur (HD)

BUN/Creatinine 14 9-20 Ratio (test code = 3097-3) Sodium (test code = 138 mmol/L 245-913 3844-2) Potassium (test 4.2 mmol/L 3.5-5.2 code = 2823-3) Chloride (test code 98 mmol/L 96-106 = 5-0) Carbon Dioxide, 28 mmol/L 20-29 Total (test code = 2027-) Calcium (test code 8.4 mg/dL 8.7-10.2 L = 88461-4) Protein, Total 6.1 g/dL 6.0-8.5 (test code = 2885-2) Albumin (test code 3.0 g/dL 4.0-5.0 L = 1751-7) Globulin, Total 3.1 g/dL 1.5-4.5 (test code = 31615-3) A/G Ratio (test 1.0 1.2-2.2 L code = 1759-0) Bilirubin, Total 0.6 mg/dL 0.0-1.2 (test code = 1975-2) Alkaline 130 IU/L 48-121 H Phosphatase (test Pl ease note code = 6768-6) reference int erval change
<b r/>Perf ormed by:
[facility] ([place])

AST (SGOT) (test 15 IU/L 0-40 code = 1920-8) ALT (SGPT) (test 18 IU/L 0-44 code = 1742-6) [facility] Description: Comp. Metabolic Panel (14)2020-08-16 01:19:00 Test Item Value Reference Range Interpretation Comments Glucose (test code 424 mg/dL 65-99 H = 2345-7) BUN (test code = 27 mg/dL 6-24 H 3094-0) Creatinine (test 1.88 mg/dL 0.76-1.27 H code = 2160-0) eGFR If NonAfricn 42 >59 L Am (test code = mL/min/1.73 37542-0) eGFR If Africn Am 48 >59 L [facility] currently (test code = mL/min/1.73 [place] [address]74-3) compliance with the current recommendations of the National Kidney Foundation. [place] will update re porting as new guidelin es are published from the NKF-ASN Task force.
<br/ >Perfor med by:
Lab [place] [facility] (HD)

BUN/Creatinine 14 9-20 Ratio (test code = 3097-3) Sodium (test code = 138 mmol/L 336-291 6532-2) Potassium (test 4.2 mmol/L 3.5-5.2 code = 2823-3) Chloride (test code 98 mmol/L 96-106 = 2075-0) Carbon Dioxide, 28 mmol/L 20-29 Total (test code = 2027-) Calcium (test code 8.4 mg/dL 8.7-10.2 L = 99614-8) Protein, Total 6.1 g/dL 6.0-8.5 (test code = 2885-2) Albumin (test code 3.0 g/dL 4.0-5.0 L = 1751-7) Globulin, Total 3.1 g/dL 1.5-4.5 (test code = 92084-5) A/G Ratio (test 1.0 1.2-2.2 L code = 1759-0) Bilirubin, Total 0.6 mg/dL 0.0-1.2 (test code = 1974-2) Alkaline 130 IU/L 48-121 H Phosphatase (test Pl ease note code = 6768-6) reference int erval change
<b r/>Perf ormed by:
[facility] ([place])

AST (SGOT) (test 15 IU/L 0-40 code = 1920-8) ALT (SGPT) (test 18 IU/L 0-44 code = 1742-6) [facility] Description: Comp. Metabolic Panel (14)2020-08-16 01:19:00 Test Item Value Reference Range Interpretation Comments Glucose (test code 424 mg/dL 65-99 H = 2345-7) BUN (test code = 27 mg/dL 6-24 H 3094-0) Creatinine (test 1.88 mg/dL 0.76-1.27 H code = 2160-0) eGFR If NonAfricn 42 >59 L Am (test code = mL/min/1.73 27115-5) eGFR If Africn Am 48 >59 L [facility] currently (test code = mL/min/1.73 [place] 22732-7) compliance with the current recommendations of the National Kidney Foundation. [place] will update re porting as new guidelin es are published from the NKF-ASN Task force.
<br/ >Perfor med by:
Lab [place] [facility] (HD)

BUN/Creatinine 14 9-20 Ratio (test code = 3097-3) Sodium (test code = 138 mmol/L 191-604 5397-2) Potassium (test 4.2 mmol/L 3.5-5.2 code = 2823-3) Chloride (test code 98 mmol/L 96-106 = 2075-0) Carbon Dioxide, 28 mmol/L 20-29 Total (test code = 2027-9) Calcium (test code 8.4 mg/dL 8.7-10.2 L = 60008-2) Protein, Total 6.1 g/dL 6.0-8.5 (test code = 2885-2) Albumin (test code 3.0 g/dL 4.0-5.0 L = 1751-7) Globulin, Total 3.1 g/dL 1.5-4.5 (test code = 24649-6) A/G Ratio (test 1.0 1.2-2.2 L code = 1759-0) Bilirubin, Total 0.6 mg/dL 0.0-1.2 (test code = 1974-2) Alkaline 130 IU/L 48-121 H Phosphatase (test Pl ease note code = 6768-6) reference int erval change
<b r/>Perf ormed by:
[facility] ([place])

AST (SGOT) (test 15 IU/L 0-40 code = 1920-8) ALT (SGPT) (test 18 IU/L 0-44 code = 1742-6) [facility] Description: Comp. Metabolic Panel (14)2020-08-16 01:19:00 Test Item Value Reference Range Interpretation Comments Glucose (test code 424 mg/dL 65-99 H = 2345-7) BUN (test code = 27 mg/dL 6-24 H 3094-0) Creatinine (test 1.88 mg/dL 0.76-1.27 H code = 2160-0) eGFR If NonAfricn 42 >59 L Am (test code = mL/min/1.73 96699-5) eGFR If Africn Am 48 >59 L [facility] currently (test code = mL/min/1.73 [place] 08047-9) compliance with the current recommendations of the National Kidney Foundation. [place] will update re porting as new guidelin es are published from the NKF-ASN Task force.
<br/ >Perfor med by:
Lab [place] [facility] (HD)

BUN/Creatinine 14 9-20 Ratio (test code = 3097-3) Sodium (test code = 138 mmol/L 821-833 4644-2) Potassium (test 4.2 mmol/L 3.5-5.2 code = 2823-3) Chloride (test code 98 mmol/L 96-106 = 2075-0) Carbon Dioxide, 28 mmol/L 20-29 Total (test code = 2027-9) Calcium (test code 8.4 mg/dL 8.7-10.2 L = 94678-5) Protein, Total 6.1 g/dL 6.0-8.5 (test code = 2885-2) Albumin (test code 3.0 g/dL 4.0-5.0 L = 1751-7) Globulin, Total 3.1 g/dL 1.5-4.5 (test code = 56783-0) A/G Ratio (test 1.0 1.2-2.2 L code = 1759-0) Bilirubin, Total 0.6 mg/dL 0.0-1.2 (test code = 1975-2) Alkaline 130 IU/L 48-121 H Phosphatase (test Pl ease note code = 6768-6) reference int erval change
<b r/>Perf ormed by:
[facility] ([place])

AST (SGOT) (test 15 IU/L 0-40 code = 1920-8) ALT (SGPT) (test 18 IU/L 0-44 code = 1742-6) [facility]: Comp. Metabolic Panel (2020-08-16 01:19:00 Test Item Value Reference Range Interpretation Comments Glucose (test code 424 mg/dL 65-99 H = 2345-7) BUN (test code = 27 mg/dL 6-24 H 3094-0) Creatinine (test 1.88 mg/dL 0.76-1.27 H code = 2160-0) eGFR If NonAfricn 42 >59 L Am (test code = mL/min/1.73 40353-8) eGFR If Africn Am 48 >59 L [facility] currently (test code = mL/min/1.73 [place] [address]-1) compliance with the current recommendations of the National Kidney Foundation. [place] will update re porting as new guidelin es are published from the NKF-ASN Task force.
<br/ >Perfor med by:
Lab [place] [facility] (HD)

BUN/Creatinine 14 9-20 Ratio (test code = 3097-3) Sodium (test code = 138 mmol/L 117-125 4952-2) Potassium (test 4.2 mmol/L 3.5-5.2 code = 2823-3) Chloride (test code 98 mmol/L 96-106 = 2075-0) Carbon Dioxide, 28 mmol/L 20-29 Total (test code = 2027-) Calcium (test code 8.4 mg/dL 8.7-10.2 L = 52537-3) Protein, Total 6.1 g/dL 6.0-8.5 (test code = 2885-2) Albumin (test code 3.0 g/dL 4.0-5.0 L = 1751-7) Globulin, Total 3.1 g/dL 1.5-4.5 (test code = 37304-2) A/G Ratio (test 1.0 1.2-2.2 L code [...] 1742-6) [facility] Description: Comp. Metabolic Panel (14)2020-08-16 01:19:00 Test Item Value Reference Range Interpretation Comments Glucose (test code 424 mg/dL 65-99 H = 2345-7) BUN (test code = 27 mg/dL 6-24 H 3094-0) Creatinine (test 1.88 mg/dL 0.76-1.27 H code = 2160-0) eGFR If NonAfricn 42 >59 L Am (test code = mL/min/1.73 09170-7) eGFR If Africn Am 48 >59 L [facility] currently (test code = mL/min/1.73 [place] 05105-3) compliance with the current recommendations of the [employer] Kid[employer] Foundation. [place] will update re porting as new guidelin es are published from the NKF-ASN Task force.
<br/ >Perfor med by:
Lab [place] Kaur (HD)

BUN/Creatinine 14 9-20 Ratio (test code = 3097-3) Sodium (test code = 138 mmol/L 174-777 4580-2) Potassium (test 4.2 mmol/L 3.5-5.2 code = 2823-3) Chloride (test code 98 mmol/L 96-106 = 2075-0) Carbon Dioxide, 28 mmol/L 20-29 Total (test code = 2027-) Calcium (test code 8.4 mg/dL 8.7-10.2 L = 51035-5) Protein, Total 6.1 g/dL 6.0-8.5 (test code = 2885-2) Albumin (test code 3.0 g/dL 4.0-5.0 L = 1751-7) Globulin, Total 3.1 g/dL 1.5-4.5 (test code = 71939-5) A/G Ratio (test 1.0 1.2-2.2 L code = 1759-0) Bilirubin, Total 0.6 mg/dL 0.0-1.2 (test code = 1975-2) Alkaline 130 IU/L 48-121 H Phosphatase (test Pl ease note code = 6768-6) reference int erval change
<b r/>Perf ormed by:
[facility] ([place])

AST (SGOT) (test 15 IU/L 0-40 code = 1920-8) ALT (SGPT) (test 18 IU/L 0-44 code = 1742-6) Access [facility] Description: Comp. Metabolic Panel (14)2020-08-16 01:19:00 Test Item Value Reference Range Interpretation Comments Glucose (test code 424 mg/dL 65-99 H = 2345-7) BUN (test code = 27 mg/dL 6-24 H 3094-0) Creatinine (test 1.88 mg/dL 0.76-1.27 H code = 2160-0) eGFR If NonAfricn 42 >59 L Am (test code = mL/min/1.73 84052-1) eGFR If Africn Am 48 >59 L [facility] currently (test code = mL/min/1.73 [place] 160[address]-2) compliance with the current recommendations of the [employer]. [facility] [place] will update re porting as new guidelin es are published from the NKF-ASN Task force.
<br/ >Perfor med by:
[facility] (HD)

BUN/Creatinine 14 9-20 Ratio (test code = 3097-3) Sodium (test code = 138 mmol/L 958-861 4723-2) Potassium (test 4.2 mmol/L 3.5-5.2 code = 2823-3) Chloride (test code 98 mmol/L 96-106 = 2075-0) Carbon Dioxide, 28 mmol/L 20-29 Total (test code = 2027-) Calcium (test code 8.4 mg/dL 8.7-10.2 L = 89805-3) Protein, Total 6.1 g/dL 6.0-8.5 (test code = 2885-2) Albumin (test code 3.0 g/dL 4.0-5.0 L = 1751-7) Globulin, Total 3.1 g/dL 1.5-4.5 (test code = 69824-2) A/G Ratio (test 1.0 1.2-2.2 L code = 1759-0) Bilirubin, Total 0.6 mg/dL 0.0-1.2 (test code = 1975-2) Alkaline 130 IU/L 48-121 H Phosphatase (test Pl ease note code = 6768-6) reference int erval change
<b r/>Perf ormed by:
[facility] ([place])

AST (SGOT) (test 15 IU/L 0-40 code = 1920-8) ALT (SGPT) (test 18 IU/L 0-44 code = 1742-6) [facility] Description: Comp. Metabolic Panel (14)2020-08-16 01:19:00 Test Item Value Reference Range Interpretation Comments Glucose (test code 424 mg/dL 65-99 H = 2345-7) BUN (test code = 27 mg/dL 6-24 H 3094-0) Creatinine (test 1.88 mg/dL 0.76-1.27 H code = 2160-0) eGFR If NonAfricn 42 >59 L Am (test code = mL/min/1.73 42795-5) eGFR If Africn Am 48 >59 L [facility] currently (test code = mL/min/1[place]73 [place] [address]-3) compliance with the current recommendations of the [employer]. [facility] [place] will update re porting as new guidelin es are published from the NKF-ASN Task force.
<br/ >Perfor med by:
[facility] [place] [facility] ([place])

BUN/Creatinine 14 9-20 Ratio (test code = 3097-3) Sodium (test code = 138 mmol/L 577-495 7170-2) Potassium (test 4.2 mmol/L 3.5-5.2 code = 2823-3) Chloride (test code 98 mmol/L 96-106 = 5-0) Carbon Dioxide, 28 mmol/L 20-29 Total (test code = 2027-) Calcium (test code 8.4 mg/dL 8.7-10.2 L = 89611-0) Protein, Total 6.1 g/dL 6.0-8.5 (test code = 2885-2) Albumin (test code 3.0 g/dL 4.0-5.0 L = 1751-7) Globulin, Total 3.1 g/dL 1.5-4.5 (test code = 90584-6) A/G Ratio (test 1.0 1.2-2.2 L code = 1759-0) Bilirubin, Total 0.6 mg/dL 0.0-1.2 (test code = 1975-2) Alkaline 130 IU/L 48-121 H Phosphatase (test Pl ease note code = 6768-6) reference int erval change
<b r/>Perf ormed by:
[facility] [place] ([place])

AST (SGOT) (test 15 IU/L 0-40 code = 1920-8) ALT (SGPT) (test 18 IU/L 0-44 code = 1742-6) [facility] Description: Hemoglobin A1c/Hemoglobin.total in Blood 2020-08-16 00:35:00 Test Item Value Reference Range Interpretation Comments Hemoglobin A1c (test code 11.6 % 4.8-5.6 H = 4548-4) . Prediabetes: 5. 7 - 6.4 Diabete s: >6.4 Glycemi c control for niall lts with diabetes: <7.0

P erforme d by:
[facility] [place] ([place])

[facility] Description: Hemoglobin A1c/Hemoglobin.total in Blood 2020-08-16 00:35:00 Test Item Value Reference Range Interpretation Comments Hemoglobin A1c (test code 11.6 % 4.8-5.6 H = 4548-4) . Prediabetes: 5. 7 - 6.4 Diabete s: >6.4 Glycemi c control for niall lts with diabetes: <7.0

P erforme d by:
[facility] [place] ([place])

[facility] Description: Hemoglobin A1c/Hemoglobin.total in Blood 2020-08-16 00:35:00 Test Item Value Reference Range Interpretation Comments Hemoglobin A1c (test code 11.6 % 4.8-5.6 H = 4548-4) . Prediabetes: 5. 7 - 6.4 Diabete s: >6.4 Glycemi c control for niall lts with diabetes: <7.0

P erforme d by:
[facility] ([place])

[facility] Description: Hemoglobin A1c/Hemoglobin.total in Blood 2020-08-16 00:35:00 Test Item Value Reference Range Interpretation Comments Hemoglobin A1c (test code 11.6 % 4.8-5.6 H = 4548-4) . Prediabetes: 5. 7 - 6.4 Diabete s: >6.4 Glycemi c control for niall lts with diabetes: <7.0

P erforme d by:
[facility] ()

[facility] Description: Hemoglobin A1c/Hemoglobin.total in Blood 2020-08-16 00:35:00 Test Item Value Reference Range Interpretation Comments Hemoglobin A1c (test code 11.6 % 4.8-5.6 H = 4548-4) . Prediabetes: 5. 7 - 6.4 Diabete s: >6.4 Glycemi c control for niall lts with diabetes: <7.0

P erforme d by:
[facility] ()

[facility] Description: Hemoglobin A1c/Hemoglobin.total in Blood 2020-08-16 00:35:00 Test Item Value Reference Range Interpretation Comments Hemoglobin A1c (test code 11.6 % 4.8-5.6 H = 4548-4) . Prediabetes: 5. 7 - 6.4 Diabete s: >6.4 Glycemi c control for niall lts with diabetes: <7.0

P erforme d by:
[facility] ([place])

[facility] Description: Hemoglobin A1c/Hemoglobin.total in Blood 2020-08-16 00:35:00 Test Item Value Reference Range Interpretation Comments Hemoglobin A1c (test code 11.6 % 4.8-5.6 H = 4548-4) . Prediabetes: 5. 7 - 6.4 Diabete s: >6.4 Glycemi c control for niall lts with diabetes: <7.0

P erforme d by:
[facility] [place] ([place])

[facility] Description: Hemoglobin A1c/Hemoglobin.total in Blood 2020-08-16 00:35:00 Test Item Value Reference Range Interpretation Comments Hemoglobin A1c (test code 11.6 % 4.8-5.6 H = 4548-4) . Prediabetes: 5. 7 - 6.4 Diabete s: >6.4 Glycemi c control for niall lts with diabetes: <7.0

P erforme d by:
[facility] ([place])

[facility] Description: Hemoglobin A1c/Hemoglobin.total in Blood 2020-08-16 00:35:00 Test Item Value Reference Range Interpretation Comments Hemoglobin A1c (test code 11.6 % 4.8-5.6 H = 4548-4) . Prediabetes: 5. 7 - 6.4 Diabete s: >6.4 Glycemi c control for niall lts with diabetes: <7.0

P erforme d by:
[facility] [place] ([place])

[facility] Description: Hemoglobin A1c/Hemoglobin.total in Blood 2020-08-16 00:35:00 Test Item Value Reference Range Interpretation Comments Hemoglobin A1c (test code 11.6 % 4.8-5.6 H = 4548-4) . Prediabetes: 5. 7 - 6.4 Diabete s: >6.4 Glycemi c control for niall lts with diabetes: <7.0

P erforme d by:
[facility] [place] ([place])

[facility] Description: Hemoglobin A1c/Hemoglobin.total in Blood 2020-08-16 00:35:00 Test Item Value Reference Range Interpretation Comments Hemoglobin A1c (test code 11.6 % 4.8-5.6 H = 4548-4) . Prediabetes: 5. 7 - 6.4 Diabete s: >6.4 Glycemi c control for niall lts with diabetes: <7.0

P erforme d by:
[facility] [place] ([place])

[facility] Description: Hemoglobin A1c/Hemoglobin.total in Blood 2020-08-16 00:35:00 Test Item Value Reference Range Interpretation Comments Hemoglobin A1c (test code 11.6 % 4.8-5.6 H = 4548-4) . Prediabetes: 5. 7 - 6.4 Diabete s: >6.4 Glycemi c control for niall lts with diabetes: <7.0

P erforme d by:
[facility] [place] ([place])

[facility] and screen, [id number] 19:24:00 Test Item Value Reference Range Interpretation Comments ABO/RH AUTOMATED (BEAKER) (test A POSITIVE ECHO code = 2260) Ab Scrn (test code = 890-4) [facility] [id number] 19:24:00 Test Item Value Reference Range Interpretation Comments ABO/RH AUTOMATED (BEAKER) (test A POSITIVE ECHO code = 2260) Ab Scrn (test code = 890-4) [facility], acwiapcxv0930-59-30 19:24:00 Test Item Value Reference Range Interpretation Comments ABO/RH AUTOMATED (BEAKER) (test A POSITIVE ECHO code = 2260) Ab Scrn (test code = 890-4) [facility], [id number] 19:24:00 Test Item Value Reference Range Interpretation Comments ABO/RH AUTOMATED (BEAKER) (test A POSITIVE ECHO code = 2260) Ab Scrn (test code = 890-4) [facility], [id number] 19:24:00 Test Item Value Reference Range Interpretation Comments ABO/RH AUTOMATED (BEAKER) (test A POSITIVE ECHO code = 2260) Ab Scrn (test code = 890-4) [facility], [id number] 19:24:00 Test Item Value Reference Range Interpretation Comments ABO/RH AUTOMATED (BEAKER) (test A POSITIVE ECHO code = 2260) Ab Scrn (test code = 890-4) [facility] [id number] 19:24:00 Test Item Value Reference Range Interpretation Comments ABO/RH AUTOMATED (BEAKER) (test A POSITIVE ECHO code = 2260) Ab Scrn (test code = 890-4) [facility] [id number] 19:12:00 Test Item Value Reference Range Interpretation Comments Protein, Total (test 6.9 See_Comment [Autom ated code = 2885-2) message] The system which generated this result transmit josé luis reference range : 6.0 - 8.5 gm/dL . The reference range was not u sed to interpret th is result as normal/abnormal . Albumin (test code = 3.3 g/dL 3.5-5 L 04306-0) Alkaline Phosphatase 97 U/L 30-115 (test code = 6768-6) Total Bilirubin (test 0.9 mg/dL 0.1-1.2 code = 1975-2) Sodium (test code = 137 meq/L 775-267 2316-2) Potassium (test code 4.5 meq/L 3.6-5.5 = 2823-3) Chloride (test code = 100 meq/L 98-106 2075-0) CO2 (test code = 26 meq/L 20-29 8-9) BUN (test code = 51 mg/dL 10-26 H 3094-0) Creatinine (test code 1.87 mg/dL 0.5-1.2 H = 2160-0) Glucose (test code = 267 mg/dL 70-110 H 2345-7) Calcium (test code = 9.1 mg/dL 8.5-10.5 54764-0) AST (test code = 18 U/L 5-40 1920-8) ALT (test code = 23 U/L 5-50 1742-6) EGFR (test code = 39 mL/min/1.73 [place] [address]-9) NOT ACCURATE CREATININE CLEARANCE IN PREDICTING GLOMERULAR FILTRATION RATE . ESTIMATED GFR I S NOT APPLICABLE FOR DIALYSIS PATIEN TS. ISSA (test code = ISSA) Cake Icer ID - [id number] r ID - [id number] r ID - [id number] r ID - [id number] r ID - [id number] r ID - [id number] r ID - [id number] r ID - [id number] r ID - [id number] r ID - [id number] r ID - [id number] r ID - [id number] r ID - [id number] r ID - [id number] r ID - [id number] r ID - [id number] r ID - [id number] r ID - [id number] r ID - [id number] Lab Interpretation Abnormal (test code = 07867-3) [facility] [id number] 19:12:00 Test Item Value Reference Range Interpretation Comments Protein, Total (test 6.9 See_Comment [Autom ated code = 2885-2) message] The system which generated this result transmit josé luis reference range : 6.0 - 8.5 gm/dL . The reference range was not u sed to interpret th is result as normal/abnormal . Albumin (test code = 3.3 g/dL 3.5-5 L 79593-1) Alkaline Phosphatase 97 U/L 30-115 (test code = 6768-6) Total Bilirubin (test 0.9 mg/dL 0.1-1.2 code = 1974-2) Sodium (test code = 137 meq/L 723-489 0278-2) Potassium (test code 4.5 meq/L 3.6-5.5 = 2823-3) Chloride (test code = 100 meq/L 98-106 2074-0) CO2 (test code = 26 meq/L 20-29 2027-) BUN (test code = 51 mg/dL 10-26 H 3094-0) Creatinine (test code 1.87 mg/dL 0.5-1.2 H = 2160-0) Glucose (test code = 267 mg/dL 70-110 H 2345-7) Calcium (test code = 9.1 mg/dL 8.5-10.5 43340-0) AST (test code = 18 U/L 5-40 1920-8) ALT (test code = 23 U/L 5-50 1742-6) EGFR (test code = 39 mL/min/1.73 [place] [address]-9) NOT ACCURATE CREATININE CLEARANCE IN PREDICTING GLOMERULAR FILTRATION RATE . ESTIMATED GFR I S NOT APPLICABLE FOR DIALYSIS PATIEN TS. ISSA (test code = ISSA) [facility] ID - [id number] r ID - [id number] r ID - [id number] r ID - [id number] r ID - [id number] r ID - [id number] r ID - [id number] r ID - [id number] r ID - [id number] r ID - [id number] r ID - [id number] r ID - [id number] r ID - [id number] r ID - [id number] r ID - [id number] r ID - [id number] r ID - [id number] r ID - [id number] r ID - [id number] Lab Interpretation Abnormal (test code = 06060-2) [facility] [id number] 19:12:00 Test Item Value Reference Range Interpretation Comments Protein, Total (test 6.9 See_Comment [Autom ated code = 2885-2) message] The system which generated this result transmit josé luis reference range : 6.0 - 8.5 gm/dL . The reference range was not u sed to interpret th is result as normal/abnormal . Albumin (test code = 3.3 g/dL 3.5-5 L 96635-5) Alkaline Phosphatase 97 U/L 30-115 (test code = 6768-6) Total Bilirubin (test 0.9 mg/dL 0.1-1.2 code = 1974-2) Sodium (test code = 137 meq/L 239-178 7195-2) Potassium (test code 4.5 meq/L 3.6-5.5 = 2823-3) Chloride (test code = 100 meq/L 98-106 2075-0) CO2 (test code = 26 meq/L 20-29 2028-9) BUN (test code = 51 mg/dL 10-26 H 3094-0) Creatinine (test code 1.87 mg/dL 0.5-1.2 H = 2160-0) Glucose (test code = 267 mg/dL 70-110 H 2345-7) Calcium (test code = 9.1 mg/dL 8.5-10.5 38663-9) AST (test code = 18 U/L 5-40 1920-8) ALT (test code = 23 U/L 5-50 1742-6) EGFR (test code = 39 mL/min/1.73 [place] [address]-7) NOT ACCURATE CREATININE CLEARANCE IN PREDICTING GLOMERULAR FILTRATION RATE . ESTIMATED GFR I S NOT APPLICABLE FOR DIALYSIS PATIEN TS. ISSA (test code = ISSA) [facility] ID - [id number] r ID - [id number] r ID - [id number] r ID - [id number] r ID - [id number] r ID - [id number] r ID - [id number] r ID - [id number] r ID - [id number] r ID - [id number] r ID - [id number] r ID - [id number] r ID - [id number] r ID - [id number] r ID - [id number] r ID - [id number] r ID - [id number] r ID - [id number] r ID - [id number] Lab Interpretation Abnormal (test code = 61462-4) [facility] [id number] 19:12:00 Test Item Value Reference Range Interpretation Comments Protein, Total (test 6.9 See_Comment [Autom ated code = 2885-2) message] The system which generated this result transmit josé luis reference range : 6.0 - 8.5 gm/dL . The reference range was not u sed to interpret th is result as normal/abnormal . Albumin (test code = 3.3 g/dL 3.5-5 L 96364-1) Alkaline Phosphatase 97 U/L 30-115 (test code = 6768-6) Total Bilirubin (test 0.9 mg/dL 0.1-1.2 code = 1974-2) Sodium (test code = 137 meq/L 539-237 1832-2) Potassium (test code 4.5 meq/L 3.6-5.5 = 2823-3) Chloride (test code = 100 meq/L 98-106 2075-0) CO2 (test code = 26 meq/L 20-29 8-9) BUN (test code = 51 mg/dL 10-26 H 3094-0) Creatinine (test code 1.87 mg/dL 0.5-1.2 H = 2160-0) Glucose (test code = 267 mg/dL 70-110 H 2345-7) Calcium (test code = 9.1 mg/dL 8.5-10.5 63509-0) AST (test code = 18 U/L 5-40 1920-8) ALT (test code = 23 U/L 5-50 1742-6) EGFR (test code = 39 mL/min/1.73 [place] [address]-2) NOT ACCURATE CREATININE CLEARANCE IN PREDICTING GLOMERULAR FILTRATION RATE . ESTIMATED GFR I S NOT APPLICABLE FOR DIALYSIS PATIEN TS. ISSA (test code = ISSA) Cake Icer ID - [id number] r ID - [id number] r ID - [id number] r ID - [id number] r ID - [id number] r ID - [id number] r ID - [id number] r ID - [id number] r ID - [id number] r ID - [id number] r ID - [id number] r ID - [id number] r ID - [id number] r ID - [id number] r ID - [id number] r ID - [id number] r ID - [id number] r ID - [id number] r ID - [id number] Lab Interpretation Abnormal (test code = 94069-0) [facility] [id number] 19:12:00 Test Item Value Reference Range Interpretation Comments Protein, Total (test 6.9 See_Comment [Autom ated code = 2885-2) message] The system which generated this result transmit josé luis reference range : 6.0 - 8.5 gm/dL . The reference range was not u sed to interpret th is result as normal/abnormal . Albumin (test code = 3.3 g/dL 3.5-5.0 L 36880-3) Alkaline Phosphatase 97 U/L 30-115 (test code = 6768-6) Total Bilirubin (test 0.9 mg/dL 0.1-1.2 code = 1974-2) Sodium (test code = 137 meq/L 979-218 5732-2) Potassium (test code 4.5 meq/L 3.6-5.5 = 2823-3) Chloride (test code = 100 meq/L 98-106 5-0) CO2 (test code = 26 meq/L 20-29 2027-9) BUN (test code = 51 mg/dL 10-26 H 3094-0) Creatinine (test code 1.87 mg/dL 0.50-1.20 H = 2160-0) Glucose (test code = 267 mg/dL 70-110 H 2345-7) Calcium (test code = 9.1 mg/dL 8.5-10.5 68801-5) AST (test code = 18 U/L 5-40 1920-8) ALT (test code = 23 U/L 5-50 1742-6) EGFR (test code = 39 mL/min/1.73 [place] [address]-5) NOT ACCURATE CREATININE CLEARANCE IN PREDICTING GLOMERULAR FILTRATION RATE . ESTIMATED GFR I S NOT APPLICABLE FOR DIALYSIS PATIEN TS. ISSA (test code = ISSA) Cake Icer ID - [id number] r ID - [id number] r ID - [id number] r ID - [id number] r ID - [id number] r ID - [id number] r ID - [id number] r ID - [id number] r ID - [id number] r ID - [id number] r ID - [id number] r ID - [id number] r ID - [id number] r ID - [id number] r ID - [id number] r ID - [id number] r ID - [id number] r ID - [id number] r ID - [id number] Lab Interpretation Abnormal (test code = 60192-4) [facility] [id number] 19:12:00 Test Item Value Reference Range Interpretation Comments Protein, Total (test 6.9 See_Comment [Autom ated code = 2885-2) message] The system which generated this result transmit josé luis reference range : 6.0 - 8.5 gm/dL . The reference range was not u sed to interpret th is result as normal/abnormal . Albumin (test code = 3.3 g/dL 3.5-5.0 L 81138-2) Alkaline Phosphatase 97 U/L 30-115 (test code = 6768-6) Total Bilirubin (test 0.9 mg/dL 0.1-1.2 code = 1975-2) Sodium (test code = 137 meq/L 298-027 5060-2) Potassium (test code 4.5 meq/L 3.6-5.5 = 2823-3) Chloride (test code = 100 meq/L 98-106 2075-0) CO2 (test code = 26 meq/L 20-29 2028-9) BUN (test code = 51 mg/dL 10-26 H 3094-0) Creatinine (test code 1.87 mg/dL 0.50-1.20 H = 2160-0) Glucose (test code = 267 mg/dL 70-110 H 2345-7) Calcium (test code = 9.1 mg/dL 8.5-10.5 65922-5) AST (test code = 18 U/L 5-40 1920-8) ALT (test code = 23 U/L 5-50 1742-6) EGFR (test code = 39 mL/min/1.73 [place] [address]-8) NOT ACCURATE CREATININE CLEARANCE IN PREDICTING GLOMERULAR FILTRATION RATE . ESTIMATED GFR I S NOT APPLICABLE FOR DIALYSIS PATIEN TS. ISSA (test code = ISSA) Cake Icer ID - [id number] r ID - [id number] r ID - [id number] r ID - [id number] r ID - [id number] r ID - [id number] r ID - [id number] r ID - [id number] r ID - [id number] r ID - [id number] r ID - [id number] r ID - [id number] r ID - [id number] r ID - [id number] r ID - [id number] r ID - [id number] r ID - [id number] r ID - [id number] r ID - [id number] Lab Interpretation Abnormal (test code = 77894-8) [facility] [id number] 19:12:00 Test Item Value Reference Range Interpretation Comments Protein, Total (test 6.9 See_Comment [Autom ated code = 2885-2) message] The system which generated this result transmit josé luis reference range : 6.0 - 8.5 gm/dL . The reference range was not u sed to interpret th is result as normal/abnormal . Albumin (test code = 3.3 g/dL 3.5-5.0 L 95865-6) Alkaline Phosphatase 97 U/L 30-115 (test code = 6768-6) Total Bilirubin (test 0.9 mg/dL 0.1-1.2 code = 1974-2) Sodium (test code = 137 meq/L 416-729 0563-2) Potassium (test code 4.5 meq/L 3.6-5.5 = 2823-3) Chloride (test code = 100 meq/L 98-106 2074-0) CO2 (test code = 26 meq/L 20-29 2027-9) BUN (test code = 51 mg/dL 10-26 H 3094-0) Creatinine (test code 1.87 mg/dL 0.50-1.20 H = 2160-0) Glucose (test code = 267 mg/dL 70-110 H 2345-7) Calcium (test code = 9.1 mg/dL 8.5-10.5 90944-8) AST (test code = 18 U/L 5-40 1920-8) ALT (test code = 23 U/L 5-50 1742-6) EGFR (test code = 39 mL/min/1.73 sq [place] [address]-9) NOT ACCURATE CREATININE CLEARANCE IN PREDICTING GLOMERULAR FILTRATION RATE . ESTIMATED GFR I S NOT APPLICABLE FOR DIALYSIS PATIEN TS. [place] (test code = ISSA) Cake Icer ID - [id number] r ID - [id number] r ID - [id number] r ID - [id number] r ID - [id number] r ID - [id number] r ID - [id number] r ID - [id number] r ID - [id number] r ID - [id number] r ID - [id number] r ID - [id number] r ID - [id number] r ID - [id number] r ID - [id number] r ID - [id number] r ID - [id number] r ID - [id number] r ID - [id number] Lab Interpretation Abnormal (test code = 47461-5) [facility] [id number] 19:12:00 Test Item Value Reference Range Interpretation [...] S NOT APPLICABLE FOR DIALYSIS PATIEN TS. Cake Icer ID - [id number] ID - [id number] ID - [id number] ID - [id number] ID - [id number] ID - [id number] ID - [id number] ID - [id number] ID - [id number] ID - [id number] ID - [id number] ID - [id number] ID - [id number] ID - [id number] ID - [id number] ID - [id number] ID - [id number] ID - [id number] ID - [id number] acid, [id number] 19:05:00 Test Item Value Reference Range Interpretation Comments Lactate, Venous (test code 1.18 mmol/L 0.5-2 = 2872) ISSA (test code = ISSA) [facility] ID - [id number] ID - [id number] ID - [id number] ID - [id number] Lab Interpretation (test Normal code = 84149-4) [facility] [id number] 19:05:00 Test Item Value Reference Range Interpretation Comments Lactate, Venous (test code 1.18 mmol/L 0.5-2 = 2872) ISSA (test code = ISSA) [facility] I[facility] ID - [id number] ID - [id number] ID - [id number] ID - [id number] Lab Interpretation (test Normal code = 68802-6) [facility] [id number] 19:05:00 Test Item Value Reference Range Interpretation Comments Lactate, Venous (test code 1.18 mmol/L 0.5-2 = 2872) ISSA (test code = ISSA) [facility] ID - [id number] ID - [id number] ID - [id number] ID - [id number] Lab Interpretation (test Normal code = 47961-0) [facility] [id number] 19:05:00 Test Item Value Reference Range Interpretation Comments Lactate, Venous (test code 1.18 mmol/L 0.5-2 = 2872) ISSA (test code = ISSA) [facility] I[facility] ID - [id number] ID - [id number] ID - [id number] ID - [id number] Lab Interpretation (test Normal code = 97320-6) [facility] [id number] 19:05:00 Test Item Value Reference Range Interpretation Comments Lactate, Venous (test code 1.18 mmol/L 0.50-2.00 = 2872) ISSA (test code = ISSA) [employer] I[facility] ID - [id number] ID - [id number] ID - [id number] ID - [id number] Lab Interpretation (test Normal code = 31629-0) [facility] [id number] 19:05:00 Test Item Value Reference Range Interpretation Comments Lactate, Venous (test code 1.18 mmol/L 0.50-2.00 = 2872) ISSA (test code = ISSA) [facility] ID - [id number] ID - [id number] ID - [id number] ID - [id number] Lab Interpretation (test Normal code = 25330-8) [facility] [id number] 19:05:00 Test Item Value Reference Range Interpretation Comments Lactate, Venous (test code 1.18 mmol/L 0.50-2.00 = 2872) ISSA (test code = ISSA) [facility] ID - [id number] ID - [id number] ID - [id number] ID - [id number] Lab Interpretation (test Normal code = 57891-9) [facility] [id number] 19:05:00 Test Item Value Reference Range Interpretation Comments LACTATE BLOOD VENOUS (2) (BEAKER) 1.18 mmol/L 0.50-<2.00 (test code = 2872) [facility] ID - [id number] ID - [id number] ID - [id number] ID - [id number] 19:02:00 Test Item Value Reference Interpretation Comments [...] valves. Lab Interpretation Abnormal (test code = 46528-7) [id number] 19:02:00 Test Item Value Reference Interpretation Comments [...] valves. Lab Interpretation Abnormal (test code = 62396-4) [facility][id number] 19:02:00 Test Item Value Reference Interpretation Comments [...] valves. Lab Interpretation Abnormal (test code = 89003-6) [facility][id number] 19:02:00 Test Item Value Reference Interpretation Comments [...] valves. Lab Interpretation Abnormal (test code = 26733-9) [facility][id number] 19:02:00 Test Item Value Reference Interpretation Comments [...] valves. Lab Interpretation Abnormal (test code = 06724-4) [facility][id number] 19:02:00 Test Item Value Reference Interpretation Comments [...] valves. Lab Interpretation Abnormal (test code = 11880-3) [facility][id number] 19:02:00 Test Item Value Reference Interpretation Comments [...] valves. Lab Interpretation Abnormal (test code = 02051-3) [facility]PROT[facility]OM[facility]/[id number] 19:02:00 Test Item Value Reference Range Interpretation [...] code = 2801) CARDIAC CATH REPORT - [id number] 13:14:50Ordered by an unspecified provider. [facility] - [id number] 13:14:50 Ordered by an unspecified provider.[facility] - [id number] 13:14:50Ordered by an unspecified provider.[facility] C[facility] RE[facility] - [id number] 13:14:50Ordered by an unspecified provider.[facility] HospitalKappa / lambda light chains, [id number] 10:53:00 Test Item Value Reference Interpretation Comments Range [place] Lt Chain,Free 129.5 mg/L 3.3-19.4 H (test code = 00120-1) Lambda Lt 99.3 mg/L 5.7-26.3 H Chain,Free (test code = 23282-3) [place]/Lambda,Free 1.3 0.26-1.65 Free shantell a/lambda (test code [...] (test code = Performing Lab ISSA) EZ [facility] [address] [place] [address] Awais Cedeno MD, PhD, TOMY Lab Interpretation Abnormal (test code = 02870-9) [facility] lambda light chains, [id number] 10:53:00 Test Item Value Reference Interpretation Comments Range [place] Lt Chain,Free 129.5 mg/L 3.3-19.4 H (test code = 93966-2) Lambda Lt 99.3 mg/L 5.7-26.3 H Chain,Free (test code = 05050-4) [place]/Lambda,Free 1.3 0.26-1.65 Free sahntell a/lambda (test code = ratio in serum [...] (test code = Performing Lab ISSA) [facility] [address] [place] [address] Awais Cedeno MD, PhD, TOMY Lab Interpretation Abnormal (test code = 26909-4) [facility] lambda light chains, [id number] 10:53:00 Test Item Value Reference Interpretation Comments Range [place] Lt Chain,Free 129.5 mg/L 3.3-19.4 H (test code = 96039-1) Lambda Lt 99.3 mg/L 5.7-26.3 H Chain,Free (test code = 74656-4) [place]/Lambda,Free 1.3 0.26-1.65 Free shantell a/lambda (test code [...] = Performing Lab ISSA) [facility] [address] [place] [address] Awais Cedeno MD, PhD, TOMY Lab Interpretation Abnormal (test code = 22538-8) [facility] lambda light chains, [id number] 10:53:00 Test Item Value Reference Interpretation Comments Range [place] Lt Chain,Free 129.5 mg/L 3.3-19.4 H (test code = 37299-3) Lambda Lt 99.3 mg/L 5.7-26.3 H Chain,Free (test code = 40678-9) [place]/Lambda,Free 1.3 0.26-1.65 Free shantell a/lambda (test code [...] (test code = Performing Lab ISSA) [facility] [address] [place] [address] Awais Cedeno MD, PhD, TOMY Lab Interpretation Abnormal (test code = 77400-7) [facility] lambda light chains, [id number] 10:53:00 Test Item Value Reference Interpretation Comments Range [place] Lt Chain,Free 129.5 mg/L 3.3-19.4 H (test code = 87367-5) Lambda Lt 99.3 mg/L 5.7-26.3 H Chain,Free (test code = 51367-1) [place]/Lambda,Free 1.3 0.26-1.65 Free shantell a/lambda (test code [...] (test code = Performing Lab ISSA) [facility] [address] [place] [address] Awais Cedeno MD, PhD, TOMY Lab Interpretation Abnormal (test code = 07976-9) [facility] lambda light chains, [id number] 10:53:00 Test Item Value Reference Interpretation Comments Range [place] Lt Chain,Free 129.5 mg/L 3.3-19.4 H (test code = 21060-2) Lambda Lt 99.3 mg/L 5.7-26.3 H Chain,Free (test code = 19692-6) [place]/Lambda,Free 1.3 0.26-1.65 Free shantell a/lambda (test code [...] = Performing Lab ISSA) [facility] [address] [place] [address] Awais Cedeno MD, PhD, TOMY Lab Interpretation Abnormal (test code = 17903-7) [facility] lambda light chains, [id number] 10:53:00 Test Item Value Reference Interpretation Comments Range [place] Lt Chain,Free 129.5 mg/L 3.3-19.4 H (test code = 59194-0) Lambda Lt 99.3 mg/L 5.7-26.3 H Chain,Free (test code = 66861-8) [place]/Lambda,Free 1.3 0.26-1.65 Free shantell a/lambda (test code [...] (test code = Performing Lab ISSA) [facility] [address] [place] [address] Awais Cedeno MD, PhD, TOMY Lab Interpretation Abnormal (test code = 97910-6) [facility] HospitalPO[facility]UCOSE [id number] 08:14:00 Test Item Value Reference Range Interpretation Comments POC-GLUCOSE METER 107 mg/dL 70-110 : Notified RN/MD: TESTED (BEAKER) (test code AT [facility] [address] = [address]) [facility] [address]: Cake Icer/Techni cornelia ID = [id number] for Chelsie Garland BASIC METABOLIC [id number] 05:19:00 Test Item Value Reference Range Interpretation [...] S NOT APPLICABLE FOR DIALYSIS PATIEN TS. Cake Icer ID - ANSBERTOGOperator ID - ANSBERTOGOperator ID - ANSBERTOGOperator ID - ANSBERTOGOperatorID - ANSBERTOGOperator ID - ANSBERTOGOperator ID - ANSBERTOGOperator ID - ANSBERTOGOperator ID - ANSBERTOGOperator ID - ANSBERTOGOperator ID - ANSBERTOGOperator ID - ANSBERTOGOperator ID - ANSBERTOG CBC W/PLT COUNT & AUTO [id number] 05:05:00 Test Item Value Reference Range Interpretation [...] PERCENT (BEAKER) (test code = 2801) POCT-GLUCOSE [id number] 22:18:00 Test Item Value Reference Range Interpretation Comments POC-GLUCOSE METER 190 mg/dL 70-110 H : TESTED A T [facility] [address] (BEAKER) (test code [facility] [address], = 1538) [place] [id number]: Cake Icer/Techni cornelia ID = [id number] for Corb John etienne POCT-GLUCOSE [id number] 15:30:00 Test Item Value Reference Range Interpretation Comments POC-GLUCOSE METER 197 mg/dL 70-110 H : TESTED A T [facility] [address] (BEAKER) (test code [address], = 1538) [place] [address]: Cake Icer/Techni cornelia ID = [id number] for Buff ord, Jesi Protein electrophoresis, [id number] 14:18:00 Test Item Value Reference Range Interpretation Comments Albumin Fraction 2.5 See_Comment L [Automated (test code = 405) message] T [employer] system which generated this result transmitted reference range : 3.5 - 5.5 gm/dL . The reference range was not used to interpr et this result as normal/abnormal . Alpha 1 Fraction 0.3 See_Comment [Automated (test code = 389) message] [employer] system which generated this result transmitted reference range : 0.2 - 0.4 gm/dL . The reference range was not used to interpr et this result as normal/abnormal . Alpha 2 Fraction 0.8 See_Comment [Automated (test code = 390) message] T [employer] system which generated this result transmitted reference [...] 5.4 See_Comment L [Autom ated code = 4120) message] The system which generated this result transmitted reference range : 6.0 - 8.3 gm/dL . The reference range was not used to interpr et this result as normal/abnormal . ISSA (test code = ISSA) Cake Icer ID - PIAYA L Lab Interpretation Abnormal (test code = 16438-2) [facility]Protein electrophoresis, [id number] 14:18:00 Test Item Value Reference Range Interpretation Comments Albumin Fraction 2.5 See_Comment L [Automated (test code = 405) message] [employer] system which generated this result transmitted reference range : 3.5 - 5.5 gm/dL . The reference range was not used to interpr et this result as normal/abnormal . Alpha 1 Fraction 0.3 See_Comment [Automated (test code = 389) message] [employer] system which generated this result transmitted reference range : 0.2 - 0.4 gm/dL . The reference range was not used to interpr et this result as normal/abnormal . Alpha 2 Fraction 0.8 See_Comment [Automated (test code = 390) message] [employer] system which generated this result transmitted reference [...] normal/abnormal . ISSA (test code = ISSA) Cake Icer ID - PIAYA L Lab Interpretation Abnormal (test code = 17389-2) [facility]Protein electrophoresis, [id number] 14:18:00 Test Item Value Reference Range Interpretation Comments Albumin Fraction 2.5 See_Comment L [Automated (test code = 405) message] T system which generated this result transmitted reference range : 3.5 - 5.5 gm/dL . The reference range was not used to interpr et this result as normal/abnormal . Alpha 1 Fraction 0.3 See_Comment [Automated (test code = 389) message] T [employer] system which generated this result transmitted reference range : 0.2 - 0.4 gm/dL . The reference range was not used to interpr et this result as normal/abnormal . Alpha 2 Fraction 0.8 See_Comment [Automated (test code = 390) message] T [employer] system which generated this result transmitted reference [...] normal/abnormal . ISSA (test code = ISSA) Cake Icer ID - PIAYA L Lab Interpretation Abnormal (test code = 49356-8) [facility]Protein electrophoresis, [id number] 14:18:00 Test Item Value Reference Range Interpretation Comments Albumin Fraction 2.5 See_Comment L [Automated (test code = 405) message] [employer] system which generated this result transmitted reference range : 3.5 - 5.5 gm/dL . The reference range was not used to interpr et this result as normal/abnormal . Alpha 1 Fraction 0.3 See_Comment [Automated (test code = 389) message] [employer] system which generated this result transmitted reference range : 0.2 - 0.4 gm/dL . The reference range was not used to interpr et this result as normal/abnormal . Alpha 2 Fraction 0.8 See_Comment [Automated (test code = 390) message] [employer] system which generated this result transmitted reference [...] 5.4 See_Comment L [Autom ated code = 0774) message] The system which generated this result transmitted reference range : 6.0 - 8.3 gm/dL . The reference range was not used to interpr et this result as normal/abnormal . ISSA (test code = ISSA) Cake Icer ID - PIAYA L Lab Interpretation Abnormal (test code = 87554-1) [facility]Protein electrophoresis, [id number] 14:18:00 Test Item Value Reference Range Interpretation Comments Albumin Fraction 2.5 See_Comment L [Automated (test code = 405) message] [employer] system which generated this result transmitted reference range : 3.5 - 5.5 gm/dL . The reference range was not used to interpr et this result as normal/abnormal . Alpha 1 Fraction 0.3 See_Comment [Automated (test code = 389) message] [employer] system which generated this result transmitted reference range : 0.2 - 0.4 gm/dL . The reference range was not used to interpr et this result as normal/abnormal . Alpha 2 Fraction 0.8 See_Comment [Automated (test code = 390) message] [employer] system which generated this result transmitted reference [...] normal/abnormal . ISSA (test code = ISSA) Cake Icer ID - PIAYA L Lab Interpretation Abnormal (test code = 83955-5) [facility]Protein electrophoresis, [id number] 14:18:00 Test Item Value Reference Range Interpretation Comments Albumin Fraction 2.5 See_Comment L [Automated (test code = 405) message] T system which generated this result transmitted reference range : 3.5 - 5.5 gm/dL . The reference range was not used to interpr et this result as normal/abnormal . Alpha 1 Fraction 0.3 See_Comment [Automated (test code = 389) message] T [employer] system which generated this result transmitted reference range : 0.2 - 0.4 gm/dL . The reference range was not used to interpr et this result as normal/abnormal . Alpha 2 Fraction 0.8 See_Comment [Automated (test code = 390) message] T [employer] system which generated this result transmitted reference [...] normal/abnormal . ISSA (test code = ISSA) Cake Icer ID - PAVEL L Lab Interpretation Abnormal (test code = 65955-6) [facility]Protein electrophoresis, [id number] 14:18:00 Test Item Value Reference Range Interpretation Comments Albumin Fraction 2.5 See_Comment L [Automated (test code = 405) message] [employer] system which generated this result transmitted reference range : 3.5 - 5.5 gm/dL . The reference range was not used to interpr et this result as normal/abnormal . Alpha 1 Fraction 0.3 See_Comment [Automated (test code = 389) message] [employer] system which generated this result transmitted reference range : 0.2 - 0.4 gm/dL . The reference range was not used to interpr et this result as normal/abnormal . Alpha 2 Fraction 0.8 See_Comment [Automated (test code = 390) message] [employer] system which generated this result transmitted reference [...] 5.4 See_Comment L [Autom ated code = 2790) message] The system which generated this result transmitted reference range : 6.0 - 8.3 gm/dL . The reference range was not used to interpr et this result as normal/abnormal . ISSA (test code = ISSA) Cake Icer ID - PAVEL L Lab Interpretation Abnormal (test code = 65493-9) [facility] HospitalPROTEIN ELECTROPHORESIS, [id number] 14:18:00 Test Item Value Reference Range Interpretation [...] of acute inflammation. No monoclonal bands detected. [id number] Angela Howe MD (BEAKER) (test code = (electronic signature) 2616) PROTEIN TOTAL SERUM, 5.4 gm/dL 6.0-8.3 L SPEP (BEAKER) (test code = 2660) Cake Icer ID - PAVEL LANAEROBIC [id number] 14:06:00 Test Item Value Reference Range Interpretation Comments CULTURE (BEAKER) (test No anaerobes isolated code = 1095) ANAEROBIC [id number] 14:05:00 Test Item Value Reference Range Interpretation Comments CULTURE (BEAKER) (test No anaerobes isolated code = 1095) POCT-GLUCOSE [id number] 11:50:00 Test Item Value Reference Range Interpretation Comments POC-GLUCOSE METER 151 mg/dL 70-110 H : TESTED A T [facility] [address] (BEAKER) (test code [address], = 1538) [facility] [address]: Cake Icer/Techni cornelia ID = [id number] for Jesi Espinal ANG, NON-TUNNELED CATH/PICC >5 Y.O. 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 Okay to place [facility] : 1975 Sex: MFINAL REPORT Procedure: PICC line insertion. History: Need for long-term IV access. Business Development Director: Charlie Grigsby MD. Automobile Relocation Engineer: None Modality: Sonography and fluoroscopy. DOSE REDUCTION: [...] and fluoroscopic guided placement of a 5 [place] dual lumen PICC line via a right mid upper arm brachial vein approach with the catheter tip in distal SVC/RA, a satisfactory position for use. Thank you for the opportunity to assist in the care of your patient. Signed: Charlie Grigsby MDReport Verified Date/Time: 04/05/2020 11:32:55 Reading Location: [facility] Radiology Reading Room IR PICC line placement older than 5 [id number] 11:32:00 Interface, External Ris In - 04/05/2020 11:35 AM CSTFINAL REPORT Procedure: PICC line insertion. History: Need for long-term IV access. Business Development Director: Charlie Grigsby MD. Automobile Relocation Engineer: None Modality: Sonography and fluoroscopy. DOSE REDUCTION: [...] and fluoroscopic guided placement of a 5 [place] dual lumen PICC line via a right mid upper arm brachial vein approach with the catheter tip in distal SVC/RA, a satisfactory position for use. Thank you for the opportunity to assist in the care of your patient. Signed: Charlie Grigsby MDReport Verified Date/Time: 04/05/2020 11:32:55 Reading Location: [facility] older than 5 [id number] 11:32:00 Interface, External Ris In - 04/05/2020 11:35 AM CSTFINAL REPORT Procedure: PICC line insertion. History: Need for long-term IV access. Business Development Director: Charlie Grigsby MD. Automobile Relocation Engineer: None Modality: Sonography and fluoroscopy. DOSE REDUCTION: [...] and fluoroscopic guided placement of a 5 [place] dual lumen PICC line via a right mid upper arm brachial vein approach with the catheter tip in distal SVC/RA, a satisfactory position for use. Thank you for the opportunity to assist in the care of your patient. Signed: Charlie Grigsby MDReport Verified Date/Time: 04/05/2020 11:32:55 Reading Location: [facility]iology [facility] older than 5 [id number] 11:32:00 Interface, External Ris In - 04/05/2020 11:35 AM CSTFINAL REPORT Procedure: PICC line insertion. History: Need for long-term IV access. Business Development Director: Charlie Grigsby MD. Automobile Relocation Engineer: None Modality: Sonography and fluoroscopy. DOSE REDUCTION: [...] and fluoroscopic guided placement of a 5 [place] dual lumen PICC line via a right mid upper arm brachial vein approach with the catheter tip in distal SVC/RA, a satisfactory position for use. Thank you for the opportunity to assist in the care of your patient. Signed: Charlie Grigsby MDReport Verified Date/Time: 04/05/2020 11:32:55 Reading Location: [facility] Radiology [facility] placement older than 5 [id number] 11:32:00 Interface, External Ris In - 04/05/2020 11:35 AM CSTFINAL REPORT Procedure: PICC line insertion. History: Need for long-term IV access. Business Development Director: Charlie Grigsby MD. Automobile Relocation Engineer: None Modality: Sonography and fluoroscopy. DOSE REDUCTION: [...] and fluoroscopic guided placement of a 5 [place] dual lumen PICC line via a right mid upper arm brachial vein approach with the catheter tip in distal SVC/RA, a satisfactory position for use. Thank you for the opportunity to assist in the care of your patient. Signed: Charlie Grigsby MDReport Verified Date/Time: 04/05/2020 11:32:55 Reading Location: [facility] Radiology Reading [facility] [id number] 09:34:00 Test Item Value Reference Range Interpretation Comments POC-GLUCOSE METER 72 mg/dL 70-110 : TESTED A T [facility] (BEAKER) (test code = [address], [address]) [facility] [address]: Cake Icer/Techni cornelia ID = [id number] for Chencho Rina marie POCT-GLUCOSE [id number] 08:11:00 Test Item Value Reference Range Interpretation Comments POC-GLUCOSE METER 83 mg/dL 70-110 : TESTED A T [facility] [address] (BEAKER) (test code = [address], 1538) [facility] [address]: Cake Icer/Techni cornelia ID = [id number] for Jesi Espinal BASIC METABOLIC [id number] 06:57:00 Test Item Value Reference Range Interpretation [...] S NOT APPLICABLE FOR DIALYSIS PATIEN TS. Cake Icer ID - LITOOperator ID - LITOOperator ID - LITOOperator ID - LITOOperator ID - LITOOperator ID - LITOOperator ID - LITOOperator ID - LITOOperator ID - LITOOperator ID - LITOOperator ID - LITOOperator ID - LITOOperator ID - LITOCBC W/PLT COUNT & AUTO [id number] 05:55:00 Test Item Value Reference Range Interpretation [...] = No growth in 5 days 6463-4) [facility]ipuncture) 2020-04-05 01:01:00 Test Item Value Reference Range Interpretation Comments Result (test code = No growth in 5 days 6463-4) [facility] 2020-04-05 01:01:00 Test Item Value Reference Range Interpretation Comments Result (test code = No growth in 5 days 6463-4) [facility] Culture - Routine (Left Venipuncture) 2020-04-05 01:01:00 Test Item Value Reference Range Interpretation Comments Result (test code = No growth in 5 days 6463-4) [facility] Culture - Routine (Left Venipuncture) 2020-04-05 01:01:00 Test Item Value Reference Range Interpretation Comments Result (test code = No growth in 5 days 6463-4) [facility] Culture - Routine (Left Venipuncture) 2020-04-05 01:01:00 Test Item Value Reference Range Interpretation Comments Result (test code = No growth in 5 days 6463-4) [facility] Culture - Routine (Left Venipuncture) 2020-04-05 01:01:00 Test Item Value Reference Range Interpretation Comments Result (test code = No growth in 5 days 6463-4) [facility] [id number] 01:01:00 Test Item Value Reference Range Interpretation Comments CULTURE (BEAKER) (test No growth in 5 days code = 1095) BLOOD [id number] 01:01:00 Test Item Value Reference Range Interpretation Comments CULTURE (BEAKER) (test No growth in 5 days code = 1095) Vancomycin level, [id number] 00:11:00 Test Item Value Reference Range Interpretation Comments Vancomycin Tr (test code = 17.1 ug/mL 10-20 4092-3) ISSA (test code = ISSA) Cake Icer ID - ARCHIE Lab Interpretation (test Normal code = 14891-1) [facility]Vancom[facility], [id number] 00:11:00 Test Item Value Reference Range Interpretation Comments Vancomycin Tr (test code = 17.1 ug/mL 10-20 4092-3) ISSA (test code = ISSA) Cake Icer ID - ARCHIE Lab Interpretation (test Normal code = 64192-3) [facility], [id number] 00:11:00 Test Item Value Reference Range Interpretation Comments Vancomycin Tr (test code = 17.1 ug/mL 10-20 4092-3) ISSA (test code = ISSA) Cake Icer ID - ARCHIE Lab Interpretation (test Normal code = 91886-5) [facility], [id number] 00:11:00 Test Item Value Reference Range Interpretation Comments Vancomycin Tr (test code = 17.1 ug/mL 10-20 4092-3) ISSA (test code = ISSA) Cake Icer ID - ARCHIE Lab Interpretation (test Normal code = 22782-2) [facility], [id number] 00:11:00 Test Item Value Reference Range Interpretation Comments Vancomycin Tr (test code = 17.1 ug/mL 10.0-20.0 4092-3) ISSA (test code = ISSA) Cake Icer ID - ARCHIE Lab Interpretation (test Normal code = 55060-8) [facility], [id number] 00:11:00 Test Item Value Reference Range Interpretation Comments Vancomycin Tr (test code = 17.1 ug/mL 10.0-20.0 4092-3) ISSA (test code = ISSA) Cake Icer ID - ARCHIE Lab Interpretation (test Normal code = 65098-4) [facility], [id number] 00:11:00 Test Item Value Reference Range Interpretation Comments Vancomycin Tr (test code = 17.1 ug/mL 10.0-20.0 4092-3) ISSA (test code = ISSA) Cake Icer ID - ARCHIE Lab Interpretation (test Normal code = 95302-0) [facility] [id number] 00:11:00 Test Item Value Reference Range Interpretation Comments VANCOMYCIN TROUGH (BEAKER) (test 17.1 ug/mL 10.0-20.0 code = 522) Cake Icer ID - LITOPOCT-GLUCOSE [id number] 21:26:00 Test Item Value Reference Range Interpretation Comments POC-GLUCOSE METER 234 mg/dL 70-110 H : TESTED A T [facility] [address] (BEAKER) (test code [facility] [address], = 1538) [place] [address] 478: Cake Icer/Techni cornelia ID = [id number] for Tiff Roach POCT-GLUCOSE [id number] 15:54:00 Test Item Value Reference Range Interpretation Comments POC-GLUCOSE METER 200 mg/dL 70-110 H : TESTED A T [facility] [address] (BEAKER) (test code [address], = 1538) [place] [address] 478: Cake Icer/Techni cornelia ID = [id number] for Tiff Roach POCT-GLUCOSE [id number] 11:48:00 Test Item Value Reference Range Interpretation Comments POC-GLUCOSE METER 197 mg/dL 70-110 H : TESTED A T [facility] [address] (BEAKER) (test code [address], = 1538) [place] [address] 478: Cake Icer/Techni cornelia ID = [id number] for Tiff Roach Hepatitis panel, [id number] 10:58:00 Test Item Value Reference Range Interpretation Comments Hep A IgM (test code = Nonreactive Nonreactive 41576-7) Hep B C IgM (test code = Nonreactive Nonreactive 08407-3) Hepatitis C Ab (test Nonreactive Nonreactive code = 64444-3) HBsAg Screen (test code Nonreactive Nonreactive = 5195-3) ISSA (test code = ISSA) Cake Icer ID - BARRERA M Lab Interpretation (test Normal code = 63628-8) [facility] panel, [id number] 10:58:00 Test Item Value Reference Range Interpretation Comments Hep A IgM (test code = Nonreactive Nonreactive 02582-5) Hep B C IgM (test code = Nonreactive Nonreactive 34684-9) Hepatitis C Ab (test Nonreactive Nonreactive code = 00630-2) HBsAg Screen (test code Nonreactive Nonreactive = 5195-3) ISSA (test code = ISSA) Cake Icer ID - BARRERA M Lab Interpretation (test Normal code = 11588-0) [facility] panel, [id number] 10:58:00 Test Item Value Reference Range Interpretation Comments Hep A IgM (test code = Nonreactive Nonreactive 65213-6) Hep B C IgM (test code = Nonreactive Nonreactive 67195-7) Hepatitis C Ab (test Nonreactive Nonreactive code = 31388-9) HBsAg Screen (test code Nonreactive Nonreactive = 5195-3) ISSA (test code = ISSA) Cake Icer ID - BARRERA M Lab Interpretation (test Normal code = 62027-7) [facility] panel, [id number] 10:58:00 Test Item Value Reference Range Interpretation Comments Hep A IgM (test code = Nonreactive Nonreactive 02094-9) Hep B C IgM (test code = Nonreactive Nonreactive 26953-3) Hepatitis C Ab (test Nonreactive Nonreactive code = 74223-0) HBsAg Screen (test code Nonreactive Nonreactive = 5195-3) ISSA (test code = ISSA) Cake Icer ID - BARRERA M Lab Interpretation (test Normal code = 64238-4) [facility], [id number] 10:58:00 Test Item Value Reference Range Interpretation Comments Hep A IgM (test code = Nonreactive Nonreactive 01254-0) Hep B C IgM (test code = Nonreactive Nonreactive 48889-0) Hepatitis C Ab (test Nonreactive Nonreactive code = 41969-1) HBsAg Screen (test code Nonreactive Nonreactive = 5195-3) ISSA (test code = ISSA) Cake Icer ID - BARRERA M Lab Interpretation (test Normal code = 33356-8) [facility] panel, [id number] 10:58:00 Test Item Value Reference Range Interpretation Comments Hep A IgM (test code = Nonreactive Nonreactive 74837-2) Hep B C IgM (test code = Nonreactive Nonreactive 54836-9) Hepatitis C Ab (test Nonreactive Nonreactive code = 40882-4) HBsAg Screen (test code Nonreactive Nonreactive = 5195-3) ISSA (test code = ISSA) Cake Icer ID - BARRERA M Lab Interpretation (test Normal code = 40180-5) [facility] panel, [id number] 10:58:00 Test Item Value Reference Range Interpretation Comments Hep A IgM (test code = Nonreactive Nonreactive 90413-6) Hep B C IgM (test code = Nonreactive Nonreactive 44505-3) Hepatitis C Ab (test Nonreactive Nonreactive code = 50253-2) HBsAg Screen (test code Nonreactive Nonreactive = 5195-3) ISSA (test code = ISSA) Cake Icer ID - BARRERA M Lab Interpretation (test Normal code = 70089-9) [facility] [id number] 10:58:00 Test Item Value Reference Range Interpretation Comments HEPATITIS A IGM ANTIBODY (BEAKER) Nonreactive Nonreactive (test code = 498) HEPATITIS B CORE IGM ANTIBODY Nonreactive Nonreactive (BEAKER) (test code = 645) HEPATITIS C ANTIBODY (BEAKER) Nonreactive Nonreactive (test code = 367) HEPATITIS B SURFACE ANTIGEN (2) Nonreactive Nonreactive (BEAKER) (test code = 2585) Cake Icer ID - BARRERA MUREA NITROGEN, RANDOM [id number] 10:45:00 Test Item Value Reference Range Interpretation Comments UREA NITROGEN URINE (BEAKER) (test 528 mg/dL code = 538) Reference Range: No NormalsOperator ID - BARRERA MSURGICALLY OBTAINED CULTURE + GRAM [id number] 10:30:00 Test Item Value Reference Range Interpretation Comments CULTURE (BEAKER) A <1+ Coagula se negative (test code = Staphylococcus 1095) GRAM STAIN No WBCs RESULT (BEAKER) (test code = 1123) GRAM STAIN 2+ gram positive RESULT (BEAKER) cocci in pairs (test code = and clusters 180206) SURGICALLY OBTAINED CULTURE + GRAM [id number] 09:52:00 Test Item Value Reference Range Interpretation Comments CULTURE (BEAKER) A <1+ Viridan s (test code = Streptococcus 1095) GRAM STAIN No WBCs RESULT (BEAKER) (test code = 1123) GRAM STAIN No organisms seen RESULT (BEAKER) (test code = 498788) TISSUE [id number] 09:51:00Surgical Pathology Report Case: [id number] Authorizing Provider: Laura Nguyen DPM Collected: 04/01/2020 01:12 PM Ordering Location: [facility] Med Surg 5th Floor Received: 04/02/2020 08:38 AM Pathologist: Hilda Mack MD Specimen: Fo ot, Left, Bone biopsy 1st metatarsal, left BONE, FIRST LEFT METATARSAL, BIOPSY: - BONE WITH FOCAL REPARATIVE/REGENERATIVE CHANGES - NO ACUTE OSTEOMYELITIS ISSEEN Signing Pathologist Direct Phone Line: [phone] signed by Hilda Mack MD on 04/04/2020 at 9:51 [id number]; [id number] infectionBone biopsy first metatarsal, leftThespecimen is received in fixative and labeled with the patient's name, medical record number and designated as "foot left" and consists of a bone core biopsy measuring 1.5 cm in length and 0.2 cm in diameter. The specimen is entirely submitted into A1 and into decal solution. MG/pl Performed [facility], Department of Pathology, [address] [place], [place] [address], Cbfehq [facility], Department of Pathology, [address] [place] [address], [facility], [facility] of [facility], [address] [place] [address], SJRC-GLUCOSE METER 2020-04-04 08:22:00 Test Item Value Reference Range Interpretation Comments POC-GLUCOSE METER 167 mg/dL 70-110 H : TESTED A T [facility] [address] (BEAKER) (test code [facility] [address], = 15[address]) [place] [address]: Cake Icer/Techni cornelia ID = [id number] for Tiff Roach PTH, [id number] 07:24:00 Test Item Value Reference Range Interpretation Comments PARATHYROID HORMONE INTACT 365.7 pg/mL 15.0-90.0 H (BEAKER) (test code = 577) Cake Icer ID - [id number] METABOLIC [id number] 06:33:00 Test Item Value Reference Range Interpretation [...] S NOT APPLICABLE FOR DIALYSIS PATIEN TS. Cake Icer ID - [id number] ID - [id number] ID - [id number] ID - RETH56Odvanrpd ID - [id number] ID - VZCF36Cwxllwnp ID - GNIZ63Tugdttup ID - NPHH14Njjttufl ID - FTMW83Gwzzqgyv ID - GXLS77Nxxzzsef ID - LTAA25Sgycsutm ID - [id number] ID - [id number] W/PLT COUNT & AUTO [id number] 06:01:00 Test Item Value Reference Range Interpretation [...] PERCENT (BEAKER) (test code = 2801) POCT-GLUCOSE [id number] 21:43:00 Test Item Value Reference Range Interpretation Comments POC-GLUCOSE METER 242 mg/dL 70-110 H : TESTED A T [facility] [address] (BEAKER) (test code [facility] [address], = [address]) [facility] [place] [address]: Cake Icer/Techni cornelia ID = [id number] for Heidy Barrow HIV-1 Antigen with HIV-1/2 [id number] 18:37:00 Test Item Value Reference Range Interpretation Comments HIV-1 Antigen with HIV Nonreactive Nonreactive 1&2 Antibody (test code = 66654-1) ISSA (test code = ISSA) Cake Icer ID - [id number] Lab Interpretation (test Normal code = 89008-0) [facility]2 [id number] 18:37:00 Test Item Value Reference Range Interpretation Comments HIV-1 Antigen with HIV Nonreactive Nonreactive 1&2 Antibody (test code = 10559-5) ISSA (test code = ISSA) Cake Icer ID - [id number] Lab Interpretation (test Normal code = 09228-1) [facility] with HIV-1/2 [id number] 18:37:00 Test Item Value Reference Range Interpretation Comments HIV-1 Antigen with HIV Nonreactive Nonreactive 1&2 Antibody (test code = 13588-8) ISSA (test code = ISSA) Cake Icer ID - [id number] Lab Interpretation (test Normal code = 67418-6) [facility] Ant[facility] with HIV-1/2 [id number] 18:37:00 Test Item Value Reference Range Interpretation Comments HIV-1 Antigen with HIV Nonreactive Nonreactive 1&2 Antibody (test code = 73049-1) ISSA (test code = ISSA) Cake Icer ID - [id number] Lab Interpretation (test Normal code = 36938-9) [facility] with HIV-1/2 [id number] 18:37:00 Test Item Value Reference Range Interpretation Comments HIV-1 Antigen with HIV Nonreactive Nonreactive 1&2 Antibody (test code = 69701-9) ISSA (test code = ISSA) Cake Icer ID - [id number] Lab Interpretation (test Normal code = 41701-0) [facility] Ant[facility] with HIV-1/2 [id number] 18:37:00 Test Item Value Reference Range Interpretation Comments HIV-1 Antigen with HIV Nonreactive Nonreactive 1&2 Antibody (test code = 60852-7) ISSA (test code = ISSA) Cake Icer ID - [id number] Lab Interpretation (test Normal code = 26896-6) [facility] Ant[facility] with HIV-1/2 [id number] 18:37:00 Test Item Value Reference Range Interpretation Comments HIV-1 Antigen with HIV Nonreactive Nonreactive 1&2 Antibody (test code = 74428-6) ISSA (test code = ISSA) Cake Icer ID - [id number] Lab Interpretation (test Normal code = 79283-4) [facility] ANTIGEN WITH HIV-1/2 [id number] 18:37:00 Test Item Value Reference Range Interpretation Comments HIV-1 ANTIGEN WITH HIV 1\\T\\2 Nonreactive Nonreactive ANTIBODY (2) (BEAKER) (test code = 2586) Cake Icer ID - [id number] METABOLIC [id number] 17:38:00 Test Item Value Reference Range Interpretation [...] S NOT APPLICABLE FOR DIALYSIS PATIEN TS. Cake Icer ID - [id number] ID - [id number] ID - [id number] ID - [id number] ID - [id number] ID - [id number] ID - [id number] ID - [id number] ID - [id number] ID - [id number] ID - [id number] ID - [id number] ID - [id number] W/PLT COUNT & AUTO [id number] 17:24:00 Test Item Value Reference Range Interpretation [...] PERCENT (BEAKER) (test code = 2801) POCT-GLUCOSE [id number] 16:16:00 Test Item Value Reference Range Interpretation Comments POC-GLUCOSE METER 228 mg/dL 70-110 H : TESTED A T [facility] [address] (BEAKER) (test code [address], = 1538) [facility] [address]: Cake Icer/Techni cornelia ID = [id number] for Tiff Roach WOUND CULTURE + GRAM [id number] 14:46:00 Test Item Value Reference Interpretation Comments [...] S Sulfamethoxazole (test code = 47) CULTURE (AKER) (test PSEUDOMONAS A 1+ Ps eudomonas code [...] Tobramycin (test code S = 25) CULTURE (AKER) (test A 2+ Be ta-hemolytic code = 1095) streptococcus group B, by serological grouping GRAM STAIN RESULT No WBCs (BEAKER) (test code = 1123) GRAM STAIN RESULT 4+ Mixed geri (BEAKER) (test code = 967655) 3+ Skin floraPOCT-GLUCOSE [id number] 11:46:00 Test Item Value Reference Range Interpretation Comments POC-GLUCOSE METER 251 mg/dL 70-110 H : TESTED A T [facility] [address] (BEAKER) (test code [address], = 15[address]) [facility] [address]: Cake Icer/Techni cornelia ID = [id number] for Tiff Roach PROTEIN, RANDOM [id number] 11:18:00 Test Item Value Reference Range Interpretation Comments PROTEIN, URINE (BEAKER) (test code 214 mg/dL 0-14 H = 1569) Cake Icer ID - [id number] ID - [id number], RANDOM [id number] 11:02:00 Test Item Value Reference Range Interpretation Comments CREATININE URINE (BEAKER) (test 129.1 mg/dL code = 375) Reference Range: No NormalsOperator ID - [id number], RANDOM [id number] 11:00:00 Test Item Value Reference Range Interpretation Comments SODIUM URINE (BEAKER) (test code = 20 meq/L 243) Reference Range: No NormalsOperator ID - [id number] 11:00:00 Test Item Value Reference Range Interpretation Comments PHOSPHORUS (BEAKER) (test code = 5.0 mg/dL 2.5-4.5 H 604) Cake Icer ID - [id number] w/Vsewmjhovvl4784-80-90 10:57:00 Test Item Value Reference Range Interpretation Comments Color, UA (test code Yellow = 5778-6) Clarity, UA (test Slightly Cloudy code = 5767-9) Specific Rougon, UA 1.025 1.001-1.035 (test code = 5811-5) pH, UA (test code = 5.0 5.0-8.0 5803-2) Protein, UA (test 100 mg/dL Negative A code = 14301-5) Glucose, UA (test Negative Negative code = 365) Ketones, UA (test Negative Negative code = 2514-8) Bilirubin, UA (test Negative Negative code = 03143-3) Blood, UA (test code Small Negative A = 95499-9) Nitrite, UA (test Negative Negative code = 5802-4) Leukocytes, UA (test Negative Negative code = 5799-2) Urobilinogen, UA 0.2 mg/dL 0.2-1 (test code = 28406-9) Bacteria, UA (test Occasional code = 96966-9) RBC, UA (test code = 5-10 See_Comment [Autom ated 513-7) message] The system which generated this result transmitted reference range : /HPF. The reference range was not used to interpret this result as normal/abnormal . WBC, UA (test code = <5 See_Comment [Autom ated 00014-7) message] The system which generated this result transmitted reference range : /HPF. The reference range was not used to interpret this result as normal/abnormal . SQUAMOUS EPITHELIAL <5 See_Comment [Automa josé luis (test code = 09109-7) messag e] The system which generated this result transmitted reference range : /HPF. The reference range was not used to interpret this result as normal/abnormal . Specimen Source (test code = 2795) Lab Interpretation Abnormal (test code = 16187-7) [facility]/Gkrtyiidmxg7619-73-44 10:57:00 Test Item Value Reference Range Interpretation Comments Color, UA (test code Yellow = 5778-6) Clarity, UA (test Slightly Cloudy code = 5767-9) Specific Rougon, UA 1.025 1.001-1.035 (test code = 5811-5) pH, UA (test code = 5.0 5.0-8.0 5803-2) Protein, UA (test 100 mg/dL Negative A code = 47608-5) Glucose, UA (test Negative Negative code = 365) Ketones, UA (test Negative Negative code = 2514-8) Bilirubin, UA (test Negative Negative code = 74400-0) Blood, UA (test code Small Negative A = 52853-4) Nitrite, UA (test Negative Negative code = 5802-4) Leukocytes, UA (test Negative Negative code = 5799-2) Urobilinogen, UA 0.2 mg/dL 0.2-1 (test code = 07888-1) Bacteria, UA (test Occasional code = 13930-7) RBC, UA (test code = 5-10 See_Comment [Autom ated 799-7) message] The system which generated this result transmitted reference range : /HPF. The reference range was not used to interpret this result as normal/abnormal . WBC, UA (test code = <5 See_Comment [Autom ated 35736-6) message] The system which generated this result transmitted reference range : /HPF. The reference range was not used to interpret this result as normal/abnormal . SQUAMOUS EPITHELIAL <5 See_Comment [Automa josé luis (test code = 48262-8) messag e] The system which generated this result transmitted reference range : /HPF. The reference range was not used to interpret this result as normal/abnormal . Specimen Source (test code = 2795) Lab Interpretation Abnormal (test code = 70999-2) [facility]/Zxeyrtsfntl2760-76-29 10:57:00 Test Item Value Reference Range Interpretation Comments Color, UA (test code Yellow = 5778-6) Clarity, UA (test Slightly Cloudy code = 5767-9) Specific Rougon, UA 1.025 1.001-1.035 (test code = 5811-5) pH, UA (test code = 5.0 5.0-8.0 5803-2) Protein, UA (test 100 mg/dL Negative A code = 77299-7) Glucose, UA (test Negative Negative code = 365) Ketones, UA (test Negative Negative code = 2514-8) Bilirubin, UA (test Negative Negative code = 05692-4) Blood, UA (test code Small Negative A = 27380-3) Nitrite, UA (test Negative Negative code = 5802-4) Leukocytes, UA (test Negative Negative code = 5799-2) Urobilinogen, UA 0.2 mg/dL 0.2-1 (test code = 55959-6) Bacteria, UA (test Occasional code = 90756-4) RBC, UA (test code = 5-10 See_Comment [Autom ated 799-7) message] The system which generated this result transmitted reference range : /HPF. The reference range was not used to interpret this result as normal/abnormal . WBC, UA (test code = <5 See_Comment [Autom ated 42294-5) message] The system which generated this result transmitted reference range : /HPF. The reference range was not used to interpret this result as normal/abnormal . SQUAMOUS EPITHELIAL <5 See_Comment [Automa josé luis (test code = 19894-3) messag e] The system which generated this result transmitted reference range : /HPF. The reference range was not used to interpret this result as normal/abnormal . Specimen Source (test code = 2795) Lab Interpretation Abnormal (test code = 88491-1) [facility]/Waybsvzwiok7196-92-62 10:57:00 Test Item Value Reference Range Interpretation Comments Color, UA (test code Yellow = 5778-6) Clarity, UA (test Slightly Cloudy code = 5767-9) Specific Rougon, UA 1.025 1.001-1.035 (test code = 5811-5) pH, UA (test code = 5.0 5.0-8.0 5803-2) Protein, UA (test 100 mg/dL Negative A code = 74251-2) Glucose, UA (test Negative Negative code = 365) Ketones, UA (test Negative Negative code = 2514-8) Bilirubin, UA (test Negative Negative code = 26276-1) Blood, UA (test code Small Negative A = 80439-5) Nitrite, UA (test Negative Negative code = 5802-4) Leukocytes, UA (test Negative Negative code = 5799-2) Urobilinogen, UA 0.2 mg/dL 0.2-1 (test code = 56798-5) Bacteria, UA (test Occasional code = 81064-6) RBC, UA (test code = 5-10 See_Comment [Autom ated 799-7) message] The system which generated this result transmitted reference range : /HPF. The reference range was not used to interpret this result as normal/abnormal . WBC, UA (test code = <5 See_Comment [Autom ated 71350-7) message] The system which generated this result transmitted reference range : /HPF. The reference range was not used to interpret this result as normal/abnormal . SQUAMOUS EPITHELIAL <5 See_Comment [Automa josé luis (test code = 10133-3) messag e] The system which generated this result transmitted reference range : /HPF. The reference range was not used to interpret this result as normal/abnormal . Specimen Source (test code = 2795) Lab Interpretation Abnormal (test code = 97423-8) [facility]/Kgrabqktqia7127-77-98 10:57:00 Test Item Value Reference Range Interpretation Comments Color, UA (test code Yellow = 5778-6) Clarity, UA (test Slightly Cloudy code = 5767-9) Specific Rougon, UA 1.025 1.001-1.035 (test code = 5811-5) pH, UA (test code = 5.0 5.0-8.0 5803-2) Protein, UA (test 100 mg/dL Negative A code = 66184-1) Glucose, UA (test Negative Negative code = 365) Ketones, UA (test Negative Negative code = 2514-8) Bilirubin, UA (test Negative Negative code = 81186-5) Blood, UA (test code Small Negative A = 89382-5) Nitrite, UA (test Negative Negative code = 5802-4) Leukocytes, UA (test Negative Negative code = 5799-2) Urobilinogen, UA 0.2 mg/dL 0.2-1.0 (test code = 06719-1) Bacteria, UA (test Occasional code = 66608-5) RBC, UA (test code = 5-10 See_Comment [Autom ated 799-7) message] The system which generated this result transmitted reference range : /HPF. The reference range was not used to interpret this result as normal/abnormal . WBC, UA (test code = <5 See_Comment [Autom ated 27806-9) message] The system which generated this result transmitted reference range : /HPF. The reference range was not used to interpret this result as normal/abnormal . SQUAMOUS EPITHELIAL <5 See_Comment [Automa josé luis (test code = 88356-8) messag e] The system which generated this result transmitted reference range : /HPF. The reference range was not used to interpret this result as normal/abnormal . Specimen Source (test code = 2795) Lab Interpretation Abnormal (test code = 04582-8) [facility]/Xldgifruzgk9574-92-83 10:57:00 Test Item Value Reference Range Interpretation Comments Color, UA (test code Yellow = 5778-6) Clarity, UA (test Slightly Cloudy code = 5767-9) Specific Rougon, UA 1.025 1.001-1.035 (test code = 5811-5) pH, UA (test code = 5.0 5.0-8.0 5803-2) Protein, UA (test 100 mg/dL Negative A code = 74070-4) Glucose, UA (test Negative Negative code = 365) Ketones, UA (test Negative Negative code = 2514-8) Bilirubin, UA (test Negative Negative code = 82884-1) Blood, UA (test code Small Negative A = 03469-4) Nitrite, UA (test Negative Negative code = 5802-4) Leukocytes, UA (test Negative Negative code = 5799-2) Urobilinogen, UA 0.2 mg/dL 0.2-1.0 (test code = 44695-0) Bacteria, UA (test Occasional code = 98847-1) RBC, UA (test code = 5-10 See_Comment [Autom ated 799-7) message] The system which generated this result transmitted reference range : /HPF. The reference range was not used to interpret this result as normal/abnormal . WBC, UA (test code = <5 See_Comment [Autom ated 79817-7) message] The system which generated this result transmitted reference range : /HPF. The reference range was not used to interpret this result as normal/abnormal . SQUAMOUS EPITHELIAL <5 See_Comment [Automa josé luis (test code = 43825-4) messag e] The system which generated this result transmitted reference range : /HPF. The reference range was not used to interpret this result as normal/abnormal . Specimen Source (test code = 2795) Lab Interpretation Abnormal (test code = 18882-5) [facility]/Bcevifmjufj7557-77-35 10:57:00 Test Item Value Reference Range Interpretation Comments Color, UA (test code Yellow = 5778-6) Clarity, UA (test Slightly Cloudy code = 5767-9) Specific Rougon, UA 1.025 1.001-1.035 (test code = 5811-5) pH, UA (test code = 5.0 5.0-8.0 5803-2) Protein, UA (test 100 mg/dL Negative A code = 90542-9) Glucose, UA (test Negative Negative code = 365) Ketones, UA (test Negative Negative code = 2514-8) Bilirubin, UA (test Negative Negative code = 64697-8) Blood, UA (test code Small Negative A = 29573-0) Nitrite, UA (test Negative Negative code = 5802-4) Leukocytes, UA (test Negative Negative code = 5799-2) Urobilinogen, UA 0.2 mg/dL 0.2-1.0 (test code = 62165-9) Bacteria, UA (test Occasional code = 76616-6) RBC, UA (test code = 5-10 See_Comment [Autom ated 799-7) message] The system which generated this result transmitted reference range : /HPF. The reference range was not used to interpret this result as normal/abnormal . WBC, UA (test code = <5 See_Comment [Autom ated 15664-7) message] The system which generated this result transmitted reference range : /HPF. The reference range was not used to interpret this result as normal/abnormal . SQUAMOUS EPITHELIAL <5 See_Comment [Automa josé luis (test code = 89963-2) messag e] The system which generated this result transmitted reference range : /HPF. The reference range was not used to interpret this result as normal/abnormal . Specimen Source (test code = 2795) Lab Interpretation Abnormal (test code = 20086-9) [facility]/ [id number] 10:57:00 Test Item Value Reference Range Interpretation [...] pg/mL 0-100 H (test code = 700) Cake Icer ID - [id number]/S, RENAL, [id number] 08:56:00Reason for exam:- >[facility]N [facility] CKDCH[facility] : 1975 Sex: [...] MDReport Verified Date/Time: 04/03/2020 08:56:12 Reading Location: [facility] Radiology Reading Room CT, EXTREMITY, LOWER WITHOUT CONTRAST, [id number] 08:50:00Unlisted Reason for Exam - Click Yes and Enter Reason Below->YesL Foot woundUnlisted Reason for Exam->L Foot infection to r/o osteomyelitisPlease specify:->Foot [facility] : 1975 Sex: [...] Gonzales Verified Date/Time: 04/03/2020 08:50:03 Reading Location: [facility] B1 C013X Ortho Consult Reading Room CT lower extremity without IV contrast [id number] 08:50:00Interface, External Ris In - 04/03/2020 8:52 [...] Gonzales Verified Date/Time: 04/03/2020 08:50:03 Reading Location: [facility] C013X [facility] [id number] 08:50:00 Interface, External Ris In - 04/03/2020 [...] Gonzalesort Verified Date/Time: 04/03/2020 08:50:03 Reading Location: [address] [facility] [id number] 08:50:00Interface, External Ris In - 04/03/2020 8:52 [...] Gonzalesort Verified Date/Time: 04/03/2020 08:50:03 Reading Location: [address] [facility] [id number] 08:50:00Interface, External Ris In - 04/03/2020 8:52 [...] MDReport Verified Date/Time: 04/03/2020 08:50:03 Reading Location: [facility] C0X Ortho Consult Reading Room [facility] POCT-GLUCOSE [id number] 07:39:00 Test Item Value Reference Range Interpretation Comments POC-GLUCOSE METER 178 mg/dL 70-110 H : TESTED A T [facility] (BEAKER) (test code [facility] [address], = 1538) [facility] [address]: Cake Icer/Techni cornelia ID = [id number] for Tiff Roach BASIC METABOLIC [id number] 06:16:00 Test Item Value Reference Range Interpretation [...] S NOT APPLICABLE FOR DIALYSIS PATIEN TS. Cake Icer ID - LITOOperator ID - LITOOperator ID - LITOOperator ID - LITOOperator ID - LITOOperator ID - LITOOperator ID - LITOOperator ID - LITOOperator ID - LITOOperator ID - LITOOperator ID - LITOOperator ID - LITOOperator ID - [id number] (Hemogram only)2020-04-03 05:47:00 Test Item Value Reference Range Interpretation Comments WBC (test code = 6690-2) 8.9 See_Comment [A utomated message] The system [employer] generated this result transmitted ref erence range: 4.0 - 10 .0 K/L. The refe rence range was not u sed to interpret this result as normal/abnor mal. RBC (test code = 789-8) 3.59 See_Comment L [Au tomated message] The system [employer] generated this result transmitted ref erence range: 4.20 - 5 .80 M/L. The refe rence range was not u sed to interpret this result as normal/abnor mal. MCHC (test code = 786-4) 32.4 See_Comment L [A utomated message] The system [employer] generated this result transmitted ref erence range: [...] See_Comment [Aut omated message] 777-3) The system [employer] generated this result transmitted ref erence range: 150 - 43 0 K/CU MM. The referen ce range was not u sed to interpret this result as normal/abnor mal. MPV (test code = 11.7 fL 6-11.5 H 46874-3) nRBC (test code = 413) 0 See_Comment [Aut omated message] The system [employer] generated this result transmitted ref erence range: 0 - 0 /1 00 WBC. The refere nce range was not u sed to interpret this result as normal/abnor mal. Lab Interpretation (test Abnormal code = 73572-9) [facility] (Hemogram only)2020-04-03 05:47:00 Test Item Value Reference Range Interpretation Comments WBC (test code = 6690-2) 8.9 See_Comment [A utomated message] The system [employer] generated this result transmitted ref erence range: 4.0 - 10 .0 K/L. The refe rence range was not u sed to interpret this result as normal/abnor mal. RBC (test code = 789-8) 3.59 See_Comment L [Au tomated message] The system [employer] generated this result transmitted ref erence range: 4.20 - 5 .80 M/L. The refe rence range was not u sed to interpret this result as normal/abnor mal. MCHC (test code = 786-4) 32.4 See_Comment L [A utomated message] The system [employer] generated this result transmitted ref erence range: [...] See_Comment [Aut omated message] 777-3) The system [employer] generated this result transmitted ref erence range: 150 - 43 0 K/CU MM. The referen ce range was not u sed to interpret this result as normal/abnor mal. MPV (test code = 11.7 fL 6-11.5 H 50168-0) nRBC (test code = 413) 0 See_Comment [Aut omated message] The system [employer] generated this result transmitted ref erence range: 0 - 0 /1 00 WBC. The refere nce range was not u sed to interpret this result as normal/abnor mal. Lab Interpretation (test Abnormal code = 48286-7) [facility] (Hemogram only)2020-04-03 05:47:00 Test Item Value Reference Range Interpretation Comments WBC (test code = 6690-2) 8.9 See_Comment [A utomated message] The system [employer] generated this result transmitted ref erence range: 4.0 - 10 .0 K/L. The refe rence range was not u sed to interpret this result as normal/abnor mal. RBC (test code = 789-8) 3.59 See_Comment L [Au tomated message] The system [employer] generated this result transmitted ref erence range: 4.20 - 5 .80 M/L. The refe rence range was not u sed to interpret this result as normal/abnor mal. MCHC (test code = 786-4) 32.4 See_Comment L [A utomated message] The system [employer] generated this result transmitted ref erence range: [...] See_Comment [Aut omated message] 777-3) The system [employer] generated this result transmitted ref erence range: 150 - 43 0 K/CU MM. The referen ce range was not u sed to interpret this result as normal/abnor mal. MPV (test code = 11.7 fL 6-11.5 H 32700-7) nRBC (test code = 413) 0 See_Comment [Aut omated message] The system [employer] generated this result transmitted ref erence range: 0 - 0 /1 00 WBC. The refere nce range was not u sed to interpret this result as normal/abnor mal. Lab Interpretation (test Abnormal code = 99020-6) [facility] (Hemogram only)2020-04-03 05:47:00 Test Item Value Reference Range Interpretation Comments WBC (test code = 6690-2) 8.9 See_Comment [A utomated message] The system [employer] generated this result transmitted ref erence range: 4.0 - 10 .0 K/L. The refe rence range was not u sed to interpret this result as normal/abnor mal. RBC (test code = 789-8) 3.59 See_Comment L [Au tomated message] The system [facility] generated this result transmitted ref erence range: 4.20 - 5 .80 M/L. The refe rence range was not u sed to interpret this result as normal/abnor mal. MCHC (test code = 786-4) 32.4 See_Comment L [A utomated message] The system [employer] generated this result transmitted ref erence range: [...] See_Comment [Aut omated message] 777-3) The system [employer] generated this result transmitted ref erence range: 150 - 43 0 K/CU MM. The referen ce range was not u sed to interpret this result as normal/abnor mal. MPV (test code = 11.7 fL 6-11.5 H 70823-9) nRBC (test code = 413) 0 See_Comment [Aut omated message] The system [facility] generated this result transmitted ref erence range: 0 - 0 /1 00 WBC. The refere nce range was not u sed to interpret this result as normal/abnor mal. Lab Interpretation (test Abnormal code = 42121-8) [facility] (Hemogram only)2020-04-03 05:47:00 Test Item Value Reference Range Interpretation Comments WBC (test code = 6690-2) 8.9 See_Comment [A utomated message] The system [employer] generated this result transmitted ref erence range: 4.0 - 10 .0 K/L. The refe rence range was not u sed to interpret this result as normal/abnor mal. RBC (test code = 789-8) 3.59 See_Comment L [Au tomated message] The system [employer] generated this result transmitted ref erence range: 4.20 - 5 .80 M/L. The refe rence range was not u sed to interpret this result as normal/abnor mal. MCHC (test code = 786-4) 32.4 See_Comment L [A utomated message] The system [employer] generated this result transmitted ref erence range: [...] See_Comment [Aut omated message] 777-3) The system [employer] generated this result transmitted ref erence range: 150 - 43 0 K/CU MM. The referen ce range was not u sed to interpret this result as normal/abnor mal. MPV (test code = 11.7 fL 6.0-11.5 H 14663-0) nRBC (test code = 413) 0 See_Comment [Aut omated message] The system [employer] generated this result transmitted ref erence range: 0 - 0 /1 00 WBC. The refere nce range was not u sed to interpret this result as normal/abnor mal. Lab Interpretation (test Abnormal code = 08332-6) [facility] (Hemogram only)2020-04-03 05:47:00 Test Item Value Reference Range Interpretation Comments WBC (test code = 6690-2) 8.9 See_Comment [A utomated message] The system [employer] generated this result transmitted ref erence range: 4.0 - 10 .0 K/L. The refe rence range was not u sed to interpret this result as normal/abnor mal. RBC (test code = 789-8) 3.59 See_Comment L [Au tomated message] The system [employer] generated this result transmitted ref erence range: 4.20 - 5 .80 M/L. The refe rence range was not u sed to interpret this result as normal/abnor mal. MCHC (test code = 786-4) 32.4 See_Comment L [A utomated message] The system [employer] generated this result transmitted ref erence range: [...] See_Comment [Aut omated message] 777-3) The system [employer] generated this result transmitted ref erence range: 150 - 43 0 K/CU MM. The referen ce range was not u sed to interpret this result as normal/abnor mal. MPV (test code = 11.7 fL 6.0-11.5 H 35133-3) nRBC (test code = 413) 0 See_Comment [Aut omated message] The system [employer] generated this result transmitted ref erence range: 0 - 0 /1 00 WBC. The refere nce range was not u sed to interpret this result as normal/abnor mal. Lab Interpretation (test Abnormal code = 58024-5) [facility] (Hemogram only)2020-04-03 05:47:00 Test Item Value Reference Range Interpretation Comments WBC (test code = 6690-2) 8.9 See_Comment [A utomated message] The system [employer] generated this result transmitted ref erence range: 4.0 - 10 .0 K/L. The refe rence range was not u sed to interpret this result as normal/abnor mal. RBC (test code = 789-8) 3.59 See_Comment L [Au tomated message] The system [employer] generated this result transmitted ref erence range: 4.20 - 5 .80 M/L. The refe rence range was not u sed to interpret this result as normal/abnor mal. MCHC (test code = 786-4) 32.4 See_Comment L [A utomated message] The system [employer] generated this result transmitted ref erence range: [...] See_Comment [Aut omated message] 777-3) The system [employer] generated this result transmitted ref erence range: 150 - 43 0 K/CU MM. The referen ce range was not u sed to interpret this result as normal/abnor mal. MPV (test code = 11.7 fL 6.0-11.5 H 55319-3) nRBC (test code = 413) 0 See_Comment [Aut omated message] The system [employer] generated this result transmitted ref erence range: 0 - 0 /1 00 WBC. The refere nce range was not u sed to interpret this result as normal/abnor mal. Lab Interpretation (test Abnormal code = 45354-2) [facility] (HEMOGRAM ONLY)2020-04-03 05:47:00 Test Item Value Reference [...] (BEAKER) (test code = 413) VANCOMYCIN LEVEL, [id number] 22:37:00 Test Item Value Reference Range Interpretation Comments VANCOMYCIN TROUGH (BEAKER) (test 18.7 ug/mL 10.0-20.0 code = 522) Cake Icer ID - JUSTINPOCT-GLUCOSE [id number] 21:28:00 Test Item Value Reference Range Interpretation Comments POC-GLUCOSE METER 234 mg/dL 70-110 H : TESTED A T [address] (BEAKER) (test code [address], = 1538) [place] [id number]: Cake Icer/Techni cornelia ID = [id number] for Cbalberta li Heidy POCT-GLUCOSE [id number] 16:03:00 Test Item Value Reference Range Interpretation Comments POC-GLUCOSE METER 262 mg/dL 70-110 H : TESTED A T [address] (BEAKER) (test code [address], = 1538) [place] [id number]: Cake Icer/Techni cornelia ID = [id number] for Tanesha Espinale POCT-GLUCOSE [id number] 11:56:00 Test Item Value Reference Range Interpretation Comments POC-GLUCOSE METER 190 mg/dL 70-110 H : TESTED A T [address] (BEAKER) (test code [address], = 1538) [facility] [address]: Cake Icer/Techni cornelia ID = [id number] for Buff justyn, Jesi BASIC METABOLIC [id number] 06:58:00 Test Item Value Reference Range Interpretation [...] S NOT APPLICABLE FOR DIALYSIS PATIEN TS. Cake Icer ID - [id number] ID - [id number] ID - hfdk81Feauwbmo ID - tqch67Arfyraaj ID - mdrj15Nljfmgsk ID - fgrs94Lnwfnetl ID - aaeo05Eefouloz ID - ctwe27Khdavoza ID - xmpq12Gnjfxngc ID - fquw32Unwyuddq ID - lrfc66Qrddgtmr ID - zdxl75Lzylpqmv ID - [id number] (HEMOGRAM ONLY)2020-04-02 06:43:00 Test Item Value Reference [...] 0-0 (BEAKER) (test code = 413) POCT-GLUCOSE [id number] 16:21:00 Test Item Value Reference Range Interpretation Comments POC-GLUCOSE METER 262 mg/dL 70-110 H : TESTED A T [address] (BEAKER) [facility] [place] [address]: Cake Icer/Techni cornelia ID = [id number] for Buff ord, Jesi POCT-GLUCOSE [id number] 13:00:00 Test Item Value Reference Range Interpretation Comments POC-GLUCOSE METER 256 mg/dL 70-110 H : TESTED A T [address] (BEAKER) (test code [facility] [address], = [address]) [place] [address]: Cake Icer/Techni cornelia ID = [id number] for Palm er, Ealine POCT-GLUCOSE [id number] 11:49:00 Test Item Value Reference Range Interpretation Comments POC-GLUCOSE METER 255 mg/dL 70-110 H : TESTED A T [address] (BEAKER) (test code [facility] [address], = 15[address]) [place] [id number]: Cake Icer/Techni cornelia ID = [id number] for [place], Karina POCT-GLUCOSE [id number] 07:53:00 Test Item Value Reference Range Interpretation Comments POC-GLUCOSE METER 296 mg/dL 70-110 H : TESTED A T [address] (BEAKER) (test code [address], = 1538) [facility] [address]: Cake Icer/Techni cornelia ID = [id number] for Tanesha Espinale BASIC METABOLIC [id number] 06:06:00 Test Item Value Reference Range Interpretation [...] S NOT APPLICABLE FOR DIALYSIS PATIEN TS. Cake Icer ID - ANSBERTOGOperator ID - ANSBERTOGOperator ID - ANSBERTOGOperator ID - ANSBERTOGOperatorID - ANSBERTOGOperator ID - ANSBERTOGOperator ID - ANSBERTOGOperator ID - ANSBERTOGOperator ID - ANSBERTOGOperator ID - ANSBERTOGOperator ID - ANSBERTOGOperator ID - ANSBERTOGOperator ID - ANSBERTOG POCT-GLUCOSE [id number] 20:54:00 Test Item Value Reference Range Interpretation Comments POC-GLUCOSE METER 252 mg/dL 70-110 H : TESTED A T [address] (BEAKER) (test code [address], = 1538) [place] [address]: Cake Icer/Techni cornelia ID = [id number] for Aanu siem, felicity POCT-GLUCOSE [id number] 15:59:00 Test Item Value Reference Range Interpretation Comments POC-GLUCOSE METER 335 mg/dL 70-110 H : TESTED A T [address] (BEAKER) (test code [address], = 1538) [facility] [address]: Cake Icer/Techni cornelia ID = [id number] for Tiff Roach POCT-GLUCOSE [id number] 15:24:00 Test Item Value Reference Range Interpretation Comments POC-GLUCOSE METER 356 mg/dL 70-110 H : TESTED A T [address] (BEAKER) (test code [address], = 1538) [place] [address]: Cake Icer/Techni cornelia ID = [id number] for Tiff Roach POCT-GLUCOSE [id number] 07:46:00 Test Item Value Reference Range Interpretation Comments POC-GLUCOSE METER 281 mg/dL 70-110 H : TESTED A T [address] (BEAKER) (test code [address], = 1538) [place] [address]: Cake Icer/Techni cornelia ID = [id number] for Tiff Roach Hemoglobin [id number] 06:09:00 Test Item Value Reference Range Interpretation Comments Hemoglobin A1C (test code 12.3 % 4.3-6.1 H = 4548-4) ISSA (test code = ISSA) Cake Icer ID - JBERN Lab Interpretation (test Abnormal code = 55875-7) [id number]00 Test Item Value Reference Range Interpretation Comments Hemoglobin A1C (test code 12.3 % 4.3-6.1 H = 4548-4) ISSA (test code = ISSA) Cake Icer ID - JBERN Lab Interpretation (test Abnormal code = 12590-0) [facility] [id number] 06:09:00 Test Item Value Reference Range Interpretation Comments Hemoglobin A1C (test code 12.3 % 4.3-6.1 H = 4548-4) ISSA (test code = ISSA) Cake Icer ID - JBERN Lab Interpretation (test Abnormal code = 50465-1) [facility] [id number] 06:09:00 Test Item Value Reference Range Interpretation Comments Hemoglobin A1C (test code 12.3 % 4.3-6.1 H = 4548-4) ISSA (test code = ISSA) Cake Icer ID - JBERN Lab Interpretation (test Abnormal code = 88315-4) [facility] [id number] 06:09:00 Test Item Value Reference Range Interpretation Comments Hemoglobin A1C (test code 12.3 % 4.3-6.1 H = 4548-4) ISSA (test code = ISSA) Cake Icer ID - JBERN Lab Interpretation (test Abnormal code = 89747-8) [facility] [id number] 06:09:00 Test Item Value Reference Range Interpretation Comments Hemoglobin A1C (test code 12.3 % 4.3-6.1 H = 4548-4) ISSA (test code = ISSA) Cake Icer ID - JBERN Lab Interpretation (test Abnormal code = 63896-5) [facility] [id number] 06:09:00 Test Item Value Reference Range Interpretation Comments Hemoglobin A1C (test code 12.3 % 4.3-6.1 H = 4548-4) ISSA (test code = ISSA) Cake Icer ID - JBERN Lab Interpretation (test Abnormal code = 26326-6) [facility] [id number] 06:09:00 Test Item Value Reference Range Interpretation Comments HEMOGLOBIN A1C (BEAKER) (test code = 12.3 % 4.3-6.1 H 368) Cake Icer ID - JBERNBASIC METABOLIC [id number] 06:04:00 Test Item Value Reference Range Interpretation [...] S NOT APPLICABLE FOR DIALYSIS PATIEN TS. Cake Icer ID - ANSBERTOGOperator ID - ANSBERTOGOperator ID - ANSBERTOGOperator ID - ANSBERTOGOperatorID - ANSBERTOGOperator ID - ANSBERTOGOperator ID - ANSBERTOGOperator ID - ANSBERTOGOperator ID - ANSBERTOGOperator ID - ANSBERTOGOperator ID - ANSBERTOGOperator ID - ANSBERTOGOperator ID - ANSBERTOG CBC W/PLT COUNT & AUTO [id number] 05:38:00 Test Item Value Reference Range Interpretation [...] = 2801) CBC W/PLT COUNT & AUTO [id number] 22:16:00 Test Item Value Reference Range Interpretation [...] PERCENT (BEAKER) (test code = 2801) POCT-GLUCOSE [id number] 22:12:00 Test Item Value Reference Range Interpretation Comments POC-GLUCOSE METER 396 mg/dL 70-110 H : TESTED A T [address] (BEAKER) (test code [address], = 1538) [facility] [address]: Cake Icer/Techni cornelia ID = [id number] for Aanu siem, felicity RAD, FOOT, MIN 3 VIEWS, [id number] 21:39:00Reason for exam:->L foot ulcer.[facility]ENTER[facility] : 1975 Sex: MFINAL [...] MDReport Verified Date/Time: 03/30/2020 21:39:00 BASI METABOLIC [id number] 21:34:00 Test Item Value Reference Range Interpretation [...] S NOT APPLICABLE FOR DIALYSIS PATIEN TS. Cake Icer ID - JBERNOperator ID - JBERNOperator ID - JBERNOperator ID - JBERNOperator ID - JBERNOperator ID - JBERNOperator ID - JBERNOperator ID - JBERNOperator ID - JBERNOperator ID - JBERNOperator ID- JBERNOperator ID - JBERNOperator ID - JBERNSARS-COV2/RT-PCR ([facility])2020-03-30 21:04:00 Test Item Value Reference Range Interpretation Comments SARS-COV2/RT-PCR Negative Not Detected, (test code = 6055205) Negative, See external report for linked test SARS-COV-2 PERFORMING Perfor med @ [facility] (test code = 4898687) BLOOD [id number] 04:00:00 Test Item Value Reference Range Interpretation Comments CULTURE (BEAKER) (test No growth in 5 days code = 1095) BLOOD [id number] 04:00:00 Test Item Value Reference Range Interpretation Comments CULTURE (BEAKER) (test No growth in 5 days code = 1095) BASIC METABOLIC [id number] 01:36:00 Test Item Value Reference Range Interpretation [...] S NOT APPLICABLE FOR DIALYSIS PATIEN TS. Cake Icer ID - orju43Ovzxenzp ID - ocdz71Cgsyssaj ID - hwaj58Thxykgus ID - lomo34Sxxncfyl ID - vylr66Zzjuvwwo ID - rokr01Mdvobgpq ID - zvys98Ogjowssl ID - czov90Jjpkwdve ID - fjkw72Jdbvngpp ID - bbdo91Lrwewgii ID - kzps35Uclnsuec ID - oddr39Qjrcknsx ID - rxgn01H-Pvzyivrm [id number] 01:34:00 Test Item Value Reference Range Interpretation Comments CRP (test code = 676) 0.66 mg/dL 0-0.5 H ISSA (test code = ISSA) Cake Icer ID - [id number] Lab Interpretation (test Abnormal code = 07229-6) [facility] [id number] 01:34:00 Test Item Value Reference Range Interpretation Comments CRP (test code = 676) 0.66 mg/dL 0-0.5 H ISSA (test code = ISSA) Cake Icer ID - [id number] Lab Interpretation (test Abnormal code = 07536-3) [facility] [id number] 01:34:00 Test Item Value Reference Range Interpretation Comments CRP (test code = 676) 0.66 mg/dL 0-0.5 H ISSA (test code = ISSA) Cake Icer ID - [id number] Lab Interpretation (test Abnormal code = 65195-6) [facility] [id number] 01:34:00 Test Item Value Reference Range Interpretation Comments CRP (test code = 676) 0.66 mg/dL 0-0.5 H ISSA (test code = ISSA) Cake Icer ID - [id number] Lab Interpretation (test Abnormal code = 81331-6) [facility] [id number] 01:34:00 Test Item Value Reference Range Interpretation Comments CRP (test code = 676) 0.66 mg/dL 0.00-0.50 H ISSA (test code = ISSA) Cake Icer ID - [id number] Lab Interpretation (test Abnormal code = 07491-1) [facility] [id number] 01:34:00 Test Item Value Reference Range Interpretation Comments CRP (test code = 676) 0.66 mg/dL 0.00-0.50 H ISSA (test code = ISSA) Cake Icer ID - [id number] Lab Interpretation (test Abnormal code = 65010-2) [facility] [id number] 01:34:00 Test Item Value Reference Range Interpretation Comments CRP (test code = 676) 0.66 mg/dL 0.00-0.50 H ISSA (test code = ISSA) Cake Icer ID - [id number] Lab Interpretation (test Abnormal code = 41091-7) [facility] [id number] 01:34:00 Test Item Value Reference Range Interpretation Comments C-REACTIVE PROTEIN (BEAKER) (test 0.66 mg/dL 0.00-0.50 H code = 676) Cake Icer ID - [id number] ACID, [id number] 01:33:00 Test Item Value Reference Range Interpretation Comments LACTATE BLOOD VENOUS (2) (BEAKER) 1.75 mmol/L 0.50-<2.00 (test code = 2872) Cake Icer ID - [id number] ID - lzxp88Jioaachj ID - ihry68Vnhzyjzg ID - zdma02 CBC W/PLT COUNT & AUTO [id number] 01:21:00 Test Item Value Reference Range Interpretation [...] = 2801) RAD, FOOT, MIN 3 VIEWS, [id number] 00:51:00Reason for exam:->[facility] 1975 Sex: MFINAL REPORT TECHNIQUE: Frontal, oblique, and lateral views of theleft foot. INDICATION: ABSCESS. COMPARISON: None. IMPRESSION:There is soft tissue swelling with superficial skin defect compatible with ulceration along the plantar tissues of the distal midfoot. No osseous erosion. No acute fracture or dislocation. Joint spaces are preserved. Peripheral vascular calcifications are evident. Signed: Jazmin Freeman Verified Date/Time: 03/20/2020 00:51:45 Panel Description: Hemoglobin A1c/Hemoglobin.total in [id number] 11:40:00 Test Item Value Reference Range Interpretation Comments Hemoglobin A1c (test code 13.1 % 4.8-5.6 H = 4548-4) . Prediabetes: 5. 7 - 6.4 Diabete s: >6.4 Glycemi c control for niall lts with diabetes: <7.0

P erforme d by:
[facility] (HD)

[facility] Description: Hemoglobin A1c/Hemoglobin.total in Blood 2020-03-07 11:40:00 Test Item Value Reference Range Interpretation Comments Hemoglobin A1c (test code 13.1 % 4.8-5.6 H = 4548-4) . Prediabetes: 5. 7 - 6.4 Diabete s: >6.4 Glycemi c control for niall lts with diabetes: <7.0

P erforme d by:
[facility] (HD)

[facility] Description: Hemoglobin A1c/Hemoglobin.total in Blood 2020-03-07 11:40:00 Test Item Value Reference Range Interpretation Comments Hemoglobin A1c (test code 13.1 % 4.8-5.6 H = 4548-4) . Prediabetes: 5. 7 - 6.4 Diabete s: >6.4 Glycemi c control for niall lts with diabetes: <7.0

P erforme d by:
[facility] (HD)

[facility] Description: Hemoglobin A1c/Hemoglobin.total in Blood 2020-03-07 11:40:00 Test Item Value Reference Range Interpretation Comments Hemoglobin A1c (test code 13.1 % 4.8-5.6 H = 4548-4) . Prediabetes: 5. 7 - 6.4 Diabete s: >6.4 Glycemi c control for niall lts with diabetes: <7.0

P erforme d by:
[facility] [place] ([place])

[facility] Description: Hemoglobin A1c/Hemoglobin.total in Blood 2020-03-07 11:40:00 Test Item Value Reference Range Interpretation Comments Hemoglobin A1c (test code 13.1 % 4.8-5.6 H = 4548-4) . Prediabetes: 5. 7 - 6.4 Diabete s: >6.4 Glycemi c control for niall lts with diabetes: <7.0

P erforme d by:
[facility] (HD)

[facility] Description: Hemoglobin A1c/Hemoglobin.total in Blood 2020-03-07 11:40:00 Test Item Value Reference Range Interpretation Comments Hemoglobin A1c (test code 13.1 % 4.8-5.6 H = 4548-4) . Prediabetes: 5. 7 - 6.4 Diabete s: >6.4 Glycemi c control for niall lts with diabetes: <7.0

P erforme d by:
[facility] (HD)

[facility] Description: Hemoglobin A1c/Hemoglobin.total in Blood 2020-03-07 11:40:00 Test Item Value Reference Range Interpretation Comments Hemoglobin A1c (test code 13.1 % 4.8-5.6 H = 4548-4) . Prediabetes: 5. 7 - 6.4 Diabete s: >6.4 Glycemi c control for niall lts with diabetes: <7.0

P erforme d by:
[facility] (HD)

[facility] Description: Hemoglobin A1c/Hemoglobin.total in Blood 2020-03-07 11:40:00 Test Item Value Reference Range Interpretation Comments Hemoglobin A1c (test code 13.1 % 4.8-5.6 H = 4548-4) . Prediabetes: 5. 7 - 6.4 Diabete s: >6.4 Glycemi c control for niall lts with diabetes: <7.0

P erforme d by:
[facility] [place] ([place])

[facility] Description: Hemoglobin A1c/Hemoglobin.total in Blood 2020-03-07 11:40:00 Test Item Value Reference Range Interpretation Comments Hemoglobin A1c (test code 13.1 % 4.8-5.6 H = 4548-4) . Prediabetes: 5. 7 - 6.4 Diabete s: >6.4 Glycemi c control for niall lts with diabetes: <7.0

P erforme d by:
[facility] ([place])

[facility] Description: Hemoglobin A1c/Hemoglobin.total in Blood 2020-03-07 11:40:00 Test Item Value Reference Range Interpretation Comments Hemoglobin A1c (test code 13.1 % 4.8-5.6 H = 4548-4) . Prediabetes: 5. 7 - 6.4 Diabete s: >6.4 Glycemi c control for niall lts with diabetes: <7.0

P erforme d by:
[facility] ([place])

[facility] Description: Hemoglobin A1c/Hemoglobin.total in Blood 2020-03-07 11:40:00 Test Item Value Reference Range Interpretation Comments Hemoglobin A1c (test code 13.1 % 4.8-5.6 H = 4548-4) . Prediabetes: 5. 7 - 6.4 Diabete s: >6.4 Glycemi c control for niall lts with diabetes: <7.0

P erforme d by:
[facility] ([place])

[facility] Description: Hemoglobin A1c/Hemoglobin.total in Blood 2020-03-07 11:40:00 Test Item Value Reference Range Interpretation Comments Hemoglobin A1c (test code 13.1 % 4.8-5.6 H = 4548-4) . Prediabetes: 5. 7 - 6.4 Diabete s: >6.4 Glycemi c control for niall lts with diabetes: <7.0

P erforme d by:
[facility] [place] ([place])

[facility] Description: Hemoglobin A1c/Hemoglobin.total in Blood 2020-03-07 11:40:00 Test Item Value Reference Range Interpretation Comments Hemoglobin A1c (test code 13.1 % 4.8-5.6 H = 4548-4) . Prediabetes: 5. 7 - 6.4 Diabete s: >6.4 Glycemi c control for niall lts with diabetes: <7.0

P erforme d by:
[facility] ([place])

[facility] Description: Hemoglobin A1c/Hemoglobin.total in Blood 2020-03-07 11:40:00 Test Item Value Reference Range Interpretation Comments Hemoglobin A1c (test code 13.1 % 4.8-5.6 H = 4548-4) . Prediabetes: 5. 7 - 6.4 Diabete s: >6.4 Glycemi c control for niall lts with diabetes: <7.0

P erforme d by:
[facility] ([place])

[facility] Description: Hemoglobin A1c/Hemoglobin.total in Blood 2020-03-07 11:40:00 Test Item Value Reference Range Interpretation Comments Hemoglobin A1c (test code 13.1 % 4.8-5.6 H = 4548-4) . Prediabetes: 5. 7 - 6.4 Diabete s: >6.4 Glycemi c control for niall lts with diabetes: <7.0

P erforme d by:
[facility] ([place])

[facility] Description: Hemoglobin A1c/Hemoglobin.total in Blood 2020-03-07 11:40:00 Test Item Value Reference Range Interpretation Comments Hemoglobin A1c (test code 13.1 % 4.8-5.6 H = 4548-4) . Prediabetes: 5. 7 - 6.4 Diabete s: >6.4 Glycemi c control for niall lts with diabetes: <7.0

P erforme d by:
[facility] ([place])

[facility] Description: Hemoglobin A1c/Hemoglobin.total in Blood 2020-03-07 11:40:00 Test Item Value Reference Range Interpretation Comments Hemoglobin A1c (test code 13.1 % 4.8-5.6 H = 4548-4) . Prediabetes: 5. 7 - 6.4 Diabete s: >6.4 Glycemi c control for niall lts with diabetes: <7.0

P erforme d by:
[facility] ([place])

[facility] Description: Hemoglobin A1c/Hemoglobin.total in Blood 2020-03-07 11:40:00 Test Item Value Reference Range Interpretation Comments Hemoglobin A1c (test code 13.1 % 4.8-5.6 H = 4548-4) . Prediabetes: 5. 7 - 6.4 Diabete s: >6.4 Glycemi c control for niall lts with diabetes: <7.0

P erforme d by:
[facility] ([place])

[facility] Description: Lipid [id number] 08:03:00 Test Item Value Reference Range Interpretation Comments Cholesterol, Total (test code = 209 mg/dL 100-199 H 2093-3) Triglycerides (test code = 2571-8) 172 mg/dL 0-149 H HDL Cholesterol (test code = 29 mg/dL >39 L 2085-9) VLDL Cholesterol Renuka (test code = 32 mg/dL 5-40 27710-5) LDL Chol Calc (NIH) (test code = 148 mg/dL 0-99 H 77872-9) Comment: (test code = 11574-5) [facility] [employer] Description: Lipid [id number] 08:03:00 Test Item Value Reference Range Interpretation Comments Cholesterol, Total (test code = 209 mg/dL 100-199 H 2093-3) Triglycerides (test code = 2571-8) 172 mg/dL 0-149 H HDL Cholesterol (test code = 29 mg/dL >39 L 2085-9) VLDL Cholesterol Renuka (test code = 32 mg/dL 5-40 81651-6) LDL Chol Calc (NIH) (test code = 148 mg/dL 0-99 H 96065-3) Comment: (test code = 45514-6) [employer] Description: Lipid [id number] 08:03:00 Test Item Value Reference Range Interpretation Comments Cholesterol, Total (test code = 209 mg/dL 100-199 H 2093-3) Triglycerides (test code = 2571-8) 172 mg/dL 0-149 H HDL Cholesterol (test code = 29 mg/dL >39 L 5-9) VLDL Cholesterol Renuka (test code = 32 mg/dL 5-40 34838-9) LDL Chol Calc (NIH) (test code = 148 mg/dL 0-99 H 04558-1) Comment: (test code = 56276-7) [employer] Description: Lipid [id number] 08:03:00 Test Item Value Reference Range Interpretation Comments Cholesterol, Total (test code = 209 mg/dL 100-199 H 2093-3) Triglycerides (test code = 2571-8) 172 mg/dL 0-149 H HDL Cholesterol (test code = 29 mg/dL >39 L 5-9) VLDL Cholesterol Renuka (test code = 32 mg/dL 5-40 61956-9) LDL Chol Calc (NIH) (test code = 148 mg/dL 0-99 H 74844-4) Comment: (test code = 65739-5) [employer] Description: Lipid [id number] 08:03:00 Test Item Value Reference Range Interpretation Comments Cholesterol, Total (test code = 209 mg/dL 100-199 H 2093-3) Triglycerides (test code = 2571-8) 172 mg/dL 0-149 H HDL Cholesterol (test code = 29 mg/dL >39 L 5-9) VLDL Cholesterol Renuka (test code = 32 mg/dL 5-40 86170-9) LDL Chol Calc (NIH) (test code = 148 mg/dL 0-99 H 03358-7) Comment: (test code = 91583-4) [employer] Description: Lipid [id number] 08:03:00 Test Item Value Reference Range Interpretation Comments Cholesterol, Total (test code = 209 mg/dL 100-199 H 2093-3) Triglycerides (test code = 2571-8) 172 mg/dL 0-149 H HDL Cholesterol (test code = 29 mg/dL >39 L 5-9) VLDL Cholesterol Renuka (test code = 32 mg/dL 5-40 98924-5) LDL Chol Calc (NIH) (test code = 148 mg/dL 0-99 H 75131-3) Comment: (test code = 21266-7) [employer] Description: Lipid [id number] 08:03:00 Test Item Value Reference Range Interpretation Comments Cholesterol, Total (test code = 209 mg/dL 100-199 H 2093-3) Triglycerides (test code = 2571-8) 172 mg/dL 0-149 H HDL Cholesterol (test code = 29 mg/dL >39 L 2085-9) VLDL Cholesterol Renuka (test code = 32 mg/dL 5-40 67903-4) LDL Chol Calc (NIH) (test code = 148 mg/dL 0-99 H 03491-6) Comment: (test code = 04480-0) [employer] Description: Lipid [id number] 08:03:00 Test Item Value Reference Range Interpretation Comments Cholesterol, Total (test code = 209 mg/dL 100-199 H 3-3) Triglycerides (test code = 2571-8) 172 mg/dL 0-149 H HDL Cholesterol (test code = 29 mg/dL >39 L 5-9) VLDL Cholesterol Renuka (test code = 32 mg/dL 5-40 05117-9) LDL Chol Calc (NIH) (test code = 148 mg/dL 0-99 H 42591-7) Comment: (test code = 46994-8) [employer] Description: Lipid [id number] 08:03:00 Test Item Value Reference Range Interpretation Comments Cholesterol, Total (test code = 209 mg/dL 100-199 H 3-3) Triglycerides (test code = 2571-8) 172 mg/dL 0-149 H HDL Cholesterol (test code = 29 mg/dL >39 L 2085-9) VLDL Cholesterol Renuka (test code = 32 mg/dL 5-40 46059-6) LDL Chol Calc (NIH) (test code = 148 mg/dL 0-99 H 14397-8) Comment: (test code = 57444-3) [employer] Description: Lipid [id number] 08:03:00 Test Item Value Reference Range Interpretation Comments Cholesterol, Total (test code = 209 mg/dL 100-199 H 2093-3) Triglycerides (test code = 2571-8) 172 mg/dL 0-149 H HDL Cholesterol (test code = 29 mg/dL >39 L 2085-9) VLDL Cholesterol Renuka (test code = 32 mg/dL 5-40 99454-7) LDL Chol Calc (NIH) (test code = 148 mg/dL 0-99 H 46710-7) Comment: (test code = 77712-6) [employer] Description: Lipid [id number] 08:03:00 Test Item Value Reference Range Interpretation Comments Cholesterol, Total (test code = 209 mg/dL 100-199 H 2093-3) Triglycerides (test code = 2571-8) 172 mg/dL 0-149 H HDL Cholesterol (test code = 29 mg/dL >39 L 2085-9) VLDL Cholesterol Renuka (test code = 32 mg/dL 5-40 77578-4) LDL Chol Calc (NIH) (test code = 148 mg/dL 0-99 H 59812-9) Comment: (test code = 30804-8) [employer] Description: Lipid [id number] 08:03:00 Test Item Value Reference Range Interpretation Comments Cholesterol, Total (test code = 209 mg/dL 100-199 H 2093-3) Triglycerides (test code = 2571-8) 172 mg/dL 0-149 H HDL Cholesterol (test code = 29 mg/dL >39 L 2085-9) VLDL Cholesterol Renuka (test code = 32 mg/dL 5-40 02872-6) LDL Chol Calc (NIH) (test code = 148 mg/dL 0-99 H 65245-3) Comment: (test code = 31581-0) [employer] Description: Lipid [id number] 08:03:00 Test Item Value Reference Range Interpretation Comments Cholesterol, Total (test code = 209 mg/dL 100-199 H 2093-3) Triglycerides (test code = 2571-8) 172 mg/dL 0-149 H HDL Cholesterol (test code = 29 mg/dL >39 L 2085-9) VLDL Cholesterol Renuka (test code = 32 mg/dL 5-40 33781-7) LDL Chol Calc (NIH) (test code = 148 mg/dL 0-99 H 91775-7) Comment: (test code = 96377-6) [employer] Description: Lipid [id number] 08:03:00 Test Item Value Reference Range Interpretation Comments Cholesterol, Total (test code = 209 mg/dL 100-199 H 2093-3) Triglycerides (test code = 2571-8) 172 mg/dL 0-149 H HDL Cholesterol (test code = 29 mg/dL >39 L 2084-9) VLDL Cholesterol Renuka (test code = 32 mg/dL 5-40 04937-2) LDL Chol Calc (NIH) (test code = 148 mg/dL 0-99 H 19337-5) Comment: (test code = 41030-7) [employer] Description: Lipid [id number] 08:03:00 Test Item Value Reference Range Interpretation Comments Cholesterol, Total (test code = 209 mg/dL 100-199 H 3-3) Triglycerides (test code = 2571-8) 172 mg/dL 0-149 H HDL Cholesterol (test code = 29 mg/dL >39 L 9) VLDL Cholesterol Renuka (test code = 32 mg/dL 5-40 95232-1) LDL Chol Calc (NIH) (test code = 148 mg/dL 0-99 H 46488-3) Comment: (test code = 05565-8) [employer] Description: Lipid [id number] 08:03:00 Test Item Value Reference Range Interpretation Comments Cholesterol, Total (test code = 209 mg/dL 100-199 H 2093-3) Triglycerides (test code = 2571-8) 172 mg/dL 0-149 H HDL Cholesterol (test code = 29 mg/dL >39 L 9) VLDL Cholesterol Renuka (test code = 32 mg/dL 5-40 20368-9) LDL Chol Calc (NIH) (test code = 148 mg/dL 0-99 H 30230-5) Comment: (test code = 98338-2) [employer] Description: Lipid [id number] 08:03:00 Test Item Value Reference Range Interpretation Comments Cholesterol, Total (test code = 209 mg/dL 100-199 H 2093-3) Triglycerides (test code = 2571-8) 172 mg/dL 0-149 H HDL Cholesterol (test code = 29 mg/dL >39 L 5-9) VLDL Cholesterol Renuka (test code = 32 mg/dL 5-40 14397-5) LDL Chol Calc (NIH) (test code = 148 mg/dL 0-99 H 04074-0) Comment: (test code = 46395-4) [employer] Description: Lipid [id number] 08:03:00 Test Item Value Reference Range Interpretation Comments Cholesterol, Total (test code = 209 mg/dL 100-199 H 3-3) Triglycerides (test code = 2571-8) 172 mg/dL 0-149 H HDL Cholesterol (test code = 29 mg/dL >39 L 5-9) VLDL Cholesterol Renuka (test code = 32 mg/dL 5-40 03761-2) LDL Chol Calc (NIH) (test code = 148 mg/dL 0-99 H 68585-4) Comment: (test code = 57125-3) [employer] Description: Comp. Metabolic Panel (14)2020-03-07 06:49:00 Test Item Value Reference Range Interpretation Comments Glucose (test code = 2345-7) 441 mg/dL 65-99 H BUN (test code = 3094-0) 52 mg/dL 6-24 H Creatinine (test code = 2.05 mg/dL 0.76-1.27 H 2160-0) eGFR If NonAfricn Am (test 38 mL/min/1.73 >59 L code = 14024-0) eGFR If Africn Am (test code = 44 mL/min/1.73 >59 L 34204-2) BUN/Creatinine Ratio (test 25 9-20 H code = 3097-3) Sodium (test code = 2951-2) 138 mmol/L 134-144 Potassium (test code = 2823-3) 5.4 mmol/L 3.5-5.2 H Chloride (test code = 2075-0) 96 mmol/L 96-106 Carbon Dioxide, Total (test 29 mmol/L 20-29 code = 8-9) Calcium (test code = 17561-1) 9.2 mg/dL 8.7-10.2 Protein, Total (test code = 6.2 g/dL 6.0-8.5 2885-2) Albumin (test code = 1751-7) 3.4 g/dL 4.0-5.0 L Globulin, Total (test code = 2.8 g/dL 1.5-4.5 90309-1) A/G Ratio (test code = 1759-0) 1.2 1.2-2.2 Bilirubin, Total (test code = 0.5 mg/dL 0.0-1.2 1975-2) Alkaline Phosphatase (test 112 IU/L 39-117 code = 6768-6) AST (SGOT) (test code = 21 IU/L 0-40 1920-8) ALT (SGPT) (test code = 31 IU/L 0-44 1742-6) [facility] Description: Comp. Metabolic Panel (2020-03-07 06:49:00 Test Item Value Reference Range Interpretation Comments Glucose (test code = 2345-7) 441 mg/dL 65-99 H BUN (test code = 3094-0) 52 mg/dL 6-24 H Creatinine (test code = 2.05 mg/dL 0.76-1.27 H 2160-0) eGFR If NonAfricn Am (test 38 mL/min/1.73 >59 L code = 80483-0) eGFR If Africn Am (test code = 44 mL/min/1.73 >59 L 60460-6) BUN/Creatinine Ratio (test 25 9-20 H code = 3097-3) Sodium (test code = 2951-2) 138 mmol/L 134-144 Potassium (test code = 2823-3) 5.4 mmol/L 3.5-5.2 H Chloride (test code = 2075-0) 96 mmol/L 96-106 Carbon Dioxide, Total (test 29 mmol/L 20-29 code = 8-9) Calcium (test code = 45258-9) 9.2 mg/dL 8.7-10.2 Protein, Total (test code = 6.2 g/dL 6.0-8.5 2885-2) Albumin (test code = 1751-7) 3.4 g/dL 4.0-5.0 L Globulin, Total (test code = 2.8 g/dL 1.5-4.5 37460-8) A/G Ratio (test code = 1759-0) 1.2 1.2-2.2 Bilirubin, Total (test code = 0.5 mg/dL 0.0-1.2 1974-2) Alkaline Phosphatase (test 112 IU/L 39-117 code = 6768-6) AST (SGOT) (test code = 21 IU/L 0-40 1920-8) ALT (SGPT) (test code = 31 IU/L 0-44 1742-6) [facility] Description: Comp. Metabolic Panel ()2020-03-07 06:49:00 Test Item Value Reference Range Interpretation Comments Glucose (test code = 2345-7) 441 mg/dL 65-99 H BUN (test code = 3094-0) 52 mg/dL 6-24 H Creatinine (test code = 2.05 mg/dL 0.76-1.27 H 2160-0) eGFR If NonAfricn Am (test 38 mL/min/1.73 >59 L code = 70469-7) eGFR If Africn Am (test code = 44 mL/min/1.73 >59 L 32986-4) BUN/Creatinine Ratio (test 25 9-20 H code = 3097-3) Sodium (test code = 2951-2) 138 mmol/L 134-144 Potassium (test code = 2823-3) 5.4 mmol/L 3.5-5.2 H Chloride (test code = 2075-0) 96 mmol/L 96-106 Carbon Dioxide, Total (test 29 mmol/L 20-29 code = 2027-9) Calcium (test code = 32097-8) 9.2 mg/dL 8.7-10.2 Protein, Total (test code = 6.2 g/dL 6.0-8.5 2885-2) Albumin (test code = 1751-7) 3.4 g/dL 4.0-5.0 L Globulin, Total (test code = 2.8 g/dL 1.5-4.5 23969-7) A/G Ratio (test code = 1759-0) 1.2 1.2-2.2 Bilirubin, Total (test code = 0.5 mg/dL 0.0-1.2 1974-2) Alkaline Phosphatase (test 112 IU/L 39-117 code = 6768-6) AST (SGOT) (test code = 21 IU/L 0-40 1920-8) ALT (SGPT) (test code = 31 IU/L 0-44 1742-6) [facility] Description: Comp. Metabolic Panel (14)2020-03-07 06:49:00 Test Item Value Reference Range Interpretation Comments Glucose (test code = 2345-7) 441 mg/dL 65-99 H BUN (test code = 3094-0) 52 mg/dL 6-24 H Creatinine (test code = 2.05 mg/dL 0.76-1.27 H 2160-0) eGFR If NonAfricn Am (test 38 mL/min/1.73 >59 L code = 10141-6) eGFR If Africn Am (test code = 44 mL/min/1.73 >59 L 86774-3) BUN/Creatinine Ratio (test 25 9-20 H code = 3097-3) Sodium (test code = 2951-2) 138 mmol/L 134-144 Potassium (test code = 2823-3) 5.4 mmol/L 3.5-5.2 H Chloride (test code = 2075-0) 96 mmol/L 96-106 Carbon Dioxide, Total (test 29 mmol/L 20-29 code = 2027-9) Calcium (test code = 49711-1) 9.2 mg/dL 8.7-10.2 Protein, Total (test code = 6.2 g/dL 6.0-8.5 2885-2) Albumin (test code = 1751-7) 3.4 g/dL 4.0-5.0 L Globulin, Total (test code = 2.8 g/dL 1.5-4.5 62910-4) A/G Ratio (test code = 1759-0) 1.2 1.2-2.2 Bilirubin, Total (test code = 0.5 mg/dL 0.0-1.2 1975-2) Alkaline Phosphatase (test 112 IU/L 39-117 code = 6768-6) AST (SGOT) (test code = 21 IU/L 0-40 1920-8) ALT (SGPT) (test code = 31 IU/L 0-44 1742-6) [facility] Description: Comp. Metabolic Panel (14)2020-03-07 06:49:00 Test Item Value Reference Range Interpretation Comments Glucose (test code = 2345-7) 441 mg/dL 65-99 H BUN (test code = 3094-0) 52 mg/dL 6-24 H Creatinine (test code = 2.05 mg/dL 0.76-1.27 H 2160-0) eGFR If NonAfricn Am (test 38 mL/min/1.73 >59 L code = 10572-2) eGFR If Africn Am (test code = 44 mL/min/1.73 >59 L 65574-5) BUN/Creatinine Ratio (test 25 9-20 H code = 3097-3) Sodium (test code = 2951-2) 138 mmol/L 134-144 Potassium (test code = 2823-3) 5.4 mmol/L 3.5-5.2 H Chloride (test code = 2075-0) 96 mmol/L 96-106 Carbon Dioxide, Total (test 29 mmol/L 20-29 code = 2027-9) Calcium (test code = 52423-5) 9.2 mg/dL 8.7-10.2 Protein, Total (test code = 6.2 g/dL 6.0-8.5 2885-2) Albumin (test code = 1751-7) 3.4 g/dL 4.0-5.0 L Globulin, Total (test code = 2.8 g/dL 1.5-4.5 38781-3) A/G Ratio (test code = 1759-0) 1.2 1.2-2.2 Bilirubin, Total (test code = 0.5 mg/dL 0.0-1.2 1975-2) Alkaline Phosphatase (test 112 IU/L 39-117 code = 6768-6) AST (SGOT) (test code = 21 IU/L 0-40 0-8) ALT (SGPT) (test code = 31 IU/L 0-44 2-6) [facility] Description: Comp. Metabolic Panel (14)2020-03-07 06:49:00 Test Item Value Reference Range Interpretation Comments Glucose (test code = 2345-7) 441 mg/dL 65-99 H BUN (test code = 3094-0) 52 mg/dL 6-24 H Creatinine (test code = 2.05 mg/dL 0.76-1.27 H 2160-0) eGFR If NonAfricn Am (test 38 mL/min/1.73 >59 L code = 31684-6) eGFR If Africn Am (test code = 44 mL/min/1.73 >59 L 99122-6) BUN/Creatinine Ratio (test 25 9-20 H code = 3097-3) Sodium (test code = 2951-2) 138 mmol/L 134-144 Potassium (test code = 2823-3) 5.4 mmol/L 3.5-5.2 H Chloride (test code = 2075-0) 96 mmol/L 96-106 Carbon Dioxide, Total (test 29 mmol/L 20-29 code = 8-9) Calcium (test code = 31801-4) 9.2 mg/dL 8.7-10.2 Protein, Total (test code = 6.2 g/dL 6.0-8.5 2885-2) Albumin (test code = 1751-7) 3.4 g/dL 4.0-5.0 L Globulin, Total (test code = 2.8 g/dL 1.5-4.5 99539-0) A/G Ratio (test code = 1759-0) 1.2 1.2-2.2 Bilirubin, Total (test code = 0.5 mg/dL 0.0-1.2 1975-2) Alkaline Phosphatase (test 112 IU/L 39-117 code = 6768-6) AST (SGOT) (test code = 21 IU/L 0-40 1920-8) ALT (SGPT) (test code = 31 IU/L 0-44 1742-6) [facility] Description: Comp. Metabolic Panel (14)2020-03-07 06:49:00 Test Item Value Reference Range Interpretation Comments Glucose (test code = 2345-7) 441 mg/dL 65-99 H BUN (test code = 3094-0) 52 mg/dL 6-24 H Creatinine (test code = 2.05 mg/dL 0.76-1.27 H 2160-0) eGFR If NonAfricn Am (test 38 mL/min/1.73 >59 L code = 60181-7) eGFR If Africn Am (test code = 44 mL/min/1.73 >59 L 82190-7) BUN/Creatinine Ratio (test 25 9-20 H code = 3097-3) Sodium (test code = 2951-2) 138 mmol/L 134-144 Potassium (test code = 2823-3) 5.4 mmol/L 3.5-5.2 H Chloride (test code = 2075-0) 96 mmol/L 96-106 Carbon Dioxide, Total (test 29 mmol/L 20-29 code = 2028-9) Calcium (test code = 23517-5) 9.2 mg/dL 8.7-10.2 Protein, Total (test code = 6.2 g/dL 6.0-8.5 2885-2) Albumin (test code = 1751-7) 3.4 g/dL 4.0-5.0 L Globulin, Total (test code = 2.8 g/dL 1.5-4.5 84959-1) A/G Ratio (test code = 1759-0) 1.2 1.2-2.2 Bilirubin, Total (test code = 0.5 mg/dL 0.0-1.2 1975-2) Alkaline Phosphatase (test 112 IU/L 39-117 code = 6768-6) AST (SGOT) (test code = 21 IU/L 0-40 1920-8) ALT (SGPT) (test code = 31 IU/L 0-44 1742-6) [facility] Description: Comp. Metabolic Panel (142020-03-07 06:49:00 Test Item Value Reference Range Interpretation Comments Glucose (test code = 2345-7) 441 mg/dL 65-99 H BUN (test code = 3094-0) 52 mg/dL 6-24 H Creatinine (test code = 2.05 mg/dL 0.76-1.27 H 2160-0) eGFR If NonAfricn Am (test 38 mL/min/1.73 >59 L code = 44271-3) eGFR If Africn Am (test code = 44 mL/min/1.73 >59 L 59069-5) BUN/Creatinine Ratio (test 25 9-20 H code = 3097-3) Sodium (test code = 2951-2) 138 mmol/L 134-144 Potassium (test code = 2823-3) 5.4 mmol/L 3.5-5.2 H Chloride (test code = 2075-0) 96 mmol/L 96-106 Carbon Dioxide, Total (test 29 mmol/L -29 code = 2027-9) Calcium (test code = 28054-7) 9.2 mg/dL 8.7-10.2 Protein, Total (test code = 6.2 g/dL 6.0-8.5 2885-2) Albumin (test code = 1751-7) 3.4 g/dL 4.0-5.0 L Globulin, Total (test code = 2.8 g/dL 1.5-4.5 48810-7) A/G Ratio (test code = 1759-0) 1.2 1.2-2.2 Bilirubin, Total (test code = 0.5 mg/dL 0.0-1.2 1975-2) Alkaline Phosphatase (test 112 IU/L 39-117 code = 6768-6) AST (SGOT) (test code = 21 IU/L 0-40 1920-8) ALT (SGPT) (test code = 31 IU/L 0-44 1742-6) [facility] Description: Comp. Metabolic Panel (2020-03-07 06:49:00 Test Item Value Reference Range Interpretation Comments Glucose (test code = 2345-7) 441 mg/dL 65-99 H BUN (test code = 3094-0) 52 mg/dL 6-24 H Creatinine (test code = 2.05 mg/dL 0.76-1.27 H 2160-0) eGFR If NonAfricn Am (test 38 mL/min/1.73 >59 L code = 96390-7) eGFR If Africn Am (test code = 44 mL/min/1.73 >59 L 31464-8) BUN/Creatinine Ratio (test 25 9-20 H code = 3097-3) Sodium (test code = 2951-2) 138 mmol/L 134-144 Potassium (test code = 2823-3) 5.4 mmol/L 3.5-5.2 H Chloride (test code = 2075-0) 96 mmol/L 96-106 Carbon Dioxide, Total (test 29 mmol/L -29 code = 2027-) Calcium (test code = 74367-3) 9.2 mg/dL 8.7-10.2 Protein, Total (test code = 6.2 g/dL 6.0-8.5 2885-2) Albumin (test code = 1751-7) 3.4 g/dL 4.0-5.0 L Globulin, Total (test code = 2.8 g/dL 1.5-4.5 32798-4) A/G Ratio (test code = 1759-0) 1.2 1.2-2.2 Bilirubin, Total (test code = 0.5 mg/dL 0.0-1.2 1975-2) Alkaline Phosphatase (test 112 IU/L 39-117 code = 6768-6) AST (SGOT) (test code = 21 IU/L 0-40 1920-8) ALT (SGPT) (test code = 31 IU/L 0-44 1742-6) Access [facility] Description: Comp. Metabolic Panel (142020-03-07 06:49:00 Test Item Value Reference Range Interpretation Comments Glucose (test code = 2345-7) 441 mg/dL 65-99 H BUN (test code = 3094-0) 52 mg/dL 6-24 H Creatinine (test code = 2.05 mg/dL 0.76-1.27 H 2160-0) eGFR If NonAfricn Am (test 38 mL/min/1.73 >59 L code = 74260-9) eGFR If Africn Am (test code = 44 mL/min/1.73 >59 L 31275-7) BUN/Creatinine Ratio (test 25 9-20 H code = 3097-3) Sodium (test code = 2951-2) 138 mmol/L 134-144 Potassium (test code = 2823-3) 5.4 mmol/L 3.5-5.2 H Chloride (test code = 2075-0) 96 mmol/L 96-106 Carbon Dioxide, Total (test 29 mmol/L -29 code = 2027-9) Calcium (test code = 37004-7) 9.2 mg/dL 8.7-10.2 Protein, Total (test code = 6.2 g/dL 6.0-8.5 2885-2) Albumin (test code = 1751-7) 3.4 g/dL 4.0-5.0 L Globulin, Total (test code = 2.8 g/dL 1.5-4.5 42192-8) A/G Ratio (test code = 1759-0) 1.2 1.2-2.2 Bilirubin, Total (test code = 0.5 mg/dL 0.0-1.2 1975-2) Alkaline Phosphatase (test 112 IU/L 39-117 code = 6768-6) AST (SGOT) (test code = 21 IU/L 0-40 1920-8) ALT (SGPT) (test code = 31 IU/L 0-44 1742-6) [facility] Description: Comp. Metabolic Panel (14)2020-03-07 06:49:00 Test Item Value Reference Range Interpretation Comments Glucose (test code = 2345-7) 441 mg/dL 65-99 H BUN (test code = 3094-0) 52 mg/dL 6-24 H Creatinine (test code = 2.05 mg/dL 0.76-1.27 H 2160-0) eGFR If NonAfricn Am (test 38 mL/min/1.73 >59 L code = 54216-9) eGFR If Africn Am (test code = 44 mL/min/1.73 >59 L 37147-7) BUN/Creatinine Ratio (test 25 9-20 H code = 3097-3) Sodium (test code = 2951-2) 138 mmol/L 134-144 Potassium (test code = 2823-3) 5.4 mmol/L 3.5-5.2 H Chloride (test code = 2075-0) 96 mmol/L 96-106 Carbon Dioxide, Total (test 29 mmol/L 20-29 code = 8-9) Calcium (test code = 43775-1) 9.2 mg/dL 8.7-10.2 Protein, Total (test code = 6.2 g/dL 6.0-8.5 2885-2) Albumin (test code = 1751-7) 3.4 g/dL 4.0-5.0 L Globulin, Total (test code = 2.8 g/dL 1.5-4.5 29771-0) A/G Ratio (test code = 1759-0) 1.2 1.2-2.2 Bilirubin, Total (test code = 0.5 mg/dL 0.0-1.2 1974-2) Alkaline Phosphatase (test 112 IU/L 39-117 code = 6768-6) AST (SGOT) (test code = 21 IU/L 0-40 1920-8) ALT (SGPT) (test code = 31 IU/L 0-44 1742-6) [facility] Description: Comp. Metabolic Panel (142020-03-07 06:49:00 Test Item Value Reference Range Interpretation Comments Glucose (test code = 2345-7) 441 mg/dL 65-99 H BUN (test code = 3094-0) 52 mg/dL 6-24 H Creatinine (test code = 2.05 mg/dL 0.76-1.27 H 2160-0) eGFR If NonAfricn Am (test 38 mL/min/1.73 >59 L code = 03162-1) eGFR If Africn Am (test code = 44 mL/min/1.73 >59 L 73792-1) BUN/Creatinine Ratio (test 25 9-20 H code = 3097-3) Sodium (test code = 2951-2) 138 mmol/L 134-144 Potassium (test code = 2823-3) 5.4 mmol/L 3.5-5.2 H Chloride (test code = 2075-0) 96 mmol/L 96-106 Carbon Dioxide, Total (test 29 mmol/L 20-29 code = 8-9) Calcium (test code = 17083-1) 9.2 mg/dL 8.7-10.2 Protein, Total (test code = 6.2 g/dL 6.0-8.5 2885-2) Albumin (test code = 1751-7) 3.4 g/dL 4.0-5.0 L Globulin, Total (test code = 2.8 g/dL 1.5-4.5 39128-9) A/G Ratio (test code = 1759-0) 1.2 1.2-2.2 Bilirubin, Total (test code = 0.5 mg/dL 0.0-1.2 1974-2) Alkaline Phosphatase (test 112 IU/L 39-117 code = 6768-6) AST (SGOT) (test code = 21 IU/L 0-40 1920-8) ALT (SGPT) (test code = 31 IU/L 0-44 1742-6) [facility] Description: Comp. Metabolic Panel (14)2020-03-07 06:49:00 Test Item Value Reference Range Interpretation Comments Glucose (test code = 2345-7) 441 mg/dL 65-99 H BUN (test code = 3094-0) 52 mg/dL 6-24 H Creatinine (test code = 2.05 mg/dL 0.76-1.27 H 2160-0) eGFR If NonAfricn Am (test 38 mL/min/1.73 >59 L code = 78949-0) eGFR If Africn Am (test code = 44 mL/min/1.73 >59 L 87637-6) BUN/Creatinine Ratio (test 25 9-20 H code = 3097-3) Sodium (test code = 2951-2) 138 mmol/L 134-144 Potassium (test code = 2823-3) 5.4 mmol/L 3.5-5.2 H Chloride (test code = 2075-0) 96 mmol/L 96-106 Carbon Dioxide, Total (test 29 mmol/L 20-29 code = 8-9) Calcium (test code = 83664-4) 9.2 mg/dL 8.7-10.2 Protein, Total (test code = 6.2 g/dL 6.0-8.5 2885-2) Albumin (test code = 1751-7) 3.4 g/dL 4.0-5.0 L Globulin, Total (test code = 2.8 g/dL 1.5-4.5 15273-2) A/G Ratio (test code = 1759-0) 1.2 1.2-2.2 Bilirubin, Total (test code = 0.5 mg/dL 0.0-1.2 1975-2) Alkaline Phosphatase (test 112 IU/L 39-117 code = 6768-6) AST (SGOT) (test code = 21 IU/L 0-40 1920-8) ALT (SGPT) (test code = 31 IU/L 0-44 1742-6) [facility] Description: Comp. Metabolic Panel (14)2020-03-07 06:49:00 Test Item Value Reference Range Interpretation Comments Glucose (test code = 2345-7) 441 mg/dL 65-99 H BUN (test code = 3094-0) 52 mg/dL 6-24 H Creatinine (test code = 2.05 mg/dL 0.76-1.27 H 2160-0) eGFR If NonAfricn Am (test 38 mL/min/1.73 >59 L code = 86431-2) eGFR If Africn Am (test code = 44 mL/min/1.73 >59 L 82334-8) BUN/Creatinine Ratio (test 25 9-20 H code = 3097-3) Sodium (test code = 2951-2) 138 mmol/L 134-144 Potassium (test code = 2823-3) 5.4 mmol/L 3.5-5.2 H Chloride (test code = 2075-0) 96 mmol/L 96-106 Carbon Dioxide, Total (test 29 mmol/L 20-29 code = 8-9) Calcium (test code = 76225-0) 9.2 mg/dL 8.7-10.2 Protein, Total (test code = 6.2 g/dL 6.0-8.5 2885-2) Albumin (test code = 1751-7) 3.4 g/dL 4.0-5.0 L Globulin, Total (test code = 2.8 g/dL 1.5-4.5 92853-5) A/G Ratio (test code = 1759-0) 1.2 1.2-2.2 Bilirubin, Total (test code = 0.5 mg/dL 0.0-1.2 1975-2) Alkaline Phosphatase (test 112 IU/L 39-117 code = 6768-6) AST (SGOT) (test code = 21 IU/L 0-40 1920-8) ALT (SGPT) (test code = 31 IU/L 0-44 1742-6) [facility] Description: Comp. Metabolic Panel (14)2020-03-07 06:49:00 Test Item Value Reference Range Interpretation Comments Glucose (test code = 2345-7) 441 mg/dL 65-99 H BUN (test code = 3094-0) 52 mg/dL 6-24 H Creatinine (test code = 2.05 mg/dL 0.76-1.27 H 2160-0) eGFR If NonAfricn Am (test 38 mL/min/1.73 >59 L code = 22813-5) eGFR If Africn Am (test code = 44 mL/min/1.73 >59 L 15074-6) BUN/Creatinine Ratio (test 25 9-20 H code = 3097-3) Sodium (test code = 2951-2) 138 mmol/L 134-144 Potassium (test code = 2823-3) 5.4 mmol/L 3.5-5.2 H Chloride (test code = 2075-0) 96 mmol/L 96-106 Carbon Dioxide, Total (test 29 mmol/L 20-29 code = 8-9) Calcium (test code = 79959-2) 9.2 mg/dL 8.7-10.2 Protein, Total (test code = 6.2 g/dL 6.0-8.5 2885-2) Albumin (test code = 1751-7) 3.4 g/dL 4.0-5.0 L Globulin, Total (test code = 2.8 g/dL 1.5-4.5 46341-2) A/G Ratio (test code = 1759-0) 1.2 1.2-2.2 Bilirubin, Total (test code = 0.5 mg/dL 0.0-1.2 1975-2) Alkaline Phosphatase (test 112 IU/L 39-117 code = 6768-6) AST (SGOT) (test code = 21 IU/L 0-40 1920-8) ALT (SGPT) (test code = 31 IU/L 0-44 1742-6) [facility] Description: Comp. Metabolic Panel (142020-03-07 06:49:00 Test Item Value Reference Range Interpretation Comments Glucose (test code = 2345-7) 441 mg/dL 65-99 H BUN (test code = 3094-0) 52 mg/dL 6-24 H Creatinine (test code = 2.05 mg/dL 0.76-1.27 H 2160-0) eGFR If NonAfricn Am (test 38 mL/min/1.73 >59 L code = 08783-1) eGFR If Africn Am (test code = 44 mL/min/1.73 >59 L 25557-4) BUN/Creatinine Ratio (test 25 9-20 H code = 3097-3) Sodium (test code = 2951-2) 138 mmol/L 134-144 Potassium (test code = 2823-3) 5.4 mmol/L 3.5-5.2 H Chloride (test code = 2075-0) 96 mmol/L 96-106 Carbon Dioxide, Total (test 29 mmol/L 20-29 code = 8-9) Calcium (test code = 41348-5) 9.2 mg/dL 8.7-10.2 Protein, Total (test code = 6.2 g/dL 6.0-8.5 2885-2) Albumin (test code = 1751-7) 3.4 g/dL 4.0-5.0 L Globulin, Total (test code = 2.8 g/dL 1.5-4.5 85308-3) A/G Ratio (test code = 1759-0) 1.2 1.2-2.2 Bilirubin, Total (test code = 0.5 mg/dL 0.0-1.2 1975-2) Alkaline Phosphatase (test 112 IU/L 39-117 code = 6768-6) AST (SGOT) (test code = 21 IU/L 0-40 1920-8) ALT (SGPT) (test code = 31 IU/L 0-44 1742-6) [facility] Description: Comp. Metabolic Panel (142020-03-07 06:49:00 Test Item Value Reference Range Interpretation Comments Glucose (test code = 2345-7) 441 mg/dL 65-99 H BUN (test code = 3094-0) 52 mg/dL 6-24 H Creatinine (test code = 2.05 mg/dL 0.76-1.27 H 2160-0) eGFR If NonAfricn Am (test 38 mL/min/1.73 >59 L code = 43914-2) eGFR If Africn Am (test code = 44 mL/min/1.73 >59 L 75350-9) BUN/Creatinine Ratio (test 25 9-20 H code = 3097-3) Sodium (test code = 2951-2) 138 mmol/L 134-144 Potassium (test code = 2823-3) 5.4 mmol/L 3.5-5.2 H Chloride (test code = 2075-0) 96 mmol/L 96-106 Carbon Dioxide, Total (test 29 mmol/L - code = 2027-) Calcium (test code = 68157-2) 9.2 mg/dL 8.7-10.2 Protein, Total (test code = 6.2 g/dL 6.0-8.5 2885-2) Albumin (test code = 1751-7) 3.4 g/dL 4.0-5.0 L Globulin, Total (test code = 2.8 g/dL 1.5-4.5 27777-1) A/G Ratio (test code = 1759-0) 1.2 1.2-2.2 Bilirubin, Total (test code = 0.5 mg/dL 0.0-1.2 1975-2) Alkaline Phosphatase (test 112 IU/L 39-117 code = 6768-6) AST (SGOT) (test code = 21 IU/L 0-40 1920-8) ALT (SGPT) (test code = 31 IU/L 0-44 1742-6) [facility] Description: Comp. Metabolic Panel (14)2020-03-07 06:49:00 Test Item Value Reference Range Interpretation Comments Glucose (test code = 2345-7) 441 mg/dL 65-99 H BUN (test code = 3094-0) 52 mg/dL 6-24 H Creatinine (test code = 2.05 mg/dL 0.76-1.27 H 2160-0) eGFR If NonAfricn Am (test 38 mL/min/1.73 >59 L code = 75491-5) eGFR If Africn Am (test code = 44 mL/min/1.73 >59 L 44020-6) BUN/Creatinine Ratio (test 25 9-20 H code = 3097-3) Sodium (test code = 2951-2) 138 mmol/L 134-144 Potassium (test code = 2823-3) 5.4 mmol/L 3.5-5.2 H Chloride (test code = 2075-0) 96 mmol/L 96-106 Carbon Dioxide, Total (test 29 mmol/L - code = 2027-9) Calcium (test code = 71493-5) 9.2 mg/dL 8.7-10.2 Protein, Total (test code = 6.2 g/dL 6.0-8.5 2885-2) Albumin (test code = 1751-7) 3.4 g/dL 4.0-5.0 L Globulin, Total (test code = 2.8 g/dL 1.5-4.5 79193-8) A/G Ratio (test code = 1759-0) 1.2 1.2-2.2 Bilirubin, Total (test code = 0.5 mg/dL 0.0-1.2 1975-2) Alkaline Phosphatase (test 112 IU/L 39-117 code = 6768-6) AST (SGOT) (test code = 21 IU/L 0-40 1920-8) ALT (SGPT) (test code = 31 IU/L 0-44 1742-6) [facility]/[id number] 07:17:11Tyshawn Serra MD 2019 7:47 AMIncision/DrainageDate/Time: 2019 [...] NoneType of anesthesia: NoneGrafts or Implan ts: [facility]: Hemoglobin A1c/Hemoglobin.total in [id number] 16:33:00 Test Item Value Reference Range Interpretation Comments Hemoglobin A1c (test code 13.0 % 4.8-5.6 H = 4548-4) . Prediabetes: 5. 7 - 6.4 Diabete s: >6.4 Glycemi c control for niall lts with diabetes: <7.0

P erforme d by:
[facility] [place] ([place])

[facility] Description: Hemoglobin A1c/Hemoglobin.total in Blood 2019-11-10 16:33:00 Test Item Value Reference Range Interpretation Comments Hemoglobin A1c (test code 13.0 % 4.8-5.6 H = 4548-4) . Prediabetes: 5. 7 - 6.4 Diabete s: >6.4 Glycemi c control for niall lts with diabetes: <7.0

P erforme d by:
[facility] ([place])

[facility] Description: Hemoglobin A1c/Hemoglobin.total in Blood 2019-11-10 16:33:00 Test Item Value Reference Range Interpretation Comments Hemoglobin A1c (test code 13.0 % 4.8-5.6 H = 4548-4) . Prediabetes: 5. 7 - 6.4 Diabete s: >6.4 Glycemi c control for niall lts with diabetes: <7.0

P erforme d by:
[facility] [place] ([place])

[facility] Description: Hemoglobin A1c/Hemoglobin.total in Blood 2019-11-10 16:33:00 Test Item Value Reference Range Interpretation Comments Hemoglobin A1c (test code 13.0 % 4.8-5.6 H = 4548-4) . Prediabetes: 5. 7 - 6.4 Diabete s: >6.4 Glycemi c control for niall lts with diabetes: <7.0

P erforme d by:
[facility] [place] ([place])

[facility] Description: Hemoglobin A1c/Hemoglobin.total in Blood 2019-11-10 16:33:00 Test Item Value Reference Range Interpretation Comments Hemoglobin A1c (test code 13.0 % 4.8-5.6 H = 4548-4) . Prediabetes: 5. 7 - 6.4 Diabete s: >6.4 Glycemi c control for niall lts with diabetes: <7.0

P erforme d by:
[facility] [place] ([place])

[facility] Description: Hemoglobin A1c/Hemoglobin.total in Blood 2019-11-10 16:33:00 Test Item Value Reference Range Interpretation Comments Hemoglobin A1c (test code 13.0 % 4.8-5.6 H = 4548-4) . Prediabetes: 5. 7 - 6.4 Diabete s: >6.4 Glycemi c control for niall lts with diabetes: <7.0

P erforme d by:
[facility] ([place])

[facility] Description: Hemoglobin A1c/Hemoglobin.total in Blood 2019-11-10 16:33:00 Test Item Value Reference Range Interpretation Comments Hemoglobin A1c (test code 13.0 % 4.8-5.6 H = 4548-4) . Prediabetes: 5. 7 - 6.4 Diabete s: >6.4 Glycemi c control for niall lts with diabetes: <7.0

P erforme d by:
[facility] [place] ([place])

[facility] Description: Hemoglobin A1c/Hemoglobin.total in Blood 2019-11-10 16:33:00 Test Item Value Reference Range Interpretation Comments Hemoglobin A1c (test code 13.0 % 4.8-5.6 H = 4548-4) . Prediabetes: 5. 7 - 6.4 Diabete s: >6.4 Glycemi c control for niall lts with diabetes: <7.0

P erforme d by:
[facility] [place] ([place])

[facility] Description: Hemoglobin A1c/Hemoglobin.total in Blood 2019-11-10 16:33:00 Test Item Value Reference Range Interpretation Comments Hemoglobin A1c (test code 13.0 % 4.8-5.6 H = 4548-4) . Prediabetes: 5. 7 - 6.4 Diabete s: >6.4 Glycemi c control for niall lts with diabetes: <7.0

P erforme d by:
[facility] [place] ([place])

[facility] Description: Hemoglobin A1c/Hemoglobin.total in Blood 2019-11-10 16:33:00 Test Item Value Reference Range Interpretation Comments Hemoglobin A1c (test code 13.0 % 4.8-5.6 H = 4548-4) . Prediabetes: 5. 7 - 6.4 Diabete s: >6.4 Glycemi c control for niall lts with diabetes: <7.0

P erforme d by:
[facility] ([place])

[facility] Description: Hemoglobin A1c/Hemoglobin.total in Blood 2019-11-10 16:33:00 Test Item Value Reference Range Interpretation Comments Hemoglobin A1c (test code 13.0 % 4.8-5.6 H = 4548-4) . Prediabetes: 5. 7 - 6.4 Diabete s: >6.4 Glycemi c control for niall lts with diabetes: <7.0

P erforme d by:
[facility] [place] ([place])

[facility] Description: Hemoglobin A1c/Hemoglobin.total in Blood 2019-11-10 16:33:00 Test Item Value Reference Range Interpretation Comments Hemoglobin A1c (test code 13.0 % 4.8-5.6 H = 4548-4) . Prediabetes: 5. 7 - 6.4 Diabete s: >6.4 Glycemi c control for niall lts with diabetes: <7.0

P erforme d by:
[facility] [place] ([place])

[facility] Description: Hemoglobin A1c/Hemoglobin.total in Blood 2019-11-10 16:33:00 Test Item Value Reference Range Interpretation Comments Hemoglobin A1c (test code 13.0 % 4.8-5.6 H = 4548-4) . Prediabetes: 5. 7 - 6.4 Diabete s: >6.4 Glycemi c control for niall lts with diabetes: <7.0

P erforme d by:
[facility] [place] ([place])

[facility] Description: Hemoglobin A1c/Hemoglobin.total in Blood 2019-11-10 16:33:00 Test Item Value Reference Range Interpretation Comments Hemoglobin A1c (test code 13.0 % 4.8-5.6 H = 4548-4) . Prediabetes: 5. 7 - 6.4 Diabete s: >6.4 Glycemi c control for niall lts with diabetes: <7.0

P erforme d by:
[facility] ([place])

[facility] Description: Hemoglobin A1c/Hemoglobin.total in Blood 2019-11-10 16:33:00 Test Item Value Reference Range Interpretation Comments Hemoglobin A1c (test code 13.0 % 4.8-5.6 H = 4548-4) . Prediabetes: 5. 7 - 6.4 Diabete s: >6.4 Glycemi c control for niall lts with diabetes: <7.0

P erforme d by:
[facility] [place] ([place])

[facility] Description: Hemoglobin A1c/Hemoglobin.total in Blood 2019-11-10 16:33:00 Test Item Value Reference Range Interpretation Comments Hemoglobin A1c (test code 13.0 % 4.8-5.6 H = 4548-4) . Prediabetes: 5. 7 - 6.4 Diabete s: >6.4 Glycemi c control for niall lts with diabetes: <7.0

P erforme d by:
[facility] [place] ([place])

[facility] Description: Hemoglobin A1c/Hemoglobin.total in Blood 2019-11-10 16:33:00 Test Item Value Reference Range Interpretation Comments Hemoglobin A1c (test code 13.0 % 4.8-5.6 H = 4548-4) . Prediabetes: 5. 7 - 6.4 Diabete s: >6.4 Glycemi c control for niall lts with diabetes: <7.0

P erforme d by:
[facility] ([place])

[facility]: Hemoglobin A1c/Hemoglobin.total in Blood 2019-11-10 16:33:00 Test Item Value Reference Range Interpretation Comments Hemoglobin A1c (test code 13.0 % 4.8-5.6 H = 4548-4) . Prediabetes: 5. 7 - 6.4 Diabete s: >6.4 Glycemi c control for niall lts with diabetes: <7.0

P erforme d by:
[facility] ([place])

[facility] Description: Hemoglobin A1c/Hemoglobin.total in Blood 2019-11-10 16:33:00 Test Item Value Reference Range Interpretation Comments Hemoglobin A1c (test code 13.0 % 4.8-5.6 H = 4548-4) . Prediabetes: 5. 7 - 6.4 Diabete s: >6.4 Glycemi c control for niall lts with diabetes: <7.0

P erforme d by:
[facility] ([place])

[facility] Description: Comp. Metabolic Panel (14)2019-11-10 03:19:00 Test Item Value Reference Range Interpretation Comments Glucose (test code = 2345-7) 439 mg/dL 65-99 H BUN (test code = 3094-0) 49 mg/dL 6-24 H Creatinine (test code = 2.17 mg/dL 0.76-1.27 H 2160-0) eGFR If NonAfricn Am (test 35 mL/min/1.73 >59 L code = 04768-5) eGFR If Africn Am (test code = 41 mL/min/1.73 >59 L 16100-9) BUN/Creatinine Ratio (test 23 9-20 H code = 3097-3) Sodium (test code = 2951-2) 137 mmol/L 134-144 Potassium (test code = 2823-3) 4.9 mmol/L 3.5-5.2 Chloride (test code = 2075-0) 93 mmol/L 96-106 L Carbon Dioxide, Total (test 29 mmol/L 20-29 code = 2028-9) Calcium (test code = 81996-8) 9.5 mg/dL 8.7-10.2 Protein, Total (test code = 6.5 g/dL 6.0-8.5 2885-2) Albumin (test code = 1751-7) 3.6 g/dL 4.0-5.0 L Globulin, Total (test code = 2.9 g/dL 1.5-4.5 54883-6) A/G Ratio (test code = 1759-0) 1.2 1.2-2.2 Bilirubin, Total (test code = 0.5 mg/dL 0.0-1.2 1974-2) Alkaline Phosphatase (test 103 IU/L 39-117 code = 6768-6) AST (SGOT) (test code = 20 IU/L 0-40 1920-8) ALT (SGPT) (test code = 30 IU/L 0-44 1742-6) [facility] Description: Lipid [id number] 03:19:00 Test Item Value Reference Range Interpretation Comments Cholesterol, Total (test code = 231 mg/dL 100-199 H 2092-3) Triglycerides (test code = 2571-8) 215 mg/dL 0-149 H HDL Cholesterol (test code = 34 mg/dL >39 L 2084-9) VLDL Cholesterol Renuka (test code = 43 mg/dL 5-40 H 23312-0) LDL Cholesterol Calc (test code = 154 mg/dL 0-99 H 48702-5) Comment: (test code = 47084-7) [facility] Description: Comp. Metabolic Panel (2019-11-10 03:19:00 Test Item Value Reference Range Interpretation Comments Glucose (test code = 2345-7) 439 mg/dL 65-99 H BUN (test code = 3094-0) 49 mg/dL 6-24 H Creatinine (test code = 2.17 mg/dL 0.76-1.27 H 2160-0) eGFR If NonAfricn Am (test 35 mL/min/1.73 >59 L code = 20858-4) eGFR If Africn Am (test code = 41 mL/min/1.73 >59 L 98763-5) BUN/Creatinine Ratio (test 23 9-20 H code = 3097-3) Sodium (test code = 2951-2) 137 mmol/L 134-144 Potassium (test code = 2823-3) 4.9 mmol/L 3.5-5.2 Chloride (test code = 2075-0) 93 mmol/L 96-106 L Carbon Dioxide, Total (test 29 mmol/L 20-29 code = 8-9) Calcium (test code = 10791-8) 9.5 mg/dL 8.7-10.2 Protein, Total (test code = 6.5 g/dL 6.0-8.5 2885-2) Albumin (test code = 1751-7) 3.6 g/dL 4.0-5.0 L Globulin, Total (test code = 2.9 g/dL 1.5-4.5 63353-6) A/G Ratio (test code = 1759-0) 1.2 1.2-2.2 Bilirubin, Total (test code = 0.5 mg/dL 0.0-1.2 1974-2) Alkaline Phosphatase (test 103 IU/L 39-117 code = 6768-6) AST (SGOT) (test code = 20 IU/L 0-40 1920-8) ALT (SGPT) (test code = 30 IU/L 0-44 1742-6) [facility] Description: Lipid [id number] 03:19:00 Test Item Value Reference Range Interpretation Comments Cholesterol, Total (test code = 231 mg/dL 100-199 H 2092-3) Triglycerides (test code = 2571-8) 215 mg/dL 0-149 H HDL Cholesterol (test code = 34 mg/dL >39 L 2084-9) VLDL Cholesterol Renuka (test code = 43 mg/dL 5-40 H 43933-1) LDL Cholesterol Calc (test code = 154 mg/dL 0-99 H 76802-0) Comment: (test code = 78175-1) [facility] Description: Comp. Metabolic Panel (14)2019-11-10 03:19:00 Test Item Value Reference Range Interpretation Comments Glucose (test code = 2345-7) 439 mg/dL 65-99 H BUN (test code = 3094-0) 49 mg/dL 6-24 H Creatinine (test code = 2.17 mg/dL 0.76-1.27 H 2160-0) eGFR If NonAfricn Am (test 35 mL/min/1.73 >59 L code = 77423-1) eGFR If Africn Am (test code = 41 mL/min/1.73 >59 L 74743-5) BUN/Creatinine Ratio (test 23 9-20 H code = 3097-3) Sodium (test code = 2951-2) 137 mmol/L 134-144 Potassium (test code = 2823-3) 4.9 mmol/L 3.5-5.2 Chloride (test code = 2075-0) 93 mmol/L 96-106 L Carbon Dioxide, Total (test 29 mmol/L 20-29 code = 8-9) Calcium (test code = 86163-8) 9.5 mg/dL 8.7-10.2 Protein, Total (test code = 6.5 g/dL 6.0-8.5 2885-2) Albumin (test code = 1751-7) 3.6 g/dL 4.0-5.0 L Globulin, Total (test code = 2.9 g/dL 1.5-4.5 76482-0) A/G Ratio (test code = 1759-0) 1.2 1.2-2.2 Bilirubin, Total (test code = 0.5 mg/dL 0.0-1.2 1975-2) Alkaline Phosphatase (test 103 IU/L 39-117 code = 6768-6) AST (SGOT) (test code = 20 IU/L 0-40 0-8) ALT (SGPT) (test code = 30 IU/L 0-44 2-6) [facility] Description: Lipid [id number] 03:19:00 Test Item Value Reference Range Interpretation Comments Cholesterol, Total (test code = 231 mg/dL 100-199 H 3-3) Triglycerides (test code = 2571-8) 215 mg/dL 0-149 H HDL Cholesterol (test code = 34 mg/dL >39 L 5-9) VLDL Cholesterol Renuka (test code = 43 mg/dL 5-40 H 87317-8) LDL Cholesterol Calc (test code = 154 mg/dL 0-99 H 55011-1) Comment: (test code = 18667-0) [facility] Description: Comp. Metabolic Panel (14)2019-11-10 03:19:00 Test Item Value Reference Range Interpretation Comments Glucose (test code = 2345-7) 439 mg/dL 65-99 H BUN (test code = 3094-0) 49 mg/dL 6-24 H Creatinine (test code = 2.17 mg/dL 0.76-1.27 H 2160-0) eGFR If NonAfricn Am (test 35 mL/min/1.73 >59 L code = 43095-6) eGFR If Africn Am (test code = 41 mL/min/1.73 >59 L 72490-8) BUN/Creatinine Ratio (test 23 9-20 H code = 3097-3) Sodium (test code = 2951-2) 137 mmol/L 134-144 Potassium (test code = 2823-3) 4.9 mmol/L 3.5-5.2 Chloride (test code = 2075-0) 93 mmol/L 96-106 L Carbon Dioxide, Total (test 29 mmol/L 20-29 code = 8-9) Calcium (test code = 09137-6) 9.5 mg/dL 8.7-10.2 Protein, Total (test code = 6.5 g/dL 6.0-8.5 2885-2) Albumin (test code = 1751-7) 3.6 g/dL 4.0-5.0 L Globulin, Total (test code = 2.9 g/dL 1.5-4.5 92621-9) A/G Ratio (test code = 1759-0) 1.2 1.2-2.2 Bilirubin, Total (test code = 0.5 mg/dL 0.0-1.2 1975-2) Alkaline Phosphatase (test 103 IU/L 39-117 code = 6768-6) AST (SGOT) (test code = 20 IU/L 0-40 1920-8) ALT (SGPT) (test code = 30 IU/L 0-44 1742-6) [facility] Description: Lipid [id number] 03:19:00 Test Item Value Reference Range Interpretation Comments Cholesterol, Total (test code = 231 mg/dL 100-199 H 2093-3) Triglycerides (test code = 2571-8) 215 mg/dL 0-149 H HDL Cholesterol (test code = 34 mg/dL >39 L 5-9) VLDL Cholesterol Renuka (test code = 43 mg/dL 5-40 H 03894-7) LDL Cholesterol Calc (test code = 154 mg/dL 0-99 H 16631-1) Comment: (test code = 29424-2) [employer] Description: Comp. Metabolic Panel (14)2019-11-10 03:19:00 Test Item Value Reference Range Interpretation Comments Glucose (test code = 2345-7) 439 mg/dL 65-99 H BUN (test code = 3094-0) 49 mg/dL 6-24 H Creatinine (test code = 2.17 mg/dL 0.76-1.27 H 2160-0) eGFR If NonAfricn Am (test 35 mL/min/1.73 >59 L code = 95226-0) eGFR If Africn Am (test code = 41 mL/min/1.73 >59 L 29097-4) BUN/Creatinine Ratio (test 23 9-20 H code = 3097-3) Sodium (test code = 2951-2) 137 mmol/L 134-144 Potassium (test code = 2823-3) 4.9 mmol/L 3.5-5.2 Chloride (test code = 2075-0) 93 mmol/L 96-106 L Carbon Dioxide, Total (test 29 mmol/L 20-29 code = 8-9) Calcium (test code = 85207-4) 9.5 mg/dL 8.7-10.2 Protein, Total (test code = 6.5 g/dL 6.0-8.5 2885-2) Albumin (test code = 1751-7) 3.6 g/dL 4.0-5.0 L Globulin, Total (test code = 2.9 g/dL 1.5-4.5 55865-8) A/G Ratio (test code = 1759-0) 1.2 1.2-2.2 Bilirubin, Total (test code = 0.5 mg/dL 0.0-1.2 1974-2) Alkaline Phosphatase (test 103 IU/L 39-117 code = 6768-6) AST (SGOT) (test code = 20 IU/L 0-40 1920-8) ALT (SGPT) (test code = 30 IU/L 0-44 1742-6) [employer] Description: Lipid [id number] 03:19:00 Test Item Value Reference Range Interpretation Comments Cholesterol, Total (test code = 231 mg/dL 100-199 H 2093-3) Triglycerides (test code = 2571-8) 215 mg/dL 0-149 H HDL Cholesterol (test code = 34 mg/dL >39 L 5-9) VLDL Cholesterol Renuka (test code = 43 mg/dL 5-40 H 87800-3) LDL Cholesterol Calc (test code = 154 mg/dL 0-99 H 68681-7) Comment: (test code = 33117-2) [employer] Description: Comp. Metabolic Panel (14)2019-11-10 03:19:00 Test Item Value Reference Range Interpretation Comments Glucose (test code = 2345-7) 439 mg/dL 65-99 H BUN (test code = 3094-0) 49 mg/dL 6-24 H Creatinine (test code = 2.17 mg/dL 0.76-1.27 H 2160-0) eGFR If NonAfricn Am (test 35 mL/min/1.73 >59 L code = 65197-2) eGFR If Africn Am (test code = 41 mL/min/1.73 >59 L 37074-3) BUN/Creatinine Ratio (test 23 9-20 H code = 3097-3) Sodium (test code = 2951-2) 137 mmol/L 134-144 Potassium (test code = 2823-3) 4.9 mmol/L 3.5-5.2 Chloride (test code = 2075-0) 93 mmol/L 96-106 L Carbon Dioxide, Total (test 29 mmol/L 20-29 code = 8-9) Calcium (test code = 19901-2) 9.5 mg/dL 8.7-10.2 Protein, Total (test code = 6.5 g/dL 6.0-8.5 2885-2) Albumin (test code = 1751-7) 3.6 g/dL 4.0-5.0 L Globulin, Total (test code = 2.9 g/dL 1.5-4.5 71687-0) A/G Ratio (test code = 1759-0) 1.2 1.2-2.2 Bilirubin, Total (test code = 0.5 mg/dL 0.0-1.2 1975-2) Alkaline Phosphatase (test 103 IU/L 39-117 code = 6768-6) AST (SGOT) (test code = 20 IU/L 0-40 1920-8) ALT (SGPT) (test code = 30 IU/L 0-44 1742-6) [facility] Description: Lipid [id number] 03:19:00 Test Item Value Reference Range Interpretation Comments Cholesterol, Total (test code = 231 mg/dL 100-199 H 2093-3) Triglycerides (test code = 2571-8) 215 mg/dL 0-149 H HDL Cholesterol (test code = 34 mg/dL >39 L 5-9) VLDL Cholesterol Renuka (test code = 43 mg/dL 5-40 H 34231-5) LDL Cholesterol Calc (test code = 154 mg/dL 0-99 H 67830-3) Comment: (test code = 32703-4) [facility] Description: Comp. Metabolic Panel (14)2019-11-10 03:19:00 Test Item Value Reference Range Interpretation Comments Glucose (test code = 2345-7) 439 mg/dL 65-99 H BUN (test code = 3094-0) 49 mg/dL 6-24 H Creatinine (test code = 2.17 mg/dL 0.76-1.27 H 2160-0) eGFR If NonAfricn Am (test 35 mL/min/1.73 >59 L code = 72203-1) eGFR If Africn Am (test code = 41 mL/min/1.73 >59 L 41817-0) BUN/Creatinine Ratio (test 23 9-20 H code = 3097-3) Sodium (test code = 2951-2) 137 mmol/L 134-144 Potassium (test code = 2823-3) 4.9 mmol/L 3.5-5.2 Chloride (test code = 2075-0) 93 mmol/L 96-106 L Carbon Dioxide, Total (test 29 mmol/L 20-29 code = 2027-9) Calcium (test code = 28081-0) 9.5 mg/dL 8.7-10.2 Protein, Total (test code = 6.5 g/dL 6.0-8.5 2885-2) Albumin (test code = 1751-7) 3.6 g/dL 4.0-5.0 L Globulin, Total (test code = 2.9 g/dL 1.5-4.5 72331-5) A/G Ratio (test code = 1759-0) 1.2 1.2-2.2 Bilirubin, Total (test code = 0.5 mg/dL 0.0-1.2 1974-2) Alkaline Phosphatase (test 103 IU/L 39-117 code = 6768-6) AST (SGOT) (test code = 20 IU/L 0-40 1920-8) ALT (SGPT) (test code = 30 IU/L 0-44 1742-6) [employer] Description: Lipid [id number] 03:19:00 Test Item Value Reference Range Interpretation Comments Cholesterol, Total (test code = 231 mg/dL 100-199 H 2092-3) Triglycerides (test code = 2571-8) 215 mg/dL 0-149 H HDL Cholesterol (test code = 34 mg/dL >39 L 2084-9) VLDL Cholesterol Renuka (test code = 43 mg/dL 5-40 H 08675-1) LDL Cholesterol Calc (test code = 154 mg/dL 0-99 H 50837-6) Comment: (test code = 32259-5) [employer] Description: Comp. Metabolic Panel (14)2019-11-10 03:19:00 Test Item Value Reference Range Interpretation Comments Glucose (test code = 2345-7) 439 mg/dL 65-99 H BUN (test code = 3094-0) 49 mg/dL 6-24 H Creatinine (test code = 2.17 mg/dL 0.76-1.27 H 2160-0) eGFR If NonAfricn Am (test 35 mL/min/1.73 >59 L code = 52378-0) eGFR If Africn Am (test code = 41 mL/min/1.73 >59 L 54136-6) BUN/Creatinine Ratio (test 23 9-20 H code = 3097-3) Sodium (test code = 2951-2) 137 mmol/L 134-144 Potassium (test code = 2823-3) 4.9 mmol/L 3.5-5.2 Chloride (test code = 2075-0) 93 mmol/L 96-106 L Carbon Dioxide, Total (test 29 mmol/L 20-29 code = 8-9) Calcium (test code = 40752-8) 9.5 mg/dL 8.7-10.2 Protein, Total (test code = 6.5 g/dL 6.0-8.5 2885-2) Albumin (test code = 1751-7) 3.6 g/dL 4.0-5.0 L Globulin, Total (test code = 2.9 g/dL 1.5-4.5 70418-7) A/G Ratio (test code = 1759-0) 1.2 1.2-2.2 Bilirubin, Total (test code = 0.5 mg/dL 0.0-1.2 1975-2) Alkaline Phosphatase (test 103 IU/L 39-117 code = 6768-6) AST (SGOT) (test code = 20 IU/L 0-40 1920-8) ALT (SGPT) (test code = 30 IU/L 0-44 1742-6) [facility] Description: Lipid [id number] 03:19:00 Test Item Value Reference Range Interpretation Comments Cholesterol, Total (test code = 231 mg/dL 100-199 H 2092-3) Triglycerides (test code = 2571-8) 215 mg/dL 0-149 H HDL Cholesterol (test code = 34 mg/dL >39 L 5-9) VLDL Cholesterol Renuka (test code = 43 mg/dL 5-40 H 07827-7) LDL Cholesterol Calc (test code = 154 mg/dL 0-99 H 40694-9) Comment: (test code = 63246-5) [facility] Description: Comp. Metabolic Panel (2019-11-10 03:19:00 Test Item Value Reference Range Interpretation Comments Glucose (test code = 2345-7) 439 mg/dL 65-99 H BUN (test code = 3094-0) 49 mg/dL 6-24 H Creatinine (test code = 2.17 mg/dL 0.76-1.27 H 2160-0) eGFR If NonAfricn Am (test 35 mL/min/1.73 >59 L code = 44898-1) eGFR If Africn Am (test code = 41 mL/min/1.73 >59 L 66859-1) BUN/Creatinine Ratio (test 23 9-20 H code = 3097-3) Sodium (test code = 2951-2) 137 mmol/L 134-144 Potassium (test code = 2823-3) 4.9 mmol/L 3.5-5.2 Chloride (test code = 2075-0) 93 mmol/L 96-106 L Carbon Dioxide, Total (test 29 mmol/L 20-29 code = 8-9) Calcium (test code = 78652-0) 9.5 mg/dL 8.7-10.2 Protein, Total (test code = 6.5 g/dL 6.0-8.5 2885-2) Albumin (test code = 1751-7) 3.6 g/dL 4.0-5.0 L Globulin, Total (test code = 2.9 g/dL 1.5-4.5 86623-2) A/G Ratio (test code = 1759-0) 1.2 1.2-2.2 Bilirubin, Total (test code = 0.5 mg/dL 0.0-1.2 1975-2) Alkaline Phosphatase (test 103 IU/L 39-117 code = 6768-6) AST (SGOT) (test code = 20 IU/L 0-40 1920-8) ALT (SGPT) (test code = 30 IU/L 0-44 1742-6) [facility] Description: Lipid [id number] 03:19:00 Test Item Value Reference Range Interpretation Comments Cholesterol, Total (test code = 231 mg/dL 100-199 H 2092-3) Triglycerides (test code = 2571-8) 215 mg/dL 0-149 H HDL Cholesterol (test code = 34 mg/dL >39 L 9) VLDL Cholesterol Renuka (test code = 43 mg/dL 5-40 H 52702-4) LDL Cholesterol Calc (test code = 154 mg/dL 0-99 H 57511-8) Comment: (test code = 91537-1) [employer] Description: Comp. Metabolic Panel (14)2019-11-10 03:19:00 Test Item Value Reference Range Interpretation Comments Glucose (test code = 2345-7) 439 mg/dL 65-99 H BUN (test code = 3094-0) 49 mg/dL 6-24 H Creatinine (test code = 2.17 mg/dL 0.76-1.27 H 2160-0) eGFR If NonAfricn Am (test 35 mL/min/1.73 >59 L code = 27069-5) eGFR If Africn Am (test code = 41 mL/min/1.73 >59 L 14802-9) BUN/Creatinine Ratio (test 23 9-20 H code = 3097-3) Sodium (test code = 2951-2) 137 mmol/L 134-144 Potassium (test code = 2823-3) 4.9 mmol/L 3.5-5.2 Chloride (test code = 2075-0) 93 mmol/L 96-106 L Carbon Dioxide, Total (test 29 mmol/L 20-29 code = 8-9) Calcium (test code = 29562-1) 9.5 mg/dL 8.7-10.2 Protein, Total (test code = 6.5 g/dL 6.0-8.5 2885-2) Albumin (test code = 1751-7) 3.6 g/dL 4.0-5.0 L Globulin, Total (test code = 2.9 g/dL 1.5-4.5 09169-4) A/G Ratio (test code = 1759-0) 1.2 1.2-2.2 Bilirubin, Total (test code = 0.5 mg/dL 0.0-1.2 1975-2) Alkaline Phosphatase (test 103 IU/L 39-117 code = 6768-6) AST (SGOT) (test code = 20 IU/L 0-40 1920-8) ALT (SGPT) (test code = 30 IU/L 0-44 1742-6) [employer] Description: Lipid [id number] 03:19:00 Test Item Value Reference Range Interpretation Comments Cholesterol, Total (test code = 231 mg/dL 100-199 H 3-3) Triglycerides (test code = 2571-8) 215 mg/dL 0-149 H HDL Cholesterol (test code = 34 mg/dL >39 L 5-9) VLDL Cholesterol Renuka (test code = 43 mg/dL 5-40 H 22787-0) LDL Cholesterol Calc (test code = 154 mg/dL 0-99 H 59072-4) Comment: (test code = 15929-0) [facility] Description: Comp. Metabolic Panel (14)2019-11-10 03:19:00 Test Item Value Reference Range Interpretation Comments Glucose (test code = 2345-7) 439 mg/dL 65-99 H BUN (test code = 3094-0) 49 mg/dL 6-24 H Creatinine (test code = 2.17 mg/dL 0.76-1.27 H 2160-0) eGFR If NonAfricn Am (test 35 mL/min/1.73 >59 L code = 00881-0) eGFR If Africn Am (test code = 41 mL/min/1.73 >59 L 72235-9) BUN/Creatinine Ratio (test 23 9-20 H code = 3097-3) Sodium (test code = 2951-2) 137 mmol/L 134-144 Potassium (test code = 2823-3) 4.9 mmol/L 3.5-5.2 Chloride (test code = 2075-0) 93 mmol/L 96-106 L Carbon Dioxide, Total (test 29 mmol/L 20-29 code = 2027-9) Calcium (test code = 09338-3) 9.5 mg/dL 8.7-10.2 Protein, Total (test code = 6.5 g/dL 6.0-8.5 2885-2) Albumin (test code = 1751-7) 3.6 g/dL 4.0-5.0 L Globulin, Total (test code = 2.9 g/dL 1.5-4.5 17292-5) A/G Ratio (test code = 1759-0) 1.2 1.2-2.2 Bilirubin, Total (test code = 0.5 mg/dL 0.0-1.2 1974-2) Alkaline Phosphatase (test 103 IU/L 39-117 code = 6768-6) AST (SGOT) (test code = 20 IU/L 0-40 1920-8) ALT (SGPT) (test code = 30 IU/L 0-44 1742-6) [employer] Description: Lipid [id number] 03:19:00 Test Item Value Reference Range Interpretation Comments Cholesterol, Total (test code = 231 mg/dL 100-199 H 2092-3) Triglycerides (test code = 2571-8) 215 mg/dL 0-149 H HDL Cholesterol (test code = 34 mg/dL >39 L 2084-9) VLDL Cholesterol Renuka (test code = 43 mg/dL 5-40 H 93430-1) LDL Cholesterol Calc (test code = 154 mg/dL 0-99 H 12311-4) Comment: (test code = 17409-4) [employer] Description: Comp. Metabolic Panel (14)2019-11-10 03:19:00 Test Item Value Reference Range Interpretation Comments Glucose (test code = 2345-7) 439 mg/dL 65-99 H BUN (test code = 3094-0) 49 mg/dL 6-24 H Creatinine (test code = 2.17 mg/dL 0.76-1.27 H 2160-0) eGFR If NonAfricn Am (test 35 mL/min/1.73 >59 L code = 89908-7) eGFR If Africn Am (test code = 41 mL/min/1.73 >59 L 33153-3) BUN/Creatinine Ratio (test 23 9-20 H code = 3097-3) Sodium (test code = 2951-2) 137 mmol/L 134-144 Potassium (test code = 2823-3) 4.9 mmol/L 3.5-5.2 Chloride (test code = 2075-0) 93 mmol/L 96-106 L Carbon Dioxide, Total (test 29 mmol/L 20-29 code = 2027-9) Calcium (test code = 28074-8) 9.5 mg/dL 8.7-10.2 Protein, Total (test code = 6.5 g/dL 6.0-8.5 2885-2) Albumin (test code = 1751-7) 3.6 g/dL 4.0-5.0 L Globulin, Total (test code = 2.9 g/dL 1.5-4.5 74922-9) A/G Ratio (test code = 1759-0) 1.2 1.2-2.2 Bilirubin, Total (test code = 0.5 mg/dL 0.0-1.2 1975-2) Alkaline Phosphatase (test 103 IU/L 39-117 code = 6768-6) AST (SGOT) (test code = 20 IU/L 0-40 1920-8) ALT (SGPT) (test code = 30 IU/L 0-44 1742-6) [employer] Description: Lipid [id number] 03:19:00 Test Item Value Reference Range Interpretation Comments Cholesterol, Total (test code = 231 mg/dL 100-199 H 2093-3) Triglycerides (test code = 2571-8) 215 mg/dL 0-149 H HDL Cholesterol (test code = 34 mg/dL >39 L 5-9) VLDL Cholesterol Renuka (test code = 43 mg/dL 5-40 H 61294-4) LDL Cholesterol Calc (test code = 154 mg/dL 0-99 H 73645-0) Comment: (test code = 31299-3) [employer] Description: Comp. Metabolic Panel ()2019-11-10 03:19:00 Test Item Value Reference Range Interpretation Comments Glucose (test code = 2345-7) 439 mg/dL 65-99 H BUN (test code = 3094-0) 49 mg/dL 6-24 H Creatinine (test code = 2.17 mg/dL 0.76-1.27 H 2160-0) eGFR If NonAfricn Am (test 35 mL/min/1.73 >59 L code = 18615-9) eGFR If Africn Am (test code = 41 mL/min/1.73 >59 L 53566-0) BUN/Creatinine Ratio (test 23 9-20 H code = 3097-3) Sodium (test code = 2951-2) 137 mmol/L 134-144 Potassium (test code = 2823-3) 4.9 mmol/L 3.5-5.2 Chloride (test code = 2075-0) 93 mmol/L 96-106 L Carbon Dioxide, Total (test 29 mmol/L 20-29 code = 8-9) Calcium (test code = 61357-1) 9.5 mg/dL 8.7-10.2 Protein, Total (test code = 6.5 g/dL 6.0-8.5 2885-2) Albumin (test code = 1751-7) 3.6 g/dL 4.0-5.0 L Globulin, Total (test code = 2.9 g/dL 1.5-4.5 69852-9) A/G Ratio (test code = 1759-0) 1.2 1.2-2.2 Bilirubin, Total (test code = 0.5 mg/dL 0.0-1.2 1975-2) Alkaline Phosphatase (test 103 IU/L 39-117 code = 6768-6) AST (SGOT) (test code = 20 IU/L 0-40 1920-8) ALT (SGPT) (test code = 30 IU/L 0-44 1742-6) [employer] Description: Lipid [id number] 03:19:00 Test Item Value Reference Range Interpretation Comments Cholesterol, Total (test code = 231 mg/dL 100-199 H 2093-3) Triglycerides (test code = 2571-8) 215 mg/dL 0-149 H HDL Cholesterol (test code = 34 mg/dL >39 L 2084-9) VLDL Cholesterol Renuka (test code = 43 mg/dL 5-40 H 12109-2) LDL Cholesterol Calc (test code = 154 mg/dL 0-99 H 09839-9) Comment: (test code = 93345-1) [employer] Description: Comp. Metabolic Panel (14)2019-11-10 03:19:00 Test Item Value Reference Range Interpretation Comments Glucose (test code = 2345-7) 439 mg/dL 65-99 H BUN (test code = 3094-0) 49 mg/dL 6-24 H Creatinine (test code = 2.17 mg/dL 0.76-1.27 H 2160-0) eGFR If NonAfricn Am (test 35 mL/min/1.73 >59 L code = 39159-7) eGFR If Africn Am (test code = 41 mL/min/1.73 >59 L 16565-5) BUN/Creatinine Ratio (test 23 9-20 H code = 3097-3) Sodium (test code = 2951-2) 137 mmol/L 134-144 Potassium (test code = 2823-3) 4.9 mmol/L 3.5-5.2 Chloride (test code = 2075-0) 93 mmol/L 96-106 L Carbon Dioxide, Total (test 29 mmol/L 20-29 code = 8-9) Calcium (test code = 56962-8) 9.5 mg/dL 8.7-10.2 Protein, Total (test code = 6.5 g/dL 6.0-8.5 2885-2) Albumin (test code = 1751-7) 3.6 g/dL 4.0-5.0 L Globulin, Total (test code = 2.9 g/dL 1.5-4.5 89980-7) A/G Ratio (test code = 1759-0) 1.2 1.2-2.2 Bilirubin, Total (test code = 0.5 mg/dL 0.0-1.2 1974-2) Alkaline Phosphatase (test 103 IU/L 39-117 code = 6768-6) AST (SGOT) (test code = 20 IU/L 0-40 1920-8) ALT (SGPT) (test code = 30 IU/L 0-44 1742-6) [facility] Description: Lipid [id number] 03:19:00 Test Item Value Reference Range Interpretation Comments Cholesterol, Total (test code = 231 mg/dL 100-199 H 2092-3) Triglycerides (test code = 2571-8) 215 mg/dL 0-149 H HDL Cholesterol (test code = 34 mg/dL >39 L 2084-9) VLDL Cholesterol Renuka (test code = 43 mg/dL 5-40 H 70607-0) LDL Cholesterol Calc (test code = 154 mg/dL 0-99 H 26337-5) Comment: (test code = 46640-4) [facility] Description: Comp. Metabolic Panel ()2019-11-10 03:19:00 Test Item Value Reference Range Interpretation Comments Glucose (test code = 2345-7) 439 mg/dL 65-99 H BUN (test code = 3094-0) 49 mg/dL 6-24 H Creatinine (test code = 2.17 mg/dL 0.76-1.27 H 2160-0) eGFR If NonAfricn Am (test 35 mL/min/1.73 >59 L code = 72398-7) eGFR If Africn Am (test code = 41 mL/min/1.73 >59 L 91647-8) BUN/Creatinine Ratio (test 23 9-20 H code = 3097-3) Sodium (test code = 2951-2) 137 mmol/L 134-144 Potassium (test code = 2823-3) 4.9 mmol/L 3.5-5.2 Chloride (test code = 2075-0) 93 mmol/L 96-106 L Carbon Dioxide, Total (test 29 mmol/L 20-29 code = 8-9) Calcium (test code = 39858-8) 9.5 mg/dL 8.7-10.2 Protein, Total (test code = 6.5 g/dL 6.0-8.5 2885-2) Albumin (test code = 1751-7) 3.6 g/dL 4.0-5.0 L Globulin, Total (test code = 2.9 g/dL 1.5-4.5 73086-6) A/G Ratio (test code = 1759-0) 1.2 1.2-2.2 Bilirubin, Total (test code = 0.5 mg/dL 0.0-1.2 1975-2) Alkaline Phosphatase (test 103 IU/L 39-117 code = 6768-6) AST (SGOT) (test code = 20 IU/L 0-40 1920-8) ALT (SGPT) (test code = 30 IU/L 0-44 1742-6) [employer] [facility] Description: Lipid [id number] 03:19:00 Test Item Value Reference Range Interpretation Comments Cholesterol, Total (test code = 231 mg/dL 100-199 H 2092-3) Triglycerides (test code = 2571-8) 215 mg/dL 0-149 H HDL Cholesterol (test code = 34 mg/dL >39 L 2084-9) VLDL Cholesterol Renuka (test code = 43 mg/dL 5-40 H 03532-4) LDL Cholesterol Calc (test code = 154 mg/dL 0-99 H 21342-2) Comment: (test code = 42497-4) [facility] Description: Comp. Metabolic Panel ()2019-11-10 03:19:00 Test Item Value Reference Range Interpretation Comments Glucose (test code = 2345-7) 439 mg/dL 65-99 H BUN (test code = 3094-0) 49 mg/dL 6-24 H Creatinine (test code = 2.17 mg/dL 0.76-1.27 H 2160-0) eGFR If NonAfricn Am (test 35 mL/min/1.73 >59 L code = 64637-3) eGFR If Africn Am (test code = 41 mL/min/1.73 >59 L 92818-8) BUN/Creatinine Ratio (test 23 9-20 H code = 3097-3) Sodium (test code = 2951-2) 137 mmol/L 134-144 Potassium (test code = 2823-3) 4.9 mmol/L 3.5-5.2 Chloride (test code = 2075-0) 93 mmol/L 96-106 L Carbon Dioxide, Total (test 29 mmol/L 20-29 code = 8-9) Calcium (test code = 39875-4) 9.5 mg/dL 8.7-10.2 Protein, Total (test code = 6.5 g/dL 6.0-8.5 2885-2) Albumin (test code = 1751-7) 3.6 g/dL 4.0-5.0 L Globulin, Total (test code = 2.9 g/dL 1.5-4.5 27510-1) A/G Ratio (test code = 1759-0) 1.2 1.2-2.2 Bilirubin, Total (test code = 0.5 mg/dL 0.0-1.2 1975-2) Alkaline Phosphatase (test 103 IU/L 39-117 code = 6768-6) AST (SGOT) (test code = 20 IU/L 0-40 0-8) ALT (SGPT) (test code = 30 IU/L 0-44 2-6) [facility] Description: Lipid [id number] 03:19:00 Test Item Value Reference Range Interpretation Comments Cholesterol, Total (test code = 231 mg/dL 100-199 H 3-3) Triglycerides (test code = 2571-8) 215 mg/dL 0-149 H HDL Cholesterol (test code = 34 mg/dL >39 L 5-9) VLDL Cholesterol Renuka (test code = 43 mg/dL 5-40 H 34841-4) LDL Cholesterol Calc (test code = 154 mg/dL 0-99 H 09470-3) Comment: (test code = 09669-3) [facility] Description: Comp. Metabolic Panel (2019-11-10 03:19:00 Test Item Value Reference Range Interpretation Comments Glucose (test code = 2345-7) 439 mg/dL 65-99 H BUN (test code = 3094-0) 49 mg/dL 6-24 H Creatinine (test code = 2.17 mg/dL 0.76-1.27 H 2160-0) eGFR If NonAfricn Am (test 35 mL/min/1.73 >59 L code = 57061-9) eGFR If Africn Am (test code = 41 mL/min/1.73 >59 L 15115-2) BUN/Creatinine Ratio (test 23 9-20 H code = 3097-3) Sodium (test code = 2951-2) 137 mmol/L 134-144 Potassium (test code = 2823-3) 4.9 mmol/L 3.5-5.2 Chloride (test code = 2075-0) 93 mmol/L 96-106 L Carbon Dioxide, Total (test 29 mmol/L 20-29 code = 8-9) Calcium (test code = 53925-2) 9.5 mg/dL 8.7-10.2 Protein, Total (test code = 6.5 g/dL 6.0-8.5 2885-2) Albumin (test code = 1751-7) 3.6 g/dL 4.0-5.0 L Globulin, Total (test code = 2.9 g/dL 1.5-4.5 73576-5) A/G Ratio (test code = 1759-0) 1.2 1.2-2.2 Bilirubin, Total (test code = 0.5 mg/dL 0.0-1.2 1974-2) Alkaline Phosphatase (test 103 IU/L 39-117 code = 6768-6) AST (SGOT) (test code = 20 IU/L 0-40 1920-8) ALT (SGPT) (test code = 30 IU/L 0-44 1742-6) [employer] Description: Lipid [id number] 03:19:00 Test Item Value Reference Range Interpretation Comments Cholesterol, Total (test code = 231 mg/dL 100-199 H 2093-3) Triglycerides (test code = 2571-8) 215 mg/dL 0-149 H HDL Cholesterol (test code = 34 mg/dL >39 L 2085-9) VLDL Cholesterol Renuka (test code = 43 mg/dL 5-40 H 41932-5) LDL Cholesterol Calc (test code = 154 mg/dL 0-99 H 09111-7) Comment: (test code = 97796-2) [employer] Description: Comp. Metabolic Panel (14)2019-11-10 03:19:00 Test Item Value Reference Range Interpretation Comments Glucose (test code = 2345-7) 439 mg/dL 65-99 H BUN (test code = 3094-0) 49 mg/dL 6-24 H Creatinine (test code = 2.17 mg/dL 0.76-1.27 H 2160-0) eGFR If NonAfricn Am (test 35 mL/min/1.73 >59 L code = 71877-7) eGFR If Africn Am (test code = 41 mL/min/1.73 >59 L 01960-2) BUN/Creatinine Ratio (test 23 9-20 H code = 3097-3) Sodium (test code = 2951-2) 137 mmol/L 134-144 Potassium (test code = 2823-3) 4.9 mmol/L 3.5-5.2 Chloride (test code = 2075-0) 93 mmol/L 96-106 L Carbon Dioxide, Total (test 29 mmol/L 20-29 code = 8-9) Calcium (test code = 79098-4) 9.5 mg/dL 8.7-10.2 Protein, Total (test code = 6.5 g/dL 6.0-8.5 2885-2) Albumin (test code = 1751-7) 3.6 g/dL 4.0-5.0 L Globulin, Total (test code = 2.9 g/dL 1.5-4.5 18653-0) A/G Ratio (test code = 1759-0) 1.2 1.2-2.2 Bilirubin, Total (test code = 0.5 mg/dL 0.0-1.2 1974-2) Alkaline Phosphatase (test 103 IU/L 39-117 code = 6768-6) AST (SGOT) (test code = 20 IU/L 0-40 1920-8) ALT (SGPT) (test code = 30 IU/L 0-44 1742-6) [employer] Description: Lipid [id number] 03:19:00 Test Item Value Reference Range Interpretation Comments Cholesterol, Total (test code = 231 mg/dL 100-199 H 2093-3) Triglycerides (test code = 2571-8) 215 mg/dL 0-149 H HDL Cholesterol (test code = 34 mg/dL >39 L 2084-9) VLDL Cholesterol Renuka (test code = 43 mg/dL 5-40 H 38077-5) LDL Cholesterol Calc (test code = 154 mg/dL 0-99 H 85778-1) Comment: (test code = 64071-6) [employer] Description: Comp. Metabolic Panel (14)2019-11-10 03:19:00 Test Item Value Reference Range Interpretation Comments Glucose (test code = 2345-7) 439 mg/dL 65-99 H BUN (test code = 3094-0) 49 mg/dL 6-24 H Creatinine (test code = 2.17 mg/dL 0.76-1.27 H 2160-0) eGFR If NonAfricn Am (test 35 mL/min/1.73 >59 L code = 71394-8) eGFR If Africn Am (test code = 41 mL/min/1.73 >59 L 72281-6) BUN/Creatinine Ratio (test 23 9-20 H code = 3097-3) Sodium (test code = 2951-2) 137 mmol/L 134-144 Potassium (test code = 2823-3) 4.9 mmol/L 3.5-5.2 Chloride (test code = 2075-0) 93 mmol/L 96-106 L Carbon Dioxide, Total (test 29 mmol/L 20-29 code = 8-9) Calcium (test code = 47281-9) 9.5 mg/dL 8.7-10.2 Protein, Total (test code = 6.5 g/dL 6.0-8.5 2885-2) Albumin (test code = 1751-7) 3.6 g/dL 4.0-5.0 L Globulin, Total (test code = 2.9 g/dL 1.5-4.5 01321-6) A/G Ratio (test code = 1759-0) 1.2 1.2-2.2 Bilirubin, Total (test code = 0.5 mg/dL 0.0-1.2 1975-2) Alkaline Phosphatase (test 103 IU/L 39-117 code = 6768-6) AST (SGOT) (test code = 20 IU/L 0-40 1920-8) ALT (SGPT) (test code = 30 IU/L 0-44 1742-6) [facility] Description: Lipid [id number] 03:19:00 Test Item Value Reference Range Interpretation Comments Cholesterol, Total (test code = 231 mg/dL 100-199 H 2093-3) Triglycerides (test code = 2571-8) 215 mg/dL 0-149 H HDL Cholesterol (test code = 34 mg/dL >39 L 2085-9) VLDL Cholesterol Renuka (test code = 43 mg/dL 5-40 H 05845-6) LDL Cholesterol Calc (test code = 154 mg/dL 0-99 H 91995-7) Comment: (test code = 86470-9) [facility] NON [id number] 23:44:00Reason for exam:- >SHORTNESS OF BREATHReason for [...] pneumothorax. Osseous structures are grossly unremarkable. Signed: Shaeffer, Kassi MDReport Verified Date/Time: 07/15/2019 23:44:04 B-TYPE NATRIURETIC FACTOR (BNP)2019-07-15 23:19:00 Test Item Value Reference Range Interpretation Comments B-TYPE NATRIURETIC PEPTIDE (BEAKER) 482 pg/mL 0-100 H (test code = 700) [facility] ID - LACIE BTROPONIN [id number] 23:17:00 Test Item Value Reference Range Interpretation [...] failure, acidosis, acute neurological disease, and persistent tachyarrhythmia.C[facility]cer ID - LACIE BCOMPREHENSIVE METABOLIC [id number] 23:11:00 Test Item Value Reference Range Interpretation [...] S NOT APPLICABLE FOR DIALYSIS PATIEN TS. [facility] Icer ID - LACIE BCBC W/PLT COUNT & AUTO [id number] 22:51:00 Test Item Value Reference Range Interpretation [...] = 2801) Panel Description: Hemoglobin A1c/Hemoglobin.total in [id number] 09:26:00 Test Item Value Reference Range Interpretation Comments Hemoglobin A1c (test code 10.1 % 4.8-5.6 H = 4548-4) . Prediabetes: 5. 7 - 6.4 Diabete s: >6.4 Glycemi c control for niall lts with diabetes: <7.0

P erforme d by:
[facility] ([place])

[facility]: Hemoglobin A1c/Hemoglobin.total in Blood 2019-07-04 09:26:00 Test Item Value Reference Range Interpretation Comments Hemoglobin A1c (test code 10.1 % 4.8-5.6 H = 4548-4) . Prediabetes: 5. 7 - 6.4 Diabete s: >6.4 Glycemi c control for niall lts with diabetes: <7.0

P erforme d by:
[facility] ([facility])

[facility] Description: Hemoglobin A1c/Hemoglobin.total in Blood 2019-07-04 09:26:00 Test Item Value Reference Range Interpretation Comments Hemoglobin A1c (test code 10.1 % 4.8-5.6 H = 4548-4) . Prediabetes: 5. 7 - 6.4 Diabete s: >6.4 Glycemi c control for niall lts with diabetes: <7.0

P erforme d by:
[facility] ([facility])

[facility] Description: Hemoglobin A1c/Hemoglobin.total in Blood 2019-07-04 09:26:00 Test Item Value Reference Range Interpretation Comments Hemoglobin A1c (test code 10.1 % 4.8-5.6 H = 4548-4) . Prediabetes: 5. 7 - 6.4 Diabete s: >6.4 Glycemi c control for niall lts with diabetes: <7.0

P erforme d by:
[facility] ([facility])

[facility] Description: Hemoglobin A1c/Hemoglobin.total in Blood 2019-07-04 09:26:00 Test Item Value Reference Range Interpretation Comments Hemoglobin A1c (test code 10.1 % 4.8-5.6 H = 4548-4) . Prediabetes: 5. 7 - 6.4 Diabete s: >6.4 Glycemi c control for niall lts with diabetes: <7.0

P erforme d by:
[facility] ([place])

[facility] Description: Hemoglobin A1c/Hemoglobin.total in Blood 2019-07-04 09:26:00 Test Item Value Reference Range Interpretation Comments Hemoglobin A1c (test code 10.1 % 4.8-5.6 H = 4548-4) . Prediabetes: 5. 7 - 6.4 Diabete s: >6.4 Glycemi c control for niall lts with diabetes: <7.0

P erforme d by:
[facility] ([place])

[facility] Description: Hemoglobin A1c/Hemoglobin.total in Blood 2019-07-04 09:26:00 Test Item Value Reference Range Interpretation Comments Hemoglobin A1c (test code 10.1 % 4.8-5.6 H = 4548-4) . Prediabetes: 5. 7 - 6.4 Diabete s: >6.4 Glycemi c control for niall lts with diabetes: <7.0

P erforme d by:
[facility] ([facility])

[facility] Description: Hemoglobin A1c/Hemoglobin.total in Blood 2019-07-04 09:26:00 Test Item Value Reference Range Interpretation Comments Hemoglobin A1c (test code 10.1 % 4.8-5.6 H = 4548-4) . Prediabetes: 5. 7 - 6.4 Diabete s: >6.4 Glycemi c control for niall lts with diabetes: <7.0

P erforme d by:
[facility] ([place])

[facility] [employer] Description: Hemoglobin A1c/Hemoglobin.total in Blood 2019-07-04 09:26:00 Test Item Value Reference Range Interpretation Comments Hemoglobin A1c (test code 10.1 % 4.8-5.6 H = 4548-4) . Prediabetes: 5. 7 - 6.4 Diabete s: >6.4 Glycemi c control for niall lts with diabetes: <7.0

P erforme d by:
[facility] ([place])

[facility] [employer] Description: Hemoglobin A1c/Hemoglobin.total in Blood 2019-07-04 09:26:00 Test Item Value Reference Range Interpretation Comments Hemoglobin A1c (test code 10.1 % 4.8-5.6 H = 4548-4) . Prediabetes: 5. 7 - 6.4 Diabete s: >6.4 Glycemi c control for niall lts with diabetes: <7.0

P erforme d by:
[facility] ([place])

[facility] [employer] Description: Hemoglobin A1c/Hemoglobin.total in Blood 2019-07-04 09:26:00 Test Item Value Reference Range Interpretation Comments Hemoglobin A1c (test code 10.1 % 4.8-5.6 H = 4548-4) . Prediabetes: 5. 7 - 6.4 Diabete s: >6.4 Glycemi c control for niall lts with diabetes: <7.0

P erforme d by:
[facility] ([place])

[facility] [employer] Description: Hemoglobin A1c/Hemoglobin.total in Blood 2019-07-04 09:26:00 Test Item Value Reference Range Interpretation Comments Hemoglobin A1c (test code 10.1 % 4.8-5.6 H = 4548-4) . Prediabetes: 5. 7 - 6.4 Diabete s: >6.4 Glycemi c control for niall lts with diabetes: <7.0

P erforme d by:
[facility] ([place])

[facility] [employer] Description: Hemoglobin A1c/Hemoglobin.total in Blood 2019-07-04 09:26:00 Test Item Value Reference Range Interpretation Comments Hemoglobin A1c (test code 10.1 % 4.8-5.6 H = 4548-4) . Prediabetes: 5. 7 - 6.4 Diabete s: >6.4 Glycemi c control for niall lts with diabetes: <7.0

P erforme d by:
[facility] ([place])

[facility] [employer] Description: Hemoglobin A1c/Hemoglobin.total in Blood 2019-07-04 09:26:00 Test Item Value Reference Range Interpretation Comments Hemoglobin A1c (test code 10.1 % 4.8-5.6 H = 4548-4) . Prediabetes: 5. 7 - 6.4 Diabete s: >6.4 Glycemi c control for niall lts with diabetes: <7.0

P erforme d by:
[facility] ([place])

[facility] [employer] Description: Hemoglobin A1c/Hemoglobin.total in Blood 2019-07-04 09:26:00 Test Item Value Reference Range Interpretation Comments Hemoglobin A1c (test code 10.1 % 4.8-5.6 H = 4548-4) . Prediabetes: 5. 7 - 6.4 Diabete s: >6.4 Glycemi c control for niall lts with diabetes: <7.0

P erforme d by:
[facility] ([place])

[facility] [employer] Description: Hemoglobin A1c/Hemoglobin.total in Blood 2019-07-04 09:26:00 Test Item Value Reference Range Interpretation Comments Hemoglobin A1c (test code 10.1 % 4.8-5.6 H = 4548-4) . Prediabetes: 5. 7 - 6.4 Diabete s: >6.4 Glycemi c control for niall lts with diabetes: <7.0

P erforme d by:
[facility] ([place])

[facility] [employer] Description: Hemoglobin A1c/Hemoglobin.total in Blood 2019-07-04 09:26:00 Test Item Value Reference Range Interpretation Comments Hemoglobin A1c (test code 10.1 % 4.8-5.6 H = 4548-4) . Prediabetes: 5. 7 - 6.4 Diabete s: >6.4 Glycemi c control for niall lts with diabetes: <7.0

P erforme d by:
[facility] ([place])

[facility] [employer] Description: Hemoglobin A1c/Hemoglobin.total in Blood 2019-07-04 09:26:00 Test Item Value Reference Range Interpretation Comments Hemoglobin A1c (test code 10.1 % 4.8-5.6 H = 4548-4) . Prediabetes: 5. 7 - 6.4 Diabete s: >6.4 Glycemi c control for niall lts with diabetes: <7.0

P erforme d by:
[facility] ([place])

[facility] [employer] Description: Hemoglobin A1c/Hemoglobin.total in Blood 2019-07-04 09:26:00 Test Item Value Reference Range Interpretation Comments Hemoglobin A1c (test code 10.1 % 4.8-5.6 H = 4548-4) . Prediabetes: 5. 7 - 6.4 Diabete s: >6.4 Glycemi c control for niall lts with diabetes: <7.0

P erforme d by:
[facility] ([place])

[employer] Description: Lipid [id number] 01:17:00 Test Item Value Reference Range Interpretation Comments Cholesterol, Total (test code = 241 mg/dL 100-199 H 2093-3) Triglycerides (test code = 2571-8) 57 mg/dL 0-149 HDL Cholesterol (test code = 37 mg/dL >39 L 2085-9) VLDL Cholesterol Renuka (test code = 11 mg/dL 5-40 04132-8) LDL Cholesterol Calc (test code = 193 mg/dL 0-99 H 37188-8) Comment: (test code = 85503-8) [employer] Description: Lipid [id number] 01:17:00 Test Item Value Reference Range Interpretation Comments Cholesterol, Total (test code = 241 mg/dL 100-199 H 2093-3) Triglycerides (test code = 2571-8) 57 mg/dL 0-149 HDL Cholesterol (test code = 37 mg/dL >39 L 2085-9) VLDL Cholesterol Renuka (test code = 11 mg/dL 5-40 06899-5) LDL Cholesterol Calc (test code = 193 mg/dL 0-99 H 73520-8) Comment: (test code = 46625-6) [employer] Description: Lipid [id number] 01:17:00 Test Item Value Reference Range Interpretation Comments Cholesterol, Total (test code = 241 mg/dL 100-199 H 2093-3) Triglycerides (test code = 2571-8) 57 mg/dL 0-149 HDL Cholesterol (test code = 37 mg/dL >39 L 2085-9) VLDL Cholesterol Renuka (test code = 11 mg/dL 5-40 53224-8) LDL Cholesterol Calc (test code = 193 mg/dL 0-99 H 53942-7) Comment: (test code = 12407-3) [employer] Description: Lipid [id number] 01:17:00 Test Item Value Reference Range Interpretation Comments Cholesterol, Total (test code = 241 mg/dL 100-199 H 2093-3) Triglycerides (test code = 2571-8) 57 mg/dL 0-149 HDL Cholesterol (test code = 37 mg/dL >39 L 2085-9) VLDL Cholesterol Renuka (test code = 11 mg/dL 5-40 79785-7) LDL Cholesterol Calc (test code = 193 mg/dL 0-99 H 51646-2) Comment: (test code = 11049-9) [employer] Description: Lipid [id number] 01:17:00 Test Item Value Reference Range Interpretation Comments Cholesterol, Total (test code = 241 mg/dL 100-199 H 2093-3) Triglycerides (test code = 2571-8) 57 mg/dL 0-149 HDL Cholesterol (test code = 37 mg/dL >39 L 2085-9) VLDL Cholesterol Renuka (test code = 11 mg/dL 5-40 45304-6) LDL Cholesterol Calc (test code = 193 mg/dL 0-99 H 67548-4) Comment: (test code = 78748-2) [employer] Description: Lipid [id number] 01:17:00 Test Item Value Reference Range Interpretation Comments Cholesterol, Total (test code = 241 mg/dL 100-199 H 2093-3) Triglycerides (test code = 2571-8) 57 mg/dL 0-149 HDL Cholesterol (test code = 37 mg/dL >39 L 2085-9) VLDL Cholesterol Renuka (test code = 11 mg/dL 5-40 62099-4) LDL Cholesterol Calc (test code = 193 mg/dL 0-99 H 14332-7) Comment: (test code = 21948-3) [employer] Description: Lipid [id number] 01:17:00 Test Item Value Reference Range Interpretation Comments Cholesterol, Total (test code = 241 mg/dL 100-199 H 2093-3) Triglycerides (test code = 2571-8) 57 mg/dL 0-149 HDL Cholesterol (test code = 37 mg/dL >39 L 2085-9) VLDL Cholesterol Renuka (test code = 11 mg/dL 5-40 06606-6) LDL Cholesterol Calc (test code = 193 mg/dL 0-99 H 78454-8) Comment: (test code = 98338-5) [employer] Description: Lipid [id number] 01:17:00 Test Item Value Reference Range Interpretation Comments Cholesterol, Total (test code = 241 mg/dL 100-199 H 2093-3) Triglycerides (test code = 2571-8) 57 mg/dL 0-149 HDL Cholesterol (test code = 37 mg/dL >39 L 2085-9) VLDL Cholesterol Renuka (test code = 11 mg/dL 5-40 15224-1) LDL Cholesterol Calc (test code = 193 mg/dL 0-99 H 91159-7) Comment: (test code = 59841-1) [employer] Description: Lipid [id number] 01:17:00 Test Item Value Reference Range Interpretation Comments Cholesterol, Total (test code = 241 mg/dL 100-199 H 2093-3) Triglycerides (test code = 2571-8) 57 mg/dL 0-149 HDL Cholesterol (test code = 37 mg/dL >39 L 2085-9) VLDL Cholesterol Renuka (test code = 11 mg/dL 5-40 36576-3) LDL Cholesterol Calc (test code = 193 mg/dL 0-99 H 97754-1) Comment: (test code = 85711-4) [employer] Description: Lipid [id number] 01:17:00 Test Item Value Reference Range Interpretation Comments Cholesterol, Total (test code = 241 mg/dL 100-199 H 2093-3) Triglycerides (test code = 2571-8) 57 mg/dL 0-149 HDL Cholesterol (test code = 37 mg/dL >39 L 2085-9) VLDL Cholesterol Renuka (test code = 11 mg/dL 5-40 75677-3) LDL Cholesterol Calc (test code = 193 mg/dL 0-99 H 24251-3) Comment: (test code = 14698-9) [employer] Description: Lipid [id number] 01:17:00 Test Item Value Reference Range Interpretation Comments Cholesterol, Total (test code = 241 mg/dL 100-199 H 2093-3) Triglycerides (test code = 2571-8) 57 mg/dL 0-149 HDL Cholesterol (test code = 37 mg/dL >39 L 2085-9) VLDL Cholesterol Renuka (test code = 11 mg/dL 5-40 37623-0) LDL Cholesterol Calc (test code = 193 mg/dL 0-99 H 10695-8) Comment: (test code = 52272-2) [employer] Description: Lipid [id number] 01:17:00 Test Item Value Reference Range Interpretation Comments Cholesterol, Total (test code = 241 mg/dL 100-199 H 2093-3) Triglycerides (test code = 2571-8) 57 mg/dL 0-149 HDL Cholesterol (test code = 37 mg/dL >39 L 2085-9) VLDL Cholesterol Renuka (test code = 11 mg/dL 5-40 24281-7) LDL Cholesterol Calc (test code = 193 mg/dL 0-99 H 77308-4) Comment: (test code = 20907-0) [employer] Description: Lipid [id number] 01:17:00 Test Item Value Reference Range Interpretation Comments Cholesterol, Total (test code = 241 mg/dL 100-199 H 2093-3) Triglycerides (test code = 2571-8) 57 mg/dL 0-149 HDL Cholesterol (test code = 37 mg/dL >39 L 2085-9) VLDL Cholesterol Renuka (test code = 11 mg/dL 5-40 26721-3) LDL Cholesterol Calc (test code = 193 mg/dL 0-99 H 49678-0) Comment: (test code = 46388-1) [employer] Description: Lipid [id number] 01:17:00 Test Item Value Reference Range Interpretation Comments Cholesterol, Total (test code = 241 mg/dL 100-199 H 2093-3) Triglycerides (test code = 2571-8) 57 mg/dL 0-149 HDL Cholesterol (test code = 37 mg/dL >39 L 2085-9) VLDL Cholesterol Renuka (test code = 11 mg/dL 5-40 61568-0) LDL Cholesterol Calc (test code = 193 mg/dL 0-99 H 81181-8) Comment: (test code = 40877-6) [employer] Description: Lipid [id number] 01:17:00 Test Item Value Reference Range Interpretation Comments Cholesterol, Total (test code = 241 mg/dL 100-199 H 2093-3) Triglycerides (test code = 2571-8) 57 mg/dL 0-149 HDL Cholesterol (test code = 37 mg/dL >39 L 2085-9) VLDL Cholesterol Renuka (test code = 11 mg/dL 5-40 28364-7) LDL Cholesterol Calc (test code = 193 mg/dL 0-99 H 24377-1) Comment: (test code = 57820-9) [employer] Description: Lipid [id number] 01:17:00 Test Item Value Reference Range Interpretation Comments Cholesterol, Total (test code = 241 mg/dL 100-199 H 2093-3) Triglycerides (test code = 2571-8) 57 mg/dL 0-149 HDL Cholesterol (test code = 37 mg/dL >39 L 2085-9) VLDL Cholesterol Renuka (test code = 11 mg/dL 5-40 12307-3) LDL Cholesterol Calc (test code = 193 mg/dL 0-99 H 11796-8) Comment: (test code = 00816-9) [employer] Description: Lipid [id number] 01:17:00 Test Item Value Reference Range Interpretation Comments Cholesterol, Total (test code = 241 mg/dL 100-199 H 2093-3) Triglycerides (test code = 2571-8) 57 mg/dL 0-149 HDL Cholesterol (test code = 37 mg/dL >39 L 2085-9) VLDL Cholesterol Renuka (test code = 11 mg/dL 5-40 99158-6) LDL Cholesterol Calc (test code = 193 mg/dL 0-99 H 41877-2) Comment: (test code = 53084-1) [employer] Description: Lipid [id number] 01:17:00 Test Item Value Reference Range Interpretation Comments Cholesterol, Total (test code = 241 mg/dL 100-199 H 2093-3) Triglycerides (test code = 2571-8) 57 mg/dL 0-149 HDL Cholesterol (test code = 37 mg/dL >39 L 2085-9) VLDL Cholesterol Renuka (test code = 11 mg/dL 5-40 16472-5) LDL Cholesterol Calc (test code = 193 mg/dL 0-99 H 72071-5) Comment: (test code = 10877-1) [employer] Description: Lipid [id number] 01:17:00 Test Item Value Reference Range Interpretation Comments Cholesterol, Total (test code = 241 mg/dL 100-199 H 2093-3) Triglycerides (test code = 2571-8) 57 mg/dL 0-149 HDL Cholesterol (test code = 37 mg/dL >39 L 2085-9) VLDL Cholesterol Renuka (test code = 11 mg/dL 5-40 34204-7) LDL Cholesterol Calc (test code = 193 mg/dL 0-99 H 22108-9) Comment: (test code = 68178-2) [employer] [facility] Description: Comp. Metabolic Panel (14)2019-07-04 01:03:00 Test Item Value Reference Range Interpretation Comments Glucose (test code = 2345-7) 262 mg/dL 65-99 H BUN (test code = 3094-0) 27 mg/dL 6-24 H Creatinine (test code = 1.46 mg/dL 0.76-1.27 H 2160-0) eGFR If NonAfricn Am (test 57 mL/min/1.73 >59 L code = 30758-5) eGFR If Africn Am (test code = 66 mL/min/1.73 >59 96926-3) BUN/Creatinine Ratio (test 18 -20 code = 3097-3) Sodium (test code = 2951-2) 140 mmol/L 134-144 Potassium (test code = 2823-3) 4.4 mmol/L 3.5-5.2 Chloride (test code = 2075-0) 106 mmol/L 96-106 Carbon Dioxide, Total (test 23 mmol/L 20-29 code = 8-9) Calcium (test code = 83986-7) 8.7 mg/dL 8.7-10.2 Protein, Total (test code = 5.3 g/dL 6.0-8.5 L 2885-2) Albumin (test code = 1751-7) 3.0 g/dL 4.0-5.0 L Globulin, Total (test code = 2.3 g/dL 1.5-4.5 70996-5) A/G Ratio (test code = 1759-0) 1.3 1.2-2.2 Bilirubin, Total (test code = 0.5 mg/dL 0.0-1.2 1975-2) Alkaline Phosphatase (test 95 IU/L 39-117 code = 6768-6) AST (SGOT) (test code = 16 IU/L 0-40 1920-8) ALT (SGPT) (test code = 23 IU/L 0-44 1742-6) [facility] Description: Comp. Metabolic Panel (14)2019-07-04 01:03:00 Test Item Value Reference Range Interpretation Comments Glucose (test code = 2345-7) 262 mg/dL 65-99 H BUN (test code = 3094-0) 27 mg/dL 6-24 H Creatinine (test code = 1.46 mg/dL 0.76-1.27 H 2160-0) eGFR If NonAfricn Am (test 57 mL/min/1.73 >59 L code = 70282-1) eGFR If Africn Am (test code = 66 mL/min/1.73 >59 44795-7) BUN/Creatinine Ratio (test 18 9-20 code = 3097-3) Sodium (test code = 2951-2) 140 mmol/L 134-144 Potassium (test code = 2823-3) 4.4 mmol/L 3.5-5.2 Chloride (test code = 2075-0) 106 mmol/L 96-106 Carbon Dioxide, Total (test 23 mmol/L 20-29 code = 2028-9) Calcium (test code = 66533-9) 8.7 mg/dL 8.7-10.2 Protein, Total (test code = 5.3 g/dL 6.0-8.5 L 2885-2) Albumin (test code = 1751-7) 3.0 g/dL 4.0-5.0 L Globulin, Total (test code = 2.3 g/dL 1.5-4.5 88413-7) A/G Ratio (test code = 1759-0) 1.3 1.2-2.2 Bilirubin, Total (test code = 0.5 mg/dL 0.0-1.2 1975-2) Alkaline Phosphatase (test 95 IU/L 39-117 code = 6768-6) AST (SGOT) (test code = 16 IU/L 0-40 1920-8) ALT (SGPT) (test code = 23 IU/L 0-44 1742-6) [facility] Description: Comp. Metabolic Panel (14)2019-07-04 01:03:00 Test Item Value Reference Range Interpretation Comments Glucose (test code = 2345-7) 262 mg/dL 65-99 H BUN (test code = 3094-0) 27 mg/dL 6-24 H Creatinine (test code = 1.46 mg/dL 0.76-1.27 H 2160-0) eGFR If NonAfricn Am (test 57 mL/min/1.73 >59 L code = 99925-9) eGFR If Africn Am (test code = 66 mL/min/1.73 >59 95847-8) BUN/Creatinine Ratio (test 12-16 code = 3097-3) Sodium (test code = 2951-2) 140 mmol/L 134-144 Potassium (test code = 2823-3) 4.4 mmol/L 3.5-5.2 Chloride (test code = 2075-0) 106 mmol/L 96-106 Carbon Dioxide, Total (test 23 mmol/L 20-29 code = 2028-9) Calcium (test code = 56075-9) 8.7 mg/dL 8.7-10.2 Protein, Total (test code = 5.3 g/dL 6.0-8.5 L 2885-2) Albumin (test code = 1751-7) 3.0 g/dL 4.0-5.0 L Globulin, Total (test code = 2.3 g/dL 1.5-4.5 41039-4) A/G Ratio (test code = 1759-0) 1.3 1.2-2.2 Bilirubin, Total (test code = 0.5 mg/dL 0.0-1.2 1975-2) Alkaline Phosphatase (test 95 IU/L 39-117 code = 6768-6) AST (SGOT) (test code = 16 IU/L 0-40 1920-8) ALT (SGPT) (test code = 23 IU/L 0-44 1742-6) [facility] Description: Comp. Metabolic Panel (14)2019-07-04 01:03:00 Test Item Value Reference Range Interpretation Comments Glucose (test code = 2345-7) 262 mg/dL 65-99 H BUN (test code = 3094-0) 27 mg/dL 6-24 H Creatinine (test code = 1.46 mg/dL 0.76-1.27 H 2160-0) eGFR If NonAfricn Am (test 57 mL/min/1.73 >59 L code = 31315-1) eGFR If Africn Am (test code = 66 mL/min/1.73 >59 49211-1) BUN/Creatinine Ratio (test 18 9-20 code = 3097-3) Sodium (test code = 2951-2) 140 mmol/L 134-144 Potassium (test code = 2823-3) 4.4 mmol/L 3.5-5.2 Chloride (test code = 2075-0) 106 mmol/L 96-106 Carbon Dioxide, Total (test 23 mmol/L 20-29 code = 8-9) Calcium (test code = 67811-1) 8.7 mg/dL 8.7-10.2 Protein, Total (test code = 5.3 g/dL 6.0-8.5 L 2885-2) Albumin (test code = 1751-7) 3.0 g/dL 4.0-5.0 L Globulin, Total (test code = 2.3 g/dL 1.5-4.5 98449-3) A/G Ratio (test code = 1759-0) 1.3 1.2-2.2 Bilirubin, Total (test code = 0.5 mg/dL 0.0-1.2 1975-2) Alkaline Phosphatase (test 95 IU/L 39-117 code = 6768-6) AST (SGOT) (test code = 16 IU/L 0-40 1920-8) ALT (SGPT) (test code = 23 IU/L 0-44 1742-6) [facility] Description: Comp. Metabolic Panel (14)2019-07-04 01:03:00 Test Item Value Reference Range Interpretation Comments Glucose (test code = 2345-7) 262 mg/dL 65-99 H BUN (test code = 3094-0) 27 mg/dL 6-24 H Creatinine (test code = 1.46 mg/dL 0.76-1.27 H 2160-0) eGFR If NonAfricn Am (test 57 mL/min/1.73 >59 L code = 77823-6) eGFR If Africn Am (test code = 66 mL/min/1.73 >59 28815-8) BUN/Creatinine Ratio (test 18 - code = 3097-3) Sodium (test code = 2951-2) 140 mmol/L 134-144 Potassium (test code = 2823-3) 4.4 mmol/L 3.5-5.2 Chloride (test code = 2075-0) 106 mmol/L 96-106 Carbon Dioxide, Total (test 23 mmol/L -29 code = 2027-9) Calcium (test code = 32240-2) 8.7 mg/dL 8.7-10.2 Protein, Total (test code = 5.3 g/dL 6.0-8.5 L 2885-2) Albumin (test code = 1751-7) 3.0 g/dL 4.0-5.0 L Globulin, Total (test code = 2.3 g/dL 1.5-4.5 20781-4) A/G Ratio (test code = 1759-0) 1.3 1.2-2.2 Bilirubin, Total (test code = 0.5 mg/dL 0.0-1.2 1975-2) Alkaline Phosphatase (test 95 IU/L 39-117 code = 6768-6) AST (SGOT) (test code = 16 IU/L 0-40 1920-8) ALT (SGPT) (test code = 23 IU/L 0-44 1742-6) [facility] Description: Comp. Metabolic Panel (14)2019-07-04 01:03:00 Test Item Value Reference Range Interpretation Comments Glucose (test code = 2345-7) 262 mg/dL 65-99 H BUN (test code = 3094-0) 27 mg/dL 6-24 H Creatinine (test code = 1.46 mg/dL 0.76-1.27 H 2160-0) eGFR If NonAfricn Am (test 57 mL/min/1.73 >59 L code = 18260-3) eGFR If Africn Am (test code = 66 mL/min/1.73 >59 05982-3) BUN/Creatinine Ratio (test 18 12-16 code = 3097-3) Sodium (test code = 2951-2) 140 mmol/L 134-144 Potassium (test code = 2823-3) 4.4 mmol/L 3.5-5.2 Chloride (test code = 2075-0) 106 mmol/L 96-106 Carbon Dioxide, Total (test 23 mmol/L -29 code = 8-9) Calcium (test code = 11420-3) 8.7 mg/dL 8.7-10.2 Protein, Total (test code = 5.3 g/dL 6.0-8.5 L 2885-2) Albumin (test code = 1751-7) 3.0 g/dL 4.0-5.0 L Globulin, Total (test code = 2.3 g/dL 1.5-4.5 30543-0) A/G Ratio (test code = 1759-0) 1.3 1.2-2.2 Bilirubin, Total (test code = 0.5 mg/dL 0.0-1.2 1975-2) Alkaline Phosphatase (test 95 IU/L 39-117 code = 6768-6) AST (SGOT) (test code = 16 IU/L 0-40 1920-8) ALT (SGPT) (test code = 23 IU/L 0-44 1742-6) [facility] Description: Comp. Metabolic Panel (14)2019-07-04 01:03:00 Test Item Value Reference Range Interpretation Comments Glucose (test code = 2345-7) 262 mg/dL 65-99 H BUN (test code = 3094-0) 27 mg/dL 6-24 H Creatinine (test code = 1.46 mg/dL 0.76-1.27 H 2160-0) eGFR If NonAfricn Am (test 57 mL/min/1.73 >59 L code = 17252-1) eGFR If Africn Am (test code = 66 mL/min/1.73 >59 39237-6) BUN/Creatinine Ratio (test 18 9-20 code = 3097-3) Sodium (test code = 2951-2) 140 mmol/L 134-144 Potassium (test code = 2823-3) 4.4 mmol/L 3.5-5.2 Chloride (test code = 2075-0) 106 mmol/L 96-106 Carbon Dioxide, Total (test 23 mmol/L 20-29 code = 2028-9) Calcium (test code = 63858-0) 8.7 mg/dL 8.7-10.2 Protein, Total (test code = 5.3 g/dL 6.0-8.5 L 2885-2) Albumin (test code = 1751-7) 3.0 g/dL 4.0-5.0 L Globulin, Total (test code = 2.3 g/dL 1.5-4.5 51518-7) A/G Ratio (test code = 1759-0) 1.3 1.2-2.2 Bilirubin, Total (test code = 0.5 mg/dL 0.0-1.2 1974-04) Alkaline Phosphatase (test 95 IU/L 39-117 code = 6768-6) AST (SGOT) (test code = 16 IU/L 0-40 1920-8) ALT (SGPT) (test code = 23 IU/L 0-44 1742-6) [facility] Description: Comp. Metabolic Panel (14)2019-07-04 01:03:00 Test Item Value Reference Range Interpretation Comments Glucose (test code = 2345-7) 262 mg/dL 65-99 H BUN (test code = 3094-0) 27 mg/dL 6-24 H Creatinine (test code = 1.46 mg/dL 0.76-1.27 H 2160-0) eGFR If NonAfricn Am (test 57 mL/min/1.73 >59 L code = 23752-7) eGFR If Africn Am (test code = 66 mL/min/1.73 >59 99985-9) BUN/Creatinine Ratio (test 18 9-20 code = 3097-3) Sodium (test code = 2951-2) 140 mmol/L 134-144 Potassium (test code = 2823-3) 4.4 mmol/L 3.5-5.2 Chloride (test code = 2075-0) 106 mmol/L 96-106 Carbon Dioxide, Total (test 23 mmol/L 20-29 code = 8-9) Calcium (test code = 54047-9) 8.7 mg/dL 8.7-10.2 Protein, Total (test code = 5.3 g/dL 6.0-8.5 L 2885-2) Albumin (test code = 1751-7) 3.0 g/dL 4.0-5.0 L Globulin, Total (test code = 2.3 g/dL 1.5-4.5 05930-2) A/G Ratio (test code = 1759-0) 1.3 1.2-2.2 Bilirubin, Total (test code = 0.5 mg/dL 0.0-1.2 1974-04) Alkaline Phosphatase (test 95 IU/L 39-117 code = 6768-6) AST (SGOT) (test code = 16 IU/L 0-40 1920-8) ALT (SGPT) (test code = 23 IU/L 0-44 1742-6) [facility] Description: Comp. Metabolic Panel (14)2019-07-04 01:03:00 Test Item Value Reference Range Interpretation Comments Glucose (test code = 2345-7) 262 mg/dL 65-99 H BUN (test code = 3094-0) 27 mg/dL 6-24 H Creatinine (test code = 1.46 mg/dL 0.76-1.27 H 2160-0) eGFR If NonAfricn Am (test 57 mL/min/1.73 >59 L code = 20828-3) eGFR If Africn Am (test code = 66 mL/min/1.73 >59 31012-0) BUN/Creatinine Ratio (test 18 9-20 code = 3097-3) Sodium (test code = 2951-2) 140 mmol/L 134-144 Potassium (test code = 2823-3) 4.4 mmol/L 3.5-5.2 Chloride (test code = 2075-0) 106 mmol/L 96-106 Carbon Dioxide, Total (test 23 mmol/L 20-29 code = 8-9) Calcium (test code = 23148-2) 8.7 mg/dL 8.7-10.2 Protein, Total (test code = 5.3 g/dL 6.0-8.5 L 2885-2) Albumin (test code = 1751-7) 3.0 g/dL 4.0-5.0 L Globulin, Total (test code = 2.3 g/dL 1.5-4.5 38024-5) A/G Ratio (test code = 1759-0) 1.3 1.2-2.2 Bilirubin, Total (test code = 0.5 mg/dL 0.0-1.2 1975-2) Alkaline Phosphatase (test 95 IU/L 39-117 code = 6768-6) AST (SGOT) (test code = 16 IU/L 0-40 1920-8) ALT (SGPT) (test code = 23 IU/L 0-44 1742-6) [facility] Description: Comp. Metabolic Panel (14)2019-07-04 01:03:00 Test Item Value Reference Range Interpretation Comments Glucose (test code = 2345-7) 262 mg/dL 65-99 H BUN (test code = 3094-0) 27 mg/dL 6-24 H Creatinine (test code = 1.46 mg/dL 0.76-1.27 H 2160-0) eGFR If NonAfricn Am (test 57 mL/min/1.73 >59 L code = 93856-1) eGFR If Africn Am (test code = 66 mL/min/1.73 >59 10367-7) BUN/Creatinine Ratio (test 18 9-20 code = 3097-3) Sodium (test code = 2951-2) 140 mmol/L 134-144 Potassium (test code = 2823-3) 4.4 mmol/L 3.5-5.2 Chloride (test code = 2075-0) 106 mmol/L 96-106 Carbon Dioxide, Total (test 23 mmol/L 20-29 code = 2028-9) Calcium (test code = 56336-9) 8.7 mg/dL 8.7-10.2 Protein, Total (test code = 5.3 g/dL 6.0-8.5 L 2885-2) Albumin (test code = 1751-7) 3.0 g/dL 4.0-5.0 L Globulin, Total (test code = 2.3 g/dL 1.5-4.5 90910-4) A/G Ratio (test code = 1759-0) 1.3 1.2-2.2 Bilirubin, Total (test code = 0.5 mg/dL 0.0-1.2 1975-2) Alkaline Phosphatase (test 95 IU/L 39-117 code = 6768-6) AST (SGOT) (test code = 16 IU/L 0-40 1920-8) ALT (SGPT) (test code = 23 IU/L 0-44 1742-6) [facility] Description: Comp. Metabolic Panel (14)2019-07-04 01:03:00 Test Item Value Reference Range Interpretation Comments Glucose (test code = 2345-7) 262 mg/dL 65-99 H BUN (test code = 3094-0) 27 mg/dL 6-24 H Creatinine (test code = 1.46 mg/dL 0.76-1.27 H 2160-0) eGFR If NonAfricn Am (test 57 mL/min/1.73 >59 L code = 52180-8) eGFR If Africn Am (test code = 66 mL/min/1.73 >59 81075-4) BUN/Creatinine Ratio (test 18 9-20 code = 3097-3) Sodium (test code = 2951-2) 140 mmol/L 134-144 Potassium (test code = 2823-3) 4.4 mmol/L 3.5-5.2 Chloride (test code = 2075-0) 106 mmol/L 96-106 Carbon Dioxide, Total (test 23 mmol/L 20-29 code = 2028-9) Calcium (test code = 16060-9) 8.7 mg/dL 8.7-10.2 Protein, Total (test code = 5.3 g/dL 6.0-8.5 L 2885-2) Albumin (test code = 1751-7) 3.0 g/dL 4.0-5.0 L Globulin, Total (test code = 2.3 g/dL 1.5-4.5 13297-4) A/G Ratio (test code = 1759-0) 1.3 1.2-2.2 Bilirubin, Total (test code = 0.5 mg/dL 0.0-1.2 1975-2) Alkaline Phosphatase (test 95 IU/L 39-117 code = 6768-6) AST (SGOT) (test code = 16 IU/L 0-40 1920-8) ALT (SGPT) (test code = 23 IU/L 0-44 1742-6) [facility] Description: Comp. Metabolic Panel (14)2019-07-04 01:03:00 Test Item Value Reference Range Interpretation Comments Glucose (test code = 2345-7) 262 mg/dL 65-99 H BUN (test code = 3094-0) 27 mg/dL 6-24 H Creatinine (test code = 1.46 mg/dL 0.76-1.27 H 2160-0) eGFR If NonAfricn Am (test 57 mL/min/1.73 >59 L code = 52100-2) eGFR If Africn Am (test code = 66 mL/min/1.73 >59 63546-2) BUN/Creatinine Ratio (test 12-16 code = 3097-3) Sodium (test code = 2951-2) 140 mmol/L 134-144 Potassium (test code = 2823-3) 4.4 mmol/L 3.5-5.2 Chloride (test code = 2075-0) 106 mmol/L 96-106 Carbon Dioxide, Total (test 23 mmol/L 20-29 code = 8-9) Calcium (test code = 22948-9) 8.7 mg/dL 8.7-10.2 Protein, Total (test code = 5.3 g/dL 6.0-8.5 L 2885-2) Albumin (test code = 1751-7) 3.0 g/dL 4.0-5.0 L Globulin, Total (test code = 2.3 g/dL 1.5-4.5 46512-0) A/G Ratio (test code = 1759-0) 1.3 1.2-2.2 Bilirubin, Total (test code = 0.5 mg/dL 0.0-1.2 1975-2) Alkaline Phosphatase (test 95 IU/L 39-117 code = 6768-6) AST (SGOT) (test code = 16 IU/L 0-40 1920-8) ALT (SGPT) (test code = 23 IU/L 0-44 1742-6) [facility] Description: Comp. Metabolic Panel (142019-07-04 01:03:00 Test Item Value Reference Range Interpretation Comments Glucose (test code = 2345-7) 262 mg/dL 65-99 H BUN (test code = 3094-0) 27 mg/dL 6-24 H Creatinine (test code = 1.46 mg/dL 0.76-1.27 H 2160-0) eGFR If NonAfricn Am (test 57 mL/min/1.73 >59 L code = 92505-9) eGFR If Africn Am (test code = 66 mL/min/1.73 >59 84020-3) BUN/Creatinine Ratio (test 18 12-16 code = 3097-3) Sodium (test code = 2951-2) 140 mmol/L 134-144 Potassium (test code = 2823-3) 4.4 mmol/L 3.5-5.2 Chloride (test code = 2075-0) 106 mmol/L 96-106 Carbon Dioxide, Total (test 23 mmol/L - code = 2027-9) Calcium (test code = 73439-9) 8.7 mg/dL 8.7-10.2 Protein, Total (test code = 5.3 g/dL 6.0-8.5 L 2885-2) Albumin (test code = 1751-7) 3.0 g/dL 4.0-5.0 L Globulin, Total (test code = 2.3 g/dL 1.5-4.5 06315-3) A/G Ratio (test code = 1759-0) 1.3 1.2-2.2 Bilirubin, Total (test code = 0.5 mg/dL 0.0-1.2 1975-2) Alkaline Phosphatase (test 95 IU/L 39-117 code = 6768-6) AST (SGOT) (test code = 16 IU/L 0-40 1920-8) ALT (SGPT) (test code = 23 IU/L 0-44 1742-6) [facility] Description: Comp. Metabolic Panel (142019-07-04 01:03:00 Test Item Value Reference Range Interpretation Comments Glucose (test code = 2345-7) 262 mg/dL 65-99 H BUN (test code = 3094-0) 27 mg/dL 6-24 H Creatinine (test code = 1.46 mg/dL 0.76-1.27 H 2160-0) eGFR If NonAfricn Am (test 57 mL/min/1.73 >59 L code = 97819-7) eGFR If Africn Am (test code = 66 mL/min/1.73 >59 42926-0) BUN/Creatinine Ratio (test 18 -20 code = 3097-3) Sodium (test code = 2951-2) 140 mmol/L 134-144 Potassium (test code = 2823-3) 4.4 mmol/L 3.5-5.2 Chloride (test code = 2075-0) 106 mmol/L 96-106 Carbon Dioxide, Total (test 23 mmol/L -29 code = 2027-9) Calcium (test code = 89005-2) 8.7 mg/dL 8.7-10.2 Protein, Total (test code = 5.3 g/dL 6.0-8.5 L 2885-2) Albumin (test code = 1751-7) 3.0 g/dL 4.0-5.0 L Globulin, Total (test code = 2.3 g/dL 1.5-4.5 77910-0) A/G Ratio (test code = 1759-0) 1.3 1.2-2.2 Bilirubin, Total (test code = 0.5 mg/dL 0.0-1.2 1975-2) Alkaline Phosphatase (test 95 IU/L 39-117 code = 6768-6) AST (SGOT) (test code = 16 IU/L 0-40 1920-8) ALT (SGPT) (test code = 23 IU/L 0-44 1742-6) [facility] Description: Comp. Metabolic Panel (14)2019-07-04 01:03:00 Test Item Value Reference Range Interpretation Comments Glucose (test code = 2345-7) 262 mg/dL 65-99 H BUN (test code = 3094-0) 27 mg/dL 6-24 H Creatinine (test code = 1.46 mg/dL 0.76-1.27 H 2160-0) eGFR If NonAfricn Am (test 57 mL/min/1.73 >59 L code = 71508-7) eGFR If Africn Am (test code = 66 mL/min/1.73 >59 75155-2) BUN/Creatinine Ratio (test 18 9-20 code = 3097-3) Sodium (test code = 2951-2) 140 mmol/L 134-144 Potassium (test code = 2823-3) 4.4 mmol/L 3.5-5.2 Chloride (test code = 2075-0) 106 mmol/L 96-106 Carbon Dioxide, Total (test 23 mmol/L 20-29 code = 8-9) Calcium (test code = 86390-9) 8.7 mg/dL 8.7-10.2 Protein, Total (test code = 5.3 g/dL 6.0-8.5 L 2885-2) Albumin (test code = 1751-7) 3.0 g/dL 4.0-5.0 L Globulin, Total (test code = 2.3 g/dL 1.5-4.5 96863-9) A/G Ratio (test code = 1759-0) 1.3 1.2-2.2 Bilirubin, Total (test code = 0.5 mg/dL 0.0-1.2 1975-2) Alkaline Phosphatase (test 95 IU/L 39-117 code = 6768-6) AST (SGOT) (test code = 16 IU/L 0-40 1920-8) ALT (SGPT) (test code = 23 IU/L 0-44 1742-6) [facility] Description: Comp. Metabolic Panel (14)2019-07-04 01:03:00 Test Item Value Reference Range Interpretation Comments Glucose (test code = 2345-7) 262 mg/dL 65-99 H BUN (test code = 3094-0) 27 mg/dL 6-24 H Creatinine (test code = 1.46 mg/dL 0.76-1.27 H 2160-0) eGFR If NonAfricn Am (test 57 mL/min/1.73 >59 L code = 27373-3) eGFR If Africn Am (test code = 66 mL/min/1.73 >59 09461-7) BUN/Creatinine Ratio (test 18 9-20 code = 3097-3) Sodium (test code = 2951-2) 140 mmol/L 134-144 Potassium (test code = 2823-3) 4.4 mmol/L 3.5-5.2 Chloride (test code = 2075-0) 106 mmol/L 96-106 Carbon Dioxide, Total (test 23 mmol/L 20-29 code = 2028-9) Calcium (test code = 26186-0) 8.7 mg/dL 8.7-10.2 Protein, Total (test code = 5.3 g/dL 6.0-8.5 L 2885-2) Albumin (test code = 1751-7) 3.0 g/dL 4.0-5.0 L Globulin, Total (test code = 2.3 g/dL 1.5-4.5 60724-7) A/G Ratio (test code = 1759-0) 1.3 1.2-2.2 Bilirubin, Total (test code = 0.5 mg/dL 0.0-1.2 1974-04) Alkaline Phosphatase (test 95 IU/L 39-117 code = 6768-6) AST (SGOT) (test code = 16 IU/L 0-40 1920-8) ALT (SGPT) (test code = 23 IU/L 0-44 1742-6) [facility] Description: Comp. Metabolic Panel (14)2019-07-04 01:03:00 Test Item Value Reference Range Interpretation Comments Glucose (test code = 2345-7) 262 mg/dL 65-99 H BUN (test code = 3094-0) 27 mg/dL 6-24 H Creatinine (test code = 1.46 mg/dL 0.76-1.27 H 2160-0) eGFR If NonAfricn Am (test 57 mL/min/1.73 >59 L code = 62162-8) eGFR If Africn Am (test code = 66 mL/min/1.73 >59 15096-5) BUN/Creatinine Ratio (test 18 9-20 code = 3097-3) Sodium (test code = 2951-2) 140 mmol/L 134-144 Potassium (test code = 2823-3) 4.4 mmol/L 3.5-5.2 Chloride (test code = 2075-0) 106 mmol/L 96-106 Carbon Dioxide, Total (test 23 mmol/L 20-29 code = 8-9) Calcium (test code = 99591-6) 8.7 mg/dL 8.7-10.2 Protein, Total (test code = 5.3 g/dL 6.0-8.5 L 2885-2) Albumin (test code = 1751-7) 3.0 g/dL 4.0-5.0 L Globulin, Total (test code = 2.3 g/dL 1.5-4.5 82360-5) A/G Ratio (test code = 1759-0) 1.3 1.2-2.2 Bilirubin, Total (test code = 0.5 mg/dL 0.0-1.2 1974-04) Alkaline Phosphatase (test 95 IU/L 39-117 code = 6768-6) AST (SGOT) (test code = 16 IU/L 0-40 1920-8) ALT (SGPT) (test code = 23 IU/L 0-44 1742-6) [facility] Description: Comp. Metabolic Panel (14)2019-07-04 01:03:00 Test Item Value Reference Range Interpretation Comments Glucose (test code = 2345-7) 262 mg/dL 65-99 H BUN (test code = 3094-0) 27 mg/dL 6-24 H Creatinine (test code = 1.46 mg/dL 0.76-1.27 H 2160-0) eGFR If NonAfricn Am (test 57 mL/min/1.73 >59 L code = 79077-8) eGFR If Africn Am (test code = 66 mL/min/1.73 >59 25378-9) BUN/Creatinine Ratio (test 18 -20 code = 3097-3) Sodium (test code = 2951-2) 140 mmol/L 134-144 Potassium (test code = 2823-3) 4.4 mmol/L 3.5-5.2 Chloride (test code = 2075-0) 106 mmol/L 96-106 Carbon Dioxide, Total (test 23 mmol/L 20-29 code = 8-9) Calcium (test code = 26754-3) 8.7 mg/dL 8.7-10.2 Protein, Total (test code = 5.3 g/dL 6.0-8.5 L 2885-2) Albumin (test code = 1751-7) 3.0 g/dL 4.0-5.0 L Globulin, Total (test code = 2.3 g/dL 1.5-4.5 58350-6) A/G Ratio (test code = 1759-0) 1.3 1.2-2.2 Bilirubin, Total (test code = 0.5 mg/dL 0.0-1.2 1975-2) Alkaline Phosphatase (test 95 IU/L 39-117 code = 6768-6) AST (SGOT) (test code = 16 IU/L 0-40 1920-8) ALT (SGPT) (test code = 23 IU/L 0-44 1742-6) [facility] Description: Comp. Metabolic Panel (14)2019-07-04 01:03:00 Test Item Value Reference Range Interpretation Comments Glucose (test code = 2345-7) 262 mg/dL 65-99 H BUN (test code = 3094-0) 27 mg/dL 6-24 H Creatinine (test code = 1.46 mg/dL 0.76-1.27 H 2160-0) eGFR If NonAfricn Am (test 57 mL/min/1.73 >59 L code = 34234-3) eGFR If Africn Am (test code = 66 mL/min/1.73 >59 34685-3) BUN/Creatinine Ratio (test 18 9-20 code = 3097-3) Sodium (test code = 2951-2) 140 mmol/L 134-144 Potassium (test code = 2823-3) 4.4 mmol/L 3.5-5.2 Chloride (test code = 2075-0) 106 mmol/L 96-106 Carbon Dioxide, Total (test 23 mmol/L 20-29 code = 2028-9) Calcium (test code = 96763-0) 8.7 mg/dL 8.7-10.2 Protein, Total (test code = 5.3 g/dL 6.0-8.5 L 2885-2) Albumin (test code = 1751-7) 3.0 g/dL 4.0-5.0 L Globulin, Total (test code = 2.3 g/dL 1.5-4.5 83727-6) A/G Ratio (test code = 1759-0) 1.3 1.2-2.2 Bilirubin, Total (test code = 0.5 mg/dL 0.0-1.2 1975-2) Alkaline Phosphatase (test 95 IU/L 39-117 code = 6768-6) AST (SGOT) (test code = 16 IU/L 0-40 1920-8) ALT (SGPT) (test code = 23 IU/L 0-44 1742-6) [facility] Description: Hemoglobin A1c/Hemoglobin.total in Blood 2019-04-05 [...] with diabetes: <7.0

P erformed by:
[facility] ([place])

[facility] Description: Lipid [id number] 02:47:00 Test Item Value Reference Range Interpretation Comments Cholesterol, Total (test code = 392 mg/dL 100-199 H 2093-3) Triglycerides (test code = 2571-8) 159 mg/dL 0-149 H HDL Cholesterol (test code = 42 mg/dL >39 2085-9) VLDL Cholesterol Renuka (test code = 32 mg/dL 5-40 46148-8) LDL Cholesterol Calc (test code = 318 mg/dL 0-99 H 22440-4) Comment: (test code = 31600-7) [employer] Description: Lipid [id number] 02:47:00 Test Item Value Reference Range Interpretation Comments Cholesterol, Total (test code = 392 mg/dL 100-199 H 2093-3) Triglycerides (test code = 2571-8) 159 mg/dL 0-149 H HDL Cholesterol (test code = 42 mg/dL >39 2085-9) VLDL Cholesterol Renuka (test code = 32 mg/dL 5-40 97829-4) LDL Cholesterol Calc (test code = 318 mg/dL 0-99 H 70472-1) Comment: (test code = 46607-9) [employer] Description: Lipid [id number] 02:47:00 Test Item Value Reference Range Interpretation Comments Cholesterol, Total (test code = 392 mg/dL 100-199 H 2093-3) Triglycerides (test code = 2571-8) 159 mg/dL 0-149 H HDL Cholesterol (test code = 42 mg/dL >39 2085-9) VLDL Cholesterol Renuka (test code = 32 mg/dL 5-40 95617-0) LDL Cholesterol Calc (test code = 318 mg/dL 0-99 H 70905-7) Comment: (test code = 63468-3) [employer] Description: Lipid [id number] 02:47:00 Test Item Value Reference Range Interpretation Comments Cholesterol, Total (test code = 392 mg/dL 100-199 H 2093-3) Triglycerides (test code = 2571-8) 159 mg/dL 0-149 H HDL Cholesterol (test code = 42 mg/dL >39 2085-9) VLDL Cholesterol Renuka (test code = 32 mg/dL 5-40 22747-4) LDL Cholesterol Calc (test code = 318 mg/dL 0-99 H 77305-6) Comment: (test code = 63758-3) [employer] Description: Lipid [id number] 02:47:00 Test Item Value Reference Range Interpretation Comments Cholesterol, Total (test code = 392 mg/dL 100-199 H 2093-3) Triglycerides (test code = 2571-8) 159 mg/dL 0-149 H HDL Cholesterol (test code = 42 mg/dL >39 2085-9) VLDL Cholesterol Renuka (test code = 32 mg/dL 5-40 54492-7) LDL Cholesterol Calc (test code = 318 mg/dL 0-99 H 68880-4) Comment: (test code = 60255-3) [employer] Description: Lipid [id number] 02:47:00 Test Item Value Reference Range Interpretation Comments Cholesterol, Total (test code = 392 mg/dL 100-199 H 2093-3) Triglycerides (test code = 2571-8) 159 mg/dL 0-149 H HDL Cholesterol (test code = 42 mg/dL >39 2085-9) VLDL Cholesterol Renuka (test code = 32 mg/dL 5-40 77561-8) LDL Cholesterol Calc (test code = 318 mg/dL 0-99 H 57032-0) Comment: (test code = 68784-4) [employer] Description: Lipid [id number] 02:47:00 Test Item Value Reference Range Interpretation Comments Cholesterol, Total (test code = 392 mg/dL 100-199 H 2093-3) Triglycerides (test code = 2571-8) 159 mg/dL 0-149 H HDL Cholesterol (test code = 42 mg/dL >39 2085-9) VLDL Cholesterol Renuka (test code = 32 mg/dL 5-40 54254-0) LDL Cholesterol Calc (test code = 318 mg/dL 0-99 H 25962-2) Comment: (test code = 27295-3) [employer] Description: Lipid [id number] 02:47:00 Test Item Value Reference Range Interpretation Comments Cholesterol, Total (test code = 392 mg/dL 100-199 H 2093-3) Triglycerides (test code = 2571-8) 159 mg/dL 0-149 H HDL Cholesterol (test code = 42 mg/dL >39 2085-9) VLDL Cholesterol Renuka (test code = 32 mg/dL 5-40 46973-5) LDL Cholesterol Calc (test code = 318 mg/dL 0-99 H 60347-7) Comment: (test code = 80606-3) [employer] Description: Lipid [id number] 02:47:00 Test Item Value Reference Range Interpretation Comments Cholesterol, Total (test code = 392 mg/dL 100-199 H 2093-3) Triglycerides (test code = 2571-8) 159 mg/dL 0-149 H HDL Cholesterol (test code = 42 mg/dL >39 2085-9) VLDL Cholesterol Renuka (test code = 32 mg/dL 5-40 38694-0) LDL Cholesterol Calc (test code = 318 mg/dL 0-99 H 93144-5) Comment: (test code = 20284-1) [employer] Description: Lipid [id number] 02:47:00 Test Item Value Reference Range Interpretation Comments Cholesterol, Total (test code = 392 mg/dL 100-199 H 2093-3) Triglycerides (test code = 2571-8) 159 mg/dL 0-149 H HDL Cholesterol (test code = 42 mg/dL >39 2085-9) VLDL Cholesterol Renuka (test code = 32 mg/dL 5-40 80022-4) LDL Cholesterol Calc (test code = 318 mg/dL 0-99 H 41048-4) Comment: (test code = 04814-5) [employer] Description: Lipid [id number] 02:47:00 Test Item Value Reference Range Interpretation Comments Cholesterol, Total (test code = 392 mg/dL 100-199 H 2093-3) Triglycerides (test code = 2571-8) 159 mg/dL 0-149 H HDL Cholesterol (test code = 42 mg/dL >39 2085-9) VLDL Cholesterol Renuka (test code = 32 mg/dL 5-40 52583-7) LDL Cholesterol Calc (test code = 318 mg/dL 0-99 H 00959-0) Comment: (test code = 47783-0) [employer] Description: Lipid [id number] 02:47:00 Test Item Value Reference Range Interpretation Comments Cholesterol, Total (test code = 392 mg/dL 100-199 H 2093-3) Triglycerides (test code = 2571-8) 159 mg/dL 0-149 H HDL Cholesterol (test code = 42 mg/dL >39 2085-9) VLDL Cholesterol Renuka (test code = 32 mg/dL 5-40 48898-0) LDL Cholesterol Calc (test code = 318 mg/dL 0-99 H 92114-4) Comment: (test code = 74741-7) [employer] Description: Lipid [id number] 02:47:00 Test Item Value Reference Range Interpretation Comments Cholesterol, Total (test code = 392 mg/dL 100-199 H 2093-3) Triglycerides (test code = 2571-8) 159 mg/dL 0-149 H HDL Cholesterol (test code = 42 mg/dL >39 2085-9) VLDL Cholesterol Renuka (test code = 32 mg/dL 5-40 44723-4) LDL Cholesterol Calc (test code = 318 mg/dL 0-99 H 54632-3) Comment: (test code = 37791-6) [employer] Description: Lipid [id number] 02:47:00 Test Item Value Reference Range Interpretation Comments Cholesterol, Total (test code = 392 mg/dL 100-199 H 2093-3) Triglycerides (test code = 2571-8) 159 mg/dL 0-149 H HDL Cholesterol (test code = 42 mg/dL >39 2085-9) VLDL Cholesterol Renuka (test code = 32 mg/dL 5-40 09387-6) LDL Cholesterol Calc (test code = 318 mg/dL 0-99 H 24605-0) Comment: (test code = 82041-8) [employer] Description: Lipid [id number] 02:47:00 Test Item Value Reference Range Interpretation Comments Cholesterol, Total (test code = 392 mg/dL 100-199 H 2093-3) Triglycerides (test code = 2571-8) 159 mg/dL 0-149 H HDL Cholesterol (test code = 42 mg/dL >39 2085-9) VLDL Cholesterol Renuka (test code = 32 mg/dL 5-40 99866-6) LDL Cholesterol Calc (test code = 318 mg/dL 0-99 H 60897-0) Comment: (test code = 95960-9) [employer] Description: Lipid [id number] 02:47:00 Test Item Value Reference Range Interpretation Comments Cholesterol, Total (test code = 392 mg/dL 100-199 H 2093-3) Triglycerides (test code = 2571-8) 159 mg/dL 0-149 H HDL Cholesterol (test code = 42 mg/dL >39 2085-9) VLDL Cholesterol Renuka (test code = 32 mg/dL 5-40 23873-3) LDL Cholesterol Calc (test code = 318 mg/dL 0-99 H 54442-4) Comment: (test code = 76186-4) [employer] Description: Lipid [id number] 02:47:00 Test Item Value Reference Range Interpretation Comments Cholesterol, Total (test code = 392 mg/dL 100-199 H 2093-3) Triglycerides (test code = 2571-8) 159 mg/dL 0-149 H HDL Cholesterol (test code = 42 mg/dL >39 5-9) VLDL Cholesterol Renuka (test code = 32 mg/dL 5-40 26911-3) LDL Cholesterol Calc (test code = 318 mg/dL 0-99 H 92167-9) Comment: (test code = 16918-3) [employer] Description: Lipid [id number] 02:47:00 Test Item Value Reference Range Interpretation Comments Cholesterol, Total (test code = 392 mg/dL 100-199 H 2093-3) Triglycerides (test code = 2571-8) 159 mg/dL 0-149 H HDL Cholesterol (test code = 42 mg/dL >39 5-9) VLDL Cholesterol Renuka (test code = 32 mg/dL 5-40 67777-4) LDL Cholesterol Calc (test code = 318 mg/dL 0-99 H 81649-9) Comment: (test code = 91078-8) [employer] Description: Lipid [id number] 02:47:00 Test Item Value Reference Range Interpretation Comments Cholesterol, Total (test code = 392 mg/dL 100-199 H 2093-3) Triglycerides (test code = 2571-8) 159 mg/dL 0-149 H HDL Cholesterol (test code = 42 mg/dL >39 5-9) VLDL Cholesterol Renuka (test code = 32 mg/dL 5-40 76280-9) LDL Cholesterol Calc (test code = 318 mg/dL 0-99 H 21875-5) Comment: (test code = 45448-4) [facility] Description: Comp. Metabolic Panel (14)2019-04-05 02:37:00 Test Item Value Reference Range Interpretation Comments Glucose (test code = 219 mg/dL 65-99 H 2345-7) BUN (test code = 44 mg/dL 6-24 H 3094-0) Creatinine (test code 1.51 mg/dL 0.76-1.27 H = 2160-0) eGFR If NonAfricn Am 55 mL/min/1.73 >59 L (test code = 02145-9) eGFR If Africn Am 64 mL/min/1.73 >59 (test code = 88746-4) BUN/Creatinine Ratio 29 9-20 H (test code = 3097-3) Sodium (test code = 139 mmol/L 319-174 1266-2) Potassium (test code 4.4 mmol/L 3.5-5.2 = 2823-3) Chloride (test code = 99 mmol/L 96-106 2075-0) Carbon Dioxide, Total 28 mmol/L 20-29 (test code = 2027-9) Calcium (test code = 8.9 mg/dL 8.7-10.2 22376-8) Protein, Total (test 6.1 g/dL 6.0-8.5 code [...] Total (test 2.8 g/dL 1.5-4.5 code = 33036-6) A/G Ratio (test code 1.2 1.2-2.2 = 1759-0) Bilirubin, Total 0.5 mg/dL 0.0-1.2 (test code = 1974-2) Alkaline Phosphatase 100 IU/L 39-117 (test code = 6768-6) AST (SGOT) (test code 22 IU/L 0-40 = 1920-8) ALT (SGPT) (test code 27 IU/L 0-44 = 1742-6) [facility] Description: Comp. Metabolic Panel (14)2019-04-05 02:37:00 Test Item Value Reference Range Interpretation Comments Glucose (test code = 219 mg/dL 65-99 H 2345-7) BUN (test code = 44 mg/dL 6-24 H 3094-0) Creatinine (test code 1.51 mg/dL 0.76-1.27 H = 2160-0) eGFR If NonAfricn Am 55 mL/min/1.73 >59 L (test code = 32135-6) eGFR If Africn Am 64 mL/min/1.73 >59 (test code = 96003-3) BUN/Creatinine Ratio 29 9-20 H (test code = 3097-3) Sodium (test code = 139 mmol/L 596-140 8328-2) Potassium (test code 4.4 mmol/L 3.5-5.2 = 2823-3) Chloride (test code = 99 mmol/L 96-106 2074-0) Carbon Dioxide, Total 28 mmol/L -29 (test code = 2027-11) Calcium (test code = 8.9 mg/dL 8.7-10.2 31159-7) Protein, Total (test 6.1 g/dL 6.0-8.5 code [...] Total (test 2.8 g/dL 1.5-4.5 code = 51354-3) A/G Ratio (test code 1.2 1.2-2.2 = 1759-0) Bilirubin, Total 0.5 mg/dL 0.0-1.2 (test code = 1974-) Alkaline Phosphatase 100 IU/L 39-117 (test code = 6768-6) AST (SGOT) (test code 22 IU/L 0-40 = 1920-8) ALT (SGPT) (test code 27 IU/L 0-44 = 1742-6) [facility] Description: Comp. Metabolic Panel (14)2019-04-05 02:37:00 Test Item Value Reference Range Interpretation Comments Glucose (test code = 219 mg/dL 65-99 H 2345-7) BUN (test code = 44 mg/dL 6-24 H 3094-0) Creatinine (test code 1.51 mg/dL 0.76-1.27 H = 2160-0) eGFR If NonAfricn Am 55 mL/min/1.73 >59 L (test code = 54378-7) eGFR If Africn Am 64 mL/min/1.73 >59 (test code = 88108-8) BUN/Creatinine Ratio 29 9-20 H (test code = 3097-3) Sodium (test code = 139 mmol/L 065-944 5473-2) Potassium (test code 4.4 mmol/L 3.5-5.2 = 2823-3) Chloride (test code = 99 mmol/L 96-106 2075-0) Carbon Dioxide, Total 28 mmol/L 20-29 (test code = 8-9) Calcium (test code = 8.9 mg/dL 8.7-10.2 46550-4) Protein, Total (test 6.1 g/dL 6.0-8.5 code [...] - 4.6

Pe rfo rmed by:
[facility] ([place])

Globulin, Total (test 2.8 g/dL 1.5-4.5 code = 02385-1) A/G Ratio (test code 1.2 1.2-2.2 = 1759-0) Bilirubin, Total 0.5 mg/dL 0.0-1.2 (test code = 1975-2) Alkaline Phosphatase 100 IU/L 39-117 (test code = 6768-6) AST (SGOT) (test code 22 IU/L 0-40 = 1920-8) ALT (SGPT) (test code 27 IU/L 0-44 = 1742-6) [facility] Description: Comp. Metabolic Panel (142019-04-05 02:37:00 Test Item Value Reference Range Interpretation Comments Glucose (test code = 219 mg/dL 65-99 H 2345-7) BUN (test code = 44 mg/dL 6-24 H 3094-0) Creatinine (test code 1.51 mg/dL 0.76-1.27 H = 2160-0) eGFR If NonAfricn Am 55 mL/min/1.73 >59 L (test code = 67052-6) eGFR If Africn Am 64 mL/min/1.73 >59 (test code = 54178-5) BUN/Creatinine Ratio 29 9-20 H (test code = 3097-3) Sodium (test code = 139 mmol/L 953-447 4470-2) Potassium (test code 4.4 mmol/L 3.5-5.2 = 2823-3) Chloride (test code = 99 mmol/L 96-106 2075-0) Carbon Dioxide, Total 28 mmol/L 20-29 (test code = 2027-) Calcium (test code = 8.9 mg/dL 8.7-10.2 40955-5) Protein, Total (test 6.1 g/dL 6.0-8.5 code [...] - 4.6

Pe rfo rmed by:
[facility] [place] ([place])

Globulin, Total (test 2.8 g/dL 1.5-4.5 code = 04562-1) A/G Ratio (test code 1.2 1.2-2.2 = 1759-0) Bilirubin, Total 0.5 mg/dL 0.0-1.2 (test code = 1974-) Alkaline Phosphatase 100 IU/L 39-117 (test code = 6768-6) AST (SGOT) (test code 22 IU/L 0-40 = 1920-8) ALT (SGPT) (test code 27 IU/L 0-44 = 1742-6) [facility] Description: Comp. Metabolic Panel (142019-04-05 02:37:00 Test Item Value Reference Range Interpretation Comments Glucose (test code = 219 mg/dL 65-99 H 2345-7) BUN (test code = 44 mg/dL 6-24 H 3094-0) Creatinine (test code 1.51 mg/dL 0.76-1.27 H = 2160-0) eGFR If NonAfricn Am 55 mL/min/1.73 >59 L (test code = 72592-7) eGFR If Africn Am 64 mL/min/1.73 >59 (test code = 33927-8) BUN/Creatinine Ratio 29 9-20 H (test code = 3097-3) Sodium (test code = 139 mmol/L 729-381 1972-2) Potassium (test code 4.4 mmol/L 3.5-5.2 = 2823-3) Chloride (test code = 99 mmol/L 96-106 2075-0) Carbon Dioxide, Total 28 mmol/L 20-29 (test code = 8-9) Calcium (test code = 8.9 mg/dL 8.7-10.2 01095-0) Protein, Total (test 6.1 g/dL 6.0-8.5 code [...] Total (test 2.8 g/dL 1.5-4.5 code = 54922-3) A/G Ratio (test code 1.2 1.2-2.2 = 1759-0) Bilirubin, Total 0.5 mg/dL 0.0-1.2 (test code = 1975-2) Alkaline Phosphatase 100 IU/L 39-117 (test code = 6768-6) AST (SGOT) (test code 22 IU/L 0-40 = 1920-8) ALT (SGPT) (test code 27 IU/L 0-44 = 1742-6) [facility] Description: Comp. Metabolic Panel (14)2019-04-05 02:37:00 Test Item Value Reference Range Interpretation Comments Glucose (test code = 219 mg/dL 65-99 H 2345-7) BUN (test code = 44 mg/dL 6-24 H 3094-0) Creatinine (test code 1.51 mg/dL 0.76-1.27 H = 2160-0) eGFR If NonAfricn Am 55 mL/min/1.73 >59 L (test code = 32693-1) eGFR If Africn Am 64 mL/min/1.73 >59 (test code = 32709-0) BUN/Creatinine Ratio 29 9-20 H (test code = 3097-3) Sodium (test code = 139 mmol/L 527-998 1910-2) Potassium (test code 4.4 mmol/L 3.5-5.2 = 2823-3) Chloride (test code = 99 mmol/L 96-106 2075-0) Carbon Dioxide, Total 28 mmol/L 20-29 (test code = 2028-9) Calcium (test code = 8.9 mg/dL 8.7-10.2 07305-6) Protein, Total (test 6.1 g/dL 6.0-8.5 code [...] - 4.6

Pe rfo rmed by:
[facility] [place] ()

Globulin, Total (test 2.8 g/dL 1.5-4.5 code = 78707-6) A/G Ratio (test code 1.2 1.2-2.2 = 1759-0) Bilirubin, Total 0.5 mg/dL 0.0-1.2 (test code = 1974-) Alkaline Phosphatase 100 IU/L 39-117 (test code = 6768-6) AST (SGOT) (test code 22 IU/L 0-40 = 1920-8) ALT (SGPT) (test code 27 IU/L 0-44 = 1742-6) [facility] Description: Comp. Metabolic Panel (14)2019-04-05 02:37:00 Test Item Value Reference Range Interpretation Comments Glucose (test code = 219 mg/dL 65-99 H 2345-7) BUN (test code = 44 mg/dL 6-24 H 3094-0) Creatinine (test code 1.51 mg/dL 0.76-1.27 H = 2160-0) eGFR If NonAfricn Am 55 mL/min/1.73 >59 L (test code = 90948-2) eGFR If Africn Am 64 mL/min/1.73 >59 (test code = 83753-0) BUN/Creatinine Ratio 29 9-20 H (test code = 3097-3) Sodium (test code = 139 mmol/L 458-459 6139-2) Potassium (test code 4.4 mmol/L 3.5-5.2 = 2823-3) Chloride (test code = 99 mmol/L 96-106 2075-0) Carbon Dioxide, Total 28 mmol/L 20-29 (test code = 2027-9) Calcium (test code = 8.9 mg/dL 8.7-10.2 91255-9) Protein, Total (test 6.1 g/dL 6.0-8.5 code [...] Total (test 2.8 g/dL 1.5-4.5 code = 15921-1) A/G Ratio (test code 1.2 1.2-2.2 = 1759-0) Bilirubin, Total 0.5 mg/dL 0.0-1.2 (test code = 1974-2) Alkaline Phosphatase 100 IU/L 39-117 (test code = 6768-6) AST (SGOT) (test code 22 IU/L 0-40 = 1920-8) ALT (SGPT) (test code 27 IU/L 0-44 = 1742-6) [facility] Description: Comp. Metabolic Panel (14)2019-04-05 02:37:00 Test Item Value Reference Range Interpretation Comments Glucose (test code = 219 mg/dL 65-99 H 2345-7) BUN (test code = 44 mg/dL 6-24 H 3094-0) Creatinine (test code 1.51 mg/dL 0.76-1.27 H = 2160-0) eGFR If NonAfricn Am 55 mL/min/1.73 >59 L (test code = 46942-0) eGFR If Africn Am 64 mL/min/1.73 >59 (test code = 27213-3) BUN/Creatinine Ratio 29 9-20 H (test code = 3097-3) Sodium (test code = 139 mmol/L 631-699 3629-2) Potassium (test code 4.4 mmol/L 3.5-5.2 = 2823-3) Chloride (test code = 99 mmol/L 96-106 2075-0) Carbon Dioxide, Total 28 mmol/L 20-29 (test code = 2027-9) Calcium (test code = 8.9 mg/dL 8.7-10.2 51784-2) Protein, Total (test 6.1 g/dL 6.0-8.5 code [...] - 4.6

Pe rfo rmed by:
[facility] [place] ([place])

Globulin, Total (test 2.8 g/dL 1.5-4.5 code = 91593-2) A/G Ratio (test code 1.2 1.2-2.2 = 1759-0) Bilirubin, Total 0.5 mg/dL 0.0-1.2 (test code = 1975-2) Alkaline Phosphatase 100 IU/L 39-117 (test code = 6768-6) AST (SGOT) (test code 22 IU/L 0-40 = 1920-8) ALT (SGPT) (test code 27 IU/L 0-44 = 1742-6) [facility] Description: Comp. Metabolic Panel (14)2019-04-05 02:37:00 Test Item Value Reference Range Interpretation Comments Glucose (test code = 219 mg/dL 65-99 H 2345-7) BUN (test code = 44 mg/dL 6-24 H 3094-0) Creatinine (test code 1.51 mg/dL 0.76-1.27 H = 2160-0) eGFR If NonAfricn Am 55 mL/min/1.73 >59 L (test code = 49287-9) eGFR If Africn Am 64 mL/min/1.73 >59 (test code = 38970-0) BUN/Creatinine Ratio 29 9-20 H (test code = 3097-3) Sodium (test code = 139 mmol/L 834-003 2068-2) Potassium (test code 4.4 mmol/L 3.5-5.2 = 2823-3) Chloride (test code = 99 mmol/L 96-106 2075-0) Carbon Dioxide, Total 28 mmol/L 20-29 (test code = 2027-9) Calcium (test code = 8.9 mg/dL 8.7-10.2 99479-0) Protein, Total (test 6.1 g/dL 6.0-8.5 code [...] Total (test 2.8 g/dL 1.5-4.5 code = 81046-4) A/G Ratio (test code 1.2 1.2-2.2 = 1759-0) Bilirubin, Total 0.5 mg/dL 0.0-1.2 (test code = 1975-2) Alkaline Phosphatase 100 IU/L 39-117 (test code = 6768-6) AST (SGOT) (test code 22 IU/L 0-40 = 1920-8) ALT (SGPT) (test code 27 IU/L 0-44 = 1742-6) [facility] Description: Comp. Metabolic Panel (14)2019-04-05 02:37:00 Test Item Value Reference Range Interpretation Comments Glucose (test code = 219 mg/dL 65-99 H 2345-7) BUN (test code = 44 mg/dL 6-24 H 3094-0) Creatinine (test code 1.51 mg/dL 0.76-1.27 H = 2160-0) eGFR If NonAfricn Am 55 mL/min/1.73 >59 L (test code = 89063-7) eGFR If Africn Am 64 mL/min/1.73 >59 (test code = 95187-2) BUN/Creatinine Ratio 29 9-20 H (test code = 3097-3) Sodium (test code = 139 mmol/L 459-178 2822-2) Potassium (test code 4.4 mmol/L 3.5-5.2 = 2823-3) Chloride (test code = 99 mmol/L 96-106 2075-0) Carbon Dioxide, Total 28 mmol/L 20-29 (test code = 2027-9) Calcium (test code = 8.9 mg/dL 8.7-10.2 62226-8) Protein, Total (test 6.1 g/dL 6.0-8.5 code [...] - 4.6

Pe rfo rmed by:
[facility] [place] ([place])

Globulin, Total (test 2.8 g/dL 1.5-4.5 code = 97429-5) A/G Ratio (test code 1.2 1.2-2.2 = 1759-0) Bilirubin, Total 0.5 mg/dL 0.0-1.2 (test code = 1975-2) Alkaline Phosphatase 100 IU/L 39-117 (test code = 6768-6) AST (SGOT) (test code 22 IU/L 0-40 = 1920-8) ALT (SGPT) (test code 27 IU/L 0-44 = 1742-6) [facility]: Comp[facility] (14)2019-04-05 02:37:00 Test Item Value Reference Range Interpretation Comments Glucose (test code = 219 mg/dL 65-99 H 2345-7) BUN (test code = 44 mg/dL 6-24 H 3094-0) Creatinine (test code 1.51 mg/dL 0.76-1.27 H = 2160-0) eGFR If NonAfricn Am 55 mL/min/1.73 >59 L (test code = 09819-8) eGFR If Africn Am 64 mL/min/1.73 >59 (test code = 96924-9) BUN/Creatinine Ratio 29 9-20 H (test code = 3097-3) Sodium (test code = 139 mmol/L 422-376 8247-2) Potassium (test code 4.4 mmol/L 3.5-5.2 = 2823-3) Chloride (test code = 99 mmol/L 96-106 2075-0) Carbon Dioxide, Total 28 mmol/L 20-29 (test code = 2027-9) Calcium (test code = 8.9 mg/dL 8.7-10.2 51837-4) Protein, Total (test 6.1 g/dL 6.0-8.5 code [...] Total (test 2.8 g/dL 1.5-4.5 code = 91406-8) A/G Ratio (test code 1.2 1.2-2.2 = 1759-0) Bilirubin, Total 0.5 mg/dL 0.0-1.2 (test code = 1974-2) Alkaline Phosphatase 100 IU/L 39-117 (test code = 6768-6) AST (SGOT) (test code 22 IU/L 0-40 = 1920-8) ALT (SGPT) (test code 27 IU/L 0-44 = 1742-6) [facility] Description: Comp. Metabolic Panel (2019-04-05 02:37:00 Test Item Value Reference Range Interpretation Comments Glucose (test code = 219 mg/dL 65-99 H 2345-7) BUN (test code = 44 mg/dL 6-24 H 3094-0) Creatinine (test code 1.51 mg/dL 0.76-1.27 H = 2160-0) eGFR If NonAfricn Am 55 mL/min/1.73 >59 L (test code = 67408-0) eGFR If Africn Am 64 mL/min/1.73 >59 (test code = 03552-9) BUN/Creatinine Ratio 29 9-20 H (test code = 3097-3) Sodium (test code = 139 mmol/L 746-131 1953-2) Potassium (test code 4.4 mmol/L 3.5-5.2 = 2823-3) Chloride (test code = 99 mmol/L 96-106 2075-0) Carbon Dioxide, Total 28 mmol/L 20-29 (test code = 2027-9) Calcium (test code = 8.9 mg/dL 8.7-10.2 26649-6) Protein, Total (test 6.1 g/dL 6.0-8.5 code [...] Total (test 2.8 g/dL 1.5-4.5 code = 00682-1) A/G Ratio (test code 1.2 1.2-2.2 = 1759-0) Bilirubin, Total 0.5 mg/dL 0.0-1.2 (test code = 1975-2) Alkaline Phosphatase 100 IU/L 39-117 (test code = 6768-6) AST (SGOT) (test code 22 IU/L 0-40 = 1920-8) ALT (SGPT) (test code 27 IU/L 0-44 = 1742-6) [facility] Description: Comp. Metabolic Panel (14)2019-04-05 02:37:00 Test Item Value Reference Range Interpretation Comments Glucose (test code = 219 mg/dL 65-99 H 2345-7) BUN (test code = 44 mg/dL 6-24 H 3094-0) Creatinine (test code 1.51 mg/dL 0.76-1.27 H = 2160-0) eGFR If NonAfricn Am 55 mL/min/1.73 >59 L (test code = 90927-7) eGFR If Africn Am 64 mL/min/1.73 >59 (test code = 54232-0) BUN/Creatinine Ratio 29 9-20 H (test code = 3097-3) Sodium (test code = 139 mmol/L 084-293 2438-2) Potassium (test code 4.4 mmol/L 3.5-5.2 = 2823-3) Chloride (test code = 99 mmol/L 96-106 2075-0) Carbon Dioxide, Total 28 mmol/L 20-29 (test code = 2027-9) Calcium (test code = 8.9 mg/dL 8.7-10.2 63682-5) Protein, Total (test 6.1 g/dL 6.0-8.5 code [...] - 4.6

Pe rfo rmed by:
[facility] [place] ([place])

Globulin, Total (test 2.8 g/dL 1.5-4.5 code = 86678-6) A/G Ratio (test code 1.2 1.2-2.2 = 1759-0) Bilirubin, Total 0.5 mg/dL 0.0-1.2 (test code = 1975-2) Alkaline Phosphatase 100 IU/L 39-117 (test code = 6768-6) AST (SGOT) (test code 22 IU/L 0-40 = 1920-8) ALT (SGPT) (test code 27 IU/L 0-44 = 1742-6) [facility] Description: Comp. Metabolic Panel (14)2019-04-05 02:37:00 Test Item Value Reference Range Interpretation Comments Glucose (test code = 219 mg/dL 65-99 H 2345-7) BUN (test code = 44 mg/dL 6-24 H 3094-0) Creatinine (test code 1.51 mg/dL 0.76-1.27 H = 2160-0) eGFR If NonAfricn Am 55 mL/min/1.73 >59 L (test code = 20825-1) eGFR If Africn Am 64 mL/min/1.73 >59 (test code = 96915-4) BUN/Creatinine Ratio 29 9-20 H (test code = 3097-3) Sodium (test code = 139 mmol/L 331-871 1289-2) Potassium (test code 4.4 mmol/L 3.5-5.2 = 2823-3) Chloride (test code = 99 mmol/L 96-106 2075-0) Carbon Dioxide, Total 28 mmol/L 20-29 (test code = 2027-9) Calcium (test code = 8.9 mg/dL 8.7-10.2 73371-7) Protein, Total (test 6.1 g/dL 6.0-8.5 code [...] - 4.6

Pe rfo rmed by:
[facility] [place] ([place])

Globulin, Total (test 2.8 g/dL 1.5-4.5 code = 57210-6) A/G Ratio (test code 1.2 1.2-2.2 = [...] 55 mL/min/1.73 >59 L (test code = 21420-3) eGFR If Africn Am 64 mL/min/1.73 >59 (test code = 81436-3) BUN/Creatinine Ratio 29 9-20 H (test code = 3097-3) Sodium (test code = 139 mmol/L 232-220 5866-2) Potassium (test code 4.4 mmol/L 3.5-5.2 = 2823-3) Chloride (test code = 99 mmol/L 96-106 2075-0) Carbon Dioxide, Total 28 mmol/L 20-29 (test code = 2027-9) Calcium (test code = 8.9 mg/dL 8.7-10.2 02799-8) Protein, Total (test 6.1 g/dL 6.0-8.5 code [...] - 4.6

Pe rfo rmed by:
[facility] [place] ([place])

Globulin, Total (test 2.8 g/dL 1.5-4.5 code = 04774-7) A/G Ratio (test code 1.2 1.2-2.2 = 1759-0) Bilirubin, Total 0.5 mg/dL 0.0-1.2 (test code = 1975-2) Alkaline Phosphatase 100 IU/L 39-117 (test code = 6768-6) AST (SGOT) (test code 22 IU/L 0-40 = 1920-8) ALT (SGPT) (test code 27 IU/L 0-44 = 1742-6) [facility] Description: Comp. Metabolic Panel (14)2019-04-05 02:37:00 Test Item Value Reference Range Interpretation Comments Glucose (test code = 219 mg/dL 65-99 H 2345-7) BUN (test code = 44 mg/dL 6-24 H 3094-0) Creatinine (test code 1.51 mg/dL 0.76-1.27 H = 2160-0) eGFR If NonAfricn Am 55 mL/min/1.73 >59 L (test code = 69502-3) eGFR If Africn Am 64 mL/min/1.73 >59 (test code = 92882-7) BUN/Creatinine Ratio 29 9-20 H (test code = 3097-3) Sodium (test code = 139 mmol/L 784-290 6674-2) Potassium (test code 4.4 mmol/L 3.5-5.2 = 2823-3) Chloride (test code = 99 mmol/L 96-106 2075-0) Carbon Dioxide, Total 28 mmol/L 20-29 (test code = 2027-9) Calcium (test code = 8.9 mg/dL 8.7-10.2 31368-9) Protein, Total (test 6.1 g/dL 6.0-8.5 code [...] Total (test 2.8 g/dL 1.5-4.5 code = 80751-4) A/G Ratio (test code 1.2 1.2-2.2 = 1759-0) Bilirubin, Total 0.5 mg/dL 0.0-1.2 (test code = 1975-2) Alkaline Phosphatase 100 IU/L 39-117 (test code = 6768-6) AST (SGOT) (test code 22 IU/L 0-40 = 1920-8) ALT (SGPT) (test code 27 IU/L 0-44 = 1742-6) [facility] Description: Comp. Metabolic Panel (2019-04-05 02:37:00 Test Item Value Reference Range Interpretation Comments Glucose (test code = 219 mg/dL 65-99 H 2345-7) BUN (test code = 44 mg/dL 6-24 H 3094-0) Creatinine (test code 1.51 mg/dL 0.76-1.27 H = 2160-0) eGFR If NonAfricn Am 55 mL/min/1.73 >59 L (test code = 96380-2) eGFR If Africn Am 64 mL/min/1.73 >59 (test code = 75206-9) BUN/Creatinine Ratio 29 9-20 H (test code = 3097-3) Sodium (test code = 139 mmol/L 391-109 0544-2) Potassium (test code 4.4 mmol/L 3.5-5.2 = 2823-3) Chloride (test code = 99 mmol/L 96-106 2075-0) Carbon Dioxide, Total 28 mmol/L 20-29 (test code = 2027-) Calcium (test code = 8.9 mg/dL 8.7-10.2 92570-9) Protein, Total (test 6.1 g/dL 6.0-8.5 code [...] Total (test 2.8 g/dL 1.5-4.5 code = 28686-6) A/G Ratio (test code 1.2 1.2-2.2 = 1759-0) Bilirubin, Total 0.5 mg/dL 0.0-1.2 (test code = 1975-2) Alkaline Phosphatase 100 IU/L 39-117 (test code = 6768-6) AST (SGOT) (test code 22 IU/L 0-40 = 1920-8) ALT (SGPT) (test code 27 IU/L 0-44 = 1742-6) [facility] Description: Comp. Metabolic Panel (14)2019-04-05 02:37:00 Test Item Value Reference Range Interpretation Comments Glucose (test code = 219 mg/dL 65-99 H 2345-7) BUN (test code = 44 mg/dL 6-24 H 3094-0) Creatinine (test code 1.51 mg/dL 0.76-1.27 H = 2160-0) eGFR If NonAfricn Am 55 mL/min/1.73 >59 L (test code = 65134-8) eGFR If Africn Am 64 mL/min/1.73 >59 (test code = 81028-8) BUN/Creatinine Ratio 29 9-20 H (test code = 3097-3) Sodium (test code = 139 mmol/L 822-084 8876-2) Potassium (test code 4.4 mmol/L 3.5-5.2 = 2823-3) Chloride (test code = 99 mmol/L 96-106 2075-0) Carbon Dioxide, Total 28 mmol/L 20-29 (test code = 2027-9) Calcium (test code = 8.9 mg/dL 8.7-10.2 76229-4) Protein, Total (test 6.1 g/dL 6.0-8.5 code [...] Total (test 2.8 g/dL 1.5-4.5 code = 16306-0) A/G Ratio (test code 1.2 1.2-2.2 = 1759-0) Bilirubin, Total 0.5 mg/dL 0.0-1.2 (test code = 1974-2) Alkaline Phosphatase 100 IU/L 39-117 (test code = 6768-6) AST (SGOT) (test code 22 IU/L 0-40 = 1920-8) ALT (SGPT) (test code 27 IU/L 0-44 = 1742-6) [facility] Description: Comp. Metabolic Panel (14)2019-04-05 02:37:00 Test Item Value Reference Range Interpretation Comments Glucose (test code = 219 mg/dL 65-99 H 2345-7) BUN (test code = 44 mg/dL 6-24 H 3094-0) Creatinine (test code 1.51 mg/dL 0.76-1.27 H = 2160-0) eGFR If NonAfricn Am 55 mL/min/1.73 >59 L (test code = 88285-4) eGFR If Africn Am 64 mL/min/1.73 >59 (test code = 54339-3) BUN/Creatinine Ratio 29 9-20 H (test code = 3097-3) Sodium (test code = 139 mmol/L 466-181 6569-2) Potassium (test code 4.4 mmol/L 3.5-5.2 = 2823-3) Chloride (test code = 99 mmol/L 96-106 5-0) Carbon Dioxide, Total 28 mmol/L 20-29 (test code = 2027-9) Calcium (test code = 8.9 mg/dL 8.7-10.2 99295-8) Protein, Total (test 6.1 g/dL 6.0-8.5 code [...] - 4.6

Pe rfo rmed by:
[facility] [place] ([place])

Globulin, Total (test 2.8 g/dL 1.5-4.5 code = 43924-8) A/G Ratio (test code 1.2 1.2-2.2 = 1759-0) Bilirubin, Total 0.5 mg/dL 0.0-1.2 (test code = 1975-2) Alkaline Phosphatase 100 IU/L 39-117 (test code = 6768-6) AST (SGOT) (test code 22 IU/L 0-40 = 1920-8) ALT (SGPT) (test code 27 IU/L 0-44 = 1742-6) [facility] [id number] 11:58:00 Test Item Value Reference Range Interpretation Comments STREP A ANTIGEN (BEAKER) (test code Negative = 556) POCT-GLUCOSE [id number] 22:44:00 Test Item Value Reference Range Interpretation Comments POC-GLUCOSE METER 431 mg/dL 70-110 HH TESTED AT [address] ([facility]) (test code [facility] = 1538) 10048 POCT-GLUCOSE [id number] 22:44:00 Test Item Value Reference Range Interpretation Comments POC-GLUCOSE METER 455 mg/dL 70-110 HH TESTED AT [address] ([facility]) (test code [facility] [place] = 1538) 17434 URINALYSIS W/ REFLEX URINE [id number] 20:30:00 Test Item Value Reference Range Interpretation [...] SOURCE(BEAKER) (test code = 2795) COMPREHENSIVE METABOLIC [id number] 20:27:00 Test Item Value Reference Range Interpretation [...] S NOT APPLICABLE FOR DIALYSIS PATIEN TS. [id number] 20:27:00 Test Item Value Reference Range Interpretation Comments LIPASE (BEAKER) (test code = 749) 37 U/L 6-51 [id number] 20:23:00 Test Item Value Reference Range Interpretation [...] Information (Auto Output)CBC W/PLT COUNT & AUTO [id number] 20:11:00 Test Item Value Reference Range Interpretation [...] (BEAKER) (test code = 2801) BASIC METABOLIC [id number] 06:52:00 Test Item Value Reference Range Interpretation [...] NOT APPLICABLE FOR DIALYSIS PATIEN TS. POCT-GLUCOSE [id number] 05:58:00 Test Item Value Reference Range Interpretation Comments POC-GLUCOSE METER 222 mg/dL 70-110 H TESTED AT [address] (BEAKER) (test code [facility] [place] = 1538) 75441 POCT-GLUCOSE [id number] 20:37:00 Test Item Value Reference Range Interpretation Comments POC-GLUCOSE METER 157 mg/dL 70-110 H TESTED AT [address] (BEAKER) (test code [facility] [place] = 1538) 87235 POCT-GLUCOSE [id number] 18:13:00 Test Item Value Reference Range Interpretation Comments POC-GLUCOSE METER 176 mg/dL 70-110 H TESTED AT [address] (BEAKER) (test code [facility] [place] = 1538) 15783 POCT-GLUCOSE [id number] 12:16:00 Test Item Value Reference Range Interpretation Comments POC-GLUCOSE METER 161 mg/dL 70-110 H TESTED AT [address] [facility] (test code [facility] [place] = 1538) [address] BASIC METABOLIC [id number] 07:11:00 Test Item Value Reference Range Interpretation [...] PATIEN TS. CBC W/PLT COUNT & AUTO [id number] 06:27:00 Test Item Value Reference Range Interpretation [...] PERCENT (BEAKER) (test code = 2801) POCT-GLUCOSE [id number] 06:22:00 Test Item Value Reference Range Interpretation Comments POC-GLUCOSE METER 172 mg/dL 70-110 H [facility] AT [facility] (BEAKER) (test code [facility] [place] = 1538) 17003 POCT-GLUCOSE [id number] 20:27:00 Test Item Value Reference Range Interpretation Comments POC-GLUCOSE METER 209 mg/dL 70-110 H TESTED AT [facility] (BEAKER) (test code [facility] [place] = 1538) 33592 POCT-GLUCOSE [id number] 18:12:00 Test Item Value Reference Range Interpretation Comments POC-GLUCOSE METER 192 mg/dL 70-110 H TESTED AT [facility] (BEAKER) (test code [facility] [place] = 1538) 77344 POCT-GLUCOSE [id number] 11:20:00 Test Item Value Reference Range Interpretation Comments POC-GLUCOSE METER 192 mg/dL 70-110 H TESTED AT [address] (BEAKER) (test code [facility] [place] = 1538) 47[address] BASIC METABOLIC [id number] 07:02:00 Test Item Value Reference Range Interpretation [...] PATIEN TS. CBC W/PLT COUNT & AUTO [id number] 06:41:00 Test Item Value Reference Range Interpretation [...] PERCENT (BEAKER) (test code = 2801) POCT-GLUCOSE [id number] 06:13:00 Test Item Value Reference Range Interpretation Comments POC-GLUCOSE METER 134 mg/dL 70-110 H TESTED AT [address] ([facility]) (test code [facility] [place] = 1538) 60994 POCT-GLUCOSE [id number] 21:38:00 Test Item Value Reference Range Interpretation Comments POC-GLUCOSE METER 114 mg/dL 70-110 H TESTED AT [address] ([facility]) (test code [facility] [place] = 1538) 847[address] POCT-GLUCOSE [id number] 16:58:00 Test Item Value Reference Range Interpretation Comments POC-GLUCOSE METER 294 mg/dL 70-110 H TESTED AT [address] ([facility]) (test code [facility] [place] = 1538) 09013 POCT-GLUCOSE [id number] 12:03:00 Test Item Value Reference Range Interpretation Comments POC-GLUCOSE METER 157 mg/dL 70-110 H TESTED AT [address] ([facility]) (test code [facility] [place] = 1538) 739[address] POCT-GLUCOSE [id number] 06:50:00 Test Item Value Reference Range Interpretation Comments POC-GLUCOSE METER 167 mg/dL 70-110 H TESTED AT [address] ([facility]) (test code [facility] [place] = 1538) [address] BASIC METABOLIC [id number] 05:07:00 Test Item Value Reference Range Interpretation [...] I S NOT APPLICABLE FOR DIALYSIS PATIEN SIRENA. [id number] 05:01:00 Test Item Value Reference Range Interpretation Comments MAGNESIUM (BEAKER) (test code = 2.0 mg/dL 1.5-3.0 627) CBC W/PLT COUNT & AUTO [id number] 04:43:00 Test Item Value Reference Range Interpretation [...] PERCENT (BEAKER) (test code = 2801) POCT-GLUCOSE [id number] 20:37:00 Test Item Value Reference Range Interpretation Comments POC-GLUCOSE METER 212 mg/dL 70-110 H TESTED AT [address] ([facility]) (test code [facility] [place] = 1538) 74857 POCT-GLUCOSE [id number] 17:03:00 Test Item Value Reference Range Interpretation Comments POC-GLUCOSE METER 176 mg/dL 70-110 H TESTED AT [address] ([facility]) (test code [facility] [place] = 1538) 50723 POCT-GLUCOSE [id number] 12:05:00 Test Item Value Reference Range Interpretation Comments POC-GLUCOSE METER 169 mg/dL 70-110 H TESTED AT [address] ([facility]) (test code [facility] [place] = 1538) 88398 POCT-GLUCOSE [id number] 09:25:00 Test Item Value Reference Range Interpretation Comments POC-GLUCOSE METER 148 mg/dL 70-110 H TESTED AT [address] ([facility]) (test code [facility] [place] = 1538) 45[address] BASIC METABOLIC [id number] 06:32:00 Test Item Value Reference Range Interpretation [...] NOT APPLICABLE FOR DIALYSIS PATIEN TS. POCT-GLUCOSE [id number] 06:12:00 Test Item Value Reference Range Interpretation Comments POC-GLUCOSE METER 165 mg/dL 70-110 H TESTED AT [address] ([facility]) (test code [facility] [place] = 1538) [address] CBC W/PLT COUNT & AUTO [id number] 06:00:00 Test Item Value Reference Range Interpretation [...] PERCENT (BEAKER) (test code = 2801) POCT-GLUCOSE [id number] 21:02:00 Test Item Value Reference Range Interpretation Comments POC-GLUCOSE METER 185 mg/dL 70-110 H TESTED AT [address] [facility] (test code [facility] [place] = 1538) [address] POCT-GLUCOSE [id number] 16:21:00 Test Item Value Reference Range Interpretation Comments POC-GLUCOSE METER 141 mg/dL 70-110 H TESTED AT [address] [facility] (test code [facility] [place] = 1538) [address] POCT-GLUCOSE [id number] 12:26:00 Test Item Value Reference Range Interpretation Comments POC-GLUCOSE METER 145 mg/dL 70-110 H TESTED AT [address] (BEAKER) (test code [facility] [place] = 1538) [address] POCT-GLUCOSE [id number] 06:43:00 Test Item Value Reference Range Interpretation Comments POC-GLUCOSE METER 170 mg/dL 70-110 H TESTED AT [address] (BEAKER) (test code [facility] [place] = 1538) [address] BASIC METABOLIC [id number] 06:39:00 Test Item Value Reference Range Interpretation [...] S NOT APPLICABLE FOR DIALYSIS PATIEN TS. [id number] 06:33:00 Test Item Value Reference Range Interpretation Comments MAGNESIUM (BEAKER) (test code = 1.9 mg/dL 1.5-3.0 627) CBC W/PLT COUNT & AUTO [id number] 06:10:00 Test Item Value Reference Range Interpretation [...] PERCENT (BEAKER) (test code = 2801) POCT-GLUCOSE [id number] 21:08:00 Test Item Value Reference Range Interpretation Comments POC-GLUCOSE METER 218 mg/dL 70-110 H TESTED AT [address] [facility] (test code [facility] [place] = 1538) [id number] POCT-GLUCOSE [id number] 16:36:00 Test Item Value Reference Range Interpretation Comments POC-GLUCOSE METER 142 mg/dL 70-110 H TESTED AT [address] (BEAKER) (test code [facility] [place] = 1538) [address] POCT-GLUCOSE [id number] 11:26:00 Test Item Value Reference Range Interpretation Comments POC-GLUCOSE METER 191 mg/dL 70-110 H TESTED AT [address] (BEAKER) (test code [facility] [place] = 1538) [address] VANCOMYCIN LEVEL, [id number] 09:08:00 Test Item Value Reference Range Interpretation Comments VANCOMYCIN TROUGH (BEAKER) (test 17.9 ug/mL 10.0-20.0 code = 522) VANCOMYCIN DOSING BY RX - follow upTROUGH PRIOR TO DOSE ON 01/20/18 AT 8:30am COMPREHENSIVE METABOLIC [id number] 06:57:00 Test Item Value Reference Range Interpretation [...] NOT APPLICABLE FOR DIALYSIS PATIEN TS. POCT-GLUCOSE [id number] 06:33:00 Test Item Value Reference Range Interpretation Comments POC-GLUCOSE METER 226 mg/dL 70-110 H [facility]) (test code [facility] [place] = 1538) [address] B-TYPE NATRIURETIC FACTOR (BNP)2018-01-20 06:00:00 Test Item Value Reference Range Interpretation Comments B-TYPE NATRIURETIC PEPTIDE (BEAKER) 371 pg/mL 0-100 H (test code = 700) CBC W/PLT COUNT & AUTO [id number] 05:40:00 Test Item Value Reference Range Interpretation [...] (BEAKER) (test code = 2801) BASIC METABOLIC [id number] 23:25:00 Test Item Value Reference Range Interpretation [...] S NOT APPLICABLE FOR DIALYSIS PATIEN TS. [id number] 23:19:00 Test Item Value Reference Range Interpretation Comments MAGNESIUM (BEAKER) (test code = 1.9 mg/dL 1.5-3.0 627) POCT-GLUCOSE [id number] 21:12:00 Test Item Value Reference Range Interpretation Comments POC-GLUCOSE METER 237 mg/dL 70-110 H TESTED AT [address] (BEAKER) (test code [address] [facility] [place] = 1538) [address] POCT-GLUCOSE [id number] 17:00:00 Test Item Value Reference Range Interpretation Comments POC-GLUCOSE METER 156 mg/dL 70-110 H TESTED AT [facility] (BEAKER) (test code [address] [facility] [place] = 1538) [address] POCT-GLUCOSE [id number] 12:51:00 Test Item Value Reference Range Interpretation Comments POC-GLUCOSE METER 135 mg/dL 70-110 H TESTED AT [facility] (test code [address] [facility] [place] = 1538) [address] POCT-GLUCOSE [id number] 08:16:00 Test Item Value Reference Range Interpretation Comments POC-GLUCOSE METER 212 mg/dL 70-110 H TESTED AT [facility] ([facility] (test code [address] [facility] [place] = 1538) [address] VANCOMYCIN LEVEL, [id number] 21:00:00 Test Item Value Reference Range Interpretation Comments VANCOMYCIN TROUGH (BEAKER) (test 14.3 ug/mL 10.0-20.0 code = 522) POCT-GLUCOSE [id number] 20:56:00 Test Item Value Reference Range Interpretation Comments POC-GLUCOSE METER 216 mg/dL 70-110 H TESTED AT [address] ([facility]) (test code [address] [facility] [place] = 1538) 200[address] POCT-GLUCOSE [id number] 17:03:00 Test Item Value Reference Range Interpretation Comments POC-GLUCOSE METER 269 mg/dL 70-110 H TESTED AT [address] ([facility] (test code [address] [facility] [place] = 1538) [address] POCT-GLUCOSE [id number] 06:22:00 Test Item Value Reference Range Interpretation Comments POC-GLUCOSE METER 115 mg/dL 70-110 H TESTED AT [address] ([facility]) (test code [address] [facility] [place] = 1538) [address] BASIC METABOLIC [id number] 04:43:00 Test Item Value Reference Range Interpretation [...] S NOT APPLICABLE FOR DIALYSIS PATIEN TS. [id number] 04:37:00 Test Item Value Reference Range Interpretation Comments MAGNESIUM (BEAKER) (test code = 1.8 mg/dL 1.5-3.0 627) CBC W/PLT COUNT & AUTO [id number] 04:24:00 Test Item Value Reference Range Interpretation [...] PERCENT (BEAKER) (test code = 2801) POCT-GLUCOSE [id number] 20:55:00 Test Item Value Reference Range Interpretation Comments POC-GLUCOSE METER 145 mg/dL 70-110 H TESTED AT [address] ([facility]) (test code [address] [facility] [place] = 1538) [address] VENOUS DOPPLER LEGS, [id number] 17:50:00Reason for exam:->r/o DVT FINAL REPORT Comparison: [...] MDReport Verified Date/Time: 01/17/2018 17:50:07 Reading Location: [facility] Mammo Reading Room POCT-GLUCOSE [id number] 17:04:00 Test Item Value Reference Range Interpretation Comments POC-GLUCOSE METER 134 mg/dL 70-110 H TESTED AT [address] ([facility]) (test code [address] [facility] [place] = 1538) [address] POCT-GLUCOSE [id number] 11:54:00 Test Item Value Reference Range Interpretation Comments POC-GLUCOSE METER 219 mg/dL 70-110 H TESTED AT [facility] (BEAKER) (test code [address] [facility] [place] = 1538) [address] POCT-GLUCOSE [id number] 09:10:00 Test Item Value Reference Range Interpretation Comments POC-GLUCOSE METER 48 mg/dL 70-110 L TESTED AT [facility] (BEAKER) (test code = [address] [facility] [place] 1538) [address] BASIC METABOLIC [id number] 06:27:00 Test Item Value Reference Range Interpretation [...] NOT APPLICABLE FOR DIALYSIS PATIEN TS. POCT-GLUCOSE [id number] 06:26:00 Test Item Value Reference Range Interpretation Comments POC-GLUCOSE METER 101 mg/dL 70-110 TESTED AT [address] (BEAKER) (test code [address] [facility] [place] = 1538) [address] CBC W/PLT COUNT & AUTO [id number] 05:58:00 Test Item Value Reference Range Interpretation [...] PERCENT (BEAKER) (test code = 2801) TROPONIN [id number] 00:11:00 Test Item Value Reference Range Interpretation [...] = 700) RAD, CHEST, 1 VIEW, NON [id number] 00:09:00Reason for exam:->SHORTNESS OF BREATHReason for exam:->EDEMAReason [...] Robert MDReport Verified Date/Time: 01/17/2018 00:09:15 Reading Location:[facility] C013Y CT Body Reading Room BASIC METABOLIC [id number] 00:02:00 Test Item Value Reference Range Interpretation [...] PATIEN TS. CBC W/PLT COUNT & AUTO [id number] 23:35:00 Test Item Value Reference Range Interpretation [...] PERCENT (BEAKER) (test code = 2801) BLOOD [id number] 10:00:00 Test Item Value Reference Range Interpretation Comments CULTURE (BEAKER) (test No growth in 5 days code = 1095) BLOOD [id number] 10:00:00 Test Item Value Reference Range Interpretation Comments CULTURE (BEAKER) (test No growth in 5 days code = 1095) WOUND CULTURE + GRAM [id number] 10:10:00 Test Item Value Reference Interpretation Comments [...] (test code = cocci in pairs and 992825) clusters POCT-GLUCOSE [id number] 17:33:00 Test Item Value Reference Range Interpretation Comments POC-GLUCOSE METER 105 mg/dL 70-110 TESTED AT [facility] ([facility]) (test code [address] [facility] [place] = 5228) [address] URINALYSIS W/ REFLEX URINE [id number] 09:56:00 Test Item Value Reference Range Interpretation [...] 1663) SOURCE(BEAKER) (test code = 2795) POCT-GLUCOSE [id number] 08:36:00 Test Item Value Reference Range Interpretation Comments POC-GLUCOSE METER 162 mg/dL 70-110 H TESTED AT [address] (BEAKER) (test code [address] [facility] [place] = 153) [address]279 TSH/FREE T4 IF [id number] 07:04:00 Test Item Value Reference Range Interpretation Comments THYROID STIMULATING HORMONE 4.64 uIU/mL 0.35-5.50 (BEAKER) (test code = 772) LIPID [id number] 06:50:00 Test Item Value Reference Range Interpretation [...] 100-129 Borderline 130-159 High 160-189 Very High >=190BASI METABOLIC [id number] 06:48:00 Test Item Value Reference Range Interpretation [...] PATIEN TS. CBC W/PLT COUNT & AUTO [id number] 06:33:00 Test Item Value Reference Range Interpretation [...] PERCENT (BEAKER) (test code = 2801) HEMOGLOBIN [id number] 06:32:00 Test Item Value Reference Range Interpretation Comments HEMOGLOBIN A1C (BEAKER) (test code = 10.4 % 4.3-6.1 H 368) VENOUS DOPPLER LEGS, [id number] 05:53:00Reason for exam:->edema rule out DVT/ CellulitisFINAL [...] MDReport Verified Date/Time: 12/08/2017 05:53:51 Reading Location: [facility] C013Y CT Body Reading Room TROPONIN [id number] 00:46:00 Test Item Value Reference Range Interpretation Comments TROPONIN I ([facility]) (test code = 0.03 ng/mL [...] acidosis, acute neurological disease, and persistent tachyarrhythmia.POCT-GLUCOSE [id number] 21:14:00 Test Item Value Reference Range Interpretation Comments POC-GLUCOSE METER 221 mg/dL 70-110 H TESTED AT [address] ([facility]) (test code [facility] [facility] = 1538) [address] POCT-GLUCOSE [id number] 16:43:00 Test Item Value Reference Range Interpretation Comments POC-GLUCOSE METER 371 mg/dL 70-110 H TESTED AT [address] ([facility]) (test code [address] [facility] [place] = 1538) [address] CREATINE KINASE (CK), TOTAL AND [id number] 14:26:00 Test Item Value Reference Range Interpretation Comments CREATINE KINASE TOTAL ([facility]) 366 U/L 40-250 H (test code = 380) CREATINE KINASE-MB ([facility]) (test 8.1 ng/mL 0.0-4.9 H [...] acute neurological disease, and persistent tachyarrhythmia.BASIC METABOLIC [id number] 14:00:00 Test Item Value Reference Range Interpretation [...] S NOT APPLICABLE FOR DIALYSIS PATIEN TS. [id number] 13:54:00 Test Item Value Reference Range Interpretation Comments MAGNESIUM (BEAKER) 2.1 mg/dL 1.5-3.0 Specimen slightly (test code = 627) hemolyzed B-TYPE NATRIURETIC FACTOR (BNP)2017-12-07 13:48:00 Test Item Value Reference Range Interpretation Comments B-TYPE NATRIURETIC PEPTIDE (BEAKER) 520 pg/mL 0-100 H (test code = 700) [id number] 13:19:00 Test Item Value Reference Range Interpretation [...] Information (Auto Output)CBC W/PLT COUNT & AUTO [id number] 13:07:00 Test Item Value Reference Range Interpretation [...] = 2801) RAD, CHEST, 1 VIEW, NON [id number] 12:44:00Reason for exam:->CHEST PAIN FINAL REPORT Chest [...] MDReport Verified Date/Time: 12/07/2017 12:44:27 Reading Location: [address] Radiology Reading Room CREATINE KINASE (CK), TOTAL AND [id number] 02:36:00 Test Item Value Reference Range Interpretation [...] acute neurological disease, and persistent tachyarrhythmia.COMPREHENSIVE METABOLIC [id number] 02:28:00 Test Item Value Reference Range Interpretation [...] PATIEN TS. CBC W/PLT COUNT & AUTO [id number] 02:14:00 Test Item Value Reference Range Interpretation [...] PERCENT (BEAKER) (test code = 2801) KETONE, [id number] 01:55:00 Test Item Value Reference Range Interpretation Comments KETONES, BLOOD (BEAKER) (test code 0.2 mmol/L <0.4 = 1103) RAD, CHEST, 1 VIEW, NON [id number] 01:46:00Reason for exam:->pacemaker placement,pt feels it was [...] MDReport Verified Date/Time: 11/27/2017 01:46:38 Reading Location: [address] Reading Room POCT-GLUCOSE [id number] 13:29:00 Test Item Value Reference Range Interpretation Comments POC-GLUCOSE METER 214 mg/dL 70-110 H TESTED AT [facility] (BEAKER) (test code [address] [facility] [place] = 1538) [address] BASIC METABOLIC [id number] 06:48:00 Test Item Value Reference Range Interpretation [...] PATIEN TS. CBC W/PLT COUNT & AUTO [id number] 06:23:00 Test Item Value Reference Range Interpretation [...] L 0.00-0.20 (test code = 417) POCT-GLUCOSE [id number] 06:20:00 Test Item Value Reference Range Interpretation Comments POC-GLUCOSE METER 184 mg/dL 70-110 H TESTED AT [address] ([facility]) (test code [address] [facility] [place] = 1538) [address] POCT-GLUCOSE [id number] 20:47:00 Test Item Value Reference Range Interpretation Comments POC-GLUCOSE METER 323 mg/dL 70-110 H Notified R Live SCHULER/TESTED AT ([facility]) (test code [address] POINT = 1538) [facility] [address] POCT-GLUCOSE [id number] 16:55:00 Test Item Value Reference Range Interpretation Comments POC-GLUCOSE METER 320 mg/dL 70-110 H TESTED AT [address] ([facility]) (test code [address] [facility] [place] = 1538) [address] B-TYPE NATRIURETIC FACTOR (BNP)2017-09-08 11:28:00 Test Item Value Reference Range Interpretation Comments B-TYPE NATRIURETIC PEPTIDE (BEAKER) 800 pg/mL 0-100 H (test code = 700) TROPONIN [id number] 11:25:00 Test Item Value Reference Range Interpretation [...] acute neurological disease, and persistent tachyarrhythmia.BASIC METABOLIC [id number] 11:17:00 Test Item Value Reference Range Interpretation [...] S NOT APPLICABLE FOR DIALYSIS PATIEN TS. [id number] 11:15:00 Test Item Value Reference Range Interpretation [...] (Auto Output)Final Information (Auto Output)Final Information (Auto Output)[id number] 11:11:00 Test Item Value Reference Range Interpretation Comments MAGNESIUM (BEAKER) (test code = 2.0 mg/dL 1.5-3.0 627) RAD, CHEST, 1 VIEW, NON [id number] 10:55:00Reason for exam:->chest pain FINAL REPORT CLINICAL HISTORY: chest pain TECHNIQUE: 1 view of the chest. COMPARISON: 06/10/2017 IMPRESSION: There is new pulmonary vascular congestion without lobar consolidation. There is blunting of the left costophrenic angle. The cardiomediastinal silhouette is magnified bytechnique with a pacemaker. Signed: Sia Hensley MDReport Verified Date/Time: 09/08/2017 10:55:33Reading Location: [facility] Radiology Reading Room CBC W/PLT COUNT & AUTO [id number] 10:47:00 Test Item Value Reference Range Interpretation [...] 0.00-0.20 (test code = 417) HIV-1 PCR, [id number] 05:37:00 Test Item Value Reference Range Interpretation Comments HIV-1 RESULT HIV RNA not detected HIV RNA not detected COMPONENT (BEAKER) (test code = 2703) This test uses a Real-Time Polymerase Chain Reaction (RT-PCR) methodology to detect a highly conserved region of the HIV-1 gag gene and was performed using the [employer]ENN[employer]ER AmpliPrep/JENNIFER TaqMan HIV-1 test kit version 2.0 ([employer]Reportable range for this assay is 20 - 10,000,000 copies per mL (1.3 - 7.0 Log copies/mL).DOUBLE-STRANDED DNA (DSDNA) [id number] 10:04:00 Test Item Value Reference Range Interpretation Comments ANTI-DNA DS (BEAKER) (test code = Negative 1055) TIFF TITER AND [id number] 11:54:00 Test Item Value Reference Range Interpretation Comments TIFF TITER (BEAKER) (test code = :160 1541) TIFF PATTERN (BEAKER) (test code = Homogeneous 1781) ANTI-NUCLEAR ANTIBODY (TIFF)2017-06-14 11:53:00 Test Item Value Reference Range Interpretation Comments ANTI-NUCLEAR ANTIBODY (TIFF) (BEAKER) Positive Negative A (test code = 418) POCT-GLUCOSE [id number] 05:52:00 Test Item Value Reference Range Interpretation Comments POC-GLUCOSE METER 96 mg/dL 70-110 TESTED AT [address] ([facility] ([facility] [place] [facility] [address] BASIC METABOLIC [id number] 05:15:00 Test Item Value Reference Range Interpretation [...] NOT APPLICABLE FOR DIALYSIS PATIEN TS. POCT-GLUCOSE [id number] 05:09:00 Test Item Value Reference Range Interpretation Comments POC-GLUCOSE METER 67 mg/dL 70-110 L TESTED AT [address] ([facility] (test code = [facility] [place] [facility] [address] POCT-GLUCOSE [id number] 21:55:00 Test Item Value Reference Range Interpretation Comments POC-GLUCOSE METER 142 mg/dL 70-110 H TESTED AT [address] ([facility]) (test code [address] [facility] [place] = 1538) [address] POCT-GLUCOSE [id number] 19:05:00 Test Item Value Reference Range Interpretation Comments POC-GLUCOSE METER 139 mg/dL 70-110 H TESTED AT [address] ([facility]) (test code [place] [facility] [place] = 1538) [address] POCT-GLUCOSE [id number] 16:54:00 Test Item Value Reference Range Interpretation Comments POC-GLUCOSE METER 59 mg/dL 70-110 L TESTED AT [address] ([facility]) (test code = [facility] [place] [facility] [address] POCT-GLUCOSE [id number] 13:19:00 Test Item Value Reference Range Interpretation Comments POC-GLUCOSE METER 235 mg/dL 70-110 H TESTED AT [address] ([facility]) (test code [address] [facility] [place] = 1538) [address]97 POCT-GLUCOSE [id number] 06:52:00 Test Item Value Reference Range Interpretation Comments POC-GLUCOSE METER 113 mg/dL 70-110 H TESTED AT [address] ([facility]) (test code [address] [facility] [place] = 1538) 24063 POCT-GLUCOSE [id number] 21:48:00 Test Item Value Reference Range Interpretation Comments POC-GLUCOSE METER 183 mg/dL 70-110 H TESTED AT [address] ([facility]) (test code [address] [facility] [place] = 1538) [address] POCT-GLUCOSE [id number] 17:22:00 Test Item Value Reference Range Interpretation Comments POC-GLUCOSE METER 262 mg/dL 70-110 H TESTED AT [address] ([facility]) (test code [address] [facility] [place] = 1538) 57548 POCT-GLUCOSE [id number] 12:30:00 Test Item Value Reference Range Interpretation Comments POC-GLUCOSE METER 131 mg/dL 70-110 H TESTED AT [address] ([facility]) (test code [address] [facility] [place] = 1538) [address] MICROALBUMIN, RANDOM [id number] 12:25:00 Test Item Value Reference Range Interpretation Comments MICROALBUMIN URINE ([facility]) (test 59.0 mg/dL code = 1794) Reference Range: No NormalsHEPATITIS PANEL, [id number] 11:31:00 Test Item Value Reference Range Interpretation Comments HEPATITIS A IGM ANTIBODY ([facility]) Nonreactive Nonreactive (test code = 498) HEPATITIS B CORE IGM ANTIBODY Nonreactive Nonreactive ([facility]) (test code = 645) HEPATITIS C ANTIBODY ([facility]) Nonreactive Nonreactive (test code = 367) HEPATITIS B SURFACE ANTIGEN (2) Nonreactive Nonreactive (BEAKER) (test code = 2585) COMPLEMENT COMPONENT [id number] 11:09:00 Test Item Value Reference Range Interpretation Comments C4 COMPLEMENT (BEAKER) (test code = 28 mg/dL 15-57 394) COMPLEMENT COMPONENT [id number] 11:09:00 Test Item Value Reference Range Interpretation Comments C3 COMPLEMENT (BEAKER) (test code = 145 mg/dL 82-193 393) POCT-GLUCOSE [id number] 06:48:00 Test Item Value Reference Range Interpretation Comments POC-GLUCOSE METER 75 mg/dL 70-110 TESTED AT [facility] (BEAKER) (test code = [address] [facility] 1538) [address] TROPONIN [id number] 05:58:00 Test Item Value Reference Range Interpretation [...] acute neurological disease, and persistent tachyarrhythmia.BASIC METABOLIC [id number] 05:49:00 Test Item Value Reference Range Interpretation [...] S NOT APPLICABLE FOR DIALYSIS PATIEN TS. [id number] 05:48:00 Test Item Value Reference Range Interpretation Comments PHOSPHORUS ([facility]) (test code = 4.2 mg/dL 2.5-4.5 604) POCT-GLUCOSE [id number] 21:18:00 Test Item Value Reference Range Interpretation Comments POC-GLUCOSE METER 146 mg/dL 70-110 H TESTED AT [address]) (test code [place] [facility] [place] = 1538) [address] TROPONIN [id number] 18:26:00 Test Item Value Reference Range Interpretation Comments TROPONIN I ([facility]) (test code = 0.04 ng/mL [...] acidosis, acute neurological disease, and persistent tachyarrhythmia.POCT-GLUCOSE [id number] 17:07:00 Test Item Value Reference Range Interpretation Comments POC-GLUCOSE METER 97 mg/dL 70-110 TESTED AT [address] ([facility]) (test code = [facility] [address] POCT-GLUCOSE [id number] 13:31:00 Test Item Value Reference Range Interpretation Comments POC-GLUCOSE METER 125 mg/dL 70-110 H TESTED AT [address]) (test code [address] [facility] [place] = 1538) [address] TROPONIN [id number] 06:11:00 Test Item Value Reference Range Interpretation Comments TROPONIN I ([facility]) (test code = 397) < [...] acidosis, acute neurological disease, and persistent tachyarrhythmia.LIPID [id number] 06:05:00 Test Item Value Reference Range Interpretation [...] 130-159 High 160-189 Very High >=190BASIC METABOLIC [id number] 06:03:00 Test Item Value Reference Range Interpretation [...] S NOT APPLICABLE FOR DIALYSIS PATIEN TS. [id number] 05:57:00 Test Item Value Reference Range Interpretation Comments MAGNESIUM (BEAKER) (test code = 1.9 mg/dL 1.5-3.0 627) HEMOGLOBIN [id number] 05:56:00 Test Item Value Reference Range Interpretation Comments HEMOGLOBIN A1C (BEAKER) (test code = 7.7 % 4.3-6.1 H 368) CBC W/PLT COUNT & AUTO [id number] 05:31:00 Test Item Value Reference Range Interpretation [...] L 0.00-0.20 (test code = 417) TROPONIN [id number] 22:53:00 Test Item Value Reference Range Interpretation [...] acute neurological disease, and persistent tachyarrhythmia.U/S, ABDOMINAL, [id number] 22:08:00Reason for exam:->AscitesReason for exam:->BLOATEDFINAL REPORT U/S, [...] MDReport Verified Date/Time: 06/10/2017 22:08:13 Reading Location: [address] Reading Room URINALYSIS W/ REFLEX URINE [id number] 18:41:00 Test Item Value Reference Range Interpretation [...] 1663) SOURCE(BEAKER) (test code = 2795) TROPONIN [id number] 13:07:00 Test Item Value Reference Range Interpretation [...] H (test code = 700) HEPATIC FUNCTION [id number] 12:59:00 Test Item Value Reference Range Interpretation [...] (test code = 23 U/L 5-50 347) [id number] 12:59:00 Test Item Value Reference Range Interpretation Comments LIPASE (BEAKER) (test code = 749) 19 U/L 6-51 BASIC METABOLIC [id number] 12:57:00 Test Item Value Reference Range Interpretation [...] PATIEN TS. CBC W/PLT COUNT & AUTO [id number] 12:37:00 Test Item Value Reference Range Interpretation [...] = 417) RAD, CHEST, 1 VIEW, NON [id number] 12:32:00Reason for exam:->shortness of breathReason for exam:->BLOATEDShould this be performed [facility]?->YesFINAL REPORT Comparison: 04/06/2012 TECHNIQUE: Single view of the chest FINDINGS: Lung volumes are low. Prominence of the cardiac silhouette and vasculature which may be related topoor inspiration and technique . There is no gross consolidation identified. No overt edema or largepleural effusion. Left-sided pacing device noted. No acute skeletal abnormality. Signed: Veronica Bonilla Verified Date/Time: 06/10/2017 12:32:49 Reading Location: [facility] Radiology Reading Room POCT-GLUCOSE [id number] 07:40:00 Test Item Value Reference Range Interpretation Comments POC-GLUCOSE METER 100 mg/dL 70-110 TESTED AT [address] ([facility]) (test code [address] [facility] [place] = 1538) [address] POCT-GLUCOSE [id number] 06:57:00 Test Item Value Reference Range Interpretation Comments POC-GLUCOSE METER 50 mg/dL 70-110 L TESTED AT [address] ([facility]) (test code = [address] [facility] 1538) [address] POCT-GLUCOSE [id number] 20:59:00 Test Item Value Reference Range Interpretation Comments POC-GLUCOSE METER 142 mg/dL 70-110 H TESTED AT [address] ([facility]) (test code [address] [facility] [place] = 1538) [address] POCT-GLUCOSE [id number] 17:23:00 Test Item Value Reference Range Interpretation Comments POC-GLUCOSE METER 123 mg/dL 70-110 H TESTED AT [address]) (test code [address] [facility] [place] = 1538) [address] POCT-GLUCOSE [id number] 12:38:00 Test Item Value Reference Range Interpretation Comments POC-GLUCOSE METER 153 mg/dL 70-110 H TESTED AT [address] ([facility] (test code [address] [facility] [place] = 1538) [address] BASIC METABOLIC [id number] 05:49:00 Test Item Value Reference Range Interpretation [...] NOT APPLICABLE FOR DIALYSIS PATIEN TS. POCT-GLUCOSE [id number] 05:36:00 Test Item Value Reference Range Interpretation Comments POC-GLUCOSE METER 74 mg/dL 70-110 TESTED AT [address] ([facility]) (test code = [address] [facility] 1538) [address] CBC W/PLT COUNT & AUTO [id number] 05:29:00 Test Item Value Reference Range Interpretation [...] L 0.00-0.20 (test code = 417) POCT-GLUCOSE [id number] 19:53:00 Test Item Value Reference Range Interpretation Comments POC-GLUCOSE METER 120 mg/dL 70-110 H TESTED AT [address] (BEAKER) (test code [facility] [place] = 1538) [address] POCT-GLUCOSE [id number] 15:41:00 Test Item Value Reference Range Interpretation Comments POC-GLUCOSE METER 135 mg/dL 70-110 H TESTED AT [address] ([facility]) (test code [address] [facility] [place] = 1538) [address] RAD, CHEST, 1 VIEW, NON [id number] 12:31:00Reason for exam:->follow up FINAL REPORT COMPARISON: 04/03/2017 TECHNIQUE: Single view of the chest FINDINGS: Small left pleural effusion with adjacent airspace disease. There is mild vascular congestion elsewhere. Cardiac silhouette is enlarged. Left-sided pacing device noted. Signed: Gab Bonilla MDReport Verified Date/Time: 04/06/2017 12:31:34 Reading Location: [facility] Radiology Reading Room POCT- GLUCOSE [id number] 11:39:00 Test Item Value Reference Range Interpretation Comments POC-GLUCOSE METER 184 mg/dL 70-110 H TESTED AT [address] ([facility]) (test code [address] [facility] [place] = 1538) [id number] POCT-GLUCOSE [id number] 07:18:00 Test Item Value Reference Range Interpretation Comments POC-GLUCOSE METER 83 mg/dL 70-110 TESTED AT [address] ([facility]) (test code = [address] [facility] 1538) [address] BASIC METABOLIC [id number] 06:01:00 Test Item Value Reference Range Interpretation [...] = 700) CBC W/PLT COUNT & AUTO [id number] 05:39:00 Test Item Value Reference Range Interpretation [...] L 0.00-0.20 (test code = 417) POCT-GLUCOSE [id number] 21:56:00 Test Item Value Reference Range Interpretation Comments POC-GLUCOSE METER 144 mg/dL 70-110 H TESTED AT [address] (BEAKER) (test code [address] [facility] [place] = 1538) [address] POCT-GLUCOSE [id number] 16:38:00 Test Item Value Reference Range Interpretation Comments POC-GLUCOSE METER 153 mg/dL 70-110 H TESTED AT [address] ([facility] (test code [address] [facility] [place] = 1538) [address] POCT-GLUCOSE [id number] 12:52:00 Test Item Value Reference Range Interpretation Comments POC-GLUCOSE METER 144 mg/dL 70-110 H TESTED AT [address] (BEAKER) (test code [address] [facility] [place] = 1538) [address] POCT-GLUCOSE [id number] 06:07:00 Test Item Value Reference Range Interpretation Comments POC-GLUCOSE METER 124 mg/dL 70-110 H TESTED AT [address] (BEAKER) (test code [facility] [facility] [place] = 1538) [address] BASIC METABOLIC [id number] 05:26:00 Test Item Value Reference Range Interpretation [...] S NOT APPLICABLE FOR DIALYSIS PATIEN TS. [id number] 05:20:00 Test Item Value Reference Range Interpretation Comments MAGNESIUM (BEAKER) (test code = 2.4 mg/dL 1.5-3.0 627) CBC W/PLT COUNT & AUTO [id number] 05:19:00 Test Item Value Reference Range Interpretation [...] L 0.00-0.20 (test code = 417) POCT-GLUCOSE [id number] 19:59:00 Test Item Value Reference Range Interpretation Comments POC-GLUCOSE METER 198 mg/dL 70-110 H TESTED AT [address] ([facility]) (test code [facility] [facility] [place] = 1538) [address] POCT-GLUCOSE [id number] 16:34:00 Test Item Value Reference Range Interpretation Comments POC-GLUCOSE METER 230 mg/dL 70-110 H TESTED AT [address] ([facility] (test code [facility] [facility] [place] = 1538) [address] POCT-GLUCOSE [id number] 13:02:00 Test Item Value Reference Range Interpretation Comments POC-GLUCOSE METER 273 mg/dL 70-110 H TESTED AT [address] ([facility]) (test code [facility] [facility] [place] = 1538) [address] B-TYPE NATRIURETIC FACTOR (BNP)2017-04-04 06:55:00 Test Item Value Reference Range Interpretation Comments B-TYPE NATRIURETIC PEPTIDE (BEAKER) 824 pg/mL 0-100 H (test code = 700) BASIC METABOLIC [id number] 06:47:00 Test Item Value Reference Range Interpretation [...] S NOT APPLICABLE FOR DIALYSIS PATIEN TS. [id number] 06:41:00 Test Item Value Reference Range Interpretation Comments MAGNESIUM (BEAKER) (test code = 2.2 mg/dL 1.5-3.0 627) CBC W/PLT COUNT & AUTO [id number] 06:32:00 Test Item Value Reference Range Interpretation [...] 0-100 H (test code = 700) TROPONIN [id number] 12:05:00 Test Item Value Reference Range Interpretation [...] neurological disease, and persistent tachyarrhythmia.RAD, CHEST, 2 [id number] 11:59:00 Reason for exam:->SOBFINAL REPORT History: Shortness [...] MDReport Verified Date/Time: 04/03/2017 11:59:26 Reading Location: [facility] C013X Ortho Consult Reading Room BASIC METABOLIC [id number] 11:57:00 Test Item Value Reference Range Interpretation [...] PATIEN TS. CBC W/PLT COUNT & AUTO [id number] 11:42:00 Test Item Value Reference Range Interpretation [...] = 417) RAD, CHEST, 1 VIEW, NON [id number] 11:12:00Reason for exam:->follow up FINAL REPORT Chest, 1 view Clinical history: follow up Comparison: 03/25/2017Discussion: Left-sided pacemaker in position without pneumothorax. Small left pleural effusion is seen with atelectasis. The cardiac silhouette is enlarged with mild perihilar edema. No acute osseous abnormality. Signed: Jamir Mai MDReport Verified Date/Time: 03/27/2017 11:12:12 Reading Location: [facility] B1 C013X Ortho Consult Reading Room TROPONIN [id number] 08:29:00 Test Item Value Reference Range Interpretation Comments TROPONIN I (BEAKER) (test code = 0.47 ng/mL 0.00-0.15 HH 397) Troponin I (TnI) [...] = 700) CREATINE KINASE (CK), TOTAL AND [id number] 08:27:00 Test Item Value Reference Range Interpretation Comments CREATINE KINASE TOTAL (BEAKER) 303 U/L 40-250 H (test code = 380) CREATINE KINASE-MB (BEAKER) (test 5.9 ng/mL 0.0-4.9 H code = 750) CREATINE KINASE-MB INDEX (BEAKER) 1.9 % (test code = 395) CK-MB Reference Range:<5 Normal5-10 Borderline>10 AbnormalBASIC METABOLIC [id number] 08:18:00 Test Item Value Reference Range Interpretation [...] PATIEN TS. CBC W/PLT COUNT & AUTO [id number] 07:44:00 Test Item Value Reference Range Interpretation [...] L 0.00-0.20 (test code = 417) POCT-GLUCOSE [id number] 05:54:00 Test Item Value Reference Range Interpretation Comments POC-GLUCOSE METER 226 mg/dL 70-110 H TESTED AT [facility] [address] ([facility] (test code [address] [facility] [place] = 1538) [address] POCT-GLUCOSE [id number] 20:54:00 Test Item Value Reference Range Interpretation Comments POC-GLUCOSE METER 180 mg/dL 70-110 H TESTED AT [facility] ([facility]) (test code [address] [facility] [place] = 1538) [address] POCT-GLUCOSE [id number] 16:40:00 Test Item Value Reference Range Interpretation Comments POC-GLUCOSE METER 262 mg/dL 70-110 H TESTED AT [facility] [address] ([facility]) (test code [address] [facility] [place] = 1538) [address] LIPID [id number] 15:41:00 Test Item Value Reference Range Interpretation Comments TRIGLYCERIDES (BEAKER) (test code = 86 mg/dL 540) CHOLESTEROL (BEAKER) (test code = 203 mg/dL 631) HDL CHOLESTEROL (AKER) (test code 33 mg/dL = 976) LDL CHOLESTEROL CALCULATED (AKER) 153 mg/dL (test code = 633) Triglyceride Reference Range: Low Risk <150 Borderline 150-199 High Risk 200-499 Very High Risk >=500Cholesterol Reference Range: Low Risk <200 Borderline 200-239 High Risk >240HDL Cholesterol Reference Range: Low Risk >=60 High Risk <40LDL Cholesterol Reference Range: Optimal <100 Near Optimal 100-129 Borderline 130-159 High 160-189 Very High >=190TSH/FREE T4 IF [id number] 15:27:00 Test Item Value Reference Range Interpretation Comments THYROID STIMULATING HORMONE 4.34 uIU/mL 0.35-5.50 (BEAKER) (test code = 772) TROPONIN [id number] 15:18:00 Test Item Value Reference Range Interpretation [...] H (test code = 700) BASIC METABOLIC [id number] 15:03:00 Test Item Value Reference Range Interpretation Comments SODIUM (BEAKER) 141 meq/L 135-148 (test code = 381) POTASSIUM (BEAKER) 3.7 meq/L 3.6-5.5 (test code = 379) CHLORIDE (BEAKER) 104 meq/L 98-106 (test code = 382) CO2 (BEAKER) (test 28 meq/L - code = 355) BLOOD UREA NITROGEN 26 [...] NOT APPLICABLE FOR DIALYSIS PATIEN TS. HEMOGLOBIN [id number] 08:23:00 Test Item Value Reference Range Interpretation Comments HEMOGLOBIN A1C (BEAKER) (test code = 8.8 % 4.3-6.1 H 368) CBC W/PLT COUNT & AUTO [id number] 07:23:00 Test Item Value Reference Range Interpretation [...] L 0.00-0.20 (test code = 417) POCT-GLUCOSE [id number] 06:53:00 Test Item Value Reference Range Interpretation Comments POC-GLUCOSE METER 176 mg/dL 70-110 H TESTED AT [address] ([facility]) (test code [facility] = 1538) [address] TROPONIN [id number] 23:25:00 Test Item Value Reference Range Interpretation Comments TROPONIN I (BEAKER) (test code = 0.58 ng/mL 0.00-0.15 397) [...] 395) CK-MB Reference Range:<5 Normal5-10 Borderline>10 AbnormalPOCT-GLUCOSE [id number] 20:54:00 Test Item Value Reference Range Interpretation Comments POC-GLUCOSE METER 157 mg/dL 70-110 H TESTED AT [address] ([facility]) (test code [facility] = 1538) [address] TROPONIN [id number] 14:46:00 Test Item Value Reference Range Interpretation Comments TROPONIN I (BEAKER) (test code = 0.60 ng/mL 0.00-0.15 HH 397) Troponin I (TnI) [...] 0-100 H (test code = 700) PROTHROMBIN [id number] 14:42:00 Test Item Value Reference Range Interpretation Comments PROTIME (BEAKER) (test code = 11.4 seconds 9.3-12.0 759) INR (BEAKER) (test code = 370) 1.1 <=5.9 RECOMMENDED COUMADIN/WARFARIN INR THERAPY RANGESSTANDARD DOSE: 2.0 - 3.0 Includes: PROPHYLAXIS forvenous thrombosis, systemic embolization; TREATMENT for venous thrombosis and/or pulmonary embolus.HIGH RISK: Target INR is 2.5-3.5 for patients with mechanical heart valves.[id number] 14:42:00 Test Item Value Reference Range Interpretation Comments PARTIAL THROMBOPLASTIN TIME 27.0 seconds 23.0-35.0 (BEAKER) (test code = 760) CREATINE KINASE (CK), TOTAL AND [id number] 14:41:00 Test Item Value Reference Range Interpretation Comments CREATINE KINASE TOTAL (BEAKER) 328 U/L 40-250 H (test code = 380) CREATINE KINASE-MB (BEAKER) (test 5.9 ng/mL 0.0-4.9 H code = 750) CREATINE KINASE-MB INDEX (BEAKER) 1.8 % (test code = 395) CK-MB Reference Range:<5 Normal5-10 Borderline>10 AbnormalCOMPREHENSIVE METABOLIC [id number] 14:34:00 Test Item Value Reference Range Interpretation [...] PATIEN TS. CBC W/PLT COUNT & AUTO [id number] 14:04:00 Test Item Value Reference Range Interpretation [...] = 417) RAD, CHEST, 1 VIEW, NON [id number] 13:52:00Reason for exam:->SHORTNESS OF BREATHReason for exam:->EDEMAShould [...] MDReport Verified Date/Time: 03/25/2017 13:52:22 Reading Location: [facility] Radiology Reading Room POCT- GLUCOSE [id number] 12:04:00 Test Item Value Reference Range Interpretation Comments POC-GLUCOSE METER 171 mg/dL 70-110 H TESTED AT [facility] (BEAKER) (test code [address] [facility] [place] = 1538) [address] BASIC METABOLIC [id number] 08:14:00 Test Item Value Reference Range Interpretation [...] PATIEN TS. CBC W/PLT COUNT & AUTO [id number] 07:57:00 Test Item Value Reference Range Interpretation [...] L 0.00-0.20 (test code = 417) POCT-GLUCOSE [id number] 07:11:00 Test Item Value Reference Range Interpretation Comments POC-GLUCOSE METER 164 mg/dL 70-110 H TESTED AT [address] ([facility]) (test code [facility] [place] = 1538) [address] POCT-GLUCOSE [id number] 22:24:00 Test Item Value Reference Range Interpretation Comments POC-GLUCOSE METER 222 mg/dL 70-110 H TESTED AT [facility] ([facility]) (test code [facility] [facility] [place] = 1538) [address] POCT-GLUCOSE [id number] 17:12:00 Test Item Value Reference Range Interpretation Comments POC-GLUCOSE METER 187 mg/dL 70-110 H TESTED AT [address] ([facility]) (test code [facility] [facility] [place] = 1538) [address] POCT-GLUCOSE [id number] 17:12:00 Test Item Value Reference Range Interpretation Comments POC-GLUCOSE METER 190 mg/dL 70-110 H TESTED AT [address] ([facility]) (test code [facility] [facility] [place] = 1538) [address] POCT-GLUCOSE [id number] 05:55:00 Test Item Value Reference Range Interpretation Comments POC-GLUCOSE METER 181 mg/dL 70-110 H TESTED AT [address] ([facility]) (test code [facility] [facility] [place] = 1538) [address] POCT-GLUCOSE [id number] 21:23:00 Test Item Value Reference Range Interpretation Comments POC-GLUCOSE METER 305 mg/dL 70-110 H Baby teste d Mother ID ([facility]) (test code used/[facility] [address] AT [facility] = 1538) [address] [facility] [place] [address] POCT-GLUCOSE [id number] 19:05:00 Test Item Value Reference Range Interpretation Comments POC-GLUCOSE METER 181 mg/dL 70-110 H TESTED AT [address] ([facility]) (test code [facility] [facility] [place] = 1538) [address] POCT-GLUCOSE [id number] 19:04:00 Test Item Value Reference Range Interpretation Comments POC-GLUCOSE METER 252 mg/dL 70-110 H TESTED AT [address] ([facility]) (test code [facility] [facility] [place] = 1538) [address] POCT-GLUCOSE [id number] 19:04:00 Test Item Value Reference Range Interpretation Comments POC-GLUCOSE METER 175 mg/dL 70-110 H TESTED AT [address] ([facility]) (test code [facility] [facility] [place] = 1538) [address] POCT-GLUCOSE [id number] 06:14:00 Test Item Value Reference Range Interpretation Comments POC-GLUCOSE METER 212 mg/dL 70-110 H TESTED AT [facility] [address] ([facility]) (test code [address] [facility] [place] = 1538) [address] CREATINE KINASE (CK), TOTAL AND [id number] 03:39:00 Test Item Value Reference Range Interpretation Comments CREATINE KINASE TOTAL (AKER) 174 U/L 40-250 (test code = 380) CREATINE KINASE-MB (AKER) (test 4.7 ng/mL 0.0-4.9 code = 750) CREATINE KINASE-MB INDEX (AKER) 2.7 % (test code = 395) CK-MB [...] acidosis, acute neurological disease, and persistent tachyarrhythmia.LIPID [id number] 03:33:00 Test Item Value Reference Range Interpretation Comments TRIGLYCERIDES (AKER) (test code = 164 mg/dL 540) CHOLESTEROL (AKER) (test code = 217 mg/dL 631) HDL CHOLESTEROL (AKER) (test code 28 mg/dL = 976) LDL CHOLESTEROL CALCULATED (AKER) 156 mg/dL (test code = 633) Triglyceride Reference Range: Low Risk <150 Borderline 150-199 High Risk 200-499 Very High Risk >=500Cholesterol Reference Range: Low Risk <200 Borderline 200-239 High Risk >240HDL Cholesterol Reference Range: Low Risk >=60 High Risk <40LDL Cholesterol Reference Range: Optimal <100 Near Optimal 100-129 Borderline 130-159 High 160-189 Very High >=190BASIC METABOLIC [id number] 03:31:00 Test Item Value Reference Range Interpretation [...] GFR I S NOT APPLICABLE FOR DIALYSIS PATITAVARES TS. HEMOGLOBIN [id number] 03:30:00 Test Item Value Reference Range Interpretation Comments HEMOGLOBIN A1C (BEAKER) (test code = 9.7 % 4.3-6.1 H 368) CBC W/PLT COUNT & AUTO [id number] 03:18:00 Test Item Value Reference Range Interpretation [...] L 0.00-0.20 (test code = 417) POCT-GLUCOSE [id number] 21:13:00 Test Item Value Reference Range Interpretation Comments POC-GLUCOSE METER 285 mg/dL 70-110 H TESTED AT [address] ([facility]) (test code [facility] [facility] [place] = 1538) [address] POCT-GLUCOSE [id number] 21:13:00 Test Item Value Reference Range Interpretation Comments POC-GLUCOSE METER 288 mg/dL 70-110 H TESTED AT [address] ([facility]) (test code [facility] [facility] [place] = 1538) [address] CREATINE KINASE (CK), TOTAL AND [id number] 16:27:00 Test Item Value Reference Range Interpretation Comments CREATINE KINASE TOTAL (BEAKER) 202 U/L 40-250 (test code = 380) CREATINE KINASE-MB (BEAKER) (test 7.3 ng/mL 0.0-4.9 H code = 750) CREATINE KINASE-MB INDEX (BEAKER) 3.6 % (test code = 395) CK-MB [...] and persistent tachyarrhythmia.RAD, CHEST, 1 VIEW, NON [id number] 09:17:00Reason for exam:->chest painFINAL REPORT Chest one [...] Gonzales Verified Date/Time: 02/04/2017 09:17:01 Reading Location: [facility] Radiology Reading Room TROPONIN [id number] 09:14:00 Test Item Value Reference Range Interpretation [...] = 700) CREATINE KINASE (CK), TOTAL AND [id number] 09:13:00 Test Item Value Reference Range Interpretation Comments CREATINE KINASE TOTAL (BEAKER) 235 U/L 40-250 (test code = 380) CREATINE KINASE-MB (BEAKER) (test 6.0 ng/mL 0.0-4.9 H code = 750) CREATINE KINASE-MB INDEX (BEAKER) 2.6 % (test code = 395) CK-MB Reference Range:<5 Normal5-10 Borderline>10 AbnormalBASIC METABOLIC [id number] 09:05:00 Test Item Value Reference Range Interpretation [...] S NOT APPLICABLE FOR DIALYSIS PATIEN TS. [id number] 09:03:00 Test Item Value Reference Range Interpretation [...] is 2.5-3.5 for patients with mechanical heart valves.[id number] 09:00:00 Test Item Value Reference Range Interpretation Comments MAGNESIUM (BEAKER) (test code = 2.0 mg/dL 1.5-3.0 627) CBC W/PLT COUNT & AUTO [id number] 08:50:00 Test Item Value Reference Range Interpretation [...] = 700) CREATINE KINASE (CK), TOTAL AND [id number] 11:53:00 Test Item Value Reference Range Interpretation Comments CREATINE KINASE TOTAL (BEAKER) 228 U/L 40-250 (test code = 380) CREATINE KINASE-MB (BEAKER) (test 4.8 ng/mL 0.0-4.9 code = 750) CREATINE KINASE-MB INDEX (BEAKER) 2.1 % (test code = 395) CK-MB Reference Range:<5 Normal5-10 Borderline>10 AbnormalBASIC METABOLIC [id number] 11:52:00 Test Item Value Reference Range Interpretation [...] NOT APPLICABLE FOR DIALYSIS PATIEN TS. TROPONIN [id number] 11:40:00 Test Item Value Reference Range Interpretation Comments TROPONIN I (BEAKER) (test code = 0.65 ng/mL 0.00-0.15 397) Troponin I (TnI) levels [...] acidosis, acute neurological disease, and persistent tachyarrhythmia.PROTHROMBIN [id number] 10:16:00 Test Item Value Reference Range Interpretation [...] = 417) RAD, CHEST, 1 VIEW, NON [id number] 09:42:00Reason for exam:->SHORTNESS OF BREATHOn \\T\\ off [...] MDReport Verified Date/Time: 12/01/2016 09:42:01 Reading Location: [facility] Radiology Reading Room POCT-GLUCOSE [id number] 18:07:00 Test Item Value Reference Range Interpretation Comments POC-GLUCOSE METER 159 mg/dL 70-110 H TESTED AT [address] ([facility]) (test code [address] [facility] [place] = 1538) [address] POCT-GLUCOSE [id number] 13:56:00 Test Item Value Reference Range Interpretation Comments POC-GLUCOSE METER 218 mg/dL 70-110 H TESTED AT [address] ([facility]) (test code [address] [facility] [place] = 1538) 150[address] POCT-GLUCOSE [id number] 06:26:00 Test Item Value Reference Range Interpretation Comments POC-GLUCOSE METER 118 mg/dL 70-110 H TESTED AT [address] ([facility]) (test code [address] [facility] [place] = 1538) [address] HEMOGLOBIN [id number] 02:55:00 Test Item Value Reference Range Interpretation Comments HEMOGLOBIN A1C ([facility]) (test code = 9.3 % 4.3-6.1 H 368) TROPONIN [id number] 02:45:00 Test Item Value Reference Range Interpretation Comments TROPONIN I ([facility]) (test code = 0.04 ng/mL [...] Reference Range Interpretation Comments CREATINE KINASE TOTAL ([facility]) 253 U/L 40-250 H (test code = 380) CREATINE KINASE-MB ([facility]) (test 4.2 ng/mL 0.0-4.9 code = 750) CREATINE KINASE-MB INDEX ([facility]) 1.7 % (test code = 395) CK-MB Reference Range:<5 Normal5-10 Borderline>10 AbnormalLIPID PANEL 2016-11-02 02:41:00 Test Item Value Reference Range Interpretation Comments TRIGLYCERIDES ([facility]) (test code = 194 mg/dL 540) CHOLESTEROL [...] 130-159 High 160-189 Very High >=190BASIC METABOLIC [id number] 02:38:00 Test Item Value Reference Range Interpretation [...] PATIEN TS. CBC W/PLT COUNT & AUTO [id number] 02:37:00 Test Item Value Reference Range Interpretation [...] L 0.00-0.20 (test code = 417) POCT-GLUCOSE [id number] 21:41:00 Test Item Value Reference Range Interpretation Comments POC-GLUCOSE METER 222 mg/dL 70-110 H TESTED AT [address] (BEAKER) (test code [facility] [place] = 1538) [address] POCT-GLUCOSE [id number] 17:42:00 Test Item Value Reference Range Interpretation Comments POC-GLUCOSE METER 187 mg/dL 70-110 H TESTED AT [address] ([facility]) (test code [facility] = 1538) [address] TROPONIN [id number] 17:08:00 Test Item Value Reference Range Interpretation [...] 395) CK-MB Reference Range:<5 Normal5-10 Borderline>10 AbnormalPOCT-GLUCOSE [id number] 12:19:00 Test Item Value Reference Range Interpretation Comments POC-GLUCOSE METER 284 mg/dL 70-110 H TESTED AT [address] ([facility]) (test code [address] [facility] = 1538) [address] URINALYSIS W/ REFLEX URINE [id number] 08:37:00 Test Item Value Reference Range Interpretation [...] 0-100 H (test code = 700) CALCIUM, [id number] 06:41:00 Test Item Value Reference Range Interpretation Comments CALCIUM IONIZED (BEAKER) (test 1.14 mmol/L 1.12-1.27 code = 698) PH, BLOOD (BEAKER) (test code = 7.43 1810) CREATINE KINASE (CK), TOTAL AND [id number] 06:14:00 Test Item Value Reference Range Interpretation [...] 0.00-0.20 (test code = 417) BASIC METABOLIC [id number] 06:08:00 Test Item Value Reference Range Interpretation [...] NOT APPLICABLE FOR DIALYSIS PATIEN TS. PROTHROMBIN [id number] 06:01:00 Test Item Value Reference Range Interpretation Comments PROTIME (BEAKER) (test code = 10.2 seconds 9.3-12.0 759) INR (BEAKER) (test code = 370) 1.0 <=5.9 RECOMMENDED COUMADIN/WARFARIN INR THERAPY RANGESSTANDARD DOSE: 2.0 - 3.0 Includes: PROPHYLAXIS forvenous thrombosis, systemic embolization; TREATMENT for venous thrombosis and/or pulmonary embolus.HIGH RISK: Target INR is 2.5-3.5 for patients with mechanical heart valves.TROPONIN [id number] 05:35:00 Test Item Value Reference Range Interpretation [...] CK-MB Reference Range:<5 Normal5-10 Borderline>10 AbnormalBASIC METABOLIC [id number] 05:27:00 Test Item Value Reference Range Interpretation [...] PATIEN TS. CBC W/PLT COUNT & AUTO [id number] 05:11:00 Test Item Value Reference Range Interpretation [...]
[2021-04-04 04:06] LABS: Barbiturates NEGATIVE (NEGATIVE); Benzodiazepines NEGATIVE (NEGATIVE); Cocaine NEGATIVE (NEGATIVE); METHAMPHETAM NEGATIVE (NEGATIVE); Methadone NEGATIVE (NEGATIVE); Opiates NEGATIVE (NEGATIVE); Phencyclidine NEGATIVE (NEGATIVE); THC Cannibis NEGATIVE (NEGATIVE)
[2021-04-04 04:22] LABS: Absolute Lymphocytes (CBC) 1.2 K/uL (0.7-4.9); Hematocrit 37.8 % (39.6-49.0); Lymphocytes % 11.2 % (15.3-44.8); MPV 8.9 fL (7.6-11.3); RBC Red Blood Cell Count 3.96 M/uL (4.33-5.43)
[2021-04-04 04:35] LABS: Protime INR 1.63
[2021-04-04 04:45] LABS: SARS-COV-2 RT PCR NEGATIVE (NEGATIVE)
[2021-04-04 04:57] LABS: Albumin 2.3 g/dL (3.4-5.0); Bilirubin Direct 0.2 mg/dL (0-0.2); Bilirubin Total 0.6 mg/dL (0.2-1.0); Magnesium 1.8 mg/dL (1.8-2.4); Potassium 3.5 mmol/L (3.5-5.1); Protein, Total 6.9 g/dL (6.4-8.2)
[2021-04-04 05:02] LABS: Troponin (Emerg Dept Use Only) 0.67 ng/mL (0.0-0.045)
--- NOTE | 2021-04-04 05:17 | EDPHYS ---
Physician Documentation [facility] Name: Binu Mcelroy Age: 45 yrs Sex: Male : 1975 Arrival Date: 04/04/2021 Time: 02:15 Bed 26 Private MD: ED Physician Taras Garcia HPI: 04/04 03:33 This 45 yrs old Male presents to ER via Wheelchair with complaints of Chest Pain > 30 pkl y/o. 03:33 The patient or guardian reports chest pain that is located primarily in the anterior pkl chest wall, bilaterally. Onset: just prior to arrival, 4 hour(s) ago. The pain does not radiate. The chest pain is described as tightness. Historical: - Allergies: 02:26 No Known Allergies; vc1 - Home Meds: 02:26 Allopurinol Oral [Active]; amlodipine oral [Active]; Bumex 1 mg Oral tab 1 tab 2 times vc1 per day [Active]; carvedilol 12.5 mg Oral tab 1 tab 2 times per day [Active]; clopidogrel 75 mg Oral tab once daily [Active]; gabapentin 800 mg Oral tab 1 tab 3 times per day [Active]; gabapentin Oral [Active]; Imdur Oral [Active]; Insulin: Regular Sub-Q [Active]; metolazone 5 mg Oral tab Q 2 days [Active]; ProAir HFA inhalation [Active]; Symbicort inhalation [Active]; - PMHx: 02:26 CHF; CVA; diabetes mellitus; Myocardial infarction; Transient cerebral ischemia; vc1 - PSHx: 02:26 Heart Stents; Pacemaker/Defib; vc1 - Immunization history:: Adult Immunizations up to date, Client reports receiving the 2nd dose of the Covid vaccine, [employer]. - Social history:: Smoking status: Patient/guardian denies using tobacco, the patient reports quitting approximately 6 years ago. ROS: 03:33 Eyes: Negative for injury, pain, redness, and discharge, ENT: Negative for injury, pkl pain, and discharge, Neck: Negative for injury, pain, and swelling. 03:33 Cardiovascular: Positive for chest pain. 03:33 Respiratory: Negative for cough, shortness of breath. 03:33 Abdomen/GI: Negative for abdominal pain, nausea, vomiting, and diarrhea. 03:33 Back: Negative for acute changes. 03:33 : Negative for urinary symptoms. 03:33 MS/extremity: Positive for swelling, of the both legs. 03:33 Skin: Negative for acute changes. 03:33 Neuro: Negative for altered mental status, loss of consciousness. Exam: 03:33 Head/Face: Normocephalic, atraumatic. Eyes: Pupils equal round and reactive to light, pkl extra-ocular motions intact. Lids and lashes normal. Conjunctiva and sclera are non-icteric and not injected. Cornea within normal limits. Periorbital areas with no swelling, redness, or edema. ENT: Nares patent. No nasal discharge, no septal abnormalities noted. Tympanic membranes are normal and external auditory canals are clear. Oropharynx with no redness, swelling, or masses, exudates, or evidence of obstruction, uvula midline. Mucous membranes moist. Neck: Trachea midline, no thyromegaly or masses palpated, and no cervical lymphadenopathy. Supple, full range of motion without nuchal rigidity, or vertebral point tenderness. No Meningismus. Chest/axilla: Normal chest wall appearance and motion. Nontender with no deformity. No lesions are appreciated. Cardiovascular: Regular rate and rhythm with a normal S1 and S2. No gallops, murmurs, or rubs. Normal PMI, no JVD. No pulse deficits. Respiratory: Lungs have equal breath sounds bilaterally, clear to auscultation and percussion. No rales, rhonchi or wheezes noted. No increased work of breathing, no retractions or nasal flaring. 03:33 Abdomen/GI: Inspection: distension, that is moderate, Bowel sounds: normal, Palpation: abdomen is soft and non-tender, in all quadrants. 03:33 Back: Exam negative for acute changes. 03:33 : Exam negative for acute changes. 03:33 Musculoskeletal/extremity: Extremities: grossly normal except: noted in the both legs: swelling. 03:33 Skin: Exam negative for rash. 03:33 Neuro: Orientation: is normal, Mentation: is normal, Memory: is normal, Cranial nerves: grossly normal, Cerebellar function: is grossly normal, Motor: is normal, Sensation: is normal, Gait: is steady. Vital Signs: 02:19 BP 120 / 89; Pulse 93; Resp 16; Temp 98.9(TE); Pulse Ox 96% on R/A; Weight 113.4 kg; vc1 Height 5 ft. 10 in. (177.80 cm); Pain 6/10; 05:02 BP 117 / 84; Pulse 90; Resp 18; Temp 98.6; Pulse Ox 97% on R/A; mr2 10:05 BP 120 / 92 RA Supine (man/lg); Pulse 79; Resp 16; Temp 98.7(O); Pulse Ox 95% on R/A; ab2 11:13 BP 106 / 69 RA Supine (man/lg); Pulse 79; Resp 16 S; Temp 98.1(O); Pulse Ox 96% on R/A; ab2 11:58 BP 130 / 90 LA Sitting (man/lg); Pulse 89 MON; Resp 16 S; Pulse Ox 97% on R/A; ab2 02:19 Body Mass Index 35.87 (113.40 kg, 177.80 cm) vc1 MDM: 02:53 Patient medically screened. pkl 05:12 Data reviewed: vital signs, nurses notes, lab test result(s), EKG, radiologic studies, pkl plain films. ED course: Talked to Aníbal Jolley ( HANDLE MACHINE OPERATOR ) Admit to Tremayne Palmer. 04/04 03:04 Order name: Magnesium pkl 04/04 03:04 Order name: NT PRO-BNP pkl 04/04 03:04 Order name: PT-INR pkl 04/04 03:04 Order name: Troponin (emerg Dept Use Only) pkl 04/04 03:04 Order name: D-Dimer pkl 04/04 03:04 Order name: UDS; Complete Time: 04:46 pkl 04/04 03:04 Order name: COVID-19/FLU A+B (Document "Date of Onset" if Symptomatic); Complete Time: pkl 04:46 04/04 03:05 Order name: Basic Metabolic Panel; Complete Time: 05:03 EDMS 04/04 03:05 Order name: CBC with Automated Diff; Complete Time: 04:28 EDMS 04/04 03:05 Order name: Liver (Hepatic) Function; Complete Time: 05:04 EDMS 04/04 03:05 Order name: Magnesium; Complete Time: 05:04 EDMS 04/04 03:04 Order name: XRAY Chest (1 view) pkl 04/04 03:04 Order name: EKG; Complete Time: 03:05 pkl 04/04 03:04 Order name: Cardiac monitoring; Complete Time: 03:19 pkl 04/04 03:04 Order name: EKG - Nurse/Tech; Complete Time: 03:19 pkl 04/04 03:04 Order name: IV Saline Lock; Complete Time: 03:28 pkl 04/04 03:04 Order name: Labs collected and sent; Complete Time: 03:28 pkl 04/04 03:05 Order name: NT PRO-BNP; Complete Time: 05:03 EDMS 04/04 03:05 Order name: Protime (+INR); Complete Time: 04:46 EDMS 04/04 03:05 Order name: Troponin (Emerg Dept Use Only); Complete Time: 05:03 EDMS 04/04 03:05 Order name: D-Dimer; Complete Time: 04:38 EDMS 04/04 12:04 Order name: Glucose, Ancillary Testing EDMS 04/04 12:46 Order name: Troponin I EDMS 04/04 17:45 Order name: Glucose, Ancillary Testing EDMS 04/04 19:05 Order name: Troponin I EDMS 04/04 19:50 Order name: Glucose, Ancillary Testing EDMS 04/04 03:04 Order name: O2 Per Protocol; Complete Time: 03:19 pkl 04/04 03:04 Order name: O2 Sat Monitoring; Complete Time: 03:19 pkl Administered Medications: 06:00 Drug: Lasix (furosemide) 60 mg Route: IVP; Site: left antecubital; mr2 10:04 Follow up: Response: No adverse reaction keller Disposition Summary: 04/04/21 05:16 Hospitalization Ordered Hospitalization Status: Inpatient Admission pkl Provider: Tremayne Palmer pkviv Condition: Stable pkl Problem: new pkl Symptoms: are unchanged pkl Bed/Room Type: Standard pkl Location: Telemetry/MedSurg (Inpatient)(04/04/21 20:13) cg Room Assignment: 216(04/04/21 20:13) cg Diagnosis - Chest pain. Elevated Troponin pkl Forms: - Medication Reconciliation Form pkl - SBAR form pkl Signatures: Dispatcher [employer] Taras Bolton MD MD pkl Aníbal Jolley FNP-C [employer]CTOR-Cla1 Aline Person RN RN cg Angela Orozco Mike RN RN mr2 Danielle Luis RN RN vc1 Bhavana Leon RN Corrections: (The following items were deleted from the chart) 03:27 03:05 BASIC METABOLIC PANEL+C.LAB.BRZ ordered. EDMS EDMS 03:27 03:05 CBC+H.LAB.BRZ ordered. EDMS EDMS 03:27 03:05 HEPATIC FUNCTION+C.LAB.BRZ ordered. EDMS EDMS 10:50 05:16 Telemetry/MedSurg (Inpatient) pkl eb 10:50 05:16 pkl eb 10:50 10:50 eb eb 20:13 10:50 [facility] ER HOLD eb cg 20:13 10:50 ERHOLD- eb cg
--- NOTE | 2021-04-04 05:17 | ER ---
Nurse's Notes [facility] Name: Binu Mcelroy Age: 45 yrs Sex: Male : 1975 Arrival Date: 04/04/2021 Time: 02:15 Bed 26 Private MD: Diagnosis: Chest pain. Elevated Troponin Presentation: 04/04 02:19 Chief complaint: Patient states: The past 3-4 hours I have felt some chest tightness vc1 that radiates to the skeletal bones. Coronavirus screen: Vaccine status: Patient reports receiving the 2nd dose of the covid vaccine. [employer] for shot 1\\T\\2 and for the booster. Ebola Screen: No symptoms or risks identified at this time. Initial Sepsis Screen: Does the patient meet any 2 criteria? No. Patient's initial sepsis screen is negative. Does the patient have a suspected source of infection? No. Patient's initial sepsis screen is negative. Risk Assessment: Do you want to hurt yourself or someone else? Patient reports no desire to harm self or others. Onset of symptoms was April 03, 2021 at 22:30. Care prior to arrival:. 02:19 Method Of Arrival: Wheelchair vc1 02:19 Acuity: CRISS 2 vc1 Triage Assessment: 02:29 General: Appears in no apparent distress. Behavior is calm, cooperative, appropriate vc1 for age. Pain: Complains of pain in chest Pain radiates to right supraclavicular area and left supraclavicular area. Cardiovascular: Reports chest pain, since ABOUT 10 OCLOCK LAST NIGHT (04/03/20). Historical: - Allergies: 02: No Known Allergies; vc1 - Home Meds: 02:26 Allopurinol Oral [Active]; amlodipine oral [Active]; Bumex 1 mg Oral tab 1 tab 2 times vc1 per day [Active]; carvedilol 12.5 mg Oral tab 1 tab 2 times per day [Active]; clopidogrel 75 mg Oral tab once daily [Active]; gabapentin 800 mg Oral tab 1 tab 3 times per day [Active]; gabapentin Oral [Active]; Imdur Oral [Active]; Insulin: Regular Sub-Q [Active]; metolazone 5 mg Oral tab Q 2 days [Active]; ProAir HFA inhalation [Active]; Symbicort inhalation [Active]; - PMHx: 02:26 CHF; CVA; diabetes mellitus; Myocardial infarction; Transient cerebral ischemia; vc1 - PSHx: 02:26 Heart Stents; Pacemaker/Defib; vc1 - Immunization history:: Adult Immunizations up to date, Client reports receiving the 2nd dose of the Covid vaccine, [employer]. - Social history:: Smoking status: Patient/guardian denies using tobacco, the patient reports quitting approximately 6 years ago. Screenin:31 Abuse screen: Denies threats or abuse. Nutritional screening: No deficits noted. vc1 Tuberculosis screening: No symptoms or risk factors identified. Fall Risk None identified. Assessment: 02:31 Pain: Pain began suddenly, 4 hours ago. vc1 11:57 Reassessment: patient urinated 500cc into urinal at bedside with no assistance. ab2 Vital Signs: 02:19 BP 120 / 89; Pulse 93; Resp 16; Temp 98.9(TE); Pulse Ox 96% on R/A; Weight 113.4 kg; vc1 Height 5 ft. 10 in. (177.80 cm); Pain 6/10; 05:02 BP 117 / 84; Pulse 90; Resp 18; Temp 98.6; Pulse Ox 97% on R/A; mr2 10:05 BP 120 / 92 RA Supine (man/lg); Pulse 79; Resp 16; Temp 98.7(O); Pulse Ox 95% on R/A; ab2 11:13 BP 106 / 69 RA Supine (man/lg); Pulse 79; Resp 16 S; Temp 98.1(O); Pulse Ox 96% on R/A; ab2 11:58 BP 130 / 90 LA Sitting (man/lg); Pulse 89 MON; Resp 16 S; Pulse Ox 97% on R/A; ab2 02:19 Body Mass Index 35.87 (113.40 kg, 177.80 cm) vc1 ED Course: 02:15 Patient arrived in ED. wm 02:26 Triage completed. vc1 02:31 Arm band placed on left wrist. vc1 02:31 Patient has correct armband on for positive identification. vc1 02:53 Taras Garcia MD is Attending Physician. pkl 03:26 Floyd Mejias, SHIREEN is Primary Nurse. mr2 03:27 Troponin (emerg Dept Use Only) Sent. mr2 03:27 PT-INR Sent. mr2 03:27 NT PRO-BNP Sent. mr2 03:27 Magnesium Sent. mr2 03:27 D-Dimer Sent. mr2 03:27 D-Dimer Sent. mr2 03:27 Troponin (Emerg Dept Use Only) Sent. mr2 03:27 Magnesium Sent. mr2 03:27 NT PRO-BNP Sent. mr2 03:27 Protime (+INR) Sent. mr2 03:27 CBC with Automated Diff Sent. mr2 03:27 Liver (Hepatic) Function Sent. mr2 03:27 Basic Metabolic Panel Sent. mr2 03:27 COVID-19/FLU A+B (Document "Date of Onset" if Symptomatic) Sent. mr2 03:27 UDS Sent. mr2 04:26 XRAY Chest (1 view) In Process Unspecified. EDMS 05:03 vp ancillary on. mr2 05:03 No provider procedures requiring assistance completed. Inserted saline lock: 18 gauge mr2 in left antecubital area, using aseptic technique. Patient maintains SpO2 saturation greater than 95% on room air. 05:15 Tremayne Palmer MD is Hospitalizing Provider. pkl 11:56 Resting quietly. Patient requests food. Safety Checks:. Safety Checks:. ab2 11:56 Door closed. Noise minimized. Warm blanket given. Diet tray ordered. Head of bed ab2 elevated. 19:12 Primary Nurse role handed off by Floyd Meijas, SHIREEN kd3 19:12 Debra Mayer, SHIREEN is Primary Nurse. kd3 Administered Medications: 06:00 Drug: Lasix (furosemide) 60 mg Route: IVP; Site: left antecubital; mr2 10:04 Follow up: Response: No adverse reaction keller Outcome: 05:16 Decision to Hospitalize by Provider. pkl 21:11 Patient left the ED. kd3 Signatures: Dispatcher [employer] EDMS Taras Garcai MD MD pkl Marsh, Wendy Floyd Mejias, SHIREEN RN mr2 Debra Mayer, SHIREEN RN kd3 Kika-StageBhavana jett RN RN ha Bleininger, Alexis ab2 Danielle Luis RN RN vc1 Corrections: (The following items were deleted from the chart) 03:27 03:26 BASIC METABOLIC PANEL+C.LAB.BRZ drawn and sent. mr2 EDMS : 03:26 CBC+H.LAB.BRZ drawn and sent. mr2 EDMS 03:27 HEPATIC FUNCTION+C.LAB.THOMAS drawn and sent. mr2 EDMS
--- NOTE | 2021-04-04 05:31 | P.HP ---
Certification for Inpatient Patient admitted to: Inpatient With expected LOS: >2 Midnights Patient will require the following post-hospital care: None Practitioner: I am a practitioner with admitting privileges, knowledge of patient current condition, hospital course, and medical plan of care. Services: Services provided to patient in accordance with Admission requirements found in Title 42 Section 412.3 of the Code of Federal Regulations <Aníbal Jolley - Last Filed: 04/04/21 05:26> Patient History Date of Service: 04/04/21 Primary Care Provider: [facility], cardiology Dr. East Reason for admission: CHF exacerbation History of Present Illness: 45-year-old male with history of chronic systolic congestive heart failure, pulmonary embolism, CAD with pacemaker, CKD 4, diabetes mellitus type 2, hypertension, hyperlipidemia, COPD presents emergency for chest pain. Patient reports pressure-like chest pain that started last night lasting for about 4 hours described as pressure-like. Patient also reports that he has been out of his Bumex for the last 2 to 3 days and noticed increased swelling and the inability to sleep lying down. Patient was evaluated in the emergency department labs were significant for troponin 0.67 BNP 16,422 creatinine 2.88 GFR 24, glucose 319 D-dimer 1076 chest x-ray appears to show volume overload pattern. Emergency department contacted me for admission to hospitalist service for suspected CHF exacerbation, NSTEMI. - Past Medical/Surgical History Diabetic: Yes -: Systolic congestive heart failure -: CAD -: Diabetes mellitus type 2insulin-dependent -: Hypertension -: CKD4 -: Gout -: History of PE on anticoagulation therapy -: Cardiac stents -: Pacemaker/defibrillator Psychosocial/ Personal History: Patient lives at home with his fiance - Family History Family History: Reviewed- Non-Contributory - Social History Smoking Status: Current some day smoker Alcohol use: No CD- Drugs: No Caffeine use: Yes Place of Residence: Home <Aníbal Jolley - Last Filed: 04/04/21 05:26> Date of Service: 04/04/21 <Tremayne Palmer - Last Filed: 04/04/21 15:26> Allergies No Known Allergies Allergy (Verified 01/02/21 09:20) Home Medications: Bumetanide [Bumex*] 1 tab PO BID 01/02/21 Carvedilol [Coreg] 1 tab PO BID 01/02/21 Clopidogrel Bisulfate [Plavix*] 1 tab PO DAILY 01/02/21 Gabapentin 1 tab PO TID 01/02/21 Insulin Glargine,Hum.rec.anlog [Lantus] 50 units SQ BID 01/02/21 Insulin Lispro [Humalog] See Protocol SQ TID 01/02/21 Isosorbide Mononitrate [Isosorbide Mononitrate ER] 1 tab PO DAILY 01/02/21 Rosuvastatin Calcium [Crestor] 1 tab PO DAILY 01/02/21 metOLazone [Metolazone] 1 tab PO DAILY 01/02/21 Allopurinol 50 mg PO SEECOM 02/03/21 Amlodipine [Norvasc*] 5 mg PO DAILY 02/03/21 Albuterol Sulfate [Proair Hfa] 2 puff IH TID PRN #1 hfa.aer.ad 02/08/21 Budesonide/Formoterol Fumarate [Symbicort 160-4.5 Mcg Inhaler] 2 puff IH BID #1 hfa.aer.ad 02/08/21 Apixaban [Eliquis] 5 mg PO BID #60 tablet 03/03/21 Calcitrol [Rocaltrol*] 0.25 mcg PO Q48H #15 cap 03/03/21 levoFLOXacin [Levaquin*] 750 mg PO Q48H #3 tab 03/03/21 Review of Systems 10-point ROS is otherwise unremarkable Respiratory: Shortness of Breath Cardiovascular: Chest Pain, Orthopnea, Edema <AttemAníbal manning Lee - Last Filed: 04/04/21 05:26> Physical Examination - Physical Exam General: Alert, In no apparent distress, Oriented x3 HEENT: Atraumatic, PERRLA, Mucous membr. moist/pink, EOMI, Sclerae nonicteric Neck: Supple, 2+ carotid pulse no bruit, No LAD, Without JVD or thyroid abnormality Respiratory: Diminished, Crackles/rales Cardiovascular: Normal S1 S2, Edema, Systolic murmur Capillary refill: <2 Seconds Gastrointestinal: Normal bowel sounds, No tenderness Musculoskeletal: No tenderness Integumentary: No rashes Neurological: Normal speech, Normal strength at 5/5 x4 extr, Normal tone, Normal affect - Studies Laboratory Data (last 24 hrs) 04/04/21 04:00: PT 18.8 H, INR 1.63 04/04/21 04:00: WBC 10.90, Hgb 12.2 L, Hct 37.8 L, Plt Count 267 04/04/21 04:00: Sodium 138, Potassium 3.5, BUN 66 H, Creatinine 2.88 H, Glucose 319 H, Magnesium 1.8, Total Bilirubin 0.6, AST 16, ALT 27, Alkaline Phosphatase 106 <Aníbal Jolley - Last Filed: 04/04/21 05:26> - Studies Laboratory Data (last 24 hrs) 04/04/21 04:00: PT 18.8 H, INR 1.63 04/04/21 04:00: WBC 10.90, Hgb 12.2 L, Hct 37.8 L, Plt Count 267 04/04/21 04:00: Sodium 138, Potassium 3.5, BUN 66 H, Creatinine 2.88 H, Glucose 319 H, Magnesium 1.8, Total Bilirubin 0.6, AST 16, ALT 27, Alkaline Phosphatase 106 <Tremayne Palmer - Last Filed: 04/04/21 15:26> Assessment and Plan - Plan Assessment: Chest pain, elevated troponin suspect acute on chronic systolic congestive heart failure Recently diagnosed pulmonary embolism on chronic anticoagulation therapy with Eliquis CAD with history of pacemaker placement CKD 4 Diabetes type 2insulin-dependent with hyperglycemia Hypertension Hyperlipidemia COPD with history of tobacco abuse History of CVA Plan: Chest pain, elevated troponin suspect acute on chronic systolic congestive heart failure: Trend troponin, monitor on telemetry, cardiology consulted placed. 1500 cc/day fluid restriction, daily weights. We will diurese with Lasix 40 mg IV 3 times daily in addition to continuing patient's metolazone. Appreciate further input from cardiology. Last echocardiogram performed on 02/07/2021 demonstrated ejection fraction of 28%. Cardiology recommended continuing current regiment but would need to discuss heart transplantation. Spoke with patient at this who stated that he was not able to afford this option. Recently diagnosed pulmonary embolism on chronic anticoagulation therapy with Eliquis: Patient has been compliant with Eliquis but reports that he would not be able to afford it after the end of this month. May benefit from discussion with social work administrator regarding options. CAD with history of pacemaker placement: Home medications continue to monitor on telemetry CKD 4: Similar to baseline, continue with diuresis monitor kidney function closely consult nephrology as necessary for worsening. Diabetes type 2insulin-dependent with hyperglycemia: ACH S Accu-Chek, sliding scale insulin therapy. Patient takes Lantus 50 units subcu twice daily at home, will cut down to 35 units twice daily while in hospital and adjust as necessary. Hypertension: Obtain and continue medications Hyperlipidemia: Obtain and continue medications COPD with history of tobacco abuse: As needed breathing treatments History of CVA: Continue medications DVT PPX: Continue Eliquis Code status: Full code Discharge Plan: Home Plan to discharge in: 72 Hours - Advance Directives Does patient have a Living Will: No Does patient have a Durable POA for Healthcare: No - Code Status/Comfort Care Code Status Assessed: Yes (Full code) Critical Care: No Time Spent Managing Pts Care (In Minutes): 55 <Aníbal Jolley - Last Filed: 04/04/21 05:26> - Plan Patient seen and examined on rounds earlier this morning, shortly after admission. Agree with plan of care as noted above. Cardiology consulted Continue diuresis Nephrology consulted given significant history of CKD and need for diuresis We will monitor closely Patient reports not taking medication for few days, secondary to cost issues Social work consulted <Tremayne Palmer - Last Filed: 04/04/21 15:26>
[2021-04-04] MEDS ORDERED: FUROSEMIDE 20 MG/ 2ML VIAL ONE (05:53)
[2021-04-04] MEDS ORDERED: FUROSEMIDE 40 MG/4 ML VIAL ONE ×2 (05:53→12:04)
--- NOTE | 2021-04-04 09:08 | RAD REPORT ---
EXAM DESCRIPTION: RAD - Chest Single View - 04/04/2021 4:26 am CLINICAL HISTORY: CHEST PAIN COMPARISON: Portable March 03, 2021 TECHNIQUE: AP portable chest image was obtained 04/04/2021 4:26 am . FINDINGS: Lung volumes are low. Interstitial and alveolar opacities are present with no focal area o f dense consolidation. Cardiomegaly is present with vascular engorgement. Left subclavian pacemaker i s in place. No pneumothorax or large pleural effusion. No acute bony abnormality seen. No acute aorti c findings suspected. IMPRESSION: Mild to moderate CHF/ volume overload findings are present. Failure/ volume overload etiology is favored over COVID-19 pneumonia or other airspace infectious pro cess.
--- NOTE | 2021-04-04 10:04 | EKG ---
Test Date: 2021-04-04 Test Time: 02:46:21 [employer] Tuber Machine Operator: ARMIN MEASUREMENT RESULTS: Intervals: Rate: 105 [place]: QRSD: 34 QT: 322 QTc: 425 [place]: P: TX: QRS: 8 T: 132 INTERPRETIVE STATEMENTS: Poor data quality, interpretation may be adversely affected artifact Electronically Signed On 04-04-21 10:04:18 THERAPIST PHYS by Dale East
[2021-04-04] MEDS: INSULIN -REGULAR HUMAN 50 UNIT/0.5 ML ML SQ SCH ×3 (11:42→19:55)
[2021-04-04] MEDS: APIXABAN 5 MG TABLET PO SCH ×2 (11:42→19:55)
[2021-04-04] MEDS: AMLODIPINE 5 MG TAB PO SCH (11:42)
[2021-04-04] MEDS: FUROSEMIDE 40 MG/4 ML VIAL IV SCH ×2 (11:42→17:00)
[2021-04-04] MEDS: INSULIN GLARGINE 100 UNIT/ML SQ SCH ×2 (11:42→19:56)
[2021-04-04] MEDS: ISOSORBIDE MONO SR 30 MG TAB PO SCH ×2 (11:42)
[2021-04-04] MEDS ORDERED: ONDANSETRON 4 MG/2 ML VIAL IV PRN (11:42)
[2021-04-04] MEDS: METOLAZONE 5 MG TABLET PO SCH (11:42)
[2021-04-04] MEDS: CLOPIDOGREL 75 MG TABLET PO SCH (11:42)
[2021-04-04] MEDS: carvediloL 12.5 MG TAB PO SCH ×2 (11:42→18:00)
[2021-04-04] MEDS ORDERED: carvediloL 6.25 MG TAB ONE (12:03)
[2021-04-04] MEDS ORDERED: CLOPIDOGREL 75 MG TABLET ONE (12:03)
[2021-04-04] MEDS ORDERED: INSULIN GLARGINE 100 UNIT/ML SQ ONE ×2 (12:03→19:53)
[2021-04-04] MEDS ORDERED: APIXABAN 5 MG TABLET ONE ×2 (12:03→19:53)
[2021-04-04] MEDS ORDERED: AMLODIPINE 5 MG TAB ONE (12:03)
[2021-04-04] MEDS ORDERED: INSULIN -REGULAR HUMAN 50 UNIT/0.5 ML ML ONE ×4 (12:05→20:12)
--- NOTE | 2021-04-04 13:19 | P.CNS ---
Date of Consult: 04/04/21 Primary Care Provider: [facility], cardiology Dr. 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 Serum creatinine on admission was elevated at 2.9, with elevated BNP, and check chest x-ray showing pulmonary edema. He is admitted for acute on chronic CHF with KARYN. Allergies No Known Allergies Allergy (Verified 04/04/21 21:27) Home Medications: Bumetanide [Bumex*] 1 tab PO BID 01/02/21 Carvedilol [Coreg] 1 tab PO BID 01/02/21 Clopidogrel Bisulfate [Plavix*] 1 tab PO DAILY 01/02/21 Gabapentin 1 tab PO TID 01/02/21 Insulin Glargine,Hum.rec.anlog [Lantus] 55 units SQ BID 01/02/21 Insulin Lispro [Humalog] See Protocol SQ TID 01/02/21 Isosorbide Mononitrate [Isosorbide Mononitrate ER] 1 tab PO DAILY 01/02/21 Rosuvastatin Calcium [Crestor] 1 tab PO DAILY 01/02/21 metOLazone [Metolazone] 1 tab PO DAILY 01/02/21 Allopurinol 50 mg PO SEECOM 02/03/21 Amlodipine [Norvasc*] 5 mg PO DAILY 02/03/21 Apixaban [Eliquis] 5 mg PO BID #60 tablet 03/03/21 Calcitrol [Rocaltrol*] 0.25 mcg PO Q48H #15 cap 03/03/21 - Past Medical/Surgical History Diabetic: Yes -: Systolic congestive heart failure -: CAD -: Diabetes mellitus type 2insulin-dependent -: Hypertension -: CKD4 -: Gout -: History of PE on anticoagulation therapy -: Cardiac stents -: Pacemaker/defibrillator Psychosocial/ Personal History: Patient lives at home with his fiance - Social History Smoking Status: Former smoker Alcohol use: No CD- Drugs: No Caffeine use: Yes Place of Residence: Home Review of Systems General: Weakness Eyes: Unremarkable ENT: Unremarkable Respiratory: SOB with Excertion Cardiovascular: Chest Pain Gastrointestinal: No Distention Genitourinary: Unremarkable Musculoskeletal: Unremarkable Integumentary: Unremarkable Neurological: Unremarkable Lymphatics: Unremarkable Physical Examination Temp Pulse Resp BP Pulse Ox 133/94 H 97 04/04/21 12:00 04/04/21 12:00 General: Other (appears as his stated age) HEENT: Atraumatic, Normocephalic Neck: Supple, JVD not distended Respiratory: Crackles/rales (bibasilar), Other (symmetric chest expansion) Cardiovascular: Edema Gastrointestinal: Soft and benign, No guarding Musculoskeletal: No clubbing, Swelling Integumentary: No warmth Neurological: Normal speech, Normal tone Urinary: Other (no bladder distention) External genitalia: Deferred Rectal: Deferred Laboratory Data (last 24 hrs) 04/04/21 04:00: PT 18.8 H, INR 1.63 04/04/21 04:00: WBC 10.90, Hgb 12.2 L, Hct 37.8 L, Plt Count 267 04/04/21 04:00: Sodium 138, Potassium 3.5, BUN 66 H, Creatinine 2.88 H, Glucose 319 H, Magnesium 1.8, Total Bilirubin 0.6, AST 16, ALT 27, Alkaline Phosphatase 106 Conclusions/Impression: # KARYN 2/2 prerenal state +/- ATN 2/2 hyperglycemia-induced osmotic diuresis +/- CRS1 Hx of 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 has chronic serum bicarb elevation. May have developed secondary hyperaldosteronism. F/u urine Na + K to assess for secondary hyperaldo & need for adding leah minerva to optimize natriuresis. LVEF 28% on most recent TTE. LifeVest per Cardiology. +trop leak, BNP sig elevated Continue IV lasix Low Na/heart-healthy diet Do not restrict by mouth fluid intake as above Weigh daily # Htn Continue current BP medication regimen # History of pulmonary embolism Eliquis # COPD Per primary team
[2021-04-04 21:39] VITALS: BMI 35.1
[2021-04-05] MEDS: FUROSEMIDE 40 MG/4 ML VIAL IV SCH ×2 (01:08→10:00)
[2021-04-05 01:47] LABS: Urine Appearance CLEAR (Clear); Urine Bilirubin NEGATIVE (Negative); Urine Blood 1+ (Negative); Urine Color YELLOW (Yellow); Urine Glucose TRACE (Negative); Urine Microscopic Reflex ORDER UMIC; Urine Protein 3+ (Negative); Urine Specific Gravity 1.015 (1.005-1.030); Urine Urobilinogen 0.2 mg/dL (0.2-1.0)
[2021-04-05 01:55] LABS: Urine Amorphous Sediment 1+ /HPF (NONE SEEN); Urine Bacteria 20-50 /HPF (NONE SEEN); Urine Mucus 2+ /HPF (NONE SEEN)
--- NOTE | 2021-04-05 05:57 | P.PN ---
Date of Service: 04/05/21
[2021-04-05] MEDS: carvediloL 12.5 MG TAB PO SCH ×2 (06:13→17:00)
[2021-04-05 06:15] LABS: Absolute Lymphocytes (CBC) 1.3 K/uL (0.7-4.9); Hematocrit 36.1 % (39.6-49.0); Lymphocytes % 15.5 % (15.3-44.8); MPV 8.9 fL (7.6-11.3); RBC Red Blood Cell Count 3.84 M/uL (4.33-5.43)
[2021-04-05 06:53] LABS: Albumin 2.2 g/dL (3.4-5.0); Bilirubin Total 0.6 mg/dL (0.2-1.0); Magnesium 1.9 mg/dL (1.8-2.4); Potassium 3.2 mmol/L (3.5-5.1); Protein, Total 6.7 g/dL (6.4-8.2); Thyroid Stimulating Hormone 1.96 uIU/mL (0.360-3.740)
[2021-04-05] MEDS: INSULIN -REGULAR HUMAN 50 UNIT/0.5 ML ML SQ SCH ×4 (07:30→22:27)
[2021-04-05] MEDS: INSULIN GLARGINE 100 UNIT/ML SQ SCH ×2 (09:00→22:31)
[2021-04-05 09:59] LABS: UR PROTEIN 393.5 mg/dL (<11.9); Urine Protein/Creatinine Ratio 6.9 ratio (<0.15)
[2021-04-05] MEDS: ISOSORBIDE MONO SR 30 MG TAB PO SCH (10:00)
[2021-04-05] MEDS: CLOPIDOGREL 75 MG TABLET PO SCH (10:00)
[2021-04-05] MEDS: METOLAZONE 5 MG TABLET PO SCH (10:00)
[2021-04-05] MEDS: APIXABAN 5 MG TABLET PO SCH ×2 (10:00→22:25)
[2021-04-05] MEDS: AMLODIPINE 5 MG TAB PO SCH (10:00)
--- NOTE | 2021-04-05 13:50 | EKG ---
Test Date: 2021-04-04 Test Time: 02:47:27 Microfilming Document Preparer: ARMIN MEASUREMENT RESULTS: Intervals: Rate: 90 NJ: 128 QRSD: 114 QT: 420 QTc: 513 [place]: P: 68 NJ: 128 QRS: -26 T: 157 INTERPRETIVE STATEMENTS: Sinus rhythm with frequent and consecutive premature ventricular complexes Possible Left atrial enlargement Possible Inferior infarct, age undetermined Possible Anterolateral infarct, age undetermined Prolonged QT Abnormal ECG Compared to ECG 04/04/2021 02:46:21 Ventricular premature complex(es) now present Myocardial infarct finding now present Prolonged QT interval now present Electronically Signed On 04-05-21 13:47:47 CROWN BUFFER by Dale East
--- NOTE | 2021-04-05 13:51 | CON ---
Date of Consultation: 04/04/2021 Reason For Consultation: Mr. Mcelroy was admitted on 04/04/[address] Palmer for congestive heart matilde abdalla. History Of Present Illness: Mr. cMelroy is 45. He is known to have severe systolic congestive heart failure and has had multiple admission. He also has had history of CVA, diabetes, coronary artery di sease, coronary artery stent, pacemaker defibrillators. He comes in with shortness of breath as usua l. He was taking most of his medication. Denied any chest pain or syncope or palpitation or fever o r chills. Allergies: NONE. Review of Systems: Negative. Social History: Negative. Family History: Negative. Medications: Include amlodipine, Bumex, carvedilol, Plavix, gabapentin, insulin, metolazone, ProAir, and Symbicort. Physical Examination: Vital Signs: Blood pressure was 117/84, pulse was 90, sinus rhythm, respiratory rate was 18. He was afebrile at 98.6. HEENT: Negative. Neck: Supple. No bruit. Chest: Revealed rales at both bases. Cardiac: Revealed a paced rhythm. No murmurs, gallops, or rubs. Abdomen: Benign. Extremities: Revealed 1+ edema. Pulses are present bilaterally and symmetrically. Neurologic: He was nonfocal. Skin: Dry and intact. Laboratory Data: D-dimer 1076, creatinine was 2.88. His glucose was 219. Troponin 0.67. BNP was 1 6422. Impression And Plan: Acute on chronic systolic congestive heart failure exacerbation. He has an eje ction fraction that is definitely less than 30%. He has a defibrillator pacemaker, is on carvedilol. He is on Bumex. He is on metolazone. He is not a candidate for KAREN inhibitors or Xarelto because of his renal dysfunction. I would continue his present regimen, diurese him with IV Lasix and obtain nephrology consultation as usual. Continue his other medications include amlodipine, Eliquis, Plavi x, and isosorbide as well as carvedilol and metolazone obviously. I think we need to try to get soci al worker to see him for help down the road. I think he should really see the transplant service in [place]. I will discuss that with him further the next time I see him in the office if he comes to s ee me. LEXI/EUGENIO Voice ID: [id number] Report ID: [id number]
--- NOTE | 2021-04-05 15:02 | P.PN ---
Date of Service: 04/05/21 Subjective: Improving, breathing more comfortably on room air, able to lay more flat without dyspnea Lower extremity swelling improving, feels like 50% back to normal No fever, no dysuria No new complaints/concerns ROS: 10 point ROS as noted above, otherwise negative Physical exam GEN: Alert, oriented, NAD HEENT: Normal conjunctiva, sclera anicteric CV: Regular rate and rhythm, 2+ edema LLE, 1+ edema RLE Pulm: Nonlabored respirations on room air, minimal bibasilar crackles ABD: Soft, nontender, nondistended Neuro: Normal speech, normal affect Problem List Chest pain, elevated troponin suspect acute on chronic systolic congestive heart failure Recently diagnosed pulmonary embolism on chronic anticoagulation therapy with Eliquis CAD with history of pacemaker placement CKD 4 Diabetes type 2insulin-dependent with hyperglycemia Hypertension Hyperlipidemia COPD with history of tobacco abuse History of CVA Troponin trended flat, telemetry without any concerns. Cardiology consulted, recommended treatment for acute on chronic CHF exacerbation Patient will need to follow-up as an outpatient, will need referral to heart transplant. No further work-up inpatient currently Diuresing well with IV Lasix. Renal function stable. Nephrology following Transition to p.o. diuretics today/this afternoon, will monitor overnight for continued adequate urine output, check renal function tomorrow Patient has been compliant with Eliquis but reports that he would not be able to afford it going forward Continue home medications Insulin sliding scale, continue Lantus, titrate as needed VTE: Eliquis Code: Full Dispo: Anticipate discharge home tomorrow Time Spent Managing Pts Care (In Minutes): 35
--- NOTE | 2021-04-05 15:12 | PN ---
Date of Progress Note: 04/05/2021 Nephrology Followup Subjective: The patient was admitted with chronic kidney disease, CHF exacerbation on congestive heart failure. The patient was started on aggressive diuresis. The patient responding very well. Currently on room air. Physical Examination: Vital Signs: Blood pressure 126/92, pulse of 78. The patient had good urine output. Chest: Faint crackles bilateral. Heart: S1, S2. Systolic murmur. Abdomen: Soft, nontender. Extremities: Venous stasis change, trace edema. Neurological: Alert and oriented x3. No focal. Laboratory Data: WBC 8.6, H and H 11.9 and 36.1. Sodium 138, potassium 3.2, bicarb 29, BUN 69, creatinine 2.7 GFR of 25, and calcium 8.8. PTH 357. Echocardiogram was done on previous admission, severe global hypokinesia. Ejection fraction of 28%. Medications: Current medications the patient on include, 1. Eliquis. 2. Plavix. 3. Amlodipine. 4. Carvedilol. 5. Isosorbide. 6. Lasix. 7. Metolazone. 8. Zofran. 9. Insulin. Assessment And Plan: 1. Chronic kidney disease with acute kidney injury secondary to cardiorenal, currently start to being on the normal volume side. I am going to go ahead and switch the patient back on his outpatient regimen, which include metolazone and Bumex, and we will follow up the patient given the advanced cardiac disease with ejection fraction of 28%. The patient is going to be a good candidate to be started on Entresto as outpatient. I am going to start the patient on Aldactone. 2. Hypokalemia. The patient is going to be started on Aldactone. We will follow up the patient. We will avoid supplement. 3. Hypertension, controlled, optimal. Continue to utilize the blood pressure for more diuresis. Add spironolactone as above. 4. Congestive heart failure with exacerbation secondary to poor compliance, currently normal volume. We will resume outpatient regimen as ordered. We will add Aldactone. time spend exam the patient face to face , reviewing the data lab and radiology , placing order , discussing the case with the restaurant team member including nursing staff and discussing with the hospitalist 45 min ARMANI Voice ID: [id number] Report ID: [id number] MTDD
[2021-04-05] MEDS: BUMETANIDE 1 MG TABLET PO SCH (22:25)
[2021-04-06 04:02] VITALS: O2SAT 96
[2021-04-06 06:20] LABS: Hematocrit 34.8 % (39.6-49.0); Lymphocytes % 11.7 % (15.3-44.8); MPV 8.7 fL (7.6-11.3); RBC Red Blood Cell Count 3.65 M/uL (4.33-5.43)
[2021-04-06 06:48] LABS: Albumin 2.1 g/dL (3.4-5.0); Bilirubin Total 0.5 mg/dL (0.2-1.0); Magnesium 1.9 mg/dL (1.8-2.4); Potassium 3.2 mmol/L (3.5-5.1); Protein, Total 6.1 g/dL (6.4-8.2)
[2021-04-06] MEDS: carvediloL 12.5 MG TAB PO SCH (06:50)
[2021-04-06] MEDS: INSULIN -REGULAR HUMAN 50 UNIT/0.5 ML ML SQ SCH (07:30)
[2021-04-06] MEDS: CLOPIDOGREL 75 MG TABLET PO SCH (08:29)
[2021-04-06] MEDS: BUMETANIDE 1 MG TABLET PO SCH (08:30)
[2021-04-06] MEDS: METOLAZONE 5 MG TABLET PO SCH (08:30)
[2021-04-06] MEDS: APIXABAN 5 MG TABLET PO SCH (08:31)
[2021-04-06] MEDS: AMLODIPINE 5 MG TAB PO SCH (08:31)
[2021-04-06] MEDS: ISOSORBIDE MONO SR 30 MG TAB PO SCH (08:31)
[2021-04-06 08:32] VITALS: BP 101/62
[2021-04-06 08:35] VITALS: TEMP 97.1
[2021-04-06] MEDS ORDERED: SPIRONOLACTONE 25 MG TABLET PO SCH (09:00)
[2021-04-06] MEDS: INSULIN GLARGINE 100 UNIT/ML SQ SCH (09:00)
--- NOTE | 2021-04-06 09:55 | P.DS ---
Admission Date: 04/04/21 Discharge Date: 04/06/21 Primary Care Provider: [facility], cardiology Dr. East Disposition: ROUTINE DISCHARGE Discharge Condition: GOOD Reason for Admission: CHF exacerbation Consultations: Nephrology - Dr. Guzman / [facility] - Dr. East Procedures: CXR (04/04): FINDINGS: Lung volumes are low. Interstitial and alveolar opacities are present with no focal area of dense consolidation. Cardiomegaly is present with vascular engorgement. Left subclavian pacemaker is in place. No pneumothorax or large pleural effusion. No acute bony abnormality seen. No acute aortic findings suspected. IMPRESSION: Mild to moderate CHF/ volume overload findings are present. Failure/ volume overload etiology is favored over COVID-19 pneumonia or other airspace infectious process. Problem List NSTEMI, demand ischemia in setting of acute on chronic CHF exacerbation (HFrEF) Recently diagnosed PE, now on eliquis CAD with history of pacemaker placement CKD 4 Diabetes type 2insulin-dependent with hyperglycemia Hypertension Hyperlipidemia COPD with history of tobacco abuse History of CVA Brief History of Present Illness: 45-year-old male with history of chronic systolic congestive heart failure, pulmonary embolism, CAD with pacemaker, CKD 4, diabetes mellitus type 2, hypertension, hyperlipidemia, COPD presents emergency for chest pain. Patient reports pressure-like chest pain that started last night lasting for about 4 hours described as pressure-like. Patient also reports that he has been out of his Bumex for the last 2 to 3 days and noticed increased swelling and the inability to sleep lying down. Patient was evaluated in the emergency department labs were significant for troponin 0.67 BNP 16,422 creatinine 2.88 GFR 24, glucose 319 D-dimer 1076 chest x-ray appears to show volume overload pattern. Emergency department contacted me for admission to hospitalist service for suspected CHF exacerbation, NSTEMI. Hospital Course: Patient was restarted on his home medications and further treated with IV Lasix. Patient diuresed well, had significant improvement of his lower extremity edema, improvement of his breathing, and overall reported feeling much better. On further discussion, patient reported difficulty maintaining 100% compliance with medications secondary to financial burden. Cardiology was consulted, recommended no further inpatient work-up/evaluation. He will need to follow-up in the office, plan for referral to heart transplant team. Nephrology was consulted given his renal disease. Patient has not followed up with any aluminum boat assembly supervisor in the outpatient setting secondary to financial burden. Patient was noted to have lownormal potassium levels and notes concern for secondary hyperaldosteronism. Nephrology started the patient on spironolactone. IV diuretics were transitioned to p.o. in the afternoon of 04/05. Patient continued to do well. His renal function continued to improve as well. Patient was discharged home to continue previously prescribed home medications with the addition of spironolactone per nephrology recommendations. Follow-up with cardiology in the next 1-2 weeks Follow-up with nephrology in 2 weeks. Vital Signs/Physical Exam: Physical exam GEN: Alert, oriented, NAD HEENT: Normal conjunctiva, sclera anicteric CV: Regular rate and rhythm, trace1+ edema LLE, minimal edema of R foot Pulm: Nonlabored respirations on room air, clear to auscultation bilaterally ABD: Soft, nontender, nondistended Neuro: Normal speech, normal affect Temp Pulse Resp BP Pulse Ox 97.1 F 77 18 101/62 95 04/06/21 08:00 04/06/21 08:31 04/06/21 08:00 04/06/21 08:31 04/06/21 08:00 Laboratory Data at Discharge: WBC 8.40 K/uL (4.3-10.9) 04/06/21 05:10 Hgb 11.4 g/dL (13.6-17.9) L 04/06/21 05:10 Hct 34.8 % (39.6-49.0) L 04/06/21 05:10 Plt Count 249 K/uL (152-406) 04/06/21 05:10 PT 18.8 SECONDS (9.5-12.5) H 04/04/21 04:00 INR 1.63 04/04/21 04:00 Sodium 140 mmol/L (136-145) 04/06/21 05:10 Potassium 3.2 mmol/L (3.5-5.1) L 04/06/21 05:10 BUN 64 mg/dL (7-18) H 04/06/21 05:10 Creatinine 2.45 mg/dL (0.55-1.3) H 04/06/21 05:10 Glucose 87 mg/dL (74-106) 04/06/21 05:10 Phosphorus 4.0 mg/dL (2.5-4.9) 04/05/21 05:12 Magnesium 1.9 mg/dL (1.8-2.4) 04/06/21 05:10 Total Bilirubin 0.5 mg/dL (0.2-1.0) 04/06/21 05:10 AST 18 U/L (15-37) 04/06/21 05:10 ALT 23 U/L (12-78) 04/06/21 05:10 Alkaline Phosphatase 90 U/L (45-117) 04/06/21 05:10 Troponin I 0.63 ng/mL (0.0-0.045) H* 04/04/21 18:16 Home Medications: Bumetanide [Bumex*] 1 tab PO BID 01/02/21 Carvedilol [Coreg] 1 tab PO BID 01/02/21 Clopidogrel Bisulfate [Plavix*] 1 tab PO DAILY 01/02/21 Gabapentin 1 tab PO TID 01/02/21 Insulin Glargine,Hum.rec.anlog [Lantus] 55 units SQ BID 01/02/21 Insulin Lispro [Humalog] See Protocol SQ TID 01/02/21 Isosorbide Mononitrate [Isosorbide Mononitrate ER] 1 tab PO DAILY 01/02/21 Rosuvastatin Calcium [Crestor] 1 tab PO DAILY 01/02/21 metOLazone [Metolazone] 1 tab PO DAILY 01/02/21 Allopurinol 50 mg PO SEECOM 02/03/21 Amlodipine [Norvasc*] 5 mg PO DAILY 02/03/21 Apixaban [Eliquis] 5 mg PO BID #60 tablet 03/03/21 Calcitrol [Rocaltrol*] 0.25 mcg PO Q48H #15 cap 03/03/21 Spironolactone [Aldactone*] 25 mg PO DAILY 30 Days #30 tab 04/06/21 New Medications: Spironolactone [Aldactone*] 25 mg PO DAILY 30 Days #30 tab Physician Discharge Instructions: You are found to be in acute CHF exacerbation, with some fluid on her lungs. You had improvement with IV Lasix, subsequently transitioned to her home medications. Nephrology was consulted and recommended the addition of spironolactone. Cardiology was consulted, recommended no further inpatient work-up, continue medications as prescribed, follow-up in the office in the next week or 2. You will need to get in with our transplant team. Follow-up with nephrology, Dr. Guzman in 2 weeks Diet: ADA Activity: Ad thu Followup: NONE,NONE [Primary Care Provider] - Time spent managing pt's care (in minutes): 45
--- NOTE | 2021-04-06 11:31 | PN ---
Date of Progress Note: 04/06/2021 Subjective: The patient was admitted with acute kidney injury on chronic kidney disease secondary to cardiorenal with anasarca. The patient diuresed through the IV, then switched to oral in the last 24 hours. We added also spironolactone, tolerated well. Physical Examination: Vital Signs: Blood pressure 101/62, pulse of 77, afebrile. The patient had good urine output of 1200. As weight, the patient lost from admission 4 pounds. Chest: Clear to auscultation. Heart: S1, S2. Regular. Abdomen: Soft, nontender. Extremity: Venous stasis change, bilateral trace edema. Neurological: Alert, oriented x3. No focal. Laboratory Data: WBC 8.4, H and H 11.4/34.8. Sodium 140, potassium 3.2, bicarb 32, BUN 64, creatinine 2.4, GFR 28, calcium 8.5, albumin 2.1. Corrected calcium is 10.1. Current Medications: The patient on include; 1. Eliquis. 2. Plavix. 3. Amlodipine. 4. Carvedilol. 5. Spironolactone. 6. Bumex 1 mg b.i.d. 7. Metolazone. 8. Spironolactone. Assessment And Plan: 1. Chronic kidney disease, stage 4/3B secondary to cardiorenal, normal size kidney with acute kidney injury secondary to cardiorenal, recovered, back to baseline. We will continue current diuresis dose. The patient cleared from the Renal standpoint for discharge planning to follow up in the office. 2. Hypokalemia. Continue spironolactone. 3. Hypertension. We will keep utilizing the blood pressure to establish better volume control. 4. Congestive heart failure with exacerbation, currently normal volume. Continue current diuresis dose. We are adding spironolactone. We will consider Entresto as outpatient, discontinue amlodipine for the time being. time spend exam the patient face to face , reviewing the data lab and radiology , placing order , discussing the case with the water team leader including nursing staff and discussing with the hospitalist 35 min ARMANI Voice ID: [id number] Report ID: [id number]
== END 2021-04-06 12:20 | disposition home or self-care (01) | DRG 291 ==
LOC: ER 02:10 → ERHOLD 05:29 → 2ND 21:01
PROVIDERS: ADMIT Hospitalist; ATTEND Hospitalist
DX: I13.0 Hypertensive heart and chronic kidney disease with heart failure and stage 1 through stage 4 chronic kidney disease, or unspecified chronic kidney disease (principal); I50.23 Acute on chronic systolic (congestive) heart failure; N18.4 Chronic kidney disease, stage 4 (severe); N17.9 Acute kidney failure, unspecified; E11.22 Type 2 diabetes mellitus with diabetic chronic kidney disease; E11.65 Type 2 diabetes mellitus with hyperglycemia; I25.10 Atherosclerotic heart disease of native coronary artery without angina pectoris; E78.5 Hyperlipidemia, unspecified; J44.9 Chronic obstructive pulmonary disease, unspecified; M10.9 Gout, unspecified; E87.6 Hypokalemia; Z95.0 Presence of cardiac pacemaker; Z87.891 Personal history of nicotine dependence; Z86.73 Personal history of transient ischemic attack (TIA), and cerebral infarction without residual deficits; Z95.5 Presence of coronary angioplasty implant and graft; Z86.711 Personal history of pulmonary embolism; Z79.01 Long term (current) use of anticoagulants; Z20.822 Contact with and (suspected) exposure to COVID-19
CPT/HCPCS: 0240U; 36415; 71045; 80048; 80053; 80076; 80307; 81003; 81015; 82550; 82570; 82947; 83735; 83880; 83935; 83970; 84100; 84132; 84156; 84300; 84439; 84443; 84484; 85025; 85379; 85610; 87086; 87088; 93005; 96374; 99285; J1940

== ENCOUNTER 2021-06-24 16:27 | Emergency (ER) | payer OTHER ==
--- OUTSIDE RECORDS SUMMARY | 2021-06-24 17:24 | XMS REPORT | Continuity of Care Document ---
:1975 Author Organization [facility] t Address [address] [place] [address] [address]. [address] [place] [address] Care Team Providers Name Role Phone ALEXEI ENRIQUEZ Primary Care Physician Unavailable DR PATRICK Attending Clinician Unavailable LULU Attending Clinician [phone] SHELBY Attending Clinician [phone] CONTRERAS Attending Clinician Unavailable CONTRERAS Attending Clinician [phone] NURSE Attending Clinician Unavailable FRANZ Attending Clinician Unavailable OSEI Attending Clinician [phone] DR DIANE Attending Clinician Unavailable Kathleen Riddle MD Attending Clinician Ayden SCHULER Attending Clinician Nuvia Lugo MD Attending Clinician Jackie Nguyen MD Attending Clinician Deacon Nair MD Attending Clinician OMSTEFANI Attending Clinician Unavailable OMSTEFANI Attending Clinician [phone] IRIZARRY Attending Clinician Unavailable IRIZARRY Attending Clinician [phone] Ayden Serra MD Attending Clinician Landry SCHULER Attending Clinician Lilliam SCHULER Attending Clinician Neida Lugo MD Attending Clinician Warren Blunt MD Attending Clinician LUBNA Attending Clinician Unavailable LUBNA Attending Clinician [phone] JERRY HUMMEL Attending Clinician Unavailable AYDEN SERRA Attending Clinician Unavailable [facility] Attending Clinician Unavailable SIDDHARTHA Attending Clinician Unavailable ENRIQUE Attending Clinician [phone] JONAS Attending Clinician Unavailable MIMA MARQUIS Attending Clinician Unavailable RADHA MURGUIA Attending Clinician Unavailable KASSI KULKARNI Attending Clinician Unavailable MANAV Attending Clinician [phone] SWETHA Attending Clinician Unavailable JEFFY Attending Clinician Unavailable ISAURA Attending Clinician [phone] MOSESAMABecky Attending Clinician Unavailable TIMA Attending Clinician Unavailable MICAH Attending Clinician Unavailable FOREIGN Attending Clinician Unavailable DESTINY Attending Clinician Unavailable ALLISON Attending Clinician [...] Policy Number Effective Date Expiration Date S ource 1000 [id number] 1959 00:00:00 0165 [id number] 1961 00:00:00 [facility] - [id number] [facility] [id number] MEDICAID MEDICARE PART A [id number] 2019 \\T\\ B - MEDICARE 00:00:00 Problems [...] - [facility] 00:00: g of this M edical scabiei scabiei 00 note Center might be different from the original. 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 UPDATED BY ICD10 SNOMED/IM O UPDATES Hypertensi Hypertensi Disease Active [facility] Diabetes Diabetes Disease Active [facility] mellitus mellitus [facility] Diabetic Diabetic Disease Active [facility] neuropathy neuropathy [facility] Hyperlipid Hyperlipid Disease Active [facility] emia emia [facility] Carpal Carpal Disease Active [facility] tunnel tunnel [facility] - syndrome syndrome [facility] Allergies, Adverse Reactions, Alerts Allergy Allergy Status Severity Reaction(s) Onset Inactive Treating Comm ents Source Name Type Date Date Clinician NO KNOWN Allergy Active [facility] Social History Social Habit Start Date Stop Date Quantity Comments Source Alcohol intake 2019-07-03 [facility] History of tobacco 2019-04-04 Current non-smoker [facility] use 00:00:00 Nutritional 2019-04-04 [facility] observable 00:00:00 Tobacco use and 2019-04-04 : No Details [facility] exposure 00:00:00 Available Quantity Details - : No Details Available Health-related 2019-04-04 [facility] Behavior 00:00:[address] [facility] - [facility] Frequency [facility] History SDOH [facility] - Alcohol Std Drinks [facility] History SDOH [facility] - Alcohol Binge Medical Matty ter Sex Assigned At Male [facility] Cigarettes smoked 2016-01-08 2016-01-[address] [facility] - current (pack per 00:00:00 00:00:00 Medical Center day) - Reported Cigarette 2016-01-08 2016-01-[address] [facility] - pack-years 00:00:00 00:00:00 [facility] Alcohol Comment 2012-10-15 2012-10-[address] [facility] - 00:[facility]00 [facility] Center Smoking Status Start Date Stop Date Source Unknown if ever smoked [facility] Former smoker 2020-04-26 00:00:00 2020-04-26 00:00:00 [facility] Never smoker [facility] Medications Ordered Filled Start Stop Current Ordering Indication Dosage Frequency Signature Comments Components Source Medication Medication Date Date Medication? Clinician (SIG) Name Name carvedilol No 1{table Q12H take 1 Ac cess 25 mg 2-15 t} tablet by Health tablet 00:00: oral route 00 2 times every day with food rosuvastati 0 No 1{table Q1D take 1 A ccess n 40 mg 2-15 t} tablet by Health tablet 00:00: oral route 00 every day metolazone 0 No take 1 Acces s 5 mg tablet 2-15 tablet by [facility]a lt 00:00: oral route 00 every day isosorbide No take 1 Acces s mononitrate 2-15 tablet (60 [facility] al[facility] ER 60 mg 00:00: mg) by tablet,exte 00 oral route nded once daily release 24 in the hr morning gabapentin No 1{table Q8H take 1 Ac cess 800 mg 2-15 t} tablet by Health tablet 00:00: oral route 00 3 times every day clopidogrel No take 1 Acce ss 75 mg 2-15 tablet (75 Health tablet 00:00: mg) by 00 oral route once daily bumetanide No take 1 Acces s 1 mg tablet 2-15 tablet (1 Hea lt 00:00: mg) by 00 oral route 2 times per day amlodipine No take 1 Acces s 5 mg tablet 2-15 tablet (5 [facility] 00:00: mg) by 00 oral route once daily allopurinol No take 1/2 Dx: Ac cess 100 mg 2-15 tablet (50 M10.449, [facility]a lt tablet 00:00: mg) by N18.32 00 oral route every OTHER day Aldactone No 1{table Q1D take 1 Acc ess 25 mg 2-15 t} tablet by Health tablet 00:00: oral route 00 every day carvedilol No 1{table Q12H take 1 Ac cess 25 mg 2-15 t} tablet by Health tablet 00:00: oral route 00 2 times every day with food rosuvastati No 1{table Q1D take 1 A ccess n 40 mg 2-15 t} tablet by Health tablet 00:00: oral route 00 every day metolazone No take 1 Acces s 5 mg tablet 2-15 tablet by [facility]a l[facility] 00:00: oral route 00 every day isosorbide 0 No take 1 Acces s mononitrate 2-15 tablet (60 [facility] alth ER 60 mg 00:00: mg) by tablet,exte 00 oral route nded once daily release 24 in the hr morning gabapentin 2021-0 No 1{table Q8H take 1 Ac cess 800 mg 2-15 t} tablet by Health tablet 00:00: oral route 00 3 times every day clopidogrel No take 1 Acce ss 75 mg 2-15 tablet (75 Health tablet 00:00: mg) by 00 oral route once daily bumetanide No take 1 Acces s 1 mg tablet 2-15 tablet (1 [facility]a [facility] 00:00: mg) by 00 oral route 2 times per day amlodipine No take 1 Acces s 5 mg tablet 2-15 tablet (5 He[facility] 00:00: mg) by 00 oral route once daily allopurinol No take 1/2 Dx: Ac cess 100 mg 2-15 tablet (50 M10.449, [facility] tablet 00:00: mg) by N18.32 00 oral route every OTHER day Aldactone No 1{table Q1D take 1 Acc ess 25 mg 2-15 t} tablet by Health tablet 00:00: oral route 00 every day carvedilol 0 No 1{table Q12H take 1 Ac cess 25 mg 2-15 t} tablet by Health tablet 00:00: oral route 00 2 times every day with food rosuvastati No 1{table Q1D take 1 A ccess n 40 mg 2-15 t} tablet by Health tablet 00:00: oral route 00 every day metolazone No take 1 Acces s 5 mg tablet 2-15 tablet by Hea lth 00:00: oral route 00 every day isosorbide 0 No take 1 Acces s mononitrate 2-15 tablet (60 He alth ER 60 mg 00:00: mg) by tablet,exte 00 oral route nded once daily release 24 in the hr morning gabapentin No 1{table Q8H take 1 Ac cess 800 mg 2-15 t} tablet by Health tablet 00:00: oral route 00 3 times every day clopidogrel No take 1 Acce ss 75 mg 2-15 tablet (75 Health tablet 00:00: mg) by 00 oral route once daily bumetanide No take 1 Acces s 1 mg tablet 2-15 tablet (1 [facility] 00:00: mg) by 00 oral route 2 times per day amlodipine No take 1 Acces s 5 mg tablet 2-15 tablet (5 [facility] 00:00: mg) by 00 oral route once daily allopurinol No take 1/2 Dx: Ac cess 100 mg 2-15 tablet (50 M10.449, [facility] tablet 00:00: mg) by N18.32 00 oral route every OTHER day Aldactone No 1{table Q1D take 1 Acc ess 25 mg 2-15 t} tablet by Health tablet 00:00: oral route 00 every day carvedilol No 1{table Q12H take 1 Ac cess 25 mg 2-15 t} tablet by Health tablet 00:00: oral route 00 2 times every day with food amlodipine No take 1 Acces s 5 mg tablet 2-15 tablet (5 [facility] 00:00: mg) by 00 oral route once daily allopurinol No take 1/2 Dx: Ac cess 100 mg 2-15 tablet (50 M10.449, [facility] tablet 00:00: mg) by N18.32 00 oral route every OTHER day Aldactone 0 No 1{table Q1D take 1 Acc ess 25 mg 2-15 t} tablet by Health tablet 00:00: oral route 00 every day rosuvastati No 1{table Q1D take 1 A ccess n 40 mg 2-15 t} tablet by Health tablet 00:00: oral route 00 every day metolazone No take 1 Acces s 5 mg tablet 2-15 tablet by [facility]a l[facility] 00:00: oral route 00 every day isosorbide 0 No take 1 Acces s mononitrate 2-15 tablet (60 He alth ER 60 mg 00:00: mg) by tablet,exte 00 oral route nded once daily release 24 in the hr morning gabapentin No 1{table Q8H take 1 Ac cess 800 mg 2-15 t} tablet by Health tablet 00:00: oral route 00 3 times every day clopidogrel No take 1 Acce ss 75 mg 2-15 tablet (75 Health tablet 00:00: mg) by 00 oral route once daily bumetanide No take 1 Acces s 1 mg tablet 2-15 tablet (1 [facility] 00:00: mg) by 00 oral route 2 times per day carvedilol No 1{table Q12H take 1 Ac cess 25 mg 2-15 t} tablet by Health tablet 00:00: oral route 00 2 times every day with food rosuvastati No 1{table Q1D take 1 A ccess n 40 mg 2-15 t} tablet by Health tablet 00:00: oral route 00 every day metolazone No take 1 Acces s 5 mg tablet 2-15 tablet by Hea lth 00:00: oral route 00 every day isosorbide No take 1 Acces s mononitrate 2-15 tablet (60 [facility] alth ER 60 mg 00:00: mg) by tablet,exte 00 oral route nded once daily release 24 in the hr morning gabapentin No 1{table Q8H take 1 Ac cess 800 mg 2-15 t} tablet by Health tablet 00:00: oral route 00 3 times every day clopidogrel No take 1 Acce ss 75 mg 2-15 tablet (75 Health tablet 00:00: mg) by 00 oral route once daily bumetanide No take 1 Acces s 1 mg tablet 2-15 tablet (1 [facility] 00:00: mg) by 00 oral route 2 times per day amlodipine No take 1 Acces s 5 mg tablet 2-15 tablet (5 [facility] 00:00: mg) by 00 oral route once daily allopurinol No take 1/2 Dx: Ac cess 100 mg 2-15 tablet (50 M10.449, [facility] tablet 00:00: mg) by N18.32 00 oral route every OTHER day Aldactone No 1{table Q1D take 1 Acc ess 25 mg 2-15 t} tablet by Health tablet 00:00: oral route 00 every day carvedilol No 1{table Q12H take 1 Ac cess 25 mg 2-15 t} tablet by Health tablet 00:00: oral route 00 2 times every day with food rosuvastati No 1{table Q1D take 1 A ccess n 40 mg 2-15 t} tablet by Health tablet 00:00: oral route 00 every day metolazone No take 1 Acces s 5 mg tablet 2-15 tablet by [facility] 00:00: oral route 00 every day isosorbide No take 1 Acces s mononitrate 2-15 tablet (60 He alth ER 60 mg 00:00: mg) by tablet,exte 00 oral route nded once daily release 24 in the hr morning gabapentin No 1{table Q8H take 1 Ac cess 800 mg 2-15 t} tablet by Health tablet 00:00: oral route 00 3 times every day clopidogrel No take 1 Acce ss 75 mg 2-15 tablet (75 Health tablet 00:00: mg) by 00 oral route once daily bumetanide No take 1 Acces s 1 mg tablet 2-15 tablet (1 [facility] 00:00: mg) by 00 oral route 2 times per day amlodipine No take 1 Acces s 5 mg tablet 2-15 tablet (5 [facility] 00:00: mg) by 00 oral route once daily allopurinol No take 1/2 Dx: Ac cess 100 mg 2-15 tablet (50 M10.449, [facility] tablet 00:00: mg) by N18.32 00 oral route every OTHER day Aldactone No 1{table Q1D take 1 Acc ess 25 mg 2-15 t} tablet by Health tablet 00:00: oral route 00 every day Humalog 2021-0 2021- No inject Access KwikPen 215 03-29 5-10 Units [facility]alt [facility] (U-100) 00:00: 00:00 by Insulin 100 00 :00 Subcutaneo unit/mL us route 3 subcutaneou times per s day on a medium sliding scale three times a day before meals Humalog 2021- No inject Access KwikPen 2-15 03-29 5-10 Units Healt [facility] (U-100) 00:00: 00:00 by Insulin 100 00 :00 Subcutaneo unit/mL us route 3 subcutaneou times per s day on a medium sliding scale three times a day before meals Humalog 2021- No inject Access KwikPen 2-15 03-29 5-10 Units Healt [facility] (U-100) 00:00: 00:00 by Insulin 100 00 :00 Subcutaneo unit/mL us route 3 subcutaneou times per s day on a medium sliding scale three times a day before meals Humalog 2021- No inject Access KwikPen 2-15 03-29 5-10 Units Healt [facility] (U-100) 00:00: 00:00 by Insulin 100 00 :00 Subcutaneo unit/mL us route 3 subcutaneou times per s day on a medium sliding scale three times a day before meals Humalog 2021- No inject Access KwikPen 2-15 03-29 5-10 Units Healt [facility] (U-100) 00:00: 00:00 by Insulin 100 00 :00 Subcutaneo unit/mL us route 3 subcutaneou times per s day on a medium sliding scale three times a day before meals Humalog 2021- No inject Access KwikPen 2-15 03-29 5-10 Units Healt [facility] (U-100) 00:00: 00:00 by Insulin 100 00 :00 Subcutaneo unit/mL us route 3 subcutaneou times per s day on a medium sliding scale three times a day before meals Aldactone 2021- No 1{table Q1D take 1 Ac cess 25 mg 2-15 -15 t} tablet by Health tablet 00:00: 00:00 oral route 00 :00 every day carvedilol 2021- No TAKE ONE Ac cess 12.5 mg 2-15 -15 TABLET BY Health tablet 00:00: 00:00 MOUTH 00 :00 TWICE A DAY WITH FOOD Aldactone 2021- No 1{table Q1D take 1 Ac cess 25 mg 2-15 -15 t} tablet by Health tablet 00:00: 00:00 oral route 00 :00 every day carvedilol 2021-0 2021- No TAKE ONE Ac cess 12.5 mg 2-15 02-15 TABLET BY Health tablet 00:00: 00:00 MOUTH 00 :00 TWICE A DAY WITH FOOD Aldactone 2021-0 2021- No 1{table Q1D take 1 Ac cess 25 mg 2-15 02-15 t} tablet by Health tablet 00:00: 00:00 oral route 00 :00 every day carvedilol 2021-0 2021- No TAKE ONE Ac cess 12.5 mg 2-15 02-15 TABLET BY Health tablet 00:00: 00:00 MOUTH 00 :00 TWICE A DAY WITH FOOD Aldactone 2021-0 2021- No 1{table Q1D take 1 Ac cess 25 mg 2-15 02-15 t} tablet by Health tablet 00:00: 00:00 oral route 00 :00 every day carvedilol 2021-0 2021- No TAKE ONE Ac cess 12.5 mg 2-15 02-15 TABLET BY Health tablet 00:00: 00:00 MOUTH 00 :00 TWICE A DAY WITH FOOD Aldactone 2021-0 2021- No 1{table Q1D take 1 Ac cess 25 mg 2-15 02-15 t} tablet by Health tablet 00:00: 00:00 oral route 00 :00 every day carvedilol 2021-0 2021- No TAKE ONE Ac cess 12.5 mg 2-15 02-15 TABLET BY Health tablet 00:00: 00:00 MOUTH 00 :00 TWICE A DAY WITH FOOD Aldactone 2021-0 2021- No 1{table Q1D take 1 Ac cess 25 mg 2-15 02-15 t} tablet by Health tablet 00:00: 00:00 oral route 00 :00 every day carvedilol 2021-0 2021- No TAKE ONE Ac cess 12.5 mg 2-15 02-15 TABLET BY Health tablet 00:00: 00:00 MOUTH 00 :00 TWICE A DAY WITH FOOD Aldactone 2021-0 2021- No 1{table Q1D take 1 Ac cess 25 mg 2-15 02-15 t} tablet by Health tablet 00:00: 00:00 oral route 00 :00 every day carvedilol 2021-0 2021- No TAKE ONE Ac cess 12.5 mg 2-15 02-15 TABLET BY Health tablet 00:00: 00:00 MOUTH 00 :00 TWICE A DAY WITH FOOD Aldactone 2-0 2021- No 1{table Q1D take 1 Ac cess 25 mg 2-15 02-15 t} tablet by Health tablet 00:00: 00:00 oral route 00 :00 every day carvedilol 2-0 2021- No TAKE ONE Ac cess 12.5 mg 2-15 02-15 TABLET BY Health tablet 00:00: 00:00 MOUTH 00 :00 TWICE A DAY WITH FOOD Aldactone 2021-0 2021- No 1{table Q1D take 1 Ac cess 25 mg 2-15 02-15 t} tablet by Health tablet 00:00: 00:00 oral route 00 :00 every day carvedilol 2-0 2021- No TAKE ONE Ac cess 12.5 mg 2-15 02-15 TABLET BY Health tablet 00:00: 00:00 MOUTH 00 :00 TWICE A DAY WITH FOOD Aldactone 2021-0 2021- No 1{table Q1D take 1 Ac cess 25 mg 2-15 02-15 t} tablet by Health tablet 00:00: 00:00 oral route 00 :00 every day carvedilol 2021-0 2021- No TAKE ONE Ac cess 12.5 mg 2-15 02-15 TABLET BY Health tablet 00:00: 00:00 MOUTH 00 :00 TWICE A DAY WITH FOOD Aldactone 2021-0 2021- No 1{table Q1D take 1 Ac cess 25 mg 2-15 02-15 t} tablet by Health tablet 00:00: 00:00 oral route 00 :00 every day carvedilol 2-0 2021- No TAKE ONE Ac cess 12.5 mg 2-15 02-15 TABLET BY Health tablet 00:00: 00:00 MOUTH 00 :00 TWICE A DAY WITH FOOD Aldactone 2-0 2021- No 1{table Q1D take 1 Ac cess 25 mg 2-15 02-15 t} tablet by Health tablet 00:00: 00:00 oral route 00 :00 every day carvedilol 2-0 2- No TAKE ONE Ac cess 12.5 mg 2-15 02-15 TABLET BY Health tablet 00:00: 00:00 MOUTH 00 :00 TWICE A DAY WITH FOOD CARVEDILOL 2021-0 2021- No TAKE ONE Ac cess 12.5 MG 2-14 02-15 TABLET BY Health TABLET 00:00: 00:00 MOUTH 00 :00 TWICE A DAY WITH FOOD CARVEDILOL 2021-0 2021- No TAKE ONE Ac cess 12.5 MG 2-14 02-15 TABLET BY Health TABLET 00:00: 00:00 MOUTH 00 :00 TWICE A DAY WITH FOOD CARVEDILOL 2021-0 2021- No TAKE ONE Ac cess 12.5 MG 2-14 02-15 TABLET BY Health TABLET 00:00: 00:00 MOUTH 00 :00 TWICE A DAY WITH FOOD CARVEDILOL 2021-0 2021- No TAKE ONE Ac cess 12.5 MG 2-14 02-15 TABLET BY Health TABLET 00:00: 00:00 MOUTH 00 :00 TWICE A DAY WITH FOOD CARVEDILOL 2021-0 2021- No TAKE ONE Ac cess 12.5 MG 2-14 02-15 TABLET BY Health TABLET 00:00: 00:00 MOUTH 00 :00 TWICE A DAY WITH FOOD CARVEDILOL 2021-0 2021- No TAKE ONE Ac cess 12.5 MG 2-14 02-15 TABLET BY Health TABLET 00:00: 00:00 MOUTH 00 :00 TWICE A DAY WITH FOOD rosuvastati 2021-0 No 1{table Q1D take 1 A ccess n 40 mg 2-03 t} tablet by Health tablet 00:00: oral route 00 every day rosuvastati 2-0 2022- No 1{table Q1D take 1 Access n 40 mg 2-03 02-15 t} tablet by Health tablet 00:00: 00:00 oral route 00 :00 every day rosuvastati 2022-0 2022- No 1{table Q1D take 1 Access n 40 mg 2-03 02-15 t} tablet by Health tablet 00:00: 00:00 oral route 00 :00 every day rosuvastati 2022-0 2022- No 1{table Q1D take 1 Access n 40 mg 2-03 02-15 t} tablet by Health tablet 00:00: 00:00 oral route 00 :00 every day rosuvastati 2022-0 2022- No 1{table Q1D take 1 Access n 40 mg 2-03 02-15 t} tablet by Health tablet 00:00: 00:00 oral route 00 :00 every day rosuvastati 2022-0 2022- No 1{table Q1D take 1 Access n 40 mg 05-01 t} tablet by Health tablet 00:00: 00:00 oral route 00 :00 every day rosuvastati 2021- No 1{table Q1D take 1 Access n 40 mg 05-01 t} tablet by Health tablet 00:00: 00:00 oral route 00 :00 every day isosorbide No take 1 Acces s mononitrate 1-05 tablet (60 He alth ER 60 mg 00:00: mg) by tablet,exte 00 oral route nded once daily release 24 in the hr morning clopidogrel No take 1 Acce ss 75 mg 1-05 tablet (75 Health tablet 00:00: mg) by 00 oral route once daily allopurinol No take 1/2 Dx: Ac cess 100 mg 1-05 tablet (50 M10.449, [facility] tablet 00:00: mg) by N18.32 00 oral route every OTHER day isosorbide No take 1 Acces s mononitrate 1-05 tablet (60 He alth ER 60 mg 00:00: mg) by tablet,exte 00 oral route nded once daily release 24 in the hr morning clopidogrel No take 1 Acce ss 75 mg 1-05 tablet (75 Health tablet 00:00: mg) by 00 oral route once daily allopurinol No take 1/2 Dx: Ac cess 100 mg 1-05 tablet (50 M10.449, [facility] tablet 00:00: mg) by N18.32 00 oral route every OTHER day isosorbide 2021- No take 1 Acce ss mononitrate 1-05 02-15 tablet (60 [facility] ealth ER 60 mg 00:00: 00:00 mg) by tablet,exte 00 :00 oral route nded once daily release 24 in the hr morning clopidogrel 2021- No take 1 Acc ess 75 mg 1-05 -15 tablet (75 Health tablet 00:00: 00:00 mg) by 00 :00 oral route once daily allopurinol 2021- No take 1/2 Dx: A ccess 100 mg 1-05 02-15 tablet (50 M10.449, [facility] alth tablet 00:00: 00:00 mg) by N18.32 00 :00 oral route every OTHER day isosorbide 2021-0 2021- No take 1 Acce ss mononitrate 1-05 02-15 tablet (60 [facility]alth ER 60 mg 00:00: 00:00 mg) by tablet,exte 00 :00 oral route nded once daily release 24 in the hr morning clopidogrel 2021-2021- No take 1 Acc ess 75 mg 1-05 02-15 tablet (75 Health tablet 00:00: 00:00 mg) by 00 :00 oral route once daily allopurinol 2021-2021- No take 1/2 Dx: A ccess 100 mg 1-05 02-15 tablet (50 M10.449, [facility] alth tablet 00:00: 00:00 mg) by N18.32 00 :00 oral route every OTHER day isosorbide 2021-0 2021- No take 1 Acce ss mononitrate 1-05 02-15 tablet (60 [facility]alth ER 60 mg 00:00: 00:00 mg) by tablet,exte 00 :00 oral route nded once daily release 24 in the hr morning clopidogrel 2021-2021- No take 1 Acc ess 75 mg 1-05 02-15 tablet (75 Health tablet 00:00: 00:00 mg) by 00 :00 oral route once daily allopurinol 2021-2021- No take 1/2 Dx: A ccess 100 mg 1-05 02-15 tablet (50 M10.449, [facility] al[facility] tablet 00:00: 00:00 mg) by N18.32 00 :00 oral route every OTHER day isosorbide 2021-0 2021- No take 1 Acce ss mononitrate 1-05 02-15 tablet (60 [facility] ealth ER 60 mg 00:00: 00:00 mg) by tablet,exte 00 :00 oral route nded once daily release 24 in the hr morning clopidogrel 2021-2021- No take 1 Acc ess 75 mg 1-05 02-15 tablet (75 Health tablet 00:00: 00:00 mg) by 00 :00 oral route once daily allopurinol 2021-2021- No take 1/2 Dx: A ccess 100 mg 1-05 02-15 tablet (50 M10.449, He alth tablet 00:00: 00:00 mg) by N18.32 00 :00 oral route every OTHER day isosorbide 2021-2021- No take 1 Acce ss mononitrate 1-05 02-15 tablet (60 [facility]alth ER 60 mg 00:00: 00:00 mg) by tablet,exte 00 :00 oral route nded once daily release 24 in the hr morning clopidogrel 2021- No take 1 Acc ess 75 mg 1-05 02-15 tablet (75 Health tablet 00:00: 00:00 mg) by 00 :00 oral route once daily allopurinol 2021- No take 1/2 Dx: A ccess 100 mg 1-05 02-15 tablet (50 M10.449, [facility] al[facility] tablet 00:00: 00:00 mg) by N18.32 00 :00 oral route every OTHER day isosorbide 2021- No take 1 Acce ss mononitrate 1- 02-15 tablet (60 [facility]alth ER 60 mg 00:00: 00:00 mg) by tablet,exte 00 :00 oral route nded once daily release 24 in the hr morning clopidogrel 2021-2021- No take 1 Acc ess 75 mg 1-07 28-15 tablet (75 Health tablet 00:00: 00:00 mg) by 00 :00 oral route once daily allopurinol 2021- No take 1/2 Dx: A ccess 100 mg 1-05 02-15 tablet (50 M10.449, [facility] al[facility] tablet 00:00: 00:00 mg) by N18.32 00 :00 oral route every OTHER day metolazone 2020-03 No take 1 Acces s 5 mg tablet 2-30 tablet by [facility] 00:00: oral route [...] by 00 oral route once daily metolazone 2020-03 No take 1 Acces s 5 mg tablet 2-30 tablet by [facility] 00:00: oral route [...] by 00 oral route once daily metolazone 2020-03 No take 1 Acces s 5 mg tablet 2-30 tablet by [facility] 00:00: oral route 00 every day bumetanide 2020-03 No take 1 Acces s 1 mg tablet 2-30 tablet (1 [facility] 00:00: mg) by 00 oral route 2 times per day carvedilol 2020-03 No 1{table Q12H take 1 Ac cess 12.5 mg 2-30 t} tablet by Health tablet 00:00: oral route 00 2 times every day with food amlodipine 2020-03 No take 1 Acces s 5 mg tablet 2-30 tablet (5 [facility] 00:00: mg) by 00 oral route once daily metolazone 2020-03- No take 1 Acce ss 5 mg tablet 2-30 02-15 tablet by He alth 00:00: 00:00 oral route 00 :00 every day bumetanide 2020-03- No take 1 Acce ss 1 mg tablet 2-30 02-15 tablet (1 He alth 00:00: 00:00 mg) by 00 :00 oral route 2 times per day amlodipine 2020-03- No take 1 Acce ss 5 mg tablet 2-30 02-15 tablet (5 He alth 00:00: 00:00 mg) by 00 :00 oral route once daily metolazone 2020-03- No take 1 Acce ss 5 mg tablet 2-30 02-15 tablet by He alth 00:00: 00:00 oral route 00 :00 every day bumetanide 2020-03- No take 1 Acce ss 1 mg tablet 2-30 02-15 tablet (1 He alth 00:00: 00:00 mg) by 00 :00 oral route 2 times per day amlodipine 2020-03- No take 1 Acce ss 5 mg tablet 2-30 02-15 tablet (5 He alth 00:00: 00:00 mg) by 00 :00 oral route once daily metolazone 2020-03- No take 1 Acce ss 5 mg tablet 2-30 02-15 tablet by He alth 00:00: 00:00 oral route 00 :00 every day bumetanide 2020-03- No take 1 Acce ss 1 mg tablet 2-30 02-15 tablet (1 He alth 00:00: 00:00 mg) by 00 :00 oral route 2 times per day amlodipine 2020-03- No take 1 Acce ss 5 mg tablet 2-30 02-15 tablet (5 He alth 00:00: 00:00 mg) by 00 :00 oral route once daily metolazone 2020-03- No take 1 [facility] 5 mg tablet 2-30 02-15 tablet by [facility] 00:00: 00:00 oral route 00 :00 every day bumetanide 2020-03- No take 1 [facility] 1 mg tablet 2-30 02-15 tablet (1 [facility] 00:00: 00:00 mg) by 00 :00 oral route 2 times per day amlodipine 2020-03- No take 1 [facility] 5 mg tablet 2-30 02-15 tablet (5 [facility] 00:00: 00:00 mg) by 00 :00 oral route once daily metolazone 2020-03- No take 1 [facility] 5 mg tablet 230 -15 tablet by [facility] 00:00: 00:00 oral route 00 :00 every day bumetanide 2020-03- No take 1 [facility] 1 mg tablet 2-30 -15 tablet (1 [facility] 00:00: 00:00 mg) by 00 :00 oral route 2 times per day amlodipine 2020-03- No take 1 [facility] 5 mg tablet 230 -15 tablet (5 [facility] 00:00: 00:00 mg) by 00 :00 oral route once daily metolazone 2020-03- No take 1 [facility] 5 mg tablet 230 -15 tablet by [facility] 00:00: 00:00 oral route 00 :00 every day bumetanide 2020-03- No take 1 [facility] 1 mg tablet 230 -15 tablet (1 [facility] 00:00: 00:00 mg) by 00 :00 oral route 2 times per day amlodipine 2020-03- No take 1 [facility] 5 mg tablet 30 -15 tablet (5 [facility] 00:00: 00:00 mg) by 00 :00 oral route once daily carvedilol 2020-03- No 1{table Q12H take 1 A ccess 12.5 mg 2-30 02-14 t} tablet by [facility] tablet 00:00: 00:00 oral route 00 :00 2 times every day with food carvedilol 2020-03- No 1{table Q12H take 1 A ccess 12.5 mg 2-30 02-14 t} tablet by [facility] tablet 00:00: 00:00 oral route 00 :00 2 times every day with food carvedilol 2020-03- No 1{table Q12H take 1 A ccess 12.5 mg 2-30 02-14 t} tablet by [facility] tablet 00:00: 00:00 oral route 00 :00 2 times every day with food carvedilol 2020-03- No 1{table Q12H take 1 A ccess 12.5 mg 2-30 02-14 t} tablet by [facility] tablet 00:00: 00:00 oral route 00 :00 2 times every day with food carvedilol 2020-2021- No 1{table Q12H take 1 A ccess 12.5 mg 2-30 02-14 t} tablet by [facility] tablet 00:00: 00:00 oral route 00 :00 2 times every day with food carvedilol 2020-2021- No 1{table Q12H take 1 A ccess 12.5 mg 2-30 02-14 t} tablet by [facility] tablet 00:00: 00:00 oral route 00 :00 2 times every day with food rosuvastati 2020-2021- No 1{table Q1D take 1 Access n 40 mg 2-30 02-03 t} tablet by [facility] tablet 00:00: 00:00 oral route 00 :00 every day rosuvastati 2020-2021- No 1{table Q1D take 1 Access n 40 mg 2-30 02-03 t} tablet by [facility] tablet 00:00: 00:00 oral route 00 :00 every day rosuvastati 2020-2021- No 1{table Q1D take 1 Access n 40 mg 2-30 02-03 t} tablet by [facility] tablet 00:00: 00:00 oral route 00 :00 every day rosuvastati 2020-2021- No 1{table Q1D take 1 Access n 40 mg 2-30 02-03 t} tablet by [facility] tablet 00:00: 00:00 oral route 00 :00 every day rosuvastati 2020- 2022- No 1{table Q1D take 1 Access n 40 mg 2-30 02-03 t} tablet by [facility] tablet 00:00: 00:00 oral route 00 :00 every day rosuvastati 2020-2021- No 1{table Q1D take 1 Access n 40 mg 2-30 02-03 t} tablet by [facility] tablet 00:00: 00:00 oral route 00 :00 every day rosuvastati 2020-2021- No 1{table Q1D take 1 Access n 40 mg 2-30 02-03 t} tablet by [facility] tablet 00:00: 00:00 oral route 00 :00 every day allopurinol 2020-03 No take 1/2 Dx: [...] ccess 1,250 mcg -04-24 le} capsule by [facility] (50,000 00:00: 00:00 oral route unit) 00 :00 every capsule week for 12 weeks Vitamin D2 2020-03- No 1{capsu Q1W take 1 A ccess 1,250 mcg -27 le} capsule by [facility] (50,000 00:00: 00:00 oral route unit) 00 :00 every capsule week for 12 weeks Vitamin D2 2020-03- No 1{capsu Q1W take 1 A ccess 1,250 mcg -27 le} capsule by [facility] (50,000 00:00: 00:00 oral route unit) 00 :00 every capsule week for 12 weeks Vitamin D2 2020-03- No 1{capsu Q1W take 1 A ccess 1,250 mcg -27 le} capsule by [facility] (50,000 00:00: 00:00 oral route unit) 00 :00 every capsule week for 12 weeks Vitamin D2 2020-03- No 1{capsu Q1W take 1 A ccess 1,250 mcg -27 le} capsule by [facility] (50,000 00:00: 00:00 oral route unit) 00 :00 every capsule week for 12 weeks Vitamin D2 2020-03- No 1{capsu Q1W take 1 A ccess 1,250 mcg -04-24 le} capsule by [facility] (50,000 00:00: 00:00 oral route unit) 00 :00 every capsule week for 12 weeks Vitamin D2 2020-03- No 1{capsu Q1W take 1 A ccess 1,250 mcg -27 le} capsule by [facility] (50,000 00:00: 00:00 oral route unit) 00 :00 every capsule week for 12 weeks Vitamin D2 2020-03- No 1{capsu Q1W take 1 A ccess 1,250 mcg 04-02 le} capsule by [facility] (50,000 00:00: 00:00 oral route unit) 00 :00 every capsule week for 12 weeks Vitamin D2 2020-03- No 1{capsu Q1W take 1 A ccess 1,250 mcg -04-24 le} capsule by [facility] (50,000 00:00: 00:00 oral route unit) 00 :00 every capsule week for 12 weeks Vitamin D2 2020-03- No 1{capsu Q1W take 1 A ccess 1,250 mcg 04-02 le} capsule by [facility] (50,000 00:00: 00:00 oral route unit) 00 :00 every capsule week for 12 weeks Vitamin D2 2020-03- No 1{capsu Q1W take 1 A ccess 1,250 mcg -04-24 le} capsule by [facility] (50,000 00:00: 00:00 oral route unit) 00 :00 every capsule week for 12 weeks Vitamin D2 2020-03- No 1{capsu Q1W take 1 A ccess 1,250 mcg -04-24 le} capsule by [facility] (50,000 00:00: 00:00 oral route unit) 00 :00 every capsule week for 12 weeks allopurinol 2020-03- No take 1/2 Dx: A ccess 100 mg 04-02 tablet (50 M10.449, [facility] tablet 00:00: 00:00 mg) by [id number] 00 :00 oral route every OTHER day allopurinol 2020-03- No take 1/2 Dx: A ccess 100 mg 1-05 01-05 tablet (50 M10.449, [facility] tablet 00:00: 00:00 mg) by [id number] 00 :00 oral route every OTHER day allopurinol 2020-03- No take 1/2 Dx: A ccess 100 mg 1-05 01-05 tablet (50 M10.449, [facility] tablet 00:00: 00:00 mg) by [id number] 00 :00 oral route every OTHER day allopurinol 2020-03- No take 1/2 Dx: A ccess 100 mg 1-05 01-05 tablet (50 M10.449, [facility] tablet 00:00: 00:00 mg) by [id number] 00 :00 oral route every OTHER day allopurinol 2020-03- No take 1/2 Dx: A ccess 100 mg 1-05 01-05 tablet (50 M10.449, [facility] tablet 00:00: 00:00 mg) by [id number] 00 :00 oral route every OTHER day allopurinol 2020-03- No take 1/2 Dx: A ccess 100 mg 1-05 01-05 tablet (50 M10.449, [facility] tablet 00:00: 00:00 mg) by [id number] 00 :00 oral route every OTHER day allopurinol 2020-03- No take 1/2 Dx: A ccess 100 mg 1-05 01-05 tablet (50 M10.449, [facility] tablet 00:00: 00:00 mg) by [id number] 00 :00 oral route every OTHER day allopurinol 2020-03- No take 1/2 Dx: A ccess 100 mg 1-05 01-05 tablet (50 M10.449, [facility] tablet 00:00: 00:00 mg) by [id number] 00 :00 oral route every OTHER day prednisone 2020-03 No take 2 [facility] 20 mg 1-03 tablet by [facility] tablet 00:00: oral route 00 every day [...] 50 Acces s FlexTouch 1-03 unit by [facility] [id number] 00:00: subcutaneo Insulin 100 00 us [...] 00:00: oral route 00 every day gabapentin 2021-1 No 1{table Q8H take 1 Ac cess [...] 50 Acces s FlexTouch 1-03 unit by [facility] [id number] 00:00: subcutaneo Insulin 100 00 us [...] daily release 24 in the hr morning prednisone 2020-03 No take 2 Acces s [...] oral route 00 3 times every day prednisone 2020-03 No take 2 [facility]es [facility] 20 mg 1-03 tablet by [facility] tablet 00:00: oral route 00 every day x 5 days Levemir 2020-03 No 50U Q12H inject 50 Acces s FlexTouch 1-03 unit by [facility] [id number] 00:00: subcutaneo Insulin 100 00 us route 2 unit/mL (3 times mL) every day subcutaneou s pen gabapentin 2020-03 No 1{table Q8H take 1 Ac cess 800 mg 1-03 t} tablet by [facility] tablet 00:00: oral route 00 3 times every day Levemir 2020-03 No 50U Q12H inject 50 Acces s FlexTouch 1-03 unit by [facility] [id number] 00:00: subcutaneo Insulin 100 00 us route 2 unit/mL (3 times mL) every day subcutaneou s pen Levemir 2020-03 No 50U Q12H inject 50 Acces s FlexTouch 1-03 unit by [facility] [id number] 00:00: subcutaneo Insulin 100 00 us route 2 unit/mL (3 times mL) every day subcutaneou s pen Levemir 2020-03 No 50U Q12H inject 50 Acces s FlexTouch 1-03 unit by [facility] [id number] 00:00: subcutaneo Insulin 100 00 us route 2 unit/mL (3 times mL) every day subcutaneou s pen Levemir 2020-03 No 50U Q12H inject 50 Acces s FlexTouch 1-03 unit by [facility] [id number]-100 00:00: subcutaneo Insulin 100 00 us route 2 unit/mL (3 times mL) every day subcutaneou s pen Levemir 2020-03 No 50U Q12H inject 50 Acces s FlexTouch 1-03 unit by [facility] [id number] 00:00: subcutaneo Insulin 100 00 us route 2 unit/mL (3 times mL) every day subcutaneou s pen Levemir 2020-03 No 50U Q12H inject 50 Acces s FlexTouch 1-03 unit by [facility] [id number] 00:00: subcutaneo Insulin 100 00 us route 2 unit/mL (3 times mL) every day subcutaneou s pen prednisone 2020-03 No take 2 [facility] 20 mg 1-03 02-15 tablet by [facility] tablet 00:00: 00:00 oral route 00 :00 every day x 5 days gabapentin 2020-2021- No 1{table Q8H take 1 A ccess 800 mg -05 28-15 t} tablet by [facility] tablet 00:00: 00:00 oral route 00 :00 3 times every day prednisone 2020-2- No take 2 [facility] ss 20 mg 03-31-15 tablet by [facility] tablet 00:00: 00:00 oral route 00 :00 every day x 5 days gabapentin 2020-2021- No 1{table Q8H take 1 A ccess 800 mg -05 28-15 t} tablet by [facility] tablet 00:00: 00:00 oral route 00 :00 3 times every day prednisone 2020-2021- No take 2 [facility] ss 20 mg 03-31-15 tablet by [facility] tablet 00:00: 00:00 oral route 00 :00 every day x 5 days gabapentin 2020-2021- No 1{table Q8H take 1 A ccess 800 mg -05 28-15 t} tablet by [facility] tablet 00:00: 00:00 oral route 00 :00 3 times every day prednisone 2020-2021- No take 2 [facility] ss 20 mg 03-31-15 tablet by [facility] tablet 00:00: 00:00 oral route 00 :00 every day x 5 days gabapentin 2020-2- No 1{table Q8H take 1 A ccess 800 mg -05 28-15 t} tablet by [facility] tablet 00:00: 00:00 oral route 00 :00 3 times every day prednisone 2020-2- No take 2 Ac[facility] ss 20 mg -05 28-15 tablet by [facility] tablet 00:00: 00:00 oral route 00 :00 every day x 5 days gabapentin 2020-2021- No 1{table Q8H take 1 A ccess 800 mg -05 28-15 t} tablet by [facility] tablet 00:00: 00:00 oral route 00 :00 3 times every day prednisone 2020-2- No take 2 Acce ss 20 mg -05 28-15 tablet by [facility] tablet 00:00: 00:00 oral route 00 :00 every day x 5 days gabapentin 20202021- No 1{table Q8H take 1 A ccess 800 mg 03-31 t} tablet by [facility] tablet 00:00: 00:00 oral route 00 :00 3 times every day clopidogrel 2020-03- No take 1 Acc ess 75 mg 03-3105 tablet (75 [facility] tablet 00:00: 00:00 mg) by 00 :00 oral route once daily isosorbide 2020-03- No take 1 [facility] mononitrate 03-31 tablet (60 [facility] 60 mg 00:00: 00:00 mg) by tablet,exte 00 :00 oral route nded once daily release 24 in the hr morning clopidogrel 2020-03- No take 1 Acc ess 75 mg 03-31 tablet (75 [facility] tablet 00:00: 00:00 mg) by 00 :00 oral route once daily isosorbide 2020-03- No take 1 [facility] ss mononitrate 03-31 tablet (60 [facility] 60 mg 00:00: 00:00 mg) by tablet,exte 00 :00 oral route nded once daily release 24 in the hr morning clopidogrel 2020-03- No take 1 Acc ess 75 mg 03-31 tablet (75 [facility] tablet 00:00: 00:00 mg) by 00 :00 oral route once daily isosorbide 2020-03- No take 1 [facility] ss mononitrate 03-3105 tablet (60 [facility] ER 60 mg 00:00: 00:00 mg) by tablet,exte 00 :00 oral route nded once daily release 24 in the hr morning clopidogrel 2020-03- No take 1 Acc ess 75 mg 03-3105 tablet (75 [facility] tablet 00:00: 00:00 mg) by 00 :00 oral route once daily isosorbide 2020-03- No take 1 [facility] ss mononitrate 03-3105 tablet (60 [facility] ER 60 mg 00:00: 00:00 mg) by tablet,exte 00 :00 oral route nded once daily release 24 in the hr morning clopidogrel 2020-03- No take 1 Acc ess 75 mg 03-3105 tablet (75 [facility] tablet 00:00: 00:00 mg) by 00 :00 oral route once daily isosorbide 2020-03- No take 1 [facility] ss mononitrate 03-3105 tablet (60 [facility] 60 mg 00:00: 00:00 mg) by tablet,exte 00 :00 oral route nded once daily release 24 in the hr morning isosorbide 2020-03- No take 1 [facility] ss mononitrate 03-3105 tablet (60 [facility] 60 mg 00:00: 00:00 mg) by tablet,exte 00 :00 oral route nded once daily release 24 in the hr morning clopidogrel 2020-03- No take 1 Acc ess 75 mg 03-31 tablet (75 [facility] tablet 00:00: 00:00 mg) by 00 :00 oral route once daily clopidogrel 2020-03- No take 1 Acc ess 75 mg 03-3105 tablet (75 [facility] tablet 00:00: 00:00 mg) by 00 :00 oral route once daily isosorbide 2020-03- No take 1 [facility] ss mononitrate 03-31 tablet (60 [facility] 60 mg 00:00: 00:00 mg) by tablet,exte 00 :00 oral route nded once daily release 24 in the hr morning clopidogrel 2020-03- No take 1 Acc ess 75 mg 03-31 tablet (75 [facility] tablet 00:00: 00:00 mg) by 00 :00 oral route once daily isosorbide 2020-03- No take 1 [facility] ss mononitrate 03-31 tablet (60 [facility] 60 mg 00:00: 00:00 mg) by tablet,exte 00 :00 oral route nded once daily release 24 in the hr morning bumetanide 2020-03- No take 1 [facility] ss 1 mg tablet 03-31 tablet (1 [facility] 00:00: 00:00 mg) by 00 :00 oral route 2 times per day metolazone 2020-03- No take 1 [facility] 5 mg tablet 03-3130 tablet by [facility] 00:00: 00:00 oral route 00 :00 every day carvedilol 2020-03- No 1{table Q12H take 1 A ccess 12.5 mg -30 t} tablet by [facility] tablet 00:00: 00:00 oral route 00 :00 2 times every day with food amlodipine 2020-03- No take 1 [facility] 5 mg tablet 03-3130 tablet (5 [facility] 00:00: 00:00 mg) by 00 :00 oral route once daily rosuvastati 2020-03- No 1{table Q1D take 1 Access n 40 mg 03-3130 t} tablet by [facility] tablet 00:00: 00:00 oral route 00 :00 every day bumetanide 2020-03- No take 1 Acce ss [...] Acce ss 5 mg tablet 03-3130 tablet (5 [facility] 00:00: 00:00 mg) by 00 :00 oral route once daily rosuvastati 2020-03- No 1{table Q1D take 1 Access n 40 mg 03-3130 t} tablet by [facility] tablet 00:00: 00:00 oral route 00 :00 every day bumetanide 2020-03- No take 1 Acce ss [...] Acce ss 5 mg tablet 03-3130 tablet (5 [facility] 00:00: 00:00 mg) by 00 :00 oral route once daily rosuvastati 2020-03- No 1{table Q1D take 1 Access n 40 mg 03-3130 t} tablet by [facility] tablet 00:00: 00:00 oral route 00 :00 every day bumetanide 2020-03- No take 1 Acce ss 1 mg tablet 03-31 tablet (1 [facility] 00:00: 00:00 mg) by 00 :00 oral route 2 times per day metolazone 2020-03- No take 1 Ac[facility] ss 5 mg tablet 03-31 tablet by [facility] 00:00: 00:00 oral route 00 :00 every day carvedilol 2020-03- No 1{table Q12H take 1 A ccess 12.5 mg 03-31 t} tablet by [facility] tablet 00:00: 00:00 oral route 00 :00 2 times every day with food amlodipine 2020-03- No take 1 Acce ss 5 mg tablet 03-31 tablet (5 [facility] 00:00: 00:00 mg) by 00 :00 oral route once daily rosuvastati 2020-03- No 1{table Q1D take 1 Access n 40 mg 03-31 t} tablet by [facility] tablet 00:00: 00:00 oral route 00 :00 every day bumetanide 2020-03- No take 1 Acce ss [...] Q1D take 1 Access n 40 mg 03-31 t} tablet by [facility] tablet 00:00: 00:00 oral route 00 :00 every day bumetanide 2020-03- No take 1 Acce ss 1 mg tablet 03-31 tablet (1 [facility] 00:00: 00:00 mg) by 00 :00 oral route 2 times per day metolazone 2020-03- No take 1 Acce ss 5 mg tablet 03-31 tablet by [facility] 00:00: 00:00 oral route 00 :00 every day carvedilol 2020-03- No 1{table Q12H take 1 A ccess 12.5 mg 03-31 t} tablet by [facility] tablet 00:00: 00:00 oral route 00 :00 2 times every day with food amlodipine 2020-03- No take 1 Acce ss 5 mg tablet 03-31 tablet (5 [facility] 00:00: 00:00 mg) by 00 :00 oral route once daily rosuvastati 2020-03- No 1{table Q1D take 1 Access n 40 mg 03-31 t} tablet by [facility] tablet 00:00: 00:00 oral route 00 :00 every day rosuvastati 2020-03- No 1{table Q1D take 1 Access n 40 mg 03-3130 t} tablet by [facility] tablet 00:00: 00:00 oral route 00 :00 every day bumetanide 2020-03- No take 1 Acce ss 1 mg tablet 03-3130 tablet (1 [facility] 00:00: 00:00 mg) by 00 :00 oral route 2 times per day metolazone 2020-03- No take 1 Acce ss 5 mg tablet 03-3130 tablet by [facility] 00:00: 00:00 oral route 00 :00 every day carvedilol 2020-03- No 1{table Q12H take 1 A ccess 12.5 mg -30 t} tablet by [facility] tablet 00:00: 00:00 oral route 00 :00 2 times every day with food amlodipine 2020-03- No take 1 Acce ss 5 mg tablet 03-3130 tablet (5 [facility] 00:00: 00:00 mg) by 00 :00 oral route once daily bumetanide 2020-03- No take 1 Acce ss [...] Acce ss 5 mg tablet 03-3130 tablet (5 [facility] 00:00: 00:00 mg) by 00 :00 oral route once daily rosuvastati 2020-03- No 1{table Q1D take 1 Access n 40 mg 03-3130 t} tablet by [facility] tablet 00:00: 00:00 oral route 00 :00 every day bumetanide 2020-03- No take 1 Acce ss 1 mg tablet 03-3130 tablet (1 [facility] 00:00: 00:00 mg) by 00 :00 oral route 2 times per day metolazone 2020-03- No take 1 Acce ss 5 mg tablet 03-3130 tablet by [facility] 00:00: 00:00 oral route 00 :00 every day carvedilol 2020-03- No 1{table Q12H take 1 A ccess 12.5 mg 1-03 12-30 t} tablet by [facility] tablet 00:00: 00:00 oral route 00 :00 2 times every day with food amlodipine 2020-03- No take 1 Acce ss 5 mg tablet 03-31 tablet (5 [facility] 00:00: 00:00 mg) by 00 :00 oral route once daily rosuvastati 2020-03- No 1{table Q1D take 1 Access n 40 mg 03-31 t} tablet by [facility] tablet 00:00: 00:00 [...] as needed for low back pain cyclobenzap 1-0 No 1{table BID take 1 A ccess [...] as needed for low back pain rosuvastati 202-0 No 1{table Q1D take 1 A ccess [...] 00:00: oral route 00 every day rosuvastati 1-0 No 1{table Q1D take 1 A ccess n 40 mg 8-07 t} tablet by [facility] tablet 00:00: oral route 00 every day rosuvastati 1-0 No 1{table Q1D take 1 A ccess n 40 mg 8-07 t} tablet by [facility] tablet 00:00: oral route 00 every day rosuvastati 1-0 No 1{table Q1D take 1 A ccess n 40 mg 8-07 t} tablet by [facility] tablet 00:00: oral route 00 every day rosuvastati 1-0 No 1{table Q1D take 1 A ccess n 40 mg 8-07 t} tablet by [facility] tablet 00:00: oral route 00 every day rosuvastati 2021-0 No 1{table Q1D take 1 A ccess n 40 mg 8-07 t} tablet by [facility] tablet 00:00: oral route 00 every day rosuvastati 2021-0 2021- No 1{table Q1D take 1 Access n 40 mg 8-07 11-03 t} tablet by [facility] tablet 00:00: 00:00 oral route 00 :00 every day rosuvastati 2021-0 2021- No 1{table Q1D take 1 Access n 40 mg 8-07 11-03 t} tablet by [facility] tablet 00:00: 00:00 oral route 00 :00 every day rosuvastati 2021-0 2021- No 1{table Q1D take 1 Access n 40 mg 8-07 11-03 t} tablet by [facility] tablet 00:00: 00:00 oral route 00 :00 every day rosuvastati 2021-0 2021- No 1{table Q1D take 1 Access n 40 mg 8-07 11-03 t} tablet by [facility] tablet 00:00: 00:00 oral route 00 :00 every day rosuvastati 2020-0 2021- No 1{table Q1D take 1 Access n 40 mg 11-02 t} tablet by [facility] tablet 00:00: 00:00 oral route 00 :00 every day rosuvastati 2020-0 2021- No 1{table Q1D take 1 Access n 40 mg 11-02 t} tablet by [facility] tablet 00:00: 00:00 oral route 00 :00 every day rosuvastati 2020-0 2021- No 1{table Q1D take 1 Access n 40 mg 11-02 t} tablet by [facility] tablet 00:00: 00:00 oral route 00 :00 every day rosuvastati 2020-0 2021- No 1{table Q1D take 1 Access n 40 mg 11-02 t} tablet by [facility] tablet 00:00: 00:00 oral route 00 :00 every day rosuvastati 2020-0 2021- No 1{table Q1D take 1 Access n 40 mg 11-02 t} tablet by [facility] tablet 00:00: 00:00 oral route 00 :00 every day rosuvastati 2020-0 2021- No 1{table Q1D take 1 Access n 40 mg 11-02 t} tablet by [facility] tablet 00:00: 00:00 oral route 00 :00 every day rosuvastati 2020-0 2021- No 1{table Q1D take 1 Access n 40 mg 11-02 t} tablet by [facility] tablet 00:00: 00:00 oral route 00 :00 every day rosuvastati 2020-0 2021- No 1{table Q1D take 1 Access n 40 mg 11-02 t} tablet by [facility] tablet 00:00: 00:00 oral route 00 :00 every day Vitamin D2 2020-0 2021- No 1{capsu Q1W take 1 A ccess 1,250 mcg 11-02 le} capsule by [facility] (50,000 00:00: 00:00 oral route unit) 00 :00 every capsule week for 12 weeks Vitamin D2 2020-0 2021- No 1{capsu Q1W take 1 A ccess 1,250 mcg 11-02 le} capsule by [facility] (50,000 00:00: 00:00 oral route unit) 00 :00 every capsule week for 12 weeks Vitamin D2 2020- No 1{capsu Q1W take 1 A ccess 1,250 mcg 829 le} capsule by [facility] (50,000 00:00: 00:00 oral route unit) 00 :00 every capsule week for 12 weeks Vitamin D2 2020- No 1{capsu Q1W take 1 A ccess 1,250 mcg 801-24 le} capsule by [facility] (50,000 00:00: 00:00 oral route unit) 00 :00 every capsule week for 12 weeks Vitamin D2 2020- No 1{capsu Q1W take 1 A ccess 1,250 mcg 11-02 le} capsule by [facility] (50,000 00:00: 00:00 oral route unit) 00 :00 every capsule week for 12 weeks Vitamin D2 2020- No 1{capsu Q1W take 1 A ccess 1,250 mcg 11-02 le} capsule by [facility] (50,000 00:00: 00:00 oral route unit) 00 :00 every capsule week for 12 weeks Vitamin D2 2020- No 1{capsu Q1W take 1 A ccess 1,250 mcg 11-02 le} capsule by [facility] (50,000 00:00: 00:00 oral route unit) 00 :00 every capsule week for 12 weeks Vitamin D2 2020- No 1{capsu Q1W take 1 A ccess 1,250 mcg 11-02 le} capsule by [facility] (50,000 00:00: 00:00 oral route unit) 00 :00 every capsule week for 12 weeks Vitamin D2 2020- No 1{capsu Q1W take 1 A ccess 1,250 mcg 8 1029 le} capsule by [facility] (50,000 00:00: 00:00 oral route unit) 00 :00 every capsule week for 12 weeks Vitamin D2 2020- No 1{capsu Q1W take 1 A ccess 1,250 mcg 8- 10-29 le} capsule by [facility] (50,000 00:00: 00:00 oral route unit) 00 :00 every capsule week for 12 weeks Vitamin D2 2020- No 1{capsu Q1W take 1 A ccess 1,250 mcg 11-02 le} capsule by [facility] (50,000 00:00: 00:00 oral route unit) 00 :00 every capsule week for 12 weeks Vitamin D2 2020- No 1{capsu Q1W take 1 A ccess 1,250 mcg 11-02 le} capsule by [facility] (50,000 00:00: 00:00 oral route unit) 00 :00 every capsule week for 12 weeks Vitamin D2 2020- No 1{capsu Q1W take 1 A ccess 1,250 mcg 11-02 le} capsule by [facility] (50,000 00:00: 00:00 oral route unit) 00 :00 every capsule week for 12 weeks Vitamin D2 2020- No 1{capsu Q1W take 1 A ccess 1,250 mcg 11-02 le} capsule by [facility] (50,000 00:00: 00:00 oral route unit) 00 :00 every capsule week for 12 weeks Vitamin D2 2020- No 1{capsu Q1W take 1 A ccess 1,250 mcg 11-02 le} capsule by [facility] (50,000 00:00: 00:00 oral route unit) 00 :00 every capsule week for 12 weeks Vitamin D2 2020- No 1{capsu Q1W take 1 A ccess 1,250 mcg 11-02 le} capsule by [facility] (50,000 00:00: 00:00 oral route unit) 00 :00 every capsule week for 12 weeks Vitamin D2 2020- No 1{capsu Q1W take 1 A ccess 1,250 mcg 11-02 le} capsule by [facility] (50,000 00:00: 00:00 oral route unit) 00 :00 every capsule week for 12 weeks Vitamin D2 2020- No 1{capsu Q1W take 1 A ccess 1,250 mcg 11-02 le} capsule by [facility] (50,000 00:00: 00:00 oral route unit) 00 :00 every capsule week for 12 weeks Vitamin D2 2020- No 1{capsu Q1W take 1 A ccess 1,250 mcg 11-02 le} capsule by [facility] (50,000 00:00: 00:00 oral route unit) 00 :00 every capsule week for 12 weeks Vitamin D2 2020- No 1{capsu Q1W take 1 A ccess 1,250 mcg 11-02 le} capsule by [facility] (50,000 00:00: 00:00 oral route unit) 00 :00 every capsule week for 12 weeks tramadol 50 No 1{table Q12H take 1 Dx: A ccess mg tablet 10-29 t} tablet by M79.671, [facility] 00:00: [...] 5 mg tablet 8-03 tablet by [facility] 00:00: oral route 00 every day [...] 00 3 times every day tramadol 50 2021-0 No 1{table Q12H take 1 Dx: A ccess mg tablet 8-03 t} tablet by [place] [address], [facility]: oral route M79.644, 00 every 12 M14.679, hours as E11.621, needed E11.40 tramadol 50 0 No 1{table Q12H take 1 Dx: A ccess mg tablet 8-03 t} tablet by [place] [address], [facility] 00:00: oral route M79.644, 00 every 12 M14.679, hours as E11.621, needed E11.40 tramadol 50 0 No 1{table Q12H take 1 Dx: A ccess mg tablet 8-03 t} tablet by [place] [address], ealt 00:00: oral route M79.644, 00 every 12 M14.679, hours as E11.621, needed E11.40 tramadol 50 0 No 1{table Q12H take 1 Dx: A ccess mg tablet 8-03 t} tablet by [place] [address], ealt 00:00: oral route M79.644, 00 every 12 M14.679, hours as E11.621, needed E11.40 tramadol 50 2020-0 No 1{table Q12H take 1 Dx: A ccess mg tablet 8-03 t} tablet by [place] [address], ealth 00:00: oral route M79.644, 00 every 12 M14.679, hours as E11.621, needed E11.40 tramadol 50 0 No 1{table Q12H take 1 Dx: A ccess mg tablet 8-03 t} tablet by [place] [address], ealt 00:00: oral route M79.644, 00 every 12 M14.679, hours as E11.621, needed E11.40 tramadol 50 2020-0 202- No 1{table Q12H take 1 Dx: Access mg tablet 8-03 02-15 t} tablet by [place] [address], [facility] 00:00: 00:00 oral route M79.644, 00 :00 every 12 M14.679, hours as E11.621, needed E11.40 tramadol 50 2021- No 1{table Q12H take 1 Dx: Access mg tablet 10-29 t} tablet by [facility], [facility] 00:00: 00:00 oral route M79.644, 00 :00 every 12 M14.679, hours as E11.621, needed E11.40 tramadol 50 2021- No 1{table Q12H take 1 Dx: Access mg tablet 10-29 t} tablet by [facility], [facility] 00:00: 00:00 oral route M79.644, 00 :00 every 12 M14.679, hours as E11.621, needed E11.40 tramadol 50 2021- No 1{table Q12H take 1 Dx: Access mg tablet 10-29 t} tablet by [facility], [facility] 00:00: 00:00 oral route M79.644, 00 :00 every 12 M14.679, hours as E11.621, needed E11.40 tramadol 50 2021- No 1{table Q12H take 1 Dx: Access mg tablet 10-29 t} tablet by [facility], [facility] 00:00: 00:00 oral route M79.644, 00 :00 every 12 M14.679, hours as E11.621, needed E11.40 tramadol 50 2021- No 1{table Q12H take 1 Dx: Access mg tablet 10-29 t} tablet by [facility], [facility] 00:00: 00:00 oral route M79.644, 00 :00 every 12 M14.679, hours as E11.621, needed E11.40 amlodipine 2020- No take 1 Acce ss 5 mg tablet 10-29 tablet (5 He alth 00:00: 00:00 mg) by 00 :00 oral route once daily carvedilol 2020- No 1{table Q12H take 1 A ccess 12.5 mg 10-29 t} tablet by [facility] tablet 00:00: 00:00 oral route 00 :00 [...] 00 :00 3 times every day amlodipine 2020-2020- No take 1 Acce [...] 00 :00 3 times every day amlodipine 2020-2020- No take 1 Acce [...] 00 :00 3 times every day amlodipine 2020-2020- No take 1 Acce [...] 3 times every day carvedilol 2020- No 1{table Q12H take 1 [...] 00 :00 3 times every day amlodipine 2020-2020- No take 1 Acce ss 5 mg tablet 10-29 tablet (5 He alth 00:00: 00:00 mg) by 00 :00 oral route once daily amlodipine 2020- No take 1 Acce ss [...] 00 :00 3 times every day amlodipine 2020-2020- No take 1 Acce [...] meals Humalog 2020- No inject [facility] KwikPen -12-10 5-10 Units [facility]alt [facility] (U-100) 00:00: 00:00 [...] three times a day before meals Humalog 2020-0 2020- No inject [facility] KwikPen 8-06 04-14 5-10 Units [facility]alt [facility] (U-100) 00:00: 00:00 by Insulin 100 00 :00 Subcutaneo unit/mL us route 3 subcutaneou times per s day on a medium sliding scale three times a day before meals Humalog 2020-0 2020- No inject Access KwikPen 8-06 04-14 5-10 Units Healt [facility] (U-100) 00:00: 00:00 by Insulin 100 00 :00 Subcutaneo unit/mL us route 3 subcutaneou times per s day on a medium sliding scale three times a day before meals lisinopril 2020-0 2021- No 1{table Q1D take [...] Q1D take 1 A ccess 20 mg 8-05 t} tablet by [facility] tablet 00:00: 00:00 [...] route 00 :00 every day atorvastati 2020-0 2021- No take 1 [...] 00 :00 1 time per day atorvastati 202-0 2021- No take 1 Acc ess n 80 mg -11-02 tablet by Health tablet 00:00: 00:00 Oral route 00 :00 1 time per day atorvastati 202-0 2021- No take 1 Acc ess n 80 mg -11-02 tablet by Health tablet 00:00: 00:00 Oral route 00 :00 1 time per day atorvastati 2020-0 2021- No take 1 Acc ess n 80 mg 10-29 tablet by Health tablet 00:00: 00:00 Oral route 00 :00 1 time per day atorvastati 2020-0 202- No take 1 Acc ess n 80 mg 10-29 tablet by Health tablet 00:00: 00:00 Oral route 00 :00 1 time per day atorvastati 202-0 2021- No take 1 Acc ess n [...] take 1 Acc ess n 80 mg 10-29-07 tablet by Health tablet 00:00: 00:00 Oral [...] [facility] 13:32: [facility] [address] [place] atorvastati Yes 80mg QD Take [address] [facility] (LIPITOR) 7-04 by mouth [facility] - 80 MG 13:32: every Medical tablet 10 evening. [place] isosorbide Yes Chronic 60mg QD Take 60 [...] mouth [facility] - tablet 13:32: daily. [address] clopidogrel Yes 75mg QD Take [address] [facility] (PLAVIX) 75 7-04 by mouth Luke [facility] - mg tablet 13:32: daily. Medica l [address] [place] [address] bumetanide Yes 1mg Q.5D Take 1 mg [...] mouth. [facility] - tablet 13:32: Medical [address] [place] atorvastati Yes 80mg QD Take [address] [facility] (LIPITOR) 7-04 by mouth Luke s - 80 MG 13:32: every Medical tablet 10 evening. [place] isosorbide 2021-0 Yes Chronic 60mg QD Take 60 mg [...] mouth Luke [facility] - tablet 13:32: daily. [address] clopidogrel Yes 75mg QD Take [address] [facility] (PLAVIX) 75 7-04 by mouth [facility] - mg tablet 13:32: daily. Medica l [address] [place] [address] bumetanide Yes 1mg Q.5D Take 1 mg [...] mouth. [facility] - tablet 13:32: Medical [address] [place] atorvastati Yes 80mg QD Take [address] [facility] (LIPITOR) 7-04 by mouth Luke s - 80 MG 13:32: every Medical tablet 10 evening. [place] isosorbide Yes Chronic 60mg QD Take 60 [...] mouth Luke s - tablet 13:32: daily. [address] clopidogrel Yes 75mg QD Take [address] [facility] (PLAVIX) 75 7-04 by mouth [facility] - mg tablet 13:32: daily. Medica l [address] [place] [address] bumetanide Yes 1mg Q.5D Take 1 mg [...] mouth. [facility] - tablet 13:32: Medical [address] [place] atorvastati Yes 80mg QD Take [address] [facility] (LIPITOR) 7-04 by mouth Luke s - 80 MG 13:32: every Medical tablet 10 evening. [place] isosorbide Yes Chronic 60mg QD Take 60 [...] mouth [facility] - tablet 13:32: daily. [address] clopidogrel Yes 75mg QD Take [address] [facility] (PLAVIX) 75 7-04 by mouth [facility] - mg tablet 13:32: daily. Medica l [address] [place] bumetanide Yes 1mg Q.5D Take 1 mg [...] 7-04 by mouth. [facility] - tablet 13:32: [address] atorvastati Yes 80mg QD Take [address] [facility] (LIPITOR) 7-04 by mouth Luke s - 80 MG 13:32: every Medical tablet 10 evening. [place] isosorbide Yes Chronic 60mg QD Take 60 [...] mouth Luke [facility] - tablet 13:32: daily. [address] clopidogrel Yes 75mg QD Take 75 [...] mouth. [facility] - tablet 13:32: Medical [address] [place] atorvastati Yes 80mg QD Take [address] [facility] (LIPITOR) 7-04 by mouth Luke s - 80 MG 13:32: every Medical tablet 10 evening. [place] isosorbide Yes Chronic 60mg QD Take 60 [...] s - tablet 13:32: daily. Medical [address] [place] clopidogrel Yes 75mg QD Take [address] [facility] (PLAVIX) 75 7-04 by mouth Luke s - mg tablet 13:32: daily. Medica l [address] [place] bumetanide Yes 1mg Q.5D Take 1 mg [...] [facility] - tablet 13:32: [facility] bisacodyL 2020-0 Yes 5mg Take 1 [facility] [...] Pain. Max Daily Amount: 3 tablets bisacodyL 1-0 Yes 5mg Take [address] [facility] (DULCOLAX) 7-04 tablet (5 [facility] - 5 mg EC 00:00: mg total) Medic al tablet 00 by mouth Center daily as needed for Constipati on. HYDROcodone 0 Yes 1{tbl} Take [address] [facility] [...] daily as needed for Constipati on. HYDROcodone 0 Yes 1{tbl} Take [address] -acetaminop 7-04 tablet by [facility] - [facility] (NORCO 00:00: mouth Medica l 10-325) 00 every 8 Center 10-325 mg (eight) per tablet hours as needed for Pain. Max Daily Amount: 3 tablets bisacodyL 0 Yes 5mg Take [address] [facility] (DULCOLAX) 7-04 tablet (5 [facility] - 5 mg EC 00:00: mg total) Medic al tablet 00 by mouth Center daily as needed for Constipati on. HYDROcodone 0 Yes 1{tbl} Take [address] -acetaminop 7-04 tablet by [facility] ([facility] 00:00: mouth Medica l 10-325) 00 every 8 Center 10-325 mg (eight) per tablet hours as needed for Pain. Max Daily Amount: 3 tablets bisacodyL 0 Yes 5mg Take [address] [facility] (DULCOLAX) 7-04 tablet (5 [facility] - 5 mg EC 00:00: mg total) Medic al tablet 00 by mouth Center daily as needed for Constipati on. HYDROcodone 0 Yes 1{tbl} Take [address] -acetaminop 7-04 tablet by [facility] - [facility] ([facility] 00:00: mouth Medica l 10-325) 00 every 8 Center 10-325 mg (eight) per tablet hours as needed for Pain. Max Daily Amount: 3 tablets amoxicillin 2020-0 2021- No 1{tbl} Q.5D Take 1 C HI [...] HI St -clavulanat -07 03- tablet by [facility] - e 00:00: 00:00 mouth Medical (AUGMENTIN) [...] 50 Acces s FlexTouch 6-22 unit by [facility] 00:00: subcutaneo Insulin 100 00 us route 2 unit/mL (3 times mL) every day subcutaneou s pen Levemir 0 No 50U Q12H inject 50 Acces s FlexTouch 6-22 unit by [facility] U-100 00:00: subcutaneo Insulin 100 00 us route 2 unit/mL (3 times mL) every day subcutaneou s pen Levemir 0 No 50U Q12H inject 50 Acces s FlexTouch 6-22 unit by Health U-100 00:00: subcutaneo Insulin 100 00 us route 2 unit/mL (3 times mL) every day subcutaneou s pen Levemir No 50U Q12H inject 50 Acces s FlexTouch 6-22 unit by [facility] U-100 00:00: subcutaneo Insulin 100 00 us route 2 unit/mL (3 times mL) every day subcutaneou s pen Levemir 0 No 50U Q12H inject 50 Acces s FlexTouch 6-22 unit by [facility] U-100 00:00: subcutaneo Insulin 100 00 us route 2 unit/mL (3 times mL) every day subcutaneou s pen Levemir No 50U Q12H inject 50 Acces s FlexTouch 6-22 unit by [facility] U-100 00:00: subcutaneo Insulin 100 00 us route 2 unit/mL (3 times mL) every day subcutaneou s pen Levemir No 50U Q12H inject 50 Acces s FlexTouch 6-22 unit by [facility] U-100 00:00: subcutaneo Insulin 100 00 us route 2 unit/mL (3 times mL) every day subcutaneou s pen Levemir No 50U Q12H inject 50 Acces s FlexTouch 6-22 unit by [facility] U-100 00:00: subcutaneo Insulin 100 00 us route 2 unit/mL (3 times mL) every day subcutaneou s pen Levemir 2020- No 50U Q12H inject 50 Acce ss FlexTouch 6-22 01-29 unit by [facility] [id number]-100 00:00: 00:00 subcutaneo Insulin 100 00 :00 us route 2 unit/mL (3 times mL) every day subcutaneou s pen Levemir 2020- No 50U Q12H inject 50 Acce ss FlexTouch 6-22 01-29 unit by [facility] [id number]-100 00:00: 00:00 subcutaneo Insulin 100 00 [...] 50 Acce ss FlexTouch 09-17 unit by [facility] U-100 00:00: 00:00 subcutaneo Insulin 100 00 :00 us route 2 unit/mL (3 times mL) every day subcutaneou s pen Levemir 2020- No 50U Q12H inject 50 Acce ss FlexTouch 09-17 unit by [facility] U-100 00:00: 00:00 subcutaneo Insulin 100 00 :00 us route 2 unit/mL (3 times mL) every day subcutaneou s pen Levemir 2020- No 50U Q12H inject 50 Acce ss FlexTouch 09-17 unit by [facility] U-100 00:00: 00:00 subcutaneo Insulin 100 00 :00 us route 2 unit/mL (3 times mL) every day subcutaneou s pen Levemir 2020- No 50U Q12H inject 50 Acce ss FlexTouch 09-17 unit by [facility] [id number]-100 00:00: 00:00 subcutaneo Insulin 100 00 [...] 50 Acce ss FlexTouch 09-17 unit by [facility] U-100 00:00: 00:00 subcutaneo Insulin 100 00 :00 us route 2 unit/mL (3 times mL) every day subcutaneou s pen metolazone 2020- No take 1 Acce ss 5 mg tablet 09-17 tablet by Barry garcia 00:00: 00:00 oral route 00 :00 [...] ss 5 mg tablet 09-17 tablet by Barry garcia 00:00: 00:00 oral route 00 :00 every day Januvia 50 2020- No 1{table Q1D take 1 A ccess mg tablet 09-17 t} tablet by [facility] 00:00: 00:00 oral route 00 :00 [...] ss 5 mg tablet 09-17 tablet by Barry garcia 00:00: 00:00 oral route 00 :00 every day Januvia 50 2020- No 1{table Q1D take 1 A ccess mg tablet 09-17 t} tablet by [facility] 00:00: 00:00 oral route 00 :00 [...] ss 5 mg tablet 09-17 tablet by Barry garcia 00:00: 00:00 oral route 00 :00 every day Januvia 50 2020- No 1{table Q1D take 1 A ccess mg tablet 09-17 t} tablet by [facility] 00:00: 00:00 oral route 00 :00 every day acetaminoph 2020- No 1{table Q8H take 1 Dx: Access en 300 09-17 t} tablet by [email or web address] Soria lth mg-codeine 00:00: 00:00 oral route [...] ss 5 mg tablet 09-17 tablet by Barry garcia 00:00: 00:00 oral route 00 :00 every day Januvia 50 2020- No 1{table Q1D take 1 A ccess mg tablet 09-17 t} tablet by [facility] 00:00: 00:00 oral route 00 :00 [...] ss 5 mg tablet 09-17 tablet by Barry garcia 00:00: 00:00 oral route 00 :00 every day Januvia 50 2020- No 1{table Q1D take 1 A ccess mg tablet 09-17 t} tablet by [facility] 00:00: 00:00 oral route 00 :00 every day acetaminoph 2020- No 1{table Q8H take 1 Dx: Access en 300 09-17 t} tablet by Dominique Garza lth mg-codeine 00:00: 00:00 oral route M14.679, [...] ccess mg tablet 09-17 t} tablet by [facility] 00:00: 00:00 oral route 00 :00 [...] ss 5 mg tablet 09-17 tablet by Barry garcia 00:00: 00:00 oral route 00 :00 every day Januvia 50 2020- No 1{table Q1D take 1 A ccess mg tablet 09-17 t} tablet by [facility] 00:00: 00:00 oral route 00 :00 [...] ss 5 mg tablet 09-17 tablet by Barry garcia 00:00: 00:00 oral route 00 :00 every day Januvia 50 2020- No 1{table Q1D take 1 A ccess mg tablet 09-17 t} tablet by [facility] 00:00: 00:00 oral route 00 :00 [...] ss 5 mg tablet 09-17 tablet by Barry garcia 00:00: 00:00 oral route 00 :00 every day Januvia 50 2020- No 1{table Q1D take 1 A ccess mg tablet 09-17 t} tablet by [facility] 00:00: 00:00 oral route 00 :00 [...] ss 5 mg tablet 09-17 tablet by Barry garcia 00:00: 00:00 oral route 00 :00 every day Januvia 50 2020- No 1{table Q1D take 1 A ccess mg tablet 09-17 t} tablet by [facility] 00:00: 00:00 oral route 00 :00 [...] ss 5 mg tablet 09-17 tablet by Barry garcia 00:00: 00:00 oral route 00 :00 every day Januvia 50 2020- No 1{table Q1D take 1 A ccess mg tablet 09-17 t} tablet by [facility] 00:00: 00:00 oral route 00 :00 [...] ss 5 mg tablet 09-17 tablet by Barry garcia 00:00: 00:00 oral route 00 :00 every day Januvia 50 2020- No 1{table Q1D take 1 A ccess mg tablet 09-17 t} tablet by [facility] 00:00: 00:00 oral route 00 :00 every day acetaminoph 2020- No 1{table Q8H take 1 Dx: Access en 300 09-17 t} tablet by Eitan, Dominique lth mg-codeine 00:00: 00:00 oral route [...] ss 5 mg tablet 09-17 tablet by Barry garcia 00:00: 00:00 oral route 00 :00 every day Januvia 50 2020- No 1{table Q1D take 1 A ccess mg tablet 09-17 t} tablet by [facility] 00:00: 00:00 oral route 00 :00 [...] ss 5 mg tablet 09-17 tablet by Barry garcia 00:00: 00:00 oral route 00 :00 every day Januvia 50 2020- No 1{table Q1D take 1 A ccess mg tablet 09-17 t} tablet by [facility] 00:00: 00:00 oral route 00 :00 every day acetaminoph 2020- No 1{table Q8H take 1 Dx: Access en 300 09-17 t} tablet by [email or web address], Dominique lth mg-codeine 00:00: 00:00 oral route [...] ss 5 mg tablet 09-17 tablet by [facility] 00:00: 00:00 oral route 00 :00 every day Januvia 50 2020- No 1{table Q1D take 1 A ccess mg tablet 09-17 t} tablet by [facility] 00:00: 00:00 oral route 00 :00 every day acetaminoph 2020- No 1{table Q8H take 1 Dx: Access en 300 09-17 t} tablet by [id number], Dominique lth mg-codeine 00:00: 00:00 oral route M14.679, 60 mg 00 :00 every 8 E11.621, tablet hours as E11.40 needed Humalog 2020- No inject Access KwikPen 09-17 08-03 5-10 Units [facility]alt [facility] (U-100) 00:00: 00:00 by Insulin 100 00 :00 Subcutaneo unit/mL us route 3 subcutaneou times per s day on a medium sliding scale three times a day before meals Humalog 2020- No inject Access KwikPen 09-17 08-03 5-10 Units Healt [facility] (U-100) 00:00: 00:00 by Insulin 100 00 :00 Subcutaneo unit/mL us route 3 subcutaneou times per s day on a medium sliding scale three times a day before meals metolazone 2020- No take 1 Acce ss 5 mg tablet 09-17 tablet by Barry garcia 00:00: 00:00 oral route 00 :00 every day Alia 50 2020- No 1{table Q1D take 1 A ccess mg tablet 09-17 t} tablet by [facility] 00:00: 00:00 oral route 00 :00 every day acetaminoph 2020- No 1{table Q8H take 1 Dx: Access en 300 09-17 t} tablet by Dominique Laird l[facility] mg-codeine 00:00: 00:00 oral route M14.679, 60 mg 00 :00 every 8 E11.621, tablet hours as E11.40 needed metolazone 2020- No take 1 Acce ss 5 mg tablet 09-17 tablet by Barry garcia 00:00: 00:00 oral route 00 :00 every day Alia 50 2020- No 1{table Q1D take 1 A ccess mg tablet 09-17 t} tablet by Estevan ibarra 00:00: 00:00 oral route 00 :00 every [...] ss 5 mg tablet 09-17 tablet by Barry garcia 00:00: 00:00 oral route 00 :00 every day Alia 50 0 2020- No 1{table Q1D take 1 A ccess mg tablet 09-17-03 t} tablet by [facility] 00:00: 00:00 oral route 00 :00 every day acetaminoph 0 2020- No 1{table Q8H take 1 Dx: [...] mg tablet 5-24 06-22 t} tablet by [facility] 00:00: 00:00 oral route 00 :00 every day Januvia 100 2021-0 2021- No 1{table Q1D take 1 Access mg tablet 5-24 06-22 t} tablet by [facility] 00:00: 00:00 oral route 00 :00 every day Januvia 100 2021-0 2021- No 1{table Q1D take 1 Access mg tablet 5-24 06-22 t} tablet by [facility] 00:00: 00:00 oral route 00 :00 every day Januvia 100 2021-0 2021- No 1{table Q1D take 1 Access mg tablet 5-24 06-22 t} tablet by [facility] 00:00: 00:00 oral route 00 :00 every day Januvia 100 2021-0 2021- No 1{table Q1D take 1 Access mg tablet 5-24 06-22 t} tablet by [facility] 00:00: 00:00 oral route 00 :00 every day Januvia 100 2021-0 2021- No 1{table Q1D take 1 Access mg tablet 5-24 06-22 t} tablet by [facility] 00:00: 00:00 oral route 00 :00 every day Januvia 100 2021-0 2021- No 1{table Q1D take 1 Access mg tablet 5-24 06-22 t} tablet by [facility] 00:00: 00:00 oral route 00 :00 every day Januvia 100 2020-0 2021- No 1{table Q1D take 1 Access mg tablet 5-24 06-22 t} tablet by [facility] 00:00: 00:00 oral route 00 :00 every day Januvia 100 2020-0 2021- No 1{table Q1D take 1 Access mg tablet 5-24 06-22 t} tablet by [facility] 00:00: 00:00 oral route 00 :00 every day Januvia 100 2020-0 2021- No 1{table Q1D take 1 Access mg tablet 5-24 06-22 t} tablet by [facility] 00:00: 00:00 oral route 00 :00 every day Januvia 100 2020-0 2021- No 1{table Q1D take 1 Access mg tablet 5-24 06-22 t} tablet by [facility] 00:00: 00:00 oral route 00 :00 every day Januvia 100 2020-0 2021- No 1{table Q1D take 1 Access mg tablet 5-24 06-22 t} tablet by [facility] 00:00: 00:00 oral route 00 :00 every day Januvia 100 2020-0 2021- No 1{table Q1D take 1 Access mg tablet 5-24 06-22 t} tablet by [facility] 00:00: 00:00 oral route 00 :00 every day Januvia 100 2020-0 2021- No 1{table Q1D take 1 Access mg tablet 5-24 06-22 t} tablet by [facility] 00:00: 00:00 oral route 00 :00 every day Januvia 100 2020-0 2021- No 1{table Q1D take 1 Access mg tablet 5-24 06-22 t} tablet by [facility] 00:00: 00:00 oral route 00 :00 every day Januvia 100 2020-0 2021- No 1{table Q1D take 1 Access mg tablet 5-24 06-22 t} tablet by [facility] 00:00: 00:00 oral route 00 :00 every day Januvia 100 2020-0 2021- No 1{table Q1D take 1 Access mg tablet 5-24 06-22 t} tablet by [facility] 00:00: 00:00 oral route 00 :00 every day Alia 100 2020-0 2021- No 1{table Q1D take 1 Access mg tablet 5-24 -22 t} tablet by [facility] 00:00: 00:00 oral route 00 :00 every day Alia 100 2020-0 2021- No 1{table Q1D take 1 Access mg tablet 5-24 -22 t} tablet by [facility] 00:00: 00:00 oral route 00 :00 every day Alia 100 2020-0 2021- No 1{table Q1D take 1 Access mg tablet 524 -22 t} tablet by [facility] 00:00: 00:00 oral route 00 :00 [...] every day to cleansed affected area isosorbide 2020-0 2020- No take 1 Acce [...] No take 1 Acc ess 75 mg -20 - tablet (75 Health tablet 00:00: 00:00 [...] No take 1 Acc ess 75 mg -20 - tablet (75 Health tablet 00:00: 00:00 [...] 2020- No take 1 Acce ss mononitrate -20 - tablet (60 H ealth ER 60 mg 00:00: 00:00 mg) by tablet,exte 00 :00 oral route nded once daily release 24 in the hr morning gabapentin 2020-2020- No 1{table Q8H take 1 A ccess 800 mg -10-29 t} tablet by Health tablet 00:00: 00:00 oral route 00 :00 3 times every day clopidogrel 2020-2020- No take 1 Acc ess 75 mg -15 11- tablet (75 Health tablet 00:00: 00:00 mg) by 00 :00 oral route once daily carvedilol 2020- No take 1 Acce ss 25 mg 5-20 - tablet (25 Health tablet 00:00: 00:00 mg) by 00 :00 oral route 2 times per day with food bumetanide 2020- No take 1 Acce ss 1 mg tablet 08-15 tablet (1 He alth 00:00: 00:00 mg) [...] 100U Q1D inject 100 Acc ess FlexTouch -09-17 unit by [facility] U-100 00:00: 00:00 subcutaneo Insulin 100 00 :00 us route unit/mL (3 every day mL) [facility] metolazone 2020- No 1{table Q2D take 1 A ccess 5 mg tablet 5-20 06-22 t} tablet by He alth 00:00: 00:00 oral route 00 :00 every 2 days lisinopril 2020-2020- No 1{table Q1D take 1 A ccess 20 mg 5-20 06-22 t} tablet by Health tablet 00:00: 00:00 oral route 00 :00 every day Levemir 2020-2020- No 100U Q1D inject 100 Acc ess FlexTouch 5-20 06-22 unit by [facility] 00:00: 00:00 subcutaneo Insulin 100 00 :00 us route unit/mL (3 every day mL) [facility] metolazone 2020- No 1{table Q2D take 1 A ccess 5 mg tablet 5-20 06-22 t} tablet by He alth 00:00: 00:00 oral route 00 :00 every 2 days lisinopril 2020-0 2020- No 1{table Q1D take 1 A ccess 20 mg 5-20 06-22 t} tablet by [facility] tablet 00:00: 00:00 oral route 00 :00 every day Levemir 2020-0 1- No 100U Q1D inject 100 Acc ess FlexTouch 5-20 06-22 unit by [employer] 00:00: 00:00 subcutaneo Insulin 100 00 :00 us route unit/mL (3 every day mL) [facility] metolazone 2020- No 1{table Q2D take 1 [...] Acc ess FlexTouch 5-20 06-22 unit by [employer] 00:00: 00:00 subcutaneo Insulin 100 00 :00 us route unit/mL (3 every day mL[facility]- No 1{table Q2D take 1 A ccess 5 mg tablet 5-20 06-22 t} tablet by He alth 00:00: 00:00 oral route 00 :00 every 2 days lisinopril 2020-0 202- No 1{table Q1D take 1 A ccess 20 mg 5-20 06-22 t} tablet by [facility] tablet 00:00: 00:00 oral route 00 :00 every day Levemir 2020-2020- No 100U Q1D inject 100 Acc ess FlexTouch 5-20 06-22 unit by [facility] 00:00: 00:00 subcutaneo Insulin 100 00 :00 us route unit/mL (3 every day mL) [facility] pen metolazone 2020- No 1{table Q2D take 1 A ccess 5 mg tablet 5-20 06-22 t} tablet by He alth 00:00: 00:00 oral route 00 :00 every 2 days lisinopril 2020-0 2020- No 1{table Q1D take 1 A ccess 20 mg 5-20 06-22 t} tablet by [facility] tablet 00:00: 00:00 oral route 00 :00 every day Levemir 2020-0 1- No 100U Q1D inject 100 Acc ess FlexTouch 5-20 06-22 unit by [facility] 00:00: 00:00 subcutaneo Insulin 100 00 :00 us route unit/mL (3 every day mL) [facility] pen metolazone 2020- No 1{table Q2D [...] Acc ess FlexTouch 5-20 06-22 unit by [facility] 00:00: 00:00 subcutaneo Insulin 100 00 :00 [...] Acc ess FlexTouch 5-20 06-22 unit by [facility] 00:00: 00:00 subcutaneo Insulin 100 00 :00 us route unit/mL (3 every day mL) [facility] 2020- No 1{table [...] Acc ess FlexTouch 5-20 06-22 unit by [employer] 00:00: 00:00 subcutaneo Insulin 100 00 :00 us route unit/mL (3 every day mL) subcutane s pen metolazone 2020- 202- No 1{table Q2D take 1 A [...] Acc ess FlexTouch 5-20 06-22 unit by [facility] 00:00: 00:00 subcutaneo Insulin 100 00 :00 [...] Acc ess FlexTouch 5-20 06-22 unit by [facility] 00:00: 00:00 subcutaneo Insulin 100 00 :00 us route unit/mL (3 every day mL) [facility]-2020- No 1{table Q2D [...] Acc ess FlexTouch 5-20 06-22 unit by [facility] 00:00: 00:00 subcutaneo Insulin 100 00 :00 us route unit/mL (3 every day mL) subcutane s pen metolazone 2020-2020- No 1{table Q2D take 1 A ccess 5 mg tablet 5-20 06-22 t} tablet by [facility] 00:00: 00:00 oral route 00 :00 every 2 days lisinopril 2020-0 202- No 1{table Q1D take 1 A ccess 20 mg 5-20 06-22 t} tablet by Health tablet 00:00: 00:00 oral route 00 :00 every day Levemir 2021-0 202- No 100U Q1D inject 100 Acc ess FlexTouch 5-20 06-22 unit by [facility] U-[email or web address] 00:00: 00:00 subcutaneo Insulin 100 00 [...] Acc ess FlexTouch 5-20 06-22 unit by [facility] 00:00: 00:00 subcutaneo Insulin 100 00 :00 us route unit/mL (3 every day mL) subcutane s pen metolazone 2020- No 1{table Q2D take 1 A ccess 5 mg tablet 5-20 06-22 t} tablet by [facility] 00:00: 00:00 oral route 00 :00 every 2 days Levemir 2020-0 2020- No 100U Q1D inject 100 Acc ess FlexTouch 5-20 06-22 unit by [facility] 00:00: 00:00 subcutaneo Insulin 100 00 :00 [...] Acc ess FlexTouch 5-20 06-22 unit by [facility] 00:00: 00:00 subcutaneo Insulin 100 00 :00 us route unit/mL (3 every day mL) [facility] 2020-2020- No 1{table Q2D take 1 A ccess 5 mg tablet 5-20 06-22 t} tablet by [facility] 00:00: 00:00 oral route 00 :00 every 2 days lisinopril 2020-0 2020- No 1{table Q1D take 1 A ccess 20 mg 5-20 06-22 t} tablet by [facility] tablet 00:00: 00:00 oral route 00 :00 every day Levemir 2020-0 2020- No 100U Q1D inject 100 Acc ess FlexTouch 5-20 06-22 unit by [facility] 00:00: 00:00 subcutaneo Insulin 100 00 :00 us route unit/mL (3 every day [facility]- No 1{table Q2D take 1 A ccess 5 mg tablet 5-20 06-22 t} tablet by [facility] 00:00: 00:00 oral route 00 :00 every 2 days lisinopril 2020-0 2020- No 1{table Q1D take 1 A ccess 20 mg 5-20 06-22 t} tablet by [facility] tablet 00:00: 00:00 oral route 00 :00 every day Levemir 2020-0 2020- No 100U Q1D inject 100 Acc ess FlexTouch 5-20 06-22 unit by [facility] 00:00: 00:00 subcutaneo Insulin 100 00 :00 us route unit/mL (3 every day mL) [facility] 2020-2020- No 1{table [...] Acc ess FlexTouch 5-20 06-22 unit by [facility]-100 00:00: 00:00 subcutaneo Insulin 100 00 :00 us route unit/mL (3 every day mL) subcutaneou s pen metolazone 2020- No 1{table Q2D take 1 A ccess 5 mg tablet 5-20 06-22 t} tablet by [facility] 00:00: 00:00 oral route 00 :00 every 2 days lisinopril 2020-2020- No 1{table Q1D take 1 A ccess 20 mg 5-20 06-22 t} tablet by Health tablet 00:00: 00:00 oral route 00 :00 every day Levemir 2020- No inject 50 Acce ss FlexTouch 5-20 05-20 Units by [facility] 00:00: 00:00 Subcutaneo Insulin 100 00 :00 us route 2 unit/mL (3 times per mL) day in the subcutaneou morning s pen and evening Levemir 2020- No inject 50 Acce ss FlexTouch 5-20 05-20 Units by [facility] 00:00: 00:00 Subcutaneo Insulin 100 00 [...] Q2D take 1 A ccess 2.5 mg 07-04-20 t} tablet by Health tablet [...] Q2D take 1 A ccess 2.5 mg 07-04-20 t} tablet by Health tablet [...] Q2D take 1 A ccess 2.5 mg 07-04-20 t} tablet by Health tablet [...] Q2D take 1 A ccess 2.5 mg 07-04-20 t} tablet by Health tablet [...] Q2D take 1 A ccess 2.5 mg 07-04-20 t} tablet by Health tablet [...] Q2D take 1 A ccess 2.5 mg 07-04-20 t} tablet by Health tablet [...] Q2D take 1 A ccess 2.5 mg 07-04-20 t} tablet by Health tablet [...] Q2D take 1 A ccess 2.5 mg 07-04-20 t} tablet by Health tablet [...] Q2D take 1 A ccess 2.5 mg 07-04-20 t} tablet by Health tablet [...] Q2D take 1 A ccess 2.5 mg 07-04-20 t} tablet by Health tablet [...] Q2D take 1 A ccess 2.5 mg 07-04-20 t} tablet by Health tablet [...] Q2D take 1 A ccess 2.5 mg 07-04-20 t} tablet by Health tablet [...] Q2D take 1 A ccess 2.5 mg 07-04-20 t} tablet by Health tablet 00:00: 00:00 oral route 00 :00 every 2 days atorvastati 2020- No take 1 Acc ess [...] morning Humalog 2020- No inject Access KwikPen -08 05-20 5-10 Units [facility] ([facility]) 00:00: [...] (3 times per mL) day in the [facility] morning s pen and evening metolazone 2020- [...] No take 1 Acce ss 25 mg 4-08 05-20 tablet (25 Health tablet 00:00: 00:00 mg) by 00 :00 oral route 2 times per day with food clopidogrel 2020- No take 1 Acc ess 75 mg 4-08 05-20 tablet (75 Health tablet 00:00: 00:00 mg) by 00 :00 oral route once daily gabapentin 2020- No 1{table Q8H take 1 A ccess 800 mg 4-08 05-20 t} tablet by Health tablet 00:00: 00:00 oral route 00 :00 3 times every day carvedilol 2020-2020- No take 1 Acce ss 25 mg 4-08 05-20 tablet (25 Health tablet 00:00: 00:00 [...] take 1 Acce ss 5 mg tablet 4-08 05-20 tablet (5 [facility] 00:00: 00:00 [...] Q2D take 1 A ccess 2.5 mg 07-04-20 t} tablet by Health tablet [...] Q2D take 1 A ccess 2.5 mg 07-04-20 t} tablet by Health tablet [...] No inject 50 Acce ss FlexTouch 4- 05-20 Units by [facility] 00:00: 00:00 Subcutaneo Insulin 100 00 :00 us route 2 unit/mL (3 times per mL) day in the subcutaneou morning s pen and evening metolazone 2020- No 1{table Q2D take 1 A ccess 2.5 mg 4-08 05-20 t} tablet by Health tablet 00:00: 00:00 oral route 00 :00 every 2 days metolazone 2020- No 1{table Q2D take 1 A ccess 2.5 mg 4-08 05-20 t} tablet by Health tablet 00:00: 00:00 oral route 00 :00 every 2 days gabapentin 2020-2020- No 1{table Q8H take 1 A ccess 800 mg 4-08 05-20 t} tablet by Health tablet 00:00: 00:00 oral route 00 :00 3 times every day carvedilol 2020- No take 1 Acce ss 25 mg 4- 05-20 tablet (25 Health tablet 00:00: 00:00 [...] 2020- No inject 50 Acce ss FlexTouch 07-04-20 Units by [facility] 00:00: 00:00 [...] Q2D take 1 A ccess 2.5 mg 07-04-20 t} tablet by Health tablet [...] every day to cleansed affected area insulin 2020-0 2020- No 50U Q.5D Inject [address] [facility] detemir 04-06 01-09 Units [facility] (LEVEMIR) 08:46: 00:00 subcutaneo M edical 100 unit/mL 05 :00 ly 2 Center injection (two) times daily . [...] 00:00 mouth Medical tablet 05 :00 daily. [place] amLODIPine 2020- No 5mg QD Take 5 [...] 00:00 mouth Medical tablet 05 :00 daily. [place] amLODIPine 2020- No 5mg QD Take 5 [...] 00:00 mouth Medical tablet 05 :00 daily. [place] amLODIPine 2020- No 5mg QD Take 5 [...] QD Take 2.[address] [facility] (ZAROXOLYN) 04-06- mg by [facility] - 2.5 MG 08:46: 00:00 mouth Medical tablet 05 :00 daily. [place] amLODIPine 2020- No 5mg QD Take 5 [...] Center injection (two) times daily . metOLazone No 2.5mg QD Take 2.[address] [facility] (ZAROXOLYN) 04-06- mg by [facility] - 2.5 MG 08:46: [...] by Center mouth every other day. insulin 2021-0 Yes 25U Q.5D Inject 25 [facility] [...] collagenase Yes Use for [facility] (SANTYL) -09 daily [facility] - 250 units/g 00:00: dressing [...] 00 total) by Center mouth daily. metOLazone 2020-0 Yes 2.5mg Take [address] [facility] (ZAROXOLYN) [...] ical 00 by mouth Center daily. collagenase 0 Yes Use for [facility] (SANTYL) 1-09 [...] 00 total) by Center mouth daily. metOLazone 2020-0 Yes 2.5mg Take [address] [facility] (ZAROXOLYN) [...] ical 00 by mouth Center daily. collagenase 0 Yes Use for [facility] (SANTYL) 1-09 [...] St -acetaminop 04-06 tablet by Siddhartha robertson (INDEPENDENCE 00:00: 00:00 mouth Medic al 5-325) 00 :00 every 6 Center 5-325 mg (six) per tablet hours as needed for Pain. Max Daily Amount: 4 tablets HYDROcodone 2020- No 1{tbl} Take [address] -acetaminop 04-06 tablet by Siddhartha robertson (NORIN 00:00: 00:00 mouth Medic al 5-325) 00 :00 every 6 Center 5-325 mg (six) per tablet hours as needed for Pain. Max Daily Amount: 4 tablets HYDROcodone 2020- No 1{tbl} Take [address] -acetaminop 04-06 tablet by Siddhartha robertson (INDEPENDENCE 00:00: 00:00 mouth Medic al 5-325) 00 :00 every 6 Center 5-325 mg (six) per tablet hours as needed for Pain. Max Daily Amount: 4 tablets HYDROcodone 2020- No 1{tbl} Take [address] -acetaminop 04-06 tablet by Siddhartha robertson (INDEPENDENCE 00:00: 00:00 mouth Medic al 5-325) 00 :00 every 6 Center 5-325 mg (six) per tablet hours as needed for Pain. Max Daily Amount: 4 tablets HYDROcodone 2020- No 1{tbl} Take [address] -acetaminop 04-06 tablet by Siddhartha robertson (INDEPENDENCE 00:00: 00:00 mouth Medic al 5-325) 00 :00 every 6 Center 5-325 mg (six) per tablet hours as needed for Pain. Max Daily Amount: 4 tablets HYDROcodone 2020- No 1{tbl} Take [address] -acetaminop 04-06- tablet by Siddhartha robertson (INDEPENDENCE 00:00: 00:00 mouth Medic al 5-325) 00 :00 every 6 Center 5-325 mg (six) per tablet hours as needed for Pain. Max Daily Amount: 4 tablets cefePIME 2020- No 2g Q24H Inject [address] [facility] (MAXIPIME) 04-06-19 intravenou Siddhartha SIM 2g in 00:00: 23:59 [...] 00 :00 for 41 Center days. doxycycline 2020-2020- No 100mg Take [address] [facility] (MONODOX) 04-06 capsule [facility] - 100 MG 00:00: 23:59 (100 mg Medical capsule 00 :00 total) by Center mouth every 12 (twelve) hours for 41 days. cefePIME 2020- 2021- No 2g Q24H Inject 2 g [...] 00 :00 for 41 Center days. doxycycline No 100mg Take 1 [facility] [...] Amount: 200 mg clindamycin 2019-03- No 300mg Q.[id number] Take [address] [facility] (CLEOCIN) 05-21- [id number] [facility] - 300 MG 00:00: 23:59 3D (300 mg Medical capsule 00 :00 total) by Center mouth 3 (three) times daily for 7 days. clindamycin 2019-03- No 300mg Q.[id number] Take [address] [facility] (CLEOCIN) 05-21-30 [id number] [facility] - 300 MG 00:00: 23:59 3D (300 mg Medical capsule 00 :00 total) by Center mouth 3 (three) times daily for 7 days. clindamycin 2019-03- No 300mg Q.[id number] Take [address] [facility] (CLEOCIN) 05-21 [id number] [facility] - 300 MG 00:00: 23:59 3D (300 mg Medical capsule 00 :00 total) by Center mouth 3 (three) times daily for 7 days. clindamycin 2019-03- No 300mg Q.[id number] Take [address] [facility] (CLEOCIN) 05-21 [id number] [facility] - 300 MG 00:00: 23:59 3D (300 mg Medical capsule 00 :00 total) by Center mouth 3 (three) times daily for 7 days. clindamycin 2019-03- No 300mg Q.[id number] Take [address] [facility] (CLEOCIN) 05-21 [id number] [facility] - 300 MG 00:00: 23:59 3D (300 mg Medical capsule 00 :00 total) by Center mouth 3 (three) times daily for 7 days. clindamycin 2019-03- No 300mg Q.[id number] Take [address] [facility] (CLEOCIN) 05-21- [id number] [facility] - 300 MG 00:00: 23:59 3D (300 mg Medical capsule 00 :00 total) by Center mouth 3 (three) times daily for 7 days. clindamycin 2019-03- No 300mg Q.[id number] Take [address] [facility] (CLEOCIN) 05-21 [id number] [facility] - 300 MG 00:00: 23:59 3D (300 mg Medical capsule 00 :00 total) by Center mouth 3 (three) times daily for 7 days. gabapentin 2019-03 Yes Take by [facility] (NEURONTIN) 2- mouth. [facility] - 800 MG 00:00: Medical tablet 00 [place] lisinopriL 2019-03 Yes take 1 [facility] (PRINIVIL,Z 2-09 tablet (40 Siddhartha kes - ESTRIL) 40 00:00: mg) by Medic al MG tablet 00 oral route Cent er once daily gabapentin 2019-03 Yes Take by [facility] (NEURONTIN) 2-09 mouth. [facility] - 800 MG 00:00: Medical tablet 00 [place] lisinopriL 2019-03 Yes take 1 [facility] (PRINIVIL,Z 2-09 tablet (40 Siddhartha kes - ESTRIL) 40 00:00: mg) by Medic al MG tablet 00 oral route Cent er once daily gabapentin 2019-03 Yes Take by [facility] (NEURONTIN) 2-09 mouth. [facility] - 800 MG 00:00: Medical tablet 00 [place] lisinopriL 2019-03 Yes take 1 [facility] (PRINIVIL,Z 2-09 tablet (40 Siddhartha kes - ESTRIL) 40 00:00: mg) by Medic al MG tablet 00 oral route Cent er once daily gabapentin 2019-03 Yes Take by [facility] (NEURONTIN) 2-09 mouth. [facility] - 800 MG 00:00: Medical tablet 00 [place] lisinopriL 2019-03 Yes take 1 [facility] (PRINIVIL,Z 2-09 tablet (40 Siddhartha kes - ESTRIL) 40 00:00: mg) by Medic al MG tablet 00 oral route Cent er once daily gabapentin 2019-03 Yes Take by [facility] (NEURONTIN) 2-09 mouth. [facility] - 800 MG 00:00: Medical tablet 00 [place] lisinopriL 2019-03 Yes take 1 [facility] (PRINIVIL,Z 2-09 tablet (40 Siddhartha kes - ESTRIL) 40 00:00: mg) by Medic al MG tablet 00 oral route Cent er once daily gabapentin 2019-03 Yes Take by [facility] (NEURONTIN) 2-09 mouth. [facility] - 800 MG 00:00: Medical tablet 00 [place] lisinopriL 2019-03 Yes take 1 [facility] (PRINIVIL,Z 2-09 tablet (40 Siddhartha kes - ESTRIL) 40 00:00: mg) by Medic al MG tablet 00 oral route Cent er once daily gabapentin 2019-03 Yes Take by [facility] (NEURONTIN) 2-09 mouth. [facility] - 800 MG 00:00: Medical tablet 00 [place] lisinopriL 2019-03 Yes take 1 [facility] [...] 2019-03- No inject kit=boxes Ac cess KwikPen 2-09 04-08 5-10 Units [facility]alt [facility] (U-100) 00:00: 00:00 [...] times per day with food clopidogrel 2019-03 take 1 Acc ess 75 mg 05-07 [...] subcutaneou morning s pen and evening gabapentin 2019-03- No 1{table Q8H take 1 [...] for 3 Heal th U-100 00:00: 00:00 [facility] Insulin 100 00 :00 us route 2 supply unit/mL (3 times per mL) day in the [facility] morning s pen and evening carvedilol 2019-03- No take 1 Acce ss 25 mg 05-07 tablet (25 Health tablet 00:00: 00:00 mg) by 00 :00 oral route 2 times per day with food clopidogrel 2019-03 No take 1 Acc ess 75 mg 05-07 tablet (75 Health tablet 00:00: 00:00 mg) by 00 :00 oral route once daily amlodipine 2019-03 No take 1 Acce ss 5 mg tablet 05-07 tablet (5 [facility] alth 00:00: 00:00 mg) by 00 :00 oral route once daily atorvastati 2019-03- No take 1 Acc ess n 80 mg 05-07 tablet by Health tablet 00:00: 00:00 Oral route 00 :00 1 time per day amlodipine 2019-03- No take 1 Acce ss [...] subcutaneou morning s pen and evening gabapentin 2019-03- No 1{table Q8H take 1 [...] 00 :00 oral route once daily amlodipine 2019-03 No take 1 Acce ss 5 mg tablet 05-07 tablet (5 He alth 00:00: 00:00 mg) by 00 :00 oral route once daily atorvastati 2019-03 take 1 Acc ess n 80 mg [...] 00 :00 oral route once daily sulfamethox No 160mg{t Q.5D Take 1 [facility] [...] 160mg{t Q.5D Take [address] [facility] azole-trime -08 04-15 rimetho tablet Siddhartha kes - thoprim 00:00: 23:59 prim} (160 mg of Me dical (BACTRIM 00 :00 trimethopr Cente r DS) 800-160 im total) mg per by mouth 2 tablet (two) times daily for 10 days smx-tmp DS (BACTRIM) 800-160 mg tabs (1tab q12 D10). sulfamethox 2020-0 2020- No 160mg{t Q.5D Take [address] [facility] azole-trime -08 04-15 rimetho tablet Siddhartha kes - thoprim 00:00: 23:59 prim} (160 mg of Me dical (BACTRIM 00 :00 trimethopr Cente r DS) 800-160 im total) mg per by mouth 2 tablet (two) times daily for 10 days smx-tmp DS (BACTRIM) 800-160 mg tabs (1tab q12 D10). sulfamethox 2020-0 2020- No 160mg{t Q.5D Take [address] [facility] azole-trime -08 04-15 rimetho tablet Siddhartha kes - thoprim 00:00: 23:59 prim} (160 mg of Me dical (BACTRIM 00 :00 trimethopr Cente r DS) 800-160 im total) mg per by mouth 2 tablet (two) times daily for 10 days smx-tmp DS (BACTRIM) 800-160 mg tabs (1tab q12 D10). HYDROcodone 2020-0 2020- No 1{tbl} Take [address] -acetaminop -08 04-12 tablet by Siddhartha robertson (NORCO 00:00: 23:59 mouth Medic al 5-325) 00 :00 every 6 Center 5-325 mg (six) per tablet hours as needed for Pain for up to 7 days. Max Daily Amount: 4 tablets HYDROcodone 2019-0 2020- No 1{tbl} Take [address] -acetaminop -08 04-12 tablet by Siddhartha robertson (NORCO 00:00: 23:59 [...] by 00 oral route once daily gabapentin 0 No 1{table Q8H take 1 Ac cess 800 mg 8-13 t} tablet by Health tablet 00:00: oral route 00 3 times every day Humalog 2019- No inject Access KwikPen 8-13 5-10 Units Health (U-100) 00:00: by Insulin 100 00 Subcutaneo unit/mL us route 3 subcutaneou times per s day on a sliding scale three times a day before meals isosorbide 2019-0 No take 1 Acces s mononitrate 8-13 [...] 50 [facility] Subcutaneo Insulin 100 00 :00 us route 2 unit/mL (3 times per mL) [facility] evening lisinopril No [...] route 2 times per day carvedilol 2019- take 1 Acce ss 25 mg 11-08 [...] 2019- take 1 Acce ss 40 mg 11-08 [...] 00 :00 oral route once daily gabapentin 2019-2019- No 1{table Q8H take 1 [...] 50 [facility] ss Flex[facility] 00:00 Subcutaneo Insulin 100 00 :00 us route 2 unit/mL (3 times per mL) [facility] and evening lisinopril take [...] 00 :00 3 times every day Humalog 2020-0 2020- No inject Access KwikPen 11-08 5-10 Units [...] take 1 Acc ess n 80 mg 8-13 12-09 tablet by Health tablet 00:00: 00:00 Oral [...] 50 [facility] Flex[facility] 11-[facility] 00:00 Subcutaneo Insulin 100 00 :00 us route 2 unit/mL (3 times per mL) day in the subcutaneou morning s pen and evening lisinopril 2019- take 1 Acce ss 40 mg 11-08 [...] 00 :00 1 time per day bumetanide 2020-0 2020- No take [...] 00 :00 3 times every day gabapentin 2019-0 2019- No 1{table Q8H take 1 A ccess 800 mg 11-08 t} tablet by Health tablet 00:00: 00:00 oral route 00 :00 3 times every day bumetanide 2019-0 2019- No take 1 [...] morning s pen and evening Levemir 2019- No inject 50 Acce ss [...] 2019-2019- No inject 50 [facility] ss FlexTouch 07-03- Units by [facility]alt [facility] U-100 00:00: 00:00 Subcutaneo Insulin 100 00 :00 us route 2 unit/mL (3 times per mL) day in the subcutaneou morning s pen and evening Levemir 2019- No inject 50 [facility] FlexTouch 07-03 [...] 00 :00 oral route once daily Humalog 2019-2019- No inject Access KwikPen 07-02 [...] isosorbide 2019- take 1 [facility]ce [facility] mononitrate 07-02 tablet [...] No take 1 Acce ss 25 mg 4-06 08-13 tablet (25 Health tablet 00:00: 00:00 mg) [...] 00 :00 oral route once daily Humalog 2019-2019- No inject Access KwikPen 07-02 [...] 00 :00 oral route once daily atorvastati 2019-2019- No take 1 Acc ess n 80 mg 07-02 tablet by Health tablet 00:00: 00:00 Oral route 00 :00 1 time per day metolazone 2019-2019- No take 1 Acce ss 5 mg tablet 07-02 tablet (5 He alth 00:00: 00:00 mg) by 00 :00 oral route once daily carvedilol 2019- take 1 [facility]ce ss 25 [...] 00 :00 oral route once daily lisinopril 2019- No take 1 Acce ss 40 mg 07-02 tablet (40 Health tablet 00:00: 00:00 mg) by 00 :00 oral route once daily isosorbide 2019- No take 1 [facility]ce ss mononitrate 07-02 tablet (60 H ealth ER 60 mg 00:00: 00:00 mg) by tablet,exte 00 :00 oral route nded once daily release 24 in the hr morning clopidogrel 2019-2019- No take 1 Acc ess 75 mg 07-02 tablet (75 Health tablet 00:00: 00:00 mg) by 00 :00 oral route once daily carvedilol take 1 [facility] ss 25 mg 07-02 tablet (25 Health tablet 00:00: 00:00 mg) by 00 :00 oral route 2 times per day with food atorvastati take 1 Acc ess n 80 mg 07-02 tablet by Health tablet 00:00: 00:00 Oral route 00 :00 1 time per day amlodipine No take 1 Acce ss 5 mg tablet 07-02 tablet (5 He alth 00:00: 00:00 mg) by 00 :00 oral route once daily Humalog No inject Access KwikPen 07-02 5-10 Units [facility]alt [facility] (U-100) 00:00: 00:00 by Insulin 100 00 :00 Subcutaneo unit/mL us route 3 subcutaneou times per s day on a sliding scale three times a day before meals Humalog 2019- inject Access KwikPen 07-02 5-10 Units Healt [...] 00 :00 1 time per day carvedilol 2019-2019- take 1 [facility]ce ss 25 mg 07-02 tablet (25 Health tablet 00:00: 00:00 mg) by 00 :00 oral route 2 times per day with food clopidogrel 2019-2019- No take 1 Acc ess 75 mg [...] oral route 2 times per day Levemir 2019-2019- No inject 34 [facility] FlexTouch 07-02 04-07 [facility] 00:00 Subcutaneo Insulin [...] oral route 2 times per day bumetanide 20192019- No take 1 d/c lasix Access 1 mg tablet 2 04-06 tablet (1 He alth 00:00: 00:00 mg) [...] and evening Humalog No inject Access KwikPen 04-04-06 5-10 Units [...] daily Humalog 2019- No inject Access KwikPen 04-0406 5-10 Units [facility]alt [facility] (U-100) 00:00: 00:00 by Insulin 100 00 :00 Subcutaneo unit/mL us route 3 subcutaneou times per s day on a sliding scale three times a day before meals Levemir inject 34 Acce ss FlexTouch 04-04-06 Units by [facility]alt [facility] U-100 00:00: 00:00 Subcutaneo Insulin 100 00 :00 us route 2 unit/mL (3 times per mL) day in the subcutaneou morning s pen and evening metolazone 2019- No take 1 Acce ss 5 mg tablet 04-04 tablet (5 He alth 00:00: 00:00 mg) by 00 :00 oral route once daily lisinopril No take 1 Acce ss 40 mg 04-04 tablet (40 Health tablet 00:00: 00:00 mg) by 00 :00 oral route once daily isosorbide take 1 Acce ss mononitrate 04-04 tablet (60 H ealth ER 60 mg 00:00: 00:00 mg) by tablet,exte 00 :00 oral route nded once daily release 24 in the hr morning clopidogrel take 1 Acc ess 75 mg 04-04 tablet (75 Health tablet 00:00: 00:00 mg) by 00 :00 oral route once daily carvedilol take 1 Acce ss 25 mg 04-04 tablet (25 Health tablet 00:00: 00:00 mg) by 00 :00 oral route 2 times per day with food atorvastati take 1 Acc ess n 80 mg 04-04 tablet by Health tablet 00:00: 00:00 Oral route 00 :00 1 time per day amlodipine No take 1 Acce ss 5 [...] (3 times per mL) day in the [facility] morning s pen and evening Humalog inject [...] 00 :00 oral route once daily lisinopril take 1 Acce ss 40 mg 04-04 tablet (40 Health tablet 00:00: 00:00 mg) by 00 :00 oral route once daily isosorbide 2019- No take 1 Acce ss mononitrate 04-04 tablet (60 H ealth ER 60 mg 00:00: 00:00 mg) by tablet,exte 00 :00 oral route nded once daily release 24 in the hr morning clopidogrel 2019-2019- No take 1 Acc ess 75 mg 04-04 tablet (75 Health tablet 00:00: 00:00 mg) by 00 :00 oral route once daily carvedilol 2019- No take 1 Acce ss 25 mg 04-04 tablet (25 Health tablet 00:00: 00:00 mg) by 00 :00 oral route 2 times per day with food atorvastati take 1 Acc ess n 80 mg 04-04 tablet by Health tablet 00:00: 00:00 Oral route 00 :00 1 time per day metolazone 2019- No take 1 [...] 2019- take 1 Acc ess 75 mg 04-04 [...] No take 1 Acce ss 40 mg 04-04- tablet (40 Health tablet 00:00: 00:00 mg) by 00 :00 oral route once daily furosemide 2019-0 2020- No 1{table Q12H take [...] Q12H take 1 A ccess 40 mg 1- 02-11 t} tablet by Health tablet 00:00: 00:00 oral route 00 :00 2 times every day furosemide 2020-0 2020- No 1{table Q12H take 1 A ccess 40 mg 1-07 02-11 t} tablet by Health tablet 00:00: 00:00 oral route 00 :00 2 times every day furosemide 2020-0 2020- No 1{table Q12H take 1 A ccess 40 mg 1- 02-11 t} tablet by Health tablet 00:00: [...] 00 :00 2 times every day ipratropium 2019-0 2020- No inhale 3 [...] 2020- No inhale 3 A ccess -albuterol 04-04- [...] 2020- No inhale 3 A ccess -albuterol 04-04- milliliter He alth 0.5 mg-3 00:00: 00:00 s by mg(2.5 mg 00 :00 nebulizati base)/3 mL on route 4 nebulizatio times per n soln day and as needed, up to 6 doses per day ipratropium 2020-0 2020- No inhale 3 A ccess -albuterol [...] up to 6 doses per day amlodipine take 1 Acce ss 5 mg [...] 34 [facility] ss [facility] 00:00 Subcutaneo Insulin 100 00 :00 us route 2 unit/mL (3 times per mL) day in the subcutaneou morning s pen and evening lisinopril 2019- No take 1 Acce ss 40 mg 07-26 tablet (40 Health tablet 00:00: 00:00 mg) by 00 :00 oral route once daily metolazone 2019- No take 1 Acce ss 5 mg tablet 4-30 01-07 tablet (5 He alth 00:00: 00:00 mg) [...] daily Humalog 2019- No inject Access KwikPen 4-30 01-07 5-10 Units Healt [facility] (U-100) 00:00: 00:00 [...] 34 [facility] ss Flex[facility] 00:00 Subcutaneo Insulin [...] No inject Access K[facility]Pen 07-26 [facility]:00: 00:00 by Insulin [...] Acce ss mg tablet 07-26 tablets by [facility] 00:00: 00:00 Oral route 00 :00 1 time per day 1-3 hours before bedtime for restless legs Requip 0.5 take 2 Acce ss mg tablet 07-26 tablets by [facility] 00:00: 00:00 Oral route 00 :00 1 time per day 1-3 hours before bedtime for restless legs ipratropium inhale 3 A ccess -albuterol 07-26 milliliter He alth 0.5 mg-3 00:00: 00:00 s by mg(2.5 mg 00 :00 nebulizati base)/3 mL on route 4 nebulizatio times per n soln day and as needed, up to 6 doses per day Humalog inject Access KwikPen 07-26 5-10 Units Healt h (U-100) 00:00: 00:00 by Insulin 100 00 :00 Subcutaneo unit/mL us route 3 subcutaneou times per s day on a sliding scale three times a day before meals clopidogrel take 1 Acc ess 75 mg 07-26 tablet (75 Health tablet 00:00: 00:00 mg) by 00 :00 oral route once daily carvedilol take 1 Acce [facility] 25 mg 07-26 tablet (25 Health tablet 00:00: 00:00 mg) by 00 :00 oral route 2 times per day with food ProAir HFA inhale 2 Ac cess 90 07-26 puffs (180 Health mcg/actuati 00:00: 00:00 mcg) by on aerosol 00 :00 inhalation inhaler route every 4 hours as needed metolazone 2019- No take 1 Acce [facility] 5 mg tablet 07-26 tablet (5 He alth 00:00: 00:00 mg) by 00 :00 oral route once daily lisinopril No take 1 Acce ss 40 mg 07-26 tablet (40 Health tablet 00:00: 00:00 mg) by 00 :00 oral route once daily Levemir No inject 34 Ac[facility]: 00:00 Subcutaneo Insulin 100 00 :00 us route 2 unit/mL (3 times per mL) day in the subcutaneou morning s pen and evening isosorbide No take 1 Acce [facility] mononitrate 07-26 tablet (60 H ealth ER 60 mg 00:00: 00:00 mg) by tablet,exte 00 :00 oral route nded once daily release 24 in the hr morning bumetanide No take 1 Acce ss 1 mg tablet 07-26 tablet (1 He alth 00:00: 00:00 mg) by 00 :00 oral route 2 times per day atorvastati No take 1 Acc ess n 80 mg 07-26 tablet by Health tablet 00:00: 00:00 Oral route 00 :00 1 time per day amlodipine No take 1 Acce ss 5 mg tablet 07-26 tablet (5 He alth 00:00: 00:00 mg) by 00 :00 oral route once daily amlodipine No take 1 Acce [facility] 5 mg tablet 07-26 tablet (5 He alth 00:00: 00:00 mg) by 00 :00 oral route once daily atorvastati 2019-0 2020- No take 1 Acc ess n 80 mg 4-30 01-07 tablet by Health tablet 00:00: 00:00 Oral [...] 34 Acce [facility] FlexTouch 07-[facility]: 00:00 Subcutaneo Insulin [...] release 24 in the hr morning Humalog 2019- No inject [facility] KwikPen 07-26 5-10 Units Healt [facility] (U-100) 00:00: 00:00 by Insulin 100 00 :00 Subcutaneo unit/mL us route 3 subcutaneou times per s day on a sliding scale three times a day before meals Levemir 2019- No inject 34 Acce ss FlexTouch 07-26 Units by Healt h U-100 00:00: 00:00 Subcutaneo Insulin 100 00 :00 us route 2 unit/mL (3 times per mL) day in the subcutaneou morning s pen and evening lisinopril 2019- No take 1 Acce ss 40 mg 07-26 tablet (40 Health tablet 00:00: 00:00 mg) by 00 :00 oral route once daily Requip 0.5 2019- No take 2 Acce ss mg tablet 07-26 tablets by Hea lth 00:00: 00:00 Oral route 00 :00 1 time per day 1-3 hours before bedtime for restless legs ipratropium 2019- No inhale 3 A ccess -albuterol 07-26 milliliter He alth 0.5 mg-3 00:00: 00:00 s by mg(2.5 mg 00 :00 nebulizati base)/3 mL on route 4 nebulizatio times per n soln day and as needed, up to 6 doses per day Humalog 2019- No inject Access KwikPen 07-26 5-10 Units [facility]alt [facility] (U-100) 00:00: 00:00 by Insulin 100 00 :00 Subcutaneo unit/mL us route 3 subcutaneou times per s day on a sliding scale three times a day before meals clopidogrel 2019- No take 1 Acc ess 75 mg 07-26 tablet (75 Health tablet 00:00: 00:00 mg) by 00 :00 oral route once daily carvedilol No take 1 Acce ss 25 mg 07-26 tablet (25 Health tablet 00:00: 00:00 mg) by 00 :00 oral route 2 times per day with food ProAir HFA No inhale 2 Ac cess 90 07-26 puffs (180 Health mcg/actuati 00:00: 00:00 mcg) by on aerosol 00 :00 inhalation inhaler route every 4 hours as needed metolazone 2019- No take 1 Acce ss 5 mg tablet 07-26 tablet (5 He alth 00:00: 00:00 mg) by 00 :00 oral route once daily ipratropium No inhale 3 A ccess -albuterol [...] 34 Acce ss FlexTouch 07-26 [facility]:00: 00:00 Subcutaneo Insulin [...] Acce ss mg tablet 07-26 tablets by [facility] 00:00: 00:00 Oral route 00 :00 1 [...] Acces s chloride ER t} tablet by [facility] 10 mEq oral route tablet,exte every day nded with food release potassium No 1{table Q1D take 1 Acces s chloride ER t} tablet by [facility] 10 mEq oral route tablet,exte every day [...] oral route :00 every 2 days metolazone 2021- No 1{table Q2D take 1 Acc ess 2.5 mg 04-08 t} tablet by Health tablet 00:00 oral route :00 every 2 days metolazone 1- No 1{table Q2D take 1 Acc ess 2.5 mg 04-08 t} tablet by Health tablet 00:00 oral route :00 every 2 days metolazone 1- No 1{table Q2D take 1 Acc ess 2.5 mg 04-08 t} tablet by Health tablet 00:00 oral route :00 every 2 days metolazone 1- No 1{table Q2D take 1 Acc ess 2.5 mg 04-08 t} tablet by Health tablet 00:00 oral route :00 every 2 days metolazone 2020- No 1{table Q2D take 1 Acc ess 2.5 mg 04-08 t} tablet by Health tablet 00:00 oral route :00 every 2 days metolazone 1- No 1{table Q2D take 1 Acc ess 2.5 mg 04-08 t} tablet by Health tablet 00:00 oral route :00 every 2 days metolazone 1- No 1{table Q2D take 1 Acc ess 2.5 mg 04-08 t} tablet by Health tablet 00:00 oral route :00 every 2 days metolazone 1- No 1{table Q2D take 1 Acc ess 2.5 mg 04-08 t} tablet by Health tablet 00:00 oral route :00 every 2 days metolazone 1- No 1{table Q2D take 1 Acc ess 2.5 mg 04-08 t} tablet by Health tablet 00:00 oral route :00 every 2 days metolazone 1- No 1{table Q2D take 1 Acc ess 2.5 mg 04-08 t} tablet by Health tablet 00:00 oral route :00 every 2 days metolazone 1- No 1{table Q2D take 1 Acc ess 2.5 mg 04-08 t} tablet by Health tablet 00:00 oral route :00 every 2 days metolazone 1- No 1{table Q2D take 1 Acc ess 2.5 mg 04-08 t} tablet by Health tablet 00:00 oral route :00 every 2 days metolazone 1- No 1{table Q2D take 1 Acc ess 2.5 mg 04-08 t} tablet by Health tablet 00:00 oral route :00 every 2 days Immunizations Ordered Filled Date Status Comments Source Immunization Name Immunization Name Flu (split) (2020-03-06 Completed Note: Access or older) 00:00:00 Administered Flu Health vaccine without any complications. [facility] 03/06/2020 ; Source: New Immunization Record Flu (split) (2020-03-06 Completed Note: Access or older) 00:00:00 Administered Flu Health vaccine without any complications. [facility] 03/06/2020 ; Source: New Immunization Record Flu (split) (2020-03-06 Completed Note: Access or older) 00:00:00 Administered Flu Health vaccine without any complications. [facility] 03/06/2020 ; Source: New Immunization Record Flu (split) (2020-03-06 Completed Note: Access or older) 00:00:00 Administered Flu Health vaccine without any complications. [facility] 03/06/2020 ; Source: New Immunization Record Flu (split) (2020-03-06 Completed Note: Access or older) 00:00:00 Administered Flu Health vaccine without any complications. [facility] 03/06/2020 ; Source: New Immunization Record Flu (split) (2020-03-06 Completed Note: Access or older) 00:00:00 Administered Flu Health vaccine without any complications. [facility] 03/06/2020 ; Source: New Immunization Record Flu (split) (2020-03-06 Completed Note: Access or older) 00:00:00 Administered Flu Health vaccine without any complications. [facility] 03/06/2020 ; Source: New Immunization Record Flu (split) (2020-03-06 Completed Note: Access or older) 00:00:00 Administered Flu Health vaccine without any complications. [facility] 03/06/2020 ; Source: New Immunization Record Flu (split) (2020-03-06 Completed Note: Access or older) 00:00:00 Administered Flu Health vaccine without any complications. [facility] 03/06/2020 ; Source: New Immunization Record Flu (split) (2020-03-06 Completed Note: Access or older) 00:00:00 Administered Flu Health vaccine without any complications. [facility] 03/06/2020 ; Source: New Immunization Record Flu [...] Administered Flu Health vaccine without any complications. [facility] 03/06/2020 ; Source: New Immunization Record Flu (split) (2020-03-06 Completed Note: Access or older) 00:00:00 Administered Flu Health vaccine without any complications. [facility] 03/06/2020 ; Source: New Immunization Record Flu (split) (2020-03-06 Completed Note: Access or older) 00:00:00 Administered Flu Health vaccine without any complications. [facility] 03/06/2020 ; Source: New Immunization Record Flu (split) (2020-03-06 Completed Note: Access or older) 00:00:00 Administered Flu Health vaccine without any complications. [facility] 03/06/2020 ; Source: New Immunization Record Flu (split) (2020-03-06 Completed Note: Access or older) 00:00:00 Administered Flu Health vaccine without any complications. [facility] 03/06/2020 ; Source: New Immunization Record Flu (split) (2020-03-06 Completed Note: Access or older) 00:00:00 Administered Flu Health vaccine without any complications. [facility] 03/06/2020 ; Source: New Immunization Record Flu (split) (2020-03-06 Completed Note: Access or older) 00:00:00 Administered Flu Health vaccine without any complications. [facility] 03/06/2020 ; Source: New Immunization Record Flu (split) (2020-03-06 Completed Note: Access or older) 00:00:00 Administered Flu Health vaccine without any complications. [facility] 03/06/2020 ; Source: New Immunization Record Flu (split) (3 yrs 2020-03-06 Completed Note: Access or older) 00:00:00 Administered Flu Health vaccine without any complications. [facility] 03/06/2020 ; Source: New Immunization Record Flu (split) (3 2020-03-06 Completed Note: Access or older) 00:00:00 Administered Flu Health vaccine without any complications. [facility] 03/06/2020 ; Source: New Immunization Record Flu (split) (3 2020-03-06 Completed Note: Access or older) 00:00:00 Administered Flu Health vaccine without any complications. [facility] 03/06/2020 ; Source: New Immunization Record Flu (split) (3 2020-03-06 Completed Note: Access or older) 00:00:00 Administered Flu Health vaccine without any complications. [facility] 03/06/2020 ; Source: New Immunization Record Influenza [...] [facility] 00:00[facility]00 - [facility] Influenza 2017-03-[address] [facility] PF 5+ YR 00:00:00 - [facility] Influenza 2017-03-[address] [facility]-T[facility] PF 5+ YR 00:00:00 - [facility] Influenza 2017-03-[address] [facility]-T[facility] PF 5+ YR 00:00:00 - [facility] Influenza 2017-03-[address] [facility] PF 5+ YR 00:00:00 - [facility] Influenza 2017-03-[address] [facility] PF 5+ YR 00:00:00 - [facility] Influenza 2017-03-[address] [facility]-T[facility] PF 5+ YR 00:00:00 - [facility] Vital Signs Vital Name Observation Time [...] WEIGHT 2019 00:00:00 121.11 kg Body height 2021-05-13 09:13:00 172.72 cm [facility] Patient Body Weight 2021-05-13 09:13:00 111.039 kg A [facility] Systolic 2021-05-13 09:13:00 134 mm[Hg] [facility] Intravascular 2021-05-13 09:13:00 90 mm[Hg] [facility] Diastolic Heart Beat 2021-05-13 09:13:00 70 /min [facility] Body Temperature 2021-05-13 09:13:00 36.50 Bernarda [facility] Body mass index 2021-05-13 09:13:00 37.22 kg/m2 [facility] Body height 2021-01-29 09:34:00 172.72 cm [facility] Patient Body Weight 2021-01-29 09:34:00 112.672 kg [facility] Systolic 2021-01-29 09:34:00 126 mm[Hg] [facility] Intravascular 2021-01-29 09:34:00 76 mm[Hg] [facility] Diastolic Heart Beat 2021-01-29 09:34:00 89 /min [facility] Body Temperature 2021-01-29 09:34:00 36.28 Bernarda [facility] Respiratory Rate 2021-01-29 09:34:00 18 /min [facility] Body mass index 2021-01-29 09:34:00 37.77 kg/m2 Acc s [facility] Body height 2020-12-03 08:35:00 172.72 cm [facility] Patient Body Weight 2020-12-03 08:35:00 109.406 kg [facility] Systolic 2020-12-03 08:35:00 121 mm[Hg] [facility] Intravascular 2020-12-03 08:35:00 79 mm[Hg] [facility] Diastolic Heart Beat 2020-12-03 08:35:00 80 /min [facility] Body Temperature 2020-12-03 08:35:00 36.33 Bernarda [facility] Respiratory Rate 2020-12-03 08:35:00 18 /min [facility] Body mass index 2020-12-03 08:35:00 36.67 kg/m2 Acc [facility] Body height 2020-10-29 08:12:00 172.72 cm [facility] Patient Body Weight 2020-10-29 08:12:00 117.480 kg [facility] Systolic 2020-10-29 08:12:00 102 mm[Hg] [facility] Intravascular 2020-10-29 08:12:00 67 mm[Hg] [facility] Diastolic Heart Beat 2020-10-29 08:12:00 72 /min [facility] Body Temperature 2020-10-29 08:12:00 36.28 Bernarda [facility] Respiratory Rate 2020-10-29 08:12:00 18 /min [facility] Body mass index 2020-10-29 08:12:00 39.38 kg/m2 [facility] Heart rate 2020-09-29 08:55:00 76 /min [facility] Respiratory rate 2020-09-29 08:55:00 18 /min [facility] Oxygen saturation in 2020-09-29 08:55:00 97 /min [facility] - Arterial blood by Medical Ce nter Pulse oximetry Systolic blood 2020-09-29 04:00:00 134 mm[Hg] [facility] Diastolic blood 2020-09-29 04:00:00 76 mm[Hg] [facility] Body temperature 2020-09-29 04:00:00 37 Bernarda [facility] Body weight 2020-09-23 13:36:00 125.646 kg [facility] BMI 2020-09-23 13:36:00 39.75 kg/m2 [facility] Body height 2020-09-22 14:00:00 177.8 cm [facility] Body height 2020-09-17 10:27:00 172.72 cm [facility] Body Weight 2020-09-17 10:27:00 129.365 kg [facility] Systolic 2020-09-17 10:27:00 122 mm[Hg] [facility] Int[facility] 2020-09-17 10:27:00 71 mm[Hg] [facility] Diastolic Heart Beat 2020-09-17 10:27:00 82 /min [facility] Body Temperature 2020-09-17 10:27:00 36.56 Bernarda [facility] Respiratory Rate 2020-09-17 10:27:00 18 /min [facility] Body mass index 2020-09-17 10:27:00 43.36 kg/m2 [facility] Body height 2020-08-15 15:21:00 172.72 cm [facility] Patient Body Weight 2020-08-15 15:21:00 122.016 kg [facility] Systolic 2020-08-15 15:21:00 165 mm[Hg] [facility] Int[facility] 2020-08-15 15:21:00 97 mm[Hg] [facility] Diastolic Heart Beat 2020-08-15 15:21:00 86 /min [facility] Temperature 2020-08-15 15:21:00 36.28 Bernarda [facility] Respiratory Rate 2020-08-15 15:21:00 18 /min [facility] Body mass index 2020-08-15 15:21:00 40.90 kg/m2 [facility] Body height 2020-04-26 09:59:00 172.72 cm Access [...] Body mass index 2018-09-06 09:34:00 40.70 kg/m2 [facility] Body height 2018-07-26 15:37:00 68.00 [...] Body mass index 2018-07-26 15:37:00 40.00 kg/m2 [facility] Body height 2018-03-30 13:09:00 68.00 [...] Body mass index 2018-03-30 13:09:00 39.70 kg/m2 [facility] Body height 2017-12-20 07:28:00 68.00 [...] Health Intravascular Systolic 2015-05-03 15:36:00 195 mm[Hg] [facility] Health Intravascular 2015-05-03 15:36:00 100 mm[Hg] [facility] Diastolic Heart Beat 2015-05-03 15:36:00 75 /min [facility] Body Temperature 2015-05-03 15:36:00 97.90 [degF] [facility] Health Respiratory Rate 2015-05-03 15:36:00 20 /min [facility] Health Body mass index 2015-05-03 15:36:00 37.20 kg/m2 [facility] Procedures Procedure Date / Time Performing Clinician Source Performed FOLLOW-UP 2021-05-20 00:00:00 [facility] PHONE CALL TO 2021-05-20 00:00:00 [facility] SHORT TERM- SCREENED, 2021-05-20 00:00:00 [facility] REFUSED PHONE CALL TO 2021-05-16 00:00:00 [facility] SHORT TERM - SCREENED - 2021-05-15 00:00:00 [facility] Health QUALIFIED PHONE CALL TO 2021-05-15 00:00:00 [facility] SHORT TERM - SCREENED - 2021-05-14 00:00:00 [facility] [employer] QUALIFIED SHORT TERM - COOR/HUGO 2021-05-14 00:00:00 [facility] SHORT TERM PATIENT AT ER 2021-05-14 00:00:00 [facility] SINCE LAST VISIT GLUCOSE BLOOD TEST 2021-05-13 00:00:00 [facility] OFFICE/OUTPATIENT VISIT 2021-05-13 00:00:00 [facility] EST OFFICE/OUTPATIENT VISIT 2021-01-29 00:00:00 [facility] EST COMPREHEN METABOLIC PANEL 2021-01-29 00:00:00 [facility] Health URINALYSIS AUTO W/SCOPE 2021-01-29 00:00:00 [facility] UR ALBUMIN QUANTITATIVE 2021-01-29 00:00:00 [facility] GLYCOSYLATED HEMOGLOBIN 2021-01-29 00:00:00 [facility] TEST VITAMIN D 25 HYDROXY 2021-01-29 00:00:00 [facility] ASSAY OF NATRIURETIC 2021-01-29 00:00:00 [facility] PEPTIDE ASSAY OF BLOOD/URIC ACID 2021-01-29 00:00:[address] [facility] Health ASSAY OF PHOSPHORUS 2021-01-29 00:00:00 [facility] RBC SED RATE AUTOMATED 2021-01-29 00:00[facility] MAGNESIUM 2021-01-29 00:00:00 [facility] C-REACTIVE PROTEIN 2021-01-29 00:00:00 [facility] GLUCOSE BLOOD TEST 2020-12-03 00:00:00 [facility] OFFICE/OUTPATIENT VISIT 2020-12-03 00:00:00 [facility] EST Insulin injection 2020-12-03 00:00:00 [facility] THER/PROPH/DIAG INJ SC/IM 2020-12-03 00:00:00 [facility] COMPREHEN METABOLIC PANEL 2020-12-03 00:00:00 [facility] Health ASSAY OF NATRIURETIC 2020-12-03 00:00:00 [facility] PEPTIDE ASSAY OF PHOSPHORUS 2020-12-03 00:00:00 [facility] GLUCOSE BLOOD TEST 2020-10-29 00:00:00 [facility] OFFICE/OUTPATIENT VISIT 2020-10-29 00:00:00 [facility] EST COMPLETE CBC W/AUTO DIFF 2020-10-29 00:00:[address] [facility] Health WBC COMPREHEN METABOLIC PANEL 2020-10-29 00:00:00 [facility] [employer] URINALYSIS AUTO W/SCOPE 2020-10-29 00:00:00 [facility] LIPID PANEL 2020-10-29 00:00:00 [facility] GLYCOSYLATED HEMOGLOBIN 2020-10-29 00:00:00 [facility] TEST VITAMIN D 25 HYDROXY 2020-10-29 00:00:00 [facility] ASSAY OF NATRIURETIC 2020-10-29 00:00:00 [facility] PEPTIDE ASSAY OF MAGNESIUM 2020-10-29 00:00:00 [facility] ASSAY OF PARATHORMONE 2020-10-29 00:00:00 [facility] HAND, MINIMUM THREE VIEWS, 2020-10-29 00:00:00 A [facility] RADIOLOGIC EXAM CBC W/PLT COUNT & AUTO 2020-09-29 04:29:00 Hensley, [facility] BASIC METABOLIC PANEL (7) 2020-09-29 04:29:00 Ayden Gretchen MARROQUIN I [facility] MAGNESIUM 2020-09-29 04:29:00 Ayden [facility] CBC W/PLT COUNT & AUTO 2020-09-29 04:29:00 Ayden [facility] POCT-GLUCOSE METER 2020-09-28 17:27:00 Shieh, [facility] POCT-GLUCOSE METER 2020-09-28 12:49:00 Shieh, [facility] POCT-GLUCOSE METER 2020-09-28 05:58:00 Shieh, [facility] CBC W/PLT COUNT & AUTO 2020-09-28 04:49:00 Ayden [facility] BASIC METABOLIC PANEL (7) 2020-09-28 04:49:00 Ayden Gretchen MARROQUIN [facility] MAGNESIUM 2020-09-28 04:49:00 Ayden [facility] CBC W/PLT COUNT & AUTO 2020-09-28 04:49:00 Ayden Gretchen [facility] POCT-GLUCOSE METER 2020-09-27 20:57:00 Shieh, [facility] POCT-GLUCOSE METER 2020-09-27 19:07:00 Shieh, [facility] POCT-GLUCOSE METER 2020-09-27 12:26:00 Shieh, [facility] POCT-GLUCOSE METER 2020-09-27 06:36:00 Shieh, [facility] CBC W/PLT COUNT & AUTO 2020-09-27 03:45:00 Ayden [facility] BASIC METABOLIC PANEL (7) 2020-09-27 03:45:00 Gretchen Hensley [facility] MAGNESIUM 2020-09-27 03:45:00 Gretchen Hensley [facility] CBC W/PLT COUNT & AUTO 2020-09-27 03:45:00 Gretchen Hensley [facility] POCT-GLUCOSE METER 2020-09-26 23:12:00 Parish [facility] POCT-GLUCOSE METER 2020-09-26 18:20:00 Parish [facility] POCT-GLUCOSE METER 2020-09-26 13:31:00 Parish [facility] XR FOOT 3 VIEWS LEFT 2020-09-26 08:38:00 Laura Nguyen [facility] POCT-GLUCOSE METER 2020-09-26 08:34:00 Parish [facility] ANAEROBIC CULTURE 2020-09-26 08:07:57 [facility] 2020-09-26 08:07:57 Laura Nguyen [facility] - CULTURE + GRAM STAIN Medical Matty ter ANAEROBIC CULTURE 2020-09-26 08:02:39 Laura Nguyen [facility] SURGICALLY OBTAINED 2020-09-26 08:02:39 Laura Nguyen [facility] - CULTURE + GRAM STAIN Medical Matty ter TISSUE EXAM 2020-09-26 07:56:00 Laura Nguyen [facility] AMPUTATION,TOE 2020-09-26 07:12:00 Laura Nguyen [facility] CBC W/PLT COUNT & AUTO 2020-09-26 04:37:00 Gretchen Hensley [facility] BASIC METABOLIC PANEL (7) 2020-09-26 04:37:00 Gretchen Hensley [facility] MAGNESIUM 2020-09-26 04:37:00 Ayden [facility] B-TYPE NATRIURETIC FACTOR 2020-09-26 04:37:00 Parish [facility] (BNP) [facility] CBC W/PLT COUNT & AUTO 2020-09-26 04:37:00 Ayden [facility] POCT-GLUCOSE METER 2020-09-25 21:10:00 Janetisrael [facility] POCT-GLUCOSE METER 2020-09-25 16:15:00 Janeteh [facility] POCT-GLUCOSE METER 2020-09-25 11:21[facility]00 [facility] POCT-GLUCOSE METER 2020-09-25 06:02[facility] & AUTO 2020-09-25 04:44:00 [facility] BASIC METABOLIC PANEL (7) 2020-09-25 04:44:00 Ayden [facility] MAGNESIUM 2020-09-25 04:44:00 Ayden [facility] CBC W/PLT COUNT & AUTO 2020-09-25 04:44:00 Hensley [facility] POCT-GLUCOSE METER 2020-09-24 20:36:00 [facility] POCT-GLUCOSE METER 2020-09-24 17:37:00 [facility] HC ARTERIAL DOPPLER LEGS 2020-09-24 13:22:00 Laura Nguyen [facility] POCT-GLUCOSE METER 2020-09-24 06:34:00 Hensley [facility] CBC W/PLT COUNT & AUTO 2020-09-24 05:11:00 [facility] BASIC METABOLIC PANEL (7) 2020-09-24 05:11:00 Ayden [facility] MAGNESIUM 2020-09-24 05:11:00 [facility] PTH, INTACT 2020-09-24 05:11:[address] [facility] VITAMIN D, 25-HYDROXY 2020-09-24 05:11:00 Nneka, [facility] CBC W/PLT COUNT & AUTO 2020-09-24 05:11:00 Ayden [facility] IRON, TIBC, % SAT. 2020-09-24 05:10:00 Nneka, [facility] 2020-09-24 05:10:00 Nneka, [facility] POCT-GLUCOSE METER 2020-09-23 21:25:00 Ayden [facility] US RENAL COMPLETE 2020-09-23 20:30:00 Nneka, [facility] URINALYSIS W/ REFLEX URINE 2020-09-23 16:58:00 Nneka, max jeffries [facility] SODIUM, RANDOM URINE 2020-09-23 16:58:00 Nneka, [facility] CHLORIDE, RANDOM URINE 2020-09-23 16:58:00 Nneka, [facility] Vikash CH I Lost [facility] POTASSIUM, RANDOM URINE 2020-09-23 16:58:00 Nneka, max [facility] UREA NITROGEN, RANDOM 2020-09-23 16:58:00 Nneka, [facility] CREATININE, RANDOM URINE 2020-09-23 16:58:00 Nneka, [facility] PROTEIN, RANDOM URINE 2020-09-23 16:58:00 Nneka, [facility] POCT-GLUCOSE METER 2020-09-23 16:20:00 [facility] POCT-[facility]SE METER 2020-09-23 11:40:00 Ayden [facility] 2D ECHO W/ DOPPLER 2020-09-23 08:00:54 Ayden [facility] (CW/PW/COLOR) [facility] POCT-GLUCOSE METER 2020-09-23 07:58:00 [facility] XR FOOT 3 VIEWS LEFT 2020-09-23 07:33:00 Kayode Nguyenine Jackie Neida [facility] CBC W/PLT COUNT & AUTO 2020-09-23 04:51:00 [facility] BASIC METABOLIC PANEL (7) 2020-09-23 04:51:00 Gretchen Hensley I [facility] MAGNESIUM 2020-09-23 04:51:00 [facility] PHOSPHORUS 2020-09-23 04:51:00 Ayden [facility] CBC W/PLT COUNT & AUTO 2020-09-23 04:51:00 [facility] POCT-GLUCOSE METER 2020-09-22 20:46:00 [facility] POCT-GLUCOSE METER 2020-09-22 17:01:00 [facility] SARS-COV2/RT-PCR ([facility] & 2020-09-22 10:50:00 Hensley [facility] - REF LABS) [facility] B-TYPE NATRIURETIC FACTOR 2020-09-22 06:54:00 David Riddle [facility] (BNP) [facility] BASIC METABOLIC PANEL (7) 2020-09-22 06:54:00 David Riddle [facility] CBC W/PLT COUNT & AUTO 2020-09-22 06:54:[address] [facility] PT/APTT 2020-09-22 06:54:00 David Riddle [facility] TROPONIN I 2020-09-22 06:54:00 David Riddle [facility] CBC W/PLT COUNT & AUTO 2020-09-22 06:54:[address] [facility] ED ECG INTERPRETATION 2020-09-22 06:40:53 David Riddle [facility] XR CHEST 1 VIEW PORTABLE / 2020-09-22 06:36:00 David Riddle [facility] REPORT OF PROCEDURE - 2020-09-22 00:00:00 ProviderMolina [facility] ENDOSCOPY SCAN Scanning [facility] GLUCOSE BLOOD TEST 2020-09-17 00:00:00 [facility] OFFICE/OUTPATIENT VISIT 2020-09-17 00:00:00 [facility] EST GLUCOSE BLOOD TEST 2020-08-15 00:00:00 [facility] OFF[facility]/OUTPATIENT VISIT 2020-08-15 00:00:00 [facility] EST COMPREHEN METABOLIC PANEL 2020-08-15 00:00:00 [facility] LIPID PANEL 2020-08-15 00:00:00 [facility] GLYCOSYLATED HEMOGLOBIN 2020-08-15 00:00:00 [facility] TEST ASSAY OF NATRIURETIC 2020-08-15 00:00:00 [facility] PEPTIDE PFIZER- ADM SARSCOV2 2020-07-24 00:00:00 [facility] 30MCG/0.3ML 2ND PFIZER-ADM SARSCOV2 2020-06-28 00:00:00 [facility] 30MCG/0.3ML 1ST CBC W/PLT COUNT & AUTO 2020-04-30 18:40:[address] [facility] LACTIC ACID, VENOUS 2020-04-30 18:40:00 David Riddle CH I [facility] COMPREHENSIVE METABOLIC 2020-04-30 18:40:00 David Riddle [facility] PROTHROMBIN TIME/INR 2020-04-30 18:40:00 David Riddle HI [facility] TYPE AND SCREEN, AUTOMATED 2020-04-30 18:40:00 David Riddle [facility] CBC W/PLT COUNT & AUTO 2020-04-30 18:40:[address] [facility] GLUCOSE BLOOD TEST 2020-04-26 00:00:00 Access Barry [facility] OFFICE/OUTPATIENT VISIT 2020-04-26 00:00:00 [facility] EST POCT-GLUCOSE METER 2020-04-06 08:02:00 Frandy Lugo [facility] BASIC METABOLIC PANEL (7) 2020-04-06 04:26:00 Fradny Lugo [facility] CBC W/PLT COUNT & AUTO 2020-04-06 04:26:00 Frandy Lugo [facility] CBC W/PLT COUNT & AUTO 2020-04-06 04:26:00 Frandy Lugo [facility] POCT-GLUCOSE METER 2020-04-05 22:06:00 Frandy Lugo [facility] POCT-GLUCOSE METER 2020-04-05 15:18:00 Frandy Lugo [facility] POCT-GLUCOSE METER 2020-04-05 11:37:00 Frandy Lugo [facility] IR PICC LINE PLACEMENT 2020-04-05 11:14:00 Frandy Lugo [facility] OLDER THAN 5 YRS [facility] POCT-GLUCOSE METER 2020-04-05 09:23:00 Frandy Lugo [facility] POCT-GLUCOSE METER 2020-04-05 07:59:00 Frandy Lugo [facility] BASIC METABOLIC PANEL (7) 2020-04-05 04:40:00 Frandy Lugo [facility] CBC W/PLT COUNT & AUTO 2020-04-05 04:40:00 Frandy Lugo [facility] CBC W/PLT COUNT & AUTO 2020-04-05 04:40:00 Frandy Lugo [facility] VANCOMYCIN LEVEL, TROUGH 2020-04-04 23:37:00 Stephane Echavarria I [facility] POCT-GLUCOSE METER 2020-04-04 21:14:00 Frandy Lugo [facility] POCT-GLUCOSE METER 2020-04-04 15:41:00 Frandy Lugo [facility] POCT-GLUCOSE METER 2020-04-04 11:36:00 Shieh, Frandy C [facility] POCT-GLUCOSE METER 2020-04-04 07:45:00 Frandy Lugo [facility] PROTEIN ELECTROPHORESIS, 2020-04-04 05:23:00 FelicecliffordKeven [facility] PTH, INTACT 2020-04-04 05:23:00 eKven Tiwari [facility] BASIC METABOLIC PANEL (7) 2020-04-04 05:23:00 Frandy Lugo [facility] CBC W/PLT COUNT & AUTO 2020-04-04 05:23:[address] [facility] CBC W/PLT COUNT & AUTO 2020-04-04 05:23:[address] [facility] POCT-GLUCOSE METER 2020-04-03 21:31:00 Frandy Lugo [facility] KAPPA / LAMBDA LIGHT 2020-04-03 17:10:00 Keven Tiwari [facility] HC LAB HIV-1 AG W/HIV-1&2 2020-04-03 17:10:00 Keven Tiwari [facility] HEPATITIS PANEL, ACUTE 2020-04-03 17:10:[address] [facility] CBC W/PLT COUNT & AUTO 2020-04-03 17:10:00 Keven Tiwari [facility] BASIC METABOLIC PANEL (7) 2020-04-03 17:10:00 Frandy Lugo [facility] CBC W/PLT COUNT & AUTO 2020-04-03 17:10:00 Keven Tiwari [facility] POCT-GLUCOSE METER 2020-04-03 16:05:00 Frandy Lugo [facility] POCT-GLUCOSE METER 2020-04-03 11:34:00 Frandy Lugo [facility] PROTEIN, RANDOM URINE 2020-04-03 10:52:00 [facility] SODIUM, RANDOM URINE 2020-04-03 10:39:00 Frandy Lugo [facility] CREATININE, RANDOM URINE 2020-04-03 10:39:00 Frandy Lugo [facility] UREA NITROGEN, RANDOM 2020-04-03 10:39:00 Frandy Lugo [facility] URINALYSIS W/ MICROSCOPIC 2020-04-03 10:39:00 Frandy Lugo [facility] B-TYPE NATRIURETIC FACTOR 2020-04-03 10:20:00 Milagros Lainez [facility] (BNP) [facility] US RENAL COMPLETE 2020-04-03 08:45:00 Frandy Lugo [facility] POCT-GLUCOSE METER 2020-04-03 07:27:00 [facility] ([facility] ONLY[facility] 2020-04-03 04:48:00 [facility] BASIC METABOLIC PANEL (7) 2020-04-03 04:48:00 Lilliam [facility] PHOSPHORUS 2020-04-03 04:48:00 [facility] VANCOMYCIN LEVEL, TROUGH 2020-04-02 22:02:00 Jazmin Willard [facility] POCT-GLUCOSE METER 2020-04-02 21:17:00 Lilliam [facility] CT LOWER EXTREMITY WITHOUT 2020-04-02 17:38:00 Ray Ellis [facility] POCT-GLUCOSE METER 2020-04-02 15:51:00 [facility] PO[facility]SE METER 2020-04-02 11:43:00 [facility] (HEMOGRAM ONLY) 2020-04-02 06:31:00 Lilliam [facility] BASIC METABOLIC PANEL (7) 2020-04-02 06:31:00 Lilliam [facility] POCT-GLUCOSE METER 2020-04-01 15:37:00 [facility] ANAEROB[facility] C[facility] 2020-04-01 13:30:14 Patrick [facility] SURGICALLY OBTAINED 2020-04-01 13:30:14 Patrick [facility] - CULTURE + GRAM STAIN Medical [facility]ty [facility] ANAEROBIC CULTURE 2020-04-01 13:21:05 [facility] SURGICALLY OBTAINED 2020-04-01 13:21:05 Patrick [facility] - CULTURE + GRAM STAIN [facility] TISSUE EXAM 2020-04-01 13:12:00 Patrick [facility] POCT-GLUCOSE METER 2020-04-01 12:48:00 Lilliam [facility] DEBRIDEMENT/I&D,WOUND 2020-04-01 11:52:00 Patrick [facility] POCT-GLUCOSE METER 2020-04-01 11:37:00 Lilliam [facility] ECG 12-LEAD 2020-04-01 08:42:02 Unknown, Hl7 [facility] ECG 12-LEAD 2020-04-01 08:42:02 Unknown, Hl7 [facility] POCT-GLUCOSE METER 2020-04-01 07:24:00 Lilliam [facility] BASIC METABOLIC PANEL (7) 2020-04-01 03:58:00 Lilliam [facility] POCT-GLUCOSE METER 2020-03-31 20:42:00 [facility] POCT-GLUCOSE METER 2020-03-31 15:27:00 [facility] POCT-GLUCOSE METER 2020-03-31 11:22:00 Lilliam, [facility] POCT-GLUCOSE METER 2020-03-31 07:18:00 [facility] BASIC METABOLIC PANEL (7) 2020-03-31 04:47:00 [facility] HEMOGLOBIN A1C 2020-03-31 04:47:00 [facility] CBC W/PLT COUNT & AUTO 2020-03-31 04:47:00 [facility] CBC W/PLT COUNT & AUTO 2020-03-31 04:47:00 [facility] POCT-GLUCOSE METER 2020-03-30 21:59:00 [facility] XR FOOT 3 VIEWS LEFT 2020-03-30 21:05:00 [facility] WOUND CULTURE + GRAM STAIN 2020-03-30 20:54:00 Cody [facility] SARS-COV2/RT-PCR ([facility] & 2020-03-30 20:50:00 [facility] REF [facility]) [facility] BLOOD CULTURE 2020-03-30 20:49:00 Cody [facility] CBC W/PLT COUNT & AUTO 2020-03-30 20:49:00 [facility] BASIC METABOLIC PANEL (7) 2020-03-30 20:49:[address] [facility] [facility] CBC W/PLT COUNT & AUTO 2020-03-30 20:49:00 [facility] CARDIAC CATH REPORT - SCAN 2020-03-30 00:00:00 Provider, [facility] REPORT OF PROCEDURE - 2020-03-30 00:00:00 Provider, [facility] ENDOSCOPY SCAN Scanning [facility] BLOOD CULTURE 2020-03-20 01:07:00 David Riddle [facility] LACTIC ACID, VENOUS 2020-03-20 01:07:00 David Riddle CH I [facility] CBC W/PLT COUNT & AUTO 2020-03-20 00:55:[address] [facility] BASIC METABOLIC PANEL (7) 2020-03-20 00:55:00 David Riddle [facility] C-REACTIVE PROTEIN 2020-03-20 00:55:00 David Riddle [facility] CBC W/PLT COUNT & AUTO 2020-03-20 00:55:[address] [facility] BLOOD CULTURE 2020-03-20 00:54:00 David Riddle [facility] XR FOOT 3 VIEWS LEFT 2020-03-20 00:37:00 David Riddle HI [facility] GLUCOSE BLOOD TEST 2020-03-06 00:00:00 Access [facility] Insulin injection 2020-03-06 00:00:00 Access Hea [...] INCISION AND DRAINAGE 2019 07:17:11 Tyshawn Serra [facility] GLUCOSE BLOOD TEST 2019-11-09 00:00:00 [...] s - Test 00:00:00 (procedure) [code = [facility] 62012396] Future Scheduled 2023-03-[address] [facility] 00:00:00 (procedure) [code = [facility] 19887980] Future Scheduled 2023-03-[address] [facility] Test 00:00:00 (procedure) [code = [facility] 60405504] Future Scheduled 2023-03-[address] [facility] Test 00:00:00 (procedure) [code = [facility] 60754703] Future Scheduled 2023-03-[address] [facility] Test 00:00:00 (procedure) [code = [facility] 97637899] Future Scheduled 2023-03-[address] [facility] - Test 00:00:00 (procedure) [code = [facility] 77018557] Future Scheduled 2023-03-[address] - Test 00:00:00 (procedure) [code = [facility] 66748226] Future Scheduled 2021-09-[address] [facility] examination Medical Center (regime/therapy) [code = 615433526] Future Scheduled 2021-09-[address] [facility] 00[facility]00[facility] examination Medical Center (regime/therapy) [code = 397769447] Future Scheduled 2021-09-[address] [facility] 00[facility] examination [facility] Center (regime/therapy) [code = 387836303] Future Scheduled 2021-09-[address] [facility] 00:00[facility]00 examination Medical Center (regime/therapy) [code = 848993892] Future Scheduled 2021-09-[address] [facility] 00:00[facility]00 examination Medical Center (regime/therapy) [code = 558619808] Future Scheduled 2021-09-[address] [facility] 00:00:00 examination Medical Center (regime/therapy) [code = 403495752] Future Scheduled 2021-09-[address] [facility] 00:00:00 examination Medical Center (regime/therapy) [code = 206146778] Future Scheduled 2020-11-27 INFLUENZA VACCINE (#1) C [...] 00:00:00 measurement Medical Center (procedure) [code = 07958871] Future Scheduled 2020-06-[address] [facility] 00:[facility]:00 measurement [facility] (procedure) [code = 72767182] Future Scheduled 2020-06-[address] [facility] Test 00:00:00 measurement [facility] Center (procedure) [code = 44530499] Future Scheduled 2020-06-[address] [facility] 00:00:00 measurement [facility] (procedure) [code = 72822304] Future Scheduled 2020-06-[address] [facility] Test 00:00:00 measurement [facility] (procedure) [code = 76453089] Future Scheduled 2020-06-[address] [facility] Test 00:00:00 measurement [facility] (procedure) [code = 19969802] Future Scheduled 2020-06-[address] [facility] Test 00:00:00 measurement Medical Center (procedure) [code = 31484162] Future Scheduled 2018-06-11 Urine screening [facility] Test 00:00:00 protein (procedure) Medical Center [code = 293797488] Future Scheduled 2018-06-11 Urine screening [facility] Test 00:00:00 protein (procedure) Medical Center [code = 059609211] Future Scheduled 2018-06-11 Urine screening [facility] Test 00:00:00 protein (procedure) Medical Center [code = 854522645] Future Scheduled 2018-06-11 Urine screening [facility] Test 00:00:00 protein (procedure) Medical Center [code = 254113334] Future Scheduled 2018-06-11 Urine screening for [facility] Test 00:00:00 protein (procedure) Medical Center [code = 721934923] Future Scheduled 2018-06-11 Urine screening for [facility] - Test 00:00:00 protein (procedure) Medical Center [code = 738995708] Future Scheduled 2018-06-11 Urine screening [facility] Test 00:00:00 protein (procedure) Medical Center [code = 418998690] Future Scheduled 1992 DTAP/TDAP/TD VACCINES CH I [...] [facility] Center colon (procedure) [code = 310630407] Future Scheduled [address] [facility] 00:00:00 malignant neoplasm of [facility] colon (procedure) [code = 171515455] Future Scheduled [address] [facility] Test 00:00:00 [facility] colon (procedure) [code = 332644306] Future Scheduled [address] [facility] 00:00:00 [facility] colon (procedure) [code = 604498333] Future Scheduled [address] 00:00:00 [facility] colon (procedure) [code = 607390198] Future Scheduled [address] 00:00:00 [facility] colon (procedure) [code = 492580617] Future Scheduled [address] [facility] 00:00:00 [facility] colon (procedure) [code = 411800668] Encounters Start End Encounter Admission Attending Care Care Encounter Source Date/Time Date/Time Type Type Clinicians Facility Department ID 2021-06-20 Outpatient [facility] [id number] [place] 17:29:31 [id number] [facility] 2020-05-24 Inpatient [facility] [id number] [facility] 09:38:00 -[id number] [facility] 2020-05-10 Inpatient [facility] [id number] [facility] 14:02:00 -[id number] [facility] 2021-05-05 2021-06-05 Outpatient Neida NGUYEN [facility] [id number] 09:28:00 23:59:00 [facility] 2021-05-20 2021-05-20 Outpatient YANDY LAWSON [facility] [id number] Access 15:35:00 15:35:00 Health 2021-05-20 2021-05-20 Outpatient YANDY LAWSON [facility] [id number] Access 15:35:00 15:35:00 [id number] Health [id number] 2021-05-16 2021-05-16 Outpatient YANDY LAWSON [facility] [id number] Access 12:33:00 12:33:00 Health 2021-05-16 2021-05-16 Outpatient YANDY LAWSON [facility] [id number] Access 12:33:00 12:33:00 [id number] [facility] [id number] 2021-05-15 2021-05-15 Outpatient YANDY LAWSON [facility] [id number] Access 08:15:00 08:15:00 Health 2021-05-15 2021-05-15 Outpatient YANDY LAWSON [facility] [id number] Access 08:15:00 08:15:00 [id number] 2021-05-14 2021-05-14 Outpatient SHELBY, [facility] [id number] Access 08:39:00 08:39:00 SAMANTHA Oh h 2021-05-14 2021-05-14 Outpatient SHELBY, [facility] [id number] Access 08:39:00 08:39:00 SAMANTHA [id number] Health [id number] 2021-05-13 2021-05-13 Outpatient DIANE, [facility] [id number] Access 09:00:00 09:00:00 [facility] 2021-05-13 2021-05-13 [facility] [id number] Access 09:00:00 09:00:00 PATIENT MIRTA [id number] Health VISIT EST [id number] alexander [id number] 2021-05-12 2021-05-12 Outpatient DIANELTAC, [facility] [id number] Access 07:26:00 07:26:00 [facility] 2021-05-12 2021-05-12 [facility] [id number] Access 07:26:00 07:26:00 [facility] [id number] [facility] [id number] 2021-05-05 Outpatient Neida NGUYEN [facility] [id number] 10:26:00 23:59:00 [facility] 2021-05-01 2021-05-01 Outpatient DIANELTAC, [facility] [id number] Access 11:26:00 11:26:00 [facility] 2021-05-01 2021-05-01 [facility] [id number] Access 11:26:00 11:26:00 [facility] [id number] Health [id number] alexander [id number] 2021-04-02 2021-04-02 Outpatient DIANE, [facility] [id number] Access 11:59:00 11:59:00 [facility] 2021-04-02 2021-04-02 Outpatient DIANE, [facility] [id number] Access 11:59:00 11:59:00 [facility] [id number] Health [id number] alexander [id number] 2021-03-27 2021-03-27 Outpatient DIANE, [facility] [id number] Access 08:12:00 08:12:00 [facility] 2021-03-27 2021-03-27 Outpatient DIANE, [facility] [id number] Access 08:12:00 08:12:00 [facility] [id number] Health [id number] alexander [id number] 2021-02-05 2021-02-05 Outpatient NURSE, [facility] [id number] Access 08:34:00 08:34:00 NURSE [facility] 2021-02-05 2021-02-05 Outpatient NURSE, [facility] [id number] Access 08:34:00 08:34:00 NURSE [id number]-[id number] Health [id number] alexander [id number] 2021-01-31 Outpatient DIANE, [facility] [id number] Access 12:07:00 12:07:00 [facility] 2021-01-31 2021-01-31 Outpatient DIANE [facility] [id number] Access 12:07:00 12:07:00 [facility] [id number] [facility] [id number] 2021-01-29 2021-01-29 Outpatient DIANE, [facility] [id number] Access 10:00:00 10:00:00 [facility] 2021-01-29 2021-01-29 OFFICE/OUT DIANE, [facility] [id number] Access 10:00:00 10:00:00 PATIENT MIRTA [id number] Health VISIT EST [id number] alexander [id number] 2021-01-06 2021-01-06 Outpatient OSEI, [facility] [id number] Access 10:24:00 10:24:00 [facility] 2021-01-06 2021-01-06 Outpatient OSEI, [facility] [id number] Access 10:24:00 10:24:00 [facility] [id number] [facility] [id number] alexander [id number] 2020-12-11 2020-12-11 Outpatient OSEI, [facility] [id number] Access 14:09:00 14:09:00 [facility] 2020-12-11 2020-12-11 Outpatient OSEI, [facility] [id number] Access 14:09:00 14:09:00 [facility] [id number] [facility] [id number] 2020-12-11 2020-12-11 Outpatient NURSE, [facility] [id number] Access 13:49:00 13:49:00 NURSE [facility] 2020-12-11 2020-12-11 Outpatient NURSE, [facility] [id number] Access 13:49:00 13:49:00 NURSE [id number] Health [id number] alexander [id number] 2020-12-06 2020-12-06 Outpatient DIANE, [facility] [id number] Access 10:17:00 10:17:00 [facility] 2020-12-06 2020-12-06 Outpatient DIANE, [facility] [id number] Access 10:17:00 10:17:00 [facility] [id number]-[id number] Health [id number] alexander [id number] 2020-11-04 2020-12-05 Outpatient Neida NGUYEN [facility] [id number] [place] 09:15:00 23:59:00 [facility] 2020-12-03 2020-12-03 Outpatient CONTRERASLTAC, [facility] [id number] Access 09:00:00 09:00:00 [facility] 2020-12-03 2020-12-03 [id number] Access 09:00:00 09:00:00 PATIENT MIRTA [id number] Health VISIT EST [id number] alexander [id number] 2020-12-03 Outpatient [facility] [id number] Access 00:00:00 00:00:00 [facility] 2020-12-03 2020-12-03 [facility] [id number] Access 00:00:00 00:00:00 [facility] [id number] [facility] [id number] 2020-10-07 2020-11-06 Outpatient Neida NGUYEN [facility] [id number] [place] 08:58:00 15:34:00 [facility] 2020-11-02 2020-11-02 Outpatient CONTRERASLTAC, LOCATED [facility]IN [facility] [id number] Access 10:08:00 10:08:00 [facility] 2020-11-02 2020-11-02 [facility] [id number] Access 10:08:00 10:08:00 [facility] 22-4926-a4f 3ac-4fb1-9 Health f-[id number] 3ff-44aa5d alexander acf95f 2020-10-29 2020-10-29 [facility] [id number] [place] 10:49:00 23:59:00 [facility] 2020-10-29 2020-10-29 Outpatient DIANE [facility] [id number] Access 08:30:00 08:30:00 [facility] 2020-10-29 2020-10-29 OFFICE/OUT DIANE [facility] [id number]-8t b [id number] Access 08:30:00 08:30:00 PATIENT MIRTA 22-4926-a4f 799-42b5-b Health VISIT EST f-[id number] k4c-9m1a6x alexander [id number] 2020-10-01 2020-10-01 Outpatient DIANE [facility] [id number] Access 13:25:00 13:25:00 [facility] 2020-10-01 2020-10-01 [facility] [id number] 0 [id number] Access 13:25:00 13:25:00 [facility] 22-4926-a4f bbe-4dcc-9 Health f-32438425y 976-38ac3a alexander [id number] 1504-06-27 2020-09-29 Hospital ER Venkatesh David Garciaar [facility] [id number] [facility] 06:13:00 13:20:00 Encounter Gretchen Hensley [facility] 2020-09-26 2020-09-26 Surgery Patrick, [facility] [id number] [facility] 07:00:00 08:30:00 [facility] 2020-09-26 2020-09-26 Anesthesia Joanie [facility] [id number] 07:12:00 08:20:00 Event [facility] 2020-09-22 2020-09-22 Emergency ER [facility] [id number] [facility] 06:09:00 06:09:00 2020-09-22 2020-09-22 Travel [facility] [id number] [facility] 00:00:[facility] 00:00:00 [facility] 2020-09-17 2020-09-17 Outpatient DIANE, [facility] [id number] Access 10:30:00 10:30:00 [facility] 2020-09-17 2020-09-17 OFFICE/OUT DIANE, [facility] [id number]-z Access 10:30:00 10:30:00 PATIENT MIRTA -4926-a4f j3e-1701-p Health VISIT EST f-[id number] 571-p0q326 alexander [id number] 2020-08-19 2020-08-19 Outpatient OMORI, [facility] [id number] Access 16:36:00 16:36:00 NAIF marie 2020-08-19 2020-08-19 Outpatient OMORI, [facility] [id number] ffa [id number] Access 16:36:00 16:36:00 NAIF Estrella-4926-a4f 77c-448d- a Health f-88359325b [id number] alexander [id number] 2020-08-15 2020-08-15 Outpatient OMORI, [facility] [id number] Access 16:00:00 16:00:00 NAIF marie 2020-08-15 2020-08-15 OFFICE/OUT OMSTEFANI, [facility] [id number] b2d [id number] Access 16:00:00 16:00:00 PATIENT NAIF 22-4926-a4f 9f2-09vc- 8 Health VISIT EST f-[id number] bfe-b7e8ff alexander [id number] 2020-07-04 2020-07-04 Outpatient OMORI, [facility] [id number] Access 08:04:00 08:04:00 NAIF marie 2020-07-04 2020-07-04 Outpatient OMORI, [facility] [id number] bf0 [id number] Access 08:04:00 08:04:00 NAIF Estrella-4926-a4f v81-72en- 8 Health f-93284133u 83a-8c2a7a alexander [id number] 2020-06-28 2020-06-28 Outpatient NURSE, [facility] [id number] Access 09:35:00 09:35:00 NURSE Health 2020-06-28 2020-06-28 Outpatient NURSE, [facility] [id number] Access 09:35:00 09:35:00 NURSE 89-477f-ac7 f56-5vs7-3 [facility] 5-y78k7x0b4 d75-i43t4z de3 afab8a 2020-06-19 2020-06-19 Outpatient OMORI, [facility] [id number] Access 10:00:00 10:00:00 NAIF marie 2020-06-19 2020-06-19 Outpatient OMORI, [facility] [id number]-[id number] Access 10:00:00 10:00:00 NAIF 22-4926-a4f 103-4d36- a [facility] f-86790987r [id number] alexander eaa20d 2020-05-09 2020-05-09 Outpatient OMORI, [facility] [id number] Access 12:10:00 12:10:00 NAIF marie 2020-05-09 2020-05-09 Outpatient OMORI, [facility] [id number] f95 [id number] Access 12:10:00 12:10:00 NAIF 22-4926-a4f 9af-4860- 9 [facility] f-60256731m 351-d55bc4 alexander [id number] 2020-04-30 2020-04-30 Emergency ER Elba [facility] [id number] 18:09:00 19:41:00 David [facility] 2020-04-30 2020-04-30 Emergency ER [facility] Emergency [id number] [facility] 17:53:00 17:53:00 2020-04-30 2020-04-30 Travel [facility] [id number] [facility] 00:00:00 00:00:00 [facility] 2020-04-26 2020-04-26 Outpatient OMORI, [facility] [id number] Access 10:00:00 10:00:00 NAIFEUGENE marie 2020-04-26 2020-04-26 OFFICE/OUT OMSTEFANI, [facility] [id number]-7d 8f4 g0084-k Access 10:00:00 10:00:00 PATIENT NAIF Estrella-4926-a4f 15b-403b- a Health VISIT EST f-[id number] alexander [id number] 2020-04-22 2020-04-22 Outpatient OMORI, [facility] [id number] Access 14:45:00 14:45:00 NAIF marie 2020-04-22 2020-04-22 Outpatient OMORI, [facility] [id number] 55c [id number]-3 Access 14:45:00 14:45:00 NAIF -4926-a4f 332-4409- b Health f-65765971v a20-uj07h9 alexander [id number] 2020-04-22 2020-04-22 Outpatient IRIZARRY, [facility] [id number] Access 12:41:00 12:41:00 SUKUMAR marie 2020-04-22 2020-04-22 Outpatient IRIZARRY, [facility] [id number] [id number] ddbd0-e Access 12:41:00 12:41:00 SUKUMAR e2-2qc7-27q 6c2-8l2x- 9 Health 0-pa1gia486 30c-206d01 0f4 [id number] 2020-04-18 2020-04-18 Outpatient OMORI, [facility] [id number] Access 13:20:00 13:20:00 NAIF marie 2020-04-18 2020-04-18 Outpatient OMORI, [facility] [id number]-7p 4ce [id number] Access 13:20:00 13:20:00 NAIF -4926-a4f a83-3rv8- 9 Health f-62573971v [id number] alexander [id number] 2020-04-09 2020-04-09 Outpatient OMORI, [facility] [id number] Access 09:46:00 09:46:00 NAIF marie 2020-04-09 2020-04-09 Outpatient OMORI, [facility] [id number] [id number] Access 09:46:00 09:46:00 NAIF Estrella-4926-a4f 7fb-45a5- 8 [facility]-12995272p eb3-4da5a2 alexander dfcadb 2020-03-30 2020-04-06 Hospital ER Tyshawn Serra [facility] [id number] 19:31:00 13:42:00 Encounter Abel Alatorre mohamud Ellis, Frandy Lowe [facility] 2020-04-04 2020-04-04 Outpatient [facility], [facility] [id number] Access 14:43:00 14:43:00 NAIF Oh 2020-04-04 2020-04-04 Outpatient [facility], [facility] [id number]-[id number] 1fd [id number] Access 14:43:00 14:43:00 NAIF 22-4926-a4f t7x-2u35- 9 [facility] f-[id number] [id number] alexander 6cbd5c 2020-04-01 2020-04-01 Anesthesia Jose Raul [facility] [id number] 11:51:00 12:50:00 Event [facility] 2020-04-01 2020-04-01 Surgery Patrick [facility] [id number] 11:30:00 12:45:00 [facility] 2020-04-01 2020-04-01 Orders [facility] [id number] 00:00:00 00:00:00 Only [facility] 2020-03-30 2020-03-30 Emergency ER [facility] Emergency [id number] [facility] 19:22:00 19:22:00 2020-03-30 2020-03-30 Travel [facility] [id number] [facility] 00:00:00 00:00:00 [facility] 2020-03-19 2020-03-20 Emergency ER Venkatesh [facility] [id number] 23:25:00 02:51:00 David [facility] 2020-03-19 2020-03-19 Emergency ER [facility] Emergency [id number] [facility] 23:15:00 23:15:00 2020-03-19 2020-03-19 Travel [facility] [id number] [facility] 00:00:00 00:00:00 [facility] 2020-03-08 2020-03-08 Outpatient DINH CALVO [facility] [id number] Access 12:03:00 12:03:00 Health 2020-03-08 2020-03-08 Outpatient DINH CALVO [facility] [id number] kx73madr-h Access 12:03:00 12:03:00 e2-2jq9-43p a80-5i49-i Health 0-pz1uwk994 4c3-821i1y 0f4 74b4d5 2020-03-06 2020-03-06 Outpatient OMSTEFANI, [facility] [id number] Access 15:00:00 15:00:00 NAIF marie 2020-03-06 2020-03-06 OFFICE/OUT [facility], [facility] ova372cy-2h 35b 30edf-4 Access 15:00:00 15:00:00 PATIENT NAIF 22-4926-a4f 79d-4bf4- 8 Health VISIT EST f-57526217d [id number]-ho0890 alexander t0385x 2019 2019 Emergency ER [facility] Emergency [id number] [facility] 07:11:00 07:11:00 2019-11-20 2019-11-20 Outpatient [facility] [id number] Access 10:30:00 10:30:00 NAIF marie 2019-11-20 2019-11-20 Outpatient [facility], [facility] [id number]-8n 8ff 62u2v-0 Access 10:30:00 10:30:00 NAIF 22-4926-a4f ea8-46d7- a Health f-39194205b r32-s8pda0 alexander at2186 2019-11-09 2019-11-09 Outpatient [facility], [facility] [id number] Access 16:15:00 16:15:00 NAIF marie 2019-11-09 2019-11-09 OFFICE/OUT [facility], [facility] umn045kf-7y f4c 6o161-s Access 16:15:00 16:15:00 PATIENT NAIF 22-4926-a4f i1n-4w48- 8 Health VISIT EST f-63219040h [id number] alexander [id number] 2019-09-28 2019-09-28 Outpatient ZOE, [facility] vil416oy-1y 0d0 x9460-n Access 13:21:00 13:21:00 NAIF Bravo4926-a4f 189-4af1- 9 Health f-12410352y [id number] alexander 09510q 2019-09-28 2019-09-28 Outpatient DINH CALVO [facility] [id number] [id number]-d Access 10:54:00 10:54:00 e2-8cr4-30r 730-4d70-a Health 0-ea3grs930 7ef-ba6cbd 0f4 82x243 2019-07-15 2019-07-15 Emergency [facility] [id number] [facility] 22:19:00 22:19:00 [id number] 2019-07-03 2019-07-03 OFFICE/OUT ZOE, [facility] ltv315mp-5g 81c 820u6-q Access 10:30:00 10:30:00 PATIENT NAIF Bravo4926-a4f 8cf-4b4d- b Health VISIT EST f-[id number] 1c3-sxr5hd alexander [id number] 2019-05-09 2019-05-09 Outpatient ZOE, [facility] tcp941ir-2h 405 v547q-w Access 08:16:00 08:16:00 NAIF Bravo4926-a4f t5b-86r2- b Health f-[id number] 12b-ff4e3d alexander ada41d 2019-05-01 2019-05-01 [facility] 07a i4x2k-3 Access 09:27:00 09:27:00 NURSE Shelly4926-a4f eab-46d9-9 Health f-53014166o m99-59c09s alexander 3d7d99 2019-04-11 2019-04-11 Outpatient ZOE, [facility] myb357ou-6b [id number] y6j67-t Access 17:52:00 17:52:00 NAIF Bravo4926-a4f g96-0b3q- 9 Health f-32641455i 1ed-4c31d3 alexander a7dbdd 2019-04-06 2019-04-06 Outpatient ZOE, [facility] apf199ef-9o cfd [id number] Access 17:33:00 17:33:00 NAIF Bravo4926-a4f 877-42c1- a Health f-97901076o j59-02592d alexander [id number] 2019-04-04 2019-04-04 OFFICE/OUT OZE, [facility] glt888wx-5s 0a8 4w43u-7 Access 14:30:00 14:30:00 PATIENT NAIF Bravo4926-a4f lyudmila-46ec- b Health VISIT EST f-12221243u [id number] alexander [id number] 2018-09-07 2018-09-07 Outpatient ZOE, [facility] [id number]-[id number] 7e5 64fea-3 Access 00:00:00 00:00:00 NAIF Bravo4926-a4f 2ee-4361- b Health f-22019771u j4l-0i3u58 alexander 52954m 2018-09-06 2018-09-06 Outpatient ZOE, [facility] [id number]-9d 69a 7r3d0-2 Access 09:34:00 09:34:00 NAIF Bravo4926-a4f cf2-4291- 9 [facility] f-96993355b db4-f91ed2 alexander [id number] 2018-07-26 2018-07-26 Outpatient [facility] [id number] Access 00:00:00 00:00:00 H, PROVIDER Barry garcia 2018-07-26 2018-07-26 Outpatient [facility] [id number] [id number] Access 00:00:00 00:00:00 H, PROVIDER e2-5pw6-50t 24b-42 3c-8 [facility] 0-sk9shi900 036-5ea1f1 0f4 dc6a94 2018-07-26 2018-07-26 Outpatient DIANE, [facility] nzp585pp-7v 7 lj1cs95-7 Access 00:00:00 00:00:00 MIRTA SameerRy4926-a4f u79-69c1-s Health f-67158088p i58-2n5e57 alexander d785c1 2018-07-26 2018-07-26 Outpatient OMORI, [facility] 2pc3v3b6-0j [id number] fm118-6 Access 00:00:00 00:00:00 NAIF pierre-8lp4-98q 397-493a- a Health 0-dc0yby006 1e7-i9tj9b 0f4 13046n 2018-07-26 2018-07-26 Outpatient OMORI, [facility] plf621vz-6s 499 s9s81-9 Access 00:00:00 00:00:00 NAIF 22-4926-a4f ba6-4f54- 8 Health f-22755938r 4r1-n8p07m alexander a45b7b 2018-07-25 2018-07-25 Outpatient OMORI, [facility] srk146at-7p 62b bbb95-e Access 00:00:00 00:00:00 NAIF -4926-a4f v83-4909- 8 Health f-80467395h cbf-5b3a7f alexander c0599s 2018-07-22 2018-07-22 Outpatient [facility] [id number] Access 00:00:00 00:00:00 H, PROVIDER Barry garcia 2018-07-22 2018-07-22 Outpatient [facility] [id number] [id number] Access 00:00:00 00:00:00 H, PROVIDER gabby-8xg9-23i 1b8-4b 5b-b Health 0-ub1oue755 54b-899e22 0f4 [id number] 8762-04-26 2018-07-22 Outpatient OMORI, [facility] trl303sb-9u 44d 99r44-v Access 00:00:00 00:00:00 NAIF 22-4926-a4f 8cb-4f46- b Health f-74385748u p42-163u1q alexander 871f2f 2018-07-22 2018-07-22 Outpatient CONTRERAS, [facility] [id number]-2r c [id number] Access 00:00:00 00:00:00 MIRTA 22-4926-a4f o96-6lq8-c Health f-12183073x 39a-6b8977 alexander cfbbac 2018-06-28 2018-06-28 Outpatient [facility] [id number] Access 00:00:00 00:00:00 H, PROVIDER Barry garcia 2018-06-28 2018-06-28 Outpatient [facility] [id number] [id number] Access 00:00:00 00:00:00 H, PROVIDER april9gb4-91c 17d-4e 23-9 Health 0-kx3noj731 046-469fb5 0f4 bc45ce 2018-03-30 2018-03-30 Outpatient [facility] [id number] Access 00:00:00 00:00:00 H, PROVIDER Barry garcia 2018-03-30 2018-03-30 Outpatient [facility] [id number] [id number] Access 00:00:00 00:00:00 H, PROVIDER april7vo3-47b 710-43 22-8 Health 0-ea8xil752 9o8-w0dz60 0f4 7d1bee 2018-03-30 2018-03-30 Outpatient CONTRERAS, [facility] [id number]-0x 1 i4kn12o-2 Access 00:00:00 00:00:00 MIRTA 22-4926-a4f 56a-40cb-a Health f-69491761c e76-595t60 alexander [id number] 8341-01-02 2018-03-30 Outpatient OMORI, [facility] edy474lx-8x 448 6x6ie-q Access 00:00:00 00:00:00 NAIF 22-4926-a4f 520-4c13- 8 Health f-12622294t o94-2aw4nn alexander [id number] 2017-12-28 2017-12-28 Outpatient [facility] [id number] Access 00:00:00 00:00:00 H, PROVIDER Barry garcia 2017-12-28 2017-12-28 Outpatient [facility] 7cj0n5k4-2v [id number] Access 00:00:00 00:00:00 H, PROVIDER april4rr6-28v bed-49 71-9 Health 0-kd3zyr518 255-01649h 0f4 06e2a8 2017-12-27 2017-12-27 Outpatient [facility] [id number] Access 00:00:00 00:00:00 H, PROVIDER Barry garcia 2017-12-27 2017-12-27 Outpatient [facility] [id number] [id number] Access 00:00:00 00:00:00 H, PROVIDER april0bu9-62n 1d0-43 b0-a Health 0-nb1exq095 44c-ecfa29 0f4 3cq336 2017-12-20 2017-12-20 Outpatient DIANE, [facility] mas603rm-4h 9 [id number] Access 08:48:00 08:48:00 MIRTA 22-4926-a4f 224-45e3-9 Health f-12756405v fc6-096b3d alexander 040c9a 2017-12-20 2017-12-20 Outpatient [facility] [id number] Access 00:00:00 00:00:00 H, PROVIDER Barry garcia 2017-12-20 2017-12-20 Outpatient [facility] 1dr0w2k3-5m 4sqro64m-7 Access 00:00:00 00:00:00 H, PROVIDER april2we5-25r b2c-4b 7d-b Health 0-yn8owu729 h99-16j76b 0f4 c568b3 2017-12-20 2017-12-20 Outpatient IRIZARRY, [facility] aop479ws-5v 79a 75736-z Access 00:00:00 00:00:00 KATELINE 22-4926-a4f eae-4c31- b Health f-57346645v 520-cb8578 alexander 0a3c1f 2017-12-20 2017-12-20 Outpatient OMORI, [facility] hzw028ig-1u 2e3 hhj6l-8 Access 00:00:00 00:00:00 NAIF 22-4926-a4f da8-4f41- a Health f-84936435u 12d-3adf05 alexander 0d5ff7 2017-12-20 2017-12-20 Outpatient ENRIQUE [facility] ihp053nf-6e a7c 7p723-a Access 00:00:00 00:00:00 CAROLYN -4926-a4f 6p6-5j5t-6 Health f-91268659z 8w9-j26r03 alexander 4b61d6 2017-12-20 2017-12-20 Outpatient JONAS, [facility] mfb642zd-6d cf 16sqq3-r Access 00:00:00 00:00:00 MAEVE -4926-a4f 051-44b8-b Health f-10752216v 6a7-9e6898 alexander aee2d5 2017-07-14 2017-07-14 Outpatient [facility] [id number] Access 00:00:00 00:00:00 H, PROVIDER Barry garcia 2017-07-14 2017-07-14 Outpatient [facility] [id number] gf9v9ci9-c Access 00:00:00 00:00:00 H, PROVIDER e2-7ef3-61y 109-47 80-a Health 0-ks3uln584 784-y84277 0f4 01e0fc 2017-07-14 2017-07-14 Outpatient [facility] 3zi4i3p4-1z f0f 9b27i-b Access 00:00:00 00:00:00 e2-1bo9-19e 98a-4568-b Health 0-hr6mnk221 001-941db6 0f4 9c42e9 2017-07-14 2017-07-14 Outpatient ENRIQUE, [facility] 6yu6u1p2-8h 7d1 n7lpo-5 Access 00:00:00 00:00:00 ED [facility] e2-7vs1-65r 7cb-4bf9-9 Health 0-zf1ebo690 k73-6470z6 0f4 [id number] 3473-03-16 2017-06-11 Outpatient ZOE, [facility] ghx376yt-1l ded jz318-3 Access 00:00:00 00:00:00 NAIF 22-4926-a4f 849-421a- a Health f-83697476x 11b-54fdd4 alexander [id number] 2017-06-10 2017-06-10 Outpatient [facility] [id number] Access 00:00:00 00:00:00 H, PROVIDER Barry garcia 2017-06-10 2017-06-10 Outpatient [facility] 6uh3h6j9-4c r0pky2bx-4 Access 00:00:00 00:00:00 H, PROVIDER gabby-1gk9-80t a95-4d 18-8 Health 0-wf1rhy369 67d-88e2c2 0f4 2eef4c 2017-06-10 2017-06-10 Outpatient CONTRERAS, [facility] uqw672me-0s e er0y0aj-1 Access 00:00:00 00:00:00 MIRTA 22-4926-a4f 3ac-43d9-9 Health f-88589935f 6de-77v550 alexander ceaffe 2017-06-10 2017-06-10 Outpatient EM, [facility] ohg214ig-4h 27 y9ajvb-9 Access 00:00:00 00:00:00 VITA 22-4926-a4f 0ec-4f3f -8 Health f-99699437n 4h2-5s9r10 alexander [id number] 2017-06-10 2017-06-10 Outpatient OMORI, [facility] dqi136bi-6l 6d7 lt597-l Access 00:00:00 00:00:00 NAIF 22-4926-a4f z3l-4050- b Health f-43653652i 499-jx263z alexander fag507 2017-04-09 2017-04-09 Outpatient OMORI, [facility] [id number] Access 13:28:00 13:28:00 NAIF 22-4926-a4f 27b-4f1f- 8 Health f-[id number]-[id number] alexander [id number] 2017-04-09 2017-04-09 Outpatient [facility] [id number] Access 00:00:00 00:00:00 H, PROVIDER Barry garcia 2017-04-09 2017-04-09 Outpatient [facility] [id number] Access 00:00:00 00:00:00 H, PROVIDER april3ud8-58v acc-4b a3-b Health 0-ie8ppj854 b46-05qi6r 0f4 [id number] 2017-04-09 2017-04-09 Outpatient DIANE, [facility] [id number] Access 00:00:00 00:00:00 MIRTA 22-4926-a4f be7-40fa-9 Health f-[id number] fad-beba5c alexander [id number] 2017-03-30 2017-03-30 Outpatient [facility] [id number] Access 00:00:00 00:00:00 H, PROVIDER Barry garcia 2017-03-30 2017-03-30 Outpatient [facility] [id number] Access 00:00:00 00:00:00 H, PROVIDER e2-0st4-23c e7f-41 b3-8 Health 0-pz7rhd161 0ab-[id number] 0f4 5ba25a 2017-02-09 2017-02-09 Outpatient [facility] [id number] Access 00:00:00 00:00:00 H, PROVIDER Barry garcia 2017-02-09 2017-02-09 Outpatient [facility] [id number] Access 00:00:00 00:00:00 H, PROVIDER e2-0bk3-98i eed-49 91-9 Health 0-eu7uft863 [id number] 0f4 de8ac2 2017-02-09 2017-02-09 Outpatient ZOE, [facility] [id number] Access 00:00:00 00:00:00 NAIF 22-4926-a4f t28-9r28- a Health f-[id number] j50-98q1v6 alexander [id number] 2017-02-09 2017-02-09 Outpatient DIANE, [facility] [id number] d [id number] Access 00:00:00 00:00:00 MIRTA 22-4926-a4f 34c-46bd-b Health f-[id number]-[id number] alexander faf56f 2016-12-15 2016-12-15 Outpatient [facility] [id number] Access 00:00:00 00:00:00 H, PROVIDER Barry garcia 2016-12-15 2016-12-15 Outpatient [facility] [id number] Access 00:00:00 00:00:00 H, PROVIDER e2-8rs4-72a 3ba-4a 3c-8 Health 0-[id number] 9fd-cceee0 0f4 5f5e8e 2016-12-15 2016-12-15 Outpatient CHARLY BARDALES [facility] [id number] Access 00:00:00 00:00:00 45-4k9y-r3h y7a-73e8-x Health d-[id number] 00b-ed1c16 354 e7dd8d 2016-12-12 2016-12-12 Outpatient [facility] [id number] Access 00:00:00 00:00:00 H, PROVIDER Barry garcia 2016-12-12 2016-12-12 Outpatient [facility] [id number] Access 00:00:00 00:00:00 H, PROVIDER e2-0lw1-21y 6fa-4f 7f-9 Health 0-ed2thd243 402-fe6f8d 0f4 1526bf 2016-12-12 2016-12-12 Outpatient ISAURA, [facility] [id number] Access 00:00:00 00:00:00 CHRISTINA e2-0hr5-27u j9c-9nyl- 9 Health 0-[id number] [id number] 0f4 [id number] 2016-12-11 2016-12-11 Outpatient CHARLY BARDALES [facility] [id number] Access 00:00:00 00:00:00 45-2r7m-l5l 3fe-4dc9-9 Health d-[id number]-f474cb 354 c4eb2b 2016-12-10 2016-12-10 Outpatient [facility] [id number] Access 00:00:00 00:00:00 H, PROVIDER Barry garcia 2016-12-10 2016-12-10 Outpatient [facility] [id number] Access 00:00:00 00:00:00 H, PROVIDER april4ru8-89k 706-4a aa-b Health 0-[id number] [id number] 0f4 [id number] 7717-09-14 2016-12-10 Outpatient CHARLY BARDALES [facility] [id number] Access 00:00:00 00:00:00 45-3e7y-g9y d3b-3496-p Health d-[id number] o6i-38d5w5 354 5b51dc 2016-12-01 2016-12-01 Outpatient [facility] [id number] Access 00:00:00 00:00:00 H, PROVIDER Barry garcia 2016-12-01 2016-12-01 Outpatient [facility] [id number] Access 00:00:00 00:00:00 H, PROVIDER april7mc9-04d 4f5-4c 72-9 Health 0-nv5hdg319 z6i-4hr915 0f4 8ff05c 2016-12-01 2016-12-01 Outpatient DIPIKA, [facility] [id number] Access 00:00:00 00:00:00 LAVELLE 45-0a6f-c8r 636-4710-8 Health d-[id number] 2ff-2f9a6a 354 ef57e5 2016-12-01 2016-12-01 Outpatient CHARLY BARDALES [facility] [id number] Access 00:00:00 00:00:00 45-2m5d-v2g df0-4210-a Health d-[id number] 6m1-206h9d 354 [id number] 2016-11-27 2016-11-27 Outpatient [facility] [id number] Access 00:00:00 00:00:00 H, PROVIDER Barry garcia 2016-11-27 2016-11-27 Outpatient [facility] [id number] Access 00:00:00 00:00:00 H, PROVIDER gabby-6yc4-59s db1-44 51-9 Health 0-qr9zam947 5u9-r4j626 0f4 [id number] 2406-09-01 2016-11-27 Outpatient CANAMAR, [facility] [id number] Access 00:00:00 00:00:00 LAVELLE Pepe9z7q-t6b e85-39f9-e Health d-[id number]-b0c4cd 354 eb80b5 2016-11-26 2016-11-26 Outpatient [facility] [id number] Access 00:00:00 00:00:00 H, PROVIDER Barry garcia 2016-11-26 2016-11-26 [facility] [facility] 7zj6a1p0-3d [id number]-[id number] Access 00:00:00 00:00:00 H, PROVIDER valerie7ti4-86u c45-46 cf-b Health 0-cw3ffp147 4ad-4c0e68 0f4 37dc7c 2016-11-26 2016-11-26 Outpatient CANAMAR, [facility] [id number] c0 [id number] Access 00:00:00 00:00:00 LAVELLE Pepe1v1x-s7i ae7-40e5-a Health d-u3o580466 o16-8f79o8 354 fc21e9 2016-11-20 2016-11-20 Outpatient [facility] [id number] Access 00:00:00 00:00:00 H, PROVIDER Barry garcia 2016-11-20 2016-11-20 Outpatient [facility] [id number] Access 00:00:00 00:00:00 H, PROVIDER valerie6pn3-21s 2e2-42 0d-8 Health 0-eo5ong999 g75-547b70 0f4 31v028 2016-11-20 2016-11-20 Outpatient CANAMAR, [facility] [id number] 60 91x190-c Access 00:00:00 00:00:00 LAVELLE Pepe8f1z-i5h 250-49d0-a Health d-x8g650957 aa8-0b8ad1 354 [id number] 9967-08-23 2016-11-18 Outpatient [facility] [id number] Access 00:00:00 00:00:00 H, PROVIDER Barry garcia 2016-11-18 2016-11-18 Outpatient [facility] 4nf7c5f1-0l [id number] Access 00:00:00 00:00:00 H, PROVIDER gabby-7td5-14y 7d4-4d a9-8 Health 0-dj4mxl784 v37-12jnxl 0f4 c11e26 2016-11-18 2016-11-18 Outpatient JAMELACHARLY [facility] [id number] Access 00:00:00 00:00:00 45-2v6t-c3r ea3-4257-a Health d-s5o453962 2cc-9275f9 354 e49a35 2016-11-12 2016-11-12 Outpatient CANAMAR, [facility] [id number]-66 29 [id number]-s Access 00:00:00 00:00:00 LAVELLE 45-9v0y-n5c n1a-5im9-m Health d-c8h158331 l0w-167ot4 354 ey6890 2016-11-11 2016-11-11 Outpatient [facility] [id number] Access 00:00:00 00:00:00 H, PROVIDER Barry garcia 2016-11-11 2016-11-11 Outpatient [facility] 6pg5n4s5-0w [id number] Access 00:00:00 00:00:00 H, PROVIDER e2-5ah6-48i 968-42 07-b Health 0-or7xch645 t41-169522 0f4 9f36c8 2016-11-11 2016-11-11 Outpatient CANAMAR, [facility] [id number] 7c [id number]-z Access 00:00:00 00:00:00 LAVELLE 45-2g7u-p7q 633-4aa9-8 Health d-t6j281664 fff-099958 354 ee4a0e 2016-10-30 2016-10-30 Outpatient [facility] [id number] Access 00:00:00 00:00:00 H, PROVIDER Barry garcia 2016-10-30 2016-10-30 Outpatient [facility] 8xf0s7d4-7y [id number] Access 00:00:00 00:00:00 H, PROVIDER e2-0rr5-43y 47b-46 3e-8 Health 0-vt7jtn677 o4n-aoh1v5 0f4 3o6850 2016-10-30 2016-10-30 Outpatient CHARLY BARDALES [facility] [id number]-o Access 00:00:00 00:00:00 45-1a6l-h0e evert-47eb-b Health d-g7b669356 8l9-47n7md 354 7383d1 2016-10-26 2016-10-26 Outpatient [facility] [id number] Access 00:00:00 00:00:00 H, PROVIDER Barry garcia 2016-10-26 2016-10-26 Outpatient [facility] 1aa5r2a3-0v [id number] Access 00:00:00 00:00:00 H, PROVIDER e2-5ue7-97n 1e9-4c db-b Health 0-yx5cjv882 f37-m047pu 0f4 48ce57 2016-10-26 2016-10-26 Outpatient ISAURA, [facility] 0bp8r3n0-8d e8 74sm08-5 Access 00:00:00 00:00:00 CHRISTINA e2-9wc2-97i h7l-2937- 9 Health 0-nz2ioo334 e5y-r1l4f0 0f4 7373c9 2016-10-26 2016-10-26 Outpatient OMORI, [facility] 7ro6o4o3-7v 5e5 0w8ln-6 Access 00:00:00 00:00:00 NAIF e2-7il6-18j u08-8z96- b Health 0-hk9eou799 000-pa9088 0f4 79f96a 2016-10-09 2016-10-09 Outpatient DIPIKA, [facility] [id number] cf [id number] Access 00:00:00 00:00:00 LAVELLE 45-5w7u-a4d 038-47e9-8 Health d-h9h042498 93d-796d4d 354 1ee1de 2016-10-08 2016-10-08 Outpatient [facility] [id number] Access 00:00:00 00:00:00 H, PROVIDER Barry garcia 2016-10-08 2016-10-08 Outpatient [facility] 9pl6o0h9-8b [id number] Access 00:00:00 00:00:00 H, PROVIDER april9ep0-30q 757-44 91-a Health 0-we8puq872 338-7c8ea0 0f4 k4w167 2016-10-08 2016-10-08 Outpatient CANAMAR, [facility] [id number] 46 ip1gr0-5 Access 00:00:00 00:00:00 LAVELLE Justo-6q4s-p0a i85-3s7g-o Health d-w8d406585 65d-fda44a 354 c196f4 2016-10-05 2016-10-05 Outpatient [facility] [id number] Access 00:00:00 00:00:00 H, PROVIDER Barry garcia 2016-10-05 2016-10-05 Outpatient [facility] 1av1g8n7-8h [id number]-8 Access 00:00:00 00:00:00 H, PROVIDER april5vd2-01u 137-4e 58-a Health 0-yw1yti419 0aa-78756r 0f4 qy950h 2016-10-05 2016-10-05 Outpatient CANAMAR, [facility] [id number] c9 [id number]-m Access 00:00:00 00:00:00 LAVELLE 45-2w7g-r6t 7i0-234g-r Health d-j6h424339 r32-pe65jw 354 [id number] 5983-06-29 2016-09-24 Outpatient [facility] [id number] Access 00:00:00 00:00:00 H, PROVIDER Barry garcia 2016-09-24 2016-09-24 Outpatient [facility] 7kh6b3s2-3w 96vj5e86-d Access 00:00:00 00:00:00 H, PROVIDER e2-2nk2-61y 9da-4d 9e-a Health 0-vq1juy960 n30-55668q 0f4 0747d9 2016-09-24 2016-09-24 Outpatient MENDIETA, [facility] 7zx9j8w5-5w af [id number] Access 00:00:00 00:00:00 CHRISTINA e2-5pj0-74s v80-735b- b Health 0-ql0usf842 x1i-9z930s 0f4 7bee42 2016-09-24 2016-09-24 Outpatient OMORI, [facility] 5mz6n7s2-7n 060 5d3c6-3 Access 00:00:00 00:00:00 NAIF e2-2ei0-83n 4bb-4165- a Health 0-uv4dmz646 98a-6c893v 0f4 50e173 2016-09-22 2016-09-22 Outpatient [facility] [id number] Access 00:00:00 00:00:00 H, PROVIDER Barry garcia 2016-09-22 2016-09-22 Outpatient [facility] 6fq5k9p2-6p [id number]-7 Access 00:00:00 00:00:00 H, PROVIDER e2-1yf9-04j 072-4c 2a-9 Health 0-as2rdb134 094-b1ac8e 0f4 1311cf 2016-09-22 2016-09-22 Outpatient TIMA, [facility] 7ku9t2k1-0z 292 72ebd-f Access 00:00:00 00:00:00 OSMAN e2-9og8-03e 330-4e57-a Health 0-pt6bbx203 92e-33cd44 0f4 5n2481 2016-09-22 2016-09-22 Outpatient CONTRERAS, [facility] 0xi1v7d2-0c 2 7u3vxj6-w Access 00:00:00 00:00:00 MIRTA e2-5at5-47v 87b-4174-a Health 0-uf7xol690 470-43a571 0f4 1573c2 2016-08-26 2016-08-26 Outpatient [facility] [id number] Access 00:00:00 00:00:00 H, PROVIDER Barry garcia 2016-08-26 2016-08-26 Outpatient [facility] 7wt3a0c1-3y f403ibdo-n Access 00:00:00 00:00:00 H, PROVIDER april5vv2-02d a1b-4a 92-8 Health 0-rd0pdh751 x32-4vki73 0f4 1qf016 2016-08-26 2016-08-26 Outpatient MENDIETA, [facility] 8xx3c3d0-0f da krc92a-4 Access 00:00:00 00:00:00 CHRISTINA e2-4vg0-28i 81b-44be- a Health 0-as8pld757 452-8v6057 0f4 9u7984 2016-08-26 2016-08-26 Outpatient IRIZARRY, [facility] 5ut2c8w7-9z afb 1hn14-8 Access 00:00:00 00:00:00 KATELINE e2-8ae1-91z 026-4182- b Health 0-nl1vlr135 11d-8m1559 0f4 6c9241 2016-08-26 2016-08-26 Outpatient OMORI, [facility] 3cs0f5v3-1w c21 101ca-e Access 00:00:00 00:00:00 NAIF e2-8bd5-47d n7a-7378- a Health 0-va6kmm290 ec7-u55232 0f4 92c4e9 2016-08-03 2016-08-03 Outpatient TIMA, [facility] omq238xz-6j e56 5hl66-m Access 16:13:00 16:13:00 OSMAN 22-4926-a4f 17d-4116-b Health f-01596798g 320-16acc1 alexander 11df8e 2016-07-29 2016-07-29 Outpatient [facility] [id number] Access 00:00:00 00:00:00 H, PROVIDER Barry garcia 2016-07-29 2016-07-29 Outpatient [facility] 1iw7l9j8-2g [id number] Access 00:00:00 00:00:00 H, PROVIDER april4ua2-61y 2c6-43 ca-8 Health 0-ax4rnb640 fe8-48fadf 0f4 54c2ba 2016-07-29 2016-07-29 Outpatient TIMA, [facility] eyb195lz-3e a6f 30wp8-1 Access 00:00:00 00:00:00 OSMAN 22-4926-a4f 6ad-4eac-9 Health f-46800382w ab0-86e98c alexander l8733y 2016-07-29 2016-07-29 Outpatient DIANE, [facility] sbp534bf-4y d i23zf60-9 Access 00:00:00 00:00:00 MIRTA 22-4926-a4f 3m3-09ey-7 Health f-00002546j 67a-3d9ddd alexander bwh804 2016-07-24 2016-07-24 Outpatient [facility] [id number] Access 00:00:00 00:00:00 H, PROVIDER Barry garcia 2016-07-24 2016-07-24 Outpatient [facility] 4xa6t0b2-9p [id number] Access 00:00:00 00:00:00 H, PROVIDER e2-2bl2-39y 046-4f 02-a Health 0-kr5gfs101 9q2-75hd24 0f4 062d54 2016-07-24 2016-07-24 Outpatient ISAURA, [facility] zoc924jw-2k d2 897r74-j Access 00:00:00 00:00:00 CHRISTINA 22-4926-a4f o5w-24mn- b Health f-67751552b h5l-371152 alexander c19d1a 2016-07-24 2016-07-24 Outpatient OMORI, [facility] pfx836fs-1t e3f f2h54-b Access 00:00:00 00:00:00 NAIF 22-4926-a4f e2i-10j8- 8 Health f-53638566i bba-be69db alexander 0b9f49 2016-07-17 2016-07-17 Outpatient NUNEZ, [facility] ujg589ff-5i 163 e69kw-1 Access 00:00:00 00:00:00 GAYTARI 22-4926-a4f q81-4191-t Health f-52381657s ec6-9ef36c alexander 234156 8710-04-20 2016-07-16 Outpatient [facility] [id number] Access 00:00:00 00:00:00 H, PROVIDER Barry garcia 2016-07-16 2016-07-16 Outpatient [facility] 4bk8c1o0-8i [id number]-4 Access 00:00:00 00:00:00 H, PROVIDER e2-0aw1-05m f7c-42 66-9 Health 0-ez1fzt113 762-340d90 0f4 1876fa 2016-07-16 2016-07-16 Outpatient IRIZARRY, [facility] [id number]-88 692 9m4o0-r Access 00:00:00 00:00:00 KATELINE 45-7a5z-q9t 17f-442e- a Health d-f8u541047 ddf-5g7371 354 e90b6a 2016-07-16 2016-07-16 Outpatient DIANE, [facility] sls913mf-6r c 0387fac-c Access 00:00:00 00:00:00 MIRTA 22-4926-a4f 06b-4903-a Health f-45496715b y39-0p0n24 alexander [id number] 2016-07-16 2016-07-16 Outpatient CHARLY BARDALES [facility] [id number]-23 43ppe893-d Access 00:00:00 00:00:00 45-3o8m-w4d 049-4b28-8 Health d-i5k703963 36f-72a086 354 dbx815 2016-07-16 2016-07-16 Outpatient ENRIQUE, [facility] afn504dj-8f 2cb 843o6-y Access 00:00:00 00:00:00 GAYTARI 22-4926-a4f ec3-43e2-b Health f-92977398l 989-acffbb alexander acf4d2 2016-07-14 2016-07-14 Outpatient [facility] [id number] Access 00:00:00 00:00:00 H, PROVIDER Barry garcia 2016-07-14 2016-07-14 Outpatient [facility] 1xf3u7z8-5p 137o2y2g-5 Access 00:00:00 00:00:00 H, PROVIDER e2-4wl5-97p 52f-4d 8d-9 Health 0-ai4bur518 596-929d1e 0f4 5cbb75 2016-07-14 2016-07-14 Outpatient CONTRERAS, [facility] yjp311sv-9l f [id number] Access 00:00:00 00:00:00 MIRTA 22-4926-a4f 486-43ef-b Health f-95308831v 58e-c764a4 alexander 4a23b4 2016-07-14 2016-07-14 Outpatient TIAM, [facility] lrd444oo-7h b38 8qg7c-0 Access 00:00:00 00:00:00 OSMAN 22-4926-a4f 9x5-0q02-m Health f-20357366p 532-cac9af alexander bf28b2 2016-07-06 2016-07-06 Outpatient [facility] [id number] Access 00:00:00 00:00:00 H, PROVIDER Barry garcia 2016-07-06 2016-07-06 Outpatient [facility] 5tz1n5d7-2q 000q2gj0-l Access 00:00:00 00:00:00 H, PROVIDER e2-3fe7-38d 7e3-46 ad-b Health 0-hc2yol946 60a-94304e 0f4 572998 3495-04-10 2016-07-06 Outpatient TIMA, [facility] ycl526oz-1f ca6 0064f-c Access 00:00:00 00:00:00 OSMAN 22-4926-a4f 308-477e-b Health f-40134077k 2q4-o3x02t alexander befcac 2016-07-06 2016-07-06 Outpatient CONTRERAS, [facility] hjx224eu-4r a 25h828l-3 Access 00:00:00 00:00:00 MIRTA 22-4926-a4f d38-1w57-1 Health f-68325611o r5n-dzi45b alexander d6285d 2016-07-01 2016-07-01 Outpatient [facility] [id number] Access 00:00:00 00:00:00 H, PROVIDER aBrry garcia 2016-07-01 2016-07-01 Outpatient [facility] 2st4k8y8-3d w444q2p5-3 Access 00:00:00 00:00:00 H, PROVIDER april2mr1-40j fbd-41 57-9 Health 0-lx7xep452 9a3-71447l 0f4 13dfc5 2016-07-01 2016-07-01 Outpatient CHARLY BARDALES [facility] [id number]-39 q18i9h77-6 Access 00:00:00 00:00:00 45-2t7a-f4d 8ef-44fa-9 Health d-l0b586548 145-03bbe1 354 734d1e 2016-07-01 2016-07-01 Outpatient IRIZARRY, [facility] [id number] 9f6 1438d-f Access 00:00:00 00:00:00 KATELINE 45-0f4y-m3w y39-8ymj- 9 Health d-t8j408687 0i5-5zv2o0 354 138010 6934-04-02 2016-06-28 Outpatient TIMA, [facility] bcb162zo-2a ba4 t4wx1-6 Access 00:00:00 00:00:00 OSMAN 22-4926-a4f fb6-4103-8 Health f-12945340c k65-2470v5 alexander 2t675p 2016-06-25 2016-06-25 Outpatient [facility] [id number] Access 00:00:00 00:00:00 H, PROVIDER Barry garcia 2016-06-25 2016-06-25 Outpatient [facility] 7qw6q7l5-6b [id number] Access 00:00:00 00:00:00 H, PROVIDER april8te1-97n 98e-47 c8-a Health 0-sb3tth344 u9r-z592k2 0f4 4f1aaa 2016-06-25 2016-06-25 Outpatient TIMA, [facility] thy917kx-9s 9e0 5yr6t-3 Access 00:00:00 00:00:00 OSMAN 22-4926-a4f 533-4298-a Health f-95350533b 2p9-j4w6rb alexander 723742 2237-03-30 2016-06-25 Outpatient ISAURA, [facility] [id number]-06 5d 6hbf4b-7 Access 00:00:00 00:00:00 CHRISTINA 45-7e8j-d4a z62-7400- a Health d-x6u034325 74d-bc9f79 354 [id number] 2016-06-25 2016-06-25 Outpatient ZOE, [facility] [id number]-43 643 q6ch7-6 Access 00:00:00 00:00:00 NAIF 45-3g5y-k8q 9u9-18i4- b Health d-l3r988247 def-275d83 354 yl064v 2016-06-25 2016-06-25 Outpatient DIANE, [facility] qyv044sc-3f f [id number] Access 00:00:00 00:00:00 MIRTA 22-4926-a4f o1t-66ld-j Health f-77887957k 9l2-887hk7 alexander bc1d2c 2016-06-08 2016-06-08 Outpatient [facility] [id number] Access 00:00:00 00:00:00 H, PROVIDER Barry garcia 2016-06-08 2016-06-08 Outpatient [facility] 6vm2e6k1-5g [id number]-i Access 00:00:00 00:00:00 H, PROVIDER e2-5qo3-86l d53-4b 39-b Health 0-ud0rke632 49d-bb0c97 0f4 a273a3 2016-06-08 2016-06-08 Outpatient CHARLY BARDALES [facility] [id number] [id number] Access 00:00:00 00:00:00 45-2s6w-l2f 84c-42c0-9 Health d-i6h931760 644-e9c44e 354 a4d7b9 2016-06-08 2016-06-08 Outpatient IRIZARRY, [facility] [id number] cdb 83932-j Access 00:00:00 00:00:00 KATELINE 45-0u2s-n6a 41d-4957- b Health d-f1g288812 6c3-j7zuvz 354 38a8c2 2016-05-19 2016-05-19 Outpatient [facility] [id number] Access 00:00:00 00:00:00 H, PROVIDER Barry garcia 2016-05-19 2016-05-19 Outpatient [facility] 5bl3t3s9-9i 6n6bp2z7-7 Access 00:00:00 00:00:00 H, PROVIDER e2-8xt0-07g tonya-4c 95-a Health 0-ur1jmo995 b3n-r6vx1a 0f4 0e2daa 2016-05-19 2016-05-19 Outpatient TIMA, [facility] 1jn8u6i5-3e fc5 7a50x-5 Access 00:00:00 00:00:00 OSMAN e2-7ty1-40v ad3-40d5-b Health 0-oi7kji637 bc9-a48b2d 0f4 10w190 2016-05-19 2016-05-19 Outpatient CONTRERAS, [facility] 9cm6d6u2-0u 8 wu475q1-9 Access 00:00:00 00:00:00 MIRTA e2-6cs1-03a 4w9-9738-d Health 0-vr6bai474 i22-g5c284 0f4 39beb0 2016-05-15 2016-05-15 Outpatient [facility] [id number] Access 00:00:00 00:00:00 H, PROVIDER Barry garcia 2016-05-15 2016-05-15 Outpatient [facility] 1ig2n0r8-5h z89kf07w-w Access 00:00:00 00:00:00 H, PROVIDER e2-8qg8-47p bbe-4f 60-b Health 0-oo3rfm584 941-41ae95 0f4 kx8536 2016-05-15 2016-05-15 Outpatient CONTRERAS, [facility] [id number]-40 f q3l6t37-0 Access 00:00:00 00:00:00 MIRTA 45-9a1t-w4l 8e7-8560-0 Health d-l3u906432 311-p4f399 354 835fae 2016-05-15 2016-05-15 Outpatient OMORI, [facility] [id number] 2b7 99k76-3 Access 00:00:00 00:00:00 NAIF 45-2i1y-h2x 373-4ac8- b Health d-s4u103181 1g6-i924xb 354 vf6028 2016-05-15 2016-05-15 Outpatient MENDIETA, [facility] [id number]-01 d3 6elyh0-3 Access 00:00:00 00:00:00 CHRISTINA 45-4f2w-o8r l17-3003- a Health d-i6j439310 bed-48329a 354 56a014 2016-05-15 2016-05-15 Outpatient IRIZARRY, [facility] [id number]-44 e10 [id number] Access 00:00:00 00:00:00 SUKUMAR 45-5l3g-o1y b2n-0f8z- a Health d-g5o174458 358-d132b6 354 e444e3 2016-05-11 2016-05-11 Outpatient [facility] [id number] Access 00:00:00 00:00:00 H, PROVIDER Barry garcia 2016-05-11 2016-05-11 Outpatient DIANE, [facility] [id number]-03 f 0nl0mjx-b Access 00:00:00 00:00:00 MIRTA 45-1b5m-y9s 36e-4988-b Health d[facility]t8n935043 [facility] 727e3d 2016-05-11 2016-05-11 Outpatient [facility] 8td2l0p7-4q 4d110b9o-6 Access 00:00:00 00:00:00 H, PROVIDER e2-5ey7-76q 986-4e 16-9 Health 0-iy1yay161 3q4-65a998 0f4 202386 0349-02-13 2016-05-11 Outpatient FOREIGN, [facility] [id number] Access 00:00:00 00:00:00 FRANKLIN 45-0j9k-v8i ee0-4498-a Health d-o7k826273 cb7-627bcc 354 62c67e 2016-05-08 2016-05-08 Outpatient [facility] [id number] Access 00:00:00 00:00:00 H, PROVIDER Barry garcia 2016-05-08 2016-05-08 Outpatient [facility] [id number] Access 00:00:00 00:00:00 H, PROVIDER e2-8rw2-81c e1f-48 2e-8 Health 0-wm6ejh832 2db-rzc743 0f4 bc16c2 2016-05-08 2016-05-08 Outpatient SHELBY, [facility] 0wd4x7o9-3l 18c [id number] Access 00:00:00 00:00:00 SAMANTHA e2-3js7-96v 27d-42df- a Health 0-nw2etl956 bb7-75171h 0f4 [id number] 2016-05-08 2016-05-08 Outpatient CONTRERAS, [facility] 4ew6n8m3-6a 3 [id number] Access 00:00:00 00:00:00 MIRTA e2-9db4-66u 353-45e9-a Health 0-up8rnq612 be5-l49379 0f4 8412be 2016-05-05 2016-05-05 Outpatient SHELBY, [facility] 9hs9b5z0-9p [id number] j4j2f-3 Access 00:00:00 00:00:00 SAMANTHA e2-3uh2-49p 09b-4a43- a Health 0-cj4fxt944 83f-02ffd4 0f4 8eed89 2016-05-04 2016-05-04 Outpatient [facility] [id number] Access 00:00:00 00:00:00 H, PROVIDER Barry garcia 2016-05-04 2016-05-04 Outpatient [facility] [id number] Access 00:00:00 00:00:00 H, PROVIDER e2-5lk7-13m 964-4e b0-8 Health 0-xl7sck226 fd5-e283fd 0f4 1cba2b 2016-05-04 2016-05-04 Outpatient SHELBY, [facility] 5vo1q0b9-1e c7e [id number] Access 00:00:00 00:00:00 SAMANTHA e2-0kb4-70x 677-4bd7- b Health 0-ys8zvs667 14f-f6fe70 0f4 99944g 2016-05-04 2016-05-04 Outpatient DIANE, [facility] 7fz4p3o9-2f d [id number] Access 00:00:00 00:00:00 MIRTA e2-1fe8-60f 294-4fb9-a Health 0-au7ate802 51f-f628b0 0f4 d9459r 2016-04-27 2016-04-27 Outpatient [facility] [id number] Access 00:00:00 00:00:00 H, PROVIDER Barry garcia 2016-04-27 2016-04-27 Outpatient [facility] [id number] Access 00:00:00 00:00:00 H, PROVIDER e2-2ns6-22v 0c7-4f f1-8 Health 0-we8mpp598 de9-3790eb 0f4 4239d8 2016-04-27 2016-04-27 Outpatient DIANE, [facility] 4pf9m0y6-4g 3 [id number] Access 00:00:00 00:00:00 MIRTA e2-6ns3-45n 4m1-5t25-j Health 0-pp2vno176 5i3-e32494 0f4 0g404d 2016-04-27 2016-04-27 Outpatient DESTINY, [facility] 7yt7o5v2-5e edf 0r8u4-z Access 00:00:00 00:00:00 MELVA e2-9gr0-14l 4fb-4099-9 Health 0-wo2aoy627 ca8-42b5cf 0f4 047ded 2016-04-24 2016-04-24 Outpatient [facility] [id number] Access 00:00:00 00:00:00 H, PROVIDER Barry garcia 2016-04-24 2016-04-24 Outpatient [facility] 6fq1y0c2-4q [id number]-y Access 00:00:00 00:00:00 H, PROVIDER e2-5to5-55i 5aa-41 ee-8 Health 0-hc1rcf177 bfc-x48095 0f4 n8718d 2016-04-24 2016-04-24 Outpatient FOREIGN, [facility] [id number] Access 00:00:00 00:00:00 FRANKLIN 45-1n8u-k7j 2x3-0a30-9 Health d-[id number] fee-3kn412 354 f7e46e 2016-04-24 2016-04-24 Outpatient ISAURA, [facility] [id number] Access 00:00:00 00:00:00 CHRISTINA 45-6c0l-v3h 287-4cce- 9 Health d-u0l479323 0o8-785j80 354 0c8ebc 2016-04-24 2016-04-24 Outpatient SHELBY, [facility] 5lj8z3e9-7u 978 [id number] Access 00:00:00 00:00:00 SAMANTHA e2-2pj3-77o 3ec-4aa4- 8 Health 0-mu1voh771 c18-20anr4 0f4 cfdb01 2016-04-24 2016-04-24 Outpatient DIANE, [facility] 5vw1j1g7-5r 3 [id number] Access 00:00:00 00:00:00 MIRTA e2-6dr9-17k 39f-490c-b Health 0-kk4gzv636 8ce-a94b3d 0f4 611fdf 2016-04-24 2016-04-24 Outpatient DIANE, [facility] [id number] Access 00:00:00 00:00:00 MIRTA 45-3a5j-l4t 86a-4439-a Health d-d3f057314 p7h-42s8xv 354 [id number] 2016-04-24 2016-04-24 Outpatient IRIZARRY, [facility] [id number] fc7 [id number] Access 00:00:00 00:00:00 KATELINE 45-2o8s-i0p d0t-9b82- a Health d-e4j759649 d2c-6yf299 354 9f3b30 2016-04-24 2016-04-24 Outpatient ZOE, [facility] [id number] d38 f6x47-4 Access 00:00:00 00:00:00 NAIF 45-7x9a-e5b 768-4bfb- b Health d-q5o824414 h0c-29a6l4 354 4dd6fd 2016-04-23 2016-04-23 Outpatient [facility] [id number] Access 00:00:00 00:00:00 H, PROVIDER Barry garcia 2016-04-23 2016-04-23 Outpatient [facility] 1yb4f0y2-9u [id number]-[id number] Access 00:00:00 00:00:00 H, PROVIDER april9hj2-97f be8-4b 21-9 Health 0-dl4vlm234 3dc-5f1e84 0f4 22d77d 2016-04-23 2016-04-23 Outpatient DIANE, [facility] [id number] Access 00:00:00 00:00:00 MIRTA 45-2k2s-b8z 994-45ef-b Health d-e8x995439 1t0-c5579c 354 51ffb4 2016-04-23 2016-04-23 Outpatient FOREIGN, [facility] [id number] Access 00:00:00 00:00:00 FRANKLIN 45-6t2c-l8e eaf-4e51-9 Health d-v5a431164 0q3-r0k928 354 [id number] 2016-04-20 2016-04-20 Outpatient [facility] [id number] Access 00:00:00 00:00:00 H, PROVIDER Barry garcia 2016-04-20 2016-04-20 Outpatient [facility] 0ej7l4o1-5j [id number] Access 00:00:00 00:00:00 H, PROVIDER april3nf0-66h a9b-45 15-9 Health 0-qe4ava011 [id number] 0f4 731040 4921-01-23 2016-04-20 Outpatient DESTINY, [facility] 2um8b8l2-5n [id number] [id number]-a Access 00:00:00 00:00:00 MELVA e2-4df5-33b 067-4720-a Health 0-bt7riq187 679-47bd8d 0f4 [id number] 2016-04-20 2016-04-20 Outpatient DIANE, [facility] 5yy6a1r8-1e 2 [id number]-f Access 00:00:00 00:00:00 MIRTA e2-4mx4-39r 373-4fb8-8 Health 0-bv9cie741 6t8-wy8324 0f4 3b9fb0 2016-04-17 2016-04-17 Outpatient [facility] [id number] Access 00:00:00 00:00:00 H, PROVIDER Barry garcia 2016-04-17 2016-04-17 Outpatient [facility] [id number] Access 00:00:00 00:00:00 H, PROVIDER april8lw3-74q 7cd-42 99-a Health 0-pi6nhu211 t71-q5u0s2 0f4 685c34 2016-04-07 2016-04-07 Outpatient [facility] [id number] Access 00:00:00 00:00:00 H, PROVIDER Brary garcia 2016-04-07 2016-04-07 Outpatient [facility] [id number] Access 00:00:00 00:00:00 H, PROVIDER e2-4wi0-73p f6e-4e 34-8 Health 0-se6dso777 026-e65fd2 0f4 3f7d68 2016-04-07 2016-04-07 Outpatient TIMA, [facility] [id number] w4e46-v Access 00:00:00 00:00:00 OSMAN 22-4926-a4f v5v-0ft6-a Health f-31994217s 89b-711bf4 alexander uq065p 2016-04-07 2016-04-07 Outpatient TIMA, [facility] 7og6l7e3-3h 515 ffab0-4 Access 00:00:00 00:00:00 OSMAN pierre-4ve3-16s 605-4ff2-a Health 0-mu6xoa165 18f-41s881 0f4 130b3b 2016-04-07 2016-04-07 Outpatient CONTRERAS, [facility] xri942xj-8z 8 [id number] Access 00:00:00 00:00:00 MIRTA 22-4926-a4f 57e-49df-a Health f-86087684o 23e-006f72 alexander 1s452r 2016-04-06 2016-04-06 Outpatient [facility] [id number] Access 00:00:00 00:00:00 H, PROVIDER Barry garcia 2016-04-06 2016-04-06 Outpatient [facility] 1oy0h3u9-6l [id number] Access 00:00:00 00:00:00 H, PROVIDER april9uo1-90l 933-4f 57-9 Health 0-xa1pfq067 cdf-f04f62 0f4 78b039 2016-04-06 2016-04-06 Outpatient TIMA, [facility] 3wa8o7r1-3w c72 [id number] Access 00:00:00 00:00:00 OSMAN pierre-9uq4-30o c9j-6s54-l Health 0-lq7rxb393 z80-27720c 0f4 ad40b7 2016-04-06 2016-04-06 Outpatient CONTRERAS, [facility] 1vc5c6m8-9w 3 qh191f5-a Access 00:00:00 00:00:00 MIRTA e2-9xo8-58e eb2-4dd6-b Health 0-jy5kul640 9fd-dc32d8 0f4 76l096 2016-03-26 2016-03-26 Outpatient [facility] [id number] Access 00:00:00 00:00:00 H, PROVIDER Barry garcia 2016-03-26 2016-03-26 Outpatient [facility] 6gl0f7n7-1c 7s07u1j3-b Access 00:00:00 00:00:00 H, PROVIDER april3jd4-72b f3d-41 a6-a Health 0-yy2qza935 ba9-6872c4 0f4 341811 9900-12-29 2016-03-26 Outpatient OMORI, [facility] nqm260wy-0x 8bc 7mpf5-8 Access 00:00:00 00:00:00 NAIF Bravo4926-a4f 598-4848- a Health f-26723677r 098-293a08 alexander js813k 2016-03-26 2016-03-26 Outpatient CONTRERAS, [facility] pzl904kl-7d 1 py98w9t-9 Access 00:00:00 00:00:00 MIRTA 22-4926-a4f 6ee-4ff7-b Health f-01508053f 583-72eac5 alexander 326a7e 2016-03-26 2016-03-26 Outpatient IRIZARRY, [facility] gfz967bb-3r 576 7c0ot-2 Access 00:00:00 00:00:00 SUKUMAR Barvo4926-a4f 1u5-6k38- 8 Health f-02475349t 9cc-6u2204 alexander 0b4fc0 2016-03-25 2016-03-25 Outpatient [facility] [id number] Access 00:00:00 00:00:00 H, PROVIDER Barry garcia 2016-03-25 2016-03-25 Outpatient [facility] 9ic1m8t9-7q [id number]-m Access 00:00:00 00:00:00 H, PROVIDER e2-8nv5-41n dd6-45 84-8 Health 0-ey4vij208 2x5-g22wct 0f4 sy131h 2016-03-25 2016-03-25 Outpatient TIMA, [facility] ccj506gv-2b 560 [id number] Access 00:00:00 00:00:00 OSMAN 22-4926-a4f 065-44df-b Health f-56221591v 819-2699d1 alexander 8f5a2f 2016-03-25 2016-03-25 Outpatient CONTRERAS, [facility] yrl421ke-8z 9 50vd7f0-n Access 00:00:00 00:00:00 MIRTA 22-4926-a4f d33-2m3h-8 Health f-[id number] 48f-8ad8b4 alexander b50eed 2016-03-06 2016-03-06 Outpatient [facility] [id number] Access 00:00:00 00:00:00 H, PROVIDER Barry garcia 2016-03-06 2016-03-06 Outpatient [facility] 4yu7b6t2-3f 3q1s90h0-7 Access 00:00:00 00:00:00 H, PROVIDER april4wm8-36w f9e-49 00-9 Health 0-kz1owy866 84c-3g1499 0f4 79g740 2016-03-06 2016-03-06 Outpatient MENDIETA, [facility] dny114xs-9s da 80fadd-2 Access 00:00:00 00:00:00 CHRISTINA 22-4926-a4f 7z5-3d2b- a Health f-84451057x u65-631y06 alexander 4c9b58 2016-03-06 2016-03-06 Outpatient CONTRERAS, [facility] zxq754gp-9c 3 1h0lgcc-w Access 00:00:00 00:00:00 MIRTA 22-4926-a4f 95d-4894-8 Health f-45156570q 41e-08a2d9 alexander 2085f3 2016-03-03 2016-03-03 Outpatient TIMA, [facility] dla703iq-3c 11d [id number] Access 00:00:00 00:00:00 OSMAN 22-4926-a4f 1fb-4f0a-a Health f-09418921x 780-82y260 alexander 2abc72 2016-02-28 2016-02-28 Outpatient [facility] [id number] Access 00:00:00 00:00:00 H, PROVIDER Barry garcia 2016-02-28 2016-02-28 Outpatient [facility] 9ut8u8c3-6z [id number] Access 00:00:00 00:00:00 H, PROVIDER april0xu6-34k 122-40 d1-a Health 0-ha9flc372 cd8-8e0dd4 0f4 c9ee35 2016-02-28 2016-02-28 Outpatient CONTRERAS, [facility] tmf897dy-8p 3 568yv9e-7 Access 00:00:00 00:00:00 MIRTA 22-4926-a4f af1-4c49-8 Health f-20541406z 251-7271d4 alexander 5a4e2f 2016-02-28 2016-02-28 Outpatient TIMA, [facility] kot730ky-2e 30e 5yne3-3 Access 00:00:00 00:00:00 OSMAN 22-4926-a4f ca3-4e7f-9 Health f-32052341w 5r1-x667x3 alexander 5fb9b9 2016-02-25 2016-02-25 Outpatient DESTINY, [facility] 0gh5q3g8-7z 882 e8cj7-v Access 00:00:00 00:00:00 MELVA e2-7bq8-48u 8v2-1jl6-3 Health 0-jn0hxi672 398-t74619 0f4 be84b6 2016-02-24 2016-02-24 Outpatient DESTINY, [facility] 8bo3w5l8-1i 970 6112d-8 Access 00:00:00 00:00:00 MELVA e2-1jv6-31c 522-4d0a-8 Health 0-ae4udk112 3ed-40eaf8 0f4 0f12d2 2016-02-18 2016-02-18 Outpatient [facility] [id number] Access 00:00:00 00:00:00 H, PROVIDER Barry garcia 2016-02-18 2016-02-18 Outpatient [facility] 4tl6q8e5-5x f3cz86dy-4 Access 00:00:00 00:00:00 H, PROVIDER e2-8sv4-14p 82f-43 1a-b Health 0-cz9dib282 c6p-61234k 0f4 5abef2 2016-02-18 2016-02-18 Outpatient DESTINY, [facility] 1iz6y6n5-3x 2fa 49b64-3 Access 00:00:00 00:00:00 MELVA e2-2ui5-58w u9o-7r6l-z Health 0-us4jdn757 279-b1d14b 0f4 e2f42d 2016-02-18 2016-02-18 Outpatient CONTRERAS, [facility] 2mt5h5t9-6w 8 [id number] Access 00:00:00 00:00:00 MIRTA e2-6ar4-61s 5u7-3585-i Health 0-yl2evq751 alexander-e606c4 0f4 149c44 2016-02-10 2016-02-10 Outpatient TIMA, [facility] 5fw8o8r1-0u 0be 1hez3-p Access 00:00:00 00:00:00 OSMAN e2-9vf6-56l 0eb-4eb1-a Health 0-vo2usi823 54f-977338 0f4 64ba33 2016-02-06 2016-02-06 Outpatient [facility] [id number] [address] [place] [address] 10:32:12 15:36:05 NAIMA alvarez of Medicin e 2016-01-30 2016-01-30 Outpatient TIMA, [facility] ugn517mm-4t 003 47i20-0 Access 00:00:00 00:00:00 OSMAN 22-4926-a4f p51-8u83-g Health f-78561416e 30e-776d1f alexander b29d1e 2016-01-28 2016-01-28 Outpatient [facility] [id number] Access 00:00:00 00:00:00 H, PROVIDER Barry garcia 2016-01-28 2016-01-28 Outpatient [facility] 8qo0s8c1-2q [id number] Access 00:00:00 00:00:00 H, PROVIDER e2-4ey4-54h d0d-4c 90-b Health 0-ci3qqy499 cac-7oh118 0f4 21fba1 2016-01-28 2016-01-28 Outpatient ZAGALA, [facility] 4au5u0t3-4t 2ec a58qb-1 Access 00:00:00 00:00:00 MELVA e2-8jn3-70a g17-3uv3-9 Health 0-vy0ibh786 6d6-m484pr 0f4 5909cc 2016-01-28 2016-01-28 Outpatient TIMA, [facility] 9ut9f4q6-1m af0 3a8o6-p Access 00:00:00 00:00:00 OSMAN e2-0lh1-11z 855-4c09-9 Health 0-hl9fpy578 1m9-vp4j79 0f4 dd65fd 2016-01-28 2016-01-28 Outpatient CONTRERAS, [facility] 8ko5j7n7-2p 2 [id number] Access 00:00:00 00:00:00 MIRTA gabby-3aw2-44q 2z1-4q64-8 Health 0-kt9hcw660 y87-e92i56 0f4 226cf1 2016-01-27 2016-01-27 Outpatient [facility] [id number] Access 00:00:00 00:00:00 H, PROVIDER Barry garcia 2016-01-27 2016-01-27 Outpatient [facility] 7vv6x8x8-9y 340x1hr4-2 Access 00:00:00 00:00:00 H, PROVIDER april3ik3-40d 6ce-4b 28-b Health 0-eq3eyd617 5e9-12d495 0f4 311f8d 2016-01-27 2016-01-27 Outpatient TIMA, [facility] mrx006gd-5e 169 b0i32-f Access 00:00:00 00:00:00 OSMAN 22-4926-a4f y27-70mi-b Health f-16135018j 6ce-623307 alexander 311d01 2016-01-21 2016-01-21 Outpatient [facility] [id number] Access 00:00:00 00:00:00 H, PROVIDER Barry garcia 2016-01-21 2016-01-21 Outpatient [facility] 5tc1n2x3-1k [id number] Access 00:00:00 00:00:00 H, PROVIDER gabby-9oa6-34v be4-45 98-a Health 0-wy4tbx948 79f-33e35e 0f4 b6a3ba 2016-01-21 2016-01-21 Outpatient HERNAEZ, [facility] xnx073zb-4z b0 ozh166-v Access 00:00:00 00:00:00 MAEVE Shelly4926-a4f 971-46ae-b Health f-52132016w 5db-ceb82a alexander 06ca45 2016-01-21 2016-01-21 Outpatient OMSTEFANI, [facility] xjw530pn-8d c83 o43j7-g Access 00:00:00 00:00:00 NAIF Bravo4926-a4f 4o9-4s9x- b Health f-64004413d 44d-88f26d alexander q8b156 2015-10-02 2015-10-02 Outpatient OMORI, [facility] cms210it-6a c00 513aa-5 Access 00:00:00 00:00:00 NAIF Bravo4926-a4f 809-4330- b Health f-03567888m 3m2-rhn185 alexander 9ebe0b 2015-10-01 2015-10-01 Outpatient [facility] [id number] Access 00:00:00 00:00:00 H, PROVIDER Barry garcia 2015-10-01 2015-10-01 Outpatient [facility] 4aj1j4r4-4l [id number] Access 00:00:00 00:00:00 H, PROVIDER e2-7ny7-20z ed0-46 e6-9 [facility] 0-xs2tzm555 57e-4efa05 0f4 vkh350 2015-10-01 2015-10-01 Outpatient OMORI, [facility] tuc008bf-5a 83d iw5v3-i Access 00:00:00 00:00:00 NAIF Sameer-4926-a4f 3l2-18v3- 9 Health f-26991337p d72-tb4988 alexander zd249e 2015-10-01 2015-10-01 Outpatient DIANE, [facility] sjn545ft-6p 4 htqb83l-2 Access 00:00:00 00:00:00 MIRTA Shelly4926-a4f 7b7-3cn7-g Health f-11991545c f31-0y18k5 alexander c704de 2015-09-26 2015-09-26 Outpatient [facility] [id number] Access 00:00:00 00:00:00 H, PROVIDER Brary garcia 2015-09-26 2015-09-26 Outpatient [facility] 7vj8c0z3-2w [id number] Access 00:00:00 00:00:00 H, PROVIDER valerie8nx7-46u 8ad-4b 20-9 Health 0-ue2lhx008 0v8-q43m2d 0f4 1f3c6d 2015-09-26 2015-09-26 Outpatient CONTRERAS, [facility] khi809jf-0m 6 8t6m2zc-4 Access 00:00:00 00:00:00 MIRTA 22-4926-a4f 121-4c1d-b Health f-22486231z w5i-1s7y50 alexander 99u730 2015-09-26 2015-09-26 Outpatient OMORI, [facility] nvb748wr-5w b24 2s846-5 Access 00:00:00 00:00:00 NAIF 22-4926-a4f 457-48de- a Health f-15213309s t95-d55d8a alexander 7s700s 2015-09-12 2015-09-12 Outpatient [facility] [id number] Access 00:00:00 00:00:00 H, PROVIDER Barry garcia 2015-09-12 2015-09-12 Outpatient [facility] 3tk5k3r2-1x [id number] Access 00:00:00 00:00:00 H, PROVIDER tatyana7th7-15s 126-41 a3-b Health 0-fd5mqs345 625-790110 0f4 48d9d2 2015-08-21 2015-08-21 Outpatient [facility] [id number] Access 00:00:00 00:00:00 H, PROVIDER Barry garcia 2015-08-21 2015-08-21 Outpatient [facility] 4tg6d9u7-3i [id number] Access 00:00:00 00:00:00 H, PROVIDER valerie1kp1-99y f2e-44 8f-b Health 0-ox8hbk298 x4q-23270m 0f4 e6de39 2015-05-22 2015-05-22 Outpatient [facility] [id number] Access 00:00:00 00:00:00 H, PROVIDER Barry garcia 2015-05-22 2015-05-22 Outpatient [facility] [id number] [id number] Access 00:00:00 00:00:00 H, PROVIDER valerie3pu6-79n 2c0-43 14-b Health 0-jx5xkl115 73a-o84406 0f4 1acb06 2015-05-21 2015-05-21 Outpatient [facility] [id number] Access 00:00:00 00:00:00 H, PROVIDER Barry garcia 2015-05-21 2015-05-21 Outpatient [facility] 7ab2j3w0-2i [id number] Access 00:00:00 00:00:00 H, PROVIDER april9ll4-93d 9f9-45 a3-8 Health 0-le6cig139 5bd-493e87 0f4 16l927 2015-05-03 2015-05-03 Outpatient JONAS, [facility] 5dp4k2w1-0p 56 [id number] Access 15:36:00 15:36:00 MAEVE gabby-2da7-42l g5w-1au7-e Health 0-kp3jon337 3j2-544lv9 0f4 278223 6537-02-05 2015-05-03 Outpatient [facility] [id number] Access 00:00:00 00:00:00 H, PROVIDER Barry garcia 2015-05-03 2015-05-03 Outpatient [facility] 6js6y5o7-9d [id number] Access 00:00:00 00:00:00 H, PROVIDER valerie4pa6-22w da3-40 14-8 Health 0-ig3sfe496 af9-0a6981 0f4 f3f5e9 2015-05-03 2015-05-03 Outpatient DIANE, [facility] 8pg0f4u1-9s 3 1do622j-8 Access 00:00:00 00:00:00 MIRTA pierre-2mm3-96v o15-24i4-5 Health 0-op3fwx281 t0s-3nd11j 0f4 e671aa 2015-03-20 2015-03-20 Outpatient [facility] [id number] Access 00:00:00 00:00:00 H, PROVIDER Barry garcia 2015-03-20 2015-03-20 Outpatient [facility] 3wd7y0r1-9h [id number] Access 00:00:00 00:00:00 H, PROVIDER tatyana3pm5-29o da0-41 96-8 Health 0-lx5nsl220 65e-54ee37 0f4 99a859 2015-03-15 2015-03-15 Outpatient [facility] [id number] Access 00:00:00 00:00:00 H, PROVIDER Barry garcia 2015-03-15 2015-03-15 Outpatient [facility] 9bd5q8c1-0k [id number] Access 00:00:00 00:00:00 H, PROVIDER tatyana7nr7-99d 7a2-4a a9-b Health 0-ov7vwu670 0u2-4x848e 0f4 4d45ed 2015-03-06 2015-03-06 Outpatient [facility] [id number] Access 00:00:00 00:00:00 H, PROVIDER Barry garcia 2015-03-06 2015-03-06 Outpatient [facility] 5kn6u2u5-9d [id number] Access 00:00:00 00:00:00 H, PROVIDER tatyana5bx8-22j fdb-4d 58-a Health 0-uo7ahz564 h4w-14lq38 0f4 [id number] 2015-02-19 2015-02-19 Outpatient [facility] [id number] Access 00:00:00 00:00:00 H, PROVIDER Barry garcia 2015-02-19 2015-02-19 Outpatient [facility] 6md1z8c4-7u [id number] Access 00:00:00 00:00:00 H, PROVIDER emeli 127-4b 58-a Health 0-ye0kkp760 7e3-u62ka2 0f4 e12e02 2015-02-18 2015-02-18 Outpatient [facility] [id number] Access 00:00:00 00:00:00 H, PROVIDER Barry garcia 2015-02-18 2015-02-18 Outpatient [facility] 8rx3l6n4-7o [id number] Access 00:00:00 00:00:00 H, PROVIDER april8yr0-73p d47-48 5c-8 Health 0-ff5kal215 5cb-5cface 0f4 c58e5d 2015-02-12 2015-02-12 Outpatient [facility] [id number] Access 00:00:00 00:00:00 H, PROVIDER Barry garcia 2015-02-12 2015-02-12 Outpatient [facility] 5if8a4v3-5w [id number] Access 00:00:00 00:00:00 H, PROVIDER april2et1-11n 279-4f 28-b Health 0-dw2swm491 ed6-28f39e 0f4 5fa5a5 2015-02-11 2015-02-11 Outpatient [facility] [id number] Access 00:00:00 00:00:00 H, PROVIDER Barry garcia 2015-02-11 2015-02-11 Outpatient [facility] 7hk7u8a9-3g [id number]-j Access 00:00:00 00:00:00 H, PROVIDER april1zh6-81l 925-41 78-b Health 0-ld2axb482 5f8-1p6707 0f4 559f90 2015-02-06 2015-02-06 Outpatient [facility] [id number] Access 00:00:00 00:00:00 H, PROVIDER Barry garcia 2015-02-06 2015-02-06 Outpatient [facility] 7xm4q5g6-8t [id number] Access 00:00:00 00:00:00 H, PROVIDER april8qa0-62i 2a8-49 15-a Health 0-oy1jne318 074-5lx905 0f4 e08d71 2015-01-24 2015-01-24 Outpatient [facility] [id number] Access 00:00:00 00:00:00 H, PROVIDER Barry garcia 2015-01-24 2015-01-24 Outpatient [facility] 8gu6e8l5-3n p31y3sf9-d Access 00:00:00 00:00:00 H, PROVIDER april7ky5-14e f80-44 d8-a Health 0-ig6hbt358 180-06780x 0f4 5c4c97 2015-01-08 2015-01-08 Outpatient [facility] [id number] Access 00:00:00 00:00:00 H, PROVIDER Barry garcia 2015-01-08 2015-01-08 Outpatient [facility] 7rp9q4a6-8x [id number] Access 00:00:00 00:00:00 H, PROVIDER valerie6pa4-17x 64f-4c a3-9 Health 0-ga8czi224 t28-57ya59 0f4 205da9 2015-01-01 2015-01-01 Outpatient [facility] [id number] Access 00:00:00 00:00:00 H, PROVIDER Barry garcia 2015-01-01 2015-01-01 Outpatient [facility] 8vy6y5w4-4k [id number] Access 00:00:00 00:00:00 H, PROVIDER valerie4he1-28c 53f-43 97-b Health 0-lq0vso579 db7-64f362 0f4 2f88f9 2014-12-27 2014-12-27 Outpatient [facility] [id number] Access 00:00:00 00:00:00 H, PROVIDER Barry garcia 2014-12-27 2014-12-27 Outpatient [facility] 2yq1w4c7-4u [id number] Access 00:00:00 00:00:00 H, PROVIDER april4db7-67i ca7-44 22-9 Health 0-zu5ouq206 2k0-2g0695 0f4 3eed3a 2014-12-07 2014-12-07 Outpatient [facility] [id number] Access 00:00:00 00:00:00 H, PROVIDER Barry garcia 2014-12-07 2014-12-07 Outpatient [facility] 3rm1x0y3-4k [id number] Access 00:00:00 00:00:00 H, PROVIDER valerie4ft2-71n c82-4a dd-a Health 0-gd9cbj373 6ab-de3ca6 0f4 8aee2f 2014-05-08 2014-05-08 Outpatient [facility] [id number] Access 00:00:00 00:00:00 H, PROVIDER Barry garcia 2014-05-08 2014-05-08 Outpatient [facility] 0li7e0a0-8a [id number] Access 00:00:00 00:00:00 H, PROVIDER tatyana2qp2-26a e34-45 36-8 Health 0-xn6bct029 537-378bc5 0f4 aa2e28 2014-04-26 2014-04-26 Outpatient [facility] [id number] Access 00:00:00 00:00:00 H, PROVIDER Barry gracia 2014-04-26 2014-04-26 Outpatient [facility] 4ii1r1c6-4p [id number] Access 00:00:00 00:00:00 H, PROVIDER tatyana4gf9-74q ed4-4c e6-b Health 0-oy1roi276 ef8-5a22de 0f4 4fecab 2014-04-25 2014-04-25 Outpatient [facility] [id number] Access 00:00:00 00:00:00 H, PROVIDER Barry garcia 2014-04-25 2014-04-25 Outpatient [facility] 6jk7t9j0-3n [id number] Access 00:00:00 00:00:00 H, PROVIDER attyana6km5-66z 477-46 7f-9 Health 0-ea3ugl764 66f-fe43c4 0f4 574f68 2014-04-09 2014-04-09 Outpatient [facility] [id number] Access 00:00:00 00:00:00 H, PROVIDER Barry garcia 2014-04-09 2014-04-09 Outpatient [facility] [id number] Access 00:00:00 00:00:00 H, PROVIDER [id number] Health [id number] 2014-03-12 2014-03-12 Outpatient [facility] [id number] Access 00:00:00 00:00:00 H, PROVIDER Barry garcia 2014-03-12 2014-03-12 [facility] [id number] Access 00:00:00 00:00:00 H, PROVIDER [id number] [facility] [id number] Results Test Description Test Time Test Comments [facility] 2021-05-05 COMPLETE 3 VIEWS 11:37:33 [facility] 1975 Sex: M EX AMINATION:XR FOOT LEFT COMPLETE 3 VIEWSCLINICAL INDICATION:Male, 45 years old with 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 No acute fracture or bony erosion is identified. Small posterior and plantar calcaneal bone spurs are present. Faint calcifications are identified in the dorsalis pedis artery.IMPRESSION: 1. Status post partial resection of the fifth metatarsal.2. No acute fracture or bone erosion is identified.Electronic ally signed by: Best Mendieta MD 05/05/2021 11:37 AM [facility] Panel Description: Albumin/Creatinine Ratio,Urine 2021-01-30 17:11:00 Test Item Value Reference Range Interpretation Comme nts Creatinine, Urine (test code 54.5 mg/dL Not Estab. = 2161-8) Albumin, Urine (test code = 2814.8 ug/mL Not Estab. Results confirmed 86356-4) ondilution.<br/ >
Perform ed by:
Constantine leon Kaur ()

Alb/Creat Ratio (test code = 5165 mg/gcreat 0-29 H 9318-7) Normal : 0 - 29 Moderately incr eased: 30 - 300 Sev erely increased: >300

Performed by:
[facility] ()

[facility] Description: Albumin/Creatinine Ratio,[id number] 17:11:00 Test Item Value Reference Range Interpretation Comments Creatinine, Urine 54.5 mg/dL Not Estab. (test code = 2161-8) Albumin, Urine 2814.8 ug/mL Not Estab. Results confi rmed (test code = ondilution.<br/ >
P [id number]) erformed by:
[facility] ()

Alb/Creat Ratio 5165 mg/gcreat 0-29 H (test code = Normal: 9318-7) 0 - 29 Moderately incr eased: 30 - 300 Severely increa sed: >300

Perfo rmed by:
[facility] ()

[facility] Description: Albumin/Creatinine Ratio,[id number] 17:11:00 Test Item Value Reference Range Interpretation Comments Creatinine, Urine 54.5 mg/dL Not Estab. (test code = 2161-8) Albumin, Urine 2814.8 ug/mL Not Estab. Results confi rmed (test code = ondilution.<br/ >
P 32450-5) erformed by:
[facility] ()

Alb/Creat Ratio 5165 mg/gcreat 0-29 H (test code = Normal: 9318-7) 0 - 29 Moderately incr eased: 30 - 300 Severely increa sed: >300

Perfo rmed by:
[facility] ([place])

[facility] Description: Albumin/Creatinine Ratio,[id number] 17:11:00 Test Item Value Reference Range Interpretation Comments Creatinine, Urine 54.5 mg/dL Not Estab. (test code = 2161-8) Albumin, Urine 2814.8 ug/mL Not Estab. Results confi rmed (test code = ondilution.<br/ >
P [id number]) erformed by:
[facility] ([place])

Alb/Creat Ratio 5165 mg/gcreat 0-29 H (test code = Normal: 9318-7) 0 - 29 Moderately incr eased: 30 - 300 Severely increa sed: >300

Perfo rmed by:
[facility] ([place])

[facility] Description: Albumin/Creatinine Ratio,[id number] 17:11:00 Test Item Value Reference Range Interpretation Comments Creatinine, Urine 54.5 mg/dL Not Estab. (test code = 2161-8) Albumin, Urine 2814.8 ug/mL Not Estab. Results confi rmed (test code = ondilution.<br/ >
P [id number]) erformed by:
[facility] ([place])

Alb/Creat Ratio 5165 mg/gcreat 0-29 H (test code = Normal: 9318-7) 0 - 29 Moderately incr eased: 30 - 300 Severely increa sed: >300

Perfo rmed by:
[facility] ([place])

[facility] Description: Albumin/Creatinine Ratio,[id number] 17:11:00 Test Item Value Reference Range Interpretation Comments Creatinine, Urine 54.5 mg/dL Not Estab. (test code = 2161-8) Albumin, Urine 2814.8 ug/mL Not Estab. Results confi rmed (test code = ondilution.<br/ >
P [id number]) erformed by:
[facility] ([place])

Alb/Creat Ratio 5165 mg/gcreat 0-29 H (test code = Normal: 9318-7) 0 - 29 Moderately incr eased: 30 - 300 Severely increa sed: >300

Perfo rmed by:
[facility] ([place])

[facility] Description: Albumin/Creatinine Ratio,[id number] 17:11:00 Test Item Value Reference Range Interpretation Comments Creatinine, Urine 54.5 mg/dL Not Estab. (test code = 2161-8) Albumin, Urine 2814.8 ug/mL Not Estab. Results confi rmed (test code = ondilution.<br/ >
P [id number]) [facility]:
[facility]

Alb/Creat Ratio 5165 mg/gcreat 0-29 H (test code = Normal: 9318-7) 0 - 29 Moderately incr eased: 30 - 300 Severely increa sed: >300

Perfo rmed by:
[facility] ([place])

[facility] Description: Albumin/Creatinine Ratio,[id number] 17:11:00 Test Item Value Reference Range Interpretation Comments Creatinine, Urine 54.5 mg/dL Not Estab. (test code = 2161-8) Albumin, Urine 2814.8 ug/mL Not Estab. Results confi rmed (test code = ondilution.<br/ >
P [id number]) erformed by:
[facility]

Alb/Creat Ratio 5165 mg/gcreat 0-29 H (test code = Normal: 9318-7) 0 - 29 Moderately incr eased: 30 - 300 Severely increa sed: >300

[facility]:
[facility]

[facility] Description: Albumin/Creatinine Ratio,[id number] 17:11:00 Test Item Value Reference Range Interpretation Comments Creatinine, Urine 54.5 mg/dL Not Estab. (test code = 2161-8) Albumin, Urine 2814.8 ug/mL Not Estab. Results confi rmed (test code = ondilution.<br/ >
P 41926-6) erformed by:
[facility] [place] ([place])

Alb/Creat Ratio 5165 mg/gcreat 0-29 H (test code = Normal: 9318-7) 0 - 29 Moderately incr eased: 30 - 300 Severely increa sed: >300

Perfo rmed by:
Nh OQVestir [place] ([place])

[facility] Description: Albumin/Creatinine Ratio,[id number] 17:11:00 Test Item Value Reference Range Interpretation Comments Creatinine, Urine 54.5 mg/dL Not Estab. (test code = 2161-8) Albumin, Urine 2814.8 ug/mL Not Estab. Results confi rmed (test code = ondilution.<br/ >
P 02980-9) erformed by:
[facility] [place] ([place])

Alb/Creat Ratio 5165 mg/gcreat 0-29 H (test code = Normal: 9318-7) 0 - 29 Moderately incr eased: 30 - 300 Severely increa sed: >300

Perfo rmed by:
[facility] ([place]

[facility] Description: Albumin/Creatinine Ratio,[id number] 17:11:00 Test Item Value Reference Range Interpretation Comments Creatinine, Urine 54.5 mg/dL Not Estab. (test code = 2161-8) Albumin, Urine 2814.8 ug/mL Not Estab. Results confi rmed (test code = ondilution.<br/ >
P 45070-2) erformed by:
[facility] ()

Alb/Creat Ratio 5165 mg/gcreat 0-29 H (test code = Normal: 9318-7) 0 - 29 Moderately incr eased: 30 - 300 Severely increa sed: >300

Perfo rmed by:
[facility]on [place] ([place])

[facility] Description: Albumin/Creatinine Ratio,[id number] 17:11:00 Test Item Value Reference Range Interpretation Comments Creatinine, Urine 54.5 mg/dL Not Estab. (test code = 2161-8) Albumin, Urine 2814.8 ug/mL Not Estab. Results confi rmed (test code = ondilution.<br/ >
P 65658-8) erformed by:
[facility] [place] ([place])

Alb/Creat Ratio 5165 mg/gcreat 0-29 H (test code = Normal: 9318-7) 0 - 29 Moderately incr eased: 30 - 300 Severely increa sed: >300

Perfo rmed by:
[facility] [place] ([place])

[facility] Description: Natriuretic peptide B [Mass/volume] in Serum or [id number] 13:36:00 Test Item Value Reference Range Interpretation Comments B-Type Natriuretic Peptide (test 396.8 pg/mL 0.0-100.0 H code = 99827-6) [facility] Description: Natriuretic peptide B [Mass/volume] in Serum or [id number] 13:36:00 Test Item Value Reference Range Interpretation Comments B-Type Natriuretic Peptide (test 396.8 pg/mL 0.0-100.0 H code = 54491-4) [facility] Description: Natriuretic peptide B [Mass/volume] in Serum or [id number] 13:36:00 Test Item Value Reference Range Interpretation Comments B-Type Natriuretic Peptide (test 396.8 pg/mL 0.0-100.0 H code = 27722-5) [facility] Description: Natriuretic peptide B [Mass/volume] in Serum or [id number] 13:36:00 Test Item Value Reference Range Interpretation Comments B-Type Natriuretic Peptide (test 396.8 pg/mL 0.0-100.0 H code = 97145-8) [facility] Description: Natriuretic peptide B [Mass/volume] in Serum or [id number] 13:36:00 Test Item Value Reference Range Interpretation Comments B-Type Natriuretic Peptide (test 396.8 pg/mL 0.0-100.0 H code = 50509-0) [facility] Description: Natriuretic peptide B [Mass/volume] in Serum or [id number] 13:36:00 Test Item Value Reference Range Interpretation Comments B-Type Natriuretic Peptide (test 396.8 pg/mL 0.0-100.0 H code = 52965-8) [facility] Description: Natriuretic peptide B [Mass/volume] in Serum or [id number] 13:36:00 Test Item Value Reference Range Interpretation Comments B-Type Natriuretic Peptide (test 396.8 pg/mL 0.0-100.0 H code = 34327-5) [facility] Description: Natriuretic peptide B [Mass/volume] in Serum or [id number] 13:36:00 Test Item Value Reference Range Interpretation Comments B-Type Natriuretic Peptide (test 396.8 pg/mL 0.0-100.0 H code = 69922-6) [facility] Description: Natriuretic peptide B [Mass/volume] in Serum or [id number] 13:36:00 Test Item Value Reference Range Interpretation Comments B-Type Natriuretic Peptide (test 396.8 pg/mL 0.0-100.0 H code = 45651-2) [facility] Description: Natriuretic peptide B [Mass/volume] in Serum or [id number] 13:36:00 Test Item Value Reference Range Interpretation Comments B-Type Natriuretic Peptide (test 396.8 pg/mL 0.0-100.0 H code = 61161-3) [facility] Description: Natriuretic peptide B [Mass/volume] in Serum or [id number] 13:36:00 Test Item Value Reference Range Interpretation Comments B-Type Natriuretic Peptide (test 396.8 pg/mL 0.0-100.0 H code = 19701-6) [facility] Description: Natriuretic peptide B [Mass/volume] in Serum or [id number] 13:36:00 Test Item Value Reference Range Interpretation Comments B-Type Natriuretic Peptide (test 396.8 pg/mL 0.0-100.0 H code = 74993-7) [facility] Description: Hemoglobin A1c/Hemoglobin.total in Blood 2021-01-30 12:27:00 Test Item Value Reference Range Interpretation Comments Hemoglobin A1c (test code 8.7 % 4.8-5.6 H = 4548-4) . Prediabetes: 5. 7 - 6.4 Diabetes : >6.4 Glycemic control for adults with diabetes: <7.0

P erformed by:
[facility] ([place])

[facility] Description: Hemoglobin A1c/Hemoglobin.total in Blood 2021-01-30 12:27:00 Test Item Value Reference Range Interpretation Comments Hemoglobin A1c (test code 8.7 % 4.8-5.6 H = 4548-4) . Prediabetes: 5. 7 - 6.4 Diabetes : >6.4 Glycemic control for adults with diabetes: <7.0

P erformed by:
[facility] ([place])

[facility] Description: Hemoglobin A1c/Hemoglobin.total in Blood 2021-01-30 12:27:00 Test Item Value Reference Range Interpretation Comments Hemoglobin A1c (test code 8.7 % 4.8-5.6 H = 4548-4) . Prediabetes: 5. 7 - 6.4 Diabetes : >6.4 Glycemic control for adults with diabetes: <7.0

P erformed by:
[facility] ([place])

[facility] Description: Hemoglobin A1c/Hemoglobin.total in Blood 2021-01-30 12:27:00 Test Item Value Reference Range Interpretation Comments Hemoglobin A1c (test code 8.7 % 4.8-5.6 H = 4548-4) . Prediabetes: 5. 7 - 6.4 Diabetes : >6.4 Glycemic control for adults with diabetes: <7.0

P erformed by:
[facility] [place] ([place])

[facility] Description: Hemoglobin A1c/Hemoglobin.total in Blood 2021-01-30 12:27:00 Test Item Value Reference Range Interpretation Comments Hemoglobin A1c (test code 8.7 % 4.8-5.6 H = 4548-4) . Prediabetes: 5. 7 - 6.4 Diabetes : >6.4 Glycemic control for adults with diabetes: <7.0

P erformed by:
[facility] [place] ()

[facility] Description: Hemoglobin A1c/Hemoglobin.total in Blood 2021-01-30 12:27:00 Test Item Value Reference Range Interpretation Comments Hemoglobin A1c (test code 8.7 % 4.8-5.6 H = 4548-4) . Prediabetes: 5. 7 - 6.4 Diabetes : >6.4 Glycemic control for adults with diabetes: <7.0

P erformed by:
[facility] [place] ()

[facility] Description: Hemoglobin A1c/Hemoglobin.total in Blood 2021-01-30 12:27:00 Test Item Value Reference Range Interpretation Comments Hemoglobin A1c (test code 8.7 % 4.8-5.6 H = 4548-4) . Prediabetes: 5. 7 - 6.4 Diabetes : >6.4 Glycemic control for adults with diabetes: <7.0

P erformed by:
[facility] [place] ()

[facility] Description: Hemoglobin A1c/Hemoglobin.total in Blood 2021-01-30 12:27:00 Test Item Value Reference Range Interpretation Comments Hemoglobin A1c (test code 8.7 % 4.8-5.6 H = 4548-4) . Prediabetes: 5. 7 - 6.4 Diabetes : >6.4 Glycemic control for adults with diabetes: <7.0

P erformed by:
[facility] [place] ()

[facility] Description: Hemoglobin A1c/Hemoglobin.total in Blood 2021-01-30 12:27:00 Test Item Value Reference Range Interpretation Comments Hemoglobin A1c (test code 8.7 % 4.8-5.6 H = 4548-4) . Prediabetes: 5. 7 - 6.4 Diabetes : >6.4 Glycemic control for adults with diabetes: <7.0

P erformed by:
[facility] [place] ()

[facility] Description: Hemoglobin A1c/Hemoglobin.total in Blood 2021-01-30 12:27:00 Test Item Value Reference Range Interpretation Comments Hemoglobin A1c (test code 8.7 % 4.8-5.6 H = 4548-4) . Prediabetes: 5. 7 - 6.4 Diabetes : >6.4 Glycemic control for adults with diabetes: <7.0

P erformed by:
[facility] [place] ()

[facility] Description: Hemoglobin A1c/Hemoglobin.total in Blood 2021-01-30 12:27:00 Test Item Value Reference Range Interpretation Comments Hemoglobin A1c (test code 8.7 % 4.8-5.6 H = 4548-4) . Prediabetes: 5. 7 - 6.4 Diabetes : >6.4 Glycemic control for adults with diabetes: <7.0

P erformed by:
[facility] [place] ()

[facility] Description: Hemoglobin A1c/Hemoglobin.total in Blood 2021-01-30 12:27:00 Test Item Value Reference Range Interpretation Comments Hemoglobin A1c (test code 8.7 % 4.8-5.6 H = 4548-4) . Prediabetes: 5. 7 - 6.4 Diabetes : >6.4 Glycemic control for adults with diabetes: <7.0

P erformed by:
[facility] [place] ()

[facility] Description: C reactive protein [Mass/volume] in Serum or [id number] 04:53:00 Test Item Value Reference Range Interpretation Comments C-Reactive Protein, Quant (test code 13 mg/L 0-10 H = 1987-) [facility] Description: C reactive protein [Mass/volume] in Serum or [id number] 04:53:00 Test Item Value Reference Range Interpretation Comments C-Reactive Protein, Quant (test code 13 mg/L 0-10 H = 1987-07) [facility] Description: C reactive protein [Mass/volume] in Serum or [id number] 04:53:00 Test Item Value Reference Range Interpretation Comments C-Reactive Protein, Quant (test code 13 mg/L 0-10 H = 1987-07) [facility] Description: C reactive protein [Mass/volume] in Serum or [id number] 04:53:00 Test Item Value Reference Range Interpretation Comments C-Reactive Protein, Quant (test code 13 mg/L 0-10 H = 1987-07) [facility] Description: C reactive protein [Mass/volume] in Serum or [id number] 04:53:00 Test Item Value Reference Range Interpretation Comments C-Reactive Protein, Quant (test code 13 mg/L 0-10 H = 1987-07) [facility] Description: C reactive protein [Mass/volume] in Serum or [id number] 04:53:00 Test Item Value Reference Range Interpretation Comments C-Reactive Protein, Quant (test code 13 mg/L 0-10 H = 1987-07) [facility] Description: C reactive protein [Mass/volume] in Serum or [id number] 04:53:00 Test Item Value Reference Range Interpretation Comments C-Reactive Protein, Quant (test code 13 mg/L 0-10 H = 1987-07) [facility] Description: C reactive protein [Mass/volume] in Serum or [id number] 04:53:00 Test Item Value Reference Range Interpretation Comments C-Reactive Protein, Quant (test code 13 mg/L 0-10 H = 1987-07) [facility] Description: C reactive protein [Mass/volume] in Serum or [id number] 04:53:00 Test Item Value Reference Range Interpretation Comments C-Reactive Protein, Quant (test code 13 mg/L 0-10 H = 1987-07) [facility] Description: C reactive protein [Mass/volume] in Serum or [id number] 04:53:00 Test Item Value Reference Range Interpretation Comments C-Reactive Protein, Quant (test code 13 mg/L 0-10 H = 1987-07) [facility] Description: C reactive protein [Mass/volume] in Serum or [id number] 04:53:00 Test Item Value Reference Range Interpretation Comments C-Reactive Protein, Quant (test code 13 mg/L 0-10 H = 1987-07) [facility] Description: C reactive protein [Mass/volume] in Serum or [id number] 04:53:00 Test Item Value Reference Range Interpretation Comments C-Reactive Protein, Quant (test code 13 mg/L 0-10 H = 1987-07) [facility] Description: 25-hydroxyvitamin D3 [Mass/volume] in Serum or [id number] 03:48:00 Test Item Value Reference Range Interpretation Comments Vitamin D, 17.6 ng/mL 30.0-100.0 L Vitamin D defic iency has 25-Hydroxy (test been define d by the code = 48777-4) [employer] [facility] So [facility] practice guidel ine as alevel of serum 25-OH vitamin D less than 20 ng/mL (1,2).The Endocrine Society went on to further define vitamin Dinsufficiency as a level between 21 and 29 ng/mL (2).1. IOM (Ins titute of Medicine). 2010 . Dietary reference int akes for calcium and D. [place]: [employer] .2. Dileep MF, Ela NC, Stephane blake EMERSON, et al. Evaluatio n, treatment, and prevention of vitamin D deficiency: an Endocrine Society clinica l practice guideline. [place] EM. 2010; 96(7):1911-30.< br/>
P erformed by:
[facility] [place] ()

[facility] Description: 25-hydroxyvitamin D3 [Mass/volume] in Serum or [id number] 03:48:00 Test Item Value Reference Range Interpretation Comments Vitamin D, 17.6 ng/mL 30.0-100.0 L Vitamin D defic iency has 25-Hydroxy (test been define d by the code = 88383-7) [employer] [facility] So [facility] practice guidel ine as alevel of serum 25-OH vitamin D less than 20 ng/mL (1,2).The Endocrine Society went on to further define vitamin Dinsufficiency as a level between 21 and 29 ng/mL (2).1. IOM (Ins titute of Medicine). 2010 . Dietary reference int akes for calcium and D. [facility]: [employer] .2. Ela Oliveros, Stephane EMERSON, et al. Evaluatio n, treatment, and prevention of vitamin D deficiency: an Endocrine Society clinica l practice guideline. [place] EM. 2010; 96(7):1911-30.< br/>
P erformed by:
[facility] ([place])

[facility] Description: 25-hydroxyvitamin D3 [Mass/volume] in Serum or [id number] 03:48:00 Test Item Value Reference Range Interpretation Comments Vitamin D, 17.6 ng/mL 30.0-100.0 L Vitamin D defic iency has 25-Hydroxy (test been define d by the code = 66226-9) [employer] [facility] So [facility] practice guidel ine as alevel of serum 25-OH vitamin D less than 20 ng/mL (1,2).The Endocrine Society went on to further define vitamin Dinsufficiency as a level between 21 and 29 ng/mL (2).1. IOM (Ins titute of Medicine). 2010 . Dietary reference int akes for calcium and D. [place]: [employer] .2. Ela Oliveros, Stephane EMERSON, et al. Evaluatio n, treatment, and prevention of vitamin D deficiency: an Endocrine Society clinica l practice guideline. [place] EM. 2010; 96(7):1911-30.< br/>
P erformed by:
[facility] ([place])

[facility] Description: 25-hydroxyvitamin D3 [Mass/volume] in Serum or [id number] 03:48:00 Test Item Value Reference Range Interpretation Comments Vitamin D, 17.6 ng/mL 30.0-100.0 L Vitamin D defic iency has 25-Hydroxy (test been define d by the code = 07689-3) [employer]ocrine So ciety practice guidel ine as alevel of serum 25-OH vitamin D less than 20 ng/mL (1,2).The Endocrine Society went on to further define vitamin Dinsufficiency as a level between 21 and 29 ng/mL (2).1. IOM (Ins titute of Medicine). 2010 . Dietary reference int akes for calcium and D. [facility]: [employer] .2. Ela Oliveros, Stephane EMERSON, et al. Evaluatio n, treatment, and prevention of vitamin D deficiency: an Endocrine Society clinica l practice guideline. EM. 2010; 96(7):191-.< br/>
P erformed by:
[facility] ([place])

[facility] [employer] Description: 25-hydroxyvitamin D3 [Mass/volume] in Serum or [id number] 03:48:00 Test Item Value Reference Range Interpretation Comments Vitamin D, 17.6 ng/mL 30.0-100.0 L Vitamin D defic iency has 25-Hydroxy (test been define d by the code = 56259-0) [employer] [facility] So [facility] practice guidel ine as alevel of serum 25-OH vitamin D less than 20 ng/mL (1,2).The Endocrine Society went on to further define vitamin Dinsufficiency as a level between 21 and 29 ng/mL (2).1. IOM (Ins titute of Medicine). 2010 . Dietary reference int akes for calcium and D. [facility]: [employer] .2. Ela Oliveros, Stephane EMERSON, et al. Evaluatio n, treatment, and prevention of vitamin D deficiency: an Endocrine Society clinica l practice guideline. EM. 2010; 96(7):191-.< br/>
P erformed by:
[facility] ([place])

[facility] [employer] Description: 25-hydroxyvitamin D3 [Mass/volume] in Serum or [id number] 03:48:00 Test Item Value Reference Range Interpretation Comments Vitamin D, 17.6 ng/mL 30.0-100.0 L Vitamin D defic iency has 25-Hydroxy (test been define d by the code = 52213-0) [employer] [facility] So [facility] practice guidel ine as alevel of serum 25-OH vitamin D less than 20 ng/mL (1,2).The Endocrine Society went on to further define vitamin Dinsufficiency as a level between 21 and 29 ng/mL (2).1. IOM (Ins titute of Medicine). 2010 . Dietary reference int akes for calcium and D. [place]: [employer] .2. Ela Oliveros, Stephane EMERSON, et al. Evaluatio n, treatment, and prevention of vitamin D deficiency: an Endocrine Society clinica l practice guideline. EM. 2010; 96(7):1911-30.< br/>
P erformed by:
[facility] ([place])

[facility] Description: 25-hydroxyvitamin D3 [Mass/volume] in Serum or [id number] 03:48:00 Test Item Value Reference Range Interpretation Comments Vitamin D, 17.6 ng/mL 30.0-100.0 L Vitamin D defic iency has 25-Hydroxy (test been define d by the code = 82685-9) [employer] [facility] So [facility] practice guidel ine as alevel of serum 25-OH vitamin D less than 20 ng/mL (1,2).The Endocrine Society went on to further define vitamin Dinsufficiency as a level between 21 and 29 ng/mL (2).1. IOM (Ins titute of Medicine). 2010 . Dietary reference int akes for calcium and D. [place]: [employer] .2. Ela Oliveros, Stephane EMERSON, et al. Evaluatio n, treatment, and prevention of vitamin D deficiency: an Endocrine Society clinica l practice guideline. EM. 2010; 96(7):1911-30.< br/>
P erformed by:
[facility] ([place])

[facility] Description: 25-hydroxyvitamin D3 [Mass/volume] in Serum or [id number] 03:48:00 Test Item Value Reference Range Interpretation Comments Vitamin D, 17.6 ng/mL 30.0-100.0 L Vitamin D defic iency has 25-Hydroxy (test been define d by the code = 54102-7) [employer] [facility] So [facility] practice guidel ine as alevel of serum 25-OH vitamin D less than 20 ng/mL (1,2).The Endocrine Society went on to further define vitamin Dinsufficiency as a level between 21 and 29 ng/mL (2).1. IOM (Ins titute of Medicine). 2010 . Dietary reference int akes for calcium and D. [place]: [employer] .2. Ela Oliveros, Stephane EMERSON, et al. Evaluatio n, treatment, and prevention of vitamin D deficiency: an Endocrine Society clinica l practice guideline. [place] EM. 2010; 96(9):1911-30.< br/>
P erformed by:
[facility] [place] ([place])

[facility] Description: 25-hydroxyvitamin D3 [Mass/volume] in Serum or [id number] 03:48:00 Test Item Value Reference Range Interpretation Comments Vitamin D, 17.6 ng/mL 30.0-100.0 L Vitamin D defic iency has 25-Hydroxy (test been define d by the code = 15705-3) [employer] [facility] So [facility] practice guidel ine as alevel of serum 25-OH vitamin D less than 20 ng/mL (1,2).The Endocrine Society went on to further define vitamin Dinsufficiency as a level between 21 and 29 ng/mL (2).1. IOM (Ins titute of Medicine). 2010 . Dietary reference int akes for calcium and D. [place]: [employer] .2. Ela Oliveros, Stephane EMERSON, et al. Evaluatio n, treatment, and prevention of vitamin D deficiency: an Endocrine Society clinica l practice guideline. EM. 2010; 96(7):1911-30.< br/>
P erformed by:
[facility] ([place])

[facility] Description: 25-hydroxyvitamin D3 [Mass/volume] in Serum or [id number] 03:48:00 Test Item Value Reference Range Interpretation Comments Vitamin D, 17.6 ng/mL 30.0-100.0 L Vitamin D defic iency has 25-Hydroxy (test been define d by the code = 25292-3) [employer] [facility]ocrine So [facility] practice guidel ine as alevel of serum 25-OH vitamin D less than 20 ng/mL (1,2).The Endocrine Society went on to further define vitamin Dinsufficiency as a level between 21 and 29 ng/mL (2).1. IOM (Ins titute of Medicine). 2010 . Dietary reference int akes for calcium and D. [place]: [employer] .2. Dileep AREVALO, Ela SANTA, Stephane blake EMERSON, et al. Evaluatio n, treatment, and prevention of vitamin D deficiency: an Endocrine Society clinica l practice guideline. EM. 2010; 96(7):1911-30.< br/>
P erformed by:
[facility] ([place])

[facility] Description: 25-hydroxyvitamin D3 [Mass/volume] in Serum or [id number] 03:48:00 Test Item Value Reference Range Interpretation Comments Vitamin D, 17.6 ng/mL 30.0-100.0 L Vitamin D defic iency has 25-Hydroxy (test been define d by the code = 66016-4) [employer] [facility] So [facility] practice guidel ine as alevel of serum 25-OH vitamin D less than 20 ng/mL (1,2).The Endocrine Society went on to further define vitamin Dinsufficiency as a level between 21 and 29 ng/mL (2).1. IOM (Ins titute of Medicine). 2010 . Dietary reference int akes for calcium and D. [place]: [employer] .2. Ela Oliveros, Stephane EMERSON, et al. Evaluatio n, treatment, and prevention of vitamin D deficiency: an Endocrine Society clinica l practice guideline. EM. 2010; 96(7):1911-30.< br/>
P erformed by:
[facility] ([place])

[facility] Description: 25-hydroxyvitamin D3 [Mass/volume] in Serum or [id number] 03:48:00 Test Item Value Reference Range Interpretation Comments Vitamin D, 17.6 ng/mL 30.0-100.0 L Vitamin D defic iency has 25-Hydroxy (test been define d by the code = 34420-6) [employer] [facility]ocrine So ety practice guidel ine as alevel of serum 25-OH vitamin D less than 20 ng/mL (1,2).The Endocrine Society went on to further define vitamin Dinsufficiency as a level between 21 and 29 ng/mL (2).1. IOM (Ins titute of Medicine). 2010 . Dietary reference int akes for calcium and D. [place]: [employer] .2. Dileep AREVALO, Ela SANTA, Stephane EMERSON, et al. Evaluatio n, treatment, and prevention of vitamin D deficiency: an Endocrine Society clinica l practice guideline. EM. 2010; 96(7):1911-30.< br/>
P erformed by:
[facility] ([place])

[facility] Description: Erythrocyte sedimentation rate by Westergren [id number] 03:06:00 Test Item Value Reference Range Interpretation Comments Sedimentation Rate-Westergren (test 27 mm/hr 0-15 H code = 4537-7) [facility] Description: Erythrocyte sedimentation rate by Westergren [id number] 03:06:00 Test Item Value Reference Range Interpretation Comments Sedimentation Rate-Westergren (test 27 mm/hr 0-15 H code = 4537-7) [facility] Description: Erythrocyte sedimentation rate by Westergren [id number] 03:06:00 Test Item Value Reference Range Interpretation Comments Sedimentation Rate-Westergren (test 27 mm/hr 0-15 H code = 4537-7) [facility] Description: Erythrocyte sedimentation rate by Westergren [id number] 03:06:00 Test Item Value Reference Range Interpretation Comments Sedimentation Rate-Westergren (test 27 mm/hr 0-15 H code = 4537-7) [facility] Description: Erythrocyte sedimentation rate by Westergren [id number] 03:06:00 Test Item Value Reference Range Interpretation Comments Sedimentation Rate-Westergren (test 27 mm/hr 0-15 H code = 4537-7) [facility] Description: Erythrocyte sedimentation rate by Westergren [id number] 03:06:00 Test Item Value Reference Range Interpretation Comments Sedimentation Rate-Westergren (test 27 mm/hr 0-15 H code = 4537-7) [facility] Description: Erythrocyte sedimentation rate by Westergren [id number] 03:06:00 Test Item Value Reference Range Interpretation Comments Sedimentation Rate-Westergren (test 27 mm/hr 0-15 H code = 4537-7) [facility] Description: Erythrocyte sedimentation rate by Westergren [id number] 03:06:00 Test Item Value Reference Range Interpretation Comments Sedimentation Rate-Westergren (test 27 mm/hr 0-15 H code = 4537-7) [facility] Description: Erythrocyte sedimentation rate by Westergren [id number] 03:06:00 Test Item Value Reference Range Interpretation Comments Sedimentation Rate-Westergren (test 27 mm/hr 0-15 H code = 4537-7) [facility] Description: Erythrocyte sedimentation rate by Westergren [id number] 03:06:00 Test Item Value Reference Range Interpretation Comments Sedimentation Rate-Westergren (test 27 mm/hr 0-15 H code = 4537-7) [facility] Description: Erythrocyte sedimentation rate by Westergren [id number] 03:06:00 Test Item Value Reference Range Interpretation Comments Sedimentation Rate-Westergren (test 27 mm/hr 0-15 H code = 4537-7) [facility] Description: Erythrocyte sedimentation rate by Westergren [id number] 03:06:00 Test Item Value Reference Range Interpretation Comments Sedimentation Rate-Westergren (test 27 mm/hr 0-15 H code = 4537-7) [facility] Description: Comp. Metabolic Panel (14)2021-01-30 02:57:00 Test Item Value Reference Range Interpretation Comments Glucose (test code 256 mg/dL 65-99 H = 2345-7) BUN (test code = 57 mg/dL 6-24 H 3094-0) Creatinine (test 2.38 mg/dL 0.76-1.27 H code = 2160-0) eGFR If NonAfricn 31 >59 L Am (test code = mL/min/1.73 11697-2) eGFR If Africn Am 36 >59 L In accor dance with (test code = mL/min/1.73 recommendations from 99797-6) the NKF-ASN Tas k force, [facility] is in the process of updating its eG FR calculation to the 2020 CKD-EPI creatinine equa tion that estimates kidney function witho ut a race variable.
< br/>Per formed by:
[facility] ([place])

BUN/Creatinine 24 9-20 H Ratio (test code = 3097-3) Sodium (test code = 139 mmol/L 413-767 5742-2) Potassium (test 4.9 mmol/L 3.5-5.2 code = 2823-3) Chloride (test code 100 mmol/L 96-106 = 2075-0) Carbon Dioxide, 23 mmol/L 20-29 Total (test code = 2027-) Calcium (test code 9.0 mg/dL 8.7-10.2 = 15264-0) Protein, Total 6.5 g/dL 6.0-8.5 (test code = 2885-2) Albumin (test code 3.4 g/dL 4.0-5.0 L = 1751-7) Globulin, Total 3.1 g/dL 1.5-4.5 (test code = 20103-8) A/G Ratio (test 1.1 1.2-2.2 L code = 1759-0) Bilirubin, Total 0.4 mg/dL 0.0-1.2 (test code = 1974-2) Alkaline 124 IU/L 44-121 H Phosphatase (test Pl ease note code = 6768-6) reference int erval change
<b r/>Perf ormed by:
[facility] ([place])

AST (SGOT) (test 17 IU/L 0-40 code = 1920-8) ALT (SGPT) (test 23 IU/L 0-44 code = 1742-6) [facility]: Phosphate [Mass/volume] in Serum or Plasma 2021-01-30 02:57:00 Test Item Value Reference Range Interpretation Comments Phosphorus (test code = 2777-1) 4.5 mg/dL 2.8-4.1 H [facility]: Magnesium [Mass/volume] in Serum or Plasma 2021-01-30 02:57:00 Test Item Value Reference Range Interpretation Comments Magnesium (test code = 40978-3) 1.8 mg/dL 1.6-2.3 [facility] Description: Microscopic Sxhabqpzaol9731-70-51 02:57:00 Test Item Value Reference Range Interpretation Comments WBC (test code = 5821-4) None seen 0-5 RBC (test code = 66217-8) None seen 0-2 Epithelial Cells (non renal) (test None seen 0-10 code = 5787-7) Epithelial Cells (renal) (test code = 06890-3) Casts (test code = 30454-3) None seen None seen Cast Type (test code = 78929-1) Crystals (test code = 5783-6) Crystal Type (test code = 5782-8) Mucus Threads (test code = 8247-9) Bacteria (test code = 5769-5) None seen None seen/Few Yeast (test code = 5822-2) Trichomonas (test code = 5813-1) Comment (test code = 63865-7) [facility] Description: Urate [Mass/volume] in Serum or [id number] 02:57:00 Test Item Value Reference Range Interpretation Comments Uric Acid (test 11.5 mg/dL 3.8-8.4 H code = 3084-1) Therapeutic t arget for gout patients: <6.0

P erformed by:
[facility] (HD)

[facility] Description: Comp. Metabolic Panel (14)2021-01-30 02:57:00 Test Item Value Reference Range Interpretation Comments Glucose (test code 256 mg/dL 65-99 H = 2345-7) BUN (test code = 57 mg/dL 6-24 H 3094-0) Creatinine (test 2.38 mg/dL 0.76-1.27 H code = 2160-0) eGFR If NonAfricn 31 >59 L Am (test code = mL/min/1.73 85003-5) eGFR If Africn Am 36 >59 L In accor dance with (test code = mL/min/1.73 recommendations from 29157-0) the NKF-ASN Tas k force, [facility] is in the process of updating its eG FR calculation to the 2020 CKD-EPI creatinine equa tion that estimates kidney function witho ut a race variable.
< br/>Per formed by:
[facility] ([place])

BUN/Creatinine 24 9-20 H Ratio (test code = 3097-3) Sodium (test code = 139 mmol/L 809-561 6053-2) Potassium (test 4.9 mmol/L 3.5-5.2 code = 2823-3) Chloride (test code 100 mmol/L 96-106 = 2075-0) Carbon Dioxide, 23 mmol/L 20-29 Total (test code = 2027-) Calcium (test code 9.0 mg/dL 8.7-10.2 = 03178-6) Protein, Total 6.5 g/dL 6.0-8.5 (test code = 2885-2) Albumin (test code 3.4 g/dL 4.0-5.0 L = 1751-7) Globulin, Total 3.1 g/dL 1.5-4.5 (test code = 99625-9) A/G Ratio (test 1.1 1.2-2.2 L code = 1759-0) Bilirubin, Total 0.4 mg/dL 0.0-1.2 (test code = 1975-2) Alkaline 124 IU/L 44-121 H Phosphatase (test Pl ease note code = 6768-6) reference int erval change
<b r/>Perf ormed by:
[facility] ([place])

AST (SGOT) (test 17 IU/L 0-40 code = 1920-8) ALT (SGPT) (test 23 IU/L 0-44 code = 1742-6) [facility]: Phosphate [Mass/volume] in Serum or Plasma 2021-01-30 02:57:00 Test Item Value Reference Range Interpretation Comments Phosphorus (test code = 2777-1) 4.5 mg/dL 2.8-4.1 H [facility] Description: Magnesium [Mass/volume] in Serum or Plasma 2021-01-30 02:57:00 Test Item Value Reference Range Interpretation Comments Magnesium (test code = 46634-5) 1.8 mg/dL 1.6-2.3 [facility] Description: Microscopic [id number] 02:57:00 Test Item Value Reference Range Interpretation Comments WBC (test code = 5821-4) None seen 0-5 RBC (test code = 05977-9) None seen 0-2 Epithelial Cells (non renal) (test None seen 0-10 code = 5787-7) Epithelial Cells (renal) (test code = 35774-0) Casts (test code = 46264-7) None seen None seen Cast Type (test code = 99606-9) Crystals (test code = 5783-6) Crystal Type (test code = 5782-8) Mucus Threads (test code = 8247-9) Bacteria (test code = 5769-5) None seen None seen/Few Yeast (test code = 5822-2) Trichomonas (test code = 5813-1) Comment (test code = 24904-1) [facility] Description: Urate [Mass/volume] in Serum or Jhctad7672-07-12 02:57:00 Test Item Value Reference Range Interpretation Comments Uric Acid (test 11.5 mg/dL 3.8-8.4 H code = 3084-1) Therapeutic t arget for gout patients: <6.0

P erformed by:
[facility] ([place])

[facility] Description: Comp. Metabolic Panel (14)2021-01-30 02:57:00 Test Item Value Reference Range Interpretation Comments Glucose (test code 256 mg/dL 65-99 H = 2345-7) BUN (test code = 57 mg/dL 6-24 H 3094-0) Creatinine (test 2.38 mg/dL 0.76-1.27 H code = 2160-0) eGFR If NonAfricn 31 >59 L Am (test code = mL/min/1.73 30844-5) eGFR If Africn Am 36 >59 L In accor dance with (test code = mL/min/1.73 recommendations from 78673-3) the NKF-ASN Tas k force, [facility] is in the process of updating its eG FR calculation to the 2020 CKD-EPI creatinine equa tion that estimates kidney function witho ut a race variable.
< br/>Per formed by:
[facility] (HD)

BUN/Creatinine 24 9-20 H Ratio (test code = 3097-3) Sodium (test code = 139 mmol/L 359-447 8732-2) Potassium (test 4.9 mmol/L 3.5-5.2 code = 2823-3) Chloride (test code 100 mmol/L 96-106 = 2075-0) Carbon Dioxide, 23 mmol/L 20-29 Total (test code = 2027-9) Calcium (test code 9.0 mg/dL 8.7-10.2 = 03295-8) Protein, Total 6.5 g/dL 6.0-8.5 (test code = 2885-2) Albumin (test code 3.4 g/dL 4.0-5.0 L = 1751-7) Globulin, Total 3.1 g/dL 1.5-4.5 (test code = 78328-9) A/G Ratio (test 1.1 1.2-2.2 L code = 1759-0) Bilirubin, Total 0.4 mg/dL 0.0-1.2 (test code = 1975-2) Alkaline 124 IU/L 44-121 H Phosphatase (test Pl ease note code = 6768-6) reference int erval change
<b r/>Perf ormed by:
[facility] ([place])

AST (SGOT) (test 17 IU/L 0-40 [...] Range Interpretation Comments Magnesium (test code = 08910-6) 1.8 mg/dL 1.6-2.3 [facility] Description: Microscopic Seackkzchfl7286-01-01 02:57:00 Test Item Value Reference Range Interpretation Comments WBC (test code = 5821-4) None seen 0-5 RBC (test code = 28954-7) None seen 0-2 Epithelial Cells (non renal) (test None seen 0-10 code = 5787-7) Epithelial Cells (renal) (test code = 27840-1) Casts (test code = 30785-9) None seen None seen Cast Type (test code = 61977-5) Crystals (test code = 5783-6) Crystal Type (test code = 5782-8) Mucus Threads (test code = 8247-9) Bacteria (test code = 5769-5) None seen None seen/Few Yeast (test code = 5822-2) Trichomonas (test code = 5813-1) Comment (test code = 02197-7) [facility] Description: Urate [Mass/volume] in Serum or [id number] 02:57:00 Test Item Value Reference Range Interpretation Comments Uric Acid (test 11.5 mg/dL 3.8-8.4 H code = 3084-1) Therapeutic t arget for gout patients: <6.0

P erformed by:
[facility] ([place])

[facility] Description: Comp. Metabolic Panel (14)2021-01-30 02:57:00 Test Item Value Reference Range Interpretation Comments Glucose (test code 256 mg/dL 65-99 H = 2345-7) BUN (test code = 57 mg/dL 6-24 H 3094-0) Creatinine (test 2.38 mg/dL 0.76-1.27 H code = 2160-0) eGFR If NonAfricn 31 >59 L Am (test code = mL/min/1.73 90743-1) eGFR If Africn Am 36 >59 L In accor dance with (test code = mL/min/1.73 recommendations from 00462-3) the NKF-ASN Tas k force, [facility] is in the process of updating its eG FR calculation to the 2020 CKD-EPI creatinine equa tion that estimates kidney function witho ut a race variable.
< br/>Per formed by:
[facility] ([place])

BUN/Creatinine 24 9-20 H Ratio (test code = 3097-3) Sodium (test code = 139 mmol/L 763-114 2458-2) Potassium (test 4.9 mmol/L 3.5-5.2 code = 2823-3) Chloride (test code 100 mmol/L 96-106 = 2075-0) Carbon Dioxide, 23 mmol/L 20-29 Total (test code = 2027-) Calcium (test code 9.0 mg/dL 8.7-10.2 = 19667-3) Protein, Total 6.5 g/dL 6.0-8.5 (test code = 2885-2) Albumin (test code 3.4 g/dL 4.0-5.0 L = 1751-7) Globulin, Total 3.1 g/dL 1.5-4.5 (test code = 40406-5) A/G Ratio (test 1.1 1.2-2.2 L code = 1759-0) Bilirubin, Total 0.4 mg/dL 0.0-1.2 (test code = 1975-2) Alkaline 124 IU/L 44-121 H Phosphatase (test Pl ease note code = 4601-6) reference int erval change
<b r/>Perf ormed by:
[facility] ([place])

AST (SGOT) (test 17 IU/L 0-40 [...] Range Interpretation Comments Magnesium (test code = 10951-8) 1.8 mg/dL 1.6-2.3 [facility] Description: Microscopic Vikocblhnhd9542-56-45 02:57:00 Test Item Value Reference Range Interpretation Comments WBC (test code = 5821-4) None seen 0-5 RBC (test code = 83441-1) None seen 0-2 Epithelial Cells (non renal) (test None seen 0-10 code = 5787-7) Epithelial Cells (renal) (test code = 75609-8) Casts (test code = 92924-9) None seen None seen Cast Type (test code = 58559-1) Crystals (test code = 5783-6) Crystal Type (test code = 5782-8) Mucus Threads (test code = 8247-9) Bacteria (test code = 5769-5) None seen None seen/Few Yeast (test code = 5822-2) Trichomonas (test code = 5813-1) Comment (test code = 13033-5) [facility] Description: Urate [Mass/volume] in Serum or Wlihjt0062-09-43 02:57:00 Test Item Value Reference Range Interpretation Comments Uric Acid (test 11.5 mg/dL 3.8-8.4 H code = 3084-1) Therapeutic t arget for gout patients: <6.0

P erformed by:
[facility] (HD)

[facility] Description: Comp. Metabolic Panel (14)2021-01-30 02:57:00 Test Item Value Reference Range Interpretation Comments Glucose (test code 256 mg/dL 65-99 H = 2345-7) BUN (test code = 57 mg/dL 6-24 H 3094-0) Creatinine (test 2.38 mg/dL 0.76-1.27 H code = 2160-0) eGFR If NonAfricn 31 >59 L Am (test code = mL/min/1.73 68873-2) eGFR If Africn Am 36 >59 L In accor dance with (test code = mL/min/1.73 recommendations from 55800-9) the NKF-ASN Tas k force, [facility] is in the process of updating its eG FR calculation to the 2020 CKD-EPI creatinine equa tion that estimates kidney function witho ut a race variable.
< br/>Per formed by:
[facility] ([place])

BUN/Creatinine 24 9-20 H Ratio (test code = 3097-3) Sodium (test code = 139 mmol/L 559-475 3924-2) Potassium (test 4.9 mmol/L 3.5-5.2 code = 2823-3) Chloride (test code 100 mmol/L 96-106 = 2075-0) Carbon Dioxide, 23 mmol/L 20-29 Total (test code = 2027-) Calcium (test code 9.0 mg/dL 8.7-10.2 = 86596-3) Protein, Total 6.5 g/dL 6.0-8.5 (test code = 2885-2) Albumin (test code 3.4 g/dL 4.0-5.0 L = 1751-7) Globulin, Total 3.1 g/dL 1.5-4.5 (test code = 14465-3) A/G Ratio (test 1.1 1.2-2.2 L code = 1759-0) Bilirubin, Total 0.4 mg/dL 0.0-1.2 (test code = 1975-2) Alkaline 124 IU/L 44-121 H Phosphatase (test Pl ease note code = 6768-6) reference int erval change
<b r/>Perf ormed by:
[facility] ([place])

AST (SGOT) (test 17 IU/L 0-40 code = 1920-8) ALT (SGPT) (test 23 IU/L 0-44 code = 1742-6) [facility] Description: Phosphate [Mass/volume] in Serum or Plasma 2021-01-30 02:57:00 Test Item Value Reference Range Interpretation Comments Phosphorus (test code = 2777-1) 4.5 mg/dL 2.8-4.1 H [facility] Description: Magnesium [Mass/volume] in Serum or Plasma 2021-01-30 02:57:00 Test Item Value Reference Range Interpretation Comments Magnesium (test code = 82034-6) 1.8 mg/dL 1.6-2.3 [facility] Description: Microscopic Yfomukqjedp8624-84-97 02:57:00 Test Item Value Reference Range Interpretation Comments WBC (test code = 5821-4) None seen 0-5 RBC (test code = 23463-7) None seen 0-2 Epithelial Cells (non renal) (test None seen 0-10 code = 5787-7) Epithelial Cells (renal) (test code = 72116-7) Casts (test code = 07488-8) None seen None seen Cast Type (test code = 39449-7) Crystals (test code = 5783-6) Crystal Type (test code = 5782-8) Mucus Threads (test code = 8247-9) Bacteria (test code = 5769-5) None seen None seen/Few Yeast (test code = 5822-2) Trichomonas (test code = 5813-1) Comment (test code = 72106-6) [facility] Description: Urate [Mass/volume] in Serum or Xoinjz0385-09-11 02:57:00 Test Item Value Reference Range Interpretation Comments Uric Acid (test 11.5 mg/dL 3.8-8.4 H code = 3084-1) Therapeutic t arget for gout patients: <6.0

P erformed by:
[facility] (HD)

[facility] Description: Comp. Metabolic Panel (14)2021-01-30 02:57:00 Test Item Value Reference Range Interpretation Comments Glucose (test code 256 mg/dL 65-99 H = 2345-7) BUN (test code = 57 mg/dL 6-24 H 3094-0) Creatinine (test 2.38 mg/dL 0.76-1.27 H code = 2160-0) eGFR If NonAfricn 31 >59 L Am (test code = mL/min/1.73 64173-2) eGFR If Africn Am 36 >59 L In accor dance with (test code = mL/min/1.73 recommendations from 42104-8) the NKF-ASN Tas k force, [facility] is in the process of updating its eG FR calculation to the 2020 CKD-EPI creatinine equa tion that estimates kidney function witho ut a race variable.
< br/>Per formed by:
[facility] ([place])

BUN/Creatinine 24 9-20 H Ratio (test code = 3097-3) Sodium (test code = 139 mmol/L 706-913 0318-2) Potassium (test 4.9 mmol/L 3.5-5.2 code = 2823-3) Chloride (test code 100 mmol/L 96-106 = 2075-0) Carbon Dioxide, 23 mmol/L 20-29 Total (test code = 2027-) Calcium (test code 9.0 mg/dL 8.7-10.2 = 35767-9) Protein, Total 6.5 g/dL 6.0-8.5 (test code = 2885-2) Albumin (test code 3.4 g/dL 4.0-5.0 L = 1751-7) Globulin, Total 3.1 g/dL 1.5-4.5 (test code = 63169-9) A/G Ratio (test 1.1 1.2-2.2 L code = 1759-0) Bilirubin, Total 0.4 mg/dL 0.0-1.2 (test code = 1975-2) Alkaline 124 IU/L 44-121 H Phosphatase (test Pl ease note code = 6768-6) reference int erval change
<b r/>Perf ormed by:
[facility] ([place])

AST (SGOT) (test 17 IU/L 0-40 [...] Range Interpretation Comments Magnesium (test code = 32614-9) 1.8 mg/dL 1.6-2.3 [facility] Description: Microscopic Pfhylqkmicu7153-94-55 02:57:00 Test Item Value Reference Range Interpretation Comments WBC (test code = 5821-4) None seen 0-5 RBC (test code = 88839-2) None seen 0-2 Epithelial Cells (non renal) (test None seen 0-10 code = 5787-7) Epithelial Cells (renal) (test code = 09205-1) Casts (test code = 59171-6) None seen None seen Cast Type (test code = 39291-3) Crystals (test code = 5783-6) Crystal Type (test code = 5782-8) Mucus Threads (test code = 8247-9) Bacteria (test code = 5769-5) None seen None seen/Few Yeast (test code = 5822-2) Trichomonas (test code = 5813-1) Comment (test code = 01899-4) [facility] Description: Urate [Mass/volume] in Serum or Pjygrl6395-67-55 02:57:00 Test Item Value Reference Range Interpretation Comments Uric Acid (test 11.5 mg/dL 3.8-8.4 H code = 3084-1) Therapeutic t arget for gout patients: <6.0

P erformed by:
[facility] (HD)

[facility] Description: Comp. Metabolic Panel (14)2021-01-30 02:57:00 Test Item Value Reference Range Interpretation Comments Glucose (test code 256 mg/dL 65-99 H = 2345-7) BUN (test code = 57 mg/dL 6-24 H 3094-0) Creatinine (test 2.38 mg/dL 0.76-1.27 H code = 2160-0) eGFR If NonAfricn 31 >59 L Am (test code = mL/min/1.73 83874-2) eGFR If Africn Am 36 >59 L In accor dance with (test code = mL/min/1.73 recommendations from 41317-2) the NKF-ASN Tas k force, [facility] is in the process of updating its eG FR calculation to the 2020 CKD-EPI creatinine equa tion that estimates kidney function witho ut a race variable.
< br/>Per formed by:
[facility] (HD)

BUN/Creatinine 24 9-20 H Ratio (test code = 3097-3) Sodium (test code = 139 mmol/L 696-243 7101-2) Potassium (test 4.9 mmol/L 3.5-5.2 code = 2823-3) Chloride (test code 100 mmol/L 96-106 = 2075-0) Carbon Dioxide, 23 mmol/L 20-29 Total (test code = 2027-) Calcium (test code 9.0 mg/dL 8.7-10.2 = 92553-3) Protein, Total 6.5 g/dL 6.0-8.5 (test code = 2885-2) Albumin (test code 3.4 g/dL 4.0-5.0 L = 1751-7) Globulin, Total 3.1 g/dL 1.5-4.5 (test code = 96184-9) A/G Ratio (test 1.1 1.2-2.2 L code = 1759-0) Bilirubin, Total 0.4 mg/dL 0.0-1.2 (test code = 1975-2) Alkaline 124 IU/L 44-121 H Phosphatase (test Pl ease note code = 6768-6) reference int erval change
<b r/>Perf ormed by:
[facility] ([place])

AST (SGOT) (test 17 IU/L 0-40 code = 1920-8) ALT (SGPT) (test 23 IU/L 0-44 code = 1742-6) [facility] Description: Phosphate [Mass/volume] in Serum or Plasma 2021-01-30 02:57:00 Test Item Value Reference Range Interpretation Comments Phosphorus (test code = 2777-1) 4.5 mg/dL 2.8-4.1 H [facility] Description: Magnesium [Mass/volume] in Serum or Plasma 2021-01-30 02:57:00 Test Item Value Reference Range Interpretation Comments Magnesium (test code = 45550-8) 1.8 mg/dL 1.6-2.3 [facility] Description: Microscopic Gxkzqdvtjwh7993-88-51 02:57:00 Test Item Value Reference Range Interpretation Comments WBC (test code = 5821-4) None seen 0-5 RBC (test code = 68615-8) None seen 0-2 Epithelial Cells (non renal) (test None seen 0-10 code = 5787-7) Epithelial Cells (renal) (test code = 80678-0) Casts (test code = 27329-0) None seen None seen Cast Type (test code = 04250-3) Crystals (test code = 5783-6) Crystal Type (test code = 5782-8) Mucus Threads (test code = 8247-9) Bacteria (test code = 5769-5) None seen None seen/Few Yeast (test code = 5822-2) Trichomonas (test code = 5813-1) Comment (test code = 49345-8) [facility]: Urate [Mass/volume] in Serum or [id number] 02:57:00 Test Item Value Reference Range Interpretation Comments Uric Acid (test 11.5 mg/dL 3.8-8.4 H code = 3084-1) Therapeutic t arget for gout patients: <6.0

P erformed by:
[facility] ([place])

[facility] Description: Comp. Metabolic Panel (14)2021-01-30 02:57:00 Test Item Value Reference Range Interpretation Comments Glucose (test code 256 mg/dL 65-99 H = 2345-7) BUN (test code = 57 mg/dL 6-24 H 3094-0) Creatinine (test 2.38 mg/dL 0.76-1.27 H code = 2160-0) eGFR If NonAfricn 31 >59 L Am (test code = mL/min/1.73 90926-1) eGFR If Africn Am 36 >59 L In accor dance with (test code = mL/min/1.73 recommendations from 95272-3) the NKF-ASN Tas k force, [facility] is in the process of updating its eG FR calculation to the 2020 CKD-EPI creatinine equa tion that estimates kidney function witho ut a race variable.
< br/>Per formed by:
[facility] ([place])

BUN/Creatinine 24 9-20 H Ratio (test code = 3097-3) Sodium (test code = 139 mmol/L 259-371 3196-2) Potassium (test 4.9 mmol/L 3.5-5.2 code = 2823-3) Chloride (test code 100 mmol/L 96-106 = 2075-0) Carbon Dioxide, 23 mmol/L 20-29 Total (test code = 2027-) Calcium (test code 9.0 mg/dL 8.7-10.2 = 65237-2) Protein, Total 6.5 g/dL 6.0-8.5 (test code = 2885-2) Albumin (test code 3.4 g/dL 4.0-5.0 L = 1751-7) Globulin, Total 3.1 g/dL 1.5-4.5 (test code = 74143-3) A/G Ratio (test 1.1 1.2-2.2 L code = 1759-0) Bilirubin, Total 0.4 mg/dL 0.0-1.2 (test code = 1975-2) Alkaline 124 IU/L 44-121 H Phosphatase (test Pl ease note code = 6768-6) reference int erval change
<b r/>Perf ormed by:
[facility] ([place])

AST (SGOT) (test 17 IU/L 0-40 code = 1920-8) ALT (SGPT) (test 23 IU/L 0-44 code = 1742-6) [facility] Description: Phosphate [Mass/volume] in Serum or Plasma 2021-01-30 02:57:00 Test Item Value Reference Range Interpretation Comments Phosphorus (test code = 2777-1) 4.5 mg/dL 2.8-4.1 H [facility] Description: Magnesium [Mass/volume] in Serum or Plasma 2021-01-30 02:57:00 Test Item Value Reference Range Interpretation Comments Magnesium (test code = 22565-1) 1.8 mg/dL 1.6-2.3 [facility] Description: Microscopic Mimhsxmuqfa3717-45-51 02:57:00 Test Item Value Reference Range Interpretation Comments WBC (test code = 5821-4) None seen 0-5 RBC (test code = 58303-5) None seen 0-2 Epithelial Cells (non renal) (test None seen 0-10 code = 5787-7) Epithelial Cells (renal) (test code = 13092-5) Casts (test code = 66002-0) None seen None seen Cast Type (test code = 21103-1) Crystals (test code = 5783-6) Crystal Type (test code = 5782-8) Mucus Threads (test code = 8247-9) Bacteria (test code = 5769-5) None seen None seen/Few Yeast (test code = 5822-2) Trichomonas (test code = 5813-1) Comment (test code = 14413-0) [facility]: Urate [Mass/volume] in Serum or Uqwqnh3557-45-83 02:57:00 Test Item Value Reference Range Interpretation Comments Uric Acid (test 11.5 mg/dL 3.8-8.4 H code = 3084-1) Therapeutic t arget for gout patients: <6.0

P erformed by:
[facility] ([place])

[facility]: Comp. Metabolic Panel (14)2021-01-30 02:57:00 Test Item Value Reference Range Interpretation Comments Glucose (test code 256 mg/dL 65-99 H = 2345-7) BUN (test code = 57 mg/dL 6-24 H 3094-0) Creatinine (test 2.38 mg/dL 0.76-1.27 H code = 2160-0) eGFR If NonAfricn 31 >59 L Am (test code = mL/min/1.73 44711-4) eGFR If Africn Am 36 >59 L In accor dance with (test code = mL/min/1.73 recommendations from 63066-9) the NKF-ASN Tas k force, [facility] is in the process of updating its eG FR calculation to the 2020 CKD-EPI creatinine equa tion that estimates kidney function witho ut a race variable.
< br/>Per formed by:
[facility] ([place])

BUN/Creatinine 24 9-20 H Ratio (test code = 3097-3) Sodium (test code = 139 mmol/L 296-118 8661-2) Potassium (test 4.9 mmol/L 3.5-5.2 code = 2823-3) Chloride (test code 100 mmol/L 96-106 = 2075-0) Carbon Dioxide, 23 mmol/L 20-29 Total (test code = 2027-) Calcium (test code 9.0 mg/dL 8.7-10.2 = 84928-5) Protein, Total 6.5 g/dL 6.0-8.5 (test code = 2885-2) Albumin (test code 3.4 g/dL 4.0-5.0 L = 1751-7) Globulin, Total 3.1 g/dL 1.5-4.5 (test code = 51215-3) A/G Ratio (test 1.1 1.2-2.2 L code = 1759-0) Bilirubin, Total 0.4 mg/dL 0.0-1.2 (test code = 1975-2) Alkaline 124 IU/L 44-121 H Phosphatase (test Pl ease note code = 6768-6) reference int erval change
<b r/>Perf ormed by:
[facility] ([place])

AST (SGOT) (test 17 IU/L 0-40 code = 1920-8) ALT (SGPT) (test 23 IU/L 0-44 code = 1742-6) [facility] Description: Phosphate [Mass/volume] in Serum or Plasma 2021-01-30 02:57:00 Test Item Value Reference Range Interpretation Comments Phosphorus (test code = 2777-1) 4.5 mg/dL 2.8-4.1 H [facility] Description: Magnesium [Mass/volume] in Serum or Plasma 2021-01-30 02:57:00 Test Item Value Reference Range Interpretation Comments Magnesium (test code = 41548-0) 1.8 mg/dL 1.6-2.3 [facility] Description: Microscopic Rdyfasoueak4788-40-81 02:57:00 Test Item Value Reference Range Interpretation Comments WBC (test code = 5821-4) None seen 0-5 RBC (test code = 72858-1) None seen 0-2 Epithelial Cells (non renal) (test None seen 0-10 code = 5787-7) Epithelial Cells (renal) (test code = 19768-6) Casts (test code = 18115-8) None seen None seen Cast Type (test code = 55229-4) Crystals (test code = 5783-6) Crystal Type (test code = 5782-8) Mucus Threads (test code = 8247-9) Bacteria (test code = 5769-5) None seen None seen/Few Yeast (test code = 5822-2) Trichomonas (test code = 5813-1) Comment (test code = 04176-7) [facility] Description: Urate [Mass/volume] in Serum or [id number] 02:57:00 Test Item Value Reference Range Interpretation Comments Uric Acid (test 11.5 mg/dL 3.8-8.4 H code = 3084-1) Therapeutic t arget for gout patients: <6.0

P erformed by:
[facility] ([place])

[facility] Description: Comp. Metabolic Panel (14)2021-01-30 02:57:00 Test Item Value Reference Range Interpretation Comments Glucose (test code 256 mg/dL 65-99 H = 2345-7) BUN (test code = 57 mg/dL 6-24 H 3094-0) Creatinine (test 2.38 mg/dL 0.76-1.27 H code = 2160-0) eGFR If NonAfricn 31 >59 L Am (test code = mL/min/1.73 52267-5) eGFR If Africn Am 36 >59 L In accor dance with (test code = mL/min/1.73 recommendations from 37957-8) the NKF-ASN Tas k force, [facility] is in the process of updating its eG FR calculation to the 2020 CKD-EPI creatinine equa tion that estimates kidney function witho ut a race variable.
< br/>Per formed by:
[facility] ([place])

BUN/Creatinine 24 9-20 H Ratio (test code = 3097-3) Sodium (test code = 139 mmol/L 336-134 1499-2) Potassium (test 4.9 mmol/L 3.5-5.2 code = 2823-3) Chloride (test code 100 mmol/L 96-106 = 2075-0) Carbon Dioxide, 23 mmol/L 20-29 Total (test code = 2027-) Calcium (test code 9.0 mg/dL 8.7-10.2 = 00153-8) Protein, Total 6.5 g/dL 6.0-8.5 (test code = 2885-2) Albumin (test code 3.4 g/dL 4.0-5.0 L = 1751-7) Globulin, Total 3.1 g/dL 1.5-4.5 (test code = 62524-5) A/G Ratio (test 1.1 1.2-2.2 L code = 1759-0) Bilirubin, Total 0.4 mg/dL 0.0-1.2 (test code = 1975-2) Alkaline 124 IU/L 44-121 H Phosphatase (test Pl ease note code = 6768-6) reference int erval change
<b r/>Perf ormed by:
[facility] ([place])

AST (SGOT) (test 17 IU/L 0-40 code = 1920-8) ALT (SGPT) (test 23 IU/L 0-44 code = 1742-6) [facility] Description: Phosphate [Mass/volume] in Serum or Plasma 2021-01-30 02:57:00 Test Item Value Reference Range Interpretation Comments Phosphorus (test code = 2777-1) 4.5 mg/dL 2.8-4.1 H [facility] Description: Magnesium [Mass/volume] in Serum or Plasma 2021-01-30 02:57:00 Test Item Value Reference Range Interpretation Comments Magnesium (test code = 73433-6) 1.8 mg/dL 1.6-2.3 [facility] Description: Microscopic Ekjvrkjtcck8477-26-90 02:57:00 Test Item Value Reference Range Interpretation Comments WBC (test code = 5821-4) None seen 0-5 RBC (test code = 89996-4) None seen 0-2 Epithelial Cells (non renal) (test None seen 0-10 code = 5787-7) Epithelial Cells (renal) (test code = 54170-5) Casts (test code = 82036-7) None seen None seen Cast Type (test code = 64710-7) Crystals (test code = 5783-6) Crystal Type (test code = 5782-8) Mucus Threads (test code = 8247-9) Bacteria (test code = 5769-5) None seen None seen/Few Yeast (test code = 5822-2) Trichomonas (test code = 5813-1) Comment (test code = 47269-3) [facility] Description: Urate [Mass/volume] in Serum or Iyqkxm4467-12-04 02:57:00 Test Item Value Reference Range Interpretation Comments Uric Acid (test 11.5 mg/dL 3.8-8.4 H code = 3084-1) Therapeutic t arget for gout patients: <6.0

P erformed by:
[facility] ([place])

[facility] Description: Comp. Metabolic Panel (14)2021-01-30 02:57:00 Test Item Value Reference Range Interpretation Comments Glucose (test code 256 mg/dL 65-99 H = 2345-7) BUN (test code = 57 mg/dL 6-24 H 3094-0) Creatinine (test 2.38 mg/dL 0.76-1.27 H code = 2160-0) eGFR If NonAfricn 31 >59 L Am (test code = mL/min/1.73 53906-7) eGFR If Africn Am 36 >59 L In accor dance with (test code = mL/min/1.73 recommendations from 92392-7) the NKF-ASN Tas k force, [facility] is in the process of updating its eG FR calculation to the 2020 CKD-EPI creatinine equa tion that estimates kidney function witho ut a race variable.
< br/>Per formed by:
[facility] ([place])

BUN/Creatinine 24 9-20 H Ratio (test code = 3097-3) Sodium (test code = 139 mmol/L 824-938 1237-2) Potassium (test 4.9 mmol/L 3.5-5.2 code = 2823-3) Chloride (test code 100 mmol/L 96-106 = 2075-0) Carbon Dioxide, 23 mmol/L 20-29 Total (test code = 2027-) Calcium (test code 9.0 mg/dL 8.7-10.2 = 94780-1) Protein, Total 6.5 g/dL 6.0-8.5 (test code = 2885-2) Albumin (test code 3.4 g/dL 4.0-5.0 L = 1751-7) Globulin, Total 3.1 g/dL 1.5-4.5 (test code = 30568-3) A/G Ratio (test 1.1 1.2-2.2 L code = 1759-0) Bilirubin, Total 0.4 mg/dL 0.0-1.2 (test code = 1975-2) Alkaline 124 IU/L 44-121 H Phosphatase (test Pl ease note code = 6768-6) reference int erval change
<b r/>Perf ormed by:
[facility] ([place])

AST (SGOT) (test 17 IU/L 0-40 code = 1920-8) ALT (SGPT) (test 23 IU/L 0-44 code = 1742-6) [facility] Description: Phosphate [Mass/volume] in Serum or Plasma 2021-01-30 02:57:00 Test Item Value Reference Range Interpretation Comments Phosphorus (test code = 2777-1) 4.5 mg/dL 2.8-4.1 H [facility] Description: Magnesium [Mass/volume] in Serum or Plasma 2021-01-30 02:57:00 Test Item Value Reference Range Interpretation Comments Magnesium (test code = 84441-4) 1.8 mg/dL 1.6-2.3 [facility] Description: Microscopic Ctmxajzasaw6687-97-90 02:57:00 Test Item Value Reference Range Interpretation Comments WBC (test code = 5821-4) None seen 0-5 RBC (test code = 10230-9) None seen 0-2 Epithelial Cells (non renal) (test None seen 0-10 code = 5787-7) Epithelial Cells (renal) (test code = 23222-2) Casts (test code = 01299-5) None seen None seen Cast Type (test code = 72734-1) Crystals (test code = 5783-6) Crystal Type (test code = 5782-8) Mucus Threads (test code = 8247-9) Bacteria (test code = 5769-5) None seen None seen/Few Yeast (test code = 5822-2) Trichomonas (test code = 5813-1) Comment (test code = 71211-2) [facility] Description: Urate [Mass/volume] in Serum or [id number] 02:57:00 Test Item Value Reference Range Interpretation Comments Uric Acid (test 11.5 mg/dL 3.8-8.4 H code = 3084-1) Therapeutic t arget for gout patients: <6.0

P erformed by:
[facility] ([place])

[facility] Description: Comp. Metabolic Panel (14)2021-01-30 02:57:00 Test Item Value Reference Range Interpretation Comments Glucose (test code 256 mg/dL 65-99 H = 2345-7) BUN (test code = 57 mg/dL 6-24 H 3094-0) Creatinine (test 2.38 mg/dL 0.76-1.27 H code = 2160-0) eGFR If NonAfricn 31 >59 L Am (test code = mL/min/1.73 43119-7) eGFR If Africn Am 36 >59 L In accor dance with (test code = mL/min/1.73 recommendations from 23811-2) the NKF-ASN Tas k force, [facility] is in the process of updating its eG FR calculation to the 2020 CKD-EPI creatinine equa tion that estimates kidney function witho ut a race variable.
< br/>Per formed by:
[facility] (HD)

BUN/Creatinine 24 9-20 H Ratio (test code = 3097-3) Sodium (test code = 139 mmol/L 945-644 2903-2) Potassium (test 4.9 mmol/L 3.5-5.2 code = 2823-3) Chloride (test code 100 mmol/L 96-106 = 2075-0) Carbon Dioxide, 23 mmol/L 20-29 Total (test code = 2027-) Calcium (test code 9.0 mg/dL 8.7-10.2 = 11585-3) Protein, Total 6.5 g/dL 6.0-8.5 (test code = 2885-2) Albumin (test code 3.4 g/dL 4.0-5.0 L = 1751-7) Globulin, Total 3.1 g/dL 1.5-4.5 (test code = 84324-8) A/G Ratio (test 1.1 1.2-2.2 L code = 1759-0) Bilirubin, Total 0.4 mg/dL 0.0-1.2 (test code = 1975-2) Alkaline 124 IU/L 44-121 H Phosphatase (test Pl ease note code = 6768-6) reference int erval change
<b r/>Perf ormed by:
[facility] ([place])

AST (SGOT) (test 17 IU/L 0-40 [...] Range Interpretation Comments Magnesium (test code = 45149-0) 1.8 mg/dL 1.6-2.3 [facility] Description: Microscopic Pfyhoaodcnv3979-79-51 02:57:00 Test Item Value Reference Range Interpretation Comments WBC (test code = 5821-4) None seen 0-5 RBC (test code = 59791-7) None seen 0-2 Epithelial Cells (non renal) (test None seen 0-10 code = 5787-7) Epithelial Cells (renal) (test code = 03644-4) Casts (test code = 33549-8) None seen None seen Cast Type (test code = 72911-8) Crystals (test code = 5783-6) Crystal Type (test code = 5782-8) Mucus Threads (test code = 8247-9) Bacteria (test code = 5769-5) None seen None seen/Few Yeast (test code = 5822-2) Trichomonas (test code = 5813-1) Comment (test code = 17366-6) [facility] Description: Urate [Mass/volume] in Serum or Khbafk5747-57-90 02:57:00 Test Item Value Reference Range Interpretation Comments Uric Acid (test 11.5 mg/dL 3.8-8.4 H code = 3084-1) Therapeutic t arget for gout patients: <6.0

P erformed by:
[facility] ([place])

[facility] Description: Urinalysis, [id number] 02:24:00 Test Item Value Reference Range Interpretation Comments Specific [place] (test 1.017 1.005-1.030 code = 2965-2) pH (test code = 5.5 5.0-7.5 5803-2) Urine-Color (test code Yellow Yellow = 5778-6) Appearance (test code Clear Clear = 5767-9) WBC Esterase (test Negative Negative code = 5799-2) Protein (test code = 4+ Negative/Trace A 38918-0) Glucose (test code = 1+ Negative A 2349-9) Ketones (test code = Negative Negative 2514-8) Occult Blood (test Trace Negative A code = 5794-3) Bilirubin (test code = Negative Negative 5770-3) Urobilinogen,Semi-Qn 0.2 mg/dL 0.2-1.0 (test code = 14645-6) Nitrite, Urine (test Negative Negative code = 5802-4) Microscopic See below: Microscopic was Examination (test code indic ated and was = 16520-2) performed.

P erformed by:
[facility] ()

[facility] Description: Urinalysis, [id number] 02:24:00 Test Item Value Reference Range Interpretation Comments Specific [place] (test 1.017 1.005-1.030 code = 2965-2) pH (test code = 5.5 5.0-7.5 5803-2) Urine-Color (test code Yellow Yellow = 5778-6) Appearance (test code Clear Clear = 5767-9) WBC Esterase (test Negative Negative code = 5799-2) Protein (test code = 4+ Negative/Trace A 44559-0) Glucose (test code = 1+ Negative A 2349-9) Ketones (test code = Negative Negative 2514-8) Occult Blood (test Trace Negative A code = 5794-3) Bilirubin (test code = Negative Negative 5770-3) Urobilinogen,Semi-Qn 0.2 mg/dL 0.2-1.0 (test code = 12476-0) Nitrite, Urine (test Negative Negative code = 5802-4) Microscopic See below: Microscopic was Examination (test code indic ated and was = 31514-8) performed.

P erformed by:
[facility] ()

[facility] Description: Urinalysis, [id number] 02:24:00 Test Item Value Reference Range Interpretation Comments Specific [place] (test 1.017 1.005-1.030 code = 2965-2) pH (test code = 5.5 5.0-7.5 5803-2) Urine-Color (test code Yellow Yellow = 5778-6) Appearance (test code Clear Clear = 5767-9) WBC Esterase (test Negative Negative code = 5799-2) Protein (test code = 4+ Negative/Trace A 57583-1) Glucose (test code = 1+ Negative A 2349-9) Ketones (test code = Negative Negative 2514-8) Occult Blood (test Trace Negative A code = 5794-3) Bilirubin (test code = Negative Negative 5770-3) Urobilinogen,Semi-Qn 0.2 mg/dL 0.2-1.0 (test code = 83278-4) Nitrite, Urine (test Negative Negative code = 5802-4) Microscopic See below: Microscopic was Examination (test code indic ated and was = 80151-8) performed.

P erformed by:
[facility] ()

[facility] Description: Urinalysis, [id number] 02:24:00 Test Item Value Reference Range Interpretation Comments Specific [place] (test 1.017 1.005-1.030 code = 2965-2) pH (test code = 5.5 5.0-7.5 5803-2) Urine-Color (test code Yellow Yellow = 5778-6) Appearance (test code Clear Clear = 5767-9) WBC Esterase (test Negative Negative code = 5799-2) Protein (test code = 4+ Negative/Trace A 41503-3) Glucose (test code = 1+ Negative A 2349-9) Ketones (test code = Negative Negative 2514-8) Occult Blood (test Trace Negative A code = 5794-3) Bilirubin (test code = Negative Negative 5770-3) Urobilinogen,Semi-Qn 0.2 mg/dL 0.2-1.0 (test code = 71164-6) Nitrite, Urine (test Negative Negative code = 5802-4) Microscopic See below: Microscopic was Examination (test code indic ated and was = 55597-4) performed.

P erformed by:
[facility] ()

[facility] Description: Urinalysis, [id number] 02:24:00 Test Item Value Reference Range Interpretation Comments Specific [place] (test 1.017 1.005-1.030 code = 2965-2) pH (test code = 5.5 5.0-7.5 5803-2) Urine-Color (test code Yellow Yellow = 5778-6) Appearance (test code Clear Clear = 5767-9) WBC Esterase (test Negative Negative code = 5799-2) Protein (test code = 4+ Negative/Trace A 09458-3) Glucose (test code = 1+ Negative A 2349-9) Ketones (test code = Negative Negative 2514-8) Occult Blood (test Trace Negative A code = 5794-3) Bilirubin (test code = Negative Negative 5770-3) Urobilinogen,Semi-Qn 0.2 mg/dL 0.2-1.0 (test code = 78349-3) Nitrite, Urine (test Negative Negative code = 5802-4) Microscopic See below: Microscopic was Examination (test code indic ated and was = 37374-5) performed.

P erformed by:
[facility] ()

[facility] Description: Urinalysis, [id number] 02:24:00 Test Item Value Reference Range Interpretation Comments Specific [place] (test 1.017 1.005-1.030 code = 2965-2) pH (test code = 5.5 5.0-7.5 5803-2) Urine-Color (test code Yellow Yellow = 5778-6) Appearance (test code Clear Clear = 5767-9) WBC Esterase (test Negative Negative code = 5799-2) Protein (test code = 4+ Negative/Trace A 23555-0) Glucose (test code = 1+ Negative A 2349-9) Ketones (test code = Negative Negative 2514-8) Occult Blood (test Trace Negative A code = 5794-3) Bilirubin (test code = Negative Negative 5770-3) Urobilinogen,Semi-Qn 0.2 mg/dL 0.2-1.0 (test code = 74648-7) Nitrite, Urine (test Negative Negative code = 5802-4) Microscopic See below: Microscopic was Examination (test code indic ated and was = 02164-3) performed.

P erformed by:
[facility] ()

[facility] Description: Urinalysis, [id number] 02:24:00 Test Item Value Reference Range Interpretation Comments Specific [place] (test 1.017 1.005-1.030 code = 2965-2) pH (test code = 5.5 5.0-7.5 5803-2) Urine-Color (test code Yellow Yellow = 5778-6) Appearance (test code Clear Clear = 5767-9) WBC Esterase (test Negative Negative code = 5799-2) Protein (test code = 4+ Negative/Trace A 83731-5) Glucose (test code = 1+ Negative A 2349-9) Ketones (test code = Negative Negative 2514-8) Occult Blood (test Trace Negative A code = 5794-3) Bilirubin (test code = Negative Negative 5770-3) Urobilinogen,Semi-Qn 0.2 mg/dL 0.2-1.0 (test code = 13311-4) Nitrite, Urine (test Negative Negative code = 5802-4) Microscopic See below: Microscopic was Examination (test code indic ated and was = 60586-2) performed.

P erformed by:
[facility] ()

[facility] Description: Urinalysis, [id number] 02:24:00 Test Item Value Reference Range Interpretation Comments Specific [place] (test 1.017 1.005-1.030 code = 2965-2) pH (test code = 5.5 5.0-7.5 5803-2) Urine-Color (test code Yellow Yellow = 5778-6) Appearance (test code Clear Clear = 5767-9) WBC Esterase (test Negative Negative code = 5799-2) Protein (test code = 4+ Negative/Trace A 65498-1) Glucose (test code = 1+ Negative A 2349-9) Ketones (test code = Negative Negative 2514-8) Occult Blood (test Trace Negative A code = 5794-3) Bilirubin (test code = Negative Negative 5770-3) Urobilinogen,Semi-Qn 0.2 mg/dL 0.2-1.0 (test code = 29246-5) Nitrite, Urine (test Negative Negative code = 5802-4) Microscopic See below: Microscopic was Examination (test code indic ated and was = 18567-7) performed.

P erformed by:
[facility] ()

[facility] Description: Urinalysis, [id number] 02:24:00 Test Item Value Reference Range Interpretation Comments Specific [place] (test 1.017 1.005-1.030 code = 2965-2) pH (test code = 5.5 5.0-7.5 5803-2) Urine-Color (test code Yellow Yellow = 5778-6) Appearance (test code Clear Clear = 5767-9) WBC Esterase (test Negative Negative code = 5799-2) Protein (test code = 4+ Negative/Trace A 50307-3) Glucose (test code = 1+ Negative A 2349-9) Ketones (test code = Negative Negative 2514-8) Occult Blood (test Trace Negative A code = 5794-3) Bilirubin (test code = Negative Negative 5770-3) Urobilinogen,Semi-Qn 0.2 mg/dL 0.2-1.0 (test code = 23753-0) Nitrite, Urine (test Negative Negative code = 5802-4) Microscopic See below: Microscopic was Examination (test code indic ated and was = 15705-6) performed.

P erformed by:
[facility] ()

[facility] Description: Urinalysis, [id number] 02:24:00 Test Item Value Reference Range Interpretation Comments Specific [place] (test 1.017 1.005-1.030 code = 2965-2) pH (test code = 5.5 5.0-7.5 5803-2) Urine-Color (test code Yellow Yellow = 5778-6) Appearance (test code Clear Clear = 5767-9) WBC Esterase (test Negative Negative code = 5799-2) Protein (test code = 4+ Negative/Trace A 74790-6) Glucose (test code = 1+ Negative A 2349-9) Ketones (test code = Negative Negative 2514-8) Occult Blood (test Trace Negative A code = 5794-3) Bilirubin (test code = Negative Negative 5770-3) Urobilinogen,Semi-Qn 0.2 mg/dL 0.2-1.0 (test code = 50380-3) Nitrite, Urine (test Negative Negative code = 5802-4) Microscopic See below: Microscopic was Examination (test code indic ated and was = 06300-5) performed.

P erformed by:
[facility] ()

[facility] Description: Urinalysis, [id number] 02:24:00 Test Item Value Reference Range Interpretation Comments Specific [place] (test 1.017 1.005-1.030 code = 2965-2) pH (test code = 5.5 5.0-7.5 5803-2) Urine-Color (test code Yellow Yellow = 5778-6) Appearance (test code Clear Clear = 5767-9) WBC Esterase (test Negative Negative code = 5799-2) Protein (test code = 4+ Negative/Trace A 14828-7) Glucose (test code = 1+ Negative A 2349-9) Ketones (test code = Negative Negative 2514-8) Occult Blood (test Trace Negative A code = 5794-3) Bilirubin (test code = Negative Negative 5770-3) Urobilinogen,Semi-Qn 0.2 mg/dL 0.2-1.0 (test code = 73726-0) Nitrite, Urine (test Negative Negative code = 5802-4) Microscopic See below: Microscopic was Examination (test code indic ated and was = 13809-4) performed.

P erformed by:
[facility] ()

[facility] Description: Urinalysis, [id number] 02:24:00 Test Item Value Reference Range Interpretation Comments Specific [place] (test 1.017 1.005-1.030 code = 2965-2) pH (test code = 5.5 5.0-7.5 5803-2) Urine-Color (test code Yellow Yellow = 5778-6) Appearance (test code Clear Clear = 5767-9) WBC Esterase (test Negative Negative code = 5799-2) Protein (test code = 4+ Negative/Trace A 92943-1) Glucose (test code = 1+ Negative A 2349-9) Ketones (test code = Negative Negative 2514-8) Occult Blood (test Trace Negative A code = 5794-3) Bilirubin (test code = Negative Negative 5770-3) Urobilinogen,Semi-Qn 0.2 mg/dL 0.2-1.0 (test code = 40949-9) Nitrite, Urine (test Negative Negative code = 5802-4) Microscopic See below: Microscopic was Examination (test code indic ated and was = 31098-4) performed.

P erformed by:
[facility] ()

[facility] Description: Urinalysis, [id number] 02:24:00 [facility] Description: Urinalysis, Complete 2021-01-30 02:24:00[facility]sc[facility] Description: Urinalysis, [id number] 02:24:00[facility] Description: Urinalysis, [id number] 02:24:00Microscopic Examination [facility] Description: Urinalysis, Kensutcn1469-47-14 02:24:00 [facility]opic [facility] Description: Urinalysis, Complete 2021-01-30 02:24:00[facility] Description: Urinalysis, [id number] 02:24:00[facility] Description: Urinalysis, [id number] 02:24:00Microscopic Examination [facility] Description: Urinalysis, [id number] 02:24:00 [facility]scopic [facility] Description: Urinalysis, Complete 2021-01-30 02:24:00[facility]scopic [facility] Description: Urinalysis, [id number] 02:24:00[facility]scopic [facility] Description: Urinalysis, [id number] 02:24:00[facility]scopic [facility]: Natriuretic peptide B [Mass/volume] in Serum or [id number] 13:54:00 Test Item Value Reference Range Interpretation Comments B-Type Natriuretic Peptide (test 427.5 pg/mL 0.0-100.0 H code = 86645-0) [facility]: Natriuretic peptide B [Mass/volume] in Serum or [id number] 13:54:00 Test Item Value Reference Range Interpretation Comments B-Type Natriuretic Peptide (test 427.5 pg/mL 0.0-100.0 H code = 84476-6) [facility] Description: Natriuretic peptide B [Mass/volume] in Serum or [id number] 13:54:00 Test Item Value Reference Range Interpretation Comments B-Type Natriuretic Peptide (test 427.5 pg/mL 0.0-100.0 H code = 12867-7) [facility] Description: Natriuretic peptide B [Mass/volume] in Serum or [id number] 13:54:00 Test Item Value Reference Range Interpretation Comments B-Type Natriuretic Peptide (test 427.5 pg/mL 0.0-100.0 H code = 72816-6) [facility] Description: Natriuretic peptide B [Mass/volume] in Serum or [id number] 13:54:00 Test Item Value Reference Range Interpretation Comments B-Type Natriuretic Peptide (test 427.5 pg/mL 0.0-100.0 H code = 55760-9) [facility]: Natriuretic peptide B [Mass/volume] in Serum or [id number] 13:54:00 Test Item Value Reference Range Interpretation Comments B-Type Natriuretic Peptide (test 427.5 pg/mL 0.0-100.0 H code = 74462-9) [facility]: Natriuretic peptide B [Mass/volume] in Serum or [id number] 13:54:00 Test Item Value Reference Range Interpretation Comments B-Type Natriuretic Peptide (test 427.5 pg/mL 0.0-100.0 H code = 12151-4) [facility] Description: Natriuretic peptide B [Mass/volume] in Serum or [id number] 13:54:00 Test Item Value Reference Range Interpretation Comments B-Type Natriuretic Peptide (test 427.5 pg/mL 0.0-100.0 H code = 63257-3) [facility] Description: Natriuretic peptide B [Mass/volume] in Serum or [id number] 13:54:00 Test Item Value Reference Range Interpretation Comments B-Type Natriuretic Peptide (test 427.5 pg/mL 0.0-100.0 H code = 00769-7) [facility] Description: Natriuretic peptide B [Mass/volume] in Serum or [id number] 13:54:00 Test Item Value Reference Range Interpretation Comments B-Type Natriuretic Peptide (test 427.5 pg/mL 0.0-100.0 H code = 87961-7) [facility] Description: Natriuretic peptide B [Mass/volume] in Serum or [id number] 13:54:00 Test Item Value Reference Range Interpretation Comments B-Type Natriuretic Peptide (test 427.5 pg/mL 0.0-100.0 H code = 71113-6) [facility] Description: Natriuretic peptide B [Mass/volume] in Serum or [id number] 13:54:00 Test Item Value Reference Range Interpretation Comments B-Type Natriuretic Peptide (test 427.5 pg/mL 0.0-100.0 H code = 93353-9) [facility] Description: Natriuretic peptide B [Mass/volume] in Serum or [id number] 13:54:00 Test Item Value Reference Range Interpretation Comments B-Type Natriuretic Peptide (test 427.5 pg/mL 0.0-100.0 H code = 19373-4) [facility] Description: Natriuretic peptide B [Mass/volume] in Serum or [id number] 13:54:00 Test Item Value Reference Range Interpretation Comments B-Type Natriuretic Peptide (test 427.5 pg/mL 0.0-100.0 H code = 94591-6) [facility] Description: Natriuretic peptide B [Mass/volume] in Serum or [id number] 13:54:00 Test Item Value Reference Range Interpretation Comments B-Type Natriuretic Peptide (test 427.5 pg/mL 0.0-100.0 H code = 53755-3) [facility] Description: Natriuretic peptide B [Mass/volume] in Serum or [id number] 13:54:00 Test Item Value Reference Range Interpretation Comments B-Type Natriuretic Peptide (test 427.5 pg/mL 0.0-100.0 H code = 00050-4) [facility] Description: Natriuretic peptide B [Mass/volume] in Serum or [id number] 13:54:00 Test Item Value Reference Range Interpretation Comments B-Type Natriuretic Peptide (test 427.5 pg/mL 0.0-100.0 H code = 56147-2) [facility] Description: Natriuretic peptide B [Mass/volume] in Serum or [id number] 13:54:00 Test Item Value Reference Range Interpretation Comments B-Type Natriuretic Peptide (test 427.5 pg/mL 0.0-100.0 H code = 92403-8) [facility] Description: Phosphate [Mass/volume] [...] = 2777-1) 4.4 mg/dL 2.8-4.1 H [facility] Description: Phosphate [Mass/volume] in Serum or Plasma 2020-12-04 02:42:00 Test Item Value Reference Range Interpretation Comments Phosphorus (test code = 2777-1) 4.4 mg/dL 2.8-4.1 H [facility] Description: Phosphate [Mass/volume] in Serum or Plasma 2020-12-04 02:42:00 Test Item Value Reference Range Interpretation Comments Phosphorus (test code = 2777-1) 4.4 mg/dL 2.8-4.1 H [facility] Description: Phosphate [Mass/volume] in Serum or Plasma 2020-12-04 02:42:00 Test Item Value Reference Range Interpretation Comments Phosphorus (test code = 2777-1) 4.4 mg/dL 2.8-4.1 H [facility] Description: Phosphate [Mass/volume] in Serum or Plasma 2020-12-04 02:42:00 Test Item Value Reference Range Interpretation Comments Phosphorus (test code = 2777-1) 4.4 mg/dL 2.8-4.1 H [facility] Description: Phosphate [Mass/volume] in Serum or Plasma 2020-12-04 02:42:00 Test Item Value Reference Range Interpretation Comments Phosphorus (test code = 2777-1) 4.4 mg/dL 2.8-4.1 H [facility] Description: Phosphate [Mass/volume] in Serum or Plasma 2020-12-04 02:42:00 Test Item Value Reference Range Interpretation Comments Phosphorus (test code = 2777-1) 4.4 mg/dL 2.8-4.1 H [facility] Description: Phosphate [Mass/volume] in Serum or Plasma 2020-12-04 02:42:00 Test Item Value Reference Range Interpretation Comments Phosphorus (test code = 2777-1) 4.4 mg/dL 2.8-4.1 H [facility] Description: Phosphate [Mass/volume] in Serum or Plasma [...] >59 L Am (test code = mL/min/1.73 93641-1) eGFR If Africn Am 37 >59 L [facility] currently (test code = mL/min/1.73 [place] [address]-8) compliance with the current recommendations of the [employer] Kid[employer]. [facility] [place] will update re porting as new guidelin es are published from the NKF-ASN Task force.
<br/ >Perfor med by:
[facility] [place] ([place])

BUN/Creatinine 22 9-20 H Ratio (test code = 3097-3) Sodium (test code = 142 mmol/L 541-790 4718-2) Potassium (test 4.3 mmol/L 3.5-5.2 code = 2823-3) Chloride (test code 100 mmol/L 96-106 = 5-0) Carbon Dioxide, 28 mmol/L 20-29 Total (test code = 2027-) Calcium (test code 9.2 mg/dL 8.7-10.2 = 33807-6) Protein, Total 6.5 g/dL 6.0-8.5 (test code = 2885-2) Albumin (test code 3.5 g/dL 4.0-5.0 L = 1750-7) Globulin, Total 3.0 g/dL 1.5-4.5 (test code = 54529-7) A/G Ratio (test 1.2 1.2-2.2 code = [...] 44 - 121

Pe rformed by:
[facility] [place] ([place])

AST (SGOT) (test 20 IU/L 0-40 code = 1920-8) ALT (SGPT) (test 22 IU/L 0-44 code = 1742-6) [facility] Description: Comp. Metabolic Panel (14)2020-12-04 02:12:00 Test Item Value Reference Range Interpretation Comments Glucose (test code 315 mg/dL 65-99 H = 2345-7) BUN (test code = 52 mg/dL 6-24 H 3094-0) Creatinine (test 2.32 mg/dL 0.76-1.27 H code = 2160-0) eGFR If NonAfricn 32 >59 L Am (test code = mL/min/1.73 47847-5) eGFR If Africn Am 37 >59 L [facility] currently (test code = mL/min/1.73 [place] 07779-2) compliance with the current recommendations of the [employer] Kid[employer]. [facility] [place] will update re porting as new guidelin es are published from the NKF-ASN Task force.
<br/ >Perfor med by:
[facility] ([place])

BUN/Creatinine 22 9-20 H Ratio (test code = 3097-3) Sodium (test code = 142 mmol/L 443-764 0525-2) Potassium (test 4.3 mmol/L 3.5-5.2 code = 2823-3) Chloride (test code 100 mmol/L 96-106 = 2075-0) Carbon Dioxide, 28 mmol/L 20-29 Total (test code = 2027-) Calcium (test code 9.2 mg/dL 8.7-10.2 = 96498-8) Protein, Total 6.5 g/dL 6.0-8.5 (test code = 2885-2) Albumin (test code 3.5 g/dL 4.0-5.0 L = 1751-7) Globulin, Total 3.0 g/dL 1.5-4.5 (test code = 02851-4) A/G Ratio (test 1.2 1.2-2.2 code = [...] 22 IU/L 0-44 code = 1742-6) [facility] Description: Comp. Metabolic Panel (14)2020-12-04 02:12:00 Test Item Value Reference Range Interpretation Comments Glucose (test code 315 mg/dL 65-99 H = 2345-7) BUN (test code = 52 mg/dL 6-24 H 3094-0) Creatinine (test 2.32 mg/dL 0.76-1.27 H code = 2160-0) eGFR If NonAfricn 32 >59 L Am (test code = mL/min/1.73 80206-3) eGFR If Africn Am 37 >59 L [facility] currently (test code = mL/min/1.73 [place] 61446-2) compliance with the current recommendations of the [employer] Kid[employer]. [facility] [place] will update re porting as new guidelin es are published from the NKF-ASN Task force.
<br/ >Perfor med by:
[facility] ([place])

BUN/Creatinine 22 9-20 H Ratio (test code = 3097-3) Sodium (test code = 142 mmol/L 136-273 9356-2) Potassium (test 4.3 mmol/L 3.5-5.2 code = 2823-3) Chloride (test code 100 mmol/L 96-106 = 5-0) Carbon Dioxide, 28 mmol/L 20-29 Total (test code = 2027-) Calcium (test code 9.2 mg/dL 8.7-10.2 = 09626-8) Protein, Total 6.5 g/dL 6.0-8.5 (test code = 2885-2) Albumin (test code 3.5 g/dL 4.0-5.0 L = 175-7) Globulin, Total 3.0 g/dL 1.5-4.5 (test code = 33964-7) A/G Ratio (test 1.2 1.2-2.2 code = [...] 22 IU/L 0-44 code = 1742-6) [facility] Description: Comp. Metabolic Panel (14)2020-12-04 02:12:00 Test Item Value Reference Range Interpretation Comments Glucose (test code 315 mg/dL 65-99 H = 2345-7) BUN (test code = 52 mg/dL 6-24 H 3094-0) Creatinine (test 2.32 mg/dL 0.76-1.27 H code = 2160-0) eGFR If NonAfricn 32 >59 L Am (test code = mL/min/1.73 19557-4) eGFR If Africn Am 37 >59 L [facility] currently (test code = mL/min/1.73 [place] 14079-2) compliance with the current recommendations of the [employer] Kid[employer]. [facility] [place] will update re porting as new guidelin es are published from the NKF-ASN Task force.
<br/ >Perfor med by:
[facility] ([place])

BUN/Creatinine 22 9-20 H Ratio (test code = 3097-3) Sodium (test code = 142 mmol/L 199-961 6083-2) Potassium (test 4.3 mmol/L 3.5-5.2 code = 2823-3) Chloride (test code 100 mmol/L 96-106 = 2075-0) Carbon Dioxide, 28 mmol/L 20-29 Total (test code = 2027-) Calcium (test code 9.2 mg/dL 8.7-10.2 = 30647-0) Protein, Total 6.5 g/dL 6.0-8.5 (test code = 2885-2) Albumin (test code 3.5 g/dL 4.0-5.0 L = 1751-7) Globulin, Total 3.0 g/dL 1.5-4.5 (test code = 89031-2) A/G Ratio (test 1.2 1.2-2.2 code = [...] 22 IU/L 0-44 code = 1742-6) [facility] Description: Comp. Metabolic Panel (14)2020-12-04 02:12:00 Test Item Value Reference Range Interpretation Comments Glucose (test code 315 mg/dL 65-99 H = 2345-7) BUN (test code = 52 mg/dL 6-24 H 3094-0) Creatinine (test 2.32 mg/dL 0.76-1.27 H code = 2160-0) eGFR If NonAfricn 32 >59 L Am (test code = mL/min/1.73 70693-8) eGFR If Africn Am 37 >59 L [facility] currently (test code = mL/min/1.73 [place] 25667-6) compliance with the current recommendations of the [employer] Kid[employer]. [facility] [place] will update re porting as new guidelin es are published from the NKF-ASN Task force.
<br/ >Perfor med by:
[facility] ([place])

BUN/Creatinine 22 9-20 H Ratio (test code = 3097-3) Sodium (test code = 142 mmol/L 690-983 7456-2) Potassium (test 4.3 mmol/L 3.5-5.2 code = 2823-3) Chloride (test code 100 mmol/L 96-106 = 2074-0) Carbon Dioxide, 28 mmol/L 20-29 Total (test code = 2027-) Calcium (test code 9.2 mg/dL 8.7-10.2 = 01827-5) Protein, Total 6.5 g/dL 6.0-8.5 (test code = 2885-2) Albumin (test code 3.5 g/dL 4.0-5.0 L = 175-7) Globulin, Total 3.0 g/dL 1.5-4.5 (test code = 08856-3) A/G Ratio (test 1.2 1.2-2.2 code = [...] 44 - 121

Pe rformed by:
[facility] [place] ([place])

AST (SGOT) (test 20 IU/L 0-40 [...] >59 L Am (test code = mL/min/1.73 89146-6) eGFR If Africn Am 37 >59 L [facility] currently (test code = mL/min/1.73 [place] 57413-2) compliance with the current recommendations of the National Kidney [employer]. [facility] [place] will update re porting as new guidelin es are published from the NKF-ASN Task force.
<br/ >Perfor med by:
[facility] ([place])

BUN/Creatinine 22 9-20 H Ratio (test code = 3097-3) Sodium (test code = 142 mmol/L 147-531 8771-2) Potassium (test 4.3 mmol/L 3.5-5.2 code = 2823-3) Chloride (test code 100 mmol/L 96-106 = 2075-0) Carbon Dioxide, 28 mmol/L 20-29 Total (test code = 2027-) Calcium (test code 9.2 mg/dL 8.7-10.2 = 20223-6) Protein, Total 6.5 g/dL 6.0-8.5 (test code = 2885-2) Albumin (test code 3.5 g/dL 4.0-5.0 L = 1751-7) Globulin, Total 3.0 g/dL 1.5-4.5 (test code = 03006-0) A/G Ratio (test 1.2 1.2-2.2 code = [...] 22 IU/L 0-44 code = 1742-6) [facility] Description: Comp. Metabolic Panel (14)2020-12-04 02:12:00 Test Item Value Reference Range Interpretation Comments Glucose (test code 315 mg/dL 65-99 H = 2345-7) BUN (test code = 52 mg/dL 6-24 H 3094-0) Creatinine (test 2.32 mg/dL 0.76-1.27 H code = 2160-0) eGFR If NonAfricn 32 >59 L Am (test code = mL/min/1.73 08631-4) eGFR If Africn Am 37 >59 L [facility] currently (test code = mL/min/1.73 [place] 53679-8) compliance with the current recommendations of the [employer] Kid[employer] Foundation. [facility] [place] will update re porting as new guidelin es are published from the NKF-ASN Task force.
<br/ >Perfor med by:
[facility] ([place])

BUN/Creatinine 22 9-20 H Ratio (test code = 3097-3) Sodium (test code = 142 mmol/L 300-227 8859-2) Potassium (test 4.3 mmol/L 3.5-5.2 code = 2823-3) Chloride (test code 100 mmol/L 96-106 = 5-0) Carbon Dioxide, 28 mmol/L 20-29 Total (test code = 2027-11) Calcium (test code 9.2 mg/dL 8.7-10.2 = 17504-7) Protein, Total 6.5 g/dL 6.0-8.5 (test code = 2885-2) Albumin (test code 3.5 g/dL 4.0-5.0 L = 175-7) Globulin, Total 3.0 g/dL 1.5-4.5 (test code = 78894-7) A/G Ratio (test 1.2 1.2-2.2 code = [...] >59 L Am (test code = mL/min/1.73 73015-6) eGFR If Africn Am 37 >59 L [facility] currently (test code = mL/min/1.73 [place] 35151-8) compliance with the current recommendations of the National Kid[employer] Foundation. [facility] [place] will update re porting as new guidelin es are published from the NKF-ASN Task force.
<br/ >Perfor med by:
[facility] ([place])

BUN/Creatinine 22 9-20 H Ratio (test code = 3097-3) Sodium (test code = 142 mmol/L 560-528 5093-2) Potassium (test 4.3 mmol/L 3.5-5.2 code = 2823-3) Chloride (test code 100 mmol/L 96-106 = 2075-0) Carbon Dioxide, 28 mmol/L 20-29 Total (test code = 2027-) Calcium (test code 9.2 mg/dL 8.7-10.2 = 10243-2) Protein, Total 6.5 g/dL 6.0-8.5 (test code = 2885-2) Albumin (test code 3.5 g/dL 4.0-5.0 L = 1751-7) Globulin, Total 3.0 g/dL 1.5-4.5 (test code = 09661-3) A/G Ratio (test 1.2 1.2-2.2 code = [...] 44 - 121

Pe rformed by:
[facility] [place] ([place])

AST (SGOT) (test 20 IU/L 0-40 code = 1920-8) ALT (SGPT) (test 22 IU/L 0-44 code = 1742-6) [facility]: Comp. Metabolic Panel (14)2020-12-04 02:12:00 Test Item Value Reference Range Interpretation Comments Glucose (test code 315 mg/dL 65-99 H = 2345-7) BUN (test code = 52 mg/dL 6-24 H 3094-0) Creatinine (test 2.32 mg/dL 0.76-1.27 H code = 2160-0) eGFR If NonAfricn 32 >59 L Am (test code = mL/min/1.73 48571-1) eGFR If Africn Am 37 >59 L [facility] currently (test code = mL/min/1.73 [place] 73856-8) compliance with the current recommendations of the [employer] Kidney Foundation. [facility] [place] will update re porting as new guidelin es are published from the NKF-ASN Task force.
<br/ >Perfor med by:
[facility] [place] ([place])

BUN/Creatinine 22 9-20 H Ratio (test code = 3097-3) Sodium (test code = 142 mmol/L 473-301 8544-2) Potassium (test 4.3 mmol/L 3.5-5.2 code = 2823-3) Chloride (test code 100 mmol/L 96-106 = 2075-0) Carbon Dioxide, 28 mmol/L 20-29 Total (test code = 2027-) Calcium (test code 9.2 mg/dL 8.7-10.2 = 89769-2) Protein, Total 6.5 g/dL 6.0-8.5 (test code = 2885-2) Albumin (test code 3.5 g/dL 4.0-5.0 L = 1751-7) Globulin, Total 3.0 g/dL 1.5-4.5 (test code = 87046-8) A/G Ratio (test 1.2 1.2-2.2 code = [...] >59 L Am (test code = mL/min/1.73 38243-2) eGFR If Africn Am 37 >59 L [facility] currently (test code = mL/min/1.73 [place] 39986-6) compliance with the current recommendations of the [employer] Kid[employer]. [facility] [place] will update re porting as new guidelin es are published from the NKF-ASN Task force.
<br/ >Perfor med by:
[facility] ([place])

BUN/Creatinine 22 9-20 H Ratio (test code = 3097-3) Sodium (test code = 142 mmol/L 781-938 3816-2) Potassium (test 4.3 mmol/L 3.5-5.2 code = 2823-3) Chloride (test code 100 mmol/L 96-106 = 2075-0) Carbon Dioxide, 28 mmol/L 20-29 Total (test code = 2027-9) Calcium (test code 9.2 mg/dL 8.7-10.2 = 30916-3) Protein, Total 6.5 g/dL 6.0-8.5 (test code = 2885-2) Albumin (test code 3.5 g/dL 4.0-5.0 L = 1751-7) Globulin, Total 3.0 g/dL 1.5-4.5 (test code = 15594-7) A/G Ratio (test 1.2 1.2-2.2 code = [...] 44 - 121

Pe rformed by:
[facility] [place] ([place])

AST (SGOT) (test 20 IU/L 0-40 code = 1920-8) ALT (SGPT) (test 22 IU/L 0-44 code = 1742-6) [facility] Description: Comp. Metabolic Panel (14)2020-12-04 02:12:00 Test Item Value Reference Range Interpretation Comments Glucose (test code 315 mg/dL 65-99 H = 2345-7) BUN (test code = 52 mg/dL 6-24 H 3094-0) Creatinine (test 2.32 mg/dL 0.76-1.27 H code = 2160-0) eGFR If NonAfricn 32 >59 L Am (test code = mL/min/1.73 50059-2) eGFR If Africn Am 37 >59 L [facility] currently (test code = mL/min/1.73 [place] 33113-6) compliance with the current recommendations of the [employer] Kid[employer]. [facility] [place] will update re porting as new guidelin es are published from the NKF-ASN Task force.
<br/ >Perfor med by:
[facility] ([place])

BUN/Creatinine 22 9-20 H Ratio (test code = 3097-3) Sodium (test code = 142 mmol/L 162-301 1236-2) Potassium (test 4.3 mmol/L 3.5-5.2 code = 2823-3) Chloride (test code 100 mmol/L 96-106 = 2075-0) Carbon Dioxide, 28 mmol/L 20-29 Total (test code = 2027-) Calcium (test code 9.2 mg/dL 8.7-10.2 = 07480-1) Protein, Total 6.5 g/dL 6.0-8.5 (test code = 2885-2) Albumin (test code 3.5 g/dL 4.0-5.0 L = 1751-7) Globulin, Total 3.0 g/dL 1.5-4.5 (test code = 67344-8) A/G Ratio (test 1.2 1.2-2.2 code = [...] 44 - 121

Pe rformed by:
[facility] [place] ([place])

AST (SGOT) (test 20 IU/L 0-40 code = 1920-8) ALT (SGPT) (test 22 IU/L 0-44 code = 1742-6) [facility] Description: Comp. Metabolic Panel (14)2020-12-04 02:12:00 Test Item Value Reference Range Interpretation Comments Glucose (test code 315 mg/dL 65-99 H = 2345-7) BUN (test code = 52 mg/dL 6-24 H 3094-0) Creatinine (test 2.32 mg/dL 0.76-1.27 H code = 2160-0) eGFR If NonAfricn 32 >59 L Am (test code = mL/min/1.73 55482-2) eGFR If Africn Am 37 >59 L [facility] currently (test code = mL/min/1.73 [place] 79957-0) compliance with the current recommendations of the [employer] Kid[employer]. [facility] [place] will update re porting as new guidelin es are published from the NKF-ASN Task force.
<br/ >Perfor med by:
[facility] ([place])

BUN/Creatinine 22 9-20 H Ratio (test code = 3097-3) Sodium (test code = 142 mmol/L 887-248 6284-2) Potassium (test 4.3 mmol/L 3.5-5.2 code = 2823-3) Chloride (test code 100 mmol/L 96-106 = 2075-0) Carbon Dioxide, 28 mmol/L 20-29 Total (test code = 2027-) Calcium (test code 9.2 mg/dL 8.7-10.2 = 38412-3) Protein, Total 6.5 g/dL 6.0-8.5 (test code = 2885-2) Albumin (test code 3.5 g/dL 4.0-5.0 L = 1751-7) Globulin, Total 3.0 g/dL 1.5-4.5 (test code = 60470-4) A/G Ratio (test 1.2 1.2-2.2 code = [...] 44 - 121

Pe rformed by:
[facility] [place] ([place])

AST (SGOT) (test 20 IU/L 0-40 code = 1920-8) ALT (SGPT) (test 22 IU/L 0-44 code = 1742-6) [facility] Description: Comp. Metabolic Panel (14)2020-12-04 02:12:00 Test Item Value Reference Range Interpretation Comments Glucose (test code 315 mg/dL 65-99 H = 2345-7) BUN (test code = 52 mg/dL 6-24 H 3094-0) Creatinine (test 2.32 mg/dL 0.76-1.27 H code = 2160-0) eGFR If NonAfricn 32 >59 L Am (test code = mL/min/1.73 71226-7) eGFR If Africn Am 37 >59 L [facility] currently (test code = mL/min/1.73 [place] 43536-2) compliance with the current recommendations of the [employer] Kid[employer]. [facility] [place] will update re porting as new guidelin es are published from the NKF-ASN Task force.
<br/ >Perfor med by:
[facility] [place] ([place])

BUN/Creatinine 22 9-20 H Ratio (test code = 3097-3) Sodium (test code = 142 mmol/L 562-059 4817-2) Potassium (test 4.3 mmol/L 3.5-5.2 code = 2823-3) Chloride (test code 100 mmol/L 96-106 = 2075-0) Carbon Dioxide, 28 mmol/L 20-29 Total (test code = 2027-) Calcium (test code 9.2 mg/dL 8.7-10.2 = 07089-0) Protein, Total 6.5 g/dL 6.0-8.5 (test code = 2885-2) Albumin (test code 3.5 g/dL 4.0-5.0 L = 1751-7) Globulin, Total 3.0 g/dL 1.5-4.5 (test code = 48368-7) A/G Ratio (test 1.2 1.2-2.2 code = [...] 44 - 121

Pe rformed by:
[facility] [place] ([place])

AST (SGOT) (test 20 IU/L 0-40 code = 1920-8) ALT (SGPT) (test 22 IU/L 0-44 code = 1742-6) [facility]: Comp. Metabolic Panel (14)2020-12-04 02:12:00 Test Item Value Reference Range Interpretation Comments Glucose (test code 315 mg/dL 65-99 H = 2345-7) BUN (test code = 52 mg/dL 6-24 H 3094-0) Creatinine (test 2.32 mg/dL 0.76-1.27 H code = 2160-0) eGFR If NonAfricn 32 >59 L Am (test code = mL/min/1.73 11523-6) eGFR If Africn Am 37 >59 L [facility] currently (test code = mL/min/1.73 [place] [address]-9) compliance with the current recommendations of the [employer]. [facility] [place] will update re porting as new guidelin es are published from the NKF-ASN Task force.
<br/ >Perfor med by:
[facility] ([place])

BUN/Creatinine 22 9-20 H Ratio (test code = 3097-3) Sodium (test code = 142 mmol/L 052-633 2679-2) Potassium (test 4.3 mmol/L 3.5-5.2 code = 2823-3) Chloride (test code 100 mmol/L 96-106 = 2075-0) Carbon Dioxide, 28 mmol/L 20-29 Total (test code = 2027-) Calcium (test code 9.2 mg/dL 8.7-10.2 = 07922-3) Protein, Total 6.5 g/dL 6.0-8.5 (test code = 2885-2) Albumin (test code 3.5 g/dL 4.0-5.0 L = 1751-7) Globulin, Total 3.0 g/dL 1.5-4.5 (test code = 65725-7) A/G Ratio (test 1.2 1.2-2.2 code = [...] 44 - 121

Pe rformed by:
[facility] [place] ([place])

AST (SGOT) (test 20 IU/L 0-40 code = 1920-8) ALT (SGPT) (test 22 IU/L 0-44 code = 1742-6) [facility]: Comp. Metabolic Panel (14)2020-12-04 02:12:00 Test Item Value Reference Range Interpretation Comments Glucose (test code 315 mg/dL 65-99 H = 2345-7) BUN (test code = 52 mg/dL 6-24 H 3094-0) Creatinine (test 2.32 mg/dL 0.76-1.27 H code = 2160-0) eGFR If NonAfricn 32 >59 L Am (test code = mL/min/1.73 53810-5) eGFR If Africn Am 37 >59 L [facility] currently (test code = mL/min/1.73 [place] 78150-4) compliance with the current recommendations of the [employer]. [facility] [place] will update re porting as new guidelin es are published from the [facility]F-ASN Task force.
<br/ >Perfor med by:
[facility] [place] ([place])

BUN/Creatinine 22 9-20 H Ratio (test code = 3097-3) Sodium (test code = 142 mmol/L 569-819 2845-2) Potassium (test 4.3 mmol/L 3.5-5.2 code = 2823-3) Chloride (test code 100 mmol/L 96-106 = 2075-0) Carbon Dioxide, 28 mmol/L 20-29 Total (test code = 2027-) Calcium (test code 9.2 mg/dL 8.7-10.2 = 04814-9) Protein, Total 6.5 g/dL 6.0-8.5 (test code = 2885-2) Albumin (test code 3.5 g/dL 4.0-5.0 L = 1751-7) Globulin, Total 3.0 g/dL 1.5-4.5 (test code = 89331-9) A/G Ratio (test 1.2 1.2-2.2 code = [...] 44 - 121

Pe rformed by:
[facility] [place] ([place])

AST (SGOT) (test 20 IU/L 0-40 code = 1920-8) ALT (SGPT) (test 22 IU/L 0-44 code = 1742-6) [facility]: Comp. Metabolic Panel (14)2020-12-04 02:12:00 Test Item Value Reference Range Interpretation Comments Glucose (test code 315 mg/dL 65-99 H = 2345-7) BUN (test code = 52 mg/dL 6-24 H 3094-0) Creatinine (test 2.32 mg/dL 0.76-1.27 H code = 2160-0) eGFR If NonAfricn 32 >59 L Am (test code = mL/min/1.73 98212-0) eGFR If Africn Am 37 >59 L [facility] currently (test code = mL/min/1.73 [place] 22824-7) compliance with the current recommendations of the [employer]. [facility] [place] will update re porting as new guidelin es are published from the NKF-ASN Task force.
<br/ >Perfor med by:
[facility] (HD)

BUN/Creatinine 22 9-20 H Ratio (test code = 3097-3) Sodium (test code = 142 mmol/L 378-383 6563-2) Potassium (test 4.3 mmol/L 3.5-5.2 code = 2823-3) Chloride (test code 100 mmol/L 96-106 = 2075-0) Carbon Dioxide, 28 mmol/L 20-29 Total (test code = 2027-) Calcium (test code 9.2 mg/dL 8.7-10.2 = 09579-6) Protein, Total 6.5 g/dL 6.0-8.5 (test code = 2885-2) Albumin (test code 3.5 g/dL 4.0-5.0 L = 1751-7) Globulin, Total 3.0 g/dL 1.5-4.5 (test code = 99041-8) A/G Ratio (test 1.2 1.2-2.2 code = [...] 44 - 121

Pe rformed by:
[facility] [place] ([place])

AST (SGOT) (test 20 IU/L 0-40 code = 1920-8) ALT (SGPT) (test 22 IU/L 0-44 code = 1742-6) [facility] Description: Comp. Metabolic Panel (14)2020-12-04 02:12:00 Test Item Value Reference Range Interpretation Comments Glucose (test code 315 mg/dL 65-99 H = 2345-7) BUN (test code = 52 mg/dL 6-24 H 3094-0) Creatinine (test 2.32 mg/dL 0.76-1.27 H code = 2160-0) eGFR If NonAfricn 32 >59 L Am (test code = mL/min/1.73 36560-4) eGFR If Africn Am 37 >59 L [facility] currently (test code = mL/min/1.73 [place] [address]-6) compliance with the current recommendations of the [employer]. [facility] [place] will update re porting as new guidelin es are published from the NKF-ASN Task force.
<br/ >Perfor med by:
[facility] [place] (HD)

BUN/Creatinine 22 9-20 H Ratio (test code = 3097-3) Sodium (test code = 142 mmol/L 746-157 5581-2) Potassium (test 4.3 mmol/L 3.5-5.2 code = 2823-3) Chloride (test code 100 mmol/L 96-106 = 2075-0) Carbon Dioxide, 28 mmol/L 20-29 Total (test code = 2027-) Calcium (test code 9.2 mg/dL 8.7-10.2 = 67842-3) Protein, Total 6.5 g/dL 6.0-8.5 (test code = 2885-2) Albumin (test code 3.5 g/dL 4.0-5.0 L = 1751-7) Globulin, Total 3.0 g/dL 1.5-4.5 (test code = 80335-5) A/G Ratio (test 1.2 1.2-2.2 code = [...] 22 IU/L 0-44 code = 1742-6) [facility] Description: Comp. Metabolic Panel (14)2020-12-04 02:12:00 Test Item Value Reference Range Interpretation Comments Glucose (test code 315 mg/dL 65-99 H = 2345-7) BUN (test code = 52 mg/dL 6-24 H 3094-0) Creatinine (test 2.32 mg/dL 0.76-1.27 H code = 2160-0) eGFR If NonAfricn 32 >59 L Am (test code = mL/min/1.73 84292-1) eGFR If Africn Am 37 >59 L [facility] currently (test code = mL/min/1.73 [place] eGFR in 27416-4) compliance with the current recommendations of the [employer]. [facility] [place] will update re porting as new guidelin es are published from the NKF-ASN Task force.
<br/ >Perfor med by:
[facility] [place] ([place])

BUN/Creatinine 22 9-20 H Ratio (test code = 3097-3) Sodium (test code = 142 mmol/L 378-473 9539-2) Potassium (test 4.3 mmol/L 3.5-5.2 code = 2823-3) Chloride (test code 100 mmol/L 96-106 = 2075-0) Carbon Dioxide, 28 mmol/L 20-29 Total (test code = 2027-) Calcium (test code 9.2 mg/dL 8.7-10.2 = 21959-1) Protein, Total 6.5 g/dL 6.0-8.5 (test code = 2885-2) Albumin (test code 3.5 g/dL 4.0-5.0 L = 1751-7) Globulin, Total 3.0 g/dL 1.5-4.5 (test code = 67771-2) A/G Ratio (test 1.2 1.2-2.2 code = [...] 22 IU/L 0-44 code = 1742-6) [facility] Description: Natriuretic peptide B [Mass/volume] in Serum or Fxeomr2365-44-17 14:32:00 Test Item Value Reference Range Interpretation Comments B-Type Natriuretic Peptide (test 682.3 pg/mL 0.0-100.0 H code = 03930-7) [facility] Description: Natriuretic peptide B [Mass/volume] in Serum or Egjryd5125-34-26 14:32:00 Test Item Value Reference Range Interpretation Comments B-Type Natriuretic Peptide (test 682.3 pg/mL 0.0-100.0 H code = 98107-3) [facility] Description: Natriuretic peptide B [Mass/volume] in Serum or [id number] 14:32:00 Test Item Value Reference Range Interpretation Comments B-Type Natriuretic Peptide (test 682.3 pg/mL 0.0-100.0 H code = 56869-9) [facility] Description: Natriuretic peptide B [Mass/volume] in Serum or [id number] 14:32:00 Test Item Value Reference Range Interpretation Comments B-Type Natriuretic Peptide (test 682.3 pg/mL 0.0-100.0 H code = 15662-4) [facility] Description: Natriuretic peptide B [Mass/volume] in Serum or Cvfypg2132-95-72 14:32:00 Test Item Value Reference Range Interpretation Comments B-Type Natriuretic Peptide (test 682.3 pg/mL 0.0-100.0 H code = 51391-1) [facility] Description: Natriuretic peptide B [Mass/volume] in Serum or Ouzaxg7802-42-33 14:32:00 Test Item Value Reference Range Interpretation Comments B-Type Natriuretic Peptide (test 682.3 pg/mL 0.0-100.0 H code = 40447-1) [facility] Description: Natriuretic peptide B [Mass/volume] in Serum or Vpwcuc3701-18-73 14:32:00 Test Item Value Reference Range Interpretation Comments B-Type Natriuretic Peptide (test 682.3 pg/mL 0.0-100.0 H code = 80854-1) [facility] Description: Natriuretic peptide B [Mass/volume] in Serum or Zkrvrc0653-81-86 14:32:00 Test Item Value Reference Range Interpretation Comments B-Type Natriuretic Peptide (test 682.3 pg/mL 0.0-100.0 H code = 30005-0) [facility] Description: Natriuretic peptide B [Mass/volume] in Serum or Fzklxe5292-69-05 14:32:00 Test Item Value Reference Range Interpretation Comments B-Type Natriuretic Peptide (test 682.3 pg/mL 0.0-100.0 H code = 94632-9) [facility] Description: Natriuretic peptide B [Mass/volume] in Serum or Rzkhhh9980-11-45 14:32:00 Test Item Value Reference Range Interpretation Comments B-Type Natriuretic Peptide (test 682.3 pg/mL 0.0-100.0 H code = 50511-5) [facility] Description: Natriuretic peptide B [Mass/volume] in Serum or [id number] 14:32:00 Test Item Value Reference Range Interpretation Comments B-Type Natriuretic Peptide (test 682.3 pg/mL 0.0-100.0 H code = 69591-7) [facility] Description: Natriuretic peptide B [Mass/volume] in Serum or Zbuvsq9444-06-29 14:32:00 Test Item Value Reference Range Interpretation Comments B-Type Natriuretic Peptide (test 682.3 pg/mL 0.0-100.0 H code = 62052-8) [facility] Description: Natriuretic peptide B [Mass/volume] in Serum or [id number] 14:32:00 Test Item Value Reference Range Interpretation Comments B-Type Natriuretic Peptide (test 682.3 pg/mL 0.0-100.0 H code = 68557-3) [facility] Description: Natriuretic peptide B [Mass/volume] in Serum or [id number] 14:32:00 Test Item Value Reference Range Interpretation Comments B-Type Natriuretic Peptide (test 682.3 pg/mL 0.0-100.0 H code = 53782-9) [facility] Description: Natriuretic peptide B [Mass/volume] in Serum or Hghatg4758-29-08 14:32:00 Test Item Value Reference Range Interpretation Comments B-Type Natriuretic Peptide (test 682.3 pg/mL 0.0-100.0 H code = 38032-8) [facility] Description: Natriuretic peptide B [Mass/volume] in Serum or Xrzqcd8440-82-04 14:32:00 Test Item Value Reference Range Interpretation Comments B-Type Natriuretic Peptide (test 682.3 pg/mL 0.0-100.0 H code = 57839-2) [facility] Description: Natriuretic peptide B [Mass/volume] in Serum or Ozpmzl3318-74-38 14:32:00 Test Item Value Reference Range Interpretation Comments B-Type Natriuretic Peptide (test 682.3 pg/mL 0.0-100.0 H code = 97625-0) [facility] Description: Natriuretic peptide B [Mass/volume] in Serum or Rxqhjm8818-19-33 14:32:00 Test Item Value Reference Range Interpretation Comments B-Type Natriuretic Peptide (test 682.3 pg/mL 0.0-100.0 H code = 70403-4) [facility] Description: Natriuretic peptide B [Mass/volume] in Serum or Mjimvw4831-79-53 14:32:00 Test Item Value Reference Range Interpretation Comments B-Type Natriuretic Peptide (test 682.3 pg/mL 0.0-100.0 H code = 10451-1) [facility] Description: Natriuretic peptide B [Mass/volume] in Serum or [id number] 14:32:00 Test Item Value Reference Range Interpretation Comments B-Type Natriuretic Peptide (test 682.3 pg/mL 0.0-100.0 H code = 90928-8) [facility] Description: Parathyrin.intact [Mass/volume] in Serum or Dhkgbm4553-55-42 08:48:00 Test Item Value Reference Range Interpretation Comments PTH, Intact (test code = 2731-8) 147 pg/mL 15-65 H [facility] Description: Parathyrin.intact [Mass/volume] in Serum or Htxykv2445-12-98 08:48:00 Test Item Value Reference Range Interpretation Comments PTH, Intact (test code = 2731-8) 147 pg/mL 15-65 H [facility] Description: Parathyrin.intact [Mass/volume] in Serum or Efczoj1458-54-62 08:48:00 Test Item Value Reference Range Interpretation Comments PTH, Intact (test code = 2731-8) 147 pg/mL 15-65 H [facility] Description: Parathyrin.intact [Mass/volume] in Serum or Orazgc2737-85-89 08:48:00 Test Item Value Reference Range Interpretation Comments PTH, Intact (test code = 2731-8) 147 pg/mL 15-65 H [facility] Description: Parathyrin.intact [Mass/volume] in Serum or Hghgxq8518-53-92 08:48:00 Test Item Value Reference Range Interpretation Comments PTH, Intact (test code = 2731-8) 147 pg/mL 15-65 H [facility] Description: Parathyrin.intact [Mass/volume] in Serum or Yzpemp3520-80-51 08:48:00 Test Item Value Reference Range Interpretation Comments PTH, Intact (test code = 2731-8) 147 pg/mL 15-65 H [facility] Description: Parathyrin.intact [Mass/volume] in Serum or Qxsewx5332-08-90 08:48:00 Test Item Value Reference Range Interpretation Comments PTH, Intact (test code = 2731-8) 147 pg/mL 15-65 H [facility] Description: Parathyrin.intact [Mass/volume] in Serum or Dmxrlg1777-38-21 08:48:00 Test Item Value Reference Range Interpretation Comments PTH, Intact (test code = 2731-8) 147 pg/mL 15-65 H [facility] Description: Parathyrin.intact [Mass/volume] in Serum or Xrfylp2782-00-50 08:48:00 Test Item Value Reference Range Interpretation Comments PTH, Intact (test code = 2731-8) 147 pg/mL 15-65 H [facility] Description: Parathyrin.intact [Mass/volume] in Serum or Cdaqum1777-23-46 08:48:00 Test Item Value Reference Range Interpretation Comments PTH, Intact (test code = 2731-8) 147 pg/mL 15-65 H [facility] Description: Parathyrin.intact [Mass/volume] in Serum or Lxqzor7890-95-73 08:48:00 Test Item Value Reference Range Interpretation Comments PTH, Intact (test code = 2731-8) 147 pg/mL 15-65 H [facility] Description: Parathyrin.intact [Mass/volume] in Serum or Rclmff0433-38-06 08:48:00 Test Item Value Reference Range Interpretation Comments PTH, Intact (test code = 2731-8) 147 pg/mL 15-65 H [facility] Description: Parathyrin.intact [Mass/volume] in Serum or Dkjmvo6029-59-34 08:48:00 Test Item Value Reference Range Interpretation Comments PTH, Intact (test code = 2731-8) 147 pg/mL 15-65 H [facility] Description: Parathyrin.intact [Mass/volume] in Serum or Wceuxk0523-01-27 08:48:00 Test Item Value Reference Range Interpretation Comments PTH, Intact (test code = 2731-8) 147 pg/mL 15-65 H [facility] Description: Parathyrin.intact [Mass/volume] in Serum or Ctjohl9938-34-86 08:48:00 Test Item Value Reference Range Interpretation Comments PTH, Intact (test code = 2731-8) 147 pg/mL 15-65 H [facility] Description: Parathyrin.intact [Mass/volume] in Serum or Dgpwsk2242-70-36 08:48:00 Test Item Value Reference Range Interpretation Comments PTH, Intact (test code = 2731-8) 147 pg/mL 15-65 H [facility] Description: Parathyrin.intact [Mass/volume] in Serum or Btwthe4257-29-55 08:48:00 Test Item Value Reference Range Interpretation Comments PTH, Intact (test code = 2731-8) 147 pg/mL 15-65 H [facility] Description: Parathyrin.intact [Mass/volume] in Serum or Fbuuuf5168-32-78 08:48:00 Test Item Value Reference Range Interpretation Comments PTH, Intact (test code = 2731-8) 147 pg/mL 15-65 H [facility] Description: Parathyrin.intact [Mass/volume] in Serum or Muyxbk0883-06-11 08:48:00 Test Item Value Reference Range Interpretation Comments PTH, Intact (test code = 2731-8) 147 pg/mL 15-65 H [facility] Description: Parathyrin.intact [Mass/volume] in Serum or Kskxhk6400-98-64 08:48:00 Test Item Value Reference Range Interpretation [...] with diabetes: <7.0

P erformed by:
[facility] ([place])

[facility] Description: Hemoglobin A1c/Hemoglobin.total in Blood 2020-10-30 05:01:00 Test Item Value Reference Range Interpretation Comments Hemoglobin A1c (test code 8.4 % 4.8-5.6 H = 4548-4) . Prediabetes: 5. 7 - 6.4 Diabetes : >6.4 Glycemic control for adults with diabetes: <7.0

P erformed by:
[facility] ([place])

[facility] Description: Hemoglobin A1c/Hemoglobin.total in Blood 2020-10-30 05:01:00 Test Item Value Reference Range Interpretation Comments Hemoglobin A1c (test code 8.4 % 4.8-5.6 H = 4548-4) . Prediabetes: 5. 7 - 6.4 Diabetes : >6.4 Glycemic control for adults with diabetes: <7.0

P erformed by:
[facility] ([place])

[facility] Description: Hemoglobin A1c/Hemoglobin.total in [...] with diabetes: <7.0

P erformed by:
[facility] [place] ()

[facility] Description: Hemoglobin A1c/Hemoglobin.total in Blood 2020-10-30 05:01:00 Test Item Value Reference Range Interpretation Comments Hemoglobin A1c (test code 8.4 % 4.8-5.6 H = 4548-4) . Prediabetes: 5. 7 - 6.4 Diabetes : >6.4 Glycemic control for adults with diabetes: <7.0

P erformed by:
[facility] [place] ()

[facility] Description: Hemoglobin A1c/Hemoglobin.total in Blood 2020-10-30 05:01:00 Test Item Value Reference Range Interpretation Comments Hemoglobin A1c (test code 8.4 % 4.8-5.6 H = 4548-4) . Prediabetes: 5. 7 - 6.4 Diabetes : >6.4 Glycemic control for adults with diabetes: <7.0

P erformed by:
[facility] [place] ()

[facility] Description: Hemoglobin A1c/Hemoglobin.total in Blood 2020-10-30 05:01:00 Test Item Value Reference Range Interpretation Comments Hemoglobin A1c (test code 8.4 % 4.8-5.6 H = 4548-4) . Prediabetes: 5. 7 - 6.4 Diabetes : >6.4 Glycemic control for adults with diabetes: <7.0

P erformed by:
[facility] [place] ()

[facility] Description: Hemoglobin A1c/Hemoglobin.total in [...]

P erformed by:
[facility] ([place])

[facility] Description: Hemoglobin A1c/Hemoglobin.total in Blood 2020-10-30 05:01:00 Test Item Value Reference Range Interpretation Comments Hemoglobin A1c (test code 8.4 % 4.8-5.6 H = 4548-4) . Prediabetes: 5. 7 - 6.4 Diabetes : >6.4 Glycemic control for adults with diabetes: <7.0

P erformed by:
[facility] ([place])

[facility] Description: Hemoglobin A1c/Hemoglobin.total in Blood 2020-10-30 05:01:00 Test Item Value Reference Range Interpretation Comments Hemoglobin A1c (test code 8.4 % 4.8-5.6 H = 4548-4) . Prediabetes: 5. 7 - 6.4 Diabetes : >6.4 Glycemic control for adults with diabetes: <7.0

P erformed by:
[facility] ([place])

[facility] Description: Hemoglobin A1c/Hemoglobin.total in Blood 2020-10-30 05:01:00 Test Item Value Reference Range Interpretation Comments Hemoglobin A1c (test code 8.4 % 4.8-5.6 H = 4548-4) . Prediabetes: 5. 7 - 6.4 Diabetes : >6.4 Glycemic control for adults with diabetes: <7.0

P erformed by:
[facility] [place] ()

[facility] Description: Hemoglobin A1c/Hemoglobin.total in Blood 2020-10-30 05:01:00 Test Item Value Reference Range Interpretation Comments Hemoglobin A1c (test code 8.4 % 4.8-5.6 H = 4548-4) . Prediabetes: 5. 7 - 6.4 Diabetes : >6.4 Glycemic control for adults with diabetes: <7.0

P erformed by:
[facility] [place] ()

[facility] Description: Hemoglobin A1c/Hemoglobin.total in Blood 2020-10-30 05:01:00 Test Item Value Reference Range Interpretation Comments Hemoglobin A1c (test code 8.4 % 4.8-5.6 H = 4548-4) . Prediabetes: 5. 7 - 6.4 Diabetes : >6.4 Glycemic control for adults with diabetes: <7.0

P erformed by:
[facility] [place] ()

[facility] Description: Hemoglobin A1c/Hemoglobin.total in Blood 2020-10-30 05:01:00 Test Item Value Reference Range Interpretation Comments Hemoglobin A1c (test code 8.4 % 4.8-5.6 H = 4548-4) . Prediabetes: 5. 7 - 6.4 Diabetes : >6.4 Glycemic control for adults with diabetes: <7.0

P erformed by:
[facility] [place] ()

[facility] Description: Microscopic Bqgfbsxahtr1601-35-94 04:44:00 Test Item Value Reference Range Interpretation Comments WBC (test code = 5821-4) None seen 0-5 RBC (test code = 08000-3) None seen 0-2 Epithelial Cells (non renal) (test None seen 0-10 code = 5787-7) Epithelial Cells (renal) (test code = 60793-0) Casts (test code = 07349-8) None seen None seen Cast Type (test code = 87251-2) Crystals (test code = 5783-6) Crystal Type (test code = 5782-8) Mucus Threads (test code = 8247-9) Bacteria (test code = 5769-5) None seen None seen/Few Yeast (test code = 5822-2) Trichomonas (test code = 5813-1) Comment (test code = 93147-2) [facility] Description: Microscopic Sjsixiaiyer4163-60-03 04:44:00 Test Item Value Reference Range Interpretation Comments WBC (test code = 5821-4) None seen 0-5 RBC (test code = 96656-8) None seen 0-2 Epithelial Cells (non renal) (test None seen 0-10 code = 5787-7) Epithelial Cells (renal) (test code = 81804-5) Casts (test code = 71203-6) None seen None seen Cast Type (test code = 88444-4) Crystals (test code = 5783-6) Crystal Type (test code = 5782-8) Mucus Threads (test code = 8247-9) Bacteria (test code = 5769-5) None seen None seen/Few Yeast (test code = 5822-2) Trichomonas (test code = 5813-1) Comment (test code = 42802-1) [facility]: Microscopic Ufbzhmvwwhe4868-09-97 04:44:00 Test Item Value Reference Range Interpretation Comments WBC (test code = 5821-4) None seen 0-5 RBC (test code = 33974-2) None seen 0-2 Epithelial Cells (non renal) (test None seen 0-10 code = 5787-7) Epithelial Cells (renal) (test code = 65180-8) Casts (test code = 96593-5) None seen None seen Cast Type (test code = 83741-2) Crystals (test code = 5783-6) Crystal Type (test code = 5782-8) Mucus Threads (test code = 8247-9) Bacteria (test code = 5769-5) None seen None seen/Few Yeast (test code = 5822-2) Trichomonas (test code = 5813-1) Comment (test code = 14962-0) [facility]: Microscopic Unjuevjassv5596-51-12 04:44:00 Test Item Value Reference Range Interpretation Comments WBC (test code = 5821-4) None seen 0-5 RBC (test code = 51697-4) None seen 0-2 Epithelial Cells (non renal) (test None seen 0-10 code = 5787-7) Epithelial Cells (renal) (test code = 28310-9) Casts (test code = 73109-9) None seen None seen Cast Type (test code = 58592-3) Crystals (test code = 5783-6) Crystal Type (test code = 5782-8) Mucus Threads (test code = 8247-9) Bacteria (test code = 5769-5) None seen None seen/Few Yeast (test code = 5822-2) Trichomonas (test code = 5813-1) Comment (test code = 50944-5) [facility] Description: Microscopic Buhykqzlcui3811-61-86 04:44:00 Test Item Value Reference Range Interpretation Comments WBC (test code = 5821-4) None seen 0-5 RBC (test code = 70480-5) None seen 0-2 Epithelial Cells (non renal) (test None seen 0-10 code = 5787-7) Epithelial Cells (renal) (test code = 51319-6) Casts (test code = 97158-0) None seen None seen Cast Type (test code = 77854-5) Crystals (test code = 5783-6) Crystal Type (test code = 5782-8) Mucus Threads (test code = 8247-9) Bacteria (test code = 5769-5) None seen None seen/Few Yeast (test code = 5822-2) Trichomonas (test code = 5813-1) Comment (test code = 98884-5) [facility] Description: Microscopic Fvreuesyfsf5080-27-35 04:44:00 Test Item Value Reference Range Interpretation Comments WBC (test code = 5821-4) None seen 0-5 RBC (test code = 48103-6) None seen 0-2 Epithelial Cells (non renal) (test None seen 0-10 code = 5787-7) Epithelial Cells (renal) (test code = 76024-5) Casts (test code = 21184-8) None seen None seen Cast Type (test code = 08027-3) Crystals (test code = 5783-6) Crystal Type (test code = 5782-8) Mucus Threads (test code = 8247-9) Bacteria (test code = 5769-5) None seen None seen/Few Yeast (test code = 5822-2) Trichomonas (test code = 5813-1) Comment (test code = 67975-5) [facility] Description: Microscopic Jyjsxbdfbgp9359-84-21 04:44:00 Test Item Value Reference Range Interpretation Comments WBC (test code = 5821-4) None seen 0-5 RBC (test code = 19739-7) None seen 0-2 Epithelial Cells (non renal) (test None seen 0-10 code = 5787-7) Epithelial Cells (renal) (test code = 18727-0) Casts (test code = 91540-3) None seen None seen Cast Type (test code = 10279-2) Crystals (test code = 5783-6) Crystal Type (test code = 5782-8) Mucus Threads (test code = 8247-9) Bacteria (test code = 5769-5) None seen None seen/Few Yeast (test code = 5822-2) Trichomonas (test code = 5813-1) Comment (test code = 52284-9) [facility] Description: Microscopic Pmbmpaiejyi1099-41-38 04:44:00 Test Item Value Reference Range Interpretation Comments WBC (test code = 5821-4) None seen 0-5 RBC (test code = 46449-1) None seen 0-2 Epithelial Cells (non renal) (test None seen 0-10 code = 5787-7) Epithelial Cells (renal) (test code = 19059-6) Casts (test code = 14021-3) None seen None seen Cast Type (test code = 05616-0) Crystals (test code = 5783-6) Crystal Type (test code = 5782-8) Mucus Threads (test code = 8247-9) Bacteria (test code = 5769-5) None seen None seen/Few Yeast (test code = 5822-2) Trichomonas (test code = 5813-1) Comment (test code = 89448-9) [facility] Description: Microscopic Xvbdrjiqexx9240-63-84 04:44:00 Test Item Value Reference Range Interpretation Comments WBC (test code = 5821-4) None seen 0-5 RBC (test code = 09404-8) None seen 0-2 Epithelial Cells (non renal) (test None seen 0-10 code = 5787-7) Epithelial Cells (renal) (test code = 24308-1) Casts (test code = 75133-7) None seen None seen Cast Type (test code = 37606-6) Crystals (test code = 5783-6) Crystal Type (test code = 5782-8) Mucus Threads (test code = 8247-9) Bacteria (test code = 5769-5) None seen None seen/Few Yeast (test code = 5822-2) Trichomonas (test code = 5813-1) Comment (test code = 76080-0) [facility] Description: Microscopic Zyiugmfvmep1646-38-61 04:44:00 Test Item Value Reference Range Interpretation Comments WBC (test code = 5821-4) None seen 0-5 RBC (test code = 75988-3) None seen 0-2 Epithelial Cells (non renal) (test None seen 0-10 code = 5787-7) Epithelial Cells (renal) (test code = 82129-7) Casts (test code = 43806-8) None seen None seen Cast Type (test code = 56852-5) Crystals (test code = 5783-6) Crystal Type (test code = 5782-8) Mucus Threads (test code = 8247-9) Bacteria (test code = 5769-5) None seen None seen/Few Yeast (test code = 5822-2) Trichomonas (test code = 5813-1) Comment (test code = 71388-0) [facility] Description: Microscopic Slnxlsqrmoi6043-29-23 04:44:00 Test Item Value Reference Range Interpretation Comments WBC (test code = 5821-4) None seen 0-5 RBC (test code = 11401-8) None seen 0-2 Epithelial Cells (non renal) (test None seen 0-10 code = 5787-7) Epithelial Cells (renal) (test code = 53454-8) Casts (test code = 97043-9) None seen None seen Cast Type (test code = 61103-4) Crystals (test code = 5783-6) Crystal Type (test code = 5782-8) Mucus Threads (test code = 8247-9) Bacteria (test code = 5769-5) None seen None seen/Few Yeast (test code = 5822-2) Trichomonas (test code = 5813-1) Comment (test code = 43597-9) [facility]: Microscopic Eyhrbdgnleh8365-97-82 04:44:00 Test Item Value Reference Range Interpretation Comments WBC (test code = 5821-4) None seen 0-5 RBC (test code = 24259-8) None seen 0-2 Epithelial Cells (non renal) (test None seen 0-10 code = 5787-7) Epithelial Cells (renal) (test code = 87818-6) Casts (test code = 21111-3) None seen None seen Cast Type (test code = 32255-1) Crystals (test code = 5783-6) Crystal Type (test code = 5782-8) Mucus Threads (test code = 8247-9) Bacteria (test code = 5769-5) None seen None seen/Few Yeast (test code = 5822-2) Trichomonas (test code = 5813-1) Comment (test code = 21643-6) [facility] Description: Microscopic Ctrewonnjqx2193-78-49 04:44:00 Test Item Value Reference Range Interpretation Comments WBC (test code = 5821-4) None seen 0-5 RBC (test code = 84276-1) None seen 0-2 Epithelial Cells (non renal) (test None seen 0-10 code = 5787-7) Epithelial Cells (renal) (test code = 67645-2) Casts (test code = 11033-0) None seen None seen Cast Type (test code = 11781-6) Crystals (test code = 5783-6) Crystal Type (test code = 5782-8) Mucus Threads (test code = 8247-9) Bacteria (test code = 5769-5) None seen None seen/Few Yeast (test code = 5822-2) Trichomonas (test code = 5813-1) Comment (test code = 31090-5) [facility] Description: Microscopic Itswdyjmbwx3010-29-34 04:44:00 Test Item Value Reference Range Interpretation Comments WBC (test code = 5821-4) None seen 0-5 RBC (test code = 55630-2) None seen 0-2 Epithelial Cells (non renal) (test None seen 0-10 code = 5787-7) Epithelial Cells (renal) (test code = 93235-1) Casts (test code = 01151-8) None seen None seen Cast Type (test code = 33976-3) Crystals (test code = 5783-6) Crystal Type (test code = 5782-8) Mucus Threads (test code = 8247-9) Bacteria (test code = 5769-5) None seen None seen/Few Yeast (test code = 5822-2) Trichomonas (test code = 5813-1) Comment (test code = 91776-6) [facility] Description: Microscopic Yukshymcoaj5948-51-01 04:44:00 Test Item Value Reference Range Interpretation Comments WBC (test code = 5821-4) None seen 0-5 RBC (test code = 84282-6) None seen 0-2 Epithelial Cells (non renal) (test None seen 0-10 code = 5787-7) Epithelial Cells (renal) (test code = 53010-2) Casts (test code = 84033-7) None seen None seen Cast Type (test code = 69889-0) Crystals (test code = 5783-6) Crystal Type (test code = 5782-8) Mucus Threads (test code = 8247-9) Bacteria (test code = 5769-5) None seen None seen/Few Yeast (test code = 5822-2) Trichomonas (test code = 5813-1) Comment (test code = 41195-8) [facility] Description: Microscopic Skvfylaimkr2036-85-12 04:44:00 Test Item Value Reference Range Interpretation Comments WBC (test code = 5821-4) None seen 0-5 RBC (test code = 77526-5) None seen 0-2 Epithelial Cells (non renal) (test None seen 0-10 code = 5787-7) Epithelial Cells (renal) (test code = 80645-8) Casts (test code = 83980-3) None seen None seen Cast Type (test code = 39768-5) Crystals (test code = 5783-6) Crystal Type (test code = 5782-8) Mucus Threads (test code = 8247-9) Bacteria (test code = 5769-5) None seen None seen/Few Yeast (test code = 5822-2) Trichomonas (test code = 5813-1) Comment (test code = 01100-9) [facility] Description: Microscopic [id number] 04:44:00 Test Item Value Reference Range Interpretation Comments WBC (test code = 5821-4) None seen 0-5 RBC (test code = 91635-8) None seen 0-2 Epithelial Cells (non renal) (test None seen 0-10 code = 5787-7) Epithelial Cells (renal) (test code = 17964-6) Casts (test code = 71249-5) None seen None seen Cast Type (test code = 44897-6) Crystals (test code = 5783-6) Crystal Type (test code = 5782-8) Mucus Threads (test code = 8247-9) Bacteria (test code = 5769-5) None seen None seen/Few Yeast (test code = 5822-2) Trichomonas (test code = 5813-1) Comment (test code = 21449-0) [facility] Description: Microscopic [id number] 04:44:00 Test Item Value Reference Range Interpretation Comments WBC (test code = 5821-4) None seen 0-5 RBC (test code = 53506-5) None seen 0-2 Epithelial Cells (non renal) (test None seen 0-10 code = 5787-7) Epithelial Cells (renal) (test code = 05691-8) Casts (test code = 76566-0) None seen None seen Cast Type (test code = 47090-3) Crystals (test code = 5783-6) Crystal Type (test code = 5782-8) Mucus Threads (test code = 8247-9) Bacteria (test code = 5769-5) None seen None seen/Few Yeast (test code = 5822-2) Trichomonas (test code = 5813-1) Comment (test code = 62856-1) [facility] Description: Microscopic Johxzugplcj2070-51-14 04:44:00 Test Item Value Reference Range Interpretation Comments WBC (test code = 5821-4) None seen 0-5 RBC (test code = 62746-3) None seen 0-2 Epithelial Cells (non renal) (test None seen 0-10 code = 5787-7) Epithelial Cells (renal) (test code = 60525-7) Casts (test code = 55132-5) None seen None seen Cast Type (test code = 88712-4) Crystals (test code = 5783-6) Crystal Type (test code = 5782-8) Mucus Threads (test code = 8247-9) Bacteria (test code = 5769-5) None seen None seen/Few Yeast (test code = 5822-2) Trichomonas (test code = 5813-1) Comment (test code = 64719-2) [facility] Description: Microscopic Ipmittkbhod1848-56-87 04:44:00 Test Item Value Reference Range Interpretation Comments WBC (test code = 5821-4) None seen 0-5 RBC (test code = 76441-9) None seen 0-2 Epithelial Cells (non renal) (test None seen 0-10 code = 5787-7) Epithelial Cells (renal) (test code = 56794-0) Casts (test code = 10099-6) None seen None seen Cast Type (test code = 99256-6) Crystals (test code = 5783-6) Crystal Type (test code = 5782-8) Mucus Threads (test code = 8247-9) Bacteria (test code = 5769-5) None seen None seen/Few Yeast (test code = 5822-2) Trichomonas (test code = 5813-1) Comment (test code = 93605-8) [facility] Description: Urinalysis, Fqkpjoxe1834-40-18 04:43:00 Test Item Value Reference Range Interpretation Comments Specific [place] (test 1.012 1.005-1.030 code = 2965-2) pH (test code = 5.5 5.0-7.5 5803-2) Urine-Color (test code Yellow Yellow = 5778-6) Appearance (test code Clear Clear = 5767-9) WBC Esterase (test Negative Negative code = 5799-2) Protein (test code = 4+ Negative/Trace A 33888-1) Glucose (test code = Trace Negative A 2349-9) Ketones (test code = Negative Negative 2514-8) Occult Blood (test Trace Negative A code = 5794-3) Bilirubin (test code = Negative Negative 5770-3) Urobilinogen,Semi-Qn 0.2 mg/dL 0.2-1.0 (test code = 17609-4) Nitrite, Urine (test Negative Negative code = 5802-4) Microscopic See below: Microscopic was Examination (test code indic atecatrachito and was = 71887-6) performed.

P erformed by:
[facility] ()

[facility] Description: Urinalysis, Fwtqsgzo8929-60-70 04:43:00 Test Item Value Reference Range Interpretation Comments Specific [place] (test 1.012 1.005-1.030 code = 2965-2) pH (test code = 5.5 5.0-7.5 5803-2) Urine-Color (test code Yellow Yellow = 5778-6) Appearance (test code Clear Clear = 5767-9) WBC Esterase (test Negative Negative code = 5799-2) Protein (test code = 4+ Negative/Trace A 05325-8) Glucose (test code = Trace Negative A 2349-9) Ketones (test code = Negative Negative 2514-8) Occult Blood (test Trace Negative A code = 5794-3) Bilirubin (test code = Negative Negative 5770-3) Urobilinogen,Semi-Qn 0.2 mg/dL 0.2-1.0 (test code = 09853-6) Nitrite, Urine (test Negative Negative code = 5802-4) Microscopic See below: Microscopic was Examination (test code indic atecatrachito and was = 50288-1) performed.

P erformed by:
[facility] [place] ()

[facility] Description: Urinalysis, [id number] 04:43:00 Test Item Value Reference Range Interpretation Comments Specific [place] (test 1.012 1.005-1.030 code = 2965-2) pH (test code = 5.5 5.0-7.5 5803-2) Urine-Color (test code Yellow Yellow = 5778-6) Appearance (test code Clear Clear = 5767-9) WBC Esterase (test Negative Negative code = 5799-2) Protein (test code = 4+ Negative/Trace A 62343-8) Glucose (test code = Trace Negative A 2349-9) Ketones (test code = Negative Negative 2514-8) Occult Blood (test Trace Negative A code = 5794-3) Bilirubin (test code = Negative Negative 5770-3) Urobilinogen,Semi-Qn 0.2 mg/dL 0.2-1.0 (test code = 65608-9) Nitrite, Urine (test Negative Negative code = 5802-4) Microscopic See below: Microscopic was Examination (test code indic ated and was = 31301-2) performed.

P erformed by:
[facility] [place] ()

[facility] Description: Urinalysis, [id number] 04:43:00 Test Item Value Reference Range Interpretation Comments Specific [place] (test 1.012 1.005-1.030 code = 2965-2) pH (test code = 5.5 5.0-7.5 5803-2) Urine-Color (test code Yellow Yellow = 5778-6) Appearance (test code Clear Clear = 5767-9) WBC Esterase (test Negative Negative code = 5799-2) Protein (test code = 4+ Negative/Trace A 42422-6) Glucose (test code = Trace Negative A 2349-9) Ketones (test code = Negative Negative 2514-8) Occult Blood (test Trace Negative A code = 5794-3) Bilirubin (test code = Negative Negative 5770-3) Urobilinogen,Semi-Qn 0.2 mg/dL 0.2-1.0 (test code = 25629-4) Nitrite, Urine (test Negative Negative code = 5802-4) Microscopic See below: Microscopic was Examination (test code indic ated and was = 29896-9) performed.

P erformed by:
[facility] ()

[facility] Description: Urinalysis, [id number] 04:43:00 Test Item Value Reference Range Interpretation Comments Specific [place] (test 1.012 1.005-1.030 code = 2965-2) pH (test code = 5.5 5.0-7.5 5803-2) Urine-Color (test code Yellow Yellow = 5778-6) Appearance (test code Clear Clear = 5767-9) WBC Esterase (test Negative Negative code = 5799-2) Protein (test code = 4+ Negative/Trace A 03423-5) Glucose (test code = Trace Negative A 2349-9) Ketones (test code = Negative Negative 2514-8) Occult Blood (test Trace Negative A code = 5794-3) Bilirubin (test code = Negative Negative 5770-3) Urobilinogen,Semi-Qn 0.2 mg/dL 0.2-1.0 (test code = 50490-4) Nitrite, Urine (test Negative Negative code = 5802-4) Microscopic See below: Microscopic was Examination (test code indic ated and was = 17926-4) performed.

P erformed by:
[facility] ()

[facility], [id number] 04:43:00 Test Item Value Reference Range Interpretation Comments Specific [place] (test 1.012 1.005-1.030 code = 2965-2) pH (test code = 5.5 5.0-7.5 5803-2) Urine-Color (test code Yellow Yellow = 5778-6) Appearance (test code Clear Clear = 5767-9) WBC Esterase (test Negative Negative code = 5799-2) Protein (test code = 4+ Negative/Trace A 89513-2) Glucose (test code = Trace Negative A 2349-9) Ketones (test code = Negative Negative 2514-8) Occult Blood (test Trace Negative A code = 5794-3) Bilirubin (test code = Negative Negative 5770-3) Urobilinogen,Semi-Qn 0.2 mg/dL 0.2-1.0 (test code = 31194-0) Nitrite, Urine (test Negative Negative code = 5802-4) Microscopic See below: Microscopic was Examination (test code indic ated and was = 46597-1) performed.

P erformed by:
[facility] ()

[facility] Description: Urinalysis, [id number] 04:43:00 Test Item Value Reference Range Interpretation Comments Specific [place] (test 1.012 1.005-1.030 code = 2965-2) pH (test code = 5.5 5.0-7.5 5803-2) Urine-Color (test code Yellow Yellow = 5778-6) Appearance (test code Clear Clear = 5767-9) WBC Esterase (test Negative Negative code = 5799-2) Protein (test code = 4+ Negative/Trace A 11930-2) Glucose (test code = Trace Negative A 2349-9) Ketones (test code = Negative Negative 2514-8) Occult Blood (test Trace Negative A code = 5794-3) Bilirubin (test code = Negative Negative 5770-3) Urobilinogen,Semi-Qn 0.2 mg/dL 0.2-1.0 (test code = 13771-3) Nitrite, Urine (test Negative Negative code = 5802-4) Microscopic See below: Microscopic was Examination (test code indic ated and was = 96474-7) performed.

P erformed by:
[facility] [place] ()

[facility] Description: Urinalysis, [id number] 04:43:00 Test Item Value Reference Range Interpretation Comments Specific [place] (test 1.012 1.005-1.030 code = 2965-2) pH (test code = 5.5 5.0-7.5 5803-2) Urine-Color (test code Yellow Yellow = 5778-6) Appearance (test code Clear Clear = 5767-9) WBC Esterase (test Negative Negative code = 5799-2) Protein (test code = 4+ Negative/Trace A 30754-5) Glucose (test code = Trace Negative A 2349-9) Ketones (test code = Negative Negative 2514-8) Occult Blood (test Trace Negative A code = 5794-3) Bilirubin (test code = Negative Negative 5770-3) Urobilinogen,Semi-Qn 0.2 mg/dL 0.2-1.0 (test code = 41471-4) Nitrite, Urine (test Negative Negative code = 5802-4) Microscopic See below: Microscopic was Examination (test code indic ated and was = 76025-0) performed.

P erformed by:
[facility] [place] ()

[facility] Description: Urinalysis, [id number] 04:43:00 Test Item Value Reference Range Interpretation Comments Specific [place] (test 1.012 1.005-1.030 code = 2965-2) pH (test code = 5.5 5.0-7.5 5803-2) Urine-Color (test code Yellow Yellow = 5778-6) Appearance (test code Clear Clear = 5767-9) WBC Esterase (test Negative Negative code = 5799-2) Protein (test code = 4+ Negative/Trace A 05781-3) Glucose (test code = Trace Negative A 2349-9) Ketones (test code = Negative Negative 2514-8) Occult Blood (test Trace Negative A code = 5794-3) Bilirubin (test code = Negative Negative 5770-3) Urobilinogen,Semi-Qn 0.2 mg/dL 0.2-1.0 (test code = 37685-6) Nitrite, Urine (test Negative Negative code = 5802-4) Microscopic See below: Microscopic was Examination (test code indic ated and was = 61869-7) performed.

P erformed by:
[facility] [place] ()

[facility] Description: Urinalysis, [id number] 04:43:00 Test Item Value Reference Range Interpretation Comments Specific [place] (test 1.012 1.005-1.030 code = 2965-2) pH (test code = 5.5 5.0-7.5 5803-2) Urine-Color (test code Yellow Yellow = 5778-6) Appearance (test code Clear Clear = 5767-9) WBC Esterase (test Negative Negative code = 5799-2) Protein (test code = 4+ Negative/Trace A 44727-1) Glucose (test code = Trace Negative A 2349-9) Ketones (test code = Negative Negative 2514-8) Occult Blood (test Trace Negative A code = 5794-3) Bilirubin (test code = Negative Negative 5770-3) Urobilinogen,Semi-Qn 0.2 mg/dL 0.2-1.0 (test code = 92791-8) Nitrite, Urine (test Negative Negative code = 5802-4) Microscopic See below: Microscopic was Examination (test code indic ated and was = 17584-5) performed.

P erformed by:
[facility] [place] ()

[facility] Description: Urinalysis, [id number] 04:43:00 Test Item Value Reference Range Interpretation Comments Specific [place] (test 1.012 1.005-1.030 code = 2965-2) pH (test code = 5.5 5.0-7.5 5803-2) Urine-Color (test code Yellow Yellow = 5778-6) Appearance (test code Clear Clear = 5767-9) WBC Esterase (test Negative Negative code = 5799-2) Protein (test code = 4+ Negative/Trace A 02598-5) Glucose (test code = Trace Negative A 2349-9) Ketones (test code = Negative Negative 2514-8) Occult Blood (test Trace Negative A code = 5794-3) Bilirubin (test code = Negative Negative 5770-3) Urobilinogen,Semi-Qn 0.2 mg/dL 0.2-1.0 (test code = 35146-4) Nitrite, Urine (test Negative Negative code = 5802-4) Microscopic See below: Microscopic was Examination (test code indic ated and was = 80315-2) performed.

P erformed by:
[facility] [place] ()

[facility] Description: Urinalysis, [id number] 04:43:00 Test Item Value Reference Range Interpretation Comments Specific [place] (test 1.012 1.005-1.030 code = 2965-2) pH (test code = 5.5 5.0-7.5 5803-2) Urine-Color (test code Yellow Yellow = 5778-6) Appearance (test code Clear Clear = 5767-9) WBC Esterase (test Negative Negative code = 5799-2) Protein (test code = 4+ Negative/Trace A 21428-0) Glucose (test code = Trace Negative A 2349-9) Ketones (test code = Negative Negative 2514-8) Occult Blood (test Trace Negative A code = 5794-3) Bilirubin (test code = Negative Negative 5770-3) Urobilinogen,Semi-Qn 0.2 mg/dL 0.2-1.0 (test code = 83505-3) Nitrite, Urine (test Negative Negative code = 5802-4) Microscopic See below: Microscopic was Examination (test code indic ated and was = 39298-5) performed.

P erformed by:
[facility] [place] ()

[facility] Description: Urinalysis, [id number] 04:43:00 Test Item Value Reference Range Interpretation Comments Specific [place] (test 1.012 1.005-1.030 code = 2965-2) pH (test code = 5.5 5.0-7.5 5803-2) Urine-Color (test code Yellow Yellow = 5778-6) Appearance (test code Clear Clear = 5767-9) WBC Esterase (test Negative Negative code = 5799-2) Protein (test code = 4+ Negative/Trace A 46279-3) Glucose (test code = Trace Negative A 2349-9) Ketones (test code = Negative Negative 2514-8) Occult Blood (test Trace Negative A code = 5794-3) Bilirubin (test code = Negative Negative 5770-3) Urobilinogen,Semi-Qn 0.2 mg/dL 0.2-1.0 (test code = 91238-8) Nitrite, Urine (test Negative Negative code = 5802-4) Microscopic See below: Microscopic was Examination (test code indic ated and was = 95868-7) performed.

P erformed by:
[facility] [place] ()

[facility] Description: Urinalysis, [id number] 04:43:00 Test Item Value Reference Range Interpretation Comments Specific [place] (test 1.012 1.005-1.030 code = 2965-2) pH (test code = 5.5 5.0-7.5 5803-2) Urine-Color (test code Yellow Yellow = 5778-6) Appearance (test code Clear Clear = 5767-9) WBC Esterase (test Negative Negative code = 5799-2) Protein (test code = 4+ Negative/Trace A 60690-8) Glucose (test code = Trace Negative A 2349-9) Ketones (test code = Negative Negative 2514-8) Occult Blood (test Trace Negative A code = 5794-3) Bilirubin (test code = Negative Negative 5770-3) Urobilinogen,Semi-Qn 0.2 mg/dL 0.2-1.0 (test code = 78538-5) Nitrite, Urine (test Negative Negative code = 5802-4) Microscopic See below: Microscopic was Examination (test code indic ated and was = 99584-5) performed.

P erformed by:
[facility] ()

[facility] Description: Urinalysis, [id number] 04:43:00 Test Item Value Reference Range Interpretation Comments Specific [place] (test 1.012 1.005-1.030 code = 2965-2) pH (test code = 5.5 5.0-7.5 5803-2) Urine-Color (test code Yellow Yellow = 5778-6) Appearance (test code Clear Clear = 5767-9) WBC Esterase (test Negative Negative code = 5799-2) Protein (test code = 4+ Negative/Trace A 23658-9) Glucose (test code = Trace Negative A 2349-9) Ketones (test code = Negative Negative 2514-8) Occult Blood (test Trace Negative A code = 5794-3) Bilirubin (test code = Negative Negative 5770-3) Urobilinogen,Semi-Qn 0.2 mg/dL 0.2-1.0 (test code = 39699-9) Nitrite, Urine (test Negative Negative code = 5802-4) Microscopic See below: Microscopic was Examination (test code indic ated and was = 36441-4) performed.

P erformed by:
[facility] ()

[facility] Description: Urinalysis, [id number] 04:43:00 Test Item Value Reference Range Interpretation Comments Specific [place] (test 1.012 1.005-1.030 code = 2965-2) pH (test code = 5.5 5.0-7.5 5803-2) Urine-Color (test code Yellow Yellow = 5778-6) Appearance (test code Clear Clear = 5767-9) WBC Esterase (test Negative Negative code = 5799-2) Protein (test code = 4+ Negative/Trace A 62373-1) Glucose (test code = Trace Negative A 2349-9) Ketones (test code = Negative Negative 2514-8) Occult Blood (test Trace Negative A code = 5794-3) Bilirubin (test code = Negative Negative 5770-3) Urobilinogen,Semi-Qn 0.2 mg/dL 0.2-1.0 (test code = 21992-7) Nitrite, Urine (test Negative Negative code = 5802-4) Microscopic See below: Microscopic was Examination (test code indic ated and was = 82334-8) performed.

P erformed by:
[facility] ()

[facility] Description: Urinalysis, [id number] 04:43:00 Test Item Value Reference Range Interpretation Comments Specific [place] (test 1.012 1.005-1.030 code = 2965-2) pH (test code = 5.5 5.0-7.5 5803-2) Urine-Color (test code Yellow Yellow = 5778-6) Appearance (test code Clear Clear = 5767-9) WBC Esterase (test Negative Negative code = 5799-2) Protein (test code = 4+ Negative/Trace A 35437-2) Glucose (test code = Trace Negative A 2349-9) Ketones (test code = Negative Negative 2514-8) Occult Blood (test Trace Negative A code = 5794-3) Bilirubin (test code = Negative Negative 5770-3) Urobilinogen,Semi-Qn 0.2 mg/dL 0.2-1.0 (test code = 78002-9) Nitrite, Urine (test Negative Negative code = 5802-4) Microscopic See below: Microscopic was Examination (test code indic ated and was = 22033-1) performed.

P erformed by:
Ray Kaur ()

[facility] Description: Urinalysis, [id number] 04:43:00 Test Item Value Reference Range Interpretation Comments Specific [place] (test 1.012 1.005-1.030 code = 2965-2) pH (test code = 5.5 5.0-7.5 5803-2) Urine-Color (test code Yellow Yellow = 5778-6) Appearance (test code Clear Clear = 5767-9) WBC Esterase (test Negative Negative code = 5799-2) Protein (test code = 4+ Negative/Trace A 52615-1) Glucose (test code = Trace Negative A 2349-9) Ketones (test code = Negative Negative 2514-8) Occult Blood (test Trace Negative A code = 5794-3) Bilirubin (test code = Negative Negative 5770-3) Urobilinogen,Semi-Qn 0.2 mg/dL 0.2-1.0 (test code = 32511-5) Nitrite, Urine (test Negative Negative code = 5802-4) Microscopic See below: Microscopic was Examination (test code indic atecatrachito isbell was = 00668-1) performed.

P erformed by:
[facility] [place] ()

[facility] Description: Urinalysis, [id number] 04:43:00 Test Item Value Reference Range Interpretation Comments Specific [place] (test 1.012 1.005-1.030 code = 2965-2) pH (test code = 5.5 5.0-7.5 5803-2) Urine-Color (test code Yellow Yellow = 5778-6) Appearance (test code Clear Clear = 5767-9) WBC Esterase (test Negative Negative code = 5799-2) Protein (test code = 4+ Negative/Trace A 40437-0) Glucose (test code = Trace Negative A 2349-9) Ketones (test code = Negative Negative 2514-8) Occult Blood (test Trace Negative A code = 5794-3) Bilirubin (test code = Negative Negative 5770-3) Urobilinogen,Semi-Qn 0.2 mg/dL 0.2-1.0 (test code = 24145-4) Nitrite, Urine (test Negative Negative code = 5802-4) Microscopic See below: Microscopic was Examination (test code indic ated and was = 76180-2) performed.

P erformed by:
[facility] [place] ()

[facility] Description: Urinalysis, [id number] 04:43:00 Test Item Value Reference Range Interpretation Comments Specific [place] (test 1.012 1.005-1.030 code = 2965-2) pH (test code = 5.5 5.0-7.5 5803-2) Urine-Color (test code Yellow Yellow = 5778-6) Appearance (test code Clear Clear = 5767-9) WBC Esterase (test Negative Negative code = 5799-2) Protein (test code = 4+ Negative/Trace A 14154-5) Glucose (test code = Trace Negative A 2349-9) Ketones (test code = Negative Negative 2514-8) Occult Blood (test Trace Negative A code = 5794-3) Bilirubin (test code = Negative Negative 5770-3) Urobilinogen,Semi-Qn 0.2 mg/dL 0.2-1.0 (test code = 18716-1) Nitrite, Urine (test Negative Negative code = 5802-4) Microscopic See below: Microscopic was Examination (test code indic ated and was = 40127-7) performed.

P erformed by:
[facility] [place] ()

[facility] Description: Urinalysis, [id number] 04:43:00 [facility] Description: Urinalysis, Complete 2020-10-30 04:43:00[facility] Description: Urinalysis, [id number] 04:43:00[facility] Description: Urinalysis, [id number] 04:43:00Microscopic Examination [facility] Description: Urinalysis, [id number] 04:43:00 [facility] Description: Urinalysis, Complete 2020-10-30 04:43:00[facility] Description: Urinalysis, [id number] 04:43:00[facility] Description: Urinalysis, [id number] 04:43:00Microscopic Examination [facility] Description: Urinalysis, [id number] 04:43:00 [facility]scopic [facility] Description: Urinalysis, Complete 2020-10-30 04:43:00[facility] Description: Urinalysis, [id number] 04:43:00[facility] Description: Urinalysis, Athvljqs2011-52-14 04:43:00Microscopic Examination [facility] Description: Urinalysis, [id number] 04:43:00 [facility] Description: Urinalysis, Complete 2020-10-30 04:43:00[facility] Description: Urinalysis, [id number] 04:43:00[facility] Description: Urinalysis, [id number] 04:43:00Microscopic Examination [facility] Description: Urinalysis, Lyqfkulj0554-89-70 04:43:00 [facility]scopic [facility] Description: Urinalysis, Complete 2020-10-30 04:43:00[facility] Description: Urinalysis, Ikojgvwe4546-76-30 04:43:00[facility]scopic [facility] Description: Urinalysis, [id number] 04:43:00Microscopic Examination [facility] Description: 25-hydroxyvitamin D3 [Mass/volume] in Serum or [id number] 04:26:00 Test Item Value Reference Range Interpretation Comments Vitamin D, 12.0 ng/mL 30.0-100.0 L Vitamin D defic iency has 25-Hydroxy (test been define d by the code = 15762-2) [employer] and an Endocrine So ciety practice guidel ine as alevel of serum 25-OH vitamin D less than 20 ng/mL (1,2).The Endocrine Society went on to further define vitamin Dinsufficiency as a level between 21 and 29 ng/mL (2).1. IOM (Ins titute of Medicine). 2010 . Dietary reference int akes for calcium and D. [facility]: [employer] .2. Ela Oliveros, Stephane EMERSON, et al. Evaluatio n, treatment, and prevention of vitamin D deficiency: an Endocrine Society clinica l practice guideline. [facility]. 2010; 96(7):1911-30.< br/>
P erformed by:
[facility] ([place])

[facility] Description: 25-hydroxyvitamin D3 [Mass/volume] in Serum or [id number] 04:26:00 Test Item Value Reference Range Interpretation Comments Vitamin D, 12.0 ng/mL 30.0-100.0 L Vitamin D defic iency has 25-Hydroxy (test been define d by the code = 50535-1) [employer] and [facility] Endocrine So [facility] practice guidel ine as alevel of serum 25-OH vitamin D less than 20 ng/mL (1,2).The Endocrine Society went on to further define vitamin Dinsufficiency as a level between 21 and 29 ng/mL (2).1. IOM (Ins titute of Medicine). 2010 . Dietary reference int akes for calcium and D. [facility]: [employer] .2. Ela Oliveros, Stephane EMERSON, et al. Evaluatio n, treatment, and prevention of vitamin D deficiency: an Endocrine Society clinica l practice guideline. [facility]. 2010; 96(7):1911-30.< br/>
P erformed by:
[facility] (HD)

[facility] Description: 25-hydroxyvitamin D3 [Mass/volume] in Serum or [id number] 04:26:00 Test Item Value Reference Range Interpretation Comments Vitamin D, 12.0 ng/mL 30.0-100.0 L Vitamin D defic iency has 25-Hydroxy (test been define d by the code = 07058-4) [employer] [facility] Endocrine So [facility] practice guidel ine as alevel of serum 25-OH vitamin D less than 20 ng/mL (1,2).The Endocrine Society went on to further define vitamin Dinsufficiency as a level between 21 and 29 ng/mL (2).1. IOM (Ins titute of Medicine). 2010 . Dietary reference int akes for calcium and D. [facility]: [employer] .2. Ela Oliveros, Stephane EMERSON, et al. Evaluatio n, treatment, and prevention of vitamin D deficiency: an Endocrine Society clinica l practice guideline. EM. 2010; 96(7):1911-30.< br/>
P erformed by:
[facility] (HD)

[facility] Description: 25-hydroxyvitamin D3 [Mass/volume] in Serum or [id number] 04:26:00 Test Item Value Reference Range Interpretation Comments Vitamin D, 12.0 ng/mL 30.0-100.0 L Vitamin D defic iency has 25-Hydroxy (test been define d by the code = 80150-5) [employer] [facility] Endocrine So [facility] practice guidel ine as alevel of serum 25-OH vitamin D less than 20 ng/mL (1,2).The Endocrine Society went on to further define vitamin Dinsufficiency as a level between 21 and 29 ng/mL (2).1. IOM (Ins titute of Medicine). 2010 . Dietary reference int akes for calcium and D. [facility]: [employer] .2. Ela Oliveros, Stephane EMERSON, et al. Evaluatio n, treatment, and prevention of vitamin D deficiency: an Endocrine Society clinica l practice guideline. EM. 2010; 96(7):1911-30.< br/>
P erformed by:
[facility] (HD)

[facility] Description: 25-hydroxyvitamin D3 [Mass/volume] in Serum or [id number] 04:26:00 Test Item Value Reference Range Interpretation Comments Vitamin D, 12.0 ng/mL 30.0-100.0 L Vitamin D defic iency has 25-Hydroxy (test been define d by the code = 47075-7) [employer] [facility] Endocrine So ciety practice guidel ine as alevel of serum 25-OH vitamin D less than 20 ng/mL (1,2).The Endocrine Society went on to further define vitamin Dinsufficiency as a level between 21 and 29 ng/mL (2).1. IOM (Ins [facility]). 2010 . Dietary reference int akes for calcium and D. [facility]: [employer] .2. Ela Oliveros, Stephane EMERSON, et al. Evaluatio n, treatment, and prevention of vitamin D deficiency: an Endocrine Society clinica l practice guideline. [place]. 2010; 96(7):191-.< br/>
P erformed by:
[facility] (HD)

[facility] Description: 25-hydroxyvitamin D3 [Mass/volume] in Serum or [id number] 04:26:00 Test Item Value Reference Range Interpretation Comments Vitamin D, 12.0 ng/mL 30.0-100.0 L Vitamin D defic iency has 25-Hydroxy (test been define d by the code = 90282-1) [employer] [facility] Endocrine So [facility] practice guidel ine as alevel of serum 25-OH vitamin D less than 20 ng/mL (1,2).The Endocrine Society went on to further define vitamin Dinsufficiency as a level between 21 and 29 ng/mL (2).1. IOM (Ins [facility] of Medicine). 2010 . Dietary reference int akes for calcium and D. [facility]: [employer] .2. Ela Oliveros, Stephane EMERSON, et al. Evaluatio n, treatment, and prevention of vitamin D deficiency: an Endocrine Society clinica l practice guideline. [place] EM. 2010; 96(7):191-.< br/>
P erformed by:
[facility] (HD)

[facility] Description: 25-hydroxyvitamin D3 [Mass/volume] in Serum or [id number] 04:26:00 Test Item Value Reference Range Interpretation Comments Vitamin D, 12.0 ng/mL 30.0-100.0 L Vitamin D defic iency has 25-Hydroxy (test been define d by the code = 13358-5) [employer] [facility] Endocrine So [facility] practice guidel ine as alevel of serum 25-OH vitamin D less than 20 ng/mL (1,2).The Endocrine Society went on to further define vitamin Dinsufficiency as a level between 21 and 29 ng/mL (2).1. IOM (Ins titute of Medicine). 2010 . Dietary reference int akes for calcium and D. [facility]: [employer] .2. Ela Oliveros, Stephane EMERSON, et al. Evaluatio n, treatment, and prevention of vitamin D deficiency: an Endocrine Society clinica l practice guideline. EM. 2010; 96(7):191-.< br/>
P erformed by:
[facility] (HD)

[facility] [employer] Description: 25-hydroxyvitamin D3 [Mass/volume] in Serum or [id number] 04:26:00 Test Item Value Reference Range Interpretation Comments Vitamin D, 12.0 ng/mL 30.0-100.0 L Vitamin D defic iency has 25-Hydroxy (test been define d by the code = 40229-3) [employer] [facility]ocrine So [facility] practice guidel ine as alevel of serum 25-OH vitamin D less than 20 ng/mL (1,2).The Endocrine Society went on to further define vitamin Dinsufficiency as a level between 21 and 29 ng/mL (2).1. IOM (Ins titute of Medicine). 2010 . Dietary reference int akes for calcium and D. [facility]: [employer] .2. Ela Oliveros, Stephane EMERSON, et al. Evaluatio n, treatment, and prevention of vitamin D deficiency: an Endocrine Society clinica l practice guideline. EM. 2010; 96(7):191-.< br/>
P erformed by:
[facility] (HD)

[facility] [employer] Description: 25-hydroxyvitamin D3 [Mass/volume] in Serum or [id number] 04:26:00 Test Item Value Reference Range Interpretation Comments Vitamin D, 12.0 ng/mL 30.0-100.0 L Vitamin D defic iency has 25-Hydroxy (test been define d by the code = 43707-5) [employer] [facility] Endocrine So [facility] practice guidel ine as alevel of serum 25-OH vitamin D less than 20 ng/mL (1,2).The Endocrine Society went on to further define vitamin Dinsufficiency as a level between 21 and 29 ng/mL (2).1. IOM (Ins titute of Medicine). 2010 . Dietary reference int akes for calcium and D. [facility]: [employer] .2. Ela Oliveros, Stephane EMERSON, et al. Evaluatio n, treatment, and prevention of vitamin D deficiency: an Endocrine Society clinica l practice guideline. EM. 2010; 96(7):1911-30.< br/>
P erformed by:
[facility] ()

[facility] Description: 25-hydroxyvitamin D3 [Mass/volume] in Serum or [id number] 04:26:00 Test Item Value Reference Range Interpretation Comments Vitamin D, 12.0 ng/mL 30.0-100.0 L Vitamin D defic iency has 25-Hydroxy (test been define d by the code = 65340-8) [employer] [facility]ocrine So [facility] practice guidel ine as alevel of serum 25-OH vitamin D less than 20 ng/mL (1,2).The Endocrine Society went on to further define vitamin Dinsufficiency as a level between 21 and 29 ng/mL (2).1. IOM (Ins titute of Medicine). 2010 . Dietary reference int akes for calcium and D. [facility] [facility]: [employer] .2. Ela Oliveros, Stephane EMERSON, et al. Evaluatio n, treatment, and prevention of vitamin D deficiency: an Endocrine Society clinica l practice guideline. EM. 2010; 96(7):1911-30.< br/>
P erformed by:
[facility] (HD)

[facility] Description: 25-hydroxyvitamin D3 [Mass/volume] in Serum or [id number] 04:26:00 Test Item Value Reference Range Interpretation Comments Vitamin D, 12.0 ng/mL 30.0-100.0 L Vitamin D defic iency has 25-Hydroxy (test been define d by the code = 19798-3) [employer] [facility] Endocrine So [facility] practice guidel ine as alevel of serum 25-OH vitamin D less than 20 ng/mL (1,2).The Endocrine Society went on to further define vitamin Dinsufficiency as a level between 21 and 29 ng/mL (2).1. IOM (Ins titute of Medicine). 2010 . Dietary reference int akes for calcium and D. [employer] [facility]: [employer] .2. Ela Oliveros, Stephane EMERSON, et al. Evaluatio n, treatment, and prevention of vitamin D deficiency: an Endocrine Society clinica l practice guideline. EM. 2010; 96(7):1911-30.< br/>
P erformed by:
[facility] (HD)

[facility] Description: 25-hydroxyvitamin D3 [Mass/volume] in Serum or [id number] 04:26:00 Test Item Value Reference Range Interpretation Comments Vitamin D, 12.0 ng/mL 30.0-100.0 L Vitamin D defic iency has 25-Hydroxy (test been define d by the code = 58749-0) [employer] [facility] [employer] Endocrine So [facility] practice guidel ine as alevel of serum 25-OH vitamin D less than 20 ng/mL (1,2).The Endocrine Society went on to further define vitamin Dinsufficiency as a level between 21 and 29 ng/mL (2).1. IOM (Ins titute of Medicine). 2010 . Dietary reference int akes for calcium and D. [employer] [facility]: [employer] .2. Ela Oliveros, Stephane EMERSON, et al. Evaluatio n, treatment, and prevention of vitamin D deficiency: an Endocrine Society clinica l practice guideline. EM. 2010; 96(7):1911-30.< br/>
P erformed by:
[facility] (HD)

[facility] Description: 25-hydroxyvitamin D3 [Mass/volume] in Serum or [id number] 04:26:00 Test Item Value Reference Range Interpretation Comments Vitamin D, 12.0 ng/mL 30.0-100.0 L Vitamin D defic iency has 25-Hydroxy (test been define d by the code = 74271-6) [employer] [facility] Endocrine So [facility] practice guidel ine as alevel of serum 25-OH vitamin D less than 20 ng/mL (1,2).The Endocrine Society went on to further define vitamin Dinsufficiency as a level between 21 and 29 ng/mL (2).1. IOM (Ins titute of Medicine). 2010 . Dietary reference int akes for calcium and D. [employer]: [employer] .2. Dileep MF, Ela SANTA, Stephane blake EMERSON, et al. Evaluatio n, treatment, and prevention of vitamin D deficiency: an Endocrine Society clinica l practice guideline. EM. 2010; 96(7):1911-30.< br/>
P erformed by:
[facility] (HD)

[facility] Description: 25-hydroxyvitamin D3 [Mass/volume] in Serum or [id number] 04:26:00 Test Item Value Reference Range Interpretation Comments Vitamin D, 12.0 ng/mL 30.0-100.0 L Vitamin D defic iency has 25-Hydroxy (test been define d by the code = 98730-5) [employer] [facility] Endocrine So [facility] practice guidel ine as alevel of serum 25-OH vitamin D less than 20 ng/mL (1,2).The Endocrine Society went on to further define vitamin Dinsufficiency as a level between 21 and 29 ng/mL (2).1. IOM (Ins titute of Medicine). 2010 . Dietary reference int akes for calcium and D. [employer]: [employer] .2. Ela Oliveros, Stephane EMERSON, et al. Evaluatio n, treatment, and prevention of vitamin D deficiency: an Endocrine Society clinica l practice guideline. [facility]. 2010; 96(7):191-.< br/>
P erformed by:
[facility] (HD)

[facility] Description: 25-hydroxyvitamin D3 [Mass/volume] in Serum or [id number] 04:26:00 Test Item Value Reference Range Interpretation Comments Vitamin D, 12.0 ng/mL 30.0-100.0 L Vitamin D defic iency has 25-Hydroxy (test been define d by the code = 71530-0) [employer] [facility] Endocrine So [facility] practice guidel ine as alevel of serum 25-OH vitamin D less than 20 ng/mL (1,2).The Endocrine Society went on to further define vitamin Dinsufficiency as a level between 21 and 29 ng/mL (2).1. IOM (Ins titute of Medicine). 2010 . Dietary reference int akes for calcium and D. [facility]: [employer] .2. Ela Oliveros, Stephane EMERSON, et al. Evaluatio n, treatment, and prevention of vitamin D deficiency: an Endocrine Society clinica l practice guideline. [facility]. 2010; 96(7):191-.< br/>
P erformed by:
[facility] (HD)

[facility] Description: 25-hydroxyvitamin D3 [Mass/volume] in Serum or [id number] 04:26:00 Test Item Value Reference Range Interpretation Comments Vitamin D, 12.0 ng/mL 30.0-100.0 L Vitamin D defic iency has 25-Hydroxy (test been define d by the code = 40800-0) [employer] [facility] Endocrine So [facility] practice guidel ine as alevel of serum 25-OH vitamin D less than 20 ng/mL (1,2).The Endocrine Society went on to further define vitamin Dinsufficiency as a level between 21 and 29 ng/mL (2).1. IOM (Ins titute of Medicine). 2010 . Dietary reference int akes for calcium and D. [facility]: [employer] .2. Ela Oliveros, Stephane EMERSON, et al. Evaluatio n, treatment, and prevention of vitamin D deficiency: an Endocrine Society clinica l practice guideline. [place] EM. 2010; 96(7):191-.< br/>
P erformed by:
[facility] (HD)

[facility] Description: 25-hydroxyvitamin D3 [Mass/volume] in Serum or [id number] 04:26:00 Test Item Value Reference Range Interpretation Comments Vitamin D, 12.0 ng/mL 30.0-100.0 L Vitamin D defic iency has 25-Hydroxy (test been define d by the code = 21484-5) [employer] [facility] [employer] Endocrine So ciety practice guidel ine as alevel of serum 25-OH vitamin D less than 20 ng/mL (1,2).The Endocrine Society went on to further define vitamin Dinsufficiency as a level between 21 and 29 ng/mL (2).1. IOM (Ins titute of Medicine). 2010 . Dietary reference int akes for calcium and D. [facility]: [employer] .2. Dileep AREVALO, Ela SANTA, Stephane EMERSON, et al. Evaluatio n, treatment, and prevention of vitamin D deficiency: an Endocrine Society clinica l practice guideline. [place] EM. 2010; 96(7):1911-30.< br/>
P erformed by:
[facility] (HD)

[facility] Description: 25-hydroxyvitamin D3 [Mass/volume] in Serum or [id number] 04:26:00 Test Item Value Reference Range Interpretation Comments Vitamin D, 12.0 ng/mL 30.0-100.0 L Vitamin D defic iency has 25-Hydroxy (test been define d by the code = 62518-2) [employer] [facility] [employer] Endocrine So ciety practice guidel ine as alevel of serum 25-OH vitamin D less than 20 ng/mL (1,2).The Endocrine Society went on to further define vitamin Dinsufficiency as a level between 21 and 29 ng/mL (2).1. IOM (Ins titute of Medicine). 2010 . Dietary reference int akes for calcium and D. [facility]: [employer] .2. Ela Oliveros, Stephane EMERSON, et al. Evaluatio n, treatment, and prevention of vitamin D deficiency: an Endocrine Society clinica l practice guideline. [place] EM. 2010; 96(7):1911-30.< br/>
P erformed by:
[facility] (HD)

[facility] Description: 25-hydroxyvitamin D3 [Mass/volume] in Serum or [id number] 04:26:00 Test Item Value Reference Range Interpretation Comments Vitamin D, 12.0 ng/mL 30.0-100.0 L Vitamin D defic iency has 25-Hydroxy (test been define d by the code = 17222-8) [employer] [facility] Endocrine So [facility] practice guidel ine as alevel of serum 25-OH vitamin D less than 20 ng/mL (1,2).The Endocrine Society went on to further define vitamin Dinsufficiency as a level between 21 and 29 ng/mL (2).1. IOM (Ins [facility]). 2010 . Dietary reference int akes for calcium and D. [employer] [facility]: [employer] .2. Ela Oliveros, Stephane EMERSON, et al. Evaluatio n, treatment, and prevention of vitamin D deficiency: an Endocrine Society clinica l practice guideline. [place] EM. 2010; 96(7):1911-30.< br/>
P erformed by:
[facility] (HD)

[facility] Description: 25-hydroxyvitamin D3 [Mass/volume] in Serum or [id number] 04:26:00 Test Item Value Reference Range Interpretation Comments Vitamin D, 12.0 ng/mL 30.0-100.0 L Vitamin D defic iency has 25-Hydroxy (test been define d by the code = 29216-5) [employer] [facility] Endocrine So ciety practice guidel ine as alevel of serum 25-OH vitamin D less than 20 ng/mL (1,2).The Endocrine Society went on to further define vitamin Dinsufficiency as a level between 21 and 29 ng/mL (2).1. IOM (Ins titute of Medicine). 2010 . Dietary reference int akes for calcium and D. [place]: [employer] .2. Dileep MF, Ela NC, Stephane i EMERSON, et al. Evaluatio n, treatment, and prevention of vitamin D deficiency: an Endocrine Society clinica l practice guideline. [place] EM. 2010; 96(7):1911-30.< br/>
P erformed by:
[facility] ()

[facility] Description: CBC With Differential/[id number] 04:00:00 Test Item Value Reference Range Interpretation [...] (test 1 % Not Estab. code = 61561-7) Immature Grans (Abs) (test code 0.0 x10E3/uL 0.0-0.1 = 57915-5) NRBC (test code = 04530-2) Hematology Comments: (test code = 05521-2) [facility] Description: CBC With Differential/Sseuvbou0010-63-88 04:00:00 Test Item Value Reference Range Interpretation [...] (test 1 % Not Estab. code = 02316-8) Immature Grans (Abs) (test code 0.0 x10E3/uL 0.0-0.1 = 49210-3) NRBC (test code = 05458-2) Hematology Comments: (test code = 99694-9) [facility] Description: CBC With Differential/Uazttgje4627-66-66 04:00:00 Test Item Value Reference Range Interpretation [...] (test 1 % Not Estab. code = 46156-8) Immature Grans (Abs) (test code 0.0 x10E3/uL 0.0-0.1 = 70284-1) NRBC (test code = 77877-6) Hematology Comments: (test code = 75351-8) [facility]: CBC With Differential/Swmgyovn0479-34-58 04:00:00 Test Item Value Reference Range Interpretation [...] (test 1 % Not Estab. code = 44911-0) Immature Grans (Abs) (test code 0.0 x10E3/uL 0.0-0.1 = 44197-5) NRBC (test code = 01121-6) Hematology Comments: (test code = 98224-2) [facility] Description: CBC With Differential/Jayghdmp3566-20-03 04:00:00 Test Item Value Reference Range Interpretation [...] (test 1 % Not Estab. code = 75720-3) Immature Grans (Abs) (test code 0.0 x10E3/uL 0.0-0.1 = 70009-3) NRBC (test code = 28987-4) Hematology Comments: (test code = 88733-7) [facility]: CBC With Differential/Xfjzyona2667-57-05 04:00:00 Test Item Value Reference Range Interpretation [...] (test 1 % Not Estab. code = 14830-8) Immature Grans (Abs) (test code 0.0 x10E3/uL 0.0-0.1 = 51745-8) NRBC (test code = 08655-0) Hematology Comments: (test code = 87370-2) [facility] Description: CBC With Differential/Henjtldo4991-19-39 04:00:00 Test Item Value Reference Range Interpretation [...] (test 1 % Not Estab. code = 78015-5) Immature Grans (Abs) (test code 0.0 x10E3/uL 0.0-0.1 = 36977-8) NRBC (test code = 73812-6) Hematology Comments: (test code = 07569-5) [facility] Description: CBC With Differential/Ycoefzmi7282-83-56 04:00:00 Test Item Value Reference Range Interpretation [...] (test 1 % Not Estab. code = 06897-4) Immature Grans (Abs) (test code 0.0 x10E3/uL 0.0-0.1 = 01753-3) NRBC (test code = 92823-0) Hematology Comments: (test code = 79021-7) [facility] Description: CBC With Differential/Iikhsjcf9430-67-46 04:00:00 Test Item Value Reference Range Interpretation [...] (test 1 % Not Estab. code = 51339-3) Immature Grans (Abs) (test code 0.0 x10E3/uL 0.0-0.1 = 41407-4) NRBC (test code = 25202-5) Hematology Comments: (test code = 41319-9) [facility]: CBC With Differential/Rijoydje0120-93-75 04:00:00 Test Item Value Reference Range Interpretation [...] (test 1 % Not Estab. code = 67940-8) Immature Grans (Abs) (test code 0.0 x10E3/uL 0.0-0.1 = 89549-4) NRBC (test code = 02501-2) Hematology Comments: (test code = 81566-5) [facility]: CBC With Differential/Tnjbjxza2654-48-14 04:00:00 Test Item Value Reference Range Interpretation [...] (test 1 % Not Estab. code = 58330-8) Immature Grans (Abs) (test code 0.0 x10E3/uL 0.0-0.1 = 67830-8) NRBC (test code = 09830-2) Hematology Comments: (test code = 55077-9) [facility] Description: CBC With Differential/Ziymafzx4379-88-32 04:00:00 Test Item Value Reference Range Interpretation [...] (test 1 % Not Estab. code = 37424-4) Immature Grans (Abs) (test code 0.0 x10E3/uL 0.0-0.1 = 55578-5) NRBC (test code = 80113-9) Hematology Comments: (test code = 25661-0) [facility] Description: CBC With Differential/Fyblkght4262-79-43 04:00:00 Test Item Value Reference Range Interpretation [...] (test 1 % Not Estab. code = 61161-6) Immature Grans (Abs) (test code 0.0 x10E3/uL 0.0-0.1 = 75125-2) NRBC (test code = 48389-6) Hematology Comments: (test code = 10153-0) [facility] Description: CBC With Differential/Hjaqztpz7830-23-60 04:00:00 Test Item Value Reference Range Interpretation [...] (test 1 % Not Estab. code = 36695-9) Immature Grans (Abs) (test code 0.0 x10E3/uL 0.0-0.1 = 74739-4) NRBC (test code = 63969-8) Hematology Comments: (test code = 87598-7) [facility] Description: CBC With Differential/Gzlmpwjx7254-64-38 04:00:00 Test Item Value Reference Range Interpretation [...] (test 1 % Not Estab. code = 11340-6) Immature Grans (Abs) (test code 0.0 x10E3/uL 0.0-0.1 = 42913-1) NRBC (test code = 60835-3) Hematology Comments: (test code = 88955-8) [facility]: CBC With Differential/Prrutlik4922-86-57 04:00:00 Test Item Value Reference Range Interpretation [...] (test 1 % Not Estab. code = 27537-0) Immature Grans (Abs) (test code 0.0 x10E3/uL 0.0-0.1 = 19114-4) NRBC (test code = 15590-8) Hematology Comments: (test code = 11332-8) [facility] Description: CBC With Differential/Dukczjem8854-41-22 04:00:00 Test Item Value Reference Range Interpretation [...] (test 1 % Not Estab. code = 92397-6) Immature Grans (Abs) (test code 0.0 x10E3/uL 0.0-0.1 = 09855-6) NRBC (test code = 04580-7) Hematology Comments: (test code = 97051-3) [facility]: CBC With Differential/Azyqgfwl9208-98-67 04:00:00 Test Item Value Reference Range Interpretation [...] (test 1 % Not Estab. code = 99455-9) Immature Grans (Abs) (test code 0.0 x10E3/uL 0.0-0.1 = 75693-8) NRBC (test code = 83975-7) Hematology Comments: (test code = 49501-1) [facility]: CBC With Differential/Iujldyle5301-87-25 04:00:00 Test Item Value Reference Range Interpretation [...] (test 1 % Not Estab. code = 40179-6) Immature Grans (Abs) (test code 0.0 x10E3/uL 0.0-0.1 = 49468-0) NRBC (test code = 38118-9) Hematology Comments: (test code = 32588-0) [facility]: CBC With Differential/Blevzuul0642-63-59 04:00:00 Test Item Value Reference Range Interpretation [...] (test 1 % Not Estab. code = 70479-5) Immature Grans (Abs) (test code 0.0 x10E3/uL 0.0-0.1 = 32016-3) NRBC (test code = 44734-0) Hematology Comments: (test code = 43737-9) [facility]: Magnesium [Mass/volume] in Serum or Plasma 2020-10-30 02:31:00 Test Item Value Reference Range Interpretation Comments Magnesium (test code = 73427-4) 1.6 mg/dL 1.6-2.3 [facility] Description: Magnesium [Mass/volume] in Serum or Plasma 2020-10-30 02:31:00 Test Item Value Reference Range Interpretation Comments Magnesium (test code = 19295-1) 1.6 mg/dL 1.6-2.3 [facility] Description: Magnesium [Mass/volume] in Serum or Plasma 2020-10-30 02:31:00 Test Item Value Reference Range Interpretation Comments Magnesium (test code = 48524-6) 1.6 mg/dL 1.6-2.3 [facility] Description: Magnesium [Mass/volume] in Serum or Plasma 2020-10-30 02:31:00 Test Item Value Reference Range Interpretation Comments Magnesium (test code = 65228-6) 1.6 mg/dL 1.6-2.3 [facility] Description: Magnesium [Mass/volume] in Serum or Plasma 2020-10-30 02:31:00 Test Item Value Reference Range Interpretation Comments Magnesium (test code = 69166-3) 1.6 mg/dL 1.6-2.3 [facility] Description: Magnesium [Mass/volume] in Serum or Plasma 2020-10-30 02:31:00 Test Item Value Reference Range Interpretation Comments Magnesium (test code = 16732-9) 1.6 mg/dL 1.6-2.3 [facility] Description: Magnesium [Mass/volume] in Serum or Plasma 2020-10-30 02:31:00 Test Item Value Reference Range Interpretation Comments Magnesium (test code = 39827-9) 1.6 mg/dL 1.6-2.3 [facility] Description: Magnesium [Mass/volume] in Serum or Plasma 2020-10-30 02:31:00 Test Item Value Reference Range Interpretation Comments Magnesium (test code = 60046-2) 1.6 mg/dL 1.6-2.3 [facility] Description: Magnesium [Mass/volume] in Serum or Plasma 2020-10-30 02:31:00 Test Item Value Reference Range Interpretation Comments Magnesium (test code = 59854-3) 1.6 mg/dL 1.6-2.3 [facility] Description: Magnesium [Mass/volume] in Serum or Plasma 2020-10-30 02:31:00 Test Item Value Reference Range Interpretation Comments Magnesium (test code = 54072-5) 1.6 mg/dL 1.6-2.3 [facility] Description: Magnesium [Mass/volume] in Serum or Plasma 2020-10-30 02:31:00 Test Item Value Reference Range Interpretation Comments Magnesium (test code = 09264-1) 1.6 mg/dL 1.6-2.3 [facility] Description: Magnesium [Mass/volume] in Serum or Plasma 2020-10-30 02:31:00 Test Item Value Reference Range Interpretation Comments Magnesium (test code = 62548-4) 1.6 mg/dL 1.6-2.3 [facility] Description: Magnesium [Mass/volume] in Serum or Plasma 2020-10-30 02:31:00 Test Item Value Reference Range Interpretation Comments Magnesium (test code = 22928-2) 1.6 mg/dL 1.6-2.3 [facility] Description: Magnesium [Mass/volume] in Serum or Plasma 2020-10-30 02:31:00 Test Item Value Reference Range Interpretation Comments Magnesium (test code = 61211-5) 1.6 mg/dL 1.6-2.3 [facility] Description: Magnesium [Mass/volume] in Serum or Plasma 2020-10-30 02:31:00 Test Item Value Reference Range Interpretation Comments Magnesium (test code = 31590-6) 1.6 mg/dL 1.6-2.3 [facility] Description: Magnesium [Mass/volume] in Serum or Plasma 2020-10-30 02:31:00 Test Item Value Reference Range Interpretation Comments Magnesium (test code = 20391-5) 1.6 mg/dL 1.6-2.3 [facility] Description: Magnesium [Mass/volume] in Serum or Plasma 2020-10-30 02:31:00 Test Item Value Reference Range Interpretation Comments Magnesium (test code = 62860-7) 1.6 mg/dL 1.6-2.3 [facility] Description: Magnesium [Mass/volume] in Serum or Plasma 2020-10-30 02:31:00 Test Item Value Reference Range Interpretation Comments Magnesium (test code = 37699-4) 1.6 mg/dL 1.6-2.3 [facility] Description: Magnesium [Mass/volume] in Serum or Plasma 2020-10-30 02:31:00 Test Item Value Reference Range Interpretation Comments Magnesium (test code = 71468-1) 1.6 mg/dL 1.6-2.3 [facility] Description: Magnesium [Mass/volume] in Serum or Plasma 2020-10-30 02:31:00 Test Item Value Reference Range Interpretation Comments Magnesium (test code = 44146-5) 1.6 mg/dL 1.6-2.3 [facility] Description: Lipid [id number] 02:17:00 Test Item Value Reference Range Interpretation Comments Cholesterol, Total (test code = 167 mg/dL 046-916 0485-3) Triglycerides (test code = 2571-8) 60 mg/dL 0-149 HDL Cholesterol (test code = 33 mg/dL >39 L 2084-9) VLDL Cholesterol Renuka (test code = 12 mg/dL 5-40 06553-3) LDL Chol Calc (NIH) (test code = 122 mg/dL 0-99 H 42682-9) Comment: (test code = 70871-0) [facility] Description: Lipid [id number] 02:17:00 Test Item Value Reference Range Interpretation Comments Cholesterol, Total (test code = 167 mg/dL 757-344 1567-3) Triglycerides (test code = 2571-8) 60 mg/dL 0-149 HDL Cholesterol (test code = 33 mg/dL >39 L 2084-9) VLDL Cholesterol Renuka (test code = 12 mg/dL 5-40 32153-9) LDL Chol Calc (NIH) (test code = 122 mg/dL 0-99 H 78005-5) Comment: (test code = 00261-9) [facility] Description: Lipid [id number] 02:17:00 Test Item Value Reference Range Interpretation Comments Cholesterol, Total (test code = 167 mg/dL 346-700 5745-3) Triglycerides (test code = 2571-8) 60 mg/dL 0-149 HDL Cholesterol (test code = 33 mg/dL >39 L 5-9) VLDL Cholesterol Renuka (test code = 12 mg/dL 5-40 62112-7) LDL Chol Calc (NIH) (test code = 122 mg/dL 0-99 H 03680-2) Comment: (test code = 25389-0) [facility] Description: Lipid [id number] 02:17:00 Test Item Value Reference Range Interpretation Comments Cholesterol, Total (test code = 167 mg/dL 023-183 8814-3) Triglycerides (test code = 2571-8) 60 mg/dL 0-149 HDL Cholesterol (test code = 33 mg/dL >39 L 2085-9) VLDL Cholesterol Renuka (test code = 12 mg/dL 5-40 86675-8) LDL Chol Calc (NIH) (test code = 122 mg/dL 0-99 H 58167-4) Comment: (test code = 23138-4) [facility] Description: Lipid [id number] 02:17:00 Test Item Value Reference Range Interpretation Comments Cholesterol, Total (test code = 167 mg/dL 721-595 1778-3) Triglycerides (test code = 2571-8) 60 mg/dL 0-149 HDL Cholesterol (test code = 33 mg/dL >39 L 5-9) VLDL Cholesterol Renuka (test code = 12 mg/dL 5-40 77294-0) LDL Chol Calc (NIH) (test code = 122 mg/dL 0-99 H 03218-2) Comment: (test code = 16973-0) [facility] Description: Lipid [id number] 02:17:00 Test Item Value Reference Range Interpretation Comments Cholesterol, Total (test code = 167 mg/dL 839-089 3804-3) Triglycerides (test code = 2571-8) 60 mg/dL 0-149 HDL Cholesterol (test code = 33 mg/dL >39 L 5-9) VLDL Cholesterol Renuka (test code = 12 mg/dL 5-40 50210-4) LDL Chol Calc (NIH) (test code = 122 mg/dL 0-99 H 16859-0) Comment: (test code = 21718-4) [facility] Description: Lipid [id number] 02:17:00 Test Item Value Reference Range Interpretation Comments Cholesterol, Total (test code = 167 mg/dL 527-203 3126-3) Triglycerides (test code = 2571-8) 60 mg/dL 0-149 HDL Cholesterol (test code = 33 mg/dL >39 L 5-9) VLDL Cholesterol Renuka (test code = 12 mg/dL 5-40 63254-3) LDL Chol Calc (NIH) (test code = 122 mg/dL 0-99 H 41353-6) Comment: (test code = 93480-4) [facility] Description: Lipid [id number] 02:17:00 Test Item Value Reference Range Interpretation Comments Cholesterol, Total (test code = 167 mg/dL 145-738 4922-3) Triglycerides (test code = 2571-8) 60 mg/dL 0-149 HDL Cholesterol (test code = 33 mg/dL >39 L 2085-9) VLDL Cholesterol Renuka (test code = 12 mg/dL 5-40 07799-8) LDL Chol Calc (NIH) (test code = 122 mg/dL 0-99 H 68616-4) Comment: (test code = 88424-3) [facility] Description: Lipid [id number] 02:17:00 Test Item Value Reference Range Interpretation Comments Cholesterol, Total (test code = 167 mg/dL 863-409 4568-3) Triglycerides (test code = 2571-8) 60 mg/dL 0-149 HDL Cholesterol (test code = 33 mg/dL >39 L 2085-9) VLDL Cholesterol Renuka (test code = 12 mg/dL 5-40 52922-1) LDL Chol Calc (NIH) (test code = 122 mg/dL 0-99 H 11239-0) Comment: (test code = 81553-6) [facility] Description: Lipid [id number] 02:17:00 Test Item Value Reference Range Interpretation Comments Cholesterol, Total (test code = 167 mg/dL 244-924 4400-3) Triglycerides (test code = 2571-8) 60 mg/dL 0-149 HDL Cholesterol (test code = 33 mg/dL >39 L 2085-9) VLDL Cholesterol Renuka (test code = 12 mg/dL 5-40 89993-2) LDL Chol Calc (NIH) (test code = 122 mg/dL 0-99 H 49496-7) Comment: (test code = 42424-3) [facility] Description: Lipid [id number] 02:17:00 Test Item Value Reference Range Interpretation Comments Cholesterol, Total (test code = 167 mg/dL 628-967 8446-3) Triglycerides (test code = 2571-8) 60 mg/dL 0-149 HDL Cholesterol (test code = 33 mg/dL >39 L 2085-9) VLDL Cholesterol Renuka (test code = 12 mg/dL 5-40 13166-0) LDL Chol Calc (NIH) (test code = 122 mg/dL 0-99 H 72761-1) Comment: (test code = 40934-0) [facility] Description: Lipid [id number] 02:17:00 Test Item Value Reference Range Interpretation Comments Cholesterol, Total (test code = 167 mg/dL 146-610 6528-3) Triglycerides (test code = 2571-8) 60 mg/dL 0-149 HDL Cholesterol (test code = 33 mg/dL >39 L 2085-9) VLDL Cholesterol Renuka (test code = 12 mg/dL 5-40 31439-9) LDL Chol Calc (NIH) (test code = 122 mg/dL 0-99 H 07915-0) Comment: (test code = 69933-5) [facility] Description: Lipid [id number] 02:17:00 Test Item Value Reference Range Interpretation Comments Cholesterol, Total (test code = 167 mg/dL 143-612 3526-3) Triglycerides (test code = 2571-8) 60 mg/dL 0-149 HDL Cholesterol (test code = 33 mg/dL >39 L 5-9) VLDL Cholesterol Renuka (test code = 12 mg/dL 5-40 94086-7) LDL Chol Calc (NIH) (test code = 122 mg/dL 0-99 H 89405-5) Comment: (test code = 80920-5) [facility] Description: Lipid [id number] 02:17:00 Test Item Value Reference Range Interpretation Comments Cholesterol, Total (test code = 167 mg/dL 614-340 4686-3) Triglycerides (test code = 2571-8) 60 mg/dL 0-149 HDL Cholesterol (test code = 33 mg/dL >39 L 2085-9) VLDL Cholesterol Renuka (test code = 12 mg/dL 5-40 05660-8) LDL Chol Calc (NIH) (test code = 122 mg/dL 0-99 H 03922-7) Comment: (test code = 97059-2) [facility] Description: Lipid [id number] 02:17:00 Test Item Value Reference Range Interpretation Comments Cholesterol, Total (test code = 167 mg/dL 230-667 8857-3) Triglycerides (test code = 2571-8) 60 mg/dL 0-149 HDL Cholesterol (test code = 33 mg/dL >39 L 2085-9) VLDL Cholesterol Renuka (test code = 12 mg/dL 5-40 27325-3) LDL Chol Calc (NIH) (test code = 122 mg/dL 0-99 H 34862-7) Comment: (test code = 65467-5) [facility] Description: Lipid [id number] 02:17:00 Test Item Value Reference Range Interpretation Comments Cholesterol, Total (test code = 167 mg/dL 660-837 9689-3) Triglycerides (test code = 2571-8) 60 mg/dL 0-149 HDL Cholesterol (test code = 33 mg/dL >39 L 2085-9) VLDL Cholesterol Renuka (test code = 12 mg/dL 5-40 10814-6) LDL Chol Calc (NIH) (test code = 122 mg/dL 0-99 H 57353-3) Comment: (test code = 46176-8) [facility] Description: Lipid [id number] 02:17:00 Test Item Value Reference Range Interpretation Comments Cholesterol, Total (test code = 167 mg/dL 661-314 9548-3) Triglycerides (test code = 2571-8) 60 mg/dL 0-149 HDL Cholesterol (test code = 33 mg/dL >39 L 5-9) VLDL Cholesterol Renuka (test code = 12 mg/dL 5-40 17370-3) LDL Chol Calc (NIH) (test code = 122 mg/dL 0-99 H 06804-5) Comment: (test code = 04338-2) [facility] Description: Lipid [id number] 02:17:00 Test Item Value Reference Range Interpretation Comments Cholesterol, Total (test code = 167 mg/dL 743-647 1982-3) Triglycerides (test code = 2571-8) 60 mg/dL 0-149 HDL Cholesterol (test code = 33 mg/dL >39 L 2085-9) VLDL Cholesterol Renuka (test code = 12 mg/dL 5-40 25113-3) LDL Chol Calc (NIH) (test code = 122 mg/dL 0-99 H 93383-0) Comment: (test code = 32280-5) [facility] Description: Lipid [id number] 02:17:00 Test Item Value Reference Range Interpretation Comments Cholesterol, Total (test code = 167 mg/dL 967-294 6470-3) Triglycerides (test code = 2571-8) 60 mg/dL 0-149 HDL Cholesterol (test code = 33 mg/dL >39 L 2085-9) VLDL Cholesterol Renuka (test code = 12 mg/dL 5-40 18646-1) LDL Chol Calc (NIH) (test code = 122 mg/dL 0-99 H 30520-3) Comment: (test code = 92520-1) [facility] Description: Lipid [id number] 02:17:00 Test Item Value Reference Range Interpretation Comments Cholesterol, Total (test code = 167 mg/dL 768-092 2153-3) Triglycerides (test code = 2571-8) 60 mg/dL 0-149 HDL Cholesterol (test code = 33 mg/dL >39 L 2085-9) VLDL Cholesterol Renuka (test code = 12 mg/dL 5-40 78086-5) LDL Chol Calc (NIH) (test code = 122 mg/dL 0-99 H 14827-3) Comment: (test code = 88953-6) [facility] Description: Comp. Metabolic Panel (14)2020-10-30 01:58:00 Test Item Value Reference Range Interpretation Comments Glucose (test code 50 mg/dL 65-99 L = 2345-7) BUN (test code = 52 mg/dL 6-24 H 3094-0) Creatinine (test 2.04 mg/dL 0.76-1.27 H code = 2160-0) eGFR If NonAfricn 38 >59 L Am (test code = mL/min/1.73 43467-8) eGFR If Africn Am 44 >59 L [facility] currently (test code = mL/min/1.73 [place] [address]-8) compliance with the current recommendations of the National Kidney Foundation. [place] will update re porting as new guidelin es are published from the NKF-ASN Task force.
<br/ >Perfor med by:
Lab [place] Kaur (HD)

BUN/Creatinine 25 9-20 H Ratio (test code = 3097-3) Sodium (test code = 142 mmol/L 952-376 2051-2) Potassium (test 4.1 mmol/L 3.5-5.2 code = 2823-3) Chloride (test code 103 mmol/L 96-106 = 2075-0) Carbon Dioxide, 27 mmol/L 20-29 Total (test code = 2027-9) Calcium (test code 8.8 mg/dL 8.7-10.2 = 61771-2) Protein, Total 6.8 g/dL 6.0-8.5 (test code = 2885-2) Albumin (test code 3.3 g/dL 4.0-5.0 L = 1751-7) Globulin, Total 3.5 g/dL 1.5-4.5 (test code = 18089-4) A/G Ratio (test 0.9 1.2-2.2 L code = 1759-0) Bilirubin, Total 0.7 mg/dL 0.0-1.2 (test code = 1975-2) Alkaline 140 IU/L 48-121 H Phosphatase (test code = 6768-6) AST (SGOT) (test 14 IU/L 0-40 code = 1920-8) ALT (SGPT) (test 21 IU/L 0-44 code = 1742-6) [facility] Description: Comp. Metabolic Panel (14)2020-10-30 01:58:00 Test Item Value Reference Range Interpretation Comments Glucose (test code 50 mg/dL 65-99 L = 2345-7) BUN (test code = 52 mg/dL 6-24 H 3094-0) Creatinine (test 2.04 mg/dL 0.76-1.27 H code = 2160-0) eGFR If NonAfricn 38 >59 L Am (test code = mL/min/1.73 96403-3) eGFR If Africn Am 44 >59 L [facility] currently (test code = mL/min/1.73 [place] [address]-4) compliance with the current recommendations of the National Kidney Foundation. [place] will update re porting as new guidelin es are published from the NKF-ASN Task force.
<br/ >Perfor med by:
Lab [place] (HD)

BUN/Creatinine 25 9-20 H Ratio (test code = 3097-3) Sodium (test code = 142 mmol/L 723-503 2830-2) Potassium (test 4.1 mmol/L 3.5-5.2 code = 2823-3) Chloride (test code 103 mmol/L 96-106 = 2075-0) Carbon Dioxide, 27 mmol/L 20-29 Total (test code = 2027-) Calcium (test code 8.8 mg/dL 8.7-10.2 = 38144-2) Protein, Total 6.8 g/dL 6.0-8.5 (test code = 2885-2) Albumin (test code 3.3 g/dL 4.0-5.0 L = 1751-7) Globulin, Total 3.5 g/dL 1.5-4.5 (test code = 18439-1) A/G Ratio (test 0.9 1.2-2.2 L code = 1759-0) Bilirubin, Total 0.7 mg/dL 0.0-1.2 (test code = 1975-2) Alkaline 140 IU/L 48-121 H Phosphatase (test code = 6768-6) AST (SGOT) (test 14 IU/L 0-40 code = 1920-8) ALT (SGPT) (test 21 IU/L 0-44 code = 1742-6) [facility] Description: Comp. Metabolic Panel (14)2020-10-30 01:58:00 Test Item Value Reference Range Interpretation Comments Glucose (test code 50 mg/dL 65-99 L = 2345-7) BUN (test code = 52 mg/dL 6-24 H 3094-0) Creatinine (test 2.04 mg/dL 0.76-1.27 H code = 2160-0) eGFR If NonAfricn 38 >59 L Am (test code = mL/min/1.73 64497-9) eGFR If Africn Am 44 >59 L [facility] currently (test code = mL/min/1[place]73 [place] [address]-8) compliance with the current recommendations of the National Kidney Foundation. [place] will update re porting as new guidelin es are published from the NKF-ASN Task force.
<br/ >Perfor med by:
Lab [place] Kaur (HD)

BUN/Creatinine 25 9-20 H Ratio (test code = 3097-3) Sodium (test code = 142 mmol/L 861-622 0640-2) Potassium (test 4.1 mmol/L 3.5-5.2 code = 2823-3) Chloride (test code 103 mmol/L 96-106 = 2075-0) Carbon Dioxide, 27 mmol/L 20-29 Total (test code = 2027-9) Calcium (test code 8.8 mg/dL 8.7-10.2 = 91581-8) Protein, Total 6.8 g/dL 6.0-8.5 (test code = 2885-2) Albumin (test code 3.3 g/dL 4.0-5.0 L = 1751-7) Globulin, Total 3.5 g/dL 1.5-4.5 (test code = 53606-1) A/G Ratio (test 0.9 1.2-2.2 L code = 1759-0) Bilirubin, Total 0.7 mg/dL 0.0-1.2 (test code = 1975-2) Alkaline 140 IU/L 48-121 H Phosphatase (test code = 6768-6) AST (SGOT) (test 14 IU/L 0-40 code = 1920-8) ALT (SGPT) (test 21 IU/L 0-44 code = 1742-6) [facility] Description: Comp. Metabolic Panel (14)2020-10-30 01:58:00 Test Item Value Reference Range Interpretation Comments Glucose (test code 50 mg/dL 65-99 L = 2345-7) BUN (test code = 52 mg/dL 6-24 H 3094-0) Creatinine (test 2.04 mg/dL 0.76-1.27 H code = 2160-0) eGFR If NonAfricn 38 >59 L Am (test code = mL/min/1.73 74266-9) eGFR If Africn Am 44 >59 L [facility] currently (test code = mL/min/1.73 [place] [address]-8) compliance with the current recommendations of the National Kidney Foundation. [place] will update re porting as new guidelin es are published from the NKF-ASN Task force.
<br/ >Perfor med by:
Lab [place] Kaur (HD)

BUN/Creatinine 25 9-20 H Ratio (test code = 3097-3) Sodium (test code = 142 mmol/L 607-099 9443-2) Potassium (test 4.1 mmol/L 3.5-5.2 code = 2823-3) Chloride (test code 103 mmol/L 96-106 = 2075-0) Carbon Dioxide, 27 mmol/L 20-29 Total (test code = 2027-) Calcium (test code 8.8 mg/dL 8.7-10.2 = 20947-8) Protein, Total 6.8 g/dL 6.0-8.5 (test code = 2885-2) Albumin (test code 3.3 g/dL 4.0-5.0 L = 1751-7) Globulin, Total 3.5 g/dL 1.5-4.5 (test code = 79296-2) A/G Ratio (test 0.9 1.2-2.2 L code = 1759-0) Bilirubin, Total 0.7 mg/dL 0.0-1.2 (test code = 1975-2) Alkaline 140 IU/L 48-121 H Phosphatase (test code = 6768-6) AST (SGOT) (test 14 IU/L 0-40 code = 1920-8) ALT (SGPT) (test 21 IU/L 0-44 code = 1742-6) [facility] Description: Comp. Metabolic Panel (14)2020-10-30 01:58:00 Test Item Value Reference Range Interpretation Comments Glucose (test code 50 mg/dL 65-99 L = 2345-7) BUN (test code = 52 mg/dL 6-24 H 3094-0) Creatinine (test 2.04 mg/dL 0.76-1.27 H code = 2160-0) eGFR If NonAfricn 38 >59 L Am (test code = mL/min/1.73 13609-3) eGFR If Africn Am 44 >59 L [facility] currently (test code = mL/min/1.73 [place] [address]-7) compliance with the current recommendations of the National Kidney Foundation. [place] will update re porting as new guidelin es are published from the NKF-ASN Task force.
<br/ >Perfor med by:
Lab [place] (HD)

BUN/Creatinine 25 9-20 H Ratio (test code = 3097-3) Sodium (test code = 142 mmol/L 586-692 3853-2) Potassium (test 4.1 mmol/L 3.5-5.2 code = 2823-3) Chloride (test code 103 mmol/L 96-106 = 2075-0) Carbon Dioxide, 27 mmol/L 20-29 Total (test code = 2027-) Calcium (test code 8.8 mg/dL 8.7-10.2 = 66262-9) Protein, Total 6.8 g/dL 6.0-8.5 (test code = 2885-2) Albumin (test code 3.3 g/dL 4.0-5.0 L = 1751-7) Globulin, Total 3.5 g/dL 1.5-4.5 (test code = 18132-5) A/G Ratio (test 0.9 1.2-2.2 L code = 1759-0) Bilirubin, Total 0.7 mg/dL 0.0-1.2 (test code = 1975-2) Alkaline 140 IU/L 48-121 H Phosphatase (test code = 6768-6) AST (SGOT) (test 14 IU/L 0-40 code = 1920-8) ALT (SGPT) (test 21 IU/L 0-44 code = 1742-6) [facility] Description: Comp. Metabolic Panel (14)2020-10-30 01:58:00 Test Item Value Reference Range Interpretation Comments Glucose (test code 50 mg/dL 65-99 L = 2345-7) BUN (test code = 52 mg/dL 6-24 H 3094-0) Creatinine (test 2.04 mg/dL 0.76-1.27 H code = 2160-0) eGFR If NonAfricn 38 >59 L Am (test code = mL/min/1.73 38550-0) eGFR If Africn Am 44 >59 L [facility] currently (test code = mL/min/1.73 [place] [address]-5) compliance with the current recommendations of the National Kidney Foundation. [place] will update re porting as new guidelin es are published from the NKF-ASN Task force.
<br/ >Perfor med by:
Lab [place] Kaur (HD)

BUN/Creatinine 25 9-20 H Ratio (test code = 3097-3) Sodium (test code = 142 mmol/L 228-403 5409-2) Potassium (test 4.1 mmol/L 3.5-5.2 code = 2823-3) Chloride (test code 103 mmol/L 96-106 = 2075-0) Carbon Dioxide, 27 mmol/L 20-29 Total (test code = 2027-) Calcium (test code 8.8 mg/dL 8.7-10.2 = 95369-9) Protein, Total 6.8 g/dL 6.0-8.5 (test code = 2885-2) Albumin (test code 3.3 g/dL 4.0-5.0 L = 1751-7) Globulin, Total 3.5 g/dL 1.5-4.5 (test code = 02526-5) A/G Ratio (test 0.9 1.2-2.2 L code = 1759-0) Bilirubin, Total 0.7 mg/dL 0.0-1.2 (test code = 1975-2) Alkaline 140 IU/L 48-121 H Phosphatase (test code = 6768-6) AST (SGOT) (test 14 IU/L 0-40 code = 1920-8) ALT (SGPT) (test 21 IU/L 0-44 code = 1742-6) [facility] Description: Comp. Metabolic Panel (14)2020-10-30 01:58:00 Test Item Value Reference Range Interpretation Comments Glucose (test code 50 mg/dL 65-99 L = 2345-7) BUN (test code = 52 mg/dL 6-24 H 3094-0) Creatinine (test 2.04 mg/dL 0.76-1.27 H code = 2160-0) eGFR If NonAfricn 38 >59 L Am (test code = mL/min/1.73 93271-7) eGFR If Africn Am 44 >59 L [facility] currently (test code = mL/min/1.73 [place] [address]-5) compliance with the current recommendations of the National Kidney Foundation. [place] will update re porting as new guidelin es are published from the NKF-ASN Task force.
<br/ >Perfor med by:
Lab [place] Kaur (HD)

BUN/Creatinine 25 9-20 H Ratio (test code = 3097-3) Sodium (test code = 142 mmol/L 343-965 9448-2) Potassium (test 4.1 mmol/L 3.5-5.2 code = 2823-3) Chloride (test code 103 mmol/L 96-106 = 2075-0) Carbon Dioxide, 27 mmol/L 20-29 Total (test code = 2027-) Calcium (test code 8.8 mg/dL 8.7-10.2 = 98283-0) Protein, Total 6.8 g/dL 6.0-8.5 (test code = 2885-2) Albumin (test code 3.3 g/dL 4.0-5.0 L = 1751-7) Globulin, Total 3.5 g/dL 1.5-4.5 (test code = 82182-6) A/G Ratio (test 0.9 1.2-2.2 L code = 1759-0) Bilirubin, Total 0.7 mg/dL 0.0-1.2 (test code = 1975-2) Alkaline 140 IU/L 48-121 H Phosphatase (test code = 6768-6) AST (SGOT) (test 14 IU/L 0-40 code = 1920-8) ALT (SGPT) (test 21 IU/L 0-44 code = 1742-6) [facility]: Comp. Metabolic Panel (14)2020-10-30 01:58:00 Test Item Value Reference Range Interpretation Comments Glucose (test code 50 mg/dL 65-99 L = 2345-7) BUN (test code = 52 mg/dL 6-24 H 3094-0) Creatinine (test 2.04 mg/dL 0.76-1.27 H code = 2160-0) eGFR If NonAfricn 38 >59 L Am (test code = mL/min/1.73 92048-6) eGFR If Africn Am 44 >59 L [facility] currently (test code = mL/min/1.73 [place] [address]-3) compliance with the current recommendations of the National Kidney Foundation. [place] will update re porting as new guidelin es are published from the NKF-ASN Task force.
<br/ >Perfor med by:
Lab [place] Kaur (HD)

BUN/Creatinine 25 9-20 H Ratio (test code = 3097-3) Sodium (test code = 142 mmol/L 986-233 0960-2) Potassium (test 4.1 mmol/L 3.5-5.2 code = 2823-3) Chloride (test code 103 mmol/L 96-106 = 2075-0) Carbon Dioxide, 27 mmol/L 20-29 Total (test code = 2027-) Calcium (test code 8.8 mg/dL 8.7-10.2 = 27520-8) Protein, Total 6.8 g/dL 6.0-8.5 (test code = 2885-2) Albumin (test code 3.3 g/dL 4.0-5.0 L = 1751-7) Globulin, Total 3.5 g/dL 1.5-4.5 (test code = 73467-4) A/G Ratio (test 0.9 1.2-2.2 L code = 1759-0) Bilirubin, Total 0.7 mg/dL 0.0-1.2 (test code = 1975-2) Alkaline 140 IU/L 48-121 H Phosphatase (test code = 6768-6) AST (SGOT) (test 14 IU/L 0-40 code = 1920-8) ALT (SGPT) (test 21 IU/L 0-44 code = 1742-6) [facility] Description: Comp. Metabolic Panel (14)2020-10-30 01:58:00 Test Item Value Reference Range Interpretation Comments Glucose (test code 50 mg/dL 65-99 L = 2345-7) BUN (test code = 52 mg/dL 6-24 H 3094-0) Creatinine (test 2.04 mg/dL 0.76-1.27 H code = 2160-0) eGFR If NonAfricn 38 >59 L Am (test code = mL/min/1.73 21423-9) eGFR If Africn Am 44 >59 L [facility] currently (test code = mL/min/1[place]73 [place] [address]-1) compliance with the current recommendations of the [employer]. [facility] [place] will update re porting as new guidelin es are published from the NKF-ASN Task force.
<br/ >Perfor med by:
[facility]aur (HD)

BUN/Creatinine 25 9-20 H Ratio (test code = 3097-3) Sodium (test code = 142 mmol/L 031-466 0081-2) Potassium (test 4.1 mmol/L 3.5-5.2 code = 2823-3) Chloride (test code 103 mmol/L 96-106 = 2075-0) Carbon Dioxide, 27 mmol/L 20-29 Total (test code = 2027-9) Calcium (test code 8.8 mg/dL 8.7-10.2 = 58662-0) Protein, Total 6.8 g/dL 6.0-8.5 (test code = 2885-2) Albumin (test code 3.3 g/dL 4.0-5.0 L = 1751-7) Globulin, Total 3.5 g/dL 1.5-4.5 (test code = 56969-7) A/G Ratio (test 0.9 1.2-2.2 L code = 1759-0) Bilirubin, Total 0.7 mg/dL 0.0-1.2 (test code = 1975-2) Alkaline 140 IU/L 48-121 H Phosphatase (test code = 6768-6) AST (SGOT) (test 14 IU/L 0-40 code = 1920-8) ALT (SGPT) (test 21 IU/L 0-44 code = 1742-6) [facility] Description: Comp. Metabolic Panel (14)2020-10-30 01:58:00 Test Item Value Reference Range Interpretation Comments Glucose (test code 50 mg/dL 65-99 L = 2345-7) BUN (test code = 52 mg/dL 6-24 H 3094-0) Creatinine (test 2.04 mg/dL 0.76-1.27 H code = 2160-0) eGFR If NonAfricn 38 >59 L Am (test code = mL/min/1.73 78259-2) eGFR If Africn Am 44 >59 L [facility] currently (test code = mL/min/1.73 reports eGFR in 23791-0) compliance with the current recommendations of the [employer]. [place] will update re porting as new guidelin es are published from the NKF-ASN Task force.
<br/ >Perfor med by:
[facility] [place] (HD)

BUN/Creatinine 25 9-20 H Ratio (test code = 3097-3) Sodium (test code = 142 mmol/L 993-064 1652-2) Potassium (test 4.1 mmol/L 3.5-5.2 code = 2823-3) Chloride (test code 103 mmol/L 96-106 = 2075-0) Carbon Dioxide, 27 mmol/L 20-29 Total (test code = 2027-9) Calcium (test code 8.8 mg/dL 8.7-10.2 = 75203-4) Protein, Total 6.8 g/dL 6.0-8.5 (test code = 2885-2) Albumin (test code 3.3 g/dL 4.0-5.0 L = 1751-7) Globulin, Total 3.5 g/dL 1.5-4.5 (test code = 00677-9) A/G Ratio (test 0.9 1.2-2.2 L code = 1759-0) Bilirubin, Total 0.7 mg/dL 0.0-1.2 (test code = 1975-2) Alkaline 140 IU/L 48-121 H Phosphatase (test code = 6768-6) AST (SGOT) (test 14 IU/L 0-40 code = 1920-8) ALT (SGPT) (test 21 IU/L 0-44 code = 1742-6) [facility] Description: Comp. Metabolic Panel (14)2020-10-30 01:58:00 Test Item Value Reference Range Interpretation Comments Glucose (test code 50 mg/dL 65-99 L = 2345-7) BUN (test code = 52 mg/dL 6-24 H 3094-0) Creatinine (test 2.04 mg/dL 0.76-1.27 H code = 2160-0) eGFR If NonAfricn 38 >59 L Am (test code = mL/min/1.73 02349-4) eGFR If Africn Am 44 >59 L [facility] currently (test code = mL/min/1.73 [place] 25703-2) compliance with the current recommendations of the [employer]. [place] will update re porting as new guidelin es are published from the NKF-ASN Task force.
<br/ >Perfor med by:
[facility] [place] [facility] (HD)

BUN/Creatinine 25 9-20 H Ratio (test code = 3097-3) Sodium (test code = 142 mmol/L 943-910 2650-2) Potassium (test 4.1 mmol/L 3.5-5.2 code = 2823-3) Chloride (test code 103 mmol/L 96-106 = 2075-0) Carbon Dioxide, 27 mmol/L 20-29 Total (test code = 2027-9) Calcium (test code 8.8 mg/dL 8.7-10.2 = 14530-6) Protein, Total 6.8 g/dL 6.0-8.5 (test code = 2885-2) Albumin (test code 3.3 g/dL 4.0-5.0 L = 1751-7) Globulin, Total 3.5 g/dL 1.5-4.5 (test code = 85377-0) A/G Ratio (test 0.9 1.2-2.2 L code = 1759-0) Bilirubin, Total 0.7 mg/dL 0.0-1.2 (test code = 1975-2) Alkaline 140 IU/L 48-121 H Phosphatase (test code = 6768-6) AST (SGOT) (test 14 IU/L 0-40 code = 1920-8) ALT (SGPT) (test 21 IU/L 0-44 code = 1742-6) [facility] Description: Comp. Metabolic Panel (14)2020-10-30 01:58:00 Test Item Value Reference Range Interpretation Comments Glucose (test code 50 mg/dL 65-99 L = 2345-7) BUN (test code = 52 mg/dL 6-24 H 3094-0) Creatinine (test 2.04 mg/dL 0.76-1.27 H code = 2160-0) eGFR If NonAfricn 38 >59 L Am (test code = mL/min/1.73 88098-0) eGFR If Africn Am 44 >59 L [facility] currently (test code = mL/min/1.73 [place] [address]84[address]-4) compliance with the current recommendations of the [employer] Kid[employer]. [place] will update re porting as new guidelin es are published from the NKF-ASN Task force.
<br/ >Perfor med by:
[facility] [place] [facility] (HD)

BUN/Creatinine 25 9-20 H Ratio (test code = 3097-3) Sodium (test code = 142 mmol/L 870-656 4351-2) Potassium (test 4.1 mmol/L 3.5-5.2 code = 2823-3) Chloride (test code 103 mmol/L 96-106 = 2075-0) Carbon Dioxide, 27 mmol/L 20-29 Total (test code = 2027-) Calcium (test code 8.8 mg/dL 8.7-10.2 = 51614-7) Protein, Total 6.8 g/dL 6.0-8.5 (test code = 2885-2) Albumin (test code 3.3 g/dL 4.0-5.0 L = 1751-7) Globulin, Total 3.5 g/dL 1.5-4.5 (test code = 79055-6) A/G Ratio (test 0.9 1.2-2.2 L code = 1759-0) Bilirubin, Total 0.7 mg/dL 0.0-1.2 (test code = 1975-2) Alkaline 140 IU/L 48-121 H Phosphatase (test code = 6768-6) AST (SGOT) (test 14 IU/L 0-40 code = 1920-8) ALT (SGPT) (test 21 IU/L 0-44 code = 1742-6) [facility] Description: Comp. Metabolic Panel (14)2020-10-30 01:58:00 Test Item Value Reference Range Interpretation Comments Glucose (test code 50 mg/dL 65-99 L = 2345-7) BUN (test code = 52 mg/dL 6-24 H 3094-0) Creatinine (test 2.04 mg/dL 0.76-1.27 H code = 2160-0) eGFR If NonAfricn 38 >59 L Am (test code = mL/min/1.73 85024-6) eGFR If Africn Am 44 >59 L [facility] currently (test code = mL/min/1.73 [place] 557[address]-9) compliance with the current recommendations of the [employer] Kid[employer]. [place] will update re porting as new guidelin es are published from the NKF-ASN Task force.
<br/ >Perfor med by:
[facility] [place] (HD)

BUN/Creatinine 25 9-20 H Ratio (test code = 3097-3) Sodium (test code = 142 mmol/L 347-308 6250-2) Potassium (test 4.1 mmol/L 3.5-5.2 code = 2823-3) Chloride (test code 103 mmol/L 96-106 = 2075-0) Carbon Dioxide, 27 mmol/L 20-29 Total (test code = 2027-) Calcium (test code 8.8 mg/dL 8.7-10.2 = 53047-7) Protein, Total 6.8 g/dL 6.0-8.5 (test code = 2885-2) Albumin (test code 3.3 g/dL 4.0-5.0 L = 1751-7) Globulin, Total 3.5 g/dL 1.5-4.5 (test code = 57853-9) A/G Ratio (test 0.9 1.2-2.2 L code = 1759-0) Bilirubin, Total 0.7 mg/dL 0.0-1.2 (test code = 1975-2) Alkaline 140 IU/L 48-121 H Phosphatase (test code = 6768-6) AST (SGOT) (test 14 IU/L 0-40 code = 1920-8) ALT (SGPT) (test 21 IU/L 0-44 code = 1742-6) [facility] Description: Comp. Metabolic Panel (14)2020-10-30 01:58:00 Test Item Value Reference Range Interpretation Comments Glucose (test code 50 mg/dL 65-99 L = 2345-7) BUN (test code = 52 mg/dL 6-24 H 3094-0) Creatinine (test 2.04 mg/dL 0.76-1.27 H code = 2160-0) eGFR If NonAfricn 38 >59 L Am (test code = mL/min/1.73 13174-6) eGFR If Africn Am 44 >59 L [facility] currently (test code = mL/min/1.73 [place] 99575-1) compliance with the current recommendations of the National Kid[employer]. [place] will update re porting as new guidelin es are published from the NKF-ASN Task force.
<br/ >Perfor med by:
[facility] [place] (HD)

BUN/Creatinine 25 9-20 H Ratio (test code = 3097-3) Sodium (test code = 142 mmol/L 695-487 3519-2) Potassium (test 4.1 mmol/L 3.5-5.2 code = 2823-3) Chloride (test code 103 mmol/L 96-106 = 2075-0) Carbon Dioxide, 27 mmol/L 20-29 Total (test code = 2027-) Calcium (test code 8.8 mg/dL 8.7-10.2 = 22544-0) Protein, Total 6.8 g/dL 6.0-8.5 (test code = 2885-2) Albumin (test code 3.3 g/dL 4.0-5.0 L = 1751-7) Globulin, Total 3.5 g/dL 1.5-4.5 (test code = 76312-2) A/G Ratio (test 0.9 1.2-2.2 L code = 1759-0) Bilirubin, Total 0.7 mg/dL 0.0-1.2 (test code = 1974-2) Alkaline 140 IU/L 48-121 H Phosphatase (test code = 6768-6) AST (SGOT) (test 14 IU/L 0-40 code = 1920-8) ALT (SGPT) (test 21 IU/L 0-44 code = 1742-6) [facility] Description: Comp. Metabolic Panel (14)2020-10-30 01:58:00 Test Item Value Reference Range Interpretation Comments Glucose (test code 50 mg/dL 65-99 L = 2345-7) BUN (test code = 52 mg/dL 6-24 H 3094-0) Creatinine (test 2.04 mg/dL 0.76-1.27 H code = 2160-0) eGFR If NonAfricn 38 >59 L Am (test code = mL/min/1.73 30518-7) eGFR If Africn Am 44 >59 L [facility] currently (test code = mL/min/1.73 [place] 60116-6) compliance with the current recommendations of the National Kid[employer] Foundation. [place] will update re porting as new guidelin es are published from the NKF-ASN Task force.
<br/ >Perfor med by:
[facility] [place] (HD)

BUN/Creatinine 25 9-20 H Ratio (test code = 3097-3) Sodium (test code = 142 mmol/L 358-614 1467-2) Potassium (test 4.1 mmol/L 3.5-5.2 code = 2823-3) Chloride (test code 103 mmol/L 96-106 = 5-0) Carbon Dioxide, 27 mmol/L 20-29 Total (test code = 2027-9) Calcium (test code 8.8 mg/dL 8.7-10.2 = 11857-1) Protein, Total 6.8 g/dL 6.0-8.5 (test code = 2885-2) Albumin (test code 3.3 g/dL 4.0-5.0 L = 1751-7) Globulin, Total 3.5 g/dL 1.5-4.5 (test code = 18793-5) A/G Ratio (test 0.9 1.2-2.2 L code = 1759-0) Bilirubin, Total 0.7 mg/dL 0.0-1.2 (test code = 1975-2) Alkaline 140 IU/L 48-121 H Phosphatase (test code = 6768-6) AST (SGOT) (test 14 IU/L 0-40 code = 1920-8) ALT (SGPT) (test 21 IU/L 0-44 code = 1742-6) [facility] Description: Comp. Metabolic Panel (14)2020-10-30 01:58:00 Test Item Value Reference Range Interpretation Comments Glucose (test code 50 mg/dL 65-99 L = 2345-7) BUN (test code = 52 mg/dL 6-24 H 3094-0) Creatinine (test 2.04 mg/dL 0.76-1.27 H code = 2160-0) eGFR If NonAfricn 38 >59 L Am (test code = mL/min/1.73 97368-7) eGFR If Africn Am 44 >59 L [facility] currently (test code = mL/min/1.73 [place] 11802-2) compliance with the current recommendations of the National Kidney Foundation. [facility] [place] will update re porting as new guidelin es are published from the NKF-ASN Task force.
<br/ >Perfor med by:
[facility] [place] (HD)

BUN/Creatinine 25 9-20 H Ratio (test code = 3097-3) Sodium (test code = 142 mmol/L 981-380 2537-2) Potassium (test 4.1 mmol/L 3.5-5.2 code = 2823-3) Chloride (test code 103 mmol/L 96-106 = 2075-0) Carbon Dioxide, 27 mmol/L 20-29 Total (test code = 2027-9) Calcium (test code 8.8 mg/dL 8.7-10.2 = 25252-0) Protein, Total 6.8 g/dL 6.0-8.5 (test code = 2885-2) Albumin (test code 3.3 g/dL 4.0-5.0 L = 1751-7) Globulin, Total 3.5 g/dL 1.5-4.5 (test code = 10448-2) A/G Ratio (test 0.9 1.2-2.2 L code = 1759-0) Bilirubin, Total 0.7 mg/dL 0.0-1.2 (test code = 1975-2) Alkaline 140 IU/L 48-121 H Phosphatase (test code = 6768-6) AST (SGOT) (test 14 IU/L 0-40 code = 1920-8) ALT (SGPT) (test 21 IU/L 0-44 code = 1742-6) [facility] Description: Comp. Metabolic Panel (14)2020-10-30 01:58:00 Test Item Value Reference Range Interpretation Comments Glucose (test code 50 mg/dL 65-99 L = 2345-7) BUN (test code = 52 mg/dL 6-24 H 3094-0) Creatinine (test 2.04 mg/dL 0.76-1.27 H code = 2160-0) eGFR If NonAfricn 38 >59 L Am (test code = mL/min/1.73 10465-1) eGFR If Africn Am 44 >59 L [facility] currently (test code = mL/min/1.73 [place] 58790-1) compliance with the current recommendations of the National Kidney [employer]. [facility] [place] will update re porting as new guidelin es are published from the NKF-ASN Task force.
<br/ >Perfor med by:
[facility] [place] (HD)

BUN/Creatinine 25 9-20 H Ratio (test code = 3097-3) Sodium (test code = 142 mmol/L 300-076 0248-2) Potassium (test 4.1 mmol/L 3.5-5.2 code = 2823-3) Chloride (test code 103 mmol/L 96-106 = 2075-0) Carbon Dioxide, 27 mmol/L 20-29 Total (test code = 2027-) Calcium (test code 8.8 mg/dL 8.7-10.2 = 13064-4) Protein, Total 6.8 g/dL 6.0-8.5 (test code = 2885-2) Albumin (test code 3.3 g/dL 4.0-5.0 L = 1751-7) Globulin, Total 3.5 g/dL 1.5-4.5 (test code = 70365-4) A/G Ratio (test 0.9 1.2-2.2 L code = 1759-0) Bilirubin, Total 0.7 mg/dL 0.0-1.2 (test code = 1975-2) Alkaline 140 IU/L 48-121 H Phosphatase (test code = 6768-6) AST (SGOT) (test 14 IU/L 0-40 code = 1920-8) ALT (SGPT) (test 21 IU/L 0-44 code = 1742-6) [facility] Description: Comp. Metabolic Panel (14)2020-10-30 01:58:00 Test Item Value Reference Range Interpretation Comments Glucose (test code 50 mg/dL 65-99 L = 2345-7) BUN (test code = 52 mg/dL 6-24 H 3094-0) Creatinine (test 2.04 mg/dL 0.76-1.27 H code = 2160-0) eGFR If NonAfricn 38 >59 L Am (test code = mL/min/1.73 04805-3) eGFR If Africn Am 44 >59 L [facility] currently (test code = mL/min/1.73 [place] 298[address]-9) compliance with the current recommendations of the [employer] Kid[employer]. [facility] [place] will update re porting as new guidelin es are published from the NKF-ASN Task force.
<br/ >Perfor med by:
[facility] [place] (HD)

BUN/Creatinine 25 9-20 H Ratio (test code = 3097-3) Sodium (test code = 142 mmol/L 318-202 3275-2) Potassium (test 4.1 mmol/L 3.5-5.2 code = 2823-3) Chloride (test code 103 mmol/L 96-106 = 2075-0) Carbon Dioxide, 27 mmol/L 20-29 Total (test code = 2027-) Calcium (test code 8.8 mg/dL 8.7-10.2 = 08363-0) Protein, Total 6.8 g/dL 6.0-8.5 (test code = 2885-2) Albumin (test code 3.3 g/dL 4.0-5.0 L = 1751-7) Globulin, Total 3.5 g/dL 1.5-4.5 (test code = 09364-0) A/G Ratio (test 0.9 1.2-2.2 L code = 1759-0) Bilirubin, Total 0.7 mg/dL 0.0-1.2 (test code = 1975-2) Alkaline 140 IU/L 48-121 H Phosphatase (test code = 6768-6) AST (SGOT) (test 14 IU/L 0-40 code = 1920-8) ALT (SGPT) (test 21 IU/L 0-44 code = 1742-6) [facility] Description: Comp. Metabolic Panel (14)2020-10-30 01:58:00 Test Item Value Reference Range Interpretation Comments Glucose (test code 50 mg/dL 65-99 L = 2345-7) BUN (test code = 52 mg/dL 6-24 H 3094-0) Creatinine (test 2.04 mg/dL 0.76-1.27 H code = 2160-0) eGFR If NonAfricn 38 >59 L Am (test code = mL/min/1.73 68390-0) eGFR If Africn Am 44 >59 L [facility] currently (test code = mL/min/1.73 [place] 07752-7) compliance with the current recommendations of the [employer] Kid[employer]. [place] will update re porting as new guidelin es are published from the NKF-ASN Task force.
<br/ >Perfor med by:
[facility] [place] (HD)

BUN/Creatinine 25 9-20 H Ratio (test code = 3097-3) Sodium (test code = 142 mmol/L 208-237 9579-2) Potassium (test 4.1 mmol/L 3.5-5.2 code = 2823-3) Chloride (test code 103 mmol/L 96-106 = 2075-0) Carbon Dioxide, 27 mmol/L 20-29 Total (test code = 2027-) Calcium (test code 8.8 mg/dL 8.7-10.2 = 37344-3) Protein, Total 6.8 g/dL 6.0-8.5 (test code = 2885-2) Albumin (test code 3.3 g/dL 4.0-5.0 L = 1751-7) Globulin, Total 3.5 g/dL 1.5-4.5 (test code = 17690-0) A/G Ratio (test 0.9 1.2-2.2 L code = 1759-0) Bilirubin, Total 0.7 mg/dL 0.0-1.2 (test code = 1975-2) Alkaline 140 IU/L 48-121 H Phosphatase (test code = 6768-6) AST (SGOT) (test 14 IU/L 0-40 code = 1920-8) ALT (SGPT) (test 21 IU/L 0-44 code = 1742-6) [facility] Description: Comp. Metabolic Panel (14)2020-10-30 01:58:00 Test Item Value Reference Range Interpretation Comments Glucose (test code 50 mg/dL 65-99 L = 2345-7) BUN (test code = 52 mg/dL 6-24 H 3094-0) Creatinine (test 2.04 mg/dL 0.76-1.27 H code = 2160-0) eGFR If NonAfricn 38 >59 L Am (test code = mL/min/1.73 28426-5) eGFR If Africn Am 44 >59 L [facility] currently (test code = mL/min/1.73 [place] 70141-0) compliance with the current recommendations of the [employer] Kid[employer]. [place] will update re porting as new guidelin es are published from the NKF-ASN Task force.
<br/ >Perfor med by:
[facility] [place] (HD)

BUN/Creatinine 25 9-20 H Ratio (test code = 3097-3) Sodium (test code = 142 mmol/L 032-189 2349-2) Potassium (test 4.1 mmol/L 3.5-5.2 code = 2823-3) Chloride (test code 103 mmol/L 96-106 = 2075-0) Carbon Dioxide, 27 mmol/L 20-29 Total (test code = 2027-) Calcium (test code 8.8 mg/dL 8.7-10.2 = 26894-2) Protein, Total 6.8 g/dL 6.0-8.5 (test code = 2885-2) Albumin (test code 3.3 g/dL 4.0-5.0 L = 1751-7) Globulin, Total 3.5 g/dL 1.5-4.5 (test code = 43277-1) A/G Ratio (test 0.9 1.2-2.2 L code = 1759-0) Bilirubin, Total 0.7 mg/dL 0.0-1.2 (test code = 1975-2) Alkaline 140 IU/L 48-121 H Phosphatase (test code = 6768-6) AST (SGOT) (test 14 IU/L 0-40 code = 1920-8) ALT (SGPT) (test 21 IU/L 0-44 code = 1742-6) [facility] HAND RIGHT COMPLETE 3 [id number] 11:29:03 [facility] [place] : 1975 Sex: MRight hand, 3 viewsLocation code: A5KQBENVAT HISTORY: Pain in second finger of right [...] Sylvester Case MD 10/29/2020 11:29 AM CDT [id number] OBTAINED CULTURE + GRAM [id number] 15:17:00 Test Item Value Reference Interpretation Comments [...] No organisms seen (BEAKER) (test code = 847123) SURGICALLY OBTAINED CULTURE + GRAM [id number] 14:58:00 Test Item Value Reference Interpretation Comments [...] No organisms seen (BEAKER) (test code = 035586) Tissue [id number] 09:25:00 Test Item Value Reference Range Interpretation Comments Case Report (test code Surgical Pathology = 104) Report Case: [id number] Authorizing Provider: Laura Nguyen MD Collected: 09/26/2020 07:56 AM Ordering Location: [address] Med/Surg Received: 09/26/2020 08:55 AM Pathologist: Hilda Mack MD Specimens: A) - Soft Tissue, Debridement, LEFT FOOT BONE CLEAN MARGIN. B) - Bone, LEFT FOOT 5TH METATARSAL HEAD. DIAGNOSIS (test code = [id number] 3220) FuZzEwMzNcZnRuYmpcdWMx IHtccnRmMVxlcGljOTIwMl ykpiJyECBgnLZsV7Vemcau GBgwAO6oTH2apWgfdSOqfK EgISHoBbCvy8qts419qJNq l6mkIQMNhavpuUr0iPkmY3 8nd9E1DxqrL95aiIGzKKzo bGFpblxmczIwIEEuIEJPTk UbLQaRCgItWr9NAZFRVPQX JgGSIFSFMK4xPZMFX4OUNT lcmRQmSCGcCI6kMe1BQKAA VmXfAwfDYr7DM87JVPLNYB FQZAYII9IXZMyoVrBOBJCM ItHuEt8TRUXJBOXLUR3UQW VPTVlFTElUSVNccGFyXHBh dcVJCwXAV81TABNPHYAGWQ RPW8ZtPSYXCN3ZZLPRCRZT MBzeISDUCJshDC7LYDRQDB pTIwyrbQZmYOEpGA1fIQPB VDUtXK0WVRLFPp4ORFCsN9 KHFI6CDGTCYNSJRwZxgTUr bTstoaTkXGvkg2InVKpsWP BeLA5urBwiFBAsHB1cWJNo O1ozvT3ebsq0NxJwAPIoMy Y9IFFycrI8Ome2SKDlIOkq t2ejg9RnNKNwYSz3cZplTf IyYAAtv5efksYmLsToLMWw YBYdZBPneZOkK945h4cgg4 sqsxOizYF7DPKrLYT0UQjy opKwfpT2WJqqcYYfTfX0TV tccmVkMFxncmVlbjBcYmx1 SZEvH053HCM6bSiqy4tmUL G2HCXxWGZhOkNlTs4rhLRo L369NCNnSIRCVAAijJo7BC GjgiZkaiMrgRSWu847F004 q6zsCLHythPwvCiRyukpq1 wpY526JDFyfDSotlPaFdVj YCAmuCIdsUQ2NJIlOK1zss fyRUfpEZcaKPGtggL2PTNo lLJzK2MzJYTcNE0rikhxUD A0ABudTKTiSOA1QoTlKUDr y2Oxetk7FgMrcf0soq53JK B1m4SpgSxfYCN5BKQ0IhQf Lw3smYAsUPEyET7rOdJgsT RiMUXyjc32lFdtQIewMDH0 NQVuswRxd1Zoc9niKnLvlu YoM1ngN9SjFTGeKLTjAHMt YrXmxjUwc9Ygw0IqbLYotH o5r1iwJXCcCBCjvQmxg9ap UYG8DLQrrAZsA3utyG2hIY YaVD5azznlh4wqCImgCJwn EXUzcMO6vwI4LFHpxELgY9 NskZ5pUMSkBBfcMLTfube6 KwHtIw6reDBrvBuiTBzzEu twYWdlXHBnbmNvbnRccGdu ZGVjXHBsYWluXHBsYWluXG YwXGZzMjRccWxcbGFuZzEw MzNcaGljaFxmMVxkYmNoXG KqQJcmU6rpLwHpYwAtDbt6 ERZsxIWtIHXsBbs9GZIxhV YuUWQLlGaxfT4iDFHjeJkq cC4rfMZ2NIAqvqAcfBYSvV 4tMNWBdL5qZgDfELAbGfE2 LTcxNjNccGFyfX0= CPT Code(s) (test code m4iaiLElWYPxtWI0VhToGE = 3357) Hlj7jzv0LieZGneDZgULoq tFZwtdLapn59vRE7hH88BA 5rHJIjObO9QJOibvF7Eud6 ZFWcFMGiwXSzT091s9vgm3 knfnLwcAP1rLzfYHQqUUWi YWluXGZzMjAgODgzMDUgWD WbCUa4QeOjUObpRHLacd5= CLINICAL HISTORY (test w7aicXWiOYEjtUX1GbLnKO code = 3356) Rco7qwa2ThvSTubIKmQLss tQItnaKltf56aAZ3mV88XF 2yXELoPgE3XIHvrjS8Mhp0 ZTBrSHCxqFMbC071e8ngp3 bcxpSrqGX7uCbxPKRcXQTm REltLYEnNwOyAMddXxA3hW JfeYfgOSCfb2AusBAxfHTu x914RXItk06eiMV7FDXxn8 d3jIFawXFhXGXwqxSyJJti cFU7swVznUCprB6bcS0tWV ZkoRumCzCvt19hfRHxi85z AGWbm4IgL9zcfONyJJWxyf Uuk2PpWj5suHhpsW3ncLNd uOYxOXIdwFyrDYJgk8KjJ0 UgXHBhcn0= SPECIMEN SOURCE (test e2mpeHJqNKSglUO7HtEoNE code = 3377) Fri6llv9VykXJaqQAeOGud vSDorsHegr96kBM0zC52BD 8lSUPoTeS9XLMpztF3Qgc2 UNSgSFNgrXExH293e5xsz4 xbigVqyAZ9vBumAYVzBSJm VKnzJEHnZxWzKC8eR49dqR C5xOXbgKNxJSDhMpLhFBLz VA00JoZYHvTPd73sKWhpSR J9 GROSS DESCRIPTION (test s9exeQOmQAChgXJ3AkPlRP code = 3366) Jrh6sqc5GjnQCavZCyCWem wUOnydElhr39uFK8cD96WT 8eDEGnCuS2FWOwhfG2Hyn7 QWWoXTLmbCOyT569a2khu0 tsszBpvVM7fNnqCZQjWSZn WSubANHlQxApXG1nLFusDM CtENDflSMvCEdgDWJjJ5Ql jeYvJNbxJUZrU50jyOQzwj DlEKsydAlpCi0ojBWriR1c wEKfWVjvVSJ3hJRuWXT5zh EqIMMlBK09WQbvWL80aEJb UBEjBRBkZAOyr21dsYX3cX AqgIMoGBOtYlWoZBWiJR73 Vx0sQDUtA09gm2qgxOKlz5 VhJTDpXMruPQ67VRspZX1y CFKoDHKgREocHC93EF4mOQ Wcsg03qCj4KHT0mSWuuBRf g7esR1frnVSzGd3aSDrbqZ HgcLLaHpQThSUvaGX7EQWu aJ7iGAWiUGH2PXUaaRdueD FxCNGjRVfwzNRhQ7I2oJ1k YmGwKIHcbfdmTCVlKk9tXT hlIHNwZWNpbWVuIGlzIHJl C2MohfFtAGiiABRkL37poX KrufSjGCukxTxmEw5fbYMd vO1qeLBdCSxvHLA3uXDeHB E8rkRwSWLuGY82RBirKX73 eZClVQMpIXKpYYNkXf2bSI SbJBc5FSLwueQtj4EiBC8b GMLvOF59QXupJHI1ZZKwE2 6wZhIuA40hrhGvp2LsSj7o ICP7pMKoCZNxtWcoaWtzma VoWVY5cVmpR8NvLDYdk6Ka NNJaG9Hgn92nCRKrlcAtk0 KlkYr7xQXwQQukBBJiTDSe uXOgUITvF3HoF9vmjTMqoC lgda9tYMFqT4CxPQIbqf7= MICROSCOPIC DESCRIPTION s7przDRxQRLiiZA6OsWzAI (test code = 3371) Ueq8rff5UrnHGzmAYgSBmq yIYmjqQldu48yMQ1lD23KU 1sUUKdDbQ7NOYbaoZ0Hns5 LZOuLXDupHLdO638i4ojo2 lmioLbtJV2qJwwSENfTFAk XIdnMZFhAkTjMG4FLxLCTH Wkm7LiMBCwNDaoGWB9 Gross assessment was [facility] performed at (test code [facility], Department = 2777) of Pathology, [address] [place] [address], [place] [address], Technical component was [facility] performed at (test code [facility], = 4257) Department of Pathology, [address] [place] [id number], Professional component [facility] was performed at ([facility], Department code = 2779) of Pathology, [address] [place] [address], [place] [address], [facility] [id number] 09:25:00 Test Item Value Reference Range Interpretation Comments Case Report (test code Surgical Pathology = 104) Report Case: [id number] Authorizing Provider: Laura Nguyen MD Collected: 09/26/2020 07:56 AM Ordering Location: [address] Med/Surg Received: 09/26/2020 08:55 AM Pathologist: Hilda Mack MD Specimens: A) - Soft Tissue, Debridement, LEFT FOOT BONE CLEAN MARGIN. B) - Bone, LEFT FOOT 5TH METATARSAL HEAD. DIAGNOSIS (test code = [id number] 3220) FuZzEwMzNcZnRuYmpcdWMx IHtccnRmMVxlcGljOTIwMl mkisHgWMCwtRQyL1Yyisxq EJmrZM2xMA4xwLfxoNOauG OoGTLgAwHba4taq828qLCf z4fpQSDEaeaviSh5lMmjD7 0pl4G1IanbX59hbRIpPNil bGFpblxmczIwIEEuIEJPTk OaZAzBToRoJr0XTVKCBUCW HoBGSGTTON3pFDIPP1NRKH kecKVpJWDoFB9sDy7JOPGF QnFfYrpGZo3BK48VRANRPX QYDOZMA6OLWJhxWkNQNCPM LwDfTz7RSEFZEALKVL8JHO VPTVlFTElUSVNccGFyXHBh iwQSWzGGK78OOQOICCFAOC RAM4EbQUCXAT7ZXOLBLCNX CXsfMVPGZEysNG3YRMRREZ gVHivnpMYpIEItAO4fLUNV MKSmDX7MQPWUGy8DNBDhA6 XVJA2DQSTLSINEKhMkuEAr xJrbddJzZPhsk8FgADscCL OnPY2gjNmaIXIgEH3zNZPr E5asvM5tcmx2CnTuTIGeKx H4XATdlbZ1Cke5CKNsLCeg y9osm1QdVKOkXCj3sKkpHg WqCFTth3ukgrHnZeSlEQZn DTTlPNLbaJHlW612v3xsh4 iledSyoFQ5ONDiKUZ1CUey pnOhxjH2SWewzLIuDfL3GN tccmVkMFxncmVlbjBcYmx1 ROJaC296SPL5sZkxm4abLK I3YCOlNCQdXzDlYh4ndFQr R353JWYmOTEVDPOiiAq4CK HrtnUrcmZeqEQJr191Y443 o8saZKWuzlMmjHaJjonxq9 gsP118ISIsgJXjgcChKhBk TYZxkDThnNK6NYYmCG6tkb yuOWomGNmbHXEnopV2IFHl xFXlE5YxIODmOE3zhlojFA J4UEcnMAApVZW1LnRmEZXu g1Bsgut3JxXpwq1dad68ZO K9i0IytWogLJH5VTU6WaWg An9jmRBiFUFpHO4jQwCpsG YtOEWloj40qZhuCFyiONE8 DWGaxmHgh9Zoy1xhRyAprk BkL9ohG5IbBQXtFRXpUSMx JkTgicVlh8Lms8EkgWLkiY l1t1seXSKoXOQgnPtdh1tg JCX1BLWgfTWaP1ufwP4nWL LhMY4gtgwmh8fyPKnzXQng ZTZooHG2dxN1CMGrqUAfU5 FypY4aSBHwAPxpJPQkrif9 FdGyGr2oiJWnaVfiDAicUu twYWdlXHBnbmNvbnRccGdu ZGVjXHBsYWluXHBsYWluXG YwXGZzMjRccWxcbGFuZzEw MzNcaGljaFxmMVxkYmNoXG YiRJbvD9zcVsFxRwMnKqa4 SIOhaBOcDTUeMko7LQAhcA AgKTJUiXcaxQ8rHVHlbZfi dK6goJB7PYBhgnXudJQEdK 7gBFISeY9xLxPwLKXaMiU2 LTcxNjNccGFyfX0= CPT Code(s) (test code h1namPSiTTBntSS2IaNqWQ = 3357) Wgc9hag1CrwPTnrHDbPWhg mVCxhdFqsr93oPM7lS94JW 8rREFrToG6QSKqcnB9Nvl7 IBBjXJJzxQVmS456m9ehf4 vfsfZekZD9rGznEGZvRZDp YWluXGZzMjAgODgzMDUgWD MjOBu3RaKvJDikNKYzkj0= CLINICAL HISTORY (test m4jgdEUiLADjeTW8RuMrLZ code = 3356) Hab2qoo8AxpWWtgTEdGCmv lHYbleSesp08xQU9bT26ND 0jLIGbCuB4BCNnigD3Wmw6 PSQwNYJxqVUyH180k7ekz4 prjjOpzQM2xRlwSSZpAHTe SPqcIELwXlOuAUfuKwS5nY SmySvqEBSys9MbkVKffUOa o585QJIhi67fmIJ1UGIkj2 q0zBTnoYYfGQAtuyPrOAot oKJ7duBwdNPrjP3mbS6dZC UbzEhyQdUir68jgNDkn36y SWDqt3IcX1uguQOhKLUzok Qay6OfFs3emNsqeJ2hbPVf zHXfBJUrtYhsOLIiq5MgX5 UgXHBhcn0= SPECIMEN SOURCE (test k4ohbJQrRRKeuFK1ZcAnRE code = 3377) Ads5jml0JlcAQftPEpMIkr jVPuqsFayz86dTO2gT17WB 0qZKSmDkE5WIAcnzK9Fwc1 AOGmIJYiqPImJ959w2axa1 rlqgDkdWU1dRvoVUSeYUIs RAwsRIJsIwNaJZ2qL16zkI X4yHAgcNJiSUUuYbZaJYQn TQ11QmRCVxVGw29cQJcyLT J9 GROSS DESCRIPTION (test l1yqhVDmTKVcpXV3WtAlWH code = 3366) Ywx8jvy4SvcUQydHQgIEhm hZBobgJgxy49uJM2eV18AY 3kNIEbCqJ0RUAwqrT6Bpy9 IROdTTWhtUTtN383w7bvw6 nxbtJjrGC8gGptDKOuKLMo KVsrVCInIoAySO2rMYvyEK MbBUXgfNVkRJkqQWQhQ0Jb rjUbIYkbYAOtW95hrHDqze OdHAictEwwJg9lcSRmjS1d gLPjCSpxHDS0zAScFZQ7eu AoLLTiXQ07BTahFL75nLJa ITLoVZBcSTQxo75uiMT4uG DxdOWuKFFfVkQwCPIzQF17 Qj0hORIsO61my0nmkQPsi2 AjOMBcYEqtVN61AEpgLX1y NHJcEYXcBVtkYZ97OG5pGT Dkau42oWz1SZM1kVSuhCNy v7ahA2klnIVfQi0qEWlvsO YiyAVmGpVFcOCoiWI5HIPz gM7sEARfDIM8GNIhaLxfbE HeKROoQTevrUOyV7E3mT8q ZrUvYAYklmhxOJZfGq8sVU hlIHNwZWNpbWVuIGlzIHJl A8DwboDkYKpqRMAiR33ddM VooiGhDJgjoMnxWe8npHXl vD4hdJLbBCvnQRT0dVAgTX B2dkFvXIVeRB08SPzjDF82 hJUsUGXaRKUwJXXyYe2oRK HkPQb2YLDbzgKra6LnIU8j HUMrOS42PNhjIPH2LJLuP7 2pZyXvN80waxDjc9IfYs3j ELT2dMUeZQZvkGwcsBmwzp NeWGP3kWanL4GsUCDdn9Ib MFAsS2Mks79bFFKgjyVqa3 EjkEb9zQHlHNnyKGNpJLGo tEIyAZPqS9UxY0cyjQFzeA vtny0yUVTwB8ZfQPEqvu1= MICROSCOPIC DESCRIPTION z4jbgYSxNCRboIZ0EoJhFK (test code = 3371) Jlh7hys0EzqLEnhACmQByj eAFjcmJbqf82jGX9qK15BT 8cHXRlHzZ9OILnbqM9Uco5 XLAxTUSrnNZvK467v4vxp6 fkjlKtyGC1eVedDIJvCCMc DNtoOFPkMxYrJK3JXrPIGH Ukj5NbIXMeCQuxGWM5 Gross assessment was [facility] performed at (test [facility], Department = 2777) of Pathology, [address] [place] [address], Technical component was [facility] performed at ([facility] [facility], = 2778) Department of Pathology, [address] [place] [address], Professional component . [facility] was performed at ([facility], Department code = 2779) of Pathology, [address] [place] [address], [facility] [id number] 09:25:00 Test Item Value Reference Range Interpretation Comments Case Report (test code Surgical Pathology = 104) Report Case: [id number] Authorizing Provider: Laura Nguyen MD Collected: 09/26/2020 07:56 AM Ordering Location: [facility] 04B Med/Surg Received: 09/26/2020 08:55 AM Pathologist: Hilda Mack MD Specimens: A) - Soft Tissue, Debridement, LEFT FOOT BONE CLEAN MARGIN. B) - Bone, LEFT FOOT 5TH METATARSAL HEAD. DIAGNOSIS (test code = [id number] 3220) FuZzEwMzNcZnRuYmpcdWMx IHtccnRmMVxlcGljOTIwMl hadfUlJFLpgVTqN2Syndnm DBpbBQ2tMP5ktSmayYFcgC ReISLdWuFby4vju190oUWp w3zlBWRLpygziZr1xUfwE6 8cx2A5WrogD97ecZAtQKxw bGFpblxmczIwIEEuIEJPTk QoYMsZXtNfCc1BQVQEBNLJ DuUHPELYUK8yXCFSL3DNZW usbBTkSOKcNQ8eEf6YDBOR NyZeNvsPAv6SQ59EJKGVLF GPFJXVW9YBRUxcAgHQDGKL WlMcWc2MBBVINMPMAN9RIW VPTVlFTElUSVNccGFyXHBh atBDJaJCU53DVGVVMXOMQX ZYA6XqOEEYDI8EFFBTMVLG JMskBRVAOOwvAR4FCZGIFS wLMvgynJVbOWDrLE5sTRVM XRJjZQ6FDNCCFr1IAUHlP3 RMSG8WGGQQNVOUJtQqhIAv eHvyzvOpXZshp8TrRZezMQ UjJJ4ckBqwHDFcVM2dQBLc U5nalL8gcpt8XnPdKLOqZq O2DAZrcjJ8Vla7CHJpZTbg z0tjt5VyFQXeUQt8eBqxAh GdYHCri4sgrqQtSmIoUPKw ZRWnXXBoeEPcM389q7amb3 pxpbFrsTP1YFYcROX0OHzt ckUvrrI5ESpatTUwJoX9LV tccmVkMFxncmVlbjBcYmx1 ZYAsY826ATW7rVtvr9vpJJ P0KRQnBYEtWiYxGu7gzBHr N759ERHwKWBWBJMnsBy0TO EjnkJuhvTpaJLVg999P485 v4deYTCottMfnSjXugjce5 fpW314JXQhgAWlymOqRtDb KBPgfNWupUJ0KYUhVK8cmg whFWfzVYcqWALmjcK9VKMu wBYcP3DhHKGzUJ6wvmuoOM Z4ZVbuAWIkYDF6FhFuYKDk s9Prejs0VwEonz0akt24QX D5k8FuxKqlTWB8WUN7TeIb Np1nyQZmONZdFR9cIkUfuR CrWEMpdr20vFadYKpmBSU3 EGEnviAgq4Fwt3pcOqSmlj BfW4txE7NqTPUiUCZcGEZe HqKsfvShd2Spt3ErrCDdyE w6y6xrRFVaOBWlzXudf6kb JYU8CBAkiPJiR6negO2nAY UvYI2basuln2veXKdvVAaj MTRtzCD6amO3TAVuxKPrF1 WscN0gWSPbRPebQSNqggg0 MqHqYu1beJTcySrcBWkiWr twYWdlXHBnbmNvbnRccGdu ZGVjXHBsYWluXHBsYWluXG YwXGZzMjRccWxcbGFuZzEw MzNcaGljaFxmMVxkYmNoXG PjWEibC6gwYkTuKnEcWxf6 EPEbyCBqZMOuGzk6ICCepO DnGMRPsDogsI1fHDGshGhh cQ6mxZT6JTQsrvEfiHRZwI 5xMBNQeG0bWiWjQSHlHaA4 LTcxNjNccGFyfX0= CPT Code(s) (test code t6faqPWoBODhjER4JwQmLA = 3357) Kzl8nxq2SdkKYxfVCiBBnd zCBjlgOaza98uCX4hG73SC 1lYQUnHsO7CPFftoU2Mgw0 UZTxVDCmhDVvC577n2jlr7 uybkSjgDB0bQnpLNXvQFJu YWluXGZzMjAgODgzMDUgWD ChQHl7UfWlNVojVOYjms0= CLINICAL HISTORY (test w0ddfQMgIKGyvOJ1FeNyFZ code = 3356) Wxf9ssi1RmjBZpjRCsNEdd hHRfsaYnbz63rTK0lO13BL 9sKMHuQeA2KURrafC3Ytr5 WVBmWPDjtWLbC776i7zrx1 lghyBwqXP7qMvsJBSiKRTy MLlwLRFzFdNmIEoaDpK6jB WsyYmwSEGfl6LfnPCvuOCc m701ZMYxn98jmZU3ZCQwc9 u1rISfbVKpQYRgcjMpFYrt bTR6kcAfjOIvtU3xzA7pID UguSohQlHrb74vhHKpc61l OKHka0AoK4htxFLtGERbuv Tws9LdXv4bmZyzdD3vbQUz kYJxDAKpdHgxUQFsk0DsB9 UgXHBhcn0= SPECIMEN SOURCE (test x0kciRIbULTguXQ9KlRaEM code = 3377) Xjc7gcl7WoxVSekESnIPhd zGTqebZnfj80jZE3zR91BI 3kCTMuVtN4MZVznvS4Ioh7 QKQmSMOxhETjA788g7nlp9 fcwdVguDI4nRzsOLRvNNEu UHfuZGLsSoNyLA6dH92jbW U9jWBztXRoPQPdHzJwTNGt TW06XdQXSiWFj90gKIdzBS J9 GROSS DESCRIPTION (test f4mcsDOiYDTgwCR4SrToWI code = 3366) Vmm0xpa3HzjUGznZXwBWsc qMIdowKwbc59uIK1wY27GT 5tBWFaTgK0PVIwvnW6Zxz2 XKLqSIUwpDZiB402y4cbf3 pvmwFbeDJ4sVhuALWjFRCb NGmhVXJqDoAgIW8eRThsNE NlCJZonGIfIBxkIZBsB3Ye yeFiQCiiXNYpH95wvSOcyo JdBPotjTadSy7uqKAyiY1u mILyAGfuIJO4bZJqPOP3ys GnQPRqUN90MQlgEM32mJOc USReGUAvMRZkv71ovUX0nJ QnaWUaOBKnCmPgYOGeAA17 Xd2tYLOeX03xt8khbOZtb0 UjHTCkJNklLK48ENmtFO9q MGNjLUAcCLxiOE76IL8xZL Tkht76pPd6UAE5sZZyrYTb q2sfO3zcsTBgUz0wVFipaH QxaSUaEtQNxGKwiVN7VAJs fO7pXUNiHVI9ICHfoJrqaZ DfWGHpKIewsQTpS2H7sT4c GtCwZLYaeziaHGRdJp3gTN hlIHNwZWNpbWVuIGlzIHJl I3KlxgMzXDddGTAeC04euD WycpCmJQltyCcaHv6ucDEl pF7lkEUaTImlPDC1lXXhTF Z1kdRoSKYfKR00EEonEN48 nVCwFPCsHHStRTZxSm8hQA IxRPs0ARQdgiAnm9YhFT9o VRDjPY56KDrbFAM4YNDaI5 7pXhCeU49qxrRqe2GeLv6d UKG6zJCmQZIxwFpwePepsb PmRKM6gGbhC9SbJYAco3Em USVqL0Bss37fVGMbvlRdk6 BbgMz1rPRrBHpaADUdOUNm bOOaTLPaW4ZuQ3kfvUHcnD zryc0wHVNkH0VaAHMbrc7= MICROSCOPIC DESCRIPTION n2lauGNqZROvvHT6ZxDeBF (test code = 3371) Wxm6gae8CgrAHynWCdSMre uWKjscCrvl03yEA5rY63DY 4fZKLqWrA4SUHijvX5Jqx2 XIEjWLPqoNBwM799c1iid9 trskTwoQM8rHnqBQUjGVQq OAzvQXDuTrFzUR2DZkWRTF Tyq7YlEGNpZKvzZBQ8 Gross assessment was [facility] performed at (test code [facility], Department = 2777) of Pathology, [address] [place] [address], Technical component was [facility] performed at ([facility], = 2778) Department of Pathology, [address] [place] [address], Professional component [facility] was performed at ([facility], Department code = 2779) of Pathology, [address] [place] [address], [facility] [id number] 09:25:00 Test Item Value Reference Range Interpretation Comments Case Report (test code Surgical Pathology = 104) Report Case: [id number] Authorizing Provider: Laura Nguyen MD Collected: 09/26/2020 07:56 AM Ordering Location: [address] Med/Surg Received: 09/26/2020 08:55 AM Pathologist: Hilda Mack MD Specimens: A) - Soft Tissue, Debridement, LEFT FOOT BONE CLEAN MARGIN. B) - Bone, LEFT FOOT 5TH METATARSAL HEAD. DIAGNOSIS (test code = [id number] 3220) FuZzEwMzNcZnRuYmpcdWMx IHtccnRmMVxlcGljOTIwMl vpdsVpJQJqlZEdD1Apgsoy OBfdBE0oNQ6zeYmovEDwfF ZoDZUyJmIkt3rmq902mMGt z9sqLSNEwudhcTx4gItjH1 0js5F8PmkhH53hmRKhWHyi bGFpblxmczIwIEEuIEJPTk XoFSaMDeLmBw7VJQORVICX OjJQFPGJRI5fETQTN8LQHE pbiNTiIANqCK3nPv6JEGTV XqOsYjgNJz2OV61FLTDSFL DFFTAXX8TXULizGgCPKZFP FsMhTx3OKRKEZCIUBR2XZS VPTVlFTElUSVNccGFyXHBh ckPCOkEAJ84XSHCUYEXXSA YUY1LtMTIWVY5SMTWJRFHJ PZljBEDHKWtmZB7PSPPNGX sQDaafzHVaZOJdRU4bCMAL XZQhRG0SLDOQTp5YLEWkW1 BPFY8HPJSEHQAJZiEcoIIe vFylzfCwQLdgr1JvUDxeEV TnHA4nvYqbOOTtAD5sAVXd P4kkgV1ksrj8IdYgYFEyRi Z3FKFmxaG2Zrf0QVOvKSug b9gnd9KsIGKfREk3pFwiXe CtYVEiw0gwbgBqWjZrNXNg KPLsNVNtfSVuD347x1wks4 snipYyrBC4FZSzMQS1TVnx biFteiZ6PCxykVYvOtD3UC tccmVkMFxncmVlbjBcYmx1 ONYdF368TWC0wHyzd2hwXP H1NYYyQFUzPaKbCf9ywGBm V122WNZzQCLJVQLjhVe9QS XbmzAjtcUvwRLGo141B730 u8hkQCAempQxfXeLpoafq2 pjV502ZVChtKOeleKwTuIf VINqaVHriRR4OZYuDN9yfk qyBDiuMBdpPSBadkP9ODRw rQUxV7ZyLDAdUY4wbbctDD K1YNyvEZWgYAF1YxFnGWLy g9Jqstn3UzTccg4hvv06UK C0c2ZjaRdxUDD2MXD5NnVe Tl7wvAArEZPrHF2lAqAweE JjXYOqeb46mOpgFYveBPS5 BFQadlTiv7Sxg6cdKzCihc LiI7saY7VjUQIwOQRvASBj AoXgqyCqf9Upl7VwsZRmbP q1c7kbDGXhYYHwnNrni3dd NFP4SMWvbODiA9hfdK2zUB ZhGB3xfuldl7nvJSmeXLqf YGQbfHF1jeN6RVYxuLGjJ7 DcqV2nXORyDZkiUYQhhok0 OkNbUk4kbUBhlBxgRUtkOu twYWdlXHBnbmNvbnRccGdu ZGVjXHBsYWluXHBsYWluXG YwXGZzMjRccWxcbGFuZzEw MzNcaGljaFxmMVxkYmNoXG BpPZfuW1yiOzCwUyRuRro8 BDNgbLSaZFDvIlm9KVClgR YpCRUCoAuomL1qOQBhcRgz hC3xrHW3THHjdfVqlMSUkZ 5dPVPYwY9nVeMeYNOzStZ2 LTcxNjNccGFyfX0= CPT Code(s) (test code y9godUFnMNIpmHA8RyYpSO = 3357) Fvo4bsz9HicPCloPMwKTkr vDVlvpHklm55gWC1vB71ED 6oIIDjIjG9HCOjloR6Uty9 XHUaMAMaqOUeG206a4fks1 uvrhHxrNP1mCyoLWBbMUCo YWluXGZzMjAgODgzMDUgWD FvCYy7AsZaFOfhFISdph2= CLINICAL HISTORY (test y0vzwJPgJPUfqED4UaDzLE code = 3356) Uvk4fak7XmeEUvaWAaWIdm bUIcmwMage47vYN3vX18WE 3zMQCxFeK9NQQjblZ2Iam2 LKGcFVCnwJQcF591w5ybr6 anqzPptBQ8uJujWQWsZMJu FMyqHXTzDcQgUThdFkY2wU MseDevLYYal9JmwMXumXBa a772FFQbb81qjXU8YQPie8 a0rLPqkPCoVKSvypTnFFsd xOI2xjPloSYinA3byE2dOW FnbMnaXzDco74pyMRog66u WRGcy9BuK7wncBRgQLQhag Owb0LvRe5nxIexcG5jjWWp mBYeRIGugKqoIACwo6UiC4 UgXHBhcn0= SPECIMEN SOURCE (test w9lwjHLsVXMoyTS0DlWwRZ code = 3377) Xsy3wwd3TykGDoqCVbYKve iTZjfsPfio52dAJ5bD58PY 9gKRPdIwH6YMTzjvP8Vrz1 XNGfNHDipAUaK122y2itr6 hxnbSmyWE0bDmaFIFmUSFa NSfkHNKxLzNxYU5yV55riP Z7rMXvfTMvPHMfWzAmUNJn KJ20NiXURlTYb03mGTzqMY J9 GROSS DESCRIPTION (test g0iaoBPsDGPqrMW1MgClZR code = 3366) Bgd4gcg7YcfVVaoKCgGIvj kVQemrHtru32sYD7yV67BX 9pTAKbOxG4DPPhszU3Ozb6 SKEpJIUypQChF578o9muf6 usmeUfrCJ8xMukJMBtFAJb AIyiEMUqEpVcQO4xIWjzFY XxHMQflJLeFHpyWKHpW8Yb qeIqEQlpBRLdK36xtJOwoj ItUBatrOepAh8hvYMnsZ7i zAHzPAzwKMY5iQKwHRW4kr JrNSBlCQ31NIyfRZ61cSJi CLNrDFFsLUZdg05xwZN2pN DhgAHpKNQeLmHzWJLaLB51 Pq0wJHGnN44uw9fmkIHhe9 KpVBLqKVlfLM81BKaqKW2t EQSxSFFgAEpfIU16IZ6iMD Kasb53dBq8CUV3bIMosLFo i6enZ0dciHAyGj7oIUqywH MgjVHkKeYKnKFcjIA0GVEo vH8zSFQoFOH1ZMNjtAyojH OoTPAgFIbriEWuD4W7eB6d BjEnHQPdstvgKYCtGu7mFK hlIHNwZWNpbWVuIGlzIHJl V3FfmfEaRYeaLOStQ38gvD XtymFfMXxosCskKz8yoDYn zL4etULaNWcpZZY3vUCxZD M1vcLkQJMbRT51OMplUT82 jTStVTQaADHtEWQeKj2qWE RjOEx4ESIpjcUqg5AbBN5o YIChKK84JCycNNP9NVYfH3 3qJlTqQ30ziaDtl6NiEd0l UTL0gMEkGYSatNmsjArblk SlGGX2oDjvP2SnTVNmc3Bx NPCzB2Enr56mVJTiqvTjz5 LieEv2rUDsNJrnNLPnRZKe jHYyWOQwR9QhQ8gqbUZtfW qbyf6uZPYhS6ThAOCarp7= MICROSCOPIC DESCRIPTION h1jvlKZzMRKnsQD6OrJnHJ (test code = 3371) Ewn9jue1XbwZUcfOBsNJqy zTYcpwGatf70oUE4bE79IF 9yBXObMuR3TTYnkuS5Asu4 DSPhIGBrsBKyC316k5vpp3 ioqsNyyCN8dEylQZLaINSw UCquHNDoApMrBM5UWpQBLM Npz6BjDPJdQVfdMLX7 Gross assessment was [facility] performed at (test code Hospital, Department = 2770) of Pathology, [address] [place] [address], [place] [address], Technical component was [facility] performed at (test code Medical Center, = 2778) Department of Pathology, [address] [place] [address], Professional component [facility] was performed at ([facility], Department code = 2779) of Pathology, [address] [place] [address], [facility] [id number] 09:25:00 Test Item Value Reference Range Interpretation Comments Case Report (test code Surgical Pathology = 104) Report Case: [id number] Authorizing Provider: Laura Nguyen MD Collected: 09/26/2020 07:56 AM Ordering Location: [address] Med/Surg Received: 09/26/2020 08:55 AM Pathologist: Hilda Mack MD Specimens: A) - Soft Tissue, Debridement, LEFT FOOT BONE CLEAN MARGIN. B) - Bone, LEFT FOOT 5TH METATARSAL HEAD. DIAGNOSIS (test code = [id number] 3220) FuZzEwMzNcZnRuYmpcdWMx IHtccnRmMVxlcGljOTIwMl gjjrQaQGYoaCPeF8Ktgvqv RBeiHD0xPT4hqKlxkGSkpO AiLILbScFtk7nll177qUXk v3zaXJXFzgexlCu9aMjcU8 0xe5H1ZvalK66rdANeLVvc bGFpblxmczIwIEEuIEJPTk YlCSvUKtGtAt4FFHOPFJRG MpXJPABNEW9bDKVYX6WJST zbuJUyKBJiSY9mKg4ZFCTA CyAuNppGGz1PX26HFLBIFY ODYDFUP4IUZPrmXjDBOZXL HdIbRq0IQKUUFUUJZD8NMZ VPTVlFTElUSVNccGFyXHBh nmUYCtXEH15HVLTOMLREVF YEV6XvPPBOYA3ZRRSMEVQL JKwfGQNZKRmuZB3IIXJYSU aHJgyswDJdBPFtBC3hFORJ CMTyVC4VSYDBLi4QMPGkF2 RVKT3PDMVSGGNMClRnbWMn jWwuiuZkTKxdj4JqTLitMP OzDL1ofVayOBVbDR5hKMBl R9pgmY6impr6FlFjGYRkXb A2QBHflsQ4Gwm3BNAiAXrk e9qeu5OpBSByJKx5fUucKa IqYMGoj9fxczXcAoBzBNTb OZUlZHKcnUHrR941m8dlk7 mgctOxsHN9YPOpYDJ8AWlo mmLbpsZ8ZRpdvKElMfZ6WA tccmVkMFxncmVlbjBcYmx1 PZWjH269JUJ4kAhll6dwYY B2AGIyQCYdHvZiPj4goWQn F685JZFqVKPVRACwcAj6YN SbfyQtleAqvRFHo534Q395 u6yoNSYxvhZwzWbCuhxzh8 uvE838HMApzSXrzeJnErDy PUYffJQsnVI7SPHjSA2lqh qxJHtdEArqRCPlqyE6KTHx rELqR5WdVQOwGD2lsrywLC M9CYcqQOLhNIJ3JpWnTCPt f4Pbicm0SmPmjv8oxd20RE Z3i7FwaKypWOW8LXK2OxEe Zs9qiRLfVQWlYD7pMhLiiC ZjYYKplw34cFduEBwoLTE1 ROMkkfRhk2Dil6hsWdEiwo GfE7uoE1XnPVAwZMAiLXKa MxJwirByz6Txc9EgaIZnkO h6e3ywGAAzNQDjdEpdp5hn MVK6DRIbhPQsQ7lheT9tGL XkXU9vlatde4wyJXnoXBpe WLUoiBO5hdX6AEFwzOWbB4 YijB6vQCRzVGfaNPGqzgg8 LrOyFd5wdVCbiOewJKvpAh twYWdlXHBnbmNvbnRccGdu ZGVjXHBsYWluXHBsYWluXG YwXGZzMjRccWxcbGFuZzEw MzNcaGljaFxmMVxkYmNoXG AiSBteP3ofXnYpVkDpApd1 LKNfxGGiTKKdGnf2SVZmjD AiXMBUwUdzgY2aHHMehUrz tI6ovHA4MCXisnAjpAWRwD 2wEJQCsH6bXiMcDLCbXoO2 LTcxNjNccGFyfX0= CPT Code(s) (test code x0syfDGwSEYoaBL8FzJsBA = 3357) Sym1sgs5KwqUZgtEVyWHst dUIckiGhfm30pNR8lE53FS 9gHHQeZkV9TFMjsaY6Wdt9 TXJdCWIffLAqV786b6qci6 nndeXuvOU1wEquZFNnNMPj YWluXGZzMjAgODgzMDUgWD WnRIl6BxMvNPimBGYwjo4= CLINICAL HISTORY (test e4ncxIMnEVWquDW7UoJqMO code = 3356) Cvq7wyi8FskGRfmMLiJAhg kRPfiiUxdm64cPB9dW45MO 4sLBDtYxD8WBImcyF9Ceq6 PHQoLJKzeYAhW750g5cqq7 wwnbUmsDT6rDjpAPWtJMVu OVttAQVxRqByZDfkJuT1cE AzmPlnCONsc5MniBYzbXRz y205BHTbb34hcZY5GQNdr9 j7aKMzdMSyAQYcwnGrCBje mIG6ccViaGNabR8okQ2fTZ EeeTidSgEiq31jaZOlm83k LRGkd3MkV5ifrMDzAIVkzv Wgt3SuXq9gjKuabG4siYUq tEWgISVwlTviRGQqt5PqV1 UgXHBhcn0= SPECIMEN SOURCE (test a5oatPOiEZVqwEE6DqPrKF code = 3377) Gaj5czd6EegNBqsMAxAEnb vMRioeMlda49dBP4zZ88NK 8mTPXwWuZ4AEOhqmR5Ftk5 FFImROSvvTFeH823q4knq2 ijrcAufRK4fMdcMSMxJSNm TDydXYLbFiAiZY5hW97kwK F4gTFtbLBaBSYhKtNiSDOy XT27XsRJRtDXr90aCZzqJQ J9 GROSS DESCRIPTION (test t0kwlREqNFHksVW1IxIpWR code = 3366) Ctn0gcy3RhqGFdgIPdFNsa pVYtpgLuhi37dSC0qV46FE 0yOVLkKtW9OCZnwrS2Ntu4 WSJuKBAcgPAsK380q5gkq9 spmqOvyVK2nGmhRUHsFOMz GBmcBNFtLzXyNL8aDUlsKZ PpUBObsXAuYQjgITVaF3Az baHqBNzrNKDiK66boNKpkh IpXPjnwRdvSw7hxOBgoE2s aCRtRCfjECH8dUZiGTB9ms SrUFQkZG48EZgdGY56fXIm GCUkVLRgRPOma84qtQQ6tK CayIVlQOIoXtGyMGOaFL57 Lb9eOJTwB51dg8vihERhr5 SzAMQqXKnnSA76YXbkYD3j HVIvUEZxEZlyEP37VS6kUT Iqch13zLc1DUC7oRVxvLUl i0kcG9hkpFDmYl8uQAsinI RxyLNsOqMQuXCedOM5WEJs oZ8nJIWxVGE4IHQbbPzqcP ObYCJmNVbbjJNjZ2A6oO0d VuAdKDQzofpzNMGgOj2gRR hlIHNwZWNpbWVuIGlzIHJl S7EffsTeMJbiYWQzQ57dtL XzmeIdAGhzyEisDs9jeLYr dM7bzMWjSChyIBD1aJQjPE Q3bgGsFPJbTR69AFwrDR81 cSSnVGZpEFQoPMAqLv8ePG HsTFb4QEAforTon1UoJK2r AFEdUK66IMzsFCS1LTQwL2 2dDgBqX83jdnVfj7OnYz8y WWT1vUEbIDGucMvfhPldvd YlXTA2pShoB2IxSGVkc8Wd HLPyC1Ynd07dWKJtaqIqf4 YkoDo6bPKtETllLOErBHJr kCEdXQExN6CnW7dprBLavP cbtb8jXFPxO0YtZKGulc0= MICROSCOPIC DESCRIPTION q3btvOHyWKFfeFE1IiKjLC (test code = 3371) Gvi1bmh2FnhMPztZIwLEbc eMEvktCmoh29fSK5lR48FH 2dLBHsJiJ0HUSbefV9Jxg6 YQNiUYRzrQPlP853b8nhd5 zdbdNrjSF4eLzoGCWwUUSj EXerFHChEkXfHM9JGzIENQ Lty0IwPKZbTZuvBDP5 Gross assessment was [facility] performed at (test code Hospital, Department = 2777) of Pathology, [address] [place] [address], Technical component was [facility] performed at (test [facility], = 2778) Department of Pathology, [address] [place] [address], Professional component . [facility] was performed at ([facility], Department code = 2779) of Pathology, [address] [place] [address], [facility] [id number] 09:25:00 Test Item Value Reference Range Interpretation Comments Case Report (test code Surgical Pathology = 104) Report Case: [id number] Authorizing Provider: Laura Nguyen MD Collected: 09/26/2020 07:56 AM Ordering Location: [address] Med/Surg Received: 09/26/2020 08:55 AM Pathologist: Hlida Mack MD Specimens: A) - Soft Tissue, Debridement, LEFT FOOT BONE CLEAN MARGIN. B) - Bone, LEFT FOOT 5TH METATARSAL HEAD. DIAGNOSIS (test code = [id number] 3220) FuZzEwMzNcZnRuYmpcdWMx IHtccnRmMVxlcGljOTIwMl imjzUhSXNcuUMiU6Xshutn UCmdAC9pWN5bcPqjqBGfmU RaRJSvHlIxs3sxp890mYJx h4meCWIOlrierGx2zOoyO8 7eg8I4LanpB53kqOXwQVoh bGFpblxmczIwIEEuIEJPTk XzHYcNOmXaLc5GWJPBGAME DpNRSXUQYM3pROWDC5QSRK zneAMlEDKgDS1vBi2FAYPH IfMaEhfFKg4DB10VVKSHEH RTYUROC5FEELgkGvDCAOJN UnRzTr4XIXLGCSTHWO3UWV VPTVlFTElUSVNccGFyXHBh usYMSsGIJ08HLIIYJWAGDH MCF7FpJYBHSH9MITKYUUJV WLnkWYVFQNjhCT4ELXLFKA kPFqptyLMsMDHaXU6fGFJQ KAXmGZ0GWWXXOs3VFHIiX4 ZKWM4QBCVUVQUPSjQabNZy dCrkuyIsGFrqp9OgWAjbZP YbFU1cbGtySVOaOL2eJCUt F2jvmM1slfl5KoYjRBFnKg T4EVQkxhR3Vjj7DJLyMJrf d3lur5EqBDJuUVx1xMgoWy QxXBVtc7fyqyYxNcUeZZUv PVEsTPAkyMSuG163q6xll9 zbygZxrSF9JXSwTLU8QCpe utXekuO8ZPowdPRjGsY4KK tccmVkMFxncmVlbjBcYmx1 ZPZkO925UKY7qDthu1ojLO I3WCNiQTIlOnJxGd6bvBUm A941QBXyHHEKVPMbvSj7SH MdcySodlDpjWUEv414F236 p6cgJOEqsyQanMzKoiquh2 mcE682NLYcqQQeopElKySu HTDvoHWqtDJ6WLDxJQ9ayy lnKJjgNOmvBVIsyiS7WUKg jAWcG8LqKBUrMZ7dqfgqND Y4RHouMQGjMEH4TnYiTCRq v8Bwkpv0YjRlgv1ueo27YL O5z7HsuDavRNU0JAH8GbTs Ml9acNMfGEXiXT2rJeLqqP KzLPElbb10rVclTKfaGQA9 AZVnvrVzy6Pwb9nqJvSiyw SdE0rkO1ExHBQtTDYwBWNq PePbabTxx7Xoo0ZnuYBxfF d0a0zcAWOsOSZenShvk2gd SNG7FCJpsLGnY8qwkA9fEA CwMA8trkxcl2skGUwxHVng SESucCM2bdO3NIMdvVKuN8 YhtM1cQNLzZNxtUICwwoh6 LfElYz8psMCbhRqpEXywSa twYWdlXHBnbmNvbnRccGdu ZGVjXHBsYWluXHBsYWluXG YwXGZzMjRccWxcbGFuZzEw MzNcaGljaFxmMVxkYmNoXG TvRYpwP0miZeCdMrIhPil5 HWAxuCRjNZJkOgn0SEUzhH NmYTJTmSmxhU1eEFUjvNur cO0rjYV2WKFhlyXhnYHYsG 0kCZDFjC2yGfJiCKPbEfW0 LTcxNjNccGFyfX0= CPT Code(s) (test code w3fsjCCnVEIrhIS7EqYwPO = 3357) Izu8dpy7XrqFWtwTRjZDer mWCjxtBoeu02iJE1gT53DA 3bAVZzApE7DEGqpwD1Kok7 RRAaGLShuCEaE479s2tde0 krjhLkpTG3mJnpIRGiOAQc YWluXGZzMjAgODgzMDUgWD RuNVv1PbOwDOuqDIRhgp3= CLINICAL HISTORY (test v4ltlHPmSCJvtMI9UnHkBV code = 3356) Lzc7rut9JtiQKcmZBbUBti tVBxcxNpqu78iPV5yZ71IG 2wYLCcUeP8FWMhpiB9Szu4 WQJwEMSkfTPfC127l6oit2 strgAayUE5kVnoZSQcHQAc MGimQWUlWeBtTFugKsM9xG TzeSrzHSCay5VzjLTbzIXf k086MJJpv85paHX3CZRcu5 y8aQOrhXGhSFYzzmYvZWev zSJ8jhYsqIEfqZ9muM5sZY DamHrsXbFgt87djKOpk06r YXXvv1PeV5jgaOJxSLKcbq Roi6BoSv8ofCmgqS6ooMPd pCEuPXQvdBfqVQXaf3MkX0 UgXHBhcn0= SPECIMEN SOURCE (test v2muuOTcOKEsvEM1UsCeQV code = 3377) Poi3sbj2XszNOtsRIaWJow aVCzwzNlon43eFQ3iD67NM 7rTUHrUaI9BSVgngT0Oka2 YTXkYDMrtTThQ766t5nlw2 xmwmYopOT9jXqgMCFtIUFu OAyeEAQfZrZkBH4aH25trE U8yXVimOGaDVZqZwScUZIu FU97SuITByZUq99jSYzvQO J9 GROSS DESCRIPTION (test f1qnlCMmHSPmfWZ8LsJcYI code = 3366) Kfc8fxd4RznKSubOTxMCyv lVOsapLvxm75nBZ8sU17IZ 0rBDPxScR6YJTxqyB3Ucx3 RZErBUXmuYWkN697u8nfo8 dkmiVszAJ4vNqqEOMoPPCk ODxxBAKyZiEtDQ7aCSejEZ RjMTGfhTBdGSjsBPPyO4Hy uxWyQMbyDFUcT93qlIBlxu TeACkccBjiZu4vwXHyaU3k iXGrTFiwIZT4rSLeJGZ3eo OyVGHkEZ29WLaeFY85oXYz TMTmOGBlOIZny56bmST9dG FnxHRcNAYyUmJzKRBgFU57 Ec2gXUYrQ42xy1cwmQCnf9 MnKZUvHKvmFT00VWwzGJ3n PGIsNWIcDHyvNX03YQ0rOW Moah15pGm0HED8jQHnjSQi e7ubD3hgwIEkGz2lZEwnfW EhqFNoEnGPbFMijNP2CQVk iY5yKIFcLVG5QVQnxRdtiV DlBGOcGAdstYUdT9C8eQ7q McTeJVAtwufhNWJoFy4sEQ hlIHNwZWNpbWVuIGlzIHJl Y5QfdvBpZBxwRAJbK07zpC RivhFtOOoycPgcSl9vpVRg lH0tgAWeNJfbBEN1zMZmRL F9wtOeVJZeFT04NIabMY56 sSQiPESnMHPkPTWeMk1mAX DyGUo2FFRxuySgy9YkVV4j QXFsPB50IMcsKPA1RMEtC0 0aGsNaP07eguZbn2JnAb6k XNL5zCBoPVMirXpebIsbmx KzUEY6yNnaX3PuWOPih1Ij CLUtY4Ind23iGMMkgqVtf6 ZkiJr8fCAgPIdpISQfIXVq hOBmRUIlA6ZpH9mryDNoaX albu0iWMSuK4ZeWDCngp2= MICROSCOPIC DESCRIPTION j4hmbVRuLKPipZQ3MaCwOS (test code = 3371) Xup5gnt1ZdzWAvoKXkGXkr tBMvjfQeaz19wSW4oV26QK 1zAYSmLtU9YRNellX3Ced8 RGTzTAPoyIEfK316y2mvk9 xlukXscUS3lBvzTKGtJPVr SQqzGIEfMrRkSQ3PFdRFGG Uaw0BiFFOwSZnqWLD0 Gross assessment was [facility] performed at ([facility], Department = 2777) of Pathology, [address] [place] [address], Technical component was [facility] performed at ([facility], = 2778) Department of Pathology, [address] [place] [address], [address] [facility] was performed at ([facility], Department code = 2779) of Pathology, [address] [place] [address], [facility] [id number] 09:25:00 Test Item Value Reference Range Interpretation Comments Case Report (test code Surgical Pathology = 104) Report Case: [id number] Authorizing Provider: Laura Nguyen MD Collected: 09/26/2020 07:56 AM Ordering Location: [address] Med/Surg Received: 09/26/2020 08:55 AM Pathologist: Hilda Mack MD Specimens: A) - Soft Tissue, Debridement, LEFT FOOT BONE CLEAN MARGIN. B) - Bone, LEFT FOOT 5TH METATARSAL HEAD. DIAGNOSIS (test code = [id number] 3220) FuZzEwMzNcZnRuYmpcdWMx IHtccnRmMVxlcGljOTIwMl xolwSdJROyyUFtJ2Gosvzw CCbiYD4yDH9orMilgNFnjV IyVXXsXaGnh1ipw659oXKy b6ggWOALtqsdgHg3bZfcR6 2nx7R6VulnM58loRJfTZjc bGFpblxmczIwIEEuIEJPTk HdYXdQHnNwDs6IDPRJZOCB LnLYFLOECG5dFNPTQ1OPAA pjtVMwHXJyZR9kLb6DAZAB IhLfDegRFu0KL73SXJGWUQ IVOUSMB5XXFGkeWcLHBIAB MiDfSh1YRAWJJXSAKD2TUK VPTVlFTElUSVNccGFyXHBh lcFTZcBXK40DAIMUFHCRWC OTC8VrUVFKQX0GDCFOKBLI KPwjYZWCPLgwTY8PBTAOUS lCGrlkdNQkLOXcTD4gNSFR YIRtMH2QHWUWWa3LHYBoB0 FGHX3WOFDICGCWQuOmhLZb uBvxryWdZSjdq8YsSBllZD LdCX8isMslPGTsMJ7gNKSy T7zgjX4fuge0OhDhBWNiXh I0SHZoaoT3Fda1XLMfWVur x3iyp1EfRJCmXBr8wDidOd FtCKZio3dhyfOrRjXlTQXb GTRhIPCxfMLkP819i7lmy1 ngxvYydSG7MZTuASH1SEoy raEpbpE7VDoqdJNpMjF6ZS tccmVkMFxncmVlbjBcYmx1 OUDxF470GYN0tAlfa8pwVJ K7KYFwGWZqOuVmHr1xhIGk T058CUFqIHNWAIDaeXn3PO UjmbZmbeGpoFREh980Y163 p4dgXSAhlaSsmCyMnhsid5 meI235PTCqjCIwzgByIcUl CBLqaRWbsFC6QFQkQM1qvy bcEOikGDlcQTAwheD4CALi qYNbB7DsLMOgCK3gosiyDK F3HOcsURFjNJL7UtSrAYXh h6Czhiw9XiLxxe9zrj32QR W5w3UfdCjhAJI0SYP4YzRe Uz7fiYGxEWQdMC2gAjGpnV OmILBvmq36bKdhEIiiXHL3 UXWalcFda6Qsg6rrVvYjug NfV1lnT3IkPPJjFHRrAOVq CeVeaeLyr9Kjd8ChxQRibA g4y6pfYYWwARQkuGiwn9th ANB7QMVqaFAtL5hebE0nNS WiAP9ognrlt2cuUYsiXSke ADGhcDD7rqZ8LOTttBLrY6 KkoP4cOHIeHShzKUXlkwd2 KzDaYi7mdWKxbKuqEIvwDo twYWdlXHBnbmNvbnRccGdu ZGVjXHBsYWluXHBsYWluXG YwXGZzMjRccWxcbGFuZzEw MzNcaGljaFxmMVxkYmNoXG NoAUlbI2gtKaVdKiTcSkh8 ZFQqlZBuEQAmQuf1JWRhkK SfBRBLtFqzqR0wVITnlOoo sH9lzWQ0GTNvkkFtlWVYjD 5jLWEFuY5cKnEhGYFiNaW8 LTcxNjNccGFyfX0= CPT Code(s) (test code i0lwoYMpTTZaxBQ5XxNmHU = 3357) Hml4olf2HqrXEvtMVmZJcq eSLdrrZcfu50sCV5fE46NU 1qCVCzGeR9QHWphmO3Lay7 WQIxARQjdAEaY336m7zom8 lgtmTppQZ2pXmxBFRjXDDq YWluXGZzMjAgODgzMDUgWD EnDZv8EeXrTYseNERjfq7= CLINICAL HISTORY (test f9rikSTaNYMhpZQ9FqFiLY code = 3356) Lxe1ium8ObeHGtgGGzNFod aKKvxkUarn80kMS9iR63TC 5sTDErHqR7SMAulqZ6Ala2 AFWfCNXqfPIoK159k3hpe4 wizdCbgZH9oQfzQEWxDLNt IBvwMUUmTmXeQFufWfT0nO CltHakGDCnb2UmgZLowNAl u585PYPkr31bkAM6QLBic7 h3bEOhyNPqWXMoxyNkZAeq kGJ8coFihKVjlL8zxV5dLE JtxQbdChEci39ifEKne05w HEJhk6TcM0dowLOqTPHfdc Och8IoYo9vwEnaaA3rmYKg mONuVOSigRwgKWKgg4ZyK0 UgXHBhcn0= SPECIMEN SOURCE (test v4zmcDKiJTAnmPX2SbDpWF code = 3377) Ahe9cat8DkfMJvxEEiFTfq fZJcmpKmby41eUX6yW64OY 6wHASuAcB2CLKmlvR1Pki3 ZQVkCDDavINtD317x2mdt2 jhduRetBB0xYxlHRCtKZZl RIygOFKfFrRsDM9jV21rvJ G1pFMaeTUuMGOnLrHkDHOj BM83ZfKEXyLBc55mEGbfIH J9 GROSS DESCRIPTION (test w8qvcJTdZJFizAE6SiSfVD code = 3366) Tdn5zin1MqeQVdsFLkJBcy kHKvbwPhqz59pLW8rW22YY 8aOWZeBdI6WFJnzrZ6Lpn2 ELNkWFCfqXRsK001w1qdw0 fnneAovXU0sMucVRIuCUUt NSjoRZFsXiHoCX5bUJbcRU JiVVDfdIApWHoyQDKdJ7Ym vdUtSUmkBQJgX68ubDLaqi IcICpgxZzzAz0jeITysJ3i nHReUEilBAV0eVMlIRJ8ct TiMFKwYN77VEauED33lYRd AZVtYLZuKNRth52xaTZ9hX QnxJTtTKWdNzLmMLPrRD68 Np1fZWKhF90vh4iwyOYkd8 JqTETcGNrqIO89MGooUK2r VRYsNMOlNUebHC35LO1lPD Zkoc73wTk0SRF3eLGqcBDr p1hfY8skrLMbVz9nNFyzgD LunZIpRrMGcWZwhWB1QIBu nI2nNBMcIYY1ULSvyLchbW KfXTClKIxanQHpX9L5cC9n EyPwFEKxichjRHKoAe9sTH hlIHNwZWNpbWVuIGlzIHJl Q1SshfTaCDdwNJQuD33uqF AwhtMsXXebvYwzAj6aiTMx fY4cgNXgXIpoNJK3kCDzQG I5dfNaKLFrYK47ZYgbDZ70 iDPbRQKpIQAiHYHxRt2gOR OpLUc8DGZlxsUof3ZpHE2w DLYyVW73RZcaSEU4HDHvF3 4lIeWkP82gcsMgu0MiUz6x CSY4eSHjCSEstQdtaDzrtf DzINW1gDdwU2CjPBOce7Tw PCBfD7Gbc90dULRxtvNen1 ZanLz2cCZpTIymNFIuIUDd eHHqDSAkK1KhK9eumRYmtP duul8jURBkF5EsXTFvnq0= MICROSCOPIC DESCRIPTION x8ynoVHhCNMekZV6PaGaOU (test code = 3371) Hfr2otn6VgoBPboMUqVVvr pEMgyuLhrb48zZV5jI52AD 2iDIJpUaC5OZCljyE0Woc3 IOIzBZOpjOYuT523n6ear8 asrvNiwWO2oCsdQVXpGYPr HAalHSEaBcKgEO7GWzEQWQ Hot1XbCSAzLZdaZXB8 Gross assessment was [facility] performed at (test [facility], Department = 2777) of Pathology, [address] [place] [address], Technical component was [facility] performed at ([facility], = 2778) Department of Pathology, [address] [place] [address], Professional component [facility] was performed at ([facility], Department code = 2779) of Pathology, [address] [place] [address], [facility] HospitalTISSUE [id number] 09:25:00Surgical Pathology Report Case: [id number] Authorizing Provider: Laura Nguyen MD Collected: 09/26/2020 07:56 AM Ordering Location: [address] Med/Surg Received: 09/26/2020 08:55 AM Pathologist: Hilda Mack MD Specimens: A) - Soft Tissue, Debridement, LEFT FOOT BONE CLEAN MARGIN. B) -Bone, LEFT FOOT 5TH METATARSAL HEAD. A. BONE, LEFT FOOT CLEAN MARGIN, BIOPSY: - BONE AND FIBROCONNECTIVE TISSUE, NEGATIVE FOR ACUTE OSTEOMYELITISB. BONE, LEFT FOOT 5TH METATARSAL HEAD, AMPUTATION: - ACUTE AND CHRONIC OSTEOMYELITIS Signing Pathologist Direct Phone Line: [phone] signed by Hilda Mack MD on 10/01/2020 at 9:25 [id number] X2, [id number] ulcer of left foot associated with diabetes [...] submitted in B1 after decalcification. [place]/Shyanne-B. Performed. [facility], Department of Pathology, [address] [place] [address], [facility], Department of Pathology, [address] [place] [address], [facility], Department of Pathology, [address] [place] [address], [facility]-Glucose [id number] 12:31:00 Test Item Value Reference Range Interpretation Comments POC-Glucose Meter (test 178 mg/dL 70-110 H : No tified RN/MD: code = 1538) TESTED AT [place] [address] 478: Director Supply/Techni cornelia ID = [id number] for Salvatore Ramírez t Lab Interpretation (test Abnormal code = 97346-4) [facility] [id number] 12:31:00 Test Item Value Reference Range Interpretation Comments POC-Glucose Meter (test 178 mg/dL 70-110 H : No tified RN/MD: code = 1538) TESTED AT [place] [address] 478: Director Supply/Techni cornelia ID = [id number] for Salvatore Ramírez t Lab Interpretation (test Abnormal code = 09677-6) [facility] [id number] 12:31:00 Test Item Value Reference Range Interpretation Comments POC-Glucose Meter (test 178 mg/dL 70-110 H : No tified RN/MD: code = 1538) TESTED AT [place] [address] 478: Director Supply/Techni cornelia ID = [id number] for Salvatore Ramírez t Lab Interpretation (test Abnormal code = 62470-9) [facility] [id number] 12:31:00 Test Item Value Reference Range Interpretation Comments POC-Glucose Meter (test 178 mg/dL 70-110 H : No tified RN/MD: code = 1538) TESTED AT [address] [address] 478: Director Supply/Techni cornelia ID = [id number] for Salvatore Ramírez Lab Interpretation (test Abnormal code = 48271-9) [facility]-Glucose [id number] 12:31:00 Test Item Value Reference Range Interpretation Comments POC-Glucose Meter (test 178 mg/dL 70-110 H : No tified RN/MD: code = 1538) TESTED AT [place] [address] 478: Director Supply/Techni cornelia ID = [id number] for Salvatore Ramírez Lab Interpretation (test Abnormal code = 21682-1) [facility]-Glucose [id number] 12:31:00 Test Item Value Reference Range Interpretation Comments POC-Glucose Meter (test 178 mg/dL 70-110 H : No tified RN/MD: code = 1538) TESTED AT [place] [address] 478: Director Supply/Techni cornelia ID = [id number] for Salvatore Ramírez Lab Interpretation (test Abnormal code = 01429-3) [facility]-Glucose [id number] 12:31:00 Test Item Value Reference Range Interpretation Comments POC-Glucose Meter (test 178 mg/dL 70-110 H : No tified RN/MD: code = 1538) TESTED AT [place] [address] 478: Director Supply/Techni cornelia ID = [id number] for Salvatore Ramírez Lab Interpretation (test Abnormal code = 38154-9) [facility]-GLUCOSE [id number] 12:31:00 Test Item Value Reference Range Interpretation Comments POC-GLUCOSE METER 178 mg/dL 70-110 H : Notified RN/MD: TESTED (BEAKER) (test code AT [address] = 1538) [facility] [address]: Director Supply/Techni cornelia ID = [id number] for Cony Osborne Basic Metabolic [id number] 06:00:00 Test Item Value Reference Range Interpretation Comments Sodium (test code = 138 meq/L 738-424 9247-2) Potassium (test code 4.3 meq/L 3.6-5.5 = 2823-3) Chloride (test code 101 meq/L 98-106 = 2075-0) CO2 (test code = 31 meq/L 20-29 H 2027-) BUN (test code = 54 mg/dL 10-26 H 3094-0) Creatinine (test 2.16 mg/dL 0.5-1.2 H code = 2160-0) Glucose (test code = 177 mg/dL 70-110 H 2345-7) Calcium (test code = 8.9 mg/dL 8.5-10.5 56524-3) EGFR (test code = 33 mL/min/1.73 [place] [address]-8) m NOT ACCURATE CREATININE CLEARANCE IN PREDICTING GLOMERULAR FILTRATION RATE . ESTIMATED GFR I S NOT APPLICABLE FOR DIALYSIS PATIENTS. ISSA (test code = Director Supply ID - ISSA) JBERNOperator ID - JBERNOperator ID - JBERNOperator ID - JBERNOperator ID - JBERNOperator ID - JBERNOperator ID - JBERNOperator ID - JBERNOperator ID - JBERNOperator ID - JBERN Lab Interpretation Abnormal (test code = 93623-6) [facility] [id number] 06:00:00 Test Item Value Reference Range Interpretation Comments Sodium (test code = 138 meq/L 006-999 7419-2) Potassium (test code 4.3 meq/L 3.6-5.5 = 2823-3) Chloride (test code 101 meq/L 98-106 = 2075-0) CO2 (test code = 31 meq/L 20-29 H 2027-11) BUN (test code = 54 mg/dL 10-26 H 3094-0) Creatinine (test 2.16 mg/dL 0.5-1.2 H code = 2160-0) Glucose (test code = 177 mg/dL 70-110 H 2345-7) Calcium (test code = 8.9 mg/dL 8.5-10.5 32648-6) EGFR (test code = 33 mL/min/1.[place] [address]-0) m NOT ACCURATE CREATININE CLEARANCE IN PREDICTING GLOMERULAR FILTRATION RATE . ESTIMATED GFR I S NOT APPLICABLE FOR DIALYSIS PATIENTS. ISSA (test code = Director Supply ID - ISSA) JBERNOperator ID - JBERNOperator ID - JBERNOperator ID - JBERNOperator ID - JBERNOperator ID - JBERNOperator ID - JBERNOperator ID - JBERNOperator ID - JBERNOperator ID - JBERN Lab Interpretation Abnormal (test code = 48851-0) [facility] Metabolic [id number] 06:00:00 Test Item Value Reference Range Interpretation Comments Sodium (test code = 138 meq/L 799-984 4421-2) Potassium (test code 4.3 meq/L 3.6-5.5 = 2823-3) Chloride (test code 101 meq/L 98-106 = 2075-0) CO2 (test code = 31 meq/L 20-29 H 2028-9) BUN (test code = 54 mg/dL 10-26 H 3094-0) Creatinine (test 2.16 mg/dL 0.5-1.2 H code = 2160-0) Glucose (test code = 177 mg/dL 70-110 H 2345-7) Calcium (test code = 8.9 mg/dL 8.5-10.5 34559-5) EGFR (test code = 33 mL/min/1.[place] [address]-0) m NOT ACCURATE CREATININE CLEARANCE IN PREDICTING GLOMERULAR FILTRATION RATE . ESTIMATED GFR I S NOT APPLICABLE FOR DIALYSIS PATIENTS. ISSA (test code = Director Supply ID - ISSA) JBERNOperator ID - JBERNOperator ID - JBERNOperator ID - JBERNOperator ID - JBERNOperator ID - JBERNOperator ID - JBERNOperator ID - JBERNOperator ID - JBERNOperator ID - JBERN Lab Interpretation Abnormal (test code = 62865-5) [facility] Metabolic [id number] 06:00:00 Test Item Value Reference Range Interpretation Comments Sodium (test code = 138 meq/L 711-313 7467-2) Potassium (test code 4.3 meq/L 3.6-5.5 = 2823-3) Chloride (test code 101 meq/L 98-106 = 2075-0) CO2 (test code = 31 meq/L 20-29 H 2027-9) BUN (test code = 54 mg/dL 10-26 H 3094-0) Creatinine (test 2.16 mg/dL 0.5-1.2 H code = 2160-0) Glucose (test code = 177 mg/dL 70-110 H 2345-7) Calcium (test code = 8.9 mg/dL 8.5-10.5 02464-3) EGFR (test code = 33 mL/min/1.[place] [address]-3) m NOT ACCURATE CREATININE CLEARANCE IN PREDICTING GLOMERULAR FILTRATION RATE . ESTIMATED GFR I S NOT APPLICABLE FOR DIALYSIS PATIENTS. ISSA (test code = Director Supply ID - ISSA) JBERNOperator ID - JBERNOperator ID - JBERNOperator ID - JBERNOperator ID - JBERNOperator ID - JBERNOperator ID - JBERNOperator ID - JBERNOperator ID - JBERNOperator ID - JBERN Lab Interpretation Abnormal (test code = 26489-8) [facility] Metabolic [id number] 06:00:00 Test Item Value Reference Range Interpretation Comments Sodium (test code = 138 meq/L 714-676 8936-2) Potassium (test code 4.3 meq/L 3.6-5.5 = 2823-3) Chloride (test code 101 meq/L 98-106 = 2075-0) CO2 (test code = 31 meq/L 20-29 H 2027-9) BUN (test code = 54 mg/dL 10-26 H 3094-0) Creatinine (test 2.16 mg/dL 0.50-1.20 H code = 2160-0) Glucose (test code = 177 mg/dL 70-110 H 2345-7) Calcium (test code = 8.9 mg/dL 8.5-10.5 73584-7) EGFR (test code = 33 mL/min/1.[place] [address]-1) m NOT ACCURATE CREATININE CLEARANCE IN PREDICTING GLOMERULAR FILTRATION RATE . ESTIMATED GFR I S NOT APPLICABLE FOR DIALYSIS PATIENTS. ISSA (test code = Director Supply ID - ISSA) JBERNOperator ID - JBERNOperator ID - JBERNOperator ID - JBERNOperator ID - JBERNOperator ID - JBERNOperator ID - JBERNOperator ID - JBERNOperator ID - JBERNOperator ID - JBERN Lab Interpretation Abnormal (test code = 36025-7) [facility] Metabolic [id number] 06:00:00 Test Item Value Reference Range Interpretation Comments Sodium (test code = 138 meq/L 632-077 7009-2) Potassium (test code 4.3 meq/L 3.6-5.5 = 2823-3) Chloride (test code 101 meq/L 98-106 = 2075-0) CO2 (test code = 31 meq/L 20-29 H 2027-9) BUN (test code = 54 mg/dL 10-26 H 3094-0) Creatinine (test 2.16 mg/dL 0.50-1.20 H code = 2160-0) Glucose (test code = 177 mg/dL 70-110 H 2345-7) Calcium (test code = 8.9 mg/dL 8.5-10.5 04973-1) EGFR (test code = 33 mL/min/1.[place] [address]-5) m NOT ACCURATE CREATININE CLEARANCE IN PREDICTING GLOMERULAR FILTRATION RATE . ESTIMATED GFR I S NOT APPLICABLE FOR DIALYSIS PATIENTS. ISSA (test code = Director Supply ID - ISSA) JBERNOperator ID - JBERNOperator ID - JBERNOperator ID - JBERNOperator ID - JBERNOperator ID - JBERNOperator ID - JBERNOperator ID - JBERNOperator ID - JBERNOperator ID - JBERN Lab Interpretation Abnormal (test code = 45906-8) [facility] Metabolic [id number] 06:00:00 Test Item Value Reference Range Interpretation Comments Sodium (test code = 138 meq/L 254-178 6261-2) Potassium (test code 4.3 meq/L 3.6-5.5 = 2823-3) Chloride (test code 101 meq/L 98-106 = 2075-0) CO2 (test code = 31 meq/L 20-29 H 8-9) BUN (test code = 54 mg/dL 10-26 H 3094-0) Creatinine (test 2.16 mg/dL 0.50-1.20 H code = 2160-0) Glucose (test code = 177 mg/dL 70-110 H 2345-7) Calcium (test code = 8.9 mg/dL 8.5-10.5 03017-0) EGFR (test code = 33 mL/min/1.[place] [address]-1) m NOT ACCURATE CREATININE CLEARANCE IN PREDICTING GLOMERULAR FILTRATION RATE . ESTIMATED GFR I S NOT APPLICABLE FOR DIALYSIS PATIENTS. ISSA (test code = Director Supply ID - ISSA) JBERNOperator ID - JBERNOperator ID - JBERNOperator ID - JBERNOperator ID - JBERNOperator ID - JBERNOperator ID - JBERNOperator ID - JBERNOperator ID - JBERNOperator ID - JBERN Lab Interpretation Abnormal (test code = 71321-6) [facility] METABOLIC [id number] 06:00:00 Test Item Value Reference Range Interpretation [...] S NOT APPLICABLE FOR DIALYSIS PATIEN TS. Director Supply ID - JBERNOperator ID - JBERNOperator ID - JBERNOperator ID - JBERNOperator ID - JBERNOperator ID - JBERNOperator ID - JBERNOperator ID - JBERNOperator ID - JBERNOperator ID - BBXQLVzevtscqe7095-04-04 05:42:00 Test Item Value Reference Range Interpretation Comments Magnesium (test code = 2.2 mg/dL 1.5-3 09635-2) ISSA (test code = ISSA) Director Supply ID - JBERNOperator ID - JBERNOperator ID - JBERNOperator ID - JBERN Lab Interpretation Normal (test code = 85453-6) [facility]2021-07-04 05:42:00 Test Item Value Reference Range Interpretation Comments Magnesium (test code = 2.2 mg/dL 1.5-3 54879-3) ISSA (test code = ISSA) Director Supply ID - JBERNOperator ID - JBERNOperator ID - JBERNOperator ID - JBERN Lab Interpretation Normal (test code = 51823-9) [facility]2021-07-04 05:42:00 Test Item Value Reference Range Interpretation Comments Magnesium (test code = 2.2 mg/dL 1.5-3 75802-0) ISSA (test code = ISSA) Director Supply ID - JBERNOperator ID - JBERNOperator ID - JBERNOperator ID - JBERN Lab Interpretation Normal (test code = 17660-8) [facility]2021-07-04 05:42:00 Test Item Value Reference Range Interpretation Comments Magnesium (test code = 2.2 mg/dL 1.5-3 28815-7) ISSA (test code = ISSA) Director Supply ID - JBERNOperator ID - JBERNOperator ID - JBERNOperator ID - JBERN Lab Interpretation Normal (test code = 72639-8) [facility]2021-07-04 05:42:00 Test Item Value Reference Range Interpretation Comments Magnesium (test code = 2.2 mg/dL 1.5-3.0 95457-5) ISSA (test code = ISSA) Director Supply ID - JBERNOperator ID - JBERNOperator ID - JBERNOperator ID - JBERN Lab Interpretation Normal (test code = 26827-4) [facility]2021-07-04 05:42:00 Test Item Value Reference Range Interpretation Comments Magnesium (test code = 2.2 mg/dL 1.5-3.0 76806-9) ISSA (test code = ISSA) Director Supply ID - JBERNOperator ID - JBERNOperator ID - JBERNOperator ID - JBERN Lab Interpretation Normal (test code = 40853-8) [facility] 05:[facility] Test Item Value Reference Range Interpretation Comments Magnesium (test code = 2.2 mg/dL 1.5-3.0 64616-5) ISSA (test code = ISSA) Director Supply ID - JBERNOperator ID - JBERNOperator ID - JBERNOperator ID - JBERN Lab Interpretation Normal (test code = 37994-4) [facility] Test Item Value Reference Range Interpretation Comments MAGNESIUM (BEAKER) (test code = 2.2 mg/dL 1.5-3.0 627) Director Supply ID - JBERNOperator ID - JBERNOperator ID - JBERNOperator ID - JBERNCBC with platelet count + automated [id number] 05:17:00 Test Item Value Reference Range Interpretation Comments WBC (test code = 6690-2) 7.6 See_Comment [A utomated message] The system zuuka! generated this result transmitted ref erence range: 4.0 - 10 .0 K/L. The refe rence range was not u sed to interpret this result as normal/abnor mal. RBC (test code = 789-8) 3.54 See_Comment L [Au tomated message] The system zuuka! generated this result transmitted ref erence range: 4.20 - 5 .80 M/L. The refe rence range was not u sed to interpret this result as normal/abnor mal. MCHC (test code = 786-4) 31.0 See_Comment L [A utomated message] The system zuuka! generated this result transmitted ref erence range: [...] See_Comment [Aut omated message] 777-3) The system zuuka! generated this result transmitted ref erence range: 150 - 43 0 K/CU MM. The referen ce range was not u sed to interpret this result as normal/abnor mal. MPV (test code = 11.1 fL 6-11.5 12156-0) nRBC (test code = 413) 0 See_Comment [Aut omated message] The system zuuka! generated this result transmitted ref erence range: [...] See_Comment [Aut omated message] 670) The system [employer]uka! generated this result transmitted ref erence range: 1.80 - 8 .00 K/L. The refe rence range was not u sed to interpret this result as normal/abnor mal. # Lymphs (test code = 0.97 See_Comment L [Auto mated message] 414) The system zuuka! generated this result transmitted ref erence range: 1.48 - 4 .50 K/L. The refe rence range was not u sed to interpret this result as normal/abnor mal. # Monos (test code = 0.74 See_Comment [Autom ated message] 415) The system zuuka! generated this result transmitted ref erence range: 0.00 - 1 .30 K/L. The refe rence range was not u sed to interpret this result as normal/abnor mal. # Eos (test code = 416) 0.21 See_Comment [Au tomated message] The system zuuka! generated this result transmitted ref erence range: 0.00 - 0 .50 K/L. The refe rence range was not u sed to interpret this result as normal/abnor mal. # Baso (test code = 417) 0.05 See_Comment [A utomated message] The system zuuka! generated this result transmitted ref erence range: 0.00 - 0 .20 K/L. The refe rence range was not u sed to interpret this result as normal/abnor mal. Immature 1 % 0-0 H Granulocytes-Relative (test code = 2801) Lab Interpretation (test Abnormal code = 21215-3) [facility] with platelet count + automated [id number] 05:17:00 Test Item Value Reference Range Interpretation Comments WBC (test code = 6690-2) 7.6 See_Comment [A utomated message] The system zuuka! generated this result transmitted ref erence range: 4.0 - 10 .0 K/L. The refe rence range was not u sed to interpret this result as normal/abnor mal. RBC (test code = 789-8) 3.54 See_Comment L [Au tomated message] The system zuuka! generated this result transmitted ref erence range: 4.20 - 5 .80 M/L. The refe rence range was not u sed to interpret this result as normal/abnor mal. MCHC (test code = 786-4) 31.0 See_Comment L [A utomated message] The system zuuka! generated this result transmitted ref erence range: [...] code = 230 See_Comment [Aut omated message] 817-3) The system zuuka! generated this result transmitted ref erence range: 150 - 43 0 K/CU MM. The referen ce range was not u sed to interpret this result as normal/abnor mal. MPV (test code = 11.1 fL 6-11.5 16296-4) nRBC (test code = 413) 0 See_Comment [Aut omated message] The system zuuka! generated this result transmitted ref erence range: [...] See_Comment [Aut omated message] 670) The system zuuka! generated this result transmitted ref erence range: 1.80 - 8 .00 K/L. The refe rence range was not u sed to interpret this result as normal/abnor mal. # Lymphs (test code = 0.97 See_Comment L [Auto mated message] 414) The system zuuka! generated this result transmitted ref erence range: 1.48 - 4 .50 K/L. The refe rence range was not u sed to interpret this result as normal/abnor mal. # Monos (test code = 0.74 See_Comment [Autom ated message] 415) The system zuuka! generated this result transmitted ref erence range: 0.00 - 1 .30 K/L. The refe rence range was not u sed to interpret this result as normal/abnor mal. # Eos (test code = 416) 0.21 See_Comment [Au tomated message] The system zuuka! generated this result transmitted ref erence range: 0.00 - 0 .50 K/L. The refe rence range was not u sed to interpret this result as normal/abnor mal. # Baso (test code = 417) 0.05 See_Comment [A utomated message] The system zuuka! generated this result transmitted ref erence range: 0.00 - 0 .20 K/L. The refe rence range was not u sed to interpret this result as normal/abnor mal. Immature 1 % 0-0 H Granulocytes-Relative (test code = 2801) Lab Interpretation (test Abnormal code = 80793-4) [facility] with platelet count + automated [id number] 05:17:00 Test Item Value Reference Range Interpretation Comments WBC (test code = 6690-2) 7.6 See_Comment [A utomated message] The system zuuka! generated this result transmitted ref erence range: 4.0 - 10 .0 K/L. The refe rence range was not u sed to interpret this result as normal/abnor mal. RBC (test code = 789-8) 3.54 See_Comment L [Au tomated message] The system zuuka! generated this result transmitted ref erence range: 4.20 - 5 .80 M/L. The refe rence range was not u sed to interpret this result as normal/abnor mal. MCHC (test code = 786-4) 31.0 See_Comment L [A utomated message] The system zuuka! generated this result transmitted ref erence range: [...] See_Comment [Aut omated message] 777-3) The system zuuka! generated this result transmitted ref erence range: 150 - 43 0 K/CU MM. The referen ce range was not u sed to interpret this result as normal/abnor mal. MPV (test code = 11.1 fL 6-11.5 85218-3) nRBC (test code = 413) 0 See_Comment [Aut omated message] The system zuuka! generated this result transmitted ref erence range: [...] See_Comment [Aut omated message] 670) The system zuuka! generated this result transmitted ref erence range: 1.80 - 8 .00 K/L. The refe rence range was not u sed to interpret this result as normal/abnor mal. # Lymphs (test code = 0.97 See_Comment L [Auto mated message] 414) The system zuuka! generated this result transmitted ref erence range: 1.48 - 4 .50 K/L. The refe rence range was not u sed to interpret this result as normal/abnor mal. # Monos (test code = 0.74 See_Comment [Autom ated message] 415) The system zuuka! generated this result transmitted ref erence range: 0.00 - 1 .30 K/L. The refe rence range was not u sed to interpret this result as normal/abnor mal. # Eos (test code = 416) 0.21 See_Comment [Au tomated message] The system zuuka! generated this result transmitted ref erence range: 0.00 - 0 .50 K/L. The refe rence range was not u sed to interpret this result as normal/abnor mal. # Baso (test code = 417) 0.05 See_Comment [A utomated message] The system zuuka! generated this result transmitted ref erence range: 0.00 - 0 .20 K/L. The refe rence range was not u sed to interpret this result as normal/abnor mal. Immature 1 % 0-0 H Granulocytes-Relative (test code = 2801) Lab Interpretation (test Abnormal code = 26080-0) [facility] with platelet count + automated [id number] 05:17:00 Test Item Value Reference Range Interpretation Comments WBC (test code = 6690-2) 7.6 See_Comment [A utomated message] The system zuuka! generated this result transmitted ref erence range: 4.0 - 10 .0 K/L. The refe rence range was not u sed to interpret this result as normal/abnor mal. RBC (test code = 789-8) 3.54 See_Comment L [Au tomated message] The system zuuka! generated this result transmitted ref erence range: 4.20 - 5 .80 M/L. The refe rence range was not u sed to interpret this result as normal/abnor mal. MCHC (test code = 786-4) 31.0 See_Comment L [A utomated message] The system zuuka! generated this result transmitted ref erence range: [...] See_Comment [Aut omated message] 777-3) The system zuuka! generated this result transmitted ref erence range: 150 - 43 0 K/CU MM. The referen ce range was not u sed to interpret this result as normal/abnor mal. MPV (test code = 11.1 fL 6-11.5 96643-4) nRBC (test code = 413) 0 See_Comment [Aut omated message] The system zuuka! generated this result transmitted ref erence range: [...] See_Comment [Aut omated message] 670) The system [employer] generated this result transmitted ref erence range: 1.80 - 8 .00 K/L. The refe rence range was not u sed to interpret this result as normal/abnor mal. # Lymphs (test code = 0.97 See_Comment L [Auto mated message] 414) The system zuuka! generated this result transmitted ref erence range: 1.48 - 4 .50 K/L. The refe rence range was not u sed to interpret this result as normal/abnor mal. # Monos (test code = 0.74 See_Comment [Autom ated message] 415) The system zuuka! generated this result transmitted ref erence range: 0.00 - 1 .30 K/L. The refe rence range was not u sed to interpret this result as normal/abnor mal. # Eos (test code = 416) 0.21 See_Comment [Au tomated message] The system zuuka! generated this result transmitted ref erence range: 0.00 - 0 .50 K/L. The refe rence range was not u sed to interpret this result as normal/abnor mal. # Baso (test code = 417) 0.05 See_Comment [A utomated message] The system zuuka! generated this result transmitted ref erence range: 0.00 - 0 .20 K/L. The refe rence range was not u sed to interpret this result as normal/abnor mal. Immature 1 % 0-0 H Granulocytes-Relative (test code = 2801) Lab Interpretation (test Abnormal code = 50072-2) [facility] with platelet count + automated [id number] 05:17:00 Test Item Value Reference Range Interpretation Comments WBC (test code = 6690-2) 7.6 See_Comment [A utomated message] The system zuuka! generated this result transmitted ref erence range: 4.0 - 10 .0 K/L. The refe rence range was not u sed to interpret this result as normal/abnor mal. RBC (test code = 789-8) 3.54 See_Comment L [Au tomated message] The system zuuka! generated this result transmitted ref erence range: 4.20 - 5 .80 M/L. The refe rence range was not u sed to interpret this result as normal/abnor mal. MCHC (test code = 786-4) 31.0 See_Comment L [A utomated message] The system zuuka! generated this result transmitted ref erence range: [...] See_Comment [Aut omated message] 777-3) The system [employer]uka! generated this result transmitted ref erence range: 150 - 43 0 K/CU MM. The referen ce range was not u sed to interpret this result as normal/abnor mal. MPV (test code = 11.1 fL 6.0-11.5 19323-8) nRBC (test code = 413) 0 See_Comment [Aut omated message] The system zuuka! generated this result transmitted ref erence range: [...] See_Comment [Aut omated message] 670) The system zuuka! generated this result transmitted ref erence range: 1.80 - 8 .00 K/L. The refe rence range was not u sed to interpret this result as normal/abnor mal. # Lymphs (test code = 0.97 See_Comment L [Auto mated message] 414) The system zuuka! generated this result transmitted ref erence range: 1.48 - 4 .50 K/L. The refe rence range was not u sed to interpret this result as normal/abnor mal. # Monos (test code = 0.74 See_Comment [Autom ated message] 415) The system [employer]uka! generated this result transmitted ref erence range: 0.00 - 1 .30 K/L. The refe rence range was not u sed to interpret this result as normal/abnor mal. # Eos (test code = 416) 0.21 See_Comment [Au tomated message] The system [employer]uka! generated this result transmitted ref erence range: 0.00 - 0 .50 K/L. The refe rence range was not u sed to interpret this result as normal/abnor mal. # Baso (test code = 417) 0.05 See_Comment [A utomated message] The system [employer]uka! generated this result transmitted ref erence range: 0.00 - 0 .20 K/L. The refe rence range was not u sed to interpret this result as normal/abnor mal. Immature 1 % 0-0 H Granulocytes-Relative (test code = 2801) Lab Interpretation (test Abnormal code = 89701-4) [facility] with platelet count + automated [id number] 05:17:00 Test Item Value Reference Range Interpretation Comments WBC (test code = 6690-2) 7.6 See_Comment [A utomated message] The system zuuka! generated this result transmitted ref erence range: 4.0 - 10 .0 K/L. The refe rence range was not u sed to interpret this result as normal/abnor mal. RBC (test code = 789-8) 3.54 See_Comment L [Au tomated message] The system zuuka! generated this result transmitted ref erence range: 4.20 - 5 .80 M/L. The refe rence range was not u sed to interpret this result as normal/abnor mal. MCHC (test code = 786-4) 31.0 See_Comment L [A utomated message] The system zuuka! generated this result transmitted ref erence range: [...] See_Comment [Aut omated message] 777-3) The system zuuka! generated this result transmitted ref erence range: 150 - 43 0 K/CU MM. The referen ce range was not u sed to interpret this result as normal/abnor mal. MPV (test code = 11.1 fL 6.0-11.5 07013-1) nRBC (test code = 413) 0 See_Comment [Aut omated message] The system zuuka! generated this result transmitted ref erence range: [...] See_Comment [Aut omated message] 670) The system zuuka! generated this result transmitted ref erence range: 1.80 - 8 .00 K/L. The refe rence range was not u sed to interpret this result as normal/abnor mal. # Lymphs (test code = 0.97 See_Comment L [Auto mated message] 414) The system zuuka! generated this result transmitted ref erence range: 1.48 - 4 .50 K/L. The refe rence range was not u sed to interpret this result as normal/abnor mal. # Monos (test code = 0.74 See_Comment [Autom ated message] 415) The system zuuka! generated this result transmitted ref erence range: 0.00 - 1 .30 K/L. The refe rence range was not u sed to interpret this result as normal/abnor mal. # Eos (test code = 416) 0.21 See_Comment [Au tomated message] The system zuuka! generated this result transmitted ref erence range: 0.00 - 0 .50 K/L. The refe rence range was not u sed to interpret this result as normal/abnor mal. # Baso (test code = 417) 0.05 See_Comment [A utomated message] The system zuuka! generated this result transmitted ref erence range: 0.00 - 0 .20 K/L. The refe rence range was not u sed to interpret this result as normal/abnor mal. Immature 1 % 0-0 H Granulocytes-Relative (test code = 2801) Lab Interpretation (test Abnormal code = 54166-6) [facility] with platelet count + automated [id number] 05:17:00 Test Item Value Reference Range Interpretation Comments WBC (test code = 6690-2) 7.6 See_Comment [A utomated message] The system zuuka! generated this result transmitted ref erence range: 4.0 - 10 .0 K/L. The refe rence range was not u sed to interpret this result as normal/abnor mal. RBC (test code = 789-8) 3.54 See_Comment L [Au tomated message] The system zuuka! generated this result transmitted ref erence range: 4.20 - 5 .80 M/L. The refe rence range was not u sed to interpret this result as normal/abnor mal. MCHC (test code = 786-4) 31.0 See_Comment L [A utomated message] The system zuuka! generated this result transmitted ref erence range: [...] See_Comment [Aut omated message] 777-3) The system zuuka! generated this result transmitted ref erence range: 150 - 43 0 K/CU MM. The referen ce range was not u sed to interpret this result as normal/abnor mal. MPV (test code = 11.1 fL 6.0-11.5 07116-0) nRBC (test code = 413) 0 See_Comment [Aut omated message] The system zuuka! generated this result transmitted ref erence range: [...] See_Comment [Aut omated message] 670) The system zuuka! generated this result transmitted ref erence range: 1.80 - 8 .00 K/L. The refe rence range was not u sed to interpret this result as normal/abnor mal. # Lymphs (test code = 0.97 See_Comment L [Auto mated message] 414) The system zuuka! generated this result transmitted ref erence range: 1.48 - 4 .50 K/L. The refe rence range was not u sed to interpret this result as normal/abnor mal. # Monos (test code = 0.74 See_Comment [Autom ated message] 415) The system zuuka! generated this result transmitted ref erence range: 0.00 - 1 .30 K/L. The refe rence range was not u sed to interpret this result as normal/abnor mal. # Eos (test code = 416) 0.21 See_Comment [Au tomated message] The system zuuka! generated this result transmitted ref erence range: 0.00 - 0 .50 K/L. The refe rence range was not u sed to interpret this result as normal/abnor mal. # Baso (test code = 417) 0.05 See_Comment [A utomated message] The system zuuka! generated this result transmitted ref erence range: 0.00 - 0 .20 K/L. The refe rence range was not u sed to interpret this result as normal/abnor mal. Immature 1 % 0-0 H Granulocytes-Relative (test code = 2801) Lab Interpretation (test Abnormal code = 00990-4) [facility] W/PLT COUNT & AUTO [id number] 05:17:00 Test Item Value Reference Range Interpretation [...] PERCENT (BEAKER) (test code = 2801) POCT-GLUCOSE [id number] 13:00:00 Test Item Value Reference Range Interpretation Comments POC-GLUCOSE METER 114 mg/dL 70-110 H : Notified RN/MD: TESTED (BEAKER) (test code AT [facility] [address] = 1538) [facility] [address]: Director Supply/Techni cornelia ID = [id number] for Cony Osborne ANAEROBIC [id number] 09:52:00 Test Item Value Reference Range Interpretation Comments CULTURE (BEAKER) (test No anaerobes isolated code = 1095) Anaerobic [id number] 09:51:00 Test Item Value Reference Range Interpretation Comments Result (test code = No anaerobes isolated 6463-4) [facility] [id number] 09:51:00 Test Item Value Reference Range Interpretation Comments Result (test code = No anaerobes isolated 6463-4) [facility] [id number] 09:51:00 Test Item Value Reference Range Interpretation Comments Result (test code = No anaerobes isolated 6463-4) [facility] [id number] 09:51:00 Test Item Value Reference Range Interpretation Comments Result (test code = No anaerobes isolated 6463-4) [facility] [id number] 09:51:00 Test Item Value Reference Range Interpretation Comments Result (test code = No anaerobes isolated 6463-4) [facility] [id number] 09:51:00 Test Item Value Reference Range Interpretation Comments Result (test code = No anaerobes isolated 6463-4) [facility] [id number] 09:51:00 Test Item Value Reference Range Interpretation Comments Result (test code = No anaerobes isolated 6463-4) [facility] [id number] 09:51:00 Test Item Value Reference Range Interpretation Comments CULTURE (BEAKER) (test No anaerobes isolated code = 1095) BASIC METABOLIC [id number] 06:34:00 Test Item Value Reference Range Interpretation [...] S NOT APPLICABLE FOR DIALYSIS PATIEN TS. Director Supply ID - [id number] ID - [id number] ID - [id number] ID - [id number] ID - [id number] ID - [id number] ID - [id number] ID - [id number] ID - [id number] ID - [id number]- GLUCOSE [id number] 06:13:00 Test Item Value Reference Range Interpretation Comments POC-GLUCOSE METER 95 mg/dL 70-110 : TESTED A T [facility] [address] (BEAKER) (test code = [address], 1538) [facility] [place] [address]: Director Supply/Techni cornelia ID = [id number] for Agustina Harrison [id number] 05:36:00 Test Item Value Reference Range Interpretation Comments MAGNESIUM (BEAKER) (test code = 1.9 mg/dL 1.5-3.0 627) Director Supply ID - [id number] ID - [id number] ID - [id number] ID - [id number] W/PLT COUNT & AUTO [id number] 05:21:00 Test Item Value Reference Range Interpretation [...] PERCENT (BEAKER) (test code = 2801) POCT-GLUCOSE [id number] 21:10:00 Test Item Value Reference Range Interpretation Comments POC-GLUCOSE METER 137 mg/dL 70-110 H : TESTED A T [facility] [address] (BEAKER) (test code [facility], = 1538) [place] [address]: Director Supply/Techni cornelia ID = [id number] for Agustina Harrison POCT-GLUCOSE [id number] 19:19:00 Test Item Value Reference Range Interpretation Comments POC-GLUCOSE METER 119 mg/dL 70-110 H : TESTED A T [facility] [address] (BEAKER) (test code [facility], = 1538) [place] [address]: Director Supply/Techni cornelia ID = [id number] for Adrienne r, Heidy POCT-GLUCOSE [id number] 12:43:00 Test Item Value Reference Range Interpretation Comments POC-GLUCOSE METER 126 mg/dL 70-110 H : TESTED A T [facility] [address] (BEAKER) (test code [facility] = 1538) [place] [address]: Director Supply/Techni cornelia ID = [id number] for Adrienne r, Heidy POCT-GLUCOSE [id number] 06:47:00 Test Item Value Reference Range Interpretation Comments POC-GLUCOSE METER 132 mg/dL 70-110 H : TESTED A T [facility] [address] (BEAKER) (test code [facility], = 1538) [place] [address]: Director Supply/Techni cornelia ID = [id number] for Dianna sharp Zackary BASIC METABOLIC [id number] 04:59:00 Test Item Value Reference Range Interpretation [...] S NOT APPLICABLE FOR DIALYSIS PATIEN TS. Director Supply ID - [id number] ID - [id number] ID - [id number] ID - [id number] ID - [id number] ID - [id number] ID - [id number] ID - [id number] ID - [id number] ID - [id number] 04:44:00 Test Item Value Reference Range Interpretation Comments MAGNESIUM (BEAKER) (test code = 2.0 mg/dL 1.5-3.0 627) Director Supply ID - [id number] ID - [id number] ID - [id number] ID - [id number] CBC W/PLT COUNT & AUTO [id number] 04:30:00 Test Item Value Reference Range Interpretation [...] PERCENT (BEAKER) (test code = 2801) POCT-GLUCOSE [id number] 23:23:00 Test Item Value Reference Range Interpretation Comments POC-GLUCOSE METER 156 mg/dL 70-110 H : TESTED A T [facility] [address] (BEAKER) (test code [facility], = 1538) [place] [address]: Director Supply/Techni cornelia ID = [id number] for Dianna si Zackary POCT-GLUCOSE [id number] 18:35:00 Test Item Value Reference Range Interpretation Comments POC-GLUCOSE METER 137 mg/dL 70-110 H : TESTED A T [facility] [address] (BEAKER) (test code [facility], = 1538) [place] [address]: Director Supply/Techni cornelia ID = [id number] for Heidy Martin POCT-GLUCOSE [id number] 13:42:00 Test Item Value Reference Range Interpretation Comments POC-GLUCOSE METER 109 mg/dL 70-110 : TESTED A T [facility] [address] (CECILIO) (test code [address], = 1538) [facility] [place] [address]: Director Supply/Techni cronelia ID = [id number] for Heidy Martin, FOOT, MIN 3 VIEWS, [id number] 09:06:00Reason for exam:->s/p 5th metatarsal head resection [facility] 1975 [...] MDReport Verified Date/Time: 09/26/2020 09:06:00 Reading Location: [facility] Radiology Reading Room XR foot 3 views [id number] 09:06:00 Interface, External Ris In - 09/26/2020 [...] Gleason Verified Date/Time: 09/26/2020 09:06:00 Reading Location: [facility] Radiology [facility] [id number] 09:06:00Interface, External Ris In - 09/26/2020 9:08 [...] Gleason Verified Date/Time: 09/26/2020 09:06:00 Reading Location: [facility] Radiology Reading [facility] views [id number] 09:06:00Interface, External Ris In - 09/26/2020 9:08 [...] Gleason Verified Date/Time: 09/26/2020 09:06:00 Reading Location: [facility] Radiology Reading [facility] views [id number] 09:06:00Interface, External Ris In - 09/26/2020 9:08 [...] MDReport Verified Date/Time: 09/26/2020 09:06:00 Reading Location: [facility] Radiology Reading [facility] [id number] 08:47:00 Test Item Value Reference Range Interpretation Comments POC-GLUCOSE METER 134 mg/dL 70-110 H : Notified RN/MD: TESTED (BEAKER) (test code AT [facility] [address] [place] [address] = [address]) [facility] [address]: Director Supply/Techni cornelia ID = [id number] for Lance bauerRafMarzena BASIC METABOLIC [id number] 06:13:00 Test Item Value Reference Range Interpretation [...] S NOT APPLICABLE FOR DIALYSIS PATIEN TS. Director Supply ID - [id number] ID - [id number] ID - [id number] ID - [id number] ID - vrih11Olimrvnm ID - [id number] ID - gghg09Jkkvyjxl ID - [id number] ID - oync07Hacdskqu ID - [id number] 06:08:00 Test Item Value Reference Range Interpretation Comments MAGNESIUM (BEAKER) (test code = 2.2 mg/dL 1.5-3.0 627) Director Supply ID - [id number] ID - [id number] ID - [id number] ID - [id number] B-type Natriuretic Factor (BNP)2020-09-26 06:01:00 Test Item Value Reference Range Interpretation Comments BNP (test code = 74986-3) 929 pg/mL 0-100 H ISSA (test code = ISSA) Director Supply ID - [id number] Lab Interpretation (test Abnormal code = 36103-3) [facility]2020-09-26 06:01:00 Test Item Value Reference Range Interpretation Comments BNP (test code = 74602-9) 929 pg/mL 0-100 H ISSA (test code = ISSA) Director Supply ID - [id number] Lab Interpretation (test Abnormal code = 52488-9) [facility] (BNP)2020-09-26 06:01:00 Test Item Value Reference Range Interpretation Comments BNP (test code = 72559-8) 929 pg/mL 0-100 H ISSA (test code = ISSA) Director Supply ID - [id number] Lab Interpretation (test Abnormal code = 13458-3) [facility] (BNP)2020-09-26 06:01:00 Test Item Value Reference Range Interpretation Comments BNP (test code = 85805-1) 929 pg/mL 0-100 H ISSA (test code = ISSA) Director Supply ID - [id number] Lab Interpretation (test Abnormal code = 76314-4) [facility] Nat[facility] (BNP)2020-09-26 06:01:00 Test Item Value Reference Range Interpretation Comments BNP (test code = 14628-3) 929 pg/mL 0-100 H ISSA (test code = ISSA) Director Supply ID - [id number] Lab Interpretation (test Abnormal code = 67276-6) [facility] (BNP)2020-09-26 06:01:00 Test Item Value Reference Range Interpretation Comments BNP (test code = 69627-7) 929 pg/mL 0-100 H ISSA (test code = ISSA) Director Supply ID - [id number] Lab Interpretation (test Abnormal code = 92820-0) [facility] Nat[facility] (BNP)2020-09-26 06:01:00 Test Item Value Reference Range Interpretation Comments BNP (test code = 83175-1) 929 pg/mL 0-100 H ISSA (test code = ISSA) Director Supply ID - [id number] Lab Interpretation (test Abnormal code = 23178-8) [facility] NATRIURETIC FACTOR (BNP)2020-09-26 06:01:00 Test Item Value Reference Range Interpretation Comments B-TYPE NATRIURETIC PEPTIDE (BEAKER) 929 pg/mL 0-100 H (test code = 700) Director Supply ID - [id number] W/PLT COUNT & AUTO [id number] 05:44:00 Test Item Value Reference Range Interpretation [...] PERCENT (BEAKER) (test code = 2801) POCT-GLUCOSE [id number] 21:22:00 Test Item Value Reference Range Interpretation Comments POC-GLUCOSE METER 162 mg/dL 70-110 H : TESTED A T [facility] [address] (BEAKER) (test code [facility], = 1538) [place] [address]: Director Supply/Techni cornelia ID = [id number] for Saumya Harrisona POCT-GLUCOSE [id number] 16:27:00 Test Item Value Reference Range Interpretation Comments POC-GLUCOSE METER 151 mg/dL 70-110 H : TESTED A T [facility] [address] (BEAKER) (test code [facility], = 1538) [place] [address]: Director Supply/Techni cornelia ID = [id number] for Jovanny Gambler POCT-GLUCOSE [id number] 11:32:00 Test Item Value Reference Range Interpretation Comments POC-GLUCOSE METER 104 mg/dL 70-110 : TESTED A T [facility] [address] (BEAKER) (test code [address], = 1538) [facility] [address]: Director Supply/Techni cornelia ID = [id number] for Zoltan Gamble POCT-GLUCOSE [id number] 06:17:00 Test Item Value Reference Range Interpretation Comments POC-GLUCOSE METER 112 mg/dL 70-110 H : TESTED A T [facility] [address] (BEAKER) (test code [address], = 1538) [place] [address]: Director Supply/Techni cornelia ID = [id number] for Lani Kat [id number] 05:39:00 Test Item Value Reference Range Interpretation Comments MAGNESIUM (BEAKER) (test code = 1.9 mg/dL 1.5-3.0 627) Director Supply ID - LITOOperator ID - LITOOperator ID - LITOOperator ID - LITOBASIC METABOLIC [id number] 05:38:00 Test Item Value Reference Range Interpretation [...] S NOT APPLICABLE FOR DIALYSIS PATIEN TS. Director Supply ID - LITOOperator ID - LITOOperator ID - LITOOperator ID - LITOOperator ID - LITOOperator ID - LITOOperator ID - LITOOperator ID - LITOOperator ID - LITOOperator ID - LITOCBC W/PLT COUNT & AUTO [id number] 05:20:00 Test Item Value Reference Range Interpretation [...] PERCENT (BEAKER) (test code = 2801) POCT-GLUCOSE [id number] 20:48:00 Test Item Value Reference Range Interpretation Comments POC-GLUCOSE METER 167 mg/dL 70-110 H : TESTED A T [facility] [address] (BEAKER) (test code [address], = 1538) [place] [address]: Director Supply/Techni cornelia ID = [id number] for Lani Kat POCT-GLUCOSE [id number] 17:48:00 Test Item Value Reference Range Interpretation Comments POC-GLUCOSE METER 260 mg/dL 70-110 H : TESTED A T [facility] [address] (BEAKER) (test code [address], = 1538) [place] [address]: Director Supply/Techni cornelia ID = [id number] for Heidy Martin ARTERIAL DOPPLER LEGS, [id number] 13:42:00Reason for exam:- >osteomyelitis [facility] : 1975 Sex: MFINAL [...] Ortiz Verified Date/Time: 09/24/2020 13:42:37 Reading Location: [facility] Radiology Reading Room Arterial Doppler Legs [id number] 13:42:00Interface, External Ris In - 09/24/2020 1:44 [...] Ortiz Verified Date/Time: 09/24/2020 13:42:37 Reading Location: [facility] Radiology [facility] [id number] 13:42:00Interface, External Ris In - 09/24/2020 1:44 [...] Ortiz Verified Date/Time: 09/24/2020 13:42:37 Reading Location: [facility] Radiology Reading [facility] Leg[facility] Aevppzwvb7948-54-79 13:42:00Interface, External Ris In - 09/24/2020 1:44 [...] Ortiz Verified Date/Time: 09/24/2020 13:42:37 Reading Location: [facility] Radiology Reading [facility] Blzkfrtpb3033-39-42 13:42:00Interface, External Ris In - 09/24/2020 1:44 [...] MDReport Verified Date/Time: 09/24/2020 13:42:37 Reading Location: [facility] Radiology Reading Room [facility] CenterUrea Nitrogen, random [id number] 10:42:00 Test Item Value Reference Range Interpretation Comments Urea Nitrogen, Ur 236 mg/dL (test code = 3095-7) ISSA (test code = Reference Range: No ISSA) NormalsOperator ID - ALEXY [facility], random [id number] 10:42:00 Test Item Value Reference Range Interpretation Comments Urea Nitrogen, Ur 236 mg/dL (test code = 3095-7) ISSA (test code = Reference Range: No ISSA) NormalsOperator ID - ALEXY [facility] Center[facility] Nitrogen, random [id number] 10:42:00 Test Item Value Reference Range Interpretation Comments Urea Nitrogen, Ur 236 mg/dL (test code = 3095-7) ISSA (test code = Reference Range: No ISSA) NormalsOperator ID - [facility], random [id number] 10:42:00 Test Item Value Reference Range Interpretation Comments Urea Nitrogen, Ur 236 mg/dL (test code = 3095-7) ISSA (test code = Reference Range: No ISSA) NormalsOperator ID - [facility] CenterU[facility] Nitrogen, random [id number] 10:42:00 Test Item Value Reference Range Interpretation Comments Urea Nitrogen, Ur 236 mg/dL (test code = 3095-7) ISSA (test code = Reference Range: No ISSA) NormalsOperator [facility], random [id number] 10:42:00 Test Item Value Reference Range Interpretation Comments Urea Nitrogen, Ur 236 mg/dL (test code = 3095-7) ISSA (test code = Reference Range: No ISSA) NormalsOperator [facility] CenterUrea Nitrogen, random [id number] 10:42:00 Test Item Value Reference Range Interpretation Comments Urea Nitrogen, Ur 236 mg/dL (test code = 3095-7) ISSA (test code = Reference Range: No ISSA) NormalsOperator [facility] CenterUREA NITROGEN, RANDOM [id number] 10:42:00 Test Item Value Reference Range Interpretation Comments UREA NITROGEN URINE (BEAKER) (test 236 mg/dL code = 538) Reference Range: No NormalsOperator [facility]ITALitamin D, 20-[id number] 10:38:00 Test Item Value Reference Range Interpretation Comments Vitamin D 25-Hydroxy 7.3 ng/mL 6.6-49.9 (test code = 2764) ISSA (test code = ISSA) Effective 01/06/2017: Reference Range ChangeNew: 6.6-49.9 ng/mL Previous: 13.0-47.8 ng/mL Recommended Vitamin D Target Range: 30.0-40.0 ng/mLOperO[facility] Lab Interpretation (test Normal code = 10216-9) [facility] HospitalV[facility], 56-Iyjodam4527-76-29 10:38:00 Test Item Value Reference Range Interpretation Comments Vitamin D 25-Hydroxy 7.3 ng/mL 6.6-49.9 (test code = 2764) ISSA (test code = ISSA) Effective 01/06/2017: Reference Range ChangeNew: 6.6-49.9 ng/mL Previous: 13.0-47.8 ng/mL Recommended Vitamin D Target Range: 30.0-40.0 ng/mLOperator ID - ALEXY C Lab Interpretation (test Normal code = 11198-9) [facility], 03-[id number] 10:38:00 Test Item Value Reference Range Interpretation Comments Vitamin D 25-Hydroxy 7.3 ng/mL 6.6-49.9 (test code = 2764) ISSA (test code = ISSA) Effective 01/06/2017: Reference Range ChangeNew: 6.6-49.9 ng/mL Previous: 13.0-47.8 ng/mL Recommended Vitamin D Target Range: 30.0-40.0 ng/mLOperator ID - ALEXY C Lab Interpretation (test Normal code = 31917-6) [facility], 57-Oukwovn4635-54-29 10:38:00 Test Item Value Reference Range Interpretation Comments Vitamin D 25-Hydroxy 7.3 ng/mL 6.6-49.9 (test code = 2764) ISSA (test code = ISSA) Effective 01/06/2017: Reference Range ChangeNew: 6.6-49.9 ng/mL Previous: 13.0-47.8 ng/mL Recommended Vitamin D Target Range: 30.0-40.0 ng/mLOperator ID - ALEXY C Lab Interpretation (test Normal code = 53802-0) [facility], 23-[id number] 10:38:00 Test Item Value Reference Range Interpretation Comments Vitamin D 25-Hydroxy 7.3 ng/mL 6.6-49.9 (test code = 2764) ISSA (test code = ISSA) Effective 01/06/2017: Reference Range ChangeNew: 6.6-49.9 ng/mL Previous: 13.0-47.8 ng/mL Recommended Vitamin D Target Range: 30.0-40.0 ng/mLOperator ID - ALEXY C Lab Interpretation (test Normal code = 06742-2) [facility], 20-[id number] 10:38:00 Test Item Value Reference Range Interpretation Comments Vitamin D 25-Hydroxy 7.3 ng/mL 6.6-49.9 (test code = 2764) ISSA (test code = ISSA) Effective 01/06/2017: Reference Range ChangeNew: 6.6-49.9 ng/mL Previous: 13.0-47.8 ng/mL Recommended Vitamin D Target Range: 30.0-40.0 ng/mLOperator ID ALEXY C Lab Interpretation (test Normal code = 94994-1) [facility], 36-[id number] 10:38:00 Test Item Value Reference Range Interpretation Comments Vitamin D 25-Hydroxy 7.3 ng/mL 6.6-49.9 (test code = 2764) ISSA (test code = ISSA) Effective 01/06/2017: Reference Range ChangeNew: 6.6-49.9 ng/mL Previous: 13.0-47.8 ng/mL Recommended Vitamin D Target Range: 30.0-40.0 ng/mLOperator [facility] ALEXY C Lab Interpretation (test Normal code = 24300-8) [facility] HospitalVITAMIN D, 69-[id number] 10:38:00 Test Item Value Reference Range Interpretation Comments VITAMIN D 25-OH (BEAKER) (test code 7.3 ng/mL 6.6-49.9 = 2764) Effective 01/06/2017: Reference Range ChangeNew: 6.6-49.9 ng/mL Previous: 13.0-47.8 ng/mLRecommended Vitamin D Target Range: 30.0-40.0 ng/mLOperator Mar [facility], [id number] 07:31:00 Test Item Value Reference Range Interpretation Comments PTH (test code = 2731-8) 271.6 pg/mL 15-90 H ISSA (test code = ISSA) Director Supply ID - [id number] Lab Interpretation (test Abnormal code = 11337-8) [facility], [id number] 07:31:00 Test Item Value Reference Range Interpretation Comments PTH (test code = 2731-8) 271.6 pg/mL 15-90 H ISSA (test code = ISSA) Director Supply ID - [id number] Lab Interpretation (test Abnormal code = 99384-0) [facility], [id number] 07:31:00 Test Item Value Reference Range Interpretation Comments PTH (test code = 2731-8) 271.6 pg/mL 15-90 H ISSA (test code = ISSA) Director Supply ID - [id number] Lab Interpretation (test Abnormal code = 15050-6) [facility], [id number] 07:31:00 Test Item Value Reference Range Interpretation Comments PTH (test code = 2731-8) 271.6 pg/mL 15-90 H ISSA (test code = ISSA) Director Supply ID - [id number] Lab Interpretation (test Abnormal code = 22277-3) [facility], [id number] 07:31:00 Test Item Value Reference Range Interpretation Comments PTH (test code = 2731-8) 271.6 pg/mL 15.0-90.0 H ISSA (test code = ISSA) Director Supply ID - [id number] Lab Interpretation (test Abnormal code = 65481-5) [facility], [id number] 07:31:00 Test Item Value Reference Range Interpretation Comments PTH (test code = 2731-8) 271.6 pg/mL 15.0-90.0 H ISSA (test code = ISSA) Director Supply ID - [id number] Lab Interpretation (test Abnormal code = 16054-9) [facility], [id number] 07:31:00 Test Item Value Reference Range Interpretation Comments PTH (test code = 2731-8) 271.6 pg/mL 15.0-90.0 H ISSA (test code = ISSA) Director Supply ID - [id number] Lab Interpretation (test Abnormal code = 71062-5) [facility], [id number] 07:31:00 Test Item Value Reference Range Interpretation Comments PARATHYROID HORMONE INTACT 271.6 pg/mL 15.0-90.0 H (BEAKER) (test code = 577) Director Supply ID - [id number] 06:45:00 Test Item Value Reference Range Interpretation Comments POC-GLUCOSE METER 122 mg/dL 70-110 H : Notified RN/MD: TESTED (BEAKER) (test code AT [address] = 1538) [facility] [address]: Director Supply/Techni cornelia ID = [id number] for Coco Griffin Iron, TIBC, % sat. (without ferritin)2020-09-24 06:41:00 Test Item Value Reference Range Interpretation Comments Iron (test code = 43.0 ug/dL 45-170 L 2498-4) TIBC (test code = 189 ug/dL 250-550 L 2500-7) Iron % Saturation (test 23 % 20-55 code = 2502-3) ISSA (test code = ISSA) Director Supply ID - LITOOperator ID - ARCHIE Lab Interpretation (test Abnormal code = 69619-7) [facility], TIBC, % sat. (without ferritin)2020-09-24 06:41:00 Test Item Value Reference Range Interpretation Comments Iron (test code = 43.0 ug/dL 45-170 L 2498-4) TIBC (test code = 189 ug/dL 250-550 L 2500-7) Iron % Saturation (test 23 % 20-55 code = 2502-3) ISSA (test code = ISSA) Director Supply ID - LITOOperator ID - ARCHIE Lab Interpretation (test Abnormal code = 00241-3) [facility], TIBC, % sat. (without ferritin)2020-09-24 06:41:00 Test Item Value Reference Range Interpretation Comments Iron (test code = 43.0 ug/dL 45-170 L 2498-4) TIBC (test code = 189 ug/dL 250-550 L 2500-7) Iron % Saturation (test 23 % 20-55 code = 2502-3) ISSA (test code = ISSA) Director Supply ID - LITOOperator ID - ARCHIE Lab Interpretation (test Abnormal code = 66898-0) [facility], TIBC, % sat. (without ferritin)2020-09-24 06:41:00 Test Item Value Reference Range Interpretation Comments Iron (test code = 43.0 ug/dL 45-170 L 2498-4) TIBC (test code = 189 ug/dL 250-550 L 2500-7) Iron % Saturation (test 23 % 20-55 code = 2502-3) ISSA (test code = ISSA) Director Supply ID - LITOOperator ID - ARCHIE Lab Interpretation (test Abnormal code = 18833-9) [facility] (without ferritin)2020-09-24 06:41:00 Test Item Value Reference Range Interpretation Comments Iron (test code = 43.0 ug/dL 45.0-170.0 L 2498-4) TIBC (test code = 189 ug/dL 250-550 L 2500-7) Iron % Saturation (test 23 % 20-55 code = 2502-3) ISSA (test code = ISSA) Director Supply ID - LITOOperator ID - ARCHIE Lab Interpretation (test Abnormal code = 12900-7) [facility], TIBC, % sat. (without ferritin)2020-09-24 06:41:00 Test Item Value Reference Range Interpretation Comments Iron (test code = 43.0 ug/dL 45.0-170.0 L 2498-4) TIBC (test code = 189 ug/dL 250-550 L 2500-7) Iron % Saturation (test 23 % 20-55 code = 2502-3) ISSA (test code = ISSA) Director Supply ID - LITOOperator ID - ARCHIE Lab Interpretation (test Abnormal code = 09646-6) [facility], TIBC, % sat. (without ferritin)2020-09-24 06:41:00 Test Item Value Reference Range Interpretation Comments Iron (test code = 43.0 ug/dL 45.0-170.0 L 2498-4) TIBC (test code = 189 ug/dL 250-550 L 2500-7) Iron % Saturation (test 23 % 20-55 code = 2502-3) ISSA (test code = ISSA) Director Supply ID - LITOOperator ID - ARCHIE Lab Interpretation (test Abnormal code = 34454-9) [facility], TIBC, % SAT. (WITHOUT FERRITIN)2020-09-24 06:41:00 Test Item Value Reference Range Interpretation Comments IRON (BEAKER) (test code = 547) 43.0 ug/dL 45.0-170.0 L TOTAL IRON BINDING CAPACITY 189 ug/dL 250-550 L (BEAKER) (test code = 769) IRON % SATURATION (2) (BEAKER) 23 % 20-55 (test code = 2590) Director Supply ID - LITOOperator ID - [id number] 06:23:00 Test Item Value Reference Range Interpretation Comments Ferritin (test code = 190.40 ng/mL 22-322 2276-4) ISSA (test code = ISSA) Director Supply ID - ARCHIE Lab Interpretation (test Normal code = 70154-5) [facility] Test Item Value Reference Range Interpretation Comments Ferritin (test code = 190.40 ng/mL 22-322 2276-4) ISSA (test code = ISSA) Director Supply ID - ARCHIE Lab Interpretation (test Normal code = 61795-6) [facility] 06:23:00 Test Item Value Reference Range Interpretation Comments Ferritin (test code = 190.40 ng/mL 22-322 2276-4) ISSA (test code = ISSA) Director Supply ID - ARCHIE Lab Interpretation (test Normal code = 12934-0) [facility] 06:23:00 Test Item Value Reference Range Interpretation Comments Ferritin (test code = 190.40 ng/mL 22-322 2276-4) ISSA (test code = ISSA) Director Supply ID - ARCHIE Lab Interpretation (test Normal code = 31714-8) [facility] 06:23:00 Test Item Value Reference Range Interpretation Comments Ferritin (test code = 190.40 ng/mL 22.00-322.00 2276-4) ISSA (test code = ISSA) Director Supply ID - ARCHIE Lab Interpretation (test Normal code = 25215-5) [facility] 06:23:00 Test Item Value Reference Range Interpretation Comments Ferritin (test code = 190.40 ng/mL 22.00-322.00 2276-4) ISSA (test code = ISSA) Director Supply ID - ARCHIE Lab Interpretation (test Normal code = 84669-6) [facility] 06:23:00 Test Item Value Reference Range Interpretation Comments Ferritin (test code = 190.40 ng/mL 22.00-322.00 2276-4) ISSA (test code = ISSA) Director Supply ID - ARCHIE Lab Interpretation (test Normal code = 52686-5) [facility] 06:23:00 Test Item Value Reference Range Interpretation Comments FERRITIN (BEAKER) (test code = 190.40 ng/mL 22.00-322.00 361) Director Supply ID - LITOBASIC METABOLIC [id number] 06:18:00 Test Item Value Reference Range Interpretation [...] S NOT APPLICABLE FOR DIALYSIS PATIEN TS. Director Supply ID - LITOOperator ID - LITOOperator ID - LITOOperator ID - LITOOperator ID - LITOOperator ID - LITOOperator ID - LITOOperator ID - LITOOperator ID - LITOOperator ID - [id number] 06:04:00 Test Item Value Reference Range Interpretation Comments MAGNESIUM (BEAKER) (test code = 1.6 mg/dL 1.5-3.0 627) Director Supply ID - LITOOperator ID - LITOOperator ID - LITOOperator ID - [id number] W/PLT COUNT & AUTO [id number] 06:03:00 Test Item Value Reference Range Interpretation [...] PERCENT (BEAKER) (test code = 2801) POCT-GLUCOSE [id number] 21:37:00 Test Item Value Reference Range Interpretation Comments POC-GLUCOSE METER 185 mg/dL 70-110 H : TESTED A T [facility] 13[address] (BEAKER) (test code [facility] [address], = 1538) [facility] [address]: Director Supply/Techni cornelia ID = [id number] for Rachel Branham U/S, RENAL, [id number] 21:19:00Reason for exam:->Acute renal [facility] 1975 Sex: [...] postvoid residual. Signed: Moose Peterseneport Verified Date/Time: 121:19:36 US renal [id number] 21:19:00Interface, External Ris In - 09/23/2020 9:21 [...] Signed: Teo Petersen Verified Date/Time: 09/23/2020 21:19:36 [facility] 2020-[facility]-23 21:19:00Interface, External Ris In [...] postvoid residual. Signed: Moose Petersen Verified Date/Time: 09/23/2020 21:19:36 [facility] renal [id number] 21:19:00Interface, External Ris In - 09/23/2020 9:21 [...] urinary bladder postvoid residual. Signed: Moose Petersen [facility] Verified Date/Time: 09/23/2020 21:19:36 [facility] renal [id number] 21:19:00Interface, External Ris In - 09/23/2020 9:21 [...] Moose Petersen MDReport Verified Date/Time: 09/23/2020 21:19:36 [facility] Protein, random [id number] 19:02:00 Test Item Value Reference Range Interpretation Comments Protein, Urine (test code 212 mg/dL 0-14 H = 2888-6) ISSA (test code = ISSA) Director Supply ID - [id number] ID - [id number] Lab Interpretation (test Abnormal code = 97146-0) [facility] [id number] 19:02:00 Test Item Value Reference Range Interpretation Comments Protein, Urine (test code 212 mg/dL 0-14 H = 2888-6) ISSA (test code = ISSA) Director Supply ID - [id number] ID - [id number] Lab Interpretation (test Abnormal code = 68167-2) [facility] random [id number] 19:02:00 Test Item Value Reference Range Interpretation Comments Protein, Urine (test code 212 mg/dL 0-14 H = 2888-6) ISSA (test code = ISSA) Director Supply ID - [id number] ID - [id number] Lab Interpretation (test Abnormal code = 88387-6) [facility] [id number] 19:02:00 Test Item Value Reference Range Interpretation Comments Protein, Urine (test code 212 mg/dL 0-14 H = 2888-6) ISSA (test code = ISSA) Director Supply ID - [id number] ID - [id number] Lab Interpretation (test Abnormal code = 08030-9) [facility] random [id number] 19:02:00 Test Item Value Reference Range Interpretation Comments Protein, Urine (test code 212 mg/dL 0-14 H = 2888-6) ISSA (test code = ISSA) Director Supply ID - [id number] ID - [id number] Lab Interpretation (test Abnormal code = 59989-0) [facility] random [id number] 19:02:00 Test Item Value Reference Range Interpretation Comments Protein, Urine (test code 212 mg/dL 0-14 H = 2888-6) ISSA (test code = ISSA) Director Supply ID - [id number] ID - [id number] Lab Interpretation (test Abnormal code = 10470-6) [facility] [id number] 19:02:00 Test Item Value Reference Range Interpretation Comments Protein, Urine (test code 212 mg/dL 0-14 H = 2888-6) ISSA (test code = ISSA) Director Supply ID - [id number] ID - [id number] Lab Interpretation (test Abnormal code = 67207-9) [facility]PROTE[facility] RANDOM [id number] 19:02:00 Test Item Value Reference Range Interpretation Comments PROTEIN, URINE (BEAKER) (test code 212 mg/dL 0-14 H = 1569) Director Supply ID - [id number] ID - [id number], random [id number] 18:49:00 Test Item Value Reference Range Interpretation Comments Creatinine, Ur 23.8 mg/dL (test code = 2161-8) ISSA (test code = Reference Range: No ISSA) NormalsOperator ID - [id number] [facility]Creatinine, random [id number] 18:49:00 Test Item Value Reference Range Interpretation Comments Creatinine, Ur 23.8 mg/dL (test code = 2161-8) ISSA (test code = Reference Range: No ISSA) NormalsOperator ID - [id number] [facility]Creat[facility], random [id number] 18:49:00 Test Item Value Reference Range Interpretation Comments Creatinine, Ur 23.8 mg/dL (test code = 2161-8) ISSA (test code = Reference Range: No ISSA) NormalsOperator ID - [id number] [facility]Creat[facility], random [id number] 18:49:00 Test Item Value Reference Range Interpretation Comments Creatinine, Ur 23.8 mg/dL (test code = 2161-8) ISSA (test code = Reference Range: No ISSA) NormalsOperator ID - [id number] [facility], random [id number] 18:49:00 Test Item Value Reference Range Interpretation Comments Creatinine, Ur 23.8 mg/dL (test code = 2161-8) ISSA (test code = Reference Range: No ISSA) NormalsOperator ID - [id number] [facility], random [id number] 18:49:00 Test Item Value Reference Range Interpretation Comments Creatinine, Ur 23.8 mg/dL (test code = 2161-8) ISSA (test code = Reference Range: No ISSA) NormalsOperator ID - [id number] [facility]Creat[facility], random [id number] 18:49:00 Test Item Value Reference Range Interpretation Comments Creatinine, Ur 23.8 mg/dL (test code = 2161-8) ISSA (test code = Reference Range: No ISSA) NormalsOperator ID - [id number] [facility] HospitalCREATININE, RANDOM [id number] 18:49:00 Test Item Value Reference Range Interpretation Comments CREATININE URINE (BEAKER) (test 23.8 mg/dL code = 375) Reference Range: No NormalsOperator ID - [id number], random urine 2020-09-23 18:43:00 Test Item Value Reference Range Interpretation Comments ChlorideUr (test 117 meq/L code = 33205-6) ISSA (test code = Reference Range: No ISSA) NormalsOperator ID - [id number] [facility]Potassium, random [id number] 18:43:00 Test Item Value Reference Range Interpretation Comments Potassium Urine 21.5 meq/L (test code = 2828-2) ISSA (test code = Reference Range: No ISSA) NormalsOperator ID [id number] [facility] [id number] 18:43:00 Test Item Value Reference Range Interpretation Comments Sodium Urine (test 113 meq/L code = 2955-3) ISSA (test code = Reference Range: No ISSA) NormalsOperator ID - [id number] [facility] HospitalChlor[facility], random [id number] 18:43:00 Test Item Value Reference Range Interpretation Comments ChlorideUr (test 117 meq/L code = 01073-5) ISSA (test code = Reference Range: No ISSA) NormalsOperator ID - [id number] [facility]Potassium, random [id number] 18:43:00 Test Item Value Reference Range Interpretation Comments Potassium Urine 21.5 meq/L (test code = 2828-2) ISSA (test code = Reference Range: No ISSA) NormalsOperator ID - [id number] [facility] [id number] 18:43:00 Test Item Value Reference Range Interpretation Comments Sodium Urine (test 113 meq/L code = 2955-3) ISSA (test code = Reference Range: No ISSA) NormalsOperator ID - [id number] [facility] HospitalChlor[facility], random [id number] 18:43:00 Test Item Value Reference Range Interpretation Comments ChlorideUr (test 117 meq/L code = 28523-8) ISSA (test code = Reference Range: No ISSA) NormalsOperator ID - [id number] [facility]Pot[facility], random [id number] 18:43:00 Test Item Value Reference Range Interpretation Comments Potassium Urine 21.5 meq/L (test code = 2828-2) ISSA (test code = Reference Range: No ISSA) NormalsOperator ID - [id number] [facility], random [id number] 18:43:00 Test Item Value Reference Range Interpretation Comments Sodium Urine (test 113 meq/L code = 2955-3) ISSA (test code = Reference Range: No ISSA) NormalsOperator ID - [id number] [facility]Ch[facility], random [id number] 18:43:00 Test Item Value Reference Range Interpretation Comments ChlorideUr (test 117 meq/L code = 05008-1) ISSA (test code = Reference Range: No ISSA) NormalsOperator ID - [id number] [facility]Potassium, random [id number] 18:43:00 Test Item Value Reference Range Interpretation Comments Potassium Urine 21.5 meq/L (test code = 2828-2) ISSA (test code = Reference Range: No ISSA) NormalsOperator ID - [id number] [facility] random [id number] 18:43:00 Test Item Value Reference Range Interpretation Comments Sodium Urine (test 113 meq/L code = 2955-3) ISSA (test code = Reference Range: No ISSA) NormalsOperator ID - [id number] [facility]Ch[facility], random [id number] 18:43:00 Test Item Value Reference Range Interpretation Comments ChlorideUr (test 117 meq/L code = 46979-3) ISSA (test code = Reference Range: No ISSA) NormalsOperator ID - [id number] [facility]Potassium, random [id number] 18:43:00 Test Item Value Reference Range Interpretation Comments Potassium Urine 21.5 meq/L (test code = 2828-2) ISSA (test code = Reference Range: No ISSA) NormalsOperator ID - [id number] [facility], [facility] [id number] 18:43:00 Test Item Value Reference Range Interpretation Comments Sodium Urine (test 113 meq/L code = 2955-3) ISSA (test code = Reference Range: No ISSA) NormalsOperator ID - [id number] [facility]Ch[facility], random [id number] 18:43:00 Test Item Value Reference Range Interpretation Comments ChlorideUr (test 117 meq/L code = 65322-0) ISSA (test code = Reference Range: No ISSA) NormalsOperator ID - [id number] [facility]Potassium, random [id number] 18:43:00 Test Item Value Reference Range Interpretation Comments Potassium Urine 21.5 meq/L (test code = 2828-2) ISSA (test code = Reference Range: No ISSA) NormalsOperator ID - [id number] [facility], [facility] [id number] 18:43:00 Test Item Value Reference Range Interpretation Comments Sodium Urine (test 113 meq/L code = 2955-3) ISSA (test code = Reference Range: No ISSA) NormalsOperator ID - [id number] [facility]Chlor[facility], random [id number] 18:43:00 Test Item Value Reference Range Interpretation Comments ChlorideUr (test 117 meq/L code = 63396-6) ISSA (test code = Reference Range: No ISSA) NormalsOperator ID - [id number] [facility]Potassium, random [id number] 18:43:00 Test Item Value Reference Range Interpretation Comments Potassium Urine 21.5 meq/L (test code = 2828-2) ISSA (test code = Reference Range: No ISSA) NormalsOperator ID - [id number] [facility], [facility] [id number] 18:43:00 Test Item Value Reference Range Interpretation Comments Sodium Urine (test 113 meq/L code = 2955-3) ISSA (test code = Reference Range: No ISSA) NormalsOperator ID - [id number] [facility] HospitalCHLORIDE, RANDOM [id number] 18:43:00 Test Item Value Reference Range Interpretation Comments CHLORIDE URINE (BEAKER) (test code 117 meq/L = 682) Reference Range: No NormalsOperator ID - [id number], RANDOM URINE 2020-09-23 18:43:00 Test Item Value Reference Range Interpretation Comments POTASSIUM URINE (BEAKER) (test 21.5 meq/L code = 195) Reference Range: No NormalsOperator ID - [id number], RANDOM [id number] 18:43:00 Test Item Value Reference Range Interpretation Comments SODIUM URINE (BEAKER) (test code = 113 meq/L 243) Reference Range: No NormalsOperator ID - [id number] w/Microscopic + Reflex to [id number] 17:44:00 Test Item Value Reference Range Interpretation Comments Color, UA (test code = Yellow 5778-6) Clarity, UA (test code = Clear 5767-9) Specific [place], UA 1.020 1.001-1.035 (test code = 5811-5) pH, UA (test code = 7.0 5.0-8.0 5803-2) Protein, UA (test code = 100 mg/dL Negative A 08032-3) Glucose, UA (test code = 100 mg/dL Negative A 365) Ketones, UA (test code = Negative Negative 2514-8) Bilirubin, UA (test code Negative Negative = 39735-7) Blood, UA (test code = Trace Negative A 68477-6) Nitrite, UA (test code = Negative Negative 5802-4) Leukocytes, UA (test Negative Negative code = 5799-2) Urobilinogen, UA (test 0.2 mg/dL 0.2-1 code = 40378-3) Bacteria, UA (test code None Seen = 48843-7) RBC, UA (test code = <5 See_Comment [Autom ated message] 799-7) The system zuuka! generated this result transmit josé luis reference range : /HPF. The refer ence range was not u sed to interpret th is result as normal/abnormal . WBC, UA (test code = None Seen See_Comment [Autom ated message] 12109-5) The system zuuka! generated this result transmit josé luis reference range : /HPF. The refer ence range was not u sed to interpret th is result as normal/abnormal . SQUAMOUS EPITHELIAL <5 See_Comment [Automa josé luis message] (test code = 33692-9) The sy stem which generated this result transmit josé luis reference range : /HPF. The refer ence range was not u sed to interpret th is result as normal/abnormal . Specimen Source (test code = 2795) Lab Interpretation (test Abnormal code = 30925-9) [facility]/Microscopic + Reflex to Culture 2020-09-23 17:44:00 Test Item Value Reference Range Interpretation Comments Color, UA (test code = Yellow 5778-6) Clarity, UA (test code = Clear 5767-9) Specific [place], UA 1.020 1.001-1.035 (test code = 5811-5) pH, UA (test code = 7.0 5.0-8.0 5803-2) Protein, UA (test code = 100 mg/dL Negative A 23870-5) Glucose, UA (test code = 100 mg/dL Negative A 365) Ketones, UA (test code = Negative Negative 2514-8) Bilirubin, UA (test code Negative Negative = 92089-4) Blood, UA (test code = Trace Negative A 81067-6) Nitrite, UA (test code = Negative Negative 5802-4) Leukocytes, UA (test Negative Negative code = 5799-2) Urobilinogen, UA (test 0.2 mg/dL 0.2-1 code = 46974-1) Bacteria, UA (test code None Seen = 97337-7) RBC, UA (test code = <5 See_Comment [Autom ated message] 799-7) The system zuuka! generated this result transmit josé luis reference range : /HPF. The refer ence range was not u sed to interpret th is result as normal/abnormal . WBC, UA (test code = None Seen See_Comment [Autom ated message] 06684-6) The system zuuka! generated this result transmit josé luis reference range : /HPF. The refer ence range was not u sed to interpret th is result as normal/abnormal . SQUAMOUS EPITHELIAL <5 See_Comment [Automa josé luis message] (test code = 59511-4) The sy stem which generated this result transmit josé luis reference range : /HPF. The refer ence range was not u sed to interpret th is result as normal/abnormal . Specimen Source (test code = 2795) Lab Interpretation (test Abnormal code = 17319-2) [facility]/Microscopic + Reflex to Culture 2020-09-23 17:44:00 Test Item Value Reference Range Interpretation Comments Color, UA (test code = Yellow 5778-6) Clarity, UA (test code = Clear 5767-9) Specific [place], UA 1.020 1.001-1.035 (test code = 5811-5) pH, UA (test code = 7.0 5.0-8.0 5803-2) Protein, UA (test code = 100 mg/dL Negative A 13814-6) Glucose, UA (test code = 100 mg/dL Negative A 365) Ketones, UA (test code = Negative Negative 2514-8) Bilirubin, UA (test code Negative Negative = 50388-6) Blood, UA (test code = Trace Negative A 29270-7) Nitrite, UA (test code = Negative Negative 5802-4) Leukocytes, UA (test Negative Negative code = 5799-2) Urobilinogen, UA (test 0.2 mg/dL 0.2-1 code = 66575-6) Bacteria, UA (test code None Seen = 19244-0) RBC, UA (test code = <5 See_Comment [Autom ated message] 799-7) The system zuuka! generated this result transmit josé luis reference range : /HPF. The refer ence range was not u sed to interpret th is result as normal/abnormal . WBC, UA (test code = None Seen See_Comment [Autom ated message] 04593-5) The system zuuka! generated this result transmit josé luis reference range : /HPF. The refer ence range was not u sed to interpret th is result as normal/abnormal . SQUAMOUS EPITHELIAL <5 See_Comment [Automa josé luis message] (test code = 21047-4) The sy stem which generated this result transmit josé luis reference range : /HPF. The refer ence range was not u sed to interpret th is result as normal/abnormal . Specimen Source (test code = 2795) Lab Interpretation (test Abnormal code = 87017-4) [facility] Culture 2020-09-23 17:44:00 Test Item Value Reference Range Interpretation Comments Color, UA (test code = Yellow 5778-6) Clarity, UA (test code = Clear 5767-9) Specific Arverne, UA 1.020 1.001-1.035 (test code = 5811-5) pH, UA (test code = 7.0 5.0-8.0 5803-2) Protein, UA (test code = 100 mg/dL Negative A 34655-8) Glucose, UA (test code = 100 mg/dL Negative A 365) Ketones, UA (test code = Negative Negative 2514-8) Bilirubin, UA (test code Negative Negative = 44479-6) Blood, UA (test code = Trace Negative A 58668-5) Nitrite, UA (test code = Negative Negative 5802-4) Leukocytes, UA (test Negative Negative code = 5799-2) Urobilinogen, UA (test 0.2 mg/dL 0.2-1 code = 31347-8) Bacteria, UA (test code None Seen = 39719-0) RBC, UA (test code = <5 See_Comment [Autom ated message] 799-7) The system zuuka! generated this result transmit josé luis reference range : /HPF. The refer ence range was not u sed to interpret th is result as normal/abnormal . WBC, UA (test code = None Seen See_Comment [Autom ated message] 80628-1) The system zuuka! generated this result transmit josé luis reference range : /HPF. The refer ence range was not u sed to interpret th is result as normal/abnormal . SQUAMOUS EPITHELIAL <5 See_Comment [Automa josé luis message] (test code = 15660-4) The sy stem which generated this result transmit josé luis reference range : /HPF. The refer ence range was not u sed to interpret th is result as normal/abnormal . Specimen Source (test code = 2795) Lab Interpretation (test Abnormal code = 11508-2) [facility] Ref[facility] Culture 2020-09-23 17:44:00 Test Item Value Reference Range Interpretation Comments Color, UA (test code = Yellow 5778-6) Clarity, UA (test code = Clear 5767-9) Specific Arverne, UA 1.020 1.001-1.035 (test code = 5811-5) pH, UA (test code = 7.0 5.0-8.0 5803-2) Protein, UA (test code = 100 mg/dL Negative A 51633-7) Glucose, UA (test code = 100 mg/dL Negative A 365) Ketones, UA (test code = Negative Negative 2514-8) Bilirubin, UA (test code Negative Negative = 40796-1) Blood, UA (test code = Trace Negative A 41242-5) Nitrite, UA (test code = Negative Negative 5802-4) Leukocytes, UA (test Negative Negative code = 5799-2) Urobilinogen, UA (test 0.2 mg/dL 0.2-1.0 code = 55649-8) Bacteria, UA (test code None Seen = 41548-7) RBC, UA (test code = <5 See_Comment [Autom ated message] 799-7) The system zuuka! generated this result transmit josé luis reference range : /HPF. The refer ence range was not u sed to interpret th is result as normal/abnormal . WBC, UA (test code = None Seen See_Comment [Autom ated message] 71166-2) The system zuuka! generated this result transmit josé luis reference range : /HPF. The refer ence range was not u sed to interpret th is result as normal/abnormal . SQUAMOUS EPITHELIAL <5 See_Comment [Automa josé luis message] (test code = 55496-4) The sy stem which generated this result transmit josé luis reference range : /HPF. The refer ence range was not u sed to interpret th is result as normal/abnormal . Specimen Source (test code = 2795) Lab Interpretation (test Abnormal code = 54269-0) [facility] Ref[facility] Culture 2020-09-23 17:44:00 Test Item Value Reference Range Interpretation Comments Color, UA (test code = Yellow 5778-6) Clarity, UA (test code = Clear 5767-9) Specific Arverne, UA 1.020 1.001-1.035 (test code = 5811-5) pH, UA (test code = 7.0 5.0-8.0 5803-2) Protein, UA (test code = 100 mg/dL Negative A 95016-0) Glucose, UA (test code = 100 mg/dL Negative A 365) Ketones, UA (test code = Negative Negative 2514-8) Bilirubin, UA (test code Negative Negative = 69045-4) Blood, UA (test code = Trace Negative A 99013-1) Nitrite, UA (test code = Negative Negative 5802-4) Leukocytes, UA (test Negative Negative code = 5799-2) Urobilinogen, UA (test 0.2 mg/dL 0.2-1.0 code = 77373-1) Bacteria, UA (test code None Seen = 52837-6) RBC, UA (test code = <5 See_Comment [Autom ated message] 799-7) The system zuuka! generated this result transmit josé luis reference range : /HPF. The refer ence range was not u sed to interpret th is result as normal/abnormal . WBC, UA (test code = None Seen See_Comment [Autom ated message] 04883-2) The system zuuka! generated this result transmit josé luis reference range : /HPF. The refer ence range was not u sed to interpret th is result as normal/abnormal . SQUAMOUS EPITHELIAL <5 See_Comment [Automa josé luis message] (test code = 85902-6) The sy stem which generated this result transmit josé luis reference range : /HPF. The refer ence range was not u sed to interpret th is result as normal/abnormal . Specimen Source (test code = 2795) Lab Interpretation (test Abnormal code = 45417-5) [facility] Reflex [facility] Culture 2020-09-23 17:44:00 Test Item Value Reference Range Interpretation Comments Color, UA (test code = Yellow 5778-6) Clarity, UA (test code = Clear 5767-9) Specific Arverne, UA 1.020 1.001-1.035 (test code = 5811-5) pH, UA (test code = 7.0 5.0-8.0 5803-2) Protein, UA (test code = 100 mg/dL Negative A 24565-9) Glucose, UA (test code = 100 mg/dL Negative A 365) Ketones, UA (test code = Negative Negative 2514-8) Bilirubin, UA (test code Negative Negative = 08650-7) Blood, UA (test code = Trace Negative A 64069-8) Nitrite, UA (test code = Negative Negative 5802-4) Leukocytes, UA (test Negative Negative code = 5799-2) Urobilinogen, UA (test 0.2 mg/dL 0.2-1.0 code = 05569-7) Bacteria, UA (test code None Seen = 20349-9) RBC, UA (test code = <5 See_Comment [Autom ated message] 799-7) The system zuuka! generated this result transmit josé luis reference range : /HPF. The refer ence range was not u sed to interpret th is result as normal/abnormal . WBC, UA (test code = None Seen See_Comment [Autom ated message] 47755-6) The system zuuka! generated this result transmit josé luis reference range : /HPF. The refer ence range was not u sed to interpret th is result as normal/abnormal . SQUAMOUS EPITHELIAL <5 See_Comment [Automa josé luis message] (test code = 27874-8) The sy stem which generated this result transmit josé luis reference range : /HPF. The refer ence range was not u sed to interpret th is result as normal/abnormal . Specimen Source (test code = 2795) Lab Interpretation (test Abnormal code = 01597-4) [facility]FLEX URINE [id number] 17:44:00 Test Item Value Reference Range Interpretation [...] 1663) SOURCE(BEAKER) (test code = 2795) POCT-GLUCOSE [id number] 16:33:00 Test Item Value Reference Range Interpretation Comments POC-GLUCOSE METER 232 mg/dL 70-110 H : TESTED A T [facility] 1317 (BEAKER) (test code [facility] [place] [address], = [address]) [facility] 77 478: Director Supply/Techni cornelia ID = [id number] for Mily Coy 2D Echo W/Doppler(CW/PW/Color)2020-09-23 14:27:41Ejection FractionSLEH ECHO HEARTLAB MKCKESSON CPACSInterface, External Ris In - 09/23/2020 2:27 PM C DTTransthoracic Echocardiography Report (TTE) Demographics Patient Name FRANDY FORD Date of Study 09/23/2020 MERRITT Gender Male Visit Number [id number] Race Room Number 428 Number Date of 1975 Referring Physician 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 Procedure [...] Peak Gradient: 2.05 mmHg Estimated PASP: 47.75 mmHg[facility]2D [facility] W/Doppler(CW/PW/Color)2020-09-23 14:27:41Ejection FractionSLEH ECHO HEARTLAB [facility]2D Echo W/Doppler(CW/PW/Color)2020-09-23 14:27:41Ejection FractionSLEH ECHO [facility]ARTLAB [facility]2D Echo W/Doppler(CW/PW/Color) 2020-09-23 14:27:41Ejection [facility]ractionSLE [facility]CHO [facility] FlorencePOCT-GLUCOSE [id number] 11:54:00 Test Item Value Reference Range Interpretation Comments POC-GLUCOSE METER 133 mg/dL 70-110 H : TESTED A [facility] 131 ([place]) (test code [facility] [address], = [address]) [facility] 77 478: Director Supply/Techni cornelia ID = [id number] for Mily Coy RAD, FOOT, MIN 3 VIEWS, [id number] 08:48:00Reason for exam:->foot [facility] : 1975 Sex: MFINAL [...] LacyMDReport Verified Date/Time: 09/23/2020 08:48:33 Reading Location: [facility] Radiology Reading Room POCT-GLUCOSE METER 2020-09-23 08:11:00 Test Item Value Reference Range Interpretation Comments POC-GLUCOSE METER 91 mg/dL 70-110 : TESTED A T [facility] 13[address] (BEAKER) (test code = [address], [address]) [facility] 77 478: Director Supply/Techni cornelia ID = [id number] for Mily Coy [id number] 08:04:00 Test Item Value Reference Range Interpretation Comments Phosphorus (test code = 3.5 mg/dL 2.5-4.5 2777-1) ISSA (test code = ISSA) Director Supply ID - [id number] Lab Interpretation (test Normal code = 06101-0) [facility] 08:04:00 Test Item Value Reference Range Interpretation Comments Phosphorus (test code = 3.5 mg/dL 2.5-4.5 2777-1) ISSA (test code = ISSA) Director Supply ID - [id number] Lab Interpretation (test Normal code = 98815-6) [facility]21-[facility] 08:04:00 Test Item Value Reference Range Interpretation Comments Phosphorus (test code = 3.5 mg/dL 2.5-4.5 2777-1) ISSA (test code = ISSA) Director Supply ID - [id number] Lab Interpretation (test Normal code = 84797-4) [facility]21-[facility]28 08:04:00 Test Item Value Reference Range Interpretation Comments Phosphorus (test code = 3.5 mg/dL 2.5-4.5 2777-1) ISSA (test code = ISSA) Director Supply ID - [id number] Lab Interpretation (test Normal code = 57658-5) [facility]2021-[facility]-28 08:04:00 Test Item Value Reference Range Interpretation Comments Phosphorus (test code = 3.5 mg/dL 2.5-4.5 2777-1) ISSA (test code = ISSA) Director Supply ID - [id number] Lab Interpretation (test Normal code = 85300-8) [facility]21-[facility]28 08:04:00 Test Item Value Reference Range Interpretation Comments Phosphorus (test code = 3.5 mg/dL 2.5-4.5 2777-1) ISSA (test code = ISSA) Director Supply ID - [id number] Lab Interpretation (test Normal code = 63302-9) [facility]21-[facility]28 08:04:00 Test Item Value Reference Range Interpretation Comments Phosphorus (test code = 3.5 mg/dL 2.5-4.5 2777-1) ISSA (test code = ISSA) Director Supply ID - [id number] Lab Interpretation (test Normal code = 48137-9) [facility]OS[facility]US2021-[facility]-28 08:04:00 Test Item Value Reference Range Interpretation Comments PHOSPHORUS (BEAKER) (test code = 3.5 mg/dL 2.5-4.5 604) Director Supply ID - [id number] METABOLIC [id number] 06:06:00 Test Item Value Reference Range Interpretation [...] S NOT APPLICABLE FOR DIALYSIS PATIEN TS. Director Supply ID - [id number] ID - [id number] ID - [id number] ID - [id number] ID - [id number] ID - [id number] ID - [id number] ID - [id number] ID - [id number] ID - [id number] 05:56:00 Test Item Value Reference Range Interpretation Comments MAGNESIUM (BEAKER) (test code = 1.5 mg/dL 1.5-3.0 627) Director Supply ID - [id number] ID - [id number] ID - [id number] ID - [id number] CBC W/PLT COUNT & AUTO [id number] 05:39:00 Test Item Value Reference Range Interpretation [...] PERCENT (BEAKER) (test code = 2801) POCT-GLUCOSE [id number] 20:58:00 Test Item Value Reference Range Interpretation Comments POC-GLUCOSE METER 126 mg/dL 70-110 H : TESTED A T [facility] [address] (BEAKER) (test code [address], = 1538) [place] [address]: Director Supply/Techni cornelia ID = [id number] for Best amandacollinsRobysylvia POCT-GLUCOSE [id number] 17:16:00 Test Item Value Reference Range Interpretation Comments POC-GLUCOSE METER 201 mg/dL 70-110 H : TESTED A T [facility] [address]17 (BEAKER) (test code [address], = 1538) [place] [address]348: Director Supply/Techni cornelia ID = [id number] for Mily Coy SARS-CoV2/RT-PCR (Asymptomatic ONLY)2020-09-22 12:08:00 Test Item Value Reference Range Interpretation Comments SARS-COV2/RT-PCR Negative Not Detected, Performanc e of the Xpert (test code = Negative, See Xpress 69187-8) external report SARS-CoV-2/F siddhartha/RSV test for linked [...] Healthcare Prov iders: https://www.cep heid.com/ Documents/Xpert %20Xpress %32NKHT-XwC-5-F siddhartha-RSV/30 2-4508%20Rev.%2 0B%20HCP% 20Fact%20Sheet. pdf Fact Sheet for Healt hcare Patients: https://www.ZupCat.Soundwave/ Documents/Xpert %20Xpress %57EBGT-ZdL-3-F siddhartha-RSV/30 2-4507%20Rev.%2 0B%20Pati ent%20Fact%20Sh eet.pdf SARS-COV-2 SLSL Performed at:[facility] PERFORMING LAB [place] [address] (test code = Ignacio Sandersr 65323-0) [place] [address] ph: [phone] [facility]2020-09-22 12:08:00 Test Item Value Reference Range Interpretation Comments SARS-COV2/RT-PCR Negative Not Detected, Performanc e of the Xpert (test code = Negative, See Xpress 66229-9) external report SARS-CoV-2/F siddhartha/RSV test for linked [...] Fact Sh eet for Healthcare Prov iders: https://www.[employer]/ Documents/Xpert %20Xpress %70TLPD-WtK-6-F siddhartha-RSV/30 2-4508%20Rev.%2 0B%20HCP% 20Fact%20Sheet. pdf Fact Sheet for Healt hcare Patients: https://www.[employer]/ Documents/Xpert %20Xpress %81JDBU-JmX-5-F siddhartha-RSV/30 2-4507%20Rev.%2 0B%20Pati ent%20Fact%20Sh eet.pdf SARS-COV-2 SLSL Performed at:[facility] PERFORMING LAB Amy fine1317 (test code = Ignacio Nelson [address]-1) [place] [address] ph: [phone] [facility] (Asymptomatic ONLY)2020-09-22 12:08:00 Test Item Value Reference Range Interpretation Comments SARS-COV2/RT-PCR Negative Not Detected, Performanc e of the Xpert (test code = Negative, See Xpress 95391-4) external report SARS-CoV-2/F siddhartha/RSV test for linked [...] Fact Sh eet for Healthcare Prov iders: https://www.ZupCat.Soundwave/ Documents/Xpert %20Xpress %12FBIX-FnX-1-F siddhartha-RSV/30 2-4508%20Rev.%2 0B%20HCP% 20Fact%20Sheet. pdf Fact Sheet for Healt hcare Patients: https://www.[employer]/ Documents/Xpert %20Xpress %50HRBS-EtK-5-F siddhartha-RSV/30 2-4507%20Rev.%2 0B%20Pati ent%20Fact%20Sh eet.pdf SARS-COV-2 SLSL Performed at:[facility] PERFORMING LAB Amy fine1317 (test code = Ignacio Nelson [address]-6) [place] [address] ph: [phone] [facility] (Asymptomatic ONLY)2020-09-22 12:08:00 Test Item Value Reference Range Interpretation Comments SARS-COV2/RT-PCR Negative Not Detected, Performanc e of the Xpert (test code = Negative, See Xpress 79011-7) external report SARS-CoV-2/F siddhartha/RSV test for linked [...] Fact Sh eet for Healthcare Prov iders: https://www.ZupCat.com/ Documents/Xpert %20Xpress %22ZKTJ-WxX-4-F siddhartha-RSV/30 2-4508%20Rev.%2 0B%20HCP% 20Fact%20Sheet. pdf Fact Sheet for Healt hcare Patients: https://www.ZupCat.com/ Documents/Xpert %20Xpress %81FTSQ-PqL-6-F siddahrtha-RSV/30 2-4507%20Rev.%2 0B%20Pati ent%20Fact%20Sh eet.pdf SARS-COV-2 SLSL Performed at:[facility] PERFORMING LAB [facility] [id number] (test code = Ignacio Sandersbecky [address]-1) [place] [address] ph: [phone] [facility] (Asymptomatic ONLY)2020-09-22 12:08:00 Test Item Value Reference Range Interpretation Comments SARS-COV2/RT-PCR Negative Not Detected, Performanc e of the Xpert (test code = Negative, See Xpress 05455-5) external report SARS-CoV-2/F siddhartha/RSV test for linked [...] Fact Sh eet for Healthcare Prov iders: https://www.ZupCat.Soundwave/ Documents/Xpert %20Xpress %95ZDTS-RvX-7-F siddhartha-RSV/30 2-4508%20Rev.%2 0B%20HCP% 20Fact%20Sheet. pdf Fact Sheet for Healt hcare Patients: https://www.[employer]/ Documents/Xpert %20Xpress %55NECF-VjE-0-F siddhartha-RSV/30 2-4507%20Rev.%2 0B%20Pati ent%20Fact%20Sh eet.pdf SARS-COV-2 SLSL Performed at:[facility] PERFORMING LAB Amy Graff [id number] (test code = Pierre Josh Maximus Neslon [address]695-4) [place] [address] ph: [phone] [facility] (Asymptomatic ONLY)2020-09-22 12:08:00 Test Item Value Reference Range Interpretation Comments SARS-COV2/RT-PCR Negative Not Detected, Performanc e of the Xpert (test code = Negative, See Xpress 54123-6) external report SARS-CoV-2/F siddhartha/RSV test for linked [...] Fact Sh eet for Healthcare Prov iders: https://www.ZupCat.Soundwave/ Documents/Xpert %20Xpress %27SHCP-UdA-9-F siddhartha-RSV/30 %20Rev.%2 0B%20HCP% 20Fact%20Sheet. pdf Fact Sheet for Healt hcare Patients: https://www.ZupCat.Soundwave/ Documents/Xpert %20Xpress %53KDEM-KvF-0-F siddhartha-RSV/30 2-4507%20Rev.%2 0B%20Pati ent%20Fact%20Sh eet.pdf SARS-COV-2 SLSL Performed at:[facility] PERFORMING LAB Amy fine1317 (test code = Ignacio Nelson 43830-9) [place] [address] ph: [phone] [facility] (Asymptomatic ONLY)2020-09-22 12:08:00 Test Item Value Reference Range Interpretation Comments SARS-COV2/RT-PCR Negative Not Detected, Performanc e of the Xpert (test code = Negative, See Xpress 48522-8) external report SARS-CoV-2/F siddhartha/RSV test for linked [...] Fact Sh eet for Healthcare Prov iders: https://www.[employer]/ Documents/Xpert %20Xpress %46JQSE-HaI-2-F siddhartha-RSV/30 2-4508%20Rev.%2 0B%20HCP% 20Fact%20Sheet. pdf Fact Sheet for Healt hcare Patients: https://www.[employer]/ Documents/Xpert %20Xpress %04TPCT-QiN-1-F siddhartha-RSV/30 2-4507%20Rev.%2 0B%20Pati ent%20Fact%20Sh eet.pdf SARS-COV-2 SLSL Performed at:[facility] PERFORMING LAB [facility] [id number] (test code = [place] Josh Maximus Nelson [address]-7) [place] [address] ph: [phone] [facility] ([facility])2020-09-22 12:08:00 Test Item Value Reference Range Interpretation Comments SARS-COV2/RT-PCR Negative Not Detected, Performanc e of the Xpert (test code = Negative, See Xpress 6936769) external report SARS-CoV-2/F siddhartha/RSV test for linked [...] sooner.Fact She et for Healthcare Prov iders: https://www.JiaThis heid.com/ Documents/Xpert %20Xpress %19IVGX-DkU-4-F siddhartha-RSV/30 2-4508%20Rev.%2 0B%20HCP% 20Fact%20Sheet. pdfFact Sheet for Healt hcare Patients: https://www.Neurosearchid.Soundwave/ Documents/Xpert %20Xpress %11GPIC-AjW-5-F 30 2-4507%20Rev.%2 0B%20Pati ent%20Fact%20Sh eet.pdf SARS-COV-2 SLSL Performed at:[facility] PERFORMING LAB [place] [facility] (test code = Pierre Aleta Nelson 6653948) [place] [address] ph: [phone] CBC W/PLT COUNT & AUTO [id number] 07:40:00 Test Item Value Reference Range Interpretation [...] H PERCENT (BEAKER) (test code = 2801) [id number]/[id number] 07:34:00 Test Item Value Reference Interpretation Comments [...] PTT (test code = 28.0 See_Comment Final 20771-0) Information (Auto Output) [Automated message] The system [...] valves. Lab Interpretation Abnormal (test code = 21649-7) [facility][id number] 07:34:00 Test Item Value Reference Interpretation Comments [...] PTT (test code = 28.0 See_Comment Final 39773-5) Information (Auto Output) [Automated message] The system [...] valves. Lab Interpretation Abnormal (test code = 12838-6) [facility]PT/[id number] 07:34:00 Test Item Value Reference Interpretation Comments [...] PTT (test code = 28.0 See_Comment Final 72244-8) Information (Auto Output) [Automated message] The system [...] valves. Lab Interpretation Abnormal (test code = 65466-5) [facility]/[id number] 07:34:00 Test Item Value Reference Interpretation Comments [...] PTT (test code = 28.0 See_Comment Final 44051-1) Information (Auto Output) [Automated message] The system [...] valves. Lab Interpretation Abnormal (test code = 66998-1) [facility]/[id number] 07:34:00 Test Item Value Reference Interpretation Comments [...] PTT (test code = 28.0 See_Comment Final 01096-5) Information (Auto Output) [Automated message] The system [...] valves. Lab Interpretation Abnormal (test code = 88304-9) [facility]/[id number] 07:34:00 Test Item Value Reference Interpretation Comments [...] PTT (test code = 28.0 See_Comment Final 32970-1) Information (Auto Output) [Automated message] The system [...] valves. Lab Interpretation Abnormal (test code = 12867-3) [facility]/[id number] 07:34:00 Test Item Value Reference Interpretation Comments [...] PTT (test code = 28.0 See_Comment Final 12378-4) Information (Auto Output) [Automated message] The system [...] valves. Lab Interpretation Abnormal (test code = 37476-8) [facility]/[id number] 07:34:00 Test Item Value Reference Range Interpretation Comments PROTIME (BEAKER) (test 14.2 seconds 9.3-12.0 H Final Information code = 759) (Auto Output) INR (BEAKER) (test 1.30 See_Comment Final Inf ormation code = 370) (Auto Output) [Automated mess age] The system ic h generated this result transmit josé luis [...] 0-100 H (BEAKER) (test code = 700) Director Supply ID - [id number] [id number] 07:29:00 Test Item Value Reference Range Interpretation Comments Troponin I (test code = 0.05 ng/mL 0.00-0.15 84799-9) ISSA (test code = ISSA) Troponin I [...] failure, acidosis, acute neurological disease, and persistent tachyarrhythmia.[facility] ID - [id number] Lab Interpretation (test Normal code = 81982-8) [facility] [id number] 07:29:00 Test Item Value Reference Range Interpretation Comments Troponin I (test code = 0.05 ng/mL 0.00-0.15 05134-3) ISSA (test code = ISSA) Troponin I [...] failure, acidosis, acute neurological disease, and persistent tachyarrhythmia.[facility] ID - [id number] Lab Interpretation (test Normal code = 15503-6) [facility] [id number] 07:29:00 Test Item Value Reference Range Interpretation Comments Troponin I (test code = 0.05 ng/mL 0.00-0.15 44114-3) ISSA (test code = ISSA) Troponin I [...] failure, acidosis, acute neurological disease, and persistent tachyarrhythmia.[facility] ID - [id number] Lab Interpretation (test Normal code = 88950-0) [facility] [id number] 07:29:00 Test Item Value Reference Range Interpretation Comments Troponin I (test code = 0.05 ng/mL 0-0.15 71762-3) ISSA (test code = ISSA) Troponin I [...] failure, acidosis, acute neurological disease, and persistent tachyarrhythmia.[facility] ID - [id number] Lab Interpretation (test Normal code = 81495-1) [facility] [id number] 07:29:00 Test Item Value Reference Range Interpretation Comments Troponin I (test code = 0.05 ng/mL 0-0.15 25471-7) ISSA (test code = ISSA) Troponin I [...] failure, acidosis, acute neurological disease, and persistent tachyarrhythmia.[facility] ID - [id number] Lab Interpretation (test Normal code = 89080-7) [facility] [id number] 07:29:00 Test Item Value Reference Range Interpretation Comments Troponin I (test code = 0.05 ng/mL 0-0.15 23110-6) ISSA (test code = ISSA) Troponin I [...] failure, acidosis, acute neurological disease, and persistent tachyarrhythmia.[facility] ID - [id number] Lab Interpretation (test Normal code = 09801-2) [facility] [id number] 07:29:00 Test Item Value Reference Range Interpretation Comments Troponin I (test code = 0.05 ng/mL 0-0.15 54773-0) ISSA (test code = ISSA) Troponin I [...] failure, acidosis, acute neurological disease, and persistent tachyarrhythmia.[facility] ID - [id number] Lab Interpretation (test Normal code = 61782-3) [facility] [id number] 07:29:00 Test Item Value Reference Range Interpretation [...] failure, acidosis, acute neurological disease, and persistent tachyarrhythmia.[employer] ID - [id number] METABOLIC [id number] 07:25:00 Test Item Value Reference Range Interpretation [...] S NOT APPLICABLE FOR DIALYSIS PATIEN TS. Director Supply ID - [id number] ID - [id number] ID - [id number] ID - [id number] ID - [id number] ID - [id number] ID - [id number] ID - [id number] ID - [id number] ID - [id number] ID - [id number] ID - [id number] ID - [id number], CHEST, 1 VIEW, NON [id number] 06:44:00Reason for exam:->SHORTNESS OF BREATHReason for exam:->CHEST PAINShould this be performed at the bedside?->Yes [facility] : 1975 Sex: MFINAL [...] pleural effusion. No pneumothorax.Mild cardiomegaly. Signed: Moose Petersenort Verified Date/Time: 09/22/2020 06:44:53 0 6:44 AMXR chest 1 view portable / [id number] 06:44:00Interface, External Ris In - 09/22/2020 6:47 [...] cardiomegaly.Signed: Moose Petersen Verified Date/Time: 09/22/2020 06:44:53 [facility] / dvucqaa3028-21-22 06:44:00 Interface, External Ris In - 09/22/2020 [...] Signed: Moose Petersen Verified Date/Time: 09/22/2020 06:44:53 [facility] / [id number] 06:44:00 Interface, External Ris In - 09/22/2020 [...] Signed: Moose Petersen Verified Date/Time: 09/22/2020 06:44:53 [facility] / uwptkbi3982-60-57 06:44:00 Interface, External Ris In - 09/22/2020 [...] Signed: Moose Petersen Verified Date/Time: 09/22/2020 06:44:53 [facility] Ppkoqgasuncywe1960-47-24 06:40:53 Test Item Value Reference Range Interpretation [...] 74 BPM.Abnormal conduction noted: LAFB.T waves abnormal. [place] is normal. Other findings include: prolonged QTc interval. Clinical Impression: abnormal ECG Lab Interpretation Abnormal (test code = 79005-2) [facility] Uzxkduopfmmafi3798-47-12 06:40:53 Test Item Value Reference Range Interpretation [...] 74 BPM.Abnormal conduction noted: LAFB.T waves abnormal. [place] is normal. Other findings include: prolonged QTc interval. Clinical Impression: abnormal ECG Lab Interpretation Abnormal (test code = 25928-6) [facility] Lqnlbqwronzupw9846-10-51 06:40:53 Test Item Value Reference Range Interpretation [...] 74 BPM.Abnormal conduction noted: LAFB.T waves abnormal. [place] is normal. Other findings include: prolonged QTc interval. Clinical Impression: abnormal ECG Lab Interpretation Abnormal (test code = 26663-8) [facility] Vhseavykeeckup9102-23-71 06:40:53 Test Item Value Reference Range Interpretation [...] 74 BPM.Abnormal conduction noted: LAFB.T waves abnormal. [place] is normal. Other findings include: prolonged QTc interval. Clinical Impression: abnormal ECG Lab Interpretation Abnormal (test code = 56402-4) [facility] Hphzutxohoqpna1006-55-42 06:40:53 Test Item Value Reference Range Interpretation [...] 74 BPM.Abnormal conduction noted: LAFB.T waves abnormal. [place] is normal. Other findings include: prolonged QTc interval. Clinical Impression: abnormal ECG Lab Interpretation Abnormal (test code = 57158-1) [facility] Gyhfinmrgzyedv3314-69-22 06:40:53 Test Item Value Reference Range Interpretation [...] 74 BPM.Abnormal conduction noted: LAFB.T waves abnormal. [place] is normal. Other findings include: prolonged QTc interval. Clinical Impression: abnormal ECG Lab Interpretation Abnormal (test code = 04513-4) [facility] Ukjmdwaexyrxfu3864-33-55 06:40:53 Test Item Value Reference Range Interpretation [...] 74 BPM.Abnormal conduction noted: LAFB.T waves abnormal. [place] is normal. Other findings include: prolonged QTc interval. Clinical Impression: abnormal ECG Lab Interpretation Abnormal (test code = 20332-8) [facility]-[id number] 00:00:00Ordered by an unspecified provider.[facility]2021-06-27 00:00:00 [facility] by an unspecified provider[facility]:00Ordered by an unspecified provider.[facility]-[id number] 00:00:00Ordered by an unspecified provider.[facility] Description: Natriuretic peptide B [Mass/volume] in Serum or [id number] 15:06:00 Test Item Value Reference Range Interpretation Comments B-Type Natriuretic Peptide (test 614.6 pg/mL 0.0-100.0 H code = 69679-5) [facility] Description: Natriuretic peptide B [Mass/volume] in Serum or [id number] 15:06:00 Test Item Value Reference Range Interpretation Comments B-Type Natriuretic Peptide (test 614.6 pg/mL 0.0-100.0 H code = 04680-7) [facility] Description: Natriuretic peptide B [Mass/volume] in Serum or Ezupqz3276-25-74 15:06:00 Test Item Value Reference Range Interpretation Comments B-Type Natriuretic Peptide (test 614.6 pg/mL 0.0-100.0 H code = 31280-9) [facility] Description: Natriuretic peptide B [Mass/volume] in Serum or Wzvwxx9107-22-76 15:06:00 Test Item Value Reference Range Interpretation Comments B-Type Natriuretic Peptide (test 614.6 pg/mL 0.0-100.0 H code = 33904-8) [facility] Description: Natriuretic peptide B [Mass/volume] in Serum or Krwmva3228-90-41 15:06:00 Test Item Value Reference Range Interpretation Comments B-Type Natriuretic Peptide (test 614.6 pg/mL 0.0-100.0 H code = 44960-5) [facility] Description: Natriuretic peptide B [Mass/volume] in Serum or Arnwwk7537-63-49 15:06:00 Test Item Value Reference Range Interpretation Comments B-Type Natriuretic Peptide (test 614.6 pg/mL 0.0-100.0 H code = 78189-5) [facility] Description: Natriuretic peptide B [Mass/volume] in Serum or Lbysjy5295-52-99 15:06:00 Test Item Value Reference Range Interpretation Comments B-Type Natriuretic Peptide (test 614.6 pg/mL 0.0-100.0 H code = 62001-5) [facility] Description: Natriuretic peptide B [Mass/volume] in Serum or Lmfwfa1899-77-95 15:06:00 Test Item Value Reference Range Interpretation Comments B-Type Natriuretic Peptide (test 614.6 pg/mL 0.0-100.0 H code = 15857-2) [facility] Description: Natriuretic peptide B [Mass/volume] in Serum or Bsxnci4191-81-24 15:06:00 Test Item Value Reference Range Interpretation Comments B-Type Natriuretic Peptide (test 614.6 pg/mL 0.0-100.0 H code = 54798-5) [facility] Description: Natriuretic peptide B [Mass/volume] in Serum or Yhsopz7622-89-84 15:06:00 Test Item Value Reference Range Interpretation Comments B-Type Natriuretic Peptide (test 614.6 pg/mL 0.0-100.0 H code = 25797-6) [facility] Description: Natriuretic peptide B [Mass/volume] in Serum or Bszgcb1795-10-11 15:06:00 Test Item Value Reference Range Interpretation Comments B-Type Natriuretic Peptide (test 614.6 pg/mL 0.0-100.0 H code = 66825-2) [facility] Description: Natriuretic peptide B [Mass/volume] in Serum or Dhajpe9846-34-07 15:06:00 Test Item Value Reference Range Interpretation Comments B-Type Natriuretic Peptide (test 614.6 pg/mL 0.0-100.0 H code = 44942-2) [facility] Description: Natriuretic peptide B [Mass/volume] in Serum or Vzlqdi4748-83-86 15:06:00 Test Item Value Reference Range Interpretation Comments B-Type Natriuretic Peptide (test 614.6 pg/mL 0.0-100.0 H code = 20217-6) [facility] Description: Natriuretic peptide B [Mass/volume] in Serum or Qpyvll5954-61-44 15:06:00 Test Item Value Reference Range Interpretation Comments B-Type Natriuretic Peptide (test 614.6 pg/mL 0.0-100.0 H code = 45770-6) [facility] Description: Natriuretic peptide B [Mass/volume] in Serum or Jqutam5363-76-34 15:06:00 Test Item Value Reference Range Interpretation Comments B-Type Natriuretic Peptide (test 614.6 pg/mL 0.0-100.0 H code = 01039-3) [facility] Description: Natriuretic peptide B [Mass/volume] in Serum or Vpjefh4725-92-92 15:06:00 Test Item Value Reference Range Interpretation Comments B-Type Natriuretic Peptide (test 614.6 pg/mL 0.0-100.0 H code = 41984-9) [facility] Description: Natriuretic peptide B [Mass/volume] in Serum or Gqkhym4432-55-63 15:06:00 Test Item Value Reference Range Interpretation Comments B-Type Natriuretic Peptide (test 614.6 pg/mL 0.0-100.0 H code = 65778-1) [facility] Description: Natriuretic peptide B [Mass/volume] in Serum or Ueahes9829-75-51 15:06:00 Test Item Value Reference Range Interpretation Comments B-Type Natriuretic Peptide (test 614.6 pg/mL 0.0-100.0 H code = 08537-5) [facility] Description: Natriuretic peptide B [Mass/volume] in Serum or Rqxopv5851-09-65 15:06:00 Test Item Value Reference Range Interpretation Comments B-Type Natriuretic Peptide (test 614.6 pg/mL 0.0-100.0 H code = 06405-0) [facility] Description: Natriuretic peptide B [Mass/volume] in Serum or Nbynni8731-32-08 15:06:00 Test Item Value Reference Range Interpretation Comments B-Type Natriuretic Peptide (test 614.6 pg/mL 0.0-100.0 H code = 43510-9) [facility] Description: Lipid Fgwng3400-71-24 01:45:00 Test Item Value Reference Range Interpretation Comments Cholesterol, Total (test code = 207 mg/dL 100-199 H 2093-3) Triglycerides (test code = 2571-8) 126 mg/dL 0-149 HDL Cholesterol (test code = 37 mg/dL >39 L 2085-9) VLDL Cholesterol Renuka (test code = 23 mg/dL 5-40 20515-8) LDL Chol Calc (NIH) (test code = 147 mg/dL 0-99 H 50324-7) Comment: (test code = 52245-0) [facility]: Lipid Sbcqi6496-20-20 01:45:00 Test Item Value Reference Range Interpretation Comments Cholesterol, Total (test code = 207 mg/dL 100-199 H 3-3) Triglycerides (test code = 2571-8) 126 mg/dL 0-149 HDL Cholesterol (test code = 37 mg/dL >39 L 5-9) VLDL Cholesterol Renuka (test code = 23 mg/dL 5-40 18874-1) LDL Chol Calc (NIH) (test code = 147 mg/dL 0-99 H 50567-0) Comment: (test code = 70698-0) [facility] Description: Lipid Uzhgq3367-09-48 01:45:00 Test Item Value Reference Range Interpretation Comments Cholesterol, Total (test code = 207 mg/dL 100-199 H 2093-3) Triglycerides (test code = 2571-8) 126 mg/dL 0-149 HDL Cholesterol (test code = 37 mg/dL >39 L 2085-9) VLDL Cholesterol Renuka (test code = 23 mg/dL 5-40 15928-4) LDL Chol Calc (NIH) (test code = 147 mg/dL 0-99 H 55388-9) Comment: (test code = 36455-2) [facility] Description: Lipid Arakt1675-78-50 01:45:00 Test Item Value Reference Range Interpretation Comments Cholesterol, Total (test code = 207 mg/dL 100-199 H 2093-3) Triglycerides (test code = 2571-8) 126 mg/dL 0-149 HDL Cholesterol (test code = 37 mg/dL >39 L 2085-9) VLDL Cholesterol Renuka (test code = 23 mg/dL 5-40 46588-7) LDL Chol Calc (NIH) (test code = 147 mg/dL 0-99 H 52309-0) Comment: (test code = 82046-1) [facility] Description: Lipid Yyyzd9807-50-03 01:45:00 Test Item Value Reference Range Interpretation Comments Cholesterol, Total (test code = 207 mg/dL 100-199 H 2093-3) Triglycerides (test code = 2571-8) 126 mg/dL 0-149 HDL Cholesterol (test code = 37 mg/dL >39 L 2085-9) VLDL Cholesterol Renuka (test code = 23 mg/dL 5-40 23223-2) LDL Chol Calc (NIH) (test code = 147 mg/dL 0-99 H 71304-4) Comment: (test code = 41645-7) [facility] Description: Lipid Yzxjf7448-18-17 01:45:00 Test Item Value Reference Range Interpretation Comments Cholesterol, Total (test code = 207 mg/dL 100-199 H 2093-3) Triglycerides (test code = 2571-8) 126 mg/dL 0-149 HDL Cholesterol (test code = 37 mg/dL >39 L 2085-9) VLDL Cholesterol Renuka (test code = 23 mg/dL 5-40 20221-6) LDL Chol Calc (NIH) (test code = 147 mg/dL 0-99 H 34829-9) Comment: (test code = 41296-9) [facility] Description: Lipid Uyzkl5312-32-50 01:45:00 Test Item Value Reference Range Interpretation Comments Cholesterol, Total (test code = 207 mg/dL 100-199 H 2093-3) Triglycerides (test code = 2571-8) 126 mg/dL 0-149 HDL Cholesterol (test code = 37 mg/dL >39 L 2085-9) VLDL Cholesterol Renuka (test code = 23 mg/dL 5-40 20287-0) LDL Chol Calc (NIH) (test code = 147 mg/dL 0-99 H 55226-5) Comment: (test code = 75649-8) [facility] Description: Lipid Oaopa8829-85-84 01:45:00 Test Item Value Reference Range Interpretation Comments Cholesterol, Total (test code = 207 mg/dL 100-199 H 2093-3) Triglycerides (test code = 2571-8) 126 mg/dL 0-149 HDL Cholesterol (test code = 37 mg/dL >39 L 5-9) VLDL Cholesterol Renuka (test code = 23 mg/dL 5-40 49342-8) LDL Chol Calc (NIH) (test code = 147 mg/dL 0-99 H 87458-4) Comment: (test code = 87455-2) [facility] Description: Lipid Kqfjj1073-92-60 01:45:00 Test Item Value Reference Range Interpretation Comments Cholesterol, Total (test code = 207 mg/dL 100-199 H 2093-3) Triglycerides (test code = 2571-8) 126 mg/dL 0-149 HDL Cholesterol (test code = 37 mg/dL >39 L 5-9) VLDL Cholesterol Renuka (test code = 23 mg/dL 5-40 71031-6) LDL Chol Calc (NIH) (test code = 147 mg/dL 0-99 H 58275-8) Comment: (test code = 74747-8) [facility] Description: Lipid Zkhze8096-95-81 01:45:00 Test Item Value Reference Range Interpretation Comments Cholesterol, Total (test code = 207 mg/dL 100-199 H 2093-3) Triglycerides (test code = 2571-8) 126 mg/dL 0-149 HDL Cholesterol (test code = 37 mg/dL >39 L 5-9) VLDL Cholesterol Renuka (test code = 23 mg/dL 5-40 96664-0) LDL Chol Calc (NIH) (test code = 147 mg/dL 0-99 H 99798-1) Comment: (test code = 39387-4) [facility] Description: Lipid Zfwhk1751-79-65 01:45:00 Test Item Value Reference Range Interpretation Comments Cholesterol, Total (test code = 207 mg/dL 100-199 H 2093-3) Triglycerides (test code = 2571-8) 126 mg/dL 0-149 HDL Cholesterol (test code = 37 mg/dL >39 L 2085-9) VLDL Cholesterol Renuka (test code = 23 mg/dL 5-40 49676-1) LDL Chol Calc (NIH) (test code = 147 mg/dL 0-99 H 81810-7) Comment: (test code = 46860-1) [facility] Description: Lipid Omokl6218-86-74 01:45:00 Test Item Value Reference Range Interpretation Comments Cholesterol, Total (test code = 207 mg/dL 100-199 H 2093-3) Triglycerides (test code = 2571-8) 126 mg/dL 0-149 HDL Cholesterol (test code = 37 mg/dL >39 L 2085-9) VLDL Cholesterol Renuka (test code = 23 mg/dL 5-40 40491-9) LDL Chol Calc (NIH) (test code = 147 mg/dL 0-99 H 95472-5) Comment: (test code = 88731-4) [facility] Description: Lipid Fpiyp7381-97-42 01:45:00 Test Item Value Reference Range Interpretation Comments Cholesterol, Total (test code = 207 mg/dL 100-199 H 2093-3) Triglycerides (test code = 2571-8) 126 mg/dL 0-149 HDL Cholesterol (test code = 37 mg/dL >39 L 5-9) VLDL Cholesterol Renuka (test code = 23 mg/dL 5-40 17217-3) LDL Chol Calc (NIH) (test code = 147 mg/dL 0-99 H 22260-6) Comment: (test code = 33553-7) [facility] Description: Lipid Muura7970-47-30 01:45:00 Test Item Value Reference Range Interpretation Comments Cholesterol, Total (test code = 207 mg/dL 100-199 H 2093-3) Triglycerides (test code = 2571-8) 126 mg/dL 0-149 HDL Cholesterol (test code = 37 mg/dL >39 L 5-9) VLDL Cholesterol Renuka (test code = 23 mg/dL 5-40 65186-4) LDL Chol Calc (NIH) (test code = 147 mg/dL 0-99 H 77055-7) Comment: (test code = 84189-0) [facility] Description: Lipid Sfegt5669-41-57 01:45:00 Test Item Value Reference Range Interpretation Comments Cholesterol, Total (test code = 207 mg/dL 100-199 H 3-3) Triglycerides (test code = 2571-8) 126 mg/dL 0-149 HDL Cholesterol (test code = 37 mg/dL >39 L 5-9) VLDL Cholesterol Renuka (test code = 23 mg/dL 5-40 77926-5) LDL Chol Calc (NIH) (test code = 147 mg/dL 0-99 H 18415-5) Comment: (test code = 89608-1) [facility] Description: Lipid Hmvrf6296-11-48 01:45:00 Test Item Value Reference Range Interpretation Comments Cholesterol, Total (test code = 207 mg/dL 100-199 H 3-3) Triglycerides (test code = 2571-8) 126 mg/dL 0-149 HDL Cholesterol (test code = 37 mg/dL >39 L 5-9) VLDL Cholesterol Renuka (test code = 23 mg/dL 5-40 84618-2) LDL Chol Calc (NIH) (test code = 147 mg/dL 0-99 H 23861-1) Comment: (test code = 32951-9) [facility] Description: Lipid Cupyi4273-17-36 01:45:00 Test Item Value Reference Range Interpretation Comments Cholesterol, Total (test code = 207 mg/dL 100-199 H 3-3) Triglycerides (test code = 2571-8) 126 mg/dL 0-149 HDL Cholesterol (test code = 37 mg/dL >39 L 5-9) VLDL Cholesterol Renuka (test code = 23 mg/dL 5-40 24418-9) LDL Chol Calc (NIH) (test code = 147 mg/dL 0-99 H 16049-4) Comment: (test code = 26694-3) [facility] Description: Lipid Drqde3797-14-91 01:45:00 Test Item Value Reference Range Interpretation Comments Cholesterol, Total (test code = 207 mg/dL 100-199 H 3-3) Triglycerides (test code = 2571-8) 126 mg/dL 0-149 HDL Cholesterol (test code = 37 mg/dL >39 L 2085-9) VLDL Cholesterol Renuka (test code = 23 mg/dL 5-40 25836-5) LDL Chol Calc (NIH) (test code = 147 mg/dL 0-99 H 83515-7) Comment: (test code = 52447-9) [facility] Description: Lipid Goqyh9879-76-47 01:45:00 Test Item Value Reference Range Interpretation Comments Cholesterol, Total (test code = 207 mg/dL 100-199 H 2093-3) Triglycerides (test code = 2571-8) 126 mg/dL 0-149 HDL Cholesterol (test code = 37 mg/dL >39 L 2085-9) VLDL Cholesterol Renuka (test code = 23 mg/dL 5-40 86946-6) LDL Chol Calc (NIH) (test code = 147 mg/dL 0-99 H 74329-3) Comment: (test code = 70927-2) [facility] Description: Lipid Dyurd7043-76-64 01:45:00 Test Item Value Reference Range Interpretation Comments Cholesterol, Total (test code = 207 mg/dL 100-199 H 2093-3) Triglycerides (test code = 2571-8) 126 mg/dL 0-149 HDL Cholesterol (test code = 37 mg/dL >39 L 5-9) VLDL Cholesterol Renuka (test code = 23 mg/dL 5-40 73961-6) LDL Chol Calc (NIH) (test code = 147 mg/dL 0-99 H 53977-3) Comment: (test code = 60738-2) [facility] Description: Comp. Metabolic Panel (14)2020-08-16 01:19:00 Test Item Value Reference Range Interpretation Comments Glucose (test code 424 mg/dL 65-99 H = 2345-7) BUN (test code = 27 mg/dL 6-24 H 3094-0) Creatinine (test 1.88 mg/dL 0.76-1.27 H code = 2160-0) eGFR If NonAfricn 42 >59 L Am (test code = mL/min/1.73 81521-6) eGFR If Africn Am 48 >59 L [facility] currently (test code = mL/min/1[place]73 [place] [address]-3) compliance with the current recommendations of the [employer]. [place] will update re porting as new guidelin es are published from the NKF-ASN Task force.
<br/ >Perfor med by:
[facility] [place] [facility] (HD)

BUN/Creatinine 14 9-20 Ratio (test code = 3097-3) Sodium (test code = 138 mmol/L 763-821 8290-2) Potassium (test 4.2 mmol/L 3.5-5.2 code = 2823-3) Chloride (test code 98 mmol/L 96-106 = 2075-0) Carbon Dioxide, 28 mmol/L 20-29 Total (test code = 2027-9) Calcium (test code 8.4 mg/dL 8.7-10.2 L = 92984-4) Protein, Total 6.1 g/dL 6.0-8.5 (test code = 2885-2) Albumin (test code 3.0 g/dL 4.0-5.0 L = 1751-7) Globulin, Total 3.1 g/dL 1.5-4.5 (test code = 34101-9) A/G Ratio (test 1.0 1.2-2.2 L code = 1759-0) Bilirubin, Total 0.6 mg/dL 0.0-1.2 (test code = 1974-2) Alkaline 130 IU/L 48-121 H Phosphatase (test Pl ease note code = 6768-6) reference int erval change
<b r/>Perf ormed by:
[facility] ([place])

AST (SGOT) (test 15 IU/L 0-40 code = 1920-8) ALT (SGPT) (test 18 IU/L 0-44 code = 1742-6) [facility] Description: Comp. Metabolic Panel (14)2020-08-16 01:19:00 Test Item Value Reference Range Interpretation Comments Glucose (test code 424 mg/dL 65-99 H = 2345-7) BUN (test code = 27 mg/dL 6-24 H 3094-0) Creatinine (test 1.88 mg/dL 0.76-1.27 H code = 2160-0) eGFR If NonAfricn 42 >59 L Am (test code = mL/min/1.73 84055-8) eGFR If Africn Am 48 >59 L [facility] currently (test code = mL/min/1.73 [place] [address]-7) compliance with the current recommendations of the [employer] Kid[employer]. [place] will update re porting as new guidelin es are published from the NKF-ASN Task force.
<br/ >Perfor med by:
[facility] [place] [facility] (HD)

BUN/Creatinine 14 9-20 Ratio (test code = 3097-3) Sodium (test code = 138 mmol/L 236-435 6265-2) Potassium (test 4.2 mmol/L 3.5-5.2 code = 2823-3) Chloride (test code 98 mmol/L 96-106 = 2075-0) Carbon Dioxide, 28 mmol/L 20-29 Total (test code = 2027-9) Calcium (test code 8.4 mg/dL 8.7-10.2 L = 30458-5) Protein, Total 6.1 g/dL 6.0-8.5 (test code = 2885-2) Albumin (test code 3.0 g/dL 4.0-5.0 L = 1751-7) Globulin, Total 3.1 g/dL 1.5-4.5 (test code = 50415-7) A/G Ratio (test 1.0 1.2-2.2 L code [...] >59 L Am (test code = mL/min/1.73 39894-0) eGFR If Africn Am 48 >59 L [facility] currently (test code = mL/min/1.73 [place] [address]-9) compliance with the current recommendations of the [employer]. [place] will update re porting as new guidelin es are published from the NKF-ASN Task force.
<br/ >Perfor med by:
[facility] [place] [facility] (HD)

BUN/Creatinine 14 9-20 Ratio (test code = 3097-3) Sodium (test code = 138 mmol/L 331-285 0904-2) Potassium (test 4.2 mmol/L 3.5-5.2 code = 2823-3) Chloride (test code 98 mmol/L 96-106 = 2075-0) Carbon Dioxide, 28 mmol/L 20-29 Total (test code = 2027-) Calcium (test code 8.4 mg/dL 8.7-10.2 L = 68385-5) Protein, Total 6.1 g/dL 6.0-8.5 (test code = 2885-2) Albumin (test code 3.0 g/dL 4.0-5.0 L = 1751-7) Globulin, Total 3.1 g/dL 1.5-4.5 (test code = 16554-6) A/G Ratio (test 1.0 1.2-2.2 L code [...] >59 L Am (test code = mL/min/1.73 86883-3) eGFR If Africn Am 48 >59 L [facility] currently (test code = mL/min/1.73 [place] [address]-9) compliance with the current recommendations of the [employer]. [facility] [place] will update re porting as new guidelin es are published from the NKF-ASN Task force.
<br/ >Perfor med by:
[facility] [place] [facility] (HD)

BUN/Creatinine 14 9-20 Ratio (test code = 3097-3) Sodium (test code = 138 mmol/L 722-976 3349-2) Potassium (test 4.2 mmol/L 3.5-5.2 code = 2823-3) Chloride (test code 98 mmol/L 96-106 = 2075-0) Carbon Dioxide, 28 mmol/L 20-29 Total (test code = 2027-) Calcium (test code 8.4 mg/dL 8.7-10.2 L = 64447-6) Protein, Total 6.1 g/dL 6.0-8.5 (test code = 2885-2) Albumin (test code 3.0 g/dL 4.0-5.0 L = 1751-7) Globulin, Total 3.1 g/dL 1.5-4.5 (test code = 68327-8) A/G Ratio (test 1.0 1.2-2.2 L code = 1759-0) Bilirubin, Total 0.6 mg/dL 0.0-1.2 (test code = 1975-2) Alkaline 130 IU/L 48-121 H Phosphatase (test Pl ease note code = 6768-6) reference int erval change
<b r/>Perf ormed by:
[facility] ([place])

AST (SGOT) (test 15 IU/L 0-40 code = 1920-8) ALT (SGPT) (test 18 IU/L 0-44 code = 1742-6) [facility] Description: Comp. Metabolic Panel (14)2020-08-16 01:19:00 Test Item Value Reference Range Interpretation Comments Glucose (test code 424 mg/dL 65-99 H = 2345-7) BUN (test code = 27 mg/dL 6-24 H 3094-0) Creatinine (test 1.88 mg/dL 0.76-1.27 H code = 2160-0) eGFR If NonAfricn 42 >59 L Am (test code = mL/min/1.73 83172-3) eGFR If Africn Am 48 >59 L [facility] currently (test code = mL/min/1.73 [place] [address]-0) compliance with the current recommendations of the [employer]. [facility] [place] will update re porting as new guidelin es are published from the NKF-ASN Task force.
<br/ >Perfor med by:
[facility] [place] (HD)

BUN/Creatinine 14 9-20 Ratio (test code = 3097-3) Sodium (test code = 138 mmol/L 087-508 5174-2) Potassium (test 4.2 mmol/L 3.5-5.2 code = 2823-3) Chloride (test code 98 mmol/L 96-106 = 2075-0) Carbon Dioxide, 28 mmol/L 20-29 Total (test code = 2027-) Calcium (test code 8.4 mg/dL 8.7-10.2 L = 98160-1) Protein, Total 6.1 g/dL 6.0-8.5 (test code = 2885-2) Albumin (test code 3.0 g/dL 4.0-5.0 L = 1751-7) Globulin, Total 3.1 g/dL 1.5-4.5 (test code = 49205-6) A/G Ratio (test 1.0 1.2-2.2 L code = 1759-0) Bilirubin, Total 0.6 mg/dL 0.0-1.2 (test code = 1974-2) Alkaline 130 IU/L 48-121 H Phosphatase (test Pl ease note code = 6768-6) reference int erval change
<b r/>Perf ormed by:
[facility] ([place])

AST (SGOT) (test 15 IU/L 0-40 code = 1920-8) ALT (SGPT) (test 18 IU/L 0-44 code = 1742-6) [facility]: Comp. Metabolic Panel (14)2020-08-16 01:19:00 Test Item Value Reference Range Interpretation Comments Glucose (test code 424 mg/dL 65-99 H = 2345-7) BUN (test code = 27 mg/dL 6-24 H 3094-0) Creatinine (test 1.88 mg/dL 0.76-1.27 H code = 2160-0) eGFR If NonAfricn 42 >59 L Am (test code = mL/min/1.73 62969-2) eGFR If Africn Am 48 >59 L [facility] currently (test code = mL/min/1.73 [place] [address]-3) compliance with the current recommendations of the [employer]. [facility] [place] will update re porting as new guidelin es are published from the NKF-ASN Task force.
<br/ >Perfor med by:
[facility] [place] [facility] (HD)

BUN/Creatinine 14 9-20 Ratio (test code = 3097-3) Sodium (test code = 138 mmol/L 576-946 0964-2) Potassium (test 4.2 mmol/L 3.5-5.2 code = 2823-3) Chloride (test code 98 mmol/L 96-106 = 2075-0) Carbon Dioxide, 28 mmol/L 20-29 Total (test code = 2027-) Calcium (test code 8.4 mg/dL 8.7-10.2 L = 13065-5) Protein, Total 6.1 g/dL 6.0-8.5 (test code = 2885-2) Albumin (test code 3.0 g/dL 4.0-5.0 L = 1751-7) Globulin, Total 3.1 g/dL 1.5-4.5 (test code = 77081-4) A/G Ratio (test 1.0 1.2-2.2 L code = 1759-0) Bilirubin, Total 0.6 mg/dL 0.0-1.2 (test code = 1975-2) Alkaline 130 IU/L 48-121 H Phosphatase (test Pl ease note code = 6768-6) reference int erval change
<b r/>Perf ormed by:
[facility] ([place])

AST (SGOT) (test 15 IU/L 0-40 code = 1920-8) ALT (SGPT) (test 18 IU/L 0-44 code = 1742-6) [facility] Description: Comp. Metabolic Panel (14)2020-08-16 01:19:00 Test Item Value Reference Range Interpretation Comments Glucose (test code 424 mg/dL 65-99 H = 2345-7) BUN (test code = 27 mg/dL 6-24 H 3094-0) Creatinine (test 1.88 mg/dL 0.76-1.27 H code = 2160-0) eGFR If NonAfricn 42 >59 L Am (test code = mL/min/1.73 21769-1) eGFR If Africn Am 48 >59 L [facility] currently (test code = mL/min/1.73 [place] [address]-6) compliance with the current recommendations of the [employer]. [facility] [place] will update re porting as new guidelin es are published from the NKF-ASN Task force.
<br/ >Perfor med by:
[facility] [place] [facility] (HD)

BUN/Creatinine 14 9-20 Ratio (test code = 3097-3) Sodium (test code = 138 mmol/L 270-619 7791-2) Potassium (test 4.2 mmol/L 3.5-5.2 code = 2823-3) Chloride (test code 98 mmol/L 96-106 = 5-0) Carbon Dioxide, 28 mmol/L 20-29 Total (test code = 2027-) Calcium (test code 8.4 mg/dL 8.7-10.2 L = 91852-7) Protein, Total 6.1 g/dL 6.0-8.5 (test code = 2885-2) Albumin (test code 3.0 g/dL 4.0-5.0 L = 1751-7) Globulin, Total 3.1 g/dL 1.5-4.5 (test code = 96011-7) A/G Ratio (test 1.0 1.2-2.2 L code = 1759-0) Bilirubin, Total 0.6 mg/dL 0.0-1.2 (test code = 1975-2) Alkaline 130 IU/L 48-121 H Phosphatase (test Pl ease note code = 6768-6) reference int erval change
<b r/>Perf ormed by:
[facility] ([place])

AST (SGOT) (test 15 IU/L 0-40 code = 1920-8) ALT (SGPT) (test 18 IU/L 0-44 code = 1742-6) [facility] Description: Comp. Metabolic Panel (14)2020-08-16 01:19:00 Test Item Value Reference Range Interpretation Comments Glucose (test code 424 mg/dL 65-99 H = 2345-7) BUN (test code = 27 mg/dL 6-24 H 3094-0) Creatinine (test 1.88 mg/dL 0.76-1.27 H code = 2160-0) eGFR If NonAfricn 42 >59 L Am (test code = mL/min/1.73 35834-7) eGFR If Africn Am 48 >59 L [facility] currently (test code = mL/min/1.73 [place] 08[address]-1) compliance with the current recommendations of the [employer]. [facility] [place] will update re porting as new guidelin es are published from the NKF-ASN Task force.
<br/ >Perfor med by:
[facility] [place] [facility] (HD)

BUN/Creatinine 14 9-20 Ratio (test code = 3097-3) Sodium (test code = 138 mmol/L 349-011 4178-2) Potassium (test 4.2 mmol/L 3.5-5.2 code = 2823-3) Chloride (test code 98 mmol/L 96-106 = 2075-0) Carbon Dioxide, 28 mmol/L 20-29 Total (test code = 2027-) Calcium (test code 8.4 mg/dL 8.7-10.2 L = 62694-4) Protein, Total 6.1 g/dL 6.0-8.5 (test code = 2885-2) Albumin (test code 3.0 g/dL 4.0-5.0 L = 1751-7) Globulin, Total 3.1 g/dL 1.5-4.5 (test code = 18325-4) A/G Ratio (test 1.0 1.2-2.2 L code = 1759-0) Bilirubin, Total 0.6 mg/dL 0.0-1.2 (test code = 1975-2) Alkaline 130 IU/L 48-121 H Phosphatase (test Pl ease note code = 6768-6) reference int erval change
<b r/>Perf ormed by:
[facility] ([place])

AST (SGOT) (test 15 IU/L 0-40 code = 1920-8) ALT (SGPT) (test 18 IU/L 0-44 code = 1742-6) [facility] Description: Comp. Metabolic Panel (14)2020-08-16 01:19:00 Test Item Value Reference Range Interpretation Comments Glucose (test code 424 mg/dL 65-99 H = 2345-7) BUN (test code = 27 mg/dL 6-24 H 3094-0) Creatinine (test 1.88 mg/dL 0.76-1.27 H code = 2160-0) eGFR If NonAfricn 42 >59 L Am (test code = mL/min/1.73 26534-7) eGFR If Africn Am 48 >59 L [facility] currently (test code = mL/min/1.73 [place] [address]-3) compliance with the current recommendations of the [employer]. [facility] [place] will update re porting as new guidelin es are published from the NKF-ASN Task force.
<br/ >Perfor med by:
[facility] [place] ([place])

BUN/Creatinine 14 9-20 Ratio (test code = 3097-3) Sodium (test code = 138 mmol/L 405-754 7979-2) Potassium (test 4.2 mmol/L 3.5-5.2 code = 2823-3) Chloride (test code 98 mmol/L 96-106 = 2075-0) Carbon Dioxide, 28 mmol/L 20-29 Total (test code = 2027-) Calcium (test code 8.4 mg/dL 8.7-10.2 L = 95227-5) Protein, Total 6.1 g/dL 6.0-8.5 (test code = 2885-2) Albumin (test code 3.0 g/dL 4.0-5.0 L = 1751-7) Globulin, Total 3.1 g/dL 1.5-4.5 (test code = 51993-1) A/G Ratio (test 1.0 1.2-2.2 L code = 1759-0) Bilirubin, Total 0.6 mg/dL 0.0-1.2 (test code = 1974-2) Alkaline 130 IU/L 48-121 H Phosphatase (test Pl ease note code = 6768-6) reference int erval change
<b r/>Perf ormed by:
[facility] ([place])

AST (SGOT) (test 15 IU/L 0-40 code = 1920-8) ALT (SGPT) (test 18 IU/L 0-44 code = 1742-6) [facility]: Comp. Metabolic Panel (14)2020-08-16 01:19:00 Test Item Value Reference Range Interpretation Comments Glucose (test code 424 mg/dL 65-99 H = 2345-7) BUN (test code = 27 mg/dL 6-24 H 3094-0) Creatinine (test 1.88 mg/dL 0.76-1.27 H code = 2160-0) eGFR If NonAfricn 42 >59 L Am (test code = mL/min/1.73 32200-5) eGFR If Africn Am 48 >59 L [facility] currently (test code = mL/min/1.73 [place] [address]-6) compliance with the current recommendations of the [employer]. [facility] [place] will update re porting as new guidelin es are published from the NKF-ASN Task force.
<br/ >Perfor med by:
[facility] [place] [facility] (HD)

BUN/Creatinine 14 9-20 Ratio (test code = 3097-3) Sodium (test code = 138 mmol/L 102-992 0614-2) Potassium (test 4.2 mmol/L 3.5-5.2 code = 2823-3) Chloride (test code 98 mmol/L 96-106 = 2075-0) Carbon Dioxide, 28 mmol/L 20-29 Total (test code = 2027-9) Calcium (test code 8.4 mg/dL 8.7-10.2 L = 05696-4) Protein, Total 6.1 g/dL 6.0-8.5 (test code = 2885-2) Albumin (test code 3.0 g/dL 4.0-5.0 L = 1751-7) Globulin, Total 3.1 g/dL 1.5-4.5 (test code = 16188-1) A/G Ratio (test 1.0 1.2-2.2 L code [...] >59 L Am (test code = mL/min/1.73 36477-2) eGFR If Africn Am 48 >59 L [facility] currently (test code = mL/min/1.73 [place] [address]-0) compliance with the current recommendations of the [employer]. [facility] [place] will update re porting as new guidelin es are published from the NKF-ASN Task force.
<br/ >Perfor med by:
[facility] [place] [facility] (HD)

BUN/Creatinine 14 9-20 Ratio (test code = 3097-3) Sodium (test code = 138 mmol/L 513-802 5664-2) Potassium (test 4.2 mmol/L 3.5-5.2 code = 2823-3) Chloride (test code 98 mmol/L 96-106 = 2075-0) Carbon Dioxide, 28 mmol/L 20-29 Total (test code = 2027-9) Calcium (test code 8.4 mg/dL 8.7-10.2 L = 79174-1) Protein, Total 6.1 g/dL 6.0-8.5 (test code = 2885-2) Albumin (test code 3.0 g/dL 4.0-5.0 L = 1751-7) Globulin, Total 3.1 g/dL 1.5-4.5 (test code = 45777-8) A/G Ratio (test 1.0 1.2-2.2 L code = 1759-0) Bilirubin, Total 0.6 mg/dL 0.0-1.2 (test code = 1975-2) Alkaline 130 IU/L 48-121 H Phosphatase (test Pl ease note code = 6768-6) reference int erval change
<b r/>Perf ormed by:
L [facility] ([place])

AST (SGOT) (test 15 IU/L 0-40 code = 1920-8) ALT (SGPT) (test 18 IU/L 0-44 code = 1742-6) [facility] Description: Comp. Metabolic Panel (14)2020-08-16 01:19:00 Test Item Value Reference Range Interpretation Comments Glucose (test code 424 mg/dL 65-99 H = 2345-7) BUN (test code = 27 mg/dL 6-24 H 3094-0) Creatinine (test 1.88 mg/dL 0.76-1.27 H code = 2160-0) eGFR If NonAfricn 42 >59 L Am (test code = mL/min/1.73 57362-5) eGFR If Africn Am 48 >59 L [facility] currently (test code = mL/min/1.73 [place] [address]-0) compliance with the current recommendations of the [employer]. [facility] [place] will update re porting as new guidelin es are published from the NKF-ASN Task force.
<br/ >Perfor med by:
[facility] [place] [facility] (HD)

BUN/Creatinine 14 9-20 Ratio (test code = 3097-3) Sodium (test code = 138 mmol/L 870-871 0863-2) Potassium (test 4.2 mmol/L 3.5-5.2 code = 2823-3) Chloride (test code 98 mmol/L 96-106 = 5-0) Carbon Dioxide, 28 mmol/L 20-29 Total (test code = 2027-) Calcium (test code 8.4 mg/dL 8.7-10.2 L = 00394-5) Protein, Total 6.1 g/dL 6.0-8.5 (test code = 2885-2) Albumin (test code 3.0 g/dL 4.0-5.0 L = 1751-7) Globulin, Total 3.1 g/dL 1.5-4.5 (test code = 51541-4) A/G Ratio (test 1.0 1.2-2.2 L code = 1759-0) Bilirubin, Total 0.6 mg/dL 0.0-1.2 (test code = 1975-2) Alkaline 130 IU/L 48-121 H Phosphatase (test Pl ease note code = 6768-6) reference int erval change
<b r/>Perf ormed by:
[facility] ([place])

AST (SGOT) (test 15 IU/L 0-40 code = 1920-8) ALT (SGPT) (test 18 IU/L 0-44 code = 1742-6) [facility] Description: Comp. Metabolic Panel (14)2020-08-16 01:19:00 Test Item Value Reference Range Interpretation Comments Glucose (test code 424 mg/dL 65-99 H = 2345-7) BUN (test code = 27 mg/dL 6-24 H 3094-0) Creatinine (test 1.88 mg/dL 0.76-1.27 H code = 2160-0) eGFR If NonAfricn 42 >59 L Am (test code = mL/min/1.73 15855-1) eGFR If Africn Am 48 >59 L [facility] currently (test code = mL/min/1.73 [place] 6[address]29-5) compliance with the current recommendations of the [employer]. [facility] [place] will update re porting as new guidelin es are published from the NKF-ASN Task force.
<br/ >Perfor med by:
[facility] [place] [facility] (HD)

BUN/Creatinine 14 9-20 Ratio (test code = 3097-3) Sodium (test code = 138 mmol/L 200-330 9259-2) Potassium (test 4.2 mmol/L 3.5-5.2 code = 2823-3) Chloride (test code 98 mmol/L 96-106 = 5-0) Carbon Dioxide, 28 mmol/L 20-29 Total (test code = 2027-) Calcium (test code 8.4 mg/dL 8.7-10.2 L = 65759-3) Protein, Total 6.1 g/dL 6.0-8.5 (test code = 2885-2) Albumin (test code 3.0 g/dL 4.0-5.0 L = 1751-7) Globulin, Total 3.1 g/dL 1.5-4.5 (test code = 04359-0) A/G Ratio (test 1.0 1.2-2.2 L code = 1759-0) Bilirubin, Total 0.6 mg/dL 0.0-1.2 (test code = 1975-2) Alkaline 130 IU/L 48-121 H Phosphatase (test Pl ease note code = 6768-6) reference int erval change
<b r/>Perf ormed by:
[facility] ([place])

AST (SGOT) (test 15 IU/L 0-40 code = 1920-8) ALT (SGPT) (test 18 IU/L 0-44 code = 1742-6) [facility]: Comp. Metabolic Panel (14)2020-08-16 01:19:00 Test Item Value Reference Range Interpretation Comments Glucose (test code 424 mg/dL 65-99 H = 2345-7) BUN (test code = 27 mg/dL 6-24 H 3094-0) Creatinine (test 1.88 mg/dL 0.76-1.27 H code = 2160-0) eGFR If NonAfricn 42 >59 L Am (test code = mL/min/1.73 02025-8) eGFR If Africn Am 48 >59 L [facility] currently (test code = mL/min/1.73 [place] 58336-8) compliance with the current recommendations of the [employer]. [facility] [place] will update re porting as new guidelin es are published from the NKF-ASN Task force.
<br/ >Perfor med by:
[facility] [place] [facility] ([place])

BUN/Creatinine 14 9-20 Ratio (test code = 3097-3) Sodium (test code = 138 mmol/L 710-259 6779-2) Potassium (test 4.2 mmol/L 3.5-5.2 code = 2823-3) Chloride (test code 98 mmol/L 96-106 = 5-0) Carbon Dioxide, 28 mmol/L 20-29 Total (test code = 2027-) Calcium (test code 8.4 mg/dL 8.7-10.2 L = 90408-1) Protein, Total 6.1 g/dL 6.0-8.5 (test code = 2885-2) Albumin (test code 3.0 g/dL 4.0-5.0 L = 1751-7) Globulin, Total 3.1 g/dL 1.5-4.5 (test code = 24915-4) A/G Ratio (test 1.0 1.2-2.2 L code = 1759-0) Bilirubin, Total 0.6 mg/dL 0.0-1.2 (test code = 1975-2) Alkaline 130 IU/L 48-121 H Phosphatase (test Pl ease note code = 6768-6) reference int erval change
<b r/>Perf ormed by:
[facility] ([place])

AST (SGOT) (test 15 IU/L 0-40 code = 1920-8) ALT (SGPT) (test 18 IU/L 0-44 code = 1742-6) [facility] Description: Comp. Metabolic Panel (14)2020-08-16 01:19:00 Test Item Value Reference Range Interpretation Comments Glucose (test code 424 mg/dL 65-99 H = 2345-7) BUN (test code = 27 mg/dL 6-24 H 3094-0) Creatinine (test 1.88 mg/dL 0.76-1.27 H code = 2160-0) eGFR If NonAfricn 42 >59 L Am (test code = mL/min/1.73 89129-6) eGFR If Africn Am 48 >59 L [facility] currently (test code = mL/min/1.73 [place] 08[address]-6) compliance with the current recommendations of the [employer]. [facility] [place] will update re porting as new guidelin es are published from the NKF-ASN Task force.
<br/ >Perfor med by:
[facility] [place] [facility] (HD)

BUN/Creatinine 14 9-20 Ratio (test code = 3097-3) Sodium (test code = 138 mmol/L 166-923 5850-2) Potassium (test 4.2 mmol/L 3.5-5.2 code = 2823-3) Chloride (test code 98 mmol/L 96-106 = 2075-0) Carbon Dioxide, 28 mmol/L 20-29 Total (test code = 2027-) Calcium (test code 8.4 mg/dL 8.7-10.2 L = 57454-4) Protein, Total 6.1 g/dL 6.0-8.5 (test code = 2885-2) Albumin (test code 3.0 g/dL 4.0-5.0 L = 1751-7) Globulin, Total 3.1 g/dL 1.5-4.5 (test code = 86150-7) A/G Ratio (test 1.0 1.2-2.2 L code [...] >59 L Am (test code = mL/min/1.73 98285-6) eGFR If Africn Am 48 >59 L [facility] currently (test code = mL/min/1.73 [place] [address]-1) compliance with the current recommendations of the [employer]. [facility] [place] will update re porting as new guidelin es are published from the NKF-ASN Task force.
<br/ >Perfor med by:
[facility] [place] [facility] (HD)

BUN/Creatinine 14 9-20 Ratio (test code = 3097-3) Sodium (test code = 138 mmol/L 983-133 2730-2) Potassium (test 4.2 mmol/L 3.5-5.2 code = 2823-3) Chloride (test code 98 mmol/L 96-106 = 2075-0) Carbon Dioxide, 28 mmol/L 20-29 Total (test code = 8-9) Calcium (test code 8.4 mg/dL 8.7-10.2 L = 41547-8) Protein, Total 6.1 g/dL 6.0-8.5 (test code = 2885-2) Albumin (test code 3.0 g/dL 4.0-5.0 L = 1751-7) Globulin, Total 3.1 g/dL 1.5-4.5 (test code = 53361-4) A/G Ratio (test 1.0 1.2-2.2 L code = 1759-0) Bilirubin, Total 0.6 mg/dL 0.0-1.2 (test code = 1975-2) Alkaline 130 IU/L 48-121 H Phosphatase (test Pl ease note code = 6768-6) reference int erval change
<b r/>Perf ormed by:
[facility] ([place])

AST (SGOT) (test 15 IU/L 0-40 code = 1920-8) ALT (SGPT) (test 18 IU/L 0-44 code = 1742-6) [facility]: Comp. Metabolic Panel (14)2020-08-16 01:19:00 Test Item Value Reference Range Interpretation Comments Glucose (test code 424 mg/dL 65-99 H = 2345-7) BUN (test code = 27 mg/dL 6-24 H 3094-0) Creatinine (test 1.88 mg/dL 0.76-1.27 H code = 2160-0) eGFR If NonAfricn 42 >59 L Am (test code = mL/min/1.73 11147-3) eGFR If Africn Am 48 >59 L [facility] currently (test code = mL/min/1.73 [place] 57107-6) compliance with the current recommendations of the [employer]. [facility] [place] will update re porting as new guidelin es are published from the NKF-ASN Task force.
<br/ >Perfor med by:
[facility] [place] [facility] (HD)

BUN/Creatinine 14 9-20 Ratio (test code = 3097-3) Sodium (test code = 138 mmol/L 738-729 9952-2) Potassium (test 4.2 mmol/L 3.5-5.2 code = 2823-3) Chloride (test code 98 mmol/L 96-106 = 2075-0) Carbon Dioxide, 28 mmol/L 20-29 Total (test code = 2027-9) Calcium (test code 8.4 mg/dL 8.7-10.2 L = 37867-4) Protein, Total 6.1 g/dL 6.0-8.5 (test code = 2885-2) Albumin (test code 3.0 g/dL 4.0-5.0 L = 1751-7) Globulin, Total 3.1 g/dL 1.5-4.5 (test code = 25372-2) A/G Ratio (test 1.0 1.2-2.2 L code [...] >59 L Am (test code = mL/min/1.73 04713-0) eGFR If Africn Am 48 >59 L [facility] currently (test code = mL/min/1.73 [place] 744[address]-7) compliance with the current recommendations of the [employer]. [facility] [place] will update re porting as new guidelin es are published from the NKF-ASN Task force.
<br/ >Perfor med by:
[facility] [place] [facility] (HD)

BUN/Creatinine 14 9-20 Ratio (test code = 3097-3) Sodium (test code = 138 mmol/L 350-400 6993-2) Potassium (test 4.2 mmol/L 3.5-5.2 code = 2823-3) Chloride (test code 98 mmol/L 96-106 = 2075-0) Carbon Dioxide, 28 mmol/L 20-29 Total (test code = 2027-) Calcium (test code 8.4 mg/dL 8.7-10.2 L = 52216-8) Protein, Total 6.1 g/dL 6.0-8.5 (test code = 2885-2) Albumin (test code 3.0 g/dL 4.0-5.0 L = 1751-7) Globulin, Total 3.1 g/dL 1.5-4.5 (test code = 84019-8) A/G Ratio (test 1.0 1.2-2.2 L code [...] >59 L Am (test code = mL/min/1.73 74179-9) eGFR If Africn Am 48 >59 L [facility] currently (test code = mL/min/1.73 [place] 12772-7) compliance with the current recommendations of the [employer]. [facility] [place] will update re porting as new guidelin es are published from the NKF-ASN Task force.
<br/ >Perfor med by:
[facility] [place] [facility] (HD)

BUN/Creatinine 14 9-20 Ratio (test code = 3097-3) Sodium (test code = 138 mmol/L 610-510 7166-2) Potassium (test 4.2 mmol/L 3.5-5.2 code = 2823-3) Chloride (test code 98 mmol/L 96-106 = 5-0) Carbon Dioxide, 28 mmol/L 20-29 Total (test code = 8-9) Calcium (test code 8.4 mg/dL 8.7-10.2 L = 48513-6) Protein, Total 6.1 g/dL 6.0-8.5 (test code = 2885-2) Albumin (test code 3.0 g/dL 4.0-5.0 L = 1751-7) Globulin, Total 3.1 g/dL 1.5-4.5 (test code = 99671-0) A/G Ratio (test 1.0 1.2-2.2 L code = 1759-0) Bilirubin, Total 0.6 mg/dL 0.0-1.2 (test code = 1975-2) Alkaline 130 IU/L 48-121 H Phosphatase (test Pl ease note code = 6768-6) reference int erval change
<b r/>Perf ormed by:
[facility] ([place])

AST (SGOT) (test 15 IU/L 0-40 code = 1920-8) ALT (SGPT) (test 18 IU/L 0-44 code = 1742-6) [facility] Description: Comp. Metabolic Panel (14)2020-08-16 01:19:00 Test Item Value Reference Range Interpretation Comments Glucose (test code 424 mg/dL 65-99 H = 2345-7) BUN (test code = 27 mg/dL 6-24 H 3094-0) Creatinine (test 1.88 mg/dL 0.76-1.27 H code = 2160-0) eGFR If NonAfricn 42 >59 L Am (test code = mL/min/1.73 26549-9) eGFR If Africn Am 48 >59 L [facility] currently (test code = mL/min/1.73 [place] [address]-7) compliance with the current recommendations of the [employer]. [facility] [place] will update re porting as new guidelin es are published from the NKF-ASN Task force.
<br/ >Perfor med by:
[facility] (HD)

BUN/Creatinine 14 9-20 Ratio (test code = 3097-3) Sodium (test code = 138 mmol/L 086-471 7191-2) Potassium (test 4.2 mmol/L 3.5-5.2 code = 2823-3) Chloride (test code 98 mmol/L 96-106 = 2075-0) Carbon Dioxide, 28 mmol/L 20-29 Total (test code = 2027-) Calcium (test code 8.4 mg/dL 8.7-10.2 L = 60225-4) Protein, Total 6.1 g/dL 6.0-8.5 (test code = 2885-2) Albumin (test code 3.0 g/dL 4.0-5.0 L = 1751-7) Globulin, Total 3.1 g/dL 1.5-4.5 (test code = 67690-7) A/G Ratio (test 1.0 1.2-2.2 L code = 1759-0) Bilirubin, Total 0.6 mg/dL 0.0-1.2 (test code = 1975-2) Alkaline 130 IU/L 48-121 H Phosphatase (test Pl ease note code = 6768-6) reference int erval change
<b r/>Perf ormed by:
[facility] [place] ([place])

AST (SGOT) (test 15 IU/L 0-40 code = 1920-8) ALT (SGPT) (test 18 IU/L 0-44 code = 1742-6) [facility] Description: Hemoglobin A1c/Hemoglobin.total in Blood 2020-08-16 00:35:00 Test Item Value Reference Range Interpretation Comments Hemoglobin A1c (test code 11.6 % 4.8-5.6 H = 4548-4) . Prediabetes: 5. 7 - 6.4 Diabete s: >6.4 Glycemi c control for niall lts with diabetes: <7.0

P erforme d by:
[facility] [place] ([place])

[facility] Description: Hemoglobin A1c/Hemoglobin.total in Blood 2020-08-16 00:35:00 Test Item Value Reference Range Interpretation Comments Hemoglobin A1c (test code 11.6 % 4.8-5.6 H = 4548-4) . Prediabetes: 5. 7 - 6.4 Diabete s: >6.4 Glycemi c control for niall lts with diabetes: <7.0

P erforme d by:
[facility] [place] (HD)

[facility] Description: Hemoglobin A1c/Hemoglobin.total in Blood 2020-08-16 00:35:00 Test Item Value Reference Range Interpretation Comments Hemoglobin A1c (test code 11.6 % 4.8-5.6 H = 4548-4) . Prediabetes: 5. 7 - 6.4 Diabete s: >6.4 Glycemi c control for niall lts with diabetes: <7.0

P erforme d by:
[facility] [place] ([place])

[facility] Description: Hemoglobin A1c/Hemoglobin.total in Blood 2020-08-16 00:35:00 Test Item Value Reference Range Interpretation Comments Hemoglobin A1c (test code 11.6 % 4.8-5.6 H = 4548-4) . Prediabetes: 5. 7 - 6.4 Diabete s: >6.4 Glycemi c control for niall lts with diabetes: <7.0

P erforme d by:
[facility] [place] (HD)

[facility] Description: Hemoglobin A1c/Hemoglobin.total in Blood 2020-08-16 00:35:00 Test Item Value Reference Range Interpretation Comments Hemoglobin A1c (test code 11.6 % 4.8-5.6 H = 4548-4) . Prediabetes: 5. 7 - 6.4 Diabete s: >6.4 Glycemi c control for niall lts with diabetes: <7.0

P erforme d by:
[facility] [place] ([place])

[facility] Description: Hemoglobin A1c/Hemoglobin.total in Blood 2020-08-16 00:35:00 Test Item Value Reference Range Interpretation Comments Hemoglobin A1c (test code 11.6 % 4.8-5.6 H = 4548-4) . Prediabetes: 5. 7 - 6.4 Diabete s: >6.4 Glycemi c control for niall lts with diabetes: <7.0

P erforme d by:
[facility] [place] ([place])

[facility] Description: Hemoglobin A1c/Hemoglobin.total in Blood 2020-08-16 00:35:00 Test Item Value Reference Range Interpretation Comments Hemoglobin A1c (test code 11.6 % 4.8-5.6 H = 4548-4) . Prediabetes: 5. 7 - 6.4 Diabete s: >6.4 Glycemi c control for niall lts with diabetes: <7.0

P erforme d by:
[facility] [place] ([place])

[facility] Description: Hemoglobin A1c/Hemoglobin.total in Blood 2020-08-16 00:35:00 Test Item Value Reference Range Interpretation Comments Hemoglobin A1c (test code 11.6 % 4.8-5.6 H = 4548-4) . Prediabetes: 5. 7 - 6.4 Diabete s: >6.4 Glycemi c control for niall lts with diabetes: <7.0

P erforme d by:
[facility] [place] ([place])

[facility] Description: Hemoglobin A1c/Hemoglobin.total in Blood 2020-08-16 00:35:00 Test Item Value Reference Range Interpretation Comments Hemoglobin A1c (test code 11.6 % 4.8-5.6 H = 4548-4) . Prediabetes: 5. 7 - 6.4 Diabete s: >6.4 Glycemi c control for niall lts with diabetes: <7.0

P erforme d by:
[facility] [place] ([place])

[facility] Description: Hemoglobin A1c/Hemoglobin.total in Blood 2020-08-16 00:35:00 Test Item Value Reference Range Interpretation Comments Hemoglobin A1c (test code 11.6 % 4.8-5.6 H = 4548-4) . Prediabetes: 5. 7 - 6.4 Diabete s: >6.4 Glycemi c control for niall lts with diabetes: <7.0

P erforme d by:
[facility] [place] ([place])

[facility] Description: Hemoglobin A1c/Hemoglobin.total in Blood 2020-08-16 00:35:00 Test Item Value Reference Range Interpretation Comments Hemoglobin A1c (test code 11.6 % 4.8-5.6 H = 4548-4) . Prediabetes: 5. 7 - 6.4 Diabete s: >6.4 Glycemi c control for niall lts with diabetes: <7.0

P erforme d by:
[facility] [place] ([place])

[facility] Description: Hemoglobin A1c/Hemoglobin.total in Blood 2020-08-16 00:35:00 Test Item Value Reference Range Interpretation Comments Hemoglobin A1c (test code 11.6 % 4.8-5.6 H = 4548-4) . Prediabetes: 5. 7 - 6.4 Diabete s: >6.4 Glycemi c control for niall lts with diabetes: <7.0

P erforme d by:
[facility] [place] ([place])

[facility] Description: Hemoglobin A1c/Hemoglobin.total in Blood 2020-08-16 00:35:00 Test Item Value Reference Range Interpretation Comments Hemoglobin A1c (test code 11.6 % 4.8-5.6 H = 4548-4) . Prediabetes: 5. 7 - 6.4 Diabete s: >6.4 Glycemi c control for niall lts with diabetes: <7.0

P erforme d by:
[facility] [place] ()

[facility] Description: Hemoglobin A1c/Hemoglobin.total in Blood 2020-08-16 00:35:00 Test Item Value Reference Range Interpretation Comments Hemoglobin A1c (test code 11.6 % 4.8-5.6 H = 4548-4) . Prediabetes: 5. 7 - 6.4 Diabete s: >6.4 Glycemi c control for niall lts with diabetes: <7.0

P erforme d by:
[facility] [place] ([place])

[facility] Description: Hemoglobin A1c/Hemoglobin.total in Blood 2020-08-16 00:35:00 Test Item Value Reference Range Interpretation Comments Hemoglobin A1c (test code 11.6 % 4.8-5.6 H = 4548-4) . Prediabetes: 5. 7 - 6.4 Diabete s: >6.4 Glycemi c control for niall lts with diabetes: <7.0

P erforme d by:
[facility] [place] ([place])

[facility] Description: Hemoglobin A1c/Hemoglobin.total in Blood 2020-08-16 00:35:00 Test Item Value Reference Range Interpretation Comments Hemoglobin A1c (test code 11.6 % 4.8-5.6 H = 4548-4) . Prediabetes: 5. 7 - 6.4 Diabete s: >6.4 Glycemi c control for niall lts with diabetes: <7.0

P erforme d by:
[facility] [place] ([place])

[facility] Description: Hemoglobin A1c/Hemoglobin.total in Blood 2020-08-16 00:35:00 Test Item Value Reference Range Interpretation Comments Hemoglobin A1c (test code 11.6 % 4.8-5.6 H = 4548-4) . Prediabetes: 5. 7 - 6.4 Diabete s: >6.4 Glycemi c control for niall lts with diabetes: <7.0

P erforme d by:
[facility] [place] ([place])

[facility] Description: Hemoglobin A1c/Hemoglobin.total in Blood 2020-08-16 00:35:00 Test Item Value Reference Range Interpretation Comments Hemoglobin A1c (test code 11.6 % 4.8-5.6 H = 4548-4) . Prediabetes: 5. 7 - 6.4 Diabete s: >6.4 Glycemi c control for niall lts with diabetes: <7.0

P erforme d by:
[facility] [place] ([place])

[facility] Description: Hemoglobin A1c/Hemoglobin.total in Blood 2020-08-16 00:35:00 Test Item Value Reference Range Interpretation Comments Hemoglobin A1c (test code 11.6 % 4.8-5.6 H = 4548-4) . Prediabetes: 5. 7 - 6.4 Diabete s: >6.4 Glycemi c control for niall lts with diabetes: <7.0

P erforme d by:
[facility] [place] ([place])

[facility] Description: Hemoglobin A1c/Hemoglobin.total in Blood 2020-08-16 00:35:00 Test Item Value Reference Range Interpretation Comments Hemoglobin A1c (test code 11.6 % 4.8-5.6 H = 4548-4) . Prediabetes: 5. 7 - 6.4 Diabete s: >6.4 Glycemi c control for niall lts with diabetes: <7.0

P erforme d by:
[facility] ([place])

[facility] and screen, [id number] 19:24:00 Test Item Value Reference Range Interpretation Comments ABO/RH AUTOMATED (BEAKER) (test A POSITIVE ECHO code = 2260) Ab Scrn (test code = 890-4) [facility] ayugzwsor5194-96-55 19:24:00 Test Item Value Reference Range Interpretation Comments ABO/RH AUTOMATED (BEAKER) (test A POSITIVE ECHO code = 2260) Ab Scrn (test code = 890-4) [facility], evskablju5690-82-47 19:24:00 Test Item Value Reference Range Interpretation Comments ABO/RH AUTOMATED (BEAKER) (test A POSITIVE ECHO code = 2260) Ab Scrn (test code = 890-4) [facility], puuyfmafk7302-59-21 19:24:00 Test Item Value Reference Range Interpretation Comments ABO/RH AUTOMATED (BEAKER) (test A POSITIVE ECHO code = 2260) Ab Scrn (test code = 890-4) [facility], xctouxgpb5062-56-14 19:24:00 Test Item Value Reference Range Interpretation Comments ABO/RH AUTOMATED (BEAKER) (test A POSITIVE ECHO code = 2260) Ab Scrn (test code = 890-4) [facility], ebrirpxeb3080-78-04 19:24:00 Test Item Value Reference Range Interpretation Comments ABO/RH AUTOMATED (BEAKER) (test A POSITIVE ECHO code = 2260) Ab Scrn (test code = 890-4) [facility], uuvzsnshm1321-93-15 19:24:00 Test Item Value Reference Range Interpretation Comments ABO/RH AUTOMATED (BEAKER) (test A POSITIVE ECHO code = 2260) Ab Scrn (test code = 890-4) [facility]CHO [facility] [id number] 19:12:00 Test Item Value Reference Range Interpretation Comments Protein, Total (test 6.9 See_Comment [Autom ated code = 2885-2) message] The system which generated this result transmit josé luis reference range : 6.0 - 8.5 gm/dL . The reference range was not u sed to interpret th is result as normal/abnormal . Albumin (test code = 3.3 g/dL 3.5-5 L 52965-1) Alkaline Phosphatase 97 U/L 30-115 (test code = 6768-6) Total Bilirubin (test 0.9 mg/dL 0.1-1.2 code = 1975-2) Sodium (test code = 137 meq/L 976-150 9002-2) Potassium (test code 4.5 meq/L 3.6-5.5 = 2823-3) Chloride (test code = 100 meq/L 98-106 2075-0) CO2 (test code = 26 meq/L 20-29 2028-9) BUN (test code = 51 mg/dL 10-26 H 3094-0) Creatinine (test code 1.87 mg/dL 0.5-1.2 H = 2160-0) Glucose (test code = 267 mg/dL 70-110 H 2345-7) Calcium (test code = 9.1 mg/dL 8.5-10.5 09349-9) AST (test code = 18 U/L 5-40 1920-8) ALT (test code = 23 U/L 5-50 1742-6) EGFR (test code = 39 mL/min/1.73 [place] [address]-7) NOT ACCURATE CREATININE CLEARANCE IN PREDICTING GLOMERULAR FILTRATION RATE . ESTIMATED GFR I S NOT APPLICABLE FOR DIALYSIS PATIEN TS. ISSA (test code = ISSA) Director Supply ID - [id number] r ID - [id number] r ID - [id number] r ID - [id number] r ID - [id number] r ID - [id number] r ID - [id number] r ID - [id number] r ID - [id number] r ID - [id number] r ID - [id number] r ID - [id number] r ID - [id number] r ID - [id number] r ID - [id number] r ID - [id number] r ID - [id number] r ID - [id number] r ID - [id number] Lab Interpretation Abnormal (test code = 00190-1) [facility] [id number] 19:12:00 Test Item Value Reference Range Interpretation Comments Protein, Total (test 6.9 See_Comment [Autom ated code = 2885-2) message] The system which generated this result transmit josé luis reference range : 6.0 - 8.5 gm/dL . The reference range was not u sed to interpret th is result as normal/abnormal . Albumin (test code = 3.3 g/dL 3.5-5 L 69522-2) Alkaline Phosphatase 97 U/L 30-115 (test code = 6768-6) Total Bilirubin (test 0.9 mg/dL 0.1-1.2 code = 1974-2) Sodium (test code = 137 meq/L 406-306 0390-2) Potassium (test code 4.5 meq/L 3.6-5.5 = 2823-3) Chloride (test code = 100 meq/L 98-106 5-0) CO2 (test code = 26 meq/L 20-29 8-9) BUN (test code = 51 mg/dL 10-26 H 3094-0) Creatinine (test code 1.87 mg/dL 0.5-1.2 H = 2160-0) Glucose (test code = 267 mg/dL 70-110 H 2345-7) Calcium (test code = 9.1 mg/dL 8.5-10.5 42242-7) AST (test code = 18 U/L 5-40 1920-8) ALT (test code = 23 U/L 5-50 1742-6) EGFR (test code = 39 mL/min/1.73 [place] [address]-3) NOT ACCURATE CREATININE CLEARANCE IN PREDICTING GLOMERULAR FILTRATION RATE . ESTIMATED GFR I S NOT APPLICABLE FOR DIALYSIS PATIEN TS. ISSA (test code = ISSA) Director Supply ID - [id number] r ID - [id number] r ID - [id number] r ID - [id number] r ID - [id number] r ID - [id number] r ID - [id number] r ID - [id number] r ID - [id number] r ID - [id number] r ID - [id number] r ID - [id number] r ID - [id number] r ID - [id number] r ID - [id number] r ID - [id number] r ID - [id number] r ID - [id number] r ID - [id number] Lab Interpretation Abnormal (test code = 90441-6) [facility] [id number] 19:12:00 Test Item Value Reference Range Interpretation Comments Protein, Total (test 6.9 See_Comment [Autom ated code = 2885-2) message] The system which generated this result transmit josé luis reference range : 6.0 - 8.5 gm/dL . The reference range was not u sed to interpret th is result as normal/abnormal . Albumin (test code = 3.3 g/dL 3.5-5 L 19104-0) Alkaline Phosphatase 97 U/L 30-115 (test code = 6768-6) Total Bilirubin (test 0.9 mg/dL 0.1-1.2 code = 1974-2) Sodium (test code = 137 meq/L 526-669 0085-2) Potassium (test code 4.5 meq/L 3.6-5.5 = 2823-3) Chloride (test code = 100 meq/L 98-106 2074-0) CO2 (test code = 26 meq/L 20-29 2027-9) BUN (test code = 51 mg/dL 10-26 H 3094-0) Creatinine (test code 1.87 mg/dL 0.5-1.2 H = 2160-0) Glucose (test code = 267 mg/dL 70-110 H 2345-7) Calcium (test code = 9.1 mg/dL 8.5-10.5 78087-4) AST (test code = 18 U/L 5-40 1920-8) ALT (test code = 23 U/L 5-50 1742-6) EGFR (test code = 39 mL/min/1.73 [place] [address]-2) NOT ACCURATE CREATININE CLEARANCE IN PREDICTING GLOMERULAR FILTRATION RATE . ESTIMATED GFR I S NOT APPLICABLE FOR DIALYSIS PATIEN TS. ISSA (test code = ISSA) Director Supply ID - [id number] r ID - [id number] r ID - [id number] r ID - [id number] r ID - [id number] r ID - [id number] r ID - [id number] r ID - [id number] r ID - [id number] r ID - [id number] r ID - [id number] r ID - [id number] r ID - [id number] r ID - [id number] r ID - [id number] r ID - [id number] r ID - [id number] r ID - [id number] r ID - [id number] Lab Interpretation Abnormal (test code = 79770-5) [facility] [id number] 19:12:00 Test Item Value Reference Range Interpretation Comments Protein, Total (test 6.9 See_Comment [Autom ated code = 2885-2) message] The system which generated this result transmit josé luis reference range : 6.0 - 8.5 gm/dL . The reference range was not u sed to interpret th is result as normal/abnormal . Albumin (test code = 3.3 g/dL 3.5-5 L 51107-3) Alkaline Phosphatase 97 U/L 30-115 (test code = 6768-6) Total Bilirubin (test 0.9 mg/dL 0.1-1.2 code = 1975-2) Sodium (test code = 137 meq/L 513-703 5198-2) Potassium (test code 4.5 meq/L 3.6-5.5 = 2823-3) Chloride (test code = 100 meq/L 98-106 2075-0) CO2 (test code = 26 meq/L 20-29 8-9) BUN (test code = 51 mg/dL 10-26 H 3094-0) Creatinine (test code 1.87 mg/dL 0.5-1.2 H = 2160-0) Glucose (test code = 267 mg/dL 70-110 H 2345-7) Calcium (test code = 9.1 mg/dL 8.5-10.5 15735-9) AST (test code = 18 U/L 5-40 1920-8) ALT (test code = 23 U/L 5-50 1742-6) EGFR (test code = 39 mL/min/1.73 [place] [address]-0) NOT ACCURATE CREATININE CLEARANCE IN PREDICTING GLOMERULAR FILTRATION RATE . ESTIMATED GFR I S NOT APPLICABLE FOR DIALYSIS PATIEN TS. ISSA (test code = ISSA) Director Supply ID - [id number] r ID - [id number] r ID - [id number] r ID - [id number] r ID - [id number] r ID - [id number] r ID - [id number] r ID - [id number] r ID - [id number] r ID - [id number] r ID - [id number] r ID - [id number] r ID - [id number] r ID - [id number] r ID - [id number] r ID - [id number] r ID - [id number] r ID - [id number] r ID - [id number] Lab Interpretation Abnormal (test code = 74077-3) [facility] [id number] 19:12:00 Test Item Value Reference Range Interpretation Comments Protein, Total (test 6.9 See_Comment [Autom ated code = 2885-2) message] The system which generated this result transmit josé luis reference range : 6.0 - 8.5 gm/dL . The reference range was not u sed to interpret th is result as normal/abnormal . Albumin (test code = 3.3 g/dL 3.5-5.0 L 11252-1) Alkaline Phosphatase 97 U/L 30-115 (test code = 6768-6) Total Bilirubin (test 0.9 mg/dL 0.1-1.2 code = 1974-2) Sodium (test code = 137 meq/L 523-135 7373-2) Potassium (test code 4.5 meq/L 3.6-5.5 = 2823-3) Chloride (test code = 100 meq/L 98-106 5-0) CO2 (test code = 26 meq/L 20-29 8-9) BUN (test code = 51 mg/dL 10-26 H 3094-0) Creatinine (test code 1.87 mg/dL 0.50-1.20 H = 2160-0) Glucose (test code = 267 mg/dL 70-110 H 2345-7) Calcium (test code = 9.1 mg/dL 8.5-10.5 53398-2) AST (test code = 18 U/L 5-40 1920-8) ALT (test code = 23 U/L 5-50 1742-6) EGFR (test code = 39 mL/min/1.73 [place] [address]-3) NOT ACCURATE CREATININE CLEARANCE IN PREDICTING GLOMERULAR FILTRATION RATE . ESTIMATED GFR I S NOT APPLICABLE FOR DIALYSIS PATIEN TS. ISSA (test code = ISSA) Director Supply ID - [id number] r ID - [id number] r ID - [id number] r ID - [id number] r ID - [id number] r ID - [id number] r ID - [id number] r ID - [id number] r ID - [id number] r ID - [id number] r ID - [id number] r ID - [id number] r ID - [id number] r ID - [id number] r ID - [id number] r ID - [id number] r ID - [id number] r ID - [id number] r ID - [id number] Lab Interpretation Abnormal (test code = 98792-0) [facility] [id number] 19:12:00 Test Item Value Reference Range Interpretation Comments Protein, Total (test 6.9 See_Comment [Autom ated code = 2885-2) message] The system which generated this result transmit josé luis reference range : 6.0 - 8.5 gm/dL . The reference range was not u sed to interpret th is result as normal/abnormal . Albumin (test code = 3.3 g/dL 3.5-5.0 L 23965-4) Alkaline Phosphatase 97 U/L 30-115 (test code = 6768-6) Total Bilirubin (test 0.9 mg/dL 0.1-1.2 code = 1974-2) Sodium (test code = 137 meq/L 593-713 4004-2) Potassium (test code 4.5 meq/L 3.6-5.5 = 2823-3) Chloride (test code = 100 meq/L 98-106 2075-0) CO2 (test code = 26 meq/L 20-29 2028-9) BUN (test code = 51 mg/dL 10-26 H 3094-0) Creatinine (test code 1.87 mg/dL 0.50-1.20 H = 2160-0) Glucose (test code = 267 mg/dL 70-110 H 2345-7) Calcium (test code = 9.1 mg/dL 8.5-10.5 84842-0) AST (test code = 18 U/L 5-40 1920-8) ALT (test code = 23 U/L 5-50 1742-6) EGFR (test code = 39 mL/min/1.73 [place] [address]-9) NOT ACCURATE CREATININE CLEARANCE IN PREDICTING GLOMERULAR FILTRATION RATE . ESTIMATED GFR I S NOT APPLICABLE FOR DIALYSIS PATIEN TS. ISSA (test code = ISSA) Director Supply ID - [id number] r ID - [id number] r ID - [id number] r ID - [id number] r ID - [id number] r ID - [id number] r ID - [id number] r ID - [id number] r ID - [id number] r ID - [id number] r ID - [id number] r ID - [id number] r ID - [id number] r ID - [id number] r ID - [id number] r ID - [id number] r ID - [id number] r ID - [id number] r ID - [id number] Lab Interpretation Abnormal (test code = 47348-8) [facility] [id number] 19:12:00 Test Item Value Reference Range Interpretation Comments Protein, Total (test 6.9 See_Comment [Autom ated code = 2885-2) message] The system which generated this result transmit josé luis reference range : 6.0 - 8.5 gm/dL . The reference range was not u sed to interpret th is result as normal/abnormal . Albumin (test code = 3.3 g/dL 3.5-5.0 L 94942-4) Alkaline Phosphatase 97 U/L 30-115 (test code = 6768-6) Total Bilirubin (test 0.9 mg/dL 0.1-1.2 code = 1975-2) Sodium (test code = 137 meq/L 440-514 6371-2) Potassium (test code 4.5 meq/L 3.6-5.5 = 2823-3) Chloride (test code = 100 meq/L 98-106 2075-0) CO2 (test code = 26 meq/L 20-29 2028-9) BUN (test code = 51 mg/dL 10-26 H 3094-0) Creatinine (test code 1.87 mg/dL 0.50-1.20 H = 2160-0) Glucose (test code = 267 mg/dL 70-110 H 2345-7) Calcium (test code = 9.1 mg/dL 8.5-10.5 80037-6) AST (test code = 18 U/L 5-40 1920-8) ALT (test code = 23 U/L 5-50 1742-6) EGFR (test code = 39 mL/min/1.73 [place] [address]-4) NOT ACCURATE CREATININE CLEARANCE IN PREDICTING GLOMERULAR FILTRATION RATE . ESTIMATED GFR I S NOT APPLICABLE FOR DIALYSIS PATIEN TS. ISSA (test code = ISSA) Director Supply ID - [id number] r ID - [id number] r ID - [id number] r ID - [id number] r ID - [id number] r ID - [id number] r ID - [id number] r ID - [id number] r ID - [id number] r ID - [id number] r ID - [id number] r ID - [id number] r ID - [id number] r ID - [id number] r ID - [id number] r ID - [id number] r ID - [id number] r ID - [id number] r ID - [id number] Lab Interpretation Abnormal (test code = 35213-2) [facility] [id number] 19:12:00 Test Item Value Reference Range Interpretation [...] S NOT APPLICABLE FOR DIALYSIS PATIEN TS. Director Supply ID - [id number] ID - [id number] ID - [id number] ID - [id number] ID - [id number] ID - [id number] ID - [id number] ID - [id number] ID - [id number] ID - [id number] ID - [id number] ID - [id number] ID - [id number] ID - [id number] ID - [id number] ID - [id number] ID - [id number] ID - [id number] ID - [id number] acid, ekforg0524-85-83 19:05:00 Test Item Value Reference Range Interpretation Comments Lactate, Venous (test code 1.18 mmol/L 0.5-2 = 2872) ISSA (test code = ISSA) Director Supply ID - [id number] ID - [id number] ID - [id number] ID - [id number] Lab Interpretation (test Normal code = 54078-7) [facility], yyrihp4729-29-54 19:05:00 Test Item Value Reference Range Interpretation Comments Lactate, Venous (test code 1.18 mmol/L 0.5-2 = 2872) ISSA (test code = ISSA) Director Supply ID - [id number] ID - [id number] ID - [id number] ID - [id number] Lab Interpretation (test Normal code = 99063-2) [facility], [id number] 19:05:00 Test Item Value Reference Range Interpretation Comments Lactate, Venous (test code 1.18 mmol/L 0.5-2 = 2872) ISSA (test code = ISSA) Director Supply ID - [id number] ID - [id number] ID - [id number] ID - [id number] Lab Interpretation (test Normal code = 20773-7) [facility], gxvlfa4784-55-63 19:05:00 Test Item Value Reference Range Interpretation Comments Lactate, Venous (test code 1.18 mmol/L 0.5-2 = 2872) ISSA (test code = ISSA) Director Supply ID - [id number] ID - [id number] ID - [id number] ID - [id number] Lab Interpretation (test Normal code = 61222-7) [facility] buzdxv4445-89-56 19:05:00 Test Item Value Reference Range Interpretation Comments Lactate, Venous (test code 1.18 mmol/L 0.50-2.00 = 2872) ISSA (test code = ISSA) Director Supply ID - [id number] ID - [id number] ID - [id number] ID - [id number] Lab Interpretation (test Normal code = 10941-7) [facility], nkejod4263-62-29 19:05:00 Test Item Value Reference Range Interpretation Comments Lactate, Venous (test code 1.18 mmol/L 0.50-2.00 = 2872) ISSA (test code = ISSA) Director Supply ID - [id number] ID - [id number] ID - [id number] ID - [id number] Lab Interpretation (test Normal code = 00554-7) [facility] [id number] 19:05:00 Test Item Value Reference Range Interpretation Comments Lactate, Venous (test code 1.18 mmol/L 0.50-2.00 = 2872) ISSA (test code = ISSA) Director Supply ID - [id number] ID - [id number] ID - [id number] ID - [id number] Lab Interpretation (test Normal code = 73494-6) [facility] [id number] 19:05:00 Test Item Value Reference Range Interpretation Comments LACTATE BLOOD VENOUS (2) (BEAKER) 1.18 mmol/L 0.50-<2.00 (test code = 2872) Director Supply ID - [id number] ID - [id number] ID - [id number] ID - [id number] 19:02:00 Test Item Value Reference Interpretation Comments [...] valves. Lab Interpretation Abnormal (test code = 51072-9) [id number]:02:00 Test Item Value Reference Interpretation Comments [...] valves. Lab Interpretation Abnormal (test code = 27760-9) [facility][id number] 19:02:00 Test Item Value Reference Interpretation Comments [...] valves. Lab Interpretation Abnormal (test code = 50793-2) [facility]/[id number] 19:02:00 Test Item Value Reference Interpretation Comments [...] valves. Lab Interpretation Abnormal (test code = 56426-0) [facility][id number] 19:02:00 Test Item Value Reference Interpretation Comments [...] valves. Lab Interpretation Abnormal (test code = 86868-8) [facility][id number] 19:02:00 Test Item Value Reference Interpretation Comments [...] valves. Lab Interpretation Abnormal (test code = 10964-8) [facility][id number] 19:02:00 Test Item Value Reference Interpretation Comments [...] valves. Lab Interpretation Abnormal (test code = 34648-5) [facility]/[id number] 19:02:00 Test Item Value Reference Range Interpretation [...] code = 2801) CARDIAC CATH REPORT - [id number] 13:14:50Ordered by an unspecified provider. [facility] - [id number] 13:14:50 Ordered by an unspecified provider.[facility] - [id number] 13:14:50Ordered by an unspecified provider.[facility] - [id number] 13:14:50Ordered by an unspecified provider.[facility] HospitalKappa / lambda light chains, [id number] 10:53:00 Test Item Value Reference Interpretation Comments Range [place] Lt Chain,Free 129.5 mg/L 3.3-19.4 H (test code = 35050-3) Lambda Lt 99.3 mg/L 5.7-26.3 H Chain,Free (test code = 79094-0) [place]/Lambda,Free 1.3 0.26-1.65 Free [place] a/lambda (test code [...] (test code = Performing Lab ISSA) [facility] [place] [address] [place] [address] Awais Cedeno MD, PhD, TOMY Lab Interpretation Abnormal (test code = 70459-8) [facility] lambda light chains, [id number] 10:53:00 Test Item Value Reference Interpretation Comments Range [place] Lt Chain,Free 129.5 mg/L 3.3-19.4 H (test code = 75296-6) Lambda Lt 99.3 mg/L 5.7-26.3 H Chain,Free (test code = 99809-9) [place]/Lambda,Free 1.3 0.26-1.65 Free shant[place] a/lambda (test code [...] (test code = Performing Lab ISSA) [facility] [place] [address] [place] [address] Awais Cedeno MD, PhD, TOMY Lab Interpretation Abnormal (test code = 71075-4) [facility] lambda light chains, [id number] 10:53:00 Test Item Value Reference Interpretation Comments Range [place] Lt Chain,Free 129.5 mg/L 3.3-19.4 H (test code = 94368-2) Lambda Lt 99.3 mg/L 5.7-26.3 H Chain,Free (test code = 39163-0) [place]/Lambda,Free 1.3 0.26-1.65 Free shant[place] a/lambda (test code [...] = Performing Lab ISSA) [facility] [address] [place] [address] Awais Cedeno MD, PhD, TOMY Lab Interpretation Abnormal (test code = 25131-9) [facility] lambda light chains, [id number] 10:53:00 Test Item Value Reference Interpretation Comments Range [place] Lt Chain,Free 129.5 mg/L 3.3-19.4 H (test code = 68331-3) Lambda Lt 99.3 mg/L 5.7-26.3 H Chain,Free (test code = 34450-7) [place]/Lambda,Free 1.3 0.26-1.65 Free [place] a/lambda (test code [...] (test code = Performing Lab ISSA) [facility]Z [facility] [address] [place] [address] Awais Cedeno MD, PhD, TOMY Lab Interpretation Abnormal (test code = 20997-4) [facility] lambda light chains, [id number] 10:53:00 Test Item Value Reference Interpretation Comments Range [place] Lt Chain,Free 129.5 mg/L 3.3-19.4 H (test code = 10675-6) Lambda Lt 99.3 mg/L 5.7-26.3 H Chain,Free (test code = 31284-2) [place]/Lambda,Free 1.3 0.26-1.65 Free shant[place] a/lambda (test code [...] Performing Lab ISSA) [facility] [place] [address] [place] [address] Awais Cedeno MD, PhD, TOMY Lab Interpretation Abnormal (test code = 80270-7) [facility] lambda light chains, [id number] 10:53:00 Test Item Value Reference Interpretation Comments Range [place] Lt Chain,Free 129.5 mg/L 3.3-19.4 H (test code = 40786-1) Lambda Lt 99.3 mg/L 5.7-26.3 H Chain,Free (test code = 62824-7) [place]/Lambda,Free 1.3 0.26-1.65 Free shantell a/lambda (test code [...] = Performing Lab ISSA) [facility] [address] [place] [address] Awais Cedeno MD, PhD, TOMY Lab Interpretation Abnormal (test code = 46889-2) [facility] lambda light chains, [id number] 10:53:00 Test Item Value Reference Interpretation Comments Range [place] Lt Chain,Free 129.5 mg/L 3.3-19.4 H (test code = 91571-3) Lambda Lt 99.3 mg/L 5.7-26.3 H Chain,Free (test code = 16938-9) [place]/Lambda,Free 1.3 0.26-1.65 Free shantell a/lambda (test code [...] = Performing Lab ISSA) [facility] [address] [place] [address] Awais Cedeno MD, PhD, TOMY Lab Interpretation Abnormal (test code = 24102-6) [facility] [id number] 08:14:00 Test Item Value Reference Range Interpretation Comments POC-GLUCOSE METER 107 mg/dL 70-110 : Notified RN/MD: TESTED (BEAKER) (test code AT [facility] [address] = [address]) JONO [facility] [address]: Director Supply/Techni cornelia ID = [id number] for Jerome Garlandankur BASIC METABOLIC [id number] 05:19:00 Test Item Value Reference Range Interpretation [...] S NOT APPLICABLE FOR DIALYSIS PATIEN TS. Director Supply ID - ANSBERTOGOperator ID - ANSBERTOGOperator ID - ANSBERTOGOperator ID - ANSBERTOGOperatorID - ANSBERTOGOperator ID - ANSBERTOGOperator ID - ANSBERTOGOperator ID - ANSBERTOGOperator ID - ANSBERTOGOperator ID - ANSBERTOGOperator ID - ANSBERTOGOperator ID - ANSBERTOGOperator ID - ANSBERTOG CBC W/PLT COUNT & AUTO [id number] 05:05:00 Test Item Value Reference Range Interpretation [...] PERCENT (BEAKER) (test code = 2801) POCT-GLUCOSE [id number] 22:18:00 Test Item Value Reference Range Interpretation Comments POC-GLUCOSE METER 190 mg/dL 70-110 H : TESTED A T [facility] [address] (BEAKER) (test code [address], = 1538) [place] [address]: Director Supply/Techni cornelia ID = [id number] for John Basilio POCT-GLUCOSE [id number] 15:30:00 Test Item Value Reference Range Interpretation Comments POC-GLUCOSE METER 197 mg/dL 70-110 H : TESTED A T [facility] [address] (BEAKER) (test code [address], = 1538) [place] [address]: Director Supply/Techni cornelia ID = [id number] for Buff ord, Jesi Protein electrophoresis, [id number] 14:18:00 Test Item Value Reference Range Interpretation Comments Albumin Fraction 2.5 See_Comment L [Automated (test code = 405) message] Astrapi system which generated this result transmitted reference range : 3.5 - 5.5 gm/dL . The reference range was not used to interpr et this result as normal/abnormal . Alpha 1 Fraction 0.3 See_Comment [Automated (test code = 389) message] Astrapi system which generated this result transmitted reference range : 0.2 - 0.4 gm/dL . The reference range was not used to interpr et this result as normal/abnormal . Alpha 2 Fraction 0.8 See_Comment [Automated (test code = 390) message] Astrapi system which generated this result transmitted reference [...] 5.4 See_Comment L [Autom ated code = 0267) message] The system which generated this result transmitted reference range : 6.0 - 8.3 gm/dL . The reference range was not used to interpr et this result as normal/abnormal . ISSA (test code = ISSA) Director Supply ID - PIAYA L Lab Interpretation Abnormal (test code = 21688-4) [facility] electrophoresis, [id number] 14:18:00 Test Item Value Reference Range Interpretation Comments Albumin Fraction 2.5 See_Comment L [Automated (test code = 405) message] T system which generated this result transmitted reference range : 3.5 - 5.5 gm/dL . The reference range was not used to interpr et this result as normal/abnormal . Alpha 1 Fraction 0.3 See_Comment [Automated (test code = 389) message] T [employer]uation App system which generated this result transmitted reference range : 0.2 - 0.4 gm/dL . The reference range was not used to interpr et this result as normal/abnormal . Alpha 2 Fraction 0.8 See_Comment [Automated (test code = 390) message] T [employer] App system which generated this result transmitted reference [...] 5.4 See_Comment L [Autom ated code = 4390) message] The system which generated this result transmitted reference range : 6.0 - 8.3 gm/dL . The reference range was not used to interpr et this result as normal/abnormal . ISSA (test code = ISSA) Director Supply ID - PIAYA L Lab Interpretation Abnormal (test code = 53656-8) [facility], [id number] 14:18:00 Test Item Value Reference Range Interpretation Comments Albumin Fraction 2.5 See_Comment L [Automated (test code = 405) message] T system which generated this result transmitted reference range : 3.5 - 5.5 gm/dL . The reference range was not used to interpr et this result as normal/abnormal . Alpha 1 Fraction 0.3 See_Comment [Automated (test code = 389) message] Astrapi system which generated this result transmitted reference range : 0.2 - 0.4 gm/dL . The reference range was not used to interpr et this result as normal/abnormal . Alpha 2 Fraction 0.8 See_Comment [Automated (test code = 390) message] Astrapi system which generated this result transmitted reference [...] normal/abnormal . ISSA (test code = ISSA) Director Supply ID - PIAYA L Lab Interpretation Abnormal (test code = 54212-9) [facility]Protein electrophoresis, [id number] 14:18:00 Test Item Value Reference Range Interpretation Comments Albumin Fraction 2.5 See_Comment L [Automated (test code = 405) message] Astrapi system which generated this result transmitted reference range : 3.5 - 5.5 gm/dL . The reference range was not used to interpr et this result as normal/abnormal . Alpha 1 Fraction 0.3 See_Comment [Automated (test code = 389) message] Astrapi system which generated this result transmitted reference range : 0.2 - 0.4 gm/dL . The reference range was not used to interpr et this result as normal/abnormal . Alpha 2 Fraction 0.8 See_Comment [Automated (test code = 390) message] Astrapi system which generated this result transmitted reference [...] normal/abnormal . ISSA (test code = ISSA) Director Supply ID - PIGERMANIA L Lab Interpretation Abnormal (test code = 03595-0) [facility]Protein electrophoresis, [id number] 14:18:00 Test Item Value Reference Range Interpretation Comments Albumin Fraction 2.5 See_Comment L [Automated (test code = 405) message] T Valuation App system which generated this result transmitted reference range : 3.5 - 5.5 gm/dL . The reference range was not used to interpr et this result as normal/abnormal . Alpha 1 Fraction 0.3 See_Comment [Automated (test code = 389) message] Astrapi system which generated this result transmitted reference range : 0.2 - 0.4 gm/dL . The reference range was not used to interpr et this result as normal/abnormal . Alpha 2 Fraction 0.8 See_Comment [Automated (test code = 390) message] Astrapi system which generated this result transmitted reference [...] 5.4 See_Comment L [Autom ated code = 2136) message] The system which generated this result transmitted reference range : 6.0 - 8.3 gm/dL . The reference range was not used to interpr et this result as normal/abnormal . ISSA (test code = ISSA) Director Supply ID - PIAYA L Lab Interpretation Abnormal (test code = 17881-0) [facility]Protein [facility], [id number] 14:18:00 Test Item Value Reference Range Interpretation Comments Albumin Fraction 2.5 See_Comment L [Automated (test code = 405) message] Astrapi system which generated this result transmitted reference range : 3.5 - 5.5 gm/dL . The reference range was not used to interpr et this result as normal/abnormal . Alpha 1 Fraction 0.3 See_Comment [Automated (test code = 389) message] Astrapi system which generated this result transmitted reference range : 0.2 - 0.4 gm/dL . The reference range was not used to interpr et this result as normal/abnormal . Alpha 2 Fraction 0.8 See_Comment [Automated (test code = 390) message] Astrapi system which generated this result transmitted reference [...] 5.4 See_Comment L [Autom ated code = 1700) message] The system which generated this result transmitted reference range : 6.0 - 8.3 gm/dL . The reference range was not used to interpr et this result as normal/abnormal . ISSA (test code = ISSA) Director Supply ID - PIAYA L Lab Interpretation Abnormal (test code = 73228-3) [facility], [id number] 14:18:00 Test Item Value Reference Range Interpretation Comments Albumin Fraction 2.5 See_Comment L [Automated (test code = 405) message] T he system which generated this [...] [Automated (test code = 390) message] T he system which generated this [...] 5.4 See_Comment L [Autom ated code = 3216) message] The system which generated this result transmitted reference range : 6.0 - 8.3 gm/dL . The reference range was not used to interpr et this result as normal/abnormal . ISSA (test code = ISSA) Director Supply ID - PIAYA L Lab Interpretation Abnormal (test code = 88948-4) [facility] HospitalPROTEIN ELECTROPHORESIS, [id number] 14:18:00 Test Item Value Reference Range Interpretation [...] of acute inflammation. No monoclonal bands detected. [id number] Angela Howe MD (BEAKER) (test code = (electronic signature) 2616) PROTEIN TOTAL SERUM, 5.4 gm/dL 6.0-8.3 L SPEP (BEAKER) (test code = 2660) Director Supply ID - PAVEL LANAEROBIC [id number] 14:06:00 Test Item Value Reference Range Interpretation Comments CULTURE (BEAKER) (test No anaerobes isolated code = 1095) ANAEROBIC [id number] 14:05:00 Test Item Value Reference Range Interpretation Comments CULTURE (BEAKER) (test No anaerobes isolated code = 1095) POCT-GLUCOSE [id number] 11:50:00 Test Item Value Reference Range Interpretation Comments POC-GLUCOSE METER 151 mg/dL 70-110 H : TESTED A T [facility] [address] (BEAKER) (test code [address], = 1538) [facility] [address]: Director Supply/Techni cornelia ID = [id number] for Buff ord, Jesi ANG, NON-TUNNELED CATH/PICC >5 Y.O. WITH [id number] 11:32:00Reason for exam:->PICC line placement for care home IV abx. Okay to place [facility] 1975 Sex: MFINAL REPORT Procedure: PICC line insertion. History: Need for long-term IV access. Career Coach: Charlie Grigsby MD. Flying Ii Instructor: None Modality: Sonography and fluoroscopy. DOSE REDUCTION: [...] and fluoroscopic guided placement of a 5 Bangladeshi dual lumen PICC line via a right mid upper arm brachial vein approach with the catheter tip in distal SVC/RA, a satisfactory position for use. Thank you for the opportunity to assist in the care of your patient. Signed: Charlie Grigsby MDReport Verified Date/Time: 04/05/2020 11:32:55 Reading Location: [facility] Radiology Reading Room IR PICC line placement older than 5 [id number] 11:32:00 Interface, External Ris In - 04/05/2020 11:35 AM CSTFINAL REPORT Procedure: PICC line insertion. History: Need for long-term IV access. Career Coach: Charlie Grigsby MD. Flying Ii Instructor: None Modality: Sonography and fluoroscopy. DOSE REDUCTION: [...] and fluoroscopic guided placement of a 5 Bangladeshi dual lumen PICC line via a right mid upper arm brachial vein approach with the catheter tip in distal SVC/RA, a satisfactory position for use. Thank you for the opportunity to assist in the care of your patient. Signed: Charlie Grigbsy MDReport Verified Date/Time: 04/05/2020 11:32:55 Reading Location: [facility] Radiology Reading [facility] older than 5 [id number] 11:32:00 Interface, External Ris In - 04/05/2020 11:35 AM CSTFINAL REPORT Procedure: PICC line insertion. History: Need for long-term IV access. Career Coach: Charlie Grigsby MD. Flying Ii Instructor: None Modality: Sonography and fluoroscopy. DOSE REDUCTION: [...] and fluoroscopic guided placement of a 5 Bangl[place]hi dual lumen PICC line via a right mid upper arm brachial vein approach with the catheter tip in distal SVC/RA, a satisfactory position for use. Thank you for the opportunity to assist in the care of your patient. Signed: Charlie Grigsby MDReport Verified Date/Time: 04/05/2020 11:32:55 Reading Location: [facility] Radiology Reading [facility] line placement older than 5 [id number] 11:32:00 Interface, External Ris In - 04/05/2020 11:35 AM CSTFINAL REPORT Procedure: PICC line insertion. History: Need for long-term IV access. Career Coach: Charlie Grigsby MD. Flying Ii Instructor: None Modality: Sonography and fluoroscopy. DOSE REDUCTION: [...] and fluoroscopic guided placement of a 5 Bangladeshi dual lumen PICC line via a right mid upper arm brachial vein approach with the catheter tip in distal SVC/RA, a satisfactory position for use. Thank you for the opportunity to assist in the care of your patient. Signed: Charlie Grigsby MDReport Verified Date/Time: 04/05/2020 11:32:55 Reading Location: [facility] Radiology Reading [facility] P[facility] line placement older than 5 [id number] 11:32:00 Interface, External Ris In - 04/05/2020 11:35 AM CSTFINAL REPORT Procedure: PICC line insertion. History: Need for long-term IV access. Career Coach: Charlie Grigsby MD. Flying Ii Instructor: None Modality: Sonography and fluoroscopy. DOSE REDUCTION: [...] and fluoroscopic guided placement of a 5 Bangladeshi dual lumen PICC line via a right mid upper arm brachial vein approach with the catheter tip in distal SVC/RA, a satisfactory position for use. Thank you for the opportunity to assist in the care of your patient. Signed: Charlie Grigsby MDReport Verified Date/Time: 04/05/2020 11:32:55 Reading Location: [facility] Radiology Reading Room [facility]PO[facility] [id number] 09:34:00 Test Item Value Reference Range Interpretation Comments POC-GLUCOSE METER 72 mg/dL 70-110 : TESTED A T [facility] [address] (BEAKER) (test code = [address], [address]) [place] [address]: Director Supply/Techni cornelia ID = [id number] for Chencho h, Rina POCT-GLUCOSE [id number] 08:11:00 Test Item Value Reference Range Interpretation Comments POC-GLUCOSE METER 83 mg/dL 70-110 : TESTED A T [facility] [address] (BEAKER) (test code = [address], [address]) [place] [address]: Director Supply/Techni cornelia ID = [id number] for Buff ord, Jesi BASIC METABOLIC [id number] 06:57:00 Test Item Value Reference Range Interpretation [...] S NOT APPLICABLE FOR DIALYSIS PATIEN TS. Director Supply ID - LITOOperator ID - LITOOperator ID - LITOOperator ID - LITOOperator ID - LITOOperator ID - LITOOperator ID - LITOOperator ID - LITOOperator ID - LITOOperator ID - LITOOperator ID - LITOOperator ID - LITOOperator ID - LITOCBC W/PLT COUNT & AUTO [id number] 05:55:00 Test Item Value Reference Range Interpretation [...] = No growth in 5 days 6463-4) [facility] ([facility]ipuncture) 2020-04-05 01:01:00 Test Item Value Reference Range Interpretation Comments Result (test code = No growth in 5 days 6463-4) [facility] 2020-04-05 01:01:00 Test Item Value Reference Range Interpretation Comments Result (test code = No growth in 5 days 6463-4) [facility] 2020-04-05 01:01:00 Test Item Value Reference Range Interpretation Comments Result (test code = No growth in 5 days 6463-4) [facility] Culture - Routine (Left Venipuncture) 2020-04-05 01:01:00 Test Item Value Reference Range Interpretation Comments Result (test code = No growth in 5 days 6463-4) [facility] Culture - Routine (Left Venipuncture) 2020-04-05 01:01:00 Test Item Value Reference Range Interpretation Comments Result (test code = No growth in 5 days 6463-4) [facility] Culture - Routine (Left Venipuncture) 2020-04-05 01:01:00 Test Item Value Reference Range Interpretation Comments Result (test code = No growth in 5 days 6463-4) [facility] [id number] 01:01:00 Test Item Value Reference Range Interpretation Comments CULTURE (BEAKER) (test No growth in 5 days code = 1095) BLOOD [id number] 01:01:00 Test Item Value Reference Range Interpretation Comments CULTURE (BEAKER) (test No growth in 5 days code = 1095) Vancomycin level, [id number] 00:11:00 Test Item Value Reference Range Interpretation Comments Vancomycin Tr (test code = 17.1 ug/mL 10-20 4092-3) ISSA (test code = ISSA) Director Supply ID - ARCHIE Lab Interpretation (test Normal code = 69912-9) [facility], [id number] 00:11:00 Test Item Value Reference Range Interpretation Comments Vancomycin Tr (test code = 17.1 ug/mL 10-20 4092-3) ISSA (test code = ISSA) Director Supply ID - ARCHIE Lab Interpretation (test Normal code = 37243-1) [facility], [id number] 00:11:00 Test Item Value Reference Range Interpretation Comments Vancomycin Tr (test code = 17.1 ug/mL 10-20 4092-3) ISSA (test code = ISSA) Director Supply ID - ARCHIE Lab Interpretation (test Normal code = 11697-1) [facility], [id number] 00:11:00 Test Item Value Reference Range Interpretation Comments Vancomycin Tr (test code = 17.1 ug/mL 10-20 4092-3) ISSA (test code = ISSA) Director Supply ID - ARCHIE Lab Interpretation (test Normal code = 47125-8) [facility], [id number] 00:11:00 Test Item Value Reference Range Interpretation Comments Vancomycin Tr (test code = 17.1 ug/mL 10.0-20.0 4092-3) ISSA (test code = ISSA) Director Supply ID - ARCHIE Lab Interpretation (test Normal code = 43385-1) [facility] [id number] 00:11:00 Test Item Value Reference Range Interpretation Comments Vancomycin Tr (test code = 17.1 ug/mL 10.0-20.0 4092-3) ISSA (test code = ISSA) Director Supply ID - ARCHIE Lab Interpretation (test Normal code = 44678-8) [facility], [id number] 00:11:00 Test Item Value Reference Range Interpretation Comments Vancomycin Tr (test code = 17.1 ug/mL 10.0-20.0 4092-3) ISSA (test code = ISSA) Director Supply ID - ARCHIE Lab Interpretation (test Normal code = 22277-9) [facility], [id number] 00:11:00 Test Item Value Reference Range Interpretation Comments VANCOMYCIN TROUGH (BEAKER) (test 17.1 ug/mL 10.0-20.0 code = 522) Director Supply ID - LITOPOCT-GLUCOSE [id number] 21:26:00 Test Item Value Reference Range Interpretation Comments POC-GLUCOSE METER 234 mg/dL 70-110 H : TESTED A T [facility] [address] (BEAKER) (test code [address], = 1538) [place] [address]: Director Supply/Techni cornelia ID = [id number] for Tiff Roach POCT-GLUCOSE [id number] 15:54:00 Test Item Value Reference Range Interpretation Comments POC-GLUCOSE METER 200 mg/dL 70-110 H : TESTED A T [facility] [address] (BEAKER) (test code [address], = 1538) [facility] [address]: Director Supply/Techni cornelia ID = [id number] for Tiff Roach POCT-GLUCOSE [id number] 11:48:00 Test Item Value Reference Range Interpretation Comments POC-GLUCOSE METER 197 mg/dL 70-110 H : TESTED A T [facility] [address] (BEAKER) (test code [address], = 1538) [place] [address]: Director Supply/Techni cornelia ID = [id number] for Tiff Roach Hepatitis panel, [id number] 10:58:00 Test Item Value Reference Range Interpretation Comments Hep A IgM (test code = Nonreactive Nonreactive 24397-2) Hep B C IgM (test code = Nonreactive Nonreactive 12337-5) Hepatitis C Ab (test Nonreactive Nonreactive code = 20541-4) HBsAg Screen (test code Nonreactive Nonreactive = 5195-3) ISSA (test code = ISSA) Director Supply ID - BARRERA M Lab Interpretation (test Normal code = 00593-9) [facility] panel, [id number] 10:58:00 Test Item Value Reference Range Interpretation Comments Hep A IgM (test code = Nonreactive Nonreactive 93200-3) Hep B C IgM (test code = Nonreactive Nonreactive 76718-3) Hepatitis C Ab (test Nonreactive Nonreactive code = 07979-9) HBsAg Screen (test code Nonreactive Nonreactive = 5195-3) ISSA (test code = ISSA) Director Supply ID - BARRERA M Lab Interpretation (test Normal code = 68924-6) [facility], [id number] 10:58:00 Test Item Value Reference Range Interpretation Comments Hep A IgM (test code = Nonreactive Nonreactive 45321-8) Hep B C IgM (test code = Nonreactive Nonreactive 79232-3) Hepatitis C Ab (test Nonreactive Nonreactive code = 24344-1) HBsAg Screen (test code Nonreactive Nonreactive = 5195-3) ISSA (test code = ISSA) Director Supply ID - BARRERA M Lab Interpretation (test Normal code = 70960-9) [facility] panel, [id number] 10:58:00 Test Item Value Reference Range Interpretation Comments Hep A IgM (test code = Nonreactive Nonreactive 06516-1) [facility] B C IgM (test code = Nonreactive Nonreactive 21178-6) Hepatitis C Ab (test Nonreactive Nonreactive code = 35101-0) HBsAg Screen (test code Nonreactive Nonreactive = 5195-3) ISSA (test code = ISSA) Director Supply ID - [id number] M Lab Interpretation (test Normal code = 41059-4) [facility] panel, [id number] 10:58:00 Test Item Value Reference Range Interpretation Comments Hep A IgM (test code = Nonreactive Nonreactive 49343-8) Hep B C IgM (test code = Nonreactive Nonreactive 87818-5) Hepatitis C Ab (test Nonreactive Nonreactive code = 46087-3) HBsAg Screen (test code Nonreactive Nonreactive = 5195-3) ISSA (test code = ISSA) Director Supply ID - BARRERA M Lab Interpretation (test Normal code = 53795-7) [facility] panel, [id number] 10:58:00 Test Item Value Reference Range Interpretation Comments Hep A IgM (test code = Nonreactive Nonreactive 80694-9) Hep B C IgM (test code = Nonreactive Nonreactive 30270-8) Hepatitis C Ab (test Nonreactive Nonreactive code = 28130-1) HBsAg Screen (test code Nonreactive Nonreactive = 5195-3) ISSA (test code = ISSA) Director Supply ID - [id number] M Lab Interpretation (test Normal code = 35582-8) [facility] panel, [id number] 10:58:00 Test Item Value Reference Range Interpretation Comments Hep A IgM (test code = Nonreactive Nonreactive 79052-2) Hep B C IgM (test code = Nonreactive Nonreactive 44265-3) Hepatitis C Ab (test Nonreactive Nonreactive code = 12761-0) HBsAg Screen (test code Nonreactive Nonreactive = 5195-3) ISSA (test code = ISSA) Director Supply ID - BARRERA M Lab Interpretation (test Normal code = 66713-9) [facility] PANEL, [id number] 10:58:00 Test Item Value Reference Range Interpretation Comments HEPATITIS A IGM ANTIBODY (BEAKER) Nonreactive Nonreactive (test code = 498) HEPATITIS B CORE IGM ANTIBODY Nonreactive Nonreactive (BEAKER) (test code = 645) HEPATITIS C ANTIBODY (BEAKER) Nonreactive Nonreactive (test code = 367) HEPATITIS B SURFACE ANTIGEN (2) Nonreactive Nonreactive (BEAKER) (test code = 2585) Director Supply ID - BARRERA MUREA NITROGEN, RANDOM [id number] 10:45:00 Test Item Value Reference Range Interpretation Comments UREA NITROGEN URINE (BEAKER) (test 528 mg/dL code = 538) Reference Range: No NormalsOperator ID - BARRERA MSURGICALLY OBTAINED CULTURE + GRAM [id number] 10:30:00 Test Item Value Reference Range Interpretation Comments CULTURE (BEAKER) A <1+ Coagula se negative (test code = Staphylococcus 1095) GRAM STAIN No WBCs RESULT (BEAKER) (test code = 1123) GRAM STAIN 2+ gram positive RESULT (BEAKER) cocci in pairs (test code = and clusters 584960) SURGICALLY OBTAINED CULTURE + GRAM [id number] 09:52:00 Test Item Value Reference Range Interpretation Comments CULTURE (BEAKER) A <1+ Viridan s (test code = Streptococcus 1095) GRAM STAIN No WBCs RESULT (BEAKER) (test code = 1123) GRAM STAIN No organisms seen RESULT (BEAKER) (test code = 584486) TISSUE [id number] 09:51:00Surgical Pathology Report Case: [id number] Authorizing Provider: Laura Nguyen DPM Collected: 04/01/2020 01:12 PM Ordering Location: [facility] Med Surg 5th Floor Received: 04/02/2020 08:38 AM Pathologist: Hilda Mack MD Specimen: Fo ot, Left, Bone biopsy 1st metatarsal, left BONE, FIRST LEFT METATARSAL, BIOPSY: - BONE WITH FOCAL REPARATIVE/REGENERATIVE CHANGES - NO ACUTE OSTEOMYELITIS ISSEEN Signing Pathologist Direct Phone Line: [phone] signed by Hilda Mack MD on 04/04/2020 at 9:51 [id number]; [id number] infectionBone biopsy first metatarsal, leftThespecimen is received in fixative and labeled with the patient's name, medical record number and designated as "foot left" and consists of a bone core biopsy measuring 1.5 cm in length and 0.2 cm in diameter. The specimen is entirely submitted into A1 and into decal solution. MG/pl Performed [facility], Department of Pathology, [address] [place] [address], Ljhplr [facility], Department of Pathology, [address] [place] [address], [facility], [facility] [place] [address], PTKD-GLUCOSE METER 2020-04-04 08:22:00 Test Item Value Reference Range Interpretation Comments POC-GLUCOSE METER 167 mg/dL 70-110 H : TESTED A T [address] (BEAKER) (test code [address], = 1538) [place] [id number]: Director Supply/Techni cornelia ID = [id number] for Tiff Roach PTH, [id number] 07:24:00 Test Item Value Reference Range Interpretation Comments PARATHYROID HORMONE INTACT 365.7 pg/mL 15.0-90.0 H (BEAKER) (test code = 577) Director Supply ID - [id number] METABOLIC [id number] 06:33:00 Test Item Value Reference Range Interpretation [...] S NOT APPLICABLE FOR DIALYSIS PATIEN TS. Director Supply ID - [id number] ID - [id number] ID - [id number] ID - [id number] ID - [id number] ID - [id number] ID - [id number] ID - HVOL88Cdwldxen ID - [id number] ID - [id number] ID - [id number] ID - [id number] ID - [id number] W/PLT COUNT & AUTO [id number] 06:01:00 Test Item Value Reference Range Interpretation [...] PERCENT (BEAKER) (test code = 2801) POCT-GLUCOSE [id number] 21:43:00 Test Item Value Reference Range Interpretation Comments POC-GLUCOSE METER 242 mg/dL 70-110 H : TESTED A T [address] (BEAKER) (test code [facility] [address], = [address]) [facility] 77 [address]: Director Supply/Techni cornelia ID = [id number] for Heidy Barrow HIV-1 Antigen with HIV-1/2 [id number] 18:37:00 Test Item Value Reference Range Interpretation Comments HIV-1 Antigen with HIV Nonreactive Nonreactive 1&2 Antibody (test code = 79069-2) ISSA (test code = ISSA) Director Supply ID - [id number] Lab Interpretation (test Normal code = 37239-7) [facility] [id number] 18:37:00 Test Item Value Reference Range Interpretation Comments HIV-1 Antigen with HIV Nonreactive Nonreactive 1&2 Antibody (test code = 77371-8) ISSA (test code = ISSA) Director Supply ID - [id number] Lab Interpretation (test Normal code = 89511-7) [facility]-1/2 [id number] 18:37:00 Test Item Value Reference Range Interpretation Comments HIV-1 Antigen with HIV Nonreactive Nonreactive 1&2 Antibody (test code = 40000-8) ISSA (test code = ISSA) Director Supply ID - [id number] Lab Interpretation (test Normal code = 83720-0) [facility]-1/2 [id number] 18:37:00 Test Item Value Reference Range Interpretation Comments HIV-1 Antigen with HIV Nonreactive Nonreactive 1&2 Antibody (test code = 53877-9) ISSA (test code = ISSA) Director Supply ID - [id number] Lab Interpretation (test Normal code = 87502-2) [facility]-1/2 [id number] 18:37:00 Test Item Value Reference Range Interpretation Comments HIV-1 Antigen with HIV Nonreactive Nonreactive 1&2 Antibody (test code = 91734-0) ISSA (test code = ISSA) Director Supply ID - [id number] Lab Interpretation (test Normal code = 77538-8) [facility] with HIV-1/2 [id number] 18:37:00 Test Item Value Reference Range Interpretation Comments HIV-1 Antigen with HIV Nonreactive Nonreactive 1&2 Antibody (test code = 65784-9) ISSA (test code = ISSA) Director Supply ID - [id number] Lab Interpretation (test Normal code = 20974-4) [facility] with HIV-1/2 [id number] 18:37:00 Test Item Value Reference Range Interpretation Comments HIV-1 Antigen with HIV Nonreactive Nonreactive 1&2 Antibody (test code = 92660-4) ISSA (test code = ISSA) Director Supply ID - [id number] Lab Interpretation (test Normal code = 27764-2) [facility] ANTIGEN WITH HIV-1/2 [id number] 18:37:00 Test Item Value Reference Range Interpretation Comments HIV-1 ANTIGEN WITH HIV 1\\T\\2 Nonreactive Nonreactive ANTIBODY (2) (BEAKER) (test code = 2586) Director Supply ID - [id number] METABOLIC [id number] 17:38:00 Test Item Value Reference Range Interpretation [...] S NOT APPLICABLE FOR DIALYSIS PATIEN TS. Director Supply ID - [id number] ID - [id number] ID - [id number] ID - [id number] ID - [id number] ID - [id number] ID - [id number] ID - [id number] ID - [id number] ID - [id number] ID - [id number] ID - [id number] ID - [id number] W/PLT COUNT & AUTO [id number] 17:24:00 Test Item Value Reference Range Interpretation [...] PERCENT (BEAKER) (test code = 2801) POCT-GLUCOSE [id number] 16:16:00 Test Item Value Reference Range Interpretation Comments POC-GLUCOSE METER 228 mg/dL 70-110 H : TESTED A T [address] (BEAKER) (test code [facility] [address], = [address]) [facility] [address]: Director Supply/Techni cornelia ID = [id number] for Tiff Roach WOUND CULTURE + GRAM [id number] 14:46:00 Test Item Value Reference Interpretation Comments [...] 4+ Mixed geri (BEAKER) (test code = 374890) 3+ Skin floraPOCT-GLUCOSE [id number] 11:46:00 Test Item Value Reference Range Interpretation Comments POC-GLUCOSE METER 251 mg/dL 70-110 H : TESTED A T [address] (BEAKER) (test code [facility] [address], = 1538) [facility] 77 [address]: Director Supply/Techni cornelia ID = [id number] for Tiff Roach PROTEIN, RANDOM [id number] 11:18:00 Test Item Value Reference Range Interpretation Comments PROTEIN, URINE (BEAKER) (test code 214 mg/dL 0-14 H = 1569) Director Supply ID - [id number] ID - [id number], RANDOM [id number] 11:02:00 Test Item Value Reference Range Interpretation Comments CREATININE URINE (BEAKER) (test 129.1 mg/dL code = 375) Reference Range: No NormalsOperator ID - [id number], RANDOM [id number] 11:00:00 Test Item Value Reference Range Interpretation Comments SODIUM URINE (BEAKER) (test code = 20 meq/L 243) Reference Range: No NormalsOperator ID - [id number] 11:00:00 Test Item Value Reference Range Interpretation Comments PHOSPHORUS (BEAKER) (test code = 5.0 mg/dL 2.5-4.5 H 604) Director Supply ID - [id number] w/Pebohgibdjz8524-51-68 10:57:00 Test Item Value Reference Range Interpretation Comments Color, UA (test code Yellow = 5778-6) Clarity, UA (test Slightly Cloudy code = 5767-9) Specific [place], UA 1.025 1.001-1.035 (test code = 5811-5) pH, UA (test code = 5.0 5.0-8.0 5803-2) Protein, UA (test 100 mg/dL Negative A code = 22154-2) Glucose, UA (test Negative Negative code = 365) Ketones, UA (test Negative Negative code = 2514-8) Bilirubin, UA (test Negative Negative code = 93901-9) Blood, UA (test code Small Negative A = 62186-1) Nitrite, UA (test Negative Negative code = 5802-4) Leukocytes, UA (test Negative Negative code = 5799-2) Urobilinogen, UA 0.2 mg/dL 0.2-1 (test code = 38709-3) Bacteria, UA (test Occasional code = 67790-6) RBC, UA (test code = 5-10 See_Comment [Autom ated 799-7) message] The system which generated this result transmitted reference range : /HPF. The reference range was not used to interpret this result as normal/abnormal . WBC, UA (test code = <5 See_Comment [Autom ated 81817-0) message] The system which generated this result transmitted reference range : /HPF. The reference range was not used to interpret this result as normal/abnormal . SQUAMOUS EPITHELIAL <5 See_Comment [Automa josé luis (test code = 56262-6) messag e] The system which generated this result transmitted reference range : /HPF. The reference range was not used to interpret this result as normal/abnormal . Specimen Source (test code = 2795) Lab Interpretation Abnormal (test code = 62667-3) [facility] w/Wbqwiehxntb9294-42-69 10:57:00 Test Item Value Reference Range Interpretation Comments Color, UA (test code Yellow = 5778-6) Clarity, UA (test Slightly Cloudy code = 5767-9) Specific [place], UA 1.025 1.001-1.035 (test code = 5811-5) pH, UA (test code = 5.0 5.0-8.0 5803-2) Protein, UA (test 100 mg/dL Negative A code = 90479-8) Glucose, UA (test Negative Negative code = 365) Ketones, UA (test Negative Negative code = 2514-8) Bilirubin, UA (test Negative Negative code = 33807-2) Blood, UA (test code Small Negative A = 44832-6) Nitrite, UA (test Negative Negative code = 5802-4) Leukocytes, UA (test Negative Negative code = 5799-2) Urobilinogen, UA 0.2 mg/dL 0.2-1 (test code = 10359-3) Bacteria, UA (test Occasional code = 05269-9) RBC, UA (test code = 5-10 See_Comment [Autom ated 799-7) message] The system which generated this result transmitted reference range : /HPF. The reference range was not used to interpret this result as normal/abnormal . WBC, UA (test code = <5 See_Comment [Autom ated 65878-8) message] The system which generated this result transmitted reference range : /HPF. The reference range was not used to interpret this result as normal/abnormal . SQUAMOUS EPITHELIAL <5 See_Comment [Automa josé luis (test code = 38656-5) messag e] The system which generated this result transmitted reference range : /HPF. The reference range was not used to interpret this result as normal/abnormal . Specimen Source (test code = 2795) Lab Interpretation Abnormal (test code = 49606-3) [facility] w/Bbrzdqaqbxm0176-49-66 10:57:00 Test Item Value Reference Range Interpretation Comments Color, UA (test code Yellow = 5778-6) Clarity, UA (test Slightly Cloudy code = 5767-9) Specific [place], UA 1.025 1.001-1.035 (test code = 5811-5) pH, UA (test code = 5.0 5.0-8.0 5803-2) Protein, UA (test 100 mg/dL Negative A code = 00716-3) Glucose, UA (test Negative Negative code = 365) Ketones, UA (test Negative Negative code = 2514-8) Bilirubin, UA (test Negative Negative code = 16147-2) Blood, UA (test code Small Negative A = 63923-9) Nitrite, UA (test Negative Negative code = 5802-4) Leukocytes, UA (test Negative Negative code = 5799-2) Urobilinogen, UA 0.2 mg/dL 0.2-1 (test code = 64683-5) Bacteria, UA (test Occasional code = 12823-5) RBC, UA (test code = 5-10 See_Comment [Autom ated 799-7) message] The system which generated this result transmitted reference range : /HPF. The reference range was not used to interpret this result as normal/abnormal . WBC, UA (test code = <5 See_Comment [Autom ated 16613-8) message] The system which generated this result transmitted reference range : /HPF. The reference range was not used to interpret this result as normal/abnormal . SQUAMOUS EPITHELIAL <5 See_Comment [Automa josé luis (test code = 85871-8) messag e] The system which generated this result transmitted reference range : /HPF. The reference range was not used to interpret this result as normal/abnormal . Specimen Source (test code = 2795) Lab Interpretation Abnormal (test code = 05212-0) [facility]/Ziecmgcnlok3642-49-71 10:57:00 Test Item Value Reference Range Interpretation Comments Color, UA (test code Yellow = 5778-6) Clarity, UA (test Slightly Cloudy code = 5767-9) Specific [place], UA 1.025 1.001-1.035 (test code = 5811-5) pH, UA (test code = 5.0 5.0-8.0 5803-2) Protein, UA (test 100 mg/dL Negative A code = 62625-0) Glucose, UA (test Negative Negative code = 365) Ketones, UA (test Negative Negative code = 2514-8) Bilirubin, UA (test Negative Negative code = 17032-8) Blood, UA (test code Small Negative A = 76469-6) Nitrite, UA (test Negative Negative code = 5802-4) Leukocytes, UA (test Negative Negative code = 5799-2) Urobilinogen, UA 0.2 mg/dL 0.2-1 (test code = 50580-1) Bacteria, UA (test Occasional code = 45318-0) RBC, UA (test code = 5-10 See_Comment [Autom ated 799-7) message] The system which generated this result transmitted reference range : /HPF. The reference range was not used to interpret this result as normal/abnormal . WBC, UA (test code = <5 See_Comment [Autom ated 11774-0) message] The system which generated this result transmitted reference range : /HPF. The reference range was not used to interpret this result as normal/abnormal . SQUAMOUS EPITHELIAL <5 See_Comment [Automa josé luis (test code = 10775-8) messag e] The system which generated this result transmitted reference range : /HPF. The reference range was not used to interpret this result as normal/abnormal . Specimen Source (test code = 2795) Lab Interpretation Abnormal (test code = 67416-7) [facility]/Lacgewyavpo5884-63-98 10:57:00 Test Item Value Reference Range Interpretation Comments Color, UA (test code Yellow = 5778-6) Clarity, UA (test Slightly Cloudy code = 5767-9) Specific [place], UA 1.025 1.001-1.035 (test code = 5811-5) pH, UA (test code = 5.0 5.0-8.0 5803-2) Protein, UA (test 100 mg/dL Negative A code = 52708-0) Glucose, UA (test Negative Negative code = 365) Ketones, UA (test Negative Negative code = 2514-8) Bilirubin, UA (test Negative Negative code = 08163-3) Blood, UA (test code Small Negative A = 81578-2) Nitrite, UA (test Negative Negative code = 5802-4) Leukocytes, UA (test Negative Negative code = 5799-2) Urobilinogen, UA 0.2 mg/dL 0.2-1.0 (test code = 13488-0) Bacteria, UA (test Occasional code = 35267-7) RBC, UA (test code = 5-10 See_Comment [Autom ated 799-7) message] The system which generated this result transmitted reference range : /HPF. The reference range was not used to interpret this result as normal/abnormal . WBC, UA (test code = <5 See_Comment [Autom ated 37489-0) message] The system which generated this result transmitted reference range : /HPF. The reference range was not used to interpret this result as normal/abnormal . SQUAMOUS EPITHELIAL <5 See_Comment [Automa josé luis (test code = 61244-3) messag e] The system which generated this result transmitted reference range : /HPF. The reference range was not used to interpret this result as normal/abnormal . Specimen Source (test code = 2795) Lab Interpretation Abnormal (test code = 06368-6) [facility]/Vemuwasmfqr5254-87-45 10:57:00 Test Item Value Reference Range Interpretation Comments Color, UA (test code Yellow = 5778-6) Clarity, UA (test Slightly Cloudy code = 5767-9) Specific [place], UA 1.025 1.001-1.035 (test code = 5811-5) pH, UA (test code = 5.0 5.0-8.0 5803-2) Protein, UA (test 100 mg/dL Negative A code = 98173-3) Glucose, UA (test Negative Negative code = 365) Ketones, UA (test Negative Negative code = 2514-8) Bilirubin, UA (test Negative Negative code = 12892-0) Blood, UA (test code Small Negative A = 47708-3) Nitrite, UA (test Negative Negative code = 5802-4) Leukocytes, UA (test Negative Negative code = 5799-2) Urobilinogen, UA 0.2 mg/dL 0.2-1.0 (test code = 49353-2) Bacteria, UA (test Occasional code = 15483-6) RBC, UA (test code = 5-10 See_Comment [Autom ated 799-7) message] The system which generated this result transmitted reference range : /HPF. The reference range was not used to interpret this result as normal/abnormal . WBC, UA (test code = <5 See_Comment [Autom ated 53177-1) message] The system which generated this result transmitted reference range : /HPF. The reference range was not used to interpret this result as normal/abnormal . SQUAMOUS EPITHELIAL <5 See_Comment [Automa josé luis (test code = 61525-4) messag e] The system which generated this result transmitted reference range : /HPF. The reference range was not used to interpret this result as normal/abnormal . Specimen Source (test code = 2795) Lab Interpretation Abnormal (test code = 16563-2) [facility] w/Sgffwvvzusv4355-64-63 10:57:00 Test Item Value Reference Range Interpretation Comments Color, UA (test code Yellow = 5778-6) Clarity, UA (test Slightly Cloudy code = 5767-9) Specific [place], UA 1.025 1.001-1.035 (test code = 5811-5) pH, UA (test code = 5.0 5.0-8.0 5803-2) Protein, UA (test 100 mg/dL Negative A code = 29215-9) Glucose, UA (test Negative Negative code = 365) Ketones, UA (test Negative Negative code = 2514-8) Bilirubin, UA (test Negative Negative code = 67683-6) Blood, UA (test code Small Negative A = 97134-1) Nitrite, UA (test Negative Negative code = 5802-4) Leukocytes, UA (test Negative Negative code = 5799-2) Urobilinogen, UA 0.2 mg/dL 0.2-1.0 (test code = 45007-0) Bacteria, UA (test Occasional code = 07501-7) RBC, UA (test code = 5-10 See_Comment [Autom ated 799-7) message] The system which generated this result transmitted reference range : /HPF. The reference range was not used to interpret this result as normal/abnormal . WBC, UA (test code = <5 See_Comment [Autom ated 25509-0) message] The system which generated this result transmitted reference range : /HPF. The reference range was not used to interpret this result as normal/abnormal . SQUAMOUS EPITHELIAL <5 See_Comment [Automa josé luis (test code = 25910-5) benedictoag e] The system which generated this result transmitted reference range : /HPF. The reference range was not used to interpret this result as normal/abnormal . Specimen Source (test code = 2795) Lab Interpretation Abnormal (test code = 40979-4) [facility]/ [id number] 10:57:00 Test Item Value Reference Range Interpretation [...] pg/mL 0-100 H (test code = 700) Director Supply ID - [id number], RENAL, LCDLXJBV0365-82-32 08:56:00Reason for exam:- >KARYN on CKDVA [facility] : 1975 Sex: MFINAL [...] MDReport Verified Date/Time: 04/03/2020 08:56:12 Reading Location: [facility] Radiology Reading Room CT, EXTREMITY, LOWER WITHOUT CONTRAST, [id number] 08:50:00Unlisted Reason for Exam - Click Yes and Enter Reason Below->YesL Foot woundUnlisted Reason for Exam->L Foot infection to r/o osteomyelitisPlease specify:->Foot [facility] : 1975 Sex: MFINAL [...] persistent clinical concern, consider MRI correlation. Signed: aLcie Gonzales Verified Date/Time: 04/03/2020 08:50:03 Reading Location: [facility] C013X Ortho Consult Reading Room CT lower extremity without IV contrast [id number] 08:50:00Interface, External Ris In - 04/03/2020 8:52 [...] Gonzales Verified Date/Time: 04/03/2020 08:50:03 Reading Location: [address] [facility] Consult Reading [facility] [id number] 08:50:00 Interface, External Ris In - 04/03/2020 [...] Gonzalesort Verified Date/Time: 04/03/2020 08:50:03 Reading Location: [address] Ortho Consult Reading [facility] contrast [id number] 08:50:00Interface, External Ris In - 04/03/2020 8:52 [...] MDReport Verified Date/Time: 04/03/2020 08:50:03 Reading Location: [facility] B1 C013X Ortho Consult Reading [facility] without IV contrast [id number] 08:50:00Interface, External Ris In - 04/03/2020 8:52 [...] Gonzales Verified Date/Time: 04/03/2020 08:50:03 Reading Location: [facility] B1 C013X Ortho Consult Reading Room [facility] POCT-GLUCOSE [id number] 07:39:00 Test Item Value Reference Range Interpretation Comments POC-GLUCOSE METER 178 mg/dL 70-110 H : TESTED A T [address] (BEAKER) (test code [facility] [address], = 1538) [facility] 77 478: Director Supply/Techni cornelia ID = [id number] for Tiff Roach BASIC METABOLIC [id number] 06:16:00 Test Item Value Reference Range Interpretation [...] S NOT APPLICABLE FOR DIALYSIS PATIEN TS. Director Supply ID - LITOOperator ID - LITOOperator ID - LITOOperator ID - LITOOperator ID - LITOOperator ID - LITOOperator ID - LITOOperator ID - LITOOperator ID - LITOOperator ID - LITOOperator ID - LITOOperator ID - LITOOperator ID - LITOCBC (Hemogram only)2020-04-03 05:47:00 Test Item Value Reference Range Interpretation Comments WBC (test code = 6690-2) 8.9 See_Comment [A utomated message] The system zuuka! generated this result transmitted ref erence range: 4.0 - 10 .0 K/L. The refe rence range was not u sed to interpret this result as normal/abnor mal. RBC (test code = 789-8) 3.59 See_Comment L [Au tomated message] The system zuuka! generated this result transmitted ref erence range: 4.20 - 5 .80 M/L. The refe rence range was not u sed to interpret this result as normal/abnor mal. MCHC (test code = 786-4) 32.4 See_Comment L [A utomated message] The system zuuka! generated this result transmitted ref erence range: [...] See_Comment [Aut omated message] 777-3) The system zuuka! generated this result transmitted ref erence range: 150 - 43 0 K/CU MM. The referen ce range was not u sed to interpret this result as normal/abnor mal. MPV (test code = 11.7 fL 6-11.5 H 89333-4) nRBC (test code = 413) 0 See_Comment [Aut omated message] The system zuuka! generated this result transmitted ref erence range: 0 - 0 /1 00 WBC. The refere nce range was not u sed to interpret this result as normal/abnor mal. Lab Interpretation (test Abnormal code = 39272-9) [facility] 05:47:00 Test Item Value Reference Range Interpretation Comments WBC (test code = 6690-2) 8.9 See_Comment [A utomated message] The system zuuka! generated this result transmitted ref erence range: 4.0 - 10 .0 K/L. The refe rence range was not u sed to interpret this result as normal/abnor mal. RBC (test code = 789-8) 3.59 See_Comment L [Au tomated message] The system zuuka! generated this result transmitted ref erence range: 4.20 - 5 .80 M/L. The refe rence range was not u sed to interpret this result as normal/abnor mal. MCHC (test code = 786-4) 32.4 See_Comment L [A utomated message] The system zuuka! generated this result transmitted ref erence range: [...] See_Comment [Aut omated message] 777-3) The system zuuka! generated this result transmitted ref erence range: 150 - 43 0 K/CU MM. The referen ce range was not u sed to interpret this result as normal/abnor mal. MPV (test code = 11.7 fL 6-11.5 H 03744-6) nRBC (test code = 413) 0 See_Comment [Aut omated message] The system zuuka! generated this result transmitted ref erence range: 0 - 0 /1 00 WBC. The refere nce range was not u sed to interpret this result as normal/abnor mal. Lab Interpretation (test Abnormal code = 45467-0) [facility] (Hemogram only)2020-04-03 05:47:00 Test Item Value Reference Range Interpretation Comments WBC (test code = 6690-2) 8.9 See_Comment [A utomated message] The system zuuka! generated this result transmitted ref erence range: 4.0 - 10 .0 K/L. The refe rence range was not u sed to interpret this result as normal/abnor mal. RBC (test code = 789-8) 3.59 See_Comment L [Au tomated message] The system zuuka! generated this result transmitted ref erence range: 4.20 - 5 .80 M/L. The refe rence range was not u sed to interpret this result as normal/abnor mal. MCHC (test code = 786-4) 32.4 See_Comment L [A utomated message] The system zuuka! generated this result transmitted ref erence range: [...] See_Comment [Aut omated message] 777-3) The system zuuka! generated this result transmitted ref erence range: 150 - 43 0 K/CU MM. The referen ce range was not u sed to interpret this result as normal/abnor mal. MPV (test code = 11.7 fL 6-11.5 H 81502-1) nRBC (test code = 413) 0 See_Comment [Aut omated message] The system zuuka! generated this result transmitted ref erence range: 0 - 0 /1 00 WBC. The refere nce range was not u sed to interpret this result as normal/abnor mal. Lab Interpretation (test Abnormal code = 29823-9) [facility] (Hemogram only)2020-04-03 05:47:00 Test Item Value Reference Range Interpretation Comments WBC (test code = 6690-2) 8.9 See_Comment [A utomated message] The system zuuka! generated this result transmitted ref erence range: 4.0 - 10 .0 K/L. The refe rence range was not u sed to interpret this result as normal/abnor mal. RBC (test code = 789-8) 3.59 See_Comment L [Au tomated message] The system [employer] generated this result transmitted ref erence range: 4.20 - 5 .80 M/L. The refe rence range was not u sed to interpret this result as normal/abnor mal. MCHC (test code = 786-4) 32.4 See_Comment L [A utomated message] The system zuuka! generated this result transmitted ref erence range: [...] See_Comment [Aut omated message] 777-3) The system zuuka! generated this result transmitted ref erence range: 150 - 43 0 K/CU MM. The referen ce range was not u sed to interpret this result as normal/abnor mal. MPV (test code = 11.7 fL 6-11.5 H 07867-4) nRBC (test code = 413) 0 See_Comment [Aut omated message] The system zuuka! generated this result transmitted ref erence range: 0 - 0 /1 00 WBC. The refere nce range was not u sed to interpret this result as normal/abnor mal. Lab Interpretation (test Abnormal code = 24734-8) [facility] (Hemogram only)2020-04-03 05:47:00 Test Item Value Reference Range Interpretation Comments WBC (test code = 6690-2) 8.9 See_Comment [A utomated message] The system zuuka! generated this result transmitted ref erence range: 4.0 - 10 .0 K/L. The refe rence range was not u sed to interpret this result as normal/abnor mal. RBC (test code = 789-8) 3.59 See_Comment L [Au tomated message] The system zuuka! generated this result transmitted ref erence range: 4.20 - 5 .80 M/L. The refe rence range was not u sed to interpret this result as normal/abnor mal. MCHC (test code = 786-4) 32.4 See_Comment L [A utomated message] The system zuuka! generated this result transmitted ref erence range: [...] See_Comment [Aut omated message] 777-3) The system zuuka! generated this result transmitted ref erence range: 150 - 43 0 K/CU MM. The referen ce range was not u sed to interpret this result as normal/abnor mal. MPV (test code = 11.7 fL 6.0-11.5 H 67384-7) nRBC (test code = 413) 0 See_Comment [Aut omated message] The system zuuka! generated this result transmitted ref erence range: 0 - 0 /1 00 WBC. The refere nce range was not u sed to interpret this result as normal/abnor mal. Lab Interpretation (test Abnormal code = 57141-1) [facility] (Hemogram only)2020-04-03 05:47:00 Test Item Value Reference Range Interpretation Comments WBC (test code = 6690-2) 8.9 See_Comment [A utomated message] The system zuuka! generated this result transmitted ref erence range: 4.0 - 10 .0 K/L. The refe rence range was not u sed to interpret this result as normal/abnor mal. RBC (test code = 789-8) 3.59 See_Comment L [Au tomated message] The system zuuka! generated this result transmitted ref erence range: 4.20 - 5 .80 M/L. The refe rence range was not u sed to interpret this result as normal/abnor mal. MCHC (test code = 786-4) 32.4 See_Comment L [A utomated message] The system zuuka! generated this result transmitted ref erence range: [...] See_Comment [Aut omated message] 777-3) The system zuuka! generated this result transmitted ref erence range: 150 - 43 0 K/CU MM. The referen ce range was not u sed to interpret this result as normal/abnor mal. MPV (test code = 11.7 fL 6.0-11.5 H 70128-3) nRBC (test code = 413) 0 See_Comment [Aut omated message] The system zuuka! generated this result transmitted ref erence range: 0 - 0 /1 00 WBC. The refere nce range was not u sed to interpret this result as normal/abnor mal. Lab Interpretation (test Abnormal code = 64757-1) [facility] (Hemogram only)2020-04-03 05:47:00 Test Item Value Reference Range Interpretation Comments WBC (test code = 6690-2) 8.9 See_Comment [A utomated message] The system zuuka! generated this result transmitted ref erence range: 4.0 - 10 .0 K/L. The refe rence range was not u sed to interpret this result as normal/abnor mal. RBC (test code = 789-8) 3.59 See_Comment L [Au tomated message] The system zuuka! generated this result transmitted ref erence range: 4.20 - 5 .80 M/L. The refe rence range was not u sed to interpret this result as normal/abnor mal. MCHC (test code = 786-4) 32.4 See_Comment L [A utomated message] The system zuuka! generated this result transmitted ref erence range: [...] See_Comment [Aut omated message] 777-3) The system zuuka! generated this result transmitted ref erence range: 150 - 43 0 K/CU MM. The referen ce range was not u sed to interpret this result as normal/abnor mal. MPV (test code = 11.7 fL 6.0-11.5 H 32200-4) nRBC (test code = 413) 0 See_Comment [Aut omated message] The system zuuka! generated this result transmitted ref erence range: 0 - 0 /1 00 WBC. The refere nce range was not u sed to interpret this result as normal/abnor mal. Lab Interpretation (test Abnormal code = 93683-1) [facility] (HEMOGRAM ONLY)2020-04-03 05:47:00 Test Item Value Reference [...] (BEAKER) (test code = 413) VANCOMYCIN LEVEL, [id number] 22:37:00 Test Item Value Reference Range Interpretation Comments VANCOMYCIN TROUGH (BANNER) (test 18.7 ug/mL 10.0-20.0 code = 522) Director Supply ID - JUSTINPOCT-GLUCOSE [id number] 21:28:00 Test Item Value Reference Range Interpretation Comments POC-GLUCOSE METER 234 mg/dL 70-110 H : TESTED A T [facility] [address] (BEAKER) (test code [facility], = 1538) [place] [address]: Director Supply/Techni cornelia ID = [id number] for Heidy Barrow POCT-GLUCOSE [id number] 16:03:00 Test Item Value Reference Range Interpretation Comments POC-GLUCOSE METER 262 mg/dL 70-110 H : TESTED A T [facility] [address] (BEAKER) ([facility] = [facility] [place] [address]: Director Supply/Techni cornelia ID = [id number] for Buff ord, Jesi POCT-GLUCOSE [id number] 11:56:00 Test Item Value Reference Range Interpretation Comments POC-GLUCOSE METER 190 mg/dL 70-110 H : TESTED A T [facility] [address] (BEAKER) (test code [facility] [address], = 1538) [place] [address]: Director Supply/Techni cornelia ID = [id number] for Buff ord, Jesi BASIC METABOLIC [id number] 06:58:00 Test Item Value Reference Range Interpretation [...] S NOT APPLICABLE FOR DIALYSIS PATIEN TS. Director Supply ID - [id number] ID - [id number] ID - [id number] ID - goul30Zxrzmncs ID - [id number] ID - oldz77Cekrhonc ID - mrez90Dzvwdeef ID - ivof21Ovhxikjj ID - vyuz07Siqdddon ID - icfm83Fadwysti ID - mtja73Lohdspzb ID - pzat04Gicjbown ID - [id number] (HEMOGRAM ONLY)2020-04-02 06:43:00 Test Item Value Reference [...] 0-0 (BEAKER) (test code = 413) POCT-GLUCOSE [id number] 16:21:00 Test Item Value Reference Range Interpretation Comments POC-GLUCOSE METER 262 mg/dL 70-110 H : TESTED A T [facility] [address] (BEAKER) (test code [address], = 1538) [place] [address]: Director Supply/Techni cornelia ID = [id number] for Buff ord, Jesi POCT-GLUCOSE [id number] 13:00:00 Test Item Value Reference Range Interpretation Comments POC-GLUCOSE METER 256 mg/dL 70-110 H : TESTED A T [facility] [address] (BEAKER) (test code [address], = 1538) [place] [address]: Director Supply/Techni cornelia ID = [id number] for Palm er, Ealine POCT-GLUCOSE [id number] 11:49:00 Test Item Value Reference Range Interpretation Comments POC-GLUCOSE METER 255 mg/dL 70-110 H : TESTED A T [facility] [address] (BEAKER) (test code [address], = 1538) [place] [address]: Director Supply/Techni cornelia ID = [id number] for Crystal savanah Karina POCT-GLUCOSE [id number] 07:53:00 Test Item Value Reference Range Interpretation Comments POC-GLUCOSE METER 296 mg/dL 70-110 H : TESTED A T [facility] [address] (BEAKER) (test code [address], = 1538) [place] [address]: Director Supply/Techni cornelia ID = [id number] for Buff ord, Jesi BASIC METABOLIC [id number] 06:06:00 Test Item Value Reference Range Interpretation [...] S NOT APPLICABLE FOR DIALYSIS PATIEN TS. Director Supply ID - ANSBERTOGOperator ID - ANSBERTOGOperator ID - ANSBERTOGOperator ID - ANSBERTOGOperatorID - ANSBERTOGOperator ID - ANSBERTOGOperator ID - ANSBERTOGOperator ID - ANSBERTOGOperator ID - ANSBERTOGOperator ID - ANSBERTOGOperator ID - ANSBERTOGOperator ID - ANSBERTOGOperator ID - ANSBERTOG POCT-GLUCOSE [id number] 20:54:00 Test Item Value Reference Range Interpretation Comments POC-GLUCOSE METER 252 mg/dL 70-110 H : TESTED A T [facility] [address] (BEAKER) (test code [address], = 1538) [place] [address]: Director Supply/Techni cornelia ID = [id number] for gordon Whitehead POCT-GLUCOSE [id number] 15:59:00 Test Item Value Reference Range Interpretation Comments POC-GLUCOSE METER 335 mg/dL 70-110 H : TESTED A T [facility] (BEAKER) (test code [address], = 1538) [place] [address]: Director Supply/Techni cornelia ID = [id number] for Tiff Roach POCT-GLUCOSE [id number] 15:24:00 Test Item Value Reference Range Interpretation Comments POC-GLUCOSE METER 356 mg/dL 70-110 H : TESTED A T [address] (BEAKER) (test code [address], = 1538) [facility] [address]: Director Supply/Techni cornelia ID = [id number] for Tiff Roach POCT-GLUCOSE [id number] 07:46:00 Test Item Value Reference Range Interpretation Comments POC-GLUCOSE METER 281 mg/dL 70-110 H : TESTED A T [facility] [address] (BEAKER) (test code [address], = 1538) [place] [address]: Director Supply/Techni cornelia ID = [id number] for Tiff Roach Hemoglobin [id number] 06:09:00 Test Item Value Reference Range Interpretation Comments Hemoglobin A1C (test code 12.3 % 4.3-6.1 H = 4548-4) ISSA (test code = ISSA) Director Supply ID - [id number] Lab Interpretation (test Abnormal code = 29606-3) [facility] [id number] 06:09:00 Test Item Value Reference Range Interpretation Comments Hemoglobin A1C (test code 12.3 % 4.3-6.1 H = 4548-4) ISSA (test code = ISSA) Director Supply ID - [id number] Lab Interpretation (test Abnormal code = 89423-9) [facility] [id number] 06:09:00 Test Item Value Reference Range Interpretation Comments Hemoglobin A1C (test code 12.3 % 4.3-6.1 H = 4548-4) ISSA (test code = ISSA) Director Supply ID - [id number] Lab Interpretation (test Abnormal code = 61144-4) [facility] [id number] 06:09:00 Test Item Value Reference Range Interpretation Comments Hemoglobin A1C (test code 12.3 % 4.3-6.1 H = 4548-4) ISSA (test code = ISSA) Director Supply ID - [id number] Lab Interpretation (test Abnormal code = 40727-4) [facility] [id number] 06:09:00 Test Item Value Reference Range Interpretation Comments Hemoglobin A1C (test code 12.3 % 4.3-6.1 H = 4548-4) ISSA (test code = ISSA) Director Supply ID - [id number] Lab Interpretation (test Abnormal code = 29439-0) [facility] [id number] 06:09:00 Test Item Value Reference Range Interpretation Comments Hemoglobin A1C (test code 12.3 % 4.3-6.1 H = 4548-4) ISSA (test code = ISSA) Director Supply ID - [id number] Lab Interpretation (test Abnormal code = 35873-2) [facility] [id number] 06:09:00 Test Item Value Reference Range Interpretation Comments Hemoglobin A1C (test code 12.3 % 4.3-6.1 H = 4548-4) ISSA (test code = ISSA) Director Supply ID - [id number] Lab Interpretation (test Abnormal code = 66754-0) [facility] [id number] 06:09:00 Test Item Value Reference Range Interpretation Comments HEMOGLOBIN A1C (BEAKER) (test code = 12.3 % 4.3-6.1 H 368) Director Supply ID - JBERNBASIC METABOLIC [id number] 06:04:00 Test Item Value Reference Range Interpretation [...] S NOT APPLICABLE FOR DIALYSIS PATIEN TS. Director Supply ID - ANSBERTOGOperator ID - ANSBERTOGOperator ID - ANSBERTOGOperator ID - ANSBERTOGOperatorID - ANSBERTOGOperator ID - ANSBERTOGOperator ID - ANSBERTOGOperator ID - ANSBERTOGOperator ID - ANSBERTOGOperator ID - ANSBERTOGOperator ID - ANSBERTOGOperator ID - ANSBERTOGOperator ID - ANSBERTOG CBC W/PLT COUNT & AUTO [id number] 05:38:00 Test Item Value Reference Range Interpretation [...] = 2801) CBC W/PLT COUNT & AUTO [id number] 22:16:00 Test Item Value Reference Range Interpretation [...] PERCENT (BEAKER) (test code = 2801) POCT-GLUCOSE [id number] 22:12:00 Test Item Value Reference Range Interpretation Comments POC-GLUCOSE METER 396 mg/dL 70-110 H : TESTED A T [facility] [address]17 (BEAKER) (test code [facility] [address], = 1538) [facility] [address]: Director Supply/Techni cornelia ID = [id number] for Aanu siem, nikitaicity RAD, FOOT, MIN 3 VIEWS, [id number] 21:39:00Reason for exam:->L foot ulcer.[facility] 1975 Sex: MFINAL [...] MDReport Verified Date/Time: 03/30/2020 21:39:00 BASIC METABOLIC [id number] 21:34:00 Test Item Value Reference Range Interpretation [...] S NOT APPLICABLE FOR DIALYSIS PATIEN TS. Director Supply ID - JBERNOperator ID - JBERNOperator ID - JBERNOperator ID - JBERNOperator ID - JBERNOperator ID - JBERNOperator ID - JBERNOperator ID - JBERNOperator ID - JBERNOperator ID - JBERNOperator ID- JBERNOperator ID - JBERNOperator ID - JBERNSARS-COV2/RT-PCR ([facility])2020-03-30 21:04:00 Test Item Value Reference Range Interpretation Comments SARS-COV2/RT-PCR Negative Not Detected, (test code = 1557933) Negative, See external report for linked test SARS-COV-2 PERFORMING Perfor med @ [facility] (test code = 4685752) BLOOD [id number] 04:00:00 Test Item Value Reference Range Interpretation Comments CULTURE (BEAKER) (test No growth in 5 days code = 1095) BLOOD [id number] 04:00:00 Test Item Value Reference Range Interpretation Comments CULTURE (BEAKER) (test No growth in 5 days code = 1095) BASIC METABOLIC [id number] 01:36:00 Test Item Value Reference Range Interpretation [...] S NOT APPLICABLE FOR DIALYSIS PATIEN TS. Director Supply ID - [id number] ID - [id number] ID - ptic69Cauojsem ID - yepy27Smyizale ID - vgzk20Sygincst ID - zyor20Gaxpcgoa ID - ylxb22Smufsluv ID - xedf23Isdqyepe ID - lzcg98Ykbymorh ID - vshg27Yknoceld ID - ylbs11Edqujmsf ID - hmih00Telowmqo ID - afgn97I-Expvqnwz [id number] 01:34:00 Test Item Value Reference Range Interpretation Comments CRP (test code = 676) 0.66 mg/dL 0-0.5 H ISSA (test code = ISSA) Director Supply ID - [id number] Lab Interpretation (test Abnormal code = 15934-8) [facility] [id number] 01:34:00 Test Item Value Reference Range Interpretation Comments CRP (test code = 676) 0.66 mg/dL 0-0.5 H ISSA (test code = ISAS) Director Supply ID - [id number] Lab Interpretation (test Abnormal code = 72376-7) [facility] [id number] 01:34:00 Test Item Value Reference Range Interpretation Comments CRP (test code = 676) 0.66 mg/dL 0-0.5 H ISSA (test code = ISSA) Director Supply ID - [id number] Lab Interpretation (test Abnormal code = 50559-8) [facility] [id number] 01:34:00 Test Item Value Reference Range Interpretation Comments CRP (test code = 676) 0.66 mg/dL 0-0.5 H ISSA (test code = ISSA) Director Supply ID - [id number] Lab Interpretation (test Abnormal code = 64984-9) [facility] [id number] 01:34:00 Test Item Value Reference Range Interpretation Comments CRP (test code = 676) 0.66 mg/dL 0.00-0.50 H ISSA (test code = ISSA) Director Supply ID - [id number] Lab Interpretation (test Abnormal code = 58844-6) [facility] [id number] 01:34:00 Test Item Value Reference Range Interpretation Comments CRP (test code = 676) 0.66 mg/dL 0.00-0.50 H ISSA (test code = ISSA) Director Supply ID - [id number] Lab Interpretation (test Abnormal code = 95924-3) [facility] [id number] 01:34:00 Test Item Value Reference Range Interpretation Comments CRP (test code = 676) 0.66 mg/dL 0.00-0.50 H ISSA (test code = ISSA) Director Supply ID - [id number] Lab Interpretation (test Abnormal code = 17798-9) [facility] [id number] 01:34:00 Test Item Value Reference Range Interpretation Comments C-REACTIVE PROTEIN (BEAKER) (test 0.66 mg/dL 0.00-0.50 H code = 676) Director Supply ID - [id number] ACID, [id number] 01:33:00 Test Item Value Reference Range Interpretation Comments LACTATE BLOOD VENOUS (2) (BEAKER) 1.75 mmol/L 0.50-<2.00 (test code = 2872) Director Supply ID - [id number] ID - kpdi61Qwnmfhdu ID - ehxo70Dycqjlpz ID - [id number] CBC W/PLT COUNT & AUTO [id number] 01:21:00 Test Item Value Reference Range Interpretation [...] = 2801) RAD, FOOT, MIN 3 VIEWS, [id number] 00:51:00Reason for exam:->ABSCESS [facility] : 1975 Sex: MFINAL [...] 03/20/2020 00:51:45 Panel Description: Hemoglobin A1c/Hemoglobin.total in [id number] 11:40:00 Test Item Value Reference Range Interpretation Comments Hemoglobin A1c (test code 13.1 % 4.8-5.6 H = 4548-4) . Prediabetes: 5. 7 - 6.4 Diabete s: >6.4 Glycemi c control for niall lts with diabetes: <7.0

P erforme d by:
[facility] [place] ([place])

[facility] Description: Hemoglobin A1c/Hemoglobin.total in Blood 2020-03-07 11:40:00 Test Item Value Reference Range Interpretation Comments Hemoglobin A1c (test code 13.1 % 4.8-5.6 H = 4548-4) . Prediabetes: 5. 7 - 6.4 Diabete s: >6.4 Glycemi c control for niall lts with diabetes: <7.0

P erforme d by:
[facility] [place] ([place])

[facility] Description: Hemoglobin A1c/Hemoglobin.total in Blood 2020-03-07 11:40:00 Test Item Value Reference Range Interpretation Comments Hemoglobin A1c (test code 13.1 % 4.8-5.6 H = 4548-4) . Prediabetes: 5. 7 - 6.4 Diabete s: >6.4 Glycemi c control for niall lts with diabetes: <7.0

P erforme d by:
[facility] [place] ([place])

[facility] Description: Hemoglobin A1c/Hemoglobin.total in Blood 2020-03-07 11:40:00 Test Item Value Reference Range Interpretation Comments Hemoglobin A1c (test code 13.1 % 4.8-5.6 H = 4548-4) . Prediabetes: 5. 7 - 6.4 Diabete s: >6.4 Glycemi c control for niall lts with diabetes: <7.0

P erforme d by:
[facility] [place] ([place])

[facility] Description: Hemoglobin A1c/Hemoglobin.total in Blood 2020-03-07 11:40:00 Test Item Value Reference Range Interpretation Comments Hemoglobin A1c (test code 13.1 % 4.8-5.6 H = 4548-4) . Prediabetes: 5. 7 - 6.4 Diabete s: >6.4 Glycemi c control for niall lts with diabetes: <7.0

P erforme d by:
[facility] [place] ([place])

[facility] Description: Hemoglobin A1c/Hemoglobin.total in Blood 2020-03-07 11:40:00 Test Item Value Reference Range Interpretation Comments Hemoglobin A1c (test code 13.1 % 4.8-5.6 H = 4548-4) . Prediabetes: 5. 7 - 6.4 Diabete s: >6.4 Glycemi c control for niall lts with diabetes: <7.0

P erforme d by:
[facility] [place] ([place])

[facility] Description: Hemoglobin A1c/Hemoglobin.total in Blood 2020-03-07 11:40:00 Test Item Value Reference Range Interpretation Comments Hemoglobin A1c (test code 13.1 % 4.8-5.6 H = 4548-4) . Prediabetes: 5. 7 - 6.4 Diabete s: >6.4 Glycemi c control for niall lts with diabetes: <7.0

P erforme d by:
[facility] [place] ([place])

[facility] Description: Hemoglobin A1c/Hemoglobin.total in Blood 2020-03-07 11:40:00 Test Item Value Reference Range Interpretation Comments Hemoglobin A1c (test code 13.1 % 4.8-5.6 H = 4548-4) . Prediabetes: 5. 7 - 6.4 Diabete s: >6.4 Glycemi c control for niall lts with diabetes: <7.0

P erforme d by:
[facility] [place] ([place])

[facility] Description: Hemoglobin A1c/Hemoglobin.total in Blood 2020-03-07 11:40:00 Test Item Value Reference Range Interpretation Comments Hemoglobin A1c (test code 13.1 % 4.8-5.6 H = 4548-4) . Prediabetes: 5. 7 - 6.4 Diabete s: >6.4 Glycemi c control for niall lts with diabetes: <7.0

P erforme d by:
[facility] [place] ([place])

[facility] Description: Hemoglobin A1c/Hemoglobin.total in Blood 2020-03-07 11:40:00 Test Item Value Reference Range Interpretation Comments Hemoglobin A1c (test code 13.1 % 4.8-5.6 H = 4548-4) . Prediabetes: 5. 7 - 6.4 Diabete s: >6.4 Glycemi c control for niall lts with diabetes: <7.0

P erforme d by:
[facility] [place] ([place])

[facility] Description: Hemoglobin A1c/Hemoglobin.total in Blood 2020-03-07 11:40:00 Test Item Value Reference Range Interpretation Comments Hemoglobin A1c (test code 13.1 % 4.8-5.6 H = 4548-4) . Prediabetes: 5. 7 - 6.4 Diabete s: >6.4 Glycemi c control for niall lts with diabetes: <7.0

P erforme d by:
[facility] [place] ([place])

[facility] Description: Hemoglobin A1c/Hemoglobin.total in Blood 2020-03-07 11:40:00 Test Item Value Reference Range Interpretation Comments Hemoglobin A1c (test code 13.1 % 4.8-5.6 H = 4548-4) . Prediabetes: 5. 7 - 6.4 Diabete s: >6.4 Glycemi c control for niall lts with diabetes: <7.0

P erforme d by:
[facility] [place] ([place])

[facility] Description: Hemoglobin A1c/Hemoglobin.total in Blood 2020-03-07 11:40:00 Test Item Value Reference Range Interpretation Comments Hemoglobin A1c (test code 13.1 % 4.8-5.6 H = 4548-4) . Prediabetes: 5. 7 - 6.4 Diabete s: >6.4 Glycemi c control for niall lts with diabetes: <7.0

P erforme d by:
[facility] [place] ([place])

[facility] Description: Hemoglobin A1c/Hemoglobin.total in Blood 2020-03-07 11:40:00 Test Item Value Reference Range Interpretation Comments Hemoglobin A1c (test code 13.1 % 4.8-5.6 H = 4548-4) . Prediabetes: 5. 7 - 6.4 Diabete s: >6.4 Glycemi c control for niall lts with diabetes: <7.0

P erforme d by:
[facility] [place] ([place])

[facility] Description: Hemoglobin A1c/Hemoglobin.total in Blood 2020-03-07 11:40:00 Test Item Value Reference Range Interpretation Comments Hemoglobin A1c (test code 13.1 % 4.8-5.6 H = 4548-4) . Prediabetes: 5. 7 - 6.4 Diabete s: >6.4 Glycemi c control for niall lts with diabetes: <7.0

P erforme d by:
[facility] [place] ([place])

[facility] Description: Hemoglobin A1c/Hemoglobin.total in Blood 2020-03-07 11:40:00 Test Item Value Reference Range Interpretation Comments Hemoglobin A1c (test code 13.1 % 4.8-5.6 H = 4548-4) . Prediabetes: 5. 7 - 6.4 Diabete s: >6.4 Glycemi c control for niall lts with diabetes: <7.0

P erforme d by:
[facility] [place] ([place])

[facility] Description: Hemoglobin A1c/Hemoglobin.total in Blood 2020-03-07 11:40:00 Test Item Value Reference Range Interpretation Comments Hemoglobin A1c (test code 13.1 % 4.8-5.6 H = 4548-4) . Prediabetes: 5. 7 - 6.4 Diabete s: >6.4 Glycemi c control for niall lts with diabetes: <7.0

P erforme d by:
[facility] [place] ([place])

[facility] Description: Hemoglobin A1c/Hemoglobin.total in Blood 2020-03-07 11:40:00 Test Item Value Reference Range Interpretation Comments Hemoglobin A1c (test code 13.1 % 4.8-5.6 H = 4548-4) . Prediabetes: 5. 7 - 6.4 Diabete s: >6.4 Glycemi c control for niall lts with diabetes: <7.0

P erforme d by:
[facility] [place] ([place])

[facility] Description: Hemoglobin A1c/Hemoglobin.total in Blood 2020-03-07 11:40:00 Test Item Value Reference Range Interpretation Comments Hemoglobin A1c (test code 13.1 % 4.8-5.6 H = 4548-4) . Prediabetes: 5. 7 - 6.4 Diabete s: >6.4 Glycemi c control for niall lts with diabetes: <7.0

P erforme d by:
[facility] [place] ([place])

[facility] Description: Hemoglobin A1c/Hemoglobin.total in Blood 2020-03-07 11:40:00 Test Item Value Reference Range Interpretation Comments Hemoglobin A1c (test code 13.1 % 4.8-5.6 H = 4548-4) . Prediabetes: 5. 7 - 6.4 Diabete s: >6.4 Glycemi c control for niall lts with diabetes: <7.0

P erforme d by:
[facility] [place] ([place])

[facility] Description: Hemoglobin A1c/Hemoglobin.total in Blood 2020-03-07 11:40:00 Test Item Value Reference Range Interpretation Comments Hemoglobin A1c (test code 13.1 % 4.8-5.6 H = 4548-4) . Prediabetes: 5. 7 - 6.4 Diabete s: >6.4 Glycemi c control for niall lts with diabetes: <7.0

P erforme d by:
[facility] [place] ([place])

[facility] Description: Hemoglobin A1c/Hemoglobin.total in Blood 2020-03-07 11:40:00 Test Item Value Reference Range Interpretation Comments Hemoglobin A1c (test code 13.1 % 4.8-5.6 H = 4548-4) . Prediabetes: 5. 7 - 6.4 Diabete s: >6.4 Glycemi c control for niall lts with diabetes: <7.0

P erforme d by:
[facility] [place] ([place])

[facility] Description: Hemoglobin A1c/Hemoglobin.total in Blood 2020-03-07 11:40:00 Test Item Value Reference Range Interpretation Comments Hemoglobin A1c (test code 13.1 % 4.8-5.6 H = 4548-4) . Prediabetes: 5. 7 - 6.4 Diabete s: >6.4 Glycemi c control for niall lts with diabetes: <7.0

P erforme d by:
[facility] [place] ([place])

[facility] Description: Hemoglobin A1c/Hemoglobin.total in Blood 2020-03-07 11:40:00 Test Item Value Reference Range Interpretation Comments Hemoglobin A1c (test code 13.1 % 4.8-5.6 H = 4548-4) . Prediabetes: 5. 7 - 6.4 Diabete s: >6.4 Glycemi c control for niall lts with diabetes: <7.0

P erforme d by:
[facility] [place] ([place])

[facility] Description: Hemoglobin A1c/Hemoglobin.total in Blood 2020-03-07 11:40:00 Test Item Value Reference Range Interpretation Comments Hemoglobin A1c (test code 13.1 % 4.8-5.6 H = 4548-4) . Prediabetes: 5. 7 - 6.4 Diabete s: >6.4 Glycemi c control for niall lts with diabetes: <7.0

P erforme d by:
[facility] ([place])

[facility] [employer] Description: Hemoglobin A1c/Hemoglobin.total in Blood 2020-03-07 11:40:00 Test Item Value Reference Range Interpretation Comments Hemoglobin A1c (test code 13.1 % 4.8-5.6 H = 4548-4) . Prediabetes: 5. 7 - 6.4 Diabete s: >6.4 Glycemi c control for niall lts with diabetes: <7.0

P erforme d by:
[facility] ([place])

[facility] [employer] Description: Lipid [id number] 08:03:00 Test Item Value Reference Range Interpretation Comments Cholesterol, Total (test code = 209 mg/dL 100-199 H 2093-3) Triglycerides (test code = 2571-8) 172 mg/dL 0-149 H HDL Cholesterol (test code = 29 mg/dL >39 L 5-9) VLDL Cholesterol Renuka (test code = 32 mg/dL 5-40 49668-2) LDL Chol Calc (NIH) (test code = 148 mg/dL 0-99 H 24105-6) Comment: (test code = 26064-6) [facility] Description: Lipid [id number] 08:03:00 Test Item Value Reference Range Interpretation Comments Cholesterol, Total (test code = 209 mg/dL 100-199 H 2093-3) Triglycerides (test code = 2571-8) 172 mg/dL 0-149 H HDL Cholesterol (test code = 29 mg/dL >39 L 5-9) VLDL Cholesterol Renuka (test code = 32 mg/dL 5-40 97554-4) LDL Chol Calc (NIH) (test code = 148 mg/dL 0-99 H 55620-1) Comment: (test code = 69028-0) [employer] Description: Lipid [id number] 08:03:00 Test Item Value Reference Range Interpretation Comments Cholesterol, Total (test code = 209 mg/dL 100-199 H 2093-3) Triglycerides (test code = 2571-8) 172 mg/dL 0-149 H HDL Cholesterol (test code = 29 mg/dL >39 L 2085-9) VLDL Cholesterol Renuka (test code = 32 mg/dL 5-40 16941-8) LDL Chol Calc (NIH) (test code = 148 mg/dL 0-99 H 94415-2) Comment: (test code = 84655-4) [employer] Description: Lipid [id number] 08:03:00 Test Item Value Reference Range Interpretation Comments Cholesterol, Total (test code = 209 mg/dL 100-199 H 2093-3) Triglycerides (test code = 2571-8) 172 mg/dL 0-149 H HDL Cholesterol (test code = 29 mg/dL >39 L 2085-9) VLDL Cholesterol Renuka (test code = 32 mg/dL 5-40 21588-4) LDL Chol Calc (NIH) (test code = 148 mg/dL 0-99 H 35615-1) Comment: (test code = 55115-9) [employer] Description: Lipid [id number] 08:03:00 Test Item Value Reference Range Interpretation Comments Cholesterol, Total (test code = 209 mg/dL 100-199 H 2093-3) Triglycerides (test code = 2571-8) 172 mg/dL 0-149 H HDL Cholesterol (test code = 29 mg/dL >39 L 2085-9) VLDL Cholesterol Renuka (test code = 32 mg/dL 5-40 20537-4) LDL Chol Calc (NIH) (test code = 148 mg/dL 0-99 H 59605-8) Comment: (test code = 04962-9) [employer] Description: Lipid [id number] 08:03:00 Test Item Value Reference Range Interpretation Comments Cholesterol, Total (test code = 209 mg/dL 100-199 H 2093-3) Triglycerides (test code = 2571-8) 172 mg/dL 0-149 H HDL Cholesterol (test code = 29 mg/dL >39 L 2085-9) VLDL Cholesterol Renuka (test code = 32 mg/dL 5-40 72660-0) LDL Chol Calc (NIH) (test code = 148 mg/dL 0-99 H 93388-8) Comment: (test code = 76207-2) [employer] Description: Lipid [id number] 08:03:00 Test Item Value Reference Range Interpretation Comments Cholesterol, Total (test code = 209 mg/dL 100-199 H 2093-3) Triglycerides (test code = 2571-8) 172 mg/dL 0-149 H HDL Cholesterol (test code = 29 mg/dL >39 L 2085-9) VLDL Cholesterol Renuka (test code = 32 mg/dL 5-40 20346-8) LDL Chol Calc (NIH) (test code = 148 mg/dL 0-99 H 74679-8) Comment: (test code = 83524-8) [employer] Description: Lipid [id number] 08:03:00 Test Item Value Reference Range Interpretation Comments Cholesterol, Total (test code = 209 mg/dL 100-199 H 2093-3) Triglycerides (test code = 2571-8) 172 mg/dL 0-149 H HDL Cholesterol (test code = 29 mg/dL >39 L 2085-9) VLDL Cholesterol Renuka (test code = 32 mg/dL 5-40 17178-7) LDL Chol Calc (NIH) (test code = 148 mg/dL 0-99 H 90619-7) Comment: (test code = 78258-9) [employer] Description: Lipid [id number] 08:03:00 Test Item Value Reference Range Interpretation Comments Cholesterol, Total (test code = 209 mg/dL 100-199 H 2093-3) Triglycerides (test code = 2571-8) 172 mg/dL 0-149 H HDL Cholesterol (test code = 29 mg/dL >39 L 2085-9) VLDL Cholesterol Renuka (test code = 32 mg/dL 5-40 29020-2) LDL Chol Calc (NIH) (test code = 148 mg/dL 0-99 H 69638-5) Comment: (test code = 87140-4) [facility] Description: Lipid [id number] 08:03:00 Test Item Value Reference Range Interpretation Comments Cholesterol, Total (test code = 209 mg/dL 100-199 H 2093-3) Triglycerides (test code = 2571-8) 172 mg/dL 0-149 H HDL Cholesterol (test code = 29 mg/dL >39 L 2085-9) VLDL Cholesterol Renuka (test code = 32 mg/dL 5-40 95188-7) LDL Chol Calc (NIH) (test code = 148 mg/dL 0-99 H 08748-0) Comment: (test code = 15348-8) [facility] Description: Lipid [id number] 08:03:00 Test Item Value Reference Range Interpretation Comments Cholesterol, Total (test code = 209 mg/dL 100-199 H 2093-3) Triglycerides (test code = 2571-8) 172 mg/dL 0-149 H HDL Cholesterol (test code = 29 mg/dL >39 L 2085-9) VLDL Cholesterol Renuka (test code = 32 mg/dL 5-40 32432-6) LDL Chol Calc (NIH) (test code = 148 mg/dL 0-99 H 69609-4) Comment: (test code = 93395-6) [employer] Description: Lipid [id number] 08:03:00 Test Item Value Reference Range Interpretation Comments Cholesterol, Total (test code = 209 mg/dL 100-199 H 2093-3) Triglycerides (test code = 2571-8) 172 mg/dL 0-149 H HDL Cholesterol (test code = 29 mg/dL >39 L 5-9) VLDL Cholesterol Renuka (test code = 32 mg/dL 5-40 37767-8) LDL Chol Calc (NIH) (test code = 148 mg/dL 0-99 H 97397-1) Comment: (test code = 82876-1) [employer] Description: Lipid [id number] 08:03:00 Test Item Value Reference Range Interpretation Comments Cholesterol, Total (test code = 209 mg/dL 100-199 H 2093-3) Triglycerides (test code = 2571-8) 172 mg/dL 0-149 H HDL Cholesterol (test code = 29 mg/dL >39 L 2085-9) VLDL Cholesterol Renuka (test code = 32 mg/dL 5-40 16893-8) LDL Chol Calc (NIH) (test code = 148 mg/dL 0-99 H 46885-7) Comment: (test code = 42116-1) [employer] Description: Lipid [id number] 08:03:00 Test Item Value Reference Range Interpretation Comments Cholesterol, Total (test code = 209 mg/dL 100-199 H 2093-3) Triglycerides (test code = 2571-8) 172 mg/dL 0-149 H HDL Cholesterol (test code = 29 mg/dL >39 L 5-9) VLDL Cholesterol Renuka (test code = 32 mg/dL 5-40 02673-6) LDL Chol Calc (NIH) (test code = 148 mg/dL 0-99 H 51745-5) Comment: (test code = 87784-7) [employer] Description: Lipid [id number] 08:03:00 Test Item Value Reference Range Interpretation Comments Cholesterol, Total (test code = 209 mg/dL 100-199 H 3-3) Triglycerides (test code = 2571-8) 172 mg/dL 0-149 H HDL Cholesterol (test code = 29 mg/dL >39 L 5-9) VLDL Cholesterol Renuka (test code = 32 mg/dL 5-40 04021-8) LDL Chol Calc (NIH) (test code = 148 mg/dL 0-99 H 71213-8) Comment: (test code = 78817-0) [employer] Description: Lipid [id number] 08:03:00 Test Item Value Reference Range Interpretation Comments Cholesterol, Total (test code = 209 mg/dL 100-199 H 3-3) Triglycerides (test code = 2571-8) 172 mg/dL 0-149 H HDL Cholesterol (test code = 29 mg/dL >39 L 5-9) VLDL Cholesterol Renuka (test code = 32 mg/dL 5-40 03341-3) LDL Chol Calc (NIH) (test code = 148 mg/dL 0-99 H 37899-3) Comment: (test code = 84346-6) [facility] Description: Lipid [id number] 08:03:00 Test Item Value Reference Range Interpretation Comments Cholesterol, Total (test code = 209 mg/dL 100-199 H 3-3) Triglycerides (test code = 2571-8) 172 mg/dL 0-149 H HDL Cholesterol (test code = 29 mg/dL >39 L 2085-9) VLDL Cholesterol Renuka (test code = 32 mg/dL 5-40 22434-4) LDL Chol Calc (NIH) (test code = 148 mg/dL 0-99 H 52384-7) Comment: (test code = 61111-4) [facility] Description: Lipid [id number] 08:03:00 Test Item Value Reference Range Interpretation Comments Cholesterol, Total (test code = 209 mg/dL 100-199 H 2093-3) Triglycerides (test code = 2571-8) 172 mg/dL 0-149 H HDL Cholesterol (test code = 29 mg/dL >39 L 2085-9) VLDL Cholesterol Renuka (test code = 32 mg/dL 5-40 15611-2) LDL Chol Calc (NIH) (test code = 148 mg/dL 0-99 H 10257-8) Comment: (test code = 91362-8) [employer] Description: Lipid [id number] 08:03:00 Test Item Value Reference Range Interpretation Comments Cholesterol, Total (test code = 209 mg/dL 100-199 H 2093-3) Triglycerides (test code = 2571-8) 172 mg/dL 0-149 H HDL Cholesterol (test code = 29 mg/dL >39 L 2085-9) VLDL Cholesterol Renuka (test code = 32 mg/dL 5-40 77627-0) LDL Chol Calc (NIH) (test code = 148 mg/dL 0-99 H 37418-7) Comment: (test code = 13698-7) [employer] Description: Lipid [id number] 08:03:00 Test Item Value Reference Range Interpretation Comments Cholesterol, Total (test code = 209 mg/dL 100-199 H 2093-3) Triglycerides (test code = 2571-8) 172 mg/dL 0-149 H HDL Cholesterol (test code = 29 mg/dL >39 L 2085-9) VLDL Cholesterol Renuka (test code = 32 mg/dL 5-40 13048-0) LDL Chol Calc (NIH) (test code = 148 mg/dL 0-99 H 46471-1) Comment: (test code = 24795-0) [employer] Description: Lipid [id number] 08:03:00 Test Item Value Reference Range Interpretation Comments Cholesterol, Total (test code = 209 mg/dL 100-199 H 2093-3) Triglycerides (test code = 2571-8) 172 mg/dL 0-149 H HDL Cholesterol (test code = 29 mg/dL >39 L 2085-9) VLDL Cholesterol Renuka (test code = 32 mg/dL 5-40 41512-7) LDL Chol Calc (NIH) (test code = 148 mg/dL 0-99 H 90340-0) Comment: (test code = 59343-2) [employer] Description: Lipid [id number] 08:03:00 Test Item Value Reference Range Interpretation Comments Cholesterol, Total (test code = 209 mg/dL 100-199 H 2093-3) Triglycerides (test code = 2571-8) 172 mg/dL 0-149 H HDL Cholesterol (test code = 29 mg/dL >39 L 5-9) VLDL Cholesterol Renuka (test code = 32 mg/dL 5-40 36890-0) LDL Chol Calc (NIH) (test code = 148 mg/dL 0-99 H 70259-8) Comment: (test code = 04649-4) [employer] Description: Lipid [id number] 08:03:00 Test Item Value Reference Range Interpretation Comments Cholesterol, Total (test code = 209 mg/dL 100-199 H 2093-3) Triglycerides (test code = 2571-8) 172 mg/dL 0-149 H HDL Cholesterol (test code = 29 mg/dL >39 L 5-9) VLDL Cholesterol Renuka (test code = 32 mg/dL 5-40 48117-6) LDL Chol Calc (NIH) (test code = 148 mg/dL 0-99 H 73603-3) Comment: (test code = 34694-1) [employer] Description: Lipid [id number] 08:03:00 Test Item Value Reference Range Interpretation Comments Cholesterol, Total (test code = 209 mg/dL 100-199 H 2093-3) Triglycerides (test code = 2571-8) 172 mg/dL 0-149 H HDL Cholesterol (test code = 29 mg/dL >39 L 5-9) VLDL Cholesterol Renuka (test code = 32 mg/dL 5-40 32494-5) LDL Chol Calc (NIH) (test code = 148 mg/dL 0-99 H 69478-6) Comment: (test code = 21790-2) [employer] Description: Lipid [id number] 08:03:00 Test Item Value Reference Range Interpretation Comments Cholesterol, Total (test code = 209 mg/dL 100-199 H 2093-3) Triglycerides (test code = 2571-8) 172 mg/dL 0-149 H HDL Cholesterol (test code = 29 mg/dL >39 L 2085-9) VLDL Cholesterol Renuka (test code = 32 mg/dL 5-40 72679-9) LDL Chol Calc (NIH) (test code = 148 mg/dL 0-99 H 93133-9) Comment: (test code = 78672-0) [employer] Description: Lipid [id number] 08:03:00 Test Item Value Reference Range Interpretation Comments Cholesterol, Total (test code = 209 mg/dL 100-199 H 2093-3) Triglycerides (test code = 2571-8) 172 mg/dL 0-149 H HDL Cholesterol (test code = 29 mg/dL >39 L 5-9) VLDL Cholesterol Renuka (test code = 32 mg/dL 5-40 51723-3) LDL Chol Calc (NIH) (test code = 148 mg/dL 0-99 H 11352-6) Comment: (test code = 28948-8) [employer] Description: Comp. Metabolic Panel (14)2020-03-07 06:49:00 Test Item Value Reference Range Interpretation Comments Glucose (test code = 2345-7) 441 mg/dL 65-99 H BUN (test code = 3094-0) 52 mg/dL 6-24 H Creatinine (test code = 2.05 mg/dL 0.76-1.27 H 2160-0) eGFR If NonAfricn Am (test 38 mL/min/1.73 >59 L code = 18155-2) eGFR If Africn Am (test code = 44 mL/min/1.73 >59 L 33704-2) BUN/Creatinine Ratio (test 25 9-20 H code = 3097-3) Sodium (test code = 2951-2) 138 mmol/L 134-144 Potassium (test code = 2823-3) 5.4 mmol/L 3.5-5.2 H Chloride (test code = 2075-0) 96 mmol/L 96-106 Carbon Dioxide, Total (test 29 mmol/L 20-29 code = 8-9) Calcium (test code = 75899-8) 9.2 mg/dL 8.7-10.2 Protein, Total (test code = 6.2 g/dL 6.0-8.5 2885-2) Albumin (test code = 1751-7) 3.4 g/dL 4.0-5.0 L Globulin, Total (test code = 2.8 g/dL 1.5-4.5 78361-1) A/G Ratio (test code = 1759-0) 1.2 [...] (test 38 mL/min/1.73 >59 L code = 80982-5) eGFR If Africn Am (test code = 44 mL/min/1.73 >59 L 45541-4) BUN/Creatinine Ratio (test 25 9-20 H code = 3097-3) Sodium (test code = 2951-2) 138 mmol/L 134-144 Potassium (test code = 2823-3) 5.4 mmol/L 3.5-5.2 H Chloride (test code = 2075-0) 96 mmol/L 96-106 Carbon Dioxide, Total (test 29 mmol/L 20-29 code = 8-9) Calcium (test code = 63225-3) 9.2 mg/dL 8.7-10.2 Protein, Total (test code = 6.2 g/dL 6.0-8.5 2885-2) Albumin (test code = 1751-7) 3.4 g/dL 4.0-5.0 L Globulin, Total (test code = 2.8 g/dL 1.5-4.5 91461-9) A/G Ratio (test code = 1759-0) 1.2 [...] (test 38 mL/min/1.73 >59 L code = 25934-4) eGFR If Africn Am (test code = 44 mL/min/1.73 >59 L 06087-1) BUN/Creatinine Ratio (test 25 9-20 H code = 3097-3) Sodium (test code = 2951-2) 138 mmol/L 134-144 Potassium (test code = 2823-3) 5.4 mmol/L 3.5-5.2 H Chloride (test code = 2075-0) 96 mmol/L 96-106 Carbon Dioxide, Total (test 29 mmol/L 20-29 code = 2027-9) Calcium (test code = 08246-3) 9.2 mg/dL 8.7-10.2 Protein, Total (test code = 6.2 g/dL 6.0-8.5 2885-2) Albumin (test code = 1751-7) 3.4 g/dL 4.0-5.0 L Globulin, Total (test code = 2.8 g/dL 1.5-4.5 02376-7) A/G Ratio (test code = 1759-0) 1.2 [...] (test 38 mL/min/1.73 >59 L code = 05180-3) eGFR If Africn Am (test code = 44 mL/min/1.73 >59 L 44864-3) BUN/Creatinine Ratio (test 25 9-20 H code = 3097-3) Sodium (test code = 2951-2) 138 mmol/L 134-144 Potassium (test code = 2823-3) 5.4 mmol/L 3.5-5.2 H Chloride (test code = 2075-0) 96 mmol/L 96-106 Carbon Dioxide, Total (test 29 mmol/L 20-29 code = 8-9) Calcium (test code = 42770-9) 9.2 mg/dL 8.7-10.2 Protein, Total (test code = 6.2 g/dL 6.0-8.5 2885-2) Albumin (test code = 1751-7) 3.4 g/dL 4.0-5.0 L Globulin, Total (test code = 2.8 g/dL 1.5-4.5 98423-6) A/G Ratio (test code = 1759-0) 1.2 [...] (test 38 mL/min/1.73 >59 L code = 20843-5) eGFR If Africn Am (test code = 44 mL/min/1.73 >59 L 13478-1) BUN/Creatinine Ratio (test 25 9-20 H code = 3097-3) Sodium (test code = 2951-2) 138 mmol/L 134-144 Potassium (test code = 2823-3) 5.4 mmol/L 3.5-5.2 H Chloride (test code = 2075-0) 96 mmol/L 96-106 Carbon Dioxide, Total (test 29 mmol/L 20-29 code = 2027-9) Calcium (test code = 99069-5) 9.2 mg/dL 8.7-10.2 Protein, Total (test code = 6.2 g/dL 6.0-8.5 2885-2) Albumin (test code = 1751-7) 3.4 g/dL 4.0-5.0 L Globulin, Total (test code = 2.8 g/dL 1.5-4.5 21044-9) A/G Ratio (test code = 1759-0) 1.2 [...] (test 38 mL/min/1.73 >59 L code = 78605-5) eGFR If Africn Am (test code = 44 mL/min/1.73 >59 L 80257-2) BUN/Creatinine Ratio (test 25 9-20 H code = 3097-3) Sodium (test code = 2951-2) 138 mmol/L 134-144 Potassium (test code = 2823-3) 5.4 mmol/L 3.5-5.2 H Chloride (test code = 2075-0) 96 mmol/L 96-106 Carbon Dioxide, Total (test 29 mmol/L 20-29 code = 2027-9) Calcium (test code = 02542-8) 9.2 mg/dL 8.7-10.2 Protein, Total (test code = 6.2 g/dL 6.0-8.5 2885-2) Albumin (test code = 1751-7) 3.4 g/dL 4.0-5.0 L Globulin, Total (test code = 2.8 g/dL 1.5-4.5 95557-1) A/G Ratio (test code = 1759-0) 1.2 [...] (test 38 mL/min/1.73 >59 L code = 13592-6) eGFR If Africn Am (test code = 44 mL/min/1.73 >59 L 84565-0) BUN/Creatinine Ratio (test 25 9-20 H code = 3097-3) Sodium (test code = 2951-2) 138 mmol/L 134-144 Potassium (test code = 2823-3) 5.4 mmol/L 3.5-5.2 H Chloride (test code = 2075-0) 96 mmol/L 96-106 Carbon Dioxide, Total (test 29 mmol/L 20-29 code = 8-9) Calcium (test code = 79409-1) 9.2 mg/dL 8.7-10.2 Protein, Total (test code = 6.2 g/dL 6.0-8.5 2885-2) Albumin (test code = 1751-7) 3.4 g/dL 4.0-5.0 L Globulin, Total (test code = 2.8 g/dL 1.5-4.5 73188-1) A/G Ratio (test code = 1759-0) 1.2 1.2-2.2 Bilirubin, Total (test code = 0.5 mg/dL 0.0-1.2 1975-2) Alkaline Phosphatase (test 112 IU/L 39-117 code = 6768-6) AST (SGOT) (test code = 21 IU/L 0-40 1920-8) ALT (SGPT) (test code = 31 IU/L 0-44 1742-6) [facility] Description: Comp. Metabolic Panel (142020-03-07 06:49:00 Test Item Value Reference Range Interpretation Comments Glucose (test code = 2345-7) 441 mg/dL 65-99 H BUN (test code = 3094-0) 52 mg/dL 6-24 H Creatinine (test code = 2.05 mg/dL 0.76-1.27 H 2160-0) eGFR If NonAfricn Am (test 38 mL/min/1.73 >59 L code = 59957-3) eGFR If Africn Am (test code = 44 mL/min/1.73 >59 L 53032-3) BUN/Creatinine Ratio (test 25 9-20 H code = 3097-3) Sodium (test code = 2951-2) 138 mmol/L 134-144 Potassium (test code = 2823-3) 5.4 mmol/L 3.5-5.2 H Chloride (test code = 2075-0) 96 mmol/L 96-106 Carbon Dioxide, Total (test 29 mmol/L 20-29 code = 2027-9) Calcium (test code = 31128-3) 9.2 mg/dL 8.7-10.2 Protein, Total (test code = 6.2 g/dL 6.0-8.5 2885-2) Albumin (test code = 1751-7) 3.4 g/dL 4.0-5.0 L Globulin, Total (test code = 2.8 g/dL 1.5-4.5 87757-3) A/G Ratio (test code = 1759-0) 1.2 1.2-2.2 Bilirubin, Total (test code = 0.5 mg/dL 0.0-1.2 1975-2) Alkaline Phosphatase (test 112 IU/L 39-117 code = 6768-6) AST (SGOT) (test code = 21 IU/L 0-40 1920-8) ALT (SGPT) (test code = 31 IU/L 0-44 1742-6) [facility] Description: Comp. Metabolic Panel (2020-03-07 06:49:00 Test Item Value Reference Range Interpretation Comments Glucose (test code = 2345-7) 441 mg/dL 65-99 H BUN (test code = 3094-0) 52 mg/dL 6-24 H Creatinine (test code = 2.05 mg/dL 0.76-1.27 H 2160-0) eGFR If NonAfricn Am (test 38 mL/min/1.73 >59 L code = 65208-2) eGFR If Africn Am (test code = 44 mL/min/1.73 >59 L 55500-5) BUN/Creatinine Ratio (test 25 9-20 H code = 3097-3) Sodium (test code = 2951-2) 138 mmol/L 134-144 Potassium (test code = 2823-3) 5.4 mmol/L 3.5-5.2 H Chloride (test code = 2075-0) 96 mmol/L 96-106 Carbon Dioxide, Total (test 29 mmol/L -29 code = 2027-) Calcium (test code = 44025-7) 9.2 mg/dL 8.7-10.2 Protein, Total (test code = 6.2 g/dL 6.0-8.5 2885-2) Albumin (test code = 1751-7) 3.4 g/dL 4.0-5.0 L Globulin, Total (test code = 2.8 g/dL 1.5-4.5 37202-0) A/G Ratio (test code = 1759-0) 1.2 1.2-2.2 Bilirubin, Total (test code = 0.5 mg/dL 0.0-1.2 1975-2) Alkaline Phosphatase (test 112 IU/L 39-117 code = 6768-6) AST (SGOT) (test code = 21 IU/L 0-40 1920-8) ALT (SGPT) (test code = 31 IU/L 0-44 1742-6) [facility] Description: Comp. Metabolic Panel (14)2020-03-07 06:49:00 Test Item Value Reference Range Interpretation Comments Glucose (test code = 2345-7) 441 mg/dL 65-99 H BUN (test code = 3094-0) 52 mg/dL 6-24 H Creatinine (test code = 2.05 mg/dL 0.76-1.27 H 2160-0) eGFR If NonAfricn Am (test 38 mL/min/1.73 >59 L code = 35486-8) eGFR If Africn Am (test code = 44 mL/min/1.73 >59 L 91032-8) BUN/Creatinine Ratio (test 25 9-20 H code = 3097-3) Sodium (test code = 2951-2) 138 mmol/L 134-144 Potassium (test code = 2823-3) 5.4 mmol/L 3.5-5.2 H Chloride (test code = 2075-0) 96 mmol/L 96-106 Carbon Dioxide, Total (test 29 mmol/L -29 code = 2027-9) Calcium (test code = 08377-3) 9.2 mg/dL 8.7-10.2 Protein, Total (test code = 6.2 g/dL 6.0-8.5 2885-2) Albumin (test code = 1751-7) 3.4 g/dL 4.0-5.0 L Globulin, Total (test code = 2.8 g/dL 1.5-4.5 91732-0) A/G Ratio (test code = 1759-0) 1.2 [...] (test 38 mL/min/1.73 >59 L code = 45006-9) eGFR If Africn Am (test code = 44 mL/min/1.73 >59 L 60601-8) BUN/Creatinine Ratio (test 25 9-20 H code = 3097-3) Sodium (test code = 2951-2) 138 mmol/L 134-144 Potassium (test code = 2823-3) 5.4 mmol/L 3.5-5.2 H Chloride (test code = 2075-0) 96 mmol/L 96-106 Carbon Dioxide, Total (test 29 mmol/L 20-29 code = 8-9) Calcium (test code = 79746-7) 9.2 mg/dL 8.7-10.2 Protein, Total (test code = 6.2 g/dL 6.0-8.5 2885-2) Albumin (test code = 1751-7) 3.4 g/dL 4.0-5.0 L Globulin, Total (test code = 2.8 g/dL 1.5-4.5 38934-5) A/G Ratio (test code = 1759-0) 1.2 [...] (test 38 mL/min/1.73 >59 L code = 95330-5) eGFR If Africn Am (test code = 44 mL/min/1.73 >59 L 25853-2) BUN/Creatinine Ratio (test 25 9-20 H code = 3097-3) Sodium (test code = 2951-2) 138 mmol/L 134-144 Potassium (test code = 2823-3) 5.4 mmol/L 3.5-5.2 H Chloride (test code = 2075-0) 96 mmol/L 96-106 Carbon Dioxide, Total (test 29 mmol/L 20-29 code = 8-9) Calcium (test code = 84496-7) 9.2 mg/dL 8.7-10.2 Protein, Total (test code = 6.2 g/dL 6.0-8.5 2885-2) Albumin (test code = 1751-7) 3.4 g/dL 4.0-5.0 L Globulin, Total (test code = 2.8 g/dL 1.5-4.5 55310-9) A/G Ratio (test code = 1759-0) 1.2 [...] (test 38 mL/min/1.73 >59 L code = 33148-0) eGFR If Africn Am (test code = 44 mL/min/1.73 >59 L 13943-1) BUN/Creatinine Ratio (test 25 9-20 H code = 3097-3) Sodium (test code = 2951-2) 138 mmol/L 134-144 Potassium (test code = 2823-3) 5.4 mmol/L 3.5-5.2 H Chloride (test code = 2075-0) 96 mmol/L 96-106 Carbon Dioxide, Total (test 29 mmol/L 20-29 code = 8-9) Calcium (test code = 94885-2) 9.2 mg/dL 8.7-10.2 Protein, Total (test code = 6.2 g/dL 6.0-8.5 2885-2) Albumin (test code = 1751-7) 3.4 g/dL 4.0-5.0 L Globulin, Total (test code = 2.8 g/dL 1.5-4.5 24325-9) A/G Ratio (test code = 1759-0) 1.2 [...] (test 38 mL/min/1.73 >59 L code = 09674-2) eGFR If Africn Am (test code = 44 mL/min/1.73 >59 L 73342-2) BUN/Creatinine Ratio (test 25 9-20 H code = 3097-3) Sodium (test code = 2951-2) 138 mmol/L 134-144 Potassium (test code = 2823-3) 5.4 mmol/L 3.5-5.2 H Chloride (test code = 2075-0) 96 mmol/L 96-106 Carbon Dioxide, Total (test 29 mmol/L 20-29 code = 8-9) Calcium (test code = 44966-3) 9.2 mg/dL 8.7-10.2 Protein, Total (test code = 6.2 g/dL 6.0-8.5 2885-2) Albumin (test code = 1751-7) 3.4 g/dL 4.0-5.0 L Globulin, Total (test code = 2.8 g/dL 1.5-4.5 01925-0) A/G Ratio (test code = 1759-0) 1.2 1.2-2.2 Bilirubin, Total (test code = 0.5 mg/dL 0.0-1.2 1975-2) Alkaline Phosphatase (test 112 IU/L 39-117 code = 6768-6) AST (SGOT) (test code = 21 IU/L 0-40 1920-8) ALT (SGPT) (test code = 31 IU/L 0-44 1742-6) [facility] Description: Comp. Metabolic Panel (14)2020-03-07 06:49:00 Test Item Value Reference Range Interpretation Comments Glucose (test code = 2345-7) 441 mg/dL 65-99 H BUN (test code = 3094-0) 52 mg/dL 6-24 H Creatinine (test code = 2.05 mg/dL 0.76-1.27 H 2160-0) eGFR If NonAfricn Am (test 38 mL/min/1.73 >59 L code = 63242-5) eGFR If Africn Am (test code = 44 mL/min/1.73 >59 L 55089-5) BUN/Creatinine Ratio (test 25 9-20 H code = 3097-3) Sodium (test code = 2951-2) 138 mmol/L 134-144 Potassium (test code = 2823-3) 5.4 mmol/L 3.5-5.2 H Chloride (test code = 2075-0) 96 mmol/L 96-106 Carbon Dioxide, Total (test 29 mmol/L 20-29 code = 8-9) Calcium (test code = 06898-4) 9.2 mg/dL 8.7-10.2 Protein, Total (test code = 6.2 g/dL 6.0-8.5 2885-2) Albumin (test code = 1751-7) 3.4 g/dL 4.0-5.0 L Globulin, Total (test code = 2.8 g/dL 1.5-4.5 94185-1) A/G Ratio (test code = 1759-0) 1.2 [...] (test 38 mL/min/1.73 >59 L code = 30229-4) eGFR If Africn Am (test code = 44 mL/min/1.73 >59 L 37178-5) BUN/Creatinine Ratio (test 25 9-20 H code = 3097-3) Sodium (test code = 2951-2) 138 mmol/L 134-144 Potassium (test code = 2823-3) 5.4 mmol/L 3.5-5.2 H Chloride (test code = 2075-0) 96 mmol/L 96-106 Carbon Dioxide, Total (test 29 mmol/L 20-29 code = 8-9) Calcium (test code = 95708-1) 9.2 mg/dL 8.7-10.2 Protein, Total (test code = 6.2 g/dL 6.0-8.5 2885-2) Albumin (test code = 1751-7) 3.4 g/dL 4.0-5.0 L Globulin, Total (test code = 2.8 g/dL 1.5-4.5 95694-2) A/G Ratio (test code = 1759-0) 1.2 1.2-2.2 Bilirubin, Total (test code = 0.5 mg/dL 0.0-1.2 1975-2) Alkaline Phosphatase (test 112 IU/L 39-117 code = 6768-6) AST (SGOT) (test code = 21 IU/L 0-40 1920-8) ALT (SGPT) (test code = 31 IU/L 0-44 1742-6) [facility] Description: Comp. Metabolic Panel (14)2020-03-07 06:49:00 Test Item Value Reference Range Interpretation Comments Glucose (test code = 2345-7) 441 mg/dL 65-99 H BUN (test code = 3094-0) 52 mg/dL 6-24 H Creatinine (test code = 2.05 mg/dL 0.76-1.27 H 2160-0) eGFR If NonAfricn Am (test 38 mL/min/1.73 >59 L code = 43021-9) eGFR If Africn Am (test code = 44 mL/min/1.73 >59 L 46390-0) BUN/Creatinine Ratio (test 25 9-20 H code = 3097-3) Sodium (test code = 2951-2) 138 mmol/L 134-144 Potassium (test code = 2823-3) 5.4 mmol/L 3.5-5.2 H Chloride (test code = 2075-0) 96 mmol/L 96-106 Carbon Dioxide, Total (test 29 mmol/L - code = 2027-) Calcium (test code = 78290-7) 9.2 mg/dL 8.7-10.2 Protein, Total (test code = 6.2 g/dL 6.0-8.5 2885-2) Albumin (test code = 1751-7) 3.4 g/dL 4.0-5.0 L Globulin, Total (test code = 2.8 g/dL 1.5-4.5 77539-9) A/G Ratio (test code = 1759-0) 1.2 1.2-2.2 Bilirubin, Total (test code = 0.5 mg/dL 0.0-1.2 1975-2) Alkaline Phosphatase (test 112 IU/L 39-117 code = 6768-6) AST (SGOT) (test code = 21 IU/L 0-40 1920-8) ALT (SGPT) (test code = 31 IU/L 0-44 1742-6) [facility] Description: Comp. Metabolic Panel (14)2020-03-07 06:49:00 Test Item Value Reference Range Interpretation Comments Glucose (test code = 2345-7) 441 mg/dL 65-99 H BUN (test code = 3094-0) 52 mg/dL 6-24 H Creatinine (test code = 2.05 mg/dL 0.76-1.27 H 2160-0) eGFR If NonAfricn Am (test 38 mL/min/1.73 >59 L code = 12868-7) eGFR If Africn Am (test code = 44 mL/min/1.73 >59 L 75318-3) BUN/Creatinine Ratio (test 25 9-20 H code = 3097-3) Sodium (test code = 2951-2) 138 mmol/L 134-144 Potassium (test code = 2823-3) 5.4 mmol/L 3.5-5.2 H Chloride (test code = 2075-0) 96 mmol/L 96-106 Carbon Dioxide, Total (test 29 mmol/L - code = 2027-) Calcium (test code = 33670-9) 9.2 mg/dL 8.7-10.2 Protein, Total (test code = 6.2 g/dL 6.0-8.5 2885-2) Albumin (test code = 1751-7) 3.4 g/dL 4.0-5.0 L Globulin, Total (test code = 2.8 g/dL 1.5-4.5 40309-6) A/G Ratio (test code = 1759-0) 1.2 1.2-2.2 Bilirubin, Total (test code = 0.5 mg/dL 0.0-1.2 1975-2) Alkaline Phosphatase (test 112 IU/L 39-117 code = 6768-6) AST (SGOT) (test code = 21 IU/L 0-40 1920-8) ALT (SGPT) (test code = 31 IU/L 0-44 1742-6) [facility] Description: Comp. Metabolic Panel (142020-03-07 06:49:00 Test Item Value Reference Range Interpretation Comments Glucose (test code = 2345-7) 441 mg/dL 65-99 H BUN (test code = 3094-0) 52 mg/dL 6-24 H Creatinine (test code = 2.05 mg/dL 0.76-1.27 H 2160-0) eGFR If NonAfricn Am (test 38 mL/min/1.73 >59 L code = 76254-3) eGFR If Africn Am (test code = 44 mL/min/1.73 >59 L 27703-2) BUN/Creatinine Ratio (test 25 9-20 H code = 3097-3) Sodium (test code = 2951-2) 138 mmol/L 134-144 Potassium (test code = 2823-3) 5.4 mmol/L 3.5-5.2 H Chloride (test code = 2075-0) 96 mmol/L 96-106 Carbon Dioxide, Total (test 29 mmol/L 20-29 code = 2027-9) Calcium (test code = 90547-2) 9.2 mg/dL 8.7-10.2 Protein, Total (test code = 6.2 g/dL 6.0-8.5 2885-2) Albumin (test code = 1751-7) 3.4 g/dL 4.0-5.0 L Globulin, Total (test code = 2.8 g/dL 1.5-4.5 59599-3) A/G Ratio (test code = 1759-0) 1.2 1.2-2.2 Bilirubin, Total (test code = 0.5 mg/dL 0.0-1.2 1975-2) Alkaline Phosphatase (test 112 IU/L 39-117 code = 6768-6) AST (SGOT) (test code = 21 IU/L 0-40 1920-8) ALT (SGPT) (test code = 31 IU/L 0-44 1742-6) [facility] Description: Comp. Metabolic Panel (2020-03-07 06:49:00 Test Item Value Reference Range Interpretation Comments Glucose (test code = 2345-7) 441 mg/dL 65-99 H BUN (test code = 3094-0) 52 mg/dL 6-24 H Creatinine (test code = 2.05 mg/dL 0.76-1.27 H 2160-0) eGFR If NonAfricn Am (test 38 mL/min/1.73 >59 L code = 88210-6) eGFR If Africn Am (test code = 44 mL/min/1.73 >59 L 10633-2) BUN/Creatinine Ratio (test 25 9-20 H code = 3097-3) Sodium (test code = 2951-2) 138 mmol/L 134-144 Potassium (test code = 2823-3) 5.4 mmol/L 3.5-5.2 H Chloride (test code = 2075-0) 96 mmol/L 96-106 Carbon Dioxide, Total (test 29 mmol/L 20-29 code = 8-9) Calcium (test code = 83095-6) 9.2 mg/dL 8.7-10.2 Protein, Total (test code = 6.2 g/dL 6.0-8.5 2885-2) Albumin (test code = 1751-7) 3.4 g/dL 4.0-5.0 L Globulin, Total (test code = 2.8 g/dL 1.5-4.5 37765-5) A/G Ratio (test code = 1759-0) 1.2 1.2-2.2 Bilirubin, Total (test code = 0.5 mg/dL 0.0-1.2 1974-) Alkaline Phosphatase (test 112 IU/L 39-117 code = 6768-6) AST (SGOT) (test code = 21 IU/L 0-40 1920-8) ALT (SGPT) (test code = 31 IU/L 0-44 1742-6) [facility] Description: Comp. Metabolic Panel (2020-03-07 06:49:00 Test Item Value Reference Range Interpretation Comments Glucose (test code = 2345-7) 441 mg/dL 65-99 H BUN (test code = 3094-0) 52 mg/dL 6-24 H Creatinine (test code = 2.05 mg/dL 0.76-1.27 H 2160-0) eGFR If NonAfricn Am (test 38 mL/min/1.73 >59 L code = 73600-0) eGFR If Africn Am (test code = 44 mL/min/1.73 >59 L 45369-2) BUN/Creatinine Ratio (test 25 9-20 H code = 3097-3) Sodium (test code = 2951-2) 138 mmol/L 134-144 Potassium (test code = 2823-3) 5.4 mmol/L 3.5-5.2 H Chloride (test code = 2075-0) 96 mmol/L 96-106 Carbon Dioxide, Total (test 29 mmol/L 20-29 code = 8-9) Calcium (test code = 37644-5) 9.2 mg/dL 8.7-10.2 Protein, Total (test code = 6.2 g/dL 6.0-8.5 2885-2) Albumin (test code = 1751-7) 3.4 g/dL 4.0-5.0 L Globulin, Total (test code = 2.8 g/dL 1.5-4.5 43728-4) A/G Ratio (test code = 1759-0) 1.2 [...] (test 38 mL/min/1.73 >59 L code = 09158-6) eGFR If Africn Am (test code = 44 mL/min/1.73 >59 L 91601-0) BUN/Creatinine Ratio (test 25 9-20 H code = 3097-3) Sodium (test code = 2951-2) 138 mmol/L 134-144 Potassium (test code = 2823-3) 5.4 mmol/L 3.5-5.2 H Chloride (test code = 2075-0) 96 mmol/L 96-106 Carbon Dioxide, Total (test 29 mmol/L 20-29 code = 8-9) Calcium (test code = 40090-3) 9.2 mg/dL 8.7-10.2 Protein, Total (test code = 6.2 g/dL 6.0-8.5 2885-2) Albumin (test code = 1751-7) 3.4 g/dL 4.0-5.0 L Globulin, Total (test code = 2.8 g/dL 1.5-4.5 88329-8) A/G Ratio (test code = 1759-0) 1.2 [...] (test 38 mL/min/1.73 >59 L code = 39957-2) eGFR If Africn Am (test code = 44 mL/min/1.73 >59 L 03247-5) BUN/Creatinine Ratio (test 25 9-20 H code = 3097-3) Sodium (test code = 2951-2) 138 mmol/L 134-144 Potassium (test code = 2823-3) 5.4 mmol/L 3.5-5.2 H Chloride (test code = 2075-0) 96 mmol/L 96-106 Carbon Dioxide, Total (test 29 mmol/L 20-29 code = 8-9) Calcium (test code = 92946-2) 9.2 mg/dL 8.7-10.2 Protein, Total (test code = 6.2 g/dL 6.0-8.5 2885-2) Albumin (test code = 1751-7) 3.4 g/dL 4.0-5.0 L Globulin, Total (test code = 2.8 g/dL 1.5-4.5 89530-2) A/G Ratio (test code = 1759-0) 1.2 1.2-2.2 Bilirubin, Total (test code = 0.5 mg/dL 0.0-1.2 1975-2) Alkaline Phosphatase (test 112 IU/L 39-117 code = 6768-6) AST (SGOT) (test code = 21 IU/L 0-40 1920-8) ALT (SGPT) (test code = 31 IU/L 0-44 1742-6) [facility] Description: Comp. Metabolic Panel (2020-03-07 06:49:00 Test Item Value Reference Range Interpretation Comments Glucose (test code = 2345-7) 441 mg/dL 65-99 H BUN (test code = 3094-0) 52 mg/dL 6-24 H Creatinine (test code = 2.05 mg/dL 0.76-1.27 H 2160-0) eGFR If NonAfricn Am (test 38 mL/min/1.73 >59 L code = 79302-8) eGFR If Africn Am (test code = 44 mL/min/1.73 >59 L 24999-1) BUN/Creatinine Ratio (test 25 9-20 H code = 3097-3) Sodium (test code = 2951-2) 138 mmol/L 134-144 Potassium (test code = 2823-3) 5.4 mmol/L 3.5-5.2 H Chloride (test code = 2075-0) 96 mmol/L 96-106 Carbon Dioxide, Total (test 29 mmol/L 20-29 code = 2028-9) Calcium (test code = 11813-6) 9.2 mg/dL 8.7-10.2 Protein, Total (test code = 6.2 g/dL 6.0-8.5 2885-2) Albumin (test code = 1751-7) 3.4 g/dL 4.0-5.0 L Globulin, Total (test code = 2.8 g/dL 1.5-4.5 68639-9) A/G Ratio (test code = 1759-0) 1.2 [...] (test 38 mL/min/1.73 >59 L code = 18135-7) eGFR If Africn Am (test code = 44 mL/min/1.73 >59 L 10537-1) BUN/Creatinine Ratio (test 25 9-20 H code = 3097-3) Sodium (test code = 2951-2) 138 mmol/L 134-144 Potassium (test code = 2823-3) 5.4 mmol/L 3.5-5.2 H Chloride (test code = 2075-0) 96 mmol/L 96-106 Carbon Dioxide, Total (test 29 mmol/L 20-29 code = 8-9) Calcium (test code = 65489-5) 9.2 mg/dL 8.7-10.2 Protein, Total (test code = 6.2 g/dL 6.0-8.5 2885-2) Albumin (test code = 1751-7) 3.4 g/dL 4.0-5.0 L Globulin, Total (test code = 2.8 g/dL 1.5-4.5 56505-3) A/G Ratio (test code = 1759-0) 1.2 [...] (test 38 mL/min/1.73 >59 L code = 17167-9) eGFR If Africn Am (test code = 44 mL/min/1.73 >59 L 13524-2) BUN/Creatinine Ratio (test 25 9-20 H code = 3097-3) Sodium (test code = 2951-2) 138 mmol/L 134-144 Potassium (test code = 2823-3) 5.4 mmol/L 3.5-5.2 H Chloride (test code = 2075-0) 96 mmol/L 96-106 Carbon Dioxide, Total (test 29 mmol/L 20-29 code = 2027-9) Calcium (test code = 71851-7) 9.2 mg/dL 8.7-10.2 Protein, Total (test code = 6.2 g/dL 6.0-8.5 2885-2) Albumin (test code = 1751-7) 3.4 g/dL 4.0-5.0 L Globulin, Total (test code = 2.8 g/dL 1.5-4.5 26763-2) A/G Ratio (test code = 1759-0) 1.2 1.2-2.2 Bilirubin, Total (test code = 0.5 mg/dL 0.0-1.2 1975-2) Alkaline Phosphatase (test 112 IU/L 39-117 code = 6768-6) AST (SGOT) (test code = 21 IU/L 0-40 1920-8) ALT (SGPT) (test code = 31 IU/L 0-44 1742-6) [facility][id number] 07:17:11Tyshawn Serra MD 2019 7:47 AMIncision/DrainageDate/Time: 2019 [...] NoneType of anesthesia: NoneGrafts or Implan ts: None[facility]: [facility] A1c/Hemoglobin.total in [id number] 16:33:00 Test Item Value Reference Range Interpretation Comments Hemoglobin A1c (test code 13.0 % 4.8-5.6 H = 4548-4) . Prediabetes: 5. 7 - 6.4 Diabete s: >6.4 Glycemi c control for niall lts with diabetes: <7.0

P erforme d by:
[facility] ([place])

[facility] Description: Hemoglobin A1c/Hemoglobin.total in Blood 2019-11-10 16:33:00 Test Item Value Reference Range Interpretation Comments Hemoglobin A1c (test code 13.0 % 4.8-5.6 H = 4548-4) . Prediabetes: 5. 7 - 6.4 Diabete s: >6.4 Glycemi c control for niall lts with diabetes: <7.0

P erforme d by:
[facility] ([place])

[facility] Description: Hemoglobin A1c/Hemoglobin.total in Blood 2019-11-10 16:33:00 Test Item Value Reference Range Interpretation Comments Hemoglobin A1c (test code 13.0 % 4.8-5.6 H = 4548-4) . Prediabetes: 5. 7 - 6.4 Diabete s: >6.4 Glycemi c control for niall lts with diabetes: <7.0

P erforme d by:
[facility] ([place])

[facility] Description: Hemoglobin A1c/Hemoglobin.total in Blood 2019-11-10 16:33:00 Test Item Value Reference Range Interpretation Comments Hemoglobin A1c (test code 13.0 % 4.8-5.6 H = 4548-4) . Prediabetes: 5. 7 - 6.4 Diabete s: >6.4 Glycemi c control for niall lts with diabetes: <7.0

P erforme d by:
[facility] ([place])

[facility] Description: Hemoglobin A1c/Hemoglobin.total in Blood 2019-11-10 16:33:00 Test Item Value Reference Range Interpretation Comments Hemoglobin A1c (test code 13.0 % 4.8-5.6 H = 4548-4) . Prediabetes: 5. 7 - 6.4 Diabete s: >6.4 Glycemi c control for niall lts with diabetes: <7.0

P erforme d by:
[facility] ([place])

[facility] Description: Hemoglobin A1c/Hemoglobin.total in Blood 2019-11-10 16:33:00 Test Item Value Reference Range Interpretation Comments Hemoglobin A1c (test code 13.0 % 4.8-5.6 H = 4548-4) . Prediabetes: 5. 7 - 6.4 Diabete s: >6.4 Glycemi c control for niall lts with diabetes: <7.0

P erforme d by:
[facility] ([place]

[facility]: Hemoglobin A1c/Hemoglobin.total in Blood 2019-11-10 16:33:00 Test Item Value Reference Range Interpretation Comments Hemoglobin A1c (test code 13.0 % 4.8-5.6 H = 4548-4) . Prediabetes: 5. 7 - 6.4 Diabete s: >6.4 Glycemi c control for niall lts with diabetes: <7.0

P erforme d by:
[facility] ([place]

[facility]: Hemoglobin A1c/Hemoglobin.total in Blood 2019-11-10 16:33:00 Test Item Value Reference Range Interpretation Comments Hemoglobin A1c (test code 13.0 % 4.8-5.6 H = 4548-4) . Prediabetes: 5. 7 - 6.4 Diabete s: >6.4 Glycemi c control for niall lts with diabetes: <7.0

P erforme d by:
[facility] ([place])

[facility] Description: Hemoglobin A1c/Hemoglobin.total in Blood 2019-11-10 16:33:00 Test Item Value Reference Range Interpretation Comments Hemoglobin A1c (test code 13.0 % 4.8-5.6 H = 4548-4) . Prediabetes: 5. 7 - 6.4 Diabete s: >6.4 Glycemi c control for niall lts with diabetes: <7.0

P erforme d by:
[facility] ([place])

[facility] Description: Hemoglobin A1c/Hemoglobin.total in Blood 2019-11-10 16:33:00 Test Item Value Reference Range Interpretation Comments Hemoglobin A1c (test code 13.0 % 4.8-5.6 H = 4548-4) . Prediabetes: 5. 7 - 6.4 Diabete s: >6.4 Glycemi c control for niall lts with diabetes: <7.0

P erforme d by:
[facility] ([place]

[facility]: Hemoglobin A1c/Hemoglobin.total in Blood 2019-11-10 16:33:00 Test Item Value Reference Range Interpretation Comments Hemoglobin A1c (test code 13.0 % 4.8-5.6 H = 4548-4) . Prediabetes: 5. 7 - 6.4 Diabete s: >6.4 Glycemi c control for niall lts with diabetes: <7.0

P erforme d by:
[facility] ([place]

[facility]: Hemoglobin A1c/Hemoglobin.total in Blood 2019-11-10 16:33:00 Test Item Value Reference Range Interpretation Comments Hemoglobin A1c (test code 13.0 % 4.8-5.6 H = 4548-4) . Prediabetes: 5. 7 - 6.4 Diabete s: >6.4 Glycemi c control for niall lts with diabetes: <7.0

P erforme d by:
[facility] ([place])

[facility] Description: Hemoglobin A1c/Hemoglobin.total in Blood 2019-11-10 16:33:00 Test Item Value Reference Range Interpretation Comments Hemoglobin A1c (test code 13.0 % 4.8-5.6 H = 4548-4) . Prediabetes: 5. 7 - 6.4 Diabete s: >6.4 Glycemi c control for niall lts with diabetes: <7.0

P erforme d by:
[facility] ([place])

[facility] Description: Hemoglobin A1c/Hemoglobin.total in Blood 2019-11-10 16:33:00 Test Item Value Reference Range Interpretation Comments Hemoglobin A1c (test code 13.0 % 4.8-5.6 H = 4548-4) . Prediabetes: 5. 7 - 6.4 Diabete s: >6.4 Glycemi c control for niall lts with diabetes: <7.0

P erforme d by:
[facility] ([place]

[facility]: Hemoglobin A1c/Hemoglobin.total in Blood 2019-11-10 16:33:00 Test Item Value Reference Range Interpretation Comments Hemoglobin A1c (test code 13.0 % 4.8-5.6 H = 4548-4) . Prediabetes: 5. 7 - 6.4 Diabete s: >6.4 Glycemi c control for niall lts with diabetes: <7.0

P erforme d by:
[facility] ([place]

[facility]: Hemoglobin A1c/Hemoglobin.total in Blood 2019-11-10 16:33:00 Test Item Value Reference Range Interpretation Comments Hemoglobin A1c (test code 13.0 % 4.8-5.6 H = 4548-4) . Prediabetes: 5. 7 - 6.4 Diabete s: >6.4 Glycemi c control for niall lts with diabetes: <7.0

P erforme d by:
[facility] ([place])

[facility] Description: Hemoglobin A1c/Hemoglobin.total in Blood 2019-11-10 16:33:00 Test Item Value Reference Range Interpretation Comments Hemoglobin A1c (test code 13.0 % 4.8-5.6 H = 4548-4) . Prediabetes: 5. 7 - 6.4 Diabete s: >6.4 Glycemi c control for niall lts with diabetes: <7.0

P erforme d by:
[facility] ([place])

[facility] Description: Hemoglobin A1c/Hemoglobin.total in Blood 2019-11-10 16:33:00 Test Item Value Reference Range Interpretation Comments Hemoglobin A1c (test code 13.0 % 4.8-5.6 H = 4548-4) . Prediabetes: 5. 7 - 6.4 Diabete s: >6.4 Glycemi c control for niall lts with diabetes: <7.0

P erforme d by:
[facility] ([place])

[facility]: Hemoglobin A1c/Hemoglobin.total in Blood 2019-11-10 16:33:00 Test Item Value Reference Range Interpretation Comments Hemoglobin A1c (test code 13.0 % 4.8-5.6 H = 4548-4) . Prediabetes: 5. 7 - 6.4 Diabete s: >6.4 Glycemi c control for niall lts with diabetes: <7.0

P erforme d by:
[facility] ([place])

[facility]: Hemoglobin A1c/Hemoglobin.total in Blood 2019-11-10 16:33:00 Test Item Value Reference Range Interpretation Comments Hemoglobin A1c (test code 13.0 % 4.8-5.6 H = 4548-4) . Prediabetes: 5. 7 - 6.4 Diabete s: >6.4 Glycemi c control for niall lts with diabetes: <7.0

P erforme d by:
[facility] ([place])

[facility] Description: Hemoglobin A1c/Hemoglobin.total in Blood 2019-11-10 16:33:00 Test Item Value Reference Range Interpretation Comments Hemoglobin A1c (test code 13.0 % 4.8-5.6 H = 4548-4) . Prediabetes: 5. 7 - 6.4 Diabete s: >6.4 Glycemi c control for niall lts with diabetes: <7.0

P erforme d by:
[facility] ([place])

[facility] Description: Hemoglobin A1c/Hemoglobin.total in Blood 2019-11-10 16:33:00 Test Item Value Reference Range Interpretation Comments Hemoglobin A1c (test code 13.0 % 4.8-5.6 H = 4548-4) . Prediabetes: 5. 7 - 6.4 Diabete s: >6.4 Glycemi c control for niall lts with diabetes: <7.0

P erforme d by:
[facility] ([place])

[facility]: Hemoglobin A1c/Hemoglobin.total in Blood 2019-11-10 16:33:00 Test Item Value Reference Range Interpretation Comments Hemoglobin A1c (test code 13.0 % 4.8-5.6 H = 4548-4) . Prediabetes: 5. 7 - 6.4 Diabete s: >6.4 Glycemi c control for niall lts with diabetes: <7.0

P erforme d by:
[facility] ([place])

[facility]: Hemoglobin A1c/Hemoglobin.total in Blood 2019-11-10 16:33:00 Test Item Value Reference Range Interpretation Comments Hemoglobin A1c (test code 13.0 % 4.8-5.6 H = 4548-4) . Prediabetes: 5. 7 - 6.4 Diabete s: >6.4 Glycemi c control for niall lts with diabetes: <7.0

P erforme d by:
[facility] ([place])

[facility] Description: Hemoglobin A1c/Hemoglobin.total in Blood 2019-11-10 16:33:00 Test Item Value Reference Range Interpretation Comments Hemoglobin A1c (test code 13.0 % 4.8-5.6 H = 4548-4) . Prediabetes: 5. 7 - 6.4 Diabete s: >6.4 Glycemi c control for niall lts with diabetes: <7.0

P erforme d by:
[facility] ([place])

[facility] Description: Hemoglobin A1c/Hemoglobin.total in Blood 2019-11-10 16:33:00 Test Item Value Reference Range Interpretation Comments Hemoglobin A1c (test code 13.0 % 4.8-5.6 H = 4548-4) . Prediabetes: 5. 7 - 6.4 Diabete s: >6.4 Glycemi c control for niall lts with diabetes: <7.0

P erforme d by:
[facility] ([place])

[facility] Description: Hemoglobin A1c/Hemoglobin.total in Blood 2019-11-10 16:33:00 Test Item Value Reference Range Interpretation Comments Hemoglobin A1c (test code 13.0 % 4.8-5.6 H = 4548-4) . Prediabetes: 5. 7 - 6.4 Diabete s: >6.4 Glycemi c control for niall lts with diabetes: <7.0

P erforme d by:
[facility] ([place])

[facility] Description: Comp. Metabolic Panel (14)2019-11-10 03:19:00 Test Item Value Reference Range Interpretation Comments Glucose (test code = 2345-7) 439 mg/dL 65-99 H BUN (test code = 3094-0) 49 mg/dL 6-24 H Creatinine (test code = 2.17 mg/dL 0.76-1.27 H 2160-0) eGFR If NonAfricn Am (test 35 mL/min/1.73 >59 L code = 75768-9) eGFR If Africn Am (test code = 41 mL/min/1.73 >59 L 66754-3) BUN/Creatinine Ratio (test 23 9-20 H code = 3097-3) Sodium (test code = 2951-2) 137 mmol/L 134-144 Potassium (test code = 2823-3) 4.9 mmol/L 3.5-5.2 Chloride (test code = 2075-0) 93 mmol/L 96-106 L Carbon Dioxide, Total (test 29 mmol/L 20-29 code = 2028-9) Calcium (test code = 59490-3) 9.5 mg/dL 8.7-10.2 Protein, Total (test code = 6.5 g/dL 6.0-8.5 2885-2) Albumin (test code = 1751-7) 3.6 g/dL 4.0-5.0 L Globulin, Total (test code = 2.9 g/dL 1.5-4.5 55483-4) A/G Ratio (test code = 1759-0) 1.2 1.2-2.2 Bilirubin, Total (test code = 0.5 mg/dL 0.0-1.2 1975-2) Alkaline Phosphatase (test 103 IU/L 39-117 code = 6768-6) AST (SGOT) (test code = 20 IU/L 0-40 1920-8) ALT (SGPT) (test code = 30 IU/L 0-44 1742-6) [facility]: Lipid [id number] 03:19:00 Test Item Value Reference Range Interpretation Comments Cholesterol, Total (test code = 231 mg/dL 100-199 H 3-3) Triglycerides (test code = 2571-8) 215 mg/dL 0-149 H HDL Cholesterol (test code = 34 mg/dL >39 L 5-9) VLDL Cholesterol Renuka (test code = 43 mg/dL 5-40 H 61290-5) LDL Cholesterol Calc (test code = 154 mg/dL 0-99 H 33140-6) Comment: (test code = 00642-3) [facility] Description: Comp. Metabolic Panel ()2019-11-10 03:19:00 Test Item Value Reference Range Interpretation Comments Glucose (test code = 2345-7) 439 mg/dL 65-99 H BUN (test code = 3094-0) 49 mg/dL 6-24 H Creatinine (test code = 2.17 mg/dL 0.76-1.27 H 2160-0) eGFR If NonAfricn Am (test 35 mL/min/1.73 >59 L code = 25568-8) eGFR If Africn Am (test code = 41 mL/min/1.73 >59 L 01408-3) BUN/Creatinine Ratio (test 23 9-20 H code = 3097-3) Sodium (test code = 2951-2) 137 mmol/L 134-144 Potassium (test code = 2823-3) 4.9 mmol/L 3.5-5.2 Chloride (test code = 2075-0) 93 mmol/L 96-106 L Carbon Dioxide, Total (test 29 mmol/L 20-29 code = 8-9) Calcium (test code = 07808-4) 9.5 mg/dL 8.7-10.2 Protein, Total (test code = 6.5 g/dL 6.0-8.5 2885-2) Albumin (test code = 1751-7) 3.6 g/dL 4.0-5.0 L Globulin, Total (test code = 2.9 g/dL 1.5-4.5 62185-4) A/G Ratio (test code = 1759-0) 1.2 1.2-2.2 Bilirubin, Total (test code = 0.5 mg/dL 0.0-1.2 1975-2) Alkaline Phosphatase (test 103 IU/L 39-117 code = 6768-6) AST (SGOT) (test code = 20 IU/L 0-40 1920-8) ALT (SGPT) (test code = 30 IU/L 0-44 1742-6) [facility] Description: Lipid [id number] 03:19:00 Test Item Value Reference Range Interpretation Comments Cholesterol, Total (test code = 231 mg/dL 100-199 H 2092-3) Triglycerides (test code = 2571-8) 215 mg/dL 0-149 H HDL Cholesterol (test code = 34 mg/dL >39 L 2084-9) VLDL Cholesterol Renuka (test code = 43 mg/dL 5-40 H 25855-1) LDL Cholesterol Calc (test code = 154 mg/dL 0-99 H 77492-4) Comment: (test code = 16378-2) [facility] Description: Comp. Metabolic Panel (14)2019-11-10 03:19:00 Test Item Value Reference Range Interpretation Comments Glucose (test code = 2345-7) 439 mg/dL 65-99 H BUN (test code = 3094-0) 49 mg/dL 6-24 H Creatinine (test code = 2.17 mg/dL 0.76-1.27 H 2160-0) eGFR If NonAfricn Am (test 35 mL/min/1.73 >59 L code = 45411-4) eGFR If Africn Am (test code = 41 mL/min/1.73 >59 L 93871-7) BUN/Creatinine Ratio (test 23 9-20 H code = 3097-3) Sodium (test code = 2951-2) 137 mmol/L 134-144 Potassium (test code = 2823-3) 4.9 mmol/L 3.5-5.2 Chloride (test code = 2075-0) 93 mmol/L 96-106 L Carbon Dioxide, Total (test 29 mmol/L 20-29 code = 8-9) Calcium (test code = 53376-5) 9.5 mg/dL 8.7-10.2 Protein, Total (test code = 6.5 g/dL 6.0-8.5 2885-2) Albumin (test code = 1751-7) 3.6 g/dL 4.0-5.0 L Globulin, Total (test code = 2.9 g/dL 1.5-4.5 99377-7) A/G Ratio (test code = 1759-0) 1.2 1.2-2.2 Bilirubin, Total (test code = 0.5 mg/dL 0.0-1.2 1975-2) Alkaline Phosphatase (test 103 IU/L 39-117 code = 6768-6) AST (SGOT) (test code = 20 IU/L 0-40 1920-8) ALT (SGPT) (test code = 30 IU/L 0-44 1742-6) [facility] Description: Lipid [id number] 03:19:00 Test Item Value Reference Range Interpretation Comments Cholesterol, Total (test code = 231 mg/dL 100-199 H 3-3) Triglycerides (test code = 2571-8) 215 mg/dL 0-149 H HDL Cholesterol (test code = 34 mg/dL >39 L 2084-9) VLDL Cholesterol Renuka (test code = 43 mg/dL 5-40 H 29797-0) LDL Cholesterol Calc (test code = 154 mg/dL 0-99 H 39971-8) Comment: (test code = 73997-9) [facility]: Comp. Metabolic Panel (14)2019-11-10 03:19:00 Test Item Value Reference Range Interpretation Comments Glucose (test code = 2345-7) 439 mg/dL 65-99 H BUN (test code = 3094-0) 49 mg/dL 6-24 H Creatinine (test code = 2.17 mg/dL 0.76-1.27 H 2160-0) eGFR If NonAfricn Am (test 35 mL/min/1.73 >59 L code = 24894-9) eGFR If Africn Am (test code = 41 mL/min/1.73 >59 L 05228-2) BUN/Creatinine Ratio (test 23 9-20 H code = 3097-3) Sodium (test code = 2951-2) 137 mmol/L 134-144 Potassium (test code = 2823-3) 4.9 mmol/L 3.5-5.2 Chloride (test code = 2075-0) 93 mmol/L 96-106 L Carbon Dioxide, Total (test 29 mmol/L 20-29 code = 2027-9) Calcium (test code = 48795-0) 9.5 mg/dL 8.7-10.2 Protein, Total (test code = 6.5 g/dL 6.0-8.5 2885-2) Albumin (test code = 1751-7) 3.6 g/dL 4.0-5.0 L Globulin, Total (test code = 2.9 g/dL 1.5-4.5 80111-1) A/G Ratio (test code = 1759-0) 1.2 1.2-2.2 Bilirubin, Total (test code = 0.5 mg/dL 0.0-1.2 1975-2) Alkaline Phosphatase (test 103 IU/L 39-117 code = 6768-6) AST (SGOT) (test code = 20 IU/L 0-40 1920-8) ALT (SGPT) (test code = 30 IU/L 0-44 1742-6) [facility]: Lipid [id number] 03:19:00 Test Item Value Reference Range Interpretation Comments Cholesterol, Total (test code = 231 mg/dL 100-199 H 2092-3) Triglycerides (test code = 2571-8) 215 mg/dL 0-149 H HDL Cholesterol (test code = 34 mg/dL >39 L 2084-9) VLDL Cholesterol Renuka (test code = 43 mg/dL 5-40 H 90613-0) LDL Cholesterol Calc (test code = 154 mg/dL 0-99 H 46405-5) Comment: (test code = 85123-4) [facility]: Comp. Metabolic Panel (14)2019-11-10 03:19:00 Test Item Value Reference Range Interpretation Comments Glucose (test code = 2345-7) 439 mg/dL 65-99 H BUN (test code = 3094-0) 49 mg/dL 6-24 H Creatinine (test code = 2.17 mg/dL 0.76-1.27 H 2160-0) eGFR If NonAfricn Am (test 35 mL/min/1.73 >59 L code = 95853-2) eGFR If Africn Am (test code = 41 mL/min/1.73 >59 L 37187-2) BUN/Creatinine Ratio (test 23 9-20 H code = 3097-3) Sodium (test code = 2951-2) 137 mmol/L 134-144 Potassium (test code = 2823-3) 4.9 mmol/L 3.5-5.2 Chloride (test code = 2075-0) 93 mmol/L 96-106 L Carbon Dioxide, Total (test 29 mmol/L 20-29 code = 2027-9) Calcium (test code = 17988-0) 9.5 mg/dL 8.7-10.2 Protein, Total (test code = 6.5 g/dL 6.0-8.5 2885-2) Albumin (test code = 1751-7) 3.6 g/dL 4.0-5.0 L Globulin, Total (test code = 2.9 g/dL 1.5-4.5 09740-5) A/G Ratio (test code = 1759-0) 1.2 1.2-2.2 Bilirubin, Total (test code = 0.5 mg/dL 0.0-1.2 1975-2) Alkaline Phosphatase (test 103 IU/L 39-117 code = 6768-6) AST (SGOT) (test code = 20 IU/L 0-40 1920-8) ALT (SGPT) (test code = 30 IU/L 0-44 1742-6) [facility] Description: Lipid [id number] 03:19:00 Test Item Value Reference Range Interpretation Comments Cholesterol, Total (test code = 231 mg/dL 100-199 H 2093-3) Triglycerides (test code = 2571-8) 215 mg/dL 0-149 H HDL Cholesterol (test code = 34 mg/dL >39 L 2085-9) VLDL Cholesterol Renuka (test code = 43 mg/dL 5-40 H 55357-3) LDL Cholesterol Calc (test code = 154 mg/dL 0-99 H 52412-1) Comment: (test code = 27102-9) [facility] Description: Comp. Metabolic Panel (14)2019-11-10 03:19:00 Test Item Value Reference Range Interpretation Comments Glucose (test code = 2345-7) 439 mg/dL 65-99 H BUN (test code = 3094-0) 49 mg/dL 6-24 H Creatinine (test code = 2.17 mg/dL 0.76-1.27 H 2160-0) eGFR If NonAfricn Am (test 35 mL/min/1.73 >59 L code = 19619-9) eGFR If Africn Am (test code = 41 mL/min/1.73 >59 L 80065-4) BUN/Creatinine Ratio (test 23 9-20 H code = 3097-3) Sodium (test code = 2951-2) 137 mmol/L 134-144 Potassium (test code = 2823-3) 4.9 mmol/L 3.5-5.2 Chloride (test code = 2075-0) 93 mmol/L 96-106 L Carbon Dioxide, Total (test 29 mmol/L 20-29 code = 2028-9) Calcium (test code = 80865-8) 9.5 mg/dL 8.7-10.2 Protein, Total (test code = 6.5 g/dL 6.0-8.5 2885-2) Albumin (test code = 1751-7) 3.6 g/dL 4.0-5.0 L Globulin, Total (test code = 2.9 g/dL 1.5-4.5 56652-1) A/G Ratio (test code = 1759-0) 1.2 1.2-2.2 Bilirubin, Total (test code = 0.5 mg/dL 0.0-1.2 1975-2) Alkaline Phosphatase (test 103 IU/L 39-117 code = 6768-6) AST (SGOT) (test code = 20 IU/L 0-40 1920-8) ALT (SGPT) (test code = 30 IU/L 0-44 1742-6) [facility] Description: Lipid [id number] 03:19:00 Test Item Value Reference Range Interpretation Comments Cholesterol, Total (test code = 231 mg/dL 100-199 H 2093-3) Triglycerides (test code = 2571-8) 215 mg/dL 0-149 H HDL Cholesterol (test code = 34 mg/dL >39 L 5-9) VLDL Cholesterol Renuka (test code = 43 mg/dL 5-40 H 24405-3) LDL Cholesterol Calc (test code = 154 mg/dL 0-99 H 85068-6) Comment: (test code = 22485-4) [facility] Description: Comp. Metabolic Panel (14)2019-11-10 03:19:00 Test Item Value Reference Range Interpretation Comments Glucose (test code = 2345-7) 439 mg/dL 65-99 H BUN (test code = 3094-0) 49 mg/dL 6-24 H Creatinine (test code = 2.17 mg/dL 0.76-1.27 H 2160-0) eGFR If NonAfricn Am (test 35 mL/min/1.73 >59 L code = 48428-5) eGFR If Africn Am (test code = 41 mL/min/1.73 >59 L 61495-6) BUN/Creatinine Ratio (test 23 9-20 H code = 3097-3) Sodium (test code = 2951-2) 137 mmol/L 134-144 Potassium (test code = 2823-3) 4.9 mmol/L 3.5-5.2 Chloride (test code = 2075-0) 93 mmol/L 96-106 L Carbon Dioxide, Total (test 29 mmol/L 20-29 code = 2028-9) Calcium (test code = 87801-4) 9.5 mg/dL 8.7-10.2 Protein, Total (test code = 6.5 g/dL 6.0-8.5 2885-2) Albumin (test code = 1751-7) 3.6 g/dL 4.0-5.0 L Globulin, Total (test code = 2.9 g/dL 1.5-4.5 02680-5) A/G Ratio (test code = 1759-0) 1.2 1.2-2.2 Bilirubin, Total (test code = 0.5 mg/dL 0.0-1.2 1975-2) Alkaline Phosphatase (test 103 IU/L 39-117 code = 6768-6) AST (SGOT) (test code = 20 IU/L 0-40 1920-8) ALT (SGPT) (test code = 30 IU/L 0-44 1742-6) [facility] Description: Lipid [id number] 03:19:00 Test Item Value Reference Range Interpretation Comments Cholesterol, Total (test code = 231 mg/dL 100-199 H 2092-3) Triglycerides (test code = 2571-8) 215 mg/dL 0-149 H HDL Cholesterol (test code = 34 mg/dL >39 L 2084-9) VLDL Cholesterol Renuka (test code = 43 mg/dL 5-40 H 93795-7) LDL Cholesterol Calc (test code = 154 mg/dL 0-99 H 76955-6) Comment: (test code = 11338-2) [facility] Description: Comp. Metabolic Panel ()2019-11-10 03:19:00 Test Item Value Reference Range Interpretation Comments Glucose (test code = 2345-7) 439 mg/dL 65-99 H BUN (test code = 3094-0) 49 mg/dL 6-24 H Creatinine (test code = 2.17 mg/dL 0.76-1.27 H 2160-0) eGFR If NonAfricn Am (test 35 mL/min/1.73 >59 L code = 89817-5) eGFR If Africn Am (test code = 41 mL/min/1.73 >59 L 27358-6) BUN/Creatinine Ratio (test 23 9-20 H code = 3097-3) Sodium (test code = 2951-2) 137 mmol/L 134-144 Potassium (test code = 2823-3) 4.9 mmol/L 3.5-5.2 Chloride (test code = 2075-0) 93 mmol/L 96-106 L Carbon Dioxide, Total (test 29 mmol/L 20-29 code = 8-9) Calcium (test code = 44057-5) 9.5 mg/dL 8.7-10.2 Protein, Total (test code = 6.5 g/dL 6.0-8.5 2885-2) Albumin (test code = 1751-7) 3.6 g/dL 4.0-5.0 L Globulin, Total (test code = 2.9 g/dL 1.5-4.5 57747-1) A/G Ratio (test code = 1759-0) 1.2 1.2-2.2 Bilirubin, Total (test code = 0.5 mg/dL 0.0-1.2 1974-2) Alkaline Phosphatase (test 103 IU/L 39-117 code = 6768-6) AST (SGOT) (test code = 20 IU/L 0-40 1920-8) ALT (SGPT) (test code = 30 IU/L 0-44 2-6) [facility] Description: Lipid [id number] 03:19:00 Test Item Value Reference Range Interpretation Comments Cholesterol, Total (test code = 231 mg/dL 100-199 H 2092-3) Triglycerides (test code = 2571-8) 215 mg/dL 0-149 H HDL Cholesterol (test code = 34 mg/dL >39 L 2084-9) VLDL Cholesterol Renuka (test code = 43 mg/dL 5-40 H 90433-6) LDL Cholesterol Calc (test code = 154 mg/dL 0-99 H 94513-3) Comment: (test code = 42735-0) [facility]: Comp. Metabolic Panel (14)2019-11-10 03:19:00 Test Item Value Reference Range Interpretation Comments Glucose (test code = 2345-7) 439 mg/dL 65-99 H BUN (test code = 3094-0) 49 mg/dL 6-24 H Creatinine (test code = 2.17 mg/dL 0.76-1.27 H 2160-0) eGFR If NonAfricn Am (test 35 mL/min/1.73 >59 L code = 19135-5) eGFR If Africn Am (test code = 41 mL/min/1.73 >59 L 39803-3) BUN/Creatinine Ratio (test 23 9-20 H code = 3097-3) Sodium (test code = 2951-2) 137 mmol/L 134-144 Potassium (test code = 2823-3) 4.9 mmol/L 3.5-5.2 Chloride (test code = 2075-0) 93 mmol/L 96-106 L Carbon Dioxide, Total (test 29 mmol/L 20-29 code = 8-9) Calcium (test code = 36427-1) 9.5 mg/dL 8.7-10.2 Protein, Total (test code = 6.5 g/dL 6.0-8.5 2885-2) Albumin (test code = 1751-7) 3.6 g/dL 4.0-5.0 L Globulin, Total (test code = 2.9 g/dL 1.5-4.5 82316-9) A/G Ratio (test code = 1759-0) 1.2 1.2-2.2 Bilirubin, Total (test code = 0.5 mg/dL 0.0-1.2 1975-2) Alkaline Phosphatase (test 103 IU/L 39-117 code = 6768-6) AST (SGOT) (test code = 20 IU/L 0-40 1920-8) ALT (SGPT) (test code = 30 IU/L 0-44 1742-6) [facility] Description: Lipid [id number] 03:19:00 Test Item Value Reference Range Interpretation Comments Cholesterol, Total (test code = 231 mg/dL 100-199 H 3-3) Triglycerides (test code = 2571-8) 215 mg/dL 0-149 H HDL Cholesterol (test code = 34 mg/dL >39 L 5-9) VLDL Cholesterol Renuka (test code = 43 mg/dL 5-40 H 85462-0) LDL Cholesterol Calc (test code = 154 mg/dL 0-99 H 94754-0) Comment: (test code = 70562-0) [facility] Description: Comp. Metabolic Panel (14)2019-11-10 03:19:00 Test Item Value Reference Range Interpretation Comments Glucose (test code = 2345-7) 439 mg/dL 65-99 H BUN (test code = 3094-0) 49 mg/dL 6-24 H Creatinine (test code = 2.17 mg/dL 0.76-1.27 H 2160-0) eGFR If NonAfricn Am (test 35 mL/min/1.73 >59 L code = 48400-5) eGFR If Africn Am (test code = 41 mL/min/1.73 >59 L 14070-8) BUN/Creatinine Ratio (test 23 9-20 H code = 3097-3) Sodium (test code = 2951-2) 137 mmol/L 134-144 Potassium (test code = 2823-3) 4.9 mmol/L 3.5-5.2 Chloride (test code = 2075-0) 93 mmol/L 96-106 L Carbon Dioxide, Total (test 29 mmol/L 20-29 code = 8-9) Calcium (test code = 37925-8) 9.5 mg/dL 8.7-10.2 Protein, Total (test code = 6.5 g/dL 6.0-8.5 2885-2) Albumin (test code = 1751-7) 3.6 g/dL 4.0-5.0 L Globulin, Total (test code = 2.9 g/dL 1.5-4.5 47550-2) A/G Ratio (test code = 1759-0) 1.2 1.2-2.2 Bilirubin, Total (test code = 0.5 mg/dL 0.0-1.2 1975-2) Alkaline Phosphatase (test 103 IU/L 39-117 code = 6768-6) AST (SGOT) (test code = 20 IU/L 0-40 1920-8) ALT (SGPT) (test code = 30 IU/L 0-44 1742-6) [facility] Description: Lipid [id number] 03:19:00 Test Item Value Reference Range Interpretation Comments Cholesterol, Total (test code = 231 mg/dL 100-199 H 2093-3) Triglycerides (test code = 2571-8) 215 mg/dL 0-149 H HDL Cholesterol (test code = 34 mg/dL >39 L 2085-9) VLDL Cholesterol Renuka (test code = 43 mg/dL 5-40 H 62440-9) LDL Cholesterol Calc (test code = 154 mg/dL 0-99 H 00669-5) Comment: (test code = 27283-4) [facility] Description: Comp. Metabolic Panel (14)2019-11-10 03:19:00 Test Item Value Reference Range Interpretation Comments Glucose (test code = 2345-7) 439 mg/dL 65-99 H BUN (test code = 3094-0) 49 mg/dL 6-24 H Creatinine (test code = 2.17 mg/dL 0.76-1.27 H 2160-0) eGFR If NonAfricn Am (test 35 mL/min/1.73 >59 L code = 69156-0) eGFR If Africn Am (test code = 41 mL/min/1.73 >59 L 37473-2) BUN/Creatinine Ratio (test 23 9-20 H code = 3097-3) Sodium (test code = 2951-2) 137 mmol/L 134-144 Potassium (test code = 2823-3) 4.9 mmol/L 3.5-5.2 Chloride (test code = 2075-0) 93 mmol/L 96-106 L Carbon Dioxide, Total (test 29 mmol/L 20-29 code = 8-9) Calcium (test code = 80379-5) 9.5 mg/dL 8.7-10.2 Protein, Total (test code = 6.5 g/dL 6.0-8.5 2885-2) Albumin (test code = 1751-7) 3.6 g/dL 4.0-5.0 L Globulin, Total (test code = 2.9 g/dL 1.5-4.5 94958-1) A/G Ratio (test code = 1759-0) 1.2 1.2-2.2 Bilirubin, Total (test code = 0.5 mg/dL 0.0-1.2 1974-2) Alkaline Phosphatase (test 103 IU/L 39-117 code = 6768-6) AST (SGOT) (test code = 20 IU/L 0-40 1920-8) ALT (SGPT) (test code = 30 IU/L 0-44 1742-6) [facility] Description: Lipid [id number] 03:19:00 Test Item Value Reference Range Interpretation Comments Cholesterol, Total (test code = 231 mg/dL 100-199 H 2093-3) Triglycerides (test code = 2571-8) 215 mg/dL 0-149 H HDL Cholesterol (test code = 34 mg/dL >39 L 2084-9) VLDL Cholesterol Renuka (test code = 43 mg/dL 5-40 H 39490-7) LDL Cholesterol Calc (test code = 154 mg/dL 0-99 H 16373-4) Comment: (test code = 09631-8) [facility] Description: Comp. Metabolic Panel ()2019-11-10 03:19:00 Test Item Value Reference Range Interpretation Comments Glucose (test code = 2345-7) 439 mg/dL 65-99 H BUN (test code = 3094-0) 49 mg/dL 6-24 H Creatinine (test code = 2.17 mg/dL 0.76-1.27 H 2160-0) eGFR If NonAfricn Am (test 35 mL/min/1.73 >59 L code = 25577-6) eGFR If Africn Am (test code = 41 mL/min/1.73 >59 L 22337-2) BUN/Creatinine Ratio (test 23 9-20 H code = 3097-3) Sodium (test code = 2951-2) 137 mmol/L 134-144 Potassium (test code = 2823-3) 4.9 mmol/L 3.5-5.2 Chloride (test code = 2075-0) 93 mmol/L 96-106 L Carbon Dioxide, Total (test 29 mmol/L 20-29 code = 8-9) Calcium (test code = 79327-3) 9.5 mg/dL 8.7-10.2 Protein, Total (test code = 6.5 g/dL 6.0-8.5 2885-2) Albumin (test code = 1751-7) 3.6 g/dL 4.0-5.0 L Globulin, Total (test code = 2.9 g/dL 1.5-4.5 62206-6) A/G Ratio (test code = 1759-0) 1.2 1.2-2.2 Bilirubin, Total (test code = 0.5 mg/dL 0.0-1.2 1975-2) Alkaline Phosphatase (test 103 IU/L 39-117 code = 6768-6) AST (SGOT) (test code = 20 IU/L 0-40 1920-8) ALT (SGPT) (test code = 30 IU/L 0-44 1742-6) [facility] Description: Lipid [id number] 03:19:00 Test Item Value Reference Range Interpretation Comments Cholesterol, Total (test code = 231 mg/dL 100-199 H 2092-3) Triglycerides (test code = 2571-8) 215 mg/dL 0-149 H HDL Cholesterol (test code = 34 mg/dL >39 L 5-9) VLDL Cholesterol Renuka (test code = 43 mg/dL 5-40 H 02748-2) LDL Cholesterol Calc (test code = 154 mg/dL 0-99 H 52246-8) Comment: (test code = 01886-8) [facility] Comp. Metabolic Panel (14)2019-11-10 03:19:00 Test Item Value Reference Range Interpretation Comments Glucose (test code = 2345-7) 439 mg/dL 65-99 H BUN (test code = 3094-0) 49 mg/dL 6-24 H Creatinine (test code = 2.17 mg/dL 0.76-1.27 H 2160-0) eGFR If NonAfricn Am (test 35 mL/min/1.73 >59 L code = 80320-3) eGFR If Africn Am (test code = 41 mL/min/1.73 >59 L 18773-4) BUN/Creatinine Ratio (test 23 9-20 H code = 3097-3) Sodium (test code = 2951-2) 137 mmol/L 134-144 Potassium (test code = 2823-3) 4.9 mmol/L 3.5-5.2 Chloride (test code = 2075-0) 93 mmol/L 96-106 L Carbon Dioxide, Total (test 29 mmol/L 20-29 code = 2027-9) Calcium (test code = 15214-3) 9.5 mg/dL 8.7-10.2 Protein, Total (test code = 6.5 g/dL 6.0-8.5 2885-2) Albumin (test code = 1751-7) 3.6 g/dL 4.0-5.0 L Globulin, Total (test code = 2.9 g/dL 1.5-4.5 61402-0) A/G Ratio (test code = 1759-0) 1.2 1.2-2.2 Bilirubin, Total (test code = 0.5 mg/dL 0.0-1.2 1975-2) Alkaline Phosphatase (test 103 IU/L 39-117 code = 6768-6) AST (SGOT) (test code = 20 IU/L 0-40 1920-8) ALT (SGPT) (test code = 30 IU/L 0-44 1742-6) [facility] Description: Lipid [id number] 03:19:00 Test Item Value Reference Range Interpretation Comments Cholesterol, Total (test code = 231 mg/dL 100-199 H 3-3) Triglycerides (test code = 2571-8) 215 mg/dL 0-149 H HDL Cholesterol (test code = 34 mg/dL >39 L 2084-9) VLDL Cholesterol Renuka (test code = 43 mg/dL 5-40 H 19833-7) LDL Cholesterol Calc (test code = 154 mg/dL 0-99 H 99936-1) Comment: (test code = 61229-4) [facility] Description: Comp. Metabolic Panel (14)2019-11-10 03:19:00 Test Item Value Reference Range Interpretation Comments Glucose (test code = 2345-7) 439 mg/dL 65-99 H BUN (test code = 3094-0) 49 mg/dL 6-24 H Creatinine (test code = 2.17 mg/dL 0.76-1.27 H 2160-0) eGFR If NonAfricn Am (test 35 mL/min/1.73 >59 L code = 31136-8) eGFR If Africn Am (test code = 41 mL/min/1.73 >59 L 80669-7) BUN/Creatinine Ratio (test 23 9-20 H code = 3097-3) Sodium (test code = 2951-2) 137 mmol/L 134-144 Potassium (test code = 2823-3) 4.9 mmol/L 3.5-5.2 Chloride (test code = 2075-0) 93 mmol/L 96-106 L Carbon Dioxide, Total (test 29 mmol/L 20-29 code = 2028-9) Calcium (test code = 14934-4) 9.5 mg/dL 8.7-10.2 Protein, Total (test code = 6.5 g/dL 6.0-8.5 2885-2) Albumin (test code = 1751-7) 3.6 g/dL 4.0-5.0 L Globulin, Total (test code = 2.9 g/dL 1.5-4.5 47057-4) A/G Ratio (test code = 1759-0) 1.2 1.2-2.2 Bilirubin, Total (test code = 0.5 mg/dL 0.0-1.2 1975-2) Alkaline Phosphatase (test 103 IU/L 39-117 code = 6768-6) AST (SGOT) (test code = 20 IU/L 0-40 1920-8) ALT (SGPT) (test code = 30 IU/L 0-44 1742-6) [facility] [facility] Description: Lipid [id number] 03:19:00 Test Item Value Reference Range Interpretation Comments Cholesterol, Total (test code = 231 mg/dL 100-199 H 3-3) Triglycerides (test code = 2571-8) 215 mg/dL 0-149 H HDL Cholesterol (test code = 34 mg/dL >39 L 5-9) VLDL Cholesterol Renuka (test code = 43 mg/dL 5-40 H 26324-1) LDL Cholesterol Calc (test code = 154 mg/dL 0-99 H 21412-5) Comment: (test code = 69959-2) [facility] Description: Comp. Metabolic Panel (2019-11-10 03:19:00 Test Item Value Reference Range Interpretation Comments Glucose (test code = 2345-7) 439 mg/dL 65-99 H BUN (test code = 3094-0) 49 mg/dL 6-24 H Creatinine (test code = 2.17 mg/dL 0.76-1.27 H 2160-0) eGFR If NonAfricn Am (test 35 mL/min/1.73 >59 L code = 68946-3) eGFR If Africn Am (test code = 41 mL/min/1.73 >59 L 40918-3) BUN/Creatinine Ratio (test 23 9-20 H code = 3097-3) Sodium (test code = 2951-2) 137 mmol/L 134-144 Potassium (test code = 2823-3) 4.9 mmol/L 3.5-5.2 Chloride (test code = 2075-0) 93 mmol/L 96-106 L Carbon Dioxide, Total (test 29 mmol/L 20-29 code = 8-9) Calcium (test code = 21995-4) 9.5 mg/dL 8.7-10.2 Protein, Total (test code = 6.5 g/dL 6.0-8.5 2885-2) Albumin (test code = 1751-7) 3.6 g/dL 4.0-5.0 L Globulin, Total (test code = 2.9 g/dL 1.5-4.5 31512-0) A/G Ratio (test code = 1759-0) 1.2 1.2-2.2 Bilirubin, Total (test code = 0.5 mg/dL 0.0-1.2 1975-2) Alkaline Phosphatase (test 103 IU/L 39-117 code = 6768-6) AST (SGOT) (test code = 20 IU/L 0-40 1920-8) ALT (SGPT) (test code = 30 IU/L 0-44 1742-6) [facility] Description: Lipid [id number] 03:19:00 Test Item Value Reference Range Interpretation Comments Cholesterol, Total (test code = 231 mg/dL 100-199 H 2092-3) Triglycerides (test code = 2571-8) 215 mg/dL 0-149 H HDL Cholesterol (test code = 34 mg/dL >39 L 2084-9) VLDL Cholesterol Renuka (test code = 43 mg/dL 5-40 H 69721-2) LDL Cholesterol Calc (test code = 154 mg/dL 0-99 H 80059-2) Comment: (test code = 47331-9) [facility] (14)2019-11-10 03:19:00 Test Item Value Reference Range Interpretation Comments Glucose (test code = 2345-7) 439 mg/dL 65-99 H BUN (test code = 3094-0) 49 mg/dL 6-24 H Creatinine (test code = 2.17 mg/dL 0.76-1.27 H 2160-0) eGFR If NonAfricn Am (test 35 mL/min/1.73 >59 L code = 23004-3) eGFR If Africn Am (test code = 41 mL/min/1.73 >59 L 82798-2) BUN/Creatinine Ratio (test 23 9-20 H code = 3097-3) Sodium (test code = 2951-2) 137 mmol/L 134-144 Potassium (test code = 2823-3) 4.9 mmol/L 3.5-5.2 Chloride (test code = 2075-0) 93 mmol/L 96-106 L Carbon Dioxide, Total (test 29 mmol/L 20-29 code = 8-9) Calcium (test code = 42121-1) 9.5 mg/dL 8.7-10.2 Protein, Total (test code = 6.5 g/dL 6.0-8.5 2885-2) Albumin (test code = 1751-7) 3.6 g/dL 4.0-5.0 L Globulin, Total (test code = 2.9 g/dL 1.5-4.5 81137-1) A/G Ratio (test code = 1759-0) 1.2 1.2-2.2 Bilirubin, Total (test code = 0.5 mg/dL 0.0-1.2 1975-2) Alkaline Phosphatase (test 103 IU/L 39-117 code = 6768-6) AST (SGOT) (test code = 20 IU/L 0-40 1920-8) ALT (SGPT) (test code = 30 IU/L 0-44 1742-6) [facility] Description: Lipid [id number] 03:19:00 Test Item Value Reference Range Interpretation Comments Cholesterol, Total (test code = 231 mg/dL 100-199 H 2092-3) Triglycerides (test code = 2571-8) 215 mg/dL 0-149 H HDL Cholesterol (test code = 34 mg/dL >39 L 2084-9) VLDL Cholesterol Renuka (test code = 43 mg/dL 5-40 H 46246-8) LDL Cholesterol Calc (test code = 154 mg/dL 0-99 H 82533-6) Comment: (test code = 01081-5) [facility] Description: Comp. Metabolic Panel (14)2019-11-10 03:19:00 Test Item Value Reference Range Interpretation Comments Glucose (test code = 2345-7) 439 mg/dL 65-99 H BUN (test code = 3094-0) 49 mg/dL 6-24 H Creatinine (test code = 2.17 mg/dL 0.76-1.27 H 2160-0) eGFR If NonAfricn Am (test 35 mL/min/1.73 >59 L code = 66353-0) eGFR If Africn Am (test code = 41 mL/min/1.73 >59 L 01489-0) BUN/Creatinine Ratio (test 23 9-20 H code = 3097-3) Sodium (test code = 2951-2) 137 mmol/L 134-144 Potassium (test code = 2823-3) 4.9 mmol/L 3.5-5.2 Chloride (test code = 2075-0) 93 mmol/L 96-106 L Carbon Dioxide, Total (test 29 mmol/L 20-29 code = 2027-9) Calcium (test code = 11266-5) 9.5 mg/dL 8.7-10.2 Protein, Total (test code = 6.5 g/dL 6.0-8.5 2885-2) Albumin (test code = 1751-7) 3.6 g/dL 4.0-5.0 L Globulin, Total (test code = 2.9 g/dL 1.5-4.5 18656-2) A/G Ratio (test code = 1759-0) 1.2 1.2-2.2 Bilirubin, Total (test code = 0.5 mg/dL 0.0-1.2 1974-2) Alkaline Phosphatase (test 103 IU/L 39-117 code = 6768-6) AST (SGOT) (test code = 20 IU/L 0-40 1920-8) ALT (SGPT) (test code = 30 IU/L 0-44 1742-6) [facility]: Lipid [id number] 03:19:00 Test Item Value Reference Range Interpretation Comments Cholesterol, Total (test code = 231 mg/dL 100-199 H 2092-3) Triglycerides (test code = 2571-8) 215 mg/dL 0-149 H HDL Cholesterol (test code = 34 mg/dL >39 L 2084-9) VLDL Cholesterol Renuka (test code = 43 mg/dL 5-40 H 52989-2) LDL Cholesterol Calc (test code = 154 mg/dL 0-99 H 52225-8) Comment: (test code = 86130-2) [facility]: Comp. Metabolic Panel (14)2019-11-10 03:19:00 Test Item Value Reference Range Interpretation Comments Glucose (test code = 2345-7) 439 mg/dL 65-99 H BUN (test code = 3094-0) 49 mg/dL 6-24 H Creatinine (test code = 2.17 mg/dL 0.76-1.27 H 2160-0) eGFR If NonAfricn Am (test 35 mL/min/1.73 >59 L code = 75703-9) eGFR If Africn Am (test code = 41 mL/min/1.73 >59 L 25154-0) BUN/Creatinine Ratio (test 23 9-20 H code = 3097-3) Sodium (test code = 2951-2) 137 mmol/L 134-144 Potassium (test code = 2823-3) 4.9 mmol/L 3.5-5.2 Chloride (test code = 2075-0) 93 mmol/L 96-106 L Carbon Dioxide, Total (test 29 mmol/L 20-29 code = 2027-9) Calcium (test code = 31170-6) 9.5 mg/dL 8.7-10.2 Protein, Total (test code = 6.5 g/dL 6.0-8.5 2885-2) Albumin (test code = 1751-7) 3.6 g/dL 4.0-5.0 L Globulin, Total (test code = 2.9 g/dL 1.5-4.5 26412-8) A/G Ratio (test code = 1759-0) 1.2 1.2-2.2 Bilirubin, Total (test code = 0.5 mg/dL 0.0-1.2 1975-2) Alkaline Phosphatase (test 103 IU/L 39-117 code = 6768-6) AST (SGOT) (test code = 20 IU/L 0-40 1920-8) ALT (SGPT) (test code = 30 IU/L 0-44 1742-6) [facility] Description: Lipid [id number] 03:19:00 Test Item Value Reference Range Interpretation Comments Cholesterol, Total (test code = 231 mg/dL 100-199 H 2093-3) Triglycerides (test code = 2571-8) 215 mg/dL 0-149 H HDL Cholesterol (test code = 34 mg/dL >39 L 5-9) VLDL Cholesterol Renuka (test code = 43 mg/dL 5-40 H 62604-8) LDL Cholesterol Calc (test code = 154 mg/dL 0-99 H 38283-0) Comment: (test code = 47068-6) [facility] Description: Comp. Metabolic Panel ()2019-11-10 03:19:00 Test Item Value Reference Range Interpretation Comments Glucose (test code = 2345-7) 439 mg/dL 65-99 H BUN (test code = 3094-0) 49 mg/dL 6-24 H Creatinine (test code = 2.17 mg/dL 0.76-1.27 H 2160-0) eGFR If NonAfricn Am (test 35 mL/min/1.73 >59 L code = 97140-3) eGFR If Africn Am (test code = 41 mL/min/1.73 >59 L 84036-9) BUN/Creatinine Ratio (test 23 9-20 H code = 3097-3) Sodium (test code = 2951-2) 137 mmol/L 134-144 Potassium (test code = 2823-3) 4.9 mmol/L 3.5-5.2 Chloride (test code = 2075-0) 93 mmol/L 96-106 L Carbon Dioxide, Total (test 29 mmol/L 20-29 code = 2028-9) Calcium (test code = 98382-3) 9.5 mg/dL 8.7-10.2 Protein, Total (test code = 6.5 g/dL 6.0-8.5 2885-2) Albumin (test code = 1751-7) 3.6 g/dL 4.0-5.0 L Globulin, Total (test code = 2.9 g/dL 1.5-4.5 06518-4) A/G Ratio (test code = 1759-0) 1.2 1.2-2.2 Bilirubin, Total (test code = 0.5 mg/dL 0.0-1.2 1975-2) Alkaline Phosphatase (test 103 IU/L 39-117 code = 6768-6) AST (SGOT) (test code = 20 IU/L 0-40 1920-8) ALT (SGPT) (test code = 30 IU/L 0-44 1742-6) [facility] Description: Lipid [id number] 03:19:00 Test Item Value Reference Range Interpretation Comments Cholesterol, Total (test code = 231 mg/dL 100-199 H 2093-3) Triglycerides (test code = 2571-8) 215 mg/dL 0-149 H HDL Cholesterol (test code = 34 mg/dL >39 L 5-9) VLDL Cholesterol Renuka (test code = 43 mg/dL 5-40 H 23704-0) LDL Cholesterol Calc (test code = 154 mg/dL 0-99 H 30848-0) Comment: (test code = 57521-9) [facility] Description: Comp. Metabolic Panel (14)2019-11-10 03:19:00 Test Item Value Reference Range Interpretation Comments Glucose (test code = 2345-7) 439 mg/dL 65-99 H BUN (test code = 3094-0) 49 mg/dL 6-24 H Creatinine (test code = 2.17 mg/dL 0.76-1.27 H 2160-0) eGFR If NonAfricn Am (test 35 mL/min/1.73 >59 L code = 62890-3) eGFR If Africn Am (test code = 41 mL/min/1.73 >59 L 34036-2) BUN/Creatinine Ratio (test 23 9-20 H code = 3097-3) Sodium (test code = 2951-2) 137 mmol/L 134-144 Potassium (test code = 2823-3) 4.9 mmol/L 3.5-5.2 Chloride (test code = 2075-0) 93 mmol/L 96-106 L Carbon Dioxide, Total (test 29 mmol/L 20-29 code = 2028-9) Calcium (test code = 44541-4) 9.5 mg/dL 8.7-10.2 Protein, Total (test code = 6.5 g/dL 6.0-8.5 2885-2) Albumin (test code = 1751-7) 3.6 g/dL 4.0-5.0 L Globulin, Total (test code = 2.9 g/dL 1.5-4.5 64337-4) A/G Ratio (test code = 1759-0) 1.2 1.2-2.2 Bilirubin, Total (test code = 0.5 mg/dL 0.0-1.2 1975-2) Alkaline Phosphatase (test 103 IU/L 39-117 code = 6768-6) AST (SGOT) (test code = 20 IU/L 0-40 1920-8) ALT (SGPT) (test code = 30 IU/L 0-44 1742-6) [facility] Description: Comp. Metabolic Panel (14)2019-11-10 03:19:00 Test Item Value Reference Range Interpretation Comments Glucose (test code = 2345-7) 439 mg/dL 65-99 H BUN (test code = 3094-0) 49 mg/dL 6-24 H Creatinine (test code = 2.17 mg/dL 0.76-1.27 H 2160-0) eGFR If NonAfricn Am (test 35 mL/min/1.73 >59 L code = 38242-3) eGFR If Africn Am (test code = 41 mL/min/1.73 >59 L 30675-9) BUN/Creatinine Ratio (test 23 9-20 H code = 3097-3) Sodium (test code = 2951-2) 137 mmol/L 134-144 Potassium (test code = 2823-3) 4.9 mmol/L 3.5-5.2 Chloride (test code = 5-0) 93 mmol/L 96-106 L Carbon Dioxide, Total (test 29 mmol/L 20-29 code = 8-9) Calcium (test code = 27684-2) 9.5 mg/dL 8.7-10.2 Protein, Total (test code = 6.5 g/dL 6.0-8.5 2885-2) Albumin (test code = 1751-7) 3.6 g/dL 4.0-5.0 L Globulin, Total (test code = 2.9 g/dL 1.5-4.5 20767-7) A/G Ratio (test code = 1759-0) 1.2 1.2-2.2 Bilirubin, Total (test code = 0.5 mg/dL 0.0-1.2 1974-2) Alkaline Phosphatase (test 103 IU/L 39-117 code = 6768-6) AST (SGOT) (test code = 20 IU/L 0-40 1920-8) ALT (SGPT) (test code = 30 IU/L 0-44 1742-6) [facility]: Lipid [id number] 03:19:00 Test Item Value Reference Range Interpretation Comments Cholesterol, Total (test code = 231 mg/dL 100-199 H 3-3) Triglycerides (test code = 2571-8) 215 mg/dL 0-149 H HDL Cholesterol (test code = 34 mg/dL >39 L 2084-9) VLDL Cholesterol Renuka (test code = 43 mg/dL 5-40 H 39550-3) LDL Cholesterol Calc (test code = 154 mg/dL 0-99 H 17441-8) Comment: (test code = 02136-6) [facility] Description: Lipid [id number] 03:19:00 Test Item Value Reference Range Interpretation Comments Cholesterol, Total (test code = 231 mg/dL 100-199 H 3-3) Triglycerides (test code = 2571-8) 215 mg/dL 0-149 H HDL Cholesterol (test code = 34 mg/dL >39 L 2084-9) VLDL Cholesterol Renuka (test code = 43 mg/dL 5-40 H 18412-7) LDL Cholesterol Calc (test code = 154 mg/dL 0-99 H 54110-5) Comment: (test code = 11084-9) [facility]: Comp. Metabolic Panel (142019-11-10 03:19:00 Test Item Value Reference Range Interpretation Comments Glucose (test code = 2345-7) 439 mg/dL 65-99 H BUN (test code = 3094-0) 49 mg/dL 6-24 H Creatinine (test code = 2.17 mg/dL 0.76-1.27 H 2160-0) eGFR If NonAfricn Am (test 35 mL/min/1.73 >59 L code = 25826-5) eGFR If Africn Am (test code = 41 mL/min/1.73 >59 L 66740-4) BUN/Creatinine Ratio (test 23 9-20 H code = 3097-3) Sodium (test code = 2951-2) 137 mmol/L 134-144 Potassium (test code = 2823-3) 4.9 mmol/L 3.5-5.2 Chloride (test code = 2075-0) 93 mmol/L 96-106 L Carbon Dioxide, Total (test 29 mmol/L 20-29 code = 8-9) Calcium (test code = 48687-8) 9.5 mg/dL 8.7-10.2 Protein, Total (test code = 6.5 g/dL 6.0-8.5 2885-2) Albumin (test code = 1751-7) 3.6 g/dL 4.0-5.0 L Globulin, Total (test code = 2.9 g/dL 1.5-4.5 43462-7) A/G Ratio (test code = 1759-0) 1.2 1.2-2.2 Bilirubin, Total (test code = 0.5 mg/dL 0.0-1.2 1975-2) Alkaline Phosphatase (test 103 IU/L 39-117 code = 6768-6) AST (SGOT) (test code = 20 IU/L 0-40 1920-8) ALT (SGPT) (test code = 30 IU/L 0-44 1742-6) [facility] Description: Lipid [id number] 03:19:00 Test Item Value Reference Range Interpretation Comments Cholesterol, Total (test code = 231 mg/dL 100-199 H 2093-3) Triglycerides (test code = 2571-8) 215 mg/dL 0-149 H HDL Cholesterol (test code = 34 mg/dL >39 L 2084-9) VLDL Cholesterol Renuka (test code = 43 mg/dL 5-40 H 30064-2) LDL Cholesterol Calc (test code = 154 mg/dL 0-99 H 36377-1) Comment: (test code = 30469-8) [facility] Description: Comp. Metabolic Panel ()2019-11-10 03:19:00 Test Item Value Reference Range Interpretation Comments Glucose (test code = 2345-7) 439 mg/dL 65-99 H BUN (test code = 3094-0) 49 mg/dL 6-24 H Creatinine (test code = 2.17 mg/dL 0.76-1.27 H 2160-0) eGFR If NonAfricn Am (test 35 mL/min/1.73 >59 L code = 12127-7) eGFR If Africn Am (test code = 41 mL/min/1.73 >59 L 59879-3) BUN/Creatinine Ratio (test 23 9-20 H code = 3097-3) Sodium (test code = 2951-2) 137 mmol/L 134-144 Potassium (test code = 2823-3) 4.9 mmol/L 3.5-5.2 Chloride (test code = 2075-0) 93 mmol/L 96-106 L Carbon Dioxide, Total (test 29 mmol/L 20-29 code = 2027-9) Calcium (test code = 18098-3) 9.5 mg/dL 8.7-10.2 Protein, Total (test code = 6.5 g/dL 6.0-8.5 2885-2) Albumin (test code = 1751-7) 3.6 g/dL 4.0-5.0 L Globulin, Total (test code = 2.9 g/dL 1.5-4.5 25786-2) A/G Ratio (test code = 1759-0) 1.2 1.2-2.2 Bilirubin, Total (test code = 0.5 mg/dL 0.0-1.2 1974-2) Alkaline Phosphatase (test 103 IU/L 39-117 code = 6768-6) AST (SGOT) (test code = 20 IU/L 0-40 1920-8) ALT (SGPT) (test code = 30 IU/L 0-44 1742-6) [facility] Description: Lipid [id number] 03:19:00 Test Item Value Reference Range Interpretation Comments Cholesterol, Total (test code = 231 mg/dL 100-199 H 2093-3) Triglycerides (test code = 2571-8) 215 mg/dL 0-149 H HDL Cholesterol (test code = 34 mg/dL >39 L 2085-9) VLDL Cholesterol Renuka (test code = 43 mg/dL 5-40 H 91521-7) LDL Cholesterol Calc (test code = 154 mg/dL 0-99 H 12261-0) Comment: (test code = 00922-6) [facility] Description: Comp. Metabolic Panel (14)2019-11-10 03:19:00 Test Item Value Reference Range Interpretation Comments Glucose (test code = 2345-7) 439 mg/dL 65-99 H BUN (test code = 3094-0) 49 mg/dL 6-24 H Creatinine (test code = 2.17 mg/dL 0.76-1.27 H 2160-0) eGFR If NonAfricn Am (test 35 mL/min/1.73 >59 L code = 68705-3) eGFR If Africn Am (test code = 41 mL/min/1.73 >59 L 33525-2) BUN/Creatinine Ratio (test 23 9-20 H code = 3097-3) Sodium (test code = 2951-2) 137 mmol/L 134-144 Potassium (test code = 2823-3) 4.9 mmol/L 3.5-5.2 Chloride (test code = 2075-0) 93 mmol/L 96-106 L Carbon Dioxide, Total (test 29 mmol/L 20-29 code = 8-9) Calcium (test code = 10016-2) 9.5 mg/dL 8.7-10.2 Protein, Total (test code = 6.5 g/dL 6.0-8.5 2885-2) Albumin (test code = 1751-7) 3.6 g/dL 4.0-5.0 L Globulin, Total (test code = 2.9 g/dL 1.5-4.5 26199-4) A/G Ratio (test code = 1759-0) 1.2 1.2-2.2 Bilirubin, Total (test code = 0.5 mg/dL 0.0-1.2 1974-2) Alkaline Phosphatase (test 103 IU/L 39-117 code = 6768-6) AST (SGOT) (test code = 20 IU/L 0-40 1920-8) ALT (SGPT) (test code = 30 IU/L 0-44 1742-6) [facility] Description: Lipid [id number] 03:19:00 Test Item Value Reference Range Interpretation Comments Cholesterol, Total (test code = 231 mg/dL 100-199 H 2093-3) Triglycerides (test code = 2571-8) 215 mg/dL 0-149 H HDL Cholesterol (test code = 34 mg/dL >39 L 2084-9) VLDL Cholesterol Renuka (test code = 43 mg/dL 5-40 H 24698-4) LDL Cholesterol Calc (test code = 154 mg/dL 0-99 H 18201-7) Comment: (test code = 40833-3) [facility] Description: Comp. Metabolic Panel (14)2019-11-10 03:19:00 Test Item Value Reference Range Interpretation Comments Glucose (test code = 2345-7) 439 mg/dL 65-99 H BUN (test code = 3094-0) 49 mg/dL 6-24 H Creatinine (test code = 2.17 mg/dL 0.76-1.27 H 2160-0) eGFR If NonAfricn Am (test 35 mL/min/1.73 >59 L code = 57312-1) eGFR If Africn Am (test code = 41 mL/min/1.73 >59 L 05475-8) BUN/Creatinine Ratio (test 23 9-20 H code = 3097-3) Sodium (test code = 2951-2) 137 mmol/L 134-144 Potassium (test code = 2823-3) 4.9 mmol/L 3.5-5.2 Chloride (test code = 2075-0) 93 mmol/L 96-106 L Carbon Dioxide, Total (test 29 mmol/L 20-29 code = 8-9) Calcium (test code = 38194-9) 9.5 mg/dL 8.7-10.2 Protein, Total (test code = 6.5 g/dL 6.0-8.5 2885-2) Albumin (test code = 1751-7) 3.6 g/dL 4.0-5.0 L Globulin, Total (test code = 2.9 g/dL 1.5-4.5 48013-4) A/G Ratio (test code = 1759-0) 1.2 1.2-2.2 Bilirubin, Total (test code = 0.5 mg/dL 0.0-1.2 1975-2) Alkaline Phosphatase (test 103 IU/L 39-117 code = 6768-6) AST (SGOT) (test code = 20 IU/L 0-40 1920-8) ALT (SGPT) (test code = 30 IU/L 0-44 1742-6) [facility]: Lipid [id number] 03:19:00 Test Item Value Reference Range Interpretation Comments Cholesterol, Total (test code = 231 mg/dL 100-199 H 2093-3) Triglycerides (test code = 2571-8) 215 mg/dL 0-149 H HDL Cholesterol (test code = 34 mg/dL >39 L 5-9) VLDL Cholesterol Renuka (test code = 43 mg/dL 5-40 H 97661-9) LDL Cholesterol Calc (test code = 154 mg/dL 0-99 H 00062-5) Comment: (test code = 03869-2) [facility]: Comp. Metabolic Panel (14)2019-11-10 03:19:00 Test Item Value Reference Range Interpretation Comments Glucose (test code = 2345-7) 439 mg/dL 65-99 H BUN (test code = 3094-0) 49 mg/dL 6-24 H Creatinine (test code = 2.17 mg/dL 0.76-1.27 H 2160-0) eGFR If NonAfricn Am (test 35 mL/min/1.73 >59 L code = 45886-7) eGFR If Africn Am (test code = 41 mL/min/1.73 >59 L 06366-8) BUN/Creatinine Ratio (test 23 9-20 H code = 3097-3) Sodium (test code = 2951-2) 137 mmol/L 134-144 Potassium (test code = 2823-3) 4.9 mmol/L 3.5-5.2 Chloride (test code = 2075-0) 93 mmol/L 96-106 L Carbon Dioxide, Total (test 29 mmol/L 20-29 code = 2027-9) Calcium (test code = 73961-1) 9.5 mg/dL 8.7-10.2 Protein, Total (test code = 6.5 g/dL 6.0-8.5 2885-2) Albumin (test code = 1751-7) 3.6 g/dL 4.0-5.0 L Globulin, Total (test code = 2.9 g/dL 1.5-4.5 63692-6) A/G Ratio (test code = 1759-0) 1.2 1.2-2.2 Bilirubin, Total (test code = 0.5 mg/dL 0.0-1.2 1975-2) Alkaline Phosphatase (test 103 IU/L 39-117 code = 6768-6) AST (SGOT) (test code = 20 IU/L 0-40 1920-8) ALT (SGPT) (test code = 30 IU/L 0-44 1742-6) [facility] Description: Lipid [id number] 03:19:00 Test Item Value Reference Range Interpretation Comments Cholesterol, Total (test code = 231 mg/dL 100-199 H 3-3) Triglycerides (test code = 2571-8) 215 mg/dL 0-149 H HDL Cholesterol (test code = 34 mg/dL >39 L 2084-9) VLDL Cholesterol Renuka (test code = 43 mg/dL 5-40 H 69427-0) LDL Cholesterol Calc (test code = 154 mg/dL 0-99 H 80090-1) Comment: (test code = 30688-9) [facility] Description: Comp. Metabolic Panel (14)2019-11-10 03:19:00 Test Item Value Reference Range Interpretation Comments Glucose (test code = 2345-7) 439 mg/dL 65-99 H BUN (test code = 3094-0) 49 mg/dL 6-24 H Creatinine (test code = 2.17 mg/dL 0.76-1.27 H 2160-0) eGFR If NonAfricn Am (test 35 mL/min/1.73 >59 L code = 40250-8) eGFR If Africn Am (test code = 41 mL/min/1.73 >59 L 94395-5) BUN/Creatinine Ratio (test 23 9-20 H code = 3097-3) Sodium (test code = 2951-2) 137 mmol/L 134-144 Potassium (test code = 2823-3) 4.9 mmol/L 3.5-5.2 Chloride (test code = 2075-0) 93 mmol/L 96-106 L Carbon Dioxide, Total (test 29 mmol/L 20-29 code = 2028-9) Calcium (test code = 64773-8) 9.5 mg/dL 8.7-10.2 Protein, Total (test code = 6.5 g/dL 6.0-8.5 2885-2) Albumin (test code = 1751-7) 3.6 g/dL 4.0-5.0 L Globulin, Total (test code = 2.9 g/dL 1.5-4.5 30070-6) A/G Ratio (test code = 1759-0) 1.2 1.2-2.2 Bilirubin, Total (test code = 0.5 mg/dL 0.0-1.2 1975-2) Alkaline Phosphatase (test 103 IU/L 39-117 code = 6768-6) AST (SGOT) (test code = 20 IU/L 0-40 1920-8) ALT (SGPT) (test code = 30 IU/L 0-44 1742-6) [facility] Description: Lipid [id number] 03:19:00 Test Item Value Reference Range Interpretation Comments Cholesterol, Total (test code = 231 mg/dL 100-199 H 3-3) Triglycerides (test code = 2571-8) 215 mg/dL 0-149 H HDL Cholesterol (test code = 34 mg/dL >39 L 5-9) VLDL Cholesterol Renuka (test code = 43 mg/dL 5-40 H 14212-6) LDL Cholesterol Calc (test code = 154 mg/dL 0-99 H 93412-5) Comment: (test code = 95866-7) [facility], CHEST, 1 VIEW, NON [id number] 23:44:00Reason for exam:- >SHORTNESS OF BREATHReason for [...] pg/mL 0-100 H (test code = 700) Director Supply ID - LACIE BTROPONIN [id number] 23:17:00 Test Item Value Reference Range Interpretation [...] failure, acidosis, acute neurological disease, and persistent tachyarrhythmia.Director Supply ID - LACIE BCOMPREHENSIVE METABOLIC [id number] 23:11:00 Test Item Value Reference Range Interpretation [...] S NOT APPLICABLE FOR DIALYSIS PATIEN TS. Director Supply ID - LACIE BCBC W/PLT COUNT & AUTO [id number] 22:51:00 Test Item Value Reference Range Interpretation [...] = 2801) Panel Description: Hemoglobin A1c/Hemoglobin.total in [id number] 09:26:00 Test Item Value Reference Range Interpretation Comments Hemoglobin A1c (test code 10.1 % 4.8-5.6 H = 4548-4) . Prediabetes: 5. 7 - 6.4 Diabete s: >6.4 Glycemi c control for niall lts with diabetes: <7.0

P erforme d by:
[facility] ([place])

[facility] Description: Hemoglobin A1c/Hemoglobin.total in Blood 2019-07-04 09:26:00 Test Item Value Reference Range Interpretation Comments Hemoglobin A1c (test code 10.1 % 4.8-5.6 H = 4548-4) . Prediabetes: 5. 7 - 6.4 Diabete s: >6.4 Glycemi c control for niall lts with diabetes: <7.0

P erforme d by:
[facility] [place] ([place])

[facility] Description: Hemoglobin A1c/Hemoglobin.total in Blood 2019-07-04 09:26:00 Test Item Value Reference Range Interpretation Comments Hemoglobin A1c (test code 10.1 % 4.8-5.6 H = 4548-4) . Prediabetes: 5. 7 - 6.4 Diabete s: >6.4 Glycemi c control for niall lts with diabetes: <7.0

P erforme d by:
[facility] ([place])

[facility] Description: Hemoglobin A1c/Hemoglobin.total in Blood 2019-07-04 09:26:00 Test Item Value Reference Range Interpretation Comments Hemoglobin A1c (test code 10.1 % 4.8-5.6 H = 4548-4) . Prediabetes: 5. 7 - 6.4 Diabete s: >6.4 Glycemi c control for niall lts with diabetes: <7.0

P erforme d by:
[facility] [place] ([place])

[facility] Description: Hemoglobin A1c/Hemoglobin.total in Blood 2019-07-04 09:26:00 Test Item Value Reference Range Interpretation Comments Hemoglobin A1c (test code 10.1 % 4.8-5.6 H = 4548-4) . Prediabetes: 5. 7 - 6.4 Diabete s: >6.4 Glycemi c control for niall lts with diabetes: <7.0

P erforme d by:
[facility] [place] ([place])

[facility] Description: Hemoglobin A1c/Hemoglobin.total in Blood 2019-07-04 09:26:00 Test Item Value Reference Range Interpretation Comments Hemoglobin A1c (test code 10.1 % 4.8-5.6 H = 4548-4) . Prediabetes: 5. 7 - 6.4 Diabete s: >6.4 Glycemi c control for niall lts with diabetes: <7.0

P erforme d by:
[facility] [place] ([place])

[facility] Description: Hemoglobin A1c/Hemoglobin.total in Blood 2019-07-04 09:26:00 Test Item Value Reference Range Interpretation Comments Hemoglobin A1c (test code 10.1 % 4.8-5.6 H = 4548-4) . Prediabetes: 5. 7 - 6.4 Diabete s: >6.4 Glycemi c control for niall lts with diabetes: <7.0

P erforme d by:
[facility] ([place])

[facility] Description: Hemoglobin A1c/Hemoglobin.total in Blood 2019-07-04 09:26:00 Test Item Value Reference Range Interpretation Comments Hemoglobin A1c (test code 10.1 % 4.8-5.6 H = 4548-4) . Prediabetes: 5. 7 - 6.4 Diabete s: >6.4 Glycemi c control for niall lts with diabetes: <7.0

P erforme d by:
[facility] [place] ([place])

[facility] Description: Hemoglobin A1c/Hemoglobin.total in Blood 2019-07-04 09:26:00 Test Item Value Reference Range Interpretation Comments Hemoglobin A1c (test code 10.1 % 4.8-5.6 H = 4548-4) . Prediabetes: 5. 7 - 6.4 Diabete s: >6.4 Glycemi c control for niall lts with diabetes: <7.0

P erforme d by:
[facility] [place] ([place])

[facility] Description: Hemoglobin A1c/Hemoglobin.total in Blood 2019-07-04 09:26:00 Test Item Value Reference Range Interpretation Comments Hemoglobin A1c (test code 10.1 % 4.8-5.6 H = 4548-4) . Prediabetes: 5. 7 - 6.4 Diabete s: >6.4 Glycemi c control for niall lts with diabetes: <7.0

P erforme d by:
[facility] [place] ([place])

[facility] Description: Hemoglobin A1c/Hemoglobin.total in Blood 2019-07-04 09:26:00 Test Item Value Reference Range Interpretation Comments Hemoglobin A1c (test code 10.1 % 4.8-5.6 H = 4548-4) . Prediabetes: 5. 7 - 6.4 Diabete s: >6.4 Glycemi c control for niall lts with diabetes: <7.0

P erforme d by:
[facility] ([place])

[facility] Description: Hemoglobin A1c/Hemoglobin.total in Blood 2019-07-04 09:26:00 Test Item Value Reference Range Interpretation Comments Hemoglobin A1c (test code 10.1 % 4.8-5.6 H = 4548-4) . Prediabetes: 5. 7 - 6.4 Diabete s: >6.4 Glycemi c control for niall lts with diabetes: <7.0

P erforme d by:
[facility] [place] ([place])

[facility] Description: Hemoglobin A1c/Hemoglobin.total in Blood 2019-07-04 09:26:00 Test Item Value Reference Range Interpretation Comments Hemoglobin A1c (test code 10.1 % 4.8-5.6 H = 4548-4) . Prediabetes: 5. 7 - 6.4 Diabete s: >6.4 Glycemi c control for niall lts with diabetes: <7.0

P erforme d by:
[facility] [place] ([place])

[facility] Description: Hemoglobin A1c/Hemoglobin.total in Blood 2019-07-04 09:26:00 Test Item Value Reference Range Interpretation Comments Hemoglobin A1c (test code 10.1 % 4.8-5.6 H = 4548-4) . Prediabetes: 5. 7 - 6.4 Diabete s: >6.4 Glycemi c control for niall lts with diabetes: <7.0

P erforme d by:
[facility] [place] ([place])

[facility] Description: Hemoglobin A1c/Hemoglobin.total in Blood 2019-07-04 09:26:00 Test Item Value Reference Range Interpretation Comments Hemoglobin A1c (test code 10.1 % 4.8-5.6 H = 4548-4) . Prediabetes: 5. 7 - 6.4 Diabete s: >6.4 Glycemi c control for niall lts with diabetes: <7.0

P erforme d by:
[facility] ([place])

[facility] Description: Hemoglobin A1c/Hemoglobin.total in Blood 2019-07-04 09:26:00 Test Item Value Reference Range Interpretation Comments Hemoglobin A1c (test code 10.1 % 4.8-5.6 H = 4548-4) . Prediabetes: 5. 7 - 6.4 Diabete s: >6.4 Glycemi c control for niall lts with diabetes: <7.0

P erforme d by:
[facility] [place] ([place])

[facility] Description: Hemoglobin A1c/Hemoglobin.total in Blood 2019-07-04 09:26:00 Test Item Value Reference Range Interpretation Comments Hemoglobin A1c (test code 10.1 % 4.8-5.6 H = 4548-4) . Prediabetes: 5. 7 - 6.4 Diabete s: >6.4 Glycemi c control for niall lts with diabetes: <7.0

P erforme d by:
[facility] [place] ([place])

Access [facility] Description: Hemoglobin A1c/Hemoglobin.total in Blood 2019-07-04 09:26:00 Test Item Value Reference Range Interpretation Comments Hemoglobin A1c (test code 10.1 % 4.8-5.6 H = 4548-4) . Prediabetes: 5. 7 - 6.4 Diabete s: >6.4 Glycemi c control for niall lts with diabetes: <7.0

P erforme d by:
[facility] [place] ([place])

[facility] Description: Hemoglobin A1c/Hemoglobin.total in Blood 2019-07-04 09:26:00 Test Item Value Reference Range Interpretation Comments Hemoglobin A1c (test code 10.1 % 4.8-5.6 H = 4548-4) . Prediabetes: 5. 7 - 6.4 Diabete s: >6.4 Glycemi c control for niall lts with diabetes: <7.0

P erforme d by:
[facility] ([place])

[facility] Description: Hemoglobin A1c/Hemoglobin.total in Blood 2019-07-04 09:26:00 Test Item Value Reference Range Interpretation Comments Hemoglobin A1c (test code 10.1 % 4.8-5.6 H = 4548-4) . Prediabetes: 5. 7 - 6.4 Diabete s: >6.4 Glycemi c control for niall lts with diabetes: <7.0

P erforme d by:
[facility] [place] ([place])

[facility] Description: Hemoglobin A1c/Hemoglobin.total in Blood 2019-07-04 09:26:00 Test Item Value Reference Range Interpretation Comments Hemoglobin A1c (test code 10.1 % 4.8-5.6 H = 4548-4) . Prediabetes: 5. 7 - 6.4 Diabete s: >6.4 Glycemi c control for niall lts with diabetes: <7.0

P erforme d by:
[facility] [place] ([place])

[facility] Description: Hemoglobin A1c/Hemoglobin.total in Blood 2019-07-04 09:26:00 Test Item Value Reference Range Interpretation Comments Hemoglobin A1c (test code 10.1 % 4.8-5.6 H = 4548-4) . Prediabetes: 5. 7 - 6.4 Diabete s: >6.4 Glycemi c control for niall lts with diabetes: <7.0

P erforme d by:
[facility] [place] ([place])

[facility] Description: Hemoglobin A1c/Hemoglobin.total in Blood 2019-07-04 09:26:00 Test Item Value Reference Range Interpretation Comments Hemoglobin A1c (test code 10.1 % 4.8-5.6 H = 4548-4) . Prediabetes: 5. 7 - 6.4 Diabete s: >6.4 Glycemi c control for niall lts with diabetes: <7.0

P erforme d by:
[facility] ([place])

[facility] Description: Hemoglobin A1c/Hemoglobin.total in Blood 2019-07-04 09:26:00 Test Item Value Reference Range Interpretation Comments Hemoglobin A1c (test code 10.1 % 4.8-5.6 H = 4548-4) . Prediabetes: 5. 7 - 6.4 Diabete s: >6.4 Glycemi c control for niall lts with diabetes: <7.0

P erforme d by:
[facility] [place] ([place])

[facility] Description: Hemoglobin A1c/Hemoglobin.total in Blood 2019-07-04 09:26:00 Test Item Value Reference Range Interpretation Comments Hemoglobin A1c (test code 10.1 % 4.8-5.6 H = 4548-4) . Prediabetes: 5. 7 - 6.4 Diabete s: >6.4 Glycemi c control for niall lts with diabetes: <7.0

P erforme d by:
[facility] [place] ([place])

[facility] Description: Hemoglobin A1c/Hemoglobin.total in Blood 2019-07-04 09:26:00 Test Item Value Reference Range Interpretation Comments Hemoglobin A1c (test code 10.1 % 4.8-5.6 H = 4548-4) . Prediabetes: 5. 7 - 6.4 Diabete s: >6.4 Glycemi c control for niall lts with diabetes: <7.0

P erforme d by:
[facility] ([place])

[facility]: Hemoglobin A1c/Hemoglobin.total in Blood 2019-07-04 09:26:00 Test Item Value Reference Range Interpretation Comments Hemoglobin A1c (test code 10.1 % 4.8-5.6 H = 4548-4) . Prediabetes: 5. 7 - 6.4 Diabete s: >6.4 Glycemi c control for niall lts with diabetes: <7.0

P erforme d by:
[facility] ([place])

[facility] Description: Lipid [id number] 01:17:00 Test Item Value Reference Range Interpretation Comments Cholesterol, Total (test code = 241 mg/dL 100-199 H 2093-3) Triglycerides (test code = 2571-8) 57 mg/dL 0-149 HDL Cholesterol (test code = 37 mg/dL >39 L 5-9) VLDL Cholesterol Renuka (test code = 11 mg/dL 5-40 16294-6) LDL Cholesterol Calc (test code = 193 mg/dL 0-99 H 95912-6) Comment: (test code = 23552-1) [facility] Description: Lipid [id number] 01:17:00 Test Item Value Reference Range Interpretation Comments Cholesterol, Total (test code = 241 mg/dL 100-199 H 2093-3) Triglycerides (test code = 2571-8) 57 mg/dL 0-149 HDL Cholesterol (test code = 37 mg/dL >39 L 5-9) VLDL Cholesterol Renuka (test code = 11 mg/dL 5-40 37802-7) LDL Cholesterol Calc (test code = 193 mg/dL 0-99 H 21336-0) Comment: (test code = 27415-1) [facility] Description: Lipid [id number] 01:17:00 Test Item Value Reference Range Interpretation Comments Cholesterol, Total (test code = 241 mg/dL 100-199 H 2093-3) Triglycerides (test code = 2571-8) 57 mg/dL 0-149 HDL Cholesterol (test code = 37 mg/dL >39 L 2085-9) VLDL Cholesterol Renuka (test code = 11 mg/dL 5-40 60114-3) LDL Cholesterol Calc (test code = 193 mg/dL 0-99 H 29283-8) Comment: (test code = 78643-4) [facility] Description: Lipid [id number] 01:17:00 Test Item Value Reference Range Interpretation Comments Cholesterol, Total (test code = 241 mg/dL 100-199 H 2093-3) Triglycerides (test code = 2571-8) 57 mg/dL 0-149 HDL Cholesterol (test code = 37 mg/dL >39 L 2085-9) VLDL Cholesterol Renuka (test code = 11 mg/dL 5-40 57698-7) LDL Cholesterol Calc (test code = 193 mg/dL 0-99 H 54889-2) Comment: (test code = 46697-1) [facility] Description: Lipid [id number] 01:17:00 Test Item Value Reference Range Interpretation Comments Cholesterol, Total (test code = 241 mg/dL 100-199 H 2093-3) Triglycerides (test code = 2571-8) 57 mg/dL 0-149 HDL Cholesterol (test code = 37 mg/dL >39 L 5-9) VLDL Cholesterol Renuka (test code = 11 mg/dL 5-40 59106-5) LDL Cholesterol Calc (test code = 193 mg/dL 0-99 H 65311-2) Comment: (test code = 82136-1) [facility] Description: Lipid [id number] 01:17:00 Test Item Value Reference Range Interpretation Comments Cholesterol, Total (test code = 241 mg/dL 100-199 H 2093-3) Triglycerides (test code = 2571-8) 57 mg/dL 0-149 HDL Cholesterol (test code = 37 mg/dL >39 L 2085-9) VLDL Cholesterol Renuka (test code = 11 mg/dL 5-40 62221-2) LDL Cholesterol Calc (test code = 193 mg/dL 0-99 H 65447-1) Comment: (test code = 10828-0) [facility] Description: Lipid [id number] 01:17:00 Test Item Value Reference Range Interpretation Comments Cholesterol, Total (test code = 241 mg/dL 100-199 H 2093-3) Triglycerides (test code = 2571-8) 57 mg/dL 0-149 HDL Cholesterol (test code = 37 mg/dL >39 L 2085-9) VLDL Cholesterol Renuka (test code = 11 mg/dL 5-40 11898-3) LDL Cholesterol Calc (test code = 193 mg/dL 0-99 H 42084-7) Comment: (test code = 11392-3) [facility] Description: Lipid [id number] 01:17:00 Test Item Value Reference Range Interpretation Comments Cholesterol, Total (test code = 241 mg/dL 100-199 H 2093-3) Triglycerides (test code = 2571-8) 57 mg/dL 0-149 HDL Cholesterol (test code = 37 mg/dL >39 L 2085-9) VLDL Cholesterol Renuka (test code = 11 mg/dL 5-40 18889-3) LDL Cholesterol Calc (test code = 193 mg/dL 0-99 H 99115-0) Comment: (test code = 59454-8) [facility] Description: Lipid [id number] 01:17:00 Test Item Value Reference Range Interpretation Comments Cholesterol, Total (test code = 241 mg/dL 100-199 H 2093-3) Triglycerides (test code = 2571-8) 57 mg/dL 0-149 HDL Cholesterol (test code = 37 mg/dL >39 L 2085-9) VLDL Cholesterol Renuka (test code = 11 mg/dL 5-40 64553-8) LDL Cholesterol Calc (test code = 193 mg/dL 0-99 H 79038-8) Comment: (test code = 39556-3) [facility] Description: Lipid [id number] 01:17:00 Test Item Value Reference Range Interpretation Comments Cholesterol, Total (test code = 241 mg/dL 100-199 H 2093-3) Triglycerides (test code = 2571-8) 57 mg/dL 0-149 HDL Cholesterol (test code = 37 mg/dL >39 L 2085-9) VLDL Cholesterol Renuka (test code = 11 mg/dL 5-40 77199-5) LDL Cholesterol Calc (test code = 193 mg/dL 0-99 H 33287-3) Comment: (test code = 02886-6) [facility] Description: Lipid [id number] 01:17:00 Test Item Value Reference Range Interpretation Comments Cholesterol, Total (test code = 241 mg/dL 100-199 H 2093-3) Triglycerides (test code = 2571-8) 57 mg/dL 0-149 HDL Cholesterol (test code = 37 mg/dL >39 L 2085-9) VLDL Cholesterol Renuka (test code = 11 mg/dL 5-40 29622-3) LDL Cholesterol Calc (test code = 193 mg/dL 0-99 H 50100-5) Comment: (test code = 70282-1) [facility] Description: Lipid [id number] 01:17:00 Test Item Value Reference Range Interpretation Comments Cholesterol, Total (test code = 241 mg/dL 100-199 H 2093-3) Triglycerides (test code = 2571-8) 57 mg/dL 0-149 HDL Cholesterol (test code = 37 mg/dL >39 L 2085-9) VLDL Cholesterol Renuka (test code = 11 mg/dL 5-40 75092-1) LDL Cholesterol Calc (test code = 193 mg/dL 0-99 H 98173-1) Comment: (test code = 92832-6) [facility] Description: Lipid [id number] 01:17:00 Test Item Value Reference Range Interpretation Comments Cholesterol, Total (test code = 241 mg/dL 100-199 H 2093-3) Triglycerides (test code = 2571-8) 57 mg/dL 0-149 HDL Cholesterol (test code = 37 mg/dL >39 L 2085-9) VLDL Cholesterol Renuka (test code = 11 mg/dL 5-40 82796-4) LDL Cholesterol Calc (test code = 193 mg/dL 0-99 H 40436-7) Comment: (test code = 34988-0) [facility] Description: Lipid [id number] 01:17:00 Test Item Value Reference Range Interpretation Comments Cholesterol, Total (test code = 241 mg/dL 100-199 H 2093-3) Triglycerides (test code = 2571-8) 57 mg/dL 0-149 HDL Cholesterol (test code = 37 mg/dL >39 L 2085-9) VLDL Cholesterol Renuka (test code = 11 mg/dL 5-40 33877-2) LDL Cholesterol Calc (test code = 193 mg/dL 0-99 H 92401-0) Comment: (test code = 85376-2) [facility] Description: Lipid [id number] 01:17:00 Test Item Value Reference Range Interpretation Comments Cholesterol, Total (test code = 241 mg/dL 100-199 H 2093-3) Triglycerides (test code = 2571-8) 57 mg/dL 0-149 HDL Cholesterol (test code = 37 mg/dL >39 L 2085-9) VLDL Cholesterol Renuka (test code = 11 mg/dL 5-40 43688-1) LDL Cholesterol Calc (test code = 193 mg/dL 0-99 H 02704-4) Comment: (test code = 99196-8) [facility] Description: Lipid [id number] 01:17:00 Test Item Value Reference Range Interpretation Comments Cholesterol, Total (test code = 241 mg/dL 100-199 H 2093-3) Triglycerides (test code = 2571-8) 57 mg/dL 0-149 HDL Cholesterol (test code = 37 mg/dL >39 L 2085-9) VLDL Cholesterol Renuka (test code = 11 mg/dL 5-40 09926-9) LDL Cholesterol Calc (test code = 193 mg/dL 0-99 H 57686-5) Comment: (test code = 02011-4) [facility] Description: Lipid [id number] 01:17:00 Test Item Value Reference Range Interpretation Comments Cholesterol, Total (test code = 241 mg/dL 100-199 H 2093-3) Triglycerides (test code = 2571-8) 57 mg/dL 0-149 HDL Cholesterol (test code = 37 mg/dL >39 L 2085-9) VLDL Cholesterol Renuka (test code = 11 mg/dL 5-40 52377-1) LDL Cholesterol Calc (test code = 193 mg/dL 0-99 H 71717-3) Comment: (test code = 76840-3) [facility] Description: Lipid [id number] 01:17:00 Test Item Value Reference Range Interpretation Comments Cholesterol, Total (test code = 241 mg/dL 100-199 H 2093-3) Triglycerides (test code = 2571-8) 57 mg/dL 0-149 HDL Cholesterol (test code = 37 mg/dL >39 L 2085-9) VLDL Cholesterol Renuka (test code = 11 mg/dL 5-40 83525-8) LDL Cholesterol Calc (test code = 193 mg/dL 0-99 H 25937-9) Comment: (test code = 45824-9) [facility] Description: Lipid [id number] 01:17:00 Test Item Value Reference Range Interpretation Comments Cholesterol, Total (test code = 241 mg/dL 100-199 H 2093-3) Triglycerides (test code = 2571-8) 57 mg/dL 0-149 HDL Cholesterol (test code = 37 mg/dL >39 L 2085-9) VLDL Cholesterol Renuka (test code = 11 mg/dL 5-40 92234-8) LDL Cholesterol Calc (test code = 193 mg/dL 0-99 H 98616-6) Comment: (test code = 51208-7) [facility] Description: Lipid [id number] 01:17:00 Test Item Value Reference Range Interpretation Comments Cholesterol, Total (test code = 241 mg/dL 100-199 H 2093-3) Triglycerides (test code = 2571-8) 57 mg/dL 0-149 HDL Cholesterol (test code = 37 mg/dL >39 L 2085-9) VLDL Cholesterol Renuka (test code = 11 mg/dL 5-40 71507-8) LDL Cholesterol Calc (test code = 193 mg/dL 0-99 H 07941-9) Comment: (test code = 45407-3) [facility] Description: Lipid [id number] 01:17:00 Test Item Value Reference Range Interpretation Comments Cholesterol, Total (test code = 241 mg/dL 100-199 H 2093-3) Triglycerides (test code = 2571-8) 57 mg/dL 0-149 HDL Cholesterol (test code = 37 mg/dL >39 L 2085-9) VLDL Cholesterol Renuka (test code = 11 mg/dL 5-40 68081-6) LDL Cholesterol Calc (test code = 193 mg/dL 0-99 H 22222-5) Comment: (test code = 59295-4) [facility] Description: Lipid [id number] 01:17:00 Test Item Value Reference Range Interpretation Comments Cholesterol, Total (test code = 241 mg/dL 100-199 H 2093-3) Triglycerides (test code = 2571-8) 57 mg/dL 0-149 HDL Cholesterol (test code = 37 mg/dL >39 L 2085-9) VLDL Cholesterol Renuka (test code = 11 mg/dL 5-40 50662-1) LDL Cholesterol Calc (test code = 193 mg/dL 0-99 H 98164-7) Comment: (test code = 91362-4) [facility] Description: Lipid [id number] 01:17:00 Test Item Value Reference Range Interpretation Comments Cholesterol, Total (test code = 241 mg/dL 100-199 H 2093-3) Triglycerides (test code = 2571-8) 57 mg/dL 0-149 HDL Cholesterol (test code = 37 mg/dL >39 L 2085-9) VLDL Cholesterol Renuka (test code = 11 mg/dL 5-40 82423-6) LDL Cholesterol Calc (test code = 193 mg/dL 0-99 H 50263-7) Comment: (test code = 21760-0) [facility] Description: Lipid [id number] 01:17:00 Test Item Value Reference Range Interpretation Comments Cholesterol, Total (test code = 241 mg/dL 100-199 H 2093-3) Triglycerides (test code = 2571-8) 57 mg/dL 0-149 HDL Cholesterol (test code = 37 mg/dL >39 L 2085-9) VLDL Cholesterol Renuka (test code = 11 mg/dL 5-40 81045-6) LDL Cholesterol Calc (test code = 193 mg/dL 0-99 H 90842-8) Comment: (test code = 24518-9) [facility] Description: Lipid [id number] 01:17:00 Test Item Value Reference Range Interpretation Comments Cholesterol, Total (test code = 241 mg/dL 100-199 H 2093-3) Triglycerides (test code = 2571-8) 57 mg/dL 0-149 HDL Cholesterol (test code = 37 mg/dL >39 L 2085-9) VLDL Cholesterol Renuka (test code = 11 mg/dL 5-40 25244-9) LDL Cholesterol Calc (test code = 193 mg/dL 0-99 H 03126-8) Comment: (test code = 56178-6) [facility] Description: Lipid [id number] 01:17:00 Test Item Value Reference Range Interpretation Comments Cholesterol, Total (test code = 241 mg/dL 100-199 H 2093-3) Triglycerides (test code = 2571-8) 57 mg/dL 0-149 HDL Cholesterol (test code = 37 mg/dL >39 L 5-9) VLDL Cholesterol Renuka (test code = 11 mg/dL 5-40 60858-5) LDL Cholesterol Calc (test code = 193 mg/dL 0-99 H 55613-8) Comment: (test code = 51821-8) [facility] Description: Lipid [id number] 01:17:00 Test Item Value Reference Range Interpretation Comments Cholesterol, Total (test code = 241 mg/dL 100-199 H 2093-3) Triglycerides (test code = 2571-8) 57 mg/dL 0-149 HDL Cholesterol (test code = 37 mg/dL >39 L 5-9) VLDL Cholesterol Renuka (test code = 11 mg/dL 5-40 18099-4) LDL Cholesterol Calc (test code = 193 mg/dL 0-99 H 74476-4) Comment: (test code = 52987-9) [facility] Description: Comp. Metabolic Panel (14)2019-07-04 01:03:00 Test Item Value Reference Range Interpretation Comments Glucose (test code = 2345-7) 262 mg/dL 65-99 H BUN (test code = 3094-0) 27 mg/dL 6-24 H Creatinine (test code = 1.46 mg/dL 0.76-1.27 H 2160-0) eGFR If NonAfricn Am (test 57 mL/min/1.73 >59 L code = 91732-0) eGFR If Africn Am (test code = 66 mL/min/1.73 >59 90897-4) BUN/Creatinine Ratio (test 18 9-20 code = 3097-3) Sodium (test code = 2951-2) 140 mmol/L 134-144 Potassium (test code = 2823-3) 4.4 mmol/L 3.5-5.2 Chloride (test code = 2075-0) 106 mmol/L 96-106 Carbon Dioxide, Total (test 23 mmol/L 20-29 code = 8-9) Calcium (test code = 55031-4) 8.7 mg/dL 8.7-10.2 Protein, Total (test code = 5.3 g/dL 6.0-8.5 L 2885-2) Albumin (test code = 1751-7) 3.0 g/dL 4.0-5.0 L Globulin, Total (test code = 2.3 g/dL 1.5-4.5 02891-4) A/G Ratio (test code = 1759-0) 1.3 [...] (test 57 mL/min/1.73 >59 L code = 44939-8) eGFR If Africn Am (test code = 66 mL/min/1.73 >59 21642-1) BUN/Creatinine Ratio (test 18 9-20 code = 3097-3) Sodium (test code = 2951-2) 140 mmol/L 134-144 Potassium (test code = 2823-3) 4.4 mmol/L 3.5-5.2 Chloride (test code = 2075-0) 106 mmol/L 96-106 Carbon Dioxide, Total (test 23 mmol/L 20-29 code = 8-9) Calcium (test code = 50250-2) 8.7 mg/dL 8.7-10.2 Protein, Total (test code = 5.3 g/dL 6.0-8.5 L 2885-2) Albumin (test code = 1751-7) 3.0 g/dL 4.0-5.0 L Globulin, Total (test code = 2.3 g/dL 1.5-4.5 72684-8) A/G Ratio (test code = 1759-0) 1.3 [...] (test 57 mL/min/1.73 >59 L code = 32315-7) eGFR If Africn Am (test code = 66 mL/min/1.73 >59 27245-7) BUN/Creatinine Ratio (test 18 9-20 code = 3097-3) Sodium (test code = 2951-2) 140 mmol/L 134-144 Potassium (test code = 2823-3) 4.4 mmol/L 3.5-5.2 Chloride (test code = 2075-0) 106 mmol/L 96-106 Carbon Dioxide, Total (test 23 mmol/L 20-29 code = 8-9) Calcium (test code = 83545-4) 8.7 mg/dL 8.7-10.2 Protein, Total (test code = 5.3 g/dL 6.0-8.5 L 2885-2) Albumin (test code = 1751-7) 3.0 g/dL 4.0-5.0 L Globulin, Total (test code = 2.3 g/dL 1.5-4.5 01364-6) A/G Ratio (test code = 1759-0) 1.3 [...] (test 57 mL/min/1.73 >59 L code = 37322-5) eGFR If Africn Am (test code = 66 mL/min/1.73 >59 63526-2) BUN/Creatinine Ratio (test 18 9-20 code = 3097-3) Sodium (test code = 2951-2) 140 mmol/L 134-144 Potassium (test code = 2823-3) 4.4 mmol/L 3.5-5.2 Chloride (test code = 2075-0) 106 mmol/L 96-106 Carbon Dioxide, Total (test 23 mmol/L 20-29 code = 8-9) Calcium (test code = 62120-8) 8.7 mg/dL 8.7-10.2 Protein, Total (test code = 5.3 g/dL 6.0-8.5 L 2885-2) Albumin (test code = 1751-7) 3.0 g/dL 4.0-5.0 L Globulin, Total (test code = 2.3 g/dL 1.5-4.5 24559-9) A/G Ratio (test code = 1759-0) 1.3 [...] (test 57 mL/min/1.73 >59 L code = 68883-3) eGFR If Africn Am (test code = 66 mL/min/1.73 >59 67398-0) BUN/Creatinine Ratio (test 18 9-20 code = 3097-3) Sodium (test code = 2951-2) 140 mmol/L 134-144 Potassium (test code = 2823-3) 4.4 mmol/L 3.5-5.2 Chloride (test code = 2075-0) 106 mmol/L 96-106 Carbon Dioxide, Total (test 23 mmol/L 20-29 code = 8-9) Calcium (test code = 84336-2) 8.7 mg/dL 8.7-10.2 Protein, Total (test code = 5.3 g/dL 6.0-8.5 L 2885-2) Albumin (test code = 1751-7) 3.0 g/dL 4.0-5.0 L Globulin, Total (test code = 2.3 g/dL 1.5-4.5 77724-7) A/G Ratio (test code = 1759-0) 1.3 1.2-2.2 Bilirubin, Total (test code = 0.5 mg/dL 0.0-1.2 1975-2) Alkaline Phosphatase (test 95 IU/L 39-117 code = 6768-6) AST (SGOT) (test code = 16 IU/L 0-40 1920-8) ALT (SGPT) (test code = 23 IU/L 0-44 1742-6) [facility] Description: Comp. Metabolic Panel (14)2019-07-04 01:03:00 Test Item Value Reference Range Interpretation Comments Glucose (test code = 2345-7) 262 mg/dL 65-99 H BUN (test code = 3094-0) 27 mg/dL 6-24 H Creatinine (test code = 1.46 mg/dL 0.76-1.27 H 2160-0) eGFR If NonAfricn Am (test 57 mL/min/1.73 >59 L code = 20311-2) eGFR If Africn Am (test code = 66 mL/min/1.73 >59 08036-0) BUN/Creatinine Ratio (test 18 9-20 code = 3097-3) Sodium (test code = 2951-2) 140 mmol/L 134-144 Potassium (test code = 2823-3) 4.4 mmol/L 3.5-5.2 Chloride (test code = 2075-0) 106 mmol/L 96-106 Carbon Dioxide, Total (test 23 mmol/L 20-29 code = 2028-9) Calcium (test code = 32498-3) 8.7 mg/dL 8.7-10.2 Protein, Total (test code = 5.3 g/dL 6.0-8.5 L 2885-2) Albumin (test code = 1751-7) 3.0 g/dL 4.0-5.0 L Globulin, Total (test code = 2.3 g/dL 1.5-4.5 07488-1) A/G Ratio (test code = 1759-0) 1.3 [...] (test 57 mL/min/1.73 >59 L code = 93557-9) eGFR If Africn Am (test code = 66 mL/min/1.73 >59 84790-2) BUN/Creatinine Ratio (test 18 12-16 code = 3097-3) Sodium (test code = 2951-2) 140 mmol/L 134-144 Potassium (test code = 2823-3) 4.4 mmol/L 3.5-5.2 Chloride (test code = 2075-0) 106 mmol/L 96-106 Carbon Dioxide, Total (test 23 mmol/L 20-29 code = 8-9) Calcium (test code = 08815-4) 8.7 mg/dL 8.7-10.2 Protein, Total (test code = 5.3 g/dL 6.0-8.5 L 2885-2) Albumin (test code = 1751-7) 3.0 g/dL 4.0-5.0 L Globulin, Total (test code = 2.3 g/dL 1.5-4.5 78127-0) A/G Ratio (test code = 1759-0) 1.3 [...] (test 57 mL/min/1.73 >59 L code = 20247-9) eGFR If Africn Am (test code = 66 mL/min/1.73 >59 00419-3) BUN/Creatinine Ratio (test 18 12-16 code = 3097-3) Sodium (test code = 2951-2) 140 mmol/L 134-144 Potassium (test code = 2823-3) 4.4 mmol/L 3.5-5.2 Chloride (test code = 2075-0) 106 mmol/L 96-106 Carbon Dioxide, Total (test 23 mmol/L - code = 2027-) Calcium (test code = 13985-9) 8.7 mg/dL 8.7-10.2 Protein, Total (test code = 5.3 g/dL 6.0-8.5 L 2885-2) Albumin (test code = 1751-7) 3.0 g/dL 4.0-5.0 L Globulin, Total (test code = 2.3 g/dL 1.5-4.5 71788-6) A/G Ratio (test code = 1759-0) 1.3 [...] (test 57 mL/min/1.73 >59 L code = 39603-7) eGFR If Africn Am (test code = 66 mL/min/1.73 >59 44935-7) BUN/Creatinine Ratio (test 18 -20 code = 3097-3) Sodium (test code = 2951-2) 140 mmol/L 134-144 Potassium (test code = 2823-3) 4.4 mmol/L 3.5-5.2 Chloride (test code = 2075-0) 106 mmol/L 96-106 Carbon Dioxide, Total (test 23 mmol/L - code = 2027-9) Calcium (test code = 32610-4) 8.7 mg/dL 8.7-10.2 Protein, Total (test code = 5.3 g/dL 6.0-8.5 L 2885-2) Albumin (test code = 1751-7) 3.0 g/dL 4.0-5.0 L Globulin, Total (test code = 2.3 g/dL 1.5-4.5 31415-9) A/G Ratio (test code = 1759-0) 1.3 1.2-2.2 Bilirubin, Total (test code = 0.5 mg/dL 0.0-1.2 1975-2) Alkaline Phosphatase (test 95 IU/L 39-117 code = 6768-6) AST (SGOT) (test code = 16 IU/L 0-40 1920-8) ALT (SGPT) (test code = 23 IU/L 0-44 1742-6) [facility] Description: Comp. Metabolic Panel (14)2019-07-04 01:03:00 Test Item Value Reference Range Interpretation Comments Glucose (test code = 2345-7) 262 mg/dL 65-99 H BUN (test code = 3094-0) 27 mg/dL 6-24 H Creatinine (test code = 1.46 mg/dL 0.76-1.27 H 2160-0) eGFR If NonAfricn Am (test 57 mL/min/1.73 >59 L code = 08531-1) eGFR If Africn Am (test code = 66 mL/min/1.73 >59 77705-4) BUN/Creatinine Ratio (test 18 -20 code = 3097-3) Sodium (test code = 2951-2) 140 mmol/L 134-144 Potassium (test code = 2823-3) 4.4 mmol/L 3.5-5.2 Chloride (test code = 2075-0) 106 mmol/L 96-106 Carbon Dioxide, Total (test 23 mmol/L 20-29 code = 8-9) Calcium (test code = 05523-9) 8.7 mg/dL 8.7-10.2 Protein, Total (test code = 5.3 g/dL 6.0-8.5 L 2885-2) Albumin (test code = 1751-7) 3.0 g/dL 4.0-5.0 L Globulin, Total (test code = 2.3 g/dL 1.5-4.5 59819-8) A/G Ratio (test code = 1759-0) 1.3 [...] (test 57 mL/min/1.73 >59 L code = 12300-1) eGFR If Africn Am (test code = 66 mL/min/1.73 >59 95851-7) BUN/Creatinine Ratio (test 18 9-20 code = 3097-3) Sodium (test code = 2951-2) 140 mmol/L 134-144 Potassium (test code = 2823-3) 4.4 mmol/L 3.5-5.2 Chloride (test code = 2075-0) 106 mmol/L 96-106 Carbon Dioxide, Total (test 23 mmol/L 20-29 code = 2028-9) Calcium (test code = 03668-8) 8.7 mg/dL 8.7-10.2 Protein, Total (test code = 5.3 g/dL 6.0-8.5 L 2885-2) Albumin (test code = 1751-7) 3.0 g/dL 4.0-5.0 L Globulin, Total (test code = 2.3 g/dL 1.5-4.5 05535-2) A/G Ratio (test code = 1759-0) 1.3 1.2-2.2 Bilirubin, Total (test code = 0.5 mg/dL 0.0-1.2 1974-) Alkaline Phosphatase (test 95 IU/L 39-117 code = 6768-6) AST (SGOT) (test code = 16 IU/L 0-40 1920-8) ALT (SGPT) (test code = 23 IU/L 0-44 1742-6) [facility] Description: Comp. Metabolic Panel (2019-07-04 01:03:00 Test Item Value Reference Range Interpretation Comments Glucose (test code = 2345-7) 262 mg/dL 65-99 H BUN (test code = 3094-0) 27 mg/dL 6-24 H Creatinine (test code = 1.46 mg/dL 0.76-1.27 H 2160-0) eGFR If NonAfricn Am (test 57 mL/min/1.73 >59 L code = 74249-9) eGFR If Africn Am (test code = 66 mL/min/1.73 >59 86313-4) BUN/Creatinine Ratio (test 18 9-20 code = 3097-3) Sodium (test code = 2951-2) 140 mmol/L 134-144 Potassium (test code = 2823-3) 4.4 mmol/L 3.5-5.2 Chloride (test code = 2075-0) 106 mmol/L 96-106 Carbon Dioxide, Total (test 23 mmol/L 20-29 code = 2028-9) Calcium (test code = 74306-1) 8.7 mg/dL 8.7-10.2 Protein, Total (test code = 5.3 g/dL 6.0-8.5 L 2885-2) Albumin (test code = 1751-7) 3.0 g/dL 4.0-5.0 L Globulin, Total (test code = 2.3 g/dL 1.5-4.5 50157-4) A/G Ratio (test code = 1759-0) 1.3 [...] (test 57 mL/min/1.73 >59 L code = 18864-0) eGFR If Africn Am (test code = 66 mL/min/1.73 >59 44704-6) BUN/Creatinine Ratio (test 18 -20 code = 3097-3) Sodium (test code = 2951-2) 140 mmol/L 134-144 Potassium (test code = 2823-3) 4.4 mmol/L 3.5-5.2 Chloride (test code = 2075-0) 106 mmol/L 96-106 Carbon Dioxide, Total (test 23 mmol/L 20-29 code = 2028-9) Calcium (test code = 18588-6) 8.7 mg/dL 8.7-10.2 Protein, Total (test code = 5.3 g/dL 6.0-8.5 L 2885-2) Albumin (test code = 1751-7) 3.0 g/dL 4.0-5.0 L Globulin, Total (test code = 2.3 g/dL 1.5-4.5 55186-4) A/G Ratio (test code = 1759-0) 1.3 1.2-2.2 Bilirubin, Total (test code = 0.5 mg/dL 0.0-1.2 1975-2) Alkaline Phosphatase (test 95 IU/L 39-117 code = 6768-6) AST (SGOT) (test code = 16 IU/L 0-40 0-8) ALT (SGPT) (test code = 23 IU/L [...] (test 57 mL/min/1.73 >59 L code = 38045-5) eGFR If Africn Am (test code = 66 mL/min/1.73 >59 46306-2) BUN/Creatinine Ratio (test 18 9-20 code = 3097-3) Sodium (test code = 2951-2) 140 mmol/L 134-144 Potassium (test code = 2823-3) 4.4 mmol/L 3.5-5.2 Chloride (test code = 2075-0) 106 mmol/L 96-106 Carbon Dioxide, Total (test 23 mmol/L 20-29 code = 2028-9) Calcium (test code = 07776-7) 8.7 mg/dL 8.7-10.2 Protein, Total (test code = 5.3 g/dL 6.0-8.5 L 2885-2) Albumin (test code = 1751-7) 3.0 g/dL 4.0-5.0 L Globulin, Total (test code = 2.3 g/dL 1.5-4.5 05960-7) A/G Ratio (test code = 1759-0) 1.3 1.2-2.2 Bilirubin, Total (test code = 0.5 mg/dL 0.0-1.2 1975-2) Alkaline Phosphatase (test 95 IU/L 39-117 code = 6768-6) AST (SGOT) (test code = 16 IU/L 0-40 1920-8) ALT (SGPT) (test code = 23 IU/L 0-44 1742-6) [facility] Description: Comp. Metabolic Panel (142019-07-04 01:03:00 Test Item Value Reference Range Interpretation Comments Glucose (test code = 2345-7) 262 mg/dL 65-99 H BUN (test code = 3094-0) 27 mg/dL 6-24 H Creatinine (test code = 1.46 mg/dL 0.76-1.27 H 2160-0) eGFR If NonAfricn Am (test 57 mL/min/1.73 >59 L code = 71697-3) eGFR If Africn Am (test code = 66 mL/min/1.73 >59 79394-1) BUN/Creatinine Ratio (test 12-16 code = 3097-3) Sodium (test code = 2951-2) 140 mmol/L 134-144 Potassium (test code = 2823-3) 4.4 mmol/L 3.5-5.2 Chloride (test code = 2075-0) 106 mmol/L 96-106 Carbon Dioxide, Total (test 23 mmol/L 20-29 code = 2028-9) Calcium (test code = 26496-1) 8.7 mg/dL 8.7-10.2 Protein, Total (test code = 5.3 g/dL 6.0-8.5 L 2885-2) Albumin (test code = 1751-7) 3.0 g/dL 4.0-5.0 L Globulin, Total (test code = 2.3 g/dL 1.5-4.5 71562-7) A/G Ratio (test code = 1759-0) 1.3 [...] (test 57 mL/min/1.73 >59 L code = 81127-1) eGFR If Africn Am (test code = 66 mL/min/1.73 >59 18262-5) BUN/Creatinine Ratio (test 12-16 code = 3097-3) Sodium (test code = 2951-2) 140 mmol/L 134-144 Potassium (test code = 2823-3) 4.4 mmol/L 3.5-5.2 Chloride (test code = 2075-0) 106 mmol/L 96-106 Carbon Dioxide, Total (test 23 mmol/L 20-29 code = 2028-9) Calcium (test code = 55330-7) 8.7 mg/dL 8.7-10.2 Protein, Total (test code = 5.3 g/dL 6.0-8.5 L 2885-2) Albumin (test code = 1751-7) 3.0 g/dL 4.0-5.0 L Globulin, Total (test code = 2.3 g/dL 1.5-4.5 07822-1) A/G Ratio (test code = 1759-0) 1.3 1.2-2.2 Bilirubin, Total (test code = 0.5 mg/dL 0.0-1.2 1975-2) Alkaline Phosphatase (test 95 IU/L 39-117 code = 6768-6) AST (SGOT) (test code = 16 IU/L 0-40 1920-8) ALT (SGPT) (test code = 23 IU/L 0-44 1742-6) [facility] Description: Comp. Metabolic Panel (14)2019-07-04 01:03:00 Test Item Value Reference Range Interpretation Comments Glucose (test code = 2345-7) 262 mg/dL 65-99 H BUN (test code = 3094-0) 27 mg/dL 6-24 H Creatinine (test code = 1.46 mg/dL 0.76-1.27 H 2160-0) eGFR If NonAfricn Am (test 57 mL/min/1.73 >59 L code = 33840-4) eGFR If Africn Am (test code = 66 mL/min/1.73 >59 38481-9) BUN/Creatinine Ratio (test 18 12-16 code = 3097-3) Sodium (test code = 2951-2) 140 mmol/L 134-144 Potassium (test code = 2823-3) 4.4 mmol/L 3.5-5.2 Chloride (test code = 2075-0) 106 mmol/L 96-106 Carbon Dioxide, Total (test 23 mmol/L - code = 2027-9) Calcium (test code = 54740-9) 8.7 mg/dL 8.7-10.2 Protein, Total (test code = 5.3 g/dL 6.0-8.5 L 2885-2) Albumin (test code = 1751-7) 3.0 g/dL 4.0-5.0 L Globulin, Total (test code = 2.3 g/dL 1.5-4.5 67632-1) A/G Ratio (test code = 1759-0) 1.3 [...] (test 57 mL/min/1.73 >59 L code = 32065-0) eGFR If Africn Am (test code = 66 mL/min/1.73 >59 30210-5) BUN/Creatinine Ratio (test 18 12-16 code = 3097-3) Sodium (test code = 2951-2) 140 mmol/L 134-144 Potassium (test code = 2823-3) 4.4 mmol/L 3.5-5.2 Chloride (test code = 2075-0) 106 mmol/L 96-106 Carbon Dioxide, Total (test 23 mmol/L -29 code = 8-9) Calcium (test code = 69356-3) 8.7 mg/dL 8.7-10.2 Protein, Total (test code = 5.3 g/dL 6.0-8.5 L 2885-2) Albumin (test code = 1751-7) 3.0 g/dL 4.0-5.0 L Globulin, Total (test code = 2.3 g/dL 1.5-4.5 37911-2) A/G Ratio (test code = 1759-0) 1.3 [...] (test 57 mL/min/1.73 >59 L code = 61626-7) eGFR If Africn Am (test code = 66 mL/min/1.73 >59 59742-8) BUN/Creatinine Ratio (test 18 9-20 code = 3097-3) Sodium (test code = 2951-2) 140 mmol/L 134-144 Potassium (test code = 2823-3) 4.4 mmol/L 3.5-5.2 Chloride (test code = 2075-0) 106 mmol/L 96-106 Carbon Dioxide, Total (test 23 mmol/L 20-29 code = 2028-9) Calcium (test code = 47137-1) 8.7 mg/dL 8.7-10.2 Protein, Total (test code = 5.3 g/dL 6.0-8.5 L 2885-2) Albumin (test code = 1751-7) 3.0 g/dL 4.0-5.0 L Globulin, Total (test code = 2.3 g/dL 1.5-4.5 89567-2) A/G Ratio (test code = 1759-0) 1.3 [...] (test 57 mL/min/1.73 >59 L code = 90979-0) eGFR If Africn Am (test code = 66 mL/min/1.73 >59 80073-8) BUN/Creatinine Ratio (test 18 9-20 code = 3097-3) Sodium (test code = 2951-2) 140 mmol/L 134-144 Potassium (test code = 2823-3) 4.4 mmol/L 3.5-5.2 Chloride (test code = 2075-0) 106 mmol/L 96-106 Carbon Dioxide, Total (test 23 mmol/L 20-29 code = 8-9) Calcium (test code = 03713-0) 8.7 mg/dL 8.7-10.2 Protein, Total (test code = 5.3 g/dL 6.0-8.5 L 2885-2) Albumin (test code = 1751-7) 3.0 g/dL 4.0-5.0 L Globulin, Total (test code = 2.3 g/dL 1.5-4.5 52415-2) A/G Ratio (test code = 1759-0) 1.3 [...] (test 57 mL/min/1.73 >59 L code = 55152-6) eGFR If Africn Am (test code = 66 mL/min/1.73 >59 39598-5) BUN/Creatinine Ratio (test 18 9-20 code = 3097-3) Sodium (test code = 2951-2) 140 mmol/L 134-144 Potassium (test code = 2823-3) 4.4 mmol/L 3.5-5.2 Chloride (test code = 2075-0) 106 mmol/L 96-106 Carbon Dioxide, Total (test 23 mmol/L 20-29 code = 8-9) Calcium (test code = 78345-7) 8.7 mg/dL 8.7-10.2 Protein, Total (test code = 5.3 g/dL 6.0-8.5 L 2885-2) Albumin (test code = 1751-7) 3.0 g/dL 4.0-5.0 L Globulin, Total (test code = 2.3 g/dL 1.5-4.5 41072-7) A/G Ratio (test code = 1759-0) 1.3 [...] (test 57 mL/min/1.73 >59 L code = 57462-0) eGFR If Africn Am (test code = 66 mL/min/1.73 >59 18620-2) BUN/Creatinine Ratio (test 18 9-20 code = 3097-3) Sodium (test code = 2951-2) 140 mmol/L 134-144 Potassium (test code = 2823-3) 4.4 mmol/L 3.5-5.2 Chloride (test code = 2075-0) 106 mmol/L 96-106 Carbon Dioxide, Total (test 23 mmol/L 20-29 code = 2028-9) Calcium (test code = 71961-2) 8.7 mg/dL 8.7-10.2 Protein, Total (test code = 5.3 g/dL 6.0-8.5 L 2885-2) Albumin (test code = 1751-7) 3.0 g/dL 4.0-5.0 L Globulin, Total (test code = 2.3 g/dL 1.5-4.5 68566-8) A/G Ratio (test code = 1759-0) 1.3 [...] (test 57 mL/min/1.73 >59 L code = 70262-3) eGFR If Africn Am (test code = 66 mL/min/1.73 >59 75554-8) BUN/Creatinine Ratio (test 18 9-20 code = 3097-3) Sodium (test code = 2951-2) 140 mmol/L 134-144 Potassium (test code = 2823-3) 4.4 mmol/L 3.5-5.2 Chloride (test code = 2075-0) 106 mmol/L 96-106 Carbon Dioxide, Total (test 23 mmol/L 20-29 code = 2028-9) Calcium (test code = 00065-6) 8.7 mg/dL 8.7-10.2 Protein, Total (test code = 5.3 g/dL 6.0-8.5 L 2885-2) Albumin (test code = 1751-7) 3.0 g/dL 4.0-5.0 L Globulin, Total (test code = 2.3 g/dL 1.5-4.5 43042-7) A/G Ratio (test code = 1759-0) 1.3 [...] (test 57 mL/min/1.73 >59 L code = 35966-1) eGFR If Africn Am (test code = 66 mL/min/1.73 >59 72138-8) BUN/Creatinine Ratio (test 12-16 code = 3097-3) Sodium (test code = 2951-2) 140 mmol/L 134-144 Potassium (test code = 2823-3) 4.4 mmol/L 3.5-5.2 Chloride (test code = 2075-0) 106 mmol/L 96-106 Carbon Dioxide, Total (test 23 mmol/L 20-29 code = 2028-9) Calcium (test code = 92801-3) 8.7 mg/dL 8.7-10.2 Protein, Total (test code = 5.3 g/dL 6.0-8.5 L 2885-2) Albumin (test code = 1751-7) 3.0 g/dL 4.0-5.0 L Globulin, Total (test code = 2.3 g/dL 1.5-4.5 11993-8) A/G Ratio (test code = 1759-0) 1.3 1.2-2.2 Bilirubin, Total (test code = 0.5 mg/dL 0.0-1.2 1975-2) Alkaline Phosphatase (test 95 IU/L 39-117 code = 6768-6) AST (SGOT) (test code = 16 IU/L 0-40 1920-8) ALT (SGPT) (test code = 23 IU/L 0-44 1742-6) [facility] Description: Comp. Metabolic Panel (142019-07-04 01:03:00 Test Item Value Reference Range Interpretation Comments Glucose (test code = 2345-7) 262 mg/dL 65-99 H BUN (test code = 3094-0) 27 mg/dL 6-24 H Creatinine (test code = 1.46 mg/dL 0.76-1.27 H 2160-0) eGFR If NonAfricn Am (test 57 mL/min/1.73 >59 L code = 91338-0) eGFR If Africn Am (test code = 66 mL/min/1.73 >59 39608-3) BUN/Creatinine Ratio (test 18 12-16 code = 3097-3) Sodium (test code = 2951-2) 140 mmol/L 134-144 Potassium (test code = 2823-3) 4.4 mmol/L 3.5-5.2 Chloride (test code = 2075-0) 106 mmol/L 96-106 Carbon Dioxide, Total (test 23 mmol/L - code = 2027-) Calcium (test code = 31306-0) 8.7 mg/dL 8.7-10.2 Protein, Total (test code = 5.3 g/dL 6.0-8.5 L 2885-2) Albumin (test code = 1751-7) 3.0 g/dL 4.0-5.0 L Globulin, Total (test code = 2.3 g/dL 1.5-4.5 44076-1) A/G Ratio (test code = 1759-0) 1.3 [...] (test 57 mL/min/1.73 >59 L code = 06443-1) eGFR If Africn Am (test code = 66 mL/min/1.73 >59 04799-3) BUN/Creatinine Ratio (test 18 -20 code = 3097-3) Sodium (test code = 2951-2) 140 mmol/L 134-144 Potassium (test code = 2823-3) 4.4 mmol/L 3.5-5.2 Chloride (test code = 2075-0) 106 mmol/L 96-106 Carbon Dioxide, Total (test 23 mmol/L -29 code = 2027-9) Calcium (test code = 28809-3) 8.7 mg/dL 8.7-10.2 Protein, Total (test code = 5.3 g/dL 6.0-8.5 L 2885-2) Albumin (test code = 1751-7) 3.0 g/dL 4.0-5.0 L Globulin, Total (test code = 2.3 g/dL 1.5-4.5 62872-5) A/G Ratio (test code = 1759-0) 1.3 [...] (test 57 mL/min/1.73 >59 L code = 57357-8) eGFR If Africn Am (test code = 66 mL/min/1.73 >59 78435-9) BUN/Creatinine Ratio (test 18 9-20 code = 3097-3) Sodium (test code = 2951-2) 140 mmol/L 134-144 Potassium (test code = 2823-3) 4.4 mmol/L 3.5-5.2 Chloride (test code = 2075-0) 106 mmol/L 96-106 Carbon Dioxide, Total (test 23 mmol/L 20-29 code = 8-9) Calcium (test code = 45305-9) 8.7 mg/dL 8.7-10.2 Protein, Total (test code = 5.3 g/dL 6.0-8.5 L 2885-2) Albumin (test code = 1751-7) 3.0 g/dL 4.0-5.0 L Globulin, Total (test code = 2.3 g/dL 1.5-4.5 91319-0) A/G Ratio (test code = 1759-0) 1.3 1.2-2.2 Bilirubin, Total (test code = 0.5 mg/dL 0.0-1.2 1975-2) Alkaline Phosphatase (test 95 IU/L 39-117 code = 6768-6) AST (SGOT) (test code = 16 IU/L 0-40 1920-8) ALT (SGPT) (test code = 23 IU/L 0-44 1742-6) [facility] Description: Hemoglobin A1c/Hemoglobin.total in Blood 2019-04-05 09:29:00 Test Item Value Reference Range Interpretation Comments Hemoglobin A1c (test code 9.9 % 4.8-5.6 H = 4548-4) . Prediabetes: 5. 7 - 6.4 Diabetes : >6.4 Glycemic control for adults with diabetes: <7.0

P erformed by:
[facility] ()

[facility] Description: Hemoglobin A1c/Hemoglobin.total in Blood 2019-04-05 09:29:00 Test Item Value Reference Range Interpretation Comments Hemoglobin A1c (test code 9.9 % 4.8-5.6 H = 4548-4) . Prediabetes: 5. 7 - 6.4 Diabetes : >6.4 Glycemic control for adults with diabetes: <7.0

P erformed by:
[facility] ()

[facility] Description: Hemoglobin A1c/Hemoglobin.total in Blood 2019-04-05 09:29:00 Test Item Value Reference Range Interpretation Comments Hemoglobin A1c (test code 9.9 % 4.8-5.6 H = 4548-4) . Prediabetes: 5. 7 - 6.4 Diabetes : >6.4 Glycemic control for adults with diabetes: <7.0

P erformed by:
[facility] ()

[facility] Description: Hemoglobin A1c/Hemoglobin.total in Blood 2019-04-05 09:29:00 [...] with diabetes: <7.0

P erformed by:
[facility] ([place])

[facility] Description: Hemoglobin A1c/Hemoglobin.total in [...] with diabetes: <7.0

P erformed by:
[facility] ()

[facility] Description: Hemoglobin A1c/Hemoglobin.total in [...] with diabetes: <7.0

P erformed by:
[facility] ()

[facility] Description: Hemoglobin A1c/Hemoglobin.total in [...] by:
[facility] ([place])

[facility] Description: Hemoglobin A1c/Hemoglobin.total in Blood 2019-04-05 09:29:00 Test Item Value Reference Range Interpretation Comments Hemoglobin A1c (test code 9.9 % 4.8-5.6 H = 4548-4) . Prediabetes: 5. 7 - 6.4 Diabetes : >6.4 Glycemic control for adults with diabetes: <7.0

P erformed by:
[facility] ([place])

[facility] Description: Hemoglobin A1c/Hemoglobin.total in Blood 2019-04-05 09:29:00 Test Item Value Reference Range Interpretation Comments Hemoglobin A1c (test code 9.9 % 4.8-5.6 H = 4548-4) . Prediabetes: 5. 7 - 6.4 Diabetes : >6.4 Glycemic control for adults with diabetes: <7.0

P erformed by:
[facility] ()

[facility] Description: Lipid [id number] 02:47:00 Test Item Value Reference Range Interpretation Comments Cholesterol, Total (test code = 392 mg/dL 100-199 H 2093-3) Triglycerides (test code = 2571-8) 159 mg/dL 0-149 H HDL Cholesterol (test code = 42 mg/dL >39 2085-9) VLDL Cholesterol Renuka (test code = 32 mg/dL 5-40 08716-9) LDL Cholesterol Calc (test code = 318 mg/dL 0-99 H 99912-7) Comment: (test code = 09782-6) [facility] Description: Lipid [id number] 02:47:00 Test Item Value Reference Range Interpretation Comments Cholesterol, Total (test code = 392 mg/dL 100-199 H 2093-3) Triglycerides (test code = 2571-8) 159 mg/dL 0-149 H HDL Cholesterol (test code = 42 mg/dL >39 2085-9) VLDL Cholesterol Renuka (test code = 32 mg/dL 5-40 14393-0) LDL Cholesterol Calc (test code = 318 mg/dL 0-99 H 47857-9) Comment: (test code = 55040-5) [facility] Description: Lipid [id number] 02:47:00 Test Item Value Reference Range Interpretation Comments Cholesterol, Total (test code = 392 mg/dL 100-199 H 2093-3) Triglycerides (test code = 2571-8) 159 mg/dL 0-149 H HDL Cholesterol (test code = 42 mg/dL >39 2085-9) VLDL Cholesterol Renuka (test code = 32 mg/dL 5-40 51849-1) LDL Cholesterol Calc (test code = 318 mg/dL 0-99 H 46824-9) Comment: (test code = 60754-2) [facility] Description: Lipid [id number] 02:47:00 Test Item Value Reference Range Interpretation Comments Cholesterol, Total (test code = 392 mg/dL 100-199 H 2093-3) Triglycerides (test code = 2571-8) 159 mg/dL 0-149 H HDL Cholesterol (test code = 42 mg/dL >39 2085-9) VLDL Cholesterol Renuka (test code = 32 mg/dL 5-40 84990-3) LDL Cholesterol Calc (test code = 318 mg/dL 0-99 H 76946-4) Comment: (test code = 94328-3) [facility] Description: Lipid [id number] 02:47:00 Test Item Value Reference Range Interpretation Comments Cholesterol, Total (test code = 392 mg/dL 100-199 H 2093-3) Triglycerides (test code = 2571-8) 159 mg/dL 0-149 H HDL Cholesterol (test code = 42 mg/dL >39 2085-9) VLDL Cholesterol Renuka (test code = 32 mg/dL 5-40 28277-9) LDL Cholesterol Calc (test code = 318 mg/dL 0-99 H 15130-6) Comment: (test code = 42803-2) [facility] Description: Lipid [id number] 02:47:00 Test Item Value Reference Range Interpretation Comments Cholesterol, Total (test code = 392 mg/dL 100-199 H 2093-3) Triglycerides (test code = 2571-8) 159 mg/dL 0-149 H HDL Cholesterol (test code = 42 mg/dL >39 2085-9) VLDL Cholesterol Renuka (test code = 32 mg/dL 5-40 09319-1) LDL Cholesterol Calc (test code = 318 mg/dL 0-99 H 48878-8) Comment: (test code = 95241-8) [facility] Description: Lipid [id number] 02:47:00 Test Item Value Reference Range Interpretation Comments Cholesterol, Total (test code = 392 mg/dL 100-199 H 2093-3) Triglycerides (test code = 2571-8) 159 mg/dL 0-149 H HDL Cholesterol (test code = 42 mg/dL >39 2085-9) VLDL Cholesterol Renuka (test code = 32 mg/dL 5-40 21109-4) LDL Cholesterol Calc (test code = 318 mg/dL 0-99 H 60768-5) Comment: (test code = 55504-9) [facility] Description: Lipid [id number] 02:47:00 Test Item Value Reference Range Interpretation Comments Cholesterol, Total (test code = 392 mg/dL 100-199 H 2093-3) Triglycerides (test code = 2571-8) 159 mg/dL 0-149 H HDL Cholesterol (test code = 42 mg/dL >39 2085-9) VLDL Cholesterol Renuka (test code = 32 mg/dL 5-40 08911-4) LDL Cholesterol Calc (test code = 318 mg/dL 0-99 H 99119-4) Comment: (test code = 32360-5) [facility] Description: Lipid [id number] 02:47:00 Test Item Value Reference Range Interpretation Comments Cholesterol, Total (test code = 392 mg/dL 100-199 H 2093-3) Triglycerides (test code = 2571-8) 159 mg/dL 0-149 H HDL Cholesterol (test code = 42 mg/dL >39 2085-9) VLDL Cholesterol Renuka (test code = 32 mg/dL 5-40 57261-5) LDL Cholesterol Calc (test code = 318 mg/dL 0-99 H 78588-8) Comment: (test code = 14039-1) [facility] Description: Lipid [id number] 02:47:00 Test Item Value Reference Range Interpretation Comments Cholesterol, Total (test code = 392 mg/dL 100-199 H 2093-3) Triglycerides (test code = 2571-8) 159 mg/dL 0-149 H HDL Cholesterol (test code = 42 mg/dL >39 2085-9) VLDL Cholesterol Renuka (test code = 32 mg/dL 5-40 13442-6) LDL Cholesterol Calc (test code = 318 mg/dL 0-99 H 96975-9) Comment: (test code = 63525-4) [facility] Description: Lipid [id number] 02:47:00 Test Item Value Reference Range Interpretation Comments Cholesterol, Total (test code = 392 mg/dL 100-199 H 2093-3) Triglycerides (test code = 2571-8) 159 mg/dL 0-149 H HDL Cholesterol (test code = 42 mg/dL >39 2085-9) VLDL Cholesterol Renuka (test code = 32 mg/dL 5-40 22248-9) LDL Cholesterol Calc (test code = 318 mg/dL 0-99 H 55053-7) Comment: (test code = 04421-6) [facility] Description: Lipid [id number] 02:47:00 Test Item Value Reference Range Interpretation Comments Cholesterol, Total (test code = 392 mg/dL 100-199 H 2093-3) Triglycerides (test code = 2571-8) 159 mg/dL 0-149 H HDL Cholesterol (test code = 42 mg/dL >39 2085-9) VLDL Cholesterol Renuka (test code = 32 mg/dL 5-40 91593-1) LDL Cholesterol Calc (test code = 318 mg/dL 0-99 H 75282-4) Comment: (test code = 25513-3) [facility] Description: Lipid [id number] 02:47:00 Test Item Value Reference Range Interpretation Comments Cholesterol, Total (test code = 392 mg/dL 100-199 H 2093-3) Triglycerides (test code = 2571-8) 159 mg/dL 0-149 H HDL Cholesterol (test code = 42 mg/dL >39 2085-9) VLDL Cholesterol Renuka (test code = 32 mg/dL 5-40 98019-9) LDL Cholesterol Calc (test code = 318 mg/dL 0-99 H 95272-3) Comment: (test code = 46429-6) [facility] Description: Lipid [id number] 02:47:00 Test Item Value Reference Range Interpretation Comments Cholesterol, Total (test code = 392 mg/dL 100-199 H 2093-3) Triglycerides (test code = 2571-8) 159 mg/dL 0-149 H HDL Cholesterol (test code = 42 mg/dL >39 2085-9) VLDL Cholesterol Renuka (test code = 32 mg/dL 5-40 00998-7) LDL Cholesterol Calc (test code = 318 mg/dL 0-99 H 03477-7) Comment: (test code = 06109-0) [facility] Description: Lipid [id number] 02:47:00 Test Item Value Reference Range Interpretation Comments Cholesterol, Total (test code = 392 mg/dL 100-199 H 2093-3) Triglycerides (test code = 2571-8) 159 mg/dL 0-149 H HDL Cholesterol (test code = 42 mg/dL >39 2085-9) VLDL Cholesterol Renuka (test code = 32 mg/dL 5-40 58619-3) LDL Cholesterol Calc (test code = 318 mg/dL 0-99 H 04840-9) Comment: (test code = 27543-7) [facility] Description: Lipid [id number] 02:47:00 Test Item Value Reference Range Interpretation Comments Cholesterol, Total (test code = 392 mg/dL 100-199 H 2093-3) Triglycerides (test code = 2571-8) 159 mg/dL 0-149 H HDL Cholesterol (test code = 42 mg/dL >39 2085-9) VLDL Cholesterol Renuka (test code = 32 mg/dL 5-40 20680-4) LDL Cholesterol Calc (test code = 318 mg/dL 0-99 H 87200-5) Comment: (test code = 11969-0) [facility] Description: Lipid [id number] 02:47:00 Test Item Value Reference Range Interpretation Comments Cholesterol, Total (test code = 392 mg/dL 100-199 H 2093-3) Triglycerides (test code = 2571-8) 159 mg/dL 0-149 H HDL Cholesterol (test code = 42 mg/dL >39 2085-9) VLDL Cholesterol Renuka (test code = 32 mg/dL 5-40 96530-4) LDL Cholesterol Calc (test code = 318 mg/dL 0-99 H 10653-4) Comment: (test code = 15144-4) [facility] Description: Lipid [id number] 02:47:00 Test Item Value Reference Range Interpretation Comments Cholesterol, Total (test code = 392 mg/dL 100-199 H 2093-3) Triglycerides (test code = 2571-8) 159 mg/dL 0-149 H HDL Cholesterol (test code = 42 mg/dL >39 2085-9) VLDL Cholesterol Renuka (test code = 32 mg/dL 5-40 08398-2) LDL Cholesterol Calc (test code = 318 mg/dL 0-99 H 78021-6) Comment: (test code = 51406-7) [facility] Description: Lipid [id number] 02:47:00 Test Item Value Reference Range Interpretation Comments Cholesterol, Total (test code = 392 mg/dL 100-199 H 2093-3) Triglycerides (test code = 2571-8) 159 mg/dL 0-149 H HDL Cholesterol (test code = 42 mg/dL >39 2085-9) VLDL Cholesterol Renuka (test code = 32 mg/dL 5-40 43470-0) LDL Cholesterol Calc (test code = 318 mg/dL 0-99 H 89082-8) Comment: (test code = 21502-9) [facility] Description: Lipid [id number] 02:47:00 Test Item Value Reference Range Interpretation Comments Cholesterol, Total (test code = 392 mg/dL 100-199 H 2093-3) Triglycerides (test code = 2571-8) 159 mg/dL 0-149 H HDL Cholesterol (test code = 42 mg/dL >39 2085-9) VLDL Cholesterol Renuka (test code = 32 mg/dL 5-40 76319-5) LDL Cholesterol Calc (test code = 318 mg/dL 0-99 H 82251-9) Comment: (test code = 39369-5) [facility] Description: Lipid [id number] 02:47:00 Test Item Value Reference Range Interpretation Comments Cholesterol, Total (test code = 392 mg/dL 100-199 H 2093-3) Triglycerides (test code = 2571-8) 159 mg/dL 0-149 H HDL Cholesterol (test code = 42 mg/dL >39 2085-9) VLDL Cholesterol Renuka (test code = 32 mg/dL 5-40 78753-3) LDL Cholesterol Calc (test code = 318 mg/dL 0-99 H 85687-9) Comment: (test code = 91710-5) [facility] Description: Lipid [id number] 02:47:00 Test Item Value Reference Range Interpretation Comments Cholesterol, Total (test code = 392 mg/dL 100-199 H 2093-3) Triglycerides (test code = 2571-8) 159 mg/dL 0-149 H HDL Cholesterol (test code = 42 mg/dL >39 2085-9) VLDL Cholesterol Renuka (test code = 32 mg/dL 5-40 30618-4) LDL Cholesterol Calc (test code = 318 mg/dL 0-99 H 62730-7) Comment: (test code = 56833-8) [facility] Description: Lipid [id number] 02:47:00 Test Item Value Reference Range Interpretation Comments Cholesterol, Total (test code = 392 mg/dL 100-199 H 2093-3) Triglycerides (test code = 2571-8) 159 mg/dL 0-149 H HDL Cholesterol (test code = 42 mg/dL >39 2085-9) VLDL Cholesterol Renuka (test code = 32 mg/dL 5-40 74470-8) LDL Cholesterol Calc (test code = 318 mg/dL 0-99 H 47373-0) Comment: (test code = 28336-3) [facility] Description: Lipid [id number] 02:47:00 Test Item Value Reference Range Interpretation Comments Cholesterol, Total (test code = 392 mg/dL 100-199 H 2093-3) Triglycerides (test code = 2571-8) 159 mg/dL 0-149 H HDL Cholesterol (test code = 42 mg/dL >39 2085-9) VLDL Cholesterol Renuka (test code = 32 mg/dL 5-40 39360-6) LDL Cholesterol Calc (test code = 318 mg/dL 0-99 H 48083-8) Comment: (test code = 61533-4) [facility] Description: Lipid [id number] 02:47:00 Test Item Value Reference Range Interpretation Comments Cholesterol, Total (test code = 392 mg/dL 100-199 H 2093-3) Triglycerides (test code = 2571-8) 159 mg/dL 0-149 H HDL Cholesterol (test code = 42 mg/dL >39 2085-9) VLDL Cholesterol Renuka (test code = 32 mg/dL 5-40 36596-4) LDL Cholesterol Calc (test code = 318 mg/dL 0-99 H 77884-9) Comment: (test code = 68803-8) [facility] Description: Lipid [id number] 02:47:00 Test Item Value Reference Range Interpretation Comments Cholesterol, Total (test code = 392 mg/dL 100-199 H 2093-3) Triglycerides (test code = 2571-8) 159 mg/dL 0-149 H HDL Cholesterol (test code = 42 mg/dL >39 2085-9) VLDL Cholesterol Renuka (test code = 32 mg/dL 5-40 28327-2) LDL Cholesterol Calc (test code = 318 mg/dL 0-99 H 32097-6) Comment: (test code = 37032-1) [facility] Description: Lipid [id number] 02:47:00 Test Item Value Reference Range Interpretation Comments Cholesterol, Total (test code = 392 mg/dL 100-199 H 2093-3) Triglycerides (test code = 2571-8) 159 mg/dL 0-149 H HDL Cholesterol (test code = 42 mg/dL >39 2085-9) VLDL Cholesterol Renuka (test code = 32 mg/dL 5-40 59948-1) LDL Cholesterol Calc (test code = 318 mg/dL 0-99 H 16249-7) Comment: (test code = 27983-6) [facility] Description: Comp. Metabolic Panel (14)2019-04-05 02:37:00 Test Item Value Reference Range Interpretation Comments Glucose (test code = 219 mg/dL 65-99 H 2345-7) BUN (test code = 44 mg/dL 6-24 H 3094-0) Creatinine (test code 1.51 mg/dL 0.76-1.27 H = 2160-0) eGFR If NonAfricn Am 55 mL/min/1.73 >59 L (test code = 42743-5) eGFR If Africn Am 64 mL/min/1.73 >59 (test code = 83574-5) BUN/Creatinine Ratio 29 9-20 H (test code = 3097-3) Sodium (test code = 139 mmol/L 910-242 4911-2) Potassium (test code 4.4 mmol/L 3.5-5.2 = 2823-3) Chloride (test code = 99 mmol/L 96-106 2075-0) Carbon Dioxide, Total 28 mmol/L 20-29 (test code = 2027-) Calcium (test code = 8.9 mg/dL 8.7-10.2 29052-6) Protein, Total (test 6.1 g/dL 6.0-8.5 code [...] - 4.6

Pe rfo rmed by:
[facility] ()

Globulin, Total (test 2.8 g/dL 1.5-4.5 code = 65812-1) A/G Ratio (test code 1.2 1.2-2.2 = [...] 55 mL/min/1.73 >59 L (test code = 25335-4) eGFR If Africn Am 64 mL/min/1.73 >59 (test code = 04612-9) BUN/Creatinine Ratio 29 9-20 H (test code = 3097-3) Sodium (test code = 139 mmol/L 488-974 3915-2) Potassium (test code 4.4 mmol/L 3.5-5.2 = 2823-3) Chloride (test code = 99 mmol/L 96-106 2075-0) Carbon Dioxide, Total 28 mmol/L 20-29 (test code = 8-9) Calcium (test code = 8.9 mg/dL 8.7-10.2 72222-7) Protein, Total (test 6.1 g/dL 6.0-8.5 code [...] Total (test 2.8 g/dL 1.5-4.5 code = 61748-2) A/G Ratio (test code 1.2 1.2-2.2 = 1759-0) Bilirubin, Total 0.5 mg/dL 0.0-1.2 (test code = 1974-2) Alkaline Phosphatase 100 IU/L 39-117 (test code = 6768-6) AST (SGOT) (test code 22 IU/L 0-40 = 1920-8) ALT (SGPT) (test code 27 IU/L 0-44 = 1742-6) [facility] Description: Comp. Metabolic Panel (14)2019-04-05 02:37:00 Test Item Value Reference Range Interpretation Comments Glucose (test code = 219 mg/dL 65-99 H 2345-7) BUN (test code = 44 mg/dL 6-24 H 3094-0) Creatinine (test code 1.51 mg/dL 0.76-1.27 H = 2160-0) eGFR If NonAfricn Am 55 mL/min/1.73 >59 L (test code = 43680-6) eGFR If Africn Am 64 mL/min/1.73 >59 (test code = 39000-9) BUN/Creatinine Ratio 29 9-20 H (test code = 3097-3) Sodium (test code = 139 mmol/L 124-810 5043-2) Potassium (test code 4.4 mmol/L 3.5-5.2 = 2823-3) Chloride (test code = 99 mmol/L 96-106 2075-0) Carbon Dioxide, Total 28 mmol/L 20-29 (test code = 2027-9) Calcium (test code = 8.9 mg/dL 8.7-10.2 77982-5) Protein, Total (test 6.1 g/dL 6.0-8.5 code [...] - 4.6

Pe rfo rmed by:
[facility] [place] ()

Globulin, Total (test 2.8 g/dL 1.5-4.5 code = 17688-0) A/G Ratio (test code 1.2 1.2-2.2 = [...] 55 mL/min/1.73 >59 L (test code = 31763-4) eGFR If Africn Am 64 mL/min/1.73 >59 (test code = 50945-4) BUN/Creatinine Ratio 29 9-20 H (test code = 3097-3) Sodium (test code = 139 mmol/L 609-829 0855-2) Potassium (test code 4.4 mmol/L 3.5-5.2 = 2823-3) Chloride (test code = 99 mmol/L 96-106 2075-0) Carbon Dioxide, Total 28 mmol/L 20-29 (test code = 2027-9) Calcium (test code = 8.9 mg/dL 8.7-10.2 53874-3) Protein, Total (test 6.1 g/dL 6.0-8.5 code [...] Total (test 2.8 g/dL 1.5-4.5 code = 72053-1) A/G Ratio (test code 1.2 1.2-2.2 = 1759-0) Bilirubin, Total 0.5 mg/dL 0.0-1.2 (test code = 1974-2) Alkaline Phosphatase 100 IU/L 39-117 (test code = 6768-6) AST (SGOT) (test code 22 IU/L 0-40 = 1920-8) ALT (SGPT) (test code 27 IU/L 0-44 = 1742-6) [facility] Description: Comp. Metabolic Panel (14)2019-04-05 02:37:00 Test Item Value Reference Range Interpretation Comments Glucose (test code = 219 mg/dL 65-99 H 2345-7) BUN (test code = 44 mg/dL 6-24 H 3094-0) Creatinine (test code 1.51 mg/dL 0.76-1.27 H = 2160-0) eGFR If NonAfricn Am 55 mL/min/1.73 >59 L (test code = 68158-1) eGFR If Africn Am 64 mL/min/1.73 >59 (test code = 38136-6) BUN/Creatinine Ratio 29 9-20 H (test code = 3097-3) Sodium (test code = 139 mmol/L 439-552 4228-2) Potassium (test code 4.4 mmol/L 3.5-5.2 = 2823-3) Chloride (test code = 99 mmol/L 96-106 2075-0) Carbon Dioxide, Total 28 mmol/L 20-29 (test code = 2027-9) Calcium (test code = 8.9 mg/dL 8.7-10.2 96795-7) Protein, Total (test 6.1 g/dL 6.0-8.5 code [...] - 4.6

Pe rfo rmed by:
[facility] [place] ([place])

Globulin, Total (test 2.8 g/dL 1.5-4.5 code = 08678-2) A/G Ratio (test code 1.2 1.2-2.2 = 1759-0) Bilirubin, Total 0.5 mg/dL 0.0-1.2 (test code = 1975-2) Alkaline Phosphatase 100 IU/L 39-117 (test code = 6768-6) AST (SGOT) (test code 22 IU/L 0-40 = 1920-8) ALT (SGPT) (test code 27 IU/L 0-44 = 1742-6) [facility] Description: Comp. Metabolic Panel (142019-04-05 02:37:00 Test Item Value Reference Range Interpretation Comments Glucose (test code = 219 mg/dL 65-99 H 2345-7) BUN (test code = 44 mg/dL 6-24 H 3094-0) Creatinine (test code 1.51 mg/dL 0.76-1.27 H = 2160-0) eGFR If NonAfricn Am 55 mL/min/1.73 >59 L (test code = 49943-5) eGFR If Africn Am 64 mL/min/1.73 >59 (test code = 27642-8) BUN/Creatinine Ratio 29 9-20 H (test code = 3097-3) Sodium (test code = 139 mmol/L 397-275 8339-2) Potassium (test code 4.4 mmol/L 3.5-5.2 = 2823-3) Chloride (test code = 99 mmol/L 96-106 2075-0) Carbon Dioxide, Total 28 mmol/L 20-29 (test code = 8-9) Calcium (test code = 8.9 mg/dL 8.7-10.2 64286-2) Protein, Total (test 6.1 g/dL 6.0-8.5 code [...] - 4.6

Pe rfo rmed by:
[facility] [place] ([place])

Globulin, Total (test 2.8 g/dL 1.5-4.5 code = 59845-2) A/G Ratio (test code 1.2 1.2-2.2 = 1759-0) Bilirubin, Total 0.5 mg/dL 0.0-1.2 (test code = 1975-2) Alkaline Phosphatase 100 IU/L 39-117 (test code = 6768-6) AST (SGOT) (test code 22 IU/L 0-40 = 1920-8) ALT (SGPT) (test code 27 IU/L 0-44 = 1742-6) [facility] Description: Comp. Metabolic Panel (142019-04-05 02:37:00 Test Item Value Reference Range Interpretation Comments Glucose (test code = 219 mg/dL 65-99 H 2345-7) BUN (test code = 44 mg/dL 6-24 H 3094-0) Creatinine (test code 1.51 mg/dL 0.76-1.27 H = 2160-0) eGFR If NonAfricn Am 55 mL/min/1.73 >59 L (test code = 22866-8) eGFR If Africn Am 64 mL/min/1.73 >59 (test code = 50423-3) BUN/Creatinine Ratio 29 9-20 H (test code = 3097-3) Sodium (test code = 139 mmol/L 756-465 0734-2) Potassium (test code 4.4 mmol/L 3.5-5.2 = 2823-3) Chloride (test code = 99 mmol/L 96-106 2075-0) Carbon Dioxide, Total 28 mmol/L 20-29 (test code = 2027-9) Calcium (test code = 8.9 mg/dL 8.7-10.2 06465-4) Protein, Total (test 6.1 g/dL 6.0-8.5 code [...] - 4.6

Pe rfo rmed by:
[facility] [place] ([place])

Globulin, Total (test 2.8 g/dL 1.5-4.5 code = 79796-9) A/G Ratio (test code 1.2 1.2-2.2 = [...] 55 mL/min/1.73 >59 L (test code = 33538-9) eGFR If Africn Am 64 mL/min/1.73 >59 (test code = 14368-8) BUN/Creatinine Ratio 29 9-20 H (test code = 3097-3) Sodium (test code = 139 mmol/L 231-230 8420-2) Potassium (test code 4.4 mmol/L 3.5-5.2 = 2823-3) Chloride (test code = 99 mmol/L 96-106 5-0) Carbon Dioxide, Total 28 mmol/L 20-29 (test code = 2027-9) Calcium (test code = 8.9 mg/dL 8.7-10.2 90601-8) Protein, Total (test 6.1 g/dL 6.0-8.5 code [...] Total (test 2.8 g/dL 1.5-4.5 code = 35776-8) A/G Ratio (test code 1.2 1.2-2.2 = 1759-0) Bilirubin, Total 0.5 mg/dL 0.0-1.2 (test code = 1975-2) Alkaline Phosphatase 100 IU/L 39-117 (test code = 6768-6) AST (SGOT) (test code 22 IU/L 0-40 = 1920-8) ALT (SGPT) (test code 27 IU/L 0-44 = 1742-6) [facility] Description: Comp. Metabolic Panel (14)2019-04-05 02:37:00 Test Item Value Reference Range Interpretation Comments Glucose (test code = 219 mg/dL 65-99 H 2345-7) BUN (test code = 44 mg/dL 6-24 H 3094-0) Creatinine (test code 1.51 mg/dL 0.76-1.27 H = 2160-0) eGFR If NonAfricn Am 55 mL/min/1.73 >59 L (test code = 82259-5) eGFR If Africn Am 64 mL/min/1.73 >59 (test code = 08676-0) BUN/Creatinine Ratio 29 9-20 H (test code = 3097-3) Sodium (test code = 139 mmol/L 275-368 1162-2) Potassium (test code 4.4 mmol/L 3.5-5.2 = 2823-3) Chloride (test code = 99 mmol/L 96-106 2075-0) Carbon Dioxide, Total 28 mmol/L 20-29 (test code = 2027-9) Calcium (test code = 8.9 mg/dL 8.7-10.2 85849-9) Protein, Total (test 6.1 g/dL 6.0-8.5 code [...] - 4.6

Pe rfo rmed by:
[facility] [place] ([place])

Globulin, Total (test 2.8 g/dL 1.5-4.5 code = 05333-1) A/G Ratio (test code 1.2 1.2-2.2 = 1759-0) Bilirubin, Total 0.5 mg/dL 0.0-1.2 (test code = 1975-2) Alkaline Phosphatase 100 IU/L 39-117 (test code = 6768-6) AST (SGOT) (test code 22 IU/L 0-40 = 1920-8) ALT (SGPT) (test code 27 IU/L 0-44 = 1742-6) [facility]: Comp[facility] Met[facility] (14)2019-04-05 02:37:00 Test Item Value Reference Range Interpretation Comments Glucose (test code = 219 mg/dL 65-99 H 2345-7) BUN (test code = 44 mg/dL 6-24 H 3094-0) Creatinine (test code 1.51 mg/dL 0.76-1.27 H = 2160-0) eGFR If NonAfricn Am 55 mL/min/1.73 >59 L (test code = 89096-4) eGFR If Africn Am 64 mL/min/1.73 >59 (test code = 16008-7) BUN/Creatinine Ratio 29 9-20 H (test code = 3097-3) Sodium (test code = 139 mmol/L 486-023 5364-2) Potassium (test code 4.4 mmol/L 3.5-5.2 = 2823-3) Chloride (test code = 99 mmol/L 96-106 2075-0) Carbon Dioxide, Total 28 mmol/L 20-29 (test code = 2027-9) Calcium (test code = 8.9 mg/dL 8.7-10.2 07765-8) Protein, Total (test 6.1 g/dL 6.0-8.5 code [...] - 4.6

Pe rfo rmed by:
[facility] [place] ([place])

Globulin, Total (test 2.8 g/dL 1.5-4.5 code = 14178-7) A/G Ratio (test code 1.2 1.2-2.2 = 1759-0) Bilirubin, Total 0.5 mg/dL 0.0-1.2 (test code = 1975-2) Alkaline Phosphatase 100 IU/L 39-117 (test code = 6768-6) AST (SGOT) (test code 22 IU/L 0-40 = 1920-8) ALT (SGPT) (test code 27 IU/L 0-44 = 1742-6) [facility] Description: Comp. Metabolic Panel (14)2019-04-05 02:37:00 Test Item Value Reference Range Interpretation Comments Glucose (test code = 219 mg/dL 65-99 H 2345-7) BUN (test code = 44 mg/dL 6-24 H 3094-0) Creatinine (test code 1.51 mg/dL 0.76-1.27 H = 2160-0) eGFR If NonAfricn Am 55 mL/min/1.73 >59 L (test code = 22394-0) eGFR If Africn Am 64 mL/min/1.73 >59 (test code = 98550-4) BUN/Creatinine Ratio 29 9-20 H (test code = 3097-3) Sodium (test code = 139 mmol/L 797-628 3208-2) Potassium (test code 4.4 mmol/L 3.5-5.2 = 2823-3) Chloride (test code = 99 mmol/L 96-106 2075-0) Carbon Dioxide, Total 28 mmol/L 20-29 (test code = 2027-9) Calcium (test code = 8.9 mg/dL 8.7-10.2 34627-1) Protein, Total (test 6.1 g/dL 6.0-8.5 code [...] - 4.6

Pe rfo rmed by:
[facility] [place] ([place])

Globulin, Total (test 2.8 g/dL 1.5-4.5 code = 63767-0) A/G Ratio (test code 1.2 1.2-2.2 = 1759-0) Bilirubin, Total 0.5 mg/dL 0.0-1.2 (test code = 1975-2) Alkaline Phosphatase 100 IU/L 39-117 (test code = 6768-6) AST (SGOT) (test code 22 IU/L 0-40 = 1920-8) ALT (SGPT) (test code 27 IU/L 0-44 = 1742-6) [facility] Description: Comp. Metabolic Panel (142019-04-05 02:37:00 Test Item Value Reference Range Interpretation Comments Glucose (test code = 219 mg/dL 65-99 H 2345-7) BUN (test code = 44 mg/dL 6-24 H 3094-0) Creatinine (test code 1.51 mg/dL 0.76-1.27 H = 2160-0) eGFR If NonAfricn Am 55 mL/min/1.73 >59 L (test code = 53511-1) eGFR If Africn Am 64 mL/min/1.73 >59 (test code = 63183-0) BUN/Creatinine Ratio 29 9-20 H (test code = 3097-3) Sodium (test code = 139 mmol/L 497-473 7669-2) Potassium (test code 4.4 mmol/L 3.5-5.2 = 2823-3) Chloride (test code = 99 mmol/L 96-106 2075-0) Carbon Dioxide, Total 28 mmol/L 20-29 (test code = 2027-9) Calcium (test code = 8.9 mg/dL 8.7-10.2 57587-2) Protein, Total (test 6.1 g/dL 6.0-8.5 code [...] Total (test 2.8 g/dL 1.5-4.5 code = 61717-5) A/G Ratio (test code 1.2 1.2-2.2 = 1759-0) Bilirubin, Total 0.5 mg/dL 0.0-1.2 (test code = 1975-2) Alkaline Phosphatase 100 IU/L 39-117 (test code = 6768-6) AST (SGOT) (test code 22 IU/L 0-40 = 1920-8) ALT (SGPT) (test code 27 IU/L 0-44 = 1742-6) [facility] Description: Comp. Metabolic Panel (14)2019-04-05 02:37:00 Test Item Value Reference Range Interpretation Comments Glucose (test code = 219 mg/dL 65-99 H 2345-7) BUN (test code = 44 mg/dL 6-24 H 3094-0) Creatinine (test code 1.51 mg/dL 0.76-1.27 H = 2160-0) eGFR If NonAfricn Am 55 mL/min/1.73 >59 L (test code = 91743-5) eGFR If Africn Am 64 mL/min/1.73 >59 (test code = 85379-4) BUN/Creatinine Ratio 29 9-20 H (test code = 3097-3) Sodium (test code = 139 mmol/L 124-718 0730-2) Potassium (test code 4.4 mmol/L 3.5-5.2 = 2823-3) Chloride (test code = 99 mmol/L 96-106 2075-0) Carbon Dioxide, Total 28 mmol/L 20-29 (test code = 2027-9) Calcium (test code = 8.9 mg/dL 8.7-10.2 05670-7) Protein, Total (test 6.1 g/dL 6.0-8.5 code [...] Total (test 2.8 g/dL 1.5-4.5 code = 14772-7) A/G Ratio (test code 1.2 1.2-2.2 = 1759-0) Bilirubin, Total 0.5 mg/dL 0.0-1.2 (test code = 1975-2) Alkaline Phosphatase 100 IU/L 39-117 (test code = 6768-6) AST (SGOT) (test code 22 IU/L 0-40 = 1920-8) ALT (SGPT) (test code 27 IU/L 0-44 = 1742-6) [facility] Description: Comp. Metabolic Panel (14)2019-04-05 02:37:00 Test Item Value Reference Range Interpretation Comments Glucose (test code = 219 mg/dL 65-99 H 2345-7) BUN (test code = 44 mg/dL 6-24 H 3094-0) Creatinine (test code 1.51 mg/dL 0.76-1.27 H = 2160-0) eGFR If NonAfricn Am 55 mL/min/1.73 >59 L (test code = 37287-6) eGFR If Africn Am 64 mL/min/1.73 >59 (test code = 46976-1) BUN/Creatinine Ratio 29 9-20 H (test code = 3097-3) Sodium (test code = 139 mmol/L 124-938 3225-2) Potassium (test code 4.4 mmol/L 3.5-5.2 = 2823-3) Chloride (test code = 99 mmol/L 96-106 5-0) Carbon Dioxide, Total 28 mmol/L 20-29 (test code = 2027-9) Calcium (test code = 8.9 mg/dL 8.7-10.2 32634-6) Protein, Total (test 6.1 g/dL 6.0-8.5 code [...] Total (test 2.8 g/dL 1.5-4.5 code = 53732-9) A/G Ratio (test code 1.2 1.2-2.2 = 1759-0) Bilirubin, Total 0.5 mg/dL 0.0-1.2 (test code = 1975-2) Alkaline Phosphatase 100 IU/L 39-117 (test code = 6768-6) AST (SGOT) (test code 22 IU/L 0-40 = 1920-8) ALT (SGPT) (test code 27 IU/L 0-44 = 1742-6) [facility] Description: Comp. Metabolic Panel (14)2019-04-05 02:37:00 Test Item Value Reference Range Interpretation Comments Glucose (test code = 219 mg/dL 65-99 H 2345-7) BUN (test code = 44 mg/dL 6-24 H 3094-0) Creatinine (test code 1.51 mg/dL 0.76-1.27 H = 2160-0) eGFR If NonAfricn Am 55 mL/min/1.73 >59 L (test code = 87645-5) eGFR If Africn Am 64 mL/min/1.73 >59 (test code = 76471-2) BUN/Creatinine Ratio 29 9-20 H (test code = 3097-3) Sodium (test code = 139 mmol/L 044-715 9586-2) Potassium (test code 4.4 mmol/L 3.5-5.2 = 2823-3) Chloride (test code = 99 mmol/L 96-106 2075-0) Carbon Dioxide, Total 28 mmol/L 20-29 (test code = 2027-9) Calcium (test code = 8.9 mg/dL 8.7-10.2 06179-9) Protein, Total (test 6.1 g/dL 6.0-8.5 code [...] Total (test 2.8 g/dL 1.5-4.5 code = 55003-8) A/G Ratio (test code 1.2 1.2-2.2 = 1759-0) Bilirubin, Total 0.5 mg/dL 0.0-1.2 (test code = 1975-2) Alkaline Phosphatase 100 IU/L 39-117 (test code = 6768-6) AST (SGOT) (test code 22 IU/L 0-40 = 1920-8) ALT (SGPT) (test code 27 IU/L 0-44 = 1742-6) [facility] Description: Comp. Metabolic Panel (14)2019-04-05 02:37:00 Test Item Value Reference Range Interpretation Comments Glucose (test code = 219 mg/dL 65-99 H 2345-7) BUN (test code = 44 mg/dL 6-24 H 3094-0) Creatinine (test code 1.51 mg/dL 0.76-1.27 H = 2160-0) eGFR If NonAfricn Am 55 mL/min/1.73 >59 L (test code = 85162-4) eGFR If Africn Am 64 mL/min/1.73 >59 (test code = 82621-2) BUN/Creatinine Ratio 29 9-20 H (test code = 3097-3) Sodium (test code = 139 mmol/L 713-693 5159-2) Potassium (test code 4.4 mmol/L 3.5-5.2 = 2823-3) Chloride (test code = 99 mmol/L 96-106 5-0) Carbon Dioxide, Total 28 mmol/L 20-29 (test code = 2027-9) Calcium (test code = 8.9 mg/dL 8.7-10.2 93384-9) Protein, Total (test 6.1 g/dL 6.0-8.5 code [...] - 4.6

Pe rfo rmed by:
[facility] [place] ()

Globulin, Total (test 2.8 g/dL 1.5-4.5 code = 44893-1) A/G Ratio (test code 1.2 1.2-2.2 = 1759-0) Bilirubin, Total 0.5 mg/dL 0.0-1.2 (test code = 1975-2) Alkaline Phosphatase 100 IU/L 39-117 (test code = 6768-6) AST (SGOT) (test code 22 IU/L 0-40 = 1920-8) ALT (SGPT) (test code 27 IU/L 0-44 = 1742-6) [facility] Description: Comp. Metabolic Panel (142019-04-05 02:37:00 Test Item Value Reference Range Interpretation Comments Glucose (test code = 219 mg/dL 65-99 H 2345-7) BUN (test code = 44 mg/dL 6-24 H 3094-0) Creatinine (test code 1.51 mg/dL 0.76-1.27 H = 2160-0) eGFR If NonAfricn Am 55 mL/min/1.73 >59 L (test code = 54323-1) eGFR If Africn Am 64 mL/min/1.73 >59 (test code = 17041-0) BUN/Creatinine Ratio 29 9-20 H (test code = 3097-3) Sodium (test code = 139 mmol/L 548-087 6597-2) Potassium (test code 4.4 mmol/L 3.5-5.2 = 2823-3) Chloride (test code = 99 mmol/L 96-106 2075-0) Carbon Dioxide, Total 28 mmol/L 20-29 (test code = 2027-9) Calcium (test code = 8.9 mg/dL 8.7-10.2 28443-5) Protein, Total (test 6.1 g/dL 6.0-8.5 code [...] Total (test 2.8 g/dL 1.5-4.5 code = 67449-7) A/G Ratio (test code 1.2 1.2-2.2 = 1759-0) Bilirubin, Total 0.5 mg/dL 0.0-1.2 (test code = 1975-2) Alkaline Phosphatase 100 IU/L 39-117 (test code = 6768-6) AST (SGOT) (test code 22 IU/L 0-40 = 1920-8) ALT (SGPT) (test code 27 IU/L 0-44 = 1742-6) [facility] Description: Comp. Metabolic Panel (14)2019-04-05 02:37:00 Test Item Value Reference Range Interpretation Comments Glucose (test code = 219 mg/dL 65-99 H 2345-7) BUN (test code = 44 mg/dL 6-24 H 3094-0) Creatinine (test code 1.51 mg/dL 0.76-1.27 H = 2160-0) eGFR If NonAfricn Am 55 mL/min/1.73 >59 L (test code = 42689-8) eGFR If Africn Am 64 mL/min/1.73 >59 (test code = 32331-2) BUN/Creatinine Ratio 29 9-20 H (test code = 3097-3) Sodium (test code = 139 mmol/L 249-869 7066-2) Potassium (test code 4.4 mmol/L 3.5-5.2 = 2823-3) Chloride (test code = 99 mmol/L 96-106 2074-0) Carbon Dioxide, Total 28 mmol/L 20-29 (test code = 2027-) Calcium (test code = 8.9 mg/dL 8.7-10.2 49474-1) Protein, Total (test 6.1 g/dL 6.0-8.5 code [...] Total (test 2.8 g/dL 1.5-4.5 code = 01339-5) A/G Ratio (test code 1.2 1.2-2.2 = 1759-0) Bilirubin, Total 0.5 mg/dL 0.0-1.2 (test code = 1974-2) Alkaline Phosphatase 100 IU/L 39-117 (test code = 6768-6) AST (SGOT) (test code 22 IU/L 0-40 = 1920-8) ALT (SGPT) (test code 27 IU/L 0-44 = 1742-6) [facility] Description: Comp. Metabolic Panel (14)2019-04-05 02:37:00 Test Item Value Reference Range Interpretation Comments Glucose (test code = 219 mg/dL 65-99 H 2345-7) BUN (test code = 44 mg/dL 6-24 H 3094-0) Creatinine (test code 1.51 mg/dL 0.76-1.27 H = 2160-0) eGFR If NonAfricn Am 55 mL/min/1.73 >59 L (test code = 43673-8) eGFR If Africn Am 64 mL/min/1.73 >59 (test code = 83115-7) BUN/Creatinine Ratio 29 9-20 H (test code = 3097-3) Sodium (test code = 139 mmol/L 607-235 2701-2) Potassium (test code 4.4 mmol/L 3.5-5.2 = 2823-3) Chloride (test code = 99 mmol/L 96-106 2075-0) Carbon Dioxide, Total 28 mmol/L 20-29 (test code = 2027-9) Calcium (test code = 8.9 mg/dL 8.7-10.2 22561-3) Protein, Total (test 6.1 g/dL 6.0-8.5 code [...] Total (test 2.8 g/dL 1.5-4.5 code = 08859-1) A/G Ratio (test code 1.2 1.2-2.2 = 1759-0) Bilirubin, Total 0.5 mg/dL 0.0-1.2 (test code = 1975-2) Alkaline Phosphatase 100 IU/L 39-117 (test code = 6768-6) AST (SGOT) (test code 22 IU/L 0-40 = 1920-8) ALT (SGPT) (test code 27 IU/L 0-44 = 1742-6) [facility] Description: Comp. Metabolic Panel (14)2019-04-05 02:37:00 Test Item Value Reference Range Interpretation Comments Glucose (test code = 219 mg/dL 65-99 H 2345-7) BUN (test code = 44 mg/dL 6-24 H 3094-0) Creatinine (test code 1.51 mg/dL 0.76-1.27 H = 2160-0) eGFR If NonAfricn Am 55 mL/min/1.73 >59 L (test code = 72463-4) eGFR If Africn Am 64 mL/min/1.73 >59 (test code = 73541-6) BUN/Creatinine Ratio 29 9-20 H (test code = 3097-3) Sodium (test code = 139 mmol/L 751-816 5950-2) Potassium (test code 4.4 mmol/L 3.5-5.2 = 2823-3) Chloride (test code = 99 mmol/L 96-106 2074-0) Carbon Dioxide, Total 28 mmol/L 20-29 (test code = 2027-) Calcium (test code = 8.9 mg/dL 8.7-10.2 94107-4) Protein, Total (test 6.1 g/dL 6.0-8.5 code [...] - 4.6

Pe rfo rmed by:
[facility] ()

Globulin, Total (test 2.8 g/dL 1.5-4.5 code = 89704-6) A/G Ratio (test code 1.2 1.2-2.2 = 1759-0) Bilirubin, Total 0.5 mg/dL 0.0-1.2 (test code = 1974-) Alkaline Phosphatase 100 IU/L 39-117 (test code = 6768-6) AST (SGOT) (test code 22 IU/L 0-40 = 1920-8) ALT (SGPT) (test code 27 IU/L 0-44 = 1742-6) [facility] Description: Comp. Metabolic Panel (14)2019-04-05 02:37:00 Test Item Value Reference Range Interpretation Comments Glucose (test code = 219 mg/dL 65-99 H 2345-7) BUN (test code = 44 mg/dL 6-24 H 3094-0) Creatinine (test code 1.51 mg/dL 0.76-1.27 H = 2160-0) eGFR If NonAfricn Am 55 mL/min/1.73 >59 L (test code = 46629-9) eGFR If Africn Am 64 mL/min/1.73 >59 (test code = 32156-2) BUN/Creatinine Ratio 29 9-20 H (test code = 3097-3) Sodium (test code = 139 mmol/L 726-044 5888-2) Potassium (test code 4.4 mmol/L 3.5-5.2 = 2823-3) Chloride (test code = 99 mmol/L 96-106 2075-0) Carbon Dioxide, Total 28 mmol/L 20-29 (test code = 8-9) Calcium (test code = 8.9 mg/dL 8.7-10.2 43245-6) Protein, Total (test 6.1 g/dL 6.0-8.5 code [...] - 4.6

Pe rfo rmed by:
[facility] ([place])

Globulin, Total (test 2.8 g/dL 1.5-4.5 code = 46032-1) A/G Ratio (test code 1.2 1.2-2.2 = 1759-0) Bilirubin, Total 0.5 mg/dL 0.0-1.2 (test code = 1975-2) Alkaline Phosphatase 100 IU/L 39-117 (test code = 6768-6) AST (SGOT) (test code 22 IU/L 0-40 = 1920-8) ALT (SGPT) (test code 27 IU/L 0-44 = 1742-6) [facility]: [facility] (14)2019-04-05 02:37:00 Test Item Value Reference Range Interpretation Comments Glucose (test code = 219 mg/dL 65-99 H 2345-7) BUN (test code = 44 mg/dL 6-24 H 3094-0) Creatinine (test code 1.51 mg/dL 0.76-1.27 H = 2160-0) eGFR If NonAfricn Am 55 mL/min/1.73 >59 L (test code = 83877-8) eGFR If Africn Am 64 mL/min/1.73 >59 (test code = 07145-9) BUN/Creatinine Ratio 29 9-20 H (test code = 3097-3) Sodium (test code = 139 mmol/L 374-045 1310-2) Potassium (test code 4.4 mmol/L 3.5-5.2 = 2823-3) Chloride (test code = 99 mmol/L 96-106 2075-0) Carbon Dioxide, Total 28 mmol/L 20-29 (test code = 2027-) Calcium (test code = 8.9 mg/dL 8.7-10.2 26041-9) Protein, Total (test 6.1 g/dL 6.0-8.5 code [...] - 4.6

Pe rfo rmed by:
[facility] ()

Globulin, Total (test 2.8 g/dL 1.5-4.5 code = 56541-7) A/G Ratio (test code 1.2 1.2-2.2 = [...] 55 mL/min/1.73 >59 L (test code = 51481-6) eGFR If Africn Am 64 mL/min/1.73 >59 (test code = 56235-7) BUN/Creatinine Ratio 29 9-20 H (test code = 3097-3) Sodium (test code = 139 mmol/L 309-979 0086-2) Potassium (test code 4.4 mmol/L 3.5-5.2 = 2823-3) Chloride (test code = 99 mmol/L 96-106 2075-0) Carbon Dioxide, Total 28 mmol/L 20-29 (test code = 8-9) Calcium (test code = 8.9 mg/dL 8.7-10.2 23209-3) Protein, Total (test 6.1 g/dL 6.0-8.5 code [...] - 4.6

Pe rfo rmed by:
[facility] ([place])

Globulin, Total (test 2.8 g/dL 1.5-4.5 code = 38118-4) A/G Ratio (test code 1.2 1.2-2.2 = [...] 55 mL/min/1.73 >59 L (test code = 51401-0) eGFR If Africn Am 64 mL/min/1.73 >59 (test code = 83937-7) BUN/Creatinine Ratio 29 9-20 H (test code = 3097-3) Sodium (test code = 139 mmol/L 875-471 7844-2) Potassium (test code 4.4 mmol/L 3.5-5.2 = 2823-3) Chloride (test code = 99 mmol/L 96-106 2075-0) Carbon Dioxide, Total 28 mmol/L 20-29 (test code = 2027-9) Calcium (test code = 8.9 mg/dL 8.7-10.2 08316-3) Protein, Total (test 6.1 g/dL 6.0-8.5 code [...] Total (test 2.8 g/dL 1.5-4.5 code = 43364-3) A/G Ratio (test code 1.2 1.2-2.2 = [...] 55 mL/min/1.73 >59 L (test code = 55734-1) eGFR If Africn Am 64 mL/min/1.73 >59 (test code = 88700-0) BUN/Creatinine Ratio 29 9-20 H (test code = 3097-3) Sodium (test code = 139 mmol/L 025-215 5960-2) Potassium (test code 4.4 mmol/L 3.5-5.2 = 2823-3) Chloride (test code = 99 mmol/L 96-106 2075-0) Carbon Dioxide, Total 28 mmol/L 20-29 (test code = 2027-9) Calcium (test code = 8.9 mg/dL 8.7-10.2 45161-6) Protein, Total (test 6.1 g/dL 6.0-8.5 code [...] - 4.6

Pe rfo rmed by:
[facility] ([place])

Globulin, Total (test 2.8 g/dL 1.5-4.5 code = 05599-4) A/G Ratio (test code 1.2 1.2-2.2 = 1759-0) Bilirubin, Total 0.5 mg/dL 0.0-1.2 (test code = 1974-2) Alkaline Phosphatase 100 IU/L 39-117 (test code = 6768-6) AST (SGOT) (test code 22 IU/L 0-40 = 1920-8) ALT (SGPT) (test code 27 IU/L 0-44 = 1742-6) [facility] Description: Comp. Metabolic Panel (14)2019-04-05 02:37:00 Test Item Value Reference Range Interpretation Comments Glucose (test code = 219 mg/dL 65-99 H 2345-7) BUN (test code = 44 mg/dL 6-24 H 3094-0) Creatinine (test code 1.51 mg/dL 0.76-1.27 H = 2160-0) eGFR If NonAfricn Am 55 mL/min/1.73 >59 L (test code = 06207-1) eGFR If Africn Am 64 mL/min/1.73 >59 (test code = 87300-1) BUN/Creatinine Ratio 29 9-20 H (test code = 3097-3) Sodium (test code = 139 mmol/L 231-460 5940-2) Potassium (test code 4.4 mmol/L 3.5-5.2 = 2823-3) Chloride (test code = 99 mmol/L 96-106 2075-0) Carbon Dioxide, Total 28 mmol/L 20-29 (test code = 2027-9) Calcium (test code = 8.9 mg/dL 8.7-10.2 67938-8) Protein, Total (test 6.1 g/dL 6.0-8.5 code [...] - 4.6

Pe rfo rmed by:
[facility] ([place])

Globulin, Total (test 2.8 g/dL 1.5-4.5 code = 43670-2) A/G Ratio (test code 1.2 1.2-2.2 = 1759-0) Bilirubin, Total 0.5 mg/dL 0.0-1.2 (test code = 1975-2) Alkaline Phosphatase 100 IU/L 39-117 (test code = 6768-6) AST (SGOT) (test code 22 IU/L 0-40 = 1920-8) ALT (SGPT) (test code 27 IU/L 0-44 = 1742-6) [facility]: [facility] (2019-04-05 02:37:00 Test Item Value Reference Range Interpretation Comments Glucose (test code = 219 mg/dL 65-99 H 2345-7) BUN (test code = 44 mg/dL 6-24 H 3094-0) Creatinine (test code 1.51 mg/dL 0.76-1.27 H = 2160-0) eGFR If NonAfricn Am 55 mL/min/1.73 >59 L (test code = 72673-7) eGFR If Africn Am 64 mL/min/1.73 >59 (test code = 64540-4) BUN/Creatinine Ratio 29 9-20 H (test code = 3097-3) Sodium (test code = 139 mmol/L 258-369 2026-2) Potassium (test code 4.4 mmol/L 3.5-5.2 = 2823-3) Chloride (test code = 99 mmol/L 96-106 2075-0) Carbon Dioxide, Total 28 mmol/L 20-29 (test code = 2027-9) Calcium (test code = 8.9 mg/dL 8.7-10.2 07622-5) Protein, Total (test 6.1 g/dL 6.0-8.5 code [...] - 4.6

Pe rfo rmed by:
[facility] ([place])

Globulin, Total (test 2.8 g/dL 1.5-4.5 code = 43194-5) A/G Ratio (test code 1.2 1.2-2.2 = 1759-0) Bilirubin, Total 0.5 mg/dL 0.0-1.2 (test code = 1975-2) Alkaline Phosphatase 100 IU/L 39-117 (test code = 6768-6) AST (SGOT) (test code 22 IU/L 0-40 = 1920-8) ALT (SGPT) (test code 27 IU/L 0-44 = 1742-6) [facility] [id number] 11:58:00 Test Item Value Reference Range Interpretation Comments STREP A ANTIGEN (BEAKER) (test code Negative = 556) POCT-GLUCOSE [id number] 22:44:00 Test Item Value Reference Range Interpretation Comments POC-GLUCOSE METER 431 mg/dL 70-110 HH TESTED AT [address] ([place]) (test code [facility] [place] = 1538) [address] POCT-GLUCOSE [id number] 22:44:00 Test Item Value Reference Range Interpretation Comments POC-GLUCOSE METER 455 mg/dL 70-110 TESTED AT [address] ([place]) (test code [facility] [place] = 1538) [address] URINALYSIS W/ REFLEX URINE [id number] 20:30:00 Test Item Value Reference Range Interpretation [...] SOURCE(BEAKER) (test code = 2795) COMPREHENSIVE METABOLIC [id number] 20:27:00 Test Item Value Reference Range Interpretation [...] S NOT APPLICABLE FOR DIALYSIS PATIEN TS. [id number] 20:27:00 Test Item Value Reference Range Interpretation Comments LIPASE (BEAKER) (test code = 749) 37 U/L 6-51 [id number] 20:23:00 Test Item Value Reference Range Interpretation [...] Information (Auto Output)CBC W/PLT COUNT & AUTO [id number] 20:11:00 Test Item Value Reference Range Interpretation [...] (BEAKER) (test code = 2801) BASIC METABOLIC [id number] 06:52:00 Test Item Value Reference Range Interpretation [...] NOT APPLICABLE FOR DIALYSIS PATIEN TS. POCT-GLUCOSE [id number] 05:58:00 Test Item Value Reference Range Interpretation Comments POC-GLUCOSE METER 222 mg/dL 70-110 H TESTED AT [address] ([place]) (test code [facility] [place] = 1538) 405[address] POCT-GLUCOSE [id number] 20:37:00 Test Item Value Reference Range Interpretation Comments POC-GLUCOSE METER 157 mg/dL 70-110 H TESTED AT [address] ([place]) (test code [facility] [place] = 1538) 36172 POCT-GLUCOSE [id number] 18:13:00 Test Item Value Reference Range Interpretation Comments POC-GLUCOSE METER 176 mg/dL 70-110 H TESTED AT [address] ([place]) (test code [facility] [place] = 1538) [address] POCT-GLUCOSE [id number] 12:16:00 Test Item Value Reference Range Interpretation Comments POC-GLUCOSE METER 161 mg/dL 70-110 H TESTED AT [address] ([place]) (test code [facility] [place] = 1538) [address] BASIC METABOLIC [id number] 07:11:00 Test Item Value Reference Range Interpretation [...] PATIEN TS. CBC W/PLT COUNT & AUTO [id number] 06:27:00 Test Item Value Reference Range Interpretation [...] PERCENT (BEAKER) (test code = 2801) POCT-GLUCOSE [id number] 06:22:00 Test Item Value Reference Range Interpretation Comments POC-GLUCOSE METER 172 mg/dL 70-110 H TESTED AT [address] ([place]) (test code [facility] [place] = 1538) 54549 POCT-GLUCOSE [id number] 20:27:00 Test Item Value Reference Range Interpretation Comments POC-GLUCOSE METER 209 mg/dL 70-110 H TESTED AT [address] ([facility]) (test code [facility] [place] = 1538) 774[address] POCT-GLUCOSE [id number] 18:12:00 Test Item Value Reference Range Interpretation Comments POC-GLUCOSE METER 192 mg/dL 70-110 H TESTED AT [address] ([place]) (test code [facility] [place] = 1538) 39290 POCT-GLUCOSE [id number] 11:20:00 Test Item Value Reference Range Interpretation Comments POC-GLUCOSE METER 192 mg/dL 70-110 H TESTED AT [address] ([place]) (test code [facility] [place] = 1538) [address] BASIC METABOLIC [id number] 07:02:00 Test Item Value Reference Range Interpretation [...] PATIEN TS. CBC W/PLT COUNT & AUTO [id number] 06:41:00 Test Item Value Reference Range Interpretation [...] PERCENT (BEAKER) (test code = 2801) POCT-GLUCOSE [id number] 06:13:00 Test Item Value Reference Range Interpretation Comments POC-GLUCOSE METER 134 mg/dL 70-110 H TESTED AT [address] ([place]) (test code [facility] [place] = 1538) 013[address] POCT-GLUCOSE [id number] 21:38:00 Test Item Value Reference Range Interpretation Comments POC-GLUCOSE METER 114 mg/dL 70-110 H TESTED AT [address] ([place]) (test code [facility] [place] = 1538) 33976 POCT-GLUCOSE [id number] 16:58:00 Test Item Value Reference Range Interpretation Comments POC-GLUCOSE METER 294 mg/dL 70-110 H TESTED AT [address] ([place]) (test code [facility] [place] = 1538) 23673 POCT-GLUCOSE [id number] 12:03:00 Test Item Value Reference Range Interpretation Comments POC-GLUCOSE METER 157 mg/dL 70-110 H TESTED AT [address] ([place]) (test code [facility] [place] = 1538) 30078 POCT-GLUCOSE [id number] 06:50:00 Test Item Value Reference Range Interpretation Comments POC-GLUCOSE METER 167 mg/dL 70-110 H TESTED AT [address] ([place]) (test code [facility] [place] = 1538) [address] BASIC METABOLIC [id number] 05:07:00 Test Item Value Reference Range Interpretation [...] S NOT APPLICABLE FOR DIALYSIS PATIEN TS. [id number] 05:01:00 Test Item Value Reference Range Interpretation Comments MAGNESIUM (BEAKER) (test code = 2.0 mg/dL 1.5-3.0 627) CBC W/PLT COUNT & AUTO [id number] 04:43:00 Test Item Value Reference Range Interpretation [...] PERCENT (BEAKER) (test code = 2801) POCT-GLUCOSE [id number] 20:37:00 Test Item Value Reference Range Interpretation Comments POC-GLUCOSE METER 212 mg/dL 70-110 H TESTED AT [address] ([place]) (test code [facility] [place] = 1538) 65140 POCT-GLUCOSE [id number] 17:03:00 Test Item Value Reference Range Interpretation Comments POC-GLUCOSE METER 176 mg/dL 70-110 H TESTED AT [address] ([place]) (test code [facility] [place] = 1538) 63188 POCT-GLUCOSE [id number] 12:05:00 Test Item Value Reference Range Interpretation Comments POC-GLUCOSE METER 169 mg/dL 70-110 H TESTED AT [address] ([place]) (test code [facility] [place] = 1538) 34574 POCT-GLUCOSE [id number] 09:25:00 Test Item Value Reference Range Interpretation Comments POC-GLUCOSE METER 148 mg/dL 70-110 H TESTED AT [address] ([place]) (test code [facility] [place] = 1538) [address] BASIC METABOLIC [id number] 06:32:00 Test Item Value Reference Range Interpretation [...] NOT APPLICABLE FOR DIALYSIS PATIEN TS. POCT-GLUCOSE [id number] 06:12:00 Test Item Value Reference Range Interpretation Comments POC-GLUCOSE METER 165 mg/dL 70-110 H TESTED AT [address] ([place]) (test code [facility] [place] = 1538) 00382 CBC W/PLT COUNT & AUTO [id number] 06:00:00 Test Item Value Reference Range Interpretation [...] PERCENT (BEAKER) (test code = 2801) POCT-GLUCOSE [id number] 21:02:00 Test Item Value Reference Range Interpretation Comments POC-GLUCOSE METER 185 mg/dL 70-110 H TESTED AT [address] ([place]) (test code [facility] [place] = 1538) 52686 POCT-GLUCOSE [id number] 16:21:00 Test Item Value Reference Range Interpretation Comments POC-GLUCOSE METER 141 mg/dL 70-110 H TESTED AT [address] ([place]) (test code [facility] [place] = 1538) 24757 POCT-GLUCOSE [id number] 12:26:00 Test Item Value Reference Range Interpretation Comments POC-GLUCOSE METER 145 mg/dL 70-110 H TESTED AT [address] ([place]) (test code [facility] [place] = 1538) 45881 POCT-GLUCOSE [id number] 06:43:00 Test Item Value Reference Range Interpretation Comments POC-GLUCOSE METER 170 mg/dL 70-110 H TESTED AT [facility] ([place] (test code [facility] [place] = 1538) [address] BASIC METABOLIC [id number] 06:39:00 Test Item Value Reference Range Interpretation [...] S NOT APPLICABLE FOR DIALYSIS PATIEN TS. [id number] 06:33:00 Test Item Value Reference Range Interpretation Comments MAGNESIUM (BEAKER) (test code = 1.9 mg/dL 1.5-3.0 627) CBC W/PLT COUNT & AUTO [id number] 06:10:00 Test Item Value Reference Range Interpretation [...] PERCENT (BEAKER) (test code = 2801) POCT-GLUCOSE [id number] 21:08:00 Test Item Value Reference Range Interpretation Comments POC-GLUCOSE METER 218 mg/dL 70-110 H TESTED AT [address] ([place]) (test code [facility] [place] = 1538) [address] POCT-GLUCOSE [id number] 16:36:00 Test Item Value Reference Range Interpretation Comments POC-GLUCOSE METER 142 mg/dL 70-110 H TESTED AT [facility] [address] ([facility]) (test code [facility] [place] = 1538) [address] POCT-GLUCOSE [id number] 11:26:00 Test Item Value Reference Range Interpretation Comments POC-GLUCOSE METER 191 mg/dL 70-110 H TESTED AT [facility] [address] ([place]) (test code [facility] [place] = 1538) [address] VANCOMYCIN LEVEL, [id number] 09:08:00 Test Item Value Reference Range Interpretation Comments VANCOMYCIN TROUGH (BEAKER) (test 17.9 ug/mL 10.0-20.0 code = 522) VANCOMYCIN DOSING BY RX - follow upTROUGH PRIOR TO DOSE ON 01/20/18 AT 8:30am COMPREHENSIVE METABOLIC [id number] 06:57:00 Test Item Value Reference Range Interpretation [...] NOT APPLICABLE FOR DIALYSIS PATIEN TS. POCT-GLUCOSE [id number] 06:33:00 Test Item Value Reference Range Interpretation Comments POC-GLUCOSE METER 226 mg/dL 70-110 H TESTED AT [address] ([place]) (test code [facility] [place] = 1538) [address] B-TYPE NATRIURETIC FACTOR (BNP)2018-01-20 06:00:00 Test Item Value Reference Range Interpretation Comments B-TYPE NATRIURETIC PEPTIDE (BEAKER) 371 pg/mL 0-100 H (test code = 700) CBC W/PLT COUNT & AUTO [id number] 05:40:00 Test Item Value Reference Range Interpretation [...] (BEAKER) (test code = 2801) BASIC METABOLIC [id number] 23:25:00 Test Item Value Reference Range Interpretation [...] S NOT APPLICABLE FOR DIALYSIS PATIEN TS. [id number] 23:19:00 Test Item Value Reference Range Interpretation Comments MAGNESIUM (BEAKER) (test code = 1.9 mg/dL 1.5-3.0 627) POCT-GLUCOSE [id number] 21:12:00 Test Item Value Reference Range Interpretation Comments POC-GLUCOSE METER 237 mg/dL 70-110 H TESTED AT [facility] ([place] (test code [facility] [place] = 1538) [address] POCT-GLUCOSE [id number] 17:00:00 Test Item Value Reference Range Interpretation Comments POC-GLUCOSE METER 156 mg/dL 70-110 H TESTED AT [facility] ([place]) (test code [facility] [place] = 1538) [address]25 POCT-GLUCOSE [id number] 12:51:00 Test Item Value Reference Range Interpretation Comments POC-GLUCOSE METER 135 mg/dL 70-110 H TESTED AT [address] ([place]) (test code [facility] [place] = 1538) 88461 POCT-GLUCOSE [id number] 08:16:00 Test Item Value Reference Range Interpretation Comments POC-GLUCOSE METER 212 mg/dL 70-110 H TESTED AT [address] ([place]) (test code [facility] [place] = 1538) 0[address]68 VANCOMYCIN LEVEL, [id number] 21:00:00 Test Item Value Reference Range Interpretation Comments VANCOMYCIN TROUGH ([place]) (test 14.3 ug/mL 10.0-20.0 code = 522) POCT-GLUCOSE [id number] 20:56:00 Test Item Value Reference Range Interpretation Comments POC-GLUCOSE METER 216 mg/dL 70-110 H TESTED AT [address] ([place]) (test code [facility] [place] = 1538) 84702 POCT-GLUCOSE [id number] 17:03:00 Test Item Value Reference Range Interpretation Comments POC-GLUCOSE METER 269 mg/dL 70-110 H TESTED AT [address] ([place]) (test code [facility] [place] = 1538) 89731 POCT-GLUCOSE [id number] 06:22:00 Test Item Value Reference Range Interpretation Comments POC-GLUCOSE METER 115 mg/dL 70-110 H TESTED AT [address] ([place]) (test code [facility] [place] = 1538) 75984 BASIC METABOLIC [id number] 04:43:00 Test Item Value Reference Range Interpretation [...] S NOT APPLICABLE FOR DIALYSIS PATIEN TS. [id number] 04:37:00 Test Item Value Reference Range Interpretation Comments MAGNESIUM (BEAKER) (test code = 1.8 mg/dL 1.5-3.0 627) CBC W/PLT COUNT & AUTO [id number] 04:24:00 Test Item Value Reference Range Interpretation [...] PERCENT (BEAKER) (test code = 2801) POCT-GLUCOSE [id number] 20:55:00 Test Item Value Reference Range Interpretation Comments POC-GLUCOSE METER 145 mg/dL 70-110 H TESTED AT [address] ([place]) (test code [facility] [place] = 1538) [address]24 VENOUS DOPPLER LEGS, [id number] 17:50:00Reason for exam:->r/o DVT FINAL REPORT Comparison: [...] MDReport Verified Date/Time: 01/17/2018 17:50:07 Reading Location: [facility] Reading Room POCT-GLUCOSE [id number] 17:04:00 Test Item Value Reference Range Interpretation Comments POC-GLUCOSE METER 134 mg/dL 70-110 H TESTED AT [address] ([place]) (test code [facility] [place] = 1538) 04798 POCT-GLUCOSE [id number] 11:54:00 Test Item Value Reference Range Interpretation Comments POC-GLUCOSE METER 219 mg/dL 70-110 H TESTED AT [address] ([facility]) (test code [facility] [place] = 1538) 97386 POCT-GLUCOSE [id number] 09:10:00 Test Item Value Reference Range Interpretation Comments POC-GLUCOSE METER 48 mg/dL 70-110 L TESTED AT [address] ([place]) (test code = [facility] [address] [facility] 1538) [address] BASIC METABOLIC [id number] 06:27:00 Test Item Value Reference Range Interpretation [...] NOT APPLICABLE FOR DIALYSIS PATIEN TS. POCT-GLUCOSE [id number] 06:26:00 Test Item Value Reference Range Interpretation Comments POC-GLUCOSE METER 101 mg/dL 70-110 TESTED AT [address] ([facility]) (test code [facility] [place] = 1538) [address]253 CBC W/PLT COUNT & AUTO [id number] 05:58:00 Test Item Value Reference Range Interpretation [...] PERCENT (BEAKER) (test code = 2801) TROPONIN [id number] 00:11:00 Test Item Value Reference Range Interpretation [...] = 700) RAD, CHEST, 1 VIEW, NON [id number] 00:09:00Reason for exam:->SHORTNESS OF BREATHReason for exam:->EDEMAReason for exam:->WEIGHT GAINShould this be performed at the bedside?->YesFINAL REPORT INDICATION: SHORTNESS OF BREATHEDEMAWEIGHT GAIN COMPARISON: December 07, 2017 TECHNIQUE: Single frontal view of the chest. FINDINGS: Lungs and pleura: Clear lungs. No effusion.Heart and mediastinum: Stable prominent cardiac size. Unremarkable mediastinal contours.Osseous structures: No acute abnormality.Other: None. IMPRESSION: No acute intrathoracic abnormality.Signed: JR Richy, Arcelia Juárez Verified Date/Time: 01/17/2018 00:09:15 Reading Location:[facility] C013Y CT Body Reading Room BASIC METABOLIC [id number] 00:02:00 Test Item Value Reference Range Interpretation [...] PATIEN TS. CBC W/PLT COUNT & AUTO [id number] 23:35:00 Test Item Value Reference Range Interpretation [...] PERCENT (BEAKER) (test code = 2801) BLOOD [id number] 10:00:00 Test Item Value Reference Range Interpretation Comments CULTURE (BEAKER) (test No growth in 5 days code = 1095) BLOOD [id number] 10:00:00 Test Item Value Reference Range Interpretation Comments CULTURE (BEAKER) (test No growth in 5 days code = 1095) WOUND CULTURE + GRAM [id number] 10:10:00 Test Item Value Reference Interpretation Comments [...] (test code = cocci in pairs and 971053) clusters POCT-GLUCOSE [id number] 17:33:00 Test Item Value Reference Range Interpretation Comments POC-GLUCOSE METER 105 mg/dL 70-110 TESTED AT [place] [address] ([place]) (test code [facility] [place] = 1538) [address]46 URINALYSIS W/ REFLEX URINE [id number] 09:56:00 Test Item Value Reference Range Interpretation [...] 1663) SOURCE(BEAKER) (test code = 2795) POCT-GLUCOSE [id number] 08:36:00 Test Item Value Reference Range Interpretation Comments POC-GLUCOSE METER 162 mg/dL 70-110 H TESTED AT [facility] [address] ([place]) (test code [facility] [place] = 1538) [address] TSH/FREE T4 IF [id number] 07:04:00 Test Item Value Reference Range Interpretation Comments THYROID STIMULATING HORMONE 4.64 uIU/mL 0.35-5.50 (BEAKER) (test code = 772) LIPID [id number] 06:50:00 Test Item Value Reference Range Interpretation [...] 130-159 High 160-189 Very High >=190BASIC METABOLIC [id number] 06:48:00 Test Item Value Reference Range Interpretation [...] PATIEN TS. CBC W/PLT COUNT & AUTO [id number] 06:33:00 Test Item Value Reference Range Interpretation [...] PERCENT (BEAKER) (test code = 2801) HEMOGLOBIN [id number] 06:32:00 Test Item Value Reference Range Interpretation Comments HEMOGLOBIN A1C (CECILIO) (test code = 10.4 % 4.3-6.1 H 368) VENOUS DOPPLER LEGS, [id number] 05:53:00Reason for exam:->edema rule out DVT/ CellulitisFINAL [...] MDReport Verified Date/Time: 12/08/2017 05:53:51 Reading Location: [address] Body Reading Room TROPONIN [id number] 00:46:00 Test Item Value Reference Range Interpretation [...] acidosis, acute neurological disease, and persistent tachyarrhythmia.POCT-GLUCOSE [id number] 21:14:00 Test Item Value Reference Range Interpretation Comments POC-GLUCOSE METER 221 mg/dL 70-110 H TESTED AT [address] ([place]) (test code [facility] [address] [facility] = 1538) 6[address] POCT-GLUCOSE [id number] 16:43:00 Test Item Value Reference Range Interpretation Comments POC-GLUCOSE METER 371 mg/dL 70-110 H TESTED AT [facility] [address] (BEAKER) (test code [facility] [place] = 1538) [address] CREATINE KINASE (CK), TOTAL AND [id number] 14:26:00 Test Item Value Reference Range Interpretation Comments CREATINE KINASE TOTAL (BEAKER) 366 U/L 40-250 H (test code = 380) CREATINE KINASE-MB (BEAKER) (test 8.1 ng/mL 0.0-4.9 H code = [...] acute neurological disease, and persistent tachyarrhythmia.BASIC METABOLIC [id number] 14:00:00 Test Item Value Reference Range Interpretation [...] S NOT APPLICABLE FOR DIALYSIS PATIEN TS. [id number] 13:54:00 Test Item Value Reference Range Interpretation Comments MAGNESIUM (BEAKER) 2.1 mg/dL 1.5-3.0 Specimen slightly (test code = 627) hemolyzed B-TYPE NATRIURETIC FACTOR (BNP)2017-12-07 13:48:00 Test Item Value Reference Range Interpretation Comments B-TYPE NATRIURETIC PEPTIDE (BEAKER) 520 pg/mL 0-100 H (test code = 700) [id number] 13:19:00 Test Item Value Reference Range Interpretation [...] Information (Auto Output)CBC W/PLT COUNT & AUTO [id number] 13:07:00 Test Item Value Reference Range Interpretation [...] = 2801) RAD, CHEST, 1 VIEW, NON [id number] 12:44:00Reason for exam:->CHEST PAIN FINAL REPORT Chest [...] MDReport Verified Date/Time: 12/07/2017 12:44:27 Reading Location: [address] Radiology Reading Room CREATINE KINASE (CK), TOTAL AND [id number] 02:36:00 Test Item Value Reference Range Interpretation [...] acute neurological disease, and persistent tachyarrhythmia.COMPREHENSIVE METABOLIC [id number] 02:28:00 Test Item Value Reference Range Interpretation [...] PATIEN TS. CBC W/PLT COUNT & AUTO [id number] 02:14:00 Test Item Value Reference Range Interpretation [...] PERCENT (BEAKER) (test code = 2801) KETONE, [id number] 01:55:00 Test Item Value Reference Range Interpretation Comments KETONES, BLOOD (BEAKER) (test code 0.2 mmol/L <0.4 = 1103) RAD, CHEST, 1 VIEW, NON [id number] 01:46:00Reason for exam:->pacemaker placement,pt feels it was [...] MDReport Verified Date/Time: 11/27/2017 01:46:38 Reading Location: [address] Reading Room POCT-GLUCOSE [id number] 13:29:00 Test Item Value Reference Range Interpretation Comments POC-GLUCOSE METER 214 mg/dL 70-110 H TESTED AT [facility] [address] (BEAKER) (test code [address] [facility] [place] = 1538) [id number] BASIC METABOLIC [id number] 06:48:00 Test Item Value Reference Range Interpretation [...] PATIEN TS. CBC W/PLT COUNT & AUTO [id number] 06:23:00 Test Item Value Reference Range Interpretation [...] L 0.00-0.20 (test code = 417) POCT-GLUCOSE [id number] 06:20:00 Test Item Value Reference Range Interpretation Comments POC-GLUCOSE METER 184 mg/dL 70-110 H TESTED AT [address] ([place]) (test code POINT [facility] [place] = 1538) [id number] POCT-GLUCOSE [id number] 20:47:00 Test Item Value Reference Range Interpretation Comments POC-GLUCOSE METER 323 mg/dL 70-110 H Notified Becky Jeffries MD/TESTED AT ([place]) (test code [address] POINT = 1538) [facility] [address] POCT-GLUCOSE [id number] 16:55:00 Test Item Value Reference Range Interpretation Comments POC-GLUCOSE METER 320 mg/dL 70-110 H TESTED AT [facility] [address] (BEAKER) (test code [address] [facility] [place] = 1535) [address] B-TYPE NATRIURETIC FACTOR (BNP)2017-09-08 11:28:00 Test Item Value Reference Range Interpretation Comments B-TYPE NATRIURETIC PEPTIDE (BEAKER) 800 pg/mL 0-100 H (test code = 700) TROPONIN [id number] 11:25:00 Test Item Value Reference Range Interpretation [...] acute neurological disease, and persistent tachyarrhythmia.BASIC METABOLIC [id number] 11:17:00 Test Item Value Reference Range Interpretation [...] S NOT APPLICABLE FOR DIALYSIS PATIEN TS. PT/[id number] 11:15:00 Test Item Value Reference Range Interpretation [...] (Auto Output)Final Information (Auto Output)Final Information (Auto Output)[id number] 11:11:00 Test Item Value Reference Range Interpretation Comments MAGNESIUM (BEAKER) (test code = 2.0 mg/dL 1.5-3.0 627) RAD, CHEST, 1 VIEW, NON [id number] 10:55:00Reason for exam:->chest pain FINAL REPORT CLINICAL HISTORY: chest pain TECHNIQUE: 1 view of the chest. COMPARISON: 06/10/2017 IMPRESSION: There is new pulmonary vascular congestion without lobar consolidation. There is blunting of the left costophrenic angle. The cardiomediastinal silhouette is magnified bytechnique with a pacemaker. Signed: Sia Hensley MDReport Verified Date/Time: 09/08/2017 10:55:33Reading Location: [facility] Radiology Reading Room CBC W/PLT COUNT & AUTO [id number] 10:47:00 Test Item Value Reference Range Interpretation [...] 0.00-0.20 (test code = 417) HIV-1 PCR, [id number] 05:37:00 Test Item Value Reference Range Interpretation Comments HIV-1 RESULT HIV RNA not detected HIV RNA not detected COMPONENT (BEAKER) (test code = 2703) This test uses a Real-Time Polymerase Chain Reaction (RT-PCR) methodology to detect a highly conserved region of the HIV-1 gag gene and was performed using the JENNIFER AmpliPrep/JENNIFER TaqMan HIV-1 test kit version 2.0 ([employer]Reportable range for this assay is 20 - 10,000,000 copies per mL (1.3 - 7.0 Log copies/mL).DOUBLE-STRANDED DNA (DSDNA) [id number] 10:04:00 Test Item Value Reference Range Interpretation Comments ANTI-DNA DS (BEAKER) (test code = Negative 1055) TIFF TITER AND [id number] 11:54:00 Test Item Value Reference Range Interpretation Comments TIFF TITER (BEAKER) (test code = :160 1541) TIFF PATTERN (BEAKER) (test code = Homogeneous 1781) ANTI-NUCLEAR ANTIBODY (TIFF)2017-06-14 11:53:00 Test Item Value Reference Range Interpretation Comments ANTI-NUCLEAR ANTIBODY (TIFF) (BEAKER) Positive Negative A (test code = 418) POCT-GLUCOSE [id number] 05:52:00 Test Item Value Reference Range Interpretation Comments POC-GLUCOSE METER 96 mg/dL 70-110 TESTED AT [address] ([place]) (test code = [facility] 153) [address] BASIC METABOLIC [id number] 05:15:00 Test Item Value Reference Range Interpretation [...] NOT APPLICABLE FOR DIALYSIS PATIEN TS. POCT-GLUCOSE [id number] 05:09:00 Test Item Value Reference Range Interpretation Comments POC-GLUCOSE METER 67 mg/dL 70-110 L TESTED AT [facility] 131[facility] ([facility]) (test code = [facility] 1538) [address] POCT-GLUCOSE [id number] 21:55:00 Test Item Value Reference Range Interpretation Comments POC-GLUCOSE METER 142 mg/dL 70-110 H TESTED AT [address] ([place]) (test code [facility] [place] = 1538) 26198 POCT-GLUCOSE [id number] 19:05:00 Test Item Value Reference Range Interpretation Comments POC-GLUCOSE METER 139 mg/dL 70-110 H TESTED AT [address] ([place]) (test code [facility] [place] = 1538) 14446 POCT-GLUCOSE [id number] 16:54:00 Test Item Value Reference Range Interpretation Comments POC-GLUCOSE METER 59 mg/dL 70-110 L TESTED AT [address] ([place]) (test code = [facility]) [address] POCT-GLUCOSE [id number] 13:19:00 Test Item Value Reference Range Interpretation Comments POC-GLUCOSE METER 235 mg/dL 70-110 H TESTED AT [address] ([place]) (test code [facility] [place] = 1538) 424[address] POCT-GLUCOSE [id number] 06:52:00 Test Item Value Reference Range Interpretation Comments POC-GLUCOSE METER 113 mg/dL 70-110 H TESTED AT [address] ([place]) (test code [facility] [place] = 1538) 7[address] POCT-GLUCOSE [id number] 21:48:00 Test Item Value Reference Range Interpretation Comments POC-GLUCOSE METER 183 mg/dL 70-110 H TESTED AT [address] ([place]) (test code [facility] [place] = 1538) 84249 POCT-GLUCOSE [id number] 17:22:00 Test Item Value Reference Range Interpretation Comments POC-GLUCOSE METER 262 mg/dL 70-110 H TESTED AT [address] ([place]) (test code [facility] [place] = 1538) 90204 POCT-GLUCOSE [id number] 12:30:00 Test Item Value Reference Range Interpretation Comments POC-GLUCOSE METER 131 mg/dL 70-110 H TESTED AT [address] ([place]) (test code [facility] [place] = 1538) [address] MICROALBUMIN, RANDOM [id number] 12:25:00 Test Item Value Reference Range Interpretation Comments MICROALBUMIN URINE (BEAKER) (test 59.0 mg/dL code = 1794) Reference Range: No NormalsHEPATITIS PANEL, [id number] 11:31:00 Test Item Value Reference Range Interpretation Comments HEPATITIS A IGM ANTIBODY (BEAKER) Nonreactive Nonreactive (test code = 498) HEPATITIS B CORE IGM ANTIBODY Nonreactive Nonreactive (BEAKER) (test code = 645) HEPATITIS C ANTIBODY (BEAKER) Nonreactive Nonreactive (test code = 367) HEPATITIS B SURFACE ANTIGEN (2) Nonreactive Nonreactive (BEAKER) (test code = 2585) COMPLEMENT COMPONENT [id number] 11:09:00 Test Item Value Reference Range Interpretation Comments C4 COMPLEMENT (BEAKER) (test code = 28 mg/dL 15-57 394) COMPLEMENT COMPONENT [id number] 11:09:00 Test Item Value Reference Range Interpretation Comments C3 COMPLEMENT (BEAKER) (test code = 145 mg/dL 82-193 393) POCT-GLUCOSE [id number] 06:48:00 Test Item Value Reference Range Interpretation Comments POC-GLUCOSE METER 75 mg/dL 70-110 TESTED AT [facility] 131[facility] ([place]) (test code = [address] [place] [address]) [address] TROPONIN [id number] 05:58:00 Test Item Value Reference Range Interpretation [...] acute neurological disease, and persistent tachyarrhythmia.BASIC METABOLIC [id number] 05:49:00 Test Item Value Reference Range Interpretation Comments SODIUM (BEAKER) 141 meq/L 135-148 (test code = 381) POTASSIUM (BEAKER) 4.0 meq/L 3.6-5.5 (test code = 379) CHLORIDE (BEAKER) 106 meq/L 98-106 (test code = 382) CO2 (BEAKER) (test 27 meq/L 20-29 code = 355) BLOOD UREA NITROGEN 23 mg/dL 10-26 ([place]) (test code = 354) CREATININE (AKER) 1.50 mg/dL 0.50-1.20 H (test code = 358) GLUCOSE RANDOM 92 mg/dL 70-110 ([place]) (test code = 652) CALCIUM (BEAKER) 8.5 mg/dL 8.5-10.5 (test code = 697) EGFR ([place]) (test 51 mL/min/1.73 ESTIMA JOSÉ LUIS GFR IS code = 1092) sq m NOT ACCURATE CREATININE CLEARANCE IN PREDICTING GLOMERULAR FILTRATION RATE . ESTIMATED GFR I S NOT APPLICABLE FOR DIALYSIS PATIEN TS. [id number] 05:48:00 Test Item Value Reference Range Interpretation Comments PHOSPHORUS ([place]) (test code = 4.2 mg/dL 2.5-4.5 604) POCT-GLUCOSE [id number] 21:18:00 Test Item Value Reference Range Interpretation Comments POC-GLUCOSE METER 146 mg/dL 70-110 H TESTED AT [address] ([place]) (test code [facility] = 1538) [address] TROPONIN [id number] 18:26:00 Test Item Value Reference Range Interpretation Comments TROPONIN I ([place]) (test code = 0.04 ng/mL 0.00-0.15 397) [...] acidosis, acute neurological disease, and persistent tachyarrhythmia.POCT-GLUCOSE [id number] 17:07:00 Test Item Value Reference Range Interpretation Comments POC-GLUCOSE METER 97 mg/dL 70-110 TESTED AT [address] ([place]) (test code = [facility] [address] [facility] 1538) [address] POCT-GLUCOSE [id number] 13:31:00 Test Item Value Reference Range Interpretation Comments POC-GLUCOSE METER 125 mg/dL 70-110 H TESTED AT [address] ([place]) (test code [facility] = 1538) [address] TROPONIN [id number] 06:11:00 Test Item Value Reference Range Interpretation [...] acidosis, acute neurological disease, and persistent tachyarrhythmia.LIPID [id number] 06:05:00 Test Item Value Reference Range Interpretation [...] 130-159 High 160-189 Very High >=190BASIC METABOLIC [id number] 06:03:00 Test Item Value Reference Range Interpretation [...] S NOT APPLICABLE FOR DIALYSIS PATIEN TS. [id number] 05:57:00 Test Item Value Reference Range Interpretation Comments MAGNESIUM (BEAKER) (test code = 1.9 mg/dL 1.5-3.0 627) HEMOGLOBIN [id number] 05:56:00 Test Item Value Reference Range Interpretation Comments HEMOGLOBIN A1C (BEAKER) (test code = 7.7 % 4.3-6.1 H 368) CBC W/PLT COUNT & AUTO [id number] 05:31:00 Test Item Value Reference Range Interpretation [...] L 0.00-0.20 (test code = 417) TROPONIN [id number] 22:53:00 Test Item Value Reference Range Interpretation [...] acute neurological disease, and persistent tachyarrhythmia.U/S, ABDOMINAL, [id number] 22:08:00Reason for exam:->AscitesReason for exam:->BLOATEDFINAL REPORT U/S, [...] MDReport Verified Date/Time: 06/10/2017 22:08:13 Reading Location: [address] Reading Room URINALYSIS W/ REFLEX URINE [id number] 18:41:00 Test Item Value Reference Range Interpretation [...] 1663) SOURCE(BEAKER) (test code = 2795) TROPONIN [id number] 13:07:00 Test Item Value Reference Range Interpretation [...] H (test code = 700) HEPATIC FUNCTION [id number] 12:59:00 Test Item Value Reference Range Interpretation [...] (test code = 23 U/L 5-50 347) [id number] 12:59:00 Test Item Value Reference Range Interpretation Comments LIPASE (BEAKER) (test code = 749) 19 U/L 6-51 BASIC METABOLIC [id number] 12:57:00 Test Item Value Reference Range Interpretation [...] PATIEN TS. CBC W/PLT COUNT & AUTO [id number] 12:37:00 Test Item Value Reference Range Interpretation [...] = 417) RAD, CHEST, 1 VIEW, NON [id number] 12:32:00Reason for exam:->shortness of breathReason for exam:->BLOATEDShould this be performed [facility]?->YesFINAL REPORT Comparison: 04/06/2012 TECHNIQUE: Single view of the chest FINDINGS: Lung volumes are low. Prominence of the cardiac silhouette and vasculature which may be related topoor inspiration and technique . There is no gross consolidation identified. No overt edema or largepleural effusion. Left-sided pacing device noted. No acute skeletal abnormality. Signed: Veronica Bonilla Verified Date/Time: 06/10/2017 12:32:49 Reading Location: [facility] Radiology Reading Room POCT-GLUCOSE [id number] 07:40:00 Test Item Value Reference Range Interpretation Comments POC-GLUCOSE METER 100 mg/dL 70-110 TESTED AT [address] ([place]) (test code [facility] = 1538) 03557 POCT-GLUCOSE [id number] 06:57:00 Test Item Value Reference Range Interpretation Comments POC-GLUCOSE METER 50 mg/dL 70-110 L TESTED AT [address] ([place]) (test code = [facility] [address] [facility] 1538) 92071 POCT-GLUCOSE [id number] 20:59:00 Test Item Value Reference Range Interpretation Comments POC-GLUCOSE METER 142 mg/dL 70-110 H TESTED AT [facility] 131[facility] ([place]) (test code [facility] [place] = 1538) 79170 POCT-GLUCOSE [id number] 17:23:00 Test Item Value Reference Range Interpretation Comments POC-GLUCOSE METER 123 mg/dL 70-110 H TESTED AT [address] ([place]) (test code [facility] [place] = 1538) 26752 POCT-GLUCOSE [id number] 12:38:00 Test Item Value Reference Range Interpretation Comments POC-GLUCOSE METER 153 mg/dL 70-110 H TESTED AT [address] ([place]) (test code [facility] [place] = 1538) [address] BASIC METABOLIC [id number] 05:49:00 Test Item Value Reference Range Interpretation [...] NOT APPLICABLE FOR DIALYSIS PATIEN TS. POCT-GLUCOSE [id number] 05:36:00 Test Item Value Reference Range Interpretation Comments POC-GLUCOSE METER 74 mg/dL 70-110 TESTED AT [facility] 131[facility] ([place]) (test [facility] = [facility]) [address] CBC W/PLT COUNT & AUTO [id number] 05:29:00 Test Item Value Reference Range Interpretation [...] L 0.00-0.20 (test code = 417) POCT-GLUCOSE [id number] 19:53:00 Test Item Value Reference Range Interpretation Comments POC-GLUCOSE METER 120 mg/dL 70-110 H TESTED AT [address] ([place]) (test code [facility] [place] = 1538) 28378 POCT-GLUCOSE [id number] 15:41:00 Test Item Value Reference Range Interpretation Comments POC-GLUCOSE METER 135 mg/dL 70-110 H TESTED AT [address] ([place]) (test code [facility] [place] = 1538) [address] RAD, CHEST, 1 VIEW, NON [id number] 12:31:00Reason for exam:->follow up FINAL REPORT COMPARISON: 04/03/2017 TECHNIQUE: Single view of the chest FINDINGS: Small left pleural effusion with adjacent airspace disease. There is mild vascular congestion elsewhere. Cardiac silhouette is enlarged. Left-sided pacing device noted. Signed: Gab Bonilla MDReport Verified Date/Time: 04/06/2017 12:31:34 Reading Location: [facility] Radiology Reading Room POCT- GLUCOSE [id number] 11:39:00 Test Item Value Reference Range Interpretation Comments POC-GLUCOSE METER 184 mg/dL 70-110 H TESTED AT [address] ([place]) (test code [facility] [place] = 1538) [address]81 POCT-GLUCOSE [id number] 07:18:00 Test Item Value Reference Range Interpretation Comments POC-GLUCOSE METER 83 mg/dL 70-110 TESTED AT [address] ([place]) (test code = [address] [facility] 1538) 9[address] BASIC METABOLIC [id number] 06:01:00 Test Item Value Reference Range Interpretation [...] = 700) CBC W/PLT COUNT & AUTO [id number] 05:39:00 Test Item Value Reference Range Interpretation [...] L 0.00-0.20 (test code = 417) POCT-GLUCOSE [id number] 21:56:00 Test Item Value Reference Range Interpretation Comments POC-GLUCOSE METER 144 mg/dL 70-110 H TESTED AT [address] ([place]) (test code [facility] [place] = 1538) 90329 POCT-GLUCOSE [id number] 16:38:00 Test Item Value Reference Range Interpretation Comments POC-GLUCOSE METER 153 mg/dL 70-110 H TESTED AT [address] ([place]) (test code [facility] [place] = 1538) 37495 POCT-GLUCOSE [id number] 12:52:00 Test Item Value Reference Range Interpretation Comments POC-GLUCOSE METER 144 mg/dL 70-110 H TESTED AT [address] ([place]) (test code [facility] [place] = 1538) 57134 POCT-GLUCOSE [id number] 06:07:00 Test Item Value Reference Range Interpretation Comments POC-GLUCOSE METER 124 mg/dL 70-110 H TESTED AT [address] ([place]) (test code [facility] [place] = 1538) 37[address] BASIC METABOLIC [id number] 05:26:00 Test Item Value Reference Range Interpretation [...] S NOT APPLICABLE FOR DIALYSIS PATIEN TS. [id number] 05:20:00 Test Item Value Reference Range Interpretation Comments MAGNESIUM (BEAKER) (test code = 2.4 mg/dL 1.5-3.0 627) CBC W/PLT COUNT & AUTO [id number] 05:19:00 Test Item Value Reference Range Interpretation [...] L 0.00-0.20 (test code = 417) POCT-GLUCOSE [id number] 19:59:00 Test Item Value Reference Range Interpretation Comments POC-GLUCOSE METER 198 mg/dL 70-110 H TESTED AT [address] ([place]) (test code [facility] [place] = 1538) 49185 POCT-GLUCOSE [id number] 16:34:00 Test Item Value Reference Range Interpretation Comments POC-GLUCOSE METER 230 mg/dL 70-110 H TESTED AT [address] ([place]) (test code [facility] [place] = 1538) 84710 POCT-GLUCOSE [id number] 13:02:00 Test Item Value Reference Range Interpretation Comments POC-GLUCOSE METER 273 mg/dL 70-110 H TESTED AT [address] ([place]) (test code [facility] [place] = 1538) 074[address] B-TYPE NATRIURETIC FACTOR (BNP)2017-04-04 06:55:00 Test Item Value Reference Range Interpretation Comments B-TYPE NATRIURETIC PEPTIDE (BEAKER) 824 pg/mL 0-100 H (test code = 700) BASIC METABOLIC [id number] 06:47:00 Test Item Value Reference Range Interpretation [...] 697) EGFR (BEAKER) (test 73 mL/min/1.73 ESTIMA JOÉS LUIS GFR IS code = 1092) sq m NOT ACCURATE CREATININE CLEARANCE IN PREDICTING GLOMERULAR FILTRATION RATE . ESTIMATED GFR I S NOT APPLICABLE FOR DIALYSIS PATIEN TS. [id number] 06:41:00 Test Item Value Reference Range Interpretation Comments MAGNESIUM (BEAKER) (test code = 2.2 mg/dL 1.5-3.0 627) CBC W/PLT COUNT & AUTO [id number] 06:32:00 Test Item Value Reference Range Interpretation [...] 0-100 H (test code = 700) TROPONIN [id number] 12:05:00 Test Item Value Reference Range Interpretation [...] neurological disease, and persistent tachyarrhythmia.RAD, CHEST, 2 [id number] 11:59:00 Reason for exam:->SOBFINAL REPORT History: Shortness [...] MDReport Verified Date/Time: 04/03/2017 11:59:26 Reading Location: [facility] [id number] Ortho Consult Reading Room BASIC METABOLIC [id number] 11:57:00 Test Item Value Reference Range Interpretation [...] PATIEN TS. CBC W/PLT COUNT & AUTO [id number] 11:42:00 Test Item Value Reference Range Interpretation [...] = 417) RAD, CHEST, 1 VIEW, NON [id number] 11:12:00Reason for exam:->follow up FINAL REPORT Chest, 1 view Clinical history: follow up Comparison: 03/25/2017Discussion: Left-sided pacemaker in position without pneumothorax. Small left pleural effusion is seen with atelectasis. The cardiac silhouette is enlarged with mild perihilar edema. No acute osseous abnormality. Signed: Jamir Mai MDReport Verified Date/Time: 03/27/2017 11:12:12 Reading Location: [place] [id number] Ortho Consult Reading Room TROPONIN [id number] 08:29:00 Test Item Value Reference Range Interpretation [...] = 700) CREATINE KINASE (CK), TOTAL AND [id number] 08:27:00 Test Item Value Reference Range Interpretation Comments CREATINE KINASE TOTAL (BEAKER) 303 U/L 40-250 H (test code = 380) CREATINE KINASE-MB (BEAKER) (test 5.9 ng/mL 0.0-4.9 H code = 750) CREATINE KINASE-MB INDEX (BEAKER) 1.9 % (test code = 395) CK-MB Reference Range:<5 Normal5-10 Borderline>10 AbnormalBASIC METABOLIC [id number] 08:18:00 Test Item Value Reference Range Interpretation [...] PATIEN TS. CBC W/PLT COUNT & AUTO [id number] 07:44:00 Test Item Value Reference Range Interpretation [...] L 0.00-0.20 (test code = 417) POCT-GLUCOSE [id number] 05:54:00 Test Item Value Reference Range Interpretation Comments POC-GLUCOSE METER 226 mg/dL 70-110 H TESTED AT [address] ([place]) (test code [facility] [place] = 1538) 710[address] POCT-GLUCOSE [id number] 20:54:00 Test Item Value Reference Range Interpretation Comments POC-GLUCOSE METER 180 mg/dL 70-110 H TESTED AT [address] ([place]) (test code [facility] [place] = 1538) 646[address] POCT-GLUCOSE [id number] 16:40:00 Test Item Value Reference Range Interpretation Comments POC-GLUCOSE METER 262 mg/dL 70-110 H TESTED AT [address] ([place]) (test code [facility] [place] = 1538) 22847 LIPID [id number] 15:41:00 Test Item Value Reference Range Interpretation Comments TRIGLYCERIDES (BEAKER) (test code = 86 mg/dL 540) CHOLESTEROL (BEAKER) (test code = 203 mg/dL 631) HDL CHOLESTEROL ([place]) (test code 33 mg/dL = 976) LDL CHOLESTEROL CALCULATED ([place]) 153 mg/dL (test code = 633) Triglyceride Reference Range: Low Risk <150 Borderline 150-199 High Risk 200-499 Very High Risk >=500Cholesterol Reference Range: Low Risk <200 Borderline 200-239 High Risk >240HDL Cholesterol Reference Range: Low Risk >=60 High Risk <40LDL Cholesterol Reference Range: Optimal <100 Near Optimal 100-129 Borderline 130-159 High 160-189 Very High >=190TSH/FREE T4 IF [id number] 15:27:00 Test Item Value Reference Range Interpretation Comments THYROID STIMULATING HORMONE 4.34 uIU/mL 0.35-5.50 (BEAKER) (test code = 772) TROPONIN [id number] 15:18:00 Test Item Value Reference Range Interpretation [...] H (test code = 700) BASIC METABOLIC [id number] 15:03:00 Test Item Value Reference Range Interpretation [...] NOT APPLICABLE FOR DIALYSIS PATIEN TS. HEMOGLOBIN [id number] 08:23:00 Test Item Value Reference Range Interpretation Comments HEMOGLOBIN A1C (BEAKER) (test code = 8.8 % 4.3-6.1 H 368) CBC W/PLT COUNT & AUTO [id number] 07:23:00 Test Item Value Reference Range Interpretation [...] L 0.00-0.20 (test code = 417) POCT-GLUCOSE [id number] 06:53:00 Test Item Value Reference Range Interpretation Comments POC-GLUCOSE METER 176 mg/dL 70-110 H TESTED AT [address] ([facility]) (test code [facility] [place] = 1538) 827[address] TROPONIN [id number] 23:25:00 Test Item Value Reference Range Interpretation [...] H code = 750) CREATINE KINASE-MB INDEX ([place]) 1.7 % (test code = 395) CK-MB Reference Range:<5 Normal5-10 Borderline>10 AbnormalPOCT-GLUCOSE [id number] 20:54:00 Test Item Value Reference Range Interpretation Comments POC-GLUCOSE METER 157 mg/dL 70-110 H TESTED AT [address] ([place]) (test code [facility] [place] = 1538) [address]83 TROPONIN [id number] 14:46:00 Test Item Value Reference Range Interpretation Comments TROPONIN I ([place]) (test code = 0.60 ng/mL 0.00-0.15 HH [...] Reference Range Interpretation Comments B-TYPE NATRIURETIC PEPTIDE ([place]) 624 pg/mL 0-100 H (test code = 700) PROTHROMBIN [id number] 14:42:00 Test Item Value Reference Range Interpretation Comments PROTIME ([place]ANNER) (test code = 11.4 seconds 9.3-12.0 759) INR ([place]NER) (test code = 370) 1.1 <=5.9 RECOMMENDED COUMADIN/WARFARIN INR THERAPY RANGESSTANDARD DOSE: 2.0 - 3.0 Includes: PROPHYLAXIS forvenous thrombosis, systemic embolization; TREATMENT for venous thrombosis and/or pulmonary embolus.HIGH RISK: Target INR is 2.5-3.5 for patients with mechanical heart valves.[id number] 14:42:00 Test Item Value Reference Range Interpretation Comments PARTIAL THROMBOPLASTIN TIME 27.0 seconds 23.0-35.0 ([place]NER) (test code = 760) CREATINE KINASE (CK), TOTAL AND [id number] 14:41:00 Test Item Value Reference Range Interpretation Comments CREATINE KINASE TOTAL (BEAKER) 328 U/L 40-250 H (test code = 380) CREATINE KINASE-MB (BEAKER) (test 5.9 ng/mL 0.0-4.9 H code = 750) CREATINE KINASE-MB INDEX (BEAKER) 1.8 % (test code = 395) CK-MB Reference Range:<5 Normal5-10 Borderline>10 AbnormalCOMPREHENSIVE METABOLIC [id number] 14:34:00 Test Item Value Reference Range Interpretation [...] PATIEN TS. CBC W/PLT COUNT & AUTO [id number] 14:04:00 Test Item Value Reference Range Interpretation [...] = 417) RAD, CHEST, 1 VIEW, NON [id number] 13:52:00Reason for exam:->SHORTNESS OF BREATHReason for exam:->EDEMAShould [...] MDReport Verified Date/Time: 03/25/2017 13:52:22 Reading Location: [facility] Radiology Reading Room POCT- GLUCOSE [id number] 12:04:00 Test Item Value Reference Range Interpretation Comments POC-GLUCOSE METER 171 mg/dL 70-110 H TESTED AT [address] ([place]) (test code [facility] [place] = 1538) [address]286 BASIC METABOLIC [id number] 08:14:00 Test Item Value Reference Range Interpretation [...] PATIEN TS. CBC W/PLT COUNT & AUTO [id number] 07:57:00 Test Item Value Reference Range Interpretation [...] (test code = 416) BASOPHILS ABSOLUTE COUNT (BANNER) 0.10 K/ L 0.00-0.20 (test code = 417) POCT-GLUCOSE [id number] 07:11:00 Test Item Value Reference Range Interpretation Comments POC-GLUCOSE METER 164 mg/dL 70-110 H TESTED AT [address] ([place]) (test code [facility] [place] = 1538) 40385 POCT-GLUCOSE [id number] 22:24:00 Test Item Value Reference Range Interpretation Comments POC-GLUCOSE METER 222 mg/dL 70-110 H TESTED AT [address] ([place]) (test code [facility] [place] = 1538) [id number] POCT-GLUCOSE [id number] 17:12:00 Test Item Value Reference Range Interpretation Comments POC-GLUCOSE METER 187 mg/dL 70-110 H TESTED AT [address] ([place]) (test code [facility] [place] = 1538) [id number] POCT-GLUCOSE [id number] 17:12:00 Test Item Value Reference Range Interpretation Comments POC-GLUCOSE METER 190 mg/dL 70-110 H TESTED AT [address] ([place]) (test code [facility] [place] = 1538) [id number] POCT-GLUCOSE [id number] 05:55:00 Test Item Value Reference Range Interpretation Comments POC-GLUCOSE METER 181 mg/dL 70-110 H TESTED AT [address] ([place]) (test code [facility] [place] = 1538) [id number] POCT-GLUCOSE [id number] 21:23:00 Test Item Value Reference Range Interpretation Comments POC-GLUCOSE METER 305 mg/dL 70-110 H Baby teste d Mother ID ([place]) (test code used/[place] [facility] [place] [place] [address] = 1538) [address] [facility] 77 478 POCT-GLUCOSE [id number] 19:05:00 Test Item Value Reference Range Interpretation Comments POC-GLUCOSE METER 181 mg/dL 70-110 H TESTED AT [address] ([place]) (test code [facility] [place] = 1538) [id number] POCT-GLUCOSE [id number] 19:04:00 Test Item Value Reference Range Interpretation Comments POC-GLUCOSE METER 252 mg/dL 70-110 H TESTED AT [address] ([place]) (test code [facility] [place] = 1538) [address] POCT-GLUCOSE [id number] 19:04:00 Test Item Value Reference Range Interpretation Comments POC-GLUCOSE METER 175 mg/dL 70-110 H TESTED AT [facility] ([place]) (test code [facility] [place] = 1538) [address] POCT-GLUCOSE [id number] 06:14:00 Test Item Value Reference Range Interpretation Comments POC-GLUCOSE METER 212 mg/dL 70-110 H TESTED AT [address] ([place]) (test code [facility] [place] = 1538) [address] CREATINE KINASE (CK), TOTAL AND [id number] 03:39:00 Test Item Value Reference Range Interpretation Comments CREATINE KINASE TOTAL ([place]) 174 U/L 40-250 (test code = 380) CREATINE KINASE-MB ([place]) (test 4.7 ng/mL 0.0-4.9 code = 750) CREATINE KINASE-MB INDEX ([place]) 2.7 % (test code = 395) CK-MB Reference Range:<5 Normal5-10 Borderline>10 AbnormalTROPONIN I 2017-02-05 03:39:00 Test Item Value Reference Range Interpretation Comments TROPONIN I ([place]) (test code = 0.07 ng/mL 0.00-0.15 397) [...] acidosis, acute neurological disease, and persistent tachyarrhythmia.LIPID [id number] 03:33:00 Test Item Value Reference Range Interpretation Comments TRIGLYCERIDES ([place]) (test code = 164 mg/dL 540) CHOLESTEROL ([place]) (test code = 217 mg/dL 631) HDL CHOLESTEROL ([place]) (test code 28 mg/dL = 976) LDL CHOLESTEROL CALCULATED ([place]) 156 mg/dL (test code = 633) Triglyceride Reference Range: Low Risk <150 Borderline 150-199 High Risk 200-499 Very High Risk >=500Cholesterol Reference Range: Low Risk <200 Borderline 200-239 High Risk >240HDL Cholesterol Reference Range: Low Risk >=60 High Risk <40LDL Cholesterol Reference Range: Optimal <100 Near Optimal 100-129 Borderline 130-159 High 160-189 Very High >=190BASIC METABOLIC [id number] 03:31:00 Test Item Value Reference Range Interpretation [...] NOT APPLICABLE FOR DIALYSIS PATIEN TS. HEMOGLOBIN [id number] 03:30:00 Test Item Value Reference Range Interpretation Comments HEMOGLOBIN A1C ([facility]) (test code = 9.7 % 4.3-6.1 H 368) CBC W/PLT COUNT & AUTO [id number] 03:18:00 Test Item Value Reference Range Interpretation [...] L 0.00-0.20 (test code = 417) POCT-GLUCOSE [id number] 21:13:00 Test Item Value Reference Range Interpretation Comments POC-GLUCOSE METER 285 mg/dL 70-110 H TESTED AT [address] ([place]) (test code [facility] [place] = 1538) [address] POCT-GLUCOSE [id number] 21:13:00 Test Item Value Reference Range Interpretation Comments POC-GLUCOSE METER 288 mg/dL 70-110 H TESTED AT [address] ([place]) (test code [facility] [place] = 1538) [address] CREATINE KINASE (CK), TOTAL AND [id number] 16:27:00 Test Item Value Reference Range Interpretation [...] and persistent tachyarrhythmia.RAD, CHEST, 1 VIEW, NON [id number] 09:17:00Reason for exam:->chest painFINAL REPORT Chest one [...] Gonzales Verified Date/Time: 02/04/2017 09:17:01 Reading Location: [facility] Radiology Reading Room TROPONIN [id number] 09:14:00 Test Item Value Reference Range Interpretation Comments TROPONIN I (BEMARTY) (test code = 0.03 ng/mL 0.00-0.15 397) [...] = 700) CREATINE KINASE (CK), TOTAL AND [id number] 09:13:00 Test Item Value Reference Range Interpretation Comments CREATINE KINASE TOTAL ([facility]AKER) 235 U/L 40-250 (test code = 380) CREATINE KINASE-MB ([facility]) (test 6.0 ng/mL 0.0-4.9 H code = 750) CREATINE KINASE-MB INDEX ([place]) 2.6 % (test code = 395) CK-MB Reference Range:<5 Normal5-10 Borderline>10 AbnormalBASIC METABOLIC [id number] 09:05:00 Test Item Value Reference Range Interpretation [...] S NOT APPLICABLE FOR DIALYSIS PATIEN TS. [id number] 09:03:00 Test Item Value Reference Range Interpretation [...] is 2.5-3.5 for patients with mechanical heart valves.[id number] 09:00:00 Test Item Value Reference Range Interpretation Comments MAGNESIUM (BEAKER) (test code = 2.0 mg/dL 1.5-3.0 627) CBC W/PLT COUNT & AUTO [id number] 08:50:00 Test Item Value Reference Range Interpretation [...] = 700) CREATINE KINASE (CK), TOTAL AND [id number] 11:53:00 Test Item Value Reference Range Interpretation Comments CREATINE KINASE TOTAL ([place]AKER) 228 U/L 40-250 (test code = 380) CREATINE KINASE-MB (BEAKER) (test 4.8 ng/mL 0.0-4.9 code = 750) CREATINE KINASE-MB INDEX ([place]AKER) 2.1 % (test code = 395) CK-MB Reference Range:<5 Normal5-10 Borderline>10 AbnormalBASIC METABOLIC [id number] 11:52:00 Test Item Value Reference Range Interpretation [...] NOT APPLICABLE FOR DIALYSIS PATIEN TS. TROPONIN [id number] 11:40:00 Test Item Value Reference Range Interpretation [...] acidosis, acute neurological disease, and persistent tachyarrhythmia.PROTHROMBIN [id number] 10:16:00 Test Item Value Reference Range Interpretation [...] = 417) RAD, CHEST, 1 VIEW, NON [id number] 09:42:00Reason for exam:->SHORTNESS OF BREATHOn \\T\\ off [...] MDReport Verified Date/Time: 12/01/2016 09:42:01 Reading Location: [facility] Radiology Reading Room POCT-GLUCOSE [id number] 18:07:00 Test Item Value Reference Range Interpretation Comments POC-GLUCOSE METER 159 mg/dL 70-110 H TESTED AT [address] ([place]) (test code [facility] [place] = 1538) [id number] POCT-GLUCOSE [id number] 13:56:00 Test Item Value Reference Range Interpretation Comments POC-GLUCOSE METER 218 mg/dL 70-110 H TESTED AT [address] ([place]) (test code [facility] [place] = 1538) [address] POCT-GLUCOSE [id number] 06:26:00 Test Item Value Reference Range Interpretation Comments POC-GLUCOSE METER 118 mg/dL 70-110 H TESTED AT [address] ([place]) (test code [facility] [place] = 1538) [address] HEMOGLOBIN [id number] 02:55:00 Test Item Value Reference Range Interpretation Comments HEMOGLOBIN A1C ([place]) (test code = 9.3 % 4.3-6.1 H 368) TROPONIN [id number] 02:45:00 Test Item Value Reference Range Interpretation Comments TROPONIN I ([place]) (test code = 0.04 ng/mL 0.00-0.15 397) [...] Reference Range Interpretation Comments CREATINE KINASE TOTAL ([place]) 253 U/L 40-250 H (test code = 380) CREATINE KINASE-MB ([facility]AKER) (test 4.2 ng/mL 0.0-4.9 code = 750) CREATINE KINASE-MB INDEX ([facility]) 1.7 % (test code = 395) CK-MB [...] 130-159 High 160-189 Very High >=190BASIC METABOLIC [id number] 02:38:00 Test Item Value Reference Range Interpretation [...] PATIEN TS. CBC W/PLT COUNT & AUTO [id number] 02:37:00 Test Item Value Reference Range Interpretation [...] L 0.00-0.20 (test code = 417) POCT-GLUCOSE [id number] 21:41:00 Test Item Value Reference Range Interpretation Comments POC-GLUCOSE METER 222 mg/dL 70-110 H TESTED AT [address] ([place]) (test code [facility] [place] = 1538) [address] POCT-GLUCOSE [id number] 17:42:00 Test Item Value Reference Range Interpretation Comments POC-GLUCOSE METER 187 mg/dL 70-110 H TESTED AT [address] ([place]) (test code [facility] [place] = 1538) [address] TROPONIN [id number] 17:08:00 Test Item Value Reference Range Interpretation Comments TROPONIN I (AKER) (test code = 0.04 ng/mL 0.00-0.15 397) [...] Range Interpretation Comments CREATINE KINASE TOTAL (AKER) 310 U/L 40-250 H (test code = 380) CREATINE KINASE-MB (AKER) (test 4.8 ng/mL 0.0-4.9 code = 750) CREATINE KINASE-MB INDEX ([place]) 1.5 % (test code = 395) CK-MB Reference Range:<5 Normal5-10 Borderline>10 AbnormalPOCT-GLUCOSE [id number] 12:19:00 Test Item Value Reference Range Interpretation Comments POC-GLUCOSE METER 284 mg/dL 70-110 H TESTED AT [address] ([place]) (test code [facility] [place] = 1538) [address] URINALYSIS W/ REFLEX URINE [id number] 08:37:00 Test Item Value Reference Range Interpretation [...] 0-100 H (test code = 700) CALCIUM, [id number] 06:41:00 Test Item Value Reference Range Interpretation Comments CALCIUM IONIZED (BEAKER) (test 1.14 mmol/L 1.12-1.27 code = 698) PH, BLOOD ([facility]AKER) (test code = 7.43 1810) CREATINE KINASE (CK), TOTAL AND [id number] 06:14:00 Test Item Value Reference Range Interpretation [...] 0.00-0.20 (test code = 417) BASIC METABOLIC [id number] 06:08:00 Test Item Value Reference Range Interpretation [...] NOT APPLICABLE FOR DIALYSIS PATIEN TS. PROTHROMBIN [id number] 06:01:00 Test Item Value Reference Range Interpretation Comments PROTIME (BEAKER) (test code = 10.2 seconds 9.3-12.0 759) INR (BEAKER) (test code = 370) 1.0 <=5.9 RECOMMENDED COUMADIN/WARFARIN INR THERAPY RANGESSTANDARD DOSE: 2.0 - 3.0 Includes: PROPHYLAXIS forvenous thrombosis, systemic embolization; TREATMENT for venous thrombosis and/or pulmonary embolus.HIGH RISK: Target INR is 2.5-3.5 for patients with mechanical heart valves.TROPONIN [id number] 05:35:00 Test Item Value Reference Range Interpretation [...] CK-MB Reference Range:<5 Normal5-10 Borderline>10 AbnormalBASIC METABOLIC [id number] 05:27:00 Test Item Value Reference Range Interpretation [...] PATIEN TS. CBC W/PLT COUNT & AUTO [id number] 05:11:00 Test Item Value Reference Range Interpretation [...]
[2021-06-24] MEDS ORDERED: HYDROMORPHONE HCL 1 MG/ML INJ ONE (17:26)
[2021-06-24] MEDS ORDERED: KETOROLAC 30 MG/ML INJ ONE (17:27)
[2021-06-24] MEDS ORDERED: INSULIN -REGULAR HUMAN 50 UNIT/0.5 ML ML ONE (17:39)
--- NOTE | 2021-06-24 17:41 | RAD REPORT ---
EXAM DESCRIPTION: RAD - Wrist Left 3 View - 06/24/2021 5:28 pm CLINICAL HISTORY: PAIN Pain COMPARISON: No comparisons FINDINGS: No fracture or dislocation seen. Prominent soft tissue swelling or fullness is seen along the dorsum of the wrist along the ulnar aspect. Prominent atherosclerosis.
--- NOTE | 2021-06-24 18:14 | EDPHYS ---
Physician Documentation [facility] Name: Binu Mcelroy Age: 45 yrs Sex: Male : 1975 Arrival Date: 06/24/2021 Time: 16:28 Bed 7 Private MD: ED Physician Sarwat Mas HPI: 06/24 17:52 This 45 yrs old Male presents to ER via Ambulatory with complaints of Wrist Pain. jr8 17:52 The patient or guardian reports pain, swelling, tenderness. The complaints affect the jr8 left wrist diffusely. Onset: The symptoms/episode began/occurred acutely, yesterday. Modifying factors: The symptoms are alleviated by nothing, the symptoms are aggravated by movement. Associated signs and symptoms: The patient has no apparent associated signs or symptoms. The patient has not experienced similar symptoms in the past. The patient has not recently seen a physician. This is a 45-year-old male patient who presented to the emergency room with complaints of diffuse circumferential left wrist pain. Denies trauma. Stated that it started abruptly yesterday and continues to worsen. Stated that it is slightly swollen and extremely tender to palpation. Patient with a history of gout and is also having right index finger bogginess and swelling along with tenderness. Denies fever or any other symptoms at this time.. Historical: - Allergies: 16:56 No Known Allergies; bp - PMHx: 16:56 CHF; Myocardial infarction; Transient cerebral ischemia; diabetes mellitus; CVA; bp Cerebrovascular accident; - PSHx: 16:56 Pacemaker/Defib; Heart Stents; bp - Immunization history:: Adult Immunizations up to date, Client reports receiving the 2nd dose of the Covid vaccine. - Social history:: Smoking status: Patient denies any tobacco usage or history of. ROS: 17:52 Constitutional: Negative for fever, chills, and weight loss. jr8 17:52 MS/extremity: Positive for decreased range of motion, pain, swelling, tenderness, of the left wrist. 17:52 All other systems are negative. Exam: 17:52 Constitutional: This is a well developed, well nourished patient who is awake, alert, jr8 and in no acute distress. Cardiovascular: Regular rate and rhythm with a normal S1 and S2. No gallops, murmurs, or rubs. Normal PMI, no JVD. No pulse deficits. Respiratory: Lungs have equal breath sounds bilaterally, clear to auscultation and percussion. No rales, rhonchi or wheezes noted. No increased work of breathing, no retractions or nasal flaring. Abdomen/GI: Soft, non-tender, with normal bowel sounds. No distension or tympany. No guarding or rebound. No evidence of tenderness throughout. Skin: Warm, dry with normal turgor. Normal color with no rashes, no lesions, and no evidence of cellulitis. Neuro: Awake and alert, GCS 15, oriented to person, place, time, and situation. Cranial nerves II-XII grossly intact. Motor strength 5/5 in all extremities. Sensory grossly intact. 17:52 Musculoskeletal/extremity: Extremities: grossly normal except: noted in the left wrist: Patient has mild swelling and bogginess to the radial aspect of the left wrist. Mild swelling extends to the ulnar aspect of the dorsal wrist. Tenderness diffusely both dorsal and ventral aspects of the wrist. There is no erythema or cellulitis noted. Patient has full range of motion but with pain. No ecchymosis noted as well., noted in the right index finger: Patient has a boggy swollen and slightly discolored right PIP index finger. Mild tenderness to palpation with range of motion. No signs of infection., Circulation is intact in all extremities. Sensation intact. Vital Signs: 16:55 BP 90 / 67; Pulse 77; Resp 16; Temp 97.1; Pulse Ox 97% ; Weight 97.52 kg; Height 5 ft. bp 10 in. (177.80 cm); 17:10 BP 112 / 69; Pulse 70; Resp 15; Pulse Ox 96% ; Pain 10/10; jl7 18:22 BP 110 / 79; Pulse 66; Resp 15; Pulse Ox 96% ; jl7 16:55 Body Mass Index 30.85 (97.52 kg, 177.80 cm) bp MDM: 17:15 Patient medically screened. jr8 17:52 Data reviewed: vital signs, nurses notes, radiologic studies, plain films. Data jr8 interpreted: Pulse oximetry: on room air is 96 %. Interpretation: normal. Counseling: I had a detailed discussion with the patient and/or guardian regarding: the historical points, exam findings, and any diagnostic results supporting the discharge/admit diagnosis, radiology results, the need for outpatient follow up, a family practitioner, to return to the emergency department if symptoms worsen or persist or if there are any questions or concerns that arise at home. ED course: Patient has a history of congestive heart failure along with uncontrolled diabetes. Advised based on his sugar levels today that we will not start steroids as it could be more detrimental for him as he is poorly controlled. Needs to closely monitor his sugars and have better control of them with his insulin at home. Gave a one-time NSAID dose shot here for pain management along with traditional opioids. Patient already has Pyote and tramadol at home. He needs to continue those but will not prescribe any other NSAID-based products based on his medical complications. Recommended that he see his primary care for possible change in medication if the allopurinol is not working at this point. If worse he can come back to the emergency room at any point time for further evaluation. Patient understands the plan at this time will follow up and/or come back.. 06/24 17:39 Order name: Glucose, Ancillary Testing; Complete Time: 17:52 EDMS 06/24 18:39 Order name: Glucose, Ancillary Testing; Complete Time: 23:49 EDMS 06/24 17:17 Order name: XRAY Wrist LEFT 3 view; Complete Time: 17:57 jr8 06/24 17:16 Order name: Glucose Level; Complete Time: 17:34 jr8 Administered Medications: 17:32 Drug: Ketorolac 15 mg Route: IM; Site: left deltoid; jl7 18:22 Follow up: Response: No adverse reaction; Pain is decreased jl7 17:35 Drug: Dilaudid (HYDROmorphone) 1 mg Route: IM; Site: right deltoid; jl7 18:22 Follow up: Response: No adverse reaction; Pain is decreased jl7 17:41 Drug: Insulin Regular Human 10 units {Co-Signature: adair (Anh Singer RN).} Route: jl7 Sub-Q; Site: abdomen; 18:56 Follow up: Response: Blood sugar is lowered jl7 Disposition: 21:55 Co-signature as Attending Physician, Sarwat VALADEZ was immediately available on-site ms3 in the Emergency Department for consultation in the care of the patient.. Disposition Summary: 06/24/21 18:13 Discharge Ordered Location: Home jr8 Problem: new jr8 Symptoms: have improved jr8 Condition: Stable jr8 Diagnosis - Gout, unspecified jr8 - Pain in left wrist jr8 Followup: jr8 - With: Private Physician - When: 2 - 3 days - Reason: Recheck today's complaints, Continuance of care, Re-evaluation by your physician Discharge Instructions: - Discharge Summary Sheet jr8 - Joint Pain jr8 - Gout jr8 Forms: - Medication Reconciliation Form jr8 - Thank You Letter jr8 - Antibiotic Education jr8 - Prescription Opioid Use jr8 Signatures: Dispatcher [employer] Reid Stone PA PA jr8 Ellen Bradford RN RN jl7 Ty Morales RN RN bp Sarwat Mas DO DO ms3 Anh Singer RN ww
--- NOTE | 2021-06-24 18:14 | ER ---
Nurse's Notes [facility] Name: Binu Mcelroy Age: 45 yrs Sex: Male : 1975 Arrival Date: 06/24/2021 Time: 16:28 Bed 7 Private MD: Diagnosis: Gout, unspecified;Pain in left wrist Presentation: 06/24 16:55 Chief complaint: Patient states: LEFT WRIST PAIN, EDEMA AND DECREASED ROM. DENIES bp TRAUMA. S/S SINCE Y/D. Coronavirus screen: At this time, the client does not indicate any symptoms associated with coronavirus-19. Ebola Screen: No symptoms or risks identified at this time. Initial Sepsis Screen: Does the patient meet any 2 criteria? No. Patient's initial sepsis screen is negative. Does the patient have a suspected source of infection? No. Patient's initial sepsis screen is negative. Risk Assessment: Do you want to hurt yourself or someone else? Patient reports no desire to harm self or others. Onset of symptoms is unknown. 16:55 Method Of Arrival: Ambulatory bp 16:55 Acuity: CRISS 3 bp Historical: - Allergies: 16:56 No Known Allergies; bp - PMHx: 16:56 CHF; Myocardial infarction; Transient cerebral ischemia; diabetes mellitus; CVA; bp Cerebrovascular accident; - PSHx: 16:56 Pacemaker/Defib; Heart Stents; bp - Immunization history:: Adult Immunizations up to date, Client reports receiving the 2nd dose of the Covid vaccine. - Social history:: Smoking status: Patient denies any tobacco usage or history of. Screenin:10 Abuse screen: Denies threats or abuse. Denies injuries from another. Nutritional jl7 screening: No deficits noted. Tuberculosis screening: No symptoms or risk factors identified. Fall Risk None identified. Assessment: 17:10 General: Appears in no apparent distress. uncomfortable, Behavior is calm, cooperative, jl7 appropriate for age. Pain: Complains of pain in left wrist Pain currently is 10 out of 10 on a pain scale. Neuro: Level of Consciousness is awake, alert, obeys commands, Oriented to person, place, time, situation. Cardiovascular: Patient's skin is warm and dry. Respiratory: Airway is patent Respiratory effort is even, unlabored, Respiratory pattern is regular, symmetrical. Derm: Skin is pink, warm \T\ dry. Musculoskeletal: Swelling present in right index finger and left wrist. 17:30 Reassessment: ERP notified of BGL 486, see MAR for orders. jl7 18:40 Reassessment: Repeat BGL 437. jl7 Vital Signs: 16:55 BP 90 / 67; Pulse 77; Resp 16; Temp 97.1; Pulse Ox 97% ; Weight 97.52 kg; Height 5 ft. bp 10 in. (177.80 cm); 17:10 BP 112 / 69; Pulse 70; Resp 15; Pulse Ox 96% ; Pain 10/10; jl7 18:22 BP 110 / 79; Pulse 66; Resp 15; Pulse Ox 96% ; jl7 16:55 Body Mass Index 30.85 (97.52 kg, 177.80 cm) bp ED Course: 16:28 Patient arrived in ED. ds1 16:56 Triage completed. bp 16:56 Arm band placed on. bp 16:58 Reid Langley PA is PHCP. jr8 16:59 Sarwat Mas DO is Attending Physician. jr8 16:59 Ellen Bradford, SHIREEN is Primary Nurse. jl7 17:10 Patient has correct armband on for positive identification. Bed in low position. Call jl7 light in reach. Side rails up X 1. Pulse ox on. NIBP on. 17:30 XRAY Wrist LEFT 3 view In Process Unspecified. EDMS 18:45 Velcro wrist splint applied to left wrist. Sling \T\ swathe to left arm. jl7 18:54 No provider procedures requiring assistance completed. Patient did not have IV access jl7 during this emergency room visit. Administered Medications: 17:32 Drug: Ketorolac 15 mg Route: IM; Site: left deltoid; jl7 18:22 Follow up: Response: No adverse reaction; Pain is decreased jl7 17:35 Drug: Dilaudid (HYDROmorphone) 1 mg Route: IM; Site: right deltoid; jl7 18:22 Follow up: Response: No adverse reaction; Pain is decreased jl7 17:41 Drug: Insulin Regular Human 10 units {Co-Signature: adair (Anh Singer RN).} Route: jl7 Sub-Q; Site: abdomen; 18:56 Follow up: Response: Blood sugar is lowered jl7 Outcome: 18:13 Discharge ordered by . jr8 18:54 Discharged to home ambulatory. jl7 18:54 Condition: stable 18:54 Discharge instructions given to patient, family, Instructed on discharge instructions, follow up and referral plans. Demonstrated understanding of instructions, follow-up care. 18:56 Patient left the ED. jl7 Signatures: Dispatcher [employer] EDDC Jenny Younger ds1 Reid Langley PA PA jr8 Leal, Jahala, RN RN jl7 Ty Morales RN RN bp Whitney Wood RN ww Corrections: (The following items were deleted from the chart) 18:56 17:30 Reassessment: ERP notified of BGL 428, see MAR for orders jl7 jl7
[2021-06-24 19:07] VITALS: TEMP 97.1
[2021-06-24 19:08] VITALS: O2SAT 96
[2021-06-24 19:10] VITALS: BP 110/79
== END 2021-06-24 18:56 | disposition home or self-care (01) ==
LOC: ER 16:27
DX: M10.9 Gout, unspecified (principal); E11.9 Type 2 diabetes mellitus without complications; I50.9 Heart failure, unspecified; Z86.73 Personal history of transient ischemic attack (TIA), and cerebral infarction without residual deficits; Z95.810 Presence of automatic (implantable) cardiac defibrillator; Z95.818 Presence of other cardiac implants and grafts
CPT/HCPCS: 82947 ×2; 73110; 96372; 99284; J1170

== ENCOUNTER 2021-07-07 07:08 | Emergency (ER) | payer OTHER ==
--- OUTSIDE RECORDS SUMMARY | 2021-07-07 08:18 | XMS REPORT | Continuity of Care Document ---
:1975 Author Organization [facility] t Address [address] [place] [address] Dr. Huber [address] [place] [address] Care Team Providers Name Role Phone ALEXEI ENRIQUEZ Primary Care Physician Unavailable DR PATRICK Attending Clinician Unavailable LULU Attending Clinician [phone] SHELBY Attending Clinician [phone] CONTRERAS Attending Clinician Unavailable CONTRERAS Attending Clinician [phone] NURSE Attending Clinician Unavailable FRANZ Attending Clinician Unavailable FRANZ Attending Clinician [phone] DR DIANE Attending Clinician Unavailable Kathleen Riddle MD Attending Clinician Ayden SCHULER Attending Clinician Nuvia Lugo MD Attending Clinician Jackie Nguyen MD Attending Clinician Deacon Nair MD Attending Clinician OMSTEFANI Attending Clinician Unavailable OMSTEFANI Attending Clinician [phone] IRIZARRY Attending Clinician Unavailable IRIZARRY Attending Clinician [phone] Ayden Serra MD Attending Clinician Landry SCHULER Attending Clinician Lilliam SCHULER Attending Clinician Neida Lugo MD Attending Clinician Warren Blunt MD Attending Clinician LUBNA Attending Clinician Unavailable LUBNA Attending Clinician [phone] JERRY HUMMEL Attending Clinician Unavailable AYDEN SERRA Attending Clinician Unavailable [facility] Attending Clinician Unavailable SIDDHARTHA Attending Clinician Unavailable ENRIQUE Attending Clinician [phone] JONAS Attending Clinician Unavailable MIMA MARQUIS Attending Clinician Unavailable RADHA MURGUIA Attending Clinician Unavailable KASSI KULKARNI Attending Clinician Unavailable MANAV Attending Clinician [phone] SWETHA Attending Clinician Unavailable VERObdulia Attending Clinician Unavailable ISAURA Attending Clinician [phone] CANAMAR Attending Clinician Unavailable TIMA Attending Clinician Unavailable [...] Effective Date Expiration Date S ource 1000 [id number] 1961 00:00:00 0165 [id number] 1961 00:00:00 [facility]I CARE - [id number] [id number] MED[facility]ID MEDICARE PART A [id number] 2019 \\T\\ B - MEDICARE 00:00:00 Problems Condition Condition Condition Status Onset Resolution Last Treating Co mments Source Name Details Category Date Date Treatment Clinician Date Diabetic Diabetic Disease [facility] Medi renuka [...] be different from the original. ICD9 DX [employer]er Seizure Seizure Disease [facility] Tobacco Tobacco Disease Active [facility] disorder disorder [facility] l [facility] Stroke Stroke Disease [facility] Obesity, Obesity, Disease [facility] Cerebral Cerebral Disease Active Overview: [facility] infarction infarction 10-15 [facility] - 00:00: g of this Medical note Center might be different from the original. UPDATED BY ICD10 SNOMED/IM O UPDATES Hypertensi Hypertensi Disease Active C [facility] on on [facility] Diabetes Diabetes Disease Active [facility] Diabetic Diabetic Disease Active [facility] neuropathy neuropathy [facility] Hyperlipid Hyperlipid Disease Active [facility] Carpal Carpal Disease Active [facility] tunnel tunnel [facility] - syndrome syndrome [facility] Allergies, Adverse Reactions, Alerts Allergy Allergy Status Severity Reaction(s) Onset Inactive Treating Comm ents Source Name Type Date Date Clinician NO KNOWN Allergy Active [facility] Social History Social Habit Start Date Stop Date Quantity Comments Source Alcohol intake 2019-07-03 Access [facility] lt 00:00:00 History of tobacco 2019-04-04 Current non-smoker [facility] use 00:00:00 Nutritional 2019-04-04 [facility] observable 00:00:00 Tobacco use and 2019-04-04 : No Details [facility] exposure 00:00:00 Available Quantity Details - : No Details Available Health-related 2019-04-04 Access [facility] Behavior 00:00:[address] [facility] - Alcohol Frequency [facility] History SDOH [facility] - Alcohol Std Drinks [facility] History SDOH [facility] - Alcohol Binge Medical [facility] ter Sex Assigned At Male [facility] Cigarettes smoked 2016-01-08 2016-01-[address] [facility] - current (pack per 00:00:00 00:00:00 Medical Center day) - Reported Cigarette 2016-01-08 2016-01-[address] [facility] - pack-years 00:00:00 00:00:00 [facility] Alcohol Comment 2012-10-15 2012-10-[address] [facility] - 00:00:00 00:00:00 [facility] Smoking Status Start Date Stop Date [...] 00:00: oral route 00 every day carvedilol 2021-0 No 1{table Q12H take 1 Ac cess [...] route 00 3 times every day clopidogrel 0 No take 1 Acce ss 75 mg 2-15 tablet (75 Health tablet 00:00: mg) by 00 oral route once daily bumetanide No take 1 Acces s 1 mg tablet 2-15 tablet (1 Hea lth 00:00: mg) by 00 oral route 2 times per day carvedilol 0 No 1{table Q12H take [...] Humalog 2021-0 2021- No inject [facility] KwikPen 05-13- 5-10 Units Healt [facility] (U-100) 00:00: 00:00 [...] :00 TWICE A DAY WITH FOOD CARVEDILOL 2021- No TAKE ONE Ac cess 12.5 MG 2-14 02-15 TABLET BY Health TABLET 00:00: 00:00 MOUTH 00 :00 TWICE A DAY WITH FOOD CARVEDILOL 2021- No TAKE ONE Ac cess 12.5 MG 2-14 02-15 TABLET BY Health TABLET 00:00: 00:00 MOUTH 00 :00 TWICE A DAY WITH FOOD CARVEDILOL 2021-0 2021- No TAKE ONE Ac cess 12.5 MG 2-14 02-15 TABLET BY Health TABLET 00:00: 00:00 MOUTH 00 :00 TWICE A DAY WITH FOOD CARVEDILOL 2021- No TAKE ONE Ac cess 12.5 MG 2-14 02-15 TABLET BY Health TABLET 00:00: 00:00 MOUTH 00 :00 TWICE A DAY WITH FOOD CARVEDILOL 2021- No TAKE ONE Ac cess 12.5 MG 2-14 02-15 TABLET BY Health TABLET 00:00: 00:00 MOUTH 00 :00 TWICE A DAY WITH FOOD CARVEDILOL 2021-2021- No TAKE ONE Ac cess 12.5 MG [...] oral route 00 :00 every day rosuvastati 2-0 2022- No 1{table [...] Q1D take 1 Access n 40 mg 205-13 t} tablet by Health tablet 00:00: 00:00 oral route 00 :00 every day rosuvastati 2021- No 1{table Q1D take 1 Access n 40 mg 2-15 t} tablet by Health tablet 00:00: 00:00 [...] release 24 in the hr morning clopidogrel 2021-0 2021- No take 1 Acc ess 75 mg 1-05 02-15 tablet (75 Health tablet 00:00: 00:00 mg) by 00 :00 oral route once daily allopurinol 20212021- No take 1/2 Dx: A ccess 100 [...] No take 1 Acc ess 75 mg 1- 02-15 tablet (75 Health tablet 00:00: 00:00 [...] 5 mg tablet 2-30 tablet by Hea lt 00:00: oral route [...] 1 Acce ss 5 mg tablet 2-30 -15 tablet by He alth 00:00: 00:00 oral route 00 :00 every day bumetanide 2020-03- No take 1 Acce ss 1 mg tablet 2-30 02-15 tablet (1 He alth 00:00: 00:00 mg) by 00 :00 oral route 2 times per day amlodipine 2020-03- No take 1 Acce ss 5 mg tablet 2-30 -15 tablet (5 He alth 00:00: 00:00 mg) by 00 :00 oral route once daily metolazone 2020-03- No take 1 Acce ss 5 mg tablet 2-30 -15 tablet by He alth 00:00: 00:00 oral route 00 :00 every day bumetanide 2020-03- No take 1 Acce ss 1 mg tablet 2-30 -15 tablet (1 He alth 00:00: 00:00 mg) by 00 :00 oral route 2 times per day amlodipine 2020-03- No take 1 Acce ss 5 mg tablet 2-30 -15 tablet (5 He alth 00:00: 00:00 [...] route 00 :00 every day rosuvastati 2020- 202- No 1{table Q1D take 1 Access [...] route 00 :00 every day rosuvastati 2020- 202- No 1{table Q1D take 1 Access [...] Q1W take 1 A ccess 1,250 mcg 1-05 -27 le} capsule by [facility] (50,000 00:00: 00:00 oral route unit) 00 :00 every capsule week for 12 weeks Vitamin D2 2020-03- No 1{capsu Q1W take 1 A ccess 1,250 mcg 1-05 -27 le} capsule by [facility] (50,000 00:00: 00:00 oral route unit) 00 :00 every capsule week for 12 weeks Vitamin D2 2020-03- No 1{capsu Q1W take 1 A ccess 1,250 mcg 1-05 -27 le} capsule by [facility] (50,000 00:00: 00:00 oral route unit) 00 :00 every capsule week for 12 weeks Vitamin D2 2020-03- No 1{capsu Q1W take 1 A ccess 1,250 mcg 1-05 -27 le} capsule by [facility] (50,000 00:00: 00:00 oral route unit) 00 :00 every capsule week for 12 weeks Vitamin D2 2020-03- No 1{capsu Q1W take 1 A ccess 1,250 mcg 1-05 -27 le} capsule by [facility] (50,000 00:00: 00:00 oral route unit) 00 :00 every capsule week for 12 weeks Vitamin D2 2020-03- No 1{capsu Q1W take 1 A ccess 1,250 mcg -05 27 le} capsule by [facility] (50,000 00:00: 00:00 oral route unit) 00 :00 every capsule week for 12 weeks Vitamin D2 2020-03- No 1{capsu Q1W take 1 A ccess 1,250 mcg 1-05 27 le} capsule by [facility] (50,000 00:00: 00:00 oral route unit) 00 :00 every capsule week for 12 weeks Vitamin D2 2020-03- No 1{capsu Q1W take 1 A ccess 1,250 mcg -27 le} capsule by [facility] (50,000 00:00: 00:00 oral route unit) 00 :00 every capsule week for 12 weeks Vitamin D2 2020-03- No 1{capsu Q1W take 1 A ccess 1,250 mcg -27 le} capsule by [facility] (50,000 00:00: 00:00 oral route unit) 00 :00 every capsule week for 12 weeks Vitamin D2 2020-03- No 1{capsu Q1W take 1 A ccess 1,250 mcg -27 le} capsule by [facility] (50,000 00:00: 00:00 oral route unit) 00 :00 every capsule week for 12 weeks Vitamin D2 2020-03- No 1{capsu Q1W take 1 A ccess 1,250 mcg 1-05 27 le} capsule by [facility] (50,000 00:00: 00:00 oral route unit) 00 :00 every capsule week for 12 weeks Vitamin D2 2020-03- No 1{capsu Q1W take 1 A ccess 1,250 mcg 1-05 27 le} capsule by [facility] (50,000 00:00: 00:00 oral route unit) 00 :00 every capsule week for 12 weeks allopurinol 2020-03- No take 1/2 Dx: A ccess 100 mg 04-0205 tablet (50 M10.449, He alth tablet 00:00: [...] Acces s 20 mg 1-03 tablet by [employer] tablet 00:00: oral route 00 every day [...] 50 Acces s FlexTouch 1-03 unit by [employer] U-100 00:00: subcutaneo Insulin 100 00 us [...] take 1 A ccess n 40 mg -03 t} tablet by Health tablet 00:00: oral route 00 every day prednisone 2020-03 No take 2 Acces s 20 mg 1-03 tablet by Health tablet 00:00: oral route 00 every day x 5 days Levemir 2020-03 No 50U Q12H inject 50 Acces s FlexTouch 1-03 unit by [employer] U-100 00:00: subcutaneo Insulin 100 00 us [...] 50 Acces s FlexTouch 1-03 unit by [employer] U-100 00:00: subcutaneo Insulin 100 00 us [...] 50 Acces s FlexTouch 1-03 unit by [employer] U-100 00:00: subcutaneo Insulin 100 00 us route 2 unit/mL (3 times mL) every day subcutaneou s pen gabapentin 2020-03 No 1{table Q8H take 1 Ac cess 800 mg 1-03 t} tablet by [employer] tablet 00:00: oral route 00 3 times every day Levemir 2020-03 No 50U Q12H inject 50 Acces s FlexTouch 1-03 unit by [employer] U-100 00:00: subcutaneo Insulin 100 00 us route 2 unit/mL (3 times mL) every day subcutaneou s pen Levemir 2020-03 No 50U Q12H inject 50 Acces s FlexTouch 1-03 unit by [employer] U-100 00:00: subcutaneo Insulin 100 00 us route 2 unit/mL (3 times mL) every day subcutaneou s pen Levemir 2020-03 No 50U Q12H inject 50 Acces s FlexTouch 1-03 unit by Health U-100 00:00: subcutaneo Insulin 100 00 us route 2 unit/mL (3 times mL) every day subcutaneou s pen Levemir 2020-03 No 50U Q12H inject 50 Acces s FlexTouch 1-03 unit by [employer] U-100 00:00: subcutaneo Insulin 100 00 us route 2 unit/mL (3 times mL) every day subcutaneou s pen Levemir 2020-03 No 50U Q12H inject 50 Acces s FlexTouch 1-03 unit by [employer] U-100 00:00: subcutaneo Insulin 100 00 us route 2 unit/mL (3 times mL) every day subcutaneou s pen Levemir 2020-03 No 50U Q12H inject 50 Acces s FlexTouch 1-03 unit by [employer] U-100 00:00: subcutaneo Insulin 100 00 us route 2 unit/mL (3 times mL) every day subcutaneou s pen prednisone 2021-1 2022- No take 2 Acce ss 20 mg [...] Q8H take 1 A ccess 800 mg -03 -15 t} tablet by Health tablet 00:00: 00:00 oral route 00 :00 3 times every day prednisone 2020-2021- No take 2 Acce ss 20 mg -05 28-15 tablet by Health tablet 00:00: 00:00 oral route 00 :00 every day x 5 days gabapentin 2020-03- No 1{table Q8H take 1 A ccess [...] as needed for low back pain rosuvastati 2020-0 No 1{table Q1D take 1 [...] ccess 1,250 mcg 11-02 le} capsule by [facility] (50,000 00:00: 00:00 oral route unit) 00 :00 every capsule week for 12 weeks Vitamin D2 2020-0 2021- No 1{capsu Q1W take 1 A ccess 1,250 mcg 8-07 10-29 le} capsule by [facility] (50,000 00:00: 00:00 oral route unit) 00 :00 every capsule week for 12 weeks Vitamin D2 2020- No 1{capsu Q1W take 1 A ccess 1,250 mcg 11-02 le} capsule by [facility] (50,000 00:00: 00:00 oral route unit) 00 :00 every capsule week for 12 weeks Vitamin D2 2020- No 1{capsu Q1W take 1 A ccess 1,250 mcg 11-02 le} capsule by [facility] (50,000 00:00: 00:00 oral route unit) 00 :00 every capsule week for 12 weeks Vitamin D2 2020- No 1{capsu Q1W take 1 A ccess 1,250 mcg 11-02 le} capsule by [facility] (50,000 00:00: 00:00 oral route unit) 00 :00 every capsule week for 12 weeks Vitamin D2 2020- No 1{capsu Q1W take 1 A ccess 1,250 mcg 11-02 le} capsule by [facility] (50,000 00:00: 00:00 oral route unit) 00 :00 every capsule week for 12 weeks Vitamin D2 2020- No 1{capsu Q1W take 1 A ccess 1,250 mcg 11-02 le} capsule by [facility] (50,000 00:00: 00:00 oral route unit) 00 :00 every capsule week for 12 weeks Vitamin D2 2020- No 1{capsu Q1W take 1 A ccess 1,250 mcg 11-02 le} capsule by [facility] (50,000 00:00: 00:00 oral route unit) 00 :00 every capsule week for 12 weeks Vitamin D2 2020- No 1{capsu Q1W take 1 A ccess 1,250 mcg 11-02 le} capsule by [facility] (50,000 00:00: 00:00 oral route unit) 00 :00 every capsule week for 12 weeks Vitamin D2 2020- No 1{capsu Q1W take 1 A ccess 1,250 mcg 11-02 le} capsule by [facility] (50,000 00:00: 00:00 oral route unit) 00 :00 every capsule week for 12 weeks Vitamin D2 2020- No 1{capsu Q1W take 1 A ccess 1,250 mcg 801-24 le} capsule by [facility] (50,000 00:00: 00:00 oral route unit) 00 :00 every capsule week for 12 weeks Vitamin D2 2020- No 1{capsu Q1W take 1 A ccess 1,250 mcg 11-02 le} capsule by [facility] (50,000 00:00: 00:00 oral route unit) 00 :00 every capsule week for 12 weeks Vitamin D2 2020- No 1{capsu Q1W take 1 A ccess 1,250 mcg 11-02 le} capsule by [facility] (50,000 00:00: 00:00 oral route unit) 00 :00 every capsule week for 12 weeks Vitamin D2 2020- No 1{capsu Q1W take 1 A ccess 1,250 mcg 11-02 le} capsule by [facility] (50,000 00:00: 00:00 oral route unit) 00 :00 every capsule week for 12 weeks Vitamin D2 2020- No 1{capsu Q1W take 1 A ccess 1,250 mcg 11-02 le} capsule by [facility] (50,000 00:00: 00:00 oral route unit) 00 :00 every capsule week for 12 weeks Vitamin D2 2020- No 1{capsu Q1W take 1 A ccess 1,250 mcg 11-02 le} capsule by [facility] (50,000 00:00: 00:00 oral route unit) 00 :00 every capsule week for 12 weeks Vitamin D2 2020- No 1{capsu Q1W take 1 A ccess 1,250 mcg 801-24 le} capsule by [facility] (50,000 00:00: 00:00 oral route unit) 00 :00 every capsule week for 12 weeks Vitamin D2 2020- No 1{capsu Q1W take 1 A ccess 1,250 mcg 11-02 le} capsule by [facility] (50,000 00:00: 00:00 oral route unit) 00 :00 every capsule week for 12 weeks Vitamin D2 2020- No 1{capsu Q1W take 1 A ccess 1,250 mcg 11-02 le} capsule by [facility] (50,000 00:00: 00:00 oral route unit) 00 :00 every capsule week for 12 weeks Vitamin D2 2020- No 1{capsu Q1W take 1 A ccess 1,250 mcg 11-02 le} capsule by [facility] (50,000 00:00: 00:00 oral route unit) [...] 5 mg tablet 8-03 tablet by a [facility] 00:00: oral route 00 every day bumetanide No take 1 Acces s 1 mg tablet 8-03 tablet (1 Hea lth 00:00: mg) by 00 oral route 2 times per day gabapentin 2021-0 No 1{table Q8H take 1 [...] by 00 oral route once daily carvedilol 2021-0 No 1{table Q12H take 1 Ac cess [...] ccess mg tablet 8-03 t} tablet by [place] [address], ealt 00:00: oral route M79.644, 00 every 12 M14.679, hours as E11.621, needed E11.40 tramadol 50 2020-0 No 1{table Q12H take 1 Dx: A ccess mg tablet 8-03 t} tablet by [place] [address], ealt 00:00: oral route M79.644, 00 every 12 M14.679, hours as E11.621, needed E11.40 tramadol 50 0 No 1{table Q12H take 1 Dx: A ccess mg tablet 8-03 t} tablet by [place] [address], ealt 00:00: oral route M79.644, 00 every 12 M14.679, hours as E11.621, needed E11.40 tramadol 50 0 No 1{table Q12H take 1 Dx: A ccess mg tablet 8-03 t} tablet by [place] [address], ealt 00:00: oral route M79.644, 00 every 12 M14.679, hours as E11.621, needed E11.40 tramadol 50 2020-0 No 1{table Q12H take 1 Dx: A ccess mg tablet 8-03 t} tablet by [place] [address], ealt 00:00: oral route M79.644, 00 every 12 M14.679, hours as E11.621, needed E11.40 tramadol 50 0 No 1{table Q12H take 1 Dx: A ccess mg tablet 8-03 t} tablet by [place] [address], ealt 00:00: oral route M79.644, 00 every 12 M14.679, hours as E11.621, needed E11.40 tramadol 50 2020-0 2022- No 1{table Q12H take 1 Dx: Access mg tablet 8-03 02-15 t} tablet by [place] [address], [facility] 00:00: 00:00 oral route M79.644, 00 :00 every 12 M14.679, hours as E11.621, needed E11.40 tramadol 50 2021- No 1{table Q12H take 1 Dx: Access mg tablet 10-29 t} tablet by [facility] [employer] [employer] 00:00: 00:00 oral route M79.644, 00 :00 every 12 M14.679, hours as E11.621, needed E11.40 tramadol 50 2021- No 1{table Q12H take 1 Dx: Access mg tablet 10-29 t} tablet by [facility] [employer], [facility] 00:00: 00:00 oral route M79.644, 00 :00 every 12 M14.679, hours as E11.621, needed E11.40 tramadol 50 2021- No 1{table Q12H take 1 Dx: Access mg tablet 10-29 t} tablet by [facility] [employer], [facility] 00:00: 00:00 oral route M79.644, 00 :00 every 12 M14.679, hours as E11.621, needed E11.40 tramadol 50 2021- No 1{table Q12H take 1 Dx: Access mg tablet 10-29 t} tablet by [facility] [employer], [facility] 00:00: 00:00 oral route M79.644, 00 :00 every 12 M14.679, hours as E11.621, needed E11.40 tramadol 50 2021- No 1{table Q12H take 1 Dx: Access mg tablet 10-29 t} tablet by [facility] [employer], [facility] 00:00: 00:00 oral route M79.644, 00 :00 every 12 M14.679, hours as E11.621, needed E11.40 amlodipine 2020- No take 1 Acce ss 5 mg tablet 10-29 tablet (5 He alth 00:00: 00:00 mg) by 00 :00 oral route once daily carvedilol 2020- No 1{table Q12H take 1 A ccess 12.5 mg 10-29 t} tablet by [facility] tablet 00:00: 00:00 oral route 00 [...] oral route 00 :00 every day bumetanide 2020-0 2020- No take [...] oral route 00 :00 every day bumetanide 2020-0 2020- No take [...] 3 times every day carvedilol 2020-2020- No 1{table Q12H take 1 [...] 00 :00 oral route once daily amlodipine 2020-2020- No take 1 Acce ss [...] meals Humalog 2020- No inject [facility] KwikPen -14 5-10 Units [facility]alt [facility] (U-100) 00:00: 00:00 [...] times a day before meals Humalog 2020-0 202- No inject Access KwikPen 8-06 04-14 5-10 Units Healt [facility] (U-100) 00:00: 00:00 by Insulin 100 00 :00 Subcutaneo unit/mL us route 3 subcutaneou times per s day on a medium sliding scale three times a day before meals Humalog 2020-0 2020- No inject Access KwikPen 8-14 5-10 [...] oral route 00 :00 every day lisinopril 202-0 2021- No 1{table Q1D take 1 A ccess 20 mg 10-29 t} tablet by Health tablet 00:00: 00:00 oral route 00 :00 every day atorvastati 202-0 2021- No take 1 Acc ess n 80 mg 10-29 tablet by [employer] tablet 00:00: 00:00 Oral route 00 :00 [...] Medical 10 times Center daily. aspirin 81 2021-0 Yes 81mg Take [address] [facility] 7-04 by [facility]. [facility] tablet 13:32: Medical [address] [place] [address] atorvastati Yes 80mg QD Take [address] [facility] (LIPITOR) 7-04 by mouth [facility] - 80 MG 13:32: every Medical tablet 10 evening. [facility] isosorbide Yes Chronic 60mg QD Take 60 [...] mouth [facility] - tablet 13:32: daily. [address] clopidogrel Yes 75mg QD Take [address] (PLAVIX) 75 7-04 by mouth [facility] - mg tablet 13:32: daily. Medica l [address] [place] [address] bumetanide Yes 1mg Q.5D Take 1 mg [...] by mouth. [facility] - tablet 13:32: Medical [address] [place] [address] atorvastati Yes 80mg QD Take [address] [facility] (LIPITOR) 7-04 by mouth [facility] - 80 MG 13:32: every Medical tablet 10 evening. [facility] isosorbide Yes Chronic 60mg QD Take 60 [...] mouth [facility] - tablet 13:32: daily. [address] clopidogrel Yes 75mg QD Take [address] (PLAVIX) 75 7-04 by mouth [facility] - mg tablet 13:32: daily. Medica l [facility] bumetanide Yes 1mg Q.5D Take 1 mg [...] mouth. [facility] - tablet 13:32: Medical [facility] atorvastati Yes 80mg QD Take [address] [facility] (LIPITOR) 7-04 by mouth [facility] - 80 MG 13:32: every Medical tablet 10 evening. [facility] isosorbide Yes Chronic 60mg QD Take 60 [...] mouth [facility] - tablet 13:32: daily. [address] clopidogrel Yes 75mg QD Take [address] (PLAVIX) 75 7-04 by mouth [facility] - mg tablet 13:32: daily. Medica l [address] [place] [address] bumetanide Yes 1mg Q.5D Take 1 mg [...] mouth. [facility] - tablet 13:32: Medical [facility] atorvastati Yes 80mg QD Take [address] [facility] (LIPITOR) 7-04 by mouth [facility] - 80 MG 13:32: every Medical tablet 10 evening. [facility] isosorbide Yes Chronic 60mg QD Take 60 [...] mouth [facility] - tablet 13:32: daily. [address] clopidogrel 0 Yes 75mg QD Take [address] (PLAVIX) 75 7-04 by mouth [facility] - mg tablet 13:32: daily. Medica l [address] [place] [address] bumetanide Yes 1mg Q.5D Take 1 mg [...] 7-04 by mouth. [facility] - tablet 13:32: [address] atorvastati Yes 80mg QD Take [address] [facility] (LIPITOR) 7-04 by mouth [facility] - 80 MG 13:32: every Medical tablet 10 evening. [facility] isosorbide Yes Chronic 60mg QD Take 60 [...] mouth [facility] - tablet 13:32: daily. [address] clopidogrel Yes 75mg QD Take 75 [...] mouth. [facility] - tablet 13:32: Medical [facility] atorvastati Yes 80mg QD Take 80 mg [...] mg tablet 13:32: daily. Medica l 10 [facility] bumetanide Yes 1mg Q.5D Take 1 mg [...] I St -acetaminop 7-04 tablet by [employer] - hen ([facility]CO 00:00: mouth Medica l [...] I St -acetaminop 7-04 tablet by [employer] - hen ([facility] 00:00: mouth Medica l [...] I St -acetaminop 7-04 tablet by [employer] - hen ([facility] 00:00: mouth Medica l [...] St -clavulanat 7-04 07-11 tablet by [facility] [employer] - e 00:00: 23:59 mouth 2 Medical [...] 12 (twelve) hours for 7 days. Levemir 0 No 50U Q12H inject 50 Acces s FlexTouch 6-22 unit by Health U-100 00:00: subcutaneo Insulin 100 00 us route 2 unit/mL (3 times mL) every day subcutaneou s pen Levemir 2020-0 No 50U Q12H inject 50 Acces s FlexTouch 6-22 unit by Health U-100 00:00: subcutaneo Insulin 100 00 us route 2 unit/mL (3 times mL) every day subcutaneou s pen Levemir 0 No 50U Q12H inject 50 Acces s FlexTouch 6-22 unit by [employer] U-100 00:00: subcutaneo Insulin 100 00 us route 2 unit/mL (3 times mL) every day subcutaneou s pen Levemir No 50U Q12H inject 50 Acces s FlexTouch 6-22 unit by [employer] U-100 00:00: subcutaneo Insulin 100 00 us route 2 unit/mL (3 times mL) every day subcutaneou s pen Levemir 0 No 50U Q12H inject 50 Acces s FlexTouch 6-22 unit by [employer] U-100 00:00: subcutaneo Insulin 100 00 us route 2 unit/mL (3 times mL) every day subcutaneou s pen Levemir No 50U Q12H inject 50 Acces s FlexTouch 6-22 unit by [employer] U-100 00:00: subcutaneo Insulin 100 00 us route 2 unit/mL (3 times mL) every day subcutaneou s pen Levemir No 50U Q12H inject 50 Acces s FlexTouch 6-22 unit by [employer] U-100 00:00: subcutaneo Insulin 100 00 us route 2 unit/mL (3 times mL) every day subcutaneou s pen Levemir No 50U Q12H inject 50 Acces s FlexTouch 6-22 unit by [employer] U-100 00:00: subcutaneo Insulin 100 00 us route 2 unit/mL (3 times mL) every day subcutaneou s pen Levemir 2020- No 50U Q12H inject 50 Acce ss FlexTouch 6-22 - unit by [employer] U-100 00:00: 00:00 subcutaneo Insulin 100 00 :00 us route 2 unit/mL (3 times mL) every day subcutaneou s pen Levemir 2020- No 50U Q12H inject 50 Acce ss FlexTouch 6-22 -03 unit by [employer] U-100 00:00: 00:00 subcutaneo Insulin 100 00 [...] 50 Acce ss FlexTouch 09-17 unit by [employer] U-100 00:00: 00:00 subcutaneo Insulin 100 00 :00 us route 2 unit/mL (3 times mL) every day subcutaneou s pen Levemir 2020- No 50U Q12H inject 50 Acce ss FlexTouch 09-17 unit by [employer] U-100 00:00: 00:00 subcutaneo Insulin 100 00 :00 us route 2 unit/mL (3 times mL) every day subcutaneou s pen Levemir 2020- No 50U Q12H inject 50 Acce ss FlexTouch 09-17 unit by [employer] U-100 00:00: 00:00 subcutaneo Insulin 100 00 :00 us route 2 unit/mL (3 times mL) every day subcutaneou s pen Levemir 2020- No 50U Q12H inject 50 Acce ss FlexTouch 09-17 unit by [employer] U-100 00:00: 00:00 subcutaneo Insulin 100 00 [...] mg tablet 09-17 t} tablet by [facility] 00:00: 00:00 oral route 00 :00 every day acetaminoph 2020- No 1{table Q8H take 1 Dx: Access en 300 09-17 t} tablet by [id number], [facility] mg-codeine [...] ccess mg tablet 09-17 t} tablet by [facility] 00:00: 00:00 oral route 00 [...] ccess mg tablet 09-17 t} tablet by [facility] 00:00: 00:00 oral route 00 [...] ccess mg tablet 09-17 t} tablet by [facility] 00:00: 00:00 oral route 00 [...] ccess mg tablet 09-17 t} tablet by [facility] 00:00: 00:00 oral route 00 [...] ccess mg tablet 09-17 t} tablet by [facility] 00:00: 00:00 oral route 00 [...] ccess mg tablet 09-17 t} tablet by [facility] 00:00: 00:00 oral route 00 [...] ccess mg tablet 09-17 t} tablet by [facility] 00:00: 00:00 oral route 00 [...] ccess mg tablet 09-17 t} tablet by [facility] 00:00: 00:00 oral route 00 [...] ccess mg tablet 09-17 t} tablet by [facility] 00:00: 00:00 oral route 00 [...] 00:00 oral route 00 :00 every day Maruvia 50 2020- No 1{table Q1D take 1 A ccess mg tablet 09-17 t} tablet by [facility] 00:00: 00:00 oral route 00 [...] ccess mg tablet 09-17 t} tablet by [facility] 00:00: 00:00 oral route 00 [...] ccess mg tablet 09-17 t} tablet by [facility] 00:00: 00:00 oral route 00 [...] ccess mg tablet 09-17 t} tablet by [facility] 00:00: 00:00 oral route 00 [...] ccess mg tablet 09-17 t} tablet by [facility] stacey 00:00: 00:00 oral route 00 :00 [...] ccess mg tablet 09-17 t} tablet by [facility] 00:00: 00:00 oral route 00 :00 every day acetaminoph 2020- No 1{table Q8H take 1 Dx: Access en 300 09-17- t} tablet by Dominique Laird lth mg-codeine [...] ss 5 mg tablet 09-17 tablet by [facility] 00:00: 00:00 oral route 00 :00 every day Orionuvia 50 2020- No 1{table Q1D take 1 A ccess mg tablet 09-17 t} tablet by [facility] 00:00: 00:00 oral route 00 [...] ccess mg tablet 09-17 t} tablet by [facility] 00:00: 00:00 oral route 00 :00 every day acetaminoph 2020- No 1{table Q8H take 1 Dx: Access en 300 09-17 t} tablet by oDminique Laird ltcynthia mg-codeine 00:00: 00:00 oral route M14.679, 60 [...] No inject Access KwikPen 09-17 5-10 Units [facility] (U-100) 00:00: 00:00 by Insulin 100 00 :00 Subcutaneo unit/mL us route 3 subcutaneou times per s day on a medium sliding scale three times a day before meals metolazone 2020- No take 1 Acce ss 5 mg tablet 09-17 tablet by Barry garcia 00:00: 00:00 oral route 00 :00 every day Alia 50 2020-0 202- No 1{table Q1D take 1 A ccess mg tablet 09-17- t} tablet by [facility] 00:[facility]: 00:00 oral route 00 :00 every day acetaminoph 0 202- No 1{table Q8H take 1 Dx: Access en 300 09-17- t} tablet by [id number], [facility] mg-codeine 00:00: 00:00 oral route M14.679, 60 mg 00 :00 every 8 E11.621, tablet hours as E11.40 needed Humalog 0 2020- No inject Access KwikPen 09-17 5-10 [...] route 00 :00 every day Januvia 100 202-0 2021- No 1{table Q1D take 1 Access mg tablet 5-24 06-22 t} tablet by [facility] 00:00: 00:00 oral route 00 :00 every day Januvia 100 2021-0 2021- No 1{table Q1D take 1 Access mg tablet 5-24 06-22 t} tablet by [facility] 00:00: 00:00 oral route 00 :00 every day Januvia 100 2021-0 2021- No 1{table Q1D take 1 Access mg tablet 5-24 06-22 t} tablet by [facility] 00:00: 00:00 oral route 00 :00 every day Januvia 100 2021-0 2021- No 1{table Q1D take 1 Access mg tablet 5-24 06-22 t} tablet by [facility] 00:00: 00:00 oral route 00 :00 every day Januvia 100 2021-0 2021- No 1{table Q1D take 1 Access mg tablet 5-24 06-22 t} tablet by [facility] 00:00: 00:00 oral route 00 :00 every day Januvia 100 2021-0 2021- No 1{table Q1D take 1 Access mg tablet 5-24 06-22 t} tablet by [facility] 00:00: 00:00 oral route 00 :00 every day Januvia 100 2020-0 2021- No 1{table Q1D take 1 Access mg tablet 5-24 06-22 t} tablet by [facility] 00:00: 00:00 oral route 00 :00 every day Januvia 100 2020-0 2021- No 1{table Q1D take 1 Access mg tablet 5-24 06-22 t} tablet by [facility] 00:00: 00:00 oral route 00 :00 every day Januvia 100 2020-0 2021- No 1{table Q1D take 1 Access mg tablet 5-24 06-22 t} tablet by [facility] 00:00: 00:00 oral route 00 :00 every day Januvia 100 2020-0 2021- No 1{table Q1D take 1 Access mg tablet 5-24 06-22 t} tablet by [facility] 00:00: 00:00 oral route 00 :00 every day Januvia 100 2020-0 2021- No 1{table Q1D take 1 Access mg tablet 5-24 06-22 t} tablet by [facility] 00:00: 00:00 oral route 00 :00 every day Januvia 100 2020-0 2021- No 1{table Q1D take 1 Access mg tablet 5-24 06-22 t} tablet by [facility] 00:00: 00:00 oral route 00 :00 every day Januvia 100 2020-0 2021- No 1{table Q1D take 1 Access mg tablet 5-24 06-22 t} tablet by [facility] 00:00: 00:00 oral route 00 :00 every day Januvia 100 2020-0 2021- No 1{table Q1D take 1 Access mg tablet 5-24 06-22 t} tablet by [facility] 00:00: 00:00 oral route 00 :00 every day Januvia 100 2020-0 2021- No 1{table Q1D take 1 Access mg tablet 5-24 06-22 t} tablet by [facility] 00:00: 00:00 oral route 00 :00 every day Januvia 100 2020-0 2021- No 1{table Q1D take 1 Access mg tablet 5-24 06-22 t} tablet by [facility] 00:00: 00:00 oral route 00 :00 every day Januvia 100 2020-0 2021- No 1{table Q1D take 1 Access mg tablet 5-19 09-22 t} tablet by [facility] 00:00: 00:00 oral route 00 :00 every day Joseia 100 2020-0 2021- No 1{table Q1D take 1 Access mg tablet 5-24 -22 t} tablet by [facility] 00:00: 00:00 oral route 00 :00 every day Joseia 100 2020-0 2021- No 1{table Q1D take 1 Access mg tablet 5-24 -22 t} tablet by [facility] 00:00: 00:00 oral route 00 :00 every day Alia 100 2020-0 202- No 1{table Q1D take 1 Access mg tablet 524 -22 t} tablet by [facility] 00:00: 00:00 oral route 00 [...] day to cleansed affected area Santyl 250 2021-0 No Q1D apply by Acc ess unit/gram [...] 1 Acce ss 5 mg tablet 5-20 08-03 tablet (5 [facility] 00:00: 00:00 mg) [...] 1 Acc ess n 80 mg 5-20 08- tablet by [facility] tablet 00:00: 00:00 Oral [...] 1 Acce ss 1 mg tablet 5-20 08-03 tablet (1 [facility] 00:00: 00:00 mg) [...] 1 Acce ss 5 mg tablet 5-20 08-03 tablet (5 [facility] 00:00: 00:00 mg) [...] 1 Acce ss 5 mg tablet 5-20 08-03 tablet (5 [facility] 00:00: 00:00 mg) [...] 1 Acc ess n 80 mg 5-20 08- tablet by Health tablet 00:00: 00:00 Oral [...] Q1D inject 100 Acc ess FlexTouch 5-20 09-17 unit by [employer] 00:00: 00:00 subcutaneo Insulin 100 00 :00 us route unit/mL (3 every day [facility]- No 1{table Q2D take 1 A ccess 5 mg tablet 5-20 06-22 t} tablet by [facility] 00:00: 00:00 oral route 00 :00 every 2 days lisinopril 2020-0 2021- No 1{table Q1D take 1 A ccess 20 mg 5-20 06-22 t} tablet by [employer] tablet 00:00: 00:00 oral route 00 :00 every day Levemir 2020-2020- No 100U Q1D inject 100 Acc ess FlexTouch 5-20 06-22 unit by [employer] 00:00: 00:00 subcutaneo Insulin 100 00 :00 us route unit/mL (3 every day mL) [facility] met[facility]one 2020- No 1{table Q2D take 1 A ccess 5 mg tablet 5-20 06-22 t} tablet by [facility] 00:00: 00:00 oral route 00 :00 every 2 days lisinopril 2020-0 2020- No 1{table Q1D take 1 A ccess 20 mg 5-20 06-22 t} tablet by [employer] tablet 00:00: 00:00 oral route 00 :00 every day Levemir 2020-0 1- No 100U Q1D inject 100 Acc ess FlexTouch 5-20 06-22 unit by [employer] 00:00: 00:00 subcutaneo Insulin 100 00 :00 us route unit/mL (3 every day mL) [facility] met[facility] 2020- No 1{table Q2D take [...] Acc ess FlexTouch 5-20 06-22 unit by [employer] 00:00: 00:00 subcutaneo Insulin 100 00 :00 us route unit/mL (3 every day mL) subcutaneou s pen metolazone 2020-2020- No 1{table Q2D take 1 A ccess 5 mg tablet 5-20 06-22 t} tablet by [facility] 00:00: 00:00 oral route 00 :00 every 2 days lisinopril 2020-0 202- No 1{table Q1D take 1 A ccess 20 mg 5-20 06-22 t} tablet by [employer] tablet 00:00: 00:00 oral route 00 :00 every day Levemir 2020-0 2020- No 100U Q1D inject 100 Acc ess FlexTouch 5-20 06-22 unit by [employer] 00:00: 00:00 subcutaneo Insulin 100 00 :00 us route unit/mL (3 every day mL) subcutane s pen metolazone 2020- No 1{table Q2D take 1 A ccess 5 mg tablet 5-20 06-22 t} tablet by [facility] 00:00: 00:00 oral route 00 :00 every 2 days lisinopril 2020-0 2020- No 1{table Q1D take 1 A ccess 20 mg 5-20 06-22 t} tablet by [employer] tablet 00:00: 00:00 oral route 00 :00 every day Levemir 2020-0 2021- No 100U Q1D inject 100 Acc ess FlexTouch 5-20 06-22 unit by [employer] 00:00: 00:00 subcutaneo Insulin 100 00 :00 us route unit/mL (3 every day mL) subcutaneou s pen metolazone 2020-0 202- No 1{table Q2D take 1 A [...] Acc ess FlexTouch 5-20 06-22 unit by [employer] 00:00: 00:00 subcutaneo Insulin 100 00 :00 [...] Acc ess FlexTouch 5-20 06-22 unit by [employer] 00:00: 00:00 subcutaneo Insulin 100 00 :00 us route unit/mL (3 every day [facility]2020- No [...] Acc ess FlexTouch 5-20 06-22 unit by [employer] 00:00: 00:00 subcutaneo Insulin 100 00 :00 [...] Acc ess FlexTouch 5-20 06-22 unit by [employer] 00:00: 00:00 subcutaneo Insulin 100 00 :00 us route unit/mL (3 every day mL) subcutaneou s pen metolazone 2020-1- No 1{table Q2D [...] Acc ess FlexTouch 5-20 06-22 unit by [employer] 00:00: 00:00 subcutaneo Insulin 100 00 :00 us route unit/mL (3 every day mL) [facility]-1- No 1{table Q2D take 1 A ccess 5 mg tablet 5-20 06-22 t} tablet by [facility] 00:00: 00:00 oral route 00 :00 every 2 days lisinopril 2020-0 1- No 1{table Q1D take 1 A ccess 20 mg 5-20 06-22 t} tablet by [employer] tablet 00:00: 00:00 oral route 00 :00 every day Levemir 2020-0 1- No 100U Q1D inject 100 Acc ess FlexTouch 5-20 06-22 unit by [employer] 00:00: 00:00 subcutaneo Insulin 100 00 :00 us route unit/mL (3 every day mL) [facility]-0 2020- No 1{table Q2D take 1 A ccess 5 mg tablet 5-20 06-22 t} tablet by [facility] 00:00: 00:00 oral route 00 :00 every 2 days lisinopril 2020-0 2021- No 1{table Q1D take 1 A ccess 20 mg 5-20 06-22 t} tablet by [facility] tablet 00:00: 00:00 oral route 00 :00 every day Levemir 2021-0 2020- No 100U Q1D inject 100 Acc ess FlexTouch 5-20 06-22 unit by [employer] 00:00: 00:00 subcutaneo Insulin 100 00 :00 us route unit/mL (3 every day mL) subcutaneou s pen metolazone 2020- No 1{table Q2D take 1 A ccess 5 mg tablet 5-20 06-22 t} tablet by [facility] 00:00: 00:00 oral route 00 :00 every 2 days lisinopril 2020-0 2020- No 1{table Q1D take 1 A ccess 20 mg 5-20 06-22 t} tablet by [employer] tablet 00:00: 00:00 oral route 00 :00 every day lisinopril 2020-0 2020- No 1{table Q1D take 1 A ccess 20 mg 5-20 06-22 t} tablet by [employer] tablet 00:00: 00:00 oral route 00 :00 every day Levemir 2020-0 2020- No 100U Q1D inject 100 Acc ess FlexTouch 5-20 06-22 unit by [employer] 00:00: 00:00 subcutaneo Insulin 100 00 :00 us route unit/mL (3 every day mL) subcutaneou s pen metolazone 2020- No 1{table Q2D take 1 A ccess 5 mg tablet 5-20 06-22 t} tablet by [facility] 00:00: 00:00 oral route 00 :00 every 2 days Levemir 2020-0 2020- No 100U Q1D inject 100 Acc ess FlexTouch 5-20 06-22 unit by [employer] 00:00: 00:00 subcutaneo Insulin 100 00 :00 us route unit/mL (3 every day mL) subcutaneou s pen metolazone 2020-2020- No 1{table Q2D take 1 A ccess 5 mg tablet 5-20 06-22 t} tablet by [facility] 00:00: 00:00 oral route 00 :00 every 2 days lisinopril 2020-0 2020- No 1{table Q1D take 1 A ccess 20 mg 5-20 06-22 t} tablet by [employer] tablet 00:00: 00:00 oral route 00 :00 every day Levemir 2020-0 1- No 100U Q1D inject 100 Acc ess FlexTouch 5-20 06-22 unit by [employer] 00:00: 00:00 subcutaneo Insulin 100 00 :00 us route unit/mL (3 every day [facility]-1- No 1{table Q2D take 1 A ccess 5 mg tablet 5-20 06-22 t} tablet by [facility] 00:00: 00:00 oral route 00 :00 every 2 days lisinopril 2020-0 2020- No 1{table Q1D take 1 A ccess 20 mg 5-20 06-22 t} tablet by [employer] tablet 00:00: 00:00 oral route 00 :00 every day Levemir 2020-0 1- No 100U Q1D inject 100 Acc ess FlexTouch 5-20 06-22 unit by [employer] 00:00: 00:00 subcutaneo Insulin 100 00 :00 us route unit/mL (3 every day [facility] 2020-2020- No 1{table Q2D take 1 A ccess 5 mg tablet 5-20 06-22 t} tablet by [facility] 00:00: 00:00 oral route 00 :00 every 2 days lisinopril 2020-0 1- No 1{table Q1D take 1 A ccess 20 mg 5-20 06-22 t} tablet by [employer] tablet 00:00: 00:00 oral route 00 :00 every day Levemir 2020-0 1- No 100U Q1D inject 100 Acc ess FlexTouch 5-20 06-22 unit by [employer] 00:00: 00:00 subcutaneo Insulin 100 00 :00 us route unit/mL (3 every day [facility] met[facility] 2020-0 2020- No 1{table [...] Acc ess FlexTouch 5-20 06-22 unit by [employer] U-100 00:00: 00:00 subcutaneo Insulin 100 00 [...] (3 times per mL) day [facility] morning s pen and evening [...] 00 :00 oral route once daily gabapentin 2020-2020- No 1{table Q8H take 1 [...] morning Humalog 2020- No inject [facility] KwikPen 07-04-20 5-10 Units [facility] (U-[facility]) 00:00: 00:00 [...] :00 every day to cleansed affected area lisinopriL 0 2020- No 40mg Q.5D Take [address] [facility] (Grace GARNER 04-06- by mouth 2 L ukes - ESTRIL) [...] 08:46: 00:00 daily. Medical tablet 05 :00 [facility] lisinopriL 2020- No 40mg Q.5D Take 40 [...] 08:46: 00:00 daily. Medical tablet 05 :00 [facility] lisinopriL 2020- No 40mg Q.5D Take 40 [...] 00:00 mouth Medical tablet 05 :00 daily. [facility] amLODIPine 2020- No 5mg QD Take 5 [...] tablet 05 :00 times Center daily. insulin No 50U Q.5D Inject [address] [facility] [...] 00:00 daily. Medical tablet 05 :00 Center insulin Yes 25U Q.5D Inject 25 [facility] [...] .25ug QD Take [address] [facility] (ROCALTROL) 04-06 [facility] - 0.25 MCG 00:00: (0.25 [...] [facility] (MAXIPIME[facility] 04-06-19 intravenou Siddhartha kes - MBP 2g in [...] Amount: 200 mg clindamycin 2019-03- No 300mg [id number] Take [address] [facility] (CLEOCIN) 05-21- [id number] [facility] - 300 MG 00:00: 23:59 3D (300 mg Medical capsule 00 :00 total) by Center mouth 3 (three) times daily for 7 days. clindamycin 2019-03- No 300mg [id number] Take [address] [facility] (CLEOCIN) 05-21-30 [id number] [facility] - 300 MG 00:00: 23:59 3D (300 mg Medical capsule 00 :00 total) by Center mouth 3 (three) times daily for 7 days. clindamycin 2019-03- No 300mg Q.[id number] Take [address] [facility] (CLEOCIN) 05-21 [id number] [facility] - 300 MG 00:00: 23:59 3D (300 mg Medical capsule 00 :00 total) by Center mouth 3 (three) times daily for 7 days. clindamycin 2019-03- No 300mg Q.[id number] Take [address] [facility] (CLEOCIN) 05-21 [id number] [facility] - 300 MG 00:00: 23:59 3D (300 mg Medical capsule 00 :00 total) by Center mouth 3 (three) times daily for 7 days. clindamycin 2019-03- No 300mg Q.[id number] Take [address] [facility] (CLEOCIN) 05-21 [id number] [facility] - 300 MG 00:00: 23:59 3D (300 mg Medical capsule 00 :00 total) by Center mouth 3 (three) times daily for 7 days. clindamycin 2019-03- No 300mg Q.[id number] Take [address] [facility] (CLEOCIN) 05-21 [id number] [facility] - 300 MG 00:00: 23:59 3D (300 mg Medical capsule 00 :00 total) by Center mouth 3 (three) times daily for 7 days. clindamycin 2019-03- No 300mg Q.[id number] Take [address] [facility] (CLEOCIN) 05-21 [id number] [facility] - 300 MG 00:00: 23:59 3D (300 mg Medical capsule 00 :00 total) by Center mouth 3 (three) times daily for 7 days. gabapentin 2019-03 Yes Take by [facility] (NEURONTIN) 2- mouth. [facility] - 800 MG 00:00: Medical tablet 00 [facility] lisinopriL 2019-03 Yes [facility] (PRINIVIL,Z 2- tablet (40 Siddhartha kes - ESTRIL) 40 00:00: mg) by Medic al MG tablet 00 oral route Cent er once daily gabapentin 2019-03 Yes Take by [facility] (NEURONTIN) 2-09 mouth. [facility] - 800 MG 00:00: Medical tablet 00 [facility] lisinopriL 2019-03 Yes take 1 [facility] (PRINIVIL,Z 2-09 tablet (40 Siddhartha kes - ESTRIL) 40 00:00: mg) by Medic al MG tablet 00 oral route Cent er once daily gabapentin 2019-03 Yes Take by [facility] (NEURONTIN) 2-09 mouth. [facility] - 800 MG 00:00: Medical tablet 00 [facility] lisinopriL 2019-03 Yes take 1 [facility] (PRINIVIL,Z 2-09 tablet (40 Siddhartha kes - ESTRIL) 40 00:00: mg) by Medic al MG tablet 00 oral route Cent er once daily gabapentin 2019-03 Yes Take by [facility] (NEURONTIN) 2-09 mouth. [facility] - 800 MG 00:00: Medical tablet 00 [facility] lisinopriL 2019-03 Yes take 1 [facility] (PRINIVIL,Z 2-09 tablet (40 Siddhartha kes - ESTRIL) 40 00:00: mg) by Medic al MG tablet 00 oral route Cent er once daily gabapentin 2019-03 Yes Take by [facility] (NEURONTIN) 2-09 mouth. [facility] - 800 MG 00:00: Medical tablet 00 [facility] lisinopriL 2019-03 Yes take 1 [facility] [...] - 800 MG 00:00: Medical tablet 00 [facility] lisinopriL 2019-03 Yes take 1 [facility] [...] Q8H take 1 A ccess 800 mg 2-09 04-08 t} tablet by Health tablet 00:00: 00:00 [...] for 3 [facility] U-100 00:00: 00:00 [facility] Insulin 100 00 :00 us route 2 supply unit/mL (3 times per mL) day in [facility] morning s pen and evening [...] 00 :00 1 time per day amlodipine 2019-03 No take 1 Acce [facility] [...] :00 1 time per day carvedilol 2019-03 take 1 [facility] 25 mg 05-07 [...] [address] [facility] azole-trime 12-01 rimetho tablet Siddhartah kes - thoprim 00:00: 23:59 prim} (160 [...] 160mg{t Q.5D Take [address] [facility] azole-trime -12-11 rimetho tablet Siddhartha kes - thoprim 00:00: [...] mg tabs (1tab q12 D10). HYDROcodone 2019- 2020- No 1{tbl} Take [address] -acetaminop -08 04-12 tablet by Siddhartha robertson ([facility] 00:00: 23:59 mouth Medic al 5-325) 00 :00 every 6 Center 5-325 mg (six) per tablet hours as needed for Pain for up to 7 days. Max Daily Amount: 4 tablets HYDROcodone 2019- 2020- No 1{tbl} Take 1 [facility] [...] by 00 oral route once daily gabapentin 2019-0 No 1{table Q8H take 1 Ac cess 800 mg 8-13 t} tablet by Health tablet 00:00: oral route 00 3 times every day Humalog 2019-0 No inject Access KwikPen 8-13 5-10 Units [...] No take 1 Acces s 40 mg - tablet (40 Health tablet 00:00: mg) by [...] 00 :00 oral route once daily atorvastati 2020-0 2020- No take 1 Acc [...] (3 times per mL) day in [facility] morning s pen and evening lisinopril No [...] 50 [facility] Subcutaneo Insulin [...] daily isosorbide take 1 Acce ss mononitrate 11-08 tablet (60 H [facility]alth ER 60 mg 00:00: 00:00 mg) by tablet,exte 00 :00 oral route nded once daily release 24 in the hr morning Levemir inject 50 [facility] Flex[facility] 11-[facility] 00:00 Subcutaneo Insulin 100 00 :00 us route 2 unit/mL (3 times per mL) [facility] evening lisinopril take [...] 2019- No inject 50 Acce ss FlexTouch 8-13 12-09 Units by [facility]alt [facility] U-100 00:00: 00:00 [...] 50 [facility] 11-[facility] 00:00 Subcutaneo Insulin 100 00 [...] Humalog 2019- No inject Access KwikPen 8-13 12-09 5-10 Units [facility]alt [facility] (U-100) 00:00: 00:00 [...] Q8H take 1 A ccess 800 mg 8-08 11- t} tablet by [facility] tablet 00:00: 00:00 oral route 00 :00 3 times every day gabapentin 2019-0 2020- No 1{table Q8H take 1 A ccess 800 mg 8-13 - t} tablet by Health tablet 00:00: [...] daily isosorbide take 1 Acce ss mononitrate 4-06 08-13 tablet (60 [facility]alth ER 60 mg [...] the hr morning clopidogrel No take 1 Acc ess 75 [...] 00 :00 1 time per day amlodipine take 1 Acce ss 5 mg tablet 07-02 tablet (5 He alth 00:00: 00:00 mg) by 00 :00 oral route once daily Humalog inject [facility] KwikPen 07-02 5-10 Units [facility]alt [facility] (U-100) 00:00: 00:00 by Insulin 100 00 :00 Subcutaneo unit/mL us route 3 subcutaneou times per s day on a sliding scale three times a day before meals Humalog inject Access KwikPen 07-02 5-10 Units [...] 2019-2019- No inject 34 Acce ss FlexTouch 07-02-07 Units by [facility] U-100 00:00: 00:00 Subcutaneo Insulin 100 00 [...] evening Humalog 2019- No inject Access KwikPen 04-04-06 5-10 Units [...] 2020- No inject 34 Acce ss FlexTouch 04-04-06 Units by [facility]alt [facility] U-100 00:00: 00:00 Subcutaneo Insulin 100 00 :00 us route 2 unit/mL (3 times per mL) day in the subcutaneou morning s pen and evening Humalog 2019- No inject Access KwikPen 04-04-06 5-10 Units [...] Levemir 2019- inject 34 Acce ss FlexTouch 04-04- Units [...] evening Humalog 2019- No inject Access KwikPen 04-04-06 5-10 Units [facility]alt [facility] (U-100) 00:00: 00:00 by Insulin 100 00 :00 Subcutaneo unit/mL us route 3 subcutaneou times per s day on a sliding scale three times a day before meals amlodipine 2019- take 1 Acce ss 5 mg [...] once daily Humalog No inject Access KwikPen 04-04-06 5-10 Units [facility]alt [facility] (U-100) 00:00: 00:00 by Insulin 100 00 :00 Subcutaneo unit/mL us route 3 subcutaneou times per s day on a sliding scale three times a day before meals Levemir No inject 34 Acce ss FlexTouch 04-04- [...] 00 :00 1 time per day amlodipine take 1 Acce ss [...] lisinopril take 1 Acce ss 40 mg 1-07 04-06 tablet (40 Health tablet 00:00: 00:00 mg) by 00 :00 oral route once daily isosorbide 2019- No take 1 Acce ss mononitrate 04-04 tablet (60 [facility] ER 60 mg 00:00: 00:00 mg) by tablet,exte 00 :00 oral route nded once daily release 24 in the hr morning clopidogrel 2019- No take 1 Acc ess [...] 00 :00 1 time per day metolazone take 1 Acce ss 5 mg [...] No take 1 Acce ss 40 mg 04-04-06 tablet (40 Health tablet 00:00: 00:00 mg) [...] 00 :00 2 times every day ipratropium 2019-2019- No inhale 3 A [...] 2019-2019- No inhale 3 A ccess -albuterol 1-07 01-07 milliliter He alth 0.5 mg-3 00:00: 00:00 [...] Acce ss mg tablet 07-26 tablets by [facility] 00:00: 00:00 Oral route 00 :00 1 time per day 1-3 hours before bedtime for restless legs Requip 0.5 take 2 Acce ss mg tablet 07-26 tablets by [facility] 00:00: 00:00 Oral route 00 :00 [...] route every 4 hours as needed metolazone take 1 Acce ss 5 mg tablet 07-26 tablet (5 [facility] 00:00: 00:00 mg) by 00 :00 oral route once daily lisinopril take 1 Acce ss 40 mg 07-26 tablet (40 Health tablet 00:00: 00:00 mg) by 00 :00 oral route once daily Levemir inject 34 [facility] Flex[facility] 00:00 Subcutaneo Insulin 100 00 :00 us route 2 unit/mL (3 times per mL) day in the subcutaneou morning s pen and evening isosorbide take 1 Acce ss mononitrate 07-26 tablet [...] 00 :00 1 time per day amlodipine take 1 Acce ss [...] every 4 hours as needed carvedilol 2019- take 1 Acce ss 25 mg 07-26 [...] route every 4 hours as needed metolazone No take 1 Acce ss 5 [...] to 6 doses per day Requip 0.5 2019-0 2020- No take 2 Acce ss mg tablet [...] Acce ss mg tablet 07-26 tablets by a [facility] 00:00: 00:00 Oral route 00 :00 [...] 34 Acce ss FlexTouch 07-26 [facility]: 00:00 Subcutaneo Insulin [...] Acce ss mg tablet 07-26 tablets by [facility] 00:00: 00:00 Oral route 00 :00 [...] Acces s chloride ER t} tablet by a lt 10 mEq oral route tablet,exte every day nded with food release potassium No 1{table Q1D take 1 Acces s chloride ER t} tablet by [facility] 10 mEq oral route tablet,exte every [...] Acces s chloride ER t} tablet by a lt 10 mEq oral route tablet,exte every day nded with food release potassium No 1{table Q1D take 1 Acces s chloride ER t} tablet by [facility] 10 mEq oral route tablet,exte every day nded with food release potassium No 1{table Q1D take 1 Acces s chloride ER t} tablet by a lth 10 mEq oral route tablet,exte every day nded with food release potassium No 1{table Q1D take 1 Acces s chloride ER t} tablet by a lth 10 mEq oral route tablet,exte every [...] oral route :00 every 2 days metolazone 202- No 1{table Q2D take 1 Acc ess [...] Administered Flu Health vaccine without any complications. [facility] 03/06/2020 ; Source: New Immunization Record Flu (split) (2020-03-06 Completed Note: Access or older) 00:00:00 Administered Flu Health vaccine without any complications. [facility] 03/06/2020 ; Source: New Immunization Record Flu (split) (2020-03-06 Completed Note: Access or older) 00:00:00 Administered Flu Health vaccine without any complications. [facility] 03/06/2020 ; Source: New Immunization Record Flu (split) (2020-03-06 Completed Note: Access or older) 00:00:00 Administered Flu Health vaccine without any complications. [facility] 03/06/2020 ; Source: New Immunization Record Flu (split) (2020-03-06 Completed Note: Access or older) 00:00:00 Administered Flu Health vaccine without any complications. [facility] 03/06/2020 ; Source: New Immunization Record Flu (split) (2020-03-06 Completed Note: Access or older) 00:00:00 Administered Flu Health vaccine without any complications. [facility] 03/06/2020 ; Source: New Immunization Record Flu (split) (2020-03-06 Completed Note: Access or older) 00:00:00 Administered Flu Health vaccine without any complications. [facility] 03/06/2020 ; Source: New Immunization Record Flu (split) (2020-03-06 Completed Note: Access or older) 00:00:00 Administered Flu Health vaccine without any complications. [facility] 03/06/2020 ; Source: New Immunization Record Flu (split) (2020-03-06 Completed Note: Access or older) 00:00:00 Administered Flu Health vaccine without any complications. [facility] 03/06/2020 ; Source: New Immunization Record Flu (split) (2020-03-06 Completed Note: Access or older) 00:00:00 Administered Flu Health vaccine without any complications. [facility] 03/06/2020 ; Source: New Immunization Record Flu (split) (2020-03-06 Completed Note: Access or older) 00:00:00 Administered Flu Health vaccine without any complications. [facility] 03/06/2020 ; Source: New Immunization Record Flu (split) (2020-03-06 Completed Note: Access or older) 00:00:00 Administered Flu Health vaccine without any complications. [facility] 03/06/2020 ; Source: New Immunization Record Flu (split) (2020-03-06 Completed Note: Access or older) 00:00:00 Administered Flu Health vaccine without any complications. [facility] 03/06/2020 ; Source: New Immunization Record Flu (split) (2020-03-06 Completed Note: Access or older) 00:00:00 Administered Flu Health vaccine without any complications. [facility] 03/06/2020 ; Source: New Immunization Record Flu (split) (2020-03-06 Completed Note: Access or older) 00:00:00 Administered Flu Health vaccine without any complications. [facility] 03/06/2020 ; Source: New Immunization Record Flu (split) (2020-03-06 Completed Note: Access or older) 00:00:00 Administered Flu Health vaccine without any complications. [facility] 03/06/2020 ; Source: New Immunization Record Flu (split) (2020-03-06 Completed Note: Access or older) 00:00:00 Administered Flu Health vaccine without any complications. [facility] 03/06/2020 ; Source: New Immunization Record Flu (split) (2020-03-06 Completed Note: Access or older) 00:00:00 Administered Flu Health vaccine without any complications. [facility] 03/06/2020 ; Source: New Immunization Record Flu (split) (2020-03-06 Completed Note: Access or older) 00:00:00 Administered Flu Health vaccine without any complications. [facility] 03/06/2020 ; Source: New Immunization Record Flu (split) (2020-03-06 Completed Note: Access or older) 00:00:00 Administered Flu Health vaccine without any complications. [facility] 03/06/2020 ; Source: New Immunization Record Flu (split) (2020-03-06 Completed Note: Access or older) 00:00:00 Administered Flu Health vaccine without any complications. [facility] 03/06/2020 ; Source: New Immunization Record Flu (split) (2020-03-06 Completed Note: Access or older) 00:00:00 Administered Flu Health vaccine without any complications. [facility] 03/06/2020 ; Source: New Immunization Record Flu (split) (3 2020-03-06 Completed Note: Access or older) 00:00:00 Administered Flu Health vaccine without any complications. [facility] 03/06/2020 ; Source: New Immunization Record Flu (split) (3 2020-03-06 Completed Note: Access or older) 00:00:00 Administered Flu Health vaccine without any complications. [facility] 03/06/2020 ; Source: New Immunization Record Flu (split) (2020-03-06 Completed Note: Access or older) 00:00:00 Administered Flu Health vaccine without any complications. [facility] 03/06/2020 ; Source: New Immunization Record Flu (split) (3 2020-03-06 Completed Note: Access or older) 00:00:00 Administered Flu Health vaccine without any complications. [facility] 03/06/2020 ; Source: New Immunization Record [...] [facility] 00:00:00 - [facility] Influenza 2017-03-[address] [facility] PF 5+ YR 00:00:00 - [facility] Influenza 2017-03-[address] [facility] PF 5+ YR 00:00:00 - [facility] Influenza 2017-03-[address] [facility] PF 5+ YR 00:00:00 - [facility] Influenza 2017-03-[address] [facility] PF 5+ YR 00:00:00 - [facility] Influenza 2017-03-[address] [facility] PF 5+ YR 00:00:00 - [facility] Influenza 2017-03-[address] [facility] PF 5+ YR 00:00:00 - [facility] Vital Signs Vital Name Observation Time Observation [...] height 2021-05-13 09:13:00 172.72 cm [facility] Body Weight 2021-05-13 09:13:00 111.039 kg [facility] Systolic 2021-05-13 09:13:00 134 mm[Hg] [facility] Intravascular 2021-05-13 09:13:00 90 mm[Hg] [facility] Diastolic Heart Beat 2021-05-13 09:13:00 70 /min [facility] Body Temperature 2021-05-13 09:13:00 36.50 Bernarda [facility] Body mass index 2021-05-13 09:13:00 37.22 kg/m2 [facility] Body height 2021-01-29 09:34:00 172.72 cm [facility] Body Weight 2021-01-29 09:34:00 112.672 kg [facility] Systolic 2021-01-29 09:34:00 126 mm[Hg] [facility] 2021-01-29 09:34:00 76 mm[Hg] [facility] Diastolic Heart Beat 2021-01-29 09:34:00 89 /min [facility] Body Temperature 2021-01-29 09:34:00 36.28 Bernrada [facility] Respiratory Rate 2021-01-29 09:34:00 [...] Beat 2020-10-29 08:12:00 72 /min [facility] Body Temperature 2020-10-29 08:12:00 36.28 Bernarda [facility] Respiratory Rate 2020-10-29 08:12:00 18 /min [facility] Body mass index 2020-10-29 08:12:00 39.38 kg/m2 [facility] Heart rate 2020-09-29 08:55:00 76 /min [facility] Respiratory rate 2020-09-29 08:55:00 18 /min [facility] Oxygen saturation in 2020-09-29 08:55:00 97 /min [facility] Arterial blood by Medical Ce nter Pulse oximetry Systolic blood 2020-09-29 04:00:00 134 mm[Hg] [facility] pressure [facility] Diastolic blood 2020-09-29 04:00:00 76 mm[Hg] [facility] Body temperature 2020-09-29 04:00:00 37 Bernarda [facility] Body weight 2020-09-23 13:36:00 125.646 kg [facility] BMI 2020-09-23 13:36:00 39.75 kg/m2 [facility] Body height 2020-09-22 14:00:00 177.8 cm [facility] Body height 2020-09-17 10:27:00 172.72 cm [facility] Body Weight 2020-09-17 10:27:00 129.365 kg [facility] Systolic 2020-09-17 10:27:00 122 mm[Hg] [facility] 2020-09-17 10:27:00 71 mm[Hg] [facility] Diastolic Heart Beat 2020-09-17 10:27:00 82 /min [facility] Body Temperature 2020-09-17 10:27:00 36.56 Bernarda [facility] Respiratory Rate 2020-09-17 10:27:00 18 /[facility] Body mass index 2020-09-17 10:27:00 [facility]36 [facility] 2020-08-15 15:21:00 172.72 cm [facility] Body Weight 2020-08-15 15:21:00 122.016 kg [facility] Systolic 2020-08-15 15:21:00 165 mm[Hg] [facility] 2020-08-15 15:21:00 97 mm[Hg] [facility] Diastolic Heart Beat 2020-08-15 15:21:00 86 /min [facility] Body Temperature 2020-08-15 15:21:00 36.28 Ebrnarda [facility] Respiratory Rate 2020-08-15 15:21:00 18 [...] Body mass index 2020-03-06 14:18:00 41.48 kg/m2 [facility] Body height 2019-11-09 16:08:00 172.72 [...] Body Weight 2019-04-04 14:21:00 119.295 kg [facility] Systolic 2019-04-04 14:21:00 161 mm[Hg] [...] [facility] 2015-05-03 16:39:00 104 mm[Hg] [facility] Diastolic Body height 2015-05-03 15:36:00 68.00 [in_us] [facility] Patient Body Weight 2015-05-03 15:36:00 245.00 [lb_av] [facility] Systolic 2015-05-03 15:36:00 195 mm[Hg] [facility] 2015-05-03 15:36:00 100 mm[Hg] [facility] Diastolic Heart Beat 2015-05-03 15:36:00 75 /min [facility] Body Temperature 2015-05-03 15:36:00 97.90 [degF] [facility] Respiratory Rate 2015-05-03 15:36:00 20 /min [facility] Body mass index 2015-05-03 15:36:00 37.20 kg/m2 [facility] Health Procedures Procedure Date / Time Performing Clinician Source Performed FOLLOW-UP 2021-05-20 00:00:00 [facility] PHONE CALL TO 2021-05-20 00:00:00 [facility] SHORT TERM- SCREENED, 2021-05-20 00:00:00 [facility] REFUSED PHONE CALL TO 2021-05-16 00:00:00 [facility] SHORT TERM - SCREENED - 2021-05-15 00:00:00 [facility] Health QUALIFIED PHONE CALL TO 2021-05-15 00:00:00 [facility] SHORT TERM - SCREENED - 2021-05-14 00:00:00 [facility] Health QUALIFIED SHORT TERM - COOR/HUGO 2021-05-14 00:00:00 [facility] Health SHORT TERM PATIENT AT ER 2021-05-14 00:00:00 [facility] Health SINCE LAST VISIT GLUCOSE BLOOD TEST 2021-05-13 00:00:00 [facility] OFFICE/OUTPATIENT VISIT 2021-05-13 00:00:00 [facility] EST OFFICE/OUTPATIENT VISIT 2021-01-29 00:00[facility] EST COMPREHEN METABOLIC PANEL 2021-01-29 00:00:00 [facility] URINALYSIS AUTO W/SCOPE 2021-01-29 00:00:00 [facility] UR ALBUMIN QUANTITATIVE 2021-01-29 00:00:00 [facility] GLYCOSYLATED HEMOGLOBIN 2021-01-29 00:00:00 [facility] TEST VITAMIN D 25 HYDROXY 2021-01-29 00:00:00 [facility] ASSAY OF NATRIURETIC 2021-01-29 00:00:00 [facility] PEPTIDE ASSAY OF BLOOD/URIC ACID 2021-01-29 00:00:00 Acc [facility] Health ASSAY OF PHOSPHORUS 2021-01-29 00:00:00 [facility] RBC SED RATE AUTOMATED 2021-01-29 00:00:00 [facility] ASSAY OF MAGNESIUM 2021-01-29 00:00:00 [facility] C-REACTIVE PROTEIN 2021-01-29 00:00:00 [facility] GLUCOSE BLOOD TEST 2020-12-03 00:00:00 [facility] OFFICE/OUTPATIENT VISIT 2020-12-03 00:00[facility] EST Insulin injection 2020-12-03 00:00:00 [facility] THER/PROPH/DIAG INJ SC/IM 2020-12-03 00:00:00 [facility] COMPREHEN METABOLIC PANEL 2020-12-03 00:00:00 [facility] Health ASSAY OF NATRIURETIC 2020-12-03 00:00:00 [facility] PEPTIDE ASSAY OF PHOSPHORUS 2020-12-03 00:00:00 [facility] GLUCOSE BLOOD TEST 2020-10-29 00:00:00 [facility] OFFICE/OUTPATIENT VISIT 2020-10-29 00:00[facility] EST COMPLETE CBC W/AUTO DIFF 2020-10-29 00:00:00 [facility] Health WBC COMPREHEN METABOLIC PANEL 2020-10-29 00:00:00 [facility] URINALYSIS AUTO W/SCOPE 2020-10-29 00:00:00 [facility] LIPID PANEL 2020-10-29 00:00:00 [facility] GLYCOSYLATED HEMOGLOBIN 2020-10-29 00:00:00 [facility] TEST VITAMIN D 25 HYDROXY 2020-10-29 00:00:00 [facility] ASSAY OF NATRIURETIC 2020-10-29 00:00:00 [facility] PEPTIDE ASSAY OF MAGNESIUM 2020-10-29 00:00:00 [facility] ASSAY OF PARATHORMONE 2020-10-29 00:00:00 [facility] HAND, MINIMUM THREE VIEWS, 2020-10-29 00:00:00 A [facility] RADIOLOGIC EXAM CBC W/PLT COUNT & AUTO 2020-09-29 04:29:00 Hensley, Gretchen [facility] BASIC METABOLIC PANEL (7) 2020-09-29 04:29:00 Gretchen Hensley CH, I [facility] MAGNESIUM 2020-09-29 04:29:00 Ayden [facility] CBC W/PLT COUNT & AUTO 2020-09-29 04:29:00 Gretchen Hensley [facility] POCT-GLUCOSE METER 2020-09-28 17:27:00 Shieh, [facility] POCT-GLUCOSE METER 2020-09-28 12:49:00 Shieh, [facility] POCT-GLUCOSE METER 2020-09-28 05:58:00 Shieh, [facility] CBC W/PLT COUNT & AUTO 2020-09-28 04:49:00 Ayden [facility] BASIC METABOLIC PANEL (7) 2020-09-28 04:49:00 Gretchen Hensley CH, I [facility] MAGNESIUM 2020-09-28 04:49:00 Hensley [facility] CBC W/PLT COUNT & AUTO 2020-09-28 04:49:00 HensleyGretchen [facility] POCT-GLUCOSE METER 2020-09-27 20:57:00 Shieh, [facility] POCT-GLUCOSE METER 2020-09-27 19:07:00 Shieh, [facility] POCT-GLUCOSE METER 2020-09-27 12:26:00 Shieh, [facility] POCT-GLUCOSE METER 2020-09-27 06:36:00 Shieh, [facility] CBC W/PLT COUNT & AUTO 2020-09-27 03:45:00 [facility]OL[facility] (7) 2020-09-27 03:45:[address] [facility] MAGNESIUM 2020-09-27 03:45:00 Gretchen Hensley [facility] CBC W/PLT COUNT & AUTO 2020-09-27 03:45:00 Gretchen Hensley [facility] POCT-GLUCOSE METER 2020-09-26 23:12:[address] [facility] POCT-GLUCOSE METER 2020-09-26 18:20:[address] [facility] POCT-GLUCOSE METER 2020-09-26 13:31:[address] [facility] XR FOOT 3 VIEWS LEFT 2020-09-26 08:38:00 Laura Nguyen [facility] POCT-GLUCOSE METER 2020-09-26 08:34:[address] [facility] ANAEROBIC CULTURE 2020-09-26 08:07:57 Laura Nguyen [facility] SURGICALLY OBTAINED 2020-09-26 08:07:57 Laura Nguyen [facility] - CULTURE + GRAM STAIN Medical [facility] ter ANAEROBIC CULTURE 2020-09-26 08:02:39 Laura Nguyen [facility] SURGICALLY OBTAINED 2020-09-26 08:02:39 Laura Nguyen [facility] - CULTURE + GRAM STAIN Medical [facility] ter TISSUE EXAM 2020-09-26 07:56:00 Laura Nguyen [facility] AMPUTATION,TOE 2020-09-26 07:12:00 Laura Nguyen [facility] CBC W/PLT COUNT & AUTO 2020-09-26 04:37:00 Gretchen Hensley [facility] BASIC METABOLIC PANEL (7) 2020-09-26 04:37:00 Gretchen Hensley Awais [facility] MAGNESIUM 2020-09-26 04:37:00 Ayden [facility] B-TYPE NATRIURETIC FACTOR 2020-09-26 04:37:00 Parish [facility] (BNP) [facility] CBC W/PLT COUNT & AUTO 2020-09-26 04:37:00 Ayden [facility] POCT-GLUCOSE METER 2020-09-25 21:10:[address] [facility] POCT-GLUCOSE METER 2020-09-25 16:15:[address] [facility] POCT-GLUCOSE METER 2020-09-25 11:21:[address] [facility] POCT-GLUCOSE METER 2020-09-25 06:02:00 Hensley [facility] CBC W/PLT COUNT & AUTO 2020-09-25 04:44:00 Ayden [facility] BASIC METABOLIC PANEL (7) 2020-09-25 04:44:00 Ayden [facility] MAGNESIUM 2020-09-25 04:44:00 Ayden [facility] CBC W/PLT COUNT & AUTO 2020-09-25 04:44:00 [facility] POCT-GLUCOSE METER 2020-09-24 20:36:00 [facility] POCT-GLUCOSE METER 2020-09-24 17:37:00 [facility] HC ARTERIAL DOPPLER LEGS 2020-09-24 13:22:[address] [facility] POCT-GLUCOSE METER 2020-09-24 06:34:00 Ayden [facility] CBC W/PLT COUNT & AUTO 2020-09-24 05:11:00 [facility] BASIC METABOLIC PANEL (7) 2020-09-24 05:11:00 Ayden [facility] MAGNESIUM 2020-09-24 05:11:00 [facility] PTH, INTACT 2020-09-24 05:11:00 Rene Early [facility] VITAMIN D, 25-HYDROXY 2020-09-24 05:11:00 Nneka, [facility] CBC W/PLT COUNT & AUTO 2020-09-24 05:11:00 Gretchen Hensley [facility] IRON, TIBC, % SAT. 2020-09-24 05:10:00 Nneka, [facility]WITHOUT FERRITIN[facility] 2020-09-24 05:10:00 Nneka, [facility] POCT-GLUCOSE METER 2020-09-23 21:25:00 Gretchen Hensley [facility] US RENAL COMPLETE 2020-09-23 20:30:00 Nneka, [facility] URINALYSIS W/ REFLEX URINE 2020-09-23 16:58:00 Nneka, Rene jeffries [facility] SODIUM, RANDOM URINE 2020-09-23 16:58:00 Nneka, [facility] Vikash [facility] CHLORIDE, RANDOM URINE 2020-09-23 16:58:00 Nneka, max Suh I [facility] POTASSIUM, RANDOM URINE 2020-09-23 16:58:00 Nneka, max Suh [facility] UREA NITROGEN, RANDOM 2020-09-23 16:58:00 Nneka, [facility] CREATININE, RANDOM URINE 2020-09-23 16:58:00 [facility]ka, [facility] PROTEIN, RANDOM URINE 2020-09-23 16:58:00 Nneka, [facility] POCT-GLUCOSE METER 2020-09-23 16:20:00 Ayden [facility] POCT-GLUCOSE METER 2020-09-23 11:40:00 Ayden [facility] 2D ECHO W/ DOPPLER 2020-09-23 08:00:54 Ayden [facility] (CW/PW/COLOR) [facility] POCT-GLUCOSE METER 2020-09-23 07:58:00 [facility] XR FOOT 3 VIEWS LEFT 2020-09-23 07:33:00 Laura Nguyen [facility] CBC W/PLT COUNT & AUTO 2020-09-23 04:51:00 [facility] BASIC METABOLIC PANEL (7) 2020-09-23 04:51:[address] [facility] MAGNESIUM 2020-09-23 04:51:00 [facility] PHOSPHORUS 2020-09-23 04:51:00 Ayden [facility] CBC W/PLT COUNT & AUTO 2020-09-23 04:51:00 [facility] POCT-GLUCOSE METER 2020-09-22 20:46:00 [facility] 2020-09-22 17:01:00 [facility] SARS-COV2/RT-PCR ([facility] & 2020-09-22 10:50:00 Ayden [facility] - REF LABS) [facility] B-TYPE NATRIURETIC FACTOR 2020-09-22 06:54:00 David Riddle [facility] (BNP) [facility] BASIC METABOLIC PANEL (7) 2020-09-22 06:54:00 David Riddle [facility] CBC W/PLT COUNT & AUTO 2020-09-22 06:54:00 David Riddle [facility] PT/APTT 2020-09-22 06:54:00 David Riddle [facility] TROPONIN I 2020-09-22 06:54:00 David Riddle [facility] CBC W/PLT COUNT & AUTO 2020-09-22 06:54:00 David Riddle [facility] ED ECG INTERPRETATION 2020-09-22 06:40:53 David Riddle [facility] XR CHEST 1 VIEW PORTABLE / 2020-09-22 06:36:00 David Riddle [facility] BEDSIDE [facility] REPORT OF PROCEDURE - 2020-09-22 00:00:00 ProviderMolina [facility] ENDOSCOPY SCAN Scanning [facility] GLUCOSE BLOOD TEST 2020-09-17 00:00:00 Access [facility] [...] COUNT & AUTO 2020-04-30 18:40:00 David Riddle [facility] LACTIC ACID, VENOUS 2020-04-30 18:40:00 David Riddle CH I [facility] COMPREHENSIVE METABOLIC 2020-04-30 18:40:[address] [facility] PROTHROMBIN TIME/INR 2020-04-30 18:40:00 David Riddle [facility] TYPE AND SCREEN, AUTOMATED 2020-04-30 18:40:00 David Riddle [facility] CBC W/PLT COUNT & AUTO 2020-04-30 18:40:00 David Riddle [facility] GLUCOSE BLOOD TEST 2020-04-26 00:00:00 [facility] OFFICE/OUTPATIENT VISIT 2020-04-26 00:00:00 [facility] EST POCT-GLUCOSE METER 2020-04-06 08:02:00 Frandy Lugo [facility] BASIC METABOLIC PANEL (7) 2020-04-06 04:26:00 Frandy Lugo [facility] CBC W/PLT COUNT & AUTO 2020-04-06 04:26:00 Frandy Lugo [facility] CBC W/PLT COUNT & AUTO 2020-04-06 04:26:00 Frandy Lugo [facility] POCT-GLUCOSE METER 2020-04-05 22:06:00 Frandy Lugo [facility] POCT-GLUCOSE METER 2020-04-05 15:18:00 Frandy Lugo [facility] POCT-GLUCOSE METER 2020-04-05 11:37:00 Frandy Lugo [facility] IR PICC LINE PLACEMENT 2020-04-05 11:14:00 Frandy Lugo [facility] OLDER THAN 5 YRS [facility] POCT-GLUCOSE METER 2020-04-05 09:23:00 Frandy Lugo [facility] POCT-GLUCOSE METER 2020-04-05 07:59:00 Frandy Lugo [facility] BASIC METABOLIC PANEL (7) 2020-04-05 04:40:00 Frandy Lugo [facility] CBC W/PLT COUNT & AUTO 2020-04-05 04:40:00 Frandy Lugo [facility] CBC W/PLT COUNT & AUTO 2020-04-05 04:40:00 Frandy Lugo [facility] VANCOMYCIN LEVEL, TROUGH 2020-04-04 23:37:00 Stephane Echavarria I [facility] POCT-GLUCOSE METER 2020-04-04 21:14:00 Frandy Lugo [facility] POCT-GLUCOSE METER 2020-04-04 15:41:00 Frandy Lugo [facility] POCT-GLUCOSE METER 2020-04-04 11:36:00 Frandy Lugo [facility] POCT-GLUCOSE METER 2020-04-04 07:45:00 Frandy Lugo [facility] PROTEIN ELECTROPHORESIS, 2020-04-04 05:23:00 Keven Tiwari [facility] PTH, INTACT 2020-04-04 05:23:00 Keven Tiwari [facility] BASIC METABOLIC PANEL (7) 2020-04-04 05:23:00 Frandy Lugo [facility] CBC W/PLT COUNT & AUTO 2020-04-04 05:23:00 Frandy Lugo [facility] CBC W/PLT COUNT & AUTO 2020-04-04 05:23:00 Frandy Lugo [facility] POCT-GLUCOSE METER 2020-04-03 21:31:00 Frandy Lugo [facility] KAPPA / LAMBDA LIGHT 2020-04-03 17:10:00 Keven Tiwari [facility] LAB HIV-1 AG W/HIV-1&2 2020-04-03 17:10:00 Keven Tiwari I [facility] HEPATITIS PANEL, ACUTE 2020-04-03 17:10:00 Keven Tiwari [facility] CBC W/PLT COUNT & AUTO 2020-04-03 17:10:00 Keven Tiwari [facility] BASIC METABOLIC PANEL (7) 2020-04-03 17:10:00 Frandy Lugo [facility] CBC W/PLT COUNT & AUTO 2020-04-03 17:10:00 Keven Tiwari [facility] POCT-GLUCOSE METER 2020-04-03 16:05:00 Frandy Lugo [facility] POCT-GLUCOSE METER 2020-04-03 11:34:00 Frandy Lugo [facility] PROTEIN, RANDOM URINE 2020-04-03 10:52:00 [facility] SODIUM, RANDOM URINE 2020-04-03 10:39:00 Frandy Lugo [facility] CREATININE, RANDOM URINE 2020-04-03 10:39:[address] [facility] UREA NITROGEN, RANDOM 2020-04-03 10:39:[address] [facility] URINALYSIS W/ MICROSCOPIC 2020-04-03 10:39:00 Frandy Lugo [facility] B-TYPE NATRIURETIC FACTOR 2020-04-03 10:20:[address] [facility] (BNP) [facility] US RENAL COMPLETE 2020-04-03 08:45:00 Frandy Lugo [facility] POCT-GLUCOSE METER 2020-04-03 07:27:00 [facility] CBC (HEMOGRAM ONLY) 2020-04-03 04:48:00 [facility]OLIC PAN[facility] (7) 2020-04-03 04:48:00 Lilliam [facility] PHOSPHORUS 2020-04-03 04:48:00 [facility] VANCOMYCIN LEVEL, TROUGH 2020-04-02 22:02:00 Jazmin Willard [facility] POCT-GLUCOSE METER 2020-04-02 21:17:[address] [facility] [address] LOWER EXTREMITY WITHOUT 2020-04-02 17:38:[address] [facility] POCT-GLUCOSE METER 2020-04-02 15:51:00 [facility] POCT-GLUCOSE METER 2020-04-02 11:43:00 [facility] CBC (HEMOGRAM ONLY) 2020-04-02 06:31:00 [facility] BASIC METABOLIC PANEL (7) 2020-04-02 06:31:00 Lilliam [facility] POCT-GLUCOSE METER 2020-04-01 15:37:00 [facility] ANAEROBIC CULTURE 2020-04-01 13:30:14 Patrick [facility] SURGICALLY OBTAINED 2020-04-01 13:30:14 Patrick [facility] - CULTURE + GRAM STAIN Medical Matty ter ANAEROBIC CULTURE 2020-04-01 13:21:05 [facility] SURGICALLY OBTAINED 2020-04-01 13:21:05 Patrick [facility] - CULTURE + GRAM STAIN Medical Matty ter TISSUE EXAM 2020-04-01 13:12:00 Patrick [facility] POCT-GLUCOSE METER 2020-04-01 12:48:00 [facility] DEBRIDEMENT/I&D,WOUND 2020-04-01 11:52:00 Patrick [facility] POCT-GLUCOSE METER 2020-04-01 11:37:00 [facility] ECG 12-LEAD 2020-04-01 08:42:02 Unknown, Hl7 [facility] ECG 12-LEAD 2020-04-01 08:42:02 Unknown, Hl7 [facility] POCT-GLUCOSE METER 2020-04-01 07:24:00 [facility] BASIC METABOLIC PANEL (7) 2020-04-01 03:58:00 Lilliam [facility] POCT-GLUCOSE METER 2020-03-31 20:42:00 [facility] POCT-GLUCOSE METER 2020-03-31 15:27:00 [facility] POCT-GLUCOSE METER 2020-03-31 11:22:00 Lilliam, Ray [facility] POCT-GLUCOSE METER 2020-03-31 07:18:00 [facility] BASIC METABOLIC PANEL (7) 2020-03-31 04:47:00 [facility] HEMOGLOBIN A1C 2020-03-31 04:47:00 [facility] CBC W/PLT COUNT & AUTO 2020-03-31 04:47:00 [facility] CBC W/PLT COUNT & AUTO 2020-03-31 04:47:00 [facility] POCT-GLUCOSE METER 2020-03-30 21:59:00 [facility] XR FOOT 3 VIEWS LEFT 2020-03-30 21:05:00 [facility] WOUND CULTURE + GRAM STAIN 2020-03-30 20:54:00 [facility] SARS-COV2/RT-PCR ([facility] & 2020-03-30 20:50:00 [facility]) [facility] BLOOD CULTURE 2020-03-30 20:49:00 [facility] CBC W/PLT COUNT & AUTO 2020-03-30 20:49:[address] [facility] BASIC METABOLIC PANEL (7) 2020-03-30 20:49:00 [facility] CBC W/PLT COUNT & AUTO 2020-03-30 20:49:[address] [facility] CARDIAC CATH REPORT - SCAN 2020-03-30 00:00:00 Provider [facility] REPORT OF PROCEDURE - 2020-03-30 00:00:00 Provider [facility] ENDOSCOPY SCAN Scanning [facility] BLOOD CULTURE 2020-03-20 01:07:00 David Riddle [facility] LACTIC ACID, VENOUS 2020-03-20 01:07:00 David Riddle CH I [facility] CBC W/PLT COUNT & AUTO 2020-03-20 00:55:00 David Riddle [facility] BASIC METABOLIC PANEL (7) 2020-03-20 00:55:00 David Riddle [facility] C-REACTIVE PROTEIN 2020-03-20 00:55:00 David Riddle [facility] CBC W/PLT COUNT & AUTO 2020-03-20 00:55:00 David Riddle [facility] BLOOD CULTURE 2020-03-20 00:54:00 David Riddle [facility] XR FOOT 3 VIEWS LEFT 2020-03-20 00:37:00 David Riddle HI [facility] GLUCOSE BLOOD TEST 2020-03-06 00:00:00 Access [facility] Insulin injection 2020-03-06 00:00:00 Access [facility] THER/PROPH/DIAG INJ SC/IM 2020-03-06 00:00:00 Ac [...] INCISION AND DRAINAGE 2019 07:17:11 Tyshawn Serra [facility] GLUCOSE BLOOD TEST 2019-11-09 00:00:00 Access He [...] s - Test 00:00:00 (procedure) [code = [facility] 86993898] Future Scheduled 2023-03-[address] [facility] 00:00:00 (procedure) [code = [facility] 70867706] Future Scheduled 2023-03-[address] [facility] Test 00:00:00 (procedure) [code = [facility] 25942260] Future Scheduled 2023-03-[address] [facility] Test 00:00:00 (procedure) [code = [facility] 23856088] Future Scheduled 2023-03-[address] [facility] Test 00:00:00 (procedure) [code = [facility] 64775573] Future Scheduled 2023-03-[address] [facility] Test 00:00:00 (procedure) [code = [facility] 29663757] Future Scheduled 2023-03-[address] Test 00:00:00 (procedure) [code = [facility] 91188413] Future Scheduled 2021-09-[address] [facility] 00[facility]00[facility]00 examination Medical Center (regime/therapy) [code = 830330486] Future Scheduled 2021-09-[address] [facility] 00:00[facility]00 examination Medical Center (regime/therapy) [code = 320016185] Future Scheduled 2021-09-[address] [facility] 00:00[facility]00 examination Medical Center (regime/therapy) [code = 411481564] Future Scheduled 2021-09-[address] [facility] 00:00:00 examination Medical Center (regime/therapy) [code = 358889730] Future Scheduled 2021-09-[address] [facility] 00:00:00 examination Medical Center (regime/therapy) [code = 771450765] Future Scheduled 2021-09-[address] [facility] Test 00:00:00 examination Medical Center (regime/therapy) [code = 359485922] Future Scheduled 2021-09-[address] [facility] Test 00:00:00 examination Medical Center (regime/therapy) [code = 274750052] Future Scheduled 2020-11-27 INFLUENZA VACCINE (#1) C [...] 00:00:00 measurement Medical Center (procedure) [code = 48528239] Future Scheduled 2020-06-[address] [facility] 00[facility]00 measurement [facility] Center (procedure) [code = 73060065] Future Scheduled 2020-06-[address] [facility] Test 00:00:00 measurement Medical Center (procedure) [code = 21394004] Future Scheduled 2020-06-[address] [facility] Test 00:00:00 measurement Medical Center (procedure) [code = 83963746] Future Scheduled 2020-06-[address] [facility] Test 00:00:00 measurement Medical Center (procedure) [code = 69486118] Future Scheduled 2020-06-[address] [facility] Test 00:00:00 measurement Medical Center (procedure) [code = 45689222] Future Scheduled 2020-06-[address] [facility] Test 00:00:00 measurement Medical Center (procedure) [code = 72582556] Future Scheduled 2018-06-11 Urine screening [facility] Test 00:00:00 protein (procedure) Medical Center [code = 673868648] Future Scheduled 2018-06-11 Urine screening [facility] Test 00:00:00 protein (procedure) Medical Center [code = 640790333] Future Scheduled 2018-06-11 Urine screening [facility] Test 00:00:00 protein (procedure) Medical Center [code = 610753182] Future Scheduled 2018-06-11 Urine screening [facility] Test 00:00:00 protein (procedure) Medical Center [code = 770292550] Future Scheduled 2018-06-11 Urine screening for [facility] Test 00:00:00 protein (procedure) Medical Center [code = 137424072] Future Scheduled 2018-06-11 Urine screening for [facility] Test 00:00:00 protein (procedure) Medical Center [code = 504561820] Future Scheduled 2018-06-11 Urine screening [facility] Test 00:00:00 protein (procedure) Medical Center [code = 899684564] Future Scheduled 1992 DTAP/TDAP/TD VACCINES CH I [...] Medica l Center colon (procedure) [code = 681730503] Future Scheduled [address] [facility] 00:00:00 malignant neoplasm of [facility] colon (procedure) [code = 457858154] Future Scheduled [address] [facility] Test 00:00:00 [facility] colon (procedure) [code = 699637243] Future Scheduled [address] [facility] Test 00:00:00 [facility] colon (procedure) [code = 292130549] Future Scheduled [address] [facility] 00:00:00 [facility] colon (procedure) [code = 444394963] Future Scheduled [address] [facility] 00:00:00 [facility] colon (procedure) [code = 966067021] Future Scheduled [address] Test 00:00:00 [facility] colon (procedure) [code = 369700901] Encounters Start End Encounter Admission Attending Care Care Encounter Source Date/Time Date/Time Type Type Clinicians Facility Department ID 2021-06-20 Outpatient [facility] [id number] [place] 17:29:31 [id number] [facility] 2020-05-[address] [facility] [id number] [facility] 09:38:00 -[id number] [facility] 2020-05-[address] [facility] [id number] [facility] 14:02:00 -[id number] [facility] 2021-05-05 2021-06-05 Outpatient Neida NGUYEN [facility] [id number] 09:28:00 23:59:00 [facility] 2021-05-20 2021-05-20 Outpatient YANDY LAWSON [facility] [id number] Access 15:35:00 15:35:00 Health 2021-05-20 2021-05-20 Outpatient YANDY LAWSON [facility] [id number] Access 15:35:00 15:35:00 [id number] Health [id number] 2021-05-16 2021-05-16 Outpatient YANDY LAWSON [facility] [id number] Access 12:33:00 12:33:00 Health 2021-05-16 2021-05-16 Outpatient YANDY LAWSON [facility] [id number] Access 12:33:00 12:33:00 [id number] Health [id number] [id number] 2021-05-15 2021-05-15 Outpatient YANDY LAWSON [facility] [id number] Access 08:15:00 08:15:00 Health 2021-05-15 2021-05-15 Outpatient YANDY LAWSON [facility] [id number] Access 08:15:00 08:15:00 [id number] Health [id number] [id number] 2021-05-14 2021-05-14 Outpatient SHELBY [facility] [id number] Access 08:39:00 08:39:00 SAMANTHA Barretot h 2021-05-14 2021-05-14 [facility] [id number] Access 08:39:00 08:39:00 SAMANTHA [id number] Health [id number] 2021-05-13 2021-05-13 Outpatient DIANELTAC, LOCATED [facility] [id number] Access 09:00:00 09:00:00 [facility] 2021-05-13 2021-05-13 [facility] [id number] Access 09:00:00 09:00:00 PATIENT MIRTA 22-4926-a4f [id number] Health VISIT EST [id number] alexander [id number] 2021-05-12 2021-05-12 Outpatient DIANELTAC, [facility] [id number] Access 07:26:00 07:26:00 [facility] 2021-05-12 2021-05-12 [facility] [id number] Access 07:26:00 07:26:00 MIRTA [id number] [facility] [id number] 2021-05-05 Outpatient Neida NGUYEN [facility] [id number] 10:26:00 23:59:00 [facility] 2021-05-01 2021-05-01 Outpatient DIANELTAC, [facility] [id number] Access 11:26:00 11:26:00 [facility] 2021-05-01 2021-05-01 [facility] [id number] Access 11:26:00 11:26:00 [facility] 22-4926-a4f [id number] Health [id number] alexander [id number] 2021-04-02 2021-04-02 Outpatient DIANE, [facility] [id number] Access 11:59:00 11:59:00 [facility] 2021-04-02 2021-04-02 Outpatient DIANE, [facility] [id number] Access 11:59:00 11:59:00 [facility] 22-4926-a4f [id number] Health [id number] alexander [id number] 2021-03-27 2021-03-27 Outpatient DIANE, [facility] [id number] Access 08:12:00 08:12:00 [facility] 2021-03-27 2021-03-27 [facility] [id number] Access 08:12:00 08:12:00 [facility] 22-4926-a4f [id number] Health [id number] alexander [id number] 2021-02-05 2021-02-05 Outpatient NURSE, [facility] [id number] Access 08:34:00 08:34:00 NURSE [facility] 2021-02-05 2021-02-05 Outpatient NURSE, [facility] [id number] Access 08:34:00 08:34:00 NURSE 22-4926-a4f [id number] Health [id number] alexander [id number] 2021-01-31 Outpatient DIANE, [facility] [id number] Access 12:07:00 12:07:00 [facility] 2021-01-31 2021-01-31 [facility] [id number] Access 12:07:00 12:07:00 [facility] [id number] [facility] [id number] 2021-01-29 2021-01-29 Outpatient DIANELTAC, [facility] [id number] Access 10:00:00 10:00:00 [facility] 2021-01-29 2021-01-29 OFFICE/OUT DIANE, [facility] [id number] Access 10:00:00 10:00:00 PATIENT MIRTA 22-4926-a4f [id number] Health VISIT EST [id number] alexander [id number] 2021-01-06 2021-01-06 Outpatient OSEI, [facility] [id number] Access 10:24:00 10:24:00 [facility] 2021-01-06 2021-01-06 Outpatient OSEI, [facility] [id number] Access 10:24:00 10:24:00 [facility] 22-4926-a4f [id number] [facility] [id number] alexander [id number] 2020-12-11 2020-12-11 Outpatient OSEI, [facility] [id number] Access 14:09:00 14:09:00 [facility] 2020-12-11 2020-12-11 Outpatient OSEI, [facility] [id number] Access 14:09:00 14:09:00 [facility] [id number] [facility] [id number] 2020-12-11 2020-12-11 Outpatient NURSE, [facility] [id number] Access 13:49:00 13:49:00 [facility] 2020-12-11 2020-12-11 Outpatient NURSE, [facility] [id number] Access 13:49:00 13:49:00 NURSE 22-4926-a4f [id number] Health [id number] alexander [id number] 2020-12-06 2020-12-06 Outpatient DIANE, [facility] [id number] Access 10:17:00 10:17:00 [facility] 2020-12-06 2020-12-06 Outpatient DIANE, [facility] [id number] Access 10:17:00 10:17:00 [facility] 22-4926-a4f [id number] Health [id number] alexander [id number] 2020-11-04 2020-12-05 Outpatient Neida NGUYEN [facility] [id number] 09:15:00 23:59:00 [facility] 2020-12-03 2020-12-03 Outpatient CONTRERAS, [facility] [id number] Access 09:00:00 09:00:00 [facility] 2020-12-03 2020-12-03 [facility] [id number] Access 09:00:00 09:00:00 PATIENT MIRTA 22-4926-a4f [id number] Health VISIT EST [id number] alexander [id number] 2020-12-03 Outpatient CONTRERASLTAC, [facility] [id number] Access 00:00:00 00:00:00 [facility] 2020-12-03 2020-12-03 [facility] [id number] Access 00:00:00 00:00:00 [facility] [id number] Health [id number] 2020-10-07 2020-11-06 Outpatient Neida [facility]GUYEN [facility] [id number] 08:58:00 15:34:00 [facility] 2020-11-02 2020-11-02 Outpatient CONTRERASLTAC, [facility] [id number] Access 10:08:00 10:08:00 [facility] 2020-11-02 2020-11-02 [facility] [id number] Access 10:08:00 10:08:00 [facility] 22-4926-a4f [id number] Health [id number] alexander [id number] 2020-10-29 2020-10-29 Outpatient Neida CONTRERAS [facility] [id number] [place] 10:49:00 23:59:00 [facility] 2020-10-29 2020-10-29 Outpatient DIANELTAC, [facility] [id number] Access 08:30:00 08:30:00 [facility] 2020-10-29 2020-10-29 [facility] [id number] Access 08:30:00 08:30:00 PATIENT [facility] 22-4926-a4f [id number] Health VISIT EST [id number] alexander [id number] 2020-10-01 2020-10-01 Outpatient DIANELTAC, [facility] [id number] Access 13:25:00 13:25:00 [facility] 2020-10-01 2020-10-01 [facility] [id number] Access 13:25:00 13:25:00 [facility] 22-4926-a4f [id number] Health [id number] alexander [id number] 2020-09-29 Hospital ER David Riddle [facility] [id number] [facility] [address] 06:13:00 13:20:00 Encounter Gretchen Hensley [facility] 2020-09-26 2020-09-26 Surgery Patrick [facility] [id number] [facility] 07:00:00 08:30:00 [facility] 2020-09-26 2020-09-26 Anesthesia Joanie [facility] [id number] 07:12:00 08:20:00 Event [facility] 2020-09-22 2020-09-22 Emergency ER [facility] [id number] [facility] 06:09:00 06:09:00 2020-09-22 2020-09-22 Travel [facility] [id number] [facility] 00:[facility]:00 [facility] 2020-09-17 2020-09-17 Outpatient CONTRERAS, [facility] [id number] Access 10:30:00 10:30:00 MIRTAObdulia Martinez 2020-09-17 2020-09-17 OFFICE/OUT DIANE, [facility] [id number] Access 10:30:00 10:30:00 PATIENT MIRTA -4926-a4f [id number] Health VISIT EST [id number] alexander [id number] 2020-08-19 2020-08-19 Outpatient OMORI, [facility] [id number] Access 16:36:00 16:36:00 NAIF marie 2020-08-19 2020-08-19 Outpatient [facility] [id number] Access 16:36:00 16:36:00 NAIF Estrella-4926-a4f [id number] Health [id number] alexander [id number] 2020-08-15 2020-08-15 Outpatient OMORI, [facility] [id number] Access 16:00:00 16:00:00 NAIF marie 2020-08-15 2020-08-15 OFFICE/OUT [facility] [id number] Access 16:00:00 16:00:00 PATIENT NAIF Estrella-4926-a4f [id number]- [id number] Health VISIT EST [id number] alexander [id number] 2020-07-04 2020-07-04 Outpatient OMORI, [facility] [id number] Access 08:04:00 08:04:00 NAIF marie 2020-07-04 2020-07-04 Outpatient [facility] [id number] Access 08:04:00 08:04:00 NAIF Estrella-4926-a4f [id number]- 8 Health [id number] alexander [id number] 2020-06-28 2020-06-28 Outpatient NURSE, [facility] [id number] Access 09:35:00 09:35:00 NURSE Health 2020-06-28 2020-06-28 Outpatient NURSE, [facility] [id number] Access 09:35:00 09:35:00 NURSE [id number] [facility] [id number] 2020-06-19 2020-06-19 Outpatient OMORI, [facility] [id number] Access 10:00:00 10:00:00 NAIF Barretoraul cynthia 2020-06-19 2020-06-19 Outpatient OMORI, [facility] [id number] Access 10:00:00 10:00:00 NAIF 22-4926-a4f [id number] [facility] [id number] alexander [id number] 2020-05-09 2020-05-09 Outpatient OMORI, [facility] [id number] Access 12:10:00 12:10:00 NAIF Oh cynthia 2020-05-09 2020-05-09 Outpatient OMORI, [facility] [id number] Access 12:10:00 12:10:00 NAIF 22-4926-a4f [id number] [facility] [id number] alexander [id number] 2020-04-30 2020-04-30 Emergency [place] [facility] [id number] [facility] 18:09:00 19:41:00 David Wang [facility] 2020-04-30 2020-04-30 Emergency ER [facility] Emergency [id number] [facility] 17:53:00 17:53:00 2020-04-30 2020-04-30 Travel [facility] [id number] [facility] 00:[facility]:00 [facility] 2020-04-26 2020-04-26 Outpatient OMORI, [facility] [id number] Access 10:00:00 10:00:00 NAIF Oh 2020-04-26 2020-04-26 OFFICE/OUT ZOE, [facility] kdr076rn-8z 8f4 v9552-y Access 10:00:00 10:00:00 PATIENT NAIF 22-4926-a4f 15b-403b- a Health VISIT [facility] f-[id number] i02-70i160 alexander d6ef4f 2020-04-22 2020-04-22 Outpatient OMORI, [facility] [id number] Access 14:45:00 14:45:00 NAIF marie 2020-04-22 2020-04-22 Outpatient OMORI, [facility] isa740jb-7g 55c 39beb-3 Access 14:45:00 14:45:00 NAIF -4926-a4f 332-4409- b Health f-36075331c f35-az32b1 alexander 201b3a 2020-04-22 2020-04-22 Outpatient IRIZARRY, [facility] [id number] Access 12:41:00 12:41:00 SUKUMAR marie 2020-04-22 2020-04-22 Outpatient IRIZARRY, [facility] 3zr1f0k5-0y 9a1 ddbd0-e Access 12:41:00 12:41:00 SUKUMAR e2-3vx8-40e 3u9-0w4r- 9 [facility] 0-bb3wmw196 30c-206d01 0f4 yp8256 2020-04-18 2020-04-18 Outpatient OMORI, [facility] [id number] Access 13:20:00 13:20:00 NAIF marie 2020-04-18 2020-04-18 Outpatient OMORI, [facility] kzx621et-7x 4ce d3iy8-6 Access 13:20:00 13:20:00 NAIF 22-4926-a4f g32-7cj1- 9 Health f-88244001j l70-264697 alexander 117a2b 2020-04-09 2020-04-09 Outpatient OMORI, [facility] [id number] Access 09:46:00 09:46:00 NAIF marie 2020-04-09 2020-04-09 Outpatient OMORI, [facility] avp637jj-7e 246 289l9-p Access 09:46:00 09:46:00 NAIF Estrella-4926-a4f 7fb-45a5- 8 Health f-97991334w eb3-4da5a2 alexander dfcadb 2020-03-30 2020-04-06 Hospital ER Tyshawn Serra [facility] [id number] 19:31:00 13:42:00 Encounter Abel Alatorre, Frandy Lowe [facility] 2020-04-04 2020-04-04 Outpatient [facility], [facility] [id number] Access 14:43:00 14:43:00 NAIF Oh 2020-04-04 2020-04-04 Outpatient [facility] hdj068ob-7d 1fd z7208-s Access 14:43:00 14:43:00 NAIF 22-4926-a4f n5v-2b19- 9 [facility] f-19652382w 186-296d9f alexander 6cbd5c 2020-04-01 2020-04-01 Anesthesia Jose Raul [facility] [id number] 11:51:00 12:50:00 Event [facility] 2020-04-01 2020-04-01 Surgery Patrick [facility] [id number] 11:30:00 12:45:00 [facility] 2020-04-01 2020-04-01 Orders [facility] [id number] 00:00:00 00:00:[address] [facility] 2020-03-30 2020-03-30 Emergency ER [facility] Emergency [id number] [facility] 19:22:00 19:22:00 2020-03-30 2020-03-30 Travel [facility] [id number] [facility]00 00:[facility]:00 [facility] 2020-03-19 2020-03-20 Emergency ER Venkatesh [facility] [id number] 23:25:00 02:51:00 David Wang [facility] 2020-03-19 2020-03-19 Emergency ER [facility] Emergency [id number] [facility] 23:15:00 23:15:00 2020-03-19 2020-03-19 Travel [facility] [id number] [facility] 00:00:00 00:00:00 [facility] 2020-03-08 2020-03-08 Outpatient DINH CALVO [facility] [id number] Access 12:03:00 12:03:00 Health 2020-03-08 2020-03-08 Outpatient DINH CALVO [facility] 4qn1b4n0-0g fd99zhzx-n Access 12:03:00 12:03:00 e2-1wk9-30c y73-7b49-k Health 0-pa6zyz759 0w0-003k9y 0f4 74b4d5 2020-03-06 2020-03-06 Outpatient OMSTEFANI, [facility] [id number] Access 15:00:00 15:00:00 NAIF marie 2020-03-06 2020-03-06 OFFICE/OUT [facility], [facility] iim152jm-8s 35b 30edf-4 Access 15:00:00 15:00:00 PATIENT NAIF 22-4926-a4f 79d-4bf4- 8 Health VISIT EST f-[id number] [id number]-zc6080 alexander o4442e 2019 2019 Emergency ER [facility] [id number] [facility] 07:11:00 07:11:00 2019-11-20 2019-11-20 Outpatient [facility], [facility] [id number] Access 10:30:00 10:30:00 NAIF marie 2019-11-20 2019-11-20 Outpatient [facility], [facility] dso495ks-3p 8ff 49s6i-8 Access 10:30:00 10:30:00 NAIF 22-4926-a4f ea8-46d7- a Health f-94506300g q78-k0waq4 alexander us5437 2019-11-09 2019-11-09 Outpatient [facility], [facility] [id number] Access 16:15:00 16:15:00 NAIF marie 2019-11-09 2019-11-09 OFFICE/OUT [facility], [facility] wnx016vn-7q f4c 3j680-z Access 16:15:00 16:15:00 PATIENT NAIF Bravo4926-a4f x8i-8u94- 8 Health VISIT EST f-13211063o [id number] alexander 4bg900 2019-09-28 2019-09-28 [facility] e0729-a Access 13:21:00 13:21:00 NAIF Bravo4926-a4f 189-4af1- 9 Health f-06826974m [id number] alexander 41286j 2019-09-28 2019-09-28 Outpatient DINH CALVO [facility] 3ji2g2i2-5m 18jr924j-r Access 10:54:00 10:54:00 e2-3gi7-68c 730-4d70-a Health 0-dh6ntq137 7ef-ba6cbd 0f4 59x906 2019-07-15 2019-07-15 Emergency [facility] [id number] [facility] 22:19:00 22:19:00 [id number] 2019-07-03 2019-07-03 OFFICE/OUT ZOE, [facility] inw117mh-0i 81c 017r6-r Access 10:30:00 10:30:00 PATIENT NAIF Bravo4926-a4f 8cf-4b4d- b Health VISIT EST f-[id number] 9x6-ytd9ck alexander q3f476 2019-05-09 2019-05-09 [facility] e799d-f Access 08:16:00 08:16:00 NAIF Bravo4926-a4f z6b-46j8- b Health f-73486710b 12b-ff4e3d alexander ada41d 2019-05-01 2019-05-01 [facility] 07a x9s1r-4 Access 09:27:00 09:27:00 NURSE Shelly4926-a4f eab-46d9-9 Health f-47735069a o87-86v66x alexander 3d7d99 2019-04-11 2019-04-11 [facility] 608 t4m84-c Access 17:52:00 17:52:00 NAIF Ferreira6-a4f i29-1s6n- 9 Health f-81382800q 1ed-4c31d3 alexander a7dbdd 2019-04-06 2019-04-06 Outpatient ZOE, [facility] oiz595bt-8l cfd 71028-3 Access 17:33:00 17:33:00 NAIF Bravo4926-a4f 877-42c1- a Health f-74216756p d40-66856q alexander 78dc28 2019-04-04 2019-04-04 OFFICE/OUT ZOE, [facility] app575es-3e 0a8 0z71l-9 Access 14:30:00 14:30:00 PATIENT NAIF Bravo4926-a4f lyudmila-46ec- b Health VISIT EST f-51144106w fd1-2857e5 alexander ab27a1 2018-09-07 2018-09-07 Outpatient ZOE, [facility] gse288do-5c 7e5 64fea-3 Access 00:00:00 00:00:00 NAIF Bravo4926-a4f 2ee-4361- b Health f-00641954w f2z-0p6f10 alexander 40192o 2018-09-06 2018-09-06 Outpatient ZOE, [facility] qhb219up-5n 69a 8y6b4-6 Access 09:34:00 09:34:00 NAIF Bravo4926-a4f cf2-4291- 9 [facility] f-37555237u db4-f91ed2 alexander 84f5b6 2018-07-26 2018-07-26 Outpatient [facility] [id number] Access 00:00:00 00:00:00 H, PROVIDER Barry garcia 2018-07-26 2018-07-26 Outpatient [facility] 5uk8c5w7-8x 7a79nv61-8 Access 00:00:00 00:00:00 H, PROVIDER e2-3uf1-55w 24b-42 3c-8 [facility] 0-qq4gju170 036-5ea1f1 0f4 dc6a94 2018-07-26 2018-07-26 Outpatient CONTRERAS, [facility] omx027fz-3a 7 pp6rq10-7 Access 00:00:00 00:00:00 MIRTA EstrellaRy4926-a4f i42-11u5-p Health f-77152119l z29-9s1r27 alexander d785c1 2018-07-26 2018-07-26 Outpatient OMORI, [facility] 0vf1c2z5-5f 877 rh214-0 Access 00:00:00 00:00:00 NAIF pierre-6bu6-68b 397-493a- a Health 0-rg6ken120 7p2-s7pf3c 0f4 29971m 2018-07-26 2018-07-26 Outpatient OMORI, [facility] tcf556nw-5v 499 y9w26-9 Access 00:00:00 00:00:00 NAIF Bravo4926-a4f ba6-4f54- 8 Health f-36396773c 5m0-d4w48s alexander a45b7b 2018-07-25 2018-07-25 Outpatient OMORI, [facility] qab334lx-9e 62b bbb95-e Access 00:00:00 00:00:00 NAIF Sameer-4926-a4f d41-0924- 8 Health f-25701898g cbf-5b3a7f alexander w7389h 2018-07-22 2018-07-22 Outpatient [facility] [id number] Access 00:00:00 00:00:00 H, PROVIDER Barry garcia 2018-07-22 2018-07-22 Outpatient [facility] 4ao6o3w1-2y 8sen1hk3-5 Access 00:00:00 00:00:00 H, PROVIDER gabby-1ep6-84a 1b8-4b 5b-b Health 0-ql9has951 54b-899e22 0f4 103118 2733-04-26 2018-07-22 Outpatient OMORI, [facility] jbf482rh-1d 44d 07x26-w Access 00:00:00 00:00:00 NAIF Sameer-4926-a4f 8cb-4f46- b Health f-33415375q b76-082i5w alexander 871f2f 2018-07-22 2018-07-22 Outpatient CONTRERAS, [facility] caf453nd-5w c 4846v9g-0 Access 00:00:00 00:00:00 MIRTA Shelly4926-a4f s51-8dh5-a Health f-96356029k 39a-5f4598 alexander cfbbac 2018-06-28 2018-06-28 Outpatient [facility] [id number] Access 00:00:00 00:00:00 H, PROVIDER Barry garcia 2018-06-28 2018-06-28 Outpatient [facility] 7kk8i9s3-4e 64397yw1-j Access 00:00:00 00:00:00 H, PROVIDER gabby-3df6-22y 17d-4e 23-9 Health 0-ae3elp800 046-469fb5 0f4 bc45ce 2018-03-30 2018-03-30 Outpatient [facility] [id number] Access 00:00:00 00:00:00 H, PROVIDER Barry garcia 2018-03-30 2018-03-30 Outpatient [facility] 9oj5d2i0-0g o06j2m27-1 Access 00:00:00 00:00:00 H, PROVIDER gabby-3nf2-85n 710-43 22-8 Health 0-if8fqk438 6x5-j4vh57 0f4 7d1bee 2018-03-30 2018-03-30 Outpatient CONTRERAS, [facility] cis806xn-4w 1 e0nc50h-3 Access 00:00:00 00:00:00 MIRTA 22-4926-a4f 56a-40cb-a Health f-82516495k v65-404o01 alexander [id number] 8113-01-02 2018-03-30 Outpatient OMORI, [facility] kfy690hw-4a 448 3u9tc-c Access 00:00:00 00:00:00 NAIF 22-4926-a4f 520-4c13- 8 Health f-33739532f a20-9nw4al alexander 9b9a27 2017-12-28 2017-12-28 Outpatient [facility] [id number] Access 00:00:00 00:00:00 H, PROVIDER Barry garcia 2017-12-28 2017-12-28 Outpatient [facility] 2ev2y2i4-0m 4938imp1-5 Access 00:00:00 00:00:00 H, PROVIDER gabby-0vj6-88q bed-49 71-9 Health 0-hr1fep116 255-89125u 0f4 06e2a8 2017-12-27 2017-12-27 Outpatient [facility] [id number] Access 00:00:00 00:00:00 H, PROVIDER Barry garcia 2017-12-27 2017-12-27 Outpatient [facility] 8ll2b6m4-8d v1726yrp-7 Access 00:00:00 00:00:00 H, PROVIDER e2-5aa3-42j 1d0-43 b0-a Health 0-do8nfw832 44c-ecfa29 0f4 1cg104 2017-12-20 2017-12-20 Outpatient CONTRERAS, [facility] nes186zb-0m 9 j9i2974-2 Access 08:48:00 08:48:00 MIRTA 22-4926-a4f 224-45e3-9 Health f-95402569z fc6-096b3d alexander 040c9a 2017-12-20 2017-12-20 Outpatient [facility] [id number] Access 00:00:00 00:00:00 H, PROVIDER Barry garcia 2017-12-20 2017-12-20 Outpatient [facility] 5gc9r8z8-3x 3jvhr20s-1 Access 00:00:00 00:00:00 H, PROVIDER e2-6ps1-08m b2c-4b 7d-b Health 0-zn2eoh959 t48-33u40h 0f4 c568b3 2017-12-20 2017-12-20 Outpatient IRIZARRY, [facility] aoe807qd-8f 79a 21794-b Access 00:00:00 00:00:00 KATELINE 22-4926-a4f eae-4c31- b Health f-08171982c 520-eq9208 alexander 0a3c1f 2017-12-20 2017-12-20 Outpatient OMORI, [facility] jsj647tz-3c 2e3 ejc6v-6 Access 00:00:00 00:00:00 NAIF 22-4926-a4f da8-4f41- a Health f-59200193m 12d-3adf05 alexander 0d5ff7 2017-12-20 2017-12-20 Outpatient ENRIQUE, [facility] jzj370wz-7g a7c 9l000-x Access 00:00:00 00:00:00 CAROLYN 22-4926-a4f 5m8-1y5y-8 Health f-27921376m 6f9-s25j57 alexander 4b61d6 2017-12-20 2017-12-20 Outpatient JONAS, [facility] axf128ke-5e cf 60sxy8-n Access 00:00:00 00:00:00 MAEVE 22Ry4926-a4f 051-44b8-b Health f-97902559r 2h9-2z6137 alexander aee2d5 2017-07-14 2017-07-14 Outpatient [facility] [id number] Access 00:00:00 00:00:00 H, PROVIDER Barry garcia 2017-07-14 2017-07-14 Outpatient [facility] 4be5s6e4-7v tc5v4py3-z Access 00:00:00 00:00:00 H, PROVIDER e2-0lu1-35x 109-47 80-a Health 0-rv7uze510 784-s54359 0f4 01e0fc 2017-07-14 2017-07-14 Outpatient [facility] 9wl2v0c6-4w f0f 0g89h-j Access 00:00:00 00:00:00 e2-1tq9-03y 98a-4568-b Health 0-wc1goy123 001-941db6 0f4 9c42e9 2017-07-14 2017-07-14 Outpatient ENRIQUE, [facility] 8bt5s9m9-8s 7d1 u7qxu-8 Access [facility]4bf9[facility]9 Health 0-fn2pfo036 z08-1310m2 0f4 102369 5882-03-16 2017-06-11 Outpatient ZOE, [facility] fve917ic-0l ded hh813-7 Access 00:00:00 00:00:00 NAIF 22-4926-a4f 849-421a- a Health f-20797180n 11b-54fdd4 alexander 2c3720 2017-06-10 2017-06-10 Outpatient [facility] [id number] Access 00:00:00 00:00:00 H, PROVIDER Barry garcia 2017-06-10 2017-06-10 Outpatient [facility] 3pn9r6h7-6w c8zhk6ov-7 Access 00:00:00 00:00:00 H, PROVIDER e2-2ri0-46c a95-4d 18-8 Health 0-nn5bjq354 67d-88e2c2 0f4 2eef4c 2017-06-10 2017-06-10 Outpatient DIANE, [facility] uxz389sy-6k e ci4b9oh-7 Access 00:00:00 00:00:00 MIRTA 22-4926-a4f 3ac-43d9-9 Health f-08689768l 6de-47j899 alexander ceaffe 2017-06-10 2017-06-10 Outpatient EM, [facility] cos615hl-5v 27 d7dwld-6 Access 00:00:00 00:00:00 VITA 22-4926-a4f 0ec-4f3f -8 Health f-28143710m 6c1-7r5x47 alexander 45f135 2017-06-10 2017-06-10 Outpatient OMORI, [facility] fff984eu-4e 6d7 wa806-l Access 00:00:00 00:00:00 NAIF 22-4926-a4f f9n-7601- b Health f-86465748l 499-dh896v alexander atj877 2017-04-09 2017-04-09 Outpatient OMORI, [facility] kcf915wc-7b a22 7pkx6-4 Access 13:28:00 13:28:00 NAIF 22-4926-a4f 27b-4f1f- 8 Health f-82016960v 3ef-fa2b8f alexander 01876p 2017-04-09 2017-04-09 Outpatient [facility] [id number] Access 00:00:00 00:00:00 H, PROVIDER Barry garcia 2017-04-09 2017-04-09 Outpatient [facility] 9dw1r5h3-2e lb74673w-2 Access 00:00:00 00:00:00 H, PROVIDER e2-2dn9-07s acc-4b a3-b Health 0-us4fkb791 a15-83tq6o 0f4 7x6593 2017-04-09 2017-04-09 Outpatient CONTRERAS, [facility] nix497wq-3h d 4600hd2-0 Access 00:00:00 00:00:00 MIRTA 22-4926-a4f be7-40fa-9 Health f-42940669x fad-beba5c alexander 745e5a 2017-03-30 2017-03-30 Outpatient [facility] [id number] Access 00:00:00 00:00:00 H, PROVIDER Barry garcia 2017-03-30 2017-03-30 Outpatient [facility] 7oi9l5o4-9l y4r2t863-m Access 00:00:00 00:00:00 H, PROVIDER e2-9li6-61r e7f-41 b3-8 Health 0-gi9dwf386 0ab-4xd621 0f4 5ba25a 2017-02-09 2017-02-09 Outpatient [facility] [id number] Access 00:00:00 00:00:00 H, PROVIDER Barry garcia 2017-02-09 2017-02-09 Outpatient [facility] 2ge2w8o9-6q 14c3zz3f-0 Access 00:00:00 00:00:00 H, PROVIDER e2-4jl5-04g eed-49 91-9 Health 0-sx3poe803 725-67933g 0f4 de8ac2 2017-02-09 2017-02-09 Outpatient OMORI, [facility] nks595eo-9b b35 hp591-7 Access 00:00:00 00:00:00 NAIF 22-4926-a4f y45-5q05- a Health f-60287070o g57-92t5v1 alexander 88c1fc 2017-02-09 2017-02-09 Outpatient CONTRERAS, [facility] eea460ot-8z d 68m4a50-r Access 00:00:00 00:00:00 MIRTA 22-4926-a4f 34c-46bd-b Health f-97104709l 70f-v1655s alexander faf56f 2016-12-15 2016-12-15 Outpatient [facility] [id number] Access 00:00:00 00:00:00 H, PROVIDER Barry garcia 2016-12-15 2016-12-15 Outpatient [facility] 0rv5i0x1-7q 085li988-3 Access 00:00:00 00:00:00 H, PROVIDER e2-3ze1-09u 3ba-4a 3c-8 Health 0-nh7ywb769 9fd-cceee0 0f4 5f5e8e 2016-12-15 2016-12-15 Outpatient CHARLY BARDALES [facility] [id number]-66 89hjk4r4-0 Access 00:00:00 00:00:00 45-7k1c-i4j r3v-41h6-k Health d-t8a385874 00b-ed1c16 354 e7dd8d 2016-12-12 2016-12-12 Outpatient [facility] [id number] Access 00:00:00 00:00:00 H, PROVIDER Barry garcia 2016-12-12 2016-12-12 Outpatient [facility] 4iy9a7f5-5r m8709mc7-q Access 00:00:00 00:00:00 H, PROVIDER e2-8qq7-14b 6fa-4f 7f-9 Health 0-jd1lyi895 402-fe6f8d 0f4 1526bf 2016-12-12 2016-12-12 Outpatient ISAURA, [facility] 0wu7d6l9-4q 91 9g65ze-2 Access 00:00:00 00:00:00 CHRISTINA e2-2yi4-19u z5p-1ipm- 9 Health 0-vw1vol627 558-4d60f7 0f4 f917d6 2016-12-11 2016-12-11 Outpatient CHARLY BARDALES [facility] [id number] b73p8y1y-7 Access 00:00:00 00:00:00 45-5o8g-z8o 3fe-4dc9-9 Health d-m2b467744 474-f474cb 354 c4eb2b 2016-12-10 2016-12-10 Outpatient [facility] [id number] Access 00:00:00 00:00:00 H, PROVIDER Barry garcia 2016-12-10 2016-12-10 Outpatient [facility] 5zq0x1c7-2z 083pwb4j-0 Access 00:00:00 00:00:00 H, PROVIDER gabby-1no3-84x 706-4a aa-b Health 0-mm6suy301 af4-5611ae 0f4 206234 1379-09-14 2016-12-10 Outpatient CHARLY BARDALES [facility] [id number]-70 3tq99x94-j Access 00:00:00 00:00:00 45-5v5w-u7r v4l-6701-o Health d-w6a674406 y8p-35q3b5 354 5b51dc 2016-12-01 2016-12-01 Outpatient [facility] [id number] Access 00:00:00 00:00:00 H, PROVIDER Barry garcia 2016-12-01 2016-12-01 Outpatient [facility] 6fr2g2r6-3d 8cj7g7o3-2 Access 00:00:00 00:00:00 H, PROVIDER april5qq4-05b 4f5-4c 72-9 Health 0-up6iuf955 x6e-7jy312 0f4 8ff05c 2016-12-01 2016-12-01 Outpatient DIPIKA [facility] [id number] 42 bn10kq-1 Access 00:00:00 00:00:00 LAVELLE 45-3r9l-v1h 636-4710-8 Health d-k9i257099 2ff-2f9a6a 354 ef57e5 2016-12-01 2016-12-01 Outpatient CHARLY BARDALES [facility] [id number] pqpz5958-w Access 00:00:00 00:00:00 45-0b0p-w4e df0-4210-a Health d-[id number] 5c3-011y3y 354 [id number] 2016-11-27 2016-11-27 Outpatient [facility] 107 [id number] Access 00:00:00 00:00:00 H, PROVIDER Barry garcia 2016-11-27 2016-11-27 Outpatient [facility] [id number] Access 00:00:00 00:00:00 H, PROVIDER april3li9-96r db1-44 51-9 Health 0-ua1euw948 4w0-u0a302 0f4 [id number] 4728-09-01 2016-11-27 Outpatient CANAMAR, [facility] [id number] Access 00:00:00 00:00:00 LAVELLE Pepe1u5m-q0h m31-84c6-f Health d-[id number] 384-b0c4cd 354 [id number] 2016-11-26 2016-11-26 Outpatient [facility] 107 [id number] Access 00:00:00 00:00:00 H, PROVIDER Barry garcia 2016-11-26 2016-11-26 Outpatient [facility] [id number] Access 00:00:00 00:00:00 H, PROVIDER valerie2fn3-37u c45-46 cf-b Health 0-bm9mch100 4ad-4c0e68 0f4 37dc7c 2016-11-26 2016-11-26 Outpatient CANAMAR, [facility] [id number] Access 00:00:00 00:00:00 LAVELLE Pepe9s6z-g1c ae7-40e5-a Health d-[id number] [id number] 354 fc21e9 2016-11-20 2016-11-20 Outpatient [facility] 107 [id number] Access 00:00:00 00:00:00 H, PROVIDER Barry garcia 2016-11-20 2016-11-20 Outpatient [facility] [id number] Access 00:00:00 00:00:00 H, PROVIDER april8fr9-37b 2e2-42 0d-8 Health 0-dn5djw240 [id number] 0f4 [id number] 2016-11-20 2016-11-20 Outpatient CANAMAR, [facility] [id number] Access 00:00:00 00:00:00 LAVELLE Pepe6k9v-c1j 250-49d0-a Health d-[id number] aa8-0b8ad1 354 [id number] 7641-08-23 2016-11-18 Outpatient [facility] 107 [id number] Access 00:00:00 00:00:00 H, PROVIDER Barry garcia 2016-11-18 2016-11-18 Outpatient [facility] [id number] Access 00:00:00 00:00:00 H, PROVIDER gabby-9hx4-68m 7d4-4d a9-8 Health 0-yy0jnw595 t44-70lkhl 0f4 c11e26 2016-11-18 2016-11-18 Outpatient CHARLY BARDALES [facility] [id number] Access 00:00:00 00:00:00 Justo-0g5g-h8p ea3-4257-a Health d-[id number]-[id number] 354 [id number] 2016-11-12 2016-11-12 Outpatient CANAMAR, [facility] [id number] Access 00:00:00 00:00:00 LAVELLE Pepe5z3o-l8e r8m-8ch2-a Health d-e8j474989 x4t-119ji9 354 [id number] 2016-11-11 2016-11-11 Outpatient [facility] 107 [id number] Access 00:00:00 00:00:00 H, PROVIDER Barry garcia 2016-11-11 2016-11-11 Outpatient [facility] [id number] Access 00:00:00 00:00:00 H, PROVIDER gabby-5hw0-37v 968-42 07-b Health 0-oq7rur696 [id number] 0f4 [id number] 2016-11-11 2016-11-11 Outpatient CANAMAR, [facility] [id number] Access 00:00:00 00:00:00 LAVELLE Pepe4s9z-l8a 633-4aa9-8 Health d-w3r033876 fff-967977 354 ee4a0e 2016-10-30 2016-10-30 Outpatient [facility] [id number] Access 00:00:00 00:00:00 H, PROVIDER Barry garcia 2016-10-30 2016-10-30 Outpatient [facility] [id number] [id number] Access 00:00:00 00:00:00 H, PROVIDER e2-0wl5-02b 47b-46 3e-8 Health 0-ze0res725 m2p-gmq7z7 0f4 [id number] 2016-10-30 2016-10-30 Outpatient CHARLY BARDALES [facility] [id number] Access 00:00:00 00:00:00 45-7o9l-o0y evert-47eb-b Health d-m0x903013 1a4-25p8ck 354 [id number] 2016-10-26 2016-10-26 Outpatient [facility] 107 [id number] Access 00:00:00 00:00:00 H, PROVIDER Barry garcia 2016-10-26 2016-10-26 Outpatient [facility] [id number] Access 00:00:00 00:00:00 H, PROVIDER e2-9hn3-07z 1e9-4c db-b Health 0-ua4bit527 o78-c387fg 0f4 [id number] 2016-10-26 2016-10-26 Outpatient ISAURA, [facility] 9di5b2l1-2o e8 [id number] Access 00:00:00 00:00:00 CHRISTINA e2-9np1-66c b3d-9318- 9 Health 0-gl7bxz887 p1t-z6z9n3 0f4 [id number] 2016-10-26 2016-10-26 Outpatient OMORI, [facility] 4qb5h8a4-0t 5e5 [id number]-4 Access 00:00:00 00:00:00 NAIF e2-2yi1-34w b52-2s71- b Health 0-ty5jbt421 000-hd8676 0f4 79f96a 2016-10-09 2016-10-09 Outpatient DIPIKA, [facility] [id number] cf [id number] Access 00:00:00 00:00:00 LAVELLE 45-0f6t-f6l 038-47e9-8 Health d-s2u201383 93d-796d4d 354 1ee1de 2016-10-08 2016-10-08 Outpatient [facility] 107 [id number] Access 00:00:00 00:00:00 H, PROVIDER Barry garcia 2016-10-08 2016-10-08 Outpatient [facility] 2ce3b3c5-3l [id number] Access 00:00:00 00:00:00 H, PROVIDER april3rz7-07i 757-44 91-a Health 0-uv1jji647 338-7c8ea0 0f4 s2b160 2016-10-08 2016-10-08 Outpatient CANAMAR, [facility] [id number] Access 00:00:00 00:00:00 LAVELLE Justo-8a3x-e1t f76-0d8a-g Health d-[id number] 65d-fda44a 354 [id number] 2016-10-05 2016-10-05 Outpatient [facility] 107 [id number] Access 00:00:00 00:00:00 H, PROVIDER Barry garcia 2016-10-05 2016-10-05 Outpatient [facility] 1xm8n2b6-3p [id number] Access 00:00:00 00:00:00 H, PROVIDER april4yj0-30r 137-4e 58-a Health 0-ab7vis000 [id number]-17496z 0f4 tu424j 2016-10-05 2016-10-05 Outpatient CANAMAR, [facility] [id number] [id number] Access 00:00:00 00:00:00 LAVELLE Justo-1u1h-o7j 8f9-122f-a Health d-a6j211696 e57-po36te 354 [id number] 7690-06-29 2016-09-24 Outpatient [facility] 107 [id number] Access 00:00:00 00:00:00 H, PROVIDER Barry garcia 2016-09-24 2016-09-24 Outpatient [facility] [id number] [id number] Access 00:00:00 00:00:00 H, PROVIDER e2-8ln4-37w 9da-4d 9e-a Health 0-gu7isv319 z64-02323p 0f4 0747d9 2016-09-24 2016-09-24 Outpatient ISAURA, [facility] 7rl5l3j9-1e af 558813-a Access 00:00:00 00:00:00 CHRISTINA e2-9bw7-86b h89-871k- b Health 0-mr5hkh823 c4x-9d614r 0f4 7bee42 2016-09-24 2016-09-24 Outpatient OMORI, [facility] 2ig5t8d4-1d 060 7g8d4-6 Access 00:00:00 00:00:00 NAIF e2-7cy6-98g 4bb-4165- a Health 0-um9uhn659 98a-0y124x 0f4 47c697 2016-09-22 2016-09-22 Outpatient [facility] 107 [id number] Access 00:00:00 00:00:00 H, PROVIDER Barry garcia 2016-09-22 2016-09-22 Outpatient [facility] 7gl8k1k9-6a 8u1167hd-9 Access 00:00:00 00:00:00 H, PROVIDER e2-5us4-45o 072-4c 2a-9 Health 0-se9fsr427 094-b1ac8e 0f4 1311cf 2016-09-22 2016-09-22 Outpatient TIMA, [facility] 3la0u4h9-4j 292 72ebd-f Access 00:00:00 00:00:00 OSMAN e2-6rb9-72v 330-4e57-a Health 0-zm2rms040 92e-33cd44 0f4 6q4598 2016-09-22 2016-09-22 Outpatient CONTRERAS, [facility] 6mt1m4w5-9x 2 1l5tbn5-v Access 00:00:00 00:00:00 MIRTA e2-5ei3-66e 87b-4174-a Health 0-bm9amc391 470-63s655 0f4 1573c2 2016-08-26 2016-08-26 Outpatient [facility] 107 [id number] Access 00:00:00 00:00:00 H, PROVIDER Barry garcia 2016-08-26 2016-08-26 Outpatient [facility] 1df4t8b7-3a o612ekcv-w Access 00:00:00 00:00:00 H, PROVIDER e2-4rb7-06z a1b-4a 92-8 Health 0-zx2sgd843 c68-6zeb25 0f4 8ji463 2016-08-26 2016-08-26 Outpatient MENDIETA, [facility] 1wj7f4m1-6o da xme28r-0 Access 00:00:00 00:00:00 CHRISTINA e2-0nu2-35c 81b-44be- a Health 0-gq6wbb716 452-6f5133 0f4 9q1028 2016-08-26 2016-08-26 Outpatient IRIZARRY, [facility] 0kr5a9y0-1c afb 8lo39-6 Access 00:00:00 00:00:00 KATELINE e2-1ut6-73g 026-4182- b Health 0-ws2brz415 11d-2i7016 0f4 3x1360 2016-08-26 2016-08-26 Outpatient OMORI, [facility] 0mv5x8w1-8k c21 101ca-e Access 00:00:00 00:00:00 NAIF e2-7ey2-86u j6y-4400- a Health 0-yy7qkx643 ec7-b36447 0f4 92c4e9 2016-08-03 2016-08-03 Outpatient TIMA, [facility] bqw918wy-1r e56 8mv65-s Access 16:13:00 16:13:00 OSMAN 22-4926-a4f 17d-4116-b Health f-50770589n 320-16acc1 alexander 11df8e 2016-07-29 2016-07-29 Outpatient [facility] 107 [id number] Access 00:00:00 00:00:00 H, PROVIDER Barry garcia 2016-07-29 2016-07-29 Outpatient [facility] 5vp8b7d0-7g 2cgd9885-8 Access 00:00:00 00:00:00 H, PROVIDER valerie0qq3-09y 2c6-43 ca-8 Health 0-dw1lth779 fe8-48fadf 0f4 54c2ba 2016-07-29 2016-07-29 Outpatient TIMA, [facility] biw068kb-4v a6f 31yz3-0 Access 00:00:00 00:00:00 OSMAN 22-4926-a4f 6ad-4eac-9 Health f-55253082g ab0-86e98c alexander m1324o 2016-07-29 2016-07-29 Outpatient DIANE, [facility] bjn050jb-3v d a08wy90-7 Access 00:00:00 00:00:00 MIRTA 22-4926-a4f 1n8-56ic-0 Health f-58214946r 67a-3d9ddd alexander ivk362 2016-07-24 2016-07-24 Outpatient [facility] 107 [id number] Access 00:00:00 00:00:00 H, PROVIDER Barry garcia 2016-07-24 2016-07-24 Outpatient [facility] 9mr7x2r2-2h q42820c5-2 Access 00:00:00 00:00:00 H, PROVIDER e2-1ig7-56p 046-4f 02-a Health 0-tk5elw649 8m3-61zh18 0f4 062d54 2016-07-24 2016-07-24 Outpatient ISAURA, [facility] uak024ik-0v d2 157p26-x Access 00:00:00 00:00:00 CHRISTINA 22-4926-a4f w8t-88ok- b Health f-63764615z e5a-021332 alexander c19d1a 2016-07-24 2016-07-24 Outpatient OMORI, [facility] exa797ws-2n e3f p0p26-q Access 00:00:00 00:00:00 NAIF 22-4926-a4f h8o-55t5- 8 Health f-86920326v bba-be69db alexander 0b9f49 2016-07-17 2016-07-17 Outpatient NUNEZ, [facility] gal346mj-7p 163 f97xe-4 Access 00:00:00 00:00:00 GAYTARI 22-4926-a4f h02-8116-s Health f-72034210n ec6-9ef36c alexander 442384 3076-04-20 2016-07-16 Outpatient [facility] 107 [id number] Access 00:00:00 00:00:00 H, PROVIDER Barry garcia 2016-07-16 2016-07-16 Outpatient [facility] 3ca8q1b4-0z 110g37ij-8 Access 00:00:00 00:00:00 H, PROVIDER e2-8xk1-83c f7c-42 66-9 Health 0-ho0xii024 762-340d90 0f4 1876fa 2016-07-16 2016-07-16 Outpatient IRIZARRY, [facility] [id number]-30 692 0r2z9-i Access 00:00:00 00:00:00 KATELINE 45-2b3q-r8j 17f-442e- a Health d-e9t238431 ddf-4g6985 354 e90b6a 2016-07-16 2016-07-16 Outpatient DIANE, [facility] fjs327mp-9f c 0387fac-c Access 00:00:00 00:00:00 MIRTA 22-4926-a4f 06b-4903-a Health f-31201103q y46-5y2l76 alexander g22756 2016-07-16 2016-07-16 Outpatient CHARLY BARDALES [facility] 56z4874l-67 56jgm167-p Access 00:00:00 00:00:00 45-0o3r-w3r 049-4b28-8 Health d-c6i232304 36f-66s217 354 ojk808 2016-07-16 2016-07-16 Outpatient ENRIQUE, [facility] awb035nr-0h 2cb 897h2-b Access 00:00:00 00:00:00 GAYTARI 22-4926-a4f ec3-43e2-b Health f-07534757x 989-acffbb alexander acf4d2 2016-07-14 2016-07-14 Outpatient [facility] 107 [id number] Access 00:00:00 00:00:00 H, PROVIDER Barry garcia 2016-07-14 2016-07-14 Outpatient [facility] 5wr9j4i0-6j 820k1u2x-6 Access 00:00:00 00:00:00 H, PROVIDER e2-9ql0-61x 52f-4d 8d-9 Health 0-ue4xwm462 596-929d1e 0f4 5cbb75 2016-07-14 2016-07-14 Outpatient CONTRERAS, [facility] jmm039lg-1k f [id number] Access 00:00:00 00:00:00 MIRTA 22-4926-a4f 486-43ef-b Health f-18925352y 58e-c764a4 alexander 4a23b4 2016-07-14 2016-07-14 Outpatient TIMA, [facility] xem170hm-7n b38 8bj9v-2 Access 00:00:00 00:00:00 OSMAN 22-4926-a4f 1l8-7b05-h Health f-49193903n 532-cac9af alexander bf28b2 2016-07-06 2016-07-06 Outpatient [facility] 107 [id number] Access 00:00:00 00:00:00 H, PROVIDER Barry garcia 2016-07-06 2016-07-06 Outpatient [facility] 6lm0n0p4-5f 741m1mr1-f Access 00:00:00 00:00:00 H, PROVIDER e2-8co1-38e 7e3-46 ad-b Health 0-cq2opv167 60a-96291k 0f4 579487 8397-04-10 2016-07-06 Outpatient TIMA, [facility] slu209xi-1m ca6 0064f-c Access 00:00:00 00:00:00 OSMAN 22-4926-a4f 308-477e-b Health f-29790285l 7v7-v6f79u alexander befcac 2016-07-06 2016-07-06 Outpatient CONTRERAS, [facility] kkl895lf-4d a 38o583b-1 Access 00:00:00 00:00:00 MIRTA 22-4926-a4f p27-3m13-1 Health f-19585837g y4w-ohr29a alexander y0337h 2016-07-01 2016-07-01 Outpatient [facility] 107 [id number] Access 00:00:00 00:00:00 H, PROVIDER Barry garcia 2016-07-01 2016-07-01 Outpatient [facility] 9as1q7r0-8s i687z6j0-5 Access 00:00:00 00:00:00 H, PROVIDER april9ao8-92x fbd-41 57-9 Health 0-xp6qwd644 0l4-87702v 0f4 13dfc5 2016-07-01 2016-07-01 Outpatient VERACHARLY [facility] [id number]-58 l57z5k90-2 Access 00:00:00 00:00:00 45-4o3f-v3a 8ef-44fa-9 Health d-w4x866636 145-03bbe1 354 734d1e 2016-07-01 2016-07-01 Outpatient IRIZARRY, [facility] 01h4255s-41 9f6 1438d-f Access 00:00:00 00:00:00 KATELINE 45-2o7i-y8r r64-1mbe- 9 Health d-m5g453526 2w8-2zg2u7 354 987836 9855-04-02 2016-06-28 Outpatient TIMA, [facility] gfa833tm-6a ba4 l1ep1-4 Access 00:00:00 00:00:00 OSMAN 22-4926-a4f fb6-4103-8 Health f-20709974y l04-7170l9 alexander 2l642b 2016-06-25 2016-06-25 Outpatient [facility] 107 [id number] Access 00:00:00 00:00:00 H, PROVIDER Barry garcia 2016-06-25 2016-06-25 Outpatient [facility] 5ne4e6c9-6u 34860fi5-4 Access 00:00:00 00:00:00 H, PROVIDER april8zf0-89h 98e-47 c8-a Health 0-hh4vfr940 e4g-h365k4 0f4 4f1aaa 2016-06-25 2016-06-25 Outpatient TIMA, [facility] zcn346fa-5e 9e0 9ri3x-7 Access 00:00:00 00:00:00 OSMAN 22-4926-a4f 533-4298-a Health f-13589845a 4j5-c2v3ck alexander [id number] 8916-03-30 2016-06-25 Outpatient ISAURA, [facility] 52a4766q-09 5d 1fhw6d-8 Access 00:00:00 00:00:00 CHRISTINA 45-9o5w-s8h v17-1130- a Health d-f2c912804 74d-bc9f79 354 [id number] 2016-06-25 2016-06-25 Outpatient ZOE, [facility] 90q7876q-13 643 a9mi5-6 Access 00:00:00 00:00:00 NAIF 45-8w4e-s9b 0p0-87s7- b Health d-b1o578036 def-275d83 354 le544t 2016-06-25 2016-06-25 Outpatient DIANE, [facility] mkx324wx-2n f ja51687-4 Access 00:00:00 00:00:00 MIRTA 22-4926-a4f c2l-09br-g Health f-82850997l 5o8-547fu4 alexander bc1d2c 2016-06-08 2016-06-08 Outpatient [facility] 107 [id number] Access 00:00:00 00:00:00 H, PROVIDER Barry garcia 2016-06-08 2016-06-08 Outpatient [facility] 8sg6l9p9-9o 49w610b7-w Access 00:00:00 00:00:00 H, PROVIDER e2-2dw0-63u d53-4b 39-b Health 0-kx0keg494 49d-bb0c97 0f4 a273a3 2016-06-08 2016-06-08 Outpatient JAMELACHARLY [facility] [id number]-00 l5ms8571-0 Access 00:00:00 00:00:00 45-3o0c-w0g 84c-42c0-9 Health d-h4g644084 644-e9c44e 354 a4d7b9 2016-06-08 2016-06-08 Outpatient IRIZARRY, [facility] [id number]-12 cdb 53954-w Access 00:00:00 00:00:00 KATELINE 45-0n2h-w3i 41d-4957- b Health d-g2p063994 4k3-l6drvz 354 38a8c2 2016-05-19 2016-05-19 Outpatient [facility] 107 [id number] Access 00:00:00 00:00:00 H, PROVIDER Barry garcia 2016-05-19 2016-05-19 Outpatient [facility] 8md2p5n6-6g 9m3wg7c7-4 Access 00:00:00 00:00:00 H, PROVIDER e2-4xy7-54q tonya-4c 95-a Health 0-cp6vpi151 o7x-d6ep2e 0f4 0e2daa 2016-05-19 2016-05-19 Outpatient TIMA, [facility] 9ou8z6o2-4g fc5 8v05r-6 Access 00:00:00 00:00:00 OSMAN e2-8um1-22r ad3-40d5-b Health 0-tc8fux953 bc9-a48b2d 0f4 48c078 2016-05-19 2016-05-19 Outpatient CONTRERAS, [facility] 1by4p1z3-2f 8 pr679s7-1 Access 00:00:00 00:00:00 MIRTA pierre-8by0-22h 6v1-9781-e Health 0-xn8nwk728 x64-i5a546 0f4 39beb0 2016-05-15 2016-05-15 Outpatient [facility] [id number] Access 00:00:00 00:00:00 H, PROVIDER Barry garcia 2016-05-15 2016-05-15 Outpatient [facility] 5ed7b8i3-7w t34sb12s-g Access 00:00:00 00:00:00 H, PROVIDER e2-8bl7-27b bbe-4f 60-b Health 0-yv9yxr394 941-41ae95 0f4 yu5142 2016-05-15 2016-05-15 Outpatient CONTRERAS, [facility] [id number]-07 f s2y1z69-6 Access 00:00:00 00:00:00 MIRTA 45-8m5p-f4d 7e8-6450-0 Health d-h4p965819 311-o5a691 354 835fae 2016-05-15 2016-05-15 Outpatient OMORI, [facility] 06o1791b-10 2b7 61g17-2 Access 00:00:00 00:00:00 NAIF 45-6z0c-h5m 373-4ac8- b Health d-s8e590820 7a2-j659lb 354 rd4754 2016-05-15 2016-05-15 Outpatient ISAURA, [facility] 70i7691m-61 d3 7sqti4-6 Access 00:00:00 00:00:00 CHRISTINA 45-3k7b-y9t q71-3173- a Health d-v8l660853 bed-36993a 354 67g428 2016-05-15 2016-05-15 Outpatient IRIZARRY, [facility] 72c3269x-72 e10 i7090-9 Access 00:00:00 00:00:00 RAMYBRIGIDA 45-6c3z-g7l g0y-7j8s- a Health d-i8c159867 358-d132b6 354 e444e3 2016-05-11 2016-05-11 Outpatient [facility] 107 [id number] Access 00:00:00 00:00:00 H, PROVIDER Barry garcia 2016-05-11 2016-05-11 Outpatient [facility] 0xp7j0j6-6x 0a463q7g-3 Access 00:00:00 00:00:00 H, PROVIDER e2-4cr2-91j 986-4e 16-9 Health 0-fj8pxo494 9e6-07x952 0f4 961880 5249-02-13 2016-05-11 Outpatient FOREIGN, [facility] [id number]-87 83ok82p0-5 Access 00:00:00 00:00:00 FRANKLIN 45-3d2m-a2x ee0-4498-a Health d-s1k141447 cb7-627bcc 354 62c67e 2016-05-11 2016-05-11 Outpatient DIANE, [facility] 35y0873a-89 f 5gj3okd-u Access 00:00:00 00:00:00 MIRTA 45-1v4g-z0r 36e-4988-b Health d-b1w433489 [facility] 727e3d 2016-05-08 2016-05-08 Outpatient [facility] 107 [id number] Access 00:00:00 00:00:00 H, PROVIDER Barry garcia 2016-05-08 2016-05-08 Outpatient [facility] 5vp6g3z0-4u 8216q01d-6 Access 00:00:00 00:00:00 H, PROVIDER e2-2ds3-62y e1f-48 2e-8 Health 0-qw6mov076 2db-mos609 0f4 bc16c2 2016-05-08 2016-05-08 Outpatient SHELBY, [facility] 9wi6b8j7-9h 18c i2325-b Access 00:00:00 00:00:00 SAMANTHA e2-1oi8-42i 27d-42df- a Health 0-ad5rxt365 bb7-30279n 0f4 87q277 2016-05-08 2016-05-08 Outpatient CONTRERAS, [facility] 4jt2z3k4-3p 3 p498g2y-6 Access 00:00:00 00:00:00 MIRTA e2-5vo5-72c 353-45e9-a Health 0-tl9zaf071 be5-c73172 0f4 8412be 2016-05-05 2016-05-05 Outpatient SHELBY, [facility] 6ei8z6u7-4h 773 j9m4n-6 Access 00:00:00 00:00:00 SAMANTHA e2-0hc5-37n 09b-4a43- a Health 0-tk4scl357 83f-02ffd4 0f4 8eed89 2016-05-04 2016-05-04 Outpatient [facility] 107 [id number] Access 00:00:00 00:00:00 H, PROVIDER Barry garcia 2016-05-04 2016-05-04 Outpatient [facility] 8lu2t6f5-6h 86dkjhh4-3 Access 00:00:00 00:00:00 H, PROVIDER e2-9yo1-12q 964-4e b0-8 Health 0-lq1zbn119 fd5-e283fd 0f4 1cba2b 2016-05-04 2016-05-04 Outpatient SHELBY, [facility] 0vf8d7c3-4t c7e 5z080-3 Access 00:00:00 00:00:00 SAMANTHA e2-5gz4-12z 677-4bd7- b Health 0-gt0kpe785 14f-f6fe70 0f4 26403e 2016-05-04 2016-05-04 Outpatient DIANE, [facility] 2tt8v4j0-8l d z18542s-s Access 00:00:00 00:00:00 MIRTA e2-8qk2-16s 294-4fb9-a Health 0-am0kal508 51f-f628b0 0f4 s3595y 2016-04-27 2016-04-27 Outpatient [facility] 107 [id number] Access 00:00:00 00:00:00 H, PROVIDER Barry garcia 2016-04-27 2016-04-27 Outpatient [facility] 7yx4p5x8-6p w735ba08-2 Access 00:00:00 00:00:00 H, PROVIDER e2-1ah1-76c 0c7-4f f1-8 Health 0-av5wjl662 de9-3790eb 0f4 4239d8 2016-04-27 2016-04-27 Outpatient DIANE, [facility] 1bp8z9g3-4s 3 3oxf218-8 Access 00:00:00 00:00:00 MIRTA e2-2vb6-78x 9k0-5v38-s Health 0-qw4dpy225 8s9-w23876 0f4 7k055f 2016-04-27 2016-04-27 Outpatient DESTINY, [facility] 3qd5s2z9-8g edf 7t7l1-q Access 00:00:00 00:00:00 MELVA e2-2bc1-33g 4fb-4099-9 Health 0-pr2mqf605 ca8-42b5cf 0f4 047ded 2016-04-24 2016-04-24 Outpatient [facility] 107 [id number] Access 00:00:00 00:00:00 H, PROVIDER Barry garcia 2016-04-24 2016-04-24 Outpatient [facility] 0ex8v3t9-0r lt5gpm3z-t Access 00:00:00 00:00:00 H, PROVIDER e2-5xw5-97t 5aa-41 ee-8 Health 0-ob1sgd913 [facility]-d53693 0f4 t4523i 2016-04-24 2016-04-24 Outpatient FOREIGN, [facility] 57q4684w-34 w44qd653-3 Access 00:00:00 00:00:00 FRANKLIN 45-5x8r-n4c 2y5-4r17-2 Health d-n0u406464 fee-5ze619 354 f7e46e 2016-04-24 2016-04-24 Outpatient ISAURA, [facility] 98e9373b-43 47 5r59d5-0 Access 00:00:00 00:00:00 CHRISTINA 45-8v4g-h4x 287-4cce- 9 Health d-z1q617360 9o5-054j09 354 0c8ebc 2016-04-24 2016-04-24 Outpatient SHELBY, [facility] 2ep4h2z0-9a 978 9y313-y Access 00:00:00 00:00:00 SAMANTHA e2-2ux2-74f 3ec-4aa4- 8 Health 0-ko0tgl431 w86-37lwc9 0f4 cfdb01 2016-04-24 2016-04-24 Outpatient DIANE, [facility] 9ds1d6z2-2i 3 i0dw3g6-6 Access 00:00:00 00:00:00 MIRTA e2-2eb2-73f 39f-490c-b Health 0-bg6nqo248 8ce-a94b3d 0f4 611fdf 2016-04-24 2016-04-24 Outpatient DIANE, [facility] 13l7984j-59 2 8663281-t Access 00:00:00 00:00:00 MIRTA 45-0t5x-w8a 86a-4439-a Health d-z8w182951 a4j-84v5vz 354 218d45 2016-04-24 2016-04-24 Outpatient IRIZARRY, [facility] [id number]-09 fc7 8687c-4 Access 00:00:00 00:00:00 KATELINE 45-0t4r-y1n i9w-9z17- a Health d-n0v441570 e8x-6is039 354 9f3b30 2016-04-24 2016-04-24 Outpatient ZOE, [facility] [id number]-93 d38 b5b57-5 Access 00:00:00 00:00:00 NAIF 45-7h1h-x2b 768-4bfb- b Health d-c4s118362 r6o-34i6r4 354 4dd6fd 2016-04-23 2016-04-23 Outpatient [facility] 107 [id number] Access 00:00:00 00:00:00 H, PROVIDER Barry garcia 2016-04-23 2016-04-23 Outpatient [facility] 4nc7o7f3-0o e9sy1t78-d Access 00:00:00 00:00:00 H, PROVIDER april0yn4-92e be8-4b 21-9 Health 0-ln0xru201 3dc-5f1e84 0f4 22d77d 2016-04-23 2016-04-23 Outpatient DIANE, [facility] [id number]-77 6 z91i88b-z Access 00:00:00 00:00:00 MIRTA 45-0p7r-k0u 994-45ef-b Health d-p0a655456 5b7-o9438l 354 51ffb4 2016-04-23 2016-04-23 Outpatient FOREIGN, [facility] 82v7948i-08 14t431ee-l Access 00:00:00 00:00:00 FRANKLIN 45-2b2s-v2i eaf-4e51-9 Health d-p1k069916 4z4-m0s952 354 7999a2 2016-04-20 2016-04-20 Outpatient [facility] 107 [id number] Access 00:00:00 00:00:00 H, PROVIDER Barry garcia 2016-04-20 2016-04-20 Outpatient [facility] 2sf0q3b3-6a 9417524j-7 Access 00:00:00 00:00:00 H, PROVIDER april7ve2-21h a9b-45 15-9 Health 0-ar2fpz944 7n0-018010 0f4 843447 3113-01-23 2016-04-20 Outpatient DESTINY, [facility] 2rp0e7k0-7h 407 33r1f-q Access 00:00:00 00:00:00 MELVA e2-5ff0-20u 067-4720-a Health 0-fy9krb649 679-47bd8d 0f4 636a60 2016-04-20 2016-04-20 Outpatient DIANE, [facility] 7js6w4k3-7n 2 84zyx7d-o Access 00:00:00 00:00:00 MIRTA e2-2cw2-61g 373-4fb8-8 Health 0-pk8jpt302 1a2-jy7079 0f4 3b9fb0 2016-04-17 2016-04-17 Outpatient [facility] [id number] Access 00:00:00 00:00:00 H, PROVIDER Barry garcia 2016-04-17 2016-04-17 Outpatient [facility] 7sh5g7i4-5u [id number]-f Access 00:00:00 00:00:00 H, PROVIDER april3of9-93e 7cd-42 99-a Health 0-fn9tfk159 e39-c2b5t0 0f4 685c34 2016-04-07 2016-04-07 Outpatient [facility] [id number] Access 00:00:00 00:00:00 H, PROVIDER Barry garcia 2016-04-07 2016-04-07 Outpatient [facility] 8me4e3c7-3v 65x3aod8-s Access 00:00:00 00:00:00 H, PROVIDER e2-8fo3-92u f6e-4e 34-8 Health 0-ob4llh818 026-e65fd2 0f4 3f7d68 2016-04-07 2016-04-07 Outpatient TIMA, [facility] [id number]-3l [id number] b0z82-g Access 00:00:00 00:00:00 OSMAN 22-4926-a4f t0f-2oc1-p Health f-[id number] 89b-711bf4 alexander yv989o 2016-04-07 2016-04-07 Outpatient TIMA, [facility] 5oo6l6t0-8e 515 ffab0-4 Access 00:00:00 00:00:00 OSMAN e2-6ls2-21m 605-4ff2-a Health 0-ts7kvg801 18f-58h491 0f4 130b3b 2016-04-07 2016-04-07 Outpatient CONTRERAS, [facility] jds613jq-1f 8 [id number] Access 00:00:00 00:00:00 MIRTA 22-4926-a4f 57e-49df-a Health f-[id number] 23e-006f72 alexander 6f595m 2016-04-06 2016-04-06 Outpatient [facility] [id number] Access 00:00:00 00:00:00 H, PROVIDER Barry garcia 2016-04-06 2016-04-06 Outpatient [facility] 8ld3n5k7-1m [id number] Access 00:00:00 00:00:00 H, PROVIDER e2-4kx1-20s 933-4f 57-9 Health 0-oi0bwi787 cdf-f04f62 0f4 87r869 2016-04-06 2016-04-06 Outpatient TIMA, [facility] 6df7k5x9-9r c72 w80c7-0 Access 00:00:00 00:00:00 OSMAN e2-9bs0-65p v6v-1m74-q Health 0-ml3mom510 o47-78723f 0f4 ad40b7 2016-04-06 2016-04-06 Outpatient CONTRERAS, [facility] 5ql4n4w7-4x 3 gh583n9-p Access 00:00:00 00:00:00 MIRTA e2-8fn7-32j eb2-4dd6-b Health 0-sx4eih346 9fd-dc32d8 0f4 76u688 2016-03-26 2016-03-26 Outpatient [facility] [id number] Access 00:00:00 00:00:00 H, PROVIDER Barry garcia 2016-03-26 2016-03-26 Outpatient [facility] 2ue1t6k4-3y 2r44m0s1-w Access 00:00:00 00:00:00 H, PROVIDER april6gj3-74d f3d-41 a6-a Health 0-mm3jrv001 ba9-6872c4 0f4 [id number] 6049-12-29 2016-03-26 Outpatient OMORI, [facility] zbn577jh-5b 8bc 6qqa5-4 Access 00:00:00 00:00:00 NAIF Bravo4926-a4f 598-4848- a Health f-54082314n 098-293a08 alexander mq857f 2016-03-26 2016-03-26 Outpatient CONTRERAS, [facility] qqh038dt-8v 1 qx28g9q-2 Access 00:00:00 00:00:00 MIRTA 22-4926-a4f 6ee-4ff7-b Health f-63744988i 583-72eac5 alexander 326a7e 2016-03-26 2016-03-26 Outpatient IRIZARRY, [facility] yvd130sm-7s 576 9n7du-0 Access 00:00:00 00:00:00 SUKUMAR Bravo4926-a4f 1h7-6e35- 8 Health f-91816794p 9cc-5g4805 alexander 0b4fc0 2016-03-25 2016-03-25 Outpatient [facility] [id number] Access 00:00:00 00:00:00 H, PROVIDER Barry garcia 2016-03-25 2016-03-25 Outpatient [facility] 3vq0n4m5-0r 03j45d15-a Access 00:00:00 00:00:00 H, PROVIDER e2-7we9-44j dd6-45 84-8 Health 0-lm8uls923 2m9-p99rzv 0f4 zz256h 2016-03-25 2016-03-25 Outpatient TIMA, [facility] [id number]-9k [id number] 65w74-3 Access 00:00:00 00:00:00 OSMAN 22-4926-a4f 065-44df-b Health f-85028032m 819-2699d1 alexander 8f5a2f 2016-03-25 2016-03-25 Outpatient CONTRERAS, [facility] wab840qv-5f 9 66au8b7-b Access 00:00:00 00:00:00 MIRTA 22-4926-a4f e80-2g6v-2 Health f-10025584y 48f-8ad8b4 alexander b50eed 2016-03-06 2016-03-06 Outpatient [facility] [id number] Access 00:00:00 00:00:00 H, PROVIDER Barry garcia 2016-03-06 2016-03-06 Outpatient [facility] 2dv4k3e5-6j [id number] Access 00:00:00 00:00:00 H, PROVIDER april4jw1-19e f9e-49 00-9 Health 0-mp7tls861 84c-5h9470 0f4 08e313 2016-03-06 2016-03-06 Outpatient MENDIETA, [facility] msz461ra-4q da 80fadd-2 Access 00:00:00 00:00:00 CHRISTINA 22-4926-a4f 1k7-1m4f- a Health f-[id number] l69-164q71 alexander 4c9b58 2016-03-06 2016-03-06 Outpatient DIANE, [facility] jbg684na-3w 3 9i3russ-r Access 00:00:00 00:00:00 MIRTA 22-4926-a4f 95d-4894-8 Health f-[id number] 41e-08a2d9 alexander 2085f3 2016-03-03 2016-03-03 Outpatient TIMA, [facility] aal637tj-8f 11d i0979-4 Access 00:00:00 00:00:00 OSMAN 22-4926-a4f 1fb-4f0a-a Health f-44376208x 780-62j334 alexander 2abc72 2016-02-28 2016-02-28 Outpatient [facility] [id number] Access 00:00:00 00:00:00 H, PROVIDER Barry garcia 2016-02-28 2016-02-28 Outpatient [facility] 8iu3t2b7-5b b30qn4m0-4 Access 00:00:00 00:00:00 H, PROVIDER e2-5qs9-58c 122-40 d1-a Health 0-wl6jir968 cd8-8e0dd4 0f4 c9ee35 2016-02-28 2016-02-28 Outpatient CONTRERAS, [facility] rog715cu-7u 3 139vx1q-3 Access 00:00:00 00:00:00 MIRTA 22-4926-a4f af1-4c49-8 Health f-54556627p 251-7271d4 alexander 5a4e2f 2016-02-28 2016-02-28 Outpatient TIMA, [facility] vgk305qs-1v 30e 2dmk7-0 Access 00:00:00 00:00:00 OSMAN 22-4926-a4f ca3-4e7f-9 Health f-51550847x 4v5-u838z4 alexander 5fb9b9 2016-02-25 2016-02-25 Outpatient DESTINY, [facility] 6ag9n5m7-2v 882 p6je9-e Access 00:00:00 00:00:00 MELVA e2-2wx3-10e 6k3-4bk0-0 Health 0-jm5zsy261 [id number]-h69931 0f4 be84b6 2016-02-24 2016-02-24 Outpatient DESTINY, [facility] 3ke3z2h7-3j [id number] 6112d-8 Access 00:00:00 00:00:00 MELVA e2-5jl4-26g 522-4d0a-8 Health 0-bp3rqp942 3ed-40eaf8 0f4 0f12d2 2016-02-18 2016-02-18 Outpatient [facility] [id number] Access 00:00:00 00:00:00 H, PROVIDER Barry garcia 2016-02-18 2016-02-18 Outpatient [facility] 9aa1v8b3-5u g4fx49wo-3 Access 00:00:00 00:00:00 H, PROVIDER e2-9bi5-28p 82f-43 1a-b Health 0-rm2fag716 u0u-60105l 0f4 5abef2 2016-02-18 2016-02-18 Out[facility] [facility] 1zd2y8y3-1v 2fa 68f10-3 Access 00:00:00 00:00:00 MELVA e2-9yi4-33u k9h-0b0t-v Health 0-th4vdp349 279-b1d14b 0f4 e2f42d 2016-02-18 2016-02-18 Outpatient CONTRERAS, [facility] 0dv5n3p8-3w 8 [id number] Access 00:00:00 00:00:00 MIRTA e2-0df7-60n 8u1-4147-o Health 0-nm7dte886 alexander-e606c4 0f4 149c44 2016-02-10 2016-02-10 Outpatient TIMA, [facility] 9xu6j0m1-1m 0be 6xhj5-o Access 00:00:00 00:00:00 OSMAN e2-3sg7-16h 0eb-4eb1-a Health 0-qq9hlw200 [id number]-816292 0f4 64ba33 2016-02-06 2016-02-06 Outpatient ALLISON, [facility] [id number] [address] [place] [address] 10:32:12 15:36:05 NAIMA Omer [facility] antonio 2016-01-30 2016-01-30 Outpatient TIMA, [facility] ruw615ih-3c 003 [id number] Access 00:00:00 00:00:00 OSMAN 22-4926-a4f j19-6m58-q Health f-[id number] 30e-776d1f alexander b29d1e 2016-01-28 2016-01-28 Outpatient [facility] [id number] Access 00:00:00 00:00:00 H, PROVIDER Barry garcia 2016-01-28 2016-01-28 Outpatient [facility] 5xv6b9k9-8d [id number] Access 00:00:00 00:00:00 H, PROVIDER e2-8gn9-67o d0d-4c 90-b Health 0-pe5bnw426 cac-1rl211 0f4 21fba1 2016-01-28 2016-01-28 Outpatient ZAGALA, [facility] 9gp6v3f4-2m 2ec c67uj-1 Access 00:00:00 00:00:00 MELVA e2-7zr6-18r u11-4fv0-2 Health 0-ui2ubn615 8j0-p230ea 0f4 5909cc 2016-01-28 2016-01-28 Outpatient TIMA, [facility] 0lu6n7w1-5c af0 7j2g3-d Access 00:00:00 00:00:00 OSMAN e2-3oe1-72o 855-4c09-9 Health 0-sy0csd734 8i2-lf4m41 0f4 dd65fd 2016-01-28 2016-01-28 Outpatient CONTRERAS, [facility] 6es9t1m2-5z 2 [id number] Access 00:00:00 00:00:00 MIRTA e2-8ks1-71a 5h9-9c50-3 Health 0-qj0rsh462 j07-t42y91 0f4 226cf1 2016-01-27 2016-01-27 Outpatient [facility] [id number] Access 00:00:00 00:00:00 H, PROVIDER Barry garcia 2016-01-27 2016-01-27 Outpatient [facility] 1gg9b7s7-7e [id number] Access 00:00:00 00:00:00 H, PROVIDER april9nn3-45v 6ce-4b 28-b Health 0-xo8nxq227 7z3-24c204 0f4 311f8d 2016-01-27 2016-01-27 Outpatient TIMA, [facility] scf321tj-3i 169 n6f18-r Access 00:00:00 00:00:00 OSMAN 22-4926-a4f c47-38wz-s Health f-[id number] [id number]-[id number] alexander 311d01 2016-01-21 2016-01-21 Outpatient [facility] [id number] Access 00:00:00 00:00:00 H, PROVIDER Barry garcia 2016-01-21 2016-01-21 Outpatient [facility] [id number] [id number] Access 00:00:00 00:00:00 H, PROVIDER gabby-2qo2-17l be4-45 98-a Health 0-ek0yxm224 79f-33e35e 0f4 b6a3ba 2016-01-21 2016-01-21 Outpatient HERNAEZ, [facility] ext997ik-9f b0 mwr674-f Access 00:00:00 00:00:00 MAEVE Bravo4926-a4f 971-46ae-b Health f-[id number] 5db-ceb82a alexander 06ca45 2016-01-21 2016-01-21 Outpatient OMORI, [facility] xtf643gt-4k c83 h32r2-a Access 00:00:00 00:00:00 NAIF Bravo4926-a4f 1o3-2b6q- b Health f-04631454r 44d-88f26d alexander e4i146 2015-10-02 2015-10-02 Outpatient OMORI, [facility] unk994af-[id number] c00 [id number] Access 00:00:00 00:00:00 NAIF Bravo4926-a4f 809-4330- b Health f-01096452s 4u0-fpi270 alexander 9ebe0b 2015-10-01 2015-10-01 Outpatient [facility] 107 [id number] Access 00:00:00 00:00:00 H, PROVIDER Barry garcia 2015-10-01 2015-10-01 Outpatient [facility] 1dh3g1j2-7g [id number] Access 00:00:00 00:00:00 H, PROVIDER e2-9ji8-81c ed0-46 e6-9 [facility] 0-ue4udy846 57e-4efa05 0f4 mac502 2015-10-01 2015-10-01 Outpatient OMORI, [facility] dsp358vr-8x 83d mi1q3-n Access 00:00:00 00:00:00 NAIF Estrella-4926-a4f 7v5-97m6- 9 Health f-[id number] b75-wd1074 alexander pd248q 2015-10-01 2015-10-01 Outpatient CONTRERAS, [facility] kob122cv-3c 4 bcav84u-3 Access 00:00:00 00:00:00 MIRTA Shelly4926-a4f 4h6-3ai5-c Health f-[id number] o55-1z67z5 alexander c704de 2015-09-26 2015-09-26 Outpatient [facility] [id number] Access 00:00:00 00:00:00 H, PROVIDER Barry garcia 2015-09-26 2015-09-26 Outpatient [facility] 0xj8b5p7-4q [id number] Access 00:00:00 00:00:00 H, PROVIDER april7fb6-91u 8ad-4b 20-9 Health 0-kp1ehb852 9x7-l48a2k 0f4 1f3c6d 2015-09-26 2015-09-26 Outpatient DIANE, [facility] dqo459rq-2y 6 [id number]-2 Access 00:00:00 00:00:00 MIRAT 22-4926-a4f 121-4c1d-b Health f-[id number] f8o-7r2u98 alexander [id number] 2015-09-26 2015-09-26 Outpatient OMORI, [facility] gaq760cm-0c b24 [id number] Access 00:00:00 00:00:00 NAIF 22-4926-a4f 457-48de- a Health f-[id number] b86-x02s2l alexander 9m736b 2015-09-12 2015-09-12 Outpatient [facility] 107 [id number] Access 00:00:00 00:00:00 H, PROVIDER Barry garcia 2015-09-12 2015-09-12 Outpatient [facility] 0su1r6y4-8g [id number] Access 00:00:00 00:00:00 H, PROVIDER valerie8fj1-17t 126-41 a3-b Health 0-lc8ffd766 [id number] 0f4 [id number] 2015-08-21 2015-08-21 Outpatient [facility] 107 [id number] Access 00:00:00 00:00:00 H, PROVIDER Barry garcia 2015-08-21 2015-08-21 Outpatient [facility] 4mp3g3f2-2t [id number] Access 00:00:00 00:00:00 H, PROVIDER valerie2gv1-16h f2e-44 8f-b Health 0-qk0loj263 l7r-22157r 0f4 e6de39 2015-05-22 2015-05-22 Outpatient [facility] 107 [id number] Access 00:00:00 00:00:00 H, PROVIDER Barry garcia 2015-05-22 2015-05-22 Outpatient [facility] [id number] [id number] Access 00:00:00 00:00:00 H, PROVIDER valerie3bf9-55v 2c0-43 14-b Health 0-uv7uin389 73a-u97857 0f4 1acb06 2015-05-21 2015-05-21 Outpatient [facility] 107 [id number] Access 00:00:00 00:00:00 H, PROVIDER Barry garcia 2015-05-21 2015-05-21 Outpatient [facility] 8of2q8b6-4a [id number] Access 00:00:00 00:00:00 H, PROVIDER april8tn5-27n 9f9-45 a3-8 Health 0-mp3rqu711 5bd-493e87 0f4 52k862 2015-05-03 2015-05-03 Outpatient JONAS, [facility] 3nd1z6m1-2h 56 [id number] Access 15:36:00 15:36:00 MAEVE gabby-7yt9-44g r6s-3tl8-f Health 0-ur4ogt909 3z2-483bb9 0f4 539215 9989-02-05 2015-05-03 Outpatient [facility] 107 [id number] Access 00:00:00 00:00:00 H, PROVIDER Barry garcia 2015-05-03 2015-05-03 Outpatient [facility] 3oz0u1f6-0d [id number] Access 00:00:00 00:00:00 H, PROVIDER gabby-4un5-17y da3-40 14-8 Health 0-ev1sso496 af9-7o7219 0f4 f3f5e9 2015-05-03 2015-05-03 Outpatient DIANE, [facility] 4zn2c0p4-4q 3 [id number]-5 Access 00:00:00 00:00:00 MIRTA e2-5rx0-66t p30-92n1-4 Health 0-rq7jma553 b0n-0aa40p 0f4 e671aa 2015-03-20 2015-03-20 Outpatient [facility] 107 [id number] Access 00:00:00 00:00:00 H, PROVIDER Barry garcia 2015-03-20 2015-03-20 Outpatient [facility] 3cy4g8d2-5j [id number] Access 00:00:00 00:00:00 H, PROVIDER tatyana7ix6-71v da0-41 96-8 Health 0-mj6coq913 65e-54ee37 0f4 41f569 2015-03-15 2015-03-15 Outpatient [facility] 107 [id number] Access 00:00:00 00:00:00 H, PROVIDER Barry garcia 2015-03-15 2015-03-15 Outpatient [facility] 3zq2a7l5-4g [id number] Access 00:00:00 00:00:00 H, PROVIDER tatyana9xi9-86g 7a2-4a a9-b Health 0-wl9lzg536 9d3-7y041c 0f4 4d45ed 2015-03-06 2015-03-06 Outpatient [facility] 107 [id number] Access 00:00:00 00:00:00 H, PROVIDER Barry garcia 2015-03-06 2015-03-06 Outpatient [facility] 6qq2c9g0-8o [id number] Access 00:00:00 00:00:00 H, PROVIDER tatyana5wy9-06m fdb-4d 58-a Health 0-zz2ikp114 q8n-95mk74 0f4 [id number] 2015-02-19 2015-02-19 Outpatient [facility] 107 [id number] Access 00:00:00 00:00:00 H, PROVIDER Barry garcia 2015-02-19 2015-02-19 Outpatient [facility] 6rh2q4e6-0o [id number] Access 00:00:00 00:00:00 H, PROVIDER emeli 127-4b 58-a Health 0-mu6cdo999 5x0-l88et7 0f4 e12e02 2015-02-18 2015-02-18 Outpatient [facility] 107 [id number] Access 00:00:00 00:00:00 H, PROVIDER Barry garcia 2015-02-18 2015-02-18 Outpatient [facility] 0xr1v5i9-4u [id number] Access 00:00:00 00:00:00 H, PROVIDER valerie2zi3-25k d47-48 5c-8 Health 0-cl7axd551 5cb-5cface 0f4 c58e5d 2015-02-12 2015-02-12 Outpatient [facility] 107 [id number] Access 00:00:00 00:00:00 H, PROVIDER Barry garcia 2015-02-12 2015-02-12 Outpatient [facility] 0ff0m3a7-9v [id number] Access 00:00:00 00:00:00 H, PROVIDER valerie8aa6-71m 279-4f 28-b Health 0-mj4kkg633 ed6-28f39e 0f4 5fa5a5 2015-02-11 2015-02-11 Outpatient [facility] [id number] Access 00:00:00 00:00:00 H, PROVIDER Barry garcia 2015-02-11 2015-02-11 Outpatient [facility] 1sq8c6t8-7j [id number]-[id number] Access 00:00:00 00:00:00 H, PROVIDER valerie3dr8-05c 925-41 78-b Health 0-mt8gcy950 5i0-0c3783 0f4 559f90 2015-02-06 2015-02-06 Outpatient [facility] 107 [id number] Access 00:00:00 00:00:00 H, PROVIDER Barry garcia 2015-02-06 2015-02-06 Outpatient [facility] 5fx9d1z6-7s [id number] Access 00:00:00 00:00:00 H, PROVIDER valerie3fj6-04h 2a8-49 15-a Health 0-ov9ccd880 074-0sg020 0f4 e08d71 2015-01-24 2015-01-24 Outpatient [facility] 107 [id number] Access 00:00:00 00:00:00 H, PROVIDER Barry garcia 2015-01-24 2015-01-24 Outpatient [facility] 5uw4i9c4-4i g53m6vq0-k Access 00:00:00 00:00:00 H, PROVIDER april6hw1-73m f80-44 d8-a Health 0-fj0drc000 180-41343p 0f4 5c4c97 2015-01-08 2015-01-08 Outpatient [facility] 107 [id number] Access 00:00:00 00:00:00 H, PROVIDER Barry garcia 2015-01-08 2015-01-08 Outpatient [facility] 2qf3q1q4-1s [id number]-c Access 00:00:00 00:00:00 H, PROVIDER valerie7us7-81e 64f-4c a3-9 Health 0-gx4icb943 i88-12ev85 0f4 [id number] 2015-01-01 2015-01-01 Outpatient [facility] 107 [id number] Access 00:00:00 00:00:00 H, PROVIDER Barry garcia 2015-01-01 2015-01-01 Outpatient [facility] 7pp7a8l7-8p [id number] Access 00:00:00 00:00:00 H, PROVIDER valerie9qf3-98n 53f-43 97-b Health 0-wo3xtn899 db7-90h027 0f4 2f88f9 2014-12-27 2014-12-27 Outpatient [facility] [id number] Access 00:00:00 00:00:00 H, PROVIDER Barry garcia 2014-12-27 2014-12-27 Outpatient [facility] 2ts7a0l3-4x [id number] Access 00:00:00 00:00:00 H, PROVIDER april3lz5-48v ca7-44 22-9 Health 0-mg8ydf476 7m8-1s0582 0f4 3eed3a 2014-12-07 2014-12-07 Outpatient [facility] 107 [id number] Access 00:00:00 00:00:00 H, PROVIDER Barry garcia 2014-12-07 2014-12-07 Outpatient [facility] 5av9h2n4-3c [id number] Access 00:00:00 00:00:00 H, PROVIDER valerie8as8-76g c82-4a dd-a Health 0-do7rik928 6ab-de3ca6 0f4 8aee2f 2014-05-08 2014-05-08 Outpatient [facility] [id number] Access 00:00:00 00:00:00 H, PROVIDER Barry garcia 2014-05-08 2014-05-08 Outpatient [facility] 1xq6p1v0-5l [id number] Access 00:00:00 00:00:00 H, PROVIDER tatyana6wk0-54l e34-45 36-8 Health 0-lu0gcm724 [id number] 0f4 aa2e28 2014-04-26 2014-04-26 Outpatient [facility] 107 [id number] Access 00:00:00 00:00:00 H, PROVIDER Barry garcia 2014-04-26 2014-04-26 Outpatient [facility] 5vo4o2e2-0g [id number]-v Access 00:00:00 00:00:00 H, PROVIDER tatyana8gz3-48r ed4-4c e6-b Health 0-zh7lno739 ef8-5a22de 0f4 4fecab 2014-04-25 2014-04-25 Outpatient [facility] [id number] Access 00:00:00 00:00:00 H, PROVIDER Barry garcia 2014-04-25 2014-04-25 Outpatient [facility] 9xr8d2e4-9d [id number]-i Access 00:00:00 00:00:00 H, PROVIDER tatyana0op5-03n 477-46 7f-9 Health 0-qg9zxm845 66f-fe43c4 0f4 574f68 2014-04-09 2014-04-09 Outpatient [facility] 107 [id number] Access 00:00:00 00:00:00 H, PROVIDER Barry garcia 2014-04-09 2014-04-09 Outpatient [facility] 0pz2n1h5-3v [id number] Access 00:00:00 00:00:00 H, PROVIDER valerie5jp3-81w 783-44 d2-9 Health 0-pm9dnq601 [id number] 0f4 1208b1 2014-03-12 2014-03-12 Outpatient [facility] [id number] Access 00:00:00 00:00:00 H, PROVIDER Barry garcia 2014-03-12 2014-03-12 [facility] 2rg8l8p4-2b [id number] Access 00:00:00 00:00:00 H, PROVIDER e2-1zm6-06x d5c-45 e4-8 [facility] 0-vr2icx105 398-95986x 0f4 [id number] Results Test Description Test Time Test Comments [facility] 2021-05-05 COMPLETE 3 VIEWS 11:37:33 [facility] 1975 [...] by: Best Mendieta MD 05/05/2021 11:37 AM [facility] Panel Description: Albumin/Creatinine Ratio,Urine 2021-01-30 17:11:00 Test Item Value Reference Range Interpretation Comme nts Creatinine, Urine (test code 54.5 mg/dL Not Estab. = 2161-8) Albumin, Urine (test code = 2814.8 ug/mL Not Estab. Results confirmed 80403-8) ondilution.<br/ >
Perform ed by:
[facility] ()

Alb/Creat Ratio (test code = 5165 mg/gcreat 0-29 H 9318-7) Normal : 0 - 29 Moderately incr eased: 30 - 300 Sev erely increased: >300

Performed by:
[facility] ()

[facility] Description: Albumin/Creatinine Ratio,[id number] 17:11:00 Test Item Value Reference Range Interpretation Comments Creatinine, Urine 54.5 mg/dL Not Estab. (test code = 2161-8) Albumin, Urine 2814.8 ug/mL Not Estab. Results confi rmed (test code = ondilution.<br/ >
P 08702-5) erformed by:
[facility] ()

Alb/Creat Ratio 5165 mg/gcreat 0-29 H (test code = Normal: 9318-7) 0 - 29 Moderately incr eased: 30 - 300 Severely increa sed: >300

Perfo rmed by:
[facility] ()

[facility] Description: Albumin/Creatinine Ratio,[id number] 17:11:00 Test Item Value Reference Range Interpretation Comments Creatinine, Urine 54.5 mg/dL Not Estab. (test code = 2161-8) Albumin, Urine 2814.8 ug/mL Not Estab. Results confi rmed (test code = ondilution.<br/ >
P 30349-6) erformed by:
[facility] ()

Alb/Creat Ratio 5165 mg/gcreat 0-29 H (test code = Normal: 9318-7) 0 - 29 Moderately incr eased: 30 - 300 Severely increa sed: >300

Perfo rmed by:
[facility] ([place])

[facility] Description: Albumin/Creatinine Ratio,[id number] 17:11:00 Test Item Value Reference Range Interpretation Comments Creatinine, Urine 54.5 mg/dL Not Estab. (test code = 2161-8) Albumin, Urine 2814.8 ug/mL Not Estab. Results confi rmed (test code = ondilution.<br/ >
P 76690-0) erformed by:
[facility] ([place])

Alb/Creat Ratio 5165 mg/gcreat 0-29 H (test code = Normal: 9318-7) 0 - 29 Moderately incr eased: 30 - 300 Severely increa sed: >300

Perfo rmed by:
[facility] ([place])

[facility] Description: Albumin/Creatinine Ratio,[id number] 17:11:00 Test Item Value Reference Range Interpretation Comments Creatinine, Urine 54.5 mg/dL Not Estab. (test code = 2161-8) Albumin, Urine 2814.8 ug/mL Not Estab. Results confi rmed (test code = ondilution.<br/ >
P 30835-9) erformed by:
[facility] ([place])

Alb/Creat Ratio 5165 mg/gcreat 0-29 H (test code = Normal: 9318-7) 0 - 29 Moderately incr eased: 30 - 300 Severely increa sed: >300

Perfo rmed by:
[facility] ([place])

[facility] Description: Albumin/Creatinine Ratio,[id number] 17:11:00 Test Item Value Reference Range Interpretation Comments Creatinine, Urine 54.5 mg/dL Not Estab. (test code = 2161-8) Albumin, Urine 2814.8 ug/mL Not Estab. Results confi rmed (test code = ondilution.<br/ >
P 71990-6) erformed by:
[facility] ([place])

Alb/Creat Ratio 5165 mg/gcreat 0-29 H (test code = Normal: 9318-7) 0 - 29 Moderately incr eased: 30 - 300 Severely increa sed: >300

Perfo rmed by:
[facility] ([place])

[facility] Description: Albumin/Creatinine Ratio,[id number] 17:11:00 Test Item Value Reference Range Interpretation Comments Creatinine, Urine 54.5 mg/dL Not Estab. (test code = 2161-8) Albumin, Urine 2814.8 ug/mL Not Estab. Results confi rmed (test code = ondilution.<br/ >
P 49657-7) erformed by:
[facility] ([place])

Alb/Creat Ratio 5165 mg/gcreat 0-29 H (test code = Normal: 9318-7) 0 - 29 Moderately incr eased: 30 - 300 Severely increa sed: >300

Perfo rmed by:
[facility] ([place])

[facility] Description: Albumin/Creatinine Ratio,[id number] 17:11:00 Test Item Value Reference Range Interpretation Comments Creatinine, Urine 54.5 mg/dL Not Estab. (test code = 2161-8) Albumin, Urine 2814.8 ug/mL Not Estab. Results confi rmed (test code = ondilution.<br/ >
P 52977-0) erformed by:
[facility] ([place])

Alb/Creat Ratio 5165 mg/gcreat 0-29 H (test code = Normal: 9318-7) 0 - 29 Moderately incr eased: 30 - 300 Severely increa sed: >300

Perfo rmed by:
[facility] ()

[facility] Description: Albumin/Creatinine Ratio,[id number] 17:11:00 Test Item Value Reference Range Interpretation Comments Creatinine, Urine 54.5 mg/dL Not Estab. (test code = 2161-8) Albumin, Urine 2814.8 ug/mL Not Estab. Results confi rmed (test code = ondilution.<br/ >
P 52253-6) erformed by:
[facility]

Alb/Creat Ratio 5165 mg/gcreat 0-29 H (test code = Normal: 9318-7) 0 - 29 Moderately incr eased: 30 - 300 Severely increa sed: >300

Perfo rmed by:
[facility] [employer] [place] ([place])

[facility] Description: Albumin/Creatinine Ratio,[id number] 17:11:00 Test Item Value Reference Range Interpretation Comments Creatinine, Urine 54.5 mg/dL Not Estab. (test code = 2161-8) Albumin, Urine 2814.8 ug/mL Not Estab. Results confi rmed (test code = ondilution.<br/ >
P 36146-0) erformed by:
[facility]

Alb/Creat Ratio 5165 mg/gcreat 0-29 H (test code = Normal: 9318-7) 0 - 29 Moderately incr eased: 30 - 300 Severely increa sed: >300

Perfo rmed by:
[facility] ([facility]

[facility] Description: Albumin/Creatinine Ratio,[id number] 17:11:00 Test Item Value Reference Range Interpretation Comments Creatinine, Urine 54.5 mg/dL Not Estab. (test code = 2161-8) Albumin, Urine 2814.8 ug/mL Not Estab. Results confi rmed (test code = ondilution.<br/ >
P 00842-9) erformed by:
[facility] ([place]

Alb/Creat Ratio 5165 mg/gcreat 0-29 H (test code = Normal: 9318-7) 0 - 29 Moderately incr eased: 30 - 300 Severely increa sed: >300

Perfo rmed by:
[facility] ([place])

[facility] Description: Albumin/Creatinine Ratio,[id number] 17:11:00 Test Item Value Reference Range Interpretation Comments Creatinine, Urine 54.5 mg/dL Not Estab. (test code = 2161-8) Albumin, Urine 2814.8 ug/mL Not Estab. Results confi rmed (test code = ondilution.<br/ >
P 76448-8) erformed by:
[facility] [place] ([place])

Alb/Creat Ratio 5165 mg/gcreat 0-29 H (test code = Normal: 9318-7) 0 - 29 Moderately incr eased: 30 - 300 Severely increa sed: >300

Perfo rmed by:
[facility] ([place])

[facility] Description: Natriuretic peptide B [Mass/volume] in Serum or [id number] 13:36:00 Test Item Value Reference Range Interpretation Comments B-Type Natriuretic Peptide (test 396.8 pg/mL 0.0-100.0 H code = 55672-4) [facility] Description: Natriuretic peptide B [Mass/volume] in Serum or [id number] 13:36:00 Test Item Value Reference Range Interpretation Comments B-Type Natriuretic Peptide (test 396.8 pg/mL 0.0-100.0 H code = 12726-2) [facility] Description: Natriuretic peptide B [Mass/volume] in Serum or [id number] 13:36:00 Test Item Value Reference Range Interpretation Comments B-Type Natriuretic Peptide (test 396.8 pg/mL 0.0-100.0 H code = 87966-8) [facility] Description: Natriuretic peptide B [Mass/volume] in Serum or [id number] 13:36:00 Test Item Value Reference Range Interpretation Comments B-Type Natriuretic Peptide (test 396.8 pg/mL 0.0-100.0 H code = 76719-2) [facility] Description: Natriuretic peptide B [Mass/volume] in Serum or [id number] 13:36:00 Test Item Value Reference Range Interpretation Comments B-Type Natriuretic Peptide (test 396.8 pg/mL 0.0-100.0 H code = 58610-8) [facility] Description: Natriuretic peptide B [Mass/volume] in Serum or [id number] 13:36:00 Test Item Value Reference Range Interpretation Comments B-Type Natriuretic Peptide (test 396.8 pg/mL 0.0-100.0 H code = 24713-8) [facility] Description: Natriuretic peptide B [Mass/volume] in Serum or [id number] 13:36:00 Test Item Value Reference Range Interpretation Comments B-Type Natriuretic Peptide (test 396.8 pg/mL 0.0-100.0 H code = 83396-6) [facility] Description: Natriuretic peptide B [Mass/volume] in Serum or [id number] 13:36:00 Test Item Value Reference Range Interpretation Comments B-Type Natriuretic Peptide (test 396.8 pg/mL 0.0-100.0 H code = 54074-7) [facility] Description: Natriuretic peptide B [Mass/volume] in Serum or [id number] 13:36:00 Test Item Value Reference Range Interpretation Comments B-Type Natriuretic Peptide (test 396.8 pg/mL 0.0-100.0 H code = 54577-9) [facility] Description: Natriuretic peptide B [Mass/volume] in Serum or [id number] 13:36:00 Test Item Value Reference Range Interpretation Comments B-Type Natriuretic Peptide (test 396.8 pg/mL 0.0-100.0 H code = 64160-3) [facility] Description: Natriuretic peptide B [Mass/volume] in Serum or [id number] 13:36:00 Test Item Value Reference Range Interpretation Comments B-Type Natriuretic Peptide (test 396.8 pg/mL 0.0-100.0 H code = 39011-4) [facility] Description: Natriuretic peptide B [Mass/volume] in Serum or [id number] 13:36:00 Test Item Value Reference Range Interpretation Comments B-Type Natriuretic Peptide (test 396.8 pg/mL 0.0-100.0 H code = 50334-2) [facility] Description: Hemoglobin A1c/Hemoglobin.total in Blood 2021-01-30 12:27:00 Test Item Value Reference Range Interpretation Comments Hemoglobin A1c (test code 8.7 % 4.8-5.6 H = 4548-4) . Prediabetes: 5. 7 - 6.4 Diabetes : >6.4 Glycemic control for adults with diabetes: <7.0

P erformed by:
[facility] ()

[facility] Description: Hemoglobin A1c/Hemoglobin.total in Blood 2021-01-30 12:27:00 Test Item Value Reference Range Interpretation Comments Hemoglobin A1c (test code 8.7 % 4.8-5.6 H = 4548-4) . Prediabetes: 5. 7 - 6.4 Diabetes : >6.4 Glycemic control for adults with diabetes: <7.0

P erformed by:
[facility] ()

[facility]: Hemoglobin A1c/Hemoglobin.total in Blood 2021-01-30 12:27:00 Test Item Value Reference Range Interpretation Comments Hemoglobin A1c (test code 8.7 % 4.8-5.6 H = 4548-4) . Prediabetes: 5. 7 - 6.4 Diabetes : >6.4 Glycemic control for adults with diabetes: <7.0

P erformed by:
[facility] ([place])

[facility] Description: Hemoglobin A1c/Hemoglobin.total in Blood 2021-01-30 12:27:00 Test Item Value Reference Range Interpretation Comments Hemoglobin A1c (test code 8.7 % 4.8-5.6 H = 4548-4) . Prediabetes: 5. 7 - 6.4 Diabetes : >6.4 Glycemic control for adults with diabetes: <7.0

P erformed by:
[facility] [place] ()

[facility] Description: Hemoglobin A1c/Hemoglobin.total in Blood 2021-01-30 12:27:00 Test Item Value Reference Range Interpretation Comments Hemoglobin A1c (test code 8.7 % 4.8-5.6 H = 4548-4) . Prediabetes: 5. 7 - 6.4 Diabetes : >6.4 Glycemic control for adults with diabetes: <7.0

P erformed by:
[facility] ()

[facility] Description: Hemoglobin A1c/Hemoglobin.total in Blood 2021-01-30 12:27:00 Test Item Value Reference Range Interpretation Comments Hemoglobin A1c (test code 8.7 % 4.8-5.6 H = 4548-4) . Prediabetes: 5. 7 - 6.4 Diabetes : >6.4 Glycemic control for adults with diabetes: <7.0

P erformed by:
[facility] ()

[facility] Description: Hemoglobin A1c/Hemoglobin.total in Blood 2021-01-30 12:27:00 Test Item Value Reference Range Interpretation Comments Hemoglobin A1c (test code 8.7 % 4.8-5.6 H = 4548-4) . Prediabetes: 5. 7 - 6.4 Diabetes : >6.4 Glycemic control for adults with diabetes: <7.0

P erformed by:
[facility] ()

[facility] Description: Hemoglobin A1c/Hemoglobin.total in Blood 2021-01-30 12:27:00 Test Item Value Reference Range Interpretation Comments Hemoglobin A1c (test code 8.7 % 4.8-5.6 H = 4548-4) . Prediabetes: 5. 7 - 6.4 Diabetes : >6.4 Glycemic control for adults with diabetes: <7.0

P erformed by:
[facility] ()

[facility] Description: Hemoglobin A1c/Hemoglobin.total in Blood 2021-01-30 12:27:00 Test Item Value Reference Range Interpretation Comments Hemoglobin A1c (test code 8.7 % 4.8-5.6 H = 4548-4) . Prediabetes: 5. 7 - 6.4 Diabetes : >6.4 Glycemic control for adults with diabetes: <7.0

P erformed by:
[facility] ()

[facility] Description: Hemoglobin A1c/Hemoglobin.total in Blood 2021-01-30 12:27:00 Test Item Value Reference Range Interpretation Comments Hemoglobin A1c (test code 8.7 % 4.8-5.6 H = 4548-4) . Prediabetes: 5. 7 - 6.4 Diabetes : >6.4 Glycemic control for adults with diabetes: <7.0

P erformed by:
[facility] ()

[facility] Description: Hemoglobin A1c/Hemoglobin.total in Blood 2021-01-30 12:27:00 Test Item Value Reference Range Interpretation Comments Hemoglobin A1c (test code 8.7 % 4.8-5.6 H = 4548-4) . Prediabetes: 5. 7 - 6.4 Diabetes : >6.4 Glycemic control for adults with diabetes: <7.0

P erformed by:
[facility] ()

[facility] Description: Hemoglobin A1c/Hemoglobin.total in Blood 2021-01-30 12:27:00 Test Item Value Reference Range Interpretation Comments Hemoglobin A1c (test code 8.7 % 4.8-5.6 H = 4548-4) . Prediabetes: 5. 7 - 6.4 Diabetes : >6.4 Glycemic control for adults with diabetes: <7.0

P erformed by:
[facility] ()

[facility] [facility] Description: C reactive protein [Mass/volume] in Serum or [id number] 04:53:00 Test Item Value Reference Range Interpretation Comments C-Reactive Protein, Quant (test code 13 mg/L 0-10 H = 1987-07) [facility] Description: C reactive protein [Mass/volume] in Serum or [id number] 04:53:00 Test Item Value Reference Range Interpretation Comments C-Reactive Protein, Quant (test code 13 mg/L 0-10 H = 1987-07) [facility] Description: C reactive protein [Mass/volume] in Serum or [id number] 04:53:00 Test Item Value Reference Range Interpretation Comments C-Reactive Protein, Quant (test code 13 mg/L 0-10 H = 1987-07) [facility] Description: C reactive protein [Mass/volume] in Serum or [id number] 04:53:00 Test Item Value Reference Range Interpretation Comments C-Reactive Protein, Quant (test code 13 mg/L 0-10 H = 1987-07) [facility] Description: C reactive protein [Mass/volume] in Serum or [id number] 04:53:00 Test Item Value Reference Range Interpretation Comments C-Reactive Protein, Quant (test code 13 mg/L 0-10 H = 1987-07) [facility] Description: C reactive protein [Mass/volume] in Serum or [id number] 04:53:00 Test Item Value Reference Range Interpretation Comments C-Reactive Protein, Quant (test code 13 mg/L 0-10 H = 1987-07) [facility] Description: C reactive protein [Mass/volume] in Serum or [id number] 04:53:00 Test Item Value Reference Range Interpretation Comments C-Reactive Protein, Quant (test code 13 mg/L 0-10 H = 1987-07) [facility] Description: C reactive protein [Mass/volume] in Serum or [id number] 04:53:00 Test Item Value Reference Range Interpretation Comments C-Reactive Protein, Quant (test code 13 mg/L 0-10 H = 1987-07) [facility] Description: C reactive protein [Mass/volume] in Serum or [id number] 04:53:00 Test Item Value Reference Range Interpretation Comments C-Reactive Protein, Quant (test code 13 mg/L 0-10 H = 1987-07) [facility] Description: C reactive protein [Mass/volume] in Serum or [id number] 04:53:00 Test Item Value Reference Range Interpretation Comments C-Reactive Protein, Quant (test code 13 mg/L 0-10 H = 1987-07) [facility] Description: C reactive protein [Mass/volume] in Serum or [id number] 04:53:00 Test Item Value Reference Range Interpretation Comments C-Reactive Protein, Quant (test code 13 mg/L 0-10 H = 1987-07) [facility] Description: C reactive protein [Mass/volume] in Serum or [id number] 04:53:00 Test Item Value Reference Range Interpretation Comments C-Reactive Protein, Quant (test code 13 mg/L 0-10 H = 1987-07) [facility] Description: 25-hydroxyvitamin D3 [Mass/volume] in Serum or [id number] 03:48:00 Test Item Value Reference Range Interpretation Comments Vitamin D, 17.6 ng/mL 30.0-100.0 L Vitamin D defic iency has 25-Hydroxy (test been define d by the code = 71939-1) [place] [facility] Endocrine [facility] practice guidel ine as alevel of serum 25-OH vitamin D less than 20 ng/mL (1,2).The Endocrine Society went on to further define vitamin Dinsufficiency as a level between 21 and 29 ng/mL (2).1. IOM (Ins titute of Medicine). 2010 . Dietary reference int akes for calcium and D. [place]: [employer] .2. Dileep MF, Ela NC, Stephane blake EMERSON, et al. Evaluatio n, treatment, and prevention of vitamin D deficiency: an Endocrine Society clinica l practice guideline. [place] EM. 2010; 96(7):1911-30.< br/>
P erformed by:
[facility] ()

[facility] Description: 25-hydroxyvitamin D3 [Mass/volume] in Serum or [id number] 03:48:00 Test Item Value Reference Range Interpretation Comments Vitamin D, 17.6 ng/mL 30.0-100.0 L Vitamin D defic iency has 25-Hydroxy (test been define d by the code = 43723-8) [place] [facility] and an Endocrine So ciety practice guidel ine as alevel of serum 25-OH vitamin D less than 20 ng/mL (1,2).The Endocrine Society went on to further define vitamin Dinsufficiency as a level between 21 and 29 ng/mL (2).1. IOM (Ins titute of Medicine). 2010 . Dietary reference int akes for calcium and D. [facility]: [employer] .2. Eal Oliveros, Stephane EMERSON, et al. Evaluatio n, treatment, and prevention of vitamin D deficiency: an Endocrine Society clinica l practice guideline. [place] EM. 2010; 96(7):1911-30.< br/>
P erformed by:
[facility] ([place])

[facility] Description: 25-hydroxyvitamin D3 [Mass/volume] in Serum or [id number] 03:48:00 Test Item Value Reference Range Interpretation Comments Vitamin D, 17.6 ng/mL 30.0-100.0 L Vitamin D defic iency has 25-Hydroxy (test been define d by the code = 01940-0) [place] [facility] Endocrine [facility] practice guidel ine as alevel of serum 25-OH vitamin D less than 20 ng/mL (1,2).The Endocrine Society went on to further define vitamin Dinsufficiency as a level between 21 and 29 ng/mL (2).1. IOM (Ins [facility] [facility]). 2010 . Dietary reference int akes for calcium and D. [place]: [employer] .2. Ela Oliveros, Stephane EMERSON, et al. Evaluatio n, treatment, and prevention of vitamin D deficiency: an Endocrine Society clinica l practice guideline. [place] EM. 2010; 96(7):1911-30.< br/>
P erformed by:
[facility] ([place])

[facility] Description: 25-hydroxyvitamin D3 [Mass/volume] in Serum or [id number] 03:48:00 Test Item Value Reference Range Interpretation Comments Vitamin D, 17.6 ng/mL 30.0-100.0 L Vitamin D defic iency has 25-Hydroxy (test been define d by the code = 56791-9) [place] [facility] Endocrine So ety practice guidel ine as alevel of serum 25-OH vitamin D less than 20 ng/mL (1,2).The Endocrine Society went on to further define vitamin Dinsufficiency as a level between 21 and 29 ng/mL (2).1. IOM (Ins titute of Medicine). 2010 . Dietary reference int akes for calcium and D. [facility]: [employer] .2. Ela Oliveros, Stephane EMERSON, et al. Evaluatio n, treatment, and prevention of vitamin D deficiency: an Endocrine Society clinica l practice guideline. EM. 2010; 96(7):191-.< br/>
P erformed by:
[facility] ([place])

[facility] [employer] Description: 25-hydroxyvitamin D3 [Mass/volume] in Serum or [id number] 03:48:00 Test Item Value Reference Range Interpretation Comments Vitamin D, 17.6 ng/mL 30.0-100.0 L Vitamin D defic iency has 25-Hydroxy (test been define d by the code = 57863-2) [place] [facility]ocrine [facility] practice guidel ine as alevel of serum 25-OH vitamin D less than 20 ng/mL (1,2).The Endocrine Society went on to further define vitamin Dinsufficiency as a level between 21 and 29 ng/mL (2).1. IOM (Ins titute of Medicine). 2010 . Dietary reference int akes for calcium and D. [facility]: [employer] .2. Ela Oliveros, Stephane EMERSON, et al. Evaluatio n, treatment, and prevention of vitamin D deficiency: an Endocrine Society clinica l practice guideline. EM. 2010; 96(7):191-.< br/>
P erformed by:
[facility] ([place])

[facility] [employer] Description: 25-hydroxyvitamin D3 [Mass/volume] in Serum or [id number] 03:48:00 Test Item Value Reference Range Interpretation Comments Vitamin D, 17.6 ng/mL 30.0-100.0 L Vitamin D defic iency has 25-Hydroxy (test been define d by the code = 25497-4) [place] [facility]ocrine [facility] practice guidel ine as alevel of serum 25-OH vitamin D less than 20 ng/mL (1,2).The Endocrine Society went on to further define vitamin Dinsufficiency as a level between 21 and 29 ng/mL (2).1. IOM (Ins titute of Medicine). 2010 . Dietary reference int akes for calcium and D. [place]: [employer] .2. Ela Oliveros, Stephane EMERSON, et al. Evaluatio n, treatment, and prevention of vitamin D deficiency: an Endocrine Society clinica l practice guideline. EM. 2010; 96(7):191-30.< br/>
[facility]:
[facility] ()

[facility] Description: 25-hydroxyvitamin D3 [Mass/volume] in Serum or [id number] 03:48:00 Test Item Value Reference Range Interpretation Comments Vitamin D, 17.6 ng/mL 30.0-100.0 L Vitamin D defic iency has 25-Hydroxy (test been define d by the code = 67230-1) [place] [facility]ocrine [facility] practice guidel ine as alevel of serum 25-OH vitamin D less than 20 ng/mL (1,2).The Endocrine Society went on to further define vitamin Dinsufficiency as a level between 21 and 29 ng/mL (2).1. IOM (Ins titute of Medicine). 2010 . Dietary reference int akes for calcium and D. [place]: [employer] .2. Ela Oliveros, Stephane EMERSON, et al. Evaluatio n, treatment, and prevention of vitamin D deficiency: an Endocrine Society clinica l practice guideline. EM. 2010; 96(7):1911-30.< br/>
P erformed by:
[facility] ([place])

[facility] Description: 25-hydroxyvitamin D3 [Mass/volume] in Serum or [id number] 03:48:00 Test Item Value Reference Range Interpretation Comments Vitamin D, 17.6 ng/mL 30.0-100.0 L Vitamin D defic iency has 25-Hydroxy (test been define d by the code = 17484-6) [place] [facility]ocrine [facility] practice guidel ine as alevel of serum 25-OH vitamin D less than 20 ng/mL (1,2).The Endocrine Society went on to further define vitamin Dinsufficiency as a level between 21 and 29 ng/mL (2).1. IOM (Ins titute of Medicine). 2010 . Dietary reference int akes for calcium and D. [place]: [employer] .2. Ela Oliveros, Stephane EMERSON, et al. Evaluatio n, treatment, and prevention of vitamin D deficiency: an Endocrine Society clinica l practice guideline. EM. 2010; 96(7):1911-30.< br/>
P erformed by:
[facility] ([place])

[facility] Description: 25-hydroxyvitamin D3 [Mass/volume] in Serum or [id number] 03:48:00 Test Item Value Reference Range Interpretation Comments Vitamin D, 17.6 ng/mL 30.0-100.0 L Vitamin D defic iency has 25-Hydroxy (test been define d by the code = 39603-6) [place] [facility] Endocrine [facility] practice guidel ine as alevel of serum 25-OH vitamin D less than 20 ng/mL (1,2).The Endocrine Society went on to further define vitamin Dinsufficiency as a level between 21 and 29 ng/mL (2).1. IOM (Ins titute of Medicine). 2010 . Dietary reference int akes for calcium and D. [place]: [employer] .2. Ela Oliveros, Stephane EMERSON, et al. Evaluatio n, treatment, and prevention of vitamin D deficiency: an Endocrine Society clinica l practice guideline. EM. 2010; 96(7):1911-30.< br/>
P erformed by:
[facility] ([place])

[facility] Description: 25-hydroxyvitamin D3 [Mass/volume] in Serum or [id number] 03:48:00 Test Item Value Reference Range Interpretation Comments Vitamin D, 17.6 ng/mL 30.0-100.0 L Vitamin D defic iency has 25-Hydroxy (test been define d by the code = 47377-1) [place] [facility] Endocrine [facility] practice guidel ine as alevel of serum 25-OH vitamin D less than 20 ng/mL (1,2).The Endocrine Society went on to further define vitamin Dinsufficiency as a level between 21 and 29 ng/mL (2).1. IOM (Ins titute of Medicine). 2010 . Dietary reference int akes for calcium and D. [place]: [employer] .2. Dileep MF, Ela SANTA, Stephane blake EMERSON, et al. Evaluatio n, treatment, and prevention of vitamin D deficiency: an Endocrine Society clinica l practice guideline. EM. 2010; 96(7):1911-30.< br/>
P erformed by:
[facility] ([place])

[facility] Description: 25-hydroxyvitamin D3 [Mass/volume] in Serum or [id number] 03:48:00 Test Item Value Reference Range Interpretation Comments Vitamin D, 17.6 ng/mL 30.0-100.0 L Vitamin D defic iency has 25-Hydroxy (test been define d by the code = 02960-1) [place] [facility] Endocrine [facility] practice guidel ine as alevel of serum 25-OH vitamin D less than 20 ng/mL (1,2).The Endocrine Society went on to further define vitamin Dinsufficiency as a level between 21 and 29 ng/mL (2).1. IOM (Ins titute of Medicine). 2010 . Dietary reference int akes for calcium and D. [place]: [employer] .2. Ela Oliveros, Stephane EMERSON, et al. Evaluatio n, treatment, and prevention of vitamin D deficiency: an Endocrine Society clinica l practice guideline. [place] EM. 2010; 96(7):1911-30.< br/>
P erformed by:
[facility] ([place])

[facility] Description: 25-hydroxyvitamin D3 [Mass/volume] in Serum or [id number] 03:48:00 Test Item Value Reference Range Interpretation Comments Vitamin D, 17.6 ng/mL 30.0-100.0 L Vitamin D defic iency has 25-Hydroxy (test been define d by the code = 01798-8) [place] [facility] Endocrine [facility] practice guidel ine as alevel of serum 25-OH vitamin D less than 20 ng/mL (1,2).The Endocrine Society went on to further define vitamin Dinsufficiency as a level between 21 and 29 ng/mL (2).1. IOM (Ins titute of Medicine). 2010 . Dietary reference int akes for calcium and D. [place]: [employer] .2. Dileep AREVALO, Ela SANTA, Stephane EMERSON, et al. Evaluatio n, treatment, and prevention of vitamin D deficiency: an Endocrine Society clinica l practice guideline. EM. 2010; 96(7):1911-30.< br/>
P erformed by:
[facility] ([place])

[facility] Description: Erythrocyte sedimentation rate by Westergren [id number] 03:06:00 Test Item Value Reference Range Interpretation Comments Sedimentation Rate-Westergren (test 27 mm/hr 0-15 H code = 4537-7) [facility] Description: Erythrocyte sedimentation rate by Westergren [id number] 03:06:00 Test Item Value Reference Range Interpretation Comments Sedimentation Rate-Westergren (test 27 mm/hr 0-15 H code = 4537-7) [facility] Description: Erythrocyte sedimentation rate by Westergren [id number] 03:06:00 Test Item Value Reference Range Interpretation Comments Sedimentation Rate-Westergren (test 27 mm/hr 0-15 H code = 4537-7) [facility] Description: Erythrocyte sedimentation rate by Westergren [id number] 03:06:00 Test Item Value Reference Range Interpretation Comments Sedimentation Rate-Westergren (test 27 mm/hr 0-15 H code = 4537-7) [facility] Description: Erythrocyte sedimentation rate by Westergren [id number] 03:06:00 Test Item Value Reference Range Interpretation Comments Sedimentation Rate-Westergren (test 27 mm/hr 0-15 H code = 4537-7) [facility] Description: Erythrocyte sedimentation rate by Westergren [id number] 03:06:00 Test Item Value Reference Range Interpretation Comments Sedimentation Rate-Westergren (test 27 mm/hr 0-15 H code = 4537-7) [facility] Description: Erythrocyte sedimentation rate by Westergren [id number] 03:06:00 Test Item Value Reference Range Interpretation Comments Sedimentation Rate-Westergren (test 27 mm/hr 0-15 H code = 4537-7) [facility] Description: Erythrocyte sedimentation rate by Westergren [id number] 03:06:00 Test Item Value Reference Range Interpretation Comments Sedimentation Rate-Westergren (test 27 mm/hr 0-15 H code = 4537-7) [facility] Description: Erythrocyte sedimentation rate by Westergren [id number] 03:06:00 Test Item Value Reference Range Interpretation Comments Sedimentation Rate-Westergren (test 27 mm/hr 0-15 H code = 4537-7) [facility] Description: Erythrocyte sedimentation rate by Westergren [id number] 03:06:00 Test Item Value Reference Range Interpretation Comments Sedimentation Rate-Westergren (test 27 mm/hr 0-15 H code = 4537-7) [facility] Description: Erythrocyte sedimentation rate by Westergren [id number] 03:06:00 Test Item Value Reference Range Interpretation Comments Sedimentation Rate-Westergren (test 27 mm/hr 0-15 H code = 4537-7) [facility] Description: Erythrocyte sedimentation rate by Westergren [id number] 03:06:00 Test Item Value Reference Range Interpretation Comments Sedimentation Rate-Westergren (test 27 mm/hr 0-15 H code = 4537-7) [facility] Description: Comp. Metabolic Panel (14)2021-01-30 02:57:00 Test Item Value Reference Range Interpretation Comments Glucose (test code 256 mg/dL 65-99 H = 2345-7) BUN (test code = 57 mg/dL 6-24 H 3094-0) Creatinine (test 2.38 mg/dL 0.76-1.27 H code = 2160-0) eGFR If NonAfricn 31 >59 L Am (test code = mL/min/1.73 26521-6) eGFR If Africn Am 36 >59 L In accor dance with (test code = mL/min/1.73 recommendations from 85643-5) the NKF-ASN Tas k force, [facility] is in the process of updating its eG FR calculation to the 2020 CKD-EPI creatinine equa tion that estimates kidney function witho ut a race variable.
< br/>Per formed by:
[facility] ([place])

BUN/Creatinine 24 9-20 H Ratio (test code = 3097-3) Sodium (test code = 139 mmol/L 177-226 8991-2) Potassium (test 4.9 mmol/L 3.5-5.2 code = 2823-3) Chloride (test code 100 mmol/L 96-106 = 2075-0) Carbon Dioxide, 23 mmol/L 20-29 Total (test code = 2027-) Calcium (test code 9.0 mg/dL 8.7-10.2 = 39914-8) Protein, Total 6.5 g/dL 6.0-8.5 (test code = 2885-2) Albumin (test code 3.4 g/dL 4.0-5.0 L = 1751-7) Globulin, Total 3.1 g/dL 1.5-4.5 (test code = 90894-0) A/G Ratio (test 1.1 1.2-2.2 L code = 1759-0) Bilirubin, Total 0.4 mg/dL 0.0-1.2 (test code = 1974-2) Alkaline 124 IU/L 44-121 H Phosphatase (test Pl ease note code = 6768-6) reference int erval change
<b r/>Perf ormed by:
[facility] ([place])

AST (SGOT) (test 17 IU/L 0-40 code = 1920-8) ALT (SGPT) (test 23 IU/L 0-44 code = 1742-6) [facility] Description: Phosphate [Mass/volume] in Serum or Plasma 2021-01-30 02:57:00 Test Item Value Reference Range Interpretation Comments Phosphorus (test code = 2777-1) 4.5 mg/dL 2.8-4.1 H [facility] Description: Magnesium [Mass/volume] in Serum or Plasma 2021-01-30 02:57:00 Test Item Value Reference Range Interpretation Comments Magnesium (test code = 71867-7) 1.8 mg/dL 1.6-2.3 [facility] Description: Microscopic [id number] 02:57:00 Test Item Value Reference Range Interpretation Comments WBC (test code = 5821-4) None seen 0-5 RBC (test code = 32153-2) None seen 0-2 Epithelial Cells (non renal) (test None seen 0-10 code = 5787-7) Epithelial Cells (renal) (test code = 37263-2) Casts (test code = 27365-7) None seen None seen Cast Type (test code = 44797-9) Crystals (test code = 5783-6) Crystal Type (test code = 5782-8) Mucus Threads (test code = 8247-9) Bacteria (test code = 5769-5) None seen None seen/Few Yeast (test code = 5822-2) Trichomonas (test code = 5813-1) Comment (test code = 98979-7) [facility] Description: Urate [Mass/volume] in Serum or [id number] 02:57:00 Test Item Value Reference Range Interpretation [...] >59 L Am (test code = mL/min/1.73 24047-5) eGFR If Africn Am 36 >59 L In accor dance with (test code = mL/min/1.73 recommendations from 03728-5) the NKF-ASN Tas k force, [facility] is in the process of updating its eG FR calculation to the 2020 CKD-EPI creatinine equa tion that estimates kidney function witho ut a race variable.
< br/>Per formed by:
[facility] ([place])

BUN/Creatinine 24 9-20 H Ratio (test code = 3097-3) Sodium (test code = 139 mmol/L 784-128 4595-2) Potassium (test 4.9 mmol/L 3.5-5.2 code = 2823-3) Chloride (test code 100 mmol/L 96-106 = 2075-0) Carbon Dioxide, 23 mmol/L 20-29 Total (test code = 2027-) Calcium (test code 9.0 mg/dL 8.7-10.2 = 82266-2) Protein, Total 6.5 g/dL 6.0-8.5 (test code = 2885-2) Albumin (test code 3.4 g/dL 4.0-5.0 L = 1751-7) Globulin, Total 3.1 g/dL 1.5-4.5 (test code = 23404-5) A/G Ratio (test 1.1 1.2-2.2 L code = 1759-0) Bilirubin, Total 0.4 mg/dL 0.0-1.2 (test code = 1974-2) Alkaline 124 IU/L 44-121 H Phosphatase (test Pl ease note code = 6768-6) reference int erval change
<b r/>Perf ormed by:
[facility] ([place])

AST (SGOT) (test 17 IU/L 0-40 code = 1920-8) ALT (SGPT) (test 23 IU/L 0-44 code = 1742-6) [facility] Description: Phosphate [Mass/volume] in Serum or Plasma 2021-01-30 02:57:00 Test Item Value Reference Range Interpretation Comments Phosphorus (test code = 2777-1) 4.5 mg/dL 2.8-4.1 H [facility] Description: Magnesium [Mass/volume] in Serum or Plasma 2021-01-30 02:57:00 Test Item Value Reference Range Interpretation Comments Magnesium (test code = 03790-6) 1.8 mg/dL 1.6-2.3 [facility] Description: Microscopic [id number] 02:57:00 Test Item Value Reference Range Interpretation Comments WBC (test code = 5821-4) None seen 0-5 RBC (test code = 58194-7) None seen 0-2 Epithelial Cells (non renal) (test None seen 0-10 code = 5787-7) Epithelial Cells (renal) (test code = 07322-2) Casts (test code = 03240-2) None seen None seen Cast Type (test code = 41384-0) Crystals (test code = 5783-6) Crystal Type (test code = 5782-8) Mucus Threads (test code = 8247-9) Bacteria (test code = 5769-5) None seen None seen/Few Yeast (test code = 5822-2) Trichomonas (test code = 5813-1) Comment (test code = 22186-4) [facility] Description: Urate [Mass/volume] in Serum or [id number] 02:57:00 Test Item Value Reference Range Interpretation Comments Uric Acid (test 11.5 mg/dL 3.8-8.4 H code = 3084-1) Therapeutic t arget for gout patients: <6.0

P erformed by:
[facility] ([place])

[facility] [facility] Description: Comp. Metabolic Panel (14)2021-01-30 02:57:00 Test Item Value Reference Range Interpretation Comments Glucose (test code 256 mg/dL 65-99 H = 2345-7) BUN (test code = 57 mg/dL 6-24 H 3094-0) Creatinine (test 2.38 mg/dL 0.76-1.27 H code = 2160-0) eGFR If NonAfricn 31 >59 L Am (test code = mL/min/1.73 61786-7) eGFR If Africn Am 36 >59 L In accor dance with (test code = mL/min/1.73 recommendations from 93035-2) the NKF-ASN Tas k force, [facility] is in the process of updating its eG FR calculation to the 2020 CKD-EPI creatinine equa tion that estimates kidney function witho ut a race variable.
< br/>Per formed by:
[facility]aur (HD)

BUN/Creatinine 24 9-20 H Ratio (test code = 3097-3) Sodium (test code = 139 mmol/L 795-120 2896-2) Potassium (test 4.9 mmol/L 3.5-5.2 code = 2823-3) Chloride (test code 100 mmol/L 96-106 = 2075-0) Carbon Dioxide, 23 mmol/L 20-29 Total (test code = 2027-) Calcium (test code 9.0 mg/dL 8.7-10.2 = 19071-8) Protein, Total 6.5 g/dL 6.0-8.5 (test code = 2885-2) Albumin (test code 3.4 g/dL 4.0-5.0 L = 1751-7) Globulin, Total 3.1 g/dL 1.5-4.5 (test code = 89675-1) A/G Ratio (test 1.1 1.2-2.2 L code = 1759-0) Bilirubin, Total 0.4 mg/dL 0.0-1.2 (test code = 1974-2) Alkaline 124 IU/L 44-121 H Phosphatase (test Pl ease note code = 6768-6) reference int erval change
<b r/>Perf ormed by:
L Natividad Kaur (HD)

AST (SGOT) (test 17 IU/L 0-40 code = 1920-8) ALT (SGPT) (test 23 IU/L 0-44 code = 1742-6) [facility] Description: Phosphate [Mass/volume] in Serum or Plasma 2021-01-30 02:57:00 Test Item Value Reference Range Interpretation Comments Phosphorus (test code = 2777-1) 4.5 mg/dL 2.8-4.1 H [facility] Description: Magnesium [Mass/volume] in Serum or Plasma 2021-01-30 02:57:00 Test Item Value Reference Range Interpretation Comments Magnesium (test code = 60247-5) 1.8 mg/dL 1.6-2.3 [facility] Description: Microscopic Khthvkztiet7560-61-05 02:57:00 Test Item Value Reference Range Interpretation Comments WBC (test code = 5821-4) None seen 0-5 RBC (test code = 25283-1) None seen 0-2 Epithelial Cells (non renal) (test None seen 0-10 code = 5787-7) Epithelial Cells (renal) (test code = 54911-0) Casts (test code = 41421-8) None seen None seen Cast Type (test code = 95168-5) Crystals (test code = 5783-6) Crystal Type (test code = 5782-8) Mucus Threads (test code = 8247-9) Bacteria (test code = 5769-5) None seen None seen/Few Yeast (test code = 5822-2) Trichomonas (test code = 5813-1) Comment (test code = 46265-6) [facility] Description: Urate [Mass/volume] in Serum or Cmhebo0746-24-27 02:57:00 Test Item Value Reference Range Interpretation Comments Uric Acid (test 11.5 mg/dL 3.8-8.4 H code = 3084-1) Therapeutic t arget for gout patients: <6.0

P erformed by:
[facility] (HD)

[facility] Description: Comp. Metabolic Panel (14)2021-01-30 02:57:00 Test Item Value Reference Range Interpretation Comments Glucose (test code 256 mg/dL 65-99 H = 2345-7) BUN (test code = 57 mg/dL 6-24 H 3094-0) Creatinine (test 2.38 mg/dL 0.76-1.27 H code = 2160-0) eGFR If NonAfricn 31 >59 L Am (test code = mL/min/1.73 52594-5) eGFR If Africn Am 36 >59 L In accor dance with (test code = mL/min/1.73 recommendations from 95841-5) the NKF-ASN Tas k force, [facility] is in the process of updating its eG FR calculation to the 2020 CKD-EPI creatinine equa tion that estimates kidney function witho ut a race variable.
< br/>Per formed by:
[facility] (HD)

BUN/Creatinine 24 9-20 H Ratio (test code = 3097-3) Sodium (test code = 139 mmol/L 822-778 5590-2) Potassium (test 4.9 mmol/L 3.5-5.2 code = 2823-3) Chloride (test code 100 mmol/L 96-106 = 2075-0) Carbon Dioxide, 23 mmol/L 20-29 Total (test code = 2027-) Calcium (test code 9.0 mg/dL 8.7-10.2 = 31334-3) Protein, Total 6.5 g/dL 6.0-8.5 (test code = 2885-2) Albumin (test code 3.4 g/dL 4.0-5.0 L = 1751-7) Globulin, Total 3.1 g/dL 1.5-4.5 (test code = 51111-4) A/G Ratio (test 1.1 1.2-2.2 L code = 1759-0) Bilirubin, Total 0.4 mg/dL 0.0-1.2 (test code = 1975-2) Alkaline 124 IU/L 44-121 H Phosphatase (test Pl ease note code = 6768-6) reference int erval change
<b r/>Perf ormed by:
[facility] ([place])

AST (SGOT) (test 17 IU/L 0-40 code = 1920-8) ALT (SGPT) (test 23 IU/L 0-44 code = 1742-6) [facility] Description: Phosphate [Mass/volume] in Serum or Plasma 2021-01-30 02:57:00 Test Item Value Reference Range Interpretation Comments Phosphorus (test code = 2777-1) 4.5 mg/dL 2.8-4.1 H [facility] Description: Magnesium [Mass/volume] in Serum or Plasma 2021-01-30 02:57:00 Test Item Value Reference Range Interpretation Comments Magnesium (test code = 00692-8) 1.8 mg/dL 1.6-2.3 [facility] Description: Microscopic Ioqkypoivog4946-04-88 02:57:00 Test Item Value Reference Range Interpretation Comments WBC (test code = 5821-4) None seen 0-5 RBC (test code = 76559-0) None seen 0-2 Epithelial Cells (non renal) (test None seen 0-10 code = 5787-7) Epithelial Cells (renal) (test code = 35100-6) Casts (test code = 90171-5) None seen None seen Cast Type (test code = 91799-1) Crystals (test code = 5783-6) Crystal Type (test code = 5782-8) Mucus Threads (test code = 8247-9) Bacteria (test code = 5769-5) None seen None seen/Few Yeast (test code = 5822-2) Trichomonas (test code = 5813-1) Comment (test code = 55008-6) [facility] Description: Urate [Mass/volume] in Serum or Rmzeuv9444-39-45 02:57:00 Test Item Value Reference Range Interpretation Comments Uric Acid (test 11.5 mg/dL 3.8-8.4 H code = 3084-1) Therapeutic t arget for gout patients: <6.0

P erformed by:
[facility] (HD)

[facility] Description: Comp. Metabolic Panel (14)2021-01-30 02:57:00 Test Item Value Reference Range Interpretation Comments Glucose (test code 256 mg/dL 65-99 H = 2345-7) BUN (test code = 57 mg/dL 6-24 H 3094-0) Creatinine (test 2.38 mg/dL 0.76-1.27 H code = 2160-0) eGFR If NonAfricn 31 >59 L Am (test code = mL/min/1.73 89627-8) eGFR If Africn Am 36 >59 L In accor dance with (test code = mL/min/1.73 recommendations from 28757-5) the NKF-ASN Tas k force, [facility] is in the process of updating its eG FR calculation to the 2020 CKD-EPI creatinine equa tion that estimates kidney function witho ut a race variable.
< br/>Per formed by:
[facility] (HD)

BUN/Creatinine 24 9-20 H Ratio (test code = 3097-3) Sodium (test code = 139 mmol/L 966-440 9819-2) Potassium (test 4.9 mmol/L 3.5-5.2 code = 2823-3) Chloride (test code 100 mmol/L 96-106 = 2075-0) Carbon Dioxide, 23 mmol/L 20-29 Total (test code = 2027-) Calcium (test code 9.0 mg/dL 8.7-10.2 = 53886-2) Protein, Total 6.5 g/dL 6.0-8.5 (test code = 2885-2) Albumin (test code 3.4 g/dL 4.0-5.0 L = 1751-7) Globulin, Total 3.1 g/dL 1.5-4.5 (test code = 84061-4) A/G Ratio (test 1.1 1.2-2.2 L code [...] Range Interpretation Comments Magnesium (test code = 06701-2) 1.8 mg/dL 1.6-2.3 [facility] Description: Microscopic Rfdjsdremws4375-89-43 02:57:00 Test Item Value Reference Range Interpretation Comments WBC (test code = 5821-4) None seen 0-5 RBC (test code = 21329-2) None seen 0-2 Epithelial Cells (non renal) (test None seen 0-10 code = 5787-7) Epithelial Cells (renal) (test code = 15944-5) Casts (test code = 22748-8) None seen None seen Cast Type (test code = 33990-1) Crystals (test code = 5783-6) Crystal Type (test code = 5782-8) Mucus Threads (test code = 8247-9) Bacteria (test code = 5769-5) None seen None seen/Few Yeast (test code = 5822-2) Trichomonas (test code = 5813-1) Comment (test code = 44800-7) [facility] Description: Urate [Mass/volume] in Serum or Ryljzs3590-50-61 02:57:00 Test Item Value Reference Range Interpretation [...] >59 L Am (test code = mL/min/1.73 88925-7) eGFR If Africn Am 36 >59 L In accor dance with (test code = mL/min/1.73 recommendations from 25847-6) the NKF-ASN Tas k force, [facility] is in the process of updating its eG FR calculation to the 2020 CKD-EPI creatinine equa tion that estimates kidney function witho ut a race variable.
< br/>Per formed by:
[facility] (HD)

BUN/Creatinine 24 9-20 H Ratio (test code = 3097-3) Sodium (test code = 139 mmol/L 515-723 8191-2) Potassium (test 4.9 mmol/L 3.5-5.2 code = 2823-3) Chloride (test code 100 mmol/L 96-106 = 2075-0) Carbon Dioxide, 23 mmol/L 20-29 Total (test code = 2027-) Calcium (test code 9.0 mg/dL 8.7-10.2 = 87039-4) Protein, Total 6.5 g/dL 6.0-8.5 (test code = 2885-2) Albumin (test code 3.4 g/dL 4.0-5.0 L = 1751-7) Globulin, Total 3.1 g/dL 1.5-4.5 (test code = 84823-1) A/G Ratio (test 1.1 1.2-2.2 L code = 1759-0) Bilirubin, Total 0.4 mg/dL 0.0-1.2 (test code = 1975-2) Alkaline 124 IU/L 44-121 H Phosphatase (test Pl ease note code = 6768-6) reference int erval change
<b r/>Perf ormed by:
[facility] ([place])

AST (SGOT) (test 17 IU/L 0-40 code = 1920-8) ALT (SGPT) (test 23 IU/L 0-44 code = 1742-6) [facility] Description: Phosphate [Mass/volume] in Serum or Plasma 2021-01-30 02:57:00 Test Item Value Reference Range Interpretation Comments Phosphorus (test code = 2777-1) 4.5 mg/dL 2.8-4.1 H [facility] Description: Magnesium [Mass/volume] in Serum or Plasma 2021-01-30 02:57:00 Test Item Value Reference Range Interpretation Comments Magnesium (test code = 29610-4) 1.8 mg/dL 1.6-2.3 [facility] Description: Microscopic Kprvtavfemy0495-46-06 02:57:00 Test Item Value Reference Range Interpretation Comments WBC (test code = 5821-4) None seen 0-5 RBC (test code = 02266-9) None seen 0-2 Epithelial Cells (non renal) (test None seen 0-10 code = 5787-7) Epithelial Cells (renal) (test code = 60333-0) Casts (test code = 38825-7) None seen None seen Cast Type (test code = 83346-2) Crystals (test code = 5783-6) Crystal Type (test code = 5782-8) Mucus Threads (test code = 8247-9) Bacteria (test code = 5769-5) None seen None seen/Few Yeast (test code = 5822-2) Trichomonas (test code = 5813-1) Comment (test code = 87583-3) [facility] Description: Urate [Mass/volume] in Serum or Qsvzsv0980-23-63 02:57:00 Test Item Value Reference Range Interpretation Comments Uric Acid (test 11.5 mg/dL 3.8-8.4 H code = 3084-1) Therapeutic t arget for gout patients: <6.0

P erformed by:
[facility] (HD)

[facility] Description: Comp. Metabolic Panel (14)2021-01-30 02:57:00 Test Item Value Reference Range Interpretation Comments Glucose (test code 256 mg/dL 65-99 H = 2345-7) BUN (test code = 57 mg/dL 6-24 H 3094-0) Creatinine (test 2.38 mg/dL 0.76-1.27 H code = 2160-0) eGFR If NonAfricn 31 >59 L Am (test code = mL/min/1.73 40248-0) eGFR If Africn Am 36 >59 L In accor dance with (test code = mL/min/1.73 recommendations from 89608-5) the NKF-ASN Tas k force, [facility] is in the process of updating its eG FR calculation to the 2020 CKD-EPI creatinine equa tion that estimates kidney function witho ut a race variable.
< br/>Per formed by:
[facility] (HD)

BUN/Creatinine 24 9-20 H Ratio (test code = 3097-3) Sodium (test code = 139 mmol/L 493-285 6432-2) Potassium (test 4.9 mmol/L 3.5-5.2 code = 2823-3) Chloride (test code 100 mmol/L 96-106 = 2075-0) Carbon Dioxide, 23 mmol/L 20-29 Total (test code = 2027-) Calcium (test code 9.0 mg/dL 8.7-10.2 = 01845-9) Protein, Total 6.5 g/dL 6.0-8.5 (test code = 2885-2) Albumin (test code 3.4 g/dL 4.0-5.0 L = 1751-7) Globulin, Total 3.1 g/dL 1.5-4.5 (test code = 21149-5) A/G Ratio (test 1.1 1.2-2.2 L code [...] Range Interpretation Comments Magnesium (test code = 58705-4) 1.8 mg/dL 1.6-2.3 [facility] Description: Microscopic Loeoaejiaye1904-19-60 02:57:00 Test Item Value Reference Range Interpretation Comments WBC (test code = 5821-4) None seen 0-5 RBC (test code = 32383-6) None seen 0-2 Epithelial Cells (non renal) (test None seen 0-10 code = 5787-7) Epithelial Cells (renal) (test code = 44013-8) Casts (test code = 07184-3) None seen None seen Cast Type (test code = 63217-2) Crystals (test code = 5783-6) Crystal Type (test code = 5782-8) Mucus Threads (test code = 8247-9) Bacteria (test code = 5769-5) None seen None seen/Few Yeast (test code = 5822-2) Trichomonas (test code = 5813-1) Comment (test code = 72512-0) [facility] Description: Urate [Mass/volume] in Serum or Mntlvn6944-71-61 02:57:00 Test Item Value Reference Range Interpretation [...] >59 L Am (test code = mL/min/1.73 55360-7) eGFR If Africn Am 36 >59 L In accor dance with (test code = mL/min/1.73 recommendations from 95178-3) the NKF-ASN Tas k force, [facility] is in the process of updating its eG FR calculation to the 2020 CKD-EPI creatinine equa tion that estimates kidney function witho ut a race variable.
< br/>Per formed by:
[facility] (HD)

BUN/Creatinine 24 9-20 H Ratio (test code = 3097-3) Sodium (test code = 139 mmol/L 692-688 2781-2) Potassium (test 4.9 mmol/L 3.5-5.2 code = 2823-3) Chloride (test code 100 mmol/L 96-106 = 2075-0) Carbon Dioxide, 23 mmol/L 20-29 Total (test code = 2027-) Calcium (test code 9.0 mg/dL 8.7-10.2 = 14177-5) Protein, Total 6.5 g/dL 6.0-8.5 (test code = 2885-2) Albumin (test code 3.4 g/dL 4.0-5.0 L = 1751-7) Globulin, Total 3.1 g/dL 1.5-4.5 (test code = 43331-3) A/G Ratio (test 1.1 1.2-2.2 L code = 1759-0) Bilirubin, Total 0.4 mg/dL 0.0-1.2 (test code = 1975-2) Alkaline 124 IU/L 44-121 H Phosphatase (test Pl ease note code = 6768-6) reference int erval change
<b r/>Perf ormed by:
[facility] ([place])

AST (SGOT) (test 17 IU/L 0-40 code = 1920-8) ALT (SGPT) (test 23 IU/L 0-44 code = 1742-6) [facility] Description: Phosphate [Mass/volume] in Serum or Plasma 2021-01-30 02:57:00 Test Item Value Reference Range Interpretation Comments Phosphorus (test code = 2777-1) 4.5 mg/dL 2.8-4.1 H [facility] Description: Magnesium [Mass/volume] in Serum or Plasma 2021-01-30 02:57:00 Test Item Value Reference Range Interpretation Comments Magnesium (test code = 47207-3) 1.8 mg/dL 1.6-2.3 [facility] Description: Microscopic Peqdzvipthz1199-78-49 02:57:00 Test Item Value Reference Range Interpretation Comments WBC (test code = 5821-4) None seen 0-5 RBC (test code = 06092-2) None seen 0-2 Epithelial Cells (non renal) (test None seen 0-10 code = 5787-7) Epithelial Cells (renal) (test code = 35826-5) Casts (test code = 83530-6) None seen None seen Cast Type (test code = 41208-8) Crystals (test code = 5783-6) Crystal Type (test code = 5782-8) Mucus Threads (test code = 8247-9) Bacteria (test code = 5769-5) None seen None seen/Few Yeast (test code = 5822-2) Trichomonas (test code = 5813-1) Comment (test code = 34419-6) [facility] Description: Urate [Mass/volume] in Serum or Excikz9709-80-57 02:57:00 Test Item Value Reference Range Interpretation [...] >59 L Am (test code = mL/min/1.73 00962-2) eGFR If Africn Am 36 >59 L In accor dance with (test code = mL/min/1.73 recommendations from 81759-1) the NKF-ASN Tas k force, [facility] is in the process of updating its eG FR calculation to the 2020 CKD-EPI creatinine equa tion that estimates kidney function witho ut a race variable.
< br/>Per formed by:
[facility] (HD)

BUN/Creatinine 24 9-20 H Ratio (test code = 3097-3) Sodium (test code = 139 mmol/L 901-762 2530-2) Potassium (test 4.9 mmol/L 3.5-5.2 code = 2823-3) Chloride (test code 100 mmol/L 96-106 = 2075-0) Carbon Dioxide, 23 mmol/L 20-29 Total (test code = 2027-9) Calcium (test code 9.0 mg/dL 8.7-10.2 = 34848-7) Protein, Total 6.5 g/dL 6.0-8.5 (test code = 2885-2) Albumin (test code 3.4 g/dL 4.0-5.0 L = 1751-7) Globulin, Total 3.1 g/dL 1.5-4.5 (test code = 07387-4) A/G Ratio (test 1.1 1.2-2.2 L code = 1759-0) Bilirubin, Total 0.4 mg/dL 0.0-1.2 (test code = 1975-2) Alkaline 124 IU/L 44-121 H Phosphatase (test Pl ease note code = 6768-6) reference int erval change
<b r/>Perf ormed by:
[facility] ([place])

AST (SGOT) (test 17 IU/L 0-40 code = 1920-8) ALT (SGPT) (test 23 IU/L 0-44 code = 1742-6) [facility] Description: Phosphate [Mass/volume] in Serum or Plasma 2021-01-30 02:57:00 Test Item Value Reference Range Interpretation Comments Phosphorus (test code = 2777-1) 4.5 mg/dL 2.8-4.1 H [facility] Description: Magnesium [Mass/volume] in Serum or Plasma 2021-01-30 02:57:00 Test Item Value Reference Range Interpretation Comments Magnesium (test code = 01402-6) 1.8 mg/dL 1.6-2.3 [facility] Description: Microscopic Hbzheozmoid0914-27-94 02:57:00 Test Item Value Reference Range Interpretation Comments WBC (test code = 5821-4) None seen 0-5 RBC (test code = 38075-8) None seen 0-2 Epithelial Cells (non renal) (test None seen 0-10 code = 5787-7) Epithelial Cells (renal) (test code = 30354-0) Casts (test code = 52826-5) None seen None seen Cast Type (test code = 22463-8) Crystals (test code = 5783-6) Crystal Type (test code = 5782-8) Mucus Threads (test code = 8247-9) Bacteria (test code = 5769-5) None seen None seen/Few Yeast (test code = 5822-2) Trichomonas (test code = 5813-1) Comment (test code = 10071-0) [facility] Description: Urate [Mass/volume] in Serum or Urqdfz7157-57-48 02:57:00 Test Item Value Reference Range Interpretation Comments Uric Acid (test 11.5 mg/dL 3.8-8.4 H code = 3084-1) Therapeutic t arget for gout patients: <6.0

P erformed by:
[facility] (HD)

[facility] Description: Comp. Metabolic Panel (14)2021-01-30 02:57:00 Test Item Value Reference Range Interpretation Comments Glucose (test code 256 mg/dL 65-99 H = 2345-7) BUN (test code = 57 mg/dL 6-24 H 3094-0) Creatinine (test 2.38 mg/dL 0.76-1.27 H code = 2160-0) eGFR If NonAfricn 31 >59 L Am (test code = mL/min/1.73 80769-1) eGFR If Africn Am 36 >59 L In accor dance with (test code = mL/min/1.73 recommendations from 16813-1) the NKF-ASN Tas k force, [facility] is in the process of updating its eG FR calculation to the 2020 CKD-EPI creatinine equa tion that estimates kidney function witho ut a race variable.
< br/>Per formed by:
[facility] (HD)

BUN/Creatinine 24 9-20 H Ratio (test code = 3097-3) Sodium (test code = 139 mmol/L 586-434 9479-2) Potassium (test 4.9 mmol/L 3.5-5.2 code = 2823-3) Chloride (test code 100 mmol/L 96-106 = 2075-0) Carbon Dioxide, 23 mmol/L 20-29 Total (test code = 2027-) Calcium (test code 9.0 mg/dL 8.7-10.2 = 85174-6) Protein, Total 6.5 g/dL 6.0-8.5 (test code = 2885-2) Albumin (test code 3.4 g/dL 4.0-5.0 L = 1751-7) Globulin, Total 3.1 g/dL 1.5-4.5 (test code = 83196-5) A/G Ratio (test 1.1 1.2-2.2 L code = 1759-0) Bilirubin, Total 0.4 mg/dL 0.0-1.2 (test code = 1975-2) Alkaline 124 IU/L 44-121 H Phosphatase (test Pl ease note code = 6768-6) reference int erval change
<b r/>Perf ormed by:
[facility] ([place])

AST (SGOT) (test 17 IU/L 0-40 code = 1920-8) ALT (SGPT) (test 23 IU/L 0-44 code = 1742-6) [facility] Description: Phosphate [Mass/volume] in Serum or Plasma 2021-01-30 02:57:00 Test Item Value Reference Range Interpretation Comments Phosphorus (test code = 2777-1) 4.5 mg/dL 2.8-4.1 H [facility] Description: Magnesium [Mass/volume] in Serum or Plasma 2021-01-30 02:57:00 Test Item Value Reference Range Interpretation Comments Magnesium (test code = 41765-2) 1.8 mg/dL 1.6-2.3 [facility] Description: Microscopic Clcblzmgzsf8416-72-54 02:57:00 Test Item Value Reference Range Interpretation Comments WBC (test code = 5821-4) None seen 0-5 RBC (test code = 06268-3) None seen 0-2 Epithelial Cells (non renal) (test None seen 0-10 code = 5787-7) Epithelial Cells (renal) (test code = 68188-4) Casts (test code = 09780-2) None seen None seen Cast Type (test code = 43326-2) Crystals (test code = 5783-6) Crystal Type (test code = 5782-8) Mucus Threads (test code = 8247-9) Bacteria (test code = 5769-5) None seen None seen/Few Yeast (test code = 5822-2) Trichomonas (test code = 5813-1) Comment (test code = 40180-0) [facility] Description: Urate [Mass/volume] in Serum or Gadexz1245-58-66 02:57:00 Test Item Value Reference Range Interpretation Comments Uric Acid (test 11.5 mg/dL 3.8-8.4 H code = 3084-1) Therapeutic t arget for gout patients: <6.0

P erformed by:
[facility] (HD)

[facility] Description: Comp. Metabolic Panel (14)2021-01-30 02:57:00 Test Item Value Reference Range Interpretation Comments Glucose (test code 256 mg/dL 65-99 H = 2345-7) BUN (test code = 57 mg/dL 6-24 H 3094-0) Creatinine (test 2.38 mg/dL 0.76-1.27 H code = 2160-0) eGFR If NonAfricn 31 >59 L Am (test code = mL/min/1.73 75125-2) eGFR If Africn Am 36 >59 L In accor dance with (test code = mL/min/1.73 recommendations from 51314-7) the NKF-ASN Tas k force, [facility] is in the process of updating its eG FR calculation to the 2020 CKD-EPI creatinine equa tion that estimates kidney function witho ut a race variable.
< br/>Per formed by:
[facility] (HD)

BUN/Creatinine 24 9-20 H Ratio (test code = 3097-3) Sodium (test code = 139 mmol/L 706-200 8035-2) Potassium (test 4.9 mmol/L 3.5-5.2 code = 2823-3) Chloride (test code 100 mmol/L 96-106 = 2075-0) Carbon Dioxide, 23 mmol/L 20-29 Total (test code = 2027-) Calcium (test code 9.0 mg/dL 8.7-10.2 = 70836-7) Protein, Total 6.5 g/dL 6.0-8.5 (test code = 2885-2) Albumin (test code 3.4 g/dL 4.0-5.0 L = 1751-7) Globulin, Total 3.1 g/dL 1.5-4.5 (test code = 40862-5) A/G Ratio (test 1.1 1.2-2.2 L code = 1759-0) Bilirubin, Total 0.4 mg/dL 0.0-1.2 (test code = 1975-2) Alkaline 124 IU/L 44-121 H Phosphatase (test Pl ease note code = 6768-6) reference int erval change
<b r/>Perf ormed by:
[facility] ([place])

AST (SGOT) (test 17 IU/L 0-40 code = 1920-8) ALT (SGPT) (test 23 IU/L 0-44 code = 1742-6) [facility] Description: Phosphate [Mass/volume] in Serum or Plasma 2021-01-30 02:57:00 Test Item Value Reference Range Interpretation Comments Phosphorus (test code = 2777-1) 4.5 mg/dL 2.8-4.1 H [facility] Description: Magnesium [Mass/volume] in Serum or Plasma 2021-01-30 02:57:00 Test Item Value Reference Range Interpretation Comments Magnesium (test code = 27902-5) 1.8 mg/dL 1.6-2.3 [facility] Description: Microscopic Tflnepctitu6943-84-56 02:57:00 Test Item Value Reference Range Interpretation Comments WBC (test code = 5821-4) None seen 0-5 RBC (test code = 52752-4) None seen 0-2 Epithelial Cells (non renal) (test None seen 0-10 code = 5787-7) Epithelial Cells (renal) (test code = 80712-9) Casts (test code = 32106-1) None seen None seen Cast Type (test code = 37710-6) Crystals (test code = 5783-6) Crystal Type (test code = 5782-8) Mucus Threads (test code = 8247-9) Bacteria (test code = 5769-5) None seen None seen/Few Yeast (test code = 5822-2) Trichomonas (test code = 5813-1) Comment (test code = 03496-9) [facility] Description: Urate [Mass/volume] in Serum or [id number] 02:57:00 Test Item Value Reference Range Interpretation Comments Uric Acid (test 11.5 mg/dL 3.8-8.4 H code = 3084-1) Therapeutic t arget for gout patients: <6.0

P erformed by:
[facility] ([place])

[facility] Description: Comp. Metabolic Panel (14)2021-01-30 02:57:00 Test Item Value Reference Range Interpretation Comments Glucose (test code 256 mg/dL 65-99 H = 2345-7) BUN (test code = 57 mg/dL 6-24 H 3094-0) Creatinine (test 2.38 mg/dL 0.76-1.27 H code = 2160-0) eGFR If NonAfricn 31 >59 L Am (test code = mL/min/1.73 32188-3) eGFR If Africn Am 36 >59 L In accor dance with (test code = mL/min/1.73 recommendations from 10909-2) the NKF-ASN Tas k force, [facility] is in the process of updating its eG FR calculation to the 2020 CKD-EPI creatinine equa tion that estimates kidney function witho ut a race variable.
< br/>Per formed by:
[facility] Kaur ([place])

BUN/Creatinine 24 9-20 H Ratio (test code = 3097-3) Sodium (test code = 139 mmol/L 348-751 1912-2) Potassium (test 4.9 mmol/L 3.5-5.2 code = 2823-3) Chloride (test code 100 mmol/L 96-106 = 2075-0) Carbon Dioxide, 23 mmol/L 20-29 Total (test code = 2027-) Calcium (test code 9.0 mg/dL 8.7-10.2 = 79671-7) Protein, Total 6.5 g/dL 6.0-8.5 (test code = 2885-2) Albumin (test code 3.4 g/dL 4.0-5.0 L = 1751-7) Globulin, Total 3.1 g/dL 1.5-4.5 (test code = 28069-2) A/G Ratio (test 1.1 1.2-2.2 L code = 1759-0) Bilirubin, Total 0.4 mg/dL 0.0-1.2 (test code = 1975-2) Alkaline 124 IU/L 44-121 H Phosphatase (test Pl ease note code = 6768-6) reference int erval change
<b r/>Perf ormed by:
[facility] ([place])

AST (SGOT) (test 17 IU/L 0-40 code = 1920-8) ALT (SGPT) (test 23 IU/L 0-44 code = 1742-6) [facility] Description: Phosphate [Mass/volume] in Serum or Plasma 2021-01-30 02:57:00 Test Item Value Reference Range Interpretation Comments Phosphorus (test code = 2777-1) 4.5 mg/dL 2.8-4.1 H [facility] Description: Magnesium [Mass/volume] in Serum or Plasma 2021-01-30 02:57:00 Test Item Value Reference Range Interpretation Comments Magnesium (test code = 05095-6) 1.8 mg/dL 1.6-2.3 [facility] Description: Microscopic [id number] 02:57:00 Test Item Value Reference Range Interpretation Comments WBC (test code = 5821-4) None seen 0-5 RBC (test code = 49760-7) None seen 0-2 Epithelial Cells (non renal) (test None seen 0-10 code = 5787-7) Epithelial Cells (renal) (test code = 00132-1) Casts (test code = 89547-0) None seen None seen Cast Type (test code = 53258-3) Crystals (test code = 5783-6) Crystal Type (test code = 5782-8) Mucus Threads (test code = 8247-9) Bacteria (test code = 5769-5) None seen None seen/Few Yeast (test code = 5822-2) Trichomonas (test code = 5813-1) Comment (test code = 49688-0) [facility] Description: Urate [Mass/volume] in Serum or [id number] 02:57:00 Test Item Value Reference Range Interpretation Comments Uric Acid (test 11.5 mg/dL 3.8-8.4 H code = 3084-1) Therapeutic t arget for gout patients: <6.0

P erformed by:
[facility] ([place])

[facility] Description: Urinalysis, [id number] 02:24:00 Test Item Value Reference Range Interpretation Comments Specific Ashley (test 1.017 1.005-1.030 code = 2965-2) pH (test code = 5.5 5.0-7.5 5803-2) Urine-Color (test code Yellow Yellow = 5778-6) Appearance (test code Clear Clear = 5767-9) WBC Esterase (test Negative Negative code = 5799-2) Protein (test code = 4+ Negative/Trace A 20721-8) Glucose (test code = 1+ Negative A 2349-9) Ketones (test code = Negative Negative 2514-8) Occult Blood (test Trace Negative A code = 5794-3) Bilirubin (test code = Negative Negative 5770-3) Urobilinogen,Semi-Qn 0.2 mg/dL 0.2-1.0 (test code = 14142-8) Nitrite, Urine (test Negative Negative code = 5802-4) Microscopic See below: Microscopic was Examination (test code indic ated and was = 12711-3) performed.

P erformed by:
[facility] [place] ()

[facility] Description: Urinalysis, [id number] 02:24:00 Test Item Value Reference Range Interpretation Comments Specific Ashley (test 1.017 1.005-1.030 code = 2965-2) pH (test code = 5.5 5.0-7.5 5803-2) Urine-Color (test code Yellow Yellow = 5778-6) Appearance (test code Clear Clear = 5767-9) WBC Esterase (test Negative Negative code = 5799-2) Protein (test code = 4+ Negative/Trace A 35932-1) Glucose (test code = 1+ Negative A 2349-9) Ketones (test code = Negative Negative 2514-8) Occult Blood (test Trace Negative A code = 5794-3) Bilirubin (test code = Negative Negative 5770-3) Urobilinogen,Semi-Qn 0.2 mg/dL 0.2-1.0 (test code = 64215-9) Nitrite, Urine (test Negative Negative code = 5802-4) Microscopic See below: Microscopic was Examination (test code indic ated and was = 96822-8) performed.

P erformed by:
[facility] [place] ()

[facility] Description: Urinalysis, [id number] 02:24:00 Test Item Value Reference Range Interpretation Comments Specific Ashley (test 1.017 1.005-1.030 code = 2965-2) pH (test code = 5.5 5.0-7.5 5803-2) Urine-Color (test code Yellow Yellow = 5778-6) Appearance (test code Clear Clear = 5767-9) WBC Esterase (test Negative Negative code = 5799-2) Protein (test code = 4+ Negative/Trace A 46883-5) Glucose (test code = 1+ Negative A 2349-9) Ketones (test code = Negative Negative 2514-8) Occult Blood (test Trace Negative A code = 5794-3) Bilirubin (test code = Negative Negative 5770-3) Urobilinogen,Semi-Qn 0.2 mg/dL 0.2-1.0 (test code = 84610-7) Nitrite, Urine (test Negative Negative code = 5802-4) Microscopic See below: Microscopic was Examination (test code indic ated and was = 62953-3) performed.

P erformed by:
[facility] [place] ()

[facility] Description: Urinalysis, [id number] 02:24:00 Test Item Value Reference Range Interpretation Comments Specific Ashley (test 1.017 1.005-1.030 code = 2965-2) pH (test code = 5.5 5.0-7.5 5803-2) Urine-Color (test code Yellow Yellow = 5778-6) Appearance (test code Clear Clear = 5767-9) WBC Esterase (test Negative Negative code = 5799-2) Protein (test code = 4+ Negative/Trace A 74514-7) Glucose (test code = 1+ Negative A 2349-9) Ketones (test code = Negative Negative 2514-8) Occult Blood (test Trace Negative A code = 5794-3) Bilirubin (test code = Negative Negative 5770-3) Urobilinogen,Semi-Qn 0.2 mg/dL 0.2-1.0 (test code = 09381-4) Nitrite, Urine (test Negative Negative code = 5802-4) Microscopic See below: Microscopic was Examination (test code indic ated and was = 16737-2) performed.

P erformed by:
[facility] [place] ()

[facility] Description: Urinalysis, [id number] 02:24:00 Test Item Value Reference Range Interpretation Comments Specific Ashley (test 1.017 1.005-1.030 code = 2965-2) pH (test code = 5.5 5.0-7.5 5803-2) Urine-Color (test code Yellow Yellow = 5778-6) Appearance (test code Clear Clear = 5767-9) WBC Esterase (test Negative Negative code = 5799-2) Protein (test code = 4+ Negative/Trace A 91412-0) Glucose (test code = 1+ Negative A 2349-9) Ketones (test code = Negative Negative 2514-8) Occult Blood (test Trace Negative A code = 5794-3) Bilirubin (test code = Negative Negative 5770-3) Urobilinogen,Semi-Qn 0.2 mg/dL 0.2-1.0 (test code = 39749-1) Nitrite, Urine (test Negative Negative code = 5802-4) Microscopic See below: Microscopic was Examination (test code indic ated and was = 92607-1) performed.

P erformed by:
[facility] [place] ()

[facility] Description: Urinalysis, [id number] 02:24:00 Test Item Value Reference Range Interpretation Comments Specific Ashley (test 1.017 1.005-1.030 code = 2965-2) pH (test code = 5.5 5.0-7.5 5803-2) Urine-Color (test code Yellow Yellow = 5778-6) Appearance (test code Clear Clear = 5767-9) WBC Esterase (test Negative Negative code = 5799-2) Protein (test code = 4+ Negative/Trace A 88640-8) Glucose (test code = 1+ Negative A 2349-9) Ketones (test code = Negative Negative 2514-8) Occult Blood (test Trace Negative A code = 5794-3) Bilirubin (test code = Negative Negative 5770-3) Urobilinogen,Semi-Qn 0.2 mg/dL 0.2-1.0 (test code = 02779-0) Nitrite, Urine (test Negative Negative code = 5802-4) Microscopic See below: Microscopic was Examination (test code indic ated and was = 22239-1) performed.

P erformed by:
[facility] [place] ()

[facility] Description: Urinalysis, [id number] 02:24:00 Test Item Value Reference Range Interpretation Comments Specific Ashley (test 1.017 1.005-1.030 code = 2965-2) pH (test code = 5.5 5.0-7.5 5803-2) Urine-Color (test code Yellow Yellow = 5778-6) Appearance (test code Clear Clear = 5767-9) WBC Esterase (test Negative Negative code = 5799-2) Protein (test code = 4+ Negative/Trace A 57615-5) Glucose (test code = 1+ Negative A 2349-9) Ketones (test code = Negative Negative 2514-8) Occult Blood (test Trace Negative A code = 5794-3) Bilirubin (test code = Negative Negative 5770-3) Urobilinogen,Semi-Qn 0.2 mg/dL 0.2-1.0 (test code = 78950-1) Nitrite, Urine (test Negative Negative code = 5802-4) Microscopic See below: Microscopic was Examination (test code indic ated and was = 55173-0) performed.

P erformed by:
[facility] [place] ()

[facility] Description: Urinalysis, [id number] 02:24:00 Test Item Value Reference Range Interpretation Comments Specific Ashley (test 1.017 1.005-1.030 code = 2965-2) pH (test code = 5.5 5.0-7.5 5803-2) Urine-Color (test code Yellow Yellow = 5778-6) Appearance (test code Clear Clear = 5767-9) WBC Esterase (test Negative Negative code = 5799-2) Protein (test code = 4+ Negative/Trace A 04169-8) Glucose (test code = 1+ Negative A 2349-9) Ketones (test code = Negative Negative 2514-8) Occult Blood (test Trace Negative A code = 5794-3) Bilirubin (test code = Negative Negative 5770-3) Urobilinogen,Semi-Qn 0.2 mg/dL 0.2-1.0 (test code = 62071-2) Nitrite, Urine (test Negative Negative code = 5802-4) Microscopic See below: Microscopic was Examination (test code indic ated and was = 83347-5) performed.

P erformed by:
[facility] ()

[facility] Description: Urinalysis, [id number] 02:24:00 Test Item Value Reference Range Interpretation Comments Specific Ashley (test 1.017 1.005-1.030 code = 2965-2) pH (test code = 5.5 5.0-7.5 5803-2) Urine-Color (test code Yellow Yellow = 5778-6) Appearance (test code Clear Clear = 5767-9) WBC Esterase (test Negative Negative code = 5799-2) Protein (test code = 4+ Negative/Trace A 10561-8) Glucose (test code = 1+ Negative A 2349-9) Ketones (test code = Negative Negative 2514-8) Occult Blood (test Trace Negative A code = 5794-3) Bilirubin (test code = Negative Negative 5770-3) Urobilinogen,Semi-Qn 0.2 mg/dL 0.2-1.0 (test code = 12729-1) Nitrite, Urine (test Negative Negative code = 5802-4) Microscopic See below: Microscopic was Examination (test code indic ated and was = 46349-5) performed.

P erformed by:
[facility] ()

[facility] Description: Urinalysis, [id number] 02:24:00 Test Item Value Reference Range Interpretation Comments Specific Ashley (test 1.017 1.005-1.030 code = 2965-2) pH (test code = 5.5 5.0-7.5 5803-2) Urine-Color (test code Yellow Yellow = 5778-6) Appearance (test code Clear Clear = 5767-9) WBC Esterase (test Negative Negative code = 5799-2) Protein (test code = 4+ Negative/Trace A 94829-8) Glucose (test code = 1+ Negative A 2349-9) Ketones (test code = Negative Negative 2514-8) Occult Blood (test Trace Negative A code = 5794-3) Bilirubin (test code = Negative Negative 5770-3) Urobilinogen,Semi-Qn 0.2 mg/dL 0.2-1.0 (test code = 50877-6) Nitrite, Urine (test Negative Negative code = 5802-4) Microscopic See below: Microscopic was Examination (test code indic ated and was = 83032-4) performed.

P erformed by:
[facility] ()

[facility] Description: Urinalysis, [id number] 02:24:00 Test Item Value Reference Range Interpretation Comments Specific Ashley (test 1.017 1.005-1.030 code = 2965-2) pH (test code = 5.5 5.0-7.5 5803-2) Urine-Color (test code Yellow Yellow = 5778-6) Appearance (test code Clear Clear = 5767-9) WBC Esterase (test Negative Negative code = 5799-2) Protein (test code = 4+ Negative/Trace A 06222-4) Glucose (test code = 1+ Negative A 2349-9) Ketones (test code = Negative Negative 2514-8) Occult Blood (test Trace Negative A code = 5794-3) Bilirubin (test code = Negative Negative 5770-3) Urobilinogen,Semi-Qn 0.2 mg/dL 0.2-1.0 (test code = 01948-8) Nitrite, Urine (test Negative Negative code = 5802-4) Microscopic See below: Microscopic was Examination (test code indic ated and was = 56732-0) performed.

P erformed by:
[facility] [place] ()

[facility] Description: Urinalysis, [id number] 02:24:00 Test Item Value Reference Range Interpretation Comments Specific Ashley (test 1.017 1.005-1.030 code = 2965-2) pH (test code = 5.5 5.0-7.5 5803-2) Urine-Color (test code Yellow Yellow = 5778-6) Appearance (test code Clear Clear = 5767-9) WBC Esterase (test Negative Negative code = 5799-2) Protein (test code = 4+ Negative/Trace A 16044-6) Glucose (test code = 1+ Negative A 2349-9) Ketones (test code = Negative Negative 2514-8) Occult Blood (test Trace Negative A code = 5794-3) Bilirubin (test code = Negative Negative 5770-3) Urobilinogen,Semi-Qn 0.2 mg/dL 0.2-1.0 (test code = 66783-5) Nitrite, Urine (test Negative Negative code = 5802-4) Microscopic See below: Microscopic was Examination (test code indic ated and was = 73342-2) performed.

P erformed by:
[facility] ()

[facility] Description: Urinalysis, [id number] 02:24:00 [facility] Description: Urinalysis, Complete 2021-01-30 02:24:00[facility] Description: Urinalysis, [id number] 02:24:00[facility]sc[facility] Description: Urinalysis, [id number] 02:24:00Microscopic Examination [facility] Description: Urinalysis, [id number] 02:24:00 [facility]scopic [facility] Description: Urinalysis, Complete 2021-01-30 02:24:00[facility]sc[facility] Description: Urinalysis, [id number] 02:24:00[facility]scopic [facility] Description: Urinalysis, [id number] 02:24:00[facility], [id number] 02:24:00 Microscopic [facility] Description: Urinalysis, Complete 2021-01-30 02:24:00Microscopic Examination[facility] Description: Urinalysis, [id number] 02:24:00[facility]scopic [facility] Description: Urinalysis, [id number] 02:24:00Microscopic Examination [facility] Description: Natriuretic peptide B [Mass/volume] in Serum or [id number] 13:54:00 Test Item Value Reference Range Interpretation Comments B-Type Natriuretic Peptide (test 427.5 pg/mL 0.0-100.0 H code = 57587-4) [facility] Description: Natriuretic peptide B [Mass/volume] in Serum or [id number] 13:54:00 Test Item Value Reference Range Interpretation Comments B-Type Natriuretic Peptide (test 427.5 pg/mL 0.0-100.0 H code = 30140-1) [facility] Description: Natriuretic peptide B [Mass/volume] in Serum or [id number] 13:54:00 Test Item Value Reference Range Interpretation Comments B-Type Natriuretic Peptide (test 427.5 pg/mL 0.0-100.0 H code = 94629-9) [facility] Description: Natriuretic peptide B [Mass/volume] in Serum or [id number] 13:54:00 Test Item Value Reference Range Interpretation Comments B-Type Natriuretic Peptide (test 427.5 pg/mL 0.0-100.0 H code = 80614-4) [facility] Description: Natriuretic peptide B [Mass/volume] in Serum or [id number] 13:54:00 Test Item Value Reference Range Interpretation Comments B-Type Natriuretic Peptide (test 427.5 pg/mL 0.0-100.0 H code = 19397-3) [facility] Description: Natriuretic peptide B [Mass/volume] in Serum or [id number] 13:54:00 Test Item Value Reference Range Interpretation Comments B-Type Natriuretic Peptide (test 427.5 pg/mL 0.0-100.0 H code = 71349-5) [facility] Description: Natriuretic peptide B [Mass/volume] in Serum or [id number] 13:54:00 Test Item Value Reference Range Interpretation Comments B-Type Natriuretic Peptide (test 427.5 pg/mL 0.0-100.0 H code = 52281-5) [facility]: Natriuretic peptide B [Mass/volume] in Serum or [id number] 13:54:00 Test Item Value Reference Range Interpretation Comments B-Type Natriuretic Peptide (test 427.5 pg/mL 0.0-100.0 H code = 72642-5) [facility]: Natriuretic peptide B [Mass/volume] in Serum or [id number] 13:54:00 Test Item Value Reference Range Interpretation Comments B-Type Natriuretic Peptide (test 427.5 pg/mL 0.0-100.0 H code = 42317-2) [facility] Description: Natriuretic peptide B [Mass/volume] in Serum or [id number] 13:54:00 Test Item Value Reference Range Interpretation Comments B-Type Natriuretic Peptide (test 427.5 pg/mL 0.0-100.0 H code = 98044-5) [facility] Description: Natriuretic peptide B [Mass/volume] in Serum or [id number] 13:54:00 Test Item Value Reference Range Interpretation Comments B-Type Natriuretic Peptide (test 427.5 pg/mL 0.0-100.0 H code = 17151-0) [facility] Description: Natriuretic peptide B [Mass/volume] in Serum or [id number] 13:54:00 Test Item Value Reference Range Interpretation Comments B-Type Natriuretic Peptide (test 427.5 pg/mL 0.0-100.0 H code = 60846-2) [facility] Description: Natriuretic peptide B [Mass/volume] in Serum or [id number] 13:54:00 Test Item Value Reference Range Interpretation Comments B-Type Natriuretic Peptide (test 427.5 pg/mL 0.0-100.0 H code = 05223-5) [facility] Description: Natriuretic peptide B [Mass/volume] in Serum or [id number] 13:54:00 Test Item Value Reference Range Interpretation Comments B-Type Natriuretic Peptide (test 427.5 pg/mL 0.0-100.0 H code = 65801-2) [facility] Description: Natriuretic peptide B [Mass/volume] in Serum or [id number] 13:54:00 Test Item Value Reference Range Interpretation Comments B-Type Natriuretic Peptide (test 427.5 pg/mL 0.0-100.0 H code = 40615-9) [facility] Description: Natriuretic peptide B [Mass/volume] in Serum or [id number] 13:54:00 Test Item Value Reference Range Interpretation Comments B-Type Natriuretic Peptide (test 427.5 pg/mL 0.0-100.0 H code = 17048-5) [facility] Description: Natriuretic peptide B [Mass/volume] in Serum or [id number] 13:54:00 Test Item Value Reference Range Interpretation Comments B-Type Natriuretic Peptide (test 427.5 pg/mL 0.0-100.0 H code = 27499-1) [facility] Description: Natriuretic peptide B [Mass/volume] in Serum or [id number] 13:54:00 Test Item Value Reference Range Interpretation Comments B-Type Natriuretic Peptide (test 427.5 pg/mL 0.0-100.0 H code = 56267-4) [facility] Description: Phosphate [Mass/volume] in Serum or Plasma 2020-12-04 02:42:00 Test Item Value Reference Range Interpretation Comments Phosphorus (test code = 2777-1) 4.4 mg/dL 2.8-4.1 H [facility] Description: Phosphate [Mass/volume] in Serum or Plasma 2020-12-04 02:42:00 Test Item Value Reference Range Interpretation Comments Phosphorus (test code = 2777-1) 4.4 mg/dL 2.8-4.1 H [facility] Description: Phosphate [Mass/volume] in Serum or Plasma 2020-12-04 02:42:00 Test Item Value Reference Range Interpretation Comments Phosphorus (test code = 2777-1) 4.4 mg/dL 2.8-4.1 H [facility] Description: Phosphate [Mass/volume] in Serum or Plasma 2020-12-04 02:42:00 Test Item Value Reference Range Interpretation Comments Phosphorus (test code = 2777-1) 4.4 mg/dL 2.8-4.1 H [facility] Description: Phosphate [Mass/volume] in Serum or Plasma 2020-12-04 02:42:00 Test Item Value Reference Range Interpretation Comments Phosphorus (test code = 2777-1) 4.4 mg/dL 2.8-4.1 H [facility] Description: Phosphate [Mass/volume] in Serum or Plasma 2020-12-04 02:42:00 Test Item Value Reference Range Interpretation Comments Phosphorus (test code = 2777-1) 4.4 mg/dL 2.8-4.1 H [facility] Description: Phosphate [Mass/volume] in Serum or Plasma 2020-12-04 02:42:00 Test Item Value Reference Range Interpretation Comments Phosphorus (test code = 2777-1) 4.4 mg/dL 2.8-4.1 H [facility] Description: Phosphate [Mass/volume] in Serum or Plasma 2020-12-04 02:42:00 Test Item Value Reference Range Interpretation Comments Phosphorus (test code = 2777-1) 4.4 mg/dL 2.8-4.1 H [facility] Description: Phosphate [Mass/volume] in Serum or Plasma 2020-12-04 02:42:00 Test Item Value Reference Range Interpretation Comments Phosphorus (test code = 2777-1) 4.4 mg/dL 2.8-4.1 H [facility] Description: Phosphate [Mass/volume] in Serum or Plasma 2020-12-04 02:42:00 Test Item Value Reference Range Interpretation Comments Phosphorus (test code = 2777-1) 4.4 mg/dL 2.8-4.1 H [facility] Description: Phosphate [Mass/volume] in Serum or Plasma 2020-12-04 02:42:00 Test Item Value Reference Range Interpretation Comments Phosphorus (test code = 2777-1) 4.4 mg/dL 2.8-4.1 H [facility] Description: Phosphate [Mass/volume] in Serum or Plasma 2020-12-04 02:42:00 Test Item Value Reference Range Interpretation Comments Phosphorus (test code = 2777-1) 4.4 mg/dL 2.8-4.1 H [facility] Description: Phosphate [Mass/volume] in Serum or Plasma [...] >59 L Am (test code = mL/min/1.73 43597-0) eGFR If Africn Am 37 >59 L [facility] currently (test code = mL/min/1[place]73 [place] [address]-0) compliance with the current recommendations of the [employer]. [facility] [place] will update re porting as new guidelin es are published from the NKF-ASN Task force.
<br/ >Perfor med by:
[facility] ([place])

BUN/Creatinine 22 9-20 H Ratio (test code = 3097-3) Sodium (test code = 142 mmol/L 154-458 1575-2) Potassium (test 4.3 mmol/L 3.5-5.2 code = 2823-3) Chloride (test code 100 mmol/L 96-106 = 5-0) Carbon Dioxide, 28 mmol/L 20-29 Total (test code = 2027-11) Calcium (test code 9.2 mg/dL 8.7-10.2 = 11475-7) Protein, Total 6.5 g/dL 6.0-8.5 (test code = 2885-2) Albumin (test code 3.5 g/dL 4.0-5.0 L = 1750-7) Globulin, Total 3.0 g/dL 1.5-4.5 (test code = 45098-9) A/G Ratio (test 1.2 1.2-2.2 code = 175-0) Bilirubin, Total 0.4 mg/dL 0.0-1.2 (test code [...] 44 - 121

Pe rformed by:
[facility] [place] ([place])

AST (SGOT) (test 20 IU/L 0-40 code = 1920-8) ALT (SGPT) (test 22 IU/L 0-44 code = 1742-6) [facility] Description: Comp. Metabolic Panel (14)2020-12-04 02:12:00 Test Item Value Reference Range Interpretation Comments Glucose (test code 315 mg/dL 65-99 H = 2345-7) BUN (test code = 52 mg/dL 6-24 H 3094-0) Creatinine (test 2.32 mg/dL 0.76-1.27 H code = 2160-0) eGFR If NonAfricn 32 >59 L Am (test code = mL/min/1.73 50849-6) eGFR If Africn Am 37 >59 L [facility] currently (test code = mL/min/1.73 [place] [address]280-8) compliance with the current recommendations of the [employer]. [facility] [place] will update re porting as new guidelin es are published from the NKF-ASN Task force.
<br/ >Perfor med by:
[facility] ([place])

BUN/Creatinine 22 9-20 H Ratio (test code = 3097-3) Sodium (test code = 142 mmol/L 759-293 0530-2) Potassium (test 4.3 mmol/L 3.5-5.2 code = 2823-3) Chloride (test code 100 mmol/L 96-106 = 2075-0) Carbon Dioxide, 28 mmol/L 20-29 Total (test code = 2027-) Calcium (test code 9.2 mg/dL 8.7-10.2 = 88203-2) Protein, Total 6.5 g/dL 6.0-8.5 (test code = 2885-2) Albumin (test code 3.5 g/dL 4.0-5.0 L = 1751-7) Globulin, Total 3.0 g/dL 1.5-4.5 (test code = 02364-2) A/G Ratio (test 1.2 1.2-2.2 code = [...] 22 IU/L 0-44 code = 1742-6) [facility] Description: Comp. Metabolic Panel (14)2020-12-04 02:12:00 Test Item Value Reference Range Interpretation Comments Glucose (test code 315 mg/dL 65-99 H = 2345-7) BUN (test code = 52 mg/dL 6-24 H 3094-0) Creatinine (test 2.32 mg/dL 0.76-1.27 H code = 2160-0) eGFR If NonAfricn 32 >59 L Am (test code = mL/min/1.73 43809-3) eGFR If Africn Am 37 >59 L [facility] currently (test code = mL/min/1.73 [place]GFR [place] 05636-1) compliance with the current recommendations of the [employer]. [facility] [place] will update re porting as new guidelin es are published from the NKF-ASN Task force.
<br/ >Perfor med by:
[facility] ([place])

BUN/Creatinine 22 9-20 H Ratio (test code = 3097-3) Sodium (test code = 142 mmol/L 186-330 7579-2) Potassium (test 4.3 mmol/L 3.5-5.2 code = 2823-3) Chloride (test code 100 mmol/L 96-106 = 2075-0) Carbon Dioxide, 28 mmol/L 20-29 Total (test code = 2027-) Calcium (test code 9.2 mg/dL 8.7-10.2 = 35409-0) Protein, Total 6.5 g/dL 6.0-8.5 (test code = 2885-2) Albumin (test code 3.5 g/dL 4.0-5.0 L = 175-7) Globulin, Total 3.0 g/dL 1.5-4.5 (test code = 18796-6) A/G Ratio (test 1.2 1.2-2.2 code = [...] 22 IU/L 0-44 code = 1742-6) [facility] Description: Comp. Metabolic Panel (14)2020-12-04 02:12:00 Test Item Value Reference Range Interpretation Comments Glucose (test code 315 mg/dL 65-99 H = 2345-7) BUN (test code = 52 mg/dL 6-24 H 3094-0) Creatinine (test 2.32 mg/dL 0.76-1.27 H code = 2160-0) eGFR If NonAfricn 32 >59 L Am (test code = mL/min/1.73 05558-4) eGFR If Africn Am 37 >59 L [facility] currently (test code = mL/min/1.73 [place] [address]-0) compliance with the current recommendations of the [employer]. [facility] [place] will update re porting as new guidelin es are published from the NKF-ASN Task force.
<br/ >Perfor med by:
[facility] [place] [facility] ([place])

BUN/Creatinine 22 9-20 H Ratio (test code = 3097-3) Sodium (test code = 142 mmol/L 783-155 5806-2) Potassium (test 4.3 mmol/L 3.5-5.2 code = 2823-3) Chloride (test code 100 mmol/L 96-106 = 2075-0) Carbon Dioxide, 28 mmol/L 20-29 Total (test code = 2027-) Calcium (test code 9.2 mg/dL 8.7-10.2 = 56278-3) Protein, Total 6.5 g/dL 6.0-8.5 (test code = 2885-2) Albumin (test code 3.5 g/dL 4.0-5.0 L = 1751-7) Globulin, Total 3.0 g/dL 1.5-4.5 (test code = 32594-7) A/G Ratio (test 1.2 1.2-2.2 code = 1759-0) Bilirubin, Total 0.4 mg/dL 0.0-1.2 (test code = 1975-2) Alkaline 107 IU/L 48-121 Phosphatase (test Effectiv e November code = 0580-6) 2020 Mayelin line Phosphatase referenc e interval [...] IU/L 0-44 code = 1742-6) [facility] Description: Comp. Metabolic Panel (14)2020-12-04 02:12:00 Test Item Value Reference Range Interpretation Comments Glucose (test code 315 mg/dL 65-99 H = 2345-7) BUN (test code = 52 mg/dL 6-24 H 3094-0) Creatinine (test 2.32 mg/dL 0.76-1.27 H code = 2160-0) eGFR If NonAfricn 32 >59 L Am (test code = mL/min/1.73 15942-8) eGFR If Africn Am 37 >59 L [facility] currently (test code = mL/min/1.73 [place] 6[address]-8) compliance with the current recommendations of the [employer]. [facility] [place] will update re porting as new guidelin es are published from the NKF-ASN Task force.
<br/ >Perfor med by:
[facility] [place] [facility] ([place])

BUN/Creatinine 22 9-20 H Ratio (test code = 3097-3) Sodium (test code = 142 mmol/L 323-566 3483-2) Potassium (test 4.3 mmol/L 3.5-5.2 code = 2823-3) Chloride (test code 100 mmol/L 96-106 = 5-0) Carbon Dioxide, 28 mmol/L 20-29 Total (test code = 2027-) Calcium (test code 9.2 mg/dL 8.7-10.2 = 80210-4) Protein, Total 6.5 g/dL 6.0-8.5 (test code = 2885-2) Albumin (test code 3.5 g/dL 4.0-5.0 L = 1751-7) Globulin, Total 3.0 g/dL 1.5-4.5 (test code = 99461-0) A/G Ratio (test 1.2 1.2-2.2 code = [...] 44 - 121

Pe rformed by:
[facility] [place] ([place])

AST (SGOT) (test 20 IU/L 0-40 code = 1920-8) ALT (SGPT) (test 22 IU/L 0-44 code = 1742-6) [facility] Description: Comp. Metabolic Panel (14)2020-12-04 02:12:00 Test Item Value Reference Range Interpretation Comments Glucose (test code 315 mg/dL 65-99 H = 2345-7) BUN (test code = 52 mg/dL 6-24 H 3094-0) Creatinine (test 2.32 mg/dL 0.76-1.27 H code = 2160-0) eGFR If NonAfricn 32 >59 L Am (test code = mL/min/1.73 41736-5) eGFR If Africn Am 37 >59 L [facility] currently (test code = mL/min/1.73 [place] 53400-8) compliance with the current recommendations of the [employer]. [facility] [place] will update re porting as new guidelin es are published from the NKF-ASN Task force.
<br/ >Perfor med by:
[facility] [place] [facility] ([place])

BUN/Creatinine 22 9-20 H Ratio (test code = 3097-3) Sodium (test code = 142 mmol/L 352-264 7412-2) Potassium (test 4.3 mmol/L 3.5-5.2 code = 2823-3) Chloride (test code 100 mmol/L 96-106 = 5-0) Carbon Dioxide, 28 mmol/L 20-29 Total (test code = 2027-) Calcium (test code 9.2 mg/dL 8.7-10.2 = 92586-8) Protein, Total 6.5 g/dL 6.0-8.5 (test code = 2885-2) Albumin (test code 3.5 g/dL 4.0-5.0 L = 1751-7) Globulin, Total 3.0 g/dL 1.5-4.5 (test code = 02403-7) A/G Ratio (test 1.2 1.2-2.2 code = [...] 44 - 121

Pe rformed by:
[facility] [place] ([place])

AST (SGOT) (test 20 IU/L 0-40 code = 1920-8) ALT (SGPT) (test 22 IU/L 0-44 code = 1742-6) [facility] Description: Comp. Metabolic Panel (14)2020-12-04 02:12:00 Test Item Value Reference Range Interpretation Comments Glucose (test code 315 mg/dL 65-99 H = 2345-7) BUN (test code = 52 mg/dL 6-24 H 3094-0) Creatinine (test 2.32 mg/dL 0.76-1.27 H code = 2160-0) eGFR If NonAfricn 32 >59 L Am (test code = mL/min/1.73 54555-7) eGFR If Africn Am 37 >59 L [facility] currently (test code = mL/min/1.73 [place] [address]-5) compliance with the current recommendations of the [employer]. [facility] [place] will update re porting as new guidelin es are published from the NKF-ASN Task force.
<br/ >Perfor med by:
[facility] [place] ([place])

BUN/Creatinine 22 9-20 H Ratio (test code = 3097-3) Sodium (test code = 142 mmol/L 007-079 1512-2) Potassium (test 4.3 mmol/L 3.5-5.2 code = 2823-3) Chloride (test code 100 mmol/L 96-106 = 2074-0) Carbon Dioxide, 28 mmol/L 20-29 Total (test code = 2027-11) Calcium (test code 9.2 mg/dL 8.7-10.2 = 78401-7) Protein, Total 6.5 g/dL 6.0-8.5 (test code = 2885-2) Albumin (test code 3.5 g/dL 4.0-5.0 L = 1751-7) Globulin, Total 3.0 g/dL 1.5-4.5 (test code = 66331-6) A/G Ratio (test 1.2 1.2-2.2 code = [...] IU/L 0-44 code = 1742-6) [facility] Description: Comp. Metabolic Panel (14)2020-12-04 02:12:00 Test Item Value Reference Range Interpretation Comments Glucose (test code 315 mg/dL 65-99 H = 2345-7) BUN (test code = 52 mg/dL 6-24 H 3094-0) Creatinine (test 2.32 mg/dL 0.76-1.27 H code = 2160-0) eGFR If NonAfricn 32 >59 L Am (test code = mL/min/1.73 30393-1) eGFR If Africn Am 37 >59 L [facility] currently (test code = mL/min/1.73 [place] [address]400-5) compliance with the current recommendations of the [employer]. [facility] [place] will update re porting as new guidelin es are published from the NKF-ASN Task force.
<br/ >Perfor med by:
[facility] [place] [facility] ([place])

BUN/Creatinine 22 9-20 H Ratio (test code = 3097-3) Sodium (test code = 142 mmol/L 911-233 5107-2) Potassium (test 4.3 mmol/L 3.5-5.2 code = 2823-3) Chloride (test code 100 mmol/L 96-106 = 2075-0) Carbon Dioxide, 28 mmol/L 20-29 Total (test code = 2027-) Calcium (test code 9.2 mg/dL 8.7-10.2 = 76822-8) Protein, Total 6.5 g/dL 6.0-8.5 (test code = 2885-2) Albumin (test code 3.5 g/dL 4.0-5.0 L = 1751-7) Globulin, Total 3.0 g/dL 1.5-4.5 (test code = 83972-9) A/G Ratio (test 1.2 1.2-2.2 code = [...] 22 IU/L 0-44 code = 1742-6) [facility] Description: Comp. Metabolic Panel (14)2020-12-04 02:12:00 Test Item Value Reference Range Interpretation Comments Glucose (test code 315 mg/dL 65-99 H = 2345-7) BUN (test code = 52 mg/dL 6-24 H 3094-0) Creatinine (test 2.32 mg/dL 0.76-1.27 H code = 2160-0) eGFR If NonAfricn 32 >59 L Am (test code = mL/min/1.73 93494-5) eGFR If Africn Am 37 >59 L [facility] currently (test code = mL/min/1.73 [place] 70064-3) compliance with the current recommendations of the [employer]. [facility] [place] will update re porting as new guidelin es are published from the NKF-ASN Task force.
<br/ >Perfor med by:
[facility] [place] [facility] ([place])

BUN/Creatinine 22 9-20 H Ratio (test code = 3097-3) Sodium (test code = 142 mmol/L 135-222 3890-2) Potassium (test 4.3 mmol/L 3.5-5.2 code = 2823-3) Chloride (test code 100 mmol/L 96-106 = 2075-0) Carbon Dioxide, 28 mmol/L 20-29 Total (test code = 2027-) Calcium (test code 9.2 mg/dL 8.7-10.2 = 61562-9) Protein, Total 6.5 g/dL 6.0-8.5 (test code = 2885-2) Albumin (test code 3.5 g/dL 4.0-5.0 L = 1751-7) Globulin, Total 3.0 g/dL 1.5-4.5 (test code = 40376-3) A/G Ratio (test 1.2 1.2-2.2 code = [...] >59 L Am (test code = mL/min/1.73 26162-5) eGFR If Africn Am 37 >59 L [facility] currently (test code = mL/min/1.73 [place] 06201-8) compliance with the current recommendations of the National Kidney Foundation. [facility] [place] will update re porting as new guidelin es are published from the NKF-ASN Task force.
<br/ >Perfor med by:
[facility] [place] [facility] ([place])

BUN/Creatinine 22 9-20 H Ratio (test code = 3097-3) Sodium (test code = 142 mmol/L 614-663 0036-2) Potassium (test 4.3 mmol/L 3.5-5.2 code = 2823-3) Chloride (test code 100 mmol/L 96-106 = 2075-0) Carbon Dioxide, 28 mmol/L 20-29 Total (test code = 2027-) Calcium (test code 9.2 mg/dL 8.7-10.2 = 35792-4) Protein, Total 6.5 g/dL 6.0-8.5 (test code = 2885-2) Albumin (test code 3.5 g/dL 4.0-5.0 L = 1751-7) Globulin, Total 3.0 g/dL 1.5-4.5 (test code = 76193-0) A/G Ratio (test 1.2 1.2-2.2 code = [...] 44 - 121

Pe rformed by:
[facility] [place] ([place])

AST (SGOT) (test 20 IU/L 0-40 code = 1920-8) ALT (SGPT) (test 22 IU/L 0-44 code = 1742-6) [facility] Description: Comp. Metabolic Panel (14)2020-12-04 02:12:00 Test Item Value Reference Range Interpretation Comments Glucose (test code 315 mg/dL 65-99 H = 2345-7) BUN (test code = 52 mg/dL 6-24 H 3094-0) Creatinine (test 2.32 mg/dL 0.76-1.27 H code = 2160-0) eGFR If NonAfricn 32 >59 L Am (test code = mL/min/1.73 80858-8) eGFR If Africn Am 37 >59 L [facility] currently (test code = mL/min/1.73 [place] [address]-1) compliance with the current recommendations of the National Kidney Foundation. [facility] [place] will update re porting as new guidelin es are published from the NKF-ASN Task force.
<br/ >Perfor med by:
[facility] [place] ([place])

BUN/Creatinine 22 9-20 H Ratio (test code = 3097-3) Sodium (test code = 142 mmol/L 465-853 8487-2) Potassium (test 4.3 mmol/L 3.5-5.2 code = 2823-3) Chloride (test code 100 mmol/L 96-106 = 2075-0) Carbon Dioxide, 28 mmol/L 20-29 Total (test code = 2027-) Calcium (test code 9.2 mg/dL 8.7-10.2 = 00448-5) Protein, Total 6.5 g/dL 6.0-8.5 (test code = 2885-2) Albumin (test code 3.5 g/dL 4.0-5.0 L = 1751-7) Globulin, Total 3.0 g/dL 1.5-4.5 (test code = 18087-3) A/G Ratio (test 1.2 1.2-2.2 code = [...] 44 - 121

Pe rformed by:
[facility] [place] ([place])

AST (SGOT) (test 20 IU/L 0-40 code = 1920-8) ALT (SGPT) (test 22 IU/L 0-44 code = 1742-6) [facility] Description: Comp. Metabolic Panel (14)2020-12-04 02:12:00 Test Item Value Reference Range Interpretation Comments Glucose (test code 315 mg/dL 65-99 H = 2345-7) BUN (test code = 52 mg/dL 6-24 H 3094-0) Creatinine (test 2.32 mg/dL 0.76-1.27 H code = 2160-0) eGFR If NonAfricn 32 >59 L Am (test code = mL/min/1.73 46684-0) eGFR If Africn Am 37 >59 L [facility] currently (test code = mL/min/1.73 [place] [address]-5) compliance with the current recommendations of the National Kid[employer] Foundation. [facility] [place] will update re porting as new guidelin es are published from the NKF-ASN Task force.
<br/ >Perfor med by:
[facility] [place] [facility] ([place])

BUN/Creatinine 22 9-20 H Ratio (test code = 3097-3) Sodium (test code = 142 mmol/L 148-893 5733-2) Potassium (test 4.3 mmol/L 3.5-5.2 code = 2823-3) Chloride (test code 100 mmol/L 96-106 = 2075-0) Carbon Dioxide, 28 mmol/L 20-29 Total (test code = 2027-) Calcium (test code 9.2 mg/dL 8.7-10.2 = 06275-2) Protein, Total 6.5 g/dL 6.0-8.5 (test code = 2885-2) Albumin (test code 3.5 g/dL 4.0-5.0 L = 1751-7) Globulin, Total 3.0 g/dL 1.5-4.5 (test code = 23277-7) A/G Ratio (test 1.2 1.2-2.2 code = [...] 44 - 121

Pe rformed by:
[facility] [place] ([place])

AST (SGOT) (test 20 IU/L 0-40 code = 1920-8) ALT (SGPT) (test 22 IU/L 0-44 code = 1742-6) [facility] Description: Comp. Metabolic Panel (14)2020-12-04 02:12:00 Test Item Value Reference Range Interpretation Comments Glucose (test code 315 mg/dL 65-99 H = 2345-7) BUN (test code = 52 mg/dL 6-24 H 3094-0) Creatinine (test 2.32 mg/dL 0.76-1.27 H code = 2160-0) eGFR If NonAfricn 32 >59 L Am (test code = mL/min/1.73 44553-2) eGFR If Africn Am 37 >59 L [facility] currently (test code = mL/min/1.73 [place] [address]-1) compliance with the current recommendations of the [employer] Kid[employer]. [facility] [place] will update re porting as new guidelin es are published from the NKF-ASN Task force.
<br/ >Perfor med by:
[facility] [place] ([place])

BUN/Creatinine 22 9-20 H Ratio (test code = 3097-3) Sodium (test code = 142 mmol/L 546-864 2127-2) Potassium (test 4.3 mmol/L 3.5-5.2 code = 2823-3) Chloride (test code 100 mmol/L 96-106 = 2075-0) Carbon Dioxide, 28 mmol/L 20-29 Total (test code = 2027-) Calcium (test code 9.2 mg/dL 8.7-10.2 = 02617-0) Protein, Total 6.5 g/dL 6.0-8.5 (test code = 2885-2) Albumin (test code 3.5 g/dL 4.0-5.0 L = 1751-7) Globulin, Total 3.0 g/dL 1.5-4.5 (test code = 08374-6) A/G Ratio (test 1.2 1.2-2.2 code = [...] 22 IU/L 0-44 code = 1742-6) [facility] Description: Comp. Metabolic Panel (14)2020-12-04 02:12:00 Test Item Value Reference Range Interpretation Comments Glucose (test code 315 mg/dL 65-99 H = 2345-7) BUN (test code = 52 mg/dL 6-24 H 3094-0) Creatinine (test 2.32 mg/dL 0.76-1.27 H code = 2160-0) eGFR If NonAfricn 32 >59 L Am (test code = mL/min/1.73 61399-3) eGFR If Africn Am 37 >59 L [facility] currently (test code = mL/min/1.73 [place] 15829-4) compliance with the current recommendations of the [employer]. [facility] [place] will update re porting as new guidelin es are published from the NKF-ASN Task force.
<br/ >Perfor med by:
[facility] [place] [facility] ([place])

BUN/Creatinine 22 9-20 H Ratio (test code = 3097-3) Sodium (test code = 142 mmol/L 324-951 0368-2) Potassium (test 4.3 mmol/L 3.5-5.2 code = 2823-3) Chloride (test code 100 mmol/L 96-106 = 2075-0) Carbon Dioxide, 28 mmol/L 20-29 Total (test code = 2027-) Calcium (test code 9.2 mg/dL 8.7-10.2 = 61846-8) Protein, Total 6.5 g/dL 6.0-8.5 (test code = 2885-2) Albumin (test code 3.5 g/dL 4.0-5.0 L = 1751-7) Globulin, Total 3.0 g/dL 1.5-4.5 (test code = 90326-6) A/G Ratio (test 1.2 1.2-2.2 code = [...] 44 - 121

Pe rformed by:
[facility] [place] ([place])

AST (SGOT) (test 20 IU/L 0-40 code = 1920-8) ALT (SGPT) (test 22 IU/L 0-44 code = 1742-6) [facility] Description: Comp. Metabolic Panel (14)2020-12-04 02:12:00 Test Item Value Reference Range Interpretation Comments Glucose (test code 315 mg/dL 65-99 H = 2345-7) BUN (test code = 52 mg/dL 6-24 H 3094-0) Creatinine (test 2.32 mg/dL 0.76-1.27 H code = 2160-0) eGFR If NonAfricn 32 >59 L Am (test code = mL/min/1.73 50530-3) eGFR If Africn Am 37 >59 L [facility] currently (test code = mL/min/1.73 [place] [address]-8) compliance with the current recommendations of the [employer]. [facility] [place] will update re porting as new guidelin es are published from the NKF-ASN Task force.
<br/ >Perfor med by:
[facility] [place] ([place])

BUN/Creatinine 22 9-20 H Ratio (test code = 3097-3) Sodium (test code = 142 mmol/L 603-249 5268-2) Potassium (test 4.3 mmol/L 3.5-5.2 code = 2823-3) Chloride (test code 100 mmol/L 96-106 = 2075-0) Carbon Dioxide, 28 mmol/L 20-29 Total (test code = 2027-) Calcium (test code 9.2 mg/dL 8.7-10.2 = 32626-8) Protein, Total 6.5 g/dL 6.0-8.5 (test code = 2885-2) Albumin (test code 3.5 g/dL 4.0-5.0 L = 1751-7) Globulin, Total 3.0 g/dL 1.5-4.5 (test code = 83695-5) A/G Ratio (test 1.2 1.2-2.2 code = [...] >59 L Am (test code = mL/min/1.73 70009-4) eGFR If Africn Am 37 >59 L [facility] currently (test code = mL/min/1.73 [place] 10527-3) compliance with the current recommendations of the [employer]. [facility] [place] will update re porting as new guidelin es are published from the NKF-ASN Task force.
<br/ >Perfor med by:
[facility] [place] [facility] ([place])

BUN/Creatinine 22 9-20 H Ratio (test code = 3097-3) Sodium (test code = 142 mmol/L 209-755 1896-2) Potassium (test 4.3 mmol/L 3.5-5.2 code = 2823-3) Chloride (test code 100 mmol/L 96-106 = 2075-0) Carbon Dioxide, 28 mmol/L 20-29 Total (test code = 2027-) Calcium (test code 9.2 mg/dL 8.7-10.2 = 43508-4) Protein, Total 6.5 g/dL 6.0-8.5 (test code = 2885-2) Albumin (test code 3.5 g/dL 4.0-5.0 L = 1751-7) Globulin, Total 3.0 g/dL 1.5-4.5 (test code = 38836-3) A/G Ratio (test 1.2 1.2-2.2 code = [...] 44 - 121

Pe rformed by:
[facility] [place] ([place])

AST (SGOT) (test 20 IU/L 0-40 code = 1920-8) ALT (SGPT) (test 22 IU/L 0-44 code = 1742-6) [facility] Description: Comp. Metabolic Panel (14)2020-12-04 02:12:00 Test Item Value Reference Range Interpretation Comments Glucose (test code 315 mg/dL 65-99 H = 2345-7) BUN (test code = 52 mg/dL 6-24 H 3094-0) Creatinine (test 2.32 mg/dL 0.76-1.27 H code = 2160-0) eGFR If NonAfricn 32 >59 L Am (test code = mL/min/1.73 12337-5) eGFR If Africn Am 37 >59 L [facility] currently (test code = mL/min/1.73 [place]GFR in 20891-7) compliance with the current recommendations of the [employer]. [facility] [place] will update re porting as new guidelin es are published from the NKF-ASN Task force.
<br/ >Perfor med by:
[facility] [place] ([place])

BUN/Creatinine 22 9-20 H Ratio (test code = 3097-3) Sodium (test code = 142 mmol/L 087-640 1124-2) Potassium (test 4.3 mmol/L 3.5-5.2 code = 2823-3) Chloride (test code 100 mmol/L 96-106 = 2075-0) Carbon Dioxide, 28 mmol/L 20-29 Total (test code = 2027-) Calcium (test code 9.2 mg/dL 8.7-10.2 = 40553-4) Protein, Total 6.5 g/dL 6.0-8.5 (test code = 2885-2) Albumin (test code 3.5 g/dL 4.0-5.0 L = 1751-7) Globulin, Total 3.0 g/dL 1.5-4.5 (test code = 40847-5) A/G Ratio (test 1.2 1.2-2.2 code = [...] 44 - 121

Pe rformed by:
[facility] [place] ([place])

AST (SGOT) (test 20 IU/L 0-40 code = 1920-8) ALT (SGPT) (test 22 IU/L 0-44 code = 1742-6) [facility] Description: Comp. Metabolic Panel (14)2020-12-04 02:12:00 Test Item Value Reference Range Interpretation Comments Glucose (test code 315 mg/dL 65-99 H = 2345-7) BUN (test code = 52 mg/dL 6-24 H 3094-0) Creatinine (test 2.32 mg/dL 0.76-1.27 H code = 2160-0) eGFR If NonAfricn 32 >59 L Am (test code = mL/min/1.73 96569-8) eGFR If Africn Am 37 >59 L [facility] currently (test code = mL/min/1.73 [place] 67529-4) compliance with the current recommendations of the [employer]. [facility] [place] will update re porting as new guidelin es are published from the NKF-ASN Task force.
<br/ >Perfor med by:
[facility] [place] [facility] ([place])

BUN/Creatinine 22 9-20 H Ratio (test code = 3097-3) Sodium (test code = 142 mmol/L 272-066 0804-2) Potassium (test 4.3 mmol/L 3.5-5.2 code = 2823-3) Chloride (test code 100 mmol/L 96-106 = 2075-0) Carbon Dioxide, 28 mmol/L 20-29 Total (test code = 2027-) Calcium (test code 9.2 mg/dL 8.7-10.2 = 12695-7) Protein, Total 6.5 g/dL 6.0-8.5 (test code = 2885-2) Albumin (test code 3.5 g/dL 4.0-5.0 L = 1751-7) Globulin, Total 3.0 g/dL 1.5-4.5 (test code = 64283-9) A/G Ratio (test 1.2 1.2-2.2 code = [...] IU/L 0-44 code = 1742-6) [facility] Description: Natriuretic peptide B [Mass/volume] in Serum or [id number] 14:32:00 Test Item Value Reference Range Interpretation Comments B-Type Natriuretic Peptide (test 682.3 pg/mL 0.0-100.0 H code = 66514-9) [facility]: Natriuretic [facility] B [Mass/volume] in Serum or [id number] 14:32:00 Test Item Value Reference Range Interpretation Comments B-Type Natriuretic Peptide (test 682.3 pg/mL 0.0-100.0 H code = 15740-7) [facility] Description: Natriuretic peptide B [Mass/volume] in Serum or Ixpnox9741-41-83 14:32:00 Test Item Value Reference Range Interpretation Comments B-Type Natriuretic Peptide (test 682.3 pg/mL 0.0-100.0 H code = 34338-2) [facility] Description: Natriuretic peptide B [Mass/volume] in Serum or [id number] 14:32:00 Test Item Value Reference Range Interpretation Comments B-Type Natriuretic Peptide (test 682.3 pg/mL 0.0-100.0 H code = 22919-1) [facility] Description: Natriuretic peptide B [Mass/volume] in Serum or [id number] 14:32:00 Test Item Value Reference Range Interpretation Comments B-Type Natriuretic Peptide (test 682.3 pg/mL 0.0-100.0 H code = 12784-7) [facility] Description: Natriuretic peptide B [Mass/volume] in Serum or [id number] 14:32:00 Test Item Value Reference Range Interpretation Comments B-Type Natriuretic Peptide (test 682.3 pg/mL 0.0-100.0 H code = 32967-7) [facility]: Natriuretic peptide B [Mass/volume] in Serum or [id number] 14:32:00 Test Item Value Reference Range Interpretation Comments B-Type Natriuretic Peptide (test 682.3 pg/mL 0.0-100.0 H code = 18352-6) [facility] Description: Natriuretic peptide B [Mass/volume] in Serum or [id number] 14:32:00 Test Item Value Reference Range Interpretation Comments B-Type Natriuretic Peptide (test 682.3 pg/mL 0.0-100.0 H code = 11917-9) [facility] Description: Natriuretic peptide B [Mass/volume] in Serum or Eryfgj4881-49-58 14:32:00 Test Item Value Reference Range Interpretation Comments B-Type Natriuretic Peptide (test 682.3 pg/mL 0.0-100.0 H code = 50636-7) [facility] Description: Natriuretic peptide B [Mass/volume] in Serum or Yrehms3772-27-81 14:32:00 Test Item Value Reference Range Interpretation Comments B-Type Natriuretic Peptide (test 682.3 pg/mL 0.0-100.0 H code = 27657-4) [facility] Description: Natriuretic peptide B [Mass/volume] in Serum or [id number] 14:32:00 Test Item Value Reference Range Interpretation Comments B-Type Natriuretic Peptide (test 682.3 pg/mL 0.0-100.0 H code = 50004-6) [facility] Description: Natriuretic peptide B [Mass/volume] in Serum or Hxeccv3930-12-65 14:32:00 Test Item Value Reference Range Interpretation Comments B-Type Natriuretic Peptide (test 682.3 pg/mL 0.0-100.0 H code = 51935-9) [facility] Description: Natriuretic peptide B [Mass/volume] in Serum or [id number] 14:32:00 Test Item Value Reference Range Interpretation Comments B-Type Natriuretic Peptide (test 682.3 pg/mL 0.0-100.0 H code = 96860-2) [facility] Description: Natriuretic peptide B [Mass/volume] in Serum or [id number] 14:32:00 Test Item Value Reference Range Interpretation Comments B-Type Natriuretic Peptide (test 682.3 pg/mL 0.0-100.0 H code = 10484-3) [facility] Description: Natriuretic peptide B [Mass/volume] in Serum or [id number] 14:32:00 Test Item Value Reference Range Interpretation Comments B-Type Natriuretic Peptide (test 682.3 pg/mL 0.0-100.0 H code = 82545-2) [facility] Description: Natriuretic peptide B [Mass/volume] in Serum or Qzlhce6328-89-41 14:32:00 Test Item Value Reference Range Interpretation Comments B-Type Natriuretic Peptide (test 682.3 pg/mL 0.0-100.0 H code = 67136-3) [facility] Description: Natriuretic peptide B [Mass/volume] in Serum or [id number] 14:32:00 Test Item Value Reference Range Interpretation Comments B-Type Natriuretic Peptide (test 682.3 pg/mL 0.0-100.0 H code = 51662-2) [facility] Description: Natriuretic peptide B [Mass/volume] in Serum or [id number] 14:32:00 Test Item Value Reference Range Interpretation Comments B-Type Natriuretic Peptide (test 682.3 pg/mL 0.0-100.0 H code = 07609-3) [facility] Description: Natriuretic peptide B [Mass/volume] in Serum or [id number] 14:32:00 Test Item Value Reference Range Interpretation Comments B-Type Natriuretic Peptide (test 682.3 pg/mL 0.0-100.0 H code = 53958-0) [facility] Description: Natriuretic peptide B [Mass/volume] in Serum or [id number] 14:32:00 Test Item Value Reference Range Interpretation Comments B-Type Natriuretic Peptide (test 682.3 pg/mL 0.0-100.0 H code = 67140-1) [facility] Description: Parathyrin.intact [Mass/volume] in Serum or [id number] 08:48:00 Test Item Value Reference Range Interpretation Comments PTH, Intact (test code = 2731-8) 147 pg/mL 15-65 H [facility] Description: Parathyrin.intact [Mass/volume] in Serum or [id number] 08:48:00 Test Item Value Reference Range Interpretation Comments PTH, Intact (test code = 2731-8) 147 pg/mL 15-65 H [facility] Description: Parathyrin.intact [Mass/volume] in Serum or [id number] 08:48:00 Test Item Value Reference Range Interpretation Comments PTH, Intact (test code = 2731-8) 147 pg/mL 15-65 H [facility] Description: Parathyrin.intact [Mass/volume] in Serum or [id number] 08:48:00 Test Item Value Reference Range Interpretation Comments PTH, Intact (test code = 2731-8) 147 pg/mL 15-65 H [facility] Description: Parathyrin.intact [Mass/volume] in Serum or [id number] 08:48:00 Test Item Value Reference Range Interpretation Comments PTH, Intact (test code = 2731-8) 147 pg/mL 15-65 H [facility] Description: Parathyrin.intact [Mass/volume] in Serum or [id number] 08:48:00 Test Item Value Reference Range Interpretation Comments PTH, Intact (test code = 2731-8) 147 pg/mL 15-65 H Access [facility] Description: Parathyrin.intact [Mass/volume] in Serum or [id number] 08:48:00 Test Item Value Reference Range Interpretation Comments PTH, Intact (test code = 2731-8) 147 pg/mL 15-65 H [facility] Description: Parathyrin.intact [Mass/volume] in Serum or [id number] 08:48:00 Test Item Value Reference Range Interpretation Comments PTH, Intact (test code = 2731-8) 147 pg/mL 15-65 H [facility] Description: Parathyrin.intact [Mass/volume] in Serum or [id number] 08:48:00 Test Item Value Reference Range Interpretation Comments PTH, Intact (test code = 2731-8) 147 pg/mL 15-65 H [facility] Description: Parathyrin.intact [Mass/volume] in Serum or [id number] 08:48:00 Test Item Value Reference Range Interpretation Comments PTH, Intact (test code = 2731-8) 147 pg/mL 15-65 H [facility] Description: Parathyrin.intact [Mass/volume] in Serum or [id number] 08:48:00 Test Item Value Reference Range Interpretation Comments PTH, Intact (test code = 2731-8) 147 pg/mL 15-65 H [facility] Description: Parathyrin.intact [Mass/volume] in Serum or Kcqmtb0933-08-23 08:48:00 Test Item Value Reference Range Interpretation Comments PTH, Intact (test code = 2731-8) 147 pg/mL 15-65 H [facility] Description: Parathyrin.intact [Mass/volume] in Serum or [id number] 08:48:00 Test Item Value Reference Range Interpretation Comments PTH, Intact (test code = 2731-8) 147 pg/mL 15-65 H [facility] Description: Parathyrin.intact [Mass/volume] in Serum or [id number] 08:48:00 Test Item Value Reference Range Interpretation Comments PTH, Intact (test code = 2731-8) 147 pg/mL 15-65 H [facility] Description: Parathyrin.intact [Mass/volume] in Serum or [id number] 08:48:00 Test Item Value Reference Range Interpretation Comments PTH, Intact (test code = 2731-8) 147 pg/mL 15-65 H [facility] Description: Parathyrin.intact [Mass/volume] in Serum or [id number] 08:48:00 Test Item Value Reference Range Interpretation Comments PTH, Intact (test code = 2731-8) 147 pg/mL 15-65 H [facility] Description: Parathyrin.intact [Mass/volume] in Serum or [id number] 08:48:00 Test Item Value Reference Range Interpretation Comments PTH, Intact (test code = 2731-8) 147 pg/mL 15-65 H [facility] Description: Parathyrin.intact [Mass/volume] in Serum or [id number] 08:48:00 Test Item Value Reference Range Interpretation Comments PTH, Intact (test code = 2731-8) 147 pg/mL 15-65 H [facility] Description: Parathyrin.intact [Mass/volume] in Serum or [id number] 08:48:00 Test Item Value Reference Range Interpretation Comments PTH, Intact (test code = 2731-8) 147 pg/mL 15-65 H [facility] Description: Parathyrin.intact [Mass/volume] in Serum or [id number] 08:48:00 Test Item Value Reference Range Interpretation Comments PTH, Intact (test code = 2731-8) 147 pg/mL 15-65 H [facility]: Hemoglobin A1c/Hemoglobin.total in Blood 2020-10-30 05:01:00 Test Item Value Reference Range Interpretation Comments Hemoglobin A1c (test code 8.4 % 4.8-5.6 H = 4548-4) . Prediabetes: 5. 7 - 6.4 Diabetes : >6.4 Glycemic control for adults with diabetes: <7.0

P erformed by:
[facility] ()

[facility]: Hemoglobin A1c/Hemoglobin.total in Blood 2020-10-30 05:01:00 Test Item Value Reference Range Interpretation Comments Hemoglobin A1c (test code 8.4 % 4.8-5.6 H = 4548-4) . Prediabetes: 5. 7 - 6.4 Diabetes : >6.4 Glycemic control for adults with diabetes: <7.0

P erformed by:
[facility] ()

[facility] Description: Hemoglobin A1c/Hemoglobin.total in Blood 2020-10-30 05:01:00 Test Item Value Reference Range Interpretation Comments Hemoglobin A1c (test code 8.4 % 4.8-5.6 H = 4548-4) . Prediabetes: 5. 7 - 6.4 Diabetes : >6.4 Glycemic control for adults with diabetes: <7.0

P erformed by:
[facility] ([place])

[facility] Description: Hemoglobin A1c/Hemoglobin.total in Blood 2020-10-30 05:01:00 Test Item Value Reference Range Interpretation Comments Hemoglobin A1c (test code 8.4 % 4.8-5.6 H = 4548-4) . Prediabetes: 5. 7 - 6.4 Diabetes : >6.4 Glycemic control for adults with diabetes: <7.0

P erformed by:
[facility] ([place])

[facility] Description: Hemoglobin A1c/Hemoglobin.total in Blood 2020-10-30 05:01:00 Test Item Value Reference Range Interpretation Comments Hemoglobin A1c (test code 8.4 % 4.8-5.6 H = 4548-4) . Prediabetes: 5. 7 - 6.4 Diabetes : >6.4 Glycemic control for adults with diabetes: <7.0

P erformed by:
[facility] ()

[facility] Description: Hemoglobin A1c/Hemoglobin.total in Blood 2020-10-30 05:01:00 Test Item Value Reference Range Interpretation Comments Hemoglobin A1c (test code 8.4 % 4.8-5.6 H = 4548-4) . Prediabetes: 5. 7 - 6.4 Diabetes : >6.4 Glycemic control for adults with diabetes: <7.0

P erformed by:
[facility] ()

[facility] Description: Hemoglobin A1c/Hemoglobin.total in Blood 2020-10-30 05:01:00 Test Item Value Reference Range Interpretation Comments Hemoglobin A1c (test code 8.4 % 4.8-5.6 H = 4548-4) . Prediabetes: 5. 7 - 6.4 Diabetes : >6.4 Glycemic control for adults with diabetes: <7.0

P erformed by:
[facility] [place] ()

[facility] Description: Hemoglobin A1c/Hemoglobin.total in Blood 2020-10-30 05:01:00 Test Item Value Reference Range Interpretation Comments Hemoglobin A1c (test code 8.4 % 4.8-5.6 H = 4548-4) . Prediabetes: 5. 7 - 6.4 Diabetes : >6.4 Glycemic control for adults with diabetes: <7.0

P erformed by:
[facility] [place] ()

[facility] Description: Hemoglobin A1c/Hemoglobin.total in [...]

P erformed by:
[facility] ([place])

[facility] Description: Hemoglobin A1c/Hemoglobin.total in Blood 2020-10-30 05:01:00 Test Item Value Reference Range Interpretation Comments Hemoglobin A1c (test code 8.4 % 4.8-5.6 H = 4548-4) . Prediabetes: 5. 7 - 6.4 Diabetes : >6.4 Glycemic control for adults with diabetes: <7.0

P erformed by:
[facility] ()

[facility] Description: Hemoglobin A1c/Hemoglobin.total in Blood 2020-10-30 05:01:00 Test Item Value Reference Range Interpretation Comments Hemoglobin A1c (test code 8.4 % 4.8-5.6 H = 4548-4) . Prediabetes: 5. 7 - 6.4 Diabetes : >6.4 Glycemic control for adults with diabetes: <7.0

P erformed by:
[facility] ()

[facility] Description: Hemoglobin A1c/Hemoglobin.total in Blood 2020-10-30 05:01:00 Test Item Value Reference Range Interpretation Comments Hemoglobin A1c (test code 8.4 % 4.8-5.6 H = 4548-4) . Prediabetes: 5. 7 - 6.4 Diabetes : >6.4 Glycemic control for adults with diabetes: <7.0

P erformed by:
[facility] [place] ()

[facility] Description: Hemoglobin A1c/Hemoglobin.total in Blood 2020-10-30 05:01:00 Test Item Value Reference Range Interpretation Comments Hemoglobin A1c (test code 8.4 % 4.8-5.6 H = 4548-4) . Prediabetes: 5. 7 - 6.4 Diabetes : >6.4 Glycemic control for adults with diabetes: <7.0

P erformed by:
[facility] ()

[facility] Description: Hemoglobin A1c/Hemoglobin.total in Blood 2020-10-30 05:01:00 Test Item Value Reference Range Interpretation Comments Hemoglobin A1c (test code 8.4 % 4.8-5.6 H = 4548-4) . Prediabetes: 5. 7 - 6.4 Diabetes : >6.4 Glycemic control for adults with diabetes: <7.0

P erformed by:
[facility] ()

[facility] Description: Hemoglobin A1c/Hemoglobin.total in Blood 2020-10-30 05:01:00 Test Item Value Reference Range Interpretation Comments Hemoglobin A1c (test code 8.4 % 4.8-5.6 H = 4548-4) . Prediabetes: 5. 7 - 6.4 Diabetes : >6.4 Glycemic control for adults with diabetes: <7.0

P erformed by:
[facility] ()

[facility] Description: Microscopic [id number] 04:44:00 Test Item Value Reference Range Interpretation Comments WBC (test code = 5821-4) None seen 0-5 RBC (test code = 17312-3) None seen 0-2 Epithelial Cells (non renal) (test None seen 0-10 code = 5787-7) Epithelial Cells (renal) (test code = 27686-3) Casts (test code = 95722-7) None seen None seen Cast Type (test code = 50933-9) Crystals (test code = 5783-6) Crystal Type (test code = 5782-8) Mucus Threads (test code = 8247-9) Bacteria (test code = 5769-5) None seen None seen/Few Yeast (test code = 5822-2) Trichomonas (test code = 5813-1) Comment (test code = 61789-8) [facility] Description: Microscopic Hcxxpmeygpj0846-84-43 04:44:00 Test Item Value Reference Range Interpretation Comments WBC (test code = 5821-4) None seen 0-5 RBC (test code = 19110-6) None seen 0-2 Epithelial Cells (non renal) (test None seen 0-10 code = 5787-7) Epithelial Cells (renal) (test code = 15901-5) Casts (test code = 69676-1) None seen None seen Cast Type (test code = 58559-2) Crystals (test code = 5783-6) Crystal Type (test code = 5782-8) Mucus Threads (test code = 8247-9) Bacteria (test code = 5769-5) None seen None seen/Few Yeast (test code = 5822-2) Trichomonas (test code = 5813-1) Comment (test code = 38556-5) [facility] Description: Microscopic Lqmptlktyjx8682-89-00 04:44:00 Test Item Value Reference Range Interpretation Comments WBC (test code = 5821-4) None seen 0-5 RBC (test code = 26090-5) None seen 0-2 Epithelial Cells (non renal) (test None seen 0-10 code = 5787-7) Epithelial Cells (renal) (test code = 50992-8) Casts (test code = 86214-1) None seen None seen Cast Type (test code = 06158-5) Crystals (test code = 5783-6) Crystal Type (test code = 5782-8) Mucus Threads (test code = 8247-9) Bacteria (test code = 5769-5) None seen None seen/Few Yeast (test code = 5822-2) Trichomonas (test code = 5813-1) Comment (test code = 01857-2) [facility] Description: Microscopic Munvvvtyrtz0127-78-60 04:44:00 Test Item Value Reference Range Interpretation Comments WBC (test code = 5821-4) None seen 0-5 RBC (test code = 48746-7) None seen 0-2 Epithelial Cells (non renal) (test None seen 0-10 code = 5787-7) Epithelial Cells (renal) (test code = 02555-1) Casts (test code = 06305-0) None seen None seen Cast Type (test code = 43365-1) Crystals (test code = 5783-6) Crystal Type (test code = 5782-8) Mucus Threads (test code = 8247-9) Bacteria (test code = 5769-5) None seen None seen/Few Yeast (test code = 5822-2) Trichomonas (test code = 5813-1) Comment (test code = 78725-1) [facility] Description: Microscopic Qdsduxnskiq2717-39-35 04:44:00 Test Item Value Reference Range Interpretation Comments WBC (test code = 5821-4) None seen 0-5 RBC (test code = 51377-4) None seen 0-2 Epithelial Cells (non renal) (test None seen 0-10 code = 5787-7) Epithelial Cells (renal) (test code = 88046-4) Casts (test code = 79324-4) None seen None seen Cast Type (test code = 68309-9) Crystals (test code = 5783-6) Crystal Type (test code = 5782-8) Mucus Threads (test code = 8247-9) Bacteria (test code = 5769-5) None seen None seen/Few Yeast (test code = 5822-2) Trichomonas (test code = 5813-1) Comment (test code = 27793-7) [facility] Description: Microscopic Fizxtwvwljh1249-23-74 04:44:00 Test Item Value Reference Range Interpretation Comments WBC (test code = 5821-4) None seen 0-5 RBC (test code = 55969-3) None seen 0-2 Epithelial Cells (non renal) (test None seen 0-10 code = 5787-7) Epithelial Cells (renal) (test code = 46557-1) Casts (test code = 68653-3) None seen None seen Cast Type (test code = 88505-9) Crystals (test code = 5783-6) Crystal Type (test code = 5782-8) Mucus Threads (test code = 8247-9) Bacteria (test code = 5769-5) None seen None seen/Few Yeast (test code = 5822-2) Trichomonas (test code = 5813-1) Comment (test code = 33024-3) [facility] Description: Microscopic Cepigbtloma4014-71-16 04:44:00 Test Item Value Reference Range Interpretation Comments WBC (test code = 5821-4) None seen 0-5 RBC (test code = 23946-3) None seen 0-2 Epithelial Cells (non renal) (test None seen 0-10 code = 5787-7) Epithelial Cells (renal) (test code = 78486-2) Casts (test code = 75471-5) None seen None seen Cast Type (test code = 48239-7) Crystals (test code = 5783-6) Crystal Type (test code = 5782-8) Mucus Threads (test code = 8247-9) Bacteria (test code = 5769-5) None seen None seen/Few Yeast (test code = 5822-2) Trichomonas (test code = 5813-1) Comment (test code = 38373-1) [facility] Description: Microscopic Vftceqphuyc6857-46-52 04:44:00 Test Item Value Reference Range Interpretation Comments WBC (test code = 5821-4) None seen 0-5 RBC (test code = 29057-7) None seen 0-2 Epithelial Cells (non renal) (test None seen 0-10 code = 5787-7) Epithelial Cells (renal) (test code = 32211-8) Casts (test code = 48023-4) None seen None seen Cast Type (test code = 56933-9) Crystals (test code = 5783-6) Crystal Type (test code = 5782-8) Mucus Threads (test code = 8247-9) Bacteria (test code = 5769-5) None seen None seen/Few Yeast (test code = 5822-2) Trichomonas (test code = 5813-1) Comment (test code = 40839-1) [facility] Description: Microscopic Hzzifmcqxor8279-41-78 04:44:00 Test Item Value Reference Range Interpretation Comments WBC (test code = 5821-4) None seen 0-5 RBC (test code = 13752-1) None seen 0-2 Epithelial Cells (non renal) (test None seen 0-10 code = 5787-7) Epithelial Cells (renal) (test code = 79640-9) Casts (test code = 71247-0) None seen None seen Cast Type (test code = 27538-7) Crystals (test code = 5783-6) Crystal Type (test code = 5782-8) Mucus Threads (test code = 8247-9) Bacteria (test code = 5769-5) None seen None seen/Few Yeast (test code = 5822-2) Trichomonas (test code = 5813-1) Comment (test code = 99888-7) [facility] Description: Microscopic Vnqmwmwxeft3111-07-52 04:44:00 Test Item Value Reference Range Interpretation Comments WBC (test code = 5821-4) None seen 0-5 RBC (test code = 36638-8) None seen 0-2 Epithelial Cells (non renal) (test None seen 0-10 code = 5787-7) Epithelial Cells (renal) (test code = 88203-3) Casts (test code = 07717-5) None seen None seen Cast Type (test code = 32671-6) Crystals (test code = 5783-6) Crystal Type (test code = 5782-8) Mucus Threads (test code = 8247-9) Bacteria (test code = 5769-5) None seen None seen/Few Yeast (test code = 5822-2) Trichomonas (test code = 5813-1) Comment (test code = 53982-3) [facility] Description: Microscopic Yxbbopeedet8503-30-15 04:44:00 Test Item Value Reference Range Interpretation Comments WBC (test code = 5821-4) None seen 0-5 RBC (test code = 39704-0) None seen 0-2 Epithelial Cells (non renal) (test None seen 0-10 code = 5787-7) Epithelial Cells (renal) (test code = 02842-9) Casts (test code = 34297-2) None seen None seen Cast Type (test code = 29034-9) Crystals (test code = 5783-6) Crystal Type (test code = 5782-8) Mucus Threads (test code = 8247-9) Bacteria (test code = 5769-5) None seen None seen/Few Yeast (test code = 5822-2) Trichomonas (test code = 5813-1) Comment (test code = 84256-9) [facility] Description: Microscopic Fwwlvpgkqux5253-70-95 04:44:00 Test Item Value Reference Range Interpretation Comments WBC (test code = 5821-4) None seen 0-5 RBC (test code = 72547-4) None seen 0-2 Epithelial Cells (non renal) (test None seen 0-10 code = 5787-7) Epithelial Cells (renal) (test code = 09381-1) Casts (test code = 35875-1) None seen None seen Cast Type (test code = 99958-6) Crystals (test code = 5783-6) Crystal Type (test code = 5782-8) Mucus Threads (test code = 8247-9) Bacteria (test code = 5769-5) None seen None seen/Few Yeast (test code = 5822-2) Trichomonas (test code = 5813-1) Comment (test code = 86666-9) [facility] Description: Microscopic Bvtceedgqmq9180-69-59 04:44:00 Test Item Value Reference Range Interpretation Comments WBC (test code = 5821-4) None seen 0-5 RBC (test code = 79411-5) None seen 0-2 Epithelial Cells (non renal) (test None seen 0-10 code = 5787-7) Epithelial Cells (renal) (test code = 03511-3) Casts (test code = 71688-5) None seen None seen Cast Type (test code = 13272-1) Crystals (test code = 5783-6) Crystal Type (test code = 5782-8) Mucus Threads (test code = 8247-9) Bacteria (test code = 5769-5) None seen None seen/Few Yeast (test code = 5822-2) Trichomonas (test code = 5813-1) Comment (test code = 77540-0) [facility] Description: Microscopic Bdsxzrybfwc9175-38-85 04:44:00 Test Item Value Reference Range Interpretation Comments WBC (test code = 5821-4) None seen 0-5 RBC (test code = 07773-6) None seen 0-2 Epithelial Cells (non renal) (test None seen 0-10 code = 5787-7) Epithelial Cells (renal) (test code = 67481-3) Casts (test code = 05560-8) None seen None seen Cast Type (test code = 73654-1) Crystals (test code = 5783-6) Crystal Type (test code = 5782-8) Mucus Threads (test code = 8247-9) Bacteria (test code = 5769-5) None seen None seen/Few Yeast (test code = 5822-2) Trichomonas (test code = 5813-1) Comment (test code = 27976-1) [facility] Description: Microscopic Bwguolbzivi8547-27-34 04:44:00 Test Item Value Reference Range Interpretation Comments WBC (test code = 5821-4) None seen 0-5 RBC (test code = 26493-2) None seen 0-2 Epithelial Cells (non renal) (test None seen 0-10 code = 5787-7) Epithelial Cells (renal) (test code = 90306-5) Casts (test code = 87415-1) None seen None seen Cast Type (test code = 52806-7) Crystals (test code = 5783-6) Crystal Type (test code = 5782-8) Mucus Threads (test code = 8247-9) Bacteria (test code = 5769-5) None seen None seen/Few Yeast (test code = 5822-2) Trichomonas (test code = 5813-1) Comment (test code = 36271-0) [facility] Description: Microscopic Ihcsqspvhmo5630-45-87 04:44:00 Test Item Value Reference Range Interpretation Comments WBC (test code = 5821-4) None seen 0-5 RBC (test code = 82211-8) None seen 0-2 Epithelial Cells (non renal) (test None seen 0-10 code = 5787-7) Epithelial Cells (renal) (test code = 82781-0) Casts (test code = 16995-5) None seen None seen Cast Type (test code = 74983-7) Crystals (test code = 5783-6) Crystal Type (test code = 5782-8) Mucus Threads (test code = 8247-9) Bacteria (test code = 5769-5) None seen None seen/Few Yeast (test code = 5822-2) Trichomonas (test code = 5813-1) Comment (test code = 73810-3) [facility]: [facility]scopic Bnfbofmkcsl8397-53-88 04:44:00 Test Item Value Reference Range Interpretation Comments WBC (test code = 5821-4) None seen 0-5 RBC (test code = 49740-8) None seen 0-2 Epithelial Cells (non renal) (test None seen 0-10 code = 5787-7) Epithelial Cells (renal) (test code = 34646-3) Casts (test code = 00078-0) None seen None seen Cast Type (test code = 90554-4) Crystals (test code = 5783-6) Crystal Type (test code = 5782-8) Mucus Threads (test code = 8247-9) Bacteria (test code = 5769-5) None seen None seen/Few Yeast (test code = 5822-2) Trichomonas (test code = 5813-1) Comment (test code = 42145-9) [facility] Description: Microscopic Hpbwsytcnoy9261-87-93 04:44:00 Test Item Value Reference Range Interpretation Comments WBC (test code = 5821-4) None seen 0-5 RBC (test code = 98434-7) None seen 0-2 Epithelial Cells (non renal) (test None seen 0-10 code = 5787-7) Epithelial Cells (renal) (test code = 34256-3) Casts (test code = 76096-2) None seen None seen Cast Type (test code = 89120-4) Crystals (test code = 5783-6) Crystal Type (test code = 5782-8) Mucus Threads (test code = 8247-9) Bacteria (test code = 5769-5) None seen None seen/Few Yeast (test code = 5822-2) Trichomonas (test code = 5813-1) Comment (test code = 98210-7) [facility] Description: Microscopic Jtrvuqjxfra3605-27-00 04:44:00 Test Item Value Reference Range Interpretation Comments WBC (test code = 5821-4) None seen 0-5 RBC (test code = 12233-8) None seen 0-2 Epithelial Cells (non renal) (test None seen 0-10 code = 5787-7) Epithelial Cells (renal) (test code = 15256-5) Casts (test code = 77216-7) None seen None seen Cast Type (test code = 91090-4) Crystals (test code = 5783-6) Crystal Type (test code = 5782-8) Mucus Threads (test code = 8247-9) Bacteria (test code = 5769-5) None seen None seen/Few Yeast (test code = 5822-2) Trichomonas (test code = 5813-1) Comment (test code = 87358-1) [facility] Description: Microscopic Oowhpihhyqg6512-88-66 04:44:00 Test Item Value Reference Range Interpretation Comments WBC (test code = 5821-4) None seen 0-5 RBC (test code = 46890-8) None seen 0-2 Epithelial Cells (non renal) (test None seen 0-10 code = 5787-7) Epithelial Cells (renal) (test code = 59932-3) Casts (test code = 57233-5) None seen None seen Cast Type (test code = 43898-6) Crystals (test code = 5783-6) Crystal Type (test code = 5782-8) Mucus Threads (test code = 8247-9) Bacteria (test code = 5769-5) None seen None seen/Few Yeast (test code = 5822-2) Trichomonas (test code = 5813-1) Comment (test code = 78937-6) [facility] Description: Urinalysis, Zqkfwaxg2990-05-42 04:43:00 Test Item Value Reference Range Interpretation Comments Specific Ashley (test 1.012 1.005-1.030 code = 2965-2) pH (test code = 5.5 5.0-7.5 5803-2) Urine-Color (test code Yellow Yellow = 5778-6) Appearance (test code Clear Clear = 5767-9) WBC Esterase (test Negative Negative code = 5799-2) Protein (test code = 4+ Negative/Trace A 58523-0) Glucose (test code = Trace Negative A 2349-9) Ketones (test code = Negative Negative 2514-8) Occult Blood (test Trace Negative A code = 5794-3) Bilirubin (test code = Negative Negative 5770-3) Urobilinogen,Semi-Qn 0.2 mg/dL 0.2-1.0 (test code = 51134-7) Nitrite, Urine (test Negative Negative code = 5802-4) Microscopic See below: Microscopic was Examination (test code indic ated and was = 41139-0) performed.

P erformed by:
[facility] ()

[facility] Description: Urinalysis, Rmwbvnkr1251-53-92 04:43:00 Test Item Value Reference Range Interpretation Comments Specific Ashley (test 1.012 1.005-1.030 code = 2965-2) pH (test code = 5.5 5.0-7.5 5803-2) Urine-Color (test code Yellow Yellow = 5778-6) Appearance (test code Clear Clear = 5767-9) WBC Esterase (test Negative Negative code = 5799-2) Protein (test code = 4+ Negative/Trace A 22429-7) Glucose (test code = Trace Negative A 2349-9) Ketones (test code = Negative Negative 2514-8) Occult Blood (test Trace Negative A code = 5794-3) Bilirubin (test code = Negative Negative 5770-3) Urobilinogen,Semi-Qn 0.2 mg/dL 0.2-1.0 (test code = 39456-4) Nitrite, Urine (test Negative Negative code = 5802-4) Microscopic See below: Microscopic was Examination (test code indic ated and was = 63346-3) performed.

P erformed by:
[facility] ()

[facility] Description: Urinalysis, Auicgobc7374-05-11 04:43:00 Test Item Value Reference Range Interpretation Comments Specific Ashley (test 1.012 1.005-1.030 code = 2965-2) pH (test code = 5.5 5.0-7.5 5803-2) Urine-Color (test code Yellow Yellow = 5778-6) Appearance (test code Clear Clear = 5767-9) WBC Esterase (test Negative Negative code = 5799-2) Protein (test code = 4+ Negative/Trace A 64956-6) Glucose (test code = Trace Negative A 2349-9) Ketones (test code = Negative Negative 2514-8) Occult Blood (test Trace Negative A code = 5794-3) Bilirubin (test code = Negative Negative 5770-3) Urobilinogen,Semi-Qn 0.2 mg/dL 0.2-1.0 (test code = 07120-6) Nitrite, Urine (test Negative Negative code = 5802-4) Microscopic See below: Microscopic was Examination (test code indic ated and was = 31292-3) performed.

P erformed by:
[facility] [place] ()

[facility] Description: Urinalysis, Umbogcdq6715-63-97 04:43:00 Test Item Value Reference Range Interpretation Comments Specific Ashley (test 1.012 1.005-1.030 code = 2965-2) pH (test code = 5.5 5.0-7.5 5803-2) Urine-Color (test code Yellow Yellow = 5778-6) Appearance (test code Clear Clear = 5767-9) WBC Esterase (test Negative Negative code = 5799-2) Protein (test code = 4+ Negative/Trace A 18951-6) Glucose (test code = Trace Negative A 2349-9) Ketones (test code = Negative Negative 2514-8) Occult Blood (test Trace Negative A code = 5794-3) Bilirubin (test code = Negative Negative 5770-3) Urobilinogen,Semi-Qn 0.2 mg/dL 0.2-1.0 (test code = 95412-5) Nitrite, Urine (test Negative Negative code = 5802-4) Microscopic See below: Microscopic was Examination (test code indic ated and was = 69506-9) performed.

P erformed by:
[facility] [place] ()

[facility] Description: Urinalysis, [id number] 04:43:00 Test Item Value Reference Range Interpretation Comments Specific Ashley (test 1.012 1.005-1.030 code = 2965-2) pH (test code = 5.5 5.0-7.5 5803-2) Urine-Color (test code Yellow Yellow = 5778-6) Appearance (test code Clear Clear = 5767-9) WBC Esterase (test Negative Negative code = 5799-2) Protein (test code = 4+ Negative/Trace A 12704-6) Glucose (test code = Trace Negative A 2349-9) Ketones (test code = Negative Negative 2514-8) Occult Blood (test Trace Negative A code = 5794-3) Bilirubin (test code = Negative Negative 5770-3) Urobilinogen,Semi-Qn 0.2 mg/dL 0.2-1.0 (test code = 08495-5) Nitrite, Urine (test Negative Negative code = 5802-4) Microscopic See below: Microscopic was Examination (test code indic ated and was = 35376-7) performed.

P erformed by:
[facility] ()

[facility] Description: Urinalysis, [id number] 04:43:00 Test Item Value Reference Range Interpretation Comments Specific Ashley (test 1.012 1.005-1.030 code = 2965-2) pH (test code = 5.5 5.0-7.5 5803-2) Urine-Color (test code Yellow Yellow = 5778-6) Appearance (test code Clear Clear = 5767-9) WBC Esterase (test Negative Negative code = 5799-2) Protein (test code = 4+ Negative/Trace A 02983-1) Glucose (test code = Trace Negative A 2349-9) Ketones (test code = Negative Negative 2514-8) Occult Blood (test Trace Negative A code = 5794-3) Bilirubin (test code = Negative Negative 5770-3) Urobilinogen,Semi-Qn 0.2 mg/dL 0.2-1.0 (test code = 39176-1) Nitrite, Urine (test Negative Negative code = 5802-4) Microscopic See below: Microscopic was Examination (test code indic ated and was = 08856-2) performed.

P erformed by:
[facility] [place] ()

[facility] Description: Urinalysis, [id number] 04:43:00 Test Item Value Reference Range Interpretation Comments Specific Ashley (test 1.012 1.005-1.030 code = 2965-2) pH (test code = 5.5 5.0-7.5 5803-2) Urine-Color (test code Yellow Yellow = 5778-6) Appearance (test code Clear Clear = 5767-9) WBC Esterase (test Negative Negative code = 5799-2) Protein (test code = 4+ Negative/Trace A 15477-8) Glucose (test code = Trace Negative A 2349-9) Ketones (test code = Negative Negative 2514-8) Occult Blood (test Trace Negative A code = 5794-3) Bilirubin (test code = Negative Negative 5770-3) Urobilinogen,Semi-Qn 0.2 mg/dL 0.2-1.0 (test code = 01941-2) Nitrite, Urine (test Negative Negative code = 5802-4) Microscopic See below: Microscopic was Examination (test code indic ated and was = 82807-5) performed.

P erformed by:
[facility] [place] ()

[facility] Description: Urinalysis, [id number] 04:43:00 Test Item Value Reference Range Interpretation Comments Specific Ashley (test 1.012 1.005-1.030 code = 2965-2) pH (test code = 5.5 5.0-7.5 5803-2) Urine-Color (test code Yellow Yellow = 5778-6) Appearance (test code Clear Clear = 5767-9) WBC Esterase (test Negative Negative code = 5799-2) Protein (test code = 4+ Negative/Trace A 05800-9) Glucose (test code = Trace Negative A 2349-9) Ketones (test code = Negative Negative 2514-8) Occult Blood (test Trace Negative A code = 5794-3) Bilirubin (test code = Negative Negative 5770-3) Urobilinogen,Semi-Qn 0.2 mg/dL 0.2-1.0 (test code = 39333-3) Nitrite, Urine (test Negative Negative code = 5802-4) Microscopic See below: Microscopic was Examination (test code indic ated and was = 95546-3) performed.

P erformed by:
[facility] [place] ()

[facility] Description: Urinalysis, [id number] 04:43:00 Test Item Value Reference Range Interpretation Comments Specific Ashley (test 1.012 1.005-1.030 code = 2965-2) pH (test code = 5.5 5.0-7.5 5803-2) Urine-Color (test code Yellow Yellow = 5778-6) Appearance (test code Clear Clear = 5767-9) WBC Esterase (test Negative Negative code = 5799-2) Protein (test code = 4+ Negative/Trace A 34920-8) Glucose (test code = Trace Negative A 2349-9) Ketones (test code = Negative Negative 2514-8) Occult Blood (test Trace Negative A code = 5794-3) Bilirubin (test code = Negative Negative 5770-3) Urobilinogen,Semi-Qn 0.2 mg/dL 0.2-1.0 (test code = 37486-2) Nitrite, Urine (test Negative Negative code = 5802-4) Microscopic See below: Microscopic was Examination (test code indic ated and was = 95745-8) performed.

P erformed by:
[facility] [place] ()

[facility] Description: Urinalysis, [id number] 04:43:00 Test Item Value Reference Range Interpretation Comments Specific Ashley (test 1.012 1.005-1.030 code = 2965-2) pH (test code = 5.5 5.0-7.5 5803-2) Urine-Color (test code Yellow Yellow = 5778-6) Appearance (test code Clear Clear = 5767-9) WBC Esterase (test Negative Negative code = 5799-2) Protein (test code = 4+ Negative/Trace A 10796-9) Glucose (test code = Trace Negative A 2349-9) Ketones (test code = Negative Negative 2514-8) Occult Blood (test Trace Negative A code = 5794-3) Bilirubin (test code = Negative Negative 5770-3) Urobilinogen,Semi-Qn 0.2 mg/dL 0.2-1.0 (test code = 17775-3) Nitrite, Urine (test Negative Negative code = 5802-4) Microscopic See below: Microscopic was Examination (test code indic atecatrachito and was = 31258-7) performed.

P erformed by:
[facility] [place] ()

[facility] Description: Urinalysis, [id number] 04:43:00 Test Item Value Reference Range Interpretation Comments Specific Ashley (test 1.012 1.005-1.030 code = 2965-2) pH (test code = 5.5 5.0-7.5 5803-2) Urine-Color (test code Yellow Yellow = 5778-6) Appearance (test code Clear Clear = 5767-9) WBC Esterase (test Negative Negative code = 5799-2) Protein (test code = 4+ Negative/Trace A 35946-2) Glucose (test code = Trace Negative A 2349-9) Ketones (test code = Negative Negative 2514-8) Occult Blood (test Trace Negative A code = 5794-3) Bilirubin (test code = Negative Negative 5770-3) Urobilinogen,Semi-Qn 0.2 mg/dL 0.2-1.0 (test code = 18467-4) Nitrite, Urine (test Negative Negative code = 5802-4) Microscopic See below: Microscopic was Examination (test code indic atecatrachito and was = 00148-8) performed.

P erformed by:
[facility] [place] ()

[facility] Description: Urinalysis, [id number] 04:43:00 Test Item Value Reference Range Interpretation Comments Specific Ashley (test 1.012 1.005-1.030 code = 2965-2) pH (test code = 5.5 5.0-7.5 5803-2) Urine-Color (test code Yellow Yellow = 5778-6) Appearance (test code Clear Clear = 5767-9) WBC Esterase (test Negative Negative code = 5799-2) Protein (test code = 4+ Negative/Trace A 71545-7) Glucose (test code = Trace Negative A 2349-9) Ketones (test code = Negative Negative 2514-8) Occult Blood (test Trace Negative A code = 5794-3) Bilirubin (test code = Negative Negative 5770-3) Urobilinogen,Semi-Qn 0.2 mg/dL 0.2-1.0 (test code = 09516-5) Nitrite, Urine (test Negative Negative code = 5802-4) Microscopic See below: Microscopic was Examination (test code indic ated and was = 57211-1) performed.

P erformed by:
[facility] [place] ()

[facility] Description: Urinalysis, [id number] 04:43:00 Test Item Value Reference Range Interpretation Comments Specific Ashley (test 1.012 1.005-1.030 code = 2965-2) pH (test code = 5.5 5.0-7.5 5803-2) Urine-Color (test code Yellow Yellow = 5778-6) Appearance (test code Clear Clear = 5767-9) WBC Esterase (test Negative Negative code = 5799-2) Protein (test code = 4+ Negative/Trace A 34363-6) Glucose (test code = Trace Negative A 2349-9) Ketones (test code = Negative Negative 2514-8) Occult Blood (test Trace Negative A code = 5794-3) Bilirubin (test code = Negative Negative 5770-3) Urobilinogen,Semi-Qn 0.2 mg/dL 0.2-1.0 (test code = 72319-5) Nitrite, Urine (test Negative Negative code = 5802-4) Microscopic See below: Microscopic was Examination (test code indic ated and was = 20415-9) performed.

P erformed by:
[facility] [place] ()

[facility] Description: Urinalysis, [id number] 04:43:00 Test Item Value Reference Range Interpretation Comments Specific Ashley (test 1.012 1.005-1.030 code = 2965-2) pH (test code = 5.5 5.0-7.5 5803-2) Urine-Color (test code Yellow Yellow = 5778-6) Appearance (test code Clear Clear = 5767-9) WBC Esterase (test Negative Negative code = 5799-2) Protein (test code = 4+ Negative/Trace A 15893-2) Glucose (test code = Trace Negative A 2349-9) Ketones (test code = Negative Negative 2514-8) Occult Blood (test Trace Negative A code = 5794-3) Bilirubin (test code = Negative Negative 5770-3) Urobilinogen,Semi-Qn 0.2 mg/dL 0.2-1.0 (test code = 67650-1) Nitrite, Urine (test Negative Negative code = 5802-4) Microscopic See below: Microscopic was Examination (test code indic ated and was = 60972-7) performed.

P erformed by:
[facility] [place] ()

[facility] Description: Urinalysis, [id number] 04:43:00 Test Item Value Reference Range Interpretation Comments Specific Ashley (test 1.012 1.005-1.030 code = 2965-2) pH (test code = 5.5 5.0-7.5 5803-2) Urine-Color (test code Yellow Yellow = 5778-6) Appearance (test code Clear Clear = 5767-9) WBC Esterase (test Negative Negative code = 5799-2) Protein (test code = 4+ Negative/Trace A 14916-2) Glucose (test code = Trace Negative A 2349-9) Ketones (test code = Negative Negative 2514-8) Occult Blood (test Trace Negative A code = 5794-3) Bilirubin (test code = Negative Negative 5770-3) Urobilinogen,Semi-Qn 0.2 mg/dL 0.2-1.0 (test code = 38846-6) Nitrite, Urine (test Negative Negative code = 5802-4) Microscopic See below: Microscopic was Examination (test code indic ated and was = 15041-1) performed.

P erformed by:
[employer] ()

[facility] Description: Urinalysis, [id number] 04:43:00 Test Item Value Reference Range Interpretation Comments Specific Ashley (test 1.012 1.005-1.030 code = 2965-2) pH (test code = 5.5 5.0-7.5 5803-2) Urine-Color (test code Yellow Yellow = 5778-6) Appearance (test code Clear Clear = 5767-9) WBC Esterase (test Negative Negative code = 5799-2) Protein (test code = 4+ Negative/Trace A 57449-4) Glucose (test code = Trace Negative A 2349-9) Ketones (test code = Negative Negative 2514-8) Occult Blood (test Trace Negative A code = 5794-3) Bilirubin (test code = Negative Negative 5770-3) Urobilinogen,Semi-Qn 0.2 mg/dL 0.2-1.0 (test code = 43097-0) Nitrite, Urine (test Negative Negative code = 5802-4) Microscopic See below: Microscopic was Examination (test code indic ated and was = 59044-0) performed.

P erformed by:
[facility] [place] ()

[facility] Description: Urinalysis, [id number] 04:43:00 Test Item Value Reference Range Interpretation Comments Specific Ashley (test 1.012 1.005-1.030 code = 2965-2) pH (test code = 5.5 5.0-7.5 5803-2) Urine-Color (test code Yellow Yellow = 5778-6) Appearance (test code Clear Clear = 5767-9) WBC Esterase (test Negative Negative code = 5799-2) Protein (test code = 4+ Negative/Trace A 35442-0) Glucose (test code = Trace Negative A 2349-9) Ketones (test code = Negative Negative 2514-8) Occult Blood (test Trace Negative A code = 5794-3) Bilirubin (test code = Negative Negative 5770-3) Urobilinogen,Semi-Qn 0.2 mg/dL 0.2-1.0 (test code = 83153-2) Nitrite, Urine (test Negative Negative code = 5802-4) Microscopic See below: Microscopic was Examination (test code indic ated and was = 33277-5) performed.

P erformed by:
[facility] [place] ()

[facility] Description: Urinalysis, [id number] 04:43:00 Test Item Value Reference Range Interpretation Comments Specific Ashley (test 1.012 1.005-1.030 code = 2965-2) pH (test code = 5.5 5.0-7.5 5803-2) Urine-Color (test code Yellow Yellow = 5778-6) Appearance (test code Clear Clear = 5767-9) WBC Esterase (test Negative Negative code = 5799-2) Protein (test code = 4+ Negative/Trace A 97748-3) Glucose (test code = Trace Negative A 2349-9) Ketones (test code = Negative Negative 2514-8) Occult Blood (test Trace Negative A code = 5794-3) Bilirubin (test code = Negative Negative 5770-3) Urobilinogen,Semi-Qn 0.2 mg/dL 0.2-1.0 (test code = 47655-0) Nitrite, Urine (test Negative Negative code = 5802-4) Microscopic See below: Microscopic was Examination (test code indic ated and was = 68916-2) performed.

P erformed by:
[facility] [place] ()

[facility] Description: Urinalysis, [id number] 04:43:00 Test Item Value Reference Range Interpretation Comments Specific Ashley (test 1.012 1.005-1.030 code = 2965-2) pH (test code = 5.5 5.0-7.5 5803-2) Urine-Color (test code Yellow Yellow = 5778-6) Appearance (test code Clear Clear = 5767-9) WBC Esterase (test Negative Negative code = 5799-2) Protein (test code = 4+ Negative/Trace A 10983-0) Glucose (test code = Trace Negative A 2349-9) Ketones (test code = Negative Negative 2514-8) Occult Blood (test Trace Negative A code = 5794-3) Bilirubin (test code = Negative Negative 5770-3) Urobilinogen,Semi-Qn 0.2 mg/dL 0.2-1.0 (test code = 76827-4) Nitrite, Urine (test Negative Negative code = 5802-4) Microscopic See below: Microscopic was Examination (test code indic ated and was = 20345-6) performed.

P erformed by:
[facility] [place] ()

[facility] Description: Urinalysis, [id number] 04:43:00 Test Item Value Reference Range Interpretation Comments Specific Ashley (test 1.012 1.005-1.030 code = 2965-2) pH (test code = 5.5 5.0-7.5 5803-2) Urine-Color (test code Yellow Yellow = 5778-6) Appearance (test code Clear Clear = 5767-9) WBC Esterase (test Negative Negative code = 5799-2) Protein (test code = 4+ Negative/Trace A 01713-4) Glucose (test code = Trace Negative A 2349-9) Ketones (test code = Negative Negative 2514-8) Occult Blood (test Trace Negative A code = 5794-3) Bilirubin (test code = Negative Negative 5770-3) Urobilinogen,Semi-Qn 0.2 mg/dL 0.2-1.0 (test code = 09493-3) Nitrite, Urine (test Negative Negative code = 5802-4) Microscopic See below: Microscopic was Examination (test code indic ated and was = 75260-2) performed.

P erformed by:
[facility] [place] ()

[facility] Description: Urinalysis, [id number] 04:43:00 [facility] Description: Urinalysis, Complete 2020-10-30 04:43:00[facility]sc[facility] Description: Urinalysis, [id number] 04:43:00[facility]sc[facility] Description: Urinalysis, [id number] 04:43:00Microscopic Examination [facility] Description: Urinalysis, [id number] 04:43:00 [facility]scopic [facility] Description: Urinalysis, Complete 2020-10-30 04:43:00[facility] Description: Urinalysis, [id number] 04:43:00[facility] Description: Urinalysis, Bufuhzty4876-01-29 04:43:00Microscopic Examination [facility] Description: Urinalysis, [id number] 04:43:00 [facility]scopic [facility] Description: Urinalysis, Complete 2020-10-30 04:43:00[facility]sc[facility] Description: Urinalysis, [id number] 04:43:00[facility]scopic [facility] Description: Urinalysis, [id number] 04:43:00Microscopic Examination [facility] Description: Urinalysis, [id number] 04:43:00 [facility]scopic [facility] Description: Urinalysis, Complete 2020-10-30 04:43:00[facility]sc[facility] Description: Urinalysis, [id number] 04:43:00[facility]sc[facility] Description: Urinalysis, [id number] 04:43:00Microscopic Examination [facility] Description: Urinalysis, [id number] 04:43:00 Microscopic [facility] Description: Urinalysis, Complete 2020-10-30 04:43:00[facility]sc[facility] Description: Urinalysis, Nuylqqgz2435-25-10 04:43:00[facility]scopic [facility] Description: Urinalysis, [id number] 04:43:00Microscopic Examination [facility] Description: 25-hydroxyvitamin D3 [Mass/volume] in Serum or [id number] 04:26:00 Test Item Value Reference Range Interpretation Comments Vitamin D, 12.0 ng/mL 30.0-100.0 L Vitamin D defic iency has 25-Hydroxy (test been define d by the code = 56251-5) [place] [facility] and an Endocrine So ciety practice guidel ine as alevel of serum 25-OH vitamin D less than 20 ng/mL (1,2).The Endocrine Society went on to further define vitamin Dinsufficiency as a level between 21 and 29 ng/mL (2).1. IOM (Ins titute of Medicine). 2010 . Dietary reference int akes for calcium and D. [facility]: [employer] .2. Ela Oliveros, Stephane EMERSON, et al. Evaluatio n, treatment, and prevention of vitamin D deficiency: an Endocrine Society clinica l practice guideline. EM. 2010; 96(7):1911-30.< br/>
P erformed by:
[facility] [place] ([place])

[facility] Description: 25-hydroxyvitamin D3 [Mass/volume] in Serum or [id number] 04:26:00 Test Item Value Reference Range Interpretation Comments Vitamin D, 12.0 ng/mL 30.0-100.0 L Vitamin D defic iency has 25-Hydroxy (test been define d by the code = 27980-6) [place] [facility] and an Endocrine [facility] practice guidel ine as alevel of serum 25-OH vitamin D less than 20 ng/mL (1,2).The Endocrine Society went on to further define vitamin Dinsufficiency as a level between 21 and 29 ng/mL (2).1. IOM (Ins titute of Medicine). 2010 . Dietary reference int akes for calcium and D. [facility]: [employer] .2. Ela Oliveros, Stephane EMERSON, et al. Evaluatio n, treatment, and prevention of vitamin D deficiency: an Endocrine Society clinica l practice guideline. EM. 2010; 96(7):1911-30.< br/>
P erformed by:
[facility] [place] ([place])

[facility] Description: 25-hydroxyvitamin D3 [Mass/volume] in Serum or [id number] 04:26:00 Test Item Value Reference Range Interpretation Comments Vitamin D, 12.0 ng/mL 30.0-100.0 L Vitamin D defic iency has 25-Hydroxy (test been define d by the code = 32082-1) [place] [facility] an Endocrine [facility] practice guidel ine as alevel of serum 25-OH vitamin D less than 20 ng/mL (1,2).The Endocrine Society went on to further define vitamin Dinsufficiency as a level between 21 and 29 ng/mL (2).1. IOM (Ins titute of Medicine). 2010 . Dietary reference int akes for calcium and D. [facility]: [employer] .2. Ela Oliveros, Stephane EMERSON, et al. Evaluatio n, treatment, and prevention of vitamin D deficiency: an Endocrine Society clinica l practice guideline. [place] EM. 2010; 96(7):1911-30.< br/>
P erformed by:
[facility] ([place])

[facility] Description: 25-hydroxyvitamin D3 [Mass/volume] in Serum or [id number] 04:26:00 Test Item Value Reference Range Interpretation Comments Vitamin D, 12.0 ng/mL 30.0-100.0 L Vitamin D defic iency has 25-Hydroxy (test been define d by the code = 15547-6) [place] [facility] and an Endocrine [facility] practice guidel ine as alevel of serum 25-OH vitamin D less than 20 ng/mL (1,2).The Endocrine Society went on to further define vitamin Dinsufficiency as a level between 21 and 29 ng/mL (2).1. IOM (Ins titute of Medicine). 2010 . Dietary reference int akes for calcium and D. [facility]: [employer] .2. Ela Oliveros, Stephane EMERSON, et al. Evaluatio n, treatment, and prevention of vitamin D deficiency: an Endocrine Society clinica l practice guideline. [place] EM. 2010; 96(7):1911-30.< br/>
P erformed by:
[facility] ([place])

[facility] Description: 25-hydroxyvitamin D3 [Mass/volume] in Serum or [id number] 04:26:00 Test Item Value Reference Range Interpretation Comments Vitamin D, 12.0 ng/mL 30.0-100.0 L Vitamin D defic iency has 25-Hydroxy (test been define d by the code = 02410-7) [place] [facility] an Endocrine [facility] practice guidel ine as alevel of serum 25-OH vitamin D less than 20 ng/mL (1,2).The Endocrine Society went on to further define vitamin Dinsufficiency as a level between 21 and 29 ng/mL (2).1. IOM (Ins titute of Medicine). 2010 . Dietary reference int akes for calcium and D. [facility]: [employer] .2. Ela Oliveros, Stephane EMERSON, et al. Evaluatio n, treatment, and prevention of vitamin D deficiency: an Endocrine Society clinica l practice guideline. [place] EM. 2010; 96(7):191-30.< br/>
P erformed by:
[facility] ([place])

[facility] Description: 25-hydroxyvitamin D3 [Mass/volume] in Serum or [id number] 04:26:00 Test Item Value Reference Range Interpretation Comments Vitamin D, 12.0 ng/mL 30.0-100.0 L Vitamin D defic iency has 25-Hydroxy (test been define d by the code = 92185-6) [place] [facility] an Endocrine [facility] practice guidel ine as alevel of serum 25-OH vitamin D less than 20 ng/mL (1,2).The Endocrine Society went on to further define vitamin Dinsufficiency as a level between 21 and 29 ng/mL (2).1. IOM (Ins [facility]). 2010 . Dietary reference int akes for calcium and D. [facility]: [employer] .2. Ela Oliveros, Stephane EMERSON, et al. Evaluatio n, treatment, and prevention of vitamin D deficiency: an Endocrine Society clinica l practice guideline. [place] EM. 2010; 96(7):191-30.< br/>
P erformed by:
[facility] ([place])

[facility] Description: 25-hydroxyvitamin D3 [Mass/volume] in Serum or [id number] 04:26:00 Test Item Value Reference Range Interpretation Comments Vitamin D, 12.0 ng/mL 30.0-100.0 L Vitamin D defic iency has 25-Hydroxy (test been define d by the code = 15916-3) [place] [facility] [place] [facility] an Endocrine So ciety practice guidel ine as alevel of serum 25-OH vitamin D less than 20 ng/mL (1,2).The Endocrine Society went on to further define vitamin Dinsufficiency as a level between 21 and 29 ng/mL (2).1. IOM (Ins titute of Medicine). 2010 . Dietary reference int akes for calcium and D. [facility]: [employer] .2. Ela Oliveros, Stephane EMERSON, et al. Evaluatio n, treatment, and prevention of vitamin D deficiency: an Endocrine Society clinica l practice guideline. EM. 2010; 96(7):1911-.< br/>
P erformed by:
[facility] ([place])

[facility] Description: 25-hydroxyvitamin D3 [Mass/volume] in Serum or [id number] 04:26:00 Test Item Value Reference Range Interpretation Comments Vitamin D, 12.0 ng/mL 30.0-100.0 L Vitamin D defic iency has 25-Hydroxy (test been define d by the code = 16996-2) [place] [facility] an Endocrine [facility] practice guidel ine as alevel of serum 25-OH vitamin D less than 20 ng/mL (1,2).The Endocrine Society went on to further define vitamin Dinsufficiency as a level between 21 and 29 ng/mL (2).1. IOM (Ins titute of Medicine). 2010 . Dietary reference int akes for calcium and D. [facility]: [employer] .2. Ela Oliveros, Stephane EMERSON, et al. Evaluatio n, treatment, and prevention of vitamin D deficiency: an Endocrine Society clinica l practice guideline. EM. 2010; 96(7):191-.< br/>
P erformed by:
[facility] ([place])

[facility] Description: 25-hydroxyvitamin D3 [Mass/volume] in Serum or [id number] 04:26:00 Test Item Value Reference Range Interpretation Comments Vitamin D, 12.0 ng/mL 30.0-100.0 L Vitamin D defic iency has 25-Hydroxy (test been define d by the code = 52729-5) [place] [facility] and an Endocrine [facility] practice guidel ine as alevel of serum 25-OH vitamin D less than 20 ng/mL (1,2).The Endocrine Society went on to further define vitamin Dinsufficiency as a level between 21 and 29 ng/mL (2).1. IOM (Ins titute of Medicine). 2010 . Dietary reference int akes for calcium and D. [place]: [employer] .2. Ela Oliveros, Stephane EMERSON, et al. Evaluatio n, treatment, and prevention of vitamin D deficiency: an Endocrine Society clinica l practice guideline. EM. 2010; 96(7):1911-30.< br/>
P erformed by:
[facility] ()

[facility] Description: 25-hydroxyvitamin D3 [Mass/volume] in Serum or [id number] 04:26:00 Test Item Value Reference Range Interpretation Comments Vitamin D, 12.0 ng/mL 30.0-100.0 L Vitamin D defic iency has 25-Hydroxy (test been define d by the code = 33276-6) [place] [facility] and an Endocrine [facility] practice guidel ine as alevel of serum 25-OH vitamin D less than 20 ng/mL (1,2).The Endocrine Society went on to further define vitamin Dinsufficiency as a level between 21 and 29 ng/mL (2).1. IOM (Ins titute of Medicine). 2010 . Dietary reference int akes for calcium and D. [place]: [employer] .2. Ela Oliveros, Stephane EMERSON, et al. Evaluatio n, treatment, and prevention of vitamin D deficiency: an Endocrine Society clinica l practice guideline. EM. 2010; 96(7):1911-30.< br/>
P erformed by:
[facility] ([place])

[facility] Description: 25-hydroxyvitamin D3 [Mass/volume] in Serum or [id number] 04:26:00 Test Item Value Reference Range Interpretation Comments Vitamin D, 12.0 ng/mL 30.0-100.0 L Vitamin D defic iency has 25-Hydroxy (test been define d by the code = 60650-1) [place] [facility] and an Endocrine [facility] practice guidel ine as alevel of serum 25-OH vitamin D less than 20 ng/mL (1,2).The Endocrine Society went on to further define vitamin Dinsufficiency as a level between 21 and 29 ng/mL (2).1. IOM (Ins titute of Medicine). 2010 . Dietary reference int akes for calcium and D. [place]: [employer] .2. Ela Oliveros, Stephane EMERSON, et al. Evaluatio n, treatment, and prevention of vitamin D deficiency: an Endocrine Society clinica l practice guideline. EM. 2010; 96(7):1911-30.< br/>
P erformed by:
[facility] ([place])

[facility] Description: 25-hydroxyvitamin D3 [Mass/volume] in Serum or [id number] 04:26:00 Test Item Value Reference Range Interpretation Comments Vitamin D, 12.0 ng/mL 30.0-100.0 L Vitamin D defic iency has 25-Hydroxy (test been define d by the code = 21707-4) [place] [facility] [place] and an Endocrine [facility] practice guidel ine as alevel of serum 25-OH vitamin D less than 20 ng/mL (1,2).The Endocrine Society went on to further define vitamin Dinsufficiency as a level between 21 and 29 ng/mL (2).1. IOM (Ins titute of Medicine). 2010 . Dietary reference int akes for calcium and D. [place]: [employer] .2. Ela Oliveros, Stephane EMERSON, et al. Evaluatio n, treatment, and prevention of vitamin D deficiency: an Endocrine Society clinica l practice guideline. EM. 2010; 96(7):1911-30.< br/>
P erformed by:
[facility] ([place])

[facility] Description: 25-hydroxyvitamin D3 [Mass/volume] in Serum or [id number] 04:26:00 Test Item Value Reference Range Interpretation Comments Vitamin D, 12.0 ng/mL 30.0-100.0 L Vitamin D defic iency has 25-Hydroxy (test been define d by the code = 60076-3) [place] [facility] and an Endocrine [facility] practice guidel ine as alevel of serum 25-OH vitamin D less than 20 ng/mL (1,2).The Endocrine Society went on to further define vitamin Dinsufficiency as a level between 21 and 29 ng/mL (2).1. IOM (Ins titute of Medicine). 2010 . Dietary reference int akes for calcium and D. [place]: [employer] .2. Dileep MF, Ela SANTA, Stephane EMERSON, et al. Evaluatio n, treatment, and prevention of vitamin D deficiency: an Endocrine Society clinica l practice guideline. EM. 2010; 96(7):1911-30.< br/>
P erformed by:
[facility] ()

[facility] Description: 25-hydroxyvitamin D3 [Mass/volume] in Serum or [id number] 04:26:00 Test Item Value Reference Range Interpretation Comments Vitamin D, 12.0 ng/mL 30.0-100.0 L Vitamin D defic iency has 25-Hydroxy (test been define d by the code = 15919-4) [place] [facility] [place] and an Endocrine [facility] practice guidel ine as alevel of serum 25-OH vitamin D less than 20 ng/mL (1,2).The Endocrine Society went on to further define vitamin Dinsufficiency as a level between 21 and 29 ng/mL (2).1. IOM (Ins titute of Medicine). 2010 . Dietary reference int akes for calcium and D. [facility]: [employer] .2. Ela Oliveros, Stephane EMERSON, et al. Evaluatio n, treatment, and prevention of vitamin D deficiency: an Endocrine Society clinica l practice guideline. [facility]. 2010; 96(7):1911-30.< br/>
P erformed by:
[facility] ([place])

[facility] Description: 25-hydroxyvitamin D3 [Mass/volume] in Serum or [id number] 04:26:00 Test Item Value Reference Range Interpretation Comments Vitamin D, 12.0 ng/mL 30.0-100.0 L Vitamin D defic iency has 25-Hydroxy (test been define d by the code = 22509-8) [place] [facility] [place] and an Endocrine [facility] practice guidel ine as alevel of serum 25-OH vitamin D less than 20 ng/mL (1,2).The Endocrine Society went on to further define vitamin Dinsufficiency as a level between 21 and 29 ng/mL (2).1. IOM (Ins titute of Medicine). 2010 . Dietary reference int akes for calcium and D. [facility]: [employer] .2. Ela Oliveros, Stephane EMERSON, et al. Evaluatio n, treatment, and prevention of vitamin D deficiency: an Endocrine Society clinica l practice guideline. [facility]. 2010; 96(7):1911-30.< br/>
P erformed by:
[facility] ()

[facility] Description: 25-hydroxyvitamin D3 [Mass/volume] in Serum or [id number] 04:26:00 Test Item Value Reference Range Interpretation Comments Vitamin D, 12.0 ng/mL 30.0-100.0 L Vitamin D defic iency has 25-Hydroxy (test been define d by the code = 87693-7) [place] [facility] [place] and an Endocrine [facility] practice guidel ine as alevel of serum 25-OH vitamin D less than 20 ng/mL (1,2).The Endocrine Society went on to further define vitamin Dinsufficiency as a level between 21 and 29 ng/mL (2).1. IOM (Ins titute of Medicine). 2010 . Dietary reference int akes for calcium and D. [facility]: [employer] .2. Ela Oliveros, Stephane EMERSON, et al. Evaluatio n, treatment, and prevention of vitamin D deficiency: an Endocrine Society clinica l practice guideline. [place]. 2010; 96(7):1911-30.< br/>
P erformed by:
[facility] ([place])

[facility] Description: 25-hydroxyvitamin D3 [Mass/volume] in Serum or [id number] 04:26:00 Test Item Value Reference Range Interpretation Comments Vitamin D, 12.0 ng/mL 30.0-100.0 L Vitamin D defic iency has 25-Hydroxy (test been define d by the code = 81712-6) [place] [facility] [place] and an Endocrine [facility] practice guidel ine as alevel of serum 25-OH vitamin D less than 20 ng/mL (1,2).The Endocrine Society went on to further define vitamin Dinsufficiency as a level between 21 and 29 ng/mL (2).1. IOM (Ins titute of Medicine). 2010 . Dietary reference int akes for calcium and D. [facility]: [employer] .2. Ela Oliveros, Stephane EMERSON, et al. Evaluatio n, treatment, and prevention of vitamin D deficiency: an Endocrine Society clinica l practice guideline. EM. 2010; 96(7):1911-30.< br/>
P erformed by:
[facility] ([place])

[facility] Description: 25-hydroxyvitamin D3 [Mass/volume] in Serum or [id number] 04:26:00 Test Item Value Reference Range Interpretation Comments Vitamin D, 12.0 ng/mL 30.0-100.0 L Vitamin D defic iency has 25-Hydroxy (test been define d by the code = 34696-0) [place] [facility] [place] and an Endocrine So ciety practice guidel ine as alevel of serum 25-OH vitamin D less than 20 ng/mL (1,2).The Endocrine Society went on to further define vitamin Dinsufficiency as a level between 21 and 29 ng/mL (2).1. IOM (Ins titute of Medicine). 2010 . Dietary reference int akes for calcium and D. [facility]: [employer] .2. Ela Oliveros, Stephane EMERSON, et al. Evaluatio n, treatment, and prevention of vitamin D deficiency: an Endocrine Society clinica l practice guideline. [place]. 2010; 96(7):1911-30.< br/>
P erformed by:
[facility] ([place])

[facility] Description: 25-hydroxyvitamin D3 [Mass/volume] in Serum or [id number] 04:26:00 Test Item Value Reference Range Interpretation Comments Vitamin D, 12.0 ng/mL 30.0-100.0 L Vitamin D defic iency has 25-Hydroxy (test been define d by the code = 11117-1) [place] [facility] [place] and an Endocrine [facility] practice guidel ine as alevel of serum 25-OH vitamin D less than 20 ng/mL (1,2).The Endocrine Society went on to further define vitamin Dinsufficiency as a level between 21 and 29 ng/mL (2).1. IOM (Ins the [facility] of Medicine). 2010 . Dietary reference int akes for calcium and D. [facility]: [employer] .2. Ela Oliveros, Stephane EMERSON, et al. Evaluatio n, treatment, and prevention of vitamin D deficiency: an Endocrine Society clinica l practice guideline. [place] EM. 2010; 96(7):191-30.< br/>
P erformed by:
[facility] ([place])

[facility] Description: 25-hydroxyvitamin D3 [Mass/volume] in Serum or [id number] 04:26:00 Test Item Value Reference Range Interpretation Comments Vitamin D, 12.0 ng/mL 30.0-100.0 L Vitamin D defic iency has 25-Hydroxy (test been define d by the code = 99059-9) [place] [facility] [place] and an Endocrine So ciety practice guidel ine as alevel of serum 25-OH vitamin D less than 20 ng/mL (1,2).The Endocrine Society went on to further define vitamin Dinsufficiency as a level between 21 and 29 ng/mL (2).1. IOM (Ins titute of Medicine). 2010 . Dietary reference int akes for calcium and D. [place]: [employer] .2. Dileep MF, Ela [place], Stephane i EMERSON, et al. Evaluatio n, treatment, and prevention of vitamin D deficiency: an Endocrine Society clinica l practice guideline. [place] EM. 2010; 96(3):1911-30.< br/>
P erformed by:
[facility] ()

[facility] Description: CBC With Differential/Bnqynyic5985-53-15 04:00:00 Test Item Value Reference Range Interpretation [...] (test 1 % Not Estab. code = 17954-1) Immature Grans (Abs) (test code 0.0 x10E3/uL 0.0-0.1 = 74462-7) NRBC (test code = 36827-4) Hematology Comments: (test code = 49501-1) [facility] Description: CBC With Differential/[id number] 04:00:00 Test Item Value Reference Range Interpretation [...] (test 1 % Not Estab. code = 45010-8) Immature Grans (Abs) (test code 0.0 x10E3/uL 0.0-0.1 = 49525-9) NRBC (test code = 23853-7) Hematology Comments: (test code = 88126-8) [facility] Description: CBC With Differential/Lzyblcqd2245-62-98 04:00:00 Test Item Value Reference Range Interpretation [...] (test 1 % Not Estab. code = 22504-2) Immature Grans (Abs) (test code 0.0 x10E3/uL 0.0-0.1 = 87518-1) NRBC (test code = 54701-3) Hematology Comments: (test code = 71066-2) [facility] Description: CBC With Differential/Nbljfgfx6919-71-73 04:00:00 Test Item Value Reference Range Interpretation [...] (test 1 % Not Estab. code = 04586-9) Immature Grans (Abs) (test code 0.0 x10E3/uL 0.0-0.1 = 45211-9) NRBC (test code = 06894-9) Hematology Comments: (test code = 21194-3) [facility] Description: CBC With Differential/Eeiizugl4084-34-18 04:00:00 Test Item Value Reference Range Interpretation [...] (test 1 % Not Estab. code = 23815-3) Immature Grans (Abs) (test code 0.0 x10E3/uL 0.0-0.1 = 11129-3) NRBC (test code = 66964-7) Hematology Comments: (test code = 84249-3) [facility] Description: CBC With Differential/Gmiauspw2603-03-23 04:00:00 Test Item Value Reference Range Interpretation [...] (test 1 % Not Estab. code = 86961-1) Immature Grans (Abs) (test code 0.0 x10E3/uL 0.0-0.1 = 97299-6) NRBC (test code = 25076-2) Hematology Comments: (test code = 49888-3) [facility] Description: CBC With Differential/Norzzhwo1989-06-31 04:00:00 Test Item Value Reference Range Interpretation [...] (test 1 % Not Estab. code = 53524-5) Immature Grans (Abs) (test code 0.0 x10E3/uL 0.0-0.1 = 82953-4) NRBC (test code = 84015-1) Hematology Comments: (test code = 61587-9) [facility] Description: CBC With Differential/Gisogfsi4002-67-93 04:00:00 Test Item Value Reference Range Interpretation [...] (test 1 % Not Estab. code = 52112-7) Immature Grans (Abs) (test code 0.0 x10E3/uL 0.0-0.1 = 17024-3) NRBC (test code = 52985-9) Hematology Comments: (test code = 24518-1) [facility] Description: CBC With Differential/Nbnqiqho0759-69-54 04:00:00 Test Item Value Reference Range Interpretation [...] (test 1 % Not Estab. code = 33812-9) Immature Grans (Abs) (test code 0.0 x10E3/uL 0.0-0.1 = 83227-2) NRBC (test code = 12196-6) Hematology Comments: (test code = 31162-6) [facility] Description: CBC With Differential/Xmkfcyda9014-85-04 04:00:00 Test Item Value Reference Range Interpretation [...] (test 1 % Not Estab. code = 28232-8) Immature Grans (Abs) (test code 0.0 x10E3/uL 0.0-0.1 = 86090-3) NRBC (test code = 13345-2) Hematology Comments: (test code = 55106-6) [facility] Description: CBC With Differential/Ipfikqze7306-54-40 04:00:00 Test Item Value Reference Range Interpretation [...] (test 1 % Not Estab. code = 17105-3) Immature Grans (Abs) (test code 0.0 x10E3/uL 0.0-0.1 = 60887-0) NRBC (test code = 20861-1) Hematology Comments: (test code = 40870-5) [facility] Description: CBC With Differential/Rgzbqofv5662-94-57 04:00:00 Test Item Value Reference Range Interpretation [...] (test 1 % Not Estab. code = 73651-4) Immature Grans (Abs) (test code 0.0 x10E3/uL 0.0-0.1 = 32102-0) NRBC (test code = 76034-5) Hematology Comments: (test code = 95898-4) [facility] Description: CBC With Differential/Fxmsgbuf0007-95-12 04:00:00 Test Item Value Reference Range Interpretation [...] (test 1 % Not Estab. code = 76574-4) Immature Grans (Abs) (test code 0.0 x10E3/uL 0.0-0.1 = 17165-7) NRBC (test code = 97945-6) Hematology Comments: (test code = 25028-9) [facility] Description: CBC With Differential/Ijorfhkk7461-56-34 04:00:00 Test Item Value Reference Range Interpretation [...] (test 1 % Not Estab. code = 34310-2) Immature Grans (Abs) (test code 0.0 x10E3/uL 0.0-0.1 = 43188-6) NRBC (test code = 82019-5) Hematology Comments: (test code = 58604-0) [facility] Description: CBC With Differential/Jbpynppo2307-28-77 04:00:00 Test Item Value Reference Range Interpretation [...] (test 1 % Not Estab. code = 07406-0) Immature Grans (Abs) (test code 0.0 x10E3/uL 0.0-0.1 = 64151-9) NRBC (test code = 74995-6) Hematology Comments: (test code = 59958-0) [facility] Description: CBC With Differential/Auarxdzk1322-38-82 04:00:00 Test Item Value Reference Range Interpretation [...] (test 1 % Not Estab. code = 41961-8) Immature Grans (Abs) (test code 0.0 x10E3/uL 0.0-0.1 = 15987-9) NRBC (test code = 65650-5) Hematology Comments: (test code = 31475-3) [facility] Description: CBC With Differential/Fwdzmlhp8119-01-82 04:00:00 Test Item Value Reference Range Interpretation [...] (test 1 % Not Estab. code = 38727-7) Immature Grans (Abs) (test code 0.0 x10E3/uL 0.0-0.1 = 37683-2) NRBC (test code = 13941-4) Hematology Comments: (test code = 64946-3) [facility] Description: CBC With Differential/Coomzqbp8226-15-99 04:00:00 Test Item Value Reference Range Interpretation [...] (test 1 % Not Estab. code = 59936-4) Immature Grans (Abs) (test code 0.0 x10E3/uL 0.0-0.1 = 87934-8) NRBC (test code = 44404-7) Hematology Comments: (test code = 73474-4) [facility] Description: CBC With Differential/Aytxspin8521-35-68 04:00:00 Test Item Value Reference Range Interpretation [...] (test 1 % Not Estab. code = 48816-3) Immature Grans (Abs) (test code 0.0 x10E3/uL 0.0-0.1 = 31241-5) NRBC (test code = 09062-6) Hematology Comments: (test code = 33622-7) [facility] Description: CBC With Differential/Vbovaaku6278-75-01 04:00:00 Test Item Value Reference Range Interpretation [...] (test 1 % Not Estab. code = 53710-2) Immature Grans (Abs) (test code 0.0 x10E3/uL 0.0-0.1 = 73383-2) NRBC (test code = 00023-1) Hematology Comments: (test code = 73005-4) [facility] Description: Magnesium [Mass/volume] in Serum or Plasma 2020-10-30 02:31:00 Test Item Value Reference Range Interpretation Comments Magnesium (test code = 34091-0) 1.6 mg/dL 1.6-2.3 [facility] Description: Magnesium [Mass/volume] in Serum or Plasma 2020-10-30 02:31:00 Test Item Value Reference Range Interpretation Comments Magnesium (test code = 29659-6) 1.6 mg/dL 1.6-2.3 [facility] Description: Magnesium [Mass/volume] in Serum or Plasma 2020-10-30 02:31:00 Test Item Value Reference Range Interpretation Comments Magnesium (test code = 16209-8) 1.6 mg/dL 1.6-2.3 [facility] Description: Magnesium [Mass/volume] in Serum or Plasma 2020-10-30 02:31:00 Test Item Value Reference Range Interpretation Comments Magnesium (test code = 44785-6) 1.6 mg/dL 1.6-2.3 [facility] Description: Magnesium [Mass/volume] in Serum or Plasma 2020-10-30 02:31:00 Test Item Value Reference Range Interpretation Comments Magnesium (test code = 96612-8) 1.6 mg/dL 1.6-2.3 [facility] Description: Magnesium [Mass/volume] in Serum or Plasma 2020-10-30 02:31:00 Test Item Value Reference Range Interpretation Comments Magnesium (test code = 81774-9) 1.6 mg/dL 1.6-2.3 [facility] Description: Magnesium [Mass/volume] in Serum or Plasma 2020-10-30 02:31:00 Test Item Value Reference Range Interpretation Comments Magnesium (test code = 71798-9) 1.6 mg/dL 1.6-2.3 [facility] Description: Magnesium [Mass/volume] in Serum or Plasma 2020-10-30 02:31:00 Test Item Value Reference Range Interpretation Comments Magnesium (test code = 49193-1) 1.6 mg/dL 1.6-2.3 [facility] Description: Magnesium [Mass/volume] in Serum or Plasma 2020-10-30 02:31:00 Test Item Value Reference Range Interpretation Comments Magnesium (test code = 95795-6) 1.6 mg/dL 1.6-2.3 [facility] Description: Magnesium [Mass/volume] in Serum or Plasma 2020-10-30 02:31:00 Test Item Value Reference Range Interpretation Comments Magnesium (test code = 00379-8) 1.6 mg/dL 1.6-2.3 [facility] Description: Magnesium [Mass/volume] in Serum or Plasma 2020-10-30 02:31:00 Test Item Value Reference Range Interpretation Comments Magnesium (test code = 02082-8) 1.6 mg/dL 1.6-2.3 [facility] Description: Magnesium [Mass/volume] in Serum or Plasma 2020-10-30 02:31:00 Test Item Value Reference Range Interpretation Comments Magnesium (test code = 36043-0) 1.6 mg/dL 1.6-2.3 [facility] Description: Magnesium [Mass/volume] in Serum or Plasma 2020-10-30 02:31:00 Test Item Value Reference Range Interpretation Comments Magnesium (test code = 19943-8) 1.6 mg/dL 1.6-2.3 [facility] Description: Magnesium [Mass/volume] in Serum or Plasma 2020-10-30 02:31:00 Test Item Value Reference Range Interpretation Comments Magnesium (test code = 71915-2) 1.6 mg/dL 1.6-2.3 [facility] Description: Magnesium [Mass/volume] in Serum or Plasma 2020-10-30 02:31:00 Test Item Value Reference Range Interpretation Comments Magnesium (test code = 46669-4) 1.6 mg/dL 1.6-2.3 [facility] Description: Magnesium [Mass/volume] in Serum or Plasma 2020-10-30 02:31:00 Test Item Value Reference Range Interpretation Comments Magnesium (test code = 15375-0) 1.6 mg/dL 1.6-2.3 [facility] Description: Magnesium [Mass/volume] in Serum or Plasma 2020-10-30 02:31:00 Test Item Value Reference Range Interpretation Comments Magnesium (test code = 87913-0) 1.6 mg/dL 1.6-2.3 [facility] Description: Magnesium [Mass/volume] in Serum or Plasma 2020-10-30 02:31:00 Test Item Value Reference Range Interpretation Comments Magnesium (test code = 71769-8) 1.6 mg/dL 1.6-2.3 [facility] Description: Magnesium [Mass/volume] in Serum or Plasma 2020-10-30 02:31:00 Test Item Value Reference Range Interpretation Comments Magnesium (test code = 15386-6) 1.6 mg/dL 1.6-2.3 [facility] Description: Magnesium [Mass/volume] in Serum or Plasma 2020-10-30 02:31:00 Test Item Value Reference Range Interpretation Comments Magnesium (test code = 02523-7) 1.6 mg/dL 1.6-2.3 [facility] Description: Lipid Crceu3690-79-45 02:17:00 Test Item Value Reference Range Interpretation Comments Cholesterol, Total (test code = 167 mg/dL 671-001 8821-3) Triglycerides (test code = 2571-8) 60 mg/dL 0-149 HDL Cholesterol (test code = 33 mg/dL >39 L 5-9) VLDL Cholesterol [place] (test code = 12 mg/dL 5-40 07747-4) LDL Chol Calc (NIH) (test code = 122 mg/dL 0-99 H 47888-1) Comment: (test code = 21542-1) [facility] Description: Lipid Sdrdi7802-12-83 02:17:00 Test Item Value Reference Range Interpretation Comments Cholesterol, Total (test code = 167 mg/dL 609-285 4319-3) Triglycerides (test code = 2571-8) 60 mg/dL 0-149 HDL Cholesterol (test code = 33 mg/dL >39 L 5-9) VLDL Cholesterol [place] (test code = 12 mg/dL 5-40 74813-4) LDL Chol Calc (NIH) (test code = 122 mg/dL 0-99 H 99891-8) Comment: (test code = 15278-1) [facility] Description: Lipid [id number] 02:17:00 Test Item Value Reference Range Interpretation Comments Cholesterol, Total (test code = 167 mg/dL 486-229 6297-3) Triglycerides (test code = 2571-8) 60 mg/dL 0-149 HDL Cholesterol (test code = 33 mg/dL >39 L 5-9) VLDL Cholesterol [place] (test code = 12 mg/dL 5-40 97697-7) LDL Chol Calc (NIH) (test code = 122 mg/dL 0-99 H 66539-4) Comment: (test code = 08441-1) [facility] Description: Lipid [id number] 02:17:00 Test Item Value Reference Range Interpretation Comments Cholesterol, Total (test code = 167 mg/dL 410-246 2392-3) Triglycerides (test code = 2571-8) 60 mg/dL 0-149 HDL Cholesterol (test code = 33 mg/dL >39 L 2085-9) VLDL Cholesterol [place] (test code = 12 mg/dL 5-40 37151-2) LDL Chol Calc (NIH) (test code = 122 mg/dL 0-99 H 35370-7) Comment: (test code = 59490-8) [facility] Description: Lipid [id number] 02:17:00 Test Item Value Reference Range Interpretation Comments Cholesterol, Total (test code = 167 mg/dL 886-828 7603-3) Triglycerides (test code = 2571-8) 60 mg/dL 0-149 HDL Cholesterol (test code = 33 mg/dL >39 L 5-9) VLDL Cholesterol [place] (test code = 12 mg/dL 5-40 46825-9) LDL Chol Calc (NIH) (test code = 122 mg/dL 0-99 H 16502-0) Comment: (test code = 19093-7) [facility] Description: Lipid Zmsmn4724-29-30 02:17:00 Test Item Value Reference Range Interpretation Comments Cholesterol, Total (test code = 167 mg/dL 481-677 2390-3) Triglycerides (test code = 2571-8) 60 mg/dL 0-149 HDL Cholesterol (test code = 33 mg/dL >39 L 2085-9) VLDL Cholesterol [place]uka (test code = 12 mg/dL 5-40 77330-3) LDL Chol Calc (NIH) (test code = 122 mg/dL 0-99 H 20580-4) Comment: (test code = 59400-8) [facility] Description: Lipid [id number] 02:17:00 Test Item Value Reference Range Interpretation Comments Cholesterol, Total (test code = 167 mg/dL 396-117 7106-3) Triglycerides (test code = 2571-8) 60 mg/dL 0-149 HDL Cholesterol (test code = 33 mg/dL >39 L 2085-9) VLDL Cholesterol [place]uka (test code = 12 mg/dL 5-40 80548-4) LDL Chol Calc (NIH) (test code = 122 mg/dL 0-99 H 70372-5) Comment: (test code = 15665-4) [facility] Description: Lipid Aekxp0581-04-89 02:17:00 Test Item Value Reference Range Interpretation Comments Cholesterol, Total (test code = 167 mg/dL 502-635 4220-3) Triglycerides (test code = 2571-8) 60 mg/dL 0-149 HDL Cholesterol (test code = 33 mg/dL >39 L 2085-9) VLDL Cholesterol Renuka (test code = 12 mg/dL 5-40 68299-7) LDL Chol Calc (NIH) (test code = 122 mg/dL 0-99 H 35835-0) Comment: (test code = 80626-3) Proxible Description: Lipid [id number] 02:17:00 Test Item Value Reference Range Interpretation Comments Cholesterol, Total (test code = 167 mg/dL 406-917 5777-3) Triglycerides (test code = 2571-8) 60 mg/dL 0-149 HDL Cholesterol (test code = 33 mg/dL >39 L 2085-9) VLDL Cholesterol Renuka (test code = 12 mg/dL 5-40 36642-5) LDL Chol Calc (NIH) (test code = 122 mg/dL 0-99 H 75490-1) Comment: (test code = 60386-8) Proxible Description: Lipid [id number] 02:17:00 Test Item Value Reference Range Interpretation Comments Cholesterol, Total (test code = 167 mg/dL 262-492 6153-3) Triglycerides (test code = 2571-8) 60 mg/dL 0-149 HDL Cholesterol (test code = 33 mg/dL >39 L 2085-9) VLDL Cholesterol Renuka (test code = 12 mg/dL 5-40 97604-7) LDL Chol Calc (NIH) (test code = 122 mg/dL 0-99 H 27199-9) Comment: (test code = 32094-3) Proxible Description: Lipid [id number] 02:17:00 Test Item Value Reference Range Interpretation Comments Cholesterol, Total (test code = 167 mg/dL 079-500 7160-3) Triglycerides (test code = 2571-8) 60 mg/dL 0-149 HDL Cholesterol (test code = 33 mg/dL >39 L 5-9) VLDL Cholesterol Renuka (test code = 12 mg/dL 5-40 13776-6) LDL Chol Calc (NIH) (test code = 122 mg/dL 0-99 H 06551-5) Comment: (test code = 76055-7) Proxible Description: Lipid [id number] 02:17:00 Test Item Value Reference Range Interpretation Comments Cholesterol, Total (test code = 167 mg/dL 610-355 8655-3) Triglycerides (test code = 2571-8) 60 mg/dL 0-149 HDL Cholesterol (test code = 33 mg/dL >39 L 5-9) VLDL Cholesterol Renuka (test code = 12 mg/dL 5-40 80538-4) LDL Chol Calc (NIH) (test code = 122 mg/dL 0-99 H 64054-1) Comment: (test code = 67779-5) Proxible Description: Lipid [id number] 02:17:00 Test Item Value Reference Range Interpretation Comments Cholesterol, Total (test code = 167 mg/dL 770-419 1278-3) Triglycerides (test code = 2571-8) 60 mg/dL 0-149 HDL Cholesterol (test code = 33 mg/dL >39 L 5-9) VLDL Cholesterol Renuka (test code = 12 mg/dL 5-40 75482-9) LDL Chol Calc (NIH) (test code = 122 mg/dL 0-99 H 65216-6) Comment: (test code = 55898-9) Proxible Description: Lipid [id number] 02:17:00 Test Item Value Reference Range Interpretation Comments Cholesterol, Total (test code = 167 mg/dL 971-026 9097-3) Triglycerides (test code = 2571-8) 60 mg/dL 0-149 HDL Cholesterol (test code = 33 mg/dL >39 L 5-9) VLDL Cholesterol Renuka (test code = 12 mg/dL 5-40 78915-2) LDL Chol Calc (NIH) (test code = 122 mg/dL 0-99 H 01939-0) Comment: (test code = 08470-6) Proxible Description: Lipid [id number] 02:17:00 Test Item Value Reference Range Interpretation Comments Cholesterol, Total (test code = 167 mg/dL 419-350 8275-3) Triglycerides (test code = 2571-8) 60 mg/dL 0-149 HDL Cholesterol (test code = 33 mg/dL >39 L 5-9) VLDL Cholesterol Renuka (test code = 12 mg/dL 5-40 43751-0) LDL Chol Calc (NIH) (test code = 122 mg/dL 0-99 H 91728-9) Comment: (test code = 76852-6) Proxible Description: Lipid [id number] 02:17:00 Test Item Value Reference Range Interpretation Comments Cholesterol, Total (test code = 167 mg/dL 356-055 2415-3) Triglycerides (test code = 2571-8) 60 mg/dL 0-149 HDL Cholesterol (test code = 33 mg/dL >39 L 5-9) VLDL Cholesterol Renuka (test code = 12 mg/dL 5-40 14992-8) LDL Chol Calc (NIH) (test code = 122 mg/dL 0-99 H 80586-4) Comment: (test code = 95244-7) Proxible Description: Lipid [id number] 02:17:00 Test Item Value Reference Range Interpretation Comments Cholesterol, Total (test code = 167 mg/dL 126-690 6285-3) Triglycerides (test code = 2571-8) 60 mg/dL 0-149 HDL Cholesterol (test code = 33 mg/dL >39 L 5-9) VLDL Cholesterol Renuka (test code = 12 mg/dL 5-40 11797-7) LDL Chol Calc (NIH) (test code = 122 mg/dL 0-99 H 92647-1) Comment: (test code = 46696-2) Proxible Description: Lipid [id number] 02:17:00 Test Item Value Reference Range Interpretation Comments Cholesterol, Total (test code = 167 mg/dL 943-658 3396-3) Triglycerides (test code = 2571-8) 60 mg/dL 0-149 HDL Cholesterol (test code = 33 mg/dL >39 L 5-9) VLDL Cholesterol Renuka (test code = 12 mg/dL 5-40 25087-8) LDL Chol Calc (NIH) (test code = 122 mg/dL 0-99 H 75846-4) Comment: (test code = 71778-7) Proxible Description: Lipid [id number] 02:17:00 Test Item Value Reference Range Interpretation Comments Cholesterol, Total (test code = 167 mg/dL 885-648 6252-3) Triglycerides (test code = 2571-8) 60 mg/dL 0-149 HDL Cholesterol (test code = 33 mg/dL >39 L 2085-9) VLDL Cholesterol Renuka (test code = 12 mg/dL 5-40 00415-5) LDL Chol Calc (NIH) (test code = 122 mg/dL 0-99 H 83850-4) Comment: (test code = 91873-5) [facility] Description: Lipid [id number] 02:17:00 Test Item Value Reference Range Interpretation Comments Cholesterol, Total (test code = 167 mg/dL 368-768 3961-3) Triglycerides (test code = 2571-8) 60 mg/dL 0-149 HDL Cholesterol (test code = 33 mg/dL >39 L 5-9) VLDL Cholesterol Renuka (test code = 12 mg/dL 5-40 89841-8) LDL Chol Calc (NIH) (test code = 122 mg/dL 0-99 H 39429-1) Comment: (test code = 85168-3) Proxible Description: Comp. Metabolic Panel (14)2020-10-30 01:58:00 Test Item Value Reference Range Interpretation Comments Glucose (test code 50 mg/dL 65-99 L = 2345-7) BUN (test code = 52 mg/dL 6-24 H 3094-0) Creatinine (test 2.04 mg/dL 0.76-1.27 H code = 2160-0) eGFR If NonAfricn 38 >59 L Am (test code = mL/min/1.73 32475-6) eGFR If Africn Am 44 >59 L [facility] currently (test code = mL/min/1[place]73 [place] [address]-7) compliance with the current recommendations of the National Kidney Foundation. [place] will update re porting as new guidelin es are published from the NKF-ASN Task force.
<br/ >Perfor med by:
Lab [place] Kaur (HD)

BUN/Creatinine 25 9-20 H Ratio (test code = 3097-3) Sodium (test code = 142 mmol/L 581-593 4664-2) Potassium (test 4.1 mmol/L 3.5-5.2 code = 2823-3) Chloride (test code 103 mmol/L 96-106 = 2075-0) Carbon Dioxide, 27 mmol/L 20-29 Total (test code = 2027-) Calcium (test code 8.8 mg/dL 8.7-10.2 = 94951-9) Protein, Total 6.8 g/dL 6.0-8.5 (test code = 2885-2) Albumin (test code 3.3 g/dL 4.0-5.0 L = 1751-7) Globulin, Total 3.5 g/dL 1.5-4.5 (test code = 56718-4) A/G Ratio (test 0.9 1.2-2.2 L code = 1759-0) Bilirubin, Total 0.7 mg/dL 0.0-1.2 (test code = 1975-2) Alkaline 140 IU/L 48-121 H Phosphatase (test code = 6768-6) AST (SGOT) (test 14 IU/L 0-40 code = 1920-8) ALT (SGPT) (test 21 IU/L 0-44 code = 1742-6) [facility] Description: Comp. Metabolic Panel (14)2020-10-30 01:58:00 Test Item Value Reference Range Interpretation Comments Glucose (test code 50 mg/dL 65-99 L = 2345-7) BUN (test code = 52 mg/dL 6-24 H 3094-0) Creatinine (test 2.04 mg/dL 0.76-1.27 H code = 2160-0) eGFR If NonAfricn 38 >59 L Am (test code = mL/min/1.73 57970-7) eGFR If Africn Am 44 >59 L [facility] currently (test code = mL/min/1[place]73 [place] [address]-1) compliance with the current recommendations of the National Kidney Foundation. [place] will update re porting as new guidelin es are published from the NKF-ASN Task force.
<br/ >Perfor med by:
Lab [place] Kaur (HD)

BUN/Creatinine 25 9-20 H Ratio (test code = 3097-3) Sodium (test code = 142 mmol/L 861-827 9454-2) Potassium (test 4.1 mmol/L 3.5-5.2 code = 2823-3) Chloride (test code 103 mmol/L 96-106 = 2075-0) Carbon Dioxide, 27 mmol/L 20-29 Total (test code = 2027-) Calcium (test code 8.8 mg/dL 8.7-10.2 = 79268-5) Protein, Total 6.8 g/dL 6.0-8.5 (test code = 2885-2) Albumin (test code 3.3 g/dL 4.0-5.0 L = 1751-7) Globulin, Total 3.5 g/dL 1.5-4.5 (test code = 60963-5) A/G Ratio (test 0.9 1.2-2.2 L code = 1759-0) Bilirubin, Total 0.7 mg/dL 0.0-1.2 (test code = 1975-2) Alkaline 140 IU/L 48-121 H Phosphatase (test code = 6768-6) AST (SGOT) (test 14 IU/L 0-40 code = 1920-8) ALT (SGPT) (test 21 IU/L 0-44 code = 1742-6) [facility] Description: Comp. Metabolic Panel (14)2020-10-30 01:58:00 Test Item Value Reference Range Interpretation Comments Glucose (test code 50 mg/dL 65-99 L = 2345-7) BUN (test code = 52 mg/dL 6-24 H 3094-0) Creatinine (test 2.04 mg/dL 0.76-1.27 H code = 2160-0) eGFR If NonAfricn 38 >59 L Am (test code = mL/min/1.73 19502-1) eGFR If Africn Am 44 >59 L [facility] currently (test code = mL/min/1[place] [address]-5) compliance with the current recommendations of the National Kidney Foundation. [place] will update re porting as new guidelin es are published from the NKF-ASN Task force.
<br/ >Perfor med by:
Lab [place] Kaur (HD)

BUN/Creatinine 25 9-20 H Ratio (test code = 3097-3) Sodium (test code = 142 mmol/L 747-260 3880-2) Potassium (test 4.1 mmol/L 3.5-5.2 code = 2823-3) Chloride (test code 103 mmol/L 96-106 = 2075-0) Carbon Dioxide, 27 mmol/L 20-29 Total (test code = 2027-9) Calcium (test code 8.8 mg/dL 8.7-10.2 = 12133-4) Protein, Total 6.8 g/dL 6.0-8.5 (test code = 2885-2) Albumin (test code 3.3 g/dL 4.0-5.0 L = 1751-7) Globulin, Total 3.5 g/dL 1.5-4.5 (test code = 13190-9) A/G Ratio (test 0.9 1.2-2.2 L code = 1759-0) Bilirubin, Total 0.7 mg/dL 0.0-1.2 (test code = 1975-2) Alkaline 140 IU/L 48-121 H Phosphatase (test code = 6768-6) AST (SGOT) (test 14 IU/L 0-40 code = 1920-8) ALT (SGPT) (test 21 IU/L 0-44 code = 1742-6) [facility] Description: Comp. Metabolic Panel (14)2020-10-30 01:58:00 Test Item Value Reference Range Interpretation Comments Glucose (test code 50 mg/dL 65-99 L = 2345-7) BUN (test code = 52 mg/dL 6-24 H 3094-0) Creatinine (test 2.04 mg/dL 0.76-1.27 H code = 2160-0) eGFR If NonAfricn 38 >59 L Am (test code = mL/min/1.73 83317-9) eGFR If Africn Am 44 >59 L [facility] currently (test code = mL/min/1[place] [address]-7) compliance with the current recommendations of the National Kidney Foundation. [place] will update re porting as new guidelin es are published from the NKF-ASN Task force.
<br/ >Perfor med by:
Lab [place] Kaur (HD)

BUN/Creatinine 25 9-20 H Ratio (test code = 3097-3) Sodium (test code = 142 mmol/L 124-049 0378-2) Potassium (test 4.1 mmol/L 3.5-5.2 code = 2823-3) Chloride (test code 103 mmol/L 96-106 = 2075-0) Carbon Dioxide, 27 mmol/L 20-29 Total (test code = 2027-9) Calcium (test code 8.8 mg/dL 8.7-10.2 = 71028-8) Protein, Total 6.8 g/dL 6.0-8.5 (test code = 2885-2) Albumin (test code 3.3 g/dL 4.0-5.0 L = 1751-7) Globulin, Total 3.5 g/dL 1.5-4.5 (test code = 45205-0) A/G Ratio (test 0.9 1.2-2.2 L code = 1759-0) Bilirubin, Total 0.7 mg/dL 0.0-1.2 (test code = 1975-2) Alkaline 140 IU/L 48-121 H Phosphatase (test code = 6768-6) AST (SGOT) (test 14 IU/L 0-40 code = 1920-8) ALT (SGPT) (test 21 IU/L 0-44 code = 1742-6) [facility] Description: Comp. Metabolic Panel (14)2020-10-30 01:58:00 Test Item Value Reference Range Interpretation Comments Glucose (test code 50 mg/dL 65-99 L = 2345-7) BUN (test code = 52 mg/dL 6-24 H 3094-0) Creatinine (test 2.04 mg/dL 0.76-1.27 H code = 2160-0) eGFR If NonAfricn 38 >59 L Am (test code = mL/min/1.73 76455-4) eGFR If Africn Am 44 >59 L [facility] currently (test code = mL/min/1[place] [address]-1) compliance with the current recommendations of the National Kidney Foundation. [place] will update re porting as new guidelin es are published from the NKF-ASN Task force.
<br/ >Perfor med by:
Lab [place] Kaur (HD)

BUN/Creatinine 25 9-20 H Ratio (test code = 3097-3) Sodium (test code = 142 mmol/L 294-734 3097-2) Potassium (test 4.1 mmol/L 3.5-5.2 code = 2823-3) Chloride (test code 103 mmol/L 96-106 = 2075-0) Carbon Dioxide, 27 mmol/L 20-29 Total (test code = 2027-) Calcium (test code 8.8 mg/dL 8.7-10.2 = 26219-0) Protein, Total 6.8 g/dL 6.0-8.5 (test code = 2885-2) Albumin (test code 3.3 g/dL 4.0-5.0 L = 1751-7) Globulin, Total 3.5 g/dL 1.5-4.5 (test code = 48453-3) A/G Ratio (test 0.9 1.2-2.2 L code = 1759-0) Bilirubin, Total 0.7 mg/dL 0.0-1.2 (test code = 1975-2) Alkaline 140 IU/L 48-121 H Phosphatase (test code = 6768-6) AST (SGOT) (test 14 IU/L 0-40 code = 1920-8) ALT (SGPT) (test 21 IU/L 0-44 code = 1742-6) [facility] Description: Comp. Metabolic Panel (14)2020-10-30 01:58:00 Test Item Value Reference Range Interpretation Comments Glucose (test code 50 mg/dL 65-99 L = 2345-7) BUN (test code = 52 mg/dL 6-24 H 3094-0) Creatinine (test 2.04 mg/dL 0.76-1.27 H code = 2160-0) eGFR If NonAfricn 38 >59 L Am (test code = mL/min/1.73 91279-3) eGFR If Africn Am 44 >59 L [facility] currently (test code = mL/min/1.73 [place] [address]-1) compliance with the current recommendations of the National Kidney Foundation. [place] will update re porting as new guidelin es are published from the NKF-ASN Task force.
<br/ >Perfor med by:
Lab [place] Kaur (HD)

BUN/Creatinine 25 9-20 H Ratio (test code = 3097-3) Sodium (test code = 142 mmol/L 994-501 0122-2) Potassium (test 4.1 mmol/L 3.5-5.2 code = 2823-3) Chloride (test code 103 mmol/L 96-106 = 2075-0) Carbon Dioxide, 27 mmol/L 20-29 Total (test code = 2027-) Calcium (test code 8.8 mg/dL 8.7-10.2 = 99438-6) Protein, Total 6.8 g/dL 6.0-8.5 (test code = 2885-2) Albumin (test code 3.3 g/dL 4.0-5.0 L = 1751-7) Globulin, Total 3.5 g/dL 1.5-4.5 (test code = 86999-4) A/G Ratio (test 0.9 1.2-2.2 L code = 1759-0) Bilirubin, Total 0.7 mg/dL 0.0-1.2 (test code = 1975-2) Alkaline 140 IU/L 48-121 H Phosphatase (test code = 6768-6) AST (SGOT) (test 14 IU/L 0-40 code = 1920-8) ALT (SGPT) (test 21 IU/L 0-44 code = 1742-6) [facility] Description: Comp. Metabolic Panel (14)2020-10-30 01:58:00 Test Item Value Reference Range Interpretation Comments Glucose (test code 50 mg/dL 65-99 L = 2345-7) BUN (test code = 52 mg/dL 6-24 H 3094-0) Creatinine (test 2.04 mg/dL 0.76-1.27 H code = 2160-0) eGFR If NonAfricn 38 >59 L Am (test code = mL/min/1.73 92777-3) eGFR If Africn Am 44 >59 L [facility] currently (test code = mL/min/1.73 [place] [address]-3) compliance with the current recommendations of the National Kidney Foundation. [place] will update re porting as new guidelin es are published from the NKF-ASN Task force.
<br/ >Perfor med by:
Lab [place] Kaur (HD)

BUN/Creatinine 25 9-20 H Ratio (test code = 3097-3) Sodium (test code = 142 mmol/L 261-500 6263-2) Potassium (test 4.1 mmol/L 3.5-5.2 code = 2823-3) Chloride (test code 103 mmol/L 96-106 = 2075-0) Carbon Dioxide, 27 mmol/L 20-29 Total (test code = 2027-) Calcium (test code 8.8 mg/dL 8.7-10.2 = 52945-0) Protein, Total 6.8 g/dL 6.0-8.5 (test code = 2885-2) Albumin (test code 3.3 g/dL 4.0-5.0 L = 1751-7) Globulin, Total 3.5 g/dL 1.5-4.5 (test code = 17070-9) A/G Ratio (test 0.9 1.2-2.2 L code = 1759-0) Bilirubin, Total 0.7 mg/dL 0.0-1.2 (test code = 1975-2) Alkaline 140 IU/L 48-121 H Phosphatase (test code = 6768-6) AST (SGOT) (test 14 IU/L 0-40 code = 1920-8) ALT (SGPT) (test 21 IU/L 0-44 code = 1742-6) [facility] Description: Comp. Metabolic Panel (14)2020-10-30 01:58:00 Test Item Value Reference Range Interpretation Comments Glucose (test code 50 mg/dL 65-99 L = 2345-7) BUN (test code = 52 mg/dL 6-24 H 3094-0) Creatinine (test 2.04 mg/dL 0.76-1.27 H code = 2160-0) eGFR If NonAfricn 38 >59 L Am (test code = mL/min/1.73 63628-8) eGFR If Africn Am 44 >59 L [facility] currently (test code = mL/min/1.73 [place] [address]-6) compliance with the current recommendations of the National Kidney Foundation. [place] will update re porting as new guidelin es are published from the NKF-ASN Task force.
<br/ >Perfor med by:
Lab [place] Kaur (HD)

BUN/Creatinine 25 9-20 H Ratio (test code = 3097-3) Sodium (test code = 142 mmol/L 961-156 0538-2) Potassium (test 4.1 mmol/L 3.5-5.2 code = 2823-3) Chloride (test code 103 mmol/L 96-106 = 2075-0) Carbon Dioxide, 27 mmol/L 20-29 Total (test code = 2027-) Calcium (test code 8.8 mg/dL 8.7-10.2 = 93676-3) Protein, Total 6.8 g/dL 6.0-8.5 (test code = 2885-2) Albumin (test code 3.3 g/dL 4.0-5.0 L = 1751-7) Globulin, Total 3.5 g/dL 1.5-4.5 (test code = 21639-0) A/G Ratio (test 0.9 1.2-2.2 L code = 1759-0) Bilirubin, Total 0.7 mg/dL 0.0-1.2 (test code = 1975-2) Alkaline 140 IU/L 48-121 H Phosphatase (test code = 6768-6) AST (SGOT) (test 14 IU/L 0-40 code = 1920-8) ALT (SGPT) (test 21 IU/L 0-44 code = 1742-6) [facility] Description: Comp. Metabolic Panel (14)2020-10-30 01:58:00 Test Item Value Reference Range Interpretation Comments Glucose (test code 50 mg/dL 65-99 L = 2345-7) BUN (test code = 52 mg/dL 6-24 H 3094-0) Creatinine (test 2.04 mg/dL 0.76-1.27 H code = 2160-0) eGFR If NonAfricn 38 >59 L Am (test code = mL/min/1.73 88841-4) eGFR If Africn Am 44 >59 L [facility] currently (test code = mL/min/1.73 [place] [address]-4) compliance with the current recommendations of the National Kidney Foundation. [place] will update re porting as new guidelin es are published from the NKF-ASN Task force.
<br/ >Perfor med by:
Lab [place] Kaur (HD)

BUN/Creatinine 25 9-20 H Ratio (test code = 3097-3) Sodium (test code = 142 mmol/L 236-738 4259-2) Potassium (test 4.1 mmol/L 3.5-5.2 code = 2823-3) Chloride (test code 103 mmol/L 96-106 = 2075-0) Carbon Dioxide, 27 mmol/L 20-29 Total (test code = 2027-9) Calcium (test code 8.8 mg/dL 8.7-10.2 = 63768-3) Protein, Total 6.8 g/dL 6.0-8.5 (test code = 2885-2) Albumin (test code 3.3 g/dL 4.0-5.0 L = 1751-7) Globulin, Total 3.5 g/dL 1.5-4.5 (test code = 12953-3) A/G Ratio (test 0.9 1.2-2.2 L code = 1759-0) Bilirubin, Total 0.7 mg/dL 0.0-1.2 (test code = 1975-2) Alkaline 140 IU/L 48-121 H Phosphatase (test code = 6768-6) AST (SGOT) (test 14 IU/L 0-40 code = 1920-8) ALT (SGPT) (test 21 IU/L 0-44 code = 1742-6) [facility] Description: Comp. Metabolic Panel (142020-10-30 01:58:00 Test Item Value Reference Range Interpretation Comments Glucose (test code 50 mg/dL 65-99 L = 2345-7) BUN (test code = 52 mg/dL 6-24 H 3094-0) Creatinine (test 2.04 mg/dL 0.76-1.27 H code = 2160-0) eGFR If NonAfricn 38 >59 L Am (test code = mL/min/1.73 59077-7) eGFR If Africn Am 44 >59 L [facility] currently (test code = mL/min/1[place]73 [place] [address]-3) compliance with the current recommendations of the National Kidney Foundation. [place] will update re porting as new guidelin es are published from the NKF-ASN Task force.
<br/ >Perfor med by:
Lab [place] Kaur (HD)

BUN/Creatinine 25 9-20 H Ratio (test code = 3097-3) Sodium (test code = 142 mmol/L 309-439 9525-2) Potassium (test 4.1 mmol/L 3.5-5.2 code = 2823-3) Chloride (test code 103 mmol/L 96-106 = 2075-0) Carbon Dioxide, 27 mmol/L 20-29 Total (test code = 2027-) Calcium (test code 8.8 mg/dL 8.7-10.2 = 30154-7) Protein, Total 6.8 g/dL 6.0-8.5 (test code = 2885-2) Albumin (test code 3.3 g/dL 4.0-5.0 L = 1751-7) Globulin, Total 3.5 g/dL 1.5-4.5 (test code = 02126-3) A/G Ratio (test 0.9 1.2-2.2 L code = 1759-0) Bilirubin, Total 0.7 mg/dL 0.0-1.2 (test code = 1975-2) Alkaline 140 IU/L 48-121 H Phosphatase (test code = 6768-6) AST (SGOT) (test 14 IU/L 0-40 code = 1920-8) ALT (SGPT) (test 21 IU/L 0-44 code = 1742-6) [facility] Description: Comp. Metabolic Panel (14)2020-10-30 01:58:00 Test Item Value Reference Range Interpretation Comments Glucose (test code 50 mg/dL 65-99 L = 2345-7) BUN (test code = 52 mg/dL 6-24 H 3094-0) Creatinine (test 2.04 mg/dL 0.76-1.27 H code = 2160-0) eGFR If NonAfricn 38 >59 L Am (test code = mL/min/1.73 20103-7) eGFR If Africn Am 44 >59 L [facility] currently (test code = mL/min/1.73 [place] [address]-1) compliance with the current recommendations of the National Kidney Foundation. [place] will update re porting as new guidelin es are published from the NKF-ASN Task force.
<br/ >Perfor med by:
Lab [place] (HD)

BUN/Creatinine 25 9-20 H Ratio (test code = 3097-3) Sodium (test code = 142 mmol/L 348-240 1700-2) Potassium (test 4.1 mmol/L 3.5-5.2 code = 2823-3) Chloride (test code 103 mmol/L 96-106 = 2075-0) Carbon Dioxide, 27 mmol/L 20-29 Total (test code = 2027-) Calcium (test code 8.8 mg/dL 8.7-10.2 = 16598-7) Protein, Total 6.8 g/dL 6.0-8.5 (test code = 2885-2) Albumin (test code 3.3 g/dL 4.0-5.0 L = 1751-7) Globulin, Total 3.5 g/dL 1.5-4.5 (test code = 48404-9) A/G Ratio (test 0.9 1.2-2.2 L code = 1759-0) Bilirubin, Total 0.7 mg/dL 0.0-1.2 (test code = 1975-2) Alkaline 140 IU/L 48-121 H Phosphatase (test code = 6768-6) AST (SGOT) (test 14 IU/L 0-40 code = 1920-8) ALT (SGPT) (test 21 IU/L 0-44 code = 1742-6) [facility] Description: Comp. Metabolic Panel (14)2020-10-30 01:58:00 Test Item Value Reference Range Interpretation Comments Glucose (test code 50 mg/dL 65-99 L = 2345-7) BUN (test code = 52 mg/dL 6-24 H 3094-0) Creatinine (test 2.04 mg/dL 0.76-1.27 H code = 2160-0) eGFR If NonAfricn 38 >59 L Am (test code = mL/min/1.73 60123-9) eGFR If Africn Am 44 >59 L [facility] currently (test code = mL/min/1.73 [place] [address]-1) compliance with the current recommendations of the National Kidney Foundation. [facility] [place] will update re porting as new guidelin es are published from the NKF-ASN Task force.
<br/ >Perfor med by:
Lab [place] Kaur (HD)

BUN/Creatinine 25 9-20 H Ratio (test code = 3097-3) Sodium (test code = 142 mmol/L 776-254 0020-2) Potassium (test 4.1 mmol/L 3.5-5.2 code = 2823-3) Chloride (test code 103 mmol/L 96-106 = 2075-0) Carbon Dioxide, 27 mmol/L 20-29 Total (test code = 2027-) Calcium (test code 8.8 mg/dL 8.7-10.2 = 27062-4) Protein, Total 6.8 g/dL 6.0-8.5 (test code = 2885-2) Albumin (test code 3.3 g/dL 4.0-5.0 L = 1751-7) Globulin, Total 3.5 g/dL 1.5-4.5 (test code = 97199-3) A/G Ratio (test 0.9 1.2-2.2 L code = 1759-0) Bilirubin, Total 0.7 mg/dL 0.0-1.2 (test code = 1975-2) Alkaline 140 IU/L 48-121 H Phosphatase (test code = 6768-6) AST (SGOT) (test 14 IU/L 0-40 code = 1920-8) ALT (SGPT) (test 21 IU/L 0-44 code = 1742-6) [facility] Description: Comp. Metabolic Panel (14)2020-10-30 01:58:00 Test Item Value Reference Range Interpretation Comments Glucose (test code 50 mg/dL 65-99 L = 2345-7) BUN (test code = 52 mg/dL 6-24 H 3094-0) Creatinine (test 2.04 mg/dL 0.76-1.27 H code = 2160-0) eGFR If NonAfricn 38 >59 L Am (test code = mL/min/1.73 33661-6) eGFR If Africn Am 44 >59 L [facility] currently (test code = mL/min/1[place] [address]-6) compliance with the current recommendations of the [employer]. [facility] [place] will update re porting as new guidelin es are published from the NKF-ASN Task force.
<br/ >Perfor med by:
[facility] [place] [facility]aur (HD)

BUN/Creatinine 25 9-20 H Ratio (test code = 3097-3) Sodium (test code = 142 mmol/L 770-316 3417-2) Potassium (test 4.1 mmol/L 3.5-5.2 code = 2823-3) Chloride (test code 103 mmol/L 96-106 = 2075-0) Carbon Dioxide, 27 mmol/L 20-29 Total (test code = 2027-) Calcium (test code 8.8 mg/dL 8.7-10.2 = 30552-6) Protein, Total 6.8 g/dL 6.0-8.5 (test code = 2885-2) Albumin (test code 3.3 g/dL 4.0-5.0 L = 1751-7) Globulin, Total 3.5 g/dL 1.5-4.5 (test code = 82487-2) A/G Ratio (test 0.9 1.2-2.2 L code = 1759-0) Bilirubin, Total 0.7 mg/dL 0.0-1.2 (test code = 1975-2) Alkaline 140 IU/L 48-121 H Phosphatase (test code = 6768-6) AST (SGOT) (test 14 IU/L 0-40 code = 1920-8) ALT (SGPT) (test 21 IU/L 0-44 code = 1742-6) [facility] Description: Comp. Metabolic Panel (14)2020-10-30 01:58:00 Test Item Value Reference Range Interpretation Comments Glucose (test code 50 mg/dL 65-99 L = 2345-7) BUN (test code = 52 mg/dL 6-24 H 3094-0) Creatinine (test 2.04 mg/dL 0.76-1.27 H code = 2160-0) eGFR If NonAfricn 38 >59 L Am (test code = mL/min/1.73 16911-8) eGFR If Africn Am 44 >59 L [facility] currently (test code = mL/min/1[place]73 [place] [address]-7) compliance with the current recommendations of the [employer]. [facility] [place] will update re porting as new guidelin es are published from the NKF-ASN Task force.
<br/ >Perfor med by:
[facility] [place] Kaur (HD)

BUN/Creatinine 25 9-20 H Ratio (test code = 3097-3) Sodium (test code = 142 mmol/L 482-184 9893-2) Potassium (test 4.1 mmol/L 3.5-5.2 code = 2823-3) Chloride (test code 103 mmol/L 96-106 = 2075-0) Carbon Dioxide, 27 mmol/L 20-29 Total (test code = 2027-) Calcium (test code 8.8 mg/dL 8.7-10.2 = 38574-9) Protein, Total 6.8 g/dL 6.0-8.5 (test code = 2885-2) Albumin (test code 3.3 g/dL 4.0-5.0 L = 1751-7) Globulin, Total 3.5 g/dL 1.5-4.5 (test code = 74827-8) A/G Ratio (test 0.9 1.2-2.2 L code = 1759-0) Bilirubin, Total 0.7 mg/dL 0.0-1.2 (test code = 1974-2) Alkaline 140 IU/L 48-121 H Phosphatase (test code = 6768-6) AST (SGOT) (test 14 IU/L 0-40 code = 1920-8) ALT (SGPT) (test 21 IU/L 0-44 code = 1742-6) [facility] Description: Comp. Metabolic Panel (14)2020-10-30 01:58:00 Test Item Value Reference Range Interpretation Comments Glucose (test code 50 mg/dL 65-99 L = 2345-7) BUN (test code = 52 mg/dL 6-24 H 3094-0) Creatinine (test 2.04 mg/dL 0.76-1.27 H code = 2160-0) eGFR If NonAfricn 38 >59 L Am (test code = mL/min/1.73 23138-4) eGFR If Africn Am 44 >59 L [facility] currently (test code = mL/min/1.73 [place] [address]-1) compliance with the current recommendations of the National Kidney Foundation. [facility] [place] will update re porting as new guidelin es are published from the NKF-ASN Task force.
<br/ >Perfor med by:
[facility] [place] (HD)

BUN/Creatinine 25 9-20 H Ratio (test code = 3097-3) Sodium (test code = 142 mmol/L 391-816 9363-2) Potassium (test 4.1 mmol/L 3.5-5.2 code = 2823-3) Chloride (test code 103 mmol/L 96-106 = 5-0) Carbon Dioxide, 27 mmol/L 20-29 Total (test code = 2027-) Calcium (test code 8.8 mg/dL 8.7-10.2 = 42305-7) Protein, Total 6.8 g/dL 6.0-8.5 (test code = 2885-2) Albumin (test code 3.3 g/dL 4.0-5.0 L = 1751-7) Globulin, Total 3.5 g/dL 1.5-4.5 (test code = 30729-3) A/G Ratio (test 0.9 1.2-2.2 L code = 1759-0) Bilirubin, Total 0.7 mg/dL 0.0-1.2 (test code = 1975-2) Alkaline 140 IU/L 48-121 H Phosphatase (test code = 6768-6) AST (SGOT) (test 14 IU/L 0-40 code = 1920-8) ALT (SGPT) (test 21 IU/L 0-44 code = 1742-6) [facility] Description: Comp. Metabolic Panel (14)2020-10-30 01:58:00 Test Item Value Reference Range Interpretation Comments Glucose (test code 50 mg/dL 65-99 L = 2345-7) BUN (test code = 52 mg/dL 6-24 H 3094-0) Creatinine (test 2.04 mg/dL 0.76-1.27 H code = 2160-0) eGFR If NonAfricn 38 >59 L Am (test code = mL/min/1.73 45759-8) eGFR If Africn Am 44 >59 L [facility] currently (test code = mL/min/1.73 [place] [address]-6) compliance with the current recommendations of the National Kidney Foundation. [place] will update re porting as new guidelin es are published from the NKF-ASN Task force.
<br/ >Perfor med by:
[facility] [place] (HD)

BUN/Creatinine 25 9-20 H Ratio (test code = 3097-3) Sodium (test code = 142 mmol/L 475-865 7422-2) Potassium (test 4.1 mmol/L 3.5-5.2 code = 2823-3) Chloride (test code 103 mmol/L 96-106 = 5-0) Carbon Dioxide, 27 mmol/L 20-29 Total (test code = 2027-9) Calcium (test code 8.8 mg/dL 8.7-10.2 = 39830-3) Protein, Total 6.8 g/dL 6.0-8.5 (test code = 2885-2) Albumin (test code 3.3 g/dL 4.0-5.0 L = 1751-7) Globulin, Total 3.5 g/dL 1.5-4.5 (test code = 08543-7) A/G Ratio (test 0.9 1.2-2.2 L code = 1759-0) Bilirubin, Total 0.7 mg/dL 0.0-1.2 (test code = 1975-2) Alkaline 140 IU/L 48-121 H Phosphatase (test code = 6768-6) AST (SGOT) (test 14 IU/L 0-40 code = 1920-8) ALT (SGPT) (test 21 IU/L 0-44 code = 1742-6) [facility] Description: Comp. Metabolic Panel (14)2020-10-30 01:58:00 Test Item Value Reference Range Interpretation Comments Glucose (test code 50 mg/dL 65-99 L = 2345-7) BUN (test code = 52 mg/dL 6-24 H 3094-0) Creatinine (test 2.04 mg/dL 0.76-1.27 H code = 2160-0) eGFR If NonAfricn 38 >59 L Am (test code = mL/min/1.73 95228-1) eGFR If Africn Am 44 >59 L [facility] currently (test code = mL/min/1.73 [place] [address]-5) compliance with the current recommendations of the National Kidney Foundation. [facility] [place] will update re porting as new guidelin es are published from the NKF-ASN Task force.
<br/ >Perfor med by:
[facility] [place] (HD)

BUN/Creatinine 25 9-20 H Ratio (test code = 3097-3) Sodium (test code = 142 mmol/L 543-619 8278-2) Potassium (test 4.1 mmol/L 3.5-5.2 code = 2823-3) Chloride (test code 103 mmol/L 96-106 = 2075-0) Carbon Dioxide, 27 mmol/L 20-29 Total (test code = 2027-) Calcium (test code 8.8 mg/dL 8.7-10.2 = 46809-9) Protein, Total 6.8 g/dL 6.0-8.5 (test code = 2885-2) Albumin (test code 3.3 g/dL 4.0-5.0 L = 1751-7) Globulin, Total 3.5 g/dL 1.5-4.5 (test code = 17061-5) A/G Ratio (test 0.9 1.2-2.2 L code = 1759-0) Bilirubin, Total 0.7 mg/dL 0.0-1.2 (test code = 1975-2) Alkaline 140 IU/L 48-121 H Phosphatase (test code = 6768-6) AST (SGOT) (test 14 IU/L 0-40 code = 1920-8) ALT (SGPT) (test 21 IU/L 0-44 code = 1742-6) [facility] Description: Comp. Metabolic Panel (14)2020-10-30 01:58:00 Test Item Value Reference Range Interpretation Comments Glucose (test code 50 mg/dL 65-99 L = 2345-7) BUN (test code = 52 mg/dL 6-24 H 3094-0) Creatinine (test 2.04 mg/dL 0.76-1.27 H code = 2160-0) eGFR If NonAfricn 38 >59 L Am (test code = mL/min/1.73 96819-2) eGFR If Africn Am 44 >59 L [facility] currently (test code = mL/min/1.73 [place] [address]-3) compliance with the current recommendations of the National Kidney Foundation. [facility] [place] will update re porting as new guidelin es are published from the NKF-ASN Task force.
<br/ >Perfor med by:
[facility] [place] [facility] (HD)

BUN/Creatinine 25 9-20 H Ratio (test code = 3097-3) Sodium (test code = 142 mmol/L 379-675 8294-2) Potassium (test 4.1 mmol/L 3.5-5.2 code = 2823-3) Chloride (test code 103 mmol/L 96-106 = 2075-0) Carbon Dioxide, 27 mmol/L 20-29 Total (test code = 2027-) Calcium (test code 8.8 mg/dL 8.7-10.2 = 56725-6) Protein, Total 6.8 g/dL 6.0-8.5 (test code = 2885-2) Albumin (test code 3.3 g/dL 4.0-5.0 L = 1751-7) Globulin, Total 3.5 g/dL 1.5-4.5 (test code = 88287-2) A/G Ratio (test 0.9 1.2-2.2 L code = 1759-0) Bilirubin, Total 0.7 mg/dL 0.0-1.2 (test code = 1975-2) Alkaline 140 IU/L 48-121 H Phosphatase (test code = 6768-6) AST (SGOT) (test 14 IU/L 0-40 code = 1920-8) ALT (SGPT) (test 21 IU/L 0-44 code = 1742-6) [facility] Description: Comp. Metabolic Panel (14)2020-10-30 01:58:00 Test Item Value Reference Range Interpretation Comments Glucose (test code 50 mg/dL 65-99 L = 2345-7) BUN (test code = 52 mg/dL 6-24 H 3094-0) Creatinine (test 2.04 mg/dL 0.76-1.27 H code = 2160-0) eGFR If NonAfricn 38 >59 L Am (test code = mL/min/1.73 12317-4) eGFR If Africn Am 44 >59 L [facility] currently (test code = mL/min/1.73 [place] [address]-1) compliance with the current recommendations of the National Kidney Foundation. [facility] [place] will update re porting as new guidelin es are published from the NKF-ASN Task force.
<br/ >Perfor med by:
[facility] [place] [facility]aur (HD)

BUN/Creatinine 25 9-20 H Ratio (test code = 3097-3) Sodium (test code = 142 mmol/L 812-549 2476-2) Potassium (test 4.1 mmol/L 3.5-5.2 code = 2823-3) Chloride (test code 103 mmol/L 96-106 = 2075-0) Carbon Dioxide, 27 mmol/L 20-29 Total (test code = 2027-) Calcium (test code 8.8 mg/dL 8.7-10.2 = 30798-3) Protein, Total 6.8 g/dL 6.0-8.5 (test code = 2885-2) Albumin (test code 3.3 g/dL 4.0-5.0 L = 1751-7) Globulin, Total 3.5 g/dL 1.5-4.5 (test code = 46976-5) A/G Ratio (test 0.9 1.2-2.2 L code = 1759-0) Bilirubin, Total 0.7 mg/dL 0.0-1.2 (test code = 1975-2) Alkaline 140 IU/L 48-121 H Phosphatase (test code = 6768-6) AST (SGOT) (test 14 IU/L 0-40 code = 1920-8) ALT (SGPT) (test 21 IU/L 0-44 code = 1742-6) [facility] Description: Comp. Metabolic Panel (14)2020-10-30 01:58:00 Test Item Value Reference Range Interpretation Comments Glucose (test code 50 mg/dL 65-99 L = 2345-7) BUN (test code = 52 mg/dL 6-24 H 3094-0) Creatinine (test 2.04 mg/dL 0.76-1.27 H code = 2160-0) eGFR If NonAfricn 38 >59 L Am (test code = mL/min/1.73 43759-6) eGFR If Africn Am 44 >59 L [facility] currently (test code = mL/min/1.73 [place] [address]-3) compliance with the current recommendations of the National Kidney Foundation. [facility] [place] will update re porting as new guidelin es are published from the NKF-ASN Task force.
<br/ >Perfor med by:
[facility] [place] (HD)

BUN/Creatinine 25 9-20 H Ratio (test code = 3097-3) Sodium (test code = 142 mmol/L 943-774 7535-2) Potassium (test 4.1 mmol/L 3.5-5.2 code = 2823-3) Chloride (test code 103 mmol/L 96-106 = 2075-0) Carbon Dioxide, 27 mmol/L 20-29 Total (test code = 2027-) Calcium (test code 8.8 mg/dL 8.7-10.2 = 82601-3) Protein, Total 6.8 g/dL 6.0-8.5 (test code = 2885-2) Albumin (test code 3.3 g/dL 4.0-5.0 L = 1751-7) Globulin, Total 3.5 g/dL 1.5-4.5 (test code = 48924-1) A/G Ratio (test 0.9 1.2-2.2 L code = 1759-0) Bilirubin, Total 0.7 mg/dL 0.0-1.2 (test code = 1975-2) Alkaline 140 IU/L 48-121 H Phosphatase (test code = 6768-6) AST (SGOT) (test 14 IU/L 0-40 code = 1920-8) ALT (SGPT) (test 21 IU/L 0-44 code = 1742-6) [facility] RIGHT COMPLETE 3 [id number] 11:29:[address] [facility] : 1975 Sex: MRight hand, 3 viewsLocation code: [id number] HISTORY: Pain in second finger of right [...] Sylvester Case MD 10/29/2020 11:29 AM CDT [id number] OBTAINED CULTURE + GRAM [id number] 15:17:00 Test Item Value Reference Interpretation Comments [...] No organisms seen (BEAKER) (test code = 224561) SURGICALLY OBTAINED CULTURE + GRAM [id number] 14:58:00 Test Item Value Reference Interpretation Comments [...] No organisms seen (BEAKER) (test code = 674992) Tissue [id number] 09:25:00 Test Item Value Reference Range Interpretation Comments Case Report (test code Surgical Pathology = 104) Report Case: [id number] Authorizing Provider: Laura Nguyen MD Collected: 09/26/2020 07:56 AM Ordering Location: [address] Med/Surg Received: 09/26/2020 08:55 AM Pathologist: Hilda Mack MD Specimens: A) - Soft Tissue, Debridement, LEFT FOOT BONE CLEAN MARGIN. B) - Bone, LEFT FOOT 5TH METATARSAL HEAD. DIAGNOSIS (test code = [id number] 3220) FuZzEwMzNcZnRuYmpcdWMx IHtccnRmMVxlcGljOTIwMl kitwMxHNTioCUhH7Ruawzg GDitYX2dOS1mvIzikJXujZ MiVTZmCuUua6cpl466uRUg r8jaCYTOkzxhkHr7cKzgU1 1ke8O2JxbeO80goAIkKAhx bGFpblxmczIwIEEuIEJPTk SrSErGQzVdNx4QIBGVVERV ViGAZXNSZU5eLGRBJ6PDXU abxBGyMIKjKB9hGg7KPAJR LwUzJzbDDg6PX59ZYWMSVO NALQSMN4AODZikTuOPBEJR BlIqGf9BTTJVLCGGTM3HHC VPTVlFTElUSVNccGFyXHBh ouOGTzUKF55QZKBXYTAFYL GZJ1WxGBULPL4FCJVWWHUR LDnfTYJATYgkUI4UHPSUSB zTRmkkbYEaTXOeUY7eUJAE FBZtJZ2SIHZPGg2TRQIlA4 DFLY7SNFYWSTTGKlNfwLPh zDqjbqSlZStfp9NwXEghGR BsAA3soTqpENLuFK6nXXVe V4ylqQ4fnvz0FyHbFMDqQe D0SPWxkpJ6Rjt6HFMgXOic g6kvs3QzWOOaMRe4zNrsLb FuVBEvp0afglEhUjKnHQUk PZInVTIewRBjU892f2xxr1 sqfsSphHJ3OUVcXRC0SGmf qzNvbzW1EVjxsCZsAyX2GG tccmVkMFxncmVlbjBcYmx1 LZAnN376GXS6zTxiv3mmOD C9TQVmKHPvMiRzOq5aaZLj Q186WDMcLJTQYMDvdXa6DZ FoetSkgnWaiYPVq222Y029 l5iqTYCvymTqhJrSczrko0 gkQ361SGUgrJEuxpEfDlKb SKVnwPEhsSP1LONgTD4mis idFHmlZAvgCBBgeqS8YQWd pMSaQ7WdXFQqGI1uehvbPS V2PTfqHIFeNLZ3SiSbVYEv p4Xnofa3VxOxdz6pbr03QH I7l4MqkBkwVSQ9EMA2GaVz Vp5icNFpPQRmBY4rGdPnqM WqBLDjyt28jTwuPBfrBFW0 ACPpskJvq9Mto8efPcPvrw CvB3alX9TeUZRnYLHjPVYf SkTvsaIil3Tux8IrdTDndM s0x5hjBAItDUXwgVmli1zt ISS8PYCymNBbT3dciG8oZQ AuFM7ygphtj9ahATzfODoo XWMweNC2fmZ9ZURikOMyA0 VhvK5fHKMsFLerXBGzvbp1 JxUfPa2baGOxbUozYJxqIz twYWdlXHBnbmNvbnRccGdu ZGVjXHBsYWluXHBsYWluXG YwXGZzMjRccWxcbGFuZzEw MzNcaGljaFxmMVxkYmNoXG QaGJwzS0pzKyYvUlQhRco1 QJWceTBcVFQgZbq3XLRtjK EzIYRRqBdlfQ4sBESubLme lW8iwAD6EIAzlzLfuFHTfB 9xAVPHwE5tMwUxTOJqRfC4 LTcxNjNccGFyfX0= CPT Code(s) (test code b5utzOJbPWIlpKI0FjYhRU = 3357) Xua5oxc4EnqZDlqKLdAFbx rTBmztCzmv58zVJ7lA68UB 2jXDHaQsP4FASntmI0Emh2 DUMhGJSlrOJxD371c6cww3 ijhgKqhNQ3kAypNSIpJPDl YWluXGZzMjAgODgzMDUgWD NqGUi5OtLbRTkvBATiko5= CLINICAL HISTORY (test p1aabWSuNAFlxWH9DwTqMT code = 3356) Jwp7dfl1DqwPYwqNDpMChp iOSnaaFhzg44cNS6oB79YO 8vUVKiPvZ7WEDnboE0Oyb6 MCJxIHHflNAmW629l0zjz2 oucqCnpNI7dMyaPXKhIPHi CYxdBOZqRlGoAJwhBgS8gL MpgGvnGLVsq2RqoZRnnBIr p215EDVtn47kvMD8AQJpb2 v7yPLjwJZgNGCrkxEmVPtc hPE4vvAndDQpiL1eqU4lNI PsxDdaIdGry80foEEvh90p VEKpm3EgC0wexSSfSKIgnm Rdb2FvUr3atUljyM7oyZDn eFMjKEIpdCcwINOfl5JzW4 UgXHBhcn0= SPECIMEN SOURCE (test a5ilvSHzGEThaIV3QxYdZV code = 3377) Xgh3kkw1GbySQsvTBjRKhi iJPgbcGfjd56gJT1yE67OA 5zZYYdMmJ7KDOuwnY3Vxi0 NHDqYCGyxTCiD161h0elx4 tjzgVnhGA5rRhaUUEyAKQt ZNywHNJkNbToGH8zM47iiR N3lAOjbONcOLMaSiFjEVMt KM09PkQWXeJKi15tLNbsVZ J9 GROSS DESCRIPTION (test i3zyxJHmQXMnpBV9UeVcBW code = 3366) Wro5bfg0AiyFPfmRVmAKaf nXQfelQesx37zSG5oR63MN 5uIPDxSqW3IUJhzrV4Dlp4 SVRlYPXjhZTaQ400g7xtp3 qkgnIsgXK3kIrvHJZeMPUu QIlzIGChSyGvTJ2kDWryKK KzFKYssLPbUXxcYEWaO4Se keWnNYapVWSgC35oiEDpqq GrHLlwnEznWi5ssVCrxP7e dSGxCIsaEJM6qYZdDGV5if HuSFOeDN02TOmpHX99mWAe NSGhKNMhTUVbd70ksCD6wZ ZlaXQvOPAvRcSxVJBmHY60 Ng8pHMBvN25on0jgnHKvz9 LxCWCdNBrvVG00INzjCJ1e VBAdXFRfFWsrXX59WK6yKF Gbne86zZg6WYI1zHZziZHj y9ezK5vpqNAzVv1fMXpyeC NunBKkDmNOpXFuvYN8TAVx lJ1gDZWeEKZ6GJZbfItvuC UxDMLlYYdfeWMiN1N0hH4z GgStWNTnobnxODEpOj3zEL hlIHNwZWNpbWVuIGlzIHJl C4YsqmRsLHhtHTCtP24msJ BsgfNkCDfogWikBc8ikIVe yA3fsRGvHHieCBJ7vXBfZO N8uuGdTJAjQT55XFbxFO34 zPQhIFOwAMEzFRUlUs8rBZ IaHIl6CWQippXbs2KiSP5l WPOqOA43ZFpsOXB3BQZfK4 2yHkCpL51pyqGeb6ZgCk3d NVK0eCLoRTYbqItmfLqwnp NkFSS0tThoL3OoSPSrx7Ks SDNaC5Imx12xVUIlutDxm8 NunDb2oCMbSXflMWMzVVIn qSZzSPWqT3QeJ4fnnPUjkL fkvf7aDOQyO9DmTZVnjg1= MICROSCOPIC DESCRIPTION e5snsJVtBXSayPS0YiTrWK (test code = 3371) Qno7fpw4GbiQRhpFDeKDzi vQGpcfWprx98oYB6gP26FY 2wVEEtLpB0HOUslnO1Cwl6 ABCrLDSviUWrA836v5fto2 richNthHU9pWdgQLWwQNGk ADteKEBaJnEbNJ5ARhLZBX Zsl5PzCZZcLJsmTBV9 Gross assessment was [facility] [place] performed at (test [facility], Department = 2777) of Pathology, [address] [place] [address], [place] [address], Technical component was [facility] performed at (test code [facility], = 6825) Department of Pathology, [address] [place] [address], Professional component [facility] [place] was performed at ([facility], Department code = 2779) of Pathology, [address] [place] [address], [place] [address], [facility] [id number] 09:25:00 Test Item Value Reference Range Interpretation Comments Case Report (test code Surgical Pathology = 104) Report Case: [id number] Authorizing Provider: Laura Nguyen MD Collected: 09/26/2020 07:56 AM Ordering Location: [address] Med/Surg Received: 09/26/2020 08:55 AM Pathologist: Hilda Mack MD Specimens: A) - Soft Tissue, Debridement, LEFT FOOT BONE CLEAN MARGIN. B) - Bone, LEFT FOOT 5TH METATARSAL HEAD. DIAGNOSIS (test code = k5xggMNwMJUhq0cwPECpnJ 3220) FuZzEwMzNcZnRuYmpcdWMx IHtccnRmMVxlcGljOTIwMl ntcpLtTUXovGLcK6Obzbjo LQsdCQ5lJM3kiPrqcGGxoQ PlSAKtXtCgg0uxf626zKQb x5pjLOKRzizcmMr0cVbyH3 8rq7T1HyebQ11dePLhBXmb bGFpblxmczIwIEEuIEJPTk YqQVpGNtVoQg6BIXLFGQAO YaTCAOIZDG2qYGHXZ2PKTA gqfGMwXTTyOM3nDm0TDJOI QpIdBmeNAb0TR09KREYPXR GFAGHIQ1KJEIoeMtOUUXCG KkLoBb2XYFGJIPANGF3LHL VPTVlFTElUSVNccGFyXHBh yyJYAvYIO25TVISSXGDYEJ JNS8HmVZHSQB0DMUAHSXCH AJlySGYCQWorYN6FFECGUW jUJbayoIVrGBMoRC1wNSOG RUWnQT7VBIBHPv5ZVPVlZ3 DGWB9JGEVSXZYOBkRnoQBg dFvoiaEzJDmzm4JaYAvuOS TrOI2fhZrbCPGdNY3fTADv J0hrzT1mujc1EfRfGSEsOw U4SEAvdnO9Wfe1QUTpGQsa s7uvs2MuQWQzEVk4jPujQw GgZLCuk2lzroQbAzGyQMQw LZHeKPKovGFlK295g7kud5 zlweYiuAC5HUHcJPA9QRhj zzBpbuA7GSifzBXrWhH3MJ tccmVkMFxncmVlbjBcYmx1 XWEtK130GZB5sAvgf8qqCY W2DTUfBVUoUsJkSd2elXRv H926LDKzZXYQMNIivJq9TY YkdwKazmYnzZIWw052B159 o0grICMmtdQmfCzVrlgzm1 ktI574JKUonIRenuSgVcZf JTGumMNtoXJ3JVWeQX3vyj giZNvrNNcpPLYxwcR3LYNk xZZgN0FeUMGlQE2hfpvySI B5XTtqYGDyCQW2JrCaRGZp m0Xbpgx6SvNhfp6gyb87ZK D8e0MlqIdrYIG7GGJ3TaCx Em0jpDHyFNDkIB6gMiNsoM XdALXifs22bXfqYNteWMI8 GECzrhIxj5Rwv7ezDiNggw NqW4knB4GxVPMyCMCjTLBl AsBpdmZev2Zqi1XyhTEjkR d7g2mlAUNmALBkxQtro7iz QLG8AMPmfJAvK6jitS5aUE OnUI5hxhvqe0cfABwwBNve IHAhvMZ0niS5DAJoxVZaK4 YabH8jERGpLQayZSYuzka1 SaNnJb3zyZJfkFgqYNodCw twYWdlXHBnbmNvbnRccGdu ZGVjXHBsYWluXHBsYWluXG YwXGZzMjRccWxcbGFuZzEw MzNcaGljaFxmMVxkYmNoXG FuOVgtT0stDkNuEaQqTpe8 JODwzPJmCKPxVlz9CZNszN LlKUAEqLlsdD8yGGJxgYmt hO9dnXC3AAMiudWmpGLOhO 8jWBURcI8tKhXfZCEeOtR8 LTcxNjNccGFyfX0= CPT Code(s) (test code w7anpVYzYCAtePD7UmRbKH = 3357) Lxw0jjy3DlbSKncGIdLFdl qNOnrtDlem85iBU2gN32VD 4gNBMgUjZ9HFUfsbY0Tzw9 ETNuFDWevLMdY900i2ibq8 lwduUxvBY8nYucCOAsWPBy YWluXGZzMjAgODgzMDUgWD KsRVi8HrRvDLccYVXtjk9= CLINICAL HISTORY (test y5wcuNYsTKWmlFD8FeHjUH code = 3356) Mdj3xdf6JljNZhjOJlZDmd zVMjfxIdfc49iAY9rL38UO 4cYVKmTyV8MBXjceR4Vyp4 GTFwUWStzGXjE238f3lay1 rchnKomQR3yNrqNIMyMPFa ZDzeHKZxWaXoOExuDkK7wK AedFqwHHBqq2RmiXFjbFUp u863TKOac17lvUL9DPZms8 r7cADwgONtWXKrwmIaUUpv fOO2gqZqaPTogX9mgV3tAC SngEdeYuRib14flJRab82p RXXup9ElA4adbBIxHQDocu Cyd4EdJm9ntSnjrP9aiMXp vZReXXKcbTsqEYWjs5IrG0 UgXHBhcn0= SPECIMEN SOURCE (test o5umsICvNQCxrNZ4HyOhPB code = 3377) Hmr1gmm1SebZIpxTKaJTzf tWUzwsIofl34sMB6nF75KP 8pOLQvJmZ0FTYvhiK4Jsu9 ZHHuOLUinENuF183m1uwh5 zpccQjxNL7jGigEHPbIYOc TVjlLPDkMgOcZS1sZ18mcZ O0dMIxeAXxFPPdPnJcLLMh YO67ZgZMMyZIj55jOYlxYV J9 GROSS DESCRIPTION (test f2ffjTNjYXVtgRR8VeFkVY code = 3366) Oqp3kzg3DduJPmaFHkXLyp jFUecnGkzf34iHU3zC98PE 1oIYEtItA8FDFrjyB8Xei8 HAHeFKJekSMfN919z7kfz6 qtrrUegWH0zBmfMIJsEJSv BOstURJlVoGhZP6xRXyqTU ZtRNFagOXoUAhqMWIxO3Av ttBxXDhxROMjX96vyXFmvy SaOLmjsMecIr0cfZOjdW1x gZUdAKelCRE8lYFsHQA7lp XiQZCvIA75QFzxBM89aTEl JPAaMHIiLRBqb76mrPF2dX HxnQNxKGNxPwPhWRHhSL38 Lx8iVPWeS89gl3hpfOVzw2 EaXONnHYmkTR57EXkiWM1j XMBoZAVtACjnJW47QW0qQZ Yhzq15lJi1KPZ0pDDghVNx x2msR7nlgDLqPv8mULxsjM NtaIMqJhAYqZDtyST6KFQn oE7vHMZhAVV8WVFgwJipfM LcBDYiPKwzmNEgD0Y4gM9o OeCrMYPmfrapRUDfEh8mPR hlIHNwZWNpbWVuIGlzIHJl U5FgkrEdDOmwDBAbM27ixY SlhiBsQCpyvDugTi5mzHEa sW3exNWtJVuiFCB9cHPpQP C0xxRjVXXqMG03GQxfJT99 lAZoIBHuDRJiLOOmUw0dHS KtFXp2WAGlfaOic3VfBG7l QEJgIJ29LKeaWMQ7SLGwH2 2wNtEsX03uapZba6DfEw4u ACE9gBXjETJuuKgpnAypkz ZcQUW9sWnwW8UvBSVpw6Ei YFKjI1Tfk06pXLMdyqDkr7 NgrBp6vTFySQrhRHWeTRNt tOFqLHEnG1JlZ6opzEPyaS ltvx9mATEvB8SmMKAphf4= MICROSCOPIC DESCRIPTION e4vwtHNkGCScsVM4ZgSwDP (test code = 3371) Bpx1zfq4LetTVqdHXpBVcf jCIsttBgrl85aNF5mA84DZ 8yXQXiLuM4PEZvjfS8Bdp7 TMVdMMRltPPrY859i3pdi7 vupsQrrUP9zAxaGNXbAPPi JBjuTJXjLpHmKE2YBhYSSB Xtf6JuNVNyCHarOPW2 Gross assessment was . [facility] performed at (test code Hospital, Department = 2777) of Pathology, [address] [place] [address], Technical component was [facility]' performed at (test [facility], = 2778) Department of Pathology, [address] [place] [address], Professional [address] [facility] was performed at ([facility], Department code = 2779) of Pathology, [address] [place] [address], [facility] [id number] 09:25:00 Test Item Value Reference Range Interpretation Comments Case Report (test code Surgical Pathology = 104) Report Case: [id number] Authorizing Provider: Laura Nguyen MD Collected: 09/26/2020 07:56 AM Ordering Location: [address] Med/Surg Received: 09/26/2020 08:55 AM Pathologist: Hilda Mack MD Specimens: A) - Soft Tissue, Debridement, LEFT FOOT BONE CLEAN MARGIN. B) - Bone, LEFT FOOT 5TH METATARSAL HEAD. DIAGNOSIS (test code = [id number] 3220) FuZzEwMzNcZnRuYmpcdWMx IHtccnRmMVxlcGljOTIwMl vkllPlLFGbjUWoN1Vfaoso NSyfUU9dMN5znIekzPIsoX YcTNHdWiLss0jos501xMJf e9jxWWWXoffchVp2qEkaI9 1kz0W8BbvrE47gkQEgYPbo bGFpblxmczIwIEEuIEJPTk MjIVoTOhRdHx9GEBKRSKHZ GdNPVKEXIE3dDAENW2NPVC jvxGSqHSKgJZ4cIo5HJADM VvXtRfpITz0LM52LGSHNMC HFJSKSP4MMGGjiQkVWMNWD SaXxWb7EZLWKSKPZZL2YIF VPTVlFTElUSVNccGFyXHBh iaDRQsZMM01INWELGXIXPO UJK1KxNVTZEA0UQIKPYMDK QPznFMGLWXbmCQ1PBOAOIW iGPridjTYeBUDsJN0dHTPD NLPsZA2LBKXMFw7LCXGwT4 NOFX3AVYXZKJLCXjWdgUSo bSipoyAtNNxpg0RySOuyMD KjJV4blNpcWGKcZU7bOSGu R2fnyN9zmiv7EhZqCRXrPl G1VJVdjbI1Dpk8SZIwWYkv m6sug0TuQKTvTGp9fEymZl QjUBVaf3ykevWpGfFrQNXq VWDvTPDrwUEkS766b6edz3 vjhyZcaUT0HCHdHXY1ENlw hqChwjI7BAoejMGpNfQ0ZX tccmVkMFxncmVlbjBcYmx1 EGNbL769FRM1sRswd8frDX A8HGLnLBShEoGiCu5cuEZb U053BAGeYVJNFAEuyPn8XR RasnJneoOthVFNt890P511 e3ulZCRyczMtiRbMcyojr3 mfA167WQPeeDHyrzVzBkTb FLBtoDNbxSD3QLVpZP1ath xrOOrrQOjaJAVgvdZ5KPLf pUXpS5AvAXArCB8ziidtNL L7FYxxOFPlFCE7HrKeDTTn l6Vmwyw7LsOkqj4kmi34UD C0e5CsoYytXLL7QIC8EpRy Dr5mpJBnAPFmLB2mJcWsaX GcNWXklw19dRftTJevHKC8 UYLqsePae6Owx1gwPhOkly EuH1vfO4OeNACqFUXpEGGq QuDaiyAmv4Yac1LrbOGzrW d4t1dnYEOoAJSlrDjnw2fg WUB3UPLkqTOcP6fuoN0xQB CrJX9fgiboc9zjAOvkFJdd VSDbpUK0vuW8NYRowQQqL1 GlxO3wGSBhWRxeOURzplu2 ZbNpHn7xrHYgkKkuLApcAs twYWdlXHBnbmNvbnRccGdu ZGVjXHBsYWluXHBsYWluXG YwXGZzMjRccWxcbGFuZzEw MzNcaGljaFxmMVxkYmNoXG BbXRwxC3wdSqMmDuObFwu9 VEEqkXUjKCXlFsl6CYHweH PkKIQGbOmhaR8nFCZsrDom vH9elBE3PUHxpjPsuIFZyU 2uJBGHeG9rZzFoKMXrUjP5 LTcxNjNccGFyfX0= CPT Code(s) (test code f6kawBNcGHSswDL7VgEiNJ = 3357) Bbz7gfx0FyzJDqlHGgOQhi dEXrjpLqwg73xDD5hX48CB 9zOKGeJdD4EHXlweI5Bja9 MZOqNCKdeUPjE220u8xwb4 jtxnRnzDB3lRztKZHfBBJq YWluXGZzMjAgODgzMDUgWD DfYVp1LlNwOFdeJRDupr4= CLINICAL HISTORY (test v0cgmBLsHQKjrJG1SdAxUZ code = 3356) Yis5jkw1ByvABbcAEpFDaf oFFwlpPqmy38dJL2fP35KD 5qCDUlVuW3HPWqmsO8Nte1 KFJiYVLytXSmD969f7srs6 cougRxiUS5fNfnYKUxFPDu JRinBSWdAtCbZUjbFwC8yP RmfPruHRLih8QacIBtuTHc d994YXMjz37cdEL3ATOmz6 n9gTTuoRNqJBHjjqHbTTon nYN3azPicTWzbJ5ubY7jCQ OqkUelFhHfb81mtBTnh91h RSEgk7AdC9qcgHHdXSZdxy Vze0BqDx9qiXycuF9qePLd sUUmOHHjhMhwGIHju3BmU2 UgXHBhcn0= SPECIMEN SOURCE (test m8yyxEHjKACexTX3GrVxAJ code = 3377) Foo6dsc3NseXZrhUSrWBac aRXknzUudq61rEP0zR37RT 7lVDLvMdG4HYKdetB1Ybk7 PUJqAPMouULmG358a5xsv2 dcbzRswQG1rUzsYPBeUPMq RSrxEKMbNfTbUZ3wF58syX Y4vKQtxDFuTUTiEtGiOAHm MZ66JxBAOyHKz88vORwfRS J9 GROSS DESCRIPTION (test o5eyrRArSYFrpTT8MwYlRA code = 3366) Vyc4nzh0HuaINxlKJvBEdm wOUiylFuxi71uLB7nE04EN 4jFBHtIvA9PZYvnrQ1Dwg9 ZQWgJNVtyCOoN222x8ykf4 uqmqZcpCO7sVtiFKPfYVPj GSrhECCvHrEgHD9nYGkeFI IbYKJzaAYrMIygQJShQ1Gr pnYyYNmfIXCoL40caVKvoh RdOXssjYzuFb4vtHWphU5p dQZtJZfcPLM8mXIlCAU6su GeGMXbDX30CZvwUI06vGQt CGYiGROdQXNzb40zzVX4lV BmcCUcOCCmIdHyRSFuBS87 Zi3zWHHgI31rw7wvfWDwh7 HpTFMcKWyrWS43ECalWB9l KJPjGGEvZPkvKY04HO3wAU Hkbm01zUq2SKC2bFTwvEQc p0xsR9mxhCJjUf5mHQsepX LcsRPxIxXLpUQlqBC6ELYm nW0bGKAfQFT1LSGfiBbcnM LjTSTmIPfkmSGrY4S4nE8i VpYqAOOapsiqAHGwAj2gXB hlIHNwZWNpbWVuIGlzIHJl Q3VvoyGpFOjfJGEkF08sdJ BzkyHiIUsbnRozPi7jjZEe mV6loFPwAOqzZJV4sGQvUD A8ksBoGEXuTZ71RCrqHN13 gRPoDXBiAVJlWAZbUc7oRY JuAIu2REPbpoWth8VgWR4v FPFuFK09AMneJXS4LCQxM4 5lDpSzU41rogXci0WkTq1l XPH2uEAvZPHnaCaxwWrmbv DlMRL7eXnqF6BtHMEvr7Yp TATdQ3Qzd02rIMLjidXtn1 TxsVr0pJDfQAmzEAEhYLMw uFDfTGBmI1BpB9nwmMRwnD kyvr9zMJHgI8SfWFEnks3= MICROSCOPIC DESCRIPTION m7vhsFAyWVBdoIQ7HrWeUA (test code = 3371) Mou4tqz7JadOBlhMSmAFpt qHLhdqSaju26eHN1uS58CI 5vNKJzEkA9ZXBohbE3Rwu0 USYpERDktOKsJ746t2nvr1 ldgvDewJH5qIehRFGpPIWq EGdjDXFePyYuUM1EVwHMVQ Qsn9RxIBJtQAmyNJA4 Gross assessment was [facility] performed at (test code [facility], Department = 2777) of Pathology, [address] [place] [address], Technical component was [facility]. [facility] performed at ([facility], = 2778) Department of Pathology, [address] [place] [address], Professional component [facility] was performed at ([facility], Department code = 2779) of Pathology, [address] [place] [address], [facility] [id number] 09:25:00 Test Item Value Reference Range Interpretation Comments Case Report (test code Surgical Pathology = 104) Report Case: [id number] Authorizing Provider: Laura Nguyen MD Collected: 09/26/2020 07:56 AM Ordering Location: [address] Med/Surg Received: 09/26/2020 08:55 AM Pathologist: Hilda Mack MD Specimens: A) - Soft Tissue, Debridement, LEFT FOOT BONE CLEAN MARGIN. B) - Bone, LEFT FOOT 5TH METATARSAL HEAD. DIAGNOSIS (test code = [id number] 3220) FuZzEwMzNcZnRuYmpcdWMx IHtccnRmMVxlcGljOTIwMl zlbkNzSZHitBQzB0Eiyaye WEbbAR1cRE6vsYaaaPXkmZ NpYNYiXjAdx9bgz996cHTj i2ifXMGAllsjsJd8oDiuG1 7hv3S9DfvoX11ddPYcAJqj bGFpblxmczIwIEEuIEJPTk GqZJtYIeQkVx1CZGASJJGB JaVXWFMYHC3gNRWSQ7MTQQ lswAWuIRQoVN7hJo0EOQFK SnVmVgkSWg8YH68IGXPIEV ROAUFOZ0DUVZztYcJMUWZD KvAwWl7UGUXGUMYHZH9KVX VPTVlFTElUSVNccGFyXHBh aeKILsFYU51LXUOTSLHJLL EJC5AlKYPLJO7ASMSPWYLX JBkyJRKOSFxhUQ3HKXGUAP wRJncsjVLfSAWdDM9rIFAA WPNxPS1NKBYIBi3RCBRuR4 DOZV4XLPBOLLAWFyRdvZCz aHaewpLaWYguw0SfIMbaOL NlVK3juXtiQNUpKC3aOPRs O1xleC6eqsm0OeLlBEPwJv F4FYZfuxU4Gkx1XYOpXLpd j9igv3McLALsOLm8pDmhWk VyFTOhg2odhsFcXmBnTQKk NBLtFHAzcMHxN168q3njy7 nmstVgdTI3HALtRFT0EQea lgQagvB1KLnfpNFiFrZ2SJ tccmVkMFxncmVlbjBcYmx1 XFInO782ZBT6oVsmm3rzMV P9KZIsWVEfBdFqOq3inJLg V527DYKcHOIWHPUwbOp3IN LibcIuisKfdOCSo567A710 h9viBALttjAvtNmKkthqy3 hqV602YJMmeKOszbVgXiTa PEQxpYRowFI1RECiWW0erz mcSMjoTNxcTIKkfcF2OSJl cBEbY3HcJFWlIX2fnqbjLT A0DVdhEWEwZLU3WjNoIZCl i4Jcslt7SxPhkg5any92EN Y2r2AseSkyXJL1PJX1TzEf Mb6pkCRnQCIhDY2xYoMcgT KgHDAdbo33wYfnCHesPIL9 AADtqiDqf9Lsq1kfHeUjxa QeU6huG2LeSUYdXQAdFOZs QwTdnyQmc9May8SseKNvgJ q4r2ghCSNaONXpnGcys8mv LOR7JKLbcSRdD9ymsO3zNC RnQH5dewrgg5fpRDyuWLui BSRjqCO0hvV0IUJdzKKsS8 WnhJ1dPXGoNQfzSHZtzyy4 EyBnOa5ndWLsmKptAVelYc twYWdlXHBnbmNvbnRccGdu ZGVjXHBsYWluXHBsYWluXG YwXGZzMjRccWxcbGFuZzEw MzNcaGljaFxmMVxkYmNoXG CgEHpfN2tbRuQkEhBcQzl3 QHPmpPNmGRObLjx4VWXdyC TaKXZYkCzmoC0vVTIpcRqj sR1tlWW6MYQibpYgeSGMkD 0mMAHFkT0pYqFcFRDbMeS4 LTcxNjNccGFyfX0= CPT Code(s) (test code o0ndlTMrYGSrjNE0LnFaQC = 3357) Xbj4flg4OuvEHblTAqEAuy pHMtrqWgpt77mSR4oP64LE 7tDADvMxW0BHQfphC4Ozj3 FUJyLWTywWHlV901v3xfj3 foiaRjvCH2gXahPMBnDPGd YWluXGZzMjAgODgzMDUgWD BuDMo1NrVvMYnjENHydp8= CLINICAL HISTORY (test j8jllZWoQULdfNG7DjNzQX code = 3356) Fyu5zmi1WhpFTfvBGrKLnj yHDtziEbhj84pVO6fD94HV 1dPYNnEnQ9OCKwjiD0Kbp1 PHFcGZHgoCZgC599j0pem1 gobhKctOA5bVuxUPBiZTTj EGgoALMfJxNnVGpbLuV4sJ TgnRmiUPSup0FbqZYscILi r072DBBsv89chTL0DZOkh3 b4vBEzeTYtMRFjwgCaPLkv sDC7oyQwvJTgzL6pmM4aIC UveQhfPhKpw26wmMMql50h XKGgc5VjO4qkyLPtTGGgoc Xio5PuEp8pdUhpsK1sgGKr uTRpBISbnXokAHOfg3PzV6 UgXHBhcn0= SPECIMEN SOURCE (test q1ojaIEiMOFyeCS5ArHtZH code = 3377) Olb3hti5ObpQGlgDPlBHjz yHWlmuJxyr33iCA3oE81MZ 4uTSStWqY4IJQhgpB7Jdm9 CSBpRRLtmECtP205n6phm7 fpapTqgRM9wJfqEYFaADZl OVeqGGHuOqJsVY0uC98olM S7fARanGAeLIKbQhKlTUQg FD42LuQXPyQGx69cANvmDP J9 GROSS DESCRIPTION (test c0ethPKyGZIgdLM4FxQzSX code = 3366) Tmg7sta7AfyTSiwNIgTChi uWMwnpKopc12mST0yI08JA 9uPVOxGtQ8JSOmtyD1Dse7 LYCoCWLvoCNxY868l7uqa3 alikArbCA7uOibAXToMWPr HKsxYKKfIjQkNR2yCYqaKT XaKMJkdLGhMJmsFGYaP1Ow yzHcRLseXVYyP05rkOCnxw BnJEncyWboCv2dgBFbmO9n fXMkUEtiJND8jHTrINN7mh SnRFAsTU95CPycKZ46rUMl KQCeYTPzZITcu13onYG3hU DoyEAgCLUbWpCfSWXqWN35 Gl8sTAAqB38lx2xlcOVbv4 NhYTNbFQvpEE67XPsxDN6z JYKcWDLaGVosZC78MK6hWB Zlqv42rMq9RTY5sFFrxAXi n3riN6whxFQtCb5pFHrmpW FafPPjFbIEaEGfdHJ5QSBl kV0sFGDlDUD5SJDcxHmbiB KlRIZhXCoorJCtR5X3tF6u RqQeJPQwkuibOODsEi7vDV hlIHNwZWNpbWVuIGlzIHJl E5UkeoOvLUdgQSVlR20zvC IvqzFtDAnkzMszHe9xcHZs nQ3lkTMyZDbySDN8wAStXY C9szFpWYIsQM54FQdzLL85 rDSzOZZbIWTpDNVkAl9zBA WmQCx3NRVmgeKwc9WpGD8a DDUiEI65FEukYVP5ABJuA3 3fZsHpZ17rcoVpe7LeOx4i XBH2lHBsRPUnaKbxiXayui RbAKV0sLukI0PoUWLiy1Fa JOLfP1Wkg06zSTHynzTtt1 YnvOt9vRUxYSirPRJeKNNc iPEnLWGaS2TvG5oqjGGwvR naxe6wCNQlO1GoECDmyh6= MICROSCOPIC DESCRIPTION c0exeZYmZUHwlVB9CcVnLQ (test code = 3371) Dic7jkq9IkzMMvvDCcQErt oJBjonClab83vEJ6rO91EC 6vCMYrZwD7YFJegkY5Dbh4 OTXeLHBsuCVkH492l4ghm6 zfxfMdgUI0oUfvZVPfGBOy NXvhAVKgKgKqJY1OPgLWVY Zmf4VwHARlXBihZDS2 Gross assessment was [facility] performed at (test code Hospital, Department = 6165) of [facility], [address] [place] [address], Technical component was [facility]. [facility] performed at (test code [facility], = 2778) Department of Pathology, [address] [place] [address], Professional component [facility] was performed at ([facility], Department code = 2779) of Pathology, [address] [place] [address], [facility] [id number] 09:25:00 Test Item Value Reference Range Interpretation Comments Case Report (test code Surgical Pathology = 104) Report Case: [id number] Authorizing Provider: Laura Nguyen MD Collected: 09/26/2020 07:56 AM Ordering Location: [address] Med/Surg Received: 09/26/2020 08:55 AM Pathologist: Hilda Mack MD Specimens: A) - Soft Tissue, Debridement, LEFT FOOT BONE CLEAN MARGIN. B) - Bone, LEFT FOOT 5TH METATARSAL HEAD. DIAGNOSIS (test code = k1xtkUZaDHFgg4yrBPOfjU 3220) FuZzEwMzNcZnRuYmpcdWMx IHtccnRmMVxlcGljOTIwMl ofqzWfVNHusVGcY2Beuhur KQowTE0wKL2fiOmdwYHydG McXKTkVpHmi3uxt790tNPi v5lnBNHGwcsujEz2wQobX6 7wd3A2FvyeO23ikFTjDCso bGFpblxmczIwIEEuIEJPTk UbZPfJZwClXm8WONBHKGVW SyTXSZUOEV0hWHMAC7AXVX vvgSRzYTZbSY6bUl3TNTUW AbKpWpkHCi0MP94ZOUGFNN UUVLIHW9ZPSOriDzEGIRII WdUtJt7YTULHNPWAHA3BRA VPTVlFTElUSVNccGFyXHBh axIEGuEMG70TTUNRRKWXNF RVA7XmUKJEFP6RPFMTBRAC EFoeIPJKWDwvBX1KQIYUTS eLNtkisQKiVJCgZM2bUITE TDFgUM5HAAQTGo5JYGWjP4 HDZD7TIYGMLQQKZgCffDCh aShzaiJfMNbui4LrZWsuJD MtLY9siEdhCSNySG6uRSDd O9msbO1hwwy1DvVdUASuFy H8LNIahhN9Uiv7RULeIKki v7kiz4LjWQAnNIl8gTnhMb SaEJFwr8acmiGtJbOpDHPb JEBpJTZyqNMtC026l0irl6 hpgtYxrSF8FMIyUHO2BPek keMyvmY7PHiotINjZnC9UQ tccmVkMFxncmVlbjBcYmx1 WTAyH220TWE7cKtju2lwKO D3YZFkNWIfWwTwNu4emAYk L209SJYeBZWONMAhfDy8ZR SbcsQgobKhsMETg745U137 e5xnBTSpmkAxbMeGiqzxs5 waQ102VOJlrWBrziHtNjAe GONfnSKxaJG7RDKcKU9dco pfDUluOQegRJWeuhO9JCFq eXYwH6EmRUYkYZ6ixjhyWE G1MAlzVUGmCBP2WjXzWLTg g7Gwrpn4SbLade4bkh10NM S2j9UotLjoOLZ2GWU0UyZm Ob1ivVLqOFIwHT2fFyJhtQ SuJCNdeu07lVhyIPpyYOB2 QMWgxsAyp0Jct7tzYpQyxt HpE8wnN0NpBTQoWNGjMSTl ObUiejFrv0Qnw7EzyBTuaX k0i5nqOCIiBTNwbRxak4ju TKX3IIMagWWoP4lnsT2uJX DiGX5ygpngs6qrEBgtIMva OBNrjHS9lbP8XCNapZMyK4 TyrR1nBRNiGHqoFSAouvo3 UtKhAp4kfIRnyTtyIUpvKc twYWdlXHBnbmNvbnRccGdu ZGVjXHBsYWluXHBsYWluXG YwXGZzMjRccWxcbGFuZzEw MzNcaGljaFxmMVxkYmNoXG DpSUbcS7shBnXoJfGkHsb7 LIKzjDZqLHCzYxe3PICejD ExNKAEzAizkV9mAQBvrRkq rY5mxXQ1KGSvdiGlcKIRkO 6cMWFLjU2iXnZgKYLjBcC9 LTcxNjNccGFyfX0= CPT Code(s) (test code l9hnuLKjUWXalAC3FtRaIR = 3357) Nzs7fkk3PrzZUpxQImCRxc nYUfypSozd35sSI6fI48LH 9uQBLoCeU8KMVhtjI0Zzw3 TIDvOPLicLWaC043y5gth1 nojoHfrFD5eNwbLHFiQPGa YWluXGZzMjAgODgzMDUgWD RfXKa1XnXhRRxkJRJotu9= CLINICAL HISTORY (test v5znxPTmIUAckLL9AaNxZI code = 3356) Dxd8ydg8BtjXUfcHGfSGjc qQEjcbGtmk99kCL7uK23JX 3gSDMaQfF0VDBikfC3Wfz5 BMGwRDDbdUDzV022k4bzp3 nfjwUiiJA0kVqdWXUtSWLu MWpiJLAeKxVhMAawTcV1iM RkgWykQQVpr2NwzZZlsXZf x689HJOsb58kbLH1CXUia8 t9rPUxsMPuPVHpwgDjSUco gNB2svDtbERplB7qnC3uEG NnaRinFiXlo46hjKHxc90c PFWzz4AjU4pogIQqLKGgwu Klq5XgCe9wvInmkL9fiQWf cZRoPZUjgAehSQPpe9ZdA0 UgXHBhcn0= SPECIMEN SOURCE (test f3gqoIHaCGTklTK7DqWyZW code = 3377) Iuz5vqf8FdyLZvgUTrHIwp cSCrxdRiec25aSI3wG34FW 3iRJMnFfE6HMLhqzW3Qkj8 ZUStAELlsYFwI219m0tpc2 lutvHmaDQ3zLwrATEaDTUt QBlsBCBjGfFaFW1jZ88ubD F8iTDmjNMhKEWhJdYpSMYi FM99TxBOQnUZa59pWIpfYY J9 GROSS DESCRIPTION (test d3lndPAvVPFpySP0ShFgWP code = 3366) Fdy6dbg1AitIHdfBKzYLxp zPFmndAjqd24rNU3sO43VW 4aVWJaHfL7RDUgxoK6Djo2 PDZyKSPcfXVdF710f9gzy9 famqQtfJZ6iIqkPJKkSWAr JTbrMLTmMsOwDA8aQOsaJC LfIVWpsNYuMUofOZTtH9Rd boMnXCrqSJYuL99udDTuvd JhOSubwIteSn4fzRBkiX8u qELgQPpyTCG4zCVwLHL2gx HwQHEsPJ20VOliBU64hMGx HGTpMSKdOTJnf81tgHC9nS UkxKOqMAZgZcZfJRRxCG62 Ts5iOTYxQ61lj1olzSQfh9 BjAPQhTHrlFA29AOktMI7k JCAbGOQoRHraNL57RM9eUY Jcox83fCw7RJL5dKQpqBHm y9skA6lexPDgId5xXOgrkZ FyoHVbRaIDrRQkiYD9JXUl pF6mTHEcLWU9KWHevOtmiU DtTDEuSZgeoMHpH2C5dC2a QnKaZVIlaraeZWFgXi0fSK hlIHNwZWNpbWVuIGlzIHJl T5KdfsXfLYhtLGQwH16onC PsqoZzWJcjbVeaOl1aqUYm gP0psPKrUTnsSJP3bYOfYU J9xpXhSUSxYM61QYvyMA17 tJJyBBMcILXbOILyKx4wJY FwBJz7KRNnbeYrd0AcOR2o ZNZkVL68CTpjQKU7GQYqZ1 5vGgUfM28rmtIvn0TpOe2m NEF5bBGhBKCovUjkwKgzmb VkGWE9dCoaT1KdWKFqv6Kj JAHeD7Wmc70pJUXuuwPio2 PzzGx4zVWhKTsmXCIfXIAl cKDqTLKpP3AfM4lbzDEuiP schq4zTPDkG5QrAHFtwy8= MICROSCOPIC DESCRIPTION j8dcjQMpQZXqxFH5TrKsRK (test code = 3371) Mxz4dse0LobRUutCGbOLyn zTZqtgJclc16uIK1xJ06MD 6lJRNwDpU5IHHeiqA6Ase1 OBRaGBXbeJZuL347x3ifz8 sfgcLdfIV7qBgnLUHsPQHe SXzsOSVjIoMgMH2PEtLLUX Dab0LeAHMtRYjuKSG3 Gross assessment was [facility] performed at (test code Hospital, Department = 2777) of Pathology, [address] [place] [address], Technical component was [facility]. [facility] performed at ([facility], = 2778) Department of Pathology, [address] [place] [address], Professional component [facility] was performed at ([facility], Department code = 2779) of Pathology, [address] [place] [address], [facility] [id number] 09:25:00 Test Item Value Reference Range Interpretation Comments Case Report (test code Surgical Pathology = 104) Report Case: [id number] Authorizing Provider: Laura Nguyen MD Collected: 09/26/2020 07:56 AM Ordering Location: [address] Med/Surg Received: 09/26/2020 08:55 AM Pathologist: Hilda Mack MD Specimens: A) - Soft Tissue, Debridement, LEFT FOOT BONE CLEAN MARGIN. B) - Bone, LEFT FOOT 5TH METATARSAL HEAD. DIAGNOSIS (test code = [id number] 3220) FuZzEwMzNcZnRuYmpcdWMx IHtccnRmMVxlcGljOTIwMl iunzUyUAMogUXiL1Uajuws CSvsRE6zCL5cvUdddGWbeC PjXSJoAkDoo9tpi664jNWu j8oxYRVWtenjvQw4eFleZ6 3ev5M1JhigU18ueOQyFGyf bGFpblxmczIwIEEuIEJPTk NsLYnONkPfLw3YLJVJNWDV HjUORIVOWI9sYYZHL6AQYJ gktKOuNVAuPT3dMr0VMFBX WfAeTcxVLg0EZ57VROKVID CVSMVPE3QUKKnrFgNYIVNZ GmYePm9EXIWGRHLTEL7XFP VPTVlFTElUSVNccGFyXHBh wsVVKlFBK78WDOFDSYSSQP EUY3XrNDIEDP9GRUMQIIPH EVnvJMBXUAqnYZ7OYURCEA rENczwoSWcNCXvNB3oXFDU PHUrQT2TVDYBXg6MCKFtM8 CIYZ0OBITMXVKLPwRsxXGt gHwbrdBaCRxww3ObKKkpZU FgPI2yiVpwPJAyWQ8dPQUz C0mgeZ3yiia4EhJiWUDuUj J1ANWwprT7Qzf5BBNrPPko z1xiq4ZyCFFwYBl3pYkvQm IoPAIii6qtngJvQxYkCFNx WUTcSIZkdRVyC004a7fek0 hjhzTcrFM4YVWmVFX5JKal nyIafxF5AYwbfHNwXiZ0YI tccmVkMFxncmVlbjBcYmx1 DAWaR619ENJ7nIqeo5lvBT C2RMTeHBCcKcJoXw2apMQq Z766RPPtWJFLCRTdhQk4NQ NstbLtfoXykRJCx858X324 g8uvAJNioqLceLnBqfbms1 ilU952RFXyuDJmrwOfIlXd XBKafKWrxXW2ZCSpMU2qdn sbCZtwHVynDJYzixP0MQUq yFLhN8FzIRPiKD0lysvkKA U8VLbfCKHvZRO6HjMgIGMo w5Thnlm3EjMvkt0ezu44RZ W5a3HahTcmKZX4GWD1LhBr Hx9elCPoCIFuFJ4kKxBbhI JlDJYfzc61gJaqVItrLZU0 SHZtdpDig9Uya2vhTvVucq RkX8cdO0HdPTIiHKKpJXOe AlLadtTdq3Ein4ZfqFAavH v1z7zgELGmYAOodTjrd1wi WGE9GDGibZXhY4xffJ1fFG ZrFB6guvcii2nuUTcsLHwj CFEknOC1ldZ6MYEkdTQqE3 VjtE2zPKNcPEcuWSUxrgd8 PsWbRr3miIZbnTlhNDmkGy twYWdlXHBnbmNvbnRccGdu ZGVjXHBsYWluXHBsYWluXG YwXGZzMjRccWxcbGFuZzEw MzNcaGljaFxmMVxkYmNoXG ViLMdnA0cgDiZbEvEeNai4 YCHzfABvQAEeUvr1FVFdqW BtRJDQfWsriU6tWKUscPqe cM0qcXS8TOKrxbUlfHYJyU 3nPMBZoK2nEwTgNHSeEwV6 LTcxNjNccGFyfX0= CPT Code(s) (test code p4amjPAnHNXviKE9TaChUF = 3357) Xyq2gev6UguNUwsRGmDQee qOHyyvWcaz78hWO0rW24IV 8cSSHnUyC3SIVsmqM7Hjn9 PTIhEEWksCXpV931p9vry4 coaxXuaCQ0oBtnUNKlFUKi YWluXGZzMjAgODgzMDUgWD XnPUp7TzEpYAyuBSFbsj8= CLINICAL HISTORY (test a5vmsNKiXRKwgMB4IbLpAV code = 3356) Swl3qhz4NscRExaTEoUFrj tSVxrqQwdm27iLX8mN23WU 0kWOVwHgP7OZGrvoU7Xjf8 KEJjCZHxySApV716a5xhz6 eyvuXqkKJ7fBfyCFDbMFHy SSlxQLTcFkMxNUscPqO4iO MtxYzvSXNap3IrgQNdrCHh t917YMWva23oiNE2OEVua0 e1gCJdkEKuLQEcquBfUVjw hWH6ksVpiJQnbG0iiW6oHY RaiTkcWrByc71doAKdv87n MNXdm9XtC5zmfPLhNSJoet Ywi5SbBf8twWwayX0icTUl rGSrAZRwoMhoKPKjs3DtF5 UgXHBhcn0= SPECIMEN SOURCE (test q8qphMTlRKLysJH2WtKpTU code = 3377) Khr6qta5WdwQMhpLWdXWmd aSCrkxVxtf91wZH5sN93ED 7kBSXeBrW8MCCogmR9Sqk4 YOUrWFSapBUgR135v2jne8 dxmjSmtXQ9mYsmEBFpXBCp DJusGOLcFwCbIH4yF27ehN K1pUPiiBPqNKNhDzBmWUOo ID70EsOPTsPCx47xIOapPI J9 GROSS DESCRIPTION (test d2zsjCVlADSjnCE9QeXeOH code = 3366) Teu6auo5FtpJTekTGyNTfm pWDzooAhji61wSV8aY81QP 4pEZDoGwM5ZEOjpqK6Hdn1 FLGeGNGvxLDiO077n4epp5 vvkhBtnSU0uRdvMNSeWDCb KYwnULYuRyIvYD4nQSrjJA MxKDUntNLcVYkrIKHcD5Nu xvSzDQauERHhN73ioQNvvp DbPOdcgZorSt8huAJtsX1s zNNzYFpvOSA0vQRrWOM4zo HtAFYyHF67SHfcZK23rHJo TWEhBVJjOUWkr65pyVN8zR VfiMWsWZLkQjEqJOAiYI88 Mt0pWXYpZ83sv7bfuSQlk4 EnUGAwKWgdUC32UZznTL5z HRQtDGWcGXtaKA29UU6oKY Bpte32yVr3KLY6sUQuqUSy s2dsL8twzPClOv0iTYpqcC FzkWCbZoGFdVDgxPB1ZDMs lO2kAGAmFGJ2ROOkzNjpvZ WzTTFnRLthuRDlC7H9dA2t MjUuCWJqfukmRIGaVa4nXY hlIHNwZWNpbWVuIGlzIHJl W8AxpnSzIFgpEFGtQ24unG PdvuZhVUogdIavHc8iiLIo sD9lkDBvRWrmYNP4wECrVP O3zeQpLRTcFS65HQeySE95 kTShDYRnAGZrKKBdPm6uPG XnJLj2YMTkacSlp5CpUD9f RTMvYU51ZByjHXJ4LKZyK5 4gReUsK75seaJwn3OjLm4f MDB7vGFnPZLutRumwPmjnb HhCHI2rWrpW3PqUFBvf7Jj MDVkF7Yfg50iOWRswpFjt3 AylIb9sWCrLJcvSEKcSHXm mCGmQLCmQ0WnK2rteETneF oshv7wMQVfZ7ClRLHzcz1= MICROSCOPIC DESCRIPTION c5mnfYMbIUAyjSI6FbEfJC (test code = 3371) Jvh3gno1LeeQYtnUEwCNhe lNOtdiUfxg59iHQ8zB77VK 7oBMDlVvT2UZIfqcY1Xqt5 XJLxERZmzBZlD952s2kmy6 lrkrUwtFP8yAzyMVTeBRUv WLmrRHKxMoJbLM9AOrBJTE Acs7CyKNJlJRurVHG4 Gross assessment was [facility] performed at ([facility], Department = 2777) of Pathology, [address] [place] [address], Technical component was [facility] performed at ([facility], = 2778) Department of Pathology, [address] [place] [address], Professional component [facility] was performed at ([facility], Department code = 2779) of Pathology, [address] [place] [address], [facility] [id number] 09:25:00 Test Item Value Reference Range Interpretation Comments Case Report (test code Surgical Pathology = 104) Report Case: [id number] Authorizing Provider: Laura Nguyen MD Collected: 09/26/2020 07:56 AM Ordering Location: [address] Med/Surg Received: 09/26/2020 08:55 AM Pathologist: Hilda Mack MD Specimens: A) - Soft Tissue, Debridement, LEFT FOOT BONE CLEAN MARGIN. B) - Bone, LEFT FOOT 5TH METATARSAL HEAD. DIAGNOSIS (test code = [id number] 3220) FuZzEwMzNcZnRuYmpcdWMx IHtccnRmMVxlcGljOTIwMl sstoFjHAPylWShN1Tuhnig RJgdLC9lCQ0vtFgtyAFqqH ZvAOOkOpUim3lbq470wYNx d0roHCKUdvlfcSt8gDieH3 6ea0I1FpilW82vgMRnUAcf bGFpblxmczIwIEEuIEJPTk UxORnTZnXvAu4MATZTKLLC CcIMBZJFFA1qNJILB3MPKT eymANcIVPuRJ5sVl1XUAOP CyGgMvtNMh4VQ34OCTOIPM UOFIPCU2ENITsuNtJDLPYF RdOnIg0SXMNYQLXXTB0SMY VPTVlFTElUSVNccGFyXHBh pgFSUiEHQ75IRZSCVFWGDU HSF1AaSTXNEJ3OBIRFESGC MBboGNYANGnmDF4SEQZIZX bJSkdrtAAvTHIjOA5jSOVO GKLtXM4PFGTYAh4QLWFxI0 TNLA8FLNLAKUHFRoHqwLEt uDkcduNbZDhks3OaHMvzLA MsZV3xdWvwTVGsOE5sYXAx N5cqgA0dloq6QuCmIZRmZn Q9QBGrueL8Pcv5EJZuTKbm o1khi5HtRRRtALc3gRtoSl DeZKUrp8fehgHvJaHhGDMg ZLEbNVUmzGBiK285m1fps5 vfsaLqlVK4RBViOGZ5BNln ezStagS4RCgjlICwHtS3WD tccmVkMFxncmVlbjBcYmx1 ARWkC755EGB3qTcfi2xiOD V9TEDmDOVbXfJsKl0ptZKk H731CMJwDREJZHLmtIc0BA DjsdBjweTctLVDo301B067 m1oeHCGcebYjoTdKzwhxt9 kuM634SDPmhKJkrgUpVgBz HKJezFRipCY1LPBxDL4nvi ooUZsqENocGOYhivZ8KNGq sFWkY3HdVZQqYG9hnbclCJ N1SRemMJDbOSZ3JcCfVWFl h5Darvo4GzZdfx3fhk52EF P3v5FjqIhmFFA1IHU4QaFn Be3peQAyKSSsTO8qGhFdsO XqGYAxjn02zYoxIBujPZJ4 OWJybtMcy0Won8fpIeFhvd UnA5rqH5BtNOSwMZZdMLFt EzNkyiPuo8Bbw4LarFWclC f4k1bnQXLhUZQezYyly3pr WXH2KUAdfZUfX4fvbN4iHW YnQA0csdulc4kiDTiwSJxy NTTmlVE0zeF7TMFxcZWqY0 LzqS8dTUUxPWjlNEIvkgn4 BcDgVr2iiGWudPicFBblZb twYWdlXHBnbmNvbnRccGdu ZGVjXHBsYWluXHBsYWluXG YwXGZzMjRccWxcbGFuZzEw MzNcaGljaFxmMVxkYmNoXG YuYZllS8fwJkIfVuXtGre7 XWCdaEFhKIZmCof1NTLxtT BcIXEJoQhfcW8gFDFxkNwe dT1mwUB8NYNhyuMzsWFFzD 4xGSPFkV6rWqAsGCMhWmW3 LTcxNjNccGFyfX0= CPT Code(s) (test code h4psdNSpWYAffPC7ZvEpME = 3357) Ahi1dbe0HfjSBjbQWwGDea sJAwyvWyxt79qSI4tC48JJ 5qVOSlMlD7YIVruoK3Hmy7 QAJqAGJthCYaZ958w6byc3 gmbiXffCF8bEkwYMFgMPEc YWluXGZzMjAgODgzMDUgWD EjXSl9TfRmKQbpMAGjgl4= CLINICAL HISTORY (test z1fwoODqDOBzvCL3BgWvDE code = 3356) Eqq4din2SyoLMrdZBsRBej eIXpnfTobv34fCV8aB73FS 0cNJJtWtI3DOEkevL1Ucd8 UHBeNCRctCVnQ848z3vkd4 kxhzBgaBU3sGubXIObSQOa BGieXGUnVqOeOSzsViA1rK IymCpmYTSiz8GdrMIweDBi f967UCWif57bvFB3LWDam0 t9fOQbcQVnZQCrfbJfNSgh dTW0hnEaxPMdxJ6fpR8tLD BrvCztGvAlb44uqFFfg57z DIHqh1JdV8ipzYNdFOLxva Ojq2VmOs6iaNsuiW6kyQUf cTEpETEsjPhfXYJgz0JuW9 UgXHBhcn0= SPECIMEN SOURCE (test x4dkhCEjOLMvuQV6WiOnKJ code = 3377) Nup1nix5RfzSBieGBxQOxe dFByamKwvd84xVD6sM48RN 2oCZHaXuW6CLFvjrA1Jhz3 TDWoVSEnlUXmV559o3orm2 kandUjcFP3mWqsEXYrQQFx FIxkVMGcXlBlYH5vU19krN G7pFLbdTNlHDSxVxVgBOLz WI84IgQYErHUz03pGVkjRS J9 GROSS DESCRIPTION (test o5cxxXKyWNUrkBC7FwAzLR code = 3366) Jdp9xyx5RhiNPngHAaLTxv xIVdlrTrdu87uSU5vS31XW 1uRTMxXkX5BRPsceY9Oaz1 YBAfUVYpzHDpC253e9fee4 xfzeGmwZS5lIwhKNWjQYGi WFgyRCSbZoYuEO1mWFzwQH OkRKTsdUEaYHvwHBWzS4Nl rdAwKMlxKTArS56dcKZlyd CtJZisqXrwSa7aqXJjnR9h vCMvKGftIND1lACtPWO7pi CsHRLjBC96ZJdsGK67xXVn WJDfMWXoJWLnv29jaPM7sZ GqsOJpQKMoJjZsIZWaAI90 Lq1hEVEdT23qa4gbiDKxa8 OxAIFrQIboWV09UCxeHX0m WZLhNOGzSAnbMT53PN0rFZ Lqra68cRi5BXN8tCSocJTr c2cgB9eelHRoAg2cFTcrrQ LmiIEcUvZBpUDljMM6ZQGq bQ8sULYpOTR2ZTOzqCatvO OwKHLlCQfsuTKkN8J7gN0s VvCgNMNadkvmWTGuMm9dSH hlIHNwZWNpbWVuIGlzIHJl G7HrqnZvOSauXBOnA39gfH QdjwKeONvigQylIq0iiHZs lO6muXXlZSulTLN9aQGcDJ F4lySeOYLnPE33COqvER81 bQWfNGDfDSFcKZCdEb9qVN CqMSc3YIRwzfHvd5LtBZ4h HQWyUJ43PBzxHWZ7TAPgV3 5sOpExH56amcTiv9EvHr3w VHI4sZVhSIJuwVwybGxphk NsBHW1tGiuQ4KwQBBmt9Ib TCFvA7Ait23rWSUrovNlv9 VseZi2xMVcSXmsYCPwXHCa vBTeOEQvZ8OtM3wxlEZuuE exjg1bTMHoX2ObLPJoez3= MICROSCOPIC DESCRIPTION m5tgiYWoZBRdjIP8IsKfXV (test code = 3371) Koo4khr2PktTDiqYVuHPfg gVQulfTvnj38vRZ1gW55SP 6mJBDaOoW6NCIhglY4Rjn9 TEXqTAIpnCHgS130u7oui5 ncmpYidDM8fUvdOQDzEAYz FSumXBYfIoScDW0CZyEDQX Dhh0BgMNCiDWxtVSG8 Gross assessment was [facility] performed at (test [facility], Department = 2777) of Pathology, [address] [place] [address], Technical component was [facility] performed at ([facility], = 2778) Department of Pathology, [address] [place] [address], Professional component [facility] [place] [facility] was performed at ([facility], Department code = 2779) of Pathology, [address] [place] [address], [facility] [id number] 09:25:00Surgical Pathology Report Case: [id number] Authorizing Provider: Laura Nguyen MD Collected: 09/26/2020 07:56 AM Ordering Location: [address] Med/Surg Received: 09/26/2020 08:55 AM Pathologist: Hilda Mack MD Specimens: A) - Soft Tissue, Debridement, LEFT FOOT BONE CLEAN MARGIN. B) -Bone, LEFT FOOT 5TH METATARSAL HEAD. A. BONE, LEFT FOOT CLEAN MARGIN, BIOPSY: - BONE AND FIBROCONNECTIVE TISSUE, NEGATIVE FOR ACUTE OSTEOMYELITISB. BONE, LEFT FOOT 5TH METATARSAL HEAD, AMPUTATION: - ACUTE AND CHRONIC OSTEOMYELITIS Signing Pathologist Direct Phone Line: [phone] signed by Hilda Mack MD on 10/01/2020 at 9:25 [id number] X2, [id number] H1Ifmmyjyk ulcer of left foot associated with diabetes [...] submitted in B1 after decalcification. [place]/Shyanne-B. Performed. [facility], Department of Pathology, [address] [place] [address], [facility], Department of Pathology, [address] [place] [address], [facility], [address] [place] [address], BCD-Glucose [id number] 12:31:00 Test Item Value Reference Range Interpretation Comments POC-Glucose Meter (test 178 mg/dL 70-110 H : No tified RN/MD: code = 1538) TESTED AT [place] [address] 478: Electric Razor Mechanic/Techni cornelia ID = [id number] for Salvatore Ramírez t Lab Interpretation (test Abnormal code = 30322-8) [facility] [id number] 12:31:00 Test Item Value Reference Range Interpretation Comments POC-Glucose Meter (test 178 mg/dL 70-110 H : No tified RN/MD: code = 1538) TESTED AT [place] [address] 478: Electric Razor Mechanic/Techni cornelia ID = [id number] for Salvatore Ramírez t Lab Interpretation (test Abnormal code = 19915-7) [facility] [id number] 12:31:00 Test Item Value Reference Range Interpretation Comments POC-Glucose Meter (test 178 mg/dL 70-110 H : No tified RN/MD: code = 1538) TESTED AT [place] [address] 478: Electric Razor Mechanic/Techni cornelia ID = [id number] for Salvatore Ramírez t Lab Interpretation (test Abnormal code = 29426-5) [facility] [id number] 12:31:00 Test Item Value Reference Range Interpretation Comments POC-Glucose Meter (test 178 mg/dL 70-110 H : No tified RN/MD: code = 1538) TESTED AT [place] [address] 478: Electric Razor Mechanic/Techni cornelia ID = [id number] for Salvatore Ramírez Lab Interpretation (test Abnormal code = 27493-7) [facility]-Glucose [id number] 12:31:00 Test Item Value Reference Range Interpretation Comments POC-Glucose Meter (test 178 mg/dL 70-110 H : No tified RN/MD: code = 1538) TESTED AT [place] [address] 478: Electric Razor Mechanic/Techni cornelia ID = [id number] for Salvatore Ramírez Lab Interpretation (test Abnormal code = 12624-3) [facility]-Glucose [id number] 12:31:00 Test Item Value Reference Range Interpretation Comments POC-Glucose Meter (test 178 mg/dL 70-110 H : No tified RN/MD: code = 1538) TESTED AT [place] [id number]: Electric Razor Mechanic/Techni cornelia ID = [id number] for Salvatore Ramírez t Lab Interpretation (test Abnormal code = 33211-9) [facility]-Glucose [id number] 12:31:00 Test Item Value Reference Range Interpretation Comments POC-Glucose Meter (test 178 mg/dL 70-110 H : No tified RN/MD: code = 1538) TESTED AT [place] [address] 478: Electric Razor Mechanic/Techni cornelia ID = [id number] for Salvatore Ramírez Lab Interpretation (test Abnormal code = 57684-1) [facility]-GLUCOSE [id number] 12:31:00 Test Item Value Reference Range Interpretation Comments POC-GLUCOSE METER 178 mg/dL 70-110 H : Notified RN/MD: TESTED (BEAKER) (test code AT [address] = 1538) [place] [id number]: Electric Razor Mechanic/Techni cornelia ID = [id number] for Cony Osborne Basic Metabolic [id number] 06:00:00 Test Item Value Reference Range Interpretation Comments Sodium (test code = 138 meq/L 937-587 0134-2) Potassium (test code 4.3 meq/L 3.6-5.5 = 2823-3) Chloride (test code 101 meq/L 98-106 = 2075-0) CO2 (test code = 31 meq/L 20-29 H 2027-11) BUN (test code = 54 mg/dL 10-26 H 3094-0) Creatinine (test 2.16 mg/dL 0.5-1.2 H code = 2160-0) Glucose (test code = 177 mg/dL 70-110 H 2345-7) Calcium (test code = 8.9 mg/dL 8.5-10.5 76285-5) EGFR (test code = 33 mL/min/1.73 [place] [address]-9) m NOT ACCURATE CREATININE CLEARANCE IN PREDICTING GLOMERULAR FILTRATION RATE . ESTIMATED GFR I S NOT APPLICABLE FOR DIALYSIS PATIENTS. ISSA (test code = Electric Razor Mechanic ID - ISSA) JBERNOperator ID - JBERNOperator ID - JBERNOperator ID - JBERNOperator ID - JBERNOperator ID - JBERNOperator ID - JBERNOperator ID - JBERNOperator ID - JBERNOperator ID - JBERN Lab Interpretation Abnormal (test code = 45205-9) [facility] Metabolic [id number] 06:00:00 Test Item Value Reference Range Interpretation Comments Sodium (test code = 138 meq/L 857-628 8562-2) Potassium (test code 4.3 meq/L 3.6-5.5 = 2823-3) Chloride (test code 101 meq/L 98-106 = 2075-0) CO2 (test code = 31 meq/L 20-29 H 9) BUN (test code = 54 mg/dL 10-26 H 3094-0) Creatinine (test 2.16 mg/dL 0.5-1.2 H code = 2160-0) Glucose (test code = 177 mg/dL 70-110 H 2345-7) Calcium (test code = 8.9 mg/dL 8.5-10.5 56669-3) EGFR (test code = 33 mL/min/1.[place] [address]-3) m NOT ACCURATE CREATININE CLEARANCE IN PREDICTING GLOMERULAR FILTRATION RATE . ESTIMATED GFR I S NOT APPLICABLE FOR DIALYSIS PATIENTS. ISSA (test code = Electric Razor Mechanic ID - ISSA) JBERNOperator ID - JBERNOperator ID - JBERNOperator ID - JBERNOperator ID - JBERNOperator ID - JBERNOperator ID - JBERNOperator ID - JBERNOperator ID - JBERNOperator ID - JBERN Lab Interpretation Abnormal (test code = 40347-7) [facility] Metabolic [id number] 06:00:00 Test Item Value Reference Range Interpretation Comments Sodium (test code = 138 meq/L 903-621 5873-2) Potassium (test code 4.3 meq/L 3.6-5.5 = 2823-3) Chloride (test code 101 meq/L 98-106 = 2075-0) CO2 (test code = 31 meq/L 20-29 H 2028-9) BUN (test code = 54 mg/dL 10-26 H 3094-0) Creatinine (test 2.16 mg/dL 0.5-1.2 H code = 2160-0) Glucose (test code = 177 mg/dL 70-110 H 2345-7) Calcium (test code = 8.9 mg/dL 8.5-10.5 16121-1) EGFR (test code = 33 mL/min/1.[place] [address]-7) m NOT ACCURATE CREATININE CLEARANCE IN PREDICTING GLOMERULAR FILTRATION RATE . ESTIMATED GFR I S NOT APPLICABLE FOR DIALYSIS PATIENTS. ISSA (test code = Electric Razor Mechanic ID - ISSA) JBERNOperator ID - JBERNOperator ID - JBERNOperator ID - JBERNOperator ID - JBERNOperator ID - JBERNOperator ID - JBERNOperator ID - JBERNOperator ID - JBERNOperator ID - JBERN Lab Interpretation Abnormal (test code = 20650-5) [facility] Metabolic [id number] 06:00:00 Test Item Value Reference Range Interpretation Comments Sodium (test code = 138 meq/L 458-373 3755-2) Potassium (test code 4.3 meq/L 3.6-5.5 = 2823-3) Chloride (test code 101 meq/L 98-106 = 2075-0) CO2 (test code = 31 meq/L 20-29 H 2027-9) BUN (test code = 54 mg/dL 10-26 H 3094-0) Creatinine (test 2.16 mg/dL 0.5-1.2 H code = 2160-0) Glucose (test code = 177 mg/dL 70-110 H 2345-7) Calcium (test code = 8.9 mg/dL 8.5-10.5 84909-8) EGFR (test code = 33 mL/min/1.[place] [address]-2) m NOT ACCURATE CREATININE CLEARANCE IN PREDICTING GLOMERULAR FILTRATION RATE . ESTIMATED GFR I S NOT APPLICABLE FOR DIALYSIS PATIENTS. ISSA (test code = [employer] ID - ISSA) JBERNOperator ID - JBERNOperator ID - JBERNOperator ID - JBERNOperator ID - JBERNOperator ID - JBERNOperator ID - JBERNOperator ID - JBERNOperator ID - JBERNOperator ID - JBERN Lab Interpretation Abnormal (test code = 10465-5) [facility] Metabolic [id number] 06:00:00 Test Item Value Reference Range Interpretation Comments Sodium (test code = 138 meq/L 476-249 2341-2) Potassium (test code 4.3 meq/L 3.6-5.5 = 2823-3) Chloride (test code 101 meq/L 98-106 = 2075-0) CO2 (test code = 31 meq/L 20-29 H 2027-9) BUN (test code = 54 mg/dL 10-26 H 3094-0) Creatinine (test 2.16 mg/dL 0.50-1.20 H code = 2160-0) Glucose (test code = 177 mg/dL 70-110 H 2345-7) Calcium (test code = 8.9 mg/dL 8.5-10.5 44844-1) EGFR (test code = 33 mL/min/1[place]73 [place] [address]-4) m NOT ACCURATE CREATININE CLEARANCE IN PREDICTING GLOMERULAR FILTRATION RATE . ESTIMATED GFR I S NOT APPLICABLE FOR DIALYSIS PATIENTS. ISSA (test code = Electric Razor Mechanic ID - ISSA) JBERNOperator ID - JBERNOperator ID - JBERNOperator ID - JBERNOperator ID - JBERNOperator ID - JBERNOperator ID - JBERNOperator ID - JBERNOperator ID - JBERNOperator ID - JBERN Lab Interpretation Abnormal (test code = 54586-3) [facility] Metabolic [id number] 06:00:00 Test Item Value Reference Range Interpretation Comments Sodium (test code = 138 meq/L 141-764 0682-2) Potassium (test code 4.3 meq/L 3.6-5.5 = 2823-3) Chloride (test code 101 meq/L 98-106 = 2075-0) CO2 (test code = 31 meq/L 20-29 H 2027-9) BUN (test code = 54 mg/dL 10-26 H 3094-0) Creatinine (test 2.16 mg/dL 0.50-1.20 H code = 2160-0) Glucose (test code = 177 mg/dL 70-110 H 2345-7) Calcium (test code = 8.9 mg/dL 8.5-10.5 96965-7) EGFR (test code = 33 mL/min/1.73 [place] [address]-2) m NOT ACCURATE CREATININE CLEARANCE IN PREDICTING GLOMERULAR FILTRATION RATE . ESTIMATED GFR I S NOT APPLICABLE FOR DIALYSIS PATIENTS. ISSA (test code = Electric Razor Mechanic ID - ISSA) JBERNOperator ID - JBERNOperator ID - JBERNOperator ID - JBERNOperator ID - JBERNOperator ID - JBERNOperator ID - JBERNOperator ID - JBERNOperator ID - JBERNOperator ID - JBERN Lab Interpretation Abnormal (test code = 72255-5) [facility] Metabolic [id number] 06:00:00 Test Item Value Reference Range Interpretation Comments Sodium (test code = 138 meq/L 407-521 7334-2) Potassium (test code 4.3 meq/L 3.6-5.5 = 2823-3) Chloride (test code 101 meq/L 98-106 = 2075-0) CO2 (test code = 31 meq/L 20-29 H 2027-9) BUN (test code = 54 mg/dL 10-26 H 3094-0) Creatinine (test 2.16 mg/dL 0.50-1.20 H code = 2160-0) Glucose (test code = 177 mg/dL 70-110 H 2345-7) Calcium (test code = 8.9 mg/dL 8.5-10.5 61531-2) EGFR (test code = 33 mL/min/1.[place] [address]-3) m NOT ACCURATE CREATININE CLEARANCE IN PREDICTING GLOMERULAR FILTRATION RATE . ESTIMATED GFR I S NOT APPLICABLE FOR DIALYSIS PATIENTS. ISSA (test code = Electric Razor Mechanic ID - ISSA) JBERNOperator ID - JBERNOperator ID - JBERNOperator ID - JBERNOperator ID - JBERNOperator ID - JBERNOperator ID - JBERNOperator ID - JBERNOperator ID - JBERNOperator ID - JBERN Lab Interpretation Abnormal (test code = 00918-7) [facility] METABOLIC [id number] 06:00:00 Test Item Value Reference Range Interpretation [...] S NOT APPLICABLE FOR DIALYSIS PATIEN TS. Electric Razor Mechanic ID - JBERNOperator ID - JBERNOperator ID - JBERNOperator ID - JBERNOperator ID - JBERNOperator ID - JBERNOperator ID - JBERNOperator ID - JBERNOperator ID - JBERNOperator ID - [id number] 05:42:00 Test Item Value Reference Range Interpretation Comments Magnesium (test code = 2.2 mg/dL 1.5-3 76108-4) 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 ID - JBERNOperator ID - JBERNOperator ID - JBERNOperator ID - JBERN Lab Interpretation Normal (test code = 97363-3) [facility]2021-07-04 05:42:00 Test Item Value Reference Range Interpretation Comments Magnesium (test code = 2.2 mg/dL 1.5-3 51333-8) 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 ID - JBERNOperator ID - JBERNOperator ID - JBERNOperator ID - JBERN Lab Interpretation Normal (test code = 71664-7) [facility]2021-07-04 05:42:00 Test Item Value Reference Range Interpretation Comments Magnesium (test code = 2.2 mg/dL 1.5-3 42572-5) 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 ID - JBERNOperator ID - JBERNOperator ID - JBERNOperator ID - JBERN Lab Interpretation Normal (test code = 77941-4) [facility]2021-07-04 05:42:00 Test Item Value Reference Range Interpretation Comments Magnesium (test code = 2.2 mg/dL 1.5-3 69684-6) 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 ID - JBERNOperator ID - JBERNOperator ID - JBERNOperator ID - JBERN Lab Interpretation Normal (test code = 74625-7) [facility]2021-07-04 05:42:00 Test Item Value Reference Range Interpretation Comments Magnesium (test code = 2.2 mg/dL 1.5-3.0 12087-6) 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 ID - JBERNOperator ID - JBERNOperator ID - JBERNOperator ID - JBERN Lab Interpretation Normal (test code = 60173-1) [facility]2021-07-04 05:42:00 Test Item Value Reference Range Interpretation Comments Magnesium (test code = 2.2 mg/dL 1.5-3.0 71554-4) ISSA (test code = SISA) [employer] ID - JBERNOperator ID - JBERNOperator ID - JBERNOperator ID - JBERN Lab Interpretation Normal (test code = 39735-6) [facility]2021-07-04 05:42:00 Test Item Value Reference Range Interpretation Comments Magnesium (test code = 2.2 mg/dL 1.5-3.0 17801-3) 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 ID - JBERNOperator ID - JBERNOperator ID - JBERNOperator ID - JBERN Lab Interpretation Normal (test code = 17278-5) [facility]2021-07-04 05:42:00 Test Item Value Reference Range Interpretation Comments MAGNESIUM (BEAKER) (test code = 2.2 mg/dL 1.5-3.0 627) [employer] ID - JBERNOperator ID - JBERNOperator ID - JBERNOperator ID - JBERNCBC with platelet count + automated [id number] 05:17:00 Test Item Value Reference Range Interpretation Comments WBC (test code = 6690-2) 7.6 See_Comment [A utomated message] The system [employer] generated this result transmitted ref erence range: 4.0 - 10 .0 K/L. The refe rence range was not u sed to interpret this result as normal/abnor mal. RBC (test code = 789-8) 3.54 See_Comment L [Au tomated message] The system [employer] generated this result transmitted ref erence range: 4.20 - 5 .80 M/L. The refe rence range was not u sed to interpret this result as normal/abnor mal. MCHC (test code = 786-4) 31.0 See_Comment L [A utomated message] The system [employer] generated this result transmitted ref erence range: [...] See_Comment [Aut omated message] 777-3) The system [employer] generated this result transmitted ref erence range: 150 - 43 0 K/CU MM. The referen ce range was not u sed to interpret this result as normal/abnor mal. MPV (test code = 11.1 fL 6-11.5 75568-7) nRBC (test code = 413) 0 See_Comment [Aut omated message] The system [employer] generated this result transmitted ref erence range: [...] See_Comment [Aut omated message] 670) The system [employer] generated this result transmitted ref erence range: 1.80 - 8 .00 K/L. The refe rence range was not u sed to interpret this result as normal/abnor mal. # Lymphs (test code = 0.97 See_Comment L [Auto mated message] 414) The system [employer] generated this result transmitted ref erence range: 1.48 - 4 .50 K/L. The refe rence range was not u sed to interpret this result as normal/abnor mal. # Monos (test code = 0.74 See_Comment [Autom ated message] 415) The system [employer] generated this result transmitted ref erence range: 0.00 - 1 .30 K/L. The refe rence range was not u sed to interpret this result as normal/abnor mal. # Eos (test code = 416) 0.21 See_Comment [Au tomated message] The system [employer] generated this result transmitted ref erence range: 0.00 - 0 .50 K/L. The refe rence range was not u sed to interpret this result as normal/abnor mal. # Baso (test code = 417) 0.05 See_Comment [A utomated message] The system [employer] generated this result transmitted ref erence range: 0.00 - 0 .20 K/L. The refe rence range was not u sed to interpret this result as normal/abnor mal. Immature 1 % 0-0 H Granulocytes-Relative (test code = 2801) Lab Interpretation (test Abnormal code = 42767-5) [facility] with platelet count + automated [id number] 05:17:00 Test Item Value Reference Range Interpretation Comments WBC (test code = 6690-2) 7.6 See_Comment [A utomated message] The system [employer] generated this result transmitted ref erence range: 4.0 - 10 .0 K/L. The refe rence range was not u sed to interpret this result as normal/abnor mal. RBC (test code = 789-8) 3.54 See_Comment L [Au tomated message] The system [employer] generated this result transmitted ref erence range: 4.20 - 5 .80 M/L. The refe rence range was not u sed to interpret this result as normal/abnor mal. MCHC (test code = 786-4) 31.0 See_Comment L [A utomated message] The system [employer] generated this result transmitted ref erence range: [...] code = 230 See_Comment [Aut omated message] 057-3) The system [employer] generated this result transmitted ref erence range: 150 - 43 0 K/CU MM. The referen ce range was not u sed to interpret this result as normal/abnor mal. MPV (test code = 11.1 fL 6-11.5 59941-0) nRBC (test code = 413) 0 See_Comment [Aut omated message] The system [employer] generated this result transmitted ref erence range: [...] See_Comment [Aut omated message] 670) The system [employer] generated this result transmitted ref erence range: 1.80 - 8 .00 K/L. The refe rence range was not u sed to interpret this result as normal/abnor mal. # Lymphs (test code = 0.97 See_Comment L [Auto mated message] 414) The system [employer] generated this result transmitted ref erence range: 1.48 - 4 .50 K/L. The refe rence range was not u sed to interpret this result as normal/abnor mal. # Monos (test code = 0.74 See_Comment [Autom ated message] 415) The system [employer] generated this result transmitted ref erence range: 0.00 - 1 .30 K/L. The refe rence range was not u sed to interpret this result as normal/abnor mal. # Eos (test code = 416) 0.21 See_Comment [Au tomated message] The system [employer] generated this result transmitted ref erence range: 0.00 - 0 .50 K/L. The refe rence range was not u sed to interpret this result as normal/abnor mal. # Baso (test code = 417) 0.05 See_Comment [A utomated message] The system [employer] generated this result transmitted ref erence range: 0.00 - 0 .20 K/L. The refe rence range was not u sed to interpret this result as normal/abnor mal. Immature 1 % 0-0 H Granulocytes-Relative (test code = 2801) Lab Interpretation (test Abnormal code = 04952-2) [facility] with platelet count + automated [id number] 05:17:00 Test Item Value Reference Range Interpretation Comments WBC (test code = 6690-2) 7.6 See_Comment [A utomated message] The system [employer] generated this result transmitted ref erence range: 4.0 - 10 .0 K/L. The refe rence range was not u sed to interpret this result as normal/abnor mal. RBC (test code = 789-8) 3.54 See_Comment L [Au tomated message] The system [employer] generated this result transmitted ref erence range: 4.20 - 5 .80 M/L. The refe rence range was not u sed to interpret this result as normal/abnor mal. MCHC (test code = 786-4) 31.0 See_Comment L [A utomated message] The system [employer] generated this result transmitted ref erence range: [...] See_Comment [Aut omated message] 777-3) The system [employer] generated this result transmitted ref erence range: 150 - 43 0 K/CU MM. The referen ce range was not u sed to interpret this result as normal/abnor mal. MPV (test code = 11.1 fL 6-11.5 36454-6) nRBC (test code = 413) 0 See_Comment [Aut omated message] The system [employer] generated this result transmitted ref erence range: [...] See_Comment [Aut omated message] 670) The system [employer] generated this result transmitted ref erence range: 1.80 - 8 .00 K/L. The refe rence range was not u sed to interpret this result as normal/abnor mal. # Lymphs (test code = 0.97 See_Comment L [Auto mated message] 414) The system [employer] generated this result transmitted ref erence range: 1.48 - 4 .50 K/L. The refe rence range was not u sed to interpret this result as normal/abnor mal. # Monos (test code = 0.74 See_Comment [Autom ated message] 415) The system [employer] generated this result transmitted ref erence range: 0.00 - 1 .30 K/L. The refe rence range was not u sed to interpret this result as normal/abnor mal. # Eos (test code = 416) 0.21 See_Comment [Au tomated message] The system [employer] generated this result transmitted ref erence range: 0.00 - 0 .50 K/L. The refe rence range was not u sed to interpret this result as normal/abnor mal. # Baso (test code = 417) 0.05 See_Comment [A utomated message] The system [employer] generated this result transmitted ref erence range: 0.00 - 0 .20 K/L. The refe rence range was not u sed to interpret this result as normal/abnor mal. Immature 1 % 0-0 H Granulocytes-Relative (test code = 2801) Lab Interpretation (test Abnormal code = 53772-5) [facility] with platelet count + automated [id number] 05:17:00 Test Item Value Reference Range Interpretation Comments WBC (test code = 6690-2) 7.6 See_Comment [A utomated message] The system [employer] generated this result transmitted ref erence range: 4.0 - 10 .0 K/L. The refe rence range was not u sed to interpret this result as normal/abnor mal. RBC (test code = 789-8) 3.54 See_Comment L [Au tomated message] The system [employer] generated this result transmitted ref erence range: 4.20 - 5 .80 M/L. The refe rence range was not u sed to interpret this result as normal/abnor mal. MCHC (test code = 786-4) 31.0 See_Comment L [A utomated message] The system [employer] generated this result transmitted ref erence range: [...] See_Comment [Aut omated message] 777-3) The system [employer] generated this result transmitted ref erence range: 150 - 43 0 K/CU MM. The referen ce range was not u sed to interpret this result as normal/abnor mal. MPV (test code = 11.1 fL 6-11.5 25185-2) nRBC (test code = 413) 0 See_Comment [Aut omated message] The system [employer] generated this result transmitted ref erence range: [...] See_Comment [Aut omated message] 670) The system [employer] generated this result transmitted ref erence range: 1.80 - 8 .00 K/L. The refe rence range was not u sed to interpret this result as normal/abnor mal. # Lymphs (test code = 0.97 See_Comment L [Auto mated message] 414) The system [employer] generated this result transmitted ref erence range: 1.48 - 4 .50 K/L. The refe rence range was not u sed to interpret this result as normal/abnor mal. # Monos (test code = 0.74 See_Comment [Autom ated message] 415) The system [employer] generated this result transmitted ref erence range: 0.00 - 1 .30 K/L. The refe rence range was not u sed to interpret this result as normal/abnor mal. # Eos (test code = 416) 0.21 See_Comment [Au tomated message] The system [employer] generated this result transmitted ref erence range: 0.00 - 0 .50 K/L. The refe rence range was not u sed to interpret this result as normal/abnor mal. # Baso (test code = 417) 0.05 See_Comment [A utomated message] The system [employer] generated this result transmitted ref erence range: 0.00 - 0 .20 K/L. The refe rence range was not u sed to interpret this result as normal/abnor mal. Immature 1 % 0-0 H Granulocytes-Relative (test code = 2801) Lab Interpretation (test Abnormal code = 53874-9) [facility] with platelet count + automated [id number] 05:17:00 Test Item Value Reference Range Interpretation Comments WBC (test code = 6690-2) 7.6 See_Comment [A utomated message] The system [employer] generated this result transmitted ref erence range: 4.0 - 10 .0 K/L. The refe rence range was not u sed to interpret this result as normal/abnor mal. RBC (test code = 789-8) 3.54 See_Comment L [Au tomated message] The system [employer] generated this result transmitted ref erence range: 4.20 - 5 .80 M/L. The refe rence range was not u sed to interpret this result as normal/abnor mal. MCHC (test code = 786-4) 31.0 See_Comment L [A utomated message] The system [employer] generated this result transmitted ref erence range: [...] See_Comment [Aut omated message] 777-3) The system [employer] generated this result transmitted ref erence range: 150 - 43 0 K/CU MM. The referen ce range was not u sed to interpret this result as normal/abnor mal. MPV (test code = 11.1 fL 6.0-11.5 59109-5) nRBC (test code = 413) 0 See_Comment [Aut omated message] The system [employer] generated this result transmitted ref erence range: [...] See_Comment [Aut omated message] 670) The system [employer] generated this result transmitted ref erence range: 1.80 - 8 .00 K/L. The refe rence range was not u sed to interpret this result as normal/abnor mal. # Lymphs (test code = 0.97 See_Comment L [Auto mated message] 414) The system [employer] generated this result transmitted ref erence range: 1.48 - 4 .50 K/L. The refe rence range was not u sed to interpret this result as normal/abnor mal. # Monos (test code = 0.74 See_Comment [Autom ated message] 415) The system [employer] generated this result transmitted ref erence range: 0.00 - 1 .30 K/L. The refe rence range was not u sed to interpret this result as normal/abnor mal. # Eos (test code = 416) 0.21 See_Comment [Au tomated message] The system [employer] generated this result transmitted ref erence range: 0.00 - 0 .50 K/L. The refe rence range was not u sed to interpret this result as normal/abnor mal. # Baso (test code = 417) 0.05 See_Comment [A utomated message] The system [employer] generated this result transmitted ref erence range: 0.00 - 0 .20 K/L. The refe rence range was not u sed to interpret this result as normal/abnor mal. Immature 1 % 0-0 H Granulocytes-Relative (test code = 2801) Lab Interpretation (test Abnormal code = 91875-9) [facility] with platelet count + automated [id number] 05:17:00 Test Item Value Reference Range Interpretation Comments WBC (test code = 6690-2) 7.6 See_Comment [A utomated message] The system [employer] generated this result transmitted ref erence range: 4.0 - 10 .0 K/L. The refe rence range was not u sed to interpret this result as normal/abnor mal. RBC (test code = 789-8) 3.54 See_Comment L [Au tomated message] The system [employer] generated this result transmitted ref erence range: 4.20 - 5 .80 M/L. The refe rence range was not u sed to interpret this result as normal/abnor mal. MCHC (test code = 786-4) 31.0 See_Comment L [A utomated message] The system [employer] generated this result transmitted ref erence range: [...] See_Comment [Aut omated message] 777-3) The system [employer] generated this result transmitted ref erence range: 150 - 43 0 K/CU MM. The referen ce range was not u sed to interpret this result as normal/abnor mal. MPV (test code = 11.1 fL 6.0-11.5 46524-5) nRBC (test code = 413) 0 See_Comment [Aut omated message] The system [employer] generated this result transmitted ref erence range: [...] See_Comment [Aut omated message] 670) The system [employer] generated this result transmitted ref erence range: 1.80 - 8 .00 K/L. The refe rence range was not u sed to interpret this result as normal/abnor mal. # Lymphs (test code = 0.97 See_Comment L [Auto mated message] 414) The system [employer] generated this result transmitted ref erence range: 1.48 - 4 .50 K/L. The refe rence range was not u sed to interpret this result as normal/abnor mal. # Monos (test code = 0.74 See_Comment [Autom ated message] 415) The system [employer] generated this result transmitted ref erence range: 0.00 - 1 .30 K/L. The refe rence range was not u sed to interpret this result as normal/abnor mal. # Eos (test code = 416) 0.21 See_Comment [Au tomated message] The system [employer] generated this result transmitted ref erence range: 0.00 - 0 .50 K/L. The refe rence range was not u sed to interpret this result as normal/abnor mal. # Baso (test code = 417) 0.05 See_Comment [A utomated message] The system [employer] generated this result transmitted ref erence range: 0.00 - 0 .20 K/L. The refe rence range was not u sed to interpret this result as normal/abnor mal. Immature 1 % 0-0 H Granulocytes-Relative (test code = 2801) Lab Interpretation (test Abnormal code = 83980-6) [facility] with platelet count + automated [id number] 05:17:00 Test Item Value Reference Range Interpretation Comments WBC (test code = 6690-2) 7.6 See_Comment [A utomated message] The system [employer] generated this result transmitted ref erence range: 4.0 - 10 .0 K/L. The refe rence range was not u sed to interpret this result as normal/abnor mal. RBC (test code = 789-8) 3.54 See_Comment L [Au tomated message] The system [employer] generated this result transmitted ref erence range: 4.20 - 5 .80 M/L. The refe rence range was not u sed to interpret this result as normal/abnor mal. MCHC (test code = 786-4) 31.0 See_Comment L [A utomated message] The system [employer] generated this result transmitted ref erence range: [...] See_Comment [Aut omated message] 777-3) The system [employer] generated this result transmitted ref erence range: 150 - 43 0 K/CU MM. The referen ce range was not u sed to interpret this result as normal/abnor mal. MPV (test code = 11.1 fL 6.0-11.5 91132-1) nRBC (test code = 413) 0 See_Comment [Aut omated message] The system [employer] generated this result transmitted ref erence range: [...] See_Comment [Aut omated message] 670) The system [employer] generated this result transmitted ref erence range: 1.80 - 8 .00 K/L. The refe rence range was not u sed to interpret this result as normal/abnor mal. # Lymphs (test code = 0.97 See_Comment L [Auto mated message] 414) The system [employer] generated this result transmitted ref erence range: 1.48 - 4 .50 K/L. The refe rence range was not u sed to interpret this result as normal/abnor mal. # Monos (test code = 0.74 See_Comment [Autom ated message] 415) The system [employer] generated this result transmitted ref erence range: 0.00 - 1 .30 K/L. The refe rence range was not u sed to interpret this result as normal/abnor mal. # Eos (test code = 416) 0.21 See_Comment [Au tomated message] The system [employer] generated this result transmitted ref erence range: 0.00 - 0 .50 K/L. The refe rence range was not u sed to interpret this result as normal/abnor mal. # Baso (test code = 417) 0.05 See_Comment [A utomated message] The system [employer] generated this result transmitted ref erence range: 0.00 - 0 .20 K/L. The refe rence range was not u sed to interpret this result as normal/abnor mal. Immature 1 % 0-0 H Granulocytes-Relative (test code = 2801) Lab Interpretation (test Abnormal code = 20675-5) [facility] W/PLT COUNT & AUTO [id number] 05:17:00 Test Item Value Reference Range Interpretation [...] PERCENT (BEAKER) (test code = 2801) POCT-GLUCOSE [id number] 13:00:00 Test Item Value Reference Range Interpretation Comments POC-GLUCOSE METER 114 mg/dL 70-110 H : Notified RN/MD: TESTED (BEAKER) (test code AT [place] [address] [place] = 1538) [facility] [address]: [employer]/Techni cornelia ID = [id number] for Cony Osborne ANAEROBIC [id number] 09:52:00 Test Item Value Reference Range Interpretation Comments CULTURE (BEAKER) (test No anaerobes isolated code = 1095) Anaerobic [id number] 09:51:00 Test Item Value Reference Range Interpretation Comments Result (test code = No anaerobes isolated 6463-4) [facility] [id number] 09:51:00 Test Item Value Reference Range Interpretation Comments Result (test code = No anaerobes isolated 6463-4) [facility] [id number] 09:51:00 Test Item Value Reference Range Interpretation Comments Result (test code = No anaerobes isolated 6463-4) [facility] [id number] 09:51:00 Test Item Value Reference Range Interpretation Comments Result (test code = No anaerobes isolated 6463-4) [facility] [id number] 09:51:00 Test Item Value Reference Range Interpretation Comments Result (test code = No anaerobes isolated 6463-4) [facility] [id number] 09:51:00 Test Item Value Reference Range Interpretation Comments Result (test code = No anaerobes isolated 6463-4) [facility] [id number] 09:51:00 Test Item Value Reference Range Interpretation Comments Result (test code = No anaerobes isolated 6463-4) [facility] [id number] 09:51:00 Test Item Value Reference Range Interpretation Comments CULTURE (BEAKER) (test No anaerobes isolated code = 1095) BASIC METABOLIC [id number] 06:34:00 Test Item Value Reference Range Interpretation [...] S NOT APPLICABLE FOR DIALYSIS PATIEN TS. Electric Razor Mechanic ID - [id number] ID - [id number] ID - [id number] ID - [id number] ID - [id number] ID - [id number] ID - [id number] ID - [id number] ID - [id number] ID - [id number]- GLUCOSE [id number] 06:13:00 Test Item Value Reference Range Interpretation Comments POC-GLUCOSE METER 95 mg/dL 70-110 : TESTED A T [address] (BEAKER) (test code = [address], 1538) [facility] [address]: Electric Razor Mechanic/Techni cornelia ID = [id number] for Agustina Harrison [id number] 05:36:00 Test Item Value Reference Range Interpretation Comments MAGNESIUM (BEAKER) (test code = 1.9 mg/dL 1.5-3.0 627) Electric Razor Mechanic ID - [id number] ID - [id number] ID - [id number] ID - [id number] W/PLT COUNT & AUTO [id number] 05:21:00 Test Item Value Reference Range Interpretation [...] PERCENT (BEAKER) (test code = 2801) POCT-GLUCOSE [id number] 21:10:00 Test Item Value Reference Range Interpretation Comments POC-GLUCOSE METER 137 mg/dL 70-110 H : TESTED A T [address] (BEAKER) (test code [facility], = 1538) [place] [address]: Electric Razor Mechanic/Techni cornelia ID = [id number] for Lisa mcghee Agustina POCT-GLUCOSE [id number] 19:19:00 Test Item Value Reference Range Interpretation Comments POC-GLUCOSE METER 119 mg/dL 70-110 H : TESTED A T [address] (BEAKER) (test code [facility], = 1538) [place] [address]: Electric Razor Mechanic/Techni cornelia ID = [id number] for Adrienne r, Heidy POCT-GLUCOSE [id number] 12:43:00 Test Item Value Reference Range Interpretation Comments POC-GLUCOSE METER 126 mg/dL 70-110 H : TESTED A T [address] (BEAKER) (test code [facility], = 1538) [place] [id number]: Electric Razor Mechanic/Techni cornelia ID = [id number] for Adrienne r, Heidy POCT-GLUCOSE [id number] 06:47:00 Test Item Value Reference Range Interpretation Comments POC-GLUCOSE METER 132 mg/dL 70-110 H : TESTED A T [address] (BEAKER) (test code [facility], = 1538) [place] [address]: Electric Razor Mechanic/Techni cornelia ID = [id number] for Dianna sharp Zackary BASIC METABOLIC [id number] 04:59:00 Test Item Value Reference Range Interpretation [...] S NOT APPLICABLE FOR DIALYSIS PATIEN TS. Electric Razor Mechanic ID - [id number] ID - [id number] ID - alzm77Tfmlmusy ID - [id number] ID - lplw19Qfqpirov ID - [id number] ID - [id number] ID - [id number] ID - zras56Lhhmdffb ID - [id number] 04:44:00 Test Item Value Reference Range Interpretation Comments MAGNESIUM (BEAKER) (test code = 2.0 mg/dL 1.5-3.0 627) Electric Razor Mechanic ID - [id number] ID - [id number] ID - [id number] ID - [id number] CBC W/PLT COUNT & AUTO [id number] 04:30:00 Test Item Value Reference Range Interpretation [...] PERCENT (BEAKER) (test code = 2801) POCT-GLUCOSE [id number] 23:23:00 Test Item Value Reference Range Interpretation Comments POC-GLUCOSE METER 156 mg/dL 70-110 H : TESTED A T [facility] (BEAKER) (test [facility] = [facility] [place] [address]: Electric Razor Mechanic/Techni cornelia ID = [id number] for Yfn Bustamante sio POCT-GLUCOSE [id number] 18:35:00 Test Item Value Reference Range Interpretation Comments POC-GLUCOSE METER 137 mg/dL 70-110 H : TESTED A T [address] (BEAKER) (test [facility] = 1538) [place] [address] 478: Electric Razor Mechanic/Techni cornelia ID = [id number] for Heidy Martin POCT-GLUCOSE [id number] 13:42:00 Test Item Value Reference Range Interpretation Comments POC-GLUCOSE METER 109 mg/dL 70-110 : TESTED A T [facility] 1317 (BEAKER) (test code [address], = 1538) [facility] 77 [address]: Electric Razor Mechanic/Techni cornelia ID = [id number] for Heidy Martin RAD, FOOT, MIN 3 VIEWS, [id number] 09:06:00Reason for exam:->s/p 5th metatarsal head resection [facility] 1975 Sex: [...] Gleason Verified Date/Time: 09/26/2020 09:06:00 Reading Location: [facility] Radiology Reading Room XR foot 3 views [id number] 09:06:00 Interface, External Ris In - 09/26/2020 [...] Gleason Verified Date/Time: 09/26/2020 09:06:00 Reading Location: [facility] [id number] 09:06:00Interface, External Ris In - 09/26/2020 9:08 [...] Gleason Verified Date/Time: 09/26/2020 09:06:00 Reading Location: [facility] Radiology [facility] [id number] 09:06:00Interface, External Ris In - 09/26/2020 9:08 [...] Gleason Verified Date/Time: 09/26/2020 09:06:00 Reading Location: [facility] Radiology [facility] [id number] 09:06:00Interface, External Ris In - 09/26/2020 9:08 [...] Gleasoneport Verified Date/Time: 09/26/2020 09:06:00 Reading Location: [facility] Radiology Reading [facility] [id number] 08:47:00 Test Item Value Reference Range Interpretation Comments POC-GLUCOSE METER 134 mg/dL 70-110 H : Notified RN/MD: TESTED (BEAKER) (test code AT [facility] [address] = 1538) [facility] [address]: Electric Razor Mechanic/Techni cornelia ID = [id number] for Lance bauerRaf Marzena BASIC METABOLIC [id number] 06:13:00 Test Item Value Reference Range Interpretation [...] S NOT APPLICABLE FOR DIALYSIS PATIEN TS. Electric Razor Mechanic ID - [id number] ID - [id number] ID - [id number] ID - [id number] ID - [id number] ID - arun14Hmtrlhrz ID - cinz81Ylbqtcny ID - bynb16Yhtjtdsd ID - jvvc15Khowmcrh ID - [id number] 06:08:00 Test Item Value Reference Range Interpretation Comments MAGNESIUM (BEAKER) (test code = 2.2 mg/dL 1.5-3.0 627) Electric Razor Mechanic ID - [id number] ID - [id number] ID - [id number] ID - [id number] B-type Natriuretic Factor (BNP)2020-09-26 06:01:00 Test Item Value Reference Range Interpretation Comments BNP (test code = 63549-4) 929 pg/mL 0-100 H 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 ID - [id number] Lab Interpretation (test Abnormal code = 21200-6) [facility]2020-09-26 06:01:00 Test Item Value Reference Range Interpretation Comments BNP (test code = 18044-6) 929 pg/mL 0-100 H 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 ID - [id number] Lab Interpretation (test Abnormal code = 31851-5) [facility] (BNP)2020-09-26 06:01:00 Test Item Value Reference Range Interpretation Comments BNP (test code = 55592-7) 929 pg/mL 0-100 H 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 ID - [id number] Lab Interpretation (test Abnormal code = 81783-3) [facility] Nat[facility] (BNP)2020-09-26 06:01:00 Test Item Value Reference Range Interpretation Comments BNP (test code = 36995-0) 929 pg/mL 0-100 H 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 ID - [id number] Lab Interpretation (test Abnormal code = 90507-8) [facility] Natri[facility] (BNP)2020-09-26 06:01:00 Test Item Value Reference Range Interpretation Comments BNP (test code = 74512-4) 929 pg/mL 0-100 H 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 ID - [id number] Lab Interpretation (test Abnormal code = 24837-1) [facility] Natri[facility] (BNP)2020-09-26 06:01:00 Test Item Value Reference Range Interpretation Comments BNP (test code = 93308-5) 929 pg/mL 0-100 H 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 ID - [id number] Lab Interpretation (test Abnormal code = 25623-4) [facility] Natriure[facility] Factor (BNP)2020-09-26 06:01:00 Test Item Value Reference Range Interpretation Comments BNP (test code = 72176-8) 929 pg/mL 0-100 H 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 ID - [id number] Lab Interpretation (test Abnormal code = 30589-8) [facility] NATRIURETIC FACTOR (BNP)2020-09-26 06:01:00 Test Item Value Reference Range Interpretation Comments B-TYPE NATRIURETIC PEPTIDE (BEAKER) 929 pg/mL 0-100 H (test code = 700) Electric Razor Mechanic ID - [id number] W/PLT COUNT & AUTO [id number] 05:44:00 Test Item Value Reference Range Interpretation [...] PERCENT (BEAKER) (test code = 2801) POCT-GLUCOSE [id number] 21:22:00 Test Item Value Reference Range Interpretation Comments POC-GLUCOSE METER 162 mg/dL 70-110 H : TESTED A T [facility] [address] (BEAKER) (test code [facility] [address], = 1538) [place] [address]: Electric Razor Mechanic/Techni cornelia ID = [id number] for Agustina Harrison POCT-GLUCOSE [id number] 16:27:00 Test Item Value Reference Range Interpretation Comments POC-GLUCOSE METER 151 mg/dL 70-110 H : TESTED A T [address] [address] (BEAKER) (test [facility], = 1538) [place] [address]: Electric Razor Mechanic/Techni cornelia ID = [id number] for Zoltan Gamble POCT-GLUCOSE [id number] 11:32:00 Test Item Value Reference Range Interpretation Comments POC-GLUCOSE METER 104 mg/dL 70-110 : TESTED A T [address] [address] (BEAKER) (test code [address], = 1538) [facility] [address]: Electric Razor Mechanic/Techni cornelia ID = [id number] for Zoltan Gamble POCT-GLUCOSE [id number] 06:17:00 Test Item Value Reference Range Interpretation Comments POC-GLUCOSE METER 112 mg/dL 70-110 H : TESTED A T [address] [address] (BEAKER) (test code [address], = 1538) [place] [address]: Electric Razor Mechanic/Techni cornelia ID = [id number] for Lani Kat [id number] 05:39:00 Test Item Value Reference Range Interpretation Comments MAGNESIUM (BEAKER) (test code = 1.9 mg/dL 1.5-3.0 627) Electric Razor Mechanic ID - LITOOperator ID - LITOOperator ID - LITOOperator ID - LITOBASIC METABOLIC [id number] 05:38:00 Test Item Value Reference Range Interpretation [...] S NOT APPLICABLE FOR DIALYSIS PATIEN TS. Electric Razor Mechanic ID - LITOOperator ID - LITOOperator ID - LITOOperator ID - LITOOperator ID - LITOOperator ID - LITOOperator ID - LITOOperator ID - LITOOperator ID - LITOOperator ID - LITOCBC W/PLT COUNT & AUTO [id number] 05:20:00 Test Item Value Reference Range Interpretation [...] PERCENT (BEAKER) (test code = 2801) POCT-GLUCOSE [id number] 20:48:00 Test Item Value Reference Range Interpretation Comments POC-GLUCOSE METER 167 mg/dL 70-110 H : TESTED A T [address] (BEAKER) (test code [address], = 1538) [place] [address]: Electric Razor Mechanic/Techni cornelia ID = [id number] for Lani Kat POCT-GLUCOSE [id number] 17:48:00 Test Item Value Reference Range Interpretation Comments POC-GLUCOSE METER 260 mg/dL 70-110 H : TESTED A T [address] (BEAKER) (test code [address], = 1538) [place] [address]: Electric Razor Mechanic/Techni cornelia ID = [id number] for Heidy Martin ARTERIAL DOPPLER LEGS, [id number] 13:42:00Reason for exam:- >[facility]el[facility] 1975 [...] Ortiz Verified Date/Time: 09/24/2020 13:42:37 Reading Location: [facility] Radiology Reading Room Arterial Doppler Legs Etyyxmjzl3426-29-38 13:42:00Interface, External Ris In - 09/24/2020 1:44 [...] Ortiz Verified Date/Time: 09/24/2020 13:42:37 Reading Location: [facility] Sjajlzyfk9809-96-81 13:42:00Interface, External Ris In - 09/24/2020 1:44 [...] Ortiz Verified Date/Time: 09/24/2020 13:42:37 Reading Location: [facility] Radiology Reading [facility] Legs [id number] 13:42:00Interface, External Ris In - 09/24/2020 1:44 [...] Ortiz Verified Date/Time: 09/24/2020 13:42:37 Reading Location: [facility] Radiology Reading [facility] Legs Flyzoankk2097-74-00 13:42:00Interface, External Ris In - 09/24/2020 1:44 [...] MDReport Verified Date/Time: 09/24/2020 13:42:37 Reading Location: [facility] Radiology Reading [facility] CampusUrea Nitrogen, random [id number] 10:42:00 Test Item Value Reference Range Interpretation Comments Urea Nitrogen, Ur 236 mg/dL (test code = 3095-7) ISSA (test code = Reference Range: No ISSA) NormalsOperator ID - [facility], random [id number] 10:42:00 Test Item Value Reference Range Interpretation Comments Urea Nitrogen, Ur 236 mg/dL (test code = 3095-7) ISSA (test code = Reference Range: No ISSA) NormalsOperator ID - [facility] CenterUrea Nitrogen, random [id number] 10:42:00 Test Item Value Reference Range Interpretation Comments Urea Nitrogen, Ur 236 mg/dL (test code = 3095-7) ISSA (test code = Reference Range: No ISSA) NormalsOperator ID - [facility] CenterUrea Nitrogen, random [id number] 10:42:00 Test Item Value Reference Range Interpretation Comments Urea Nitrogen, Ur 236 mg/dL (test code = 3095-7) ISSA (test code = Reference Range: No ISSA) NormalsOperator ID - [facility] CenterUrea Nitrogen, random [id number] 10:42:00 Test Item Value Reference Range Interpretation Comments Urea Nitrogen, Ur 236 mg/dL (test code = 3095-7) ISSA (test code = Reference Range: No ISSA) NormalsOperator ID - [facility] CenterUrea Nitrogen, random [id number] 10:42:00 Test Item Value Reference Range Interpretation Comments Urea Nitrogen, Ur 236 mg/dL (test code = 3095-7) ISSA (test code = Reference Range: No ISSA) NormalsOperator ID - [facility] CenterUrea Nitrogen, random [id number] 10:42:00 Test Item Value Reference Range Interpretation Comments Urea Nitrogen, Ur 236 mg/dL (test code = 3095-7) ISSA (test code = Reference Range: No ISSA) NormalsOperator [facility], RANDOM [id number] 10:42:00 Test Item Value Reference Range Interpretation Comments UREA NITROGEN URINE (BEAKER) (test 236 mg/dL code = 538) Reference Range: No NormalsOperator [facility] CVitamin D, 05-[id number] 10:38:00 Test Item Value Reference Range Interpretation Comments Vitamin D 25-Hydroxy 7.3 ng/mL 6.6-49.9 (test code = 2764) ISSA (test code = ISSA) Effective 01/06/2017: Reference Range ChangeNew: 6.6-49.9 ng/mL Previous: 13.0-47.8 ng/mL Recommended Vitamin D Target Range: 30.0-40.0 ng/mLOper[facility] Lab Interpretation (test Normal code = 48294-2) [facility], 20-Dyhgluj6930-98-29 10:38:00 Test Item Value Reference Range Interpretation Comments Vitamin D 25-Hydroxy 7.3 ng/mL 6.6-49.9 (test code = 2764) ISSA (test code = ISSA) Effective 01/06/2017: Reference Range ChangeNew: 6.6-49.9 ng/mL Previous: 13.0-47.8 ng/mL Recommended Vitamin D Target Range: 30.0-40.0 ng/mLOperNov[facility] C Lab Interpretation (test Normal code = 06117-7) [facility], 19-Lnvcfqw0221-79-29 10:38:00 Test Item Value Reference Range Interpretation Comments Vitamin D 25-Hydroxy 7.3 ng/mL 6.6-49.9 (test code = 2764) ISSA (test code = ISSA) Effective 01/06/2017: Reference Range ChangeNew: 6.6-49.9 ng/mL Previous: 13.0-47.8 ng/mL Recommended Vitamin D Target Range: 30.0-40.0 ng/mLOperator ID - [facility] Lab Interpretation (test Normal code = 28659-7) [facility], 68-Qpubqcf4995-87-29 10:38:00 Test Item Value Reference Range Interpretation Comments Vitamin D 25-Hydroxy 7.3 ng/mL 6.6-49.9 (test code = 2764) ISSA (test code = ISSA) Effective 01/06/2017: Reference Range ChangeNew: 6.6-49.9 ng/mL Previous: 13.0-47.8 ng/mL Recommended Vitamin D Target Range: 30.0-40.0 ng/mLOperator ID - [facility] Lab Interpretation (test Normal code = 86468-8) [facility], 66-Drrnzry0895-99-29 10:38:00 Test Item Value Reference Range Interpretation Comments Vitamin D 25-Hydroxy 7.3 ng/mL 6.6-49.9 (test code = 2764) ISSA (test code = ISSA) Effective 01/06/2017: Reference Range ChangeNew: 6.6-49.9 ng/mL Previous: 13.0-47.8 ng/mL Recommended Vitamin D Target Range: 30.0-40.0 ng/mLOperator ID - [facility] Lab Interpretation (test Normal code = 31428-4) [facility], 78-Ouxlmeu6631-69-29 10:38:00 Test Item Value Reference Range Interpretation Comments Vitamin D 25-Hydroxy 7.3 ng/mL 6.6-49.9 (test code = 2764) ISSA (test code = ISSA) Effective 01/06/2017: Reference Range ChangeNew: 6.6-49.9 ng/mL Previous: 13.0-47.8 ng/mL Recommended Vitamin D Target Range: 30.0-40.0 ng/mLOperator ID [facility] Lab Interpretation (test Normal code = 91370-0) [facility], 61-Difkaky6054-85-29 10:38:00 Test Item Value Reference Range Interpretation Comments Vitamin D 25-Hydroxy 7.3 ng/mL 6.6-49.9 (test code = 2764) ISSA (test code = ISSA) Effective 01/06/2017: Reference Range ChangeNew: 6.6-49.9 ng/mL Previous: 13.0-47.8 ng/mL Recommended Vitamin D Target Range: 30.0-40.0 ng/mLOperator [facility] C Lab Interpretation (test Normal code = 10314-9) [facility], 37-[id number] 10:38:00 Test Item Value Reference Range Interpretation Comments VITAMIN D 25-OH (BEAKER) (test code 7.3 ng/mL 6.6-49.9 = 2764) Effective 01/06/2017: Reference Range ChangeNew: 6.6-49.9 ng/mL Previous: 13.0-47.8 ng/mLRecommended Vitamin D Target Range: 30.0-40.0 ng/mLOperator [facility], [id number] 07:31:00 Test Item Value Reference Range Interpretation Comments PTH (test code = 2731-8) 271.6 pg/mL 15-90 H 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 ID - [id number] Lab Interpretation (test Abnormal code = 21922-3) [facility], [id number] 07:31:00 Test Item Value Reference Range Interpretation Comments PTH (test code = 2731-8) 271.6 pg/mL 15-90 H 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 ID - [id number] Lab Interpretation (test Abnormal code = 17737-6) [facility], [id number] 07:31:00 Test Item Value Reference Range Interpretation Comments PTH (test code = 2731-8) 271.6 pg/mL 15-90 H 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 ID - [id number] Lab Interpretation (test Abnormal code = 90860-1) [facility], [id number] 07:31:00 Test Item Value Reference Range Interpretation Comments PTH (test code = 2731-8) 271.6 pg/mL 15-90 H 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 ID - [id number] Lab Interpretation (test Abnormal code = 75078-9) [facility], gezyfo0594-98-27 07:31:00 Test Item Value Reference Range Interpretation Comments PTH (test code = 2731-8) 271.6 pg/mL 15.0-90.0 H 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 ID - [id number] Lab Interpretation (test Abnormal code = 73356-2) [facility], [id number] 07:31:00 Test Item Value Reference Range Interpretation Comments PTH (test code = 2731-8) 271.6 pg/mL 15.0-90.0 H 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 ID - [id number] Lab Interpretation (test Abnormal code = 11163-8) [facility], [id number] 07:31:00 Test Item Value Reference Range Interpretation Comments PTH (test code = 2731-8) 271.6 pg/mL 15.0-90.0 H 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 ID - [id number] Lab Interpretation (test Abnormal code = 22759-3) [facility], [id number] 07:31:00 Test Item Value Reference Range Interpretation Comments PARATHYROID HORMONE INTACT 271.6 pg/mL 15.0-90.0 H (BEAKER) (test code = 577) Electric Razor Mechanic ID - [id number] [id number] 06:45:00 Test Item Value Reference Range Interpretation Comments POC-GLUCOSE METER 122 mg/dL 70-110 H : Notified RN/MD: TESTED (RAADAKER) (test code AT [facility] [address] = 1538) [facility] [address] Electric Razor Mechanic/Techni cornelia ID = [id number] for Coco Griffin Iron, TIBC, % sat. (without ferritin)2020-09-24 06:41:00 Test Item Value Reference Range Interpretation Comments Iron (test code = 43.0 ug/dL 45-170 L 2498-4) TIBC (test code = 189 ug/dL 250-550 L 2500-7) Iron % Saturation (test 23 % 20-55 code = 2502-3) 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 ID - LITOOperator ID - ARCHIE Lab Interpretation (test Abnormal code = 75638-7) [facility], TIBC, % sat. (without ferritin)2020-09-24 06:41:00 Test Item Value Reference Range Interpretation Comments Iron (test code = 43.0 ug/dL 45-170 L 2498-4) TIBC (test code = 189 ug/dL 250-550 L 2500-7) Iron % Saturation (test 23 % 20-55 code = 2502-3) 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 ID - LITOOperator ID - ARCHIE Lab Interpretation (test Abnormal code = 66973-4) [facility], TIBC, % sat. (without ferritin)2020-09-24 06:41:00 Test Item Value Reference Range Interpretation Comments Iron (test code = 43.0 ug/dL 45-170 L 2498-4) TIBC (test code = 189 ug/dL 250-550 L 2500-7) Iron % Saturation (test 23 % 20-55 code = 2502-3) 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 ID - LITOOperator ID - ARCHIE Lab Interpretation (test Abnormal code = 63260-8) [facility], TIBC, % sat. (without ferritin)2020-09-24 06:41:00 Test Item Value Reference Range Interpretation Comments Iron (test code = 43.0 ug/dL 45-170 L 2498-4) TIBC (test code = 189 ug/dL 250-550 L 2500-7) Iron % Saturation (test 23 % 20-55 code = 2502-3) 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 ID - LITOOperator ID - ARCHIE Lab Interpretation (test Abnormal code = 48113-7) [facility], TIBC, % sat. (without ferritin)2020-09-24 06:41:00 Test Item Value Reference Range Interpretation Comments Iron (test code = 43.0 ug/dL 45.0-170.0 L 2498-4) TIBC (test code = 189 ug/dL 250-550 L 2500-7) Iron % Saturation (test 23 % 20-55 code = 2502-3) 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 ID - LITOOperator ID - ARCHIE Lab Interpretation (test Abnormal code = 31093-7) [facility], TIBC, % sat. (without ferritin)2020-09-24 06:41:00 Test Item Value Reference Range Interpretation Comments Iron (test code = 43.0 ug/dL 45.0-170.0 L 2498-4) TIBC (test code = 189 ug/dL 250-550 L 2500-7) Iron % Saturation (test 23 % 20-55 code = 2502-3) 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 ID - LITOOperator ID - ARCHIE Lab Interpretation (test Abnormal code = 41972-1) [facility], TIBC, % sat. (without ferritin)2020-09-24 06:41:00 Test Item Value Reference Range Interpretation Comments Iron (test code = 43.0 ug/dL 45.0-170.0 L 2498-4) TIBC (test code = 189 ug/dL 250-550 L 2500-7) Iron % Saturation (test 23 % 20-55 code = 2502-3) 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 ID - LITOOperator ID - ARCHIE Lab Interpretation (test Abnormal code = 65922-2) [facility] [place], TIBC, % SAT. (WITHOUT FERRITIN)2020-09-24 06:41:00 Test Item Value Reference Range Interpretation Comments IRON (BEAKER) (test code = 547) 43.0 ug/dL 45.0-170.0 L TOTAL IRON BINDING CAPACITY 189 ug/dL 250-550 L (BEAKER) (test code = 769) IRON % SATURATION (2) (BEAKER) 23 % 20-55 (test code = 2590) Electric Razor Mechanic ID - LITOOperator ID - [id number] 06:23:00 Test Item Value Reference Range Interpretation Comments Ferritin (test code = 190.40 ng/mL 22-322 2276-4) 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 ID - ARCHIE Lab Interpretation (test Normal code = 12878-4) [facility] Test Item Value Reference Range Interpretation Comments Ferritin (test code = 190.40 ng/mL 2276-4) 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 ID - ARCHIE Lab Interpretation (test Normal code = 23662-8) [facility] Test Item Value Reference Range Interpretation Comments Ferritin (test code = 190.40 ng/mL 2276-4) 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 ID - ARCHIE Lab Interpretation (test Normal code = 77568-6) [facility] Test Item Value Reference Range Interpretation Comments Ferritin (test code = 190.40 ng/mL 2276-4) 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 ID - ARCHIE Lab Interpretation (test Normal code = 68898-6) [facility] 06:[facility] Test Item Value Reference Range Interpretation Comments Ferritin (test code = 190.40 ng/mL 22.00-322.00 2276-4) 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 ID - ARCHIE Lab Interpretation (test Normal code = 52691-3) [facility] 06:[facility]00 Test Item Value Reference Range Interpretation Comments Ferritin (test code = 190.40 ng/mL 22.00-322.00 2276-4) 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 ID - ARCHIE Lab Interpretation (test Normal code = 53841-8) [facility] 06:[facility] Test Item Value Reference Range Interpretation Comments Ferritin (test code = 190.40 ng/mL 22.00-322.00 2276-4) 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 ID - ARCHIE Lab Interpretation (test Normal code = 49216-0) [facility] 06:23[facility]00 Test Item Value Reference Range Interpretation Comments FERRITIN (BEAKER) (test code = 190.40 ng/mL 22.00-322.00 361) Electric Razor Mechanic ID - LITOBASIC METABOLIC [id number] 06:18:00 Test Item Value Reference Range Interpretation [...] S NOT APPLICABLE FOR DIALYSIS PATIEN TS. Electric Razor Mechanic ID - LITOOperator ID - LITOOperator ID - LITOOperator ID - LITOOperator ID - LITOOperator ID - LITOOperator ID - LITOOperator ID - LITOOperator ID - LITOOperator ID - [id number] 06:04:00 Test Item Value Reference Range Interpretation Comments MAGNESIUM (BEAKER) (test code = 1.6 mg/dL 1.5-3.0 627) Electric Razor Mechanic ID - LITOOperator ID - LITOOperator ID - LITOOperator ID - LITOCBC W/PLT COUNT & AUTO [id number] 06:03:00 Test Item Value Reference Range Interpretation [...] PERCENT (BEAKER) (test code = 2801) POCT-GLUCOSE [id number] 21:37:00 Test Item Value Reference Range Interpretation Comments POC-GLUCOSE METER 185 mg/dL 70-110 H : TESTED A T SLSL 1317 (BEAKER) (test code [facility] [address], = 1538) [facility] 77 478: Electric Razor Mechanic/Techni cornelia ID = [id number] for Rachel Branham U/S, RENAL, [id number] 21:19:00Reason for exam:->[facility]ute renal [facility] : 1975 Sex: MFINAL REPORT [...] Moose Peterseneport Verified Date/Time: 121:19:36 US renal [id number] 21:19:00Interface, External Ris In - 09/23/2020 9:21 [...] Signed: Teo Petersen Verified Date/Time: 09/23/2020 21:19:36 [facility] 2020-09[facility]23 21:19:00Interface, External Ris In [...] Signed: Moose Petersen Verified Date/Time: 09/23/2020 21:19:36 [facility] renal [id number] 21:19:00Interface, External Ris In - 09/23/2020 9:21 [...] urinary bladder postvoid residual. Signed: Moose Petersen [facility] Verified Date/Time: 09/23/2020 21:19:36 [facility] renal [id number] 21:19:00Interface, External Ris In - 09/23/2020 9:21 [...] Moose Petersen MDReport Verified Date/Time: 09/23/2020 21:19:36 [facility] Protein, random [id number] 19:02:00 Test Item Value Reference Range Interpretation Comments Protein, Urine (test code 212 mg/dL 0-14 H = 2888-6) 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 ID - [id number] ID - [id number] Lab Interpretation (test Abnormal code = 83863-1) [facility] [id number] 19:02:00 Test Item Value Reference Range Interpretation Comments Protein, Urine (test code 212 mg/dL 0-14 H = 2888-6) 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 ID - [id number] ID - [id number] Lab Interpretation (test Abnormal code = 26297-9) [facility] [id number] 19:02:00 Test Item Value Reference Range Interpretation Comments Protein, Urine (test code 212 mg/dL 0-14 H = 2888-6) 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 ID - [id number] ID - [id number] Lab Interpretation (test Abnormal code = 59759-0) [facility] [id number] 19:02:00 Test Item Value Reference Range Interpretation Comments Protein, Urine (test code 212 mg/dL 0-14 H = 2888-6) 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 ID - [id number] ID - [id number] Lab Interpretation (test Abnormal code = 34105-4) [facility] [id number] 19:02:00 Test Item Value Reference Range Interpretation Comments Protein, Urine (test code 212 mg/dL 0-14 H = 2888-6) 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 ID - [id number] ID - [id number] Lab Interpretation (test Abnormal code = 81784-1) [facility], random [id number] 19:02:00 Test Item Value Reference Range Interpretation Comments Protein, Urine (test code 212 mg/dL 0-14 H = 2888-6) 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 ID - [id number] ID - [id number] Lab Interpretation (test Abnormal code = 02343-4) [facility] [id number] 19:02:00 Test Item Value Reference Range Interpretation Comments Protein, Urine (test code 212 mg/dL 0-14 H = 2888-6) 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 ID - [id number] ID - [id number] Lab Interpretation (test Abnormal code = 43026-6) [facility] RANDOM [id number] 19:02:00 Test Item Value Reference Range Interpretation Comments PROTEIN, URINE (BEAKER) (test code 212 mg/dL 0-14 H = 1569) Electric Razor Mechanic ID - [id number] ID - [id number], random [id number] 18:49:00 Test Item Value Reference Range Interpretation Comments Creatinine, Ur 23.8 mg/dL (test code = 2161-8) ISSA (test code = Reference Range: No ISSA) NormalsOperator ID - [id number] [facility] [id number] 18:49:00 Test Item Value Reference Range Interpretation Comments Creatinine, Ur 23.8 mg/dL (test code = 2161-8) ISSA (test code = Reference Range: No ISSA) NormalsOperator ID - [id number] [facility], random [id number] 18:49:00 Test Item Value Reference Range Interpretation Comments Creatinine, Ur 23.8 mg/dL (test code = 2161-8) ISSA (test code = Reference Range: No ISSA) NormalsOperator ID - [id number] [facility], random [id number] 18:49:00 Test Item Value Reference Range Interpretation Comments Creatinine, Ur 23.8 mg/dL (test code = 2161-8) ISSA (test code = Reference Range: No ISSA) NormalsOperator ID - [id number] [facility] random [id number] 18:49:00 Test Item Value Reference Range Interpretation Comments Creatinine, Ur 23.8 mg/dL (test code = 2161-8) ISSA (test code = Reference Range: No ISSA) NormalsOperator ID - [id number] [facility] random [id number] 18:49:00 Test Item Value Reference Range Interpretation Comments Creatinine, Ur 23.8 mg/dL (test code = 2161-8) ISSA (test code = Reference Range: No ISSA) NormalsOperator ID - [id number] [facility] random [id number] 18:49:00 Test Item Value Reference Range Interpretation Comments Creatinine, Ur 23.8 mg/dL (test code = 2161-8) ISSA (test code = Reference Range: No ISSA) NormalsOperator ID - [id number] [facility]AT[facility]INE, RANDOM [id number] 18:49:00 Test Item Value Reference Range Interpretation Comments CREATININE URINE (BEAKER) (test 23.8 mg/dL code = 375) Reference Range: No NormalsOperator ID - [id number], random urine 2020-09-23 18:43:00 Test Item Value Reference Range Interpretation Comments ChlorideUr (test 117 meq/L code = 77386-8) ISSA (test code = Reference Range: No ISSA) NormalsOperator ID - [id number] [facility] random [id number] 18:43:00 Test Item Value Reference Range Interpretation Comments Potassium Urine 21.5 meq/L (test code = 2828-2) ISSA (test code = Reference Range: No ISSA) NormalsOperator ID - [id number] [facility] [id number] 18:43:00 Test Item Value Reference Range Interpretation Comments Sodium Urine (test 113 meq/L code = 2955-3) ISSA (test code = Reference Range: No ISSA) NormalsOperator ID - [id number] [facility], random [id number] 18:43:00 Test Item Value Reference Range Interpretation Comments ChlorideUr (test 117 meq/L code = 37111-1) ISSA (test code = Reference Range: No ISSA) NormalsOperator ID - [id number] [facility], random [id number] 18:43:00 Test Item Value Reference Range Interpretation Comments Potassium Urine 21.5 meq/L (test code = 2828-2) ISSA (test code = Reference Range: No ISSA) NormalsOperator ID - [id number] [facility] [id number] 18:43:00 Test Item Value Reference Range Interpretation Comments Sodium Urine (test 113 meq/L code = 2955-3) ISSA (test code = Reference Range: No ISSA) NormalsOperator ID - [id number] [facility], random [id number] 18:43:00 Test Item Value Reference Range Interpretation Comments ChlorideUr (test 117 meq/L code = 02996-3) ISSA (test code = Reference Range: No ISSA) NormalsOperator ID - [id number] [facility], random [id number] 18:43:00 Test Item Value Reference Range Interpretation Comments Potassium Urine 21.5 meq/L (test code = 2828-2) ISSA (test code = Reference Range: No ISSA) NormalsOperator ID - [id number] [facility] [id number] 18:43:00 Test Item Value Reference Range Interpretation Comments Sodium Urine (test 113 meq/L code = 2955-3) ISSA (test code = Reference Range: No ISSA) NormalsOperator ID - [id number] [facility], random [id number] 18:43:00 Test Item Value Reference Range Interpretation Comments ChlorideUr (test 117 meq/L code = 57253-6) ISSA (test code = Reference Range: No ISSA) NormalsOperator ID - [id number] [facility], random [id number] 18:43:00 Test Item Value Reference Range Interpretation Comments Potassium Urine 21.5 meq/L (test code = 2828-2) ISSA (test code = Reference Range: No ISSA) NormalsOperator ID - [id number] [facility] [id number] 18:43:00 Test Item Value Reference Range Interpretation Comments Sodium Urine (test 113 meq/L code = 2955-3) ISSA (test code = Reference Range: No ISSA) NormalsOperator ID - [id number] [facility], random [id number] 18:43:00 Test Item Value Reference Range Interpretation Comments ChlorideUr (test 117 meq/L code = 85947-8) ISSA (test code = Reference Range: No ISSA) NormalsOperator ID - [id number] [facility], random [id number] 18:43:00 Test Item Value Reference Range Interpretation Comments Potassium Urine 21.5 meq/L (test code = 2828-2) ISSA (test code = Reference Range: No ISSA) NormalsOperator ID - [id number] [facility] [id number] 18:43:00 Test Item Value Reference Range Interpretation Comments Sodium Urine (test 113 meq/L code = 2955-3) ISSA (test code = Reference Range: No ISSA) NormalsOperator ID - [id number] [facility], random [id number] 18:43:00 Test Item Value Reference Range Interpretation Comments ChlorideUr (test 117 meq/L code = 96916-9) ISSA (test code = Reference Range: No ISSA) NormalsOperator ID - [id number] [facility], random [id number] 18:43:00 Test Item Value Reference Range Interpretation Comments Potassium Urine 21.5 meq/L (test code = 2828-2) ISSA (test code = Reference Range: No ISSA) NormalsOperator ID - [id number] [facility] [id number] 18:43:00 Test Item Value Reference Range Interpretation Comments Sodium Urine (test 113 meq/L code = 2955-3) ISSA (test code = Reference Range: No ISSA) NormalsOperator ID - [id number] [facility], random [id number] 18:43:00 Test Item Value Reference Range Interpretation Comments ChlorideUr (test 117 meq/L code = 81669-1) ISSA (test code = Reference Range: No ISSA) NormalsOperator ID - [id number] [facility], random [id number] 18:43:00 Test Item Value Reference Range Interpretation Comments Potassium Urine 21.5 meq/L (test code = 2828-2) ISSA (test code = Reference Range: No ISSA) NormalsOperator ID - [id number] [facility] [id number] 18:43:00 Test Item Value Reference Range Interpretation Comments Sodium Urine (test 113 meq/L code = 2955-3) ISSA (test code = Reference Range: No ISSA) NormalsOperator ID - [id number] [facility]CHLORIDE, RANDOM [id number] 18:43:00 Test Item Value Reference Range Interpretation Comments CHLORIDE URINE (BEAKER) (test code 117 meq/L = 682) Reference Range: No NormalsOperator ID - [id number], RANDOM URINE 2020-09-23 18:43:00 Test Item Value Reference Range Interpretation Comments POTASSIUM URINE (BEAKER) (test 21.5 meq/L code = 195) Reference Range: No NormalsOperator ID - [id number], RANDOM [id number] 18:43:00 Test Item Value Reference Range Interpretation Comments SODIUM URINE (BEAKER) (test code = 113 meq/L 243) Reference Range: No NormalsOperator ID - [id number] w/Microscopic + Reflex to [id number] 17:44:00 Test Item Value Reference Range Interpretation Comments Color, UA (test code = Yellow 5778-6) Clarity, UA (test code = Clear 5767-9) Specific Ashley, UA 1.020 1.001-1.035 (test code = 5811-5) pH, UA (test code = 7.0 5.0-8.0 5803-2) Protein, UA (test code = 100 mg/dL Negative A 11333-8) Glucose, UA (test code = 100 mg/dL Negative A 365) Ketones, UA (test code = Negative Negative 9454-8) Bilirubin, UA (test code Negative Negative = 11121-7) Blood, UA (test code = Trace Negative A 72771-5) Nitrite, UA (test code = Negative Negative 5802-4) Leukocytes, UA (test Negative Negative code = 5799-2) Urobilinogen, UA (test 0.2 mg/dL 0.2-1 code = 39302-9) Bacteria, UA (test code None Seen = 81140-4) RBC, UA (test code = <5 See_Comment [Autom ated message] 799-7) The system [employer] generated this result transmit josé luis reference range : /HPF. The refer ence range was not u sed to interpret th is result as normal/abnormal . WBC, UA (test code = None Seen See_Comment [Autom ated message] 18092-4) The system [employer] generated this result transmit josé luis reference range : /HPF. The refer ence range was not u sed to interpret th is result as normal/abnormal . SQUAMOUS EPITHELIAL <5 See_Comment [Automa josé luis message] (test code = 69910-9) The sy stem which generated this result transmit josé luis reference range : /HPF. The refer ence range was not u sed to interpret th is result as normal/abnormal . Specimen Source (test code = 2795) Lab Interpretation (test Abnormal code = 40394-7) [facility]scopic + Reflex to Culture 2020-09-23 17:44:00 Test Item Value Reference Range Interpretation Comments Color, UA (test code = Yellow 5778-6) Clarity, UA (test code = Clear 5767-9) Specific Ashley, UA 1.020 1.001-1.035 (test code = 5811-5) pH, UA (test code = 7.0 5.0-8.0 5803-2) Protein, UA (test code = 100 mg/dL Negative A 25487-9) Glucose, UA (test code = 100 mg/dL Negative A 365) Ketones, UA (test code = Negative Negative 2514-8) Bilirubin, UA (test code Negative Negative = 23952-6) Blood, UA (test code = Trace Negative A 29191-1) Nitrite, UA (test code = Negative Negative 5802-4) Leukocytes, UA (test Negative Negative code = 5799-2) Urobilinogen, UA (test 0.2 mg/dL 0.2-1 code = 63205-7) Bacteria, UA (test code None Seen = 23634-6) RBC, UA (test code = <5 See_Comment [Autom ated message] 799-7) The system [employer] generated this result transmit josé luis reference range : /HPF. The refer ence range was not u sed to interpret th is result as normal/abnormal . WBC, UA (test code = None Seen See_Comment [Autom ated message] 77323-0) The system [employer] generated this result transmit josé luis reference range : /HPF. The refer ence range was not u sed to interpret th is result as normal/abnormal . SQUAMOUS EPITHELIAL <5 See_Comment [Automa josé luis message] (test code = 13081-0) The sy stem which generated this result transmit josé luis reference range : /HPF. The refer ence range was not u sed to interpret th is result as normal/abnormal . Specimen Source (test code = 2795) Lab Interpretation (test Abnormal code = 39281-4) [facility] + Reflex to Culture 2020-09-23 17:44:00 Test Item Value Reference Range Interpretation Comments Color, UA (test code = Yellow 5778-6) Clarity, UA (test code = Clear 5767-9) Specific Ashley, UA 1.020 1.001-1.035 (test code = 5811-5) pH, UA (test code = 7.0 5.0-8.0 5803-2) Protein, UA (test code = 100 mg/dL Negative A 62678-9) Glucose, UA (test code = 100 mg/dL Negative A 365) Ketones, UA (test code = Negative Negative 2514-8) Bilirubin, UA (test code Negative Negative = 92297-1) Blood, UA (test code = Trace Negative A 18160-8) Nitrite, UA (test code = Negative Negative 5802-4) Leukocytes, UA (test Negative Negative code = 5799-2) Urobilinogen, UA (test 0.2 mg/dL 0.2-1 code = 56294-5) Bacteria, UA (test code None Seen = 43538-7) RBC, UA (test code = <5 See_Comment [Autom ated message] 799-7) The system [employer] generated this result transmit josé luis reference range : /HPF. The refer ence range was not u sed to interpret th is result as normal/abnormal . WBC, UA (test code = None Seen See_Comment [Autom ated message] 19530-9) The system [employer] generated this result transmit josé luis reference range : /HPF. The refer ence range was not u sed to interpret th is result as normal/abnormal . SQUAMOUS EPITHELIAL <5 See_Comment [Automa josé luis message] (test code = 93221-8) The sy stem which generated this result transmit josé luis reference range : /HPF. The refer ence range was not u sed to interpret th is result as normal/abnormal . Specimen Source (test code = 2795) Lab Interpretation (test Abnormal code = 77209-0) [facility] Reflex to Culture 2020-09-23 17:44:00 Test Item Value Reference Range Interpretation Comments Color, UA (test code = Yellow 5778-6) Clarity, UA (test code = Clear 5767-9) Specific Ashley, UA 1.020 1.001-1.035 (test code = 5811-5) pH, UA (test code = 7.0 5.0-8.0 5803-2) Protein, UA (test code = 100 mg/dL Negative A 54976-9) Glucose, UA (test code = 100 mg/dL Negative A 365) Ketones, UA (test code = Negative Negative 2514-8) Bilirubin, UA (test code Negative Negative = 27133-9) Blood, UA (test code = Trace Negative A 22605-3) Nitrite, UA (test code = Negative Negative 5802-4) Leukocytes, UA (test Negative Negative code = 5799-2) Urobilinogen, UA (test 0.2 mg/dL 0.2-1 code = 70803-7) Bacteria, UA (test code None Seen = 50557-7) RBC, UA (test code = <5 See_Comment [Autom ated message] 799-7) The system [employer] generated this result transmit josé luis reference range : /HPF. The refer ence range was not u sed to interpret th is result as normal/abnormal . WBC, UA (test code = None Seen See_Comment [Autom ated message] 30695-2) The system [employer] generated this result transmit josé luis reference range : /HPF. The refer ence range was not u sed to interpret th is result as normal/abnormal . SQUAMOUS EPITHELIAL <5 See_Comment [Automa josé luis message] (test code = 20491-0) The sy stem which generated this result transmit josé luis reference range : /HPF. The refer ence range was not u sed to interpret th is result as normal/abnormal . Specimen Source (test code = 2795) Lab Interpretation (test Abnormal code = 82076-2) [facility] Reflex to Culture 2020-09-23 17:44:00 Test Item Value Reference Range Interpretation Comments Color, UA (test code = Yellow 5778-6) Clarity, UA (test code = Clear 5767-9) Specific Ashley, UA 1.020 1.001-1.035 (test code = 5811-5) pH, UA (test code = 7.0 5.0-8.0 5803-2) Protein, UA (test code = 100 mg/dL Negative A 63930-0) Glucose, UA (test code = 100 mg/dL Negative A 365) Ketones, UA (test code = Negative Negative 2514-8) Bilirubin, UA (test code Negative Negative = 28761-5) Blood, UA (test code = Trace Negative A 60482-9) Nitrite, UA (test code = Negative Negative 5802-4) Leukocytes, UA (test Negative Negative code = 5799-2) Urobilinogen, UA (test 0.2 mg/dL 0.2-1.0 code = 37017-5) Bacteria, UA (test code None Seen = 12571-1) RBC, UA (test code = <5 See_Comment [Autom ated message] 799-7) The system [employer] generated this result transmit josé luis reference range : /HPF. The refer ence range was not u sed to interpret th is result as normal/abnormal . WBC, UA (test code = None Seen See_Comment [Autom ated message] 41606-4) The system [employer] generated this result transmit josé luis reference range : /HPF. The refer ence range was not u sed to interpret th is result as normal/abnormal . SQUAMOUS EPITHELIAL <5 See_Comment [Automa josé luis message] (test code = 17443-3) The sy stem which generated this result transmit josé luis reference range : /HPF. The refer ence range was not u sed to interpret th is result as normal/abnormal . Specimen Source (test code = 2795) Lab Interpretation (test Abnormal code = 43825-3) [facility] Reflex to Culture 2020-09-23 17:44:00 Test Item Value Reference Range Interpretation Comments Color, UA (test code = Yellow 5778-6) Clarity, UA (test code = Clear 5767-9) Specific Ashley, UA 1.020 1.001-1.035 (test code = 5811-5) pH, UA (test code = 7.0 5.0-8.0 5803-2) Protein, UA (test code = 100 mg/dL Negative A 03098-6) Glucose, UA (test code = 100 mg/dL Negative A 365) Ketones, UA (test code = Negative Negative 2514-8) Bilirubin, UA (test code Negative Negative = 15266-9) Blood, UA (test code = Trace Negative A 72578-5) Nitrite, UA (test code = Negative Negative 5802-4) Leukocytes, UA (test Negative Negative code = 5799-2) Urobilinogen, UA (test 0.2 mg/dL 0.2-1.0 code = 88589-0) Bacteria, UA (test code None Seen = 88222-5) RBC, UA (test code = <5 See_Comment [Autom ated message] 799-7) The system [employer] generated this result transmit josé luis reference range : /HPF. The refer ence range was not u sed to interpret th is result as normal/abnormal . WBC, UA (test code = None Seen See_Comment [Autom ated message] 93171-9) The system [employer] generated this result transmit josé luis reference range : /HPF. The refer ence range was not u sed to interpret th is result as normal/abnormal . SQUAMOUS EPITHELIAL <5 See_Comment [Automa josé luis message] (test code = 06426-4) The sy stem which generated this result transmit josé luis reference range : /HPF. The refer ence range was not u sed to interpret th is result as normal/abnormal . Specimen Source (test code = 2795) Lab Interpretation (test Abnormal code = 69997-2) [facility] Reflex to Culture 2020-09-23 17:44:00 Test Item Value Reference Range Interpretation Comments Color, UA (test code = Yellow 5778-6) Clarity, UA (test code = Clear 5767-9) Specific Ashley, UA 1.020 1.001-1.035 (test code = 5811-5) pH, UA (test code = 7.0 5.0-8.0 5803-2) Protein, UA (test code = 100 mg/dL Negative A 90415-5) Glucose, UA (test code = 100 mg/dL Negative A 365) Ketones, UA (test code = Negative Negative 2514-8) Bilirubin, UA (test code Negative Negative = 53144-9) Blood, UA (test code = Trace Negative A 50689-4) Nitrite, UA (test code = Negative Negative 5802-4) Leukocytes, UA (test Negative Negative code = 5799-2) Urobilinogen, UA (test 0.2 mg/dL 0.2-1.0 code = 10076-1) Bacteria, UA (test code None Seen = 68952-8) RBC, UA (test code = <5 See_Comment [Autom ated message] 799-7) The system [employer] generated this result transmit josé luis reference range : /HPF. The refer ence range was not u sed to interpret th is result as normal/abnormal . WBC, UA (test code = None Seen See_Comment [Autom ated message] 33169-4) The system [employer] generated this result transmit josé luis reference range : /HPF. The refer ence range was not u sed to interpret th is result as normal/abnormal . SQUAMOUS EPITHELIAL <5 See_Comment [Automa josé luis message] (test code = 17066-8) The sy stem which generated this result transmit josé luis reference range : /HPF. The refer ence range was not u sed to interpret th is result as normal/abnormal . Specimen Source (test code = 2795) Lab Interpretation (test Abnormal code = 37500-4) [facility]FLEX URINE [id number] 17:44:00 Test Item Value Reference Range Interpretation [...] 1663) SOURCE(BEAKER) (test code = 2795) POCT-GLUCOSE [id number] 16:33:00 Test Item Value Reference Range Interpretation Comments POC-GLUCOSE METER 232 mg/dL 70-110 H : TESTED A T [facility] 1317 (BEAKER) (test code [facility] [address], = 1538) [facility] 77 478: Electric Razor Mechanic/Techni cornelia ID = [id number] for Mily Coy 2D Echo W/Doppler(CW/PW/Color)2020-09-23 14:27:41Ejection FractionSLEH ECHO HEARTLAB MKCKESSON CPACSInterface, External Ris In - 09/23/2020 2:27 PM C DTTransthoracic Echocardiography Report (TTE) Demographics Patient Name FRANDY FORD Date of Study 09/23/2020 MERRITT Gender Male Visit Number [id number] Race Room Number 428 Number Date of 1975 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 Procedure Type [...] Peak Gradient: 2.05 mmHg Estimated PASP: 47.75 mmHgNav[facility] Hospital [facility]2D Echo W/Doppler(CW/PW/Color)2020-09-23 14:27:41Ejection FractionSLE ECHO HEARTLAB [facility]2D Echo W/Doppler(CW/PW/Color)2020-09-23 14:27:41Ejection FractionSLE ECHO [facility]2D Echo W/Doppler(CW/PW/Color) 2020-09-23 14:27:41Ejection FractionSLE ECHO [facility]SE [id number] 11:54:00 Test Item Value Reference Range Interpretation Comments POC-GLUCOSE METER 133 mg/dL 70-110 H : TESTED A [facility] 131 ([facility]) (test code [facility] [address], = 1538) [facility] 77 478: Electric Razor Mechanic/Techni cornelia ID = [id number] for Mily Coy, FOOT, MIN 3 VIEWS, [id number] 08:48:00Reason for exam:->foot wound [facility] : 1975 [...] LacyMDReport Verified Date/Time: 09/23/2020 08:48:33 Reading Location: [facility] Radiology Reading Room POCT-GLUCOSE METER 2020-09-23 08:11:00 Test Item Value Reference Range Interpretation Comments POC-GLUCOSE METER 91 mg/dL 70-110 : TESTED A T [facility] 1317 (BEAKER) (test code = [address], 15[address]) [facility] 77 478: Electric Razor Mechanic/Techni cornelia ID = [id number] for Mily Coy Lzyikvvkyp3604-82-46 08:04:00 Test Item Value Reference Range Interpretation Comments Phosphorus (test code = 3.5 mg/dL 2.5-4.5 2777-1) 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 ID - [id number] Lab Interpretation (test Normal code = 47646-2) [facility]21-[facility]-28 08:04:00 Test Item Value Reference Range Interpretation Comments Phosphorus (test code = 3.5 mg/dL 2.5-4.5 2777-1) 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 ID - [id number] Lab Interpretation (test Normal code = 77461-4) [facility]2021-06-28 08:04:00 Test Item Value Reference Range Interpretation Comments Phosphorus (test code = 3.5 mg/dL 2.5-4.5 2777-1) 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 ID - [id number] Lab Interpretation (test Normal code = 75411-9) [facility]2021-06-28 08:04:00 Test Item Value Reference Range Interpretation Comments Phosphorus (test code = 3.5 mg/dL 2.5-4.5 2777-1) 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 ID - [id number] Lab Interpretation (test Normal code = 20536-3) [facility]2021-06-28 08:04:00 Test Item Value Reference Range Interpretation Comments Phosphorus (test code = 3.5 mg/dL 2.5-4.5 2777-1) 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 ID - [id number] Lab Interpretation (test Normal code = 80952-6) [facility]2021-06-28 08:04:00 Test Item Value Reference Range Interpretation Comments Phosphorus (test code = 3.5 mg/dL 2.5-4.5 2777-1) 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 ID - [id number] Lab Interpretation (test Normal code = 83987-9) [facility]2021-06-28 08:04:00 Test Item Value Reference Range Interpretation Comments Phosphorus (test code = 3.5 mg/dL 2.5-4.5 2777-1) 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 ID - [id number] Lab Interpretation (test Normal code = 27096-3) [facility]OS[facility]2021-06-28 08:04:00 Test Item Value Reference Range Interpretation Comments PHOSPHORUS (BEAKER) (test code = 3.5 mg/dL 2.5-4.5 604) Electric Razor Mechanic ID - [id number] METABOLIC [id number] 06:06:00 Test Item Value Reference Range Interpretation [...] S NOT APPLICABLE FOR DIALYSIS PATIEN TS. Electric Razor Mechanic ID - [id number] ID - [id number] ID - [id number] ID - [id number] ID - [id number] ID - LEYA76Oifbzpke ID - XECB27Olnylhaq ID - [id number] ID - CAMR48Onegkgiq ID - [id number] 05:56:00 Test Item Value Reference Range Interpretation Comments MAGNESIUM (BEAKER) (test code = 1.5 mg/dL 1.5-3.0 627) Electric Razor Mechanic ID - [id number] ID - [id number] ID - [id number] ID - [id number] CBC W/PLT COUNT & AUTO [id number] 05:39:00 Test Item Value Reference Range Interpretation [...] PERCENT (BEAKER) (test code = 2801) POCT-GLUCOSE [id number] 20:58:00 Test Item Value Reference Range Interpretation Comments POC-GLUCOSE METER 126 mg/dL 70-110 H : TESTED A T [facility] 1317 (BEAKER) ([facility] [address], = 1538) [place] [id number]: Electric Razor Mechanic/Techni cornelia ID = [id number] for Best amandacollins Nahunjose mariasylvia POCT-GLUCOSE [id number] 17:16:00 Test Item Value Reference Range Interpretation Comments POC-GLUCOSE METER 201 mg/dL 70-110 H : TESTED A T [facility] 1317 (BEAKER) (test [facility] [address], = 1538) [place] [id number]: Electric Razor Mechanic/Techni cornelia ID = [id number] for Mily Coy SARS-CoV2/RT-PCR (Asymptomatic ONLY)2020-09-22 12:08:00 Test Item Value Reference Range Interpretation Comments SARS-COV2/RT-PCR Negative Not Detected, Performanc e of the Xpert (test code = Negative, See Xpress 48100-8) external report SARS-CoV-2/F siddhartha/RSV test for linked [...] Healthcare Prov iders: https://www.cep heid.com/ Documents/Xpert %20Xpress %90ZWSW-NgH-0-F siddhartha-RSV/30 2-4508%20Rev.%2 0B%20HCP% 20Fact%20Sheet. pdf Fact Sheet for Healt hcare Patients: https://www.Innovative Card Solutionsid.CloudGenix/ Documents/Xpert %20Xpress %90UUES-IyY-2-F siddhartha-RSV/30 2-4507%20Rev.%2 0B%20Pati ent%20Fact%20Sh eet.pdf SARS-COV-2 SLSL Performed at:[facility] PERFORMING LAB Amy Graff hrryxp4879 (test code = Ignacio Sandersr 48653-0) [place] [address] ph: [phone] [facility] (Asymptomatic ONLY)2020-09-22 12:08:00 Test Item Value Reference Range Interpretation Comments SARS-COV2/RT-PCR Negative Not Detected, Performanc e of the Xpert (test code = Negative, See Xpress 67446-2) external report SARS-CoV-2/F siddhartha/RSV test for linked [...] Fact Sh eet for Healthcare Prov iders: https://www.[place]/ Documents/Xpert %20Xpress %34JDKN-RzW-7-F siddhartha-RSV/30 2-4508%20Rev.%2 0B%20HCP% 20Fact%20Sheet. pdf Fact Sheet for Healt hcare Patients: https://www.Perfect.CloudGenix/ Documents/Xpert %20Xpress %72LRPA-RiW-9-F siddhartha-RSV/30 2-4507%20Rev.%2 0B%20Pati ent%20Fact%20Sh eet.pdf SARS-COV-2 SLSL Performed at:[facility] PERFORMING LAB Amy fine1317 (test code = Ignacio Nelson 34689-1) [place] [address] ph: [phone] [facility] (Asymptomatic ONLY)2020-09-22 12:08:00 Test Item Value Reference Range Interpretation Comments SARS-COV2/RT-PCR Negative Not Detected, Performanc e of the Xpert (test code = Negative, See Xpress 63670-8) external report SARS-CoV-2/F siddhartha/RSV test for linked [...] Fact Sh eet for Healthcare Prov iders: https://www.Perfect.CloudGenix/ Documents/Xpert %20Xpress %95CZDI-YzH-7-F siddhartha-RSV/30 2-4508%20Rev.%2 0B%20HCP% 20Fact%20Sheet. pdf Fact Sheet for Healt hcare Patients: https://www.Perfect.CloudGenix/ Documents/Xpert %20Xpress %96MTUM-UwK-3-F siddhartha-RSV/30 2-4507%20Rev.%2 0B%20Pati ent%20Fact%20Sh eet.pdf SARS-COV-2 SLSL Performed at:[facility] PERFORMING LAB Amy fine1317 (test code = Ignacio Nelson 61254-6) [place] [address] ph: [phone] [facility] (Asymptomatic ONLY)2020-09-22 12:08:00 Test Item Value Reference Range Interpretation Comments SARS-COV2/RT-PCR Negative Not Detected, Performanc e of the Xpert (test code = Negative, See Xpress 05227-3) external report SARS-CoV-2/F siddhartha/RSV test for linked [...] Fact Sh eet for Healthcare Prov iders: https://www.Perfect.CloudGenix/ Documents/Xpert %20Xpress %12INJO-JaT-7-F siddhartha-RSV/30 2-4508%20Rev.%2 0B%20HCP% 20Fact%20Sheet. pdf Fact Sheet for Healt hcare Patients: https://www.Perfect.CloudGenix/ Documents/Xpert %20Xpress %65QKKA-GqT-6-F siddhartha-RSV/30 2-4507%20Rev.%2 0B%20Pati ent%20Fact%20Sh eet.pdf SARS-COV-2 SLSL Performed at:[facility]ING LAB [id number] (test code = Ignacio Nelson 32204-1) [place] [address] ph: [phone] [facility] (Asymptomatic ONLY)2020-09-22 12:08:00 Test Item Value Reference Range Interpretation Comments SARS-COV2/RT-PCR Negative Not Detected, Performanc e of the Xpert (test code = Negative, See Xpress 35025-4) external report SARS-CoV-2/F siddhartha/RSV test for linked [...] Fact Sh eet for Healthcare Prov iders: https://www.[place]/ Documents/Xpert %20Xpress %23JKVY-CgR-6-F siddhartha-RSV/30 2-4508%20Rev.%2 0B%20HCP% 20Fact%20Sheet. pdf Fact Sheet for Healt hcare Patients: https://www.[place]/ Documents/Xpert %20Xpress %91COXE-PdI-2-F siddhartha-RSV/30 2-4507%20Rev.%2 0B%20Pati ent%20Fact%20Sh eet.pdf SARS-COV-2 SLSL Performed at:[facility] PERFORMING LAB [facility] [id number] (test code = Pierre Aleta Nelson 40333-2) [place] [address] ph: [phone] [facility] (Asymptomatic ONLY)2020-09-22 12:08:00 Test Item Value Reference Range Interpretation Comments SARS-COV2/RT-PCR Negative Not Detected, Performanc e of the Xpert (test code = Negative, See Xpress 90040-4) external report SARS-CoV-2/F siddhartha/RSV test for linked [...] Fact Sh eet for Healthcare Prov iders: https://www.Perfect.com/ Documents/Xpert %20Xpress %32ISAS-MfF-4-F siddhartha-RSV/30 24508%20Rev.%2 0B%20HCP% 20Fact%20Sheet. pdf Fact Sheet for Healt hcare Patients: https://www.Perfect.CloudGenix/ Documents/Xpert %20Xpress %92KGVR-OnV-8-F siddhartha-RSV/30 2-4507%20Rev.%2 0B%20Pati ent%20Fact%20Sh eet.pdf SARS-COV-2 SLSL Performed at:[facility] PERFORMING LAB Amy fine1317 (test code = Ignacio Nelson 24817-4) [place] [address] ph: [phone] [facility] (Asymptomatic ONLY)2020-09-22 12:08:00 Test Item Value Reference Range Interpretation Comments SARS-COV2/RT-PCR Negative Not Detected, Performanc e of the Xpert (test code = Negative, See Xpress 45366-8) external report SARS-CoV-2/F siddhartha/RSV test for linked [...] Fact Sh eet for Healthcare Prov iders: https://www.[place]/ Documents/Xpert %20Xpress %79TFLX-ZmQ-8-F siddhartha-RSV/30 2-4508%20Rev.%2 0B%20HCP% 20Fact%20Sheet. pdf Fact Sheet for Healt hcare Patients: https://www.[place]/ Documents/Xpert %20Xpress %58MESJ-EpI-2-F siddhartha-RSV/30 2-4507%20Rev.%2 0B%20Pati ent%20Fact%20Sh eet.pdf SARS-COV-2 SLSL Performed at:[facility] PERFORMING LAB [facility] [id number] (test code = Ignacio Nelson 51906-7) [place] [address] ph: [phone] [facility]ARS-[facility]OV2/RT-PCR ([facility])2020-09-22 12:08:00 Test Item Value Reference Range Interpretation Comments SARS-COV2/RT-PCR Negative Not Detected, Performanc e of the Xpert (test code = Negative, See Xpress 7162554) external report SARS-CoV-2/F siddhartha/RSV test for linked [...] sooner.Fact She et for Healthcare Prov iders: https://www.Moneythink heid.com/ Documents/Xpert %20Xpress %93WYKZ-MhH-6-F siddhartha-RSV/30 2-4508%20Rev.%2 0B%20HCP% 20Fact%20Sheet. pdfFact Sheet for Healt hcare Patients: https://www.Innovative Card Solutionsid.com/ Documents/Xpert %20Xpress %99KSZC-MiY-0-F siddhartha-RSV/30 2-4507%20Rev.%2 0B%20Pati ent%20Fact%20Sh eet.pdf SARS-COV-2 SLSL Performed at:[facility] PERFORMING LAB [place] [facility] (test code = [facility] Leslie 9841445) [place] [address] ph: [phone] CBC W/PLT COUNT & AUTO [id number] 07:40:00 Test Item Value Reference Range Interpretation [...] H PERCENT (BEAKER) (test code = 2801) PT/[id number] 07:34:00 Test Item Value Reference Interpretation Comments [...] PTT (test code = 28.0 See_Comment Final 72167-4) Information (Auto Output) [Automated message] The system [...] valves. Lab Interpretation Abnormal (test code = 72796-7) [facility]/[id number] 07:34:00 Test Item Value Reference Interpretation Comments [...] PTT (test code = 28.0 See_Comment Final 46616-9) Information (Auto Output) [Automated message] The system [...] valves. Lab Interpretation Abnormal (test code = 23165-2) [facility]/[id number] 07:34:00 Test Item Value Reference Interpretation Comments [...] PTT (test code = 28.0 See_Comment Final 50387-3) Information (Auto Output) [Automated message] The system [...] valves. Lab Interpretation Abnormal (test code = 33894-0) [facility]/[id number] 07:34:00 Test Item Value Reference Interpretation Comments [...] PTT (test code = 28.0 See_Comment Final 84581-4) Information (Auto Output) [Automated message] The system [...] valves. Lab Interpretation Abnormal (test code = 61822-4) [facility]/[id number] 07:34:00 Test Item Value Reference Interpretation Comments [...] PTT (test code = 28.0 See_Comment Final 08304-1) Information (Auto Output) [Automated message] The system [...] valves. Lab Interpretation Abnormal (test code = 93324-9) [facility]/[id number] 07:34:00 Test Item Value Reference Interpretation Comments [...] PTT (test code = 28.0 See_Comment Final 31408-9) Information (Auto Output) [Automated message] The system [...] valves. Lab Interpretation Abnormal (test code = 27199-2) [facility]/[id number] 07:34:00 Test Item Value Reference Interpretation Comments [...] PTT (test code = 28.0 See_Comment Final 78303-9) Information (Auto Output) [Automated message] The system [...] valves. 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 ID - [id number] [id number] 07:29:00 Test Item Value Reference Range Interpretation Comments Troponin I (test code = 0.05 ng/mL 0-0.15 00232-5) ISSA (test code = ISSA) Troponin I [...] failure, acidosis, acute neurological disease, and persistent tachyarrhythmia.[facility] ID - [id number] Lab Interpretation (test Normal code = 55904-7) [facility] [id number] 07:29:00 Test Item Value Reference Range Interpretation Comments Troponin I (test code = 0.05 ng/mL 0-0.15 70658-9) ISSA (test code = ISSA) Troponin I [...] failure, acidosis, acute neurological disease, and persistent tachyarrhythmia.[facility] ID - [id number] Lab Interpretation (test Normal code = 02903-3) [facility] [id number] 07:29:00 Test Item Value Reference Range Interpretation Comments Troponin I (test code = 0.05 ng/mL 0-0.15 84426-5) ISSA (test code = ISSA) Troponin I [...] failure, acidosis, acute neurological disease, and persistent tachyarrhythmia.[facility] ID - [id number] Lab Interpretation (test Normal code = 76104-3) [facility] [id number] 07:29:00 Test Item Value Reference Range Interpretation Comments Troponin I (test code = 0.05 ng/mL 0-0.15 38470-6) ISSA (test code = ISSA) Troponin I [...] failure, acidosis, acute neurological disease, and persistent tachyarrhythmia.[facility] ID - [id number] Lab Interpretation (test Normal code = 20359-5) [facility] [id number] 07:29:00 Test Item Value Reference Range Interpretation Comments Troponin I (test code = 0.05 ng/mL 0.00-0.15 72195-6) ISSA (test code = ISSA) Troponin I [...] failure, acidosis, acute neurological disease, and persistent tachyarrhythmia.[facility] ID - [id number] Lab Interpretation (test Normal code = 33576-9) [facility] [id number] 07:29:00 Test Item Value Reference Range Interpretation Comments Troponin I (test code = 0.05 ng/mL 0.00-0.15 94532-6) ISSA (test code = ISSA) Troponin I [...] failure, acidosis, acute neurological disease, and persistent tachyarrhythmia.[facility] ID - [id number] Lab Interpretation (test Normal code = 67989-2) [facility] [id number] 07:29:00 Test Item Value Reference Range Interpretation Comments Troponin I (test code = 0.05 ng/mL 0.00-0.15 21866-7) ISSA (test code = ISSA) Troponin I [...] failure, acidosis, acute neurological disease, and persistent tachyarrhythmia.[facility] ID - [id number] Lab Interpretation (test Normal code = 44931-5) [facility] [id number] 07:29:00 Test Item Value Reference Range Interpretation [...] failure, acidosis, acute neurological disease, and persistent tachyarrhythmia.Electric Razor Mechanic ID - [id number] METABOLIC [id number] 07:25:00 Test Item Value Reference Range Interpretation [...] S NOT APPLICABLE FOR DIALYSIS PATIEN TS. 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 1975 [...] 6:44 AMXR chest 1 view portable / lpnxugy0137-31-21 06:44:00Interface, External Ris In - 09/22/2020 6:47 [...] cardiomegaly.Signed: Moose Petersen Verified Date/Time: 09/22/2020 06:44:53 [facility] / sakszxs3347-72-47 06:44:00 Interface, External Ris In - 09/22/2020 [...] Signed: Moose Petersen Verified Date/Time: 09/22/2020 06:44:53 [facility] / biinksw6862-20-26 06:44:00 Interface, External Ris In - 09/22/2020 [...] Signed: Moose Petersen Verified Date/Time: 09/22/2020 06:44:53 [facility] view portable / tojcojl0540-13-28 06:44:00 Interface, External Ris In - 09/22/2020 [...] effusion. No pneumothorax.Mild cardiomegaly. Signed: Moose Petersen MDRmathew Verified Date/Time: 09/22/2020 06:44:53 [facility] Coihvsgwhwywxb7074-97-52 06:40:53 Test Item Value Reference Range Interpretation [...] 74 BPM.Abnormal conduction noted: LAFB.T waves abnormal. [place] is normal. Other findings include: prolonged QTc interval. Clinical Impression: abnormal ECG Lab Interpretation Abnormal (test code = 50831-1) [facility] [id number] 06:40:53 Test Item Value Reference Range Interpretation [...] 74 BPM.Abnormal conduction noted: LAFB.T waves abnormal. [place] is normal. Other findings include: prolonged QTc interval. Clinical Impression: abnormal ECG Lab Interpretation Abnormal (test code = 96761-9) [facility] Rvmbgbmmgyxsxz0890-43-23 06:40:53 Test Item Value Reference Range Interpretation [...] 74 BPM.Abnormal conduction noted: LAFB.T waves abnormal. [place] is normal. Other findings include: prolonged QTc interval. Clinical Impression: abnormal ECG Lab Interpretation Abnormal (test code = 63870-2) [facility] Clbjwbaxwsbuwi6104-23-04 06:40:53 Test Item Value Reference Range Interpretation [...] 74 BPM.Abnormal conduction noted: LAFB.T waves abnormal. [place] is normal. Other findings include: prolonged QTc interval. Clinical Impression: abnormal ECG Lab Interpretation Abnormal (test code = 83292-8) [facility] Jgembkjywdlngg2197-33-78 06:40:53 Test Item Value Reference Range Interpretation [...] 74 BPM.Abnormal conduction noted: LAFB.T waves abnormal. [place] is normal. Other findings include: prolonged QTc interval. Clinical Impression: abnormal ECG Lab Interpretation Abnormal (test code = 76513-0) [facility] Vfstzwzohrjfhv4302-06-80 06:40:53 Test Item Value Reference Range Interpretation [...] 74 BPM.Abnormal conduction noted: LAFB.T waves abnormal. [place] is normal. Other findings include: prolonged QTc interval. Clinical Impression: abnormal ECG Lab Interpretation Abnormal (test code = 49387-5) [facility] Nvxrmurirponko0795-94-67 06:40:53 Test Item Value Reference Range Interpretation [...] 74 BPM.Abnormal conduction noted: LAFB.T waves abnormal. [place] is normal. Other findings include: prolonged QTc interval. Clinical Impression: abnormal ECG Lab Interpretation Abnormal (test code = 45003-4) [facility]-JQTDUED7695-28-09 00:00:00Ordered by an unspecified provider.[facility]89 00:00:00 Ordered by an unspecified provider.[facility] 2020-09-22 00:00:00Ordered by an unspecified provider.[facility]MOWZRJB3955-69-06 00:00:00Ordered by an unspecified provider.[facility] Description: Natriuretic peptide B [Mass/volume] in Serum or Webijl6654-77-56 15:06:00 Test Item Value Reference Range Interpretation Comments B-Type Natriuretic Peptide (test 614.6 pg/mL 0.0-100.0 H code = 31923-9) [facility] Description: Natriuretic peptide B [Mass/volume] in Serum or Vwwzef2568-41-18 15:06:00 Test Item Value Reference Range Interpretation Comments B-Type Natriuretic Peptide (test 614.6 pg/mL 0.0-100.0 H code = 65111-7) [facility] Description: Natriuretic peptide B [Mass/volume] in Serum or Bltfym1278-54-95 15:06:00 Test Item Value Reference Range Interpretation Comments B-Type Natriuretic Peptide (test 614.6 pg/mL 0.0-100.0 H code = 90312-2) [facility] Description: Natriuretic peptide B [Mass/volume] in Serum or Hvftik4645-69-30 15:06:00 Test Item Value Reference Range Interpretation Comments B-Type Natriuretic Peptide (test 614.6 pg/mL 0.0-100.0 H code = 10286-9) [facility] B [Mass/volume] in Serum or Ytyyah9708-50-40 15:06:00 Test Item Value Reference Range Interpretation Comments B-Type Natriuretic Peptide (test 614.6 pg/mL 0.0-100.0 H code = 29327-8) [facility] Natriuretic peptide B [Mass/volume] in Serum or Rqijsj7332-17-90 15:06:00 Test Item Value Reference Range Interpretation Comments B-Type Natriuretic Peptide (test 614.6 pg/mL 0.0-100.0 H code = 40794-8) [facility] Description: Natriuretic peptide B [Mass/volume] in Serum or Lwmyuh1600-54-13 15:06:00 Test Item Value Reference Range Interpretation Comments B-Type Natriuretic Peptide (test 614.6 pg/mL 0.0-100.0 H code = 38749-2) [facility] Description: Natriuretic peptide B [Mass/volume] in Serum or Haeomw1980-16-01 15:06:00 Test Item Value Reference Range Interpretation Comments B-Type Natriuretic Peptide (test 614.6 pg/mL 0.0-100.0 H code = 27695-0) [facility] Description: Natriuretic peptide B [Mass/volume] in Serum or Aepqjp3978-65-45 15:06:00 Test Item Value Reference Range Interpretation Comments B-Type Natriuretic Peptide (test 614.6 pg/mL 0.0-100.0 H code = 41884-8) [facility] Description: Natriuretic peptide B [Mass/volume] in Serum or Swblej1629-15-64 15:06:00 Test Item Value Reference Range Interpretation Comments B-Type Natriuretic Peptide (test 614.6 pg/mL 0.0-100.0 H code = 20816-9) [facility] Description: Natriuretic peptide B [Mass/volume] in Serum or Ocfkxd3940-84-20 15:06:00 Test Item Value Reference Range Interpretation Comments B-Type Natriuretic Peptide (test 614.6 pg/mL 0.0-100.0 H code = 54851-6) [facility] Natri[facility]tic [facility] B [Mass/volume] in Serum or Ozmpaq2918-86-05 15:06:00 Test Item Value Reference Range Interpretation Comments B-Type Natriuretic Peptide (test 614.6 pg/mL 0.0-100.0 H code = 94263-1) [facility] Description: Natriuretic peptide B [Mass/volume] in Serum or Pnqhro5237-85-64 15:06:00 Test Item Value Reference Range Interpretation Comments B-Type Natriuretic Peptide (test 614.6 pg/mL 0.0-100.0 H code = 06288-5) [facility] Description: Natriuretic peptide B [Mass/volume] in Serum or Uiqcwx7918-19-22 15:06:00 Test Item Value Reference Range Interpretation Comments B-Type Natriuretic Peptide (test 614.6 pg/mL 0.0-100.0 H code = 74800-8) [facility] Description: Natriuretic peptide B [Mass/volume] in Serum or Rhwhrh8685-15-54 15:06:00 Test Item Value Reference Range Interpretation Comments B-Type Natriuretic Peptide (test 614.6 pg/mL 0.0-100.0 H code = 05212-3) [facility] Description: Natriuretic peptide B [Mass/volume] in Serum or Tcjsnn9014-46-29 15:06:00 Test Item Value Reference Range Interpretation Comments B-Type Natriuretic Peptide (test 614.6 pg/mL 0.0-100.0 H code = 32976-2) [facility] Description: Natriuretic peptide B [Mass/volume] in Serum or Afmjuh0814-72-98 15:06:00 Test Item Value Reference Range Interpretation Comments B-Type Natriuretic Peptide (test 614.6 pg/mL 0.0-100.0 H code = 28104-7) [facility] Description: Natriuretic peptide B [Mass/volume] in Serum or Uhjljf2264-29-61 15:06:00 Test Item Value Reference Range Interpretation Comments B-Type Natriuretic Peptide (test 614.6 pg/mL 0.0-100.0 H code = 92877-5) [facility] Description: Natriuretic peptide B [Mass/volume] in Serum or Cqccjo0006-84-40 15:06:00 Test Item Value Reference Range Interpretation Comments B-Type Natriuretic Peptide (test 614.6 pg/mL 0.0-100.0 H code = 68493-8) [facility] Description: Natriuretic peptide B [Mass/volume] in Serum or Faaoav8452-95-29 15:06:00 Test Item Value Reference Range Interpretation Comments B-Type Natriuretic Peptide (test 614.6 pg/mL 0.0-100.0 H code = 27667-2) [facility] Description: Lipid Nmfui2947-69-65 01:45:00 Test Item Value Reference Range Interpretation Comments Cholesterol, Total (test code = 207 mg/dL 100-199 H 3-3) Triglycerides (test code = 2571-8) 126 mg/dL 0-149 HDL Cholesterol (test code = 37 mg/dL >39 L 5-9) VLDL Cholesterol Renuka (test code = 23 mg/dL 5-40 48475-8) LDL Chol Calc (NIH) (test code = 147 mg/dL 0-99 H 43103-4) Comment: (test code = 06687-4) [facility] Description: Lipid Fvhtg2264-50-70 01:45:00 Test Item Value Reference Range Interpretation Comments Cholesterol, Total (test code = 207 mg/dL 100-199 H 3-3) Triglycerides (test code = 2571-8) 126 mg/dL 0-149 HDL Cholesterol (test code = 37 mg/dL >39 L 5-9) VLDL Cholesterol Renuka (test code = 23 mg/dL 5-40 03153-8) LDL Chol Calc (NIH) (test code = 147 mg/dL 0-99 H 19544-9) Comment: (test code = 32676-4) [facility] Description: Lipid Xpzvu7596-92-97 01:45:00 Test Item Value Reference Range Interpretation Comments Cholesterol, Total (test code = 207 mg/dL 100-199 H 3-3) Triglycerides (test code = 2571-8) 126 mg/dL 0-149 HDL Cholesterol (test code = 37 mg/dL >39 L 5-9) VLDL Cholesterol Renuka (test code = 23 mg/dL 5-40 49085-9) LDL Chol Calc (NIH) (test code = 147 mg/dL 0-99 H 73046-9) Comment: (test code = 19367-9) [facility] Description: Lipid Hwuxy5131-44-24 01:45:00 Test Item Value Reference Range Interpretation Comments Cholesterol, Total (test code = 207 mg/dL 100-199 H 2093-3) Triglycerides (test code = 2571-8) 126 mg/dL 0-149 HDL Cholesterol (test code = 37 mg/dL >39 L 2085-9) VLDL Cholesterol Renuka (test code = 23 mg/dL 5-40 72977-4) LDL Chol Calc (NIH) (test code = 147 mg/dL 0-99 H 05909-5) Comment: (test code = 46974-4) [facility] Description: Lipid Nurds2142-59-46 01:45:00 Test Item Value Reference Range Interpretation Comments Cholesterol, Total (test code = 207 mg/dL 100-199 H 2093-3) Triglycerides (test code = 2571-8) 126 mg/dL 0-149 HDL Cholesterol (test code = 37 mg/dL >39 L 2085-9) VLDL Cholesterol Renuka (test code = 23 mg/dL 5-40 14215-9) LDL Chol Calc (NIH) (test code = 147 mg/dL 0-99 H 95822-6) Comment: (test code = 89204-6) [facility] Description: Lipid Fwsea1245-98-62 01:45:00 Test Item Value Reference Range Interpretation Comments Cholesterol, Total (test code = 207 mg/dL 100-199 H 2093-3) Triglycerides (test code = 2571-8) 126 mg/dL 0-149 HDL Cholesterol (test code = 37 mg/dL >39 L 2085-9) VLDL Cholesterol Renuka (test code = 23 mg/dL 5-40 94765-5) LDL Chol Calc (NIH) (test code = 147 mg/dL 0-99 H 28895-4) Comment: (test code = 70679-7) [facility] Description: Lipid Rvrut7647-05-56 01:45:00 Test Item Value Reference Range Interpretation Comments Cholesterol, Total (test code = 207 mg/dL 100-199 H 2093-3) Triglycerides (test code = 2571-8) 126 mg/dL 0-149 HDL Cholesterol (test code = 37 mg/dL >39 L 2085-9) VLDL Cholesterol [place] (test code = 23 mg/dL 5-40 69472-2) LDL Chol Calc (NIH) (test code = 147 mg/dL 0-99 H 42629-7) Comment: (test code = 93041-0) [facility] Description: Lipid Lkexe4843-39-49 01:45:00 Test Item Value Reference Range Interpretation Comments Cholesterol, Total (test code = 207 mg/dL 100-199 H 2093-3) Triglycerides (test code = 2571-8) 126 mg/dL 0-149 HDL Cholesterol (test code = 37 mg/dL >39 L 5-9) VLDL Cholesterol Renuka (test code = 23 mg/dL 5-40 02793-5) LDL Chol Calc (NIH) (test code = 147 mg/dL 0-99 H 22810-2) Comment: (test code = 26786-7) [facility] Description: Lipid Whmtk0559-00-28 01:45:00 Test Item Value Reference Range Interpretation Comments Cholesterol, Total (test code = 207 mg/dL 100-199 H 2093-3) Triglycerides (test code = 2571-8) 126 mg/dL 0-149 HDL Cholesterol (test code = 37 mg/dL >39 L 5-9) VLDL Cholesterol Renuka (test code = 23 mg/dL 5-40 51432-6) LDL Chol Calc (NIH) (test code = 147 mg/dL 0-99 H 99507-5) Comment: (test code = 05961-5) [facility] Description: Lipid Goemq3390-32-90 01:45:00 Test Item Value Reference Range Interpretation Comments Cholesterol, Total (test code = 207 mg/dL 100-199 H 2093-3) Triglycerides (test code = 2571-8) 126 mg/dL 0-149 HDL Cholesterol (test code = 37 mg/dL >39 L 5-9) VLDL Cholesterol Renuka (test code = 23 mg/dL 5-40 90187-7) LDL Chol Calc (NIH) (test code = 147 mg/dL 0-99 H 52028-0) Comment: (test code = 88208-2) [facility] Description: Lipid Srejw3603-21-57 01:45:00 Test Item Value Reference Range Interpretation Comments Cholesterol, Total (test code = 207 mg/dL 100-199 H 2093-3) Triglycerides (test code = 2571-8) 126 mg/dL 0-149 HDL Cholesterol (test code = 37 mg/dL >39 L 5-9) VLDL Cholesterol Renuka (test code = 23 mg/dL 5-40 60147-7) LDL Chol Calc (NIH) (test code = 147 mg/dL 0-99 H 66791-4) Comment: (test code = 85761-2) [facility] Description: Lipid Vcvqi0917-01-06 01:45:00 Test Item Value Reference Range Interpretation Comments Cholesterol, Total (test code = 207 mg/dL 100-199 H 3-3) Triglycerides (test code = 2571-8) 126 mg/dL 0-149 HDL Cholesterol (test code = 37 mg/dL >39 L 5-9) VLDL Cholesterol [place] (test code = 23 mg/dL 5-40 48853-5) LDL Chol Calc (NIH) (test code = 147 mg/dL 0-99 H 75046-6) Comment: (test code = 95474-1) [facility] Description: Lipid Juvth9557-32-97 01:45:00 Test Item Value Reference Range Interpretation Comments Cholesterol, Total (test code = 207 mg/dL 100-199 H 3-3) Triglycerides (test code = 2571-8) 126 mg/dL 0-149 HDL Cholesterol (test code = 37 mg/dL >39 L 5-9) VLDL Cholesterol Renuka (test code = 23 mg/dL 5-40 99594-3) LDL Chol Calc (NIH) (test code = 147 mg/dL 0-99 H 91952-3) Comment: (test code = 81092-7) [facility] Description: Lipid Jaopy2770-62-89 01:45:00 Test Item Value Reference Range Interpretation Comments Cholesterol, Total (test code = 207 mg/dL 100-199 H 3-3) Triglycerides (test code = 2571-8) 126 mg/dL 0-149 HDL Cholesterol (test code = 37 mg/dL >39 L 5-9) VLDL Cholesterol Renuka (test code = 23 mg/dL 5-40 34377-9) LDL Chol Calc (NIH) (test code = 147 mg/dL 0-99 H 84943-7) Comment: (test code = 24140-3) [facility] Description: Lipid Dnudr5883-67-89 01:45:00 Test Item Value Reference Range Interpretation Comments Cholesterol, Total (test code = 207 mg/dL 100-199 H 3-3) Triglycerides (test code = 2571-8) 126 mg/dL 0-149 HDL Cholesterol (test code = 37 mg/dL >39 L 2085-9) VLDL Cholesterol [place] (test code = 23 mg/dL 5-40 57494-3) LDL Chol Calc (NIH) (test code = 147 mg/dL 0-99 H 37270-7) Comment: (test code = 75432-9) [facility] Description: Lipid Eswfn1083-40-25 01:45:00 Test Item Value Reference Range Interpretation Comments Cholesterol, Total (test code = 207 mg/dL 100-199 H 3-3) Triglycerides (test code = 2571-8) 126 mg/dL 0-149 HDL Cholesterol (test code = 37 mg/dL >39 L 2085-9) VLDL Cholesterol [place] (test code = 23 mg/dL 5-40 20687-3) LDL Chol Calc (NIH) (test code = 147 mg/dL 0-99 H 30419-7) Comment: (test code = 88030-1) [facility] Description: Lipid Twgjx2829-27-44 01:45:00 Test Item Value Reference Range Interpretation Comments Cholesterol, Total (test code = 207 mg/dL 100-199 H 3-3) Triglycerides (test code = 2571-8) 126 mg/dL 0-149 HDL Cholesterol (test code = 37 mg/dL >39 L 2085-9) VLDL Cholesterol [place] (test code = 23 mg/dL 5-40 41617-2) LDL Chol Calc (NIH) (test code = 147 mg/dL 0-99 H 80013-2) Comment: (test code = 28189-2) [facility] Description: Lipid Evlje8596-12-21 01:45:00 Test Item Value Reference Range Interpretation Comments Cholesterol, Total (test code = 207 mg/dL 100-199 H 2093-3) Triglycerides (test code = 2571-8) 126 mg/dL 0-149 HDL Cholesterol (test code = 37 mg/dL >39 L 2085-9) VLDL Cholesterol [place] (test code = 23 mg/dL 5-40 76855-2) LDL Chol Calc (NIH) (test code = 147 mg/dL 0-99 H 16700-3) Comment: (test code = 16091-9) [facility] Description: Lipid Ttuqp1857-77-89 01:45:00 Test Item Value Reference Range Interpretation Comments Cholesterol, Total (test code = 207 mg/dL 100-199 H 2093-3) Triglycerides (test code = 2571-8) 126 mg/dL 0-149 HDL Cholesterol (test code = 37 mg/dL >39 L 2085-9) VLDL Cholesterol Renuka (test code = 23 mg/dL 5-40 49757-0) LDL Chol Calc (NIH) (test code = 147 mg/dL 0-99 H 75998-6) Comment: (test code = 03433-6) [facility] Description: Lipid Rmajv8350-15-01 01:45:00 Test Item Value Reference Range Interpretation Comments Cholesterol, Total (test code = 207 mg/dL 100-199 H 2093-3) Triglycerides (test code = 2571-8) 126 mg/dL 0-149 HDL Cholesterol (test code = 37 mg/dL >39 L 5-9) VLDL Cholesterol Renuka (test code = 23 mg/dL 5-40 12980-1) LDL Chol Calc (NIH) (test code = 147 mg/dL 0-99 H 10625-1) Comment: (test code = 14274-3) [facility] Description: Comp. Metabolic Panel (14)2020-08-16 01:19:00 Test Item Value Reference Range Interpretation Comments Glucose (test code 424 mg/dL 65-99 H = 2345-7) BUN (test code = 27 mg/dL 6-24 H 3094-0) Creatinine (test 1.88 mg/dL 0.76-1.27 H code = 2160-0) eGFR If NonAfricn 42 >59 L Am (test code = mL/min/1.73 12774-7) eGFR If Africn Am 48 >59 L [facility] currently (test code = mL/min/1.73 [place] [address]-4) compliance with the current recommendations of the [employer] Kid[employer]. [place] will update re porting as new guidelin es are published from the NKF-ASN Task force.
<br/ >Perfor med by:
[facility] [place] [facility] (HD)

BUN/Creatinine 14 9-20 Ratio (test code = 3097-3) Sodium (test code = 138 mmol/L 496-212 6192-2) Potassium (test 4.2 mmol/L 3.5-5.2 code = 2823-3) Chloride (test code 98 mmol/L 96-106 = 2075-0) Carbon Dioxide, 28 mmol/L 20-29 Total (test code = 2027-9) Calcium (test code 8.4 mg/dL 8.7-10.2 L = 20168-3) Protein, Total 6.1 g/dL 6.0-8.5 (test code = 2885-2) Albumin (test code 3.0 g/dL 4.0-5.0 L = 1751-7) Globulin, Total 3.1 g/dL 1.5-4.5 (test code = 38287-8) A/G Ratio (test 1.0 1.2-2.2 L code = 1759-0) Bilirubin, Total 0.6 mg/dL 0.0-1.2 (test code = 1974-2) Alkaline 130 IU/L 48-121 H Phosphatase (test Pl ease note code = 6768-6) reference int erval change
<b r/>Perf ormed by:
[facility] ([place])

AST (SGOT) (test 15 IU/L 0-40 code = 1920-8) ALT (SGPT) (test 18 IU/L 0-44 code = 1742-6) [facility] Description: Comp. Metabolic Panel (14)2020-08-16 01:19:00 Test Item Value Reference Range Interpretation Comments Glucose (test code 424 mg/dL 65-99 H = 2345-7) BUN (test code = 27 mg/dL 6-24 H 3094-0) Creatinine (test 1.88 mg/dL 0.76-1.27 H code = 2160-0) eGFR If NonAfricn 42 >59 L Am (test code = mL/min/1.73 37655-0) eGFR If Africn Am 48 >59 L [facility] currently (test code = mL/min/1.73 [place] [address]282-8) compliance with the current recommendations of the [employer] Kid[employer]. [place] will update re porting as new guidelin es are published from the NKF-ASN Task force.
<br/ >Perfor med by:
[facility] [place] ([place])

BUN/Creatinine 14 9-20 Ratio (test code = 3097-3) Sodium (test code = 138 mmol/L 572-305 0808-2) Potassium (test 4.2 mmol/L 3.5-5.2 code = 2823-3) Chloride (test code 98 mmol/L 96-106 = 2075-0) Carbon Dioxide, 28 mmol/L 20-29 Total (test code = 2027-) Calcium (test code 8.4 mg/dL 8.7-10.2 L = 66286-0) Protein, Total 6.1 g/dL 6.0-8.5 (test code = 2885-2) Albumin (test code 3.0 g/dL 4.0-5.0 L = 1751-7) Globulin, Total 3.1 g/dL 1.5-4.5 (test code = 67087-0) A/G Ratio (test 1.0 1.2-2.2 L code = 1759-0) Bilirubin, Total 0.6 mg/dL 0.0-1.2 (test code = 1975-2) Alkaline 130 IU/L 48-121 H Phosphatase (test Pl ease note code = 6768-6) reference int erval change
<b r/>Perf ormed by:
[facility] ([place])

AST (SGOT) (test 15 IU/L 0-40 code = 1920-8) ALT (SGPT) (test 18 IU/L 0-44 code = 1742-6) [facility]: Comp. Met[facility] (2020-08-16 01:19:00 Test Item Value Reference Range Interpretation Comments Glucose (test code 424 mg/dL 65-99 H = 2345-7) BUN (test code = 27 mg/dL 6-24 H 3094-0) Creatinine (test 1.88 mg/dL 0.76-1.27 H code = 2160-0) eGFR If NonAfricn 42 >59 L Am (test code = mL/min/1.73 39633-0) eGFR If Africn Am 48 >59 L [facility] currently (test code = mL/min/1.73 [place] [address]-5) compliance with the current recommendations of the [employer] Kid[employer]. [place] will update re porting as new guidelin es are published from the NKF-ASN Task force.
<br/ >Perfor med by:
[facility] [place] [facility] (HD)

BUN/Creatinine 14 9-20 Ratio (test code = 3097-3) Sodium (test code = 138 mmol/L 969-282 3614-2) Potassium (test 4.2 mmol/L 3.5-5.2 code = 2823-3) Chloride (test code 98 mmol/L 96-106 = 2075-0) Carbon Dioxide, 28 mmol/L 20-29 Total (test code = 2027-) Calcium (test code 8.4 mg/dL 8.7-10.2 L = 94219-1) Protein, Total 6.1 g/dL 6.0-8.5 (test code = 2885-2) Albumin (test code 3.0 g/dL 4.0-5.0 L = 1751-7) Globulin, Total 3.1 g/dL 1.5-4.5 (test code = 28195-4) A/G Ratio (test 1.0 1.2-2.2 L code [...] >59 L Am (test code = mL/min/1.73 82270-6) eGFR If Africn Am 48 >59 L [facility] currently (test code = mL/min/1.73 [place] [address]-1) compliance with the current recommendations of the [employer] Kid[employer]. [place] will update re porting as new guidelin es are published from the NKF-ASN Task force.
<br/ >Perfor med by:
[facility] [place] [facility] (HD)

BUN/Creatinine 14 9-20 Ratio (test code = 3097-3) Sodium (test code = 138 mmol/L 459-543 5526-2) Potassium (test 4.2 mmol/L 3.5-5.2 code = 2823-3) Chloride (test code 98 mmol/L 96-106 = 2075-0) Carbon Dioxide, 28 mmol/L 20-29 Total (test code = 2027-) Calcium (test code 8.4 mg/dL 8.7-10.2 L = 91863-8) Protein, Total 6.1 g/dL 6.0-8.5 (test code = 2885-2) Albumin (test code 3.0 g/dL 4.0-5.0 L = 1751-7) Globulin, Total 3.1 g/dL 1.5-4.5 (test code = 53789-8) A/G Ratio (test 1.0 1.2-2.2 L code = 1759-0) Bilirubin, Total 0.6 mg/dL 0.0-1.2 (test code = 1975-2) Alkaline 130 IU/L 48-121 H Phosphatase (test Pl ease note code = 6768-6) reference int erval change
<b r/>Perf ormed by:
[facility] ([place])

AST (SGOT) (test 15 IU/L 0-40 code = 1920-8) ALT (SGPT) (test 18 IU/L 0-44 code = 1742-6) [facility] Description: Comp. Metabolic Panel (14)2020-08-16 01:19:00 Test Item Value Reference Range Interpretation Comments Glucose (test code 424 mg/dL 65-99 H = 2345-7) BUN (test code = 27 mg/dL 6-24 H 3094-0) Creatinine (test 1.88 mg/dL 0.76-1.27 H code = 2160-0) eGFR If NonAfricn 42 >59 L Am (test code = mL/min/1.73 48862-3) eGFR If Africn Am 48 >59 L [facility] currently (test code = mL/min/1.73 [place] [address]-6) compliance with the current recommendations of the National Kid[employer] Foundation. [place] will update re porting as new guidelin es are published from the NKF-ASN Task force.
<br/ >Perfor med by:
[facility] [place] [facility]aur (HD)

BUN/Creatinine 14 9-20 Ratio (test code = 3097-3) Sodium (test code = 138 mmol/L 378-517 0008-2) Potassium (test 4.2 mmol/L 3.5-5.2 code = 2823-3) Chloride (test code 98 mmol/L 96-106 = 2075-0) Carbon Dioxide, 28 mmol/L 20-29 Total (test code = 2027-) Calcium (test code 8.4 mg/dL 8.7-10.2 L = 44107-6) Protein, Total 6.1 g/dL 6.0-8.5 (test code = 2885-2) Albumin (test code 3.0 g/dL 4.0-5.0 L = 1751-7) Globulin, Total 3.1 g/dL 1.5-4.5 (test code = 67696-7) A/G Ratio (test 1.0 1.2-2.2 L code = 1759-0) Bilirubin, Total 0.6 mg/dL 0.0-1.2 (test code = 1975-2) Alkaline 130 IU/L 48-121 H Phosphatase (test Pl ease note code = 6768-6) reference int erval change
<b r/>Perf ormed by:
[facility] ([place])

AST (SGOT) (test 15 IU/L 0-40 code = 1920-8) ALT (SGPT) (test 18 IU/L 0-44 code = 1742-6) [facility] Description: Comp. Metabolic Panel (14)2020-08-16 01:19:00 Test Item Value Reference Range Interpretation Comments Glucose (test code 424 mg/dL 65-99 H = 2345-7) BUN (test code = 27 mg/dL 6-24 H 3094-0) Creatinine (test 1.88 mg/dL 0.76-1.27 H code = 2160-0) eGFR If NonAfricn 42 >59 L Am (test code = mL/min/1.73 67259-0) eGFR If Africn Am 48 >59 L [facility] currently (test code = mL/min/1.73 [place] [address]-7) compliance with the current recommendations of the [employer] Kid[employer] Foundation. [place] will update re porting as new guidelin es are published from the NKF-ASN Task force.
<br/ >Perfor med by:
[facility] [place] ([place])

BUN/Creatinine 14 9-20 Ratio (test code = 3097-3) Sodium (test code = 138 mmol/L 544-694 7874-2) Potassium (test 4.2 mmol/L 3.5-5.2 code = 2823-3) Chloride (test code 98 mmol/L 96-106 = 5-0) Carbon Dioxide, 28 mmol/L 20-29 Total (test code = 2027-) Calcium (test code 8.4 mg/dL 8.7-10.2 L = 32683-1) Protein, Total 6.1 g/dL 6.0-8.5 (test code = 2885-2) Albumin (test code 3.0 g/dL 4.0-5.0 L = 1751-7) Globulin, Total 3.1 g/dL 1.5-4.5 (test code = 16821-3) A/G Ratio (test 1.0 1.2-2.2 L code = 1759-0) Bilirubin, Total 0.6 mg/dL 0.0-1.2 (test code = 1975-2) Alkaline 130 IU/L 48-121 H Phosphatase (test Pl ease note code = 6768-6) reference int erval change
<b r/>Perf ormed by:
[facility] ([place])

AST (SGOT) (test 15 IU/L 0-40 code = 1920-8) ALT (SGPT) (test 18 IU/L 0-44 code = 1742-6) [facility]: Comp. Metabolic Panel (14)2020-08-16 01:19:00 Test Item Value Reference Range Interpretation Comments Glucose (test code 424 mg/dL 65-99 H = 2345-7) BUN (test code = 27 mg/dL 6-24 H 3094-0) Creatinine (test 1.88 mg/dL 0.76-1.27 H code = 2160-0) eGFR If NonAfricn 42 >59 L Am (test code = mL/min/1.73 08347-1) eGFR If Africn Am 48 >59 L [facility] currently (test code = mL/min/1[place]73 [place] [address]-6) compliance with the current recommendations of the [employer]. [facility] [place] will update re porting as new guidelin es are published from the NKF-ASN Task force.
<br/ >Perfor med by:
[facility] (HD)

BUN/Creatinine 14 9-20 Ratio (test code = 3097-3) Sodium (test code = 138 mmol/L 590-028 9975-2) Potassium (test 4.2 mmol/L 3.5-5.2 code = 2823-3) Chloride (test code 98 mmol/L 96-106 = 2075-0) Carbon Dioxide, 28 mmol/L 20-29 Total (test code = 2028-9) Calcium (test code 8.4 mg/dL 8.7-10.2 L = 75023-1) Protein, Total 6.1 g/dL 6.0-8.5 (test code = 2885-2) Albumin (test code 3.0 g/dL 4.0-5.0 L = 1751-7) Globulin, Total 3.1 g/dL 1.5-4.5 (test code = 47730-5) A/G Ratio (test 1.0 1.2-2.2 L code = 1759-0) Bilirubin, Total 0.6 mg/dL 0.0-1.2 (test code = 1975-2) Alkaline 130 IU/L 48-121 H Phosphatase (test Pl ease note code = 6768-6) reference int erval change
<b r/>Perf ormed by:
[facility] ([place])

AST (SGOT) (test 15 IU/L 0-40 code = 1920-8) ALT (SGPT) (test 18 IU/L 0-44 code = 1742-6) [facility] Description: Comp. Metabolic Panel (14)2020-08-16 01:19:00 Test Item Value Reference Range Interpretation Comments Glucose (test code 424 mg/dL 65-99 H = 2345-7) BUN (test code = 27 mg/dL 6-24 H 3094-0) Creatinine (test 1.88 mg/dL 0.76-1.27 H code = 2160-0) eGFR If NonAfricn 42 >59 L Am (test code = mL/min/1.73 61097-6) eGFR If Africn Am 48 >59 L [facility] currently (test code = mL/min/1.73 [place] [address]04-9) compliance with the current recommendations of the [employer]. [place] will update re porting as new guidelin es are published from the NKF-ASN Task force.
<br/ >Perfor med by:
[facility] ([place])

BUN/Creatinine 14 9-20 Ratio (test code = 3097-3) Sodium (test code = 138 mmol/L 362-999 6886-2) Potassium (test 4.2 mmol/L 3.5-5.2 code = 2823-3) Chloride (test code 98 mmol/L 96-106 = 2075-0) Carbon Dioxide, 28 mmol/L 20-29 Total (test code = 2027-9) Calcium (test code 8.4 mg/dL 8.7-10.2 L = 01529-0) Protein, Total 6.1 g/dL 6.0-8.5 (test code = 2885-2) Albumin (test code 3.0 g/dL 4.0-5.0 L = 1751-7) Globulin, Total 3.1 g/dL 1.5-4.5 (test code = 89302-3) A/G Ratio (test 1.0 1.2-2.2 L code = 1759-0) Bilirubin, Total 0.6 mg/dL 0.0-1.2 (test code = 1975-2) Alkaline 130 IU/L 48-121 H Phosphatase (test Pl ease note code = 6768-6) reference int erval change
<b r/>Perf ormed by:
[facility] ([place])

AST (SGOT) (test 15 IU/L 0-40 code = 1920-8) ALT (SGPT) (test 18 IU/L 0-44 code = 1742-6) [facility] Description: Comp. Metabolic Panel (14)2020-08-16 01:19:00 Test Item Value Reference Range Interpretation Comments Glucose (test code 424 mg/dL 65-99 H = 2345-7) BUN (test code = 27 mg/dL 6-24 H 3094-0) Creatinine (test 1.88 mg/dL 0.76-1.27 H code = 2160-0) eGFR If NonAfricn 42 >59 L Am (test code = mL/min/1.73 65518-7) eGFR If Africn Am 48 >59 L [facility] currently (test code = mL/min/1.73 [place] 30757-4) compliance with the current recommendations of the [employer]. [facility] [place] will update re porting as new guidelin es are published from the NKF-ASN Task force.
<br/ >Perfor med by:
[facility] ([place])

BUN/Creatinine 14 9-20 Ratio (test code = 3097-3) Sodium (test code = 138 mmol/L 673-145 5721-2) Potassium (test 4.2 mmol/L 3.5-5.2 code = 2823-3) Chloride (test code 98 mmol/L 96-106 = 2075-0) Carbon Dioxide, 28 mmol/L 20-29 Total (test code = 2027-) Calcium (test code 8.4 mg/dL 8.7-10.2 L = 53793-4) Protein, Total 6.1 g/dL 6.0-8.5 (test code = 2885-2) Albumin (test code 3.0 g/dL 4.0-5.0 L = 1751-7) Globulin, Total 3.1 g/dL 1.5-4.5 (test code = 34520-6) A/G Ratio (test 1.0 1.2-2.2 L code = 1759-0) Bilirubin, Total 0.6 mg/dL 0.0-1.2 (test code = 1974-2) Alkaline 130 IU/L 48-121 H Phosphatase (test Pl ease note code = 6768-6) reference int erval change
<b r/>Perf ormed by:
[facility] ([place])

AST (SGOT) (test 15 IU/L 0-40 code = 1920-8) ALT (SGPT) (test 18 IU/L 0-44 code = 1742-6) [facility] Description: Comp. Metabolic Panel (14)2020-08-16 01:19:00 Test Item Value Reference Range Interpretation Comments Glucose (test code 424 mg/dL 65-99 H = 2345-7) BUN (test code = 27 mg/dL 6-24 H 3094-0) Creatinine (test 1.88 mg/dL 0.76-1.27 H code = 2160-0) eGFR If NonAfricn 42 >59 L Am (test code = mL/min/1.73 46503-3) eGFR If Africn Am 48 >59 L [facility] currently (test code = mL/min/1.73 [place] 13656-1) compliance with the current recommendations of the [employer] Kid[employer]. [facility] [place] will update re porting as new guidelin es are published from the NKF-ASN Task force.
<br/ >Perfor med by:
[facility] ([place])

BUN/Creatinine 14 9-20 Ratio (test code = 3097-3) Sodium (test code = 138 mmol/L 149-052 6450-2) Potassium (test 4.2 mmol/L 3.5-5.2 code = 2823-3) Chloride (test code 98 mmol/L 96-106 = 2075-0) Carbon Dioxide, 28 mmol/L 20-29 Total (test code = 2027-9) Calcium (test code 8.4 mg/dL 8.7-10.2 L = 75584-0) Protein, Total 6.1 g/dL 6.0-8.5 (test code = 2885-2) Albumin (test code 3.0 g/dL 4.0-5.0 L = 1751-7) Globulin, Total 3.1 g/dL 1.5-4.5 (test code = 70390-2) A/G Ratio (test 1.0 1.2-2.2 L code [...] >59 L Am (test code = mL/min/1.73 74153-7) eGFR If Africn Am 48 >59 L [facility] currently (test code = mL/min/1.73 [place] [address]-3) compliance with the current recommendations of the [employer] Kid[employer]. [place] will update re porting as new guidelin es are published from the NKF-ASN Task force.
<br/ >Perfor med by:
[facility] ([place])

BUN/Creatinine 14 9-20 Ratio (test code = 3097-3) Sodium (test code = 138 mmol/L 938-086 6852-2) Potassium (test 4.2 mmol/L 3.5-5.2 code = 2823-3) Chloride (test code 98 mmol/L 96-106 = 2075-0) Carbon Dioxide, 28 mmol/L 20-29 Total (test code = 8-9) Calcium (test code 8.4 mg/dL 8.7-10.2 L = 96925-0) Protein, Total 6.1 g/dL 6.0-8.5 (test code = 2885-2) Albumin (test code 3.0 g/dL 4.0-5.0 L = 1751-7) Globulin, Total 3.1 g/dL 1.5-4.5 (test code = 36950-2) A/G Ratio (test 1.0 1.2-2.2 L code = 1759-0) Bilirubin, Total 0.6 mg/dL 0.0-1.2 (test code = 1975-2) Alkaline 130 IU/L 48-121 H Phosphatase (test Pl ease note code = 6768-6) reference int erval change
<b r/>Perf ormed by:
[facility] ([place])

AST (SGOT) (test 15 IU/L 0-40 code = 1920-8) ALT (SGPT) (test 18 IU/L 0-44 code = 1742-6) [facility] Description: Comp. Metabolic Panel (14)2020-08-16 01:19:00 Test Item Value Reference Range Interpretation Comments Glucose (test code 424 mg/dL 65-99 H = 2345-7) BUN (test code = 27 mg/dL 6-24 H 3094-0) Creatinine (test 1.88 mg/dL 0.76-1.27 H code = 2160-0) eGFR If NonAfricn 42 >59 L Am (test code = mL/min/1.73 47881-0) eGFR If Africn Am 48 >59 L [facility] currently (test code = mL/min/1.73 [place] 43007-1) compliance with the current recommendations of the [employer] Kid[employer]. [facility] [place] will update re porting as new guidelin es are published from the NKF-ASN Task force.
<br/ >Perfor med by:
[facility] [place] ([place])

BUN/Creatinine 14 9-20 Ratio (test code = 3097-3) Sodium (test code = 138 mmol/L 615-290 7373-2) Potassium (test 4.2 mmol/L 3.5-5.2 code = 2823-3) Chloride (test code 98 mmol/L 96-106 = 2075-0) Carbon Dioxide, 28 mmol/L 20-29 Total (test code = 2027-9) Calcium (test code 8.4 mg/dL 8.7-10.2 L = 71600-5) Protein, Total 6.1 g/dL 6.0-8.5 (test code = 2885-2) Albumin (test code 3.0 g/dL 4.0-5.0 L = 1751-7) Globulin, Total 3.1 g/dL 1.5-4.5 (test code = 85595-4) A/G Ratio (test 1.0 1.2-2.2 L code = 1759-0) Bilirubin, Total 0.6 mg/dL 0.0-1.2 (test code = 1975-2) Alkaline 130 IU/L 48-121 H Phosphatase (test Pl ease note code = 6768-6) reference int erval change
<b r/>Perf ormed by:
[facility] ([place])

AST (SGOT) (test 15 IU/L 0-40 code = 1920-8) ALT (SGPT) (test 18 IU/L 0-44 code = 1742-6) [facility] Description: Comp. Metabolic Panel (14)2020-08-16 01:19:00 Test Item Value Reference Range Interpretation Comments Glucose (test code 424 mg/dL 65-99 H = 2345-7) BUN (test code = 27 mg/dL 6-24 H 3094-0) Creatinine (test 1.88 mg/dL 0.76-1.27 H code = 2160-0) eGFR If NonAfricn 42 >59 L Am (test code = mL/min/1.73 79217-5) eGFR If Africn Am 48 >59 L [facility] currently (test code = mL/min/1.73 [place] [address]-4) compliance with the current recommendations of the [employer] Kid[employer] Foundation. [facility] [place] will update re porting as new guidelin es are published from the NKF-ASN Task force.
<br/ >Perfor med by:
[facility] [place] [facility] ([place])

BUN/Creatinine 14 9-20 Ratio (test code = 3097-3) Sodium (test code = 138 mmol/L 541-855 4833-2) Potassium (test 4.2 mmol/L 3.5-5.2 code = 2823-3) Chloride (test code 98 mmol/L 96-106 = 5-0) Carbon Dioxide, 28 mmol/L 20-29 Total (test code = 2027-) Calcium (test code 8.4 mg/dL 8.7-10.2 L = 36790-8) Protein, Total 6.1 g/dL 6.0-8.5 (test code = 2885-2) Albumin (test code 3.0 g/dL 4.0-5.0 L = 1751-7) Globulin, Total 3.1 g/dL 1.5-4.5 (test code = 25901-4) A/G Ratio (test 1.0 1.2-2.2 L code = 1759-0) Bilirubin, Total 0.6 mg/dL 0.0-1.2 (test code = 1975-2) Alkaline 130 IU/L 48-121 H Phosphatase (test Pl ease note code = 6768-6) reference int erval change
<b r/>Perf ormed by:
[facility] ([place])

AST (SGOT) (test 15 IU/L 0-40 code = 1920-8) ALT (SGPT) (test 18 IU/L 0-44 code = 1742-6) [facility] Description: Comp. Metabolic Panel (14)2020-08-16 01:19:00 Test Item Value Reference Range Interpretation Comments Glucose (test code 424 mg/dL 65-99 H = 2345-7) BUN (test code = 27 mg/dL 6-24 H 3094-0) Creatinine (test 1.88 mg/dL 0.76-1.27 H code = 2160-0) eGFR If NonAfricn 42 >59 L Am (test code = mL/min/1.73 79452-0) eGFR If Africn Am 48 >59 L [facility] currently (test code = mL/min/1.73 [place] 9[address]-5) compliance with the current recommendations of the National Kid[employer] Foundation. [facility] [place] will update re porting as new guidelin es are published from the NKF-ASN Task force.
<br/ >Perfor med by:
[facility] [place] ([place])

BUN/Creatinine 14 9-20 Ratio (test code = 3097-3) Sodium (test code = 138 mmol/L 585-362 4673-2) Potassium (test 4.2 mmol/L 3.5-5.2 code = 2823-3) Chloride (test code 98 mmol/L 96-106 = 2075-0) Carbon Dioxide, 28 mmol/L 20-29 Total (test code = 2027-) Calcium (test code 8.4 mg/dL 8.7-10.2 L = 26692-4) Protein, Total 6.1 g/dL 6.0-8.5 (test code = 2885-2) Albumin (test code 3.0 g/dL 4.0-5.0 L = 1751-7) Globulin, Total 3.1 g/dL 1.5-4.5 (test code = 31722-4) A/G Ratio (test 1.0 1.2-2.2 L code = 1759-0) Bilirubin, Total 0.6 mg/dL 0.0-1.2 (test code = 1975-2) Alkaline 130 IU/L 48-121 H Phosphatase (test Pl ease note code = 6768-6) reference int erval change
<b r/>Perf ormed by:
[facility] ([place])

AST (SGOT) (test 15 IU/L 0-40 code = 1920-8) ALT (SGPT) (test 18 IU/L 0-44 code = 1742-6) [facility] Description: Comp. Metabolic Panel (2020-08-16 01:19:00 Test Item Value Reference Range Interpretation Comments Glucose (test code 424 mg/dL 65-99 H = 2345-7) BUN (test code = 27 mg/dL 6-24 H 3094-0) Creatinine (test 1.88 mg/dL 0.76-1.27 H code = 2160-0) eGFR If NonAfricn 42 >59 L Am (test code = mL/min/1.73 00508-0) eGFR If Africn Am 48 >59 L [facility] currently (test code = mL/min/1.73 [place] 08383-2) compliance with the current recommendations of the [employer] Kid[employer]. [facility] [place] will update re porting as new guidelin es are published from the NKF-ASN Task force.
<br/ >Perfor med by:
[facility] ([place])

BUN/Creatinine 14 9-20 Ratio (test code = 3097-3) Sodium (test code = 138 mmol/L 702-878 8688-2) Potassium (test 4.2 mmol/L 3.5-5.2 code = 2823-3) Chloride (test code 98 mmol/L 96-106 = 2075-0) Carbon Dioxide, 28 mmol/L 20-29 Total (test code = 2027-9) Calcium (test code 8.4 mg/dL 8.7-10.2 L = 26572-4) Protein, Total 6.1 g/dL 6.0-8.5 (test code = 2885-2) Albumin (test code 3.0 g/dL 4.0-5.0 L = 1751-7) Globulin, Total 3.1 g/dL 1.5-4.5 (test code = 15863-3) A/G Ratio (test 1.0 1.2-2.2 L code = 1759-0) Bilirubin, Total 0.6 mg/dL 0.0-1.2 (test code = 1975-2) Alkaline 130 IU/L 48-121 H Phosphatase (test Pl ease note code = 6768-6) reference int erval change
<b r/>Perf ormed by:
[facility] ([place])

AST (SGOT) (test 15 IU/L 0-40 code = 1920-8) ALT (SGPT) (test 18 IU/L 0-44 code = 1742-6) [facility] Description: Comp. Metabolic Panel (2020-08-16 01:19:00 Test Item Value Reference Range Interpretation Comments Glucose (test code 424 mg/dL 65-99 H = 2345-7) BUN (test code = 27 mg/dL 6-24 H 3094-0) Creatinine (test 1.88 mg/dL 0.76-1.27 H code = 2160-0) eGFR If NonAfricn 42 >59 L Am (test code = mL/min/1.73 71478-8) eGFR If Africn Am 48 >59 L [facility] currently (test code = mL/min/1.73 [place] 73233-0) compliance with the current recommendations of the National Kid[employer]. [facility] [place] will update re porting as new guidelin es are published from the NKF-ASN Task force.
<br/ >Perfor med by:
[facility] ([place])

BUN/Creatinine 14 9-20 Ratio (test code = 3097-3) Sodium (test code = 138 mmol/L 900-082 4641-2) Potassium (test 4.2 mmol/L 3.5-5.2 code = 2823-3) Chloride (test code 98 mmol/L 96-106 = 2075-0) Carbon Dioxide, 28 mmol/L 20-29 Total (test code = 8-9) Calcium (test code 8.4 mg/dL 8.7-10.2 L = 45691-1) Protein, Total 6.1 g/dL 6.0-8.5 (test code = 2885-2) Albumin (test code 3.0 g/dL 4.0-5.0 L = 1751-7) Globulin, Total 3.1 g/dL 1.5-4.5 (test code = 15353-4) A/G Ratio (test 1.0 1.2-2.2 L code = 1759-0) Bilirubin, Total 0.6 mg/dL 0.0-1.2 (test code = 1975-2) Alkaline 130 IU/L 48-121 H Phosphatase (test Pl ease note code = 6768-6) reference int erval change
<b r/>Perf ormed by:
[facility] ([place])

AST (SGOT) (test 15 IU/L 0-40 code = 1920-8) ALT (SGPT) (test 18 IU/L 0-44 code = 1742-6) [facility] Description: Comp. Metabolic Panel (14)2020-08-16 01:19:00 Test Item Value Reference Range Interpretation Comments Glucose (test code 424 mg/dL 65-99 H = 2345-7) BUN (test code = 27 mg/dL 6-24 H 3094-0) Creatinine (test 1.88 mg/dL 0.76-1.27 H code = 2160-0) eGFR If NonAfricn 42 >59 L Am (test code = mL/min/1.73 30293-6) eGFR If Africn Am 48 >59 L [facility] currently (test code = mL/min/1.73 [place] 36462-8) compliance with the current recommendations of the [employer] Kid[employer]. [facility] [place] will update re porting as new guidelin es are published from the NKF-ASN Task force.
<br/ >Perfor med by:
[facility] ([place])

BUN/Creatinine 14 9-20 Ratio (test code = 3097-3) Sodium (test code = 138 mmol/L 730-884 3410-2) Potassium (test 4.2 mmol/L 3.5-5.2 code = 2823-3) Chloride (test code 98 mmol/L 96-106 = 2075-0) Carbon Dioxide, 28 mmol/L 20-29 Total (test code = 2027-9) Calcium (test code 8.4 mg/dL 8.7-10.2 L = 22908-6) Protein, Total 6.1 g/dL 6.0-8.5 (test code = 2885-2) Albumin (test code 3.0 g/dL 4.0-5.0 L = 1751-7) Globulin, Total 3.1 g/dL 1.5-4.5 (test code = 84609-7) A/G Ratio (test 1.0 1.2-2.2 L code [...] 1742-6) [facility] Description: Comp. Metabolic Panel (2020-08-16 01:19:00 Test Item Value Reference Range Interpretation Comments Glucose (test code 424 mg/dL 65-99 H = 2345-7) BUN (test code = 27 mg/dL 6-24 H 3094-0) Creatinine (test 1.88 mg/dL 0.76-1.27 H code = 2160-0) eGFR If NonAfricn 42 >59 L Am (test code = mL/min/1.73 90238-1) eGFR If Africn Am 48 >59 L [facility] currently (test code = mL/min/1.73 [place] 14301-0) compliance with the current recommendations of the [employer] Kid[employer]. [facility] [place] will update re porting as new guidelin es are published from the NKF-ASN Task force.
<br/ >Perfor med by:
[facility] ([place])

BUN/Creatinine 14 9-20 Ratio (test code = 3097-3) Sodium (test code = 138 mmol/L 958-931 0697-2) Potassium (test 4.2 mmol/L 3.5-5.2 code = 2823-3) Chloride (test code 98 mmol/L 96-106 = 2075-0) Carbon Dioxide, 28 mmol/L 20-29 Total (test code = 2027-) Calcium (test code 8.4 mg/dL 8.7-10.2 L = 85789-5) Protein, Total 6.1 g/dL 6.0-8.5 (test code = 2885-2) Albumin (test code 3.0 g/dL 4.0-5.0 L = 1751-7) Globulin, Total 3.1 g/dL 1.5-4.5 (test code = 75397-8) A/G Ratio (test 1.0 1.2-2.2 L code [...] 1742-6) [facility] Description: Comp. Metabolic Panel (2020-08-16 01:19:00 Test Item Value Reference Range Interpretation Comments Glucose (test code 424 mg/dL 65-99 H = 2345-7) BUN (test code = 27 mg/dL 6-24 H 3094-0) Creatinine (test 1.88 mg/dL 0.76-1.27 H code = 2160-0) eGFR If NonAfricn 42 >59 L Am (test code = mL/min/1.73 05616-0) eGFR If Africn Am 48 >59 L [facility] currently (test code = mL/min/1.73 [place] 29042-7) compliance with the current recommendations of the [employer] Kid[employer]. [facility] [place] will update re porting as new guidelin es are published from the NKF-ASN Task force.
<br/ >Perfor med by:
[facility] ([place])

BUN/Creatinine 14 9-20 Ratio (test code = 3097-3) Sodium (test code = 138 mmol/L 508-878 2522-2) Potassium (test 4.2 mmol/L 3.5-5.2 code = 2823-3) Chloride (test code 98 mmol/L 96-106 = 2075-0) Carbon Dioxide, 28 mmol/L 20-29 Total (test code = 2027-9) Calcium (test code 8.4 mg/dL 8.7-10.2 L = 32813-7) Protein, Total 6.1 g/dL 6.0-8.5 (test code = 2885-2) Albumin (test code 3.0 g/dL 4.0-5.0 L = 1751-7) Globulin, Total 3.1 g/dL 1.5-4.5 (test code = 64417-9) A/G Ratio (test 1.0 1.2-2.2 L code = 1759-0) Bilirubin, Total 0.6 mg/dL 0.0-1.2 (test code = 1975-2) Alkaline 130 IU/L 48-121 H Phosphatase (test Pl ease note code = 6768-6) reference int erval change
<b r/>Perf ormed by:
[facility] ([place])

AST (SGOT) (test 15 IU/L 0-40 code = 1920-8) ALT (SGPT) (test 18 IU/L 0-44 code = 1742-6) [facility] Description: Comp. Metabolic Panel (14)2020-08-16 01:19:00 Test Item Value Reference Range Interpretation Comments Glucose (test code 424 mg/dL 65-99 H = 2345-7) BUN (test code = 27 mg/dL 6-24 H 3094-0) Creatinine (test 1.88 mg/dL 0.76-1.27 H code = 2160-0) eGFR If NonAfricn 42 >59 L Am (test code = mL/min/1.73 73456-4) eGFR If Africn Am 48 >59 L [facility] currently (test code = mL/min/1.73 [place] 16199-7) compliance with the current recommendations of the [employer]. [facility] [place] will update re porting as new guidelin es are published from the NKF-ASN Task force.
<br/ >Perfor med by:
[facility] ([place])

BUN/Creatinine 14 9-20 Ratio (test code = 3097-3) Sodium (test code = 138 mmol/L 942-124 9183-2) Potassium (test 4.2 mmol/L 3.5-5.2 code = 2823-3) Chloride (test code 98 mmol/L 96-106 = 2075-0) Carbon Dioxide, 28 mmol/L 20-29 Total (test code = 2027-) Calcium (test code 8.4 mg/dL 8.7-10.2 L = 10630-2) Protein, Total 6.1 g/dL 6.0-8.5 (test code = 2885-2) Albumin (test code 3.0 g/dL 4.0-5.0 L = 1751-7) Globulin, Total 3.1 g/dL 1.5-4.5 (test code = 45134-1) A/G Ratio (test 1.0 1.2-2.2 L code = 1759-0) Bilirubin, Total 0.6 mg/dL 0.0-1.2 (test code = 1975-2) Alkaline 130 IU/L 48-121 H Phosphatase (test Pl ease note code = 6768-6) reference int erval change
<b r/>Perf ormed by:
[facility] ([place])

AST (SGOT) (test 15 IU/L 0-40 code = 1920-8) ALT (SGPT) (test 18 IU/L 0-44 code = 1742-6) [facility] Description: Hemoglobin A1c/Hemoglobin.total in Blood 2020-08-16 00:35:00 Test Item Value Reference Range Interpretation Comments Hemoglobin A1c (test code 11.6 % 4.8-5.6 H = 4548-4) . Prediabetes: 5. 7 - 6.4 Diabete s: >6.4 Glycemi c control for niall lts with diabetes: <7.0

P erforme d by:
[facility] [place] ([place])

[facility] Description: Hemoglobin A1c/Hemoglobin.total in Blood 2020-08-16 00:35:00 Test Item Value Reference Range Interpretation Comments Hemoglobin A1c (test code 11.6 % 4.8-5.6 H = 4548-4) . Prediabetes: 5. 7 - 6.4 Diabete s: >6.4 Glycemi c control for niall lts with diabetes: <7.0

P erforme d by:
[facility] [place] ([place])

[facility] Description: Hemoglobin A1c/Hemoglobin.total in Blood 2020-08-16 00:35:00 Test Item Value Reference Range Interpretation Comments Hemoglobin A1c (test code 11.6 % 4.8-5.6 H = 4548-4) . Prediabetes: 5. 7 - 6.4 Diabete s: >6.4 Glycemi c control for niall lts with diabetes: <7.0

P erforme d by:
[facility] [place] ([place])

[facility] Description: Hemoglobin A1c/Hemoglobin.total in Blood 2020-08-16 00:35:00 Test Item Value Reference Range Interpretation Comments Hemoglobin A1c (test code 11.6 % 4.8-5.6 H = 4548-4) . Prediabetes: 5. 7 - 6.4 Diabete s: >6.4 Glycemi c control for niall lts with diabetes: <7.0

P erforme d by:
[facility] [place] ([place])

[facility] Description: Hemoglobin A1c/Hemoglobin.total in Blood 2020-08-16 00:35:00 Test Item Value Reference Range Interpretation Comments Hemoglobin A1c (test code 11.6 % 4.8-5.6 H = 4548-4) . Prediabetes: 5. 7 - 6.4 Diabete s: >6.4 Glycemi c control for niall lts with diabetes: <7.0

P erforme d by:
[facility] [place] ([place])

[facility] Description: Hemoglobin A1c/Hemoglobin.total in Blood 2020-08-16 00:35:00 Test Item Value Reference Range Interpretation Comments Hemoglobin A1c (test code 11.6 % 4.8-5.6 H = 4548-4) . Prediabetes: 5. 7 - 6.4 Diabete s: >6.4 Glycemi c control for niall lts with diabetes: <7.0

P erforme d by:
[facility] [place] ([place])

[facility] Description: Hemoglobin A1c/Hemoglobin.total in Blood 2020-08-16 00:35:00 Test Item Value Reference Range Interpretation Comments Hemoglobin A1c (test code 11.6 % 4.8-5.6 H = 4548-4) . Prediabetes: 5. 7 - 6.4 Diabete s: >6.4 Glycemi c control for niall lts with diabetes: <7.0

P erforme d by:
[facility] [place] ([place])

[facility] Description: Hemoglobin A1c/Hemoglobin.total in Blood 2020-08-16 00:35:00 Test Item Value Reference Range Interpretation Comments Hemoglobin A1c (test code 11.6 % 4.8-5.6 H = 4548-4) . Prediabetes: 5. 7 - 6.4 Diabete s: >6.4 Glycemi c control for niall lts with diabetes: <7.0

P erforme d by:
[facility] [place] ([place])

[facility] Description: Hemoglobin A1c/Hemoglobin.total in Blood 2020-08-16 00:35:00 Test Item Value Reference Range Interpretation Comments Hemoglobin A1c (test code 11.6 % 4.8-5.6 H = 4548-4) . Prediabetes: 5. 7 - 6.4 Diabete s: >6.4 Glycemi c control for niall lts with diabetes: <7.0

P erforme d by:
[facility] [place] ([place])

[facility] Description: Hemoglobin A1c/Hemoglobin.total in Blood 2020-08-16 00:35:00 Test Item Value Reference Range Interpretation Comments Hemoglobin A1c (test code 11.6 % 4.8-5.6 H = 4548-4) . Prediabetes: 5. 7 - 6.4 Diabete s: >6.4 Glycemi c control for niall lts with diabetes: <7.0

P erforme d by:
[facility] ([place])

[facility] Description: Hemoglobin A1c/Hemoglobin.total in Blood 2020-08-16 00:35:00 Test Item Value Reference Range Interpretation Comments Hemoglobin A1c (test code 11.6 % 4.8-5.6 H = 4548-4) . Prediabetes: 5. 7 - 6.4 Diabete s: >6.4 Glycemi c control for niall lts with diabetes: <7.0

P erforme d by:
[facility] [place] ([place])

[facility] Description: Hemoglobin A1c/Hemoglobin.total in Blood 2020-08-16 00:35:00 Test Item Value Reference Range Interpretation Comments Hemoglobin A1c (test code 11.6 % 4.8-5.6 H = 4548-4) . Prediabetes: 5. 7 - 6.4 Diabete s: >6.4 Glycemi c control for niall lts with diabetes: <7.0

P erforme d by:
[facility] [place] ([place])

[facility] Description: Hemoglobin A1c/Hemoglobin.total in Blood 2020-08-16 00:35:00 Test Item Value Reference Range Interpretation Comments Hemoglobin A1c (test code 11.6 % 4.8-5.6 H = 4548-4) . Prediabetes: 5. 7 - 6.4 Diabete s: >6.4 Glycemi c control for niall lts with diabetes: <7.0

P erforme d by:
[facility] [place] ([place])

[facility] Description: Hemoglobin A1c/Hemoglobin.total in Blood 2020-08-16 00:35:00 Test Item Value Reference Range Interpretation Comments Hemoglobin A1c (test code 11.6 % 4.8-5.6 H = 4548-4) . Prediabetes: 5. 7 - 6.4 Diabete s: >6.4 Glycemi c control for niall lts with diabetes: <7.0

P erforme d by:
[facility] [place] ([place])

[facility] Description: Hemoglobin A1c/Hemoglobin.total in Blood 2020-08-16 00:35:00 Test Item Value Reference Range Interpretation Comments Hemoglobin A1c (test code 11.6 % 4.8-5.6 H = 4548-4) . Prediabetes: 5. 7 - 6.4 Diabete s: >6.4 Glycemi c control for niall lts with diabetes: <7.0

P erforme d by:
[facility] [place] ([place])

[facility] Description: Hemoglobin A1c/Hemoglobin.total in Blood 2020-08-16 00:35:00 Test Item Value Reference Range Interpretation Comments Hemoglobin A1c (test code 11.6 % 4.8-5.6 H = 4548-4) . Prediabetes: 5. 7 - 6.4 Diabete s: >6.4 Glycemi c control for niall lts with diabetes: <7.0

P erforme d by:
[facility] ([place])

[facility] Description: Hemoglobin A1c/Hemoglobin.total in Blood 2020-08-16 00:35:00 Test Item Value Reference Range Interpretation Comments Hemoglobin A1c (test code 11.6 % 4.8-5.6 H = 4548-4) . Prediabetes: 5. 7 - 6.4 Diabete s: >6.4 Glycemi c control for niall lts with diabetes: <7.0

P erforme d by:
[facility] ()

[facility] Description: Hemoglobin A1c/Hemoglobin.total in Blood 2020-08-16 00:35:00 Test Item Value Reference Range Interpretation Comments Hemoglobin A1c (test code 11.6 % 4.8-5.6 H = 4548-4) . Prediabetes: 5. 7 - 6.4 Diabete s: >6.4 Glycemi c control for inall lts with diabetes: <7.0

P erforme d by:
[facility] (HD)

[facility] Description: Hemoglobin A1c/Hemoglobin.total in Blood 2020-08-16 00:35:00 Test Item Value Reference Range Interpretation Comments Hemoglobin A1c (test code 11.6 % 4.8-5.6 H = 4548-4) . Prediabetes: 5. 7 - 6.4 Diabete s: >6.4 Glycemi c control for niall lts with diabetes: <7.0

P erforme d by:
[facility] (HD)

[facility] Description: Hemoglobin A1c/Hemoglobin.total in Blood 2020-08-16 00:35:00 Test Item Value Reference Range Interpretation Comments Hemoglobin A1c (test code 11.6 % 4.8-5.6 H = 4548-4) . Prediabetes: 5. 7 - 6.4 Diabete s: >6.4 Glycemi c control for niall lts with diabetes: <7.0

P erforme d by:
[facility] (HD)

Access HealthType and screen, [id number] 19:24:00 Test Item Value Reference Range Interpretation Comments ABO/RH AUTOMATED (BEAKER) (test A POSITIVE ECHO code = 2260) Ab Scrn (test code = 890-4) [facility] [id number] 19:24:00 Test Item Value Reference Range Interpretation Comments ABO/RH AUTOMATED (BEAKER) (test A POSITIVE ECHO code = 2260) Ab Scrn (test code = 890-4) [facility], [id number] 19:24:00 Test Item Value Reference Range Interpretation Comments ABO/RH AUTOMATED (BEAKER) (test A POSITIVE ECHO code = 2260) Ab Scrn (test code = 890-4) [facility], [id number] 19:24:00 Test Item Value Reference Range Interpretation Comments ABO/RH AUTOMATED (BEAKER) (test A POSITIVE ECHO code = 2260) Ab Scrn (test code = 890-4) [facility]IVE [facility]CHO [facility], [id number] 19:24:00 Test Item Value Reference Range Interpretation Comments ABO/RH AUTOMATED (BEAKER) (test A POSITIVE ECHO code = 2260) Ab Scrn (test code = 890-4) [facility]IVE [facility], [id number] 19:24:00 Test Item Value Reference Range Interpretation Comments ABO/RH AUTOMATED (BEAKER) (test A POSITIVE ECHO code = 2260) Ab Scrn (test code = 890-4) [facility]IVE [facility], [id number] 19:24:00 Test Item Value Reference Range Interpretation Comments ABO/RH AUTOMATED (BEAKER) (test A POSITIVE ECHO code = 2260) Ab Scrn (test code = 890-4) [facility]CHO [facility] [id number] 19:12:00 Test Item Value Reference Range Interpretation Comments Protein, Total (test 6.9 See_Comment [Autom ated code = 2885-2) message] The system which generated this result transmit josé luis reference range : 6.0 - 8.5 gm/dL . The reference range was not u sed to interpret th is result as normal/abnormal . Albumin (test code = 3.3 g/dL 3.5-5 L 84534-1) Alkaline Phosphatase 97 U/L 30-115 (test code = 6768-6) Total Bilirubin (test 0.9 mg/dL 0.1-1.2 code = 1975-2) Sodium (test code = 137 meq/L 684-289 2673-2) Potassium (test code 4.5 meq/L 3.6-5.5 = 2823-3) Chloride (test code = 100 meq/L 98-106 2075-0) CO2 (test code = 26 meq/L 20-29 2028-9) BUN (test code = 51 mg/dL 10-26 H 3094-0) Creatinine (test code 1.87 mg/dL 0.5-1.2 H = 2160-0) Glucose (test code = 267 mg/dL 70-110 H 2345-7) Calcium (test code = 9.1 mg/dL 8.5-10.5 65959-7) AST (test code = 18 U/L 5-40 1920-8) ALT (test code = 23 U/L 5-50 1742-6) EGFR (test code = 39 mL/min/1.73 [place] [address]-0) NOT ACCURATE CREATININE CLEARANCE IN PREDICTING GLOMERULAR FILTRATION RATE . ESTIMATED GFR I S NOT APPLICABLE FOR DIALYSIS PATIEN TS. 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 ID - [id number] r ID - [id number] r ID - [id number] r ID - [id number] r ID - [id number] r ID - [id number] r ID - [id number] r ID - [id number] r ID - [id number] r ID - [id number] r ID - [id number] r ID - [id number] r ID - [id number] r ID - [id number] r ID - [id number] r ID - [id number] r ID - [id number] r ID - [id number] r ID - [id number] Lab Interpretation Abnormal (test code = 80138-8) [facility] [id number] 19:12:00 Test Item Value Reference Range Interpretation Comments Protein, Total (test 6.9 See_Comment [Autom ated code = 2885-2) message] The system which generated this result transmit josé luis reference range : 6.0 - 8.5 gm/dL . The reference range was not u sed to interpret th is result as normal/abnormal . Albumin (test code = 3.3 g/dL 3.5-5 L 64366-5) Alkaline Phosphatase 97 U/L 30-115 (test code = 6768-6) Total Bilirubin (test 0.9 mg/dL 0.1-1.2 code = 1974-2) Sodium (test code = 137 meq/L 525-088 1946-2) Potassium (test code 4.5 meq/L 3.6-5.5 = 2823-3) Chloride (test code = 100 meq/L 98-106 5-0) CO2 (test code = 26 meq/L 20-29 8-9) BUN (test code = 51 mg/dL 10-26 H 3094-0) Creatinine (test code 1.87 mg/dL 0.5-1.2 H = 2160-0) Glucose (test code = 267 mg/dL 70-110 H 2345-7) Calcium (test code = 9.1 mg/dL 8.5-10.5 98795-6) AST (test code = 18 U/L 5-40 1920-8) ALT (test code = 23 U/L 5-50 1742-6) EGFR (test code = 39 mL/min/1.73 [place] [address]-0) NOT ACCURATE CREATININE CLEARANCE IN PREDICTING GLOMERULAR FILTRATION RATE . ESTIMATED GFR I S NOT APPLICABLE FOR DIALYSIS PATIEN TS. 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 ID - [id number] r ID - [id number] r ID - [id number] r ID - [id number] r ID - [id number] r ID - [id number] r ID - [id number] r ID - [id number] r ID - [id number] r ID - [id number] r ID - [id number] r ID - [id number] r ID - [id number] r ID - [id number] r ID - [id number] r ID - [id number] r ID - [id number] r ID - [id number] r ID - [id number] Lab Interpretation Abnormal (test code = 23231-6) [facility] [id number] 19:12:00 Test Item Value Reference Range Interpretation Comments Protein, Total (test 6.9 See_Comment [Autom ated code = 2885-2) message] The system which generated this result transmit josé luis reference range : 6.0 - 8.5 gm/dL . The reference range was not u sed to interpret th is result as normal/abnormal . Albumin (test code = 3.3 g/dL 3.5-5 L 06005-1) Alkaline Phosphatase 97 U/L 30-115 (test code = 6768-6) Total Bilirubin (test 0.9 mg/dL 0.1-1.2 code = 1974-2) Sodium (test code = 137 meq/L 069-258 4668-2) Potassium (test code 4.5 meq/L 3.6-5.5 = 2823-3) Chloride (test code = 100 meq/L 98-106 2074-0) CO2 (test code = 26 meq/L 20-29 2027-) BUN (test code = 51 mg/dL 10-26 H 3094-0) Creatinine (test code 1.87 mg/dL 0.5-1.2 H = 2160-0) Glucose (test code = 267 mg/dL 70-110 H 2345-7) Calcium (test code = 9.1 mg/dL 8.5-10.5 33420-1) AST (test code = 18 U/L 5-40 1920-8) ALT (test code = 23 U/L 5-50 1742-6) EGFR (test code = 39 mL/min/1.73 [place] [address]-7) NOT ACCURATE CREATININE CLEARANCE IN PREDICTING GLOMERULAR FILTRATION RATE . ESTIMATED GFR I S NOT APPLICABLE FOR DIALYSIS PATIEN TS. 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 ID - [id number] r ID - [id number] r ID - [id number] r ID - [id number] r ID - [id number] r ID - [id number] r ID - [id number] r ID - [id number] r ID - [id number] r ID - [id number] r ID - [id number] r ID - [id number] r ID - [id number] r ID - [id number] r ID - [id number] r ID - [id number] r ID - [id number] r ID - [id number] r ID - [id number] Lab Interpretation Abnormal (test code = 67676-4) [facility] [id number] 19:12:00 Test Item Value Reference Range Interpretation Comments Protein, Total (test 6.9 See_Comment [Autom ated code = 2885-2) message] The system which generated this result transmit josé luis reference range : 6.0 - 8.5 gm/dL . The reference range was not u sed to interpret th is result as normal/abnormal . Albumin (test code = 3.3 g/dL 3.5-5 L 94775-5) Alkaline Phosphatase 97 U/L 30-115 (test code = 6768-6) Total Bilirubin (test 0.9 mg/dL 0.1-1.2 code = 1975-2) Sodium (test code = 137 meq/L 174-190 0069-2) Potassium (test code 4.5 meq/L 3.6-5.5 = 2823-3) Chloride (test code = 100 meq/L 98-106 2075-0) CO2 (test code = 26 meq/L 20-29 8-9) BUN (test code = 51 mg/dL 10-26 H 3094-0) Creatinine (test code 1.87 mg/dL 0.5-1.2 H = 2160-0) Glucose (test code = 267 mg/dL 70-110 H 2345-7) Calcium (test code = 9.1 mg/dL 8.5-10.5 54891-2) AST (test code = 18 U/L 5-40 1920-8) ALT (test code = 23 U/L 5-50 1742-6) EGFR (test code = 39 mL/min/1.73 [place] [address]-0) NOT ACCURATE CREATININE CLEARANCE IN PREDICTING GLOMERULAR FILTRATION RATE . ESTIMATED GFR I S NOT APPLICABLE FOR DIALYSIS PATIEN TS. 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 ID - [id number] r ID - [id number] r ID - [id number] r ID - [id number] r ID - [id number] r ID - [id number] r ID - [id number] r ID - [id number] r ID - [id number] r ID - [id number] r ID - [id number] r ID - [id number] r ID - [id number] r ID - [id number] r ID - [id number] r ID - [id number] r ID - [id number] r ID - [id number] r ID - [id number] Lab Interpretation Abnormal (test code = 35396-8) [facility] [id number] 19:12:00 Test Item Value Reference Range Interpretation Comments Protein, Total (test 6.9 See_Comment [Autom ated code = 2885-2) message] The system which generated this result transmit josé luis reference range : 6.0 - 8.5 gm/dL . The reference range was not u sed to interpret th is result as normal/abnormal . Albumin (test code = 3.3 g/dL 3.5-5.0 L 57250-1) Alkaline Phosphatase 97 U/L 30-115 (test code = 6768-6) Total Bilirubin (test 0.9 mg/dL 0.1-1.2 code = 1974-2) Sodium (test code = 137 meq/L 412-237 9785-2) Potassium (test code 4.5 meq/L 3.6-5.5 = 2823-3) Chloride (test code = 100 meq/L 98-106 2074-0) CO2 (test code = 26 meq/L 20-29 2027-9) BUN (test code = 51 mg/dL 10-26 H 3094-0) Creatinine (test code 1.87 mg/dL 0.50-1.20 H = 2160-0) Glucose (test code = 267 mg/dL 70-110 H 2345-7) Calcium (test code = 9.1 mg/dL 8.5-10.5 65326-6) AST (test code = 18 U/L 5-40 192-8) ALT (test code = 23 U/L 5-50 1741-6) EGFR (test code = 39 mL/min/1.73 [place] [address]-9) NOT ACCURATE CREATININE CLEARANCE IN PREDICTING GLOMERULAR FILTRATION RATE . ESTIMATED GFR I S NOT APPLICABLE FOR DIALYSIS PATIEN TS. 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 ID - [id number] r ID - [id number] r ID - [id number] r ID - [id number] r ID - [id number] r ID - [id number] r ID - [id number] r ID - [id number] r ID - [id number] r ID - [id number] r ID - [id number] r ID - [id number] r ID - [id number] r ID - [id number] r ID - [id number] r ID - [id number] r ID - [id number] r ID - [id number] r ID - [id number] Lab Interpretation Abnormal (test code = 88000-3) [facility] [id number] 19:12:00 Test Item Value Reference Range Interpretation Comments Protein, Total (test 6.9 See_Comment [Autom ated code = 2885-2) message] The system which generated this result transmit josé luis reference range : 6.0 - 8.5 gm/dL . The reference range was not u sed to interpret th is result as normal/abnormal . Albumin (test code = 3.3 g/dL 3.5-5.0 L 10201-2) Alkaline Phosphatase 97 U/L 30-115 (test code = 6768-6) Total Bilirubin (test 0.9 mg/dL 0.1-1.2 code = 1975-2) Sodium (test code = 137 meq/L 148-965 7430-2) Potassium (test code 4.5 meq/L 3.6-5.5 = 2823-3) Chloride (test code = 100 meq/L 98-106 2075-0) CO2 (test code = 26 meq/L 20-29 2028-9) BUN (test code = 51 mg/dL 10-26 H 3094-0) Creatinine (test code 1.87 mg/dL 0.50-1.20 H = 2160-0) Glucose (test code = 267 mg/dL 70-110 H 2345-7) Calcium (test code = 9.1 mg/dL 8.5-10.5 05605-5) AST (test code = 18 U/L 5-40 1920-8) ALT (test code = 23 U/L 5-50 1742-6) EGFR (test code = 39 mL/min/1.73 [place] [address]-2) NOT ACCURATE CREATININE CLEARANCE IN PREDICTING GLOMERULAR FILTRATION RATE . ESTIMATED GFR I S NOT APPLICABLE FOR DIALYSIS PATIEN TS. 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 ID - [id number] r ID - [id number] r ID - [id number] r ID - [id number] r ID - [id number] r ID - [id number] r ID - [id number] r ID - [id number] r ID - [id number] r ID - [id number] r ID - [id number] r ID - [id number] r ID - [id number] r ID - [id number] r ID - [id number] r ID - [id number] r ID - [id number] r ID - [id number] r ID - [id number] Lab Interpretation Abnormal (test code = 97003-2) [facility] [id number] 19:12:00 Test Item Value Reference Range Interpretation Comments Protein, Total (test 6.9 See_Comment [Autom ated code = 2885-2) message] The system which generated this result transmit josé luis reference range : 6.0 - 8.5 gm/dL . The reference range was not u sed to interpret th is result as normal/abnormal . Albumin (test code = 3.3 g/dL 3.5-5.0 L 19790-6) Alkaline Phosphatase 97 U/L 30-115 (test code = 6768-6) Total Bilirubin (test 0.9 mg/dL 0.1-1.2 code = 1975-2) Sodium (test code = 137 meq/L 821-307 8004-2) Potassium (test code 4.5 meq/L 3.6-5.5 = 2823-3) Chloride (test code = 100 meq/L 98-106 2075-0) CO2 (test code = 26 meq/L 20-29 2028-9) BUN (test code = 51 mg/dL 10-26 H 3094-0) Creatinine (test code 1.87 mg/dL 0.50-1.20 H = 2160-0) Glucose (test code = 267 mg/dL 70-110 H 2345-7) Calcium (test code = 9.1 mg/dL 8.5-10.5 63542-1) AST (test code = 18 U/L 5-40 1920-8) ALT (test code = 23 U/L 5-50 1742-6) EGFR (test code = 39 mL/min/1.73 [place] [address]-5) NOT ACCURATE CREATININE CLEARANCE IN PREDICTING GLOMERULAR FILTRATION RATE . ESTIMATED GFR I S NOT APPLICABLE FOR DIALYSIS PATIEN TS. 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 ID - [id number] r ID - [id number] r ID - [id number] r ID - [id number] r ID - [id number] r ID - [id number] r ID - [id number] r ID - [id number] r ID - [id number] r ID - [id number] r ID - [id number] r ID - [id number] r ID - [id number] r ID - [id number] r ID - [id number] r ID - [id number] r ID - [id number] r ID - [id number] r ID - [id number] Lab Interpretation Abnormal (test code = 27695-2) [facility] [id number] 19:12:00 Test Item Value Reference Range Interpretation [...] S NOT APPLICABLE FOR DIALYSIS PATIEN TS. Electric [employer]or [employer]ic ID - [id number] ID - [id number] ID - [id number] ID - [id number] ID - [id number] ID - [id number] ID - [id number] ID - [id number] ID - [id number] ID - [id number] ID - [id number] ID - [id number] ID - [id number] ID - [id number] ID - [id number] ID - [id number] ID - [id number] ID - [id number] ID - [id number] acid, [id number] 19:05:00 Test Item Value Reference Range Interpretation Comments Lactate, Venous (test code 1.18 mmol/L 0.5-2 = 2872) 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 ID - [id number] ID - [id number] ID - [id number] ID - [id number] Lab Interpretation (test Normal code = 82421-9) [facility], qgpflc5538-97-48 19:05:00 Test Item Value Reference Range Interpretation Comments Lactate, Venous (test code 1.18 mmol/L 0.5-2 = 2872) 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 ID - [id number] ID - [id number] ID - [id number] ID - [id number] Lab Interpretation (test Normal code = 58543-9) [facility], [id number] 19:05:00 Test Item Value Reference Range Interpretation Comments Lactate, Venous (test code 1.18 mmol/L 0.5-2 = 2872) 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 ID - [id number] ID - [id number] ID - [id number] ID - [id number] Lab Interpretation (test Normal code = 11424-7) [facility], udipeo4777-88-65 19:05:00 Test Item Value Reference Range Interpretation Comments Lactate, Venous (test code 1.18 mmol/L 0.5-2 = 2872) 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 ID - [id number] ID - [id number] ID - [id number] ID - [id number] Lab Interpretation (test Normal code = 36320-9) [facility] [id number] 19:05:00 Test Item Value Reference Range Interpretation Comments Lactate, Venous (test code 1.18 mmol/L 0.50-2.00 = 2872) 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 ID - [id number] ID - [id number] ID - [id number] ID - [id number] Lab Interpretation (test Normal code = 69635-8) [facility] acid, yyoxgq9369-67-81 19:05:00 Test Item Value Reference Range Interpretation Comments Lactate, Venous (test code 1.18 mmol/L 0.50-2.00 = 2872) 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 ID - [id number] ID - [id number] ID - [id number] ID - [id number] Lab Interpretation (test Normal code = 86192-1) [facility] szqswu8183-64-28 19:05:00 Test Item Value Reference Range Interpretation Comments Lactate, Venous (test code 1.18 mmol/L 0.50-2.00 = 2872) 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 ID - [id number] ID - [id number] ID - [id number] ID - [id number] Lab Interpretation (test Normal code = 34093-8) [facility], [id number] 19:05:00 Test Item Value Reference Range Interpretation Comments LACTATE BLOOD VENOUS (2) (BEAKER) 1.18 mmol/L 0.50-<2.00 (test code = 2872) [employer] ID - [id number] ID - [id number] ID - [id number] ID - [id number]/[id number] 19:02:00 Test Item Value Reference Interpretation Comments [...] valves. Lab Interpretation Abnormal (test code = 74417-4) [facility]/[id number] 19:02:00 Test Item Value Reference Interpretation Comments [...] valves. Lab Interpretation Abnormal (test code = 96099-8) [facility]/[id number] 19:02:00 Test Item Value Reference Interpretation Comments [...] valves. Lab Interpretation Abnormal (test code = 51442-6) [facility]/[id number] 19:02:00 Test Item Value Reference Interpretation Comments [...] valves. Lab Interpretation Abnormal (test code = 10380-0) [facility]/[id number] 19:02:00 Test Item Value Reference Interpretation Comments [...] valves. Lab Interpretation Abnormal (test code = 11056-4) [facility]/[id number] 19:02:00 Test Item Value Reference Interpretation Comments [...] valves. Lab Interpretation Abnormal (test code = 75979-8) [facility]/[id number] 19:02:00 Test Item Value Reference Interpretation Comments [...] valves. Lab Interpretation Abnormal (test code = 47531-9) [facility]orePROTHROMBIN TIME/[id number] 19:02:00 Test Item Value Reference Range Interpretation [...] code = 2801) CARDIAC CATH REPORT - [id number] 13:14:50Ordered by an unspecified provider. [facility] - [id number] 13:14:50 Ordered by an unspecified provider.[facility] - [id number] 13:14:50Ordered by an unspecified provider.[facility] - [id number] 13:14:50Ordered by an unspecified provider.[facility]oreK[facility] / lambda light chains, ripfj6422-38-11 10:53:00 Test Item Value Reference Interpretation Comments Range Hammond Lt Chain,Free 129.5 mg/L 3.3-19.4 H (test code = 08191-2) Lambda Lt 99.3 mg/L 5.7-26.3 H Chain,Free (test code = 46434-3) Hammond/Lambda,Free 1.3 0.26-1.65 Free shantell a/lambda (test code [...] ISSA (test code = Performing Lab ISSA) [employer] [facility] [address] [place] [address] Awais Cedeno MD, PhD, TOMY Lab Interpretation Abnormal (test code = 02878-3) [facility] lambda light chains, [id number] 10:53:00 Test Item Value Reference Interpretation Comments Range Hammond Lt Chain,Free 129.5 mg/L 3.3-19.4 H (test code = 55241-4) Lambda Lt 99.3 mg/L 5.7-26.3 H Chain,Free (test code = 92990-1) Hammond/Lambda,Free 1.3 0.26-1.65 Free shantell a/lambda (test code [...] (test code = Performing Lab ISSA) [employer] [facility] [address] [place] [address] Awais Cedeno MD, PhD, TOMY Lab Interpretation Abnormal (test code = 81115-5) [facility] lambda light chains, [id number] 10:53:00 Test Item Value Reference Interpretation Comments Range Hammond Lt Chain,Free 129.5 mg/L 3.3-19.4 H (test code = 17871-5) Lambda Lt 99.3 mg/L 5.7-26.3 H Chain,Free (test code = 93304-9) Hammond/Lambda,Free 1.3 0.26-1.65 Free shantell a/lambda (test code [...] = Performing Lab ISSA) [employer] [facility] [address] [place] [address] Awais Cedeno MD, PhD, TOMY Lab Interpretation Abnormal (test code = 75874-6) [facility] lambda light chains, [id number] 10:53:00 Test Item Value Reference Interpretation Comments Range Hammond Lt Chain,Free 129.5 mg/L 3.3-19.4 H (test code = 75150-7) Lambda Lt 99.3 mg/L 5.7-26.3 H Chain,Free (test code = 58693-2) Hammond/Lambda,Free 1.3 0.26-1.65 Free shantell a/lambda (test code [...] = Performing Lab ISSA) EZ [facility] [address] [place] [address] Awais Cedeno MD, PhD, TOMY Lab Interpretation Abnormal (test code = 32906-7) [facility] lambda light chains, [id number] 10:53:00 Test Item Value Reference Interpretation Comments Range Hammond Lt Chain,Free 129.5 mg/L 3.3-19.4 H (test code = 57741-3) Lambda Lt 99.3 mg/L 5.7-26.3 H Chain,Free (test code = 37106-4) Hammond/Lambda,Free 1.3 0.26-1.65 Free shantell a/lambda (test code [...] = Performing Lab ISSA) EZ [facility] [address] [place] [address] Awais Cedeno MD, PhD, TOMY Lab Interpretation Abnormal (test code = 73613-4) [facility] lambda light chains, [id number] 10:53:00 Test Item Value Reference Interpretation Comments Range Hammond Lt Chain,Free 129.5 mg/L 3.3-19.4 H (test code = 77025-0) Lambda Lt 99.3 mg/L 5.7-26.3 H Chain,Free (test code = 43516-4) Hammond/Lambda,Free 1.3 0.26-1.65 Free shantell a/lambda (test code [...] (test code = Performing Lab ISSA) EZ [facility] [address] [place] [address] Awais Cedeno MD, PhD, TOMY Lab Interpretation Abnormal (test code = 59827-5) [facility] lambda light chains, [id number] 10:53:00 Test Item Value Reference Interpretation Comments Range Hammond Lt Chain,Free 129.5 mg/L 3.3-19.4 H (test code = 14199-0) Lambda Lt 99.3 mg/L 5.7-26.3 H Chain,Free (test code = 38265-7) Hammond/Lambda,Free 1.3 0.26-1.65 Free shantell a/lambda (test code [...] = Performing Lab ISSA) EZ [facility] [address] [place] [address] Awais Cedeno MD, PhD, TOMY Lab Interpretation Abnormal (test code = 96530-4) [facility] [id number] 08:14:00 Test Item Value Reference Range Interpretation Comments POC-GLUCOSE METER 107 mg/dL 70-110 : Notified RN/MD: TESTED (BEAKER) (test code AT [address] = 1538) [facility]NDCandidoSENT[facility] [address]: Electric Razor Mechanic/Techni cornelia ID = [id number] for Kenny weissDequanhansaankur BASIC METABOLIC [id number] 05:19:00 Test Item Value Reference Range Interpretation [...] S NOT APPLICABLE FOR DIALYSIS PATIEN TS. Electric Razor Mechanic ID - ANSBERTOGOperator ID - ANSBERTOGOperator ID - ANSBERTOGOperator ID - ANSBERTOGOperatorID - ANSBERTOGOperator ID - ANSBERTOGOperator ID - ANSBERTOGOperator ID - ANSBERTOGOperator ID - ANSBERTOGOperator ID - ANSBERTOGOperator ID - ANSBERTOGOperator ID - ANSBERTOGOperator ID - ANSBERTOG CBC W/PLT COUNT & AUTO [id number] 05:05:00 Test Item Value Reference Range Interpretation [...] PERCENT (BEAKER) (test code = 2801) POCT-GLUCOSE [id number] 22:18:00 Test Item Value Reference Range Interpretation Comments POC-GLUCOSE METER 190 mg/dL 70-110 H : TESTED A T [facility] (BEAKER) (test code [address], = 1538) [place] [address]: Electric Razor Mechanic/Techni cornelia ID = [id number] for John Basilio POCT-GLUCOSE [id number] 15:30:00 Test Item Value Reference Range Interpretation Comments POC-GLUCOSE METER 197 mg/dL 70-110 H : TESTED A T [facility] (BEAKER) (test code [address], = 1538) [place] [id number]: Electric Razor Mechanic/Techni cornelia ID = [id number] for Buff ord, Jesi Protein electrophoresis, [id number] 14:18:00 Test Item Value Reference Range Interpretation Comments Albumin Fraction 2.5 See_Comment L [Automated (test code = 405) message] [employer] system which generated this result transmitted reference range : 3.5 - 5.5 gm/dL . The reference range was not used to interpr et this result as normal/abnormal . Alpha 1 Fraction 0.3 See_Comment [Automated (test code = 389) message] [employer] system which generated this result transmitted reference range : 0.2 - 0.4 gm/dL . The reference range was not used to interpr et this result as normal/abnormal . Alpha 2 Fraction 0.8 See_Comment [Automated (test code = 390) message] [employer] system which generated this result transmitted reference [...] 5.4 See_Comment L [Autom ated code = 5433) message] The system which generated this result transmitted reference range : 6.0 - 8.3 gm/dL . The reference range was not used to interpr et this result as normal/abnormal . 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 ID - PIAYA L Lab Interpretation Abnormal (test code = 69605-3) [facility] [id number] 14:18:00 Test Item Value Reference Range Interpretation Comments Albumin Fraction 2.5 See_Comment L [Automated (test code = 405) message] T system which generated this result transmitted reference range : 3.5 - 5.5 gm/dL . The reference range was not used to interpr et this result as normal/abnormal . Alpha 1 Fraction 0.3 See_Comment [Automated (test code = 389) message] [employer] system which generated this result transmitted reference range : 0.2 - 0.4 gm/dL . The reference range was not used to interpr et this result as normal/abnormal . Alpha 2 Fraction 0.8 See_Comment [Automated (test code = 390) message] [employer] system which generated this result transmitted reference [...] 5.4 See_Comment L [Autom ated code = 2860) message] The system which generated this result transmitted reference range : 6.0 - 8.3 gm/dL . The reference range was not used to interpr et this result as normal/abnormal . 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 ID - PIAYA L Lab Interpretation Abnormal (test code = 85174-4) [facility], [id number] 14:18:00 Test Item Value Reference Range Interpretation Comments Albumin Fraction 2.5 See_Comment L [Automated (test code = 405) message] [employer] system which generated this result transmitted reference range : 3.5 - 5.5 gm/dL . The reference range was not used to interpr et this result as normal/abnormal . Alpha 1 Fraction 0.3 See_Comment [Automated (test code = 389) message] [employer] system which generated this result transmitted reference range : 0.2 - 0.4 gm/dL . The reference range was not used to interpr et this result as normal/abnormal . Alpha 2 Fraction 0.8 See_Comment [Automated (test code = 390) message] [employer] system which generated this result transmitted reference [...] 5.4 See_Comment L [Autom ated code = 5086) message] The system which generated this result transmitted reference range : 6.0 - 8.3 gm/dL . The reference range was not used to interpr et this result as normal/abnormal . 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 ID - PIAYA L Lab Interpretation Abnormal (test code = 45867-8) [facility], [id number] 14:18:00 Test Item Value Reference Range Interpretation Comments Albumin Fraction 2.5 See_Comment L [Automated (test code = 405) message] [employer] system which generated this result transmitted reference range : 3.5 - 5.5 gm/dL . The reference range was not used to interpr et this result as normal/abnormal . Alpha 1 Fraction 0.3 See_Comment [Automated (test code = 389) message] [employer] system which generated this result transmitted reference range : 0.2 - 0.4 gm/dL . The reference range was not used to interpr et this result as normal/abnormal . Alpha 2 Fraction 0.8 See_Comment [Automated (test code = 390) message] [employer] system which generated this result transmitted reference [...] 5.4 See_Comment L [Autom ated code = 5770) message] The system which generated this result transmitted reference range : 6.0 - 8.3 gm/dL . The reference range was not used to interpr et this result as normal/abnormal . 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 ID - PIAYA L Lab Interpretation Abnormal (test code = 04193-1) [facility], [id number] 14:18:00 Test Item Value Reference Range Interpretation Comments Albumin Fraction 2.5 See_Comment L [Automated (test code = 405) message] T system which generated this result transmitted reference range : 3.5 - 5.5 gm/dL . The reference range was not used to interpr et this result as normal/abnormal . Alpha 1 Fraction 0.3 See_Comment [Automated (test code = 389) message] [employer] system which generated this result transmitted reference range : 0.2 - 0.4 gm/dL . The reference range was not used to interpr et this result as normal/abnormal . Alpha 2 Fraction 0.8 See_Comment [Automated (test code = 390) message] [employer] system which generated this result transmitted reference [...] 5.4 See_Comment L [Autom ated code = 6760) message] The system which generated this result transmitted reference range : 6.0 - 8.3 gm/dL . The reference range was not used to interpr et this result as normal/abnormal . 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 ID - PIAYA L Lab Interpretation Abnormal (test code = 06917-2) [facility], [id number] 14:18:00 Test Item Value Reference Range Interpretation Comments Albumin Fraction 2.5 See_Comment L [Automated (test code = 405) message] [employer] system which generated this result transmitted reference range : 3.5 - 5.5 gm/dL . The reference range was not used to interpr et this result as normal/abnormal . Alpha 1 Fraction 0.3 See_Comment [Automated (test code = 389) message] [employer] system which generated this result transmitted reference range : 0.2 - 0.4 gm/dL . The reference range was not used to interpr et this result as normal/abnormal . Alpha 2 Fraction 0.8 See_Comment [Automated (test code = 390) message] [employer] system which generated this result transmitted reference [...] 5.4 See_Comment L [Autom ated code = 3260) message] The system which generated this result transmitted reference range : 6.0 - 8.3 gm/dL . The reference range was not used to interpr et this result as normal/abnormal . 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 ID - PIAYA L Lab Interpretation Abnormal (test code = 61299-3) [facility], [id number] 14:18:00 Test Item Value Reference Range Interpretation [...] 5.4 See_Comment L [Autom ated code = 6880) message] The system which generated this result transmitted reference range : 6.0 - 8.3 gm/dL . The reference range was not used to interpr et this result as normal/abnormal . 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 ID - PIAYA L Lab Interpretation Abnormal (test code = 92860-8) [facility] ELECTROPHORESIS, [id number] 14:18:00 Test Item Value Reference Range Interpretation [...] of acute inflammation. No monoclonal bands detected. [id number] Angela Howe MD (BEAKER) (test code = (electronic signature) 2616) PROTEIN TOTAL SERUM, 5.4 gm/dL 6.0-8.3 L SPEP (BEAKER) (test code = 2660) Electric Razor Mechanic ID - PAVEL LANAEROBIC [id number] 14:06:00 Test Item Value Reference Range Interpretation Comments CULTURE (BEAKER) (test No anaerobes isolated code = 1095) ANAEROBIC [id number] 14:05:00 Test Item Value Reference Range Interpretation Comments CULTURE (BEAKER) (test No anaerobes isolated code = 1095) POCT-GLUCOSE [id number] 11:50:00 Test Item Value Reference Range Interpretation Comments POC-GLUCOSE METER 151 mg/dL 70-110 H : [facility] ([facility] (test code [address], = 1538) [facility] [address]: Electric Razor Mechanic/Techni cornelia ID = [id number] for Buff ord, Jsei ANG, NON-TUNNELED CATH/PICC >5 Y.O. WITH [id number] 11:32:00Reason for exam:->PICC line placement for care home IV abx. Okay to place [facility] 1975 Sex: MFINAL REPORT Procedure: PICC line insertion. History: Need for long-term IV access. Environmental Remediation Engineer: Charlie Grigsby MD. Sales Development Executive: None Modality: Sonography and fluoroscopy. DOSE REDUCTION: [...] and fluoroscopic guided placement of a 5 Greek dual lumen PICC line via a right mid upper arm brachial vein approach with the catheter tip in distal SVC/RA, a satisfactory position for use. Thank you for the opportunity to assist in the care of your patient. Signed: Charlie Grigsby MDReport Verified Date/Time: 04/05/2020 11:32:55 Reading Location: [facility] Radiology Reading Room IR PICC line placement older than 5 [id number] 11:32:00 Interface, External Ris In - 04/05/2020 11:35 AM CSTFINAL REPORT Procedure: PICC line insertion. History: Need for long-term IV access. Environmental Remediation Engineer: Charlie Grigsby MD. Sales Development Executive: None Modality: Sonography and fluoroscopy. DOSE REDUCTION: [...] and fluoroscopic guided placement of a 5 Greek dual lumen PICC line via a right mid upper arm brachial vein approach with the catheter tip in distal SVC/RA, a satisfactory position for use. Thank you for the opportunity to assist in the care of your patient. Signed: Charlie Grigsby MDReport Verified Date/Time: 04/05/2020 11:32:55 Reading Location: [facility] than 5 [id number] 11:32:00 Interface, External Ris In - 04/05/2020 11:35 AM CSTFINAL REPORT Procedure: PICC line insertion. History: Need for long-term IV access. Environmental Remediation Engineer: Charlie Grigsby MD. Sales Development Executive: None Modality: Sonography and fluoroscopy. DOSE REDUCTION: [...] and fluoroscopic guided placement of a 5 Greek dual lumen PICC line via a right mid upper arm brachial vein approach with the catheter tip in distal SVC/RA, a satisfactory position for use. Thank you for the opportunity to assist in the care of your patient. Signed: Charlie Grigsby MDReport Verified Date/Time: 04/05/2020 11:32:55 Reading Location: [facility]iology [facility] older than 5 [id number] 11:32:00 Interface, External Ris In - 04/05/2020 11:35 AM CSTFINAL REPORT Procedure: PICC line insertion. History: Need for long-term IV access. Environmental Remediation Engineer: Charlie Grigsby MD. Sales Development Executive: None Modality: Sonography and fluoroscopy. DOSE REDUCTION: [...] and fluoroscopic guided placement of a 5 Greek dual lumen PICC line via a right mid upper arm brachial vein approach with the catheter tip in distal SVC/RA, a satisfactory position for use. Thank you for the opportunity to assist in the care of your patient. Signed: Charlie Grigsby MDReport Verified Date/Time: 04/05/2020 11:32:55 Reading Location: [facility] Radiology [facility] older than 5 [id number] 11:32:00 Interface, External Ris In - 04/05/2020 11:35 AM CSTFINAL REPORT Procedure: PICC line insertion. History: Need for long-term IV access. Environmental Remediation Engineer: Charlie Grigsby MD. Sales Development Executive: None Modality: Sonography and fluoroscopy. DOSE REDUCTION: [...] and fluoroscopic guided placement of a 5 Greek dual lumen PICC line via a right mid upper arm brachial vein approach with the catheter tip in distal SVC/RA, a satisfactory position for use. Thank you for the opportunity to assist in the care of your patient. Signed: Charlie Grigsby Verified Date/Time: 04/05/2020 11:32:55 Reading Location: [facility] Radiology Reading Room [facility] [id number] 09:34:00 Test Item Value Reference Range Interpretation Comments POC-GLUCOSE METER 72 mg/dL 70-110 : TESTED A T [facility] [address] (RoamlerAKER) (test code = [address], 1538) [place] [address]: Electric Razor Mechanic/Techni cornelia ID = [id number] for Chencho h, Rina POCT-GLUCOSE [id number] 08:11:00 Test Item Value Reference Range Interpretation Comments POC-GLUCOSE METER 83 mg/dL 70-110 : [facility] ([facility]ER) (test code = [address], 1538) [place] [address]: Electric Razor Mechanic/Techni cornelia ID = [id number] for Tanesha Espinale BASIC METABOLIC [id number] 06:57:00 Test Item Value Reference Range Interpretation [...] S NOT APPLICABLE FOR DIALYSIS PATIEN TS. Electric Razor Mechanic ID - LITOOperator ID - LITOOperator ID - LITOOperator ID - LITOOperator ID - LITOOperator ID - LITOOperator ID - LITOOperator ID - LITOOperator ID - LITOOperator ID - LITOOperator ID - LITOOperator ID - LITOOperator ID - LITOCBC W/PLT COUNT & AUTO [id number] 05:55:00 Test Item Value Reference Range Interpretation [...] = No growth in 5 days 6463-4) [facility] 2020-04-05 01:01:00 Test Item Value Reference Range Interpretation Comments Result (test code = No growth in 5 days 6463-4) [facility] 2020-04-05 01:01:00 Test Item Value Reference Range Interpretation Comments Result (test code = No growth in 5 days 6463-4) [facility] ([facility]uncture) 2020-04-05 01:01:00 Test Item Value Reference Range Interpretation Comments Result (test code = No growth in 5 days 6463-4) [facility] Culture - Routine (Left Venipuncture) 2020-04-05 01:01:00 Test Item Value Reference Range Interpretation Comments Result (test code = No growth in 5 days 6463-4) [facility] Culture - Routine (Left Venipuncture) 2020-04-05 01:01:00 Test Item Value Reference Range Interpretation Comments Result (test code = No growth in 5 days 6463-4) [facility] Culture - Routine (Left Venipuncture) 2020-04-05 01:01:00 Test Item Value Reference Range Interpretation Comments Result (test code = No growth in 5 days 6463-4) [facility] [id number] 01:01:00 Test Item Value Reference Range Interpretation Comments CULTURE (BEAKER) (test No growth in 5 days code = 1095) BLOOD [id number] 01:01:00 Test Item Value Reference Range Interpretation Comments CULTURE (BEAKER) (test No growth in 5 days code = 1095) Vancomycin level, [id number] 00:11:00 Test Item Value Reference Range Interpretation Comments Vancomycin Tr (test code = 17.1 ug/mL 10-20 4092-3) 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 ID - ARCHIE Lab Interpretation (test Normal code = 30565-3) [facility], [id number] 00:11:00 Test Item Value Reference Range Interpretation Comments Vancomycin Tr (test code = 17.1 ug/mL 10-20 4092-3) 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 ID - ARCHIE Lab Interpretation (test Normal code = 23499-7) [facility], [id number] 00:11:00 Test Item Value Reference Range Interpretation Comments Vancomycin Tr (test code = 17.1 ug/mL 10-20 4092-3) 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 ID - ARCHIE Lab Interpretation (test Normal code = 23708-9) [facility], [id number] 00:11:00 Test Item Value Reference Range Interpretation Comments Vancomycin Tr (test code = 17.1 ug/mL 10-20 4092-3) 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 ID - ARCHIE Lab Interpretation (test Normal code = 21621-5) [facility] [id number] 00:11:00 Test Item Value Reference Range Interpretation Comments Vancomycin Tr (test code = 17.1 ug/mL 10.0-20.0 4092-3) 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 ID - ARCHIE Lab Interpretation (test Normal code = 30303-9) [facility], [id number] 00:11:00 Test Item Value Reference Range Interpretation Comments Vancomycin Tr (test code = 17.1 ug/mL 10.0-20.0 4092-3) 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 ID - ARCHIE Lab Interpretation (test Normal code = 52445-5) [facility], [id number] 00:11:00 Test Item Value Reference Range Interpretation Comments Vancomycin Tr (test code = 17.1 ug/mL 10.0-20.0 4092-3) 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 ID - ARCHIE Lab Interpretation (test Normal code = 85604-1) [facility] [id number] 00:11:00 Test Item Value Reference Range Interpretation Comments VANCOMYCIN TROUGH (BEAKER) (test 17.1 ug/mL 10.0-20.0 code = 522) Electric Razor Mechanic ID - LITOPOCT-GLUCOSE [id number] 21:26:00 Test Item Value Reference Range Interpretation Comments POC-GLUCOSE METER 234 mg/dL 70-110 H : TESTED A T [facility] (BEAKER) (test code [address], = 1538) [facility] [address]: Electric Razor Mechanic/Techni cornelia ID = [id number] for Tiff Roach POCT-GLUCOSE [id number] 15:54:00 Test Item Value Reference Range Interpretation Comments POC-GLUCOSE METER 200 mg/dL 70-110 H : TESTED A T [facility] (BEAKER) (test code [address], = 1538) [facility] [address]: Electric Razor Mechanic/Techni cornelia ID = [id number] for Tiff Roach POCT-GLUCOSE [id number] 11:48:00 Test Item Value Reference Range Interpretation Comments POC-GLUCOSE METER 197 mg/dL 70-110 H : TESTED A T [facility] (BEAKER) (test code [address], = 1538) [place] [address]: Electric Razor Mechanic/Techni cornelia ID = [id number] for Tiff Roach Hepatitis panel, [id number] 10:58:00 Test Item Value Reference Range Interpretation Comments Hep A IgM (test code = Nonreactive Nonreactive 45601-6) Hep B C IgM (test code = Nonreactive Nonreactive 87230-1) Hepatitis C Ab (test Nonreactive Nonreactive code = 87827-0) HBsAg Screen (test code Nonreactive Nonreactive = 5195-3) 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 ID - BARRERA M Lab Interpretation (test Normal code = 61580-9) [facility] panel, [id number] 10:58:00 Test Item Value Reference Range Interpretation Comments Hep A IgM (test code = Nonreactive Nonreactive 79253-4) Hep B C IgM (test code = Nonreactive Nonreactive 80594-4) Hepatitis C Ab (test Nonreactive Nonreactive code = 04841-8) HBsAg Screen (test code Nonreactive Nonreactive = 5195-3) 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 ID - BARRERA M Lab Interpretation (test Normal code = 43393-9) [facility], [id number] 10:58:00 Test Item Value Reference Range Interpretation Comments Hep A IgM (test code = Nonreactive Nonreactive 51671-1) Hep B C IgM (test code = Nonreactive Nonreactive 23995-0) Hepatitis C Ab (test Nonreactive Nonreactive code = 66153-5) HBsAg Screen (test code Nonreactive Nonreactive = 5195-3) 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 ID - BARRERA M Lab Interpretation (test Normal code = 87250-3) [facility], [id number] 10:58:00 Test Item Value Reference Range Interpretation Comments Hep A IgM (test code = Nonreactive Nonreactive 69644-7) Hep B C IgM (test code = Nonreactive Nonreactive 85933-7) Hepatitis C Ab (test Nonreactive Nonreactive code = 94246-0) HBsAg Screen (test code Nonreactive Nonreactive = 5195-3) 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 ID - BARRERA M Lab Interpretation (test Normal code = 62537-5) [facility] panel, [id number] 10:58:00 Test Item Value Reference Range Interpretation Comments Hep A IgM (test code = Nonreactive Nonreactive 97224-9) Hep B C IgM (test code = Nonreactive Nonreactive 87072-6) Hepatitis C Ab (test Nonreactive Nonreactive code = 08522-1) HBsAg Screen (test code Nonreactive Nonreactive = 5195-3) 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 ID - BARRERA M Lab Interpretation (test Normal code = 96362-4) [facility] panel, [id number] 10:58:00 Test Item Value Reference Range Interpretation Comments Hep A IgM (test code = Nonreactive Nonreactive 40549-1) Hep B C IgM (test code = Nonreactive Nonreactive 04595-4) Hepatitis C Ab (test Nonreactive Nonreactive code = 05773-4) HBsAg Screen (test code Nonreactive Nonreactive = 5195-3) 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 ID - BARRERA M Lab Interpretation (test Normal code = 34896-5) [facility] panel, [id number] 10:58:00 Test Item Value Reference Range Interpretation Comments Hep A IgM (test code = Nonreactive Nonreactive 74790-2) Hep B C IgM (test code = Nonreactive Nonreactive 31708-5) Hepatitis C Ab (test Nonreactive Nonreactive code = 53548-0) HBsAg Screen (test code Nonreactive Nonreactive = 5195-3) 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 ID - BARRERA M Lab Interpretation (test Normal code = 31928-5) [facility] PANEL, [id number] 10:58:00 Test Item Value Reference Range Interpretation Comments HEPATITIS A IGM ANTIBODY (BEAKER) Nonreactive Nonreactive (test code = 498) HEPATITIS B CORE IGM ANTIBODY Nonreactive Nonreactive (BEAKER) (test code = 645) HEPATITIS C ANTIBODY (BEAKER) Nonreactive Nonreactive (test code = 367) HEPATITIS B SURFACE ANTIGEN (2) Nonreactive Nonreactive (BEAKER) (test code = 2585) Electric Razor Mechanic ID - BARRERA MUREA NITROGEN, RANDOM [id number] 10:45:00 Test Item Value Reference Range Interpretation Comments UREA NITROGEN URINE (BEAKER) (test 528 mg/dL code = 538) Reference Range: No NormalsOperator ID - BARRERA MSURGICALLY OBTAINED CULTURE + GRAM [id number] 10:30:00 Test Item Value Reference Range Interpretation Comments CULTURE (BEAKER) A <1+ Coagula se negative (test code = Staphylococcus 1095) GRAM STAIN No WBCs RESULT (BEAKER) (test code = 1123) GRAM STAIN 2+ gram positive RESULT (BEAKER) cocci in pairs (test code = and clusters 873421) SURGICALLY OBTAINED CULTURE + GRAM [id number] 09:52:00 Test Item Value Reference Range Interpretation Comments CULTURE (BEAKER) A <1+ Viridan s (test code = Streptococcus 1095) GRAM STAIN No WBCs RESULT (BEAKER) (test code = 1123) GRAM STAIN No organisms seen RESULT (BEAKER) (test code = 128048) TISSUE [id number] 09:51:00Surgical Pathology Report Case: [id number] Authorizing Provider: Laura Nguyen DPM Collected: 04/01/2020 01:12 PM Ordering Location: [facility] Med Surg 5th Floor Received: 04/02/2020 08:38 AM Pathologist: Hilda Mack MD Specimen: Fo ot, Left, Bone biopsy 1st metatarsal, left BONE, FIRST LEFT METATARSAL, BIOPSY: - BONE WITH FOCAL REPARATIVE/REGENERATIVE CHANGES - NO ACUTE OSTEOMYELITIS ISSEEN Signing Pathologist Direct Phone Line: [phone] signed by Hilda Mack MD on 04/04/2020 at 9:51 [id number]; [id number] infectionBone biopsy first metatarsal, leftThespecimen is received in fixative and labeled with the patient's name, medical record number and designated as "foot left" and consists of a bone core biopsy measuring 1.5 cm in length and 0.2 cm in diameter. The specimen is entirely submitted into A1 and into decal solution. MG/pl Performed [facility], Department of Pathology, [address] [place] [address], Xybepv [facility], Department of Pathology, [address] [place] [address], [facility], [facility] of [facility]ology, [address] [place] [address], DBCV-GLUCOSE METER 2020-04-04 08:22:00 Test Item Value Reference Range Interpretation Comments POC-GLUCOSE METER 167 mg/dL 70-110 H : TESTED A T SLSL 1317 (BEAKER) (test code [facility] [address], = 1538) [place] [id number]: Electric Razor Mechanic/Techni cornelia ID = [id number] for Tiff Roach PTH, [id number] 07:24:00 Test Item Value Reference Range Interpretation Comments PARATHYROID HORMONE INTACT 365.7 pg/mL 15.0-90.0 H (BEAKER) (test code = 577) Electric Razor Mechanic ID - [id number] METABOLIC [id number] 06:33:00 Test Item Value Reference Range Interpretation [...] S NOT APPLICABLE FOR DIALYSIS PATIEN TS. Electric Razor Mechanic ID - [id number] ID - [id number] ID - [id number] ID - [id number] ID - DAUN36Zmftojiu ID - [id number] ID - RQXR56Ufahsput ID - [id number] ID - CYEC92Pzzqdlrw ID - UVXJ37Kijbgstn ID - XJXD50Fnieujsf ID - [id number] ID - [id number] W/PLT COUNT & AUTO [id number] 06:01:00 Test Item Value Reference Range Interpretation [...] PERCENT (BEAKER) (test code = 2801) POCT-GLUCOSE [id number] 21:43:00 Test Item Value Reference Range Interpretation Comments POC-GLUCOSE METER 242 mg/dL 70-110 H : TESTED A T [facility]SL 1317 (BEAKER) (test code [facility] [address], = 1538) [facility] 77 [address]: Electric Razor Mechanic/Techni cornelia ID = [id number] for Heidy Barrow HIV-1 Antigen with HIV-1/2 [id number] 18:37:00 Test Item Value Reference Range Interpretation Comments HIV-1 Antigen with HIV Nonreactive Nonreactive 1&2 Antibody (test code = 55194-7) 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 ID - [id number] Lab Interpretation (test Normal code = 85782-0) [facility]2 [id number] 18:37:00 Test Item Value Reference Range Interpretation Comments HIV-1 Antigen with HIV Nonreactive Nonreactive 1&2 Antibody (test code = 55982-1) 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 ID - [id number] Lab Interpretation (test Normal code = 57411-7) [facility] with HIV-1/2 [id number] 18:37:00 Test Item Value Reference Range Interpretation Comments HIV-1 Antigen with HIV Nonreactive Nonreactive 1&2 Antibody (test code = 96965-2) 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 ID - [id number] Lab Interpretation (test Normal code = 51580-7) [facility] Ant[facility] with HIV-1/2 [id number] 18:37:00 Test Item Value Reference Range Interpretation Comments HIV-1 Antigen with HIV Nonreactive Nonreactive 1&2 Antibody (test code = 63278-2) 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 ID - [id number] Lab Interpretation (test Normal code = 43392-3) [facility] Antigen with HIV-1/2 [id number] 18:37:00 Test Item Value Reference Range Interpretation Comments HIV-1 Antigen with HIV Nonreactive Nonreactive 1&2 Antibody (test code = 70244-2) 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 ID - [id number] Lab Interpretation (test Normal code = 19413-6) [facility] Antigen with HIV-1/2 [id number] 18:37:00 Test Item Value Reference Range Interpretation Comments HIV-1 Antigen with HIV Nonreactive Nonreactive 1&2 Antibody (test code = 77144-4) 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 ID - [id number] Lab Interpretation (test Normal code = 28506-5) [facility] Antigen with HIV-1/2 [id number] 18:37:00 Test Item Value Reference Range Interpretation Comments HIV-1 Antigen with HIV Nonreactive Nonreactive 1&2 Antibody (test code = 72141-2) 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 ID - [id number] Lab Interpretation (test Normal code = 90264-4) [facility] ANTIGEN WITH HIV-1/2 [id number] 18:37:00 Test Item Value Reference Range Interpretation Comments HIV-1 ANTIGEN WITH HIV 1\\T\\2 Nonreactive Nonreactive ANTIBODY (2) (BEAKER) (test code = 2586) Electric Razor Mechanic ID - [id number] METABOLIC [id number] 17:38:00 Test Item Value Reference Range Interpretation [...] S NOT APPLICABLE FOR DIALYSIS PATIEN TS. Electric Razor Mechanic ID - [id number] ID - [id number] ID - [id number] ID - [id number] ID - [id number] ID - [id number] ID - [id number] ID - [id number] ID - [id number] ID - [id number] ID - [id number] ID - [id number] ID - [id number] W/PLT COUNT & AUTO [id number] 17:24:00 Test Item Value Reference Range Interpretation [...] PERCENT (BEAKER) (test code = 2801) POCT-GLUCOSE [id number] 16:16:00 Test Item Value Reference Range Interpretation Comments POC-GLUCOSE METER 228 mg/dL 70-110 H : TESTED A T [facility] 1317 (BEAKER) (test code [facility] [address], = 1538) [facility] 77 [address]: Electric Razor Mechanic/Techni cornelia ID = [id number] for Tiff Roach WOUND CULTURE + GRAM [id number] 14:46:00 Test Item Value Reference Interpretation Comments [...] 4+ Mixed geri (BEAKER) (test code = 665101) 3+ Skin floraPOCT-GLUCOSE [id number] 11:46:00 Test Item Value Reference Range Interpretation Comments POC-GLUCOSE METER 251 mg/dL 70-110 H : TESTED A T [facility] 1317 (BEAKER) (test code [facility] [address], = 1538) [facility] 77 [address]: Electric Razor Mechanic/Techni cornelia ID = [id number] for Tiff Roach PROTEIN, RANDOM [id number] 11:18:00 Test Item Value Reference Range Interpretation Comments PROTEIN, URINE (BEAKER) (test code 214 mg/dL 0-14 H = 1569) Electric Razor Mechanic ID - [id number] ID - [id number], RANDOM [id number] 11:02:00 Test Item Value Reference Range Interpretation Comments CREATININE URINE (BEAKER) (test 129.1 mg/dL code = 375) Reference Range: No NormalsOperator ID - [id number], RANDOM [id number] 11:00:00 Test Item Value Reference Range Interpretation Comments SODIUM URINE (BEAKER) (test code = 20 meq/L 243) Reference Range: No NormalsOperator ID - [id number] 11:00:00 Test Item Value Reference Range Interpretation Comments PHOSPHORUS (BEAKER) (test code = 5.0 mg/dL 2.5-4.5 H 604) Electric Razor Mechanic ID - [id number] w/Gowslpuknlp7648-45-49 10:57:00 Test Item Value Reference Range Interpretation Comments Color, UA (test code Yellow = 5778-6) Clarity, UA (test Slightly Cloudy code = 5767-9) Specific Ashley, UA 1.025 1.001-1.035 (test code = 5811-5) pH, UA (test code = 5.0 5.0-8.0 5803-2) Protein, UA (test 100 mg/dL Negative A code = 57317-9) Glucose, UA (test Negative Negative code = 365) Ketones, UA (test Negative Negative code = 2514-8) Bilirubin, UA (test Negative Negative code = 79165-6) Blood, UA (test code Small Negative A = 68255-7) Nitrite, UA (test Negative Negative code = 5802-4) Leukocytes, UA (test Negative Negative code = 5799-2) Urobilinogen, UA 0.2 mg/dL 0.2-1 (test code = 69826-7) Bacteria, UA (test Occasional code = 61771-8) RBC, UA (test code = 5-10 See_Comment [Autom ated 799-7) message] The system which generated this result transmitted reference range : /HPF. The reference range was not used to interpret this result as normal/abnormal . WBC, UA (test code = <5 See_Comment [Autom ated 46751-4) message] The system which generated this result transmitted reference range : /HPF. The reference range was not used to interpret this result as normal/abnormal . SQUAMOUS EPITHELIAL <5 See_Comment [Automa josé luis (test code = 01303-6) messag e] The system which generated this result transmitted reference range : /HPF. The reference range was not used to interpret this result as normal/abnormal . Specimen Source (test code = 2795) Lab Interpretation Abnormal (test code = 82512-5) [facility]/Ddnmmgqjgkl4801-98-77 10:57:00 Test Item Value Reference Range Interpretation Comments Color, UA (test code Yellow = 5778-6) Clarity, UA (test Slightly Cloudy code = 5767-9) Specific Ashley, UA 1.025 1.001-1.035 (test code = 5811-5) pH, UA (test code = 5.0 5.0-8.0 5803-2) Protein, UA (test 100 mg/dL Negative A code = 86877-8) Glucose, UA (test Negative Negative code = 365) Ketones, UA (test Negative Negative code = 2514-8) Bilirubin, UA (test Negative Negative code = 99720-1) Blood, UA (test code Small Negative A = 42224-2) Nitrite, UA (test Negative Negative code = 5802-4) Leukocytes, UA (test Negative Negative code = 5799-2) Urobilinogen, UA 0.2 mg/dL 0.2-1 (test code = 52024-6) Bacteria, UA (test Occasional code = 98328-5) RBC, UA (test code = 5-10 See_Comment [Autom ated 799-7) message] The system which generated this result transmitted reference range : /HPF. The reference range was not used to interpret this result as normal/abnormal . WBC, UA (test code = <5 See_Comment [Autom ated 33220-8) message] The system which generated this result transmitted reference range : /HPF. The reference range was not used to interpret this result as normal/abnormal . SQUAMOUS EPITHELIAL <5 See_Comment [Automa josé luis (test code = 67438-3) messag e] The system which generated this result transmitted reference range : /HPF. The reference range was not used to interpret this result as normal/abnormal . Specimen Source (test code = 2795) Lab Interpretation Abnormal (test code = 49288-1) [facility]/Bubzlyxprvu0000-27-77 10:57:00 Test Item Value Reference Range Interpretation Comments Color, UA (test code Yellow = 5778-6) Clarity, UA (test Slightly Cloudy code = 5767-9) Specific Ashley, UA 1.025 1.001-1.035 (test code = 5811-5) pH, UA (test code = 5.0 5.0-8.0 5803-2) Protein, UA (test 100 mg/dL Negative A code = 81250-2) Glucose, UA (test Negative Negative code = 365) Ketones, UA (test Negative Negative code = 2514-8) Bilirubin, UA (test Negative Negative code = 30753-1) Blood, UA (test code Small Negative A = 11644-7) Nitrite, UA (test Negative Negative code = 5802-4) Leukocytes, UA (test Negative Negative code = 5799-2) Urobilinogen, UA 0.2 mg/dL 0.2-1 (test code = 76884-9) Bacteria, UA (test Occasional code = 27372-4) RBC, UA (test code = 5-10 See_Comment [Autom ated 799-7) message] The system which generated this result transmitted reference range : /HPF. The reference range was not used to interpret this result as normal/abnormal . WBC, UA (test code = <5 See_Comment [Autom ated 96749-2) message] The system which generated this result transmitted reference range : /HPF. The reference range was not used to interpret this result as normal/abnormal . SQUAMOUS EPITHELIAL <5 See_Comment [Automa josé luis (test code = 56830-3) messag e] The system which generated this result transmitted reference range : /HPF. The reference range was not used to interpret this result as normal/abnormal . Specimen Source (test code = 2795) Lab Interpretation Abnormal (test code = 23138-0) [facility]/Ilzoqndjyxx2280-38-70 10:57:00 Test Item Value Reference Range Interpretation Comments Color, UA (test code Yellow = 5778-6) Clarity, UA (test Slightly Cloudy code = 5767-9) Specific Ashley, UA 1.025 1.001-1.035 (test code = 5811-5) pH, UA (test code = 5.0 5.0-8.0 5803-2) Protein, UA (test 100 mg/dL Negative A code = 09416-5) Glucose, UA (test Negative Negative code = 365) Ketones, UA (test Negative Negative code = 2514-8) Bilirubin, UA (test Negative Negative code = 75385-7) Blood, UA (test code Small Negative A = 83263-9) Nitrite, UA (test Negative Negative code = 5802-4) Leukocytes, UA (test Negative Negative code = 5799-2) Urobilinogen, UA 0.2 mg/dL 0.2-1 (test code = 70554-9) Bacteria, UA (test Occasional code = 55206-3) RBC, UA (test code = 5-10 See_Comment [Autom ated 799-7) message] The system which generated this result transmitted reference range : /HPF. The reference range was not used to interpret this result as normal/abnormal . WBC, UA (test code = <5 See_Comment [Autom ated 95233-3) message] The system which generated this result transmitted reference range : /HPF. The reference range was not used to interpret this result as normal/abnormal . SQUAMOUS EPITHELIAL <5 See_Comment [Automa josé luis (test code = 00963-8) messag e] The system which generated this result transmitted reference range : /HPF. The reference range was not used to interpret this result as normal/abnormal . Specimen Source (test code = 2795) Lab Interpretation Abnormal (test code = 01701-0) [facility]/Dbapfvmnpse9610-56-05 10:57:00 Test Item Value Reference Range Interpretation Comments Color, UA (test code Yellow = 5778-6) Clarity, UA (test Slightly Cloudy code = 5767-9) Specific Ashley, UA 1.025 1.001-1.035 (test code = 5811-5) pH, UA (test code = 5.0 5.0-8.0 5803-2) Protein, UA (test 100 mg/dL Negative A code = 84169-2) Glucose, UA (test Negative Negative code = 365) Ketones, UA (test Negative Negative code = 2514-8) Bilirubin, UA (test Negative Negative code = 14021-4) Blood, UA (test code Small Negative A = 26681-5) Nitrite, UA (test Negative Negative code = 5802-4) Leukocytes, UA (test Negative Negative code = 5799-2) Urobilinogen, UA 0.2 mg/dL 0.2-1.0 (test code = 04799-3) Bacteria, UA (test Occasional code = 76930-4) RBC, UA (test code = 5-10 See_Comment [Autom ated 799-7) message] The system which generated this result transmitted reference range : /HPF. The reference range was not used to interpret this result as normal/abnormal . WBC, UA (test code = <5 See_Comment [Autom ated 68047-0) message] The system which generated this result transmitted reference range : /HPF. The reference range was not used to interpret this result as normal/abnormal . SQUAMOUS EPITHELIAL <5 See_Comment [Automa josé luis (test code = 41875-4) messag e] The system which generated this result transmitted reference range : /HPF. The reference range was not used to interpret this result as normal/abnormal . Specimen Source (test code = 2795) Lab Interpretation Abnormal (test code = 53341-0) [facility]/Salfcasrcbs4443-07-06 10:57:00 Test Item Value Reference Range Interpretation Comments Color, UA (test code Yellow = 5778-6) Clarity, UA (test Slightly Cloudy code = 5767-9) Specific Ashley, UA 1.025 1.001-1.035 (test code = 5811-5) pH, UA (test code = 5.0 5.0-8.0 5803-2) Protein, UA (test 100 mg/dL Negative A code = 49921-6) Glucose, UA (test Negative Negative code = 365) Ketones, UA (test Negative Negative code = 2514-8) Bilirubin, UA (test Negative Negative code = 95823-8) Blood, UA (test code Small Negative A = 56540-8) Nitrite, UA (test Negative Negative code = 5802-4) Leukocytes, UA (test Negative Negative code = 5799-2) Urobilinogen, UA 0.2 mg/dL 0.2-1.0 (test code = 88658-6) Bacteria, UA (test Occasional code = 96462-1) RBC, UA (test code = 5-10 See_Comment [Autom ated 799-7) message] The system which generated this result transmitted reference range : /HPF. The reference range was not used to interpret this result as normal/abnormal . WBC, UA (test code = <5 See_Comment [Autom ated 95717-9) message] The system which generated this result transmitted reference range : /HPF. The reference range was not used to interpret this result as normal/abnormal . SQUAMOUS EPITHELIAL <5 See_Comment [Automa josé luis (test code = 34424-9) messag e] The system which generated this result transmitted reference range : /HPF. The reference range was not used to interpret this result as normal/abnormal . Specimen Source (test code = 2795) Lab Interpretation Abnormal (test code = 96045-0) [facility] w/Zojczxscyqe9128-85-86 10:57:00 Test Item Value Reference Range Interpretation Comments Color, UA (test code Yellow = 5778-6) Clarity, UA (test Slightly Cloudy code = 5767-9) Specific Ashley, UA 1.025 1.001-1.035 (test code = 5811-5) pH, UA (test code = 5.0 5.0-8.0 5803-2) Protein, UA (test 100 mg/dL Negative A code = 25421-2) Glucose, UA (test Negative Negative code = 365) Ketones, UA (test Negative Negative code = 2514-8) Bilirubin, UA (test Negative Negative code = 77372-6) Blood, UA (test code Small Negative A = 77483-6) Nitrite, UA (test Negative Negative code = 5802-4) Leukocytes, UA (test Negative Negative code = 5799-2) Urobilinogen, UA 0.2 mg/dL 0.2-1.0 (test code = 42473-5) Bacteria, UA (test Occasional code = 18152-1) RBC, UA (test code = 5-10 See_Comment [Autom ated 799-7) message] The system which generated this result transmitted reference range : /HPF. The reference range was not used to interpret this result as normal/abnormal . WBC, UA (test code = <5 See_Comment [Autom ated 46597-4) message] The system which generated this result transmitted reference range : /HPF. The reference range was not used to interpret this result as normal/abnormal . SQUAMOUS EPITHELIAL <5 See_Comment [Automa josé luis (test code = 67753-4) quintin e] The system which generated this result transmitted reference range : /HPF. The reference range was not used to interpret this result as normal/abnormal . Specimen Source (test code = 2795) Lab Interpretation Abnormal (test code = 37293-0) [facility]/ [id number] 10:57:00 Test Item Value Reference Range Interpretation [...] pg/mL 0-100 H (test code = 700) Electric Razor Mechanic ID - [id number], RENAL, KPBQIKQS4909-81-24 08:56:00Reason for exam:- >[facility] CKDST[facility]: [facility] FOR[facility] : 1975 [...] MDReport Verified Date/Time: 04/03/2020 08:56:12 Reading Location: [facility] Radiology Reading Room CT, EXTREMITY, LOWER WITHOUT CONTRAST, [id number] 08:50:00Unlisted Reason for Exam - Click Yes and Enter Reason Below->YesL Foot woundUnlisted Reason for Exam->L Foot infection to r/o osteomyelitisPlease specify:->Foot [facility] : 1975 [...] clinical concern, consider MRI correlation. Signed: [facility] Verified Date/Time: 04/03/2020 08:50:03 Reading Location: [facility] B1 C013X Ortho Consult Reading Room CT lower extremity without IV contrast [id number] 08:50:00Interface, External Ris In - 04/03/2020 8:52 [...] Gonzales Verified Date/Time: 04/03/2020 08:50:03 Reading Location: [facility] C013X [facility] [id number] 08:50:00 Interface, External Ris In - 04/03/2020 [...] Gonzalesort Verified Date/Time: 04/03/2020 08:50:03 Reading Location: [address] [facility] [id number] 08:50:00Interface, External Ris In - 04/03/2020 8:52 [...] MDReport Verified Date/Time: 04/03/2020 08:50:03 Reading Location: [facility] C013X [facility] [id number] 08:50:00Interface, External Ris In - 04/03/2020 8:52 [...] Gonzales Verified Date/Time: 04/03/2020 08:50:03 Reading Location: [facility] B1 C013X Ortho Consult [facility] POCT-GLUCOSE [id number] 07:39:00 Test Item Value Reference Range Interpretation Comments POC-GLUCOSE METER 178 mg/dL 70-110 H : TESTED A T SLSL 1317 (BEAKER) (test code [address], = 1538) [facility] 77 478: Electric Razor Mechanic/Techni cornelia ID = [id number] for Tiff Roach BASIC METABOLIC [id number] 06:16:00 Test Item Value Reference Range Interpretation [...] S NOT APPLICABLE FOR DIALYSIS PATIEN TS. Electric Razor Mechanic ID - LITOOperator ID - LITOOperator ID - LITOOperator ID - LITOOperator ID - LITOOperator ID - LITOOperator ID - LITOOperator ID - LITOOperator ID - LITOOperator ID - LITOOperator ID - LITOOperator ID - LITOOperator ID - LITOCBC (Hemogram only)2020-04-03 05:47:00 Test Item Value Reference Range Interpretation Comments WBC (test code = 6690-2) 8.9 See_Comment [A utomated message] The system [employer] generated this result transmitted ref erence range: 4.0 - 10 .0 K/L. The refe rence range was not u sed to interpret this result as normal/abnor mal. RBC (test code = 789-8) 3.59 See_Comment L [Au tomated message] The system [employer] generated this result transmitted ref erence range: 4.20 - 5 .80 M/L. The refe rence range was not u sed to interpret this result as normal/abnor mal. MCHC (test code = 786-4) 32.4 See_Comment L [A utomated message] The system [employer] generated this result transmitted ref erence range: [...] See_Comment [Aut omated message] 777-3) The system [employer] generated this result transmitted ref erence range: 150 - 43 0 K/CU MM. The referen ce range was not u sed to interpret this result as normal/abnor mal. MPV (test code = 11.7 fL 6-11.5 H 61847-0) nRBC (test code = 413) 0 See_Comment [Aut omated message] The system [employer] generated this result transmitted ref erence range: 0 - 0 /1 00 WBC. The refere nce range was not u sed to interpret this result as normal/abnor mal. Lab Interpretation (test Abnormal code = 53987-4) [facility]2020-04-03 05:47:00 Test Item Value Reference Range Interpretation Comments WBC (test code = 6690-2) 8.9 See_Comment [A utomated message] The system [employer] generated this result transmitted ref erence range: 4.0 - 10 .0 K/L. The refe rence range was not u sed to interpret this result as normal/abnor mal. RBC (test code = 789-8) 3.59 See_Comment L [Au tomated message] The system [employer] generated this result transmitted ref erence range: 4.20 - 5 .80 M/L. The refe rence range was not u sed to interpret this result as normal/abnor mal. MCHC (test code = 786-4) 32.4 See_Comment L [A utomated message] The system [employer] generated this result transmitted ref erence range: [...] See_Comment [Aut omated message] 777-3) The system [employer] generated this result transmitted ref erence range: 150 - 43 0 K/CU MM. The referen ce range was not u sed to interpret this result as normal/abnor mal. MPV (test code = 11.7 fL 6-11.5 H 11675-3) nRBC (test code = 413) 0 See_Comment [Aut omated message] The system [employer] generated this result transmitted ref erence range: 0 - 0 /1 00 WBC. The refere nce range was not u sed to interpret this result as normal/abnor mal. Lab Interpretation (test Abnormal code = 97855-7) [facility] (Hemogram only)2020-04-03 05:47:00 Test Item Value Reference Range Interpretation Comments WBC (test code = 6690-2) 8.9 See_Comment [A utomated message] The system [employer] generated this result transmitted ref erence range: 4.0 - 10 .0 K/L. The refe rence range was not u sed to interpret this result as normal/abnor mal. RBC (test code = 789-8) 3.59 See_Comment L [Au tomated message] The system [employer] generated this result transmitted ref erence range: 4.20 - 5 .80 M/L. The refe rence range was not u sed to interpret this result as normal/abnor mal. MCHC (test code = 786-4) 32.4 See_Comment L [A utomated message] The system [employer] generated this result transmitted ref erence range: [...] See_Comment [Aut omated message] 777-3) The system [employer] generated this result transmitted ref erence range: 150 - 43 0 K/CU MM. The referen ce range was not u sed to interpret this result as normal/abnor mal. MPV (test code = 11.7 fL 6-11.5 H 22459-3) nRBC (test code = 413) 0 See_Comment [Aut omated message] The system [employer] generated this result transmitted ref erence range: 0 - 0 /1 00 WBC. The refere nce range was not u sed to interpret this result as normal/abnor mal. Lab Interpretation (test Abnormal code = 49315-8) [facility] (Hemogram only)2020-04-03 05:47:00 Test Item Value Reference Range Interpretation Comments WBC (test code = 6690-2) 8.9 See_Comment [A utomated message] The system [employer] generated this result transmitted ref erence range: 4.0 - 10 .0 K/L. The refe rence range was not u sed to interpret this result as normal/abnor mal. RBC (test code = 789-8) 3.59 See_Comment L [Au tomated message] The system [employer] generated this result transmitted ref erence range: 4.20 - 5 .80 M/L. The refe rence range was not u sed to interpret this result as normal/abnor mal. MCHC (test code = 786-4) 32.4 See_Comment L [A utomated message] The system [employer] generated this result transmitted ref erence range: [...] See_Comment [Aut omated message] 777-3) The system [employer] generated this result transmitted ref erence range: 150 - 43 0 K/CU MM. The referen ce range was not u sed to interpret this result as normal/abnor mal. MPV (test code = 11.7 fL 6-11.5 H 13318-5) nRBC (test code = 413) 0 See_Comment [Aut omated message] The system [employer] generated this result transmitted ref erence range: 0 - 0 /1 00 WBC. The refere nce range was not u sed to interpret this result as normal/abnor mal. Lab Interpretation (test Abnormal code = 22004-2) [facility] (Hemogram only)2020-04-03 05:47:00 Test Item Value Reference Range Interpretation Comments WBC (test code = 6690-2) 8.9 See_Comment [A utomated message] The system [employer] generated this result transmitted ref erence range: 4.0 - 10 .0 K/L. The refe rence range was not u sed to interpret this result as normal/abnor mal. RBC (test code = 789-8) 3.59 See_Comment L [Au tomated message] The system [employer] generated this result transmitted ref erence range: 4.20 - 5 .80 M/L. The refe rence range was not u sed to interpret this result as normal/abnor mal. MCHC (test code = 786-4) 32.4 See_Comment L [A utomated message] The system [employer] generated this result transmitted ref erence range: [...] See_Comment [Aut omated message] 777-3) The system [employer] generated this result transmitted ref erence range: 150 - 43 0 K/CU MM. The referen ce range was not u sed to interpret this result as normal/abnor mal. MPV (test code = 11.7 fL 6.0-11.5 H 49755-7) nRBC (test code = 413) 0 See_Comment [Aut omated message] The system [employer] generated this result transmitted ref erence range: 0 - 0 /1 00 WBC. The refere nce range was not u sed to interpret this result as normal/abnor mal. Lab Interpretation (test Abnormal code = 30393-7) [facility] (Hemogram only)2020-04-03 05:47:00 Test Item Value Reference Range Interpretation Comments WBC (test code = 6690-2) 8.9 See_Comment [A utomated message] The system [employer] generated this result transmitted ref erence range: 4.0 - 10 .0 K/L. The refe rence range was not u sed to interpret this result as normal/abnor mal. RBC (test code = 789-8) 3.59 See_Comment L [Au tomated message] The system [employer] generated this result transmitted ref erence range: 4.20 - 5 .80 M/L. The refe rence range was not u sed to interpret this result as normal/abnor mal. MCHC (test code = 786-4) 32.4 See_Comment L [A utomated message] The system [employer] generated this result transmitted ref erence range: [...] See_Comment [Aut omated message] 777-3) The system [employer] generated this result transmitted ref erence range: 150 - 43 0 K/CU MM. The referen ce range was not u sed to interpret this result as normal/abnor mal. MPV (test code = 11.7 fL 6.0-11.5 H 07745-6) nRBC (test code = 413) 0 See_Comment [Aut omated message] The system [employer] generated this result transmitted ref erence range: 0 - 0 /1 00 WBC. The refere nce range was not u sed to interpret this result as normal/abnor mal. Lab Interpretation (test Abnormal code = 13614-9) [facility] (Hemogram only)2020-04-03 05:47:00 Test Item Value Reference Range Interpretation Comments WBC (test code = 6690-2) 8.9 See_Comment [A utomated message] The system [employer] generated this result transmitted ref erence range: 4.0 - 10 .0 K/L. The refe rence range was not u sed to interpret this result as normal/abnor mal. RBC (test code = 789-8) 3.59 See_Comment L [Au tomated message] The system [employer] generated this result transmitted ref erence range: 4.20 - 5 .80 M/L. The refe rence range was not u sed to interpret this result as normal/abnor mal. MCHC (test code = 786-4) 32.4 See_Comment L [A utomated message] The system [employer] generated this result transmitted ref erence range: [...] See_Comment [Aut omated message] 777-3) The system [employer] generated this result transmitted ref erence range: 150 - 43 0 K/CU MM. The referen ce range was not u sed to interpret this result as normal/abnor mal. MPV (test code = 11.7 fL 6.0-11.5 H 37090-5) nRBC (test code = 413) 0 See_Comment [Aut omated message] The system [employer] generated this result transmitted ref erence range: 0 - 0 /1 00 WBC. The refere nce range was not u sed to interpret this result as normal/abnor mal. Lab Interpretation (test Abnormal code = 55032-4) [facility] (HEMOGRAM ONLY)2020-04-03 05:47:00 Test Item Value Reference [...] (BEAKER) (test code = 413) VANCOMYCIN LEVEL, [id number] 22:37:00 Test Item Value Reference Range Interpretation Comments VANCOMYCIN TROUGH ([facility]) (test 18.7 ug/mL 10.0-20.0 code = 522) [employer] ID - JUSTINPOCT-GLUCOSE [id number] 21:28:00 Test Item Value Reference Range Interpretation Comments POC-GLUCOSE METER 234 mg/dL 70-110 H : TESTED A T [facility] [address] (BEAKER) (test code [facility], = 1538) [place] [id number]: Electric Razor Mechanic/Techni cornelia ID = [id number] for Heidy Barrow POCT-GLUCOSE [id number] 16:03:00 Test Item Value Reference Range Interpretation Comments POC-GLUCOSE METER 262 mg/dL 70-110 H : TESTED A T [facility] [address] (BEAKER) (test code [facility], = 1538) [place] [id number]: Electric Razor Mechanic/Techni cornelia ID = [id number] for Buff ord, Jesi POCT-GLUCOSE [id number] 11:56:00 Test Item Value Reference Range Interpretation Comments POC-GLUCOSE METER 190 mg/dL 70-110 H : TESTED A T [facility] [address] (BEAKER) ([facility] = [facility] [place] [id number]: Electric Razor Mechanic/Techni cornelia ID = [id number] for Buff ord, Jesi BASIC METABOLIC [id number] 06:58:00 Test Item Value Reference Range Interpretation [...] S NOT APPLICABLE FOR DIALYSIS PATIEN TS. Electric [employer]ic ID - [id number] ID - [id number] ID - yksv87Dfkyrxwk ID - sgiw53Xeedjqpw ID - dhgz88Zcmrpsmf ID - zzjq09Ttjofymk ID - fknf03Xyjfdsuq ID - wseg77Hekqavhb ID - tmuk92Jdmsiksr ID - zmob47Tywkvoqi ID - kgot58Hucoqbns ID - [id number] ID - [id number] (HEMOGRAM ONLY)2020-04-02 06:43:00 Test Item Value Reference [...] 0-0 (BEAKER) (test code = 413) POCT-GLUCOSE [id number] 16:21:00 Test Item Value Reference Range Interpretation Comments POC-GLUCOSE METER 262 mg/dL 70-110 H : TESTED A T [address] (BEAKER) (test code [address], = 1538) [place] [address]: Electric Razor Mechanic/Techni cornelia ID = [id number] for Brandon alejandra, Jesi POCT-GLUCOSE [id number] 13:00:00 Test Item Value Reference Range Interpretation Comments POC-GLUCOSE METER 256 mg/dL 70-110 H : TESTED A T [address] (BEAKER) (test code [address], = 1538) [place] [address]: Electric Razor Mechanic/Techni cornelia ID = [id number] for Palm er, Ealine POCT-GLUCOSE [id number] 11:49:00 Test Item Value Reference Range Interpretation Comments POC-GLUCOSE METER 255 mg/dL 70-110 H : TESTED A T [address] (BEAKER) (test code [address], = 1538) [place] [address]: Electric Razor Mechanic/Techni cornelia ID = [id number] for Crystal savanah Karina POCT-GLUCOSE [id number] 07:53:00 Test Item Value Reference Range Interpretation Comments POC-GLUCOSE METER 296 mg/dL 70-110 H : TESTED A T [address] (BEAKER) (test code [address], = 1538) [place] [address]: Electric Razor Mechanic/Techni cornelia ID = [id number] for Jesi Espinal BASIC METABOLIC [id number] 06:06:00 Test Item Value Reference Range Interpretation [...] S NOT APPLICABLE FOR DIALYSIS PATIEN TS. Electric [employer] Mechanic ID - ANSBERTOGOperator ID - ANSBERTOGOperator ID - ANSBERTOGOperator ID - ANSBERTOGOperatorID - ANSBERTOGOperator ID - ANSBERTOGOperator ID - ANSBERTOGOperator ID - ANSBERTOGOperator ID - ANSBERTOGOperator ID - ANSBERTOGOperator ID - ANSBERTOGOperator ID - ANSBERTOGOperator ID - ANSBERTOG POCT-GLUCOSE [id number] 20:54:00 Test Item Value Reference Range Interpretation Comments POC-GLUCOSE METER 252 mg/dL 70-110 H : TESTED A T [address] (BEAKER) (test code [address], = 1538) [facility] [address]: Electric Razor Mechanic/Techni cornelia ID = [id number] for gordon Whitehead POCT-GLUCOSE [id number] 15:59:00 Test Item Value Reference Range Interpretation Comments POC-GLUCOSE METER 335 mg/dL 70-110 H : TESTED A T [address] (BEAKER) (test code [address], = 1538) [facility] [address]: Electric Razor Mechanic/Techni cornelia ID = [id number] for Tiff Roach POCT-GLUCOSE [id number] 15:24:00 Test Item Value Reference Range Interpretation Comments POC-GLUCOSE METER 356 mg/dL 70-110 H : TESTED A T [address] (BEAKER) (test code [address], = 1538) [place] [address]: Electric Razor Mechanic/Techni cornelia ID = [id number] for Tiff Roach POCT-GLUCOSE [id number] 07:46:00 Test Item Value Reference Range Interpretation Comments POC-GLUCOSE METER 281 mg/dL 70-110 H : TESTED A T [address] (BEAKER) (test code [address], = 1538) [place] [address]: Electric Razor Mechanic/Techni cornelia ID = [id number] for Tiff Roach Hemoglobin [id number] 06:09:00 Test Item Value Reference Range Interpretation Comments Hemoglobin A1C (test code 12.3 % 4.3-6.1 H = 4548-4) 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 ID - [id number] Lab Interpretation (test Abnormal code = 18932-0) [id number]:09:00 Test Item Value Reference Range Interpretation Comments Hemoglobin A1C (test code 12.3 % 4.3-6.1 H = 4548-4) 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 ID - [id number] Lab Interpretation (test Abnormal code = 55504-3) [facility] [id number] 06:09:00 Test Item Value Reference Range Interpretation Comments Hemoglobin A1C (test code 12.3 % 4.3-6.1 H = 4548-4) 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 ID - [id number] Lab Interpretation (test Abnormal code = 18844-3) [facility] [id number] 06:09:00 Test Item Value Reference Range Interpretation Comments Hemoglobin A1C (test code 12.3 % 4.3-6.1 H = 4548-4) 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 ID - [id number] Lab Interpretation (test Abnormal code = 33748-6) [facility] [id number] 06:09:00 Test Item Value Reference Range Interpretation Comments Hemoglobin A1C (test code 12.3 % 4.3-6.1 H = 4548-4) 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 ID - [id number] Lab Interpretation (test Abnormal code = 56061-4) [facility] [id number] 06:09:00 Test Item Value Reference Range Interpretation Comments Hemoglobin A1C (test code 12.3 % 4.3-6.1 H = 4548-4) 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 ID - [id number] Lab Interpretation (test Abnormal code = 26472-6) [facility] [id number] 06:09:00 Test Item Value Reference Range Interpretation Comments Hemoglobin A1C (test code 12.3 % 4.3-6.1 H = 4548-4) 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 ID - [id number] Lab Interpretation (test Abnormal code = 79510-3) [facility] [id number] 06:09:00 Test Item Value Reference Range Interpretation Comments HEMOGLOBIN A1C (BEAKER) (test code = 12.3 % 4.3-6.1 H 368) Electric Razor Mechanic ID - JBERNBASIC METABOLIC [id number] 06:04:00 Test Item Value Reference Range Interpretation [...] S NOT APPLICABLE FOR DIALYSIS PATIEN TS. Electric Razor Mechanic ID - ANSBERTOGOperator ID - ANSBERTOGOperator ID - ANSBERTOGOperator ID - ANSBERTOGOperatorID - ANSBERTOGOperator ID - ANSBERTOGOperator ID - ANSBERTOGOperator ID - ANSBERTOGOperator ID - ANSBERTOGOperator ID - ANSBERTOGOperator ID - ANSBERTOGOperator ID - ANSBERTOGOperator ID - ANSBERTOG CBC W/PLT COUNT & AUTO [id number] 05:38:00 Test Item Value Reference Range Interpretation [...] = 2801) CBC W/PLT COUNT & AUTO [id number] 22:16:00 Test Item Value Reference Range Interpretation [...] PERCENT (BEAKER) (test code = 2801) POCT-GLUCOSE [id number] 22:12:00 Test Item Value Reference Range Interpretation Comments POC-GLUCOSE METER 396 mg/dL 70-110 H : TESTED A T [facility] [address] (BEAKER) (test code [facility] [address], = 1538) [facility] [address]: Electric Razor Mechanic/Techni cornelia ID = [id number] for Malicknu siem, gordon RAD, FOOT, MIN 3 VIEWS, [id number] 21:39:00Reason for exam:->L foot [facility] : 1975 [...] MDReport Verified Date/Time: 03/30/2020 21:39:00 BASIC METABOLIC [id number] 21:34:00 Test Item Value Reference Range Interpretation [...] S NOT APPLICABLE FOR DIALYSIS PATIEN TS. Electric Razor Mechanic ID - JBERNOperator ID - JBERNOperator ID - JBERNOperator ID - JBERNOperator ID - JBERNOperator ID - JBERNOperator ID - JBERNOperator ID - JBERNOperator ID - JBERNOperator ID - JBERNOperator ID- JBERNOperator ID - JBERNOperator ID - JBERNSARS-COV2/RT-PCR ([facility])2020-03-30 21:04:00 Test Item Value Reference Range Interpretation Comments SARS-COV2/RT-PCR Negative Not Detected, (test code = 6688511) Negative, See external report for linked test SARS-COV-2 PERFORMING Perfor med @ [facility] (test code = 9858640) BLOOD [id number] 04:00:00 Test Item Value Reference Range Interpretation Comments CULTURE (BEAKER) (test No growth in 5 days code = 1095) BLOOD [id number] 04:00:00 Test Item Value Reference Range Interpretation Comments CULTURE (BEAKER) (test No growth in 5 days code = 1095) BASIC METABOLIC [id number] 01:36:00 Test Item Value Reference Range Interpretation [...] S NOT APPLICABLE FOR DIALYSIS PATIEN TS. Electric Razor Mechanic ID - [id number] ID - zbes73Fdmczsde ID - loob76Qsfehkvm ID - izcn80Mbgdxnht ID - bgkn37Yvudapwl ID - iaez25Otpqvhln ID - srev01Tphujrzz ID - ojym43Ehxvkxdu ID - hboe92Bgmzjplk ID - karb05Keuaihjt ID - yvpw61Mincaflx ID - ftlg76Vdygndcw ID - ccuh82N-Tsjpyofv [id number] 01:34:00 Test Item Value Reference Range Interpretation Comments CRP (test code = 676) 0.66 mg/dL 0-0.5 H 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 ID - [id number] Lab Interpretation (test Abnormal code = 75883-9) [facility] [id number] 01:34:00 Test Item Value Reference Range Interpretation Comments CRP (test code = 676) 0.66 mg/dL 0-0.5 H 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 ID - [id number] Lab Interpretation (test Abnormal code = 94779-8) [facility] [id number] 01:34:00 Test Item Value Reference Range Interpretation Comments CRP (test code = 676) 0.66 mg/dL 0-0.5 H 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 ID - [id number] Lab Interpretation (test Abnormal code = 27124-3) [facility] [id number] 01:34:00 Test Item Value Reference Range Interpretation Comments CRP (test code = 676) 0.66 mg/dL 0-0.5 H 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 ID - [id number] Lab Interpretation (test Abnormal code = 96106-6) [facility] [id number] 01:34:00 Test Item Value Reference Range Interpretation Comments CRP (test code = 676) 0.66 mg/dL 0.00-0.50 H 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 ID - [id number] Lab Interpretation (test Abnormal code = 81090-2) [facility] [id number] 01:34:00 Test Item Value Reference Range Interpretation Comments CRP (test code = 676) 0.66 mg/dL 0.00-0.50 H 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 ID - [id number] Lab Interpretation (test Abnormal code = 79462-5) [facility] [id number] 01:34:00 Test Item Value Reference Range Interpretation Comments CRP (test code = 676) 0.66 mg/dL 0.00-0.50 H 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 ID - [id number] Lab Interpretation (test Abnormal code = 88797-0) [facility] [id number] 01:34:00 Test Item Value Reference Range Interpretation Comments C-REACTIVE PROTEIN (BEAKER) (test 0.66 mg/dL 0.00-0.50 H code = 676) Electric Razor Mechanic ID - [id number] ACID, [id number] 01:33:00 Test Item Value Reference Range Interpretation Comments LACTATE BLOOD VENOUS (2) (BEAKER) 1.75 mmol/L 0.50-<2.00 (test code = 2872) Electric Razor Mechanic ID - [id number] ID - mmlp87Pothwvyh ID - njay08Zfzwavlz ID - [id number] CBC W/PLT COUNT & AUTO [id number] 01:21:00 Test Item Value Reference Range Interpretation [...] = 2801) RAD, FOOT, MIN 3 VIEWS, [id number] 00:51:00Reason for exam:[facility] 1975 [...] 03/20/2020 00:51:45 Panel Description: Hemoglobin A1c/Hemoglobin.total in [id number] 11:40:00 Test Item Value Reference Range Interpretation Comments Hemoglobin A1c (test code 13.1 % 4.8-5.6 H = 4548-4) . Prediabetes: 5. 7 - 6.4 Diabete s: >6.4 Glycemi c control for niall lts with diabetes: <7.0

P erforme d by:
[facility] [place] ([place])

[facility] Description: Hemoglobin A1c/Hemoglobin.total in Blood 2020-03-07 11:40:00 Test Item Value Reference Range Interpretation Comments Hemoglobin A1c (test code 13.1 % 4.8-5.6 H = 4548-4) . Prediabetes: 5. 7 - 6.4 Diabete s: >6.4 Glycemi c control for nilal lts with diabetes: <7.0

P erforme d by:
[facility] [place] ([place])

[facility] Description: Hemoglobin A1c/Hemoglobin.total in Blood 2020-03-07 11:40:00 Test Item Value Reference Range Interpretation Comments Hemoglobin A1c (test code 13.1 % 4.8-5.6 H = 4548-4) . Prediabetes: 5. 7 - 6.4 Diabete s: >6.4 Glycemi c control for niall lts with diabetes: <7.0

P erforme d by:
[facility] [place] ([place])

[facility] Description: Hemoglobin A1c/Hemoglobin.total in Blood 2020-03-07 11:40:00 Test Item Value Reference Range Interpretation Comments Hemoglobin A1c (test code 13.1 % 4.8-5.6 H = 4548-4) . Prediabetes: 5. 7 - 6.4 Diabete s: >6.4 Glycemi c control for niall lts with diabetes: <7.0

P erforme d by:
[facility] [place] ([place])

[facility] Description: Hemoglobin A1c/Hemoglobin.total in Blood 2020-03-07 11:40:00 Test Item Value Reference Range Interpretation Comments Hemoglobin A1c (test code 13.1 % 4.8-5.6 H = 4548-4) . Prediabetes: 5. 7 - 6.4 Diabete s: >6.4 Glycemi c control for niall lts with diabetes: <7.0

P erforme d by:
[facility] [place] ([place])

[facility] Description: Hemoglobin A1c/Hemoglobin.total in Blood 2020-03-07 11:40:00 Test Item Value Reference Range Interpretation Comments Hemoglobin A1c (test code 13.1 % 4.8-5.6 H = 4548-4) . Prediabetes: 5. 7 - 6.4 Diabete s: >6.4 Glycemi c control for niall lts with diabetes: <7.0

P erforme d by:
[facility] [place] ([place])

[facility] Description: Hemoglobin A1c/Hemoglobin.total in Blood 2020-03-07 11:40:00 Test Item Value Reference Range Interpretation Comments Hemoglobin A1c (test code 13.1 % 4.8-5.6 H = 4548-4) . Prediabetes: 5. 7 - 6.4 Diabete s: >6.4 Glycemi c control for niall lts with diabetes: <7.0

P erforme d by:
[facility] [place] ([place])

[facility] Description: Hemoglobin A1c/Hemoglobin.total in Blood 2020-03-07 11:40:00 Test Item Value Reference Range Interpretation Comments Hemoglobin A1c (test code 13.1 % 4.8-5.6 H = 4548-4) . Prediabetes: 5. 7 - 6.4 Diabete s: >6.4 Glycemi c control for niall lts with diabetes: <7.0

P erforme d by:
[facility] [place] ([place])

[facility] Description: Hemoglobin A1c/Hemoglobin.total in Blood 2020-03-07 11:40:00 Test Item Value Reference Range Interpretation Comments Hemoglobin A1c (test code 13.1 % 4.8-5.6 H = 4548-4) . Prediabetes: 5. 7 - 6.4 Diabete s: >6.4 Glycemi c control for niall lts with diabetes: <7.0

P erforme d by:
[facility] [place] ([place])

[facility] Description: Hemoglobin A1c/Hemoglobin.total in Blood 2020-03-07 11:40:00 Test Item Value Reference Range Interpretation Comments Hemoglobin A1c (test code 13.1 % 4.8-5.6 H = 4548-4) . Prediabetes: 5. 7 - 6.4 Diabete s: >6.4 Glycemi c control for niall lts with diabetes: <7.0

P erforme d by:
[facility] [place] ([place])

[facility] Description: Hemoglobin A1c/Hemoglobin.total in Blood 2020-03-07 11:40:00 Test Item Value Reference Range Interpretation Comments Hemoglobin A1c (test code 13.1 % 4.8-5.6 H = 4548-4) . Prediabetes: 5. 7 - 6.4 Diabete s: >6.4 Glycemi c control for niall lts with diabetes: <7.0

P erforme d by:
[facility] [place] ([place])

[facility] Description: Hemoglobin A1c/Hemoglobin.total in Blood 2020-03-07 11:40:00 Test Item Value Reference Range Interpretation Comments Hemoglobin A1c (test code 13.1 % 4.8-5.6 H = 4548-4) . Prediabetes: 5. 7 - 6.4 Diabete s: >6.4 Glycemi c control for niall lts with diabetes: <7.0

P erforme d by:
[facility] [place] ([place])

[facility] Description: Hemoglobin A1c/Hemoglobin.total in Blood 2020-03-07 11:40:00 Test Item Value Reference Range Interpretation Comments Hemoglobin A1c (test code 13.1 % 4.8-5.6 H = 4548-4) . Prediabetes: 5. 7 - 6.4 Diabete s: >6.4 Glycemi c control for niall lts with diabetes: <7.0

P erforme d by:
[facility] [place] ([place])

[facility] Description: Hemoglobin A1c/Hemoglobin.total in Blood 2020-03-07 11:40:00 Test Item Value Reference Range Interpretation Comments Hemoglobin A1c (test code 13.1 % 4.8-5.6 H = 4548-4) . Prediabetes: 5. 7 - 6.4 Diabete s: >6.4 Glycemi c control for niall lts with diabetes: <7.0

P erforme d by:
[facility] [place] ([place])

[facility] Description: Hemoglobin A1c/Hemoglobin.total in Blood 2020-03-07 11:40:00 Test Item Value Reference Range Interpretation Comments Hemoglobin A1c (test code 13.1 % 4.8-5.6 H = 4548-4) . Prediabetes: 5. 7 - 6.4 Diabete s: >6.4 Glycemi c control for niall lts with diabetes: <7.0

P erforme d by:
[facility] [place] ([place])

[facility] Description: Hemoglobin A1c/Hemoglobin.total in Blood 2020-03-07 11:40:00 Test Item Value Reference Range Interpretation Comments Hemoglobin A1c (test code 13.1 % 4.8-5.6 H = 4548-4) . Prediabetes: 5. 7 - 6.4 Diabete s: >6.4 Glycemi c control for niall lts with diabetes: <7.0

P erforme d by:
[facility] [place] ([place])

[facility] Description: Hemoglobin A1c/Hemoglobin.total in Blood 2020-03-07 11:40:00 Test Item Value Reference Range Interpretation Comments Hemoglobin A1c (test code 13.1 % 4.8-5.6 H = 4548-4) . Prediabetes: 5. 7 - 6.4 Diabete s: >6.4 Glycemi c control for niall lts with diabetes: <7.0

P erforme d by:
[facility] [place] ([place])

[facility] Description: Hemoglobin A1c/Hemoglobin.total in Blood 2020-03-07 11:40:00 Test Item Value Reference Range Interpretation Comments Hemoglobin A1c (test code 13.1 % 4.8-5.6 H = 4548-4) . Prediabetes: 5. 7 - 6.4 Diabete s: >6.4 Glycemi c control for niall lts with diabetes: <7.0

P erforme d by:
[facility] [place] ([place])

[facility] Description: Hemoglobin A1c/Hemoglobin.total in Blood 2020-03-07 11:40:00 Test Item Value Reference Range Interpretation Comments Hemoglobin A1c (test code 13.1 % 4.8-5.6 H = 4548-4) . Prediabetes: 5. 7 - 6.4 Diabete s: >6.4 Glycemi c control for niall lts with diabetes: <7.0

P erforme d by:
[facility] [place] ([place])

[facility] Description: Hemoglobin A1c/Hemoglobin.total in Blood 2020-03-07 11:40:00 Test Item Value Reference Range Interpretation Comments Hemoglobin A1c (test code 13.1 % 4.8-5.6 H = 4548-4) . Prediabetes: 5. 7 - 6.4 Diabete s: >6.4 Glycemi c control for niall lts with diabetes: <7.0

P erforme d by:
[facility] [place] ([place])

[facility] Description: Hemoglobin A1c/Hemoglobin.total in Blood 2020-03-07 11:40:00 Test Item Value Reference Range Interpretation Comments Hemoglobin A1c (test code 13.1 % 4.8-5.6 H = 4548-4) . Prediabetes: 5. 7 - 6.4 Diabete s: >6.4 Glycemi c control for niall lts with diabetes: <7.0

P erforme d by:
[facility] [place] ([place])

[facility] Description: Hemoglobin A1c/Hemoglobin.total in Blood 2020-03-07 11:40:00 Test Item Value Reference Range Interpretation Comments Hemoglobin A1c (test code 13.1 % 4.8-5.6 H = 4548-4) . Prediabetes: 5. 7 - 6.4 Diabete s: >6.4 Glycemi c control for niall lts with diabetes: <7.0

P erforme d by:
[facility] [place] ([place])

[facility] Description: Hemoglobin A1c/Hemoglobin.total in Blood 2020-03-07 11:40:00 Test Item Value Reference Range Interpretation Comments Hemoglobin A1c (test code 13.1 % 4.8-5.6 H = 4548-4) . Prediabetes: 5. 7 - 6.4 Diabete s: >6.4 Glycemi c control for niall lts with diabetes: <7.0

P erforme d by:
[facility] [place] ([place])

[facility] Description: Hemoglobin A1c/Hemoglobin.total in Blood 2020-03-07 11:40:00 Test Item Value Reference Range Interpretation Comments Hemoglobin A1c (test code 13.1 % 4.8-5.6 H = 4548-4) . Prediabetes: 5. 7 - 6.4 Diabete s: >6.4 Glycemi c control for niall lts with diabetes: <7.0

P erforme d by:
[facility] [place] ([place])

[facility] Description: Hemoglobin A1c/Hemoglobin.total in Blood 2020-03-07 11:40:00 Test Item Value Reference Range Interpretation Comments Hemoglobin A1c (test code 13.1 % 4.8-5.6 H = 4548-4) . Prediabetes: 5. 7 - 6.4 Diabete s: >6.4 Glycemi c control for niall lts with diabetes: <7.0

P erforme d by:
[facility] ([place])

[facility] Description: Hemoglobin A1c/Hemoglobin.total in Blood 2020-03-07 11:40:00 Test Item Value Reference Range Interpretation Comments Hemoglobin A1c (test code 13.1 % 4.8-5.6 H = 4548-4) . Prediabetes: 5. 7 - 6.4 Diabete s: >6.4 Glycemi c control for niall lts with diabetes: <7.0

P erforme d by:
[facility] ([place])

[facility] Description: Lipid [id number] 08:03:00 Test Item Value Reference Range Interpretation Comments Cholesterol, Total (test code = 209 mg/dL 100-199 H 2093-3) Triglycerides (test code = 2571-8) 172 mg/dL 0-149 H HDL Cholesterol (test code = 29 mg/dL >39 L 5-9) VLDL Cholesterol Renuka (test code = 32 mg/dL 5-40 52216-8) LDL Chol Calc (NIH) (test code = 148 mg/dL 0-99 H 27417-0) Comment: (test code = 83778-7) [facility] Description: Lipid [id number] 08:03:00 Test Item Value Reference Range Interpretation Comments Cholesterol, Total (test code = 209 mg/dL 100-199 H 2093-3) Triglycerides (test code = 2571-8) 172 mg/dL 0-149 H HDL Cholesterol (test code = 29 mg/dL >39 L 5-9) VLDL Cholesterol Renuka (test code = 32 mg/dL 5-40 41229-5) LDL Chol Calc (NIH) (test code = 148 mg/dL 0-99 H 84937-2) Comment: (test code = 21834-0) [facility] Description: Lipid [id number] 08:03:00 Test Item Value Reference Range Interpretation Comments Cholesterol, Total (test code = 209 mg/dL 100-199 H 2093-3) Triglycerides (test code = 2571-8) 172 mg/dL 0-149 H HDL Cholesterol (test code = 29 mg/dL >39 L 2085-9) VLDL Cholesterol Renuka (test code = 32 mg/dL 5-40 72239-2) LDL Chol Calc (NIH) (test code = 148 mg/dL 0-99 H 93927-7) Comment: (test code = 70760-0) [facility] Description: Lipid [id number] 08:03:00 Test Item Value Reference Range Interpretation Comments Cholesterol, Total (test code = 209 mg/dL 100-199 H 2093-3) Triglycerides (test code = 2571-8) 172 mg/dL 0-149 H HDL Cholesterol (test code = 29 mg/dL >39 L 2085-9) VLDL Cholesterol Renuka (test code = 32 mg/dL 5-40 14970-0) LDL Chol Calc (NIH) (test code = 148 mg/dL 0-99 H 34888-0) Comment: (test code = 40820-1) [facility] Description: Lipid [id number] 08:03:00 Test Item Value Reference Range Interpretation Comments Cholesterol, Total (test code = 209 mg/dL 100-199 H 2093-3) Triglycerides (test code = 2571-8) 172 mg/dL 0-149 H HDL Cholesterol (test code = 29 mg/dL >39 L 2085-9) VLDL Cholesterol Renuka (test code = 32 mg/dL 5-40 44990-6) LDL Chol Calc (NIH) (test code = 148 mg/dL 0-99 H 01127-2) Comment: (test code = 88820-6) [facility] Description: Lipid [id number] 08:03:00 Test Item Value Reference Range Interpretation Comments Cholesterol, Total (test code = 209 mg/dL 100-199 H 2093-3) Triglycerides (test code = 2571-8) 172 mg/dL 0-149 H HDL Cholesterol (test code = 29 mg/dL >39 L 2085-9) VLDL Cholesterol Renuka (test code = 32 mg/dL 5-40 66367-7) LDL Chol Calc (NIH) (test code = 148 mg/dL 0-99 H 17817-7) Comment: (test code = 43818-5) [facility] Description: Lipid [id number] 08:03:00 Test Item Value Reference Range Interpretation Comments Cholesterol, Total (test code = 209 mg/dL 100-199 H 2093-3) Triglycerides (test code = 2571-8) 172 mg/dL 0-149 H HDL Cholesterol (test code = 29 mg/dL >39 L 2085-9) VLDL Cholesterol Renuka (test code = 32 mg/dL 5-40 74444-2) LDL Chol Calc (NIH) (test code = 148 mg/dL 0-99 H 23418-6) Comment: (test code = 71752-2) [facility] Description: Lipid [id number] 08:03:00 Test Item Value Reference Range Interpretation Comments Cholesterol, Total (test code = 209 mg/dL 100-199 H 2093-3) Triglycerides (test code = 2571-8) 172 mg/dL 0-149 H HDL Cholesterol (test code = 29 mg/dL >39 L 5-9) VLDL Cholesterol Renuka (test code = 32 mg/dL 5-40 81453-3) LDL Chol Calc (NIH) (test code = 148 mg/dL 0-99 H 24134-9) Comment: (test code = 48334-0) [facility] Description: Lipid [id number] 08:03:00 Test Item Value Reference Range Interpretation Comments Cholesterol, Total (test code = 209 mg/dL 100-199 H 2093-3) Triglycerides (test code = 2571-8) 172 mg/dL 0-149 H HDL Cholesterol (test code = 29 mg/dL >39 L 5-9) VLDL Cholesterol Renuka (test code = 32 mg/dL 5-40 25241-4) LDL Chol Calc (NIH) (test code = 148 mg/dL 0-99 H 58423-1) Comment: (test code = 06570-4) [facility] Description: Lipid [id number] 08:03:00 Test Item Value Reference Range Interpretation Comments Cholesterol, Total (test code = 209 mg/dL 100-199 H 2093-3) Triglycerides (test code = 2571-8) 172 mg/dL 0-149 H HDL Cholesterol (test code = 29 mg/dL >39 L 2085-9) VLDL Cholesterol Renuka (test code = 32 mg/dL 5-40 61011-5) LDL Chol Calc (NIH) (test code = 148 mg/dL 0-99 H 97968-5) Comment: (test code = 54879-3) [facility] Description: Lipid [id number] 08:03:00 Test Item Value Reference Range Interpretation Comments Cholesterol, Total (test code = 209 mg/dL 100-199 H 2093-3) Triglycerides (test code = 2571-8) 172 mg/dL 0-149 H HDL Cholesterol (test code = 29 mg/dL >39 L 2085-9) VLDL Cholesterol Renuka (test code = 32 mg/dL 5-40 61768-0) LDL Chol Calc (NIH) (test code = 148 mg/dL 0-99 H 60493-5) Comment: (test code = 76790-2) [facility] Description: Lipid [id number] 08:03:00 Test Item Value Reference Range Interpretation Comments Cholesterol, Total (test code = 209 mg/dL 100-199 H 2093-3) Triglycerides (test code = 2571-8) 172 mg/dL 0-149 H HDL Cholesterol (test code = 29 mg/dL >39 L 5-9) VLDL Cholesterol Renuka (test code = 32 mg/dL 5-40 12021-8) LDL Chol Calc (NIH) (test code = 148 mg/dL 0-99 H 50928-5) Comment: (test code = 75981-8) [facility] Description: Lipid [id number] 08:03:00 Test Item Value Reference Range Interpretation Comments Cholesterol, Total (test code = 209 mg/dL 100-199 H 2093-3) Triglycerides (test code = 2571-8) 172 mg/dL 0-149 H HDL Cholesterol (test code = 29 mg/dL >39 L 5-9) VLDL Cholesterol Renuka (test code = 32 mg/dL 5-40 67371-4) LDL Chol Calc (NIH) (test code = 148 mg/dL 0-99 H 91921-4) Comment: (test code = 23424-8) [facility] Description: Lipid [id number] 08:03:00 Test Item Value Reference Range Interpretation Comments Cholesterol, Total (test code = 209 mg/dL 100-199 H 2093-3) Triglycerides (test code = 2571-8) 172 mg/dL 0-149 H HDL Cholesterol (test code = 29 mg/dL >39 L 2085-9) VLDL Cholesterol Renuka (test code = 32 mg/dL 5-40 82951-9) LDL Chol Calc (NIH) (test code = 148 mg/dL 0-99 H 40848-2) Comment: (test code = 63192-7) [facility] Description: Lipid [id number] 08:03:00 Test Item Value Reference Range Interpretation Comments Cholesterol, Total (test code = 209 mg/dL 100-199 H 3-3) Triglycerides (test code = 2571-8) 172 mg/dL 0-149 H HDL Cholesterol (test code = 29 mg/dL >39 L 2085-9) VLDL Cholesterol Renuka (test code = 32 mg/dL 5-40 28135-6) LDL Chol Calc (NIH) (test code = 148 mg/dL 0-99 H 89563-8) Comment: (test code = 72121-0) Pro[facility] Description: Lipid [id number] 08:03:00 Test Item Value Reference Range Interpretation Comments Cholesterol, Total (test code = 209 mg/dL 100-199 H 3-3) Triglycerides (test code = 2571-8) 172 mg/dL 0-149 H HDL Cholesterol (test code = 29 mg/dL >39 L 5-9) VLDL Cholesterol Renuka (test code = 32 mg/dL 5-40 23645-0) LDL Chol Calc (NIH) (test code = 148 mg/dL 0-99 H 14735-7) Comment: (test code = 51013-2) [facility] Description: Lipid [id number] 08:03:00 Test Item Value Reference Range Interpretation Comments Cholesterol, Total (test code = 209 mg/dL 100-199 H 3-3) Triglycerides (test code = 2571-8) 172 mg/dL 0-149 H HDL Cholesterol (test code = 29 mg/dL >39 L 2085-9) VLDL Cholesterol Renuka (test code = 32 mg/dL 5-40 27902-9) LDL Chol Calc (NIH) (test code = 148 mg/dL 0-99 H 97995-4) Comment: (test code = 49875-5) [facility] Description: Lipid [id number] 08:03:00 Test Item Value Reference Range Interpretation Comments Cholesterol, Total (test code = 209 mg/dL 100-199 H 2093-3) Triglycerides (test code = 2571-8) 172 mg/dL 0-149 H HDL Cholesterol (test code = 29 mg/dL >39 L 2085-9) VLDL Cholesterol Renuka (test code = 32 mg/dL 5-40 20278-7) LDL Chol Calc (NIH) (test code = 148 mg/dL 0-99 H 69769-6) Comment: (test code = 55485-9) Proxible Description: Lipid [id number] 08:03:00 Test Item Value Reference Range Interpretation Comments Cholesterol, Total (test code = 209 mg/dL 100-199 H 2093-3) Triglycerides (test code = 2571-8) 172 mg/dL 0-149 H HDL Cholesterol (test code = 29 mg/dL >39 L 2085-9) VLDL Cholesterol Renuka (test code = 32 mg/dL 5-40 42856-9) LDL Chol Calc (NIH) (test code = 148 mg/dL 0-99 H 78372-6) Comment: (test code = 26941-1) [facility] Description: Lipid [id number] 08:03:00 Test Item Value Reference Range Interpretation Comments Cholesterol, Total (test code = 209 mg/dL 100-199 H 2093-3) Triglycerides (test code = 2571-8) 172 mg/dL 0-149 H HDL Cholesterol (test code = 29 mg/dL >39 L 2085-9) VLDL Cholesterol Renuka (test code = 32 mg/dL 5-40 24766-4) LDL Chol Calc (NIH) (test code = 148 mg/dL 0-99 H 47476-6) Comment: (test code = 02048-5) [facility] Description: Lipid [id number] 08:03:00 Test Item Value Reference Range Interpretation Comments Cholesterol, Total (test code = 209 mg/dL 100-199 H 2093-3) Triglycerides (test code = 2571-8) 172 mg/dL 0-149 H HDL Cholesterol (test code = 29 mg/dL >39 L 2085-9) VLDL Cholesterol Renuka (test code = 32 mg/dL 5-40 55713-4) LDL Chol Calc (NIH) (test code = 148 mg/dL 0-99 H 92110-6) Comment: (test code = 34855-0) [facility]ible Description: Lipid [id number] 08:03:00 Test Item Value Reference Range Interpretation Comments Cholesterol, Total (test code = 209 mg/dL 100-199 H 2093-3) Triglycerides (test code = 2571-8) 172 mg/dL 0-149 H HDL Cholesterol (test code = 29 mg/dL >39 L 2085-9) VLDL Cholesterol Renuka (test code = 32 mg/dL 5-40 18527-0) LDL Chol Calc (NIH) (test code = 148 mg/dL 0-99 H 51327-1) Comment: (test code = 46794-3) Proxible Description: Lipid [id number] 08:03:00 Test Item Value Reference Range Interpretation Comments Cholesterol, Total (test code = 209 mg/dL 100-199 H 2093-3) Triglycerides (test code = 2571-8) 172 mg/dL 0-149 H HDL Cholesterol (test code = 29 mg/dL >39 L 5-9) VLDL Cholesterol Renuka (test code = 32 mg/dL 5-40 99042-7) LDL Chol Calc (NIH) (test code = 148 mg/dL 0-99 H 33194-9) Comment: (test code = 67224-4) [facility]ible Description: Lipid [id number] 08:03:00 Test Item Value Reference Range Interpretation Comments Cholesterol, Total (test code = 209 mg/dL 100-199 H 2093-3) Triglycerides (test code = 2571-8) 172 mg/dL 0-149 H HDL Cholesterol (test code = 29 mg/dL >39 L 5-9) VLDL Cholesterol Renuka (test code = 32 mg/dL 5-40 49529-9) LDL Chol Calc (NIH) (test code = 148 mg/dL 0-99 H 49459-2) Comment: (test code = 62111-6) [facility] Description: Lipid [id number] 08:03:00 Test Item Value Reference Range Interpretation Comments Cholesterol, Total (test code = 209 mg/dL 100-199 H 2093-3) Triglycerides (test code = 2571-8) 172 mg/dL 0-149 H HDL Cholesterol (test code = 29 mg/dL >39 L 5-9) VLDL Cholesterol Renuka (test code = 32 mg/dL 5-40 68735-1) LDL Chol Calc (NIH) (test code = 148 mg/dL 0-99 H 22160-5) Comment: (test code = 11303-8) [facility] Description: Lipid [id number] 08:03:00 Test Item Value Reference Range Interpretation Comments Cholesterol, Total (test code = 209 mg/dL 100-199 H 2093-3) Triglycerides (test code = 2571-8) 172 mg/dL 0-149 H HDL Cholesterol (test code = 29 mg/dL >39 L 5-9) VLDL Cholesterol Renuka (test code = 32 mg/dL 5-40 53616-7) LDL Chol Calc (NIH) (test code = 148 mg/dL 0-99 H 37033-3) Comment: (test code = 16341-7) [facility] Description: Comp. Metabolic Panel (14)2020-03-07 06:49:00 Test Item Value Reference Range Interpretation Comments Glucose (test code = 2345-7) 441 mg/dL 65-99 H BUN (test code = 3094-0) 52 mg/dL 6-24 H Creatinine (test code = 2.05 mg/dL 0.76-1.27 H 2160-0) eGFR If NonAfricn Am (test 38 mL/min/1.73 >59 L code = 99641-0) eGFR If Africn Am (test code = 44 mL/min/1.73 >59 L 99005-9) BUN/Creatinine Ratio (test 25 9-20 H code = 3097-3) Sodium (test code = 2951-2) 138 mmol/L 134-144 Potassium (test code = 2823-3) 5.4 mmol/L 3.5-5.2 H Chloride (test code = 2075-0) 96 mmol/L 96-106 Carbon Dioxide, Total (test 29 mmol/L 20-29 code = 8-9) Calcium (test code = 91721-1) 9.2 mg/dL 8.7-10.2 Protein, Total (test code = 6.2 g/dL 6.0-8.5 2885-2) Albumin (test code = 1751-7) 3.4 g/dL 4.0-5.0 L Globulin, Total (test code = 2.8 g/dL 1.5-4.5 82049-5) A/G Ratio (test code = 1759-0) 1.2 1.2-2.2 Bilirubin, Total (test code = 0.5 mg/dL 0.0-1.2 1975-2) Alkaline Phosphatase (test 112 IU/L 39-117 code = 6768-6) AST (SGOT) (test code = 21 IU/L 0-40 1920-8) ALT (SGPT) (test code = 31 IU/L 0-44 1742-6) [facility] Description: Comp. Metabolic Panel (14)2020-03-07 06:49:00 Test Item Value Reference Range Interpretation Comments Glucose (test code = 2345-7) 441 mg/dL 65-99 H BUN (test code = 3094-0) 52 mg/dL 6-24 H Creatinine (test code = 2.05 mg/dL 0.76-1.27 H 2160-0) eGFR If NonAfricn Am (test 38 mL/min/1.73 >59 L code = 05212-4) eGFR If Africn Am (test code = 44 mL/min/1.73 >59 L 61297-1) BUN/Creatinine Ratio (test 25 9-20 H code = 3097-3) Sodium (test code = 2951-2) 138 mmol/L 134-144 Potassium (test code = 2823-3) 5.4 mmol/L 3.5-5.2 H Chloride (test code = 2075-0) 96 mmol/L 96-106 Carbon Dioxide, Total (test 29 mmol/L 20-29 code = 8-9) Calcium (test code = 51340-7) 9.2 mg/dL 8.7-10.2 Protein, Total (test code = 6.2 g/dL 6.0-8.5 2885-2) Albumin (test code = 1751-7) 3.4 g/dL 4.0-5.0 L Globulin, Total (test code = 2.8 g/dL 1.5-4.5 89481-0) A/G Ratio (test code = 1759-0) 1.2 1.2-2.2 Bilirubin, Total (test code = 0.5 mg/dL 0.0-1.2 1974-2) Alkaline Phosphatase (test 112 IU/L 39-117 code = 6768-6) AST (SGOT) (test code = 21 IU/L 0-40 1920-8) ALT (SGPT) (test code = 31 IU/L 0-44 1742-6) [facility] Description: Comp. Metabolic Panel (14)2020-03-07 06:49:00 Test Item Value Reference Range Interpretation Comments Glucose (test code = 2345-7) 441 mg/dL 65-99 H BUN (test code = 3094-0) 52 mg/dL 6-24 H Creatinine (test code = 2.05 mg/dL 0.76-1.27 H 2160-0) eGFR If NonAfricn Am (test 38 mL/min/1.73 >59 L code = 65521-7) eGFR If Africn Am (test code = 44 mL/min/1.73 >59 L 97382-5) BUN/Creatinine Ratio (test 25 9-20 H code = 3097-3) Sodium (test code = 2951-2) 138 mmol/L 134-144 Potassium (test code = 2823-3) 5.4 mmol/L 3.5-5.2 H Chloride (test code = 2075-0) 96 mmol/L 96-106 Carbon Dioxide, Total (test 29 mmol/L 20-29 code = 2027-9) Calcium (test code = 18869-8) 9.2 mg/dL 8.7-10.2 Protein, Total (test code = 6.2 g/dL 6.0-8.5 2885-2) Albumin (test code = 1751-7) 3.4 g/dL 4.0-5.0 L Globulin, Total (test code = 2.8 g/dL 1.5-4.5 28625-1) A/G Ratio (test code = 1759-0) 1.2 1.2-2.2 Bilirubin, Total (test code = 0.5 mg/dL 0.0-1.2 1974-04) Alkaline Phosphatase (test 112 IU/L 39-117 code = 6768-6) AST (SGOT) (test code = 21 IU/L 0-40 0-8) ALT (SGPT) (test code = 31 IU/L 0-44 1742-6) [facility] Description: Comp. Metabolic Panel (14)2020-03-07 06:49:00 Test Item Value Reference Range Interpretation Comments Glucose (test code = 2345-7) 441 mg/dL 65-99 H BUN (test code = 3094-0) 52 mg/dL 6-24 H Creatinine (test code = 2.05 mg/dL 0.76-1.27 H 2160-0) eGFR If NonAfricn Am (test 38 mL/min/1.73 >59 L code = 10501-6) eGFR If Africn Am (test code = 44 mL/min/1.73 >59 L 47336-4) BUN/Creatinine Ratio (test 25 9-20 H code = 3097-3) Sodium (test code = 2951-2) 138 mmol/L 134-144 Potassium (test code = 2823-3) 5.4 mmol/L 3.5-5.2 H Chloride (test code = 2075-0) 96 mmol/L 96-106 Carbon Dioxide, Total (test 29 mmol/L 20-29 code = 2027-9) Calcium (test code = 96271-8) 9.2 mg/dL 8.7-10.2 Protein, Total (test code = 6.2 g/dL 6.0-8.5 2885-2) Albumin (test code = 1751-7) 3.4 g/dL 4.0-5.0 L Globulin, Total (test code = 2.8 g/dL 1.5-4.5 81764-9) A/G Ratio (test code = 1759-0) 1.2 1.2-2.2 Bilirubin, Total (test code = 0.5 mg/dL 0.0-1.2 1974-04) Alkaline Phosphatase (test 112 IU/L 39-117 code = 6768-6) AST (SGOT) (test code = 21 IU/L 0-40 0-8) ALT (SGPT) (test code = 31 IU/L 0-44 1742-6) [facility] Description: Comp. Metabolic Panel (14)2020-03-07 06:49:00 Test Item Value Reference Range Interpretation Comments Glucose (test code = 2345-7) 441 mg/dL 65-99 H BUN (test code = 3094-0) 52 mg/dL 6-24 H Creatinine (test code = 2.05 mg/dL 0.76-1.27 H 2160-0) eGFR If NonAfricn Am (test 38 mL/min/1.73 >59 L code = 30183-5) eGFR If Africn Am (test code = 44 mL/min/1.73 >59 L 31230-0) BUN/Creatinine Ratio (test 25 9-20 H code = 3097-3) Sodium (test code = 2951-2) 138 mmol/L 134-144 Potassium (test code = 2823-3) 5.4 mmol/L 3.5-5.2 H Chloride (test code = 2075-0) 96 mmol/L 96-106 Carbon Dioxide, Total (test 29 mmol/L 20-29 code = 2027-9) Calcium (test code = 53565-1) 9.2 mg/dL 8.7-10.2 Protein, Total (test code = 6.2 g/dL 6.0-8.5 2885-2) Albumin (test code = 1751-7) 3.4 g/dL 4.0-5.0 L Globulin, Total (test code = 2.8 g/dL 1.5-4.5 18476-6) A/G Ratio (test code = 1759-0) 1.2 1.2-2.2 Bilirubin, Total (test code = 0.5 mg/dL 0.0-1.2 1975-2) Alkaline Phosphatase (test 112 IU/L 39-117 code = 6768-6) AST (SGOT) (test code = 21 IU/L 0-40 1920-8) ALT (SGPT) (test code = 31 IU/L 0-44 1742-6) [facility] Description: Comp. Metabolic Panel (14)2020-03-07 06:49:00 Test Item Value Reference Range Interpretation Comments Glucose (test code = 2345-7) 441 mg/dL 65-99 H BUN (test code = 3094-0) 52 mg/dL 6-24 H Creatinine (test code = 2.05 mg/dL 0.76-1.27 H 2160-0) eGFR If NonAfricn Am (test 38 mL/min/1.73 >59 L code = 64409-7) eGFR If Africn Am (test code = 44 mL/min/1.73 >59 L 96322-3) BUN/Creatinine Ratio (test 25 9-20 H code = 3097-3) Sodium (test code = 2951-2) 138 mmol/L 134-144 Potassium (test code = 2823-3) 5.4 mmol/L 3.5-5.2 H Chloride (test code = 2075-0) 96 mmol/L 96-106 Carbon Dioxide, Total (test 29 mmol/L 20-29 code = 8-9) Calcium (test code = 96946-6) 9.2 mg/dL 8.7-10.2 Protein, Total (test code = 6.2 g/dL 6.0-8.5 2885-2) Albumin (test code = 1751-7) 3.4 g/dL 4.0-5.0 L Globulin, Total (test code = 2.8 g/dL 1.5-4.5 90586-8) A/G Ratio (test code = 1759-0) 1.2 1.2-2.2 Bilirubin, Total (test code = 0.5 mg/dL 0.0-1.2 1975-2) Alkaline Phosphatase (test 112 IU/L 39-117 code = 6768-6) AST (SGOT) (test code = 21 IU/L 0-40 1920-8) ALT (SGPT) (test code = 31 IU/L 0-44 1742-6) [facility] Description: Comp. Metabolic Panel (142020-03-07 06:49:00 Test Item Value Reference Range Interpretation Comments Glucose (test code = 2345-7) 441 mg/dL 65-99 H BUN (test code = 3094-0) 52 mg/dL 6-24 H Creatinine (test code = 2.05 mg/dL 0.76-1.27 H 2160-0) eGFR If NonAfricn Am (test 38 mL/min/1.73 >59 L code = 48808-4) eGFR If Africn Am (test code = 44 mL/min/1.73 >59 L 72764-7) BUN/Creatinine Ratio (test 25 9-20 H code = 3097-3) Sodium (test code = 2951-2) 138 mmol/L 134-144 Potassium (test code = 2823-3) 5.4 mmol/L 3.5-5.2 H Chloride (test code = 2075-0) 96 mmol/L 96-106 Carbon Dioxide, Total (test 29 mmol/L 20-29 code = 2028-9) Calcium (test code = 12494-9) 9.2 mg/dL 8.7-10.2 Protein, Total (test code = 6.2 g/dL 6.0-8.5 2885-2) Albumin (test code = 1751-7) 3.4 g/dL 4.0-5.0 L Globulin, Total (test code = 2.8 g/dL 1.5-4.5 90845-2) A/G Ratio (test code = 1759-0) 1.2 1.2-2.2 Bilirubin, Total (test code = 0.5 mg/dL 0.0-1.2 1975-2) Alkaline Phosphatase (test 112 IU/L 39-117 code = 6768-6) AST (SGOT) (test code = 21 IU/L 0-40 1920-8) ALT (SGPT) (test code = 31 IU/L 0-44 1742-6) [facility] Description: Comp. Metabolic Panel (142020-03-07 06:49:00 Test Item Value Reference Range Interpretation Comments Glucose (test code = 2345-7) 441 mg/dL 65-99 H BUN (test code = 3094-0) 52 mg/dL 6-24 H Creatinine (test code = 2.05 mg/dL 0.76-1.27 H 2160-0) eGFR If NonAfricn Am (test 38 mL/min/1.73 >59 L code = 57999-5) eGFR If Africn Am (test code = 44 mL/min/1.73 >59 L 91310-8) BUN/Creatinine Ratio (test 25 9-20 H code = 3097-3) Sodium (test code = 2951-2) 138 mmol/L 134-144 Potassium (test code = 2823-3) 5.4 mmol/L 3.5-5.2 H Chloride (test code = 2075-0) 96 mmol/L 96-106 Carbon Dioxide, Total (test 29 mmol/L 20-29 code = 2027-9) Calcium (test code = 93069-7) 9.2 mg/dL 8.7-10.2 Protein, Total (test code = 6.2 g/dL 6.0-8.5 2885-2) Albumin (test code = 1751-7) 3.4 g/dL 4.0-5.0 L Globulin, Total (test code = 2.8 g/dL 1.5-4.5 98285-8) A/G Ratio (test code = 1759-0) 1.2 1.2-2.2 Bilirubin, Total (test code = 0.5 mg/dL 0.0-1.2 1975-2) Alkaline Phosphatase (test 112 IU/L 39-117 code = 6768-6) AST (SGOT) (test code = 21 IU/L 0-40 1920-8) ALT (SGPT) (test code = 31 IU/L 0-44 1742-6) [facility] Description: Comp. Metabolic Panel (142020-03-07 06:49:00 Test Item Value Reference Range Interpretation Comments Glucose (test code = 2345-7) 441 mg/dL 65-99 H BUN (test code = 3094-0) 52 mg/dL 6-24 H Creatinine (test code = 2.05 mg/dL 0.76-1.27 H 2160-0) eGFR If NonAfricn Am (test 38 mL/min/1.73 >59 L code = 43312-5) eGFR If Africn Am (test code = 44 mL/min/1.73 >59 L 65503-8) BUN/Creatinine Ratio (test 25 9-20 H code = 3097-3) Sodium (test code = 2951-2) 138 mmol/L 134-144 Potassium (test code = 2823-3) 5.4 mmol/L 3.5-5.2 H Chloride (test code = 2075-0) 96 mmol/L 96-106 Carbon Dioxide, Total (test 29 mmol/L -29 code = 2027-9) Calcium (test code = 27598-2) 9.2 mg/dL 8.7-10.2 Protein, Total (test code = 6.2 g/dL 6.0-8.5 2885-2) Albumin (test code = 1751-7) 3.4 g/dL 4.0-5.0 L Globulin, Total (test code = 2.8 g/dL 1.5-4.5 31832-4) A/G Ratio (test code = 1759-0) 1.2 1.2-2.2 Bilirubin, Total (test code = 0.5 mg/dL 0.0-1.2 1975-2) Alkaline Phosphatase (test 112 IU/L 39-117 code = 6768-6) AST (SGOT) (test code = 21 IU/L 0-40 1920-8) ALT (SGPT) (test code = 31 IU/L 0-44 1742-6) [facility] Description: Comp. Metabolic Panel (142020-03-07 06:49:00 Test Item Value Reference Range Interpretation Comments Glucose (test code = 2345-7) 441 mg/dL 65-99 H BUN (test code = 3094-0) 52 mg/dL 6-24 H Creatinine (test code = 2.05 mg/dL 0.76-1.27 H 2160-0) eGFR If NonAfricn Am (test 38 mL/min/1.73 >59 L code = 63629-9) eGFR If Africn Am (test code = 44 mL/min/1.73 >59 L 37346-1) BUN/Creatinine Ratio (test 25 9-20 H code = 3097-3) Sodium (test code = 2951-2) 138 mmol/L 134-144 Potassium (test code = 2823-3) 5.4 mmol/L 3.5-5.2 H Chloride (test code = 2075-0) 96 mmol/L 96-106 Carbon Dioxide, Total (test 29 mmol/L -29 code = 2027-9) Calcium (test code = 46067-4) 9.2 mg/dL 8.7-10.2 Protein, Total (test code = 6.2 g/dL 6.0-8.5 2885-2) Albumin (test code = 1751-7) 3.4 g/dL 4.0-5.0 L Globulin, Total (test code = 2.8 g/dL 1.5-4.5 21546-4) A/G Ratio (test code = 1759-0) 1.2 1.2-2.2 Bilirubin, Total (test code = 0.5 mg/dL 0.0-1.2 1975-2) Alkaline Phosphatase (test 112 IU/L 39-117 code = 6768-6) AST (SGOT) (test code = 21 IU/L 0-40 1920-8) ALT (SGPT) (test code = 31 IU/L 0-44 1742-6) [facility] Description: Comp. Metabolic Panel (14)2020-03-07 06:49:00 Test Item Value Reference Range Interpretation Comments Glucose (test code = 2345-7) 441 mg/dL 65-99 H BUN (test code = 3094-0) 52 mg/dL 6-24 H Creatinine (test code = 2.05 mg/dL 0.76-1.27 H 2160-0) eGFR If NonAfricn Am (test 38 mL/min/1.73 >59 L code = 35323-8) eGFR If Africn Am (test code = 44 mL/min/1.73 >59 L 09454-0) BUN/Creatinine Ratio (test 25 9-20 H code = 3097-3) Sodium (test code = 2951-2) 138 mmol/L 134-144 Potassium (test code = 2823-3) 5.4 mmol/L 3.5-5.2 H Chloride (test code = 2075-0) 96 mmol/L 96-106 Carbon Dioxide, Total (test 29 mmol/L 20-29 code = 8-9) Calcium (test code = 96611-5) 9.2 mg/dL 8.7-10.2 Protein, Total (test code = 6.2 g/dL 6.0-8.5 2885-2) Albumin (test code = 1751-7) 3.4 g/dL 4.0-5.0 L Globulin, Total (test code = 2.8 g/dL 1.5-4.5 93395-2) A/G Ratio (test code = 1759-0) 1.2 1.2-2.2 Bilirubin, Total (test code = 0.5 mg/dL 0.0-1.2 1974-) Alkaline Phosphatase (test 112 IU/L 39-117 code = 6768-6) AST (SGOT) (test code = 21 IU/L 0-40 1920-8) ALT (SGPT) (test code = 31 IU/L 0-44 1742-6) [facility] Description: Comp. Metabolic Panel (14)2020-03-07 06:49:00 Test Item Value Reference Range Interpretation Comments Glucose (test code = 2345-7) 441 mg/dL 65-99 H BUN (test code = 3094-0) 52 mg/dL 6-24 H Creatinine (test code = 2.05 mg/dL 0.76-1.27 H 2160-0) eGFR If NonAfricn Am (test 38 mL/min/1.73 >59 L code = 04378-0) eGFR If Africn Am (test code = 44 mL/min/1.73 >59 L 49930-7) BUN/Creatinine Ratio (test 25 9-20 H code = 3097-3) Sodium (test code = 2951-2) 138 mmol/L 134-144 Potassium (test code = 2823-3) 5.4 mmol/L 3.5-5.2 H Chloride (test code = 2075-0) 96 mmol/L 96-106 Carbon Dioxide, Total (test 29 mmol/L 20-29 code = 8-9) Calcium (test code = 90841-5) 9.2 mg/dL 8.7-10.2 Protein, Total (test code = 6.2 g/dL 6.0-8.5 2885-2) Albumin (test code = 1751-7) 3.4 g/dL 4.0-5.0 L Globulin, Total (test code = 2.8 g/dL 1.5-4.5 00716-3) A/G Ratio (test code = 1759-0) 1.2 1.2-2.2 Bilirubin, Total (test code = 0.5 mg/dL 0.0-1.2 1974-) Alkaline Phosphatase (test 112 IU/L 39-117 code = 6768-6) AST (SGOT) (test code = 21 IU/L 0-40 1920-8) ALT (SGPT) (test code = 31 IU/L 0-44 1742-6) [facility] Description: Comp. Metabolic Panel (142020-03-07 06:49:00 Test Item Value Reference Range Interpretation Comments Glucose (test code = 2345-7) 441 mg/dL 65-99 H BUN (test code = 3094-0) 52 mg/dL 6-24 H Creatinine (test code = 2.05 mg/dL 0.76-1.27 H 2160-0) eGFR If NonAfricn Am (test 38 mL/min/1.73 >59 L code = 81179-7) eGFR If Africn Am (test code = 44 mL/min/1.73 >59 L 35767-6) BUN/Creatinine Ratio (test 25 9-20 H code = 3097-3) Sodium (test code = 2951-2) 138 mmol/L 134-144 Potassium (test code = 2823-3) 5.4 mmol/L 3.5-5.2 H Chloride (test code = 2075-0) 96 mmol/L 96-106 Carbon Dioxide, Total (test 29 mmol/L 20-29 code = 8-9) Calcium (test code = 29656-3) 9.2 mg/dL 8.7-10.2 Protein, Total (test code = 6.2 g/dL 6.0-8.5 2885-2) Albumin (test code = 1751-7) 3.4 g/dL 4.0-5.0 L Globulin, Total (test code = 2.8 g/dL 1.5-4.5 45344-0) A/G Ratio (test code = 1759-0) 1.2 1.2-2.2 Bilirubin, Total (test code = 0.5 mg/dL 0.0-1.2 1975-2) Alkaline Phosphatase (test 112 IU/L 39-117 code = 6768-6) AST (SGOT) (test code = 21 IU/L 0-40 1920-8) ALT (SGPT) (test code = 31 IU/L 0-44 1742-6) [facility] Description: Comp. Metabolic Panel (14)2020-03-07 06:49:00 Test Item Value Reference Range Interpretation Comments Glucose (test code = 2345-7) 441 mg/dL 65-99 H BUN (test code = 3094-0) 52 mg/dL 6-24 H Creatinine (test code = 2.05 mg/dL 0.76-1.27 H 2160-0) eGFR If NonAfricn Am (test 38 mL/min/1.73 >59 L code = 31051-8) eGFR If Africn Am (test code = 44 mL/min/1.73 >59 L 31223-4) BUN/Creatinine Ratio (test 25 9-20 H code = 3097-3) Sodium (test code = 2951-2) 138 mmol/L 134-144 Potassium (test code = 2823-3) 5.4 mmol/L 3.5-5.2 H Chloride (test code = 2075-0) 96 mmol/L 96-106 Carbon Dioxide, Total (test 29 mmol/L 20-29 code = 8-9) Calcium (test code = 47843-2) 9.2 mg/dL 8.7-10.2 Protein, Total (test code = 6.2 g/dL 6.0-8.5 2885-2) Albumin (test code = 1751-7) 3.4 g/dL 4.0-5.0 L Globulin, Total (test code = 2.8 g/dL 1.5-4.5 80237-9) A/G Ratio (test code = 1759-0) 1.2 1.2-2.2 Bilirubin, Total (test code = 0.5 mg/dL 0.0-1.2 1975-2) Alkaline Phosphatase (test 112 IU/L 39-117 code = 6768-6) AST (SGOT) (test code = 21 IU/L 0-40 1920-8) ALT (SGPT) (test code = 31 IU/L 0-44 1742-6) [facility] Description: Comp. Metabolic Panel (14)2020-03-07 06:49:00 Test Item Value Reference Range Interpretation Comments Glucose (test code = 2345-7) 441 mg/dL 65-99 H BUN (test code = 3094-0) 52 mg/dL 6-24 H Creatinine (test code = 2.05 mg/dL 0.76-1.27 H 2160-0) eGFR If NonAfricn Am (test 38 mL/min/1.73 >59 L code = 90821-2) eGFR If Africn Am (test code = 44 mL/min/1.73 >59 L 16504-8) BUN/Creatinine Ratio (test 25 9-20 H code = 3097-3) Sodium (test code = 2951-2) 138 mmol/L 134-144 Potassium (test code = 2823-3) 5.4 mmol/L 3.5-5.2 H Chloride (test code = 2075-0) 96 mmol/L 96-106 Carbon Dioxide, Total (test 29 mmol/L 20-29 code = 8-9) Calcium (test code = 76583-8) 9.2 mg/dL 8.7-10.2 Protein, Total (test code = 6.2 g/dL 6.0-8.5 2885-2) Albumin (test code = 1751-7) 3.4 g/dL 4.0-5.0 L Globulin, Total (test code = 2.8 g/dL 1.5-4.5 20858-2) A/G Ratio (test code = 1759-0) 1.2 1.2-2.2 Bilirubin, Total (test code = 0.5 mg/dL 0.0-1.2 1975-2) Alkaline Phosphatase (test 112 IU/L 39-117 code = 6768-6) AST (SGOT) (test code = 21 IU/L 0-40 1920-8) ALT (SGPT) (test code = 31 IU/L 0-44 1742-6) [facility] Description: Comp. Metabolic Panel (142020-03-07 06:49:00 Test Item Value Reference Range Interpretation Comments Glucose (test code = 2345-7) 441 mg/dL 65-99 H BUN (test code = 3094-0) 52 mg/dL 6-24 H Creatinine (test code = 2.05 mg/dL 0.76-1.27 H 2160-0) eGFR If NonAfricn Am (test 38 mL/min/1.73 >59 L code = 96207-2) eGFR If Africn Am (test code = 44 mL/min/1.73 >59 L 77101-3) BUN/Creatinine Ratio (test 25 9-20 H code = 3097-3) Sodium (test code = 2951-2) 138 mmol/L 134-144 Potassium (test code = 2823-3) 5.4 mmol/L 3.5-5.2 H Chloride (test code = 2075-0) 96 mmol/L 96-106 Carbon Dioxide, Total (test 29 mmol/L 20-29 code = 8-9) Calcium (test code = 43316-5) 9.2 mg/dL 8.7-10.2 Protein, Total (test code = 6.2 g/dL 6.0-8.5 2885-2) Albumin (test code = 1751-7) 3.4 g/dL 4.0-5.0 L Globulin, Total (test code = 2.8 g/dL 1.5-4.5 62837-0) A/G Ratio (test code = 1759-0) 1.2 1.2-2.2 Bilirubin, Total (test code = 0.5 mg/dL 0.0-1.2 1975-2) Alkaline Phosphatase (test 112 IU/L 39-117 code = 6768-6) AST (SGOT) (test code = 21 IU/L 0-40 1920-8) ALT (SGPT) (test code = 31 IU/L 0-44 1742-6) [facility] Description: Comp. Metabolic Panel (14)2020-03-07 06:49:00 Test Item Value Reference Range Interpretation Comments Glucose (test code = 2345-7) 441 mg/dL 65-99 H BUN (test code = 3094-0) 52 mg/dL 6-24 H Creatinine (test code = 2.05 mg/dL 0.76-1.27 H 2160-0) eGFR If NonAfricn Am (test 38 mL/min/1.73 >59 L code = 72626-4) eGFR If Africn Am (test code = 44 mL/min/1.73 >59 L 22189-9) BUN/Creatinine Ratio (test 25 9-20 H code = 3097-3) Sodium (test code = 2951-2) 138 mmol/L 134-144 Potassium (test code = 2823-3) 5.4 mmol/L 3.5-5.2 H Chloride (test code = 2075-0) 96 mmol/L 96-106 Carbon Dioxide, Total (test 29 mmol/L - code = 2027-) Calcium (test code = 15815-8) 9.2 mg/dL 8.7-10.2 Protein, Total (test code = 6.2 g/dL 6.0-8.5 2885-2) Albumin (test code = 1751-7) 3.4 g/dL 4.0-5.0 L Globulin, Total (test code = 2.8 g/dL 1.5-4.5 11871-5) A/G Ratio (test code = 1759-0) 1.2 1.2-2.2 Bilirubin, Total (test code = 0.5 mg/dL 0.0-1.2 1975-2) Alkaline Phosphatase (test 112 IU/L 39-117 code = 6768-6) AST (SGOT) (test code = 21 IU/L 0-40 1920-8) ALT (SGPT) (test code = 31 IU/L 0-44 1742-6) [facility] Description: Comp. Metabolic Panel (142020-03-07 06:49:00 Test Item Value Reference Range Interpretation Comments Glucose (test code = 2345-7) 441 mg/dL 65-99 H BUN (test code = 3094-0) 52 mg/dL 6-24 H Creatinine (test code = 2.05 mg/dL 0.76-1.27 H 2160-0) eGFR If NonAfricn Am (test 38 mL/min/1.73 >59 L code = 99905-2) eGFR If Africn Am (test code = 44 mL/min/1.73 >59 L 04741-5) BUN/Creatinine Ratio (test 25 9-20 H code = 3097-3) Sodium (test code = 2951-2) 138 mmol/L 134-144 Potassium (test code = 2823-3) 5.4 mmol/L 3.5-5.2 H Chloride (test code = 2075-0) 96 mmol/L 96-106 Carbon Dioxide, Total (test 29 mmol/L 20-29 code = 2027-) Calcium (test code = 76348-1) 9.2 mg/dL 8.7-10.2 Protein, Total (test code = 6.2 g/dL 6.0-8.5 2885-2) Albumin (test code = 1751-7) 3.4 g/dL 4.0-5.0 L Globulin, Total (test code = 2.8 g/dL 1.5-4.5 15920-4) A/G Ratio (test code = 1759-0) 1.2 1.2-2.2 Bilirubin, Total (test code = 0.5 mg/dL 0.0-1.2 1975-2) Alkaline Phosphatase (test 112 IU/L 39-117 code = 6768-6) AST (SGOT) (test code = 21 IU/L 0-40 1920-8) ALT (SGPT) (test code = 31 IU/L 0-44 1742-6) [facility]: [facility] (2020-03-07 06:49:00 Test Item Value Reference Range Interpretation Comments Glucose (test code = 2345-7) 441 mg/dL 65-99 H BUN (test code = 3094-0) 52 mg/dL 6-24 H Creatinine (test code = 2.05 mg/dL 0.76-1.27 H 2160-0) eGFR If NonAfricn Am (test 38 mL/min/1.73 >59 L code = 17528-4) eGFR If Africn Am (test code = 44 mL/min/1.73 >59 L 21014-9) BUN/Creatinine Ratio (test 25 9-20 H code = 3097-3) Sodium (test code = 2951-2) 138 mmol/L 134-144 Potassium (test code = 2823-3) 5.4 mmol/L 3.5-5.2 H Chloride (test code = 2075-0) 96 mmol/L 96-106 Carbon Dioxide, Total (test 29 mmol/L code = 2027-) Calcium (test code = 04406-3) 9.2 mg/dL 8.7-10.2 Protein, Total (test code = 6.2 g/dL 6.0-8.5 2885-2) Albumin (test code = 1751-7) 3.4 g/dL 4.0-5.0 L Globulin, Total (test code = 2.8 g/dL 1.5-4.5 36082-4) A/G Ratio (test code = 1759-0) 1.2 1.2-2.2 Bilirubin, Total (test code = 0.5 mg/dL 0.0-1.2 1975-2) Alkaline Phosphatase (test 112 IU/L 39-117 code = 6768-6) AST (SGOT) (test code = 21 IU/L 0-40 1920-8) ALT (SGPT) (test code = 31 IU/L 0-44 1742-6) [facility] Description: Comp. Metabolic Panel (2020-03-07 06:49:00 Test Item Value Reference Range Interpretation Comments Glucose (test code = 2345-7) 441 mg/dL 65-99 H BUN (test code = 3094-0) 52 mg/dL 6-24 H Creatinine (test code = 2.05 mg/dL 0.76-1.27 H 2160-0) eGFR If NonAfricn Am (test 38 mL/min/1.73 >59 L code = 19297-0) eGFR If Africn Am (test code = 44 mL/min/1.73 >59 L 16526-0) BUN/Creatinine Ratio (test 25 9-20 H code = 3097-3) Sodium (test code = 2951-2) 138 mmol/L 134-144 Potassium (test code = 2823-3) 5.4 mmol/L 3.5-5.2 H Chloride (test code = 2075-0) 96 mmol/L 96-106 Carbon Dioxide, Total (test 29 mmol/L 20-29 code = 8-9) Calcium (test code = 25657-3) 9.2 mg/dL 8.7-10.2 Protein, Total (test code = 6.2 g/dL 6.0-8.5 2885-2) Albumin (test code = 1751-7) 3.4 g/dL 4.0-5.0 L Globulin, Total (test code = 2.8 g/dL 1.5-4.5 16853-9) A/G Ratio (test code = 1759-0) 1.2 1.2-2.2 Bilirubin, Total (test code = 0.5 mg/dL 0.0-1.2 1974-) Alkaline Phosphatase (test 112 IU/L 39-117 code = 6768-6) AST (SGOT) (test code = 21 IU/L 0-40 1920-8) ALT (SGPT) (test code = 31 IU/L 0-44 1742-6) [facility] Description: Comp. Metabolic Panel (2020-03-07 06:49:00 Test Item Value Reference Range Interpretation Comments Glucose (test code = 2345-7) 441 mg/dL 65-99 H BUN (test code = 3094-0) 52 mg/dL 6-24 H Creatinine (test code = 2.05 mg/dL 0.76-1.27 H 2160-0) eGFR If NonAfricn Am (test 38 mL/min/1.73 >59 L code = 46658-0) eGFR If Africn Am (test code = 44 mL/min/1.73 >59 L 12250-9) BUN/Creatinine Ratio (test 25 9-20 H code = 3097-3) Sodium (test code = 2951-2) 138 mmol/L 134-144 Potassium (test code = 2823-3) 5.4 mmol/L 3.5-5.2 H Chloride (test code = 2075-0) 96 mmol/L 96-106 Carbon Dioxide, Total (test 29 mmol/L 20-29 code = 8-9) Calcium (test code = 89834-4) 9.2 mg/dL 8.7-10.2 Protein, Total (test code = 6.2 g/dL 6.0-8.5 2885-2) Albumin (test code = 1751-7) 3.4 g/dL 4.0-5.0 L Globulin, Total (test code = 2.8 g/dL 1.5-4.5 72535-7) A/G Ratio (test code = 1759-0) 1.2 1.2-2.2 Bilirubin, Total (test code = 0.5 mg/dL 0.0-1.2 1974-2) Alkaline Phosphatase (test 112 IU/L 39-117 code = 6768-6) AST (SGOT) (test code = 21 IU/L 0-40 1920-8) ALT (SGPT) (test code = 31 IU/L 0-44 1742-6) [facility] Description: Comp. Metabolic Panel (14)2020-03-07 06:49:00 Test Item Value Reference Range Interpretation Comments Glucose (test code = 2345-7) 441 mg/dL 65-99 H BUN (test code = 3094-0) 52 mg/dL 6-24 H Creatinine (test code = 2.05 mg/dL 0.76-1.27 H 2160-0) eGFR If NonAfricn Am (test 38 mL/min/1.73 >59 L code = 19470-1) eGFR If Africn Am (test code = 44 mL/min/1.73 >59 L 85693-3) BUN/Creatinine Ratio (test 25 9-20 H code = 3097-3) Sodium (test code = 2951-2) 138 mmol/L 134-144 Potassium (test code = 2823-3) 5.4 mmol/L 3.5-5.2 H Chloride (test code = 2075-0) 96 mmol/L 96-106 Carbon Dioxide, Total (test 29 mmol/L 20-29 code = 8-9) Calcium (test code = 60543-5) 9.2 mg/dL 8.7-10.2 Protein, Total (test code = 6.2 g/dL 6.0-8.5 2885-2) Albumin (test code = 1751-7) 3.4 g/dL 4.0-5.0 L Globulin, Total (test code = 2.8 g/dL 1.5-4.5 37067-4) A/G Ratio (test code = 1759-0) 1.2 1.2-2.2 Bilirubin, Total (test code = 0.5 mg/dL 0.0-1.2 1975-2) Alkaline Phosphatase (test 112 IU/L 39-117 code = 6768-6) AST (SGOT) (test code = 21 IU/L 0-40 1920-8) ALT (SGPT) (test code = 31 IU/L 0-44 1742-6) [facility] Description: Comp. Metabolic Panel (14)2020-03-07 06:49:00 Test Item Value Reference Range Interpretation Comments Glucose (test code = 2345-7) 441 mg/dL 65-99 H BUN (test code = 3094-0) 52 mg/dL 6-24 H Creatinine (test code = 2.05 mg/dL 0.76-1.27 H 2160-0) eGFR If NonAfricn Am (test 38 mL/min/1.73 >59 L code = 10674-4) eGFR If Africn Am (test code = 44 mL/min/1.73 >59 L 40670-1) BUN/Creatinine Ratio (test 25 9-20 H code = 3097-3) Sodium (test code = 2951-2) 138 mmol/L 134-144 Potassium (test code = 2823-3) 5.4 mmol/L 3.5-5.2 H Chloride (test code = 2075-0) 96 mmol/L 96-106 Carbon Dioxide, Total (test 29 mmol/L 20-29 code = 8-9) Calcium (test code = 81543-0) 9.2 mg/dL 8.7-10.2 Protein, Total (test code = 6.2 g/dL 6.0-8.5 2885-2) Albumin (test code = 1751-7) 3.4 g/dL 4.0-5.0 L Globulin, Total (test code = 2.8 g/dL 1.5-4.5 65657-6) A/G Ratio (test code = 1759-0) 1.2 1.2-2.2 Bilirubin, Total (test code = 0.5 mg/dL 0.0-1.2 1975-2) Alkaline Phosphatase (test 112 IU/L 39-117 code = 6768-6) AST (SGOT) (test code = 21 IU/L 0-40 1920-8) ALT (SGPT) (test code = 31 IU/L 0-44 1742-6) [facility] Description: Comp. Metabolic Panel (14)2020-03-07 06:49:00 Test Item Value Reference Range Interpretation Comments Glucose (test code = 2345-7) 441 mg/dL 65-99 H BUN (test code = 3094-0) 52 mg/dL 6-24 H Creatinine (test code = 2.05 mg/dL 0.76-1.27 H 2160-0) eGFR If NonAfricn Am (test 38 mL/min/1.73 >59 L code = 43037-7) eGFR If Africn Am (test code = 44 mL/min/1.73 >59 L 16949-7) BUN/Creatinine Ratio (test 25 9-20 H code = 3097-3) Sodium (test code = 2951-2) 138 mmol/L 134-144 Potassium (test code = 2823-3) 5.4 mmol/L 3.5-5.2 H Chloride (test code = 2075-0) 96 mmol/L 96-106 Carbon Dioxide, Total (test 29 mmol/L 20-29 code = 2028-9) Calcium (test code = 20638-5) 9.2 mg/dL 8.7-10.2 Protein, Total (test code = 6.2 g/dL 6.0-8.5 2885-2) Albumin (test code = 1751-7) 3.4 g/dL 4.0-5.0 L Globulin, Total (test code = 2.8 g/dL 1.5-4.5 79781-7) A/G Ratio (test code = 1759-0) 1.2 1.2-2.2 Bilirubin, Total (test code = 0.5 mg/dL 0.0-1.2 1975-2) Alkaline Phosphatase (test 112 IU/L 39-117 code = 6768-6) AST (SGOT) (test code = 21 IU/L 0-40 1920-8) ALT (SGPT) (test code = 31 IU/L 0-44 1742-6) [facility] Description: Comp. Metabolic Panel (14)2020-03-07 06:49:00 Test Item Value Reference Range Interpretation Comments Glucose (test code = 2345-7) 441 mg/dL 65-99 H BUN (test code = 3094-0) 52 mg/dL 6-24 H Creatinine (test code = 2.05 mg/dL 0.76-1.27 H 2160-0) eGFR If NonAfricn Am (test 38 mL/min/1.73 >59 L code = 10458-6) eGFR If Africn Am (test code = 44 mL/min/1.73 >59 L 28955-8) BUN/Creatinine Ratio (test 25 9-20 H code = 3097-3) Sodium (test code = 2951-2) 138 mmol/L 134-144 Potassium (test code = 2823-3) 5.4 mmol/L 3.5-5.2 H Chloride (test code = 2075-0) 96 mmol/L 96-106 Carbon Dioxide, Total (test 29 mmol/L 20-29 code = 8-9) Calcium (test code = 25403-7) 9.2 mg/dL 8.7-10.2 Protein, Total (test code = 6.2 g/dL 6.0-8.5 2885-2) Albumin (test code = 1751-7) 3.4 g/dL 4.0-5.0 L Globulin, Total (test code = 2.8 g/dL 1.5-4.5 41289-3) A/G Ratio (test code = 1759-0) 1.2 1.2-2.2 Bilirubin, Total (test code = 0.5 mg/dL 0.0-1.2 1975-2) Alkaline Phosphatase (test 112 IU/L 39-117 code = 6768-6) AST (SGOT) (test code = 21 IU/L 0-40 1920-8) ALT (SGPT) (test code = 31 IU/L 0-44 1742-6) [facility] Description: Comp. Metabolic Panel (14)2020-03-07 06:49:00 Test Item Value Reference Range Interpretation Comments Glucose (test code = 2345-7) 441 mg/dL 65-99 H BUN (test code = 3094-0) 52 mg/dL 6-24 H Creatinine (test code = 2.05 mg/dL 0.76-1.27 H 2160-0) eGFR If NonAfricn Am (test 38 mL/min/1.73 >59 L code = 64284-6) eGFR If Africn Am (test code = 44 mL/min/1.73 >59 L 80575-7) BUN/Creatinine Ratio (test 25 9-20 H code = 3097-3) Sodium (test code = 2951-2) 138 mmol/L 134-144 Potassium (test code = 2823-3) 5.4 mmol/L 3.5-5.2 H Chloride (test code = 2075-0) 96 mmol/L 96-106 Carbon Dioxide, Total (test 29 mmol/L 20-29 code = 2027-9) Calcium (test code = 95331-4) 9.2 mg/dL 8.7-10.2 Protein, Total (test code = 6.2 g/dL 6.0-8.5 2885-2) Albumin (test code = 1751-7) 3.4 g/dL 4.0-5.0 L Globulin, Total (test code = 2.8 g/dL 1.5-4.5 81400-4) A/G Ratio (test code = 1759-0) 1.2 1.2-2.2 Bilirubin, Total (test code = 0.5 mg/dL 0.0-1.2 1975-2) Alkaline Phosphatase (test 112 IU/L 39-117 code = 6768-6) AST (SGOT) (test code = 21 IU/L 0-40 1920-8) ALT (SGPT) (test code = 31 IU/L 0-44 1742-6) [id number] 07:17:11Tyshawn Serra MD 2019 7:47 AMIncision/DrainageDate/Time: 2019 [...] NoneType of anesthesia: NoneGrafts or Implan ts: [facility] A1c/Hemoglobin.total in [id number] 16:33:00 Test Item Value Reference Range Interpretation Comments Hemoglobin A1c (test code 13.0 % 4.8-5.6 H = 4548-4) . Prediabetes: 5. 7 - 6.4 Diabete s: >6.4 Glycemi c control for niall lts with diabetes: <7.0

P erforme d by:
[facility] ([facility])

[facility] Description: Hemoglobin A1c/Hemoglobin.total in Blood 2019-11-10 16:33:00 Test Item Value Reference Range Interpretation Comments Hemoglobin A1c (test code 13.0 % 4.8-5.6 H = 4548-4) . Prediabetes: 5. 7 - 6.4 Diabete s: >6.4 Glycemi c control for niall lts with diabetes: <7.0

P erforme d by:
[facility] ([facility])

[facility] Description: Hemoglobin A1c/Hemoglobin.total in Blood 2019-11-10 16:33:00 Test Item Value Reference Range Interpretation Comments Hemoglobin A1c (test code 13.0 % 4.8-5.6 H = 4548-4) . Prediabetes: 5. 7 - 6.4 Diabete s: >6.4 Glycemi c control for niall lts with diabetes: <7.0

P erforme d by:
[facility] ([place])

[facility] Description: Hemoglobin A1c/Hemoglobin.total in Blood 2019-11-10 16:33:00 Test Item Value Reference Range Interpretation Comments Hemoglobin A1c (test code 13.0 % 4.8-5.6 H = 4548-4) . Prediabetes: 5. 7 - 6.4 Diabete s: >6.4 Glycemi c control for niall lts with diabetes: <7.0

P erforme d by:
[facility] ([place])

[facility] Description: Hemoglobin A1c/Hemoglobin.total in Blood 2019-11-10 16:33:00 Test Item Value Reference Range Interpretation Comments Hemoglobin A1c (test code 13.0 % 4.8-5.6 H = 4548-4) . Prediabetes: 5. 7 - 6.4 Diabete s: >6.4 Glycemi c control for niall lts with diabetes: <7.0

P erforme d by:
[facility] ([place])

[facility] Description: Hemoglobin A1c/Hemoglobin.total in Blood 2019-11-10 16:33:00 Test Item Value Reference Range Interpretation Comments Hemoglobin A1c (test code 13.0 % 4.8-5.6 H = 4548-4) . Prediabetes: 5. 7 - 6.4 Diabete s: >6.4 Glycemi c control for niall lts with diabetes: <7.0

P erforme d by:
[facility] ([place])

[facility] Description: Hemoglobin A1c/Hemoglobin.total in Blood 2019-11-10 16:33:00 Test Item Value Reference Range Interpretation Comments Hemoglobin A1c (test code 13.0 % 4.8-5.6 H = 4548-4) . Prediabetes: 5. 7 - 6.4 Diabete s: >6.4 Glycemi c control for niall lts with diabetes: <7.0

P erforme d by:
[facility] ([place])

[facility] Description: Hemoglobin A1c/Hemoglobin.total in Blood 2019-11-10 16:33:00 Test Item Value Reference Range Interpretation Comments Hemoglobin A1c (test code 13.0 % 4.8-5.6 H = 4548-4) . Prediabetes: 5. 7 - 6.4 Diabete s: >6.4 Glycemi c control for niall lts with diabetes: <7.0

P erforme d by:
[facility] ([place])

[facility] Description: Hemoglobin A1c/Hemoglobin.total in Blood 2019-11-10 16:33:00 Test Item Value Reference Range Interpretation Comments Hemoglobin A1c (test code 13.0 % 4.8-5.6 H = 4548-4) . Prediabetes: 5. 7 - 6.4 Diabete s: >6.4 Glycemi c control for niall lts with diabetes: <7.0

P erforme d by:
[facility] ([place])

[facility] Description: Hemoglobin A1c/Hemoglobin.total in Blood 2019-11-10 16:33:00 Test Item Value Reference Range Interpretation Comments Hemoglobin A1c (test code 13.0 % 4.8-5.6 H = 4548-4) . Prediabetes: 5. 7 - 6.4 Diabete s: >6.4 Glycemi c control for niall lts with diabetes: <7.0

P erforme d by:
[facility] ([place])

[facility] Description: Hemoglobin A1c/Hemoglobin.total in Blood 2019-11-10 16:33:00 Test Item Value Reference Range Interpretation Comments Hemoglobin A1c (test code 13.0 % 4.8-5.6 H = 4548-4) . Prediabetes: 5. 7 - 6.4 Diabete s: >6.4 Glycemi c control for niall lts with diabetes: <7.0

P erforme d by:
[facility] ([place])

[facility] Description: Hemoglobin A1c/Hemoglobin.total in Blood 2019-11-10 16:33:00 Test Item Value Reference Range Interpretation Comments Hemoglobin A1c (test code 13.0 % 4.8-5.6 H = 4548-4) . Prediabetes: 5. 7 - 6.4 Diabete s: >6.4 Glycemi c control for niall lts with diabetes: <7.0

P erforme d by:
[facility] ([place])

[facility] Description: Hemoglobin A1c/Hemoglobin.total in Blood 2019-11-10 16:33:00 Test Item Value Reference Range Interpretation Comments Hemoglobin A1c (test code 13.0 % 4.8-5.6 H = 4548-4) . Prediabetes: 5. 7 - 6.4 Diabete s: >6.4 Glycemi c control for niall lts with diabetes: <7.0

P erforme d by:
[facility] ([place])

[facility] Description: Hemoglobin A1c/Hemoglobin.total in Blood 2019-11-10 16:33:00 Test Item Value Reference Range Interpretation Comments Hemoglobin A1c (test code 13.0 % 4.8-5.6 H = 4548-4) . Prediabetes: 5. 7 - 6.4 Diabete s: >6.4 Glycemi c control for niall lts with diabetes: <7.0

P erforme d by:
[facility] ([facility])

[facility] Description: Hemoglobin A1c/Hemoglobin.total in Blood 2019-11-10 16:33:00 Test Item Value Reference Range Interpretation Comments Hemoglobin A1c (test code 13.0 % 4.8-5.6 H = 4548-4) . Prediabetes: 5. 7 - 6.4 Diabete s: >6.4 Glycemi c control for niall lts with diabetes: <7.0

P erforme d by:
[facility] ([place])

[facility] Description: Hemoglobin A1c/Hemoglobin.total in Blood 2019-11-10 16:33:00 Test Item Value Reference Range Interpretation Comments Hemoglobin A1c (test code 13.0 % 4.8-5.6 H = 4548-4) . Prediabetes: 5. 7 - 6.4 Diabete s: >6.4 Glycemi c control for niall lts with diabetes: <7.0

P erforme d by:
[facility] ([place])

[facility] Description: Hemoglobin A1c/Hemoglobin.total in Blood 2019-11-10 16:33:00 Test Item Value Reference Range Interpretation Comments Hemoglobin A1c (test code 13.0 % 4.8-5.6 H = 4548-4) . Prediabetes: 5. 7 - 6.4 Diabete s: >6.4 Glycemi c control for niall lts with diabetes: <7.0

P erforme d by:
[facility] ([place])

[facility] Description: Hemoglobin A1c/Hemoglobin.total in Blood 2019-11-10 16:33:00 Test Item Value Reference Range Interpretation Comments Hemoglobin A1c (test code 13.0 % 4.8-5.6 H = 4548-4) . Prediabetes: 5. 7 - 6.4 Diabete s: >6.4 Glycemi c control for niall lts with diabetes: <7.0

P erforme d by:
[facility] ([place])

[facility] Description: Hemoglobin A1c/Hemoglobin.total in Blood 2019-11-10 16:33:00 Test Item Value Reference Range Interpretation Comments Hemoglobin A1c (test code 13.0 % 4.8-5.6 H = 4548-4) . Prediabetes: 5. 7 - 6.4 Diabete s: >6.4 Glycemi c control for niall lts with diabetes: <7.0

P erforme d by:
[facility] ([place])

[facility] Description: Hemoglobin A1c/Hemoglobin.total in Blood 2019-11-10 16:33:00 Test Item Value Reference Range Interpretation Comments Hemoglobin A1c (test code 13.0 % 4.8-5.6 H = 4548-4) . Prediabetes: 5. 7 - 6.4 Diabete s: >6.4 Glycemi c control for niall lts with diabetes: <7.0

P erforme d by:
[facility] ([place])

[facility] Description: Hemoglobin A1c/Hemoglobin.total in Blood 2019-11-10 16:33:00 Test Item Value Reference Range Interpretation Comments Hemoglobin A1c (test code 13.0 % 4.8-5.6 H = 4548-4) . Prediabetes: 5. 7 - 6.4 Diabete s: >6.4 Glycemi c control for niall lts with diabetes: <7.0

P erforme d by:
[facility] ([place])

[facility] Description: Hemoglobin A1c/Hemoglobin.total in Blood 2019-11-10 16:33:00 Test Item Value Reference Range Interpretation Comments Hemoglobin A1c (test code 13.0 % 4.8-5.6 H = 4548-4) . Prediabetes: 5. 7 - 6.4 Diabete s: >6.4 Glycemi c control for niall lts with diabetes: <7.0

P erforme d by:
[facility] ([place])

[facility] Description: Hemoglobin A1c/Hemoglobin.total in Blood 2019-11-10 16:33:00 Test Item Value Reference Range Interpretation Comments Hemoglobin A1c (test code 13.0 % 4.8-5.6 H = 4548-4) . Prediabetes: 5. 7 - 6.4 Diabete s: >6.4 Glycemi c control for niall lts with diabetes: <7.0

P erforme d by:
[facility] ([place])

[facility] Description: Hemoglobin A1c/Hemoglobin.total in Blood 2019-11-10 16:33:00 Test Item Value Reference Range Interpretation Comments Hemoglobin A1c (test code 13.0 % 4.8-5.6 H = 4548-4) . Prediabetes: 5. 7 - 6.4 Diabete s: >6.4 Glycemi c control for niall lts with diabetes: <7.0

P erforme d by:
[facility] ([place])

[facility] Description: Hemoglobin A1c/Hemoglobin.total in Blood 2019-11-10 16:33:00 Test Item Value Reference Range Interpretation Comments Hemoglobin A1c (test code 13.0 % 4.8-5.6 H = 4548-4) . Prediabetes: 5. 7 - 6.4 Diabete s: >6.4 Glycemi c control for niall lts with diabetes: <7.0

P erforme d by:
[facility] ([place])

[facility] Description: Hemoglobin A1c/Hemoglobin.total in Blood 2019-11-10 16:33:00 Test Item Value Reference Range Interpretation Comments Hemoglobin A1c (test code 13.0 % 4.8-5.6 H = 4548-4) . Prediabetes: 5. 7 - 6.4 Diabete s: >6.4 Glycemi c control for niall lts with diabetes: <7.0

P erforme d by:
[facility] ([facility])

[facility] Description: Hemoglobin A1c/Hemoglobin.total in Blood 2019-11-10 16:33:00 Test Item Value Reference Range Interpretation Comments Hemoglobin A1c (test code 13.0 % 4.8-5.6 H = 4548-4) . Prediabetes: 5. 7 - 6.4 Diabete s: >6.4 Glycemi c control for niall lts with diabetes: <7.0

P erforme d by:
[facility] ([facility])

[facility] Description: Comp. Metabolic Panel (14)2019-11-10 03:19:00 Test Item Value Reference Range Interpretation Comments Glucose (test code = 2345-7) 439 mg/dL 65-99 H BUN (test code = 3094-0) 49 mg/dL 6-24 H Creatinine (test code = 2.17 mg/dL 0.76-1.27 H 2160-0) eGFR If NonAfricn Am (test 35 mL/min/1.73 >59 L code = 63553-7) eGFR If Africn Am (test code = 41 mL/min/1.73 >59 L 07196-3) BUN/Creatinine Ratio (test 23 9-20 H code = 3097-3) Sodium (test code = 2951-2) 137 mmol/L 134-144 Potassium (test code = 2823-3) 4.9 mmol/L 3.5-5.2 Chloride (test code = 2075-0) 93 mmol/L 96-106 L Carbon Dioxide, Total (test 29 mmol/L 20-29 code = 8-9) Calcium (test code = 47760-3) 9.5 mg/dL 8.7-10.2 Protein, Total (test code = 6.5 g/dL 6.0-8.5 2885-2) Albumin (test code = 1751-7) 3.6 g/dL 4.0-5.0 L Globulin, Total (test code = 2.9 g/dL 1.5-4.5 19000-2) A/G Ratio (test code = 1759-0) 1.2 1.2-2.2 Bilirubin, Total (test code = 0.5 mg/dL 0.0-1.2 1975-2) Alkaline Phosphatase (test 103 IU/L 39-117 code = 6768-6) AST (SGOT) (test code = 20 IU/L 0-40 1920-8) ALT (SGPT) (test code = 30 IU/L 0-44 1742-6) [facility] Description: Lipid [id number] 03:19:00 Test Item Value Reference Range Interpretation Comments Cholesterol, Total (test code = 231 mg/dL 100-199 H 2093-3) Triglycerides (test code = 2571-8) 215 mg/dL 0-149 H HDL Cholesterol (test code = 34 mg/dL >39 L 5-9) VLDL Cholesterol Renuka (test code = 43 mg/dL 5-40 H 72695-8) LDL Cholesterol Calc (test code = 154 mg/dL 0-99 H 65205-1) Comment: (test code = 39989-9) [facility] Description: Comp. Metabolic Panel (14)2019-11-10 03:19:00 Test Item Value Reference Range Interpretation Comments Glucose (test code = 2345-7) 439 mg/dL 65-99 H BUN (test code = 3094-0) 49 mg/dL 6-24 H Creatinine (test code = 2.17 mg/dL 0.76-1.27 H 2160-0) eGFR If NonAfricn Am (test 35 mL/min/1.73 >59 L code = 66716-2) eGFR If Africn Am (test code = 41 mL/min/1.73 >59 L 71638-9) BUN/Creatinine Ratio (test 23 9-20 H code = 3097-3) Sodium (test code = 2951-2) 137 mmol/L 134-144 Potassium (test code = 2823-3) 4.9 mmol/L 3.5-5.2 Chloride (test code = 2075-0) 93 mmol/L 96-106 L Carbon Dioxide, Total (test 29 mmol/L 20-29 code = 8-9) Calcium (test code = 36662-7) 9.5 mg/dL 8.7-10.2 Protein, Total (test code = 6.5 g/dL 6.0-8.5 2885-2) Albumin (test code = 1751-7) 3.6 g/dL 4.0-5.0 L Globulin, Total (test code = 2.9 g/dL 1.5-4.5 83642-3) A/G Ratio (test code = 1759-0) 1.2 1.2-2.2 Bilirubin, Total (test code = 0.5 mg/dL 0.0-1.2 1974-2) Alkaline Phosphatase (test 103 IU/L 39-117 code = 6768-6) AST (SGOT) (test code = 20 IU/L 0-40 1920-8) ALT (SGPT) (test code = 30 IU/L 0-44 1742-6) [facility] Description: Lipid [id number] 03:19:00 Test Item Value Reference Range Interpretation Comments Cholesterol, Total (test code = 231 mg/dL 100-199 H 2092-3) Triglycerides (test code = 2571-8) 215 mg/dL 0-149 H HDL Cholesterol (test code = 34 mg/dL >39 L 2085-9) VLDL Cholesterol Renuka (test code = 43 mg/dL 5-40 H 18831-0) LDL Cholesterol Calc (test code = 154 mg/dL 0-99 H 85917-5) Comment: (test code = 00832-1) [facility]: [facility] (14)2019-11-10 03:19:00 Test Item Value Reference Range Interpretation Comments Glucose (test code = 2345-7) 439 mg/dL 65-99 H BUN (test code = 3094-0) 49 mg/dL 6-24 H Creatinine (test code = 2.17 mg/dL 0.76-1.27 H 2160-0) eGFR If NonAfricn Am (test 35 mL/min/1.73 >59 L code = 63038-1) eGFR If Africn Am (test code = 41 mL/min/1.73 >59 L 18596-7) BUN/Creatinine Ratio (test 23 9-20 H code = 3097-3) Sodium (test code = 2951-2) 137 mmol/L 134-144 Potassium (test code = 2823-3) 4.9 mmol/L 3.5-5.2 Chloride (test code = 2075-0) 93 mmol/L 96-106 L Carbon Dioxide, Total (test 29 mmol/L 20-29 code = 8-9) Calcium (test code = 49191-0) 9.5 mg/dL 8.7-10.2 Protein, Total (test code = 6.5 g/dL 6.0-8.5 2885-2) Albumin (test code = 1751-7) 3.6 g/dL 4.0-5.0 L Globulin, Total (test code = 2.9 g/dL 1.5-4.5 94651-5) A/G Ratio (test code = 1759-0) 1.2 1.2-2.2 Bilirubin, Total (test code = 0.5 mg/dL 0.0-1.2 1975-2) Alkaline Phosphatase (test 103 IU/L 39-117 code = 6768-6) AST (SGOT) (test code = 20 IU/L 0-40 1920-8) ALT (SGPT) (test code = 30 IU/L 0-44 1742-6) [facility] Description: Lipid [id number] 03:19:00 Test Item Value Reference Range Interpretation Comments Cholesterol, Total (test code = 231 mg/dL 100-199 H 3-3) Triglycerides (test code = 2571-8) 215 mg/dL 0-149 H HDL Cholesterol (test code = 34 mg/dL >39 L 2084-9) VLDL Cholesterol Renuka (test code = 43 mg/dL 5-40 H 45385-9) LDL Cholesterol Calc (test code = 154 mg/dL 0-99 H 43446-5) Comment: (test code = 83331-8) [facility] Description: Comp. Metabolic Panel (14)2019-11-10 03:19:00 Test Item Value Reference Range Interpretation Comments Glucose (test code = 2345-7) 439 mg/dL 65-99 H BUN (test code = 3094-0) 49 mg/dL 6-24 H Creatinine (test code = 2.17 mg/dL 0.76-1.27 H 2160-0) eGFR If NonAfricn Am (test 35 mL/min/1.73 >59 L code = 28937-6) eGFR If Africn Am (test code = 41 mL/min/1.73 >59 L 31506-2) BUN/Creatinine Ratio (test 23 9-20 H code = 3097-3) Sodium (test code = 2951-2) 137 mmol/L 134-144 Potassium (test code = 2823-3) 4.9 mmol/L 3.5-5.2 Chloride (test code = 2075-0) 93 mmol/L 96-106 L Carbon Dioxide, Total (test 29 mmol/L 20-29 code = 2027-9) Calcium (test code = 91245-3) 9.5 mg/dL 8.7-10.2 Protein, Total (test code = 6.5 g/dL 6.0-8.5 2885-2) Albumin (test code = 1751-7) 3.6 g/dL 4.0-5.0 L Globulin, Total (test code = 2.9 g/dL 1.5-4.5 36275-6) A/G Ratio (test code = 1759-0) 1.2 1.2-2.2 Bilirubin, Total (test code = 0.5 mg/dL 0.0-1.2 1974-2) Alkaline Phosphatase (test 103 IU/L 39-117 code = 6768-6) AST (SGOT) (test code = 20 IU/L 0-40 1920-8) ALT (SGPT) (test code = 30 IU/L 0-44 1742-6) [facility] Description: Lipid [id number] 03:19:00 Test Item Value Reference Range Interpretation Comments Cholesterol, Total (test code = 231 mg/dL 100-199 H 2092-3) Triglycerides (test code = 2571-8) 215 mg/dL 0-149 H HDL Cholesterol (test code = 34 mg/dL >39 L 2084-9) VLDL Cholesterol Renuka (test code = 43 mg/dL 5-40 H 19650-7) LDL Cholesterol Calc (test code = 154 mg/dL 0-99 H 90632-2) Comment: (test code = 11305-1) [facility] Description: Comp. Metabolic Panel ()2019-11-10 03:19:00 Test Item Value Reference Range Interpretation Comments Glucose (test code = 2345-7) 439 mg/dL 65-99 H BUN (test code = 3094-0) 49 mg/dL 6-24 H Creatinine (test code = 2.17 mg/dL 0.76-1.27 H 2160-0) eGFR If NonAfricn Am (test 35 mL/min/1.73 >59 L code = 39132-0) eGFR If Africn Am (test code = 41 mL/min/1.73 >59 L 37321-8) BUN/Creatinine Ratio (test 23 9-20 H code = 3097-3) Sodium (test code = 2951-2) 137 mmol/L 134-144 Potassium (test code = 2823-3) 4.9 mmol/L 3.5-5.2 Chloride (test code = 2075-0) 93 mmol/L 96-106 L Carbon Dioxide, Total (test 29 mmol/L 20-29 code = 2027-9) Calcium (test code = 66907-0) 9.5 mg/dL 8.7-10.2 Protein, Total (test code = 6.5 g/dL 6.0-8.5 2885-2) Albumin (test code = 1751-7) 3.6 g/dL 4.0-5.0 L Globulin, Total (test code = 2.9 g/dL 1.5-4.5 84527-9) A/G Ratio (test code = 1759-0) 1.2 1.2-2.2 Bilirubin, Total (test code = 0.5 mg/dL 0.0-1.2 1975-2) Alkaline Phosphatase (test 103 IU/L 39-117 code = 6768-6) AST (SGOT) (test code = 20 IU/L 0-40 1920-8) ALT (SGPT) (test code = 30 IU/L 0-44 1742-6) [facility] Description: Lipid [id number] 03:19:00 Test Item Value Reference Range Interpretation Comments Cholesterol, Total (test code = 231 mg/dL 100-199 H 2093-3) Triglycerides (test code = 2571-8) 215 mg/dL 0-149 H HDL Cholesterol (test code = 34 mg/dL >39 L 5-9) VLDL Cholesterol Renuka (test code = 43 mg/dL 5-40 H 25422-6) LDL Cholesterol Calc (test code = 154 mg/dL 0-99 H 46256-2) Comment: (test code = 69750-2) [facility] Description: Comp. Metabolic Panel (14)2019-11-10 03:19:00 Test Item Value Reference Range Interpretation Comments Glucose (test code = 2345-7) 439 mg/dL 65-99 H BUN (test code = 3094-0) 49 mg/dL 6-24 H Creatinine (test code = 2.17 mg/dL 0.76-1.27 H 2160-0) eGFR If NonAfricn Am (test 35 mL/min/1.73 >59 L code = 11993-0) eGFR If Africn Am (test code = 41 mL/min/1.73 >59 L 84940-3) BUN/Creatinine Ratio (test 23 9-20 H code = 3097-3) Sodium (test code = 2951-2) 137 mmol/L 134-144 Potassium (test code = 2823-3) 4.9 mmol/L 3.5-5.2 Chloride (test code = 2075-0) 93 mmol/L 96-106 L Carbon Dioxide, Total (test 29 mmol/L 20-29 code = 2028-9) Calcium (test code = 89550-7) 9.5 mg/dL 8.7-10.2 Protein, Total (test code = 6.5 g/dL 6.0-8.5 2885-2) Albumin (test code = 1751-7) 3.6 g/dL 4.0-5.0 L Globulin, Total (test code = 2.9 g/dL 1.5-4.5 56548-0) A/G Ratio (test code = 1759-0) 1.2 1.2-2.2 Bilirubin, Total (test code = 0.5 mg/dL 0.0-1.2 1975-2) Alkaline Phosphatase (test 103 IU/L 39-117 code = 6768-6) AST (SGOT) (test code = 20 IU/L 0-40 1920-8) ALT (SGPT) (test code = 30 IU/L 0-44 1742-6) [facility] Description: Lipid [id number] 03:19:00 Test Item Value Reference Range Interpretation Comments Cholesterol, Total (test code = 231 mg/dL 100-199 H 2093-3) Triglycerides (test code = 2571-8) 215 mg/dL 0-149 H HDL Cholesterol (test code = 34 mg/dL >39 L 5-9) VLDL Cholesterol Renuka (test code = 43 mg/dL 5-40 H 78106-4) LDL Cholesterol Calc (test code = 154 mg/dL 0-99 H 74785-7) Comment: (test code = 81664-0) [facility] Description: Comp. Metabolic Panel (14)2019-11-10 03:19:00 Test Item Value Reference Range Interpretation Comments Glucose (test code = 2345-7) 439 mg/dL 65-99 H BUN (test code = 3094-0) 49 mg/dL 6-24 H Creatinine (test code = 2.17 mg/dL 0.76-1.27 H 2160-0) eGFR If NonAfricn Am (test 35 mL/min/1.73 >59 L code = 37254-7) eGFR If Africn Am (test code = 41 mL/min/1.73 >59 L 31882-2) BUN/Creatinine Ratio (test 23 9-20 H code = 3097-3) Sodium (test code = 2951-2) 137 mmol/L 134-144 Potassium (test code = 2823-3) 4.9 mmol/L 3.5-5.2 Chloride (test code = 2075-0) 93 mmol/L 96-106 L Carbon Dioxide, Total (test 29 mmol/L 20-29 code = 2028-9) Calcium (test code = 69490-3) 9.5 mg/dL 8.7-10.2 Protein, Total (test code = 6.5 g/dL 6.0-8.5 2885-2) Albumin (test code = 1751-7) 3.6 g/dL 4.0-5.0 L Globulin, Total (test code = 2.9 g/dL 1.5-4.5 90751-6) A/G Ratio (test code = 1759-0) 1.2 1.2-2.2 Bilirubin, Total (test code = 0.5 mg/dL 0.0-1.2 1975-2) Alkaline Phosphatase (test 103 IU/L 39-117 code = 6768-6) AST (SGOT) (test code = 20 IU/L 0-40 1920-8) ALT (SGPT) (test code = 30 IU/L 0-44 1742-6) [facility] Description: Lipid [id number] 03:19:00 Test Item Value Reference Range Interpretation Comments Cholesterol, Total (test code = 231 mg/dL 100-199 H 2092-3) Triglycerides (test code = 2571-8) 215 mg/dL 0-149 H HDL Cholesterol (test code = 34 mg/dL >39 L 2084-9) VLDL Cholesterol Renuka (test code = 43 mg/dL 5-40 H 94149-0) LDL Cholesterol Calc (test code = 154 mg/dL 0-99 H 30480-4) Comment: (test code = 98482-4) [facility] Description: Comp. Metabolic Panel (14)2019-11-10 03:19:00 Test Item Value Reference Range Interpretation Comments Glucose (test code = 2345-7) 439 mg/dL 65-99 H BUN (test code = 3094-0) 49 mg/dL 6-24 H Creatinine (test code = 2.17 mg/dL 0.76-1.27 H 2160-0) eGFR If NonAfricn Am (test 35 mL/min/1.73 >59 L code = 59797-5) eGFR If Africn Am (test code = 41 mL/min/1.73 >59 L 67735-5) BUN/Creatinine Ratio (test 23 9-20 H code = 3097-3) Sodium (test code = 2951-2) 137 mmol/L 134-144 Potassium (test code = 2823-3) 4.9 mmol/L 3.5-5.2 Chloride (test code = 2075-0) 93 mmol/L 96-106 L Carbon Dioxide, Total (test 29 mmol/L 20-29 code = 8-9) Calcium (test code = 57367-9) 9.5 mg/dL 8.7-10.2 Protein, Total (test code = 6.5 g/dL 6.0-8.5 2885-2) Albumin (test code = 1751-7) 3.6 g/dL 4.0-5.0 L Globulin, Total (test code = 2.9 g/dL 1.5-4.5 20610-2) A/G Ratio (test code = 1759-0) 1.2 1.2-2.2 Bilirubin, Total (test code = 0.5 mg/dL 0.0-1.2 1975-2) Alkaline Phosphatase (test 103 IU/L 39-117 code = 6768-6) AST (SGOT) (test code = 20 IU/L 0-40 1920-8) ALT (SGPT) (test code = 30 IU/L 0-44 1742-6) [facility] Description: Lipid [id number] 03:19:00 Test Item Value Reference Range Interpretation Comments Cholesterol, Total (test code = 231 mg/dL 100-199 H 2092-3) Triglycerides (test code = 2571-8) 215 mg/dL 0-149 H HDL Cholesterol (test code = 34 mg/dL >39 L 2084-9) VLDL Cholesterol Renuka (test code = 43 mg/dL 5-40 H 80016-5) LDL Cholesterol Calc (test code = 154 mg/dL 0-99 H 82966-4) Comment: (test code = 69087-4) [facility] Description: Comp. Metabolic Panel (14)2019-11-10 03:19:00 Test Item Value Reference Range Interpretation Comments Glucose (test code = 2345-7) 439 mg/dL 65-99 H BUN (test code = 3094-0) 49 mg/dL 6-24 H Creatinine (test code = 2.17 mg/dL 0.76-1.27 H 2160-0) eGFR If NonAfricn Am (test 35 mL/min/1.73 >59 L code = 53810-5) eGFR If Africn Am (test code = 41 mL/min/1.73 >59 L 99862-1) BUN/Creatinine Ratio (test 23 9-20 H code = 3097-3) Sodium (test code = 2951-2) 137 mmol/L 134-144 Potassium (test code = 2823-3) 4.9 mmol/L 3.5-5.2 Chloride (test code = 2075-0) 93 mmol/L 96-106 L Carbon Dioxide, Total (test 29 mmol/L 20-29 code = 8-9) Calcium (test code = 27082-4) 9.5 mg/dL 8.7-10.2 Protein, Total (test code = 6.5 g/dL 6.0-8.5 2885-2) Albumin (test code = 1751-7) 3.6 g/dL 4.0-5.0 L Globulin, Total (test code = 2.9 g/dL 1.5-4.5 81119-1) A/G Ratio (test code = 1759-0) 1.2 1.2-2.2 Bilirubin, Total (test code = 0.5 mg/dL 0.0-1.2 1975-2) Alkaline Phosphatase (test 103 IU/L 39-117 code = 6768-6) AST (SGOT) (test code = 20 IU/L 0-40 1920-8) ALT (SGPT) (test code = 30 IU/L 0-44 1742-6) [facility] Description: Lipid [id number] 03:19:00 Test Item Value Reference Range Interpretation Comments Cholesterol, Total (test code = 231 mg/dL 100-199 H 2093-3) Triglycerides (test code = 2571-8) 215 mg/dL 0-149 H HDL Cholesterol (test code = 34 mg/dL >39 L 2084-9) VLDL Cholesterol Renuka (test code = 43 mg/dL 5-40 H 01515-1) LDL Cholesterol Calc (test code = 154 mg/dL 0-99 H 53187-6) Comment: (test code = 03359-5) [facility] Description: Comp. Metabolic Panel ()2019-11-10 03:19:00 Test Item Value Reference Range Interpretation Comments Glucose (test code = 2345-7) 439 mg/dL 65-99 H BUN (test code = 3094-0) 49 mg/dL 6-24 H Creatinine (test code = 2.17 mg/dL 0.76-1.27 H 2160-0) eGFR If NonAfricn Am (test 35 mL/min/1.73 >59 L code = 33425-0) eGFR If Africn Am (test code = 41 mL/min/1.73 >59 L 75752-5) BUN/Creatinine Ratio (test 23 9-20 H code = 3097-3) Sodium (test code = 2951-2) 137 mmol/L 134-144 Potassium (test code = 2823-3) 4.9 mmol/L 3.5-5.2 Chloride (test code = 2075-0) 93 mmol/L 96-106 L Carbon Dioxide, Total (test 29 mmol/L 20-29 code = 2027-9) Calcium (test code = 88989-8) 9.5 mg/dL 8.7-10.2 Protein, Total (test code = 6.5 g/dL 6.0-8.5 2885-2) Albumin (test code = 1751-7) 3.6 g/dL 4.0-5.0 L Globulin, Total (test code = 2.9 g/dL 1.5-4.5 87182-4) A/G Ratio (test code = 1759-0) 1.2 1.2-2.2 Bilirubin, Total (test code = 0.5 mg/dL 0.0-1.2 1974-2) Alkaline Phosphatase (test 103 IU/L 39-117 code = 6768-6) AST (SGOT) (test code = 20 IU/L 0-40 1920-8) ALT (SGPT) (test code = 30 IU/L 0-44 1742-6) [facility] Description: Lipid [id number] 03:19:00 Test Item Value Reference Range Interpretation Comments Cholesterol, Total (test code = 231 mg/dL 100-199 H 2093-3) Triglycerides (test code = 2571-8) 215 mg/dL 0-149 H HDL Cholesterol (test code = 34 mg/dL >39 L 2085-9) VLDL Cholesterol Renuka (test code = 43 mg/dL 5-40 H 46528-2) LDL Cholesterol Calc (test code = 154 mg/dL 0-99 H 58046-4) Comment: (test code = 67176-3) [facility] Description: Comp. Metabolic Panel (14)2019-11-10 03:19:00 Test Item Value Reference Range Interpretation Comments Glucose (test code = 2345-7) 439 mg/dL 65-99 H BUN (test code = 3094-0) 49 mg/dL 6-24 H Creatinine (test code = 2.17 mg/dL 0.76-1.27 H 2160-0) eGFR If NonAfricn Am (test 35 mL/min/1.73 >59 L code = 31972-0) eGFR If Africn Am (test code = 41 mL/min/1.73 >59 L 71919-6) BUN/Creatinine Ratio (test 23 9-20 H code = 3097-3) Sodium (test code = 2951-2) 137 mmol/L 134-144 Potassium (test code = 2823-3) 4.9 mmol/L 3.5-5.2 Chloride (test code = 2075-0) 93 mmol/L 96-106 L Carbon Dioxide, Total (test 29 mmol/L 20-29 code = 8-9) Calcium (test code = 51762-7) 9.5 mg/dL 8.7-10.2 Protein, Total (test code = 6.5 g/dL 6.0-8.5 2885-2) Albumin (test code = 1751-7) 3.6 g/dL 4.0-5.0 L Globulin, Total (test code = 2.9 g/dL 1.5-4.5 33987-0) A/G Ratio (test code = 1759-0) 1.2 1.2-2.2 Bilirubin, Total (test code = 0.5 mg/dL 0.0-1.2 1975-2) Alkaline Phosphatase (test 103 IU/L 39-117 code = 6768-6) AST (SGOT) (test code = 20 IU/L 0-40 1920-8) ALT (SGPT) (test code = 30 IU/L 0-44 1742-6) Prox[facility] Description: Lipid [id number] 03:19:00 Test Item Value Reference Range Interpretation Comments Cholesterol, Total (test code = 231 mg/dL 100-199 H 2092-3) Triglycerides (test code = 2571-8) 215 mg/dL 0-149 H HDL Cholesterol (test code = 34 mg/dL >39 L 2084-9) VLDL Cholesterol Renuka (test code = 43 mg/dL 5-40 H 32975-8) LDL Cholesterol Calc (test code = 154 mg/dL 0-99 H 69873-5) Comment: (test code = 65468-9) Proxible Description: Comp. Metabolic Panel ()2019-11-10 03:19:00 Test Item Value Reference Range Interpretation Comments Glucose (test code = 2345-7) 439 mg/dL 65-99 H BUN (test code = 3094-0) 49 mg/dL 6-24 H Creatinine (test code = 2.17 mg/dL 0.76-1.27 H 2160-0) eGFR If NonAfricn Am (test 35 mL/min/1.73 >59 L code = 65777-0) eGFR If Africn Am (test code = 41 mL/min/1.73 >59 L 32506-0) BUN/Creatinine Ratio (test 23 9-20 H code = 3097-3) Sodium (test code = 2951-2) 137 mmol/L 134-144 Potassium (test code = 2823-3) 4.9 mmol/L 3.5-5.2 Chloride (test code = 2075-0) 93 mmol/L 96-106 L Carbon Dioxide, Total (test 29 mmol/L 20-29 code = 8-9) Calcium (test code = 05587-1) 9.5 mg/dL 8.7-10.2 Protein, Total (test code = 6.5 g/dL 6.0-8.5 2885-2) Albumin (test code = 1751-7) 3.6 g/dL 4.0-5.0 L Globulin, Total (test code = 2.9 g/dL 1.5-4.5 20174-4) A/G Ratio (test code = 1759-0) 1.2 1.2-2.2 Bilirubin, Total (test code = 0.5 mg/dL 0.0-1.2 1975-2) Alkaline Phosphatase (test 103 IU/L 39-117 code = 6768-6) AST (SGOT) (test code = 20 IU/L 0-40 1920-8) ALT (SGPT) (test code = 30 IU/L 0-44 1742-6) [facility]: Lipid [id number] 03:19:00 Test Item Value Reference Range Interpretation Comments Cholesterol, Total (test code = 231 mg/dL 100-199 H 2092-3) Triglycerides (test code = 2571-8) 215 mg/dL 0-149 H HDL Cholesterol (test code = 34 mg/dL >39 L 5-9) VLDL Cholesterol Renuka (test code = 43 mg/dL 5-40 H 44845-3) LDL Cholesterol Calc (test code = 154 mg/dL 0-99 H 32136-7) Comment: (test code = 32546-9) [facility]: Comp. Metabolic Panel (14)2019-11-10 03:19:00 Test Item Value Reference Range Interpretation Comments Glucose (test code = 2345-7) 439 mg/dL 65-99 H BUN (test code = 3094-0) 49 mg/dL 6-24 H Creatinine (test code = 2.17 mg/dL 0.76-1.27 H 2160-0) eGFR If NonAfricn Am (test 35 mL/min/1.73 >59 L code = 79686-5) eGFR If Africn Am (test code = 41 mL/min/1.73 >59 L 12685-0) BUN/Creatinine Ratio (test 23 9-20 H code = 3097-3) Sodium (test code = 2951-2) 137 mmol/L 134-144 Potassium (test code = 2823-3) 4.9 mmol/L 3.5-5.2 Chloride (test code = 2075-0) 93 mmol/L 96-106 L Carbon Dioxide, Total (test 29 mmol/L 20-29 code = 2027-9) Calcium (test code = 27911-9) 9.5 mg/dL 8.7-10.2 Protein, Total (test code = 6.5 g/dL 6.0-8.5 2885-2) Albumin (test code = 1751-7) 3.6 g/dL 4.0-5.0 L Globulin, Total (test code = 2.9 g/dL 1.5-4.5 78456-1) A/G Ratio (test code = 1759-0) 1.2 1.2-2.2 Bilirubin, Total (test code = 0.5 mg/dL 0.0-1.2 1975-2) Alkaline Phosphatase (test 103 IU/L 39-117 code = 6768-6) AST (SGOT) (test code = 20 IU/L 0-40 1920-8) ALT (SGPT) (test code = 30 IU/L 0-44 1742-6) [facility] Description: Lipid [id number] 03:19:00 Test Item Value Reference Range Interpretation Comments Cholesterol, Total (test code = 231 mg/dL 100-199 H 2092-3) Triglycerides (test code = 2571-8) 215 mg/dL 0-149 H HDL Cholesterol (test code = 34 mg/dL >39 L 2084-9) VLDL Cholesterol Renuka (test code = 43 mg/dL 5-40 H 96088-2) LDL Cholesterol Calc (test code = 154 mg/dL 0-99 H 10090-0) Comment: (test code = 91026-9) [facility] Description: Comp. Metabolic Panel ()2019-11-10 03:19:00 Test Item Value Reference Range Interpretation Comments Glucose (test code = 2345-7) 439 mg/dL 65-99 H BUN (test code = 3094-0) 49 mg/dL 6-24 H Creatinine (test code = 2.17 mg/dL 0.76-1.27 H 2160-0) eGFR If NonAfricn Am (test 35 mL/min/1.73 >59 L code = 86296-5) eGFR If Africn Am (test code = 41 mL/min/1.73 >59 L 44107-3) BUN/Creatinine Ratio (test 23 9-20 H code = 3097-3) Sodium (test code = 2951-2) 137 mmol/L 134-144 Potassium (test code = 2823-3) 4.9 mmol/L 3.5-5.2 Chloride (test code = 2075-0) 93 mmol/L 96-106 L Carbon Dioxide, Total (test 29 mmol/L 20-29 code = 2028-9) Calcium (test code = 64996-9) 9.5 mg/dL 8.7-10.2 Protein, Total (test code = 6.5 g/dL 6.0-8.5 2885-2) Albumin (test code = 1751-7) 3.6 g/dL 4.0-5.0 L Globulin, Total (test code = 2.9 g/dL 1.5-4.5 85546-2) A/G Ratio (test code = 1759-0) 1.2 1.2-2.2 Bilirubin, Total (test code = 0.5 mg/dL 0.0-1.2 1975-2) Alkaline Phosphatase (test 103 IU/L 39-117 code = 6768-6) AST (SGOT) (test code = 20 IU/L 0-40 1920-8) ALT (SGPT) (test code = 30 IU/L 0-44 1742-6) [facility] Description: Lipid [id number] 03:19:00 Test Item Value Reference Range Interpretation Comments Cholesterol, Total (test code = 231 mg/dL 100-199 H 2093-3) Triglycerides (test code = 2571-8) 215 mg/dL 0-149 H HDL Cholesterol (test code = 34 mg/dL >39 L 5-9) VLDL Cholesterol Renuka (test code = 43 mg/dL 5-40 H 36614-5) LDL Cholesterol Calc (test code = 154 mg/dL 0-99 H 63612-5) Comment: (test code = 15528-5) [facility] Description: Comp. Metabolic Panel (14)2019-11-10 03:19:00 Test Item Value Reference Range Interpretation Comments Glucose (test code = 2345-7) 439 mg/dL 65-99 H BUN (test code = 3094-0) 49 mg/dL 6-24 H Creatinine (test code = 2.17 mg/dL 0.76-1.27 H 2160-0) eGFR If NonAfricn Am (test 35 mL/min/1.73 >59 L code = 76778-3) eGFR If Africn Am (test code = 41 mL/min/1.73 >59 L 91023-2) BUN/Creatinine Ratio (test 23 9-20 H code = 3097-3) Sodium (test code = 2951-2) 137 mmol/L 134-144 Potassium (test code = 2823-3) 4.9 mmol/L 3.5-5.2 Chloride (test code = 2075-0) 93 mmol/L 96-106 L Carbon Dioxide, Total (test 29 mmol/L 20-29 code = 8-9) Calcium (test code = 52283-5) 9.5 mg/dL 8.7-10.2 Protein, Total (test code = 6.5 g/dL 6.0-8.5 2885-2) Albumin (test code = 1751-7) 3.6 g/dL 4.0-5.0 L Globulin, Total (test code = 2.9 g/dL 1.5-4.5 07829-8) A/G Ratio (test code = 1759-0) 1.2 1.2-2.2 Bilirubin, Total (test code = 0.5 mg/dL 0.0-1.2 1974-2) Alkaline Phosphatase (test 103 IU/L 39-117 code = 6768-6) AST (SGOT) (test code = 20 IU/L 0-40 1920-8) ALT (SGPT) (test code = 30 IU/L 0-44 1742-6) [facility] Description: Lipid [id number] 03:19:00 Test Item Value Reference Range Interpretation Comments Cholesterol, Total (test code = 231 mg/dL 100-199 H 2092-3) Triglycerides (test code = 2571-8) 215 mg/dL 0-149 H HDL Cholesterol (test code = 34 mg/dL >39 L 2084-9) VLDL Cholesterol Renuka (test code = 43 mg/dL 5-40 H 64698-1) LDL Cholesterol Calc (test code = 154 mg/dL 0-99 H 80796-7) Comment: (test code = 75410-9) [facility]: [facility] (14)2019-11-10 03:19:00 Test Item Value Reference Range Interpretation Comments Glucose (test code = 2345-7) 439 mg/dL 65-99 H BUN (test code = 3094-0) 49 mg/dL 6-24 H Creatinine (test code = 2.17 mg/dL 0.76-1.27 H 2160-0) eGFR If NonAfricn Am (test 35 mL/min/1.73 >59 L code = 29980-1) eGFR If Africn Am (test code = 41 mL/min/1.73 >59 L 87678-7) BUN/Creatinine Ratio (test 23 9-20 H code = 3097-3) Sodium (test code = 2951-2) 137 mmol/L 134-144 Potassium (test code = 2823-3) 4.9 mmol/L 3.5-5.2 Chloride (test code = 2075-0) 93 mmol/L 96-106 L Carbon Dioxide, Total (test 29 mmol/L 20-29 code = 2027-9) Calcium (test code = 21515-9) 9.5 mg/dL 8.7-10.2 Protein, Total (test code = 6.5 g/dL 6.0-8.5 2885-2) Albumin (test code = 1751-7) 3.6 g/dL 4.0-5.0 L Globulin, Total (test code = 2.9 g/dL 1.5-4.5 40296-2) A/G Ratio (test code = 1759-0) 1.2 1.2-2.2 Bilirubin, Total (test code = 0.5 mg/dL 0.0-1.2 1975-2) Alkaline Phosphatase (test 103 IU/L 39-117 code = 6768-6) AST (SGOT) (test code = 20 IU/L 0-40 1920-8) ALT (SGPT) (test code = 30 IU/L 0-44 1742-6) [facility] Description: Lipid [id number] 03:19:00 Test Item Value Reference Range Interpretation Comments Cholesterol, Total (test code = 231 mg/dL 100-199 H 3-3) Triglycerides (test code = 2571-8) 215 mg/dL 0-149 H HDL Cholesterol (test code = 34 mg/dL >39 L 2084-9) VLDL Cholesterol Renuka (test code = 43 mg/dL 5-40 H 44863-7) LDL Cholesterol Calc (test code = 154 mg/dL 0-99 H 67588-5) Comment: (test code = 21822-2) [facility] Description: Comp. Metabolic Panel (14)2019-11-10 03:19:00 Test Item Value Reference Range Interpretation Comments Glucose (test code = 2345-7) 439 mg/dL 65-99 H BUN (test code = 3094-0) 49 mg/dL 6-24 H Creatinine (test code = 2.17 mg/dL 0.76-1.27 H 2160-0) eGFR If NonAfricn Am (test 35 mL/min/1.73 >59 L code = 31128-1) eGFR If Africn Am (test code = 41 mL/min/1.73 >59 L 11785-9) BUN/Creatinine Ratio (test 23 9-20 H code = 3097-3) Sodium (test code = 2951-2) 137 mmol/L 134-144 Potassium (test code = 2823-3) 4.9 mmol/L 3.5-5.2 Chloride (test code = 2075-0) 93 mmol/L 96-106 L Carbon Dioxide, Total (test 29 mmol/L 20-29 code = 2027-9) Calcium (test code = 42379-8) 9.5 mg/dL 8.7-10.2 Protein, Total (test code = 6.5 g/dL 6.0-8.5 2885-2) Albumin (test code = 1751-7) 3.6 g/dL 4.0-5.0 L Globulin, Total (test code = 2.9 g/dL 1.5-4.5 40541-1) A/G Ratio (test code = 1759-0) 1.2 1.2-2.2 Bilirubin, Total (test code = 0.5 mg/dL 0.0-1.2 1974-2) Alkaline Phosphatase (test 103 IU/L 39-117 code = 6768-6) AST (SGOT) (test code = 20 IU/L 0-40 1920-8) ALT (SGPT) (test code = 30 IU/L 0-44 1742-6) [facility]: Lipid [id number] 03:19:00 Test Item Value Reference Range Interpretation Comments Cholesterol, Total (test code = 231 mg/dL 100-199 H 2092-3) Triglycerides (test code = 2571-8) 215 mg/dL 0-149 H HDL Cholesterol (test code = 34 mg/dL >39 L 2084-9) VLDL Cholesterol Renuka (test code = 43 mg/dL 5-40 H 98368-3) LDL Cholesterol Calc (test code = 154 mg/dL 0-99 H 88226-3) Comment: (test code = 26227-1) [facility]: Comp. [facility]abolic Panel ()2019-11-10 03:19:00 Test Item Value Reference Range Interpretation Comments Glucose (test code = 2345-7) 439 mg/dL 65-99 H BUN (test code = 3094-0) 49 mg/dL 6-24 H Creatinine (test code = 2.17 mg/dL 0.76-1.27 H 2160-0) eGFR If NonAfricn Am (test 35 mL/min/1.73 >59 L code = 97514-5) eGFR If Africn Am (test code = 41 mL/min/1.73 >59 L 35693-6) BUN/Creatinine Ratio (test 23 9-20 H code = 3097-3) Sodium (test code = 2951-2) 137 mmol/L 134-144 Potassium (test code = 2823-3) 4.9 mmol/L 3.5-5.2 Chloride (test code = 2075-0) 93 mmol/L 96-106 L Carbon Dioxide, Total (test 29 mmol/L 20-29 code = 2027-9) Calcium (test code = 95836-2) 9.5 mg/dL 8.7-10.2 Protein, Total (test code = 6.5 g/dL 6.0-8.5 2885-2) Albumin (test code = 1751-7) 3.6 g/dL 4.0-5.0 L Globulin, Total (test code = 2.9 g/dL 1.5-4.5 05666-2) A/G Ratio (test code = 1759-0) 1.2 1.2-2.2 Bilirubin, Total (test code = 0.5 mg/dL 0.0-1.2 1975-2) Alkaline Phosphatase (test 103 IU/L 39-117 code = 6768-6) AST (SGOT) (test code = 20 IU/L 0-40 1920-8) ALT (SGPT) (test code = 30 IU/L 0-44 1742-6) [facility] Description: Lipid [id number] 03:19:00 Test Item Value Reference Range Interpretation Comments Cholesterol, Total (test code = 231 mg/dL 100-199 H 2093-3) Triglycerides (test code = 2571-8) 215 mg/dL 0-149 H HDL Cholesterol (test code = 34 mg/dL >39 L 5-9) VLDL Cholesterol Renuka (test code = 43 mg/dL 5-40 H 32854-6) LDL Cholesterol Calc (test code = 154 mg/dL 0-99 H 48984-9) Comment: (test code = 92220-5) [facility] Description: Comp. Metabolic Panel (14)2019-11-10 03:19:00 Test Item Value Reference Range Interpretation Comments Glucose (test code = 2345-7) 439 mg/dL 65-99 H BUN (test code = 3094-0) 49 mg/dL 6-24 H Creatinine (test code = 2.17 mg/dL 0.76-1.27 H 2160-0) eGFR If NonAfricn Am (test 35 mL/min/1.73 >59 L code = 97819-5) eGFR If Africn Am (test code = 41 mL/min/1.73 >59 L 76521-2) BUN/Creatinine Ratio (test 23 9-20 H code = 3097-3) Sodium (test code = 2951-2) 137 mmol/L 134-144 Potassium (test code = 2823-3) 4.9 mmol/L 3.5-5.2 Chloride (test code = 2075-0) 93 mmol/L 96-106 L Carbon Dioxide, Total (test 29 mmol/L 20-29 code = 2028-9) Calcium (test code = 32702-5) 9.5 mg/dL 8.7-10.2 Protein, Total (test code = 6.5 g/dL 6.0-8.5 2885-2) Albumin (test code = 1751-7) 3.6 g/dL 4.0-5.0 L Globulin, Total (test code = 2.9 g/dL 1.5-4.5 54128-0) A/G Ratio (test code = 1759-0) 1.2 1.2-2.2 Bilirubin, Total (test code = 0.5 mg/dL 0.0-1.2 1975-2) Alkaline Phosphatase (test 103 IU/L 39-117 code = 6768-6) AST (SGOT) (test code = 20 IU/L 0-40 1920-8) ALT (SGPT) (test code = 30 IU/L 0-44 1742-6) [facility] Description: Lipid [id number] 03:19:00 Test Item Value Reference Range Interpretation Comments Cholesterol, Total (test code = 231 mg/dL 100-199 H 2093-3) Triglycerides (test code = 2571-8) 215 mg/dL 0-149 H HDL Cholesterol (test code = 34 mg/dL >39 L 5-9) VLDL Cholesterol Renuka (test code = 43 mg/dL 5-40 H 35761-4) LDL Cholesterol Calc (test code = 154 mg/dL 0-99 H 56280-1) Comment: (test code = 51553-2) [facility] Description: Comp. Metabolic Panel (14)2019-11-10 03:19:00 Test Item Value Reference Range Interpretation Comments Glucose (test code = 2345-7) 439 mg/dL 65-99 H BUN (test code = 3094-0) 49 mg/dL 6-24 H Creatinine (test code = 2.17 mg/dL 0.76-1.27 H 2160-0) eGFR If NonAfricn Am (test 35 mL/min/1.73 >59 L code = 16328-7) eGFR If Africn Am (test code = 41 mL/min/1.73 >59 L 61315-1) BUN/Creatinine Ratio (test 23 9-20 H code = 3097-3) Sodium (test code = 2951-2) 137 mmol/L 134-144 Potassium (test code = 2823-3) 4.9 mmol/L 3.5-5.2 Chloride (test code = 2075-0) 93 mmol/L 96-106 L Carbon Dioxide, Total (test 29 mmol/L 20-29 code = 8-9) Calcium (test code = 99980-1) 9.5 mg/dL 8.7-10.2 Protein, Total (test code = 6.5 g/dL 6.0-8.5 2885-2) Albumin (test code = 1751-7) 3.6 g/dL 4.0-5.0 L Globulin, Total (test code = 2.9 g/dL 1.5-4.5 22703-3) A/G Ratio (test code = 1759-0) 1.2 1.2-2.2 Bilirubin, Total (test code = 0.5 mg/dL 0.0-1.2 1975-2) Alkaline Phosphatase (test 103 IU/L 39-117 code = 6768-6) AST (SGOT) (test code = 20 IU/L 0-40 1920-8) ALT (SGPT) (test code = 30 IU/L 0-44 1742-6) [facility] Description: Comp. Metabolic Panel (14)2019-11-10 03:19:00 Test Item Value Reference Range Interpretation Comments Glucose (test code = 2345-7) 439 mg/dL 65-99 H BUN (test code = 3094-0) 49 mg/dL 6-24 H Creatinine (test code = 2.17 mg/dL 0.76-1.27 H 2160-0) eGFR If NonAfricn Am (test 35 mL/min/1.73 >59 L code = 65955-8) eGFR If Africn Am (test code = 41 mL/min/1.73 >59 L 21679-5) BUN/Creatinine Ratio (test 23 9-20 H code = 3097-3) Sodium (test code = 2951-2) 137 mmol/L 134-144 Potassium (test code = 2823-3) 4.9 mmol/L 3.5-5.2 Chloride (test code = 2075-0) 93 mmol/L 96-106 L Carbon Dioxide, Total (test 29 mmol/L 20-29 code = 2027-9) Calcium (test code = 57271-2) 9.5 mg/dL 8.7-10.2 Protein, Total (test code = 6.5 g/dL 6.0-8.5 2885-2) Albumin (test code = 1751-7) 3.6 g/dL 4.0-5.0 L Globulin, Total (test code = 2.9 g/dL 1.5-4.5 70835-7) A/G Ratio (test code = 1759-0) 1.2 1.2-2.2 Bilirubin, Total (test code = 0.5 mg/dL 0.0-1.2 1974-2) Alkaline Phosphatase (test 103 IU/L 39-117 code = 6768-6) AST (SGOT) (test code = 20 IU/L 0-40 1919-8) ALT (SGPT) (test code = 30 IU/L 0-44 1741-6) [facility] Description: Lipid [id number] 03:19:00 Test Item Value Reference Range Interpretation Comments Cholesterol, Total (test code = 231 mg/dL 100-199 H 2092-3) Triglycerides (test code = 2571-8) 215 mg/dL 0-149 H HDL Cholesterol (test code = 34 mg/dL >39 L 2084-9) VLDL Cholesterol Renuka (test code = 43 mg/dL 5-40 H 83938-3) LDL Cholesterol Calc (test code = 154 mg/dL 0-99 H 97367-8) Comment: (test code = 61241-9) [facility] Description: Lipid [id number] 03:19:00 Test Item Value Reference Range Interpretation Comments Cholesterol, Total (test code = 231 mg/dL 100-199 H 3-3) Triglycerides (test code = 2571-8) 215 mg/dL 0-149 H HDL Cholesterol (test code = 34 mg/dL >39 L 2084-9) VLDL Cholesterol Renuka (test code = 43 mg/dL 5-40 H 35312-9) LDL Cholesterol Calc (test code = 154 mg/dL 0-99 H 70688-3) Comment: (test code = 65819-2) [facility] Description: Comp. Metabolic Panel (14)2019-11-10 03:19:00 Test Item Value Reference Range Interpretation Comments Glucose (test code = 2345-7) 439 mg/dL 65-99 H BUN (test code = 3094-0) 49 mg/dL 6-24 H Creatinine (test code = 2.17 mg/dL 0.76-1.27 H 2160-0) eGFR If NonAfricn Am (test 35 mL/min/1.73 >59 L code = 40174-5) eGFR If Africn Am (test code = 41 mL/min/1.73 >59 L 22679-6) BUN/Creatinine Ratio (test 23 9-20 H code = 3097-3) Sodium (test code = 2951-2) 137 mmol/L 134-144 Potassium (test code = 2823-3) 4.9 mmol/L 3.5-5.2 Chloride (test code = 2075-0) 93 mmol/L 96-106 L Carbon Dioxide, Total (test 29 mmol/L 20-29 code = 8-9) Calcium (test code = 22649-3) 9.5 mg/dL 8.7-10.2 Protein, Total (test code = 6.5 g/dL 6.0-8.5 2885-2) Albumin (test code = 1751-7) 3.6 g/dL 4.0-5.0 L Globulin, Total (test code = 2.9 g/dL 1.5-4.5 73355-1) A/G Ratio (test code = 1759-0) 1.2 1.2-2.2 Bilirubin, Total (test code = 0.5 mg/dL 0.0-1.2 1975-2) Alkaline Phosphatase (test 103 IU/L 39-117 code = 6768-6) AST (SGOT) (test code = 20 IU/L 0-40 1920-8) ALT (SGPT) (test code = 30 IU/L 0-44 1742-6) [facility] Description: Lipid [id number] 03:19:00 Test Item Value Reference Range Interpretation Comments Cholesterol, Total (test code = 231 mg/dL 100-199 H 2093-3) Triglycerides (test code = 2571-8) 215 mg/dL 0-149 H HDL Cholesterol (test code = 34 mg/dL >39 L 2084-9) VLDL Cholesterol Renuka (test code = 43 mg/dL 5-40 H 73305-5) LDL Cholesterol Calc (test code = 154 mg/dL 0-99 H 83320-0) Comment: (test code = 26646-0) [facility] Description: Comp. Metabolic Panel (14)2019-11-10 03:19:00 Test Item Value Reference Range Interpretation Comments Glucose (test code = 2345-7) 439 mg/dL 65-99 H BUN (test code = 3094-0) 49 mg/dL 6-24 H Creatinine (test code = 2.17 mg/dL 0.76-1.27 H 2160-0) eGFR If NonAfricn Am (test 35 mL/min/1.73 >59 L code = 60677-6) eGFR If Africn Am (test code = 41 mL/min/1.73 >59 L 70897-1) BUN/Creatinine Ratio (test 23 9-20 H code = 3097-3) Sodium (test code = 2951-2) 137 mmol/L 134-144 Potassium (test code = 2823-3) 4.9 mmol/L 3.5-5.2 Chloride (test code = 2075-0) 93 mmol/L 96-106 L Carbon Dioxide, Total (test 29 mmol/L 20-29 code = 8-9) Calcium (test code = 16203-9) 9.5 mg/dL 8.7-10.2 Protein, Total (test code = 6.5 g/dL 6.0-8.5 2885-2) Albumin (test code = 1751-7) 3.6 g/dL 4.0-5.0 L Globulin, Total (test code = 2.9 g/dL 1.5-4.5 05528-1) A/G Ratio (test code = 1759-0) 1.2 1.2-2.2 Bilirubin, Total (test code = 0.5 mg/dL 0.0-1.2 1975-2) Alkaline Phosphatase (test 103 IU/L 39-117 code = 6768-6) AST (SGOT) (test code = 20 IU/L 0-40 1920-8) ALT (SGPT) (test code = 30 IU/L 0-44 1742-6) [facility] Description: Lipid [id number] 03:19:00 Test Item Value Reference Range Interpretation Comments Cholesterol, Total (test code = 231 mg/dL 100-199 H 2093-3) Triglycerides (test code = 2571-8) 215 mg/dL 0-149 H HDL Cholesterol (test code = 34 mg/dL >39 L 2085-9) VLDL Cholesterol Renuka (test code = 43 mg/dL 5-40 H 13256-8) LDL Cholesterol Calc (test code = 154 mg/dL 0-99 H 76584-1) Comment: (test code = 99911-1) [facility] Description: Comp. Metabolic Panel (14)2019-11-10 03:19:00 Test Item Value Reference Range Interpretation Comments Glucose (test code = 2345-7) 439 mg/dL 65-99 H BUN (test code = 3094-0) 49 mg/dL 6-24 H Creatinine (test code = 2.17 mg/dL 0.76-1.27 H 2160-0) eGFR If NonAfricn Am (test 35 mL/min/1.73 >59 L code = 88030-0) eGFR If Africn Am (test code = 41 mL/min/1.73 >59 L 08327-4) BUN/Creatinine Ratio (test 23 9-20 H code = 3097-3) Sodium (test code = 2951-2) 137 mmol/L 134-144 Potassium (test code = 2823-3) 4.9 mmol/L 3.5-5.2 Chloride (test code = 2075-0) 93 mmol/L 96-106 L Carbon Dioxide, Total (test 29 mmol/L 20-29 code = 8-9) Calcium (test code = 24195-3) 9.5 mg/dL 8.7-10.2 Protein, Total (test code = 6.5 g/dL 6.0-8.5 2885-2) Albumin (test code = 1751-7) 3.6 g/dL 4.0-5.0 L Globulin, Total (test code = 2.9 g/dL 1.5-4.5 94558-0) A/G Ratio (test code = 1759-0) 1.2 1.2-2.2 Bilirubin, Total (test code = 0.5 mg/dL 0.0-1.2 1975-2) Alkaline Phosphatase (test 103 IU/L 39-117 code = 6768-6) AST (SGOT) (test code = 20 IU/L 0-40 1920-8) ALT (SGPT) (test code = 30 IU/L 0-44 1742-6) [facility] Description: Lipid [id number] 03:19:00 Test Item Value Reference Range Interpretation Comments Cholesterol, Total (test code = 231 mg/dL 100-199 H 2092-3) Triglycerides (test code = 2571-8) 215 mg/dL 0-149 H HDL Cholesterol (test code = 34 mg/dL >39 L 2084-9) VLDL Cholesterol Renuka (test code = 43 mg/dL 5-40 H 82725-7) LDL Cholesterol Calc (test code = 154 mg/dL 0-99 H 29009-6) Comment: (test code = 44625-3) [facility] Description: Comp. Metabolic Panel ()2019-11-10 03:19:00 Test Item Value Reference Range Interpretation Comments Glucose (test code = 2345-7) 439 mg/dL 65-99 H BUN (test code = 3094-0) 49 mg/dL 6-24 H Creatinine (test code = 2.17 mg/dL 0.76-1.27 H 2160-0) eGFR If NonAfricn Am (test 35 mL/min/1.73 >59 L code = 50558-6) eGFR If Africn Am (test code = 41 mL/min/1.73 >59 L 89655-2) BUN/Creatinine Ratio (test 23 9-20 H code = 3097-3) Sodium (test code = 2951-2) 137 mmol/L 134-144 Potassium (test code = 2823-3) 4.9 mmol/L 3.5-5.2 Chloride (test code = 2075-0) 93 mmol/L 96-106 L Carbon Dioxide, Total (test 29 mmol/L 20-29 code = 8-9) Calcium (test code = 75327-1) 9.5 mg/dL 8.7-10.2 Protein, Total (test code = 6.5 g/dL 6.0-8.5 2885-2) Albumin (test code = 1751-7) 3.6 g/dL 4.0-5.0 L Globulin, Total (test code = 2.9 g/dL 1.5-4.5 86678-7) A/G Ratio (test code = 1759-0) 1.2 1.2-2.2 Bilirubin, Total (test code = 0.5 mg/dL 0.0-1.2 1975-2) Alkaline Phosphatase (test 103 IU/L 39-117 code = 6768-6) AST (SGOT) (test code = 20 IU/L 0-40 1920-8) ALT (SGPT) (test code = 30 IU/L 0-44 1742-6) [facility]: Lipid [id number] 03:19:00 Test Item Value Reference Range Interpretation Comments Cholesterol, Total (test code = 231 mg/dL 100-199 H 3-3) Triglycerides (test code = 2571-8) 215 mg/dL 0-149 H HDL Cholesterol (test code = 34 mg/dL >39 L 5-9) VLDL Cholesterol Renuka (test code = 43 mg/dL 5-40 H 01899-1) LDL Cholesterol Calc (test code = 154 mg/dL 0-99 H 38563-8) Comment: (test code = 34119-7) [facility]: Comp. Metabolic Panel (14)2019-11-10 03:19:00 Test Item Value Reference Range Interpretation Comments Glucose (test code = 2345-7) 439 mg/dL 65-99 H BUN (test code = 3094-0) 49 mg/dL 6-24 H Creatinine (test code = 2.17 mg/dL 0.76-1.27 H 2160-0) eGFR If NonAfricn Am (test 35 mL/min/1.73 >59 L code = 54092-3) eGFR If Africn Am (test code = 41 mL/min/1.73 >59 L 52503-8) BUN/Creatinine Ratio (test 23 9-20 H code = 3097-3) Sodium (test code = 2951-2) 137 mmol/L 134-144 Potassium (test code = 2823-3) 4.9 mmol/L 3.5-5.2 Chloride (test code = 2075-0) 93 mmol/L 96-106 L Carbon Dioxide, Total (test 29 mmol/L 20-29 code = 2027-9) Calcium (test code = 53043-8) 9.5 mg/dL 8.7-10.2 Protein, Total (test code = 6.5 g/dL 6.0-8.5 2885-2) Albumin (test code = 1751-7) 3.6 g/dL 4.0-5.0 L Globulin, Total (test code = 2.9 g/dL 1.5-4.5 23370-2) A/G Ratio (test code = 1759-0) 1.2 1.2-2.2 Bilirubin, Total (test code = 0.5 mg/dL 0.0-1.2 1975-2) Alkaline Phosphatase (test 103 IU/L 39-117 code = 6768-6) AST (SGOT) (test code = 20 IU/L 0-40 1920-8) ALT (SGPT) (test code = 30 IU/L 0-44 1742-6) [facility] Description: Lipid [id number] 03:19:00 Test Item Value Reference Range Interpretation Comments Cholesterol, Total (test code = 231 mg/dL 100-199 H 2092-3) Triglycerides (test code = 2571-8) 215 mg/dL 0-149 H HDL Cholesterol (test code = 34 mg/dL >39 L 2084-9) VLDL Cholesterol Renuka (test code = 43 mg/dL 5-40 H 37684-8) LDL Cholesterol Calc (test code = 154 mg/dL 0-99 H 19168-3) Comment: (test code = 87587-7) [facility] Description: Comp. Metabolic Panel ()2019-11-10 03:19:00 Test Item Value Reference Range Interpretation Comments Glucose (test code = 2345-7) 439 mg/dL 65-99 H BUN (test code = 3094-0) 49 mg/dL 6-24 H Creatinine (test code = 2.17 mg/dL 0.76-1.27 H 2160-0) eGFR If NonAfricn Am (test 35 mL/min/1.73 >59 L code = 58251-9) eGFR If Africn Am (test code = 41 mL/min/1.73 >59 L 40135-2) BUN/Creatinine Ratio (test 23 9-20 H code = 3097-3) Sodium (test code = 2951-2) 137 mmol/L 134-144 Potassium (test code = 2823-3) 4.9 mmol/L 3.5-5.2 Chloride (test code = 2075-0) 93 mmol/L 96-106 L Carbon Dioxide, Total (test 29 mmol/L 20-29 code = 2028-9) Calcium (test code = 31408-7) 9.5 mg/dL 8.7-10.2 Protein, Total (test code = 6.5 g/dL 6.0-8.5 2885-2) Albumin (test code = 1751-7) 3.6 g/dL 4.0-5.0 L Globulin, Total (test code = 2.9 g/dL 1.5-4.5 72366-8) A/G Ratio (test code = 1759-0) 1.2 1.2-2.2 Bilirubin, Total (test code = 0.5 mg/dL 0.0-1.2 1975-2) Alkaline Phosphatase (test 103 IU/L 39-117 code = 6768-6) AST (SGOT) (test code = 20 IU/L 0-40 1920-8) ALT (SGPT) (test code = 30 IU/L 0-44 1742-6) [facility] Description: Lipid [id number] 03:19:00 Test Item Value Reference Range Interpretation Comments Cholesterol, Total (test code = 231 mg/dL 100-199 H 2093-3) Triglycerides (test code = 2571-8) 215 mg/dL 0-149 H HDL Cholesterol (test code = 34 mg/dL >39 L 5-9) VLDL Cholesterol Renuka (test code = 43 mg/dL 5-40 H 45743-5) LDL Cholesterol Calc (test code = 154 mg/dL 0-99 H 20540-5) Comment: (test code = 89774-0) [facility], CHEST, 1 VIEW, NON [id number] 23:44:00Reason for exam:- >SHORTNESS OF BREATHReason for [...] pg/mL 0-100 H (test code = 700) [employer] ID - LACIE BTROPONIN [id number] 23:17:00 Test Item Value Reference Range Interpretation [...] failure, acidosis, acute neurological disease, and persistent tachyarrhythmia.[employer] ID - LACIE BCOMPREHENSIVE METABOLIC [id number] 23:11:00 Test Item Value Reference Range Interpretation [...] S NOT APPLICABLE FOR DIALYSIS PATIEN TS. [employer] ID - LACIE BCBC W/PLT COUNT & AUTO [id number] 22:51:00 Test Item Value Reference Range Interpretation [...] = 2801) Panel Description: Hemoglobin A1c/Hemoglobin.total in [id number] 09:26:00 Test Item Value Reference Range Interpretation Comments Hemoglobin A1c (test code 10.1 % 4.8-5.6 H = 4548-4) . Prediabetes: 5. 7 - 6.4 Diabete s: >6.4 Glycemi c control for niall lts with diabetes: <7.0

P erforme d by:
[facility] ([place])

[facility] Description: Hemoglobin A1c/Hemoglobin.total in Blood 2019-07-04 09:26:00 Test Item Value Reference Range Interpretation Comments Hemoglobin A1c (test code 10.1 % 4.8-5.6 H = 4548-4) . Prediabetes: 5. 7 - 6.4 Diabete s: >6.4 Glycemi c control for niall lts with diabetes: <7.0

P erforme d by:
[facility] ([facility])

[facility] Description: Hemoglobin A1c/Hemoglobin.total in Blood 2019-07-04 09:26:00 Test Item Value Reference Range Interpretation Comments Hemoglobin A1c (test code 10.1 % 4.8-5.6 H = 4548-4) . Prediabetes: 5. 7 - 6.4 Diabete s: >6.4 Glycemi c control for niall lts with diabetes: <7.0

P erforme d by:
[facility] ([facility])

[facility] Description: Hemoglobin A1c/Hemoglobin.total in Blood 2019-07-04 09:26:00 Test Item Value Reference Range Interpretation Comments Hemoglobin A1c (test code 10.1 % 4.8-5.6 H = 4548-4) . Prediabetes: 5. 7 - 6.4 Diabete s: >6.4 Glycemi c control for niall lts with diabetes: <7.0

P erforme d by:
[facility] ([place])

[facility] Description: Hemoglobin A1c/Hemoglobin.total in Blood 2019-07-04 09:26:00 Test Item Value Reference Range Interpretation Comments Hemoglobin A1c (test code 10.1 % 4.8-5.6 H = 4548-4) . Prediabetes: 5. 7 - 6.4 Diabete s: >6.4 Glycemi c control for niall lts with diabetes: <7.0

P erforme d by:
[facility] ([place])

[facility] Description: Hemoglobin A1c/Hemoglobin.total in Blood 2019-07-04 09:26:00 Test Item Value Reference Range Interpretation Comments Hemoglobin A1c (test code 10.1 % 4.8-5.6 H = 4548-4) . Prediabetes: 5. 7 - 6.4 Diabete s: >6.4 Glycemi c control for niall lts with diabetes: <7.0

P erforme d by:
[facility] ([place])

[facility] Description: Hemoglobin A1c/Hemoglobin.total in Blood 2019-07-04 09:26:00 Test Item Value Reference Range Interpretation Comments Hemoglobin A1c (test code 10.1 % 4.8-5.6 H = 4548-4) . Prediabetes: 5. 7 - 6.4 Diabete s: >6.4 Glycemi c control for niall lts with diabetes: <7.0

P erforme d by:
[facility] ([place])

[facility] Description: Hemoglobin A1c/Hemoglobin.total in Blood 2019-07-04 09:26:00 Test Item Value Reference Range Interpretation Comments Hemoglobin A1c (test code 10.1 % 4.8-5.6 H = 4548-4) . Prediabetes: 5. 7 - 6.4 Diabete s: >6.4 Glycemi c control for niall lts with diabetes: <7.0

P erforme d by:
[facility] ([place])

[facility] Description: Hemoglobin A1c/Hemoglobin.total in Blood 2019-07-04 09:26:00 Test Item Value Reference Range Interpretation Comments Hemoglobin A1c (test code 10.1 % 4.8-5.6 H = 4548-4) . Prediabetes: 5. 7 - 6.4 Diabete s: >6.4 Glycemi c control for niall lts with diabetes: <7.0

P erforme d by:
[facility] ([place])

[facility] Description: Hemoglobin A1c/Hemoglobin.total in Blood 2019-07-04 09:26:00 Test Item Value Reference Range Interpretation Comments Hemoglobin A1c (test code 10.1 % 4.8-5.6 H = 4548-4) . Prediabetes: 5. 7 - 6.4 Diabete s: >6.4 Glycemi c control for niall lts with diabetes: <7.0

P erforme d by:
[facility] ([place])

[facility] Description: Hemoglobin A1c/Hemoglobin.total in Blood 2019-07-04 09:26:00 Test Item Value Reference Range Interpretation Comments Hemoglobin A1c (test code 10.1 % 4.8-5.6 H = 4548-4) . Prediabetes: 5. 7 - 6.4 Diabete s: >6.4 Glycemi c control for niall lts with diabetes: <7.0

P erforme d by:
[facility] ([place])

[facility] Description: Hemoglobin A1c/Hemoglobin.total in Blood 2019-07-04 09:26:00 Test Item Value Reference Range Interpretation Comments Hemoglobin A1c (test code 10.1 % 4.8-5.6 H = 4548-4) . Prediabetes: 5. 7 - 6.4 Diabete s: >6.4 Glycemi c control for niall lts with diabetes: <7.0

P erforme d by:
[facility] ([place])

[facility] Description: Hemoglobin A1c/Hemoglobin.total in Blood 2019-07-04 09:26:00 Test Item Value Reference Range Interpretation Comments Hemoglobin A1c (test code 10.1 % 4.8-5.6 H = 4548-4) . Prediabetes: 5. 7 - 6.4 Diabete s: >6.4 Glycemi c control for niall lts with diabetes: <7.0

P erforme d by:
[facility] ([place])

[facility] Description: Hemoglobin A1c/Hemoglobin.total in Blood 2019-07-04 09:26:00 Test Item Value Reference Range Interpretation Comments Hemoglobin A1c (test code 10.1 % 4.8-5.6 H = 4548-4) . Prediabetes: 5. 7 - 6.4 Diabete s: >6.4 Glycemi c control for niall lts with diabetes: <7.0

P erforme d by:
[facility] ([place])

[facility] Description: Hemoglobin A1c/Hemoglobin.total in Blood 2019-07-04 09:26:00 Test Item Value Reference Range Interpretation Comments Hemoglobin A1c (test code 10.1 % 4.8-5.6 H = 4548-4) . Prediabetes: 5. 7 - 6.4 Diabete s: >6.4 Glycemi c control for niall lts with diabetes: <7.0

P erforme d by:
[facility] ([place])

[facility] Description: Hemoglobin A1c/Hemoglobin.total in Blood 2019-07-04 09:26:00 Test Item Value Reference Range Interpretation Comments Hemoglobin A1c (test code 10.1 % 4.8-5.6 H = 4548-4) . Prediabetes: 5. 7 - 6.4 Diabete s: >6.4 Glycemi c control for niall lts with diabetes: <7.0

P erforme d by:
[facility] ([place])

[facility] Description: Hemoglobin A1c/Hemoglobin.total in Blood 2019-07-04 09:26:00 Test Item Value Reference Range Interpretation Comments Hemoglobin A1c (test code 10.1 % 4.8-5.6 H = 4548-4) . Prediabetes: 5. 7 - 6.4 Diabete s: >6.4 Glycemi c control for niall lts with diabetes: <7.0

P erforme d by:
[facility] ([place])

[facility] Description: Hemoglobin A1c/Hemoglobin.total in Blood 2019-07-04 09:26:00 Test Item Value Reference Range Interpretation Comments Hemoglobin A1c (test code 10.1 % 4.8-5.6 H = 4548-4) . Prediabetes: 5. 7 - 6.4 Diabete s: >6.4 Glycemi c control for niall lts with diabetes: <7.0

P erforme d by:
[facility] ([place])

[facility] Description: Hemoglobin A1c/Hemoglobin.total in Blood 2019-07-04 09:26:00 Test Item Value Reference Range Interpretation Comments Hemoglobin A1c (test code 10.1 % 4.8-5.6 H = 4548-4) . Prediabetes: 5. 7 - 6.4 Diabete s: >6.4 Glycemi c control for niall lts with diabetes: <7.0

P erforme d by:
[facility] ([place])

[facility] Description: Hemoglobin A1c/Hemoglobin.total in Blood 2019-07-04 09:26:00 Test Item Value Reference Range Interpretation Comments Hemoglobin A1c (test code 10.1 % 4.8-5.6 H = 4548-4) . Prediabetes: 5. 7 - 6.4 Diabete s: >6.4 Glycemi c control for niall lts with diabetes: <7.0

P erforme d by:
[facility] ([place])

[facility] Description: Hemoglobin A1c/Hemoglobin.total in Blood 2019-07-04 09:26:00 Test Item Value Reference Range Interpretation Comments Hemoglobin A1c (test code 10.1 % 4.8-5.6 H = 4548-4) . Prediabetes: 5. 7 - 6.4 Diabete s: >6.4 Glycemi c control for niall lts with diabetes: <7.0

P erforme d by:
[facility] ([place])

[facility] Description: Hemoglobin A1c/Hemoglobin.total in Blood 2019-07-04 09:26:00 Test Item Value Reference Range Interpretation Comments Hemoglobin A1c (test code 10.1 % 4.8-5.6 H = 4548-4) . Prediabetes: 5. 7 - 6.4 Diabete s: >6.4 Glycemi c control for niall lts with diabetes: <7.0

P erforme d by:
[facility] ([place])

[facility] Description: Hemoglobin A1c/Hemoglobin.total in Blood 2019-07-04 09:26:00 Test Item Value Reference Range Interpretation Comments Hemoglobin A1c (test code 10.1 % 4.8-5.6 H = 4548-4) . Prediabetes: 5. 7 - 6.4 Diabete s: >6.4 Glycemi c control for niall lts with diabetes: <7.0

P erforme d by:
[facility] ([place])

[facility] Description: Hemoglobin A1c/Hemoglobin.total in Blood 2019-07-04 09:26:00 Test Item Value Reference Range Interpretation Comments Hemoglobin A1c (test code 10.1 % 4.8-5.6 H = 4548-4) . Prediabetes: 5. 7 - 6.4 Diabete s: >6.4 Glycemi c control for niall lts with diabetes: <7.0

P erforme d by:
[facility] ([place])

[facility] Description: Hemoglobin A1c/Hemoglobin.total in Blood 2019-07-04 09:26:00 Test Item Value Reference Range Interpretation Comments Hemoglobin A1c (test code 10.1 % 4.8-5.6 H = 4548-4) . Prediabetes: 5. 7 - 6.4 Diabete s: >6.4 Glycemi c control for niall lts with diabetes: <7.0

P erforme d by:
[facility] ([place])

[facility] Description: Hemoglobin A1c/Hemoglobin.total in Blood 2019-07-04 09:26:00 Test Item Value Reference Range Interpretation Comments Hemoglobin A1c (test code 10.1 % 4.8-5.6 H = 4548-4) . Prediabetes: 5. 7 - 6.4 Diabete s: >6.4 Glycemi c control for niall lts with diabetes: <7.0

P erforme d by:
[facility] ([place])

[facility]: Hemoglobin A1c/Hemoglobin.total in Blood 2019-07-04 09:26:00 Test Item Value Reference Range Interpretation Comments Hemoglobin A1c (test code 10.1 % 4.8-5.6 H = 4548-4) . Prediabetes: 5. 7 - 6.4 Diabete s: >6.4 Glycemi c control for niall lts with diabetes: <7.0

P erforme d by:
[facility] ([place])

Access [employer] Description: Lipid [id number] 01:17:00 Test Item Value Reference Range Interpretation Comments Cholesterol, Total (test code = 241 mg/dL 100-199 H 2093-3) Triglycerides (test code = 2571-8) 57 mg/dL 0-149 HDL Cholesterol (test code = 37 mg/dL >39 L 5-9) VLDL Cholesterol Renuka (test code = 11 mg/dL 5-40 72632-3) LDL Cholesterol Calc (test code = 193 mg/dL 0-99 H 62775-5) Comment: (test code = 07977-7) [employer] Description: Lipid [id number] 01:17:00 Test Item Value Reference Range Interpretation Comments Cholesterol, Total (test code = 241 mg/dL 100-199 H 2093-3) Triglycerides (test code = 2571-8) 57 mg/dL 0-149 HDL Cholesterol (test code = 37 mg/dL >39 L 5-9) VLDL Cholesterol Renuka (test code = 11 mg/dL 5-40 17438-8) LDL Cholesterol Calc (test code = 193 mg/dL 0-99 H 35692-1) Comment: (test code = 40592-8) [employer] Description: Lipid [id number] 01:17:00 Test Item Value Reference Range Interpretation Comments Cholesterol, Total (test code = 241 mg/dL 100-199 H 2093-3) Triglycerides (test code = 2571-8) 57 mg/dL 0-149 HDL Cholesterol (test code = 37 mg/dL >39 L 2085-9) VLDL Cholesterol Renuka (test code = 11 mg/dL 5-40 69925-5) LDL Cholesterol Calc (test code = 193 mg/dL 0-99 H 17787-4) Comment: (test code = 85488-8) [employer] Description: Lipid [id number] 01:17:00 Test Item Value Reference Range Interpretation Comments Cholesterol, Total (test code = 241 mg/dL 100-199 H 2093-3) Triglycerides (test code = 2571-8) 57 mg/dL 0-149 HDL Cholesterol (test code = 37 mg/dL >39 L 2085-9) VLDL Cholesterol Renuka (test code = 11 mg/dL 5-40 44382-1) LDL Cholesterol Calc (test code = 193 mg/dL 0-99 H 60407-6) Comment: (test code = 02185-3) [employer] Description: Lipid [id number] 01:17:00 Test Item Value Reference Range Interpretation Comments Cholesterol, Total (test code = 241 mg/dL 100-199 H 2093-3) Triglycerides (test code = 2571-8) 57 mg/dL 0-149 HDL Cholesterol (test code = 37 mg/dL >39 L 2085-9) VLDL Cholesterol Renuka (test code = 11 mg/dL 5-40 31063-3) LDL Cholesterol Calc (test code = 193 mg/dL 0-99 H 70293-5) Comment: (test code = 84106-7) [employer] Description: Lipid [id number] 01:17:00 Test Item Value Reference Range Interpretation Comments Cholesterol, Total (test code = 241 mg/dL 100-199 H 2093-3) Triglycerides (test code = 2571-8) 57 mg/dL 0-149 HDL Cholesterol (test code = 37 mg/dL >39 L 2085-9) VLDL Cholesterol Renuka (test code = 11 mg/dL 5-40 32924-8) LDL Cholesterol Calc (test code = 193 mg/dL 0-99 H 93867-0) Comment: (test code = 84024-4) [employer] Description: Lipid [id number] 01:17:00 Test Item Value Reference Range Interpretation Comments Cholesterol, Total (test code = 241 mg/dL 100-199 H 2093-3) Triglycerides (test code = 2571-8) 57 mg/dL 0-149 HDL Cholesterol (test code = 37 mg/dL >39 L 2085-9) VLDL Cholesterol Renuka (test code = 11 mg/dL 5-40 31831-5) LDL Cholesterol Calc (test code = 193 mg/dL 0-99 H 12350-0) Comment: (test code = 70374-9) [employer] Description: Lipid [id number] 01:17:00 Test Item Value Reference Range Interpretation Comments Cholesterol, Total (test code = 241 mg/dL 100-199 H 2093-3) Triglycerides (test code = 2571-8) 57 mg/dL 0-149 HDL Cholesterol (test code = 37 mg/dL >39 L 2085-9) VLDL Cholesterol Renuka (test code = 11 mg/dL 5-40 03505-6) LDL Cholesterol Calc (test code = 193 mg/dL 0-99 H 62868-2) Comment: (test code = 43756-5) [employer] Description: Lipid [id number] 01:17:00 Test Item Value Reference Range Interpretation Comments Cholesterol, Total (test code = 241 mg/dL 100-199 H 2093-3) Triglycerides (test code = 2571-8) 57 mg/dL 0-149 HDL Cholesterol (test code = 37 mg/dL >39 L 2085-9) VLDL Cholesterol Renuka (test code = 11 mg/dL 5-40 06703-8) LDL Cholesterol Calc (test code = 193 mg/dL 0-99 H 15663-3) Comment: (test code = 07487-7) [employer] Description: Lipid [id number] 01:17:00 Test Item Value Reference Range Interpretation Comments Cholesterol, Total (test code = 241 mg/dL 100-199 H 2093-3) Triglycerides (test code = 2571-8) 57 mg/dL 0-149 HDL Cholesterol (test code = 37 mg/dL >39 L 2085-9) VLDL Cholesterol Renuka (test code = 11 mg/dL 5-40 73454-7) LDL Cholesterol Calc (test code = 193 mg/dL 0-99 H 26946-8) Comment: (test code = 71006-9) [employer] Description: Lipid [id number] 01:17:00 Test Item Value Reference Range Interpretation Comments Cholesterol, Total (test code = 241 mg/dL 100-199 H 2093-3) Triglycerides (test code = 2571-8) 57 mg/dL 0-149 HDL Cholesterol (test code = 37 mg/dL >39 L 2085-9) VLDL Cholesterol Renuka (test code = 11 mg/dL 5-40 50757-8) LDL Cholesterol Calc (test code = 193 mg/dL 0-99 H 90699-0) Comment: (test code = 18004-4) [employer] Description: Lipid [id number] 01:17:00 Test Item Value Reference Range Interpretation Comments Cholesterol, Total (test code = 241 mg/dL 100-199 H 2093-3) Triglycerides (test code = 2571-8) 57 mg/dL 0-149 HDL Cholesterol (test code = 37 mg/dL >39 L 2085-9) VLDL Cholesterol Renuka (test code = 11 mg/dL 5-40 48805-6) LDL Cholesterol Calc (test code = 193 mg/dL 0-99 H 95866-4) Comment: (test code = 65776-8) [employer] Description: Lipid [id number] 01:17:00 Test Item Value Reference Range Interpretation Comments Cholesterol, Total (test code = 241 mg/dL 100-199 H 2093-3) Triglycerides (test code = 2571-8) 57 mg/dL 0-149 HDL Cholesterol (test code = 37 mg/dL >39 L 2085-9) VLDL Cholesterol Renuka (test code = 11 mg/dL 5-40 03500-2) LDL Cholesterol Calc (test code = 193 mg/dL 0-99 H 97993-5) Comment: (test code = 95747-4) [employer] Description: Lipid [id number] 01:17:00 Test Item Value Reference Range Interpretation Comments Cholesterol, Total (test code = 241 mg/dL 100-199 H 2093-3) Triglycerides (test code = 2571-8) 57 mg/dL 0-149 HDL Cholesterol (test code = 37 mg/dL >39 L 2085-9) VLDL Cholesterol Renuka (test code = 11 mg/dL 5-40 91350-5) LDL Cholesterol Calc (test code = 193 mg/dL 0-99 H 34198-9) Comment: (test code = 70921-3) [employer] Description: Lipid [id number] 01:17:00 Test Item Value Reference Range Interpretation Comments Cholesterol, Total (test code = 241 mg/dL 100-199 H 2093-3) Triglycerides (test code = 2571-8) 57 mg/dL 0-149 HDL Cholesterol (test code = 37 mg/dL >39 L 2085-9) VLDL Cholesterol Renuka (test code = 11 mg/dL 5-40 74582-1) LDL Cholesterol Calc (test code = 193 mg/dL 0-99 H 59331-8) Comment: (test code = 13354-8) [employer] Description: Lipid [id number] 01:17:00 Test Item Value Reference Range Interpretation Comments Cholesterol, Total (test code = 241 mg/dL 100-199 H 2093-3) Triglycerides (test code = 2571-8) 57 mg/dL 0-149 HDL Cholesterol (test code = 37 mg/dL >39 L 2085-9) VLDL Cholesterol Renuka (test code = 11 mg/dL 5-40 73947-8) LDL Cholesterol Calc (test code = 193 mg/dL 0-99 H 85197-5) Comment: (test code = 07150-5) [employer] Description: Lipid [id number] 01:17:00 Test Item Value Reference Range Interpretation Comments Cholesterol, Total (test code = 241 mg/dL 100-199 H 2093-3) Triglycerides (test code = 2571-8) 57 mg/dL 0-149 HDL Cholesterol (test code = 37 mg/dL >39 L 2085-9) VLDL Cholesterol Renuka (test code = 11 mg/dL 5-40 95891-4) LDL Cholesterol Calc (test code = 193 mg/dL 0-99 H 83337-7) Comment: (test code = 72204-5) [employer] Description: Lipid [id number] 01:17:00 Test Item Value Reference Range Interpretation Comments Cholesterol, Total (test code = 241 mg/dL 100-199 H 2093-3) Triglycerides (test code = 2571-8) 57 mg/dL 0-149 HDL Cholesterol (test code = 37 mg/dL >39 L 2085-9) VLDL Cholesterol Renuka (test code = 11 mg/dL 5-40 16609-8) LDL Cholesterol Calc (test code = 193 mg/dL 0-99 H 40417-2) Comment: (test code = 73504-2) [employer] Description: Lipid [id number] 01:17:00 Test Item Value Reference Range Interpretation Comments Cholesterol, Total (test code = 241 mg/dL 100-199 H 2093-3) Triglycerides (test code = 2571-8) 57 mg/dL 0-149 HDL Cholesterol (test code = 37 mg/dL >39 L 2085-9) VLDL Cholesterol Renuka (test code = 11 mg/dL 5-40 64968-5) LDL Cholesterol Calc (test code = 193 mg/dL 0-99 H 51814-7) Comment: (test code = 73474-3) [employer] Description: Lipid [id number] 01:17:00 Test Item Value Reference Range Interpretation Comments Cholesterol, Total (test code = 241 mg/dL 100-199 H 2093-3) Triglycerides (test code = 2571-8) 57 mg/dL 0-149 HDL Cholesterol (test code = 37 mg/dL >39 L 2085-9) VLDL Cholesterol Renuka (test code = 11 mg/dL 5-40 89154-6) LDL Cholesterol Calc (test code = 193 mg/dL 0-99 H 64892-2) Comment: (test code = 82030-6) [employer] Description: Lipid [id number] 01:17:00 Test Item Value Reference Range Interpretation Comments Cholesterol, Total (test code = 241 mg/dL 100-199 H 2093-3) Triglycerides (test code = 2571-8) 57 mg/dL 0-149 HDL Cholesterol (test code = 37 mg/dL >39 L 2085-9) VLDL Cholesterol Renuka (test code = 11 mg/dL 5-40 60049-9) LDL Cholesterol Calc (test code = 193 mg/dL 0-99 H 05252-7) Comment: (test code = 33522-1) [employer] Description: Lipid [id number] 01:17:00 Test Item Value Reference Range Interpretation Comments Cholesterol, Total (test code = 241 mg/dL 100-199 H 2093-3) Triglycerides (test code = 2571-8) 57 mg/dL 0-149 HDL Cholesterol (test code = 37 mg/dL >39 L 2085-9) VLDL Cholesterol Renuka (test code = 11 mg/dL 5-40 81540-3) LDL Cholesterol Calc (test code = 193 mg/dL 0-99 H 32184-1) Comment: (test code = 03277-0) [employer] Description: Lipid [id number] 01:17:00 Test Item Value Reference Range Interpretation Comments Cholesterol, Total (test code = 241 mg/dL 100-199 H 2093-3) Triglycerides (test code = 2571-8) 57 mg/dL 0-149 HDL Cholesterol (test code = 37 mg/dL >39 L 2085-9) VLDL Cholesterol Renuka (test code = 11 mg/dL 5-40 88303-3) LDL Cholesterol Calc (test code = 193 mg/dL 0-99 H 89728-6) Comment: (test code = 56421-8) [employer] Description: Lipid [id number] 01:17:00 Test Item Value Reference Range Interpretation Comments Cholesterol, Total (test code = 241 mg/dL 100-199 H 2093-3) Triglycerides (test code = 2571-8) 57 mg/dL 0-149 HDL Cholesterol (test code = 37 mg/dL >39 L 2085-9) VLDL Cholesterol Renuka (test code = 11 mg/dL 5-40 28904-2) LDL Cholesterol Calc (test code = 193 mg/dL 0-99 H 48417-7) Comment: (test code = 62830-4) [employer] Description: Lipid [id number] 01:17:00 Test Item Value Reference Range Interpretation Comments Cholesterol, Total (test code = 241 mg/dL 100-199 H 2093-3) Triglycerides (test code = 2571-8) 57 mg/dL 0-149 HDL Cholesterol (test code = 37 mg/dL >39 L 2085-9) VLDL Cholesterol Renuka (test code = 11 mg/dL 5-40 66779-2) LDL Cholesterol Calc (test code = 193 mg/dL 0-99 H 45251-4) Comment: (test code = 36695-2) [employer] Description: Lipid [id number] 01:17:00 Test Item Value Reference Range Interpretation Comments Cholesterol, Total (test code = 241 mg/dL 100-199 H 2093-3) Triglycerides (test code = 2571-8) 57 mg/dL 0-149 HDL Cholesterol (test code = 37 mg/dL >39 L 2085-9) VLDL Cholesterol Renuka (test code = 11 mg/dL 5-40 31946-9) LDL Cholesterol Calc (test code = 193 mg/dL 0-99 H 22380-2) Comment: (test code = 83988-3) [employer] Description: Lipid [id number] 01:17:00 Test Item Value Reference Range Interpretation Comments Cholesterol, Total (test code = 241 mg/dL 100-199 H 2093-3) Triglycerides (test code = 2571-8) 57 mg/dL 0-149 HDL Cholesterol (test code = 37 mg/dL >39 L 5-9) VLDL Cholesterol Renuka (test code = 11 mg/dL 5-40 22504-3) LDL Cholesterol Calc (test code = 193 mg/dL 0-99 H 34534-6) Comment: (test code = 53721-9) [employer] Description: Comp. Metabolic Panel (14)2019-07-04 01:03:00 Test Item Value Reference Range Interpretation Comments Glucose (test code = 2345-7) 262 mg/dL 65-99 H BUN (test code = 3094-0) 27 mg/dL 6-24 H Creatinine (test code = 1.46 mg/dL 0.76-1.27 H 2160-0) eGFR If NonAfricn Am (test 57 mL/min/1.73 >59 L code = 93551-0) eGFR If Africn Am (test code = 66 mL/min/1.73 >59 81512-0) BUN/Creatinine Ratio (test 18 9-20 code = 3097-3) Sodium (test code = 2951-2) 140 mmol/L 134-144 Potassium (test code = 2823-3) 4.4 mmol/L 3.5-5.2 Chloride (test code = 2075-0) 106 mmol/L 96-106 Carbon Dioxide, Total (test 23 mmol/L 20-29 code = 8-9) Calcium (test code = 64873-4) 8.7 mg/dL 8.7-10.2 Protein, Total (test code = 5.3 g/dL 6.0-8.5 L 2885-2) Albumin (test code = 1751-7) 3.0 g/dL 4.0-5.0 L Globulin, Total (test code = 2.3 g/dL 1.5-4.5 70076-8) A/G Ratio (test code = 1759-0) 1.3 1.2-2.2 Bilirubin, Total (test code = 0.5 mg/dL 0.0-1.2 1975-2) Alkaline Phosphatase (test 95 IU/L 39-117 code = 6768-6) AST (SGOT) (test code = 16 IU/L 0-40 1920-8) ALT (SGPT) (test code = 23 IU/L 0-44 1742-6) [facility] Description: Comp. Metabolic Panel (14)2019-07-04 01:03:00 Test Item Value Reference Range Interpretation Comments Glucose (test code = 2345-7) 262 mg/dL 65-99 H BUN (test code = 3094-0) 27 mg/dL 6-24 H Creatinine (test code = 1.46 mg/dL 0.76-1.27 H 2160-0) eGFR If NonAfricn Am (test 57 mL/min/1.73 >59 L code = 63707-8) eGFR If Africn Am (test code = 66 mL/min/1.73 >59 56560-5) BUN/Creatinine Ratio (test 18 9-20 code = 3097-3) Sodium (test code = 2951-2) 140 mmol/L 134-144 Potassium (test code = 2823-3) 4.4 mmol/L 3.5-5.2 Chloride (test code = 2075-0) 106 mmol/L 96-106 Carbon Dioxide, Total (test 23 mmol/L 20-29 code = 2028-9) Calcium (test code = 95819-6) 8.7 mg/dL 8.7-10.2 Protein, Total (test code = 5.3 g/dL 6.0-8.5 L 2885-2) Albumin (test code = 1751-7) 3.0 g/dL 4.0-5.0 L Globulin, Total (test code = 2.3 g/dL 1.5-4.5 75769-7) A/G Ratio (test code = 1759-0) 1.3 1.2-2.2 Bilirubin, Total (test code = 0.5 mg/dL 0.0-1.2 1974-2) Alkaline Phosphatase (test 95 IU/L 39-117 code = 6768-6) AST (SGOT) (test code = 16 IU/L 0-40 1920-8) ALT (SGPT) (test code = 23 IU/L 0-44 1742-6) [facility] Description: Comp. Metabolic Panel (14)2019-07-04 01:03:00 Test Item Value Reference Range Interpretation Comments Glucose (test code = 2345-7) 262 mg/dL 65-99 H BUN (test code = 3094-0) 27 mg/dL 6-24 H Creatinine (test code = 1.46 mg/dL 0.76-1.27 H 2160-0) eGFR If NonAfricn Am (test 57 mL/min/1.73 >59 L code = 30791-8) eGFR If Africn Am (test code = 66 mL/min/1.73 >59 13537-2) BUN/Creatinine Ratio (test 18 9-20 code = 3097-3) Sodium (test code = 2951-2) 140 mmol/L 134-144 Potassium (test code = 2823-3) 4.4 mmol/L 3.5-5.2 Chloride (test code = 2075-0) 106 mmol/L 96-106 Carbon Dioxide, Total (test 23 mmol/L 20-29 code = 8-9) Calcium (test code = 17388-3) 8.7 mg/dL 8.7-10.2 Protein, Total (test code = 5.3 g/dL 6.0-8.5 L 2885-2) Albumin (test code = 1751-7) 3.0 g/dL 4.0-5.0 L Globulin, Total (test code = 2.3 g/dL 1.5-4.5 03306-8) A/G Ratio (test code = 1759-0) 1.3 1.2-2.2 Bilirubin, Total (test code = 0.5 mg/dL 0.0-1.2 1974-04) Alkaline Phosphatase (test 95 IU/L 39-117 code = 6768-6) AST (SGOT) (test code = 16 IU/L 0-40 1920-8) ALT (SGPT) (test code = 23 IU/L 0-44 1742-6) [facility] Description: Comp. Metabolic Panel (14)2019-07-04 01:03:00 Test Item Value Reference Range Interpretation Comments Glucose (test code = 2345-7) 262 mg/dL 65-99 H BUN (test code = 3094-0) 27 mg/dL 6-24 H Creatinine (test code = 1.46 mg/dL 0.76-1.27 H 2160-0) eGFR If NonAfricn Am (test 57 mL/min/1.73 >59 L code = 04758-5) eGFR If Africn Am (test code = 66 mL/min/1.73 >59 89994-3) BUN/Creatinine Ratio (test 18 9-20 code = 3097-3) Sodium (test code = 2951-2) 140 mmol/L 134-144 Potassium (test code = 2823-3) 4.4 mmol/L 3.5-5.2 Chloride (test code = 2075-0) 106 mmol/L 96-106 Carbon Dioxide, Total (test 23 mmol/L 20-29 code = 8-9) Calcium (test code = 23877-5) 8.7 mg/dL 8.7-10.2 Protein, Total (test code = 5.3 g/dL 6.0-8.5 L 2885-2) Albumin (test code = 1751-7) 3.0 g/dL 4.0-5.0 L Globulin, Total (test code = 2.3 g/dL 1.5-4.5 50505-2) A/G Ratio (test code = 1759-0) 1.3 1.2-2.2 Bilirubin, Total (test code = 0.5 mg/dL 0.0-1.2 1974-04) Alkaline Phosphatase (test 95 IU/L 39-117 code = 6768-6) AST (SGOT) (test code = 16 IU/L 0-40 1920-8) ALT (SGPT) (test code = 23 IU/L 0-44 1742-6) [facility] Description: Comp. Metabolic Panel (14)2019-07-04 01:03:00 Test Item Value Reference Range Interpretation Comments Glucose (test code = 2345-7) 262 mg/dL 65-99 H BUN (test code = 3094-0) 27 mg/dL 6-24 H Creatinine (test code = 1.46 mg/dL 0.76-1.27 H 2160-0) eGFR If NonAfricn Am (test 57 mL/min/1.73 >59 L code = 86486-0) eGFR If Africn Am (test code = 66 mL/min/1.73 >59 64892-7) BUN/Creatinine Ratio (test 18 9-20 code = 3097-3) Sodium (test code = 2951-2) 140 mmol/L 134-144 Potassium (test code = 2823-3) 4.4 mmol/L 3.5-5.2 Chloride (test code = 2075-0) 106 mmol/L 96-106 Carbon Dioxide, Total (test 23 mmol/L 20-29 code = 8-9) Calcium (test code = 80035-6) 8.7 mg/dL 8.7-10.2 Protein, Total (test code = 5.3 g/dL 6.0-8.5 L 2885-2) Albumin (test code = 1751-7) 3.0 g/dL 4.0-5.0 L Globulin, Total (test code = 2.3 g/dL 1.5-4.5 16829-8) A/G Ratio (test code = 1759-0) 1.3 1.2-2.2 Bilirubin, Total (test code = 0.5 mg/dL 0.0-1.2 1975-2) Alkaline Phosphatase (test 95 IU/L 39-117 code = 6768-6) AST (SGOT) (test code = 16 IU/L 0-40 1920-8) ALT (SGPT) (test code = 23 IU/L 0-44 2-6) [facility] Description: Comp. Metabolic Panel (14)2019-07-04 01:03:00 Test Item Value Reference Range Interpretation Comments Glucose (test code = 2345-7) 262 mg/dL 65-99 H BUN (test code = 3094-0) 27 mg/dL 6-24 H Creatinine (test code = 1.46 mg/dL 0.76-1.27 H 2160-0) eGFR If NonAfricn Am (test 57 mL/min/1.73 >59 L code = 20866-5) eGFR If Africn Am (test code = 66 mL/min/1.73 >59 46866-6) BUN/Creatinine Ratio (test 18 9-20 code = 3097-3) Sodium (test code = 2951-2) 140 mmol/L 134-144 Potassium (test code = 2823-3) 4.4 mmol/L 3.5-5.2 Chloride (test code = 2075-0) 106 mmol/L 96-106 Carbon Dioxide, Total (test 23 mmol/L 20-29 code = 8-9) Calcium (test code = 71478-5) 8.7 mg/dL 8.7-10.2 Protein, Total (test code = 5.3 g/dL 6.0-8.5 L 2885-2) Albumin (test code = 1751-7) 3.0 g/dL 4.0-5.0 L Globulin, Total (test code = 2.3 g/dL 1.5-4.5 30290-6) A/G Ratio (test code = 1759-0) 1.3 1.2-2.2 Bilirubin, Total (test code = 0.5 mg/dL 0.0-1.2 1975-2) Alkaline Phosphatase (test 95 IU/L 39-117 code = 6768-6) AST (SGOT) (test code = 16 IU/L 0-40 1920-8) ALT (SGPT) (test code = 23 IU/L 0-44 1742-6) [facility] Description: Comp. Metabolic Panel (2019-07-04 01:03:00 Test Item Value Reference Range Interpretation Comments Glucose (test code = 2345-7) 262 mg/dL 65-99 H BUN (test code = 3094-0) 27 mg/dL 6-24 H Creatinine (test code = 1.46 mg/dL 0.76-1.27 H 2160-0) eGFR If NonAfricn Am (test 57 mL/min/1.73 >59 L code = 94789-7) eGFR If Africn Am (test code = 66 mL/min/1.73 >59 13909-0) BUN/Creatinine Ratio (test 12-16 code = 3097-3) Sodium (test code = 2951-2) 140 mmol/L 134-144 Potassium (test code = 2823-3) 4.4 mmol/L 3.5-5.2 Chloride (test code = 2075-0) 106 mmol/L 96-106 Carbon Dioxide, Total (test 23 mmol/L 20-29 code = 2028-9) Calcium (test code = 43989-9) 8.7 mg/dL 8.7-10.2 Protein, Total (test code = 5.3 g/dL 6.0-8.5 L 2885-2) Albumin (test code = 1751-7) 3.0 g/dL 4.0-5.0 L Globulin, Total (test code = 2.3 g/dL 1.5-4.5 72249-4) A/G Ratio (test code = 1759-0) 1.3 1.2-2.2 Bilirubin, Total (test code = 0.5 mg/dL 0.0-1.2 1975-2) Alkaline Phosphatase (test 95 IU/L 39-117 code = 6768-6) AST (SGOT) (test code = 16 IU/L 0-40 1920-8) ALT (SGPT) (test code = 23 IU/L 0-44 1742-6) [facility] Description: Comp. Metabolic Panel (14)2019-07-04 01:03:00 Test Item Value Reference Range Interpretation Comments Glucose (test code = 2345-7) 262 mg/dL 65-99 H BUN (test code = 3094-0) 27 mg/dL 6-24 H Creatinine (test code = 1.46 mg/dL 0.76-1.27 H 2160-0) eGFR If NonAfricn Am (test 57 mL/min/1.73 >59 L code = 92624-4) eGFR If Africn Am (test code = 66 mL/min/1.73 >59 66921-7) BUN/Creatinine Ratio (test 12-16 code = 3097-3) Sodium (test code = 2951-2) 140 mmol/L 134-144 Potassium (test code = 2823-3) 4.4 mmol/L 3.5-5.2 Chloride (test code = 2075-0) 106 mmol/L 96-106 Carbon Dioxide, Total (test 23 mmol/L - code = 2027-) Calcium (test code = 06126-1) 8.7 mg/dL 8.7-10.2 Protein, Total (test code = 5.3 g/dL 6.0-8.5 L 2885-2) Albumin (test code = 1751-7) 3.0 g/dL 4.0-5.0 L Globulin, Total (test code = 2.3 g/dL 1.5-4.5 35046-1) A/G Ratio (test code = 1759-0) 1.3 1.2-2.2 Bilirubin, Total (test code = 0.5 mg/dL 0.0-1.2 1975-2) Alkaline Phosphatase (test 95 IU/L 39-117 code = 6768-6) AST (SGOT) (test code = 16 IU/L 0-40 1920-8) ALT (SGPT) (test code = 23 IU/L 0-44 1742-6) [facility] Description: Comp. Metabolic Panel (14)2019-07-04 01:03:00 Test Item Value Reference Range Interpretation Comments Glucose (test code = 2345-7) 262 mg/dL 65-99 H BUN (test code = 3094-0) 27 mg/dL 6-24 H Creatinine (test code = 1.46 mg/dL 0.76-1.27 H 2160-0) eGFR If NonAfricn Am (test 57 mL/min/1.73 >59 L code = 75755-8) eGFR If Africn Am (test code = 66 mL/min/1.73 >59 86383-7) BUN/Creatinine Ratio (test 18 -20 code = 3097-3) Sodium (test code = 2951-2) 140 mmol/L 134-144 Potassium (test code = 2823-3) 4.4 mmol/L 3.5-5.2 Chloride (test code = 2075-0) 106 mmol/L 96-106 Carbon Dioxide, Total (test 23 mmol/L -29 code = 2027-11) Calcium (test code = 70662-7) 8.7 mg/dL 8.7-10.2 Protein, Total (test code = 5.3 g/dL 6.0-8.5 L 2885-2) Albumin (test code = 1751-7) 3.0 g/dL 4.0-5.0 L Globulin, Total (test code = 2.3 g/dL 1.5-4.5 83959-2) A/G Ratio (test code = 1759-0) 1.3 1.2-2.2 Bilirubin, Total (test code = 0.5 mg/dL 0.0-1.2 1975-2) Alkaline Phosphatase (test 95 IU/L 39-117 code = 6768-6) AST (SGOT) (test code = 16 IU/L 0-40 1920-8) ALT (SGPT) (test code = 23 IU/L 0-44 1742-6) [facility] Description: Comp. Metabolic Panel (142019-07-04 01:03:00 Test Item Value Reference Range Interpretation Comments Glucose (test code = 2345-7) 262 mg/dL 65-99 H BUN (test code = 3094-0) 27 mg/dL 6-24 H Creatinine (test code = 1.46 mg/dL 0.76-1.27 H 2160-0) eGFR If NonAfricn Am (test 57 mL/min/1.73 >59 L code = 76178-2) eGFR If Africn Am (test code = 66 mL/min/1.73 >59 11859-9) BUN/Creatinine Ratio (test 18 - code = 3097-3) Sodium (test code = 2951-2) 140 mmol/L 134-144 Potassium (test code = 2823-3) 4.4 mmol/L 3.5-5.2 Chloride (test code = 2075-0) 106 mmol/L 96-106 Carbon Dioxide, Total (test 23 mmol/L 20-29 code = 2027-9) Calcium (test code = 48216-7) 8.7 mg/dL 8.7-10.2 Protein, Total (test code = 5.3 g/dL 6.0-8.5 L 2885-2) Albumin (test code = 1751-7) 3.0 g/dL 4.0-5.0 L Globulin, Total (test code = 2.3 g/dL 1.5-4.5 25470-6) A/G Ratio (test code = 1759-0) 1.3 1.2-2.2 Bilirubin, Total (test code = 0.5 mg/dL 0.0-1.2 1975-2) Alkaline Phosphatase (test 95 IU/L 39-117 code = 6768-6) AST (SGOT) (test code = 16 IU/L 0-40 1920-8) ALT (SGPT) (test code = 23 IU/L 0-44 1742-6) [facility] Description: Comp. Metabolic Panel (2019-07-04 01:03:00 Test Item Value Reference Range Interpretation Comments Glucose (test code = 2345-7) 262 mg/dL 65-99 H BUN (test code = 3094-0) 27 mg/dL 6-24 H Creatinine (test code = 1.46 mg/dL 0.76-1.27 H 2160-0) eGFR If NonAfricn Am (test 57 mL/min/1.73 >59 L code = 62096-0) eGFR If Africn Am (test code = 66 mL/min/1.73 >59 20040-2) BUN/Creatinine Ratio (test 18 9-20 code = 3097-3) Sodium (test code = 2951-2) 140 mmol/L 134-144 Potassium (test code = 2823-3) 4.4 mmol/L 3.5-5.2 Chloride (test code = 2075-0) 106 mmol/L 96-106 Carbon Dioxide, Total (test 23 mmol/L 20-29 code = 2028-9) Calcium (test code = 15563-7) 8.7 mg/dL 8.7-10.2 Protein, Total (test code = 5.3 g/dL 6.0-8.5 L 2885-2) Albumin (test code = 1751-7) 3.0 g/dL 4.0-5.0 L Globulin, Total (test code = 2.3 g/dL 1.5-4.5 10230-9) A/G Ratio (test code = 1759-0) 1.3 1.2-2.2 Bilirubin, Total (test code = 0.5 mg/dL 0.0-1.2 1974-) Alkaline Phosphatase (test 95 IU/L 39-117 code = 6768-6) AST (SGOT) (test code = 16 IU/L 0-40 1920-8) ALT (SGPT) (test code = 23 IU/L 0-44 1742-6) [facility] Description: Comp. Metabolic Panel (142019-07-04 01:03:00 Test Item Value Reference Range Interpretation Comments Glucose (test code = 2345-7) 262 mg/dL 65-99 H BUN (test code = 3094-0) 27 mg/dL 6-24 H Creatinine (test code = 1.46 mg/dL 0.76-1.27 H 2160-0) eGFR If NonAfricn Am (test 57 mL/min/1.73 >59 L code = 81386-7) eGFR If Africn Am (test code = 66 mL/min/1.73 >59 46928-5) BUN/Creatinine Ratio (test 18 9-20 code = 3097-3) Sodium (test code = 2951-2) 140 mmol/L 134-144 Potassium (test code = 2823-3) 4.4 mmol/L 3.5-5.2 Chloride (test code = 2075-0) 106 mmol/L 96-106 Carbon Dioxide, Total (test 23 mmol/L 20-29 code = 2028-9) Calcium (test code = 26238-8) 8.7 mg/dL 8.7-10.2 Protein, Total (test code = 5.3 g/dL 6.0-8.5 L 2885-2) Albumin (test code = 1751-7) 3.0 g/dL 4.0-5.0 L Globulin, Total (test code = 2.3 g/dL 1.5-4.5 97168-9) A/G Ratio (test code = 1759-0) 1.3 1.2-2.2 Bilirubin, Total (test code = 0.5 mg/dL 0.0-1.2 1974-04) Alkaline Phosphatase (test 95 IU/L 39-117 code = 6768-6) AST (SGOT) (test code = 16 IU/L 0-40 1920-8) ALT (SGPT) (test code = 23 IU/L 0-44 1742-6) [facility] Description: Comp. Metabolic Panel (14)2019-07-04 01:03:00 Test Item Value Reference Range Interpretation Comments Glucose (test code = 2345-7) 262 mg/dL 65-99 H BUN (test code = 3094-0) 27 mg/dL 6-24 H Creatinine (test code = 1.46 mg/dL 0.76-1.27 H 2160-0) eGFR If NonAfricn Am (test 57 mL/min/1.73 >59 L code = 82457-4) eGFR If Africn Am (test code = 66 mL/min/1.73 >59 86957-4) BUN/Creatinine Ratio (test 18 9-20 code = 3097-3) Sodium (test code = 2951-2) 140 mmol/L 134-144 Potassium (test code = 2823-3) 4.4 mmol/L 3.5-5.2 Chloride (test code = 2075-0) 106 mmol/L 96-106 Carbon Dioxide, Total (test 23 mmol/L 20-29 code = 2028-9) Calcium (test code = 39824-9) 8.7 mg/dL 8.7-10.2 Protein, Total (test code = 5.3 g/dL 6.0-8.5 L 2885-2) Albumin (test code = 1751-7) 3.0 g/dL 4.0-5.0 L Globulin, Total (test code = 2.3 g/dL 1.5-4.5 62964-4) A/G Ratio (test code = 1759-0) 1.3 1.2-2.2 Bilirubin, Total (test code = 0.5 mg/dL 0.0-1.2 1975-2) Alkaline Phosphatase (test 95 IU/L 39-117 code = 6768-6) AST (SGOT) (test code = 16 IU/L 0-40 1920-8) ALT (SGPT) (test code = 23 IU/L 0-44 1742-6) [facility] Description: Comp. Metabolic Panel (14)2019-07-04 01:03:00 Test Item Value Reference Range Interpretation Comments Glucose (test code = 2345-7) 262 mg/dL 65-99 H BUN (test code = 3094-0) 27 mg/dL 6-24 H Creatinine (test code = 1.46 mg/dL 0.76-1.27 H 2160-0) eGFR If NonAfricn Am (test 57 mL/min/1.73 >59 L code = 75874-7) eGFR If Africn Am (test code = 66 mL/min/1.73 >59 97343-6) BUN/Creatinine Ratio (test 18 9-20 code = 3097-3) Sodium (test code = 2951-2) 140 mmol/L 134-144 Potassium (test code = 2823-3) 4.4 mmol/L 3.5-5.2 Chloride (test code = 2075-0) 106 mmol/L 96-106 Carbon Dioxide, Total (test 23 mmol/L 20-29 code = 2028-9) Calcium (test code = 28215-2) 8.7 mg/dL 8.7-10.2 Protein, Total (test code = 5.3 g/dL 6.0-8.5 L 2885-2) Albumin (test code = 1751-7) 3.0 g/dL 4.0-5.0 L Globulin, Total (test code = 2.3 g/dL 1.5-4.5 98930-1) A/G Ratio (test code = 1759-0) 1.3 1.2-2.2 Bilirubin, Total (test code = 0.5 mg/dL 0.0-1.2 1975-2) Alkaline Phosphatase (test 95 IU/L 39-117 code = 6768-6) AST (SGOT) (test code = 16 IU/L 0-40 1920-8) ALT (SGPT) (test code = 23 IU/L 0-44 1742-6) [facility] Description: Comp. Metabolic Panel (142019-07-04 01:03:00 Test Item Value Reference Range Interpretation Comments Glucose (test code = 2345-7) 262 mg/dL 65-99 H BUN (test code = 3094-0) 27 mg/dL 6-24 H Creatinine (test code = 1.46 mg/dL 0.76-1.27 H 2160-0) eGFR If NonAfricn Am (test 57 mL/min/1.73 >59 L code = 86520-3) eGFR If Africn Am (test code = 66 mL/min/1.73 >59 37579-2) BUN/Creatinine Ratio (test 12-16 code = 3097-3) Sodium (test code = 2951-2) 140 mmol/L 134-144 Potassium (test code = 2823-3) 4.4 mmol/L 3.5-5.2 Chloride (test code = 2075-0) 106 mmol/L 96-106 Carbon Dioxide, Total (test 23 mmol/L 20-29 code = 2028-9) Calcium (test code = 35238-6) 8.7 mg/dL 8.7-10.2 Protein, Total (test code = 5.3 g/dL 6.0-8.5 L 2885-2) Albumin (test code = 1751-7) 3.0 g/dL 4.0-5.0 L Globulin, Total (test code = 2.3 g/dL 1.5-4.5 35951-0) A/G Ratio (test code = 1759-0) 1.3 1.2-2.2 Bilirubin, Total (test code = 0.5 mg/dL 0.0-1.2 1975-2) Alkaline Phosphatase (test 95 IU/L 39-117 code = 6768-6) AST (SGOT) (test code = 16 IU/L 0-40 1920-8) ALT (SGPT) (test code = 23 IU/L 0-44 1742-6) [facility] Description: Comp. Metabolic Panel (14)2019-07-04 01:03:00 Test Item Value Reference Range Interpretation Comments Glucose (test code = 2345-7) 262 mg/dL 65-99 H BUN (test code = 3094-0) 27 mg/dL 6-24 H Creatinine (test code = 1.46 mg/dL 0.76-1.27 H 2160-0) eGFR If NonAfricn Am (test 57 mL/min/1.73 >59 L code = 08779-9) eGFR If Africn Am (test code = 66 mL/min/1.73 >59 69113-0) BUN/Creatinine Ratio (test 12-16 code = 3097-3) Sodium (test code = 2951-2) 140 mmol/L 134-144 Potassium (test code = 2823-3) 4.4 mmol/L 3.5-5.2 Chloride (test code = 2075-0) 106 mmol/L 96-106 Carbon Dioxide, Total (test 23 mmol/L 20-29 code = 2028-9) Calcium (test code = 21360-9) 8.7 mg/dL 8.7-10.2 Protein, Total (test code = 5.3 g/dL 6.0-8.5 L 2885-2) Albumin (test code = 1751-7) 3.0 g/dL 4.0-5.0 L Globulin, Total (test code = 2.3 g/dL 1.5-4.5 48633-4) A/G Ratio (test code = 1759-0) 1.3 1.2-2.2 Bilirubin, Total (test code = 0.5 mg/dL 0.0-1.2 1975-2) Alkaline Phosphatase (test 95 IU/L 39-117 code = 6768-6) AST (SGOT) (test code = 16 IU/L 0-40 1920-8) ALT (SGPT) (test code = 23 IU/L 0-44 1742-6) [facility] Description: Comp. Metabolic Panel (14)2019-07-04 01:03:00 Test Item Value Reference Range Interpretation Comments Glucose (test code = 2345-7) 262 mg/dL 65-99 H BUN (test code = 3094-0) 27 mg/dL 6-24 H Creatinine (test code = 1.46 mg/dL 0.76-1.27 H 2160-0) eGFR If NonAfricn Am (test 57 mL/min/1.73 >59 L code = 55695-4) eGFR If Africn Am (test code = 66 mL/min/1.73 >59 28668-4) BUN/Creatinine Ratio (test 12-16 code = 3097-3) Sodium (test code = 2951-2) 140 mmol/L 134-144 Potassium (test code = 2823-3) 4.4 mmol/L 3.5-5.2 Chloride (test code = 2075-0) 106 mmol/L 96-106 Carbon Dioxide, Total (test 23 mmol/L 20-29 code = 2027-9) Calcium (test code = 92228-8) 8.7 mg/dL 8.7-10.2 Protein, Total (test code = 5.3 g/dL 6.0-8.5 L 2885-2) Albumin (test code = 1751-7) 3.0 g/dL 4.0-5.0 L Globulin, Total (test code = 2.3 g/dL 1.5-4.5 67615-9) A/G Ratio (test code = 1759-0) 1.3 1.2-2.2 Bilirubin, Total (test code = 0.5 mg/dL 0.0-1.2 1975-2) Alkaline Phosphatase (test 95 IU/L 39-117 code = 6768-6) AST (SGOT) (test code = 16 IU/L 0-40 1920-8) ALT (SGPT) (test code = 23 IU/L 0-44 1742-6) [facility] Description: Comp. Metabolic Panel (14)2019-07-04 01:03:00 Test Item Value Reference Range Interpretation Comments Glucose (test code = 2345-7) 262 mg/dL 65-99 H BUN (test code = 3094-0) 27 mg/dL 6-24 H Creatinine (test code = 1.46 mg/dL 0.76-1.27 H 2160-0) eGFR If NonAfricn Am (test 57 mL/min/1.73 >59 L code = 34516-4) eGFR If Africn Am (test code = 66 mL/min/1.73 >59 12883-8) BUN/Creatinine Ratio (test 18 9-20 code = 3097-3) Sodium (test code = 2951-2) 140 mmol/L 134-144 Potassium (test code = 2823-3) 4.4 mmol/L 3.5-5.2 Chloride (test code = 2075-0) 106 mmol/L 96-106 Carbon Dioxide, Total (test 23 mmol/L 20-29 code = 8-9) Calcium (test code = 76564-2) 8.7 mg/dL 8.7-10.2 Protein, Total (test code = 5.3 g/dL 6.0-8.5 L 2885-2) Albumin (test code = 1751-7) 3.0 g/dL 4.0-5.0 L Globulin, Total (test code = 2.3 g/dL 1.5-4.5 20519-3) A/G Ratio (test code = 1759-0) 1.3 1.2-2.2 Bilirubin, Total (test code = 0.5 mg/dL 0.0-1.2 1975-2) Alkaline Phosphatase (test 95 IU/L 39-117 code = 6768-6) AST (SGOT) (test code = 16 IU/L 0-40 1920-8) ALT (SGPT) (test code = 23 IU/L 0-44 1742-6) [facility] Description: Comp. Metabolic Panel (14)2019-07-04 01:03:00 Test Item Value Reference Range Interpretation Comments Glucose (test code = 2345-7) 262 mg/dL 65-99 H BUN (test code = 3094-0) 27 mg/dL 6-24 H Creatinine (test code = 1.46 mg/dL 0.76-1.27 H 2160-0) eGFR If NonAfricn Am (test 57 mL/min/1.73 >59 L code = 63049-0) eGFR If Africn Am (test code = 66 mL/min/1.73 >59 19475-4) BUN/Creatinine Ratio (test 18 9-20 code = 3097-3) Sodium (test code = 2951-2) 140 mmol/L 134-144 Potassium (test code = 2823-3) 4.4 mmol/L 3.5-5.2 Chloride (test code = 2075-0) 106 mmol/L 96-106 Carbon Dioxide, Total (test 23 mmol/L 20-29 code = 2028-9) Calcium (test code = 12618-4) 8.7 mg/dL 8.7-10.2 Protein, Total (test code = 5.3 g/dL 6.0-8.5 L 2885-2) Albumin (test code = 1751-7) 3.0 g/dL 4.0-5.0 L Globulin, Total (test code = 2.3 g/dL 1.5-4.5 10488-4) A/G Ratio (test code = 1759-0) 1.3 1.2-2.2 Bilirubin, Total (test code = 0.5 mg/dL 0.0-1.2 1974-) Alkaline Phosphatase (test 95 IU/L 39-117 code = 6768-6) AST (SGOT) (test code = 16 IU/L 0-40 1920-8) ALT (SGPT) (test code = 23 IU/L 0-44 1742-6) [facility] Description: Comp. Metabolic Panel (14)2019-07-04 01:03:00 Test Item Value Reference Range Interpretation Comments Glucose (test code = 2345-7) 262 mg/dL 65-99 H BUN (test code = 3094-0) 27 mg/dL 6-24 H Creatinine (test code = 1.46 mg/dL 0.76-1.27 H 2160-0) eGFR If NonAfricn Am (test 57 mL/min/1.73 >59 L code = 42245-3) eGFR If Africn Am (test code = 66 mL/min/1.73 >59 54485-9) BUN/Creatinine Ratio (test 18 9-20 code = 3097-3) Sodium (test code = 2951-2) 140 mmol/L 134-144 Potassium (test code = 2823-3) 4.4 mmol/L 3.5-5.2 Chloride (test code = 2075-0) 106 mmol/L 96-106 Carbon Dioxide, Total (test 23 mmol/L 20-29 code = 2028-9) Calcium (test code = 20724-0) 8.7 mg/dL 8.7-10.2 Protein, Total (test code = 5.3 g/dL 6.0-8.5 L 2885-2) Albumin (test code = 1751-7) 3.0 g/dL 4.0-5.0 L Globulin, Total (test code = 2.3 g/dL 1.5-4.5 80528-8) A/G Ratio (test code = 1759-0) 1.3 1.2-2.2 Bilirubin, Total (test code = 0.5 mg/dL 0.0-1.2 1974-) Alkaline Phosphatase (test 95 IU/L 39-117 code = 6768-6) AST (SGOT) (test code = 16 IU/L 0-40 1920-8) ALT (SGPT) (test code = 23 IU/L 0-44 1742-6) [facility] (14)2019-07-04 01:03:00 Test Item Value Reference Range Interpretation Comments Glucose (test code = 2345-7) 262 mg/dL 65-99 H BUN (test code = 3094-0) 27 mg/dL 6-24 H Creatinine (test code = 1.46 mg/dL 0.76-1.27 H 2160-0) eGFR If NonAfricn Am (test 57 mL/min/1.73 >59 L code = 70808-6) eGFR If Africn Am (test code = 66 mL/min/1.73 >59 82434-8) BUN/Creatinine Ratio (test 18 9-20 code = 3097-3) Sodium (test code = 2951-2) 140 mmol/L 134-144 Potassium (test code = 2823-3) 4.4 mmol/L 3.5-5.2 Chloride (test code = 2075-0) 106 mmol/L 96-106 Carbon Dioxide, Total (test 23 mmol/L 20-29 code = 2028-9) Calcium (test code = 46132-5) 8.7 mg/dL 8.7-10.2 Protein, Total (test code = 5.3 g/dL 6.0-8.5 L 2885-2) Albumin (test code = 1751-7) 3.0 g/dL 4.0-5.0 L Globulin, Total (test code = 2.3 g/dL 1.5-4.5 25833-8) A/G Ratio (test code = 1759-0) 1.3 1.2-2.2 Bilirubin, Total (test code = 0.5 mg/dL 0.0-1.2 1975-2) Alkaline Phosphatase (test 95 IU/L 39-117 code = 6768-6) AST (SGOT) (test code = 16 IU/L 0-40 1920-8) ALT (SGPT) (test code = 23 IU/L 0-44 1742-6) [facility] Description: Comp. Metabolic Panel (14)2019-07-04 01:03:00 Test Item Value Reference Range Interpretation Comments Glucose (test code = 2345-7) 262 mg/dL 65-99 H BUN (test code = 3094-0) 27 mg/dL 6-24 H Creatinine (test code = 1.46 mg/dL 0.76-1.27 H 2160-0) eGFR If NonAfricn Am (test 57 mL/min/1.73 >59 L code = 40637-1) eGFR If Africn Am (test code = 66 mL/min/1.73 >59 98911-9) BUN/Creatinine Ratio (test 18 9-20 code = 3097-3) Sodium (test code = 2951-2) 140 mmol/L 134-144 Potassium (test code = 2823-3) 4.4 mmol/L 3.5-5.2 Chloride (test code = 2075-0) 106 mmol/L 96-106 Carbon Dioxide, Total (test 23 mmol/L 20-29 code = 8-9) Calcium (test code = 97112-1) 8.7 mg/dL 8.7-10.2 Protein, Total (test code = 5.3 g/dL 6.0-8.5 L 2885-2) Albumin (test code = 1751-7) 3.0 g/dL 4.0-5.0 L Globulin, Total (test code = 2.3 g/dL 1.5-4.5 98520-6) A/G Ratio (test code = 1759-0) 1.3 1.2-2.2 Bilirubin, Total (test code = 0.5 mg/dL 0.0-1.2 1975-2) Alkaline Phosphatase (test 95 IU/L 39-117 code = 6768-6) AST (SGOT) (test code = 16 IU/L 0-40 1920-8) ALT (SGPT) (test code = 23 IU/L 0-44 1742-6) [facility] (14)2019-07-04 01:03:00 Test Item Value Reference Range Interpretation Comments Glucose (test code = 2345-7) 262 mg/dL 65-99 H BUN (test code = 3094-0) 27 mg/dL 6-24 H Creatinine (test code = 1.46 mg/dL 0.76-1.27 H 2160-0) eGFR If NonAfricn Am (test 57 mL/min/1.73 >59 L code = 88840-3) eGFR If Africn Am (test code = 66 mL/min/1.73 >59 70430-2) BUN/Creatinine Ratio (test 18 9-20 code = 3097-3) Sodium (test code = 2951-2) 140 mmol/L 134-144 Potassium (test code = 2823-3) 4.4 mmol/L 3.5-5.2 Chloride (test code = 2075-0) 106 mmol/L 96-106 Carbon Dioxide, Total (test 23 mmol/L 20-29 code = 2028-9) Calcium (test code = 85880-5) 8.7 mg/dL 8.7-10.2 Protein, Total (test code = 5.3 g/dL 6.0-8.5 L 2885-2) Albumin (test code = 1751-7) 3.0 g/dL 4.0-5.0 L Globulin, Total (test code = 2.3 g/dL 1.5-4.5 65342-7) A/G Ratio (test code = 1759-0) 1.3 1.2-2.2 Bilirubin, Total (test code = 0.5 mg/dL 0.0-1.2 1975-2) Alkaline Phosphatase (test 95 IU/L 39-117 code = 6768-6) AST (SGOT) (test code = 16 IU/L 0-40 1920-8) ALT (SGPT) (test code = 23 IU/L 0-44 1742-6) [facility] Description: Comp. Metabolic Panel (142019-07-04 01:03:00 Test Item Value Reference Range Interpretation Comments Glucose (test code = 2345-7) 262 mg/dL 65-99 H BUN (test code = 3094-0) 27 mg/dL 6-24 H Creatinine (test code = 1.46 mg/dL 0.76-1.27 H 2160-0) eGFR If NonAfricn Am (test 57 mL/min/1.73 >59 L code = 53447-3) eGFR If Africn Am (test code = 66 mL/min/1.73 >59 41653-3) BUN/Creatinine Ratio (test 18 12-16 code = 3097-3) Sodium (test code = 2951-2) 140 mmol/L 134-144 Potassium (test code = 2823-3) 4.4 mmol/L 3.5-5.2 Chloride (test code = 2075-0) 106 mmol/L 96-106 Carbon Dioxide, Total (test 23 mmol/L 20-29 code = 2028-9) Calcium (test code = 81530-9) 8.7 mg/dL 8.7-10.2 Protein, Total (test code = 5.3 g/dL 6.0-8.5 L 2885-2) Albumin (test code = 1751-7) 3.0 g/dL 4.0-5.0 L Globulin, Total (test code = 2.3 g/dL 1.5-4.5 77504-4) A/G Ratio (test code = 1759-0) 1.3 1.2-2.2 Bilirubin, Total (test code = 0.5 mg/dL 0.0-1.2 1975-2) Alkaline Phosphatase (test 95 IU/L 39-117 code = 6768-6) AST (SGOT) (test code = 16 IU/L 0-40 1920-8) ALT (SGPT) (test code = 23 IU/L 0-44 1742-6) [facility] Description: Comp. Metabolic Panel (14)2019-07-04 01:03:00 Test Item Value Reference Range Interpretation Comments Glucose (test code = 2345-7) 262 mg/dL 65-99 H BUN (test code = 3094-0) 27 mg/dL 6-24 H Creatinine (test code = 1.46 mg/dL 0.76-1.27 H 2160-0) eGFR If NonAfricn Am (test 57 mL/min/1.73 >59 L code = 89559-3) eGFR If Africn Am (test code = 66 mL/min/1.73 >59 52970-8) BUN/Creatinine Ratio (test 18 12-16 code = 3097-3) Sodium (test code = 2951-2) 140 mmol/L 134-144 Potassium (test code = 2823-3) 4.4 mmol/L 3.5-5.2 Chloride (test code = 2075-0) 106 mmol/L 96-106 Carbon Dioxide, Total (test 23 mmol/L - code = 2027-) Calcium (test code = 41565-6) 8.7 mg/dL 8.7-10.2 Protein, Total (test code = 5.3 g/dL 6.0-8.5 L 2885-2) Albumin (test code = 1751-7) 3.0 g/dL 4.0-5.0 L Globulin, Total (test code = 2.3 g/dL 1.5-4.5 75046-0) A/G Ratio (test code = 1759-0) 1.3 1.2-2.2 Bilirubin, Total (test code = 0.5 mg/dL 0.0-1.2 1975-2) Alkaline Phosphatase (test 95 IU/L 39-117 code = 6768-6) AST (SGOT) (test code = 16 IU/L 0-40 1920-8) ALT (SGPT) (test code = 23 IU/L 0-44 1742-6) [facility] Description: Comp. Metabolic Panel (14)2019-07-04 01:03:00 Test Item Value Reference Range Interpretation Comments Glucose (test code = 2345-7) 262 mg/dL 65-99 H BUN (test code = 3094-0) 27 mg/dL 6-24 H Creatinine (test code = 1.46 mg/dL 0.76-1.27 H 2160-0) eGFR If NonAfricn Am (test 57 mL/min/1.73 >59 L code = 56054-9) eGFR If Africn Am (test code = 66 mL/min/1.73 >59 29083-8) BUN/Creatinine Ratio (test 18 - code = 3097-3) Sodium (test code = 2951-2) 140 mmol/L 134-144 Potassium (test code = 2823-3) 4.4 mmol/L 3.5-5.2 Chloride (test code = 2075-0) 106 mmol/L 96-106 Carbon Dioxide, Total (test 23 mmol/L -29 code = 2027-9) Calcium (test code = 02846-8) 8.7 mg/dL 8.7-10.2 Protein, Total (test code = 5.3 g/dL 6.0-8.5 L 2885-2) Albumin (test code = 1751-7) 3.0 g/dL 4.0-5.0 L Globulin, Total (test code = 2.3 g/dL 1.5-4.5 52386-2) A/G Ratio (test code = 1759-0) 1.3 1.2-2.2 Bilirubin, Total (test code = 0.5 mg/dL 0.0-1.2 1975-2) Alkaline Phosphatase (test 95 IU/L 39-117 code = 6768-6) AST (SGOT) (test code = 16 IU/L 0-40 1920-8) ALT (SGPT) (test code = 23 IU/L 0-44 1742-6) [facility] Description: Comp. Metabolic Panel (14)2019-07-04 01:03:00 Test Item Value Reference Range Interpretation Comments Glucose (test code = 2345-7) 262 mg/dL 65-99 H BUN (test code = 3094-0) 27 mg/dL 6-24 H Creatinine (test code = 1.46 mg/dL 0.76-1.27 H 2160-0) eGFR If NonAfricn Am (test 57 mL/min/1.73 >59 L code = 81779-5) eGFR If Africn Am (test code = 66 mL/min/1.73 >59 91629-8) BUN/Creatinine Ratio (test 18 -20 code = 3097-3) Sodium (test code = 2951-2) 140 mmol/L 134-144 Potassium (test code = 2823-3) 4.4 mmol/L 3.5-5.2 Chloride (test code = 2075-0) 106 mmol/L 96-106 Carbon Dioxide, Total (test 23 mmol/L 20-29 code = 8-9) Calcium (test code = 69249-3) 8.7 mg/dL 8.7-10.2 Protein, Total (test code = 5.3 g/dL 6.0-8.5 L 2885-2) Albumin (test code = 1751-7) 3.0 g/dL 4.0-5.0 L Globulin, Total (test code = 2.3 g/dL 1.5-4.5 79755-9) A/G Ratio (test code = 1759-0) 1.3 1.2-2.2 Bilirubin, Total (test code = 0.5 mg/dL 0.0-1.2 1975-2) Alkaline Phosphatase (test 95 IU/L 39-117 code = 6768-6) AST (SGOT) (test code = 16 IU/L 0-40 1920-8) ALT (SGPT) (test code = 23 IU/L 0-44 1742-6) [facility]: Hemoglobin A1c/Hemoglobin.total in Blood 2019-04-05 09:29:00 Test Item Value Reference Range Interpretation Comments Hemoglobin A1c (test code 9.9 % 4.8-5.6 H = 4548-4) . Prediabetes: 5. 7 - 6.4 Diabetes : >6.4 Glycemic control for adults with diabetes: <7.0

P erformed by:
[facility] ()

[employer] Description: Hemoglobin A1c/Hemoglobin.total in Blood 2019-04-05 09:29:00 Test Item Value Reference Range Interpretation Comments Hemoglobin A1c (test code 9.9 % 4.8-5.6 H = 4548-4) . Prediabetes: 5. 7 - 6.4 Diabetes : >6.4 Glycemic control for adults with diabetes: <7.0

P erformed by:
[facility] ()

[facility] Description: Hemoglobin A1c/Hemoglobin.total in Blood 2019-04-05 09:29:00 Test Item Value Reference Range Interpretation Comments Hemoglobin A1c (test code 9.9 % 4.8-5.6 H = 4548-4) . Prediabetes: 5. 7 - 6.4 Diabetes : >6.4 Glycemic control for adults with diabetes: <7.0

P erformed by:
[facility] ()

[facility] Description: Hemoglobin A1c/Hemoglobin.total in Blood 2019-04-05 09:29:00 [...] with diabetes: <7.0

P erformed by:
[facility] ([place])

[facility] Description: Hemoglobin A1c/Hemoglobin.total in [...] with diabetes: <7.0

P erformed by:
[facility] ()

[facility] [employer] Description: Hemoglobin A1c/Hemoglobin.total in Blood 2019-04-05 09:29:00 Test Item Value Reference Range Interpretation Comments Hemoglobin A1c (test code 9.9 % 4.8-5.6 H = 4548-4) . Prediabetes: 5. 7 - 6.4 Diabetes : >6.4 Glycemic control for adults with diabetes: <7.0

P erformed by:
[facility] ()

[facility] [employer] Description: Hemoglobin A1c/Hemoglobin.total in Blood 2019-04-05 09:29:00 Test Item Value Reference Range Interpretation Comments Hemoglobin A1c (test code 9.9 % 4.8-5.6 H = 4548-4) . Prediabetes: 5. 7 - 6.4 Diabetes : >6.4 Glycemic control for adults with diabetes: <7.0

P erformed by:
[facility] ()

[employer] Description: Lipid [id number] 02:47:00 Test Item Value Reference Range Interpretation Comments Cholesterol, Total (test code = 392 mg/dL 100-199 H 3-3) Triglycerides (test code = 2571-8) 159 mg/dL 0-149 H HDL Cholesterol (test code = 42 mg/dL >39 2085-9) VLDL Cholesterol Renuka (test code = 32 mg/dL 5-40 17657-4) LDL Cholesterol Calc (test code = 318 mg/dL 0-99 H 45197-1) Comment: (test code = 64988-2) [employer] Description: Lipid [id number] 02:47:00 Test Item Value Reference Range Interpretation Comments Cholesterol, Total (test code = 392 mg/dL 100-199 H 2093-3) Triglycerides (test code = 2571-8) 159 mg/dL 0-149 H HDL Cholesterol (test code = 42 mg/dL >39 2085-9) VLDL Cholesterol Renuka (test code = 32 mg/dL 5-40 90892-6) LDL Cholesterol Calc (test code = 318 mg/dL 0-99 H 80462-4) Comment: (test code = 39686-7) [employer] Description: Lipid [id number] 02:47:00 Test Item Value Reference Range Interpretation Comments Cholesterol, Total (test code = 392 mg/dL 100-199 H 2093-3) Triglycerides (test code = 2571-8) 159 mg/dL 0-149 H HDL Cholesterol (test code = 42 mg/dL >39 2085-9) VLDL Cholesterol Renuka (test code = 32 mg/dL 5-40 09913-1) LDL Cholesterol Calc (test code = 318 mg/dL 0-99 H 77319-3) Comment: (test code = 80680-7) [employer] Description: Lipid [id number] 02:47:00 Test Item Value Reference Range Interpretation Comments Cholesterol, Total (test code = 392 mg/dL 100-199 H 2093-3) Triglycerides (test code = 2571-8) 159 mg/dL 0-149 H HDL Cholesterol (test code = 42 mg/dL >39 2085-9) VLDL Cholesterol Renuka (test code = 32 mg/dL 5-40 38616-3) LDL Cholesterol Calc (test code = 318 mg/dL 0-99 H 42574-1) Comment: (test code = 76309-1) [employer] Description: Lipid [id number] 02:47:00 Test Item Value Reference Range Interpretation Comments Cholesterol, Total (test code = 392 mg/dL 100-199 H 2093-3) Triglycerides (test code = 2571-8) 159 mg/dL 0-149 H HDL Cholesterol (test code = 42 mg/dL >39 2085-9) VLDL Cholesterol Renuka (test code = 32 mg/dL 5-40 85045-3) LDL Cholesterol Calc (test code = 318 mg/dL 0-99 H 72169-9) Comment: (test code = 67295-8) [employer] Description: Lipid [id number] 02:47:00 Test Item Value Reference Range Interpretation Comments Cholesterol, Total (test code = 392 mg/dL 100-199 H 2093-3) Triglycerides (test code = 2571-8) 159 mg/dL 0-149 H HDL Cholesterol (test code = 42 mg/dL >39 2085-9) VLDL Cholesterol Renuka (test code = 32 mg/dL 5-40 13625-9) LDL Cholesterol Calc (test code = 318 mg/dL 0-99 H 93710-3) Comment: (test code = 85908-3) [employer] Description: Lipid [id number] 02:47:00 Test Item Value Reference Range Interpretation Comments Cholesterol, Total (test code = 392 mg/dL 100-199 H 2093-3) Triglycerides (test code = 2571-8) 159 mg/dL 0-149 H HDL Cholesterol (test code = 42 mg/dL >39 2085-9) VLDL Cholesterol Renuka (test code = 32 mg/dL 5-40 18565-1) LDL Cholesterol Calc (test code = 318 mg/dL 0-99 H 66311-2) Comment: (test code = 46063-8) [employer] Description: Lipid [id number] 02:47:00 Test Item Value Reference Range Interpretation Comments Cholesterol, Total (test code = 392 mg/dL 100-199 H 2093-3) Triglycerides (test code = 2571-8) 159 mg/dL 0-149 H HDL Cholesterol (test code = 42 mg/dL >39 2085-9) VLDL Cholesterol Renuka (test code = 32 mg/dL 5-40 47932-4) LDL Cholesterol Calc (test code = 318 mg/dL 0-99 H 92141-8) Comment: (test code = 21058-9) [employer] Description: Lipid [id number] 02:47:00 Test Item Value Reference Range Interpretation Comments Cholesterol, Total (test code = 392 mg/dL 100-199 H 2093-3) Triglycerides (test code = 2571-8) 159 mg/dL 0-149 H HDL Cholesterol (test code = 42 mg/dL >39 2085-9) VLDL Cholesterol Renuka (test code = 32 mg/dL 5-40 77565-6) LDL Cholesterol Calc (test code = 318 mg/dL 0-99 H 52285-5) Comment: (test code = 44111-5) [employer] Description: Lipid [id number] 02:47:00 Test Item Value Reference Range Interpretation Comments Cholesterol, Total (test code = 392 mg/dL 100-199 H 2093-3) Triglycerides (test code = 2571-8) 159 mg/dL 0-149 H HDL Cholesterol (test code = 42 mg/dL >39 2085-9) VLDL Cholesterol Renuka (test code = 32 mg/dL 5-40 76891-9) LDL Cholesterol Calc (test code = 318 mg/dL 0-99 H 09910-0) Comment: (test code = 27627-9) [employer] Description: Lipid [id number] 02:47:00 Test Item Value Reference Range Interpretation Comments Cholesterol, Total (test code = 392 mg/dL 100-199 H 2093-3) Triglycerides (test code = 2571-8) 159 mg/dL 0-149 H HDL Cholesterol (test code = 42 mg/dL >39 2085-9) VLDL Cholesterol Renuka (test code = 32 mg/dL 5-40 47787-3) LDL Cholesterol Calc (test code = 318 mg/dL 0-99 H 62261-0) Comment: (test code = 69394-2) [facility] Description: Lipid [id number] 02:47:00 Test Item Value Reference Range Interpretation Comments Cholesterol, Total (test code = 392 mg/dL 100-199 H 2093-3) Triglycerides (test code = 2571-8) 159 mg/dL 0-149 H HDL Cholesterol (test code = 42 mg/dL >39 2085-9) VLDL Cholesterol Renuka (test code = 32 mg/dL 5-40 36792-6) LDL Cholesterol Calc (test code = 318 mg/dL 0-99 H 69954-4) Comment: (test code = 01920-1) [facility] Description: Lipid [id number] 02:47:00 Test Item Value Reference Range Interpretation Comments Cholesterol, Total (test code = 392 mg/dL 100-199 H 2093-3) Triglycerides (test code = 2571-8) 159 mg/dL 0-149 H HDL Cholesterol (test code = 42 mg/dL >39 2085-9) VLDL Cholesterol Renuka (test code = 32 mg/dL 5-40 11383-3) LDL Cholesterol Calc (test code = 318 mg/dL 0-99 H 48808-6) Comment: (test code = 12662-9) [facility] Description: Lipid [id number] 02:47:00 Test Item Value Reference Range Interpretation Comments Cholesterol, Total (test code = 392 mg/dL 100-199 H 2093-3) Triglycerides (test code = 2571-8) 159 mg/dL 0-149 H HDL Cholesterol (test code = 42 mg/dL >39 2085-9) VLDL Cholesterol Renuka (test code = 32 mg/dL 5-40 04702-8) LDL Cholesterol Calc (test code = 318 mg/dL 0-99 H 64755-4) Comment: (test code = 03243-7) [facility] Description: Lipid [id number] 02:47:00 Test Item Value Reference Range Interpretation Comments Cholesterol, Total (test code = 392 mg/dL 100-199 H 2093-3) Triglycerides (test code = 2571-8) 159 mg/dL 0-149 H HDL Cholesterol (test code = 42 mg/dL >39 2085-9) VLDL Cholesterol Renuka (test code = 32 mg/dL 5-40 47540-8) LDL Cholesterol Calc (test code = 318 mg/dL 0-99 H 01422-7) Comment: (test code = 44750-0) [facility] Description: Lipid [id number] 02:47:00 Test Item Value Reference Range Interpretation Comments Cholesterol, Total (test code = 392 mg/dL 100-199 H 2093-3) Triglycerides (test code = 2571-8) 159 mg/dL 0-149 H HDL Cholesterol (test code = 42 mg/dL >39 2085-9) VLDL Cholesterol Renuka (test code = 32 mg/dL 5-40 11582-8) LDL Cholesterol Calc (test code = 318 mg/dL 0-99 H 84446-0) Comment: (test code = 39241-6) [facility] Description: Lipid [id number] 02:47:00 Test Item Value Reference Range Interpretation Comments Cholesterol, Total (test code = 392 mg/dL 100-199 H 2093-3) Triglycerides (test code = 2571-8) 159 mg/dL 0-149 H HDL Cholesterol (test code = 42 mg/dL >39 2085-9) VLDL Cholesterol Renuka (test code = 32 mg/dL 5-40 97857-5) LDL Cholesterol Calc (test code = 318 mg/dL 0-99 H 01616-9) Comment: (test code = 38478-4) [facility] Description: Lipid [id number] 02:47:00 Test Item Value Reference Range Interpretation Comments Cholesterol, Total (test code = 392 mg/dL 100-199 H 2093-3) Triglycerides (test code = 2571-8) 159 mg/dL 0-149 H HDL Cholesterol (test code = 42 mg/dL >39 2085-9) VLDL Cholesterol Renuka (test code = 32 mg/dL 5-40 76648-8) LDL Cholesterol Calc (test code = 318 mg/dL 0-99 H 33651-0) Comment: (test code = 94450-9) [facility] Description: Lipid [id number] 02:47:00 Test Item Value Reference Range Interpretation Comments Cholesterol, Total (test code = 392 mg/dL 100-199 H 2093-3) Triglycerides (test code = 2571-8) 159 mg/dL 0-149 H HDL Cholesterol (test code = 42 mg/dL >39 2085-9) VLDL Cholesterol Renuka (test code = 32 mg/dL 5-40 74318-8) LDL Cholesterol Calc (test code = 318 mg/dL 0-99 H 77485-4) Comment: (test code = 06873-8) [facility] Description: Lipid [id number] 02:47:00 Test Item Value Reference Range Interpretation Comments Cholesterol, Total (test code = 392 mg/dL 100-199 H 2093-3) Triglycerides (test code = 2571-8) 159 mg/dL 0-149 H HDL Cholesterol (test code = 42 mg/dL >39 2085-9) VLDL Cholesterol Renuka (test code = 32 mg/dL 5-40 18483-0) LDL Cholesterol Calc (test code = 318 mg/dL 0-99 H 52542-7) Comment: (test code = 24594-1) [facility] Description: Lipid [id number] 02:47:00 Test Item Value Reference Range Interpretation Comments Cholesterol, Total (test code = 392 mg/dL 100-199 H 2093-3) Triglycerides (test code = 2571-8) 159 mg/dL 0-149 H HDL Cholesterol (test code = 42 mg/dL >39 2085-9) VLDL Cholesterol Renuka (test code = 32 mg/dL 5-40 85466-5) LDL Cholesterol Calc (test code = 318 mg/dL 0-99 H 94866-5) Comment: (test code = 91548-9) [facility] Description: Lipid [id number] 02:47:00 Test Item Value Reference Range Interpretation Comments Cholesterol, Total (test code = 392 mg/dL 100-199 H 2093-3) Triglycerides (test code = 2571-8) 159 mg/dL 0-149 H HDL Cholesterol (test code = 42 mg/dL >39 2085-9) VLDL Cholesterol Renuka (test code = 32 mg/dL 5-40 06059-1) LDL Cholesterol Calc (test code = 318 mg/dL 0-99 H 89430-8) Comment: (test code = 56573-0) [facility] Description: Lipid [id number] 02:47:00 Test Item Value Reference Range Interpretation Comments Cholesterol, Total (test code = 392 mg/dL 100-199 H 2093-3) Triglycerides (test code = 2571-8) 159 mg/dL 0-149 H HDL Cholesterol (test code = 42 mg/dL >39 2085-9) VLDL Cholesterol Renuka (test code = 32 mg/dL 5-40 57992-6) LDL Cholesterol Calc (test code = 318 mg/dL 0-99 H 05084-9) Comment: (test code = 38892-5) [facility] Description: Lipid [id number] 02:47:00 Test Item Value Reference Range Interpretation Comments Cholesterol, Total (test code = 392 mg/dL 100-199 H 2093-3) Triglycerides (test code = 2571-8) 159 mg/dL 0-149 H HDL Cholesterol (test code = 42 mg/dL >39 2085-9) VLDL Cholesterol Renuka (test code = 32 mg/dL 5-40 05703-8) LDL Cholesterol Calc (test code = 318 mg/dL 0-99 H 34345-0) Comment: (test code = 51403-8) [facility] Description: Lipid [id number] 02:47:00 Test Item Value Reference Range Interpretation Comments Cholesterol, Total (test code = 392 mg/dL 100-199 H 2093-3) Triglycerides (test code = 2571-8) 159 mg/dL 0-149 H HDL Cholesterol (test code = 42 mg/dL >39 2085-9) VLDL Cholesterol Renuka (test code = 32 mg/dL 5-40 85306-0) LDL Cholesterol Calc (test code = 318 mg/dL 0-99 H 41676-7) Comment: (test code = 35920-9) [facility] Description: Lipid [id number] 02:47:00 Test Item Value Reference Range Interpretation Comments Cholesterol, Total (test code = 392 mg/dL 100-199 H 2093-3) Triglycerides (test code = 2571-8) 159 mg/dL 0-149 H HDL Cholesterol (test code = 42 mg/dL >39 2085-9) VLDL Cholesterol Renuka (test code = 32 mg/dL 5-40 43683-6) LDL Cholesterol Calc (test code = 318 mg/dL 0-99 H 39949-8) Comment: (test code = 26920-0) [facility] Description: Lipid [id number] 02:47:00 Test Item Value Reference Range Interpretation Comments Cholesterol, Total (test code = 392 mg/dL 100-199 H 2093-3) Triglycerides (test code = 2571-8) 159 mg/dL 0-149 H HDL Cholesterol (test code = 42 mg/dL >39 2085-9) VLDL Cholesterol Renuka (test code = 32 mg/dL 5-40 26580-7) LDL Cholesterol Calc (test code = 318 mg/dL 0-99 H 60873-5) Comment: (test code = 42952-9) [facility] Description: Comp. Metabolic Panel (14)2019-04-05 02:37:00 Test Item Value Reference Range Interpretation Comments Glucose (test code = 219 mg/dL 65-99 H 2345-7) BUN (test code = 44 mg/dL 6-24 H 3094-0) Creatinine (test code 1.51 mg/dL 0.76-1.27 H = 2160-0) eGFR If NonAfricn Am 55 mL/min/1.73 >59 L (test code = 10688-3) eGFR If Africn Am 64 mL/min/1.73 >59 (test code = 12095-9) BUN/Creatinine Ratio 29 9-20 H (test code = 3097-3) Sodium (test code = 139 mmol/L 000-609 0458-2) Potassium (test code 4.4 mmol/L 3.5-5.2 = 2823-3) Chloride (test code = 99 mmol/L 96-106 2075-0) Carbon Dioxide, Total 28 mmol/L 20-29 (test code = 2027-) Calcium (test code = 8.9 mg/dL 8.7-10.2 39159-3) Protein, Total (test 6.1 g/dL 6.0-8.5 code [...] - 4.6

Pe rfo rmed by:
[facility] ()

Globulin, Total (test 2.8 g/dL 1.5-4.5 code = 36786-5) A/G Ratio (test code 1.2 1.2-2.2 = 1759-0) Bilirubin, Total 0.5 mg/dL 0.0-1.2 (test code = 1974-) Alkaline Phosphatase 100 IU/L 39-117 (test code = 6768-6) AST (SGOT) (test code 22 IU/L 0-40 = 1920-8) ALT (SGPT) (test code 27 IU/L 0-44 = 1742-6) [facility] Description: Comp. Metabolic Panel (14)2019-04-05 02:37:00 Test Item Value Reference Range Interpretation Comments Glucose (test code = 219 mg/dL 65-99 H 2345-7) BUN (test code = 44 mg/dL 6-24 H 3094-0) Creatinine (test code 1.51 mg/dL 0.76-1.27 H = 2160-0) eGFR If NonAfricn Am 55 mL/min/1.73 >59 L (test code = 67885-4) eGFR If Africn Am 64 mL/min/1.73 >59 (test code = 04898-0) BUN/Creatinine Ratio 29 9-20 H (test code = 3097-3) Sodium (test code = 139 mmol/L 252-335 8478-2) Potassium (test code 4.4 mmol/L 3.5-5.2 = 2823-3) Chloride (test code = 99 mmol/L 96-106 2075-0) Carbon Dioxide, Total 28 mmol/L 20-29 (test code = 8-9) Calcium (test code = 8.9 mg/dL 8.7-10.2 45630-4) Protein, Total (test 6.1 g/dL 6.0-8.5 code [...] - 4.6

Pe rfo rmed by:
[facility] ([place])

Globulin, Total (test 2.8 g/dL 1.5-4.5 code = 35254-7) A/G Ratio (test code 1.2 1.2-2.2 = 1759-0) Bilirubin, Total 0.5 mg/dL 0.0-1.2 (test code = 1975-2) Alkaline Phosphatase 100 IU/L 39-117 (test code = 6768-6) AST (SGOT) (test code 22 IU/L 0-40 = 1920-8) ALT (SGPT) (test code 27 IU/L 0-44 = 1742-6) [facility] Description: Comp. Metabolic Panel (14)2019-04-05 02:37:00 Test Item Value Reference Range Interpretation Comments Glucose (test code = 219 mg/dL 65-99 H 2345-7) BUN (test code = 44 mg/dL 6-24 H 3094-0) Creatinine (test code 1.51 mg/dL 0.76-1.27 H = 2160-0) eGFR If NonAfricn Am 55 mL/min/1.73 >59 L (test code = 43949-9) eGFR If Africn Am 64 mL/min/1.73 >59 (test code = 31853-3) BUN/Creatinine Ratio 29 9-20 H (test code = 3097-3) Sodium (test code = 139 mmol/L 418-376 9099-2) Potassium (test code 4.4 mmol/L 3.5-5.2 = 2823-3) Chloride (test code = 99 mmol/L 96-106 2075-0) Carbon Dioxide, Total 28 mmol/L 20-29 (test code = 2027-9) Calcium (test code = 8.9 mg/dL 8.7-10.2 04449-9) Protein, Total (test 6.1 g/dL 6.0-8.5 code [...] - 4.6

Pe rfo rmed by:
[facility] ()

Globulin, Total (test 2.8 g/dL 1.5-4.5 code = 81251-4) A/G Ratio (test code 1.2 1.2-2.2 = [...] 55 mL/min/1.73 >59 L (test code = 20929-8) eGFR If Africn Am 64 mL/min/1.73 >59 (test code = 18071-1) BUN/Creatinine Ratio 29 9-20 H (test code = 3097-3) Sodium (test code = 139 mmol/L 453-221 6047-2) Potassium (test code 4.4 mmol/L 3.5-5.2 = 2823-3) Chloride (test code = 99 mmol/L 96-106 2075-0) Carbon Dioxide, Total 28 mmol/L 20-29 (test code = 2027-9) Calcium (test code = 8.9 mg/dL 8.7-10.2 41127-1) Protein, Total (test 6.1 g/dL 6.0-8.5 code [...] Total (test 2.8 g/dL 1.5-4.5 code = 93785-3) A/G Ratio (test code 1.2 1.2-2.2 = 1759-0) Bilirubin, Total 0.5 mg/dL 0.0-1.2 (test code = 1974-2) Alkaline Phosphatase 100 IU/L 39-117 (test code = 6768-6) AST (SGOT) (test code 22 IU/L 0-40 = 1920-8) ALT (SGPT) (test code 27 IU/L 0-44 = 1742-6) [facility] Description: Comp. Metabolic Panel (14)2019-04-05 02:37:00 Test Item Value Reference Range Interpretation Comments Glucose (test code = 219 mg/dL 65-99 H 2345-7) BUN (test code = 44 mg/dL 6-24 H 3094-0) Creatinine (test code 1.51 mg/dL 0.76-1.27 H = 2160-0) eGFR If NonAfricn Am 55 mL/min/1.73 >59 L (test code = 45385-6) eGFR If Africn Am 64 mL/min/1.73 >59 (test code = 82321-1) BUN/Creatinine Ratio 29 9-20 H (test code = 3097-3) Sodium (test code = 139 mmol/L 884-564 5906-2) Potassium (test code 4.4 mmol/L 3.5-5.2 = 2823-3) Chloride (test code = 99 mmol/L 96-106 2075-0) Carbon Dioxide, Total 28 mmol/L 20-29 (test code = 2027-9) Calcium (test code = 8.9 mg/dL 8.7-10.2 87157-7) Protein, Total (test 6.1 g/dL 6.0-8.5 code [...] - 4.6

Pe rfo rmed by:
[facility] ([place])

Globulin, Total (test 2.8 g/dL 1.5-4.5 code = 87593-4) A/G Ratio (test code 1.2 1.2-2.2 = [...] 55 mL/min/1.73 >59 L (test code = 63309-4) eGFR If Africn Am 64 mL/min/1.73 >59 (test code = 94744-7) BUN/Creatinine Ratio 29 9-20 H (test code = 3097-3) Sodium (test code = 139 mmol/L 418-435 1069-2) Potassium (test code 4.4 mmol/L 3.5-5.2 = 2823-3) Chloride (test code = 99 mmol/L 96-106 2075-0) Carbon Dioxide, Total 28 mmol/L 20-29 (test code = 8-9) Calcium (test code = 8.9 mg/dL 8.7-10.2 45502-5) Protein, Total (test 6.1 g/dL 6.0-8.5 code [...] - 4.6

Pe rfo rmed by:
[facility] ([place])

Globulin, Total (test 2.8 g/dL 1.5-4.5 code = 84431-1) A/G Ratio (test code 1.2 1.2-2.2 = 1759-0) Bilirubin, Total 0.5 mg/dL 0.0-1.2 (test code = 1974-2) Alkaline Phosphatase 100 IU/L 39-117 (test code = 6768-6) AST (SGOT) (test code 22 IU/L 0-40 = 1920-8) ALT (SGPT) (test code 27 IU/L 0-44 = 1742-6) [facility] Description: Comp. Metabolic Panel (2019-04-05 02:37:00 Test Item Value Reference Range Interpretation Comments Glucose (test code = 219 mg/dL 65-99 H 2345-7) BUN (test code = 44 mg/dL 6-24 H 3094-0) Creatinine (test code 1.51 mg/dL 0.76-1.27 H = 2160-0) eGFR If NonAfricn Am 55 mL/min/1.73 >59 L (test code = 71991-4) eGFR If Africn Am 64 mL/min/1.73 >59 (test code = 48156-1) BUN/Creatinine Ratio 29 9-20 H (test code = 3097-3) Sodium (test code = 139 mmol/L 932-779 3521-2) Potassium (test code 4.4 mmol/L 3.5-5.2 = 2823-3) Chloride (test code = 99 mmol/L 96-106 2075-0) Carbon Dioxide, Total 28 mmol/L 20-29 (test code = 2027-9) Calcium (test code = 8.9 mg/dL 8.7-10.2 47218-6) Protein, Total (test 6.1 g/dL 6.0-8.5 code [...] - 4.6

Pe rfo rmed by:
[facility] ([place])

Globulin, Total (test 2.8 g/dL 1.5-4.5 code = 57317-1) A/G Ratio (test code 1.2 1.2-2.2 = 1759-0) Bilirubin, Total 0.5 mg/dL 0.0-1.2 (test code = 1975-2) Alkaline Phosphatase 100 IU/L 39-117 (test code = 6768-6) AST (SGOT) (test code 22 IU/L 0-40 = 1920-8) ALT (SGPT) (test code 27 IU/L 0-44 = 1742-6) [facility]: [facility] (2019-04-05 02:37:00 Test Item Value Reference Range Interpretation Comments Glucose (test code = 219 mg/dL 65-99 H 2345-7) BUN (test code = 44 mg/dL 6-24 H 3094-0) Creatinine (test code 1.51 mg/dL 0.76-1.27 H = 2160-0) eGFR If NonAfricn Am 55 mL/min/1.73 >59 L (test code = 32581-9) eGFR If Africn Am 64 mL/min/1.73 >59 (test code = 45497-2) BUN/Creatinine Ratio 29 9-20 H (test code = 3097-3) Sodium (test code = 139 mmol/L 056-795 7643-2) Potassium (test code 4.4 mmol/L 3.5-5.2 = 2823-3) Chloride (test code = 99 mmol/L 96-106 5-0) Carbon Dioxide, Total 28 mmol/L 20-29 (test code = 2027-9) Calcium (test code = 8.9 mg/dL 8.7-10.2 82561-7) Protein, Total (test 6.1 g/dL 6.0-8.5 code [...] Total (test 2.8 g/dL 1.5-4.5 code = 98764-9) A/G Ratio (test code 1.2 1.2-2.2 = 1759-0) Bilirubin, Total 0.5 mg/dL 0.0-1.2 (test code = 1974-2) Alkaline Phosphatase 100 IU/L 39-117 (test code = 6768-6) AST (SGOT) (test code 22 IU/L 0-40 = 1920-8) ALT (SGPT) (test code 27 IU/L 0-44 = 1742-6) [facility] Description: Comp. Metabolic Panel (14)2019-04-05 02:37:00 Test Item Value Reference Range Interpretation Comments Glucose (test code = 219 mg/dL 65-99 H 2345-7) BUN (test code = 44 mg/dL 6-24 H 3094-0) Creatinine (test code 1.51 mg/dL 0.76-1.27 H = 2160-0) eGFR If NonAfricn Am 55 mL/min/1.73 >59 L (test code = 03089-3) eGFR If Africn Am 64 mL/min/1.73 >59 (test code = 15409-7) BUN/Creatinine Ratio 29 9-20 H (test code = 3097-3) Sodium (test code = 139 mmol/L 216-827 3798-2) Potassium (test code 4.4 mmol/L 3.5-5.2 = 2823-3) Chloride (test code = 99 mmol/L 96-106 2075-0) Carbon Dioxide, Total 28 mmol/L 20-29 (test code = 2027-) Calcium (test code = 8.9 mg/dL 8.7-10.2 53525-9) Protein, Total (test 6.1 g/dL 6.0-8.5 code [...] - 4.6

Pe rfo rmed by:
[facility] [place] ([place])

Globulin, Total (test 2.8 g/dL 1.5-4.5 code = 73379-4) A/G Ratio (test code 1.2 1.2-2.2 = 1759-0) Bilirubin, Total 0.5 mg/dL 0.0-1.2 (test code = 1975-2) Alkaline Phosphatase 100 IU/L 39-117 (test code = 6768-6) AST (SGOT) (test code 22 IU/L 0-40 = 1920-8) ALT (SGPT) (test code 27 IU/L 0-44 = 1742-6) [facility] Description: Comp. Metabolic Panel (2019-04-05 02:37:00 Test Item Value Reference Range Interpretation Comments Glucose (test code = 219 mg/dL 65-99 H 2345-7) BUN (test code = 44 mg/dL 6-24 H 3094-0) Creatinine (test code 1.51 mg/dL 0.76-1.27 H = 2160-0) eGFR If NonAfricn Am 55 mL/min/1.73 >59 L (test code = 99191-2) eGFR If Africn Am 64 mL/min/1.73 >59 (test code = 84902-8) BUN/Creatinine Ratio 29 9-20 H (test code = 3097-3) Sodium (test code = 139 mmol/L 165-772 1955-2) Potassium (test code 4.4 mmol/L 3.5-5.2 = 2823-3) Chloride (test code = 99 mmol/L 96-106 2075-0) Carbon Dioxide, Total 28 mmol/L 20-29 (test code = 2027-9) Calcium (test code = 8.9 mg/dL 8.7-10.2 56829-7) Protein, Total (test 6.1 g/dL 6.0-8.5 code [...] - 4.6

Pe rfo rmed by:
[facility] [place] ([place])

Globulin, Total (test 2.8 g/dL 1.5-4.5 code = 82861-9) A/G Ratio (test code 1.2 1.2-2.2 = 1759-0) Bilirubin, Total 0.5 mg/dL 0.0-1.2 (test code = 1975-2) Alkaline Phosphatase 100 IU/L 39-117 (test code = 6768-6) AST (SGOT) (test code 22 IU/L 0-40 = 1920-8) ALT (SGPT) (test code 27 IU/L 0-44 = 1742-6) [facility] Description: Comp. Metabolic Panel (14)2019-04-05 02:37:00 Test Item Value Reference Range Interpretation Comments Glucose (test code = 219 mg/dL 65-99 H 2345-7) BUN (test code = 44 mg/dL 6-24 H 3094-0) Creatinine (test code 1.51 mg/dL 0.76-1.27 H = 2160-0) eGFR If NonAfricn Am 55 mL/min/1.73 >59 L (test code = 31774-9) eGFR If Africn Am 64 mL/min/1.73 >59 (test code = 27503-6) BUN/Creatinine Ratio 29 9-20 H (test code = 3097-3) Sodium (test code = 139 mmol/L 578-019 9774-2) Potassium (test code 4.4 mmol/L 3.5-5.2 = 2823-3) Chloride (test code = 99 mmol/L 96-106 2075-0) Carbon Dioxide, Total 28 mmol/L 20-29 (test code = 2027-9) Calcium (test code = 8.9 mg/dL 8.7-10.2 62443-3) Protein, Total (test 6.1 g/dL 6.0-8.5 code [...] - 4.6

Pe rfo rmed by:
[facility] [place] ([place])

Globulin, Total (test 2.8 g/dL 1.5-4.5 code = 52570-1) A/G Ratio (test code 1.2 1.2-2.2 = 1759-0) Bilirubin, Total 0.5 mg/dL 0.0-1.2 (test code = 1975-2) Alkaline Phosphatase 100 IU/L 39-117 (test code = 6768-6) AST (SGOT) (test code 22 IU/L 0-40 = 1920-8) ALT (SGPT) (test code 27 IU/L 0-44 = 1742-6) [facility] Description: Comp. Metabolic Panel (2019-04-05 02:37:00 Test Item Value Reference Range Interpretation Comments Glucose (test code = 219 mg/dL 65-99 H 2345-7) BUN (test code = 44 mg/dL 6-24 H 3094-0) Creatinine (test code 1.51 mg/dL 0.76-1.27 H = 2160-0) eGFR If NonAfricn Am 55 mL/min/1.73 >59 L (test code = 90798-4) eGFR If Africn Am 64 mL/min/1.73 >59 (test code = 51383-2) BUN/Creatinine Ratio 29 9-20 H (test code = 3097-3) Sodium (test code = 139 mmol/L 740-592 9780-2) Potassium (test code 4.4 mmol/L 3.5-5.2 = 2823-3) Chloride (test code = 99 mmol/L 96-106 2075-0) Carbon Dioxide, Total 28 mmol/L 20-29 (test code = 2027-9) Calcium (test code = 8.9 mg/dL 8.7-10.2 37047-9) Protein, Total (test 6.1 g/dL 6.0-8.5 code [...] Total (test 2.8 g/dL 1.5-4.5 code = 57919-6) A/G Ratio (test code 1.2 1.2-2.2 = 1759-0) Bilirubin, Total 0.5 mg/dL 0.0-1.2 (test code = 1975-2) Alkaline Phosphatase 100 IU/L 39-117 (test code = 6768-6) AST (SGOT) (test code 22 IU/L 0-40 = 1920-8) ALT (SGPT) (test code 27 IU/L 0-44 = 1742-6) [facility] Description: Comp. Metabolic Panel (14)2019-04-05 02:37:00 Test Item Value Reference Range Interpretation Comments Glucose (test code = 219 mg/dL 65-99 H 2345-7) BUN (test code = 44 mg/dL 6-24 H 3094-0) Creatinine (test code 1.51 mg/dL 0.76-1.27 H = 2160-0) eGFR If NonAfricn Am 55 mL/min/1.73 >59 L (test code = 08155-1) eGFR If Africn Am 64 mL/min/1.73 >59 (test code = 19776-4) BUN/Creatinine Ratio 29 9-20 H (test code = 3097-3) Sodium (test code = 139 mmol/L 134-206 9665-2) Potassium (test code 4.4 mmol/L 3.5-5.2 = 2823-3) Chloride (test code = 99 mmol/L 96-106 5-0) Carbon Dioxide, Total 28 mmol/L 20-29 (test code = 2027-9) Calcium (test code = 8.9 mg/dL 8.7-10.2 27658-4) Protein, Total (test 6.1 g/dL 6.0-8.5 code [...] Total (test 2.8 g/dL 1.5-4.5 code = 94918-4) A/G Ratio (test code 1.2 1.2-2.2 = 1759-0) Bilirubin, Total 0.5 mg/dL 0.0-1.2 (test code = 1975-2) Alkaline Phosphatase 100 IU/L 39-117 (test code = 6768-6) AST (SGOT) (test code 22 IU/L 0-40 = 1920-8) ALT (SGPT) (test code 27 IU/L 0-44 = 1742-6) [facility] Description: Comp. Metabolic Panel (14)2019-04-05 02:37:00 Test Item Value Reference Range Interpretation Comments Glucose (test code = 219 mg/dL 65-99 H 2345-7) BUN (test code = 44 mg/dL 6-24 H 3094-0) Creatinine (test code 1.51 mg/dL 0.76-1.27 H = 2160-0) eGFR If NonAfricn Am 55 mL/min/1.73 >59 L (test code = 94704-4) eGFR If Africn Am 64 mL/min/1.73 >59 (test code = 90101-3) BUN/Creatinine Ratio 29 9-20 H (test code = 3097-3) Sodium (test code = 139 mmol/L 442-633 3370-2) Potassium (test code 4.4 mmol/L 3.5-5.2 = 2823-3) Chloride (test code = 99 mmol/L 96-106 2075-0) Carbon Dioxide, Total 28 mmol/L 20-29 (test code = 2027-) Calcium (test code = 8.9 mg/dL 8.7-10.2 13738-9) Protein, Total (test 6.1 g/dL 6.0-8.5 code [...] Total (test 2.8 g/dL 1.5-4.5 code = 39364-7) A/G Ratio (test code 1.2 1.2-2.2 = 1759-0) Bilirubin, Total 0.5 mg/dL 0.0-1.2 (test code = 1975-2) Alkaline Phosphatase 100 IU/L 39-117 (test code = 6768-6) AST (SGOT) (test code 22 IU/L 0-40 = 1920-8) ALT (SGPT) (test code 27 IU/L 0-44 = 1742-6) [facility] Description: Comp. Metabolic Panel (14)2019-04-05 02:37:00 Test Item Value Reference Range Interpretation Comments Glucose (test code = 219 mg/dL 65-99 H 2345-7) BUN (test code = 44 mg/dL 6-24 H 3094-0) Creatinine (test code 1.51 mg/dL 0.76-1.27 H = 2160-0) eGFR If NonAfricn Am 55 mL/min/1.73 >59 L (test code = 22311-3) eGFR If Africn Am 64 mL/min/1.73 >59 (test code = 48532-4) BUN/Creatinine Ratio 29 9-20 H (test code = 3097-3) Sodium (test code = 139 mmol/L 463-559 8410-2) Potassium (test code 4.4 mmol/L 3.5-5.2 = 2823-3) Chloride (test code = 99 mmol/L 96-106 2075-0) Carbon Dioxide, Total 28 mmol/L 20-29 (test code = 2027-9) Calcium (test code = 8.9 mg/dL 8.7-10.2 16457-9) Protein, Total (test 6.1 g/dL 6.0-8.5 code [...] Total (test 2.8 g/dL 1.5-4.5 code = 67460-0) A/G Ratio (test code 1.2 1.2-2.2 = 1759-0) Bilirubin, Total 0.5 mg/dL 0.0-1.2 (test code = 1974-2) Alkaline Phosphatase 100 IU/L 39-117 (test code = 6768-6) AST (SGOT) (test code 22 IU/L 0-40 = 1920-8) ALT (SGPT) (test code 27 IU/L 0-44 = 1742-6) [facility] Description: Comp. Metabolic Panel (142019-04-05 02:37:00 Test Item Value Reference Range Interpretation Comments Glucose (test code = 219 mg/dL 65-99 H 2345-7) BUN (test code = 44 mg/dL 6-24 H 3094-0) Creatinine (test code 1.51 mg/dL 0.76-1.27 H = 2160-0) eGFR If NonAfricn Am 55 mL/min/1.73 >59 L (test code = 69497-9) eGFR If Africn Am 64 mL/min/1.73 >59 (test code = 30289-6) BUN/Creatinine Ratio 29 9-20 H (test code = 3097-3) Sodium (test code = 139 mmol/L 741-642 7667-2) Potassium (test code 4.4 mmol/L 3.5-5.2 = 2823-3) Chloride (test code = 99 mmol/L 96-106 5-0) Carbon Dioxide, Total 28 mmol/L 20-29 (test code = 2027-9) Calcium (test code = 8.9 mg/dL 8.7-10.2 67622-8) Protein, Total (test 6.1 g/dL 6.0-8.5 code [...] - 4.6

Pe rfo rmed by:
[facility] ()

Globulin, Total (test 2.8 g/dL 1.5-4.5 code = 62533-2) A/G Ratio (test code 1.2 1.2-2.2 = 1759-0) Bilirubin, Total 0.5 mg/dL 0.0-1.2 (test code = 1975-2) Alkaline Phosphatase 100 IU/L 39-117 (test code = 6768-6) AST (SGOT) (test code 22 IU/L 0-40 = 1920-8) ALT (SGPT) (test code 27 IU/L 0-44 = 1742-6) [facility] Description: Comp. Metabolic Panel (14)2019-04-05 02:37:00 Test Item Value Reference Range Interpretation Comments Glucose (test code = 219 mg/dL 65-99 H 2345-7) BUN (test code = 44 mg/dL 6-24 H 3094-0) Creatinine (test code 1.51 mg/dL 0.76-1.27 H = 2160-0) eGFR If NonAfricn Am 55 mL/min/1.73 >59 L (test code = 94354-5) eGFR If Africn Am 64 mL/min/1.73 >59 (test code = 46163-0) BUN/Creatinine Ratio 29 9-20 H (test code = 3097-3) Sodium (test code = 139 mmol/L 947-651 5492-2) Potassium (test code 4.4 mmol/L 3.5-5.2 = 2823-3) Chloride (test code = 99 mmol/L 96-106 2075-0) Carbon Dioxide, Total 28 mmol/L 20-29 (test code = 2027-9) Calcium (test code = 8.9 mg/dL 8.7-10.2 00679-2) Protein, Total (test 6.1 g/dL 6.0-8.5 code [...] - 4.6

Pe rfo rmed by:
[facility] [place] ([place])

Globulin, Total (test 2.8 g/dL 1.5-4.5 code = 80539-0) A/G Ratio (test code 1.2 1.2-2.2 = 1759-0) Bilirubin, Total 0.5 mg/dL 0.0-1.2 (test code = 1975-2) Alkaline Phosphatase 100 IU/L 39-117 (test code = 6768-6) AST (SGOT) (test code 22 IU/L 0-40 = 1920-8) ALT (SGPT) (test code 27 IU/L 0-44 = 1742-6) [facility] Description: Comp. Metabolic Panel (142019-04-05 02:37:00 Test Item Value Reference Range Interpretation Comments Glucose (test code = 219 mg/dL 65-99 H 2345-7) BUN (test code = 44 mg/dL 6-24 H 3094-0) Creatinine (test code 1.51 mg/dL 0.76-1.27 H = 2160-0) eGFR If NonAfricn Am 55 mL/min/1.73 >59 L (test code = 51190-8) eGFR If Africn Am 64 mL/min/1.73 >59 (test code = 83493-3) BUN/Creatinine Ratio 29 9-20 H (test code = 3097-3) Sodium (test code = 139 mmol/L 378-252 5630-2) Potassium (test code 4.4 mmol/L 3.5-5.2 = 2823-3) Chloride (test code = 99 mmol/L 96-106 2074-0) Carbon Dioxide, Total 28 mmol/L 20-29 (test code = 2027-) Calcium (test code = 8.9 mg/dL 8.7-10.2 90811-9) Protein, Total (test 6.1 g/dL 6.0-8.5 code [...] Total (test 2.8 g/dL 1.5-4.5 code = 26615-7) A/G Ratio (test code 1.2 1.2-2.2 = 1759-0) Bilirubin, Total 0.5 mg/dL 0.0-1.2 (test code = 1974-2) Alkaline Phosphatase 100 IU/L 39-117 (test code = 6768-6) AST (SGOT) (test code 22 IU/L 0-40 = 1920-8) ALT (SGPT) (test code 27 IU/L 0-44 = 1742-6) [facility] Description: Comp. Metabolic Panel (14)2019-04-05 02:37:00 Test Item Value Reference Range Interpretation Comments Glucose (test code = 219 mg/dL 65-99 H 2345-7) BUN (test code = 44 mg/dL 6-24 H 3094-0) Creatinine (test code 1.51 mg/dL 0.76-1.27 H = 2160-0) eGFR If NonAfricn Am 55 mL/min/1.73 >59 L (test code = 12753-0) eGFR If Africn Am 64 mL/min/1.73 >59 (test code = 56690-3) BUN/Creatinine Ratio 29 9-20 H (test code = 3097-3) Sodium (test code = 139 mmol/L 322-002 3607-2) Potassium (test code 4.4 mmol/L 3.5-5.2 = 2823-3) Chloride (test code = 99 mmol/L 96-106 2075-0) Carbon Dioxide, Total 28 mmol/L 20-29 (test code = 2027-9) Calcium (test code = 8.9 mg/dL 8.7-10.2 52111-5) Protein, Total (test 6.1 g/dL 6.0-8.5 code [...] Total (test 2.8 g/dL 1.5-4.5 code = 72844-7) A/G Ratio (test code 1.2 1.2-2.2 = 1759-0) Bilirubin, Total 0.5 mg/dL 0.0-1.2 (test code = 1975-2) Alkaline Phosphatase 100 IU/L 39-117 (test code = 6768-6) AST (SGOT) (test code 22 IU/L 0-40 = 1920-8) ALT (SGPT) (test code 27 IU/L 0-44 = 1742-6) [facility] Description: Comp. Metabolic Panel (14)2019-04-05 02:37:00 Test Item Value Reference Range Interpretation Comments Glucose (test code = 219 mg/dL 65-99 H 2345-7) BUN (test code = 44 mg/dL 6-24 H 3094-0) Creatinine (test code 1.51 mg/dL 0.76-1.27 H = 2160-0) eGFR If NonAfricn Am 55 mL/min/1.73 >59 L (test code = 17633-2) eGFR If Africn Am 64 mL/min/1.73 >59 (test code = 52175-2) BUN/Creatinine Ratio 29 9-20 H (test code = 3097-3) Sodium (test code = 139 mmol/L 259-382 5955-2) Potassium (test code 4.4 mmol/L 3.5-5.2 = 2823-3) Chloride (test code = 99 mmol/L 96-106 2074-0) Carbon Dioxide, Total 28 mmol/L 20-29 (test code = 2027-) Calcium (test code = 8.9 mg/dL 8.7-10.2 93567-6) Protein, Total (test 6.1 g/dL 6.0-8.5 code [...] - 4.6

Pe rfo rmed by:
[facility] ()

Globulin, Total (test 2.8 g/dL 1.5-4.5 code = 60443-3) A/G Ratio (test code 1.2 1.2-2.2 = 1759-0) Bilirubin, Total 0.5 mg/dL 0.0-1.2 (test code = 1974-) Alkaline Phosphatase 100 IU/L 39-117 (test code = 6768-6) AST (SGOT) (test code 22 IU/L 0-40 = 1920-8) ALT (SGPT) (test code 27 IU/L 0-44 = 1742-6) [facility] Description: Comp. Metabolic Panel (14)2019-04-05 02:37:00 Test Item Value Reference Range Interpretation Comments Glucose (test code = 219 mg/dL 65-99 H 2345-7) BUN (test code = 44 mg/dL 6-24 H 3094-0) Creatinine (test code 1.51 mg/dL 0.76-1.27 H = 2160-0) eGFR If NonAfricn Am 55 mL/min/1.73 >59 L (test code = 20103-7) eGFR If Africn Am 64 mL/min/1.73 >59 (test code = 19749-8) BUN/Creatinine Ratio 29 9-20 H (test code = 3097-3) Sodium (test code = 139 mmol/L 352-847 9171-2) Potassium (test code 4.4 mmol/L 3.5-5.2 = 2823-3) Chloride (test code = 99 mmol/L 96-106 2075-0) Carbon Dioxide, Total 28 mmol/L 20-29 (test code = 8-9) Calcium (test code = 8.9 mg/dL 8.7-10.2 98594-9) Protein, Total (test 6.1 g/dL 6.0-8.5 code [...] - 4.6

Pe rfo rmed by:
[facility] ([place])

Globulin, Total (test 2.8 g/dL 1.5-4.5 code = 08857-1) A/G Ratio (test code 1.2 1.2-2.2 = 1759-0) Bilirubin, Total 0.5 mg/dL 0.0-1.2 (test code = 1975-2) Alkaline Phosphatase 100 IU/L 39-117 (test code = 6768-6) AST (SGOT) (test code 22 IU/L 0-40 = 1920-8) ALT (SGPT) (test code 27 IU/L 0-44 = 1742-6) [facility] Description: Comp. Metabolic Panel (14)2019-04-05 02:37:00 Test Item Value Reference Range Interpretation Comments Glucose (test code = 219 mg/dL 65-99 H 2345-7) BUN (test code = 44 mg/dL 6-24 H 3094-0) Creatinine (test code 1.51 mg/dL 0.76-1.27 H = 2160-0) eGFR If NonAfricn Am 55 mL/min/1.73 >59 L (test code = 58299-4) eGFR If Africn Am 64 mL/min/1.73 >59 (test code = 27837-7) BUN/Creatinine Ratio 29 9-20 H (test code = 3097-3) Sodium (test code = 139 mmol/L 922-605 3772-2) Potassium (test code 4.4 mmol/L 3.5-5.2 = 2823-3) Chloride (test code = 99 mmol/L 96-106 2075-0) Carbon Dioxide, Total 28 mmol/L 20-29 (test code = 2027-11) Calcium (test code = 8.9 mg/dL 8.7-10.2 64127-0) Protein, Total (test 6.1 g/dL 6.0-8.5 code [...] - 4.6

Pe rfo rmed by:
[facility] ()

Globulin, Total (test 2.8 g/dL 1.5-4.5 code = 64901-1) A/G Ratio (test code 1.2 1.2-2.2 = 1758-0) Bilirubin, Total 0.5 mg/dL 0.0-1.2 (test code = 1974-) Alkaline Phosphatase 100 IU/L 39-117 (test code = 6768-6) AST (SGOT) (test code 22 IU/L 0-40 = 1920-8) ALT (SGPT) (test code 27 IU/L 0-44 = 1742-6) [facility] Description: Comp. Metabolic Panel (14)2019-04-05 02:37:00 Test Item Value Reference Range Interpretation Comments Glucose (test code = 219 mg/dL 65-99 H 2345-7) BUN (test code = 44 mg/dL 6-24 H 3094-0) Creatinine (test code 1.51 mg/dL 0.76-1.27 H = 2160-0) eGFR If NonAfricn Am 55 mL/min/1.73 >59 L (test code = 74584-3) eGFR If Africn Am 64 mL/min/1.73 >59 (test code = 81414-1) BUN/Creatinine Ratio 29 9-20 H (test code = 3097-3) Sodium (test code = 139 mmol/L 223-403 0635-2) Potassium (test code 4.4 mmol/L 3.5-5.2 = 2823-3) Chloride (test code = 99 mmol/L 96-106 2075-0) Carbon Dioxide, Total 28 mmol/L 20-29 (test code = 8-9) Calcium (test code = 8.9 mg/dL 8.7-10.2 26714-8) Protein, Total (test 6.1 g/dL 6.0-8.5 code [...] Total (test 2.8 g/dL 1.5-4.5 code = 71546-4) A/G Ratio (test code 1.2 1.2-2.2 = 1759-0) Bilirubin, Total 0.5 mg/dL 0.0-1.2 (test code = 1974-2) Alkaline Phosphatase 100 IU/L 39-117 (test code = 6768-6) AST (SGOT) (test code 22 IU/L 0-40 = 1920-8) ALT (SGPT) (test code 27 IU/L 0-44 = 1742-6) [facility] Description: Comp. Metabolic Panel (14)2019-04-05 02:37:00 Test Item Value Reference Range Interpretation Comments Glucose (test code = 219 mg/dL 65-99 H 2345-7) BUN (test code = 44 mg/dL 6-24 H 3094-0) Creatinine (test code 1.51 mg/dL 0.76-1.27 H = 2160-0) eGFR If NonAfricn Am 55 mL/min/1.73 >59 L (test code = 10380-8) eGFR If Africn Am 64 mL/min/1.73 >59 (test code = 44938-0) BUN/Creatinine Ratio 29 9-20 H (test code = 3097-3) Sodium (test code = 139 mmol/L 396-317 2410-2) Potassium (test code 4.4 mmol/L 3.5-5.2 = 2823-3) Chloride (test code = 99 mmol/L 96-106 2075-0) Carbon Dioxide, Total 28 mmol/L 20-29 (test code = 2027-9) Calcium (test code = 8.9 mg/dL 8.7-10.2 40296-3) Protein, Total (test 6.1 g/dL 6.0-8.5 code [...] - 4.6

Pe rfo rmed by:
[facility] ()

Globulin, Total (test 2.8 g/dL 1.5-4.5 code = 84514-3) A/G Ratio (test code 1.2 1.2-2.2 = 1759-0) Bilirubin, Total 0.5 mg/dL 0.0-1.2 (test code = 1974-2) Alkaline Phosphatase 100 IU/L 39-117 (test code = 6768-6) AST (SGOT) (test code 22 IU/L 0-40 = 1920-8) ALT (SGPT) (test code 27 IU/L 0-44 = 1742-6) [facility] (14)2019-04-05 02:37:00 Test Item Value Reference Range Interpretation Comments Glucose (test code = 219 mg/dL 65-99 H 2345-7) BUN (test code = 44 mg/dL 6-24 H 3094-0) Creatinine (test code 1.51 mg/dL 0.76-1.27 H = 2160-0) eGFR If NonAfricn Am 55 mL/min/1.73 >59 L (test code = 94267-1) eGFR If Africn Am 64 mL/min/1.73 >59 (test code = 35716-9) BUN/Creatinine Ratio 29 9-20 H (test code = 3097-3) Sodium (test code = 139 mmol/L 837-651 1311-2) Potassium (test code 4.4 mmol/L 3.5-5.2 = 2823-3) Chloride (test code = 99 mmol/L 96-106 2075-0) Carbon Dioxide, Total 28 mmol/L 20-29 (test code = 2027-9) Calcium (test code = 8.9 mg/dL 8.7-10.2 32231-1) Protein, Total (test 6.1 g/dL 6.0-8.5 code [...] Total (test 2.8 g/dL 1.5-4.5 code = 99892-3) A/G Ratio (test code 1.2 1.2-2.2 = 1759-0) Bilirubin, Total 0.5 mg/dL 0.0-1.2 (test code = 1974-2) Alkaline Phosphatase 100 IU/L 39-117 (test code = 6768-6) AST (SGOT) (test code 22 IU/L 0-40 = 1920-8) ALT (SGPT) (test code 27 IU/L 0-44 = 1742-6) [facility] Description: Comp. Metabolic Panel (14)2019-04-05 02:37:00 Test Item Value Reference Range Interpretation Comments Glucose (test code = 219 mg/dL 65-99 H 2345-7) BUN (test code = 44 mg/dL 6-24 H 3094-0) Creatinine (test code 1.51 mg/dL 0.76-1.27 H = 2160-0) eGFR If NonAfricn Am 55 mL/min/1.73 >59 L (test code = 82121-0) eGFR If Africn Am 64 mL/min/1.73 >59 (test code = 56211-6) BUN/Creatinine Ratio 29 9-20 H (test code = 3097-3) Sodium (test code = 139 mmol/L 986-519 5632-2) Potassium (test code 4.4 mmol/L 3.5-5.2 = 2823-3) Chloride (test code = 99 mmol/L 96-106 2075-0) Carbon Dioxide, Total 28 mmol/L 20-29 (test code = 2027-9) Calcium (test code = 8.9 mg/dL 8.7-10.2 54428-7) Protein, Total (test 6.1 g/dL 6.0-8.5 code [...] - 4.6

Pe rfo rmed by:
[facility] ([place])

Globulin, Total (test 2.8 g/dL 1.5-4.5 code = 24733-5) A/G Ratio (test code 1.2 1.2-2.2 = [...] 55 mL/min/1.73 >59 L (test code = 63796-6) eGFR If Africn Am 64 mL/min/1.73 >59 (test code = 08467-6) BUN/Creatinine Ratio 29 9-20 H (test code = 3097-3) Sodium (test code = 139 mmol/L 077-528 0143-2) Potassium (test code 4.4 mmol/L 3.5-5.2 = 2823-3) Chloride (test code = 99 mmol/L 96-106 2075-0) Carbon Dioxide, Total 28 mmol/L 20-29 (test code = 8-9) Calcium (test code = 8.9 mg/dL 8.7-10.2 38830-7) Protein, Total (test 6.1 g/dL 6.0-8.5 code [...] - 4.6

Pe rfo rmed by:
[facility] ([place])

Globulin, Total (test 2.8 g/dL 1.5-4.5 code = 09613-6) A/G Ratio (test code 1.2 1.2-2.2 = 1759-0) Bilirubin, Total 0.5 mg/dL 0.0-1.2 (test code = 1975-2) Alkaline Phosphatase 100 IU/L 39-117 (test code = 6768-6) AST (SGOT) (test code 22 IU/L 0-40 = 1920-8) ALT (SGPT) (test code 27 IU/L 0-44 = 1742-6) [facility] [id number] 11:58:00 Test Item Value Reference Range Interpretation Comments STREP A ANTIGEN (BEAKER) (test code Negative = 556) POCT-GLUCOSE [id number] 22:44:00 Test Item Value Reference Range Interpretation Comments POC-GLUCOSE METER 431 mg/dL 70-110 TESTED AT [address] ([facility]) (test code [address] [facility] [place] = 1538) [address] POCT-GLUCOSE [id number] 22:44:00 Test Item Value Reference Range Interpretation Comments POC-GLUCOSE METER 455 mg/dL 70-110 TESTED AT [address] ([facility]) (test code [address] [facility] [place] = 1538) [address] URINALYSIS W/ REFLEX URINE [id number] 20:30:00 Test Item Value Reference Range Interpretation [...] SOURCE(BEAKER) (test code = 2795) COMPREHENSIVE METABOLIC [id number] 20:27:00 Test Item Value Reference Range Interpretation [...] S NOT APPLICABLE FOR DIALYSIS PATIEN TS. [id number] 20:27:00 Test Item Value Reference Range Interpretation Comments LIPASE (BEAKER) (test code = 749) 37 U/L 6-51 [id number] 20:23:00 Test Item Value Reference Range Interpretation [...] Information (Auto Output)CBC W/PLT COUNT & AUTO [id number] 20:11:00 Test Item Value Reference Range Interpretation [...] (BEAKER) (test code = 2801) BASIC METABOLIC [id number] 06:52:00 Test Item Value Reference Range Interpretation [...] NOT APPLICABLE FOR DIALYSIS PATIEN TS. POCT-GLUCOSE [id number] 05:58:00 Test Item Value Reference Range Interpretation Comments POC-GLUCOSE METER 222 mg/dL 70-110 H TESTED AT [address] ([facility]) (test code [facility] [place] = 1538) [id number] POCT-GLUCOSE [id number] 20:37:00 Test Item Value Reference Range Interpretation Comments POC-GLUCOSE METER 157 mg/dL 70-110 H TESTED AT [address] ([facility]) (test code [facility] [place] = 1538) [address] POCT-GLUCOSE [id number] 18:13:00 Test Item Value Reference Range Interpretation Comments POC-GLUCOSE METER 176 mg/dL 70-110 H TESTED AT [address] ([facility]) (test code [facility] [address] [facility] [place] = 1538) [address] POCT-GLUCOSE [id number] 12:16:00 Test Item Value Reference Range Interpretation Comments POC-GLUCOSE METER 161 mg/dL 70-110 H TESTED AT [address] ([facility]) (test code [facility] [place] = 1538) [address] BASIC METABOLIC [id number] 07:11:00 Test Item Value Reference Range Interpretation [...] PATIEN TS. CBC W/PLT COUNT & AUTO [id number] 06:27:00 Test Item Value Reference Range Interpretation [...] PERCENT (BEAKER) (test code = 2801) POCT-GLUCOSE [id number] 06:22:00 Test Item Value Reference Range Interpretation Comments POC-GLUCOSE METER 172 mg/dL 70-110 H TESTED AT [facility] (BEAKER) (test code [address] [facility] [place] = 1538) [id number] POCT-GLUCOSE [id number] 20:27:00 Test Item Value Reference Range Interpretation Comments POC-GLUCOSE METER 209 mg/dL 70-110 H TESTED AT [address] (BEAKER) (test code [facility] [facility] [place] = 1538) [id number] POCT-GLUCOSE [id number] 18:12:00 Test Item Value Reference Range Interpretation Comments POC-GLUCOSE METER 192 mg/dL 70-110 H TESTED AT [address] (BEAKER) (test code [facility] [address] [facility] [place] = 1538) [id number] POCT-GLUCOSE [id number] 11:20:00 Test Item Value Reference Range Interpretation Comments POC-GLUCOSE METER 192 mg/dL 70-110 H TESTED AT [address] (BEAKER) (test code [facility] [facility] [place] = 1538) [id number] BASIC METABOLIC [id number] 07:02:00 Test Item Value Reference Range Interpretation [...] PATIEN TS. CBC W/PLT COUNT & AUTO [id number] 06:41:00 Test Item Value Reference Range Interpretation [...] PERCENT (BEAKER) (test code = 2801) POCT-GLUCOSE [id number] 06:13:00 Test Item Value Reference Range Interpretation Comments POC-GLUCOSE METER 134 mg/dL 70-110 H TESTED AT [address] ([facility]) (test code [facility] [place] = 1538) [address] POCT-GLUCOSE [id number] 21:38:00 Test Item Value Reference Range Interpretation Comments POC-GLUCOSE METER 114 mg/dL 70-110 H TESTED AT [address] ([facility]) (test code [facility] [place] = 1538) [address] POCT-GLUCOSE [id number] 16:58:00 Test Item Value Reference Range Interpretation Comments POC-GLUCOSE METER 294 mg/dL 70-110 H TESTED AT [address] ([facility]) (test code [facility] [place] = 1538) [address] POCT-GLUCOSE [id number] 12:03:00 Test Item Value Reference Range Interpretation Comments POC-GLUCOSE METER 157 mg/dL 70-110 H TESTED AT [address] ([facility]) (test code [facility] [place] = 1538) [address] POCT-GLUCOSE [id number] 06:50:00 Test Item Value Reference Range Interpretation Comments POC-GLUCOSE METER 167 mg/dL 70-110 H TESTED AT [address] ([facility]) (test code [facility] [place] = 1538) [address] BASIC METABOLIC [id number] 05:07:00 Test Item Value Reference Range Interpretation [...] S NOT APPLICABLE FOR DIALYSIS PATIEN TS. [id number] 05:01:00 Test Item Value Reference Range Interpretation Comments MAGNESIUM (BEAKER) (test code = 2.0 mg/dL 1.5-3.0 627) CBC W/PLT COUNT & AUTO [id number] 04:43:00 Test Item Value Reference Range Interpretation [...] PERCENT (BEAKER) (test code = 2801) POCT-GLUCOSE [id number] 20:37:00 Test Item Value Reference Range Interpretation Comments POC-GLUCOSE METER 212 mg/dL 70-110 H TESTED AT [address] ([facility]) (test code [facility] [place] = 1538) [address] POCT-GLUCOSE [id number] 17:03:00 Test Item Value Reference Range Interpretation Comments POC-GLUCOSE METER 176 mg/dL 70-110 H TESTED AT [address] ([facility]) (test code [facility] [place] = 1538) 0[address] POCT-GLUCOSE [id number] 12:05:00 Test Item Value Reference Range Interpretation Comments POC-GLUCOSE METER 169 mg/dL 70-110 H TESTED AT [address] ([facility]) (test code [facility] [place] = 1538) [address] POCT-GLUCOSE [id number] 09:25:00 Test Item Value Reference Range Interpretation Comments POC-GLUCOSE METER 148 mg/dL 70-110 H TESTED AT [address] ([facility]) (test code [facility] [place] = 1538) [address] BASIC METABOLIC [id number] 06:32:00 Test Item Value Reference Range Interpretation [...] NOT APPLICABLE FOR DIALYSIS PATIEN TS. POCT-GLUCOSE [id number] 06:12:00 Test Item Value Reference Range Interpretation Comments POC-GLUCOSE METER 165 mg/dL 70-110 H TESTED AT [facility] ([facility]) (test code [address] [facility] [place] = 1538) [address] CBC W/PLT COUNT & AUTO [id number] 06:00:00 Test Item Value Reference Range Interpretation [...] PERCENT (BEAKER) (test code = 2801) POCT-GLUCOSE [id number] 21:02:00 Test Item Value Reference Range Interpretation Comments POC-GLUCOSE METER 185 mg/dL 70-110 H TESTED AT [address] ([facility]) (test code [facility] [place] = 1538) 706[address] POCT-GLUCOSE [id number] 16:21:00 Test Item Value Reference Range Interpretation Comments POC-GLUCOSE METER 141 mg/dL 70-110 H TESTED AT [address] (BEAKER) (test code [address] [facility] [place] = 1538) [address] POCT-GLUCOSE [id number] 12:26:00 Test Item Value Reference Range Interpretation Comments POC-GLUCOSE METER 145 mg/dL 70-110 H TESTED AT [facility] [address] (BEAKER) (test code [address] [facility] [place] = 1538) [address] POCT-GLUCOSE [id number] 06:43:00 Test Item Value Reference Range Interpretation Comments POC-GLUCOSE METER 170 mg/dL 70-110 H TESTED AT [facility] [address] (BEAKER) (test code [address] [facility] [place] = 1538) [address] BASIC METABOLIC [id number] 06:39:00 Test Item Value Reference Range Interpretation [...] S NOT APPLICABLE FOR DIALYSIS PATIEN TS. [id number] 06:33:00 Test Item Value Reference Range Interpretation Comments MAGNESIUM (BEAKER) (test code = 1.9 mg/dL 1.5-3.0 627) CBC W/PLT COUNT & AUTO [id number] 06:10:00 Test Item Value Reference Range Interpretation [...] PERCENT (BEAKER) (test code = 2801) POCT-GLUCOSE [id number] 21:08:00 Test Item Value Reference Range Interpretation Comments POC-GLUCOSE METER 218 mg/dL 70-110 H TESTED AT [address] (BEAKER) (test code [facility] [place] = 1538) 368[address] POCT-GLUCOSE [id number] 16:36:00 Test Item Value Reference Range Interpretation Comments POC-GLUCOSE METER 142 mg/dL 70-110 H TESTED AT [facility] [address] ([facility]) (test code [address] [facility] [place] = 1538) 750[address] POCT-GLUCOSE [id number] 11:26:00 Test Item Value Reference Range Interpretation Comments POC-GLUCOSE METER 191 mg/dL 70-110 H TESTED AT [facility] [address] ([facility]) (test code [address] [facility] [place] = 1538) [address] VANCOMYCIN LEVEL, [id number] 09:08:00 Test Item Value Reference Range Interpretation Comments VANCOMYCIN TROUGH (BEAKER) (test 17.9 ug/mL 10.0-20.0 code = 522) VANCOMYCIN DOSING BY RX - follow upTROUGH PRIOR TO DOSE ON 01/20/18 AT 8:30am COMPREHENSIVE METABOLIC [id number] 06:57:00 Test Item Value Reference Range Interpretation [...] NOT APPLICABLE FOR DIALYSIS PATIEN TS. POCT-GLUCOSE [id number] 06:33:00 Test Item Value Reference Range Interpretation Comments POC-GLUCOSE METER 226 mg/dL 70-110 H TESTED AT [address] (BEAKER) (test code [address] [facility] [place] = 1538) [address] B-TYPE NATRIURETIC FACTOR (BNP)2018-01-20 06:00:00 Test Item Value Reference Range Interpretation Comments B-TYPE NATRIURETIC PEPTIDE (BEAKER) 371 pg/mL 0-100 H (test code = 700) CBC W/PLT COUNT & AUTO [id number] 05:40:00 Test Item Value Reference Range Interpretation [...] (BEAKER) (test code = 2801) BASIC METABOLIC [id number] 23:25:00 Test Item Value Reference Range Interpretation [...] S NOT APPLICABLE FOR DIALYSIS PATIEN TS. [id number] 23:19:00 Test Item Value Reference Range Interpretation Comments MAGNESIUM (BEAKER) (test code = 1.9 mg/dL 1.5-3.0 627) POCT-GLUCOSE [id number] 21:12:00 Test Item Value Reference Range Interpretation Comments POC-GLUCOSE METER 237 mg/dL 70-110 H TESTED AT [facility] ([facility]) (test code [facility] [place] = 1538) 8[address] POCT-GLUCOSE [id number] 17:00:00 Test Item Value Reference Range Interpretation Comments POC-GLUCOSE METER 156 mg/dL 70-110 H TESTED AT [facility] ([facility]) (test code [facility] [place] = 1538) 22310 POCT-GLUCOSE [id number] 12:51:00 Test Item Value Reference Range Interpretation Comments POC-GLUCOSE METER 135 mg/dL 70-110 H TESTED AT [address] ([facility]) (test code [facility] [place] = 1538) 44889 POCT-GLUCOSE [id number] 08:16:00 Test Item Value Reference Range Interpretation Comments POC-GLUCOSE METER 212 mg/dL 70-110 H TESTED AT [address] ([facility]) (test code [facility] [place] = 1538) [address] VANCOMYCIN LEVEL, [id number] 21:00:00 Test Item Value Reference Range Interpretation Comments VANCOMYCIN TROUGH ([facility]) (test 14.3 ug/mL 10.0-20.0 code = 522) POCT-GLUCOSE [id number] 20:56:00 Test Item Value Reference Range Interpretation Comments POC-GLUCOSE METER 216 mg/dL 70-110 H TESTED AT [address] ([facility]) (test code [facility] [place] = 1538) 01457 POCT-GLUCOSE [id number] 17:03:00 Test Item Value Reference Range Interpretation Comments POC-GLUCOSE METER 269 mg/dL 70-110 H TESTED AT [address] ([facility]) (test code [facility] [place] = 1538) [address] POCT-GLUCOSE [id number] 06:22:00 Test Item Value Reference Range Interpretation Comments POC-GLUCOSE METER 115 mg/dL 70-110 H TESTED AT [address] ([facility]) (test code [facility] [place] = 1538) 311[address] BASIC METABOLIC [id number] 04:43:00 Test Item Value Reference Range Interpretation [...] S NOT APPLICABLE FOR DIALYSIS PATIEN TS. [id number] 04:37:00 Test Item Value Reference Range Interpretation Comments MAGNESIUM (BEAKER) (test code = 1.8 mg/dL 1.5-3.0 627) CBC W/PLT COUNT & AUTO [id number] 04:24:00 Test Item Value Reference Range Interpretation [...] PERCENT (BEAKER) (test code = 2801) POCT-GLUCOSE [id number] 20:55:00 Test Item Value Reference Range Interpretation Comments POC-GLUCOSE METER 145 mg/dL 70-110 H TESTED AT [address] ([facility]) (test code [address] [facility] [place] = 1538) 45[address] VENOUS DOPPLER LEGS, [id number] 17:50:00Reason for exam:->r/o DVT FINAL REPORT Comparison: [...] MDReport Verified Date/Time: 01/17/2018 17:50:07 Reading Location: [facility] Mammo Reading Room POCT-GLUCOSE [id number] 17:04:00 Test Item Value Reference Range Interpretation Comments POC-GLUCOSE METER 134 mg/dL 70-110 H TESTED AT [address] ([facility]) (test code [address] [facility] [place] = 1538) 8[address] POCT-GLUCOSE [id number] 11:54:00 Test Item Value Reference Range Interpretation Comments POC-GLUCOSE METER 219 mg/dL 70-110 H TESTED AT [address] ([facility]) (test code [address] [facility] [place] = 1538) 74194 POCT-GLUCOSE [id number] 09:10:00 Test Item Value Reference Range Interpretation Comments POC-GLUCOSE METER 48 mg/dL 70-110 L TESTED AT [address] ([facility]) (test code = [address] [facility] [place] 1538) [address] BASIC METABOLIC [id number] 06:27:00 Test Item Value Reference Range Interpretation [...] NOT APPLICABLE FOR DIALYSIS PATIEN TS. POCT-GLUCOSE [id number] 06:26:00 Test Item Value Reference Range Interpretation Comments POC-GLUCOSE METER 101 mg/dL 70-110 TESTED AT [address] ([facility]) (test code [facility] [place] = 1538) 29437 CBC W/PLT COUNT & AUTO [id number] 05:58:00 Test Item Value Reference Range Interpretation [...] PERCENT (BEAKER) (test code = 2801) TROPONIN [id number] 00:11:00 Test Item Value Reference Range Interpretation [...] = 700) RAD, CHEST, 1 VIEW, NON [id number] 00:09:00Reason for exam:->SHORTNESS OF BREATHReason for exam:->EDEMAReason [...] Robert MDReport Verified Date/Time: 01/17/2018 00:09:15 Reading Location:[address] [place] Body Reading Room BASIC METABOLIC [id number] 00:02:00 Test Item Value Reference Range Interpretation [...] PATIEN TS. CBC W/PLT COUNT & AUTO [id number] 23:35:00 Test Item Value Reference Range Interpretation [...] PERCENT (BEAKER) (test code = 2801) BLOOD [id number] 10:00:00 Test Item Value Reference Range Interpretation Comments CULTURE (BEAKER) (test No growth in 5 days code = 1095) BLOOD [id number] 10:00:00 Test Item Value Reference Range Interpretation Comments CULTURE (BEAKER) (test No growth in 5 days code = 1095) WOUND CULTURE + GRAM [id number] 10:10:00 Test Item Value Reference Interpretation Comments [...] (test code = cocci in pairs and 194589) clusters POCT-GLUCOSE [id number] 17:33:00 Test Item Value Reference Range Interpretation Comments POC-GLUCOSE METER 105 mg/dL 70-110 TESTED AT [place] [address] [place] (BEAKER) (test code [facility] [place] = 1538) [address] URINALYSIS W/ REFLEX URINE [id number] 09:56:00 Test Item Value Reference Range Interpretation [...] 1663) SOURCE(BEAKER) (test code = 2795) POCT-GLUCOSE [id number] 08:36:00 Test Item Value Reference Range Interpretation Comments POC-GLUCOSE METER 162 mg/dL 70-110 H TESTED AT [facility] [address] ([facility]) (test code [facility] = 1538) [address] TSH/FREE T4 IF [id number] 07:04:00 Test Item Value Reference Range Interpretation Comments THYROID STIMULATING HORMONE 4.64 uIU/mL 0.35-5.50 (BEAKER) (test code = 772) LIPID [id number] 06:50:00 Test Item Value Reference Range Interpretation [...] 130-159 High 160-189 Very High >=190BASIC METABOLIC [id number] 06:48:00 Test Item Value Reference Range Interpretation [...] PATIEN TS. CBC W/PLT COUNT & AUTO [id number] 06:33:00 Test Item Value Reference Range Interpretation [...] PERCENT (BEAKER) (test code = 2801) HEMOGLOBIN [id number] 06:32:00 Test Item Value Reference Range Interpretation Comments HEMOGLOBIN A1C (CECILIO) (test code = 10.4 % 4.3-6.1 H 368) VENOUS DOPPLER LEGS, [id number] 05:53:00Reason for exam:->edema rule out DVT/ CellulitisFINAL [...] MDReport Verified Date/Time: 12/08/2017 05:53:51 Reading Location: [address] Body Reading Room TROPONIN [id number] 00:46:00 Test Item Value Reference Range Interpretation [...] acidosis, acute neurological disease, and persistent tachyarrhythmia.POCT-GLUCOSE [id number] 21:14:00 Test Item Value Reference Range Interpretation Comments POC-GLUCOSE METER 221 mg/dL 70-110 H TESTED AT [address] ([facility]) (test code [address] [facility] [place] = 1538) 357[address] POCT-GLUCOSE [id number] 16:43:00 Test Item Value Reference Range Interpretation Comments POC-GLUCOSE METER 371 mg/dL 70-110 H TESTED AT [place] [address] [place] (BEAKER) (test code [address] [facility] [place] = 1538) 11869 CREATINE KINASE (CK), TOTAL AND [id number] 14:26:00 Test Item Value Reference Range Interpretation [...] acute neurological disease, and persistent tachyarrhythmia.BASIC METABOLIC [id number] 14:00:00 Test Item Value Reference Range Interpretation [...] S NOT APPLICABLE FOR DIALYSIS PATIEN TS. [id number] 13:54:00 Test Item Value Reference Range Interpretation Comments MAGNESIUM (BEAKER) 2.1 mg/dL 1.5-3.0 Specimen slightly (test code = 627) hemolyzed B-TYPE NATRIURETIC FACTOR (BNP)2017-12-07 13:48:00 Test Item Value Reference Range Interpretation Comments B-TYPE NATRIURETIC PEPTIDE (BEAKER) 520 pg/mL 0-100 H (test code = 700) [id number] 13:19:00 Test Item Value Reference Range Interpretation [...] Information (Auto Output)CBC W/PLT COUNT & AUTO [id number] 13:07:00 Test Item Value Reference Range Interpretation [...] = 2801) RAD, CHEST, 1 VIEW, NON [id number] 12:44:00Reason for exam:->CHEST PAIN FINAL REPORT Chest [...] MDReport Verified Date/Time: 12/07/2017 12:44:27 Reading Location: [address] Radiology Reading Room CREATINE KINASE (CK), TOTAL AND [id number] 02:36:00 Test Item Value Reference Range Interpretation [...] acute neurological disease, and persistent tachyarrhythmia.COMPREHENSIVE METABOLIC [id number] 02:28:00 Test Item Value Reference Range Interpretation [...] PATIEN TS. CBC W/PLT COUNT & AUTO [id number] 02:14:00 Test Item Value Reference Range Interpretation [...] PERCENT (BEAKER) (test code = 2801) KETONE, [id number] 01:55:00 Test Item Value Reference Range Interpretation Comments KETONES, BLOOD (BEAKER) (test code 0.2 mmol/L <0.4 = 1103) RAD, CHEST, 1 VIEW, NON [id number] 01:46:00Reason for exam:->pacemaker placement,pt feels it was [...] MDReport Verified Date/Time: 11/27/2017 01:46:38 Reading Location: [address] Reading Room POCT-GLUCOSE [id number] 13:29:00 Test Item Value Reference Range Interpretation Comments POC-GLUCOSE METER 214 mg/dL 70-110 H TESTED AT [facility] [address] (BEAKER) (test code [address] [facility] [place] = 1538) [address] BASIC METABOLIC [id number] 06:48:00 Test Item Value Reference Range Interpretation [...] PATIEN TS. CBC W/PLT COUNT & AUTO [id number] 06:23:00 Test Item Value Reference Range Interpretation [...] L 0.00-0.20 (test code = 417) POCT-GLUCOSE [id number] 06:20:00 Test Item Value Reference Range Interpretation Comments POC-GLUCOSE METER 184 mg/dL 70-110 H TESTED AT [address] ([facility]) (test code [facility] [place] = 1538) 14857 POCT-GLUCOSE [id number] 20:47:00 Test Item Value Reference Range Interpretation Comments POC-GLUCOSE METER 323 mg/dL 70-110 H Notified Becky Jeffries MD/TESTED AT ([facility]) (test code [facility] [address] [facility] POINT = 1538) [facility] [address] POCT-GLUCOSE [id number] 16:55:00 Test Item Value Reference Range Interpretation Comments POC-GLUCOSE METER 320 mg/dL 70-110 H TESTED AT [facility] [address] (BEAKER) (test code [address] [facility] [place] = 1214) [address] B-TYPE NATRIURETIC FACTOR (BNP)2017-09-08 11:28:00 Test Item Value Reference Range Interpretation Comments B-TYPE NATRIURETIC PEPTIDE (BEAKER) 800 pg/mL 0-100 H (test code = 700) TROPONIN [id number] 11:25:00 Test Item Value Reference Range Interpretation [...] acute neurological disease, and persistent tachyarrhythmia.BASIC METABOLIC [id number] 11:17:00 Test Item Value Reference Range Interpretation [...] S NOT APPLICABLE FOR DIALYSIS PATIEN TS. [id number] 11:15:00 Test Item Value Reference Range Interpretation [...] (Auto Output)Final Information (Auto Output)Final Information (Auto Output)[id number] 11:11:00 Test Item Value Reference Range Interpretation Comments MAGNESIUM (BEAKER) (test code = 2.0 mg/dL 1.5-3.0 627) RAD, CHEST, 1 VIEW, NON [id number] 10:55:00Reason for exam:->chest pain FINAL REPORT CLINICAL HISTORY: chest pain TECHNIQUE: 1 view of the chest. COMPARISON: 06/10/2017 IMPRESSION: There is new pulmonary vascular congestion without lobar consolidation. There is blunting of the left costophrenic angle. The cardiomediastinal silhouette is magnified bytechnique with a pacemaker. Signed: Sia Hensley MDReport Verified Date/Time: 09/08/2017 10:55:33Reading Location: [facility] Radiology Reading Room CBC W/PLT COUNT & AUTO [id number] 10:47:00 Test Item Value Reference Range Interpretation [...] 0.00-0.20 (test code = 417) HIV-1 PCR, [id number] 05:37:00 Test Item Value Reference Range Interpretation Comments HIV-1 RESULT HIV RNA not detected HIV RNA not detected COMPONENT (BEAKER) (test code = 2703) This test uses a Real-Time Polymerase Chain Reaction (RT-PCR) methodology to detect a highly conserved region of the HIV-1 gag gene and was performed using the JENNIFER AmpliPrep/JENNIFER TaqMan HIV-1 test kit version 2.0 ([employer]Reportable range for this assay is 20 - 10,000,000 copies per mL (1.3 - 7.0 Log copies/mL).DOUBLE-STRANDED DNA (DSDNA) [id number] 10:04:00 Test Item Value Reference Range Interpretation Comments ANTI-DNA DS (BEAKER) (test code = Negative 1055) TIFF TITER AND [id number] 11:54:00 Test Item Value Reference Range Interpretation Comments TIFF TITER (BEAKER) (test code = :160 1541) TIFF PATTERN (BEAKER) (test code = Homogeneous 1781) ANTI-NUCLEAR ANTIBODY (TIFF)2017-06-14 11:53:00 Test Item Value Reference Range Interpretation Comments ANTI-NUCLEAR ANTIBODY (TIFF) (BEAKER) Positive Negative A (test code = 418) POCT-GLUCOSE [id number] 05:52:00 Test Item Value Reference Range Interpretation Comments POC-GLUCOSE METER 96 mg/dL 70-110 TESTED AT [address] ([facility]) (test code = [place] [address]) [address] BASIC METABOLIC [id number] 05:15:00 Test Item Value Reference Range Interpretation [...] NOT APPLICABLE FOR DIALYSIS PATIEN TS. POCT-GLUCOSE [id number] 05:09:00 Test Item Value Reference Range Interpretation Comments POC-GLUCOSE METER 67 mg/dL 70-110 L TESTED AT [address] ([facility]) (test code = [place] [address]) [address] POCT-GLUCOSE [id number] 21:55:00 Test Item Value Reference Range Interpretation Comments POC-GLUCOSE METER 142 mg/dL 70-110 H TESTED AT [address] ([facility]) (test code [facility] [place] = 1538) [address]63 POCT-GLUCOSE [id number] 19:05:00 Test Item Value Reference Range Interpretation Comments POC-GLUCOSE METER 139 mg/dL 70-110 H TESTED AT [address] ([facility]) (test code [facility] [place] = 1538) [address] POCT-GLUCOSE [id number] 16:54:00 Test Item Value Reference Range Interpretation Comments POC-GLUCOSE METER 59 mg/dL 70-110 L TESTED AT [address] ([facility]) (test code = [facility] 1538) [address] POCT-GLUCOSE [id number] 13:19:00 Test Item Value Reference Range Interpretation Comments POC-GLUCOSE METER 235 mg/dL 70-110 H TESTED AT [address] ([facility]) (test code [facility] [place] = 1538) [address] POCT-GLUCOSE [id number] 06:52:00 Test Item Value Reference Range Interpretation Comments POC-GLUCOSE METER 113 mg/dL 70-110 H TESTED AT [address] ([facility]) (test code [facility] [place] = 1538) 86188 POCT-GLUCOSE [id number] 21:48:00 Test Item Value Reference Range Interpretation Comments POC-GLUCOSE METER 183 mg/dL 70-110 H TESTED AT [address] ([facility]) (test code [facility] [place] = 1538) 65523 POCT-GLUCOSE [id number] 17:22:00 Test Item Value Reference Range Interpretation Comments POC-GLUCOSE METER 262 mg/dL 70-110 H TESTED AT [address] ([facility]) (test code [facility] [place] = 1538) [address] POCT-GLUCOSE [id number] 12:30:00 Test Item Value Reference Range Interpretation Comments POC-GLUCOSE METER 131 mg/dL 70-110 H TESTED AT [address] ([facility]) (test code [facility] [place] = 1538) [address] MICROALBUMIN, RANDOM [id number] 12:25:00 Test Item Value Reference Range Interpretation Comments MICROALBUMIN URINE (BEAKER) (test 59.0 mg/dL code = 1794) Reference Range: No NormalsHEPATITIS PANEL, [id number] 11:31:00 Test Item Value Reference Range Interpretation Comments HEPATITIS A IGM ANTIBODY (BEAKER) Nonreactive Nonreactive (test code = 498) HEPATITIS B CORE IGM ANTIBODY Nonreactive Nonreactive (BEAKER) (test code = 645) HEPATITIS C ANTIBODY (BEAKER) Nonreactive Nonreactive (test code = 367) HEPATITIS B SURFACE ANTIGEN (2) Nonreactive Nonreactive (BEAKER) (test code = 2585) COMPLEMENT COMPONENT [id number] 11:09:00 Test Item Value Reference Range Interpretation Comments C4 COMPLEMENT (BEAKER) (test code = 28 mg/dL 15-57 394) COMPLEMENT COMPONENT [id number] 11:09:00 Test Item Value Reference Range Interpretation Comments C3 COMPLEMENT (BEAKER) (test code = 145 mg/dL 82-193 393) POCT-GLUCOSE [id number] 06:48:00 Test Item Value Reference Range Interpretation Comments POC-GLUCOSE METER 75 mg/dL 70-110 TESTED AT [address] (BEAKER) (test code = [address] [facility] 1538) [address] TROPONIN [id number] 05:58:00 Test Item Value Reference Range Interpretation [...] acute neurological disease, and persistent tachyarrhythmia.BASIC METABOLIC [id number] 05:49:00 Test Item Value Reference Range Interpretation [...] = 358) GLUCOSE RANDOM 92 mg/dL 70-110 ([facility]) (test code = 652) CALCIUM (BEAKER) 8.5 mg/dL 8.5-10.5 (test code = 697) EGFR (BEAKER) (test 51 mL/min/1.73 ESTIMA JOSÉ LUIS GFR IS code = 1092) sq m NOT ACCURATE CREATININE CLEARANCE IN PREDICTING GLOMERULAR FILTRATION RATE . ESTIMATED GFR I S NOT APPLICABLE FOR DIALYSIS PATIEN TS. [id number] 05:48:00 Test Item Value Reference Range Interpretation Comments PHOSPHORUS ([facility]) (test code = 4.2 mg/dL 2.5-4.5 604) POCT-GLUCOSE [id number] 21:18:00 Test Item Value Reference Range Interpretation Comments POC-GLUCOSE METER 146 mg/dL 70-110 H TESTED AT [address] ([facility]) (test code [address] [facility] = [id number]) [id number] TROPONIN [id number] 18:26:00 Test Item Value Reference Range Interpretation Comments TROPONIN I ([facility]) (test code = 0.04 ng/mL 0.00-0.15 397) [...] acidosis, acute neurological disease, and persistent tachyarrhythmia.POCT-GLUCOSE [id number] 17:07:00 Test Item Value Reference Range Interpretation Comments POC-GLUCOSE METER 97 mg/dL 70-110 TESTED AT [address] ([place] [facility]) (test code = [address] [facility] 1538) [address] POCT-GLUCOSE [id number] 13:31:00 Test Item Value Reference Range Interpretation Comments POC-GLUCOSE METER 125 mg/dL 70-110 H TESTED AT [facility] [address] (BEAKER) (test code [address] [facility] [place] = 1538) [address] TROPONIN [id number] 06:11:00 Test Item Value Reference Range Interpretation [...] acidosis, acute neurological disease, and persistent tachyarrhythmia.LIPID [id number] 06:05:00 Test Item Value Reference Range Interpretation [...] 130-159 High 160-189 Very High >=190BASIC METABOLIC [id number] 06:03:00 Test Item Value Reference Range Interpretation [...] S NOT APPLICABLE FOR DIALYSIS PATIEN TS. [id number] 05:57:00 Test Item Value Reference Range Interpretation Comments MAGNESIUM (BEAKER) (test code = 1.9 mg/dL 1.5-3.0 627) HEMOGLOBIN [id number] 05:56:00 Test Item Value Reference Range Interpretation Comments HEMOGLOBIN A1C (BEAKER) (test code = 7.7 % 4.3-6.1 H 368) CBC W/PLT COUNT & AUTO [id number] 05:31:00 Test Item Value Reference Range Interpretation [...] L 0.00-0.20 (test code = 417) TROPONIN [id number] 22:53:00 Test Item Value Reference Range Interpretation [...] acute neurological disease, and persistent tachyarrhythmia.U/S, ABDOMINAL, [id number] 22:08:00Reason for exam:->AscitesReason for exam:->BLOATEDFINAL REPORT U/S, [...] MDReport Verified Date/Time: 06/10/2017 22:08:13 Reading Location: [address] Reading Room URINALYSIS W/ REFLEX URINE [id number] 18:41:00 Test Item Value Reference Range Interpretation [...] 1663) SOURCE(BEAKER) (test code = 2795) TROPONIN [id number] 13:07:00 Test Item Value Reference Range Interpretation [...] H (test code = 700) HEPATIC FUNCTION [id number] 12:59:00 Test Item Value Reference Range Interpretation [...] (test code = 23 U/L 5-50 347) [id number] 12:59:00 Test Item Value Reference Range Interpretation Comments LIPASE (BEAKER) (test code = 749) 19 U/L 6-51 BASIC METABOLIC [id number] 12:57:00 Test Item Value Reference Range Interpretation [...] PATIEN TS. CBC W/PLT COUNT & AUTO [id number] 12:37:00 Test Item Value Reference Range Interpretation [...] = 417) RAD, CHEST, 1 VIEW, NON [id number] 12:32:00Reason for exam:->shortness of breathReason for exam:->BLOATEDShould this be performed at the [facility]?->YesFINAL REPORT Comparison: 04/06/2012 TECHNIQUE: Single view of the chest FINDINGS: Lung volumes are low. Prominence of the cardiac silhouette and vasculature which may be related topoor inspiration and technique . There is no gross consolidation identified. No overt edema or largepleural effusion. Left-sided pacing device noted. No acute skeletal abnormality. Signed: Veronica Bonilla Verified Date/Time: 06/10/2017 12:32:49 Reading Location: [facility] Radiology Reading Room POCT-GLUCOSE [id number] 07:40:00 Test Item Value Reference Range Interpretation Comments POC-GLUCOSE METER 100 mg/dL 70-110 TESTED AT [address] ([facility]) (test code [address] [facility] = 1538) [address] POCT-GLUCOSE [id number] 06:57:00 Test Item Value Reference Range Interpretation Comments POC-GLUCOSE METER 50 mg/dL 70-110 L TESTED AT [address] ([facility]) (test code = [address] [facility] 1538) [address] POCT-GLUCOSE [id number] 20:59:00 Test Item Value Reference Range Interpretation Comments POC-GLUCOSE METER 142 mg/dL 70-110 H TESTED AT [address] (BEAKER) (test code [address] [facility] [place] = 1538) [address] POCT-GLUCOSE [id number] 17:23:00 Test Item Value Reference Range Interpretation Comments POC-GLUCOSE METER 123 mg/dL 70-110 H TESTED AT [address] (BEAKER) (test code [address] [facility] [place] = 1538) [address] POCT-GLUCOSE [id number] 12:38:00 Test Item Value Reference Range Interpretation Comments POC-GLUCOSE METER 153 mg/dL 70-110 H TESTED AT [address] (BEAKER) (test code PO[address] [facility] = 1538) [address] BASIC METABOLIC [id number] 05:49:00 Test Item Value Reference Range Interpretation [...] NOT APPLICABLE FOR DIALYSIS PATIEN TS. POCT-GLUCOSE [id number] 05:36:00 Test Item Value Reference Range Interpretation Comments POC-GLUCOSE METER 74 mg/dL 70-110 TESTED AT [facility] (BEAKER) (test code = [address] [facility] 1538) [address] CBC W/PLT COUNT & AUTO [id number] 05:29:00 Test Item Value Reference Range Interpretation [...] L 0.00-0.20 (test code = 417) POCT-GLUCOSE [id number] 19:53:00 Test Item Value Reference Range Interpretation Comments POC-GLUCOSE METER 120 mg/dL 70-110 H TESTED AT [address] ([facility]) (test code [address] [facility] [place] = 1538) [address] POCT-GLUCOSE [id number] 15:41:00 Test Item Value Reference Range Interpretation Comments POC-GLUCOSE METER 135 mg/dL 70-110 H TESTED AT [address] ([facility]) (test code [address] [facility] [place] = 1538) [address] RAD, CHEST, 1 VIEW, NON [id number] 12:31:00Reason for exam:->follow up FINAL REPORT COMPARISON: 04/03/2017 TECHNIQUE: Single view of the chest FINDINGS: Small left pleural effusion with adjacent airspace disease. There is mild vascular congestion elsewhere. Cardiac silhouette is enlarged. Left-sided pacing device noted. Signed: Gab [facility] Verified Date/Time: 04/06/2017 12:31:34 Reading Location: [facility] Radiology Reading Room POCT- GLUCOSE [id number] 11:39:00 Test Item Value Reference Range Interpretation Comments POC-GLUCOSE METER 184 mg/dL 70-110 H TESTED AT [address] ([facility]) (test code [address] [facility] [place] = 1538) [address] POCT-GLUCOSE [id number] 07:18:00 Test Item Value Reference Range Interpretation Comments POC-GLUCOSE METER 83 mg/dL 70-110 TESTED AT [address] ([facility]) (test code = [address] [facility] 1538) [address] BASIC METABOLIC [id number] 06:01:00 Test Item Value Reference Range Interpretation [...] = 700) CBC W/PLT COUNT & AUTO [id number] 05:39:00 Test Item Value Reference Range Interpretation [...] L 0.00-0.20 (test code = 417) POCT-GLUCOSE [id number] 21:56:00 Test Item Value Reference Range Interpretation Comments POC-GLUCOSE METER 144 mg/dL 70-110 H TESTED AT [address] ([facility]) (test code [address] [facility] [place] = 1538) [address] POCT-GLUCOSE [id number] 16:38:00 Test Item Value Reference Range Interpretation Comments POC-GLUCOSE METER 153 mg/dL 70-110 H TESTED AT [address] ([facility]) (test code [address] [facility] [place] = 1538) [address] POCT-GLUCOSE [id number] 12:52:00 Test Item Value Reference Range Interpretation Comments POC-GLUCOSE METER 144 mg/dL 70-110 H TESTED AT [address] ([facility]) (test code [address] [facility] [place] = 1538) [address]252 POCT-GLUCOSE [id number] 06:07:00 Test Item Value Reference Range Interpretation Comments POC-GLUCOSE METER 124 mg/dL 70-110 H TESTED AT [address] ([facility]) (test code [address] [facility] [place] = 1538) [address] BASIC METABOLIC [id number] 05:26:00 Test Item Value Reference Range Interpretation [...] S NOT APPLICABLE FOR DIALYSIS PATIEN TS. [id number] 05:20:00 Test Item Value Reference Range Interpretation Comments MAGNESIUM (BEAKER) (test code = 2.4 mg/dL 1.5-3.0 627) CBC W/PLT COUNT & AUTO [id number] 05:19:00 Test Item Value Reference Range Interpretation [...] L 0.00-0.20 (test code = 417) POCT-GLUCOSE [id number] 19:59:00 Test Item Value Reference Range Interpretation Comments POC-GLUCOSE METER 198 mg/dL 70-110 H TESTED AT [address] ([facility]) (test code [address] [facility] [place] = 1538) [address] POCT-GLUCOSE [id number] 16:34:00 Test Item Value Reference Range Interpretation Comments POC-GLUCOSE METER 230 mg/dL 70-110 H TESTED AT [address] ([facility]) (test code [address] [facility] [place] = 1538) 44283 POCT-GLUCOSE [id number] 13:02:00 Test Item Value Reference Range Interpretation Comments POC-GLUCOSE METER 273 mg/dL 70-110 H TESTED AT [address] ([facility]) (test code [address] [facility] [place] = 1538) [address] B-TYPE NATRIURETIC FACTOR (BNP)2017-04-04 06:55:00 Test Item Value Reference Range Interpretation Comments B-TYPE NATRIURETIC PEPTIDE (AKER) 824 pg/mL 0-100 H (test code = 700) BASIC METABOLIC [id number] 06:47:00 Test Item Value Reference Range Interpretation [...] S NOT APPLICABLE FOR DIALYSIS PATIEN TS. [id number] 06:41:00 Test Item Value Reference Range Interpretation Comments MAGNESIUM (BEAKER) (test code = 2.2 mg/dL 1.5-3.0 627) CBC W/PLT COUNT & AUTO [id number] 06:32:00 Test Item Value Reference Range Interpretation [...] 0-100 H (test code = 700) TROPONIN [id number] 12:05:00 Test Item Value Reference Range Interpretation [...] neurological disease, and persistent tachyarrhythmia.RAD, CHEST, 2 [id number] 11:59:00 Reason for exam:->SOBFINAL REPORT History: Shortness [...] MDReport Verified Date/Time: 04/03/2017 11:59:26 Reading Location: [facility] C013X Ortho Consult Reading Room BASIC METABOLIC [id number] 11:57:00 Test Item Value Reference Range Interpretation [...] PATIEN TS. CBC W/PLT COUNT & AUTO [id number] 11:42:00 Test Item Value Reference Range Interpretation [...] = 417) RAD, CHEST, 1 VIEW, NON [id number] 11:12:00Reason for exam:->follow up FINAL REPORT Chest, 1 view Clinical history: follow up Comparison: 03/25/2017Discussion: Left-sided pacemaker in position without pneumothorax. Small left pleural effusion is seen with atelectasis. The cardiac silhouette is enlarged with mild perihilar edema. No acute osseous abnormality. Signed: Jamir Mai MDReport Verified Date/Time: 03/27/2017 11:12:12 Reading Location: [facility] C013X Ortho Consult Reading Room TROPONIN [id number] 08:29:00 Test Item Value Reference Range Interpretation [...] = 700) CREATINE KINASE (CK), TOTAL AND [id number] 08:27:00 Test Item Value Reference Range Interpretation Comments CREATINE KINASE TOTAL (BEAKER) 303 U/L 40-250 H (test code = 380) CREATINE KINASE-MB (BEAKER) (test 5.9 ng/mL 0.0-4.9 H code = 750) CREATINE KINASE-MB INDEX (BEAKER) 1.9 % (test code = 395) CK-MB Reference Range:<5 Normal5-10 Borderline>10 AbnormalBASIC METABOLIC [id number] 08:18:00 Test Item Value Reference Range Interpretation [...] PATIEN TS. CBC W/PLT COUNT & AUTO [id number] 07:44:00 Test Item Value Reference Range Interpretation [...] L 0.00-0.20 (test code = 417) POCT-GLUCOSE [id number] 05:54:00 Test Item Value Reference Range Interpretation Comments POC-GLUCOSE METER 226 mg/dL 70-110 H TESTED AT [address] ([facility]) (test code [address] [facility] [place] = 1538) [address] POCT-GLUCOSE [id number] 20:54:00 Test Item Value Reference Range Interpretation Comments POC-GLUCOSE METER 180 mg/dL 70-110 H TESTED AT [address] ([facility]) (test code [address] [facility] [place] = 1538) [address] POCT-GLUCOSE [id number] 16:40:00 Test Item Value Reference Range Interpretation Comments POC-GLUCOSE METER 262 mg/dL 70-110 H TESTED AT [address] ([facility]) (test code [address] [facility] [place] = 1538) 55479 LIPID [id number] 15:41:00 Test Item Value Reference Range Interpretation Comments TRIGLYCERIDES (BEAKER) (test code = 86 mg/dL 540) CHOLESTEROL (BEAKER) (test code = 203 mg/dL 631) HDL CHOLESTEROL (BEAKER) (test code 33 mg/dL = 976) LDL CHOLESTEROL CALCULATED ([facility]) 153 mg/dL (test code = 633) Triglyceride Reference Range: Low Risk <150 Borderline 150-199 High Risk 200-499 Very High Risk >=500Cholesterol Reference Range: Low Risk <200 Borderline 200-239 High Risk >240HDL Cholesterol Reference Range: Low Risk >=60 High Risk <40LDL Cholesterol Reference Range: Optimal <100 Near Optimal 100-129 Borderline 130-159 High 160-189 Very High >=190TSH/FREE T4 IF [id number] 15:27:00 Test Item Value Reference Range Interpretation Comments THYROID STIMULATING HORMONE 4.34 uIU/mL 0.35-5.50 (BEAKER) (test code = 772) TROPONIN [id number] 15:18:00 Test Item Value Reference Range Interpretation [...] H (test code = 700) BASIC METABOLIC [id number] 15:03:00 Test Item Value Reference Range Interpretation [...] NOT APPLICABLE FOR DIALYSIS PATIEN TS. HEMOGLOBIN [id number] 08:23:00 Test Item Value Reference Range Interpretation Comments HEMOGLOBIN A1C (BEAKER) (test code = 8.8 % 4.3-6.1 H 368) CBC W/PLT COUNT & AUTO [id number] 07:23:00 Test Item Value Reference Range Interpretation [...] L 0.00-0.20 (test code = 417) POCT-GLUCOSE [id number] 06:53:00 Test Item Value Reference Range Interpretation Comments POC-GLUCOSE METER 176 mg/dL 70-110 H TESTED AT [address] ([facility]) (test code [facility] [facility] [place] = 1538) 265[address] TROPONIN [id number] 23:25:00 Test Item Value Reference Range Interpretation [...] H code = 750) CREATINE KINASE-MB INDEX ([facility]) 1.7 % (test code = 395) CK-MB Reference Range:<5 Normal5-10 Borderline>10 AbnormalPOCT-GLUCOSE [id number] 20:54:00 Test Item Value Reference Range Interpretation Comments POC-GLUCOSE METER 157 mg/dL 70-110 H TESTED AT [facility] [address] ([facility]) (test code [address] [facility] [place] = 1538) [address] TROPONIN [id number] 14:46:00 Test Item Value Reference Range Interpretation Comments TROPONIN I ([facility]) (test code = 0.60 ng/mL 0.00-0.15 HH [...] Reference Range Interpretation Comments B-TYPE NATRIURETIC PEPTIDE ([facility]) 624 pg/mL 0-100 H (test code = 700) PROTHROMBIN [id number] 14:42:00 Test Item Value Reference Range Interpretation Comments PROTIME (MARTY) (test code = 11.4 seconds 9.3-12.0 759) INR ([facility]) (test code = 370) 1.1 <=5.9 RECOMMENDED COUMADIN/WARFARIN INR THERAPY RANGESSTANDARD DOSE: 2.0 - 3.0 Includes: PROPHYLAXIS forvenous thrombosis, systemic embolization; TREATMENT for venous thrombosis and/or pulmonary embolus.HIGH RISK: Target INR is 2.5-3.5 for patients with mechanical heart valves.[id number] 14:42:00 Test Item Value Reference Range Interpretation Comments PARTIAL THROMBOPLASTIN TIME 27.0 seconds 23.0-35.0 ([facility]) (test code = 760) CREATINE KINASE (CK), TOTAL AND [id number] 14:41:00 Test Item Value Reference Range Interpretation Comments CREATINE KINASE TOTAL (BEAKER) 328 U/L 40-250 H (test code = 380) CREATINE KINASE-MB (BEAKER) (test 5.9 ng/mL 0.0-4.9 H code = 750) CREATINE KINASE-MB INDEX (BEAKER) 1.8 % (test code = 395) CK-MB Reference Range:<5 Normal5-10 Borderline>10 AbnormalCOMPREHENSIVE METABOLIC [id number] 14:34:00 Test Item Value Reference Range Interpretation [...] PATIEN TS. CBC W/PLT COUNT & AUTO [id number] 14:04:00 Test Item Value Reference Range Interpretation [...] = 417) RAD, CHEST, 1 VIEW, NON [id number] 13:52:00Reason for exam:->SHORTNESS OF BREATHReason for exam:->EDEMAShould [...] MDReport Verified Date/Time: 03/25/2017 13:52:22 Reading Location: [facility] Radiology Reading Room POCT- GLUCOSE [id number] 12:04:00 Test Item Value Reference Range Interpretation Comments POC-GLUCOSE METER 171 mg/dL 70-110 H TESTED AT [address] ([facility]) (test code [facility] [facility] [place] = 1538) [address] BASIC METABOLIC [id number] 08:14:00 Test Item Value Reference Range Interpretation [...] PATIEN TS. CBC W/PLT COUNT & AUTO [id number] 07:57:00 Test Item Value Reference Range Interpretation [...] (test code = 416) BASOPHILS ABSOLUTE COUNT ([facility]) 0.10 K/ L 0.00-0.20 (test code = 417) POCT-GLUCOSE [id number] 07:11:00 Test Item Value Reference Range Interpretation Comments POC-GLUCOSE METER 164 mg/dL 70-110 H TESTED AT [address] ([facility]) (test code [facility] [facility] [place] = 1538) [address] POCT-GLUCOSE [id number] 22:24:00 Test Item Value Reference Range Interpretation Comments POC-GLUCOSE METER 222 mg/dL 70-110 H TESTED AT [address] ([facility]) (test code [facility] [place] = 1538) 29173 POCT-GLUCOSE [id number] 17:12:00 Test Item Value Reference Range Interpretation Comments POC-GLUCOSE METER 187 mg/dL 70-110 H TESTED AT [address] ([facility]) (test code [facility] [facility] [place] = 1538) 97169 POCT-GLUCOSE [id number] 17:12:00 Test Item Value Reference Range Interpretation Comments POC-GLUCOSE METER 190 mg/dL 70-110 H TESTED AT [address] ([facility]) (test code [facility] [facility] [place] = 1538) 89386 POCT-GLUCOSE [id number] 05:55:00 Test Item Value Reference Range Interpretation Comments POC-GLUCOSE METER 181 mg/dL 70-110 H TESTED AT [address] ([facility]) (test code [facility] [facility] [place] = 1538) [address] POCT-GLUCOSE [id number] 21:23:00 Test Item Value Reference Range Interpretation Comments POC-GLUCOSE METER 305 mg/dL 70-110 H Baby teste d Mother ID ([facility]) (test code used/[facility] [address] [place] [address] = 1538) [address] [facility] [address] POCT-GLUCOSE [id number] 19:05:00 Test Item Value Reference Range Interpretation Comments POC-GLUCOSE METER 181 mg/dL 70-110 H TESTED AT [address] ([facility]) (test code [facility] [place] = 1538) [address]757 POCT-GLUCOSE [id number] 19:04:00 Test Item Value Reference Range Interpretation Comments POC-GLUCOSE METER 252 mg/dL 70-110 H TESTED AT [facility] ([facility]) (test code [address] [facility] [place] = 1538) [address] POCT-GLUCOSE [id number] 19:04:00 Test Item Value Reference Range Interpretation Comments POC-GLUCOSE METER 175 mg/dL 70-110 H TESTED AT [facility] ([facility]) (test code [address] [facility] [place] = 1538) [address] POCT-GLUCOSE [id number] 06:14:00 Test Item Value Reference Range Interpretation Comments POC-GLUCOSE METER 212 mg/dL 70-110 H TESTED AT [facility] ([facility]) (test code [address] [facility] [place] = 1538) [address] CREATINE KINASE (CK), TOTAL AND [id number] 03:39:00 Test Item Value Reference Range Interpretation Comments CREATINE KINASE TOTAL ([facility]) 174 U/L 40-250 (test code = 380) CREATINE KINASE-MB ([facility]) (test 4.7 ng/mL 0.0-4.9 code = 750) CREATINE KINASE-MB INDEX ([facility]) 2.7 % (test code = 395) CK-MB Reference Range:<5 Normal5-10 Borderline>10 AbnormalTROPONIN I 2017-02-05 03:39:00 Test Item Value Reference Range Interpretation Comments TROPONIN I ([facility]) (test code = 0.07 ng/mL 0.00-0.15 397) [...] acidosis, acute neurological disease, and persistent tachyarrhythmia.LIPID [id number] 03:33:00 Test Item Value Reference Range Interpretation Comments TRIGLYCERIDES (BEAKER) (test code = 164 mg/dL 540) CHOLESTEROL (BEAKER) (test code = 217 mg/dL 631) HDL CHOLESTEROL (AKER) (test code 28 mg/dL = 976) LDL CHOLESTEROL CALCULATED ([facility]) 156 mg/dL (test code = 633) Triglyceride Reference Range: Low Risk <150 Borderline 150-199 High Risk 200-499 Very High Risk >=500Cholesterol Reference Range: Low Risk <200 Borderline 200-239 High Risk >240HDL Cholesterol Reference Range: Low Risk >=60 High Risk <40LDL Cholesterol Reference Range: Optimal <100 Near Optimal 100-129 Borderline 130-159 High 160-189 Very High >=190BASIC METABOLIC [id number] 03:31:00 Test Item Value Reference Range Interpretation [...] NOT APPLICABLE FOR DIALYSIS PATIEN TS. HEMOGLOBIN [id number] 03:30:00 Test Item Value Reference Range Interpretation Comments HEMOGLOBIN A1C (BEAKER) (test code = 9.7 % 4.3-6.1 H 368) CBC W/PLT COUNT & AUTO [id number] 03:18:00 Test Item Value Reference Range Interpretation [...] L 0.00-0.20 (test code = 417) POCT-GLUCOSE [id number] 21:13:00 Test Item Value Reference Range Interpretation Comments POC-GLUCOSE METER 285 mg/dL 70-110 H TESTED AT [address] (BEAKER) (test code [facility] [place] = 1538) [address] POCT-GLUCOSE [id number] 21:13:00 Test Item Value Reference Range Interpretation Comments POC-GLUCOSE METER 288 mg/dL 70-110 H TESTED AT [address] (BEAKER) (test code [address] [facility] [place] = 1538) [address] CREATINE KINASE (CK), TOTAL AND [id number] 16:27:00 Test Item Value Reference Range Interpretation Comments CREATINE KINASE TOTAL (RAADAKER) 202 U/L 40-250 (test code = 380) CREATINE KINASE-MB (BEAKER) (test 7.3 ng/mL 0.0-4.9 H code = 750) CREATINE KINASE-MB INDEX (RAADAKER) 3.6 % (test code = 395) CK-MB [...] and persistent tachyarrhythmia.RAD, CHEST, 1 VIEW, NON [id number] 09:17:00Reason for exam:->chest painFINAL REPORT Chest one [...] Gonzales Verified Date/Time: 02/04/2017 09:17:01 Reading Location: [facility] Radiology Reading Room TROPONIN [id number] 09:14:00 Test Item Value Reference Range Interpretation [...] = 700) CREATINE KINASE (CK), TOTAL AND [id number] 09:13:00 Test Item Value Reference Range Interpretation Comments CREATINE KINASE TOTAL (BEAKER) 235 U/L 40-250 (test code = 380) CREATINE KINASE-MB (BEAKER) (test 6.0 ng/mL 0.0-4.9 H code = 750) CREATINE KINASE-MB INDEX (BEAKER) 2.6 % (test code = 395) CK-MB Reference Range:<5 Normal5-10 Borderline>10 AbnormalBASIC METABOLIC [id number] 09:05:00 Test Item Value Reference Range Interpretation [...] S NOT APPLICABLE FOR DIALYSIS PATIEN TS. [id number] 09:03:00 Test Item Value Reference Range Interpretation [...] is 2.5-3.5 for patients with mechanical heart valves.[id number] 09:00:00 Test Item Value Reference Range Interpretation Comments MAGNESIUM (BEAKER) (test code = 2.0 mg/dL 1.5-3.0 627) CBC W/PLT COUNT & AUTO [id number] 08:50:00 Test Item Value Reference Range Interpretation [...] = 700) CREATINE KINASE (CK), TOTAL AND [id number] 11:53:00 Test Item Value Reference Range Interpretation Comments CREATINE KINASE TOTAL (BEAKER) 228 U/L 40-250 (test code = 380) CREATINE KINASE-MB (BEAKER) (test 4.8 ng/mL 0.0-4.9 code = 750) CREATINE KINASE-MB INDEX (BEAKER) 2.1 % (test code = 395) CK-MB Reference Range:<5 Normal5-10 Borderline>10 AbnormalBASIC METABOLIC [id number] 11:52:00 Test Item Value Reference Range Interpretation [...] NOT APPLICABLE FOR DIALYSIS PATIEN TS. TROPONIN [id number] 11:40:00 Test Item Value Reference Range Interpretation [...] acidosis, acute neurological disease, and persistent tachyarrhythmia.PROTHROMBIN TIME/[id number] 10:16:00 Test Item Value Reference Range Interpretation [...] = 417) RAD, CHEST, 1 VIEW, NON [id number] 09:42:00Reason for exam:->SHORTNESS OF BREATHOn \\T\\ off [...] MDReport Verified Date/Time: 12/01/2016 09:42:01 Reading Location: [facility] Radiology Reading Room POCT-GLUCOSE [id number] 18:07:00 Test Item Value Reference Range Interpretation Comments POC-GLUCOSE METER 159 mg/dL 70-110 H TESTED AT [address] ([facility]) (test code [address] [facility] [place] = 1538) [id number] POCT-GLUCOSE [id number] 13:56:00 Test Item Value Reference Range Interpretation Comments POC-GLUCOSE METER 218 mg/dL 70-110 H TESTED AT [address] ([facility]) (test code [facility] [place] = 1538) [id number] POCT-GLUCOSE [id number] 06:26:00 Test Item Value Reference Range Interpretation Comments POC-GLUCOSE METER 118 mg/dL 70-110 H TESTED AT [address] ([facility]) (test code [facility] [address] [facility] [place] = 1538) [id number] HEMOGLOBIN [id number] 02:55:00 Test Item Value Reference Range Interpretation Comments HEMOGLOBIN A1C ([facility]) (test code = 9.3 % 4.3-6.1 H 368) TROPONIN [id number] 02:45:00 Test Item Value Reference Range Interpretation Comments TROPONIN I ([facility]) (test code = 0.04 ng/mL 0.00-0.15 397) [...] Range Interpretation Comments CREATINE KINASE TOTAL (BEAKER) 253 U/L 40-250 H (test code = [...] 130-159 High 160-189 Very High >=190BASIC METABOLIC [id number] 02:38:00 Test Item Value Reference Range Interpretation [...] PATIEN TS. CBC W/PLT COUNT & AUTO [id number] 02:37:00 Test Item Value Reference Range Interpretation [...] L 0.00-0.20 (test code = 417) POCT-GLUCOSE [id number] 21:41:00 Test Item Value Reference Range Interpretation Comments POC-GLUCOSE METER 222 mg/dL 70-110 H TESTED AT [address] ([facility]) (test code [facility] [place] = 1538) [id number] POCT-GLUCOSE [id number] 17:42:00 Test Item Value Reference Range Interpretation Comments POC-GLUCOSE METER 187 mg/dL 70-110 H TESTED AT [address] ([facility]) (test code [facility] [place] = 1538) [id number] TROPONIN [id number] 17:08:00 Test Item Value Reference Range Interpretation [...] 395) CK-MB Reference Range:<5 Normal5-10 Borderline>10 AbnormalPOCT-GLUCOSE [id number] 12:19:00 Test Item Value Reference Range Interpretation Comments POC-GLUCOSE METER 284 mg/dL 70-110 H TESTED AT [address] ([facility]) (test code [facility] [place] = 1538) [address] URINALYSIS W/ REFLEX URINE [id number] 08:37:00 Test Item Value Reference Range Interpretation [...] 0-100 H (test code = 700) CALCIUM, [id number] 06:41:00 Test Item Value Reference Range Interpretation Comments CALCIUM IONIZED (BEAKER) (test 1.14 mmol/L 1.12-1.27 code = 698) PH, BLOOD (BEAKER) (test code = 7.43 1810) CREATINE KINASE (CK), TOTAL AND [id number] 06:14:00 Test Item Value Reference Range Interpretation [...] 0.00-0.20 (test code = 417) BASIC METABOLIC [id number] 06:08:00 Test Item Value Reference Range Interpretation [...] NOT APPLICABLE FOR DIALYSIS PATIEN TS. PROTHROMBIN [id number] 06:01:00 Test Item Value Reference Range Interpretation Comments PROTIME (BEAKER) (test code = 10.2 seconds 9.3-12.0 759) INR (BEAKER) (test code = 370) 1.0 <=5.9 RECOMMENDED COUMADIN/WARFARIN INR THERAPY RANGESSTANDARD DOSE: 2.0 - 3.0 Includes: PROPHYLAXIS forvenous thrombosis, systemic embolization; TREATMENT for venous thrombosis and/or pulmonary embolus.HIGH RISK: Target INR is 2.5-3.5 for patients with mechanical heart valves.TROPONIN [id number] 05:35:00 Test Item Value Reference Range Interpretation [...] CK-MB Reference Range:<5 Normal5-10 Borderline>10 AbnormalBASIC METABOLIC [id number] 05:27:00 Test Item Value Reference Range Interpretation [...] PATIEN TS. CBC W/PLT COUNT & AUTO [id number] 05:11:00 Test Item Value Reference Range Interpretation [...]
--- NOTE | 2021-07-07 08:47 | RAD REPORT ---
EXAM DESCRIPTION: RAD - Tib Fib Right - 07/07/2021 8:32 am CLINICAL HISTORY: PAINfall 2 days earlier COMPARISON: No comparisons FINDINGS: Oblique fracture is present through the head of the fibula with no significant distraction and no angulation deformity. No proximal tibia fracture is identifiable. Curvilinear lucent line is present superolateral margin of the patella. 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 Supra patella region is not well visualized on this tib-fib examinatio n. No other acute or significant tib-fib finding. There are degenerative changes in the medial compar tment of the left knee greater than typically seen at this age. No pathologic bone process. No foreign body or other soft tissue abnormality. IMPRESSION: Nondisplaced, nonangulated proximal fibula fracture. 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 Right ankle findings are detailed in separate report.
--- NOTE | 2021-07-07 08:51 | RAD REPORT ---
EXAM DESCRIPTION: RAD - Ankle Right 3 View - 07/07/2021 8:32 am CLINICAL HISTORY: PAIN, fall 2 days earlier COMPARISON: No comparisons FINDINGS: No fracture of the distal tibia or fibula identifiable. Interosseous ligament injury is no t suspected. Tibiotalar degenerative changes are present with spurring along the articular margins of the tibia and slight narrowing of the joint space. Small plantar and Achilles spurs are present. Midfoot is grossly abnormal. Bones are not optimally visualized. There is spurring or heterotopic bon e along the dorsal margin of the midfoot involving the talonavicular joint space. The midfoot tarsal bones cannot be further assessed on this ankle focused examination. Flattening of the plantar arch is present. Soft tissue swelling is present around the ankle joint. No foreign body in the soft tissues . IMPRESSION: Advanced for age degenerative changes are present at the ankle joint as detailed with no traumatic fracture changes identified. Midfoot is grossly abnormal but not fully assessed on this study. Charcot joint findings are evident but would need dedicated imaging for further assessment if this would alter acute clinical management .
--- NOTE | 2021-07-07 09:09 | EDPHYS ---
Physician Documentation [facility] Name: Binu Mcelroy Age: 45 yrs Sex: Male : 1975 Arrival Date: 07/07/2021 Time: 07:12 Bed 6 Private MD: ED Physician Bharathi Palmer HPI: 07/07 08:01 This 45 yrs old Male presents to ER via Ambulatory with complaints of leg injury and rn pain. 08:01 The patient presents with an injury, pain. The complaints affect the lateral aspect of rn right calf, right arroyo and anterior aspect of right ankle. Onset: The symptoms/episode began/occurred 2 week(s) ago. Modifying factors: The symptoms are alleviated by elevating leg, remaining still, the symptoms are aggravated by movement, weight bearing. Severity of symptoms: At their worst the symptoms were moderate, in the emergency department the symptoms have improved. The patient has not experienced similar symptoms in the past. The patient has not recently seen a physician. Pt reports fall from standing 2 weeks ago, legs went under him, already using brace to LLE for diabetic ulcer. Reports pain in right leg still present from fall. No injury or pain at right knee or above. Denies foot or toe pain/injury.. Historical: - Allergies: 07:17 No Known Allergies; jd3 - Home Meds: 07:17 Allopurinol Oral [Active]; amlodipine oral [Active]; Bumex 1 mg Oral tab 1 tab 2 times jd3 per day [Active]; carvedilol 12.5 mg Oral tab 1 tab 2 times per day [Active]; gabapentin 800 mg Oral tab 1 tab 3 times per day [Active]; gabapentin Oral [Active]; Imdur Oral [Active]; Insulin: Regular Sub-Q [Active]; metolazone 5 mg Oral tab Q 2 days [Active]; ProAir HFA inhalation [Active]; Symbicort inhalation [Active]; - PMHx: 07:17 diabetes mellitus; Transient cerebral ischemia; Myocardial infarction; CHF; jd3 Cerebrovascular accident; CVA; - PSHx: 07:17 Heart Stents; Pacemaker/Defib; jd3 - Immunization history:: Adult Immunizations up to date, Client reports receiving the 2nd dose of the Covid vaccine, Flu vaccine is not up to date. - Social history:: Smoking status: Patient/guardian denies using tobacco, the patient reports quitting approximately 5 years ago. - Family history:: not pertinent. - Hospitalizations: : No recent hospitalization is reported. ROS: 08:01 Constitutional: Negative for fever, chills, and weight loss, Cardiovascular: Negative rn for chest pain, palpitations, and edema, Respiratory: Negative for shortness of breath, cough, wheezing, and pleuritic chest pain, MS/Extremity: + injury and pain to RLE Skin: Negative for injury, rash, and discoloration, Neuro: Negative for weakness, numbness, tingling Exam: 08:01 Constitutional: This is a well developed, well nourished patient who is awake, alert, rn and in no acute distress. Ambulatory to room with limp. Cardiovascular: Regular rate and rhythm. No pulse deficits. MS/ Extremity: No cyanosis. Equal circumference. No tenderness or painful ROM of right knee/foot/toes. + mild right proximal fibular tenderness without swelling. No open wounds. + mild painful ROM right medial and lateral malleolus tenderness. Neuro: Awake and alert, GCS 15 Vital Signs: 07:17 BP 118 / 86; Pulse 68; Resp 18 S; Temp 97.8(TE); Pulse Ox 97% on R/A; Weight 102.06 kg jd3 (R); Height 5 ft. 10 in. (177.80 cm) (R); Pain 10/10; 09:15 BP 127 / 93; Pulse 70; Resp 18 S; Pain 7/10; jg9 07:17 Body Mass Index 32.28 (102.06 kg, 177.80 cm) jd3 MDM: 07:19 Patient medically screened. rn 09:06 Differential diagnosis: closed fracture, contusion. Data reviewed: vital signs, nurses rn notes, radiologic studies, plain films, and as a result, I will discharge patient. Counseling: I had a detailed discussion with the patient and/or guardian regarding: the historical points, exam findings, and any diagnostic results supporting the discharge/admit diagnosis, radiology results, the need for outpatient follow up, to return to the emergency department if symptoms worsen or persist or if there are any questions or concerns that arise at home. Response to treatment: the patient's symptoms have mildly improved after treatment, and as a result, I will discharge patient. Special discussion: I discussed with the patient/guardian in detail that at this point there is no indication for admission to the hospital. It is understood, however, that if the symptoms persist or worsen the patient needs to return immediately for re-evaluation. Based on the history and exam findings, there is no indication for further emergent testing or inpatient evaluation. I discussed with the patient/guardian the need to see the orthopedic surgeon for further evaluation of the symptoms. 07/07 07:26 Order name: XRAY Ankle RIGHT 3 view; Complete Time: 08:54 rn 07/07 07:26 Order name: XRAY Tib Fib RIGHT; Complete Time: 08:54 rn 07/07 09:05 Order name: Knee Immobilizer; Complete Time: : rn 07/07 09:05 Order name: Crutches; Complete Time: : rn Administered Medications: 09:30 Drug: [place] (HYDROcodone-acetaminophen) 10 mg-325 mg 1 tabs Route: PO; jg9 09:35 Follow up: Response: No adverse reaction; Medication administered at discharge. jg9 Disposition Summary: 07/07/21 09:08 Discharge Ordered Location: Home rn Problem: new rn Symptoms: have improved rn Condition: Stable rn Diagnosis - Nondisplaced transverse fracture of shaft of right fibula, initial encounter for rn closed fracture - Proximal fracture Followup: rn - With: Braxton Ortega MD - When: 5 - 6 days - Reason: Recheck today's complaints, Re-evaluation by your physician Discharge Instructions: - Discharge Summary Sheet rn - Cast or Splint Care, Adult rn - Tibial and Fibular Fractures rn - Fibular Fracture Rehab-SportsMed rn Forms: - Medication Reconciliation Form rn - Thank You Letter rn - Antibiotic rn palliative - Prescription Opioid Use rn Prescriptions: - Tylenol-Codeine #3 300 mg-30 mg Oral - take 1 tablet by ORAL route every 6-8 hours As needed; 15 tablet; Refills: 0, rn Product Selection Permitted Signatures: Dispatcher [employer] Bharathi Terrazas MD MD rn Davies, Jonathon, RN RN jd3 Pari Yeung RN RN jg9
--- NOTE | 2021-07-07 09:09 | ER ---
Nurse's Notes [facility] Name: Binu Mcelroy Age: 45 yrs Sex: Male : 1975 Arrival Date: 07/07/2021 Time: 07:12 Bed 6 Private MD: Diagnosis: Nondisplaced transverse fracture of shaft of right fibula, initial encounter for closed fracture-Proximal fracture Presentation: 07/07 07:14 Chief complaint: Patient states: "2 Saturdays I slipped and tripped. my legs ended up jd3 under me. in particular my arroyo and lower leg is hurting pretty bad.". Coronavirus screen: At this time, the client does not indicate any symptoms associated with coronavirus-19. Ebola Screen: No symptoms or risks identified at this time. Initial Sepsis Screen: Does the patient meet any 2 criteria? No. Patient's initial sepsis screen is negative. Does the patient have a suspected source of infection? No. Patient's initial sepsis screen is negative. Risk Assessment: Do you want to hurt yourself or someone else? Patient reports no desire to harm self or others. Onset of symptoms was June 29, 1999. 07:14 Method Of Arrival: Ambulatory jd3 07:14 Acuity: CRISS 4 jd3 Triage Assessment: 09:32 Injury Description: Patient reports tripping and injuring his right leg. jg9 Historical: - Allergies: 07:17 No Known Allergies; jd3 - Home Meds: 07:17 Allopurinol Oral [Active]; amlodipine oral [Active]; Bumex 1 mg Oral tab 1 tab 2 times jd3 per day [Active]; carvedilol 12.5 mg Oral tab 1 tab 2 times per day [Active]; gabapentin 800 mg Oral tab 1 tab 3 times per day [Active]; gabapentin Oral [Active]; Imdur Oral [Active]; Insulin: Regular Sub-Q [Active]; metolazone 5 mg Oral tab Q 2 days [Active]; ProAir HFA inhalation [Active]; Symbicort inhalation [Active]; - PMHx: 07:17 diabetes mellitus; Transient cerebral ischemia; Myocardial infarction; CHF; jd3 Cerebrovascular accident; CVA; - PSHx: 07:17 Heart Stents; Pacemaker/Defib; jd3 - Immunization history:: Adult Immunizations up to date, Client reports receiving the 2nd dose of the Covid vaccine, Flu vaccine is not up to date. - Social history:: Smoking status: Patient/guardian denies using tobacco, the patient reports quitting approximately 5 years ago. - Family history:: not pertinent. - Hospitalizations: : No recent hospitalization is reported. Screenin:36 Abuse screen: Denies threats or abuse. Denies injuries from another. Nutritional ww screening: No deficits noted. Tuberculosis screening: No symptoms or risk factors identified. Fall Risk Fall in past 12 months (25 points). No secondary diagnosis (0 pts). No IV (0 pts). Ambulatory Aid- None/Bed Rest/Nurse Assist (0 pts). Gait- Normal/Bed Rest/Wheelchair (0 pts) Mental Status- Oriented to own ability (0 pts). Total Rudolph Fall Scale indicates Low Risk Score (25-44 pts). Fall prevention measures have been instituted. Side Rails Up X 2 Placed close to Nursing Station 1:1 attendant Assigned to Pt. Frequent Obs/Assesments occuring Family Present and informed to notify staff if they need to leave bedside As available Patient and Family Educated on Fall Prevention Program and strategies. Assessment: 07:36 General: Appears in no apparent distress. Behavior is calm, cooperative. Pain: ww Complains of pain in right arroyo and anterior aspect of right ankle. Neuro: Level of Consciousness is awake, alert, obeys commands, Oriented to person, place, time, situation, Speech is normal. Cardiovascular: Patient's skin is warm and dry. Chest pain is denied. Respiratory: Airway is patent Respiratory effort is even, unlabored, Respiratory pattern is regular, symmetrical. GI: No signs and/or symptoms were reported involving the gastrointestinal system. Derm: Skin poor prefusion in right lower extremity with discoloration to the skin. patient states he has a left diabetic foot ulcer. Musculoskeletal: Reports pain in right arroyo. Vital Signs: 07:17 BP 118 / 86; Pulse 68; Resp 18 S; Temp 97.8(TE); Pulse Ox 97% on R/A; Weight 102.06 kg jd3 (R); Height 5 ft. 10 in. (177.80 cm) (R); Pain 10/10; 09:15 BP 127 / 93; Pulse 70; Resp 18 S; Pain 7/10; jg9 07:17 Body Mass Index 32.28 (102.06 kg, 177.80 cm) jd3 ED Course: 07:12 Patient arrived in ED. kz 07:16 Triage completed. jd3 07:18 Arm band placed on. jd3 07:19 Bharathi Palmer MD is Attending Physician. rn 07:36 Anh Singer, RN is Primary Nurse. ww 07:36 Patient has correct armband on for positive identification. Bed in low position. Call ww light in reach. Side rails up X 1. NIBP on. 08:34 XRAY Ankle RIGHT 3 view In Process Unspecified. EDMS 08:34 XRAY Tib Fib RIGHT In Process Unspecified. EDMS 09:08 Braxton Ortega MD is Referral Physician. rn 09:31 Crutch training done. Knee immobilizer applied on right knee. patient tolerated jg9 procedure well, MSP's in tact pre and post immobilization. 09:32 No provider procedures requiring assistance completed. jg9 09:35 Patient did not have IV access during this emergency room visit. jg9 09:45 Awaiting ED provider evaluation, Awaiting: Patient requesting a prescription for pain jg9 medication to go home with. Administered Medications: 09:30 Drug: [place] (HYDROcodone-acetaminophen) 10 mg-325 mg 1 tabs Route: PO; jg9 09:35 Follow up: Response: No adverse reaction; Medication administered at discharge. jg9 Outcome: 09:08 Discharge ordered by . rn 09:32 Condition: stable jg9 09:33 Discharged to home via wheelchair, with crutches. jg9 09:33 Discharge instructions given to patient, Instructed on discharge instructions, follow up and referral plans. Demonstrated understanding of instructions, follow-up care, crutch walking. 10:00 Patient left the ED. jg9 Signatures: Dispatcher [employer] EDMT Bharathi Palmer MD MD rn Davies, Jonathon, RN RN jd3 Gilmore, Jennifer, RN RN jg9 Anh Singer, Neida Garnica RN
[2021-07-07] MEDS ORDERED: HYDROCODONE/APAP 10/325 TAB ONE (09:26)
[2021-07-07 10:32] VITALS: TEMP 97.8; O2SAT 97
[2021-07-07 10:33] VITALS: BP 127/93
== END 2021-07-07 10:00 | disposition home or self-care (01) ==
LOC: ER 07:08
DX: S82.424A Nondisplaced transverse fracture of shaft of right fibula, initial encounter for closed fracture (principal); W18.30XA Fall on same level, unspecified, initial encounter; E11.9 Type 2 diabetes mellitus without complications; Z79.4 Long term (current) use of insulin; I50.9 Heart failure, unspecified; Z86.73 Personal history of transient ischemic attack (TIA), and cerebral infarction without residual deficits; Z95.818 Presence of other cardiac implants and grafts; Z95.810 Presence of automatic (implantable) cardiac defibrillator
CPT/HCPCS: 99283

== ENCOUNTER 2021-07-25 23:52 | Emergency (ER) | payer OTHER ==
--- OUTSIDE RECORDS SUMMARY | 2021-07-26 01:23 | XMS REPORT | Continuity of Care Document ---
:1975 Author Organization [facility] t Address [address] [place] [address] [address]. [address] [place] [address] Care Team Providers Name Role Phone ALEXEI ENRIQUEZ Primary Care Physician Unavailable DR PATRICK Attending Clinician Unavailable LULU Attending Clinician [phone] SHELBY Attending Clinician [phone] CONTRERAS Attending Clinician Unavailable CONTRERAS Attending Clinician [phone] NURSE Attending Clinician Unavailable FRANZ Attending Clinician Unavailable OSEI Attending Clinician [phone] DR DIANE Attending Clinician Unavailable Venkatesh SCHULER, Kathleen Attending Clinician Ayden SCHULER Attending Clinician Nuvia Lugo MD Attending Clinician Jackie Nguyen MD Attending Clinician Deacon Nair MD Attending Clinician OMSTEFANI Attending Clinician Unavailable OMORI Attending Clinician [phone] IRIZARRY Attending Clinician Unavailable IRIZARRY Attending Clinician [phone] Ayden Serra MD Attending Clinician Landry SCHULER Attending Clinician Lilliam SCHULER Attending Clinician Neida Lugo MD Attending Clinician Warren Blunt MD Attending Clinician LUBNA Attending Clinician Unavailable LUBNA Attending Clinician [phone] JERRY HUMMEL Attending Clinician Unavailable AYDEN SERRA Attending Clinician Unavailable [facility] Attending Clinician Unavailable SIDDHARTHA Attending Clinician Unavailable ENRIQUE Attending Clinician [phone] JONAS Attending Clinician Unavailable MIMA MARQUIS Attending Clinician Unavailable RADHA MURGUIA Attending Clinician Unavailable KASSI KULKARNI Attending Clinician Unavailable MANAV Attending Clinician [phone] SWETHA Attending Clinician Unavailable JEFFY Attending Clinician Unavailable ISAURA Attending Clinician [phone] CANAMAR Attending Clinician Unavailable TIMA Attending Clinician [...] Effective Date Expiration Date S ource 1000 [id number] 1961 00:00:00 0165 [id number] 1961 00:00:00 [facility] - [id number] [id number] MEDICAID MEDICARE PART A [id number] 2019 \\T\\ B - MEDICARE 00:00:00 Problems [...] Hypercalce Disease Active [facility] [...] be different from the original. ICD9 DX Qc Tech Seizure Seizure Disease Active [facility] [...] Disease Active [facility] Diabetes Diabetes Disease [facility] mellitus mellitus [facility] Diabetic Diabetic Disease Active [facility] neuropathy neuropathy [facility] Hyperlipid Hyperlipid Disease Active C [facility] emia emia [facility] Carpal Carpal Disease Active [facility] tunnel tunnel [facility] - syndrome syndrome [facility] Allergies, Adverse Reactions, Alerts Allergy Allergy Status Severity Reaction(s) Onset Inactive Treating Comm ents Source Name Type Date Date Clinician NO KNOWN Allergy Active [facility] Social History Social Habit Start Date [facility]00 [facility] Alcohol Comment 2012-10-15 2012-10-15 occasionally [...] 00:00: oral route 00 every day Humalog 2021- No inject Access KwikPen 15 03-29 5-10 Units [facility]alt [facility] (U-100) 00:00: [...] 00:00: oral route 00 every day rosuvastati 2022-0 2022- No 1{table [...] 100 mg 1-05 02-15 tablet (50 M10.449, Will alth tablet 00:00: 00:00 mg) by N18.32 [...] 100 mg 1-05 02-15 tablet (50 M10.449, Will alth tablet 00:00: 00:00 mg) by N18.32 [...] 100 mg 1-05 02-15 tablet (50 M10.449, Will alth tablet 00:00: 00:00 mg) by N18.32 [...] No take 1 Acc ess 75 mg -07 28-15 tablet (75 Health tablet 00:00: 00:00 [...] 2 times every day with food rosuvastati 2020-03- No 1{table Q1D take 1 [...] M10.449, Hea lth tablet 00:00: mg) by 8.32 00 oral route every OTHER day allopurinol [...] ccess 1,250 mcg -27 le} capsule by [facility] (50,000 00:00: 00:00 oral route unit) 00 :00 every capsule week for 12 weeks Vitamin D2 2020-03- No 1{capsu Q1W take 1 A ccess 1,250 mcg -27 le} capsule by [facility] (50,000 00:00: 00:00 oral route unit) 00 :00 every capsule week for 12 weeks Vitamin D2 2020-03- No 1{capsu Q1W take 1 A ccess 1,250 mcg -27 le} capsule by [facility] (50,000 00:00: 00:00 oral route unit) 00 :00 every capsule week for 12 weeks Vitamin D2 2020-03- No 1{capsu Q1W take 1 A ccess 1,250 mcg -27 le} capsule by [facility] (50,000 00:00: 00:00 oral route unit) 00 :00 every capsule week for 12 weeks Vitamin D2 2020-03- No 1{capsu Q1W take 1 A ccess 1,250 mcg -27 le} capsule by [facility] (50,000 00:00: 00:00 oral route unit) 00 :00 every capsule week for 12 weeks Vitamin D2 2020-03- No 1{capsu Q1W take 1 A ccess 1,250 mcg -27 le} capsule by [facility] (50,000 00:00: 00:00 oral route unit) 00 :00 every capsule week for 12 weeks Vitamin D2 2020-03- No 1{capsu Q1W take 1 A ccess 1,250 mcg -27 le} capsule by [facility] (50,000 00:00: 00:00 oral route unit) 00 :00 every capsule week for 12 weeks Vitamin D2 2020-03- No 1{capsu Q1W take 1 A ccess 1,250 mcg -27 le} capsule by [facility] (50,000 00:00: 00:00 oral route unit) 00 :00 every capsule week for 12 weeks Vitamin D2 2020-03- No 1{capsu Q1W take 1 A ccess 1,250 mcg -27 le} capsule by [facility] (50,000 00:00: 00:00 oral route unit) 00 :00 every capsule week for 12 weeks Vitamin D2 2020-03- No 1{capsu Q1W take 1 A ccess 1,250 mcg -27 le} capsule by [facility] (50,000 00:00: 00:00 oral route unit) 00 :00 every capsule week for 12 weeks Vitamin D2 2020-03- No 1{capsu Q1W take 1 A ccess 1,250 mcg -27 le} capsule by [facility] (50,000 00:00: 00:00 oral route unit) 00 :00 every capsule week for 12 weeks Vitamin D2 2020-03- No 1{capsu Q1W take 1 A ccess 1,250 mcg -27 le} capsule by [facility] (50,000 00:00: 00:00 oral route unit) 00 [...] Acces s 20 mg 1-03 tablet by [employer] tablet 00:00: oral route 00 every day [...] 50 Acces s FlexTouch 1-03 unit by [employer] U-100 00:00: subcutaneo Insulin 100 00 us [...] 50 Acces s FlexTouch 1-03 unit by [employer] U-100 00:00: subcutaneo Insulin 100 00 us [...] 50 Acces s FlexTouch 1-03 unit by [employer] U-100 00:00: subcutaneo Insulin 100 00 us route 2 unit/mL (3 times mL) every day subcutaneou s pen gabapentin 2020-03 No 1{table Q8H take 1 Ac cess 800 mg 1-03 t} tablet by Health tablet 00:00: oral route 00 3 times every day Levemir 2020-03 No 50U Q12H inject 50 Acces s FlexTouch 1-03 unit by [employer] U-100 00:00: subcutaneo Insulin 100 00 us route 2 unit/mL (3 times mL) every day subcutaneou s pen Levemir 2020-03 No 50U Q12H inject 50 Acces s FlexTouch 1-03 unit by [employer] U-100 00:00: subcutaneo Insulin 100 00 us route 2 unit/mL (3 times mL) every day subcutaneou s pen Levemir 2020-03 No 50U Q12H inject 50 Acces s FlexTouch 1-03 unit by [employer] U-100 00:00: subcutaneo Insulin 100 00 us route 2 unit/mL (3 times mL) every day subcutaneou s pen Levemir 2020-03 No 50U Q12H inject 50 Acces s FlexTouch 1-03 unit by [employer] U-100 00:00: subcutaneo Insulin 100 00 us route 2 unit/mL (3 times mL) every day subcutaneou s pen Levemir 2020-03 No 50U Q12H inject 50 Acces s FlexTouch 1-03 unit by [employer] U-100 00:00: subcutaneo Insulin 100 00 us route 2 unit/mL (3 times mL) every day subcutaneou s pen Levemir 2020-03 No 50U Q12H inject 50 Acces s FlexTouch 1-03 unit by [employer] U-100 00:00: subcutaneo Insulin 100 00 us [...] :00 every day x 5 days gabapentin 20203-29- No 1{table Q8H take 1 A ccess [...] oral route 00 :00 every day cyclobenzap 1-0 No 1{table BID take 1 [...] 1,250 mcg 11-02 le} capsule by [facility] (50,000 00:00: 00:00 oral route unit) 00 :00 every capsule week for 12 weeks Vitamin D2 2020-0 2021- No 1{capsu Q1W take 1 A ccess 1,250 mcg 11-02 le} capsule by [facility] (50,000 00:00: 00:00 oral route unit) 00 :00 every capsule week for 12 weeks Vitamin D2 2020- No 1{capsu Q1W take 1 A ccess 1,250 mcg 829 le} capsule by [facility] (50,000 00:00: 00:00 oral route unit) 00 :00 every capsule week for 12 weeks Vitamin D2 2020- No 1{capsu Q1W take 1 A ccess 1,250 mcg 801-24 le} capsule by [facility] (50,000 00:00: 00:00 oral route unit) 00 :00 every capsule week for 12 weeks Vitamin D2 2020- No 1{capsu Q1W take 1 A ccess 1,250 mcg 801-24 le} capsule by [facility] (50,000 00:00: 00:00 oral route unit) 00 :00 every capsule week for 12 weeks Vitamin D2 2020- No 1{capsu Q1W take 1 A ccess 1,250 mcg 11-02 le} capsule by [facility] (50,000 00:00: 00:00 oral route unit) 00 :00 every capsule week for 12 weeks Vitamin D2 2020- No 1{capsu Q1W take 1 A ccess 1,250 mcg 11-02 le} capsule by [facility] (50,000 00:00: 00:00 oral route unit) 00 :00 every capsule week for 12 weeks Vitamin D2 2020- No 1{capsu Q1W take 1 A ccess 1,250 mcg 801-24 le} capsule by [facility] (50,000 00:00: 00:00 oral route unit) 00 :00 every capsule week for 12 weeks Vitamin D2 2020- No 1{capsu Q1W take 1 A ccess 1,250 mcg 8 10-29 le} capsule by [facility] (50,000 00:00: 00:00 oral route unit) 00 :00 every capsule week for 12 weeks Vitamin D2 2020- No 1{capsu Q1W take 1 A ccess 1,250 mcg 8-07 10-29 le} capsule by [facility] (50,000 00:00: 00:00 oral route unit) 00 :00 every capsule week for 12 weeks Vitamin D2 2020- No 1{capsu Q1W take 1 A ccess 1,250 mcg 11-02 le} capsule by [facility] (50,000 00:00: 00:00 oral route unit) 00 :00 every capsule week for 12 weeks Vitamin D2 2020- No 1{capsu Q1W take 1 A ccess 1,250 mcg 11-02 le} capsule by [facility] (50,000 00:00: 00:00 oral route unit) 00 :00 every capsule week for 12 weeks Vitamin D2 2020- No 1{capsu Q1W take 1 A ccess 1,250 mcg 11-02 le} capsule by [facility] (50,000 00:00: 00:00 oral route unit) 00 :00 every capsule week for 12 weeks Vitamin D2 2020- No 1{capsu Q1W take 1 A ccess 1,250 mcg 11-02 le} capsule by [facility] (50,000 00:00: 00:00 oral route unit) 00 :00 every capsule week for 12 weeks Vitamin D2 2020- No 1{capsu Q1W take 1 A ccess 1,250 mcg 11-02 le} capsule by [facility] (50,000 00:00: 00:00 oral route unit) 00 :00 every capsule week for 12 weeks Vitamin D2 2020- No 1{capsu Q1W take 1 A ccess 1,250 mcg 11-02 le} capsule by [facility] (50,000 00:00: 00:00 oral route unit) 00 :00 every capsule week for 12 weeks Vitamin D2 2020- No 1{capsu Q1W take 1 A ccess 1,250 mcg 11-02 le} capsule by [facility] (50,000 00:00: 00:00 oral route unit) 00 :00 every capsule week for 12 weeks Vitamin D2 2020- No 1{capsu Q1W take 1 A ccess 1,250 mcg 11-02 le} capsule by [facility] (50,000 00:00: 00:00 oral route unit) 00 :00 every capsule week for 12 weeks Vitamin D2 2020- No 1{capsu Q1W take 1 A ccess 1,250 mcg 11-02 le} capsule by [facility] (50,000 00:00: 00:00 oral route unit) 00 :00 every capsule week for 12 weeks Vitamin D2 2020- No 1{capsu Q1W take 1 A ccess 1,250 mcg 11-02 le} capsule by [facility] (50,000 00:00: 00:00 oral route unit) 00 :00 every capsule week for 12 weeks tramadol 50 No 1{table Q12H take 1 Dx: A ccess mg tablet 803 t} tablet by M79.671, H eah 00:00: [...] 5 mg tablet 8-03 tablet by [facility] 00:00: oral route 00 every day [...] gabapentin 2020- No 1{table Q8H take 1 Ac cess [...] ccess mg tablet 8-03 t} tablet by [place] [address], ealt 00:00: oral route M79.644, 00 every 12 M14.679, hours as E11.621, needed E11.40 tramadol 50 0 No 1{table Q12H take 1 Dx: A ccess mg tablet 8-03 t} tablet by [place] [address], ealt 00:00: oral route M79.644, 00 every 12 M14.679, hours as E11.621, needed E11.40 tramadol 50 0 No 1{table Q12H take 1 Dx: A ccess mg tablet 8-03 t} tablet by [place] [address], ealt 00:00: oral route M79.644, 00 every 12 M14.679, hours as E11.621, needed E11.40 tramadol 50 0 No 1{table Q12H take 1 Dx: A ccess mg tablet 8-03 t} tablet by [place] [address], ealt 00:00: oral route M79.644, 00 every 12 M14.679, hours as E11.621, needed E11.40 tramadol 50 2020-0 No 1{table Q12H take 1 Dx: A ccess mg tablet 8-03 t} tablet by [place] [address], ealth 00:00: oral route M79.644, 00 every 12 M14.679, hours as E11.621, needed E11.40 tramadol 50 0 No 1{table Q12H take 1 Dx: A ccess mg tablet 8-03 t} tablet by [place] [address], ealth 00:00: oral route M79.644, 00 every 12 M14.679, hours as E11.621, needed E11.40 tramadol 50 2020-0 2021- No 1{table Q12H take 1 Dx: Access mg tablet 8-03 02-15 t} tablet by [place] [address], [facility] 00:00: 00:00 oral route M79.644, 00 :00 every 12 M14.679, hours as E11.621, needed E11.40 tramadol 50 2021- No 1{table Q12H take 1 Dx: Access mg tablet 10-29 t} tablet by [facility], [facility] 00:00: 00:00 oral route M79.644, 00 :00 every 12 M14.679, hours as E11.621, needed E11.40 tramadol 50 2021- No 1{table Q12H take 1 Dx: Access mg tablet 10-29 t} [facility]: [facility]:00 oral route M79.644, 00 :00 every 12 M14.679, hours as E11.621, needed E11.40 tramadol 50 2021- No 1{table Q12H take 1 Dx: Access mg tablet 10-29 t} tablet by [facility], [facility] 00:00: 00:00 oral route M79.644, 00 :00 every 12 M14.679, hours as E11.621, needed E11.40 tramadol 50 2021- No 1{table Q12H take 1 Dx: Access mg tablet 10-29 t} tablet by [facility], [facility] 00:00: 00:00 oral route M79.644, 00 :00 every 12 M14.679, hours as E11.621, needed E11.40 tramadol 50 2021- No 1{table Q12H take 1 Dx: Access mg tablet 10-29 t} tablet by [facility], [facility] 00:00: 00:00 oral route M79.644, 00 :00 every 12 M14.679, hours as E11.621, needed E11.40 amlodipine 2020- No take 1 Acce ss 5 mg tablet 10-29 tablet (5 He alth 00:00: 00:00 mg) by 00 :00 oral route once daily carvedilol 2020- No 1{table Q12H take 1 A ccess 12.5 mg 10-29 t} tablet by [facility] tablet 00:00: 00:00 oral route 00 :00 [...] Humalog 2020-0 2020- No inject Access KwikPen 8- 09-14 5-10 Units Healt [facility] (U-100) 00:00: [...] Q1D take 1 A ccess 20 mg 805 t} tablet by Health tablet 00:00: 00:00 [...] by [facility]. [facility] - tablet 13:32: Medical [address] [place] [address] atorvastati Yes 80mg QD Take [address] [facility] [facility] (LIPITOR) 7-04 by mouth [facility] - 80 MG 13:32: every Medical tablet 10 evening. [place] isosorbide Yes Chronic 60mg QD Take 60 [...] mouth [facility] - tablet 13:32: daily. [address] clopidogrel Yes 75mg QD Take [address] (PLAVIX) 75 7-04 by mouth [facility] - mg tablet 13:32: daily. Medica l [address] [place] [address] bumetanide Yes 1mg Q.5D Take 1 mg [...] by mouth. [facility] - tablet 13:32: Medical [address] [place] [address] atorvastati Yes 80mg QD Take [address] [facility] (LIPITOR) 7-04 by mouth Luke [facility] - 80 MG 13:32: every Medical tablet 10 evening. [place] isosorbide 2021-0 Yes Chronic 60mg QD Take [...] mouth Luke s - tablet 13:32: daily. [address] clopidogrel Yes 75mg QD Take [address] (PLAVIX) 75 7-04 by mouth [facility] s - mg tablet 13:32: daily. Medica l [address] [place] [address] bumetanide Yes 1mg Q.5D Take 1 mg [...] mouth. [facility] - tablet 13:32: Medical [address] [place] atorvastati Yes 80mg QD Take [address] [facility] (LIPITOR) 7-04 by mouth Luke s - 80 MG 13:32: every Medical tablet 10 evening. [place] isosorbide Yes Chronic 60mg QD Take 60 [...] mouth Luke s - tablet 13:32: daily. [address] clopidogrel Yes 75mg QD Take [address] (PLAVIX) 75 7-04 by mouth [facility] s - mg tablet 13:32: daily. Medica l [address] [place] [address] bumetanide Yes 1mg Q.5D Take 1 mg [...] by mouth. [facility] - tablet 13:32: Medical [address] [place] [address] atorvastati Yes 80mg QD Take [address] [facility] (LIPITOR) 7-04 by mouth Luke s - 80 MG 13:32: every Medical tablet 10 evening. [place] isosorbide Yes Chronic 60mg QD Take 60 [...] mouth Luke s - tablet 13:32: daily. [address] clopidogrel Yes 75mg QD Take [address] (PLAVIX) 75 7-04 by mouth Luke s - mg tablet 13:32: daily. Medica l [address] [place] bumetanide Yes 1mg Q.5D Take 1 mg [...] 7-04 by mouth. [facility] - tablet 13:32: [address] atorvastati Yes 80mg QD Take [address] [facility] (LIPITOR) 7-04 by mouth Luke s - 80 MG 13:32: every Medical tablet 10 evening. [place] isosorbide Yes Chronic 60mg QD Take 60 [...] mouth Luke s - tablet 13:32: daily. [address] clopidogrel Yes 75mg QD Take 75 [...] mouth. [facility] - tablet 13:32: Medical [address] [place] atorvastati Yes 80mg QD Take [address] [facility] (LIPITOR) 7-04 by mouth Luke s - 80 MG 13:32: every Medical tablet 10 evening. [place] isosorbide Yes Chronic 60mg QD Take 60 [...] s - tablet 13:32: daily. Medical [address] [place] clopidogrel Yes 75mg QD Take [address] (PLAVIX) 75 7-04 by mouth Luke s - mg tablet 13:32: daily. Medica l [address] [place] bumetanide Yes 1mg Q.5D Take 1 mg [...] I St -acetaminop 7-04 tablet by [employer] [facility] [place] (NORCO 00:00: mouth Medica l 10-325) 00 [...] St -clavulanat -07 03- tablet by Siddhartha [facility]ce[facility] - e 00:00: 00:00 mouth Medical (AUGMENTIN) [...] 50 Acces s FlexTouch 6-22 unit by [employer] 00:00: subcutaneo Insulin 100 00 us route 2 unit/mL (3 times mL) every day subcutaneou s pen Levemir 0 No 50U Q12H inject 50 Acces s FlexTouch 6-22 unit by [employer] 00:00: subcutaneo Insulin 100 00 us route 2 unit/mL (3 times mL) every day subcutaneou s pen Levemir 0 No 50U Q12H inject 50 Acces s FlexTouch 6-22 unit by Health U-100 00:00: subcutaneo Insulin 100 00 us route 2 unit/mL (3 times mL) every day subcutaneou s pen Levemir No 50U Q12H inject 50 Acces s FlexTouch 6-22 unit by [employer] U-100 00:00: subcutaneo Insulin 100 00 us route 2 unit/mL (3 times mL) every day subcutaneou s pen Levemir 0 No 50U Q12H inject 50 Acces s FlexTouch 6-22 unit by [employer] U-100 00:00: subcutaneo Insulin 100 00 us route 2 unit/mL (3 times mL) every day subcutaneou s pen Levemir No 50U Q12H inject 50 Acces s FlexTouch 6-22 unit by [employer] [facility] 00:00: subcutaneo Insulin 100 00 us route 2 unit/mL (3 times mL) every day subcutaneou s pen Levemir No 50U Q12H inject 50 Acces s FlexTouch 6-22 unit by [employer] U-100 00:00: subcutaneo Insulin 100 00 us route 2 unit/mL (3 times mL) every day subcutaneou s pen Levemir No 50U Q12H inject 50 Acces s FlexTouch 6-22 unit by [employer] U-100 00:00: subcutaneo Insulin 100 00 us route 2 unit/mL (3 times mL) every day subcutaneou s pen Levemir 2020- No 50U Q12H inject 50 Acce ss FlexTouch 6-22 - unit by [employer] U-100 00:00: 00:00 subcutaneo Insulin 100 00 :00 us route 2 unit/mL (3 times mL) every day subcutaneou s pen Levemir 2020- No 50U Q12H inject 50 Acce ss FlexTouch 6-22 - unit by [employer] U-100 00:00: 00:00 subcutaneo Insulin 100 00 [...] 50 Acce ss FlexTouch 09-17 unit by [employer] U-100 00:00: 00:00 subcutaneo Insulin 100 00 :00 us route 2 unit/mL (3 times mL) every day subcutaneou s pen Levemir 2020- No 50U Q12H inject 50 Acce ss FlexTouch 09-17 unit by [employer] U-100 00:00: 00:00 subcutaneo Insulin 100 00 :00 us route 2 unit/mL (3 times mL) every day subcutaneou s pen Levemir 2020- No 50U Q12H inject 50 Acce ss FlexTouch 09-17 unit by [employer] U-100 00:00: 00:00 subcutaneo Insulin 100 00 :00 us route 2 unit/mL (3 times mL) every day subcutaneou s pen Levemir 2020- No 50U Q12H inject 50 Acce ss FlexTouch 09-17 unit by [employer] U-100 00:00: 00:00 subcutaneo Insulin 100 00 :00 us route 2 unit/mL (3 times mL) every day subcutaneou s pen Levemir 2020- No 50U Q12H inject 50 Acce ss FlexTouch 09-17 unit by Health U-100 00:00: 00:00 subcutaneo Insulin 100 00 :00 us route 2 unit/mL (3 times mL) every day subcutaneou s pen Levemir 2020- 50U Q12H inject 50 Acce ss FlexTouch [...] ccess mg tablet 09-17 t} tablet by [facility] 00:00: 00:00 oral route 00 [...] ccess mg tablet 09-17 t} tablet by [facility] 00:00: 00:00 oral route 00 [...] ccess mg tablet 09-17 t} tablet by [facility] 00:00: 00:00 oral route 00 :00 every day acetaminoph 2020- No 1{table Q8H take 1 Dx: Access en 300 09-17 t} tablet by Dominiqeu [facility] mg-codeine 00:00: 00:00 oral route [...] ccess mg tablet 09-17 t} tablet by [facility] 00:00: 00:00 oral route 00 [...] ccess mg tablet 09-17 t} tablet by [facility] 00:00: 00:00 oral route 00 [...] ccess mg tablet 09-17 t} tablet by [facility] 00:00: 00:00 oral route 00 [...] ccess mg tablet 09-17 t} tablet by [facility] 00:00: 00:00 oral route 00 [...] ccess mg tablet 09-17 t} tablet by [facility] 00:00: 00:00 oral route 00 [...] ccess mg tablet 09-17 t} tablet by [facility] 00:00: 00:00 oral route 00 [...] ccess mg tablet 09-17 t} tablet by [facility] 00:00: 00:00 oral route 00 [...] ccess mg tablet 09-17 t} tablet by [facility] 00:00: 00:00 oral route 00 [...] ccess mg tablet 09-17 t} tablet by [facility] 00:00: 00:00 oral route 00 :00 every day acetaminoph 2020- No 1{table Q8H take 1 Dx: Access en 300 09-17 t} tablet by 79Dominique Soria [facility] mg-codeine 00:00: 00:00 oral route [...] ccess mg tablet 09-17 t} tablet by [facility] 00:00: 00:00 oral route 00 [...] ccess mg tablet 09-17 t} tablet by [facility] 00:00: 00:00 oral route 00 [...] ccess mg tablet 09-17 t} tablet by [facility] 00:00: 00:00 oral route 00 :00 every day acetaminoph 2020- No 1{table Q8H take 1 Dx: Access en 300 09-17 t} tablet by [id number], Willa [facility] mg-codeine 00:00: 00:00 oral route M14.679, [...] ss 5 mg tablet 09-17 tablet by [facility] 00:00: 00:00 oral route 00 :00 every day Januvia 50 2020- No 1{table Q1D take 1 A ccess mg tablet 09-17 t} tablet by [facility] 00:00: 00:00 oral route 00 [...] ccess mg tablet 09-17 t} tablet by [facility] 00:00: 00:00 oral route 00 [...] 00 :00 every day Alia 50 2020-0 2020- No 1{table Q1D take 1 [...] mg tablet 5-24 06-22 t} tablet by [facility] 00:00: 00:00 oral route 00 :00 every day Januvia 100 2021-0 2021- No 1{table Q1D take 1 Access mg tablet 5-24 06-22 t} tablet by [facility] 00:00: 00:00 oral route 00 :00 every day Januvia 100 2021-0 2021- No 1{table Q1D take 1 Access mg tablet 5-24 06-22 t} tablet by [facility] 00:00: 00:00 oral route 00 :00 every day Januvia 100 2021-0 2021- No 1{table Q1D take 1 Access mg tablet 5-24 06-22 t} tablet by [facility] 00:00: 00:00 oral route 00 :00 every day Januvia 100 2021-0 2021- No 1{table Q1D take 1 Access mg tablet 5-24 06-22 t} tablet by [facility] 00:00: 00:00 oral route 00 :00 every day Januvia 100 2021-0 2021- No 1{table Q1D take 1 Access mg tablet 5-24 06-22 t} tablet by [facility] 00:00: 00:00 oral route 00 :00 every day Januvia 100 2021-0 2021- No 1{table Q1D take 1 Access mg tablet 5-24 06-22 t} tablet by [facility] 00:00: 00:00 oral route 00 :00 every day Januvia 100 2020-0 2021- No 1{table Q1D take 1 Access mg tablet 5-24 06-22 t} tablet by [facility] 00:00: 00:00 oral route 00 :00 every day Januvia 100 2020-0 2021- No 1{table Q1D take 1 Access mg tablet 5-24 06-22 t} tablet by [facility] 00:00: 00:00 oral route 00 :00 every day Januvia 100 2020-0 2021- No 1{table Q1D take 1 Access mg tablet 5-24 06-22 t} tablet by [facility] 00:00: 00:00 oral route 00 :00 every day Januvia 100 2020-0 2021- No 1{table Q1D take 1 Access mg tablet 5-24 06-22 t} tablet by [facility] 00:00: 00:00 oral route 00 :00 every day Januvia 100 2020-0 2021- No 1{table Q1D take 1 Access mg tablet 5-24 06-22 t} tablet by [facility] 00:00: 00:00 oral route 00 :00 every day Januvia 100 2020-0 2021- No 1{table Q1D take 1 Access mg tablet 5-24 06-22 t} tablet by [facility] 00:00: 00:00 oral route 00 :00 every day Januvia 100 2020-0 2021- No 1{table Q1D take 1 Access mg tablet 5-24 06-22 t} tablet by [facility] 00:00: 00:00 oral route 00 :00 every day Januvia 100 2020-0 2021- No 1{table Q1D take 1 Access mg tablet 5-24 06-22 t} tablet by [facility] 00:00: 00:00 oral route 00 :00 every day Januvia 100 2020-0 2021- No 1{table Q1D take 1 Access mg tablet 5-24 06-22 t} tablet by [facility] 00:00: 00:00 oral route 00 :00 every day Januvia 100 2020-0 2021- No 1{table Q1D take 1 Access mg tablet 5-24 06-22 t} tablet by [facility] 00:00: 00:00 oral route 00 :00 every day Alia 100 2020-0 2021- No 1{table Q1D take 1 Access mg tablet 5-24 06-22 t} tablet by [facility] 00:00: 00:00 oral route 00 :00 every day Joseia 100 2020-0 2021- No 1{table Q1D take 1 Access mg tablet 5-24 -22 t} tablet by [facility] 00:00: 00:00 oral route 00 :00 every day Joseia 100 2020-0 202- No 1{table Q1D take 1 Access mg tablet 5-24 -22 t} tablet by [facility] 00:00: 00:00 oral route 00 [...] day to cleansed affected area isosorbide 2020-0 202- No take 1 Acce [facility] mononitrate 5-20 [...] take 1 Acce ss 1 mg tablet 08-15- tablet (1 [facility] 00:00: 00:00 mg) [...] No take 1 Acce ss 25 mg -15 11- tablet (25 Health tablet 00:00: 00:00 mg) by 00 :00 oral route 2 times per day with food bumetanide 2020- No take 1 Acce ss 1 mg tablet 08-15- tablet (1 [facility] 00:00: 00:00 mg) [...] take 1 Acce ss 1 mg tablet 08-15- tablet (1 [facility] 00:00: 00:00 mg) [...] No take 1 Acce ss 25 mg -15 11- tablet (25 Health tablet 00:00: 00:00 mg) by 00 :00 oral route 2 times per day with food bumetanide 2020- No take 1 Acce ss 1 mg tablet 08-15- tablet (1 [facility]th 00:00: 00:00 mg) [...] 100U Q1D inject 100 Acc ess FlexTouch -20 06-22 unit by [employer] U-100 00:00: 00:00 subcutaneo Insulin 100 00 :00 us route unit/mL (3 every day mL) [facility] pen metolazone 2020- No 1{table Q2D [...] Acc ess FlexTouch 5-20 06-22 unit by [facility] 00:00: 00:00 subcutaneo Insulin 100 00 :00 us route unit/mL (3 every day mL) [facility] metolazone 2020- No 1{table Q2D take 1 A ccess 5 mg tablet 5-20 06-22 t} tablet by [facility] 00:00: 00:00 oral route 00 :00 every 2 days lisinopril 2020-0 2020- No 1{table Q1D take 1 A ccess 20 mg 5-20 06-22 t} tablet by [employer] tablet 00:00: 00:00 oral route 00 :00 every day Levemir 2020-0 2020- No 100U Q1D inject 100 Acc ess FlexTouch 5-20 06-22 unit by [employer] [facility] 00:00: 00:00 subcutaneo Insulin 100 00 :00 us route unit/mL (3 every day mL) [facility] metolazone 2020- No 1{table Q2D take 1 [...] Acc ess FlexTouch 5-20 06-22 unit by [facility] 00:00: 00:00 subcutaneo Insulin 100 00 :00 us route unit/mL (3 every day mL[facility]-2020- No 1{table Q2D take 1 A ccess 5 mg tablet 5-20 06-22 t} tablet by [facility] 00:00: 00:00 oral route 00 :00 every 2 days lisinopril 2020-0 2020- No 1{table Q1D take 1 A ccess 20 mg 5-20 06-22 t} tablet by [employer] tablet 00:00: 00:00 oral route 00 :00 every day Levemir 2020-0 2020- No 100U Q1D inject 100 Acc ess FlexTouch 5-20 06-22 unit by [facility] 00:00: 00:00 subcutaneo Insulin 100 00 :00 us route unit/mL (3 every day [facility]- No 1{table Q2D take 1 A ccess 5 mg tablet 5-20 06-22 t} tablet by [facility] 00:00: 00:00 oral route 00 :00 every 2 days lisinopril 2020-0 2020- No 1{table Q1D take 1 A ccess 20 mg 5-20 06-22 t} tablet by [employer] tablet 00:00: 00:00 oral route 00 :00 every day Levemir 2020-0 1- No 100U Q1D inject 100 Acc ess FlexTouch 5-20 06-22 unit by [facility] 00:00: 00:00 subcutaneo Insulin 100 00 :00 us route unit/mL (3 every day mL) [facility] pen metolazone 2020-0 2020- No 1{table Q2D [...] Acc ess FlexTouch 5-20 06-22 unit by [employer] [facility] 00:00: 00:00 subcutaneo Insulin 100 00 :00 [...] Acc ess FlexTouch 5-20 06-22 unit by [facility] 00:00: 00:00 subcutaneo Insulin 100 00 :00 [...] Acc ess FlexTouch 5-20 06-22 unit by [facility] 00:00: 00:00 subcutaneo Insulin 100 00 :00 [...] Acc ess FlexTouch 5-20 06-22 unit by [employer] [facility] 00:00: 00:00 subcutaneo Insulin 100 00 :00 [...] Acc ess FlexTouch 5-20 06-22 unit by [facility] 00:00: 00:00 subcutaneo Insulin 100 00 :00 us route unit/mL (3 every day mL) [facility]-2020- No 1{table [...] Acc ess FlexTouch 5-20 06-22 unit by [facility] 00:00: 00:00 subcutaneo Insulin 100 00 :00 [...] Acc ess FlexTouch 5-20 06-22 unit by [employer] U-100 00:00: 00:00 subcutaneo Insulin 100 00 [...] Acc ess FlexTouch 5-20 06-22 unit by [facility] 00:00: 00:00 subcutaneo Insulin 100 00 :00 us route unit/mL (3 every day mL) subcutaneou s pen metolazone 2020- No 1{table Q2D take 1 A ccess 5 mg tablet 5-20 06-22 t} tablet by [facility] 00:00: 00:00 oral route 00 :00 every 2 days Levemir 2020-0 2020- No 100U Q1D inject 100 Acc ess FlexTouch 5-20 06-22 unit by [facility] 00:00: 00:00 subcutaneo Insulin 100 00 :00 [...] Acc ess FlexTouch 5-20 06-22 unit by [employer] [facility] 00:00: 00:00 subcutaneo Insulin 100 00 :00 us route unit/mL (3 every day mL) [facility]-2020- No 1{table Q2D take 1 A ccess 5 mg tablet 5-20 06-22 t} tablet by [facility] 00:00: 00:00 oral route 00 :00 every 2 days lisinopril 2020-0 2020- No 1{table Q1D take 1 A ccess 20 mg 5-20 06-22 t} tablet by [employer] tablet 00:00: 00:00 oral route 00 :00 every day Levemir 2020-0 1- No 100U Q1D inject 100 Acc ess FlexTouch 5-20 06-22 unit by [facility] 00:00: 00:00 subcutaneo Insulin 100 00 :00 us route unit/mL (3 every day mL) [facility] 2020- No 1{table Q2D take 1 A ccess 5 mg tablet 5-20 06-22 t} tablet by [facility] 00:00: 00:00 oral route 00 :00 every 2 days lisinopril 2020-0 2020- No 1{table Q1D take 1 A ccess 20 mg 5-20 06-22 t} tablet by [employer] tablet 00:00: 00:00 oral route 00 :00 every day Levemir 2020-0 2020- No 100U Q1D inject 100 Acc ess FlexTouch 5-20 06-22 unit by [facility] 00:00: 00:00 subcutaneo Insulin 100 00 :00 us route unit/mL (3 every day mL) [facility] 2020-0 2020- No [...] Acc ess FlexTouch 5-20 06-22 unit by [employer] U-100 00:00: 00:00 subcutaneo Insulin 100 00 [...] Acc ess FlexTouch 5-20 06-22 unit by [employer] U-100 00:00: 00:00 subcutaneo Insulin 100 00 :00 us route unit/mL (3 every day mL) subcutaneou s pen metolazone 2020- No 1{table Q2D take 1 A ccess 5 mg tablet 5-20 06-22 t} tablet by alth 00:00: 00:00 oral route 00 :00 every 2 days lisinopril 2020-2020- No 1{table Q1D take 1 A ccess 20 mg 5-20 06-22 t} tablet by [facility] tablet 00:00: 00:00 oral route 00 :00 every day Levemir 2020- No inject 50 Acce ss FlexTouch 5-20 05-20 Units by [employer] U-100 00:00: 00:00 Subcutaneo Insulin 100 00 :00 us route 2 unit/mL (3 times per mL) day in the subcutaneou morning s pen and evening Levemir 2020- No inject 50 Acce ss FlexTouch 5-20 05-20 Units by [facility] U-100 00:00: 00:00 Subcutaneo Insulin 100 [...] morning Humalog 2020- No inject Access KwikPen 4-08 05-20 5-10 Units [facility]alt [facility] (U-100) 00:00: [...] per mL) day in the [facility] morning s pen and evening metolazone 2020- [...] take 1 Acce ss 5 mg tablet 4- 05-20 tablet (5 [facility]th 00:00: 00:00 [...] 2020- No take 1 Acce ss mononitrate - 05-20 tablet (60 H ealth ER 60 [...] 00:00 mouth Medical tablet 05 :00 daily. [place] amLODIPine 2020- No 5mg QD Take 5 [...] 00:00 mouth Medical tablet 05 :00 daily. [place] amLODIPine 2020- No 5mg QD Take 5 [...] 00:00 mouth Medical tablet 05 :00 daily. [place] amLODIPine 2020- No 5mg QD Take 5 [...] 00:00 mouth Medical tablet 05 :00 daily. [place] amLODIPine 2020- No 5mg QD Take 5 [...] St -acetaminop 04-06 tablet by S[facility]hartha [facility]berts[facility] ([place] 00:00: 00:00 mouth Medic al 5-325) 00 [...] St -acetaminop 04-06 tablet by S[facility]hartha [facility]ts[facility] ([place] 00:00: 00:00 mouth Medic al 5-325) 00 :00 every 6 Center 5-325 mg (six) per tablet hours as needed for Pain. Max Daily Amount: 4 tablets HYDROcodone 2020- No 1{tbl} Take [address] -acetaminop 04-06 tablet by S[facility]hartha robertson ([place] 00:00: 00:00 mouth Medic al 5-325) 00 :00 every 6 Center 5-325 mg (six) per tablet hours as needed for Pain. Max Daily Amount: 4 tablets HYDROcodone 2020- No 1{tbl} Take [address] -acetaminop 04-06 tablet by Siddhartha robertson ([place] 00:00: 00:00 mouth Medic al 5-325) 00 :00 every 6 Center 5-325 mg (six) per tablet hours as needed for Pain. Max Daily Amount: 4 tablets HYDROcodone 2020- No 1{tbl} Take [address] -acetaminop 04-06 tablet by Siddhartha robertson ([place] 00:00: 00:00 mouth Medic al 5-325) 00 [...] Amount: 200 mg clindamycin 2019-03- No 300mg Q.[id number] Take [address] [facility] (CLEOCIN) 05-21- [id number] [facility] - 300 MG 00:00: 23:59 3D (300 mg Medical capsule 00 :00 total) by Center mouth 3 (three) times daily for 7 days. clindamycin 2019-03- No 300mg Q.[id number] Take [address] [facility] (CLEOCIN) 05-21- [id number] [facility] - 300 MG 00:00: 23:59 3D (300 mg Medical capsule 00 :00 total) by Center mouth 3 (three) times daily for 7 days. clindamycin 2019-03- No 300mg Q.[id number] Take [address] [facility] (CLEOCIN) 05-21 [id number] [facility] - 300 MG 00:00: 23:59 3D (300 mg Medical capsule 00 :00 total) by Center mouth 3 (three) times daily for 7 days. clindamycin 2019-03- No 300mg Q.[id number] Take [address] [facility] (CLEOCIN) 05-21 [id number] [facility] - 300 MG 00:00: 23:59 3D (300 mg Medical capsule 00 :00 total) by Center mouth 3 (three) times daily for 7 days. clindamycin 2019-03- No 300mg Q.[id number] Take [address] [facility] (CLEOCIN) 05-21 [id number] [facility] - 300 MG 00:00: 23:59 3D (300 mg Medical capsule 00 :00 total) by Center mouth 3 (three) times daily for 7 days. clindamycin 2019-03- No 300mg Q.[id number] Take [address] [facility] (CLEOCIN) 05-21 [id number] capsule [facility] - 300 MG 00:00: 23:59 3D (300 mg Medical capsule 00 :00 total) by Center mouth 3 (three) times daily for 7 days. clindamycin 2019-03- No 300mg Q.[id number] Take [address] [facility] (CLEOCIN) 05-21 [id number] [facility] - 300 MG 00:00: 23:59 3D (300 mg Medical capsule 00 :00 total) by Center mouth 3 (three) times daily for 7 days. gabapentin 2019-03 Yes Take by [facility] (NEURONTIN) 2- mouth. [facility] - 800 MG 00:00: Medical tablet 00 [place] lisinopriL 2019-03 Yes take 1 [facility] ([facility] 2-09 tablet (40 Siddhartha kes - ESTRIL) 40 00:00: mg) by Medic al MG tablet 00 oral route Cent er once daily gabapentin 2019-03 Yes Take by [facility] (NEURONTIN) 2-09 mouth. [facility] - 800 MG 00:00: Medical tablet 00 [place] lisinopriL 2019-03 Yes take 1 [facility] ([facility]INIV[facility],Z 2-09 tablet (40 Siddhartha kes - ESTRIL) 40 00:00: mg) by Medic al MG tablet 00 oral route Cent er once daily gabapentin 2019-03 Yes Take by [facility] (NEURONTIN) 2-09 mouth. [facility] - 800 MG 00:00: Medical tablet 00 [place] lisinopriL 2019-03 Yes take 1 [facility] (PRINIVIL,Z 2-09 tablet (40 Siddhartha kes - ESTRIL) 40 00:00: mg) by Medic al MG tablet 00 oral route Cent er once daily gabapentin 2019-03 Yes Take by [facility] (NEURONTIN) 2-09 mouth. [facility] - 800 MG 00:00: Medical tablet 00 [place] lisinopriL 2019-03 Yes take 1 [facility] ([facility]INIVIL,Z 2-09 tablet (40 Siddhartha kes - ESTRIL) 40 00:00: mg) by Medic al MG tablet 00 oral route Cent er once daily gabapentin 2019-03 Yes Take by [facility] (NEURONTIN) 2-09 mouth. [facility] - 800 MG 00:00: Medical tablet 00 [place] lisinopriL 2019-03 Yes take 1 [facility] (PRINIVIL,Z 2-09 tablet (40 Siddhartha kes - ESTRIL) 40 00:00: mg) by Medic al MG tablet 00 oral route Cent er once daily gabapentin 2019-03 Yes Take by [facility] (NEURONTIN) 2-09 mouth. [facility] - 800 MG 00:00: Medical tablet 00 [place] lisinopriL 2019-03 Yes take 1 [facility] (PRINIVIL,Z 2-09 tablet (40 Siddhartha kes - ESTRIL) 40 00:00: mg) by Medic al MG tablet 00 oral route Cent er once daily gabapentin 2019-03 Yes Take by [facility] (NEURONTIN) 2-09 mouth. [facility] - 800 MG 00:00: Medical tablet 00 [place] lisinopriL 2019-03 Yes take 1 [facility] [...] for 3 Heal th U-100 00:00: 00:00 [facility] Insulin 100 00 :00 us route 2 supply unit/mL (3 times per mL) day in the [facility] morning s pen and evening carvedilol 2019-03- No take 1 Acce ss 25 mg 05-07 tablet (25 Health tablet 00:00: 00:00 mg) by 00 :00 oral route 2 times per day with food clopidogrel 2019-03 No take 1 Acc ess 75 mg 05-07 tablet (75 Health tablet 00:00: 00:00 mg) by 00 :00 oral route once daily amlodipine 2019-03- No take 1 [...] for 3 Heal th U-100 00:00: 00:00 [facility] :00 us route [...] 50 [facility] 11-[facility] 00:00 Subcutaneo Insulin 100 00 :00 us route 2 unit/mL (3 times per mL) [facility] and evening lisinopril [...] 2019- take 1 Acc ess 75 mg 11-08 [...] 50 Acce ss FlexTouch 11-08 [facility]: 00:00 Subcutaneo Insulin 100 00 :00 us route 2 unit/mL (3 times per mL) [facility] evening lisinopril [...] 50 [facility]ce ss FlexTouch 11-08 [facility]: 00:00 Subcutaneo Insulin 100 [...] :00 oral route once daily amlodipine 2019- take 1 Acce ss 5 [...] 50 [facility] FlexTouch 11-08 [facility]: 00:00 Subcutaneo Insulin 100 [...] 2019-2019- No inject 50 Acce ss FlexTouch 07-03-13 [...] 2019- No inject 50 Acce ss FlexTouch 07-03- [...] release 24 in the hr morning clopidogrel 2020-0 2020- No take 1 Acc [...] times a day before meals Humalog 2019- No inject Access KwikPen 07-02 [...] take 1 Acce ss 1 mg tablet 07-0202 tablet (1 He alth 00:00: 00:00 mg) [...] oral route 2 times per day Levemir 2019- No inject 34 Acce ss FlexTouch 07-02 04-07 [facility]: 00:00 Subcutaneo Insulin 100 00 [...] 1 d/c lasix Access 1 mg tablet 2- 04-06 tablet (1 [facility] alth 00:00: 00:00 mg) by 00 :00 oral route 2 times per day bumetanide 2019- No take 1 d/c lasix Access 1 mg tablet 2-01 30-06 tablet (1 [facility]th 00:00: 00:00 mg) [...] 1 d/c lasix Access 1 mg tablet 2-01 30-06 tablet (1 [facility]th 00:00: 00:00 mg) by 00 :00 oral route 2 times per day bumetanide 2019-2019- No take 1 d/c lasix Access 1 mg tablet 2-01 30-06 tablet (1 [facility]th 00:00: 00:00 mg) [...] clopidogrel take 1 Acc ess 75 mg 1-07 04-06 tablet (75 Health tablet 00:00: 00:00 mg) [...] (3 times per mL) [facility] evening Humalog inject [...] 00 :00 1 time per day metolazone No take 1 Acce [...] No take 1 Acce ss 25 mg 1-07 [...] Q12H take 1 A ccess 40 mg 04-0411 t} tablet by Health tablet 00:00: 00:00 [...] 34 Acce ss FlexTouch 07-26 [facility] 00:00: 00:00 Subcutaneo Insulin 100 [...] 34 Acce ss FlexTouch 07-26 [facility] 00:00: 00:00 Subcutaneo Insulin 100 [...] (3 times per mL) [facility] [...] ss mg tablet 07-26 tablets by [facility] 00:00: 00:00 Oral route 00 :00 [...] 34 Acce ss FlexTouch 07-26 [facility] 00:00: 00:00 Subcutaneo Insulin 100 [...] Acce ss mg tablet 07-26 tablets by [facility] 00:00: 00:00 Oral route 00 :00 1 time per day 1-3 hours before bedtime for restless legs Requip 0.5 take 2 Acce ss mg tablet 07-26 tablets by [facility] 00:00: 00:00 Oral route 00 :00 1 [...] 34 Acce ss FlexTouch 07-26 [facility] 00:00: 00:00 Subcutaneo Insulin 100 00 :00 us route 2 unit/mL (3 times per mL) day in the subcutaneou morning s pen and evening isosorbide 2019- No take 1 Acce ss [...] 34 Acce ss FlexTouch 07-26 [facility] 00:00: 00:00 Subcutaneo Insulin 100 [...] Acce ss mg tablet 07-26 tablets by [facility] 00:00: 00:00 Oral route 00 :00 1 [...] Acces s chloride ER t} tablet by [facility] 10 mEq oral route tablet,exte every day nded with food release potassium No 1{table Q1D take 1 Acces s chloride ER t} tablet by [facility] 10 mEq oral route tablet,exte every day [...] Administered Flu Health vaccine without any complications. [facility] 03/06/2020 ; Source: New Immunization Record Flu (split) (2020-03-06 Completed Note: Access or older) 00:00:00 Administered Flu Health vaccine without any complications. [facility] 03/06/2020 ; Source: New Immunization Record Flu (split) (2020-03-06 Completed Note: Access or older) 00:00:00 Administered Flu Health vaccine without any complications. [facility] 03/06/2020 ; Source: New Immunization Record Flu (split) (2020-03-06 Completed Note: Access or older) 00:00:00 Administered Flu Health vaccine without any complications. [facility] 03/06/2020 ; Source: New Immunization Record Flu (split) (2020-03-06 Completed Note: Access or older) 00:00:00 Administered Flu Health vaccine without any complications. [facility] 03/06/2020 ; Source: New Immunization Record Flu (split) (2020-03-06 Completed Note: Access or older) 00:00:00 Administered Flu Health vaccine without any complications. [facility] 03/06/2020 ; Source: New Immunization Record Flu (split) (2020-03-06 Completed Note: Access or older) 00:00:00 Administered Flu Health vaccine without any complications. [facility] 03/06/2020 ; Source: New Immunization Record Flu (split) (2020-03-06 Completed Note: Access or older) 00:00:00 Administered Flu Health vaccine without any complications. [facility] 03/06/2020 ; Source: New Immunization Record Flu (split) (2020-03-06 Completed Note: Access or older) 00:00:00 Administered Flu Health vaccine without any complications. [facility] 03/06/2020 ; Source: New Immunization Record Flu (split) (2020-03-06 Completed Note: Access or older) 00:00:00 Administered Flu Health vaccine without any complications. [facility] 03/06/2020 ; Source: New Immunization Record Flu (split) (2020-03-06 Completed Note: Access or older) 00:00:00 Administered Flu Health vaccine without any complications. [facility] 03/06/2020 ; Source: New Immunization Record Flu (split) (2020-03-06 Completed Note: Access or older) 00:00:00 Administered Flu Health vaccine without any complications. [facility] 03/06/2020 ; Source: New Immunization Record Flu (split) (2020-03-06 Completed Note: Access or older) 00:00:00 Administered Flu Health vaccine without any complications. [facility] 03/06/2020 ; Source: New Immunization Record Flu (split) (2020-03-06 Completed Note: Access or older) 00:00:00 Administered Flu Health vaccine without any complications. [facility] 03/06/2020 ; Source: New Immunization Record Flu (split) (2020-03-06 Completed Note: Access or older) 00:00:00 Administered Flu Health vaccine without any complications. [facility] 03/06/2020 ; Source: New Immunization Record Flu (split) (2020-03-06 Completed Note: Access or older) 00:00:00 Administered Flu Health vaccine without any complications. [facility] 03/06/2020 ; Source: New Immunization Record Flu (split) (2020-03-06 Completed Note: Access or older) 00:00:00 Administered Flu Health vaccine without any complications. [facility] 03/06/2020 ; Source: New Immunization Record Flu (split) (2020-03-06 Completed Note: Access or older) 00:00:00 Administered Flu Health vaccine without any complications. [facility] 03/06/2020 ; Source: New Immunization Record Flu (split) (2020-03-06 Completed Note: Access or older) 00:00:00 Administered Flu Health vaccine without any complications. [facility] 03/06/2020 ; Source: New Immunization Record Flu (split) (2020-03-06 Completed Note: Access or older) 00:00:00 Administered Flu Health vaccine without any complications. [facility] 03/06/2020 ; Source: New Immunization Record Flu (split) (2020-03-06 Completed Note: Access or older) 00:00:00 Administered Flu Health vaccine without any complications. [facility] 03/06/2020 ; Source: New Immunization Record Flu (split) (2020-03-06 Completed Note: Access or older) 00:00:00 Administered Flu Health vaccine without any complications. [facility] 03/06/2020 ; Source: New Immunization Record Flu (split) (3 yrs 2020-03-06 Completed Note: Access or older) 00:00:00 Administered Flu Health vaccine without any complications. [facility] 03/06/2020 ; Source: New Immunization Record Flu (split) (3 yrs 2020-03-06 Completed Note: Access or older) 00:00:00 Administered Flu Health vaccine without any complications. [facility] 03/06/2020 ; Source: New Immunization Record Flu (split) (3 2020-03-06 Completed Note: Access or older) 00:00:00 Administered Flu Health vaccine without any complications. [facility] 03/06/2020 ; Source: New Immunization Record Flu (split) (3 2020-03-06 Completed Note: Access or older) 00:00:00 Administered Flu Health vaccine without any complications. [facility] 03/06/2020 ; Source: New Immunization Record Influenza [...] [facility] 5[facility]R 00:00:00 - [facility] Influenza 2017-03-[address] [facility]-T[facility] PF 5+ YR 00:00:00 - [facility] Influenza 2017-03-[address] [facility] Three-TIV PF 5+ YR 00:00:00 - [facility] Influenza 2017-03-[address] [facility] Three-TIV PF 5+ YR 00:00:00 - [facility] Influenza 2017-03-[address] [facility] Three-TIV PF 5+ YR 00:00:00 - [facility] Influenza 2017-03-[address] [facility] Three-TIV PF 5+ YR 00:00:00 - [facility] Influenza 2017-03-[address] [facility] Three-TIV PF 5+ YR 00:00:00 - [facility] Vital Signs Vital Name Observation Time [...] height 2021-01-29 09:34:00 172.72 cm [facility] Patient Body Weight 2021-01-29 09:34:00 112.672 kg [...] Health Heart rate 2020-09-29 08:55:00 76 /min [facility] Respiratory rate 2020-09-29 08:55:00 18 /min [facility] Oxygen saturation in 2020-09-29 08:55:00 97 /min [facility] - Arterial blood by Medical Ce nter Pulse oximetry Systolic blood 2020-09-29 04:00:00 134 mm[Hg] [facility] Diastolic blood 2020-09-29 04:00:00 76 mm[Hg] [facility] Body temperature 2020-09-29 04:00:00 37 [facility] Body weight 2020-09-23 13:36:00 125.646 kg [facility] BMI 2020-09-23 13:36:00 39.75 kg/m2 [facility] Body height 2020-09-22 14:00:00 177.8 cm [facility] Body height 2020-09-17 10:27:00 172.72 cm Access [facility] Patient Body Weight 2020-09-17 10:27:00 129.365 kg [facility] Systolic 2020-09-17 10:27:00 122 mm[Hg] [facility] 2020-09-17 10:27:00 71 mm[Hg] [facility] Diastolic Heart Beat 2020-09-17 10:27:00 82 /min [facility] Body Temperature 2020-09-17 10:27:00 36.56 Bernarda [facility] Respiratory Rate 2020-09-17 10:27:00 18 [facility] Body mass index 2020-09-17 10:27:00 43.36 kg/m2 [facility] Body height 2020-08-15 15:21:00 172.72 cm [facility] Patient Body Weight 2020-08-15 15:21:00 122.016 kg [facility] Systolic 2020-08-15 15:21:00 165 mm[Hg] [facility] 2020-08-15 15:21:00 97 mm[Hg] [facility] Diastolic Heart Beat 2020-08-15 15:21:00 86 /min [facility] Body Temperature 2020-08-15 15:21:00 36.28 Bernarda [...] Beat 2018-03-30 13:09:00 74 /min [facility] Body Temperature 2018-03-30 13:09:00 97.60 [degF] [facility] Respiratory Rate 2018-03-30 13:09:00 18 /min [facility] Body mass index 2018-03-30 13:09:00 39.70 [...] [facility] 2015-05-03 15:36:00 100 mm[Hg] [facility] Diastolic Heart Beat 2015-05-03 15:36:00 75 /min [facility] Body Temperature 2015-05-03 15:36:00 97.90 [degF] [facility] Respiratory Rate 2015-05-03 15:36:00 20 /min [facility] Body mass index 2015-05-03 15:36:00 37.20 kg/m2 [facility] Health Procedures Procedure Date / Time Performing Clinician Source Performed FOLLOW-UP 2021-05-20 00:00:00 [facility] PH[facility] CALL TO 2021-05-20 00:00:00 [facility] SHORT TERM- SCREENED, 2021-05-20 00:00:00 [facility] REFUSED PHONE CALL TO 2021-05-16 00:00:00 [facility] SHORT TERM - SCREENED - 2021-05-15 00:00:00 [facility] QUALIFIED PHONE CALL TO 2021-05-15 00:00:00 [facility] SHORT TERM - SCREENED - 2021-05-14 00:00:00 [facility] [employer] QUALIFIED SHORT TERM - COOR/HUGO 2021-05-14 00:00:00 [facility] [employer] SHORT TERM PATIENT AT ER 2021-05-14 00:00:00 [facility] [employer] SINCE LAST VISIT GLUCOSE BLOOD TEST 2021-05-13 00:00:00 [facility] OFFICE/OUTPATIENT VISIT 2021-05-13 00:00:00 [facility] EST OFFICE/OUTPATIENT VISIT 2021-01-29 00:00[facility] EST COMPREHEN METABOLIC PANEL 2021-01-29 00:00:00 [facility] URINALYSIS AUTO W/SCOPE 2021-01-29 00:00:00 [facility] UR ALBUMIN QUANTITATIVE 2021-01-29 00:00:00 [facility] GLYCOSYLATED HEMOGLOBIN 2021-01-29 00:00:00 [facility] TEST VITAMIN D 25 HYDROXY 2021-01-29 00:00:00 [facility] ASSAY OF NATRIURETIC 2021-01-29 00:00:00 [facility] PEPTIDE ASSAY OF BLOOD/URIC ACID 2021-01-29 00:00:00 [facility] ASSAY OF PHOSPHORUS 2021-01-29 00:00:00 [facility] RBC SED RATE AUTOMATED 2021-01-29 [facility] MAGNESIUM 2021-01-29 00:00:00 [facility] C-REACTIVE PROTEIN 2021-01-29 00:00:00 [facility] GLUCOSE BLOOD TEST 2020-12-03 00:00:00 [facility] OFFICE/OUTPATIENT VISIT 2020-12-03 00:00:00 [facility] EST Insulin injection 2020-12-03 00:00:00 [facility] THER/PROPH/DIAG INJ SC/IM 2020-12-03 00:00:00 [facility] COMPREHEN METABOLIC PANEL 2020-12-03 00:00:00 [facility] ASSAY OF NATRIURETIC 2020-12-03 00:00:00 [facility] PEPTIDE ASSAY OF PHOSPHORUS 2020-12-03 00:00:00 [facility] GLUCOSE BLOOD TEST 2020-10-29 00:00:00 [facility] OFFICE/OUTPATIENT VISIT 2020-10-29 00:00[facility] EST COMPLETE CBC W/AUTO DIFF 2020-10-29 00:00:00 Acc [facility] WBC COMPREHEN METABOLIC PANEL 2020-10-29 00:00:00 Ac [facility] [employer] URINALYSIS AUTO W/SCOPE 2020-10-29 00:00:00 [facility] LIPID PANEL 2020-10-29 00:00:00 [facility] GLYCOSYLATED HEMOGLOBIN 2020-10-29 00:00:00 [facility] TEST VITAMIN D 25 HYDROXY 2020-10-29 00:00:00 [facility] ASSAY OF NATRIURETIC 2020-10-29 00:00:00 [facility] PEPTIDE ASSAY OF MAGNESIUM 2020-10-29 00:00:00 [facility] ASSAY OF PARATHORMONE 2020-10-29 00:00:00 [facility] HAND, MINIMUM THREE VIEWS, 2020-10-29 00:00:00 A [facility] RADIOLOGIC EXAM CBC W/PLT COUNT & AUTO 2020-09-29 04:29:00 Hensley, Gretchen [facility] BASIC METABOLIC PANEL (7) 2020-09-29 04:29:00 Ayden Gretchen MARROQUIN I [facility] MAGNESIUM 2020-09-29 04:29:00 [facility] W/[facility] & AUTO 2020-09-29 04:29:00 Ayden Gretchen [facility] POCT-GLUCOSE METER 2020-09-28 17:27:00 Shieh [facility] POCT-GLUCOSE METER 2020-09-28 12:49:00 Shieh, [facility] POCT-GLUCOSE METER 2020-09-28 05:58:00 Shieh, [facility] CBC W/PLT COUNT & AUTO 2020-09-28 04:49:00 Gretchen Hensley [facility] BASIC METABOLIC PANEL (7) 2020-09-28 04:49:00 Ayden Gretchen MARROQUIN [facility] MAGNESIUM 2020-09-28 04:49:00 Ayden [facility] CBC W/PLT COUNT & AUTO 2020-09-28 04:49:00 Ayden Gretchen [facility] POCT-GLUCOSE METER 2020-09-27 20:57:00 Shieh, [facility] POCT-GLUCOSE METER 2020-09-27 19:07:00 Shieh, [facility] POCT-GLUCOSE METER 2020-09-27 12:26:00 Shieh, [facility] POCT-GLUCOSE METER 2020-09-27 06:36:00 Shieh, [facility] CBC W/PLT COUNT & AUTO 2020-09-27 03:45:00 [facility]OLIC PAN[facility] (7) 2020-09-27 03:45:00 Gretchen Hensley CARA [facility] MAGNESIUM 2020-09-27 03:45:00 Gretchen Hensley [facility] CBC W/PLT COUNT & AUTO 2020-09-27 03:45:00 Gretchen Hensley [facility] Lester [facility] POCT-GLUCOSE METER 2020-09-26 23:12:00 Parish [facility] POCT-GLUCOSE METER 2020-09-26 18:20:00 Parish [facility] POCT-GLUCOSE METER 2020-09-26 13:31:00 Parish [facility] XR FOOT 3 VIEWS LEFT 2020-09-26 08:38:00 Laura Nguyen [facility] POCT-GLUCOSE METER 2020-09-26 08:34:00 Parish [facility] ANAEROBIC CULTURE 2020-09-26 08:07:57 Laura Nguyen [facility] SURGICALLY OBTAINED 2020-09-26 08:07:57 Laura Nguyen [facility] - CULTURE + GRAM STAIN Medical [facility]ty [facility] ANAEROBIC CULTURE 2020-09-26 08:02:39 Laura Nguyen [facility] SURGICALLY OBTAINED 2020-09-26 08:02:39 Laura Nguyen [facility] - CULTURE + GRAM STAIN [facility] TISSUE EXAM 2020-09-26 07:56:00 Laura Nguyen [facility] AMPUTATION,TOE 2020-09-26 07:12:00 Laura Nguyen [facility] CBC W/PLT COUNT & AUTO 2020-09-26 04:37:00 Gretchen Hensley [facility] BASIC METABOLIC PANEL (7) 2020-09-26 04:37:00 Gretchen Hensley [facility] MAGNESIUM 2020-09-26 04:37:00 Ayden [facility] B-TYPE NATRIURETIC FACTOR 2020-09-26 04:37:00 Parish [facility] (BNP) [facility] CBC W/PLT COUNT & AUTO 2020-09-26 04:37:00 Ayden [facility] POCT-GLUCOSE METER 2020-09-25 21:10:00 Janetisrael [facility] POCT-GLUCOSE METER 2020-09-25 16:15:00 [facility] POCT-GLUCOSE METER 2020-09-25 11:21:00 [facility] POCT-GLUCOSE METER 2020-09-25 06:02:00 [facility] W/[facility]T COUNT & AUTO 2020-09-25 04:44:00 [facility] BASIC METABOLIC PANEL (7) 2020-09-25 04:44:00 Ayden [facility] MAGNESIUM 2020-09-25 04:44:00 Ayden [facility] CBC W/PLT COUNT & AUTO 2020-09-25 04:44:00 Hensley [facility] POCT-GLUCOSE METER 2020-09-24 20:36:00 [facility] POCT-GLUCOSE METER 2020-09-24 17:37:00 [facility] HC ARTERIAL DOPPLER LEGS 2020-09-24 13:22:[address] [facility] POCT-GLUCOSE METER 2020-09-24 06:34:[address] [facility] CBC W/PLT COUNT & AUTO 2020-09-24 05:11:00 [facility] BASIC METABOLIC PANEL (7) 2020-09-24 05:11:00 Ayden [facility] MAGNESIUM 2020-09-24 05:11:00 [facility] PTH, INTACT 2020-09-24 05:11:00 Rene Early [facility] VITAMIN D, 25-HYDROXY 2020-09-24 05:11:00 Nneka, [facility] CBC W/PLT COUNT & AUTO 2020-09-24 05:11:00 Ayden [facility] IRON, TIBC, % SAT. 2020-09-24 05:10:00 Nneka, [facility] (WITHOUT FERRITIN) [facility] FERRITIN 2020-09-24 05:10:00 Nneka, [facility] POCT-GLUCOSE METER 2020-09-23 21:25:[address] [facility] US RENAL COMPLETE 2020-09-23 20:30:00 Nneka, [facility] URINALYSIS W/ REFLEX URINE 2020-09-23 16:58:00 Nneka, max jeffries [facility] SODIUM, RANDOM URINE 2020-09-23 16:58:00 [facility], [facility] CHLORIDE, RANDOM URINE 2020-09-23 16:58:00 Nneka, [facility] Vikash I [facility] POTASSIUM, RANDOM URINE 2020-09-23 16:58:00 Nneka, max [facility] UREA NITROGEN, RANDOM 2020-09-23 16:58:00 Nneka, [facility] URINE [facility] CREATININE, RANDOM URINE 2020-09-23 16:58:00 Nneka, [facility] PROTEIN, RANDOM URINE 2020-09-23 16:58:00 Nneka, [facility] POCT-GLUCOSE METER 2020-09-23 16:20:00 [facility] POCT-GLUCOSE METER 2020-09-23 11:40:[address] [facility] 2D ECHO W/ DOPPLER 2020-09-23 08:00:[facility] POCT-GLUCOSE METER 2020-09-23 07:58:00 [facility] XR FOOT 3 VIEWS LEFT 2020-09-23 07:33:00 , Laura Thy C [facility] CBC W/PLT COUNT & AUTO 2020-09-23 04:51:00 [facility] BASIC METABOLIC PANEL (7) 2020-09-23 04:51:00 Gretchen Hensley I [facility] MAGNESIUM 2020-09-23 04:51:00 [facility] PHOSPHORUS 2020-09-23 04:51:[facility] W/[facility]T COUNT & AUTO 2020-09-23 04:51:00 [facility] POCT-GLUCOSE METER 2020-09-22 20:46:00 [facility] POCT-GLUCOSE METER 2020-09-22 17:01:00 [facility] SARS-COV2/RT-PCR ([facility] 2020-09-22 10:50:00 Ayden [facility] REF LABS) [facility] B-TYPE NATRIURETIC FACTOR 2020-09-22 06:54:[address] [facility] (BNP) [facility] BASIC METABOLIC PANEL (7) 2020-09-22 06:54:00 David Riddle [facility] CBC W/PLT COUNT & AUTO 2020-09-22 06:54:00 David Riddle [facility] PT/APTT 2020-09-22 06:54:00 David Riddle [facility] TROPONIN I 2020-09-22 06:54:00 David Riddle [facility] CBC W/PLT COUNT & AUTO 2020-09-22 06:54:00 David Riddle [facility] ED ECG INTERPRETATION 2020-09-22 06:40:53 David Riddle [facility] XR CHEST 1 VIEW PORTABLE / 2020-09-22 06:36:[address] [facility] BEDSIDE [facility] REPORT OF PROCEDURE - 2020-09-22 00:00:[address] ENDOSCOPY SCAN Scanning [facility] GLUCOSE BLOOD TEST 2020-09-17 00:00:00 [facility] [...] AUTO 2020-04-30 18:40:00 David Riddle [facility] LACTIC ACID, VENOUS 2020-04-30 18:40:00 David Riddle CH I [facility] COMPREHENSIVE METABOLIC 2020-04-30 18:40:00 David Riddle [facility] PROTHROMBIN TIME/INR 2020-04-30 18:40:00 David Riddle HI [facility] TYPE AND SCREEN, AUTOMATED 2020-04-30 18:40:00 David Riddle [facility] CBC W/PLT COUNT & AUTO 2020-04-30 18:40:00 David Riddle [facility] GLUCOSE BLOOD TEST 2020-04-26 00:00:00 [facility] OFFICE/OUTPATIENT VISIT 2020-04-26 00:00:00 [facility] EST POCT-GLUCOSE METER 2020-04-06 08:02:00 Frandy Lugo [facility] BASIC METABOLIC PANEL (7) 2020-04-06 04:26:00 Frandy Lugo [facility] CBC W/PLT COUNT & AUTO 2020-04-06 04:26:00 Frandy Lugo [facility] CBC W/PLT COUNT & AUTO 2020-04-06 04:26:00 Frandy Lugo [facility] POCT-GLUCOSE METER 2020-04-05 22:06:00 Frandy Lugo [facility] POCT-GLUCOSE METER 2020-04-05 15:18:00 Frandy Luog [facility] POCT-GLUCOSE METER 2020-04-05 11:37:00 Frandy Lugo [facility] IR PICC LINE PLACEMENT 2020-04-05 11:14:00 Frandy Lugo [facility] OLDER THAN 5 YRS [facility] POCT-GLUCOSE METER 2020-04-05 09:23:00 Frandy Lugo [facility] POCT-GLUCOSE METER 2020-04-05 07:59:00 Frandy Lugo [facility] BASIC METABOLIC PANEL (7) 2020-04-05 04:40:00 Frandy Lugo [facility] CBC W/PLT COUNT & AUTO 2020-04-05 04:40:00 Frandy Lugo [facility] CBC W/PLT COUNT & AUTO 2020-04-05 04:40:00 Frandy Lugo [facility] VANCOMYCIN LEVEL, TROUGH 2020-04-04 23:37:00 Stephane Echavarria I [facility] POCT-GLUCOSE METER 2020-04-04 21:14:00 Frandy Lugo [facility] POCT-GLUCOSE METER 2020-04-04 15:41:00 Frandy Lugo [facility] POCT-GLUCOSE METER 2020-04-04 11:36:00 Frandy Lugo [facility] POCT-GLUCOSE METER 2020-04-04 07:45:00 Frandy Lugo [facility] PROTEIN ELECTROPHORESIS, 2020-04-04 05:23:00 Keven Tiwari [facility] PTH, INTACT 2020-04-04 05:23:00 Keven Tiwari [facility] BASIC METABOLIC PANEL (7) 2020-04-04 05:23:00 Frandy Lugo [facility] CBC W/PLT COUNT & AUTO 2020-04-04 05:23:00 Frandy Lugo [facility] CBC W/PLT COUNT & AUTO 2020-04-04 05:23:00 Frandy Lugo [facility] POCT-GLUCOSE METER 2020-04-03 21:31:00 Frandy Lugo [facility] KAPPA / LAMBDA LIGHT 2020-04-03 17:10:00 Keven Tiwari [facility] HC LAB HIV-1 AG W/HIV-1&2 2020-04-03 17:10:00 Keven Tiwari I [facility] HEPATITIS PANEL, ACUTE 2020-04-03 17:10:00 Keven Tiwari [facility] CBC W/PLT COUNT & AUTO 2020-04-03 17:10:00 Keven Tiwari [facility] BASIC METABOLIC PANEL (7) 2020-04-03 17:10:00 Frandy Lugo [facility] CBC W/PLT COUNT & AUTO 2020-04-03 17:10:00 Keven Tiwari [facility] POCT-GLUCOSE METER 2020-04-03 16:05:00 Frandy Lugo [facility] POCT-GLUCOSE METER 2020-04-03 11:34:00 Frandy Lugo [facility] PROTEIN, RANDOM URINE 2020-04-03 10:52:00 [facility] SODIUM, RANDOM URINE 2020-04-03 10:39:00 Frandy Lugo [facility] CREATININE, RANDOM URINE 2020-04-03 10:39:00 Frandy Lugo [facility] UREA NITROGEN, RANDOM 2020-04-03 10:39:00 Frandy Lugo [facility] URINALYSIS W/ MICROSCOPIC 2020-04-03 10:39:00 Frandy Lugo [facility] B-TYPE NATRIURETIC FACTOR 2020-04-03 10:20:00 Milagros Lainez [facility] (BNP) [facility] US RENAL COMPLETE 2020-04-03 08:45:00 Frandy Lugo [facility] POCT-GLUCOSE METER 2020-04-03 07:27:00 [facility] ([facility] ONLY) 2020-04-03 04:48:00 [facility] BASIC METABOLIC PANEL (7) 2020-04-03 04:48:00 Lilliam [facility] PHOSPHORUS 2020-04-03 04:48:00 [facility] VANCOMYCIN LEVEL, TROUGH 2020-04-02 22:02:00 Jazmin Willard [facility] POCT-GLUCOSE METER 2020-04-02 21:17:00 Lilliam [facility] CT LOWER EXTREMITY WITHOUT 2020-04-02 17:38:00 Ray Ellis [facility] POCT-GLUCOSE METER 2020-04-02 15:51:00 [facility] POCT-GLUCOSE METER 2020-04-02 11:43:00 [facility] CBC (HEMOGRAM ONLY) 2020-04-02 06:31:00 Lilliam [facility] BASIC METABOLIC PANEL (7) 2020-04-02 06:31:00 Lilliam [facility] POCT-GLUCOSE METER 2020-04-01 15:37:00 [facility] ANAEROBIC CULTURE 2020-04-01 13:30:14 Patrick [facility] SURGICALLY OBTAINED 2020-04-01 13:30:14 Patrick [facility] - CULTURE + GRAM STAIN [facility] ANAEROBIC CULTURE 2020-04-01 13:21:05 [facility] SURGICALLY OBTAINED 2020-04-01 13:21:05 Patrick [facility] - CULTURE + GRAM STAIN [facility] TISSUE EXAM 2020-04-01 13:12:00 Patrick [facility] POCT-GLUCOSE METER 2020-04-01 12:48:00 Lilliam [facility] DEBRIDEMENT/I&D,WOUND 2020-04-01 11:52:00 Patrick [facility] POCT-GLUCOSE METER 2020-04-01 11:37:00 Lilliam [facility] ECG 12-LEAD 2020-04-01 08:42:02 Unknown, H[facility]7 [facility] ECG 12-LEAD 2020-04-01 08:42:02 Unknown, [facility] POCT-GLUCOSE METER 2020-04-01 07:24:00 Lilliam, [facility] BASIC METABOLIC PANEL (7) 2020-04-01 03:58:00 Lilliam [facility] POCT-GLUCOSE METER 2020-03-31 20:42:00 [facility] POCT-GLUCOSE METER 2020-03-31 15:27:00 [facility] POCT-GLUCOSE METER 2020-03-31 11:22:00 [facility] POCT-GLUCOSE METER 2020-03-31 07:18:00 [facility] BASIC METABOLIC PANEL (7) 2020-03-31 04:47:00 [facility] HEMOGLOBIN A1C 2020-03-31 04:47:00 [facility] CBC W/PLT COUNT & AUTO 2020-03-31 04:47:00 [facility] CBC W/PLT COUNT & AUTO 2020-03-31 04:47:00 [facility] POCT-GLUCOSE METER 2020-03-30 21:59:00 [facility] XR FOOT 3 VIEWS LEFT 2020-03-30 21:05:00 [facility] WOUND CULTURE + GRAM STAIN 2020-03-30 20:54:00 [facility] SARS-COV2/RT-PCR ([facility] & 2020-03-30 20:50:00 [facility] REF [facility]) [facility] BLOOD CULTURE 2020-03-30 20:49:00 Cody [facility] CBC W/PLT COUNT & AUTO 2020-03-30 20:49:00 [facility] BASIC METABOLIC PANEL (7) 2020-03-30 20:49:00 [facility] CBC W/PLT COUNT & AUTO 2020-03-30 20:49:00 [facility] CARDIAC CATH REPORT - SCAN 2020-03-30 00:00:00 Provider, [facility] REPORT OF PROCEDURE - 2020-03-30 00:00:00 Provider, [facility] ENDOSCOPY SCAN Scanning [facility] BLOOD CULTURE 2020-03-20 01:07:00 David Riddle [facility] LACTIC ACID, VENOUS 2020-03-20 01:07:00 David Riddle CH I [facility] CBC W/PLT COUNT & AUTO 2020-03-20 00:55:00 David Riddle [facility] BASIC METABOLIC PANEL (7) 2020-03-20 00:55:00 David Riddle [facility] C-REACTIVE PROTEIN 2020-03-20 00:55:00 David Riddle [facility] CBC W/PLT COUNT & AUTO 2020-03-20 00:55:00 David Riddle [facility] BLOOD CULTURE 2020-03-20 00:54:00 David Riddle [facility] XR FOOT 3 VIEWS LEFT 2020-03-20 00:37:00 David Riddle HI [facility] GLUCOSE BLOOD TEST 2020-03-06 00:00:00 [...] INCISION AND DRAINAGE 2019 07:17:11 Tyshawn Serra [facility] GLUCOSE BLOOD TEST 2019-11-09 00:00:00 Access He [...] s - Test 00:00:00 (procedure) [code = [facility] [id number]] Future Scheduled 2023-03-[address] [facility] Test 00:00:00 (procedure) [code = [facility] [id number]] Future Scheduled 2023-03-[address] [facility] - Test 00:00:00 (procedure) [code = [facility] [id number]] Future Scheduled 2023-03-[address] [facility] - Test 00:00:00 (procedure) [code = [facility] [id number]] Future Scheduled 2023-03-[address] [facility] - Test 00:00:00 (procedure) [code = [facility] [id number]] Future Scheduled 2023-03-[address] [facility] - Test 00:00:00 (procedure) [code = [facility] [id number]] Future Scheduled 2023-03-[address] [facility] - Test 00:00:00 (procedure) [code = [facility] [id number]] Future Scheduled 2021-09-[address] [facility] (regime[facility]therapy) [code = [id number]] Future Scheduled 2021-09-[address] [facility] examination [facility] (regime/therapy) [code = 437221707] Future Scheduled 2021-09-[address] [facility] 00[facility] examination [facility] (regime/therapy) [code = 544451077] Future Scheduled 2021-09-[address] [facility] 00[facility] examination [facility] (regime/therapy) [code = 751624558] Future Scheduled 2021-09-[address] [facility] 00[facility] examination [facility] (regime/therapy) [code = 776765908] Future Scheduled 2021-09-[address] [facility] Test 00:00[facility]00 examination [facility] (regime/therapy) [code = 662405595] Future Scheduled 2021-09-[address] [facility] 00[facility] examination [facility] (regime/therapy) [code = 515178949] Future Scheduled 2020-11-27 INFLUENZA VACCINE (#1) C [...] 00:00:00 measurement [facility] (procedure) [code = 38760972] Future Scheduled 2020-06-[address] [facility] (procedure) [code = 38020213] Future Scheduled 2020-06-[address] [facility] Test 00:[facility] (procedure) [code = 19792044] Future Scheduled 2020-06-[address] [facility] Test 00:00:00 [facility] (procedure) [code = 68634390] Future Scheduled 2020-06-[address] [facility] Test 00:00:00 measurement [facility] (procedure) [code = 00085977] Future Scheduled 2020-06-[address] [facility] Test 00:[facility]:00 [facility] (procedure) [code = 15154358] Future Scheduled 2020-06-[address] [facility] Test 00:00:00 measurement [facility] (procedure) [code = 36775745] Future Scheduled 2018-06-11 Urine screening for [facility] Test 00:00:00 protein (procedure) [facility] Center [code = 624250218] Future Scheduled 2018-06-11 Urine screening for [facility] - Test 00:00:00 protein (procedure) [facility] Center [code = 898691122] Future Scheduled 2018-06-11 Urine screening for [facility] - Test 00:00:00 protein (procedure) [facility] Center [code = 692900033] Future Scheduled 2018-06-11 Urine screening for [facility] - Test 00:00:00 protein (procedure) [facility] Center [code = 159223049] Future Scheduled 2018-06-11 Urine screening [facility] 00:[facility]00 [facility] [code = 134276540] Future Scheduled 2018-06-11 [address]rine screening [facility] 00[facility]00[facility]00 [facility]procedure[facility] [code = 360887507] Future Scheduled 2018-06-11 Urine screening [facility] 00:00:00 [facility]procedure[facility] [code = 684964227] Future Scheduled 1992 DTAP/TDAP/TD VACCINES [facility] colon (procedure) [code = 295277450] Future Scheduled [address] [facility] colon [facility]procedure) [code = 040034406] Future Scheduled [address] [facility]procedure) [code = 635899271] Future Scheduled [address] [facility]procedure) [code = 662319826] Future Scheduled [address] [facility]procedure) [code = 468291066] Future Scheduled [address] [facility]procedure) [code = 322590535] Future Scheduled [address] [facility]procedure) [code = 786521567] Encounters Start End Encounter Admission Attending Care Care Encounter Source Date/Time Date/Time Type Type Clinicians Facility Department ID 2021-07-10 Outpatient [facility] [id number] [facility] 2021-06-20 Outpatient [facility] [id number] [place] 17:29:31 [id number] [facility] 2020-05-24 Inpatient [facility] [id number] [facility] 09[facility]38[facility]20[facility]24 [facility] 2020-05-10 Inpatient [facility] [id number] [facility] 14:02:[facility] -20[facility]10 [facility] 2021-05-05 2021-06-05 Outpatient Neida NGUYEN [facility] [id number] 09:28:00 23:59:00 [facility] 2021-05-20 2021-05-20 Outpatient YANDY LAWSON [facility] [id number] Access 15:35:00 15:35:00 Health 2021-05-20 2021-05-20 Outpatient YANDY LAWSON [facility] [id number] Access 15:35:00 15:35:00 e2-5ax8-39t be3-4b30-b [facility] [id number] 0f4 [id number] 2021-05-16 2021-05-16 Outpatient YANDY LAWSON [facility] [id number] Access 12:33:00 12:33:00 Health 2021-05-16 2021-05-16 Outpatient YANDY LAWSON [facility] [id number] Access 12:33:00 12:33:00 e2-9rp2-92c 999-41be-8 [facility] [id number] 6df-[id number] 0f4 [id number] 2021-05-15 2021-05-15 Outpatient YANDY LAWSON [facility] [id number] Access 08:15:00 08:15:00 Health 2021-05-15 2021-05-15 Outpatient YANDY LAWSON [facility] [id number] Access 08:15:00 08:15:00 e2-8tv3-88s 961-4518-8 Health 0-[id number] fb9-ee55fe 0f4 cc7f43 2021-05-14 2021-05-14 Outpatient SHELBY, [facility] [id number] Access 08:39:00 08:39:00 SAMANTHA marie 2021-05-14 2021-05-14 Outpatient SHELBY, [facility] [id number] Access 08:39:00 08:39:00 SAMANTHA e2-6iy1-35i 8ef-4243- 8 [facility] 0-[id number] w5o-[id number] 0f4 [id number] 2021-05-13 2021-05-13 [facility] [id number] Access 09:00:00 09:00:00 [facility] 2021-05-13 2021-05-13 [facility] [id number] Access 09:00:00 09:00:00 PATIENT [facility] 22-4926-a4f 0af-4e30-a Health VISIT EST f-[id number] alexander [id number] 2021-05-12 2021-05-12 [facility]patient [facility] [id number] Access 07:26:00 07:26:00 [facility] 2021-05-12 2021-05-12 [facility] [id number] Access 07:26:00 07:26:00 [facility] [id number]-910 0e8-5pre-i [facility] [id number] [id number] [id number] 9778-02-07 2021-05-05 Outpatient Neida NGUYEN [facility] [id number] [place] 10:26:00 23:59:00 [facility] 2021-05-01 2021-05-01 Outpatient [facility] [id number] Access 11:26:00 11:26:00 [facility] 2021-05-01 2021-05-01 [facility] [id number] Access 11:26:00 11:26:00 [facility] 22-4926-a4f t9t-2yk9-p Health f-[id number]-[id number] alexander [id number] 2021-04-02 2021-04-02 Outpatient CONTRERAS, [facility] [id number] Access 11:59:00 11:59:00 [facility] 2021-04-02 2021-04-02 [facility] [id number] Access 11:59:00 11:59:00 [facility] 22-4926-a4f 378-4279-b [facility] f-[id number]-[id number] alexander [id number] 2021-03-27 2021-03-27 [facility] [id number] Access 08:12:00 08:12:00 [facility] 2021-03-27 2021-03-27 [facility] [id number] Access 08:12:00 08:12:00 [facility] 22-4926-a4f 69e-4048-9 [facility] f-[id number] alexander [id number] 2021-02-05 2021-02-05 Outpatient NURSE, [facility] [id number] Access 08:34:00 08:34:00 [facility] 2021-02-05 2021-02-05 Outpatient NURSE, [facility] [id number] [id number] Access 08:34:00 08:34:00 NURSE 22-4926-a4f 27a-4773-9 [facility] f-[id number] 7fb-[id number] alexander [id number] 1658-11-05 2021-01-31 Outpatient [facility] [id number] Access 12:07:00 12:07:00 [facility] 2021-01-31 2021-01-31 [facility] [id number] Access 12:07:00 12:07:00 [facility] e2-9py2-50n 77b-4d44-9 [facility] 0-[id number] [id number] 0f4 [id number] 2021-01-29 2021-01-29 Outpatient DIANE, [facility] [id number] Access 10:00:00 10:00:00 [facility] 2021-01-29 2021-01-29 OFFICE/OUT DIANE, [facility] [id number] 1 [id number] Access 10:00:00 10:00:00 PATIENT MIRTA 22-4926-a4f r86-4qnb-r Health VISIT EST f-[id number] alexander [id number] 2021-01-06 2021-01-06 Outpatient OSEI, [facility] [id number] Access 10:24:00 10:24:00 [facility] 2021-01-06 2021-01-06 Outpatient OSEI, [facility] [id number] db1 [id number] Access 10:24:00 10:24:00 [facility] 22-4926-a4f 382-4f2f-b Health f-[id number] alexander [id number] 2020-12-11 2020-12-11 Outpatient OSEI, [facility] [id number] Access 14:09:00 14:09:00 [facility] 2020-12-11 2020-12-11 Outpatient OSEI [facility] [id number] Access 14:09:00 14:09:00 [facility] e2-4fd8-05x da5-4cb6-9 [facility] 0-[id number] 0f4 [id number] 2020-12-11 2020-12-11 Outpatient NURSE, [facility] [id number] Access 13:49:00 13:49:00 NURSE [facility] 2020-12-11 2020-12-11 Outpatient NURSE, [facility] [id number] Access 13:49:00 13:49:00 NURSE 22-4926-a4f 06f-4acf-8 Health f-[id number] p27-3444q0 alexander [id number] 2020-12-06 2020-12-06 Outpatient DIANE, [facility] [id number] Access 10:17:00 10:17:00 [facility] 2020-12-06 2020-12-06 Outpatient DIANE, [facility] [id number] Access 10:17:00 10:17:00 [facility] 22-4926-a4f 937-42b7-9 Health f-[id number] 8k3-i85n3v alexander [id number] 2020-11-04 2020-12-05 Outpatient Neida [facility] [id number] [place] 09:15:00 23:59:00 [facility] 2020-12-03 2020-12-03 Outpatient DIANE, [facility] [id number] Access 09:00:00 09:00:00 [facility] 2020-12-03 2020-12-03 [facility] [id number] Access 09:00:00 09:00:00 PATIENT MIRTA 22-4926-a4f cc3-429e-b Health VISIT EST f-[id number] alexander [id number] 8308-09-07 2020-12-03 Outpatient DIANE, [facility] [id number] Access 00:00:00 00:00:00 [facility] 2020-12-03 2020-12-03 [facility] [id number] Access 00:00:00 00:00:00 [facility] ed-4120-b9c 6e0-31gu-s Health [id number] [id number] 27a 14fcc1 2020-10-07 2020-11-06 [facility] [id number] [place] 08:58:00 15:34:00 [facility] 2020-11-02 2020-11-02 [facility] [id number] Access 10:08:00 10:08:00 [facility] 2020-11-02 2020-11-02 [facility] [id number] Access 10:08:00 10:08:00 [facility] 22-4926-a4f 3ac-4fb1-9 Health f-[id number] 3ff-44aa5d alexander acf95f 2020-10-29 2020-10-29 Outpatient C DIANE [facility] [id number] [place] 10:49:00 23:59:00 [facility] 2020-10-29 2020-10-29 [facility] [id number] Access 08:30:00 08:30:00 [facility] 2020-10-29 2020-10-29 OFF[facility] [id number] Access 08:30:00 08:30:00 PATIENT [facility] 22-4926-a4f 799-42b5-b Health VISIT EST f-[id number] l1a-0m1o9b alexander [id number] 2020-10-01 2020-10-01 Outpatient [facility] [id number] Access 13:25:00 13:25:00 [facility] 2020-10-01 2020-10-01 [facility] [id number] Access 13:25:00 13:25:00 [facility] 22-4926-a4f bbe-4dcc-9 Health f-[id number] alexander [id number] 8674-06-27 2020-09-29 Hospital ER David Riddlear [facility] [id number] 06:13:00 13:20:00 Encounter Gretchen Hensley [facility] 2020-09-26 2020-09-[address] [facility] [id number] 07:00:00 08:30:00 [facility] 2020-09-26 2020-09-[address] [facility] [id number] 07:12:00 08:20:00 Event [facility] 2020-09-22 2020-09-22 Emergency ER [facility] [id number] [facility] 06:09:00 06:09:00 2020-09-22 2020-09-[address] [facility] [id number] [facility] 00:00:00 00:00:00 [facility] 2020-09-17 2020-09-17 Outpatient DIANE, [facility] [id number] Access 10:30:00 10:30:00 [facility] 2020-09-17 2020-09-17 OFFICE/OUT DIANE, [facility] [id number] Access 10:30:00 10:30:00 PATIENT MIRTA 22-4926-a4f m5r-8567-s Health VISIT EST f-[id number] alexander [id number] 2020-08-19 2020-08-19 Outpatient OMORI, [facility] [id number] Access 16:36:00 16:36:00 NAIF marie 2020-08-19 2020-08-19 Outpatient [facility], [facility] [id number] ffa [id number] Access 16:36:00 16:36:00 NAIF Estrella-4926-a4f 77c-448d- a Health f-[id number] alexander [id number] 2020-08-15 2020-08-15 Outpatient OMORI, [facility] [id number] Access 16:00:00 16:00:00 NAIF marie 2020-08-15 2020-08-15 OFFICE/OUT OMSTEFANI, [facility] [id number] b2d [id number] Access 16:00:00 16:00:00 PATIENT NAIF Estrella-4926-a4f 9z5-57ha- 8 Health VISIT EST f-[id number] bfe-b7e8ff alexander [id number] 2020-07-04 2020-07-04 Outpatient OMORI, [facility] [id number] Access 08:04:00 08:04:00 NAIF marie 2020-07-04 2020-07-04 Outpatient OMORI, [facility] [id number] [id number] Access 08:04:00 08:04:00 NAIF Estrella-4926-a4f v58-41ap- 8 Health f-[id number] 83a-8c2a7a alexander [id number] 2020-06-28 2020-06-28 Outpatient NURSE, [facility] [id number] Access 09:35:00 09:35:00 NURSE Health 2020-06-28 2020-06-28 Outpatient NURSE, [facility] [id number] Access 09:35:00 09:35:00 NURSE 89-477f-ac7 l21-8yb7-0 [facility] 5-v15p7g7e8 z07-e81w4s de3 afab8a 2020-06-19 2020-06-19 Outpatient OMORI, [facility] [id number] Access 10:00:00 10:00:00 NAIF marie 2020-06-19 2020-06-19 Outpatient OMORI, [facility] [id number] Access 10:00:00 10:00:00 NAIF 22-4926-a4f 103-4d36- a [facility] f-[id number] alexander eaa20d 2020-05-09 2020-05-09 Outpatient OMORI, [facility] [id number] Access 12:10:00 12:10:00 NAIF marie 2020-05-09 2020-05-09 Outpatient OMORI, [facility] [id number] f95 [id number] Access 12:10:00 12:10:00 NAIF 22-4926-a4f 9af-4860- 9 [facility] f-[id number]-d55bc4 alexander [id number] 2020-04-30 2020-04-[address] [facility] [id number] 18:09:00 19:41:00 David Wang [facility] 2020-04-30 2020-04-30 Emergency ER [facility] [id number] [facility] 17:53:00 17:53:00 2020-04-30 2020-04-[address] [facility] [id number] [facility] 00[facility]00 [facility] 2020-04-26 2020-04-26 [facility] [id number] Access 10:00:00 10:00:00 NAIF marie 2020-04-26 2020-04-26 OFFICE/OUT OMORI, [facility] [id number] [id number] [id number] Access 10:00:00 10:00:00 PATIENT NAIF Estrella-4926-a4f 15b-403b- a Health VISIT [facility] f-[id number] alexander [id number] 2020-04-22 2020-04-22 Outpatient OMORI, [facility] [id number] Access 14:45:00 14:45:00 NAIF marie 2020-04-22 2020-04-22 Outpatient OMORI, [facility] [id number] [id number] Access 14:45:00 14:45:00 NAIF Estrella-4926-a4f 332-4409- b Health f-[id number] f47-we61l6 alexander [id number] 2020-04-22 2020-04-22 Outpatient IRIZARRY, [facility] [id number] Access 12:41:00 12:41:00 SUKUMAR marie 2020-04-22 2020-04-22 Outpatient IRIZARRY, [facility] [id number] [id number]-e Access 12:41:00 12:41:00 SUKUMAR e2-5zd9-36a 2g6-9i7k- 9 [facility] [id number] 30c-206d01 0f4 [id number] 2020-04-18 2020-04-18 Outpatient OMORI, [facility] [id number] Access 13:20:00 13:20:00 NAIF marie 2020-04-18 2020-04-18 Outpatient OMORI, [facility] [id number] Access 13:20:00 13:20:00 NAIF Estrella-4926-a4f v83-3xo6- 9 [facility] f-[id number] alexander [id number] 2020-04-09 2020-04-09 Outpatient OMORI, [facility] [id number] Access 09:46:00 09:46:00 NAIF marie 2020-04-09 2020-04-09 Outpatient OMORI, [facility] [id number] Access 09:46:00 09:46:00 NAIF 22-4926-a4f 7fb-45a5- 8 [facility] f-[id number] eb3-4da5a2 alexander dfcadb 2020-03-30 2020-04-06 [facility] ER Tyshawn Serra [facility] [id number] 19:31:00 13:42:00 [facility] 2020-04-04 2020-04-04 Outpatient [facility], [facility] [id number] Access 14:43:00 14:43:00 NAIF marie 2020-04-04 2020-04-04 Outpatient [facility], [facility] [id number] Access 14:43:00 14:43:00 NAIF 22-4926-a4f d3s-7g60- 9 [facility] f-[id number] alexander 6cbd5c 2020-04-01 2020-04-[address] [facility] [id number] 11:51:00 12:50:00 Event [facility] 2020-04-01 2020-04-[address] [facility] [id number] 11:30:00 12:45:00 [facility] 2020-04-01 2020-04-[address] [facility] [id number] 00:00:00 00:00:00 Only [facility] 2020-03-30 2020-03-30 Emergency ER [facility] Emergency [id number] [facility] 19:22:00 19:22:00 2020-03-30 2020-03-[address] [facility] [id number] [facility] 00:[facility]00 00:00:00 [facility] 2020-03-19 2020-03-[address] [facility] [id number] 23:25:00 02:51:00 David Wang [facility] 2020-03-19 2020-03-19 Emergency ER [facility] Emergency [id number] [facility] 23:15:00 23:15:00 2020-03-19 2020-03-[address] [facility] [id number] [facility] 00:00:00 00:00:00 [facility] 2020-03-08 2020-03-08 Outpatient LUBNA SON [facility] [id number] Access 12:03:00 12:03:00 Health 2020-03-08 2020-03-08 Outpatient DINH CALVO [facility] [id number] Access 12:03:00 12:03:00 e2-6aw4-19v i40-6p15-q Health 0-wf2vcl035 4s9-998v5h 0f4 74b4d5 2020-03-06 2020-03-06 Outpatient [facility], [facility] [id number] Access 15:00:00 15:00:00 NAIF Oh 2020-03-06 2020-03-06 OFFICE/OUT [facility] [id number] [id number] [id number]-4 Access 15:00:00 15:00:00 PATIENT NAIF 22-4926-a4f 79d-4bf4- 8 Health VISIT EST f-[id number]-du4871 alexander [id number] 2019 2019 Emergency ER [facility] Emergency [id number] [facility] 07:11:00 07:11:00 2019-11-20 2019-11-20 Outpatient [facility], [facility] [id number] Access 10:30:00 10:30:00 NAIF Oh 2019-11-20 2019-11-20 Outpatient [facility], [facility] [id number] 8ff [id number] Access 10:30:00 10:30:00 NAIF 22-4926-a4f ea8-46d7- a Health f-[id number] z90-q6zda9 alexander [id number] 2019-11-09 2019-11-09 Outpatient [facility], [facility] [id number] Access 16:15:00 16:15:00 NAIF marie 2019-11-09 2019-11-09 OFFICE/OUT [facility] [id number]-6z f4c 7p780-y Access 16:15:00 16:15:00 PATIENT NAIF Bravo4926-a4f w7n-2w68- 8 Health VISIT EST f-[id number] alexander [id number] 2019-09-28 2019-09-28 Outpatient OMSTEFANI, [facility] [id number]-8q 0d0 r1370-o Access 13:21:00 13:21:00 NAIF Bravo4926-a4f 189-4af1- 9 Health f-[id number] alexander [id number] 2019-09-28 2019-09-28 Outpatient DINH CALVO [facility] [id number] Access 10:54:00 10:54:00 e2-1og0-58r 730-4d70-a Health 0-qw9fqz245 7ef-ba6cbd 0f4 [id number] 2019-07-15 2019-07-15 Emergency [facility] [id number] [facility] 22:19:00 22:19:00 [id number] 2019-07-03 2019-07-03 OFFICE/OUT OMSTEFANI, [facility] [id number]-9l 81c 154i5-f Access 10:30:00 10:30:00 PATIENT NAIF Bravo4926-a4f 8cf-4b4d- b Health VISIT EST f-[id number] 5y0-gwz4pk alexander [id number] 2019-05-09 2019-05-09 [facility] h843z-b Access 08:16:00 08:16:00 NAIF Bravo4926-a4f t0c-38m2- b Health f-[id number] 12b-ff4e3d alexander ada41d 2019-05-01 2019-05-01 Outpatient NURSE, [facility] [id number] 07a o6a6n-1 Access 09:27:00 09:27:00 NURSE Shelly4926-a4f eab-46d9-9 Health f-[id number] b03-07i77r alexander [id number] 2019-04-11 2019-04-11 Outpatient OMORI, [facility] rxv349ja-6o [id number] e9l13-v Access 17:52:00 17:52:00 NAIF Bravo4926-a4f o14-1e3r- 9 Health f-92141917m 1ed-4c31d3 alexander a7dbdd 2019-04-06 2019-04-06 Outpatient ZOE, [facility] [id number]-8x cfd [id number] Access 17:33:00 17:33:00 NAIF Bravo4926-a4f 877-42c1- a Health f-58707264w g74-95017r alexander [id number] 2019-04-04 2019-04-04 OFFICE/OUT ZOE, [facility] igv600wk-0p 0a8 7s75b-0 Access 14:30:00 14:30:00 PATIENT NAIF Bravo4926-a4f lyudmila-46ec- b Health VISIT EST f-[id number] fd1-2857e5 alexander [id number] 2018-09-07 2018-09-07 Outpatient STEFANI, [facility] [id number]-7n 7e5 64fea-3 Access 00:00:00 00:00:00 NAIF Bravo4926-a4f 2ee-4361- b Health f-[id number] i2f-4g4f89 alexander [id number] 2018-09-06 2018-09-06 Outpatient ZOE, [facility] [id number]-4r 69a [id number] Access 09:34:00 09:34:00 NAIF Bravo4926-a4f cf2-4291- 9 Health f-[id number] [id number] alexander [id number] 2018-07-26 2018-07-26 Outpatient [facility] [id number] Access 00:00:00 00:00:00 H, PROVIDER Will garcia 2018-07-26 2018-07-26 Outpatient [facility] [id number] Access 00:00:00 00:00:00 H, PROVIDER e2-4sp3-28z 24b-42 3c-8 Health 0-[id number] 0f4 [id number] 2018-07-26 2018-07-26 Outpatient CONTRERAS, [facility] [id number] Access 00:00:00 00:00:00 MIRTA Bravo4926-a4f [id number]-f Health f-[id number] alexander [id number] 2018-07-26 2018-07-26 Outpatient OMORI, [facility] [id number] Access 00:00:00 00:00:00 NAIF pierre-5cf1-85q 397-493a- a Health 0-[id number] [id number]-[id number] 0f4 [id number] 2018-07-26 2018-07-26 Outpatient OMORI, [facility] [id number] Access 00:00:00 00:00:00 NAIF Shelly4926-a4f ba6-4f54- 8 Health f-[id number] alexander [id number] 2018-07-25 2018-07-25 Outpatient OMORI, [facility] [id number] Access 00:00:00 00:00:00 NAIF Sameer-4926-a4f c11-3170- 8 Health f-[id number] cbf-5b3a7f alexander [id number] 2018-07-22 2018-07-22 Outpatient [facility] [id number] Access 00:00:00 00:00:00 H, PROVIDER Will garcia 2018-07-22 2018-07-22 Outpatient [facility] [id number] Access 00:00:00 00:00:00 H, PROVIDER gabby-9vu4-93u 1b8-4b 5b-b Health 0-[id number] 0f4 [id number] 2606-04-26 2018-07-22 Outpatient OMORI, [facility] [id number] [id number] [id number]-d Access 00:00:00 00:00:00 NAIF Sameer-4926-a4f 8cb-4f46- b Health f-[id number] alexander [id number] 2018-07-22 2018-07-22 Outpatient CONTRERAS, [facility] [id number] Access 00:00:00 00:00:00 MIRTA 22-4926-a4f y37-1gm3-d Health f-[id number] alexander cfbbac 2018-06-28 2018-06-28 Outpatient [facility] [id number] Access 00:00:00 00:00:00 H, PROVIDER Will garcia 2018-06-28 2018-06-28 Outpatient [facility] [id number] Access 00:00:00 00:00:00 H, PROVIDER april9gh7-73g 17d-4e 23-9 Health 0-yj3cen006 [id number] 0f4 bc45ce 2018-03-30 2018-03-30 Outpatient [facility] [id number] Access 00:00:00 00:00:00 H, PROVIDER Will garcia 2018-03-30 2018-03-30 Outpatient [facility] [id number] Access 00:00:00 00:00:00 H, PROVIDER april3xp6-19d 710-43 22-8 Health 0-[id number] [id number]-q8em44 0f4 7d1bee 2018-03-30 2018-03-30 Outpatient DIANE, [facility] [id number] Access 00:00:00 00:00:00 MIRTA 22-4926-a4f 56a-40cb-a Health f-[id number] alexander [id number] 0279-01-02 2018-03-30 Outpatient OMORI, [facility] [id number] Access 00:00:00 00:00:00 NAIF 22-4926-a4f 520-4c13- 8 Health f-[id number] alexander [id number] 2017-12-28 2017-12-28 Outpatient [facility] [id number] Access 00:00:00 00:00:00 H, PROVIDER Will garcia 2017-12-28 2017-12-28 Outpatient [facility] [id number] Access 00:00:00 00:00:00 H, PROVIDER april9pr3-66w bed-49 71-9 Health 0-[id number] 0f4 [id number] 2017-12-27 2017-12-27 Outpatient [facility] [id number] Access 00:00:00 00:00:00 H, PROVIDER Will garcia 2017-12-27 2017-12-27 Outpatient [facility] [id number] Access 00:00:00 00:00:00 H, PROVIDER april9ot7-68o 1d0-43 b0-a Health 0-[id number] [id number]-ecfa29 0f4 [id number] 2017-12-20 2017-12-20 Outpatient CONTRERAS, [facility] [id number] Access 08:48:00 08:48:00 MIRTA 22-4926-a4f [id number] Health f-[id number] fc6-096b3d alexander 040c9a 2017-12-20 2017-12-20 Outpatient [facility] [id number] Access 00:00:00 00:00:00 H, PROVIDER Will garcia 2017-12-20 2017-12-20 Outpatient [facility] 6fy6v1z1-3b 8ogit28l-3 Access 00:00:00 00:00:00 H, PROVIDER april8ty7-14g b2c-4b 7d-b Health 0-ka3mrg290 o36-99e19n 0f4 c568b3 2017-12-20 2017-12-20 Outpatient IRIZARRY, [facility] vow508tu-6b 79a 19678-v Access 00:00:00 00:00:00 SUKUMAR 22-4926-a4f eae-4c31- b Health f-18933485v 520-th0670 alexander 0a3c1f 2017-12-20 2017-12-20 Outpatient OMORI, [facility] ews780ak-5g 2e3 zyu2w-0 Access 00:00:00 00:00:00 NAIF 22-4926-a4f da8-4f41- a Health f-22121065h 12d-3adf05 alexander 0d5ff7 2017-12-20 2017-12-20 Outpatient ENRIQUE, [facility] yeq757vb-4e a7c 7q854-e Access 00:00:00 00:00:00 CAROLYN -4926-a4f 6f0-9l7a-9 Health f-01204802l 8b4-e19i75 alexander 4b61d6 2017-12-20 2017-12-20 Outpatient JONAS, [facility] lfx798tb-3g cf 38svs2-x Access 00:00:00 00:00:00 MAEVE -4926-a4f 051-44b8-b Health f-79425413m 0d5-9k5828 alexander aee2d5 2017-07-14 2017-07-14 Outpatient [facility] [id number] Access 00:00:00 00:00:00 H, PROVIDER Will garcia 2017-07-14 2017-07-14 Outpatient [facility] 5ma4y5p9-9p qz0g6to8-g Access 00:00:00 00:00:00 H, PROVIDER e2-0bu4-28t 109-47 80-a Health 0-qk2iyp013 784-b72946 0f4 01e0fc 2017-07-14 2017-07-14 Outpatient [facility] 4fd4p9y1-3t f0f 5b75i-e Access 00:00:00 00:00:00 e2-6xw9-71h 98a-4568-b Health 0-xx8sbe566 001-941db6 0f4 9c42e9 2017-07-14 2017-07-14 Outpatient ENRIQUE, [facility] 0kv5u1a2-3g 7d1 m6ils-0 Access 00:00:00 00:00:00 CAROLYN e2-8sj3-08o 7cb-4bf9-9 Health 0-ac6hto656 c81-4608j1 0f4 777492 6819-03-16 2017-06-11 Outpatient ZOE, [facility] qyj595cr-5m ded pi940-1 Access 00:00:00 00:00:00 NAIF Bravo4926-a4f 849-421a- a Health f-11513410w 11b-54fdd4 alexander 5p0146 2017-06-10 2017-06-10 Outpatient [facility] [id number] Access 00:00:00 00:00:00 H, PROVIDER Will garcia 2017-06-10 2017-06-10 Outpatient [facility] 2xb9z7h6-0o t5slg1uu-4 Access 00:00:00 00:00:00 H, PROVIDER e2-7kf1-65x a95-4d 18-8 Health 0-ir2xjf004 67d-88e2c2 0f4 2eef4c 2017-06-10 2017-06-10 Outpatient DIANE, [facility] ixb962ag-1o e jd7u7jh-2 Access 00:00:00 00:00:00 MIRTA 22-4926-a4f 3ac-43d9-9 Health f-06219189g 6de-45u502 alexander ceaffe 2017-06-10 2017-06-10 Outpatient EM, [facility] vzn840ke-8p 27 b1onys-2 Access 00:00:00 00:00:00 VITA 22-4926-a4f 0ec-4f3f -8 Health f-33454393r 2j4-5l8z42 alexander 86e843 2017-06-10 2017-06-10 Outpatient OMORI, [facility] ymd830cr-6n 6d7 oa991-d Access 00:00:00 00:00:00 NAIF 22-4926-a4f b8v-2592- b Health f-13766789j 499-ha023t alexander epa190 2017-04-09 2017-04-09 Outpatient OMORI, [facility] hdm956dn-8a a22 6tjg3-8 Access 13:28:00 13:28:00 NAIF 22-4926-a4f 27b-4f1f- 8 Health f-44825324v 3ef-fa2b8f alexander 63798o 2017-04-09 2017-04-09 Outpatient [facility] [id number] Access 00:00:00 00:00:00 H, PROVIDER Will garcia 2017-04-09 2017-04-09 Outpatient [facility] 1dh8d4r0-1y [id number]-4 Access 00:00:00 00:00:00 H, PROVIDER e2-3rx6-33t acc-4b a3-b Health 0-vy7ife026 i23-28uh3u 0f4 0a1413 2017-04-09 2017-04-09 Outpatient CONTRERAS, [facility] lma476vf-8t d 8575fs0-8 Access 00:00:00 00:00:00 MIRTA 22-4926-a4f be7-40fa-9 Health f-05147877i fad-beba5c alexander 745e5a 2017-03-30 2017-03-30 Outpatient [facility] [id number] Access 00:00:00 00:00:00 H, PROVIDER Will garcia 2017-03-30 2017-03-30 Outpatient [facility] 8gl4o7c2-5g e8j7z443-f Access 00:00:00 00:00:00 H, PROVIDER april1go5-00g e7f-41 b3-8 Health 0-jv3zvq527 0ab-5aj511 0f4 5ba25a 2017-02-09 2017-02-09 Outpatient [facility] [id number] Access 00:00:00 00:00:00 H, PROVIDER Will garcia 2017-02-09 2017-02-09 Outpatient [facility] 7qu0g3p1-2s 75n9ti5t-3 Access 00:00:00 00:00:00 H, PROVIDER e2-3fj6-76v eed-49 91-9 Health 0-vw5tkr694 725-88954d 0f4 de8ac2 2017-02-09 2017-02-09 Outpatient OMORI, [facility] gzu051ut-5f b35 kj969-1 Access 00:00:00 00:00:00 NAIF 22-4926-a4f c74-2a72- a Health f-06985210o k78-98x9f2 alexander 88c1fc 2017-02-09 2017-02-09 Outpatient CONTRERAS, [facility] btt750dh-4y d 43r0o89-o Access 00:00:00 00:00:00 MIRTA 22-4926-a4f 34c-46bd-b Health f-48813944u 70f-d5637r alexander faf56f 2016-12-15 2016-12-15 Outpatient [facility] [id number] Access 00:00:00 00:00:00 H, PROVIDER Will garcia 2016-12-15 2016-12-15 Outpatient [facility] 5pq6o6s0-8j [id number] Access 00:00:00 00:00:00 H, PROVIDER e2-5vn1-32b 3ba-4a 3c-8 Health 0-sy8uzg281 9fd-cceee0 0f4 5f5e8e 2016-12-15 2016-12-15 Outpatient CHARLY BARDALES [facility] [id number]-35 [id number] Access 00:00:00 00:00:00 45-5d8x-p3h l9l-60l9-j Health d-g5r927471 00b-ed1c16 354 e7dd8d 2016-12-12 2016-12-12 Outpatient [facility] [id number] Access 00:00:00 00:00:00 H, PROVIDER Will garcia 2016-12-12 2016-12-12 Outpatient [facility] 7ke0z3s2-6b s7413sk8-h Access 00:00:00 00:00:00 H, PROVIDER e2-7xy1-71e 6fa-4f 7f-9 Health 0-vq3qfv635 402-fe6f8d 0f4 1526bf 2016-12-12 2016-12-12 Outpatient ISAURA, [facility] 9vt4s5y3-9n 91 6j10om-9 Access 00:00:00 00:00:00 CHRISTINA e2-9oi8-77s u2j-6uhd- 9 Health 0-wy5cgw220 558-4d60f7 0f4 f917d6 2016-12-11 2016-12-11 Outpatient CHARLY BARDALES [facility] [id number]-39 l37p4s3r-6 Access 00:00:00 00:00:00 45-6c8g-n8f 3fe-4dc9-9 Health d-i2l144726 474-f474cb 354 c4eb2b 2016-12-10 2016-12-10 Outpatient [facility] [id number] Access 00:00:00 00:00:00 H, PROVIDER Will garcia 2016-12-10 2016-12-10 Outpatient [facility] 3rc4b7m0-4x 950rsx7z-4 Access 00:00:00 00:00:00 H, PROVIDER april4ia2-73f 706-4a aa-b Health 0-ds9ohi499 af4-5611ae 0f4 191973 4122-09-14 2016-12-10 Outpatient CHARLY BARDALES [facility] [id number]-93 0bo88w32-b Access 00:00:00 00:00:00 45-2m0r-f4u i3e-5808-i Health d-h1m621604 h5v-91a8y3 354 5b51dc 2016-12-01 2016-12-01 Outpatient [facility] [id number] Access 00:00:00 00:00:00 H, PROVIDER Will garcia 2016-12-01 2016-12-01 Outpatient [facility] 1vx0b8a7-7k 5hq3i4l2-5 Access 00:00:00 00:00:00 H, PROVIDER april7lo3-63o 4f5-4c 72-9 Health 0-te7hgf388 h4c-6xk861 0f4 8ff05c 2016-12-01 2016-12-01 Outpatient DIPIKA [facility] [id number]-28 42 co66al-4 Access 00:00:00 00:00:00 LAVELLE 45-2p1c-j4y 636-4710-8 Health d-s8l985258 2ff-2f9a6a 354 ef57e5 2016-12-01 2016-12-01 Outpatient CHARLY BARDALES [facility] [id number]-56 etpd2950-h Access 00:00:00 00:00:00 45-0w8p-g3s df0-4210-a Health d-m5z038250 1f4-867i7e 354 8d7085 2016-11-27 2016-11-27 Outpatient [facility] [id number] Access 00:00:00 00:00:00 H, PROVIDER Will garcia 2016-11-27 2016-11-27 Outpatient [facility] 2xb3a7d3-9u tkq4d7jh-7 Access 00:00:00 00:00:00 H, PROVIDER april0im3-74d db1-44 51-9 Health 0-wa1det516 7l9-d7o347 0f4 188108 6800-09-01 2016-11-27 Outpatient CANAMAR, [facility] [id number]-46 72 c1ts24-6 Access 00:00:00 00:00:00 LAVELLE 45-5w6n-p6f e67-89t4-l Health d-x6r294537 384-b0c4cd 354 eb80b5 2016-11-26 2016-11-26 Outpatient [facility] [id number] Access 00:00:00 00:00:00 H, PROVIDER Will garcia 2016-11-26 2016-11-26 Outpatient [facility] 0pj6j6n3-7r [id number]-a Access 00:00:00 00:00:00 H, PROVIDER april2ri1-32t c45-46 cf-b Health 0-hl7zmh981 4ad-4c0e68 0f4 37dc7c 2016-11-26 2016-11-26 Outpatient CANAMAR, [facility] [id number]-68 c0 nz7534-8 Access 00:00:00 00:00:00 LAVELLE 45-2d2r-g4m ae7-40e5-a Health d-f5a289470 y38-2j13m6 354 fc21e9 2016-11-20 2016-11-20 Outpatient [facility] [id number] Access 00:00:00 00:00:00 H, PROVIDER Will garcia 2016-11-20 2016-11-20 Outpatient [facility] 1lv8l6s6-1n [id number] Access 00:00:00 00:00:00 H, PROVIDER paril2wd0-50l 2e2-42 0d-8 Health 0-mg1lkv628 i22-627d59 0f4 39e240 2016-11-20 2016-11-20 Outpatient CANAMAR, [facility] [id number] 60 14b544-n Access 00:00:00 00:00:00 LAVELLE 45-4d5i-t5p 250-49d0-a Health d-y0a799434 aa8-0b8ad1 354 745917 5055-08-23 2016-11-18 Outpatient [facility] [id number] Access 00:00:00 00:00:00 H, PROVIDER Will garcia 2016-11-18 2016-11-18 Outpatient [facility] 4pv0k8m7-3x 01769c07-m Access 00:00:00 00:00:00 H, PROVIDER april3sg6-84o 7d4-4d a9-8 Health 0-pc3xmq567 o62-65mzcu 0f4 c11e26 2016-11-18 2016-11-18 Outpatient CHARLY BARDALES [facility] [id number] [id number] Access 00:00:00 00:00:00 JustoRy3z9a-p5m ea3-4257-a Health d-u6q376693 2cc-9275f9 354 e49a35 2016-11-12 2016-11-12 Outpatient CANAMAR, [facility] [id number]-31 29 92u976-w Access 00:00:00 00:00:00 LAVELLE Pepe5k0x-i5o b4p-2jc5-r Health d-l6r318356 g9q-161jd2 354 ii8134 2016-11-11 2016-11-11 Outpatient [facility] [id number] Access 00:00:00 00:00:00 H, PROVIDER Will garcia 2016-11-11 2016-11-11 Outpatient [facility] 1fn3h9z7-2f [id number] Access 00:00:00 00:00:00 H, PROVIDER april7oc0-89y 968-42 07-b Health 0-lr9hnk558 m29-334224 0f4 9f36c8 2016-11-11 2016-11-11 Outpatient CANAMAR, [facility] [id number]-09 7c y10m5u-a Access 00:00:00 00:00:00 LAVELLE Pepe0o8o-i0g 633-4aa9-8 Health d-z8q814798 f-832452 354 ee4a0e 2016-10-30 2016-10-30 Outpatient [facility] [id number] Access 00:00:00 00:00:00 H, PROVIDER Will garcia 2016-10-30 2016-10-30 Outpatient [facility] 4jl0n0c8-5w [id number] Access 00:00:00 00:00:00 H, PROVIDER e2-5wn9-69h 47b-46 3e-8 Health 0-rt4loe208 z6e-qva5s7 0f4 0f5264 2016-10-30 2016-10-30 Outpatient CHARLY BARDALES [facility] [id number]-00 [id number]-i Access 00:00:00 00:00:00 45-6e8h-u1p evert-47eb-b Health d-r5y396405 0t6-84m6ao 354 7383d1 2016-10-26 2016-10-26 Outpatient [facility] [id number] Access 00:00:00 00:00:00 H, PROVIDER Will garcia 2016-10-26 2016-10-26 Outpatient [facility] 2rw9s1k7-3j 6dc45w90-2 Access 00:00:00 00:00:00 H, PROVIDER e2-2li8-73y 1e9-4c db-b Health 0-tz3lyl403 j98-e089vy 0f4 48ce57 2016-10-26 2016-10-26 Outpatient ISAURA, [facility] 3ev9r1i2-2q e8 07oc03-4 Access 00:00:00 00:00:00 CHRISTINA e2-9ha0-54p j2n-0951- 9 Health 0-rn3fze126 w0e-a7o0u4 0f4 7373c9 2016-10-26 2016-10-26 Outpatient OMORI, [facility] 6lp7v9a2-4e 5e5 0v8sy-8 Access 00:00:00 00:00:00 NAIF e2-8fw2-44t n26-6l51- b Health 0-jx8yts118 000-hz3405 0f4 79f96a 2016-10-09 2016-10-09 Outpatient CANAMAR, [facility] [id number]-50 cf 6536cf-2 Access 00:00:00 00:00:00 LAVELLE 45-2f8j-g2m 038-47e9-8 Health d-p8i725620 93d-796d4d 354 1ee1de 2016-10-08 2016-10-08 Outpatient [facility] [id number] Access 00:00:00 00:00:00 H, PROVIDER Will garcia 2016-10-08 2016-10-08 Outpatient [facility] 4xe2v9f6-0t 2021i764-e Access 00:00:00 00:00:00 H, PROVIDER april1nk4-68x 757-44 91-a Health 0-cj3zej979 338-7c8ea0 0f4 p8n150 2016-10-08 2016-10-08 Outpatient CANAMAR, [facility] [id number]-02 46 sq8fp6-2 Access 00:00:00 00:00:00 LAVELLE Pepe7k1b-k3h m57-5b9y-d Health d-d5g511669 65d-fda44a 354 c196f4 2016-10-05 2016-10-05 Outpatient [facility] [id number] Access 00:00:00 00:00:00 H, PROVIDER Will garcia 2016-10-05 2016-10-05 Outpatient [facility] 8ou3d3m4-4p 08u9qs5a-2 Access 00:00:00 00:00:00 H, PROVIDER tatyana3pb7-23v 137-4e 58-a Health 0-mx7vtn316 0aa-90893x 0f4 ks873c 2016-10-05 2016-10-05 Outpatient CANAMAR, [facility] 16v7216p-16 c9 9i88s4-b Access 00:00:00 00:00:00 LAVELLE ePpe9m2j-j1u 9q4-041b-n Health d-x9c652861 l00-eh12cu 354 [id number] 4992-06-29 2016-09-24 Outpatient [facility] [id number] Access 00:00:00 00:00:00 H, PROVIDER Will garcia 2016-09-24 2016-09-24 Outpatient [facility] 0di4v1j6-4g 66mr7t72-j Access 00:00:00 00:00:00 H, PROVIDER e2-3ov5-68h 9da-4d 9e-a Health 0-wv6ltx087 z30-33982u 0f4 0747d9 2016-09-24 2016-09-24 Outpatient ISAURA, [facility] 1fq0y6y4-2q af 356300-j Access 00:00:00 00:00:00 CHRISTINA e2-6yl9-22s p04-148e- b Health 0-ac8qvk197 k5k-4e564k 0f4 7bee42 2016-09-24 2016-09-24 Outpatient OMORI, [facility] 7vc3z4x4-3n 060 5o5q5-6 Access 00:00:00 00:00:00 NAIF e2-9uc5-10v 4bb-4165- a Health 0-yw1isa445 98a-8e690r 0f4 44f424 2016-09-22 2016-09-22 Outpatient [facility] [id number] Access 00:00:00 00:00:00 H, PROVIDER Will garcia 2016-09-22 2016-09-22 Outpatient [facility] 0dm8z2l1-3q [id number]-9 Access 00:00:00 00:00:00 H, PROVIDER e2-6cd9-72r 072-4c 2a-9 Health 0-ye4yjz332 094-b1ac8e 0f4 1311cf 2016-09-22 2016-09-22 Outpatient TIMA, [facility] 5uy4h1c3-1a 292 72ebd-f Access 00:00:00 00:00:00 OSMAN e2-6rh1-02z 330-4e57-a Health 0-lp1xkt723 92e-33cd44 0f4 7u0482 2016-09-22 2016-09-22 Outpatient CONTRERAS, [facility] 0gl9p4k2-6l 2 7b5wqj0-n Access 00:00:00 00:00:00 MIRTA e2-8qn7-37f 87b-4174-a Health 0-zd9kgq386 470-68j435 0f4 1573c2 2016-08-26 2016-08-26 Outpatient [facility] [id number] Access 00:00:00 00:00:00 H, PROVIDER Will garcia 2016-08-26 2016-08-26 Outpatient [facility] 0qd4g8z9-0k e072soqd-e Access 00:00:00 00:00:00 H, PROVIDER e2-7ih9-09t a1b-4a 92-8 Health 0-ui8fhe861 z44-2ykx47 0f4 4uh711 2016-08-26 2016-08-26 Outpatient MENDIETA, [facility] 0bz5e7o5-4a da mok05p-3 Access 00:00:00 00:00:00 CHRISTINA e2-8rr5-77y 81b-44be- a Health 0-ht5ujd341 452-0z8674 0f4 4v9618 2016-08-26 2016-08-26 Outpatient IRIZARRY, [facility] 9mh9p8u6-0t afb 6lv44-1 Access 00:00:00 00:00:00 KATELINE e2-1ew2-25i 026-4182- b Health 0-bo2jky724 11d-7w7087 0f4 0q8090 2016-08-26 2016-08-26 Outpatient OMORI, [facility] 7wf0h2s7-2z c21 101ca-e Access 00:00:00 00:00:00 NAIF e2-0th0-88v x3l-2744- a Health 0-nx2oep664 ec7-v10696 0f4 92c4e9 2016-08-03 2016-08-03 Outpatient TIMA, [facility] sra051gg-6l e56 2vr11-b Access 16:13:00 16:13:00 OSMAN 22-4926-a4f 17d-4116-b Health f-07688814g 320-16acc1 alexander 11df8e 2016-07-29 2016-07-29 Outpatient [facility] [id number] Access 00:00:00 00:00:00 H, PROVIDER Will garcia 2016-07-29 2016-07-29 Outpatient [facility] 9kt6w5f5-9f [id number] Access 00:00:00 00:00:00 H, PROVIDER e2-6ty8-29h 2c6-43 ca-8 Health 0-vv9lao500 fe8-48fadf 0f4 54c2ba 2016-07-29 2016-07-29 Outpatient TIMA, [facility] piy438en-6y a6f 39cf8-1 Access 00:00:00 00:00:00 OSMAN 22-4926-a4f 6ad-4eac-9 Health f-14503606h ab0-86e98c alexander b2011t 2016-07-29 2016-07-29 Outpatient DIANE, [facility] ddo745nj-2j d t77uy00-9 Access 00:00:00 00:00:00 MIRTA 22-4926-a4f 0l1-24za-0 Health f-54144814u 67a-3d9ddd alexander lww018 2016-07-24 2016-07-24 Outpatient [facility] [id number] Access 00:00:00 00:00:00 H, PROVIDER Will garcia 2016-07-24 2016-07-24 Outpatient [facility] 0ux6u7l1-8z [id number] Access 00:00:00 00:00:00 H, PROVIDER e2-3ec7-74m 046-4f 02-a Health 0-xo0jti223 9k8-50sz05 0f4 062d54 2016-07-24 2016-07-24 Outpatient MENDIETA, [facility] ojf345pf-3u d2 705l36-g Access 00:00:00 00:00:00 CHRISTINA 22-4926-a4f s6q-36ed- b Health f-55616396i z6t-467344 alexander c19d1a 2016-07-24 2016-07-24 Outpatient OMORI, [facility] poi604du-6m e3f n0c69-t Access 00:00:00 00:00:00 NAIF 22-4926-a4f k4t-14z3- 8 Health f-68360528x bba-be69db alexander 0b9f49 2016-07-17 2016-07-17 Outpatient ENRIQUE, [facility] kjl636az-7j 163 g15oy-7 Access 00:00:00 00:00:00 GAYTARI 22-4926-a4f m37-7922-k Health f-83388628h ec6-9ef36c alexander [id number] 5452-04-20 2016-07-16 Outpatient [facility] [id number] Access 00:00:00 00:00:00 H, PROVIDER Will garcia 2016-07-16 2016-07-16 Outpatient [facility] 3hw2n2h1-1w 827e23qr-2 Access 00:00:00 00:00:00 H, PROVIDER e2-7az4-67t f7c-42 66-9 Health 0-fw1zwd658 762-340d90 0f4 1876fa 2016-07-16 2016-07-16 Outpatient IRIZARRY, [facility] [id number] 692 3a3w4-n Access 00:00:00 00:00:00 KATELINE 45-7y4a-l6p 17f-442e- a Health d-k8h677087 ddf-7k6821 354 e90b6a 2016-07-16 2016-07-16 Outpatient DIANE, [facility] xzx826sh-8d c 0387fac-c Access 00:00:00 00:00:00 MIRTA 22-4926-a4f 06b-4903-a Health f-47511199f u15-1m9j34 alexander b20196 2016-07-16 2016-07-16 Outpatient CHARLY BARDALES [facility] [id number]-47 66wbz251-j Access 00:00:00 00:00:00 45-6s2e-q7i 049-4b28-8 Health d-v6t799096 36f-58j001 354 gjx384 2016-07-16 2016-07-16 Outpatient ENRIQUE, [facility] [id number]-[id number] 2cb [id number]-a Access 00:00:00 00:00:00 GAYTARI 22-4926-a4f ec3-43e2-b Health f-[id number] 989-acffbb alexander acf4d2 2016-07-14 2016-07-14 Outpatient [facility] [id number] Access 00:00:00 00:00:00 H, PROVIDER Will garcia 2016-07-14 2016-07-14 Outpatient [facility] [id number] Access 00:00:00 00:00:00 H, PROVIDER e2-5px0-89m 52f-4d 8d-9 Health 0-dj8tbs283 596-929d1e 0f4 5cbb75 2016-07-14 2016-07-14 Outpatient CONTRERAS, [facility] [id number] f [id number] Access 00:00:00 00:00:00 MIRTA 22-4926-a4f 486-43ef-b Health f-[id number] 58e-c764a4 alexander [id number] 2016-07-14 2016-07-14 Outpatient TIMA, [facility] [id number]-3w b38 [id number]-1 Access 00:00:00 00:00:00 OSMAN 22-4926-a4f 0q9-4x60-m Health f-[id number] 532-cac9af alexander bf28b2 2016-07-06 2016-07-06 Outpatient [facility] [id number] Access 00:00:00 00:00:00 H, PROVIDER Will garcia 2016-07-06 2016-07-06 Outpatient [facility] [id number] Access 00:00:00 00:00:00 H, PROVIDER april0ou2-58t 7e3-46 ad-b Health 0-gi9btu288 60a-45478c 0f4 [id number] 4203-04-10 2016-07-06 Outpatient TIMA, [facility] [id number] ca6 [id number]-c Access 00:00:00 00:00:00 OSMAN 22-4926-a4f 308-477e-b Health f-[id number] 2t7-f4v34x alexander befcac 2016-07-06 2016-07-06 Outpatient CONTRERAS, [facility] [id number] a [id number]-5 Access 00:00:00 00:00:00 MIRTA 22-4926-a4f j51-7y97-9 Health f-[id number] p4t-xgf44g alexander l5516n 2016-07-01 2016-07-01 Outpatient [facility] [id number] Access 00:00:00 00:00:00 H, PROVIDER Will garcia 2016-07-01 2016-07-01 Outpatient [facility] [id number] Access 00:00:00 00:00:00 H, PROVIDER april3xm1-12z fbd-41 57-9 Health 0-wa6zuo301 6u9-42534d 0f4 13dfc5 2016-07-01 2016-07-01 Outpatient VERACHARLY [facility] [id number] Access 00:00:00 00:00:00 45-3n6t-i1q 8ef-44fa-9 Health d-[id number] 145-03bbe1 354 734d1e 2016-07-01 2016-07-01 Outpatient IRIZARRY, [facility] [id number] [id number] 1438d-f Access 00:00:00 00:00:00 KATELINE 45-7f6w-p8l w00-6jen- 9 Health d-[id number] 3h5-5lu5x2 354 [id number] 1381-04-02 2016-06-28 Outpatient TIMA, [facility] [id number]-8d ba4 m2tl7-9 Access 00:00:00 00:00:00 OSMAN 22-4926-a4f fb6-4103-8 Health f-[id number] b05-5092a7 alexander 5o629c 2016-06-25 2016-06-25 Outpatient [facility] [id number] Access 00:00:00 00:00:00 H, PROVIDER Will garcia 2016-06-25 2016-06-25 Outpatient [facility] [id number] Access 00:00:00 00:00:00 H, PROVIDER gabby-3wp7-01p 98e-47 c8-a Health 0-fs8yyg245 t8f-o310y6 0f4 4f1aaa 2016-06-25 2016-06-25 Outpatient TIMA, [facility] [id number]-6j 9e0 9vr3p-3 Access 00:00:00 00:00:00 OSMAN 22-4926-a4f 533-4298-a Health f-[id number] 4g2-a1m1ic alexander [id number] 2228-03-30 2016-06-25 Outpatient ISAURA, [facility] [id number] [id number]-5 Access 00:00:00 00:00:00 CHRISTINA 45-9g6y-x6e n35-2884- a Health d-[id number] 74d-bc9f79 354 [id number] 2016-06-25 2016-06-25 Outpatient OMORI, [facility] [id number] q2gm0-9 Access 00:00:00 00:00:00 NAIF 45-5v1u-x7t 7a8-13j1- b Health d-[id number] def-275d83 354 ib001c 2016-06-25 2016-06-25 Outpatient DIANE, [facility] [id number]-[id number] f [id number] Access 00:00:00 00:00:00 MIRTA 22-4926-a4f n5a-91wi-f Health f-[id number] 4b2-318ur8 alexander bc1d2c 2016-06-08 2016-06-08 Outpatient [facility] [id number] Access 00:00:00 00:00:00 H, PROVIDER Will garcia 2016-06-08 2016-06-08 Outpatient [facility] [id number] Access 00:00:00 00:00:00 H, PROVIDER e2-6pu4-00d d53-4b 39-b Health 0-ty3aea422 49d-bb0c97 0f4 [id number] 2016-06-08 2016-06-08 Outpatient CHARLY BARDALES [facility] [id number] Access 00:00:00 00:00:00 45-5k4n-t5f 84c-42c0-9 Health d-[id number] 644-e9c44e 354 a4d7b9 2016-06-08 2016-06-08 Outpatient IRIZARRY, [facility] [id number] cdb 06964-l Access 00:00:00 00:00:00 KATELINE 45-9c3t-p3a 41d-4957- b Health d-[id number] 0s1-b3ddwy 354 [id number] 2016-05-19 2016-05-19 Outpatient [facility] [id number] Access 00:00:00 00:00:00 H, PROVIDER Will garcia 2016-05-19 2016-05-19 Outpatient [facility] [id number] Access 00:00:00 00:00:00 H, PROVIDER e2-4we8-18o tonya-4c 95-a Health 0-yf3kxo120 g7j-v2ew6d 0f4 0e2daa 2016-05-19 2016-05-19 Outpatient TIMA, [facility] 3eu7u2v4-0l fc5 [id number]-6 Access 00:00:00 00:00:00 OSMAN e2-8bm0-32h ad3-40d5-b Health 0-ww4vmj660 bc9-a48b2d 0f4 [id number] 2016-05-19 2016-05-19 Outpatient CONTRERAS, [facility] [id number] 8 [id number] Access 00:00:00 00:00:00 MIRTA pierre-4ad3-15b 9y3-9676-f Health 0-ij5mwf248 b51-v8m449 0f4 39beb0 2016-05-15 2016-05-15 Outpatient [facility] [id number] Access 00:00:00 00:00:00 H, PROVIDER Will garcia 2016-05-15 2016-05-15 Outpatient [facility] [id number] Access 00:00:00 00:00:00 H, PROVIDER e2-6wj9-86l bbe-4f 60-b Health 0-cp3cqo961 941-41ae95 0f4 [id number] 2016-05-15 2016-05-15 Outpatient CONTRERAS, [facility] [id number] f [id number] Access 00:00:00 00:00:00 MIRTA 45-4g8t-v9e 4w4-0207-9 Health d-f1f161040 311-x0w030 354 835fae 2016-05-15 2016-05-15 Outpatient OMSTEFANI, [facility] [id number] 2b7 [id number] Access 00:00:00 00:00:00 NAIF 45-2i8g-d2w 373-4ac8- b Health d-[id number] 7s5-u821ka 354 oc7724 2016-05-15 2016-05-15 Outpatient ISAURA, [facility] [id number] d3 7ssal8-2 Access 00:00:00 00:00:00 CHRISTINA 45-1v6e-f8x w29-8443- a Health d-f6y397152 [facility]23398w 354 [id number] 2016-05-15 2016-05-15 Outpatient IRIZARRY, [facility] [id number]-18 e10 [id number] Access 00:00:00 00:00:00 KATBRIGIDA 45-6h5m-x6y e4f-4e4s- a Health d-x6b002248 358-d132b6 354 e444e3 2016-05-11 2016-05-11 Outpatient [facility] [id number] Access 00:00:00 00:00:00 H, PROVIDER Will garcia 2016-05-11 2016-05-11 Outpatient [facility] 5sg9q2r6-7f 7e810n4p-3 Access 00:00:00 00:00:00 H, PROVIDER e2-4dp2-92d 986-4e 16-9 Health 0-iy6qty243 8w8-79s065 0f4 867487 8364-02-13 2016-05-11 Outpatient FOREIGN, [facility] [id number]-90 73kz31e8-8 Access 00:00:00 00:00:00 FRANKLIN 45-7q2u-e4q ee0-4498-a Health d-q9b923536 cb7-627bcc 354 62c67e 2016-05-11 2016-05-11 Outpatient CONTRERAS, [facility] 59w0622e-84 f 7jx3qax-y Access 00:00:00 00:00:00 MIRTA 45-2s3j-j9k 36e-4988-b Health d-p2j188230 [facility] 727e3d 2016-05-08 2016-05-08 Outpatient [facility] [id number] Access 00:00:00 00:00:00 H, PROVIDER Will garcia 2016-05-08 2016-05-08 Outpatient [facility] 5xd8z3j0-3m 0311m64y-4 Access 00:00:00 00:00:00 H, PROVIDER e2-8at3-61b e1f-48 2e-8 Health 0-vm0lcc177 2db-wul352 0f4 bc16c2 2016-05-08 2016-05-08 Outpatient SHELBY, [facility] 7qj3l4d0-3n 18c r7830-y Access 00:00:00 00:00:00 SAMANTHA e2-3ry7-92s 27d-42df- a Health 0-sv7xve355 bb7-14169s 0f4 27c890 2016-05-08 2016-05-08 Outpatient CONTRERAS, [facility] 5yn9s2f6-6d 3 p927v8h-9 Access 00:00:00 00:00:00 MIRTA e2-6ck6-36m 353-45e9-a Health 0-du1ijc522 be5-v80897 0f4 8412be 2016-05-05 2016-05-05 Outpatient SHELBY, [facility] 1iu4u4e9-7j 773 x3f2x-8 Access 00:00:00 00:00:00 SAMANTHA e2-2gj5-01f 09b-4a43- a Health 0-ba9rhh650 83f-02ffd4 0f4 8eed89 2016-05-04 2016-05-04 Outpatient [facility] [id number] Access 00:00:00 00:00:00 H, PROVIDER Will garcia 2016-05-04 2016-05-04 Outpatient [facility] 1rb5r8s7-8y 28qpwkf2-2 Access 00:00:00 00:00:00 H, PROVIDER e2Ry0km1-40q 964-4e b0-8 Health 0-ab4dhj340 fd5-e283fd 0f4 1cba2b 2016-05-04 2016-05-04 Outpatient SHELBY, [facility] 4cr7m2f2-0y c7e 1r093-3 Access 00:00:00 00:00:00 SAMANTHA e2-9hk3-39g 677-4bd7- b Health 0-ik5vvy404 14f-f6fe70 0f4 49096i 2016-05-04 2016-05-04 Outpatient DIANE, [facility] 9ko3a8e5-5x d t84972p-r Access 00:00:00 00:00:00 MIRTA e2-3wx9-09z 294-4fb9-a Health 0-lg6dyw480 51f-f628b0 0f4 b8296x 2016-04-27 2016-04-27 Outpatient [facility] [id number] Access 00:00:00 00:00:00 H, PROVIDER Will garcia 2016-04-27 2016-04-27 Outpatient [facility] 0nl2w6q3-6n x709hi85-3 Access 00:00:00 00:00:00 H, PROVIDER april7gm3-91t 0c7-4f f1-8 Health 0-bf5tbt413 de9-3790eb 0f4 4239d8 2016-04-27 2016-04-27 Outpatient DIANE, [facility] 7gz0m9y6-3a 3 0wez452-2 Access 00:00:00 00:00:00 MIRTA e2-1iz9-98m 3j6-9v77-n Health 0-yu7qrj029 0i1-z79143 0f4 0g922k 2016-04-27 2016-04-27 Outpatient DESTINY, [facility] 2wl2w1i5-3d edf 9q3o0-q Access 00:00:00 00:00:00 MELVA e2-7tu3-62i 4fb-4099-9 Health 0-ky2ypg262 ca8-42b5cf 0f4 047ded 2016-04-24 2016-04-24 Outpatient [facility] [id number] Access 00:00:00 00:00:00 H, PROVIDER Will garcia 2016-04-24 2016-04-24 Outpatient [facility] 7nu0r9k4-1c qx2wmk2y-f Access 00:00:00 00:00:00 H, PROVIDER e2-8wq1-43a 5aa-41 ee-8 Health 0-op5yzd195 bfc-k28688 0f4 t4101s 2016-04-24 2016-04-24 Outpatient FOREIGN, [facility] [id number]-94 x04yh541-3 Access 00:00:00 00:00:00 FRANKLIN 45-7j2p-y7b 5f7-6i35-9 Health d-c2f047587 fee-2fp968 354 f7e46e 2016-04-24 2016-04-24 Outpatient ISAURA, [facility] 26e0579u-66 47 9e60f4-0 Access 00:00:00 00:00:00 CHRISTINA 45-9q8w-n3k 287-4cce- 9 Health d-t5p295068 5d4-690s25 354 0c8ebc 2016-04-24 2016-04-24 Outpatient SHELBY, [facility] 1yd2o2t1-2a 978 5y057-j Access 00:00:00 00:00:00 SAMANTHA e2-5je4-99w 3ec-4aa4- 8 Health 0-er0zqt981 q15-02phj9 0f4 cfdb01 2016-04-24 2016-04-24 Outpatient DIANE, [facility] 5vc4b6x0-2r 3 t7ec3c9-0 Access 00:00:00 00:00:00 MIRTA e2-0mz5-83p 39f-490c-b Health 0-ey6jrz606 8ce-a94b3d 0f4 611fdf 2016-04-24 2016-04-24 Outpatient DIANE, [facility] 68t3947a-53 2 [id number]-z Access 00:00:00 00:00:00 MIRTA 45-4z8x-c5d 86a-4439-a Health d-u0b659201 q3h-89x6yx 354 218d45 2016-04-24 2016-04-24 Outpatient IRIZARRY, [facility] 53m5290q-26 fc7 8687c-4 Access 00:00:00 00:00:00 SUKUMAR 45-8r5t-b4y y2j-8m35- a Health d-w5r809941 u8q-3pm397 354 9f3b30 2016-04-24 2016-04-24 Outpatient ZOE, [facility] [id number]-72 d38 l3p37-3 Access 00:00:00 00:00:00 NAIF 45-6g2x-g6k 768-4bfb- b Health d-u2y483659 r0m-97b8b4 354 4dd6fd 2016-04-23 2016-04-23 Outpatient [facility] [id number] Access 00:00:00 00:00:00 H, PROVIDER Will garcia 2016-04-23 2016-04-23 Outpatient [facility] 6at0v5x8-4j w5nm3e44-s Access 00:00:00 00:00:00 H, PROVIDER april0fy5-84c be8-4b 21-9 Health 0-tp6rrp161 3dc-5f1e84 0f4 22d77d 2016-04-23 2016-04-23 Outpatient DIANE, [facility] [id number]-96 6 b53a19q-v Access 00:00:00 00:00:00 MIRTA 45-5u4h-q5p 994-45ef-b Health d-q9x212118 2f4-g4210h 354 51ffb4 2016-04-23 2016-04-23 Outpatient FOREIGN, [facility] 25a3472h-70 41r782mp-w Access 00:00:00 00:00:00 FRANKLIN 45-4r8b-e7m eaf-4e51-9 Health d-o5o112654 8g7-p9i496 354 7999a2 2016-04-20 2016-04-20 Outpatient [facility] [id number] Access 00:00:00 00:00:00 H, PROVIDER Will garcia 2016-04-20 2016-04-20 Outpatient [facility] 2ks4i5k1-3q [id number]-6 Access 00:00:00 00:00:00 H, PROVIDER april2zx5-55n a9b-45 15-9 Health 0-qi9vpp804 8c6-428302 0f4 723448 3880-01-23 2016-04-20 Outpatient DESTINY, [facility] 4wu1l5p6-5r 407 84d6a-k Access 00:00:00 00:00:00 MELVA e2-8ln0-12e 067-4720-a Health 0-xy7yjr360 679-47bd8d 0f4 636a60 2016-04-20 2016-04-20 Outpatient DIANE, [facility] 5wd9z8h6-7t 2 33asu6m-m Access 00:00:00 00:00:00 MIRTA e2-2nw0-27h 373-4fb8-8 Health 0-tt5vkh787 9m6-dt6907 0f4 3b9fb0 2016-04-17 2016-04-17 Outpatient [facility] [id number] Access 00:00:00 00:00:00 H, PROVIDER Will garcia 2016-04-17 2016-04-17 Outpatient [facility] 2fd0w9x4-4i 6b588e2l-l Access 00:00:00 00:00:00 H, PROVIDER april1qs4-80k 7cd-42 99-a Health 0-nq2jzm790 b79-y2p4k3 0f4 685c34 2016-04-07 2016-04-07 Outpatient [facility] 107 [id number] Access 00:00:00 00:00:00 H, PROVIDER Will garcia 2016-04-07 2016-04-07 Outpatient [facility] 1lm2l4h6-5r 76b0jde0-r Access 00:00:00 00:00:00 H, PROVIDER e2-2mm2-28p f6e-4e 34-8 Health 0-bm9ibf220 026-e65fd2 0f4 3f7d68 2016-04-07 2016-04-07 Outpatient TIMA, [facility] rmt672jk-1i 561 h3e74-p Access 00:00:00 00:00:00 OSMAN 22-4926-a4f d4n-1uj3-b Health f-24503072n 89b-711bf4 alexander ph358v 2016-04-07 2016-04-07 Outpatient TIMA, [facility] 3cn4g0w9-9l 515 ffab0-4 Access 00:00:00 00:00:00 OSMAN e2-0ap3-65y 605-4ff2-a Health 0-gk9iiq747 18f-33g199 0f4 130b3b 2016-04-07 2016-04-07 Outpatient CONTRERAS, [facility] fdo248dx-6x 8 9054h97-v Access 00:00:00 00:00:00 MIRTA 22-4926-a4f 57e-49df-a Health f-83953505e 23e-006f72 alexander 0l110c 2016-04-06 2016-04-06 Outpatient [facility] [id number] Access 00:00:00 00:00:00 H, PROVIDER Will garcia 2016-04-06 2016-04-06 Outpatient [facility] 3vu3q9k0-4v 6378h043-z Access 00:00:00 00:00:00 H, PROVIDER e2-6nx2-45l 933-4f 57-9 Health 0-xq4ter076 cdf-f04f62 0f4 16y527 2016-04-06 2016-04-06 Outpatient TIMA, [facility] 9ef3i9w4-6c c72 n07l9-4 Access 00:00:00 00:00:00 OSMAN e2-0kr8-86x p5z-1k12-a Health 0-kw6fzo638 n27-32650j 0f4 ad40b7 2016-04-06 2016-04-06 Outpatient CONTRERAS, [facility] 9rs5l7k8-5e 3 fv825r4-t Access 00:00:00 00:00:00 MIRTA e2-9cg5-41v eb2-4dd6-b Health 0-ba3vkm927 9fd-dc32d8 0f4 82c794 2016-03-26 2016-03-26 Outpatient [facility] [id number] Access 00:00:00 00:00:00 H, PROVIDER Will garcia 2016-03-26 2016-03-26 Outpatient [facility] 4vl5a2b9-0x 2w71m3o9-z Access 00:00:00 00:00:00 H, PROVIDER e2-7wt6-57k f3d-41 a6-a Health 0-al9vmc077 ba9-6872c4 0f4 021010 6532-12-29 2016-03-26 Outpatient OMORI, [facility] ybm204nv-0j 8bc 7uzl6-4 Access 00:00:00 00:00:00 NAIF 22-4926-a4f 598-4848- a Health f-77783444d 098-293a08 alexander wr964w 2016-03-26 2016-03-26 [facility] lj07a9u-7 Access 00:00:00 00:00:00 MIRTA 22-4926-a4f 6ee-4ff7-b Health f-64202497w 583-72eac5 alexander 326a7e 2016-03-26 2016-03-26 [facility] 576 6q0rt-0 Access 00:00:00 00:00:00 SUKUMAR 22-4926-a4f 3s1-8a66- 8 Health f-92071339b 9cc-3h4986 alexander 0b4fc0 2016-03-25 2016-03-25 Outpatient [facility] [id number] Access 00:00:00 00:00:00 H, PROVIDER Will garcia 2016-03-25 2016-03-25 Outpatient [facility] 8gb1u2x8-3n 65f60n11-u Access 00:00:00 00:00:00 H, PROVIDER e2-8jy1-75x dd6-45 84-8 Health 0-ue2lao040 7r6-h11egv 0f4 au132d 2016-03-25 2016-03-25 Outpatient TIMA, [facility] oto781qd-0p 560 98q16-4 Access 00:00:00 00:00:00 OSMAN 22-4926-a4f 065-44df-b Health f-93599188f 819-2699d1 alexander 8f5a2f 2016-03-25 2016-03-25 Outpatient CONTRERAS, [facility] chx332bs-9s 9 74kk3f8-b Access 00:00:00 00:00:00 MIRTA 22-4926-a4f c48-5z9d-7 Health f-59285907l 48f-8ad8b4 alexander b50eed 2016-03-06 2016-03-06 Outpatient [facility] [id number] Access 00:00:00 00:00:00 H, PROVIDER Will garcia 2016-03-06 2016-03-06 Outpatient [facility] 3mt3t6a2-7f 9l0v02u4-9 Access 00:00:00 00:00:00 H, PROVIDER april4bz8-88j f9e-49 00-9 Health 0-nm9faf446 84c-6j4910 0f4 58g884 2016-03-06 2016-03-06 Outpatient MENDIETA, [facility] bhi870kh-5o da 80fadd-2 Access 00:00:00 00:00:00 CHRISTINA 22-4926-a4f 0w5-5d3j- a Health f-38100735a d03-441x49 alexander 4c9b58 2016-03-06 2016-03-06 Outpatient CONTRERAS, [facility] uow389mt-2i 3 5z0kvsv-u Access 00:00:00 00:00:00 MIRTA 22-4926-a4f 95d-4894-8 Health f-27787082v 41e-08a2d9 alexander 2085f3 2016-03-03 2016-03-03 Outpatient TIMA, [facility] wzy999ot-7j 11d w4889-5 Access 00:00:00 00:00:00 OSMAN 22-4926-a4f 1fb-4f0a-a Health f-59186520u 780-22t937 alexander 2abc72 2016-02-28 2016-02-28 Outpatient [facility] [id number] Access 00:00:00 00:00:00 H, PROVIDER Will garcia 2016-02-28 2016-02-28 Outpatient [facility] 4dn7s8q7-1x o97gv2d3-5 Access 00:00:00 00:00:00 H, PROVIDER april0sz3-69h 122-40 d1-a Health 0-fm2mzz528 cd8-8e0dd4 0f4 c9ee35 2016-02-28 2016-02-28 Outpatient DIANE, [facility] rdj249jp-1k 3 600jy4u-3 Access 00:00:00 00:00:00 MIRTA 22-4926-a4f af1-4c49-8 Health f-20107536p 251-7271d4 alexander 5a4e2f 2016-02-28 2016-02-28 Outpatient TIMA, [facility] npr730qm-6f 30e 9lkw0-4 Access 00:00:00 00:00:00 OSMAN 22-4926-a4f ca3-4e7f-9 Health f-55080756j 3a9-d417j3 alexander 5fb9b9 2016-02-25 2016-02-25 Outpatient DESTINY, [facility] 6rg1u0u9-3m 882 t2zc1-e Access 00:00:00 00:00:00 MELVA e2-8sf0-65i 2w9-2cq3-1 Health 0-bo3ytn161 398-v23125 0f4 be84b6 2016-02-24 2016-02-24 Outpatient DESTINY, [facility] 6ki5f2q6-2h 970 6112d-8 Access 00:00:00 00:00:00 MELVA e2-4bh6-85y 522-4d0a-8 Health 0-tr9hyq627 3ed-40eaf8 0f4 0f12d2 2016-02-18 2016-02-18 Outpatient [facility] [id number] Access 00:00:00 00:00:00 H, PROVIDER Will garcia 2016-02-18 2016-02-18 Outpatient [facility] 4th7c1e5-2e y9iq22pc-0 Access 00:00:00 00:00:00 H, PROVIDER e2-7ie6-29e 82f-43 1a-b Health 0-vy1ary280 x3q-86433c 0f4 5abef2 2016-02-18 2016-02-18 Outpatient DESTINY, [facility] 0sh8d1w4-8o 2fa 04w57-4 Access 00:00:00 00:00:00 MELVA e2-4ti8-83p e8o-3s9k-u Health 0-tq3ouj062 279-b1d14b 0f4 e2f42d 2016-02-18 2016-02-18 Outpatient DIANE, [facility] 7co7d3w8-9k 8 5x92o12-4 Access 00:00:00 00:00:00 MIRTA e2-4kh9-74r 1h4-5321-c Health 0-bx6ehk864 alexander-e606c4 0f4 149c44 2016-02-10 2016-02-10 Outpatient TIMA, [facility] 7uv4u0q4-1k 0be 3yty8-f Access 00:00:00 00:00:00 OSMAN e2-0qp4-90h 0eb-4eb1-a Health 0-zv2fis130 54f-489979 0f4 64ba33 2016-02-06 2016-02-06 Outpatient ALLISON, [facility] [id number] [place] [address] 10:32:12 15:36:05 NAIMA alvarez of Medicin e 2016-01-30 2016-01-30 Outpatient TIMA, [facility] pbp668kc-7z 003 92v32-8 Access 00:00:00 00:00:00 OSMAN 22-4926-a4f c43-1l59-f Health f-35417901f 30e-776d1f alexander b29d1e 2016-01-28 2016-01-28 Outpatient [facility] [id number] Access 00:00:00 00:00:00 H, PROVIDER Will garcia 2016-01-28 2016-01-28 Outpatient [facility] 3tm9f2u0-6g 41z99v10-4 Access 00:00:00 00:00:00 H, PROVIDER e2-3kh4-24w d0d-4c 90-b Health 0-mu7epr458 cac-3tj113 0f4 21fba1 2016-01-28 2016-01-28 Outpatient DESTINY, [facility] 2kv5a0n9-8a 2ec d52ah-6 Access 00:00:00 00:00:00 MELVA e2-1gx7-66b e14-8ft6-1 Health 0-rn6xuw135 1u7-b709db 0f4 5909cc 2016-01-28 2016-01-28 Outpatient TIMA, [facility] 3np4l6x1-0o af0 0n8t2-d Access 00:00:00 00:00:00 OSMAN e2-8tq5-89p 855-4c09-9 Health 0-td0kmf987 8i0-bq6v10 0f4 dd65fd 2016-01-28 2016-01-28 Outpatient CONTRERAS, [facility] 9jr1l1d3-1p 2 [id number] Access 00:00:00 00:00:00 MIRTA e2-6ll6-42l 1h5-9a69-0 Health 0-qg1voy933 n37-e78e42 0f4 226cf1 2016-01-27 2016-01-27 Outpatient [facility] [id number] Access 00:00:00 00:00:00 H, PROVIDER Will garcia 2016-01-27 2016-01-27 Outpatient [facility] 9zh6t4y3-0s 518i7cq7-1 Access 00:00:00 00:00:00 H, PROVIDER gabby-1ic4-33q 6ce-4b 28-b Health 0-ww7xey030 2w4-91o211 0f4 311f8d 2016-01-27 2016-01-27 Outpatient TIMA, [facility] mbn569dj-0h 169 e9v63-z Access 00:00:00 00:00:00 OSMAN 22-4926-a4f a24-57ob-u Health f-47517584p 6ce-539978 alexander 311d01 2016-01-21 2016-01-21 Outpatient [facility] [id number] Access 00:00:00 00:00:00 H, PROVIDER Will garcia 2016-01-21 2016-01-21 Outpatient [facility] 0rn2n1h2-1g u2241457-h Access 00:00:00 00:00:00 H, PROVIDER e2-3ib1-26i be4-45 98-a Health 0-vv0icb550 79f-33e35e 0f4 b6a3ba 2016-01-21 2016-01-21 Outpatient HERNAEZ, [facility] sft060fw-7r b0 cju032-x Access 00:00:00 00:00:00 MAEVE Bravo4926-a4f 971-46ae-b Health f-54881841e 5db-ceb82a alexander 06ca45 2016-01-21 2016-01-21 Outpatient ZOE, [facility] dxg114fe-8b c83 n40x2-y Access 00:00:00 00:00:00 NAIF Bravo4926-a4f 1v2-1x8w- b Health f-50476848r 44d-88f26d alexander f4d041 2015-10-02 2015-10-02 [facility] c00 513aa-5 Access 00:00:00 00:00:00 NAIF Bravo4926-a4f 809-4330- b Health f-44246308n 5f1-rbd445 alexander 9ebe0b 2015-10-01 2015-10-01 Outpatient [facility] [id number] Access 00:00:00 00:00:00 H, PROVIDER He jose 2015-10-01 2015-10-01 Outpatient [facility] 9zp0o3z9-1h [id number] Access 00:00:00 00:00:00 H, PROVIDER e2-9ip9-58d ed0-46 e6-9 Health 0-th4xja111 57e-4efa05 0f4 ocq962 2015-10-01 2015-10-01 Outpatient OMSTEFANI, [facility] kkg994um-5r 83d bl4f7-x Access 00:00:00 00:00:00 NAIF Estrella-4926-a4f 7u6-73y7- 9 Health f-87823795o r08-hs2736 alexander lz404o 2015-10-01 2015-10-01 Outpatient DIANE, [facility] lsf040cy-6n 4 hqbz15w-3 Access 00:00:00 00:00:00 MIRTA Sameer-4926-a4f 9c4-3zf5-k Health f-68935139d g30-2z88y1 alexander c704de 2015-09-26 2015-09-26 Outpatient [facility] [id number] Access 00:00:00 00:00:00 H, PROVIDER Will garcia 2015-09-26 2015-09-26 Outpatient [facility] 4ay8o7l3-7x xx102514-1 Access 00:00:00 00:00:00 H, PROVIDER april5wa0-61e 8ad-4b 20-9 Health 0-hr5kxd476 7l1-b26q5c 0f4 1f3c6d 2015-09-26 2015-09-26 Outpatient CONTRERAS, [facility] uyv099ps-9m 6 1c0w9io-3 Access 00:00:00 00:00:00 MIRTA 22-4926-a4f 121-4c1d-b Health f-61529148k x4m-4p1p16 alexander 23o805 2015-09-26 2015-09-26 Outpatient OMORI, [facility] qym625cb-6h b24 8t542-3 Access 00:00:00 00:00:00 NAIF 22-4926-a4f 457-48de- a Health f-00902457d y14-i32p6l alexander 7t422t 2015-09-12 2015-09-12 Outpatient [facility] [id number] Access 00:00:00 00:00:00 H, PROVIDER Will garcia 2015-09-12 2015-09-12 Outpatient [facility] 5sz0i0l0-1t i0909x2t-9 Access 00:00:00 00:00:00 H, PROVIDER april6fw5-84a 126-41 a3-b Health 0-la2ckk479 625-052193 0f4 48d9d2 2015-08-21 2015-08-21 Outpatient [facility] 107 [id number] Access 00:00:00 00:00:00 H, PROVIDER Will garcia 2015-08-21 2015-08-21 Outpatient [facility] [id number] Access 00:00:00 00:00:00 H, PROVIDER april2me1-98x f2e-44 8f-b Health 0-cf6dct517 [id number] 0f4 [id number] 2015-05-22 2015-05-22 Outpatient [facility] [id number] Access 00:00:00 00:00:00 H, PROVIDER Will garcia 2015-05-22 2015-05-22 Outpatient [facility] [id number] Access 00:00:00 00:00:00 H, PROVIDER e2-7ut3-44v 2c0-43 14-b Health 0-ys2byr094 [id number] 0f4 [id number] 2015-05-21 2015-05-21 Outpatient [facility] [id number] Access 00:00:00 00:00:00 H, PROVIDER Will garcia 2015-05-21 2015-05-21 Outpatient [facility] [id number] Access 00:00:00 00:00:00 H, PROVIDER e2-3rn1-51y 9f9-45 a3-8 Health 0-gq4eyp500 [id number] 0f4 [id number] 2015-05-03 2015-05-03 Outpatient JONAS, [facility] [id number] Access 15:36:00 15:36:00 MAEVE e2-4bk2-07l k6f-1vk6-f Health 0-na3btr123 [id number] 0f4 [id number] 1668-02-05 2015-05-03 Outpatient [facility] [id number] Access 00:00:00 00:00:00 H, PROVIDER Will garcia 2015-05-03 2015-05-03 Outpatient [facility] [id number] Access 00:00:00 00:00:00 H, PROVIDER e2-5xy4-21z da3-40 14-8 Health 0-qv1wet989 [id number] 0f4 f3f5e9 2015-05-03 2015-05-03 Outpatient DIANE, [facility] [id number] Access 00:00:00 00:00:00 MIRTA e2-2qi6-33r t20-52p8-1 Health 0-qt4ugx302 s9q-[id number] 0f4 [id number] 2015-03-20 2015-03-20 Outpatient [facility] [id number] Access 00:00:00 00:00:00 H, PROVIDER Will garcia 2015-03-20 2015-03-20 Outpatient [facility] [id number] Access 00:00:00 00:00:00 H, PROVIDER tatyana1sd9-99z da0-41 96-8 Health 0-iv3zxd993 [id number] 0f4 [id number] 2015-03-15 2015-03-15 Outpatient [facility] [id number] Access 00:00:00 00:00:00 H, PROVIDER Will garcia 2015-03-15 2015-03-15 Outpatient [facility] [id number] Access 00:00:00 00:00:00 H, PROVIDER tatyana8yk4-83z 7a2-4a a9-b Health 0-oh7pss707 [id number] 0f4 [id number] 2015-03-06 2015-03-06 Outpatient [facility] [id number] Access 00:00:00 00:00:00 H, PROVIDER Will garcia 2015-03-06 2015-03-06 Outpatient [facility] [id number] Access 00:00:00 00:00:00 H, PROVIDER attyana0vq0-48u fdb-4d 58-a Health 0-cs9qhq809 [id number]-11rf58 0f4 [id number] 2015-02-19 2015-02-19 Outpatient [facility] [id number] Access 00:00:00 00:00:00 H, PROVIDER Will garcia 2015-02-19 2015-02-19 Outpatient [facility] [id number] Access 00:00:00 00:00:00 H, PROVIDER valerie8uc9-03p 127-4b 58-a Health 0-jt8mun010 [id number]-n96qm9 0f4 [id number] 2015-02-18 2015-02-18 Outpatient [facility] [id number] Access 00:00:00 00:00:00 H, PROVIDER Will garcia 2015-02-18 2015-02-18 Outpatient [facility] [id number] Access 00:00:00 00:00:00 H, PROVIDER tatyana1kn4-11g d47-48 5c-8 Health 0-hy4lan895 5cb-5cface 0f4 [id number] 2015-02-12 2015-02-12 Outpatient [facility] [id number] Access 00:00:00 00:00:00 H, PROVIDER Will garcia 2015-02-12 2015-02-12 Outpatient [facility] [id number] Access 00:00:00 00:00:00 H, PROVIDER leydi97f 279-4f 28-b Health 0-wk4ocf403 [id number] 0f4 [id number] 2015-02-11 2015-02-11 Outpatient [facility] [id number] Access 00:00:00 00:00:00 H, PROVIDER Will garcia 2015-02-11 2015-02-11 Outpatient [facility] [id number] Access 00:00:00 00:00:00 H, PROVIDER tatyana7mc4-09l 925-41 78-b Health 0-hn6alp424 [id number] 0f4 [id number] 2015-02-06 2015-02-06 Outpatient [facility] [id number] Access 00:00:00 00:00:00 H, PROVIDER Will garcia 2015-02-06 2015-02-06 Outpatient [facility] [id number] Access 00:00:00 00:00:00 H, PROVIDER leydi97f 2a8-49 15-a Health 0-xr1ysd255 [id number] 0f4 [id number] 2015-01-24 2015-01-24 Outpatient [facility] [id number] Access 00:00:00 00:00:00 H, PROVIDER Will garcia 2015-01-24 2015-01-24 Outpatient [facility] [id number] Access 00:00:00 00:00:00 H, PROVIDER april6he7-59w f80-44 d8-a Health 0-ej6don773 [id number] 0f4 [id number] 2015-01-08 2015-01-08 Outpatient [facility] [id number] Access 00:00:00 00:00:00 H, PROVIDER Will garcia 2015-01-08 2015-01-08 Outpatient [facility] [id number] Access 00:00:00 00:00:00 H, PROVIDER valerie7pq6-94o 64f-4c a3-9 Health 0-vq2pjd139 [id number] 0f4 [id number] 2015-01-01 2015-01-01 Outpatient [facility] [id number] Access 00:00:00 00:00:00 H, PROVIDER Will garcia 2015-01-01 2015-01-01 Outpatient [facility] [id number] Access 00:00:00 00:00:00 H, PROVIDER april3mp3-36d 53f-43 97-b [facility] 0-ym3rqp857 [id number] 0f4 [id number] 2014-12-27 2014-12-27 Outpatient [facility] [id number] Access 00:00:00 00:00:00 H, PROVIDER Will garcia 2014-12-27 2014-12-27 Outpatient [facility] [id number] Access 00:00:00 00:00:00 H, PROVIDER april3yk1-50l ca7-44 22-9 Health 0-ef2knl927 [id number] 0f4 [id number] 2014-12-07 2014-12-07 Outpatient [facility] [id number] Access 00:00:00 00:00:00 H, PROVIDER Will garcia 2014-12-07 2014-12-07 Outpatient [facility] [id number] Access 00:00:00 00:00:00 H, PROVIDER valerie2bc9-45f c82-4a dd-a Health 0-tp6cmt348 6ab-de3ca6 0f4 [id number] 2014-05-08 2014-05-08 Outpatient [facility] [id number] Access 00:00:00 00:00:00 H, PROVIDER Will garcia 2014-05-08 2014-05-08 Outpatient [facility] [id number] Access 00:00:00 00:00:00 H, PROVIDER valerie6ft9-46n e34-45 36-8 Health 0-jh1zbp303 [id number] 2014-04-26 2014-04-26 Outpatient [facility] [id number] Access 00:00:00 00:00:00 H, PROVIDER Will garcia 2014-04-26 2014-04-26 Outpatient [facility] [id number] Access 00:00:00 00:00:00 H, PROVIDER [id number] Health [id number] 2014-04-25 2014-04-25 Outpatient [facility] [id number] Access 00:00:00 00:00:00 H, PROVIDER Will garcia 2014-04-25 2014-04-25 Outpatient [facility] [id number] Access 00:00:00 00:00:00 H, PROVIDER [id number] Health [id number] 2014-04-09 2014-04-09 Outpatient [facility] [id number] Access 00:00:00 00:00:00 H, PROVIDER Will garcia 2014-04-09 2014-04-09 Outpatient [facility] [id number] Access 00:00:00 00:00:00 H, PROVIDER [id number] Health [id number] 2014-03-12 2014-03-12 Outpatient [facility] [id number] Access 00:00:00 00:00:00 H, PROVIDER Will garcia 2014-03-12 2014-03-12 Outpatient [facility] [id number] Access 00:00:00 00:00:00 H, PROVIDER [id number] [place] [id number] Results Test Description Test Time Test Comments Results Result Comments Source TSH, THIRD GENERATION 2021-07-23 09:21:17 Test Item Value Reference Range Interpretation Comme nts TSH, THIRD GENERATION (test code = 2821) 2.780 UIU/ML 0.400-4.100 VITAMIN D, 25 [id number] 06:54:58 Test Item Value Reference Range Interpretation Comments VITAMIN D, 25 OH 30 NG/ML SEE BELOW NOTE: 25-H YDROXYVITAMIN D (test code = 4958) ASSAY INC LUDES 25-HYDROXYVITAM IN D2 AND D3. METHOD OLOGY IS CHEMILUMINESCEN T IMMUNOASSAY. INTERPRE TIVE RANGES PEDIATRIC (<17 YEARS) . . . . . . . . . . . NG/ML 20-100A DULT: INSUFFICIENT . . . . . . . . . . . . . . N G/ML <20 SUBOPTI MAL . . . . . . . . . . . . . . . NG/ML 20-29 OPTIMAL . . . . . . . . . . . . . . . . . NG/ML 30-100 LIPID [id number] 06:35:30 Test Item Value Reference Range Interpretation Comments CHOLESTEROL (test 131 MG/DL <200 code = 2210) TRIGLYCERIDES (test 91 MG/DL <150 code = 2232) HDL CHOLESTEROL (test 33 MG/DL >39 L code = 2220) CALC LDL CHOL (test 81 MG/DL <100 NOTE: C ALCULATED LDL code = 2237) IS BASED ON JUAN-LÓPEZ METHOD WHICHINCLUDES ADJUSTABLE TRIGLYCERIDE:VL DL CHOLESTEROL RAT IO.THIS FACTOR VARIES B Y MEASURED TRIGLY CERIDE AND NON-HDLCHOL ESTEROL CONCENTRATIONS WITH INCREASED CALCU LATED LDL SEENIN HIGH ER TRIGLYCERIDE OR LOWER NON-HDL SPECIME NS. FOR MOREINFORMATION , SEE CLIENT ANNOUNCE MENT AT [email or web address] RISK RATIO LDL/HDL 2.45 RATIO <3.55 (test code = 2238) COMPREHENSIVE METABOLIC [id number] 06:35:30 Test Item Value Reference Range Interpretation Comments GLUCOSE (test code = 295 MG/DL 70-99 H 2216) BUN (test code = 77 MG/DL 6-20 H 2207) CREATININE (test 3.31 MG/DL 0.80-1.40 H code = 2214) eGFR (2020 CKD-EPI) 22 ML/MIN/1.73 >60 L (test code = 05842) CALC BUN/CREAT (test 23 RATIO 6-28 code = 2235) SODIUM (test code = 141 MEQ/L 225-744 7887) POTASSIUM (test code 5.4 MEQ/L 3.5-5.4 = 2227) CHLORIDE (test code 100 MEQ/L 95-107 = 221) CARBON DIOXIDE (test 27 MEQ/L 19-31 code = 2206) CALCIUM (test code = 9.6 MG/DL 8.5-10.5 2208) PROTEIN, TOTAL (test 7.5 G/DL 6.1-8.3 code = 2229) ALBUMIN (test code = 4.0 G/DL 3.5-5.2 2200) CALC GLOBULIN (test 3.5 G/DL 1.9-3.7 code = 2240) CALC A/G RATIO (test 1.1 RATIO 1.0-2.6 code = 2234) BILIRUBIN, TOTAL 0.6 MG/DL See_Comment [Automated message] (test code = 2207) The syste m which generated this result transmit josé luis reference range : <=1.2. The refe rence range was not u sed to interpret th is result as normal/abnormal . ALKALINE PHOSPHATASE 132 U/L 40-118 H (test code = 2204) AST (test code = 14 U/L 9-50 2217) ALT (test code = 17 U/L 5-50 2218) URIC [id number] 06:35:30 Test Item Value Reference Range Interpretation Comments URIC ACID (test code = 2233) 11.0 MG/DL 3.7-8.0 H HEMOGLOBIN [id number] 04:52:50 Test Item Value Reference Range Interpretation Comments HEMOGLOBIN A1c (test 11.1 % 4.2-5.6 H [facility] code = 98043) ASSOCIATION IDELINES FOR HGB A1C: PREDIABETES/INC REASED RISK . . . . . . . 5 .7-6.4% DIAGNOSIS O F DIABETES . . . . . . . . . >=6.5% WITH CO NFIRMATION OR APPROPRIATE SYMPTOMS NOTE: ASSAY MA Y BE AFFECTED BY HEMOGLOBINOPATH IES (SICKLE CELL ANEMIA, S-C DISEASE, OTHERS ) OR ARTIFICIALLY LO WERED BY DECREASED RED C ELL SURVIVAL (HEMOLYTIC ANEM IAS, BLOOD LOSS, ETC.) . CONSIDER ALTERNATE TESTI NG OR LABORATORY CONS ULTATION. ALBUMIN/CREATININE RATIO, URINE, [id number] 04:35:05 Test Item Value Reference Range Interpretation Comments CREATININE, URINE, 36.1 MG/DL NOT ESTAB RANDOM (test code = 2072) ALBUMIN, URINE, 103.1 MG/DL NOT ESTAB RANDOM (test code = 43643) CALC 2856 MG/G <30 H Note: ALBUMIN/CREAT, RND Albumin/C reatinine ratio (test code = reference inter jamil 83103) reflects ADA and NKF guidelines. UNLESS OTHERWIS E INDICATED, ALL TESTING PERFORMED [facility], [facility] [address] [place] [address] 4 LABORATORY DIR GENESIS: HANNAH SHARP M.D. CLIA NUMBER [id number] CAP ACCREDITATION N O. [id number] CBC W/AUTO DIFF WITH [id number] 03:41:46 Test Item Value Reference Range Interpretation Comments WBC (test code = 9.0 K/UL 3.5-11.0 1001) RBC (test code = 4.57 M/UL 4.50-6.10 1002) HEMOGLOBIN (test code 13.5 G/DL 13.5-17.0 = 1003) HEMATOCRIT (test code 42.4 % 40.0-51.0 = 1004) MCV (test code = 92.8 fL 80.0-99.0 1005) MCH (test code = 29.5 PG 25.0-33.0 1006) MCHC (test code = 31.8 G/DL 31.0-36.0 1007) RDW (test code = 13.5 % 11.5-15.0 1038) NEUTROPHILS (test 73.3 % code = 1008) LYMPHOCYTES (test 14.0 % code = 1010) MONOCYTES (test code 7.2 % = 1011) EOSINOPHILS (test 3.7 % code = 1012) BASOPHILS (test code 0.8 % = 1013) IMMATURE GRANULOCYTES 1.0 % (test code = 1036) NUCLEATED RBCS (test 0.0 /100 See_Comment [Autom ated code = 1065) WBC'S message] The sy stem which generated this result transmitted reference range : 0.0. The refere nce range was not u sed to interpret th is result as normal/abnormal . PLATELET COUNT (test 222 K/UL 130-400 code = 1015) ABSOLUTE NEUTROPHILS 6.61 K/UL 1.50-7.50 (test code = 1066) ABSOLUTE LYMPHOCYTES 1.26 K/UL 1.00-4.00 (test code = 1067) ABSOLUTE MONOCYTES 0.65 K/UL 0.20-1.00 (test code = 1068) ABSOLUTE EOSINOPHILS 0.33 K/UL 0.00-0.50 (test code = 1040) ABSOLUTE BASOPHILS 0.07 K/UL 0.00-0.20 (test code = 1069) ABS IMMATURE 0.09 K/UL 0.00-0.10 GRANULOCYTES (test code = 1020) ABS NUCLEATED RBCS 0.00 K/UL 0.00-0.11 (test code = 22043) XR FOOT LEFT COMPLETE 3 [id number] 11:37:33 [facility] : 1975 Sex: MEXAMINATION:XR FOOT LEFT COMPLETE 3 VIEWSCLINICAL INDICATION:Male, 45 [...] No acute fracture or bone erosion is identified.Electronically signed by: Best Mendieta MD 05/05/2021 11:37 AM [facility] [id number] Description: Albumin/Creatinine Ratio,Urine 2021-01-30 17:11:00 Test Item Value Reference Range Interpretation Comments Creatinine, Urine 54.5 mg/dL Not Estab. (test code = 2161-8) Albumin, Urine 2814.8 ug/mL Not Estab. Results confi rmed (test code = ondilution.<br/ >
P [id number]) erformed by:
[facility] [place] ([place])

Alb/Creat Ratio 5165 mg/gcreat 0-29 H (test code = Normal: 9318-7) 0 - 29 Moderately incr eased: 30 - 300 Severely increa sed: >300

Perfo rmed by:
[facility] ([place])

[facility] Description: Albumin/Creatinine Ratio,[id number] 17:11:00 Test Item Value Reference Range Interpretation Comments Creatinine, Urine 54.5 mg/dL Not Estab. (test code = 2161-8) Albumin, Urine 2814.8 ug/mL Not Estab. Results confi rmed (test code = ondilution.<br/ >
P 08372-2) erformed by:
[facility] [place] ([place])

Alb/Creat Ratio 5165 mg/gcreat 0-29 H (test code = Normal: 9318-7) 0 - 29 Moderately incr eased: 30 - 300 Severely increa sed: >300

[facility]:
[facility]

[facility] Description: Albumin/Creatinine Ratio,[id number] 17:11:00 Test Item Value Reference Range Interpretation Comments Creatinine, Urine 54.5 mg/dL Not Estab. (test code = 2161-8) Albumin, Urine 2814.8 ug/mL Not Estab. Results confi rmed (test code = ondilution.<br/ >
P 15141-3) [facility]:
[facility]

Alb/Creat Ratio 5165 mg/gcreat 0-29 H (test code = Normal: 9318-7) 0 - 29 Moderately incr eased: 30 - 300 Severely increa sed: >300

Perfo rmed by:
[facility]

[facility] Description: Albumin/Creatinine Ratio,[id number] 17:11:00 Test Item Value Reference Range Interpretation Comments Creatinine, Urine 54.5 mg/dL Not Estab. (test code = 2161-8) Albumin, Urine 2814.8 ug/mL Not Estab. Results confi rmed (test code = ondilution.<br/ >
P 80604-6) erformed by:
[facility] ([place])

Alb/Creat Ratio 5165 mg/gcreat 0-29 H (test code = Normal: 9318-7) 0 - 29 Moderately incr eased: 30 - 300 Severely increa sed: >300

Perfo rmed by:
[facility]

[facility] Description: Albumin/Creatinine Ratio,[id number] 17:11:00 Test Item Value Reference Range Interpretation Comments Creatinine, Urine 54.5 mg/dL Not Estab. (test code = 2161-8) Albumin, Urine 2814.8 ug/mL Not Estab. Results confi rmed (test code = ondilution.<br/ >
P 74715-0) erformed by:
[facility] [place] ([place])

Alb/Creat Ratio 5165 mg/gcreat 0-29 H (test code = Normal: 9318-7) 0 - 29 Moderately incr eased: 30 - 300 Severely increa sed: >300

Perfo rmed by:
[facility] [place] ([place])

[facility] Description: Albumin/Creatinine Ratio,[id number] 17:11:00 Test Item Value Reference Range Interpretation Comments Creatinine, Urine 54.5 mg/dL Not Estab. (test code = 2161-8) Albumin, Urine 2814.8 ug/mL Not Estab. Results confi rmed (test code = ondilution.<br/ >
P 99711-3) erformed by:
[facility] [place] ([place])

Alb/Creat Ratio 5165 mg/gcreat 0-29 H (test code = Normal: 9318-7) 0 - 29 Moderately incr eased: 30 - 300 Severely increa sed: >300

Perfo rmed by:
[facility]

[facility] Description: Albumin/Creatinine Ratio,[id number] 17:11:00 Test Item Value Reference Range Interpretation Comments Creatinine, Urine 54.5 mg/dL Not Estab. (test code = 2161-8) Albumin, Urine 2814.8 ug/mL Not Estab. Results confi rmed (test code = ondilution.<br/ >
P 60950-3) erformed by:
[facility] [place] ([place])

Alb/Creat Ratio 5165 mg/gcreat 0-29 H (test code = Normal: 9318-7) 0 - 29 Moderately incr eased: 30 - 300 Severely increa sed: >300

Perfo rmed by:
[facility] [place] ([place])

[facility] Description: Albumin/Creatinine Ratio,[id number] 17:11:00 Test Item Value Reference Range Interpretation Comments Creatinine, Urine 54.5 mg/dL Not Estab. (test code = 2161-8) Albumin, Urine 2814.8 ug/mL Not Estab. Results confi rmed (test code = ondilution.<br/ >
P 97438-7) erformed [facility]:
[facility] ([facility]

Alb/Creat Ratio 5165 mg/gcreat 0-29 H (test code = Normal: 9318-7) 0 - 29 Moderately incr eased: 30 - 300 Severely increa sed: >300

Perfo rmed by:
[facility] [place] ([place])

[facility] Description: Albumin/Creatinine Ratio,[id number] 17:11:00 Test Item Value Reference Range Interpretation Comments Creatinine, Urine 54.5 mg/dL Not Estab. (test code = 2161-8) Albumin, Urine 2814.8 ug/mL Not Estab. Results confi rmed (test code = ondilution.<br/ >
P 58313-8) erformed by:
[facility] [place] ([place])

Alb/Creat Ratio 5165 mg/gcreat 0-29 H (test code = Normal: 9318-7) 0 - 29 Moderately incr eased: 30 - 300 Severely increa sed: >300

Perfo rmed by:
[facility] [place] (HD)

[facility] Description: Albumin/Creatinine Ratio,[id number] 17:11:00 Test Item Value Reference Range Interpretation Comments Creatinine, Urine 54.5 mg/dL Not Estab. (test code = 2161-8) Albumin, Urine 2814.8 ug/mL Not Estab. Results confi rmed (test code = ondilution.<br/ >
P 58810-2) erformed by:
[facility] [place] ([place])

Alb/Creat Ratio 5165 mg/gcreat 0-29 H (test code = Normal: 9318-7) 0 - 29 Moderately incr eased: 30 - 300 Severely increa sed: >300

Perfo rmed by:
[facility] ()

[facility] Description: Albumin/Creatinine Ratio,[id number] 17:11:00 Test Item Value Reference Range Interpretation Comments Creatinine, Urine 54.5 mg/dL Not Estab. (test code = 2161-8) Albumin, Urine 2814.8 ug/mL Not Estab. Results confi rmed (test code = ondilution.<br/ >
P 90075-2) erformed by:
[facility] [place] ()

Alb/Creat Ratio 5165 mg/gcreat 0-29 H (test code = Normal: 9318-7) 0 - 29 Moderately incr eased: 30 - 300 Severely increa sed: >300

Perfo rmed by:
[facility] ()

[facility] Description: Albumin/Creatinine Ratio,[id number] 17:11:00 Test Item Value Reference Range Interpretation Comments Creatinine, Urine 54.5 mg/dL Not Estab. (test code = 2161-8) Albumin, Urine 2814.8 ug/mL Not Estab. Results confi rmed (test code = ondilution.<br/ >
P 58241-1) erformed by:
[facility] [place] ([place])

Alb/Creat Ratio 5165 mg/gcreat 0-29 H (test code = Normal: 9318-7) 0 - 29 Moderately incr eased: 30 - 300 Severely increa sed: >300

Perfo [facility]med by:
[facility] ([facility])

[facility] Description: Natriuretic peptide B [Mass/volume] in Serum or [id number] 13:36:00 Test Item Value Reference Range Interpretation Comments B-Type Natriuretic Peptide (test 396.8 pg/mL 0.0-100.0 H code = 93924-8) [facility] Description: Natriuretic peptide B [Mass/volume] in Serum or [id number] 13:36:00 Test Item Value Reference Range Interpretation Comments B-Type Natriuretic Peptide (test 396.8 pg/mL 0.0-100.0 H code = 98151-4) [facility] Description: Natriuretic peptide B [Mass/volume] in Serum or [id number] 13:36:00 Test Item Value Reference Range Interpretation Comments B-Type Natriuretic Peptide (test 396.8 pg/mL 0.0-100.0 H code = 61471-5) [facility] Description: Natriuretic peptide B [Mass/volume] in Serum or [id number] 13:36:00 Test Item Value Reference Range Interpretation Comments B-Type Natriuretic Peptide (test 396.8 pg/mL 0.0-100.0 H code = 57842-1) [facility] Description: Natriuretic peptide B [Mass/volume] in Serum or [id number] 13:36:00 Test Item Value Reference Range Interpretation Comments B-Type Natriuretic Peptide (test 396.8 pg/mL 0.0-100.0 H code = 33724-1) [facility]: Natriuretic peptide B [Mass/volume] in Serum or [id number] 13:36:00 Test Item Value Reference Range Interpretation Comments B-Type Natriuretic Peptide (test 396.8 pg/mL 0.0-100.0 H code = 28374-0) [facility] Description: Natriuretic peptide B [Mass/volume] in Serum or [id number] 13:36:00 Test Item Value Reference Range Interpretation Comments B-Type Natriuretic Peptide (test 396.8 pg/mL 0.0-100.0 H code = 87157-7) [facility] Description: Natriuretic peptide B [Mass/volume] in Serum or [id number] 13:36:00 Test Item Value Reference Range Interpretation Comments B-Type Natriuretic Peptide (test 396.8 pg/mL 0.0-100.0 H code = 44202-0) [facility] Description: Natriuretic peptide B [Mass/volume] in Serum or [id number] 13:36:00 Test Item Value Reference Range Interpretation Comments B-Type Natriuretic Peptide (test 396.8 pg/mL 0.0-100.0 H code = 73227-4) [facility] Description: Natriuretic peptide B [Mass/volume] in Serum or [id number] 13:36:00 Test Item Value Reference Range Interpretation Comments B-Type Natriuretic Peptide (test 396.8 pg/mL 0.0-100.0 H code = 42127-1) [facility] Description: Natriuretic peptide B [Mass/volume] in Serum or [id number] 13:36:00 Test Item Value Reference Range Interpretation Comments B-Type Natriuretic Peptide (test 396.8 pg/mL 0.0-100.0 H code = 34366-9) [facility] Description: Natriuretic peptide B [Mass/volume] in Serum or [id number] 13:36:00 Test Item Value Reference Range Interpretation Comments B-Type Natriuretic Peptide (test 396.8 pg/mL 0.0-100.0 H code = 60344-5) [facility] Description: Hemoglobin A1c/Hemoglobin.total in Blood 2021-01-30 12:27:00 Test Item Value Reference Range Interpretation Comments Hemoglobin A1c (test code 8.7 % 4.8-5.6 H = 4548-4) . Prediabetes: 5. 7 - 6.4 Diabetes : >6.4 Glycemic control for adults with diabetes: <7.0

P erformed by:
[facility] ([place])

[facility] Description: Hemoglobin A1c/Hemoglobin.total in Blood 2021-01-30 12:27:00 [...]

P erformed by:
[facility] [place] ()

[facility] Description: Hemoglobin A1c/Hemoglobin.total in Blood 2021-01-30 12:27:00 Test Item Value Reference Range Interpretation Comments Hemoglobin A1c (test code 8.7 % 4.8-5.6 H = 4548-4) . Prediabetes: 5. 7 - 6.4 Diabetes : >6.4 Glycemic control for adults with diabetes: <7.0

P erformed by:
[facility] [place] ()

[facility] Description: Hemoglobin A1c/Hemoglobin.total in Blood 2021-01-30 12:27:00 Test Item Value Reference Range Interpretation Comments Hemoglobin A1c (test code 8.7 % 4.8-5.6 H = 4548-4) . Prediabetes: 5. 7 - 6.4 Diabetes : >6.4 Glycemic control for adults with diabetes: <7.0

P erformed by:
[facility] [place] ()

[facility] Description: Hemoglobin A1c/Hemoglobin.total in Blood 2021-01-30 12:27:00 Test Item Value Reference Range Interpretation Comments Hemoglobin A1c (test code 8.7 % 4.8-5.6 H = 4548-4) . Prediabetes: 5. 7 - 6.4 Diabetes : >6.4 Glycemic control for adults with diabetes: <7.0

P erformed by:
[facility] [place] ()

[facility] Description: Hemoglobin A1c/Hemoglobin.total in Blood 2021-01-30 12:27:00 [...]

P erformed by:
[facility] [place] ([place])

[facility] Description: Hemoglobin A1c/Hemoglobin.total in Blood 2021-01-30 12:27:00 Test Item Value Reference Range Interpretation Comments Hemoglobin A1c (test code 8.7 % 4.8-5.6 H = 4548-4) . Prediabetes: 5. 7 - 6.4 Diabetes : >6.4 Glycemic control for adults with diabetes: <7.0

P erformed by:
[facility] ([place])

[facility] Description: C reactive protein [Mass/volume] in Serum or [id number] 04:53:00 Test Item Value Reference Range Interpretation Comments C-Reactive Protein, Quant (test code 13 mg/L 0-10 H = 1987-07) [facility] Description: C reactive protein [Mass/volume] in Serum or [id number] 04:53:00 Test Item Value Reference Range Interpretation Comments C-Reactive Protein, Quant (test code 13 mg/L 0-10 H = 1987-07) [facility] Description: C reactive protein [Mass/volume] in Serum or [id number] 04:53:00 Test Item Value Reference Range Interpretation Comments C-Reactive Protein, Quant (test code 13 mg/L 0-10 H = 1987-07) [facility] Description: C reactive protein [Mass/volume] in Serum or [id number] 04:53:00 Test Item Value Reference Range Interpretation Comments C-Reactive Protein, Quant (test code 13 mg/L 0-10 H = 1987-07) [facility] Description: C reactive protein [Mass/volume] in Serum or [id number] 04:53:00 Test Item Value Reference Range Interpretation Comments C-Reactive Protein, Quant (test code 13 mg/L 0-10 H = 1987-07) [facility] Description: C reactive protein [Mass/volume] in Serum or [id number] 04:53:00 Test Item Value Reference Range Interpretation Comments C-Reactive Protein, Quant (test code 13 mg/L 0-10 H = 1987-07) [facility] Description: C reactive protein [Mass/volume] in Serum or [id number] 04:53:00 Test Item Value Reference Range Interpretation Comments C-Reactive Protein, Quant (test code 13 mg/L 0-10 H = 1987-07) [facility] Description: C reactive protein [Mass/volume] in Serum or [id number] 04:53:00 Test Item Value Reference Range Interpretation Comments C-Reactive Protein, Quant (test code 13 mg/L 0-10 H = 1987-07) [facility] Description: C reactive protein [Mass/volume] in Serum or [id number] 04:53:00 Test Item Value Reference Range Interpretation Comments C-Reactive Protein, Quant (test code 13 mg/L 0-10 H = 1987-07) [facility] Description: C reactive protein [Mass/volume] in Serum or [id number] 04:53:00 Test Item Value Reference Range Interpretation Comments C-Reactive Protein, Quant (test code 13 mg/L 0-10 H = 1987-07) [facility] Description: C reactive protein [Mass/volume] in Serum or [id number] 04:53:00 Test Item Value Reference Range Interpretation Comments C-Reactive Protein, Quant (test code 13 mg/L 0-10 H = 1987-07) [facility] Description: C reactive protein [Mass/volume] in Serum or [id number] 04:53:00 Test Item Value Reference Range Interpretation Comments C-Reactive Protein, Quant (test code 13 mg/L 0-10 H = 1987-07) [facility] Description: 25-hydroxyvitamin D3 [Mass/volume] in Serum or [id number] 03:48:00 Test Item Value Reference Range Interpretation Comments Vitamin D, 17.6 ng/mL 30.0-100.0 L Vitamin D defic iency has 25-Hydroxy (test been define d by the code = 76285-7) [place] [employer] and an Endocrine So ciety practice guidel ine as alevel of serum 25-OH vitamin D less than 20 ng/mL (1,2).The Endocrine Society went on to further define vitamin Dinsufficiency as a level between 21 and 29 ng/mL (2).1. IOM (Ins titute of Medicine). 2010 . Dietary reference int akes for calcium and D. [facility]: The [employer] .2. Ela Oliveros, Stephane EMERSON, et al. Evaluatio n, treatment, and prevention of vitamin D deficiency: an Endocrine Society clinica l practice guideline. [place] EM. 2010; 96(7):1911-30.< br/>
P erformed by:
[facility] ([place])

[facility] Description: 25-hydroxyvitamin D3 [Mass/volume] in Serum or [id number] 03:48:00 Test Item Value Reference Range Interpretation Comments Vitamin D, 17.6 ng/mL 30.0-100.0 L Vitamin D defic iency has 25-Hydroxy (test been define d by the code = 35503-2) [place] [employer] and an Endocrine So [facility] practice guidel ine as alevel of serum 25-OH vitamin D less than 20 ng/mL (1,2).The Endocrine Society went on to further define vitamin Dinsufficiency as a level between 21 and 29 ng/mL (2).1. IOM (Ins titute of Medicine). 2010 . Dietary reference int akes for calcium and D. [facility]: The [employer] .2. Ela Oliveros, Stephane EMERSON, et al. Evaluatio n, treatment, and prevention of vitamin D deficiency: an Endocrine Society clinica l practice guideline. EM. 2010; 96(7):1911-30.< br/>
P erformed by:
[facility] ([place])

[facility] Description: 25-hydroxyvitamin D3 [Mass/volume] in Serum or [id number] 03:48:00 Test Item Value Reference Range Interpretation Comments Vitamin D, 17.6 ng/mL 30.0-100.0 L Vitamin D defic iency has 25-Hydroxy (test been define d by the code = 34514-5) [place] [employer] and an Endocrine So ciety practice guidel ine as alevel of serum 25-OH vitamin D less than 20 ng/mL (1,2).The Endocrine Society went on to further define vitamin Dinsufficiency as a level between 21 and 29 ng/mL (2).1. IOM (Ins uc healthute of Medicine). 2010 . Dietary reference int akes for calcium and D. [facility]: The [employer] .2. Ela Oliveros, Stephane EMERSON, et al. Evaluatio n, treatment, and prevention of vitamin D deficiency: an Endocrine Society clinica l practice guideline. [place] EM. 2010; 96(7):191-.< br/>
P erformed by:
[facility]aur (HD)

[facility] Description: 25-hydroxyvitamin D3 [Mass/volume] in Serum or [id number] 03:48:00 Test Item Value Reference Range Interpretation Comments Vitamin D, 17.6 ng/mL 30.0-100.0 L Vitamin D defic iency has 25-Hydroxy (test been define d by the code = 67834-6) [place] [facility] [place] and an Endocrine So [facility] guidel ine as alevel of serum 25-OH vitamin D less than 20 ng/mL (1,2).The Endocrine Society went on to further define vitamin Dinsufficiency as a level between 21 and 29 ng/mL (2).1. IOM (Ins [facility] of Medicine). 2010 . Dietary reference int akes for calcium and D. [facility]: The [employer] .2. Ela Oliveros, Stephane EMERSON, et al. Evaluatio n, treatment, and prevention of vitamin D deficiency: an Endocrine Society clinica l practice guideline. [place] EM. 2010; 96(7):191-.< br/>
P erformed by:
[facility] K[facility] (HD)

[facility] Description: 25-hydroxyvitamin D3 [Mass/volume] in Serum or [id number] 03:48:00 Test Item Value Reference Range Interpretation Comments Vitamin D, 17.6 ng/mL 30.0-100.0 L Vitamin D defic iency has 25-Hydroxy (test been define d by the code = 81204-5) [place] [facility] [place] and an Endocrine So [facility] guidel ine as alevel of serum 25-OH vitamin D less than 20 ng/mL (1,2).The Endocrine Society went on to further define vitamin Dinsufficiency as a level between 21 and 29 ng/mL (2).1. IOM (Ins [place]). 2010 . Dietary reference int akes for calcium and D. [facility]: The [employer] .2. Ela Oliveros, Stephane EMERSON, et al. Evaluatio n, treatment, and prevention of vitamin D deficiency: an Endocrine Society clinica l practice guideline. EM. 2010; 96(7):191-.< br/>
P erformed by:
[facility] (HD)

[facility] Description: 25-hydroxyvitamin D3 [Mass/volume] in Serum or [id number] 03:48:00 Test Item Value Reference Range Interpretation Comments Vitamin D, 17.6 ng/mL 30.0-100.0 L Vitamin D defic iency has 25-Hydroxy (test been define d by the code = 44105-4) [place] [employer] [place] and an Endocrine So [facility] guidel ine as alevel of serum 25-OH vitamin D less than 20 ng/mL (1,2).The Endocrine Society went on to further define vitamin Dinsufficiency as a level between 21 and 29 ng/mL (2).1. IOM (Ins [place] of Medicine). 2010 . Dietary reference int akes for calcium and D. [facility]: The [employer] .2. Ela Oliveros, Stephane EMERSON, et al. Evaluatio n, treatment, and prevention of vitamin D deficiency: an Endocrine Society clinica l practice guideline. EM. 2010; 96(7):191-.< br/>
P erformed by:
[facility] (HD)

[facility] Description: 25-hydroxyvitamin D3 [Mass/volume] in Serum or [id number] 03:48:00 Test Item Value Reference Range Interpretation Comments Vitamin D, 17.6 ng/mL 30.0-100.0 L Vitamin D defic iency has 25-Hydroxy (test been define d by the code = 51554-6) [place] [employer] [place] and an Endocrine So [facility] guidel ine as alevel of serum 25-OH vitamin D less than 20 ng/mL (1,2).The Endocrine Society went on to further define vitamin Dinsufficiency as a level between 21 and 29 ng/mL (2).1. IOM (Ins [place] of Medicine). 2010 . Dietary reference int akes for calcium and D. [place]: The [employer] .2. Ela Oliveros, Stephane EMERSON, et al. Evaluatio n, treatment, and prevention of vitamin D deficiency: an Endocrine Society clinica l practice guideline. EM. 2010; 96(7):1911-30.< br/>
P erformed by:
[facility] [place] ()

[facility]: 25-hydroxyvitamin D3 [Mass/volume] in Serum or [id number] 03:48:00 Test Item Value Reference Range Interpretation Comments Vitamin D, 17.6 ng/mL 30.0-100.0 L Vitamin D defic iency has 25-Hydroxy (test been define d by the code = 65053-6) [place] [employer] [place] and an Endocrine So [facility] guidel ine as alevel of serum 25-OH vitamin D less than 20 ng/mL (1,2).The Endocrine Society went on to further define vitamin Dinsufficiency as a level between 21 and 29 ng/mL (2).1. IOM (Ins [employer] of Medicine). 2010 . Dietary reference int akes for calcium and D. [place]: The [employer] .2. Ela Oliveros, Stephane EMERSON, et al. Evaluatio n, treatment, and prevention of vitamin D deficiency: an Endocrine Society clinica l practice guideline. EM. 2010; 96(7):1911-30.< br/>
P erformed by:
[facility] (HD)

[facility] Description: 25-hydroxyvitamin D3 [Mass/volume] in Serum or [id number] 03:48:00 Test Item Value Reference Range Interpretation Comments Vitamin D, 17.6 ng/mL 30.0-100.0 L Vitamin D defic iency has 25-Hydroxy (test been define d by the code = 84840-6) [place] [employer] [place] and an Endocrine So [facility] guidel ine as alevel of serum 25-OH vitamin D less than 20 ng/mL (1,2).The Endocrine Society went on to further define vitamin Dinsufficiency as a level between 21 and 29 ng/mL (2).1. IOM (Ins titute of Medicine). 2010 . Dietary reference int akes for calcium and D. [place]: The [employer] .2. Ela Oliveros, Stephane EMERSON, et al. Evaluatio n, treatment, and prevention of vitamin D deficiency: an Endocrine Society clinica l practice guideline. EM. 2010; 96(7):1911-30.< br/>
P erformed by:
[facility] (HD)

[facility] Description: 25-hydroxyvitamin D3 [Mass/volume] in Serum or [id number] 03:48:00 Test Item Value Reference Range Interpretation Comments Vitamin D, 17.6 ng/mL 30.0-100.0 L Vitamin D defic iency has 25-Hydroxy (test been define d by the code = 12320-1) [place] [employer] [place] and an Endocrine So [facility] guidel ine as alevel of serum 25-OH vitamin D less than 20 ng/mL (1,2).The Endocrine Society went on to further define vitamin Dinsufficiency as a level between 21 and 29 ng/mL (2).1. IOM (Ins titute of Medicine). 2010 . Dietary reference int akes for calcium and D. [place]: The [employer] .2. Ela Oliveros, Stephane EMERSON, et al. Evaluatio n, treatment, and prevention of vitamin D deficiency: an Endocrine Society clinica l practice guideline. EM. 2010; 96(7):1911-30.< br/>
P erformed by:
[facility] (HD)

[facility] Description: 25-hydroxyvitamin D3 [Mass/volume] in Serum or [id number] 03:48:00 Test Item Value Reference Range Interpretation Comments Vitamin D, 17.6 ng/mL 30.0-100.0 L Vitamin D defic iency has 25-Hydroxy (test been define d by the code = 48232-4) [place] [employer] [place] and an Endocrine So [facility] guidel ine as alevel of serum 25-OH vitamin D less than 20 ng/mL (1,2).The Endocrine Society went on to further define vitamin Dinsufficiency as a level between 21 and 29 ng/mL (2).1. IOM (Ins titute of Medicine). 2010 . Dietary reference int akes for calcium and D. [place]: The [employer] .2. Dileep MF, Ela SANTA, Stephane blake EMERSON, et al. Evaluatio n, treatment, and prevention of vitamin D deficiency: an Endocrine Society clinica l practice guideline. EM. 2010; 96(7):1911-30.< br/>
P erformed by:
[facility] (HD)

[facility] Description: 25-hydroxyvitamin D3 [Mass/volume] in Serum or [id number] 03:48:00 Test Item Value Reference Range Interpretation Comments Vitamin D, 17.6 ng/mL 30.0-100.0 L Vitamin D defic iency has 25-Hydroxy (test been define d by the code = 45728-4) [place] [employer] [place] and an Endocrine So [facility] guidel ine as alevel of serum 25-OH vitamin D less than 20 ng/mL (1,2).The Endocrine Society went on to further define vitamin Dinsufficiency as a level between 21 and 29 ng/mL (2).1. IOM (Ins titute of Medicine). 2010 . Dietary reference int akes for calcium and D. [place]: The [employer] .2. Dileep MF, Ela [place], Stephane blake EMERSON, et al. Evaluatio n, treatment, and prevention of vitamin D deficiency: an Endocrine Society clinica l practice guideline. [place] EM. 2010; 96(5):9251-30.< br/>
P erformed by:
[facility] K[facility] (HD)

[facility] Description: Erythrocyte sedimentation rate by Westergren [id number] 03:06:00 Test Item Value Reference Range Interpretation Comments Sedimentation Rate-Westergren (test 27 mm/hr 0-15 H code = 4537-7) [facility] Description: Erythrocyte sedimentation rate by Westergren [id number] 03:06:00 Test Item Value Reference Range Interpretation Comments Sedimentation Rate-Westergren (test 27 mm/hr 0-15 H code = 4537-7) [facility] Description: Erythrocyte sedimentation rate by Westergren [id number] 03:06:00 Test Item Value Reference Range Interpretation Comments Sedimentation Rate-Westergren (test 27 mm/hr 0-15 H code = 4537-7) [facility] Description: Erythrocyte sedimentation rate by Westergren [id number] 03:06:00 Test Item Value Reference Range Interpretation Comments Sedimentation Rate-Westergren (test 27 mm/hr 0-15 H code = 4537-7) [facility] Description: Erythrocyte sedimentation rate by Westergren [id number] 03:06:00 Test Item Value Reference Range Interpretation Comments Sedimentation Rate-Westergren (test 27 mm/hr 0-15 H code = 4537-7) [facility] Description: Erythrocyte sedimentation rate by Westergren [id number] 03:06:00 Test Item Value Reference Range Interpretation Comments Sedimentation Rate-Westergren (test 27 mm/hr 0-15 H code = 4537-7) [facility] Description: Erythrocyte sedimentation rate by Westergren [id number] 03:06:00 Test Item Value Reference Range Interpretation Comments Sedimentation Rate-Westergren (test 27 mm/hr 0-15 H code = 4537-7) [facility] Description: Erythrocyte sedimentation rate by Westergren [id number] 03:06:00 Test Item Value Reference Range Interpretation Comments Sedimentation Rate-Westergren (test 27 mm/hr 0-15 H code = 4537-7) [facility] Description: Erythrocyte sedimentation rate by Westergren [id number] 03:06:00 Test Item Value Reference Range Interpretation Comments Sedimentation Rate-Westergren (test 27 mm/hr 0-15 H code = 4537-7) [facility] Description: Erythrocyte sedimentation rate by Westergren [id number] 03:06:00 Test Item Value Reference Range Interpretation Comments Sedimentation Rate-Westergren (test 27 mm/hr 0-15 H code = 4537-7) [facility] Description: Erythrocyte sedimentation rate by Westergren [id number] 03:06:00 Test Item Value Reference Range Interpretation Comments Sedimentation Rate-Westergren (test 27 mm/hr 0-15 H code = 4537-7) [facility] Description: Erythrocyte sedimentation rate by Westergren [id number] 03:06:00 Test Item Value Reference Range Interpretation Comments Sedimentation Rate-Westergren (test 27 mm/hr 0-15 H code = 4537-7) [facility] Description: Comp. Metabolic Panel (14)2021-01-30 02:57:00 Test Item Value Reference Range Interpretation Comments Glucose (test code 256 mg/dL 65-99 H = 2345-7) BUN (test code = 57 mg/dL 6-24 H 3094-0) Creatinine (test 2.38 mg/dL 0.76-1.27 H code = 2160-0) eGFR If NonAfricn 31 >59 L Am (test code = mL/min/1.73 06411-0) eGFR If Africn Am 36 >59 L In accor dance with (test code = mL/min/1.73 recommendations from 24559-9) the NKF-ASN Tas k force, [facility] [place] is in the process of updating its eG FR calculation to the 2020 CKD-EPI creatinine equa tion that estimates kidney function witho ut a race variable.
< br/>Per formed by:
[facility] Kaur (HD)

BUN/Creatinine 24 9-20 H Ratio (test code = 3097-3) Sodium (test code = 139 mmol/L 055-162 7536-2) Potassium (test 4.9 mmol/L 3.5-5.2 code = 2823-3) Chloride (test code 100 mmol/L 96-106 = 2075-0) Carbon Dioxide, 23 mmol/L 20-29 Total (test code = 2027-9) Calcium (test code 9.0 mg/dL 8.7-10.2 = 44035-2) Protein, Total 6.5 g/dL 6.0-8.5 (test code = 2885-2) Albumin (test code 3.4 g/dL 4.0-5.0 L = 1751-7) Globulin, Total 3.1 g/dL 1.5-4.5 (test code = 64690-5) A/G Ratio (test 1.1 1.2-2.2 L code = 1759-0) Bilirubin, Total 0.4 mg/dL 0.0-1.2 (test code = 1974-2) Alkaline 124 IU/L 44-121 H Phosphatase (test Pl ease note code = 6768-6) reference int erval change
<b r/>Perf ormed by:
[facility] ([place])

AST (SGOT) (test 17 IU/L 0-40 code = 1920-8) ALT (SGPT) (test 23 IU/L 0-44 code = 1742-6) [facility] Description: Phosphate [Mass/volume] in Serum or Plasma 2021-01-30 02:57:00 Test Item Value Reference Range Interpretation Comments Phosphorus (test code = 2777-1) 4.5 mg/dL 2.8-4.1 H [facility] Description: Magnesium [Mass/volume] in Serum or Plasma 2021-01-30 02:57:00 Test Item Value Reference Range Interpretation Comments Magnesium (test code = 77945-2) 1.8 mg/dL 1.6-2.3 [facility] Description: Microscopic [id number] 02:57:00 Test Item Value Reference Range Interpretation Comments WBC (test code = 5821-4) None seen 0-5 RBC (test code = 87324-9) None seen 0-2 Epithelial Cells (non renal) (test None seen 0-10 code = 5787-7) Epithelial Cells (renal) (test code = 17167-9) Casts (test code = 27357-8) None seen None seen Cast Type (test code = 91964-4) Crystals (test code = 5783-6) Crystal Type (test code = 5782-8) Mucus Threads (test code = 8247-9) Bacteria (test code = 5769-5) None seen None seen/Few Yeast (test code = 5822-2) Trichomonas (test code = 5813-1) Comment (test code = 71265-8) [facility] Description: Urate [Mass/volume] in Serum or [id number] 02:57:00 Test Item Value Reference Range Interpretation Comments Uric Acid (test 11.5 mg/dL 3.8-8.4 H code = 3084-1) Therapeutic t arget for gout patients: <6.0

P erformed by:
[facility] (HD)

[facility] Description: Comp. Metabolic Panel (14)2021-01-30 02:57:00 Test Item Value Reference Range Interpretation Comments Glucose (test code 256 mg/dL 65-99 H = 2345-7) BUN (test code = 57 mg/dL 6-24 H 3094-0) Creatinine (test 2.38 mg/dL 0.76-1.27 H code = 2160-0) eGFR If NonAfricn 31 >59 L Am (test code = mL/min/1.73 54996-6) eGFR If Africn Am 36 >59 L In accor dance with (test code = mL/min/1.73 recommendations from 92227-2) the NKF-ASN Tas k force, [facility] is in the process of updating its eG FR calculation to the 2020 CKD-EPI creatinine equa tion that estimates kidney function witho ut a race variable.
< br/>Per formed by:
[facility] (HD)

BUN/Creatinine 24 9-20 H Ratio (test code = 3097-3) Sodium (test code = 139 mmol/L 994-517 9274-2) Potassium (test 4.9 mmol/L 3.5-5.2 code = 2823-3) Chloride (test code 100 mmol/L 96-106 = 2075-0) Carbon Dioxide, 23 mmol/L 20-29 Total (test code = 2027-) Calcium (test code 9.0 mg/dL 8.7-10.2 = 37158-4) Protein, Total 6.5 g/dL 6.0-8.5 (test code = 2885-2) Albumin (test code 3.4 g/dL 4.0-5.0 L = 1751-7) Globulin, Total 3.1 g/dL 1.5-4.5 (test code = 34453-7) A/G Ratio (test 1.1 1.2-2.2 L code [...] Range Interpretation Comments Magnesium (test code = 42304-5) 1.8 mg/dL 1.6-2.3 [facility] Description: Microscopic [id number] 02:57:00 Test Item Value Reference Range Interpretation Comments WBC (test code = 5821-4) None seen 0-5 RBC (test code = 81416-9) None seen 0-2 Epithelial Cells (non renal) (test None seen 0-10 code = 5787-7) Epithelial Cells (renal) (test code = 20152-3) Casts (test code = 93001-3) None seen None seen Cast Type (test code = 63925-4) Crystals (test code = 5783-6) Crystal Type (test code = 5782-8) Mucus Threads (test code = 8247-9) Bacteria (test code = 5769-5) None seen None seen/Few Yeast (test code = 5822-2) Trichomonas (test code = 5813-1) Comment (test code = 29834-3) [facility] Description: Urate [Mass/volume] in Serum or [id number] 02:57:00 Test Item Value Reference Range Interpretation Comments Uric Acid (test 11.5 mg/dL 3.8-8.4 H code = 3084-1) Therapeutic t arget for gout patients: <6.0

P erformed by:
[facility] ([place])

[facility] Description: Comp. Metabolic Panel (14)2021-01-30 02:57:00 Test Item Value Reference Range Interpretation Comments Glucose (test code 256 mg/dL 65-99 H = 2345-7) BUN (test code = 57 mg/dL 6-24 H 3094-0) Creatinine (test 2.38 mg/dL 0.76-1.27 H code = 2160-0) eGFR If NonAfricn 31 >59 L Am (test code = mL/min/1.73 78816-4) eGFR If Africn Am 36 >59 L In accor dance with (test code = mL/min/1.73 recommendations from 09006-9) the NKF-ASN Tas k force, [facility] is in the process of updating its eG FR calculation to the 2020 CKD-EPI creatinine equa tion that estimates kidney function witho ut a race variable.
< br/>Per formed by:
[facility] (HD)

BUN/Creatinine 24 9-20 H Ratio (test code = 3097-3) Sodium (test code = 139 mmol/L 301-093 2766-2) Potassium (test 4.9 mmol/L 3.5-5.2 code = 2823-3) Chloride (test code 100 mmol/L 96-106 = 2075-0) Carbon Dioxide, 23 mmol/L 20-29 Total (test code = 8-9) Calcium (test code 9.0 mg/dL 8.7-10.2 = 71144-7) Protein, Total 6.5 g/dL 6.0-8.5 (test code = 2885-2) Albumin (test code 3.4 g/dL 4.0-5.0 L = 1751-7) Globulin, Total 3.1 g/dL 1.5-4.5 (test code = 21528-2) A/G Ratio (test 1.1 1.2-2.2 L code [...] Range Interpretation Comments Magnesium (test code = 07561-8) 1.8 mg/dL 1.6-2.3 [facility] Description: Microscopic Zxtalfagliz1328-15-85 02:57:00 Test Item Value Reference Range Interpretation Comments WBC (test code = 5821-4) None seen 0-5 RBC (test code = 52082-0) None seen 0-2 Epithelial Cells (non renal) (test None seen 0-10 code = 5787-7) Epithelial Cells (renal) (test code = 78958-5) Casts (test code = 39655-4) None seen None seen Cast Type (test code = 01228-1) Crystals (test code = 5783-6) Crystal Type (test code = 5782-8) Mucus Threads (test code = 8247-9) Bacteria (test code = 5769-5) None seen None seen/Few Yeast (test code = 5822-2) Trichomonas (test code = 5813-1) Comment (test code = 41731-5) [facility] Description: Urate [Mass/volume] in Serum or Vqqmcr9519-02-40 02:57:00 Test Item Value Reference Range Interpretation Comments Uric Acid (test 11.5 mg/dL 3.8-8.4 H code = 3084-1) Therapeutic t arget for gout patients: <6.0

P erformed by:
[facility] (HD)

[facility]: Comp. Metabolic Panel (14)2021-01-30 02:57:00 Test Item Value Reference Range Interpretation Comments Glucose (test code 256 mg/dL 65-99 H = 2345-7) BUN (test code = 57 mg/dL 6-24 H 3094-0) Creatinine (test 2.38 mg/dL 0.76-1.27 H code = 2160-0) eGFR If NonAfricn 31 >59 L Am (test code = mL/min/1.73 55354-3) eGFR If Africn Am 36 >59 L In accor dance with (test code = mL/min/1.73 recommendations from 48318-4) the NKF-ASN Tas k force, [facility] is in the process of updating its eG FR calculation to the 2020 CKD-EPI creatinine equa tion that estimates kidney function witho ut a race variable.
< br/>Per formed by:
[facility] (HD)

BUN/Creatinine 24 9-20 H Ratio (test code = 3097-3) Sodium (test code = 139 mmol/L 684-686 8056-2) Potassium (test 4.9 mmol/L 3.5-5.2 code = 2823-3) Chloride (test code 100 mmol/L 96-106 = 2075-0) Carbon Dioxide, 23 mmol/L 20-29 Total (test code = 2027-9) Calcium (test code 9.0 mg/dL 8.7-10.2 = 09494-6) Protein, Total 6.5 g/dL 6.0-8.5 (test code = 2885-2) Albumin (test code 3.4 g/dL 4.0-5.0 L = 1751-7) Globulin, Total 3.1 g/dL 1.5-4.5 (test code = 15569-8) A/G Ratio (test 1.1 1.2-2.2 L code [...] Range Interpretation Comments Magnesium (test code = 48288-0) 1.8 mg/dL 1.6-2.3 [facility] Description: Microscopic Txwtxmcezxq9404-55-08 02:57:00 Test Item Value Reference Range Interpretation Comments WBC (test code = 5821-4) None seen 0-5 RBC (test code = 90627-6) None seen 0-2 Epithelial Cells (non renal) (test None seen 0-10 code = 5787-7) Epithelial Cells (renal) (test code = 91164-6) Casts (test code = 20229-1) None seen None seen Cast Type (test code = 25613-3) Crystals (test code = 5783-6) Crystal Type (test code = 5782-8) Mucus Threads (test code = 8247-9) Bacteria (test code = 5769-5) None seen None seen/Few Yeast (test code = 5822-2) Trichomonas (test code = 5813-1) Comment (test code = 69636-7) [facility] Description: Urate [Mass/volume] in Serum or [id number] 02:57:00 Test Item Value Reference Range Interpretation Comments Uric Acid (test 11.5 mg/dL 3.8-8.4 H code = 3084-1) Therapeutic t arget for gout patients: <6.0

P erformed by:
[facility] (HD)

[facility] Description: Comp. Metabolic Panel (14)2021-01-30 02:57:00 Test Item Value Reference Range Interpretation Comments Glucose (test code 256 mg/dL 65-99 H = 2345-7) BUN (test code = 57 mg/dL 6-24 H 3094-0) Creatinine (test 2.38 mg/dL 0.76-1.27 H code = 2160-0) eGFR If NonAfricn 31 >59 L Am (test code = mL/min/1.73 47843-6) eGFR If Africn Am 36 >59 L In accor dance with (test code = mL/min/1.73 recommendations from 06284-9) the NKF-ASN Tas k force, [facility] is in the process of updating its eG FR calculation to the 2020 CKD-EPI creatinine equa tion that estimates kidney function witho ut a race variable.
< br/>Per formed by:
[facility] (HD)

BUN/Creatinine 24 9-20 H Ratio (test code = 3097-3) Sodium (test code = 139 mmol/L 766-247 6829-2) Potassium (test 4.9 mmol/L 3.5-5.2 code = 2823-3) Chloride (test code 100 mmol/L 96-106 = 2075-0) Carbon Dioxide, 23 mmol/L 20-29 Total (test code = 2027-9) Calcium (test code 9.0 mg/dL 8.7-10.2 = 31469-1) Protein, Total 6.5 g/dL 6.0-8.5 (test code = 2885-2) Albumin (test code 3.4 g/dL 4.0-5.0 L = 1751-7) Globulin, Total 3.1 g/dL 1.5-4.5 (test code = 59846-1) A/G Ratio (test 1.1 1.2-2.2 L code = 1759-0) Bilirubin, Total 0.4 mg/dL 0.0-1.2 (test code = 1975-2) Alkaline 124 IU/L 44-121 H Phosphatase (test Pl ease note code = 6768-6) reference int erval change
<b r/>Perf ormed by:
[facility] ([place])

AST (SGOT) (test 17 IU/L 0-40 code = 1920-8) ALT (SGPT) (test 23 IU/L 0-44 code = 1742-6) [facility] Description: Phosphate [Mass/volume] in Serum or Plasma 2021-01-30 02:57:00 Test Item Value Reference Range Interpretation Comments Phosphorus (test code = 2777-1) 4.5 mg/dL 2.8-4.1 H [facility] Description: Magnesium [Mass/volume] in Serum or Plasma 2021-01-30 02:57:00 Test Item Value Reference Range Interpretation Comments Magnesium (test code = 59110-1) 1.8 mg/dL 1.6-2.3 [facility] Description: Microscopic Effycjfukce7942-39-27 02:57:00 Test Item Value Reference Range Interpretation Comments WBC (test code = 5821-4) None seen 0-5 RBC (test code = 24873-7) None seen 0-2 Epithelial Cells (non renal) (test None seen 0-10 code = 5787-7) Epithelial Cells (renal) (test code = 75273-9) Casts (test code = 75992-4) None seen None seen Cast Type (test code = 19007-3) Crystals (test code = 5783-6) Crystal Type (test code = 5782-8) Mucus Threads (test code = 8247-9) Bacteria (test code = 5769-5) None seen None seen/Few Yeast (test code = 5822-2) Trichomonas (test code = 5813-1) Comment (test code = 92379-5) [facility] Description: Urate [Mass/volume] in Serum or Rvwvfc7861-00-23 02:57:00 Test Item Value Reference Range Interpretation Comments Uric Acid (test 11.5 mg/dL 3.8-8.4 H code = 3084-1) Therapeutic t arget for gout patients: <6.0

P erformed by:
[facility] (HD)

[facility]: Comp. Metabolic Panel (14)2021-01-30 02:57:00 Test Item Value Reference Range Interpretation Comments Glucose (test code 256 mg/dL 65-99 H = 2345-7) BUN (test code = 57 mg/dL 6-24 H 3094-0) Creatinine (test 2.38 mg/dL 0.76-1.27 H code = 2160-0) eGFR If NonAfricn 31 >59 L Am (test code = mL/min/1.73 95072-2) eGFR If Africn Am 36 >59 L In accor dance with (test code = mL/min/1.73 recommendations from 05997-6) the NKF-ASN Tas k force, [facility] is in the process of updating its eG FR calculation to the 2020 CKD-EPI creatinine equa tion that estimates kidney function witho ut a race variable.
< br/>Per formed by:
[facility] ([place])

BUN/Creatinine 24 9-20 H Ratio (test code = 3097-3) Sodium (test code = 139 mmol/L 114-209 1733-2) Potassium (test 4.9 mmol/L 3.5-5.2 code = 2823-3) Chloride (test code 100 mmol/L 96-106 = 2075-0) Carbon Dioxide, 23 mmol/L 20-29 Total (test code = 2027-) Calcium (test code 9.0 mg/dL 8.7-10.2 = 11058-3) Protein, Total 6.5 g/dL 6.0-8.5 (test code = 2885-2) Albumin (test code 3.4 g/dL 4.0-5.0 L = 1751-7) Globulin, Total 3.1 g/dL 1.5-4.5 (test code = 08791-0) A/G Ratio (test 1.1 1.2-2.2 L code [...] Range Interpretation Comments Magnesium (test code = 41451-8) 1.8 mg/dL 1.6-2.3 [facility] Description: Microscopic Tlzlamwgakh9867-66-76 02:57:00 Test Item Value Reference Range Interpretation Comments WBC (test code = 5821-4) None seen 0-5 RBC (test code = 11289-1) None seen 0-2 Epithelial Cells (non renal) (test None seen 0-10 code = 5787-7) Epithelial Cells (renal) (test code = 82383-4) Casts (test code = 71374-5) None seen None seen Cast Type (test code = 14627-1) Crystals (test code = 5783-6) Crystal Type (test code = 5782-8) Mucus Threads (test code = 8247-9) Bacteria (test code = 5769-5) None seen None seen/Few Yeast (test code = 5822-2) Trichomonas (test code = 5813-1) Comment (test code = 37907-3) [facility] Description: Urate [Mass/volume] in Serum or [id number] 02:57:00 Test Item Value Reference Range Interpretation Comments Uric Acid (test 11.5 mg/dL 3.8-8.4 H code = 3084-1) Therapeutic t arget for gout patients: <6.0

P erformed by:
[facility] ([place])

[facility] Description: Comp. Metabolic Panel (14)2021-01-30 02:57:00 Test Item Value Reference Range Interpretation Comments Glucose (test code 256 mg/dL 65-99 H = 2345-7) BUN (test code = 57 mg/dL 6-24 H 3094-0) Creatinine (test 2.38 mg/dL 0.76-1.27 H code = 2160-0) eGFR If NonAfricn 31 >59 L Am (test code = mL/min/1.73 29198-6) eGFR If Africn Am 36 >59 L In accor dance with (test code = mL/min/1.73 recommendations from 24945-9) the NKF-ASN Tas k force, [facility] is in the process of updating its eG FR calculation to the 2020 CKD-EPI creatinine equa tion that estimates kidney function witho ut a race variable.
< br/>Per formed by:
[facility] ([place])

BUN/Creatinine 24 9-20 H Ratio (test code = 3097-3) Sodium (test code = 139 mmol/L 254-642 3526-2) Potassium (test 4.9 mmol/L 3.5-5.2 code = 2823-3) Chloride (test code 100 mmol/L 96-106 = 5-0) Carbon Dioxide, 23 mmol/L 20-29 Total (test code = 2027-) Calcium (test code 9.0 mg/dL 8.7-10.2 = 72343-6) Protein, Total 6.5 g/dL 6.0-8.5 (test code = 2885-2) Albumin (test code 3.4 g/dL 4.0-5.0 L = 1751-7) Globulin, Total 3.1 g/dL 1.5-4.5 (test code = 79379-1) A/G Ratio (test 1.1 1.2-2.2 L code = 1759-0) Bilirubin, Total 0.4 mg/dL 0.0-1.2 (test code = 1974-2) Alkaline 124 IU/L 44-121 H Phosphatase (test Pl ease note code = 6768-6) reference int erval change
<b r/>Perf ormed by:
[facility] ([place])

AST (SGOT) (test 17 IU/L 0-40 code = 1920-8) ALT (SGPT) (test 23 IU/L 0-44 code = 1742-6) [facility] Description: Phosphate [Mass/volume] in Serum or Plasma 2021-01-30 02:57:00 Test Item Value Reference Range Interpretation Comments Phosphorus (test code = 2777-1) 4.5 mg/dL 2.8-4.1 H [facility] Description: Magnesium [Mass/volume] in Serum or Plasma 2021-01-30 02:57:00 Test Item Value Reference Range Interpretation Comments Magnesium (test code = 02211-6) 1.8 mg/dL 1.6-2.3 [facility] Description: Microscopic [id number] 02:57:00 Test Item Value Reference Range Interpretation Comments WBC (test code = 5821-4) None seen 0-5 RBC (test code = 74861-0) None seen 0-2 Epithelial Cells (non renal) (test None seen 0-10 code = 5787-7) Epithelial Cells (renal) (test code = 79978-0) Casts (test code = 15573-8) None seen None seen Cast Type (test code = 26342-1) Crystals (test code = 5783-6) Crystal Type (test code = 5782-8) Mucus Threads (test code = 8247-9) Bacteria (test code = 5769-5) None seen None seen/Few Yeast (test code = 5822-2) Trichomonas (test code = 5813-1) Comment (test code = 49066-4) [facility] Description: Urate [Mass/volume] in Serum or [id number] 02:57:00 Test Item Value Reference Range Interpretation Comments Uric Acid (test 11.5 mg/dL 3.8-8.4 H code = 3084-1) Therapeutic t arget for gout patients: <6.0

P erformed by:
[facility] ([place])

[facility] Description: Comp. Metabolic Panel (14)2021-01-30 02:57:00 Test Item Value Reference Range Interpretation Comments Glucose (test code 256 mg/dL 65-99 H = 2345-7) BUN (test code = 57 mg/dL 6-24 H 3094-0) Creatinine (test 2.38 mg/dL 0.76-1.27 H code = 2160-0) eGFR If NonAfricn 31 >59 L Am (test code = mL/min/1.73 97632-2) eGFR If Africn Am 36 >59 L In accor dance with (test code = mL/min/1.73 recommendations from 43043-7) the NKF-ASN Tas k force, [facility] is in the process of updating its eG FR calculation to the 2020 CKD-EPI creatinine equa tion that estimates kidney function witho ut a race variable.
< br/>Per formed by:
[facility] ([place])

BUN/Creatinine 24 9-20 H Ratio (test code = 3097-3) Sodium (test code = 139 mmol/L 078-037 9601-2) Potassium (test 4.9 mmol/L 3.5-5.2 code = 2823-3) Chloride (test code 100 mmol/L 96-106 = 2075-0) Carbon Dioxide, 23 mmol/L 20-29 Total (test code = 2027-) Calcium (test code 9.0 mg/dL 8.7-10.2 = 75267-2) Protein, Total 6.5 g/dL 6.0-8.5 (test code = 2885-2) Albumin (test code 3.4 g/dL 4.0-5.0 L = 1751-7) Globulin, Total 3.1 g/dL 1.5-4.5 (test code = 57645-6) A/G Ratio (test 1.1 1.2-2.2 L code = 1759-0) Bilirubin, Total 0.4 mg/dL 0.0-1.2 (test code = 1975-2) Alkaline 124 IU/L 44-121 H Phosphatase (test Pl ease note code = 6768-6) reference int erval change
<b r/>Perf ormed by:
[facility] ([place])

AST (SGOT) (test 17 IU/L 0-40 code = 1920-8) ALT (SGPT) (test 23 IU/L 0-44 code = 1742-6) [facility] Description: Phosphate [Mass/volume] in Serum or Plasma 2021-01-30 02:57:00 Test Item Value Reference Range Interpretation Comments Phosphorus (test code = 2777-1) 4.5 mg/dL 2.8-4.1 H [facility] Description: Magnesium [Mass/volume] in Serum or Plasma 2021-01-30 02:57:00 Test Item Value Reference Range Interpretation Comments Magnesium (test code = 39822-6) 1.8 mg/dL 1.6-2.3 [facility] Description: Microscopic Csczdtsfcsn7655-84-03 02:57:00 Test Item Value Reference Range Interpretation Comments WBC (test code = 5821-4) None seen 0-5 RBC (test code = 38685-1) None seen 0-2 Epithelial Cells (non renal) (test None seen 0-10 code = 5787-7) Epithelial Cells (renal) (test code = 37874-1) Casts (test code = 10627-7) None seen None seen Cast Type (test code = 55384-2) Crystals (test code = 5783-6) Crystal Type (test code = 5782-8) Mucus Threads (test code = 8247-9) Bacteria (test code = 5769-5) None seen None seen/Few Yeast (test code = 5822-2) Trichomonas (test code = 5813-1) Comment (test code = 10715-3) [facility] Description: Urate [Mass/volume] in Serum or Wfjfjs8181-14-35 02:57:00 Test Item Value Reference Range Interpretation Comments Uric Acid (test 11.5 mg/dL 3.8-8.4 H code = 3084-1) Therapeutic t arget for gout patients: <6.0

P erformed by:
[facility] ([place])

[facility] Description: Comp. Metabolic Panel (14)2021-01-30 02:57:00 Test Item Value Reference Range Interpretation Comments Glucose (test code 256 mg/dL 65-99 H = 2345-7) BUN (test code = 57 mg/dL 6-24 H 3094-0) Creatinine (test 2.38 mg/dL 0.76-1.27 H code = 2160-0) eGFR If NonAfricn 31 >59 L Am (test code = mL/min/1.73 90331-2) eGFR If Africn Am 36 >59 L In accor dance with (test code = mL/min/1.73 recommendations from 82283-4) the NKF-ASN Tas k force, [facility] is in the process of updating its eG FR calculation to the 2020 CKD-EPI creatinine equa tion that estimates kidney function witho ut a race variable.
< br/>Per formed by:
[facility] ([place])

BUN/Creatinine 24 9-20 H Ratio (test code = 3097-3) Sodium (test code = 139 mmol/L 601-030 1794-2) Potassium (test 4.9 mmol/L 3.5-5.2 code = 2823-3) Chloride (test code 100 mmol/L 96-106 = 2075-0) Carbon Dioxide, 23 mmol/L 20-29 Total (test code = 2027-9) Calcium (test code 9.0 mg/dL 8.7-10.2 = 91090-8) Protein, Total 6.5 g/dL 6.0-8.5 (test code = 2885-2) Albumin (test code 3.4 g/dL 4.0-5.0 L = 1751-7) Globulin, Total 3.1 g/dL 1.5-4.5 (test code = 46007-5) A/G Ratio (test 1.1 1.2-2.2 L code = 1759-0) Bilirubin, Total 0.4 mg/dL 0.0-1.2 (test code = 1975-2) Alkaline 124 IU/L 44-121 H Phosphatase (test Pl ease note code = 6768-6) reference int erval change
<b r/>Perf ormed by:
[facility] ([place])

AST (SGOT) (test 17 IU/L 0-40 code = 1920-8) ALT (SGPT) (test 23 IU/L 0-44 code = 1742-6) [facility] Description: Phosphate [Mass/volume] in Serum or Plasma 2021-01-30 02:57:00 Test Item Value Reference Range Interpretation Comments Phosphorus (test code = 2777-1) 4.5 mg/dL 2.8-4.1 H [facility] Description: Magnesium [Mass/volume] in Serum or Plasma 2021-01-30 02:57:00 Test Item Value Reference Range Interpretation Comments Magnesium (test code = 05231-9) 1.8 mg/dL 1.6-2.3 [facility] Description: Microscopic Cuqqgegzdvi6031-04-32 02:57:00 Test Item Value Reference Range Interpretation Comments WBC (test code = 5821-4) None seen 0-5 RBC (test code = 09215-2) None seen 0-2 Epithelial Cells (non renal) (test None seen 0-10 code = 5787-7) Epithelial Cells (renal) (test code = 38366-6) Casts (test code = 90122-6) None seen None seen Cast Type (test code = 01995-3) Crystals (test code = 5783-6) Crystal Type (test code = 5782-8) Mucus Threads (test code = 8247-9) Bacteria (test code = 5769-5) None seen None seen/Few Yeast (test code = 5822-2) Trichomonas (test code = 5813-1) Comment (test code = 20435-8) [facility] Description: Urate [Mass/volume] in Serum or Iwvwow1741-66-69 02:57:00 Test Item Value Reference Range Interpretation Comments Uric Acid (test 11.5 mg/dL 3.8-8.4 H code = 3084-1) Therapeutic t arget for gout patients: <6.0

P erformed by:
[facility] ([place])

[facility] Description: Comp. Metabolic Panel (14)2021-01-30 02:57:00 Test Item Value Reference Range Interpretation Comments Glucose (test code 256 mg/dL 65-99 H = 2345-7) BUN (test code = 57 mg/dL 6-24 H 3094-0) Creatinine (test 2.38 mg/dL 0.76-1.27 H code = 2160-0) eGFR If NonAfricn 31 >59 L Am (test code = mL/min/1.73 92469-1) eGFR If Africn Am 36 >59 L In accor dance with (test code = mL/min/1.73 recommendations from 07832-7) the NKF-ASN Tas k force, [facility] is in the process of updating its eG FR calculation to the 2020 CKD-EPI creatinine equa tion that estimates kidney function witho ut a race variable.
< br/>Per formed by:
[facility] ([place])

BUN/Creatinine 24 9-20 H Ratio (test code = 3097-3) Sodium (test code = 139 mmol/L 146-753 8199-2) Potassium (test 4.9 mmol/L 3.5-5.2 code = 2823-3) Chloride (test code 100 mmol/L 96-106 = 5-0) Carbon Dioxide, 23 mmol/L 20-29 Total (test code = 2027-) Calcium (test code 9.0 mg/dL 8.7-10.2 = 67136-1) Protein, Total 6.5 g/dL 6.0-8.5 (test code = 2885-2) Albumin (test code 3.4 g/dL 4.0-5.0 L = 1751-7) Globulin, Total 3.1 g/dL 1.5-4.5 (test code = 39383-1) A/G Ratio (test 1.1 1.2-2.2 L code = 1759-0) Bilirubin, Total 0.4 mg/dL 0.0-1.2 (test code = 1975-2) Alkaline 124 IU/L 44-121 H Phosphatase (test Pl ease note code = 6768-6) reference int erval change
<b r/>Perf ormed by:
[facility] ([place])

AST (SGOT) (test 17 IU/L 0-40 code = 1920-8) ALT (SGPT) (test 23 IU/L 0-44 code = 1742-6) [facility] Description: Phosphate [Mass/volume] in Serum or Plasma 2021-01-30 02:57:00 Test Item Value Reference Range Interpretation Comments Phosphorus (test code = 2777-1) 4.5 mg/dL 2.8-4.1 H [facility] Description: Magnesium [Mass/volume] in Serum or Plasma 2021-01-30 02:57:00 Test Item Value Reference Range Interpretation Comments Magnesium (test code = 18024-4) 1.8 mg/dL 1.6-2.3 [facility] Description: Microscopic Bjnmdylqufp5946-96-66 02:57:00 Test Item Value Reference Range Interpretation Comments WBC (test code = 5821-4) None seen 0-5 RBC (test code = 03981-1) None seen 0-2 Epithelial Cells (non renal) (test None seen 0-10 code = 5787-7) Epithelial Cells (renal) (test code = 69572-8) Casts (test code = 25332-2) None seen None seen Cast Type (test code = 71764-5) Crystals (test code = 5783-6) Crystal Type (test code = 5782-8) Mucus Threads (test code = 8247-9) Bacteria (test code = 5769-5) None seen None seen/Few Yeast (test code = 5822-2) Trichomonas (test code = 5813-1) Comment (test code = 83235-0) [facility] Description: Urate [Mass/volume] in Serum or [id number] 02:57:00 Test Item Value Reference Range Interpretation [...] >59 L Am (test code = mL/min/1.73 02057-5) eGFR If Africn Am 36 >59 L In accor dance with (test code = mL/min/1.73 recommendations from 55596-5) the NKF-ASN Tas k force, [facility] is in the process of updating its eG FR calculation to the 2020 CKD-EPI creatinine equa tion that estimates kidney function witho ut a race variable.
< br/>Per formed by:
[facility] ([place])

BUN/Creatinine 24 9-20 H Ratio (test code = 3097-3) Sodium (test code = 139 mmol/L 623-496 8868-2) Potassium (test 4.9 mmol/L 3.5-5.2 code = 2823-3) Chloride (test code 100 mmol/L 96-106 = 5-0) Carbon Dioxide, 23 mmol/L 20-29 Total (test code = 2027-) Calcium (test code 9.0 mg/dL 8.7-10.2 = 99517-3) Protein, Total 6.5 g/dL 6.0-8.5 (test code = 2885-2) Albumin (test code 3.4 g/dL 4.0-5.0 L = 1751-7) Globulin, Total 3.1 g/dL 1.5-4.5 (test code = 03950-7) A/G Ratio (test 1.1 1.2-2.2 L code = 1759-0) Bilirubin, Total 0.4 mg/dL 0.0-1.2 (test code = 1974-2) Alkaline 124 IU/L 44-121 H Phosphatase (test Pl ease note code = 6768-6) reference int erval change
<b r/>Perf ormed by:
[facility] ([place])

AST (SGOT) (test 17 IU/L 0-40 code = 1920-8) ALT (SGPT) (test 23 IU/L 0-44 code = 1742-6) [facility] Description: Phosphate [Mass/volume] in Serum or Plasma 2021-01-30 02:57:00 Test Item Value Reference Range Interpretation Comments Phosphorus (test code = 2777-1) 4.5 mg/dL 2.8-4.1 H [facility] Description: Magnesium [Mass/volume] in Serum or Plasma 2021-01-30 02:57:00 Test Item Value Reference Range Interpretation Comments Magnesium (test code = 05857-3) 1.8 mg/dL 1.6-2.3 [facility] Description: Microscopic Qldhhhgoays5541-53-90 02:57:00 Test Item Value Reference Range Interpretation Comments WBC (test code = 5821-4) None seen 0-5 RBC (test code = 87676-1) None seen 0-2 Epithelial Cells (non renal) (test None seen 0-10 code = 5787-7) Epithelial Cells (renal) (test code = 18820-3) Casts (test code = 38961-1) None seen None seen Cast Type (test code = 38524-9) Crystals (test code = 5783-6) Crystal Type (test code = 5782-8) Mucus Threads (test code = 8247-9) Bacteria (test code = 5769-5) None seen None seen/Few Yeast (test code = 5822-2) Trichomonas (test code = 5813-1) Comment (test code = 76608-4) [facility] Description: Urate [Mass/volume] in Serum or [id number] 02:57:00 Test Item Value Reference Range Interpretation Comments Uric Acid (test 11.5 mg/dL 3.8-8.4 H code = 3084-1) Therapeutic t arget for gout patients: <6.0

P erformed by:
[facility] ([place])

[facility] Description: Comp. Metabolic Panel (14)2021-01-30 02:57:00 Test Item Value Reference Range Interpretation Comments Glucose (test code 256 mg/dL 65-99 H = 2345-7) BUN (test code = 57 mg/dL 6-24 H 3094-0) Creatinine (test 2.38 mg/dL 0.76-1.27 H code = 2160-0) eGFR If NonAfricn 31 >59 L Am (test code = mL/min/1.73 06228-9) eGFR If Africn Am 36 >59 L In accor dance with (test code = mL/min/1.73 recommendations from 14677-2) the NKF-ASN Tas k force, [facility] is in the process of updating its eG FR calculation to the 2020 CKD-EPI creatinine equa tion that estimates kidney function witho ut a race variable.
< br/>Per formed by:
[facility] ([place])

BUN/Creatinine 24 9-20 H Ratio (test code = 3097-3) Sodium (test code = 139 mmol/L 560-188 7861-2) Potassium (test 4.9 mmol/L 3.5-5.2 code = 2823-3) Chloride (test code 100 mmol/L 96-106 = 5-0) Carbon Dioxide, 23 mmol/L 20-29 Total (test code = 2027-) Calcium (test code 9.0 mg/dL 8.7-10.2 = 88756-1) Protein, Total 6.5 g/dL 6.0-8.5 (test code = 2885-2) Albumin (test code 3.4 g/dL 4.0-5.0 L = 1751-7) Globulin, Total 3.1 g/dL 1.5-4.5 (test code = 56966-9) A/G Ratio (test 1.1 1.2-2.2 L code = 1759-0) Bilirubin, Total 0.4 mg/dL 0.0-1.2 (test code = 1974-2) Alkaline 124 IU/L 44-121 H Phosphatase (test Pl ease note code = 6768-6) reference int erval change
<b r/>Perf ormed by:
[facility] ([place])

AST (SGOT) (test 17 IU/L 0-40 code = 1920-8) ALT (SGPT) (test 23 IU/L 0-44 code = 1742-6) [facility]: Phosphate [Mass/volume] in Serum or Plasma 2021-01-30 02:57:00 Test Item Value Reference Range Interpretation Comments Phosphorus (test code = 2777-1) 4.5 mg/dL 2.8-4.1 H [facility] Description: Magnesium [Mass/volume] in Serum or Plasma 2021-01-30 02:57:00 Test Item Value Reference Range Interpretation Comments Magnesium (test code = 52670-6) 1.8 mg/dL 1.6-2.3 [facility] Description: Microscopic Cyqeckjkqot8685-26-83 02:57:00 Test Item Value Reference Range Interpretation Comments WBC (test code = 5821-4) None seen 0-5 RBC (test code = 58817-0) None seen 0-2 Epithelial Cells (non renal) (test None seen 0-10 code = 5787-7) Epithelial Cells (renal) (test code = 38379-4) Casts (test code = 31390-9) None seen None seen Cast Type (test code = 02966-6) Crystals (test code = 5783-6) Crystal Type (test code = 5782-8) Mucus Threads (test code = 8247-9) Bacteria (test code = 5769-5) None seen None seen/Few Yeast (test code = 5822-2) Trichomonas (test code = 5813-1) Comment (test code = 10192-5) [facility] Description: Urate [Mass/volume] in Serum or [id number] 02:57:00 Test Item Value Reference Range Interpretation Comments Uric Acid (test 11.5 mg/dL 3.8-8.4 H code = 3084-1) Therapeutic t arget for gout patients: <6.0

P erformed by:
[facility] ()

[facility] Description: Urinalysis, [id number] 02:24:00 Test Item Value Reference Range Interpretation Comments Specific [place] (test 1.017 1.005-1.030 code = 2965-2) pH (test code = 5.5 5.0-7.5 5803-2) Urine-Color (test code Yellow Yellow = 5778-6) Appearance (test code Clear Clear = 5767-9) WBC Esterase (test Negative Negative code = 5799-2) Protein (test code = 4+ Negative/Trace A 50894-7) Glucose (test code = 1+ Negative A 2349-9) Ketones (test code = Negative Negative 2514-8) Occult Blood (test Trace Negative A code = 5794-3) Bilirubin (test code = Negative Negative 5770-3) Urobilinogen,Semi-Qn 0.2 mg/dL 0.2-1.0 (test code = 01586-1) Nitrite, Urine (test Negative Negative code = 5802-4) Microscopic See below: Microscopic was Examination (test code indic ated and was = 43574-8) performed.

P erformed by:
[facility] ()

[facility] Description: Urinalysis, [id number] 02:24:00 Test Item Value Reference Range Interpretation Comments Specific [place] (test 1.017 1.005-1.030 code = 2965-2) pH (test code = 5.5 5.0-7.5 5803-2) Urine-Color (test code Yellow Yellow = 5778-6) Appearance (test code Clear Clear = 5767-9) WBC Esterase (test Negative Negative code = 5799-2) Protein (test code = 4+ Negative/Trace A 74812-0) Glucose (test code = 1+ Negative A 2349-9) Ketones (test code = Negative Negative 2514-8) Occult Blood (test Trace Negative A code = 5794-3) Bilirubin (test code = Negative Negative 5770-3) Urobilinogen,Semi-Qn 0.2 mg/dL 0.2-1.0 (test code = 00360-0) Nitrite, Urine (test Negative Negative code = 5802-4) Microscopic See below: Microscopic was Examination (test code indic ated and was = 83040-9) performed.

P erformed by:
[facility] ()

[facility] Description: Urinalysis, [id number] 02:24:00 Test Item Value Reference Range Interpretation Comments Specific [place] (test 1.017 1.005-1.030 code = 2965-2) pH (test code = 5.5 5.0-7.5 5803-2) Urine-Color (test code Yellow Yellow = 5778-6) Appearance (test code Clear Clear = 5767-9) WBC Esterase (test Negative Negative code = 5799-2) Protein (test code = 4+ Negative/Trace A 61276-1) Glucose (test code = 1+ Negative A 2349-9) Ketones (test code = Negative Negative 2514-8) Occult Blood (test Trace Negative A code = 5794-3) Bilirubin (test code = Negative Negative 5770-3) Urobilinogen,Semi-Qn 0.2 mg/dL 0.2-1.0 (test code = 42354-4) Nitrite, Urine (test Negative Negative code = 5802-4) Microscopic See below: Microscopic was Examination (test code indic ated and was = 64251-0) performed.

P erformed by:
[facility] ()

[facility] Description: Urinalysis, [id number] 02:24:00 Test Item Value Reference Range Interpretation Comments Specific [place] (test 1.017 1.005-1.030 code = 2965-2) pH (test code = 5.5 5.0-7.5 5803-2) Urine-Color (test code Yellow Yellow = 5778-6) Appearance (test code Clear Clear = 5767-9) WBC Esterase (test Negative Negative code = 5799-2) Protein (test code = 4+ Negative/Trace A 80366-6) Glucose (test code = 1+ Negative A 2349-9) Ketones (test code = Negative Negative 2514-8) Occult Blood (test Trace Negative A code = 5794-3) Bilirubin (test code = Negative Negative 5770-3) Urobilinogen,Semi-Qn 0.2 mg/dL 0.2-1.0 (test code = 78617-9) Nitrite, Urine (test Negative Negative code = 5802-4) Microscopic See below: Microscopic was Examination (test code indic atecatrachito and was = 59612-9) performed.

P erformed by:
[facility] ()

[facility] Description: Urinalysis, [id number] 02:24:00 Test Item Value Reference Range Interpretation Comments Specific [place] (test 1.017 1.005-1.030 code = 2965-2) pH (test code = 5.5 5.0-7.5 5803-2) Urine-Color (test code Yellow Yellow = 5778-6) Appearance (test code Clear Clear = 5767-9) WBC Esterase (test Negative Negative code = 5799-2) Protein (test code = 4+ Negative/Trace A 76216-3) Glucose (test code = 1+ Negative A 2349-9) Ketones (test code = Negative Negative 2514-8) Occult Blood (test Trace Negative A code = 5794-3) Bilirubin (test code = Negative Negative 5770-3) Urobilinogen,Semi-Qn 0.2 mg/dL 0.2-1.0 (test code = 10283-8) Nitrite, Urine (test Negative Negative code = 5802-4) Microscopic See below: Microscopic was Examination (test code indic ated and was = 80255-7) performed.

P erformed by:
[facility] ()

[facility] Description: Urinalysis, [id number] 02:24:00 Test Item Value Reference Range Interpretation Comments Specific [place] (test 1.017 1.005-1.030 code = 2965-2) pH (test code = 5.5 5.0-7.5 5803-2) Urine-Color (test code Yellow Yellow = 5778-6) Appearance (test code Clear Clear = 5767-9) WBC Esterase (test Negative Negative code = 5799-2) Protein (test code = 4+ Negative/Trace A 27216-1) Glucose (test code = 1+ Negative A 2349-9) Ketones (test code = Negative Negative 2514-8) Occult Blood (test Trace Negative A code = 5794-3) Bilirubin (test code = Negative Negative 5770-3) Urobilinogen,Semi-Qn 0.2 mg/dL 0.2-1.0 (test code = 62318-1) Nitrite, Urine (test Negative Negative code = 5802-4) Microscopic See below: Microscopic was Examination (test code indic ated and was = 94386-2) performed.

P erformed by:
[facility] ()

[facility] Description: Urinalysis, [id number] 02:24:00 Test Item Value Reference Range Interpretation Comments Specific [place] (test 1.017 1.005-1.030 code = 2965-2) pH (test code = 5.5 5.0-7.5 5803-2) Urine-Color (test code Yellow Yellow = 5778-6) Appearance (test code Clear Clear = 5767-9) WBC Esterase (test Negative Negative code = 5799-2) Protein (test code = 4+ Negative/Trace A 21846-0) Glucose (test code = 1+ Negative A 2349-9) Ketones (test code = Negative Negative 2514-8) Occult Blood (test Trace Negative A code = 5794-3) Bilirubin (test code = Negative Negative 5770-3) Urobilinogen,Semi-Qn 0.2 mg/dL 0.2-1.0 (test code = 59307-0) Nitrite, Urine (test Negative Negative code = 5802-4) Microscopic See below: Microscopic was Examination (test code indic ated and was = 54420-8) performed.

P erformed by:
Rooftop Down ()

[facility] Description: Urinalysis, [id number] 02:24:00 Test Item Value Reference Range Interpretation Comments Specific [place] (test 1.017 1.005-1.030 code = 2965-2) pH (test code = 5.5 5.0-7.5 5803-2) Urine-Color (test code Yellow Yellow = 5778-6) Appearance (test code Clear Clear = 5767-9) WBC Esterase (test Negative Negative code = 5799-2) Protein (test code = 4+ Negative/Trace A 70116-2) Glucose (test code = 1+ Negative A 2349-9) Ketones (test code = Negative Negative 2514-8) Occult Blood (test Trace Negative A code = 5794-3) Bilirubin (test code = Negative Negative 5770-3) Urobilinogen,Semi-Qn 0.2 mg/dL 0.2-1.0 (test code = 14439-5) Nitrite, Urine (test Negative Negative code = 5802-4) Microscopic See below: Microscopic was Examination (test code indic ated and was = 00761-2) performed.

P erformed by:
Rooftop Down ()

[facility] Description: Urinalysis, [id number] 02:24:00 Test Item Value Reference Range Interpretation Comments Specific [place] (test 1.017 1.005-1.030 code = 2965-2) pH (test code = 5.5 5.0-7.5 5803-2) Urine-Color (test code Yellow Yellow = 5778-6) Appearance (test code Clear Clear = 5767-9) WBC Esterase (test Negative Negative code = 5799-2) Protein (test code = 4+ Negative/Trace A 42088-5) Glucose (test code = 1+ Negative A 2349-9) Ketones (test code = Negative Negative 2514-8) Occult Blood (test Trace Negative A code = 5794-3) Bilirubin (test code = Negative Negative 5770-3) Urobilinogen,Semi-Qn 0.2 mg/dL 0.2-1.0 (test code = 92218-5) Nitrite, Urine (test Negative Negative code = 5802-4) Microscopic See below: Microscopic was Examination (test code indic ated and was = 09983-3) performed.

P erformed by:
Mind[facility]cer Kaur ()

[facility], [id number] 02:24:00 Test Item Value Reference Range Interpretation Comments Specific [place] (test 1.017 1.005-1.030 code = 2965-2) pH (test code = 5.5 5.0-7.5 5803-2) Urine-Color (test code Yellow Yellow = 5778-6) Appearance (test code Clear Clear = 5767-9) WBC Esterase (test Negative Negative code = 5799-2) Protein (test code = 4+ Negative/Trace A 11219-1) Glucose (test code = 1+ Negative A 2349-9) Ketones (test code = Negative Negative 2514-8) Occult Blood (test Trace Negative A code = 5794-3) Bilirubin (test code = Negative Negative 5770-3) Urobilinogen,Semi-Qn 0.2 mg/dL 0.2-1.0 (test code = 64710-3) Nitrite, Urine (test Negative Negative code = 5802-4) Microscopic See below: Microscopic was Examination (test code indic ated and was = 31230-5) performed.

P erformed by:
Mindmancer [place] ()

[facility], [id number] 02:24:00 Test Item Value Reference Range Interpretation Comments Specific [place] (test 1.017 1.005-1.030 code = 2965-2) pH (test code = 5.5 5.0-7.5 5803-2) Urine-Color (test code Yellow Yellow = 5778-6) Appearance (test code Clear Clear = 5767-9) WBC Esterase (test Negative Negative code = 5799-2) Protein (test code = 4+ Negative/Trace A 17687-4) Glucose (test code = 1+ Negative A 2349-9) Ketones (test code = Negative Negative 2514-8) Occult Blood (test Trace Negative A code = 5794-3) Bilirubin (test code = Negative Negative 5770-3) Urobilinogen,Semi-Qn 0.2 mg/dL 0.2-1.0 (test code = 79459-1) Nitrite, Urine (test Negative Negative code = 5802-4) Microscopic See below: Microscopic was Examination (test code indic ated and was = 82697-7) performed.

P erformed by:
[facility] [place] ()

[facility] Description: Urinalysis, [id number] 02:24:00 Test Item Value Reference Range Interpretation Comments Specific [place] (test 1.017 1.005-1.030 code = 2965-2) pH (test code = 5.5 5.0-7.5 5803-2) Urine-Color (test code Yellow Yellow = 5778-6) Appearance (test code Clear Clear = 5767-9) WBC Esterase (test Negative Negative code = 5799-2) Protein (test code = 4+ Negative/Trace A 26908-4) Glucose (test code = 1+ Negative A 2349-9) Ketones (test code = Negative Negative 2514-8) Occult Blood (test Trace Negative A code = 5794-3) Bilirubin (test code = Negative Negative 5770-3) Urobilinogen,Semi-Qn 0.2 mg/dL 0.2-1.0 (test code = 21626-6) Nitrite, Urine (test Negative Negative code = 5802-4) Microscopic See below: Microscopic was Examination (test code tor duran was = 33247-5) performed.

P erformed by:
[facility] ()

[facility] Description: Urinalysis, [id number] 02:24:00 [facility]: Urinalysis, Complete 2021-01-30 02:24:00[facility]: Urinalysis, [id number] 02:24:00[facility]: Urinalysis, [id number] 02:24:00Microscopic Examination [facility] Description: Urinalysis, [id number] 02:24:00 [facility]: Urinalysis, Complete 2021-01-30 02:24:00[facility]: Urinalysis, [id number] 02:24:00[facility]: Urinalysis, [id number] 02:24:00Microscopic Examination [facility] Description: Urinalysis, [id number] 02:24:00 [facility]: Urinalysis, Complete 2021-01-30 02:24:00[facility] Description: Urinalysis, [id number] 02:24:00[facility] Description: Urinalysis, [id number] 02:24:00Microscopic Examination [facility] Description: Natriuretic peptide B [Mass/volume] in Serum or [id number] 13:54:00 Test Item Value Reference Range Interpretation Comments B-Type Natriuretic Peptide (test 427.5 pg/mL 0.0-100.0 H code = 80904-8) [facility] Description: Natriuretic peptide B [Mass/volume] in Serum or [id number] 13:54:00 Test Item Value Reference Range Interpretation Comments B-Type Natriuretic Peptide (test 427.5 pg/mL 0.0-100.0 H code = 70597-1) [facility] Description: Natriuretic peptide B [Mass/volume] in Serum or [id number] 13:54:00 Test Item Value Reference Range Interpretation Comments B-Type Natriuretic Peptide (test 427.5 pg/mL 0.0-100.0 H code = 54012-1) [facility] Description: Natriuretic peptide B [Mass/volume] in Serum or [id number] 13:54:00 Test Item Value Reference Range Interpretation Comments B-Type Natriuretic Peptide (test 427.5 pg/mL 0.0-100.0 H code = 34398-8) [facility] Description: Natriuretic peptide B [Mass/volume] in Serum or [id number] 13:54:00 Test Item Value Reference Range Interpretation Comments B-Type Natriuretic Peptide (test 427.5 pg/mL 0.0-100.0 H code = 54424-8) [facility] Description: Natriuretic peptide B [Mass/volume] in Serum or [id number] 13:54:00 Test Item Value Reference Range Interpretation Comments B-Type Natriuretic Peptide (test 427.5 pg/mL 0.0-100.0 H code = 73200-9) [facility] Description: Natriuretic peptide B [Mass/volume] in Serum or [id number] 13:54:00 Test Item Value Reference Range Interpretation Comments B-Type Natriuretic Peptide (test 427.5 pg/mL 0.0-100.0 H code = 41761-7) [facility] Description: Natriuretic peptide B [Mass/volume] in Serum or [id number] 13:54:00 Test Item Value Reference Range Interpretation Comments B-Type Natriuretic Peptide (test 427.5 pg/mL 0.0-100.0 H code = 96256-3) [facility] Description: Natriuretic peptide B [Mass/volume] in Serum or [id number] 13:54:00 Test Item Value Reference Range Interpretation Comments B-Type Natriuretic Peptide (test 427.5 pg/mL 0.0-100.0 H code = 43785-4) [facility] Description: Natriuretic peptide B [Mass/volume] in Serum or [id number] 13:54:00 Test Item Value Reference Range Interpretation Comments B-Type Natriuretic Peptide (test 427.5 pg/mL 0.0-100.0 H code = 18885-8) [facility] Description: Natriuretic peptide B [Mass/volume] in Serum or [id number] 13:54:00 Test Item Value Reference Range Interpretation Comments B-Type Natriuretic Peptide (test 427.5 pg/mL 0.0-100.0 H code = 64301-4) [facility] Description: Natriuretic peptide B [Mass/volume] in Serum or [id number] 13:54:00 Test Item Value Reference Range Interpretation Comments B-Type Natriuretic Peptide (test 427.5 pg/mL 0.0-100.0 H code = 43772-3) [facility] Description: Natriuretic peptide B [Mass/volume] in Serum or [id number] 13:54:00 Test Item Value Reference Range Interpretation Comments B-Type Natriuretic Peptide (test 427.5 pg/mL 0.0-100.0 H code = 56549-1) [facility] Description: Natriuretic peptide B [Mass/volume] in Serum or [id number] 13:54:00 Test Item Value Reference Range Interpretation Comments B-Type Natriuretic Peptide (test 427.5 pg/mL 0.0-100.0 H code = 53455-4) [facility] Description: Natriuretic peptide B [Mass/volume] in Serum or [id number] 13:54:00 Test Item Value Reference Range Interpretation Comments B-Type Natriuretic Peptide (test 427.5 pg/mL 0.0-100.0 H code = 01347-9) [facility] Description: Natriuretic peptide B [Mass/volume] in Serum or [id number] 13:54:00 Test Item Value Reference Range Interpretation Comments B-Type Natriuretic Peptide (test 427.5 pg/mL 0.0-100.0 H code = 20411-1) [facility] Description: Natriuretic peptide B [Mass/volume] in Serum or [id number] 13:54:00 Test Item Value Reference Range Interpretation Comments B-Type Natriuretic Peptide (test 427.5 pg/mL 0.0-100.0 H code = 90595-1) [facility] Description: Natriuretic peptide B [Mass/volume] in Serum or [id number] 13:54:00 Test Item Value Reference Range Interpretation Comments B-Type Natriuretic Peptide (test 427.5 pg/mL 0.0-100.0 H code = 63606-3) [facility] Description: Phosphate [Mass/volume] in Serum or Plasma 2020-12-04 02:42:00 Test Item Value Reference Range Interpretation Comments Phosphorus (test code = 2777-1) 4.4 mg/dL 2.8-4.1 H [facility] Description: Phosphate [Mass/volume] in Serum or Plasma 2020-12-04 02:42:00 Test Item Value Reference Range Interpretation Comments Phosphorus (test code = 2777-1) 4.4 mg/dL 2.8-4.1 H [facility] Description: Phosphate [Mass/volume] in Serum or Plasma 2020-12-04 02:42:00 Test Item Value Reference Range Interpretation Comments Phosphorus (test code = 2777-1) 4.4 mg/dL 2.8-4.1 H [facility] Description: Phosphate [Mass/volume] in Serum or Plasma 2020-12-04 02:42:00 Test Item Value Reference Range Interpretation Comments Phosphorus (test code = 2777-1) 4.4 mg/dL 2.8-4.1 H [facility] Description: Phosphate [Mass/volume] in Serum or Plasma 2020-12-04 02:42:00 Test Item Value Reference Range Interpretation Comments Phosphorus (test code = 2777-1) 4.4 mg/dL 2.8-4.1 H [facility] Description: Phosphate [Mass/volume] in Serum or Plasma 2020-12-04 02:42:00 Test Item Value Reference Range Interpretation Comments Phosphorus (test code = 2777-1) 4.4 mg/dL 2.8-4.1 H [facility] Description: Phosphate [Mass/volume] in Serum or Plasma 2020-12-04 02:42:00 Test Item Value Reference Range Interpretation Comments Phosphorus (test code = 2777-1) 4.4 mg/dL 2.8-4.1 H [facility] Description: Phosphate [Mass/volume] in Serum or Plasma 2020-12-04 02:42:00 Test Item Value Reference Range Interpretation Comments Phosphorus (test code = 2777-1) 4.4 mg/dL 2.8-4.1 H [facility] Description: Phosphate [Mass/volume] in Serum [...] = 2777-1) 4.4 mg/dL 2.8-4.1 H [facility] Description: Phosphate [Mass/volume] in Serum or Plasma 2020-12-04 02:42:00 Test Item Value Reference Range Interpretation Comments Phosphorus (test code = 2777-1) 4.4 mg/dL 2.8-4.1 H [facility] Description: Phosphate [Mass/volume] in Serum [...] = 2777-1) 4.4 mg/dL 2.8-4.1 H [facility]. [facility] (14)2020-12-04 02:12:00 Test Item Value Reference Range Interpretation Comments Glucose (test code 315 mg/dL 65-99 H = 2345-7) BUN (test code = 52 mg/dL 6-24 H 3094-0) Creatinine (test 2.32 mg/dL 0.76-1.27 H code = 2160-0) eGFR If NonAfricn 32 >59 L Am (test code = mL/min/1.73 69010-3) eGFR If Africn Am 37 >59 L [facility] currently (test code = mL/min/1.73 [place] [address]-9) compliance with the current recommendations of the [employer] Kid[employer]. [facility] [place] will update re porting as new guidelin es are published from the NKF-ASN Task force.
<br/ >Perfor med by:
[facility] (HD)

BUN/Creatinine 22 9-20 H Ratio (test code = 3097-3) Sodium (test code = 142 mmol/L 691-573 2566-2) Potassium (test 4.3 mmol/L 3.5-5.2 code = 2823-3) Chloride (test code 100 mmol/L 96-106 = 2075-0) Carbon Dioxide, 28 mmol/L 20-29 Total (test code = 2027-) Calcium (test code 9.2 mg/dL 8.7-10.2 = 97745-5) Protein, Total 6.5 g/dL 6.0-8.5 (test code = 2885-2) Albumin (test code 3.5 g/dL 4.0-5.0 L = 1751-7) Globulin, Total 3.0 g/dL 1.5-4.5 (test code = 96418-8) A/G Ratio (test 1.2 1.2-2.2 code = [...] IU/L 0-44 code = 1742-6) [facility] Description: Comp. Metabolic Panel (14)2020-12-04 02:12:00 Test Item Value Reference Range Interpretation Comments Glucose (test code 315 mg/dL 65-99 H = 2345-7) BUN (test code = 52 mg/dL 6-24 H 3094-0) Creatinine (test 2.32 mg/dL 0.76-1.27 H code = 2160-0) eGFR If NonAfricn 32 >59 L Am (test code = mL/min/1.73 78373-8) eGFR If Africn Am 37 >59 L [facility] currently (test code = mL/min/1.73 [place] [address]-4) compliance with the current recommendations of the [employer] Kid[employer]. [facility] [place] will update re porting as new guidelin es are published from the NKF-ASN Task force.
<br/ >Perfor med by:
[facility] (HD)

BUN/Creatinine 22 9-20 H Ratio (test code = 3097-3) Sodium (test code = 142 mmol/L 435-367 3846-2) Potassium (test 4.3 mmol/L 3.5-5.2 code = 2823-3) Chloride (test code 100 mmol/L 96-106 = 2075-0) Carbon Dioxide, 28 mmol/L 20-29 Total (test code = 2027-) Calcium (test code 9.2 mg/dL 8.7-10.2 = 93625-6) Protein, Total 6.5 g/dL 6.0-8.5 (test code = 2885-2) Albumin (test code 3.5 g/dL 4.0-5.0 L = 175-7) Globulin, Total 3.0 g/dL 1.5-4.5 (test code = 42231-6) A/G Ratio (test 1.2 1.2-2.2 code = [...] IU/L 0-44 code = 1742-6) [facility] Description: Comp. Metabolic Panel (14)2020-12-04 02:12:00 Test Item Value Reference Range Interpretation Comments Glucose (test code 315 mg/dL 65-99 H = 2345-7) BUN (test code = 52 mg/dL 6-24 H 3094-0) Creatinine (test 2.32 mg/dL 0.76-1.27 H code = 2160-0) eGFR If NonAfricn 32 >59 L Am (test code = mL/min/1.73 01588-2) eGFR If Africn Am 37 >59 L [facility] currently (test code = mL/min/1.73 [place] [address]-0) compliance with the current recommendations of the [employer] Kid[employer]. [facility] [place] will update re porting as new guidelin es are published from the NKF-ASN Task force.
<br/ >Perfor med by:
[facility] (HD)

BUN/Creatinine 22 9-20 H Ratio (test code = 3097-3) Sodium (test code = 142 mmol/L 876-793 9736-2) Potassium (test 4.3 mmol/L 3.5-5.2 code = 2823-3) Chloride (test code 100 mmol/L 96-106 = 2075-0) Carbon Dioxide, 28 mmol/L 20-29 Total (test code = 2027-) Calcium (test code 9.2 mg/dL 8.7-10.2 = 27121-0) Protein, Total 6.5 g/dL 6.0-8.5 (test code = 2885-2) Albumin (test code 3.5 g/dL 4.0-5.0 L = 1751-7) Globulin, Total 3.0 g/dL 1.5-4.5 (test code = 72732-7) A/G Ratio (test 1.2 1.2-2.2 code = [...] 22 IU/L 0-44 code = 1742-6) [facility] (14)2020-12-04 02:12:00 Test Item Value Reference Range Interpretation Comments Glucose (test code 315 mg/dL 65-99 H = 2345-7) BUN (test code = 52 mg/dL 6-24 H 3094-0) Creatinine (test 2.32 mg/dL 0.76-1.27 H code = 2160-0) eGFR If NonAfricn 32 >59 L Am (test code = mL/min/1.73 38644-1) eGFR If Africn Am 37 >59 L [facility] currently (test code = mL/min/1.73 [place] [address]-8) compliance with the current recommendations of the [employer] Kid[employer]. [facility] [place] will update re porting as new guidelin es are published from the NKF-ASN Task force.
<br/ >Perfor med by:
[facility] [place] (HD)

BUN/Creatinine 22 9-20 H Ratio (test code = 3097-3) Sodium (test code = 142 mmol/L 844-064 5171-2) Potassium (test 4.3 mmol/L 3.5-5.2 code = 2823-3) Chloride (test code 100 mmol/L 96-106 = 5-0) Carbon Dioxide, 28 mmol/L 20-29 Total (test code = 2027-) Calcium (test code 9.2 mg/dL 8.7-10.2 = 88736-1) Protein, Total 6.5 g/dL 6.0-8.5 (test code = 2885-2) Albumin (test code 3.5 g/dL 4.0-5.0 L = 1751-7) Globulin, Total 3.0 g/dL 1.5-4.5 (test code = 98671-2) A/G Ratio (test 1.2 1.2-2.2 code = [...] (test 22 IU/L 0-44 code = 1742-6) [facility] Description: Comp. Metabolic Panel (14)2020-12-04 02:12:00 Test Item Value Reference Range Interpretation Comments Glucose (test code 315 mg/dL 65-99 H = 2345-7) BUN (test code = 52 mg/dL 6-24 H 3094-0) Creatinine (test 2.32 mg/dL 0.76-1.27 H code = 2160-0) eGFR If NonAfricn 32 >59 L Am (test code = mL/min/1.73 29528-4) eGFR If Africn Am 37 >59 L [facility] currently (test code = mL/min/1.73 [place] 19488-0) compliance with the current recommendations of the National Kid[employer] Foundation. [facility] [place] will update re porting as new guidelin es are published from the NKF-ASN Task force.
<br/ >Perfor med by:
[facility] (HD)

BUN/Creatinine 22 9-20 H Ratio (test code = 3097-3) Sodium (test code = 142 mmol/L 519-582 5595-2) Potassium (test 4.3 mmol/L 3.5-5.2 code = 2823-3) Chloride (test code 100 mmol/L 96-106 = 5-0) Carbon Dioxide, 28 mmol/L 20-29 Total (test code = 2027-) Calcium (test code 9.2 mg/dL 8.7-10.2 = 68566-1) Protein, Total 6.5 g/dL 6.0-8.5 (test code = 2885-2) Albumin (test code 3.5 g/dL 4.0-5.0 L = 1751-7) Globulin, Total 3.0 g/dL 1.5-4.5 (test code = 85113-3) A/G Ratio (test 1.2 1.2-2.2 code = [...] IU/L 0-44 code = 1742-6) [facility] Description: Comp. Metabolic Panel (14)2020-12-04 02:12:00 Test Item Value Reference Range Interpretation Comments Glucose (test code 315 mg/dL 65-99 H = 2345-7) BUN (test code = 52 mg/dL 6-24 H 3094-0) Creatinine (test 2.32 mg/dL 0.76-1.27 H code = 2160-0) eGFR If NonAfricn 32 >59 L Am (test code = mL/min/1.73 91348-9) eGFR If Africn Am 37 >59 L [facility] currently (test code = mL/min/1.73 [place] [address]92-8) compliance with the current recommendations of the National Kid[employer] Foundation. [facility] [place] will update re porting as new guidelin es are published from the NKF-ASN Task force.
<br/ >Perfor med by:
[facility] [place] (HD)

BUN/Creatinine 22 9-20 H Ratio (test code = 3097-3) Sodium (test code = 142 mmol/L 977-688 3801-2) Potassium (test 4.3 mmol/L 3.5-5.2 code = 2823-3) Chloride (test code 100 mmol/L 96-106 = 2074-0) Carbon Dioxide, 28 mmol/L 20-29 Total (test code = 2027-11) Calcium (test code 9.2 mg/dL 8.7-10.2 = 17284-0) Protein, Total 6.5 g/dL 6.0-8.5 (test code = 2885-2) Albumin (test code 3.5 g/dL 4.0-5.0 L = 1751-7) Globulin, Total 3.0 g/dL 1.5-4.5 (test code = 15732-6) A/G Ratio (test 1.2 1.2-2.2 code = [...] 22 IU/L 0-44 code = 1742-6) [facility] (14)2020-12-04 02:12:00 Test Item Value Reference Range Interpretation Comments Glucose (test code 315 mg/dL 65-99 H = 2345-7) BUN (test code = 52 mg/dL 6-24 H 3094-0) Creatinine (test 2.32 mg/dL 0.76-1.27 H code = 2160-0) eGFR If NonAfricn 32 >59 L Am (test code = mL/min/1.73 02135-9) eGFR If Africn Am 37 >59 L [facility] currently (test code = mL/min/1.73 [place] [address]-5) compliance with the current recommendations of the National Kidney Foundation. [facility] [place] will update re porting as new guidelin es are published from the NKF-ASN Task force.
<br/ >Perfor med by:
[facility] [place] (HD)

BUN/Creatinine 22 9-20 H Ratio (test code = 3097-3) Sodium (test code = 142 mmol/L 572-576 7962-2) Potassium (test 4.3 mmol/L 3.5-5.2 code = 2823-3) Chloride (test code 100 mmol/L 96-106 = 2075-0) Carbon Dioxide, 28 mmol/L 20-29 Total (test code = 2027-) Calcium (test code 9.2 mg/dL 8.7-10.2 = 91727-7) Protein, Total 6.5 g/dL 6.0-8.5 (test code = 2885-2) Albumin (test code 3.5 g/dL 4.0-5.0 L = 1751-7) Globulin, Total 3.0 g/dL 1.5-4.5 (test code = 32145-6) A/G Ratio (test 1.2 1.2-2.2 code = [...] IU/L 0-44 code = 1742-6) [facility] Description: Comp. Metabolic Panel (14)2020-12-04 02:12:00 Test Item Value Reference Range Interpretation Comments Glucose (test code 315 mg/dL 65-99 H = 2345-7) BUN (test code = 52 mg/dL 6-24 H 3094-0) Creatinine (test 2.32 mg/dL 0.76-1.27 H code = 2160-0) eGFR If NonAfricn 32 >59 L Am (test code = mL/min/1.73 59729-0) eGFR If Africn Am 37 >59 L [facility] currently (test code = mL/min/1.73 [place] [address]-5) compliance with the current recommendations of the National Kidney Foundation. [facility] [place] will update re porting as new guidelin es are published from the NKF-ASN Task force.
<br/ >Perfor med by:
[facility] (HD)

BUN/Creatinine 22 9-20 H Ratio (test code = 3097-3) Sodium (test code = 142 mmol/L 242-602 7201-2) Potassium (test 4.3 mmol/L 3.5-5.2 code = 2823-3) Chloride (test code 100 mmol/L 96-106 = 2075-0) Carbon Dioxide, 28 mmol/L 20-29 Total (test code = 2027-) Calcium (test code 9.2 mg/dL 8.7-10.2 = 06409-0) Protein, Total 6.5 g/dL 6.0-8.5 (test code = 2885-2) Albumin (test code 3.5 g/dL 4.0-5.0 L = 1751-7) Globulin, Total 3.0 g/dL 1.5-4.5 (test code = 60232-9) A/G Ratio (test 1.2 1.2-2.2 code = [...] >59 L Am (test code = mL/min/1.73 45437-8) eGFR If Africn Am 37 >59 L [facility] currently (test code = mL/min/1.73 [place] [address]-1) compliance with the current recommendations of the [employer] Kid[employer] Foundation. [facility] [place] will update re porting as new guidelin es are published from the NKF-ASN Task force.
<br/ >Perfor med by:
[facility] (HD)

BUN/Creatinine 22 9-20 H Ratio (test code = 3097-3) Sodium (test code = 142 mmol/L 708-681 7422-2) Potassium (test 4.3 mmol/L 3.5-5.2 code = 2823-3) Chloride (test code 100 mmol/L 96-106 = 2075-0) Carbon Dioxide, 28 mmol/L 20-29 Total (test code = 2027-) Calcium (test code 9.2 mg/dL 8.7-10.2 = 12061-5) Protein, Total 6.5 g/dL 6.0-8.5 (test code = 2885-2) Albumin (test code 3.5 g/dL 4.0-5.0 L = 1751-7) Globulin, Total 3.0 g/dL 1.5-4.5 (test code = 77457-3) A/G Ratio (test 1.2 1.2-2.2 code = [...] IU/L 0-44 code = 1742-6) [facility] Description: Comp. Metabolic Panel (14)2020-12-04 02:12:00 Test Item Value Reference Range Interpretation Comments Glucose (test code 315 mg/dL 65-99 H = 2345-7) BUN (test code = 52 mg/dL 6-24 H 3094-0) Creatinine (test 2.32 mg/dL 0.76-1.27 H code = 2160-0) eGFR If NonAfricn 32 >59 L Am (test code = mL/min/1.73 74247-7) eGFR If Africn Am 37 >59 L [facility] currently (test code = mL/min/1.73 [place] [address]-9) compliance with the current recommendations of the [employer]. [facility] [place] will update re porting as new guidelin es are published from the NKF-ASN Task force.
<br/ >Perfor med by:
[facility] [place] ([place])

BUN/Creatinine 22 9-20 H Ratio (test code = 3097-3) Sodium (test code = 142 mmol/L 856-012 3546-2) Potassium (test 4.3 mmol/L 3.5-5.2 code = 2823-3) Chloride (test code 100 mmol/L 96-106 = 2075-0) Carbon Dioxide, 28 mmol/L 20-29 Total (test code = 2027-) Calcium (test code 9.2 mg/dL 8.7-10.2 = 54313-1) Protein, Total 6.5 g/dL 6.0-8.5 (test code = 2885-2) Albumin (test code 3.5 g/dL 4.0-5.0 L = 1751-7) Globulin, Total 3.0 g/dL 1.5-4.5 (test code = 77160-2) A/G Ratio (test 1.2 1.2-2.2 code = [...] IU/L 0-44 code = 1742-6) [facility] Description: Comp. Metabolic Panel (14)2020-12-04 02:12:00 Test Item Value Reference Range Interpretation Comments Glucose (test code 315 mg/dL 65-99 H = 2345-7) BUN (test code = 52 mg/dL 6-24 H 3094-0) Creatinine (test 2.32 mg/dL 0.76-1.27 H code = 2160-0) eGFR If NonAfricn 32 >59 L Am (test code = mL/min/1.73 11678-3) eGFR If Africn Am 37 >59 L [facility] currently (test code = mL/min/1.73 [place] 05208-3) compliance with the current recommendations of the [employer]. [facility] [place] will update re porting as new guidelin es are published from the NKF-ASN Task force.
<br/ >Perfor med by:
[facility] [place] [facility] ([place])

BUN/Creatinine 22 9-20 H Ratio (test code = 3097-3) Sodium (test code = 142 mmol/L 578-740 3455-2) Potassium (test 4.3 mmol/L 3.5-5.2 code = 2823-3) Chloride (test code 100 mmol/L 96-106 = 2075-0) Carbon Dioxide, 28 mmol/L 20-29 Total (test code = 2027-) Calcium (test code 9.2 mg/dL 8.7-10.2 = 08569-9) Protein, Total 6.5 g/dL 6.0-8.5 (test code = 2885-2) Albumin (test code 3.5 g/dL 4.0-5.0 L = 1751-7) Globulin, Total 3.0 g/dL 1.5-4.5 (test code = 82392-0) A/G Ratio (test 1.2 1.2-2.2 code = [...] IU/L 0-44 code = 1742-6) [facility] Description: Comp. Metabolic Panel (14)2020-12-04 02:12:00 Test Item Value Reference Range Interpretation Comments Glucose (test code 315 mg/dL 65-99 H = 2345-7) BUN (test code = 52 mg/dL 6-24 H 3094-0) Creatinine (test 2.32 mg/dL 0.76-1.27 H code = 2160-0) eGFR If NonAfricn 32 >59 L Am (test code = mL/min/1.73 67953-2) eGFR If Africn Am 37 >59 L [facility] currently (test code = mL/min/1.73 [place] 23334-2) compliance with the current recommendations of the [employer]. [facility] [place] will update re porting as new guidelin es are published from the NKF-ASN Task force.
<br/ >Perfor med by:
[facility] [place] ([place])

BUN/Creatinine 22 9-20 H Ratio (test code = 3097-3) Sodium (test code = 142 mmol/L 515-103 8646-2) Potassium (test 4.3 mmol/L 3.5-5.2 code = 2823-3) Chloride (test code 100 mmol/L 96-106 = 2075-0) Carbon Dioxide, 28 mmol/L 20-29 Total (test code = 2027-) Calcium (test code 9.2 mg/dL 8.7-10.2 = 77753-0) Protein, Total 6.5 g/dL 6.0-8.5 (test code = 2885-2) Albumin (test code 3.5 g/dL 4.0-5.0 L = 1751-7) Globulin, Total 3.0 g/dL 1.5-4.5 (test code = 15308-7) A/G Ratio (test 1.2 1.2-2.2 code = [...] IU/L 0-44 code = 1742-6) [facility] Description: Comp. Metabolic Panel (14)2020-12-04 02:12:00 Test Item Value Reference Range Interpretation Comments Glucose (test code 315 mg/dL 65-99 H = 2345-7) BUN (test code = 52 mg/dL 6-24 H 3094-0) Creatinine (test 2.32 mg/dL 0.76-1.27 H code = 2160-0) eGFR If NonAfricn 32 >59 L Am (test code = mL/min/1.73 57062-2) eGFR If Africn Am 37 >59 L [facility] currently (test code = mL/min/1.73 [place] [address]-5) compliance with the current recommendations of the [employer]. [facility] [place] will update re porting as new guidelin es are published from the NKF-ASN Task force.
<br/ >Perfor med by:
[facility] [place] [facility] ([place])

BUN/Creatinine 22 9-20 H Ratio (test code = 3097-3) Sodium (test code = 142 mmol/L 518-401 4019-2) Potassium (test 4.3 mmol/L 3.5-5.2 code = 2823-3) Chloride (test code 100 mmol/L 96-106 = 2075-0) Carbon Dioxide, 28 mmol/L 20-29 Total (test code = 2027-) Calcium (test code 9.2 mg/dL 8.7-10.2 = 72706-3) Protein, Total 6.5 g/dL 6.0-8.5 (test code = 2885-2) Albumin (test code 3.5 g/dL 4.0-5.0 L = 1751-7) Globulin, Total 3.0 g/dL 1.5-4.5 (test code = 38452-6) A/G Ratio (test 1.2 1.2-2.2 code = [...] 22 IU/L 0-44 code = 1742-6) [facility] (14)2020-12-04 02:12:00 Test Item Value Reference Range Interpretation Comments Glucose (test code 315 mg/dL 65-99 H = 2345-7) BUN (test code = 52 mg/dL 6-24 H 3094-0) Creatinine (test 2.32 mg/dL 0.76-1.27 H code = 2160-0) eGFR If NonAfricn 32 >59 L Am (test code = mL/min/1.73 29982-6) eGFR If Africn Am 37 >59 L [facility] currently (test code = mL/min/1.73 [place] [address]-8) compliance with the current recommendations of the [employer]. [facility] [place] will update re porting as new guidelin es are published from the NKF-ASN Task force.
<br/ >Perfor med by:
[facility] [place] ([place])

BUN/Creatinine 22 9-20 H Ratio (test code = 3097-3) Sodium (test code = 142 mmol/L 830-571 1285-2) Potassium (test 4.3 mmol/L 3.5-5.2 code = 2823-3) Chloride (test code 100 mmol/L 96-106 = 2075-0) Carbon Dioxide, 28 mmol/L 20-29 Total (test code = 2027-) Calcium (test code 9.2 mg/dL 8.7-10.2 = 82649-7) Protein, Total 6.5 g/dL 6.0-8.5 (test code = 2885-2) Albumin (test code 3.5 g/dL 4.0-5.0 L = 1751-7) Globulin, Total 3.0 g/dL 1.5-4.5 (test code = 39184-8) A/G Ratio (test 1.2 1.2-2.2 code = [...] >59 L Am (test code = mL/min/1.73 51261-3) eGFR If Africn Am 37 >59 L [facility] currently (test code = mL/min/1.73 [place] 57686-7) compliance with the current recommendations of the [employer]. [facility] [place] will update re porting as new guidelin es are published from the NKF-ASN Task force.
<br/ >Perfor med by:
[facility] [place] [facility] ([place])

BUN/Creatinine 22 9-20 H Ratio (test code = 3097-3) Sodium (test code = 142 mmol/L 951-500 9818-2) Potassium (test 4.3 mmol/L 3.5-5.2 code = 2823-3) Chloride (test code 100 mmol/L 96-106 = 2075-0) Carbon Dioxide, 28 mmol/L 20-29 Total (test code = 2027-) Calcium (test code 9.2 mg/dL 8.7-10.2 = 25292-3) Protein, Total 6.5 g/dL 6.0-8.5 (test code = 2885-2) Albumin (test code 3.5 g/dL 4.0-5.0 L = 1751-7) Globulin, Total 3.0 g/dL 1.5-4.5 (test code = 52233-0) A/G Ratio (test 1.2 1.2-2.2 code = [...] IU/L 0-44 code = 1742-6) [facility] Description: Comp. Metabolic Panel (14)2020-12-04 02:12:00 Test Item Value Reference Range Interpretation Comments Glucose (test code 315 mg/dL 65-99 H = 2345-7) BUN (test code = 52 mg/dL 6-24 H 3094-0) Creatinine (test 2.32 mg/dL 0.76-1.27 H code = 2160-0) eGFR If NonAfricn 32 >59 L Am (test code = mL/min/1.73 89208-6) eGFR If Africn Am 37 >59 L [facility] currently (test code = mL/min/1.73 [place] 07768-0) compliance with the current recommendations of the [employer]. [facility] [place] will update re porting as new guidelin es are published from the NKF-ASN Task force.
<br/ >Perfor med by:
[facility] [place] ([place])

BUN/Creatinine 22 9-20 H Ratio (test code = 3097-3) Sodium (test code = 142 mmol/L 085-679 7917-2) Potassium (test 4.3 mmol/L 3.5-5.2 code = 2823-3) Chloride (test code 100 mmol/L 96-106 = 2075-0) Carbon Dioxide, 28 mmol/L 20-29 Total (test code = 2027-) Calcium (test code 9.2 mg/dL 8.7-10.2 = 78578-1) Protein, Total 6.5 g/dL 6.0-8.5 (test code = 2885-2) Albumin (test code 3.5 g/dL 4.0-5.0 L = 1751-7) Globulin, Total 3.0 g/dL 1.5-4.5 (test code = 22842-5) A/G Ratio (test 1.2 1.2-2.2 code = [...] IU/L 0-44 code = 1742-6) [facility] Description: Comp. Metabolic Panel (14)2020-12-04 02:12:00 Test Item Value Reference Range Interpretation Comments Glucose (test code 315 mg/dL 65-99 H = 2345-7) BUN (test code = 52 mg/dL 6-24 H 3094-0) Creatinine (test 2.32 mg/dL 0.76-1.27 H code = 2160-0) eGFR If NonAfricn 32 >59 L Am (test code = mL/min/1.73 87460-6) eGFR If Africn Am 37 >59 L [facility] currently (test code = mL/min/1.73 [place] 97974-0) compliance with the current recommendations of the [employer]. [facility] [place] will update re porting as new guidelin es are published from the NKF-ASN Task force.
<br/ >Perfor med by:
[facility] [place] ([place])

BUN/Creatinine 22 9-20 H Ratio (test code = 3097-3) Sodium (test code = 142 mmol/L 363-156 2266-2) Potassium (test 4.3 mmol/L 3.5-5.2 code = 2823-3) Chloride (test code 100 mmol/L 96-106 = 2075-0) Carbon Dioxide, 28 mmol/L 20-29 Total (test code = 2027-) Calcium (test code 9.2 mg/dL 8.7-10.2 = 77685-1) Protein, Total 6.5 g/dL 6.0-8.5 (test code = 2885-2) Albumin (test code 3.5 g/dL 4.0-5.0 L = 1751-7) Globulin, Total 3.0 g/dL 1.5-4.5 (test code = 62647-7) A/G Ratio (test 1.2 1.2-2.2 code = [...] IU/L 0-44 code = 1742-6) [facility] Description: Comp. Metabolic Panel (14)2020-12-04 02:12:00 Test Item Value Reference Range Interpretation Comments Glucose (test code 315 mg/dL 65-99 H = 2345-7) BUN (test code = 52 mg/dL 6-24 H 3094-0) Creatinine (test 2.32 mg/dL 0.76-1.27 H code = 2160-0) eGFR If NonAfricn 32 >59 L Am (test code = mL/min/1.73 20051-0) eGFR If Africn Am 37 >59 L [facility] currently (test code = mL/min/1.73 reports eGFR in 32011-3) compliance with the current recommendations of the [employer]. [facility] [place] will update re porting as new guidelin es are published from the NKF-ASN Task force.
<br/ >Perfor med by:
[facility] [place] ([place])

BUN/Creatinine 22 9-20 H Ratio (test code = 3097-3) Sodium (test code = 142 mmol/L 512-545 4908-2) Potassium (test 4.3 mmol/L 3.5-5.2 code = 2823-3) Chloride (test code 100 mmol/L 96-106 = 2075-0) Carbon Dioxide, 28 mmol/L 20-29 Total (test code = 2027-) Calcium (test code 9.2 mg/dL 8.7-10.2 = 61065-2) Protein, Total 6.5 g/dL 6.0-8.5 (test code = 2885-2) Albumin (test code 3.5 g/dL 4.0-5.0 L = 1751-7) Globulin, Total 3.0 g/dL 1.5-4.5 (test code = 48905-3) A/G Ratio (test 1.2 1.2-2.2 code = [...] IU/L 0-44 code = 1742-6) [facility] Description: Natriuretic peptide B [Mass/volume] in Serum or [id number] 14:32:00 Test Item Value Reference Range Interpretation Comments B-Type Natriuretic Peptide (test 682.3 pg/mL 0.0-100.0 H code = 28546-8) [facility] Description: Natriuretic peptide B [Mass/volume] in Serum or [id number] 14:32:00 Test Item Value Reference Range Interpretation Comments B-Type Natriuretic Peptide (test 682.3 pg/mL 0.0-100.0 H code = 08453-9) [facility] Description: Natriuretic peptide B [Mass/volume] in Serum or [id number] 14:32:00 Test Item Value Reference Range Interpretation Comments B-Type Natriuretic Peptide (test 682.3 pg/mL 0.0-100.0 H code = 02467-6) [facility]: Natriuretic peptide B [Mass/volume] in Serum or [id number] 14:32:00 Test Item Value Reference Range Interpretation Comments B-Type Natriuretic Peptide (test 682.3 pg/mL 0.0-100.0 H code = 82175-2) [facility]: Natriuretic peptide B [Mass/volume] in Serum or [id number] 14:32:00 Test Item Value Reference Range Interpretation Comments B-Type Natriuretic Peptide (test 682.3 pg/mL 0.0-100.0 H code = 61343-4) [facility] Description: Natriuretic peptide B [Mass/volume] in Serum or [id number] 14:32:00 Test Item Value Reference Range Interpretation Comments B-Type Natriuretic Peptide (test 682.3 pg/mL 0.0-100.0 H code = 29412-7) [facility]: Natriuretic peptide B [Mass/volume] in Serum or [id number] 14:32:00 Test Item Value Reference Range Interpretation Comments B-Type Natriuretic Peptide (test 682.3 pg/mL 0.0-100.0 H code = 79880-2) [facility] Description: Natriuretic peptide B [Mass/volume] in Serum or [id number] 14:32:00 Test Item Value Reference Range Interpretation Comments B-Type Natriuretic Peptide (test 682.3 pg/mL 0.0-100.0 H code = 93044-3) [facility] Description: Natriuretic peptide B [Mass/volume] in Serum or [id number] 14:32:00 Test Item Value Reference Range Interpretation Comments B-Type Natriuretic Peptide (test 682.3 pg/mL 0.0-100.0 H code = 69718-5) [facility]: Natriuretic peptide B [Mass/volume] in Serum or [id number] 14:32:00 Test Item Value Reference Range Interpretation Comments B-Type Natriuretic Peptide (test 682.3 pg/mL 0.0-100.0 H code = 87987-2) [facility] Description: Natriuretic peptide B [Mass/volume] in Serum or [id number] 14:32:00 Test Item Value Reference Range Interpretation Comments B-Type Natriuretic Peptide (test 682.3 pg/mL 0.0-100.0 H code = 85578-8) [facility] Description: Natriuretic peptide B [Mass/volume] in Serum or [id number] 14:32:00 Test Item Value Reference Range Interpretation Comments B-Type Natriuretic Peptide (test 682.3 pg/mL 0.0-100.0 H code = 78183-7) [facility] Description: Natriuretic peptide B [Mass/volume] in Serum or [id number] 14:32:00 Test Item Value Reference Range Interpretation Comments B-Type Natriuretic Peptide (test 682.3 pg/mL 0.0-100.0 H code = 23065-7) [facility] Description: Natriuretic peptide B [Mass/volume] in Serum or [id number] 14:32:00 Test Item Value Reference Range Interpretation Comments B-Type Natriuretic Peptide (test 682.3 pg/mL 0.0-100.0 H code = 26123-5) [facility] Description: Natriuretic peptide B [Mass/volume] in Serum or [id number] 14:32:00 Test Item Value Reference Range Interpretation Comments B-Type Natriuretic Peptide (test 682.3 pg/mL 0.0-100.0 H code = 92404-2) [facility] Description: Natriuretic peptide B [Mass/volume] in Serum or [id number] 14:32:00 Test Item Value Reference Range Interpretation Comments B-Type Natriuretic Peptide (test 682.3 pg/mL 0.0-100.0 H code = 88662-5) [facility] Description: Natriuretic peptide B [Mass/volume] in Serum or [id number] 14:32:00 Test Item Value Reference Range Interpretation Comments B-Type Natriuretic Peptide (test 682.3 pg/mL 0.0-100.0 H code = 23899-1) [facility] Description: Natriuretic peptide B [Mass/volume] in Serum or [id number] 14:32:00 Test Item Value Reference Range Interpretation Comments B-Type Natriuretic Peptide (test 682.3 pg/mL 0.0-100.0 H code = 07175-7) [facility] Description: Natriuretic peptide B [Mass/volume] in Serum or [id number] 14:32:00 Test Item Value Reference Range Interpretation Comments B-Type Natriuretic Peptide (test 682.3 pg/mL 0.0-100.0 H code = 46790-2) [facility] Description: Natriuretic peptide B [Mass/volume] in Serum or [id number] 14:32:00 Test Item Value Reference Range Interpretation Comments B-Type Natriuretic Peptide (test 682.3 pg/mL 0.0-100.0 H code = 16087-9) [facility] Description: Parathyrin.intact [Mass/volume] in Serum or [id number] 08:48:00 Test Item Value Reference Range Interpretation Comments PTH, Intact (test code = 2731-8) 147 pg/mL 15-65 H [facility] Description: Parathyrin.intact [Mass/volume] in Serum or [id number] 08:48:00 Test Item Value Reference Range Interpretation Comments PTH, Intact (test code = 2731-8) 147 pg/mL 15-65 H [facility] Description: Parathyrin.intact [Mass/volume] in Serum or [id number] 08:48:00 Test Item Value Reference Range Interpretation Comments PTH, Intact (test code = 2731-8) 147 pg/mL 15-65 H [facility] Description: Parathyrin.intact [Mass/volume] in Serum or [id number] 08:48:00 Test Item Value Reference Range Interpretation Comments PTH, Intact (test code = 2731-8) 147 pg/mL 15-65 H [facility] Description: Parathyrin.intact [Mass/volume] in Serum or [id number] 08:48:00 Test Item Value Reference Range Interpretation Comments PTH, Intact (test code = 2731-8) 147 pg/mL 15-65 H [facility] Description: Parathyrin.intact [Mass/volume] in Serum or [id number] 08:48:00 Test Item Value Reference Range Interpretation Comments PTH, Intact (test code = 2731-8) 147 pg/mL 15-65 H [facility]: Parathyrin.intact [Mass/volume] in Serum or [id number] 08:48:00 Test Item Value Reference Range Interpretation Comments PTH, Intact (test code = 2731-8) 147 pg/mL 15-65 H [facility] Description: Parathyrin.intact [Mass/volume] in Serum or [id number] 08:48:00 Test Item Value Reference Range Interpretation Comments PTH, Intact (test code = 2731-8) 147 pg/mL 15-65 H [facility] Description: Parathyrin.intact [Mass/volume] in Serum or [id number] 08:48:00 Test Item Value Reference Range Interpretation Comments PTH, Intact (test code = 2731-8) 147 pg/mL 15-65 H [facility] Description: Parathyrin.intact [Mass/volume] in Serum or [id number] 08:48:00 Test Item Value Reference Range Interpretation Comments PTH, Intact (test code = 2731-8) 147 pg/mL 15-65 H [facility] Description: Parathyrin.intact [Mass/volume] in Serum or [id number] 08:48:00 Test Item Value Reference Range Interpretation Comments PTH, Intact (test code = 2731-8) 147 pg/mL 15-65 H [facility] Description: Parathyrin.intact [Mass/volume] in Serum or [id number] 08:48:00 Test Item Value Reference Range Interpretation Comments PTH, Intact (test code = 2731-8) 147 pg/mL 15-65 H [facility] Description: Parathyrin.intact [Mass/volume] in Serum or [id number] 08:48:00 Test Item Value Reference Range Interpretation Comments PTH, Intact (test code = 2731-8) 147 pg/mL 15-65 H [facility] Description: Parathyrin.intact [Mass/volume] in Serum or [id number] 08:48:00 Test Item Value Reference Range Interpretation Comments PTH, Intact (test code = 2731-8) 147 pg/mL 15-65 H [facility] Description: Parathyrin.intact [Mass/volume] in Serum or [id number] 08:48:00 Test Item Value Reference Range Interpretation Comments PTH, Intact (test code = 2731-8) 147 pg/mL 15-65 H [facility] Description: Parathyrin.intact [Mass/volume] in Serum or [id number] 08:48:00 Test Item Value Reference Range Interpretation Comments PTH, Intact (test code = 2731-8) 147 pg/mL 15-65 H [facility] Description: Parathyrin.intact [Mass/volume] in Serum or [id number] 08:48:00 Test Item Value Reference Range Interpretation Comments PTH, Intact (test code = 2731-8) 147 pg/mL 15-65 H [facility] Description: Parathyrin.intact [Mass/volume] in Serum or [id number] 08:48:00 Test Item Value Reference Range Interpretation Comments PTH, Intact (test code = 2731-8) 147 pg/mL 15-65 H [facility] Description: Parathyrin.intact [Mass/volume] in Serum or [id number] 08:48:00 Test Item Value Reference Range Interpretation Comments PTH, Intact (test code = 2731-8) 147 pg/mL 15-65 H [facility] Description: Parathyrin.intact [Mass/volume] in Serum or [id number] 08:48:00 Test Item Value Reference Range Interpretation [...] by:
[facility] [place] ()

[facility] Description: Hemoglobin A1c/Hemoglobin.total in Blood 2020-10-30 05:01:00 Test Item Value Reference Range Interpretation Comments Hemoglobin A1c (test code 8.4 % 4.8-5.6 H = 4548-4) . Prediabetes: 5. 7 - 6.4 Diabetes : >6.4 Glycemic control for adults with diabetes: <7.0

P erformed by:
[facility] [place] ()

[facility] Description: Hemoglobin A1c/Hemoglobin.total in Blood 2020-10-30 05:01:00 Test Item Value Reference Range Interpretation Comments Hemoglobin A1c (test code 8.4 % 4.8-5.6 H = 4548-4) . Prediabetes: 5. 7 - 6.4 Diabetes : >6.4 Glycemic control for adults with diabetes: <7.0

P erformed by:
[facility] [place] ()

[facility] Description: Hemoglobin A1c/Hemoglobin.total in Blood 2020-10-30 05:01:00 Test Item Value Reference Range Interpretation Comments Hemoglobin A1c (test code 8.4 % 4.8-5.6 H = 4548-4) . Prediabetes: 5. 7 - 6.4 Diabetes : >6.4 Glycemic control for adults with diabetes: <7.0

P erformed by:
[facility] [place] ()

[facility] Description: Hemoglobin A1c/Hemoglobin.total in Blood 2020-10-30 05:01:00 Test Item Value Reference Range Interpretation Comments Hemoglobin A1c (test code 8.4 % 4.8-5.6 H = 4548-4) . Prediabetes: 5. 7 - 6.4 Diabetes : >6.4 Glycemic control for adults with diabetes: <7.0

P erformed by:
[facility] [place] ()

[facility] Description: Hemoglobin A1c/Hemoglobin.total in [...] by:
[facility] [place] ()

[facility] Description: Hemoglobin A1c/Hemoglobin.total in Blood 2020-10-30 05:01:00 Test Item Value Reference Range Interpretation Comments Hemoglobin A1c (test code 8.4 % 4.8-5.6 H = 4548-4) . Prediabetes: 5. 7 - 6.4 Diabetes : >6.4 Glycemic control for adults with diabetes: <7.0

P erformed by:
[facility] [place] ()

[facility] Description: Hemoglobin A1c/Hemoglobin.total in Blood 2020-10-30 05:01:00 Test Item Value Reference Range Interpretation Comments Hemoglobin A1c (test code 8.4 % 4.8-5.6 H = 4548-4) . Prediabetes: 5. 7 - 6.4 Diabetes : >6.4 Glycemic control for adults with diabetes: <7.0

P erformed by:
[facility] [place] ()

[facility] Description: Hemoglobin A1c/Hemoglobin.total in Blood 2020-10-30 05:01:00 Test Item Value Reference Range Interpretation Comments Hemoglobin A1c (test code 8.4 % 4.8-5.6 H = 4548-4) . Prediabetes: 5. 7 - 6.4 Diabetes : >6.4 Glycemic control for adults with diabetes: <7.0

P erformed by:
[facility] [place] ()

[facility] Description: Hemoglobin A1c/Hemoglobin.total in Blood 2020-10-30 05:01:00 Test Item Value Reference Range Interpretation Comments Hemoglobin A1c (test code 8.4 % 4.8-5.6 H = 4548-4) . Prediabetes: 5. 7 - 6.4 Diabetes : >6.4 Glycemic control for adults with diabetes: <7.0

P erformed by:
[facility] [place] ()

[facility] Description: Hemoglobin A1c/Hemoglobin.total in Blood 2020-10-30 05:01:00 Test Item Value Reference Range Interpretation Comments Hemoglobin A1c (test code 8.4 % 4.8-5.6 H = 4548-4) . Prediabetes: 5. 7 - 6.4 Diabetes : >6.4 Glycemic control for adults with diabetes: <7.0

P erformed by:
[facility] ([place])

[facility] Description: Microscopic Nmqdkploqst9556-77-40 04:44:00 Test Item Value Reference Range Interpretation Comments WBC (test code = 5821-4) None seen 0-5 RBC (test code = 65097-7) None seen 0-2 Epithelial Cells (non renal) (test None seen 0-10 code = 5787-7) Epithelial Cells (renal) (test code = 45628-1) Casts (test code = 94491-2) None seen None seen Cast Type (test code = 53571-2) Crystals (test code = 5783-6) Crystal Type (test code = 5782-8) Mucus Threads (test code = 8247-9) Bacteria (test code = 5769-5) None seen None seen/Few Yeast (test code = 5822-2) Trichomonas (test code = 5813-1) Comment (test code = 87094-4) [facility] Description: Microscopic Mernnzfqgiu6877-54-81 04:44:00 Test Item Value Reference Range Interpretation Comments WBC (test code = 5821-4) None seen 0-5 RBC (test code = 59202-5) None seen 0-2 Epithelial Cells (non renal) (test None seen 0-10 code = 5787-7) Epithelial Cells (renal) (test code = 80512-5) Casts (test code = 66066-2) None seen None seen Cast Type (test code = 12735-7) Crystals (test code = 5783-6) Crystal Type (test code = 5782-8) Mucus Threads (test code = 8247-9) Bacteria (test code = 5769-5) None seen None seen/Few Yeast (test code = 5822-2) Trichomonas (test code = 5813-1) Comment (test code = 67535-9) [facility] Description: Microscopic Qoucluxdyxr0752-50-83 04:44:00 Test Item Value Reference Range Interpretation Comments WBC (test code = 5821-4) None seen 0-5 RBC (test code = 71005-0) None seen 0-2 Epithelial Cells (non renal) (test None seen 0-10 code = 5787-7) Epithelial Cells (renal) (test code = 07676-1) Casts (test code = 57562-1) None seen None seen Cast Type (test code = 61780-5) Crystals (test code = 5783-6) Crystal Type (test code = 5782-8) Mucus Threads (test code = 8247-9) Bacteria (test code = 5769-5) None seen None seen/Few Yeast (test code = 5822-2) Trichomonas (test code = 5813-1) Comment (test code = 06007-1) [facility] Description: Microscopic Hhltyrmrzcy3817-27-32 04:44:00 Test Item Value Reference Range Interpretation Comments WBC (test code = 5821-4) None seen 0-5 RBC (test code = 48342-4) None seen 0-2 Epithelial Cells (non renal) (test None seen 0-10 code = 5787-7) Epithelial Cells (renal) (test code = 21263-0) Casts (test code = 79444-9) None seen None seen Cast Type (test code = 25997-5) Crystals (test code = 5783-6) Crystal Type (test code = 5782-8) Mucus Threads (test code = 8247-9) Bacteria (test code = 5769-5) None seen None seen/Few Yeast (test code = 5822-2) Trichomonas (test code = 5813-1) Comment (test code = 25181-6) [facility] Description: Microscopic Mtzgszfnwmo5196-23-55 04:44:00 Test Item Value Reference Range Interpretation Comments WBC (test code = 5821-4) None seen 0-5 RBC (test code = 81095-1) None seen 0-2 Epithelial Cells (non renal) (test None seen 0-10 code = 5787-7) Epithelial Cells (renal) (test code = 75291-7) Casts (test code = 83816-5) None seen None seen Cast Type (test code = 64776-2) Crystals (test code = 5783-6) Crystal Type (test code = 5782-8) Mucus Threads (test code = 8247-9) Bacteria (test code = 5769-5) None seen None seen/Few Yeast (test code = 5822-2) Trichomonas (test code = 5813-1) Comment (test code = 80061-0) [facility] Description: Microscopic Zontkixtybs5739-52-76 04:44:00 Test Item Value Reference Range Interpretation Comments WBC (test code = 5821-4) None seen 0-5 RBC (test code = 03692-7) None seen 0-2 Epithelial Cells (non renal) (test None seen 0-10 code = 5787-7) Epithelial Cells (renal) (test code = 42933-2) Casts (test code = 34189-7) None seen None seen Cast Type (test code = 01160-1) Crystals (test code = 5783-6) Crystal Type (test code = 5782-8) Mucus Threads (test code = 8247-9) Bacteria (test code = 5769-5) None seen None seen/Few Yeast (test code = 5822-2) Trichomonas (test code = 5813-1) Comment (test code = 36476-4) [facility] Description: Microscopic Hmcfwuejhif5526-92-70 04:44:00 Test Item Value Reference Range Interpretation Comments WBC (test code = 5821-4) None seen 0-5 RBC (test code = 08859-3) None seen 0-2 Epithelial Cells (non renal) (test None seen 0-10 code = 5787-7) Epithelial Cells (renal) (test code = 78936-7) Casts (test code = 33926-4) None seen None seen Cast Type (test code = 38462-5) Crystals (test code = 5783-6) Crystal Type (test code = 5782-8) Mucus Threads (test code = 8247-9) Bacteria (test code = 5769-5) None seen None seen/Few Yeast (test code = 5822-2) Trichomonas (test code = 5813-1) Comment (test code = 50340-6) [facility] Description: Microscopic Okwcxfnutpy4020-17-61 04:44:00 Test Item Value Reference Range Interpretation Comments WBC (test code = 5821-4) None seen 0-5 RBC (test code = 77133-3) None seen 0-2 Epithelial Cells (non renal) (test None seen 0-10 code = 5787-7) Epithelial Cells (renal) (test code = 18761-9) Casts (test code = 80337-7) None seen None seen Cast Type (test code = 47609-5) Crystals (test code = 5783-6) Crystal Type (test code = 5782-8) Mucus Threads (test code = 8247-9) Bacteria (test code = 5769-5) None seen None seen/Few Yeast (test code = 5822-2) Trichomonas (test code = 5813-1) Comment (test code = 24215-1) [facility] Description: Microscopic Gfjnfvkrcvz1382-21-00 04:44:00 Test Item Value Reference Range Interpretation Comments WBC (test code = 5821-4) None seen 0-5 RBC (test code = 38180-2) None seen 0-2 Epithelial Cells (non renal) (test None seen 0-10 code = 5787-7) Epithelial Cells (renal) (test code = 60967-7) Casts (test code = 83256-4) None seen None seen Cast Type (test code = 92045-6) Crystals (test code = 5783-6) Crystal Type (test code = 5782-8) Mucus Threads (test code = 8247-9) Bacteria (test code = 5769-5) None seen None seen/Few Yeast (test code = 5822-2) Trichomonas (test code = 5813-1) Comment (test code = 86764-7) [facility] Description: Microscopic Ycdvzmlguhr3407-77-45 04:44:00 Test Item Value Reference Range Interpretation Comments WBC (test code = 5821-4) None seen 0-5 RBC (test code = 11371-4) None seen 0-2 Epithelial Cells (non renal) (test None seen 0-10 code = 5787-7) Epithelial Cells (renal) (test code = 09766-6) Casts (test code = 13615-4) None seen None seen Cast Type (test code = 76145-4) Crystals (test code = 5783-6) Crystal Type (test code = 5782-8) Mucus Threads (test code = 8247-9) Bacteria (test code = 5769-5) None seen None seen/Few Yeast (test code = 5822-2) Trichomonas (test code = 5813-1) Comment (test code = 46505-3) [facility] Description: Microscopic Cjohbqynngv1268-38-71 04:44:00 Test Item Value Reference Range Interpretation Comments WBC (test code = 5821-4) None seen 0-5 RBC (test code = 65488-3) None seen 0-2 Epithelial Cells (non renal) (test None seen 0-10 code = 5787-7) Epithelial Cells (renal) (test code = 71435-3) Casts (test code = 22173-1) None seen None seen Cast Type (test code = 19368-5) Crystals (test code = 5783-6) Crystal Type (test code = 5782-8) Mucus Threads (test code = 8247-9) Bacteria (test code = 5769-5) None seen None seen/Few Yeast (test code = 5822-2) Trichomonas (test code = 5813-1) Comment (test code = 92208-0) [facility] Description: Microscopic Abktiplzfzk2799-61-32 04:44:00 Test Item Value Reference Range Interpretation Comments WBC (test code = 5821-4) None seen 0-5 RBC (test code = 09067-7) None seen 0-2 Epithelial Cells (non renal) (test None seen 0-10 code = 5787-7) Epithelial Cells (renal) (test code = 10969-9) Casts (test code = 48708-5) None seen None seen Cast Type (test code = 14433-0) Crystals (test code = 5783-6) Crystal Type (test code = 5782-8) Mucus Threads (test code = 8247-9) Bacteria (test code = 5769-5) None seen None seen/Few Yeast (test code = 5822-2) Trichomonas (test code = 5813-1) Comment (test code = 35139-7) [facility] Description: Microscopic Onmvbhvkeas9671-41-43 04:44:00 Test Item Value Reference Range Interpretation Comments WBC (test code = 5821-4) None seen 0-5 RBC (test code = 03471-4) None seen 0-2 Epithelial Cells (non renal) (test None seen 0-10 code = 5787-7) Epithelial Cells (renal) (test code = 81060-0) Casts (test code = 66390-9) None seen None seen Cast Type (test code = 11623-8) Crystals (test code = 5783-6) Crystal Type (test code = 5782-8) Mucus Threads (test code = 8247-9) Bacteria (test code = 5769-5) None seen None seen/Few Yeast (test code = 5822-2) Trichomonas (test code = 5813-1) Comment (test code = 64153-4) [facility] Description: Microscopic Ozdezxbmzan8694-78-89 04:44:00 Test Item Value Reference Range Interpretation Comments WBC (test code = 5821-4) None seen 0-5 RBC (test code = 14035-2) None seen 0-2 Epithelial Cells (non renal) (test None seen 0-10 code = 5787-7) Epithelial Cells (renal) (test code = 85624-3) Casts (test code = 45002-7) None seen None seen Cast Type (test code = 89210-6) Crystals (test code = 5783-6) Crystal Type (test code = 5782-8) Mucus Threads (test code = 8247-9) Bacteria (test code = 5769-5) None seen None seen/Few Yeast (test code = 5822-2) Trichomonas (test code = 5813-1) Comment (test code = 03166-0) [facility] Description: Microscopic Diagymkllrx5606-69-30 04:44:00 Test Item Value Reference Range Interpretation Comments WBC (test code = 5821-4) None seen 0-5 RBC (test code = 22961-5) None seen 0-2 Epithelial Cells (non renal) (test None seen 0-10 code = 5787-7) Epithelial Cells (renal) (test code = 86835-5) Casts (test code = 30501-5) None seen None seen Cast Type (test code = 73923-3) Crystals (test code = 5783-6) Crystal Type (test code = 5782-8) Mucus Threads (test code = 8247-9) Bacteria (test code = 5769-5) None seen None seen/Few Yeast (test code = 5822-2) Trichomonas (test code = 5813-1) Comment (test code = 24719-5) [facility]opic Cfqifeccntg7217-27-48 04:44:00 Test Item Value Reference Range Interpretation Comments WBC (test code = 5821-4) None seen 0-5 RBC (test code = 06634-6) None seen 0-2 Epithelial Cells (non renal) (test None seen 0-10 code = 5787-7) Epithelial Cells (renal) (test code = 92159-1) Casts (test code = 01701-5) None seen None seen Cast Type (test code = 42990-8) Crystals (test code = 5783-6) Crystal Type (test code = 5782-8) Mucus Threads (test code = 8247-9) Bacteria (test code = 5769-5) None seen None seen/Few Yeast (test code = 5822-2) Trichomonas (test code = 5813-1) Comment (test code = 49960-8) [facility]: Microscopic Pfckgnovuxg6736-95-75 04:44:00 Test Item Value Reference Range Interpretation Comments WBC (test code = 5821-4) None seen 0-5 RBC (test code = 67805-6) None seen 0-2 Epithelial Cells (non renal) (test None seen 0-10 code = 5787-7) Epithelial Cells (renal) (test code = 92867-6) Casts (test code = 78503-4) None seen None seen Cast Type (test code = 69064-1) Crystals (test code = 5783-6) Crystal Type (test code = 5782-8) Mucus Threads (test code = 8247-9) Bacteria (test code = 5769-5) None seen None seen/Few Yeast (test code = 5822-2) Trichomonas (test code = 5813-1) Comment (test code = 20407-3) [facility] Description: Microscopic Uyoifzvvnmu0375-84-04 04:44:00 Test Item Value Reference Range Interpretation Comments WBC (test code = 5821-4) None seen 0-5 RBC (test code = 67550-1) None seen 0-2 Epithelial Cells (non renal) (test None seen 0-10 code = 5787-7) Epithelial Cells (renal) (test code = 25370-1) Casts (test code = 40286-0) None seen None seen Cast Type (test code = 19877-9) Crystals (test code = 5783-6) Crystal Type (test code = 5782-8) Mucus Threads (test code = 8247-9) Bacteria (test code = 5769-5) None seen None seen/Few Yeast (test code = 5822-2) Trichomonas (test code = 5813-1) Comment (test code = 15301-5) [facility] Description: Microscopic Igdyuzzxrsa2969-60-98 04:44:00 Test Item Value Reference Range Interpretation Comments WBC (test code = 5821-4) None seen 0-5 RBC (test code = 78279-6) None seen 0-2 Epithelial Cells (non renal) (test None seen 0-10 code = 5787-7) Epithelial Cells (renal) (test code = 74956-4) Casts (test code = 47265-8) None seen None seen Cast Type (test code = 96459-3) Crystals (test code = 5783-6) Crystal Type (test code = 5782-8) Mucus Threads (test code = 8247-9) Bacteria (test code = 5769-5) None seen None seen/Few Yeast (test code = 5822-2) Trichomonas (test code = 5813-1) Comment (test code = 91494-1) [facility] Description: Microscopic Fehlymubnmu7104-74-69 04:44:00 Test Item Value Reference Range Interpretation Comments WBC (test code = 5821-4) None seen 0-5 RBC (test code = 36502-5) None seen 0-2 Epithelial Cells (non renal) (test None seen 0-10 code = 5787-7) Epithelial Cells (renal) (test code = 98034-4) Casts (test code = 02201-4) None seen None seen Cast Type (test code = 28370-9) Crystals (test code = 5783-6) Crystal Type (test code = 5782-8) Mucus Threads (test code = 8247-9) Bacteria (test code = 5769-5) None seen None seen/Few Yeast (test code = 5822-2) Trichomonas (test code = 5813-1) Comment (test code = 44943-7) [facility] Description: Urinalysis, Zppmxoie7618-79-51 04:43:00 Test Item Value Reference Range Interpretation Comments Specific [place] (test 1.012 1.005-1.030 code = 2965-2) pH (test code = 5.5 5.0-7.5 5803-2) Urine-Color (test code Yellow Yellow = 5778-6) Appearance (test code Clear Clear = 5767-9) WBC Esterase (test Negative Negative code = 5799-2) Protein (test code = 4+ Negative/Trace A 84644-6) Glucose (test code = Trace Negative A 2349-9) Ketones (test code = Negative Negative 2514-8) Occult Blood (test Trace Negative A code = 5794-3) Bilirubin (test code = Negative Negative 5770-3) Urobilinogen,Semi-Qn 0.2 mg/dL 0.2-1.0 (test code = 13478-6) Nitrite, Urine (test Negative Negative code = 5802-4) Microscopic See below: Microscopic was Examination (test code indic ated and was = 12756-7) performed.

P erformed by:
[facility] [place] ()

[facility] Description: Urinalysis, Ubqbdhhm3754-15-95 04:43:00 Test Item Value Reference Range Interpretation Comments Specific [place] (test 1.012 1.005-1.030 code = 2965-2) pH (test code = 5.5 5.0-7.5 5803-2) Urine-Color (test code Yellow Yellow = 5778-6) Appearance (test code Clear Clear = 5767-9) WBC Esterase (test Negative Negative code = 5799-2) Protein (test code = 4+ Negative/Trace A 28883-6) Glucose (test code = Trace Negative A 2349-9) Ketones (test code = Negative Negative 2514-8) Occult Blood (test Trace Negative A code = 5794-3) Bilirubin (test code = Negative Negative 5770-3) Urobilinogen,Semi-Qn 0.2 mg/dL 0.2-1.0 (test code = 33353-0) Nitrite, Urine (test Negative Negative code = 5802-4) Microscopic See below: Microscopic was Examination (test code indic ated and was = 40173-7) performed.

P erformed by:
[facility] [place] ()

[facility] Description: Urinalysis, Hbzkvqio3562-36-52 04:43:00 Test Item Value Reference Range Interpretation Comments Specific [place] (test 1.012 1.005-1.030 code = 2965-2) pH (test code = 5.5 5.0-7.5 5803-2) Urine-Color (test code Yellow Yellow = 5778-6) Appearance (test code Clear Clear = 5767-9) WBC Esterase (test Negative Negative code = 5799-2) Protein (test code = 4+ Negative/Trace A 44001-5) Glucose (test code = Trace Negative A 2349-9) Ketones (test code = Negative Negative 2514-8) Occult Blood (test Trace Negative A code = 5794-3) Bilirubin (test code = Negative Negative 5770-3) Urobilinogen,Semi-Qn 0.2 mg/dL 0.2-1.0 (test code = 81216-1) Nitrite, Urine (test Negative Negative code = 5802-4) Microscopic See below: Microscopic was Examination (test code indic ated and was = 37785-9) performed.

P erformed by:
[facility] [place] ()

[facility] Description: Urinalysis, [id number] 04:43:00 Test Item Value Reference Range Interpretation Comments Specific [place] (test 1.012 1.005-1.030 code = 2965-2) pH (test code = 5.5 5.0-7.5 5803-2) Urine-Color (test code Yellow Yellow = 5778-6) Appearance (test code Clear Clear = 5767-9) WBC Esterase (test Negative Negative code = 5799-2) Protein (test code = 4+ Negative/Trace A 10356-5) Glucose (test code = Trace Negative A 2349-9) Ketones (test code = Negative Negative 2514-8) Occult Blood (test Trace Negative A code = 5794-3) Bilirubin (test code = Negative Negative 5770-3) Urobilinogen,Semi-Qn 0.2 mg/dL 0.2-1.0 (test code = 25803-8) Nitrite, Urine (test Negative Negative code = 5802-4) Microscopic See below: Microscopic was Examination (test code indic ated and was = 14503-9) performed.

P erformed by:
[facility] [place] ()

[facility] Description: Urinalysis, Sbbiutko2740-87-77 04:43:00 Test Item Value Reference Range Interpretation Comments Specific [place] (test 1.012 1.005-1.030 code = 2965-2) pH (test code = 5.5 5.0-7.5 5803-2) Urine-Color (test code Yellow Yellow = 5778-6) Appearance (test code Clear Clear = 5767-9) WBC Esterase (test Negative Negative code = 5799-2) Protein (test code = 4+ Negative/Trace A 15137-0) Glucose (test code = Trace Negative A 2349-9) Ketones (test code = Negative Negative 2514-8) Occult Blood (test Trace Negative A code = 5794-3) Bilirubin (test code = Negative Negative 5770-3) Urobilinogen,Semi-Qn 0.2 mg/dL 0.2-1.0 (test code = 69432-0) Nitrite, Urine (test Negative Negative code = 5802-4) Microscopic See below: Microscopic was Examination (test code indic ated and was = 22557-6) performed.

P erformed by:
[facility] [place] ()

[facility] Description: Urinalysis, Garlzaut2480-19-01 04:43:00 Test Item Value Reference Range Interpretation Comments Specific [place] (test 1.012 1.005-1.030 code = 2965-2) pH (test code = 5.5 5.0-7.5 5803-2) Urine-Color (test code Yellow Yellow = 5778-6) Appearance (test code Clear Clear = 5767-9) WBC Esterase (test Negative Negative code = 5799-2) Protein (test code = 4+ Negative/Trace A 16322-3) Glucose (test code = Trace Negative A 2349-9) Ketones (test code = Negative Negative 2514-8) Occult Blood (test Trace Negative A code = 5794-3) Bilirubin (test code = Negative Negative 5770-3) Urobilinogen,Semi-Qn 0.2 mg/dL 0.2-1.0 (test code = 90994-4) Nitrite, Urine (test Negative Negative code = 5802-4) Microscopic See below: Microscopic was Examination (test code indic ated and was = 99546-4) performed.

P erformed by:
[facility] ()

[facility]: [facility], Aspfewaq9580-08-77 04:43:00 Test Item Value Reference Range Interpretation Comments Specific [place] (test 1.012 1.005-1.030 code = 2965-2) pH (test code = 5.5 5.0-7.5 5803-2) Urine-Color (test code Yellow Yellow = 5778-6) Appearance (test code Clear Clear = 5767-9) WBC Esterase (test Negative Negative code = 5799-2) Protein (test code = 4+ Negative/Trace A 54583-9) Glucose (test code = Trace Negative A 2349-9) Ketones (test code = Negative Negative 2514-8) Occult Blood (test Trace Negative A code = 5794-3) Bilirubin (test code = Negative Negative 5770-3) Urobilinogen,Semi-Qn 0.2 mg/dL 0.2-1.0 (test code = 57352-4) Nitrite, Urine (test Negative Negative code = 5802-4) Microscopic See below: Microscopic was Examination (test code indic ated and was = 02033-0) performed.

P erformed by:
[facility] ()

[facility]: [facility], Ydrsixur5132-49-07 04:43:00 Test Item Value Reference Range Interpretation Comments Specific [place] (test 1.012 1.005-1.030 code = 2965-2) pH (test code = 5.5 5.0-7.5 5803-2) Urine-Color (test code Yellow Yellow = 5778-6) Appearance (test code Clear Clear = 5767-9) WBC Esterase (test Negative Negative code = 5799-2) Protein (test code = 4+ Negative/Trace A 05613-9) Glucose (test code = Trace Negative A 2349-9) Ketones (test code = Negative Negative 2514-8) Occult Blood (test Trace Negative A code = 5794-3) Bilirubin (test code = Negative Negative 5770-3) Urobilinogen,Semi-Qn 0.2 mg/dL 0.2-1.0 (test code = 12548-7) Nitrite, Urine (test Negative Negative code = 5802-4) Microscopic See below: Microscopic was Examination (test code indic ated and was = 71751-1) performed.

P erformed by:
[facility] [place] ()

[facility]: Urinal[facility], [id number] 04:43:00 Test Item Value Reference Range Interpretation Comments Specific [place] (test 1.012 1.005-1.030 code = 2965-2) pH (test code = 5.5 5.0-7.5 5803-2) Urine-Color (test code Yellow Yellow = 5778-6) Appearance (test code Clear Clear = 5767-9) WBC Esterase (test Negative Negative code = 5799-2) Protein (test code = 4+ Negative/Trace A 47780-3) Glucose (test code = Trace Negative A 2349-9) Ketones (test code = Negative Negative 2514-8) Occult Blood (test Trace Negative A code = 5794-3) Bilirubin (test code = Negative Negative 5770-3) Urobilinogen,Semi-Qn 0.2 mg/dL 0.2-1.0 (test code = 98056-2) Nitrite, Urine (test Negative Negative code = 5802-4) Microscopic See below: Microscopic was Examination (test code indic ated and was = 15726-0) performed.

P erformed by:
[facility] [place] ()

[facility] Description: Urinalysis, [id number] 04:43:00 Test Item Value Reference Range Interpretation Comments Specific [place] (test 1.012 1.005-1.030 code = 2965-2) pH (test code = 5.5 5.0-7.5 5803-2) Urine-Color (test code Yellow Yellow = 5778-6) Appearance (test code Clear Clear = 5767-9) WBC Esterase (test Negative Negative code = 5799-2) Protein (test code = 4+ Negative/Trace A 25560-2) Glucose (test code = Trace Negative A 2349-9) Ketones (test code = Negative Negative 2514-8) Occult Blood (test Trace Negative A code = 5794-3) Bilirubin (test code = Negative Negative 5770-3) Urobilinogen,Semi-Qn 0.2 mg/dL 0.2-1.0 (test code = 30532-3) Nitrite, Urine (test Negative Negative code = 5802-4) Microscopic See below: Microscopic was Examination (test code indic ronaldo and was = 06473-4) performed.

P erformed by:
[facility] [place] ()

[facility] Description: Urinalysis, Ojjlswqn0095-15-53 04:43:00 Test Item Value Reference Range Interpretation Comments Specific [place] (test 1.012 1.005-1.030 code = 2965-2) pH (test code = 5.5 5.0-7.5 5803-2) Urine-Color (test code Yellow Yellow = 5778-6) Appearance (test code Clear Clear = 5767-9) WBC Esterase (test Negative Negative code = 5799-2) Protein (test code = 4+ Negative/Trace A 43501-5) Glucose (test code = Trace Negative A 2349-9) Ketones (test code = Negative Negative 2514-8) Occult Blood (test Trace Negative A code = 5794-3) Bilirubin (test code = Negative Negative 5770-3) Urobilinogen,Semi-Qn 0.2 mg/dL 0.2-1.0 (test code = 83732-8) Nitrite, Urine (test Negative Negative code = 5802-4) Microscopic See below: Microscopic was Examination (test code indic ated and was = 37478-4) performed.

P erformed by:
[facility] [place] ()

[facility] Description: Urinalysis, Vtnoekhg4850-91-01 04:43:00 Test Item Value Reference Range Interpretation Comments Specific [place] (test 1.012 1.005-1.030 code = 2965-2) pH (test code = 5.5 5.0-7.5 5803-2) Urine-Color (test code Yellow Yellow = 5778-6) Appearance (test code Clear Clear = 5767-9) WBC Esterase (test Negative Negative code = 5799-2) Protein (test code = 4+ Negative/Trace A 86182-5) Glucose (test code = Trace Negative A 2349-9) Ketones (test code = Negative Negative 2514-8) Occult Blood (test Trace Negative A code = 5794-3) Bilirubin (test code = Negative Negative 5770-3) Urobilinogen,Semi-Qn 0.2 mg/dL 0.2-1.0 (test code = 89802-2) Nitrite, Urine (test Negative Negative code = 5802-4) Microscopic See below: Microscopic was Examination (test code indic ated and was = 91737-5) performed.

P erformed by:
[facility] [place] ()

[facility] Description: Urinalysis, [id number] 04:43:00 Test Item Value Reference Range Interpretation Comments Specific [place] (test 1.012 1.005-1.030 code = 2965-2) pH (test code = 5.5 5.0-7.5 5803-2) Urine-Color (test code Yellow Yellow = 5778-6) Appearance (test code Clear Clear = 5767-9) WBC Esterase (test Negative Negative code = 5799-2) Protein (test code = 4+ Negative/Trace A 59124-2) Glucose (test code = Trace Negative A 2349-9) Ketones (test code = Negative Negative 2514-8) Occult Blood (test Trace Negative A code = 5794-3) Bilirubin (test code = Negative Negative 5770-3) Urobilinogen,Semi-Qn 0.2 mg/dL 0.2-1.0 (test code = 61871-5) Nitrite, Urine (test Negative Negative code = 5802-4) Microscopic See below: Microscopic was Examination (test code indic ated and was = 18217-8) performed.

P erformed by:
[facility] [place] ()

[facility] Description: Urinalysis, [id number] 04:43:00 Test Item Value Reference Range Interpretation Comments Specific [place] (test 1.012 1.005-1.030 code = 2965-2) pH (test code = 5.5 5.0-7.5 5803-2) Urine-Color (test code Yellow Yellow = 5778-6) Appearance (test code Clear Clear = 5767-9) WBC Esterase (test Negative Negative code = 5799-2) Protein (test code = 4+ Negative/Trace A 99787-9) Glucose (test code = Trace Negative A 2349-9) Ketones (test code = Negative Negative 2514-8) Occult Blood (test Trace Negative A code = 5794-3) Bilirubin (test code = Negative Negative 5770-3) Urobilinogen,Semi-Qn 0.2 mg/dL 0.2-1.0 (test code = 10115-1) Nitrite, Urine (test Negative Negative code = 5802-4) Microscopic See below: Microscopic was Examination (test code indic ated and was = 78332-2) performed.

P erformed by:
[facility] [place] ()

[facility] Description: Urinalysis, [id number] 04:43:00 Test Item Value Reference Range Interpretation Comments Specific [place] (test 1.012 1.005-1.030 code = 2965-2) pH (test code = 5.5 5.0-7.5 5803-2) Urine-Color (test code Yellow Yellow = 5778-6) Appearance (test code Clear Clear = 5767-9) WBC Esterase (test Negative Negative code = 5799-2) Protein (test code = 4+ Negative/Trace A 72539-7) Glucose (test code = Trace Negative A 2349-9) Ketones (test code = Negative Negative 2514-8) Occult Blood (test Trace Negative A code = 5794-3) Bilirubin (test code = Negative Negative 5770-3) Urobilinogen,Semi-Qn 0.2 mg/dL 0.2-1.0 (test code = 79749-8) Nitrite, Urine (test Negative Negative code = 5802-4) Microscopic See below: Microscopic was Examination (test code indic ated and was = 78801-4) performed.

P erformed by:
[facility] [place] ()

[facility], [id number] 04:43:00 Test Item Value Reference Range Interpretation Comments Specific [place] (test 1.012 1.005-1.030 code = 2965-2) pH (test code = 5.5 5.0-7.5 5803-2) Urine-Color (test code Yellow Yellow = 5778-6) Appearance (test code Clear Clear = 5767-9) WBC Esterase (test Negative Negative code = 5799-2) Protein (test code = 4+ Negative/Trace A 51787-7) Glucose (test code = Trace Negative A 2349-9) Ketones (test code = Negative Negative 2514-8) Occult Blood (test Trace Negative A code = 5794-3) Bilirubin (test code = Negative Negative 5770-3) Urobilinogen,Semi-Qn 0.2 mg/dL 0.2-1.0 (test code = 33325-1) Nitrite, Urine (test Negative Negative code = 5802-4) Microscopic See below: Microscopic was Examination (test code indic ated and was = 81325-4) performed.

P erformed by:
[facility] ()

[facility]: [facility], [id number] 04:43:00 Test Item Value Reference Range Interpretation Comments Specific [place] (test 1.012 1.005-1.030 code = 2965-2) pH (test code = 5.5 5.0-7.5 5803-2) Urine-Color (test code Yellow Yellow = 5778-6) Appearance (test code Clear Clear = 5767-9) WBC Esterase (test Negative Negative code = 5799-2) Protein (test code = 4+ Negative/Trace A 15185-9) Glucose (test code = Trace Negative A 2349-9) Ketones (test code = Negative Negative 2514-8) Occult Blood (test Trace Negative A code = 5794-3) Bilirubin (test code = Negative Negative 5770-3) Urobilinogen,Semi-Qn 0.2 mg/dL 0.2-1.0 (test code = 16517-9) Nitrite, Urine (test Negative Negative code = 5802-4) Microscopic See below: Microscopic was Examination (test code indic ated and was = 10064-5) performed.

P erformed by:
[facility] [place] ()

[facility] Description: Urinalysis, [id number] 04:43:00 Test Item Value Reference Range Interpretation Comments Specific [place] (test 1.012 1.005-1.030 code = 2965-2) pH (test code = 5.5 5.0-7.5 5803-2) Urine-Color (test code Yellow Yellow = 5778-6) Appearance (test code Clear Clear = 5767-9) WBC Esterase (test Negative Negative code = 5799-2) Protein (test code = 4+ Negative/Trace A 88533-7) Glucose (test code = Trace Negative A 2349-9) Ketones (test code = Negative Negative 2514-8) Occult Blood (test Trace Negative A code = 5794-3) Bilirubin (test code = Negative Negative 5770-3) Urobilinogen,Semi-Qn 0.2 mg/dL 0.2-1.0 (test code = 01521-8) Nitrite, Urine (test Negative Negative code = 5802-4) Microscopic See below: Microscopic was Examination (test code indic ated and was = 65445-9) performed.

P erformed by:
[facility] [place] ()

[facility] Description: Urinalysis, [id number] 04:43:00 Test Item Value Reference Range Interpretation Comments Specific [place] (test 1.012 1.005-1.030 code = 2965-2) pH (test code = 5.5 5.0-7.5 5803-2) Urine-Color (test code Yellow Yellow = 5778-6) Appearance (test code Clear Clear = 5767-9) WBC Esterase (test Negative Negative code = 5799-2) Protein (test code = 4+ Negative/Trace A 34721-8) Glucose (test code = Trace Negative A 2349-9) Ketones (test code = Negative Negative 2514-8) Occult Blood (test Trace Negative A code = 5794-3) Bilirubin (test code = Negative Negative 5770-3) Urobilinogen,Semi-Qn 0.2 mg/dL 0.2-1.0 (test code = 59457-7) Nitrite, Urine (test Negative Negative code = 5802-4) Microscopic See below: Microscopic was Examination (test code indic ated and was = 00420-8) performed.

P erformed by:
[facility] [place] ()

[facility] Description: Urinalysis, [id number] 04:43:00 Test Item Value Reference Range Interpretation Comments Specific [place] (test 1.012 1.005-1.030 code = 2965-2) pH (test code = 5.5 5.0-7.5 5803-2) Urine-Color (test code Yellow Yellow = 5778-6) Appearance (test code Clear Clear = 5767-9) WBC Esterase (test Negative Negative code = 5799-2) Protein (test code = 4+ Negative/Trace A 73142-5) Glucose (test code = Trace Negative A 2349-9) Ketones (test code = Negative Negative 2514-8) Occult Blood (test Trace Negative A code = 5794-3) Bilirubin (test code = Negative Negative 5770-3) Urobilinogen,Semi-Qn 0.2 mg/dL 0.2-1.0 (test code = 41915-4) Nitrite, Urine (test Negative Negative code = 5802-4) Microscopic See below: Microscopic was Examination (test code tor hed sukhi was = 54617-5) performed.

P erformed by:
[facility] [place] ([place])

[facility] Description: Urinalysis, [id number] 04:43:00 Microscopic Examination[facility] Description: Urinalysis, Complete 2020-10-30 04:43:00Microscopic Examination[facility] Description: Urinalysis, [id number] 04:43:00Microscopic Examination[facility] Description: Urinalysis, [id number] 04:43:00Microscopic Examination [facility] Description: Urinalysis, [id number] 04:43:00 Microscopic ExaminationAccess [facility] Description: Urinalysis, Complete 2020-10-30 04:43:00Microscopic ExaminationAccess [facility] Description: Urinalysis, [id number] 04:43:00Microscopic ExaminationAccess [facility] Description: Urinalysis, Padndlbr0254-98-34 04:43:00Microscopic Examination [facility] Description: Urinalysis, [id number] 04:43:00 Microscopic ExaminationAccess [facility] Description: Urinalysis, Complete 2020-10-30 04:43:00Microscopic ExaminationAccess [facility] Description: Urinalysis, [id number] 04:43:00Microscopic ExaminationAccess [facility] Description: Urinalysis, [id number] 04:43:00Microscopic Examination [facility] Description: Urinalysis, [id number] 04:43:00 Microscopic ExaminationAccess [facility] Description: Urinalysis, Complete 2020-10-30 04:43:00Microscopic ExaminationAccess [facility] Description: Urinalysis, [id number] 04:43:00Microscopic ExaminationAccess [facility] Description: Urinalysis, [id number] 04:43:00Microscopic Examination [facility] Description: Urinalysis, [id number] 04:43:00 Microscopic ExaminationAccess [facility] Description: Urinalysis, Complete 2020-10-30 04:43:00Microscopic ExaminationAccess [facility] Description: Urinalysis, [id number] 04:43:00Microscopic ExaminationAccess [facility] Description: Urinalysis, Tojzlxpe4381-24-83 04:43:00Microscopic Examination [facility] Description: 25-hydroxyvitamin D3 [Mass/volume] in Serum or [id number] 04:26:00 Test Item Value Reference Range Interpretation Comments Vitamin D, 12.0 ng/mL 30.0-100.0 L Vitamin D defic iency has 25-Hydroxy (test been define d by the code = 07482-2) [place] [facility] [place] [facility] Endocrine So ciety practice guidel ine as alevel of serum 25-OH vitamin D less than 20 ng/mL (1,2).The Endocrine Society went on to further define vitamin Dinsufficiency as a level between 21 and 29 ng/mL (2).1. IOM (Ins titute of Medicine). 2010 . Dietary reference int akes for calcium and D. [place]: The [employer] .2. Dileep MF, Ela NC, Chichi-Augie blake EMERSON, et al. Evaluatio n, treatment, and prevention of vitamin D deficiency: an Endocrine Society clinica l practice guideline. [place] EM. 2010; 96(7):1911-30.< br/>
P erformed by:
[facility] [place] ()

[facility] Description: 25-hydroxyvitamin D3 [Mass/volume] in Serum or [id number] 04:26:00 Test Item Value Reference Range Interpretation Comments Vitamin D, 12.0 ng/mL 30.0-100.0 L Vitamin D defic iency has 25-Hydroxy (test been define d by the code = 09805-0) [place] [facility] [place] [facility] guidel ine as alevel of serum 25-OH vitamin D less than 20 ng/mL (1,2).The Endocrine Society went on to further define vitamin Dinsufficiency as a level between 21 and 29 ng/mL (2).1. IOM (Ins titute of Medicine). 2010 . Dietary reference int akes for calcium and D. [facility]: The [employer] .2. Ela Oliveros, Stephane EMERSON, et al. Evaluatio n, treatment, and prevention of vitamin D deficiency: an Endocrine Society clinica l practice guideline. EM. 2010; 96(7):191-.< br/>
P erformed by:
[facility] [place] ([place])

[facility] Description: 25-hydroxyvitamin D3 [Mass/volume] in Serum or [id number] 04:26:00 Test Item Value Reference Range Interpretation Comments Vitamin D, 12.0 ng/mL 30.0-100.0 L Vitamin D defic iency has 25-Hydroxy (test been define d by the code = 29381-9) [place] [facility] Endocrine So [facility] practice guidel ine as alevel of serum 25-OH vitamin D less than 20 ng/mL (1,2).The Endocrine Society went on to further define vitamin Dinsufficiency as a level between 21 and 29 ng/mL (2).1. IOM ([facility]). 2010 . Dietary reference int akes for calcium and D. [facility]: The [employer] .2. Ela Oliveros, Stephane EMERSON, et al. Evaluatio n, treatment, and prevention of vitamin D deficiency: an Endocrine Society clinica l practice guideline. EM. 2010; 96(7):1911-30.< br/>
P erformed by:
[facility] [place] ([place])

[facility] Description: 25-hydroxyvitamin D3 [Mass/volume] in Serum or [id number] 04:26:00 Test Item Value Reference Range Interpretation Comments Vitamin D, 12.0 ng/mL 30.0-100.0 L Vitamin D defic iency has 25-Hydroxy (test been define d by the code = 60290-5) [place] [employer] [place] [facility]ocrine So ciety practice guidel ine as alevel of serum 25-OH vitamin D less than 20 ng/mL (1,2).The Endocrine Society went on to further define vitamin Dinsufficiency as a level between 21 and 29 ng/mL (2).1. IOM (Ins titute of Medicine). 2010 . Dietary reference int akes for calcium and D. [facility]: The [employer] .2. Ela Oliveros, Stephane EMERSON, et al. Evaluatio n, treatment, and prevention of vitamin D deficiency: an Endocrine Society clinica l practice guideline. [place] EM. 2010; 96(7):1911-30.< br/>
P erformed by:
[facility] ([place])

[facility] Description: 25-hydroxyvitamin D3 [Mass/volume] in Serum or [id number] 04:26:00 Test Item Value Reference Range Interpretation Comments Vitamin D, 12.0 ng/mL 30.0-100.0 L Vitamin D defic iency has 25-Hydroxy (test been define d by the code = 06501-3) [place] [facility] [place] [facility] Endocrine So [facility] practice guidel ine as alevel of serum 25-OH vitamin D less than 20 ng/mL (1,2).The Endocrine Society went on to further define vitamin Dinsufficiency as a level between 21 and 29 ng/mL (2).1. IOM (Ins titute of Medicine). 2010 . Dietary reference int akes for calcium and D. [facility]: The [employer] .2. Ela Oliveros, Stephane EMERSON, et al. Evaluatio n, treatment, and prevention of vitamin D deficiency: an Endocrine Society clinica l practice guideline. [place] EM. 2010; 96(7):1911-30.< br/>
P erformed by:
[facility] ([place])

[facility] Description: 25-hydroxyvitamin D3 [Mass/volume] in Serum or [id number] 04:26:00 Test Item Value Reference Range Interpretation Comments Vitamin D, 12.0 ng/mL 30.0-100.0 L Vitamin D defic iency has 25-Hydroxy (test been define d by the code = 59568-5) [place] [facility] [place] [facility] Endocrine So [facility] practice guidel ine as alevel of serum 25-OH vitamin D less than 20 ng/mL (1,2).The Endocrine Society went on to further define vitamin Dinsufficiency as a level between 21 and 29 ng/mL (2).1. IOM (Ins titute of Medicine). 2010 . Dietary reference int akes for calcium and D. [facility]: The [employer] .2. Ela Oliveros, Stephane EMERSON, et al. Evaluatio n, treatment, and prevention of vitamin D deficiency: an Endocrine Society clinica l practice guideline. [place] EM. 2010; 96(7):191-.< br/>
P erformed by:
[facility] ([place])

[facility] Description: 25-hydroxyvitamin D3 [Mass/volume] in Serum or [id number] 04:26:00 Test Item Value Reference Range Interpretation Comments Vitamin D, 12.0 ng/mL 30.0-100.0 L Vitamin D defic iency has 25-Hydroxy (test been define d by the code = 52465-4) [place] [facility] [place] [facility] Endocrine So [facility] practice guidel ine as alevel of serum 25-OH vitamin D less than 20 ng/mL (1,2).The Endocrine Society went on to further define vitamin Dinsufficiency as a level between 21 and 29 ng/mL (2).1. IOM ([facility]). 2010 . Dietary reference int akes for calcium and D. [facility]: The [employer] .2. Ela Oliveros, Stephane EMERSON, et al. Evaluatio n, treatment, and prevention of vitamin D deficiency: an Endocrine Society clinica l practice guideline. [place] EM. 2010; 96(7):191-.< br/>
P erformed by:
[facility] ([place])

[facility] Description: 25-hydroxyvitamin D3 [Mass/volume] in Serum or [id number] 04:26:00 Test Item Value Reference Range Interpretation Comments Vitamin D, 12.0 ng/mL 30.0-100.0 L Vitamin D defic iency has 25-Hydroxy (test been define d by the code = 01859-2) [place] [employer] [place] [facility] So ciety practice guidel ine as alevel of serum 25-OH vitamin D less than 20 ng/mL (1,2).The Endocrine Society went on to further define vitamin Dinsufficiency as a level between 21 and 29 ng/mL (2).1. IOM (Ins titute of Medicine). 2010 . Dietary reference int akes for calcium and D. [facility]: The [employer] .2. Ela Oliveros, Stephane EMERSON, et al. Evaluatio n, treatment, and prevention of vitamin D deficiency: an Endocrine Society clinica l practice guideline. EM. 2010; 96(7):1911-30.< br/>
P erformed by:
[facility] ([place])

[facility] Description: 25-hydroxyvitamin D3 [Mass/volume] in Serum or [id number] 04:26:00 Test Item Value Reference Range Interpretation Comments Vitamin D, 12.0 ng/mL 30.0-100.0 L Vitamin D defic iency has 25-Hydroxy (test been define d by the code = 13179-2) [place] [facility] [place] [facility] practice guidel ine as alevel of serum 25-OH vitamin D less than 20 ng/mL (1,2).The Endocrine Society went on to further define vitamin Dinsufficiency as a level between 21 and 29 ng/mL (2).1. IOM (Ins titute of Medicine). 2010 . Dietary reference int akes for calcium and D. [facility]: The [employer] .2. Ela Oliveros, Stephane EMERSON, et al. Evaluatio n, treatment, and prevention of vitamin D deficiency: an Endocrine Society clinica l practice guideline. EM. 2010; 96(7):191-30.< br/>
P erformed by:
[facility] ([place])

[facility] Description: 25-hydroxyvitamin D3 [Mass/volume] in Serum or [id number] 04:26:00 Test Item Value Reference Range Interpretation Comments Vitamin D, 12.0 ng/mL 30.0-100.0 L Vitamin D defic iency has 25-Hydroxy (test been define d by the code = 62894-7) [place] [facility] [place] [facility] So ciety practice guidel ine as alevel of serum 25-OH vitamin D less than 20 ng/mL (1,2).The Endocrine Society went on to further define vitamin Dinsufficiency as a level between 21 and 29 ng/mL (2).1. IOM (Ins titute of Medicine). 2010 . Dietary reference int akes for calcium and D. [place]: The [employer] .2. Ela Oliveros, Stephane EMERSON, et al. Evaluatio n, treatment, and prevention of vitamin D deficiency: an Endocrine Society clinica l practice guideline. EM. 2010; 96(7):1911-30.< br/>
P erformed by:
[facility] [place] ([place])

[facility] Description: 25-hydroxyvitamin D3 [Mass/volume] in Serum or [id number] 04:26:00 Test Item Value Reference Range Interpretation Comments Vitamin D, 12.0 ng/mL 30.0-100.0 L Vitamin D defic iency has 25-Hydroxy (test been define d by the code = 92980-8) [place] [facility] [place] [facility] Endocrine So [facility] practice guidel ine as alevel of serum 25-OH vitamin D less than 20 ng/mL (1,2).The Endocrine Society went on to further define vitamin Dinsufficiency as a level between 21 and 29 ng/mL (2).1. IOM (Ins titute of Medicine). 2010 . Dietary reference int akes for calcium and D. [place]: The [employer] .2. Ela Oliveros, Stephane EMERSON, et al. Evaluatio n, treatment, and prevention of vitamin D deficiency: an Endocrine Society clinica l practice guideline. EM. 2010; 96(7):191-30.< br/>
P erformed by:
[facility] ([place])

[facility] Description: 25-hydroxyvitamin D3 [Mass/volume] in Serum or [id number] 04:26:00 Test Item Value Reference Range Interpretation Comments Vitamin D, 12.0 ng/mL 30.0-100.0 L Vitamin D defic iency has 25-Hydroxy (test been define d by the code = 58062-9) [place] [facility] [place] [facility] Endocrine So [facility] practice guidel ine as alevel of serum 25-OH vitamin D less than 20 ng/mL (1,2).The Endocrine Society went on to further define vitamin Dinsufficiency as a level between 21 and 29 ng/mL (2).1. IOM (Ins titute of Medicine). 2010 . Dietary reference int akes for calcium and D. [place]: The [employer] .2. Ela Oliveros, Stephane EMERSON, et al. Evaluatio n, treatment, and prevention of vitamin D deficiency: an Endocrine Society clinica l practice guideline. EM. 2010; 96(7):1911-30.< br/>
P erformed by:
[facility] ([place])

[facility] Description: 25-hydroxyvitamin D3 [Mass/volume] in Serum or [id number] 04:26:00 Test Item Value Reference Range Interpretation Comments Vitamin D, 12.0 ng/mL 30.0-100.0 L Vitamin D defic iency has 25-Hydroxy (test been define d by the code = 78908-3) [place] [facility] [place] [facility] Endocrine So [facility] practice guidel ine as alevel of serum 25-OH vitamin D less than 20 ng/mL (1,2).The Endocrine Society went on to further define vitamin Dinsufficiency as a level between 21 and 29 ng/mL (2).1. IOM (Ins titute of Medicine). 2010 . Dietary reference int akes for calcium and D. [place]: The [employer] .2. Ela Oliveros, Stephane EMERSON, et al. Evaluatio n, treatment, and prevention of vitamin D deficiency: an Endocrine Society clinica l practice guideline. [place] EM. 2010; 96(7):1911-30.< br/>
P erformed by:
[facility] [place] ([place])

[facility] Description: 25-hydroxyvitamin D3 [Mass/volume] in Serum or [id number] 04:26:00 Test Item Value Reference Range Interpretation Comments Vitamin D, 12.0 ng/mL 30.0-100.0 L Vitamin D defic iency has 25-Hydroxy (test been define d by the code = 67065-9) [place] [facility] [place] [facility] Endocrine So [facility] practice guidel ine as alevel of serum 25-OH vitamin D less than 20 ng/mL (1,2).The Endocrine Society went on to further define vitamin Dinsufficiency as a level between 21 and 29 ng/mL (2).1. IOM (Ins titute of Medicine). 2010 . Dietary reference int akes for calcium and D. [place]: The [employer] .2. Dileep AREVALO, Ela SANTA, Stephane EMERSON, et al. Evaluatio n, treatment, and prevention of vitamin D deficiency: an Endocrine Society clinica l practice guideline. [place] EM. 2010; 96(7):1911-30.< br/>
P erformed by:
[facility] [place] ()

[facility] Description: 25-hydroxyvitamin D3 [Mass/volume] in Serum or [id number] 04:26:00 Test Item Value Reference Range Interpretation Comments Vitamin D, 12.0 ng/mL 30.0-100.0 L Vitamin D defic iency has 25-Hydroxy (test been define d by the code = 29938-1) [place] [facility] [place] [facility] Endocrine So [facility] practice guidel ine as alevel of serum 25-OH vitamin D less than 20 ng/mL (1,2).The Endocrine Society went on to further define vitamin Dinsufficiency as a level between 21 and 29 ng/mL (2).1. IOM (Ins titute of Medicine). 2010 . Dietary reference int akes for calcium and D. [facility]: The [employer] .2. Ela Oliveros, Stephane EMERSON, et al. Evaluatio n, treatment, and prevention of vitamin D deficiency: an Endocrine Society clinica l practice guideline. EM. 2010; 96(7):1911-30.< br/>
P erformed by:
[facility] [place] ([place])

[facility] Description: 25-hydroxyvitamin D3 [Mass/volume] in Serum or [id number] 04:26:00 Test Item Value Reference Range Interpretation Comments Vitamin D, 12.0 ng/mL 30.0-100.0 L Vitamin D defic iency has 25-Hydroxy (test been define d by the code = 28697-1) [place] [facility] [place] [facility] Endocrine So [facility] practice guidel ine as alevel of serum 25-OH vitamin D less than 20 ng/mL (1,2).The Endocrine Society went on to further define vitamin Dinsufficiency as a level between 21 and 29 ng/mL (2).1. IOM (Ins [facility]). 2010 . Dietary reference int akes for calcium and D. [facility]: The [employer] .2. Ela Oliveros, Stephane EMERSON, et al. Evaluatio n, treatment, and prevention of vitamin D deficiency: an Endocrine Society clinica l practice guideline. EM. 2010; 96(7):1911-30.< br/>
P erformed by:
[facility] [place] ()

[facility] Description: 25-hydroxyvitamin D3 [Mass/volume] in Serum or [id number] 04:26:00 Test Item Value Reference Range Interpretation Comments Vitamin D, 12.0 ng/mL 30.0-100.0 L Vitamin D defic iency has 25-Hydroxy (test been define d by the code = 97234-1) [place] [employer] [place] [facility]ocrine So ciety practice guidel ine as alevel of serum 25-OH vitamin D less than 20 ng/mL (1,2).The Endocrine Society went on to further define vitamin Dinsufficiency as a level between 21 and 29 ng/mL (2).1. IOM (Ins titute of Medicine). 2010 . Dietary reference int akes for calcium and D. [facility]: The [employer] .2. Ela Oliveros, Stephane EMERSON, et al. Evaluatio n, treatment, and prevention of vitamin D deficiency: an Endocrine Society clinica l practice guideline. [place] EM. 2010; 96(7):1911-30.< br/>
P erformed by:
[facility] ([place])

[facility] Description: 25-hydroxyvitamin D3 [Mass/volume] in Serum or [id number] 04:26:00 Test Item Value Reference Range Interpretation Comments Vitamin D, 12.0 ng/mL 30.0-100.0 L Vitamin D defic iency has 25-Hydroxy (test been define d by the code = 30561-1) [place] [employer] [place] [facility] Endocrine So [facility] practice guidel ine as alevel of serum 25-OH vitamin D less than 20 ng/mL (1,2).The Endocrine Society went on to further define vitamin Dinsufficiency as a level between 21 and 29 ng/mL (2).1. IOM (Ins titute of Medicine). 2010 . Dietary reference int akes for calcium and D. [facility]: The [employer] .2. Ela Oliveros, Stephane EMERSON, et al. Evaluatio n, treatment, and prevention of vitamin D deficiency: an Endocrine Society clinica l practice guideline. [place]. 2010; 96(7):1911-30.< br/>
P erformed by:
[facility] Kaur (HD)

[facility] Description: 25-hydroxyvitamin D3 [Mass/volume] in Serum or [id number] 04:26:00 Test Item Value Reference Range Interpretation Comments Vitamin D, 12.0 ng/mL 30.0-100.0 L Vitamin D defic iency has 25-Hydroxy (test been define d by the code = 57505-9) [place] [facility] and an Endocrine So ciety practice guidel ine as alevel of serum 25-OH vitamin D less than 20 ng/mL (1,2).The Endocrine Society went on to further define vitamin Dinsufficiency as a level between 21 and 29 ng/mL (2).1. IOM (Ins titute of Medicine). 2010 . Dietary reference int akes for calcium and D. [facility]: The [employer] .2. Ela Oliveros, Stephane EMERSON, et al. Evaluatio n, treatment, and prevention of vitamin D deficiency: an Endocrine Society clinica l practice guideline. [place] EM. 2010; 96(7):191-30.< br/>
P erformed by:
[facility] Alter-[facility] (HD)

[facility] Description: 25-hydroxyvitamin D3 [Mass/volume] in Serum or [id number] 04:26:00 Test Item Value Reference Range Interpretation Comments Vitamin D, 12.0 ng/mL 30.0-100.0 L Vitamin D defic iency has 25-Hydroxy (test been define d by the code = 78502-3) [place] [facility] and an Endocrine So [facility] practice guidel ine as alevel of serum 25-OH vitamin D less than 20 ng/mL (1,2).The Endocrine Society went on to further define vitamin Dinsufficiency as a level between 21 and 29 ng/mL (2).1. IOM (Ins [facility] healthute of Medicine). 2010 . Dietary reference int akes for calcium and D. [facility]: The [employer] .2. Ela Oliveros, Stephane EMERSON, et al. Evaluatio n, treatment, and prevention of vitamin D deficiency: an Endocrine Society clinica l practice guideline. [place] EM. 2010; 96(7):191-30.< br/>
P erformed by:
[facility] Kaur (HD)

[facility] Description: CBC With Differential/Egbdsswm0418-72-25 04:00:00 Test Item Value Reference Range Interpretation [...] (test 1 % Not Estab. code = 28670-9) Immature Grans (Abs) (test code 0.0 x10E3/uL 0.0-0.1 = 79231-0) NRBC (test code = 19129-5) Hematology Comments: (test code = 09970-2) [facility] Description: CBC With Differential/Wmumongw0720-77-80 04:00:00 Test Item Value Reference Range Interpretation [...] (test 1 % Not Estab. code = 69611-9) Immature Grans (Abs) (test code 0.0 x10E3/uL 0.0-0.1 = 05850-6) NRBC (test code = 77234-2) Hematology Comments: (test code = 96339-6) [facility]: CBC With Differential/Uhffvowu3399-23-23 04:00:00 Test Item Value Reference Range Interpretation [...] (test 1 % Not Estab. code = 08713-3) Immature Grans (Abs) (test code 0.0 x10E3/uL 0.0-0.1 = 09379-5) NRBC (test code = 84337-6) Hematology Comments: (test code = 83550-5) [facility] Description: CBC With Differential/Reslmcly3834-42-88 04:00:00 Test Item Value Reference Range Interpretation [...] (test 1 % Not Estab. code = 84630-0) Immature Grans (Abs) (test code 0.0 x10E3/uL 0.0-0.1 = 80295-4) NRBC (test code = 04514-3) Hematology Comments: (test code = 70442-1) [facility]: CBC With Differential/Nhriccyf0643-36-34 04:00:00 Test Item Value Reference Range Interpretation [...] (test 1 % Not Estab. code = 22883-7) Immature Grans (Abs) (test code 0.0 x10E3/uL 0.0-0.1 = 83717-3) NRBC (test code = 23242-2) Hematology Comments: (test code = 17776-8) [facility] Description: CBC With Differential/Xrwcyfuk5274-38-07 04:00:00 Test Item Value Reference Range Interpretation [...] (test 1 % Not Estab. code = 75250-7) Immature Grans (Abs) (test code 0.0 x10E3/uL 0.0-0.1 = 94376-1) NRBC (test code = 04534-9) Hematology Comments: (test code = 80891-8) [facility]: CBC With Differential/Micmofjz9996-69-31 04:00:00 Test Item Value Reference Range Interpretation [...] (test 1 % Not Estab. code = 76246-8) Immature Grans (Abs) (test code 0.0 x10E3/uL 0.0-0.1 = 72483-7) NRBC (test code = 02960-6) Hematology Comments: (test code = 57418-2) [facility] Description: CBC With Differential/Cyejhycw4549-01-27 04:00:00 Test Item Value Reference Range Interpretation [...] (test 1 % Not Estab. code = 26302-7) Immature Grans (Abs) (test code 0.0 x10E3/uL 0.0-0.1 = 63882-2) NRBC (test code = 75874-9) Hematology Comments: (test code = 41428-9) [facility] Description: CBC With Differential/Eloecsce0682-17-84 04:00:00 Test Item Value Reference Range Interpretation [...] (test 1 % Not Estab. code = 33769-3) Immature Grans (Abs) (test code 0.0 x10E3/uL 0.0-0.1 = 41477-1) NRBC (test code = 73633-0) Hematology Comments: (test code = 19563-5) [facility] Description: CBC With Differential/Qsncxufn0250-76-97 04:00:00 Test Item Value Reference Range Interpretation [...] (test 1 % Not Estab. code = 12933-7) Immature Grans (Abs) (test code 0.0 x10E3/uL 0.0-0.1 = 43279-0) NRBC (test code = 92037-8) Hematology Comments: (test code = 29709-2) [facility]: CBC With Differential/Sysedfqa4556-15-92 04:00:00 Test Item Value Reference Range Interpretation [...] (test 1 % Not Estab. code = 15692-4) Immature Grans (Abs) (test code 0.0 x10E3/uL 0.0-0.1 = 87138-5) NRBC (test code = 53077-7) Hematology Comments: (test code = 24417-6) [facility]: CBC With Differential/Vfgroisg9924-78-98 04:00:00 Test Item Value Reference Range Interpretation [...] (test 1 % Not Estab. code = 51820-9) Immature Grans (Abs) (test code 0.0 x10E3/uL 0.0-0.1 = 45986-4) NRBC (test code = 22012-2) Hematology Comments: (test code = 48910-6) [facility] Description: CBC With Differential/Mnwjdqrw4004-64-52 04:00:00 Test Item Value Reference Range Interpretation [...] (test 1 % Not Estab. code = 08598-6) Immature Grans (Abs) (test code 0.0 x10E3/uL 0.0-0.1 = 36710-0) NRBC (test code = 63432-1) Hematology Comments: (test code = 55928-2) [facility] Description: CBC With Differential/Yjpfjspl7695-91-71 04:00:00 Test Item Value Reference Range Interpretation [...] (test 1 % Not Estab. code = 51132-7) Immature Grans (Abs) (test code 0.0 x10E3/uL 0.0-0.1 = 56976-2) NRBC (test code = 26854-4) Hematology Comments: (test code = 26133-5) [facility] Description: CBC With Differential/Hjuhkifi7773-89-64 04:00:00 Test Item Value Reference Range Interpretation [...] (test 1 % Not Estab. code = 16707-8) Immature Grans (Abs) (test code 0.0 x10E3/uL 0.0-0.1 = 62900-2) NRBC (test code = 00252-0) Hematology Comments: (test code = 33428-4) [facility]: CBC With Differential/Iejpxvnx0522-05-91 04:00:00 Test Item Value Reference Range Interpretation [...] (test 1 % Not Estab. code = 28995-0) Immature Grans (Abs) (test code 0.0 x10E3/uL 0.0-0.1 = 88130-7) NRBC (test code = 12456-7) Hematology Comments: (test code = 54807-6) [facility]: CBC With Differential/Mstxleoq6318-18-39 04:00:00 Test Item Value Reference Range Interpretation [...] (test 1 % Not Estab. code = 70109-3) Immature Grans (Abs) (test code 0.0 x10E3/uL 0.0-0.1 = 94719-2) NRBC (test code = 55201-4) Hematology Comments: (test code = 22174-0) [facility]: CBC With Differential/Wzapreif6030-37-52 04:00:00 Test Item Value Reference Range Interpretation [...] (test 1 % Not Estab. code = 70090-6) Immature Grans (Abs) (test code 0.0 x10E3/uL 0.0-0.1 = 93589-2) NRBC (test code = 42951-5) Hematology Comments: (test code = 97819-4) [facility] Description: CBC With Differential/Gmjicnxr4507-22-04 04:00:00 Test Item Value Reference Range Interpretation [...] (test 1 % Not Estab. code = 69912-7) Immature Grans (Abs) (test code 0.0 x10E3/uL 0.0-0.1 = 35836-3) NRBC (test code = 65629-3) Hematology Comments: (test code = 52621-1) [facility] Description: CBC With Differential/Ujcefkly8091-36-42 04:00:00 Test Item Value Reference Range Interpretation [...] (test 1 % Not Estab. code = 98811-1) Immature Grans (Abs) (test code 0.0 x10E3/uL 0.0-0.1 = 97070-5) NRBC (test code = 04636-3) Hematology Comments: (test code = 82900-4) [facility] Description: Magnesium [Mass/volume] in Serum or Plasma 2020-10-30 02:31:00 Test Item Value Reference Range Interpretation Comments Magnesium (test code = 75570-0) 1.6 mg/dL 1.6-2.3 [facility] Description: Magnesium [Mass/volume] in Serum or Plasma 2020-10-30 02:31:00 Test Item Value Reference Range Interpretation Comments Magnesium (test code = 50424-0) 1.6 mg/dL 1.6-2.3 [facility] Description: Magnesium [Mass/volume] in Serum or Plasma 2020-10-30 02:31:00 Test Item Value Reference Range Interpretation Comments Magnesium (test code = 59659-0) 1.6 mg/dL 1.6-2.3 [facility] Description: Magnesium [Mass/volume] in Serum or Plasma 2020-10-30 02:31:00 Test Item Value Reference Range Interpretation Comments Magnesium (test code = 44140-5) 1.6 mg/dL 1.6-2.3 [facility] Description: Magnesium [Mass/volume] in Serum or Plasma 2020-10-30 02:31:00 Test Item Value Reference Range Interpretation Comments Magnesium (test code = 26752-9) 1.6 mg/dL 1.6-2.3 [facility] Description: Magnesium [Mass/volume] in Serum or Plasma 2020-10-30 02:31:00 Test Item Value Reference Range Interpretation Comments Magnesium (test code = 41204-9) 1.6 mg/dL 1.6-2.3 [facility] Description: Magnesium [Mass/volume] in Serum or Plasma 2020-10-30 02:31:00 Test Item Value Reference Range Interpretation Comments Magnesium (test code = 02882-6) 1.6 mg/dL 1.6-2.3 [facility] Description: Magnesium [Mass/volume] in Serum or Plasma 2020-10-30 02:31:00 Test Item Value Reference Range Interpretation Comments Magnesium (test code = 71869-7) 1.6 mg/dL 1.6-2.3 [facility] Description: Magnesium [Mass/volume] in Serum or Plasma 2020-10-30 02:31:00 Test Item Value Reference Range Interpretation Comments Magnesium (test code = 10185-4) 1.6 mg/dL 1.6-2.3 [facility] Description: Magnesium [Mass/volume] in Serum or Plasma 2020-10-30 02:31:00 Test Item Value Reference Range Interpretation Comments Magnesium (test code = 85717-0) 1.6 mg/dL 1.6-2.3 [facility] Description: Magnesium [Mass/volume] in Serum or Plasma 2020-10-30 02:31:00 Test Item Value Reference Range Interpretation Comments Magnesium (test code = 93726-6) 1.6 mg/dL 1.6-2.3 [facility] Description: Magnesium [Mass/volume] in Serum or Plasma 2020-10-30 02:31:00 Test Item Value Reference Range Interpretation Comments Magnesium (test code = 45355-8) 1.6 mg/dL 1.6-2.3 [facility] Description: Magnesium [Mass/volume] in Serum or Plasma 2020-10-30 02:31:00 Test Item Value Reference Range Interpretation Comments Magnesium (test code = 96640-5) 1.6 mg/dL 1.6-2.3 [facility] Description: Magnesium [Mass/volume] in Serum or Plasma 2020-10-30 02:31:00 Test Item Value Reference Range Interpretation Comments Magnesium (test code = 98953-4) 1.6 mg/dL 1.6-2.3 [facility] Description: Magnesium [Mass/volume] in Serum or Plasma 2020-10-30 02:31:00 Test Item Value Reference Range Interpretation Comments Magnesium (test code = 83396-1) 1.6 mg/dL 1.6-2.3 [facility] Description: Magnesium [Mass/volume] in Serum or Plasma 2020-10-30 02:31:00 Test Item Value Reference Range Interpretation Comments Magnesium (test code = 70683-7) 1.6 mg/dL 1.6-2.3 [facility] Description: Magnesium [Mass/volume] in Serum or Plasma 2020-10-30 02:31:00 Test Item Value Reference Range Interpretation Comments Magnesium (test code = 89390-6) 1.6 mg/dL 1.6-2.3 [facility] Description: Magnesium [Mass/volume] in Serum or Plasma 2020-10-30 02:31:00 Test Item Value Reference Range Interpretation Comments Magnesium (test code = 91877-3) 1.6 mg/dL 1.6-2.3 [facility] Description: Magnesium [Mass/volume] in Serum or Plasma 2020-10-30 02:31:00 Test Item Value Reference Range Interpretation Comments Magnesium (test code = 40355-5) 1.6 mg/dL 1.6-2.3 [facility] Description: Magnesium [Mass/volume] in Serum or Plasma 2020-10-30 02:31:00 Test Item Value Reference Range Interpretation Comments Magnesium (test code = 38127-6) 1.6 mg/dL 1.6-2.3 [facility] Description: Lipid [id number] 02:17:00 Test Item Value Reference Range Interpretation Comments Cholesterol, Total (test code = 167 mg/dL 268-397 8354-3) Triglycerides (test code = 2571-8) 60 mg/dL 0-149 HDL Cholesterol (test code = 33 mg/dL >39 L 2084-9) VLDL Cholesterol Renuka (test code = 12 mg/dL 5-40 48474-9) LDL Chol Calc (NIH) (test code = 122 mg/dL 0-99 H 36128-1) Comment: (test code = 49368-5) [facility] Description: Lipid [id number] 02:17:00 Test Item Value Reference Range Interpretation Comments Cholesterol, Total (test code = 167 mg/dL 149-285 3951-3) Triglycerides (test code = 2571-8) 60 mg/dL 0-149 HDL Cholesterol (test code = 33 mg/dL >39 L 2085-9) VLDL Cholesterol Renuka (test code = 12 mg/dL 5-40 59451-8) LDL Chol Calc (NIH) (test code = 122 mg/dL 0-99 H 36297-9) Comment: (test code = 95661-0) [employer] Description: Lipid [id number] 02:17:00 Test Item Value Reference Range Interpretation Comments Cholesterol, Total (test code = 167 mg/dL 218-446 3272-3) Triglycerides (test code = 2571-8) 60 mg/dL 0-149 HDL Cholesterol (test code = 33 mg/dL >39 L 2085-9) VLDL Cholesterol Renuka (test code = 12 mg/dL 5-40 28984-5) LDL Chol Calc (NIH) (test code = 122 mg/dL 0-99 H 45452-1) Comment: (test code = 22804-3) [employer] Description: Lipid [id number] 02:17:00 Test Item Value Reference Range Interpretation Comments Cholesterol, Total (test code = 167 mg/dL 826-361 4033-3) Triglycerides (test code = 2571-8) 60 mg/dL 0-149 HDL Cholesterol (test code = 33 mg/dL >39 L 2085-9) VLDL Cholesterol Renuka (test code = 12 mg/dL 5-40 04306-1) LDL Chol Calc (NIH) (test code = 122 mg/dL 0-99 H 46168-9) Comment: (test code = 33713-9) [employer] Description: Lipid [id number] 02:17:00 Test Item Value Reference Range Interpretation Comments Cholesterol, Total (test code = 167 mg/dL 268-108 0602-3) Triglycerides (test code = 2571-8) 60 mg/dL 0-149 HDL Cholesterol (test code = 33 mg/dL >39 L 2085-9) VLDL Cholesterol Renuka (test code = 12 mg/dL 5-40 47659-3) LDL Chol Calc (NIH) (test code = 122 mg/dL 0-99 H 16022-7) Comment: (test code = 10230-0) [employer] Description: Lipid [id number] 02:17:00 Test Item Value Reference Range Interpretation Comments Cholesterol, Total (test code = 167 mg/dL 248-744 7562-3) Triglycerides (test code = 2571-8) 60 mg/dL 0-149 HDL Cholesterol (test code = 33 mg/dL >39 L 2085-9) VLDL Cholesterol Renuka (test code = 12 mg/dL 5-40 49849-1) LDL Chol Calc (NIH) (test code = 122 mg/dL 0-99 H 55998-1) Comment: (test code = 89802-7) [employer] Description: Lipid [id number] 02:17:00 Test Item Value Reference Range Interpretation Comments Cholesterol, Total (test code = 167 mg/dL 981-627 6524-3) Triglycerides (test code = 2571-8) 60 mg/dL 0-149 HDL Cholesterol (test code = 33 mg/dL >39 L 2085-9) VLDL Cholesterol Renuka (test code = 12 mg/dL 5-40 06034-4) LDL Chol Calc (NIH) (test code = 122 mg/dL 0-99 H 92760-3) Comment: (test code = 18593-0) [employer] Description: Lipid [id number] 02:17:00 Test Item Value Reference Range Interpretation Comments Cholesterol, Total (test code = 167 mg/dL 822-505 0995-3) Triglycerides (test code = 2571-8) 60 mg/dL 0-149 HDL Cholesterol (test code = 33 mg/dL >39 L 2085-9) VLDL Cholesterol Renuka (test code = 12 mg/dL 5-40 19117-3) LDL Chol Calc (NIH) (test code = 122 mg/dL 0-99 H 04366-9) Comment: (test code = 59056-8) [employer] Description: Lipid [id number] 02:17:00 Test Item Value Reference Range Interpretation Comments Cholesterol, Total (test code = 167 mg/dL 293-256 6051-3) Triglycerides (test code = 2571-8) 60 mg/dL 0-149 HDL Cholesterol (test code = 33 mg/dL >39 L 2085-9) VLDL Cholesterol Renuka (test code = 12 mg/dL 5-40 31387-2) LDL Chol Calc (NIH) (test code = 122 mg/dL 0-99 H 50495-7) Comment: (test code = 41968-6) [employer] Description: Lipid [id number] 02:17:00 Test Item Value Reference Range Interpretation Comments Cholesterol, Total (test code = 167 mg/dL 282-985 3268-3) Triglycerides (test code = 2571-8) 60 mg/dL 0-149 HDL Cholesterol (test code = 33 mg/dL >39 L 2085-9) VLDL Cholesterol Renuka (test code = 12 mg/dL 5-40 22877-9) LDL Chol Calc (NIH) (test code = 122 mg/dL 0-99 H 16249-7) Comment: (test code = 79349-6) [employer] Description: Lipid [id number] 02:17:00 Test Item Value Reference Range Interpretation Comments Cholesterol, Total (test code = 167 mg/dL 331-030 2728-3) Triglycerides (test code = 2571-8) 60 mg/dL 0-149 HDL Cholesterol (test code = 33 mg/dL >39 L 2085-9) VLDL Cholesterol Renuka (test code = 12 mg/dL 5-40 09722-6) LDL Chol Calc (NIH) (test code = 122 mg/dL 0-99 H 73391-8) Comment: (test code = 41279-2) [employer] Description: Lipid [id number] 02:17:00 Test Item Value Reference Range Interpretation Comments Cholesterol, Total (test code = 167 mg/dL 761-828 5829-3) Triglycerides (test code = 2571-8) 60 mg/dL 0-149 HDL Cholesterol (test code = 33 mg/dL >39 L 2085-9) VLDL Cholesterol Renuka (test code = 12 mg/dL 5-40 06671-1) LDL Chol Calc (NIH) (test code = 122 mg/dL 0-99 H 78648-0) Comment: (test code = 61606-3) [employer] Description: Lipid [id number] 02:17:00 Test Item Value Reference Range Interpretation Comments Cholesterol, Total (test code = 167 mg/dL 967-332 4249-3) Triglycerides (test code = 2571-8) 60 mg/dL 0-149 HDL Cholesterol (test code = 33 mg/dL >39 L 5-9) VLDL Cholesterol Renuka (test code = 12 mg/dL 5-40 81983-6) LDL Chol Calc (NIH) (test code = 122 mg/dL 0-99 H 96447-8) Comment: (test code = 71044-3) [employer] Description: Lipid [id number] 02:17:00 Test Item Value Reference Range Interpretation Comments Cholesterol, Total (test code = 167 mg/dL 574-975 4367-3) Triglycerides (test code = 2571-8) 60 mg/dL 0-149 HDL Cholesterol (test code = 33 mg/dL >39 L 5-9) VLDL Cholesterol Renuka (test code = 12 mg/dL 5-40 94903-6) LDL Chol Calc (NIH) (test code = 122 mg/dL 0-99 H 22369-5) Comment: (test code = 66650-1) [employer] Description: Lipid [id number] 02:17:00 Test Item Value Reference Range Interpretation Comments Cholesterol, Total (test code = 167 mg/dL 687-351 7548-3) Triglycerides (test code = 2571-8) 60 mg/dL 0-149 HDL Cholesterol (test code = 33 mg/dL >39 L 5-9) VLDL Cholesterol Renuka (test code = 12 mg/dL 5-40 97549-1) LDL Chol Calc (NIH) (test code = 122 mg/dL 0-99 H 39807-8) Comment: (test code = 59674-9) [employer] Description: Lipid [id number] 02:17:00 Test Item Value Reference Range Interpretation Comments Cholesterol, Total (test code = 167 mg/dL 559-788 5360-3) Triglycerides (test code = 2571-8) 60 mg/dL 0-149 HDL Cholesterol (test code = 33 mg/dL >39 L 5-9) VLDL Cholesterol Renuka (test code = 12 mg/dL 5-40 89495-9) LDL Chol Calc (NIH) (test code = 122 mg/dL 0-99 H 26219-6) Comment: (test code = 33021-8) [employer] Description: Lipid [id number] 02:17:00 Test Item Value Reference Range Interpretation Comments Cholesterol, Total (test code = 167 mg/dL 289-101 3787-3) Triglycerides (test code = 2571-8) 60 mg/dL 0-149 HDL Cholesterol (test code = 33 mg/dL >39 L 2085-9) VLDL Cholesterol Renuka (test code = 12 mg/dL 5-40 21047-7) LDL Chol Calc (NIH) (test code = 122 mg/dL 0-99 H 26380-8) Comment: (test code = 42873-3) [employer] Description: Lipid [id number] 02:17:00 Test Item Value Reference Range Interpretation Comments Cholesterol, Total (test code = 167 mg/dL 514-290 4505-3) Triglycerides (test code = 2571-8) 60 mg/dL 0-149 HDL Cholesterol (test code = 33 mg/dL >39 L 2085-9) VLDL Cholesterol Renuka (test code = 12 mg/dL 5-40 62632-2) LDL Chol Calc (NIH) (test code = 122 mg/dL 0-99 H 66695-0) Comment: (test code = 69921-3) [employer] Description: Lipid [id number] 02:17:00 Test Item Value Reference Range Interpretation Comments Cholesterol, Total (test code = 167 mg/dL 547-678 6152-3) Triglycerides (test code = 2571-8) 60 mg/dL 0-149 HDL Cholesterol (test code = 33 mg/dL >39 L 5-9) VLDL Cholesterol Renuka (test code = 12 mg/dL 5-40 74865-9) LDL Chol Calc (NIH) (test code = 122 mg/dL 0-99 H 33297-2) Comment: (test code = 61888-4) [employer] Description: Lipid [id number] 02:17:00 Test Item Value Reference Range Interpretation Comments Cholesterol, Total (test code = 167 mg/dL 300-722 8706-3) Triglycerides (test code = 2571-8) 60 mg/dL 0-149 HDL Cholesterol (test code = 33 mg/dL >39 L 2085-9) VLDL Cholesterol Renuka (test code = 12 mg/dL 5-40 82387-7) LDL Chol Calc (NIH) (test code = 122 mg/dL 0-99 H 21788-5) Comment: (test code = 59912-6) [facility] Description: Comp. Metabolic Panel (14)2020-10-30 01:58:00 Test Item Value Reference Range Interpretation Comments Glucose (test code 50 mg/dL 65-99 L = 2345-7) BUN (test code = 52 mg/dL 6-24 H 3094-0) Creatinine (test 2.04 mg/dL 0.76-1.27 H code = 2160-0) eGFR If NonAfricn 38 >59 L Am (test code = mL/min/1.73 04161-9) eGFR If Africn Am 44 >59 L [facility] currently (test code = mL/min/1[place] [address]-8) compliance with the current recommendations of the [employer]. Lab oralndo will update re porting as new guidelin es are published from the NKF-ASN Task force.
<br/ >Perfor med by:
[facility] [place] Kaur (HD)

BUN/Creatinine 25 9-20 H Ratio (test code = 3097-3) Sodium (test code = 142 mmol/L 942-174 1957-2) Potassium (test 4.1 mmol/L 3.5-5.2 code = 2823-3) Chloride (test code 103 mmol/L 96-106 = 2075-0) Carbon Dioxide, 27 mmol/L 20-29 Total (test code = 2027-) Calcium (test code 8.8 mg/dL 8.7-10.2 = 25585-8) Protein, Total 6.8 g/dL 6.0-8.5 (test code = 2885-2) Albumin (test code 3.3 g/dL 4.0-5.0 L = 1751-7) Globulin, Total 3.5 g/dL 1.5-4.5 (test code = 71840-5) A/G Ratio (test 0.9 1.2-2.2 L code = 1759-0) Bilirubin, Total 0.7 mg/dL 0.0-1.2 (test code = 1975-2) Alkaline 140 IU/L 48-121 H Phosphatase (test code = 6768-6) AST (SGOT) (test 14 IU/L 0-40 code = 1920-8) ALT (SGPT) (test 21 IU/L 0-44 code = 1742-6) [facility] Description: Comp. Metabolic Panel (14)2020-10-30 01:58:00 Test Item Value Reference Range Interpretation Comments Glucose (test code 50 mg/dL 65-99 L = 2345-7) BUN (test code = 52 mg/dL 6-24 H 3094-0) Creatinine (test 2.04 mg/dL 0.76-1.27 H code = 2160-0) eGFR If NonAfricn 38 >59 L Am (test code = mL/min/1.73 75929-4) eGFR If Africn Am 44 >59 L [facility] currently (test code = mL/min/1[place]73 [place] [address]-5) compliance with the current recommendations of the National Kid[employer]. Lab [place] will update re porting as new guidelin es are published from the NKF-ASN Task force.
<br/ >Perfor med by:
Lab [place] ([place])

BUN/Creatinine 25 9-20 H Ratio (test code = 3097-3) Sodium (test code = 142 mmol/L 574-317 8748-2) Potassium (test 4.1 mmol/L 3.5-5.2 code = 2823-3) Chloride (test code 103 mmol/L 96-106 = 2075-0) Carbon Dioxide, 27 mmol/L 20-29 Total (test code = 2027-) Calcium (test code 8.8 mg/dL 8.7-10.2 = 57925-0) Protein, Total 6.8 g/dL 6.0-8.5 (test code = 2885-2) Albumin (test code 3.3 g/dL 4.0-5.0 L = 1751-7) Globulin, Total 3.5 g/dL 1.5-4.5 (test code = 47332-0) A/G Ratio (test 0.9 1.2-2.2 L code = 1759-0) Bilirubin, Total 0.7 mg/dL 0.0-1.2 (test code = 1974-2) Alkaline 140 IU/L 48-121 H Phosphatase (test code = 6768-6) AST (SGOT) (test 14 IU/L 0-40 code = 1920-8) ALT (SGPT) (test 21 IU/L 0-44 code = 1742-6) [facility] Description: Comp. Metabolic Panel (14)2020-10-30 01:58:00 Test Item Value Reference Range Interpretation Comments Glucose (test code 50 mg/dL 65-99 L = 2345-7) BUN (test code = 52 mg/dL 6-24 H 3094-0) Creatinine (test 2.04 mg/dL 0.76-1.27 H code = 2160-0) eGFR If NonAfricn 38 >59 L Am (test code = mL/min/1.73 82144-5) eGFR If Africn Am 44 >59 L [facility] currently (test code = mL/min/1.73 [place] [address]-1) compliance with the current recommendations of the [employer] Kid[employer] Foundation. Lab [place] will update re porting as new guidelin es are published from the NKF-ASN Task force.
<br/ >Perfor med by:
Lab [place] Kaur (HD)

BUN/Creatinine 25 9-20 H Ratio (test code = 3097-3) Sodium (test code = 142 mmol/L 740-536 4741-2) Potassium (test 4.1 mmol/L 3.5-5.2 code = 2823-3) Chloride (test code 103 mmol/L 96-106 = 5-0) Carbon Dioxide, 27 mmol/L 20-29 Total (test code = 2027-) Calcium (test code 8.8 mg/dL 8.7-10.2 = 81976-4) Protein, Total 6.8 g/dL 6.0-8.5 (test code = 2885-2) Albumin (test code 3.3 g/dL 4.0-5.0 L = 1751-7) Globulin, Total 3.5 g/dL 1.5-4.5 (test code = 57788-2) A/G Ratio (test 0.9 1.2-2.2 L code = 1759-0) Bilirubin, Total 0.7 mg/dL 0.0-1.2 (test code = 1975-2) Alkaline 140 IU/L 48-121 H Phosphatase (test code = 6768-6) AST (SGOT) (test 14 IU/L 0-40 code = 1920-8) ALT (SGPT) (test 21 IU/L 0-44 code = 1742-6) [facility] Description: Comp. Metabolic Panel (14)2020-10-30 01:58:00 Test Item Value Reference Range Interpretation Comments Glucose (test code 50 mg/dL 65-99 L = 2345-7) BUN (test code = 52 mg/dL 6-24 H 3094-0) Creatinine (test 2.04 mg/dL 0.76-1.27 H code = 2160-0) eGFR If NonAfricn 38 >59 L Am (test code = mL/min/1.73 04347-3) eGFR If Africn Am 44 >59 L [facility] currently (test code = mL/min/1[place]73 [place] [address]-3) compliance with the current recommendations of the National Kid[employer] Foundation. [place] will update re porting as new guidelin es are published from the NKF-ASN Task force.
<br/ >Perfor med by:
Lab [place] (HD)

BUN/Creatinine 25 9-20 H Ratio (test code = 3097-3) Sodium (test code = 142 mmol/L 327-622 4420-2) Potassium (test 4.1 mmol/L 3.5-5.2 code = 2823-3) Chloride (test code 103 mmol/L 96-106 = 5-0) Carbon Dioxide, 27 mmol/L 20-29 Total (test code = 2027-9) Calcium (test code 8.8 mg/dL 8.7-10.2 = 41456-1) Protein, Total 6.8 g/dL 6.0-8.5 (test code = 2885-2) Albumin (test code 3.3 g/dL 4.0-5.0 L = 1751-7) Globulin, Total 3.5 g/dL 1.5-4.5 (test code = 34026-8) A/G Ratio (test 0.9 1.2-2.2 L code = 1759-0) Bilirubin, Total 0.7 mg/dL 0.0-1.2 (test code = 1975-2) Alkaline 140 IU/L 48-121 H Phosphatase (test code = 6768-6) AST (SGOT) (test 14 IU/L 0-40 code = 1920-8) ALT (SGPT) (test 21 IU/L 0-44 code = 1742-6) [facility] Description: Comp. Metabolic Panel (14)2020-10-30 01:58:00 Test Item Value Reference Range Interpretation Comments Glucose (test code 50 mg/dL 65-99 L = 2345-7) BUN (test code = 52 mg/dL 6-24 H 3094-0) Creatinine (test 2.04 mg/dL 0.76-1.27 H code = 2160-0) eGFR If NonAfricn 38 >59 L Am (test code = mL/min/1.73 56024-5) eGFR If Africn Am 44 >59 L [facility] currently (test code = mL/min/1[place]73 [place] [address]-7) compliance with the current recommendations of the National Kidney Foundation. [place] will update re porting as new guidelin es are published from the NKF-ASN Task force.
<br/ >Perfor med by:
Lab [place] (HD)

BUN/Creatinine 25 9-20 H Ratio (test code = 3097-3) Sodium (test code = 142 mmol/L 213-796 8821-2) Potassium (test 4.1 mmol/L 3.5-5.2 code = 2823-3) Chloride (test code 103 mmol/L 96-106 = 2075-0) Carbon Dioxide, 27 mmol/L 20-29 Total (test code = 2027-) Calcium (test code 8.8 mg/dL 8.7-10.2 = 68160-7) Protein, Total 6.8 g/dL 6.0-8.5 (test code = 2885-2) Albumin (test code 3.3 g/dL 4.0-5.0 L = 1751-7) Globulin, Total 3.5 g/dL 1.5-4.5 (test code = 83297-7) A/G Ratio (test 0.9 1.2-2.2 L code = 1759-0) Bilirubin, Total 0.7 mg/dL 0.0-1.2 (test code = 1975-2) Alkaline 140 IU/L 48-121 H Phosphatase (test code = 6768-6) AST (SGOT) (test 14 IU/L 0-40 code = 1920-8) ALT (SGPT) (test 21 IU/L 0-44 code = 1742-6) [facility] (14)2020-10-30 01:58:00 Test Item Value Reference Range Interpretation Comments Glucose (test code 50 mg/dL 65-99 L = 2345-7) BUN (test code = 52 mg/dL 6-24 H 3094-0) Creatinine (test 2.04 mg/dL 0.76-1.27 H code = 2160-0) eGFR If NonAfricn 38 >59 L Am (test code = mL/min/1.73 25528-3) eGFR If Africn Am 44 >59 L [facility] currently (test code = mL/min/1[place]73 [place] [address]-9) compliance with the current recommendations of the National Kidney Foundation. [place] will update re porting as new guidelin es are published from the NKF-ASN Task force.
<br/ >Perfor med by:
Lab [place] (HD)

BUN/Creatinine 25 9-20 H Ratio (test code = 3097-3) Sodium (test code = 142 mmol/L 361-825 2159-2) Potassium (test 4.1 mmol/L 3.5-5.2 code = 2823-3) Chloride (test code 103 mmol/L 96-106 = 2075-0) Carbon Dioxide, 27 mmol/L 20-29 Total (test code = 2027-) Calcium (test code 8.8 mg/dL 8.7-10.2 = 40527-7) Protein, Total 6.8 g/dL 6.0-8.5 (test code = 2885-2) Albumin (test code 3.3 g/dL 4.0-5.0 L = 1751-7) Globulin, Total 3.5 g/dL 1.5-4.5 (test code = 42179-9) A/G Ratio (test 0.9 1.2-2.2 L code = 1759-0) Bilirubin, Total 0.7 mg/dL 0.0-1.2 (test code = 1975-2) Alkaline 140 IU/L 48-121 H Phosphatase (test code = 6768-6) AST (SGOT) (test 14 IU/L 0-40 code = 1920-8) ALT (SGPT) (test 21 IU/L 0-44 code = 1742-6) [facility] Description: Comp. Metabolic Panel (14)2020-10-30 01:58:00 Test Item Value Reference Range Interpretation Comments Glucose (test code 50 mg/dL 65-99 L = 2345-7) BUN (test code = 52 mg/dL 6-24 H 3094-0) Creatinine (test 2.04 mg/dL 0.76-1.27 H code = 2160-0) eGFR If NonAfricn 38 >59 L Am (test code = mL/min/1.73 64375-2) eGFR If Africn Am 44 >59 L [facility] currently (test code = mL/min/1.73 [place] [address]-1) compliance with the current recommendations of the National Kidney Foundation. [place] will update re porting as new guidelin es are published from the NKF-ASN Task force.
<br/ >Perfor med by:
Lab [place] (HD)

BUN/Creatinine 25 9-20 H Ratio (test code = 3097-3) Sodium (test code = 142 mmol/L 247-597 0298-2) Potassium (test 4.1 mmol/L 3.5-5.2 code = 2823-3) Chloride (test code 103 mmol/L 96-106 = 2075-0) Carbon Dioxide, 27 mmol/L 20-29 Total (test code = 2027-) Calcium (test code 8.8 mg/dL 8.7-10.2 = 47887-8) Protein, Total 6.8 g/dL 6.0-8.5 (test code = 2885-2) Albumin (test code 3.3 g/dL 4.0-5.0 L = 1751-7) Globulin, Total 3.5 g/dL 1.5-4.5 (test code = 43981-5) A/G Ratio (test 0.9 1.2-2.2 L code = 1759-0) Bilirubin, Total 0.7 mg/dL 0.0-1.2 (test code = 1975-2) Alkaline 140 IU/L 48-121 H Phosphatase (test code = 6768-6) AST (SGOT) (test 14 IU/L 0-40 code = 1920-8) ALT (SGPT) (test 21 IU/L 0-44 code = 1742-6) [facility] (14)2020-10-30 01:58:00 Test Item Value Reference Range Interpretation Comments Glucose (test code 50 mg/dL 65-99 L = 2345-7) BUN (test code = 52 mg/dL 6-24 H 3094-0) Creatinine (test 2.04 mg/dL 0.76-1.27 H code = 2160-0) eGFR If NonAfricn 38 >59 L Am (test code = mL/min/1.73 38142-2) eGFR If Africn Am 44 >59 L [facility] currently (test code = mL/min/1.73 [place] [address]-2) compliance with the current recommendations of the National Kidney Foundation. [place] will update re porting as new guidelin es are published from the NKF-ASN Task force.
<br/ >Perfor med by:
Lab [place] Kaur (HD)

BUN/Creatinine 25 9-20 H Ratio (test code = 3097-3) Sodium (test code = 142 mmol/L 364-744 3424-2) Potassium (test 4.1 mmol/L 3.5-5.2 code = 2823-3) Chloride (test code 103 mmol/L 96-106 = 2075-0) Carbon Dioxide, 27 mmol/L 20-29 Total (test code = 2027-) Calcium (test code 8.8 mg/dL 8.7-10.2 = 58821-8) Protein, Total 6.8 g/dL 6.0-8.5 (test code = 2885-2) Albumin (test code 3.3 g/dL 4.0-5.0 L = 1751-7) Globulin, Total 3.5 g/dL 1.5-4.5 (test code = 50839-1) A/G Ratio (test 0.9 1.2-2.2 L code = 1759-0) Bilirubin, Total 0.7 mg/dL 0.0-1.2 (test code = 1975-2) Alkaline 140 IU/L 48-121 H Phosphatase (test code = 6768-6) AST (SGOT) (test 14 IU/L 0-40 code = 1920-8) ALT (SGPT) (test 21 IU/L 0-44 code = 1742-6) [facility] Description: Comp. Metabolic Panel (14)2020-10-30 01:58:00 Test Item Value Reference Range Interpretation Comments Glucose (test code 50 mg/dL 65-99 L = 2345-7) BUN (test code = 52 mg/dL 6-24 H 3094-0) Creatinine (test 2.04 mg/dL 0.76-1.27 H code = 2160-0) eGFR If NonAfricn 38 >59 L Am (test code = mL/min/1.73 69675-8) eGFR If Africn Am 44 >59 L [facility] currently (test code = mL/min/1.73 [place] [address]-4) compliance with the current recommendations of the National Kidney Foundation. [place] will update re porting as new guidelin es are published from the NKF-ASN Task force.
<br/ >Perfor med by:
Lab [place] Kaur (HD)

BUN/Creatinine 25 9-20 H Ratio (test code = 3097-3) Sodium (test code = 142 mmol/L 466-998 3448-2) Potassium (test 4.1 mmol/L 3.5-5.2 code = 2823-3) Chloride (test code 103 mmol/L 96-106 = 2075-0) Carbon Dioxide, 27 mmol/L 20-29 Total (test code = 2027-9) Calcium (test code 8.8 mg/dL 8.7-10.2 = 06145-9) Protein, Total 6.8 g/dL 6.0-8.5 (test code = 2885-2) Albumin (test code 3.3 g/dL 4.0-5.0 L = 1751-7) Globulin, Total 3.5 g/dL 1.5-4.5 (test code = 06197-4) A/G Ratio (test 0.9 1.2-2.2 L code = 1759-0) Bilirubin, Total 0.7 mg/dL 0.0-1.2 (test code = 1975-2) Alkaline 140 IU/L 48-121 H Phosphatase (test code = 6768-6) AST (SGOT) (test 14 IU/L 0-40 code = 1920-8) ALT (SGPT) (test 21 IU/L 0-44 code = 1742-6) [facility] Description: Comp. Metabolic Panel (14)2020-10-30 01:58:00 Test Item Value Reference Range Interpretation Comments Glucose (test code 50 mg/dL 65-99 L = 2345-7) BUN (test code = 52 mg/dL 6-24 H 3094-0) Creatinine (test 2.04 mg/dL 0.76-1.27 H code = 2160-0) eGFR If NonAfricn 38 >59 L Am (test code = mL/min/1.73 38987-5) eGFR If Africn Am 44 >59 L [facility] currently (test code = mL/min/1.73 [place] [address]-9) compliance with the current recommendations of the National Kidney Foundation. [place] will update re porting as new guidelin es are published from the NKF-ASN Task force.
<br/ >Perfor med by:
Lab [place] Kaur (HD)

BUN/Creatinine 25 9-20 H Ratio (test code = 3097-3) Sodium (test code = 142 mmol/L 282-878 2729-2) Potassium (test 4.1 mmol/L 3.5-5.2 code = 2823-3) Chloride (test code 103 mmol/L 96-106 = 2075-0) Carbon Dioxide, 27 mmol/L 20-29 Total (test code = 2027-9) Calcium (test code 8.8 mg/dL 8.7-10.2 = 11661-6) Protein, Total 6.8 g/dL 6.0-8.5 (test code = 2885-2) Albumin (test code 3.3 g/dL 4.0-5.0 L = 1751-7) Globulin, Total 3.5 g/dL 1.5-4.5 (test code = 06726-5) A/G Ratio (test 0.9 1.2-2.2 L code = 1759-0) Bilirubin, Total 0.7 mg/dL 0.0-1.2 (test code = 1975-2) Alkaline 140 IU/L 48-121 H Phosphatase (test code = 6768-6) AST (SGOT) (test 14 IU/L 0-40 code = 1920-8) ALT (SGPT) (test 21 IU/L 0-44 code = 1742-6) [facility] Description: Comp. Metabolic Panel (14)2020-10-30 01:58:00 Test Item Value Reference Range Interpretation Comments Glucose (test code 50 mg/dL 65-99 L = 2345-7) BUN (test code = 52 mg/dL 6-24 H 3094-0) Creatinine (test 2.04 mg/dL 0.76-1.27 H code = 2160-0) eGFR If NonAfricn 38 >59 L Am (test code = mL/min/1.73 45796-7) eGFR If Africn Am 44 >59 L [facility] currently (test code = mL/min/1.73 [place] [address]-4) compliance with the current recommendations of the National Kidney Foundation. [place] will update re porting as new guidelin es are published from the NKF-ASN Task force.
<br/ >Perfor med by:
Lab [place] Kaur (HD)

BUN/Creatinine 25 9-20 H Ratio (test code = 3097-3) Sodium (test code = 142 mmol/L 999-780 7407-2) Potassium (test 4.1 mmol/L 3.5-5.2 code = 2823-3) Chloride (test code 103 mmol/L 96-106 = 2075-0) Carbon Dioxide, 27 mmol/L 20-29 Total (test code = 2027-9) Calcium (test code 8.8 mg/dL 8.7-10.2 = 08965-7) Protein, Total 6.8 g/dL 6.0-8.5 (test code = 2885-2) Albumin (test code 3.3 g/dL 4.0-5.0 L = 1751-7) Globulin, Total 3.5 g/dL 1.5-4.5 (test code = 05204-8) A/G Ratio (test 0.9 1.2-2.2 L code = 1759-0) Bilirubin, Total 0.7 mg/dL 0.0-1.2 (test code = 1975-2) Alkaline 140 IU/L 48-121 H Phosphatase (test code = 6768-6) AST (SGOT) (test 14 IU/L 0-40 code = 1920-8) ALT (SGPT) (test 21 IU/L 0-44 code = 1742-6) [facility] Description: Comp. Metabolic Panel (14)2020-10-30 01:58:00 Test Item Value Reference Range Interpretation Comments Glucose (test code 50 mg/dL 65-99 L = 2345-7) BUN (test code = 52 mg/dL 6-24 H 3094-0) Creatinine (test 2.04 mg/dL 0.76-1.27 H code = 2160-0) eGFR If NonAfricn 38 >59 L Am (test code = mL/min/1.73 78902-7) eGFR If Africn Am 44 >59 L [facility] currently (test code = mL/min/1.73 [place] [address]-0) compliance with the current recommendations of the National Kidney Foundation. [place] will update re porting as new guidelin es are published from the NKF-ASN Task force.
<br/ >Perfor med by:
Lab [place] Kaur (HD)

BUN/Creatinine 25 9-20 H Ratio (test code = 3097-3) Sodium (test code = 142 mmol/L 618-318 8488-2) Potassium (test 4.1 mmol/L 3.5-5.2 code = 2823-3) Chloride (test code 103 mmol/L 96-106 = 2075-0) Carbon Dioxide, 27 mmol/L 20-29 Total (test code = 2027-) Calcium (test code 8.8 mg/dL 8.7-10.2 = 60365-2) Protein, Total 6.8 g/dL 6.0-8.5 (test code = 2885-2) Albumin (test code 3.3 g/dL 4.0-5.0 L = 1751-7) Globulin, Total 3.5 g/dL 1.5-4.5 (test code = 85794-2) A/G Ratio (test 0.9 1.2-2.2 L code = 1759-0) Bilirubin, Total 0.7 mg/dL 0.0-1.2 (test code = 1975-2) Alkaline 140 IU/L 48-121 H Phosphatase (test code = 6768-6) AST (SGOT) (test 14 IU/L 0-40 code = 1920-8) ALT (SGPT) (test 21 IU/L 0-44 code = 1742-6) [facility] Description: Comp. Metabolic Panel (14)2020-10-30 01:58:00 Test Item Value Reference Range Interpretation Comments Glucose (test code 50 mg/dL 65-99 L = 2345-7) BUN (test code = 52 mg/dL 6-24 H 3094-0) Creatinine (test 2.04 mg/dL 0.76-1.27 H code = 2160-0) eGFR If NonAfricn 38 >59 L Am (test code = mL/min/1.73 28930-4) eGFR If Africn Am 44 >59 L [facility] currently (test code = mL/min/1.73 [place] [address]-2) compliance with the current recommendations of the National Kidney Foundation. [place] will update re porting as new guidelin es are published from the NKF-ASN Task force.
<br/ >Perfor med by:
Lab [place] Kaur (HD)

BUN/Creatinine 25 9-20 H Ratio (test code = 3097-3) Sodium (test code = 142 mmol/L 626-594 2826-2) Potassium (test 4.1 mmol/L 3.5-5.2 code = 2823-3) Chloride (test code 103 mmol/L 96-106 = 2075-0) Carbon Dioxide, 27 mmol/L 20-29 Total (test code = 2027-9) Calcium (test code 8.8 mg/dL 8.7-10.2 = 56982-5) Protein, Total 6.8 g/dL 6.0-8.5 (test code = 2885-2) Albumin (test code 3.3 g/dL 4.0-5.0 L = 1751-7) Globulin, Total 3.5 g/dL 1.5-4.5 (test code = 48749-8) A/G Ratio (test 0.9 1.2-2.2 L code = 1759-0) Bilirubin, Total 0.7 mg/dL 0.0-1.2 (test code = 1975-2) Alkaline 140 IU/L 48-121 H Phosphatase (test code = 6768-6) AST (SGOT) (test 14 IU/L 0-40 code = 1920-8) ALT (SGPT) (test 21 IU/L 0-44 code = 1742-6) [facility] Description: Comp. Metabolic Panel (14)2020-10-30 01:58:00 Test Item Value Reference Range Interpretation Comments Glucose (test code 50 mg/dL 65-99 L = 2345-7) BUN (test code = 52 mg/dL 6-24 H 3094-0) Creatinine (test 2.04 mg/dL 0.76-1.27 H code = 2160-0) eGFR If NonAfricn 38 >59 L Am (test code = mL/min/1.73 55568-5) eGFR If Africn Am 44 >59 L [facility] currently (test code = mL/min/1.73 [place] [address]-6) compliance with the current recommendations of the National Kidney Foundation. [place] will update re porting as new guidelin es are published from the NKF-ASN Task force.
<br/ >Perfor med by:
Lab [place] (HD)

BUN/Creatinine 25 9-20 H Ratio (test code = 3097-3) Sodium (test code = 142 mmol/L 514-884 5870-2) Potassium (test 4.1 mmol/L 3.5-5.2 code = 2823-3) Chloride (test code 103 mmol/L 96-106 = 2075-0) Carbon Dioxide, 27 mmol/L 20-29 Total (test code = 2027-) Calcium (test code 8.8 mg/dL 8.7-10.2 = 93983-8) Protein, Total 6.8 g/dL 6.0-8.5 (test code = 2885-2) Albumin (test code 3.3 g/dL 4.0-5.0 L = 1751-7) Globulin, Total 3.5 g/dL 1.5-4.5 (test code = 52007-2) A/G Ratio (test 0.9 1.2-2.2 L code = 1759-0) Bilirubin, Total 0.7 mg/dL 0.0-1.2 (test code = 1975-2) Alkaline 140 IU/L 48-121 H Phosphatase (test code = 6768-6) AST (SGOT) (test 14 IU/L 0-40 code = 1920-8) ALT (SGPT) (test 21 IU/L 0-44 code = 1742-6) [facility] Description: Comp. Metabolic Panel (14)2020-10-30 01:58:00 Test Item Value Reference Range Interpretation Comments Glucose (test code 50 mg/dL 65-99 L = 2345-7) BUN (test code = 52 mg/dL 6-24 H 3094-0) Creatinine (test 2.04 mg/dL 0.76-1.27 H code = 2160-0) eGFR If NonAfricn 38 >59 L Am (test code = mL/min/1.73 10249-6) eGFR If Africn Am 44 >59 L [facility] currently (test code = mL/min/1.73 [place] [address]-6) compliance with the current recommendations of the National Kidney Foundation. [place] will update re porting as new guidelin es are published from the NKF-ASN Task force.
<br/ >Perfor med by:
Lab [place] (HD)

BUN/Creatinine 25 9-20 H Ratio (test code = 3097-3) Sodium (test code = 142 mmol/L 008-634 4785-2) Potassium (test 4.1 mmol/L 3.5-5.2 code = 2823-3) Chloride (test code 103 mmol/L 96-106 = 2075-0) Carbon Dioxide, 27 mmol/L 20-29 Total (test code = 2027-) Calcium (test code 8.8 mg/dL 8.7-10.2 = 95941-6) Protein, Total 6.8 g/dL 6.0-8.5 (test code = 2885-2) Albumin (test code 3.3 g/dL 4.0-5.0 L = 1751-7) Globulin, Total 3.5 g/dL 1.5-4.5 (test code = 68535-7) A/G Ratio (test 0.9 1.2-2.2 L code = 1759-0) Bilirubin, Total 0.7 mg/dL 0.0-1.2 (test code = 1975-2) Alkaline 140 IU/L 48-121 H Phosphatase (test code = 6768-6) AST (SGOT) (test 14 IU/L 0-40 code = 1920-8) ALT (SGPT) (test 21 IU/L 0-44 code = 1742-6) [facility] Description: Comp. Metabolic Panel (14)2020-10-30 01:58:00 Test Item Value Reference Range Interpretation Comments Glucose (test code 50 mg/dL 65-99 L = 2345-7) BUN (test code = 52 mg/dL 6-24 H 3094-0) Creatinine (test 2.04 mg/dL 0.76-1.27 H code = 2160-0) eGFR If NonAfricn 38 >59 L Am (test code = mL/min/1.73 68712-7) eGFR If Africn Am 44 >59 L [facility] currently (test code = mL/min/1.73 [place] [address]-0) compliance with the current recommendations of the National Kidney Foundation. [place] will update re porting as new guidelin es are published from the NKF-ASN Task force.
<br/ >Perfor med by:
Lab [place] Kaur (HD)

BUN/Creatinine 25 9-20 H Ratio (test code = 3097-3) Sodium (test code = 142 mmol/L 791-134 9545-2) Potassium (test 4.1 mmol/L 3.5-5.2 code = 2823-3) Chloride (test code 103 mmol/L 96-106 = 2075-0) Carbon Dioxide, 27 mmol/L 20-29 Total (test code = 2027-9) Calcium (test code 8.8 mg/dL 8.7-10.2 = 61285-7) Protein, Total 6.8 g/dL 6.0-8.5 (test code = 2885-2) Albumin (test code 3.3 g/dL 4.0-5.0 L = 1751-7) Globulin, Total 3.5 g/dL 1.5-4.5 (test code = 78727-0) A/G Ratio (test 0.9 1.2-2.2 L code = 1759-0) Bilirubin, Total 0.7 mg/dL 0.0-1.2 (test code = 1975-2) Alkaline 140 IU/L 48-121 H Phosphatase (test code = 6768-6) AST (SGOT) (test 14 IU/L 0-40 code = 1920-8) ALT (SGPT) (test 21 IU/L 0-44 code = 1742-6) [facility] Description: Comp. Metabolic Panel (14)2020-10-30 01:58:00 Test Item Value Reference Range Interpretation Comments Glucose (test code 50 mg/dL 65-99 L = 2345-7) BUN (test code = 52 mg/dL 6-24 H 3094-0) Creatinine (test 2.04 mg/dL 0.76-1.27 H code = 2160-0) eGFR If NonAfricn 38 >59 L Am (test code = mL/min/1.73 76121-1) eGFR If Africn Am 44 >59 L [facility] currently (test code = mL/min/1.73 [place] 53312-4) compliance with the current recommendations of the National Kid[employer] Foundation. [place] will update re porting as new guidelin es are published from the NKF-ASN Task force.
<br/ >Perfor med by:
Lab [place] Kaur (HD)

BUN/Creatinine 25 9-20 H Ratio (test code = 3097-3) Sodium (test code = 142 mmol/L 547-227 4114-2) Potassium (test 4.1 mmol/L 3.5-5.2 code = 2823-3) Chloride (test code 103 mmol/L 96-106 = 2075-0) Carbon Dioxide, 27 mmol/L 20-29 Total (test code = 2027-9) Calcium (test code 8.8 mg/dL 8.7-10.2 = 16256-7) Protein, Total 6.8 g/dL 6.0-8.5 (test code = 2885-2) Albumin (test code 3.3 g/dL 4.0-5.0 L = 1751-7) Globulin, Total 3.5 g/dL 1.5-4.5 (test code = 34645-9) A/G Ratio (test 0.9 1.2-2.2 L code = 1759-0) Bilirubin, Total 0.7 mg/dL 0.0-1.2 (test code = 1975-2) Alkaline 140 IU/L 48-121 H Phosphatase (test code = 6768-6) AST (SGOT) (test 14 IU/L 0-40 code = 1920-8) ALT (SGPT) (test 21 IU/L 0-44 code = 1742-6) Access [facility] Description: Comp. Metabolic Panel (14)2020-10-30 01:58:00 Test Item Value Reference Range Interpretation Comments Glucose (test code 50 mg/dL 65-99 L = 2345-7) BUN (test code = 52 mg/dL 6-24 H 3094-0) Creatinine (test 2.04 mg/dL 0.76-1.27 H code = 2160-0) eGFR If NonAfricn 38 >59 L Am (test code = mL/min/1.73 64397-1) eGFR If Africn Am 44 >59 L [facility] currently (test code = mL/min/1[place] [address]-5) compliance with the current recommendations of the [employer]. [facility] [place] will update re porting as new guidelin es are published from the NKF-ASN Task force.
<br/ >Perfor med by:
[facility] [place] (HD)

BUN/Creatinine 25 9-20 H Ratio (test code = 3097-3) Sodium (test code = 142 mmol/L 828-994 1454-2) Potassium (test 4.1 mmol/L 3.5-5.2 code = 2823-3) Chloride (test code 103 mmol/L 96-106 = 2075-0) Carbon Dioxide, 27 mmol/L 20-29 Total (test code = 2027-) Calcium (test code 8.8 mg/dL 8.7-10.2 = 75153-5) Protein, Total 6.8 g/dL 6.0-8.5 (test code = 2885-2) Albumin (test code 3.3 g/dL 4.0-5.0 L = 1751-7) Globulin, Total 3.5 g/dL 1.5-4.5 (test code = 05726-0) A/G Ratio (test 0.9 1.2-2.2 L code = 1759-0) Bilirubin, Total 0.7 mg/dL 0.0-1.2 (test code = 1975-2) Alkaline 140 IU/L 48-121 H Phosphatase (test code = 6768-6) AST (SGOT) (test 14 IU/L 0-40 code = 1920-8) ALT (SGPT) (test 21 IU/L 0-44 code = 1742-6) Access [facility] Description: Comp. Metabolic Panel (14)2020-10-30 01:58:00 Test Item Value Reference Range Interpretation Comments Glucose (test code 50 mg/dL 65-99 L = 2345-7) BUN (test code = 52 mg/dL 6-24 H 3094-0) Creatinine (test 2.04 mg/dL 0.76-1.27 H code = 2160-0) eGFR If NonAfricn 38 >59 L Am (test code = mL/min/1.73 09071-9) eGFR If Africn Am 44 >59 L [facility] currently (test code = mL/min/1[place]73 [place] [address]-0) compliance with the current recommendations of the [employer]. [facility] [place] will update re porting as new guidelin es are published from the NKF-ASN Task force.
<br/ >Perfor med by:
[facility] [place] (HD)

BUN/Creatinine 25 9-20 H Ratio (test code = 3097-3) Sodium (test code = 142 mmol/L 302-253 0237-2) Potassium (test 4.1 mmol/L 3.5-5.2 code = 2823-3) Chloride (test code 103 mmol/L 96-106 = 2075-0) Carbon Dioxide, 27 mmol/L 20-29 Total (test code = 2027-9) Calcium (test code 8.8 mg/dL 8.7-10.2 = 56836-9) Protein, Total 6.8 g/dL 6.0-8.5 (test code = 2885-2) Albumin (test code 3.3 g/dL 4.0-5.0 L = 1751-7) Globulin, Total 3.5 g/dL 1.5-4.5 (test code = 51820-6) A/G Ratio (test 0.9 1.2-2.2 L code = 1759-0) Bilirubin, Total 0.7 mg/dL 0.0-1.2 (test code = 1975-2) Alkaline 140 IU/L 48-121 H Phosphatase (test code = 6768-6) AST (SGOT) (test 14 IU/L 0-40 code = 1920-8) ALT (SGPT) (test 21 IU/L 0-44 code = 1742-6) [facility]: Comp. Metabolic Panel (14)2020-10-30 01:58:00 Test Item Value Reference Range Interpretation Comments Glucose (test code 50 mg/dL 65-99 L = 2345-7) BUN (test code = 52 mg/dL 6-24 H 3094-0) Creatinine (test 2.04 mg/dL 0.76-1.27 H code = 2160-0) eGFR If NonAfricn 38 >59 L Am (test code = mL/min/1.73 12190-6) eGFR If Africn Am 44 >59 L [facility] currently (test code = mL/min/1[place]73 [place] [address]-0) compliance with the current recommendations of the [employer]. Lab [place] will update re porting as new guidelin es are published from the NKF-ASN Task force.
<br/ >Perfor med by:
Lab [place] Kaur (HD)

BUN/Creatinine 25 9-20 H Ratio (test code = 3097-3) Sodium (test code = 142 mmol/L 684-268 8632-2) Potassium (test 4.1 mmol/L 3.5-5.2 code = 2823-3) Chloride (test code 103 mmol/L 96-106 = 2075-0) Carbon Dioxide, 27 mmol/L 20-29 Total (test code = 2027-) Calcium (test code 8.8 mg/dL 8.7-10.2 = 03210-4) Protein, Total 6.8 g/dL 6.0-8.5 (test code = 2885-2) Albumin (test code 3.3 g/dL 4.0-5.0 L = 1751-7) Globulin, Total 3.5 g/dL 1.5-4.5 (test code = 38481-2) A/G Ratio (test 0.9 1.2-2.2 L code = 1759-0) Bilirubin, Total 0.7 mg/dL 0.0-1.2 (test code = 1975-2) Alkaline 140 IU/L 48-121 H Phosphatase (test code = 6768-6) AST (SGOT) (test 14 IU/L 0-40 code = 1920-8) ALT (SGPT) (test 21 IU/L 0-44 code = 1742-6) [facility] RIGHT COMPLETE 3 [id number] 11:29:03 [facility] : 1975 Sex: MRight hand, 3 viewsLocation code: [id number] HISTORY: Pain in second finger of right [...] Sylvester Case MD 10/29/2020 11:29 AM CDT [id number] OBTAINED CULTURE + GRAM [id number] 15:17:00 Test Item Value Reference Interpretation Comments [...] No organisms seen (BEAKER) (test code = 091546) SURGICALLY OBTAINED CULTURE + GRAM [id number] 14:58:00 Test Item Value Reference Interpretation Comments [...] No organisms seen (BEAKER) (test code = 752584) Tissue [id number] 09:25:00 Test Item Value Reference Range Interpretation Comments Case Report (test code Surgical Pathology = 104) Report Case: [id number] Authorizing Provider: Laura Nguyen MD Collected: 09/26/2020 07:56 AM Ordering Location: [address] Med/Surg Received: 09/26/2020 08:55 AM Pathologist: Hilda Mack MD Specimens: A) - Soft Tissue, Debridement, LEFT FOOT BONE CLEAN MARGIN. B) - Bone, LEFT FOOT 5TH METATARSAL HEAD. DIAGNOSIS (test code = [id number] 3220) FuZzEwMzNcZnRuYmpcdWMx IHtccnRmMVxlcGljOTIwMl kzxsQsZTHtgDFdF0Tdrdrv JJjrOZ6vOB5woCutxPDqsA MwQSUdOrAnt2rjx507uTKz g1qwVNWIoxguzPl5yJogM0 1lb9M7DdjmG99fsQBxWQww bGFpblxmczIwIEEuIEJPTk WoNSwZGhXsGl7WXTWIGXKH VcCOKAMYHO2gBXVQI8XGXY crmHHbARXtFT6oQw1XYIOZ GsXtVjqSDj5NV10BOYHMVE RSABMKD9SGOOoaSvYZVKPA TkMhUz9WUHAFWJCLRC1ZKS VPTVlFTElUSVNccGFyXHBh lvIVEcJIE83DXMKWACFLMG XDH6YcLXBLUD6ANKMGQWWL MLqnJCVKSRrtDE1GARYRLF bDMgldbJPzCJZfJV5cXSNA VIFcAH7HHGDSJv2OMVOfH9 QYZY6IEYUXJNWSToFnyPKb pQywvdDpJKfst6OcOWpuRV GpRJ1fdKffCTPlNT3rLYKy V9azfS5tzgr5CcNhASUdVh Y5APIagcD7Eqa0XTPtQKfm l4fng5PqFGEvOVh6wJhiNf HzPZPys4slpuIuQrDdLVIg TNVjPXNmrKMnP809s8ooe8 ugfbBkzBF8FPQjNKV4TNfe iuRpbwF7YVxlbJYfFaD2PD tccmVkMFxncmVlbjBcYmx1 LTWvV956MCW5jJxck7vfPN Q4ILCdBWXoCxQjOo0jpKEe M799VGOpAULTTYAclNh4OW EhyxCmqdIncRJAl299F539 j8xeDPWqchSimFxOqchlm5 gfB865NBMpyFLdjsAjWlEy JQVpgAXowPT3SPPoOV2ibv fcBFpsGHotLWIigbE4WFAu tRMwX1JvTCFcSG6spwqdJK E1IPhdVSWkEMS2UqEkQBNk r5Uwxmt6BbFgsg9fhh18QP I5j5BvcOpbPCP3GQN0XtVe Kc8grEMzAGDhVP3oGrCqnX QaDZOown02lLbfEFvvBDN0 SNNeppIhk1Pdl6uqZgIdyo NaV9grL7WoYEUsUOJcEABg ImUqzvFgi5Dkk1OhsXTgdL w2y1hwFJAwCTHoaWndy3ox IGV0BGGwpRJpJ6cqtP8fAK VoWR2fqniux4kiPVrwGTec FMGlvLJ7mwX0ZGJrbDFzX2 IgaA4yZCOtQItkNWIyiue4 YtQfVc4xdPRsdMksTZjtCw twYWdlXHBnbmNvbnRccGdu ZGVjXHBsYWluXHBsYWluXG YwXGZzMjRccWxcbGFuZzEw MzNcaGljaFxmMVxkYmNoXG ZlWForY7kcVnLnDqPtIiq2 ZJVmpCHdUWFbVac0FKHjqD IbNDIQnLkzuN8zUJXkuUtu dZ0plLB3RKTydsAvuODShD 4uUQNExE2gYdAwXBYhWhO5 LTcxNjNccGFyfX0= CPT Code(s) (test code x0kemEZpDEApdGT2QjQaHI = 3357) Ouo8scw2OpwSQonEHiLQwh jIEwyzSeed85yPI7gM96DC 2cCACmEjV0YFDjauB8Oxf7 IGGyPSNdiGEsQ313b8wbh7 nkmiIxtBE1lNtrLTSaILMz YWluXGZzMjAgODgzMDUgWD JoFIi0IwVzMTlbJDEqmf9= CLINICAL HISTORY (test a7dqyMWrAMJilZQ9VbBqWR code = 3356) Hzf2yhy5FuiOXggEQaNNpm oZPcjoDmkr77iTB3uS30QQ 1hIUBaZgT1ABBcroZ3Adi8 DEKbKYBohUNvX992w2vwr9 ykzmFxcJB1fHcgOIIpQLWn OMepKDQqPePhXOwjJpO3vZ TvcSqzAYFsk0WpdRPozBWj m325QEJvi74esJC3JGCel7 l8sQXtoJCjHZKlroDhSSku dXP3vpJjoNBmrZ0ygM4aZA XpqNggNaTfp65bkGBxl15s GLLhp6LgI8ojiOYlGWBcte Jnz7YwJc8smBhbhS0zqUDh xXRnBFHadYleZGOto4FpT8 UgXHBhcn0= SPECIMEN SOURCE (test t2fehFLqKXEvpOG9NxGbWD code = 3377) Bqw9sit3RvhWPjgXNpWDjc dOTuktVzwq67iYD8lB67YA 8gWYKcIjQ6XYRxoiI6Jcr1 GSFkVQGdjXKnB697t0efq4 kxsbTmgPA0lLguXOUiPGRx VUjaEWKfEjFdPE9uS05xyR S3sDPwqGKlKKStHpMyYIOr WF71SuCFLgSHl21aFDyeLD J9 GROSS DESCRIPTION (test m5zmaHNjJMHstZQ1WyBhQU code = 3366) Axa8mla8MsaQXabPOvPZdt yJKgbyLrkp34aNQ4pR25ZI 6mJAShWiQ6OVUqqqF4Xsw9 RYOgLKRusVXlN437a5cuz8 jmabGuqBX1mCwjJZUtVCOs JHqaMGEpOnKqWN0tDCmsZS UcZCNshDNaTTrgYDKpL8Xb bmZaQDjhTUTmU83aeZJzjh DfYIwhvHtwKu4wjEOuhL5n uOVtBKxmAXM6tHFvZOP0dh YsHNAsNS72EOnfIZ02kJTy YQTqOZSvEDOay26doAV3fI FxvNClHPFlMxJiKWXtLL17 Ht0oROStB11gb1fleTFxy6 KuVWQxXKgmBI05PVjvAQ9s EWGvKOVoRWitDU47UA2pLU Gzqi17gAi3TSU0lTFodJCs b5dgP4pwgIZcAa7xWUzfwA EerYGxMiWSnWLloOU0TMDz zA0eYXHwDGD8BANtzWcutD CkHTVqSAgzuEYlH8K1xY4w DnCfIUFrhfclQHJePj8sRE hlIHNwZWNpbWVuIGlzIHJl L5HnjwTuHWbbUFNkS72llF LllcMxVCdusMwfEo7gjYPh jS8duFBoLUvlNMC0hMCvOH I2tfOhHIVtKK30ZGftJN58 xPOeFITmNDGcUQXcZg2iDF UmNQg9CJQlxcHeq9PlLM6h KPIrKR90FKqrHKY2EERtT2 7vXvJxQ27zfzSlk9CgDj6s PRU3jFRbFEUxqWlmzDbful JzFJP0gFumQ4MrAXGya5Ju XHPsK8Kfe79xDWXabsBfc9 DotAz2rVKrKLxfQRUpOWQv aCOcIRNkE4VnH8itaMNgfQ eyrw5rXZNlY5YiTSSatf9= MICROSCOPIC DESCRIPTION x2kkoKTjZEZszBU5QhXtYD (test code = 3371) Gag5wwx9WwiJRqoFEmJQlx nSXzobApnj24iGL7qG00LZ 2eEIWqRzY3HTMzfbI7Dtx8 GARpMHGrvFKaW582o7aaa6 ikwpGpzJN2uIgaONZoFZEg TGrhGIFhQpEjVQ8KLfEDQB Bgd5XqHXJzOAufDJF9 Gross assessment was [facility] performed at ([facility], Department = 2777) of Pathology, [address] [place] [address], Technical component was [facility] performed at ([facility], = 2778) Department of Pathology, [address] [place] [address], Professional [address] [facility] was performed at ([facility], Department code = 2779) of Pathology, [address] [place] [address], [facility] [id number] 09:25:00 Test Item Value Reference Range Interpretation Comments Case Report (test code Surgical Pathology = 104) Report Case: [id number] Authorizing Provider: Laura Nguyen MD Collected: 09/26/2020 07:56 AM Ordering Location: [address] Med/Surg Received: 09/26/2020 08:55 AM Pathologist: Hilda Mack MD Specimens: A) - Soft Tissue, Debridement, LEFT FOOT BONE CLEAN MARGIN. B) - Bone, LEFT FOOT 5TH METATARSAL HEAD. DIAGNOSIS (test code = [id number] 3220) FuZzEwMzNcZnRuYmpcdWMx IHtccnRmMVxlcGljOTIwMl gfirMdJNMnjVSfI1Hzznnp RDhkHB7hNC4rqWudeKHsmR DuKNZxQeChd6ndh497fEEs o6krCECRoljdcNk5qOuuK0 9rg5Q2CxksT17aqXUyDEvu bGFpblxmczIwIEEuIEJPTk KvOKvHVeWdZv7ATCRDKRCX ZkQALQDXOG9oYKPIF2DFVX jviAFyJXFlUZ3wUu4NNGCI UbNdIuzAPz6TG41STXEILE TCLGLTO9XMURerLgRBELZS EpDpTl3XPMSBPXXSVH0CAA VPTVlFTElUSVNccGFyXHBh yuEKYuEXI89KCHCYVPYPXC NLK9UiYUFXHE6MYPLIXOPS XFbzGIYSZKwpXQ2DAVTMWL aETjtowIYiRMPnPE5nHVNX ROLyNB4HVOMQEo8FYCOqO9 KZIY7JZPPCXAXRQvOcyOGn xZrjseFqAAehy5BlGSzqII EsXS8rcAfvDSXnVC2fNZFk A6bssE1upjh0DiZkLPTbSl S7UQRdsbW0Ffx1SGBnKPtk x8lcg1FlTRTiWEs7tAmmRm BhWLXih0rxfyVbIhWoYYWr QTZjZODmzFEuA060f1cpa8 mrkeZoqYW0SQKrOPU1NYlx vrBcdjP9DNwshZGuHfW2OX tccmVkMFxncmVlbjBcYmx1 AKVeM373KTQ0uVvac7xyRV M7VEGtDCNgPsCaAe5wjQUk Y551XXHfJWUGRSXvqPk8AO IfcrWyroJvhYFKs623O353 l8rjWLWayhAmuZeNwcupy1 xqU993VEBifRTigpHaVnDd DFKtqNJllDL1VRVcRT6rlz xlCGhcOQttPGAlpsY2UCFf qMOtK6KhBJElGA1ztlasBI Y9PZypLBSeLMJ5RzEiWNCv a1Qzyae3CtGtqc2quq97DS X1w8JmrNqoMQI5MCO4MpSa Xz7tkMGoIGYmGY5yWzCctH VmXWVqun47sVufUMwwVWD0 ZCMutkYis1Slf0mqFgGyfm CcN3bkB3SrFLPiIBVrEUCd OyAacfPef9Oaw4KlvMEjbC q8i4aiBUEqCEAozAppx1pw HAP4MPPlwGAhK1ypoF0tDJ TpEC5hhxnta2hvGSlzPAwc LVBrwDC8cuO1AYPjpQEpX2 AizD7qOLYhNCjlWUYwodd1 XuPxTf5rwLXhbCbsIKfkMd twYWdlXHBnbmNvbnRccGdu ZGVjXHBsYWluXHBsYWluXG YwXGZzMjRccWxcbGFuZzEw MzNcaGljaFxmMVxkYmNoXG HaQGdoB1ppAcZeMuBrPwa6 XCTjuCDsAFHjNhs5JSKqtC YwWGLYiYnajS1aEPOrcVej mD0fvMW3OICbgnNfmLYCmB 6lSFMZwG2hTuXtLHHhYsH2 LTcxNjNccGFyfX0= CPT Code(s) (test code v5evsZNbKEWziKL5QpRdUW = 3357) Kvf0unv4JmlNIuvJGrDXkq sSCwhlPzil05uLV5mW92WZ 0zGQBzXeB7AQVxlsO3Dap2 NBPcDYWfiMOcL162l0oiy3 kmhmFjpCG1nSwuBUNkPGYn YWluXGZzMjAgODgzMDUgWD ZiZVd1SjSmTJwnAXDsyi4= CLINICAL HISTORY (test p5pdkHAqDWUtbGD0AvKyYX code = 3356) Yby5qxl8WlzSCzyCTaFKxv iPJgziTvnc10rEI8sS85JV 6eUFGgYwS1YIKeswL2Aok2 XWBrIODpsKOnD854z8dom0 rrqeNwwUU4fCllRNXfCOXk MEjiAXJaAqSrZQbnMxE9uK BsiKbrAALyh3FziNHriSUx m292RCHuy72pfRN2NOBnf3 x2gVZznCZyMIWjpaUgPNww wZX8rvJpsJWhfG0naW6oVS BrnBxnXlSwb63juKOvj95a YBQjq5OcX4rliNUxKPOhuq Npy1TpKd2fxWdxsQ4akOBj cICgMZQwoRmyBPKmf9FgM7 UgXHBhcn0= SPECIMEN SOURCE (test c0kpfKXpEBCttBM8KmXwLR code = 3377) Gek8lrb3DxjEDouKDyXDyg yDYiysVvxn69sWO5uB48CC 9nLPZfTlY7KTXwyuN5Uox7 HNKkMMFrxVSuH640y9ewr8 sfzgQuzYD7pQbzQXDdMERd TFebKAOrLeDqZR9xV18rzD B8gDDdwHZwWHTbFrYtUZMj OX30PbKPIrMRu87nNPdkYY J9 GROSS DESCRIPTION (test b3iikPZyELShzEX0NgMoBW code = 3366) Vid8dow0PipXLcnEXkXFap bQJcfpIeag80lDM7yT46YL 8xKQNjRmP5YDHlfxL1Rad4 TDWhEBFvqFFtB929q7fmu0 georUooLH8jJdyWXPxFIRa QEvaGEMbFfPeVM4gRNsgTD OxLERlxMOcEKcyLKGlZ1Pn iuSpOJbpYXHnI75wyKYuyc RnRIlawHbzPo1fqUBylE6c jWGsHAukYOP5bFUdJFI5pu QkAEPxNF11XEgsPU73dUPi AMFvYENiBKIml74fdRN7hO DarTTvKQGrUeWxMYMcIY45 El2iUBPyP80cp7isfBQnz2 UtVHRvVXuqHZ78SKbnLD6w VCNuYFNoNPcaKW90EM1aFR Usqe87lBj7FDK6wJEeyKGw j7xuE4kykNJiZk1oOUwzsE UxkWTpNhWTdCVguRQ0BLCi pE2uBFWoSOK4VBLxrDyhnQ FhQHNnVFfalOAqR3S6kT4c DaRiBHXooyrmKJDhNt9fCQ hlIHNwZWNpbWVuIGlzIHJl T3NfrbTtPYimCFPwP73gpM YgrtRfZOqmsHlbRo9kdRAg gQ3glPJzBHxyICU3uJOsJI O6rjQoGAMhQY26CVhxAZ42 pJSmFSQuAZShSDWvOt9pSH RfZDj6HJCkobFmo5UsTK7a TLNuMT38HJfxDNM7GNFsC7 5lNvHwM83zmbYup1TgAs3s YXW3wPStHGIlyYmtaEgyhn QoYHR5cSwhZ6RvEWEgy3Px REKaK9Ddj22cHIXzciCst7 XyaXm6bAYeAPotUPKpWNRk fVLtBQJoD2IoJ8jueUAxiF sgez4kXFIaQ9EjTVQnun0= MICROSCOPIC DESCRIPTION q9pntZBzIKWjmMP8DpQtMW (test code = 3371) Kfz4nkz3EomOAnaMZvDAmu pHNwtkXlln62gVK5tP17UQ 6yVTIlKuY2ITPretC3Mwq8 CIAvADIboBNoK393f8siv4 loozRsnJT1dLprITYoFVAe TRtbLVNeUhGmFN1ALaKKHW Gqx5BhNTKyWHhvAGK0 Gross assessment was [facility] performed at (test code Hospital, Department = 2777) of Pathology, [address] [place] [address], Technical component was [facility] performed at (test code [facility], = 2778) Department of Pathology, [address] [place] [address], Professional component . [facility] was performed at ([facility], Department code = 2779) of Pathology, [facility] [place] [address], [facility] Jwsh3422-30-06 09:25:00 Test Item Value Reference Range Interpretation Comments Case Report (test code Surgical Pathology = 104) Report Case: [id number] Authorizing Provider: Laura Nguyen MD Collected: 09/26/2020 07:56 AM Ordering Location: [address] Med/Surg Received: 09/26/2020 08:55 AM Pathologist: Hilda Mack MD Specimens: A) - Soft Tissue, Debridement, LEFT FOOT BONE CLEAN MARGIN. B) - Bone, LEFT FOOT 5TH METATARSAL HEAD. DIAGNOSIS (test code = [id number] 3220) FuZzEwMzNcZnRuYmpcdWMx IHtccnRmMVxlcGljOTIwMl rebqGoKYPbnCUtH2Ehsvkx XCyxDJ5nAY9kxWpwzWLejP CnVPOtXzDns5qif030nDWr d1jjDTUDywxxyJr7iBrpN0 5dd3D2GzvkK00mrUXaMZiv bGFpblxmczIwIEEuIEJPTk ThYXwILbAxKc8ONVPFKRQW GuKFUNKNCX5xEEZAT2EPZT xcmCWuEBVmAA5dCq5MVUBS HpWfWpjKSq5RD02OCVYTPY MYCFCTM0RLSZjvGsEVCLTE AuMaNj9KQQNAHRXRTO6AZV VPTVlFTElUSVNccGFyXHBh wzADZnAKN93VHAKGEEOFJP KHU0OxRUBPXP3OZGFWFOFF DXwvROCOBXsaFG0ZXAJNWO uEZsnydLDxRFWnTZ4zFRCO PTZzIL2AMVJURe3SIJDbO3 XGLK2FGAPEKVLOZwJaeBPo fJmkwdQyODglx5NdZMgcOI RhID3uuXqiOJDoZM9uABFm L3josU7cgqv8ThYqNMVzCp X5AMPpxfA1Qvc9XKAkCEjb m0cpj8VxJRHrFFw3bWvoLr GhYXVzd7akbyUzRsVhZPMv JRLmPQHnwSFaY427y4sqt0 awtwEkiCG6FWAjGHR5VEhb xlVfpjJ5BNelhCVjRzK5CW tccmVkMFxncmVlbjBcYmx1 YFJuF870QVL3rXcqb2wgKX Q5MJPrLQIvEfPwUd9jnEUa E560CNEzCQGMHOVeeCp3TH OhdxCphsXziTGWp941Z599 d4aeCGTjaeGlrTbHeucrv4 guJ673YVDweVZlfcCtRrUi KFCtkHZdxXT7VUGzNE7ary shJJzfLTgsKHVjvgV3NZIc pKKgQ2PzDHUtOB1emmknLY A0FHmaXJTxCKD4HsNwZPEx g5Fgvjq2SbLacv5vxd73DU G9a6SngDziBRL7ROC2MrLz Ui9fmNUmFDTaPQ9eYmNkwQ LgEGFblg29dFyqSEdqQUE4 RTGpoaWnr8Tzf9waEgKoyn EmB3fxG6GtGTPfBDFqLUDg YrKjuwHih5Qfj2FujFFulA h4j2jmIKNpHYPloLtfe6nl BTE4JQUapVNgN0vjuJ9gWZ XbBL4hhysgp8bmKJooJUqi YFRgqRP6iuM2IUTgjGLcG5 LgxH4oBYKhSEahQLMmats3 QjIdLt5leKMetExbBCihXm twYWdlXHBnbmNvbnRccGdu ZGVjXHBsYWluXHBsYWluXG YwXGZzMjRccWxcbGFuZzEw MzNcaGljaFxmMVxkYmNoXG IqGPxbR4cwLjEzCkJnVmx5 EVVolGZxUZDmKbx4XYGjwP TfKDOIuGbfdL1uVKHjuSel yV1ryEU8RAMqabXrtWRRtT 5yQPVUnY1kUzShORTtTfY6 LTcxNjNccGFyfX0= CPT Code(s) (test code b5hteTCwTXDjcGP8RvXaUX = 3357) Wii4vgj6NxqIIwpKDbDJaw mIRshcVyfy88qZO2pY78UO 6vQWHrMuN1YMAqbtQ3Pkq2 IOLoPTEieSDcJ282n6iyt0 okkwUrsPV5xOhbROOaFHTa YWluXGZzMjAgODgzMDUgWD IqRXp1HlLhGTmmSKXdwd2= CLINICAL HISTORY (test d2qdmJPpDENnxHJ5QvFgQE code = 3356) Ilo2rcv8ZdfZEyeEVzYKjw iSJymhEjbd18pUS3iD55DN 3gEJPlCkN1KQRgiyH8Yrc6 NHQlYJJwhVGkE108h2shf6 rrlwJynAP5dUjdSOWuWHVw ODxxTQKhMaJaKWbwDjZ5lZ MgnQuoWXUte6SfqPEqyCYf a013MNSpe99pgGW6JGDnx7 g5uJAawNSiAATrtxRpMXbq eIO3ebEkfZXqyT7veU2pXJ NpmGbbWnRla14qpQVbv10w KLWmt7NwL0wjbVAlCZXpww Qhn8WyEc9ysTjvdS2joRCu gIAbQDQixLckKVIaf1DnE1 UgXHBhcn0= SPECIMEN SOURCE (test l8vriFCfVKPanPK4CvRrBR code = 3377) Lrd8wgl9TegNXlnZAbZDra iXHsnqGoxx50pBV2iP27BY 3nKURlRcV5FSKfplK7Hme0 RGQnMVBbjRUsC510g5fvf7 xoseLnkKF2nUakSLLyFIRe ATvvJYYsGaOfNI4dO01dzJ F3wPAuwEXsBBIiIxIfMXLz RX23QbGPPiXXy30vDWowAF J9 GROSS DESCRIPTION (test i8fdfSYkSGNjqSV2CtCzOF code = 3366) Dsy4idn4ClrYIkqCSuVPlc nJJlyyUuxr49bAE7tY60PX 2oGMVzLlT2ASCctbZ5Smd2 MFIlZKUqoNMpK245l0ltr8 wpgrLymHF8tChdZLBbSMPy YDmxUHYbHwQgZU7dJYqmBY GeYICfjPWkTDjtBHDzB0Kx pzNqUPjlKWEbE92bkVIsps YcNQxpjRblZa1cyXBrtM5q kOCgAHheWMR6gRLeRXD3tu GhMLGzWQ80TLlaJI26hOMi UHVpQHSgVZBos46ojLJ4vL IewPGdALYiMtPzHDVzHO12 Rh0iWKVnF93so0ciaJKvq2 MiZNKlQFupFA27RSqsYY3l EXSmOQOaNSdyHT57NU3jYX Tneg23nIf7TKX4jMGxhHXs w5fcA7wxlCYiNm3oFPeuvU OaaMPyZxNLnEFsmLE3IOUt aU1tLTZoJSF9LMKqgKhncW UiPCIlBWxzzAOlN5Q7tF4w SpVrCMFtvdnpDYDsYc8lFC hlIHNwZWNpbWVuIGlzIHJl K9HzpuJcIVcdMLJcW07lgC NnrrYmIRrjpTxnQm6xfMKn oM3ykOWzTAxuCXG2fQRwAL F4ghNbTUMfHN47XOrlBA36 kJQoCEIaZNExZRBkQa4pAJ ZbNTf0HMIhnbOxf5MqID7f RKDjMB21SMakXEO5HHLpX0 0aSzEpC46fhdVsj3RpRe5t CAC3fTCxPSUexEllmRzmbn KpFCO8yTsiO6YdBPWaw1Lf ERBqF1Nqo26iPVJeiuMzr3 BryGx1hAEhMOtrLFKiDKBr yNDhFIBxE0SiU3kvmQLunG dpwa0wPFBkM7DjALDrkk9= MICROSCOPIC DESCRIPTION u9cfrWOnXLRyrSG7AfBtKR (test code = 3371) Dgy4fog9LmvUPfwCUuHHmu aVHuhvUmvo18mGP1dJ10II 2hLIMfRuI8CUXzonG8Xgv2 AWZyXNIseRJeY666w8ivy3 yukyJmpWN9wWstGXPoBTZk MSfkNVKbNqNiSD5YFdFNQY Tvz7IcVCRsVFrzQIY5 Gross assessment was [facility] performed at (test code Hospital, Department = 2777) of Pathology, [address] [place] [address], Technical component was [facility] performed at (test code [facility], = 2778) Department of Pathology, [address] [place] [id number], Professional component [facility] was performed at ([facility], Department code = 2779) of Pathology, [address] [place] [address], [facility] [id number] 09:25:00 Test Item Value Reference Range Interpretation Comments Case Report (test code Surgical Pathology = 104) Report Case: [id number] Authorizing Provider: Laura Nguyen MD Collected: 09/26/2020 07:56 AM Ordering Location: [address] Med/Surg Received: 09/26/2020 08:55 AM Pathologist: Hilda Mack MD Specimens: A) - Soft Tissue, Debridement, LEFT FOOT BONE CLEAN MARGIN. B) - Bone, LEFT FOOT 5TH METATARSAL HEAD. DIAGNOSIS (test code = [id number] 3220) FuZzEwMzNcZnRuYmpcdWMx IHtccnRmMVxlcGljOTIwMl lwrxOfHJYfhEDcF4Shmwuh HUbbHF5aJU0lvCbnuJEzkY UkNYEnHnCyn9krl534qGZu p0oeCCZUyoeeyWc9bRtlE3 0wm4G9YlgyU78tbWUkUYor bGFpblxmczIwIEEuIEJPTk UsJPrNRmFaJm0YRDGDVXHG UlBOBLDDZX8bIKUBP4ENLF ynfRLbNBDaQN8dNq7RZYMM ErYaDxzNLl2OX07PYCEKWX OSHAPHE8VAVHhuLyTGGOZL MlEjMa9PDLBYTLAYOD5MUB VPTVlFTElUSVNccGFyXHBh gsFVXnLLW86XTDZEJZEYRS EVN7RsKIQOEK1ODYZWCSQF TZflBWQUKBsfOT3TEXMUIP tXQgxxpFZnEOUmCM2mUCMQ YUThNI6EMLKEAj7MVQSwK4 CXQM5TBCRFCXKYJrOprYTh gIonorIrLTkeu4YzNAobDN LhFN7wuHexRWHnDR9yOTNr H3grsD6nmvw8GjRiNHGsKn D1YNAihlT1Kiu1JFRyKInf t8yja1RxTQVoXTg5lGypRk HuQZWco1nmheWxZlDpIIUo ATLfYJWcoEBrB361r9poo1 eehdBniYU2KBOnUPR6ASpr ehSgtqO4FYhmfFStDiL1QU tccmVkMFxncmVlbjBcYmx1 FTRiZ320THO5zSakn0gmLL R0AFNmWQZhBsFuOt9wvJGp W300ZGWfMPIUNGLokRo4PS MtwrEwefZglZPLb392X367 q5vuWPYiyfFxjHwWpkijy4 sgY878ZHNnaBLwiwQnNhQp RVQysBInpSI3IADuSV9bml dcEVqhXCkqEZQipzS3TPVc uKPyG7NqRXGfPS0yuepxBV P1KSlxSVExLHF8VaOrBGRx d8Znxxm6VuEdss9nxl76HP I7y2AodWjlODX1VBY8LxPy Jq3kbTJpOTXxBI8qIdBrjJ PmXZLmtx88fHvuONbmVKB8 JBYtjsWuk9Hrn4baEmPyas WrP2szV0QkPNPxZGRjUJWg JyJgopSfy9Mzg4GngUSjmF n1a3cpVSFiFXKxdLegb0rx TDU2ZJYywQLjQ8ucxN1cLH BkSV7qcpvsv8zkILzbNLtj CDWuwMF8gsZ0MFEfnBQxG5 TnvO4oHDRlMWwqNUBjzcb0 ZaFcJr2suHRjzLttVQzoCv twYWdlXHBnbmNvbnRccGdu ZGVjXHBsYWluXHBsYWluXG YwXGZzMjRccWxcbGFuZzEw MzNcaGljaFxmMVxkYmNoXG VuKGjmG7klMfAgLoFaCrx5 FBMfjTEeJEXzXvw0ZYEzpO HjKUXWcCvexT4kAKFamCsu jP3rbXJ9YDDsjdMlqHCPeU 9lUPSLnI3kIlAwEVPxGiH2 LTcxNjNccGFyfX0= CPT Code(s) (test code t5obtQPmVORoyXG8QkQrXB = 3357) Gee4sas2EcyUApaCCxYDas yGPnveMgkg82oKC3jA21BX 6sEMMsMiE5QAFyksX6Aoc6 VCTmJWQrcDDkG570l9uzt7 pukhZtiDM8fBtbAOJuMJRc YWluXGZzMjAgODgzMDUgWD XiDBm7DhIdFChrUSBgej5= CLINICAL HISTORY (test u1xwpHJqDQKujBG8NcSwQG code = 3356) Pqw2pwc5VaxEByhASnPZzd xNMosxNjfw86tAS3rI26VP 1dXRWdXoA8DGQokpY3Sym7 JSDyVILzjZYsK295q9wdu0 qgmqEdhMY2oTmbPSTqOJGp ZGlyRKKrJcHvIWrjWoR9lW AhnUppAAZlq1MwtOFsvYLb c979GYRpk25ibDD9FFRaw1 p9kUHusXIoHYLxoiXiCLmd hJU3lgDrrJBfcL6cjV6uRV KymBdlVzJjy09quJZeh79u MDGse4OiP7feoFWmMYQvbr Ens6OwTk5ixEdanI3dkJLc aWXvBSIojJbjWZKyl3UzF6 UgXHBhcn0= SPECIMEN SOURCE (test l1rfgDSlRPFpqTW3UnWyRA code = 3377) Jdt4jhr4RxfVKqlMDtBHls zQCuxiBucu72eSB9tT99SW 5vIDToDrQ3QMJhkoF2Fty1 ZAKmZPWipDYzI946u5ssp4 bcetXirJZ5sRayZMKoFHVf NKitDFWpKyFfAD6rC85juE C5kUHumWEhTFKsZeKvPLVo LF94NuMJFnIGz27xOQbdTZ J9 GROSS DESCRIPTION (test v0ahjVFaMADetAP1ZyPkYJ code = 3366) Iwv4sev7XfxHAcrNKqCNiu iLWepsKbkk41nHI2nX09YK 5fGHFtHuY9TQXypkU2Xnh2 NOJzAJGehHXdR812m8pho8 gzteKznKV4pLtoMYDhQQKc BDhzMTBcRsTiKZ8kIBooMS FtUXHwgBYfNOwvFJAgB7Ru onBdDKwbJMEfT48wwSJpig VuGQrfaPyhJc7vkICzrK3f mENgBUygYYA7jZLsSML0sh VlXIKnDI11JNlxWN27qCZj ECGcXOBdFAApf70stQF8lP GvfBLtUFWjMyRhAFJcYF60 Qm7aNDAgC79vc0zxjGGcl8 OwGBMfRUamWE52TIaxKO7u DQXqWMDnMNqpUD25QW5gRZ Xjph84aOj8FEN0qKDodNRk z5woW1giqEObIl3aZQsnwO HoaQEnQdQHkFDxuIS6YEPi wQ4xSVVyIBH3LKGkrDbfoW PnYRYmMLnnqTZhR3C0fV1b WnEmKWXvmwsaXEKzSq6mHC hlIHNwZWNpbWVuIGlzIHJl L1AwakJgZEqtBAPiB17pbY JsrfIdQUjbfMbmQv1bjLCr rA7xfLXpLFwuKMC3jOHfHL N3hxNdNMKkWZ05UAquVS51 cGCjFAKeOTHgOTQqAl7pGO PpFYy5NBNiqhTub2DlFJ4s STPqLF23AIupSWW4ZZYhB3 3kJbLvT32cqhAys7TvUy8q PIG4rIStQGXkkKdzaJilhp PxXET8aRquW9XaRPOgh3Dy VJWlO1Jwu30eHWOzasQjf5 OnnMe6iJWnPItrECNuSQFi pFLzQYKyH2RtD6bmcIAxbN fdbd0jHYJdR1UwEXSmqk7= MICROSCOPIC DESCRIPTION k7dqmFFiHFIrvSA0UtObZP (test code = 3371) Rmm7aiz0XnaLTgfKRdPWev rWLkzwUill55gPT1vG81WE 9bAHJwHtJ3JEEieqV5Qbz4 NXSjAJYvhXNuZ740m2jmw1 dskiHhvQY4wQhmVIAlUSOl ZXygZXHwByKgEA3LNeNFRA Pwb2XrFIElAJlhCBU3 Gross assessment was [facility] performed at (test code [facility], Department = 2777) of Pathology, [address] [place] [address], Technical component was [facility] performed at (test [facility], = 2778) Department of Pathology, [address] [place] [address], [address] [facility] was performed at ([facility], Department code = 2779) Pathology, [address] [place] [address], [id number] 09:25:00 Test Item Value Reference Range Interpretation Comments Case Report (test code Surgical Pathology = 104) Report Case: [id number] Authorizing Provider: Laura Nguyen MD Collected: 09/26/2020 07:56 AM Ordering Location: [address] Med/Surg Received: 09/26/2020 08:55 AM Pathologist: Hilda Mack MD Specimens: A) - Soft Tissue, Debridement, LEFT FOOT BONE CLEAN MARGIN. B) - Bone, LEFT FOOT 5TH METATARSAL HEAD. DIAGNOSIS (test code = [id number] 3220) FuZzEwMzNcZnRuYmpcdWMx IHtccnRmMVxlcGljOTIwMl pseeQuDSAoaYCtF8Nyvgdo KUjlNX7nVB0ioXgzyJFbaW QaNLPaFvAnl2ssm523wAGd f7ajRIBVjtdbkSb9yCfzK1 3cv7A5OytiT16nrMDsTZvh bGFpblxmczIwIEEuIEJPTk OiWEmVQuGkYo4LVNPXFJVR ErLNIHLIUX2mJGZVL5CPVK uklPEuSWCnZO3uAd6AXYHE OmJwNbgGEq5YP05OSVAVJI INZAKSJ6YBQTpqIyEZVUQW SaFyYt8HMFBJOMEBVA9XMM VPTVlFTElUSVNccGFyXHBh bbOVJlNFR95SLWQGEQKGBO MIU1RqQXKCCN5XYYKJSRQZ LYsjXIRMDJuxVP5DNYSYNI dLFlddpFXrFLUqJX9eRWMV ZRDiDF0MNONOBh2SXQZoQ5 WWVJ8NDXPNTUIYVfFgjCQd dJzxtyXaIBmac7GtEIjsNQ MqKA3fcJvdNZApVE3eYIBh Y4ervW3vgqd7BdYeRSAcFb S2YOQhanR7Uog1ESVnNZzg v3zng7IdDEAmRJg7gFhrUh UyJCLgz2nejdGxFmIgPEMo RCPeXSYphECyS947e7wjm6 xgjfBniBM4XWIiQQA9OXbj obKhswH4DLgkuCWsIgB7IR tccmVkMFxncmVlbjBcYmx1 QJQaY731OZI5aWxcx3ghGF S2KAWdYENnTaUrYp6hiVWu D338ZGOcORTSUBKupJj7KR PppoZozcXtkBGLw356T925 e5tfADIbzbXdbZaRosltt6 rnB034MVWzuOSstbJbBiGc YWJjgVIgcBQ6GJFbHT9hqv neEGlvPTepOAFhtnG9LELe iLTkR1TwAPJpYV0kaqczFM M4YDfkWFKvWTQ0SqSkVFQw m3Ybdbm1WeWcqx2fpp88GR O0m3ZziChfJTM0HCE0OoBn We1nqKLgCQLuND8xQgHmhI TyBNPlzx28sNhrMAuiJWL4 MYUvmkRml7Cyr0fcHwPwev IdO8wtN7VlJHMeZTXoBMOc XtDmisWwf8Plf0AysYXlnC v3d5uwBNMwMMZkmUtwp7le WYM0GVXnrJLhX7qgyM1jLM MpMG2cnrxbo7ntNEmoLHdh IRAqeXZ9nfO8FOMpuMUlR8 EfzB5kWNHzQHgmUULiboa6 UdWdOi8dkRKtmCzlEHukIc twYWdlXHBnbmNvbnRccGdu ZGVjXHBsYWluXHBsYWluXG YwXGZzMjRccWxcbGFuZzEw MzNcaGljaFxmMVxkYmNoXG GzXNnvZ6agEtJtDoHbNvb6 HDLvqWKnIPTqGsw6PSJroD EvIGKAfClfzY3zERTgrMgi vE4zeHZ5VQTcceXgwVYShK 1gYHBMiR4mIqTaOSUrRbT8 LTcxNjNccGFyfX0= CPT Code(s) (test code u0nihAUhUKWtrLW8XwVfNT = 3357) Dts9ajb4LtwULfyIOyIDle jZAnxpKsdw50qSJ4rJ74NQ 6oNMBfKrN7CBLcpgP3Jvv2 IBAcHLVepHBqT076y9gap7 gggfYifYA8tZfbAXRdSXRk YWluXGZzMjAgODgzMDUgWD JaYPx5EtKiSXwoNYNkvu6= CLINICAL HISTORY (test b5uuaOYwPWVinTN5BiLiIK code = 3356) Smx5sdk1ZevCCzdIYlWAhq aODzkaWjtc18eMP3cW83AB 9yPCNwFxX7AVQknxH4Eqk2 BRXnKHYpzSKgP452o5ueu9 exjjXuqDM1hQijTMDrWBRd KWxwGPRoMbFkLVwmUtM7xU YmuMvyTQMhk7GhkEObyBUu q442TISzt98gvSL2YLEhp3 y3aQRpaURkRZGxuhOgYXqk dLC0zgGgrQRhxB9raL4jWV NuiTvfTjFmo74amCWlu37u CMNdd5FfN6ibwIFgDKWfnh Xko9SjCl9naHjjnM5wcZFc fBGrSOZcnJgqEDYef1WgA4 UgXHBhcn0= SPECIMEN SOURCE (test o2sayNNdFOXzaRW9JoDgUT code = 3377) Sje7dzq5DpuSPvxPWxANge xARahjMwdl47bRU9zR94RJ 3gIYSdZyE5COFxozN6Oxs5 DLZcLJXgqXTtT811h4lii0 ybmyBjdJF6uWkvRGCyFCSc TYunRPXgNfNdII7vD27akI U4lSXisBRxITQnQhCmSXLs OK76EwVYMjIQi31rCEbyYJ J9 GROSS DESCRIPTION (test i6etpFHbITOxnWZ5AvJnIV code = 3366) Tag8nrv6CtkUPtwCWcKSmx nMTfhqKtrg15hDF7rS87BX 7fDVIjXzS0HZEwtzZ3Fvv4 WBZdGWHinTUdE888p6ecs3 fugoRkkIZ2qGtdTDPePPNl VTfxRYIrXuQjJT1gFLauEA VtNBVjuVHgLFzrMYThT3Pf kkLjXOixXQGrS24nvRPdfn BxGPhtyVagHk9ntEOonQ6l bILgJBzcKTF3fDXfLAY2ct UkTQBkIQ62MEbxBB46hGRb JBMiRYSdLSNti02oqWO7mX YutJAwVHYgCnMsUAIbNL21 Dt8wZLKxH12ms5nawVHmr6 JqHQIiTZldEC09TEnjPD8w IRQlMAYfHWiuKT34VO8oSL Lqmm56gGr3CRT2kEHauUDx j5qsT4baxSDiBi0kZIjftK XyqOMkYoPYgLMihHN3NUJo xR7qBQRiNSP3YIYswNegyT BvVDDbYArxzZThX9X8uN8q KcJwXNTphzizSPXrZo7pYJ hlIHNwZWNpbWVuIGlzIHJl L1CkoqNdHVasVFYwY59beI SgmfCpAPdnqInrYn5onMXy zJ1wqJYjFTjkQRA4eDDcOW A8tvSgPDZiWX35HUbuVD28 nHLtULUeCIKzSMTpVu1fLA DpHZd0RIRdoiYuz3HkOA5t HUZjLO46TNpgINR8PQUjW1 9yClFkH82qeaJeb2XpJa8i TMC7pWCkBMUkbUludVbpgt BwNLF0oOxvE8DvNREtr6Ba ILAnB1Gea80sPFZnazQlo7 VofDw9iUGiOKnhVQRcAXVw aKSxOKJdT4WuH0sxzYAhaZ blfv9eDNOhS3XfCPIpos5= MICROSCOPIC DESCRIPTION v1meqBBwBMUzzRF3PiAiSK (test code = 3371) Eoq6nhh2EahWSwfFIzHKkb hESqvhQfwp66yGH2fA13PO 4wKSHcSjM7WFFvatU7Xyx2 EILeNPInmEVxB088z3zdm9 zblmFstAC9qOmtPLQuPOCv TFvgAYMiWqWzGF5CSpKVGE [id number] Gross assessment was [facility] [place] performed at (test [facility], Department = 2777) of Pathology, [address] [place] [address], Technical component was [facility] performed at ([facility], = 2778) Department of Pathology, [address] [place] [address], Professional component [facility] [place] was performed at ([facility], Department code = 2779) of Pathology, [address] [place] [address], [facility] USCTissue Apid1022-24-12 09:25:00 Test Item Value Reference Range Interpretation Comments Case Report (test code Surgical Pathology = 104) Report Case: [id number] Authorizing Provider: Laura Nguyen MD Collected: 09/26/2020 07:56 AM Ordering Location: [address] Med/Surg Received: 09/26/2020 08:55 AM Pathologist: Hilda Mack MD Specimens: A) - Soft Tissue, Debridement, LEFT FOOT BONE CLEAN MARGIN. B) - Bone, LEFT FOOT 5TH METATARSAL HEAD. DIAGNOSIS (test code = n5cwjTAgTZKyw8nvJBWpkE 3220) FuZzEwMzNcZnRuYmpcdWMx IHtccnRmMVxlcGljOTIwMl leshUnZHRyoEUkD1Ssrqdg MFmgCM2jYG7faQcvlYUhdN HoJWUdOzNaa7hqu861fNXe q0dwVJSNqcqhlPo2aJmoE4 5wp5Y0YhtuC55foCFpJRbj bGFpblxmczIwIEEuIEJPTk UjBLaYYhJnHo9JQLKQNCYD SbUAEJBAYA0eNPCLS9PQPV uasNKxKTEcXW3sLv4GACNN UaVcAerEHn6CY32PNKLUGL AUZNXAB5XIKOfnTtDLZKIJ IiLvCz9KKMAPCFLUFS6TVW VPTVlFTElUSVNccGFyXHBh hqGMWrWPY06ARIVROIQGON ONK0DwGDNNHM7FXQLMGGVQ WZddBUQBSEncRJ2CXGJDVD nYMgozjBThGEMqDG0tIDTS BDUgWS8CNSGBHo1VIVUfR0 IVFH5KBHZUTYOFSsVniAUy oXoicxIrRYevb3DzANffAC LiBF7ocEwmYAMsLR2cBUTg Q3cliC0bwpf0QpAhCNYgNh A8THBmzaR6Atn4JXIcWNwa f0fpt1YkPAVvGCz3dBazYx SoRKDvz2femaUgObPbWXRn YTJaRVBloYTiL379o1zdv0 qdrbPewUH0OLNoYIN0OKsg caLkcuO6EWphaJTyNgZ7GR tccmVkMFxncmVlbjBcYmx1 GRVtL896UST3sWfab6otTB K8GUGjDNUzQwFaAb4cqDOf E755CJJaBPAFUUOpxJc5NJ UtvvZhmeCoeDGDv353F447 c5qxFFNhxhGcjNmHpgqdk6 yzR263ENJtuILypzTrFmJw XBQzlCIagQP6FYBgBE8pqp ybVTqbBJtbVPAihbR9AQXq jIBaV9OtXUIxYQ3nvmueDL G0UFrlMTWuKOZ3TtMsAGWi x1Kxpnl1IoLuna8yli73XQ I8l0KtnMebOCJ5WGN4FvRk Ou5uqIXlDCJwMW9oSzWumA NhMZUqeb59kWbvRUymIBO6 VBZiutLyt0Pty7oeKpUscs VjV3uuL1QmVFRiPORkQMXv IuBdvfIvo0Frx5MwfVXwxL d0f6hcYFUjEZJmeYnjo3yk QMU4GXCoaRWsG0fkeS1jQP HnGH3uivvul5rsIFirTNgj YWZkeHK6fgF4EBDsbNQoN8 JwsL4ePYMvKVzeAEZpqqr5 IjTwOy3nvSImnNzsCDuaKi twYWdlXHBnbmNvbnRccGdu ZGVjXHBsYWluXHBsYWluXG YwXGZzMjRccWxcbGFuZzEw MzNcaGljaFxmMVxkYmNoXG GvHGlbJ2qbEiGoCcCnTyr9 POGikDDhUMZcKyj8UNSskC VvVXNJkVhxxN0oFGSwuPea oH1hrMN4TDJvvvDoyLVUlS 7vJDLWlE2gQaKvEABaUyP9 LTcxNjNccGFyfX0= CPT Code(s) (test code b7bahBEyHLRsxEJ8KaKpTO = 3357) Fam5rur5GmdEFkaKTkUFux jGLeoyPmnp24dTS9jU17DV 1pEVKwVvF3GBQmgjT2Cct6 QCPzOXSqbUCnF083n0lfn5 iyqiUoxPZ8xHwjMQIlKNWm YWluXGZzMjAgODgzMDUgWD GtCJo9MaRkSOtvKJTgna4= CLINICAL HISTORY (test r2xeqHFfVYRmhMM8UbYeBM code = 3356) Yna8wwj8WgcSIrrKQvCKcd fCSwaqKymv10fTB2pT88FR 4xNSCjQbC5TQVbqxC0Yed5 WOVpNEYpiQNcG173y4xys4 bvfgGcpNR2oViqXKUrZKBb XUxtJTQmCaXkGCbrRiR3tU LjbYehBGFlu4BtuKCdtIPa h113WODpu38ccKY3YVLaj1 m6mDVolEHnXTSninRkWBya yWD9hxOjbXNwzJ7joQ3eOV NqsEcpTlBvb67hkSLvl99r PVWpa1EhV4uixPXxMBBxel Nwk7WbSk7lgNnydA7fxIOl fDGrXQGbrHkoYFLfu2BgN4 UgXHBhcn0= SPECIMEN SOURCE (test j0iruCDgDWHwxXU7UxDoCS code = 3377) Xta8jpr8IfpEYiiMQpZJqq wPJmsbOpka15iAH8gB96AE 7yZHRuGdL7OEBnqoW5Hig7 EVKvGLKrqWHmZ927n8zbb4 svltBctWT5bJcpJLImZBSc HScbJHShZbJqGI1aD93isX M3eQJqlPToJPChDqNzXFWb OG88UpBOMxHYy05zSIayZB J9 GROSS DESCRIPTION (test r3vgrNYsGEWxsPD2UjTqQG code = 3366) Kiy5ugj3KrgFDaoWAfHEcw iGRlwcEarr62hJS4iU36UO 4aXAOuJaL7IHBeheN8Agi9 VDMvOEFcyMMsQ080i5syl5 hhrkAxhXA8wZarIBMeTNNa CWdeKOCyBdHtBS3wMSbyNQ NmZKOebYJzMXgmEPSoA9Sy zqSeCDtwGSUjT45dtAPayz YnOOvwrNigEm5meGGotA5m kQLoEIpcRBU0pEVyPUD5mr BvXVAqXO86HYgzYJ69uRCu VCJdMVCbZZPql90qyGE9hY MysUDbGHYlWpVsXRUjIB30 Az8hGVDaP59cw7xkjTKpu7 ZqTNPwRNomEI57VOmmHO9c UBSsDPNzAZqnWC84MS5qZS Xrnv85fZy8MJX5bPIbpAIl l3khA9nimPQxZy1xTRgqpE BiyWGmItFGzVTfkOO9KMNj nQ9uDXOmIZJ1HZUddDxgaH SbBMZhZIpgaUYfY9J2sC9u TcGsDHNfpoceWRJrTr7kCK hlIHNwZWNpbWVuIGlzIHJl Z8AxthMwASlkBBCeN67ucB KqerEkVYexsIpjFp3kzYHx yJ6veODuXJeqHEN8rLJtDR I9kxPqQGSjGI61SXjgTP31 sYPzZDHbDMLmOQSyIz7tWI SaZQn0YVNxyhJvq7QoLN5a QXQlZG99LHzdMDN8QLFhR7 9bUvJdK84gwiKvq2OzNd8k UFD6yNEjUYRomOxdaOukxy VoHZM3lCpzG9AkVDZps5Pl KLMiA0Dfj75cIQFmrgYlq6 ArsCq0zNCxHShnSSRqTNFk pYOgRZElF7RmA4tfmRMmvZ hmdv7uUWIwM9BoNMJyiy3= MICROSCOPIC DESCRIPTION b0ireENaTOXnuKK3FrMpJR (test code = 3371) Lhm3goj9OrcEBwrIFmXMap bGDlqmUayt83jDZ7tZ42NO 1hZWAgMnV4TIYequS7Ear0 EFYxUKWkfZMjX438p8uea6 qelqZvxQU7jPieIKZaCANg GOabAFZfZeYkQY3TOsWHQQ Qwq5GrQBPuVUavOFI0 [address] [facility] [place] performed at (test code [facility], Department = 2777) of Pathology, [address] [place] [address], Technical component was [facility] performed at (test code [facility], = 2771) Department of Pathology, [address] [place] [address] [place] [address], Professional component [facility] [place] was performed at ([facility], Department code = 2779) of Pathology, [address] [facility], [place] [address], [facility] [id number] 09:25:00 Test Item Value Reference Range Interpretation Comments Case Report (test code Surgical Pathology = 104) Report Case: [id number] Authorizing Provider: Laura Nguyen MD Collected: 09/26/2020 07:56 AM Ordering Location: [address] Med/Surg Received: 09/26/2020 08:55 AM Pathologist: Hilda Mack MD Specimens: A) - Soft Tissue, Debridement, LEFT FOOT BONE CLEAN MARGIN. B) - Bone, LEFT FOOT 5TH METATARSAL HEAD. DIAGNOSIS (test code = l8sevGPaDZYcr0bhTGAmuN 3220) FuZzEwMzNcZnRuYmpcdWMx IHtccnRmMVxlcGljOTIwMl nqwkYwPENouORlG6Ltapjo AChzBZ3hPH2psLnisFSrkI PyXBLmUoItp1hxo536oKCu b2gkEOZXvvfhxKv3vOfoA9 8gr6Q6GcikF85gsYGpLYqq bGFpblxmczIwIEEuIEJPTk BoNPyMSiVfXq3PWXVCPNAA MlENAZBEKG9qVMQJU7XQRD xbqKEoIOPkNZ3lUo0IIIJN StSeAlsIIh4RK51ZYRZGVJ VIQJRJI8PHFSclCiPNPWCI EsMeKi0XXWVTMKLQZA4WJS VPTVlFTElUSVNccGFyXHBh ldYPQnKSU40YFVGKZLIHTG TDR6CsMSLWWS1VUXMHGRJW EWwdNQMWQTqqQD8AUIAHYS rYCthvcBBsBPHaZB1yVIOX VSFbDM8HJHNHGb9KXCDwV1 HVHM2SWHABMINGEoVtoWQe cRzwidDnCWjxf8SbSPdzCT SxVL3dnCffNKCcDN5iJQXr C7hbbT0lefk3UlDzAODpIg F7RRDpefV8Zjz9TRSgMJyf w9vix5XzPVIjAZy0mYthFw AbSTChm0pbnpHbEfSuXRSq NIWqYFVsoRQzC707e3jmr5 ajbqQqhFX8KLOeWVP1SPvp pdHeypD9MFrsyZQzIgW8EM tccmVkMFxncmVlbjBcYmx1 XYSlB061TZH4mEmla3ikVG X8EBGbBZJlOiIdGy0yzZOf V066HFPuHZISDJEtlMg1SW NjjpYwkjPxbFPMf392H309 a5yyWGUdacIjrOoUtdiap1 pjW070XFUydFIrjyXbMwLp KRZhrIGuqKN5TGCjBU7eqv gjPUnwQBcnVLOpbnM8ASJu tYMnH7UdYFGdVD6uxezqXI O0UDlfGXUuYNS6LxVtOTHh g2Zqqkh9UwFpwm6tmd69PF M1x7NckYtrAUX9XWY6HfQw Du9ejQRhBTVaIS1zGhUvaG EuNBBygi25bLpbOFleKTV9 IJCyjoHxm1Vnh7pdFnXxfs EnO1ezM8SeGSLkVDSfSKDc DiCixlFxm0Cdc5FnrRPzlG h9t3inEOJwDIOdqEgqm0nj VJV9DQXulTWxA4ozsG0vQN VrYO4wjpztv4mrJLiwXBuq MSIjiAC6ziD6OLPsmPTuQ2 WykG7gXTDsRNvtJSBtwnw7 EcRhWr2ujNEpaZmtPAfcVo twYWdlXHBnbmNvbnRccGdu ZGVjXHBsYWluXHBsYWluXG YwXGZzMjRccWxcbGFuZzEw MzNcaGljaFxmMVxkYmNoXG NsAHyrG4abAfTxMzPzIal5 MXHesLMrOTKtCbr7YQPjdD QyVZZVqRqoqX3vLSQoeVeg vX4gpOL4CGEqhzXznPMCiV 5uWHTKaU6zDqQeBRQaUtG8 LTcxNjNccGFyfX0= CPT Code(s) (test code n3imzGHfBPXiuLZ1LoFjKQ = 3357) One7cdw6IdaWAxxOCmZUid hOSsaiAbvz80qGE4hA66BV 3aFROfRlF2PNRiutT4Kfn3 LDEaIVZyiFOmM113a4oau4 kirxXgzDO3nYzhMUNgQRBp YWluXGZzMjAgODgzMDUgWD WqUJy6ZdBsYXefZWSoww5= CLINICAL HISTORY (test u1mouJMzYPKugCA2DqDtIK code = 3356) Giu9msg7FajDWhrDYzGSwu hSSklhMvev62iBJ7oH32IT 3qCOBiEkK6CQIsdqN0Ryp9 EJErSMIneMMdW520y0fcg3 iozeFmyAZ0uOswUKQnZIYl CRdqRMLrHyQpNWgeMoI0vS MpjYhfDSAzx4PfdWRnjRRo j164ZAQaa11bqOS1UGUlq2 e5pWSxnDMeYXTdfeVtEWag aLS7nlNjeQMgeV4hmF2cFJ TxqPsxQrIkw06jcFCdg83m VYVes0WyO8jgyOMuINRsyj Vxr3KtBd1oeQzitN0sqNXx aAIpZMQwzWjwBCYvx5RcE5 UgXHBhcn0= SPECIMEN SOURCE (test e2rspEGpGCMnpQO0VjGkDO code = 3377) Gml4yts8YwmKHtvYZqGUnl qACjyvDqbk32oUM4dF53VU 5vOFMjMlG4KTVmirZ3Tqv4 BOEzIKThnOBmS112j2ewn6 miruDlkJZ6rEwpWLPfWFDu JJvlAWGqFePnDL0kP87odN U7sYShsHVbEPSjInPuJVXj HW30LqUKTkEHy59kXJkuVN J9 GROSS DESCRIPTION (test q5adrMWjSJKsiLE7SnKjMD code = 3366) Pyv5xse3UefOVzaRBtAUhd uPTtwsScjs87qVG5qY61UI 0tSEUuBvB5XFBetxW4Izs5 EQDqBGAduBRwH301m4ovx1 qqawFzvEL2vPfrTWOgYVZb SNbkRAJuToYtMC4bOTaxCS UfAGInsJNqNWufEVNfS1Nb vmWsKYyhDBExR12vqBRbsx LmCJggjTpnEa5roHJxhE9y dCUdJJnnRBX6tMLoSKW7py VpYBLcUT21ZXojDG01kXRq ITKlHNQqXPJal40aiLR1fE PdbNTqBTGzKkQjPFBdKS74 Fc6yRTLdS10ly7cghGIgs8 FsFYUqBIooHJ79GGyxHE9d FTHqOWPvNThbTJ76SR3aVY Vozp05hNa5ZOS8sIVnrDGi r4pyM1qgiZXlIu6mSXqwxP GsiDHgSsGJcJAtbVV9DYLy vQ5oPLMhIFJ9YSJlkRwxgD DaIPPzQPufbPHwB3E9dS2q HrQeSQBxpkanTNXvSe0bFD hlIHNwZWNpbWVuIGlzIHJl X7XlbvKvXHvdJMMeE75snX DusdKmORhxnKfiCm2nsXSp xF3qfRTlCGodGQD4nURhZR D9iwZmIASlAW70BKtzIW68 eRVuJJZfVRAeEXIuHf3uNT EoDWy8KMHafaFns8ZsLN0c CCXyBW97UHazXIA8OEBbU3 7fUgEsL56wqwYkk1GiYc1z KVZ5mBAnLBSpzVhsbMhtkh MtOSV6gTdfE5UvRUUjk1So QJClJ5Msl33iGYJeczObn8 UvhWf3aUDtWYarJQAaOEWa mKTgIVQeT3ZfG4rfvVFgaO ulpm3gTMMfB5MfTKOwym5= MICROSCOPIC DESCRIPTION m6kqhMWuIMLiiTB7GhZtTK (test code = 3371) Unh9uuo1GseIDrjTNuWLgv aWNiuxThvw21fUZ5rM23MO 5tIYQpYvI3VIZfwcD9Bkr6 WGSxVQPiiNLbO812c2bsy9 swtrCojUU9hNcxWJNdKGMz NYyxRATuXqVuGU8PWjVUGQ Nko1XaUYGaHXlhGFR0 Gross assessment was [facility] [place] performed at (test code [facility], Department = 2777) of Pathology, [address] [place] [address], Technical component was [facility] performed at ([facility], = 2778) Department of Pathology, [address] [place] [address], Professional component . [place] [place] was performed at ([facility], Department code = 2779) of Pathology, [address] [place] [address], [facility] [id number] 09:25:00Surgical Pathology Report Case: [id number] Authorizing Provider: Laura Nguyen MD Collected: 09/26/2020 07:56 AM Ordering Location: [address] Med/Surg Received: 09/26/2020 08:55 AM Pathologist: Hilda Mack MD Specimens: A) - Soft Tissue, Debridement, LEFT FOOT BONE CLEAN MARGIN. B) -Bone, LEFT FOOT 5TH METATARSAL HEAD. A. BONE, LEFT FOOT CLEAN MARGIN, BIOPSY: - BONE AND FIBROCONNECTIVE TISSUE, NEGATIVE FOR ACUTE OSTEOMYELITISB. BONE, LEFT FOOT 5TH METATARSAL HEAD, AMPUTATION: - ACUTE AND CHRONIC OSTEOMYELITIS Signing Pathologist Direct Phone Line: [phone] signed by Hilda Mack MD on 10/01/2020 at 9:25 [id number] X2, [id number] G3Kfeuoqzv ulcer of left foot associated with diabetes [...] submitted in B1 after decalcification. [place]/Shyanne-B. Performed. [facility], Department of Pathology, [address] [place] [address], [facility], Department of Pathology, [address] [place] [address], [facility], [facility], [address] [place], [place] [address], RKW-Glucose [id number] 12:31:00 Test Item Value Reference Range Interpretation Comments POC-Glucose Meter (test 178 mg/dL 70-110 H : No tified RN/MD: code = 1538) TESTED AT [place] [address]: Housekeeping/Laundry Supervisor/Techni cornelia ID = [id number] for Gerryxochilt Salvatore raul Lab Interpretation (test Abnormal code = 42289-6) [facility] [id number] 12:31:00 Test Item Value Reference Range Interpretation Comments POC-Glucose Meter (test 178 mg/dL 70-110 H : No tified RN/MD: code = 1538) TESTED AT [place] [address] 478: Housekeeping/Laundry Supervisor/Techni cornelia ID = [id number] for Bassxochilt, Zofiaare t Lab Interpretation (test Abnormal code = 38778-0) [facility]ucose [id number] 12:31:00 Test Item Value Reference Range Interpretation Comments POC-Glucose Meter (test 178 mg/dL 70-110 H : No tified RN/MD: code = 1538) TESTED AT [place] 383438: Housekeeping/Laundry Supervisor/Techni cornelia ID = [id number] for Bassey, Zofiaare t Lab Interpretation (test Abnormal code = 10929-2) [facility] [id number] 12:31:00 Test Item Value Reference Range Interpretation Comments POC-Glucose Meter (test 178 mg/dL 70-110 H : No tified RN/MD: code = 1538) TESTED AT [place] [address]3438: Housekeeping/Laundry Supervisor/Techni cornelia ID = [id number] for Bassey, Margare t Lab Interpretation (test Abnormal code = 83722-0) [facility] [id number] 12:31:00 Test Item Value Reference Range Interpretation Comments POC-Glucose Meter (test 178 mg/dL 70-110 H : No tified RN/MD: code = 1538) TESTED AT [place] [address]: Housekeeping/Laundry Supervisor/Techni cornelia ID = [id number] for Bassey, Margare t Lab Interpretation (test Abnormal code = 81892-5) [facility] [id number] 12:31:00 Test Item Value Reference Range Interpretation Comments POC-Glucose Meter (test 178 mg/dL 70-110 H : No tified RN/MD: code = 1538) TESTED AT [place] [address] 478: Housekeeping/Laundry Supervisor/Techni cornelia ID = [id number] for Bassey, Margare t Lab Interpretation (test Abnormal code = 75634-8) [facility] [id number] 12:31:00 Test Item Value Reference Range Interpretation Comments POC-Glucose Meter (test 178 mg/dL 70-110 H : No tified RN/MD: code = 1538) TESTED AT [facility] [address] [facility] 77 478: Housekeeping/Laundry Supervisor/Techni cornelia ID = [id number] for Salvatore Ramírez Lab Interpretation (test Abnormal code = 29095-0) [facility]-GLUCOSE [id number] 12:31:00 Test Item Value Reference Range Interpretation Comments POC-GLUCOSE METER 178 mg/dL 70-110 H : Notified RN/MD: TESTED (BEAKER) (test code AT [facility] [address] [facility] = 1538) [facility] [address]: Housekeeping/Laundry Supervisor/Techni cornelia ID = [id number] for Cony Osborne Basic Metabolic [id number] 06:00:00 Test Item Value Reference Range Interpretation Comments Sodium (test code = 138 meq/L 648-070 3942-2) Potassium (test code 4.3 meq/L 3.6-5.5 = 2823-3) Chloride (test code 101 meq/L 98-106 = 2075-0) CO2 (test code = 31 meq/L 20-29 H 2028-9) BUN (test code = 54 mg/dL 10-26 H 3094-0) Creatinine (test 2.16 mg/dL 0.5-1.2 H code = 2160-0) Glucose (test code = 177 mg/dL 70-110 H 2345-7) Calcium (test code = 8.9 mg/dL 8.5-10.5 31050-8) EGFR (test code = 33 mL/min/1[place]73 [place] [address]-7) m NOT ACCURATE CREATININE CLEARANCE IN PREDICTING GLOMERULAR FILTRATION RATE . ESTIMATED GFR I S NOT APPLICABLE FOR DIALYSIS PATIENTS. ISSA (test code = Housekeeping/Laundry Supervisor ID - ISSA) JBERNOperator ID - JBERNOperator ID - JBERNOperator ID - JBERNOperator ID - JBERNOperator ID - JBERNOperator ID - JBERNOperator ID - JBERNOperator ID - JBERNOperator ID - JBERN Lab Interpretation Abnormal (test code = 59450-5) [facility] Metabolic [id number] 06:00:00 Test Item Value Reference Range Interpretation Comments Sodium (test code = 138 meq/L 521-087 5730-2) Potassium (test code 4.3 meq/L 3.6-5.5 = 2823-3) Chloride (test code 101 meq/L 98-106 = 2075-0) CO2 (test code = 31 meq/L 20-29 H 2027-) BUN (test code = 54 mg/dL 10-26 H 3094-0) Creatinine (test 2.16 mg/dL 0.5-1.2 H code = 2160-0) Glucose (test code = 177 mg/dL 70-110 H 2345-7) Calcium (test code = 8.9 mg/dL 8.5-10.5 25307-0) EGFR (test code = 33 mL/min/1[place] [address]-5) m NOT ACCURATE CREATININE CLEARANCE IN PREDICTING GLOMERULAR FILTRATION RATE . ESTIMATED GFR I S NOT APPLICABLE FOR DIALYSIS PATIENTS. ISSA (test code = Housekeeping/Laundry Supervisor ID - ISSA) JBERNOperator ID - JBERNOperator ID - JBERNOperator ID - JBERNOperator ID - JBERNOperator ID - JBERNOperator ID - JBERNOperator ID - JBERNOperator ID - JBERNOperator ID - JBERN Lab Interpretation Abnormal (test code = 15437-2) [facility] Metabolic [id number] 06:00:00 Test Item Value Reference Range Interpretation Comments Sodium (test code = 138 meq/L 908-304 8681-2) Potassium (test code 4.3 meq/L 3.6-5.5 = 2823-3) Chloride (test code 101 meq/L 98-106 = 2075-0) CO2 (test code = 31 meq/L 20-29 H 2027-9) BUN (test code = 54 mg/dL 10-26 H 3094-0) Creatinine (test 2.16 mg/dL 0.5-1.2 H code = 2160-0) Glucose (test code = 177 mg/dL 70-110 H 2345-7) Calcium (test code = 8.9 mg/dL 8.5-10.5 42273-0) EGFR (test code = 33 mL/min/1.[place] [address]-0) m NOT ACCURATE CREATININE CLEARANCE IN PREDICTING GLOMERULAR FILTRATION RATE . ESTIMATED GFR I S NOT APPLICABLE FOR DIALYSIS PATIENTS. ISSA (test code = Housekeeping/Laundry Supervisor ID - ISSA) JBERNOperator ID - JBERNOperator ID - JBERNOperator ID - JBERNOperator ID - JBERNOperator ID - JBERNOperator ID - JBERNOperator ID - JBERNOperator ID - JBERNOperator ID - JBERN Lab Interpretation Abnormal (test code = 00513-6) [facility] Metabolic [id number] 06:00:00 Test Item Value Reference Range Interpretation Comments Sodium (test code = 138 meq/L 394-567 3018-2) Potassium (test code 4.3 meq/L 3.6-5.5 = 2823-3) Chloride (test code 101 meq/L 98-106 = 2075-0) CO2 (test code = 31 meq/L 20-29 H 2028-9) BUN (test code = 54 mg/dL 10-26 H 3094-0) Creatinine (test 2.16 mg/dL 0.5-1.2 H code = 2160-0) Glucose (test code = 177 mg/dL 70-110 H 2345-7) Calcium (test code = 8.9 mg/dL 8.5-10.5 93147-6) EGFR (test code = 33 mL/min/1.[place] [address]-6) m NOT ACCURATE CREATININE CLEARANCE IN PREDICTING GLOMERULAR FILTRATION RATE . ESTIMATED GFR I S NOT APPLICABLE FOR DIALYSIS PATIENTS. ISSA (test code = Housekeeping/Laundry Supervisor ID - ISSA) JBERNOperator ID - JBERNOperator ID - JBERNOperator ID - JBERNOperator ID - JBERNOperator ID - JBERNOperator ID - JBERNOperator ID - JBERNOperator ID - JBERNOperator ID - JBERN Lab Interpretation Abnormal (test code = 42989-4) [facility] Metabolic [id number] 06:00:00 Test Item Value Reference Range Interpretation Comments Sodium (test code = 138 meq/L 241-048 2989-2) Potassium (test code 4.3 meq/L 3.6-5.5 = 2823-3) Chloride (test code 101 meq/L 98-106 = 2075-0) CO2 (test code = 31 meq/L 20-29 H 2027-) BUN (test code = 54 mg/dL 10-26 H 3094-0) Creatinine (test 2.16 mg/dL 0.50-1.20 H code = 2160-0) Glucose (test code = 177 mg/dL 70-110 H 2345-7) Calcium (test code = 8.9 mg/dL 8.5-10.5 32551-6) EGFR (test code = 33 mL/min/1.73 [place] [address]-8) m NOT ACCURATE CREATININE CLEARANCE IN PREDICTING GLOMERULAR FILTRATION RATE . ESTIMATED GFR I S NOT APPLICABLE FOR DIALYSIS PATIENTS. ISSA (test code = Housekeeping/Laundry Supervisor ID - ISSA) JBERNOperator ID - JBERNOperator ID - JBERNOperator ID - JBERNOperator ID - JBERNOperator ID - JBERNOperator ID - JBERNOperator ID - JBERNOperator ID - JBERNOperator ID - JBERN Lab Interpretation Abnormal (test code = 30758-4) [facility] Met[facility] [id number] 06:00:00 Test Item Value Reference Range Interpretation Comments Sodium (test code = 138 meq/L 040-829 3643-2) Potassium (test code 4.3 meq/L 3.6-5.5 = 2823-3) Chloride (test code 101 meq/L 98-106 = 2075-0) CO2 (test code = 31 meq/L 20-29 H 2027-9) BUN (test code = 54 mg/dL 10-26 H 3094-0) Creatinine (test 2.16 mg/dL 0.50-1.20 H code = 2160-0) Glucose (test code = 177 mg/dL 70-110 H 2345-7) Calcium (test code = 8.9 mg/dL 8.5-10.5 02286-9) EGFR (test code = 33 mL/min/1.73 [place] [address]-0) m NOT ACCURATE CREATININE CLEARANCE IN PREDICTING GLOMERULAR FILTRATION RATE . ESTIMATED GFR I S NOT APPLICABLE FOR DIALYSIS PATIENTS. ISSA (test code = Housekeeping/Laundry Supervisor ID - ISSA) JBERNOperator ID - JBERNOperator ID - JBERNOperator ID - JBERNOperator ID - JBERNOperator ID - JBERNOperator ID - JBERNOperator ID - JBERNOperator ID - JBERNOperator ID - JBERN Lab Interpretation Abnormal (test code = 85656-0) [facility] Metabolic [id number] 06:00:00 Test Item Value Reference Range Interpretation Comments Sodium (test code = 138 meq/L 110-142 4863-2) Potassium (test code 4.3 meq/L 3.6-5.5 = 2823-3) Chloride (test code 101 meq/L 98-106 = 2075-0) CO2 (test code = 31 meq/L 20-29 H 2028-9) BUN (test code = 54 mg/dL 10-26 H 3094-0) Creatinine (test 2.16 mg/dL 0.50-1.20 H code = 2160-0) Glucose (test code = 177 mg/dL 70-110 H 2345-7) Calcium (test code = 8.9 mg/dL 8.5-10.5 27111-7) EGFR (test code = 33 mL/min/1.[place] [address]-4) m NOT ACCURATE CREATININE CLEARANCE IN PREDICTING GLOMERULAR FILTRATION RATE . ESTIMATED GFR I S NOT APPLICABLE FOR DIALYSIS PATIENTS. ISSA (test code = Housekeeping/Laundry Supervisor ID - ISSA) JBERNOperator ID - JBERNOperator ID - JBERNOperator ID - JBERNOperator ID - JBERNOperator ID - JBERNOperator ID - JBERNOperator ID - JBERNOperator ID - JBERNOperator ID - JBERN Lab Interpretation Abnormal (test code = 71810-1) [facility] METABOLIC [id number] 06:00:00 Test Item Value Reference Range Interpretation [...] S NOT APPLICABLE FOR DIALYSIS PATIEN TS. Housekeeping/Laundry Supervisor ID - JBERNOperator ID - JBERNOperator ID - JBERNOperator ID - JBERNOperator ID - JBERNOperator ID - JBERNOperator ID - JBERNOperator ID - JBERNOperator ID - JBERNOperator ID - [id number] 05:42:00 Test Item Value Reference Range Interpretation Comments Magnesium (test code = 2.2 mg/dL 1.5-3 20813-8) ISSA (test code = ISSA) Housekeeping/Laundry Supervisor ID - JBERNOperator ID - JBERNOperator ID - JBERNOperator ID - JBERN Lab Interpretation Normal (test code = 27061-7) [facility] Test Item Value Reference Range Interpretation Comments Magnesium (test code = 2.2 mg/dL 1.5-3 84016-1) ISSA (test code = ISSA) Housekeeping/Laundry Supervisor ID - JBERNOperator ID - JBERNOperator ID - JBERNOperator ID - JBERN Lab Interpretation Normal (test code = 32930-3) [facility] 05:42:00 Test Item Value Reference Range Interpretation Comments Magnesium (test code = 2.2 mg/dL 1.5-3 69424-1) ISSA (test code = ISSA) Housekeeping/Laundry Supervisor ID - JBERNOperator ID - JBERNOperator ID - JBERNOperator ID - JBERN Lab Interpretation Normal (test code = 81582-3) [facility]2021-07-04 05:42:00 Test Item Value Reference Range Interpretation Comments Magnesium (test code = 2.2 mg/dL 1.5-3 71704-4) ISSA (test code = ISSA) Housekeeping/Laundry Supervisor ID - JBERNOperator ID - JBERNOperator ID - JBERNOperator ID - JBERN Lab Interpretation Normal (test code = 75912-8) [facility]2021-07-04 05:42:00 Test Item Value Reference Range Interpretation Comments Magnesium (test code = 2.2 mg/dL 1.5-3.0 91650-8) ISSA (test code = ISSA) Housekeeping/Laundry Supervisor ID - JBERNOperator ID - JBERNOperator ID - JBERNOperator ID - JBERN Lab Interpretation Normal (test code = 61863-6) [facility]2021-07-04 05:42:00 Test Item Value Reference Range Interpretation Comments Magnesium (test code = 2.2 mg/dL 1.5-3.0 65980-4) ISSA (test code = ISSA) Housekeeping/Laundry Supervisor ID - JBERNOperator ID - JBERNOperator ID - JBERNOperator ID - JBERN Lab Interpretation Normal (test code = 93724-5) [facility]2021-07-04 05:42:00 Test Item Value Reference Range Interpretation Comments Magnesium (test code = 2.2 mg/dL 1.5-3.0 51933-0) ISSA (test code = ISSA) Housekeeping/Laundry Supervisor ID - JBERNOperator ID - JBERNOperator ID - JBERNOperator ID - JBERN Lab Interpretation Normal (test code = 43469-6) [facility]2021-07-04 05:42:00 Test Item Value Reference Range Interpretation Comments MAGNESIUM (BEAKER) (test code = 2.2 mg/dL 1.5-3.0 627) Housekeeping/Laundry Supervisor ID - JBERNOperator ID - JBERNOperator ID - JBERNOperator ID - JBERNCBC with platelet count + automated [id number] 05:17:00 Test Item Value Reference Range Interpretation Comments WBC (test code = 6690-2) 7.6 See_Comment [A utomated message] The system RECESS. generated this result transmitted ref erence range: 4.0 - 10 .0 K/L. The refe rence range was not u sed to interpret this result as normal/abnor mal. RBC (test code = 789-8) 3.54 See_Comment L [Au tomated message] The system RECESS. generated this result transmitted ref erence range: 4.20 - 5 .80 M/L. The refe rence range was not u sed to interpret this result as normal/abnor mal. MCHC (test code = 786-4) 31.0 See_Comment L [A utomated message] The system RECESS. generated this result transmitted ref erence range: [...] See_Comment [Aut omated message] 777-3) The system RECESS. generated this result transmitted ref erence range: 150 - 43 0 K/CU MM. The referen ce range was not u sed to interpret this result as normal/abnor mal. MPV (test code = 11.1 fL 6-11.5 83629-4) nRBC (test code = 413) 0 See_Comment [Aut omated message] The system RECESS. generated this result transmitted ref erence range: [...] See_Comment [Aut omated message] 670) The system RECESS. generated this result transmitted ref erence range: 1.80 - 8 .00 K/L. The refe rence range was not u sed to interpret this result as normal/abnor mal. # Lymphs (test code = 0.97 See_Comment L [Auto mated message] 414) The system RECESS. generated this result transmitted ref erence range: 1.48 - 4 .50 K/L. The refe rence range was not u sed to interpret this result as normal/abnor mal. # Monos (test code = 0.74 See_Comment [Autom ated message] 415) The system RECESS. generated this result transmitted ref erence range: 0.00 - 1 .30 K/L. The refe rence range was not u sed to interpret this result as normal/abnor mal. # Eos (test code = 416) 0.21 See_Comment [Au tomated message] The system RECESS. generated this result transmitted ref erence range: 0.00 - 0 .50 K/L. The refe rence range was not u sed to interpret this result as normal/abnor mal. # Baso (test code = 417) 0.05 See_Comment [A utomated message] The system RECESS. generated this result transmitted ref erence range: 0.00 - 0 .20 K/L. The refe rence range was not u sed to interpret this result as normal/abnor mal. Immature 1 % 0-0 H Granulocytes-Relative (test code = 2801) Lab Interpretation (test Abnormal code = 68552-6) [facility] with platelet count + automated [id number] 05:17:00 Test Item Value Reference Range Interpretation Comments WBC (test code = 6690-2) 7.6 See_Comment [A utomated message] The system RECESS. generated this result transmitted ref erence range: 4.0 - 10 .0 K/L. The refe rence range was not u sed to interpret this result as normal/abnor mal. RBC (test code = 789-8) 3.54 See_Comment L [Au tomated message] The system RECESS. generated this result transmitted ref erence range: 4.20 - 5 .80 M/L. The refe rence range was not u sed to interpret this result as normal/abnor mal. MCHC (test code = 786-4) 31.0 See_Comment L [A utomated message] The system RECESS. generated this result transmitted ref erence range: [...] See_Comment [Aut omated message] 777-3) The system RECESS. generated this result transmitted ref erence range: 150 - 43 0 K/CU MM. The referen ce range was not u sed to interpret this result as normal/abnor mal. MPV (test code = 11.1 fL 6-11.5 04994-5) nRBC (test code = 413) 0 See_Comment [Aut omated message] The system RECESS. generated this result transmitted ref erence range: [...] See_Comment [Aut omated message] 670) The system RECESS. generated this result transmitted ref erence range: 1.80 - 8 .00 K/L. The refe rence range was not u sed to interpret this result as normal/abnor mal. # Lymphs (test code = 0.97 See_Comment L [Auto mated message] 414) The system RECESS. generated this result transmitted ref erence range: 1.48 - 4 .50 K/L. The refe rence range was not u sed to interpret this result as normal/abnor mal. # Monos (test code = 0.74 See_Comment [Autom ated message] 415) The system RECESS. generated this result transmitted ref erence range: 0.00 - 1 .30 K/L. The refe rence range was not u sed to interpret this result as normal/abnor mal. # Eos (test code = 416) 0.21 See_Comment [Au tomated message] The system RECESS. generated this result transmitted ref erence range: 0.00 - 0 .50 K/L. The refe rence range was not u sed to interpret this result as normal/abnor mal. # Baso (test code = 417) 0.05 See_Comment [A utomated message] The system RECESS. generated this result transmitted ref erence range: 0.00 - 0 .20 K/L. The refe rence range was not u sed to interpret this result as normal/abnor mal. Immature 1 % 0-0 H Granulocytes-Relative (test code = 2801) Lab Interpretation (test Abnormal code = 16515-2) [facility] with platelet count + automated [id number] 05:17:00 Test Item Value Reference Range Interpretation Comments WBC (test code = 6690-2) 7.6 See_Comment [A utomated message] The system RECESS. generated this result transmitted ref erence range: 4.0 - 10 .0 K/L. The refe rence range was not u sed to interpret this result as normal/abnor mal. RBC (test code = 789-8) 3.54 See_Comment L [Au tomated message] The system RECESS. generated this result transmitted ref erence range: 4.20 - 5 .80 M/L. The refe rence range was not u sed to interpret this result as normal/abnor mal. MCHC (test code = 786-4) 31.0 See_Comment L [A utomated message] The system RECESS. generated this result transmitted ref erence range: [...] See_Comment [Aut omated message] 777-3) The system RECESS. generated this result transmitted ref erence range: 150 - 43 0 K/CU MM. The referen ce range was not u sed to interpret this result as normal/abnor mal. MPV (test code = 11.1 fL 6-11.5 38724-8) nRBC (test code = 413) 0 See_Comment [Aut omated message] The system RECESS. generated this result transmitted ref erence range: [...] See_Comment [Aut omated message] 670) The system RECESS. generated this result transmitted ref erence range: 1.80 - 8 .00 K/L. The refe rence range was not u sed to interpret this result as normal/abnor mal. # Lymphs (test code = 0.97 See_Comment L [Auto mated message] 414) The system RECESS. generated this result transmitted ref erence range: 1.48 - 4 .50 K/L. The refe rence range was not u sed to interpret this result as normal/abnor mal. # Monos (test code = 0.74 See_Comment [Autom ated message] 415) The system RECESS. generated this result transmitted ref erence range: 0.00 - 1 .30 K/L. The refe rence range was not u sed to interpret this result as normal/abnor mal. # Eos (test code = 416) 0.21 See_Comment [Au tomated message] The system RECESS. generated this result transmitted ref erence range: 0.00 - 0 .50 K/L. The refe rence range was not u sed to interpret this result as normal/abnor mal. # Baso (test code = 417) 0.05 See_Comment [A utomated message] The system RECESS. generated this result transmitted ref erence range: 0.00 - 0 .20 K/L. The refe rence range was not u sed to interpret this result as normal/abnor mal. Immature 1 % 0-0 H Granulocytes-Relative (test code = 2801) Lab Interpretation (test Abnormal code = 78181-4) [facility] with platelet count + automated [id number] 05:17:00 Test Item Value Reference Range Interpretation Comments WBC (test code = 6690-2) 7.6 See_Comment [A utomated message] The system RECESS. generated this result transmitted ref erence range: 4.0 - 10 .0 K/L. The refe rence range was not u sed to interpret this result as normal/abnor mal. RBC (test code = 789-8) 3.54 See_Comment L [Au tomated message] The system RECESS. generated this result transmitted ref erence range: 4.20 - 5 .80 M/L. The refe rence range was not u sed to interpret this result as normal/abnor mal. MCHC (test code = 786-4) 31.0 See_Comment L [A utomated message] The system RECESS. generated this result transmitted ref erence range: [...] code = 230 See_Comment [Aut omated message] 647-3) The system RECESS. generated this result transmitted ref erence range: 150 - 43 0 K/CU MM. The referen ce range was not u sed to interpret this result as normal/abnor mal. MPV (test code = 11.1 fL 6-11.5 91131-9) nRBC (test code = 413) 0 See_Comment [Aut omated message] The system RECESS. generated this result transmitted ref erence range: [...] See_Comment [Aut omated message] 670) The system RECESS. generated this result transmitted ref erence range: 1.80 - 8 .00 K/L. The refe rence range was not u sed to interpret this result as normal/abnor mal. # Lymphs (test code = 0.97 See_Comment L [Auto mated message] 414) The system RECESS. generated this result transmitted ref erence range: 1.48 - 4 .50 K/L. The refe rence range was not u sed to interpret this result as normal/abnor mal. # Monos (test code = 0.74 See_Comment [Autom ated message] 415) The system RECESS. generated this result transmitted ref erence range: 0.00 - 1 .30 K/L. The refe rence range was not u sed to interpret this result as normal/abnor mal. # Eos (test code = 416) 0.21 See_Comment [Au tomated message] The system RECESS. generated this result transmitted ref erence range: 0.00 - 0 .50 K/L. The refe rence range was not u sed to interpret this result as normal/abnor mal. # Baso (test code = 417) 0.05 See_Comment [A utomated message] The system RECESS. generated this result transmitted ref erence range: 0.00 - 0 .20 K/L. The refe rence range was not u sed to interpret this result as normal/abnor mal. Immature 1 % 0-0 H Granulocytes-Relative (test code = 2801) Lab Interpretation (test Abnormal code = 69474-2) [facility] with platelet count + automated [id number] 05:17:00 Test Item Value Reference Range Interpretation Comments WBC (test code = 6690-2) 7.6 See_Comment [A utomated message] The system RECESS. generated this result transmitted ref erence range: 4.0 - 10 .0 K/L. The refe rence range was not u sed to interpret this result as normal/abnor mal. RBC (test code = 789-8) 3.54 See_Comment L [Au tomated message] The system RECESS. generated this result transmitted ref erence range: 4.20 - 5 .80 M/L. The refe rence range was not u sed to interpret this result as normal/abnor mal. MCHC (test code = 786-4) 31.0 See_Comment L [A utomated message] The system RECESS. generated this result transmitted ref erence range: [...] See_Comment [Aut omated message] 777-3) The system RECESS. generated this result transmitted ref erence range: 150 - 43 0 K/CU MM. The referen ce range was not u sed to interpret this result as normal/abnor mal. MPV (test code = 11.1 fL 6.0-11.5 16786-1) nRBC (test code = 413) 0 See_Comment [Aut omated message] The system RECESS. generated this result transmitted ref erence range: [...] See_Comment [Aut omated message] 670) The system RECESS. generated this result transmitted ref erence range: 1.80 - 8 .00 K/L. The refe rence range was not u sed to interpret this result as normal/abnor mal. # Lymphs (test code = 0.97 See_Comment L [Auto mated message] 414) The system RECESS. generated this result transmitted ref erence range: 1.48 - 4 .50 K/L. The refe rence range was not u sed to interpret this result as normal/abnor mal. # Monos (test code = 0.74 See_Comment [Autom ated message] 415) The system RECESS. generated this result transmitted ref erence range: 0.00 - 1 .30 K/L. The refe rence range was not u sed to interpret this result as normal/abnor mal. # Eos (test code = 416) 0.21 See_Comment [Au tomated message] The system RECESS. generated this result transmitted ref erence range: 0.00 - 0 .50 K/L. The refe rence range was not u sed to interpret this result as normal/abnor mal. # Baso (test code = 417) 0.05 See_Comment [A utomated message] The system RECESS. generated this result transmitted ref erence range: 0.00 - 0 .20 K/L. The refe rence range was not u sed to interpret this result as normal/abnor mal. Immature 1 % 0-0 H Granulocytes-Relative (test code = 2801) Lab Interpretation (test Abnormal code = 71393-8) [facility] with platelet count + automated [id number] 05:17:00 Test Item Value Reference Range Interpretation Comments WBC (test code = 6690-2) 7.6 See_Comment [A utomated message] The system RECESS. generated this result transmitted ref erence range: 4.0 - 10 .0 K/L. The refe rence range was not u sed to interpret this result as normal/abnor mal. RBC (test code = 789-8) 3.54 See_Comment L [Au tomated message] The system RECESS. generated this result transmitted ref erence range: 4.20 - 5 .80 M/L. The refe rence range was not u sed to interpret this result as normal/abnor mal. MCHC (test code = 786-4) 31.0 See_Comment L [A utomated message] The system RECESS. generated this result transmitted ref erence range: [...] See_Comment [Aut omated message] 777-3) The system RECESS. generated this result transmitted ref erence range: 150 - 43 0 K/CU MM. The referen ce range was not u sed to interpret this result as normal/abnor mal. MPV (test code = 11.1 fL 6.0-11.5 52768-8) nRBC (test code = 413) 0 See_Comment [Aut omated message] The system RECESS. generated this result transmitted ref erence range: [...] See_Comment [Aut omated message] 670) The system RECESS. generated this result transmitted ref erence range: 1.80 - 8 .00 K/L. The refe rence range was not u sed to interpret this result as normal/abnor mal. # Lymphs (test code = 0.97 See_Comment L [Auto mated message] 414) The system RECESS. generated this result transmitted ref erence range: 1.48 - 4 .50 K/L. The refe rence range was not u sed to interpret this result as normal/abnor mal. # Monos (test code = 0.74 See_Comment [Autom ated message] 415) The system RECESS. generated this result transmitted ref erence range: 0.00 - 1 .30 K/L. The refe rence range was not u sed to interpret this result as normal/abnor mal. # Eos (test code = 416) 0.21 See_Comment [Au tomated message] The system RECESS. generated this result transmitted ref erence range: 0.00 - 0 .50 K/L. The refe rence range was not u sed to interpret this result as normal/abnor mal. # Baso (test code = 417) 0.05 See_Comment [A utomated message] The system RECESS. generated this result transmitted ref erence range: 0.00 - 0 .20 K/L. The refe rence range was not u sed to interpret this result as normal/abnor mal. Immature 1 % 0-0 H Granulocytes-Relative (test code = 2801) Lab Interpretation (test Abnormal code = 13400-6) [facility] with platelet count + automated [id number] 05:17:00 Test Item Value Reference Range Interpretation Comments WBC (test code = 6690-2) 7.6 See_Comment [A utomated message] The system RECESS. generated this result transmitted ref erence range: 4.0 - 10 .0 K/L. The refe rence range was not u sed to interpret this result as normal/abnor mal. RBC (test code = 789-8) 3.54 See_Comment L [Au tomated message] The system RECESS. generated this result transmitted ref erence range: 4.20 - 5 .80 M/L. The refe rence range was not u sed to interpret this result as normal/abnor mal. MCHC (test code = 786-4) 31.0 See_Comment L [A utomated message] The system RECESS. generated this result transmitted ref erence range: [...] See_Comment [Aut omated message] 777-3) The system RECESS. generated this result transmitted ref erence range: 150 - 43 0 K/CU MM. The referen ce range was not u sed to interpret this result as normal/abnor mal. MPV (test code = 11.1 fL 6.0-11.5 15741-0) nRBC (test code = 413) 0 See_Comment [Aut omated message] The system RECESS. generated this result transmitted ref erence range: [...] See_Comment [Aut omated message] 670) The system RECESS. generated this result transmitted ref erence range: 1.80 - 8 .00 K/L. The refe rence range was not u sed to interpret this result as normal/abnor mal. # Lymphs (test code = 0.97 See_Comment L [Auto mated message] 414) The system RECESS. generated this result transmitted ref erence range: 1.48 - 4 .50 K/L. The refe rence range was not u sed to interpret this result as normal/abnor mal. # Monos (test code = 0.74 See_Comment [Autom ated message] 415) The system RECESS. generated this result transmitted ref erence range: 0.00 - 1 .30 K/L. The refe rence range was not u sed to interpret this result as normal/abnor mal. # Eos (test code = 416) 0.21 See_Comment [Au tomated message] The system RECESS. generated this result transmitted ref erence range: 0.00 - 0 .50 K/L. The refe rence range was not u sed to interpret this result as normal/abnor mal. # Baso (test code = 417) 0.05 See_Comment [A utomated message] The system RECESS. generated this result transmitted ref erence range: 0.00 - 0 .20 K/L. The refe rence range was not u sed to interpret this result as normal/abnor mal. Immature 1 % 0-0 H Granulocytes-Relative (test code = 2801) Lab Interpretation (test Abnormal code = 23487-1) [facility] W/PLT COUNT & AUTO [id number] 05:17:00 Test Item Value Reference Range Interpretation [...] PERCENT (BEAKER) (test code = 2801) POCT-GLUCOSE [id number] 13:00:00 Test Item Value Reference Range Interpretation Comments POC-GLUCOSE METER 114 mg/dL 70-110 H : Notified RN/MD: TESTED (BEAKER) (test code AT [address] POINT = 1538) [facility] [address]: Housekeeping/Laundry Supervisor/Techni cornelia ID = [id number] for Gerry xochilt Cony ANAEROBIC [id number] 09:52:00 Test Item Value Reference Range Interpretation Comments CULTURE (BEAKER) (test No anaerobes isolated code = 1095) Anaerobic [id number] 09:51:00 Test Item Value Reference Range Interpretation Comments Result (test code = No anaerobes isolated 6463-4) [facility] [id number] 09:51:00 Test Item Value Reference Range Interpretation Comments Result (test code = No anaerobes isolated 6463-4) [facility] [id number] 09:51:00 Test Item Value Reference Range Interpretation Comments Result (test code = No anaerobes isolated 6463-4) [facility] [id number] 09:51:00 Test Item Value Reference Range Interpretation Comments Result (test code = No anaerobes isolated 6463-4) [facility] [id number] 09:51:00 Test Item Value Reference Range Interpretation Comments Result (test code = No anaerobes isolated 6463-4) [facility] [id number] 09:51:00 Test Item Value Reference Range Interpretation Comments Result (test code = No anaerobes isolated 6463-4) [facility] [id number] 09:51:00 Test Item Value Reference Range Interpretation Comments Result (test code = No anaerobes isolated 6463-4) [facility] [id number] 09:51:00 Test Item Value Reference Range Interpretation Comments CULTURE (BEAKER) (test No anaerobes isolated code = 1095) BASIC METABOLIC [id number] 06:34:00 Test Item Value Reference Range Interpretation [...] S NOT APPLICABLE FOR DIALYSIS PATIEN TS. Housekeeping/Laundry Supervisor ID - [id number] ID - [id number] ID - [id number] ID - [id number] ID - [id number] ID - [id number] ID - [id number] ID - [id number] ID - [id number] ID - [id number]- GLUCOSE [id number] 06:13:00 Test Item Value Reference Range Interpretation Comments POC-GLUCOSE METER 95 mg/dL 70-110 : TESTED A T [address] (BEAKER) (test code = [address], 15[address]) [facility] [address]: Housekeeping/Laundry Supervisor/Techni cornelia ID = [id number] for Agustina Harrison [id number] 05:36:00 Test Item Value Reference Range Interpretation Comments MAGNESIUM (BEAKER) (test code = 1.9 mg/dL 1.5-3.0 627) Housekeeping/Laundry Supervisor ID - [id number] ID - [id number] ID - [id number] ID - [id number] W/PLT COUNT & AUTO [id number] 05:21:00 Test Item Value Reference Range Interpretation [...] PERCENT (BEAKER) (test code = 2801) POCT-GLUCOSE [id number] 21:10:00 Test Item Value Reference Range Interpretation Comments POC-GLUCOSE METER 137 mg/dL 70-110 H : TESTED A T [address] (BEAKER) (test code [facility] [address], = 1538) [place] [address]208: Housekeeping/Laundry Supervisor/Techni cornelia ID = [id number] for Agustina Harrison POCT-GLUCOSE [id number] 19:19:00 Test Item Value Reference Range Interpretation Comments POC-GLUCOSE METER 119 mg/dL 70-110 H : TESTED A T [address] (BEAKER) (test code [facility] [address], = 1538) [place] [address]: Housekeeping/Laundry Supervisor/Techni cornelia ID = [id number] for Heidy Martin POCT-GLUCOSE [id number] 12:43:00 Test Item Value Reference Range Interpretation Comments POC-GLUCOSE METER 126 mg/dL 70-110 H : TESTED A T [address] (BEAKER) (test code [facility] [address], = 1538) [facility] [address]: Housekeeping/Laundry Supervisor/Techni cornelia ID = [id number] for Heidy Martin POCT-GLUCOSE [id number] 06:47:00 Test Item Value Reference Range Interpretation Comments POC-GLUCOSE METER 132 mg/dL 70-110 H : TESTED A T [address] (BEAKER) (test code [address], = 1538) [place] [address]: Housekeeping/Laundry Supervisor/Techni cornelia ID = [id number] for Zackary Bustamante si BASIC METABOLIC [id number] 04:59:00 Test Item Value Reference Range Interpretation [...] S NOT APPLICABLE FOR DIALYSIS PATIEN TS. Housekeeping/Laundry Supervisor ID - [id number] ID - [id number] ID - [id number] ID - [id number] ID - [id number] ID - [id number] ID - [id number] ID - [id number] ID - [id number] ID - [id number] 04:44:00 Test Item Value Reference Range Interpretation Comments MAGNESIUM (BEAKER) (test code = 2.0 mg/dL 1.5-3.0 627) Housekeeping/Laundry Supervisor ID - [id number] ID - [id number] ID - [id number] ID - [id number] W/PLT COUNT & AUTO [id number] 04:30:00 Test Item Value Reference Range Interpretation [...] PERCENT (BEAKER) (test code = 2801) POCT-GLUCOSE [id number] 23:23:00 Test Item Value Reference Range Interpretation Comments POC-GLUCOSE METER 156 mg/dL 70-110 H : TESTED A T [address] (BEAKER) (test code [address] [facility], = 1538) [place] [address]: Housekeeping/Laundry Supervisor/Techni cornelia ID = [id number] for Pakkerri siYfno POCT-GLUCOSE [id number] 18:35:00 Test Item Value Reference Range Interpretation Comments POC-GLUCOSE METER 137 mg/dL 70-110 H : TESTED A T [address] (BEAKER) (test code [address] [facility], = 1538) [place] [address]: Housekeeping/Laundry Supervisor/Techni cornelia ID = [id number] for Adrienne r, Heidy POCT-GLUCOSE [id number] 13:42:00 Test Item Value Reference Range Interpretation Comments POC-GLUCOSE METER 109 mg/dL 70-110 : TESTED A T [address] (BEAKER) (test code [address] [facility], = 1538) [place] [address]: Housekeeping/Laundry Supervisor/Techni cornelia ID = [id number] for Adrienne r, Heidy RAD, FOOT, MIN 3 VIEWS, [id number] 09:06:00Reason for exam:->s/[facility] 5[facility] 1975 Sex: MFINAL [...] Gleason Verified Date/Time: 09/26/2020 09:06:00 Reading Location: [facility] Radiology Reading Room XR foot 3 views [id number] 09:06:00 Interface, External Ris In - 09/26/2020 [...] Gleason Verified Date/Time: 09/26/2020 09:06:00 Reading Location: [facility] [id number] 09:06:00Interface, External Ris In - 09/26/2020 9:08 [...] Gleason Verified Date/Time: 09/26/2020 09:06:00 Reading Location: [facility] Radiology [facility] [id number] 09:06:00Interface, External Ris In - 09/26/2020 9:08 [...] Gleason Verified Date/Time: 09/26/2020 09:06:00 Reading Location: [facility] Radiology [facility] [id number] 09:06:00Interface, External Ris In - 09/26/2020 9:08 [...] Gleason Verified Date/Time: 09/26/2020 09:06:00 Reading Location: [facility] Radiology Reading [facility] [id number] 08:47:00 Test Item Value Reference Range Interpretation Comments POC-GLUCOSE METER 134 mg/dL 70-110 H : Notified RN/MD: TESTED (CECILIO) (test code AT [facility] [address] [place] [address] = 1538) [facility] [address]: Housekeeping/Laundry Supervisor/Techni cornelia ID = [id number] for Marzena Ponce BASIC METABOLIC [id number] 06:13:00 Test Item Value Reference Range Interpretation [...] S NOT APPLICABLE FOR DIALYSIS PATIEN TS. Housekeeping/Laundry Supervisor ID - [id number] ID - [id number] ID - [id number] ID - [id number] ID - [id number] ID - [id number] ID - [id number] ID - yymy79Zkyheabg ID - [id number] ID - [id number] 06:08:00 Test Item Value Reference Range Interpretation Comments MAGNESIUM (BEAKER) (test code = 2.2 mg/dL 1.5-3.0 627) Housekeeping/Laundry Supervisor ID - [id number] ID - [id number] ID - [id number] ID - [id number] B-type Natriuretic Factor (BNP)2020-09-26 06:01:00 Test Item Value Reference Range Interpretation Comments BNP (test code = 19515-1) 929 pg/mL 0-100 H ISSA (test code = ISSA) Housekeeping/Laundry Supervisor ID - [id number] Lab Interpretation (test Abnormal code = 66891-9) [facility]BNP[facility]2020-09-26 06:01:00 Test Item Value Reference Range Interpretation Comments BNP (test code = 62237-1) 929 pg/mL 0-100 H ISSA (test code = ISSA) Housekeeping/Laundry Supervisor ID - [id number] Lab Interpretation (test Abnormal code = 84136-6) [facility] Natriuretic Factor (BNP)2020-09-26 06:01:00 Test Item Value Reference Range Interpretation Comments BNP (test code = 28001-7) 929 pg/mL 0-100 H ISSA (test code = ISSA) Housekeeping/Laundry Supervisor ID - [id number] Lab Interpretation (test Abnormal code = 23722-4) [facility]-type Natriuretic Factor (BNP)2020-09-26 06:01:00 Test Item Value Reference Range Interpretation Comments BNP (test code = 37336-4) 929 pg/mL 0-100 H ISSA (test code = ISSA) Housekeeping/Laundry Supervisor ID - [id number] Lab Interpretation (test Abnormal code = 55189-6) [facility]-type Natriuretic Factor (BNP)2020-09-26 06:01:00 Test Item Value Reference Range Interpretation Comments BNP (test code = 93249-5) 929 pg/mL 0-100 H ISSA (test code = ISSA) Housekeeping/Laundry Supervisor ID - [id number] Lab Interpretation (test Abnormal code = 25349-3) [facility]-type Natriuretic Factor (BNP)2020-09-26 06:01:00 Test Item Value Reference Range Interpretation Comments BNP (test code = 50862-8) 929 pg/mL 0-100 H ISSA (test code = ISSA) Housekeeping/Laundry Supervisor ID - [id number] Lab Interpretation (test Abnormal code = 75042-2) [facility]-type Natriuretic Factor (BNP)2020-09-26 06:01:00 Test Item Value Reference Range Interpretation Comments BNP (test code = 80757-7) 929 pg/mL 0-100 H ISSA (test code = ISSA) Housekeeping/Laundry Supervisor ID - [id number] Lab Interpretation (test Abnormal code = 84283-1) [facility]-TYPE NATRIURETIC FACTOR (BNP)2020-09-26 06:01:00 Test Item Value Reference Range Interpretation Comments B-TYPE NATRIURETIC PEPTIDE (BEAKER) 929 pg/mL 0-100 H (test code = 700) Housekeeping/Laundry Supervisor ID - [id number] W/PLT COUNT & AUTO [id number] 05:44:00 Test Item Value Reference Range Interpretation [...] PERCENT (BEAKER) (test code = 2801) POCT-GLUCOSE [id number] 21:22:00 Test Item Value Reference Range Interpretation Comments POC-GLUCOSE METER 162 mg/dL 70-110 H : TESTED A T [facility] 1317 (BEAKER) (test [facility] = [facility]) [place] [address]: Housekeeping/Laundry Supervisor/Techni cornelia ID = [id number] for Orlandomaliha mcghee Agustina POCT-GLUCOSE [id number] 16:27:00 Test Item Value Reference Range Interpretation Comments POC-GLUCOSE METER 151 mg/dL 70-110 H : TESTED A T [facility] 1317 (BEAKER) (test code [facility], = 1538) [place] [address]: Housekeeping/Laundry Supervisor/Techni cornelia ID = [id number] for Judy borden, Ayinor POCT-GLUCOSE [id number] 11:32:00 Test Item Value Reference Range Interpretation Comments POC-GLUCOSE METER 104 mg/dL 70-110 : TESTED A T [facility] (BEAKER) ([facility] = 15[facility]) [place] [address]208: Housekeeping/Laundry Supervisor/Techni cornelia ID = [id number] for Judy suha, Ayinor POCT-GLUCOSE [id number] 06:17:00 Test Item Value Reference Range Interpretation Comments POC-GLUCOSE METER 112 mg/dL 70-110 H : TESTED A T [facility] 1317 (BEAKER) (test code [facility], = 1538) [place] [address]: Housekeeping/Laundry Supervisor/Techni cornelia ID = [id number] for Lani Kat [id number] 05:39:00 Test Item Value Reference Range Interpretation Comments MAGNESIUM (BEAKER) (test code = 1.9 mg/dL 1.5-3.0 627) Housekeeping/Laundry Supervisor ID - LITOOperator ID - LITOOperator ID - LITOOperator ID - LITOBASIC METABOLIC [id number] 05:38:00 Test Item Value Reference Range Interpretation [...] S NOT APPLICABLE FOR DIALYSIS PATIEN TS. Housekeeping/Laundry Supervisor ID - LITOOperator ID - LITOOperator ID - LITOOperator ID - LITOOperator ID - LITOOperator ID - LITOOperator ID - LITOOperator ID - LITOOperator ID - LITOOperator ID - LITOCBC W/PLT COUNT & AUTO [id number] 05:20:00 Test Item Value Reference Range Interpretation [...] PERCENT (BEAKER) (test code = 2801) POCT-GLUCOSE [id number] 20:48:00 Test Item Value Reference Range Interpretation Comments POC-GLUCOSE METER 167 mg/dL 70-110 H : TESTED A T [facility]17 (BEAKER) (test code [facility], = 1538) [place] [address]: Housekeeping/Laundry Supervisor/Techni cornelia ID = [id number] for Lani Kat POCT-GLUCOSE [id number] 17:48:00 Test Item Value Reference Range Interpretation Comments POC-GLUCOSE METER 260 mg/dL 70-110 H : TESTED A T [facility] (BEAKER) (test code [address] [facility] = 1538) [place] [address]: Housekeeping/Laundry Supervisor/Techni cornelia ID = [id number] for Heidy Martin ARTERIAL DOPPLER LEGS, [id number] 13:42:00Reason for exam:- >osteomyelitis left [facility] : 1975 Sex: [...] MDReport Verified Date/Time: 09/24/2020 13:42:37 Reading Location: [facility] Radiology Reading Room Arterial Doppler Legs [id number] 13:42:00Interface, External Ris In - 09/24/2020 1:44 [...] Ortiz Verified Date/Time: 09/24/2020 13:42:37 Reading Location: [facility] Radiology [facility] [id number] 13:42:00Interface, External Ris In - 09/24/2020 1:44 [...] Ortiz Verified Date/Time: 09/24/2020 13:42:37 Reading Location: [facility] Radiology [facility] [id number] 13:42:00Interface, External Ris In - 09/24/2020 1:44 [...] Ortiz Verified Date/Time: 09/24/2020 13:42:37 Reading Location: [facility] Radiology Reading [facility] [id number] 13:42:00Interface, External Ris In - 09/24/2020 1:44 [...] Ortiz Verified Date/Time: 09/24/2020 13:42:37 Reading Location: [facility] Radiology Reading Room [facility] N[facility], random [id number] 10:42:00 Test Item Value Reference Range Interpretation Comments Urea Nitrogen, Ur 236 mg/dL (test code = 3095-7) ISSA (test code = Reference Range: No ISSA) NormalsOperator ID - [facility], random [id number] 10:42:00 Test Item Value Reference Range Interpretation Comments Urea Nitrogen, Ur 236 mg/dL (test code = 3095-7) ISSA (test code = Reference Range: No ISSA) NormalsOperator ID - [facility] CenterU[facility] Nitrogen, random [id number] 10:42:00 Test Item Value Reference Range Interpretation Comments Urea Nitrogen, Ur 236 mg/dL (test code = 3095-7) ISSA (test code = Reference Range: No ISSA) NormalsOperator ID - [facility] CenterU[facility] Nitrogen, random [id number] 10:42:00 Test Item Value Reference Range Interpretation Comments Urea Nitrogen, Ur 236 mg/dL (test code = 3095-7) ISSA (test code = Reference Range: No ISSA) NormalsOperator ID - [facility] CenterU[facility] Nitrogen, random [id number] 10:42:00 Test Item Value Reference Range Interpretation Comments Urea Nitrogen, Ur 236 mg/dL (test code = 3095-7) ISSA (test code = Reference Range: No ISSA) NormalsOperator ID - [facility] CenterU[facility] Nitrogen, random [id number] 10:42:00 Test Item Value Reference Range Interpretation Comments Urea Nitrogen, Ur 236 mg/dL (test code = 3095-7) ISSA (test code = Reference Range: No ISSA) NormalsOperator ID - [facility] CenterU[facility] Nitrogen, random [id number] 10:42:00 Test Item Value Reference Range Interpretation Comments Urea Nitrogen, Ur 236 mg/dL (test code = 3095-7) ISSA (test code = Reference Range: No ISSA) NormalsOperator ID - [facility] CenterUREA NITROGEN, RANDOM [id number] 10:42:00 Test Item Value Reference Range Interpretation Comments UREA NITROGEN URINE (BEAKER) (test 236 mg/dL code = 538) Reference Range: No NormalsOperator ID - [facility] CVitamin D, [id number] 10:38:00 Test Item Value Reference Range Interpretation Comments Vitamin D 25-Hydroxy 7.3 ng/mL 6.6-49.9 (test code = 2764) ISSA (test code = ISSA) Effective 01/06/2017: Reference Range ChangeNew: 6.6-49.9 ng/mL Previous: 13.0-47.8 ng/mL Recommended Vitamin D Target Range: 30.0-40.0 ng/mLOperator ID - ORION C Lab Interpretation (test Normal code = 62772-1) [facility]CV[facility], 52-[id number] 10:38:00 Test Item Value Reference Range Interpretation Comments Vitamin D 25-Hydroxy 7.3 ng/mL 6.6-49.9 (test code = 2764) ISSA (test code = ISSA) Effective 01/06/2017: Reference Range ChangeNew: 6.6-49.9 ng/mL Previous: 13.0-47.8 ng/mL Recommended Vitamin D Target Range: 30.0-40.0 ng/mLOperator ID - [facility]ION C Lab Interpretation (test Normal code = 07424-6) [facility]CV[facility], 94-Spitwdj1558-28-29 10:38:00 Test Item Value Reference Range Interpretation Comments Vitamin D 25-Hydroxy 7.3 ng/mL 6.6-49.9 (test code = 2764) ISSA (test code = ISSA) Effective 01/06/2017: Reference Range ChangeNew: 6.6-49.9 ng/mL Previous: 13.0-47.8 ng/mL Recommended Vitamin D Target Range: 30.0-40.0 ng/mLOperator ID - ORION C Lab Interpretation (test Normal code = 80340-2) [facility]CV[facility], 19-[id number] 10:38:00 Test Item Value Reference Range Interpretation Comments Vitamin D 25-Hydroxy 7.3 ng/mL 6.6-49.9 (test code = 2764) ISSA (test code = ISSA) Effective 01/06/2017: Reference Range ChangeNew: 6.6-49.9 ng/mL Previous: 13.0-47.8 ng/mL Recommended Vitamin D Target Range: 30.0-40.0 ng/mLOperator ID - [facility]ION C Lab Interpretation (test Normal code = 05070-4) [facility], 06-[id number] 10:38:00 Test Item Value Reference Range Interpretation Comments Vitamin D 25-Hydroxy 7.3 ng/mL 6.6-49.9 (test code = 2764) ISSA (test code = ISSA) Effective 01/06/2017: Reference Range ChangeNew: 6.6-49.9 ng/mL Previous: 13.0-47.8 ng/mL Recommended Vitamin D Target Range: 30.0-40.0 ng/mLOperator ID - ORION C Lab Interpretation (test Normal code = 38357-5) [facility]CV[facility], 95-[id number] 10:38:00 Test Item Value Reference Range Interpretation Comments Vitamin D 25-Hydroxy 7.3 ng/mL 6.6-49.9 (test code = 2764) ISSA (test code = ISSA) Effective 01/06/2017: Reference Range ChangeNew: 6.6-49.9 ng/mL Previous: 13.0-47.8 ng/mL Recommended Vitamin D Target Range: 30.0-40.0 ng/mLOperator ID - ORION C Lab Interpretation (test Normal code = 77685-0) [facility], 67-[id number] 10:38:00 Test Item Value Reference Range Interpretation Comments Vitamin D 25-Hydroxy 7.3 ng/mL 6.6-49.9 (test code = 2764) ISSA (test code = ISSA) Effective 01/06/2017: Reference Range ChangeNew: 6.6-49.9 ng/mL Previous: 13.0-47.8 ng/mL Recommended Vitamin D Target Range: 30.0-40.0 ng/mLOperator ID - ORION C Lab Interpretation (test Normal code = 38828-0) [facility] USCVITAMIN D, [id number] 10:38:00 Test Item Value Reference Range Interpretation Comments VITAMIN D 25-OH (BEAKER) (test code 7.3 ng/mL 6.6-49.9 = 2764) Effective 01/06/2017: Reference Range ChangeNew: 6.6-49.9 ng/mL Previous: 13.0-47.8 ng/mLRecommended Vitamin D Target Range: 30.0-40.0 ng/mLOperator ID - [facility]ION [facility], [id number] 07:31:00 Test Item Value Reference Range Interpretation Comments PTH (test code = 2731-8) 271.6 pg/mL 15-90 H ISAS (test code = ISSA) Housekeeping/Laundry Supervisor ID - [id number] Lab Interpretation (test Abnormal code = 86046-4) [facility], [id number] 07:31:00 Test Item Value Reference Range Interpretation Comments PTH (test code = 2731-8) 271.6 pg/mL 15-90 H ISSA (test code = ISSA) Housekeeping/Laundry Supervisor ID - [id number] Lab Interpretation (test Abnormal code = 35164-7) [facility], [id number] 07:31:00 Test Item Value Reference Range Interpretation Comments PTH (test code = 2731-8) 271.6 pg/mL 15-90 H ISSA (test code = ISSA) Housekeeping/Laundry Supervisor ID - [id number] Lab Interpretation (test Abnormal code = 20237-5) [facility], [id number] 07:31:00 Test Item Value Reference Range Interpretation Comments PTH (test code = 2731-8) 271.6 pg/mL 15-90 H ISSA (test code = ISSA) Housekeeping/Laundry Supervisor ID - [id number] Lab Interpretation (test Abnormal code = 87013-2) [facility], [id number] 07:31:00 Test Item Value Reference Range Interpretation Comments PTH (test code = 2731-8) 271.6 pg/mL 15.0-90.0 H ISSA (test code = ISSA) Housekeeping/Laundry Supervisor ID - [id number] Lab Interpretation (test Abnormal code = 87933-5) [facility], [id number] 07:31:00 Test Item Value Reference Range Interpretation Comments PTH (test code = 2731-8) 271.6 pg/mL 15.0-90.0 H ISSA (test code = ISSA) Housekeeping/Laundry Supervisor ID - [id number] Lab Interpretation (test Abnormal code = 13472-2) [facility], [id number] 07:31:00 Test Item Value Reference Range Interpretation Comments PTH (test code = 2731-8) 271.6 pg/mL 15.0-90.0 H ISSA (test code = ISSA) Housekeeping/Laundry Supervisor ID - [id number] Lab Interpretation (test Abnormal code = 59667-5) [facility] US[facility], [id number] 07:31:00 Test Item Value Reference Range Interpretation Comments PARATHYROID HORMONE INTACT 271.6 pg/mL 15.0-90.0 H (BEAKER) (test code = 577) Housekeeping/Laundry Supervisor ID - [id number] [id number] 06:45:00 Test Item Value Reference Range Interpretation Comments POC-GLUCOSE METER 122 mg/dL 70-110 H : Notified RN/MD: TESTED (RAADAKER) (test code AT [facility] [address] = 1538) [facility] [address]: Housekeeping/Laundry Supervisor/Techni cornleia ID = [id number] for Coco Griffin Iron, TIBC, % sat. (without ferritin)2020-09-24 06:41:00 Test Item Value Reference Range Interpretation Comments Iron (test code = 43.0 ug/dL 45-170 L 2498-4) TIBC (test code = 189 ug/dL 250-550 L 2500-7) Iron % Saturation (test 23 % 20-55 code = 2502-3) ISSA (test code = ISSA) Housekeeping/Laundry Supervisor ID - LITOOperator ID - ARCHIE Lab Interpretation (test Abnormal code = 24569-8) [facility], TIBC, % sat. (without ferritin)2020-09-24 06:41:00 Test Item Value Reference Range Interpretation Comments Iron (test code = 43.0 ug/dL 45-170 L 2498-4) TIBC (test code = 189 ug/dL 250-550 L 2500-7) Iron % Saturation (test 23 % 20-55 code = 2502-3) ISSA (test code = ISSA) Housekeeping/Laundry Supervisor ID - LITOOperator ID - ARCHIE Lab Interpretation (test Abnormal code = 88138-6) [facility] USCIron, TIBC, % sat. (without ferritin)2020-09-24 06:41:00 Test Item Value Reference Range Interpretation Comments Iron (test code = 43.0 ug/dL 45-170 L 2498-4) TIBC (test code = 189 ug/dL 250-550 L 2500-7) Iron % Saturation (test 23 % 20-55 code = 2502-3) ISSA (test code = ISSA) Housekeeping/Laundry Supervisor ID - LITOOperator ID - ARCHIE Lab Interpretation (test Abnormal code = 57671-5) [facility], TIBC, % sat. (without ferritin)2020-09-24 06:41:00 Test Item Value Reference Range Interpretation Comments Iron (test code = 43.0 ug/dL 45-170 L 2498-4) TIBC (test code = 189 ug/dL 250-550 L 2500-7) Iron % Saturation (test 23 % 20-55 code = 2502-3) ISSA (test code = ISSA) Housekeeping/Laundry Supervisor ID - LITOOperator ID - ARCHIE Lab Interpretation (test Abnormal code = 59552-5) [facility], TIBC, % sat. (without ferritin)2020-09-24 06:41:00 Test Item Value Reference Range Interpretation Comments Iron (test code = 43.0 ug/dL 45.0-170.0 L 2498-4) TIBC (test code = 189 ug/dL 250-550 L 2500-7) Iron % Saturation (test 23 % 20-55 code = 2502-3) ISSA (test code = ISSA) Housekeeping/Laundry Supervisor ID - LITOOperator ID - ARCHIE Lab Interpretation (test Abnormal code = 29522-6) [facility], TIBC, % sat. (without ferritin)2020-09-24 06:41:00 Test Item Value Reference Range Interpretation Comments Iron (test code = 43.0 ug/dL 45.0-170.0 L 2498-4) TIBC (test code = 189 ug/dL 250-550 L 2500-7) Iron % Saturation (test 23 % 20-55 code = 2502-3) ISSA (test code = ISSA) Housekeeping/Laundry Supervisor ID - LITOOperator ID - ARCHIE Lab Interpretation (test Abnormal code = 24045-0) [facility], TIBC, % sat. (without ferritin)2020-09-24 06:41:00 Test Item Value Reference Range Interpretation Comments Iron (test code = 43.0 ug/dL 45.0-170.0 L 2498-4) TIBC (test code = 189 ug/dL 250-550 L 2500-7) Iron % Saturation (test 23 % 20-55 code = 2502-3) ISSA (test code = ISSA) Housekeeping/Laundry Supervisor ID - LITOOperator ID - ARCHIE Lab Interpretation (test Abnormal code = 56833-1) [facility] USCIRON, TIBC, % SAT. (WITHOUT FERRITIN)2020-09-24 06:41:00 Test Item Value Reference Range Interpretation Comments IRON (BEAKER) (test code = 547) 43.0 ug/dL 45.0-170.0 L TOTAL IRON BINDING CAPACITY 189 ug/dL 250-550 L (BEAKER) (test code = 769) IRON % SATURATION (2) (BEAKER) 23 % 20-55 (test code = 2590) Housekeeping/Laundry Supervisor ID - LITOOperator ID - [id number] 06:23:00 Test Item Value Reference Range Interpretation Comments Ferritin (test code = 190.40 ng/mL 2276-4) ISSA (test code = ISSA) Housekeeping/Laundry Supervisor ID - ARCHIE Lab Interpretation (test Normal code = 03459-5) [facility] USCFerritin2021-06-29 06:23:00 Test Item Value Reference Range Interpretation Comments Ferritin (test code = 190.40 ng/mL 22322 2276-4) ISSA (test code = ISSA) Housekeeping/Laundry Supervisor ID - ARCHIE Lab Interpretation (test Normal code = 75934-3) [facility]CFerritin2021-06-29 06:23:00 Test Item Value Reference Range Interpretation Comments Ferritin (test code = 190.40 ng/mL 22322 2276-4) ISSA (test code = ISSA) Housekeeping/Laundry Supervisor ID - ARCHIE Lab Interpretation (test Normal code = 57058-3) [facility]CFerritin2021-[facility]-29 06:23:00 Test Item Value Reference Range Interpretation Comments Ferritin (test code = 190.40 ng/mL 22322 2276-4) ISSA (test code = ISSA) Housekeeping/Laundry Supervisor ID - ARCHIE Lab Interpretation (test Normal code = 68874-2) [facility]CFerritin2021-06-29 06:23:00 Test Item Value Reference Range Interpretation Comments Ferritin (test code = 190.40 ng/mL 22.00-322.00 2276-4) ISSA (test code = ISSA) Housekeeping/Laundry Supervisor ID - ARCHIE Lab Interpretation (test Normal code = 59270-1) [facility]CF[facility]in2021-06-29 06:23:00 Test Item Value Reference Range Interpretation Comments Ferritin (test code = 190.40 ng/mL 22.00-322.00 2276-4) ISSA (test code = ISSA) Housekeeping/Laundry Supervisor ID - ARCHIE Lab Interpretation (test Normal code = 88054-3) [facility]in2021-[facility]-29 06:23:00 Test Item Value Reference Range Interpretation Comments Ferritin (test code = 190.40 ng/mL 22.00-322.00 2276-4) ISSA (test code = ISSA) Housekeeping/Laundry Supervisor ID - ARCHIE Lab Interpretation (test Normal code = 13961-1) [facility]CFERRITIN2021-06-29 06:23:00 Test Item Value Reference Range Interpretation Comments FERRITIN (BEAKER) (test code = 190.40 ng/mL 22.00-322.00 361) Housekeeping/Laundry Supervisor ID - LITOBASIC METABOLIC [id number] 06:18:00 Test Item Value Reference Range Interpretation [...] S NOT APPLICABLE FOR DIALYSIS PATIEN TS. Housekeeping/Laundry Supervisor ID - LITOOperator ID - LITOOperator ID - LITOOperator ID - LITOOperator ID - LITOOperator ID - LITOOperator ID - LITOOperator ID - LITOOperator ID - LITOOperator ID - [id number] 06:04:00 Test Item Value Reference Range Interpretation Comments MAGNESIUM (BEAKER) (test code = 1.6 mg/dL 1.5-3.0 627) Housekeeping/Laundry Supervisor ID - LITOOperator ID - LITOOperator ID - LITOOperator ID - LITOCBC W/PLT COUNT & AUTO [id number] 06:03:00 Test Item Value Reference Range Interpretation [...] PERCENT (BEAKER) (test code = 2801) POCT-GLUCOSE [id number] 21:37:00 Test Item Value Reference Range Interpretation Comments POC-GLUCOSE METER 185 mg/dL 70-110 H : TESTED A T [facility] [address] (BEAKER) (test code [facility] [address], = 1538) [facility] [address]: Housekeeping/Laundry Supervisor/Techni cornelia ID = [id number] for Rachel Branham U/S, RENAL, [id number] 21:19:00Reason for exam:->[facility] 1975 Sex: MFINAL [...] residual. Signed: Moose Petersen Verified Date/Time: 121:19:36 renal [id number] 21:19:00Interface, External Ris In - 09/23/2020 9:21 [...] Signed: Teo Petersen Verified Date/Time: 09/23/2020 21:19:36 [facility] renal complete 2020-09-23 21:19:00Interface, External Ris In [...] Signed: Moose Petersen Verified Date/Time: 09/23/2020 21:19:36 [facility] [id number] 21:19:00Interface, External Ris In - 09/23/2020 9:21 [...] Amuta, Moose MDReport Verified Date/Time: 09/23/2020 21:19:36 [facility] [id number] 21:19:00Interface, External Ris In - 09/23/2020 9:21 [...] Moose Petersen MDReport Verified Date/Time: 09/23/2020 21:19:36 [facility] Protein, random [id number] 19:02:00 Test Item Value Reference Range Interpretation Comments Protein, Urine (test code 212 mg/dL 0-14 H = 2888-6) ISSA (test code = ISSA) Housekeeping/Laundry Supervisor ID - [id number] ID - [id number] Lab Interpretation (test Abnormal code = 63082-0) [facility] USCProtein, random [id number] 19:02:00 Test Item Value Reference Range Interpretation Comments Protein, Urine (test code 212 mg/dL 0-14 H = 2888-6) ISSA (test code = ISSA) Housekeeping/Laundry Supervisor ID - [id number] ID - [id number] Lab Interpretation (test Abnormal code = 98656-6) [facility] USCProtein, random [id number] 19:02:00 Test Item Value Reference Range Interpretation Comments Protein, Urine (test code 212 mg/dL 0-14 H = 2888-6) ISSA (test code = ISSA) Housekeeping/Laundry Supervisor ID - [id number] ID - [id number] Lab Interpretation (test Abnormal code = 26898-4) [facility] USCProtein, random [id number] 19:02:00 Test Item Value Reference Range Interpretation Comments Protein, Urine (test code 212 mg/dL 0-14 H = 2888-6) ISSA (test code = ISSA) Housekeeping/Laundry Supervisor ID - [id number] ID - [id number] Lab Interpretation (test Abnormal code = 85132-0) [facility] USCProtein, random [id number] 19:02:00 Test Item Value Reference Range Interpretation Comments Protein, Urine (test code 212 mg/dL 0-14 H = 2888-6) ISSA (test code = ISSA) Housekeeping/Laundry Supervisor ID - [id number] ID - [id number] Lab Interpretation (test Abnormal code = 01926-8) [facility] USCProtein, random [id number] 19:02:00 Test Item Value Reference Range Interpretation Comments Protein, Urine (test code 212 mg/dL 0-14 H = 2888-6) ISSA (test code = ISSA) Housekeeping/Laundry Supervisor ID - [id number] ID - [id number] Lab Interpretation (test Abnormal code = 08881-3) [facility] USCProtein, random [id number] 19:02:00 Test Item Value Reference Range Interpretation Comments Protein, Urine (test code 212 mg/dL 0-14 H = 2888-6) ISSA (test code = ISSA) Housekeeping/Laundry Supervisor ID - [id number] ID - [id number] Lab Interpretation (test Abnormal code = 96624-9) [facility] USCPROTEIN, RANDOM [id number] 19:02:00 Test Item Value Reference Range Interpretation Comments PROTEIN, URINE (BEAKER) (test code 212 mg/dL 0-14 H = 1569) Housekeeping/Laundry Supervisor ID - [id number] ID - [id number], random [id number] 18:49:00 Test Item Value Reference Range Interpretation Comments Creatinine, Ur 23.8 mg/dL (test code = 2161-8) ISSA (test code = Reference Range: No ISSA) NormalsOperator ID - [id number] [facility], random [id number] 18:49:00 Test Item Value Reference Range Interpretation Comments Creatinine, Ur 23.8 mg/dL (test code = 2161-8) ISSA (test code = Reference Range: No ISSA) NormalsOperator ID [id number] [facility] [id number] 18:49:00 Test Item Value Reference Range Interpretation Comments Creatinine, Ur 23.8 mg/dL (test code = 2161-8) ISSA (test code = Reference Range: No ISSA) NormalsOperator ID - [id number] [facility] [id number] 18:49:00 Test Item Value Reference Range Interpretation Comments Creatinine, Ur 23.8 mg/dL (test code = 216-8) ISSA (test code = Reference Range: No ISSA) NormalsOperator ID - [id number] [facility] [id number] 18:49:00 Test Item Value Reference Range Interpretation Comments Creatinine, Ur 23.8 mg/dL (test code = 2161-8) ISSA (test code = Reference Range: No ISSA) NormalsOperator ID - [id number] [facility], random [id number] 18:49:00 Test Item Value Reference Range Interpretation Comments Creatinine, Ur 23.8 mg/dL (test code = 2161-8) ISSA (test code = Reference Range: No ISSA) NormalsOperator ID - [id number] [facility], random [id number] 18:49:00 Test Item Value Reference Range Interpretation Comments Creatinine, Ur 23.8 mg/dL (test code = 2161-8) ISSA (test code = Reference Range: No ISSA) NormalsOperator ID - [id number] [facility] [id number] 18:49:00 Test Item Value Reference Range Interpretation Comments CREATININE URINE (BEAKER) (test 23.8 mg/dL code = 375) Reference Range: No NormalsOperator ID - [id number], random urine 2020-09-23 18:43:00 Test Item Value Reference Range Interpretation Comments ChlorideUr (test 117 meq/L code = 27852-3) ISSA (test code = Reference Range: No ISSA) NormalsOperator ID - [id number] [facility], random [id number] 18:43:00 Test Item Value Reference Range Interpretation Comments Potassium Urine 21.5 meq/L (test code = 2828-2) ISSA (test code = Reference Range: No ISSA) NormalsOperator ID - [id number] [facility] [id number] 18:43:00 Test Item Value Reference Range Interpretation Comments Sodium Urine (test 113 meq/L code = 2955-3) ISSA (test code = Reference Range: No ISSA) NormalsOperator ID - [id number] [facility], random [id number] 18:43:00 Test Item Value Reference Range Interpretation Comments ChlorideUr (test 117 meq/L code = 46360-6) ISSA (test code = Reference Range: No ISSA) NormalsOperator ID - [id number] [facility], random [id number] 18:43:00 Test Item Value Reference Range Interpretation Comments Potassium Urine 21.5 meq/L (test code = 2828-2) ISSA (test code = Reference Range: No ISSA) NormalsOperator ID - [id number] [facility], random [id number] 18:43:00 Test Item Value Reference Range Interpretation Comments Sodium Urine (test 113 meq/L code = 2955-3) ISSA (test code = Reference Range: No ISSA) NormalsOperator ID - [id number] [facility], random [id number] 18:43:00 Test Item Value Reference Range Interpretation Comments ChlorideUr (test 117 meq/L code = 42656-8) ISSA (test code = Reference Range: No ISSA) NormalsOperator ID - [id number] [facility], random [id number] 18:43:00 Test Item Value Reference Range Interpretation Comments Potassium Urine 21.5 meq/L (test code = 2828-2) ISSA (test code = Reference Range: No ISSA) NormalsOperator ID - [id number] [facility], random [id number] 18:43:00 Test Item Value Reference Range Interpretation Comments Sodium Urine (test 113 meq/L code = 2955-3) ISSA (test code = Reference Range: No ISSA) NormalsOperator ID - [id number] [facility], random [id number] 18:43:00 Test Item Value Reference Range Interpretation Comments ChlorideUr (test 117 meq/L code = 18631-5) ISSA (test code = Reference Range: No ISSA) NormalsOperator ID - [id number] [facility], random [id number] 18:43:00 Test Item Value Reference Range Interpretation Comments Potassium Urine 21.5 meq/L (test code = 2828-2) ISSA (test code = Reference Range: No ISSA) NormalsOperator ID - [id number] [facility], random [id number] 18:43:00 Test Item Value Reference Range Interpretation Comments Sodium Urine (test 113 meq/L code = 2955-3) ISSA (test code = Reference Range: No ISSA) NormalsOperator ID - [id number] [facility], random [id number] 18:43:00 Test Item Value Reference Range Interpretation Comments ChlorideUr (test 117 meq/L code = 35419-7) ISSA (test code = Reference Range: No ISSA) NormalsOperator ID - [id number] [facility], random [id number] 18:43:00 Test Item Value Reference Range Interpretation Comments Potassium Urine 21.5 meq/L (test code = 2828-2) ISSA (test code = Reference Range: No SISA) NormalsOperator ID - [id number] [facility], random [id number] 18:43:00 Test Item Value Reference Range Interpretation Comments Sodium Urine (test 113 meq/L code = 2955-3) ISSA (test code = Reference Range: No ISSA) NormalsOperator ID - [id number] [facility], random [id number] 18:43:00 Test Item Value Reference Range Interpretation Comments ChlorideUr (test 117 meq/L code = 12511-7) ISSA (test code = Reference Range: No ISSA) NormalsOperator ID - [id number] [facility], random [id number] 18:43:00 Test Item Value Reference Range Interpretation Comments Potassium Urine 21.5 meq/L (test code = 2828-2) ISSA (test code = Reference Range: No ISSA) NormalsOperator ID - [id number] [facility], random [id number] 18:43:00 Test Item Value Reference Range Interpretation Comments Sodium Urine (test 113 meq/L code = 2955-3) ISSA (test code = Reference Range: No ISSA) NormalsOperator ID - [id number] [facility], random [id number] 18:43:00 Test Item Value Reference Range Interpretation Comments ChlorideUr (test 117 meq/L code = 39136-7) ISSA (test code = Reference Range: No ISSA) NormalsOperator ID - [id number] [facility]CP[facility], random [id number] 18:43:00 Test Item Value Reference Range Interpretation Comments Potassium Urine 21.5 meq/L (test code = 2828-2) ISSA (test code = Reference Range: No ISSA) NormalsOperator ID - [id number] [facility], random [id number] 18:43:00 Test Item Value Reference Range Interpretation Comments Sodium Urine (test 113 meq/L code = 2955-3) ISSA (test code = Reference Range: No ISSA) NormalsOperator ID - [id number] [facility] USCCHLORIDE, RANDOM [id number] 18:43:00 Test Item Value Reference Range Interpretation Comments CHLORIDE URINE (BEAKER) (test code 117 meq/L = 682) Reference Range: No NormalsOperator ID - [id number], RANDOM URINE 2020-09-23 18:43:00 Test Item Value Reference Range Interpretation Comments POTASSIUM URINE (BEAKER) (test 21.5 meq/L code = 195) Reference Range: No NormalsOperator ID - [id number], RANDOM [id number] 18:43:00 Test Item Value Reference Range Interpretation Comments SODIUM URINE (BEAKER) (test code = 113 meq/L 243) Reference Range: No NormalsOperator ID - [id number] w/Microscopic + Reflex to [id number] 17:44:00 Test Item Value Reference Range Interpretation Comments Color, UA (test code = Yellow 5778-6) Clarity, UA (test code = Clear 5767-9) Specific [place], UA 1.020 1.001-1.035 (test code = 5811-5) pH, UA (test code = 7.0 5.0-8.0 5803-2) Protein, UA (test code = 100 mg/dL Negative A 99150-4) Glucose, UA (test code = 100 mg/dL Negative A 365) Ketones, UA (test code = Negative Negative 2514-8) Bilirubin, UA (test code Negative Negative = 40696-0) Blood, UA (test code = Trace Negative A 95658-2) Nitrite, UA (test code = Negative Negative 5802-4) Leukocytes, UA (test Negative Negative code = 5799-2) Urobilinogen, UA (test 0.2 mg/dL 0.2-1 code = 65653-0) Bacteria, UA (test code None Seen = 87797-3) RBC, UA (test code = <5 See_Comment [Autom ated message] 799-7) The system RECESS. generated this result transmit josé luis reference range : /HPF. The refer ence range was not u sed to interpret th is result as normal/abnormal . WBC, UA (test code = None Seen See_Comment [Autom ated message] 11192-8) The system RECESS. generated this result transmit josé luis reference range : /HPF. The refer ence range was not u sed to interpret th is result as normal/abnormal . SQUAMOUS EPITHELIAL <5 See_Comment [Automa josé luis message] (test code = 68264-6) The sy stem which generated this result transmit josé luis reference range : /HPF. The refer ence range was not u sed to interpret th is result as normal/abnormal . Specimen Source (test code = 2795) Lab Interpretation (test Abnormal code = 92759-1) [facility]/Microscopic + Reflex to Culture 2020-09-23 17:44:00 Test Item Value Reference Range Interpretation Comments Color, UA (test code = Yellow 5778-6) Clarity, UA (test code = Clear 5767-9) Specific [place], UA 1.020 1.001-1.035 (test code = 5811-5) pH, UA (test code = 7.0 5.0-8.0 5803-2) Protein, UA (test code = 100 mg/dL Negative A 36202-2) Glucose, UA (test code = 100 mg/dL Negative A 365) Ketones, UA (test code = Negative Negative 2514-8) Bilirubin, UA (test code Negative Negative = 43787-5) Blood, UA (test code = Trace Negative A 63143-6) Nitrite, UA (test code = Negative Negative 5802-4) Leukocytes, UA (test Negative Negative code = 5799-2) Urobilinogen, UA (test 0.2 mg/dL 0.2-1 code = 90610-1) Bacteria, UA (test code None Seen = 71939-3) RBC, UA (test code = <5 See_Comment [Autom ated message] 799-7) The system RECESS. generated this result transmit josé luis reference range : /HPF. The refer ence range was not u sed to interpret th is result as normal/abnormal . WBC, UA (test code = None Seen See_Comment [Autom ated message] 71126-8) The system RECESS. generated this result transmit josé luis reference range : /HPF. The refer ence range was not u sed to interpret th is result as normal/abnormal . SQUAMOUS EPITHELIAL <5 See_Comment [Automa josé luis message] (test code = 45881-7) The sy stem which generated this result transmit josé luis reference range : /HPF. The refer ence range was not u sed to interpret th is result as normal/abnormal . Specimen Source (test code = 2795) Lab Interpretation (test Abnormal code = 60437-1) [facility]/Microscopic + Reflex to Culture 2020-09-23 17:44:00 Test Item Value Reference Range Interpretation Comments Color, UA (test code = Yellow 5778-6) Clarity, UA (test code = Clear 5767-9) Specific [place], UA 1.020 1.001-1.035 (test code = 5811-5) pH, UA (test code = 7.0 5.0-8.0 5803-2) Protein, UA (test code = 100 mg/dL Negative A 15465-2) Glucose, UA (test code = 100 mg/dL Negative A 365) Ketones, UA (test code = Negative Negative 2514-8) Bilirubin, UA (test code Negative Negative = 27676-0) Blood, UA (test code = Trace Negative A 37978-0) Nitrite, UA (test code = Negative Negative 5802-4) Leukocytes, UA (test Negative Negative code = 5799-2) Urobilinogen, UA (test 0.2 mg/dL 0.2-1 code = 68926-5) Bacteria, UA (test code None Seen = 70230-0) RBC, UA (test code = <5 See_Comment [Autom ated message] 799-7) The system RECESS. generated this result transmit josé luis reference range : /HPF. The refer ence range was not u sed to interpret th is result as normal/abnormal . WBC, UA (test code = None Seen See_Comment [Autom ated message] 40368-9) The system RECESS. generated this result transmit josé luis reference range : /HPF. The refer ence range was not u sed to interpret th is result as normal/abnormal . SQUAMOUS EPITHELIAL <5 See_Comment [Automa josé luis message] (test code = 07292-2) The sy stem which generated this result transmit josé luis reference range : /HPF. The refer ence range was not u sed to interpret th is result as normal/abnormal . Specimen Source (test code = 2795) Lab Interpretation (test Abnormal code = 34797-7) [facility]/Microscopic + Reflex to Culture 2020-09-23 17:44:00 Test Item Value Reference Range Interpretation Comments Color, UA (test code = Yellow 5778-6) Clarity, UA (test code = Clear 5767-9) Specific [place], UA 1.020 1.001-1.035 (test code = 5811-5) pH, UA (test code = 7.0 5.0-8.0 5803-2) Protein, UA (test code = 100 mg/dL Negative A 97749-5) Glucose, UA (test code = 100 mg/dL Negative A 365) Ketones, UA (test code = Negative Negative 2514-8) Bilirubin, UA (test code Negative Negative = 76018-2) Blood, UA (test code = Trace Negative A 37752-4) Nitrite, UA (test code = Negative Negative 5802-4) Leukocytes, UA (test Negative Negative code = 5799-2) Urobilinogen, UA (test 0.2 mg/dL 0.2-1 code = 93419-9) Bacteria, UA (test code None Seen = 60300-3) RBC, UA (test code = <5 See_Comment [Autom ated message] 799-7) The system RECESS. generated this result transmit josé luis reference range : /HPF. The refer ence range was not u sed to interpret th is result as normal/abnormal . WBC, UA (test code = None Seen See_Comment [Autom ated message] 02929-8) The system RECESS. generated this result transmit josé luis reference range : /HPF. The refer ence range was not u sed to interpret th is result as normal/abnormal . SQUAMOUS EPITHELIAL <5 See_Comment [Automa josé luis message] (test code = 07406-5) The sy stem which generated this result transmit josé luis reference range : /HPF. The refer ence range was not u sed to interpret th is result as normal/abnormal . Specimen Source (test code = 2795) Lab Interpretation (test Abnormal code = 55096-5) [facility]/Microscopic + Reflex to Culture 2020-09-23 17:44:00 Test Item Value Reference Range Interpretation Comments Color, UA (test code = Yellow 5778-6) Clarity, UA (test code = Clear 5767-9) Specific [place], UA 1.020 1.001-1.035 (test code = 5811-5) pH, UA (test code = 7.0 5.0-8.0 5803-2) Protein, UA (test code = 100 mg/dL Negative A 54433-1) Glucose, UA (test code = 100 mg/dL Negative A 365) Ketones, UA (test code = Negative Negative 2514-8) Bilirubin, UA (test code Negative Negative = 75949-2) Blood, UA (test code = Trace Negative A 29285-0) Nitrite, UA (test code = Negative Negative 5802-4) Leukocytes, UA (test Negative Negative code = 5799-2) Urobilinogen, UA (test 0.2 mg/dL 0.2-1.0 code = 78820-6) Bacteria, UA (test code None Seen = 03270-2) RBC, UA (test code = <5 See_Comment [Autom ated message] 799-7) The system RECESS. generated this result transmit josé luis reference range : /HPF. The refer ence range was not u sed to interpret th is result as normal/abnormal . WBC, UA (test code = None Seen See_Comment [Autom ated message] 12387-1) The system RECESS. generated this result transmit josé luis reference range : /HPF. The refer ence range was not u sed to interpret th is result as normal/abnormal . SQUAMOUS EPITHELIAL <5 See_Comment [Automa josé luis message] (test code = 29935-6) The sy stem which generated this result transmit josé luis reference range : /HPF. The refer ence range was not u sed to interpret th is result as normal/abnormal . Specimen Source (test code = 2795) Lab Interpretation (test Abnormal code = 77867-5) [facility]/Microscopic + Reflex to Culture 2020-09-23 17:44:00 Test Item Value Reference Range Interpretation Comments Color, UA (test code = Yellow 5778-6) Clarity, UA (test code = Clear 5767-9) Specific [place], UA 1.020 1.001-1.035 (test code = 5811-5) pH, UA (test code = 7.0 5.0-8.0 5803-2) Protein, UA (test code = 100 mg/dL Negative A 80624-8) Glucose, UA (test code = 100 mg/dL Negative A 365) Ketones, UA (test code = Negative Negative 2514-8) Bilirubin, UA (test code Negative Negative = 40197-7) Blood, UA (test code = Trace Negative A 96809-5) Nitrite, UA (test code = Negative Negative 5802-4) Leukocytes, UA (test Negative Negative code = 5799-2) Urobilinogen, UA (test 0.2 mg/dL 0.2-1.0 code = 05707-1) Bacteria, UA (test code None Seen = 64800-3) RBC, UA (test code = <5 See_Comment [Autom ated message] 799-7) The system RECESS. generated this result transmit josé luis reference range : /HPF. The refer ence range was not u sed to interpret th is result as normal/abnormal . WBC, UA (test code = None Seen See_Comment [Autom ated message] 59294-8) The system RECESS. generated this result transmit josé luis reference range : /HPF. The refer ence range was not u sed to interpret th is result as normal/abnormal . SQUAMOUS EPITHELIAL <5 See_Comment [Automa josé luis message] (test code = 18225-1) The sy stem which generated this result transmit josé luis reference range : /HPF. The refer ence range was not u sed to interpret th is result as normal/abnormal . Specimen Source (test code = 2795) Lab Interpretation (test Abnormal code = 74621-5) [facility]/Microscopic + Reflex to Culture 2020-09-23 17:44:00 Test Item Value Reference Range Interpretation Comments Color, UA (test code = Yellow 5778-6) Clarity, UA (test code = Clear 5767-9) Specific [place], UA 1.020 1.001-1.035 (test code = 5811-5) pH, UA (test code = 7.0 5.0-8.0 5803-2) Protein, UA (test code = 100 mg/dL Negative A 95564-0) Glucose, UA (test code = 100 mg/dL Negative A 365) Ketones, UA (test code = Negative Negative 2514-8) Bilirubin, UA (test code Negative Negative = 33756-9) Blood, UA (test code = Trace Negative A 08596-4) Nitrite, UA (test code = Negative Negative 5802-4) Leukocytes, UA (test Negative Negative code = 5799-2) Urobilinogen, UA (test 0.2 mg/dL 0.2-1.0 code = 09996-3) Bacteria, UA (test code None Seen = 45680-1) RBC, UA (test code = <5 See_Comment [Autom ated message] 799-7) The system RECESS. generated this result transmit josé luis reference range : /HPF. The refer ence range was not u sed to interpret th is result as normal/abnormal . WBC, UA (test code = None Seen See_Comment [Autom ated message] 24788-8) The system RECESS. generated this result transmit josé luis reference range : /HPF. The refer ence range was not u sed to interpret th is result as normal/abnormal . SQUAMOUS EPITHELIAL <5 See_Comment [Automa josé luis message] (test code = 76639-7) The sy stem which generated this result transmit josé luis reference range : /HPF. The refer ence range was not u sed to interpret th is result as normal/abnormal . Specimen Source (test code = 2795) Lab Interpretation (test Abnormal code = 91640-4) [facility]FLEX URINE [id number] 17:44:00 Test Item Value Reference Range Interpretation [...] 1663) SOURCE(BEAKER) (test code = 2795) POCT-GLUCOSE [id number] 16:33:00 Test Item Value Reference Range Interpretation Comments POC-GLUCOSE METER 232 mg/dL 70-110 H : TESTED A T [facility] [address] (BEAKER) (test code [address], = 1538) [facility] 77 478: Housekeeping/Laundry Supervisor/Techni cornelia ID = [id number] for Mily Coy 2D Echo W/Doppler(CW/PW/Color)2020-09-23 14:27:41Ejection FractionSLEH ECHO HEARTLAB MKCKESSON CPACSInterface, External Ris In - 09/23/2020 2:27 PM C DTTransthoracic Echocardiography Report (TTE) Demographics Patient Name FRANDY FORD Date of Study 09/23/2020 MERRITT Gender Male Visit Number [id number] Race Room Number 428 Number Date of 1975 Referring Physician Age 44 year(s) Legal Receptionist Liberty Morales [facility] Interpreting Radha Chung Physician . Procedure Type [...] Gradient: 2.05 mmHg Estimated PASP: 47.75 [facility]/Do[facility](CW/PW/Color)2020-09-23 14:27:41Ejection FractionSLEH ECHO HEARTLAB MKCKESSON CPACSInterface, External Ris In - 09/23/2020 2:27 PM C DTTransthoracic Echocardiography Report (TTE) Demographics Patient Name FRANDY FORD Date of Study 09/23/2020 MERRITT Gender Male Visit Number [id number] Race Room Number 428 Number Date of 1975 Referring Physician Age 44 year(s) Legal Receptionist Liberty BALLARD Interpreting Radha Chung, Physician MD. [...] Gradient: 2.05 mmHg Estimated PASP: 47.75 mmHgCH[facility] W/Doppler(CW/PW/Color)2020-09-23 14:27:41Ejection FractionSLEH ECHO HEARTLAB MKCKESSON CPACSInterface, External Ris In - 09/23/2020 2:27 PM C DTTransthoracic Echocardiography Report (TTE) Demographics Patient Name FRANDY FORD Date of Study 09/23/2020 MERRITT Gender Male Visit Number [id number] Race Room Number 428 Number Date of 1975 Referring Physician Age 44 year(s) Legal Receptionist Liberty BALLARD Interpreting Radha Chung, Physician . [...] Gradient: 2.05 mmHg Estimated PASP: 47.75 mmHgCH[facility] W/Doppler(CW/PW/Color)2020-09-23 14:27:41Ejection FractionSLEH ECHO HEARTLAB MKCKESSON CPACSInterface, External Ris In - 09/23/2020 2:27 PM C DTTransthoracic Echocardiography Report (TTE) Demographics Patient Name FRANDY FORD Date of Study 09/23/2020 MERRITT Gender Male Visit Number [id number] Race Room Number 428 Number Date of 1975 Referring Physician Age 44 year(s) Legal Receptionist Liberty Morales [facility] Interpreting Radha Chung, Physician . Procedure Type [...] Peak Gradient: 2.05 mmHg Estimated PASP: [facility]/Doppler(CW/PW/Color)2020-09-23 14:27:41Ejection FractionSLE ECHO HEARTLAB [facility]2D Echo W/Doppler(CW/PW/Color)2020-09-23 14:27:41Ejection FractionSLE ECHO [facility] Echo W/Doppler(CW/PW/Color) 2020-09-23 14:27:41Ejection FractionSLE ECHO [facility] [id number] 11:54:00 Test Item Value Reference Range Interpretation Comments POC-GLUCOSE METER 133 mg/dL 70-110 H : TESTED A T [facility] 13[address] (BEAKER) (test code [address], = 1538) [facility] 77 478: Housekeeping/Laundry Supervisor/Techni cornelia ID = [id number] for KurMily franklin RAD, FOOT, MIN 3 VIEWS, [id number] 08:48:00Reason for exam:->foot wound [facility] CENTERName: FRANDY FORD : 1975 [...] LacyMDReport Verified Date/Time: 09/23/2020 08:48:33 Reading Location: [facility] Radiology Reading Room POCT-GLUCOSE METER 2020-09-23 08:11:00 Test Item Value Reference Range Interpretation Comments POC-GLUCOSE METER 91 mg/dL 70-110 : TESTED A T [facility] [address] (BEAKER) (test code = [address], 1538) [facility] 77 478: Housekeeping/Laundry Supervisor/Techni cornelia ID = [id number] for Mily Coy Ktokptocgf3808-66-04 08:04:00 Test Item Value Reference Range Interpretation Comments Phosphorus (test code = 3.5 mg/dL 2.5-4.5 2777-1) ISSA (test code = ISSA) Housekeeping/Laundry Supervisor ID - [id number] Lab Interpretation (test Normal code = 81859-8) [facility] 08:04:00 Test Item Value Reference Range Interpretation Comments Phosphorus (test code = 3.5 mg/dL 2.5-4.5 2777-1) ISSA (test code = ISSA) Housekeeping/Laundry Supervisor ID - [id number] Lab Interpretation (test Normal code = 15440-6) [facility]2021-[facility]28 08:04:00 Test Item Value Reference Range Interpretation Comments Phosphorus (test code = 3.5 mg/dL 2.5-4.5 2777-1) ISSA (test code = ISSA) Housekeeping/Laundry Supervisor ID - [id number] Lab Interpretation (test Normal code = 66392-9) [facility]2021-06-28 08:04:00 Test Item Value Reference Range Interpretation Comments Phosphorus (test code = 3.5 mg/dL 2.5-4.5 2777-1) ISSA (test code = ISSA) Housekeeping/Laundry Supervisor ID - [id number] Lab Interpretation (test Normal code = 99586-1) [facility]2021-06-28 08:04:00 Test Item Value Reference Range Interpretation Comments Phosphorus (test code = 3.5 mg/dL 2.5-4.5 2777-1) ISSA (test code = ISSA) Housekeeping/Laundry Supervisor ID - [id number] Lab Interpretation (test Normal code = 86166-7) [facility]00 Test Item Value Reference Range Interpretation Comments Phosphorus (test code = 3.5 mg/dL 2.5-4.5 2777-1) SISA (test code = ISSA) Housekeeping/Laundry Supervisor ID - [id number] Lab Interpretation (test Normal code = 11395-4) [facility] 08:04:00 Test Item Value Reference Range Interpretation Comments Phosphorus (test code = 3.5 mg/dL 2.5-4.5 2777-1) ISSA (test code = ISSA) Housekeeping/Laundry Supervisor ID - [id number] Lab Interpretation (test Normal code = 79919-0) [facility] 08:[facility]:00 Test Item Value Reference Range Interpretation Comments PHOSPHORUS (BEAKER) (test code = 3.5 mg/dL 2.5-4.5 604) Housekeeping/Laundry Supervisor ID - [id number] METABOLIC LLCHF0448-13-08 06:06:00 Test Item Value Reference Range Interpretation [...] S NOT APPLICABLE FOR DIALYSIS PATIEN TS. Housekeeping/Laundry Supervisor ID - [id number] ID - [id number] ID - [id number] ID - [id number] ID - [id number] ID - EWVQ16Hjchwbcx ID - [id number] ID - [id number] ID - HCUV92Tkpolson ID - [id number] 05:56:00 Test Item Value Reference Range Interpretation Comments MAGNESIUM (BEAKER) (test code = 1.5 mg/dL 1.5-3.0 627) Housekeeping/Laundry Supervisor ID - [id number] ID - [id number] ID - [id number] ID - [id number] CBC W/PLT COUNT & AUTO DFBGEIOUABIT5367-19-88 05:39:00 Test Item Value Reference Range Interpretation [...] PERCENT (BEAKER) (test code = 2801) POCT-GLUCOSE [id number] 20:58:00 Test Item Value Reference Range Interpretation Comments POC-GLUCOSE METER 126 mg/dL 70-110 H : TESTED A T SLSL 1317 (BEAKER) (test code [address], = 1538) [facility] 77 478: Housekeeping/Laundry Supervisor/Techni cornelia ID = [id number] for Rachel Branham POCT-GLUCOSE FCPZQ1742-53-24 17:16:00 Test Item Value Reference Range Interpretation Comments POC-GLUCOSE METER 201 mg/dL 70-110 H : TESTED A T SLSL 1317 (BEAKER) (test code [address], = 1538) [facility] 77 478: Housekeeping/Laundry Supervisor/Techni cornelia ID = [id number] for Mily Coy SARS-CoV2/RT-PCR (Asymptomatic ONLY)2020-09-22 12:08:00 Test Item Value Reference Range Interpretation Comments SARS-COV2/RT-PCR Negative Not Detected, Performanc e of the Xpert (test code = Negative, See Xpress 88395-4) external report SARS-CoV-2/F siddhartha/RSV test for linked [...] Fact Sh eet for Healthcare Prov iders: https://www.Mercury Continuity/ Documents/Xpert %20Xpress %79XAMP-FtI-5-F siddhartha-RSV/30 2-4508%20Rev.%2 0B%20HCP% 20Fact%20Sheet. pdf Fact Sheet for Healt hcare Patients: https://www.M[employer] Continuity/ Documents/Xpert %20Xpress %51KKJR-HbA-5-F siddhartha-RSV/30 2-4507%20Rev.%2 0B%20Pati ent%20Fact%20Sh eet.pdf SARS-COV-2 SLSL Performed at:[facility] PERFORMING LAB [facility] equwdo1573 (test code = Ignacio Nelson 22411-5) [place] [address] ph: [phone] [facility] (Asymptomatic ONLY)2020-09-22 12:08:00 Test Item Value Reference Range Interpretation Comments SARS-COV2/RT-PCR Negative Not Detected, Performanc e of the Xpert (test code = Negative, See Xpress 05722-6) external report SARS-CoV-2/F siddhartha/RSV test for linked [...] Fact Sh eet for Healthcare Prov iders: https://www.MuckRock.EZ4U/ Documents/Xpert %20Xpress %11YXFW-GlC-4-F siddhartha-RSV/30 2-4508%20Rev.%2 0B%20HCP% 20Fact%20Sheet. pdf Fact Sheet for Healt hcare Patients: https://www.MuckRock.EZ4U/ Documents/Xpert %20Xpress %95MFSR-DxT-6-F siddhartha-RSV/30 2-4507%20Rev.%2 0B%20Pati ent%20Fact%20Sh eet.pdf SARS-COV-2 SLSL Performed at:[facility] PERFORMING LAB [address] (test code = Ignacio Nelson 73484-1) [place] [address] ph: [phone] [facility]/RT-PCR (Asymptomatic ONLY)2020-09-22 12:08:00 Test Item Value Reference Range Interpretation Comments SARS-COV2/RT-PCR Negative Not Detected, Performanc e of the Xpert (test code = Negative, See Xpress 03221-4) external report SARS-CoV-2/F isddhartha/RSV test for linked test has only bee [...] Fact Sh eet for Healthcare Prov iders: https://www.MuckRock.EZ4U/ Documents/Xpert %20Xpress %55DTES-FgZ-6-F siddhartha-RSV/30 2-4508%20Rev.%2 0B%20HCP% 20Fact%20Sheet. pdf Fact Sheet for Healt hcare Patients: https://www.MuckRock.EZ4U/ Documents/Xpert %20Xpress %58MRCR-LsM-0-F siddhartha-RSV/30 2-4507%20Rev.%2 0B%20Pati ent%20Fact%20Sh eet.pdf SARS-COV-2 SLSL Performed at:[facility] PERFORMING LAB [place] ryvoqb0018 (test code = Ignacio Nelson 57347-9) [place] [address] ph: [phone] [facility]/RT-PCR (Asymptomatic ONLY)2020-09-22 12:08:00 Test Item Value Reference Range Interpretation Comments SARS-COV2/RT-PCR Negative Not Detected, Performanc e of the Xpert (test code = Negative, See Xpress 48883-6) external report SARS-CoV-2/F siddhartha/RSV test for linked [...] Fact Sh eet for Healthcare Prov iders: https://www.MuckRock.EZ4U/ Documents/Xpert %20Xpress %78NRTR-NvH-5-F siddhartha-RSV/30 2-4508%20Rev.%2 0B%20HCP% 20Fact%20Sheet. pdf Fact Sheet for Healt hcare Patients: https://www.MuckRock.EZ4U/ Documents/Xpert %20Xpress %72EPGY-HnQ-9-F siddhartha-RSV/30 2-4507%20Rev.%2 0B%20Pati ent%20Fact%20Sh eet.pdf SARS-COV-2 SLSL Performed at:[facility] PERFORMING LAB [facility] [id number] (test code = Ignacio Nelson 74881-0) [place] [address] ph: [phone] [facility]/RT-PCR (Asymptomatic ONLY)2020-09-22 12:08:00 Test Item Value Reference Range Interpretation Comments SARS-COV2/RT-PCR Negative Not Detected, Performanc e of the Xpert (test code = Negative, See Xpress 18933-1) external report SARS-CoV-2/F siddhartha/RSV test for linked [...] Fact Sh eet for Healthcare Prov iders: https://www.MuckRock.EZ4U/ Documents/Xpert %20Xpress %82YTXK-MkR-9-F siddhartha-RSV/30 2-4508%20Rev.%2 0B%20HCP% 20Fact%20Sheet. pdf Fact Sheet for Healt hcare Patients: https://www.MuckRock.EZ4U/ Documents/Xpert %20Xpress %57GGHC-TzP-3-F siddhartha-RSV/30 2-4507%20Rev.%2 0B%20Pati ent%20Fact%20Sh eet.pdf SARS-COV-2 SLSL Performed at:[facility] PERFORMING LAB [place] [address] rahkog1699 (test code = Ignacio Nelson 03109-7) [place], [place] [address] ph: [phone] [facility]/RT-PCR (Asymptomatic ONLY)2020-09-22 12:08:00 Test Item Value Reference Range Interpretation Comments SARS-COV2/RT-PCR Negative Not Detected, Performanc e of the Xpert (test code = Negative, See Xpress 62457-2) external report SARS-CoV-2/F siddhartha/RSV test for linked [...] Fact Sh eet for Healthcare Prov iders: https://www.Mercury Continuity/ Documents/Xpert %20Xpress %62IUJA-RnH-2-F siddhartha-RSV/30 2-4508%20Rev.%2 0B%20HCP% 20Fact%20Sheet. pdf Fact Sheet for Healt hcare Patients: https://www.Mercury Continuity/ Documents/Xpert %20Xpress %74XBTI-IhE-4-F siddhartha-RSV/30 2-4507%20Rev.%2 0B%20Pati ent%20Fact%20Sh eet.pdf SARS-COV-2 SLSL Performed at:[facility] PERFORMING LAB [facility]1317 (test code = Ignacio Nelson 58073-6) [place] [address] ph: [phone] [facility]/RT-PCR (Asymptomatic ONLY)2020-09-22 12:08:00 Test Item Value Reference Range Interpretation Comments SARS-COV2/RT-PCR Negative Not Detected, Performanc e of the Xpert (test code = Negative, See Xpress 14005-1) external report SARS-CoV-2/F siddhartha/RSV test for linked [...] Fact Sh eet for Healthcare Prov iders: https://www.Maritime Broadbandid.com/ Documents/Xpert %20Xpress %97JSGL-DgS-6-F siddhartha-RSV/30 2-4508%20Rev.%2 0B%20HCP% 20Fact%20Sheet. pdf Fact Sheet for Healt hcare Patients: https://www.cep heid.com/ Documents/Xpert %20Xpress %91VBZN-WmF-9-F siddhartha-RSV/30 2-4507%20Rev.%2 0B%20Pati ent%20Fact%20Sh eet.pdf SARS-COV-2 SLSL Performed at:[facility] PERFORMING LAB [address] fine1317 (test code = Ignacio Nelson 30964-6) [place] [address] ph: [phone] [facility]-COV2/RT-PCR ([facility])2020-09-22 12:08:00 Test Item Value Reference Range Interpretation Comments SARS-COV2/RT-PCR Negative Not Detected, Performanc e of the Xpert (test code = Negative, See Xpress 3468291) external report SARS-CoV-2/F siddhartha/RSV test for linked [...] sooner.Fact She et for Healthcare Prov iders: https://www.Mercury Continuity/ Documents/Xpert %20Xpress %65QVHH-SdT-1-F siddhartha-RSV/30 2-4508%20Rev.%2 0B%20HCP% 20Fact%20Sheet. pdfFact Sheet for Healt hcare Patients: https://www.Mercury Continuity/ Documents/Xpert %20Xpress %34SSAH-SfV-2-F siddhartha-RSV/30 2-4507%20Rev.%2 0B%20Pati ent%20Fact%20Sh eet.pdf SARS-COV-2 SLSL Performed at:[facility] PERFORMING LAB [place] [facility] (test code = Pierre Aleta [facility] 7808774) [place] [address] ph: [phone] CBC W/PLT COUNT & AUTO GLKVJOXSDXDL6213-99-55 07:40:00 Test Item Value Reference Range Interpretation [...] H PERCENT (BEAKER) (test code = 2801) PT/xRZX8669-87-36 07:34:00 Test Item Value Reference Interpretation Comments [...] PTT (test code = 28.0 See_Comment Final 54810-4) Information (Auto Output) [Automated message] The system [...] valves. Lab Interpretation Abnormal (test code = 89036-0) [facility]/hJLA7278-88-50 07:34:00 Test Item Value Reference Interpretation Comments [...] PTT (test code = 28.0 See_Comment Final 25498-3) Information (Auto Output) [Automated message] The system [...] valves. Lab Interpretation Abnormal (test code = 61031-9) [facility] US[facility]/aAGB8079-15-93 07:34:00 Test Item Value Reference Interpretation Comments [...] PTT (test code = 28.0 See_Comment Final 02141-1) Information (Auto Output) [Automated message] The system [...] valves. Lab Interpretation Abnormal (test code = 01799-1) [facility] US[facility]T/jFCH7048-68-60 07:34:00 Test Item Value Reference Interpretation Comments [...] PTT (test code = 28.0 See_Comment Final 94369-2) Information (Auto Output) [Automated message] The system [...] valves. Lab Interpretation Abnormal (test code = 65756-2) [facility] USCPT/hVHV8042-87-08 07:34:00 Test Item Value Reference Interpretation Comments [...] PTT (test code = 28.0 See_Comment Final 53858-3) Information (Auto Output) [Automated message] The system [...] valves. Lab Interpretation Abnormal (test code = 24332-3) [facility] USCPT/hWHR1688-75-69 07:34:00 Test Item Value Reference Interpretation Comments [...] PTT (test code = 28.0 See_Comment Final 67837-6) Information (Auto Output) [Automated message] The system [...] valves. Lab Interpretation Abnormal (test code = 45383-9) [facility]/ySOO7598-29-47 07:34:00 Test Item Value Reference Interpretation Comments [...] PTT (test code = 28.0 See_Comment Final 74357-2) Information (Auto Output) [Automated message] The system [...] valves. Lab Interpretation Abnormal (test code = 12609-2) [facility]/BFVY6257-54-90 07:34:00 Test Item Value Reference Range Interpretation Comments PROTIME (BEAKER) (test 14.2 seconds 9.3-12.0 H Final Information code = 759) (Auto Output) INR (BEAKER) (test 1.30 See_Comment Final Inf ormation code = 370) (Auto Output) [Automated mess age] The system RECESS. generated this result transmit josé luis reference [...] 0-100 H (BEAKER) (test code = 700) Housekeeping/Laundry Supervisor ID - [id number] W2443-34-49 07:29:00 Test Item Value Reference Range Interpretation Comments Troponin I (test code = 0.05 ng/mL 0-0.15 16473-6) ISSA (test code = ISSA) Troponin I [...] [id number] Lab Interpretation (test Normal code = 57449-7) [facility] USCT[facility] [id number] 07:29:00 Test Item Value Reference Range Interpretation Comments Troponin I (test code = 0.05 ng/mL 0-0.15 08980-9) ISSA (test code = ISSA) Troponin I [...] failure, acidosis, acute neurological disease, and persistent tachyarrhythmia.[facility] ID - [id number] Lab Interpretation (test Normal code = 00131-6) [facility] [id number] 07:29:00 Test Item Value Reference Range Interpretation Comments Troponin I (test code = 0.05 ng/mL 0-0.15 70655-2) ISSA (test code = ISSA) Troponin I [...] failure, acidosis, acute neurological disease, and persistent tachyarrhythmia.[facility] ID - [id number] Lab Interpretation (test Normal code = 34478-6) [facility] [id number] 07:29:00 Test Item Value Reference Range Interpretation Comments Troponin I (test code = 0.05 ng/mL 0-0.15 78379-4) ISSA (test code = ISSA) Troponin I [...] failure, acidosis, acute neurological disease, and persistent tachyarrhythmia.[facility] ID - [id number] Lab Interpretation (test Normal code = 03092-9) [facility] [id number] 07:29:00 Test Item Value Reference Range Interpretation Comments Troponin I (test code = 0.05 ng/mL 0.00-0.15 97054-9) ISSA (test code = ISSA) Troponin I [...] failure, acidosis, acute neurological disease, and persistent tachyarrhythmia.[facility] ID - [id number] Lab Interpretation (test Normal code = 31007-8) [facility] [id number] 07:29:00 Test Item Value Reference Range Interpretation Comments Troponin I (test code = 0.05 ng/mL 0.00-0.15 61941-6) ISSA (test code = ISSA) Troponin I [...] failure, acidosis, acute neurological disease, and persistent tachyarrhythmia.[facility] ID - [id number] Lab Interpretation (test Normal code = 27918-9) [facility] [id number] 07:29:00 Test Item Value Reference Range Interpretation Comments Troponin I (test code = 0.05 ng/mL 0.00-0.15 91452-0) ISSA (test code = ISSA) Troponin I [...] failure, acidosis, acute neurological disease, and persistent tachyarrhythmia.[facility] ID - [id number] Lab Interpretation (test Normal code = 64328-5) [facility] [id number] 07:29:00 Test Item Value Reference Range Interpretation [...] failure, acidosis, acute neurological disease, and persistent tachyarrhythmia.Housekeeping/Laundry Supervisor ID - [id number] METABOLIC [id number] 07:25:00 Test Item Value Reference Range Interpretation [...] S NOT APPLICABLE FOR DIALYSIS PATIEN TS. Housekeeping/Laundry Supervisor ID - [id number] ID - [id number] ID - [id number] ID - nzzt41Cqwhcxtw ID - nxra62Ozdvedsh ID - rjlx26Evlckazy ID - lkgf94Efdhkbdo ID - efdw02Eojzqlpg ID - zhor09Dxmfcvlp ID - wtcf69Kvmquzef ID - zjjm85Tquzfqyd ID - jkaq33Xodcasrd ID - [id number], CHEST, 1 VIEW, NON IJBS9411-28-40 06:44:00Reason for exam:->SHORTNESS OF BREATHReason for exam:->CHEST PAINShould this be performed at the bedside?->[facility] 1975 Sex: MFINAL [...] 6:44 AMXR chest 1 view portable / umhtemd8524-18-97 06:44:00Interface, External Ris In - 09/22/2020 6:47 [...] cardiomegaly.Signed: Moose Petersen Verified Date/Time: 09/22/2020 06:44:53 [facility] / rfohoqr9421-82-30 06:44:00 Interface, External Ris In - 09/22/2020 [...] Signed: Moose Petersen Verified Date/Time: 09/22/2020 06:44:53 [facility] view portable / nwrpabp1991-36-30 06:44:00 Interface, External Ris In - 09/22/2020 [...] Signed: Moose Petersen Verified Date/Time: 09/22/2020 06:44:53 [facility] view portable / enlpatz1486-15-80 06:44:00 Interface, External Ris In - 09/22/2020 [...] Signed: Moose Petersen Verified Date/Time: 09/22/2020 06:44:53 [facility]EC[facility]KG Eowguqaljclsop0717-76-05 06:40:53 Test Item Value Reference Range Interpretation [...] 74 BPM.Abnormal conduction noted: LAFB.T waves abnormal. [place] is normal. Other findings include: prolonged QTc interval. Clinical Impression: abnormal ECG Lab Interpretation Abnormal (test code = 47604-4) [facility] USCECG/[facility]KG Hjjalffhbtalmf9537-45-62 06:40:53 Test Item Value Reference Range Interpretation [...] 74 BPM.Abnormal conduction noted: LAFB.T waves abnormal. [place] is normal. Other findings include: prolonged QTc interval. Clinical Impression: abnormal ECG Lab Interpretation Abnormal (test code = 93634-9) [facility] USCECG/EKG Drewptppsdjadi8062-94-48 06:40:53 Test Item Value Reference Range Interpretation [...] 74 BPM.Abnormal conduction noted: LAFB.T waves abnormal. [place] is normal. Other findings include: prolonged QTc interval. Clinical Impression: abnormal ECG Lab Interpretation Abnormal (test code = 19741-1) [facility] USCECG/EKG Zwyokkkzqdbayy5997-70-91 06:40:53 Test Item Value Reference Range Interpretation [...] 74 BPM.Abnormal conduction noted: LAFB.T waves abnormal. [place] is normal. Other findings include: prolonged QTc interval. Clinical Impression: abnormal ECG Lab Interpretation Abnormal (test code = 55020-8) [facility] USCECG/EKG Jlsaaokjehqcbr8622-16-45 06:40:53 Test Item Value Reference Range Interpretation [...] 74 BPM.Abnormal conduction noted: LAFB.T waves abnormal. [place] is normal. Other findings include: prolonged QTc interval. Clinical Impression: abnormal ECG Lab Interpretation Abnormal (test code = 93670-4) [facility] USCECG/EKG Qkoepdfrqcdbzx5292-47-54 06:40:53 Test Item Value Reference Range Interpretation [...] 74 BPM.Abnormal conduction noted: LAFB.T waves abnormal. [place] is normal. Other findings include: prolonged QTc interval. Clinical Impression: abnormal ECG Lab Interpretation Abnormal (test code = 83439-5) [facility] USCECG/EKG Gvjkukimqijvud3703-30-75 06:40:53 Test Item Value Reference Range Interpretation [...] 74 BPM.Abnormal conduction noted: LAFB.T waves abnormal. [place] is normal. Other findings include: prolonged QTc interval. Clinical Impression: abnormal ECG Lab Interpretation Abnormal (test code = 45868-8) [facility]-GKJPEXQ3906-77-85 00:00:00Ordered by an unspecified provider.[facility]-RLQQPQW9975-02-02 00:00:00 Ordered by an unspecified provider.[facility]-SCANNED 2020-09-22 00:00:00Ordered by an unspecified provider.[facility]-SOFZCYK4032-13-85 00:00:00Ordered by an unspecified provider.[facility] Description: Natriuretic peptide B [Mass/volume] in Serum or Qceqru7706-51-25 15:06:00 Test Item Value Reference Range Interpretation Comments B-Type Natriuretic Peptide (test 614.6 pg/mL 0.0-100.0 H code = 30747-9) [facility] Description: Natriuretic peptide B [Mass/volume] in Serum or Bqcted3360-42-05 15:06:00 Test Item Value Reference Range Interpretation Comments B-Type Natriuretic Peptide (test 614.6 pg/mL 0.0-100.0 H code = 68918-4) [facility] Description: Natriuretic peptide B [Mass/volume] in Serum or Xpfipl8542-47-54 15:06:00 Test Item Value Reference Range Interpretation Comments B-Type Natriuretic Peptide (test 614.6 pg/mL 0.0-100.0 H code = 68306-0) [facility] Description: Natriuretic peptide B [Mass/volume] in Serum or Sikyzk2502-93-33 15:06:00 Test Item Value Reference Range Interpretation Comments B-Type Natriuretic Peptide (test 614.6 pg/mL 0.0-100.0 H code = 76005-2) [facility] Description: Natriuretic peptide B [Mass/volume] in Serum or Jslpwx5958-62-48 15:06:00 Test Item Value Reference Range Interpretation Comments B-Type Natriuretic Peptide (test 614.6 pg/mL 0.0-100.0 H code = 39383-8) [facility] Description: Natriuretic peptide B [Mass/volume] in Serum or Uqzufj2024-69-54 15:06:00 Test Item Value Reference Range Interpretation Comments B-Type Natriuretic Peptide (test 614.6 pg/mL 0.0-100.0 H code = 39351-8) [facility] Description: Natriuretic peptide B [Mass/volume] in Serum or Qzehty3384-26-62 15:06:00 Test Item Value Reference Range Interpretation Comments B-Type Natriuretic Peptide (test 614.6 pg/mL 0.0-100.0 H code = 52037-2) [facility] Description: Natriuretic peptide B [Mass/volume] in Serum or Udjrbg5889-21-98 15:06:00 Test Item Value Reference Range Interpretation Comments B-Type Natriuretic Peptide (test 614.6 pg/mL 0.0-100.0 H code = 64531-4) [facility] Description: Natriuretic peptide B [Mass/volume] in Serum or Qrjvva0693-78-62 15:06:00 Test Item Value Reference Range Interpretation Comments B-Type Natriuretic Peptide (test 614.6 pg/mL 0.0-100.0 H code = 45411-4) [facility] Description: Natriuretic peptide B [Mass/volume] in Serum or Zklwyb5336-61-82 15:06:00 Test Item Value Reference Range Interpretation Comments B-Type Natriuretic Peptide (test 614.6 pg/mL 0.0-100.0 H code = 72531-9) [facility] Description: Natriuretic peptide B [Mass/volume] in Serum or Ppiqdt3394-13-11 15:06:00 Test Item Value Reference Range Interpretation Comments B-Type Natriuretic Peptide (test 614.6 pg/mL 0.0-100.0 H code = 23948-1) [facility] Description: Natriuretic peptide B [Mass/volume] in Serum or Xpejhv9337-94-30 15:06:00 Test Item Value Reference Range Interpretation Comments B-Type Natriuretic Peptide (test 614.6 pg/mL 0.0-100.0 H code = 74435-7) [facility] Description: Natriuretic peptide B [Mass/volume] in Serum or Oyrirn2934-19-43 15:06:00 Test Item Value Reference Range Interpretation Comments B-Type Natriuretic Peptide (test 614.6 pg/mL 0.0-100.0 H code = 08738-2) [facility] Description: Natriuretic peptide B [Mass/volume] in Serum or Nennaq3603-05-12 15:06:00 Test Item Value Reference Range Interpretation Comments B-Type Natriuretic Peptide (test 614.6 pg/mL 0.0-100.0 H code = 61971-3) [facility] Description: Natriuretic peptide B [Mass/volume] in Serum or Rlmcbw8653-16-59 15:06:00 Test Item Value Reference Range Interpretation Comments B-Type Natriuretic Peptide (test 614.6 pg/mL 0.0-100.0 H code = 11470-7) [facility] Description: Natriuretic peptide B [Mass/volume] in Serum or Bqhofd1008-74-89 15:06:00 Test Item Value Reference Range Interpretation Comments B-Type Natriuretic Peptide (test 614.6 pg/mL 0.0-100.0 H code = 93246-7) [facility] Description: Natriuretic peptide B [Mass/volume] in Serum or Fymkhk9748-78-63 15:06:00 Test Item Value Reference Range Interpretation Comments B-Type Natriuretic Peptide (test 614.6 pg/mL 0.0-100.0 H code = 75296-3) [facility] Description: Natriuretic peptide B [Mass/volume] in Serum or Vfkbav9506-69-19 15:06:00 Test Item Value Reference Range Interpretation Comments B-Type Natriuretic Peptide (test 614.6 pg/mL 0.0-100.0 H code = 66732-2) [facility] Description: Natriuretic peptide B [Mass/volume] in Serum or Dqlfqn7235-17-43 15:06:00 Test Item Value Reference Range Interpretation Comments B-Type Natriuretic Peptide (test 614.6 pg/mL 0.0-100.0 H code = 64096-2) [facility] Description: Natriuretic peptide B [Mass/volume] in Serum or Rmaewk1995-10-42 15:06:00 Test Item Value Reference Range Interpretation Comments B-Type Natriuretic Peptide (test 614.6 pg/mL 0.0-100.0 H code = 54316-6) [facility] Description: Lipid Xvnwo0528-59-33 01:45:00 Test Item Value Reference Range Interpretation Comments Cholesterol, Total (test code = 207 mg/dL 100-199 H 3-3) Triglycerides (test code = 2571-8) 126 mg/dL 0-149 HDL Cholesterol (test code = 37 mg/dL >39 L 5-9) VLDL Cholesterol [place] (test code = 23 mg/dL 5-40 62981-2) LDL Chol Calc (NIH) (test code = 147 mg/dL 0-99 H 70054-0) Comment: (test code = 48308-7) [facility] Description: Lipid [id number] 01:45:00 Test Item Value Reference Range Interpretation Comments Cholesterol, Total (test code = 207 mg/dL 100-199 H 3-3) Triglycerides (test code = 2571-8) 126 mg/dL 0-149 HDL Cholesterol (test code = 37 mg/dL >39 L 2085-9) VLDL Cholesterol Renuka (test code = 23 mg/dL 5-40 72166-6) LDL Chol Calc (NIH) (test code = 147 mg/dL 0-99 H 52289-7) Comment: (test code = 45008-3) [employer] Description: Lipid [id number] 01:45:00 Test Item Value Reference Range Interpretation Comments Cholesterol, Total (test code = 207 mg/dL 100-199 H 3-3) Triglycerides (test code = 2571-8) 126 mg/dL 0-149 HDL Cholesterol (test code = 37 mg/dL >39 L 2085-9) VLDL Cholesterol Renuka (test code = 23 mg/dL 5-40 93730-1) LDL Chol Calc (NIH) (test code = 147 mg/dL 0-99 H 08936-3) Comment: (test code = 84898-4) [employer] [facility] Description: Lipid [id number] 01:45:00 Test Item Value Reference Range Interpretation Comments Cholesterol, Total (test code = 207 mg/dL 100-199 H 3-3) Triglycerides (test code = 2571-8) 126 mg/dL 0-149 HDL Cholesterol (test code = 37 mg/dL >39 L 5-9) VLDL Cholesterol Renuka (test code = 23 mg/dL 5-40 15637-1) LDL Chol Calc (NIH) (test code = 147 mg/dL 0-99 H 72469-7) Comment: (test code = 40284-2) [employer] [facility] Description: Lipid [id number] 01:45:00 Test Item Value Reference Range Interpretation Comments Cholesterol, Total (test code = 207 mg/dL 100-199 H 3-3) Triglycerides (test code = 2571-8) 126 mg/dL 0-149 HDL Cholesterol (test code = 37 mg/dL >39 L 2085-9) VLDL Cholesterol Renuka (test code = 23 mg/dL 5-40 03522-2) LDL Chol Calc (NIH) (test code = 147 mg/dL 0-99 H 84004-3) Comment: (test code = 35259-7) [employer] [facility] Description: Lipid [id number] 01:45:00 Test Item Value Reference Range Interpretation Comments Cholesterol, Total (test code = 207 mg/dL 100-199 H 2093-3) Triglycerides (test code = 2571-8) 126 mg/dL 0-149 HDL Cholesterol (test code = 37 mg/dL >39 L 2085-9) VLDL Cholesterol Renuka (test code = 23 mg/dL 5-40 94512-2) LDL Chol Calc (NIH) (test code = 147 mg/dL 0-99 H 78932-8) Comment: (test code = 77087-9) [employer] [facility] Description: Lipid [id number] 01:45:00 Test Item Value Reference Range Interpretation Comments Cholesterol, Total (test code = 207 mg/dL 100-199 H 2093-3) Triglycerides (test code = 2571-8) 126 mg/dL 0-149 HDL Cholesterol (test code = 37 mg/dL >39 L 5-9) VLDL Cholesterol Renuka (test code = 23 mg/dL 5-40 51498-3) LDL Chol Calc (NIH) (test code = 147 mg/dL 0-99 H 03540-6) Comment: (test code = 96886-9) [employer] [facility] Description: Lipid [id number] 01:45:00 Test Item Value Reference Range Interpretation Comments Cholesterol, Total (test code = 207 mg/dL 100-199 H 2093-3) Triglycerides (test code = 2571-8) 126 mg/dL 0-149 HDL Cholesterol (test code = 37 mg/dL >39 L 5-9) VLDL Cholesterol Renuka (test code = 23 mg/dL 5-40 13534-4) LDL Chol Calc (NIH) (test code = 147 mg/dL 0-99 H 33594-2) Comment: (test code = 41866-9) [employer] Description: Lipid [id number] 01:45:00 Test Item Value Reference Range Interpretation Comments Cholesterol, Total (test code = 207 mg/dL 100-199 H 2093-3) Triglycerides (test code = 2571-8) 126 mg/dL 0-149 HDL Cholesterol (test code = 37 mg/dL >39 L 2085-9) VLDL Cholesterol Renuka (test code = 23 mg/dL 5-40 25854-6) LDL Chol Calc (NIH) (test code = 147 mg/dL 0-99 H 55036-6) Comment: (test code = 06279-7) [facility] Description: Lipid [id number] 01:45:00 Test Item Value Reference Range Interpretation Comments Cholesterol, Total (test code = 207 mg/dL 100-199 H 3-3) Triglycerides (test code = 2571-8) 126 mg/dL 0-149 HDL Cholesterol (test code = 37 mg/dL >39 L 5-9) VLDL Cholesterol Renuka (test code = 23 mg/dL 5-40 51378-9) LDL Chol Calc (NIH) (test code = 147 mg/dL 0-99 H 64342-8) Comment: (test code = 85634-8) [facility] Description: Lipid [id number] 01:45:00 Test Item Value Reference Range Interpretation Comments Cholesterol, Total (test code = 207 mg/dL 100-199 H 3-3) Triglycerides (test code = 2571-8) 126 mg/dL 0-149 HDL Cholesterol (test code = 37 mg/dL >39 L 5-9) VLDL Cholesterol Renuka (test code = 23 mg/dL 5-40 81496-1) LDL Chol Calc (NIH) (test code = 147 mg/dL 0-99 H 49407-0) Comment: (test code = 58110-1) [employer] Description: Lipid [id number] 01:45:00 Test Item Value Reference Range Interpretation Comments Cholesterol, Total (test code = 207 mg/dL 100-199 H 3-3) Triglycerides (test code = 2571-8) 126 mg/dL 0-149 HDL Cholesterol (test code = 37 mg/dL >39 L 5-9) VLDL Cholesterol Renuka (test code = 23 mg/dL 5-40 22734-5) LDL Chol Calc (NIH) (test code = 147 mg/dL 0-99 H 15506-9) Comment: (test code = 40169-1) [facility] Description: Lipid [id number] 01:45:00 Test Item Value Reference Range Interpretation Comments Cholesterol, Total (test code = 207 mg/dL 100-199 H 2093-3) Triglycerides (test code = 2571-8) 126 mg/dL 0-149 HDL Cholesterol (test code = 37 mg/dL >39 L 5-9) VLDL Cholesterol Renuka (test code = 23 mg/dL 5-40 06306-2) LDL Chol Calc (NIH) (test code = 147 mg/dL 0-99 H 97099-4) Comment: (test code = 34748-3) [facility] Description: Lipid [id number] 01:45:00 Test Item Value Reference Range Interpretation Comments Cholesterol, Total (test code = 207 mg/dL 100-199 H 3-3) Triglycerides (test code = 2571-8) 126 mg/dL 0-149 HDL Cholesterol (test code = 37 mg/dL >39 L 2084-9) VLDL Cholesterol Renuka (test code = 23 mg/dL 5-40 90130-4) LDL Chol Calc (NIH) (test code = 147 mg/dL 0-99 H 32915-4) Comment: (test code = 02663-6) [facility] Description: Lipid [id number] 01:45:00 Test Item Value Reference Range Interpretation Comments Cholesterol, Total (test code = 207 mg/dL 100-199 H 3-3) Triglycerides (test code = 2571-8) 126 mg/dL 0-149 HDL Cholesterol (test code = 37 mg/dL >39 L 2084-9) VLDL Cholesterol Renuka (test code = 23 mg/dL 5-40 79782-7) LDL Chol Calc (NIH) (test code = 147 mg/dL 0-99 H 47365-5) Comment: (test code = 96632-7) [facility] Description: Lipid [id number] 01:45:00 Test Item Value Reference Range Interpretation Comments Cholesterol, Total (test code = 207 mg/dL 100-199 H 3-3) Triglycerides (test code = 2571-8) 126 mg/dL 0-149 HDL Cholesterol (test code = 37 mg/dL >39 L 5-9) VLDL Cholesterol Renuka (test code = 23 mg/dL 5-40 06093-1) LDL Chol Calc (NIH) (test code = 147 mg/dL 0-99 H 27218-1) Comment: (test code = 48173-9) [facility] Description: Lipid [id number] 01:45:00 Test Item Value Reference Range Interpretation Comments Cholesterol, Total (test code = 207 mg/dL 100-199 H 3-3) Triglycerides (test code = 2571-8) 126 mg/dL 0-149 HDL Cholesterol (test code = 37 mg/dL >39 L 2085-9) VLDL Cholesterol Renuka (test code = 23 mg/dL 5-40 20041-8) LDL Chol Calc (NIH) (test code = 147 mg/dL 0-99 H 87287-8) Comment: (test code = 70255-3) [facility] Description: Lipid [id number] 01:45:00 Test Item Value Reference Range Interpretation Comments Cholesterol, Total (test code = 207 mg/dL 100-199 H 3-3) Triglycerides (test code = 2571-8) 126 mg/dL 0-149 HDL Cholesterol (test code = 37 mg/dL >39 L 2085-9) VLDL Cholesterol Renuka (test code = 23 mg/dL 5-40 33036-9) LDL Chol Calc (NIH) (test code = 147 mg/dL 0-99 H 82398-0) Comment: (test code = 38633-1) [facility] Description: Lipid [id number] 01:45:00 Test Item Value Reference Range Interpretation Comments Cholesterol, Total (test code = 207 mg/dL 100-199 H 3-3) Triglycerides (test code = 2571-8) 126 mg/dL 0-149 HDL Cholesterol (test code = 37 mg/dL >39 L 5-9) VLDL Cholesterol Renuka (test code = 23 mg/dL 5-40 70605-7) LDL Chol Calc (NIH) (test code = 147 mg/dL 0-99 H 21757-6) Comment: (test code = 58350-7) [facility] Description: Lipid [id number] 01:45:00 Test Item Value Reference Range Interpretation Comments Cholesterol, Total (test code = 207 mg/dL 100-199 H 3-3) Triglycerides (test code = 2571-8) 126 mg/dL 0-149 HDL Cholesterol (test code = 37 mg/dL >39 L 2085-9) VLDL Cholesterol Renuka (test code = 23 mg/dL 5-40 38284-0) LDL Chol Calc (NIH) (test code = 147 mg/dL 0-99 H 29212-8) Comment: (test code = 71009-9) [facility] (14)2020-08-16 01:19:00 Test Item Value Reference Range Interpretation Comments Glucose (test code 424 mg/dL 65-99 H = 2345-7) BUN (test code = 27 mg/dL 6-24 H 3094-0) Creatinine (test 1.88 mg/dL 0.76-1.27 H code = 2160-0) eGFR If NonAfricn 42 >59 L Am (test code = mL/min/1.73 98758-5) eGFR If Africn Am 48 >59 L [facility] currently (test code = mL/min/1[place]73 [place] [address]-4) compliance with the current recommendations of the National Kidney Foundation. [place] will update re porting as new guidelin es are published from the NKF-ASN Task force.
<br/ >Perfor med by:
[facility] [place] (HD)

BUN/Creatinine 14 9-20 Ratio (test code = 3097-3) Sodium (test code = 138 mmol/L 764-912 3574-2) Potassium (test 4.2 mmol/L 3.5-5.2 code = 2823-3) Chloride (test code 98 mmol/L 96-106 = 2075-0) Carbon Dioxide, 28 mmol/L 20-29 Total (test code = 2027-) Calcium (test code 8.4 mg/dL 8.7-10.2 L = 73987-2) Protein, Total 6.1 g/dL 6.0-8.5 (test code = 2885-2) Albumin (test code 3.0 g/dL 4.0-5.0 L = 1751-7) Globulin, Total 3.1 g/dL 1.5-4.5 (test code = 00587-1) A/G Ratio (test 1.0 1.2-2.2 L code = 1759-0) Bilirubin, Total 0.6 mg/dL 0.0-1.2 (test code = 1975-2) Alkaline 130 IU/L 48-121 H Phosphatase (test Pl ease note code = 6768-6) reference int erval change
<b r/>Perf ormed by:
[facility] ([place])

AST (SGOT) (test 15 IU/L 0-40 code = 1920-8) ALT (SGPT) (test 18 IU/L 0-44 code = 1742-6) [facility] (14)2020-08-16 01:19:00 Test Item Value Reference Range Interpretation Comments Glucose (test code 424 mg/dL 65-99 H = 2345-7) BUN (test code = 27 mg/dL 6-24 H 3094-0) Creatinine (test 1.88 mg/dL 0.76-1.27 H code = 2160-0) eGFR If NonAfricn 42 >59 L Am (test code = mL/min/1.73 63376-1) eGFR If Africn Am 48 >59 L [facility] currently (test code = mL/min/1.73 [place] [address]-8) compliance with the current recommendations of the National Kidney Foundation. [place] will update re porting as new guidelin es are published from the NKF-ASN Task force.
<br/ >Perfor med by:
[facility] (HD)

BUN/Creatinine 14 9-20 Ratio (test code = 3097-3) Sodium (test code = 138 mmol/L 622-200 2134-2) Potassium (test 4.2 mmol/L 3.5-5.2 code = 2823-3) Chloride (test code 98 mmol/L 96-106 = 2075-0) Carbon Dioxide, 28 mmol/L 20-29 Total (test code = 2027-9) Calcium (test code 8.4 mg/dL 8.7-10.2 L = 24501-7) Protein, Total 6.1 g/dL 6.0-8.5 (test code = 2885-2) Albumin (test code 3.0 g/dL 4.0-5.0 L = 1751-7) Globulin, Total 3.1 g/dL 1.5-4.5 (test code = 56838-6) A/G Ratio (test 1.0 1.2-2.2 L code [...] >59 L Am (test code = mL/min/1.73 59760-3) eGFR If Africn Am 48 >59 L [facility] currently (test code = mL/min/1.73 [place] [address]-8) compliance with the current recommendations of the National Kidney Foundation. [place] will update re porting as new guidelin es are published from the NKF-ASN Task force.
<br/ >Perfor med by:
[facility] (HD)

BUN/Creatinine 14 9-20 Ratio (test code = 3097-3) Sodium (test code = 138 mmol/L 540-330 0477-2) Potassium (test 4.2 mmol/L 3.5-5.2 code = 2823-3) Chloride (test code 98 mmol/L 96-106 = 2075-0) Carbon Dioxide, 28 mmol/L 20-29 Total (test code = 2027-9) Calcium (test code 8.4 mg/dL 8.7-10.2 L = 94450-0) Protein, Total 6.1 g/dL 6.0-8.5 (test code = 2885-2) Albumin (test code 3.0 g/dL 4.0-5.0 L = 1751-7) Globulin, Total 3.1 g/dL 1.5-4.5 (test code = 76294-8) A/G Ratio (test 1.0 1.2-2.2 L code = 1759-0) Bilirubin, Total 0.6 mg/dL 0.0-1.2 (test code = 1975-2) Alkaline 130 IU/L 48-121 H Phosphatase (test Pl ease note code = 6768-6) reference int erval change
<b r/>Perf ormed by:
[facility] ([place])

AST (SGOT) (test 15 IU/L 0-40 code = 1920-8) ALT (SGPT) (test 18 IU/L 0-44 code = 1742-6) [facility] Description: Comp. Metabolic Panel (14)2020-08-16 01:19:00 Test Item Value Reference Range Interpretation Comments Glucose (test code 424 mg/dL 65-99 H = 2345-7) BUN (test code = 27 mg/dL 6-24 H 3094-0) Creatinine (test 1.88 mg/dL 0.76-1.27 H code = 2160-0) eGFR If NonAfricn 42 >59 L Am (test code = mL/min/1.73 40096-0) eGFR If Africn Am 48 >59 L [facility] currently (test code = mL/min/1.73 [place] [address]-0) compliance with the current recommendations of the National Kidney Foundation. [place] will update re porting as new guidelin es are published from the NKF-ASN Task force.
<br/ >Perfor med by:
[facility] ([place])

BUN/Creatinine 14 9-20 Ratio (test code = 3097-3) Sodium (test code = 138 mmol/L 781-169 9246-2) Potassium (test 4.2 mmol/L 3.5-5.2 code = 2823-3) Chloride (test code 98 mmol/L 96-106 = 2075-0) Carbon Dioxide, 28 mmol/L 20-29 Total (test code = 2027-9) Calcium (test code 8.4 mg/dL 8.7-10.2 L = 15794-5) Protein, Total 6.1 g/dL 6.0-8.5 (test code = 2885-2) Albumin (test code 3.0 g/dL 4.0-5.0 L = 1751-7) Globulin, Total 3.1 g/dL 1.5-4.5 (test code = 93944-3) A/G Ratio (test 1.0 1.2-2.2 L code = 1759-0) Bilirubin, Total 0.6 mg/dL 0.0-1.2 (test code = 1974-2) Alkaline 130 IU/L 48-121 H Phosphatase (test Pl ease note code = 6768-6) reference int erval change
<b r/>Perf ormed by:
[facility] ([place])

AST (SGOT) (test 15 IU/L 0-40 code = 1920-8) ALT (SGPT) (test 18 IU/L 0-44 code = 1742-6) [facility] Description: Comp. Metabolic Panel (14)2020-08-16 01:19:00 Test Item Value Reference Range Interpretation Comments Glucose (test code 424 mg/dL 65-99 H = 2345-7) BUN (test code = 27 mg/dL 6-24 H 3094-0) Creatinine (test 1.88 mg/dL 0.76-1.27 H code = 2160-0) eGFR If NonAfricn 42 >59 L Am (test code = mL/min/1.73 77220-6) eGFR If Africn Am 48 >59 L [facility] currently (test code = mL/min/1.73 [place] 57431-4) compliance with the current recommendations of the National Kidney Foundation. [place] will update re porting as new guidelin es are published from the NKF-ASN Task force.
<br/ >Perfor med by:
[facility] ([place])

BUN/Creatinine 14 9-20 Ratio (test code = 3097-3) Sodium (test code = 138 mmol/L 778-369 9604-2) Potassium (test 4.2 mmol/L 3.5-5.2 code = 2823-3) Chloride (test code 98 mmol/L 96-106 = 2075-0) Carbon Dioxide, 28 mmol/L 20-29 Total (test code = 2027-9) Calcium (test code 8.4 mg/dL 8.7-10.2 L = 48222-7) Protein, Total 6.1 g/dL 6.0-8.5 (test code = 2885-2) Albumin (test code 3.0 g/dL 4.0-5.0 L = 1751-7) Globulin, Total 3.1 g/dL 1.5-4.5 (test code = 81447-0) A/G Ratio (test 1.0 1.2-2.2 L code = 1759-0) Bilirubin, Total 0.6 mg/dL 0.0-1.2 (test code = 1974-2) Alkaline 130 IU/L 48-121 H Phosphatase (test Pl ease note code = 6768-6) reference int erval change
<b r/>Perf ormed by:
[facility] ([place])

AST (SGOT) (test 15 IU/L 0-40 code = 1920-8) ALT (SGPT) (test 18 IU/L 0-44 code = 1742-6) [facility] Description: Comp. Metabolic Panel (14)2020-08-16 01:19:00 Test Item Value Reference Range Interpretation Comments Glucose (test code 424 mg/dL 65-99 H = 2345-7) BUN (test code = 27 mg/dL 6-24 H 3094-0) Creatinine (test 1.88 mg/dL 0.76-1.27 H code = 2160-0) eGFR If NonAfricn 42 >59 L Am (test code = mL/min/1.73 66196-2) eGFR If Africn Am 48 >59 L [facility] currently (test code = mL/min/1.73 [place] [address]-0) compliance with the current recommendations of the National Kidney Foundation. [place] will update re porting as new guidelin es are published from the NKF-ASN Task force.
<br/ >Perfor med by:
[facility] ([place])

BUN/Creatinine 14 9-20 Ratio (test code = 3097-3) Sodium (test code = 138 mmol/L 666-501 8012-2) Potassium (test 4.2 mmol/L 3.5-5.2 code = 2823-3) Chloride (test code 98 mmol/L 96-106 = 2075-0) Carbon Dioxide, 28 mmol/L 20-29 Total (test code = 2027-9) Calcium (test code 8.4 mg/dL 8.7-10.2 L = 63175-6) Protein, Total 6.1 g/dL 6.0-8.5 (test code = 2885-2) Albumin (test code 3.0 g/dL 4.0-5.0 L = 1751-7) Globulin, Total 3.1 g/dL 1.5-4.5 (test code = 09386-3) A/G Ratio (test 1.0 1.2-2.2 L code = 1759-0) Bilirubin, Total 0.6 mg/dL 0.0-1.2 (test code = 1975-2) Alkaline 130 IU/L 48-121 H Phosphatase (test Pl ease note code = 6768-6) reference int erval change
<b r/>Perf ormed by:
[facility] ([place])

AST (SGOT) (test 15 IU/L 0-40 code = 1920-8) ALT (SGPT) (test 18 IU/L 0-44 code = 1742-6) [facility]: Comp[facility] (142020-08-16 01:19:00 Test Item Value Reference Range Interpretation Comments Glucose (test code 424 mg/dL 65-99 H = 2345-7) BUN (test code = 27 mg/dL 6-24 H 3094-0) Creatinine (test 1.88 mg/dL 0.76-1.27 H code = 2160-0) eGFR If NonAfricn 42 >59 L Am (test code = mL/min/1.73 43144-8) eGFR If Africn Am 48 >59 L [facility] currently (test code = mL/min/1.73 [place] 34294-0) compliance with the current recommendations of the National Kidney Foundation. [place] will update re porting as new guidelin es are published from the NKF-ASN Task force.
<br/ >Perfor med by:
[facility] (HD)

BUN/Creatinine 14 9-20 Ratio (test code = 3097-3) Sodium (test code = 138 mmol/L 137-568 7746-2) Potassium (test 4.2 mmol/L 3.5-5.2 code = 2823-3) Chloride (test code 98 mmol/L 96-106 = 2075-0) Carbon Dioxide, 28 mmol/L 20-29 Total (test code = 2027-) Calcium (test code 8.4 mg/dL 8.7-10.2 L = 24806-9) Protein, Total 6.1 g/dL 6.0-8.5 (test code = 2885-2) Albumin (test code 3.0 g/dL 4.0-5.0 L = 1751-7) Globulin, Total 3.1 g/dL 1.5-4.5 (test code = 61118-3) A/G Ratio (test 1.0 1.2-2.2 L code [...] >59 L Am (test code = mL/min/1.73 13402-3) eGFR If Africn Am 48 >59 L [facility] currently (test code = mL/min/1.73 [place] 6[address]-2) compliance with the current recommendations of the National Kidney Foundation. [place] will update re porting as new guidelin es are published from the NKF-ASN Task force.
<br/ >Perfor med by:
[facility] ([place])

BUN/Creatinine 14 9-20 Ratio (test code = 3097-3) Sodium (test code = 138 mmol/L 563-046 3207-2) Potassium (test 4.2 mmol/L 3.5-5.2 code = 2823-3) Chloride (test code 98 mmol/L 96-106 = 2075-0) Carbon Dioxide, 28 mmol/L 20-29 Total (test code = 2027-) Calcium (test code 8.4 mg/dL 8.7-10.2 L = 05854-3) Protein, Total 6.1 g/dL 6.0-8.5 (test code = 2885-2) Albumin (test code 3.0 g/dL 4.0-5.0 L = 1751-7) Globulin, Total 3.1 g/dL 1.5-4.5 (test code = 19288-7) A/G Ratio (test 1.0 1.2-2.2 L code = 1759-0) Bilirubin, Total 0.6 mg/dL 0.0-1.2 (test code = 1975-2) Alkaline 130 IU/L 48-121 H Phosphatase (test Pl ease note code = 6768-6) reference int erval change
<b r/>Perf ormed by:
[facility] ([place])

AST (SGOT) (test 15 IU/L 0-40 code = 1920-8) ALT (SGPT) (test 18 IU/L 0-44 code = 1742-6) [facility] Description: Comp. Metabolic Panel (14)2020-08-16 01:19:00 Test Item Value Reference Range Interpretation Comments Glucose (test code 424 mg/dL 65-99 H = 2345-7) BUN (test code = 27 mg/dL 6-24 H 3094-0) Creatinine (test 1.88 mg/dL 0.76-1.27 H code = 2160-0) eGFR If NonAfricn 42 >59 L Am (test code = mL/min/1.73 79539-1) eGFR If Africn Am 48 >59 L [facility] currently (test code = mL/min/1.73 [place] 35719-7) compliance with the current recommendations of the National Kidney Foundation. [place] will update re porting as new guidelin es are published from the NKF-ASN Task force.
<br/ >Perfor med by:
[facility] [place] (HD)

BUN/Creatinine 14 9-20 Ratio (test code = 3097-3) Sodium (test code = 138 mmol/L 538-132 6606-2) Potassium (test 4.2 mmol/L 3.5-5.2 code = 2823-3) Chloride (test code 98 mmol/L 96-106 = 2075-0) Carbon Dioxide, 28 mmol/L 20-29 Total (test code = 2027-) Calcium (test code 8.4 mg/dL 8.7-10.2 L = 38262-7) Protein, Total 6.1 g/dL 6.0-8.5 (test code = 2885-2) Albumin (test code 3.0 g/dL 4.0-5.0 L = 1751-7) Globulin, Total 3.1 g/dL 1.5-4.5 (test code = 63135-7) A/G Ratio (test 1.0 1.2-2.2 L code = 1759-0) Bilirubin, Total 0.6 mg/dL 0.0-1.2 (test code = 1975-2) Alkaline 130 IU/L 48-121 H Phosphatase (test Pl ease note code = 6768-6) reference int erval change
<b r/>Perf ormed by:
[facility] ([place])

AST (SGOT) (test 15 IU/L 0-40 code = 1920-8) ALT (SGPT) (test 18 IU/L 0-44 code = 1742-6) [facility] (14)2020-08-16 01:19:00 Test Item Value Reference Range Interpretation Comments Glucose (test code 424 mg/dL 65-99 H = 2345-7) BUN (test code = 27 mg/dL 6-24 H 3094-0) Creatinine (test 1.88 mg/dL 0.76-1.27 H code = 2160-0) eGFR If NonAfricn 42 >59 L Am (test code = mL/min/1.73 51149-5) eGFR If Africn Am 48 >59 L [facility] currently (test code = mL/min/1.73 [place] [address]-6) compliance with the current recommendations of the National Kidney Foundation. [place] will update re porting as new guidelin es are published from the NKF-ASN Task force.
<br/ >Perfor med by:
[facility] (HD)

BUN/Creatinine 14 9-20 Ratio (test code = 3097-3) Sodium (test code = 138 mmol/L 837-113 4036-2) Potassium (test 4.2 mmol/L 3.5-5.2 code = 2823-3) Chloride (test code 98 mmol/L 96-106 = 2075-0) Carbon Dioxide, 28 mmol/L 20-29 Total (test code = 2027-) Calcium (test code 8.4 mg/dL 8.7-10.2 L = 61594-5) Protein, Total 6.1 g/dL 6.0-8.5 (test code = 2885-2) Albumin (test code 3.0 g/dL 4.0-5.0 L = 1751-7) Globulin, Total 3.1 g/dL 1.5-4.5 (test code = 16395-2) A/G Ratio (test 1.0 1.2-2.2 L code = 1759-0) Bilirubin, Total 0.6 mg/dL 0.0-1.2 (test code = 1975-2) Alkaline 130 IU/L 48-121 H Phosphatase (test Pl ease note code = 6768-6) reference int erval change
<b r/>Perf ormed by:
[facility] ([place])

AST (SGOT) (test 15 IU/L 0-40 code = 1920-8) ALT (SGPT) (test 18 IU/L 0-44 code = 1742-6) [facility]: [facility] (14)2020-08-16 01:19:00 Test Item Value Reference Range Interpretation Comments Glucose (test code 424 mg/dL 65-99 H = 2345-7) BUN (test code = 27 mg/dL 6-24 H 3094-0) Creatinine (test 1.88 mg/dL 0.76-1.27 H code = 2160-0) eGFR If NonAfricn 42 >59 L Am (test code = mL/min/1.73 00794-6) eGFR If Africn Am 48 >59 L [facility] currently (test code = mL/min/1.73 [place] [address]-3) compliance with the current recommendations of the [employer]. [facility] [place] will update re porting as new guidelin es are published from the NKF-ASN Task force.
<br/ >Perfor med by:
[facility] (HD)

BUN/Creatinine 14 9-20 Ratio (test code = 3097-3) Sodium (test code = 138 mmol/L 288-169 5239-2) Potassium (test 4.2 mmol/L 3.5-5.2 code = 2823-3) Chloride (test code 98 mmol/L 96-106 = 2075-0) Carbon Dioxide, 28 mmol/L 20-29 Total (test code = 2027-9) Calcium (test code 8.4 mg/dL 8.7-10.2 L = 07190-2) Protein, Total 6.1 g/dL 6.0-8.5 (test code = 2885-2) Albumin (test code 3.0 g/dL 4.0-5.0 L = 1751-7) Globulin, Total 3.1 g/dL 1.5-4.5 (test code = 67506-1) A/G Ratio (test 1.0 1.2-2.2 L code = 1759-0) Bilirubin, Total 0.6 mg/dL 0.0-1.2 (test code = 1975-2) Alkaline 130 IU/L 48-121 H Phosphatase (test Pl ease note code = 6768-6) reference int erval change
<b r/>Perf ormed by:
[facility] ([place])

AST (SGOT) (test 15 IU/L 0-40 code = 1920-8) ALT (SGPT) (test 18 IU/L 0-44 code = 1742-6) [facility]: [facility] (14)2020-08-16 01:19:00 Test Item Value Reference Range Interpretation Comments Glucose (test code 424 mg/dL 65-99 H = 2345-7) BUN (test code = 27 mg/dL 6-24 H 3094-0) Creatinine (test 1.88 mg/dL 0.76-1.27 H code = 2160-0) eGFR If NonAfricn 42 >59 L Am (test code = mL/min/1.73 86754-6) eGFR If Africn Am 48 >59 L [facility] currently (test code = mL/min/1.73 [place] [address]-8) compliance with the current recommendations of the [employer]. [facility] [place] will update re porting as new guidelin es are published from the NKF-ASN Task force.
<br/ >Perfor med by:
[facility] (HD)

BUN/Creatinine 14 9-20 Ratio (test code = 3097-3) Sodium (test code = 138 mmol/L 260-334 8687-2) Potassium (test 4.2 mmol/L 3.5-5.2 code = 2823-3) Chloride (test code 98 mmol/L 96-106 = 2075-0) Carbon Dioxide, 28 mmol/L 20-29 Total (test code = 2027-9) Calcium (test code 8.4 mg/dL 8.7-10.2 L = 00199-5) Protein, Total 6.1 g/dL 6.0-8.5 (test code = 2885-2) Albumin (test code 3.0 g/dL 4.0-5.0 L = 1751-7) Globulin, Total 3.1 g/dL 1.5-4.5 (test code = 17607-5) A/G Ratio (test 1.0 1.2-2.2 L code = 1759-0) Bilirubin, Total 0.6 mg/dL 0.0-1.2 (test code = 1975-2) Alkaline 130 IU/L 48-121 H Phosphatase (test Pl ease note code = 6768-6) reference int erval change
<b r/>Perf ormed by:
[facility] ([place])

AST (SGOT) (test 15 IU/L 0-40 code = 1920-8) ALT (SGPT) (test 18 IU/L 0-44 code = 1742-6) [facility] (14)2020-08-16 01:19:00 Test Item Value Reference Range Interpretation Comments Glucose (test code 424 mg/dL 65-99 H = 2345-7) BUN (test code = 27 mg/dL 6-24 H 3094-0) Creatinine (test 1.88 mg/dL 0.76-1.27 H code = 2160-0) eGFR If NonAfricn 42 >59 L Am (test code = mL/min/1.73 98009-7) eGFR If Africn Am 48 >59 L [facility] currently (test code = mL/min/1.73 [place] [address]-0) compliance with the current recommendations of the National Kid[employer] Foundation. [place] will update re porting as new guidelin es are published from the NKF-ASN Task force.
<br/ >Perfor med by:
[facility] [place] ([place])

BUN/Creatinine 14 9-20 Ratio (test code = 3097-3) Sodium (test code = 138 mmol/L 353-833 2738-2) Potassium (test 4.2 mmol/L 3.5-5.2 code = 2823-3) Chloride (test code 98 mmol/L 96-106 = 2075-0) Carbon Dioxide, 28 mmol/L 20-29 Total (test code = 2027-9) Calcium (test code 8.4 mg/dL 8.7-10.2 L = 08964-6) Protein, Total 6.1 g/dL 6.0-8.5 (test code = 2885-2) Albumin (test code 3.0 g/dL 4.0-5.0 L = 1751-7) Globulin, Total 3.1 g/dL 1.5-4.5 (test code = 90438-8) A/G Ratio (test 1.0 1.2-2.2 L code = 1759-0) Bilirubin, Total 0.6 mg/dL 0.0-1.2 (test code = 1975-2) Alkaline 130 IU/L 48-121 H Phosphatase (test Pl ease note code = 6768-6) reference int erval change
<b r/>Perf ormed by:
[facility] [place] ([place])

AST (SGOT) (test 15 IU/L 0-40 code = 1920-8) ALT (SGPT) (test 18 IU/L 0-44 code = 1742-6) [facility] Comp[facility] Panel (14)2020-08-16 01:19:00 Test Item Value Reference Range Interpretation Comments Glucose (test code 424 mg/dL 65-99 H = 2345-7) BUN (test code = 27 mg/dL 6-24 H 3094-0) Creatinine (test 1.88 mg/dL 0.76-1.27 H code = 2160-0) eGFR If NonAfricn 42 >59 L Am (test code = mL/min/1.73 69120-6) eGFR If Africn Am 48 >59 L [facility] currently (test code = mL/min/1.73 [place] [address]-2) compliance with the current recommendations of the National Kidney Foundation. [facility] [place] will update re porting as new guidelin es are published from the NKF-ASN Task force.
<br/ >Perfor med by:
[facility] ([place])

BUN/Creatinine 14 9-20 Ratio (test code = 3097-3) Sodium (test code = 138 mmol/L 029-341 3318-2) Potassium (test 4.2 mmol/L 3.5-5.2 code = 2823-3) Chloride (test code 98 mmol/L 96-106 = 2075-0) Carbon Dioxide, 28 mmol/L 20-29 Total (test code = 2027-) Calcium (test code 8.4 mg/dL 8.7-10.2 L = 05349-8) Protein, Total 6.1 g/dL 6.0-8.5 (test code = 2885-2) Albumin (test code 3.0 g/dL 4.0-5.0 L = 1751-7) Globulin, Total 3.1 g/dL 1.5-4.5 (test code = 91077-4) A/G Ratio (test 1.0 1.2-2.2 L code [...] >59 L Am (test code = mL/min/1.73 18180-8) eGFR If Africn Am 48 >59 L [facility] currently (test code = mL/min/1.73 [place] [address]-4) compliance with the current recommendations of the National Kidney Foundation. [facility] [place] will update re porting as new guidelin es are published from the NKF-ASN Task force.
<br/ >Perfor med by:
[facility] ([place])

BUN/Creatinine 14 9-20 Ratio (test code = 3097-3) Sodium (test code = 138 mmol/L 507-494 8054-2) Potassium (test 4.2 mmol/L 3.5-5.2 code = 2823-3) Chloride (test code 98 mmol/L 96-106 = 2075-0) Carbon Dioxide, 28 mmol/L 20-29 Total (test code = 8-9) Calcium (test code 8.4 mg/dL 8.7-10.2 L = 11692-5) Protein, Total 6.1 g/dL 6.0-8.5 (test code = 2885-2) Albumin (test code 3.0 g/dL 4.0-5.0 L = 1751-7) Globulin, Total 3.1 g/dL 1.5-4.5 (test code = 61216-1) A/G Ratio (test 1.0 1.2-2.2 L code = 1759-0) Bilirubin, Total 0.6 mg/dL 0.0-1.2 (test code = 1975-2) Alkaline 130 IU/L 48-121 H Phosphatase (test Pl ease note code = 6768-6) reference int erval change
<b r/>Perf ormed by:
[facility] ([place])

AST (SGOT) (test 15 IU/L 0-40 code = 1920-8) ALT (SGPT) (test 18 IU/L 0-44 code = 1742-6) [facility] Description: Comp. Metabolic Panel (14)2020-08-16 01:19:00 Test Item Value Reference Range Interpretation Comments Glucose (test code 424 mg/dL 65-99 H = 2345-7) BUN (test code = 27 mg/dL 6-24 H 3094-0) Creatinine (test 1.88 mg/dL 0.76-1.27 H code = 2160-0) eGFR If NonAfricn 42 >59 L Am (test code = mL/min/1.73 67943-9) eGFR If Africn Am 48 >59 L [facility] currently (test code = mL/min/1.73 [place] [address]-7) compliance with the current recommendations of the National Kidney Foundation. [place] will update re porting as new guidelin es are published from the NKF-ASN Task force.
<br/ >Perfor med by:
[facility] ([place])

BUN/Creatinine 14 9-20 Ratio (test code = 3097-3) Sodium (test code = 138 mmol/L 749-518 4072-2) Potassium (test 4.2 mmol/L 3.5-5.2 code = 2823-3) Chloride (test code 98 mmol/L 96-106 = 2075-0) Carbon Dioxide, 28 mmol/L 20-29 Total (test code = 2027-) Calcium (test code 8.4 mg/dL 8.7-10.2 L = 82507-0) Protein, Total 6.1 g/dL 6.0-8.5 (test code = 2885-2) Albumin (test code 3.0 g/dL 4.0-5.0 L = 1751-7) Globulin, Total 3.1 g/dL 1.5-4.5 (test code = 47841-3) A/G Ratio (test 1.0 1.2-2.2 L code = 1759-0) Bilirubin, Total 0.6 mg/dL 0.0-1.2 (test code = 1975-2) Alkaline 130 IU/L 48-121 H Phosphatase (test Pl ease note code = 6768-6) reference int erval change
<b r/>Perf ormed by:
[facility] ([place])

AST (SGOT) (test 15 IU/L 0-40 code = 1920-8) ALT (SGPT) (test 18 IU/L 0-44 code = 1742-6) [facility] Description: Comp. Metabolic Panel (14)2020-08-16 01:19:00 Test Item Value Reference Range Interpretation Comments Glucose (test code 424 mg/dL 65-99 H = 2345-7) BUN (test code = 27 mg/dL 6-24 H 3094-0) Creatinine (test 1.88 mg/dL 0.76-1.27 H code = 2160-0) eGFR If NonAfricn 42 >59 L Am (test code = mL/min/1.73 95115-7) eGFR If Africn Am 48 >59 L [facility] currently (test code = mL/min/1.73 [place] [address]-6) compliance with the current recommendations of the National Kidney Foundation. [facility] [place] will update re porting as new guidelin es are published from the NKF-ASN Task force.
<br/ >Perfor med by:
[facility] [place] [facility] ([place])

BUN/Creatinine 14 9-20 Ratio (test code = 3097-3) Sodium (test code = 138 mmol/L 302-585 5701-2) Potassium (test 4.2 mmol/L 3.5-5.2 code = 2823-3) Chloride (test code 98 mmol/L 96-106 = 5-0) Carbon Dioxide, 28 mmol/L 20-29 Total (test code = 2027-) Calcium (test code 8.4 mg/dL 8.7-10.2 L = 83800-0) Protein, Total 6.1 g/dL 6.0-8.5 (test code = 2885-2) Albumin (test code 3.0 g/dL 4.0-5.0 L = 1751-7) Globulin, Total 3.1 g/dL 1.5-4.5 (test code = 79234-4) A/G Ratio (test 1.0 1.2-2.2 L code = 1759-0) Bilirubin, Total 0.6 mg/dL 0.0-1.2 (test code = 1975-2) Alkaline 130 IU/L 48-121 H Phosphatase (test Pl ease note code = 6768-6) reference int erval change
<b r/>Perf ormed by:
[facility] ([place])

AST (SGOT) (test 15 IU/L 0-40 code = 1920-8) ALT (SGPT) (test 18 IU/L 0-44 code = 1742-6) [facility]: Comp. Metabolic Panel (14)2020-08-16 01:19:00 Test Item Value Reference Range Interpretation Comments Glucose (test code 424 mg/dL 65-99 H = 2345-7) BUN (test code = 27 mg/dL 6-24 H 3094-0) Creatinine (test 1.88 mg/dL 0.76-1.27 H code = 2160-0) eGFR If NonAfricn 42 >59 L Am (test code = mL/min/1.73 09163-3) eGFR If Africn Am 48 >59 L [facility] currently (test code = mL/min/1.73 [place] [address]-9) compliance with the current recommendations of the National Kidney Foundation. [place] will update re porting as new guidelin es are published from the NKF-ASN Task force.
<br/ >Perfor med by:
[facility] [place] ([place])

BUN/Creatinine 14 9-20 Ratio (test code = 3097-3) Sodium (test code = 138 mmol/L 770-198 5347-2) Potassium (test 4.2 mmol/L 3.5-5.2 code = 2823-3) Chloride (test code 98 mmol/L 96-106 = 5-0) Carbon Dioxide, 28 mmol/L 20-29 Total (test code = 2027-) Calcium (test code 8.4 mg/dL 8.7-10.2 L = 56628-5) Protein, Total 6.1 g/dL 6.0-8.5 (test code = 2885-2) Albumin (test code 3.0 g/dL 4.0-5.0 L = 1751-7) Globulin, Total 3.1 g/dL 1.5-4.5 (test code = 94474-4) A/G Ratio (test 1.0 1.2-2.2 L code = 1759-0) Bilirubin, Total 0.6 mg/dL 0.0-1.2 (test code = 1975-2) Alkaline 130 IU/L 48-121 H Phosphatase (test Pl ease note code = 6768-6) reference int erval change
<b r/>Perf ormed by:
[facility] ([place])

AST (SGOT) (test 15 IU/L 0-40 code = 1920-8) ALT (SGPT) (test 18 IU/L 0-44 code = 1742-6) [facility] Description: Comp. Metabolic Panel (2020-08-16 01:19:00 Test Item Value Reference Range Interpretation Comments Glucose (test code 424 mg/dL 65-99 H = 2345-7) BUN (test code = 27 mg/dL 6-24 H 3094-0) Creatinine (test 1.88 mg/dL 0.76-1.27 H code = 2160-0) eGFR If NonAfricn 42 >59 L Am (test code = mL/min/1.73 22001-2) eGFR If Africn Am 48 >59 L [facility] currently (test code = mL/min/1.73 [place] [address]-0) compliance with the current recommendations of the National Kidney Foundation. [facility] [place] will update re porting as new guidelin es are published from the NKF-ASN Task force.
<br/ >Perfor med by:
[facility] ([place])

BUN/Creatinine 14 9-20 Ratio (test code = 3097-3) Sodium (test code = 138 mmol/L 191-851 0310-2) Potassium (test 4.2 mmol/L 3.5-5.2 code = 2823-3) Chloride (test code 98 mmol/L 96-106 = 2075-0) Carbon Dioxide, 28 mmol/L 20-29 Total (test code = 2027-9) Calcium (test code 8.4 mg/dL 8.7-10.2 L = 12529-0) Protein, Total 6.1 g/dL 6.0-8.5 (test code = 2885-2) Albumin (test code 3.0 g/dL 4.0-5.0 L = 1751-7) Globulin, Total 3.1 g/dL 1.5-4.5 (test code = 32828-4) A/G Ratio (test 1.0 1.2-2.2 L code [...] >59 L Am (test code = mL/min/1.73 99428-1) eGFR If Africn Am 48 >59 L [facility] currently (test code = mL/min/1.73 [place] [address]-5) compliance with the current recommendations of the National Kidney Foundation. [facility] [place] will update re porting as new guidelin es are published from the NKF-ASN Task force.
<br/ >Perfor med by:
[facility] ([place])

BUN/Creatinine 14 9-20 Ratio (test code = 3097-3) Sodium (test code = 138 mmol/L 793-962 9682-2) Potassium (test 4.2 mmol/L 3.5-5.2 code = 2823-3) Chloride (test code 98 mmol/L 96-106 = 2075-0) Carbon Dioxide, 28 mmol/L 20-29 Total (test code = 2027-9) Calcium (test code 8.4 mg/dL 8.7-10.2 L = 45747-2) Protein, Total 6.1 g/dL 6.0-8.5 (test code = 2885-2) Albumin (test code 3.0 g/dL 4.0-5.0 L = 1751-7) Globulin, Total 3.1 g/dL 1.5-4.5 (test code = 82512-4) A/G Ratio (test 1.0 1.2-2.2 L code = 1759-0) Bilirubin, Total 0.6 mg/dL 0.0-1.2 (test code = 1975-2) Alkaline 130 IU/L 48-121 H Phosphatase (test Pl ease note code = 6768-6) reference int erval change
<b r/>Perf ormed by:
[facility] ([place])

AST (SGOT) (test 15 IU/L 0-40 code = 1920-8) ALT (SGPT) (test 18 IU/L 0-44 code = 1742-6) [facility]: Hemoglobin A1c/Hemoglobin.total in Blood 2020-08-16 00:35:00 Test Item Value Reference Range Interpretation Comments Hemoglobin A1c (test code 11.6 % 4.8-5.6 H = 4548-4) . Prediabetes: 5. 7 - 6.4 Diabete s: >6.4 Glycemi c control for niall lts with diabetes: <7.0

P erforme d by:
[facility] ([place])

[facility] Description: Hemoglobin A1c/Hemoglobin.total in Blood 2020-08-16 00:35:00 [...] with diabetes: <7.0

P erforme d by:
[facility] [place] ([place])

[facility] Description: Hemoglobin A1c/Hemoglobin.total in Blood 2020-08-16 00:35:00 Test Item Value Reference Range Interpretation Comments Hemoglobin A1c (test code 11.6 % 4.8-5.6 H = 4548-4) . Prediabetes: 5. 7 - 6.4 Diabete s: >6.4 Glycemi c control for niall lts with diabetes: <7.0

P erforme d by:
[facility] [place] ([place])

[facility] Description: Hemoglobin A1c/Hemoglobin.total in Blood 2020-08-16 00:35:00 Test Item Value Reference Range Interpretation Comments Hemoglobin A1c (test code 11.6 % 4.8-5.6 H = 4548-4) . Prediabetes: 5. 7 - 6.4 Diabete s: >6.4 Glycemi c control for niall lts with diabetes: <7.0

P erforme d by:
[facility] [place] ([place])

[facility] Description: Hemoglobin A1c/Hemoglobin.total in Blood 2020-08-16 00:35:00 Test Item Value Reference Range Interpretation Comments Hemoglobin A1c (test code 11.6 % 4.8-5.6 H = 4548-4) . Prediabetes: 5. 7 - 6.4 Diabete s: >6.4 Glycemi c control for niall lts with diabetes: <7.0

P erforme d by:
[facility] [place] ([place])

[facility] Description: Hemoglobin A1c/Hemoglobin.total in Blood 2020-08-16 00:35:00 Test Item Value Reference Range Interpretation Comments Hemoglobin A1c (test code 11.6 % 4.8-5.6 H = 4548-4) . Prediabetes: 5. 7 - 6.4 Diabete s: >6.4 Glycemi c control for niall lts with diabetes: <7.0

P erforme d by:
[facility] [place] ([place])

[facility] Description: Hemoglobin A1c/Hemoglobin.total in Blood 2020-08-16 00:35:00 Test Item Value Reference Range Interpretation Comments Hemoglobin A1c (test code 11.6 % 4.8-5.6 H = 4548-4) . Prediabetes: 5. 7 - 6.4 Diabete s: >6.4 Glycemi c control for niall lts with diabetes: <7.0

P erforme d by:
[facility] [place] ([place])

[facility] Description: Hemoglobin A1c/Hemoglobin.total in Blood 2020-08-16 00:35:00 Test Item Value Reference Range Interpretation Comments Hemoglobin A1c (test code 11.6 % 4.8-5.6 H = 4548-4) . Prediabetes: 5. 7 - 6.4 Diabete s: >6.4 Glycemi c control for niall lts with diabetes: <7.0

P erforme d by:
[facility] [place] ([place])

[facility] Description: Hemoglobin A1c/Hemoglobin.total [...] with diabetes: <7.0

P erforme d by:
[facility] [place] ([place])

[facility] Description: Hemoglobin A1c/Hemoglobin.total in Blood 2020-08-16 00:35:00 Test Item Value Reference Range Interpretation Comments Hemoglobin A1c (test code 11.6 % 4.8-5.6 H = 4548-4) . Prediabetes: 5. 7 - 6.4 Diabete s: >6.4 Glycemi c control for niall lts with diabetes: <7.0

P erforme d by:
[facility] [place] ([place])

[facility] Description: Hemoglobin A1c/Hemoglobin.total in Blood 2020-08-16 00:35:00 Test Item Value Reference Range Interpretation Comments Hemoglobin A1c (test code 11.6 % 4.8-5.6 H = 4548-4) . Prediabetes: 5. 7 - 6.4 Diabete s: >6.4 Glycemi c control for niall lts with diabetes: <7.0

P erforme d by:
[facility] [place] ([place])

[facility] Description: Hemoglobin A1c/Hemoglobin.total in Blood 2020-08-16 00:35:00 Test Item Value Reference Range Interpretation Comments Hemoglobin A1c (test code 11.6 % 4.8-5.6 H = 4548-4) . Prediabetes: 5. 7 - 6.4 Diabete s: >6.4 Glycemi c control for niall lts with diabetes: <7.0

P erforme d by:
[facility] [place] ([place])

[facility] Description: Hemoglobin A1c/Hemoglobin.total in Blood 2020-08-16 00:35:00 Test Item Value Reference Range Interpretation Comments Hemoglobin A1c (test code 11.6 % 4.8-5.6 H = 4548-4) . Prediabetes: 5. 7 - 6.4 Diabete s: >6.4 Glycemi c control for niall lts with diabetes: <7.0

P erforme d by:
[employer] [facility] [place] ([place])

[facility] Description: Hemoglobin A1c/Hemoglobin.total in Blood 2020-08-16 00:35:00 Test Item Value Reference Range Interpretation Comments Hemoglobin A1c (test code 11.6 % 4.8-5.6 H = 4548-4) . Prediabetes: 5. 7 - 6.4 Diabete s: >6.4 Glycemi c control for niall lts with diabetes: <7.0

P erforme d by:
[employer] [employer] [place] ([place])

[facility] Description: Hemoglobin A1c/Hemoglobin.total in Blood 2020-08-16 00:35:00 Test Item Value Reference Range Interpretation Comments Hemoglobin A1c (test code 11.6 % 4.8-5.6 H = 4548-4) . Prediabetes: 5. 7 - 6.4 Diabete s: >6.4 Glycemi c control for niall lts with diabetes: <7.0

P erforme d by:
[facility] [place] ([place])

[facility] Description: Hemoglobin A1c/Hemoglobin.total in Blood 2020-08-16 00:35:00 Test Item Value Reference Range Interpretation Comments Hemoglobin A1c (test code 11.6 % 4.8-5.6 H = 4548-4) . Prediabetes: 5. 7 - 6.4 Diabete s: >6.4 Glycemi c control for niall lts with diabetes: <7.0

P erforme d by:
[facility] ([place])

[facility] Description: Hemoglobin A1c/Hemoglobin.total in Blood 2020-08-16 00:35:00 Test Item Value Reference Range Interpretation Comments Hemoglobin A1c (test code 11.6 % 4.8-5.6 H = 4548-4) . Prediabetes: 5. 7 - 6.4 Diabete s: >6.4 Glycemi c control for niall lts with diabetes: <7.0

P erforme d by:
[facility] ([place])

[facility] Description: Hemoglobin A1c/Hemoglobin.total in Blood 2020-08-16 00:35:00 Test Item Value Reference Range Interpretation Comments Hemoglobin A1c (test code 11.6 % 4.8-5.6 H = 4548-4) . Prediabetes: 5. 7 - 6.4 Diabete s: >6.4 Glycemi c control for niall lts with diabetes: <7.0

P erforme d by:
[facility] ([place])

[facility] and screen, [id number] 19:24:00 Test Item Value Reference Range Interpretation Comments ABO/RH AUTOMATED (BEAKER) (test A POSITIVE ECHO code = 2260) Ab Scrn (test code = 890-4) NEGATIVE ECHO [facility] screen, [id number] 19:24:00 Test Item Value Reference Range Interpretation Comments ABO/RH AUTOMATED (BEAKER) (test A POSITIVE ECHO code = 2260) Ab Scrn (test code = 890-4) NEGATIVE ECHO [facility] and screen, [id number] 19:24:00 Test Item Value Reference Range Interpretation Comments ABO/RH AUTOMATED (BEAKER) (test A POSITIVE ECHO code = 2260) Ab Scrn (test code = 890-4) NEGATIVE [facility]CHO [facility], [id number] 19:24:00 Test Item Value Reference Range Interpretation Comments ABO/RH AUTOMATED (BEAKER) (test A POSITIVE ECHO code = 2260) Ab Scrn (test code = 890-4) NEGATIVE ECHO [facility], [id number] 19:24:00 Test Item Value Reference Range Interpretation Comments ABO/RH AUTOMATED (BEAKER) (test A POSITIVE ECHO code = 2260) Ab Scrn (test code = 890-4) NEGATIVE [facility]CHO [facility], [id number] 19:24:00 Test Item Value Reference Range Interpretation Comments ABO/RH AUTOMATED (BEAKER) (test A POSITIVE ECHO code = 2260) Ab Scrn (test code = 890-4) NEGATIVE [facility]CHO [facility], [id number] 19:24:00 Test Item Value Reference Range Interpretation Comments ABO/RH AUTOMATED (BEAKER) (test A POSITIVE ECHO code = 2260) Ab Scrn (test code = 890-4) [facility]GATIVE [facility] [id number] 19:12:00 Test Item Value Reference Range Interpretation Comments Protein, Total (test 6.9 See_Comment [Autom ated code = 2885-2) message] The system which generated this result transmit josé luis reference range : 6.0 - 8.5 gm/dL . The reference range was not u sed to interpret th is result as normal/abnormal . Albumin (test code = 3.3 g/dL 3.5-5 L 30064-4) Alkaline Phosphatase 97 U/L 30-115 (test code = 6768-6) Total Bilirubin (test 0.9 mg/dL 0.1-1.2 code = 1975-2) Sodium (test code = 137 meq/L 683-050 1446-2) Potassium (test code 4.5 meq/L 3.6-5.5 = 2823-3) Chloride (test code = 100 meq/L 98-106 2075-0) CO2 (test code = 26 meq/L 20-29 8-9) BUN (test code = 51 mg/dL 10-26 H 3094-0) Creatinine (test code 1.87 mg/dL 0.5-1.2 H = 2160-0) Glucose (test code = 267 mg/dL 70-110 H 2345-7) Calcium (test code = 9.1 mg/dL 8.5-10.5 33747-4) AST (test code = 18 U/L 5-40 1920-8) ALT (test code = 23 U/L 5-50 1742-6) EGFR (test code = 39 mL/min/1.73 [place] [address]-9) NOT ACCURATE CREATININE CLEARANCE IN PREDICTING GLOMERULAR FILTRATION RATE . ESTIMATED GFR I S NOT APPLICABLE FOR DIALYSIS PATIEN TS. ISSA (test code = ISSA) Housekeeping/Laundry Supervisor ID - [id number] r ID - [id number] r ID - [id number] r ID - [id number] r ID - [id number] r ID - [id number] r ID - [id number] r ID - [id number] r ID - [id number] r ID - [id number] r ID - [id number] r ID - [id number] r ID - [id number] r ID - [id number] r ID - [id number] r ID - [id number] r ID - [id number] r ID - [id number] r ID - [id number] Lab Interpretation Abnormal (test code = 20435-8) [facility] [id number] 19:12:00 Test Item Value Reference Range Interpretation Comments Protein, Total (test 6.9 See_Comment [Autom ated code = 2885-2) message] The system which generated this result transmit josé luis reference range : 6.0 - 8.5 gm/dL . The reference range was not u sed to interpret th is result as normal/abnormal . Albumin (test code = 3.3 g/dL 3.5-5 L 87589-3) Alkaline Phosphatase 97 U/L 30-115 (test code = 6768-6) Total Bilirubin (test 0.9 mg/dL 0.1-1.2 code = 1974-2) Sodium (test code = 137 meq/L 421-201 4961-2) Potassium (test code 4.5 meq/L 3.6-5.5 = 2823-3) Chloride (test code = 100 meq/L 98-106 2075-0) CO2 (test code = 26 meq/L 20-29 8-9) BUN (test code = 51 mg/dL 10-26 H 3094-0) Creatinine (test code 1.87 mg/dL 0.5-1.2 H = 2160-0) Glucose (test code = 267 mg/dL 70-110 H 2345-7) Calcium (test code = 9.1 mg/dL 8.5-10.5 14083-0) AST (test code = 18 U/L 5-40 1920-8) ALT (test code = 23 U/L 5-50 1742-6) EGFR (test code = 39 mL/min/1.73 [place] [address]-7) NOT ACCURATE CREATININE CLEARANCE IN PREDICTING GLOMERULAR FILTRATION RATE . ESTIMATED GFR I S NOT APPLICABLE FOR DIALYSIS PATIEN TS. ISSA (test code = ISSA) Housekeeping/Laundry Supervisor ID - [id number] r ID - [id number] r ID - [id number] r ID - [id number] r ID - [id number] r ID - [id number] r ID - [id number] r ID - [id number] r ID - [id number] r ID - [id number] r ID - [id number] r ID - [id number] r ID - [id number] r ID - [id number] r ID - [id number] r ID - [id number] r ID - [id number] r ID - [id number] r ID - [id number] Lab Interpretation Abnormal (test code = 13049-8) [id number] 19:12:00 Test Item Value Reference Range Interpretation Comments Protein, Total (test 6.9 See_Comment [Autom ated code = 2885-2) message] The system which generated this result transmit josé luis reference range : 6.0 - 8.5 gm/dL . The reference range was not u sed to interpret th is result as normal/abnormal . Albumin (test code = 3.3 g/dL 3.5-5 L 21688-8) Alkaline Phosphatase 97 U/L 30-115 (test code = 6768-6) Total Bilirubin (test 0.9 mg/dL 0.1-1.2 code = 1974-2) Sodium (test code = 137 meq/L 551-693 5995-2) Potassium (test code 4.5 meq/L 3.6-5.5 = 2823-3) Chloride (test code = 100 meq/L 98-106 5-0) CO2 (test code = 26 meq/L 20-29 8-9) BUN (test code = 51 mg/dL 10-26 H 3094-0) Creatinine (test code 1.87 mg/dL 0.5-1.2 H = 2160-0) Glucose (test code = 267 mg/dL 70-110 H 2345-7) Calcium (test code = 9.1 mg/dL 8.5-10.5 49411-8) AST (test code = 18 U/L 5-40 1920-8) ALT (test code = 23 U/L 5-50 1742-6) EGFR (test code = 39 mL/min/1.73 [place] [address]-5) NOT ACCURATE CREATININE CLEARANCE IN PREDICTING GLOMERULAR FILTRATION RATE . ESTIMATED GFR I S NOT APPLICABLE FOR DIALYSIS PATIEN TS. ISSA (test code = ISSA) Housekeeping/Laundry Supervisor ID - [id number] r ID - [id number] r ID - [id number] r ID - [id number] r ID - [id number] r ID - [id number] r ID - [id number] r ID - [id number] r ID - [id number] r ID - [id number] r ID - [id number] r ID - [id number] r ID - [id number] r ID - [id number] r ID - [id number] r ID - [id number] r ID - [id number] r ID - [id number] r ID - [id number] Lab Interpretation Abnormal (test code = 86203-4) [facility] [id number] 19:12:00 Test Item Value Reference Range Interpretation Comments Protein, Total (test 6.9 See_Comment [Autom ated code = 2885-2) message] The system which generated this result transmit josé luis reference range : 6.0 - 8.5 gm/dL . The reference range was not u sed to interpret th is result as normal/abnormal . Albumin (test code = 3.3 g/dL 3.5-5 L 36530-0) Alkaline Phosphatase 97 U/L 30-115 (test code = 6768-6) Total Bilirubin (test 0.9 mg/dL 0.1-1.2 code = 1975-2) Sodium (test code = 137 meq/L 467-196 6745-2) Potassium (test code 4.5 meq/L 3.6-5.5 = 2823-3) Chloride (test code = 100 meq/L 98-106 2075-0) CO2 (test code = 26 meq/L 20-29 2028-9) BUN (test code = 51 mg/dL 10-26 H 3094-0) Creatinine (test code 1.87 mg/dL 0.5-1.2 H = 2160-0) Glucose (test code = 267 mg/dL 70-110 H 2345-7) Calcium (test code = 9.1 mg/dL 8.5-10.5 87639-1) AST (test code = 18 U/L 5-40 1920-8) ALT (test code = 23 U/L 5-50 1742-6) EGFR (test code = 39 mL/min/1.73 [place] [address]-8) NOT ACCURATE CREATININE CLEARANCE IN PREDICTING GLOMERULAR FILTRATION RATE . ESTIMATED GFR I S NOT APPLICABLE FOR DIALYSIS PATIEN TS. ISSA (test code = ISSA) Housekeeping/Laundry Supervisor ID - [id number] r ID - [id number] r ID - [id number] r ID - [id number] r ID - [id number] r ID - [id number] r ID - [id number] r ID - [id number] r ID - [id number] r ID - [id number] r ID - [id number] r ID - [id number] r ID - [id number] r ID - [id number] r ID - [id number] r ID - [id number] r ID - [id number] r ID - [id number] r ID - [id number] Lab Interpretation Abnormal (test code = 48358-0) [facility] [id number] 19:12:00 Test Item Value Reference Range Interpretation Comments Protein, Total (test 6.9 See_Comment [Autom ated code = 2885-2) message] The system which generated this result transmit josé luis reference range : 6.0 - 8.5 gm/dL . The reference range was not u sed to interpret th is result as normal/abnormal . Albumin (test code = 3.3 g/dL 3.5-5.0 L 95496-7) Alkaline Phosphatase 97 U/L 30-115 (test code = 6768-6) Total Bilirubin (test 0.9 mg/dL 0.1-1.2 code = 1974-2) Sodium (test code = 137 meq/L 271-096 4575-2) Potassium (test code 4.5 meq/L 3.6-5.5 = 2823-3) Chloride (test code = 100 meq/L 98-106 5-0) CO2 (test code = 26 meq/L 20-29 8-9) BUN (test code = 51 mg/dL 10-26 H 3094-0) Creatinine (test code 1.87 mg/dL 0.50-1.20 H = 2160-0) Glucose (test code = 267 mg/dL 70-110 H 2345-7) Calcium (test code = 9.1 mg/dL 8.5-10.5 85906-2) AST (test code = 18 U/L 5-40 1920-8) ALT (test code = 23 U/L 5-50 1742-6) EGFR (test code = 39 mL/min/1.73 [place] [address]-8) NOT ACCURATE CREATININE CLEARANCE IN PREDICTING GLOMERULAR FILTRATION RATE . ESTIMATED GFR I S NOT APPLICABLE FOR DIALYSIS PATIEN TS. ISSA (test code = ISSA) Housekeeping/Laundry Supervisor ID - [id number] r ID - [id number] r ID - [id number] r ID - [id number] r ID - [id number] r ID - [id number] r ID - [id number] r ID - [id number] r ID - [id number] r ID - [id number] r ID - [id number] r ID - [id number] r ID - [id number] r ID - [id number] r ID - [id number] r ID - [id number] r ID - [id number] r ID - [id number] r ID - [id number] Lab Interpretation Abnormal (test code = 74629-3) [facility] [id number] 19:12:00 Test Item Value Reference Range Interpretation Comments Protein, Total (test 6.9 See_Comment [Autom ated code = 2885-2) message] The system which generated this result transmit josé luis reference range : 6.0 - 8.5 gm/dL . The reference range was not u sed to interpret th is result as normal/abnormal . Albumin (test code = 3.3 g/dL 3.5-5.0 L 97042-6) Alkaline Phosphatase 97 U/L 30-115 (test code = 6768-6) Total Bilirubin (test 0.9 mg/dL 0.1-1.2 code = 1974-2) Sodium (test code = 137 meq/L 161-866 9260-2) Potassium (test code 4.5 meq/L 3.6-5.5 = 2823-3) Chloride (test code = 100 meq/L 98-106 2074-0) CO2 (test code = 26 meq/L 20-29 2027-) BUN (test code = 51 mg/dL 10-26 H 3094-0) Creatinine (test code 1.87 mg/dL 0.50-1.20 H = 2160-0) Glucose (test code = 267 mg/dL 70-110 H 2345-7) Calcium (test code = 9.1 mg/dL 8.5-10.5 69239-3) AST (test code = 18 U/L 5-40 1920-8) ALT (test code = 23 U/L 5-50 1742-6) EGFR (test code = 39 mL/min/1.73 [place] [address]-3) NOT ACCURATE CREATININE CLEARANCE IN PREDICTING GLOMERULAR FILTRATION RATE . ESTIMATED GFR I S NOT APPLICABLE FOR DIALYSIS PATIEN TS. ISSA (test code = ISSA) Housekeeping/Laundry Supervisor ID - [id number] r ID - [id number] r ID - [id number] r ID - [id number] r ID - [id number] r ID - [id number] r ID - [id number] r ID - [id number] r ID - [id number] r ID - [id number] r ID - [id number] r ID - [id number] r ID - [id number] r ID - [id number] r ID - [id number] r ID - [id number] r ID - [id number] r ID - [id number] r ID - [id number] Lab Interpretation Abnormal (test code = 34561-4) [facility] [id number] 19:12:00 Test Item Value Reference Range Interpretation Comments Protein, Total (test 6.9 See_Comment [Autom ated code = 2885-2) message] The system which generated this result transmit josé luis reference range : 6.0 - 8.5 gm/dL . The reference range was not u sed to interpret th is result as normal/abnormal . Albumin (test code = 3.3 g/dL 3.5-5.0 L 91210-5) Alkaline Phosphatase 97 U/L 30-115 (test code = 6768-6) Total Bilirubin (test 0.9 mg/dL 0.1-1.2 code = 1975-2) Sodium (test code = 137 meq/L 127-000 7386-2) Potassium (test code 4.5 meq/L 3.6-5.5 = 2823-3) Chloride (test code = 100 meq/L 98-106 2075-0) CO2 (test code = 26 meq/L 20-29 8-9) BUN (test code = 51 mg/dL 10-26 H 3094-0) Creatinine (test code 1.87 mg/dL 0.50-1.20 H = 2160-0) Glucose (test code = 267 mg/dL 70-110 H 2345-7) Calcium (test code = 9.1 mg/dL 8.5-10.5 65541-0) AST (test code = 18 U/L 5-40 1920-8) ALT (test code = 23 U/L 5-50 1742-6) EGFR (test code = 39 mL/min/1.73 [place] [address]-2) NOT ACCURATE CREATININE CLEARANCE IN PREDICTING GLOMERULAR FILTRATION RATE . ESTIMATED GFR I S NOT APPLICABLE FOR DIALYSIS PATIEN TS. ISSA (test code = ISSA) Housekeeping/Laundry Supervisor ID - [id number] r ID - [id number] r ID - [id number] r ID - [id number] r ID - [id number] r ID - [id number] r ID - [id number] r ID - [id number] r ID - [id number] r ID - [id number] r ID - [id number] r ID - [id number] r ID - [id number] r ID - [id number] r ID - [id number] r ID - [id number] r ID - [id number] r ID - [id number] r ID - [id number] Lab Interpretation Abnormal (test code = 15403-9) [facility] [id number] 19:12:00 Test Item Value Reference Range Interpretation [...] S NOT APPLICABLE FOR DIALYSIS PATIEN TS. Housekeeping/Laundry Supervisor ID - [id number] ID - [id number] ID - [id number] ID - [id number] ID - [id number] ID - [id number] ID - [id number] ID - [id number] ID - [id number] ID - [id number] ID - [id number] ID - [id number] ID - [id number] ID - [id number] ID - [id number] ID - [id number] ID - [id number] ID - [id number] ID - [id number] acid, [id number] 19:05:00 Test Item Value Reference Range Interpretation Comments Lactate, Venous (test code 1.18 mmol/L 0.5-2 = 2872) ISSA (test code = ISSA) Housekeeping/Laundry Supervisor ID - [id number] ID - [id number] ID - [id number] ID - [id number] Lab Interpretation (test Normal code = 59258-9) [id number]:05:00 Test Item Value Reference Range Interpretation Comments Lactate, Venous (test code 1.18 mmol/L 0.5-2 = 2872) ISSA (test code = ISSA) Housekeeping/Laundry Supervisor ID - [id number] ID - [id number] ID - [id number] ID - [id number] Lab Interpretation (test Normal code = 00679-1) [facility] [id number] 19:05:00 Test Item Value Reference Range Interpretation Comments Lactate, Venous (test code 1.18 mmol/L 0.5-2 = 2872) ISSA (test code = ISSA) Housekeeping/Laundry Supervisor ID - [id number] ID - [id number] ID - [id number] ID - [id number] Lab Interpretation (test Normal code = 88656-4) [facility] [id number] 19:05:00 Test Item Value Reference Range Interpretation Comments Lactate, Venous (test code 1.18 mmol/L 0.5-2 = 2872) ISSA (test code = ISSA) Housekeeping/Laundry Supervisor ID - [id number] ID - [id number] ID - [id number] ID - [id number] Lab Interpretation (test Normal code = 24141-8) [facility] [id number] 19:05:00 Test Item Value Reference Range Interpretation Comments Lactate, Venous (test code 1.18 mmol/L 0.50-2.00 = 2872) ISSA (test code = ISSA) Housekeeping/Laundry Supervisor ID - [id number] ID - [id number] ID - [id number] ID - [id number] Lab Interpretation (test Normal code = 26993-5) [facility] [id number] 19:05:00 Test Item Value Reference Range Interpretation Comments Lactate, Venous (test code 1.18 mmol/L 0.50-2.00 = 2872) ISSA (test code = ISSA) Housekeeping/Laundry Supervisor ID - [id number] ID - [id number] ID - [id number] ID - [id number] Lab Interpretation (test Normal code = 49298-5) [facility] US[facility], [id number] 19:05:00 Test Item Value Reference Range Interpretation Comments Lactate, Venous (test code 1.18 mmol/L 0.50-2.00 = 2872) ISSA (test code = ISSA) Housekeeping/Laundry Supervisor ID - [id number] ID - [id number] ID - [id number] ID - [id number] Lab Interpretation (test Normal code = 88608-1) [facility] USCLACTIC ACID, [id number] 19:05:00 Test Item Value Reference Range Interpretation Comments LACTATE BLOOD VENOUS (2) (BEAKER) 1.18 mmol/L 0.50-<2.00 (test code = 2872) Housekeeping/Laundry Supervisor ID - [id number] ID - [id number] ID - [id number] ID - [id number] 19:02:00 Test Item Value Reference Interpretation Comments [...] valves. Lab Interpretation Abnormal (test code = 66490-0) [facility] USCPT/[id number] 19:02:00 Test Item Value Reference Interpretation Comments [...] valves. Lab Interpretation Abnormal (test code = 08705-4) [facility] US[facility]T/[id number] 19:02:00 Test Item Value Reference Interpretation Comments [...] valves. Lab Interpretation Abnormal (test code = 60915-4) [facility] US[facility]T/[id number] 19:02:00 Test Item Value Reference Interpretation Comments [...] valves. Lab Interpretation Abnormal (test code = 60393-8) [facility] US[facility]T/[id number] 19:02:00 Test Item Value Reference Interpretation Comments [...] valves. Lab Interpretation Abnormal (test code = 33034-3) [facility] US[facility]T/[id number] 19:02:00 Test Item Value Reference Interpretation Comments [...] valves. Lab Interpretation Abnormal (test code = 71339-1) [facility] USCPT/[id number] 19:02:00 Test Item Value Reference Interpretation Comments [...] valves. Lab Interpretation Abnormal (test code = 80771-5) [facility] USCPROTHROMBIN TIME/[id number] 19:02:00 Test Item Value Reference Range Interpretation [...] code = 2801) CARDIAC CATH REPORT - [id number] 13:14:50Ordered by an unspecified provider. [facility] USCC[facility] - [id number] 13:14:50 Ordered by an unspecified provider.[facility] USCCARDIAC CATH REPORT - [id number] 13:14:50Ordered by an unspecified provider.[facility] USCCARDIAC CATH REPORT - [id number] 13:14:50Ordered by an unspecified provider.[facility] USCKappa / lambda light chains, [id number] 10:53:00 Test Item Value Reference Interpretation Comments Range [place] Lt Chain,Free 129.5 mg/L 3.3-19.4 H (test code = 04588-0) Lambda Lt 99.3 mg/L 5.7-26.3 H Chain,Free (test code = 34988-2) [place]/Lambda,Free 1.3 0.26-1.65 Free [place] a/lambda (test code [...] = Performing Lab ISSA) [facility] [address] [place] [address] Awais Cedeno MD, PhD, TOMY Lab Interpretation Abnormal (test code = 97572-7) [facility] USCK[facility] / lambda light chains, [id number] 10:53:00 Test Item Value Reference Interpretation Comments Range [place] Lt Chain,Free 129.5 mg/L 3.3-19.4 H (test code = 79163-4) Lambda Lt 99.3 mg/L 5.7-26.3 H Chain,Free (test code = 49925-4) [place]/Lambda,Free 1.3 0.26-1.65 Free [place] a/lambda (test code [...] (test code = Performing Lab ISSA) [facility] [address] [place] [address] Awais Cedeno MD, PhD, TOMY Lab Interpretation Abnormal (test code = 54181-4) [facility] USCK[facility] / lambda light chains, [id number] 10:53:00 Test Item Value Reference Interpretation Comments Range [place] Lt Chain,Free 129.5 mg/L 3.3-19.4 H (test code = 70984-2) Lambda Lt 99.3 mg/L 5.7-26.3 H Chain,Free (test code = 75964-5) [place]/Lambda,Free 1.3 0.26-1.65 Free [place] a/lambda (test code [...] (test code = Performing Lab ISSA) [facility] [address] [place] [address] [place] [address] Awais Cedeno MD, PhD, TOMY Lab Interpretation Abnormal (test code = 78128-6) [facility] USCK[facility] / lambda light chains, [id number] 10:53:00 Test Item Value Reference Interpretation Comments Range [place] Lt Chain,Free 129.5 mg/L 3.3-19.4 H (test code = 31973-4) Lambda Lt 99.3 mg/L 5.7-26.3 H Chain,Free (test code = 94059-1) [place]/Lambda,Free 1.3 0.26-1.65 Free [place] a/lambda (test code [...] (test code = Performing Lab ISSA) [facility] [address] [place] [address] [place] [address] Awais Cedeno MD, PhD, TOMY Lab Interpretation Abnormal (test code = 41627-9) [facility]CK[facility] / lambda light chains, [id number] 10:53:00 Test Item Value Reference Interpretation Comments Range [place] Lt Chain,Free 129.5 mg/L 3.3-19.4 H (test code = 86064-0) Lambda Lt 99.3 mg/L 5.7-26.3 H Chain,Free (test code = 19397-4) [place]/Lambda,Free 1.3 0.26-1.65 Free [place] a/lambda (test code [...] (test code = Performing Lab ISSA) [facility] [address] [place] [address] Awais Cedeno MD, PhD, TOMY Lab Interpretation Abnormal (test code = 77813-0) [facility] USCK[facility] / lambda light chains, [id number] 10:53:00 Test Item Value Reference Interpretation Comments Range [place] Lt Chain,Free 129.5 mg/L 3.3-19.4 H (test code = 64634-2) Lambda Lt 99.3 mg/L 5.7-26.3 H Chain,Free (test code = 59123-3) [place]/Lambda,Free 1.3 0.26-1.65 Free [place] a/lambda (test code [...] = Performing Lab ISSA) [facility] [address] [place] [address] Awais Cedeno MD, PhD, TOMY Lab Interpretation Abnormal (test code = 94144-1) [facility] USCKappa / lambda light chains, [id number] 10:53:00 Test Item Value Reference Interpretation Comments Range [place] Lt Chain,Free 129.5 mg/L 3.3-19.4 H (test code = 41742-2) Lambda Lt 99.3 mg/L 5.7-26.3 H Chain,Free (test code = 35003-1) [place]/Lambda,Free 1.3 0.26-1.65 Free [place] a/lambda (test code [...] = Performing Lab ISSA) [facility] [address] [place] [address] Awais Cedeno MD, PhD, TOMY Lab Interpretation Abnormal (test code = 20558-2) [facility] USCPOCT-GLUCOSE [id number] 08:14:00 Test Item Value Reference Range Interpretation Comments POC-GLUCOSE METER 107 mg/dL 70-110 : Notified RN/: TESTED (CECILIO) (test code AT [facility] [address] [place] [address] = 1538) [facility]NANDCandidoSENT[facility] [address]: Housekeeping/Laundry Supervisor/Techni cornelia ID = [id number] for Chelsie Garland BASIC METABOLIC [id number] 05:19:00 Test Item Value Reference Range Interpretation [...] S NOT APPLICABLE FOR DIALYSIS PATIEN TS. Housekeeping/Laundry Supervisor ID - ANSBERTOGOperator ID - ANSBERTOGOperator ID - ANSBERTOGOperator ID - ANSBERTOGOperatorID - ANSBERTOGOperator ID - ANSBERTOGOperator ID - ANSBERTOGOperator ID - ANSBERTOGOperator ID - ANSBERTOGOperator ID - ANSBERTOGOperator ID - ANSBERTOGOperator ID - ANSBERTOGOperator ID - ANSBERTOG CBC W/PLT COUNT & AUTO [id number] 05:05:00 Test Item Value Reference Range Interpretation [...] PERCENT (BEAKER) (test code = 2801) POCT-GLUCOSE [id number] 22:18:00 Test Item Value Reference Range Interpretation Comments POC-GLUCOSE METER 190 mg/dL 70-110 H : TESTED A T [facility] [address] (BEAKER) (test code [address], = 1538) [place] [address]: Housekeeping/Laundry Supervisor/Techni cornelia ID = [id number] for Bruce etienne John POCT-GLUCOSE [id number] 15:30:00 Test Item Value Reference Range Interpretation Comments POC-GLUCOSE METER 197 mg/dL 70-110 H : TESTED A T [facility] (BEAKER) ([facility] = 1538) [place] 843208: Housekeeping/Laundry Supervisor/Techni cornelia ID = [id number] for Jesi Espinal Protein electrophoresis, [id number] 14:18:00 Test Item Value Reference Range Interpretation Comments Albumin Fraction 2.5 See_Comment L [Automated (test code = 405) message] [employer] system which generated this result transmitted reference range : 3.5 - 5.5 gm/dL . The reference range was not used to interpr et this result as normal/abnormal . Alpha 1 Fraction 0.3 See_Comment [Automated (test code = 389) message] [employer] system which generated this result transmitted reference range : 0.2 - 0.4 gm/dL . The reference range was not used to interpr et this result as normal/abnormal . Alpha 2 Fraction 0.8 See_Comment [Automated (test code = 390) message] [employer] system which generated this result transmitted reference [...] 5.4 See_Comment L [Autom ated code = 5597) message] The system which generated this result transmitted reference range : 6.0 - 8.3 gm/dL . The reference range was not used to interpr et this result as normal/abnormal . ISSA (test code = ISSA) Housekeeping/Laundry Supervisor ID - PIAYA L Lab Interpretation Abnormal (test code = 09852-5) [facility] USC[facility], [id number] 14:18:00 Test Item Value Reference Range Interpretation [...] See_Comment [Automated (test code = 390) message] [employer] system which generated this result transmitted reference [...] 5.4 See_Comment L [Autom ated code = 2676) message] The system which generated this result transmitted reference range : 6.0 - 8.3 gm/dL . The reference range was not used to interpr et this result as normal/abnormal . ISSA (test code = ISSA) Housekeeping/Laundry Supervisor ID - PIAYA L Lab Interpretation Abnormal (test code = 90376-2) [facility] USCProtein electrophoresis, [id number] 14:18:00 Test Item Value Reference Range Interpretation Comments Albumin Fraction 2.5 See_Comment L [Automated (test code = 405) message] [facility] system which generated this result transmitted reference range : 3.5 - 5.5 gm/dL . The reference range was not used to interpr et this result as normal/abnormal . Alpha 1 Fraction 0.3 See_Comment [Automated (test code = 389) message] [employer] system which generated this result transmitted reference range : 0.2 - 0.4 gm/dL . The reference range was not used to interpr et this result as normal/abnormal . Alpha 2 Fraction 0.8 See_Comment [Automated (test code = 390) message] [employer] system which generated this result transmitted reference [...] 5.4 See_Comment L [Autom ated code = 6876) message] The system which generated this result transmitted reference range : 6.0 - 8.3 gm/dL . The reference range was not used to interpr et this result as normal/abnormal . ISSA (test code = ISSA) Housekeeping/Laundry Supervisor ID - PIAYA L Lab Interpretation Abnormal (test code = 42868-2) [facility] USCProtein electrophoresis, [id number] 14:18:00 Test Item Value Reference Range Interpretation Comments Albumin Fraction 2.5 See_Comment L [Automated (test code = 405) message] T system which generated this result transmitted reference range : 3.5 - 5.5 gm/dL . The reference range was not used to interpr et this result as normal/abnormal . Alpha 1 Fraction 0.3 See_Comment [Automated (test code = 389) message] [employer] system which generated this result transmitted reference range : 0.2 - 0.4 gm/dL . The reference range was not used to interpr et this result as normal/abnormal . Alpha 2 Fraction 0.8 See_Comment [Automated (test code = 390) message] [employer] system which generated this result transmitted reference [...] 5.4 See_Comment L [Autom ated code = 2266) message] The system which generated this result transmitted reference range : 6.0 - 8.3 gm/dL . The reference range was not used to interpr et this result as normal/abnormal . ISSA (test code = ISSA) Housekeeping/Laundry Supervisor ID - PIAYA L Lab Interpretation Abnormal (test code = 70275-0) [facility] USCProtein [facility], [id number] 14:18:00 Test Item Value Reference Range Interpretation Comments Albumin Fraction 2.5 See_Comment L [Automated (test code = 405) message] [employer] system which generated this result transmitted reference range : 3.5 - 5.5 gm/dL . The reference range was not used to interpr et this result as normal/abnormal . Alpha 1 Fraction 0.3 See_Comment [Automated (test code = 389) message] [employer] system which generated this result transmitted reference range : 0.2 - 0.4 gm/dL . The reference range was not used to interpr et this result as normal/abnormal . Alpha 2 Fraction 0.8 See_Comment [Automated (test code = 390) message] [employer] system which generated this result transmitted reference [...] normal/abnormal . ISSA (test code = ISSA) Housekeeping/Laundry Supervisor ID - PIAYA L Lab Interpretation Abnormal (test code = 43815-7) [facility] USCProtein [facility], [id number] 14:18:00 Test Item Value Reference Range Interpretation Comments Albumin Fraction 2.5 See_Comment L [Automated (test code = 405) message] [employer] system which generated this result transmitted reference range : 3.5 - 5.5 gm/dL . The reference range was not used to interpr et this result as normal/abnormal . Alpha 1 Fraction 0.3 See_Comment [Automated (test code = 389) message] [employer] system which generated this result transmitted reference range : 0.2 - 0.4 gm/dL . The reference range was not used to interpr et this result as normal/abnormal . Alpha 2 Fraction 0.8 See_Comment [Automated (test code = 390) message] [employer] system which generated this result transmitted reference [...] 5.4 See_Comment L [Autom ated code = 3675) message] The system which generated this result transmitted reference range : 6.0 - 8.3 gm/dL . The reference range was not used to interpr et this result as normal/abnormal . ISSA (test code = ISSA) Housekeeping/Laundry Supervisor ID - PIAYA L Lab Interpretation Abnormal (test code = 89321-8) [facility] USCProtein [facility], [id number] 14:18:00 Test Item Value Reference Range Interpretation Comments Albumin Fraction 2.5 See_Comment L [Automated (test code = 405) message] [employer] system which generated this result transmitted reference range : 3.5 - 5.5 gm/dL . The reference range was not used to interpr et this result as normal/abnormal . Alpha 1 Fraction 0.3 See_Comment [Automated (test code = 389) message] [employer] system which generated this result transmitted reference range : 0.2 - 0.4 gm/dL . The reference range was not used to interpr et this result as normal/abnormal . Alpha 2 Fraction 0.8 See_Comment [Automated (test code = 390) message] [employer] system which generated this result transmitted reference [...] normal/abnormal . ISSA (test code = ISSA) Housekeeping/Laundry Supervisor ID - PIAYA L Lab Interpretation Abnormal (test code = 89570-1) [facility] USCPROTEIN ELECTROPHORESIS, [id number] 14:18:00 Test Item Value Reference Range Interpretation [...] of acute inflammation. No monoclonal bands detected. [id number] Angela Howe MD (BEAKER) (test code = (electronic signature) 2616) PROTEIN TOTAL SERUM, 5.4 gm/dL 6.0-8.3 L SPEP (BEAKER) (test code = 2660) Housekeeping/Laundry Supervisor ID - PAVEL LANAEROBIC [id number] 14:06:00 Test Item Value Reference Range Interpretation Comments CULTURE (BEAKER) (test No anaerobes isolated code = 1095) ANAEROBIC [id number] 14:05:00 Test Item Value Reference Range Interpretation Comments CULTURE (BEAKER) (test No anaerobes isolated code = 1095) POCT-GLUCOSE [id number] 11:50:00 Test Item Value Reference Range Interpretation Comments POC-GLUCOSE METER 151 mg/dL 70-110 H : TESTED A T [facility] [address] (CECILIO) (test code [address], = 1538) [facility] [place] [address]: Housekeeping/Laundry Supervisor/Techni cornelia ID = [id number] for Buff ord, Jesi ANG, NON-TUNNELED CATH/PICC >5 Y.O. 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 Okay to place per [facility] : 1975 Sex: MFINAL REPORT Procedure: PICC line insertion. History: Need for long-term IV access. Radiation Engineer: Charlie Grigsby MD. Braille Typist: None Modality: Sonography and fluoroscopy. DOSE REDUCTION: [...] and fluoroscopic guided placement of a 5 [place] dual lumen PICC line via a right mid upper arm brachial vein approach with the catheter tip in distal SVC/RA, a satisfactory position for use. Thank you for the opportunity to assist in the care of your patient. Signed: Charlie Grigsby MDReport Verified Date/Time: 04/05/2020 11:32:55 Reading Location: [facility] Radiology Reading Room IR PICC line placement older than 5 [id number] 11:32:00 Interface, External Ris In - 04/05/2020 11:35 AM CSTFINAL REPORT Procedure: PICC line insertion. History: Need for long-term IV access. Radiation Engineer: Charlie Grigsby MD. Braille Typist: None Modality: Sonography and fluoroscopy. DOSE REDUCTION: [...] and fluoroscopic guided placement of a 5 [place] dual lumen PICC line via a right mid upper arm brachial vein approach with the catheter tip in distal SVC/RA, a satisfactory position for use. Thank you for the opportunity to assist in the care of your patient. Signed: Charlie Grigsby MDReport Verified Date/Time: 04/05/2020 11:32:55 Reading Location: [facility] than 5 [id number] 11:32:00 Interface, External Ris In - 04/05/2020 11:35 AM CSTFINAL REPORT Procedure: PICC line insertion. History: Need for long-term IV access. Radiation Engineer: Charlie Grigsby MD. Braille Typist: None Modality: Sonography and fluoroscopy. DOSE REDUCTION: [...] and fluoroscopic guided placement of a 5 [place] dual lumen PICC line via a right mid upper arm brachial vein approach with the catheter tip in distal SVC/RA, a satisfactory position for use. Thank you for the opportunity to assist in the care of your patient. Signed: Charlie Grigsby MDReport Verified Date/Time: 04/05/2020 11:32:55 Reading Location: [facility] Radiology [facility] older than 5 [id number] 11:32:00 Interface, External Ris In - 04/05/2020 11:35 AM CSTFINAL REPORT Procedure: PICC line insertion. History: Need for long-term IV access. Radiation Engineer: Charlie Grigsby MD. Braille Typist: None Modality: Sonography and fluoroscopy. DOSE REDUCTION: [...] and fluoroscopic guided placement of a 5 [place] dual lumen PICC line via a right mid upper arm brachial vein approach with the catheter tip in distal SVC/RA, a satisfactory position for use. Thank you for the opportunity to assist in the care of your patient. Signed: Charlie Grigsby MDReport Verified Date/Time: 04/05/2020 11:32:55 Reading Location: [facility] Radiology [facility] older than 5 [id number] 11:32:00 Interface, External Ris In - 04/05/2020 11:35 AM CSTFINAL REPORT Procedure: PICC line insertion. History: Need for long-term IV access. Radiation Engineer: Charlie Grigsby MD. Braille Typist: None Modality: Sonography and fluoroscopy. DOSE REDUCTION: [...] and fluoroscopic guided placement of a 5 [place] dual lumen PICC line via a right mid upper arm brachial vein approach with the catheter tip in distal SVC/RA, a satisfactory position for use. Thank you for the opportunity to assist in the care of your patient. Signed: Charlie Grigsby MDReport Verified Date/Time: 04/05/2020 11:32:55 Reading Location: [facility] Radiology Reading Room [facility] [id number] 09:34:00 Test Item Value Reference Range Interpretation Comments POC-GLUCOSE METER 72 mg/dL 70-110 : TESTED A T [facility] [address] (BEAKER) (test code = [address], 1538) [facility] [address]: Housekeeping/Laundry Supervisor/Techni cornelia ID = [id number] for Chencho Rina marie POCT-GLUCOSE [id number] 08:11:00 Test Item Value Reference Range Interpretation Comments POC-GLUCOSE METER 83 mg/dL 70-110 : TESTED A T [facility] [address] (BEAKER) (test code = [address], 1538) [facility] [address]: Housekeeping/Laundry Supervisor/Techni cornelia ID = [id number] for Buff ord, Jesi BASIC METABOLIC [id number] 06:57:00 Test Item Value Reference Range Interpretation [...] S NOT APPLICABLE FOR DIALYSIS PATIEN TS. Housekeeping/Laundry Supervisor ID - LITOOperator ID - LITOOperator ID - LITOOperator ID - LITOOperator ID - LITOOperator ID - LITOOperator ID - LITOOperator ID - LITOOperator ID - LITOOperator ID - LITOOperator ID - LITOOperator ID - LITOOperator ID - LITOCBC W/PLT COUNT & AUTO [id number] 05:55:00 Test Item Value Reference Range Interpretation [...] = No growth in 5 days 6463-4) [facility] Culture - Routine (Left Venipuncture) 2020-04-05 01:01:00 Test Item Value Reference Range Interpretation Comments Result (test code = No growth in 5 days 6463-4) [facility] Culture - Routine (Left Venipuncture) 2020-04-05 01:01:00 Test Item Value Reference Range Interpretation Comments Result (test code = No growth in 5 days 6463-4) [facility] Culture - Routine (Left Venipuncture) 2020-04-05 01:01:00 Test Item Value Reference Range Interpretation Comments Result (test code = No growth in 5 days 6463-4) [facility] Culture - Routine (Left Venipuncture) 2020-04-05 01:01:00 Test Item Value Reference Range Interpretation Comments Result (test code = No growth in 5 days 6463-4) [facility] Culture - Routine (Left Venipuncture) 2020-04-05 01:01:00 Test Item Value Reference Range Interpretation Comments Result (test code = No growth in 5 days 6463-4) [facility] Culture - Routine (Left Venipuncture) 2020-04-05 01:01:00 Test Item Value Reference Range Interpretation Comments Result (test code = No growth in 5 days 6463-4) [facility] [id number] 01:01:00 Test Item Value Reference Range Interpretation Comments CULTURE (BEAKER) (test No growth in 5 days code = 1095) BLOOD [id number] 01:01:00 Test Item Value Reference Range Interpretation Comments CULTURE (BEAKER) (test No growth in 5 days code = 1095) Vancomycin level, [id number] 00:11:00 Test Item Value Reference Range Interpretation Comments Vancomycin Tr (test code = 17.1 ug/mL 10-20 4092-3) ISSA (test code = ISSA) Housekeeping/Laundry Supervisor ID - ARCHIE Lab Interpretation (test Normal code = 45914-7) [facility] [id number] 00:11:00 Test Item Value Reference Range Interpretation Comments Vancomycin Tr (test code = 17.1 ug/mL 10-20 4092-3) ISSA (test code = ISSA) Housekeeping/Laundry Supervisor ID - ARCHIE Lab Interpretation (test Normal code = 62573-6) [facility] [id number] 00:11:00 Test Item Value Reference Range Interpretation Comments Vancomycin Tr (test code = 17.1 ug/mL 10-20 4092-3) ISSA (test code = ISSA) Housekeeping/Laundry Supervisor ID - ARCHIE Lab Interpretation (test Normal code = 59670-7) [facility], [id number] 00:11:00 Test Item Value Reference Range Interpretation Comments Vancomycin Tr (test code = 17.1 ug/mL 10-20 4092-3) ISSA (test code = ISSA) Housekeeping/Laundry Supervisor ID - ARCHIE Lab Interpretation (test Normal code = 73550-7) [facility], [id number] 00:11:00 Test Item Value Reference Range Interpretation Comments Vancomycin Tr (test code = 17.1 ug/mL 10.0-20.0 4092-3) ISSA (test code = ISSA) Housekeeping/Laundry Supervisor ID - ARCHIE Lab Interpretation (test Normal code = 56745-3) [facility], [id number] 00:11:00 Test Item Value Reference Range Interpretation Comments Vancomycin Tr (test code = 17.1 ug/mL 10.0-20.0 4092-3) ISSA (test code = ISSA) Housekeeping/Laundry Supervisor ID - ARCHIE Lab Interpretation (test Normal code = 94425-6) [facility] [id number] 00:11:00 Test Item Value Reference Range Interpretation Comments Vancomycin Tr (test code = 17.1 ug/mL 10.0-20.0 4092-3) ISSA (test code = ISSA) Housekeeping/Laundry Supervisor ID - ARCHIE Lab Interpretation (test Normal code = 50247-1) [facility], [id number] 00:11:00 Test Item Value Reference Range Interpretation Comments VANCOMYCIN TROUGH (BEAKER) (test 17.1 ug/mL 10.0-20.0 code = 522) Housekeeping/Laundry Supervisor ID - LITOPOCT-GLUCOSE [id number] 21:26:00 Test Item Value Reference Range Interpretation Comments POC-GLUCOSE METER 234 mg/dL 70-110 H : TESTED A T [facility] [address] (BEAKER) (test code [address], = 1538) [place] [address]: Housekeeping/Laundry Supervisor/Techni cornelia ID = [id number] for Tiff Roach POCT-GLUCOSE [id number] 15:54:00 Test Item Value Reference Range Interpretation Comments POC-GLUCOSE METER 200 mg/dL 70-110 H : TESTED A T [facility] [address] (BEAKER) (test code [address], = 1538) [place] [address]: Housekeeping/Laundry Supervisor/Techni cornelia ID = [id number] for Tiff Roach POCT-GLUCOSE [id number] 11:48:00 Test Item Value Reference Range Interpretation Comments POC-GLUCOSE METER 197 mg/dL 70-110 H : TESTED A T [facility] [address] (BEAKER) (test code [address], = 1538) [place] [address]: Housekeeping/Laundry Supervisor/Techni cornelia ID = [id number] for Tiff Roach Hepatitis panel, [id number] 10:58:00 Test Item Value Reference Range Interpretation Comments Hep A IgM (test code = Nonreactive Nonreactive 67089-3) Hep B C IgM (test code = Nonreactive Nonreactive 07957-9) Hepatitis C Ab (test Nonreactive Nonreactive code = 26019-5) HBsAg Screen (test code Nonreactive Nonreactive = 5195-3) ISSA (test code = ISSA) Housekeeping/Laundry Supervisor ID - BARRERA M Lab Interpretation (test Normal code = 39207-8) [facility], [id number] 10:58:00 Test Item Value Reference Range Interpretation Comments Hep A IgM (test code = Nonreactive Nonreactive 99352-5) Hep B C IgM (test code = Nonreactive Nonreactive 45408-3) Hepatitis C Ab (test Nonreactive Nonreactive code = 49468-7) HBsAg Screen (test code Nonreactive Nonreactive = 5195-3) ISSA (test code = ISSA) Housekeeping/Laundry Supervisor ID - BARRERA M Lab Interpretation (test Normal code = 89720-0) [facility] panel, [id number] 10:58:00 Test Item Value Reference Range Interpretation Comments Hep A IgM (test code = Nonreactive Nonreactive 36174-4) Hep B C IgM (test code = Nonreactive Nonreactive 64675-0) Hepatitis C Ab (test Nonreactive Nonreactive code = 56162-3) HBsAg Screen (test code Nonreactive Nonreactive = 5195-3) ISSA (test code = ISSA) Housekeeping/Laundry Supervisor ID - BARRERA M Lab Interpretation (test Normal code = 89576-3) [facility] panel, [id number] 10:58:00 Test Item Value Reference Range Interpretation Comments Hep A IgM (test code = Nonreactive Nonreactive 81671-3) Hep B C IgM (test code = Nonreactive Nonreactive 66638-2) Hepatitis C Ab (test Nonreactive Nonreactive code = 41672-9) HBsAg Screen (test code Nonreactive Nonreactive = 5195-3) ISSA (test code = ISSA) Housekeeping/Laundry Supervisor ID - BARRERA M Lab Interpretation (test Normal code = 61256-8) [facility] panel, [id number] 10:58:00 Test Item Value Reference Range Interpretation Comments Hep A IgM (test code = Nonreactive Nonreactive 43587-0) Hep B C IgM (test code = Nonreactive Nonreactive 90559-0) Hepatitis C Ab (test Nonreactive Nonreactive code = 79259-6) HBsAg Screen (test code Nonreactive Nonreactive = 5195-3) ISSA (test code = ISSA) Housekeeping/Laundry Supervisor ID - BARRERA M Lab Interpretation (test Normal code = 64991-7) [facility] panel, [id number] 10:58:00 Test Item Value Reference Range Interpretation Comments Hep A IgM (test code = Nonreactive Nonreactive 45713-9) Hep B C IgM (test code = Nonreactive Nonreactive 23443-3) Hepatitis C Ab (test Nonreactive Nonreactive code = 25884-4) HBsAg Screen (test code Nonreactive Nonreactive = 5195-3) ISSA (test code = ISSA) Housekeeping/Laundry Supervisor ID - BARRERA M Lab Interpretation (test Normal code = 92077-6) [facility] panel, [id number] 10:58:00 Test Item Value Reference Range Interpretation Comments Hep A IgM (test code = Nonreactive Nonreactive 13484-7) Hep B C IgM (test code = Nonreactive Nonreactive 78933-8) Hepatitis C Ab (test Nonreactive Nonreactive code = 18372-7) HBsAg Screen (test code Nonreactive Nonreactive = 5195-3) ISSA (test code = ISSA) Housekeeping/Laundry Supervisor ID - BARRERA M Lab Interpretation (test Normal code = 25542-7) [facility] PANEL, [id number] 10:58:00 Test Item Value Reference Range Interpretation Comments HEPATITIS A IGM ANTIBODY (BEAKER) Nonreactive Nonreactive (test code = 498) HEPATITIS B CORE IGM ANTIBODY Nonreactive Nonreactive (BEAKER) (test code = 645) HEPATITIS C ANTIBODY (BEAKER) Nonreactive Nonreactive (test code = 367) HEPATITIS B SURFACE ANTIGEN (2) Nonreactive Nonreactive (BEAKER) (test code = 2585) Housekeeping/Laundry Supervisor ID - BARRERA MUREA NITROGEN, RANDOM [id number] 10:45:00 Test Item Value Reference Range Interpretation Comments UREA NITROGEN URINE (BEAKER) (test 528 mg/dL code = 538) Reference Range: No NormalsOperator ID - BARRERA MSURGICALLY OBTAINED CULTURE + GRAM [id number] 10:30:00 Test Item Value Reference Range Interpretation Comments CULTURE (BEAKER) A <1+ Coagula se negative (test code = Staphylococcus 1095) GRAM STAIN No WBCs RESULT (BEAKER) (test code = 1123) GRAM STAIN 2+ gram positive RESULT (BEAKER) cocci in pairs (test code = and clusters 766129) SURGICALLY OBTAINED CULTURE + GRAM [id number] 09:52:00 Test Item Value Reference Range Interpretation Comments CULTURE (BEAKER) A <1+ Viridan s (test code = Streptococcus 1095) GRAM STAIN No WBCs RESULT (BEAKER) (test code = 1123) GRAM STAIN No organisms seen RESULT (BEAKER) (test code = 917034) TISSUE [id number] 09:51:00Surgical Pathology Report Case: [id number] Authorizing Provider: Laura Nguyen DPM Collected: 04/01/2020 01:12 PM Ordering Location: [facility] Med Surg 5th Floor Received: 04/02/2020 08:38 AM Pathologist: Hilda Mack MD Specimen: Fo ot, Left, Bone biopsy 1st metatarsal, left BONE, FIRST LEFT METATARSAL, BIOPSY: - BONE WITH FOCAL REPARATIVE/REGENERATIVE CHANGES - NO ACUTE OSTEOMYELITIS ISSEEN Signing Pathologist Direct Phone Line: [phone] signed by Hilda Mack MD on 04/04/2020 at 9:51 [id number]; [id number] infectionBone biopsy first metatarsal, leftThespecimen is received in fixative and labeled with the patient's name, medical record number and designated as "foot left" and consists of a bone core biopsy measuring 1.5 cm in length and 0.2 cm in diameter. The specimen is entirely submitted into A1 and into decal solution. MG/pl Performed [facility], Department of Pathology, [address] [place] [address], [facility], Department of Pathology, [address] [place] [address], [facility], [address] [place] [address], DFDZ-GLUCOSE METER 2020-04-04 08:22:00 Test Item Value Reference Range Interpretation Comments POC-GLUCOSE METER 167 mg/dL 70-110 H : TESTED A T [facility] [address] (BEAKER) (test code [address], = 1538) [place] [address]: Housekeeping/Laundry Supervisor/Techni cornelia ID = [id number] for Tiff Roach PTH, [id number] 07:24:00 Test Item Value Reference Range Interpretation Comments PARATHYROID HORMONE INTACT 365.7 pg/mL 15.0-90.0 H (BEAKER) (test code = 577) Housekeeping/Laundry Supervisor ID - [id number] METABOLIC [id number] 06:33:00 Test Item Value Reference Range Interpretation [...] S NOT APPLICABLE FOR DIALYSIS PATIEN TS. Housekeeping/Laundry Supervisor ID - [id number] ID - [id number] ID - [id number] ID - [id number] ID - [id number] ID - [id number] ID - [id number] ID - [id number] ID - [id number] ID - [id number] ID - [id number] ID - [id number] ID - [id number] W/PLT COUNT & AUTO [id number] 06:01:00 Test Item Value Reference Range Interpretation [...] PERCENT (BEAKER) (test code = 2801) POCT-GLUCOSE [id number] 21:43:00 Test Item Value Reference Range Interpretation Comments POC-GLUCOSE METER 242 mg/dL 70-110 H : TESTED A T [facility] [address] (BEAKER) (test code [address], = 1538) [facility] [address]: Housekeeping/Laundry Supervisor/Techni cornelia ID = [id number] for Heidy Barrow HIV-1 Antigen with HIV-1/2 [id number] 18:37:00 Test Item Value Reference Range Interpretation Comments HIV-1 Antigen with HIV Nonreactive Nonreactive 1&2 Antibody (test code = 56005-0) ISSA (test code = ISSA) Housekeeping/Laundry Supervisor ID - [id number] Lab Interpretation (test Normal code = 36446-5) [facility] Antigen with HIV-1/2 [id number] 18:37:00 Test Item Value Reference Range Interpretation Comments HIV-1 Antigen with HIV Nonreactive Nonreactive 1&2 Antibody (test code = 57305-5) ISSA (test code = ISSA) Housekeeping/Laundry Supervisor ID - [id number] Lab Interpretation (test Normal code = 03048-4) [facility] Antigen with HIV-1/2 [id number] 18:37:00 Test Item Value Reference Range Interpretation Comments HIV-1 Antigen with HIV Nonreactive Nonreactive 1&2 Antibody (test code = 90667-8) ISSA (test code = ISSA) Housekeeping/Laundry Supervisor ID - [id number] Lab Interpretation (test Normal code = 18509-5) [facility] Antigen with HIV-1/2 [id number] 18:37:00 Test Item Value Reference Range Interpretation Comments HIV-1 Antigen with HIV Nonreactive Nonreactive 1&2 Antibody (test code = 34863-2) ISSA (test code = ISSA) Housekeeping/Laundry Supervisor ID - [id number] Lab Interpretation (test Normal code = 00785-8) [facility] Antigen with HIV-1/2 [id number] 18:37:00 Test Item Value Reference Range Interpretation Comments HIV-1 Antigen with HIV Nonreactive Nonreactive 1&2 Antibody (test code = 80388-7) ISSA (test code = ISSA) Housekeeping/Laundry Supervisor ID - [id number] Lab Interpretation (test Normal code = 69600-2) [facility] Antigen with HIV-1/2 [id number] 18:37:00 Test Item Value Reference Range Interpretation Comments HIV-1 Antigen with HIV Nonreactive Nonreactive 1&2 Antibody (test code = 92315-3) ISSA (test code = ISSA) Housekeeping/Laundry Supervisor ID - [id number] Lab Interpretation (test Normal code = 52985-1) [facility] Antigen with HIV-1/2 [id number] 18:37:00 Test Item Value Reference Range Interpretation Comments HIV-1 Antigen with HIV Nonreactive Nonreactive 1&2 Antibody (test code = 25957-7) ISSA (test code = ISSA) Housekeeping/Laundry Supervisor ID - [id number] Lab Interpretation (test Normal code = 84893-7) [facility] ANTIGEN WITH HIV-1/2 [id number] 18:37:00 Test Item Value Reference Range Interpretation Comments HIV-1 ANTIGEN WITH HIV 1\\T\\2 Nonreactive Nonreactive ANTIBODY (2) (BEAKER) (test code = 2586) Housekeeping/Laundry Supervisor ID - [id number] METABOLIC [id number] 17:38:00 Test Item Value Reference Range Interpretation [...] S NOT APPLICABLE FOR DIALYSIS PATIEN TS. Housekeeping/Laundry Supervisor ID - [id number] ID - [id number] ID - [id number] ID - [id number] ID - [id number] ID - [id number] ID - [id number] ID - [id number] ID - [id number] ID - [id number] ID - [id number] ID - [id number] ID - [id number] W/PLT COUNT & AUTO [id number] 17:24:00 Test Item Value Reference Range Interpretation [...] PERCENT (BEAKER) (test code = 2801) POCT-GLUCOSE [id number] 16:16:00 Test Item Value Reference Range Interpretation Comments POC-GLUCOSE METER 228 mg/dL 70-110 H : TESTED A T [facility] [address] (BEAKER) (test code [address], = 1538) [facility] [place] [address]: Housekeeping/Laundry Supervisor/Techni cornelia ID = [id number] for Tiff Roach WOUND CULTURE + GRAM [id number] 14:46:00 Test Item Value Reference Interpretation Comments [...] 4+ Mixed geri (BEAKER) (test code = 962164) 3+ Skin floraPOCT-GLUCOSE [id number] 11:46:00 Test Item Value Reference Range Interpretation Comments POC-GLUCOSE METER 251 mg/dL 70-110 H : TESTED A T [facility] [address] (BEAKER) (test code [address], = 1538) [facility] [place] [address]: Housekeeping/Laundry Supervisor/Techni cornelia ID = [id number] for Tiff Roach PROTEIN, RANDOM [id number] 11:18:00 Test Item Value Reference Range Interpretation Comments PROTEIN, URINE (BEAKER) (test code 214 mg/dL 0-14 H = 1569) Housekeeping/Laundry Supervisor ID - [id number] ID - [id number], RANDOM [id number] 11:02:00 Test Item Value Reference Range Interpretation Comments CREATININE URINE (BEAKER) (test 129.1 mg/dL code = 375) Reference Range: No NormalsOperator ID - [id number], RANDOM [id number] 11:00:00 Test Item Value Reference Range Interpretation Comments SODIUM URINE (BEAKER) (test code = 20 meq/L 243) Reference Range: No NormalsOperator ID - [id number] 11:00:00 Test Item Value Reference Range Interpretation Comments PHOSPHORUS (BEAKER) (test code = 5.0 mg/dL 2.5-4.5 H 604) Housekeeping/Laundry Supervisor ID - [id number] w/Fvndilrcxwi7699-81-40 10:57:00 Test Item Value Reference Range Interpretation Comments Color, UA (test code Yellow = 5778-6) Clarity, UA (test Slightly Cloudy code = 5767-9) Specific [place], UA 1.025 1.001-1.035 (test code = 5811-5) pH, UA (test code = 5.0 5.0-8.0 5803-2) Protein, UA (test 100 mg/dL Negative A code = 80301-9) Glucose, UA (test Negative Negative code = 365) Ketones, UA (test Negative Negative code = 2514-8) Bilirubin, UA (test Negative Negative code = 00740-2) Blood, UA (test code Small Negative A = 06159-3) Nitrite, UA (test Negative Negative code = 5802-4) Leukocytes, UA (test Negative Negative code = 5799-2) Urobilinogen, UA 0.2 mg/dL 0.2-1 (test code = 39179-8) Bacteria, UA (test Occasional code = 54306-5) RBC, UA (test code = 5-10 See_Comment [Autom ated 799-7) message] The system which generated this result transmitted reference range : /HPF. The reference range was not used to interpret this result as normal/abnormal . WBC, UA (test code = <5 See_Comment [Autom ated 68856-3) message] The system which generated this result transmitted reference range : /HPF. The reference range was not used to interpret this result as normal/abnormal . SQUAMOUS EPITHELIAL <5 See_Comment [Automa josé luis (test code = 83543-8) messag e] The system which generated this result transmitted reference range : /HPF. The reference range was not used to interpret this result as normal/abnormal . Specimen Source (test code = 2795) Lab Interpretation Abnormal (test code = 72786-7) [facility] w/Cehgxkrethj4548-41-70 10:57:00 Test Item Value Reference Range Interpretation Comments Color, UA (test code Yellow = 5778-6) Clarity, UA (test Slightly Cloudy code = 5767-9) Specific [place], UA 1.025 1.001-1.035 (test code = 5811-5) pH, UA (test code = 5.0 5.0-8.0 5803-2) Protein, UA (test 100 mg/dL Negative A code = 61537-4) Glucose, UA (test Negative Negative code = 365) Ketones, UA (test Negative Negative code = 2514-8) Bilirubin, UA (test Negative Negative code = 11115-2) Blood, UA (test code Small Negative A = 54216-8) Nitrite, UA (test Negative Negative code = 5802-4) Leukocytes, UA (test Negative Negative code = 5799-2) Urobilinogen, UA 0.2 mg/dL 0.2-1 (test code = 51221-5) Bacteria, UA (test Occasional code = 37494-9) RBC, UA (test code = 5-10 See_Comment [Autom ated 799-7) message] The system which generated this result transmitted reference range : /HPF. The reference range was not used to interpret this result as normal/abnormal . WBC, UA (test code = <5 See_Comment [Autom ated 12611-4) message] The system which generated this result transmitted reference range : /HPF. The reference range was not used to interpret this result as normal/abnormal . SQUAMOUS EPITHELIAL <5 See_Comment [Automa josé luis (test code = 97419-1) messag e] The system which generated this result transmitted reference range : /HPF. The reference range was not used to interpret this result as normal/abnormal . Specimen Source (test code = 2795) Lab Interpretation Abnormal (test code = 58450-3) [facility]/[id number] 10:57:00 Test Item Value Reference Range Interpretation Comments Color, UA (test code Yellow = 5778-6) Clarity, UA (test Slightly Cloudy code = 5767-9) Specific [place], UA 1.025 1.001-1.035 (test code = 5811-5) pH, UA (test code = 5.0 5.0-8.0 5803-2) Protein, UA (test 100 mg/dL Negative A code = 38369-2) Glucose, UA (test Negative Negative code = 365) Ketones, UA (test Negative Negative code = 2514-8) Bilirubin, UA (test Negative Negative code = 90369-2) Blood, UA (test code Small Negative A = 13687-5) Nitrite, UA (test Negative Negative code = 5802-4) Leukocytes, UA (test Negative Negative code = 5799-2) Urobilinogen, UA 0.2 mg/dL 0.2-1 (test code = 16132-4) Bacteria, UA (test Occasional code = 88097-0) RBC, UA (test code = 5-10 See_Comment [Autom ated 799-7) message] The system which generated this result transmitted reference range : /HPF. The reference range was not used to interpret this result as normal/abnormal . WBC, UA (test code = <5 See_Comment [Autom ated 47353-8) message] The system which generated this result transmitted reference range : /HPF. The reference range was not used to interpret this result as normal/abnormal . SQUAMOUS EPITHELIAL <5 See_Comment [Automa josé luis (test code = 84813-8) messag e] The system which generated this result transmitted reference range : /HPF. The reference range was not used to interpret this result as normal/abnormal . Specimen Source (test code = 2795) Lab Interpretation Abnormal (test code = 24645-5) [facility] w/Xgprsvkyjyx5590-42-25 10:57:00 Test Item Value Reference Range Interpretation Comments Color, UA (test code Yellow = 5778-6) Clarity, UA (test Slightly Cloudy code = 5767-9) Specific [place], UA 1.025 1.001-1.035 (test code = 5811-5) pH, UA (test code = 5.0 5.0-8.0 5803-2) Protein, UA (test 100 mg/dL Negative A code = 91843-5) Glucose, UA (test Negative Negative code = 365) Ketones, UA (test Negative Negative code = 2514-8) Bilirubin, UA (test Negative Negative code = 30396-7) Blood, UA (test code Small Negative A = 15043-8) Nitrite, UA (test Negative Negative code = 5802-4) Leukocytes, UA (test Negative Negative code = 5799-2) Urobilinogen, UA 0.2 mg/dL 0.2-1.0 (test code = 19071-6) Bacteria, UA (test Occasional code = 51970-8) RBC, UA (test code = 5-10 See_Comment [Autom ated 799-7) message] The system which generated this result transmitted reference range : /HPF. The reference range was not used to interpret this result as normal/abnormal . WBC, UA (test code = <5 See_Comment [Autom ated 85904-3) message] The system which generated this result transmitted reference range : /HPF. The reference range was not used to interpret this result as normal/abnormal . SQUAMOUS EPITHELIAL <5 See_Comment [Automa josé luis (test code = 28662-0) messag e] The system which generated this result transmitted reference range : /HPF. The reference range was not used to interpret this result as normal/abnormal . Specimen Source (test code = 2795) Lab Interpretation Abnormal (test code = 66061-4) [facility] w/Cbtafvwqxib0066-53-98 10:57:00 Test Item Value Reference Range Interpretation Comments Color, UA (test code Yellow = 5778-6) Clarity, UA (test Slightly Cloudy code = 5767-9) Specific [place], UA 1.025 1.001-1.035 (test code = 5811-5) pH, UA (test code = 5.0 5.0-8.0 5803-2) Protein, UA (test 100 mg/dL Negative A code = 40592-9) Glucose, UA (test Negative Negative code = 365) Ketones, UA (test Negative Negative code = 2514-8) Bilirubin, UA (test Negative Negative code = 31316-8) Blood, UA (test code Small Negative A = 48636-5) Nitrite, UA (test Negative Negative code = 5802-4) Leukocytes, UA (test Negative Negative code = 5799-2) Urobilinogen, UA 0.2 mg/dL 0.2-1.0 (test code = 34593-9) Bacteria, UA (test Occasional code = 55455-8) RBC, UA (test code = 5-10 See_Comment [Autom ated 799-7) message] The system which generated this result transmitted reference range : /HPF. The reference range was not used to interpret this result as normal/abnormal . WBC, UA (test code = <5 See_Comment [Autom ated 89554-7) message] The system which generated this result transmitted reference range : /HPF. The reference range was not used to interpret this result as normal/abnormal . SQUAMOUS EPITHELIAL <5 See_Comment [Automa josé luis (test code = 08359-6) messag e] The system which generated this result transmitted reference range : /HPF. The reference range was not used to interpret this result as normal/abnormal . Specimen Source (test code = 2795) Lab Interpretation Abnormal (test code = 01771-7) [facility] w/Tozlheyvqfa4068-63-95 10:57:00 Test Item Value Reference Range Interpretation Comments Color, UA (test code Yellow = 5778-6) Clarity, UA (test Slightly Cloudy code = 5767-9) Specific [place], UA 1.025 1.001-1.035 (test code = 5811-5) pH, UA (test code = 5.0 5.0-8.0 5803-2) Protein, UA (test 100 mg/dL Negative A code = 81079-3) Glucose, UA (test Negative Negative code = 365) Ketones, UA (test Negative Negative code = 2514-8) Bilirubin, UA (test Negative Negative code = 97991-6) Blood, UA (test code Small Negative A = 00498-6) Nitrite, UA (test Negative Negative code = 5802-4) Leukocytes, UA (test Negative Negative code = 5799-2) Urobilinogen, UA 0.2 mg/dL 0.2-1.0 (test code = 63479-3) Bacteria, UA (test Occasional code = 46349-8) RBC, UA (test code = 5-10 See_Comment [Autom ated 799-7) message] The system which generated this result transmitted reference range : /HPF. The reference range was not used to interpret this result as normal/abnormal . WBC, UA (test code = <5 See_Comment [Autom ated 05889-1) message] The system which generated this result transmitted reference range : /HPF. The reference range was not used to interpret this result as normal/abnormal . SQUAMOUS EPITHELIAL <5 See_Comment [Automa josé luis (test code = 93985-4) messag e] The system which generated this result transmitted reference range : /HPF. The reference range was not used to interpret this result as normal/abnormal . Specimen Source (test code = 2795) Lab Interpretation Abnormal (test code = 80092-1) [facility] w/Gifgjtmmovo8195-27-15 10:57:00 Test Item Value Reference Range Interpretation Comments Color, UA (test code Yellow = 5778-6) Clarity, UA (test Slightly Cloudy code = 5767-9) Specific [place], UA 1.025 1.001-1.035 (test code = 5811-5) pH, UA (test code = 5.0 5.0-8.0 5803-2) Protein, UA (test 100 mg/dL Negative A code = 93143-0) Glucose, UA (test Negative Negative code = 365) Ketones, UA (test Negative Negative code = 2514-8) Bilirubin, UA (test Negative Negative code = 66697-7) Blood, UA (test code Small Negative A = 88899-6) Nitrite, UA (test Negative Negative code = 5802-4) Leukocytes, UA (test Negative Negative code = 5799-2) Urobilinogen, UA 0.2 mg/dL 0.2-1 (test code = 99945-3) Bacteria, UA (test Occasional code = 12064-5) RBC, UA (test code = 5-10 See_Comment [Autom ated 799-7) message] The system which generated this result transmitted reference range : /HPF. The reference range was not used to interpret this result as normal/abnormal . WBC, UA (test code = <5 See_Comment [Autom ated 00938-9) message] The system which generated this result transmitted reference range : /HPF. The reference range was not used to interpret this result as normal/abnormal . SQUAMOUS EPITHELIAL <5 See_Comment [Automa josé luis (test code = 88573-8) messag e] The system which generated this result transmitted reference range : /HPF. The reference range was not used to interpret this result as normal/abnormal . Specimen Source (test code = 2795) Lab Interpretation Abnormal (test code = 82178-7) [facility]/ [id number] 10:57:00 Test Item Value Reference Range Interpretation [...] pg/mL 0-100 H (test code = 700) Housekeeping/Laundry Supervisor ID - [id number], RENAL, [id number] 08:56:00Reason for exam:- >[facility] : 1975 Sex: MFINAL [...] consistent with intrinsic renal disease. Signed: Jerome Ortizeport Verified Date/Time: 04/03/2020 08:56:12 Reading Location: [facility] Radiology Reading Room CT, EXTREMITY, LOWER WITHOUT CONTRAST, [id number] 08:50:00Unlisted Reason for Exam - Click Yes and Enter Reason Below->YesL Foot woundUnlisted Reason for Exam->L Foot infection to r/o osteomyelitisPlease specify:->Foot [facility] : 1975 Sex: [...] MDReport Verified Date/Time: 04/03/2020 08:50:03 Reading Location: [facility] B1 C013X Ortho Consult Reading Room CT lower extremity without IV contrast [id number] 08:50:00Interface, External Ris In - 04/03/2020 8:52 [...] Gonzales Verified Date/Time: 04/03/2020 08:50:03 Reading Location: [address] [facility] [id number] 08:50:00 Interface, External Ris In - 04/03/2020 [...] Gonzales Verified Date/Time: 04/03/2020 08:50:03 Reading Location: [facility] C013X [facility] [id number] 08:50:00Interface, External Ris In - 04/03/2020 8:52 [...] Gonzales Verified Date/Time: 04/03/2020 08:50:03 Reading Location: [facility] B1 C013X [facility] [id number] 08:50:00Interface, External Ris In - 04/03/2020 8:52 [...] Gonzales Verified Date/Time: 04/03/2020 08:50:03 Reading Location: [address] Ortho Consult Reading Room [facility] POCT-GLUCOSE [id number] 07:39:00 Test Item Value Reference Range Interpretation Comments POC-GLUCOSE METER 178 mg/dL 70-110 H : TESTED A T [address] (BEAKER) (test code [address], = 1538) [facility] 77 478: Housekeeping/Laundry Supervisor/Techni cornelia ID = [id number] for Tim rodriguezTiff BASIC METABOLIC [id number] 06:16:00 Test Item Value Reference Range Interpretation [...] S NOT APPLICABLE FOR DIALYSIS PATIEN TS. Housekeeping/Laundry Supervisor ID - LITOOperator ID - LITOOperator ID - LITOOperator ID - LITOOperator ID - LITOOperator ID - LITOOperator ID - LITOOperator ID - LITOOperator ID - LITOOperator ID - LITOOperator ID - LITOOperator ID - LITOOperator ID - LITOCBC (Hemogram only)2020-04-03 05:47:00 Test Item Value Reference Range Interpretation Comments WBC (test code = 6690-2) 8.9 See_Comment [A utomated message] The system RECESS. generated this result transmitted ref erence range: 4.0 - 10 .0 K/L. The refe rence range was not u sed to interpret this result as normal/abnor mal. RBC (test code = 789-8) 3.59 See_Comment L [Au tomated message] The system RECESS. generated this result transmitted ref erence range: 4.20 - 5 .80 M/L. The refe rence range was not u sed to interpret this result as normal/abnor mal. MCHC (test code = 786-4) 32.4 See_Comment L [A utomated message] The system RECESS. generated this result transmitted ref erence range: [...] See_Comment [Aut omated message] 777-3) The system RECESS. generated this result transmitted ref erence range: 150 - 43 0 K/CU MM. The referen ce range was not u sed to interpret this result as normal/abnor mal. MPV (test code = 11.7 fL 6-11.5 H 43358-8) nRBC (test code = 413) 0 See_Comment [Aut omated message] The system RECESS. generated this result transmitted ref erence range: 0 - 0 /1 00 WBC. The refere nce range was not u sed to interpret this result as normal/abnor mal. Lab Interpretation (test Abnormal code = 27162-4) [facility]2020-04-03 05:47:00 Test Item Value Reference Range Interpretation Comments WBC (test code = 6690-2) 8.9 See_Comment [A utomated message] The system RECESS. generated this result transmitted ref erence range: 4.0 - 10 .0 K/L. The refe rence range was not u sed to interpret this result as normal/abnor mal. RBC (test code = 789-8) 3.59 See_Comment L [Au tomated message] The system RECESS. generated this result transmitted ref erence range: 4.20 - 5 .80 M/L. The refe rence range was not u sed to interpret this result as normal/abnor mal. MCHC (test code = 786-4) 32.4 See_Comment L [A utomated message] The system RECESS. generated this result transmitted ref erence range: [...] See_Comment [Aut omated message] 777-3) The system RECESS. generated this result transmitted ref erence range: 150 - 43 0 K/CU MM. The referen ce range was not u sed to interpret this result as normal/abnor mal. MPV (test code = 11.7 fL 6-11.5 H 20085-2) nRBC (test code = 413) 0 See_Comment [Aut omated message] The system RECESS. generated this result transmitted ref erence range: 0 - 0 /1 00 WBC. The refere nce range was not u sed to interpret this result as normal/abnor mal. Lab Interpretation (test Abnormal code = 24940-1) [facility] (Hemogram only)2020-04-03 05:47:00 Test Item Value Reference Range Interpretation Comments WBC (test code = 6690-2) 8.9 See_Comment [A utomated message] The system RECESS. generated this result transmitted ref erence range: 4.0 - 10 .0 K/L. The refe rence range was not u sed to interpret this result as normal/abnor mal. RBC (test code = 789-8) 3.59 See_Comment L [Au tomated message] The system RECESS. generated this result transmitted ref erence range: 4.20 - 5 .80 M/L. The refe rence range was not u sed to interpret this result as normal/abnor mal. MCHC (test code = 786-4) 32.4 See_Comment L [A utomated message] The system RECESS. generated this result transmitted ref erence range: [...] See_Comment [Aut omated message] 777-3) The system RECESS. generated this result transmitted ref erence range: 150 - 43 0 K/CU MM. The referen ce range was not u sed to interpret this result as normal/abnor mal. MPV (test code = 11.7 fL 6.0-11.5 H 94435-8) nRBC (test code = 413) 0 See_Comment [Aut omated message] The system RECESS. generated this result transmitted ref erence range: 0 - 0 /1 00 WBC. The refere nce range was not u sed to interpret this result as normal/abnor mal. Lab Interpretation (test Abnormal code = 37146-4) [facility] (Hemogram only)2020-04-03 05:47:00 Test Item Value Reference Range Interpretation Comments WBC (test code = 6690-2) 8.9 See_Comment [A utomated message] The system RECESS. generated this result transmitted ref erence range: 4.0 - 10 .0 K/L. The refe rence range was not u sed to interpret this result as normal/abnor mal. RBC (test code = 789-8) 3.59 See_Comment L [Au tomated message] The system RECESS. generated this result transmitted ref erence range: 4.20 - 5 .80 M/L. The refe rence range was not u sed to interpret this result as normal/abnor mal. MCHC (test code = 786-4) 32.4 See_Comment L [A utomated message] The system RECESS. generated this result transmitted ref erence range: [...] See_Comment [Aut omated message] 777-3) The system RECESS. generated this result transmitted ref erence range: 150 - 43 0 K/CU MM. The referen ce range was not u sed to interpret this result as normal/abnor mal. MPV (test code = 11.7 fL 6.0-11.5 H 31873-2) nRBC (test code = 413) 0 See_Comment [Aut omated message] The system RECESS. generated this result transmitted ref erence range: 0 - 0 /1 00 WBC. The refere nce range was not u sed to interpret this result as normal/abnor mal. Lab Interpretation (test Abnormal code = 96178-1) [facility] (Hemogram only)2020-04-03 05:47:00 Test Item Value Reference Range Interpretation Comments WBC (test code = 6690-2) 8.9 See_Comment [A utomated message] The system RECESS. generated this result transmitted ref erence range: 4.0 - 10 .0 K/L. The refe rence range was not u sed to interpret this result as normal/abnor mal. RBC (test code = 789-8) 3.59 See_Comment L [Au tomated message] The system RECESS. generated this result transmitted ref erence range: 4.20 - 5 .80 M/L. The refe rence range was not u sed to interpret this result as normal/abnor mal. MCHC (test code = 786-4) 32.4 See_Comment L [A utomated message] The system RECESS. generated this result transmitted ref erence range: [...] See_Comment [Aut omated message] 777-3) The system RECESS. generated this result transmitted ref erence range: 150 - 43 0 K/CU MM. The referen ce range was not u sed to interpret this result as normal/abnor mal. MPV (test code = 11.7 fL 6.0-11.5 H 41588-2) nRBC (test code = 413) 0 See_Comment [Aut omated message] The system RECESS. generated this result transmitted ref erence range: 0 - 0 /1 00 WBC. The refere nce range was not u sed to interpret this result as normal/abnor mal. Lab Interpretation (test Abnormal code = 21814-4) [facility] (Hemogram only)2020-04-03 05:47:00 Test Item Value Reference Range Interpretation Comments WBC (test code = 6690-2) 8.9 See_Comment [A utomated message] The system RECESS. generated this result transmitted ref erence range: 4.0 - 10 .0 K/L. The refe rence range was not u sed to interpret this result as normal/abnor mal. RBC (test code = 789-8) 3.59 See_Comment L [Au tomated message] The system RECESS. generated this result transmitted ref erence range: 4.20 - 5 .80 M/L. The refe rence range was not u sed to interpret this result as normal/abnor mal. MCHC (test code = 786-4) 32.4 See_Comment L [A utomated message] The system RECESS. generated this result transmitted ref erence range: [...] See_Comment [Aut omated message] 777-3) The system RECESS. generated this result transmitted ref erence range: 150 - 43 0 K/CU MM. The referen ce range was not u sed to interpret this result as normal/abnor mal. MPV (test code = 11.7 fL 6-11.5 H 85441-5) nRBC (test code = 413) 0 See_Comment [Aut omated message] The system RECESS. generated this result transmitted ref erence range: 0 - 0 /1 00 WBC. The refere nce range was not u sed to interpret this result as normal/abnor mal. Lab Interpretation (test Abnormal code = 90466-0) [facility] (Hemogram only)2020-04-03 05:47:00 Test Item Value Reference Range Interpretation Comments WBC (test code = 6690-2) 8.9 See_Comment [A utomated message] The system RECESS. generated this result transmitted ref erence range: 4.0 - 10 .0 K/L. The refe rence range was not u sed to interpret this result as normal/abnor mal. RBC (test code = 789-8) 3.59 See_Comment L [Au tomated message] The system RECESS. generated this result transmitted ref erence range: 4.20 - 5 .80 M/L. The refe rence range was not u sed to interpret this result as normal/abnor mal. MCHC (test code = 786-4) 32.4 See_Comment L [A utomated message] The system RECESS. generated this result transmitted ref erence range: [...] code = 215 See_Comment [Aut omated message] 037-3) The system RECESS. generated this result transmitted ref erence range: 150 - 43 0 K/CU MM. The referen ce range was not u sed to interpret this result as normal/abnor mal. MPV (test code = 11.7 fL 6-11.5 H 53813-5) nRBC (test code = 413) 0 See_Comment [Aut omated message] The system RECESS. generated this result transmitted ref erence range: 0 - 0 /1 00 WBC. The refere nce range was not u sed to interpret this result as normal/abnor mal. Lab Interpretation (test Abnormal code = 75248-3) [facility] (HEMOGRAM ONLY)2020-04-03 05:47:00 Test Item [...] (BEAKER) (test code = 413) VANCOMYCIN LEVEL, [id number] 22:37:00 Test Item Value Reference Range Interpretation Comments VANCOMYCIN TROUGH (BEAKER) (test 18.7 ug/mL 10.0-20.0 code = 522) Housekeeping/Laundry Supervisor ID - JUSTINPOCT-GLUCOSE [id number] 21:28:00 Test Item Value Reference Range Interpretation Comments POC-GLUCOSE METER 234 mg/dL 70-110 H : TESTED A T [address] (BEAKER) (test code [address], = 1538) [place] [address]: Housekeeping/Laundry Supervisor/Techni cornelia ID = [id number] for Heidy Barrow POCT-GLUCOSE [id number] 16:03:00 Test Item Value Reference Range Interpretation Comments POC-GLUCOSE METER 262 mg/dL 70-110 H : TESTED A T [address] (BEAKER) (test code [address], = 1538) [place] [address]: Housekeeping/Laundry Supervisor/Techni cornelia ID = [id number] for Buff ord, Jesi POCT-GLUCOSE [id number] 11:56:00 Test Item Value Reference Range Interpretation Comments POC-GLUCOSE METER 190 mg/dL 70-110 H : TESTED A T [address] (BEAKER) (test code [address], = 1538) [place] [address]: Housekeeping/Laundry Supervisor/Techni cornelia ID = [id number] for Buff ord, Jesi BASIC METABOLIC [id number] 06:58:00 Test Item Value Reference Range Interpretation [...] S NOT APPLICABLE FOR DIALYSIS PATIEN TS. Housekeeping/Laundry Supervisor ID - [id number] ID - [id number] ID - [id number] ID - [id number] ID - [id number] ID - [id number] ID - [id number] ID - ouqo59Vbeloplk ID - [id number] ID - emeh04Qfoasvfd ID - wbqe50Aihjittv ID - wkvh55Tnkhpqzq ID - [id number] (HEMOGRAM ONLY)2020-04-02 06:43:00 Test Item Value Reference [...] 0-0 (BEAKER) (test code = 413) POCT-GLUCOSE [id number] 16:21:00 Test Item Value Reference Range Interpretation Comments POC-GLUCOSE METER 262 mg/dL 70-110 H : TESTED A T [address] (BEAKER) (test code [address], = 1538) [facility] 77 478: Housekeeping/Laundry Supervisor/Techni cornelia ID = [id number] for Jesi Espinal POCT-GLUCOSE [id number] 13:00:00 Test Item Value Reference Range Interpretation Comments POC-GLUCOSE METER 256 mg/dL 70-110 H : TESTED A T [address] (BEAKER) (test code [address], = 1538) [place] [address]: Housekeeping/Laundry Supervisor/Techni cornelia ID = [id number] for Olga He POCT-GLUCOSE [id number] 11:49:00 Test Item Value Reference Range Interpretation Comments POC-GLUCOSE METER 255 mg/dL 70-110 H : TESTED A T [address] (BEAKER) (test code [address], = 1538) [place] [address]: Housekeeping/Laundry Supervisor/Techni cornelia ID = [id number] for Karina Curtis POCT-GLUCOSE [id number] 07:53:00 Test Item Value Reference Range Interpretation Comments POC-GLUCOSE METER 296 mg/dL 70-110 H : TESTED A T [address] (BEAKER) (test code [address], = 1538) [place] [address]: Housekeeping/Laundry Supervisor/Techni cornelia ID = [id number] for Brandon alejandra Jesi BASIC METABOLIC [id number] 06:06:00 Test Item Value Reference Range Interpretation [...] S NOT APPLICABLE FOR DIALYSIS PATIEN TS. Housekeeping/Laundry Supervisor ID - ANSBERTOGOperator ID - ANSBERTOGOperator ID - ANSBERTOGOperator ID - ANSBERTOGOperatorID - ANSBERTOGOperator ID - ANSBERTOGOperator ID - ANSBERTOGOperator ID - ANSBERTOGOperator ID - ANSBERTOGOperator ID - ANSBERTOGOperator ID - ANSBERTOGOperator ID - ANSBERTOGOperator ID - ANSBERTOG POCT-GLUCOSE [id number] 20:54:00 Test Item Value Reference Range Interpretation Comments POC-GLUCOSE METER 252 mg/dL 70-110 H : TESTED A T [address] (BEAKER) (test code [address], = 1538) [place] [address]: Housekeeping/Laundry Supervisor/Techni cornelia ID = [id number] for gordon Whitehead POCT-GLUCOSE [id number] 15:59:00 Test Item Value Reference Range Interpretation Comments POC-GLUCOSE METER 335 mg/dL 70-110 H : TESTED A T [address] (BEAKER) (test code [address], = 1538) [place] [address]: Housekeeping/Laundry Supervisor/Techni cornelia ID = [id number] for Tiff Roach POCT-GLUCOSE [id number] 15:24:00 Test Item Value Reference Range Interpretation Comments POC-GLUCOSE METER 356 mg/dL 70-110 H : TESTED A T [address] (BEAKER) (test code [address], = 1538) [place] [address]: Housekeeping/Laundry Supervisor/Techni cornelia ID = [id number] for Tiff Roach POCT-GLUCOSE [id number] 07:46:00 Test Item Value Reference Range Interpretation Comments POC-GLUCOSE METER 281 mg/dL 70-110 H : TESTED A T [address] (BEAKER) (test code [address], = 1538) [place] [address]: Housekeeping/Laundry Supervisor/Techni cornelia ID = [id number] for Tiff Roach Hemoglobin [id number] 06:09:00 Test Item Value Reference Range Interpretation Comments Hemoglobin A1C (test code 12.3 % 4.3-6.1 H = 4548-4) ISSA (test code = ISSA) Housekeeping/Laundry Supervisor ID - JBERN Lab Interpretation (test Abnormal code = 96494-4) [facility] [id number] 06:09:00 Test Item Value Reference Range Interpretation Comments Hemoglobin A1C (test code 12.3 % 4.3-6.1 H = 4548-4) ISSA (test code = ISSA) Housekeeping/Laundry Supervisor ID - JBERN Lab Interpretation (test Abnormal code = 31818-1) [id number] 06:09:00 Test Item Value Reference Range Interpretation Comments Hemoglobin A1C (test code 12.3 % 4.3-6.1 H = 4548-4) ISSA (test code = ISSA) Housekeeping/Laundry Supervisor ID - JBERN Lab Interpretation (test Abnormal code = 25553-3) [facility] [id number] 06:09:00 Test Item Value Reference Range Interpretation Comments Hemoglobin A1C (test code 12.3 % 4.3-6.1 H = 4548-4) ISSA (test code = ISSA) Housekeeping/Laundry Supervisor ID - JBERN Lab Interpretation (test Abnormal code = 70975-7) [facility] [id number] 06:09:00 Test Item Value Reference Range Interpretation Comments Hemoglobin A1C (test code 12.3 % 4.3-6.1 H = 4548-4) ISSA (test code = ISSA) Housekeeping/Laundry Supervisor ID - JBERN Lab Interpretation (test Abnormal code = 10620-3) [facility] [id number] 06:09:00 Test Item Value Reference Range Interpretation Comments Hemoglobin A1C (test code 12.3 % 4.3-6.1 H = 4548-4) ISSA (test code = ISSA) Housekeeping/Laundry Supervisor ID - JBERN Lab Interpretation (test Abnormal code = 29183-3) [facility] [id number] 06:09:00 Test Item Value Reference Range Interpretation Comments Hemoglobin A1C (test code 12.3 % 4.3-6.1 H = 4548-4) ISSA (test code = ISSA) Housekeeping/Laundry Supervisor ID - JBERN Lab Interpretation (test Abnormal code = 90660-9) [facility] [id number] 06:09:00 Test Item Value Reference Range Interpretation Comments HEMOGLOBIN A1C (BEAKER) (test code = 12.3 % 4.3-6.1 H 368) Housekeeping/Laundry Supervisor ID - JBERNBASIC METABOLIC [id number] 06:04:00 Test Item Value Reference Range Interpretation [...] S NOT APPLICABLE FOR DIALYSIS PATIEN TS. Housekeeping/Laundry Supervisor ID - ANSBERTOGOperator ID - ANSBERTOGOperator ID - ANSBERTOGOperator ID - ANSBERTOGOperatorID - ANSBERTOGOperator ID - ANSBERTOGOperator ID - ANSBERTOGOperator ID - ANSBERTOGOperator ID - ANSBERTOGOperator ID - ANSBERTOGOperator ID - ANSBERTOGOperator ID - ANSBERTOGOperator ID - ANSBERTOG CBC W/PLT COUNT & AUTO [id number] 05:38:00 Test Item Value Reference Range Interpretation [...] = 2801) CBC W/PLT COUNT & AUTO [id number] 22:16:00 Test Item Value Reference Range Interpretation [...] PERCENT (BEAKER) (test code = 2801) POCT-GLUCOSE [id number] 22:12:00 Test Item Value Reference Range Interpretation Comments POC-GLUCOSE METER 396 mg/dL 70-110 H : TESTED A T [facility] [address] (BEAKER) (test code [facility] [address], = 1538) [facility] [address]: Housekeeping/Laundry Supervisor/Techni cornelia ID = [id number] for Aanu gordon sutton RAD, FOOT, MIN 3 VIEWS, [id number] 21:39:00Reason for exam:->L foot ulcer[facility] : 1975 Sex: [...] MDReport Verified Date/Time: 03/30/2020 21:39:00 BASI METABOLIC [id number] 21:34:00 Test Item Value Reference Range Interpretation [...] S NOT APPLICABLE FOR DIALYSIS PATIEN TS. Housekeeping/Laundry Supervisor ID - JBERNOperator ID - JBERNOperator ID - JBERNOperator ID - JBERNOperator ID - JBERNOperator ID - JBERNOperator ID - JBERNOperator ID - JBERNOperator ID - JBERNOperator ID - JBERNOperator ID- JBERNOperator ID - JBERNOperator ID - JBERNSARS-COV2/RT-PCR ([facility])2020-03-30 21:04:00 Test Item Value Reference Range Interpretation Comments SARS-COV2/RT-PCR Negative Not Detected, (test code = 7586750) Negative, See external report for linked test SARS-COV-2 PERFORMING Perfor med @ [facility] (test code = 8261715) BLOOD [id number] 04:00:00 Test Item Value Reference Range Interpretation Comments CULTURE (BEAKER) (test No growth in 5 days code = 1095) BLOOD [id number] 04:00:00 Test Item Value Reference Range Interpretation Comments CULTURE (BEAKER) (test No growth in 5 days code = 1095) BASIC METABOLIC [id number] 01:36:00 Test Item Value Reference Range Interpretation [...] S NOT APPLICABLE FOR DIALYSIS PATIEN TS. Housekeeping/Laundry Supervisor ID - [id number] ID - [id number] ID - lbnz80Zmjhuxpy ID - gsml07Fncuzglz ID - murp56Zcyboipe ID - [id number] ID - [id number] ID - gzgc11Wtznqedc ID - tnju35Xgwrunuc ID - ltqg66Pgimtlil ID - tsdg72Eczrvuwf ID - muzv63Nkvkrofo ID - xwdu20O-Tpjmezhd [id number] 01:34:00 Test Item Value Reference Range Interpretation Comments CRP (test code = 676) 0.66 mg/dL 0-0.5 H ISSA (test code = ISSA) Housekeeping/Laundry Supervisor ID - [id number] Lab Interpretation (test Abnormal code = 47919-5) [facility] [id number] 01:34:00 Test Item Value Reference Range Interpretation Comments CRP (test code = 676) 0.66 mg/dL 0-0.5 H ISSA (test code = ISSA) Housekeeping/Laundry Supervisor ID - [id number] Lab Interpretation (test Abnormal code = 90684-2) [facility] [id number] 01:34:00 Test Item Value Reference Range Interpretation Comments CRP (test code = 676) 0.66 mg/dL 0-0.5 H ISSA (test code = ISSA) Housekeeping/Laundry Supervisor ID - [id number] Lab Interpretation (test Abnormal code = 02169-2) [facility] [id number] 01:34:00 Test Item Value Reference Range Interpretation Comments CRP (test code = 676) 0.66 mg/dL 0-0.5 H ISSA (test code = ISSA) Housekeeping/Laundry Supervisor ID - [id number] Lab Interpretation (test Abnormal code = 76209-8) [facility] [id number] 01:34:00 Test Item Value Reference Range Interpretation Comments CRP (test code = 676) 0.66 mg/dL 0.00-0.50 H ISSA (test code = ISSA) Housekeeping/Laundry Supervisor ID - [id number] Lab Interpretation (test Abnormal code = 96335-6) [facility] [id number] 01:34:00 Test Item Value Reference Range Interpretation Comments CRP (test code = 676) 0.66 mg/dL 0.00-0.50 H ISSA (test code = ISSA) Housekeeping/Laundry Supervisor ID - [id number] Lab Interpretation (test Abnormal code = 67349-5) [facility] [id number] 01:34:00 Test Item Value Reference Range Interpretation Comments CRP (test code = 676) 0.66 mg/dL 0.00-0.50 H ISSA (test code = ISSA) Housekeeping/Laundry Supervisor ID - [id number] Lab Interpretation (test Abnormal code = 93607-3) [facility] [id number] 01:34:00 Test Item Value Reference Range Interpretation Comments C-REACTIVE PROTEIN (BEAKER) (test 0.66 mg/dL 0.00-0.50 H code = 676) Housekeeping/Laundry Supervisor ID - [id number] ACID, [id number] 01:33:00 Test Item Value Reference Range Interpretation Comments LACTATE BLOOD VENOUS (2) (BEAKER) 1.75 mmol/L 0.50-<2.00 (test code = 2872) Housekeeping/Laundry Supervisor ID - [id number] ID - [id number] ID - rufm59Zxwdarxk ID - [id number] CBC W/PLT COUNT & AUTO [id number] 01:21:00 Test Item Value Reference Range Interpretation [...] = 2801) RAD, FOOT, MIN 3 VIEWS, [id number] 00:51:00Reason for exam:->[facility] 1975 Sex: MFINAL REPORT TECHNIQUE: Frontal, oblique, and lateral views of theleft foot. INDICATION: ABSCESS. COMPARISON: None. IMPRESSION:There is soft tissue swelling with superficial skin defect compatible with ulceration along the plantar tissues of the distal midfoot. No osseous erosion. No acute fracture or dislocation. Joint spaces are preserved. Peripheral vascular calcifications are evident. Signed: Jazmin Freemanradha Verified Date/Time: 03/20/2020 00:51:45 Panel Description: Hemoglobin A1c/Hemoglobin.total in [id number] 11:40:00 Test Item Value Reference Range Interpretation Comments Hemoglobin A1c (test code 13.1 % 4.8-5.6 H = 4548-4) . Prediabetes: 5. 7 - 6.4 Diabete s: >6.4 Glycemi c control for niall lts with diabetes: <7.0

P erforme d by:
[facility] ([place])

[facility] Description: Hemoglobin A1c/Hemoglobin.total [...]

P erforme d by:
[facility] ([place])

[facility] Description: Hemoglobin A1c/Hemoglobin.total [...]

P erforme d by:
[facility] ([place])

[facility] Description: Hemoglobin A1c/Hemoglobin.total [...]

P erforme d by:
[facility] ([place])

[facility] Description: Hemoglobin A1c/Hemoglobin.total [...]

P erforme d by:
[facility] ([place])

[facility] Description: Hemoglobin A1c/Hemoglobin.total [...]

P erforme d by:
[facility] ([place])

[facility] Description: Hemoglobin A1c/Hemoglobin.total [...] diabetes: <7.0

P erforme d by:
[facility] [place] ()

[facility] Description: Hemoglobin A1c/Hemoglobin.total in Blood 2020-03-07 11:40:00 Test Item Value Reference Range Interpretation Comments Hemoglobin A1c (test code 13.1 % 4.8-5.6 H = 4548-4) . Prediabetes: 5. 7 - 6.4 Diabete s: >6.4 Glycemi c control for niall lts with diabetes: <7.0

P erforme d by:
[facility] ([place])

[facility] Description: Hemoglobin A1c/Hemoglobin.total in Blood 2020-03-07 11:40:00 Test Item Value Reference Range Interpretation Comments Hemoglobin A1c (test code 13.1 % 4.8-5.6 H = 4548-4) . Prediabetes: 5. 7 - 6.4 Diabete s: >6.4 Glycemi c control for niall lts with diabetes: <7.0

P erforme d by:
[facility] [place] ([place])

[facility] Description: Lipid [id number] 08:03:00 Test Item Value Reference Range Interpretation Comments Cholesterol, Total (test code = 209 mg/dL 100-199 H 2093-3) Triglycerides (test code = 2571-8) 172 mg/dL 0-149 H HDL Cholesterol (test code = 29 mg/dL >39 L 5-9) VLDL Cholesterol Renuka (test code = 32 mg/dL 5-40 42038-3) LDL Chol Calc (NIH) (test code = 148 mg/dL 0-99 H 33254-7) Comment: (test code = 01306-7) [employer] Description: Lipid [id number] 08:03:00 Test Item Value Reference Range Interpretation Comments Cholesterol, Total (test code = 209 mg/dL 100-199 H 3-3) Triglycerides (test code = 2571-8) 172 mg/dL 0-149 H HDL Cholesterol (test code = 29 mg/dL >39 L 5-9) VLDL Cholesterol Renuka (test code = 32 mg/dL 5-40 00318-6) LDL Chol Calc (NIH) (test code = 148 mg/dL 0-99 H 70988-9) Comment: (test code = 81443-0) [employer] Description: Lipid [id number] 08:03:00 Test Item Value Reference Range Interpretation Comments Cholesterol, Total (test code = 209 mg/dL 100-199 H 3-3) Triglycerides (test code = 2571-8) 172 mg/dL 0-149 H HDL Cholesterol (test code = 29 mg/dL >39 L 5-9) VLDL Cholesterol Renuka (test code = 32 mg/dL 5-40 53901-5) LDL Chol Calc (NIH) (test code = 148 mg/dL 0-99 H 75755-2) Comment: (test code = 22750-2) [employer] Description: Lipid [id number] 08:03:00 Test Item Value Reference Range Interpretation Comments Cholesterol, Total (test code = 209 mg/dL 100-199 H 3-3) Triglycerides (test code = 2571-8) 172 mg/dL 0-149 H HDL Cholesterol (test code = 29 mg/dL >39 L 5-9) VLDL Cholesterol Renuka (test code = 32 mg/dL 5-40 53861-1) LDL Chol Calc (NIH) (test code = 148 mg/dL 0-99 H 75133-0) Comment: (test code = 64507-1) [employer] Description: Lipid [id number] 08:03:00 Test Item Value Reference Range Interpretation Comments Cholesterol, Total (test code = 209 mg/dL 100-199 H 2093-3) Triglycerides (test code = 2571-8) 172 mg/dL 0-149 H HDL Cholesterol (test code = 29 mg/dL >39 L 2085-9) VLDL Cholesterol Renuka (test code = 32 mg/dL 5-40 44097-0) LDL Chol Calc (NIH) (test code = 148 mg/dL 0-99 H 16615-2) Comment: (test code = 07420-5) [employer] Description: Lipid [id number] 08:03:00 Test Item Value Reference Range Interpretation Comments Cholesterol, Total (test code = 209 mg/dL 100-199 H 2093-3) Triglycerides (test code = 2571-8) 172 mg/dL 0-149 H HDL Cholesterol (test code = 29 mg/dL >39 L 2085-9) VLDL Cholesterol Renuka (test code = 32 mg/dL 5-40 54533-3) LDL Chol Calc (NIH) (test code = 148 mg/dL 0-99 H 98821-8) Comment: (test code = 54837-5) [employer] Description: Lipid [id number] 08:03:00 Test Item Value Reference Range Interpretation Comments Cholesterol, Total (test code = 209 mg/dL 100-199 H 2093-3) Triglycerides (test code = 2571-8) 172 mg/dL 0-149 H HDL Cholesterol (test code = 29 mg/dL >39 L 2085-9) VLDL Cholesterol Renuka (test code = 32 mg/dL 5-40 09081-6) LDL Chol Calc (NIH) (test code = 148 mg/dL 0-99 H 77517-8) Comment: (test code = 84025-6) [employer] Description: Lipid [id number] 08:03:00 Test Item Value Reference Range Interpretation Comments Cholesterol, Total (test code = 209 mg/dL 100-199 H 2093-3) Triglycerides (test code = 2571-8) 172 mg/dL 0-149 H HDL Cholesterol (test code = 29 mg/dL >39 L 2085-9) VLDL Cholesterol Renuka (test code = 32 mg/dL 5-40 74678-4) LDL Chol Calc (NIH) (test code = 148 mg/dL 0-99 H 15037-9) Comment: (test code = 68800-2) [employer] Description: Lipid [id number] 08:03:00 Test Item Value Reference Range Interpretation Comments Cholesterol, Total (test code = 209 mg/dL 100-199 H 2093-3) Triglycerides (test code = 2571-8) 172 mg/dL 0-149 H HDL Cholesterol (test code = 29 mg/dL >39 L 2085-9) VLDL Cholesterol Renuka (test code = 32 mg/dL 5-40 66086-6) LDL Chol Calc (NIH) (test code = 148 mg/dL 0-99 H 23219-6) Comment: (test code = 48366-0) [employer] Description: Lipid [id number] 08:03:00 Test Item Value Reference Range Interpretation Comments Cholesterol, Total (test code = 209 mg/dL 100-199 H 2093-3) Triglycerides (test code = 2571-8) 172 mg/dL 0-149 H HDL Cholesterol (test code = 29 mg/dL >39 L 2085-9) VLDL Cholesterol Renuka (test code = 32 mg/dL 5-40 82680-3) LDL Chol Calc (NIH) (test code = 148 mg/dL 0-99 H 05478-3) Comment: (test code = 29904-6) [employer] Description: Lipid [id number] 08:03:00 Test Item Value Reference Range Interpretation Comments Cholesterol, Total (test code = 209 mg/dL 100-199 H 2093-3) Triglycerides (test code = 2571-8) 172 mg/dL 0-149 H HDL Cholesterol (test code = 29 mg/dL >39 L 2085-9) VLDL Cholesterol Renuka (test code = 32 mg/dL 5-40 00204-2) LDL Chol Calc (NIH) (test code = 148 mg/dL 0-99 H 36225-4) Comment: (test code = 26067-9) [employer] Description: Lipid [id number] 08:03:00 Test Item Value Reference Range Interpretation Comments Cholesterol, Total (test code = 209 mg/dL 100-199 H 2093-3) Triglycerides (test code = 2571-8) 172 mg/dL 0-149 H HDL Cholesterol (test code = 29 mg/dL >39 L 2085-9) VLDL Cholesterol Renuka (test code = 32 mg/dL 5-40 74309-9) LDL Chol Calc (NIH) (test code = 148 mg/dL 0-99 H 29127-4) Comment: (test code = 33728-4) [employer] Description: Lipid [id number] 08:03:00 Test Item Value Reference Range Interpretation Comments Cholesterol, Total (test code = 209 mg/dL 100-199 H 2093-3) Triglycerides (test code = 2571-8) 172 mg/dL 0-149 H HDL Cholesterol (test code = 29 mg/dL >39 L 2085-9) VLDL Cholesterol Renuka (test code = 32 mg/dL 5-40 45598-7) LDL Chol Calc (NIH) (test code = 148 mg/dL 0-99 H 07781-0) Comment: (test code = 51403-5) [employer] Description: Lipid [id number] 08:03:00 Test Item Value Reference Range Interpretation Comments Cholesterol, Total (test code = 209 mg/dL 100-199 H 2093-3) Triglycerides (test code = 2571-8) 172 mg/dL 0-149 H HDL Cholesterol (test code = 29 mg/dL >39 L 5-9) VLDL Cholesterol Renuka (test code = 32 mg/dL 5-40 44217-4) LDL Chol Calc (NIH) (test code = 148 mg/dL 0-99 H 96204-9) Comment: (test code = 75539-2) [employer] Description: Lipid [id number] 08:03:00 Test Item Value Reference Range Interpretation Comments Cholesterol, Total (test code = 209 mg/dL 100-199 H 2093-3) Triglycerides (test code = 2571-8) 172 mg/dL 0-149 H HDL Cholesterol (test code = 29 mg/dL >39 L 2085-9) VLDL Cholesterol Renuka (test code = 32 mg/dL 5-40 02546-6) LDL Chol Calc (NIH) (test code = 148 mg/dL 0-99 H 91526-4) Comment: (test code = 30427-0) [employer] Description: Lipid [id number] 08:03:00 Test Item Value Reference Range Interpretation Comments Cholesterol, Total (test code = 209 mg/dL 100-199 H 2093-3) Triglycerides (test code = 2571-8) 172 mg/dL 0-149 H HDL Cholesterol (test code = 29 mg/dL >39 L 2085-9) VLDL Cholesterol Renuka (test code = 32 mg/dL 5-40 22239-8) LDL Chol Calc (NIH) (test code = 148 mg/dL 0-99 H 39821-8) Comment: (test code = 93640-6) [employer] Description: Lipid [id number] 08:03:00 Test Item Value Reference Range Interpretation Comments Cholesterol, Total (test code = 209 mg/dL 100-199 H 2093-3) Triglycerides (test code = 2571-8) 172 mg/dL 0-149 H HDL Cholesterol (test code = 29 mg/dL >39 L 2085-9) VLDL Cholesterol Renuka (test code = 32 mg/dL 5-40 44782-6) LDL Chol Calc (NIH) (test code = 148 mg/dL 0-99 H 98568-5) Comment: (test code = 84448-6) [employer] Description: Lipid [id number] 08:03:00 Test Item Value Reference Range Interpretation Comments Cholesterol, Total (test code = 209 mg/dL 100-199 H 2093-3) Triglycerides (test code = 2571-8) 172 mg/dL 0-149 H HDL Cholesterol (test code = 29 mg/dL >39 L 2085-9) VLDL Cholesterol Renuka (test code = 32 mg/dL 5-40 49090-7) LDL Chol Calc (NIH) (test code = 148 mg/dL 0-99 H 21270-0) Comment: (test code = 46975-1) [employer] Description: Lipid [id number] 08:03:00 Test Item Value Reference Range Interpretation Comments Cholesterol, Total (test code = 209 mg/dL 100-199 H 2093-3) Triglycerides (test code = 2571-8) 172 mg/dL 0-149 H HDL Cholesterol (test code = 29 mg/dL >39 L 2085-9) VLDL Cholesterol Renuka (test code = 32 mg/dL 5-40 68281-4) LDL Chol Calc (NIH) (test code = 148 mg/dL 0-99 H 29215-5) Comment: (test code = 00800-2) [employer] Description: Lipid [id number] 08:03:00 Test Item Value Reference Range Interpretation Comments Cholesterol, Total (test code = 209 mg/dL 100-199 H 2093-3) Triglycerides (test code = 2571-8) 172 mg/dL 0-149 H HDL Cholesterol (test code = 29 mg/dL >39 L 2085-9) VLDL Cholesterol Renuka (test code = 32 mg/dL 5-40 93705-5) LDL Chol Calc (NIH) (test code = 148 mg/dL 0-99 H 60468-5) Comment: (test code = 27160-5) [employer] Description: Lipid [id number] 08:03:00 Test Item Value Reference Range Interpretation Comments Cholesterol, Total (test code = 209 mg/dL 100-199 H 2093-3) Triglycerides (test code = 2571-8) 172 mg/dL 0-149 H HDL Cholesterol (test code = 29 mg/dL >39 L 2085-9) VLDL Cholesterol Renuka (test code = 32 mg/dL 5-40 50678-0) LDL Chol Calc (NIH) (test code = 148 mg/dL 0-99 H 59903-3) Comment: (test code = 69086-6) [employer] Description: Lipid [id number] 08:03:00 Test Item Value Reference Range Interpretation Comments Cholesterol, Total (test code = 209 mg/dL 100-199 H 2093-3) Triglycerides (test code = 2571-8) 172 mg/dL 0-149 H HDL Cholesterol (test code = 29 mg/dL >39 L 2085-9) VLDL Cholesterol Renuka (test code = 32 mg/dL 5-40 62783-9) LDL Chol Calc (NIH) (test code = 148 mg/dL 0-99 H 27060-5) Comment: (test code = 51046-2) [employer] Description: Lipid [id number] 08:03:00 Test Item Value Reference Range Interpretation Comments Cholesterol, Total (test code = 209 mg/dL 100-199 H 2093-3) Triglycerides (test code = 2571-8) 172 mg/dL 0-149 H HDL Cholesterol (test code = 29 mg/dL >39 L 2085-9) VLDL Cholesterol Renuka (test code = 32 mg/dL 5-40 56244-1) LDL Chol Calc (NIH) (test code = 148 mg/dL 0-99 H 79982-6) Comment: (test code = 29196-6) [employer] Description: Lipid [id number] 08:03:00 Test Item Value Reference Range Interpretation Comments Cholesterol, Total (test code = 209 mg/dL 100-199 H 2093-3) Triglycerides (test code = 2571-8) 172 mg/dL 0-149 H HDL Cholesterol (test code = 29 mg/dL >39 L 2085-9) VLDL Cholesterol Renuka (test code = 32 mg/dL 5-40 49432-8) LDL Chol Calc (NIH) (test code = 148 mg/dL 0-99 H 10212-2) Comment: (test code = 78730-4) [employer] Description: Lipid [id number] 08:03:00 Test Item Value Reference Range Interpretation Comments Cholesterol, Total (test code = 209 mg/dL 100-199 H 2093-3) Triglycerides (test code = 2571-8) 172 mg/dL 0-149 H HDL Cholesterol (test code = 29 mg/dL >39 L 5-9) VLDL Cholesterol Renuka (test code = 32 mg/dL 5-40 69874-5) LDL Chol Calc (NIH) (test code = 148 mg/dL 0-99 H 97655-6) Comment: (test code = 65533-2) [employer] Description: Lipid [id number] 08:03:00 Test Item Value Reference Range Interpretation Comments Cholesterol, Total (test code = 209 mg/dL 100-199 H 2093-3) Triglycerides (test code = 2571-8) 172 mg/dL 0-149 H HDL Cholesterol (test code = 29 mg/dL >39 L 5-9) VLDL Cholesterol Renuka (test code = 32 mg/dL 5-40 87993-3) LDL Chol Calc (NIH) (test code = 148 mg/dL 0-99 H 93374-7) Comment: (test code = 77358-6) [employer] Description: Comp. Metabolic Panel (14)2020-03-07 06:49:00 Test Item Value Reference Range Interpretation Comments Glucose (test code = 2345-7) 441 mg/dL 65-99 H BUN (test code = 3094-0) 52 mg/dL 6-24 H Creatinine (test code = 2.05 mg/dL 0.76-1.27 H 2160-0) eGFR If NonAfricn Am (test 38 mL/min/1.73 >59 L code = 02448-6) eGFR If Africn Am (test code = 44 mL/min/1.73 >59 L 66974-4) BUN/Creatinine Ratio (test 25 9-20 H code = 3097-3) Sodium (test code = 2951-2) 138 mmol/L 134-144 Potassium (test code = 2823-3) 5.4 mmol/L 3.5-5.2 H Chloride (test code = 2075-0) 96 mmol/L 96-106 Carbon Dioxide, Total (test 29 mmol/L 20-29 code = 8-9) Calcium (test code = 33620-0) 9.2 mg/dL 8.7-10.2 Protein, Total (test code = 6.2 g/dL 6.0-8.5 2885-2) Albumin (test code = 1751-7) 3.4 g/dL 4.0-5.0 L Globulin, Total (test code = 2.8 g/dL 1.5-4.5 84330-1) A/G Ratio (test code = 1759-0) 1.2 1.2-2.2 Bilirubin, Total (test code = 0.5 mg/dL 0.0-1.2 1975-2) Alkaline Phosphatase (test 112 IU/L 39-117 code = 6768-6) AST (SGOT) (test code = 21 IU/L 0-40 1920-8) ALT (SGPT) (test code = 31 IU/L 0-44 1742-6) [facility] Description: Comp. Metabolic Panel (142020-03-07 06:49:00 Test Item Value Reference Range Interpretation Comments Glucose (test code = 2345-7) 441 mg/dL 65-99 H BUN (test code = 3094-0) 52 mg/dL 6-24 H Creatinine (test code = 2.05 mg/dL 0.76-1.27 H 2160-0) eGFR If NonAfricn Am (test 38 mL/min/1.73 >59 L code = 90741-7) eGFR If Africn Am (test code = 44 mL/min/1.73 >59 L 59732-8) BUN/Creatinine Ratio (test 25 9-20 H code = 3097-3) Sodium (test code = 2951-2) 138 mmol/L 134-144 Potassium (test code = 2823-3) 5.4 mmol/L 3.5-5.2 H Chloride (test code = 2075-0) 96 mmol/L 96-106 Carbon Dioxide, Total (test 29 mmol/L 20-29 code = 2028-9) Calcium (test code = 36282-9) 9.2 mg/dL 8.7-10.2 Protein, Total (test code = 6.2 g/dL 6.0-8.5 2885-2) Albumin (test code = 1751-7) 3.4 g/dL 4.0-5.0 L Globulin, Total (test code = 2.8 g/dL 1.5-4.5 78420-6) A/G Ratio (test code = 1759-0) 1.2 1.2-2.2 Bilirubin, Total (test code = 0.5 mg/dL 0.0-1.2 1975-2) Alkaline Phosphatase (test 112 IU/L 39-117 code = 6768-6) AST (SGOT) (test code = 21 IU/L 0-40 1920-8) ALT (SGPT) (test code = 31 IU/L 0-44 1742-6) [facility] Description: Comp. Metabolic Panel (14)2020-03-07 06:49:00 Test Item Value Reference Range Interpretation Comments Glucose (test code = 2345-7) 441 mg/dL 65-99 H BUN (test code = 3094-0) 52 mg/dL 6-24 H Creatinine (test code = 2.05 mg/dL 0.76-1.27 H 2160-0) eGFR If NonAfricn Am (test 38 mL/min/1.73 >59 L code = 34892-1) eGFR If Africn Am (test code = 44 mL/min/1.73 >59 L 93971-6) BUN/Creatinine Ratio (test 25 9-20 H code = 3097-3) Sodium (test code = 2951-2) 138 mmol/L 134-144 Potassium (test code = 2823-3) 5.4 mmol/L 3.5-5.2 H Chloride (test code = 2075-0) 96 mmol/L 96-106 Carbon Dioxide, Total (test 29 mmol/L 20-29 code = 8-9) Calcium (test code = 28525-3) 9.2 mg/dL 8.7-10.2 Protein, Total (test code = 6.2 g/dL 6.0-8.5 2885-2) Albumin (test code = 1751-7) 3.4 g/dL 4.0-5.0 L Globulin, Total (test code = 2.8 g/dL 1.5-4.5 98890-6) A/G Ratio (test code = 1759-0) 1.2 1.2-2.2 Bilirubin, Total (test code = 0.5 mg/dL 0.0-1.2 1975-2) Alkaline Phosphatase (test 112 IU/L 39-117 code = 6768-6) AST (SGOT) (test code = 21 IU/L 0-40 1920-8) ALT (SGPT) (test code = 31 IU/L 0-44 1742-6) [facility] Description: Comp. Metabolic Panel (14)2020-03-07 06:49:00 Test Item Value Reference Range Interpretation Comments Glucose (test code = 2345-7) 441 mg/dL 65-99 H BUN (test code = 3094-0) 52 mg/dL 6-24 H Creatinine (test code = 2.05 mg/dL 0.76-1.27 H 2160-0) eGFR If NonAfricn Am (test 38 mL/min/1.73 >59 L code = 63929-2) eGFR If Africn Am (test code = 44 mL/min/1.73 >59 L 46164-7) BUN/Creatinine Ratio (test 25 9-20 H code = 3097-3) Sodium (test code = 2951-2) 138 mmol/L 134-144 Potassium (test code = 2823-3) 5.4 mmol/L 3.5-5.2 H Chloride (test code = 2075-0) 96 mmol/L 96-106 Carbon Dioxide, Total (test 29 mmol/L 20-29 code = 2027-9) Calcium (test code = 25798-6) 9.2 mg/dL 8.7-10.2 Protein, Total (test code = 6.2 g/dL 6.0-8.5 2885-2) Albumin (test code = 1751-7) 3.4 g/dL 4.0-5.0 L Globulin, Total (test code = 2.8 g/dL 1.5-4.5 77270-2) A/G Ratio (test code = 1759-0) 1.2 1.2-2.2 Bilirubin, Total (test code = 0.5 mg/dL 0.0-1.2 1975-2) Alkaline Phosphatase (test 112 IU/L 39-117 code = 6768-6) AST (SGOT) (test code = 21 IU/L 0-40 1920-8) ALT (SGPT) (test code = 31 IU/L 0-44 1742-6) [facility] Description: Comp. Metabolic Panel (14)2020-03-07 06:49:00 Test Item Value Reference Range Interpretation Comments Glucose (test code = 2345-7) 441 mg/dL 65-99 H BUN (test code = 3094-0) 52 mg/dL 6-24 H Creatinine (test code = 2.05 mg/dL 0.76-1.27 H 2160-0) eGFR If NonAfricn Am (test 38 mL/min/1.73 >59 L code = 84150-9) eGFR If Africn Am (test code = 44 mL/min/1.73 >59 L 49014-3) BUN/Creatinine Ratio (test 25 9-20 H code = 3097-3) Sodium (test code = 2951-2) 138 mmol/L 134-144 Potassium (test code = 2823-3) 5.4 mmol/L 3.5-5.2 H Chloride (test code = 2075-0) 96 mmol/L 96-106 Carbon Dioxide, Total (test 29 mmol/L 20-29 code = 2027-9) Calcium (test code = 12198-4) 9.2 mg/dL 8.7-10.2 Protein, Total (test code = 6.2 g/dL 6.0-8.5 2885-2) Albumin (test code = 1751-7) 3.4 g/dL 4.0-5.0 L Globulin, Total (test code = 2.8 g/dL 1.5-4.5 91390-9) A/G Ratio (test code = 1759-0) 1.2 1.2-2.2 Bilirubin, Total (test code = 0.5 mg/dL 0.0-1.2 1975-2) Alkaline Phosphatase (test 112 IU/L 39-117 code = 6768-6) AST (SGOT) (test code = 21 IU/L 0-40 1920-8) ALT (SGPT) (test code = 31 IU/L 0-44 1742-6) [facility] Description: Comp. Metabolic Panel (14)2020-03-07 06:49:00 Test Item Value Reference Range Interpretation Comments Glucose (test code = 2345-7) 441 mg/dL 65-99 H BUN (test code = 3094-0) 52 mg/dL 6-24 H Creatinine (test code = 2.05 mg/dL 0.76-1.27 H 2160-0) eGFR If NonAfricn Am (test 38 mL/min/1.73 >59 L code = 83355-1) eGFR If Africn Am (test code = 44 mL/min/1.73 >59 L 65793-9) BUN/Creatinine Ratio (test 25 9-20 H code = 3097-3) Sodium (test code = 2951-2) 138 mmol/L 134-144 Potassium (test code = 2823-3) 5.4 mmol/L 3.5-5.2 H Chloride (test code = 2075-0) 96 mmol/L 96-106 Carbon Dioxide, Total (test 29 mmol/L 20-29 code = 8-9) Calcium (test code = 33284-6) 9.2 mg/dL 8.7-10.2 Protein, Total (test code = 6.2 g/dL 6.0-8.5 2885-2) Albumin (test code = 1751-7) 3.4 g/dL 4.0-5.0 L Globulin, Total (test code = 2.8 g/dL 1.5-4.5 13420-0) A/G Ratio (test code = 1759-0) 1.2 1.2-2.2 Bilirubin, Total (test code = 0.5 mg/dL 0.0-1.2 1974-2) Alkaline Phosphatase (test 112 IU/L 39-117 code = 6768-6) AST (SGOT) (test code = 21 IU/L 0-40 1920-8) ALT (SGPT) (test code = 31 IU/L 0-44 1742-6) [facility] Description: Comp. Metabolic Panel (2020-03-07 06:49:00 Test Item Value Reference Range Interpretation Comments Glucose (test code = 2345-7) 441 mg/dL 65-99 H BUN (test code = 3094-0) 52 mg/dL 6-24 H Creatinine (test code = 2.05 mg/dL 0.76-1.27 H 2160-0) eGFR If NonAfricn Am (test 38 mL/min/1.73 >59 L code = 13252-9) eGFR If Africn Am (test code = 44 mL/min/1.73 >59 L 42674-4) BUN/Creatinine Ratio (test 25 9-20 H code = 3097-3) Sodium (test code = 2951-2) 138 mmol/L 134-144 Potassium (test code = 2823-3) 5.4 mmol/L 3.5-5.2 H Chloride (test code = 2075-0) 96 mmol/L 96-106 Carbon Dioxide, Total (test 29 mmol/L 20-29 code = 2027-9) Calcium (test code = 35859-0) 9.2 mg/dL 8.7-10.2 Protein, Total (test code = 6.2 g/dL 6.0-8.5 2885-2) Albumin (test code = 1751-7) 3.4 g/dL 4.0-5.0 L Globulin, Total (test code = 2.8 g/dL 1.5-4.5 37205-9) A/G Ratio (test code = 1759-0) 1.2 1.2-2.2 Bilirubin, Total (test code = 0.5 mg/dL 0.0-1.2 1974-) Alkaline Phosphatase (test 112 IU/L 39-117 code = 6768-6) AST (SGOT) (test code = 21 IU/L 0-40 1920-8) ALT (SGPT) (test code = 31 IU/L 0-44 1742-6) [facility] Description: Comp. Metabolic Panel (2020-03-07 06:49:00 Test Item Value Reference Range Interpretation Comments Glucose (test code = 2345-7) 441 mg/dL 65-99 H BUN (test code = 3094-0) 52 mg/dL 6-24 H Creatinine (test code = 2.05 mg/dL 0.76-1.27 H 2160-0) eGFR If NonAfricn Am (test 38 mL/min/1.73 >59 L code = 16300-9) eGFR If Africn Am (test code = 44 mL/min/1.73 >59 L 80178-9) BUN/Creatinine Ratio (test 25 9-20 H code = 3097-3) Sodium (test code = 2951-2) 138 mmol/L 134-144 Potassium (test code = 2823-3) 5.4 mmol/L 3.5-5.2 H Chloride (test code = 2075-0) 96 mmol/L 96-106 Carbon Dioxide, Total (test 29 mmol/L 20-29 code = 2027-9) Calcium (test code = 09785-9) 9.2 mg/dL 8.7-10.2 Protein, Total (test code = 6.2 g/dL 6.0-8.5 2885-2) Albumin (test code = 1751-7) 3.4 g/dL 4.0-5.0 L Globulin, Total (test code = 2.8 g/dL 1.5-4.5 49438-9) A/G Ratio (test code = 1759-0) 1.2 1.2-2.2 Bilirubin, Total (test code = 0.5 mg/dL 0.0-1.2 1974-) Alkaline Phosphatase (test 112 IU/L 39-117 code = 6768-6) AST (SGOT) (test code = 21 IU/L 0-40 0-8) ALT (SGPT) (test code = 31 IU/L 0-44 1742-6) [facility] Description: Comp. Metabolic Panel (14)2020-03-07 06:49:00 Test Item Value Reference Range Interpretation Comments Glucose (test code = 2345-7) 441 mg/dL 65-99 H BUN (test code = 3094-0) 52 mg/dL 6-24 H Creatinine (test code = 2.05 mg/dL 0.76-1.27 H 2160-0) eGFR If NonAfricn Am (test 38 mL/min/1.73 >59 L code = 30485-1) eGFR If Africn Am (test code = 44 mL/min/1.73 >59 L 16487-6) BUN/Creatinine Ratio (test 25 9-20 H code = 3097-3) Sodium (test code = 2951-2) 138 mmol/L 134-144 Potassium (test code = 2823-3) 5.4 mmol/L 3.5-5.2 H Chloride (test code = 2075-0) 96 mmol/L 96-106 Carbon Dioxide, Total (test 29 mmol/L 20-29 code = 8-9) Calcium (test code = 80542-8) 9.2 mg/dL 8.7-10.2 Protein, Total (test code = 6.2 g/dL 6.0-8.5 2885-2) Albumin (test code = 1751-7) 3.4 g/dL 4.0-5.0 L Globulin, Total (test code = 2.8 g/dL 1.5-4.5 94289-6) A/G Ratio (test code = 1759-0) 1.2 1.2-2.2 Bilirubin, Total (test code = 0.5 mg/dL 0.0-1.2 1975-2) Alkaline Phosphatase (test 112 IU/L 39-117 code = 6768-6) AST (SGOT) (test code = 21 IU/L 0-40 1920-8) ALT (SGPT) (test code = 31 IU/L 0-44 1742-6) [facility] Description: Comp. Metabolic Panel (14)2020-03-07 06:49:00 Test Item Value Reference Range Interpretation Comments Glucose (test code = 2345-7) 441 mg/dL 65-99 H BUN (test code = 3094-0) 52 mg/dL 6-24 H Creatinine (test code = 2.05 mg/dL 0.76-1.27 H 2160-0) eGFR If NonAfricn Am (test 38 mL/min/1.73 >59 L code = 00257-0) eGFR If Africn Am (test code = 44 mL/min/1.73 >59 L 73719-7) BUN/Creatinine Ratio (test 25 9-20 H code = 3097-3) Sodium (test code = 2951-2) 138 mmol/L 134-144 Potassium (test code = 2823-3) 5.4 mmol/L 3.5-5.2 H Chloride (test code = 2075-0) 96 mmol/L 96-106 Carbon Dioxide, Total (test 29 mmol/L 20-29 code = 8-9) Calcium (test code = 10468-4) 9.2 mg/dL 8.7-10.2 Protein, Total (test code = 6.2 g/dL 6.0-8.5 2885-2) Albumin (test code = 1751-7) 3.4 g/dL 4.0-5.0 L Globulin, Total (test code = 2.8 g/dL 1.5-4.5 80882-2) A/G Ratio (test code = 1759-0) 1.2 1.2-2.2 Bilirubin, Total (test code = 0.5 mg/dL 0.0-1.2 1975-2) Alkaline Phosphatase (test 112 IU/L 39-117 code = 6768-6) AST (SGOT) (test code = 21 IU/L 0-40 1920-8) ALT (SGPT) (test code = 31 IU/L 0-44 1742-6) [facility] (14)2020-03-07 06:49:00 Test Item Value Reference Range Interpretation Comments Glucose (test code = 2345-7) 441 mg/dL 65-99 H BUN (test code = 3094-0) 52 mg/dL 6-24 H Creatinine (test code = 2.05 mg/dL 0.76-1.27 H 2160-0) eGFR If NonAfricn Am (test 38 mL/min/1.73 >59 L code = 35051-3) eGFR If Africn Am (test code = 44 mL/min/1.73 >59 L 81054-3) BUN/Creatinine Ratio (test 25 9-20 H code = 3097-3) Sodium (test code = 2951-2) 138 mmol/L 134-144 Potassium (test code = 2823-3) 5.4 mmol/L 3.5-5.2 H Chloride (test code = 2075-0) 96 mmol/L 96-106 Carbon Dioxide, Total (test 29 mmol/L 20-29 code = 2028-9) Calcium (test code = 02153-5) 9.2 mg/dL 8.7-10.2 Protein, Total (test code = 6.2 g/dL 6.0-8.5 2885-2) Albumin (test code = 1751-7) 3.4 g/dL 4.0-5.0 L Globulin, Total (test code = 2.8 g/dL 1.5-4.5 05097-7) A/G Ratio (test code = 1759-0) 1.2 1.2-2.2 Bilirubin, Total (test code = 0.5 mg/dL 0.0-1.2 1975-2) Alkaline Phosphatase (test 112 IU/L 39-117 code = 6768-6) AST (SGOT) (test code = 21 IU/L 0-40 1920-8) ALT (SGPT) (test code = 31 IU/L 0-44 1742-6) [facility] Description: Comp. Metabolic Panel (142020-03-07 06:49:00 Test Item Value Reference Range Interpretation Comments Glucose (test code = 2345-7) 441 mg/dL 65-99 H BUN (test code = 3094-0) 52 mg/dL 6-24 H Creatinine (test code = 2.05 mg/dL 0.76-1.27 H 2160-0) eGFR If NonAfricn Am (test 38 mL/min/1.73 >59 L code = 33791-4) eGFR If Africn Am (test code = 44 mL/min/1.73 >59 L 70312-7) BUN/Creatinine Ratio (test 25 9-20 H code = 3097-3) Sodium (test code = 2951-2) 138 mmol/L 134-144 Potassium (test code = 2823-3) 5.4 mmol/L 3.5-5.2 H Chloride (test code = 2075-0) 96 mmol/L 96-106 Carbon Dioxide, Total (test 29 mmol/L 20-29 code = 2028-9) Calcium (test code = 68558-4) 9.2 mg/dL 8.7-10.2 Protein, Total (test code = 6.2 g/dL 6.0-8.5 2885-2) Albumin (test code = 1751-7) 3.4 g/dL 4.0-5.0 L Globulin, Total (test code = 2.8 g/dL 1.5-4.5 75037-6) A/G Ratio (test code = 1759-0) 1.2 1.2-2.2 Bilirubin, Total (test code = 0.5 mg/dL 0.0-1.2 1975-2) Alkaline Phosphatase (test 112 IU/L 39-117 code = 6768-6) AST (SGOT) (test code = 21 IU/L 0-40 1920-8) ALT (SGPT) (test code = 31 IU/L 0-44 1742-6) [facility] Description: Comp. Metabolic Panel (142020-03-07 06:49:00 Test Item Value Reference Range Interpretation Comments Glucose (test code = 2345-7) 441 mg/dL 65-99 H BUN (test code = 3094-0) 52 mg/dL 6-24 H Creatinine (test code = 2.05 mg/dL 0.76-1.27 H 2160-0) eGFR If NonAfricn Am (test 38 mL/min/1.73 >59 L code = 31616-1) eGFR If Africn Am (test code = 44 mL/min/1.73 >59 L 00464-6) BUN/Creatinine Ratio (test 25 9-20 H code = 3097-3) Sodium (test code = 2951-2) 138 mmol/L 134-144 Potassium (test code = 2823-3) 5.4 mmol/L 3.5-5.2 H Chloride (test code = 2075-0) 96 mmol/L 96-106 Carbon Dioxide, Total (test 29 mmol/L 20-29 code = 2027-9) Calcium (test code = 22527-8) 9.2 mg/dL 8.7-10.2 Protein, Total (test code = 6.2 g/dL 6.0-8.5 2885-2) Albumin (test code = 1751-7) 3.4 g/dL 4.0-5.0 L Globulin, Total (test code = 2.8 g/dL 1.5-4.5 81942-9) A/G Ratio (test code = 1759-0) 1.2 1.2-2.2 Bilirubin, Total (test code = 0.5 mg/dL 0.0-1.2 1975-2) Alkaline Phosphatase (test 112 IU/L 39-117 code = 6768-6) AST (SGOT) (test code = 21 IU/L 0-40 1920-8) ALT (SGPT) (test code = 31 IU/L 0-44 1742-6) [facility] Description: Comp. Metabolic Panel (14)2020-03-07 06:49:00 Test Item Value Reference Range Interpretation Comments Glucose (test code = 2345-7) 441 mg/dL 65-99 H BUN (test code = 3094-0) 52 mg/dL 6-24 H Creatinine (test code = 2.05 mg/dL 0.76-1.27 H 2160-0) eGFR If NonAfricn Am (test 38 mL/min/1.73 >59 L code = 35304-6) eGFR If Africn Am (test code = 44 mL/min/1.73 >59 L 37932-3) BUN/Creatinine Ratio (test 25 9-20 H code = 3097-3) Sodium (test code = 2951-2) 138 mmol/L 134-144 Potassium (test code = 2823-3) 5.4 mmol/L 3.5-5.2 H Chloride (test code = 2075-0) 96 mmol/L 96-106 Carbon Dioxide, Total (test 29 mmol/L 20-29 code = 8-9) Calcium (test code = 35937-8) 9.2 mg/dL 8.7-10.2 Protein, Total (test code = 6.2 g/dL 6.0-8.5 2885-2) Albumin (test code = 1751-7) 3.4 g/dL 4.0-5.0 L Globulin, Total (test code = 2.8 g/dL 1.5-4.5 29834-7) A/G Ratio (test code = 1759-0) 1.2 1.2-2.2 Bilirubin, Total (test code = 0.5 mg/dL 0.0-1.2 1975-2) Alkaline Phosphatase (test 112 IU/L 39-117 code = 6768-6) AST (SGOT) (test code = 21 IU/L 0-40 1920-8) ALT (SGPT) (test code = 31 IU/L 0-44 1742-6) [facility] Description: Comp. Metabolic Panel (142020-03-07 06:49:00 Test Item Value Reference Range Interpretation Comments Glucose (test code = 2345-7) 441 mg/dL 65-99 H BUN (test code = 3094-0) 52 mg/dL 6-24 H Creatinine (test code = 2.05 mg/dL 0.76-1.27 H 2160-0) eGFR If NonAfricn Am (test 38 mL/min/1.73 >59 L code = 90882-8) eGFR If Africn Am (test code = 44 mL/min/1.73 >59 L 61494-9) BUN/Creatinine Ratio (test 25 9-20 H code = 3097-3) Sodium (test code = 2951-2) 138 mmol/L 134-144 Potassium (test code = 2823-3) 5.4 mmol/L 3.5-5.2 H Chloride (test code = 2075-0) 96 mmol/L 96-106 Carbon Dioxide, Total (test 29 mmol/L 20-29 code = 8-9) Calcium (test code = 29421-3) 9.2 mg/dL 8.7-10.2 Protein, Total (test code = 6.2 g/dL 6.0-8.5 2885-2) Albumin (test code = 1751-7) 3.4 g/dL 4.0-5.0 L Globulin, Total (test code = 2.8 g/dL 1.5-4.5 12392-8) A/G Ratio (test code = 1759-0) 1.2 1.2-2.2 Bilirubin, Total (test code = 0.5 mg/dL 0.0-1.2 1974-) Alkaline Phosphatase (test 112 IU/L 39-117 code = 6768-6) AST (SGOT) (test code = 21 IU/L 0-40 1920-8) ALT (SGPT) (test code = 31 IU/L 0-44 1742-6) [facility] Description: Comp. Metabolic Panel (14)2020-03-07 06:49:00 Test Item Value Reference Range Interpretation Comments Glucose (test code = 2345-7) 441 mg/dL 65-99 H BUN (test code = 3094-0) 52 mg/dL 6-24 H Creatinine (test code = 2.05 mg/dL 0.76-1.27 H 2160-0) eGFR If NonAfricn Am (test 38 mL/min/1.73 >59 L code = 75273-9) eGFR If Africn Am (test code = 44 mL/min/1.73 >59 L 35273-4) BUN/Creatinine Ratio (test 25 9-20 H code = 3097-3) Sodium (test code = 2951-2) 138 mmol/L 134-144 Potassium (test code = 2823-3) 5.4 mmol/L 3.5-5.2 H Chloride (test code = 2075-0) 96 mmol/L 96-106 Carbon Dioxide, Total (test 29 mmol/L 20-29 code = 2027-9) Calcium (test code = 66443-0) 9.2 mg/dL 8.7-10.2 Protein, Total (test code = 6.2 g/dL 6.0-8.5 2885-2) Albumin (test code = 1751-7) 3.4 g/dL 4.0-5.0 L Globulin, Total (test code = 2.8 g/dL 1.5-4.5 28888-6) A/G Ratio (test code = 1759-0) 1.2 1.2-2.2 Bilirubin, Total (test code = 0.5 mg/dL 0.0-1.2 1974-04) Alkaline Phosphatase (test 112 IU/L 39-117 code = 6768-6) AST (SGOT) (test code = 21 IU/L 0-40 1920-8) ALT (SGPT) (test code = 31 IU/L 0-44 1742-6) [facility] Description: Comp. Metabolic Panel (14)2020-03-07 06:49:00 Test Item Value Reference Range Interpretation Comments Glucose (test code = 2345-7) 441 mg/dL 65-99 H BUN (test code = 3094-0) 52 mg/dL 6-24 H Creatinine (test code = 2.05 mg/dL 0.76-1.27 H 2160-0) eGFR If NonAfricn Am (test 38 mL/min/1.73 >59 L code = 45402-2) eGFR If Africn Am (test code = 44 mL/min/1.73 >59 L 38274-2) BUN/Creatinine Ratio (test 25 9-20 H code = 3097-3) Sodium (test code = 2951-2) 138 mmol/L 134-144 Potassium (test code = 2823-3) 5.4 mmol/L 3.5-5.2 H Chloride (test code = 2075-0) 96 mmol/L 96-106 Carbon Dioxide, Total (test 29 mmol/L 20-29 code = 8-9) Calcium (test code = 95134-3) 9.2 mg/dL 8.7-10.2 Protein, Total (test code = 6.2 g/dL 6.0-8.5 2885-2) Albumin (test code = 1751-7) 3.4 g/dL 4.0-5.0 L Globulin, Total (test code = 2.8 g/dL 1.5-4.5 80167-3) A/G Ratio (test code = 1759-0) 1.2 [...] (test 38 mL/min/1.73 >59 L code = 98497-6) eGFR If Africn Am (test code = 44 mL/min/1.73 >59 L 97332-3) BUN/Creatinine Ratio (test 25 9-20 H code = 3097-3) Sodium (test code = 2951-2) 138 mmol/L 134-144 Potassium (test code = 2823-3) 5.4 mmol/L 3.5-5.2 H Chloride (test code = 2075-0) 96 mmol/L 96-106 Carbon Dioxide, Total (test 29 mmol/L 20-29 code = 2027-9) Calcium (test code = 51424-0) 9.2 mg/dL 8.7-10.2 Protein, Total (test code = 6.2 g/dL 6.0-8.5 2885-2) Albumin (test code = 1751-7) 3.4 g/dL 4.0-5.0 L Globulin, Total (test code = 2.8 g/dL 1.5-4.5 19239-5) A/G Ratio (test code = 1759-0) 1.2 1.2-2.2 Bilirubin, Total (test code = 0.5 mg/dL 0.0-1.2 1975-2) Alkaline Phosphatase (test 112 IU/L 39-117 code = 6768-6) AST (SGOT) (test code = 21 IU/L 0-40 1920-8) ALT (SGPT) (test code = 31 IU/L 0-44 1742-6) [facility] Description: Comp. Metabolic Panel (14)2020-03-07 06:49:00 Test Item Value Reference Range Interpretation Comments Glucose (test code = 2345-7) 441 mg/dL 65-99 H BUN (test code = 3094-0) 52 mg/dL 6-24 H Creatinine (test code = 2.05 mg/dL 0.76-1.27 H 2160-0) eGFR If NonAfricn Am (test 38 mL/min/1.73 >59 L code = 28293-5) eGFR If Africn Am (test code = 44 mL/min/1.73 >59 L 63738-8) BUN/Creatinine Ratio (test 25 9-20 H code = 3097-3) Sodium (test code = 2951-2) 138 mmol/L 134-144 Potassium (test code = 2823-3) 5.4 mmol/L 3.5-5.2 H Chloride (test code = 2075-0) 96 mmol/L 96-106 Carbon Dioxide, Total (test 29 mmol/L 20-29 code = 8-9) Calcium (test code = 70162-5) 9.2 mg/dL 8.7-10.2 Protein, Total (test code = 6.2 g/dL 6.0-8.5 2885-2) Albumin (test code = 1751-7) 3.4 g/dL 4.0-5.0 L Globulin, Total (test code = 2.8 g/dL 1.5-4.5 46312-6) A/G Ratio (test code = 1759-0) 1.2 1.2-2.2 Bilirubin, Total (test code = 0.5 mg/dL 0.0-1.2 1975-2) Alkaline Phosphatase (test 112 IU/L 39-117 code = 6768-6) AST (SGOT) (test code = 21 IU/L 0-40 1920-8) ALT (SGPT) (test code = 31 IU/L 0-44 1742-6) [facility] Description: Comp. Metabolic Panel (142020-03-07 06:49:00 Test Item Value Reference Range Interpretation Comments Glucose (test code = 2345-7) 441 mg/dL 65-99 H BUN (test code = 3094-0) 52 mg/dL 6-24 H Creatinine (test code = 2.05 mg/dL 0.76-1.27 H 2160-0) eGFR If NonAfricn Am (test 38 mL/min/1.73 >59 L code = 00370-6) eGFR If Africn Am (test code = 44 mL/min/1.73 >59 L 38717-4) BUN/Creatinine Ratio (test 25 9-20 H code = 3097-3) Sodium (test code = 2951-2) 138 mmol/L 134-144 Potassium (test code = 2823-3) 5.4 mmol/L 3.5-5.2 H Chloride (test code = 2075-0) 96 mmol/L 96-106 Carbon Dioxide, Total (test 29 mmol/L 20-29 code = 8-9) Calcium (test code = 50298-3) 9.2 mg/dL 8.7-10.2 Protein, Total (test code = 6.2 g/dL 6.0-8.5 2885-2) Albumin (test code = 1751-7) 3.4 g/dL 4.0-5.0 L Globulin, Total (test code = 2.8 g/dL 1.5-4.5 99945-0) A/G Ratio (test code = 1759-0) 1.2 1.2-2.2 Bilirubin, Total (test code = 0.5 mg/dL 0.0-1.2 1975-2) Alkaline Phosphatase (test 112 IU/L 39-117 code = 6768-6) AST (SGOT) (test code = 21 IU/L 0-40 1920-8) ALT (SGPT) (test code = 31 IU/L 0-44 1742-6) [facility] Description: Comp. Metabolic Panel (142020-03-07 06:49:00 Test Item Value Reference Range Interpretation Comments Glucose (test code = 2345-7) 441 mg/dL 65-99 H BUN (test code = 3094-0) 52 mg/dL 6-24 H Creatinine (test code = 2.05 mg/dL 0.76-1.27 H 2160-0) eGFR If NonAfricn Am (test 38 mL/min/1.73 >59 L code = 70080-4) eGFR If Africn Am (test code = 44 mL/min/1.73 >59 L 59322-7) BUN/Creatinine Ratio (test 25 9-20 H code = 3097-3) Sodium (test code = 2951-2) 138 mmol/L 134-144 Potassium (test code = 2823-3) 5.4 mmol/L 3.5-5.2 H Chloride (test code = 2075-0) 96 mmol/L 96-106 Carbon Dioxide, Total (test 29 mmol/L 20-29 code = 8-9) Calcium (test code = 94563-5) 9.2 mg/dL 8.7-10.2 Protein, Total (test code = 6.2 g/dL 6.0-8.5 2885-2) Albumin (test code = 1751-7) 3.4 g/dL 4.0-5.0 L Globulin, Total (test code = 2.8 g/dL 1.5-4.5 74390-4) A/G Ratio (test code = 1759-0) 1.2 1.2-2.2 Bilirubin, Total (test code = 0.5 mg/dL 0.0-1.2 1975-2) Alkaline Phosphatase (test 112 IU/L 39-117 code = 6768-6) AST (SGOT) (test code = 21 IU/L 0-40 1920-8) ALT (SGPT) (test code = 31 IU/L 0-44 1742-6) [facility] Description: Comp. Metabolic Panel (14)2020-03-07 06:49:00 Test Item Value Reference Range Interpretation Comments Glucose (test code = 2345-7) 441 mg/dL 65-99 H BUN (test code = 3094-0) 52 mg/dL 6-24 H Creatinine (test code = 2.05 mg/dL 0.76-1.27 H 2160-0) eGFR If NonAfricn Am (test 38 mL/min/1.73 >59 L code = 20011-4) eGFR If Africn Am (test code = 44 mL/min/1.73 >59 L 71055-4) BUN/Creatinine Ratio (test 25 9-20 H code = 3097-3) Sodium (test code = 2951-2) 138 mmol/L 134-144 Potassium (test code = 2823-3) 5.4 mmol/L 3.5-5.2 H Chloride (test code = 2075-0) 96 mmol/L 96-106 Carbon Dioxide, Total (test 29 mmol/L - code = 2027-9) Calcium (test code = 72309-8) 9.2 mg/dL 8.7-10.2 Protein, Total (test code = 6.2 g/dL 6.0-8.5 2885-2) Albumin (test code = 1751-7) 3.4 g/dL 4.0-5.0 L Globulin, Total (test code = 2.8 g/dL 1.5-4.5 94455-5) A/G Ratio (test code = 1759-0) 1.2 1.2-2.2 Bilirubin, Total (test code = 0.5 mg/dL 0.0-1.2 1975-2) Alkaline Phosphatase (test 112 IU/L 39-117 code = 6768-6) AST (SGOT) (test code = 21 IU/L 0-40 1920-8) ALT (SGPT) (test code = 31 IU/L 0-44 1742-6) [facility] Description: Comp. Metabolic Panel (14)2020-03-07 06:49:00 Test Item Value Reference Range Interpretation Comments Glucose (test code = 2345-7) 441 mg/dL 65-99 H BUN (test code = 3094-0) 52 mg/dL 6-24 H Creatinine (test code = 2.05 mg/dL 0.76-1.27 H 2160-0) eGFR If NonAfricn Am (test 38 mL/min/1.73 >59 L code = 99055-7) eGFR If Africn Am (test code = 44 mL/min/1.73 >59 L 35837-2) BUN/Creatinine Ratio (test 25 9-20 H code = 3097-3) Sodium (test code = 2951-2) 138 mmol/L 134-144 Potassium (test code = 2823-3) 5.4 mmol/L 3.5-5.2 H Chloride (test code = 2075-0) 96 mmol/L 96-106 Carbon Dioxide, Total (test 29 mmol/L -29 code = 2027-9) Calcium (test code = 14218-1) 9.2 mg/dL 8.7-10.2 Protein, Total (test code = 6.2 g/dL 6.0-8.5 2885-2) Albumin (test code = 1751-7) 3.4 g/dL 4.0-5.0 L Globulin, Total (test code = 2.8 g/dL 1.5-4.5 51214-6) A/G Ratio (test code = 1759-0) 1.2 1.2-2.2 Bilirubin, Total (test code = 0.5 mg/dL 0.0-1.2 1975-2) Alkaline Phosphatase (test 112 IU/L 39-117 code = 6768-6) AST (SGOT) (test code = 21 IU/L 0-40 1920-8) ALT (SGPT) (test code = 31 IU/L 0-44 1742-6) [facility] Description: Comp. Metabolic Panel (2020-03-07 06:49:00 Test Item Value Reference Range Interpretation Comments Glucose (test code = 2345-7) 441 mg/dL 65-99 H BUN (test code = 3094-0) 52 mg/dL 6-24 H Creatinine (test code = 2.05 mg/dL 0.76-1.27 H 2160-0) eGFR If NonAfricn Am (test 38 mL/min/1.73 >59 L code = 72456-2) eGFR If Africn Am (test code = 44 mL/min/1.73 >59 L 52554-2) BUN/Creatinine Ratio (test 25 9-20 H code = 3097-3) Sodium (test code = 2951-2) 138 mmol/L 134-144 Potassium (test code = 2823-3) 5.4 mmol/L 3.5-5.2 H Chloride (test code = 2075-0) 96 mmol/L 96-106 Carbon Dioxide, Total (test 29 mmol/L 20-29 code = 8-9) Calcium (test code = 01754-2) 9.2 mg/dL 8.7-10.2 Protein, Total (test code = 6.2 g/dL 6.0-8.5 2885-2) Albumin (test code = 1751-7) 3.4 g/dL 4.0-5.0 L Globulin, Total (test code = 2.8 g/dL 1.5-4.5 87783-6) A/G Ratio (test code = 1759-0) 1.2 1.2-2.2 Bilirubin, Total (test code = 0.5 mg/dL 0.0-1.2 1974-2) Alkaline Phosphatase (test 112 IU/L 39-117 code = 6768-6) AST (SGOT) (test code = 21 IU/L 0-40 1920-8) ALT (SGPT) (test code = 31 IU/L 0-44 1742-6) [facility] Description: Comp. Metabolic Panel (2020-03-07 06:49:00 Test Item Value Reference Range Interpretation Comments Glucose (test code = 2345-7) 441 mg/dL 65-99 H BUN (test code = 3094-0) 52 mg/dL 6-24 H Creatinine (test code = 2.05 mg/dL 0.76-1.27 H 2160-0) eGFR If NonAfricn Am (test 38 mL/min/1.73 >59 L code = 60264-7) eGFR If Africn Am (test code = 44 mL/min/1.73 >59 L 04235-5) BUN/Creatinine Ratio (test 25 9-20 H code = 3097-3) Sodium (test code = 2951-2) 138 mmol/L 134-144 Potassium (test code = 2823-3) 5.4 mmol/L 3.5-5.2 H Chloride (test code = 2075-0) 96 mmol/L 96-106 Carbon Dioxide, Total (test 29 mmol/L 20-29 code = 8-9) Calcium (test code = 12745-5) 9.2 mg/dL 8.7-10.2 Protein, Total (test code = 6.2 g/dL 6.0-8.5 2885-2) Albumin (test code = 1751-7) 3.4 g/dL 4.0-5.0 L Globulin, Total (test code = 2.8 g/dL 1.5-4.5 19435-1) A/G Ratio (test code = 1759-0) 1.2 1.2-2.2 Bilirubin, Total (test code = 0.5 mg/dL 0.0-1.2 1974-) Alkaline Phosphatase (test 112 IU/L 39-117 code = 6768-6) AST (SGOT) (test code = 21 IU/L 0-40 1920-8) ALT (SGPT) (test code = 31 IU/L 0-44 1742-6) [facility] Description: Comp. Metabolic Panel (142020-03-07 06:49:00 Test Item Value Reference Range Interpretation Comments Glucose (test code = 2345-7) 441 mg/dL 65-99 H BUN (test code = 3094-0) 52 mg/dL 6-24 H Creatinine (test code = 2.05 mg/dL 0.76-1.27 H 2160-0) eGFR If NonAfricn Am (test 38 mL/min/1.73 >59 L code = 12502-2) eGFR If Africn Am (test code = 44 mL/min/1.73 >59 L 80495-2) BUN/Creatinine Ratio (test 25 9-20 H code = 3097-3) Sodium (test code = 2951-2) 138 mmol/L 134-144 Potassium (test code = 2823-3) 5.4 mmol/L 3.5-5.2 H Chloride (test code = 2075-0) 96 mmol/L 96-106 Carbon Dioxide, Total (test 29 mmol/L 20-29 code = 8-9) Calcium (test code = 01868-4) 9.2 mg/dL 8.7-10.2 Protein, Total (test code = 6.2 g/dL 6.0-8.5 2885-2) Albumin (test code = 1751-7) 3.4 g/dL 4.0-5.0 L Globulin, Total (test code = 2.8 g/dL 1.5-4.5 08932-0) A/G Ratio (test code = 1759-0) 1.2 1.2-2.2 Bilirubin, Total (test code = 0.5 mg/dL 0.0-1.2 1975-2) Alkaline Phosphatase (test 112 IU/L 39-117 code = 6768-6) AST (SGOT) (test code = 21 IU/L 0-40 1920-8) ALT (SGPT) (test code = 31 IU/L 0-44 1742-6) [facility][id number] 07:17:11Tyshawn Serra MD 2019 7:47 AMIncision/DrainageDate/Time: 2019 [...] NoneType of anesthesia: NoneGrafts or Implan ts: [facility] Description: Hemoglobin A1c/Hemoglobin.total in [id number] 16:33:00 Test Item Value Reference Range Interpretation Comments Hemoglobin A1c (test code 13.0 % 4.8-5.6 H = 4548-4) . Prediabetes: 5. 7 - 6.4 Diabete s: >6.4 Glycemi c control for niall lts with diabetes: <7.0

P erforme d by:
[facility] ()

[facility] Description: Hemoglobin A1c/Hemoglobin.total in Blood 2019-11-10 16:33:00 Test Item Value Reference Range Interpretation Comments Hemoglobin A1c (test code 13.0 % 4.8-5.6 H = 4548-4) . Prediabetes: 5. 7 - 6.4 Diabete s: >6.4 Glycemi c control for niall lts with diabetes: <7.0

P erforme d by:
[facility] ([place])

[facility] Description: Hemoglobin A1c/Hemoglobin.total in Blood 2019-11-10 16:33:00 Test Item Value Reference Range Interpretation Comments Hemoglobin A1c (test code 13.0 % 4.8-5.6 H = 4548-4) . Prediabetes: 5. 7 - 6.4 Diabete s: >6.4 Glycemi c control for niall lts with diabetes: <7.0

P erforme d by:
[facility] ([place])

[facility] Hemoglobin A1c/Hemoglobin.total in Blood 2019-11-10 16:33:00 Test Item Value Reference Range Interpretation Comments Hemoglobin A1c (test code 13.0 % 4.8-5.6 H = 4548-4) . Prediabetes: 5. 7 - 6.4 Diabete s: >6.4 Glycemi c control for niall lts with diabetes: <7.0

P erforme d by:
[facility] ()

[facility]: Hemoglobin A1c/Hemoglobin.total in Blood 2019-11-10 16:33:00 Test Item Value Reference Range Interpretation Comments Hemoglobin A1c (test code 13.0 % 4.8-5.6 H = 4548-4) . Prediabetes: 5. 7 - 6.4 Diabete s: >6.4 Glycemi c control for niall lts with diabetes: <7.0

P erforme d by:
[facility] ([place])

[facility]: Hemoglobin A1c/Hemoglobin.total in Blood 2019-11-10 16:33:00 Test Item Value Reference Range Interpretation Comments Hemoglobin A1c (test code 13.0 % 4.8-5.6 H = 4548-4) . Prediabetes: 5. 7 - 6.4 Diabete s: >6.4 Glycemi c control for niall lts with diabetes: <7.0

P erforme d by:
[facility] ([place])

[facility] Description: Hemoglobin A1c/Hemoglobin.total in Blood 2019-11-10 16:33:00 Test Item Value Reference Range Interpretation Comments Hemoglobin A1c (test code 13.0 % 4.8-5.6 H = 4548-4) . Prediabetes: 5. 7 - 6.4 Diabete s: >6.4 Glycemi c control for niall lts with diabetes: <7.0

P erforme d by:
[facility] ([place])

[facility]: Hemoglobin A1c/Hemoglobin.total in Blood 2019-11-10 16:33:00 Test Item Value Reference Range Interpretation Comments Hemoglobin A1c (test code 13.0 % 4.8-5.6 H = 4548-4) . Prediabetes: 5. 7 - 6.4 Diabete s: >6.4 Glycemi c control for niall lts with diabetes: <7.0

P erforme d by:
[facility] ()

[facility]: Hemoglobin A1c/Hemoglobin.total in Blood 2019-11-10 16:33:00 Test Item Value Reference Range Interpretation Comments Hemoglobin A1c (test code 13.0 % 4.8-5.6 H = 4548-4) . Prediabetes: 5. 7 - 6.4 Diabete s: >6.4 Glycemi c control for niall lts with diabetes: <7.0

P erforme d by:
[facility] ([place])

[facility]: Hemoglobin A1c/Hemoglobin.total in Blood 2019-11-10 16:33:00 Test Item Value Reference Range Interpretation Comments Hemoglobin A1c (test code 13.0 % 4.8-5.6 H = 4548-4) . Prediabetes: 5. 7 - 6.4 Diabete s: >6.4 Glycemi c control for niall lts with diabetes: <7.0

P erforme d by:
[facility] ([place])

[facility] Description: Hemoglobin A1c/Hemoglobin.total in Blood 2019-11-10 16:33:00 Test Item Value Reference Range Interpretation Comments Hemoglobin A1c (test code 13.0 % 4.8-5.6 H = 4548-4) . Prediabetes: 5. 7 - 6.4 Diabete s: >6.4 Glycemi c control for niall lts with diabetes: <7.0

P erforme d by:
[facility] ([place])

[facility]: Hemoglobin A1c/Hemoglobin.total in Blood 2019-11-10 16:33:00 Test Item Value Reference Range Interpretation Comments Hemoglobin A1c (test code 13.0 % 4.8-5.6 H = 4548-4) . Prediabetes: 5. 7 - 6.4 Diabete s: >6.4 Glycemi c control for niall lts with diabetes: <7.0

P erforme d by:
[facility] ()

[facility]: Hemoglobin A1c/Hemoglobin.total in Blood 2019-11-10 16:33:00 Test Item Value Reference Range Interpretation Comments Hemoglobin A1c (test code 13.0 % 4.8-5.6 H = 4548-4) . Prediabetes: 5. 7 - 6.4 Diabete s: >6.4 Glycemi c control for niall lts with diabetes: <7.0

P erforme d by:
[facility] ([place])

[facility]: Hemoglobin A1c/Hemoglobin.total in Blood 2019-11-10 16:33:00 Test Item Value Reference Range Interpretation Comments Hemoglobin A1c (test code 13.0 % 4.8-5.6 H = 4548-4) . Prediabetes: 5. 7 - 6.4 Diabete s: >6.4 Glycemi c control for niall lts with diabetes: <7.0

P erforme d by:
[facility] ([place])

[facility] Description: Hemoglobin A1c/Hemoglobin.total in Blood 2019-11-10 16:33:00 Test Item Value Reference Range Interpretation Comments Hemoglobin A1c (test code 13.0 % 4.8-5.6 H = 4548-4) . Prediabetes: 5. 7 - 6.4 Diabete s: >6.4 Glycemi c control for niall lts with diabetes: <7.0

P erforme d by:
[facility] ([place])

[facility]: Hemoglobin A1c/Hemoglobin.total in Blood 2019-11-10 16:33:00 Test Item Value Reference Range Interpretation Comments Hemoglobin A1c (test code 13.0 % 4.8-5.6 H = 4548-4) . Prediabetes: 5. 7 - 6.4 Diabete s: >6.4 Glycemi c control for niall lts with diabetes: <7.0

P erforme d by:
[facility] ()

[facility]: Hemoglobin A1c/Hemoglobin.total in Blood 2019-11-10 16:33:00 Test Item Value Reference Range Interpretation Comments Hemoglobin A1c (test code 13.0 % 4.8-5.6 H = 4548-4) . Prediabetes: 5. 7 - 6.4 Diabete s: >6.4 Glycemi c control for niall lts with diabetes: <7.0

P erforme d by:
[facility] ([place])

[facility]: Hemoglobin A1c/Hemoglobin.total in Blood 2019-11-10 16:33:00 Test Item Value Reference Range Interpretation Comments Hemoglobin A1c (test code 13.0 % 4.8-5.6 H = 4548-4) . Prediabetes: 5. 7 - 6.4 Diabete s: >6.4 Glycemi c control for niall lts with diabetes: <7.0

P erforme d by:
[facility] ([place])

[facility] Description: Hemoglobin A1c/Hemoglobin.total in Blood 2019-11-10 16:33:00 Test Item Value Reference Range Interpretation Comments Hemoglobin A1c (test code 13.0 % 4.8-5.6 H = 4548-4) . Prediabetes: 5. 7 - 6.4 Diabete s: >6.4 Glycemi c control for niall lts with diabetes: <7.0

P erforme d by:
[facility] ([place])

[facility]: Hemoglobin A1c/Hemoglobin.total in Blood 2019-11-10 16:33:00 Test Item Value Reference Range Interpretation Comments Hemoglobin A1c (test code 13.0 % 4.8-5.6 H = 4548-4) . Prediabetes: 5. 7 - 6.4 Diabete s: >6.4 Glycemi c control for niall lts with diabetes: <7.0

P erforme d by:
[facility] ()

[facility]: Hemoglobin A1c/Hemoglobin.total in Blood 2019-11-10 16:33:00 Test Item Value Reference Range Interpretation Comments Hemoglobin A1c (test code 13.0 % 4.8-5.6 H = 4548-4) . Prediabetes: 5. 7 - 6.4 Diabete s: >6.4 Glycemi c control for niall lts with diabetes: <7.0

P erforme d by:
[facility] ([place])

[facility]: Hemoglobin A1c/Hemoglobin.total in Blood 2019-11-10 16:33:00 Test Item Value Reference Range Interpretation Comments Hemoglobin A1c (test code 13.0 % 4.8-5.6 H = 4548-4) . Prediabetes: 5. 7 - 6.4 Diabete s: >6.4 Glycemi c control for niall lts with diabetes: <7.0

P erforme d by:
[facility] ([place])

[facility] Description: Hemoglobin A1c/Hemoglobin.total in Blood 2019-11-10 16:33:00 Test Item Value Reference Range Interpretation Comments Hemoglobin A1c (test code 13.0 % 4.8-5.6 H = 4548-4) . Prediabetes: 5. 7 - 6.4 Diabete s: >6.4 Glycemi c control for niall lts with diabetes: <7.0

P erforme d by:
[facility] ([place])

[facility]: Hemoglobin A1c/Hemoglobin.total in Blood 2019-11-10 16:33:00 Test Item Value Reference Range Interpretation Comments Hemoglobin A1c (test code 13.0 % 4.8-5.6 H = 4548-4) . Prediabetes: 5. 7 - 6.4 Diabete s: >6.4 Glycemi c control for niall lts with diabetes: <7.0

P erforme d by:
[facility] ()

[facility]: Hemoglobin A1c/Hemoglobin.total in Blood 2019-11-10 16:33:00 Test Item Value Reference Range Interpretation Comments Hemoglobin A1c (test code 13.0 % 4.8-5.6 H = 4548-4) . Prediabetes: 5. 7 - 6.4 Diabete s: >6.4 Glycemi c control for niall lts with diabetes: <7.0

P erforme d by:
[facility] ([place])

[facility]: Hemoglobin A1c/Hemoglobin.total in Blood 2019-11-10 16:33:00 Test Item Value Reference Range Interpretation Comments Hemoglobin A1c (test code 13.0 % 4.8-5.6 H = 4548-4) . Prediabetes: 5. 7 - 6.4 Diabete s: >6.4 Glycemi c control for niall lts with diabetes: <7.0

P erforme d by:
[facility] ([place])

[facility]: Hemoglobin A1c/Hemoglobin.total in Blood 2019-11-10 16:33:00 Test Item Value Reference Range Interpretation Comments Hemoglobin A1c (test code 13.0 % 4.8-5.6 H = 4548-4) . Prediabetes: 5. 7 - 6.4 Diabete s: >6.4 Glycemi c control for niall lts with diabetes: <7.0

P erforme d by:
[facility] [place] ([place])

[facility]: Comp. Metabolic Panel (14)2019-11-10 03:19:00 Test Item Value Reference Range Interpretation Comments Glucose (test code = 2345-7) 439 mg/dL 65-99 H BUN (test code = 3094-0) 49 mg/dL 6-24 H Creatinine (test code = 2.17 mg/dL 0.76-1.27 H 2160-0) eGFR If NonAfricn Am (test 35 mL/min/1.73 >59 L code = 07846-7) eGFR If Africn Am (test code = 41 mL/min/1.73 >59 L 68457-1) BUN/Creatinine Ratio (test 23 9-20 H code = 3097-3) Sodium (test code = 2951-2) 137 mmol/L 134-144 Potassium (test code = 2823-3) 4.9 mmol/L 3.5-5.2 Chloride (test code = 2075-0) 93 mmol/L 96-106 L Carbon Dioxide, Total (test 29 mmol/L 20-29 code = 8-9) Calcium (test code = 77568-8) 9.5 mg/dL 8.7-10.2 Protein, Total (test code = 6.5 g/dL 6.0-8.5 2885-2) Albumin (test code = 1751-7) 3.6 g/dL 4.0-5.0 L Globulin, Total (test code = 2.9 g/dL 1.5-4.5 89518-9) A/G Ratio (test code = 1759-0) 1.2 1.2-2.2 Bilirubin, Total (test code = 0.5 mg/dL 0.0-1.2 1974-2) Alkaline Phosphatase (test 103 IU/L 39-117 code = 6768-6) AST (SGOT) (test code = 20 IU/L 0-40 1920-8) ALT (SGPT) (test code = 30 IU/L 0-44 1742-6) [employer] Description: Lipid [id number] 03:19:00 Test Item Value Reference Range Interpretation Comments Cholesterol, Total (test code = 231 mg/dL 100-199 H 2093-3) Triglycerides (test code = 2571-8) 215 mg/dL 0-149 H HDL Cholesterol (test code = 34 mg/dL >39 L 5-9) VLDL Cholesterol Renuka (test code = 43 mg/dL 5-40 H 74970-0) LDL Cholesterol Calc (test code = 154 mg/dL 0-99 H 82493-5) Comment: (test code = 87614-2) [employer] [facility] Description: Comp. Metabolic Panel (2019-11-10 03:19:00 Test Item Value Reference Range Interpretation Comments Glucose (test code = 2345-7) 439 mg/dL 65-99 H BUN (test code = 3094-0) 49 mg/dL 6-24 H Creatinine (test code = 2.17 mg/dL 0.76-1.27 H 2160-0) eGFR If NonAfricn Am (test 35 mL/min/1.73 >59 L code = 70478-2) eGFR If Africn Am (test code = 41 mL/min/1.73 >59 L 28840-8) BUN/Creatinine Ratio (test 23 9-20 H code = 3097-3) Sodium (test code = 2951-2) 137 mmol/L 134-144 Potassium (test code = 2823-3) 4.9 mmol/L 3.5-5.2 Chloride (test code = 2075-0) 93 mmol/L 96-106 L Carbon Dioxide, Total (test 29 mmol/L 20-29 code = 8-9) Calcium (test code = 27077-5) 9.5 mg/dL 8.7-10.2 Protein, Total (test code = 6.5 g/dL 6.0-8.5 2885-2) Albumin (test code = 1751-7) 3.6 g/dL 4.0-5.0 L Globulin, Total (test code = 2.9 g/dL 1.5-4.5 65509-8) A/G Ratio (test code = 1759-0) 1.2 1.2-2.2 Bilirubin, Total (test code = 0.5 mg/dL 0.0-1.2 1975-2) Alkaline Phosphatase (test 103 IU/L 39-117 code = 6768-6) AST (SGOT) (test code = 20 IU/L 0-40 1920-8) ALT (SGPT) (test code = 30 IU/L 0-44 1742-6) [employer] Description: Lipid [id number] 03:19:00 Test Item Value Reference Range Interpretation Comments Cholesterol, Total (test code = 231 mg/dL 100-199 H 2093-3) Triglycerides (test code = 2571-8) 215 mg/dL 0-149 H HDL Cholesterol (test code = 34 mg/dL >39 L 5-9) VLDL Cholesterol Renuka (test code = 43 mg/dL 5-40 H 03328-8) LDL Cholesterol Calc (test code = 154 mg/dL 0-99 H 86220-2) Comment: (test code = 63250-7) [employer] [facility] Description: Comp. Metabolic Panel (14)2019-11-10 03:19:00 Test Item Value Reference Range Interpretation Comments Glucose (test code = 2345-7) 439 mg/dL 65-99 H BUN (test code = 3094-0) 49 mg/dL 6-24 H Creatinine (test code = 2.17 mg/dL 0.76-1.27 H 2160-0) eGFR If NonAfricn Am (test 35 mL/min/1.73 >59 L code = 42156-3) eGFR If Africn Am (test code = 41 mL/min/1.73 >59 L 29648-7) BUN/Creatinine Ratio (test 23 9-20 H code = 3097-3) Sodium (test code = 2951-2) 137 mmol/L 134-144 Potassium (test code = 2823-3) 4.9 mmol/L 3.5-5.2 Chloride (test code = 2075-0) 93 mmol/L 96-106 L Carbon Dioxide, Total (test 29 mmol/L 20-29 code = 8-9) Calcium (test code = 69043-0) 9.5 mg/dL 8.7-10.2 Protein, Total (test code = 6.5 g/dL 6.0-8.5 2885-2) Albumin (test code = 1751-7) 3.6 g/dL 4.0-5.0 L Globulin, Total (test code = 2.9 g/dL 1.5-4.5 90871-3) A/G Ratio (test code = 1759-0) 1.2 1.2-2.2 Bilirubin, Total (test code = 0.5 mg/dL 0.0-1.2 1974-2) Alkaline Phosphatase (test 103 IU/L 39-117 code = 6768-6) AST (SGOT) (test code = 20 IU/L 0-40 1920-8) ALT (SGPT) (test code = 30 IU/L 0-44 1742-6) [employer] Description: Lipid [id number] 03:19:00 Test Item Value Reference Range Interpretation Comments Cholesterol, Total (test code = 231 mg/dL 100-199 H 3-3) Triglycerides (test code = 2571-8) 215 mg/dL 0-149 H HDL Cholesterol (test code = 34 mg/dL >39 L 2084-9) VLDL Cholesterol Renuka (test code = 43 mg/dL 5-40 H 53429-4) LDL Cholesterol Calc (test code = 154 mg/dL 0-99 H 87694-0) Comment: (test code = 68465-6) [employer] [facility] Description: Comp. Metabolic Panel (14)2019-11-10 03:19:00 Test Item Value Reference Range Interpretation Comments Glucose (test code = 2345-7) 439 mg/dL 65-99 H BUN (test code = 3094-0) 49 mg/dL 6-24 H Creatinine (test code = 2.17 mg/dL 0.76-1.27 H 2160-0) eGFR If NonAfricn Am (test 35 mL/min/1.73 >59 L code = 96049-3) eGFR If Africn Am (test code = 41 mL/min/1.73 >59 L 31684-7) BUN/Creatinine Ratio (test 23 9-20 H code = 3097-3) Sodium (test code = 2951-2) 137 mmol/L 134-144 Potassium (test code = 2823-3) 4.9 mmol/L 3.5-5.2 Chloride (test code = 2075-0) 93 mmol/L 96-106 L Carbon Dioxide, Total (test 29 mmol/L 20-29 code = 8-9) Calcium (test code = 90179-1) 9.5 mg/dL 8.7-10.2 Protein, Total (test code = 6.5 g/dL 6.0-8.5 2885-2) Albumin (test code = 1751-7) 3.6 g/dL 4.0-5.0 L Globulin, Total (test code = 2.9 g/dL 1.5-4.5 85548-3) A/G Ratio (test code = 1759-0) 1.2 1.2-2.2 Bilirubin, Total (test code = 0.5 mg/dL 0.0-1.2 1974-2) Alkaline Phosphatase (test 103 IU/L 39-117 code = 6768-6) AST (SGOT) (test code = 20 IU/L 0-40 1920-8) ALT (SGPT) (test code = 30 IU/L 0-44 1742-6) [facility]: Lipid [id number] 03:19:00 Test Item Value Reference Range Interpretation Comments Cholesterol, Total (test code = 231 mg/dL 100-199 H 2092-3) Triglycerides (test code = 2571-8) 215 mg/dL 0-149 H HDL Cholesterol (test code = 34 mg/dL >39 L 2084-9) VLDL Cholesterol Renuka (test code = 43 mg/dL 5-40 H 32588-5) LDL Cholesterol Calc (test code = 154 mg/dL 0-99 H 39607-4) Comment: (test code = 02167-7) [facility]: Comp. [facility]abolic Panel ()2019-11-10 03:19:00 Test Item Value Reference Range Interpretation Comments Glucose (test code = 2345-7) 439 mg/dL 65-99 H BUN (test code = 3094-0) 49 mg/dL 6-24 H Creatinine (test code = 2.17 mg/dL 0.76-1.27 H 2160-0) eGFR If NonAfricn Am (test 35 mL/min/1.73 >59 L code = 00707-6) eGFR If Africn Am (test code = 41 mL/min/1.73 >59 L 88394-1) BUN/Creatinine Ratio (test 23 9-20 H code = 3097-3) Sodium (test code = 2951-2) 137 mmol/L 134-144 Potassium (test code = 2823-3) 4.9 mmol/L 3.5-5.2 Chloride (test code = 2075-0) 93 mmol/L 96-106 L Carbon Dioxide, Total (test 29 mmol/L 20-29 code = 8-9) Calcium (test code = 35080-9) 9.5 mg/dL 8.7-10.2 Protein, Total (test code = 6.5 g/dL 6.0-8.5 2885-2) Albumin (test code = 1751-7) 3.6 g/dL 4.0-5.0 L Globulin, Total (test code = 2.9 g/dL 1.5-4.5 63944-5) A/G Ratio (test code = 1759-0) 1.2 1.2-2.2 Bilirubin, Total (test code = 0.5 mg/dL 0.0-1.2 1975-2) Alkaline Phosphatase (test 103 IU/L 39-117 code = 6768-6) AST (SGOT) (test code = 20 IU/L 0-40 1920-8) ALT (SGPT) (test code = 30 IU/L 0-44 1742-6) [facility] Description: Lipid [id number] 03:19:00 Test Item Value Reference Range Interpretation Comments Cholesterol, Total (test code = 231 mg/dL 100-199 H 2092-3) Triglycerides (test code = 2571-8) 215 mg/dL 0-149 H HDL Cholesterol (test code = 34 mg/dL >39 L 2084-9) VLDL Cholesterol Renuka (test code = 43 mg/dL 5-40 H 74321-1) LDL Cholesterol Calc (test code = 154 mg/dL 0-99 H 23994-0) Comment: (test code = 12832-3) [facility] Description: Comp. Metabolic Panel (14)2019-11-10 03:19:00 Test Item Value Reference Range Interpretation Comments Glucose (test code = 2345-7) 439 mg/dL 65-99 H BUN (test code = 3094-0) 49 mg/dL 6-24 H Creatinine (test code = 2.17 mg/dL 0.76-1.27 H 2160-0) eGFR If NonAfricn Am (test 35 mL/min/1.73 >59 L code = 40086-8) eGFR If Africn Am (test code = 41 mL/min/1.73 >59 L 36795-1) BUN/Creatinine Ratio (test 23 9-20 H code = 3097-3) Sodium (test code = 2951-2) 137 mmol/L 134-144 Potassium (test code = 2823-3) 4.9 mmol/L 3.5-5.2 Chloride (test code = 2075-0) 93 mmol/L 96-106 L Carbon Dioxide, Total (test 29 mmol/L 20-29 code = 8-9) Calcium (test code = 99528-6) 9.5 mg/dL 8.7-10.2 Protein, Total (test code = 6.5 g/dL 6.0-8.5 2885-2) Albumin (test code = 1751-7) 3.6 g/dL 4.0-5.0 L Globulin, Total (test code = 2.9 g/dL 1.5-4.5 81651-7) A/G Ratio (test code = 1759-0) 1.2 1.2-2.2 Bilirubin, Total (test code = 0.5 mg/dL 0.0-1.2 1975-2) Alkaline Phosphatase (test 103 IU/L 39-117 code = 6768-6) AST (SGOT) (test code = 20 IU/L 0-40 1920-8) ALT (SGPT) (test code = 30 IU/L 0-44 1742-6) [facility] Description: Lipid [id number] 03:19:00 Test Item Value Reference Range Interpretation Comments Cholesterol, Total (test code = 231 mg/dL 100-199 H 3-3) Triglycerides (test code = 2571-8) 215 mg/dL 0-149 H HDL Cholesterol (test code = 34 mg/dL >39 L 2084-9) VLDL Cholesterol Ren[place] (test code = 43 mg/dL 5-40 H 07108-7) LDL Cholesterol Calc (test code = 154 mg/dL 0-99 H 22211-4) Comment: (test code = 41072-5) [facility] Description: Comp. Metabolic Panel ()2019-11-10 03:19:00 Test Item Value Reference Range Interpretation Comments Glucose (test code = 2345-7) 439 mg/dL 65-99 H BUN (test code = 3094-0) 49 mg/dL 6-24 H Creatinine (test code = 2.17 mg/dL 0.76-1.27 H 2160-0) eGFR If NonAfricn Am (test 35 mL/min/1.73 >59 L code = 08947-2) eGFR If Africn Am (test code = 41 mL/min/1.73 >59 L 14617-0) BUN/Creatinine Ratio (test 23 9-20 H code = 3097-3) Sodium (test code = 2951-2) 137 mmol/L 134-144 Potassium (test code = 2823-3) 4.9 mmol/L 3.5-5.2 Chloride (test code = 2075-0) 93 mmol/L 96-106 L Carbon Dioxide, Total (test 29 mmol/L 20-29 code = 8-9) Calcium (test code = 68261-5) 9.5 mg/dL 8.7-10.2 Protein, Total (test code = 6.5 g/dL 6.0-8.5 2885-2) Albumin (test code = 1751-7) 3.6 g/dL 4.0-5.0 L Globulin, Total (test code = 2.9 g/dL 1.5-4.5 20998-2) A/G Ratio (test code = 1759-0) 1.2 1.2-2.2 Bilirubin, Total (test code = 0.5 mg/dL 0.0-1.2 1975-2) Alkaline Phosphatase (test 103 IU/L 39-117 code = 6768-6) AST (SGOT) (test code = 20 IU/L 0-40 1920-8) ALT (SGPT) (test code = 30 IU/L 0-44 1742-6) [employer] Description: Lipid [id number] 03:19:00 Test Item Value Reference Range Interpretation Comments Cholesterol, Total (test code = 231 mg/dL 100-199 H 2093-3) Triglycerides (test code = 2571-8) 215 mg/dL 0-149 H HDL Cholesterol (test code = 34 mg/dL >39 L 2085-9) VLDL Cholesterol Renuka (test code = 43 mg/dL 5-40 H 86007-9) LDL Cholesterol Calc (test code = 154 mg/dL 0-99 H 03731-6) Comment: (test code = 33301-1) [facility] Description: Comp. Metabolic Panel (14)2019-11-10 03:19:00 Test Item Value Reference Range Interpretation Comments Glucose (test code = 2345-7) 439 mg/dL 65-99 H BUN (test code = 3094-0) 49 mg/dL 6-24 H Creatinine (test code = 2.17 mg/dL 0.76-1.27 H 2160-0) eGFR If NonAfricn Am (test 35 mL/min/1.73 >59 L code = 52580-9) eGFR If Africn Am (test code = 41 mL/min/1.73 >59 L 96383-5) BUN/Creatinine Ratio (test 23 9-20 H code = 3097-3) Sodium (test code = 2951-2) 137 mmol/L 134-144 Potassium (test code = 2823-3) 4.9 mmol/L 3.5-5.2 Chloride (test code = 2075-0) 93 mmol/L 96-106 L Carbon Dioxide, Total (test 29 mmol/L 20-29 code = 8-9) Calcium (test code = 31601-2) 9.5 mg/dL 8.7-10.2 Protein, Total (test code = 6.5 g/dL 6.0-8.5 2885-2) Albumin (test code = 1751-7) 3.6 g/dL 4.0-5.0 L Globulin, Total (test code = 2.9 g/dL 1.5-4.5 41107-6) A/G Ratio (test code = 1759-0) 1.2 1.2-2.2 Bilirubin, Total (test code = 0.5 mg/dL 0.0-1.2 1975-2) Alkaline Phosphatase (test 103 IU/L 39-117 code = 6768-6) AST (SGOT) (test code = 20 IU/L 0-40 1920-8) ALT (SGPT) (test code = 30 IU/L 0-44 1742-6) [facility] Description: Lipid [id number] 03:19:00 Test Item Value Reference Range Interpretation Comments Cholesterol, Total (test code = 231 mg/dL 100-199 H 2092-3) Triglycerides (test code = 2571-8) 215 mg/dL 0-149 H HDL Cholesterol (test code = 34 mg/dL >39 L 2084-9) VLDL Cholesterol Renuka (test code = 43 mg/dL 5-40 H 16846-1) LDL Cholesterol Calc (test code = 154 mg/dL 0-99 H 66331-6) Comment: (test code = 80547-0) [facility] Description: Comp. Metabolic Panel (14)2019-11-10 03:19:00 Test Item Value Reference Range Interpretation Comments Glucose (test code = 2345-7) 439 mg/dL 65-99 H BUN (test code = 3094-0) 49 mg/dL 6-24 H Creatinine (test code = 2.17 mg/dL 0.76-1.27 H 2160-0) eGFR If NonAfricn Am (test 35 mL/min/1.73 >59 L code = 27672-3) eGFR If Africn Am (test code = 41 mL/min/1.73 >59 L 51314-0) BUN/Creatinine Ratio (test 23 9-20 H code = 3097-3) Sodium (test code = 2951-2) 137 mmol/L 134-144 Potassium (test code = 2823-3) 4.9 mmol/L 3.5-5.2 Chloride (test code = 2075-0) 93 mmol/L 96-106 L Carbon Dioxide, Total (test 29 mmol/L 20-29 code = 8-9) Calcium (test code = 11446-4) 9.5 mg/dL 8.7-10.2 Protein, Total (test code = 6.5 g/dL 6.0-8.5 2885-2) Albumin (test code = 1751-7) 3.6 g/dL 4.0-5.0 L Globulin, Total (test code = 2.9 g/dL 1.5-4.5 65096-5) A/G Ratio (test code = 1759-0) 1.2 1.2-2.2 Bilirubin, Total (test code = 0.5 mg/dL 0.0-1.2 1975-2) Alkaline Phosphatase (test 103 IU/L 39-117 code = 6768-6) AST (SGOT) (test code = 20 IU/L 0-40 1920-8) ALT (SGPT) (test code = 30 IU/L 0-44 1742-6) [facility] Lipid [id number] 03:19:00 Test Item Value Reference Range Interpretation Comments Cholesterol, Total (test code = 231 mg/dL 100-199 H 3-3) Triglycerides (test code = 2571-8) 215 mg/dL 0-149 H HDL Cholesterol (test code = 34 mg/dL >39 L 2085-9) VLDL Cholesterol Renuka (test code = 43 mg/dL 5-40 H 18413-3) LDL Cholesterol Calc (test code = 154 mg/dL 0-99 H 46056-6) Comment: (test code = 67451-8) [facility]: Comp[facility] Met[facility] Panel (14)2019-11-10 03:19:00 Test Item Value Reference Range Interpretation Comments Glucose (test code = 2345-7) 439 mg/dL 65-99 H BUN (test code = 3094-0) 49 mg/dL 6-24 H Creatinine (test code = 2.17 mg/dL 0.76-1.27 H 2160-0) eGFR If NonAfricn Am (test 35 mL/min/1.73 >59 L code = 01594-1) eGFR If Africn Am (test code = 41 mL/min/1.73 >59 L 33056-5) BUN/Creatinine Ratio (test 23 9-20 H code = 3097-3) Sodium (test code = 2951-2) 137 mmol/L 134-144 Potassium (test code = 2823-3) 4.9 mmol/L 3.5-5.2 Chloride (test code = 2075-0) 93 mmol/L 96-106 L Carbon Dioxide, Total (test 29 mmol/L 20-29 code = 8-9) Calcium (test code = 39812-5) 9.5 mg/dL 8.7-10.2 Protein, Total (test code = 6.5 g/dL 6.0-8.5 2885-2) Albumin (test code = 1751-7) 3.6 g/dL 4.0-5.0 L Globulin, Total (test code = 2.9 g/dL 1.5-4.5 05119-9) A/G Ratio (test code = 1759-0) 1.2 1.2-2.2 Bilirubin, Total (test code = 0.5 mg/dL 0.0-1.2 1974-2) Alkaline Phosphatase (test 103 IU/L 39-117 code = 6768-6) AST (SGOT) (test code = 20 IU/L 0-40 1920-8) ALT (SGPT) (test code = 30 IU/L 0-44 1742-6) [facility] Description: Lipid [id number] 03:19:00 Test Item Value Reference Range Interpretation Comments Cholesterol, Total (test code = 231 mg/dL 100-199 H 2092-3) Triglycerides (test code = 2571-8) 215 mg/dL 0-149 H HDL Cholesterol (test code = 34 mg/dL >39 L 2084-9) VLDL Cholesterol Renuka (test code = 43 mg/dL 5-40 H 31557-3) LDL Cholesterol Calc (test code = 154 mg/dL 0-99 H 17672-0) Comment: (test code = 45455-6) [facility] Description: Comp. Metabolic Panel ()2019-11-10 03:19:00 Test Item Value Reference Range Interpretation Comments Glucose (test code = 2345-7) 439 mg/dL 65-99 H BUN (test code = 3094-0) 49 mg/dL 6-24 H Creatinine (test code = 2.17 mg/dL 0.76-1.27 H 2160-0) eGFR If NonAfricn Am (test 35 mL/min/1.73 >59 L code = 32855-2) eGFR If Africn Am (test code = 41 mL/min/1.73 >59 L 91633-2) BUN/Creatinine Ratio (test 23 9-20 H code = 3097-3) Sodium (test code = 2951-2) 137 mmol/L 134-144 Potassium (test code = 2823-3) 4.9 mmol/L 3.5-5.2 Chloride (test code = 2075-0) 93 mmol/L 96-106 L Carbon Dioxide, Total (test 29 mmol/L 20-29 code = 2028-9) Calcium (test code = 17125-4) 9.5 mg/dL 8.7-10.2 Protein, Total (test code = 6.5 g/dL 6.0-8.5 2885-2) Albumin (test code = 1751-7) 3.6 g/dL 4.0-5.0 L Globulin, Total (test code = 2.9 g/dL 1.5-4.5 30269-5) A/G Ratio (test code = 1759-0) 1.2 1.2-2.2 Bilirubin, Total (test code = 0.5 mg/dL 0.0-1.2 1975-2) Alkaline Phosphatase (test 103 IU/L 39-117 code = 6768-6) AST (SGOT) (test code = 20 IU/L 0-40 1920-8) ALT (SGPT) (test code = 30 IU/L 0-44 1742-6) [facility] Description: Lipid [id number] 03:19:00 Test Item Value Reference Range Interpretation Comments Cholesterol, Total (test code = 231 mg/dL 100-199 H 2093-3) Triglycerides (test code = 2571-8) 215 mg/dL 0-149 H HDL Cholesterol (test code = 34 mg/dL >39 L 5-9) VLDL Cholesterol Renuka (test code = 43 mg/dL 5-40 H 90078-4) LDL Cholesterol Calc (test code = 154 mg/dL 0-99 H 88494-5) Comment: (test code = 97347-1) [facility] Description: Comp. Metabolic Panel (14)2019-11-10 03:19:00 Test Item Value Reference Range Interpretation Comments Glucose (test code = 2345-7) 439 mg/dL 65-99 H BUN (test code = 3094-0) 49 mg/dL 6-24 H Creatinine (test code = 2.17 mg/dL 0.76-1.27 H 2160-0) eGFR If NonAfricn Am (test 35 mL/min/1.73 >59 L code = 13196-5) eGFR If Africn Am (test code = 41 mL/min/1.73 >59 L 18565-2) BUN/Creatinine Ratio (test 23 9-20 H code = 3097-3) Sodium (test code = 2951-2) 137 mmol/L 134-144 Potassium (test code = 2823-3) 4.9 mmol/L 3.5-5.2 Chloride (test code = 2075-0) 93 mmol/L 96-106 L Carbon Dioxide, Total (test 29 mmol/L 20-29 code = 8-9) Calcium (test code = 53379-8) 9.5 mg/dL 8.7-10.2 Protein, Total (test code = 6.5 g/dL 6.0-8.5 2885-2) Albumin (test code = 1751-7) 3.6 g/dL 4.0-5.0 L Globulin, Total (test code = 2.9 g/dL 1.5-4.5 51344-4) A/G Ratio (test code = 1759-0) 1.2 1.2-2.2 Bilirubin, Total (test code = 0.5 mg/dL 0.0-1.2 1975-2) Alkaline Phosphatase (test 103 IU/L 39-117 code = 6768-6) AST (SGOT) (test code = 20 IU/L 0-40 1920-8) ALT (SGPT) (test code = 30 IU/L 0-44 1742-6) [facility] Description: Lipid [id number] 03:19:00 Test Item Value Reference Range Interpretation Comments Cholesterol, Total (test code = 231 mg/dL 100-199 H 3-3) Triglycerides (test code = 2571-8) 215 mg/dL 0-149 H HDL Cholesterol (test code = 34 mg/dL >39 L 2084-9) VLDL Cholesterol Renuka (test code = 43 mg/dL 5-40 H 32597-3) LDL Cholesterol Calc (test code = 154 mg/dL 0-99 H 65421-0) Comment: (test code = 10148-8) [facility] Description: Comp. Metabolic Panel (14)2019-11-10 03:19:00 Test Item Value Reference Range Interpretation Comments Glucose (test code = 2345-7) 439 mg/dL 65-99 H BUN (test code = 3094-0) 49 mg/dL 6-24 H Creatinine (test code = 2.17 mg/dL 0.76-1.27 H 2160-0) eGFR If NonAfricn Am (test 35 mL/min/1.73 >59 L code = 06562-3) eGFR If Africn Am (test code = 41 mL/min/1.73 >59 L 76411-6) BUN/Creatinine Ratio (test 23 9-20 H code = 3097-3) Sodium (test code = 2951-2) 137 mmol/L 134-144 Potassium (test code = 2823-3) 4.9 mmol/L 3.5-5.2 Chloride (test code = 2075-0) 93 mmol/L 96-106 L Carbon Dioxide, Total (test 29 mmol/L 20-29 code = 2027-9) Calcium (test code = 95217-8) 9.5 mg/dL 8.7-10.2 Protein, Total (test code = 6.5 g/dL 6.0-8.5 2885-2) Albumin (test code = 1751-7) 3.6 g/dL 4.0-5.0 L Globulin, Total (test code = 2.9 g/dL 1.5-4.5 39572-8) A/G Ratio (test code = 1759-0) 1.2 1.2-2.2 Bilirubin, Total (test code = 0.5 mg/dL 0.0-1.2 1974-2) Alkaline Phosphatase (test 103 IU/L 39-117 code = 6768-6) AST (SGOT) (test code = 20 IU/L 0-40 1920-8) ALT (SGPT) (test code = 30 IU/L 0-44 1742-6) [facility] Description: Lipid [id number] 03:19:00 Test Item Value Reference Range Interpretation Comments Cholesterol, Total (test code = 231 mg/dL 100-199 H 3-3) Triglycerides (test code = 2571-8) 215 mg/dL 0-149 H HDL Cholesterol (test code = 34 mg/dL >39 L 5-9) VLDL Cholesterol Renuka (test code = 43 mg/dL 5-40 H 85105-4) LDL Cholesterol Calc (test code = 154 mg/dL 0-99 H 12200-9) Comment: (test code = 72175-0) [facility] Description: Comp. Metabolic Panel ()2019-11-10 03:19:00 Test Item Value Reference Range Interpretation Comments Glucose (test code = 2345-7) 439 mg/dL 65-99 H BUN (test code = 3094-0) 49 mg/dL 6-24 H Creatinine (test code = 2.17 mg/dL 0.76-1.27 H 2160-0) eGFR If NonAfricn Am (test 35 mL/min/1.73 >59 L code = 01076-6) eGFR If Africn Am (test code = 41 mL/min/1.73 >59 L 89682-8) BUN/Creatinine Ratio (test 23 9-20 H code = 3097-3) Sodium (test code = 2951-2) 137 mmol/L 134-144 Potassium (test code = 2823-3) 4.9 mmol/L 3.5-5.2 Chloride (test code = 2075-0) 93 mmol/L 96-106 L Carbon Dioxide, Total (test 29 mmol/L 20-29 code = 2027-9) Calcium (test code = 92675-5) 9.5 mg/dL 8.7-10.2 Protein, Total (test code = 6.5 g/dL 6.0-8.5 2885-2) Albumin (test code = 1751-7) 3.6 g/dL 4.0-5.0 L Globulin, Total (test code = 2.9 g/dL 1.5-4.5 13267-4) A/G Ratio (test code = 1759-0) 1.2 1.2-2.2 Bilirubin, Total (test code = 0.5 mg/dL 0.0-1.2 1974-2) Alkaline Phosphatase (test 103 IU/L 39-117 code = 6768-6) AST (SGOT) (test code = 20 IU/L 0-40 1920-8) ALT (SGPT) (test code = 30 IU/L 0-44 1742-6) [facility] Description: Lipid [id number] 03:19:00 Test Item Value Reference Range Interpretation Comments Cholesterol, Total (test code = 231 mg/dL 100-199 H 2093-3) Triglycerides (test code = 2571-8) 215 mg/dL 0-149 H HDL Cholesterol (test code = 34 mg/dL >39 L 5-9) VLDL Cholesterol Renuka (test code = 43 mg/dL 5-40 H 60115-6) LDL Cholesterol Calc (test code = 154 mg/dL 0-99 H 99588-4) Comment: (test code = 71024-8) [facility] Description: Comp. Metabolic Panel (2019-11-10 03:19:00 Test Item Value Reference Range Interpretation Comments Glucose (test code = 2345-7) 439 mg/dL 65-99 H BUN (test code = 3094-0) 49 mg/dL 6-24 H Creatinine (test code = 2.17 mg/dL 0.76-1.27 H 2160-0) eGFR If NonAfricn Am (test 35 mL/min/1.73 >59 L code = 94017-2) eGFR If Africn Am (test code = 41 mL/min/1.73 >59 L 62764-4) BUN/Creatinine Ratio (test 23 9-20 H code = 3097-3) Sodium (test code = 2951-2) 137 mmol/L 134-144 Potassium (test code = 2823-3) 4.9 mmol/L 3.5-5.2 Chloride (test code = 2075-0) 93 mmol/L 96-106 L Carbon Dioxide, Total (test 29 mmol/L 20-29 code = 8-9) Calcium (test code = 62073-7) 9.5 mg/dL 8.7-10.2 Protein, Total (test code = 6.5 g/dL 6.0-8.5 2885-2) Albumin (test code = 1751-7) 3.6 g/dL 4.0-5.0 L Globulin, Total (test code = 2.9 g/dL 1.5-4.5 61280-4) A/G Ratio (test code = 1759-0) 1.2 1.2-2.2 Bilirubin, Total (test code = 0.5 mg/dL 0.0-1.2 1975-2) Alkaline Phosphatase (test 103 IU/L 39-117 code = 6768-6) AST (SGOT) (test code = 20 IU/L 0-40 1920-8) ALT (SGPT) (test code = 30 IU/L 0-44 1742-6) [facility] Description: Lipid [id number] 03:19:00 Test Item Value Reference Range Interpretation Comments Cholesterol, Total (test code = 231 mg/dL 100-199 H 2093-3) Triglycerides (test code = 2571-8) 215 mg/dL 0-149 H HDL Cholesterol (test code = 34 mg/dL >39 L 5-9) VLDL Cholesterol Renuka (test code = 43 mg/dL 5-40 H 29181-1) LDL Cholesterol Calc (test code = 154 mg/dL 0-99 H 22932-1) Comment: (test code = 69264-0) [facility] Description: Comp. Metabolic Panel (14)2019-11-10 03:19:00 Test Item Value Reference Range Interpretation Comments Glucose (test code = 2345-7) 439 mg/dL 65-99 H BUN (test code = 3094-0) 49 mg/dL 6-24 H Creatinine (test code = 2.17 mg/dL 0.76-1.27 H 2160-0) eGFR If NonAfricn Am (test 35 mL/min/1.73 >59 L code = 03170-3) eGFR If Africn Am (test code = 41 mL/min/1.73 >59 L 80797-9) BUN/Creatinine Ratio (test 23 9-20 H code = 3097-3) Sodium (test code = 2951-2) 137 mmol/L 134-144 Potassium (test code = 2823-3) 4.9 mmol/L 3.5-5.2 Chloride (test code = 2075-0) 93 mmol/L 96-106 L Carbon Dioxide, Total (test 29 mmol/L 20-29 code = 8-9) Calcium (test code = 45208-1) 9.5 mg/dL 8.7-10.2 Protein, Total (test code = 6.5 g/dL 6.0-8.5 2885-2) Albumin (test code = 1751-7) 3.6 g/dL 4.0-5.0 L Globulin, Total (test code = 2.9 g/dL 1.5-4.5 07438-1) A/G Ratio (test code = 1759-0) 1.2 1.2-2.2 Bilirubin, Total (test code = 0.5 mg/dL 0.0-1.2 1975-2) Alkaline Phosphatase (test 103 IU/L 39-117 code = 6768-6) AST (SGOT) (test code = 20 IU/L 0-40 1920-8) ALT (SGPT) (test code = 30 IU/L 0-44 1742-6) [facility] Description: Lipid [id number] 03:19:00 Test Item Value Reference Range Interpretation Comments Cholesterol, Total (test code = 231 mg/dL 100-199 H 3-3) Triglycerides (test code = 2571-8) 215 mg/dL 0-149 H HDL Cholesterol (test code = 34 mg/dL >39 L 2084-9) VLDL Cholesterol Renuka (test code = 43 mg/dL 5-40 H 73936-8) LDL Cholesterol Calc (test code = 154 mg/dL 0-99 H 19282-8) Comment: (test code = 43532-2) [facility] Description: Comp. Metabolic Panel (14)2019-11-10 03:19:00 Test Item Value Reference Range Interpretation Comments Glucose (test code = 2345-7) 439 mg/dL 65-99 H BUN (test code = 3094-0) 49 mg/dL 6-24 H Creatinine (test code = 2.17 mg/dL 0.76-1.27 H 2160-0) eGFR If NonAfricn Am (test 35 mL/min/1.73 >59 L code = 32971-3) eGFR If Africn Am (test code = 41 mL/min/1.73 >59 L 32370-5) BUN/Creatinine Ratio (test 23 9-20 H code = 3097-3) Sodium (test code = 2951-2) 137 mmol/L 134-144 Potassium (test code = 2823-3) 4.9 mmol/L 3.5-5.2 Chloride (test code = 2075-0) 93 mmol/L 96-106 L Carbon Dioxide, Total (test 29 mmol/L 20-29 code = 2028-9) Calcium (test code = 44109-5) 9.5 mg/dL 8.7-10.2 Protein, Total (test code = 6.5 g/dL 6.0-8.5 2885-2) Albumin (test code = 1751-7) 3.6 g/dL 4.0-5.0 L Globulin, Total (test code = 2.9 g/dL 1.5-4.5 50387-8) A/G Ratio (test code = 1759-0) 1.2 1.2-2.2 Bilirubin, Total (test code = 0.5 mg/dL 0.0-1.2 1974-2) Alkaline Phosphatase (test 103 IU/L 39-117 code = 6768-6) AST (SGOT) (test code = 20 IU/L 0-40 1920-8) ALT (SGPT) (test code = 30 IU/L 0-44 1742-6) [facility]: Lipid [id number] 03:19:00 Test Item Value Reference Range Interpretation Comments Cholesterol, Total (test code = 231 mg/dL 100-199 H 2092-3) Triglycerides (test code = 2571-8) 215 mg/dL 0-149 H HDL Cholesterol (test code = 34 mg/dL >39 L 2084-9) VLDL Cholesterol Renuka (test code = 43 mg/dL 5-40 H 95421-0) LDL Cholesterol Calc (test code = 154 mg/dL 0-99 H 25685-8) Comment: (test code = 09208-1) [facility]: Comp. Met[facility] ()2019-11-10 03:19:00 Test Item Value Reference Range Interpretation Comments Glucose (test code = 2345-7) 439 mg/dL 65-99 H BUN (test code = 3094-0) 49 mg/dL 6-24 H Creatinine (test code = 2.17 mg/dL 0.76-1.27 H 2160-0) eGFR If NonAfricn Am (test 35 mL/min/1.73 >59 L code = 80788-5) eGFR If Africn Am (test code = 41 mL/min/1.73 >59 L 33652-6) BUN/Creatinine Ratio (test 23 9-20 H code = 3097-3) Sodium (test code = 2951-2) 137 mmol/L 134-144 Potassium (test code = 2823-3) 4.9 mmol/L 3.5-5.2 Chloride (test code = 2075-0) 93 mmol/L 96-106 L Carbon Dioxide, Total (test 29 mmol/L 20-29 code = 8-9) Calcium (test code = 18298-6) 9.5 mg/dL 8.7-10.2 Protein, Total (test code = 6.5 g/dL 6.0-8.5 2885-2) Albumin (test code = 1751-7) 3.6 g/dL 4.0-5.0 L Globulin, Total (test code = 2.9 g/dL 1.5-4.5 43351-4) A/G Ratio (test code = 1759-0) 1.2 1.2-2.2 Bilirubin, Total (test code = 0.5 mg/dL 0.0-1.2 1975-2) Alkaline Phosphatase (test 103 IU/L 39-117 code = 6768-6) AST (SGOT) (test code = 20 IU/L 0-40 1920-8) ALT (SGPT) (test code = 30 IU/L 0-44 1742-6) [facility] Description: Lipid [id number] 03:19:00 Test Item Value Reference Range Interpretation Comments Cholesterol, Total (test code = 231 mg/dL 100-199 H 2092-3) Triglycerides (test code = 2571-8) 215 mg/dL 0-149 H HDL Cholesterol (test code = 34 mg/dL >39 L 2084-9) VLDL Cholesterol Renuka (test code = 43 mg/dL 5-40 H 64059-7) LDL Cholesterol Calc (test code = 154 mg/dL 0-99 H 71108-5) Comment: (test code = 89492-8) [facility] Description: Comp. Metabolic Panel (14)2019-11-10 03:19:00 Test Item Value Reference Range Interpretation Comments Glucose (test code = 2345-7) 439 mg/dL 65-99 H BUN (test code = 3094-0) 49 mg/dL 6-24 H Creatinine (test code = 2.17 mg/dL 0.76-1.27 H 2160-0) eGFR If NonAfricn Am (test 35 mL/min/1.73 >59 L code = 31160-0) eGFR If Africn Am (test code = 41 mL/min/1.73 >59 L 76305-1) BUN/Creatinine Ratio (test 23 9-20 H code = 3097-3) Sodium (test code = 2951-2) 137 mmol/L 134-144 Potassium (test code = 2823-3) 4.9 mmol/L 3.5-5.2 Chloride (test code = 2075-0) 93 mmol/L 96-106 L Carbon Dioxide, Total (test 29 mmol/L 20-29 code = 8-9) Calcium (test code = 81872-1) 9.5 mg/dL 8.7-10.2 Protein, Total (test code = 6.5 g/dL 6.0-8.5 2885-2) Albumin (test code = 1751-7) 3.6 g/dL 4.0-5.0 L Globulin, Total (test code = 2.9 g/dL 1.5-4.5 75696-0) A/G Ratio (test code = 1759-0) 1.2 1.2-2.2 Bilirubin, Total (test code = 0.5 mg/dL 0.0-1.2 1975-2) Alkaline Phosphatase (test 103 IU/L 39-117 code = 6768-6) AST (SGOT) (test code = 20 IU/L 0-40 1920-8) ALT (SGPT) (test code = 30 IU/L 0-44 1742-6) [facility] Description: Lipid [id number] 03:19:00 Test Item Value Reference Range Interpretation Comments Cholesterol, Total (test code = 231 mg/dL 100-199 H 3-3) Triglycerides (test code = 2571-8) 215 mg/dL 0-149 H HDL Cholesterol (test code = 34 mg/dL >39 L 5-9) VLDL Cholesterol Renuka (test code = 43 mg/dL 5-40 H 80302-5) LDL Cholesterol Calc (test code = 154 mg/dL 0-99 H 86536-3) Comment: (test code = 38810-1) [facility] Description: Comp. Metabolic Panel ()2019-11-10 03:19:00 Test Item Value Reference Range Interpretation Comments Glucose (test code = 2345-7) 439 mg/dL 65-99 H BUN (test code = 3094-0) 49 mg/dL 6-24 H Creatinine (test code = 2.17 mg/dL 0.76-1.27 H 2160-0) eGFR If NonAfricn Am (test 35 mL/min/1.73 >59 L code = 90799-3) eGFR If Africn Am (test code = 41 mL/min/1.73 >59 L 29442-6) BUN/Creatinine Ratio (test 23 9-20 H code = 3097-3) Sodium (test code = 2951-2) 137 mmol/L 134-144 Potassium (test code = 2823-3) 4.9 mmol/L 3.5-5.2 Chloride (test code = 2075-0) 93 mmol/L 96-106 L Carbon Dioxide, Total (test 29 mmol/L 20-29 code = 8-9) Calcium (test code = 41538-5) 9.5 mg/dL 8.7-10.2 Protein, Total (test code = 6.5 g/dL 6.0-8.5 2885-2) Albumin (test code = 1751-7) 3.6 g/dL 4.0-5.0 L Globulin, Total (test code = 2.9 g/dL 1.5-4.5 63624-9) A/G Ratio (test code = 1759-0) 1.2 1.2-2.2 Bilirubin, Total (test code = 0.5 mg/dL 0.0-1.2 1975-2) Alkaline Phosphatase (test 103 IU/L 39-117 code = 6768-6) AST (SGOT) (test code = 20 IU/L 0-40 1920-8) ALT (SGPT) (test code = 30 IU/L 0-44 1742-6) [facility] Description: Comp. Metabolic Panel ()2019-11-10 03:19:00 Test Item Value Reference Range Interpretation Comments Glucose (test code = 2345-7) 439 mg/dL 65-99 H BUN (test code = 3094-0) 49 mg/dL 6-24 H Creatinine (test code = 2.17 mg/dL 0.76-1.27 H 2160-0) eGFR If NonAfricn Am (test 35 mL/min/1.73 >59 L code = 12605-9) eGFR If Africn Am (test code = 41 mL/min/1.73 >59 L 35204-4) BUN/Creatinine Ratio (test 23 9-20 H code = 3097-3) Sodium (test code = 2951-2) 137 mmol/L 134-144 Potassium (test code = 2823-3) 4.9 mmol/L 3.5-5.2 Chloride (test code = 2075-0) 93 mmol/L 96-106 L Carbon Dioxide, Total (test 29 mmol/L 20-29 code = 8-9) Calcium (test code = 12537-6) 9.5 mg/dL 8.7-10.2 Protein, Total (test code = 6.5 g/dL 6.0-8.5 2885-2) Albumin (test code = 1751-7) 3.6 g/dL 4.0-5.0 L Globulin, Total (test code = 2.9 g/dL 1.5-4.5 65493-7) A/G Ratio (test code = 1759-0) 1.2 1.2-2.2 Bilirubin, Total (test code = 0.5 mg/dL 0.0-1.2 1975-2) Alkaline Phosphatase (test 103 IU/L 39-117 code = 6768-6) AST (SGOT) (test code = 20 IU/L 0-40 1920-8) ALT (SGPT) (test code = 30 IU/L 0-44 1742-6) [facility] Description: Lipid [id number] 03:19:00 Test Item Value Reference Range Interpretation Comments Cholesterol, Total (test code = 231 mg/dL 100-199 H 3-3) Triglycerides (test code = 2571-8) 215 mg/dL 0-149 H HDL Cholesterol (test code = 34 mg/dL >39 L 2085-9) VLDL Cholesterol Renuka (test code = 43 mg/dL 5-40 H 95575-5) LDL Cholesterol Calc (test code = 154 mg/dL 0-99 H 84293-1) Comment: (test code = 39025-0) [employer] Description: Lipid [id number] 03:19:00 Test Item Value Reference Range Interpretation Comments Cholesterol, Total (test code = 231 mg/dL 100-199 H 3-3) Triglycerides (test code = 2571-8) 215 mg/dL 0-149 H HDL Cholesterol (test code = 34 mg/dL >39 L 5-9) VLDL Cholesterol Renuka (test code = 43 mg/dL 5-40 H 57744-3) LDL Cholesterol Calc (test code = 154 mg/dL 0-99 H 91425-2) Comment: (test code = 74930-0) [employer] Description: Comp. Metabolic Panel ()2019-11-10 03:19:00 Test Item Value Reference Range Interpretation Comments Glucose (test code = 2345-7) 439 mg/dL 65-99 H BUN (test code = 3094-0) 49 mg/dL 6-24 H Creatinine (test code = 2.17 mg/dL 0.76-1.27 H 2160-0) eGFR If NonAfricn Am (test 35 mL/min/1.73 >59 L code = 84642-7) eGFR If Africn Am (test code = 41 mL/min/1.73 >59 L 68998-7) BUN/Creatinine Ratio (test 23 9-20 H code = 3097-3) Sodium (test code = 2951-2) 137 mmol/L 134-144 Potassium (test code = 2823-3) 4.9 mmol/L 3.5-5.2 Chloride (test code = 2075-0) 93 mmol/L 96-106 L Carbon Dioxide, Total (test 29 mmol/L 20-29 code = 2027-9) Calcium (test code = 34162-2) 9.5 mg/dL 8.7-10.2 Protein, Total (test code = 6.5 g/dL 6.0-8.5 2885-2) Albumin (test code = 1751-7) 3.6 g/dL 4.0-5.0 L Globulin, Total (test code = 2.9 g/dL 1.5-4.5 94098-9) A/G Ratio (test code = 1759-0) 1.2 1.2-2.2 Bilirubin, Total (test code = 0.5 mg/dL 0.0-1.2 1975-2) Alkaline Phosphatase (test 103 IU/L 39-117 code = 6768-6) AST (SGOT) (test code = 20 IU/L 0-40 1920-8) ALT (SGPT) (test code = 30 IU/L 0-44 1742-6) [facility]id [id number] 03:19:00 Test Item Value Reference Range Interpretation Comments Cholesterol, Total (test code = 231 mg/dL 100-199 H 2093-3) Triglycerides (test code = 2571-8) 215 mg/dL 0-149 H HDL Cholesterol (test code = 34 mg/dL >39 L 2085-9) VLDL Cholesterol Renuka (test code = 43 mg/dL 5-40 H 68745-9) LDL Cholesterol Calc (test code = 154 mg/dL 0-99 H 90828-1) Comment: (test code = 87244-8) [facility] Description: Comp. Metabolic Panel (14)2019-11-10 03:19:00 Test Item Value Reference Range Interpretation Comments Glucose (test code = 2345-7) 439 mg/dL 65-99 H BUN (test code = 3094-0) 49 mg/dL 6-24 H Creatinine (test code = 2.17 mg/dL 0.76-1.27 H 2160-0) eGFR If NonAfricn Am (test 35 mL/min/1.73 >59 L code = 74289-6) eGFR If Africn Am (test code = 41 mL/min/1.73 >59 L 11905-8) BUN/Creatinine Ratio (test 23 9-20 H code = 3097-3) Sodium (test code = 2951-2) 137 mmol/L 134-144 Potassium (test code = 2823-3) 4.9 mmol/L 3.5-5.2 Chloride (test code = 2075-0) 93 mmol/L 96-106 L Carbon Dioxide, Total (test 29 mmol/L 20-29 code = 8-9) Calcium (test code = 77996-6) 9.5 mg/dL 8.7-10.2 Protein, Total (test code = 6.5 g/dL 6.0-8.5 2885-2) Albumin (test code = 1751-7) 3.6 g/dL 4.0-5.0 L Globulin, Total (test code = 2.9 g/dL 1.5-4.5 03367-3) A/G Ratio (test code = 1759-0) 1.2 1.2-2.2 Bilirubin, Total (test code = 0.5 mg/dL 0.0-1.2 1974-2) Alkaline Phosphatase (test 103 IU/L 39-117 code = 6768-6) AST (SGOT) (test code = 20 IU/L 0-40 1920-8) ALT (SGPT) (test code = 30 IU/L 0-44 1742-6) [facility] Description: Lipid [id number] 03:19:00 Test Item Value Reference Range Interpretation Comments Cholesterol, Total (test code = 231 mg/dL 100-199 H 2092-3) Triglycerides (test code = 2571-8) 215 mg/dL 0-149 H HDL Cholesterol (test code = 34 mg/dL >39 L 2084-9) VLDL Cholesterol Renuka (test code = 43 mg/dL 5-40 H 99312-1) LDL Cholesterol Calc (test code = 154 mg/dL 0-99 H 00799-9) Comment: (test code = 86378-5) [facility] Description: Comp. Metabolic Panel (2019-11-10 03:19:00 Test Item Value Reference Range Interpretation Comments Glucose (test code = 2345-7) 439 mg/dL 65-99 H BUN (test code = 3094-0) 49 mg/dL 6-24 H Creatinine (test code = 2.17 mg/dL 0.76-1.27 H 2160-0) eGFR If NonAfricn Am (test 35 mL/min/1.73 >59 L code = 58441-0) eGFR If Africn Am (test code = 41 mL/min/1.73 >59 L 33062-8) BUN/Creatinine Ratio (test 23 9-20 H code = 3097-3) Sodium (test code = 2951-2) 137 mmol/L 134-144 Potassium (test code = 2823-3) 4.9 mmol/L 3.5-5.2 Chloride (test code = 2075-0) 93 mmol/L 96-106 L Carbon Dioxide, Total (test 29 mmol/L 20-29 code = 2028-9) Calcium (test code = 63525-4) 9.5 mg/dL 8.7-10.2 Protein, Total (test code = 6.5 g/dL 6.0-8.5 2885-2) Albumin (test code = 1751-7) 3.6 g/dL 4.0-5.0 L Globulin, Total (test code = 2.9 g/dL 1.5-4.5 31644-8) A/G Ratio (test code = 1759-0) 1.2 1.2-2.2 Bilirubin, Total (test code = 0.5 mg/dL 0.0-1.2 1975-2) Alkaline Phosphatase (test 103 IU/L 39-117 code = 6768-6) AST (SGOT) (test code = 20 IU/L 0-40 1920-8) ALT (SGPT) (test code = 30 IU/L 0-44 1742-6) [facility] Description: Lipid [id number] 03:19:00 Test Item Value Reference Range Interpretation Comments Cholesterol, Total (test code = 231 mg/dL 100-199 H 2093-3) Triglycerides (test code = 2571-8) 215 mg/dL 0-149 H HDL Cholesterol (test code = 34 mg/dL >39 L 5-9) VLDL Cholesterol Renuka (test code = 43 mg/dL 5-40 H 59816-5) LDL Cholesterol Calc (test code = 154 mg/dL 0-99 H 29887-7) Comment: (test code = 71728-1) [facility] Description: Comp. Metabolic Panel (14)2019-11-10 03:19:00 Test Item Value Reference Range Interpretation Comments Glucose (test code = 2345-7) 439 mg/dL 65-99 H BUN (test code = 3094-0) 49 mg/dL 6-24 H Creatinine (test code = 2.17 mg/dL 0.76-1.27 H 2160-0) eGFR If NonAfricn Am (test 35 mL/min/1.73 >59 L code = 25767-8) eGFR If Africn Am (test code = 41 mL/min/1.73 >59 L 49316-5) BUN/Creatinine Ratio (test 23 9-20 H code = 3097-3) Sodium (test code = 2951-2) 137 mmol/L 134-144 Potassium (test code = 2823-3) 4.9 mmol/L 3.5-5.2 Chloride (test code = 2075-0) 93 mmol/L 96-106 L Carbon Dioxide, Total (test 29 mmol/L 20-29 code = 8-9) Calcium (test code = 85455-2) 9.5 mg/dL 8.7-10.2 Protein, Total (test code = 6.5 g/dL 6.0-8.5 2885-2) Albumin (test code = 1751-7) 3.6 g/dL 4.0-5.0 L Globulin, Total (test code = 2.9 g/dL 1.5-4.5 71482-9) A/G Ratio (test code = 1759-0) 1.2 1.2-2.2 Bilirubin, Total (test code = 0.5 mg/dL 0.0-1.2 1975-2) Alkaline Phosphatase (test 103 IU/L 39-117 code = 6768-6) AST (SGOT) (test code = 20 IU/L 0-40 1920-8) ALT (SGPT) (test code = 30 IU/L 0-44 1742-6) [facility] Description: Lipid [id number] 03:19:00 Test Item Value Reference Range Interpretation Comments Cholesterol, Total (test code = 231 mg/dL 100-199 H 3-3) Triglycerides (test code = 2571-8) 215 mg/dL 0-149 H HDL Cholesterol (test code = 34 mg/dL >39 L 2084-9) VLDL Cholesterol Renuka (test code = 43 mg/dL 5-40 H 57884-6) LDL Cholesterol Calc (test code = 154 mg/dL 0-99 H 87296-3) Comment: (test code = 70647-9) [facility] Description: Comp. Metabolic Panel (14)2019-11-10 03:19:00 Test Item Value Reference Range Interpretation Comments Glucose (test code = 2345-7) 439 mg/dL 65-99 H BUN (test code = 3094-0) 49 mg/dL 6-24 H Creatinine (test code = 2.17 mg/dL 0.76-1.27 H 2160-0) eGFR If NonAfricn Am (test 35 mL/min/1.73 >59 L code = 45212-6) eGFR If Africn Am (test code = 41 mL/min/1.73 >59 L 82971-0) BUN/Creatinine Ratio (test 23 9-20 H code = 3097-3) Sodium (test code = 2951-2) 137 mmol/L 134-144 Potassium (test code = 2823-3) 4.9 mmol/L 3.5-5.2 Chloride (test code = 2075-0) 93 mmol/L 96-106 L Carbon Dioxide, Total (test 29 mmol/L 20-29 code = 2027-9) Calcium (test code = 19702-6) 9.5 mg/dL 8.7-10.2 Protein, Total (test code = 6.5 g/dL 6.0-8.5 2885-2) Albumin (test code = 1751-7) 3.6 g/dL 4.0-5.0 L Globulin, Total (test code = 2.9 g/dL 1.5-4.5 59520-5) A/G Ratio (test code = 1759-0) 1.2 1.2-2.2 Bilirubin, Total (test code = 0.5 mg/dL 0.0-1.2 1974-2) Alkaline Phosphatase (test 103 IU/L 39-117 code = 6768-6) AST (SGOT) (test code = 20 IU/L 0-40 1920-8) ALT (SGPT) (test code = 30 IU/L 0-44 1742-6) [employer] Description: Lipid [id number] 03:19:00 Test Item Value Reference Range Interpretation Comments Cholesterol, Total (test code = 231 mg/dL 100-199 H 3-3) Triglycerides (test code = 2571-8) 215 mg/dL 0-149 H HDL Cholesterol (test code = 34 mg/dL >39 L 5-9) VLDL Cholesterol Renuka (test code = 43 mg/dL 5-40 H 02419-5) LDL Cholesterol Calc (test code = 154 mg/dL 0-99 H 17613-8) Comment: (test code = 47940-0) [facility] Description: Comp. Metabolic Panel ()2019-11-10 03:19:00 Test Item Value Reference Range Interpretation Comments Glucose (test code = 2345-7) 439 mg/dL 65-99 H BUN (test code = 3094-0) 49 mg/dL 6-24 H Creatinine (test code = 2.17 mg/dL 0.76-1.27 H 2160-0) eGFR If NonAfricn Am (test 35 mL/min/1.73 >59 L code = 45605-6) eGFR If Africn Am (test code = 41 mL/min/1.73 >59 L 47198-1) BUN/Creatinine Ratio (test 23 9-20 H code = 3097-3) Sodium (test code = 2951-2) 137 mmol/L 134-144 Potassium (test code = 2823-3) 4.9 mmol/L 3.5-5.2 Chloride (test code = 2075-0) 93 mmol/L 96-106 L Carbon Dioxide, Total (test 29 mmol/L 20-29 code = 2027-9) Calcium (test code = 76456-4) 9.5 mg/dL 8.7-10.2 Protein, Total (test code = 6.5 g/dL 6.0-8.5 2885-2) Albumin (test code = 1751-7) 3.6 g/dL 4.0-5.0 L Globulin, Total (test code = 2.9 g/dL 1.5-4.5 01024-3) A/G Ratio (test code = 1759-0) 1.2 1.2-2.2 Bilirubin, Total (test code = 0.5 mg/dL 0.0-1.2 1975-2) Alkaline Phosphatase (test 103 IU/L 39-117 code = 6768-6) AST (SGOT) (test code = 20 IU/L 0-40 1920-8) ALT (SGPT) (test code = 30 IU/L 0-44 1742-6) [facility] Description: Lipid [id number] 03:19:00 Test Item Value Reference Range Interpretation Comments Cholesterol, Total (test code = 231 mg/dL 100-199 H 2093-3) Triglycerides (test code = 2571-8) 215 mg/dL 0-149 H HDL Cholesterol (test code = 34 mg/dL >39 L 2085-9) VLDL Cholesterol Renuka (test code = 43 mg/dL 5-40 H 06101-0) LDL Cholesterol Calc (test code = 154 mg/dL 0-99 H 21460-5) Comment: (test code = 48156-6) [facility] NON [id number] 23:44:00Reason for exam:- >SHORTNESS OF BREATHReason for [...] structures are grossly unremarkable. Signed: [facility] Verified Date/Time: 07/15/2019 23:44:04 B-TYPE NATRIURETIC FACTOR (BNP)2019-07-15 23:19:00 Test Item Value Reference Range Interpretation Comments B-TYPE NATRIURETIC PEPTIDE (BEAKER) 482 pg/mL 0-100 H (test code = 700) Housekeeping/Laundry Supervisor ID - LACIE DE LA VEGA [id number] 23:17:00 Test Item Value Reference Range Interpretation [...] failure, acidosis, acute neurological disease, and persistent tachyarrhythmia.Housekeeping/Laundry Supervisor ID - LACIE BCOMPREHENSIVE METABOLIC [id number] 23:11:00 Test Item Value Reference Range Interpretation [...] S NOT APPLICABLE FOR DIALYSIS PATIEN TS. Housekeeping/Laundry Supervisor ID - LACIE BCBC W/PLT COUNT & AUTO [id number] 22:51:00 Test Item Value Reference Range Interpretation [...] = 2801) Panel Description: Hemoglobin A1c/Hemoglobin.total in [id number] 09:26:00 Test Item Value Reference Range Interpretation [...]

P erforme d by:
[facility] ([place])

[facility] Description: Hemoglobin A1c/Hemoglobin.total in Blood 2019-07-04 09:26:00 Test Item Value Reference Range Interpretation Comments Hemoglobin A1c (test code 10.1 % 4.8-5.6 H = 4548-4) . Prediabetes: 5. 7 - 6.4 Diabete s: >6.4 Glycemi c control for niall lts with diabetes: <7.0

P erforme d by:
[facility] ([place])

[facility] Description: Hemoglobin A1c/Hemoglobin.total [...]

P erforme d by:
[facility] ([place])

[facility] Description: Hemoglobin A1c/Hemoglobin.total in Blood 2019-07-04 09:26:00 Test Item Value Reference Range Interpretation Comments Hemoglobin A1c (test code 10.1 % 4.8-5.6 H = 4548-4) . Prediabetes: 5. 7 - 6.4 Diabete s: >6.4 Glycemi c control for niall lts with diabetes: <7.0

P erforme d by:
[facility] ([place])

[facility] Description: Hemoglobin A1c/Hemoglobin.total [...]

P erforme d by:
[facility] ([place])

[facility] Description: Hemoglobin A1c/Hemoglobin.total in Blood 2019-07-04 09:26:00 Test Item Value Reference Range Interpretation Comments Hemoglobin A1c (test code 10.1 % 4.8-5.6 H = 4548-4) . Prediabetes: 5. 7 - 6.4 Diabete s: >6.4 Glycemi c control for niall lts with diabetes: <7.0

P erforme d by:
[facility] ([place])

[facility] Description: Hemoglobin A1c/Hemoglobin.total [...]

P erforme d by:
[facility] ([place])

[facility] Description: Hemoglobin A1c/Hemoglobin.total in Blood 2019-07-04 09:26:00 Test Item Value Reference Range Interpretation Comments Hemoglobin A1c (test code 10.1 % 4.8-5.6 H = 4548-4) . Prediabetes: 5. 7 - 6.4 Diabete s: >6.4 Glycemi c control for niall lts with diabetes: <7.0

P erforme d by:
[facility] ([place])

[facility] Description: Hemoglobin A1c/Hemoglobin.total [...]

P erforme d by:
[facility] ([place])

[facility] Description: Hemoglobin A1c/Hemoglobin.total in Blood 2019-07-04 09:26:00 Test Item Value Reference Range Interpretation Comments Hemoglobin A1c (test code 10.1 % 4.8-5.6 H = 4548-4) . Prediabetes: 5. 7 - 6.4 Diabete s: >6.4 Glycemi c control for niall lts with diabetes: <7.0

P erforme d by:
[facility] ([place])

[facility] Description: Hemoglobin A1c/Hemoglobin.total [...]

P erforme d by:
[facility] ([place])

[facility] A1c/Hemoglobin.total in Blood 2019-07-04 09:26:00 Test Item Value Reference Range Interpretation Comments Hemoglobin A1c (test code 10.1 % 4.8-5.6 H = 4548-4) . Prediabetes: 5. 7 - 6.4 Diabete s: >6.4 Glycemi c control for niall lts with diabetes: <7.0

P erforme d by:
[facility] ([place])

[facility]: Hemoglobin A1c/Hemoglobin.total in Blood 2019-07-04 09:26:00 Test Item Value Reference Range Interpretation Comments Hemoglobin A1c (test code 10.1 % 4.8-5.6 H = 4548-4) . Prediabetes: 5. 7 - 6.4 Diabete s: >6.4 Glycemi c control for niall lts with diabetes: <7.0

P erforme d by:
[facility] [place] ([place])

[facility] Lipid [id number] 01:17:00 Test Item Value Reference Range Interpretation Comments Cholesterol, Total (test code = 241 mg/dL 100-199 H 2093-3) Triglycerides (test code = 2571-8) 57 mg/dL 0-149 HDL Cholesterol (test code = 37 mg/dL >39 L 2085-9) VLDL Cholesterol Renuka (test code = 11 mg/dL 5-40 32905-5) LDL Cholesterol Calc (test code = 193 mg/dL 0-99 H 06204-9) Comment: (test code = 24272-8) [facility] Description: Lipid [id number] 01:17:00 Test Item Value Reference Range Interpretation Comments Cholesterol, Total (test code = 241 mg/dL 100-199 H 2093-3) Triglycerides (test code = 2571-8) 57 mg/dL 0-149 HDL Cholesterol (test code = 37 mg/dL >39 L 2085-9) VLDL Cholesterol Renuka (test code = 11 mg/dL 5-40 50885-1) LDL Cholesterol Calc (test code = 193 mg/dL 0-99 H 19823-4) Comment: (test code = 63231-6) [facility] Description: Lipid [id number] 01:17:00 Test Item Value Reference Range Interpretation Comments Cholesterol, Total (test code = 241 mg/dL 100-199 H 2093-3) Triglycerides (test code = 2571-8) 57 mg/dL 0-149 HDL Cholesterol (test code = 37 mg/dL >39 L 2085-9) VLDL Cholesterol Renuka (test code = 11 mg/dL 5-40 58467-2) LDL Cholesterol Calc (test code = 193 mg/dL 0-99 H 30138-1) Comment: (test code = 47717-1) [facility] Description: Lipid [id number] 01:17:00 Test Item Value Reference Range Interpretation Comments Cholesterol, Total (test code = 241 mg/dL 100-199 H 2093-3) Triglycerides (test code = 2571-8) 57 mg/dL 0-149 HDL Cholesterol (test code = 37 mg/dL >39 L 2085-9) VLDL Cholesterol Renuka (test code = 11 mg/dL 5-40 50069-0) LDL Cholesterol Calc (test code = 193 mg/dL 0-99 H 01452-1) Comment: (test code = 09794-0) [facility] Description: Lipid [id number] 01:17:00 Test Item Value Reference Range Interpretation Comments Cholesterol, Total (test code = 241 mg/dL 100-199 H 2093-3) Triglycerides (test code = 2571-8) 57 mg/dL 0-149 HDL Cholesterol (test code = 37 mg/dL >39 L 2085-9) VLDL Cholesterol Renuka (test code = 11 mg/dL 5-40 43160-6) LDL Cholesterol Calc (test code = 193 mg/dL 0-99 H 36759-9) Comment: (test code = 84619-0) [facility] Description: Lipid [id number] 01:17:00 Test Item Value Reference Range Interpretation Comments Cholesterol, Total (test code = 241 mg/dL 100-199 H 2093-3) Triglycerides (test code = 2571-8) 57 mg/dL 0-149 HDL Cholesterol (test code = 37 mg/dL >39 L 2085-9) VLDL Cholesterol Renuka (test code = 11 mg/dL 5-40 58618-5) LDL Cholesterol Calc (test code = 193 mg/dL 0-99 H 70723-2) Comment: (test code = 54549-1) [facility] Description: Lipid [id number] 01:17:00 Test Item Value Reference Range Interpretation Comments Cholesterol, Total (test code = 241 mg/dL 100-199 H 2093-3) Triglycerides (test code = 2571-8) 57 mg/dL 0-149 HDL Cholesterol (test code = 37 mg/dL >39 L 2085-9) VLDL Cholesterol Renuka (test code = 11 mg/dL 5-40 18787-4) LDL Cholesterol Calc (test code = 193 mg/dL 0-99 H 82762-2) Comment: (test code = 01913-3) [facility] Description: Lipid [id number] 01:17:00 Test Item Value Reference Range Interpretation Comments Cholesterol, Total (test code = 241 mg/dL 100-199 H 2093-3) Triglycerides (test code = 2571-8) 57 mg/dL 0-149 HDL Cholesterol (test code = 37 mg/dL >39 L 2085-9) VLDL Cholesterol Renuka (test code = 11 mg/dL 5-40 40154-5) LDL Cholesterol Calc (test code = 193 mg/dL 0-99 H 53012-2) Comment: (test code = 92151-1) [facility] Description: Lipid [id number] 01:17:00 Test Item Value Reference Range Interpretation Comments Cholesterol, Total (test code = 241 mg/dL 100-199 H 2093-3) Triglycerides (test code = 2571-8) 57 mg/dL 0-149 HDL Cholesterol (test code = 37 mg/dL >39 L 2085-9) VLDL Cholesterol Renuka (test code = 11 mg/dL 5-40 67612-9) LDL Cholesterol Calc (test code = 193 mg/dL 0-99 H 56321-2) Comment: (test code = 45539-7) [facility] Description: Lipid [id number] 01:17:00 Test Item Value Reference Range Interpretation Comments Cholesterol, Total (test code = 241 mg/dL 100-199 H 2093-3) Triglycerides (test code = 2571-8) 57 mg/dL 0-149 HDL Cholesterol (test code = 37 mg/dL >39 L 2085-9) VLDL Cholesterol Renuka (test code = 11 mg/dL 5-40 51971-2) LDL Cholesterol Calc (test code = 193 mg/dL 0-99 H 67968-2) Comment: (test code = 69050-3) [facility] Description: Lipid [id number] 01:17:00 Test Item Value Reference Range Interpretation Comments Cholesterol, Total (test code = 241 mg/dL 100-199 H 2093-3) Triglycerides (test code = 2571-8) 57 mg/dL 0-149 HDL Cholesterol (test code = 37 mg/dL >39 L 2085-9) VLDL Cholesterol Renuka (test code = 11 mg/dL 5-40 56179-1) LDL Cholesterol Calc (test code = 193 mg/dL 0-99 H 81768-0) Comment: (test code = 32267-0) [facility] Description: Lipid [id number] 01:17:00 Test Item Value Reference Range Interpretation Comments Cholesterol, Total (test code = 241 mg/dL 100-199 H 2093-3) Triglycerides (test code = 2571-8) 57 mg/dL 0-149 HDL Cholesterol (test code = 37 mg/dL >39 L 2085-9) VLDL Cholesterol Renuka (test code = 11 mg/dL 5-40 79770-9) LDL Cholesterol Calc (test code = 193 mg/dL 0-99 H 59316-4) Comment: (test code = 99045-6) [facility] Description: Lipid [id number] 01:17:00 Test Item Value Reference Range Interpretation Comments Cholesterol, Total (test code = 241 mg/dL 100-199 H 2093-3) Triglycerides (test code = 2571-8) 57 mg/dL 0-149 HDL Cholesterol (test code = 37 mg/dL >39 L 2085-9) VLDL Cholesterol Renuka (test code = 11 mg/dL 5-40 22338-6) LDL Cholesterol Calc (test code = 193 mg/dL 0-99 H 95082-4) Comment: (test code = 48379-6) [facility] Description: Lipid [id number] 01:17:00 Test Item Value Reference Range Interpretation Comments Cholesterol, Total (test code = 241 mg/dL 100-199 H 2093-3) Triglycerides (test code = 2571-8) 57 mg/dL 0-149 HDL Cholesterol (test code = 37 mg/dL >39 L 2085-9) VLDL Cholesterol Renuka (test code = 11 mg/dL 5-40 99496-3) LDL Cholesterol Calc (test code = 193 mg/dL 0-99 H 77643-2) Comment: (test code = 15705-2) [facility] Description: Lipid [id number] 01:17:00 Test Item Value Reference Range Interpretation Comments Cholesterol, Total (test code = 241 mg/dL 100-199 H 2093-3) Triglycerides (test code = 2571-8) 57 mg/dL 0-149 HDL Cholesterol (test code = 37 mg/dL >39 L 2085-9) VLDL Cholesterol Reunka (test code = 11 mg/dL 5-40 70254-6) LDL Cholesterol Calc (test code = 193 mg/dL 0-99 H 39541-7) Comment: (test code = 21227-2) [facility] Description: Lipid [id number] 01:17:00 Test Item Value Reference Range Interpretation Comments Cholesterol, Total (test code = 241 mg/dL 100-199 H 2093-3) Triglycerides (test code = 2571-8) 57 mg/dL 0-149 HDL Cholesterol (test code = 37 mg/dL >39 L 2085-9) VLDL Cholesterol Renuka (test code = 11 mg/dL 5-40 49850-4) LDL Cholesterol Calc (test code = 193 mg/dL 0-99 H 40640-3) Comment: (test code = 52758-2) [facility] Description: Lipid [id number] 01:17:00 Test Item Value Reference Range Interpretation Comments Cholesterol, Total (test code = 241 mg/dL 100-199 H 2093-3) Triglycerides (test code = 2571-8) 57 mg/dL 0-149 HDL Cholesterol (test code = 37 mg/dL >39 L 2085-9) VLDL Cholesterol Renuka (test code = 11 mg/dL 5-40 93824-7) LDL Cholesterol Calc (test code = 193 mg/dL 0-99 H 00965-0) Comment: (test code = 22986-8) [facility] Description: Lipid [id number] 01:17:00 Test Item Value Reference Range Interpretation Comments Cholesterol, Total (test code = 241 mg/dL 100-199 H 2093-3) Triglycerides (test code = 2571-8) 57 mg/dL 0-149 HDL Cholesterol (test code = 37 mg/dL >39 L 2085-9) VLDL Cholesterol Renuka (test code = 11 mg/dL 5-40 86285-5) LDL Cholesterol Calc (test code = 193 mg/dL 0-99 H 59083-8) Comment: (test code = 89500-2) [facility] Description: Lipid [id number] 01:17:00 Test Item Value Reference Range Interpretation Comments Cholesterol, Total (test code = 241 mg/dL 100-199 H 2093-3) Triglycerides (test code = 2571-8) 57 mg/dL 0-149 HDL Cholesterol (test code = 37 mg/dL >39 L 2085-9) VLDL Cholesterol Renuka (test code = 11 mg/dL 5-40 76505-3) LDL Cholesterol Calc (test code = 193 mg/dL 0-99 H 87141-0) Comment: (test code = 33311-3) [facility] Description: Lipid [id number] 01:17:00 Test Item Value Reference Range Interpretation Comments Cholesterol, Total (test code = 241 mg/dL 100-199 H 2093-3) Triglycerides (test code = 2571-8) 57 mg/dL 0-149 HDL Cholesterol (test code = 37 mg/dL >39 L 2085-9) VLDL Cholesterol Renuka (test code = 11 mg/dL 5-40 91180-0) LDL Cholesterol Calc (test code = 193 mg/dL 0-99 H 96037-3) Comment: (test code = 27124-7) [facility] Description: Lipid [id number] 01:17:00 Test Item Value Reference Range Interpretation Comments Cholesterol, Total (test code = 241 mg/dL 100-199 H 2093-3) Triglycerides (test code = 2571-8) 57 mg/dL 0-149 HDL Cholesterol (test code = 37 mg/dL >39 L 2085-9) VLDL Cholesterol Renuka (test code = 11 mg/dL 5-40 82917-7) LDL Cholesterol Calc (test code = 193 mg/dL 0-99 H 84876-3) Comment: (test code = 50692-2) [facility] Description: Lipid [id number] 01:17:00 Test Item Value Reference Range Interpretation Comments Cholesterol, Total (test code = 241 mg/dL 100-199 H 2093-3) Triglycerides (test code = 2571-8) 57 mg/dL 0-149 HDL Cholesterol (test code = 37 mg/dL >39 L 2085-9) VLDL Cholesterol Renuka (test code = 11 mg/dL 5-40 67587-8) LDL Cholesterol Calc (test code = 193 mg/dL 0-99 H 78201-6) Comment: (test code = 60902-3) [facility] Description: Lipid [id number] 01:17:00 Test Item Value Reference Range Interpretation Comments Cholesterol, Total (test code = 241 mg/dL 100-199 H 2093-3) Triglycerides (test code = 2571-8) 57 mg/dL 0-149 HDL Cholesterol (test code = 37 mg/dL >39 L 2085-9) VLDL Cholesterol Renuka (test code = 11 mg/dL 5-40 98040-4) LDL Cholesterol Calc (test code = 193 mg/dL 0-99 H 61245-5) Comment: (test code = 99169-5) [facility] Description: Lipid [id number] 01:17:00 Test Item Value Reference Range Interpretation Comments Cholesterol, Total (test code = 241 mg/dL 100-199 H 2093-3) Triglycerides (test code = 2571-8) 57 mg/dL 0-149 HDL Cholesterol (test code = 37 mg/dL >39 L 2085-9) VLDL Cholesterol Renuka (test code = 11 mg/dL 5-40 95644-7) LDL Cholesterol Calc (test code = 193 mg/dL 0-99 H 49546-5) Comment: (test code = 65838-2) [facility] Description: Lipid [id number] 01:17:00 Test Item Value Reference Range Interpretation Comments Cholesterol, Total (test code = 241 mg/dL 100-199 H 2093-3) Triglycerides (test code = 2571-8) 57 mg/dL 0-149 HDL Cholesterol (test code = 37 mg/dL >39 L 2085-9) VLDL Cholesterol Renuka (test code = 11 mg/dL 5-40 55372-4) LDL Cholesterol Calc (test code = 193 mg/dL 0-99 H 16191-0) Comment: (test code = 01161-3) [employer] Description: Lipid [id number] 01:17:00 Test Item Value Reference Range Interpretation Comments Cholesterol, Total (test code = 241 mg/dL 100-199 H 2093-3) Triglycerides (test code = 2571-8) 57 mg/dL 0-149 HDL Cholesterol (test code = 37 mg/dL >39 L 2085-9) VLDL Cholesterol Renuka (test code = 11 mg/dL 5-40 67185-5) LDL Cholesterol Calc (test code = 193 mg/dL 0-99 H 30486-5) Comment: (test code = 15316-3) [employer] Description: Lipid [id number] 01:17:00 Test Item Value Reference Range Interpretation Comments Cholesterol, Total (test code = 241 mg/dL 100-199 H 2093-3) Triglycerides (test code = 2571-8) 57 mg/dL 0-149 HDL Cholesterol (test code = 37 mg/dL >39 L 2085-9) VLDL Cholesterol Renuka (test code = 11 mg/dL 5-40 48226-5) LDL Cholesterol Calc (test code = 193 mg/dL 0-99 H 61166-9) Comment: (test code = 30581-7) [employer] Description: Comp. Metabolic Panel (14)2019-07-04 01:03:00 Test Item Value Reference Range Interpretation Comments Glucose (test code = 2345-7) 262 mg/dL 65-99 H BUN (test code = 3094-0) 27 mg/dL 6-24 H Creatinine (test code = 1.46 mg/dL 0.76-1.27 H 2160-0) eGFR If NonAfricn Am (test 57 mL/min/1.73 >59 L code = 44742-7) eGFR If Africn Am (test code = 66 mL/min/1.73 >59 46524-7) BUN/Creatinine Ratio (test 18 9-20 code = 3097-3) Sodium (test code = 2951-2) 140 mmol/L 134-144 Potassium (test code = 2823-3) 4.4 mmol/L 3.5-5.2 Chloride (test code = 2075-0) 106 mmol/L 96-106 Carbon Dioxide, Total (test 23 mmol/L 20-29 code = 2028-9) Calcium (test code = 75576-6) 8.7 mg/dL 8.7-10.2 Protein, Total (test code = 5.3 g/dL 6.0-8.5 L 2885-2) Albumin (test code = 1751-7) 3.0 g/dL 4.0-5.0 L Globulin, Total (test code = 2.3 g/dL 1.5-4.5 18116-7) A/G Ratio (test code = 1759-0) 1.3 1.2-2.2 Bilirubin, Total (test code = 0.5 mg/dL 0.0-1.2 1975-2) Alkaline Phosphatase (test 95 IU/L 39-117 code = 6768-6) AST (SGOT) (test code = 16 IU/L 0-40 1920-8) ALT (SGPT) (test code = 23 IU/L 0-44 1742-6) [facility] Description: Comp. Metabolic Panel (14)2019-07-04 01:03:00 Test Item Value Reference Range Interpretation Comments Glucose (test code = 2345-7) 262 mg/dL 65-99 H BUN (test code = 3094-0) 27 mg/dL 6-24 H Creatinine (test code = 1.46 mg/dL 0.76-1.27 H 2160-0) eGFR If NonAfricn Am (test 57 mL/min/1.73 >59 L code = 96421-4) eGFR If Africn Am (test code = 66 mL/min/1.73 >59 60787-8) BUN/Creatinine Ratio (test 18 9-20 code = 3097-3) Sodium (test code = 2951-2) 140 mmol/L 134-144 Potassium (test code = 2823-3) 4.4 mmol/L 3.5-5.2 Chloride (test code = 2075-0) 106 mmol/L 96-106 Carbon Dioxide, Total (test 23 mmol/L 20-29 code = 2028-9) Calcium (test code = 53048-8) 8.7 mg/dL 8.7-10.2 Protein, Total (test code = 5.3 g/dL 6.0-8.5 L 2885-2) Albumin (test code = 1751-7) 3.0 g/dL 4.0-5.0 L Globulin, Total (test code = 2.3 g/dL 1.5-4.5 28731-0) A/G Ratio (test code = 1759-0) 1.3 1.2-2.2 Bilirubin, Total (test code = 0.5 mg/dL 0.0-1.2 1975-2) Alkaline Phosphatase (test 95 IU/L 39-117 code = 6768-6) AST (SGOT) (test code = 16 IU/L 0-40 1920-8) ALT (SGPT) (test code = 23 IU/L 0-44 1742-6) [facility] Description: Comp. Metabolic Panel (14)2019-07-04 01:03:00 Test Item Value Reference Range Interpretation Comments Glucose (test code = 2345-7) 262 mg/dL 65-99 H BUN (test code = 3094-0) 27 mg/dL 6-24 H Creatinine (test code = 1.46 mg/dL 0.76-1.27 H 2160-0) eGFR If NonAfricn Am (test 57 mL/min/1.73 >59 L code = 47698-8) eGFR If Africn Am (test code = 66 mL/min/1.73 >59 37158-6) BUN/Creatinine Ratio (test 18 9-20 code = 3097-3) Sodium (test code = 2951-2) 140 mmol/L 134-144 Potassium (test code = 2823-3) 4.4 mmol/L 3.5-5.2 Chloride (test code = 2075-0) 106 mmol/L 96-106 Carbon Dioxide, Total (test 23 mmol/L 20-29 code = 2028-9) Calcium (test code = 51485-3) 8.7 mg/dL 8.7-10.2 Protein, Total (test code = 5.3 g/dL 6.0-8.5 L 2885-2) Albumin (test code = 1751-7) 3.0 g/dL 4.0-5.0 L Globulin, Total (test code = 2.3 g/dL 1.5-4.5 03865-7) A/G Ratio (test code = 1759-0) 1.3 1.2-2.2 Bilirubin, Total (test code = 0.5 mg/dL 0.0-1.2 1975-2) Alkaline Phosphatase (test 95 IU/L 39-117 code = 6768-6) AST (SGOT) (test code = 16 IU/L 0-40 1920-8) ALT (SGPT) (test code = 23 IU/L 0-44 1742-6) [facility] Description: Comp. Metabolic Panel (142019-07-04 01:03:00 Test Item Value Reference Range Interpretation Comments Glucose (test code = 2345-7) 262 mg/dL 65-99 H BUN (test code = 3094-0) 27 mg/dL 6-24 H Creatinine (test code = 1.46 mg/dL 0.76-1.27 H 2160-0) eGFR If NonAfricn Am (test 57 mL/min/1.73 >59 L code = 45305-8) eGFR If Africn Am (test code = 66 mL/min/1.73 >59 44306-2) BUN/Creatinine Ratio (test 12-16 code = 3097-3) Sodium (test code = 2951-2) 140 mmol/L 134-144 Potassium (test code = 2823-3) 4.4 mmol/L 3.5-5.2 Chloride (test code = 2075-0) 106 mmol/L 96-106 Carbon Dioxide, Total (test 23 mmol/L -29 code = 2027-9) Calcium (test code = 98160-8) 8.7 mg/dL 8.7-10.2 Protein, Total (test code = 5.3 g/dL 6.0-8.5 L 2885-2) Albumin (test code = 1751-7) 3.0 g/dL 4.0-5.0 L Globulin, Total (test code = 2.3 g/dL 1.5-4.5 17300-1) A/G Ratio (test code = 1759-0) 1.3 1.2-2.2 Bilirubin, Total (test code = 0.5 mg/dL 0.0-1.2 1975-2) Alkaline Phosphatase (test 95 IU/L 39-117 code = 6768-6) AST (SGOT) (test code = 16 IU/L 0-40 1920-8) ALT (SGPT) (test code = 23 IU/L 0-44 1742-6) [facility] Description: Comp. Metabolic Panel (14)2019-07-04 01:03:00 Test Item Value Reference Range Interpretation Comments Glucose (test code = 2345-7) 262 mg/dL 65-99 H BUN (test code = 3094-0) 27 mg/dL 6-24 H Creatinine (test code = 1.46 mg/dL 0.76-1.27 H 2160-0) eGFR If NonAfricn Am (test 57 mL/min/1.73 >59 L code = 02670-0) eGFR If Africn Am (test code = 66 mL/min/1.73 >59 27030-5) BUN/Creatinine Ratio (test 18 -20 code = 3097-3) Sodium (test code = 2951-2) 140 mmol/L 134-144 Potassium (test code = 2823-3) 4.4 mmol/L 3.5-5.2 Chloride (test code = 2075-0) 106 mmol/L 96-106 Carbon Dioxide, Total (test 23 mmol/L -29 code = 8-9) Calcium (test code = 85549-4) 8.7 mg/dL 8.7-10.2 Protein, Total (test code = 5.3 g/dL 6.0-8.5 L 2885-2) Albumin (test code = 1751-7) 3.0 g/dL 4.0-5.0 L Globulin, Total (test code = 2.3 g/dL 1.5-4.5 87471-3) A/G Ratio (test code = 1759-0) 1.3 1.2-2.2 Bilirubin, Total (test code = 0.5 mg/dL 0.0-1.2 1975-2) Alkaline Phosphatase (test 95 IU/L 39-117 code = 6768-6) AST (SGOT) (test code = 16 IU/L 0-40 1920-8) ALT (SGPT) (test code = 23 IU/L 0-44 1742-6) [facility] Description: Comp. Metabolic Panel (14)2019-07-04 01:03:00 Test Item Value Reference Range Interpretation Comments Glucose (test code = 2345-7) 262 mg/dL 65-99 H BUN (test code = 3094-0) 27 mg/dL 6-24 H Creatinine (test code = 1.46 mg/dL 0.76-1.27 H 2160-0) eGFR If NonAfricn Am (test 57 mL/min/1.73 >59 L code = 79947-5) eGFR If Africn Am (test code = 66 mL/min/1.73 >59 52296-8) BUN/Creatinine Ratio (test 18 9-20 code = 3097-3) Sodium (test code = 2951-2) 140 mmol/L 134-144 Potassium (test code = 2823-3) 4.4 mmol/L 3.5-5.2 Chloride (test code = 2075-0) 106 mmol/L 96-106 Carbon Dioxide, Total (test 23 mmol/L 20-29 code = 2028-9) Calcium (test code = 13848-4) 8.7 mg/dL 8.7-10.2 Protein, Total (test code = 5.3 g/dL 6.0-8.5 L 2885-2) Albumin (test code = 1751-7) 3.0 g/dL 4.0-5.0 L Globulin, Total (test code = 2.3 g/dL 1.5-4.5 78395-1) A/G Ratio (test code = 1759-0) 1.3 1.2-2.2 Bilirubin, Total (test code = 0.5 mg/dL 0.0-1.2 1974-) Alkaline Phosphatase (test 95 IU/L 39-117 code = 6768-6) AST (SGOT) (test code = 16 IU/L 0-40 1920-8) ALT (SGPT) (test code = 23 IU/L 0-44 1742-6) [facility] Description: Comp. Metabolic Panel (14)2019-07-04 01:03:00 Test Item Value Reference Range Interpretation Comments Glucose (test code = 2345-7) 262 mg/dL 65-99 H BUN (test code = 3094-0) 27 mg/dL 6-24 H Creatinine (test code = 1.46 mg/dL 0.76-1.27 H 2160-0) eGFR If NonAfricn Am (test 57 mL/min/1.73 >59 L code = 32957-1) eGFR If Africn Am (test code = 66 mL/min/1.73 >59 32862-0) BUN/Creatinine Ratio (test 18 9-20 code = 3097-3) Sodium (test code = 2951-2) 140 mmol/L 134-144 Potassium (test code = 2823-3) 4.4 mmol/L 3.5-5.2 Chloride (test code = 2075-0) 106 mmol/L 96-106 Carbon Dioxide, Total (test 23 mmol/L 20-29 code = 8-9) Calcium (test code = 49416-4) 8.7 mg/dL 8.7-10.2 Protein, Total (test code = 5.3 g/dL 6.0-8.5 L 2885-2) Albumin (test code = 1751-7) 3.0 g/dL 4.0-5.0 L Globulin, Total (test code = 2.3 g/dL 1.5-4.5 61799-1) A/G Ratio (test code = 1759-0) 1.3 1.2-2.2 Bilirubin, Total (test code = 0.5 mg/dL 0.0-1.2 1974-04) Alkaline Phosphatase (test 95 IU/L 39-117 code = 6768-6) AST (SGOT) (test code = 16 IU/L 0-40 1920-8) ALT (SGPT) (test code = 23 IU/L 0-44 1742-6) [facility] Description: Comp. Metabolic Panel (14)2019-07-04 01:03:00 Test Item Value Reference Range Interpretation Comments Glucose (test code = 2345-7) 262 mg/dL 65-99 H BUN (test code = 3094-0) 27 mg/dL 6-24 H Creatinine (test code = 1.46 mg/dL 0.76-1.27 H 2160-0) eGFR If NonAfricn Am (test 57 mL/min/1.73 >59 L code = 96507-5) eGFR If Africn Am (test code = 66 mL/min/1.73 >59 29837-1) BUN/Creatinine Ratio (test 18 9-20 code = 3097-3) Sodium (test code = 2951-2) 140 mmol/L 134-144 Potassium (test code = 2823-3) 4.4 mmol/L 3.5-5.2 Chloride (test code = 2075-0) 106 mmol/L 96-106 Carbon Dioxide, Total (test 23 mmol/L 20-29 code = 8-9) Calcium (test code = 53960-8) 8.7 mg/dL 8.7-10.2 Protein, Total (test code = 5.3 g/dL 6.0-8.5 L 2885-2) Albumin (test code = 1751-7) 3.0 g/dL 4.0-5.0 L Globulin, Total (test code = 2.3 g/dL 1.5-4.5 69527-6) A/G Ratio (test code = 1759-0) 1.3 1.2-2.2 Bilirubin, Total (test code = 0.5 mg/dL 0.0-1.2 1974-04) Alkaline Phosphatase (test 95 IU/L 39-117 code = 6768-6) AST (SGOT) (test code = 16 IU/L 0-40 1920-8) ALT (SGPT) (test code = 23 IU/L 0-44 1742-6) [facility] Description: Comp. Metabolic Panel (14)2019-07-04 01:03:00 Test Item Value Reference Range Interpretation Comments Glucose (test code = 2345-7) 262 mg/dL 65-99 H BUN (test code = 3094-0) 27 mg/dL 6-24 H Creatinine (test code = 1.46 mg/dL 0.76-1.27 H 2160-0) eGFR If NonAfricn Am (test 57 mL/min/1.73 >59 L code = 17224-6) eGFR If Africn Am (test code = 66 mL/min/1.73 >59 78220-2) BUN/Creatinine Ratio (test 18 9-20 code = 3097-3) Sodium (test code = 2951-2) 140 mmol/L 134-144 Potassium (test code = 2823-3) 4.4 mmol/L 3.5-5.2 Chloride (test code = 2075-0) 106 mmol/L 96-106 Carbon Dioxide, Total (test 23 mmol/L 20-29 code = 8-9) Calcium (test code = 68245-6) 8.7 mg/dL 8.7-10.2 Protein, Total (test code = 5.3 g/dL 6.0-8.5 L 2885-2) Albumin (test code = 1751-7) 3.0 g/dL 4.0-5.0 L Globulin, Total (test code = 2.3 g/dL 1.5-4.5 94673-3) A/G Ratio (test code = 1759-0) 1.3 1.2-2.2 Bilirubin, Total (test code = 0.5 mg/dL 0.0-1.2 1975-2) Alkaline Phosphatase (test 95 IU/L 39-117 code = 6768-6) AST (SGOT) (test code = 16 IU/L 0-40 1920-8) ALT (SGPT) (test code = 23 IU/L 0-44 1742-6) [facility] Description: Comp. Metabolic Panel (14)2019-07-04 01:03:00 Test Item Value Reference Range Interpretation Comments Glucose (test code = 2345-7) 262 mg/dL 65-99 H BUN (test code = 3094-0) 27 mg/dL 6-24 H Creatinine (test code = 1.46 mg/dL 0.76-1.27 H 2160-0) eGFR If NonAfricn Am (test 57 mL/min/1.73 >59 L code = 85500-7) eGFR If Africn Am (test code = 66 mL/min/1.73 >59 91516-4) BUN/Creatinine Ratio (test 18 9-20 code = 3097-3) Sodium (test code = 2951-2) 140 mmol/L 134-144 Potassium (test code = 2823-3) 4.4 mmol/L 3.5-5.2 Chloride (test code = 2075-0) 106 mmol/L 96-106 Carbon Dioxide, Total (test 23 mmol/L 20-29 code = 2028-9) Calcium (test code = 97991-6) 8.7 mg/dL 8.7-10.2 Protein, Total (test code = 5.3 g/dL 6.0-8.5 L 2885-2) Albumin (test code = 1751-7) 3.0 g/dL 4.0-5.0 L Globulin, Total (test code = 2.3 g/dL 1.5-4.5 99358-7) A/G Ratio (test code = 1759-0) 1.3 1.2-2.2 Bilirubin, Total (test code = 0.5 mg/dL 0.0-1.2 1975-2) Alkaline Phosphatase (test 95 IU/L 39-117 code = 6768-6) AST (SGOT) (test code = 16 IU/L 0-40 1920-8) ALT (SGPT) (test code = 23 IU/L 0-44 1742-6) [facility] Description: Comp. Metabolic Panel (2019-07-04 01:03:00 Test Item Value Reference Range Interpretation Comments Glucose (test code = 2345-7) 262 mg/dL 65-99 H BUN (test code = 3094-0) 27 mg/dL 6-24 H Creatinine (test code = 1.46 mg/dL 0.76-1.27 H 2160-0) eGFR If NonAfricn Am (test 57 mL/min/1.73 >59 L code = 79755-3) eGFR If Africn Am (test code = 66 mL/min/1.73 >59 06240-2) BUN/Creatinine Ratio (test 18 12-16 code = 3097-3) Sodium (test code = 2951-2) 140 mmol/L 134-144 Potassium (test code = 2823-3) 4.4 mmol/L 3.5-5.2 Chloride (test code = 2075-0) 106 mmol/L 96-106 Carbon Dioxide, Total (test 23 mmol/L 20-29 code = 2028-9) Calcium (test code = 55438-4) 8.7 mg/dL 8.7-10.2 Protein, Total (test code = 5.3 g/dL 6.0-8.5 L 2885-2) Albumin (test code = 1751-7) 3.0 g/dL 4.0-5.0 L Globulin, Total (test code = 2.3 g/dL 1.5-4.5 47138-4) A/G Ratio (test code = 1759-0) 1.3 1.2-2.2 Bilirubin, Total (test code = 0.5 mg/dL 0.0-1.2 1975-2) Alkaline Phosphatase (test 95 IU/L 39-117 code = 6768-6) AST (SGOT) (test code = 16 IU/L 0-40 1920-8) ALT (SGPT) (test code = 23 IU/L 0-44 1742-6) [facility] Description: Comp. Metabolic Panel (14)2019-07-04 01:03:00 Test Item Value Reference Range Interpretation Comments Glucose (test code = 2345-7) 262 mg/dL 65-99 H BUN (test code = 3094-0) 27 mg/dL 6-24 H Creatinine (test code = 1.46 mg/dL 0.76-1.27 H 2160-0) eGFR If NonAfricn Am (test 57 mL/min/1.73 >59 L code = 51777-9) eGFR If Africn Am (test code = 66 mL/min/1.73 >59 66069-5) BUN/Creatinine Ratio (test 12-16 code = 3097-3) Sodium (test code = 2951-2) 140 mmol/L 134-144 Potassium (test code = 2823-3) 4.4 mmol/L 3.5-5.2 Chloride (test code = 2075-0) 106 mmol/L 96-106 Carbon Dioxide, Total (test 23 mmol/L - code = 2027-) Calcium (test code = 80172-7) 8.7 mg/dL 8.7-10.2 Protein, Total (test code = 5.3 g/dL 6.0-8.5 L 2885-2) Albumin (test code = 1751-7) 3.0 g/dL 4.0-5.0 L Globulin, Total (test code = 2.3 g/dL 1.5-4.5 80274-1) A/G Ratio (test code = 1759-0) 1.3 1.2-2.2 Bilirubin, Total (test code = 0.5 mg/dL 0.0-1.2 1975-2) Alkaline Phosphatase (test 95 IU/L 39-117 code = 6768-6) AST (SGOT) (test code = 16 IU/L 0-40 1920-8) ALT (SGPT) (test code = 23 IU/L 0-44 1742-6) [facility] Description: Comp. Metabolic Panel (14)2019-07-04 01:03:00 Test Item Value Reference Range Interpretation Comments Glucose (test code = 2345-7) 262 mg/dL 65-99 H BUN (test code = 3094-0) 27 mg/dL 6-24 H Creatinine (test code = 1.46 mg/dL 0.76-1.27 H 2160-0) eGFR If NonAfricn Am (test 57 mL/min/1.73 >59 L code = 24374-8) eGFR If Africn Am (test code = 66 mL/min/1.73 >59 80311-5) BUN/Creatinine Ratio (test 18 - code = 3097-3) Sodium (test code = 2951-2) 140 mmol/L 134-144 Potassium (test code = 2823-3) 4.4 mmol/L 3.5-5.2 Chloride (test code = 2075-0) 106 mmol/L 96-106 Carbon Dioxide, Total (test 23 mmol/L - code = 2027-) Calcium (test code = 50412-7) 8.7 mg/dL 8.7-10.2 Protein, Total (test code = 5.3 g/dL 6.0-8.5 L 2885-2) Albumin (test code = 1751-7) 3.0 g/dL 4.0-5.0 L Globulin, Total (test code = 2.3 g/dL 1.5-4.5 00736-8) A/G Ratio (test code = 1759-0) 1.3 1.2-2.2 Bilirubin, Total (test code = 0.5 mg/dL 0.0-1.2 1975-2) Alkaline Phosphatase (test 95 IU/L 39-117 code = 6768-6) AST (SGOT) (test code = 16 IU/L 0-40 1920-8) ALT (SGPT) (test code = 23 IU/L 0-44 1742-6) [facility] Description: Comp. Metabolic Panel (142019-07-04 01:03:00 Test Item Value Reference Range Interpretation Comments Glucose (test code = 2345-7) 262 mg/dL 65-99 H BUN (test code = 3094-0) 27 mg/dL 6-24 H Creatinine (test code = 1.46 mg/dL 0.76-1.27 H 2160-0) eGFR If NonAfricn Am (test 57 mL/min/1.73 >59 L code = 10593-5) eGFR If Africn Am (test code = 66 mL/min/1.73 >59 35804-8) BUN/Creatinine Ratio (test 18 -20 code = 3097-3) Sodium (test code = 2951-2) 140 mmol/L 134-144 Potassium (test code = 2823-3) 4.4 mmol/L 3.5-5.2 Chloride (test code = 2075-0) 106 mmol/L 96-106 Carbon Dioxide, Total (test 23 mmol/L 20-29 code = 2027-9) Calcium (test code = 45592-6) 8.7 mg/dL 8.7-10.2 Protein, Total (test code = 5.3 g/dL 6.0-8.5 L 2885-2) Albumin (test code = 1751-7) 3.0 g/dL 4.0-5.0 L Globulin, Total (test code = 2.3 g/dL 1.5-4.5 15037-8) A/G Ratio (test code = 1759-0) 1.3 1.2-2.2 Bilirubin, Total (test code = 0.5 mg/dL 0.0-1.2 1975-2) Alkaline Phosphatase (test 95 IU/L 39-117 code = 6768-6) AST (SGOT) (test code = 16 IU/L 0-40 1920-8) ALT (SGPT) (test code = 23 IU/L 0-44 1742-6) [facility] Description: Comp. Metabolic Panel (14)2019-07-04 01:03:00 Test Item Value Reference Range Interpretation Comments Glucose (test code = 2345-7) 262 mg/dL 65-99 H BUN (test code = 3094-0) 27 mg/dL 6-24 H Creatinine (test code = 1.46 mg/dL 0.76-1.27 H 2160-0) eGFR If NonAfricn Am (test 57 mL/min/1.73 >59 L code = 78764-2) eGFR If Africn Am (test code = 66 mL/min/1.73 >59 13536-9) BUN/Creatinine Ratio (test 18 9-20 code = 3097-3) Sodium (test code = 2951-2) 140 mmol/L 134-144 Potassium (test code = 2823-3) 4.4 mmol/L 3.5-5.2 Chloride (test code = 2075-0) 106 mmol/L 96-106 Carbon Dioxide, Total (test 23 mmol/L 20-29 code = 2028-9) Calcium (test code = 71835-1) 8.7 mg/dL 8.7-10.2 Protein, Total (test code = 5.3 g/dL 6.0-8.5 L 2885-2) Albumin (test code = 1751-7) 3.0 g/dL 4.0-5.0 L Globulin, Total (test code = 2.3 g/dL 1.5-4.5 19856-7) A/G Ratio (test code = 1759-0) 1.3 1.2-2.2 Bilirubin, Total (test code = 0.5 mg/dL 0.0-1.2 1974-) Alkaline Phosphatase (test 95 IU/L 39-117 code = 6768-6) AST (SGOT) (test code = 16 IU/L 0-40 1920-8) ALT (SGPT) (test code = 23 IU/L 0-44 1742-6) [facility] Description: Comp. Metabolic Panel (2019-07-04 01:03:00 Test Item Value Reference Range Interpretation Comments Glucose (test code = 2345-7) 262 mg/dL 65-99 H BUN (test code = 3094-0) 27 mg/dL 6-24 H Creatinine (test code = 1.46 mg/dL 0.76-1.27 H 2160-0) eGFR If NonAfricn Am (test 57 mL/min/1.73 >59 L code = 39647-1) eGFR If Africn Am (test code = 66 mL/min/1.73 >59 91517-5) BUN/Creatinine Ratio (test 18 9-20 code = 3097-3) Sodium (test code = 2951-2) 140 mmol/L 134-144 Potassium (test code = 2823-3) 4.4 mmol/L 3.5-5.2 Chloride (test code = 2075-0) 106 mmol/L 96-106 Carbon Dioxide, Total (test 23 mmol/L 20-29 code = 2028-9) Calcium (test code = 03776-4) 8.7 mg/dL 8.7-10.2 Protein, Total (test code = 5.3 g/dL 6.0-8.5 L 2885-2) Albumin (test code = 1751-7) 3.0 g/dL 4.0-5.0 L Globulin, Total (test code = 2.3 g/dL 1.5-4.5 61031-9) A/G Ratio (test code = 1759-0) 1.3 1.2-2.2 Bilirubin, Total (test code = 0.5 mg/dL 0.0-1.2 1974-04) Alkaline Phosphatase (test 95 IU/L 39-117 code = 6768-6) AST (SGOT) (test code = 16 IU/L 0-40 1920-8) ALT (SGPT) (test code = 23 IU/L 0-44 1742-6) [facility] Description: Comp. Metabolic Panel (14)2019-07-04 01:03:00 Test Item Value Reference Range Interpretation Comments Glucose (test code = 2345-7) 262 mg/dL 65-99 H BUN (test code = 3094-0) 27 mg/dL 6-24 H Creatinine (test code = 1.46 mg/dL 0.76-1.27 H 2160-0) eGFR If NonAfricn Am (test 57 mL/min/1.73 >59 L code = 23942-6) eGFR If Africn Am (test code = 66 mL/min/1.73 >59 98017-9) BUN/Creatinine Ratio (test 18 9-20 code = 3097-3) Sodium (test code = 2951-2) 140 mmol/L 134-144 Potassium (test code = 2823-3) 4.4 mmol/L 3.5-5.2 Chloride (test code = 2075-0) 106 mmol/L 96-106 Carbon Dioxide, Total (test 23 mmol/L 20-29 code = 2028-9) Calcium (test code = 52432-5) 8.7 mg/dL 8.7-10.2 Protein, Total (test code = 5.3 g/dL 6.0-8.5 L 2885-2) Albumin (test code = 1751-7) 3.0 g/dL 4.0-5.0 L Globulin, Total (test code = 2.3 g/dL 1.5-4.5 73068-7) A/G Ratio (test code = 1759-0) 1.3 1.2-2.2 Bilirubin, Total (test code = 0.5 mg/dL 0.0-1.2 1975-2) Alkaline Phosphatase (test 95 IU/L 39-117 code = 6768-6) AST (SGOT) (test code = 16 IU/L 0-40 1920-8) ALT (SGPT) (test code = 23 IU/L 0-44 1742-6) [facility] Description: Comp. Metabolic Panel (14)2019-07-04 01:03:00 Test Item Value Reference Range Interpretation Comments Glucose (test code = 2345-7) 262 mg/dL 65-99 H BUN (test code = 3094-0) 27 mg/dL 6-24 H Creatinine (test code = 1.46 mg/dL 0.76-1.27 H 2160-0) eGFR If NonAfricn Am (test 57 mL/min/1.73 >59 L code = 29455-0) eGFR If Africn Am (test code = 66 mL/min/1.73 >59 29746-2) BUN/Creatinine Ratio (test 18 9-20 code = 3097-3) Sodium (test code = 2951-2) 140 mmol/L 134-144 Potassium (test code = 2823-3) 4.4 mmol/L 3.5-5.2 Chloride (test code = 2075-0) 106 mmol/L 96-106 Carbon Dioxide, Total (test 23 mmol/L 20-29 code = 2028-9) Calcium (test code = 56921-9) 8.7 mg/dL 8.7-10.2 Protein, Total (test code = 5.3 g/dL 6.0-8.5 L 2885-2) Albumin (test code = 1751-7) 3.0 g/dL 4.0-5.0 L Globulin, Total (test code = 2.3 g/dL 1.5-4.5 86424-0) A/G Ratio (test code = 1759-0) 1.3 1.2-2.2 Bilirubin, Total (test code = 0.5 mg/dL 0.0-1.2 1975-2) Alkaline Phosphatase (test 95 IU/L 39-117 code = 6768-6) AST (SGOT) (test code = 16 IU/L 0-40 1920-8) ALT (SGPT) (test code = 23 IU/L 0-44 1742-6) [facility] Description: Comp. Metabolic Panel (14)2019-07-04 01:03:00 Test Item Value Reference Range Interpretation Comments Glucose (test code = 2345-7) 262 mg/dL 65-99 H BUN (test code = 3094-0) 27 mg/dL 6-24 H Creatinine (test code = 1.46 mg/dL 0.76-1.27 H 2160-0) eGFR If NonAfricn Am (test 57 mL/min/1.73 >59 L code = 91276-8) eGFR If Africn Am (test code = 66 mL/min/1.73 >59 26480-5) BUN/Creatinine Ratio (test 12-16 code = 3097-3) Sodium (test code = 2951-2) 140 mmol/L 134-144 Potassium (test code = 2823-3) 4.4 mmol/L 3.5-5.2 Chloride (test code = 2075-0) 106 mmol/L 96-106 Carbon Dioxide, Total (test 23 mmol/L 20-29 code = 2028-9) Calcium (test code = 39577-0) 8.7 mg/dL 8.7-10.2 Protein, Total (test code = 5.3 g/dL 6.0-8.5 L 2885-2) Albumin (test code = 1751-7) 3.0 g/dL 4.0-5.0 L Globulin, Total (test code = 2.3 g/dL 1.5-4.5 57621-6) A/G Ratio (test code = 1759-0) 1.3 1.2-2.2 Bilirubin, Total (test code = 0.5 mg/dL 0.0-1.2 1975-2) Alkaline Phosphatase (test 95 IU/L 39-117 code = 6768-6) AST (SGOT) (test code = 16 IU/L 0-40 1920-8) ALT (SGPT) (test code = 23 IU/L 0-44 1742-6) [facility] Description: Comp. Metabolic Panel (14)2019-07-04 01:03:00 Test Item Value Reference Range Interpretation Comments Glucose (test code = 2345-7) 262 mg/dL 65-99 H BUN (test code = 3094-0) 27 mg/dL 6-24 H Creatinine (test code = 1.46 mg/dL 0.76-1.27 H 2160-0) eGFR If NonAfricn Am (test 57 mL/min/1.73 >59 L code = 67838-4) eGFR If Africn Am (test code = 66 mL/min/1.73 >59 69335-8) BUN/Creatinine Ratio (test 18 12-16 code = 3097-3) Sodium (test code = 2951-2) 140 mmol/L 134-144 Potassium (test code = 2823-3) 4.4 mmol/L 3.5-5.2 Chloride (test code = 2075-0) 106 mmol/L 96-106 Carbon Dioxide, Total (test 23 mmol/L 20-29 code = 2028-9) Calcium (test code = 25757-1) 8.7 mg/dL 8.7-10.2 Protein, Total (test code = 5.3 g/dL 6.0-8.5 L 2885-2) Albumin (test code = 1751-7) 3.0 g/dL 4.0-5.0 L Globulin, Total (test code = 2.3 g/dL 1.5-4.5 23373-1) A/G Ratio (test code = 1759-0) 1.3 1.2-2.2 Bilirubin, Total (test code = 0.5 mg/dL 0.0-1.2 1975-2) Alkaline Phosphatase (test 95 IU/L 39-117 code = 6768-6) AST (SGOT) (test code = 16 IU/L 0-40 1920-8) ALT (SGPT) (test code = 23 IU/L 0-44 1742-6) [facility] Description: Comp. Metabolic Panel (14)2019-07-04 01:03:00 Test Item Value Reference Range Interpretation Comments Glucose (test code = 2345-7) 262 mg/dL 65-99 H BUN (test code = 3094-0) 27 mg/dL 6-24 H Creatinine (test code = 1.46 mg/dL 0.76-1.27 H 2160-0) eGFR If NonAfricn Am (test 57 mL/min/1.73 >59 L code = 56292-0) eGFR If Africn Am (test code = 66 mL/min/1.73 >59 14061-0) BUN/Creatinine Ratio (test 12-16 code = 3097-3) Sodium (test code = 2951-2) 140 mmol/L 134-144 Potassium (test code = 2823-3) 4.4 mmol/L 3.5-5.2 Chloride (test code = 2075-0) 106 mmol/L 96-106 Carbon Dioxide, Total (test 23 mmol/L -29 code = 2027-9) Calcium (test code = 08913-7) 8.7 mg/dL 8.7-10.2 Protein, Total (test code = 5.3 g/dL 6.0-8.5 L 2885-2) Albumin (test code = 1751-7) 3.0 g/dL 4.0-5.0 L Globulin, Total (test code = 2.3 g/dL 1.5-4.5 52826-0) A/G Ratio (test code = 1759-0) 1.3 1.2-2.2 Bilirubin, Total (test code = 0.5 mg/dL 0.0-1.2 1975-2) Alkaline Phosphatase (test 95 IU/L 39-117 code = 6768-6) AST (SGOT) (test code = 16 IU/L 0-40 1920-8) ALT (SGPT) (test code = 23 IU/L 0-44 1742-6) [facility] Description: Comp. Metabolic Panel (14)2019-07-04 01:03:00 Test Item Value Reference Range Interpretation Comments Glucose (test code = 2345-7) 262 mg/dL 65-99 H BUN (test code = 3094-0) 27 mg/dL 6-24 H Creatinine (test code = 1.46 mg/dL 0.76-1.27 H 2160-0) eGFR If NonAfricn Am (test 57 mL/min/1.73 >59 L code = 89144-2) eGFR If Africn Am (test code = 66 mL/min/1.73 >59 77669-7) BUN/Creatinine Ratio (test 18 -20 code = 3097-3) Sodium (test code = 2951-2) 140 mmol/L 134-144 Potassium (test code = 2823-3) 4.4 mmol/L 3.5-5.2 Chloride (test code = 2075-0) 106 mmol/L 96-106 Carbon Dioxide, Total (test 23 mmol/L -29 code = 8-9) Calcium (test code = 34126-6) 8.7 mg/dL 8.7-10.2 Protein, Total (test code = 5.3 g/dL 6.0-8.5 L 2885-2) Albumin (test code = 1751-7) 3.0 g/dL 4.0-5.0 L Globulin, Total (test code = 2.3 g/dL 1.5-4.5 49622-4) A/G Ratio (test code = 1759-0) 1.3 1.2-2.2 Bilirubin, Total (test code = 0.5 mg/dL 0.0-1.2 1975-2) Alkaline Phosphatase (test 95 IU/L 39-117 code = 6768-6) AST (SGOT) (test code = 16 IU/L 0-40 1920-8) ALT (SGPT) (test code = 23 IU/L 0-44 1742-6) [facility] Description: Comp. Metabolic Panel (14)2019-07-04 01:03:00 Test Item Value Reference Range Interpretation Comments Glucose (test code = 2345-7) 262 mg/dL 65-99 H BUN (test code = 3094-0) 27 mg/dL 6-24 H Creatinine (test code = 1.46 mg/dL 0.76-1.27 H 2160-0) eGFR If NonAfricn Am (test 57 mL/min/1.73 >59 L code = 51579-2) eGFR If Africn Am (test code = 66 mL/min/1.73 >59 43025-7) BUN/Creatinine Ratio (test 18 9-20 code = 3097-3) Sodium (test code = 2951-2) 140 mmol/L 134-144 Potassium (test code = 2823-3) 4.4 mmol/L 3.5-5.2 Chloride (test code = 2075-0) 106 mmol/L 96-106 Carbon Dioxide, Total (test 23 mmol/L 20-29 code = 2028-9) Calcium (test code = 04593-3) 8.7 mg/dL 8.7-10.2 Protein, Total (test code = 5.3 g/dL 6.0-8.5 L 2885-2) Albumin (test code = 1751-7) 3.0 g/dL 4.0-5.0 L Globulin, Total (test code = 2.3 g/dL 1.5-4.5 93962-9) A/G Ratio (test code = 1759-0) 1.3 1.2-2.2 Bilirubin, Total (test code = 0.5 mg/dL 0.0-1.2 1974-2) Alkaline Phosphatase (test 95 IU/L 39-117 code = 6768-6) AST (SGOT) (test code = 16 IU/L 0-40 1920-8) ALT (SGPT) (test code = 23 IU/L 0-44 1742-6) [facility] Description: Comp. Metabolic Panel (14)2019-07-04 01:03:00 Test Item Value Reference Range Interpretation Comments Glucose (test code = 2345-7) 262 mg/dL 65-99 H BUN (test code = 3094-0) 27 mg/dL 6-24 H Creatinine (test code = 1.46 mg/dL 0.76-1.27 H 2160-0) eGFR If NonAfricn Am (test 57 mL/min/1.73 >59 L code = 27635-1) eGFR If Africn Am (test code = 66 mL/min/1.73 >59 41171-5) BUN/Creatinine Ratio (test 18 9-20 code = 3097-3) Sodium (test code = 2951-2) 140 mmol/L 134-144 Potassium (test code = 2823-3) 4.4 mmol/L 3.5-5.2 Chloride (test code = 2075-0) 106 mmol/L 96-106 Carbon Dioxide, Total (test 23 mmol/L 20-29 code = 8-9) Calcium (test code = 36520-0) 8.7 mg/dL 8.7-10.2 Protein, Total (test code = 5.3 g/dL 6.0-8.5 L 2885-2) Albumin (test code = 1751-7) 3.0 g/dL 4.0-5.0 L Globulin, Total (test code = 2.3 g/dL 1.5-4.5 56318-7) A/G Ratio (test code = 1759-0) 1.3 1.2-2.2 Bilirubin, Total (test code = 0.5 mg/dL 0.0-1.2 1974-2) Alkaline Phosphatase (test 95 IU/L 39-117 code = 6768-6) AST (SGOT) (test code = 16 IU/L 0-40 1920-8) ALT (SGPT) (test code = 23 IU/L 0-44 1742-6) [facility] Description: Comp. Metabolic Panel (14)2019-07-04 01:03:00 Test Item Value Reference Range Interpretation Comments Glucose (test code = 2345-7) 262 mg/dL 65-99 H BUN (test code = 3094-0) 27 mg/dL 6-24 H Creatinine (test code = 1.46 mg/dL 0.76-1.27 H 2160-0) eGFR If NonAfricn Am (test 57 mL/min/1.73 >59 L code = 60460-1) eGFR If Africn Am (test code = 66 mL/min/1.73 >59 57729-4) BUN/Creatinine Ratio (test 18 9-20 code = 3097-3) Sodium (test code = 2951-2) 140 mmol/L 134-144 Potassium (test code = 2823-3) 4.4 mmol/L 3.5-5.2 Chloride (test code = 2075-0) 106 mmol/L 96-106 Carbon Dioxide, Total (test 23 mmol/L 20-29 code = 8-9) Calcium (test code = 00472-5) 8.7 mg/dL 8.7-10.2 Protein, Total (test code = 5.3 g/dL 6.0-8.5 L 2885-2) Albumin (test code = 1751-7) 3.0 g/dL 4.0-5.0 L Globulin, Total (test code = 2.3 g/dL 1.5-4.5 60520-6) A/G Ratio (test code = 1759-0) 1.3 1.2-2.2 Bilirubin, Total (test code = 0.5 mg/dL 0.0-1.2 1975-2) Alkaline Phosphatase (test 95 IU/L 39-117 code = 6768-6) AST (SGOT) (test code = 16 IU/L 0-40 1920-8) ALT (SGPT) (test code = 23 IU/L 0-44 1742-6) [facility] Description: Comp. Metabolic Panel (14)2019-07-04 01:03:00 Test Item Value Reference Range Interpretation Comments Glucose (test code = 2345-7) 262 mg/dL 65-99 H BUN (test code = 3094-0) 27 mg/dL 6-24 H Creatinine (test code = 1.46 mg/dL 0.76-1.27 H 2160-0) eGFR If NonAfricn Am (test 57 mL/min/1.73 >59 L code = 43374-8) eGFR If Africn Am (test code = 66 mL/min/1.73 >59 15254-1) BUN/Creatinine Ratio (test 18 9-20 code = 3097-3) Sodium (test code = 2951-2) 140 mmol/L 134-144 Potassium (test code = 2823-3) 4.4 mmol/L 3.5-5.2 Chloride (test code = 2075-0) 106 mmol/L 96-106 Carbon Dioxide, Total (test 23 mmol/L 20-29 code = 8-9) Calcium (test code = 77882-1) 8.7 mg/dL 8.7-10.2 Protein, Total (test code = 5.3 g/dL 6.0-8.5 L 2885-2) Albumin (test code = 1751-7) 3.0 g/dL 4.0-5.0 L Globulin, Total (test code = 2.3 g/dL 1.5-4.5 21799-1) A/G Ratio (test code = 1759-0) 1.3 1.2-2.2 Bilirubin, Total (test code = 0.5 mg/dL 0.0-1.2 1975-2) Alkaline Phosphatase (test 95 IU/L 39-117 code = 6768-6) AST (SGOT) (test code = 16 IU/L 0-40 1920-8) ALT (SGPT) (test code = 23 IU/L 0-44 1742-6) [facility] Description: Comp. Metabolic Panel (14)2019-07-04 01:03:00 Test Item Value Reference Range Interpretation Comments Glucose (test code = 2345-7) 262 mg/dL 65-99 H BUN (test code = 3094-0) 27 mg/dL 6-24 H Creatinine (test code = 1.46 mg/dL 0.76-1.27 H 2160-0) eGFR If NonAfricn Am (test 57 mL/min/1.73 >59 L code = 27704-8) eGFR If Africn Am (test code = 66 mL/min/1.73 >59 91369-1) BUN/Creatinine Ratio (test 18 9-20 code = 3097-3) Sodium (test code = 2951-2) 140 mmol/L 134-144 Potassium (test code = 2823-3) 4.4 mmol/L 3.5-5.2 Chloride (test code = 2075-0) 106 mmol/L 96-106 Carbon Dioxide, Total (test 23 mmol/L 20-29 code = 8-9) Calcium (test code = 24672-5) 8.7 mg/dL 8.7-10.2 Protein, Total (test code = 5.3 g/dL 6.0-8.5 L 2885-2) Albumin (test code = 1751-7) 3.0 g/dL 4.0-5.0 L Globulin, Total (test code = 2.3 g/dL 1.5-4.5 46187-1) A/G Ratio (test code = 1759-0) 1.3 1.2-2.2 Bilirubin, Total (test code = 0.5 mg/dL 0.0-1.2 1975-2) Alkaline Phosphatase (test 95 IU/L 39-117 code = 6768-6) AST (SGOT) (test code = 16 IU/L 0-40 1920-8) ALT (SGPT) (test code = 23 IU/L 0-44 1742-6) [employer] Description: Hemoglobin A1c/Hemoglobin.total in Blood 2019-04-05 09:29:00 [...] by:
[facility] ()

[facility] Description: Hemoglobin A1c/Hemoglobin.total in Blood 2019-04-05 09:29:00 Test Item Value Reference Range Interpretation Comments Hemoglobin A1c (test code 9.9 % 4.8-5.6 H = 4548-4) . Prediabetes: 5. 7 - 6.4 Diabetes : >6.4 Glycemic control for adults with diabetes: <7.0

P erformed by:
[facility] ()

[facility] Description: Hemoglobin A1c/Hemoglobin.total in Blood 2019-04-05 09:29:00 Test Item Value Reference Range Interpretation Comments Hemoglobin A1c (test code 9.9 % 4.8-5.6 H = 4548-4) . Prediabetes: 5. 7 - 6.4 Diabetes : >6.4 Glycemic control for adults with diabetes: <7.0

P erformed by:
[facility] ()

[facility] Description: Hemoglobin A1c/Hemoglobin.total in Blood 2019-04-05 09:29:00 Test Item Value Reference Range Interpretation Comments Hemoglobin A1c (test code 9.9 % 4.8-5.6 H = 4548-4) . Prediabetes: 5. 7 - 6.4 Diabetes : >6.4 Glycemic control for adults with diabetes: <7.0

P erformed by:
[facility] ()

[facility] Description: Lipid [id number] 02:47:00 Test Item Value Reference Range Interpretation Comments Cholesterol, Total (test code = 392 mg/dL 100-199 H 2093-3) Triglycerides (test code = 2571-8) 159 mg/dL 0-149 H HDL Cholesterol (test code = 42 mg/dL >39 2085-9) VLDL Cholesterol Renuka (test code = 32 mg/dL 5-40 56568-2) LDL Cholesterol Calc (test code = 318 mg/dL 0-99 H 56992-7) Comment: (test code = 61771-8) [employer] Description: Lipid [id number] 02:47:00 Test Item Value Reference Range Interpretation Comments Cholesterol, Total (test code = 392 mg/dL 100-199 H 2093-3) Triglycerides (test code = 2571-8) 159 mg/dL 0-149 H HDL Cholesterol (test code = 42 mg/dL >39 2085-9) VLDL Cholesterol Renuka (test code = 32 mg/dL 5-40 06496-7) LDL Cholesterol Calc (test code = 318 mg/dL 0-99 H 15191-9) Comment: (test code = 27704-9) [employer] [facility] Description: Lipid [id number] 02:47:00 Test Item Value Reference Range Interpretation Comments Cholesterol, Total (test code = 392 mg/dL 100-199 H 2093-3) Triglycerides (test code = 2571-8) 159 mg/dL 0-149 H HDL Cholesterol (test code = 42 mg/dL >39 2085-9) VLDL Cholesterol Renuka (test code = 32 mg/dL 5-40 71733-1) LDL Cholesterol Calc (test code = 318 mg/dL 0-99 H 96456-1) Comment: (test code = 74058-2) [employer] [facility] Description: Lipid [id number] 02:47:00 Test Item Value Reference Range Interpretation Comments Cholesterol, Total (test code = 392 mg/dL 100-199 H 2093-3) Triglycerides (test code = 2571-8) 159 mg/dL 0-149 H HDL Cholesterol (test code = 42 mg/dL >39 2085-9) VLDL Cholesterol Renuka (test code = 32 mg/dL 5-40 03676-4) LDL Cholesterol Calc (test code = 318 mg/dL 0-99 H 70519-5) Comment: (test code = 38847-2) [employer] [facility] Description: Lipid [id number] 02:47:00 Test Item Value Reference Range Interpretation Comments Cholesterol, Total (test code = 392 mg/dL 100-199 H 2093-3) Triglycerides (test code = 2571-8) 159 mg/dL 0-149 H HDL Cholesterol (test code = 42 mg/dL >39 2085-9) VLDL Cholesterol Renuka (test code = 32 mg/dL 5-40 97880-6) LDL Cholesterol Calc (test code = 318 mg/dL 0-99 H 04128-4) Comment: (test code = 63232-4) [employer] [facility] Description: Lipid [id number] 02:47:00 Test Item Value Reference Range Interpretation Comments Cholesterol, Total (test code = 392 mg/dL 100-199 H 2093-3) Triglycerides (test code = 2571-8) 159 mg/dL 0-149 H HDL Cholesterol (test code = 42 mg/dL >39 2085-9) VLDL Cholesterol Renuka (test code = 32 mg/dL 5-40 44164-5) LDL Cholesterol Calc (test code = 318 mg/dL 0-99 H 25392-3) Comment: (test code = 65329-0) [employer] [facility] Description: Lipid [id number] 02:47:00 Test Item Value Reference Range Interpretation Comments Cholesterol, Total (test code = 392 mg/dL 100-199 H 2093-3) Triglycerides (test code = 2571-8) 159 mg/dL 0-149 H HDL Cholesterol (test code = 42 mg/dL >39 2085-9) VLDL Cholesterol Renuka (test code = 32 mg/dL 5-40 37353-9) LDL Cholesterol Calc (test code = 318 mg/dL 0-99 H 12080-3) Comment: (test code = 14072-7) [employer] [facility] Description: Lipid [id number] 02:47:00 Test Item Value Reference Range Interpretation Comments Cholesterol, Total (test code = 392 mg/dL 100-199 H 2093-3) Triglycerides (test code = 2571-8) 159 mg/dL 0-149 H HDL Cholesterol (test code = 42 mg/dL >39 2085-9) VLDL Cholesterol Renuka (test code = 32 mg/dL 5-40 98748-1) LDL Cholesterol Calc (test code = 318 mg/dL 0-99 H 04921-2) Comment: (test code = 14057-4) [employer] [facility] Description: Lipid [id number] 02:47:00 Test Item Value Reference Range Interpretation Comments Cholesterol, Total (test code = 392 mg/dL 100-199 H 2093-3) Triglycerides (test code = 2571-8) 159 mg/dL 0-149 H HDL Cholesterol (test code = 42 mg/dL >39 2085-9) VLDL Cholesterol Renuka (test code = 32 mg/dL 5-40 30112-2) LDL Cholesterol Calc (test code = 318 mg/dL 0-99 H 87361-3) Comment: (test code = 83064-5) [employer] [facility] Description: Lipid [id number] 02:47:00 Test Item Value Reference Range Interpretation Comments Cholesterol, Total (test code = 392 mg/dL 100-199 H 2093-3) Triglycerides (test code = 2571-8) 159 mg/dL 0-149 H HDL Cholesterol (test code = 42 mg/dL >39 2085-9) VLDL Cholesterol Renuka (test code = 32 mg/dL 5-40 76070-6) LDL Cholesterol Calc (test code = 318 mg/dL 0-99 H 47085-3) Comment: (test code = 86224-7) [employer] [facility] Description: Lipid [id number] 02:47:00 Test Item Value Reference Range Interpretation Comments Cholesterol, Total (test code = 392 mg/dL 100-199 H 2093-3) Triglycerides (test code = 2571-8) 159 mg/dL 0-149 H HDL Cholesterol (test code = 42 mg/dL >39 2085-9) VLDL Cholesterol Renuka (test code = 32 mg/dL 5-40 31109-2) LDL Cholesterol Calc (test code = 318 mg/dL 0-99 H 56487-1) Comment: (test code = 22145-1) [employer] [facility] Description: Lipid [id number] 02:47:00 Test Item Value Reference Range Interpretation Comments Cholesterol, Total (test code = 392 mg/dL 100-199 H 2093-3) Triglycerides (test code = 2571-8) 159 mg/dL 0-149 H HDL Cholesterol (test code = 42 mg/dL >39 2085-9) VLDL Cholesterol Renuka (test code = 32 mg/dL 5-40 68974-0) LDL Cholesterol Calc (test code = 318 mg/dL 0-99 H 25895-7) Comment: (test code = 24933-2) [employer] [facility] Description: Lipid [id number] 02:47:00 Test Item Value Reference Range Interpretation Comments Cholesterol, Total (test code = 392 mg/dL 100-199 H 2093-3) Triglycerides (test code = 2571-8) 159 mg/dL 0-149 H HDL Cholesterol (test code = 42 mg/dL >39 2085-9) VLDL Cholesterol Renuka (test code = 32 mg/dL 5-40 88986-0) LDL Cholesterol Calc (test code = 318 mg/dL 0-99 H 09243-4) Comment: (test code = 84287-4) [employer] [facility] Description: Lipid [id number] 02:47:00 Test Item Value Reference Range Interpretation Comments Cholesterol, Total (test code = 392 mg/dL 100-199 H 2093-3) Triglycerides (test code = 2571-8) 159 mg/dL 0-149 H HDL Cholesterol (test code = 42 mg/dL >39 2085-9) VLDL Cholesterol Renuka (test code = 32 mg/dL 5-40 98221-8) LDL Cholesterol Calc (test code = 318 mg/dL 0-99 H 95490-8) Comment: (test code = 13641-1) [employer] [facility] Description: Lipid [id number] 02:47:00 Test Item Value Reference Range Interpretation Comments Cholesterol, Total (test code = 392 mg/dL 100-199 H 2093-3) Triglycerides (test code = 2571-8) 159 mg/dL 0-149 H HDL Cholesterol (test code = 42 mg/dL >39 2085-9) VLDL Cholesterol Renuka (test code = 32 mg/dL 5-40 95546-1) LDL Cholesterol Calc (test code = 318 mg/dL 0-99 H 12051-6) Comment: (test code = 79401-3) [employer] [facility] Description: Lipid [id number] 02:47:00 Test Item Value Reference Range Interpretation Comments Cholesterol, Total (test code = 392 mg/dL 100-199 H 2093-3) Triglycerides (test code = 2571-8) 159 mg/dL 0-149 H HDL Cholesterol (test code = 42 mg/dL >39 2085-9) VLDL Cholesterol Renuka (test code = 32 mg/dL 5-40 75796-4) LDL Cholesterol Calc (test code = 318 mg/dL 0-99 H 47174-8) Comment: (test code = 58522-4) [employer] [facility] Description: Lipid [id number] 02:47:00 Test Item Value Reference Range Interpretation Comments Cholesterol, Total (test code = 392 mg/dL 100-199 H 2093-3) Triglycerides (test code = 2571-8) 159 mg/dL 0-149 H HDL Cholesterol (test code = 42 mg/dL >39 2085-9) VLDL Cholesterol Renuka (test code = 32 mg/dL 5-40 71683-9) LDL Cholesterol Calc (test code = 318 mg/dL 0-99 H 81788-6) Comment: (test code = 35063-8) [employer] Description: Lipid [id number] 02:47:00 Test Item Value Reference Range Interpretation Comments Cholesterol, Total (test code = 392 mg/dL 100-199 H 2093-3) Triglycerides (test code = 2571-8) 159 mg/dL 0-149 H HDL Cholesterol (test code = 42 mg/dL >39 2085-9) VLDL Cholesterol Renuka (test code = 32 mg/dL 5-40 05547-5) LDL Cholesterol Calc (test code = 318 mg/dL 0-99 H 79060-1) Comment: (test code = 27189-3) [facility] Description: Lipid [id number] 02:47:00 Test Item Value Reference Range Interpretation Comments Cholesterol, Total (test code = 392 mg/dL 100-199 H 2093-3) Triglycerides (test code = 2571-8) 159 mg/dL 0-149 H HDL Cholesterol (test code = 42 mg/dL >39 2085-9) VLDL Cholesterol Renuka (test code = 32 mg/dL 5-40 18577-2) LDL Cholesterol Calc (test code = 318 mg/dL 0-99 H 34019-6) Comment: (test code = 96572-4) [employer] Description: Lipid [id number] 02:47:00 Test Item Value Reference Range Interpretation Comments Cholesterol, Total (test code = 392 mg/dL 100-199 H 2093-3) Triglycerides (test code = 2571-8) 159 mg/dL 0-149 H HDL Cholesterol (test code = 42 mg/dL >39 2085-9) VLDL Cholesterol Renuka (test code = 32 mg/dL 5-40 36872-4) LDL Cholesterol Calc (test code = 318 mg/dL 0-99 H 19486-9) Comment: (test code = 41963-3) [employer] Description: Lipid [id number] 02:47:00 Test Item Value Reference Range Interpretation Comments Cholesterol, Total (test code = 392 mg/dL 100-199 H 2093-3) Triglycerides (test code = 2571-8) 159 mg/dL 0-149 H HDL Cholesterol (test code = 42 mg/dL >39 2085-9) VLDL Cholesterol Renuka (test code = 32 mg/dL 5-40 39288-3) LDL Cholesterol Calc (test code = 318 mg/dL 0-99 H 57498-6) Comment: (test code = 80648-2) [employer] [facility] Description: Lipid [id number] 02:47:00 Test Item Value Reference Range Interpretation Comments Cholesterol, Total (test code = 392 mg/dL 100-199 H 2093-3) Triglycerides (test code = 2571-8) 159 mg/dL 0-149 H HDL Cholesterol (test code = 42 mg/dL >39 2085-9) VLDL Cholesterol Renuka (test code = 32 mg/dL 5-40 70787-8) LDL Cholesterol Calc (test code = 318 mg/dL 0-99 H 79571-0) Comment: (test code = 83470-8) [employer] [facility] Description: Lipid [id number] 02:47:00 Test Item Value Reference Range Interpretation Comments Cholesterol, Total (test code = 392 mg/dL 100-199 H 2093-3) Triglycerides (test code = 2571-8) 159 mg/dL 0-149 H HDL Cholesterol (test code = 42 mg/dL >39 2085-9) VLDL Cholesterol Renuka (test code = 32 mg/dL 5-40 41030-5) LDL Cholesterol Calc (test code = 318 mg/dL 0-99 H 41625-8) Comment: (test code = 70692-7) [employer] Description: Lipid [id number] 02:47:00 Test Item Value Reference Range Interpretation Comments Cholesterol, Total (test code = 392 mg/dL 100-199 H 2093-3) Triglycerides (test code = 2571-8) 159 mg/dL 0-149 H HDL Cholesterol (test code = 42 mg/dL >39 2085-9) VLDL Cholesterol Renuka (test code = 32 mg/dL 5-40 36772-7) LDL Cholesterol Calc (test code = 318 mg/dL 0-99 H 23018-7) Comment: (test code = 38736-4) [employer] [facility] Description: Lipid [id number] 02:47:00 Test Item Value Reference Range Interpretation Comments Cholesterol, Total (test code = 392 mg/dL 100-199 H 2093-3) Triglycerides (test code = 2571-8) 159 mg/dL 0-149 H HDL Cholesterol (test code = 42 mg/dL >39 2085-9) VLDL Cholesterol Renuka (test code = 32 mg/dL 5-40 58208-7) LDL Cholesterol Calc (test code = 318 mg/dL 0-99 H 60061-0) Comment: (test code = 99586-5) [employer] [facility] Description: Lipid [id number] 02:47:00 Test Item Value Reference Range Interpretation Comments Cholesterol, Total (test code = 392 mg/dL 100-199 H 2093-3) Triglycerides (test code = 2571-8) 159 mg/dL 0-149 H HDL Cholesterol (test code = 42 mg/dL >39 2085-9) VLDL Cholesterol Renuka (test code = 32 mg/dL 5-40 36338-1) LDL Cholesterol Calc (test code = 318 mg/dL 0-99 H 20707-4) Comment: (test code = 34227-3) [employer] [facility] Description: Lipid [id number] 02:47:00 Test Item Value Reference Range Interpretation Comments Cholesterol, Total (test code = 392 mg/dL 100-199 H 2093-3) Triglycerides (test code = 2571-8) 159 mg/dL 0-149 H HDL Cholesterol (test code = 42 mg/dL >39 2085-9) VLDL Cholesterol Renuka (test code = 32 mg/dL 5-40 38464-8) LDL Cholesterol Calc (test code = 318 mg/dL 0-99 H 13983-9) Comment: (test code = 91870-2) [facility] Description: Comp. Metabolic Panel (14)2019-04-05 02:37:00 Test Item Value Reference Range Interpretation Comments Glucose (test code = 219 mg/dL 65-99 H 2345-7) BUN (test code = 44 mg/dL 6-24 H 3094-0) Creatinine (test code 1.51 mg/dL 0.76-1.27 H = 2160-0) eGFR If NonAfricn Am 55 mL/min/1.73 >59 L (test code = 22397-1) eGFR If Africn Am 64 mL/min/1.73 >59 (test code = 78431-7) BUN/Creatinine Ratio 29 9-20 H (test code = 3097-3) Sodium (test code = 139 mmol/L 993-194 2150-2) Potassium (test code 4.4 mmol/L 3.5-5.2 = 2823-3) Chloride (test code = 99 mmol/L 96-106 2075-0) Carbon Dioxide, Total 28 mmol/L 20-29 (test code = 8-9) Calcium (test code = 8.9 mg/dL 8.7-10.2 58491-6) Protein, Total (test 6.1 g/dL 6.0-8.5 code [...] Total (test 2.8 g/dL 1.5-4.5 code = 75515-7) A/G Ratio (test code 1.2 1.2-2.2 = 1759-0) Bilirubin, Total 0.5 mg/dL 0.0-1.2 (test code = 1975-2) Alkaline Phosphatase 100 IU/L 39-117 (test code = 6768-6) AST (SGOT) (test code 22 IU/L 0-40 = 1920-8) ALT (SGPT) (test code 27 IU/L 0-44 = 1742-6) [facility] Description: Comp. Metabolic Panel (14)2019-04-05 02:37:00 Test Item Value Reference Range Interpretation Comments Glucose (test code = 219 mg/dL 65-99 H 2345-7) BUN (test code = 44 mg/dL 6-24 H 3094-0) Creatinine (test code 1.51 mg/dL 0.76-1.27 H = 2160-0) eGFR If NonAfricn Am 55 mL/min/1.73 >59 L (test code = 57929-5) eGFR If Africn Am 64 mL/min/1.73 >59 (test code = 94154-4) BUN/Creatinine Ratio 29 9-20 H (test code = 3097-3) Sodium (test code = 139 mmol/L 073-986 4584-2) Potassium (test code 4.4 mmol/L 3.5-5.2 = 2823-3) Chloride (test code = 99 mmol/L 96-106 2075-0) Carbon Dioxide, Total 28 mmol/L 20-29 (test code = 2027-9) Calcium (test code = 8.9 mg/dL 8.7-10.2 66698-0) Protein, Total (test 6.1 g/dL 6.0-8.5 code [...] Total (test 2.8 g/dL 1.5-4.5 code = 50452-2) A/G Ratio (test code 1.2 1.2-2.2 = [...] 55 mL/min/1.73 >59 L (test code = 43779-6) eGFR If Africn Am 64 mL/min/1.73 >59 (test code = 86567-3) BUN/Creatinine Ratio 29 9-20 H (test code = 3097-3) Sodium (test code = 139 mmol/L 738-592 6428-2) Potassium (test code 4.4 mmol/L 3.5-5.2 = 2823-3) Chloride (test code = 99 mmol/L 96-106 2075-0) Carbon Dioxide, Total 28 mmol/L 20-29 (test code = 2027-9) Calcium (test code = 8.9 mg/dL 8.7-10.2 44455-2) Protein, Total (test 6.1 g/dL 6.0-8.5 code [...] Total (test 2.8 g/dL 1.5-4.5 code = 58817-1) A/G Ratio (test code 1.2 1.2-2.2 = 1759-0) Bilirubin, Total 0.5 mg/dL 0.0-1.2 (test code = 1974-2) Alkaline Phosphatase 100 IU/L 39-117 (test code = 6768-6) AST (SGOT) (test code 22 IU/L 0-40 = 1920-8) ALT (SGPT) (test code 27 IU/L 0-44 = 1742-6) [facility] Description: Comp. Metabolic Panel (14)2019-04-05 02:37:00 Test Item Value Reference Range Interpretation Comments Glucose (test code = 219 mg/dL 65-99 H 2345-7) BUN (test code = 44 mg/dL 6-24 H 3094-0) Creatinine (test code 1.51 mg/dL 0.76-1.27 H = 2160-0) eGFR If NonAfricn Am 55 mL/min/1.73 >59 L (test code = 99568-4) eGFR If Africn Am 64 mL/min/1.73 >59 (test code = 97362-6) BUN/Creatinine Ratio 29 9-20 H (test code = 3097-3) Sodium (test code = 139 mmol/L 126-477 4701-2) Potassium (test code 4.4 mmol/L 3.5-5.2 = 2823-3) Chloride (test code = 99 mmol/L 96-106 2075-0) Carbon Dioxide, Total 28 mmol/L 20-29 (test code = 2027-9) Calcium (test code = 8.9 mg/dL 8.7-10.2 01369-6) Protein, Total (test 6.1 g/dL 6.0-8.5 code [...] Total (test 2.8 g/dL 1.5-4.5 code = 13045-7) A/G Ratio (test code 1.2 1.2-2.2 = [...] 55 mL/min/1.73 >59 L (test code = 35130-6) eGFR If Africn Am 64 mL/min/1.73 >59 (test code = 05981-5) BUN/Creatinine Ratio 29 9-20 H (test code = 3097-3) Sodium (test code = 139 mmol/L 683-329 8020-2) Potassium (test code 4.4 mmol/L 3.5-5.2 = 2823-3) Chloride (test code = 99 mmol/L 96-106 2075-0) Carbon Dioxide, Total 28 mmol/L 20-29 (test code = 8-9) Calcium (test code = 8.9 mg/dL 8.7-10.2 10439-1) Protein, Total (test 6.1 g/dL 6.0-8.5 code [...] Total (test 2.8 g/dL 1.5-4.5 code = 45240-8) A/G Ratio (test code 1.2 1.2-2.2 = 1759-0) Bilirubin, Total 0.5 mg/dL 0.0-1.2 (test code = 1974-2) Alkaline Phosphatase 100 IU/L 39-117 (test code = 6768-6) AST (SGOT) (test code 22 IU/L 0-40 = 1920-8) ALT (SGPT) (test code 27 IU/L 0-44 = 1742-6) Access [facility] Description: Comp. Metabolic Panel (2019-04-05 02:37:00 Test Item Value Reference Range Interpretation Comments Glucose (test code = 219 mg/dL 65-99 H 2345-7) BUN (test code = 44 mg/dL 6-24 H 3094-0) Creatinine (test code 1.51 mg/dL 0.76-1.27 H = 2160-0) eGFR If NonAfricn Am 55 mL/min/1.73 >59 L (test code = 68580-4) eGFR If Africn Am 64 mL/min/1.73 >59 (test code = 83637-5) BUN/Creatinine Ratio 29 9-20 H (test code = 3097-3) Sodium (test code = 139 mmol/L 323-335 8774-2) Potassium (test code 4.4 mmol/L 3.5-5.2 = 2823-3) Chloride (test code = 99 mmol/L 96-106 2075-0) Carbon Dioxide, Total 28 mmol/L 20-29 (test code = 2027-9) Calcium (test code = 8.9 mg/dL 8.7-10.2 07576-4) Protein, Total (test 6.1 g/dL 6.0-8.5 code [...] Total (test 2.8 g/dL 1.5-4.5 code = 94157-1) A/G Ratio (test code 1.2 1.2-2.2 = 1759-0) Bilirubin, Total 0.5 mg/dL 0.0-1.2 (test code = 1975-2) Alkaline Phosphatase 100 IU/L 39-117 (test code = 6768-6) AST (SGOT) (test code 22 IU/L 0-40 = 1920-8) ALT (SGPT) (test code 27 IU/L 0-44 = 1742-6) [facility] (2019-04-05 02:37:00 Test Item Value Reference Range Interpretation Comments Glucose (test code = 219 mg/dL 65-99 H 2345-7) BUN (test code = 44 mg/dL 6-24 H 3094-0) Creatinine (test code 1.51 mg/dL 0.76-1.27 H = 2160-0) eGFR If NonAfricn Am 55 mL/min/1.73 >59 L (test code = 79911-1) eGFR If Africn Am 64 mL/min/1.73 >59 (test code = 97014-0) BUN/Creatinine Ratio 29 9-20 H (test code = 3097-3) Sodium (test code = 139 mmol/L 260-838 6801-2) Potassium (test code 4.4 mmol/L 3.5-5.2 = 2823-3) Chloride (test code = 99 mmol/L 96-106 5-0) Carbon Dioxide, Total 28 mmol/L 20-29 (test code = 2027-9) Calcium (test code = 8.9 mg/dL 8.7-10.2 87197-9) Protein, Total (test 6.1 g/dL 6.0-8.5 code [...] Total (test 2.8 g/dL 1.5-4.5 code = 70890-7) A/G Ratio (test code 1.2 1.2-2.2 = 1759-0) Bilirubin, Total 0.5 mg/dL 0.0-1.2 (test code = 1974-2) Alkaline Phosphatase 100 IU/L 39-117 (test code = 6768-6) AST (SGOT) (test code 22 IU/L 0-40 = 1920-8) ALT (SGPT) (test code 27 IU/L 0-44 = 1742-6) [facility] Description: Comp. Metabolic Panel (14)2019-04-05 02:37:00 Test Item Value Reference Range Interpretation Comments Glucose (test code = 219 mg/dL 65-99 H 2345-7) BUN (test code = 44 mg/dL 6-24 H 3094-0) Creatinine (test code 1.51 mg/dL 0.76-1.27 H = 2160-0) eGFR If NonAfricn Am 55 mL/min/1.73 >59 L (test code = 38613-4) eGFR If Africn Am 64 mL/min/1.73 >59 (test code = 58077-8) BUN/Creatinine Ratio 29 9-20 H (test code = 3097-3) Sodium (test code = 139 mmol/L 102-528 1894-2) Potassium (test code 4.4 mmol/L 3.5-5.2 = 2823-3) Chloride (test code = 99 mmol/L 96-106 2075-0) Carbon Dioxide, Total 28 mmol/L 20-29 (test code = 2027-) Calcium (test code = 8.9 mg/dL 8.7-10.2 00244-9) Protein, Total (test 6.1 g/dL 6.0-8.5 code [...] Total (test 2.8 g/dL 1.5-4.5 code = 93029-9) A/G Ratio (test code 1.2 1.2-2.2 = 1759-0) Bilirubin, Total 0.5 mg/dL 0.0-1.2 (test code = 1975-2) Alkaline Phosphatase 100 IU/L 39-117 (test code = 6768-6) AST (SGOT) (test code 22 IU/L 0-40 = 1920-8) ALT (SGPT) (test code 27 IU/L 0-44 = 1742-6) [facility] (2019-04-05 02:37:00 Test Item Value Reference Range Interpretation Comments Glucose (test code = 219 mg/dL 65-99 H 2345-7) BUN (test code = 44 mg/dL 6-24 H 3094-0) Creatinine (test code 1.51 mg/dL 0.76-1.27 H = 2160-0) eGFR If NonAfricn Am 55 mL/min/1.73 >59 L (test code = 38253-8) eGFR If Africn Am 64 mL/min/1.73 >59 (test code = 95780-4) BUN/Creatinine Ratio 29 9-20 H (test code = 3097-3) Sodium (test code = 139 mmol/L 278-367 7188-2) Potassium (test code 4.4 mmol/L 3.5-5.2 = 2823-3) Chloride (test code = 99 mmol/L 96-106 2075-0) Carbon Dioxide, Total 28 mmol/L 20-29 (test code = 2027-9) Calcium (test code = 8.9 mg/dL 8.7-10.2 86883-4) Protein, Total (test 6.1 g/dL 6.0-8.5 code [...] Total (test 2.8 g/dL 1.5-4.5 code = 69734-8) A/G Ratio (test code 1.2 1.2-2.2 = 1759-0) Bilirubin, Total 0.5 mg/dL 0.0-1.2 (test code = 1975-2) Alkaline Phosphatase 100 IU/L 39-117 (test code = 6768-6) AST (SGOT) (test code 22 IU/L 0-40 = 1920-8) ALT (SGPT) (test code 27 IU/L 0-44 = 1742-6) [facility] Description: Comp. Metabolic Panel (14)2019-04-05 02:37:00 Test Item Value Reference Range Interpretation Comments Glucose (test code = 219 mg/dL 65-99 H 2345-7) BUN (test code = 44 mg/dL 6-24 H 3094-0) Creatinine (test code 1.51 mg/dL 0.76-1.27 H = 2160-0) eGFR If NonAfricn Am 55 mL/min/1.73 >59 L (test code = 64499-8) eGFR If Africn Am 64 mL/min/1.73 >59 (test code = 87062-1) BUN/Creatinine Ratio 29 9-20 H (test code = 3097-3) Sodium (test code = 139 mmol/L 075-893 0041-2) Potassium (test code 4.4 mmol/L 3.5-5.2 = 2823-3) Chloride (test code = 99 mmol/L 96-106 2075-0) Carbon Dioxide, Total 28 mmol/L 20-29 (test code = 2027-9) Calcium (test code = 8.9 mg/dL 8.7-10.2 22530-0) Protein, Total (test 6.1 g/dL 6.0-8.5 code [...] Total (test 2.8 g/dL 1.5-4.5 code = 89215-1) A/G Ratio (test code 1.2 1.2-2.2 = [...] 55 mL/min/1.73 >59 L (test code = 13678-0) eGFR If Africn Am 64 mL/min/1.73 >59 (test code = 93955-6) BUN/Creatinine Ratio 29 9-20 H (test code = 3097-3) Sodium (test code = 139 mmol/L 230-522 1377-2) Potassium (test code 4.4 mmol/L 3.5-5.2 = 2823-3) Chloride (test code = 99 mmol/L 96-106 2075-0) Carbon Dioxide, Total 28 mmol/L 20-29 (test code = 2027-9) Calcium (test code = 8.9 mg/dL 8.7-10.2 79116-8) Protein, Total (test 6.1 g/dL 6.0-8.5 code [...] Total (test 2.8 g/dL 1.5-4.5 code = 38112-3) A/G Ratio (test code 1.2 1.2-2.2 = 1759-0) Bilirubin, Total 0.5 mg/dL 0.0-1.2 (test code = 1975-2) Alkaline Phosphatase 100 IU/L 39-117 (test code = 6768-6) AST (SGOT) (test code 22 IU/L 0-40 = 1920-8) ALT (SGPT) (test code 27 IU/L 0-44 = 1742-6) [facility] Description: Comp. Metabolic Panel (14)2019-04-05 02:37:00 Test Item Value Reference Range Interpretation Comments Glucose (test code = 219 mg/dL 65-99 H 2345-7) BUN (test code = 44 mg/dL 6-24 H 3094-0) Creatinine (test code 1.51 mg/dL 0.76-1.27 H = 2160-0) eGFR If NonAfricn Am 55 mL/min/1.73 >59 L (test code = 00544-7) eGFR If Africn Am 64 mL/min/1.73 >59 (test code = 14704-9) BUN/Creatinine Ratio 29 9-20 H (test code = 3097-3) Sodium (test code = 139 mmol/L 757-322 4937-2) Potassium (test code 4.4 mmol/L 3.5-5.2 = 2823-3) Chloride (test code = 99 mmol/L 96-106 5-0) Carbon Dioxide, Total 28 mmol/L 20-29 (test code = 2027-9) Calcium (test code = 8.9 mg/dL 8.7-10.2 71154-7) Protein, Total (test 6.1 g/dL 6.0-8.5 code [...] Total (test 2.8 g/dL 1.5-4.5 code = 17084-9) A/G Ratio (test code 1.2 1.2-2.2 = 1759-0) Bilirubin, Total 0.5 mg/dL 0.0-1.2 (test code = 1975-2) Alkaline Phosphatase 100 IU/L 39-117 (test code = 6768-6) AST (SGOT) (test code 22 IU/L 0-40 = 1920-8) ALT (SGPT) (test code 27 IU/L 0-44 = 1742-6) [facility] Description: Comp. Metabolic Panel (14)2019-04-05 02:37:00 Test Item Value Reference Range Interpretation Comments Glucose (test code = 219 mg/dL 65-99 H 2345-7) BUN (test code = 44 mg/dL 6-24 H 3094-0) Creatinine (test code 1.51 mg/dL 0.76-1.27 H = 2160-0) eGFR If NonAfricn Am 55 mL/min/1.73 >59 L (test code = 68192-6) eGFR If Africn Am 64 mL/min/1.73 >59 (test code = 01589-6) BUN/Creatinine Ratio 29 9-20 H (test code = 3097-3) Sodium (test code = 139 mmol/L 184-902 7706-2) Potassium (test code 4.4 mmol/L 3.5-5.2 = 2823-3) Chloride (test code = 99 mmol/L 96-106 2075-0) Carbon Dioxide, Total 28 mmol/L 20-29 (test code = 2027-) Calcium (test code = 8.9 mg/dL 8.7-10.2 60723-8) Protein, Total (test 6.1 g/dL 6.0-8.5 code [...] Total (test 2.8 g/dL 1.5-4.5 code = 37472-3) A/G Ratio (test code 1.2 1.2-2.2 = 1759-0) Bilirubin, Total 0.5 mg/dL 0.0-1.2 (test code = 1975-2) Alkaline Phosphatase 100 IU/L 39-117 (test code = 6768-6) AST (SGOT) (test code 22 IU/L 0-40 = 1920-8) ALT (SGPT) (test code 27 IU/L 0-44 = 1742-6) [facility] Description: Comp. Metabolic Panel (14)2019-04-05 02:37:00 Test Item Value Reference Range Interpretation Comments Glucose (test code = 219 mg/dL 65-99 H 2345-7) BUN (test code = 44 mg/dL 6-24 H 3094-0) Creatinine (test code 1.51 mg/dL 0.76-1.27 H = 2160-0) eGFR If NonAfricn Am 55 mL/min/1.73 >59 L (test code = 24641-9) eGFR If Africn Am 64 mL/min/1.73 >59 (test code = 79950-0) BUN/Creatinine Ratio 29 9-20 H (test code = 3097-3) Sodium (test code = 139 mmol/L 266-668 4502-2) Potassium (test code 4.4 mmol/L 3.5-5.2 = 2823-3) Chloride (test code = 99 mmol/L 96-106 2075-0) Carbon Dioxide, Total 28 mmol/L 20-29 (test code = 2027-9) Calcium (test code = 8.9 mg/dL 8.7-10.2 25542-1) Protein, Total (test 6.1 g/dL 6.0-8.5 code [...] Total (test 2.8 g/dL 1.5-4.5 code = 22368-8) A/G Ratio (test code 1.2 1.2-2.2 = 1759-0) Bilirubin, Total 0.5 mg/dL 0.0-1.2 (test code = 1974-2) Alkaline Phosphatase 100 IU/L 39-117 (test code = 6768-6) AST (SGOT) (test code 22 IU/L 0-40 = 1920-8) ALT (SGPT) (test code 27 IU/L 0-44 = 1742-6) [facility] Description: Comp. Metabolic Panel (142019-04-05 02:37:00 Test Item Value Reference Range Interpretation Comments Glucose (test code = 219 mg/dL 65-99 H 2345-7) BUN (test code = 44 mg/dL 6-24 H 3094-0) Creatinine (test code 1.51 mg/dL 0.76-1.27 H = 2160-0) eGFR If NonAfricn Am 55 mL/min/1.73 >59 L (test code = 24592-0) eGFR If Africn Am 64 mL/min/1.73 >59 (test code = 79541-9) BUN/Creatinine Ratio 29 9-20 H (test code = 3097-3) Sodium (test code = 139 mmol/L 695-771 8358-2) Potassium (test code 4.4 mmol/L 3.5-5.2 = 2823-3) Chloride (test code = 99 mmol/L 96-106 5-0) Carbon Dioxide, Total 28 mmol/L 20-29 (test code = 2027-9) Calcium (test code = 8.9 mg/dL 8.7-10.2 40940-9) Protein, Total (test 6.1 g/dL 6.0-8.5 code [...] Total (test 2.8 g/dL 1.5-4.5 code = 89527-5) A/G Ratio (test code 1.2 1.2-2.2 = 1759-0) Bilirubin, Total 0.5 mg/dL 0.0-1.2 (test code = 1975-2) Alkaline Phosphatase 100 IU/L 39-117 (test code = 6768-6) AST (SGOT) (test code 22 IU/L 0-40 = 1920-8) ALT (SGPT) (test code 27 IU/L 0-44 = 1742-6) [facility] Description: Comp. Metabolic Panel (14)2019-04-05 02:37:00 Test Item Value Reference Range Interpretation Comments Glucose (test code = 219 mg/dL 65-99 H 2345-7) BUN (test code = 44 mg/dL 6-24 H 3094-0) Creatinine (test code 1.51 mg/dL 0.76-1.27 H = 2160-0) eGFR If NonAfricn Am 55 mL/min/1.73 >59 L (test code = 78661-6) eGFR If Africn Am 64 mL/min/1.73 >59 (test code = 70450-5) BUN/Creatinine Ratio 29 9-20 H (test code = 3097-3) Sodium (test code = 139 mmol/L 673-413 2395-2) Potassium (test code 4.4 mmol/L 3.5-5.2 = 2823-3) Chloride (test code = 99 mmol/L 96-106 2075-0) Carbon Dioxide, Total 28 mmol/L 20-29 (test code = 2027-9) Calcium (test code = 8.9 mg/dL 8.7-10.2 41471-4) Protein, Total (test 6.1 g/dL 6.0-8.5 code [...] Total (test 2.8 g/dL 1.5-4.5 code = 47560-3) A/G Ratio (test code 1.2 1.2-2.2 = 1759-0) Bilirubin, Total 0.5 mg/dL 0.0-1.2 (test code = 1975-2) Alkaline Phosphatase 100 IU/L 39-117 (test code = 6768-6) AST (SGOT) (test code 22 IU/L 0-40 = 1920-8) ALT (SGPT) (test code 27 IU/L 0-44 = 1742-6) [facility] Description: Comp. Metabolic Panel (142019-04-05 02:37:00 Test Item Value Reference Range Interpretation Comments Glucose (test code = 219 mg/dL 65-99 H 2345-7) BUN (test code = 44 mg/dL 6-24 H 3094-0) Creatinine (test code 1.51 mg/dL 0.76-1.27 H = 2160-0) eGFR If NonAfricn Am 55 mL/min/1.73 >59 L (test code = 57004-5) eGFR If Africn Am 64 mL/min/1.73 >59 (test code = 53445-3) BUN/Creatinine Ratio 29 9-20 H (test code = 3097-3) Sodium (test code = 139 mmol/L 150-889 1915-2) Potassium (test code 4.4 mmol/L 3.5-5.2 = 2823-3) Chloride (test code = 99 mmol/L 96-106 2074-0) Carbon Dioxide, Total 28 mmol/L 20-29 (test code = 2027-) Calcium (test code = 8.9 mg/dL 8.7-10.2 21681-1) Protein, Total (test 6.1 g/dL 6.0-8.5 code [...] Total (test 2.8 g/dL 1.5-4.5 code = 70727-6) A/G Ratio (test code 1.2 1.2-2.2 = 1759-0) Bilirubin, Total 0.5 mg/dL 0.0-1.2 (test code = 1974-2) Alkaline Phosphatase 100 IU/L 39-117 (test code = 6768-6) AST (SGOT) (test code 22 IU/L 0-40 = 1920-8) ALT (SGPT) (test code 27 IU/L 0-44 = 1742-6) [facility] Description: Comp. Metabolic Panel (14)2019-04-05 02:37:00 Test Item Value Reference Range Interpretation Comments Glucose (test code = 219 mg/dL 65-99 H 2345-7) BUN (test code = 44 mg/dL 6-24 H 3094-0) Creatinine (test code 1.51 mg/dL 0.76-1.27 H = 2160-0) eGFR If NonAfricn Am 55 mL/min/1.73 >59 L (test code = 61842-6) eGFR If Africn Am 64 mL/min/1.73 >59 (test code = 22093-8) BUN/Creatinine Ratio 29 9-20 H (test code = 3097-3) Sodium (test code = 139 mmol/L 754-105 4500-2) Potassium (test code 4.4 mmol/L 3.5-5.2 = 2823-3) Chloride (test code = 99 mmol/L 96-106 2075-0) Carbon Dioxide, Total 28 mmol/L 20-29 (test code = 2027-9) Calcium (test code = 8.9 mg/dL 8.7-10.2 81467-1) Protein, Total (test 6.1 g/dL 6.0-8.5 code [...] Total (test 2.8 g/dL 1.5-4.5 code = 92583-6) A/G Ratio (test code 1.2 1.2-2.2 = 1759-0) Bilirubin, Total 0.5 mg/dL 0.0-1.2 (test code = 1975-2) Alkaline Phosphatase 100 IU/L 39-117 (test code = 6768-6) AST (SGOT) (test code 22 IU/L 0-40 = 1920-8) ALT (SGPT) (test code 27 IU/L 0-44 = 1742-6) [facility] Description: Comp. Metabolic Panel (14)2019-04-05 02:37:00 Test Item Value Reference Range Interpretation Comments Glucose (test code = 219 mg/dL 65-99 H 2345-7) BUN (test code = 44 mg/dL 6-24 H 3094-0) Creatinine (test code 1.51 mg/dL 0.76-1.27 H = 2160-0) eGFR If NonAfricn Am 55 mL/min/1.73 >59 L (test code = 58247-7) eGFR If Africn Am 64 mL/min/1.73 >59 (test code = 91929-6) BUN/Creatinine Ratio 29 9-20 H (test code = 3097-3) Sodium (test code = 139 mmol/L 602-961 4978-2) Potassium (test code 4.4 mmol/L 3.5-5.2 = 2823-3) Chloride (test code = 99 mmol/L 96-106 2074-0) Carbon Dioxide, Total 28 mmol/L 20-29 (test code = 2027-) Calcium (test code = 8.9 mg/dL 8.7-10.2 00047-2) Protein, Total (test 6.1 g/dL 6.0-8.5 code [...] Total (test 2.8 g/dL 1.5-4.5 code = 66928-0) A/G Ratio (test code 1.2 1.2-2.2 = 1759-0) Bilirubin, Total 0.5 mg/dL 0.0-1.2 (test code = 1974-) Alkaline Phosphatase 100 IU/L 39-117 (test code = 6768-6) AST (SGOT) (test code 22 IU/L 0-40 = 1920-8) ALT (SGPT) (test code 27 IU/L 0-44 = 1742-6) [facility] Description: Comp. Metabolic Panel (14)2019-04-05 02:37:00 Test Item Value Reference Range Interpretation Comments Glucose (test code = 219 mg/dL 65-99 H 2345-7) BUN (test code = 44 mg/dL 6-24 H 3094-0) Creatinine (test code 1.51 mg/dL 0.76-1.27 H = 2160-0) eGFR If NonAfricn Am 55 mL/min/1.73 >59 L (test code = 81838-9) eGFR If Africn Am 64 mL/min/1.73 >59 (test code = 92912-8) BUN/Creatinine Ratio 29 9-20 H (test code = 3097-3) Sodium (test code = 139 mmol/L 864-923 6173-2) Potassium (test code 4.4 mmol/L 3.5-5.2 = 2823-3) Chloride (test code = 99 mmol/L 96-106 2075-0) Carbon Dioxide, Total 28 mmol/L 20-29 (test code = 8-9) Calcium (test code = 8.9 mg/dL 8.7-10.2 95568-1) Protein, Total (test 6.1 g/dL 6.0-8.5 code [...] Total (test 2.8 g/dL 1.5-4.5 code = 20228-8) A/G Ratio (test code 1.2 1.2-2.2 = 1759-0) Bilirubin, Total 0.5 mg/dL 0.0-1.2 (test code = 1975-2) Alkaline Phosphatase 100 IU/L 39-117 (test code = 6768-6) AST (SGOT) (test code 22 IU/L 0-40 = 1920-8) ALT (SGPT) (test code 27 IU/L 0-44 = 1742-6) [facility] Description: Comp. Metabolic Panel (14)2019-04-05 02:37:00 Test Item Value Reference Range Interpretation Comments Glucose (test code = 219 mg/dL 65-99 H 2345-7) BUN (test code = 44 mg/dL 6-24 H 3094-0) Creatinine (test code 1.51 mg/dL 0.76-1.27 H = 2160-0) eGFR If NonAfricn Am 55 mL/min/1.73 >59 L (test code = 96280-3) eGFR If Africn Am 64 mL/min/1.73 >59 (test code = 55571-7) BUN/Creatinine Ratio 29 9-20 H (test code = 3097-3) Sodium (test code = 139 mmol/L 296-323 3892-2) Potassium (test code 4.4 mmol/L 3.5-5.2 = 2823-3) Chloride (test code = 99 mmol/L 96-106 2075-0) Carbon Dioxide, Total 28 mmol/L 20-29 (test code = 2027-11) Calcium (test code = 8.9 mg/dL 8.7-10.2 53546-7) Protein, Total (test 6.1 g/dL 6.0-8.5 code [...] Total (test 2.8 g/dL 1.5-4.5 code = 09004-8) A/G Ratio (test code 1.2 1.2-2.2 = 1758-0) Bilirubin, Total 0.5 mg/dL 0.0-1.2 (test code = 1974-) Alkaline Phosphatase 100 IU/L 39-117 (test code = 6768-6) AST (SGOT) (test code 22 IU/L 0-40 = 1920-8) ALT (SGPT) (test code 27 IU/L 0-44 = 1742-6) [facility] Description: Comp. Metabolic Panel (14)2019-04-05 02:37:00 Test Item Value Reference Range Interpretation Comments Glucose (test code = 219 mg/dL 65-99 H 2345-7) BUN (test code = 44 mg/dL 6-24 H 3094-0) Creatinine (test code 1.51 mg/dL 0.76-1.27 H = 2160-0) eGFR If NonAfricn Am 55 mL/min/1.73 >59 L (test code = 10163-3) eGFR If Africn Am 64 mL/min/1.73 >59 (test code = 57766-6) BUN/Creatinine Ratio 29 9-20 H (test code = 3097-3) Sodium (test code = 139 mmol/L 354-780 6476-2) Potassium (test code 4.4 mmol/L 3.5-5.2 = 2823-3) Chloride (test code = 99 mmol/L 96-106 2075-0) Carbon Dioxide, Total 28 mmol/L 20-29 (test code = 8-9) Calcium (test code = 8.9 mg/dL 8.7-10.2 74263-8) Protein, Total (test 6.1 g/dL 6.0-8.5 code [...] Total (test 2.8 g/dL 1.5-4.5 code = 52121-2) A/G Ratio (test code 1.2 1.2-2.2 = 1759-0) Bilirubin, Total 0.5 mg/dL 0.0-1.2 (test code = 1974-2) Alkaline Phosphatase 100 IU/L 39-117 (test code = 6768-6) AST (SGOT) (test code 22 IU/L 0-40 = 1920-8) ALT (SGPT) (test code 27 IU/L 0-44 = 1742-6) [facility] Description: Comp. Metabolic Panel (14)2019-04-05 02:37:00 Test Item Value Reference Range Interpretation Comments Glucose (test code = 219 mg/dL 65-99 H 2345-7) BUN (test code = 44 mg/dL 6-24 H 3094-0) Creatinine (test code 1.51 mg/dL 0.76-1.27 H = 2160-0) eGFR If NonAfricn Am 55 mL/min/1.73 >59 L (test code = 73015-5) eGFR If Africn Am 64 mL/min/1.73 >59 (test code = 22733-2) BUN/Creatinine Ratio 29 9-20 H (test code = 3097-3) Sodium (test code = 139 mmol/L 982-518 7853-2) Potassium (test code 4.4 mmol/L 3.5-5.2 = 2823-3) Chloride (test code = 99 mmol/L 96-106 2075-0) Carbon Dioxide, Total 28 mmol/L 20-29 (test code = 2027-9) Calcium (test code = 8.9 mg/dL 8.7-10.2 62713-4) Protein, Total (test 6.1 g/dL 6.0-8.5 code [...] Total (test 2.8 g/dL 1.5-4.5 code = 44013-1) A/G Ratio (test code 1.2 1.2-2.2 = 1759-0) Bilirubin, Total 0.5 mg/dL 0.0-1.2 (test code = 1974-2) Alkaline Phosphatase 100 IU/L 39-117 (test code = 6768-6) AST (SGOT) (test code 22 IU/L 0-40 = 1920-8) ALT (SGPT) (test code 27 IU/L 0-44 = 1742-6) [facility] (14)2019-04-05 02:37:00 Test Item Value Reference Range Interpretation Comments Glucose (test code = 219 mg/dL 65-99 H 2345-7) BUN (test code = 44 mg/dL 6-24 H 3094-0) Creatinine (test code 1.51 mg/dL 0.76-1.27 H = 2160-0) eGFR If NonAfricn Am 55 mL/min/1.73 >59 L (test code = 11946-3) eGFR If Africn Am 64 mL/min/1.73 >59 (test code = 08126-3) BUN/Creatinine Ratio 29 9-20 H (test code = 3097-3) Sodium (test code = 139 mmol/L 629-117 3405-2) Potassium (test code 4.4 mmol/L 3.5-5.2 = 2823-3) Chloride (test code = 99 mmol/L 96-106 2075-0) Carbon Dioxide, Total 28 mmol/L 20-29 (test code = 2027-9) Calcium (test code = 8.9 mg/dL 8.7-10.2 77970-3) Protein, Total (test 6.1 g/dL 6.0-8.5 code [...] Total (test 2.8 g/dL 1.5-4.5 code = 01760-8) A/G Ratio (test code 1.2 1.2-2.2 = 1759-0) Bilirubin, Total 0.5 mg/dL 0.0-1.2 (test code = 1974-2) Alkaline Phosphatase 100 IU/L 39-117 (test code = 6768-6) AST (SGOT) (test code 22 IU/L 0-40 = 1920-8) ALT (SGPT) (test code 27 IU/L 0-44 = 1742-6) [facility] Description: Comp. Metabolic Panel (14)2019-04-05 02:37:00 Test Item Value Reference Range Interpretation Comments Glucose (test code = 219 mg/dL 65-99 H 2345-7) BUN (test code = 44 mg/dL 6-24 H 3094-0) Creatinine (test code 1.51 mg/dL 0.76-1.27 H = 2160-0) eGFR If NonAfricn Am 55 mL/min/1.73 >59 L (test code = 06623-9) eGFR If Africn Am 64 mL/min/1.73 >59 (test code = 64303-3) BUN/Creatinine Ratio 29 9-20 H (test code = 3097-3) Sodium (test code = 139 mmol/L 606-862 7523-2) Potassium (test code 4.4 mmol/L 3.5-5.2 = 2823-3) Chloride (test code = 99 mmol/L 96-106 2075-0) Carbon Dioxide, Total 28 mmol/L 20-29 (test code = 2027-9) Calcium (test code = 8.9 mg/dL 8.7-10.2 24253-3) Protein, Total (test 6.1 g/dL 6.0-8.5 code [...] Total (test 2.8 g/dL 1.5-4.5 code = 06700-3) A/G Ratio (test code 1.2 1.2-2.2 = [...] 55 mL/min/1.73 >59 L (test code = 17103-7) eGFR If Africn Am 64 mL/min/1.73 >59 (test code = 96775-8) BUN/Creatinine Ratio 29 9-20 H (test code = 3097-3) Sodium (test code = 139 mmol/L 625-948 0680-2) Potassium (test code 4.4 mmol/L 3.5-5.2 = 2823-3) Chloride (test code = 99 mmol/L 96-106 2075-0) Carbon Dioxide, Total 28 mmol/L 20-29 (test code = 8-9) Calcium (test code = 8.9 mg/dL 8.7-10.2 24803-4) Protein, Total (test 6.1 g/dL 6.0-8.5 code [...] Total (test 2.8 g/dL 1.5-4.5 code = 18627-1) A/G Ratio (test code 1.2 1.2-2.2 = 1759-0) Bilirubin, Total 0.5 mg/dL 0.0-1.2 (test code = 1974-2) Alkaline Phosphatase 100 IU/L 39-117 (test code = 6768-6) AST (SGOT) (test code 22 IU/L 0-40 = 1920-8) ALT (SGPT) (test code 27 IU/L 0-44 = 1742-6) Access [facility] Description: Comp. Metabolic Panel (14)2019-04-05 02:37:00 Test Item Value Reference Range Interpretation Comments Glucose (test code = 219 mg/dL 65-99 H 2345-7) BUN (test code = 44 mg/dL 6-24 H 3094-0) Creatinine (test code 1.51 mg/dL 0.76-1.27 H = 2160-0) eGFR If NonAfricn Am 55 mL/min/1.73 >59 L (test code = 46229-6) eGFR If Africn Am 64 mL/min/1.73 >59 (test code = 64837-7) BUN/Creatinine Ratio 29 9-20 H (test code = 3097-3) Sodium (test code = 139 mmol/L 062-852 7150-2) Potassium (test code 4.4 mmol/L 3.5-5.2 = 2823-3) Chloride (test code = 99 mmol/L 96-106 2075-0) Carbon Dioxide, Total 28 mmol/L 20-29 (test code = 2027-9) Calcium (test code = 8.9 mg/dL 8.7-10.2 65857-9) Protein, Total (test 6.1 g/dL 6.0-8.5 code [...] Total (test 2.8 g/dL 1.5-4.5 code = 11390-8) A/G Ratio (test code 1.2 1.2-2.2 = 1759-0) Bilirubin, Total 0.5 mg/dL 0.0-1.2 (test code = 1975-2) Alkaline Phosphatase 100 IU/L 39-117 (test code = 6768-6) AST (SGOT) (test code 22 IU/L 0-40 = 1920-8) ALT (SGPT) (test code 27 IU/L 0-44 = 1742-6) Access HealthRAPID STREP A [id number] 11:58:00 Test Item Value Reference Range Interpretation Comments STREP A ANTIGEN (BEAKER) (test code Negative = 556) POCT-GLUCOSE [id number] 22:44:00 Test Item Value Reference Range Interpretation Comments POC-GLUCOSE METER 431 mg/dL 70-110 HH TESTED AT [facility] [address] (BEAKER) (test code [facility] [place] = 1538) [address] POCT-GLUCOSE [id number] 22:44:00 Test Item Value Reference Range Interpretation Comments POC-GLUCOSE METER 455 mg/dL 70-110 HH TESTED AT [facility] [address] (BEAKER) (test code [facility] [place] = 1538) [address] URINALYSIS W/ REFLEX URINE [id number] 20:30:00 Test Item Value Reference Range Interpretation [...] SOURCE(BEAKER) (test code = 2795) COMPREHENSIVE METABOLIC [id number] 20:27:00 Test Item Value Reference Range Interpretation [...] S NOT APPLICABLE FOR DIALYSIS PATIEN TS. [id number] 20:27:00 Test Item Value Reference Range Interpretation Comments LIPASE (BEAKER) (test code = 749) 37 U/L 6-51 [id number] 20:23:00 Test Item Value Reference Range Interpretation [...] Information (Auto Output)CBC W/PLT COUNT & AUTO [id number] 20:11:00 Test Item Value Reference Range Interpretation [...] (BEAKER) (test code = 2801) BASIC METABOLIC [id number] 06:52:00 Test Item Value Reference Range Interpretation [...] NOT APPLICABLE FOR DIALYSIS PATIEN TS. POCT-GLUCOSE [id number] 05:58:00 Test Item Value Reference Range Interpretation Comments POC-GLUCOSE METER 222 mg/dL 70-110 H TESTED AT [address] [facility] (test code [facility] [place] = 1538) [address] POCT-GLUCOSE [id number] 20:37:00 Test Item Value Reference Range Interpretation Comments POC-GLUCOSE METER 157 mg/dL 70-110 H TESTED AT [address] [facility] (test code [facility] [place] = 1538) [address] POCT-GLUCOSE [id number] 18:13:00 Test Item Value Reference Range Interpretation Comments POC-GLUCOSE METER 176 mg/dL 70-110 H TESTED AT [address] [facility] (test code [facility] [facility] [place] = 1538) [address] POCT-GLUCOSE [id number] 12:16:00 Test Item Value Reference Range Interpretation Comments POC-GLUCOSE METER 161 mg/dL 70-110 H TESTED AT [facility] [address] (BEAKER) (test code [facility] [place] = 1538) [address] BASIC METABOLIC [id number] 07:11:00 Test Item Value Reference Range Interpretation [...] PATIEN TS. CBC W/PLT COUNT & AUTO [id number] 06:27:00 Test Item Value Reference Range Interpretation [...] PERCENT (BEAKER) (test code = 2801) POCT-GLUCOSE [id number] 06:22:00 Test Item Value Reference Range Interpretation Comments POC-GLUCOSE METER 172 mg/dL 70-110 H TESTED AT [address] (BEAKER) (test code [facility] [place] = 1538) [address] POCT-GLUCOSE [id number] 20:27:00 Test Item Value Reference Range Interpretation Comments POC-GLUCOSE METER 209 mg/dL 70-110 H TESTED AT [address] (BEAKER) (test code [facility] [place] = 1538) [address] POCT-GLUCOSE [id number] 18:12:00 Test Item Value Reference Range Interpretation Comments POC-GLUCOSE METER 192 mg/dL 70-110 H TESTED AT [address] (BEAKER) (test code [facility] [place] = 1538) 23857 POCT-GLUCOSE [id number] 11:20:00 Test Item Value Reference Range Interpretation Comments POC-GLUCOSE METER 192 mg/dL 70-110 H TESTED AT [address] (BEAKER) (test code [facility] [place] = 1538) [address] BASIC METABOLIC [id number] 07:02:00 Test Item Value Reference Range Interpretation [...] PATIEN TS. CBC W/PLT COUNT & AUTO [id number] 06:41:00 Test Item Value Reference Range Interpretation [...] PERCENT (BEAKER) (test code = 2801) POCT-GLUCOSE [id number] 06:13:00 Test Item Value Reference Range Interpretation Comments POC-GLUCOSE METER 134 mg/dL 70-110 H TESTED AT [address] (BEAKER) (test code [facility] [place] = 1538) 22481 POCT-GLUCOSE [id number] 21:38:00 Test Item Value Reference Range Interpretation Comments POC-GLUCOSE METER 114 mg/dL 70-110 H TESTED AT [address] (BEAKER) (test code [facility] [place] = 1538) 22236 POCT-GLUCOSE [id number] 16:58:00 Test Item Value Reference Range Interpretation Comments POC-GLUCOSE METER 294 mg/dL 70-110 H TESTED AT [facility] [address] (BEAKER) (test code [facility] [place] = 1538) [address] POCT-GLUCOSE [id number] 12:03:00 Test Item Value Reference Range Interpretation Comments POC-GLUCOSE METER 157 mg/dL 70-110 H TESTED AT [facility] (BEAKER) (test code [facility] [place] = 1538) 23470 POCT-GLUCOSE [id number] 06:50:00 Test Item Value Reference Range Interpretation Comments POC-GLUCOSE METER 167 mg/dL 70-110 H TESTED AT [facility] 131[facility] (BEAKER) (test code [facility] [place] = 1538) [address] BASIC METABOLIC [id number] 05:07:00 Test Item Value Reference Range Interpretation [...] S NOT APPLICABLE FOR DIALYSIS PATIEN TS. [id number] 05:01:00 Test Item Value Reference Range Interpretation Comments MAGNESIUM (BEAKER) (test code = 2.0 mg/dL 1.5-3.0 627) CBC W/PLT COUNT & AUTO [id number] 04:43:00 Test Item Value Reference Range Interpretation [...] PERCENT (BEAKER) (test code = 2801) POCT-GLUCOSE [id number] 20:37:00 Test Item Value Reference Range Interpretation Comments POC-GLUCOSE METER 212 mg/dL 70-110 H TESTED AT [address] ([facility]) (test code [facility] [place] = 1538) [address] POCT-GLUCOSE [id number] 17:03:00 Test Item Value Reference Range Interpretation Comments POC-GLUCOSE METER 176 mg/dL 70-110 H TESTED AT [address] ([facility]) (test code [facility] [place] = 1538) 14186 POCT-GLUCOSE [id number] 12:05:00 Test Item Value Reference Range Interpretation Comments POC-GLUCOSE METER 169 mg/dL 70-110 H TESTED AT [address] ([facility]) (test code [facility] [place] = 1538) 28514 POCT-GLUCOSE [id number] 09:25:00 Test Item Value Reference Range Interpretation Comments POC-GLUCOSE METER 148 mg/dL 70-110 H TESTED AT [address] ([facility]) (test code [facility] [place] = 1538) 387[address] BASIC METABOLIC [id number] 06:32:00 Test Item Value Reference Range Interpretation [...] NOT APPLICABLE FOR DIALYSIS PATIEN TS. POCT-GLUCOSE [id number] 06:12:00 Test Item Value Reference Range Interpretation Comments POC-GLUCOSE METER 165 mg/dL 70-110 H TESTED AT [facility] 131[facility] (BEAKER) (test code [facility] [place] = 1538) 1988[address] CBC W/PLT COUNT & AUTO [id number] 06:00:00 Test Item Value Reference Range Interpretation [...] PERCENT (BEAKER) (test code = 2801) POCT-GLUCOSE [id number] 21:02:00 Test Item Value Reference Range Interpretation Comments POC-GLUCOSE METER 185 mg/dL 70-110 H TESTED AT [address] ([facility]) (test code [facility] [place] = 1538) 17918 POCT-GLUCOSE [id number] 16:21:00 Test Item Value Reference Range Interpretation Comments POC-GLUCOSE METER 141 mg/dL 70-110 H TESTED AT [address] ([facility]) (test code [facility] [place] = 1538) 82124 POCT-GLUCOSE [id number] 12:26:00 Test Item Value Reference Range Interpretation Comments POC-GLUCOSE METER 145 mg/dL 70-110 H TESTED AT [address] ([facility]) (test code [facility] [place] = 1538) 36926 POCT-GLUCOSE [id number] 06:43:00 Test Item Value Reference Range Interpretation Comments POC-GLUCOSE METER 170 mg/dL 70-110 H TESTED AT [address] ([facility]) (test code [facility] [place] = 1538) 40865 BASIC METABOLIC [id number] 06:39:00 Test Item Value Reference Range Interpretation [...] S NOT APPLICABLE FOR DIALYSIS PATIEN TS. [id number] 06:33:00 Test Item Value Reference Range Interpretation Comments MAGNESIUM (BEAKER) (test code = 1.9 mg/dL 1.5-3.0 627) CBC W/PLT COUNT & AUTO [id number] 06:10:00 Test Item Value Reference Range Interpretation [...] LYMPHOCYTES ABSOLUTE COUNT 1.54 K/ L 1.48-4.50 ([facility]) (test code = 414) MONOCYTES ABSOLUTE COUNT (BEAKER) 0.77 K/ L 0.00-1.30 (test code = 415) EOSINOPHILS ABSOLUTE COUNT 0.31 K/ L 0.00-0.50 ([facility]) (test code = 416) BASOPHILS ABSOLUTE COUNT ([facility]) 0.08 K/ L 0.00-0.20 (test code = 417) IMMATURE GRANULOCYTES-RELATIVE 1 % 0-0 H PERCENT ([facility]) (test code = 2801) POCT-GLUCOSE [id number] 21:08:00 Test Item Value Reference Range Interpretation Comments POC-GLUCOSE METER 218 mg/dL 70-110 H TESTED AT [address] ([facility]) (test code [facility] [place] = 1538) 26962 POCT-GLUCOSE [id number] 16:36:00 Test Item Value Reference Range Interpretation Comments POC-GLUCOSE METER 142 mg/dL 70-110 H TESTED AT [address] ([facility]) (test code [facility] [place] = 1538) 21207 POCT-GLUCOSE [id number] 11:26:00 Test Item Value Reference Range Interpretation Comments POC-GLUCOSE METER 191 mg/dL 70-110 H TESTED AT [address] ([facility]) (test code [facility] [place] = 1538) 49929 VANCOMYCIN LEVEL, [id number] 09:08:00 Test Item Value Reference Range Interpretation Comments VANCOMYCIN TROUGH ([facility]) (test 17.9 ug/mL 10.0-20.0 code = 522) VANCOMYCIN DOSING BY RX - follow upTROUGH PRIOR TO DOSE ON 01/20/18 AT 8:30am COMPREHENSIVE METABOLIC [id number] 06:57:00 Test Item Value Reference Range Interpretation [...] NOT APPLICABLE FOR DIALYSIS PATIEN TS. POCT-GLUCOSE [id number] 06:33:00 Test Item Value Reference Range Interpretation Comments POC-GLUCOSE METER 226 mg/dL 70-110 H TESTED AT [address] ([facility]) (test code [facility] [place] = 1538) 78646 B-TYPE NATRIURETIC FACTOR (BNP)2018-01-20 06:00:00 Test Item Value Reference Range Interpretation Comments B-TYPE NATRIURETIC PEPTIDE (BEAKER) 371 pg/mL 0-100 H (test code = 700) CBC W/PLT COUNT & AUTO [id number] 05:40:00 Test Item Value Reference Range Interpretation [...] (BEAKER) (test code = 2801) BASIC METABOLIC [id number] 23:25:00 Test Item Value Reference Range Interpretation [...] S NOT APPLICABLE FOR DIALYSIS PATIEN TS. [id number] 23:19:00 Test Item Value Reference Range Interpretation Comments [facility] (test code = 1.9 mg/dL 1.5-3.0 627) POCT-GLUCOSE [id number] 21:12:00 Test Item Value Reference Range Interpretation Comments POC-GLUCOSE METER 237 mg/dL 70-110 H TESTED AT [address] ([facility]) (test code [facility] [place] = 1538) 47257 POCT-GLUCOSE [id number] 17:00:00 Test Item Value Reference Range Interpretation Comments POC-GLUCOSE METER 156 mg/dL 70-110 H TESTED AT [address] ([facility]) (test code [facility] [place] = 1538) 38962 POCT-GLUCOSE [id number] 12:51:00 Test Item Value Reference Range Interpretation Comments POC-GLUCOSE METER 135 mg/dL 70-110 H TESTED AT [address] ([facility]) (test code [facility] [place] = 1538) 57127 POCT-GLUCOSE [id number] 08:16:00 Test Item Value Reference Range Interpretation Comments POC-GLUCOSE METER 212 mg/dL 70-110 H TESTED AT [address] ([facility]) (test code [facility] [place] = 1538) 91166 VANCOMYCIN LEVEL, [id number] 21:00:00 Test Item Value Reference Range Interpretation Comments VANCOMYCIN TROUGH (BEAKER) (test 14.3 ug/mL 10.0-20.0 code = 522) POCT-GLUCOSE [id number] 20:56:00 Test Item Value Reference Range Interpretation Comments POC-GLUCOSE METER 216 mg/dL 70-110 H TESTED AT [address] [facility] (test code [facility] [place] = 1538) 45245 POCT-GLUCOSE [id number] 17:03:00 Test Item Value Reference Range Interpretation Comments POC-GLUCOSE METER 269 mg/dL 70-110 H TESTED AT [address] [facility] (test code [facility] [place] = 1538) 29239 POCT-GLUCOSE [id number] 06:22:00 Test Item Value Reference Range Interpretation Comments POC-GLUCOSE METER 115 mg/dL 70-110 H TESTED AT [address] [facility] (test code [facility] [place] = 1538) 046[address] BASIC METABOLIC [id number] 04:43:00 Test Item Value Reference Range Interpretation [...] S NOT APPLICABLE FOR DIALYSIS PATIEN TS. [id number] 04:37:00 Test Item Value Reference Range Interpretation Comments MAGNESIUM (BEAKER) (test code = 1.8 mg/dL 1.5-3.0 627) CBC W/PLT COUNT & AUTO [id number] 04:24:00 Test Item Value Reference Range Interpretation [...] [facility]ENTER) (test code = 2801) POCT-GLUCOSE [id number] 20:55:00 Test Item Value Reference Range Interpretation Comments POC-GLUCOSE METER 145 mg/dL 70-110 H TESTED AT [address] ([facility]) (test code [facility] [place] = 1538) 00561 VENOUS DOPPLER LEGS, [id number] 17:50:00Reason for exam:->r/o DVT FINAL REPORT Comparison: [...] MDReport Verified Date/Time: 01/17/2018 17:50:07 Reading Location: [facility] Reading Room POCT-GLUCOSE [id number] 17:04:00 Test Item Value Reference Range Interpretation Comments POC-GLUCOSE METER 134 mg/dL 70-110 H TESTED AT [address] ([facility]) (test code [facility] [place] = 1538) 82039 POCT-GLUCOSE [id number] 11:54:00 Test Item Value Reference Range Interpretation Comments POC-GLUCOSE METER 219 mg/dL 70-110 H TESTED AT [address] ([facility]) (test code [facility] [place] = 1538) 67171 POCT-GLUCOSE [id number] 09:10:00 Test Item Value Reference Range Interpretation Comments POC-GLUCOSE METER 48 mg/dL 70-110 L TESTED AT [address] ([facility]) (test code = [address] [facility] [place] 1538) [address] BASIC METABOLIC [id number] 06:27:00 Test Item Value Reference Range Interpretation [...] NOT APPLICABLE FOR DIALYSIS PATIEN TS. POCT-GLUCOSE [id number] 06:26:00 Test Item Value Reference Range Interpretation Comments POC-GLUCOSE METER 101 mg/dL 70-110 TESTED AT [address] ([facility]) (test code [facility] [place] = 1538) 54[address] CBC W/PLT COUNT & AUTO [id number] 05:58:00 Test Item Value Reference Range Interpretation [...] PERCENT (BEAKER) (test code = 2801) TROPONIN [id number] 00:11:00 Test Item Value Reference Range Interpretation [...] = 700) RAD, CHEST, 1 VIEW, NON [id number] 00:09:00Reason for exam:->SHORTNESS OF BREATHReason for exam:->EDEMAReason for exam:->WEIGHT GAINShould this be performed at the bedside?->YesFINAL REPORT INDICATION: SHORTNESS OF BREATHEDEMAWEIGHT GAIN COMPARISON: December 07, 2017 TECHNIQUE: Single frontal view of the chest. FINDINGS: Lungs and pleura: Clear lungs. No effusion.Heart and mediastinum: Stable prominent cardiac size. Unremarkable mediastinal contours.Osseous structures: No acute abnormality.Other: None. IMPRESSION: No acute intrathoracic abnormality.Signed: JR Richy, Arcelia VANCEeport Verified Date/Time: 01/17/2018 00:09:15 Reading Location:[facility] C013Y CT Body Reading Room BASIC METABOLIC [id number] 00:02:00 Test Item Value Reference Range Interpretation [...] PATIEN TS. CBC W/PLT COUNT & AUTO [id number] 23:35:00 Test Item Value Reference Range Interpretation [...] PERCENT (BEAKER) (test code = 2801) BLOOD [id number] 10:00:00 Test Item Value Reference Range Interpretation Comments CULTURE (BEAKER) (test No growth in 5 days code = 1095) BLOOD [id number] 10:00:00 Test Item Value Reference Range Interpretation Comments CULTURE (BEAKER) (test No growth in 5 days code = 1095) WOUND CULTURE + GRAM [id number] 10:10:00 Test Item Value Reference Interpretation Comments [...] (test code = cocci in pairs and 910895) clusters POCT-GLUCOSE [id number] 17:33:00 Test Item Value Reference Range Interpretation Comments POC-GLUCOSE METER 105 mg/dL 70-110 TESTED AT [address] [facility] (test code [facility] [place] = 1538) 66024 URINALYSIS W/ REFLEX URINE [id number] 09:56:00 Test Item Value Reference Range Interpretation [...] 1663) SOURCE(BEAKER) (test code = 2795) POCT-GLUCOSE [id number] 08:36:00 Test Item Value Reference Range Interpretation Comments POC-GLUCOSE METER 162 mg/dL 70-110 H TESTED AT [address] (BEAKER) (test code [facility] [place] = 1538) 0[address] TSH/FREE T4 IF [id number] 07:04:00 Test Item Value Reference Range Interpretation Comments THYROID STIMULATING HORMONE 4.64 uIU/mL 0.35-5.50 (BEAKER) (test code = 772) LIPID [id number] 06:50:00 Test Item Value Reference Range Interpretation [...] 130-159 High 160-189 Very High >=190BASIC METABOLIC [id number] 06:48:00 Test Item Value Reference Range Interpretation [...] PATIEN TS. CBC W/PLT COUNT & AUTO [id number] 06:33:00 Test Item Value Reference Range Interpretation [...] PERCENT (BEAKER) (test code = 2801) HEMOGLOBIN [id number] 06:32:00 Test Item Value Reference Range Interpretation Comments HEMOGLOBIN A1C (BEAKER) (test code = 10.4 % 4.3-6.1 H 368) VENOUS DOPPLER LEGS, [id number] 05:53:00Reason for exam:->edema rule out DVT/ CellulitisFINAL [...] MDReport Verified Date/Time: 12/08/2017 05:53:51 Reading Location: [facility] C013Y CT Body Reading Room TROPONIN [id number] 00:46:00 Test Item Value Reference Range Interpretation Comments [facility]ONIN I ([facility] (test code = 0.03 ng/mL [...] acidosis, acute neurological disease, and persistent tachyarrhythmia.POCT-GLUCOSE [id number] 21:14:00 Test Item Value Reference Range Interpretation Comments POC-GLUCOSE METER 221 mg/dL 70-110 H TESTED AT [address] ([facility]) (test code [facility] = 1538) 36[address] POCT-GLUCOSE [id number] 16:43:00 Test Item Value Reference Range Interpretation Comments POC-GLUCOSE METER 371 mg/dL 70-110 H TESTED AT [address] ([facility]) (test code [facility] = 1538) 045[address] CREATINE KINASE (CK), TOTAL AND [id number] 14:26:00 Test Item Value Reference Range Interpretation [...] acute neurological disease, and persistent tachyarrhythmia.BASIC METABOLIC [id number] 14:00:00 Test Item Value Reference Range Interpretation [...] S NOT APPLICABLE FOR DIALYSIS PATIEN TS. [id number] 13:54:00 Test Item Value Reference Range Interpretation Comments MAGNESIUM (BEAKER) 2.1 mg/dL 1.5-3.0 Specimen slightly (test code = 627) hemolyzed B-TYPE NATRIURETIC FACTOR (BNP)2017-12-07 13:48:00 Test Item Value Reference Range Interpretation Comments B-TYPE NATRIURETIC PEPTIDE (BEAKER) 520 pg/mL 0-100 H (test code = 700) [id number] 13:19:00 Test Item Value Reference Range Interpretation [...] Information (Auto Output)CBC W/PLT COUNT & AUTO [id number] 13:07:00 Test Item Value Reference Range Interpretation [...] = 2801) RAD, CHEST, 1 VIEW, NON [id number] 12:44:00Reason for exam:->CHEST PAIN FINAL REPORT Chest [...] MDReport Verified Date/Time: 12/07/2017 12:44:27 Reading Location: [address] Radiology Reading Room CREATINE KINASE (CK), TOTAL AND [id number] 02:36:00 Test Item Value Reference Range Interpretation [...] acute neurological disease, and persistent tachyarrhythmia.COMPREHENSIVE METABOLIC [id number] 02:28:00 Test Item Value Reference Range Interpretation [...] PATIEN TS. CBC W/PLT COUNT & AUTO [id number] 02:14:00 Test Item Value Reference Range Interpretation [...] PERCENT (BEAKER) (test code = 2801) KETONE, [id number] 01:55:00 Test Item Value Reference Range Interpretation Comments KETONES, BLOOD (BEAKER) (test code 0.2 mmol/L <0.4 = 1103) RAD, CHEST, 1 VIEW, NON [id number] 01:46:00Reason for exam:->pacemaker placement,pt feels it was [...] MDReport Verified Date/Time: 11/27/2017 01:46:38 Reading Location: [address] Reading Room POCT-GLUCOSE [id number] 13:29:00 Test Item Value Reference Range Interpretation Comments POC-GLUCOSE METER 214 mg/dL 70-110 H TESTED AT [address] (BEAKER) (test code [facility] [place] = 1538) [address] BASIC METABOLIC [id number] 06:48:00 Test Item Value Reference Range Interpretation [...] PATIEN TS. CBC W/PLT COUNT & AUTO [id number] 06:23:00 Test Item Value Reference Range Interpretation [...] L 0.00-0.20 (test code = 417) POCT-GLUCOSE [id number] 06:20:00 Test Item Value Reference Range Interpretation Comments POC-GLUCOSE METER 184 mg/dL 70-110 H TESTED AT [address] ([facility]) (test code [facility] [place] = 1538) [address] POCT-GLUCOSE [id number] 20:47:00 Test Item Value Reference Range Interpretation Comments POC-GLUCOSE METER 323 mg/dL 70-110 H Notified R Live SCHULER/TESTED AT ([facility]) (test code [address] POINT = 1538) [address] [facility] [address] POCT-GLUCOSE [id number] 16:55:00 Test Item Value Reference Range Interpretation Comments POC-GLUCOSE METER 320 mg/dL 70-110 H TESTED AT [address] ([facility]) (test code [facility] [place] = 1538) 69[address] B-TYPE NATRIURETIC FACTOR (BNP)2017-09-08 11:28:00 Test Item Value Reference Range Interpretation Comments B-TYPE NATRIURETIC PEPTIDE (AKER) 800 pg/mL 0-100 H (test code = 700) TROPONIN [id number] 11:25:00 Test Item Value Reference Range Interpretation [...] acute neurological disease, and persistent tachyarrhythmia.BASIC METABOLIC [id number] 11:17:00 Test Item Value Reference Range Interpretation [...] S NOT APPLICABLE FOR DIALYSIS PATIEN TS. [id number] 11:15:00 Test Item Value Reference Range Interpretation [...] (Auto Output)Final Information (Auto Output)Final Information (Auto Output)[id number] 11:11:00 Test Item Value Reference Range Interpretation Comments MAGNESIUM (BEAKER) (test code = 2.0 mg/dL 1.5-3.0 627) RAD, CHEST, 1 VIEW, NON [id number] 10:55:00Reason for exam:->chest pain FINAL REPORT CLINICAL HISTORY: chest pain TECHNIQUE: 1 view of the chest. COMPARISON: 06/10/2017 IMPRESSION: There is new pulmonary vascular congestion without lobar consolidation. There is blunting of the left costophrenic angle. The cardiomediastinal silhouette is magnified bytechnique with a pacemaker. Signed: Sia Hensley MDReport Verified Date/Time: 09/08/2017 10:55:33Reading Location: [facility] Radiology Reading Room CBC W/PLT COUNT & AUTO [id number] 10:47:00 Test Item Value Reference Range Interpretation [...] 0.00-0.20 (test code = 417) HIV-1 PCR, [id number] 05:37:00 Test Item Value Reference Range Interpretation Comments HIV-1 RESULT HIV RNA not detected HIV RNA not detected COMPONENT (BEAKER) (test code = 2703) This test uses a Real-Time Polymerase Chain Reaction (RT-PCR) methodology to detect a highly conserved region of the HIV-1 gag gene and was performed using the [employer] AmpliPrep/[employer]ER TaqMan HIV-1 test kit version 2.0 ([employer]Reportable range for this assay is 20 - 10,000,000 copies per mL (1.3 - 7.0 Log copies/mL).DOUBLE-STRANDED DNA (DSDNA) [id number] 10:04:00 Test Item Value Reference Range Interpretation Comments ANTI-DNA DS (BEAKER) (test code = Negative 1055) TIFF TITER AND [id number] 11:54:00 Test Item Value Reference Range Interpretation Comments TIFF TITER (BEAKER) (test code = :160 1541) TIFF PATTERN (BEAKER) (test code = Homogeneous 1781) ANTI-NUCLEAR ANTIBODY (TIFF)2017-06-14 11:53:00 Test Item Value Reference Range Interpretation Comments ANTI-NUCLEAR ANTIBODY (TIFF) (BEAKER) Positive Negative A (test code = 418) POCT-GLUCOSE [id number] 05:52:00 Test Item Value Reference Range Interpretation Comments POC-GLUCOSE METER 96 mg/dL 70-110 TESTED AT [facility] [address] (BEAKER) (test code = [address] [facility] 1538) [address] BASIC METABOLIC [id number] 05:15:00 Test Item Value Reference Range Interpretation Comments SODIUM (BEAKER) 141 meq/L 135-148 (test code = 381) POTASSIUM (BEAKER) 3.5 meq/L 3.6-5.5 L (test code = 379) CHLORIDE (BEAKER) 98 meq/L 98-106 (test code = 382) CO2 ([facility]) (test 34 meq/L 20-29 H code = [...] S NOT APPLICABLE FOR DIALYSIS PATITAVARES TS. POCT-GLUCOSE [id number] 05:09:00 Test Item Value Reference Range Interpretation Comments POC-GLUCOSE METER 67 mg/dL 70-110 L TESTED AT [address] ([facility]) (test code = [facility] 1538) [id number] POCT-GLUCOSE [id number] 21:55:00 Test Item Value Reference Range Interpretation Comments POC-GLUCOSE METER 142 mg/dL 70-110 H TESTED AT [address] ([facility]) (test code [facility] [place] = 1538) [address] POCT-GLUCOSE [id number] 19:05:00 Test Item Value Reference Range Interpretation Comments POC-GLUCOSE METER 139 mg/dL 70-110 H TESTED AT [address] ([facility]) (test code [facility] [place] = 1538) [address] POCT-GLUCOSE [id number] 16:54:00 Test Item Value Reference Range Interpretation Comments POC-GLUCOSE METER 59 mg/dL 70-110 L TESTED AT [address] ([facility]) (test code = [facility] [place] 1538) [address] POCT-GLUCOSE [id number] 13:19:00 Test Item Value Reference Range Interpretation Comments POC-GLUCOSE METER 235 mg/dL 70-110 H TESTED AT [address] ([facility]) (test code [facility] [place] = 1538) [address] POCT-GLUCOSE [id number] 06:52:00 Test Item Value Reference Range Interpretation Comments POC-GLUCOSE METER 113 mg/dL 70-110 H TESTED AT [address] (BEAKER) (test code [facility] [place] = 1538) [address] POCT-GLUCOSE [id number] 21:48:00 Test Item Value Reference Range Interpretation Comments POC-GLUCOSE METER 183 mg/dL 70-110 H TESTED AT [address] (BEAKER) (test code [facility] [place] = 1538) 34[address] POCT-GLUCOSE [id number] 17:22:00 Test Item Value Reference Range Interpretation Comments POC-GLUCOSE METER 262 mg/dL 70-110 H TESTED AT [address] (BEAKER) (test code [facility] [place] = 1538) [address] POCT-GLUCOSE [id number] 12:30:00 Test Item Value Reference Range Interpretation Comments POC-GLUCOSE METER 131 mg/dL 70-110 H TESTED AT [address] [facility] (test code [facility] [place] = 1538) [address] MICROALBUMIN, RANDOM [id number] 12:25:00 Test Item Value Reference Range Interpretation Comments MICROALBUMIN URINE ([facility]) (test 59.0 mg/dL code = 1794) Reference Range: No NormalsHEPATITIS PANEL, [id number] 11:31:00 Test Item Value Reference Range Interpretation Comments HEPATITIS A IGM ANTIBODY (BEAKER) Nonreactive Nonreactive (test code = 498) HEPATITIS B CORE IGM ANTIBODY Nonreactive Nonreactive (BEAKER) (test code = 645) [facility] C [facility]TIBODY ([facility] Nonreactive Nonreactive (test code = 367) HEPATITIS B SURFACE ANTIGEN (2) Nonreactive Nonreactive (BEAKER) (test code = 2585) COMPLEMENT COMPONENT [id number] 11:09:00 Test Item Value Reference Range Interpretation Comments C4 COMPLEMENT (BEAKER) (test code = 28 mg/dL 15-57 394) COMPLEMENT COMPONENT [id number] 11:09:00 Test Item Value Reference Range Interpretation Comments C3 COMPLEMENT (BEAKER) (test code = 145 mg/dL 82-193 393) POCT-GLUCOSE [id number] 06:48:00 Test Item Value Reference Range Interpretation Comments POC-GLUCOSE METER 75 mg/dL 70-110 TESTED AT [address] (BEAKER) (test code = [address] [facility] 1538) [address] TROPONIN [id number] 05:58:00 Test Item Value Reference Range Interpretation [...] acute neurological disease, and persistent tachyarrhythmia.BASIC METABOLIC [id number] 05:49:00 Test Item Value Reference Range Interpretation [...] S NOT APPLICABLE FOR DIALYSIS PATIEN TS. [id number] 05:48:00 Test Item Value Reference Range Interpretation Comments PHOSPHORUS (BEAKER) (test code = 4.2 mg/dL 2.5-4.5 604) POCT-GLUCOSE [id number] 21:18:00 Test Item Value Reference Range Interpretation Comments POC-GLUCOSE METER 146 mg/dL 70-110 H TESTED AT [facility] [address] (BEAKER) (test code [address] [facility] = 1538) [address] TROPONIN [id number] 18:26:00 Test Item Value Reference Range Interpretation [...] acidosis, acute neurological disease, and persistent tachyarrhythmia.POCT-GLUCOSE [id number] 17:07:00 Test Item Value Reference Range Interpretation Comments POC-GLUCOSE METER 97 mg/dL 70-110 TESTED AT [address] ([facility]) (test code = [address] [facility] 1538) [address] POCT-GLUCOSE [id number] 13:31:00 Test Item Value Reference Range Interpretation Comments POC-GLUCOSE METER 125 mg/dL 70-110 H TESTED AT [address] ([facility]) (test code [address] [facility] = 1538) [address] TROPONIN [id number] 06:11:00 Test Item Value Reference Range Interpretation [...] acidosis, acute neurological disease, and persistent tachyarrhythmia.LIPID [id number] 06:05:00 Test Item Value Reference Range Interpretation [...] 130-159 High 160-189 Very High >=190BASIC METABOLIC [id number] 06:03:00 Test Item Value Reference Range Interpretation [...] S NOT APPLICABLE FOR DIALYSIS PATIEN TS. [id number] 05:57:00 Test Item Value Reference Range Interpretation Comments MAGNESIUM (BEAKER) (test code = 1.9 mg/dL 1.5-3.0 627) HEMOGLOBIN [id number] 05:56:00 Test Item Value Reference Range Interpretation Comments HEMOGLOBIN A1C (BEAKER) (test code = 7.7 % 4.3-6.1 H 368) CBC W/PLT COUNT & AUTO [id number] 05:31:00 Test Item Value Reference Range Interpretation [...] L 0.00-0.20 (test code = 417) TROPONIN [id number] 22:53:00 Test Item Value Reference Range Interpretation [...] acute neurological disease, and persistent tachyarrhythmia.U/S, ABDOMINAL, [id number] 22:08:00Reason for exam:->AscitesReason for exam:->BLOATEDFINAL REPORT U/S, [...] MDReport Verified Date/Time: 06/10/2017 22:08:13 Reading Location: [address] Reading Room URINALYSIS W/ REFLEX URINE [id number] 18:41:00 Test Item Value Reference Range Interpretation [...] 1663) SOURCE(BEAKER) (test code = 2795) TROPONIN [id number] 13:07:00 Test Item Value Reference Range Interpretation [...] H (test code = 700) HEPATIC FUNCTION [id number] 12:59:00 Test Item Value Reference Range Interpretation [...] (test code = 23 U/L 5-50 347) [id number] 12:59:00 Test Item Value Reference Range Interpretation Comments LIPASE (BEAKER) (test code = 749) 19 U/L 6-51 BASIC METABOLIC [id number] 12:57:00 Test Item Value Reference Range Interpretation [...] PATIEN TS. CBC W/PLT COUNT & AUTO [id number] 12:37:00 Test Item Value Reference Range Interpretation [...] = 417) RAD, CHEST, 1 VIEW, NON [id number] 12:32:00Reason for exam:->shortness of breathReason for exam:->BLOATEDShould [facility]?->YesFINAL REPORT Comparison: 04/06/2012 TECHNIQUE: Single view of the chest FINDINGS: Lung volumes are low. Prominence of the cardiac silhouette and vasculature which may be related topoor inspiration and technique . There is no gross consolidation identified. No overt edema or largepleural effusion. Left-sided pacing device noted. No acute skeletal abnormality. Signed: Veronica Bonilla Verified Date/Time: 06/10/2017 12:32:49 Reading Location: [facility] Radiology Reading Room POCT-GLUCOSE [id number] 07:40:00 Test Item Value Reference Range Interpretation Comments POC-GLUCOSE METER 100 mg/dL 70-110 TESTED AT [address] ([facility]) (test code [facility] [place] = 1538) [address] POCT-GLUCOSE [id number] 06:57:00 Test Item Value Reference Range Interpretation Comments POC-GLUCOSE METER 50 mg/dL 70-110 L TESTED AT [address] ([facility]) (test code = [address] [facility] [place] 1538) [address] POCT-GLUCOSE [id number] 20:59:00 Test Item Value Reference Range Interpretation Comments POC-GLUCOSE METER 142 mg/dL 70-110 H TESTED AT [address] ([facility]) (test code [facility] [place] = 1538) 06[address] POCT-GLUCOSE [id number] 17:23:00 Test Item Value Reference Range Interpretation Comments POC-GLUCOSE METER 123 mg/dL 70-110 H TESTED AT [address] ([facility]) (test code [facility] [place] = 1538) [address] POCT-GLUCOSE [id number] 12:38:00 Test Item Value Reference Range Interpretation Comments POC-GLUCOSE METER 153 mg/dL 70-110 H TESTED AT [address] ([facility]) (test code [facility] [place] = 1538) [address] BASIC METABOLIC [id number] 05:49:00 Test Item Value Reference Range Interpretation [...] NOT APPLICABLE FOR DIALYSIS PATIEN TS. POCT-GLUCOSE [id number] 05:36:00 Test Item Value Reference Range Interpretation Comments POC-GLUCOSE METER 74 mg/dL 70-110 TESTED AT [address] ([facility]) (test code = [address] [facility] 1538) [address] CBC W/PLT COUNT & AUTO [id number] 05:29:00 Test Item Value Reference Range Interpretation [...] L 0.00-0.20 (test code = 417) POCT-GLUCOSE [id number] 19:53:00 Test Item Value Reference Range Interpretation Comments POC-GLUCOSE METER 120 mg/dL 70-110 H TESTED AT [address] ([facility]) (test code [facility] [place] = 1538) [address] POCT-GLUCOSE [id number] 15:41:00 Test Item Value Reference Range Interpretation Comments POC-GLUCOSE METER 135 mg/dL 70-110 H TESTED AT [address] ([facility]) (test code [facility] [place] = 1538) [address] RAD, CHEST, 1 VIEW, NON [id number] 12:31:00Reason for exam:->follow up FINAL REPORT COMPARISON: 04/03/2017 TECHNIQUE: Single view of the chest FINDINGS: Small left pleural effusion with adjacent airspace disease. There is mild vascular congestion elsewhere. Cardiac silhouette is enlarged. Left-sided pacing device noted. Signed: Gab Bonilla MDReport Verified Date/Time: 04/06/2017 12:31:34 Reading Location: [facility] Radiology Reading Room POCT- GLUCOSE [id number] 11:39:00 Test Item Value Reference Range Interpretation Comments POC-GLUCOSE METER 184 mg/dL 70-110 H TESTED AT [facility] (BEAKER) (test code [address] [facility] [place] = 1538) [address] POCT-GLUCOSE [id number] 07:18:00 Test Item Value Reference Range Interpretation Comments POC-GLUCOSE METER 83 mg/dL 70-110 TESTED AT [address] (BEAKER) (test code = [address] [facility] [place] 1538) [address] BASIC METABOLIC [id number] 06:01:00 Test Item Value Reference Range Interpretation [...] = 700) CBC W/PLT COUNT & AUTO [id number] 05:39:00 Test Item Value Reference Range Interpretation [...] L 0.00-0.20 (test code = 417) POCT-GLUCOSE [id number] 21:56:00 Test Item Value Reference Range Interpretation Comments POC-GLUCOSE METER 144 mg/dL 70-110 H TESTED AT [address] (BEAKER) (test code [facility] [place] = 1538) [address] POCT-GLUCOSE [id number] 16:38:00 Test Item Value Reference Range Interpretation Comments POC-GLUCOSE METER 153 mg/dL 70-110 H TEST[facility] AT [address] [facility] (test code [facility] [place] = 1538) [address] POCT-GLUCOSE [id number] 12:52:00 Test Item Value Reference Range Interpretation Comments POC-GLUCOSE METER 144 mg/dL 70-110 H TESTED AT [address] (BEAKER) (test code [facility] [place] = 1538) [address] POCT-GLUCOSE [id number] 06:07:00 Test Item Value Reference Range Interpretation Comments POC-GLUCOSE METER 124 mg/dL 70-110 H TESTED AT [address] ([facility]) (test code [facility] [place] = 1538) [address] BASIC METABOLIC [id number] 05:26:00 Test Item Value Reference Range Interpretation [...] S NOT APPLICABLE FOR DIALYSIS PATIEN TS. [id number] 05:20:00 Test Item Value Reference Range Interpretation Comments MAGNESIUM (BEAKER) (test code = 2.4 mg/dL 1.5-3.0 627) CBC W/PLT COUNT & AUTO [id number] 05:19:00 Test Item Value Reference Range Interpretation [...] L 0.00-0.20 (test code = 417) POCT-GLUCOSE [id number] 19:59:00 Test Item Value Reference Range Interpretation Comments POC-GLUCOSE METER 198 mg/dL 70-110 H TESTED AT [address] ([facility]) (test code [facility] [place] = 1538) 94[address] POCT-GLUCOSE [id number] 16:34:00 Test Item Value Reference Range Interpretation Comments POC-GLUCOSE METER 230 mg/dL 70-110 H TESTED AT [address] ([facility]) (test code [facility] [place] = 1538) [address] POCT-GLUCOSE [id number] 13:02:00 Test Item Value Reference Range Interpretation Comments POC-GLUCOSE METER 273 mg/dL 70-110 H TESTED AT [address] ([facility]) (test code [facility] [place] = 1538) [address] B-TYPE NATRIURETIC FACTOR (BNP)2017-04-04 06:55:00 Test Item Value Reference Range Interpretation Comments B-TYPE NATRIURETIC PEPTIDE (BEAKER) 824 pg/mL 0-100 H (test code = 700) BASIC METABOLIC [id number] 06:47:00 Test Item Value Reference Range Interpretation [...] S NOT APPLICABLE FOR DIALYSIS PATITAVARES TS. [id number] 06:41:00 Test Item Value Reference Range Interpretation Comments MAGNESIUM (BEAKER) (test code = 2.2 mg/dL 1.5-3.0 627) CBC W/PLT COUNT & AUTO [id number] 06:32:00 Test Item Value Reference Range Interpretation [...] 0-100 H (test code = 700) TROPONIN [id number] 12:05:00 Test Item Value Reference Range Interpretation [...] neurological disease, and persistent tachyarrhythmia.RAD, CHEST, 2 [id number] 11:59:00 Reason for exam:->SOBFINAL REPORT History: Shortness [...] MDReport Verified Date/Time: 04/03/2017 11:59:26 Reading Location: [facility] C013[facility] Consult Reading Room BASIC METABOLIC [id number] 11:57:00 Test Item Value Reference Range Interpretation [...] PATIEN TS. CBC W/PLT COUNT & AUTO [id number] 11:42:00 Test Item Value Reference Range Interpretation [...] = 417) RAD, CHEST, 1 VIEW, NON [id number] 11:12:00Reason for exam:->follow up FINAL REPORT Chest, 1 view Clinical history: follow up Comparison: 03/25/2017Discussion: Left-sided pacemaker in position without pneumothorax. Small left pleural effusion is seen with atelectasis. The cardiac silhouette is enlarged with mild perihilar edema. No acute osseous abnormality. Signed: Jamir Mai MDReport Verified Date/Time: 03/27/2017 11:12:12 Reading Location: [address] Ortho Consult Reading Room [id number] 08:29:00 Test Item Value Reference Range Interpretation [...] = 700) CREATINE KINASE (CK), TOTAL AND [id number] 08:27:00 Test Item Value Reference Range Interpretation Comments CREATINE KINASE TOTAL (BEAKER) 303 U/L 40-250 H (test code = 380) CREATINE KINASE-MB (BEAKER) (test 5.9 ng/mL 0.0-4.9 H code = 750) CREATINE KINASE-MB INDEX (BEAKER) 1.9 % (test code = 395) CK-MB Reference Range:<5 Normal5-10 Borderline>10 AbnormalBASIC METABOLIC [id number] 08:18:00 Test Item Value Reference Range Interpretation [...] PATIEN TS. CBC W/PLT COUNT & AUTO [id number] 07:44:00 Test Item Value Reference Range Interpretation [...] L 0.00-0.20 (test code = 417) POCT-GLUCOSE [id number] 05:54:00 Test Item Value Reference Range Interpretation Comments POC-GLUCOSE METER 226 mg/dL 70-110 H TESTED AT [address] [facility] (test code [facility] [place] = 1538) [address] POCT-GLUCOSE [id number] 20:54:00 Test Item Value Reference Range Interpretation Comments POC-GLUCOSE METER 180 mg/dL 70-110 H TESTED AT [facility] ([facility]) (test code [facility] [place] = 1538) [address] POCT-GLUCOSE [id number] 16:40:00 Test Item Value Reference Range Interpretation Comments POC-GLUCOSE METER 262 mg/dL 70-110 H TESTED AT [facility] ([facility]) (test code [facility] [place] = 1538) [address] LIPID [id number] 15:41:00 Test Item Value Reference Range Interpretation [...] High 160-189 Very High >=190TSH/FREE T4 IF [id number] 15:27:00 Test Item Value Reference Range Interpretation Comments THYROID STIMULATING HORMONE 4.34 uIU/mL 0.35-5.50 ([facility]) (test code = 772) TROPONIN [id number] 15:18:00 Test Item Value Reference Range Interpretation [...] H (test code = 700) BASIC METABOLIC [id number] 15:03:00 Test Item Value Reference Range Interpretation [...] NOT APPLICABLE FOR DIALYSIS PATIEN TS. HEMOGLOBIN [id number] 08:23:00 Test Item Value Reference Range Interpretation Comments HEMOGLOBIN A1C (BEAKER) (test code = 8.8 % 4.3-6.1 H 368) CBC W/PLT COUNT & AUTO [id number] 07:23:00 Test Item Value Reference Range Interpretation [...] L 0.00-0.20 (test code = 417) POCT-GLUCOSE [id number] 06:53:00 Test Item Value Reference Range Interpretation Comments POC-GLUCOSE METER 176 mg/dL 70-110 H TESTED AT [address] ([facility]) (test code [facility] = 1538) [address] TROPONIN [id number] 23:25:00 Test Item Value Reference Range Interpretation [...] 395) CK-MB Reference Range:<5 Normal5-10 Borderline>10 AbnormalPOCT-GLUCOSE [id number] 20:54:00 Test Item Value Reference Range Interpretation Comments POC-GLUCOSE METER 157 mg/dL 70-110 H TESTED AT [address] ([facility]) (test code [facility] = 1538) 836[address] TROPONIN [id number] 14:46:00 Test Item Value Reference Range Interpretation [...] 0-100 H (test code = 700) PROTHROMBIN [id number] 14:42:00 Test Item Value Reference Range Interpretation Comments PROTIME (BEAKER) (test code = 11.4 seconds 9.3-12.0 759) INR (BEAKER) (test code = 370) 1.1 <=5.9 RECOMMENDED COUMADIN/WARFARIN INR THERAPY RANGESSTANDARD DOSE: 2.0 - 3.0 Includes: PROPHYLAXIS forvenous thrombosis, systemic embolization; TREATMENT for venous thrombosis and/or pulmonary embolus.HIGH RISK: Target INR is 2.5-3.5 for patients with mechanical heart valves.[id number] 14:42:00 Test Item Value Reference Range Interpretation Comments PARTIAL THROMBOPLASTIN TIME 27.0 seconds 23.0-35.0 (BEAKER) (test code = 760) CREATINE KINASE (CK), TOTAL AND [id number] 14:41:00 Test Item Value Reference Range Interpretation Comments CREATINE KINASE TOTAL (BEAKER) 328 U/L 40-250 H (test code = 380) CREATINE KINASE-MB (BEAKER) (test 5.9 ng/mL 0.0-4.9 H code = 750) CREATINE KINASE-MB INDEX (BEAKER) 1.8 % (test code = 395) CK-MB Reference Range:<5 Normal5-10 Borderline>10 AbnormalCOMPREHENSIVE METABOLIC [id number] 14:34:00 Test Item Value Reference Range Interpretation [...] PATIEN TS. CBC W/PLT COUNT & AUTO [id number] 14:04:00 Test Item Value Reference Range Interpretation [...] = 417) RAD, CHEST, 1 VIEW, NON [id number] 13:52:00Reason for exam:->SHORTNESS OF BREATHReason for exam:->EDEMAShould [...] [place] Verified Date/Time: 03/25/2017 13:52:22 Reading Location: [facility] Radiology Reading Room POCT- GLUCOSE [id number] 12:04:00 Test Item Value Reference Range Interpretation Comments POC-GLUCOSE METER 171 mg/dL 70-110 H TESTED AT [facility] [address] (BEAKER) (test code [facility] [place] = 1538) [address] BASIC METABOLIC [id number] 08:14:00 Test Item Value Reference Range Interpretation [...] PATIEN TS. CBC W/PLT COUNT & AUTO [id number] 07:57:00 Test Item Value Reference Range Interpretation [...] L 0.00-0.20 (test code = 417) POCT-GLUCOSE [id number] 07:11:00 Test Item Value Reference Range Interpretation Comments POC-GLUCOSE METER 164 mg/dL 70-110 H TESTED AT [address] ([facility]) (test code [facility] [place] = 1538) [address] POCT-GLUCOSE [id number] 22:24:00 Test Item Value Reference Range Interpretation Comments POC-GLUCOSE METER 222 mg/dL 70-110 H TESTED AT [address] ([facility]) (test code [facility] [place] = 1538) 24377 POCT-GLUCOSE [id number] 17:12:00 Test Item Value Reference Range Interpretation Comments POC-GLUCOSE METER 187 mg/dL 70-110 H TESTED AT [address] ([facility]) (test code [facility] [place] = 1538) 62665 POCT-GLUCOSE [id number] 17:12:00 Test Item Value Reference Range Interpretation Comments POC-GLUCOSE METER 190 mg/dL 70-110 H TESTED AT [address]) (test code [facility] [place] = 1538) [address] POCT-GLUCOSE [id number] 05:55:00 Test Item Value Reference Range Interpretation Comments POC-GLUCOSE METER 181 mg/dL 70-110 H TESTED AT [address] ([facility]) (test code [facility] [place] = 1538) 16910 POCT-GLUCOSE [id number] 21:23:00 Test Item Value Reference Range Interpretation Comments POC-GLUCOSE METER 305 mg/dL 70-110 H Baby teste d Mother ID ([facility]) (test code used/[facility] [address] [place] [facility] [place] [address] = 1538) [address] [facility] [address] POCT-GLUCOSE [id number] 19:05:00 Test Item Value Reference Range Interpretation Comments POC-GLUCOSE METER 181 mg/dL 70-110 H TESTED AT [address] ([facility]) (test code [facility] [place] = 1538) 05[address] POCT-GLUCOSE [id number] 19:04:00 Test Item Value Reference Range Interpretation Comments POC-GLUCOSE METER 252 mg/dL 70-110 H TESTED AT [address] ([facility]) (test code [facility] [place] = 1538) 0[address] POCT-GLUCOSE [id number] 19:04:00 Test Item Value Reference Range Interpretation Comments POC-GLUCOSE METER 175 mg/dL 70-110 H TESTED AT [address] ([facility]) (test code [facility] [place] = 1538) 45[address] POCT-GLUCOSE [id number] 06:14:00 Test Item Value Reference Range Interpretation Comments POC-GLUCOSE METER 212 mg/dL 70-110 H TESTED AT [address] ([facility]) (test code [facility] [place] = 1538) [address] CREATINE KINASE (CK), TOTAL AND [id number] 03:39:00 Test Item Value Reference Range Interpretation [...] acidosis, acute neurological disease, and persistent tachyarrhythmia.LIPID [id number] 03:33:00 Test Item Value Reference Range Interpretation [...] 130-159 High 160-189 Very High >=190BASIC METABOLIC [id number] 03:31:00 Test Item Value Reference Range Interpretation [...] NOT APPLICABLE FOR DIALYSIS PATIEN TS. HEMOGLOBIN [id number] 03:30:00 Test Item Value Reference Range Interpretation Comments HEMOGLOBIN A1C (BEAKER) (test code = 9.7 % 4.3-6.1 H 368) CBC W/PLT COUNT & AUTO [id number] 03:18:00 Test Item Value Reference Range Interpretation [...] L 0.00-0.20 (test code = 417) POCT-GLUCOSE [id number] 21:13:00 Test Item Value Reference Range Interpretation Comments POC-GLUCOSE METER 285 mg/dL 70-110 H TESTED AT [address] ([facility]) (test code [facility] [place] = 1538) 24708 POCT-GLUCOSE [id number] 21:13:00 Test Item Value Reference Range Interpretation Comments POC-GLUCOSE METER 288 mg/dL 70-110 H TESTED AT [address] ([facility]) (test code [facility] [place] = 1538) [address] CREATINE KINASE (CK), TOTAL AND [id number] 16:27:00 Test Item Value Reference Range Interpretation [...] and persistent tachyarrhythmia.RAD, CHEST, 1 VIEW, NON [id number] 09:17:00Reason for exam:->chest painFINAL REPORT Chest one [...] Gonzales Verified Date/Time: 02/04/2017 09:17:01 Reading Location: [facility] Radiology Reading Room [facility] [id number] 09:14:00 Test Item Value Reference Range Interpretation [...] = 700) CREATINE KINASE (CK), TOTAL AND [id number] 09:13:00 Test Item Value Reference Range Interpretation Comments CREATINE KINASE TOTAL (BEAKER) 235 U/L 40-250 (test code = 380) CREATINE KINASE-MB (BEAKER) (test 6.0 ng/mL 0.0-4.9 H code = 750) CREATINE KINASE-MB INDEX (BEAKER) 2.6 % (test code = 395) CK-MB Reference Range:<5 Normal5-10 Borderline>10 AbnormalBASIC METABOLIC [id number] 09:05:00 Test Item Value Reference Range Interpretation [...] S NOT APPLICABLE FOR DIALYSIS PATIEN TS. PT/[id number] 09:03:00 Test Item Value Reference Range Interpretation [...] is 2.5-3.5 for patients with mechanical heart [id number] 09:00:00 Test Item Value Reference Range Interpretation Comments MAGNESIUM (BEAKER) (test code = 2.0 mg/dL 1.5-3.0 627) CBC W/PLT COUNT & AUTO [id number] 08:50:00 Test Item Value Reference Range Interpretation [...] = 700) CREATINE KINASE (CK), TOTAL AND [id number] 11:53:00 Test Item Value Reference Range Interpretation Comments CREATINE KINASE TOTAL (BEAKER) 228 U/L 40-250 (test code = 380) CREATINE KINASE-MB (BEAKER) (test 4.8 ng/mL 0.0-4.9 code = 750) CREATINE KINASE-MB INDEX (BEAKER) 2.1 % (test code = 395) CK-MB Reference Range:<5 Normal5-10 Borderline>10 AbnormalBASIC METABOLIC [id number] 11:52:00 Test Item Value Reference Range Interpretation [...] NOT APPLICABLE FOR DIALYSIS PATIEN TS. TROPONIN [id number] 11:40:00 Test Item Value Reference Range Interpretation [...] acidosis, acute neurological disease, and persistent tachyarrhythmia.PROTHROMBIN [id number] 10:16:00 Test Item Value Reference Range Interpretation [...] = 417) RAD, CHEST, 1 VIEW, NON [id number] 09:42:00Reason for exam:->SHORTNESS OF BREATHOn \\T\\ off [...] MDReport Verified Date/Time: 12/01/2016 09:42:01 Reading Location: [facility] Radiology Reading Room POCT-GLUCOSE [id number] 18:07:00 Test Item Value Reference Range Interpretation Comments POC-GLUCOSE METER 159 mg/dL 70-110 H TESTED AT [address] ([facility]) (test code [facility] [place] = 1538) [id number] POCT-GLUCOSE [id number] 13:56:00 Test Item Value Reference Range Interpretation Comments POC-GLUCOSE METER 218 mg/dL 70-110 H TESTED AT [address] ([facility]) (test code [facility] [place] = 1538) [id number] POCT-GLUCOSE [id number] 06:26:00 Test Item Value Reference Range Interpretation Comments POC-GLUCOSE METER 118 mg/dL 70-110 H TESTED AT [address] ([facility]) (test code [facility] [place] = 1538) [id number] HEMOGLOBIN [id number] 02:55:00 Test Item Value Reference Range Interpretation Comments HEMOGLOBIN A1C ([facility]) (test code = 9.3 % 4.3-6.1 H 368) TROPONIN [id number] 02:45:00 Test Item Value Reference Range Interpretation [...] ([facility]) (test 4.2 ng/mL 0.0-4.9 code = 750) CREATINE KINASE-MB INDEX ([facility]) 1.7 % (test code = 395) CK-MB Reference Range:<5 Normal5-10 Borderline>10 AbnormalLIPID PANEL 2016-11-02 02:41:00 Test Item Value Reference Range Interpretation Comments TRIGLYCERIDES ([facility]) (test code = 194 mg/dL 540) CHOLESTEROL (AKER) (test code = 242 mg/dL 631) HDL CHOLESTEROL ([facility]) (test code 27 mg/dL = 976) LDL [...] 130-159 High 160-189 Very High >=190BASIC METABOLIC [id number] 02:38:00 Test Item Value Reference Range Interpretation [...] PATIEN TS. CBC W/PLT COUNT & AUTO [id number] 02:37:00 Test Item Value Reference Range Interpretation [...] L 0.00-0.20 (test code = 417) POCT-GLUCOSE [id number] 21:41:00 Test Item Value Reference Range Interpretation Comments POC-GLUCOSE METER 222 mg/dL 70-110 H TESTED AT [address] ([facility]) (test code [facility] [place] = 1538) [id number] POCT-GLUCOSE [id number] 17:42:00 Test Item Value Reference Range Interpretation Comments POC-GLUCOSE METER 187 mg/dL 70-110 H TESTED AT [address] ([facility]) (test code [facility] [place] = 1538) [id number] TROPONIN [id number] 17:08:00 Test Item Value Reference Range Interpretation [...] 395) CK-MB Reference Range:<5 Normal5-10 Borderline>10 AbnormalPOCT-GLUCOSE [id number] 12:19:00 Test Item Value Reference Range Interpretation Comments POC-GLUCOSE METER 284 mg/dL 70-110 H TESTED AT [facility] (BEAKER) (test code [facility] [place] = 1538) [id number] URINALYSIS W/ REFLEX URINE [id number] 08:37:00 Test Item Value Reference Range Interpretation [...] 0-100 H (test code = 700) CALCIUM, [id number] 06:41:00 Test Item Value Reference Range Interpretation Comments CALCIUM IONIZED (BEAKER) (test 1.14 mmol/L 1.12-1.27 code = 698) PH, BLOOD (BEAKER) (test code = 7.43 1810) CREATINE KINASE (CK), TOTAL AND [id number] 06:14:00 Test Item Value Reference Range Interpretation [...] 0.00-0.20 (test code = 417) BASIC METABOLIC [id number] 06:08:00 Test Item Value Reference Range Interpretation [...] NOT APPLICABLE FOR DIALYSIS PATIEN TS. PROTHROMBIN [id number] 06:01:00 Test Item Value Reference Range Interpretation Comments PROTIME (BEAKER) (test code = 10.2 seconds 9.3-12.0 759) INR (BEAKER) (test code = 370) 1.0 <=5.9 RECOMMENDED COUMADIN/WARFARIN INR THERAPY RANGESSTANDARD DOSE: 2.0 - 3.0 Includes: PROPHYLAXIS forvenous thrombosis, systemic embolization; TREATMENT for venous thrombosis and/or pulmonary embolus.HIGH RISK: Target INR is 2.5-3.5 for patients with mechanical heart valves.TROPONIN [id number] 05:35:00 Test Item Value Reference Range Interpretation [...] CK-MB Reference Range:<5 Normal5-10 Borderline>10 AbnormalBASIC METABOLIC [id number] 05:27:00 Test Item Value Reference Range Interpretation [...] PATIEN TS. CBC W/PLT COUNT & AUTO [id number] 05:11:00 Test Item Value Reference Range Interpretation [...]
[2021-07-26] MEDS ORDERED: HYDROCODONE/APAP 5/325 MG TAB ONE (01:53)
--- NOTE | 2021-07-26 04:06 | EDPHYS ---
Physician Documentation [facility] Name: Binu Mcelroy Age: 45 yrs Sex: Male : 1975 Arrival Date: 07/25/2021 Time: 23:57 Bed 5 Private MD: LATONYA Physician Kumar Velarde HPI: 07/26 01:40 This 45 yrs old Male presents to ER via Wheelchair with complaints of Leg Injury - mh7 Right. 01:40 The patient presents with an injury. The complaints affect the right knee. Context: The mh7 problem was sustained at home, resulted from a direct blow, from a heavy object, the patient can fully bear weight, the patient is able to ambulate, with mild difficulty, Problem is a result from a previous injury: Yes. Onset: The symptoms/episode began/occurred today. Modifying factors: The symptoms are alleviated by nothing. the symptoms are aggravated by weight bearing, bending knee. Associated signs and symptoms: Pertinent negatives calf tenderness, fever, nausea, numbness, rash, swelling, tingling, vomiting, warmth, weakness. Treatment prior to arrival includes: no previous treatment. Severity of symptoms: At their worst the symptoms were moderate, earlier today, in the emergency department the symptoms have improved, mildly. Historical: - Allergies: 01:06 No Known Allergies; ll3 - PMHx: 01:06 CHF; CVA; diabetes mellitus; Myocardial infarction; Transient cerebral ischemia; ll3 Cerebrovascular accident; - PSHx: 01:06 Heart Stents; Pacemaker/Defib; ll3 - Immunization history:: Client reports receiving the 2nd dose of the Covid vaccine. - Social history:: Smoking status: Patient/guardian denies using tobacco. ROS: 01:40 Constitutional: Negative for fever, chills, and weight loss, Eyes: Negative for injury, mh7 pain, redness, and discharge, ENT: Negative for injury, pain, and discharge, Neck: Negative for injury, pain, and swelling, Cardiovascular: Negative for chest pain, palpitations, and edema, Respiratory: Negative for shortness of breath, cough, wheezing, and pleuritic chest pain, Abdomen/GI: Negative for abdominal pain, nausea, vomiting, diarrhea, and constipation, Back: Negative for injury and pain, : Negative for injury, bleeding, discharge, and swelling, Skin: Negative for injury, rash, and discoloration, Neuro: Negative for headache, weakness, numbness, tingling, and seizure, Psych: Negative for depression, anxiety, suicide ideation, homicidal ideation, and hallucinations, Allergy/Immunology: Negative for hives, rash, and allergies, Endocrine: Negative for neck swelling, polydipsia, polyuria, polyphagia, and marked weight changes, Hematologic/Lymphatic: Negative for swollen nodes, abnormal bleeding, and unusual bruising. Exam: 01:40 Constitutional: This is a well developed, well nourished patient who is awake, alert, mh7 and in no acute distress. Head/Face: Normocephalic, atraumatic. Eyes: Pupils equal round and reactive to light, extra-ocular motions intact. Lids and lashes normal. Conjunctiva and sclera are non-icteric and not injected. Cornea within normal limits. Periorbital areas with no swelling, redness, or edema. Neck: Trachea midline, no thyromegaly or masses palpated, and no cervical lymphadenopathy. Supple, full range of motion without nuchal rigidity, or vertebral point tenderness. No Meningismus. Chest/axilla: Normal chest wall appearance and motion. Nontender with no deformity. No lesions are appreciated. Cardiovascular: Regular rate and rhythm with a normal S1 and S2. No gallops, murmurs, or rubs. Normal PMI, no JVD. No pulse deficits. Respiratory: Lungs have equal breath sounds bilaterally, clear to auscultation and percussion. No rales, rhonchi or wheezes noted. No increased work of breathing, no retractions or nasal flaring. Abdomen/GI: Soft, non-tender, with normal bowel sounds. No distension or tympany. No guarding or rebound. No evidence of tenderness throughout. Back: No spinal tenderness. No costovertebral tenderness. Full range of motion. Skin: Warm, dry with normal turgor. Normal color with no rashes, no lesions, and no evidence of cellulitis. 01:40 Neuro: Awake and alert, GCS 15, oriented to person, place, time, and situation. Cranial nerves II-XII grossly intact. Motor strength 5/5 in all extremities. Sensory grossly intact. Cerebellar exam normal. Normal gait. Psych: Awake, alert, with orientation to person, place and time. Behavior, mood, and affect are within normal limits. 01:40 Musculoskeletal/extremity: Extremities: noted in the right knee and right leg: pain, tenderness, ROM: intact in all extremities, Circulation is intact in all extremities. Sensation intact. Compartment Syndrome exam of affected extremity: is normal. no numbness, no tingling, no sensation deficit, no palor, no weak pulses, Joints: the right knee displays tenderness, Weight bearing: can bear weight with assistance only, uses crutch, Tendon exam: specific tendon testing normal through active and passive range of motion Vital Signs: 01:00 BP 130 / 97; Pulse 84; Resp 18; Temp 98.4(TE); Pulse Ox 98% on R/A; Weight 97.52 kg ll3 (R); Height 5 ft. 10 in. (177.80 cm) (R); Pain 10/10; 01:45 BP 130 / 86; Pulse 83; Resp 18; Pulse Ox 98% on R/A; vc1 02:45 BP 133 / 94; Pulse 81; Resp 17; Pulse Ox 97% on R/A; vc1 02:51 Pain 6/10; ag7 03:15 BP 133 / 94; Pulse 80; Resp 18; Pulse Ox 98% on R/A; vc1 01:00 Body Mass Index 30.85 (97.52 kg, 177.80 cm) ll3 MDM: 04:03 Differential diagnosis: closed fracture, contusion, abrasion, tendonitis. Data [facility] reviewed: vital signs, nurses notes, radiologic studies, plain films. Data interpreted: Pulse oximetry: on room air is 98 %. Interpretation: normal. Counseling: I had a detailed discussion with the patient and/or guardian regarding: the historical points, exam findings, and any diagnostic results supporting the discharge/admit diagnosis, radiology results, the need for outpatient follow up, a orthopedic surgeon. Response to treatment: the patient's symptoms have markedly improved after treatment. 04:05 Patient medically screened. [facility] 07/26 01:23 Order name: Tib Fib Right XRAY [facility] 07/26 01:34 Order name: Knee Right 3 View XRAY [facility] Administered Medications: 01:49 CANCELLED (wrong orderr): HYDROcodone-acetaminophen (5 mg-500 mg) 1 tabs PO once; RASS 7 on ADMIN: Combtv4, Very Agttd3, Agttd2, Rstlss1, AlertClm0, Drwsy-1, Lt Sdtn-2, Mod Sdtn-3, Dp Sdtn-4, UnArsble-5 01:51 Drug: [place] (HYDROcodone-acetaminophen) 5 mg-325 mg 1 tabs Route: PO; ag7 02:51 Follow up: Pain 10; Response: No adverse reaction; Pain is decreased [facility] Disposition Summary: 07/26/21 04:05 Discharge Ordered Location: Home [facility] Problem: an ongoing problem [facility] Symptoms: have improved [facility] Condition: Stable [facility] Diagnosis - Fibula Fracture, Right Proximal [facility] - Contusion, Right Knee [facility] - Fibula Fracture, Right Proximal, Chronic [facility] Followup: [facility] - With: Private Physician - When: 1 - 2 days - Reason: Worsening of condition, Recheck today's complaints, Continuance of care, Re-evaluation by your physician Discharge Instructions: - Discharge Summary Sheet [facility] - Contusion, Vtzf-bi-Xpis [facility] - Fibular Fracture, Pediatric [facility] Forms: - Medication Reconciliation Form [facility] - Thank You Letter [facility] - Antibiotic Education [facility] - Prescription Opioid Use [facility] Prescriptions: - ketorolac 10 mg Oral tablet - take 1 tablet by ORAL route every 6 hours As needed not to exceed 40 mg in [facility] 24hrs; 12 tablet; Refills: 0, Product Selection Permitted Signatures: Dispatcher [employer] Kumar Mendoza MD MD 7 Andrea Seay RN RN 3 Alessandra Owens RN RN 7 Corrections: (The following items were deleted from the chart) 01:49 01:34 HYDROcodone-acetaminophen (5 mg-500 mg) 1 tabs PO once; RASS on ADMIN: Combtv4, mh7 Very Agttd3, Agttd2, Rstlss1, AlertClm0, Drwsy-1, Lt Sdtn-2, Mod Sdtn-3, Dp Sdtn-4, UnArsble-5 ordered. [facility]
--- NOTE | 2021-07-26 04:06 | ER ---
Nurse's Notes [facility] Name: Binu Mcelroy Age: 45 yrs Sex: Male : 1975 Arrival Date: 07/25/2021 Time: 23:57 Bed 5 Private MD: Diagnosis: Fibula Fracture, Right Proximal;Contusion, Right Knee;Fibula Fracture, Right Proximal, Chronic Presentation: 07/26 01:00 Chief complaint: Patient states: States broke fibula 2 weeks ago, at 11 PM knocked ll3 right leg at the injured area, pt states "I'm concerned that I re injured the area" c/o of right leg pain 01/05. Coronavirus screen: Vaccine status: Patient reports receiving the 2nd dose of the covid vaccine. At this time, the client does not indicate any symptoms associated with coronavirus-19. Ebola Screen: No symptoms or risks identified at this time. Initial Sepsis Screen: Does the patient meet any 2 criteria? No. Patient's initial sepsis screen is negative. Does the patient have a suspected source of infection? No. Patient's initial sepsis screen is negative. Risk Assessment: Do you want to hurt yourself or someone else? Patient reports no desire to harm self or others. Onset of symptoms was July 25, 2021 at 23:00. 01:00 Method Of Arrival: Wheelchair ll3 01:00 Acuity: CRISS 3 ll3 Triage Assessment: 01:06 General: Appears uncomfortable, Behavior is calm, cooperative. Pain: Complains of pain ll3 in lateral aspect of right knee Pain does not radiate. Pain currently is 10 out of 10 on a pain scale. Pain began 3 hours ago. Is continuous. Musculoskeletal: Circulation, motion, and sensation intact. Range of motion: limited in right knee. Injury Description: Hit injured leg onto a large container. Historical: - Allergies: 01:06 No Known Allergies; ll3 - PMHx: 01:06 CHF; CVA; diabetes mellitus; Myocardial infarction; Transient cerebral ischemia; ll3 Cerebrovascular accident; - PSHx: 01:06 Heart Stents; Pacemaker/Defib; ll3 - Immunization history:: Client reports receiving the 2nd dose of the Covid vaccine. - Social history:: Smoking status: Patient/guardian denies using tobacco. Screenin:22 Abuse screen: Denies threats or abuse. Nutritional screening: No deficits noted. ag7 Tuberculosis screening: No symptoms or risk factors identified. Fall Risk No fall in past 12 months (0 pts). No secondary diagnosis (0 pts). No IV (0 pts). Ambulatory Aid- Crutches/Cane/Walker (15 pts). Gait- Impaired (20 pts.). Mental Status- Oriented to own ability (0 pts). Total Rudolph Fall Scale indicates Low Risk Score (25-44 pts). Fall prevention measures have been instituted. Side Rails Up X 2 Placed close to Nursing Station Frequent Obs/Assesments occuring Family Present and informed to notify staff if they need to leave bedside As available Patient and Family Educated on Fall Prevention Program and strategies. Assessment: 01:19 General: Appears in no apparent distress. Behavior is calm, cooperative, appropriate ag7 for age. Pain: Complains of pain in lateral aspect of right knee Pain does not radiate. Pain currently is 10 out of 10 on a pain scale. Quality of pain is described as sharp, Pain began suddenly, Is continuous. Neuro: Level of Consciousness is awake, alert, obeys commands, Oriented to Appropriate for age. Cardiovascular: Heart tones S1 S2 present Capillary refill < 3 seconds in bilateral fingers Patient's skin is warm and dry. Respiratory: Airway is patent Trachea midline Respiratory effort is even, unlabored, Respiratory pattern is regular, symmetrical, Breath sounds are clear bilaterally. Musculoskeletal: Range of motion: limited in right knee Tenderness present in right leg Reports Pain when bearing weight to the right lower extremity, no numbness, no weakness, warm to touch, 1+ edema noted to bilateral lower extremity. 03:29 Reassessment: Patient and/or family updated on plan of care and expected duration. Pain vc1 level reassessed. Patient is alert, oriented x 3, equal unlabored respirations, skin warm/dry/pink. Vital Signs: 01:00 BP 130 / 97; Pulse 84; Resp 18; Temp 98.4(TE); Pulse Ox 98% on R/A; Weight 97.52 kg ll3 (R); Height 5 ft. 10 in. (177.80 cm) (R); Pain 10/10; 01:45 BP 130 / 86; Pulse 83; Resp 18; Pulse Ox 98% on R/A; vc1 02:45 BP 133 / 94; Pulse 81; Resp 17; Pulse Ox 97% on R/A; vc1 02:51 Pain 6/10; ag7 03:15 BP 133 / 94; Pulse 80; Resp 18; Pulse Ox 98% on R/A; vc1 01:00 Body Mass Index 30.85 (97.52 kg, 177.80 cm) ll3 ED Course: 07/25 23:57 Patient arrived in ED. kz 07/26 01:06 Triage completed. ll3 01:06 Arm band placed on left wrist. ll3 01:10 Kumar Velarde MD is Attending Physician. mh7 01:13 Alessandra Owens, SHIREEN is Primary Nurse. ag7 01:23 Patient has correct armband on for positive identification. Bed in low position. Call ag7 light in reach. Side rails up X 1. Adult w/ patient. 01:23 No provider procedures requiring assistance completed. ag7 01:48 Tib Fib Right XRAY In Process Unspecified. EDMS 01:48 Knee Right 3 View XRAY In Process Unspecified. EDMS 04:21 Patient did not have IV access during this emergency room visit. ag7 Administered Medications: 01:49 CANCELLED (wrong orderr): HYDROcodone-acetaminophen (5 mg-500 mg) 1 tabs PO once; RASS mh7 on ADMIN: Combtv4, Very Agttd3, Agttd2, Rstlss1, AlertClm0, Drwsy-1, Lt Sdtn-2, Mod Sdtn-3, Dp Sdtn-4, UnArsble-5 01:51 Drug: [place] (HYDROcodone-acetaminophen) 5 mg-325 mg 1 tabs Route: PO; ag7 02:51 Follow up: Pain 6/10; Response: No adverse reaction; Pain is decreased ag7 Outcome: 04:05 Discharge ordered by . mh7 04:20 Discharged to home with crutches. ag7 04:20 Condition: stable 04:20 Discharge instructions given to patient, Instructed on discharge instructions, follow up and referral plans. medication usage, Demonstrated understanding of instructions, follow-up care, medications, Prescriptions given X 1. 04:22 Patient left the ED. ag7 Signatures: Dispatcher [employer] EDMS Kumar Velarde MD MD 7 Andrea Seay RN RN ll3 Danielle Luis RN RN vc1 Neida Hugo Angela, RN RN ag7
[2021-07-26 04:32] VITALS: TEMP 98.4
[2021-07-26 04:46] VITALS: BP 133/94
[2021-07-26 04:49] VITALS: O2SAT 98
--- NOTE | 2021-07-26 19:57 | RAD REPORT ---
EXAM DESCRIPTION: RAD - Tib Fib Right - 07/26/2021 1:47 am CLINICAL HISTORY: 45 years Male PAIN TECHNIQUE: 2 x-ray views of the right tibia fibula were performed on 07/26/2021 at 1:34 AM. COMPARISON: Right ankle and right tibia fibula report from 07/07/2021. The images were not available for review. FINDINGS: Again demonstrated is a minimally displaced oblique fracture through the proximal right fi bula. There is mild irregularity along the superior pole of the patella which may be related to chron ic changes. There are minimal degenerative changes of the right knee joint and ankle joint. No additi onal acute fractures are identified. The knee joint and ankle joint are intact. No pathologic lytic o r sclerotic bone lesions are identified. There are chronic changes of the right midfoot and hindfoot with increased sclerosis, possible fragmentation and erosive change. The appearance suggests a possib le Charcot joint. Bone mineralization is normal. There is minimal suprapatellar soft tissue swelling. Occasional arterial vascular calcifications are noted. IMPRESSION: 1. Subacute minimally displaced oblique fracture through the proximal right fibula as noted on the prior study. 2. Mild irregularity along the superior pole of the patella which may be related to chronic changes . 3. Chronic changes of the right midfoot and hindfoot which may reflect a possible Charcot joint. 4. Mild suprapatellar soft tissue swelling. Electronically signed by: Yojana Sinha DO 07/26/2021 2:15 AM CDT Due to temporary technical issues with the PACS/Fluency reporting system, reports are being signed by the in house radiologists without review as a courtesy to insure prompt reporting. The interpreting radiologist is fully responsible for the content of the report.
--- NOTE | 2021-07-26 20:11 | RAD REPORT ---
EXAM DESCRIPTION: RAD - Knee Right 3 View - 07/26/2021 1:47 am CLINICAL HISTORY: 45 years, Male, PAIN COMPARISON: None. FINDINGS: 3 X-ray views of the right knee (Frontal, lateral and oblique views) were performed. There is a fracture along the right fibular head. There are no gross intraosseous lesions. No linda ss lytic the soft tissue abnormality is identified. There are mild degenerative changes 3 compartment s of the right knee. There is no joint effusion. There is no periostitis. Minimal vascular calcific ations. IMPRESSION: Right fibular head fracture. Electronically signed by: Hermann Dunaway MD 07/26/2021 2:07 AM CDT Due to temporary technical issues with the PACS/Fluency reporting system, reports are being signed by the in house radiologists without review as a courtesy to insure prompt reporting. The interpreting radiologist is fully responsible for the content of the report.
== END 2021-07-26 04:22 | disposition home or self-care (01) ==
LOC: ER 23:52
DX: S82.491A Other fracture of shaft of right fibula, initial encounter for closed fracture (principal); S80.01XA Contusion of right knee, initial encounter; W22.8XXA Striking against or struck by other objects, initial encounter; Y92.009 Unspecified place in unspecified non-institutional (private) residence as the place of occurrence of the external cause; Z95.810 Presence of automatic (implantable) cardiac defibrillator; Z95.818 Presence of other cardiac implants and grafts; Z86.73 Personal history of transient ischemic attack (TIA), and cerebral infarction without residual deficits; E11.9 Type 2 diabetes mellitus without complications
CPT/HCPCS: 99283

== ENCOUNTER 2021-08-07 17:45 | Inpatient (IN) | payer OTHER ==
--- OUTSIDE RECORDS SUMMARY | 2021-08-07 18:39 | XMS REPORT | Continuity of Care Document ---
:1975 Author Organization [facility] t Address [address] [place] [address] Care Team Providers Name Role Phone ALEXEI ENRIQUEZ Primary Care Physician Unavailable DIANE Attending Clinician Unavailable DR PATRICK Attending Clinician Unavailable LULU Attending Clinician [phone] SHELBY Attending Clinician [phone] DIANE Attending Clinician [phone] NURSE Attending Clinician Unavailable FRANZ Attending Clinician Unavailable OSEI Attending Clinician [phone] DR DIANE Attending Clinician Unavailable Venkatesh SCHULER, Kathlene Attending Clinician Ayden SCHULER Attending Clinician Nuvia Lugo MD Attending Clinician Jackie Nguyen MD Attending Clinician Deacon Nair MD Attending Clinician OMSTEFANI Attending Clinician Unavailable OMORI Attending Clinician [phone] IRIZARRY Attending Clinician Unavailable IRIZARRY Attending Clinician [phone] Ayden Serra MD Attending Clinician Landry SCHULER Attending Clinician Lilliam SCHULER Attending Clinician Neida Lugo MD Attending Clinician Warren Blunt MD Attending Clinician LUBNA Attending Clinician Unavailable LUBNA Attending Clinician [phone] JERRY HUMMEL Attending Clinician Unavailable AYDEN SERRA Attending Clinician Unavailable TARASHEALTH Attending Clinician Unavailable SIDDHARTHA Attending Clinician Unavailable ENRIQUE Attending Clinician [phone] JONAS Attending Clinician Unavailable MIMA MARQUIS Attending Clinician Unavailable RADHA MURGUIA Attending Clinician Unavailable KASSI KULKARNI Attending Clinician Unavailable MANAV Attending Clinician [phone] SWETHA Attending Clinician Unavailable JEFFY Attending Clinician Unavailable ISAURA Attending Clinician [phone] MOSESAMAR Attending Clinician Unavailable TIMA Attending Clinician Unavailable [...] Effective Date Expiration Date S ource 1000 [id number] 1959 00:00:00 0165 [id number] 1959 00:00:00 [facility] CARE - [id number] GENERIC - [id number] MEDICAID MEDICARE PART A [id number] 2019 \\T\\ B - MEDICARE 00:00:00 Problems Condition Condition Condition Status Onset Resolution Last Treating Co mments Source Name Details Category Date Date Treatment Clinician Date Diabetic Diabetic Disease [facility] 00 [facility] Acute on Acute on Disease [facility] 2017-03 [facility] congestive congestive 00:00: Me dical heart heart 00 Center failure, failure, unspecifie unspecifie d heart d heart failure failure type type CHF CHF Disease Active [facility] (congestiv (congestiv 6-13 [facility] k[facility] e heart e heart 00:00: Medical failure) failure) 00 Center Dyspnea, Dyspnea, Disease [facility] unspecifie unspecifie 6-13 [facility] d type d type 00:00: Medical 00 Center CHF CHF Disease Active [facility] exacerbati exacerbati 3-15 [facility]harth[facility] k[facility] on on 00:00: Medical 00 Center Acute on Acute on Disease [facility] systolic systolic 00:00: Medica l congestive congestive 00 Ce nter heart heart failure failure Acute on Acute on Disease Active 2016-[facility] congestive congestive 00:00: Me dical heart heart 00 Center failure, failure, unspecifie unspecifie d d congestive congestive heart heart failure failure type type Hypercalce Hypercalce Disease Active [facility] j[facility] jose 8-06 [facility] Chest pain Chest pain Disease Active 2015-[address] 0[facility] Unstable Unstable Disease Active 2015-[facility]ina [facility] Abnormal Abnormal Disease Active 2015-03 [facility] 00:[facility]: Medical [place] NSTEMI NSTEMI Disease Active 2015-[address] (non-ST (non-ST 0-12 [facility] elevated elevated 00:00: Medica l myocardial myocardial 00 Ce nter infarction infarction ) ) Acute CVA Acute CVA Disease Active 2013-[address] (cerebrova (cerebrova 0-30 Siddhartha kes scular scular 00:00: Medical accident) accident) 00 Cent er Infestatio Infestatio Disease Active Overview : [facility] by 10-17 [facility] Sarc[facility] 00:00: g of this edical scabiei scabiei 00 note Center might be different from the original. 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 UPDATED BY ICD10 SNOMED/IM O UPDATES Hypertensi Hypertensi Disease Active [facility] Diabetes Diabetes Disease Active [facility] mellitus mellitus [facility] Diabetic Diabetic Disease Active [facility] neuropathy neuropathy [facility] Hyperlipid Hyperlipid Disease Active [facility] emia emia [facility] Carpal Carpal Disease Active [facility] tunnel tunnel [facility] syndrome syndrome [facility] Allergies, Adverse Reactions, Alerts Allergy Allergy Status Severity Reaction(s) Onset Inactive Treating Comm ents Source Name Type Date Date Clinician NO KNOWN Allergy Active [facility] Social History Social Habit Start Date Stop Date Quantity Comments Source Alcohol intake 2019-07-03 [facility] 00:00:00 History of tobacco 2019-04-04 Current non-smoker [facility] use 00:00:00 Nutritional 2019-04-04 [facility] observable 00:00:00 Tobacco use and 2019-04-04 : No Details [facility] exposure 00:00:00 Available Quantity Details - : No Details Available Health-related 2019-04-04 [facility] Behavior 00:00:[address] [facility] Alcohol Frequency [facility] History SDOH [facility] Alcohol Std Drinks [facility] History SDOH [facility] Alcohol Binge Medical Matty ter Sex Assigned At Male [facility] Cigarettes smoked 2016-01-08 2016-01-[address] [facility] current (pack per 00:00:00 00:00:00 Medical Center day) - Reported Cigarette 2016-01-08 2016-01-[address] [facility] pack-years 00:00:00 00:00:00 [facility] Alcohol Comment 2012-10-15 2012-10-[address] [facility] 00:00:00 00:00:00 Medical Center Smoking Status Start Date Stop Date Source Unknown if ever smoked [facility] Former smoker 2020-04-26 00:00:00 2020-04-26 00:00:00 Located within [facility] Never smoker [facility] Medications Ordered Filled Start Stop Current Ordering Indication Dosage Frequency Signature Comments Components Source Medication Medication Date Date Medication? Clinician (SIG) Name Name carvedilol No 1{table Q12H take 1 Ac [facility] 25 mg 2-15 t} tablet by ealth tablet 00:00: oral route 00 2 times every day with food rosuvastati No 1{table Q1D take 1 A [facility] n 40 mg 2-15 t} tablet by ealth tablet 00:00: oral route 00 every day metolazone No take 1 [facility] 5 mg tablet 2-15 tablet by eal th 00:00: oral route 00 every day isosorbide No take 1 [facility] mononitrate 2-15 tablet (60 ea lth ER 60 mg 00:00: mg) by tablet,exte 00 oral route nded once daily release 24 in the hr morning gabapentin No 1{table Q8H take 1 [facility] 800 mg 2-15 t} tablet by ealth tablet 00:00: oral route 00 3 times every day clopidogrel No take 1 [facility] 75 mg 2-15 tablet (75 [facility]alth tablet 00:00: mg) by 00 oral route once daily bumetanide No take 1 [facility] 1 mg tablet 2-15 tablet (1 eal th 00:00: mg) by 00 oral route 2 times per day amlodipine No take 1 [facility] 5 mg tablet 2-15 tablet (5 eal th 00:00: mg) by 00 oral route once daily allopurinol No take 1/2 Dx: [facility] 100 mg 2-15 tablet (50 M10.449, eal th tablet 00:00: mg) by N18.32 00 oral route every OTHER day Aldactone No 1{table Q1D take 1 Acc [facility] 25 mg 2-15 t} tablet by ealth tablet 00:00: oral route 00 every day carvedilol No 1{table Q12H take 1 [facility] 25 mg 2-15 t} tablet by ealth tablet 00:00: oral route 00 2 times every day with food rosuvastati No 1{table Q1D take 1 A [facility] n 40 mg 2-15 t} tablet by ealth tablet 00:00: oral route 00 every day metolazone No take 1 [facility] 5 mg tablet 2-15 tablet by eal th 00:00: oral route 00 every day isosorbide No take 1 [facility] mononitrate 2-15 tablet (60 ea lth ER 60 mg 00:00: mg) by tablet,exte 00 oral route nded once daily release 24 in the hr morning gabapentin No 1{table Q8H take 1 Ac [facility] 800 mg 2-15 t} tablet by ealth tablet 00:00: oral route 00 3 times every day clopidogrel No take 1 Acce ss[facility] 75 mg 2-15 tablet (75 ealth tablet 00:00: mg) by 00 oral route once daily bumetanide No take 1 [facility] 1 mg tablet 2-15 tablet (1 eal th 00:00: mg) by 00 oral route 2 times per day amlodipine No take 1 [facility] 5 mg tablet 2-15 tablet (5 eal th 00:00: mg) by 00 oral route once daily allopurinol No take 1/2 Dx: Ac cess[facility] 100 mg 2-15 tablet (50 M10.449, eal th tablet 00:00: mg) by N18.32 00 oral route every OTHER day Aldactone No 1{table Q1D take 1 Acc ess[facility] 25 mg 2-15 t} tablet by ealth tablet 00:00: oral route 00 every day carvedilol No 1{table Q12H take 1 Ac cess[facility] 25 mg 2-15 t} tablet by ealth tablet 00:00: oral route 00 2 times every day with food rosuvastati No 1{table Q1D take 1 A ccessH n 40 mg 2-15 t} tablet by ealth tablet 00:00: oral route 00 every day metolazone No take 1 [facility]es [facility] 5 mg tablet 2-15 tablet by eal th 00:00: oral route 00 every day isosorbide No take 1 [facility]es [facility] mononitrate 2-15 tablet (60 ea lth ER 60 mg 00:00: mg) by tablet,exte 00 oral route nded once daily release 24 in the hr morning gabapentin No 1{table Q8H take 1 Ac cess[facility] 800 mg 2-15 t} tablet by ealth tablet 00:00: oral route 00 3 times every day clopidogrel No take 1 Acce ssH 75 mg 2-15 tablet (75 ealth tablet 00:00: mg) by 00 oral route once daily bumetanide No take 1 [facility] 1 mg tablet 2-15 tablet (1 eal th 00:00: mg) by 00 oral route 2 times per day amlodipine No take 1 [facility] 5 mg tablet 2-15 tablet (5 eal th 00:00: mg) by 00 oral route once daily allopurinol No take 1/2 Dx: Ac cess[facility] 100 mg 2-15 tablet (50 M10.449, eal th tablet 00:00: mg) by N18.32 00 oral route every OTHER day Aldactone No 1{table Q1D take 1 Acc ess[facility] 25 mg 2-15 t} tablet by ealth tablet 00:00: oral route 00 every day carvedilol No 1{table Q12H take 1 Ac cess[facility] 25 mg 2-15 t} tablet by ealth tablet 00:00: oral route 00 2 times every day with food amlodipine No take 1 [facility] 5 mg tablet 2-15 tablet (5 eal th 00:00: mg) by 00 oral route once daily allopurinol No take 1/2 Dx: Ac cess[facility] 100 mg 2-15 tablet (50 M10.449, eal th tablet 00:00: mg) by N18.32 00 oral route every OTHER day Aldactone No 1{table Q1D take 1 Acc [facility] 25 mg 2-15 t} tablet by ealth tablet 00:00: oral route 00 every day rosuvastati No 1{table Q1D take 1 A ccess[facility] n 40 mg 2-15 t} tablet by ealth tablet 00:00: oral route 00 every day metolazone No take 1 [facility]es [facility] 5 mg tablet 2-15 tablet by eal th 00:00: oral route 00 every day isosorbide No take 1 [facility]es [facility] mononitrate 2-15 tablet (60 ea lth ER 60 mg 00:00: mg) by tablet,exte 00 oral route nded once daily release 24 in the hr morning gabapentin 2021-0 No 1{table Q8H take 1 Ac cess[facility] 800 mg 2-15 t} tablet by ealth tablet 00:00: oral route 00 3 times every day clopidogrel 0 No take 1 Acce ss[facility] 75 mg 2-15 tablet (75 ealth tablet 00:00: mg) by 00 oral route once daily bumetanide No take 1 [facility]es [facility] 1 mg tablet 2-15 tablet (1 eal th 00:00: mg) by 00 oral route 2 times per day carvedilol No 1{table Q12H take 1 Ac cess[facility] 25 mg 2-15 t} tablet by ealth tablet 00:00: oral route 00 2 times every day with food rosuvastati No 1{table Q1D take 1 A ccess[facility] n 40 mg 2-15 t} tablet by ealth tablet 00:00: oral route 00 every day metolazone No take 1 Acces [facility] 5 mg tablet 2-15 tablet by eal th 00:00: oral route 00 every day isosorbide No take 1 Acces [facility] mononitrate 2-15 tablet (60 ea lth ER 60 mg 00:00: mg) by tablet,exte 00 oral route nded once daily release 24 in the hr morning gabapentin 2021-0 No 1{table Q8H take 1 Ac cess[facility] 800 mg 2-15 t} tablet by ealth tablet 00:00: oral route 00 3 times every day clopidogrel No take 1 Acce ssH 75 mg 2-15 tablet (75 ealth tablet 00:00: mg) by 00 oral route once daily bumetanide No take 1 [facility] 1 mg tablet 2-15 tablet (1 eal th 00:00: mg) by 00 oral route 2 times per day amlodipine No take 1 [facility] 5 mg tablet 2-15 tablet (5 eal th 00:00: mg) by 00 oral route once daily allopurinol No take 1/2 Dx: Ac cessH 100 mg 2-15 tablet (50 M10.449, eal th tablet 00:00: mg) by N18.32 00 oral route every OTHER day Aldactone No 1{table Q1D take 1 Acc ess[facility] 25 mg 2-15 t} tablet by ealth tablet 00:00: oral route 00 every day carvedilol No 1{table Q12H take 1 Ac cess[facility] 25 mg 2-15 t} tablet by ealth tablet 00:00: oral route 00 2 times every day with food rosuvastati No 1{table Q1D take 1 A ccess[facility] n 40 mg 2-15 t} tablet by ealth tablet 00:00: oral route 00 every day metolazone No take 1 [facility]es [facility] 5 mg tablet 2-15 tablet by eal th 00:00: oral route 00 every day isosorbide No take 1 Acces [facility] mononitrate 2-15 tablet (60 ea lth ER 60 mg 00:00: mg) by tablet,exte 00 oral route nded once daily release 24 in the hr morning gabapentin No 1{table Q8H take 1 Ac cess[facility] 800 mg 2-15 t} tablet by ealth tablet 00:00: oral route 00 3 times every day clopidogrel No take 1 Acce ss[facility] 75 mg 2-15 tablet (75 ealth tablet 00:00: mg) by 00 oral route once daily bumetanide No take 1 [facility] 1 mg tablet 2-15 tablet (1 eal th 00:00: mg) by 00 oral route 2 times per day amlodipine No take 1 [facility] 5 mg tablet 2-15 tablet (5 eal th 00:00: mg) by 00 oral route once daily allopurinol No take 1/2 Dx: Ac cess[facility] 100 mg 2-15 tablet (50 M10.449, eal th tablet 00:00: mg) by N18.32 00 oral route every OTHER day Aldactone No 1{table Q1D take 1 Acc ess[facility] 25 mg 2-15 t} tablet by ealth tablet 00:00: oral route 00 every day Humalog 2021-0 2021- No inject [facility] KwikPen 2-15 -29 5-10 Units ealth (U-100) 00:00: 00:00 by Insulin 100 00 :00 Subcutaneo unit/mL us route 3 subcutaneou times per s day on a medium sliding scale three times a day before meals Humalog 2021- No inject [facility] KwikPen 2-15 -29 5-10 Units ealth (U-100) 00:00: 00:00 by Insulin 100 00 :00 Subcutaneo unit/mL us route 3 subcutaneou times per s day on a medium sliding scale three times a day before meals Humalog 2021- No inject [facility] KwikPen 2-15 -29 5-10 Units ealth (U-100) 00:00: 00:00 by Insulin 100 00 :00 Subcutaneo unit/mL us route 3 subcutaneou times per s day on a medium sliding scale three times a day before meals Humalog 2021- No inject [facility] KwikPen 2-15 -29 5-10 Units ealth (U-100) 00:00: 00:00 by Insulin 100 00 :00 Subcutaneo unit/mL us route 3 subcutaneou times per s day on a medium sliding scale three times a day before meals Humalog 2021- No inject [facility] KwikPen 2-15 -29 5-10 Units ealth (U-100) 00:00: 00:00 by Insulin 100 00 :00 Subcutaneo unit/mL us route 3 subcutaneou times per s day on a medium sliding scale three times a day before meals Humalog 2021- No inject [facility] KwikPen 2-15 -29 5-10 Units ealth (U-100) 00:00: 00:00 by Insulin 100 00 :00 Subcutaneo unit/mL us route 3 subcutaneou times per s day on a medium sliding scale three times a day before meals Aldactone 2021- No 1{table Q1D take 1 Ac cess[facility] 25 mg -05-13 t} tablet by ealth tablet 00:00: 00:00 oral route 00 :00 every day carvedilol 2021- No TAKE ONE Ac cess[facility] 12.5 mg 2-15 02-15 TABLET BY ealth tablet 00:00: 00:00 MOUTH 00 :00 TWICE A DAY WITH FOOD Aldactone 2022-0 2- No 1{table Q1D take 1 Ac cess[facility] 25 mg 2-15 02-15 t} tablet by ealth tablet 00:00: 00:00 oral route 00 :00 every day carvedilol 2-0 2- No TAKE ONE Ac cess[facility] 12.5 mg 2-15 02-15 TABLET BY ealth tablet 00:00: 00:00 MOUTH 00 :00 TWICE A DAY WITH FOOD Aldactone 2022-0 2021- No 1{table Q1D take 1 Ac cess[facility] 25 mg 2-15 02-15 t} tablet by ealth tablet 00:00: 00:00 oral route 00 :00 every day carvedilol 2-0 2021- No TAKE ONE Ac cess[facility] 12.5 mg 2-15 02-15 TABLET BY ealth tablet 00:00: 00:00 MOUTH 00 :00 TWICE A DAY WITH FOOD Aldactone 2-0 2021- No 1{table Q1D take 1 Ac cess[facility] 25 mg 2-15 02-15 t} tablet by ealth tablet 00:00: 00:00 oral route 00 :00 every day carvedilol 2-0 2021- No TAKE ONE Ac cess[facility] 12.5 mg 2-15 02-15 TABLET BY ealth tablet 00:00: 00:00 MOUTH 00 :00 TWICE A DAY WITH FOOD Aldactone 2022-0 2021- No 1{table Q1D take 1 Ac cess[facility] 25 mg 2-15 02-15 t} tablet by ealth tablet 00:00: 00:00 oral route 00 :00 every day carvedilol 2-0 2- No TAKE ONE Ac cess[facility] 12.5 mg 2-15 02-15 TABLET BY ealth tablet 00:00: 00:00 MOUTH 00 :00 TWICE A DAY WITH FOOD Aldactone 2022-0 2- No 1{table Q1D take 1 Ac cess[facility] 25 mg 2-15 02-15 t} tablet by ealth tablet 00:00: 00:00 oral route 00 :00 every day carvedilol 2-0 2- No TAKE ONE Ac cess[facility] 12.5 mg 2-15 02-15 TABLET BY ealth tablet 00:00: 00:00 MOUTH 00 :00 TWICE A DAY WITH FOOD Aldactone 2022-0 2- No 1{table Q1D take 1 Ac cess[facility] 25 mg 2-15 02-15 t} tablet by ealth tablet 00:00: 00:00 oral route 00 :00 every day carvedilol 2-0 2- No TAKE ONE Ac cess[facility] 12.5 mg 2-15 02-15 TABLET BY ealth tablet 00:00: 00:00 MOUTH 00 :00 TWICE A DAY WITH FOOD Aldactone 2022-0 2- No 1{table Q1D take 1 Ac cess[facility] 25 mg 2-15 02-15 t} tablet by ealth tablet 00:00: 00:00 oral route 00 :00 every day carvedilol 2-0 2- No TAKE ONE Ac cess[facility] 12.5 mg 2-15 02-15 TABLET BY ealth tablet 00:00: 00:00 MOUTH 00 :00 TWICE A DAY WITH FOOD Aldactone 2-0 2021- No 1{table Q1D take 1 Ac cess[facility] 25 mg 2-15 02-15 t} tablet by ealth tablet 00:00: 00:00 oral route 00 :00 every day carvedilol 2-0 2- No TAKE ONE Ac cess[facility] 12.5 mg 2-15 02-15 TABLET BY ealth tablet 00:00: 00:00 MOUTH 00 :00 TWICE A DAY WITH FOOD Aldactone 2022-0 2- No 1{table Q1D take 1 Ac cess[facility] 25 mg 2-15 02-15 t} tablet by ealth tablet 00:00: 00:00 oral route 00 :00 every day carvedilol 2-0 2- No TAKE ONE Ac cess[facility] 12.5 mg 2-15 02-15 TABLET BY ealth tablet 00:00: 00:00 MOUTH 00 :00 TWICE A DAY WITH FOOD Aldactone 2022-0 2- No 1{table Q1D take 1 Ac cess[facility] 25 mg 2-15 02-15 t} tablet by ealth tablet 00:00: 00:00 oral route 00 :00 every day carvedilol 2-0 2- No TAKE ONE Ac cess[facility] 12.5 mg 2-15 02-15 TABLET BY ealth tablet 00:00: 00:00 MOUTH 00 :00 TWICE A DAY WITH FOOD Aldactone 2021-0 2021- No 1{table Q1D take 1 Ac cess[facility] 25 mg 2-15 02-15 t} tablet by ealth tablet 00:00: 00:00 oral route 00 :00 every day carvedilol 2021-0 2021- No TAKE ONE Ac cess[facility] 12.5 mg 2-15 02-15 TABLET BY ealth tablet 00:00: 00:00 MOUTH 00 :00 TWICE A DAY WITH FOOD CARVEDILOL 2021-0 2021- No TAKE ONE Ac cess[facility] 12.5 MG 2-14 02-15 TABLET BY ealth TABLET 00:00: 00:00 MOUTH 00 :00 TWICE A DAY WITH FOOD CARVEDILOL 2021-0 2021- No TAKE ONE Ac cess[facility] 12.5 MG 2-14 02-15 TABLET BY ealth TABLET 00:00: 00:00 MOUTH 00 :00 TWICE A DAY WITH FOOD CARVEDILOL 2021-0 2021- No TAKE ONE Ac cess[facility] 12.5 MG 2-14 02-15 TABLET BY ealth TABLET 00:00: 00:00 MOUTH 00 :00 TWICE A DAY WITH FOOD CARVEDILOL 2021-0 2021- No TAKE ONE Ac cess[facility] 12.5 MG 2-14 02-15 TABLET BY ealth TABLET 00:00: 00:00 MOUTH 00 :00 TWICE A DAY WITH FOOD CARVEDILOL 2021-0 2021- No TAKE ONE Ac cess[facility] 12.5 MG 2-14 02-15 TABLET BY ealth TABLET 00:00: 00:00 MOUTH 00 :00 TWICE A DAY WITH FOOD CARVEDILOL 2021-0 2021- No TAKE ONE Ac cess[facility] 12.5 MG 2-14 02-15 TABLET BY ealth TABLET 00:00: 00:00 MOUTH 00 :00 TWICE A DAY WITH FOOD rosuvastati 2021-0 No 1{table Q1D take 1 A ccess[facility] n 40 mg 2-03 t} tablet by ealth tablet 00:00: oral route 00 every day rosuvastati 2021-0 2021- No 1{table Q1D take 1 [facility] n 40 mg 2-03 02-15 t} tablet by ealth tablet 00:00: 00:00 oral route 00 :00 every day rosuvastati 2021-0 2022- No 1{table Q1D take 1 [facility] n 40 mg 2-05 28-15 t} tablet by ealth tablet 00:00: 00:00 oral route 00 :00 every day rosuvastati 2021-0 2022- No 1{table Q1D take 1 [facility] n 40 mg 2-05 28-15 t} tablet by ealth tablet 00:00: 00:00 oral route 00 :00 every day rosuvastati 2021-0 2022- No 1{table Q1D take 1 [facility] n 40 mg 2-05 28-15 t} tablet by ealth tablet 00:00: 00:00 oral route 00 :00 every day rosuvastati 2021-0 202- No 1{table Q1D take 1 [facility] n 40 mg 2-05 28-15 t} tablet by ealth tablet 00:00: 00:00 oral route 00 :00 every day rosuvastati 2021-0 2022- No 1{table Q1D take 1 [facility] n 40 mg 2-05 28-15 t} tablet by ealth tablet 00:00: 00:00 oral route 00 :00 every day isosorbide 2021-0 No take 1 [facility] mononitrate 1-05 tablet (60 ea lth ER 60 mg 00:00: mg) by tablet,exte 00 oral route nded once daily release 24 in the hr morning clopidogrel 2021-0 No take 1 Acce ssH 75 mg 1-05 tablet (75 ealth tablet 00:00: mg) by 00 oral route once daily allopurinol No take 1/2 Dx: Ac cess[facility] 100 mg 1-05 tablet (50 M10.449, eal th tablet 00:00: mg) by N18.32 00 oral route every OTHER day isosorbide 0 No take 1 [facility]es [facility] mononitrate 1-05 tablet (60 ea lth ER 60 mg 00:00: mg) by tablet,exte 00 oral route nded once daily release 24 in the hr morning clopidogrel 2021-0 No take 1 [facility]ce ss[facility] 75 mg 1-05 tablet (75 ealth tablet 00:00: mg) by 00 oral route once daily allopurinol No take 1/2 Dx: Ac cess[facility] 100 mg 1-05 tablet (50 M10.449, eal th tablet 00:00: mg) by N18.32 00 oral route every OTHER day isosorbide 2021-2021- No take 1 [facility]ce ss[facility] mononitrate 1-05 02-15 tablet (60 e alth ER 60 mg 00:00: 00:00 mg) by tablet,exte 00 :00 oral route nded once daily release 24 in the hr morning clopidogrel 2021-2021- No take 1 Acc [facility] 75 mg 1-05 02-15 tablet (75 ealth tablet 00:00: 00:00 mg) by 00 :00 oral route once daily allopurinol 2021-2021- No take 1/2 Dx: A ccess[facility] 100 mg 1-05 02-15 tablet (50 M10.449, ea lth tablet 00:00: 00:00 mg) by N18.32 00 :00 oral route every OTHER day isosorbide 2021-2021- No take 1 Acce ssH mononitrate 1-05 02-15 tablet (60 e alth ER 60 mg 00:00: 00:00 mg) by tablet,exte 00 :00 oral route nded once daily release 24 in the hr morning clopidogrel 2021-2021- No take 1 Acc [facility] 75 mg 1-05 02-15 tablet (75 ealth tablet 00:00: 00:00 mg) by 00 :00 oral route once daily allopurinol 2021-2021- No take 1/2 Dx: A ccess[facility] 100 mg 1-05 02-15 tablet (50 M10.449, ea lth tablet 00:00: 00:00 mg) by N18.32 00 :00 oral route every OTHER day isosorbide 2021-2021- No take 1 Acce ss[facility] mononitrate 1-05 02-15 tablet (60 e alth ER 60 mg 00:00: 00:00 mg) by tablet,exte 00 :00 oral route nded once daily release 24 in the hr morning clopidogrel 2021-2021- No take 1 Acc [facility] 75 mg 1-05 02-15 tablet (75 ealth tablet 00:00: 00:00 mg) by 00 :00 oral route once daily allopurinol 2021-2021- No take 1/2 Dx: A ccess[facility] 100 mg 1-05 02-15 tablet (50 M10.449, ea lth tablet 00:00: 00:00 mg) by N18.32 00 :00 oral route every OTHER day isosorbide 2021-2021- No take 1 Acce ss[facility] mononitrate 1-05 02-15 tablet (60 e alth ER 60 mg 00:00: 00:00 mg) by tablet,exte 00 :00 oral route nded once daily release 24 in the hr morning clopidogrel 2021-2021- No take 1 Acc ess[facility] 75 mg 1-05 02-15 tablet (75 ealth tablet 00:00: 00:00 mg) by 00 :00 oral route once daily allopurinol 2021- No take 1/2 Dx: A ccessH 100 mg 1-05 02-15 tablet (50 M10.449, ea lth tablet 00:00: 00:00 mg) by N18.32 00 :00 oral route every OTHER day isosorbide 2021-2021- No take 1 Acce ssH mononitrate 1-05 02-15 tablet (60 e alth ER 60 mg 00:00: 00:00 mg) by tablet,exte 00 :00 oral route nded once daily release 24 in the hr morning clopidogrel 2021-2021- No take 1 Acc [facility] 75 mg 1-05 02-15 tablet (75 ealth tablet 00:00: 00:00 mg) by 00 :00 oral route once daily allopurinol 2021-2021- No take 1/2 Dx: A ccessH 100 mg 1-05 02-15 tablet (50 M10.449, ea lth tablet 00:00: 00:00 mg) by N18.32 00 :00 oral route every OTHER day isosorbide 2021-2021- No take 1 Acce ssH mononitrate 1-05 02-15 tablet (60 e alth ER 60 mg 00:00: 00:00 mg) by tablet,exte 00 :00 oral route nded once daily release 24 in the hr morning clopidogrel 2021-2021- No take 1 Acc ess[facility] 75 mg 1-05 02-15 tablet (75 ealth tablet 00:00: 00:00 mg) by 00 :00 oral route once daily allopurinol 0 2021- No take 1/2 Dx: A ccessH 100 mg 1-05 02-15 tablet (50 M10.449, ea lth tablet 00:00: 00:00 mg) by N18.32 00 :00 oral route every OTHER day metolazone 2020-03 No take 1 [facility] 5 mg tablet 2-30 tablet by [facility] 00:00: oral route 00 every day bumetanide 2020-03 No take 1 [facility] 1 mg tablet 2-30 tablet (1 [facility] 00:00: mg) by 00 oral route 2 times per day rosuvastati 2020-03 No 1{table Q1D take 1 [facility] n 40 mg 2-30 t} tablet by [facility] tablet 00:00: oral route 00 every day carvedilol 2020-03 No 1{table Q12H take 1 [facility] 12.5 mg 2-30 t} tablet by [facility] tablet 00:00: oral route 00 2 times every day with food amlodipine 2020-03 No take 1 [facility] 5 mg tablet 2-30 tablet (5 eal 00:00: mg) by 00 oral route once daily metolazone 2020-03 No take 1 [facility] 5 mg tablet 2-30 tablet by [facility] 00:00: oral route 00 every day bumetanide 2020-03 No take 1 [facility] 1 mg tablet 2-30 tablet (1 eal 00:00: mg) by 00 oral route 2 times per day rosuvastati 2020-03 No 1{table Q1D take 1 [facility] n 40 mg 2-30 t} tablet by [facility] tablet 00:00: oral route 00 every day carvedilol 2020-03 No 1{table Q12H take 1 [facility] 12.5 mg 2-30 t} tablet by [facility] tablet 00:00: oral route 00 2 times every day with food amlodipine 2020-03 No take 1 [facility] 5 mg tablet 2-30 tablet (5 [facility] 00:00: mg) by 00 oral route once daily metolazone 2020-03 No take 1 [facility] 5 mg tablet 2-30 tablet by [facility] 00:00: oral route 00 every day bumetanide 2020-03 No take 1 [facility] 1 mg tablet 2-30 tablet (1 [facility] 00:00: mg) by 00 oral route 2 times per day carvedilol 2020-03 No 1{table Q12H take 1 [facility] 12.5 mg 2-30 t} tablet by [facility] tablet 00:00: oral route 00 2 times every day with food amlodipine 2020-03 No take 1 [facility] 5 mg tablet 2-30 tablet (5 [facility] 00:00: mg) by 00 oral route once daily metolazone 2020-03- No take 1 [facility] 5 mg tablet 2-30 -15 tablet by [facility] 00:00: 00:00 oral route 00 :00 every day bumetanide 2020-03- No take 1 [facility] 1 mg tablet 2-30 -15 tablet (1 [facility] 00:00: 00:00 mg) by 00 :00 oral route 2 times per day amlodipine 2020-03- No take 1 [facility] 5 mg tablet 2-30 -15 tablet (5 [facility] 00:00: 00:00 mg) by 00 :00 oral route once daily metolazone 2020-03- No take 1 [facility] 5 mg tablet 2-30 -15 tablet by [facility] 00:00: 00:00 oral route 00 :00 every day bumetanide 2020-03- No take 1 [facility] 1 mg tablet 2-30 -15 tablet (1 [facility] 00:00: 00:00 mg) by 00 :00 oral route 2 times per day amlodipine 2020-03- No take 1 [facility] 5 mg tablet 2-30 -15 tablet (5 [facility] 00:00: 00:00 mg) by 00 :00 oral route once daily metolazone 2020-03- No take 1 [facility] 5 mg tablet 2-30 -15 tablet by [facility] 00:00: 00:00 oral route 00 :00 every day bumetanide 2020-03- No take 1 [facility] 1 mg tablet 2-30 -15 tablet (1 [facility] 00:00: 00:00 mg) by 00 :00 oral route 2 times per day amlodipine 2020-03- No take 1 [facility] 5 mg tablet 2-30 -15 tablet (5 [facility] 00:00: 00:00 mg) by 00 :00 oral route once daily metolazone 2020-03- No take 1 [facility] 5 mg tablet 2-15 tablet by [facility] 00:00: 00:00 oral route 00 :00 every day bumetanide 2020-03- No take 1 [facility] 1 mg tablet 2-15 tablet (1 [facility] 00:00: 00:00 mg) by 00 :00 oral route 2 times per day amlodipine 2020-03- No take 1 [facility] 5 mg tablet 2-15 tablet (5 [facility] 00:00: 00:00 mg) by 00 :00 oral route once daily metolazone 2020-03- No take 1 [facility] 5 mg tablet 2-15 tablet by [facility] 00:00: 00:00 oral route 00 :00 every day bumetanide 2020-03- No take 1 [facility] 1 mg tablet 2-15 tablet (1 [facility] 00:00: 00:00 mg) by 00 :00 oral route 2 times per day amlodipine 2020-03- No take 1 [facility] 5 mg tablet 2-15 tablet (5 [facility] 00:00: 00:00 mg) by 00 :00 oral route once daily metolazone 2020-03- No take 1 [facility] 5 mg tablet 230 -15 tablet by [facility] 00:00: 00:00 oral route 00 :00 every day bumetanide 2020-03- No take 1 [facility] 1 mg tablet 230 -15 tablet (1 e[facility] 00:00: 00:00 mg) by 00 :00 oral route 2 times per day amlodipine 2020-03- No take 1 [facility] 5 mg tablet 230 -15 tablet (5 [facility] 00:00: 00:00 mg) by 00 :00 oral route once daily carvedilol 2020-03- No 1{table Q12H take 1 [facility] 12.5 mg 2-30 02-14 t} tablet by [facility] tablet 00:00: 00:00 oral route 00 :00 2 times every day with food carvedilol 2020-03- No 1{table Q12H take 1 [facility] 12.5 mg 2-30 02-14 t} tablet by [facility] tablet 00:00: 00:00 oral route 00 :00 2 times every day with food carvedilol 2020-03- No 1{table Q12H take 1 [facility] 12.5 mg 2-30 02-14 t} tablet by [facility] tablet 00:00: 00:00 oral route 00 :00 2 times every day with food carvedilol 2020-03- No 1{table Q12H take 1 [facility] 12.5 mg 2-30 02-14 t} tablet by [facility] tablet 00:00: 00:00 oral route 00 :00 2 times every day with food carvedilol 2020-03- No 1{table Q12H take 1 [facility] 12.5 mg 2-30 02-14 t} tablet by [facility] tablet 00:00: 00:00 oral route 00 :00 2 times every day with food carvedilol 2020-03- No 1{table Q12H take 1 [facility] 12.5 mg 2-30 02-14 t} tablet by [facility] tablet 00:00: 00:00 oral route 00 :00 2 times every day with food rosuvastati 2020-03- No 1{table Q1D take 1 [facility] n 40 mg 2-30 02-03 t} tablet by [facility] tablet 00:00: 00:00 oral route 00 :00 every day rosuvastati 2020-03- No 1{table Q1D take 1 [facility] n 40 mg 2-30 02-03 t} tablet by [facility] tablet 00:00: 00:00 oral route 00 :00 every day rosuvastati 2020-03- No 1{table Q1D take 1 [facility] n 40 mg 2-30 -03 t} tablet by [facility] tablet 00:00: 00:00 oral route 00 :00 every day rosuvastati 2020-03- No 1{table Q1D take 1 [facility] n 40 mg 2-30 -03 t} tablet by [facility] tablet 00:00: 00:00 oral route 00 :00 every day rosuvastati 2020-03- No 1{table Q1D take 1 [facility] n 40 mg 2-30 -03 t} tablet by [facility] tablet 00:00: 00:00 oral route 00 :00 every day rosuvastati 2020-03- No 1{table Q1D take 1 [facility] n 40 mg 2-30 -03 t} tablet by [facility] tablet 00:00: 00:00 oral route 00 :00 every day rosuvastati 2020-03- No 1{table Q1D take 1 [facility] n 40 mg 230 -03 t} tablet by [facility] tablet 00:00: 00:00 oral route 00 :00 every day allopurinol 2020-03 No take 1/2 Dx: [facility] 100 mg 1-05 tablet (50 M10.449, [facility]al [facility] tablet 00:00: mg) by [id number] 00 oral route every OTHER day allopurinol 2020-03 No take 1/2 Dx: [facility] 100 mg 1-05 tablet (50 M10.449, [facility] tablet 00:00: mg) by [id number] 00 oral route every OTHER day allopurinol 2020-03 No take 1/2 Dx: [facility] 100 mg 1-05 tablet (50 M10.449, eal th tablet 00:00: mg) by [id number] 00 oral route every OTHER day allopurinol 2020-03 No take 1/2 Dx: [facility] 100 mg 1-05 tablet (50 M10.449, eal th tablet 00:00: mg) by [id number] 00 oral route every OTHER day Vitamin D2 2020-03- No 1{capsu Q1W take 1 [facility] 1,250 mcg -04-24} capsule by [facility] (50,000 00:00: 00:00 oral route unit) 00 :00 every capsule week for 12 weeks Vitamin D2 2020-03- No 1{capsu Q1W take 1 [facility] 1,250 mcg 1-05 -27 le} capsule by [facility] (50,000 00:00: 00:00 oral route unit) 00 :00 every capsule week for 12 weeks Vitamin D2 2020-03- No 1{capsu Q1W take 1 [facility] 1,250 mcg -05 -27 le} capsule by [facility] (50,000 00:00: 00:00 oral route unit) 00 :00 every capsule week for 12 weeks Vitamin D2 2020-03- No 1{capsu Q1W take 1 [facility] 1,250 mcg 1-05 -27 le} capsule by [facility] (50,000 00:00: 00:00 oral route unit) 00 :00 every capsule week for 12 weeks Vitamin D2 2020-03- No 1{capsu Q1W take 1 [facility] 1,250 mcg 1-05 -27 le} capsule by [facility] (50,000 00:00: 00:00 oral route unit) 00 :00 every capsule week for 12 weeks Vitamin D2 2020-03- No 1{capsu Q1W take 1 [facility] 1,250 mcg 1-05 -27 le} capsule by [facility] (50,000 00:00: 00:00 oral route unit) 00 :00 every capsule week for 12 weeks Vitamin D2 2020-03- No 1{capsu Q1W take 1 [facility] 1,250 mcg 1-05 -27 le} capsule by [facility] (50,000 00:00: 00:00 oral route unit) 00 :00 every capsule week for 12 weeks Vitamin D2 2020-03- No 1{capsu Q1W take 1 [facility] 1,250 mcg 1-05 -27 le} capsule by [facility] (50,000 00:00: 00:00 oral route unit) 00 :00 every capsule week for 12 weeks Vitamin D2 2020-03- No 1{capsu Q1W take 1 [facility] 1,250 mcg 1-05 -27 le} capsule by [facility] (50,000 00:00: 00:00 oral route unit) 00 :00 every capsule week for 12 weeks Vitamin D2 2020-03- No 1{capsu Q1W take 1 [facility] 1,250 mcg -04-24 le} capsule by [facility] (50,000 00:00: 00:00 oral route unit) 00 :00 every capsule week for 12 weeks Vitamin D2 2020-03- No 1{capsu Q1W take 1 [facility] 1,250 mcg -04-24 le} capsule by [facility] (50,000 00:00: 00:00 oral route unit) 00 :00 every capsule week for 12 weeks Vitamin D2 2020-03- No 1{capsu Q1W take 1 A [facility] 1,250 mcg 04-02 le} capsule by [facility] (50,000 00:00: 00:00 oral route unit) 00 :00 every capsule week for 12 weeks allopurinol 2020-03- No take 12 Dx: A [facility]cess[facility] 100 mg 1-05 01-05 tablet (50 M10.449, [facility] tablet 00:00: 00:00 mg) by [id number] 00 :00 oral route every OTHER day allopurinol 2020-03- No take 1/2 Dx: A [facility] 100 mg 1-05 01-05 tablet (50 M10.449, ea lth tablet 00:00: 00:00 mg) by [id number] 00 :00 oral route every OTHER day allopurinol 2020-03- No take 1/2 Dx: A [facility]cess[facility] 100 mg 1-05 01-05 tablet (50 M10.449, ea lth tablet 00:00: 00:00 mg) by [id number] 00 :00 oral route every OTHER day allopurinol 2020-03- No take 1/2 Dx: A [facility] 100 mg 1-05 01-05 tablet (50 M10.449, ea lth tablet 00:00: 00:00 mg) by [id number] 00 :00 oral route every OTHER day allopurinol 2020-03- No take 1/2 Dx: A [facility] 100 mg 1-05 01-05 tablet (50 M10.449, ea lth tablet 00:00: 00:00 mg) by [id number] 00 :00 oral route every OTHER day allopurinol 2020-03- No take 1/2 Dx: [facility] 100 mg 1-05 -05 tablet (50 M10.449, ea lth tablet 00:00: 00:00 mg) by [id number] 00 :00 oral route every OTHER day allopurinol 2020-03- No take 1/2 Dx: A [facility] 100 mg 1-05 -05 tablet (50 M10.449, ea lth tablet 00:00: 00:00 mg) by [id number] 00 :00 oral route every OTHER day allopurinol 2020-03- No take 1/2 Dx: A [facility] 100 mg 1-05 -05 tablet (50 M10.449, ea lth tablet 00:00: 00:00 mg) by [id number] 00 :00 oral route every OTHER day prednisone 2020-03 No take 2 [facility] 20 mg 1-03 tablet by [facility] tablet 00:00: oral route 00 every day x 5 days Levemir 2020-03 No 50U Q12H inject 50 [facility] FlexTouch 1-03 unit by ealth [email or web address]-100 00:00: subcutaneo Insulin 100 00 us route 2 unit/mL (3 times mL) every day subcutaneou s pen bumetanide 2020-03 No take 1 [facility] 1 mg tablet 1-03 tablet (1 [facility] 00:00: mg) by 00 oral route 2 times per day metolazone 2020-03 No take 1 [facility] 5 mg tablet 1-03 tablet by [facility] 00:00: oral route 00 every day gabapentin 2020-03 No 1{table Q8H take 1 [facility] 800 mg 1-03 t} tablet by [facility] tablet 00:00: oral route 00 3 times every day clopidogrel 2020-03 No take 1 [facility] 75 mg 1-03 tablet (75 [facility] tablet 00:00: mg) by 00 oral route once daily carvedilol 2020-03 No 1{table Q12H take 1 [facility] 12.5 mg 1-03 t} tablet by [facility] tablet 00:00: oral route 00 2 times every day with food amlodipine 2020-03 No take 1 [facility] 5 mg tablet 1-03 tablet (5 [facility] 00:00: mg) by 00 oral route once daily isosorbide 2020-03 No take 1 [facility] mononitrate 1-03 tablet (60 ea lth ER 60 mg 00:00: mg) by tablet,exte 00 oral route nded once daily release 24 in the hr morning rosuvastati 2020-03 No 1{table Q1D take 1 [facility] n 40 mg 1-03 t} tablet by [facility] tablet 00:00: oral route 00 every day prednisone 2020-03 No take 2 [facility] 20 mg 1-03 tablet by [facility] tablet 00:00: oral route 00 every day x 5 days Levemir 2020-03 No 50U Q12H inject 50 [facility] FlexTouch 1-03 unit by ealth U-100 00:00: subcutaneo Insulin 100 00 us route 2 unit/mL (3 times mL) every day subcutaneou s pen bumetanide 2020-03 No take 1 [facility] 1 mg tablet 1-03 tablet (1 [facility] 00:00: mg) by 00 oral route 2 times per day metolazone 2020-03 No take 1 [facility] 5 mg tablet 1-03 tablet by [facility] 00:00: oral route 00 every day gabapentin 2020-03 No 1{table Q8H take 1 [facility] 800 mg 1-03 t} tablet by [facility] tablet 00:00: oral route 00 3 times every day clopidogrel 2020-03 No take 1 [facility] 75 mg 1-03 tablet (75 [facility] tablet 00:00: mg) by 00 oral route once daily carvedilol 2020-03 No 1{table Q12H take 1 [facility] 12.5 mg 1-03 t} tablet by [facility] tablet 00:00: oral route 00 2 times every day with food amlodipine 2020-03 No take 1 [facility] 5 mg tablet 1-03 tablet (5 [facility] 00:00: mg) by 00 oral route once daily isosorbide 2020-03 No take 1 [facility] mononitrate 1-03 tablet (60 ea lth ER 60 mg 00:00: mg) by tablet,exte 00 oral route nded once daily release 24 in the hr morning rosuvastati 2020-03 No 1{table Q1D take 1 [facility] n 40 mg 1-03 t} tablet by [facility] tablet 00:00: oral route 00 every day prednisone 2020-03 No take 2 [facility] 20 mg 1-03 tablet by [facility] tablet 00:00: oral route 00 every day x 5 days Levemir 2020-03 No 50U Q12H inject 50 [facility] FlexTouch 1-03 unit by ealth U-100 00:00: subcutaneo Insulin 100 00 us route 2 unit/mL (3 times mL) every day subcutaneou s pen bumetanide 2020-03 No take 1 [facility] 1 mg tablet 1-03 tablet (1 [facility] 00:00: mg) by 00 oral route 2 times per day metolazone 2020-03 No take 1 [facility] 5 mg tablet 1-03 tablet by [facility] 00:00: oral route 00 every day gabapentin 2020-03 No 1{table Q8H take 1 [facility] 800 mg 1-03 t} tablet by [facility] tablet 00:00: oral route 00 3 times every day clopidogrel 2020-03 No take 1 [facility] 75 mg 1-03 tablet (75 [facility] tablet 00:00: mg) by 00 oral route once daily carvedilol 2020-03 No 1{table Q12H take 1 [facility] 12.5 mg 1-03 t} tablet by [facility] tablet 00:00: oral route 00 2 times every day with food amlodipine 2020-03 No take 1 [facility] 5 mg tablet 1-03 tablet (5 [facility] 00:00: mg) by 00 oral route once daily isosorbide 2020-03 No take 1 [facility] mononitrate 1-03 tablet (60 ea l[facility] ER 60 mg 00:00: mg) by tablet,exte 00 oral route nded once daily release 24 in the hr morning rosuvastati 2020-03 No 1{table Q1D take 1 [facility] n 40 mg 1-03 t} tablet by [facility] tablet 00:00: oral route 00 every day prednisone 2020-03 No take 2 [facility] 20 mg 1-03 tablet by [facility] tablet 00:00: oral route 00 every day x 5 days Levemir 2020-03 No 50U Q12H inject 50 [facility] FlexTouch 1-03 unit by e[facility] U-100 00:00: subcutaneo Insulin 100 00 us route 2 unit/mL (3 times mL) every day subcutaneou s pen gabapentin 2020-03 No 1{table Q8H take 1 [facility] 800 mg 1-03 t} tablet by [facility] tablet 00:00: oral route 00 3 times every day clopidogrel 2020-03 No take 1 [facility] 75 mg 1-03 tablet (75 [facility] tablet 00:00: mg) by 00 oral route once daily isosorbide 2020-03 No take 1 [facility] mononitrate 1-03 tablet (60 ea lth ER 60 mg 00:00: mg) by tablet,exte 00 oral route nded once daily release 24 in the hr morning prednisone 2020-03 No take 2 [facility] 20 mg 1-03 tablet by [facility] tablet 00:00: oral route 00 every day x 5 days Levemir 2020-03 No 50U Q12H inject 50 [facility] FlexTouch 1-03 unit by ealth U-100 00:00: subcutaneo Insulin 100 00 us route 2 unit/mL (3 times mL) every day subcutaneou s pen gabapentin 2020-03 No 1{table Q8H take 1 [facility] 800 mg 1-03 t} tablet by [facility] tablet 00:00: oral route 00 3 times every day prednisone 2020-03 No take 2 [facility] 20 mg 1-03 tablet by [facility] tablet 00:00: oral route 00 every day x 5 days Levemir 2020-03 No 50U Q12H inject 50 [facility] FlexTouch 1-03 unit by e[facility] U-100 00:00: subcutaneo Insulin 100 00 us route 2 unit/mL (3 times mL) every day subcutaneou s pen gabapentin 2020-03 No 1{table Q8H take 1 [facility] 800 mg 1-03 t} tablet by [facility] tablet 00:00: oral route 00 3 times every day Levemir 2020-03 No 50U Q12H inject 50 [facility] FlexTouch 1-03 unit by e[facility] U-100 00:00: subcutaneo Insulin 100 00 us route 2 unit/mL (3 times mL) every day subcutaneou s pen Levemir 2020-03 No 50U Q12H inject 50 [facility] FlexTouch 1-03 unit by e[facility] U-100 00:00: subcutaneo Insulin 100 00 us route 2 unit/mL (3 times mL) every day subcutaneou s pen Levemir 2020-03 No 50U Q12H inject 50 [facility] FlexTouch 1-03 unit by e[facility] U-100 00:00: subcutaneo Insulin 100 00 us route 2 unit/mL (3 times mL) every day subcutaneou s pen Levemir 2020-03 No 50U Q12H inject 50 [facility] FlexTouch 1-03 unit by e[facility] U-100 00:00: subcutaneo Insulin 100 00 us route 2 unit/mL (3 times mL) every day subcutaneou s pen Levemir 2020-03 No 50U Q12H inject 50 [facility] FlexTouch 1-03 unit by e[facility] U-100 00:00: subcutaneo Insulin 100 00 us route 2 unit/mL (3 times mL) every day subcutaneou s pen Levemir 2020-03 No 50U Q12H inject 50 [facility] FlexTouch 1-03 unit by e[facility] U-100 00:00: subcutaneo Insulin 100 00 us route 2 unit/mL (3 times mL) every day subcutaneou s pen prednisone 2020-03- No take 2 [facility] 20 mg 03-3115 tablet by [facility] tablet 00:00: 00:00 oral route 00 :00 every day x 5 days gabapentin 2020-03- No 1{table Q8H take 1 A [facility]cess[facility] 800 mg 03-31-15 t} tablet by [facility] tablet 00:00: 00:00 oral route 00 :00 3 times every day prednisone 2020-03- No take 2 [facility] 20 mg 03-31-15 tablet by [facility] tablet 00:00: 00:00 oral route 00 :00 every day x 5 days gabapentin 2020- 2022- No 1{table Q8H take 1 [facility] 800 mg 1-03 -15 t} tablet by [facility] tablet 00:00: 00:00 oral route 00 :00 3 times every day prednisone 2020- 2022- No take 2 [facility] 20 mg -05 28-15 tablet by [facility] tablet 00:00: 00:00 oral route 00 :00 every day x 5 days gabapentin 2020-2- No 1{table Q8H take 1 [facility] 800 mg 1-05 28-15 t} tablet by [facility] tablet 00:00: 00:00 oral route 00 :00 3 times every day prednisone 2020-2021- No take 2 [facility] 20 mg -05 28-15 tablet by [facility] tablet 00:00: 00:00 oral route 00 :00 every day x 5 days gabapentin 2020-2- No 1{table Q8H take 1 A [facility] 800 mg -03 -15 t} tablet by [facility] tablet 00:00: 00:00 oral route 00 :00 3 times every day prednisone 2020-2- No take 2 [facility] 20 mg -05 28-15 tablet by [facility] tablet 00:00: 00:00 oral route 00 :00 every day x 5 days gabapentin 2020- 2022- No 1{table Q8H take 1 [facility] 800 mg -03 -15 t} tablet by [facility] tablet 00:00: 00:00 oral route 00 :00 3 times every day prednisone 2020-2- No take 2 [facility] 20 mg -05 28-15 tablet by [facility] tablet 00:00: 00:00 oral route 00 :00 every day x 5 days gabapentin 2020-2- No 1{table Q8H take 1 [facility] 800 mg 1-03 -15 t} tablet by [facility] tablet 00:00: 00:00 oral route 00 :00 3 times every day clopidogrel 2020-2- No take 1 [facility] 75 mg -05 27-05 tablet (75 [facility] tablet 00:00: 00:00 mg) by 00 :00 oral route once daily isosorbide 2021-1 2022- No take 1 [facility] mononitrate 03-31 tablet (60 e alth ER 60 mg 00:00: 00:00 mg) by tablet,exte 00 :00 oral route nded once daily release 24 in the hr morning clopidogrel 2020-03- No take 1 [facility] 75 mg 03-31 tablet (75 [facility] tablet 00:00: 00:00 mg) by 00 :00 oral route once daily isosorbide 2020-03- No take 1 [facility] mononitrate 03-31 tablet (60 e alth ER 60 mg 00:00: 00:00 mg) by tablet,exte 00 :00 oral route nded once daily release 24 in the hr morning clopidogrel 2020-03- No take 1 [facility] 75 mg 03-31 tablet (75 [facility] tablet 00:00: 00:00 mg) by 00 :00 oral route once daily isosorbide 2020-03- No take 1 [facility] mononitrate 03-31 tablet (60 e al[facility] ER 60 mg 00:00: 00:00 mg) by tablet,exte 00 :00 oral route nded once daily release 24 in the hr morning clopidogrel 2020-03- No take 1 [facility] 75 mg 03-31 tablet (75 [facility] tablet 00:00: 00:00 mg) by 00 :00 oral route once daily isosorbide 2020-03- No take 1 [facility] mononitrate 03-31 tablet (60 e alth ER 60 mg 00:00: 00:00 mg) by tablet,exte 00 :00 oral route nded once daily release 24 in the hr morning clopidogrel 2020-03- No take 1 [facility] 75 mg 03-31 tablet (75 [facility] tablet 00:00: 00:00 mg) by 00 :00 oral route once daily isosorbide 2020-03- No take 1 [facility] mononitrate 03-3105 tablet (60 e alth ER 60 mg 00:00: 00:00 mg) by tablet,exte 00 :00 oral route nded once daily release 24 in the hr morning isosorbide 2020-03- No take 1 [facility] mononitrate 03-31 tablet (60 e alth ER 60 mg 00:00: 00:00 mg) by tablet,exte 00 :00 oral route nded once daily release 24 in the hr morning clopidogrel 2020-03- No take 1 [facility] 75 mg 03-31 tablet (75 [facility] tablet 00:00: 00:00 mg) by 00 :00 oral route once daily clopidogrel 2020-03- No take 1 [facility] 75 mg 03-31 tablet (75 [facility] tablet 00:00: 00:00 mg) by 00 :00 oral route once daily isosorbide 2020-03- No take 1 [facility] mononitrate 03-31 tablet (60 e alth ER 60 mg 00:00: 00:00 mg) by tablet,exte 00 :00 oral route nded once daily release 24 in the hr morning clopidogrel 2020-03- No take 1 [facility] 75 mg 03-31 tablet (75 [facility] tablet 00:00: 00:00 mg) by 00 :00 oral route once daily isosorbide 2020-03- No take 1 [facility] mononitrate 03-31 tablet (60 e alth ER 60 mg 00:00: 00:00 mg) by tablet,exte 00 :00 oral route nded once daily release 24 in the hr morning bumetanide 2020-03- No take 1 [facility] 1 mg tablet 03-31 tablet (1 ea lth 00:00: 00:00 mg) by 00 :00 oral route 2 times per day metolazone 2020-03- No take 1 [facility] 5 mg tablet 03-31 tablet by ea lth 00:00: 00:00 oral route 00 :00 every day carvedilol 2020-03- No 1{table Q12H take 1 A [facility] 12.5 mg 03-31 t} tablet by [facility] tablet 00:00: 00:00 oral route 00 :00 2 times every day with food amlodipine 2020-03- No take 1 [facility] 5 mg tablet 03-3130 tablet (5 ea l[facility] 00:00: 00:00 mg) by 00 :00 oral route once daily rosuvastati 2020-03- No 1{table Q1D take 1 [facility] n 40 mg 03-31 t} tablet by [facility] tablet 00:00: 00:00 oral route 00 :00 every day bumetanide 2020-03- No take 1 [facility] 1 mg tablet 03-31 tablet (1 ea lth 00:00: 00:00 mg) by 00 :00 oral route 2 times per day metolazone 2020-03- No take 1 [facility] 5 mg tablet 03-31 tablet by ea lth 00:00: 00:00 oral route 00 :00 every day carvedilol 2020-03- No 1{table Q12H take 1 A [facility] 12.5 mg 03-31 t} tablet by [facility] tablet 00:00: 00:00 oral route 00 :00 2 times every day with food amlodipine 2020-03- No take 1 [facility] 5 mg tablet 03-31 tablet (5 ea lth 00:00: 00:00 mg) by 00 :00 oral route once daily rosuvastati 2020-03- No 1{table Q1D take 1 [facility] n 40 mg 03-31 t} tablet by [facility] tablet 00:00: 00:00 oral route 00 :00 every day bumetanide 2020-03- No take 1 [facility] 1 mg tablet 03-31 tablet (1 ea lth 00:00: 00:00 mg) by 00 :00 oral route 2 times per day metolazone 2020-03- No take 1 [facility] 5 mg tablet 03-3130 tablet by ea lth 00:00: 00:00 oral route 00 :00 every day carvedilol 2020-03- No 1{table Q12H take 1 A [facility] 12.5 mg 03-3130 t} tablet by [facility]alth tablet 00:00: 00:00 oral route 00 :00 2 times every day with food amlodipine 2020-03- No take 1 [facility] 5 mg tablet 03-31 tablet (5 ea lth 00:00: 00:00 mg) by 00 :00 oral route once daily rosuvastati 2020-03- No 1{table Q1D take 1 [facility] n 40 mg 03-31 t} tablet by [facility] tablet 00:00: 00:00 oral route 00 :00 every day bumetanide 2020-03- No take 1 [facility] 1 mg tablet 03-31 tablet (1 ea lth 00:00: 00:00 mg) by 00 :00 oral route 2 times per day metolazone 2020-03- No take 1 [facility] 5 mg tablet 03-31 tablet by ea lth 00:00: 00:00 oral route 00 :00 every day carvedilol 2020-03- No 1{table Q12H take 1 A [facility] 12.5 mg 03-31 t} tablet by [facility] tablet 00:00: 00:00 oral route 00 :00 2 times every day with food amlodipine 2020-03- No take 1 [facility] 5 mg tablet 03-31 tablet (5 ea lth 00:00: 00:00 mg) by 00 :00 oral route once daily rosuvastati 2020-03- No 1{table Q1D take 1 [facility] n 40 mg 03-31 t} tablet by [facility] tablet 00:00: 00:00 oral route 00 :00 every day bumetanide 2020-03- No take 1 [facility] 1 mg tablet 03-31 tablet (1 ea lth 00:00: 00:00 mg) by 00 :00 oral route 2 times per day metolazone 2020-03- No take 1 [facility] 5 mg tablet 03-3130 tablet by ea lth 00:00: 00:00 oral route 00 :00 every day carvedilol 2020-03- No 1{table Q12H take 1 [facility] 12.5 mg 03-31 t} tablet by ealth tablet 00:00: 00:00 oral route 00 :00 2 times every day with food amlodipine 2020-03- No take 1 [facility] 5 mg tablet 03-31 tablet (5 ea lth 00:00: 00:00 mg) by 00 :00 oral route once daily rosuvastati 2020-03- No 1{table Q1D take 1 [facility] n 40 mg 03-31 t} tablet by ealth tablet 00:00: 00:00 oral route 00 :00 every day bumetanide 2020-03- No take 1 [facility] 1 mg tablet 03-31 tablet (1 ea lth 00:00: 00:00 mg) by 00 :00 oral route 2 times per day metolazone 2020-03- No take 1 [facility] 5 mg tablet 03-31 tablet by ea lth 00:00: 00:00 oral route 00 :00 every day carvedilol 2020-03- No 1{table Q12H take 1 [facility] 12.5 mg 03-31 t} tablet by [facility] tablet 00:00: 00:00 oral route 00 :00 2 times every day with food amlodipine 2020-03- No take 1 [facility] 5 mg tablet 03-31 tablet (5 ea lth 00:00: 00:00 mg) by 00 :00 oral route once daily rosuvastati 2020-03- No 1{table Q1D take 1 [facility] n 40 mg 03-31 t} tablet by [facility] tablet 00:00: 00:00 oral route 00 :00 every day rosuvastati 2020-03- No 1{table Q1D take 1 [facility] n 40 mg 03-31 t} tablet by [facility] tablet 00:00: 00:00 oral route 00 :00 every day bumetanide 2020-03- No take 1 [facility] 1 mg tablet 03-31 tablet (1 ea lth 00:00: 00:00 mg) by 00 :00 oral route 2 times per day metolazone 2020-03- No take 1 [facility] 5 mg tablet 03-31 tablet by e[facility] 00:00: 00:00 oral route 00 :00 every day carvedilol 2020-03- No 1{table Q12H take 1 [facility] 12.5 mg 03-31 t} tablet by [facility] tablet 00:00: 00:00 oral route 00 :00 2 times every day with food amlodipine 2020-03- No take 1 [facility] 5 mg tablet 03-31 tablet (5 ea lth 00:00: 00:00 mg) by 00 :00 oral route once daily bumetanide 2020-03- No take 1 [facility] 1 mg tablet 03-31 tablet (1 ea lth 00:00: 00:00 mg) by 00 :00 oral route 2 times per day metolazone 2020-03- No take 1 [facility] 5 mg tablet 03-31 tablet by e[facility] 00:00: 00:00 oral route 00 :00 every day carvedilol 2020-03- No 1{table Q12H take 1 [facility] 12.5 mg 03-31 t} tablet by [facility] tablet 00:00: 00:00 oral route 00 :00 2 times every day with food amlodipine 2020-03- No take 1 [facility] 5 mg tablet 03-31 tablet (5 ea lth 00:00: 00:00 mg) by 00 :00 oral route once daily rosuvastati 2020-03- No 1{table Q1D take 1 [facility] n 40 mg 03-31 t} tablet by [facility] tablet 00:00: 00:00 oral route 00 :00 every day bumetanide 2020-03- No take 1 [facility] 1 mg tablet 03-31 tablet (1 ea lth 00:00: 00:00 mg) by 00 :00 oral route 2 times per day metolazone 2020-03- No take 1 [facility] 5 mg tablet 03-31 tablet by e[facility] 00:00: 00:00 oral route 00 :00 every day carvedilol 2020-03- No 1{table Q12H take 1 [facility] 12.5 mg 03-3130 t} tablet by [facility] tablet 00:00: 00:00 oral route 00 :00 2 times every day with food amlodipine 2020-03- No take 1 [facility] 5 mg tablet 03-3130 tablet (5 ea lth 00:00: 00:00 mg) by 00 :00 oral route once daily rosuvastati 2020-03- No 1{table Q1D take 1 [facility] n 40 mg 03-3130 t} tablet by [facility] tablet 00:00: 00:00 oral route 00 :00 every day cyclobenzap 2020-0 No 1{table BID take 1 [facility] rine 5 mg 9-07 t} tablet by [facility] tablet 00:00: oral route 00 2 times every day as needed for low back pain cyclobenzap 2020-0 No 1{table BID take 1 [facility] rine 5 mg 9-07 t} tablet by [facility] tablet 00:00: oral route 00 2 times every day as needed for low back pain cyclobenzap 2020-0 No 1{table BID take 1 [facility] rine 5 mg 9-07 t} tablet by [facility] tablet 00:00: oral route 00 2 times every day as needed for low back pain cyclobenzap 2020-0 No 1{table BID take 1 [facility] rine 5 mg 9-07 t} tablet by [facility] tablet 00:00: oral route 00 2 times every day as needed for low back pain cyclobenzap 2020-0 No 1{table BID take 1 [facility] rine 5 mg 9-07 t} tablet by [facility] tablet 00:00: oral route 00 2 times every day as needed for low back pain cyclobenzap 2020-0 No 1{table BID take 1 [facility] rine 5 mg 9-07 t} tablet by [facility] tablet 00:00: oral route 00 2 times every day as needed for low back pain cyclobenzap 2020-0 No 1{table BID take 1 [facility] rine 5 mg 9-07 t} tablet by [facility] tablet 00:00: oral route 00 2 times every day as needed for low back pain cyclobenzap 2021-0 No 1{table BID take 1 [facility] rine 5 mg 9-07 t} tablet by [facility] tablet 00:00: oral route 00 2 times every day as needed for low back pain cyclobenzap 2021-0 No 1{table BID take 1 [facility] rine 5 mg 9-07 t} tablet by [facility] tablet 00:00: oral route 00 2 times every day as needed for low back pain cyclobenzap 2021-0 No 1{table BID take 1 [facility] rine 5 mg 9-07 t} tablet by [facility] tablet 00:00: oral route 00 2 times every day as needed for low back pain cyclobenzap 2021-0 No 1{table BID take 1 [facility] rine 5 mg 9-07 t} tablet by [facility] tablet 00:00: oral route 00 2 times every day as needed for low back pain cyclobenzap 2021-0 No 1{table BID take 1 [facility] rine 5 mg 9-07 t} tablet by [facility] tablet 00:00: oral route 00 2 times every day as needed for low back pain cyclobenzap 2021-0 No 1{table BID take 1 [facility] rine 5 mg 9-07 t} tablet by [facility] tablet 00:00: oral route 00 2 times every day as needed for low back pain cyclobenzap 2021-0 No 1{table BID take 1 [facility] rine 5 mg 9-07 t} tablet by [facility] tablet 00:00: oral route 00 2 times every day as needed for low back pain cyclobenzap 2021-0 No 1{table BID take 1 [facility] rine 5 mg 9-07 t} tablet by [facility] tablet 00:00: oral route 00 2 times every day as needed for low back pain cyclobenzap 2021-0 No 1{table BID take 1 [facility] rine 5 mg 9-07 t} tablet by [facility] tablet 00:00: oral route 00 2 times every day as needed for low back pain cyclobenzap 2021-0 No 1{table BID take 1 [facility] rine 5 mg 9-07 t} tablet by [facility] tablet 00:00: oral route 00 2 times every day as needed for low back pain cyclobenzap 2020-0 No 1{table BID take 1 [facility] rine 5 mg 9-07 t} tablet by [facility] tablet 00:00: oral route 00 2 times every day as needed for low back pain rosuvastati 2020-0 No 1{table Q1D take 1 [facility] n 40 mg 8-07 t} tablet by [facility] tablet 00:00: oral route 00 every day rosuvastati 2020-0 No 1{table Q1D take 1 [facility] n 40 mg 8-07 t} tablet by [facility] tablet 00:00: oral route 00 every day rosuvastati 2020-0 No 1{table Q1D take 1 [facility] n 40 mg 8-07 t} tablet by [facility] tablet 00:00: oral route 00 every day rosuvastati 2020-0 No 1{table Q1D take 1 [facility] n 40 mg 8-07 t} tablet by [facility] tablet 00:00: oral route 00 every day rosuvastati 2020-0 No 1{table Q1D take 1 [facility] n 40 mg 8-07 t} tablet by [facility] tablet 00:00: oral route 00 every day rosuvastati 2020-0 No 1{table Q1D take 1 [facility] n 40 mg 8-07 t} tablet by [facility] tablet 00:00: oral route 00 every day rosuvastati 2020-0 No 1{table Q1D take 1 [facility] n 40 mg 8-07 t} tablet by [facility] tablet 00:00: oral route 00 every day rosuvastati 2020-0 No 1{table Q1D take 1 [facility] n 40 mg 8-07 t} tablet by [facility] tablet 00:00: oral route 00 every day rosuvastati 2020-0 2021- No 1{table Q1D take 1 [facility] 40 mg 8-07 11-03 t} tablet by [facility] tablet 00:00: 00:00 oral route 00 :00 every day rosuvastati 202-0 2021- No 1{table Q1D take 1 [facility] n 40 mg 8-07 11-03 t} tablet by [facility] tablet 00:00: 00:00 oral route 00 :00 every day rosuvastati 2021-0 2021- No 1{table Q1D take 1 [facility] 40 mg 11-02 t} tablet by [facility] tablet 00:00: 00:00 oral route 00 :00 every day rosuvastati 2021-0 2021- No 1{table Q1D take 1 [facility] 40 mg 11-02 t} tablet by [facility] tablet 00:00: 00:00 oral route 00 :00 every day rosuvastati 2021-0 2021- No 1{table Q1D take 1 [facility] 40 mg 11-02 t} tablet by [facility] tablet 00:00: 00:00 oral route 00 :00 every day rosuvastati 2021-0 2021- No 1{table Q1D take 1 [facility] 40 mg 11-02 t} tablet by [facility] tablet 00:00: 00:00 oral route 00 :00 every day rosuvastati 202-0 2021- No 1{table Q1D take 1 [facility] 40 mg 11-02 t} tablet by [facility] tablet 00:00: 00:00 oral route 00 :00 every day rosuvastati 2021-0 2021- No 1{table Q1D take 1 [facility] 40 mg 11-02 t} tablet by [facility] tablet 00:00: 00:00 oral route 00 :00 every day rosuvastati 2021-0 2021- No 1{table Q1D take 1 [facility] 40 mg 11-02 t} tablet by [facility] tablet 00:00: 00:00 oral route 00 :00 every day rosuvastati 2021-0 2021- No 1{table Q1D take 1 [facility] 40 mg 11-02 t} tablet by [facility] tablet 00:00: 00:00 oral route 00 :00 every day rosuvastati 2021-0 2021- No 1{table Q1D take 1 [facility] 40 mg 11-02 t} tablet by [facility] tablet 00:00: 00:00 oral route 00 :00 every day rosuvastati 202-0 2021- No 1{table Q1D take 1 [facility] n 40 mg 11-02 t} tablet by [facility] tablet 00:00: 00:00 oral route 00 :00 every day Vitamin D2 2020- No 1{capsu Q1W take 1 [facility] 1,250 mcg 11-02 le} capsule by [facility] (50,000 00:00: 00:00 oral route unit) 00 :00 every capsule week for 12 weeks Vitamin D2 2020- No 1{capsu Q1W take 1 [facility] 1,250 mcg 11-02 le} capsule by [facility] (50,000 00:00: 00:00 oral route unit) 00 :00 every capsule week for 12 weeks Vitamin D2 2020- No 1{capsu Q1W take 1 [facility] 1,250 mcg 11-02 le} capsule by [facility] (50,000 00:00: 00:00 oral route unit) 00 :00 every capsule week for 12 weeks Vitamin D2 2020- No 1{capsu Q1W take 1 [facility] 1,250 mcg 11-02 le} capsule by [facility] (50,000 00:00: 00:00 oral route unit) 00 :00 every capsule week for 12 weeks Vitamin D2 2020- No 1{capsu Q1W take 1 [facility] 1,250 mcg 11-02 le} capsule by [facility] (50,000 00:00: 00:00 oral route unit) 00 :00 every capsule week for 12 weeks Vitamin D2 2020- No 1{capsu Q1W take 1 [facility] 1,250 mcg 11-02 le} capsule by [facility] (50,000 00:00: 00:00 oral route unit) 00 :00 every capsule week for 12 weeks Vitamin D2 2020- No 1{capsu Q1W take 1 [facility] 1,250 mcg 11-02 le} capsule by [facility] (50,000 00:00: 00:00 oral route unit) 00 :00 every capsule week for 12 weeks Vitamin D2 2020- No 1{capsu Q1W take 1 [facility] 1,250 mcg 11-02 le} capsule by [facility] (50,000 00:00: 00:00 oral route unit) 00 :00 every capsule week for 12 weeks Vitamin D2 2020- No 1{capsu Q1W take 1 [facility] 1,250 mcg 11-02 le} capsule by [facility] (50,000 00:00: 00:00 oral route unit) 00 :00 every capsule week for 12 weeks Vitamin D2 2020- No 1{capsu Q1W take 1 [facility] 1,250 mcg 8-01-24 le} capsule by [facility] (50,000 00:00: 00:00 oral route unit) 00 :00 every capsule week for 12 weeks Vitamin D2 2020- No 1{capsu Q1W take 1 [facility] 1,250 mcg 11-02 le} capsule by [facility] (50,000 00:00: 00:00 oral route unit) 00 :00 every capsule week for 12 weeks Vitamin D2 2020- No 1{capsu Q1W take 1 [facility] 1,250 mcg 11-02 le} capsule by [facility] (50,000 00:00: 00:00 oral route unit) 00 :00 every capsule week for 12 weeks Vitamin D2 2020- No 1{capsu Q1W take 1 [facility] 1,250 mcg 11-02 le} capsule by [facility] (50,000 00:00: 00:00 oral route unit) 00 :00 every capsule week for 12 weeks Vitamin D2 2020- No 1{capsu Q1W take 1 [facility] 1,250 mcg 801-24 le} capsule by [facility] (50,000 00:00: 00:00 oral route unit) 00 :00 every capsule week for 12 weeks Vitamin D2 2020- No 1{capsu Q1W take 1 [facility] 1,250 mcg 8 10- le} capsule by [facility] (50,000 00:00: 00:00 oral route unit) 00 :00 every capsule week for 12 weeks Vitamin D2 2020- No 1{capsu Q1W take 1 [facility] 1,250 mcg 8- 10-29 le} capsule by [facility] (50,000 00:00: 00:00 oral route unit) 00 :00 every capsule week for 12 weeks Vitamin D2 2020- No 1{capsu Q1W take 1 [facility] 1,250 mcg 11-02 le} capsule by [facility] (50,000 00:00: 00:00 oral route unit) 00 :00 every capsule week for 12 weeks Vitamin D2 202- No 1{capsu Q1W take 1 [facility] 1,250 mcg 11-02 le} capsule by [facility] (50,000 00:00: 00:00 oral route unit) 00 :00 every capsule week for 12 weeks Vitamin D2 2020- No 1{capsu Q1W take 1 [facility] 1,250 mcg 11-02 le} capsule by [facility] (50,000 00:00: 00:00 oral route unit) 00 :00 every capsule week for 12 weeks Vitamin D2 2020- No 1{capsu Q1W take 1 [facility] 1,250 mcg 11-02 le} capsule by [facility] (50,000 00:00: 00:00 oral route unit) 00 :00 every capsule week for 12 weeks tramadol 50 No 1{table Q12H take 1 Dx: [facility] mg tablet 10-29 t} tablet by [email or web address], e alth 00:00: oral route [email or web address], 00 every 12 M14.679, hours as E11.621, needed E11.40 amlodipine No take 1 [facility] 5 mg tablet 8-03 tablet (5 eal th 00:00: mg) by 00 oral route once daily carvedilol No 1{table Q12H take 1 [facility] 12.5 mg 8-03 t} tablet by [facility] tablet 00:00: oral route 00 2 times every day with food clopidogrel No take 1 [facility] 75 mg 8-03 tablet (75 [facility] tablet 00:00: mg) by 00 oral route once daily isosorbide No take 1 [facility] mononitrate 8-03 tablet (60 ea lth ER 60 mg 00:00: mg) by tablet,exte 00 oral route nded once daily release 24 in the hr morning metolazone No take 1 [facility] 5 mg tablet 8-03 tablet by [facility] 00:00: oral route 00 every day bumetanide No take 1 [facility] 1 mg tablet 8-03 tablet (1 eal th 00:00: mg) by 00 oral route 2 times per day gabapentin No 1{table Q8H take 1 [facility] 800 mg 8-03 t} tablet by [facility] tablet 00:00: oral route 00 3 times every day tramadol 50 No 1{table Q12H take 1 Dx: [facility] mg tablet 8-03 t} tablet by [email or web address], e alth 00:00: oral route [email or web address], 00 every 12 M14.679, hours as E11.621, needed E11.40 amlodipine No take 1 [facility] 5 mg tablet 8-03 tablet (5 eal 00:00: mg) by 00 oral route once daily carvedilol No 1{table Q12H take 1 [facility] 12.5 mg 8-03 t} tablet by [facility] tablet 00:00: oral route 00 2 times every day with food clopidogrel No take 1 [facility] 75 mg 8-03 tablet (75 [facility] tablet 00:00: mg) by 00 oral route once daily isosorbide No take 1 [facility] mononitrate 8-03 tablet (60 ea lth ER 60 mg 00:00: mg) by tablet,exte 00 oral route nded once daily release 24 in the hr morning metolazone No take 1 [facility] 5 mg tablet 8-03 tablet by [facility] th 00:00: oral route 00 every day bumetanide No take 1 [facility] 1 mg tablet 8-03 tablet (1 eal th 00:00: mg) by 00 oral route 2 times per day gabapentin No 1{table Q8H take 1 [facility] 800 mg 8-03 t} tablet by [facility] tablet 00:00: oral route 00 3 times every day tramadol 50 No 1{table Q12H take 1 Dx: [facility] mg tablet 8-03 t} tablet by [email or web address], e alth 00:00: oral route [email or web address], 00 every 12 M14.679, hours as E11.621, needed E11.40 amlodipine No take 1 [facility] 5 mg tablet 8-03 tablet (5 eal th 00:00: mg) by 00 oral route once daily carvedilol No 1{table Q12H take 1 [facility] 12.5 mg 8-03 t} tablet by [facility] tablet 00:00: oral route 00 2 times every day with food clopidogrel No take 1 [facility] 75 mg 8-03 tablet (75 [facility] tablet 00:00: mg) by 00 oral route once daily isosorbide No take 1 [facility] mononitrate 8-03 tablet (60 ea lth ER 60 mg 00:00: mg) by tablet,exte 00 oral route nded once daily release 24 in the hr morning metolazone No take 1 [facility] 5 mg tablet 8-03 tablet by [facility] th 00:00: oral route 00 every day bumetanide No take 1 [facility] 1 mg tablet 8-03 tablet (1 eal th 00:00: mg) by 00 oral route 2 times per day gabapentin No 1{table Q8H take 1 [facility] 800 mg 8-03 t} tablet by [facility] tablet 00:00: oral route 00 3 times every day tramadol 50 No 1{table Q12H take 1 Dx: [facility] mg tablet 8-03 t} tablet by [email or web address], e alth 00:00: oral route [email or web address], 00 every 12 M14.679, hours as E11.621, needed E11.40 amlodipine No take 1 [facility] 5 mg tablet 8-03 tablet (5 eal th 00:00: mg) by 00 oral route once daily carvedilol No 1{table Q12H take 1 [facility] 12.5 mg 8-03 t} tablet by [facility] tablet 00:00: oral route 00 2 times every day with food clopidogrel No take 1 [facility] 75 mg 8-03 tablet (75 [facility] tablet 00:00: mg) by 00 oral route once daily isosorbide No take 1 [facility] mononitrate 8-03 tablet (60 ea lth ER 60 mg 00:00: mg) by tablet,exte 00 oral route nded once daily release 24 in the hr morning metolazone No take 1 [facility] 5 mg tablet 8-03 tablet by [facility] 00:00: oral route 00 every day bumetanide No take 1 [facility] 1 mg tablet 8-03 tablet (1 eal th 00:00: mg) by 00 oral route 2 times per day gabapentin No 1{table Q8H take 1 [facility] 800 mg 8-03 t} tablet by [facility] tablet 00:00: oral route 00 3 times every day tramadol 50 No 1{table Q12H take 1 Dx: [facility] mg tablet - t} tablet by [email or web address], e alth 00:00: oral route [email or web address], 00 every 12 M14.679, hours as E11.621, needed E11.40 amlodipine No take 1 [facility] 5 mg tablet 8-03 tablet (5 eal th 00:00: mg) by 00 oral route once daily carvedilol No 1{table Q12H take 1 [facility] 12.5 mg 8-03 t} tablet by [facility] tablet 00:00: oral route 00 2 times every day with food clopidogrel No take 1 [facility] 75 mg 8-03 tablet (75 [facility] tablet 00:00: mg) by 00 oral route once daily isosorbide No take 1 [facility] mononitrate 8-03 tablet (60 ea lth ER 60 mg 00:00: mg) by tablet,exte 00 oral route nded once daily release 24 in the hr morning metolazone No take 1 [facility] 5 mg tablet 8-03 tablet by [facility] 00:00: oral route 00 every day bumetanide No take 1 [facility] 1 mg tablet 8-03 tablet (1 eal th 00:00: mg) by 00 oral route 2 times per day gabapentin No 1{table Q8H take 1 [facility] 800 mg 8-03 t} tablet by [facility] tablet 00:00: oral route 00 3 times every day tramadol 50 No 1{table Q12H take 1 Dx: [facility] mg tablet 8-03 t} tablet by [id number], e alth 00:00: oral route [id number], 00 every 12 M14.679, hours as E11.621, needed E11.40 amlodipine No take 1 [facility] 5 mg tablet 8-03 tablet (5 eal 00:00: mg) by 00 oral route once daily carvedilol No 1{table Q12H take 1 [facility] 12.5 mg 8-03 t} tablet by [facility] tablet 00:00: oral route 00 2 times every day with food clopidogrel No take 1 [facility] 75 mg 8-03 tablet (75 [facility] tablet 00:00: mg) by 00 oral route once daily isosorbide No take 1 [facility] mononitrate 8-03 tablet (60 ea lth ER 60 mg 00:00: mg) by tablet,exte 00 oral route nded once daily release 24 in the hr morning metolazone No take 1 [facility] 5 mg tablet 8-03 tablet by [facility] 00:00: oral route 00 every day bumetanide No take 1 [facility] 1 mg tablet 8-03 tablet (1 eal th 00:00: mg) by 00 oral route 2 times per day gabapentin No 1{table Q8H take 1 [facility] 800 mg 8-03 t} tablet by [facility] tablet 00:00: oral route 00 3 times every day tramadol 50 No 1{table Q12H take 1 Dx: [facility] mg tablet 8-03 t} tablet by [email or web address], e alth 00:00: oral route [id number], 00 every 12 M14.679, hours as E11.621, needed E11.40 amlodipine No take 1 [facility] 5 mg tablet 8-03 tablet (5 eal th 00:00: mg) by 00 oral route once daily carvedilol No 1{table Q12H take 1 [facility] 12.5 mg 8-03 t} tablet by [facility] tablet 00:00: oral route 00 2 times every day with food clopidogrel No take 1 [facility] 75 mg 8-03 tablet (75 [facility] tablet 00:00: mg) by 00 oral route once daily isosorbide No take 1 [facility] mononitrate 8-03 tablet (60 ea lth ER 60 mg 00:00: mg) by tablet,exte 00 oral route nded once daily release 24 in the hr morning metolazone No take 1 [facility] 5 mg tablet 8-03 tablet by [facility] 00:00: oral route 00 every day bumetanide No take 1 [facility] 1 mg tablet 8-03 tablet (1 eal th 00:00: mg) by 00 oral route 2 times per day gabapentin No 1{table Q8H take 1 [facility] 800 mg 8-03 t} tablet by [facility] tablet 00:00: oral route 00 3 times every day tramadol 50 No 1{table Q12H take 1 Dx: [facility] mg tablet 8-03 t} tablet by [email or web address], e alth 00:00: oral route [id number], 00 every 12 M14.679, hours as E11.621, needed E11.40 amlodipine No take 1 [facility] 5 mg tablet 8-03 tablet (5 eal th 00:00: mg) by 00 oral route once daily carvedilol No 1{table Q12H take 1 [facility] 12.5 mg 8-03 t} tablet by [facility] tablet 00:00: oral route 00 2 times every day with food clopidogrel No take 1 [facility] 75 mg 8-03 tablet (75 [facility] tablet 00:00: mg) by 00 oral route once daily isosorbide No take 1 [facility] mononitrate 8-03 tablet (60 ea lth ER 60 mg 00:00: mg) by tablet,exte 00 oral route nded once daily release 24 in the hr morning metolazone No take 1 [facility] 5 mg tablet 8-03 tablet by [facility] th 00:00: oral route 00 every day bumetanide No take 1 [facility] 1 mg tablet 8-03 tablet (1 eal th 00:00: mg) by 00 oral route 2 times per day gabapentin No 1{table Q8H take 1 [facility] 800 mg 8-03 t} tablet by [facility] tablet 00:00: oral route 00 3 times every day tramadol 50 No 1{table Q12H take 1 Dx: [facility] mg tablet 8-03 t} tablet by [id number], e alth 00:00: oral route [id number], 00 every 12 M14.679, hours as E11.621, needed E11.40 tramadol 50 No 1{table Q12H take 1 Dx: [facility] mg tablet 8-03 t} tablet by [id number], e alth 00:00: oral route [id number], 00 every 12 M14.679, hours as E11.621, needed E11.40 tramadol 50 No 1{table Q12H take 1 Dx: [facility] mg tablet 8-03 t} tablet by [id number], e alth 00:00: oral route [id number], 00 every 12 M14.679, hours as E11.621, needed E11.40 tramadol 50 No 1{table Q12H take 1 Dx: [facility] mg tablet 8-03 t} tablet by [id number], e alth 00:00: oral route [id number], 00 every 12 M14.679, hours as E11.621, needed E11.40 tramadol 50 No 1{table Q12H take 1 Dx: [facility] mg tablet 8-03 t} tablet by [email or web address], e alth 00:00: oral route [id number], 00 every 12 M14.679, hours as E11.621, needed E11.40 tramadol 50 No 1{table Q12H take 1 Dx: [facility] mg tablet 10-29 t} tablet by [email or web address], e alth 00:00: oral route [id number], 00 every 12 M14.679, hours as E11.621, needed E11.40 tramadol 50 2020-2021- No 1{table Q12H take 1 Dx: [facility] mg tablet 10-2915 t} tablet by [email or web address], ealt 00:00: 00:00 oral route [id number], 00 :00 every 12 M14.679, hours as E11.621, needed E11.40 tramadol 50 2021- No 1{table Q12H take 1 Dx: [facility] mg tablet -15 t} tablet by [email or web address], ealt 00:00: 00:00 oral route [id number], 00 :00 every 12 M14.679, hours as E11.621, needed E11.40 tramadol 50 2021- No 1{table Q12H take 1 Dx: [facility] mg tablet 10-2915 t} tablet by [email or web address], ealt 00:00: 00:00 oral route [id number], 00 :00 every 12 M14.679, hours as E11.621, needed E11.40 tramadol 50 2021- No 1{table Q12H take 1 Dx: [facility] mg tablet 10-2915 t} tablet by [email or web address], ealt 00:00: 00:00 oral route [id number], 00 :00 every 12 M14.679, hours as E11.621, needed E11.40 tramadol 50 2021- No 1{table Q12H take 1 Dx: [facility] mg tablet 10-2915 t} tablet by [email or web address], ealt 00:00: 00:00 oral route [email or web address], 00 :00 every 12 M14.679, hours as E11.621, needed E11.40 tramadol 50 2021-0 2022- No 1{table Q12H take 1 Dx: [facility] mg tablet 10-2915 t} tablet by [email or web address], ealth 00:00: 00:00 oral route [id number], 00 :00 every 12 M14.679, hours as E11.621, needed E11.40 amlodipine 2020- No take 1 [facility] 5 mg tablet 10-29 tablet (5 ea lth 00:00: 00:00 mg) by 00 :00 oral route once daily carvedilol 2020- No 1{table Q12H take 1 [facility] 12.5 mg 10-29 t} tablet by [facility] tablet 00:00: 00:00 oral route 00 :00 2 times every day with food clopidogrel 2020- No take 1 [facility] 75 mg 10-29 tablet (75 [facility] tablet 00:00: 00:00 mg) by 00 :00 oral route once daily isosorbide 2020- No take 1 [facility] mononitrate 10-29 tablet (60 e alth ER 60 mg 00:00: 00:00 mg) by tablet,exte 00 :00 oral route nded once daily release 24 in the hr morning metolazone 2020- No take 1 [facility] 5 mg tablet 10-29 tablet by ea lth 00:00: 00:00 oral route 00 :00 every day bumetanide 2020- No take 1 [facility] 1 mg tablet 10-29 tablet (1 ea lth 00:00: 00:00 mg) by 00 :00 oral route 2 times per day gabapentin 2020-2020- No 1{table Q8H take 1 [facility] 800 mg 10-29 t} tablet by [facility] tablet 00:00: 00:00 oral route 00 :00 3 times every day amlodipine 2020-2020- No take 1 [facility] 5 mg tablet 10-29 tablet (5 ea lth 00:00: 00:00 mg) by 00 :00 oral route once daily carvedilol 2020- No 1{table Q12H take 1 [facility] 12.5 mg 10-29 t} tablet by [facility] tablet 00:00: 00:00 oral route 00 :00 2 times every day with food clopidogrel 2020-0 2020- No take 1 [facility] 75 mg 10-29 tablet (75 [facility] tablet 00:00: 00:00 mg) by 00 :00 oral route once daily isosorbide 2020-0 2020- No take 1 [facility] mononitrate 10-29 tablet (60 e alth ER 60 mg 00:00: 00:00 mg) by tablet,exte 00 :00 oral route nded once daily release 24 in the hr morning metolazone 2020-2020- No take 1 [facility] 5 mg tablet 10-29 tablet by ea lth 00:00: 00:00 oral route 00 :00 every day bumetanide 2020-0 2020- No take 1 [facility] 1 mg tablet 10-29 tablet (1 ea lth 00:00: 00:00 mg) by 00 :00 oral route 2 times per day gabapentin 2020-0 2020- No 1{table Q8H take 1 A ccessH 800 mg 10-29 t} tablet by ealth tablet 00:00: 00:00 oral route 00 :00 3 times every day amlodipine 2020-0 2020- No take 1 [facility] 5 mg tablet 10-29 tablet (5 ea lth 00:00: 00:00 mg) by 00 :00 oral route once daily carvedilol 2020-2020- No 1{table Q12H take 1 A ccessH 12.5 mg 10-29 t} tablet by ealth tablet 00:00: 00:00 oral route 00 :00 2 times every day with food clopidogrel 2020-0 2020- No take 1 [facility] 75 mg 10-29 tablet (75 ealth tablet 00:00: 00:00 mg) by 00 :00 oral route once daily isosorbide 2020-0 2020- No take 1 [facility] mononitrate 10-29 tablet (60 e al[facility] ER 60 mg 00:00: 00:00 mg) by tablet,exte 00 :00 oral route nded once daily release 24 in the hr morning metolazone 2020- No take 1 [facility] 5 mg tablet 10-29 tablet by ea lth 00:00: 00:00 oral route 00 :00 every day bumetanide 2020- No take 1 [facility] 1 mg tablet 10-29 tablet (1 ea l[facility] 00:00: 00:00 mg) by 00 :00 oral route 2 times per day gabapentin 2020-2020- No 1{table Q8H take 1 [facility] 800 mg 10-29 t} tablet by [facility] tablet 00:00: 00:00 oral route 00 :00 3 times every day amlodipine 2020- No take 1 [facility] 5 mg tablet 10-29 tablet (5 ea l[facility] 00:00: 00:00 mg) by 00 :00 oral route once daily carvedilol 2020- No 1{table Q12H take 1 [facility] 12.5 mg 10-29 t} tablet by [facility] tablet 00:00: 00:00 oral route 00 :00 2 times every day with food clopidogrel 2020- No take 1 [facility] 75 mg 10-29 tablet (75 [facility] tablet 00:00: 00:00 mg) by 00 :00 oral route once daily isosorbide 2020- No take 1 [facility] mononitrate 10-29 tablet (60 e al[facility] ER 60 mg 00:00: 00:00 mg) by tablet,exte 00 :00 oral route nded once daily release 24 in the hr morning metolazone 2020- No take 1 [facility] 5 mg tablet 10-29 tablet by ea lth 00:00: 00:00 oral route 00 :00 every day bumetanide 2020- No take 1 [facility] 1 mg tablet 10-29 tablet (1 ea [facility] 00:00: 00:00 mg) by 00 :00 oral route 2 times per day gabapentin 2020-2020- No 1{table Q8H take 1 [facility] 800 mg 10-29 t} tablet by [facility] tablet 00:00: 00:00 oral route 00 :00 3 times every day amlodipine 2020-0 2020- No take 1 [facility] 5 mg tablet 10-29 tablet (5 e[facility] 00:00: 00:00 mg) by 00 :00 oral route once daily carvedilol 2020-2020- No 1{table Q12H take 1 [facility] 12.5 mg 10-29 t} tablet by [facility] tablet 00:00: 00:00 oral route 00 :00 2 times every day with food clopidogrel 2020-2020- No take 1 [facility] 75 mg 10-29 tablet (75 [facility] tablet 00:00: 00:00 mg) by 00 :00 oral route once daily isosorbide 2020-0 2020- No take 1 [facility] mononitrate 10-29 tablet (60 e al[facility] ER 60 mg 00:00: 00:00 mg) by tablet,exte 00 :00 oral route nded once daily release 24 in the hr morning metolazone 2020-0 2020- No take 1 [facility] 5 mg tablet 10-29 tablet by ea l[facility] 00:00: 00:00 oral route 00 :00 every day bumetanide 2020-0 2020- No take 1 [facility] 1 mg tablet 10-29 tablet (1 e[facility] 00:00: 00:00 mg) by 00 :00 oral route 2 times per day gabapentin 2020-0 2020- No 1{table Q8H take 1 [facility] 800 mg 10-29 t} tablet by [facility] tablet 00:00: 00:00 oral route 00 :00 3 times every day amlodipine 2020-0 2020- No take 1 [facility] 5 mg tablet 10-29 tablet (5 e[facility] 00:00: 00:00 mg) by 00 :00 oral route once daily carvedilol 2020-0 2020- No 1{table Q12H take 1 [facility] 12.5 mg 10-29 t} tablet by [facility] tablet 00:00: 00:00 oral route 00 :00 2 times every day with food clopidogrel 2020-2020- No take 1 [facility] 75 mg 10-29 tablet (75 [facility] tablet 00:00: 00:00 mg) by 00 :00 oral route once daily isosorbide 2020-2020- No take 1 [facility] mononitrate 10-29 tablet (60 e al[facility] ER 60 mg 00:00: 00:00 mg) by tablet,exte 00 :00 oral route nded once daily release 24 in the hr morning metolazone 2020-2020- No take 1 [facility] 5 mg tablet 10-29 tablet by ea l[facility] 00:00: 00:00 oral route 00 :00 every day bumetanide 2020-2020- No take 1 [facility] 1 mg tablet 10-29 tablet (1 e[facility] 00:00: 00:00 mg) by 00 :00 oral route 2 times per day gabapentin 2020-2020- No 1{table Q8H take 1 [facility] 800 mg 10-29 t} tablet by [facility] tablet 00:00: 00:00 oral route 00 :00 3 times every day amlodipine 2020-2020- No take 1 [facility] 5 mg tablet 10-29 tablet (5 e[facility] 00:00: 00:00 mg) by 00 :00 oral route once daily carvedilol 2020-2020- No 1{table Q12H take 1 [facility] 12.5 mg 10-29 t} tablet by [facility] tablet 00:00: 00:00 oral route 00 :00 2 times every day with food clopidogrel 2020-2020- No take 1 [facility] 75 mg 10-29 tablet (75 [facility] tablet 00:00: 00:00 mg) by 00 :00 oral route once daily isosorbide 2020-2020- No take 1 [facility] mononitrate 10-29 tablet (60 e al[facility] ER 60 mg 00:00: 00:00 mg) by tablet,exte 00 :00 oral route nded once daily release 24 in the hr morning metolazone 2020- No take 1 [facility] 5 mg tablet 10-29 tablet by ea l[facility] 00:00: 00:00 oral route 00 :00 every day bumetanide 2020- No take 1 [facility] 1 mg tablet 10-29 tablet (1 e[facility] 00:00: 00:00 mg) by 00 :00 oral route 2 times per day gabapentin 2020- No 1{table Q8H take 1 [facility] 800 mg 10-29 t} tablet by [facility] tablet 00:00: 00:00 oral route 00 :00 3 times every day amlodipine 2020- No take 1 [facility] 5 mg tablet 10-29 tablet (5 e[facility] 00:00: 00:00 mg) by 00 :00 oral route once daily carvedilol 2020- No 1{table Q12H take 1 [facility] 12.5 mg 10-29 t} tablet by [facility] tablet 00:00: 00:00 oral route 00 :00 2 times every day with food clopidogrel 2020- No take 1 [facility] 75 mg 10-29 tablet (75 [facility] tablet 00:00: 00:00 mg) by 00 :00 oral route once daily isosorbide 2020- No take 1 [facility] mononitrate 10-29 tablet (60 e al[facility] ER 60 mg 00:00: 00:00 mg) by tablet,exte 00 :00 oral route nded once daily release 24 in the hr morning metolazone 2020- No take 1 [facility] 5 mg tablet 10-29 tablet by ea l[facility] 00:00: 00:00 oral route 00 :00 every day bumetanide 2020- No take 1 [facility] 1 mg tablet 10-29 tablet (1 ea [facility] 00:00: 00:00 mg) by 00 :00 oral route 2 times per day gabapentin 2020-2020- No 1{table Q8H take 1 [facility] 800 mg 10-29 t} tablet by [facility] tablet 00:00: 00:00 oral route 00 :00 3 times every day amlodipine 2020-0 2020- No take 1 [facility] 5 mg tablet 10-29 tablet (5 e[facility] 00:00: 00:00 mg) by 00 :00 oral route once daily carvedilol 2020-0 2020- No 1{table Q12H take 1 [facility] 12.5 mg 10-29 t} tablet by [facility] tablet 00:00: 00:00 oral route 00 :00 2 times every day with food clopidogrel 2020-0 2020- No take 1 [facility] 75 mg 10-29 tablet (75 [facility] tablet 00:00: 00:00 mg) by 00 :00 oral route once daily isosorbide 2020-0 2020- No take 1 [facility] mononitrate 10-29 tablet (60 e al[facility] ER 60 mg 00:00: 00:00 mg) by tablet,exte 00 :00 oral route nded once daily release 24 in the hr morning metolazone 2020-0 2020- No take 1 [facility] 5 mg tablet 10-29 tablet by ea [facility] 00:00: 00:00 oral route 00 :00 every day bumetanide 2020-0 2020- No take 1 [facility] 1 mg tablet 10-29 tablet (1 ea [facility] 00:00: 00:00 mg) by 00 :00 oral route 2 times per day gabapentin 2020-0 2020- No 1{table Q8H take 1 [facility] 800 mg 10-29 t} tablet by [facility] tablet 00:00: 00:00 oral route 00 :00 3 times every day carvedilol 2020-0 2020- No 1{table Q12H take 1 [facility] 12.5 mg 10-29 t} tablet by [facility] tablet 00:00: 00:00 oral route 00 :00 2 times every day with food clopidogrel 2020-0 2020- No take 1 [facility] 75 mg 10-29 tablet (75 [facility] tablet 00:00: 00:00 mg) by 00 :00 oral route once daily isosorbide 2020- No take 1 [facility] mononitrate 10-29 tablet (60 e al[facility] ER 60 mg 00:00: 00:00 mg) by tablet,exte 00 :00 oral route nded once daily release 24 in the hr morning metolazone 2020- No take 1 [facility] 5 mg tablet 10-29 tablet by ea [facility] 00:00: 00:00 oral route 00 :00 every day bumetanide 2020- No take 1 [facility] 1 mg tablet 10-29 tablet (1 e[facility] 00:00: 00:00 mg) by 00 :00 oral route 2 times per day gabapentin 2020-2020- No 1{table Q8H take 1 [facility] 800 mg 10-29 t} tablet by [facility] tablet 00:00: 00:00 oral route 00 :00 3 times every day amlodipine 2020-2020- No take 1 [facility] 5 mg tablet 10-29 tablet (5 e[facility] 00:00: 00:00 mg) by 00 :00 oral route once daily amlodipine 2020- No take 1 [facility] 5 mg tablet 10-29 tablet (5 ea [facility] 00:00: 00:00 mg) by 00 :00 oral route once daily carvedilol 2020- No 1{table Q12H take 1 [facility] 12.5 mg 10-29 t} tablet by [facility] tablet 00:00: 00:00 oral route 00 :00 2 times every day with food clopidogrel 2020- No take 1 [facility] 75 mg 10-29 tablet (75 [facility] tablet 00:00: 00:00 mg) by 00 :00 oral route once daily isosorbide 2020-2020- No take 1 [facility] mononitrate 10-29 tablet (60 e al[facility] ER 60 mg 00:00: 00:00 mg) by tablet,exte 00 :00 oral route nded once daily release 24 in the hr morning metolazone 2020- No take 1 [facility] 5 mg tablet 10-29 tablet by ea [facility] 00:00: 00:00 oral route 00 :00 every day bumetanide 2020-0 2020- No take 1 [facility] 1 mg tablet 10-29 tablet (1 ea [facility] 00:00: 00:00 mg) by 00 :00 oral route 2 times per day gabapentin 2020-0 2020- No 1{table Q8H take 1 [facility] 800 mg 10-29 t} tablet by [facility] tablet 00:00: 00:00 oral route 00 :00 3 times every day amlodipine 2020-0 2020- No take 1 [facility] 5 mg tablet 10-29 tablet (5 e[facility] 00:00: 00:00 mg) by 00 :00 oral route once daily carvedilol 2020-2020- No 1{table Q12H take 1 [facility] 12.5 mg 10-29 t} tablet by [facility] tablet 00:00: 00:00 oral route 00 :00 2 times every day with food clopidogrel 2020-0 2020- No take 1 [facility] 75 mg 10-29 tablet (75 [facility] tablet 00:00: 00:00 mg) by 00 :00 oral route once daily isosorbide 2020-2020- No take 1 [facility] mononitrate 10-29 tablet (60 e al[facility] ER 60 mg 00:00: 00:00 mg) by tablet,exte 00 :00 oral route nded once daily release 24 in the hr morning metolazone 2020-2020- No take 1 [facility] 5 mg tablet 10-29 tablet by ea l[facility] 00:00: 00:00 oral route 00 :00 every day bumetanide 2020-0 2020- No take 1 [facility] 1 mg tablet 10-29 tablet (1 e[facility] 00:00: 00:00 mg) by 00 :00 oral route 2 times per day gabapentin 2020-0 2020- No 1{table Q8H take 1 [facility] 800 mg 10-29 t} tablet by [facility] tablet 00:00: 00:00 oral route 00 :00 3 times every day Humalog 2020- No inject [facility] KwikPen 8-06 04-14 5-10 Units ealth (U-100) 00:00: 00:00 by Insulin 100 00 :00 Subcutaneo unit/mL us route 3 subcutaneou times per s day on a medium sliding scale three times a day before meals Humalog 2020- No inject [facility] KwikPen 8-14 5-10 Units ealth (U-100) 00:00: 00:00 by Insulin 100 00 :00 Subcutaneo unit/mL us route 3 subcutaneou times per s day on a medium sliding scale three times a day before meals Humalog 2020- No inject [facility] KwikPen 8-14 5-10 Units ealth (U-100) 00:00: 00:00 by Insulin 100 00 :00 Subcutaneo unit/mL us route 3 subcutaneou times per s day on a medium sliding scale three times a day before meals Humalog 2020- No inject [facility] KwikPen 8-14 5-10 Units ealth (U-100) 00:00: 00:00 by Insulin 100 00 :00 Subcutaneo unit/mL us route 3 subcutaneou times per s day on a medium sliding scale three times a day before meals Humalog 2020- No inject [facility] KwikPen 8-14 5-10 Units ealth (U-100) 00:00: 00:00 by Insulin 100 00 :00 Subcutaneo unit/mL us route 3 subcutaneou times per s day on a medium sliding scale three times a day before meals Humalog 2020- No inject [facility] KwikPen 8-06 04-14 5-10 Units ealth (U-100) 00:00: 00:00 by Insulin 100 00 :00 Subcutaneo unit/mL us route 3 subcutaneou times per s day on a medium sliding scale three times a day before meals Humalog 2020- No inject [facility] KwikPen 8-14 5-10 Units ealth (U-100) 00:00: 00:00 by Insulin 100 00 :00 Subcutaneo unit/mL us route 3 subcutaneou times per s day on a medium sliding scale three times a day before meals Humalog 2020- No inject [facility] KwikPen 10-29 5-10 Units ealth (U-100) 00:00: 00:00 by Insulin 100 00 :00 Subcutaneo unit/mL us route 3 subcutaneou times per s day on a medium sliding scale three times a day before meals Humalog 2020- No inject [facility] KwikPen 10-29 5-10 Units ealth (U-100) 00:00: 00:00 by Insulin 100 00 :00 Subcutaneo unit/mL us route 3 subcutaneou times per s day on a medium sliding scale three times a day before meals Humalog 2020- No inject [facility] KwikPen 10-29 5-10 Units ealth (U-100) 00:00: 00:00 by Insulin 100 00 :00 Subcutaneo unit/mL us route 3 subcutaneou times per s day on a medium sliding scale three times a day before meals Humalog 2020- No inject [facility] KwikPen 10-29 5-10 Units ealth (U-100) 00:00: 00:00 by Insulin 100 00 :00 Subcutaneo unit/mL us route 3 subcutaneou times per s day on a medium sliding scale three times a day before meals Humalog 2020- No inject [facility] KwikPen 10-29 5-10 Units ealth (U-100) 00:00: 00:00 by Insulin 100 00 :00 Subcutaneo unit/mL us route 3 subcutaneou times per s day on a medium sliding scale three times a day before meals Humalog 2020- No inject [facility] KwikPen 10-29 5-10 Units ealth (U-100) 00:00: 00:00 by Insulin 100 00 :00 Subcutaneo unit/mL us route 3 subcutaneou times per s day on a medium sliding scale three times a day before meals Humalog 2020- No inject [facility] KwikPen 10-2914 5-10 Units ealth (U-100) 00:00: 00:00 by Insulin 100 00 :00 Subcutaneo unit/mL us route 3 subcutaneou times per s day on a medium sliding scale three times a day before meals Humalog 2020- No inject [facility] KwikPen 8-14 5-10 Units ealth (U-100) 00:00: 00:00 by Insulin 100 00 :00 Subcutaneo unit/mL us route 3 subcutaneou times per s day on a medium sliding scale three times a day before meals Humalog 2020- No inject [facility] KwikPen 812-10 5-10 Units ealth (U-100) 00:00: 00:00 by Insulin 100 00 :00 Subcutaneo unit/mL us route 3 subcutaneou times per s day on a medium sliding scale three times a day before meals Humalog 2020- No inject [facility] KwikPen 10-29 5-10 Units ealth (U-100) 00:00: 00:00 by Insulin 100 00 :00 Subcutaneo unit/mL us route 3 subcutaneou times per s day on a medium sliding scale three times a day before meals Humalog 2020- No inject [facility] KwikPen 10-29 5-10 Units ealth (U-100) 00:00: 00:00 by Insulin 100 00 :00 Subcutaneo unit/mL us route 3 subcutaneou times per s day on a medium sliding scale three times a day before meals Humalog 2020- No inject [facility] KwikPen 10-2914 5-10 Units ealth (U-100) 00:00: 00:00 by Insulin 100 00 :00 Subcutaneo unit/mL us route 3 subcutaneou times per s day on a medium sliding scale three times a day before meals Humalog 2020- No inject [facility] KwikPen 814 5-10 Units ealth (U-100) 00:00: 00:00 by Insulin 100 00 :00 Subcutaneo unit/mL us route 3 subcutaneou times per s day on a medium sliding scale three times a day before meals lisinopril 2021-0 2021- No 1{table Q1D take 1 [facility] 20 mg 8-03 09-05 t} tablet by ealth tablet 00:00: 00:00 oral route 00 :00 every day lisinopril 2021-0 2021- No 1{table Q1D take 1 [facility] 20 mg 8-03 09-05 t} tablet by ealth tablet 00:00: 00:00 oral route 00 :00 every day lisinopril 2021-0 2021- No 1{table Q1D take 1 [facility] 20 mg 8-03 09-05 t} tablet by ealth tablet 00:00: 00:00 oral route 00 :00 every day lisinopril 2021-0 2021- No 1{table Q1D take 1 [facility] 20 mg 8-03 09-05 t} tablet by ealth tablet 00:00: 00:00 oral route 00 :00 every day lisinopril 2021-0 2021- No 1{table Q1D take 1 [facility] 20 mg 8-03 09-05 t} tablet by ealth tablet 00:00: 00:00 oral route 00 :00 every day lisinopril 2021-0 2021- No 1{table Q1D take 1 [facility] 20 mg 8-03 09-05 t} tablet by ealth tablet 00:00: 00:00 oral route 00 :00 every day lisinopril 2021-0 2021- No 1{table Q1D take 1 [facility] 20 mg 8-03 09-05 t} tablet by ealth tablet 00:00: 00:00 oral route 00 :00 every day lisinopril 2021-0 2021- No 1{table Q1D take 1 [facility] 20 mg 8-03 09-05 t} tablet by ealth tablet 00:00: 00:00 oral route 00 :00 every day lisinopril 2021-0 2021- No 1{table Q1D take 1 [facility] 20 mg 8-03 09-05 t} tablet by ealth tablet 00:00: 00:00 oral route 00 :00 every day lisinopril 2021-0 2021- No 1{table Q1D take 1 [facility] 20 mg 8-03 09-05 t} tablet by ealth tablet 00:00: 00:00 oral route 00 :00 every day lisinopril 2021-0 2021- No 1{table Q1D take 1 [facility] 20 mg 8-03 09-05 t} tablet by ealth tablet 00:00: 00:00 oral route 00 :00 every day lisinopril 2021-0 2021- No 1{table Q1D take 1 [facility] 20 mg 8-03 09-05 t} tablet by ealth tablet 00:00: 00:00 oral route 00 :00 every day lisinopril 2021-0 2021- No 1{table Q1D take 1 [facility] 20 mg 8-03 09-05 t} tablet by ealth tablet 00:00: 00:00 oral route 00 :00 every day lisinopril 2021-0 2021- No 1{table Q1D take 1 [facility] 20 mg 8-03 09-05 t} tablet by ealth tablet 00:00: 00:00 oral route 00 :00 every day lisinopril 2021-0 2021- No 1{table Q1D take 1 [facility] 20 mg 8-03 09-05 t} tablet by ealth tablet 00:00: 00:00 oral route 00 :00 every day lisinopril 2021-0 2021- No 1{table Q1D take 1 [facility] 20 mg 8-03 09-05 t} tablet by ealth tablet 00:00: 00:00 oral route 00 :00 every day lisinopril 2021-0 2021- No 1{table Q1D take 1 [facility] 20 mg 8-03 09-05 t} tablet by ealth tablet 00:00: 00:00 oral route 00 :00 every day lisinopril 2021-0 2021- No 1{table Q1D take 1 [facility] 20 mg 8-03 09-05 t} tablet by ealth tablet 00:00: 00:00 oral route 00 :00 every day lisinopril 2021-0 2021- No 1{table Q1D take 1 [facility] 20 mg 10-29 t} tablet by ealth tablet 00:00: 00:00 oral route 00 :00 every day lisinopril 2020-0 2021- No 1{table Q1D take 1 [facility] 20 mg 10-29 t} tablet by ealth tablet 00:00: 00:00 oral route 00 :00 every day atorvastati 1-0 2021- No take 1 [facility] n 80 mg 10-29 tablet by ealth tablet 00:00: 00:00 Oral route 00 :00 1 time per day atorvastati 2021-0 2021- No take 1 [facility] n 80 mg 10-29 tablet by ealth tablet 00:00: 00:00 Oral route 00 :00 1 time per day atorvastati 2021-0 2021- No take 1 [facility] n 80 mg 10-29 tablet by ealth tablet 00:00: 00:00 Oral route 00 :00 1 time per day atorvastati 1-0 2021- No take 1 [facility] n 80 mg 10-29 tablet by ealth tablet 00:00: 00:00 Oral route 00 :00 1 time per day atorvastati 2021-0 2021- No take 1 [facility] n 80 mg 10-29 tablet by ealth tablet 00:00: 00:00 Oral route 00 :00 1 time per day atorvastati 2021-0 2021- No take 1 [facility] n 80 mg 10-29 tablet by ealth tablet 00:00: 00:00 Oral route 00 :00 1 time per day atorvastati 2021-0 2021- No take 1 [facility] n 80 mg 10-29 tablet by ealth tablet 00:00: 00:00 Oral route 00 :00 1 time per day atorvastati 2021-0 2021- No take 1 [facility] n 80 mg 10-29 tablet by ealth tablet 00:00: 00:00 Oral route 00 :00 1 time per day atorvastati 2021-0 2021- No take 1 [facility] n 80 mg 10-29 tablet by ealth tablet 00:00: 00:00 Oral route 00 :00 1 time per day atorvastati 2021-0 2021- No take 1 [facility] n 80 mg 8- 08-07 tablet by ealth tablet 00:00: 00:00 Oral route 00 :00 1 time per day atorvastati 2021-0 2021- No take 1 [facility] n 80 mg 8-06 03- tablet by ealth tablet 00:00: 00:00 Oral route 00 :00 1 time per day atorvastati 202-0 2021- No take 1 [facility] n 80 mg 8-06 03- tablet by ealth tablet 00:00: 00:00 Oral route 00 :00 1 time per day atorvastati 2020-0 2021- No take 1 [facility] n 80 mg 8-06 03- tablet by ealth tablet 00:00: 00:00 Oral route 00 :00 1 time per day atorvastati 2021-0 2021- No take 1 [facility] n 80 mg 8-06 03- tablet by ealth tablet 00:00: 00:00 Oral route 00 :00 1 time per day atorvastati 2021-0 2021- No take 1 [facility] n 80 mg 8- 08- tablet by ealth tablet 00:00: 00:00 Oral route 00 :00 1 time per day atorvastati 2021-0 2021- No take 1 [facility] n 80 mg 8-06 03- tablet by ealth tablet 00:00: 00:00 Oral route 00 :00 1 time per day atorvastati 2021-0 2021- No take 1 [facility] n 80 mg 8-06 03- tablet by ealth tablet 00:00: 00:00 Oral route 00 :00 1 time per day atorvastati 2021-0 2021- No take 1 [facility] n 80 mg 8- 08-07 tablet by ealth tablet 00:00: 00:00 Oral route 00 :00 1 time per day atorvastati 2021-0 2021- No take 1 [facility] n 80 mg 8- 08-07 tablet by ealth tablet 00:00: 00:00 Oral route 00 :00 1 time per day atorvastati 202-0 2021- No take 1 [facility] n 80 mg 8- 08-07 tablet by ealth tablet 00:00: 00:00 Oral route 00 :00 1 time per day carvedilol 2020-2020- No take 1 [facility] 25 mg 8- 08-03 tablet (25 e[facility] tablet 00:00: 00:00 mg) by 00 :00 oral route 2 times per day with food carvedilol 2020-2020- No take 1 [facility] 25 mg 8- 08-03 tablet (25 e[facility] tablet 00:00: 00:00 mg) by 00 :00 oral route 2 times per day with food carvedilol 2020-2020- No take 1 [facility] 25 mg 8- 08- tablet (25 e[facility] tablet 00:00: 00:00 mg) by 00 :00 oral route 2 times per day with food carvedilol 2020-2020- No take 1 [facility] 25 mg 8-06 03- tablet (25 e[facility] tablet 00:00: 00:00 mg) by 00 :00 oral route 2 times per day with food carvedilol 2020-2020- No take 1 [facility] 25 mg 8-06 03- tablet (25 e[facility] tablet 00:00: 00:00 mg) by 00 :00 oral route 2 times per day with food carvedilol 2020- No take 1 [facility] 25 mg 8- 08-03 tablet (25 e[facility] tablet 00:00: 00:00 mg) by 00 :00 oral route 2 times per day with food carvedilol 2020-2020- No take 1 [facility] 25 mg 8-03 08-03 tablet (25 e[facility] tablet 00:00: 00:00 mg) by 00 :00 oral route 2 times per day with food carvedilol 2020-2020- No take 1 [facility] 25 mg 8-03 08-03 tablet (25 e[facility] tablet 00:00: 00:00 mg) by 00 :00 oral route 2 times per day with food carvedilol 2020-2020- No take 1 [facility] 25 mg 8-03 08-03 tablet (25 e[facility] tablet 00:00: 00:00 mg) by 00 :00 oral route 2 times per day with food carvedilol 0 2020- No take 1 [facility] 25 mg 8-03 08-03 tablet (25 e[facility] tablet 00:00: 00:00 mg) by 00 :00 oral route 2 times per day with food carvedilol 2020- No take 1 [facility] 25 mg 8- 08-03 tablet (25 e[facility] tablet 00:00: 00:00 mg) by 00 :00 oral route 2 times per day with food carvedilol 2020- No take 1 [facility] 25 mg 8- 08-03 tablet (25 e[facility] tablet 00:00: 00:00 mg) by 00 :00 oral route 2 times per day with food carvedilol 2020- No take 1 [facility] 25 mg 8- 08-03 tablet (25 e[facility] tablet 00:00: 00:00 mg) by 00 :00 oral route 2 times per day with food carvedilol 0 2020- No take 1 [facility] 25 mg 8- 08-03 tablet (25 e[facility] tablet 00:00: 00:00 mg) by 00 :00 oral route 2 times per day with food carvedilol 2020-0 2020- No take 1 [facility] 25 mg 8- 08-03 tablet (25 e[facility] tablet 00:00: 00:00 mg) by 00 :00 oral route 2 times per day with food carvedilol 2020- No take 1 [facility] 25 mg 8-03 08-03 tablet (25 e[facility] tablet 00:00: 00:00 mg) by 00 :00 oral route 2 times per day with food carvedilol 2020- No take 1 [facility] 25 mg 8-03 08-03 tablet (25 [facility] tablet 00:00: 00:00 mg) by 00 :00 oral route 2 times per day with food carvedilol 2020- No take 1 [facility] 25 mg 8-03 08-03 tablet (25 e[facility] tablet 00:00: 00:00 mg) by 00 :00 oral route 2 times per day with food carvedilol 2020- No take 1 [facility] 25 mg 8- 08-03 tablet (25 [facility] tablet 00:00: 00:00 mg) by 00 :00 oral route 2 times per day with food carvedilol 2020- No take 1 [facility] 25 mg 8-06 03- tablet (25 [facility] tablet 00:00: 00:00 mg) by 00 :00 oral route 2 times per day with food carvedilol 2020-2020- No take 1 [facility] 25 mg 8-06 03- tablet (25 [facility] tablet 00:00: 00:00 mg) by 00 :00 oral route 2 times per day with food carvedilol 2020-2020- No take 1 [facility] 25 mg 8-06 03- tablet (25 [facility] tablet 00:00: 00:00 mg) by 00 :00 oral route 2 times per day with food carvedilol 2020- No take 1 [facility] 25 mg 8-06 03- tablet (25 [facility] tablet 00:00: 00:00 mg) by 00 :00 oral route 2 times per day with food carvedilol 2020-2020- No take 1 [facility] 25 mg 8-06 03- tablet (25 [facility] tablet 00:00: 00:00 mg) by 00 :00 oral route 2 times per day with food carvedilol 2020-2020- No take 1 [facility] 25 mg 8-06 03-03 tablet (25 [facility] tablet 00:00: 00:00 mg) by 00 :00 oral route 2 times per day with food carvedilol 2020-2020- No take 1 [facility] 25 mg 8-06 03-03 tablet (25 [facility] tablet 00:00: 00:00 mg) by 00 :00 oral route 2 times per day with food carvedilol 2020- No take 1 [facility] 25 mg 8- 08-03 tablet (25 e[facility] tablet 00:00: 00:00 mg) by 00 :00 oral route 2 times per day with food carvedilol 2020- No take 1 [facility] 25 mg 8- 08-03 tablet (25 [facility] tablet 00:00: 00:00 mg) by 00 :00 oral route 2 times per day with food carvedilol 2020- No take 1 [facility] 25 mg 8-06 03- tablet (25 [facility] tablet 00:00: 00:00 mg) by 00 :00 oral route 2 times per day with food carvedilol 2020- No take 1 [facility] 25 mg 8-06 03- tablet (25 [facility] tablet 00:00: 00:00 mg) by 00 :00 oral route 2 times per day with food carvedilol 2020- No take 1 [facility] 25 mg 8-06 03- tablet (25 [facility] tablet 00:00: 00:00 mg) by 00 :00 oral route 2 times per day with food carvedilol 2020- No take 1 [facility] 25 mg 8-06 03- tablet (25 [facility] tablet 00:00: 00:00 mg) by 00 :00 oral route 2 times per day with food carvedilol 2020- No take 1 [facility] 25 mg 8-06 03- tablet (25 [facility] tablet 00:00: 00:00 mg) by 00 :00 oral route 2 times per day with food carvedilol 2020- No take 1 [facility] 25 mg 8-06 03- tablet (25 [facility] tablet 00:00: 00:00 mg) by 00 :00 oral route 2 times per day with food carvedilol 2020- No take 1 [facility] 25 mg 8-06 03-03 tablet (25 [facility] tablet 00:00: 00:00 mg) by 00 :00 oral route 2 times per day with food carvedilol 2020- No take 1 [facility] 25 mg 8-06 03-03 tablet (25 [facility] tablet 00:00: 00:00 mg) by 00 :00 oral route 2 times per day with food carvedilol 2020- No take 1 [facility] 25 mg 8- 08-03 tablet (25 [facility] tablet 00:00: 00:00 mg) by 00 :00 oral route 2 times per day with food carvedilol 2020- No take 1 [facility] 25 mg 10-29- tablet (25 [facility] tablet 00:00: 00:00 mg) by 00 :00 oral route 2 times per day with food carvedilol 2020- No take 1 [facility] 25 mg 10-29 tablet (25 [facility] tablet 00:00: 00:00 mg) by 00 :00 oral route 2 times per day with food carvedilol 2020- No take 1 [facility] 25 mg 10-29 tablet (25 [facility] tablet 00:00: 00:00 mg) by 00 :00 oral route 2 times per day with food atorvastati Yes 80mg QD Take [address] [facility] (LIPITOR) 7-04 by mouth [facility] 80 MG 13:32: every Medical tablet 10 evening. Center isosorbide Yes Chronic 60mg QD Take [address] [facility] mononitrate 7-04 Stable by mouth Siddhartha kes (IMDUR) 60 13:32: Angina daily. Med ical MG 24 hr 10 [facility] tablet acetaminoph Yes 1000mg Take 1,[address] [facility] en 7-04 mg by [facility] (TYLENOL) 13:32: mouth Medical 500 MG 10 every 8 Center tablet (eight) hours as needed for Pain. insulin Yes Inject [address] [facility] lispro 7-04 to 10 [facility] (HUMALOG) 13:32: units Medical 100 unit/mL 10 subcutaneo Ce nter InPn usly three times daily per sliding scale; No sliding scale parameters available per doctor office . aspirin 81 Yes 81mg QD Take [address] [facility] chewable 7-04 by mouth [facility] tablet 13:32: daily. Medical 10 Center clopidogrel Yes 75mg QD Take [address] [facility] (PLAVIX) 75 7-04 by mouth [facility] mg tablet 13:32: daily. Medica l 10 Center bumetanide Yes 1mg Q.5D Take [address] [facility] (BUMEX) 1 7-04 by mouth 2 [facility] MG tablet 13:32: (two) Medical 10 times Center daily. carvediloL Yes 25mg Q.5D Take [address] [facility] (COREG) 25 7-04 by mouth 2 [facility] es MG tablet 13:32: (two) Medical 10 times Center daily. aspirin 81 Yes 81mg Take [address] [facility] EC 7-04 by mouth. [facility] tablet 13:32: [facility] 10 Center atorvastati Yes 80mg QD Take [address] [facility] (LIPITOR) 7-04 by mouth [facility] 80 MG 13:32: every Medical tablet 10 evening. Center isosorbide Yes Chronic 60mg QD Take [address] [facility] mononitrate 7-04 Stable by mouth Siddhartha kes (IMDUR) 60 13:32: Angina daily. Med ical MG 24 hr 10 [facility] tablet acetaminoph Yes 1000mg Take 1,[address] [facility] en 7-04 mg by [facility] (TYLENOL) 13:32: mouth Medical 500 MG 10 every 8 Center tablet (eight) hours as needed for Pain. insulin Yes Inject [address] [facility] lispro 7-04 to 10 [facility] (HUMALOG) 13:32: units Medical 100 unit/mL 10 subcutaneo Ce nter InPn usly three times daily per sliding scale; No sliding scale parameters available per doctor office . aspirin 81 Yes 81mg QD Take [address] [facility] chewable 7-04 by mouth [facility] tablet 13:32: daily. Medical 10 Center clopidogrel Yes 75mg QD Take [address] [facility] (PLAVIX) 75 7-04 by mouth [facility] mg tablet 13:32: daily. Medica l 10 Center bumetanide Yes 1mg Q.5D Take [address] [facility] (BUMEX) 1 7-04 by mouth 2 [facility] MG tablet 13:32: (two) Medical 10 times Center daily. carvediloL Yes 25mg Q.5D Take [address] [facility] (COREG) 25 7-04 by mouth 2 Lo es MG tablet 13:32: (two) Medical 10 times Center daily. aspirin 81 2021-0 Yes 81mg Take [address] [facility] EC 7-04 by [facility] tablet 13:32: Medical 10 [place] atorvastati Yes 80mg QD Take [address] [facility] (LIPITOR) 7-04 by mouth [facility] 80 MG 13:32: every Medical tablet 10 evening. [place] isosorbide Yes Chronic 60mg QD Take [address] [facility] mononitrate 7-04 Stable by mouth Siddhartha kes (IMDUR) 60 13:32: Angina daily. Med ical MG 24 hr 10 [facility] tablet acetaminoph Yes 1000mg Take 1,[address] [facility] en 7-04 mg by [facility] (TYLENOL) 13:32: mouth Medical 500 MG 10 every 8 Center tablet (eight) hours as needed for Pain. insulin Yes Inject [address] [facility] lispro 7-04 to 10 [facility] (HUMALOG) 13:32: units Medical 100 unit/mL 10 subcutaneo Ce nter InPn usly three times daily per sliding scale; No sliding scale parameters available per doctor office . aspirin 81 Yes 81mg QD Take [address] [facility] chewable 7-04 by mouth [facility] tablet 13:32: daily. [address] clopidogrel Yes 75mg QD Take [address] [facility] (PLAVIX) 75 7-04 by mouth [facility] mg tablet 13:32: daily. Medica l [address] [place] [address] bumetanide Yes 1mg Q.5D Take [address] [facility] (BUMEX) 1 7-04 by mouth 2 [facility] MG tablet 13:32: (two) Medical 10 times Center daily. carvediloL Yes 25mg Q.5D Take [address] [facility] (COREG) 25 7-04 by mouth 2 Lo es MG tablet 13:32: (two) Medical 10 times Center daily. aspirin 81 Yes 81mg Take [address] [facility] EC 7-04 by mouth. [facility] tablet 13:32: Medical 10 [place] atorvastati Yes 80mg QD Take [address] [facility] (LIPITOR) 7-04 by mouth [facility] 80 MG 13:32: every Medical tablet 10 evening. [place] isosorbide Yes Chronic 60mg QD Take [address] [facility] mononitrate 7-04 Stable by mouth Siddhartha kes (IMDUR) 60 13:32: Angina daily. Med ical MG 24 hr 10 [facility] tablet acetaminoph Yes 1000mg Take 1,[address] [facility] en 7-04 mg by [facility] (TYLENOL) 13:32: mouth Medical 500 MG 10 every 8 Center tablet (eight) hours as needed for Pain. insulin Yes Inject [address] [facility] lispro 7-04 to 10 [facility] (HUMALOG) 13:32: units Medical 100 unit/mL 10 subcutaneo Ce nter InPn usly three times daily per sliding scale; No sliding scale parameters available per doctor office . aspirin 81 Yes 81mg QD Take [address] MG chewable 7-04 by mouth [facility] tablet 13:32: daily. [address] clopidogrel Yes 75mg QD Take [address] [facility] (PLAVIX) 75 7-04 by mouth [facility] mg tablet 13:32: daily. Medica l [address] [place] [address] bumetanide Yes 1mg Q.5D Take [address] [facility] (BUMEX) 1 7-04 by mouth 2 [facility] MG tablet 13:32: (two) Medical 10 times Center daily. carvediloL Yes 25mg Q.5D Take [address] (COREG) 25 7-04 by mouth 2 Lo es MG tablet 13:32: (two) Medical 10 times Center daily. aspirin 81 Yes 81mg Take [address] MG EC 7-04 by mouth. [facility] tablet 13:32: Medical 10 [place] atorvastati Yes 80mg QD Take [address] [facility] (LIPITOR) 7-04 by mouth [facility] 80 MG 13:32: every Medical tablet 10 evening. Center isosorbide Yes Chronic 60mg QD Take [address] [facility] mononitrate 7-04 Stable by mouth Siddhartha kes (IMDUR) 60 13:32: Angina daily. Med ical MG 24 hr 10 [facility] tablet acetaminoph Yes 1000mg Take 1,[address] [facility] en 7-04 mg by [facility] (TYLENOL) 13:32: mouth Medical 500 MG 10 every 8 Center tablet (eight) hours as needed for Pain. insulin Yes Inject [address] [facility] lispro 7-04 to 10 [facility] (HUMALOG) 13:32: units Medical 100 unit/mL 10 subcutaneo Ce nter InPn usly three times daily per sliding scale; No sliding scale parameters available per doctor office . aspirin 81 Yes 81mg QD Take [address] MG chewable 7-04 by mouth [facility] tablet 13:32: daily. [address] clopidogrel Yes 75mg QD Take [address] [facility] (PLAVIX) 75 7-04 by mouth [facility] mg tablet 13:32: daily. Medica l [address] [place] [address] bumetanide Yes 1mg Q.5D Take [address] [facility] (BUMEX) 1 7-04 by mouth 2 [facility] MG tablet 13:32: (two) Medical 10 times Center daily. carvediloL Yes 25mg Q.5D Take [address] (COREG) 25 7-04 by mouth 2 Lo es MG tablet 13:32: (two) Medical 10 times Center daily. aspirin 81 Yes 81mg Take [address] MG EC 7-04 by mouth. [facility] tablet 13:32: Medical [address] [place] [address] atorvastati Yes 80mg QD Take [address] [facility] (LIPITOR) 7-04 by mouth [facility] 80 MG 13:32: every Medical tablet 10 evening. [place] isosorbide Yes Chronic 60mg QD Take [address] [facility] mononitrate 7-04 Stable by mouth Siddhartha kes (IMDUR) 60 13:32: Angina daily. Med ical MG 24 hr 10 [facility] tablet acetaminoph Yes 1000mg Take 1,[address] [facility] en 7-04 mg by [facility] (TYLENOL) 13:32: mouth Medical 500 MG 10 every 8 Center tablet (eight) hours as needed for Pain. insulin Yes Inject [address] [facility] lispro 7-04 to 10 [facility] (HUMALOG) 13:32: units Medical 100 unit/mL 10 subcutaneo Ce nter InPn usly three times daily per sliding scale; No sliding scale parameters available per doctor office . aspirin 81 Yes 81mg QD Take [address] MG chewable 7-04 by mouth [facility] tablet 13:32: daily. [address] clopidogrel Yes 75mg QD Take [address] [facility] (PLAVIX) 75 7-04 by mouth [facility] mg tablet 13:32: daily. Medica l 10 [place] bumetanide Yes 1mg Q.5D Take [address] [facility] (BUMEX) 1 7-04 by mouth 2 [facility] MG tablet 13:32: (two) Medical 10 times Center daily. carvediloL Yes 25mg Q.5D Take [address] [facility] (COREG) 25 7-04 by mouth 2 [facility] es MG tablet 13:32: (two) Medical 10 times Center daily. aspirin 81 Yes 81mg Take [address] MG EC 7-04 by mouth. [facility] tablet 13:32: [address] atorvastati Yes 80mg QD Take [address] [facility] (LIPITOR) 7-04 by mouth [facility] 80 MG 13:32: every Medical tablet 10 evening. [place] isosorbide Yes Chronic 60mg QD Take [address] [facility] mononitrate 7-04 Stable by mouth Siddhartha kes (IMDUR) 60 13:32: Angina daily. Med ical MG 24 hr 10 [facility] tablet acetaminoph Yes 1000mg Take 1,[address] [facility] en 7-04 mg by [facility] (TYLENOL) 13:32: mouth Medical 500 MG 10 every 8 Center tablet (eight) hours as needed for Pain. insulin Yes Inject [address] [facility] lispro 7-04 to 10 [facility] (HUMALOG) 13:32: units Medical 100 unit/mL 10 subcutaneo Ce nter InPn usly three times daily per sliding scale; No sliding scale parameters available per doctor office . aspirin 81 Yes 81mg QD Take [address] MG chewable 7-04 by mouth [facility] tablet 13:32: daily. [address] clopidogrel Yes 75mg QD Take [address] [facility] (PLAVIX) 75 7-04 by mouth [facility] mg tablet 13:32: daily. Medica l [address] [place] [address] bumetanide Yes 1mg Q.5D Take [address] [facility] (BUMEX) 1 7-04 by mouth 2 [facility] MG tablet 13:32: (two) Medical 10 times Center daily. carvediloL 2020-0 Yes 25mg Q.5D Take [address] (COREG) 25 7-04 by mouth 2 [facility] es MG tablet 13:32: (two) Medical 10 times Center daily. aspirin 81 2020-0 Yes 81mg Take [address] [facility] EC 7-04 by [facility] 13:32: Medical 10 Center bisacodyL 2020-0 Yes 5mg Take [address] [facility] (DULCOLAX) 7-04 tablet (5 [facility] 5 mg EC 00:00: mg total) Medic al tablet 00 by mouth Center daily as needed for Constipati on. HYDROcodone 2020-0 Yes 1{tbl} Take [address] [facility] [address] [facility] -acetaminop 7-04 tablet by Lo es hen (NORCO 00:00: mouth Medica l 10-325) 00 every 8 Center 10-325 mg (eight) per tablet hours as needed for Pain. Max Daily Amount: 3 tablets bisacodyL 2020-0 Yes 5mg Take [address] [facility] (DULCOLAX) 7-04 tablet (5 [facility] 5 mg EC 00:00: mg total) Medic al tablet 00 by mouth Center daily as needed for Constipati on. HYDROcodone 2020-0 Yes 1{tbl} Take [address] [facility] [address] [facility] -acetaminop 7-04 tablet by Lo es hen (NORCO 00:00: mouth Medica l 10-325) 00 every 8 Center 10-325 mg (eight) per tablet hours as needed for Pain. Max Daily Amount: 3 tablets bisacodyL 2021-0 Yes 5mg Take [address] [facility] (DULCOLAX) 7-04 tablet (5 [facility] 5 mg EC 00:00: mg total) Medic al tablet 00 by mouth Center daily as needed for Constipati on. HYDROcodone 2020-0 Yes 1{tbl} Take [address] [facility] [address] [facility] -acetaminop 7-04 tablet by Lo es hen (NORCO 00:00: mouth Medica l 10-325) 00 every 8 Center 10-325 mg (eight) per tablet hours as needed for Pain. Max Daily Amount: 3 tablets bisacodyL 2021-0 Yes 5mg Take [address] [facility] (DULCOLAX) 7-04 tablet (5 [facility] 5 mg EC 00:00: mg total) Medic al tablet 00 by mouth Center daily as needed for Constipati on. HYDROcodone 0 Yes 1{tbl} Take [address] [facility] [address] [facility] -acetaminop 7-04 tablet by Ol es hen (NORCO 00:00: mouth Medica l 10-325) 00 every 8 Center 10-325 mg (eight) per tablet hours as needed for Pain. Max Daily Amount: 3 tablets bisacodyL 0 Yes 5mg Take [address] [facility] (DULCOLAX) 7-04 tablet (5 [facility] 5 mg EC 00:00: mg total) Medic al tablet 00 by mouth Center daily as needed for Constipati on. HYDROcodone 0 Yes 1{tbl} Take [address] [facility] [address] [facility] -acetaminop 7-04 tablet by Lo es hen (MCKINNEY 00:00: mouth Medica l 10-325) 00 every 8 Center 10-325 mg (eight) per tablet hours as needed for Pain. Max Daily Amount: 3 tablets bisacodyL 0 Yes 5mg Take [address] [facility] (DULCOLAX) 7-04 tablet (5 [facility] 5 mg EC 00:00: mg total) Medic al tablet 00 by mouth Center daily as needed for Constipati on. HYDROcodone 0 Yes 1{tbl} Take [address] [facility] [address] [facility] -acetaminop 7-04 tablet by Lo es hen ([place]NEY 00:00: mouth Medica l 10-325) 00 every 8 Center 10-325 mg (eight) per tablet hours as needed for Pain. Max Daily Amount: 3 tablets bisacodyL 2020-0 Yes 5mg Take [address] [facility] (DULCOLAX) 7-04 tablet (5 [facility] 5 mg EC 00:00: mg total) Medic al tablet 00 by mouth Center daily as needed for Constipati on. HYDROcodone 0 Yes 1{tbl} Take [address] [facility] [address] [facility] -acetaminop 7-04 tablet by Lo es hen (NORCO 00:00: mouth Medica l 10-325) 00 every 8 Center 10-325 mg (eight) per tablet hours as needed for Pain. Max Daily Amount: 3 tablets amoxicillin 2020-0 2021- No 1{tbl} Q.5D Take [address] [facility] -clavulanat 7-04 07-11 tablet by Siddhartha kes e 00:00: 23:59 mouth 2 Medical (AUGMENTIN) 00 :00 (two) Center 875-125 mg times per tablet daily for 7 days. doxycycline 2020-0 1- No 100mg Q.5D Take [address] [facility] [address] [facility] (MONODOX) 7-04 07-11 [facility] 100 MG 00:00: 23:59 (100 mg Medical capsule 00 :00 total) by Center mouth 2 (two) times daily for 7 days. amoxicillin 2020-2020- No 1{tbl} Q.5D Take [address] -clavulanat 7-04 07-11 tablet by Siddhartha kes e 00:00: 23:59 mouth 2 Medical (AUGMENTIN) 00 :00 (two) Center 875-125 mg times per tablet daily for 7 days. doxycycline 2020-2020- No 100mg Q.5D Take [address] [facility] [address] [facility] (MONODOX) 7- 07-11 [facility] 100 MG 00:00: 23:59 (100 mg Medical capsule 00 :00 total) by Center mouth 2 (two) times daily for 7 days. amoxicillin 2020-2020- No 1{tbl} Q.5D Take [address] -clavulanat 7-04 07-11 tablet by Siddhartha kes e 00:00: 23:59 mouth 2 Medical (AUGMENTIN) 00 :00 (two) Center 875-125 mg times per tablet daily for 7 days. doxycycline 2020-2020- No 100mg Q.5D Take [address] [facility] [address] [facility] (MONODOX) 7-04 07-11 [facility] 100 MG 00:00: 23:59 (100 mg Medical capsule 00 :00 total) by Center mouth 2 (two) times daily for 7 days. amoxicillin 2020-2020- No 1{tbl} Q.5D Take [address] -clavulanat 7-04 07-11 tablet by Siddhartha kes e 00:00: 23:59 mouth 2 Medical (AUGMENTIN) 00 :00 (two) Center 875-125 mg times per tablet daily for 7 days. doxycycline 2020-1- No 100mg Q.5D Take [address] [facility] [address] [facility] (MONODOX) 7-04 07-11 [facility] 100 MG 00:00: 23:59 (100 mg Medical capsule 00 :00 total) by Center mouth 2 (two) times daily for 7 days. amoxicillin 2020- No 1{tbl} Q.5D Take [address] -clavulanat 7-07 03-11 tablet by Siddhartha kes e 00:00: 23:59 mouth 2 Medical (AUGMENTIN) 00 :00 (two) Center 875-125 mg times per tablet daily for 7 days. doxycycline 2020- No 100mg Q.5D Take [address] [facility] [address] [facility] (MONODOX) 7-07 03-11 [facility] 100 MG 00:00: 23:59 (100 mg Medical capsule 00 :00 total) by Center mouth 2 (two) times daily for 7 days. amoxicillin 2020- No 1{tbl} Q.5D Take [address] -clavulanat 7-07 03-11 tablet by Siddhartha kes e 00:00: 23:59 mouth 2 Medical (AUGMENTIN) 00 :00 (two) Center 875-125 mg times per tablet daily for 7 days. doxycycline 2020- No 100mg Q.5D Take [address] [facility] [address] [facility] (MONODOX) 7-07 03-11 [facility] 100 MG 00:00: 23:59 (100 mg Medical capsule 00 :00 total) by Center mouth 2 (two) times daily for 7 days. amoxicillin 2020- No 1{tbl} Q.5D Take [address] -clavulanat 7-07 03-11 tablet by Siddhartha kes e 00:00: 23:59 mouth 2 Medical (AUGMENTIN) 00 :00 (two) Center 875-125 mg times per tablet daily for 7 days. doxycycline 2020- No 100mg Q.5D Take [address] [facility] [address] [facility] (MONODOX) 7-07 03-11 [facility] 100 MG 00:00: 23:59 (100 mg Medical capsule 00 :00 total) by Center mouth 2 (two) times daily for 7 days. amoxicillin 2020- No 1{tbl} Take [address] -clavulanat 7-04 07-04 tablet by Siddhartha kes e 00:00: 00:00 mouth Medical (AUGMENTIN) 00 :00 every 12 Cent er 875-125 mg (twelve) per tablet hours for 7 days. doxycycline 2020-1- No 100mg Take [address] [facility] (MONODOX) 7-04 07-04 [facility] 100 MG 00:00: 00:00 (100 mg Medical capsule 00 :00 total) by Center mouth every 12 (twelve) hours for 7 days. amoxicillin 2020-2020- No 1{tbl} Take [address] -clavulanat 7-04 07-04 tablet by Siddhartha kes e 00:00: 00:00 mouth Medical (AUGMENTIN) 00 :00 every 12 Cent er 875-125 mg (twelve) per tablet hours for 7 days. doxycycline 2020-2020- No 100mg Take [address] [facility] (MONODOX) 7-04 07-04 [facility] 100 MG 00:00: 00:00 (100 mg Medical capsule 00 :00 total) by Center mouth every 12 (twelve) hours for 7 days. amoxicillin 2020-2020- No 1{tbl} Take [address] -clavulanat 7-04 07-04 tablet by Siddhartha kes e 00:00: 00:00 mouth Medical (AUGMENTIN) 00 :00 every 12 Cent er 875-125 mg (twelve) per tablet hours for 7 days. doxycycline 2020-2020- No 100mg Take [address] [facility] (MONODOX) 7-04 07-04 [facility] 100 MG 00:00: 00:00 (100 mg Medical capsule 00 :00 total) by Center mouth every 12 (twelve) hours for 7 days. amoxicillin 2020-2020- No 1{tbl} Take [address] -clavulanat 7-04 07-04 tablet by Siddhartha [employer] 00:00: 00:00 mouth Medical (AUGMENTIN) 00 :00 every 12 Cent er 875-125 mg (twelve) per tablet hours for 7 days. doxycycline 2020-2020- No 100mg Take [address] [facility] (MONODOX) 7-04 07-04 [facility] 100 MG 00:00: 00:00 (100 mg Medical capsule 00 :00 total) by Center mouth every 12 (twelve) hours for 7 days. amoxicillin 2020-2020- No 1{tbl} Take [address] -clavulanat 7-04 07-04 tablet by Siddhartha kes e 00:00: 00:00 mouth Medical (AUGMENTIN) 00 :00 every 12 Cent er 875-125 mg (twelve) per tablet hours for 7 days. doxycycline 2020-2020- No 100mg Take [address] [facility] (MONODOX) -07 03-04 [facility] 100 MG 00:00: 00:00 (100 mg Medical capsule 00 :00 total) by Center mouth every 12 (twelve) hours for 7 days. amoxicillin 2020-2020- No 1{tbl} Take [address] -clavulanat -07 03- tablet by Siddhartha kes e 00:00: 00:00 mouth Medical (AUGMENTIN) 00 :00 every 12 Cent er 875-125 mg (twelve) per tablet hours for 7 days. doxycycline 2020-2020- No 100mg Take [address] [facility] [address] [facility] (MONODOX) 09-29- capsule [facility] 100 MG 00:00: 00:00 (100 mg Medical capsule 00 :00 total) by Center mouth every 12 (twelve) hours for 7 days. amoxicillin 2020-2020- No 1{tbl} Take [address] -clavulanat -07 03-04 tablet by Siddhartha kes e 00:00: 00:00 mouth Medical (AUGMENTIN) 00 :00 every 12 Cent er 875-125 mg (twelve) per tablet hours for 7 days. doxycycline 2020- No 100mg Take [address] [facility] [address] [facility] (MONODOX) 09-29- capsule [facility] 100 MG 00:00: 00:00 (100 mg Medical capsule 00 :00 total) by Center mouth every 12 (twelve) hours for 7 days. Levemir No 50U Q12H inject 50 [facility] FlexTouch 6-22 unit by ealth [email or web address] 00:00: subcutaneo Insulin 100 00 us route 2 unit/mL (3 times mL) every day subcutaneou s pen Levemir 2020-0 No 50U Q12H inject 50 [facility] FlexTouch 6-22 unit by ealth [email or web address]-100 00:00: subcutaneo Insulin 100 00 us route 2 unit/mL (3 times mL) every day subcutaneou s pen Levemir 2020-0 No 50U Q12H inject 50 [facility] FlexTouch 6-22 unit by ealth [email or web address]-100 00:00: subcutaneo Insulin 100 00 us route 2 unit/mL (3 times mL) every day subcutaneou s pen Levemir No 50U Q12H inject 50 [facility] FlexTouch 6-22 unit by ealth [email or web address]-100 00:00: subcutaneo Insulin 100 00 us route 2 unit/mL (3 times mL) every day subcutaneou s pen Levemir No 50U Q12H inject 50 [facility] FlexTouch 6-22 unit by ealth [email or web address]-100 00:00: subcutaneo Insulin 100 00 us route 2 unit/mL (3 times mL) every day subcutaneou s pen Levemir No 50U Q12H inject 50 [facility] FlexTouch 6-22 unit by ealth [email or web address]-100 00:00: subcutaneo Insulin 100 00 us route 2 unit/mL (3 times mL) every day subcutaneou s pen Levemir No 50U Q12H inject 50 [facility] FlexTouch 6-22 unit by ealth [email or web address]-100 00:00: subcutaneo Insulin 100 00 us route 2 unit/mL (3 times mL) every day subcutaneou s pen Levemir No 50U Q12H inject 50 [facility] FlexTouch 6-22 unit by ealth [email or web address]-100 00:00: subcutaneo Insulin 100 00 us route 2 unit/mL (3 times mL) every day subcutaneou s pen Levemir 2020- No 50U Q12H inject 50 [facility] FlexTouch 6-22 11-03 unit by ealth [email or web address] 00:00: 00:00 subcutaneo Insulin 100 00 :00 us route 2 unit/mL (3 times mL) every day subcutaneou s pen Levemir 2020- No 50U Q12H inject 50 [facility] FlexTouch 6-22 11-03 unit by ealth [email or web address] 00:00: 00:00 subcutaneo Insulin 100 00 :00 us route 2 unit/mL (3 times mL) every day subcutaneou s pen Levemir 2020- No 50U Q12H inject 50 [facility] FlexTouch 09-17- unit by ealth [email or web address] 00:00: 00:00 subcutaneo Insulin 100 00 :00 us route 2 unit/mL (3 times mL) every day subcutaneou s pen Levemir 2020- No 50U Q12H inject 50 [facility] FlexTouch 09-17- unit by ealth [email or web address]-100 00:00: 00:00 subcutaneo Insulin 100 00 :00 us route 2 unit/mL (3 times mL) every day subcutaneou s pen Levemir 2020- No 50U Q12H inject 50 [facility] FlexTouch 09-17- unit by ealth [email or web address]-100 00:00: 00:00 subcutaneo Insulin 100 00 :00 us route 2 unit/mL (3 times mL) every day subcutaneou s pen Levemir 2020- No 50U Q12H inject 50 [facility] FlexTouch 09-17- unit by ealth [email or web address] 00:00: 00:00 subcutaneo Insulin 100 00 :00 us route 2 unit/mL (3 times mL) every day subcutaneou s pen Levemir 2020- No 50U Q12H inject 50 [facility] FlexTouch 09-17- unit by ealth [email or web address]-100 00:00: 00:00 subcutaneo Insulin 100 00 :00 us route 2 unit/mL (3 times mL) every day subcutaneou s pen Levemir 2020- No 50U Q12H inject 50 [facility] FlexTouch 09-17- unit by ealth [email or web address]-100 00:00: 00:00 subcutaneo Insulin 100 00 :00 us route 2 unit/mL (3 times mL) every day subcutaneou s pen Levemir 2020- No 50U Q12H inject 50 [facility] FlexTouch 09-17- unit by ealth [email or web address]-100 00:00: 00:00 subcutaneo Insulin 100 00 :00 us route 2 unit/mL (3 times mL) every day subcutaneou s pen Levemir 2020- No 50U Q12H inject 50 [facility] FlexTouch 09-17 unit by ealth [email or web address]-100 00:00: 00:00 subcutaneo Insulin 100 00 :00 us route 2 unit/mL (3 times mL) every day subcutaneou s pen Levemir 2020- No 50U Q12H inject 50 [facility] FlexTouch 09-17 unit by ealth [email or web address] 00:00: 00:00 subcutaneo Insulin 100 00 :00 us route 2 unit/mL (3 times mL) every day subcutaneou s pen Levemir 2020- No 50U Q12H inject 50 [facility] FlexTouch 09-17 unit by ealth [email or web address]-100 00:00: 00:00 subcutaneo Insulin 100 00 :00 us route 2 unit/mL (3 times mL) every day subcutaneou s pen metolazone 2020- No take 1 [facility] 5 mg tablet 09-17 tablet by ea lth 00:00: 00:00 oral route 00 :00 every day Januvia 50 2020- No 1{table Q1D take 1 [facility] mg tablet 09-17 t} tablet by ealt h 00:00: 00:00 oral route 00 :00 every day acetaminoph 2020- No 1{table Q8H take 1 Dx: [facility] en 300 09-17 t} tablet by [email or web address], eal th mg-codeine 00:00: 00:00 oral route M14.679, 60 mg 00 :00 every 8 E11.621, tablet hours as E11.40 needed Humalog 2020- No inject [facility] KwikPen 09-17 5-10 Units ealth (U-100) 00:00: 00:00 by Insulin 100 00 :00 Subcutaneo unit/mL us route 3 subcutaneou times per s day on a medium sliding scale three times a day before meals metolazone 2020- No take 1 [facility] 5 mg tablet 09-17 tablet by ea lth 00:00: 00:00 oral route 00 :00 every day Januvia 50 2020-2020- No 1{table Q1D take 1 [facility] mg tablet 09-17 t} tablet by ealt h 00:00: 00:00 oral route 00 :00 every day acetaminoph 2020- No 1{table Q8H take 1 Dx: [facility] en 300 09-17 t} tablet by [email or web address], eal th mg-codeine 00:00: 00:00 oral route M14.679, 60 mg 00 :00 every 8 E11.621, tablet hours as E11.40 needed Humalog 2020- No inject [facility] KwikPen 09-17 5-10 Units ealth (U-100) 00:00: 00:00 by Insulin 100 00 :00 Subcutaneo unit/mL us route 3 subcutaneou times per s day on a medium sliding scale three times a day before meals metolazone 2020- No take 1 [facility] 5 mg tablet 09-17 tablet by ea lth 00:00: 00:00 oral route 00 :00 every day Januvia 50 2020-2020- No 1{table Q1D take 1 [facility] mg tablet 09-17 t} tablet by ealt h 00:00: 00:00 oral route 00 :00 every day acetaminoph 2020- No 1{table Q8H take 1 Dx: [facility] en 300 09-17 t} tablet by [email or web address], eal th mg-codeine 00:00: 00:00 oral route M14.679, 60 mg 00 :00 every 8 E11.621, tablet hours as E11.40 needed Humalog 2020- No inject [facility] KwikPen 09-17 5-10 Units ealth (U-100) 00:00: 00:00 by Insulin 100 00 :00 Subcutaneo unit/mL us route 3 subcutaneou times per s day on a medium sliding scale three times a day before meals metolazone 2020- No take 1 [facility] 5 mg tablet 09-17 tablet by ea lth 00:00: 00:00 oral route 00 :00 every day Januvia 50 2020- No 1{table Q1D take 1 [facility] mg tablet 09-17 t} tablet by ealt h 00:00: 00:00 oral route 00 :00 every day acetaminoph 2020- No 1{table Q8H take 1 Dx: [facility] en 300 09-17 t} tablet by [email or web address], eal th mg-codeine 00:00: 00:00 oral route M14.679, 60 mg 00 :00 every 8 E11.621, tablet hours as E11.40 needed Humalog 2020- No inject [facility] KwikPen 09-17- 5-10 Units ealth (U-100) 00:00: 00:00 by Insulin 100 00 :00 Subcutaneo unit/mL us route 3 subcutaneou times per s day on a medium sliding scale three times a day before meals metolazone 2020- No take 1 [facility] 5 mg tablet 09-17 tablet by ea lth 00:00: 00:00 oral route 00 :00 every day Januvia 50 2020- No 1{table Q1D take 1 [facility] mg tablet 09-17 t} tablet by ealt h 00:00: 00:00 oral route 00 :00 every day acetaminoph 2020- No 1{table Q8H take 1 Dx: [facility] en 300 09-17 t} tablet by [email or web address], eal th mg-codeine 00:00: 00:00 oral route M14.679, 60 mg 00 :00 every 8 E11.621, tablet hours as E11.40 needed Humalog 2020- No inject [facility] KwikPen 09-17-03 5-10 Units ealth (U-100) 00:00: 00:00 by Insulin 100 00 :00 Subcutaneo unit/mL us route 3 subcutaneou times per s day on a medium sliding scale three times a day before meals metolazone 2020- No take 1 [facility] 5 mg tablet 09-17 tablet by ea lth 00:00: 00:00 oral route 00 :00 every day Januvia 50 2020- No 1{table Q1D take 1 [facility] mg tablet 09-17 t} tablet by ealt h 00:00: 00:00 oral route 00 :00 every day acetaminoph 2020- No 1{table Q8H take 1 Dx: [facility] en 300 09-17 t} tablet by [email or web address], eal th mg-codeine 00:00: 00:00 oral route M14.679, 60 mg 00 :00 every 8 E11.621, tablet hours as E11.40 needed Humalog 2020- No inject [facility] KwikPen 09-17- 5-10 Units ealth (U-100) 00:00: 00:00 by Insulin 100 00 :00 Subcutaneo unit/mL us route 3 subcutaneou times per s day on a medium sliding scale three times a day before meals metolazone 2020- No take 1 [facility] 5 mg tablet 09-17 tablet by ea lth 00:00: 00:00 oral route 00 :00 every day Orionuvia 50 2020- No 1{table Q1D take 1 [facility] mg tablet 09-17 t} tablet by ealt h 00:00: 00:00 oral route 00 :00 every day acetaminoph 2020- No 1{table Q8H take 1 Dx: [facility] en 300 09-17 t} tablet by [email or web address], eal th mg-codeine 00:00: 00:00 oral route M14.679, 60 mg 00 :00 every 8 E11.621, tablet hours as E11.40 needed Humalog 2020- No inject [facility] KwikPen 09-17-03 5-10 Units ealth (U-100) 00:00: 00:00 by Insulin 100 00 :00 Subcutaneo unit/mL us route 3 subcutaneou times per s day on a medium sliding scale three times a day before meals metolazone 2020- No take 1 [facility] 5 mg tablet 09-17 tablet by ea lt 00:00: 00:00 oral route 00 :00 every day Januvia 50 2020- No 1{table Q1D take 1 [facility] mg tablet 09-17 t} tablet by ealt h 00:00: 00:00 oral route 00 :00 every day acetaminoph 2020- No 1{table Q8H take 1 Dx: [facility] en 300 09-17 t} tablet by [email or web address], eal th mg-codeine 00:00: 00:00 oral route M14.679, 60 mg 00 :00 every 8 E11.621, tablet hours as E11.40 needed Humalog 2020- No inject [facility] KwikPen 09-17 5-10 Units ealth (U-100) 00:00: 00:00 by Insulin 100 00 :00 Subcutaneo unit/mL us route 3 subcutaneou times per s day on a medium sliding scale three times a day before meals metolazone 2020- No take 1 [facility] 5 mg tablet 09-17 tablet by ea lt 00:00: 00:00 oral route 00 :00 every day Orionuvia 50 2020- No 1{table Q1D take 1 [facility] mg tablet 09-17 t} tablet by ealt h 00:00: 00:00 oral route 00 :00 every day acetaminoph 2020- No 1{table Q8H take 1 Dx: [facility] en 300 09-17 t} tablet by [email or web address], eal th mg-codeine 00:00: 00:00 oral route M14.679, 60 mg 00 :00 every 8 E11.621, tablet hours as E11.40 needed Humalog 2020- No inject [facility] KwikPen 09-17- 5-10 Units ealth (U-100) 00:00: 00:00 by Insulin 100 00 :00 Subcutaneo unit/mL us route 3 subcutaneou times per s day on a medium sliding scale three times a day before meals metolazone 2020- No take 1 [facility] 5 mg tablet 09-17 tablet by ea lth 00:00: 00:00 oral route 00 :00 every day Januvia 50 2020- No 1{table Q1D take 1 [facility] mg tablet 09-17 t} tablet by ealt h 00:00: 00:00 oral route 00 :00 every day acetaminoph 2020- No 1{table Q8H take 1 Dx: [facility] en 300 09-17 t} tablet by [email or web address], eal th mg-codeine 00:00: 00:00 oral route M14.679, 60 mg 00 :00 every 8 E11.621, tablet hours as E11.40 needed Humalog 2020- No inject [facility] KwikPen 09-17 5-10 Units ealth (U-100) 00:00: 00:00 by Insulin 100 00 :00 Subcutaneo unit/mL us route 3 subcutaneou times per s day on a medium sliding scale three times a day before meals metolazone 2020- No take 1 [facility] 5 mg tablet 09-17 tablet by ea lth 00:00: 00:00 oral route 00 :00 every day [place]uvia 50 2020- No 1{table Q1D take 1 [facility] mg tablet 09-17 t} tablet by ealt h 00:00: 00:00 oral route 00 :00 every day acetaminoph 2020- No 1{table Q8H take 1 Dx: [facility] en 300 09-17 t} tablet by [email or web address], eal th mg-codeine 00:00: 00:00 oral route M14.679, 60 mg 00 :00 every 8 E11.621, tablet hours as E11.40 needed Humalog 2020- No inject [facility] KwikPen 09-17-03 5-10 Units ealth (U-100) 00:00: 00:00 by Insulin 100 00 :00 Subcutaneo unit/mL us route 3 subcutaneou times per s day on a medium sliding scale three times a day before meals metolazone 2020- No take 1 [facility] 5 mg tablet 09-17 tablet by ea lth 00:00: 00:00 oral route 00 :00 every day Januvia 50 2020- No 1{table Q1D take 1 [facility] mg tablet 09-17 t} tablet by ealt h 00:00: 00:00 oral route 00 :00 every day acetaminoph 2020- No 1{table Q8H take 1 Dx: [facility] en 300 09-17 t} tablet by [email or web address], eal th mg-codeine 00:00: 00:00 oral route M14.679, 60 mg 00 :00 every 8 E11.621, tablet hours as E11.40 needed Humalog 2020- No inject [facility] KwikPen 09-17 5-10 Units ealth (U-100) 00:00: 00:00 by Insulin 100 00 :00 Subcutaneo unit/mL us route 3 subcutaneou times per s day on a medium sliding scale three times a day before meals metolazone 2020- No take 1 [facility] 5 mg tablet 09-17 tablet by ea lth 00:00: 00:00 oral route 00 :00 every day Januvia 50 2020- No 1{table Q1D take 1 [facility] mg tablet 09-17 t} tablet by ealt h 00:00: 00:00 oral route 00 :00 every day acetaminoph 2020- No 1{table Q8H take 1 Dx: [facility] en 300 09-17 t} tablet by [email or web address], eal th mg-codeine 00:00: 00:00 oral route M14.679, 60 mg 00 :00 every 8 E11.621, tablet hours as E11.40 needed Humalog 2020- No inject [facility] KwikPen 09-17 5-10 Units ealth (U-100) 00:00: 00:00 by Insulin 100 00 :00 Subcutaneo unit/mL us route 3 subcutaneou times per s day on a medium sliding scale three times a day before meals metolazone 2020- No take 1 [facility] 5 mg tablet 09-17 tablet by ea lth 00:00: 00:00 oral route 00 :00 every day Januvia 50 2020- No 1{table Q1D take 1 [facility] mg tablet 09-17 t} tablet by ealt h 00:00: 00:00 oral route 00 :00 every day acetaminoph 2020- No 1{table Q8H take 1 Dx: [facility] en 300 09-17 t} tablet by [id number], eal th mg-codeine 00:00: 00:00 oral route M14.679, 60 mg 00 :00 every 8 E11.621, tablet hours as E11.40 needed Humalog 2020- No inject [facility] KwikPen 09-17 5-10 Units ealth (U-100) 00:00: 00:00 by Insulin 100 00 :00 Subcutaneo unit/mL us route 3 subcutaneou times per s day on a medium sliding scale three times a day before meals metolazone 2020- No take 1 [facility] 5 mg tablet 09-17 tablet by ea lth 00:00: 00:00 oral route 00 :00 every day Januvia 50 2020- No 1{table Q1D take 1 [facility] mg tablet 09-17 t} tablet by ealt h 00:00: 00:00 oral route 00 :00 every day acetaminoph 2020- No 1{table Q8H take 1 Dx: [facility] en 300 09-17 t} tablet by [id number], eal th mg-codeine 00:00: 00:00 oral route M14.679, 60 mg 00 :00 every 8 E11.621, tablet hours as E11.40 needed Humalog 2020- No inject [facility] KwikPen 09-17- 5-10 Units ealth (U-100) 00:00: 00:00 by Insulin 100 00 :00 Subcutaneo unit/mL us route 3 subcutaneou times per s day on a medium sliding scale three times a day before meals metolazone 2020- No take 1 [facility] 5 mg tablet 09-17 tablet by ea lth 00:00: 00:00 oral route 00 :00 every day Januvia 50 2020- No 1{table Q1D take 1 [facility] mg tablet 09-17 t} tablet by ealt h 00:00: 00:00 oral route 00 :00 every day acetaminoph 2020- No 1{table Q8H take 1 Dx: [facility] en 300 09-17 t} tablet by [id number], eal th mg-codeine 00:00: 00:00 oral route M14.679, 60 mg 00 :00 every 8 E11.621, tablet hours as E11.40 needed Humalog 2020- No inject [facility] KwikPen 09-17- 5-10 Units ealth (U-100) 00:00: 00:00 by Insulin 100 00 :00 Subcutaneo unit/mL us route 3 subcutaneou times per s day on a medium sliding scale three times a day before meals metolazone 2020- No take 1 [facility] 5 mg tablet 09-17 tablet by ea lth 00:00: 00:00 oral route 00 :00 every day Januvia 50 2020- No 1{table Q1D take 1 [facility] mg tablet 09-17 t} tablet by ealt h 00:00: 00:00 oral route 00 :00 every day acetaminoph 2020- No 1{table Q8H take 1 Dx: [facility] en 300 09-17 t} tablet by [id number], eal th mg-codeine 00:00: 00:00 oral route M14.679, 60 mg 00 :00 every 8 E11.621, tablet hours as E11.40 needed Humalog 2020- No inject [facility] KwikPen 09-17 08-03 5-10 Units ealth (U-100) 00:00: 00:00 by Insulin 100 00 :00 Subcutaneo unit/mL us route 3 subcutaneou times per s day on a medium sliding scale three times a day before meals Humalog 2020- No inject [facility] KwikPen 09-17-03 5-10 Units ealth (U-100) 00:00: 00:00 by Insulin 100 00 :00 Subcutaneo unit/mL us route 3 subcutaneou times per s day on a medium sliding scale three times a day before meals metolazone 2020- No take 1 [facility] 5 mg tablet 09-17 tablet by ea lth 00:00: 00:00 oral route 00 :00 every day Januvia 50 2020- No 1{table Q1D take 1 [facility] mg tablet 09-17 t} tablet by ealt h 00:00: 00:00 oral route 00 :00 every day acetaminoph 2020- No 1{table Q8H take 1 Dx: [facility] en 300 09-17 t} tablet by [email or web address], eal th mg-codeine 00:00: 00:00 oral route M14.679, 60 mg 00 :00 every 8 E11.621, tablet hours as E11.40 needed metolazone 2020- No take 1 [facility] 5 mg tablet 09-17 tablet by ea lth 00:00: 00:00 oral route 00 :00 every day Januvia 50 2020- No 1{table Q1D take 1 [facility] mg tablet 09-17 t} tablet by ealt h 00:00: 00:00 oral route 00 :00 every day acetaminoph 2020- No 1{table Q8H take 1 Dx: [facility] en 300 09-17 t} tablet by [id number], eal th mg-codeine 00:00: 00:00 oral route M14.679, 60 mg 00 :00 every 8 E11.621, tablet hours as E11.40 needed Humalog 2020- No inject [facility] KwikPen 09-17- 5-10 Units ealth (U-100) 00:00: 00:00 by Insulin 100 00 :00 Subcutaneo unit/mL us route 3 subcutaneou times per s day on a medium sliding scale three times a day before meals metolazone 2020- No take 1 [facility] 5 mg tablet 09-17 tablet by ea lth 00:00: 00:00 oral route 00 :00 every day Januvia 50 2020- No 1{table Q1D take 1 [facility] mg tablet 09-17 t} tablet by ealt h 00:00: 00:00 oral route 00 :00 every day acetaminoph 2020- No 1{table Q8H take 1 Dx: [facility] en 300 09-17 t} tablet by [id number], eal th mg-codeine 00:00: 00:00 oral route M14.679, 60 mg 00 :00 every 8 E11.621, tablet hours as E11.40 needed Humalog 2020- No inject [facility] KwikPen 09-17- 5-10 Units ealth (U-100) 00:00: 00:00 by Insulin 100 00 :00 Subcutaneo unit/mL us route 3 subcutaneou times per s day on a medium sliding scale three times a day before meals lisinopril 2020- No 1{table Q1D take 1 [facility] 20 mg -17 10-25 t} tablet by ealth tablet 00:00: 00:00 oral route 00 :00 every day lisinopril 2020- No 1{table Q1D take 1 [facility] 20 mg 6- 07-25 t} tablet by ealth tablet 00:00: 00:00 oral route 00 :00 every day lisinopril 2020- No 1{table Q1D take 1 [facility] 20 mg - 07-25 t} tablet by ealth tablet 00:00: 00:00 oral route 00 :00 every day lisinopril 2021-0 2021- No 1{table Q1D take 1 [facility] 20 mg 6-22 07-25 t} tablet by ealth tablet 00:00: 00:00 oral route 00 :00 every day lisinopril 2021-0 2021- No 1{table Q1D take 1 [facility] 20 mg 6-22 07-25 t} tablet by ealth tablet 00:00: 00:00 oral route 00 :00 every day lisinopril 2021-0 2021- No 1{table Q1D take 1 [facility] 20 mg 6-22 07-25 t} tablet by ealth tablet 00:00: 00:00 oral route 00 :00 every day lisinopril 2021-0 2021- No 1{table Q1D take 1 [facility] 20 mg 6-22 07-25 t} tablet by ealth tablet 00:00: 00:00 oral route 00 :00 every day lisinopril 2021-0 2021- No 1{table Q1D take 1 [facility] 20 mg 6-22 07-25 t} tablet by ealth tablet 00:00: 00:00 oral route 00 :00 every day lisinopril 2021-0 2021- No 1{table Q1D take 1 [facility] 20 mg 6-22 07-25 t} tablet by ealth tablet 00:00: 00:00 oral route 00 :00 every day lisinopril 2021-0 2021- No 1{table Q1D take 1 [facility] 20 mg 6-22 07-25 t} tablet by ealth tablet 00:00: 00:00 oral route 00 :00 every day lisinopril 2021-0 2021- No 1{table Q1D take 1 [facility] 20 mg 6-22 07-25 t} tablet by ealth tablet 00:00: 00:00 oral route 00 :00 every day lisinopril 2021-0 2021- No 1{table Q1D take 1 [facility] 20 mg 6-22 07-25 t} tablet by ealth tablet 00:00: 00:00 oral route 00 :00 every day lisinopril 2021-0 2021- No 1{table Q1D take 1 [facility] 20 mg 6-22 07-25 t} tablet by ealth tablet 00:00: 00:00 oral route 00 :00 every day lisinopril 2021-0 2021- No 1{table Q1D take 1 [facility] 20 mg 6-22 07-25 t} tablet by ealth tablet 00:00: 00:00 oral route 00 :00 every day lisinopril 2021-0 2021- No 1{table Q1D take 1 [facility] 20 mg 6-22 07-25 t} tablet by ealth tablet 00:00: 00:00 oral route 00 :00 every day lisinopril 2021-0 2021- No 1{table Q1D take 1 [facility] 20 mg 6-22 07-25 t} tablet by ealth tablet 00:00: 00:00 oral route 00 :00 every day lisinopril 2021-0 2021- No 1{table Q1D take 1 [facility] 20 mg 6-22 07-25 t} tablet by ealth tablet 00:00: 00:00 oral route 00 :00 every day lisinopril 2021-0 2021- No 1{table Q1D take 1 [facility] 20 mg 6-22 07-25 t} tablet by ealth tablet 00:00: 00:00 oral route 00 :00 every day lisinopril 2021-0 2021- No 1{table Q1D take 1 [facility] 20 mg 6-22 07-25 t} tablet by ealth tablet 00:00: 00:00 oral route 00 :00 every day lisinopril 2021-0 2021- No 1{table Q1D take 1 [facility] 20 mg 6-22 07-25 t} tablet by ealth tablet 00:00: 00:00 oral route 00 :00 every day Januvia 100 2021-0 2021- No 1{table Q1D take 1 [facility] mg tablet 5-24 06-22 t} tablet by ealt h 00:00: 00:00 oral route 00 :00 every day Januvia 100 1-0 2021- No 1{table Q1D take 1 [facility] mg tablet 5-24 06-22 t} tablet by ealt h 00:00: 00:00 oral route 00 :00 every day Joseia 100 2020-0 2021- No 1{table Q1D take 1 [facility] mg tablet 5-24 06-22 t} tablet by ealt h 00:00: 00:00 oral route 00 :00 every day Joseia 100 2020-0 2021- No 1{table Q1D take 1 [facility] mg tablet 5-24 06-22 t} tablet by ealt h 00:00: 00:00 oral route 00 :00 every day Joseia 100 2020-0 2021- No 1{table Q1D take 1 [facility] mg tablet 5-24 06-22 t} tablet by ealt h 00:00: 00:00 oral route 00 :00 every day Joseia 100 2020-0 2021- No 1{table Q1D take 1 [facility] mg tablet 5-24 06-22 t} tablet by ealt h 00:00: 00:00 oral route 00 :00 every day Joseia 2020-0 2021- No 1{table Q1D take 1 [facility] mg tablet 5-24 06-22 t} tablet by ealt h 00:00: 00:00 oral route 00 :00 every day Joseia 100 2020-0 2021- No 1{table Q1D take 1 [facility] mg tablet 5-24 06-22 t} tablet by ealt h 00:00: 00:00 oral route 00 :00 every day Joseia 2020-0 2021- No 1{table Q1D take 1 [facility] mg tablet 5-24 06-22 t} tablet by ealt h 00:00: 00:00 oral route 00 :00 every day Joseia 100 2020-0 2021- No 1{table Q1D take 1 [facility] mg tablet 5-24 06-22 t} tablet by ealt h 00:00: 00:00 oral route 00 :00 every day Joseia 100 2020-0 2021- No 1{table Q1D take 1 [facility] mg tablet 5-24 06-22 t} tablet by ealt h 00:00: 00:00 oral route 00 :00 every day Joseia 100 2020-0 2021- No 1{table Q1D take 1 [facility] mg tablet 5-24 06-22 t} tablet by ealt h 00:00: 00:00 oral route 00 :00 every day Orionuvia 100 2020-0 2021- No 1{table Q1D take 1 [facility] mg tablet 5-24 06-22 t} tablet by ealt h 00:00: 00:00 oral route 00 :00 every day Orionuvia 100 2020-0 2021- No 1{table Q1D take 1 [facility] mg tablet 5-24 06-22 t} tablet by ealt h 00:00: 00:00 oral route 00 :00 every day Orionuvia 100 2020-0 2021- No 1{table Q1D take 1 [facility] mg tablet 5-24 06-22 t} tablet by ealt h 00:00: 00:00 oral route 00 :00 every day Orionuvia 100 2020-0 202- No 1{table Q1D take 1 [facility] mg tablet 5-24 06-22 t} tablet by ealt h 00:00: 00:00 oral route 00 :00 every day Orionuvia 100 2020-0 2021- No 1{table Q1D take 1 [facility] mg tablet 5-24 06-22 t} tablet by ealt h 00:00: 00:00 oral route 00 :00 every day Orionuvia 100 2020-0 2021- No 1{table Q1D take 1 [facility] mg tablet 5-24 06-22 t} tablet by ealt h 00:00: 00:00 oral route 00 :00 every day Orionuvia 100 2020-0 2021- No 1{table Q1D take 1 [facility] mg tablet 5-24 06-22 t} tablet by ealt h 00:00: 00:00 oral route 00 :00 every day Orionuvia 100 2020-0 2021- No 1{table Q1D take 1 [facility] mg tablet 5-24 06-22 t} tablet by ealt h 00:00: 00:00 oral route 00 :00 every day Santyl 250 2020-0 No Q1D apply by [facility] unit/gram 5-20 topical ealth topical 00:00: route ointment 00 every day to cleansed affected area Santyl 250 2020-0 No Q1D apply by [facility] unit/gram 5-20 topical ealth topical 00:00: route ointment 00 every day to cleansed affected area Santyl 250 0 No Q1D apply by [facility] unit/gram 5-20 topical ealth topical 00:00: route ointment 00 every day to cleansed affected area Santyl 250 0 No Q1D apply by [facility] unit/gram 5-20 topical ealth topical 00:00: route ointment 00 every day to cleansed affected area Santyl 250 0 No Q1D apply by [facility] unit/gram 5-20 topical ealth topical 00:00: route ointment 00 every day to cleansed affected area Santyl 250 0 No Q1D apply by [facility] unit/gram 5-20 topical ealth topical 00:00: route ointment 00 every day to cleansed affected area Santyl 250 0 No Q1D apply by [facility] unit/gram 5-20 topical ealth topical 00:00: route ointment 00 every day to cleansed affected area Santyl 250 0 No Q1D apply by [facility] unit/gram 5-20 topical ealth topical 00:00: route ointment 00 every day to cleansed affected area Santyl 250 0 No Q1D apply by [facility] unit/gram 5-20 topical ealth topical 00:00: route ointment 00 every day to cleansed affected area Santyl 250 0 No Q1D apply by [facility] unit/gram 5-20 topical ealth topical 00:00: route ointment 00 every day to cleansed affected area Santyl 250 0 No Q1D apply by [facility] unit/gram 5-20 topical ealth topical 00:00: route ointment 00 every day to cleansed affected area Santyl 250 0 No Q1D apply by [facility] unit/gram 5-20 topical ealth topical 00:00: route ointment 00 every day to cleansed affected area Santyl 250 0 No Q1D apply by [facility] unit/gram 5-20 topical ealth topical 00:00: route ointment 00 every day to cleansed affected area Santyl 250 0 No Q1D apply by [facility] unit/gram 5-20 topical ealth topical 00:00: route ointment 00 every day to cleansed affected area Santyl 250 2020-0 No Q1D apply by [facility] unit/gram 5-20 topical ealth topical 00:00: route ointment 00 every day to cleansed affected area Santyl 250 2020-0 No Q1D apply by [facility] unit/gram 5-20 topical ealth topical 00:00: route ointment 00 every day to cleansed affected area Santyl 250 2020-0 No Q1D apply by [facility] unit/gram 5-20 topical ealth topical 00:00: route ointment 00 every day to cleansed affected area Santyl 250 0 No Q1D apply by [facility] unit/gram 5-20 topical ealth topical 00:00: route ointment 00 every day to cleansed affected area Santyl 250 2020-0 No Q1D apply by [facility] unit/gram 5-20 topical ealth topical 00:00: route ointment 00 every day to cleansed affected area Santyl 250 0 No Q1D apply by [facility] unit/gram 5-20 topical ealth topical 00:00: route ointment 00 every day to cleansed affected area isosorbide 2020-2020- No take 1 [facility] mononitrate 5-20 - tablet (60 e alth ER 60 mg 00:00: 00:00 mg) by tablet,exte 00 :00 oral route nded once daily release 24 in the hr morning gabapentin 2020-2020- No 1{table Q8H take 1 [facility] 800 mg 5-20 - t} tablet by ealth tablet 00:00: 00:00 oral route 00 :00 3 times every day clopidogrel 2020-2020- No take 1 [facility] 75 mg 5-20 08- tablet (75 ealth tablet 00:00: 00:00 mg) by 00 :00 oral route once daily carvedilol 2020- No take 1 [facility] 25 mg 5-20 08- tablet (25 ealth tablet 00:00: 00:00 mg) by 00 :00 oral route 2 times per day with food bumetanide 2020- No take 1 [facility] 1 mg tablet 5-20 -03 tablet (1 ea lth 00:00: 00:00 mg) by 00 :00 oral route 2 times per day atorvastati 2020-2020- No take 1 [facility] n 80 mg 5-20 -03 tablet by ealth tablet 00:00: 00:00 Oral route 00 :00 1 time per day amlodipine 2020-2020- No take 1 [facility] 5 mg tablet 5-20 - tablet (5 ea lth 00:00: 00:00 mg) by 00 :00 oral route once daily isosorbide 2020-2020- No take 1 [facility] mononitrate 5-20 - tablet (60 e alth ER 60 mg 00:00: 00:00 mg) by tablet,exte 00 :00 oral route nded once daily release 24 in the hr morning gabapentin 2020-2020- No 1{table Q8H take 1 [facility] 800 mg 5-20 - t} tablet by ealth tablet 00:00: 00:00 oral route 00 :00 3 times every day clopidogrel 2020-2020- No take 1 [facility] 75 mg 5-20 - tablet (75 ealth tablet 00:00: 00:00 mg) by 00 :00 oral route once daily carvedilol 2020- No take 1 [facility] 25 mg 5-20 -03 tablet (25 ealth tablet 00:00: 00:00 mg) by 00 :00 oral route 2 times per day with food bumetanide 2020-2020- No take 1 [facility] 1 mg tablet 5-20 -03 tablet (1 ea lth 00:00: 00:00 mg) by 00 :00 oral route 2 times per day atorvastati 2020-2020- No take 1 [facility] n 80 mg 5-20 -03 tablet by ealth tablet 00:00: 00:00 Oral route 00 :00 1 time per day amlodipine 2020-2020- No take 1 [facility] 5 mg tablet 5-20 -03 tablet (5 ea lth 00:00: 00:00 mg) by 00 :00 oral route once daily isosorbide 2020-2020- No take 1 [facility] mononitrate 5-20 -03 tablet (60 e alth ER 60 mg 00:00: 00:00 mg) by tablet,exte 00 :00 oral route nded once daily release 24 in the hr morning gabapentin 2020- No 1{table Q8H take 1 [facility] 800 mg 5-20 - t} tablet by ealth tablet 00:00: 00:00 oral route 00 :00 3 times every day clopidogrel 2020-2020- No take 1 [facility] 75 mg 5-20 - tablet (75 e[facility] tablet 00:00: 00:00 mg) by 00 :00 oral route once daily carvedilol 2020- No take 1 [facility] 25 mg 5-20 - tablet (25 ealth tablet 00:00: 00:00 mg) by 00 :00 oral route 2 times per day with food bumetanide 2020- No take 1 [facility] 1 mg tablet -15 11- tablet (1 ea lth 00:00: 00:00 mg) by 00 :00 oral route 2 times per day atorvastati 2020-2020- No take 1 [facility] n 80 mg 5-20 -03 tablet by ealth tablet 00:00: 00:00 Oral route 00 :00 1 time per day amlodipine 2020-2020- No take 1 [facility] 5 mg tablet 5-20 -03 tablet (5 ea lth 00:00: 00:00 mg) by 00 :00 oral route once daily isosorbide 2020-2020- No take 1 [facility] mononitrate 5-20 -03 tablet (60 e alth ER 60 mg 00:00: 00:00 mg) by tablet,exte 00 :00 oral route nded once daily release 24 in the hr morning gabapentin 2020-2020- No 1{table Q8H take 1 [facility] 800 mg 5-20 -03 t} tablet by ealth tablet 00:00: 00:00 oral route 00 :00 3 times every day clopidogrel 2020-2020- No take 1 [facility] 75 mg 5-20 08-03 tablet (75 ealth tablet 00:00: 00:00 mg) by 00 :00 oral route once daily carvedilol 2020- No take 1 [facility] 25 mg 5-20 -03 tablet (25 e[facility] tablet 00:00: 00:00 mg) by 00 :00 oral route 2 times per day with food bumetanide 2020- No take 1 [facility] 1 mg tablet 5-20 - tablet (1 ea lth 00:00: 00:00 mg) by 00 :00 oral route 2 times per day atorvastati 2020-2020- No take 1 [facility] n 80 mg 5-20 - tablet by ealth tablet 00:00: 00:00 Oral route 00 :00 1 time per day amlodipine 2020-2020- No take 1 [facility] 5 mg tablet 5-20 - tablet (5 ea lth 00:00: 00:00 mg) by 00 :00 oral route once daily isosorbide 2020- No take 1 [facility] mononitrate 5-20 - tablet (60 e alth ER 60 mg 00:00: 00:00 mg) by tablet,exte 00 :00 oral route nded once daily release 24 in the hr morning gabapentin 2020-2020- No 1{table Q8H take 1 [facility] 800 mg 5-20 -03 t} tablet by ealth tablet 00:00: 00:00 oral route 00 :00 3 times every day clopidogrel 2020-2020- No take 1 [facility] 75 mg 5-20 -03 tablet (75 e[facility] tablet 00:00: 00:00 mg) by 00 :00 oral route once daily carvedilol 2020- No take 1 [facility] 25 mg 5-20 -03 tablet (25 ealth tablet 00:00: 00:00 mg) by 00 :00 oral route 2 times per day with food bumetanide 2020- No take 1 [facility] 1 mg tablet 5-20 -03 tablet (1 ea lth 00:00: 00:00 mg) by 00 :00 oral route 2 times per day atorvastati 2020-2020- No take 1 [facility] n 80 mg 5-20 -03 tablet by ealth tablet 00:00: 00:00 Oral route 00 :00 1 time per day amlodipine 2020-2020- No take 1 [facility] 5 mg tablet 5-20 -03 tablet (5 ea lth 00:00: 00:00 mg) by 00 :00 oral route once daily isosorbide 2020- No take 1 [facility] mononitrate 5-20 -03 tablet (60 e alth ER 60 mg 00:00: 00:00 mg) by tablet,exte 00 :00 oral route nded once daily release 24 in the hr morning gabapentin 2020-2020- No 1{table Q8H take 1 [facility] 800 mg 5-20 - t} tablet by [facility] tablet 00:00: 00:00 oral route 00 :00 3 times every day clopidogrel 2020-2020- No take 1 [facility] 75 mg 5-20 - tablet (75 [facility] tablet 00:00: 00:00 mg) by 00 :00 oral route once daily carvedilol 2020- No take 1 [facility] 25 mg 5-20 - tablet (25 [facility] tablet 00:00: 00:00 mg) by 00 :00 oral route 2 times per day with food bumetanide 2020- No take 1 [facility] 1 mg tablet 5-20 -03 tablet (1 e[facility] 00:00: 00:00 mg) by 00 :00 oral route 2 times per day atorvastati 2020-2020- No take 1 [facility] n 80 mg 5-20 -03 tablet by [facility] tablet 00:00: 00:00 Oral route 00 :00 1 time per day amlodipine 2020-2020- No take 1 [facility] 5 mg tablet 5-20 -03 tablet (5 e[facility] 00:00: 00:00 mg) by 00 :00 oral route once daily isosorbide 2020-2020- No take 1 [facility] mononitrate 5-20 -03 tablet (60 e alth ER 60 mg 00:00: 00:00 mg) by tablet,exte 00 :00 oral route nded once daily release 24 in the hr morning gabapentin 2020- No 1{table Q8H take 1 [facility] 800 mg 5-20 - t} tablet by [facility] tablet 00:00: 00:00 oral route 00 :00 3 times every day clopidogrel 2020-2020- No take 1 [facility] 75 mg 5-20 - tablet (75 [facility] tablet 00:00: 00:00 mg) by 00 :00 oral route once daily carvedilol 2020- No take 1 [facility] 25 mg 5-20 - tablet (25 [facility] tablet 00:00: 00:00 mg) by 00 :00 oral route 2 times per day with food bumetanide 2020- No take 1 [facility] 1 mg tablet -15 11- tablet (1 e[facility] 00:00: 00:00 mg) by 00 :00 oral route 2 times per day atorvastati 2020- No take 1 [facility] n 80 mg -15 11- tablet by [facility] tablet 00:00: 00:00 Oral route 00 :00 1 time per day amlodipine 2020- No take 1 [facility] 5 mg tablet -15 11- tablet (5 e[facility] 00:00: 00:00 mg) by 00 :00 oral route once daily isosorbide 2020- No take 1 [facility] mononitrate -20 - tablet (60 e al[facility] ER 60 mg 00:00: 00:00 mg) by tablet,exte 00 :00 oral route nded once daily release 24 in the hr morning gabapentin 2020- No 1{table Q8H take 1 [facility] 800 mg 5-20 - t} tablet by [facility] tablet 00:00: 00:00 oral route 00 :00 3 times every day clopidogrel 2020-2020- No take 1 [facility] 75 mg 5-20 -03 tablet (75 [facility] tablet 00:00: 00:00 mg) by 00 :00 oral route once daily carvedilol 2020- No take 1 [facility] 25 mg 5-20 -03 tablet (25 [facility] tablet 00:00: 00:00 mg) by 00 :00 oral route 2 times per day with food bumetanide 2020- No take 1 [facility] 1 mg tablet 5-20 -03 tablet (1 e[facility] 00:00: 00:00 mg) by 00 :00 oral route 2 times per day atorvastati 2020- No take 1 [facility] n 80 mg 5-20 - tablet by [facility] tablet 00:00: 00:00 Oral route 00 :00 1 time per day amlodipine 2020- No take 1 [facility] 5 mg tablet 5-20 - tablet (5 e[facility] 00:00: 00:00 mg) by 00 :00 oral route once daily isosorbide 2020- No take 1 [facility] mononitrate 5-20 - tablet (60 e al[facility] ER 60 mg 00:00: 00:00 mg) by tablet,exte 00 :00 oral route nded once daily release 24 in the hr morning gabapentin 2020-2020- No 1{table Q8H take 1 [facility] 800 mg 5-20 - t} tablet by [facility] tablet 00:00: 00:00 oral route 00 :00 3 times every day clopidogrel 2020-2020- No take 1 [facility] 75 mg 5-20 -03 tablet (75 [facility] tablet 00:00: 00:00 mg) by 00 :00 oral route once daily carvedilol 2020- No take 1 [facility] 25 mg 5-20 -03 tablet (25 [facility] tablet 00:00: 00:00 mg) by 00 :00 oral route 2 times per day with food bumetanide 2020- No take 1 [facility] 1 mg tablet 5-20 -03 tablet (1 e[facility] 00:00: 00:00 mg) by 00 :00 oral route 2 times per day atorvastati 2020- No take 1 [facility] n 80 mg 5-20 -03 tablet by [facility] tablet 00:00: 00:00 Oral route 00 :00 1 time per day amlodipine 2020-2020- No take 1 [facility] 5 mg tablet 08-15- tablet (5 e[facility] 00:00: 00:00 mg) by 00 :00 oral route once daily isosorbide 2020-2020- No take 1 [facility] mononitrate -20 - tablet (60 e al[facility] ER 60 mg 00:00: 00:00 mg) by tablet,exte 00 :00 oral route nded once daily release 24 in the hr morning gabapentin 2020-2020- No 1{table Q8H take 1 [facility] 800 mg 08-15- t} tablet by [facility] tablet 00:00: 00:00 oral route 00 :00 3 times every day clopidogrel 2020-2020- No take 1 [facility] 75 mg -15 11- tablet (75 [facility] tablet 00:00: 00:00 mg) by 00 :00 oral route once daily carvedilol 2020-2020- No take 1 [facility] 25 mg -15 11- tablet (25 [facility] tablet 00:00: 00:00 mg) by 00 :00 oral route 2 times per day with food bumetanide 2020-2020- No take 1 [facility] 1 mg tablet 08-15- tablet (1 e[facility] 00:00: 00:00 mg) by 00 :00 oral route 2 times per day atorvastati 2020-2020- No take 1 [facility] n 80 mg -15 11- tablet by [facility] tablet 00:00: 00:00 Oral route 00 :00 1 time per day amlodipine 2020-2020- No take 1 [facility] 5 mg tablet 08-15- tablet (5 e[facility] 00:00: 00:00 mg) by 00 :00 oral route once daily isosorbide 2020-2020- No take 1 [facility] mononitrate 5-20 - tablet (60 e al[facility] ER 60 mg 00:00: 00:00 mg) by tablet,exte 00 :00 oral route nded once daily release 24 in the hr morning gabapentin 2020-2020- No 1{table Q8H take 1 [facility] 800 mg 5-20 -03 t} tablet by [facility] tablet 00:00: 00:00 oral route 00 :00 3 times every day clopidogrel 2020-2020- No take 1 [facility] 75 mg 5-20 -03 tablet (75 [facility] tablet 00:00: 00:00 mg) by 00 :00 oral route once daily carvedilol 2020-2020- No take 1 [facility] 25 mg 5-20 -03 tablet (25 [facility] tablet 00:00: 00:00 mg) by 00 :00 oral route 2 times per day with food bumetanide 2020-2020- No take 1 [facility] 1 mg tablet 5-20 - tablet (1 e[facility] 00:00: 00:00 mg) by 00 :00 oral route 2 times per day atorvastati 2020-2020- No take 1 [facility] n 80 mg 5-20 - tablet by [facility] tablet 00:00: 00:00 Oral route 00 :00 1 time per day amlodipine 2020-2020- No take 1 [facility] 5 mg tablet 5-20 - tablet (5 e[facility] 00:00: 00:00 mg) by 00 :00 oral route once daily isosorbide 2020-2020- No take 1 [facility] mononitrate 5-20 - tablet (60 e al[facility] ER 60 mg 00:00: 00:00 mg) by tablet,exte 00 :00 oral route nded once daily release 24 in the hr morning gabapentin 2020-2020- No 1{table Q8H take 1 [facility] 800 mg 5-20 -03 t} tablet by [facility] tablet 00:00: 00:00 oral route 00 :00 3 times every day clopidogrel 2020-2020- No take 1 [facility] 75 mg 5-20 -03 tablet (75 [facility] tablet 00:00: 00:00 mg) by 00 :00 oral route once daily carvedilol 2020-2020- No take 1 [facility] 25 mg 5-20 -03 tablet (25 [facility] tablet 00:00: 00:00 mg) by 00 :00 oral route 2 times per day with food bumetanide 2020-2020- No take 1 [facility] 1 mg tablet 5-20 -03 tablet (1 e[facility] 00:00: 00:00 mg) by 00 :00 oral route 2 times per day atorvastati 2020-2020- No take 1 [facility] n 80 mg 5-20 - tablet by [facility] tablet 00:00: 00:00 Oral route 00 :00 1 time per day amlodipine 2020-2020- No take 1 [facility] 5 mg tablet 5-20 - tablet (5 e[facility] 00:00: 00:00 mg) by 00 :00 oral route once daily isosorbide 2020-2020- No take 1 [facility] mononitrate 5-20 - tablet (60 e al[facility] ER 60 mg 00:00: 00:00 mg) by tablet,exte 00 :00 oral route nded once daily release 24 in the hr morning gabapentin 2020-2020- No 1{table Q8H take 1 [facility] 800 mg 5-20 - t} tablet by [facility] tablet 00:00: 00:00 oral route 00 :00 3 times every day clopidogrel 2020-2020- No take 1 [facility] 75 mg 5-20 - tablet (75 [facility] tablet 00:00: 00:00 mg) by 00 :00 oral route once daily carvedilol 2020-2020- No take 1 [facility] 25 mg 5-20 - tablet (25 [facility] tablet 00:00: 00:00 mg) by 00 :00 oral route 2 times per day with food bumetanide 2020- No take 1 [facility] 1 mg tablet 5-20 -03 tablet (1 e[facility] 00:00: 00:00 mg) by 00 :00 oral route 2 times per day atorvastati 2020-2020- No take 1 [facility] n 80 mg 5-20 -03 tablet by [facility] tablet 00:00: 00:00 Oral route 00 :00 1 time per day amlodipine 2020-2020- No take 1 [facility] 5 mg tablet 5-20 -03 tablet (5 e[facility] 00:00: 00:00 mg) by 00 :00 oral route once daily isosorbide 2020-2020- No take 1 [facility] mononitrate 5-20 - tablet (60 e al[facility] ER 60 mg 00:00: 00:00 mg) by tablet,exte 00 :00 oral route nded once daily release 24 in the hr morning gabapentin 2020-2020- No 1{table Q8H take 1 [facility] 800 mg 5-20 - t} tablet by [facility] tablet 00:00: 00:00 oral route 00 :00 3 times every day clopidogrel 2020-2020- No take 1 [facility] 75 mg 5-20 - tablet (75 [facility] tablet 00:00: 00:00 mg) by 00 :00 oral route once daily carvedilol 2020-2020- No take 1 [facility] 25 mg 5-20 - tablet (25 [facility] tablet 00:00: 00:00 mg) by 00 :00 oral route 2 times per day with food bumetanide 2020-2020- No take 1 [facility] 1 mg tablet -15 11- tablet (1 e[facility] 00:00: 00:00 mg) by 00 :00 oral route 2 times per day atorvastati 2020-2020- No take 1 [facility] n 80 mg 5-20 - tablet by [facility] tablet 00:00: 00:00 Oral route 00 :00 1 time per day amlodipine 2020-2020- No take 1 [facility] 5 mg tablet -20 - tablet (5 e[facility] 00:00: 00:00 mg) by 00 :00 oral route once daily isosorbide 2020-2020- No take 1 [facility] mononitrate 5-20 -03 tablet (60 e al[facility] ER 60 mg 00:00: 00:00 mg) by tablet,exte 00 :00 oral route nded once daily release 24 in the hr morning gabapentin 2020-2020- No 1{table Q8H take 1 [facility] 800 mg 5-20 -03 t} tablet by [facility] tablet 00:00: 00:00 oral route 00 :00 3 times every day clopidogrel 2021-2020- No take 1 [facility] 75 mg 5-20 -03 tablet (75 [facility] tablet 00:00: 00:00 mg) by 00 :00 oral route once daily carvedilol 2020-2020- No take 1 [facility] 25 mg 5-20 -03 tablet (25 [facility] tablet 00:00: 00:00 mg) by 00 :00 oral route 2 times per day with food bumetanide 2020- No take 1 [facility] 1 mg tablet -20 - tablet (1 e[facility] 00:00: 00:00 mg) by 00 :00 oral route 2 times per day atorvastati 2020-2020- No take 1 [facility] n 80 mg 5-20 - tablet by [facility] tablet 00:00: 00:00 Oral route 00 :00 1 time per day amlodipine 2020-2020- No take 1 [facility] 5 mg tablet -20 - tablet (5 e[facility] 00:00: 00:00 mg) by 00 :00 oral route once daily isosorbide 2020-2020- No take 1 [facility] mononitrate 5-20 - tablet (60 e al[facility] ER 60 mg 00:00: 00:00 mg) by tablet,exte 00 :00 oral route nded once daily release 24 in the hr morning gabapentin 2020-2020- No 1{table Q8H take 1 [facility] 800 mg 5-20 - t} tablet by [facility] tablet 00:00: 00:00 oral route 00 :00 3 times every day clopidogrel 2020-2020- No take 1 [facility] 75 mg 5-20 -03 tablet (75 [facility] tablet 00:00: 00:00 mg) by 00 :00 oral route once daily carvedilol 2020-2020- No take 1 [facility] 25 mg 5-20 -03 tablet (25 [facility] tablet 00:00: 00:00 mg) by 00 :00 oral route 2 times per day with food bumetanide 2020-2020- No take 1 [facility] 1 mg tablet 5-20 -03 tablet (1 e[facility] 00:00: 00:00 mg) by 00 :00 oral route 2 times per day atorvastati 2020-2020- No take 1 [facility] n 80 mg 5-20 -03 tablet by [facility] tablet 00:00: 00:00 Oral route 00 :00 1 time per day amlodipine 2020-2020- No take 1 [facility] 5 mg tablet 5-20 -03 tablet (5 e[facility] 00:00: 00:00 mg) by 00 :00 oral route once daily isosorbide 2020-2020- No take 1 [facility] mononitrate 5-20 -03 tablet (60 e alth ER 60 mg 00:00: 00:00 mg) by tablet,exte 00 :00 oral route nded once daily release 24 in the hr morning gabapentin 2020-2020- No 1{table Q8H take 1 [facility] 800 mg 5-20 -03 t} tablet by [facility] tablet 00:00: 00:00 oral route 00 :00 3 times every day clopidogrel 2020-2020- No take 1 [facility] 75 mg 5-20 -03 tablet (75 [facility] tablet 00:00: 00:00 mg) by 00 :00 oral route once daily carvedilol 2020-2020- No take 1 [facility] 25 mg 5-20 -03 tablet (25 [facility] tablet 00:00: 00:00 mg) by 00 :00 oral route 2 times per day with food bumetanide 2020-2020- No take 1 [facility] 1 mg tablet 5-20 -03 tablet (1 e[facility] 00:00: 00:00 mg) by 00 :00 oral route 2 times per day atorvastati 2020-2020- No take 1 [facility] n 80 mg 5-20 -03 tablet by [facility] tablet 00:00: 00:00 Oral route 00 :00 1 time per day amlodipine 2020-2020- No take 1 [facility] 5 mg tablet 5-20 08-03 tablet (5 e[facility] 00:00: 00:00 mg) by 00 :00 oral route once daily isosorbide 2020-2020- No take 1 [facility] mononitrate 5-20 08-03 tablet (60 e alth ER 60 mg 00:00: 00:00 mg) by tablet,exte 00 :00 oral route nded once daily release 24 in the hr morning gabapentin 2020-2020- No 1{table Q8H take 1 [facility] 800 mg 5-20 - t} tablet by [facility] tablet 00:00: 00:00 oral route 00 :00 3 times every day clopidogrel 2020-2020- No take 1 [facility] 75 mg 5-20 -03 tablet (75 [facility] tablet 00:00: 00:00 mg) by 00 :00 oral route once daily carvedilol 2020-2020- No take 1 [facility] 25 mg 5-20 - tablet (25 [facility] tablet 00:00: 00:00 mg) by 00 :00 oral route 2 times per day with food bumetanide 2020-2020- No take 1 [facility] 1 mg tablet -20 - tablet (1 e[facility] 00:00: 00:00 mg) by 00 :00 oral route 2 times per day atorvastati 2020-2020- No take 1 [facility] n 80 mg 5-20 -03 tablet by [facility] tablet 00:00: 00:00 Oral route 00 :00 1 time per day amlodipine 2020-2020- No take 1 [facility] 5 mg tablet 5-20 -03 tablet (5 e[facility] 00:00: 00:00 mg) by 00 :00 oral route once daily isosorbide 2020- No take 1 [facility] mononitrate 5-20 -03 tablet (60 e al[facility] ER 60 mg 00:00: 00:00 mg) by tablet,exte 00 :00 oral route nded once daily release 24 in the hr morning gabapentin 2020-2020- No 1{table Q8H take 1 [facility] 800 mg 5-20 - t} tablet by [facility] tablet 00:00: 00:00 oral route 00 :00 3 times every day clopidogrel 2020-2020- No take 1 [facility] 75 mg 5-20 08-03 tablet (75 [facility] tablet 00:00: 00:00 mg) by 00 :00 oral route once daily carvedilol 2020-2020- No take 1 [facility] 25 mg 5-20 - tablet (25 [facility] tablet 00:00: 00:00 mg) by 00 :00 oral route 2 times per day with food bumetanide 2020- No take 1 [facility] 1 mg tablet -20 - tablet (1 ea [facility] 00:00: 00:00 mg) by 00 :00 oral route 2 times per day atorvastati 2020- No take 1 [facility] n 80 mg 5-20 - tablet by [facility] tablet 00:00: 00:00 Oral route 00 :00 1 time per day amlodipine 2020- No take 1 [facility] 5 mg tablet -20 - tablet (5 e[facility] 00:00: 00:00 mg) by 00 :00 oral route once daily isosorbide 2020-2020- No take 1 [facility] mononitrate 5-20 - tablet (60 e al[facility] ER 60 mg 00:00: 00:00 mg) by tablet,exte 00 :00 oral route nded once daily release 24 in the hr morning gabapentin 2020-2020- No 1{table Q8H take 1 [facility] 800 mg 5-20 - t} tablet by [facility] tablet 00:00: 00:00 oral route 00 :00 3 times every day clopidogrel 2020-2020- No take 1 [facility] 75 mg 5-20 - tablet (75 [facility] tablet 00:00: 00:00 mg) by 00 :00 oral route once daily carvedilol 2020- No take 1 [facility] 25 mg 5-20 - tablet (25 [facility] tablet 00:00: 00:00 mg) by 00 :00 oral route 2 times per day with food bumetanide 2020- No take 1 [facility] 1 mg tablet 5-20 - tablet (1 e[facility] 00:00: 00:00 mg) by 00 :00 oral route 2 times per day atorvastati 2020-2020- No take 1 [facility] n 80 mg 5-20 - tablet by [facility] tablet 00:00: 00:00 Oral route 00 :00 1 time per day amlodipine 2020-2020- No take 1 [facility] 5 mg tablet 5-20 - tablet (5 e[facility] 00:00: 00:00 mg) by 00 :00 oral route once daily Levemir 2020-2020- No 100U Q1D inject 100 [facility] FlexTouch 5-20 -22 unit by [facility] [email or web address]-100 00:00: 00:00 subcutaneo Insulin 100 00 :00 us route unit/mL (3 every day mL) subcutaneou s pen metolazone 2020- No 1{table Q2D take 1 [facility] 5 mg tablet 5-20 - t} tablet by lt 00:00: 00:00 oral route 00 :00 every 2 days lisinopril 2020-2020- No 1{table Q1D take 1 [facility] 20 mg 5-20 -22 t} tablet by [facility]alt tablet 00:00: 00:00 oral route 00 :00 every day Levemir 2020-0 2020- No 100U Q1D inject 100 [facility] FlexTouch 5-20 -22 unit by [facility] [email or web address]-100 00:00: 00:00 subcutaneo Insulin 100 00 :00 us route unit/mL (3 every day mL) subcutaneou s pen metolazone 2020-2020- No 1{table Q2D take 1 [facility] 5 mg tablet 5-20 -22 t} tablet by lt 00:00: 00:00 oral route 00 :00 every 2 days lisinopril 2020-0 2020- No 1{table Q1D take 1 [facility] 20 mg 5-20 -22 t} tablet by [facility] tablet 00:00: 00:00 oral route 00 :00 every day Levemir 2020-0 2020- No 100U Q1D inject 100 [facility] FlexTouch 5-20 -22 unit by [facility] U-100 00:00: 00:00 subcutaneo Insulin 100 00 :00 us route unit/mL (3 every day mL) subcutaneou s pen metolazone 2020-2020- No 1{table Q2D take 1 [facility] 5 mg tablet 5-20 06-22 t} tablet by ea lth 00:00: 00:00 oral route 00 :00 every 2 days lisinopril 2020-0 202- No 1{table Q1D take 1 [facility] 20 mg 5-20 06-22 t} tablet by [facility] tablet 00:00: 00:00 oral route 00 :00 every day Levemir 2020-0 2020- No 100U Q1D inject 100 [facility] FlexTouch 5-20 06-22 unit by [facility] U-100 00:00: 00:00 subcutaneo Insulin 100 00 :00 us route unit/mL (3 every day mL) subcutaneou s pen metolazone 2020-2020- No 1{table Q2D take 1 [facility] 5 mg tablet 5-20 06-22 t} tablet by ea l[facility] 00:00: 00:00 oral route 00 :00 every 2 days lisinopril 2020-0 2020- No 1{table Q1D take 1 [facility] 20 mg 5-20 06-22 t} tablet by [facility] tablet 00:00: 00:00 oral route 00 :00 every day Levemir 2020-0 1- No 100U Q1D inject 100 [facility] FlexTouch 5-20 06-22 unit by e[facility] [email or web address]-100 00:00: 00:00 subcutaneo Insulin 100 00 :00 us route unit/mL (3 every day mL) subcutaneou s pen metolazone 2020-2020- No 1{table Q2D take 1 [facility] 5 mg tablet 5-20 06-22 t} tablet by ea l[facility] 00:00: 00:00 oral route 00 :00 every 2 days lisinopril 2020-0 2020- No 1{table Q1D take 1 [facility] 20 mg 5-20 06-22 t} tablet by [facility] tablet 00:00: 00:00 oral route 00 :00 every day Levemir 2020-0 1- No 100U Q1D inject 100 [facility] FlexTouch 5-20 06-22 unit by [facility] [email or web address]-100 00:00: 00:00 subcutaneo Insulin 100 00 :00 us route unit/mL (3 every day mL) subcutaneou s pen metolazone 2020-0 1- No 1{table Q2D take 1 [facility] 5 mg tablet 5-20 06-22 t} tablet by ea lt 00:00: 00:00 oral route 00 :00 every 2 days lisinopril 2020-0 2021- No 1{table Q1D take 1 [facility] 20 mg 5-20 06-22 t} tablet by [facility]alth tablet 00:00: 00:00 oral route 00 :00 every day Levemir 2020-0 2020- No 100U Q1D inject 100 [facility] FlexTouch 5-20 06-22 unit by [facility] U-100 00:00: 00:00 subcutaneo Insulin 100 00 :00 us route unit/mL (3 every day mL) subcutaneou s pen metolazone 2020-1- No 1{table Q2D take 1 [facility] 5 mg tablet 5-20 06-22 t} tablet by lt 00:00: 00:00 oral route 00 :00 every 2 days lisinopril 2020-0 2021- No 1{table Q1D take 1 [facility] 20 mg 5-20 06-22 t} tablet by [facility]alth tablet 00:00: 00:00 oral route 00 :00 every day Levemir 2020-0 2021- No 100U Q1D inject 100 [facility] FlexTouch 5-20 06-22 unit by e[facility] [email or web address]-100 00:00: 00:00 subcutaneo Insulin 100 00 :00 us route unit/mL (3 every day mL) subcutaneou s pen metolazone 2020-0 2021- No 1{table Q2D take 1 [facility] 5 mg tablet 5-20 06-22 t} tablet by ea lt 00:00: 00:00 oral route 00 :00 every 2 days lisinopril 2020-0 2021- No 1{table Q1D take 1 [facility] 20 mg 5-20 06-22 t} tablet by ealth tablet 00:00: 00:00 oral route 00 :00 every day Levemir 2020-0 2021- No 100U Q1D inject 100 [facility] FlexTouch 5-20 06-22 unit by [facility] U-100 00:00: 00:00 subcutaneo Insulin 100 00 :00 us route unit/mL (3 every day mL) subcutaneou s pen metolazone 2020-1- No 1{table Q2D take 1 [facility] 5 mg tablet 5-20 06-22 t} tablet by ea l[facility] 00:00: 00:00 oral route 00 :00 every 2 days lisinopril 2020-0 202- No 1{table Q1D take 1 [facility] 20 mg 5-20 06-22 t} tablet by [facility] tablet 00:00: 00:00 oral route 00 :00 every day Levemir 2020-0 2020- No 100U Q1D inject 100 [facility] FlexTouch 5-20 06-22 unit by [facility] U-100 00:00: 00:00 subcutaneo Insulin 100 00 :00 us route unit/mL (3 every day mL) subcutaneou s pen metolazone 2020-2020- No 1{table Q2D take 1 [facility] 5 mg tablet 5-20 06-22 t} tablet by lt 00:00: 00:00 oral route 00 :00 every 2 days lisinopril 2020-0 2021- No 1{table Q1D take 1 [facility] 20 mg 5-20 06-22 t} tablet by [facility] tablet 00:00: 00:00 oral route 00 :00 every day Levemir 2020-0 1- No 100U Q1D inject 100 [facility] FlexTouch 5-20 06-22 unit by [facility] U-100 00:00: 00:00 subcutaneo Insulin 100 00 :00 us route unit/mL (3 every day mL) subcutaneou s pen metolazone 2020-2020- No 1{table Q2D take 1 [facility] 5 mg tablet 5-20 06-22 t} tablet by ea lt 00:00: 00:00 oral route 00 :00 every 2 days lisinopril 2020-0 2020- No 1{table Q1D take 1 [facility] 20 mg 5-20 06-22 t} tablet by [facility] tablet 00:00: 00:00 oral route 00 :00 every day Levemir 2020-0 2020- No 100U Q1D inject 100 [facility] FlexTouch 5-20 06-22 unit by [facility] [email or web address]-100 00:00: 00:00 subcutaneo Insulin 100 00 :00 us route unit/mL (3 every day mL) subcutaneou s pen metolazone 2020-1- No 1{table Q2D take 1 [facility] 5 mg tablet 5-20 06-22 t} tablet by ea lth 00:00: 00:00 oral route 00 :00 every 2 days lisinopril 2020-0 2020- No 1{table Q1D take 1 [facility] 20 mg 5-20 06-22 t} tablet by [facility] tablet 00:00: 00:00 oral route 00 :00 every day Levemir 2020-0 1- No 100U Q1D inject 100 [facility] FlexTouch 5-20 06-22 unit by [facility] [email or web address]-100 00:00: 00:00 subcutaneo Insulin 100 00 :00 us route unit/mL (3 every day mL) subcutaneou s pen metolazone 2020-2020- No 1{table Q2D take 1 [facility] 5 mg tablet 5-20 06-22 t} tablet by ea l[facility] 00:00: 00:00 oral route 00 :00 every 2 days lisinopril 2020-0 1- No 1{table Q1D take 1 [facility] 20 mg 5-20 06-22 t} tablet by [facility] tablet 00:00: 00:00 oral route 00 :00 every day lisinopril 2020-0 2021- No 1{table Q1D take 1 [facility] 20 mg 5-20 06-22 t} tablet by [facility] tablet 00:00: 00:00 oral route 00 :00 every day Levemir 2020-0 1- No 100U Q1D inject 100 [facility] FlexTouch 5-20 06-22 unit by [facility] [email or web address]-100 00:00: 00:00 subcutaneo Insulin 100 00 :00 us route unit/mL (3 every day mL) subcutaneou s pen metolazone 2021-0 2021- No 1{table Q2D take 1 [facility] 5 mg tablet 5-20 06-22 t} tablet by ea lt 00:00: 00:00 oral route 00 :00 every 2 days Levemir 2020-2020- No 100U Q1D inject 100 [facility] FlexTouch 5-20 06-22 unit by [facility] U-100 00:00: 00:00 subcutaneo Insulin 100 00 :00 us route unit/mL (3 every day mL) subcutaneou s pen metolazone 2020- No 1{table Q2D take 1 [facility] 5 mg tablet 5-20 06-22 t} tablet by lt 00:00: 00:00 oral route 00 :00 every 2 days lisinopril 2020-2020- No 1{table Q1D take 1 [facility] 20 mg 5-20 06-22 t} tablet by [facility] tablet 00:00: 00:00 oral route 00 :00 every day Levemir 2020-2020- No 100U Q1D inject 100 [facility] FlexTouch 5-20 06-22 unit by [facility] [email or web address]-100 00:00: 00:00 subcutaneo Insulin 100 00 :00 us route unit/mL (3 every day mL) subcutaneou s pen metolazone 2020-2020- No 1{table Q2D take 1 A [facility] 5 mg tablet 5-20 06-22 t} tablet by lt 00:00: 00:00 oral route 00 :00 every 2 days lisinopril 2020-2020- No 1{table Q1D take 1 [facility] 20 mg 5-20 06-22 t} tablet by [facility] tablet 00:00: 00:00 oral route 00 :00 every day Levemir 2020-2020- No 100U Q1D inject 100 [facility] FlexTouch 5-20 06-22 unit by [facility] [email or web address]-100 00:00: 00:00 subcutaneo Insulin 100 00 :00 us route unit/mL (3 every day mL) subcutaneou s pen metolazone 2020- No 1{table Q2D take 1 [facility] 5 mg tablet 5-20 06-22 t} tablet by lt 00:00: 00:00 oral route 00 :00 every 2 days lisinopril 2020-0 2020- No 1{table Q1D take 1 A [facility] 20 mg 5-20 06-22 t} tablet by [facility] tablet 00:00: 00:00 oral route 00 :00 every day Levemir 2020-0 1- No 100U Q1D inject 100 [facility] FlexTouch 5-20 06-22 unit by [facility] U-100 00:00: 00:00 subcutaneo Insulin 100 00 :00 us route unit/mL (3 every day mL) subcutaneou s pen metolazone 2020- No 1{table Q2D take 1 [facility] 5 mg tablet 5-20 06-22 t[facility]: [facility]:00 oral route 00 :00 every 2 days lisinopril 2020-0 2020- No 1{table Q1D take 1 A [facility] 20 mg 5-20 06-22 t} tablet by [facility] tablet 00:00: 00:00 oral route 00 :00 every day Levemir 2020-0 1- No 100U Q1D inject 100 Acc [facility] FlexTouch 5-20 06-22 unit by [facility] U-[email or web address] 00:00: 00:00 subcutaneo Insulin 100 00 :00 us route unit/mL (3 every day mL) subcutaneou s pen metolazone 2020-2020- No 1{table Q2D take 1 A ccessH 5 mg tablet 5-20 06-22 t} [facility]:00 oral route 00 :00 every 2 days lisinopril 2020-0 2020- No 1{table Q1D take 1 A ccessH 20 mg 5-20 06-22 t} tablet by [facility] tablet 00:00: 00:00 oral route 00 :00 every day Levemir 2020-0 1- No 100U Q1D inject 100 Acc [facility] FlexTouch 5-20 06-22 unit by [facility] U-[email or web address] 00:00: 00:00 subcutaneo Insulin 100 00 :00 us route unit/mL (3 every day mL) subcutaneou s pen metolazone 2020- No 1{table Q2D take 1 A ccessH 5 mg tablet 5-20 -22 t} tablet by [facility] 00:00: 00:00 oral route 00 :00 every 2 days lisinopril 2020- No 1{table Q1D take 1 A ccessH 20 mg 5-20 06-22 t} tablet by [facility] tablet 00:00: 00:00 oral route 00 :00 every day Levemir 2020- No inject 50 [facility] FlexTouch 5-20 05-20 Units by [facility] U-100 00:00: 00:00 Subcutaneo Insulin 100 00 :00 us route 2 unit/mL (3 times per mL) day in the subcutaneou morning s pen and evening Levemir 2020- No inject 50 [facility] ssH FlexTouch 5-20 05-20 Units by ealt U-100 00:00: 00:00 Subcutaneo Insulin 100 00 :00 us route 2 unit/mL (3 times per mL) day in the subcutaneou morning s pen and evening Levemir 2020- No inject 50 Ac[facility] ssH FlexTouch 5-20 05-20 Units by ealth U-100 00:00: 00:00 Subcutaneo Insulin 100 00 :00 us route 2 unit/mL (3 times per mL) day in the subcutaneou morning s pen and evening Levemir 2020- No inject 50 Acce ssH FlexTouch 5-20 05-20 Units by ealth U-100 00:00: 00:00 Subcutaneo Insulin 100 00 :00 us route 2 unit/mL (3 times per mL) day in the subcutaneou morning s pen and evening Levemir 2020- No inject 50 Ac[facility] ssH FlexTouch 5-20 05-20 Units by ealth U-100 00:00: 00:00 Subcutaneo Insulin 100 00 :00 us route 2 unit/mL (3 times per mL) day in the subcutaneou morning s pen and evening Levemir 2020- No inject 50 Ac[facility] ssH FlexTouch 5-20 05-20 Units by ealth U-100 00:00: 00:00 Subcutaneo Insulin 100 00 :00 us route 2 unit/mL (3 times per mL) day in the subcutaneou morning s pen and evening Levemir 2020- No inject 50 Acce ssH FlexTouch 5-20 05-20 Units by ealth U-100 00:00: 00:00 Subcutaneo Insulin 100 00 :00 us route 2 unit/mL (3 times per mL) day in the subcutaneou morning s pen and evening Levemir 2020- No inject 50 Ac[facility] ssH FlexTouch 5-20 05-20 Units by ealth U-100 00:00: 00:00 Subcutaneo Insulin 100 00 :00 us route 2 unit/mL (3 times per mL) day in the subcutaneou morning s pen and evening Levemir 2020- No inject 50 [facility] ssH FlexTouch 5-20 05-20 Units by ealth U-100 00:00: 00:00 Subcutaneo Insulin 100 00 :00 us route 2 unit/mL (3 times per mL) day in the subcutaneou morning s pen and evening Levemir 2020- No inject 50 Ac[facility] ssH FlexTouch 5-20 05-20 Units by ealth U-100 00:00: 00:00 Subcutaneo Insulin 100 00 :00 us route 2 unit/mL (3 times per mL) day in the subcutaneou morning s pen and evening Levemir 2020- No inject 50 Ac[facility] ssH FlexTouch 5-20 05-20 Units by ealth U-100 00:00: 00:00 Subcutaneo Insulin 100 00 :00 us route 2 unit/mL (3 times per mL) day in the subcutaneou morning s pen and evening Levemir 2020- No inject 50 Ac[facility] ssH FlexTouch 5-20 05-20 Units by ealth U-100 00:00: 00:00 Subcutaneo Insulin 100 00 :00 us route 2 unit/mL (3 times per mL) day in the subcutaneou morning s pen and evening Levemir 2020- No inject 50 Ac[facility] ssH FlexTouch 5-20 05-20 Units by ealth U-100 00:00: 00:00 Subcutaneo Insulin 100 00 :00 us route 2 unit/mL (3 times per mL) day in the subcutaneou morning s pen and evening Levemir 2020- No inject 50 Ac[facility] ssH FlexTouch 5-20 05-20 Units by ealth U-100 00:00: 00:00 Subcutaneo Insulin 100 00 :00 us route 2 unit/mL (3 times per mL) day in the subcutaneou morning s pen and evening Levemir 2020- No inject 50 [facility] ssH FlexTouch 5-20 05-20 Units by ealth U-100 00:00: 00:00 Subcutaneo Insulin 100 00 :00 us route 2 unit/mL (3 times per mL) day in the subcutaneou morning s pen and evening Levemir 2020- No inject 50 Ac[facility] ssH FlexTouch 5-20 05-20 Units by ealth U-100 00:00: 00:00 Subcutaneo Insulin 100 00 :00 us route 2 unit/mL (3 times per mL) day in the subcutaneou morning s pen and evening Levemir 2020- No inject 50 [facility] ssH FlexTouch 5-20 05-20 Units by ealth U-100 00:00: 00:00 Subcutaneo Insulin 100 00 :00 us route 2 unit/mL (3 times per mL) day in the subcutaneou morning s pen and evening Levemir 2020- No inject 50 [facility] ssH FlexTouch 5-20 05-20 Units by ealth U-100 00:00: 00:00 Subcutaneo Insulin 100 00 :00 us route 2 unit/mL (3 times per mL) day in the subcutaneou morning s pen and evening Levemir 2020- No inject 50 [facility] ssH FlexTouch 5-20 05-20 Units by ealth U-100 00:00: 00:00 Subcutaneo Insulin 100 00 :00 us route 2 unit/mL (3 times per mL) day in the subcutaneou morning s pen and evening Levemir 2020- No inject 50 [facility] ssH FlexTouch 5-20 05-20 Units by ealth U-100 00:00: 00:00 Subcutaneo Insulin 100 00 :00 us route 2 unit/mL (3 times per mL) day in the subcutaneou morning s pen and evening Levemir 2020- No inject 50 [facility] ssH FlexTouch 5-20 05-20 Units by ealth U-100 00:00: 00:00 Subcutaneo Insulin 100 00 :00 us route 2 unit/mL (3 times per mL) day in the subcutaneou morning s pen and evening Levemir 2020- No inject 50 [facility] ssH FlexTouch 5-20 05-20 Units by ealth U-100 00:00: 00:00 Subcutaneo Insulin 100 00 :00 us route 2 unit/mL (3 times per mL) day in the subcutaneou morning s pen and evening Levemir 2020- No inject 50 [facility] ssH FlexTouch 5-20 05-20 Units by ealth U-100 00:00: 00:00 Subcutaneo Insulin 100 00 :00 us route 2 unit/mL (3 times per mL) day in the subcutaneou morning s pen and evening Levemir 2020- No inject 50 [facility] ssH FlexTouch 5-20 05-20 Units by ealth U-100 00:00: 00:00 Subcutaneo Insulin 100 00 :00 us route 2 unit/mL (3 times per mL) day in the subcutaneou morning s pen and evening Levemir 2020- No inject 50 [facility] ssH FlexTouch 5-20 05-20 Units by ealth U-100 00:00: 00:00 Subcutaneo Insulin 100 00 :00 us route 2 unit/mL (3 times per mL) day in the subcutaneou morning s pen and evening Levemir 2020- No inject 50 [facility] ss[facility] FlexTouch 5-20 05-20 Units by ealth U-100 00:00: 00:00 Subcutaneo Insulin 100 00 :00 us route 2 unit/mL (3 times per mL) day in the subcutaneou morning s pen and evening Levemir 2020- No inject 50 [facility] ss[facility] FlexTouch 5-20 05-20 Units by ealth U-100 00:00: 00:00 Subcutaneo Insulin 100 00 :00 us route 2 unit/mL (3 times per mL) day in the subcutaneou morning s pen and evening Levemir 2020- No inject 50 [facility] ss[facility] FlexTouch 5-20 05-20 Units by ealth U-100 00:00: 00:00 Subcutaneo Insulin 100 00 :00 us route 2 unit/mL (3 times per mL) day in the subcutaneou morning s pen and evening Levemir 2020- No inject 50 [facility] ssH FlexTouch 5-20 05-20 Units by ealth U-100 00:00: 00:00 Subcutaneo Insulin 100 00 :00 us route 2 unit/mL (3 times per mL) day in the subcutaneou morning s pen and evening Levemir 2020- No inject 50 [facility] ssH FlexTouch 5-20 05-20 Units by ealth U-100 00:00: 00:00 Subcutaneo Insulin 100 00 :00 us route 2 unit/mL (3 times per mL) day in the subcutaneou morning s pen and evening Levemir 2020- No inject 50 [facility] ss[facility] FlexTouch 5-20 05-20 Units by ealth U-100 00:00: 00:00 Subcutaneo Insulin 100 00 :00 us route 2 unit/mL (3 times per mL) day in the subcutaneou morning s pen and evening Levemir 2020- No inject 50 [facility] ss[facility] FlexTouch 5-20 05-20 Units by ealth U-100 00:00: 00:00 Subcutaneo Insulin 100 00 :00 us route 2 unit/mL (3 times per mL) day in the subcutaneou morning s pen and evening Levemir 2020- No inject 50 [facility] ss[facility] FlexTouch 5-20 05-20 Units by ealth U-100 00:00: 00:00 Subcutaneo Insulin 100 00 :00 us route 2 unit/mL (3 times per mL) day in the subcutaneou morning s pen and evening Levemir 2020- No inject 50 [facility] ss[facility] FlexTouch 5-20 05-20 Units by ealth U-100 00:00: 00:00 Subcutaneo Insulin 100 00 :00 us route 2 unit/mL (3 times per mL) day in the subcutaneou morning s pen and evening Levemir 2020- No inject 50 [facility] ssH FlexTouch 5-20 05-20 Units by ealth U-100 00:00: 00:00 Subcutaneo Insulin 100 00 :00 us route 2 unit/mL (3 times per mL) day in the subcutaneou morning s pen and evening Levemir 2020- No inject 50 [facility] ss[facility] FlexTouch 5-20 05-20 Units by ealth U-100 00:00: 00:00 Subcutaneo Insulin 100 00 :00 us route 2 unit/mL (3 times per mL) day in the subcutaneou morning s pen and evening Levemir 2020- No inject 50 [facility] ss[facility] FlexTouch 5-20 05-20 Units by ealth U-100 00:00: 00:00 Subcutaneo Insulin 100 00 :00 us route 2 unit/mL (3 times per mL) day in the subcutaneou morning s pen and evening Levemir 2020- No inject 50 [facility] ss[facility] FlexTouch 5-20 05-20 Units by ealth U-100 00:00: 00:00 Subcutaneo Insulin 100 00 :00 us route 2 unit/mL (3 times per mL) day in the subcutaneou morning s pen and evening Levemir 2020- No inject 50 [facility] ss[facility] FlexTouch 5-20 05-20 Units by ealth U-100 00:00: 00:00 Subcutaneo Insulin 100 00 :00 us route 2 unit/mL (3 times per mL) day in the subcutaneou morning s pen and evening Levemir 2020- No inject 50 [facility] ss[facility] FlexTouch 5-20 05-20 Units by ealth U-100 00:00: 00:00 Subcutaneo Insulin 100 00 :00 us route 2 unit/mL (3 times per mL) day in the subcutaneou morning s pen and evening gabapentin 2020- No 1{table Q8H take 1 A ccessH 800 mg 07-04 05-20 t} tablet by ealth tablet 00:00: 00:00 oral route 00 :00 3 times every day carvedilol 2020- No take 1 [facility] ss[facility] 25 mg 07-04 05-20 tablet (25 ealth tablet 00:00: 00:00 mg) by 00 :00 oral route 2 times per day with food clopidogrel 2020- No take 1 Acc essH 75 mg 07-04 05-20 tablet (75 ealth tablet 00:00: 00:00 mg) by 00 :00 oral route once daily atorvastati 2020- No take 1 [facility] ess[facility] n 80 mg 07-04 05-20 tablet by ealth tablet 00:00: 00:00 Oral route 00 :00 1 time per day amlodipine 2020- No take 1 [facility] ss[facility] 5 mg tablet 07-04 05-20 tablet (5 ea lth 00:00: 00:00 mg) by 00 :00 oral route once daily isosorbide 2020- No take 1 [facility] mononitrate 07-04 05-20 tablet (60 e alth ER 60 mg 00:00: 00:00 mg) by tablet,exte 00 :00 oral route nded once daily release 24 in the hr morning Humalog 2020- No inject [facility] KwikPen - 05-20 5-10 Units ealth (U-100) 00:00: 00:00 by Insulin 100 00 :00 Subcutaneo unit/mL us route 3 subcutaneou times per s day on a sliding scale three times a day before meals Levemir 2020- No inject 50 [facility] ss[facility] FlexTouch 4-08 05-20 Units by ealth U-100 00:00: 00:00 Subcutaneo Insulin 100 00 :00 us route 2 unit/mL (3 times per mL) day in the subcutaneou morning s pen and evening metolazone 2020- No 1{table Q2D take 1 A ccessH 2.5 mg 07-04 05-20 t} tablet by ealth tablet 00:00: 00:00 oral route 00 :00 every 2 days gabapentin 2020- No 1{table Q8H take 1 A ccessH 800 mg 07-04 05-20 t} tablet by ealth tablet 00:00: 00:00 oral route 00 :00 3 times every day carvedilol 2020- No take 1 [facility] ss[facility] 25 mg 07-04 05-20 tablet (25 ealth tablet 00:00: 00:00 mg) by 00 :00 oral route 2 times per day with food clopidogrel 2020- No take 1 Acc essH 75 mg 07-04-20 tablet (75 ealth tablet 00:00: 00:00 mg) by 00 :00 oral route once daily atorvastati 2020- No take 1 Acc essH n 80 mg 07-04 05-20 tablet by ealth tablet 00:00: 00:00 Oral route 00 :00 1 time per day amlodipine 2020- No take 1 [facility] ss[facility] 5 mg tablet 07-04-20 tablet (5 ea lth 00:00: 00:00 mg) by 00 :00 oral route once daily isosorbide 2020- No take 1 [facility] ssH mononitrate 07-04 05-20 tablet (60 e alth ER 60 mg 00:00: 00:00 mg) by tablet,exte 00 :00 oral route nded once daily release 24 in the hr morning Humalog 2020- No inject [facility] KwikPen 07-04 05-20 5-10 Units ealth (U-100) 00:00: 00:00 by Insulin 100 00 :00 Subcutaneo unit/mL us route 3 subcutaneou times per s day on a sliding scale three times a day before meals Levemir 2020- No inject 50 [facility] ss[facility] FlexTouch 4-08 05-20 Units by ealth U-100 00:00: 00:00 Subcutaneo Insulin 100 00 :00 us route 2 unit/mL (3 times per mL) day in the subcutaneou morning s pen and evening metolazone 2020- No 1{table Q2D take 1 A ccessH 2.5 mg 4- 05-20 t} tablet by ealth tablet 00:00: 00:00 oral route 00 :00 every 2 days gabapentin 2020- No 1{table Q8H take 1 A ccessH 800 mg 4- 05-20 t} tablet by ealth tablet 00:00: 00:00 oral route 00 :00 3 times every day carvedilol 2020- No take 1 [facility] ss[facility] 25 mg - 05-20 tablet (25 ealth tablet 00:00: 00:00 mg) by 00 :00 oral route 2 times per day with food clopidogrel 2020- No take 1 Acc essH 75 mg 07-04 05-20 tablet (75 ealth tablet 00:00: 00:00 mg) by 00 :00 oral route once daily atorvastati 2020- No take 1 [facility] ess[facility] n 80 mg 07-04 05-20 tablet by ealth tablet 00:00: 00:00 Oral route 00 :00 1 time per day amlodipine 2020- No take 1 [facility] 5 mg tablet 07-04 05-20 tablet (5 ea lth 00:00: 00:00 mg) by 00 :00 oral route once daily isosorbide 2020- No take 1 [facility] ss[facility] mononitrate 07-04 05-20 tablet (60 e alth ER 60 mg 00:00: 00:00 mg) by tablet,exte 00 :00 oral route nded once daily release 24 in the hr morning Humalog 2020- No inject [facility] KwikPen - 05-20 5-10 Units ealth (U-100) 00:00: 00:00 by Insulin 100 00 :00 Subcutaneo unit/mL us route 3 subcutaneou times per s day on a sliding scale three times a day before meals Levemir 2020- No inject 50 [facility] ss[facility] FlexTouch 4-08 05-20 Units by ealth U-100 00:00: 00:00 Subcutaneo Insulin 100 00 :00 us route 2 unit/mL (3 times per mL) day in the subcutaneou morning s pen and evening metolazone 2020- No 1{table Q2D take 1 A ccessH 2.5 mg 07-04 05-20 t} tablet by ealth tablet 00:00: 00:00 oral route 00 :00 every 2 days gabapentin 2020-2020- No 1{table Q8H take 1 A ccessH 800 mg 4- 05-20 t} tablet by ealth tablet 00:00: 00:00 oral route 00 :00 3 times every day carvedilol 2020- No take 1 [facility] ss[facility] 25 mg - 05-20 tablet (25 ealth tablet 00:00: 00:00 mg) by 00 :00 oral route 2 times per day with food clopidogrel 2020- No take 1 Acc essH 75 mg 07-04 05-20 tablet (75 ealth tablet 00:00: 00:00 mg) by 00 :00 oral route once daily atorvastati 2020- No take 1 Acc essH n 80 mg - 05-20 tablet by ealth tablet 00:00: 00:00 Oral route 00 :00 1 time per day amlodipine 2020- No take 1 [facility] ss[facility] 5 mg tablet 07-04 05-20 tablet (5 ea lth 00:00: 00:00 mg) by 00 :00 oral route once daily isosorbide 2020- No take 1 [facility] ssH mononitrate - 05-20 tablet (60 e alth ER 60 mg 00:00: 00:00 mg) by tablet,exte 00 :00 oral route nded once daily release 24 in the hr morning Humalog 2020- No inject [facility] KwikPen 4-08 05-20 5-10 Units ealth (U-100) 00:00: 00:00 by Insulin 100 00 :00 Subcutaneo unit/mL us route 3 subcutaneou times per s day on a sliding scale three times a day before meals Levemir 2020- No inject 50 [facility] ss[facility] FlexTouch - 05-20 Units by ealth U-100 00:00: 00:00 Subcutaneo Insulin 100 00 :00 us route 2 unit/mL (3 times per mL) day in the subcutaneou morning s pen and evening metolazone 2020- No 1{table Q2D take 1 A ccessH 2.5 mg 07-04 05-20 t} tablet by ealth tablet 00:00: 00:00 oral route 00 :00 every 2 days gabapentin 2020- No 1{table Q8H take 1 A ccessH 800 mg 4- 05-20 t} tablet by ealth tablet 00:00: 00:00 oral route 00 :00 3 times every day carvedilol 2020- No take 1 [facility] ssH 25 mg 07-04 05-20 tablet (25 ealth tablet 00:00: 00:00 mg) by 00 :00 oral route 2 times per day with food clopidogrel 2020- No take 1 Acc essH 75 mg 07-04 05-20 tablet (75 ealth tablet 00:00: 00:00 mg) by 00 :00 oral route once daily atorvastati 2020- No take 1 Acc essH n 80 mg - 05-20 tablet by ealth tablet 00:00: 00:00 Oral route 00 :00 1 time per day amlodipine 2020- No take 1 [facility] ss[facility] 5 mg tablet 07-04 05-20 tablet (5 ea lth 00:00: 00:00 mg) by 00 :00 oral route once daily isosorbide 2020- No take 1 Ac[facility] ssH mononitrate - 05-20 tablet (60 e alth ER 60 mg 00:00: 00:00 mg) by tablet,exte 00 :00 oral route nded once daily release 24 in the hr morning Humalog 2020- No inject [facility] KwikPen - 05-20 5-10 Units ealth (U-100) 00:00: 00:00 by Insulin 100 00 :00 Subcutaneo unit/mL us route 3 subcutaneou times per s day on a sliding scale three times a day before meals Levemir 2020- No inject 50 [facility] ss[facility] FlexTouch -08 05-20 Units by ealth U-100 00:00: 00:00 Subcutaneo Insulin 100 00 :00 us route 2 unit/mL (3 times per mL) day in the subcutaneou morning s pen and evening metolazone 2020- No 1{table Q2D take 1 A ccessH 2.5 mg 07-04 05-20 t} tablet by ealth tablet 00:00: 00:00 oral route 00 :00 every 2 days gabapentin 2020- No 1{table Q8H take 1 A ccessH 800 mg 4-08 05-20 t} tablet by ealth tablet 00:00: 00:00 oral route 00 :00 3 times every day carvedilol 2020- No take 1 [facility] ssH 25 mg 07-04 05-20 tablet (25 ealth tablet 00:00: 00:00 mg) by 00 :00 oral route 2 times per day with food clopidogrel 2020- No take 1 Acc essH 75 mg - 05-20 tablet (75 ealth tablet 00:00: 00:00 mg) by 00 :00 oral route once daily atorvastati 2020- No take 1 Acc essH n 80 mg - 05-20 tablet by ealth tablet 00:00: 00:00 Oral route 00 :00 1 time per day amlodipine 2020- No take 1 [facility] ss[facility] 5 mg tablet 07-04 05-20 tablet (5 ea lth 00:00: 00:00 mg) by 00 :00 oral route once daily isosorbide 2020- No take 1 Ac[facility] ssH mononitrate 07-04 05-20 tablet (60 e alth ER 60 mg 00:00: 00:00 mg) by tablet,exte 00 :00 oral route nded once daily release 24 in the hr morning Humalog 2020- No inject [facility] KwikPen 4-08 05-20 5-10 Units ealth (U-100) 00:00: 00:00 by Insulin 100 00 :00 Subcutaneo unit/mL us route 3 subcutaneou times per s day on a sliding scale three times a day before meals Levemir 2020- No inject 50 [facility] ss[facility] FlexTouch 4-08 05-20 Units by ealth U-100 00:00: 00:00 Subcutaneo Insulin 100 00 :00 us route 2 unit/mL (3 times per mL) day in the subcutaneou morning s pen and evening metolazone 2020- No 1{table Q2D take 1 A ccessH 2.5 mg 07-04 05-20 t} tablet by ealth tablet 00:00: 00:00 oral route 00 :00 every 2 days gabapentin 2020- No 1{table Q8H take 1 A ccessH 800 mg 4-08 05-20 t} tablet by ealth tablet 00:00: 00:00 oral route 00 :00 3 times every day carvedilol 2020- No take 1 Acce ssH 25 mg 07-04 05-20 tablet (25 ealth tablet 00:00: 00:00 mg) by 00 :00 oral route 2 times per day with food clopidogrel 2020- No take 1 Acc essH 75 mg - 05-20 tablet (75 ealth tablet 00:00: 00:00 mg) by 00 :00 oral route once daily atorvastati 2020- No take 1 Acc essH n 80 mg - 05-20 tablet by ealth tablet 00:00: 00:00 Oral route 00 :00 1 time per day amlodipine 2020- No take 1 Acce ssH 5 mg tablet 07-04 05-20 tablet (5 ea lth 00:00: 00:00 mg) by 00 :00 oral route once daily isosorbide 2020- No take 1 Acce ssH mononitrate - 05-20 tablet (60 e alth ER 60 mg 00:00: 00:00 mg) by tablet,exte 00 :00 oral route nded once daily release 24 in the hr morning Humalog 2020- No inject [facility] KwikPen 4-08 05-20 5-10 Units ealth (U-100) 00:00: 00:00 by Insulin 100 00 :00 Subcutaneo unit/mL us route 3 subcutaneou times per s day on a sliding scale three times a day before meals Levemir 2020-2020- No inject 50 Ac[facility] ssH FlexTouch 4-08 05-20 Units by ealth U-100 00:00: 00:00 Subcutaneo Insulin 100 00 :00 us route 2 unit/mL (3 times per mL) day in the subcutaneou morning s pen and evening metolazone 2020- No 1{table Q2D take 1 A ccessH 2.5 mg 4- 05-20 t} tablet by ealth tablet 00:00: 00:00 oral route 00 :00 every 2 days gabapentin 2020-2020- No 1{table Q8H take 1 A ccessH 800 mg 4-08 05-20 t} tablet by ealth tablet 00:00: 00:00 oral route 00 :00 3 times every day carvedilol 2020-2020- No take 1 Acce ssH 25 mg 07-04 05-20 tablet (25 ealth tablet 00:00: 00:00 mg) by 00 :00 oral route 2 times per day with food clopidogrel 2020- No take 1 Acc essH 75 mg -08 05-20 tablet (75 ealth tablet 00:00: 00:00 mg) by 00 :00 oral route once daily atorvastati 2020-2020- No take 1 Acc essH n 80 mg - 05-20 tablet by ealth tablet 00:00: 00:00 Oral route 00 :00 1 time per day amlodipine 2020-2020- No take 1 Acce ss[facility] 5 mg tablet 07-04 05-20 tablet (5 ea lth 00:00: 00:00 mg) by 00 :00 oral route once daily isosorbide 2020-2020- No take 1 Acce ssH mononitrate 4-08 05-20 tablet (60 e alth ER 60 mg 00:00: 00:00 mg) by tablet,exte 00 :00 oral route nded once daily release 24 in the hr morning Humalog 2020-2020- No inject [facility] KwikPen - 05-20 5-10 Units ealth (U-100) 00:00: 00:00 by Insulin 100 00 :00 Subcutaneo unit/mL us route 3 subcutaneou times per s day on a sliding scale three times a day before meals Levemir 2020- No inject 50 Acce ssH FlexTouch 07-04 05-20 Units by ealth U-100 00:00: 00:00 Subcutaneo Insulin 100 00 :00 us route 2 unit/mL (3 times per mL) day in the subcutaneou morning s pen and evening metolazone 2020- No 1{table Q2D take 1 A ccessH 2.5 mg 07-04 05-20 t} tablet by ealth tablet 00:00: 00:00 oral route 00 :00 every 2 days gabapentin 2020-2020- No 1{table Q8H take 1 A ccessH 800 mg - 05-20 t} tablet by ealth tablet 00:00: 00:00 oral route 00 :00 3 times every day carvedilol 2020-2020- No take 1 Acce ssH 25 mg 07-04 05-20 tablet (25 ealth tablet 00:00: 00:00 mg) by 00 :00 oral route 2 times per day with food clopidogrel 2020-2020- No take 1 Acc essH 75 mg 07-04 05-20 tablet (75 ealth tablet 00:00: 00:00 mg) by 00 :00 oral route once daily atorvastati 2020- No take 1 Acc essH n 80 mg 07-04 05-20 tablet by ealth tablet 00:00: 00:00 Oral route 00 :00 1 time per day amlodipine 2020-2020- No take 1 Acce ssH 5 mg tablet 07-04-20 tablet (5 ea lth 00:00: 00:00 mg) by 00 :00 oral route once daily isosorbide 2020-2020- No take 1 Acce ssH mononitrate 07-04 05-20 tablet (60 e alth ER 60 mg 00:00: 00:00 mg) by tablet,exte 00 :00 oral route nded once daily release 24 in the hr morning Humalog 2020- No inject Access[facility] KwikPen - 05-20 5-10 Units ealth (U-100) 00:00: 00:00 by Insulin 100 00 :00 Subcutaneo unit/mL us route 3 subcutaneou times per s day on a sliding scale three times a day before meals Levemir 2020- No inject 50 Acce ssH FlexTouch 07-04 05-20 Units by ealth U-100 00:00: 00:00 Subcutaneo Insulin 100 00 :00 us route 2 unit/mL (3 times per mL) day in the subcutaneou morning s pen and evening metolazone 2020- No 1{table Q2D take 1 A ccessH 2.5 mg - 05-20 t} tablet by ealth tablet 00:00: 00:00 oral route 00 :00 every 2 days gabapentin 2020-2020- No 1{table Q8H take 1 A ccessH 800 mg 4-08 05-20 t} tablet by ealth tablet 00:00: 00:00 oral route 00 :00 3 times every day carvedilol 2020-2020- No take 1 Acce ssH 25 mg 07-04 05-20 tablet (25 ealth tablet 00:00: 00:00 mg) by 00 :00 oral route 2 times per day with food clopidogrel 2020-2020- No take 1 Acc essH 75 mg - 05-20 tablet (75 ealth tablet 00:00: 00:00 mg) by 00 :00 oral route once daily atorvastati 2020-2020- No take 1 Acc essH n 80 mg 4-08 05-20 tablet by ealth tablet 00:00: 00:00 Oral route 00 :00 1 time per day amlodipine 2020-2020- No take 1 Acce ssH 5 mg tablet 07-04 05-20 tablet (5 ea lth 00:00: 00:00 mg) by 00 :00 oral route once daily isosorbide 2020- No take 1 Acce ssH mononitrate 07-04 05-20 tablet (60 e alth ER 60 mg 00:00: 00:00 mg) by tablet,exte 00 :00 oral route nded once daily release 24 in the hr morning Humalog 2020- No inject [facility] KwikPen 07-04 05-20 5-10 Units ealth (U-100) 00:00: 00:00 by Insulin 100 00 :00 Subcutaneo unit/mL us route 3 subcutaneou times per s day on a sliding scale three times a day before meals Levemir 2020- No inject 50 Acce ssH FlexTouch 07-04 05-20 Units by ealth U-100 00:00: 00:00 Subcutaneo Insulin 100 00 :00 us route 2 unit/mL (3 times per mL) day in the subcutaneou morning s pen and evening metolazone 2020- No 1{table Q2D take 1 A ccessH 2.5 mg 07-04 05-20 t} tablet by ealth tablet 00:00: 00:00 oral route 00 :00 every 2 days gabapentin 2020-2020- No 1{table Q8H take 1 A ccessH 800 mg 07-04 05-20 t} tablet by ealth tablet 00:00: 00:00 oral route 00 :00 3 times every day carvedilol 2020-2020- No take 1 Acce ssH 25 mg 07-04 05-20 tablet (25 ealth tablet 00:00: 00:00 mg) by 00 :00 oral route 2 times per day with food clopidogrel 2020- No take 1 Acc essH 75 mg 07-04 05-20 tablet (75 ealth tablet 00:00: 00:00 mg) by 00 :00 oral route once daily atorvastati 2020-2020- No take 1 Acc essH n 80 mg 4- 05-20 tablet by ealth tablet 00:00: 00:00 Oral route 00 :00 1 time per day amlodipine 2020-2020- No take 1 Acce ssH 5 mg tablet 07-04 05-20 tablet (5 ea lth 00:00: 00:00 mg) by 00 :00 oral route once daily isosorbide 2020- No take 1 Acce ssH mononitrate 07-04 05-20 tablet (60 e alth ER 60 mg 00:00: 00:00 mg) by tablet,exte 00 :00 oral route nded once daily release 24 in the hr morning Humalog 2020- No inject [facility] KwikPen 07-04-20 5-10 Units ealth (U-100) 00:00: 00:00 by Insulin 100 00 :00 Subcutaneo unit/mL us route 3 subcutaneou times per s day on a sliding scale three times a day before meals Levemir 2020- No inject 50 Acce ssH FlexTouch 07-04 05-20 Units by ealth U-100 00:00: 00:00 Subcutaneo Insulin 100 00 :00 us route 2 unit/mL (3 times per mL) day in the subcutaneou morning s pen and evening metolazone 2020- No 1{table Q2D take 1 A ccessH 2.5 mg 07-04 05-20 t} tablet by ealth tablet 00:00: 00:00 oral route 00 :00 every 2 days gabapentin 2020- No 1{table Q8H take 1 A ccessH 800 mg 07-04 05-20 t} tablet by ealth tablet 00:00: 00:00 oral route 00 :00 3 times every day carvedilol 2020- No take 1 Acce ssH 25 mg 07-04-20 tablet (25 ealth tablet 00:00: 00:00 mg) by 00 :00 oral route 2 times per day with food clopidogrel 2020- No take 1 Acc essH 75 mg 07-04 05-20 tablet (75 ealth tablet 00:00: 00:00 mg) by 00 :00 oral route once daily atorvastati 2020- No take 1 Acc essH n 80 mg 07-04 05-20 tablet by [facility] tablet 00:00: 00:00 Oral route 00 :00 1 time per day amlodipine 2020- No take 1 [facility] 5 mg tablet 4-08 05-20 tablet (5 ea lth 00:00: 00:00 mg) by 00 :00 oral route once daily isosorbide 2020- No take 1 [facility] mononitrate 07-04 05-20 tablet (60 e alth ER 60 mg 00:00: 00:00 mg) by tablet,exte 00 :00 oral route nded once daily release 24 in the hr morning Humalog 2020- No inject [facility] KwikPen 07-04 05-20 5-10 Units [facility] (U-100) 00:00: 00:00 by Insulin 100 00 :00 Subcutaneo unit/mL us route 3 subcutaneou times per s day on a sliding scale three times a day before meals Levemir 2020- No inject 50 [facility] FlexTouch 07-04 05-20 Units by [facility]alth U-100 00:00: 00:00 Subcutaneo Insulin 100 00 :00 us route 2 unit/mL (3 times per mL) day in the subcutaneou morning s pen and evening metolazone 2020- No 1{table Q2D take 1 [facility] 2.5 mg 07-04 05-20 t} tablet by [facility] tablet 00:00: 00:00 oral route 00 :00 every 2 days gabapentin 2020- No 1{table Q8H take 1 [facility] 800 mg 4- 05-20 t} tablet by ealth tablet 00:00: 00:00 oral route 00 :00 3 times every day carvedilol 2020- No take 1 [facility] 25 mg 07-04 05-20 tablet (25 [facility] tablet 00:00: 00:00 mg) by 00 :00 oral route 2 times per day with food clopidogrel 2020- No take 1 [facility] 75 mg 4-08 05-20 tablet (75 [facility] tablet 00:00: 00:00 mg) by 00 :00 oral route once daily atorvastati 2020- No take 1 [facility] n 80 mg - 05-20 tablet by [facility]alth tablet 00:00: 00:00 Oral route 00 :00 1 time per day amlodipine 2020- No take 1 [facility] 5 mg tablet 07-04 05-20 tablet (5 ea lth 00:00: 00:00 mg) by 00 :00 oral route once daily isosorbide 2020- No take 1 [facility] mononitrate 07-04 05-20 tablet (60 e alth ER 60 mg 00:00: 00:00 mg) by tablet,exte 00 :00 oral route nded once daily release 24 in the hr morning Humalog 2020- No inject [facility] KwikPen 07-04 05-20 5-10 Units [facility] (U-100) 00:00: 00:00 by Insulin 100 00 :00 Subcutaneo unit/mL us route 3 subcutaneou times per s day on a sliding scale three times a day before meals Levemir 2020- No inject 50 [facility] FlexTouch 07-04 05-20 Units by [facility]alth U-100 00:00: 00:00 Subcutaneo Insulin 100 00 :00 us route 2 unit/mL (3 times per mL) day in the subcutaneou morning s pen and evening metolazone 2020- No 1{table Q2D take 1 [facility] 2.5 mg 07-04-20 t} tablet by [facility]alth tablet 00:00: 00:00 oral route 00 :00 every 2 days atorvastati 2020- No take 1 [facility] n 80 mg 07-04-20 tablet by ealth tablet 00:00: 00:00 Oral route 00 :00 1 time per day amlodipine 2020- No take 1 [facility] 5 mg tablet 07-04-20 tablet (5 ea lth 00:00: 00:00 mg) by 00 :00 oral route once daily isosorbide 2020- No take 1 [facility] mononitrate 07-04 05-20 tablet (60 e alth ER 60 mg 00:00: 00:00 mg) by tablet,exte 00 :00 oral route nded once daily release 24 in the hr morning Humalog 2020-2020- No inject [facility] KwikPen -08 05-20 5-10 Units [facility] (U-100) 00:00: 00:00 by Insulin 100 00 :00 Subcutaneo unit/mL us route 3 subcutaneou times per s day on a sliding scale three times a day before meals Levemir 2020- No inject 50 [facility] FlexTouch 4-08 05-20 Units by [facility] U-100 00:00: 00:00 Subcutaneo Insulin 100 00 :00 us route 2 unit/mL (3 times per mL) day in the subcutaneou morning s pen and evening metolazone 2020- No 1{table Q2D take 1 [facility] 2.5 mg 4-08 05-20 t} tablet by ealth tablet 00:00: 00:00 oral route 00 :00 every 2 days gabapentin 2020- No 1{table Q8H take 1 [facility] 800 mg 4-08 05-20 t} tablet by ealth tablet 00:00: 00:00 oral route 00 :00 3 times every day carvedilol 2020- No take 1 [facility] 25 mg 4-08 05-20 tablet (25 [facility] tablet 00:00: 00:00 mg) by 00 :00 oral route 2 times per day with food clopidogrel 2020- No take 1 [facility] 75 mg 4-08 05-20 tablet (75 [facility] tablet 00:00: 00:00 mg) by 00 :00 oral route once daily gabapentin 2020-2020- No 1{table Q8H take 1 [facility] 800 mg 4-08 05-20 t} tablet by ealth tablet 00:00: 00:00 oral route 00 :00 3 times every day carvedilol 2020-2020- No take 1 [facility] 25 mg 4-08 05-20 tablet (25 [facility] tablet 00:00: 00:00 mg) by 00 :00 oral route 2 times per day with food clopidogrel 2020- No take 1 [facility] 75 mg 4-08 05-20 tablet (75 [facility] tablet 00:00: 00:00 mg) by 00 :00 oral route once daily atorvastati 2020- No take 1 [facility] n 80 mg 4-08 05-20 tablet by [facility]alth tablet 00:00: 00:00 Oral route 00 :00 1 time per day amlodipine 2020- No take 1 [facility] 5 mg tablet 07-04-20 tablet (5 ea lth 00:00: 00:00 mg) by 00 :00 oral route once daily isosorbide 2020- No take 1 [facility] mononitrate 07-04-20 tablet (60 e alth ER 60 mg 00:00: 00:00 mg) by tablet,exte 00 :00 oral route nded once daily release 24 in the hr morning Humalog 2020- No inject [facility] KwikPen 07-04 05-20 5-10 Units [facility] (U-100) 00:00: 00:00 by Insulin 100 00 :00 Subcutaneo unit/mL us route 3 subcutaneou times per s day on a sliding scale three times a day before meals Levemir 2020- No inject 50 [facility] FlexTouch 07-04 05-20 Units by [facility] U-100 00:00: 00:00 Subcutaneo Insulin 100 00 :00 us route 2 unit/mL (3 times per mL) day in the subcutaneou morning s pen and evening metolazone 2020- No 1{table Q2D take 1 [facility] 2.5 mg 07-04 05-20 t} tablet by [facility] tablet 00:00: 00:00 oral route 00 :00 every 2 days gabapentin 2020- No 1{table Q8H take 1 [facility] 800 mg 07-04 05-20 t} tablet by [facility]alth tablet 00:00: 00:00 oral route 00 :00 3 times every day carvedilol 2020- No take 1 [facility] 25 mg - 05-20 tablet (25 [facility] tablet 00:00: 00:00 mg) by 00 :00 oral route 2 times per day with food clopidogrel 2020- No take 1 [facility] 75 mg - 05-20 tablet (75 [facility] tablet 00:00: 00:00 mg) by 00 :00 oral route once daily atorvastati 2020-2020- No take 1 [facility] n 80 mg 07-04 05-20 tablet by [facility] tablet 00:00: 00:00 Oral route 00 :00 1 time per day amlodipine 2020-2020- No take 1 [facility] 5 mg tablet 07-04-20 tablet (5 ea lth 00:00: 00:00 mg) by 00 :00 oral route once daily isosorbide 2020- No take 1 [facility] mononitrate 07-04-20 tablet (60 e alth ER 60 mg 00:00: 00:00 mg) by tablet,exte 00 :00 oral route nded once daily release 24 in the hr morning Humalog 2020- No inject [facility] KwikPen 07-04 05-20 5-10 Units [facility] (U-100) 00:00: 00:00 by Insulin 100 00 :00 Subcutaneo unit/mL us route 3 subcutaneou times per s day on a sliding scale three times a day before meals Levemir 2020- No inject 50 [facility] FlexTouch 07-04 05-20 Units by [facility] U-100 00:00: 00:00 Subcutaneo Insulin 100 00 :00 us route 2 unit/mL (3 times per mL) day in the subcutaneou morning s pen and evening metolazone 2020- No 1{table Q2D take 1 [facility] 2.5 mg 07-04 05-20 t} tablet by [facility] tablet 00:00: 00:00 oral route 00 :00 every 2 days gabapentin 2020-2020- No 1{table Q8H take 1 [facility] 800 mg 4- 05-20 t} tablet by [facility] tablet 00:00: 00:00 oral route 00 :00 3 times every day carvedilol 2020- No take 1 [facility] 25 mg - 05-20 tablet (25 [facility] tablet 00:00: 00:00 mg) by 00 :00 oral route 2 times per day with food clopidogrel 2020-2020- No take 1 [facility] 75 mg - 05-20 tablet (75 [facility] tablet 00:00: 00:00 mg) by 00 :00 oral route once daily atorvastati 2020- No take 1 [facility] n 80 mg 07-04 05-20 tablet by [facility]alth tablet 00:00: 00:00 Oral route 00 :00 1 time per day amlodipine 2020- No take 1 [facility] 5 mg tablet 07-04-20 tablet (5 ea lth 00:00: 00:00 mg) by 00 :00 oral route once daily isosorbide 2020- No take 1 [facility] mononitrate 07-04-20 tablet (60 e alth ER 60 mg 00:00: 00:00 mg) by tablet,exte 00 :00 oral route nded once daily release 24 in the hr morning Humalog 2020- No inject [facility] KwikPen - 05-20 5-10 Units [facility] (U-100) 00:00: 00:00 by Insulin 100 00 :00 Subcutaneo unit/mL us route 3 subcutaneou times per s day on a sliding scale three times a day before meals Levemir 2020- No inject 50 [facility] FlexTouch -08 05-20 Units by [facility] U-100 00:00: 00:00 Subcutaneo Insulin 100 00 :00 us route 2 unit/mL (3 times per mL) day in the subcutaneou morning s pen and evening metolazone 2020- No 1{table Q2D take 1 [facility] 2.5 mg 4-08 05-20 t} tablet by [facility] tablet 00:00: 00:00 oral route 00 :00 every 2 days metolazone 2020-2020- No 1{table Q2D take 1 [facility] 2.5 mg 4-08 05-20 t} tablet by [facility] tablet 00:00: 00:00 oral route 00 :00 every 2 days gabapentin 2020-2020- No 1{table Q8H take 1 [facility] 800 mg 4-08 05-20 t} tablet by [facility]alth tablet 00:00: 00:00 oral route 00 :00 3 times every day carvedilol 2020- No take 1 [facility] 25 mg 07-04-20 tablet (25 [facility] tablet 00:00: 00:00 mg) by 00 :00 oral route 2 times per day with food clopidogrel 2020- No take 1 [facility] 75 mg 07-04-20 tablet (75 [facility] tablet 00:00: 00:00 mg) by 00 :00 oral route once daily atorvastati 2020- No take 1 [facility] n 80 mg 07-04-20 tablet by [facility] tablet 00:00: 00:00 Oral route 00 :00 1 time per day amlodipine 2020- No take 1 [facility] 5 mg tablet 07-04-20 tablet (5 ea lth 00:00: 00:00 mg) by 00 :00 oral route once daily isosorbide 2020- No take 1 [facility] mononitrate 07-04-20 tablet (60 e alth ER 60 mg 00:00: 00:00 mg) by tablet,exte 00 :00 oral route nded once daily release 24 in the hr morning Humalog 2020- No inject [facility] KwikPen 07-04-20 5-10 Units [facility] (U-100) 00:00: 00:00 by Insulin 100 00 :00 Subcutaneo unit/mL us route 3 subcutaneou times per s day on a sliding scale three times a day before meals Levemir 2020- No inject 50 [facility] FlexTouch 07-04 05-20 Units by [facility] U-100 00:00: 00:00 Subcutaneo Insulin 100 00 :00 us route 2 unit/mL (3 times per mL) day in the subcutaneou morning s pen and evening gabapentin 2020- No 1{table Q8H take 1 [facility] 800 mg 07-04-20 t} tablet by [facility]alth tablet 00:00: 00:00 oral route 00 :00 3 times every day carvedilol 2020-2020- No take 1 [facility] 25 mg 07-04 05-20 tablet (25 [facility] tablet 00:00: 00:00 mg) by 00 :00 oral route 2 times per day with food clopidogrel 2020- No take 1 [facility] 75 mg 07-04-20 tablet (75 [facility] tablet 00:00: 00:00 mg) by 00 :00 oral route once daily atorvastati 2020- No take 1 [facility] n 80 mg 07-04 05-20 tablet by ealth tablet 00:00: 00:00 Oral route 00 :00 1 time per day amlodipine 2020- No take 1 [facility] 5 mg tablet 07-04-20 tablet (5 ea lth 00:00: 00:00 mg) by 00 :00 oral route once daily isosorbide 2020- No take 1 [facility] mononitrate 07-04-20 tablet (60 e alth ER 60 mg 00:00: 00:00 mg) by tablet,exte 00 :00 oral route nded once daily release 24 in the hr morning Humalog 2020- No inject [facility] KwikPen 07-04 05-20 5-10 Units [facility] (U-100) 00:00: 00:00 by Insulin 100 00 :00 Subcutaneo unit/mL us route 3 subcutaneou times per s day on a sliding scale three times a day before meals Levemir 2020- No inject 50 [facility] FlexTouch 07-04 05-20 Units by ealth U-100 00:00: 00:00 Subcutaneo Insulin 100 00 :00 us route 2 unit/mL (3 times per mL) day in the subcutaneou morning s pen and evening metolazone 2020- No 1{table Q2D take 1 [facility] 2.5 mg 07-04 05-20 t} tablet by [facility] tablet 00:00: 00:00 oral route 00 :00 every 2 days gabapentin 2020-2020- No 1{table Q8H take 1 [facility] 800 mg 4-08 05-20 t} tablet by [facility]alth tablet 00:00: 00:00 oral route 00 :00 3 times every day carvedilol 2020- No take 1 [facility] 25 mg 07-04 05-20 tablet (25 [facility] tablet 00:00: 00:00 mg) by 00 :00 oral route 2 times per day with food clopidogrel 2020- No take 1 [facility] 75 mg 07-04-20 tablet (75 [facility] tablet 00:00: 00:00 mg) by 00 :00 oral route once daily atorvastati 2020- No take 1 [facility] n 80 mg 07-04-20 tablet by ealth tablet 00:00: 00:00 Oral route 00 :00 1 time per day amlodipine 2020- No take 1 [facility] 5 mg tablet 07-04-20 tablet (5 ea lth 00:00: 00:00 mg) by 00 :00 oral route once daily isosorbide 2020- No take 1 [facility] mononitrate 07-04-20 tablet (60 e alth ER 60 mg 00:00: 00:00 mg) by tablet,exte 00 :00 oral route nded once daily release 24 in the hr morning Humalog 2020- No inject [facility] KwikPen 07-04 05-20 5-10 Units [facility] (U-100) 00:00: 00:00 by Insulin 100 00 :00 Subcutaneo unit/mL us route 3 subcutaneou times per s day on a sliding scale three times a day before meals Levemir 2020- No inject 50 [facility] FlexTouch 07-04 05-20 Units by [facility] U-100 00:00: 00:00 Subcutaneo Insulin 100 00 :00 us route 2 unit/mL (3 times per mL) day in the subcutaneou morning s pen and evening metolazone 2020- No 1{table Q2D take 1 [facility] 2.5 mg 07-04-20 t} tablet by [facility] tablet 00:00: 00:00 oral route 00 :00 every 2 days bumetanide 2020- No take 1 [facility] 1 mg tablet 3 05-20 tablet (1 ea lth 00:00: 00:00 mg) by 00 :00 oral route 2 times per day bumetanide 2020- No take 1 [facility] 1 mg tablet 3-24 05-20 tablet (1 ea lth 00:00: 00:00 mg) by 00 :00 oral route 2 times per day bumetanide 2020- No take 1 [facility] 1 mg tablet 3-24 05-20 tablet (1 ea lth 00:00: 00:00 mg) by 00 :00 oral route 2 times per day bumetanide 2020- No take 1 [facility] 1 mg tablet 3-24 05-20 tablet (1 ea lth 00:00: 00:00 mg) by 00 :00 oral route 2 times per day bumetanide 2020- No take 1 [facility] 1 mg tablet 3-24 05-20 tablet (1 ea lth 00:00: 00:00 mg) by 00 :00 oral route 2 times per day bumetanide 2020- No take 1 [facility] 1 mg tablet 3-24 05-20 tablet (1 ea lth 00:00: 00:00 mg) by 00 :00 oral route 2 times per day bumetanide 2020- No take 1 [facility] 1 mg tablet 3-24 05-20 tablet (1 ea lth 00:00: 00:00 mg) by 00 :00 oral route 2 times per day bumetanide 2020- No take 1 [facility] 1 mg tablet 3-24 05-20 tablet (1 ea lth 00:00: 00:00 mg) by 00 :00 oral route 2 times per day bumetanide 2020- No take 1 [facility] 1 mg tablet 3-24 05-20 tablet (1 ea lth 00:00: 00:00 mg) by 00 :00 oral route 2 times per day bumetanide 2020- No take 1 [facility] 1 mg tablet 3-24 05-20 tablet (1 ea lth 00:00: 00:00 mg) by 00 :00 oral route 2 times per day bumetanide 2020- No take 1 [facility] 1 mg tablet 3-24 05-20 tablet (1 ea lth 00:00: 00:00 mg) by 00 :00 oral route 2 times per day bumetanide 2020- No take 1 [facility] 1 mg tablet 3-24 05-20 tablet (1 ea lth 00:00: 00:00 mg) by 00 :00 oral route 2 times per day bumetanide 2020- No take 1 [facility] 1 mg tablet 3-24 05-20 tablet (1 ea lth 00:00: 00:00 mg) by 00 :00 oral route 2 times per day bumetanide 2020- No take 1 [facility] 1 mg tablet 3-24 05-20 tablet (1 ea lth 00:00: 00:00 mg) by 00 :00 oral route 2 times per day bumetanide 2020- No take 1 [facility] 1 mg tablet 3-24 05-20 tablet (1 ea lth 00:00: 00:00 mg) by 00 :00 oral route 2 times per day bumetanide 2020- No take 1 [facility] 1 mg tablet 3-24 05-20 tablet (1 ea lth 00:00: 00:00 mg) by 00 :00 oral route 2 times per day bumetanide 2020- No take 1 [facility] 1 mg tablet 3-24 05-20 tablet (1 ea lth 00:00: 00:00 mg) by 00 :00 oral route 2 times per day bumetanide 2020-2020- No take 1 [facility] 1 mg tablet 3-24 05-20 tablet (1 ea lth 00:00: 00:00 mg) by 00 :00 oral route 2 times per day bumetanide 2020- No take 1 [facility] 1 mg tablet 3-24 05-20 tablet (1 ea lth 00:00: 00:00 mg) by 00 :00 oral route 2 times per day bumetanide 2020- No take 1 [facility] 1 mg tablet 3-24 05-20 tablet (1 ea lth 00:00: 00:00 mg) by 00 :00 oral route 2 times per day Santyl 250 No Q1D apply by Acc [facility] unit/gram 1-29 topical ealth topical 00:00: route ointment 00 every day to cleansed affected area Santyl 250 2020-0 No Q1D apply by [facility] unit/gram 1-29 topical ealth topical 00:00: route ointment 00 every day to cleansed affected area Santyl 250 2020-0 No Q1D apply by [facility] unit/gram 1-29 topical ealth topical 00:00: route ointment 00 every day to cleansed affected area Santyl 250 2020-0 No Q1D apply by [facility] unit/gram 1-29 topical ealth topical 00:00: route ointment 00 every day to cleansed affected area Santyl 250 2020-0 2020- No Q1D apply by [facility] unit/gram 1-29 05-20 topical ealth topical 00:00: 00:00 route ointment 00 :00 every day to cleansed affected area Santyl 250 2020-0 2020- No Q1D apply by [facility] unit/gram 1-29 05-20 topical ealth topical 00:00: 00:00 route ointment 00 :00 every day to cleansed affected area Santyl 250 2020-0 2020- No Q1D apply by [facility] unit/gram 1-29 05-20 topical ealth topical 00:00: 00:00 route ointment 00 :00 every day to cleansed affected area Santyl 250 2020-0 2020- No Q1D apply by [facility] unit/gram 1-29 05-20 topical ealth topical 00:00: 00:00 route ointment 00 :00 every day to cleansed affected area Santyl 250 2020-0 2020- No Q1D apply by [facility] unit/gram 1-29 05-20 topical ealth topical 00:00: 00:00 route ointment 00 :00 every day to cleansed affected area Santyl 250 2020-0 2020- No Q1D apply by [facility] unit/gram 1-29 05-20 topical ealth topical 00:00: 00:00 route ointment 00 :00 every day to cleansed affected area Santyl 250 2020-0 2020- No Q1D apply by [facility] unit/gram 1-29 05-20 topical ealth topical 00:00: 00:00 route ointment 00 :00 every day to cleansed affected area Santyl 250 2020-0 2020- No Q1D apply by [facility] unit/gram 1-29 05-20 topical ealth topical 00:00: 00:00 route ointment 00 :00 every day to cleansed affected area Santyl 250 2020-0 2020- No Q1D apply by [facility] unit/gram 1-29 05-20 topical ealth topical 00:00: 00:00 route ointment 00 :00 every day to cleansed affected area Santyl 250 2020-0 2020- No Q1D apply by [facility] unit/gram 1-29 05-20 topical ealth topical 00:00: 00:00 route ointment 00 :00 every day to cleansed affected area Santyl 250 2020-0 2020- No Q1D apply by [facility] unit/gram 1-29 05-20 topical ealth topical 00:00: 00:00 route ointment 00 :00 every day to cleansed affected area Santyl 250 2020-0 2020- No Q1D apply by [facility] unit/gram 1-29 05-20 topical ealth topical 00:00: 00:00 route ointment 00 :00 every day to cleansed affected area Santyl 250 2020-0 2020- No Q1D apply by [facility] unit/gram 1-29 05-20 topical ealth topical 00:00: 00:00 route ointment 00 :00 every day to cleansed affected area Santyl 250 2020-0 2020- No Q1D apply by [facility] unit/gram 1-29 05-20 topical ealth topical 00:00: 00:00 route ointment 00 :00 every day to cleansed affected area Santyl 250 2020-0 2020- No Q1D apply by [facility] unit/gram 1-29 05-20 topical ealth topical 00:00: 00:00 route ointment 00 :00 every day to cleansed affected area Santyl 250 2020-0 1- No Q1D apply by [facility] unit/gram 1-29 05-20 topical ealth topical 00:00: 00:00 route ointment 00 :00 every day to cleansed affected area Santyl 250 2020- No Q1D apply by [facility] unit/gram 1-29 05-20 topical ealth topical 00:00: 00:00 route ointment 00 :00 every day to cleansed affected area Santyl 250 2020- No Q1D apply by [facility] unit/gram 1-29 05-20 topical ealth topical 00:00: 00:00 route ointment 00 :00 every day to cleansed affected area Santyl 250 2020- No Q1D apply by [facility] unit/gram 1-29 05-20 topical ealth topical 00:00: 00:00 route ointment 00 :00 every day to cleansed affected area Santyl 250 2020- No Q1D apply by [facility] unit/gram 1-29 05-20 topical ealth topical 00:00: 00:00 route ointment 00 :00 every day to cleansed affected area amLODIPine 2020- No 5mg QD Take [address] [facility] (NORVASC) 04-06 by [facility] 10 MG 08:46: 00:00 daily. Medical tablet 05 :00 [place] lisinopriL 2020- No 40mg Q.5D Take [address] [facility] (PRINIVIL,Z 04-06 by mouth 2 L [facility] ESTRIL) 40 08:46: 00:00 (two) Medic al MG tablet 05 :00 times Center daily. insulin 2020- No 50U Q.5D Inject [address] [facility] detemir 04-06 [facility] (LEVEMIR) 08:46: 00:00 subcutaneo M edical 100 unit/mL 05 :00 usly 2 Center injection (two) times daily . metOLazone 2020- No 2.5mg QD Take 2.[address] [facility] (ZAROXOLYN) 04-06 mg by [facility] 2.5 MG 08:46: 00:00 mouth Medical tablet 05 :00 daily. [place] amLODIPine 2020- No 5mg QD Take [address] [facility] (NORVASC) 04-06 by [facility] 10 MG 08:46: 00:00 daily. Medical tablet 05 :00 [facility] lisinopriL 2020- No 40mg Q.5D Take [address] [facility] (PRINIVIL,Z 04-06 by mouth 2 L ukes ESTRIL) 40 08:46: 00:00 (two) Medic al MG tablet 05 :00 times Center daily. insulin 2020- No 50U Q.5D Inject [address] [facility] detemir 04-06 [facility] (LEVEMIR) 08:46: 00:00 subcutaneo M edical 100 unit/mL 05 :00 usly 2 Center injection (two) times daily . metOLazone 2020- No 2.5mg QD Take 2.[address] [facility] (ZAROXOLYN) 04-06 mg by [facility] 2.5 MG 08:46: 00:00 mouth Medical tablet 05 :00 daily. [place] amLODIPine 2020- No 5mg QD Take [address] [facility] (NORVASC) 04-06 [facility] 10 MG 08:46: 00:00 daily. Medical tablet 05 :00 [place] lisinopriL 2020- No 40mg Q.5D Take [address] [facility] (PRINIVIL,Z 04-06 by mouth 2 L ukes ESTRIL) 40 08:46: 00:00 (two) Medic al MG tablet 05 :00 times Center daily. insulin 2020- No 50U Q.5D Inject [address] [facility] detemir 04-06 [facility] (LEVEMIR) 08:46: 00:00 subcutaneo M edical 100 unit/mL 05 :00 usly 2 Center injection (two) times daily . metOLazone 2020- No 2.5mg QD Take 2.[address] (ZAROXOLYN) 04-06 mg [facility] 2.5 MG 08:46: 00:00 mouth Medical tablet 05 :00 daily. [place] amLODIPine 2020- No 5mg QD Take [address] [facility] (NORVASC) 04-06 [facility] 10 MG 08:46: 00:00 daily. Medical tablet 05 :00 [place] lisinopriL 2020- No 40mg Q.5D Take [address] [facility] (PRINIVIL,Z 04-06 by mouth 2 L ukes ESTRIL) 40 08:46: 00:00 (two) Medic al MG tablet 05 :00 times Center daily. insulin 2020- No 50U Q.5D Inject [address] [facility] detemir 04-06- Units [facility] (LEVEMIR) 08:46: 00:00 subcutaneo M edical 100 unit/mL 05 :00 usly 2 Center injection (two) times daily . metOLazone 2020- No 2.5mg QD Take 2.[address] (ZAROXOLYN) 04-06 mg by [facility] 2.5 MG 08:46: 00:00 mouth Medical tablet 05 :00 daily. [place] amLODIPine 2020- No 5mg QD Take [address] [facility] (NORVASC) 04-06 by [facility] 10 MG 08:46: 00:00 daily. Medical tablet 05 :00 [place] lisinopriL 2020-2020- No 40mg Q.5D Take [address] [facility] (PRINIVIL,Z 04-06 by mouth 2 L ukes ESTRIL) 40 08:46: 00:00 (two) Medic al MG tablet 05 :00 times Center daily. insulin 2020- No 50U Q.5D Inject [address] [facility] detemir 04-06 [facility] (LEVEMIR) 08:46: 00:00 subcutaneo M edical 100 unit/mL 05 :00 usly 2 Center injection (two) times daily . metOLazone 2020- No 2.5mg QD Take 2.[address] (ZAROXOLYN) 04-06 mg by [facility] 2.5 MG 08:46: 00:00 mouth Medical tablet 05 :00 daily. [place] amLODIPine 2020-0 2020- No 5mg QD Take [address] [facility] (NORVASC) 04-06 by [facility] 10 MG 08:46: 00:00 daily. Medical tablet 05 :00 [place] lisinopriL 2020- No 40mg Q.5D Take [address] [facility] (PRINIVIL,Z 04-06 by mouth 2 L ukes ESTRIL) 40 08:46: 00:00 (two) Medic al MG tablet 05 :00 times Center daily. insulin 2020- No 50U Q.5D Inject [address] [facility] detemir 04-06-09 [facility] (LEVEMIR) 08:46: 00:00 subcutaneo M edical 100 unit/mL 05 :00 usly 2 Center injection (two) times daily . metOLazone 2020- No 2.5mg QD Take 2.[address] (ZAROXOLYN) 04-06- mg by [facility] 2.5 MG 08:46: 00:00 mouth Medical tablet 05 :00 daily. [place] amLODIPine 2020- No 5mg QD Take [address] [facility] (NORVASC) 04-06 by [facility] 10 MG 08:46: 00:00 daily. Medical tablet 05 :00 [place] lisinopriL 2020- No 40mg Q.5D Take [address] [facility] (PRINIVIL,Z 04-06 by mouth 2 L ukes ESTRIL) 40 08:46: 00:00 (two) Medic al MG tablet 05 :00 times Center daily. insulin 2020- No 50U Q.5D Inject [address] [facility] detemir 04-06- Units [facility] (LEVEMIR) 08:46: 00:00 subcutaneo M edical 100 unit/mL 05 :00 usly 2 Center injection (two) times daily . metOLazone 2020- No 2.5mg QD Take 2.[address] (ZAROXOLYN) 04-06- mg by [facility] 2.5 MG 08:46: 00:00 mouth Medical tablet 05 :00 daily. [place] insulin Yes 25U Q.5D Inject 25 [facility] U-100 00:00: subcutaneo Medica l (LEVEMIR) 00 usly 2 Center 100 unit/mL (two) injection times daily. amLODIPine Yes 5mg QD Take 1 [facility] (NORV[facility] 5 1-09 tablet (5 Lo es MG tablet 00:00: mg total) Med ical 00 by mouth Center daily. collagenase Yes Use for [facility] (SANTYL) 1-09 daily [facility] 250 units/g 00:00: dressing Me dical ointment 00 changes of Cente r foot wound.. sevelamer Yes 800mg Take 1 [facility] (RENVELA[facility] 1-09 [facility] 800 mg 00:00: (800 mg Medical tablet 00 total) by Center mouth 3 (three) times daily with meals. calcitrioL Yes .25ug QD Take [address] [facility] (ROCALTROL) 1-09 capsule [facility] 0.25 MCG 00:00: (0.25 mcg Medi renuka capsule 00 total) by Center mouth daily. metOLazone Yes 2.5mg Take [address] [facility] (ZAROXOLYN) - tablet [facility] 2.5 MG 00:00: (2.5 mg Medical tablet 00 total) by Center mouth every other day. insulin Yes 25U Q.5D Inject 25 [facility] U-100 00:00: subcutaneo [facility] (LEVEMIR) 00 usly 2 Center 100 unit/mL (two) injection times daily. amLODIPine Yes 5mg QD Take 1 [facility] ([facility] 5 1-09 tablet (5 Lo es MG tablet 00:00: mg total) Med ical 00 by mouth [facility] daily. collagenase Yes Use for [facility] (S[facility] 1-09 daily [facility] units/g 00:00: dressing Me dical ointment 00 changes of Cente r foot wound.. sevelamer Yes 800mg [facility] 800 mg 00:00: (800 mg Medical tablet 00 total) by Center mouth 3 (three) times daily with meals. calcitrioL Yes .25ug QD Take [address] [facility] (ROCALTROL) 1-09 capsule [facility] 0.25 MCG 00:00: (0.25 mcg Medi renuka capsule 00 total) by Center mouth daily. metOLazone 2021-0 Yes 2.5mg Take [address] [facility] (ZAROXOLYN) 1-09 tablet [facility] 2.5 MG 00:00: (2.5 mg Medical tablet 00 total) by Center mouth every other day. insulin 2020-0 Yes 25U Q.5D Inject 25 [facility] U-100 00:00: subcutaneo Medica l (LEVEMIR) 00 usly 2 Center 100 unit/mL (two) injection times daily. amLODIPine 0 Yes 5mg QD Take 1 [facility] (NORVASC[facility] 5 1-09 tablet (5 Lo es MG tablet 00:00: mg total) Med ical 00 by mouth Center daily. collagenase Yes Use for [facility] (SANTYL) 1-09 daily [facility] 250 units/g 00:00: dressing Me dical ointment 00 changes of Cente r foot wound.. sevelamer Yes 800mg Take 1 [facility] (R[facility] 1-09 [facility] 800 mg 00:00: (800 mg Medical tablet 00 total) by Center mouth 3 (three) times daily with meals. calcitrioL Yes .25ug QD Take [address] [facility] (ROCALTROL) 1-09 capsule [facility] 0.25 MCG 00:00: (0.25 mcg Medi renuka capsule 00 total) by Center mouth daily. metOLazone Yes 2.5mg Take [address] [facility] (ZAROXOLYN) 1-09 tablet [facility] 2.5 MG 00:00: (2.5 mg Medical tablet 00 total) by Center mouth every other day. insulin 0 Yes 25U Q.5D Inject 25 [facility] U-100 00:00: subcutaneo Medica l (LEVEMIR) 00 usly 2 Center 100 unit/mL (two) injection times daily. amLODIPine 2020-0 Yes 5mg QD Take 1 [facility] (NORV[facility] 5 1-09 tablet (5 Lo es MG tablet 00:00: mg total) Med ical 00 by mouth [facility] daily. collagenase Yes Use for [facility] (SANTYL) 1-09 daily [facility] 250 units/g 00:00: dressing Me dical ointment 00 changes of Cente r foot wound.. sevelamer 0 Yes 800mg Take 1 [facility] (R[facility] 1-09 [facility] 800 mg 00:00: (800 mg Medical tablet 00 total) by Center mouth 3 (three) times daily with meals. calcitrioL Yes .25ug QD Take [address] [facility] (ROCALTROL) 1-09 capsule [facility] 0.25 MCG 00:00: (0.25 mcg Medi renuka capsule 00 total) by Center mouth daily. metOLazone 0 Yes 2.5mg Take [address] [facility] (ZAROXOLYN) 1-09 tablet [facility] 2.5 MG 00:00: (2.5 mg Medical tablet 00 total) by Center mouth every other day. insulin Yes 25U Q.5D Inject 25 [facility] U-100 00:00: subcutaneo Medica l (LEVEMIR) 00 usly 2 Center 100 unit/mL (two) injection times daily. amLODIPine Yes 5mg QD Take [facility] ([facility]VASC[facility] 5 - tablet (5 Lo es MG tablet 00:00: mg total) Med ical 00 by mouth [facility] daily. collagenase Yes Use for [facility] (SANTYL) - daily [facility] 250 units/g 00:00: dressing Me dical ointment 00 changes of Cente r foot wound.. sevelamer Yes 800mg Take 1 [facility] (RENV[facility] 1-09 [facility] 800 mg 00:00: (800 mg Medical tablet 00 total) by Center mouth 3 (three) times daily with meals. calcitrioL Yes .25ug QD Take [address] [facility] (ROCALTROL) 1-09 capsule [facility] 0.25 MCG 00:00: (0.25 mcg Medi renuka capsule 00 total) by Center mouth daily. metOLazone 0 Yes 2.5mg Take [address] [facility] (ZAROXOLYN) 1-09 tablet [facility] 2.5 MG 00:00: (2.5 mg Medical tablet 00 total) by Center mouth every other day. insulin 0 Yes 25U Q.5D Inject 25 [facility] U-100 00:00: subcutaneo Medica l (LEVEMIR) 00 usly 2 Center 100 unit/mL (two) injection times daily. amLODIPine 0 Yes 5mg QD Take 1 [facility] (NORVASC) 5 1-09 tablet (5 Lo es MG tablet 00:00: mg total) Med ical 00 by mouth [facility] daily. collagenase Yes Use for [facility] (SANTYL) 1-09 daily [facility] 250 units/g 00:00: dressing Me dical ointment 00 changes of Cente r foot wound.. sevelamer Yes 800mg Take 1 [facility] ([facility] 1-09 [facility] 800 mg 00:00: (800 mg Medical tablet 00 total) by Center mouth 3 (three) times daily with meals. calcitrioL Yes .25ug QD Take [address] [facility] (ROCALTROL) - capsule [facility] 0.25 MCG 00:00: (0.25 mcg Medi renuka capsule 00 total) by Center mouth daily. metOLazone Yes 2.5mg Take [address] [facility] (ZAROXOLYN) - tablet [facility] 2.5 MG 00:00: (2.5 mg Medical tablet 00 total) by Center mouth every other day. insulin Yes 25U Q.5D Inject 25 [facility] U-100 00:00: subcutaneo Medica l (LEVEMIR) 00 usly 2 Center 100 unit/mL (two) injection times daily. amLODIPine Yes 5mg QD Take 1 [facility] (NORVASC) 5 1-09 tablet (5 Lo es MG tablet 00:00: mg total) Med ical 00 by mouth [facility] daily. collagenase Yes Use for [facility] (SANTYL) 1-09 daily [facility] 250 units/g 00:00: dressing Me dical ointment 00 changes of Cente r foot wound.. sevelamer Yes 800mg Take 1 [facility] ([facility]ENVELA[facility] 1-09 [facility] 800 mg 00:00: (800 mg Medical tablet 00 total) by Center mouth 3 (three) times daily with meals. calcitrioL 2021-0 Yes .25ug QD Take [address] [facility] (ROCALTROL) 04-06 capsule [facility] 0.25 MCG 00:00: (0.25 mcg Medi renuka capsule 00 total) by Center mouth daily. metOLazone Yes 2.5mg Take [address] [facility] (ZAROXOLYN) 04-06 tablet [facility] 2.5 MG 00:00: (2.5 mg Medical tablet [...] [facility] (MAXIPIME) 04-06 intravenou Siddhartha kes MBP 2g in 00:00: 23:59 sly daily Me dical 100 mL NS 00 :00 for 41 Center days. doxycycline 2020- No 100mg Take [address] [facility] (MONODOX) 04-06 capsule [facility] 100 MG 00:00: 23:59 (100 mg Medical capsule 00 :00 total) by Center mouth every 12 (twelve) hours for 41 days. cefePIME 2020- No 2g Q24H Inject [address] [facility] (MAXIPIME) 04-06 intravenou Siddhartha kes MBP 2g in 00:00: 23:59 sly daily Me dical 100 mL NS 00 :00 for 41 Center days. doxycycline 2020- No 100mg Take [address] [facility] (MONODOX) 04-06 capsule [facility] 100 MG 00:00: 23:59 (100 mg Medical capsule 00 :00 total) by Center mouth every 12 (twelve) hours for 41 days. cefePIME 2020-2020- No 2g Q24H Inject [address] [facility] (MAXIPIME) 04-06 intravenou Siddhartha kes MBP 2g in 00:00: 23:59 sly daily Me dical 100 mL NS 00 :00 for 41 Center days. doxycycline 2020-2020- No 100mg Take [address] [facility] (MONODOX) 04-06 capsule [facility] 100 MG 00:00: 23:59 (100 mg Medical capsule 00 :00 total) by Center mouth every 12 (twelve) hours for 41 days. cefePIME 2020- No 2g Q24H Inject [address] [facility] (MAXIPIME) 04-06 intravenou Siddhartha kes MBP 2g in 00:00: 23:59 sly daily Me dical 100 mL NS 00 :00 for 41 Center days. doxycycline 2020- No 100mg Take [address] [facility] (MONODOX) 04-06 capsule [facility] 100 MG 00:00: 23:59 (100 mg Medical capsule 00 :00 total) by Center mouth every 12 (twelve) hours for 41 days. cefePIME 2020- No 2g Q24H Inject [address] [facility] (MAXIPIME) 04-06 intravenou Siddhartha kes MBP 2g in 00:00: 23:59 sly daily Me dical 100 mL NS 00 :00 for 41 Center days. doxycycline 2020- No 100mg Take [address] [facility] (MONODOX) 04-06 capsule [facility] 100 MG 00:00: 23:59 (100 mg Medical capsule 00 :00 total) by Center mouth every 12 (twelve) hours for 41 days. cefePIME 2020- No 2g Q24H Inject [address] [facility] (MAXIPIME) 04-06 intravenou Siddhartha kes MBP 2g in 00:00: 23:59 sly daily Me dical 100 mL NS 00 :00 for 41 Center days. doxycycline 2020- No 100mg Take [address] [facility] (MONODOX) 04-06 capsule [facility] 100 MG 00:00: 23:59 (100 mg Medical capsule 00 :00 total) by Center mouth every 12 (twelve) hours for 41 days. cefePIME 2020- No 2g Q24H Inject [address] [facility] (MAXIPIME) 04-06 intravenou Siddhartha kes MBP 2g in 00:00: 23:59 sly daily Me dical 100 mL NS 00 :00 for 41 Center days. doxycycline 2020- No 100mg Take [address] [facility] (MONODOX) 04-06 capsule [facility] 100 MG 00:00: 23:59 (100 mg Medical capsule 00 :00 total) by Center mouth every 12 (twelve) hours for 41 days. traMADoL 2019-03 No 50mg Take [address] [facility] (ULTRAM) 50 05-21 tablet (50 [facility] mg tablet 00:00: 00:00 mg total) Me dical 00 :00 by mouth Center every 6 (six) hours as needed for Pain for up to 10 days. Max Daily Amount: 200 mg traMADoL 2019-03 No 50mg Take [address] [facility] (ULTRAM) 50 05-21 tablet (50 [facility] mg tablet 00:00: 00:00 mg total) Me dical 00 :00 by mouth Center every 6 (six) hours as needed for Pain for up to 10 days. Max Daily Amount: 200 mg traMADoL 2019-03 No 50mg Take [address] [facility] (ULTRAM) 50 05-21 tablet (50 [facility] mg tablet 00:00: 00:00 mg total) Me dical 00 :00 by mouth Center every 6 (six) hours as needed for Pain for up to 10 days. Max Daily Amount: 200 mg traMADoL 2019-03 No 50mg Take [address] [facility] (ULTRAM) 50 05-21 tablet (50 [facility] mg tablet 00:00: 00:00 mg total) Me dical 00 :00 by mouth Center every 6 (six) hours as needed for Pain for up to 10 days. Max Daily Amount: 200 mg traMADoL 2019-03 No 50mg Take [address] [facility] (ULTRAM) 50 05-21 tablet (50 [facility] mg tablet 00:00: 00:00 mg total) Me dical 00 :00 by mouth Center every 6 (six) hours as needed for Pain for up to 10 days. Max Daily Amount: 200 mg traMADoL 2019-03 No 50mg Take [address] [facility] (ULTRAM) 50 05-21 tablet (50 [facility] mg tablet 00:00: 00:00 mg total) Me dical 00 :00 by mouth Center every 6 (six) hours as needed for Pain for up to 10 days. Max Daily Amount: 200 mg traMADoL 2020-1 2021- No 50mg Take [address] [facility] (ULTRAM) 50 05-21 tablet (50 [facility] mg tablet 00:00: 00:00 mg total) Me dical 00 :00 by mouth Center every 6 (six) hours as needed for Pain for up to 10 days. Max Daily Amount: 200 mg clindamycin 2019-03- No 300mg [id number] Take [address] [facility] (CLEOCIN) 05-21 [id number] capsule [facility] 300 MG 00:00: 23:59 3D (300 mg Medical capsule 00 :00 total) by Center mouth 3 (three) times daily for 7 days. clindamycin 2019-03- No 300mg Q.[id number] Take [address] [facility] (CLEOCIN) 05-21 [id number] capsule [facility] 300 MG 00:00: 23:59 3D (300 mg Medical capsule 00 :00 total) by Center mouth 3 (three) times daily for 7 days. clindamycin 2019-03- No 300mg Q.[id number] Take [address] [facility] (CLEOCIN) 05-21 [id number] capsule [facility] 300 MG 00:00: 23:59 3D (300 mg Medical capsule 00 :00 total) by Center mouth 3 (three) times daily for 7 days. clindamycin 2019-03- No 300mg Q.[id number] Take [address] [facility] (CLEOCIN) 05-21 [id number] capsule [facility] 300 MG 00:00: 23:59 3D (300 mg Medical capsule 00 :00 total) by Center mouth 3 (three) times daily for 7 days. clindamycin 2019-03- No 300mg Q.[id number] Take [address] [facility] (CLEOCIN) 05-21 [id number] capsule [facility] 300 MG 00:00: 23:59 3D (300 mg Medical capsule 00 :00 total) by Center mouth 3 (three) times daily for 7 days. clindamycin 2019-03- No 300mg Q.[id number] Take [address] [facility] (CLEOCIN) 05-21 [id number] capsule [facility] 300 MG 00:00: 23:59 3D (300 mg Medical capsule 00 :00 total) by Center mouth 3 (three) times daily for 7 days. clindamycin 2020-1 2020- No 300mg Q.[id number] Take [address] [facility] (CLEOCIN) 2 1230 [id number] capsule [facility] 300 MG 00:00: 23:59 3D (300 mg Medical capsule 00 :00 total) by Center mouth 3 (three) times daily for 7 days. gabapentin 2019-03 Yes Take by [facility] (NEURONTIN) 2-09 mouth. [facility] 800 MG 00:00: Medical tablet 00 [place] lisinopriL 2019-03 Yes [facility] (PRINIV[facility],Z 2-09 tablet (40 Siddhartha kes ESTRIL) 40 00:00: mg) by Medic al MG tablet 00 oral route Cent er once daily gabapentin 2019-03 Yes Take by [facility] (NEURONTIN) 2-09 mouth. [facility] 800 MG 00:00: Medical tablet 00 [place] lisinopriL 2019-03 Yes take [facility] (PRINIVIL,Z 2-09 tablet (40 Siddhartha kes ESTRIL) 40 00:00: mg) by Medic al MG tablet 00 oral route Cent er once daily gabapentin 2019-03 Yes Take by [facility] (NEURONTIN) 2-09 mouth. [facility] 800 MG 00:00: Medical tablet 00 [place] lisinopriL 2019-03 Yes take 1 [facility] (PRINIVIL,Z 2-09 tablet (40 Siddhartha kes ESTRIL) 40 00:00: mg) by Medic al MG tablet 00 oral route Cent er once daily gabapentin 2019-03 Yes Take by [facility] (NEURONTIN) 2-09 mouth. [facility] 800 MG 00:00: Medical tablet 00 [place] lisinopriL 2019-03 Yes take 1 [facility] (PRINIVIL,Z 2-09 tablet (40 Siddhartha kes ESTRIL) 40 00:00: mg) by Medic al MG tablet 00 oral route Cent er once daily gabapentin 2019-03 Yes Take by [facility] (NEURONTIN) 2-09 mouth. [facility] 800 MG 00:00: Medical tablet 00 [place] lisinopriL 2019-03 Yes take 1 [facility] (PRINIVIL,Z 2-09 tablet (40 Siddhartha kes ESTRIL) 40 00:00: mg) by Medic al MG tablet 00 oral route Cent er once daily gabapentin 2019-03 Yes Take by [facility] (NEURONTIN) 2-09 mouth. [facility] 800 MG 00:00: Medical tablet 00 [place] lisinopriL 2019-03 Yes take 1 [facility] (PRINIVIL,Z 2-09 tablet (40 Siddhartha kes ESTRIL) 40 00:00: mg) by Medic al MG tablet 00 oral route Cent er once daily gabapentin 2019-03 Yes Take by [facility] (NEURONTIN) 2-09 mouth. [facility] 800 MG 00:00: Medical tablet 00 [place] lisinopriL 2019-03 Yes take 1 [facility] (PRINIVIL,Z 2-09 tablet (40 Siddhartha kes ESTRIL) 40 00:00: mg) by Medic al MG tablet 00 oral route Cent er once daily bumetanide 2019-03 No take 1 [facility] 1 mg tablet 2-09 tablet (1 eal th 00:00: mg) by 00 oral route 2 times per day amlodipine 2019-03 No take 1 [facility] 5 mg tablet 2-09 tablet (5 eal th 00:00: mg) by 00 oral route once daily atorvastati 2019-03 No take 1 [facility] n 80 mg 2-09 tablet by ealth tablet 00:00: Oral route 00 1 time per day carvedilol 2019-03 No take 1 [facility] 25 mg 2-09 tablet (25 ealth tablet 00:00: mg) by 00 oral route 2 times per day with food clopidogrel 2019-03 No take 1 [facility] 75 mg 2-09 tablet (75 ealth tablet 00:00: mg) by 00 oral route once daily gabapentin 2019-03 No 1{table Q8H take 1 [facility] 800 mg 2-09 t} tablet by ealth tablet 00:00: oral route 00 3 times every day Humalog 2019-03 No inject kit=boxes [facility] KwikPen 2-09 5-10 Units ealth (U-100) 00:00: by Insulin 100 00 Subcutaneo unit/mL us route 3 subcutaneou times per s day on a sliding scale three times a day before meals isosorbide 2019-03 No take 1 [facility] mononitrate 2-09 tablet (60 ea lth ER 60 mg 00:00: mg) by tablet,exte 00 oral route nded once daily release 24 in the hr morning Levemir 2019-03 No inject 50 kit=boxes [facility] FlexTouch 2-09 Units by for 3 ealth U-100 00:00: Subcutaneo month Insulin 100 00 us route 2 supply unit/mL (3 times per mL) day in the subcutaneou morning s pen and evening bumetanide 2019-03 No take 1 [facility] 1 mg tablet 2-09 tablet (1 eal th 00:00: mg) by 00 oral route 2 times per day amlodipine 2019-03 No take 1 [facility] 5 mg tablet 2-09 tablet (5 eal th 00:00: mg) by 00 oral route once daily atorvastati 2019-03 No take 1 [facility] n 80 mg 2-09 tablet by ealth tablet 00:00: Oral route 00 1 time per day carvedilol 2019-03 No take 1 [facility] 25 mg 2-09 tablet (25 ealth tablet 00:00: mg) by 00 oral route 2 times per day with food clopidogrel 2019-03 No take 1 [facility] 75 mg 2-09 tablet (75 ealth tablet 00:00: mg) by 00 oral route once daily gabapentin 2019-03 No 1{table Q8H take 1 [facility] 800 mg 2-09 t} tablet by ealth tablet 00:00: oral route 00 3 times every day Humalog 2019-03 No inject kit=boxes [facility] KwikPen 2-09 5-10 Units ealth (U-100) 00:00: by Insulin 100 00 Subcutaneo unit/mL us route 3 subcutaneou times per s day on a sliding scale three times a day before meals isosorbide 2019-03 No take 1 [facility] mononitrate 2-09 tablet (60 ea lth ER 60 mg 00:00: mg) by tablet,exte 00 oral route nded once daily release 24 in the hr morning Levemir 2019-03 No inject 50 kit=boxes [facility] FlexTouch 2-09 Units by for 3 ealth U-100 00:00: Subcutaneo month Insulin 100 00 us route 2 supply unit/mL (3 times per mL) day in the subcutaneou morning s pen and evening bumetanide 2019-03 No take 1 [facility] 1 mg tablet 2-09 tablet (1 eal th 00:00: mg) by 00 oral route 2 times per day metolazone 2019-03 No take 1 [facility] 5 mg tablet 2-09 tablet (5 eal th 00:00: mg) by 00 oral route once daily amlodipine 2019-03 No take 1 [facility] 5 mg tablet 2-09 tablet (5 eal th 00:00: mg) by 00 oral route once daily atorvastati 2019-03 No take 1 [facility] n 80 mg 2-09 tablet by ealth tablet 00:00: Oral route 00 1 time per day carvedilol 2019-03 No take 1 [facility] 25 mg 2-09 tablet (25 ealth tablet 00:00: mg) by 00 oral route 2 times per day with food clopidogrel 2019-03 No take 1 [facility] 75 mg 2-09 tablet (75 ealth tablet 00:00: mg) by 00 oral route once daily gabapentin 2019-03 No 1{table Q8H take 1 [facility] 800 mg 2-09 t} tablet by ealth tablet 00:00: oral route 00 3 times every day Humalog 2019-03 No inject kit=boxes [facility] KwikPen 2-09 5-10 Units ealth (U-100) 00:00: by Insulin 100 00 Subcutaneo unit/mL us route 3 subcutaneou times per s day on a sliding scale three times a day before meals isosorbide 2019-03 No take 1 [facility] mononitrate 2-09 tablet (60 ea lth ER 60 mg 00:00: mg) by tablet,exte 00 oral route nded once daily release 24 in the hr morning Levemir 2019-03 No inject 50 kit=boxes [facility] FlexTouch 2-09 Units by for 3 ealth U-100 00:00: Subcutaneo month Insulin 100 00 us route 2 supply unit/mL (3 times per mL) day in the subcutaneou morning s pen and evening lisinopril 2019-03 No take 1 [facility] 40 mg 2-09 tablet (40 ealth tablet 00:00: mg) by 00 oral route once daily bumetanide 2019-03 No take 1 [facility] 1 mg tablet 2-09 tablet (1 eal th 00:00: mg) by 00 oral route 2 times per day metolazone 2019-03 No take 1 [facility] 5 mg tablet 2-09 tablet (5 eal th 00:00: mg) by 00 oral route once daily amlodipine 2019-03 No take 1 [facility] 5 mg tablet 2-09 tablet (5 eal th 00:00: mg) by 00 oral route once daily atorvastati 2019-03 No take 1 [facility] n 80 mg 2-09 tablet by ealth tablet 00:00: Oral route 00 1 time per day carvedilol 2019-03 No take 1 [facility] 25 mg 2-09 tablet (25 ealth tablet 00:00: mg) by 00 oral route 2 times per day with food clopidogrel 2019-03 No take 1 [facility] 75 mg 2-09 tablet (75 e[facility] tablet 00:00: mg) by 00 oral route once daily gabapentin 2019-03 No 1{table Q8H take 1 [facility] 800 mg 2-09 t} tablet by ealth tablet 00:00: oral route 00 3 times every day Humalog 2019-03 No inject kit=boxes [facility] KwikPen 2-09 5-10 Units ealth (U-100) 00:00: by Insulin 100 00 Subcutaneo unit/mL us route 3 subcutaneou times per s day on a sliding scale three times a day before meals isosorbide 2019-03 No take 1 [facility] mononitrate 2-09 tablet (60 ea lth ER 60 mg 00:00: mg) by tablet,exte 00 oral route nded once daily release 24 in the hr morning Levemir 2019-03 No inject 50 kit=boxes [facility] FlexTouch 2-09 Units by for 3 ealth U-100 00:00: Subcutaneo month Insulin 100 00 us route 2 supply unit/mL (3 times per mL) day in the subcutaneou morning s pen and evening lisinopril 2019-03 No take 1 [facility] 40 mg 2-09 tablet (40 ealth tablet 00:00: mg) by 00 oral route once daily bumetanide 2019-03 No take 1 [facility] 1 mg tablet 2-09 tablet (1 eal th 00:00: mg) by 00 oral route 2 times per day amlodipine 2019-03 No take 1 [facility] 5 mg tablet 2-09 tablet (5 eal th 00:00: mg) by 00 oral route once daily atorvastati 2019-03 No take 1 [facility] n 80 mg 2-09 tablet by ealth tablet 00:00: Oral route 00 1 time per day carvedilol 2019-03 No take 1 [facility] 25 mg 2-09 tablet (25 ealth tablet 00:00: mg) by 00 oral route 2 times per day with food clopidogrel 2019-03 No take 1 [facility] 75 mg 2-09 tablet (75 ealth tablet 00:00: mg) by 00 oral route once daily gabapentin 2019-03 No 1{table Q8H take 1 [facility] 800 mg 2-09 t} tablet by ealth tablet 00:00: oral route 00 3 times every day Humalog 2019-03 No inject kit=boxes [facility] KwikPen 2-09 5-10 Units ealth (U-100) 00:00: by Insulin 100 00 Subcutaneo unit/mL us route 3 subcutaneou times per s day on a sliding scale three times a day before meals isosorbide 2019-03 No take 1 [facility] mononitrate 2-09 tablet (60 ea lth ER 60 mg 00:00: mg) by tablet,exte 00 oral route nded once daily release 24 in the hr morning Levemir 2019-03 No inject 50 kit=boxes [facility] FlexTouch 2-09 Units by for 3 ealth U-100 00:00: Subcutaneo month Insulin 100 00 us route 2 supply unit/mL (3 times per mL) day in the subcutaneou morning s pen and evening bumetanide 2019-03 No take 1 [facility] 1 mg tablet 2-09 tablet (1 eal th 00:00: mg) by 00 oral route 2 times per day amlodipine 2019-03 No take 1 [facility] 5 mg tablet 2-09 tablet (5 eal th 00:00: mg) by 00 oral route once daily atorvastati 2019-03 No take 1 [facility] n 80 mg 2-09 tablet by ealth tablet 00:00: Oral route 00 1 time per day carvedilol 2019-03 No take 1 [facility] 25 mg 2-09 tablet (25 ealth tablet 00:00: mg) by 00 oral route 2 times per day with food clopidogrel 2019-03 No take 1 [facility] 75 mg 2-09 tablet (75 ealth tablet 00:00: mg) by 00 oral route once daily gabapentin 2019-03 No 1{table Q8H take 1 [facility] 800 mg 2-09 t} tablet by ealth tablet 00:00: oral route 00 3 times every day Humalog 2019-03 No inject kit=boxes [facility] KwikPen 2-09 5-10 Units ealth (U-100) 00:00: by Insulin 100 00 Subcutaneo unit/mL us route 3 subcutaneou times per s day on a sliding scale three times a day before meals isosorbide 2019-03 No take 1 [facility] mononitrate 2-09 tablet (60 ea lth ER 60 mg 00:00: mg) by tablet,exte 00 oral route nded once daily release 24 in the hr morning Levemir 2019-03 No inject 50 kit=boxes [facility] FlexTouch 2-09 Units by for 3 ealth U-100 00:00: Subcutaneo month Insulin 100 00 us route 2 supply unit/mL (3 times per mL) day in the subcutaneou morning s pen and evening amlodipine 2019-03- No take 1 [facility] 5 mg tablet 05-07 tablet (5 ea lth 00:00: 00:00 mg) by 00 :00 oral route once daily atorvastati 2019-03- No take 1 [facility] n 80 mg 05-07- tablet by ealth tablet 00:00: 00:00 Oral route 00 :00 1 time per day carvedilol 2019-03- No take 1 [facility] 25 mg 05-07- tablet (25 ealth tablet 00:00: 00:00 mg) by 00 :00 oral route 2 times per day with food clopidogrel 2019-03- No take 1 [facility] 75 mg 05-07-08 tablet (75 ealth tablet 00:00: 00:00 mg) by 00 :00 oral route once daily gabapentin 2019-03- No 1{table Q8H take 1 [facility] 800 mg 2-11 30-08 t} tablet by ealth tablet 00:00: 00:00 oral route 00 :00 3 times every day Humalog 2019-03- No inject kit=boxes [facility] KwikPen 05-07 5-10 Units ealth (U-100) 00:00: 00:00 by Insulin 100 00 :00 Subcutaneo unit/mL us route 3 subcutaneou times per s day on a sliding scale three times a day before meals isosorbide 2019-03- No take 1 [facility] mononitrate 05-07 tablet (60 e alth ER 60 mg 00:00: 00:00 mg) by tablet,exte 00 :00 oral route nded once daily release 24 in the hr morning Levemir 2019-03- No inject 50 kit=boxes [facility] FlexTouch 05-07 Units by for 3 ealt h U-100 00:00: 00:00 Subcutaneo month Insulin 100 00 :00 us route 2 supply unit/mL (3 times per mL) day in the subcutaneou morning s pen and evening amlodipine 2019-03- No take 1 [facility] 5 mg tablet 05-07 tablet (5 ea lth 00:00: 00:00 mg) by 00 :00 oral route once daily atorvastati 2019-03- No take 1 [facility] n 80 mg 05-07 tablet by ealth tablet 00:00: 00:00 Oral route 00 :00 1 time per day carvedilol 2019-03- No take 1 [facility] 25 mg 05-07 tablet (25 ealth tablet 00:00: 00:00 mg) by 00 :00 oral route 2 times per day with food clopidogrel 2019-03- No take 1 [facility] 75 mg 05-07 tablet (75 ealth tablet 00:00: 00:00 mg) by 00 :00 oral route once daily gabapentin 2019-03- No 1{table Q8H take 1 [facility] 800 mg 05-07 t} tablet by ealth tablet 00:00: 00:00 oral route 00 :00 3 times every day Humalog 2019-03- No inject kit=boxes [facility] KwikPen 05-07 5-10 Units ealth (U-100) 00:00: 00:00 by Insulin 100 00 :00 Subcutaneo unit/mL us route 3 subcutaneou times per s day on a sliding scale three times a day before meals isosorbide 2019-03- No take 1 [facility] mononitrate 05-07 tablet (60 e alth ER 60 mg 00:00: 00:00 mg) by tablet,exte 00 :00 oral route nded once daily release 24 in the hr morning Levemir 2019-03 No inject 50 kit=boxes [facility] FlexTouch 05-07 Units by for 3 ealt h U-100 00:00: 00:00 Subcutaneo month Insulin 100 00 :00 us route 2 supply unit/mL (3 times per mL) day in the subcutaneou morning s pen and evening amlodipine 2019-03 take 1 [facility] 5 mg tablet 05-07 tablet (5 ea lth 00:00: 00:00 mg) by 00 :00 oral route once daily atorvastati 2019-03- No take 1 [facility] n 80 mg 05-07 tablet by ealth tablet 00:00: 00:00 Oral route 00 :00 1 time per day carvedilol 2019-03- No take 1 [facility] 25 mg 05-07 tablet (25 ealth tablet 00:00: 00:00 mg) by 00 :00 oral route 2 times per day with food clopidogrel 2019-03 No take 1 [facility] 75 mg 05-07 tablet (75 ealth tablet 00:00: 00:00 mg) by 00 :00 oral route once daily gabapentin 2019-03- No 1{table Q8H take 1 [facility] 800 mg 05-07 t} tablet by ealth tablet 00:00: 00:00 oral route 00 :00 3 times every day Humalog 2019-03- No inject kit=boxes [facility] KwikPen 05-07 5-10 Units ealth (U-100) 00:00: 00:00 by Insulin 100 00 :00 Subcutaneo unit/mL us route 3 subcutaneou times per s day on a sliding scale three times a day before meals isosorbide 2019-03- No take 1 [facility] mononitrate 05-07 tablet (60 e alth ER 60 mg 00:00: 00:00 mg) by tablet,exte 00 :00 oral route nded once daily release 24 in the hr morning Levemir 2019-03- No inject 50 kit=boxes [facility] FlexTouch 05-07 Units by for 3 ealt h U-100 00:00: 00:00 Subcutaneo month Insulin 100 00 :00 us route 2 supply unit/mL (3 times per mL) day in the subcutaneou morning s pen and evening amlodipine 2019-03- No take 1 [facility] 5 mg tablet 05-07 tablet (5 ea lth 00:00: 00:00 mg) by 00 :00 oral route once daily atorvastati 2019-03- No take 1 [facility] ess[facility] n 80 mg 05-07 tablet by ealth tablet 00:00: 00:00 Oral route 00 :00 1 time per day carvedilol 2019-03- No take 1 [facility] 25 mg 05-07 tablet (25 ealth tablet 00:00: 00:00 mg) by 00 :00 oral route 2 times per day with food clopidogrel 2019-03- No take 1 Acc ess[facility] 75 mg 05-07 tablet (75 ealth tablet 00:00: 00:00 mg) by 00 :00 oral route once daily gabapentin 2019-03- No 1{table Q8H take 1 A ccessH 800 mg 05-07 t} tablet by ealth tablet 00:00: 00:00 oral route 00 :00 3 times every day Humalog 2019-03- No inject kit=boxes Ac cessH KwikPen 05-07 5-10 Units ealth (U-100) 00:00: 00:00 by Insulin 100 00 :00 Subcutaneo unit/mL us route 3 subcutaneou times per s day on a sliding scale three times a day before meals isosorbide 2019-03- No take 1 [facility] mononitrate 05-07 tablet (60 e alth ER 60 mg 00:00: 00:00 mg) by tablet,exte 00 :00 oral route nded once daily release 24 in the hr morning Levemir 2019-03- No inject 50 kit=boxes [facility] FlexTouch 05-07 Units by for 3 ealt h U-100 00:00: 00:00 Subcutaneo month Insulin 100 00 :00 us route 2 supply unit/mL (3 times per mL) day in the subcutaneou morning s pen and evening amlodipine 2019-03- No take 1 [facility] 5 mg tablet 05-07 tablet (5 ea lth 00:00: 00:00 mg) by 00 :00 oral route once daily atorvastati 2019-03- No take 1 [facility] ess[facility] n 80 mg 05-07 tablet by ealth tablet 00:00: 00:00 Oral route 00 :00 1 time per day carvedilol 2019-03- No take 1 [facility] 25 mg 05-07 tablet (25 ealth tablet 00:00: 00:00 mg) by 00 :00 oral route 2 times per day with food clopidogrel 2019-03- No take 1 Acc ess[facility] 75 mg 05-07 tablet (75 ealth tablet 00:00: 00:00 mg) by 00 :00 oral route once daily gabapentin 2019-03- No 1{table Q8H take 1 A ccessH 800 mg 05-07 t} tablet by ealth tablet 00:00: 00:00 oral route 00 :00 3 times every day Humalog 2019-03- No inject kit=boxes Ac cess[facility] KwikPen 05-07 5-10 Units ealth (U-100) 00:00: 00:00 by Insulin 100 00 :00 Subcutaneo unit/mL us route 3 subcutaneou times per s day on a sliding scale three times a day before meals isosorbide 2019-03- No take 1 [facility] mononitrate 05-07 tablet (60 e alth ER 60 mg 00:00: 00:00 mg) by tablet,exte 00 :00 oral route nded once daily release 24 in the hr morning Levemir 2019-03- No inject 50 kit=boxes [facility] FlexTouch 05-07 Units by for 3 ealt h U-100 00:00: 00:00 Subcutaneo month Insulin 100 00 :00 us route 2 supply unit/mL (3 times per mL) day in the subcutaneou morning s pen and evening amlodipine 2019-03- No take 1 [facility] 5 mg tablet 05-07 tablet (5 ea lth 00:00: 00:00 mg) by 00 :00 oral route once daily atorvastati 2019-03- No take 1 [facility] n 80 mg 05-07 tablet by ealth tablet 00:00: 00:00 Oral route 00 :00 1 time per day carvedilol 2019-03- No take 1 [facility] 25 mg 05-07 tablet (25 ealth tablet 00:00: 00:00 mg) by 00 :00 oral route 2 times per day with food clopidogrel 2019-03- No take 1 Acc ess[facility] 75 mg 05-07 tablet (75 ealth tablet 00:00: 00:00 mg) by 00 :00 oral route once daily gabapentin 2019-03- No 1{table Q8H take 1 A ccess[facility] 800 mg 05-07 t} tablet by ealth tablet 00:00: 00:00 oral route 00 :00 3 times every day Humalog 2019-03- No inject kit=boxes Ac cess[facility] KwikPen 05-07 5-10 Units ealth (U-100) 00:00: 00:00 by Insulin 100 00 :00 Subcutaneo unit/mL us route 3 subcutaneou times per s day on a sliding scale three times a day before meals isosorbide 2019-03- No take 1 [facility] mononitrate 05-07 tablet (60 e alth ER 60 mg 00:00: 00:00 mg) by tablet,exte 00 :00 oral route nded once daily release 24 in the hr morning Levemir 2019-03- No inject 50 kit=boxes [facility] FlexTouch 05-07 Units by for 3 ealt h U-100 00:00: 00:00 Subcutaneo month Insulin 100 00 :00 us route 2 supply unit/mL (3 times per mL) day in the subcutaneou morning s pen and evening amlodipine 2019-03- No take 1 [facility] 5 mg tablet 05-07 tablet (5 ea lth 00:00: 00:00 mg) by 00 :00 oral route once daily atorvastati 2019-03- No take 1 [facility] n 80 mg 05-07 tablet by ealth tablet 00:00: 00:00 Oral route 00 :00 1 time per day carvedilol 2019-03- No take 1 [facility] 25 mg 05-07 tablet (25 ealth tablet 00:00: 00:00 mg) by 00 :00 oral route 2 times per day with food clopidogrel 2019-03- No take 1 [facility] 75 mg 05-07 tablet (75 ealth tablet 00:00: 00:00 mg) by 00 :00 oral route once daily gabapentin 2019-03- No 1{table Q8H take 1 A ccess[facility] 800 mg 05-07 t} tablet by ealth tablet 00:00: 00:00 oral route 00 :00 3 times every day Humalog 2019-03- No inject kit=boxes Ac cess[facility] KwikPen 05-07 5-10 Units ealth (U-100) 00:00: 00:00 by Insulin 100 00 :00 Subcutaneo unit/mL us route 3 subcutaneou times per s day on a sliding scale three times a day before meals isosorbide 2019-03- No take 1 [facility] mononitrate 05-07 tablet (60 e alth ER 60 mg 00:00: 00:00 mg) by tablet,exte 00 :00 oral route nded once daily release 24 in the hr morning Levemir 2019-03- No inject 50 kit=boxes [facility] FlexTouch 05-07 Units by for 3 ealt h U-100 00:00: 00:00 Subcutaneo month Insulin 100 00 :00 us route 2 supply unit/mL (3 times per mL) day in the subcutaneou morning s pen and evening amlodipine 2019-03 No take 1 [facility] 5 mg tablet 05-07 tablet (5 ea lth 00:00: 00:00 mg) by 00 :00 oral route once daily atorvastati 2019-03- No take 1 [facility] n 80 mg 05-07 tablet by ealth tablet 00:00: 00:00 Oral route 00 :00 1 time per day carvedilol 2019-03- No take 1 [facility] 25 mg 05-07 tablet (25 ealth tablet 00:00: 00:00 mg) by 00 :00 oral route 2 times per day with food clopidogrel 2019-03 No take 1 [facility] 75 mg 05-07 tablet (75 ealth tablet 00:00: 00:00 mg) by 00 :00 oral route once daily gabapentin 2019-03- No 1{table Q8H take 1 A ccess[facility] 800 mg 05-07 t} tablet by ealth tablet 00:00: 00:00 oral route 00 :00 3 times every day Humalog 2019-03- inject kit=boxes Ac cess[facility] KwikPen 05-07 5-10 Units ealth (U-100) 00:00: 00:00 by Insulin 100 00 :00 Subcutaneo unit/mL us route 3 subcutaneou times per s day on a sliding scale three times a day before meals isosorbide 2019-03- No take 1 [facility] mononitrate 05-07 tablet (60 e alth ER 60 mg 00:00: 00:00 mg) by tablet,exte 00 :00 oral route nded once daily release 24 in the hr morning Levemir 2019-03 No inject 50 kit=boxes [facility] FlexTouch 05-07 Units by for 3 ealt h U-100 00:00: 00:00 Subcutaneo month Insulin 100 00 :00 us route 2 supply unit/mL (3 times per mL) day in the subcutaneou morning s pen and evening amlodipine 2019-03- No take 1 [facility] 5 mg tablet 05-07 tablet (5 ea lth 00:00: 00:00 mg) by 00 :00 oral route once daily atorvastati 2019-03- No take 1 [facility] n 80 mg 05-07 tablet by ealth tablet 00:00: 00:00 Oral route 00 :00 1 time per day carvedilol 2019-03- No take 1 [facility] 25 mg 05-07 tablet (25 ealth tablet 00:00: 00:00 mg) by 00 :00 oral route 2 times per day with food clopidogrel 2019-03- No take 1 Acc [facility] 75 mg 05-07 tablet (75 ealth tablet 00:00: 00:00 mg) by 00 :00 oral route once daily gabapentin 2019-03- No 1{table Q8H take 1 A ccessH 800 mg 05-07 t} tablet by ealth tablet 00:00: 00:00 oral route 00 :00 3 times every day Humalog 2019-03 inject kit=boxes Ac cess[facility] KwikPen 05-07 5-10 Units ealth (U-100) 00:00: 00:00 by Insulin 100 00 :00 Subcutaneo unit/mL us route 3 subcutaneou times per s day on a sliding scale three times a day before meals isosorbide 2019-03- No take 1 [facility] mononitrate 05-07 tablet (60 e alth ER 60 mg 00:00: 00:00 mg) by tablet,exte 00 :00 oral route nded once daily release 24 in the hr morning Levemir 2019-03 No inject 50 kit=boxes [facility] FlexTouch 05-07 Units by for 3 ealt h U-100 00:00: 00:00 Subcutaneo month Insulin 100 00 :00 us route 2 supply unit/mL (3 times per mL) day in the subcutaneou morning s pen and evening amlodipine 2019-03 No take 1 [facility] 5 mg tablet 05-07 tablet (5 ea lth 00:00: 00:00 mg) by 00 :00 oral route once daily atorvastati 2019-03- No take 1 [facility] n 80 mg 05-07 tablet by ealth tablet 00:00: 00:00 Oral route 00 :00 1 time per day carvedilol 2019-03- No take 1 [facility] 25 mg 05-07 tablet (25 ealth tablet 00:00: 00:00 mg) by 00 :00 oral route 2 times per day with food clopidogrel 2019-03- No take 1 [facility] 75 mg 05-07 tablet (75 ealth tablet 00:00: 00:00 mg) by 00 :00 oral route once daily gabapentin 2019-03- No 1{table Q8H take 1 A ccess[facility] 800 mg 05-07 t} tablet by ealth tablet 00:00: 00:00 oral route 00 :00 3 times every day Humalog 2019-03- inject kit=boxes Ac cess[facility] KwikPen 05-07 5-10 Units ealth (U-100) 00:00: 00:00 by Insulin 100 00 :00 Subcutaneo unit/mL us route 3 subcutaneou times per s day on a sliding scale three times a day before meals isosorbide 2019-03- No take 1 [facility] mononitrate 05-07 tablet (60 e alth ER 60 mg 00:00: 00:00 mg) by tablet,exte 00 :00 oral route nded once daily release 24 in the hr morning Levemir 2019-03- No inject 50 kit=boxes [facility] FlexTouch 05-07 Units by for 3 ealt h U-100 00:00: 00:00 Subcutaneo month Insulin 100 00 :00 us route 2 supply unit/mL (3 times per mL) day in the subcutaneou morning s pen and evening amlodipine 2019-03- No take 1 [facility] 5 mg tablet 05-07 tablet (5 ea lth 00:00: 00:00 mg) by 00 :00 oral route once daily atorvastati 2019-03- No take 1 [facility] n 80 mg 05-07 tablet by ealth tablet 00:00: 00:00 Oral route 00 :00 1 time per day carvedilol 2019-03- No take 1 [facility] 25 mg 05-07 tablet (25 ealth tablet 00:00: 00:00 mg) by 00 :00 oral route 2 times per day with food clopidogrel 2019-03- No take 1 Acc [facility] 75 mg 05-07 tablet (75 ealth tablet 00:00: 00:00 mg) by 00 :00 oral route once daily gabapentin 2019-03- No 1{table Q8H take 1 A ccess[facility] 800 mg 05-07 t} tablet by ealth tablet 00:00: 00:00 oral route 00 :00 3 times every day Humalog 2019-03- inject kit=boxes Ac cess[facility] KwikPen 05-07 5-10 Units ealth (U-100) 00:00: 00:00 by Insulin 100 00 :00 Subcutaneo unit/mL us route 3 subcutaneou times per s day on a sliding scale three times a day before meals isosorbide 2019-03- No take 1 [facility] mononitrate 05-07 tablet (60 e alth ER 60 mg 00:00: 00:00 mg) by tablet,exte 00 :00 oral route nded once daily release 24 in the hr morning Levemir 2019-03 No inject 50 kit=boxes [facility] FlexTouch 05-07 Units by for 3 ealt h U-100 00:00: 00:00 Subcutaneo month Insulin 100 00 :00 us route 2 supply unit/mL (3 times per mL) day in the subcutaneou morning s pen and evening amlodipine 2019-03- No take 1 [facility] 5 mg tablet 05-07 tablet (5 ea lth 00:00: 00:00 mg) by 00 :00 oral route once daily atorvastati 2019-03- No take 1 Acc [facility] n 80 mg 05-07 tablet by ealth tablet 00:00: 00:00 Oral route 00 :00 1 time per day carvedilol 2019-03- No take 1 [facility] 25 mg 05-07 tablet (25 ealth tablet 00:00: 00:00 mg) by 00 :00 oral route 2 times per day with food clopidogrel 2019-03 No take 1 [facility] ess[facility] 75 mg 05-07 tablet (75 ealth tablet 00:00: 00:00 mg) by 00 :00 oral route once daily gabapentin 2019-03- No 1{table Q8H take 1 A ccess[facility] 800 mg 05-07 t} tablet by ealth tablet 00:00: 00:00 oral route 00 :00 3 times every day Humalog 2019-03 inject kit=boxes Ac cess[facility] KwikPen 05-07 5-10 Units ealth (U-100) 00:00: 00:00 by Insulin 100 00 :00 Subcutaneo unit/mL us route 3 subcutaneou times per s day on a sliding scale three times a day before meals isosorbide 2019-03 No take 1 [facility] mononitrate 05-07 tablet (60 e alth ER 60 mg 00:00: 00:00 mg) by tablet,exte 00 :00 oral route nded once daily release 24 in the hr morning Levemir 2019-03 inject 50 kit=boxes [facility] FlexTouch 05-07 Units by for 3 ealt h U-100 00:00: 00:00 Subcutaneo month Insulin 100 00 :00 us route 2 supply unit/mL (3 times per mL) day in the subcutaneou morning s pen and evening amlodipine 2019-03 No take 1 [facility] 5 mg tablet 05-07 tablet (5 ea lth 00:00: 00:00 mg) by 00 :00 oral route once daily atorvastati 2019-03- No take 1 [facility] n 80 mg 05-07 tablet by ealth tablet 00:00: 00:00 Oral route 00 :00 1 time per day carvedilol 2019-03 No take 1 [facility] 25 mg 05-07 tablet (25 ealth tablet 00:00: 00:00 mg) by 00 :00 oral route 2 times per day with food clopidogrel 2019-03 No take 1 Acc ess[facility] 75 mg 05-07 tablet (75 ealth tablet 00:00: 00:00 mg) by 00 :00 oral route once daily gabapentin 2019-03- No 1{table Q8H take 1 A ccess[facility] 800 mg 05-07 t} tablet by ealth tablet 00:00: 00:00 oral route 00 :00 3 times every day Humalog 2019-03- inject kit=boxes Ac cess[facility] KwikPen 05-07 5-10 Units ealth (U-100) 00:00: 00:00 by Insulin 100 00 :00 Subcutaneo unit/mL us route 3 subcutaneou times per s day on a sliding scale three times a day before meals isosorbide 2019-03- No take 1 [facility] mononitrate 05-07 tablet (60 e alth ER 60 mg 00:00: 00:00 mg) by tablet,exte 00 :00 oral route nded once daily release 24 in the hr morning Levemir 2019-03- inject 50 kit=boxes [facility] FlexTouch 05-07 Units by for 3 ealt h U-100 00:00: 00:00 Subcutaneo month Insulin 100 00 :00 us route 2 supply unit/mL (3 times per mL) day in the subcutaneou morning s pen and evening gabapentin 2019-03- No 1{table Q8H take 1 A ccessH 800 mg 05-07 t} tablet by ealth tablet 00:00: 00:00 oral route 00 :00 3 times every day Humalog 2019-03- No inject kit=boxes Ac cess[facility] KwikPen 05-07 5-10 Units ealth (U-100) 00:00: 00:00 by Insulin 100 00 :00 Subcutaneo unit/mL us route 3 subcutaneou times per s day on a sliding scale three times a day before meals isosorbide 2019-03- No take 1 [facility] ss[facility] mononitrate 05-07 tablet (60 e alth ER 60 mg 00:00: 00:00 mg) by tablet,exte 00 :00 oral route nded once daily release 24 in the hr morning Levemir 2019-03- inject 50 kit=boxes Access[facility] FlexTouch 2-08 Units by for 3 ealt h U-100 00:00: 00:00 [facility] Insulin 100 00 :00 us route 2 supply unit/mL (3 times per mL) day in the [facility] morning s pen and evening carvedilol 2019-03- No take 1 Acce ssH 25 mg 05-07 tablet (25 ealth tablet 00:00: 00:00 mg) by 00 :00 oral route 2 times per day with food clopidogrel 2019-03 No take 1 Acc ess[facility] 75 mg 05-07 tablet (75 ealth tablet 00:00: 00:00 mg) by 00 :00 oral route once daily amlodipine 2019-03 No take 1 Acce ss[facility] 5 mg tablet 05-07 tablet (5 ea lth 00:00: 00:00 mg) by 00 :00 oral route once daily atorvastati 2019-03- No take 1 Acc ess[facility] n 80 mg 05-07 tablet by ealth tablet 00:00: 00:00 Oral route 00 :00 1 time per day amlodipine 2019-03- No take 1 [facility] ss[facility] 5 mg tablet 05-07 tablet (5 ea lth 00:00: 00:00 mg) by 00 :00 oral route once daily atorvastati 2019-03- No take 1 Acc ess[facility] n 80 mg 05-07 tablet by ealth tablet 00:00: 00:00 Oral route 00 :00 1 time per day carvedilol 2019-03- No take 1 Acce ss[facility] 25 mg 05-07 tablet (25 ealth tablet 00:00: 00:00 mg) by 00 :00 oral route 2 times per day with food clopidogrel 2019-03- No take 1 Acc ess[facility] 75 mg 05-07 tablet (75 ealth tablet 00:00: 00:00 mg) by 00 :00 oral route once daily gabapentin 2019-03- No 1{table Q8H take 1 A ccessH 800 mg 05-07 t} tablet by ealth tablet 00:00: 00:00 oral route 00 :00 3 times every day Humalog 2019-03- No inject kit=boxes Ac cessH KwikPen 05-07 5-10 Units ealth (U-100) 00:00: 00:00 by Insulin 100 00 :00 Subcutaneo unit/mL us route 3 subcutaneou times per s day on a sliding scale three times a day before meals isosorbide 2019-03- No take 1 Acce ss[facility] mononitrate 05-07 tablet (60 e alth ER 60 mg 00:00: 00:00 mg) by tablet,exte 00 :00 oral route nded once daily release 24 in the hr morning Levemir 2019-03- No inject 50 kit=boxes Access[facility] FlexTouch 05-07 Units by for 3 ealt h U-100 00:00: 00:00 Subcutaneo month Insulin 100 00 :00 us route 2 supply unit/mL (3 times per mL) day in the subcutaneou morning s pen and evening amlodipine 2019-03- No take 1 Acce ss[facility] 5 mg tablet 05-07 tablet (5 ea lth 00:00: 00:00 mg) by 00 :00 oral route once daily atorvastati 2019-03- No take 1 Acc ess[facility] n 80 mg 05-07 tablet by ealth tablet 00:00: 00:00 Oral route 00 :00 1 time per day carvedilol 2019-03- No take 1 Acce ss[facility] 25 mg 05-07 tablet (25 ealth tablet 00:00: 00:00 mg) by 00 :00 oral route 2 times per day with food clopidogrel 2019-03- No take 1 Acc essH 75 mg 05-07 tablet (75 ealth tablet 00:00: 00:00 mg) by 00 :00 oral route once daily gabapentin 2019-03- No 1{table Q8H take 1 A ccessH 800 mg 05-07 t} tablet by ealth tablet 00:00: 00:00 oral route 00 :00 3 times every day Humalog 2019-03- No inject kit=boxes Ac cessH KwikPen 05-07 5-10 Units ealth (U-100) 00:00: 00:00 by Insulin 100 00 :00 Subcutaneo unit/mL us route 3 subcutaneou times per s day on a sliding scale three times a day before meals isosorbide 2019-03- No take 1 Acce ss[facility] mononitrate 05-07 tablet (60 e alth ER 60 mg 00:00: 00:00 mg) by tablet,exte 00 :00 oral route nded once daily release 24 in the hr morning Levemir 2019-03- No inject 50 kit=boxes Access[facility] FlexTouch 05-07 Units by for 3 ealt h U-100 00:00: 00:00 Subcutaneo month Insulin 100 00 :00 us route 2 supply unit/mL (3 times per mL) day in the subcutaneou morning s pen and evening amlodipine 2019-03- No take 1 Acce ss[facility] 5 mg tablet 05-07 tablet (5 ea lth 00:00: 00:00 mg) by 00 :00 oral route once daily atorvastati 2019-03- No take 1 Acc essH n 80 mg 05-07 tablet by ealth tablet 00:00: 00:00 Oral route 00 :00 1 time per day carvedilol 2019-03- No take 1 Acce ssH 25 mg 05-07 tablet (25 ealth tablet 00:00: 00:00 mg) by 00 :00 oral route 2 times per day with food clopidogrel 2019-03- No take 1 Acc essH 75 mg 05-07 tablet (75 ealth tablet 00:00: 00:00 mg) by 00 :00 oral route once daily gabapentin 2019-03- No 1{table Q8H take 1 A ccessH 800 mg 05-07 t} tablet by ealth tablet 00:00: 00:00 oral route 00 :00 3 times every day Humalog 2019-03- No inject kit=boxes Ac cessH KwikPen 05-07 5-10 Units ealth (U-100) 00:00: 00:00 by Insulin 100 00 :00 Subcutaneo unit/mL us route 3 subcutaneou times per s day on a sliding scale three times a day before meals isosorbide 2019-03- No take 1 Acce ssH mononitrate 05-07 tablet (60 e alth ER 60 mg 00:00: 00:00 mg) by tablet,exte 00 :00 oral route nded once daily release 24 in the hr morning Levemir 2019-03- No inject 50 kit=boxes Access[facility] FlexTouch 05-07 Units by for 3 ealt h U-100 00:00: 00:00 Subcutaneo month Insulin 100 00 :00 us route 2 supply unit/mL (3 times per mL) day in the subcutaneou morning s pen and evening gabapentin 2019-03- No 1{table Q8H take 1 A ccessH 800 mg 05-07 t} tablet by ealth tablet 00:00: 00:00 oral route 00 :00 3 times every day Humalog 2019-03- No inject kit=boxes Ac cessH KwikPen 05-07 5-10 Units ealth (U-100) 00:00: 00:00 by Insulin 100 00 :00 Subcutaneo unit/mL us route 3 subcutaneou times per s day on a sliding scale three times a day before meals isosorbide 2019-03- No take 1 Acce ss[facility] mononitrate 05-07 tablet (60 e alth ER 60 mg 00:00: 00:00 mg) by tablet,exte 00 :00 oral route nded once daily release 24 in the hr morning Levemir 2019-03- No inject 50 kit=boxes Access[facility] FlexTouch 05-07 Units by for 3 ealt h U-100 00:00: 00:00 Subcutaneo month Insulin 100 00 :00 us route 2 supply unit/mL (3 times per mL) day in the subcutaneou morning s pen and evening amlodipine 2019-03- No take 1 Acce ss[facility] 5 mg tablet 05-07 tablet (5 ea lth 00:00: 00:00 mg) by 00 :00 oral route once daily atorvastati 2019-03- No take 1 Acc ess[facility] n 80 mg 05-07 tablet by ealth tablet 00:00: 00:00 Oral route 00 :00 1 time per day carvedilol 2019-03- No take 1 Acce ss[facility] 25 mg 05-07 tablet (25 ealth tablet 00:00: 00:00 mg) by 00 :00 oral route 2 times per day with food clopidogrel 2019-03 No take 1 Acc essH 75 mg 05-07 tablet (75 ealth tablet 00:00: 00:00 mg) by 00 :00 oral route once daily amlodipine 2019-03 No take 1 Acce ss[facility] 5 mg tablet 05-07 tablet (5 ea lth 00:00: 00:00 mg) by 00 :00 oral route once daily atorvastati 2019-03 No take 1 Acc ess[facility] n 80 mg 05-07 tablet by ealth tablet 00:00: 00:00 Oral route 00 :00 1 time per day carvedilol 2019-03 No take 1 Acce ss[facility] 25 mg 05-07 tablet (25 ealth tablet 00:00: 00:00 mg) by 00 :00 oral route 2 times per day with food clopidogrel 2019-03 take 1 Acc essH 75 mg 05-07 tablet (75 ealth tablet 00:00: 00:00 mg) by 00 :00 oral route once daily gabapentin 2019-03- No 1{table Q8H take 1 A ccessH 800 mg 05-07 t} tablet by ealth tablet 00:00: 00:00 oral route 00 :00 3 times every day Humalog 2019-03 inject kit=boxes Ac cessH KwikPen 05-07 5-10 Units ealth (U-100) 00:00: 00:00 by Insulin 100 00 :00 Subcutaneo unit/mL us route 3 subcutaneou times per s day on a sliding scale three times a day before meals isosorbide 2019-03- No take 1 Acce ssH mononitrate 05-07 tablet (60 e alth ER 60 mg 00:00: 00:00 mg) by tablet,exte 00 :00 oral route nded once daily release 24 in the hr morning Levemir 2019-03 No inject 50 kit=boxes Access[facility] FlexTouch 05-07 Units by for 3 ealt h U-100 00:00: 00:00 Subcutaneo month Insulin 100 00 :00 us route 2 supply unit/mL (3 times per mL) day in the subcutaneou morning s pen and evening amlodipine 2019-03- No take 1 Acce ss[facility] 5 mg tablet 05-07 tablet (5 ea lth 00:00: 00:00 mg) by 00 :00 oral route once daily atorvastati 2019-03- No take 1 Acc essH n 80 mg 05-07 tablet by ealth tablet 00:00: 00:00 Oral route 00 :00 1 time per day carvedilol 2019-03 No take 1 Acce ss[facility] 25 mg 05-07 tablet (25 ealth tablet 00:00: 00:00 mg) by 00 :00 oral route 2 times per day with food clopidogrel 2019-03 No take 1 Acc essH 75 mg 05-07 tablet (75 ealth tablet 00:00: 00:00 mg) by 00 :00 oral route once daily gabapentin 2019-03- No 1{table Q8H take 1 A ccessH 800 mg 05-07 t} tablet by ealth tablet 00:00: 00:00 oral route 00 :00 3 times every day Humalog 2019-03 inject kit=boxes Ac cessH KwikPen 05-07 5-10 Units ealth (U-100) 00:00: 00:00 by Insulin 100 00 :00 Subcutaneo unit/mL us route 3 subcutaneou times per s day on a sliding scale three times a day before meals isosorbide 2019-03- No take 1 Acce ssH mononitrate 05-07 tablet (60 e alth ER 60 mg 00:00: 00:00 mg) by tablet,exte 00 :00 oral route nded once daily release 24 in the hr morning Levemir 2019-03 No inject 50 kit=boxes AccessH FlexTouch 05-07 Units by for 3 ealt h U-100 00:00: 00:00 Subcutaneo month Insulin 100 00 :00 us route 2 supply unit/mL (3 times per mL) day in the [facility] morning s pen and evening bumetanide 2019-03- No take 1 Acce ss[facility] 1 mg tablet 05-07 tablet (1 ea lth 00:00: 00:00 mg) by 00 :00 oral route 2 times per day bumetanide 2019-03- No take 1 Acce ssH 1 mg tablet 05-07 tablet (1 ea lth 00:00: 00:00 mg) by 00 :00 oral route 2 times per day bumetanide 2019-03- No take 1 Acce ss[facility] 1 mg tablet 05-07 tablet (1 ea lth 00:00: 00:00 mg) by 00 :00 oral route 2 times per day bumetanide 2019-03- No take 1 Acce ss[facility] 1 mg tablet 05-07 tablet (1 ea lth 00:00: 00:00 mg) by 00 :00 oral route 2 times per day bumetanide 2019-03- No take 1 Acce ss[facility] 1 mg tablet 05-07 tablet (1 ea lth 00:00: 00:00 mg) by 00 :00 oral route 2 times per day bumetanide 2019-03- No take 1 Acce ss[facility] 1 mg tablet 05-07 tablet (1 ea lth 00:00: 00:00 mg) by 00 :00 oral route 2 times per day bumetanide 2019-03- No take 1 Acce ss[facility] 1 mg tablet 05-07 tablet (1 ea lth 00:00: 00:00 mg) by 00 :00 oral route 2 times per day bumetanide 2019-03- No take 1 Acce ss[facility] 1 mg tablet 05-07 tablet (1 ea lth 00:00: 00:00 mg) by 00 :00 oral route 2 times per day bumetanide 2019-03- No take 1 Acce ss[facility] 1 mg tablet 05-07 tablet (1 ea lth 00:00: 00:00 mg) by 00 :00 oral route 2 times per day bumetanide 2019-03- No take 1 Acce ss[facility] 1 mg tablet 05-07 tablet (1 ea lth 00:00: 00:00 mg) by 00 :00 oral route 2 times per day bumetanide 2019-03- No take 1 Acce ssH 1 mg tablet 05-07 tablet (1 ea lth 00:00: 00:00 mg) by 00 :00 oral route 2 times per day bumetanide 2019-03- No take 1 Acce ss[facility] 1 mg tablet 05-07 tablet (1 ea lth 00:00: 00:00 mg) by 00 :00 oral route 2 times per day bumetanide 2019-03- No take 1 Acce ss[facility] 1 mg tablet 05-07 tablet (1 ea lth 00:00: 00:00 mg) by 00 :00 oral route 2 times per day bumetanide 2019-03- No take 1 [facility] 1 mg tablet 05-07 tablet (1 ea lth 00:00: 00:00 mg) by 00 :00 oral route 2 times per day bumetanide 2019-03- No take 1 [facility] 1 mg tablet 05-07 tablet (1 ea lth 00:00: 00:00 mg) by 00 :00 oral route 2 times per day bumetanide 2019-03- No take 1 [facility] 1 mg tablet 05-07 tablet (1 ea lth 00:00: 00:00 mg) by 00 :00 oral route 2 times per day bumetanide 2019-03- No take 1 [facility] 1 mg tablet 05-07 tablet (1 ea lth 00:00: 00:00 mg) by 00 :00 oral route 2 times per day bumetanide 2019-03- No take 1 [facility] 1 mg tablet 05-07 tablet (1 ea lth 00:00: 00:00 mg) by 00 :00 oral route 2 times per day bumetanide 2019-03- No take 1 [facility] 1 mg tablet 05-07 tablet (1 ea lth 00:00: 00:00 mg) by 00 :00 oral route 2 times per day bumetanide 2019-03- No take 1 [facility] 1 mg tablet 05-07 tablet (1 ea lth 00:00: 00:00 mg) by 00 :00 oral route 2 times per day metolazone 2019-03- No take 1 [facility] 5 mg tablet 05-07 tablet (5 ea lth 00:00: 00:00 mg) by 00 :00 oral route once daily lisinopril 2019-03- No take 1 [facility] 40 mg 05-07 tablet (40 [facility] tablet 00:00: 00:00 mg) by 00 :00 oral route once daily metolazone 2019-03- No take 1 [facility] 5 mg tablet 05-07 tablet (5 ea lth 00:00: 00:00 mg) by 00 :00 oral route once daily lisinopril 2019-03- No take 1 [facility] 40 mg 05-07 tablet (40 [facility] tablet 00:00: 00:00 mg) by 00 :00 oral route once daily metolazone 2019-03- No take 1 [facility] 5 mg tablet 05-07 tablet (5 ea lth 00:00: 00:00 mg) by 00 :00 oral route once daily lisinopril 2019-03- No take 1 [facility] 40 mg 05-07 tablet (40 [facility] tablet 00:00: 00:00 mg) by 00 :00 oral route once daily metolazone 2019-03- No take 1 [facility] 5 mg tablet 05-07 tablet (5 ea lth 00:00: 00:00 mg) by 00 :00 oral route once daily lisinopril 2019-03- No take 1 [facility] 40 mg 05-07 tablet (40 e[facility] tablet 00:00: 00:00 mg) by 00 :00 oral route once daily metolazone 2019-03- No take 1 [facility] 5 mg tablet 05-07 tablet (5 ea lth 00:00: 00:00 mg) by 00 :00 oral route once daily lisinopril 2019-03- No take 1 [facility] 40 mg 05-07 tablet (40 [facility] tablet 00:00: 00:00 mg) by 00 :00 oral route once daily metolazone 2019-03- No take 1 [facility] 5 mg tablet 05-07 tablet (5 ea lth 00:00: 00:00 mg) by 00 :00 oral route once daily lisinopril 2019-03- No take 1 [facility] 40 mg 05-07 tablet (40 [facility] tablet 00:00: 00:00 mg) by 00 :00 oral route once daily metolazone 2019-03- No take 1 [facility] 5 mg tablet 05-07 tablet (5 ea lth 00:00: 00:00 mg) by 00 :00 oral route once daily lisinopril 2019-03- No take 1 [facility] 40 mg 05-07 tablet (40 [facility] tablet 00:00: 00:00 mg) by 00 :00 oral route once daily metolazone 2019-03- No take 1 [facility] 5 mg tablet 05-07 tablet (5 ea lth 00:00: 00:00 mg) by 00 :00 oral route once daily lisinopril 2019-03- No take 1 [facility] 40 mg 05-07 tablet (40 [facility] tablet 00:00: 00:00 mg) by 00 :00 oral route once daily metolazone 2019-03- No take 1 [facility] 5 mg tablet 05-07 tablet (5 ea lth 00:00: 00:00 mg) by 00 :00 oral route once daily lisinopril 2019-03- No take 1 [facility] 40 mg 05-07 tablet (40 [facility] tablet 00:00: 00:00 mg) by 00 :00 oral route once daily metolazone 2019-03- No take 1 [facility] 5 mg tablet 05-07 tablet (5 ea lth 00:00: 00:00 mg) by 00 :00 oral route once daily lisinopril 2019-03- No take 1 [facility] 40 mg 05-07 tablet (40 e[facility] tablet 00:00: 00:00 mg) by 00 :00 oral route once daily metolazone 2019-03- No take 1 [facility] 5 mg tablet 05-07 tablet (5 ea lth 00:00: 00:00 mg) by 00 :00 oral route once daily lisinopril 2019-03- No take 1 [facility] 40 mg 05-07 tablet (40 [facility] tablet 00:00: 00:00 mg) by 00 :00 oral route once daily metolazone 2019-03- No take 1 [facility] 5 mg tablet 05-07 tablet (5 ea lth 00:00: 00:00 mg) by 00 :00 oral route once daily lisinopril 2019-03- No take 1 [facility] 40 mg 05-07 tablet (40 e[facility] tablet 00:00: 00:00 mg) by 00 :00 oral route once daily metolazone 2019-03- No take 1 [facility] 5 mg tablet 05-07 tablet (5 ea lth 00:00: 00:00 mg) by 00 :00 oral route once daily lisinopril 2019-03- No take 1 [facility] 40 mg 05-07 tablet (40 e[facility] tablet 00:00: 00:00 mg) by 00 :00 oral route once daily metolazone 2019-03- No take 1 [facility] 5 mg tablet 05-07 tablet (5 ea lth 00:00: 00:00 mg) by 00 :00 oral route once daily lisinopril 2019-03- No take 1 [facility] 40 mg 05-07 tablet (40 [facility] tablet 00:00: 00:00 mg) by 00 :00 oral route once daily metolazone 2019-03- No take 1 [facility] 5 mg tablet 05-07 tablet (5 ea lth 00:00: 00:00 mg) by 00 :00 oral route once daily lisinopril 2019-03- No take 1 [facility] 40 mg 05-07 tablet (40 [facility] tablet 00:00: 00:00 mg) by 00 :00 oral route once daily lisinopril 2019-03- No take 1 [facility] 40 mg 05-07 tablet (40 e[facility] tablet 00:00: 00:00 mg) by 00 :00 oral route once daily metolazone 2019-03- No take 1 [facility] 5 mg tablet 05-07 tablet (5 ea lth 00:00: 00:00 mg) by 00 :00 oral route once daily metolazone 2019-03- No take 1 [facility] 5 mg tablet 05-07 tablet (5 ea lth 00:00: 00:00 mg) by 00 :00 oral route once daily lisinopril 2019-03- No take 1 [facility] 40 mg 05-07 tablet (40 [facility] tablet 00:00: 00:00 mg) by 00 :00 oral route once daily metolazone 2019-03- No take 1 [facility] 5 mg tablet 05-07 tablet (5 ea lth 00:00: 00:00 mg) by 00 :00 oral route once daily lisinopril 2019-03- No take 1 [facility] 40 mg 05-07 tablet (40 [facility] tablet 00:00: 00:00 mg) by 00 :00 oral route once daily metolazone 2019-03- No take 1 [facility] 5 mg tablet 05-07 tablet (5 ea lth 00:00: 00:00 mg) by 00 :00 oral route once daily lisinopril 2019-03- No take 1 [facility] 40 mg 05-07 tablet (40 [facility] tablet 00:00: 00:00 mg) by 00 :00 oral route once daily lisinopril 2019-03- No take 1 [facility] 40 mg 05-07 tablet (40 e[facility] tablet 00:00: 00:00 mg) by 00 :00 oral route once daily metolazone 2019-03- No take 1 [facility] 5 mg tablet 05-07 tablet (5 ea lth 00:00: 00:00 mg) by 00 :00 oral route once daily metolazone 2019-03- No take 1 [facility] 5 mg tablet 05-07 tablet (5 ea lth 00:00: 00:00 mg) by 00 :00 oral route once daily lisinopril 2019-03- No take 1 [facility] 40 mg 05-07 tablet (40 e[facility] tablet 00:00: 00:00 mg) by 00 :00 oral route once daily metolazone 2019-03- No take 1 [facility] 5 mg tablet 05-07 tablet (5 ea lth 00:00: 00:00 mg) by 00 :00 oral route once daily lisinopril 2019-03 No take 1 [facility] 40 mg 05-07 tablet (40 e[facility] tablet 00:00: 00:00 mg) by 00 :00 oral route once daily metolazone 2019-03- No take 1 [facility] 5 mg tablet 05-07 tablet (5 ea lth 00:00: 00:00 mg) by 00 :00 oral route once daily lisinopril 2019-03- No take 1 [facility] 40 mg 05-07 tablet (40 e[facility] tablet 00:00: 00:00 mg) by 00 :00 oral route once daily metolazone 2019-03- No take 1 [facility] 5 mg tablet 05-07 tablet (5 ea lth 00:00: 00:00 mg) by 00 :00 oral route once daily lisinopril 2019-03- No take 1 [facility] 40 mg 05-07 tablet (40 [facility] tablet 00:00: 00:00 mg) by 00 :00 oral route once daily sulfamethox 2019- 160mg{t Q.5D Take [address] [facility] azole-trime 12-01 0915 rimetho tablet Siddhartha kes thoprim 00:00: 23:59 prim} (160 mg of Me dical (BACTRIM 00 :00 trimethopr Cente r DS) 800-160 im total) mg per by mouth 2 tablet (two) times daily for 10 days smx-tmp DS (BACTRIM) 800-160 mg tabs (1tab q12 D10). sulfamethox 2020-0 2020- No 160mg{t Q.5D Take [address] [facility] azole-trime 12-01 rimetho tablet Siddhartha [facility] thoprim 00:00: 23:59 prim} (160 mg of Me dical (BACTRIM 00 :00 trimethopr Cente r DS) 800-160 im total) mg per by mouth 2 tablet (two) times daily for 10 days smx-tmp DS (BACTRIM) 800-160 mg tabs (1tab q12 D10). sulfamethox 2020-0 2020- No 160mg{t Q.5D Take [address] [facility] azole-trime 12-01 rimetho tablet Siddhartha [facility] thoprim 00:00: 23:59 prim} (160 mg of Me dical (BACTRIM 00 :00 trimethopr Cente r DS) 800-160 im total) mg per by mouth 2 tablet (two) times daily for 10 days smx-tmp DS (BACTRIM) 800-160 mg tabs (1tab q12 D10). sulfamethox 2020-0 2020- No 160mg{t Q.5D Take [address] [facility] 12-01 [facility] prim} (160 mg of Me dical (BACTRIM 00 :00 trimethopr Cente r DS) 800-160 im total) mg per by mouth 2 tablet (two) times daily for 10 days smx-tmp DS (BACTRIM) 800-160 mg tabs (1tab q12 D10). sulfamethox 2020-0 2020- No 160mg{t Q.5D Take [address] [facility] azole-trime 12-01 rimetho tablet Siddhartha kes thoprim 00:00: 23:59 prim} (160 mg of Me dical (BACTRIM 00 :00 trimethopr Cente r DS) 800-160 im total) mg per by mouth 2 tablet (two) times daily for 10 days smx-tmp DS (BACTRIM) 800-160 mg tabs (1tab q12 D10). sulfamethox 2020-0 2020- No 160mg{t Q.5D Take [address] [facility] azole-trime 9-05 09-15 rimetho tablet Siddhartha kes thoprim 00:00: 23:59 prim} (160 mg of Me dical (BACTRIM 00 :00 trimethopr Cent[facility] r DS) 800-160 im total) mg per by mouth 2 tablet (two) times daily for 10 days smx-tmp DS (BACTRIM) 800-160 mg tabs (1tab q12 D10). HYDROcodone 2019-2019- No 1{tbl} Take 1 C [...] St -acetaminop -12-08 tablet by Siddhartha robertson ([place] 00:00: 23:59 mouth Medic al 5-325) 00 [...] days. Max Daily Amount: 4 tablets amlodipine 2019- No take 1 [facility] 5 mg tablet 8-13 tablet (5 eal th 00:00: mg) by 00 oral route once daily atorvastati 2019- No take 1 [facility] n 80 mg 8-13 tablet by ealth tablet 00:00: Oral route 00 1 time per day bumetanide 2019- No take 1 [facility] 1 mg tablet 8-13 tablet (1 eal th 00:00: mg) by 00 oral route 2 times per day carvedilol No take 1 [facility] 25 mg 8-13 tablet (25 ealth tablet 00:00: mg) by 00 oral route 2 times per day with food clopidogrel No take 1 [facility] 75 mg 8-13 tablet (75 ealth tablet 00:00: mg) by 00 oral route once daily gabapentin No 1{table Q8H take 1 [facility] 800 mg 8-13 t} tablet by ealth tablet 00:00: oral route 00 3 times every day Humalog No inject [facility] KwikPen 8-13 5-10 Units ealth (U-100) 00:00: by Insulin 100 00 Subcutaneo unit/mL us route 3 subcutaneou times per s day on a sliding scale three times a day before meals isosorbide No take 1 [facility] mononitrate 8-13 tablet (60 ea lth ER 60 mg 00:00: mg) by tablet,exte 00 oral route nded once daily release 24 in the hr morning Levemir No inject 50 [facility] FlexTouch 8-13 Units by ealth U-100 00:00: Subcutaneo Insulin 100 00 us route 2 unit/mL (3 times per mL) day in the subcutaneou morning s pen and evening lisinopril No take 1 [facility] 40 mg 8-13 tablet (40 ealth tablet 00:00: mg) by 00 oral route once daily metolazone No take 1 [facility] 5 mg tablet 8-13 tablet (5 eal th 00:00: mg) by 00 oral route once daily amlodipine 2019- No take 1 [facility] 5 mg tablet 8-13 - tablet (5 ea lth 00:00: 00:00 mg) by 00 :00 oral route once daily atorvastati 2019- No take 1 [facility] n 80 mg 8-10 03- tablet by ealth tablet 00:00: 00:00 Oral route 00 :00 1 time per day bumetanide 2019- No take 1 [facility] 1 mg tablet 8-13 12-09 tablet (1 ea lth 00:00: 00:00 mg) by 00 :00 oral route 2 times per day carvedilol take 1 [facility] 25 mg 11-08 tablet (25 ealth tablet 00:00: 00:00 mg) by 00 :00 oral route 2 times per day with food clopidogrel take 1 [facility] 75 mg 11-08 tablet (75 ealth tablet 00:00: 00:00 mg) by 00 :00 oral route once daily gabapentin No 1{table Q8H take 1 [facility] 800 mg 11-08 t} tablet by ealth tablet 00:00: 00:00 oral route 00 :00 3 times every day Humalog inject [facility] KwikPen 11-08 5-10 Units ealth (U-100) 00:00: 00:00 by Insulin 100 00 :00 Subcutaneo unit/mL us route 3 subcutaneou times per s day on a sliding scale three times a day before meals isosorbide 2019- take 1 [facility] mononitrate 11-08 tablet (60 e alth ER 60 mg 00:00: 00:00 mg) by tablet,exte 00 :00 oral route nded once daily release 24 in the hr morning Levemir inject 50 [facility] FlexTouch 11-08 Units by ealth U-100 00:00: 00:00 Subcutaneo Insulin 100 00 :00 us route 2 unit/mL (3 times per mL) day in the subcutaneou morning s pen and evening lisinopril take 1 [facility] 40 mg 11-08 tablet (40 ealth tablet 00:00: 00:00 mg) by 00 :00 oral route once daily metolazone take 1 [facility] 5 mg tablet 11-08 tablet (5 ea lth 00:00: 00:00 mg) by 00 :00 oral route once daily amlodipine take 1 [facility] 5 mg tablet 11-08 tablet (5 ea lth 00:00: 00:00 mg) by 00 :00 oral route once daily atorvastati 2019- take 1 [facility] n 80 mg 11-08 tablet by ealth tablet 00:00: 00:00 Oral route 00 :00 1 time per day bumetanide 2019- No take 1 [facility] 1 mg tablet 11-08 tablet (1 ea lth 00:00: 00:00 mg) by 00 :00 oral route 2 times per day carvedilol take 1 [facility] 25 mg 11-08 tablet (25 ealth tablet 00:00: 00:00 mg) by 00 :00 oral route 2 times per day with food clopidogrel take 1 [facility] 75 mg 11-08 tablet (75 ealth tablet 00:00: 00:00 mg) by 00 :00 oral route once daily gabapentin 2019- No 1{table Q8H take 1 [facility] 800 mg 11-08 t} tablet by ealth tablet 00:00: 00:00 oral route 00 :00 3 times every day Humalog inject [facility] KwikPen 11-08 5-10 Units ealth (U-100) 00:00: 00:00 by Insulin 100 00 :00 Subcutaneo unit/mL us route 3 subcutaneou times per s day on a sliding scale three times a day before meals isosorbide 2019- No take 1 [facility] mononitrate 11-08 tablet (60 e alth ER 60 mg 00:00: 00:00 mg) by tablet,exte 00 :00 oral route nded once daily release 24 in the hr morning Levemir No inject 50 [facility] FlexTouch 11-08 Units by ealth U-100 00:00: 00:00 Subcutaneo Insulin 100 00 :00 us route 2 unit/mL (3 times per mL) day in the subcutaneou morning s pen and evening lisinopril 2019- No take 1 [facility] 40 mg 11-08 tablet (40 ealth tablet 00:00: 00:00 mg) by 00 :00 oral route once daily metolazone take 1 [facility] 5 mg tablet 11-08 tablet (5 ea lth 00:00: 00:00 mg) by 00 :00 oral route once daily amlodipine take 1 [facility] 5 mg tablet 11-08 tablet (5 ea lth 00:00: 00:00 mg) by 00 :00 oral route once daily atorvastati take 1 [facility] n 80 mg 11-08 tablet by ealth tablet 00:00: 00:00 Oral route 00 :00 1 time per day bumetanide take 1 [facility] 1 mg tablet 11-08 tablet (1 ea lth 00:00: 00:00 mg) by 00 :00 oral route 2 times per day carvedilol take 1 [facility] 25 mg 11-08 tablet (25 ealth tablet 00:00: 00:00 mg) by 00 :00 oral route 2 times per day with food clopidogrel take 1 [facility] 75 mg 11-08 tablet (75 ealth tablet 00:00: 00:00 mg) by 00 :00 oral route once daily gabapentin 2019- No 1{table Q8H take 1 [facility] 800 mg 11-08 t} tablet by ealth tablet 00:00: 00:00 oral route 00 :00 3 times every day Humalog inject [facility] KwikPen 11-08 5-10 Units ealth (U-100) 00:00: 00:00 by Insulin 100 00 :00 Subcutaneo unit/mL us route 3 subcutaneou times per s day on a sliding scale three times a day before meals isosorbide 2019- No take 1 [facility] mononitrate 11-08 tablet (60 e alth ER 60 mg 00:00: 00:00 mg) by tablet,exte 00 :00 oral route nded once daily release 24 in the hr morning Levemir 2019- inject 50 [facility] FlexTouch 11-08 Units by ealth U-100 00:00: 00:00 Subcutaneo Insulin 100 00 :00 us route 2 unit/mL (3 times per mL) day in the subcutane morning s pen and evening lisinopril 2019- No take 1 [facility] 40 mg 11-08 tablet (40 ealth tablet 00:00: 00:00 mg) by 00 :00 oral route once daily metolazone 2019- No take 1 [facility] 5 mg tablet 11-08 tablet (5 ea lth 00:00: 00:00 mg) by 00 :00 oral route once daily amlodipine No take 1 [facility] 5 mg tablet 11-08 tablet (5 ea lth 00:00: 00:00 mg) by 00 :00 oral route once daily atorvastati 2019- No take 1 [facility] n 80 mg 11-08 tablet by ealth tablet 00:00: 00:00 Oral route 00 :00 1 time per day bumetanide 2019- No take 1 [facility] 1 mg tablet 11-08 tablet (1 ea lth 00:00: 00:00 mg) by 00 :00 oral route 2 times per day carvedilol 2019- No take 1 [facility] 25 mg 11-08 tablet (25 ealth tablet 00:00: 00:00 mg) by 00 :00 oral route 2 times per day with food clopidogrel 2019- No take 1 [facility] 75 mg 11-08 tablet (75 ealth tablet 00:00: 00:00 mg) by 00 :00 oral route once daily gabapentin 2019- No 1{table Q8H take 1 [facility] 800 mg 11-08 t} tablet by ealth tablet 00:00: 00:00 oral route 00 :00 3 times every day Humalog 2019- No inject [facility] KwikPen 11-08 5-10 Units ealth (U-100) 00:00: 00:00 by Insulin 100 00 :00 Subcutaneo unit/mL us route 3 subcutaneou times per s day on a sliding scale three times a day before meals isosorbide 2019- No take 1 [facility] mononitrate 11-08 tablet (60 e alth ER 60 mg 00:00: 00:00 mg) by tablet,exte 00 :00 oral route nded once daily release 24 in the hr morning Levemir 2019- No inject 50 [facility] FlexTouch 11-08 Units by ealth U-100 00:00: 00:00 Subcutaneo Insulin 100 00 :00 us route 2 unit/mL (3 times per mL) day in the subcutaneou morning s pen and evening lisinopril take 1 [facility] 40 mg 11-08 tablet (40 ealth tablet 00:00: 00:00 mg) by 00 :00 oral route once daily metolazone 2019- No take 1 [facility] 5 mg tablet 11-08 tablet (5 ea lth 00:00: 00:00 mg) by 00 :00 oral route once daily amlodipine 2019- No take 1 [facility] 5 mg tablet 11-08 tablet (5 ea lth 00:00: 00:00 mg) by 00 :00 oral route once daily atorvastati 2019- No take 1 [facility] n 80 mg 11-08 tablet by ealth tablet 00:00: 00:00 Oral route 00 :00 1 time per day bumetanide 2019- No take 1 [facility] 1 mg tablet 11-08 tablet (1 ea lth 00:00: 00:00 mg) by 00 :00 oral route 2 times per day carvedilol 2019- No take 1 [facility] 25 mg 11-08 tablet (25 ealth tablet 00:00: 00:00 mg) by 00 :00 oral route 2 times per day with food clopidogrel 2019- No take 1 [facility] 75 mg 11-08 tablet (75 ealth tablet 00:00: 00:00 mg) by 00 :00 oral route once daily gabapentin 2020-0 2020- No 1{table Q8H take 1 [facility] 800 mg 11-08 t} tablet by ealth tablet 00:00: 00:00 oral route 00 :00 3 times every day Humalog 2019- No inject [facility] KwikPen 11-08 5-10 Units ealth (U-100) 00:00: 00:00 by Insulin 100 00 :00 Subcutaneo unit/mL us route 3 subcutaneou times per s day on a sliding scale three times a day before meals isosorbide 2019- No take 1 [facility] mononitrate 11-08 tablet (60 e alth ER 60 mg 00:00: 00:00 mg) by tablet,exte 00 :00 oral route nded once daily release 24 in the hr morning Levemir inject 50 [facility] FlexTouch 11-08 Units by ealth U-100 00:00: 00:00 Subcutaneo Insulin 100 00 :00 us route 2 unit/mL (3 times per mL) day in the subcutaneou morning s pen and evening lisinopril 2019- No take 1 [facility] 40 mg 11-08 tablet (40 ealth tablet 00:00: 00:00 mg) by 00 :00 oral route once daily metolazone 2019- No take 1 [facility] 5 mg tablet 11-08 tablet (5 ea lth 00:00: 00:00 mg) by 00 :00 oral route once daily amlodipine 2019- No take 1 [facility] 5 mg tablet 11-08 tablet (5 ea lth 00:00: 00:00 mg) by 00 :00 oral route once daily atorvastati 2019- No take 1 [facility] n 80 mg 11-08 tablet by ealth tablet 00:00: 00:00 Oral route 00 :00 1 time per day bumetanide 2019- No take 1 [facility] 1 mg tablet 11-08 tablet (1 ea lth 00:00: 00:00 mg) by 00 :00 oral route 2 times per day carvedilol take 1 [facility] 25 mg 11-08 tablet (25 ealth tablet 00:00: 00:00 mg) by 00 :00 oral route 2 times per day with food clopidogrel take 1 [facility] 75 mg 11-08 tablet (75 ealth tablet 00:00: 00:00 mg) by 00 :00 oral route once daily gabapentin 2019- No 1{table Q8H take 1 [facility] 800 mg 11-08 t} tablet by ealth tablet 00:00: 00:00 oral route 00 :00 3 times every day Humalog inject [facility] KwikPen 11-08 5-10 Units ealth (U-100) 00:00: 00:00 by Insulin 100 00 :00 Subcutaneo unit/mL us route 3 subcutaneou times per s day on a sliding scale three times a day before meals isosorbide 2019- take 1 [facility] mononitrate 11-08 tablet (60 e alth ER 60 mg 00:00: 00:00 mg) by tablet,exte 00 :00 oral route nded once daily release 24 in the hr morning Levemir inject 50 [facility] FlexTouch 11-08 Units by ealth U-100 00:00: 00:00 Subcutaneo Insulin 100 00 :00 us route 2 unit/mL (3 times per mL) day in the subcutaneou morning s pen and evening lisinopril take 1 [facility] 40 mg 11-08 tablet (40 ealth tablet 00:00: 00:00 mg) by 00 :00 oral route once daily metolazone take 1 [facility] 5 mg tablet 11-08 tablet (5 ea lth 00:00: 00:00 mg) by 00 :00 oral route once daily amlodipine take 1 [facility] 5 mg tablet 11-08 tablet (5 ea lth 00:00: 00:00 mg) by 00 :00 oral route once daily atorvastati take 1 [facility] n 80 mg 11-08 tablet by ealth tablet 00:00: 00:00 Oral route 00 :00 1 time per day bumetanide take 1 [facility] 1 mg tablet 11-08 tablet (1 ea lth 00:00: 00:00 mg) by 00 :00 oral route 2 times per day carvedilol take 1 [facility] 25 mg 11-08 tablet (25 ealth tablet 00:00: 00:00 mg) by 00 :00 oral route 2 times per day with food clopidogrel take 1 [facility] 75 mg 11-08 tablet (75 ealth tablet 00:00: 00:00 mg) by 00 :00 oral route once daily gabapentin No 1{table Q8H take 1 [facility] 800 mg 11-08 t} tablet by ealth tablet 00:00: 00:00 oral route 00 :00 3 times every day Humalog inject [facility] KwikPen 11-08 5-10 Units ealth (U-100) 00:00: 00:00 by Insulin 100 00 :00 Subcutaneo unit/mL us route 3 subcutaneou times per s day on a sliding scale three times a day before meals isosorbide take 1 [facility] mononitrate 11-08 tablet (60 e alth ER 60 mg 00:00: 00:00 mg) by tablet,exte 00 :00 oral route nded once daily release 24 in the hr morning Levemir inject 50 [facility] FlexTouch 11-08 Units by ealth U-100 00:00: 00:00 Subcutaneo Insulin 100 00 :00 us route 2 unit/mL (3 times per mL) day in the subcutaneou morning s pen and evening lisinopril take 1 [facility] 40 mg 11-08 tablet (40 ealth tablet 00:00: 00:00 mg) by 00 :00 oral route once daily metolazone 2020-0 2020- No take 1 [facility] 5 mg tablet 11-08 tablet (5 ea lth 00:00: 00:00 mg) by 00 :00 oral route once daily amlodipine 2019- No take 1 [facility] 5 mg tablet 11-08 tablet (5 ea lth 00:00: 00:00 mg) by 00 :00 oral route once daily atorvastati 2019- No take 1 [facility] n 80 mg 11-08 tablet by ealth tablet 00:00: 00:00 Oral route 00 :00 1 time per day bumetanide 2019- No take 1 [facility] 1 mg tablet 11-08 tablet (1 ea lth 00:00: 00:00 mg) by 00 :00 oral route 2 times per day carvedilol take 1 [facility] 25 mg 11-08 tablet (25 ealth tablet 00:00: 00:00 mg) by 00 :00 oral route 2 times per day with food clopidogrel No take 1 [facility] 75 mg 11-08 tablet (75 ealth tablet 00:00: 00:00 mg) by 00 :00 oral route once daily gabapentin 2019- No 1{table Q8H take 1 [facility] 800 mg 11-08 t} tablet by ealth tablet 00:00: 00:00 oral route 00 :00 3 times every day Humalog inject [facility] KwikPen 11-08 5-10 Units ealth (U-100) 00:00: 00:00 by Insulin 100 00 :00 Subcutaneo unit/mL us route 3 subcutaneou times per s day on a sliding scale three times a day before meals isosorbide 2019- No take 1 [facility] mononitrate 11-08 tablet (60 e alth ER 60 mg 00:00: 00:00 mg) by tablet,exte 00 :00 oral route nded once daily release 24 in the hr morning Levemir 2019- No inject 50 [facility] FlexTouch 11-08 Units by ealth U-100 00:00: 00:00 Subcutaneo Insulin 100 00 :00 us route 2 unit/mL (3 times per mL) day in the subcutaneou morning s pen and evening lisinopril 2019- No take 1 [facility] 40 mg 11-08 tablet (40 ealth tablet 00:00: 00:00 mg) by 00 :00 oral route once daily metolazone 2019- No take 1 [facility] 5 mg tablet 11-08 tablet (5 ea lth 00:00: 00:00 mg) by 00 :00 oral route once daily amlodipine 2019- No take 1 [facility] 5 mg tablet 11-08 tablet (5 ea lth 00:00: 00:00 mg) by 00 :00 oral route once daily atorvastati 2019- No take 1 [facility] n 80 mg 11-08 tablet by ealth tablet 00:00: 00:00 Oral route 00 :00 1 time per day bumetanide 2019- No take 1 [facility] 1 mg tablet 11-08 tablet (1 ea lth 00:00: 00:00 mg) by 00 :00 oral route 2 times per day carvedilol 2019- No take 1 [facility] 25 mg 11-08 tablet (25 ealth tablet 00:00: 00:00 mg) by 00 :00 oral route 2 times per day with food clopidogrel 2019- No take 1 [facility] 75 mg 11-08 tablet (75 ealth tablet 00:00: 00:00 mg) by 00 :00 oral route once daily gabapentin 2019- No 1{table Q8H take 1 A ccess[facility] 800 mg 11-08 t} tablet by ealth tablet 00:00: 00:00 oral route 00 :00 3 times every day Humalog 2019- No inject [facility] KwikPen 11-08 5-10 Units ealth (U-100) 00:00: 00:00 by Insulin 100 00 :00 Subcutaneo unit/mL us route 3 subcutaneou times per s day on a sliding scale three times a day before meals isosorbide 2019- No take 1 [facility] mononitrate 11-08 tablet (60 e alth ER 60 mg 00:00: 00:00 mg) by tablet,exte 00 :00 oral route nded once daily release 24 in the hr morning Levemir 2019- No inject 50 [facility] FlexTouch 11-08 Units by [facility]alth U-100 00:00: 00:00 Subcutaneo Insulin 100 00 :00 us route 2 unit/mL (3 times per mL) day in the subcutaneou morning s pen and evening lisinopril take 1 [facility] 40 mg 11-08 tablet (40 ealth tablet 00:00: 00:00 mg) by 00 :00 oral route once daily metolazone take 1 [facility] 5 mg tablet 11-08 tablet (5 ea lth 00:00: 00:00 mg) by 00 :00 oral route once daily amlodipine take 1 [facility] 5 mg tablet 11-08 tablet (5 ea lth 00:00: 00:00 mg) by 00 :00 oral route once daily atorvastati take 1 [facility] n 80 mg 11-08 tablet by ealth tablet 00:00: 00:00 Oral route 00 :00 1 time per day bumetanide 2019- No take 1 [facility] 1 mg tablet 11-08 tablet (1 ea lth 00:00: 00:00 mg) by 00 :00 oral route 2 times per day carvedilol take 1 [facility] 25 mg 11-08 tablet (25 e[facility] tablet 00:00: 00:00 mg) by 00 :00 oral route 2 times per day with food clopidogrel take 1 [facility] 75 mg 11-08 tablet (75 ealth tablet 00:00: 00:00 mg) by 00 :00 oral route once daily gabapentin No 1{table Q8H take 1 A ccess[facility] 800 mg 11-08 t} tablet by ealth tablet 00:00: 00:00 oral route 00 :00 3 times every day Humalog 2019- No inject [facility] KwikPen 11-08 5-10 Units ealth (U-100) 00:00: 00:00 by Insulin 100 00 :00 Subcutaneo unit/mL us route 3 subcutaneou times per s day on a sliding scale three times a day before meals isosorbide 2019- No take 1 [facility] mononitrate 11-08 tablet (60 e alth ER 60 mg 00:00: 00:00 mg) by tablet,exte 00 :00 oral route nded once daily release 24 in the hr morning Levemir 2019- No inject 50 [facility] FlexTouch 11-08 Units by ealth U-100 00:00: 00:00 Subcutaneo Insulin 100 00 :00 us route 2 unit/mL (3 times per mL) day in the subcutaneou morning s pen and evening lisinopril 2019- No take 1 [facility] 40 mg 11-08 tablet (40 ealth tablet 00:00: 00:00 mg) by 00 :00 oral route once daily metolazone 2019- No take 1 [facility] 5 mg tablet 11-08 tablet (5 ea lth 00:00: 00:00 mg) by 00 :00 oral route once daily amlodipine 2019- No take 1 [facility] 5 mg tablet 11-08 tablet (5 ea lth 00:00: 00:00 mg) by 00 :00 oral route once daily atorvastati 2019- No take 1 [facility] n 80 mg 11-08 tablet by ealth tablet 00:00: 00:00 Oral route 00 :00 1 time per day bumetanide 2019- No take 1 [facility] 1 mg tablet 11-08 tablet (1 ea lth 00:00: 00:00 mg) by 00 :00 oral route 2 times per day carvedilol 2019- No take 1 [facility] 25 mg 11-08 tablet (25 e[facility] tablet 00:00: 00:00 mg) by 00 :00 oral route 2 times per day with food clopidogrel No take 1 [facility] 75 mg 11-08 tablet (75 ealth tablet 00:00: 00:00 mg) by 00 :00 oral route once daily gabapentin No 1{table Q8H take 1 A ccess[facility] 800 mg 11-08 t} tablet by ealth tablet 00:00: 00:00 oral route 00 :00 3 times every day Humalog inject [facility] KwikPen 11-08 5-10 Units ealth (U-100) 00:00: 00:00 by Insulin 100 00 :00 Subcutaneo unit/mL us route 3 subcutaneou times per s day on a sliding scale three times a day before meals isosorbide take 1 [facility] mononitrate 11-08 tablet (60 e alth ER 60 mg 00:00: 00:00 mg) by tablet,exte 00 :00 oral route nded once daily release 24 in the hr morning Levemir inject 50 [facility] FlexTouch 11-08 Units by ealth U-100 00:00: 00:00 Subcutaneo Insulin 100 00 :00 us route 2 unit/mL (3 times per mL) day in the subcutaneou morning s pen and evening lisinopril take 1 [facility] 40 mg 11-08 tablet (40 ealth tablet 00:00: 00:00 mg) by 00 :00 oral route once daily metolazone take 1 [facility] 5 mg tablet 11-08 tablet (5 ea lth 00:00: 00:00 mg) by 00 :00 oral route once daily amlodipine take 1 [facility] 5 mg tablet 11-08 tablet (5 ea lth 00:00: 00:00 mg) by 00 :00 oral route once daily atorvastati take 1 [facility] n 80 mg 11-08 tablet by ealth tablet 00:00: 00:00 Oral route 00 :00 1 time per day bumetanide 2019- No take 1 [facility] 1 mg tablet 11-08 tablet (1 ea lth 00:00: 00:00 mg) by 00 :00 oral route 2 times per day carvedilol No take 1 [facility] 25 mg 11-08 tablet (25 ealth tablet 00:00: 00:00 mg) by 00 :00 oral route 2 times per day with food clopidogrel take 1 [facility] 75 mg 11-08 tablet (75 ealth tablet 00:00: 00:00 mg) by 00 :00 oral route once daily gabapentin 2019- No 1{table Q8H take 1 A [facility]cess[facility] 800 mg 11-08 t} tablet by ealth tablet 00:00: 00:00 oral route 00 :00 3 times every day Humalog inject [facility] KwikPen 11-08 5-10 Units ealth (U-100) 00:00: 00:00 by Insulin 100 00 :00 Subcutaneo unit/mL us route 3 subcutaneou times per s day on a sliding scale three times a day before meals isosorbide 2019- take 1 [facility] mononitrate 11-08 tablet (60 e alth ER 60 mg 00:00: 00:00 mg) by tablet,exte 00 :00 oral route nded once daily release 24 in the hr morning Levemir inject 50 [facility] FlexTouch 11-08 Units by ealth U-100 00:00: 00:00 Subcutaneo Insulin 100 00 :00 us route 2 unit/mL (3 times per mL) day in the subcutaneou morning s pen and evening lisinopril 2019- No take 1 [facility] 40 mg 11-08 tablet (40 ealth tablet 00:00: 00:00 mg) by 00 :00 oral route once daily metolazone No take 1 [facility] 5 mg tablet 11-08 tablet (5 ea lth 00:00: 00:00 mg) by 00 :00 oral route once daily amlodipine take 1 [facility] 5 mg tablet 11-08 tablet (5 ea lth 00:00: 00:00 mg) by 00 :00 oral route once daily atorvastati take 1 [facility] n 80 mg 11-08 tablet by ealth tablet 00:00: 00:00 Oral route 00 :00 1 time per day bumetanide No take 1 [facility] 1 mg tablet 11-08 tablet (1 ea lth 00:00: 00:00 mg) by 00 :00 oral route 2 times per day carvedilol take 1 [facility] 25 mg 11-08 tablet (25 e[facility] tablet 00:00: 00:00 mg) by 00 :00 oral route 2 times per day with food clopidogrel take 1 [facility] 75 mg 11-08 tablet (75 ealth tablet 00:00: 00:00 mg) by 00 :00 oral route once daily gabapentin No 1{table Q8H take 1 A [facility]cess[facility] 800 mg 11-08 t} tablet by ealth tablet 00:00: 00:00 oral route 00 :00 3 times every day Humalog inject [facility] KwikPen 11-08 5-10 Units ealth (U-100) 00:00: 00:00 by Insulin 100 00 :00 Subcutaneo unit/mL us route 3 subcutaneou times per s day on a sliding scale three times a day before meals isosorbide No take 1 [facility] mononitrate 11-08 tablet (60 e alth ER 60 mg 00:00: 00:00 mg) by tablet,exte 00 :00 oral route nded once daily release 24 in the hr morning Levemir inject 50 [facility] FlexTouch 11-08 Units by ealth U-100 00:00: 00:00 Subcutaneo Insulin 100 00 :00 us route 2 unit/mL (3 times per mL) day in the subcutaneou morning s pen and evening lisinopril take 1 [facility] 40 mg 11-08 tablet (40 ealth tablet 00:00: 00:00 mg) by 00 :00 oral route once daily metolazone No take 1 [facility] 5 mg tablet 11-08 tablet (5 ea lth 00:00: 00:00 mg) by 00 :00 oral route once daily amlodipine No take 1 [facility] 5 mg tablet 11-08 tablet (5 ea lth 00:00: 00:00 mg) by 00 :00 oral route once daily atorvastati take 1 [facility] n 80 mg 11-08 tablet by ealth tablet 00:00: 00:00 Oral route 00 :00 1 time per day bumetanide take 1 [facility] 1 mg tablet 11-08 tablet (1 ea lth 00:00: 00:00 mg) by 00 :00 oral route 2 times per day carvedilol take 1 [facility] 25 mg 11-08 tablet (25 ealth tablet 00:00: 00:00 mg) by 00 :00 oral route 2 times per day with food clopidogrel take 1 [facility] 75 mg 11-08 tablet (75 ealth tablet 00:00: 00:00 mg) by 00 :00 oral route once daily gabapentin No 1{table Q8H take 1 A [facility]cess[facility] 800 mg 11-08 t} tablet by ealth tablet 00:00: 00:00 oral route 00 :00 3 times every day Humalog inject [facility] KwikPen 11-08 5-10 Units ealth (U-100) 00:00: 00:00 by Insulin 100 00 :00 Subcutaneo unit/mL us route 3 subcutaneou times per s day on a sliding scale three times a day before meals isosorbide 2019- No take 1 [facility] mononitrate 11-08 tablet (60 e alth ER 60 mg 00:00: 00:00 mg) by tablet,exte 00 :00 oral route nded once daily release 24 in the hr morning Levemir 2019- inject 50 [facility] FlexTouch 11-08 Units by ealth U-100 00:00: 00:00 Subcutaneo Insulin 100 00 :00 us route 2 unit/mL (3 times per mL) day in the subcutaneou morning s pen and evening lisinopril 2019- take 1 [facility] 40 mg 11-08 tablet (40 ealth tablet 00:00: 00:00 mg) by 00 :00 oral route once daily metolazone 2019- No take 1 [facility] 5 mg tablet 11-08 tablet (5 ea lth 00:00: 00:00 mg) by 00 :00 oral route once daily amlodipine take 1 [facility] 5 mg tablet 11-08 tablet (5 ea lth 00:00: 00:00 mg) by 00 :00 oral route once daily atorvastati 2019- take 1 [facility] n 80 mg 11-08 tablet by ealth tablet 00:00: 00:00 Oral route 00 :00 1 time per day bumetanide 2019- No take 1 [facility] 1 mg tablet 11-08 tablet (1 ea lth 00:00: 00:00 mg) by 00 :00 oral route 2 times per day carvedilol 2019- No take 1 [facility] 25 mg 11-08 tablet (25 e[facility] tablet 00:00: 00:00 mg) by 00 :00 oral route 2 times per day with food clopidogrel 2019- No take 1 [facility] 75 mg 11-08 tablet (75 ealth tablet 00:00: 00:00 mg) by 00 :00 oral route once daily gabapentin 2019- No 1{table Q8H take 1 A [facility]cess[facility] 800 mg 11-08 t} tablet by ealth tablet 00:00: 00:00 oral route 00 :00 3 times every day Humalog 2019- inject [facility] KwikPen 11-08 5-10 Units ealth (U-100) 00:00: 00:00 by Insulin 100 00 :00 Subcutaneo unit/mL us route 3 subcutaneou times per s day on a sliding scale three times a day before meals isosorbide 2019- No take 1 [facility] mononitrate 11-08 tablet (60 e alth ER 60 mg 00:00: 00:00 mg) by tablet,exte 00 :00 oral route nded once daily release 24 in the hr morning Levemir 2019- inject 50 [facility] FlexTouch 11-08 Units by ealth U-100 00:00: 00:00 Subcutaneo Insulin 100 00 :00 us route 2 unit/mL (3 times per mL) day in the subcutaneou morning s pen and evening lisinopril take 1 [facility] 40 mg 11-08 tablet (40 ealth tablet 00:00: 00:00 mg) by 00 :00 oral route once daily metolazone 2019- No take 1 [facility] 5 mg tablet 11-08 tablet (5 ea lth 00:00: 00:00 mg) by 00 :00 oral route once daily amlodipine 2019- No take 1 [facility] 5 mg tablet 11-08 tablet (5 ea lth 00:00: 00:00 mg) by 00 :00 oral route once daily atorvastati 2019- No take 1 [facility] n 80 mg 11-08 tablet by ealth tablet 00:00: 00:00 Oral route 00 :00 1 time per day bumetanide 2019- No take 1 [facility] 1 mg tablet 11-08 tablet (1 ea lth 00:00: 00:00 mg) by 00 :00 oral route 2 times per day carvedilol 2019- No take 1 [facility] 25 mg 11-08 tablet (25 ealth tablet 00:00: 00:00 mg) by 00 :00 oral route 2 times per day with food clopidogrel 2019- No take 1 [facility] 75 mg 11-08 tablet (75 ealth tablet 00:00: 00:00 mg) by 00 :00 oral route once daily gabapentin 2019- No 1{table Q8H take 1 A [facility]cess[facility] 800 mg 11-08 t} tablet by ealth tablet 00:00: 00:00 oral route 00 :00 3 times every day Humalog 2019- No inject [facility] KwikPen 11-08 5-10 Units ealth (U-100) 00:00: 00:00 by Insulin 100 00 :00 Subcutaneo unit/mL us route 3 subcutaneou times per s day on a sliding scale three times a day before meals isosorbide 2019- No take 1 [facility] mononitrate 11-08 tablet (60 e alth ER 60 mg 00:00: 00:00 mg) by tablet,exte 00 :00 oral route nded once daily release 24 in the hr morning Levemir 2019- No inject 50 [facility] FlexTouch 11-08 Units by ealth U-100 00:00: 00:00 Subcutaneo Insulin 100 00 :00 us route 2 unit/mL (3 times per mL) day in the subcutaneou morning s pen and evening lisinopril 2019- No take 1 [facility] 40 mg 11-08 tablet (40 ealth tablet 00:00: 00:00 mg) by 00 :00 oral route once daily metolazone 2019- No take 1 [facility] 5 mg tablet 11-08 tablet (5 ea lth 00:00: 00:00 mg) by 00 :00 oral route once daily amlodipine 2019- No take 1 [facility] 5 mg tablet 11-08 tablet (5 ea lth 00:00: 00:00 mg) by 00 :00 oral route once daily atorvastati 2019- No take 1 [facility] n 80 mg 11-08 tablet by ealth tablet 00:00: 00:00 Oral route 00 :00 1 time per day bumetanide 2019- No take 1 [facility] 1 mg tablet 11-08 tablet (1 ea lth 00:00: 00:00 mg) by 00 :00 oral route 2 times per day carvedilol take 1 [facility] 25 mg 11-08 tablet (25 ealth tablet 00:00: 00:00 mg) by 00 :00 oral route 2 times per day with food clopidogrel take 1 [facility] 75 mg 11-08 tablet (75 ealth tablet 00:00: 00:00 mg) by 00 :00 oral route once daily gabapentin No 1{table Q8H take 1 A [facility]cess[facility] 800 mg 11-08 t} tablet by ealth tablet 00:00: 00:00 oral route 00 :00 3 times every day Humalog inject [facility] KwikPen 11-08 5-10 Units ealth (U-100) 00:00: 00:00 by Insulin 100 00 :00 Subcutaneo unit/mL us route 3 subcutaneou times per s day on a sliding scale three times a day before meals isosorbide take 1 [facility] mononitrate 11-08 tablet (60 e alth ER 60 mg 00:00: 00:00 mg) by tablet,exte 00 :00 oral route nded once daily release 24 in the hr morning Levemir inject 50 [facility] FlexTouch 11-08 Units by ealth U-100 00:00: 00:00 Subcutaneo Insulin 100 00 :00 us route 2 unit/mL (3 times per mL) day in the subcutaneou morning s pen and evening lisinopril take 1 [facility] 40 mg 11-08 tablet (40 ealth tablet 00:00: 00:00 mg) by 00 :00 oral route once daily metolazone take 1 [facility] 5 mg tablet 11-08 tablet (5 ea lth 00:00: 00:00 mg) by 00 :00 oral route once daily amlodipine take 1 [facility] 5 mg tablet 11-08 tablet (5 ea lth 00:00: 00:00 mg) by 00 :00 oral route once daily atorvastati 2019- No take 1 [facility] n 80 mg 11-08 tablet by ealth tablet 00:00: 00:00 Oral route 00 :00 1 time per day bumetanide 2019- No take 1 [facility] 1 mg tablet 11-08 tablet (1 ea lth 00:00: 00:00 mg) by 00 :00 oral route 2 times per day carvedilol take 1 [facility] 25 mg 11-08 tablet (25 ealth tablet 00:00: 00:00 mg) by 00 :00 oral route 2 times per day with food clopidogrel take 1 [facility] 75 mg 11-08 tablet (75 ealth tablet 00:00: 00:00 mg) by 00 :00 oral route once daily gabapentin No 1{table Q8H take 1 A ccess[facility] 800 mg 11-08 t} tablet by ealth tablet 00:00: 00:00 oral route 00 :00 3 times every day Humalog inject [facility] KwikPen 11-08 5-10 Units ealth (U-100) 00:00: 00:00 by Insulin 100 00 :00 Subcutaneo unit/mL us route 3 subcutaneou times per s day on a sliding scale three times a day before meals isosorbide 2019- No take 1 [facility] mononitrate 11-08 tablet (60 e alth ER 60 mg 00:00: 00:00 mg) by tablet,exte 00 :00 oral route nded once daily release 24 in the hr morning Levemir inject 50 [facility] FlexTouch 11-08 Units by ealth U-100 00:00: 00:00 Subcutaneo Insulin 100 00 :00 us route 2 unit/mL (3 times per mL) day in the subcutaneou morning s pen and evening lisinopril 2019- No take 1 [facility] 40 mg 11-08 tablet (40 ealth tablet 00:00: 00:00 mg) by 00 :00 oral route once daily metolazone take 1 [facility] 5 mg tablet 11-08 tablet (5 ea lth 00:00: 00:00 mg) by 00 :00 oral route once daily amlodipine take 1 [facility] 5 mg tablet 11-08 tablet (5 ea lth 00:00: 00:00 mg) by 00 :00 oral route once daily atorvastati take 1 [facility] n 80 mg 11-08 tablet by ealth tablet 00:00: 00:00 Oral route 00 :00 1 time per day bumetanide take 1 [facility] 1 mg tablet 11-08 tablet (1 ea lth 00:00: 00:00 mg) by 00 :00 oral route 2 times per day carvedilol take 1 [facility] 25 mg 11-08 tablet (25 ealth tablet 00:00: 00:00 mg) by 00 :00 oral route 2 times per day with food clopidogrel take 1 [facility] 75 mg 11-08 tablet (75 ealth tablet 00:00: 00:00 mg) by 00 :00 oral route once daily gabapentin 1{table Q8H take 1 A ccess[facility] 800 mg 11-08 t} tablet by ealth tablet 00:00: 00:00 oral route 00 :00 3 times every day Humalog inject [facility] KwikPen 11-08 5-10 Units ealth (U-100) 00:00: 00:00 by Insulin 100 00 :00 Subcutaneo unit/mL us route 3 subcutaneou times per s day on a sliding scale three times a day before meals isosorbide take 1 [facility] mononitrate 11-08 tablet (60 e alth ER 60 mg 00:00: 00:00 mg) by tablet,exte 00 :00 oral route nded once daily release 24 in the hr morning Levemir inject 50 [facility] FlexTouch 8-13 12-09 Units by ealth U-100 00:00: 00:00 Subcutaneo Insulin 100 00 :00 us route 2 unit/mL (3 times per mL) [facility] lisinopril 2019- No take 1 [facility] 40 mg 11-08 tablet (40 ealth tablet 00:00: 00:00 mg) by 00 :00 oral route once daily metolazone 2019- No take 1 [facility] 5 mg tablet 11-08 tablet (5 ea lth 00:00: 00:00 mg) by 00 :00 oral route once daily isosorbide 2019- No take 1 [facility] mononitrate 11-08 tablet (60 e alth ER 60 mg 00:00: 00:00 mg) by tablet,exte 00 :00 oral route nded once daily release 24 in the hr morning Levemir 2019- No inject 50 [facility] FlexTouch 11-08 Units by ealth U-100 00:00: 00:00 Subcutaneo Insulin 100 00 :00 us route 2 unit/mL (3 times per mL) day in the [facility] morning s pen and evening lisinopril No take 1 [facility] 40 mg 11-08 tablet (40 ealth tablet 00:00: 00:00 mg) by 00 :00 oral route once daily metolazone 2019- No take 1 [facility] 5 mg tablet 11-08 tablet (5 ea lth 00:00: 00:00 mg) by 00 :00 oral route once daily amlodipine 2019- No take 1 [facility] 5 mg tablet 11-08 tablet (5 ea lth 00:00: 00:00 mg) by 00 :00 oral route once daily atorvastati 2019- No take 1 [facility] n 80 mg 11-08 tablet by ealth tablet 00:00: 00:00 Oral route 00 :00 1 time per day bumetanide 2019- No take 1 [facility] 1 mg tablet 11-08 tablet (1 ea lth 00:00: 00:00 mg) by 00 :00 oral route 2 times per day carvedilol 2019- No take 1 [facility] 25 mg 11-08 tablet (25 ealth tablet 00:00: 00:00 mg) by 00 :00 oral route 2 times per day with food clopidogrel 2019- No take 1 [facility] 75 mg 11-08 tablet (75 ealth tablet 00:00: 00:00 mg) by 00 :00 oral route once daily gabapentin 2019- No 1{table Q8H take 1 A ccess[facility] 800 mg 11-08 t} tablet by ealth tablet 00:00: 00:00 oral route 00 :00 3 times every day Humalog 2019-2019- No inject [facility] KwikPen 11-08 5-10 Units ealth (U-100) 00:00: 00:00 by Insulin 100 00 :00 Subcutaneo unit/mL us route 3 subcutaneou times per s day on a sliding scale three times a day before meals amlodipine 2019- No take 1 [facility] 5 mg tablet 11-08 tablet (5 ea lth 00:00: 00:00 mg) by 00 :00 oral route once daily atorvastati 2019- No take 1 [facility] n 80 mg 11-08 tablet by ealth tablet 00:00: 00:00 Oral route 00 :00 1 time per day bumetanide 2019- No take 1 [facility] 1 mg tablet 11-08 tablet (1 ea lth 00:00: 00:00 mg) by 00 :00 oral route 2 times per day carvedilol 2019- No take 1 [facility] 25 mg 11-08 tablet (25 ealth tablet 00:00: 00:00 mg) by 00 :00 oral route 2 times per day with food clopidogrel 2019- No take 1 [facility] 75 mg 11-08 tablet (75 ealth tablet 00:00: 00:00 mg) by 00 :00 oral route once daily gabapentin 2019- No 1{table Q8H take 1 A ccess[facility] 800 mg 11-08 t} tablet by ealth tablet 00:00: 00:00 oral route 00 :00 3 times every day Humalog 2019- No inject [facility] KwikPen 11-08 5-10 Units ealth (U-100) 00:00: 00:00 by Insulin 100 00 :00 Subcutaneo unit/mL us route 3 subcutaneou times per s day on a sliding scale three times a day before meals isosorbide 2019- No take 1 [facility] mononitrate 11-08 tablet (60 e alth ER 60 mg 00:00: 00:00 mg) by tablet,exte 00 :00 oral route nded once daily release 24 in the hr morning Levemir 2019- inject 50 [facility] FlexTouch 11-08 Units by ealth U-100 00:00: 00:00 Subcutaneo Insulin 100 00 :00 us route 2 unit/mL (3 times per mL) day in the subcutaneou morning s pen and evening lisinopril 2019- No take 1 [facility] 40 mg 11-08 tablet (40 ealth tablet 00:00: 00:00 mg) by 00 :00 oral route once daily metolazone 2019- No take 1 [facility] 5 mg tablet 11-08 tablet (5 ea lth 00:00: 00:00 mg) by 00 :00 oral route once daily amlodipine 2019- No take 1 [facility] 5 mg tablet 11-08 tablet (5 ea lth 00:00: 00:00 mg) by 00 :00 oral route once daily atorvastati 2019- No take 1 [facility] n 80 mg 11-08 tablet by ealth tablet 00:00: 00:00 Oral route 00 :00 1 time per day bumetanide 2019- No take 1 [facility] 1 mg tablet 11-08 tablet (1 ea lth 00:00: 00:00 mg) by 00 :00 oral route 2 times per day carvedilol 2019- No take 1 [facility] 25 mg 11-08 tablet (25 ealth tablet 00:00: 00:00 mg) by 00 :00 oral route 2 times per day with food clopidogrel 2019- No take 1 [facility] 75 mg 11-08 tablet (75 ealth tablet 00:00: 00:00 mg) by 00 :00 oral route once daily gabapentin 2019- No 1{table Q8H take 1 A ccess[facility] 800 mg 11-08 t} tablet by ealth tablet 00:00: 00:00 oral route 00 :00 3 times every day Humalog inject [facility] KwikPen 11-08 5-10 Units ealth (U-100) 00:00: 00:00 by Insulin 100 00 :00 Subcutaneo unit/mL us route 3 subcutaneou times per s day on a sliding scale three times a day before meals isosorbide 2019- No take 1 [facility] mononitrate 11-08 tablet (60 e alth ER 60 mg 00:00: 00:00 mg) by tablet,exte 00 :00 oral route nded once daily release 24 in the hr morning Levemir inject 50 [facility] FlexTouch 11-08 Units by ealth U-100 00:00: 00:00 Subcutaneo Insulin 100 00 :00 us route 2 unit/mL (3 times per mL) day in the subcutaneou morning s pen and evening lisinopril 2019- No take 1 [facility] 40 mg 11-08 tablet (40 ealth tablet 00:00: 00:00 mg) by 00 :00 oral route once daily metolazone 2019- No take 1 [facility] 5 mg tablet 11-08 tablet (5 ea lth 00:00: 00:00 mg) by 00 :00 oral route once daily amlodipine take 1 [facility] 5 mg tablet 11-08 tablet (5 ea lth 00:00: 00:00 mg) by 00 :00 oral route once daily atorvastati 2019- No take 1 [facility] n 80 mg 11-08 tablet by ealth tablet 00:00: 00:00 Oral route 00 :00 1 time per day bumetanide 2019- No take 1 [facility] 1 mg tablet 11-08 tablet (1 ea lth 00:00: 00:00 mg) by 00 :00 oral route 2 times per day carvedilol No take 1 [facility] 25 mg 11-08 tablet (25 ealth tablet 00:00: 00:00 mg) by 00 :00 oral route 2 times per day with food clopidogrel No take 1 Acc [facility] 75 mg 11-08 tablet (75 ealth tablet 00:00: 00:00 mg) by 00 :00 oral route once daily gabapentin No 1{table Q8H take 1 A ccess[facility] 800 mg 11-08 t} tablet by ealth tablet 00:00: 00:00 oral route 00 :00 3 times every day Humalog inject [facility] KwikPen 11-08 5-10 Units ealth (U-100) 00:00: 00:00 by Insulin 100 00 :00 Subcutaneo unit/mL us route 3 subcutaneou times per s day on a sliding scale three times a day before meals isosorbide take 1 [facility] mononitrate 11-08 tablet (60 e alth ER 60 mg 00:00: 00:00 mg) by tablet,exte 00 :00 oral route nded once daily release 24 in the hr morning Levemir No inject 50 [facility] FlexTouch 11-08 Units by ealth U-100 00:00: 00:00 Subcutaneo Insulin 100 00 :00 us route 2 unit/mL (3 times per mL) day in the subcutaneou morning s pen and evening lisinopril No take 1 [facility] 40 mg 11-08 tablet (40 ealth tablet 00:00: 00:00 mg) by 00 :00 oral route once daily metolazone No take 1 [facility] 5 mg tablet 11-08 tablet (5 ea lth 00:00: 00:00 mg) by 00 :00 oral route once daily amlodipine No take 1 [facility] 5 mg tablet 11-08 tablet (5 ea lth 00:00: 00:00 mg) by 00 :00 oral route once daily atorvastati take 1 Acc [facility] n 80 mg 11-08 tablet by ealth tablet 00:00: 00:00 Oral route 00 :00 1 time per day bumetanide take 1 [facility] 1 mg tablet 11-08 tablet (1 ea lth 00:00: 00:00 mg) by 00 :00 oral route 2 times per day carvedilol take 1 [facility] 25 mg 11-08 tablet (25 ealth tablet 00:00: 00:00 mg) by 00 :00 oral route 2 times per day with food clopidogrel take 1 Acc [facility] 75 mg 11-08 tablet (75 ealth tablet 00:00: 00:00 mg) by 00 :00 oral route once daily gabapentin No 1{table Q8H take 1 A ccess[facility] 800 mg 11-08 t} tablet by ealth tablet 00:00: 00:00 oral route 00 :00 3 times every day Humalog inject Access[facility] KwikPen 11-08 5-10 Units ealth (U-100) 00:00: 00:00 by Insulin 100 00 :00 Subcutaneo unit/mL us route 3 subcutaneou times per s day on a sliding scale three times a day before meals isosorbide No take 1 [facility] mononitrate 11-08 tablet (60 e alth ER 60 mg 00:00: 00:00 mg) by tablet,exte 00 :00 oral route nded once daily release 24 in the hr morning Levemir No inject 50 Acce ss[facility] FlexTouch 11-08 Units by ealth U-100 00:00: 00:00 Subcutaneo Insulin 100 00 :00 us route 2 unit/mL (3 times per mL) day in the subcutaneou morning s pen and evening lisinopril 2019- No take 1 [facility] 40 mg 11-08 tablet (40 ealth tablet 00:00: 00:00 mg) by 00 :00 oral route once daily metolazone 2019- No take 1 [facility] 5 mg tablet 11-08 tablet (5 ea lth 00:00: 00:00 mg) by 00 :00 oral route once daily amlodipine take 1 [facility] 5 mg tablet 11-08 tablet (5 ea lth 00:00: 00:00 mg) by 00 :00 oral route once daily atorvastati take 1 Acc ess[facility] n 80 mg 11-08 tablet by ealth tablet 00:00: 00:00 Oral route 00 :00 1 time per day bumetanide 2019- No take 1 [facility] 1 mg tablet 11-08 tablet (1 ea lth 00:00: 00:00 mg) by 00 :00 oral route 2 times per day carvedilol take 1 [facility] 25 mg 11-08 tablet (25 [facility] tablet 00:00: 00:00 mg) by 00 :00 oral route 2 times per day with food clopidogrel take 1 [facility] 75 mg 11-08 tablet (75 [facility] tablet 00:00: 00:00 mg) by 00 :00 oral route once daily gabapentin 2019- No 1{table Q8H take 1 A ccess[facility] 800 mg 11-08 t} tablet by [facility] tablet 00:00: 00:00 oral route 00 :00 3 times every day Humalog 2019- inject [facility] KwikPen 11-08 5-10 Units e[facility] (U-100) 00:00: 00:00 by Insulin 100 00 :00 Subcutaneo unit/mL us route 3 subcutaneou times per s day on a sliding scale three times a day before meals isosorbide 2019- No take 1 [facility] mononitrate 11-08 tablet (60 e alth ER 60 mg 00:00: 00:00 mg) by tablet,exte 00 :00 oral route nded once daily release 24 in the hr morning Levemir 2019- inject 50 [facility] FlexTouch 11-08 Units by ealt U-100 00:00: 00:00 Subcutaneo Insulin 100 00 :00 us route 2 unit/mL (3 times per mL) day in the subcutaneou morning s pen and evening lisinopril take 1 [facility] 40 mg 11-08 tablet (40 [facility] tablet 00:00: 00:00 mg) by 00 :00 oral route once daily metolazone take 1 [facility] 5 mg tablet 11-08 tablet (5 ea lth 00:00: 00:00 mg) by 00 :00 oral route once daily amlodipine take 1 [facility] 5 mg tablet 11-08 tablet (5 ea lth 00:00: 00:00 mg) by 00 :00 oral route once daily atorvastati take 1 [facility] n 80 mg 11-08 tablet by [facility] tablet 00:00: 00:00 Oral route 00 :00 1 time per day bumetanide 2019- take 1 [facility] 1 mg tablet 11-08 tablet (1 ea lth 00:00: 00:00 mg) by 00 :00 oral route 2 times per day carvedilol No take 1 [facility] 25 mg 11-08 tablet (25 [facility] tablet 00:00: 00:00 mg) by 00 :00 oral route 2 times per day with food clopidogrel take 1 [facility] 75 mg 11-08 tablet (75 [facility] tablet 00:00: 00:00 mg) by 00 :00 oral route once daily gabapentin 2019- No 1{table Q8H take 1 A [facility] 800 mg 11-08 t} tablet by [facility] tablet 00:00: 00:00 oral route 00 :00 3 times every day Humalog inject [facility] KwikPen 11-08 5-10 Units e[facility] (U-100) 00:00: 00:00 by Insulin 100 00 :00 Subcutaneo unit/mL us route 3 subcutaneou times per s day on a sliding scale three times a day before meals isosorbide 2019- No take 1 [facility] mononitrate 11-08 tablet (60 e alth ER 60 mg 00:00: 00:00 mg) by tablet,exte 00 :00 oral route nded once daily release 24 in the hr morning Levemir 2019- No inject 50 [facility] FlexTouch 11-08 Units by [facility] U-100 00:00: 00:00 Subcutaneo Insulin 100 00 :00 us route 2 unit/mL (3 times per mL) day in the subcutaneou morning s pen and evening lisinopril 2019- No take 1 [facility] 40 mg 11-08 tablet (40 [facility] tablet 00:00: 00:00 mg) by 00 :00 oral route once daily metolazone 2019- No take 1 [facility] 5 mg tablet 11-08 tablet (5 ea lth 00:00: 00:00 mg) by 00 :00 oral route once daily gabapentin 2019- No 1{table Q8H take 1 [facility] 800 mg 11-08 t} tablet by [facility] tablet 00:00: 00:00 oral route 00 :00 3 times every day gabapentin 2019- 2020- No 1{table Q8H take 1 [facility] 800 mg 11-08 t} tablet by [facility] tablet 00:00: 00:00 oral route 00 :00 3 times every day gabapentin 2019-0 2020- No 1{table Q8H take 1 [facility] 800 mg 11-08 t} tablet by [facility] tablet 00:00: 00:00 oral route 00 :00 3 times every day gabapentin 2019-0 2020- No 1{table Q8H take 1 [facility] 800 mg 11-08 t} tablet by [facility] tablet 00:00: 00:00 oral route 00 :00 3 times every day gabapentin 2019-0 2020- No 1{table Q8H take 1 [facility] 800 mg 8-13 08-13 t} tablet by [facility] tablet 00:00: 00:00 oral route 00 :00 3 times every day gabapentin 2020-0 2020- No 1{table Q8H take 1 [facility] 800 mg 8-13 08-13 t} tablet by [facility] tablet 00:00: 00:00 oral route 00 :00 3 times every day gabapentin 2020-0 2020- No 1{table Q8H take 1 [facility] 800 mg 8-13 08-13 t} tablet by [facility] tablet 00:00: 00:00 oral route 00 :00 3 times every day gabapentin 2020-0 2020- No 1{table Q8H take 1 A [facility] 800 mg 8-13 08-13 t} tablet by [facility] tablet 00:00: 00:00 oral route 00 :00 3 times every day gabapentin 2020-0 2020- No 1{table Q8H take 1 [facility] 800 mg 8-13 08-13 t} tablet by [facility] tablet 00:00: 00:00 oral route 00 :00 3 times every day gabapentin 2020-0 2020- No 1{table Q8H take 1 A [facility] 800 mg 8-13 08-13 t} tablet by [facility] tablet 00:00: 00:00 oral route 00 :00 3 times every day gabapentin 2020-0 2020- No 1{table Q8H take 1 A [facility] 800 mg 8-13 08-13 t} tablet by [facility] tablet 00:00: 00:00 oral route 00 :00 3 times every day gabapentin 2020-0 2020- No 1{table Q8H take 1 A [facility] 800 mg 8-13 08-13 t} tablet by [facility] tablet 00:00: 00:00 oral route 00 :00 3 times every day gabapentin 2020-0 2020- No 1{table Q8H take 1 [facility] 800 mg 8-13 08-13 t} tablet by [facility] tablet 00:00: 00:00 oral route 00 :00 3 times every day gabapentin 2020-0 2020- No 1{table Q8H take 1 [facility] 800 mg 8-13 08-13 t} tablet by [facility] tablet 00:00: 00:00 oral route 00 :00 3 times every day gabapentin 2020-0 2020- No 1{table Q8H take 1 [facility] 800 mg 8-13 08-13 t} tablet by [facility] tablet 00:00: 00:00 oral route 00 :00 3 times every day gabapentin 2020-0 2020- No 1{table Q8H take 1 [facility] 800 mg 8-13 08-13 t} tablet by [facility] tablet 00:00: 00:00 oral route 00 :00 3 times every day gabapentin 2020-0 2020- No 1{table Q8H take 1 A [facility] 800 mg 8-13 08-13 t} tablet by [facility] tablet 00:00: 00:00 oral route 00 :00 3 times every day gabapentin 2020-0 2020- No 1{table Q8H take 1 A [facility] 800 mg 8-13 08-13 t} tablet by [facility] tablet 00:00: 00:00 oral route 00 :00 3 times every day gabapentin 2020-0 2020- No 1{table Q8H take 1 A [facility] 800 mg 8-13 08-13 t} tablet by [facility] tablet 00:00: 00:00 oral route 00 :00 3 times every day gabapentin 2020-0 2020- No 1{table Q8H take 1 [facility] 800 mg 8-13 08-13 t} tablet by [facility] tablet 00:00: 00:00 oral route 00 :00 3 times every day gabapentin 2020-0 2020- No 1{table Q8H take 1 [facility] 800 mg 8-13 08-13 t} tablet by [facility] tablet 00:00: 00:00 oral route 00 :00 3 times every day gabapentin 2020-0 2020- No 1{table Q8H take 1 [facility] 800 mg 8-13 08-13 t} tablet by [facility] tablet 00:00: 00:00 oral route 00 :00 3 times every day gabapentin 2020-0 2020- No 1{table Q8H take 1 [facility] 800 mg 8-13 08-13 t} tablet by [facility] tablet 00:00: 00:00 oral route 00 :00 3 times every day gabapentin 2020-0 2020- No 1{table Q8H take 1 [facility] 800 mg 8-13 08-13 t} tablet by [facility] tablet 00:00: 00:00 oral route 00 :00 3 times every day gabapentin 2020-0 2020- No 1{table Q8H take 1 [facility] 800 mg 8-13 08-13 t} tablet by [facility] tablet 00:00: 00:00 oral route 00 :00 3 times every day gabapentin 2020-0 2020- No 1{table Q8H take 1 [facility] 800 mg 8-13 08-13 t} tablet by [facility] tablet 00:00: 00:00 oral route 00 :00 3 times every day gabapentin 2020-0 2020- No 1{table Q8H take 1 [facility] 800 mg 8-13 08-13 t} tablet by [facility] tablet 00:00: 00:00 oral route 00 :00 3 times every day gabapentin 2020-0 2020- No 1{table Q8H take 1 A [facility] 800 mg 8-13 08-13 t} tablet by [facility] tablet 00:00: 00:00 oral route 00 :00 3 times every day gabapentin 2020-0 2020- No 1{table Q8H take 1 [facility] 800 mg 8-13 08-13 t} tablet by [facility] tablet 00:00: 00:00 oral route 00 :00 3 times every day gabapentin 2020-0 2020- No 1{table Q8H take 1 [facility] 800 mg 8-13 08-13 t} tablet by [facility] tablet 00:00: 00:00 oral route 00 :00 3 times every day gabapentin 2020-0 2020- No 1{table Q8H take 1 A [facility] 800 mg 8-13 08-13 t} tablet by [facility] tablet 00:00: 00:00 oral route 00 :00 3 times every day gabapentin 2020-0 2020- No 1{table Q8H take 1 A [facility] 800 mg 8-13 08-13 t} tablet by [facility] tablet 00:00: 00:00 oral route 00 :00 3 times every day gabapentin 2020-0 2020- No 1{table Q8H take 1 A [facility] 800 mg 8-13 08-13 t} tablet by [facility] tablet 00:00: 00:00 oral route 00 :00 3 times every day gabapentin 2020-0 2020- No 1{table Q8H take 1 A [facility] 800 mg 8-13 08-13 t} tablet by [facility] tablet 00:00: 00:00 oral route 00 :00 3 times every day gabapentin 2020-0 2020- No 1{table Q8H take 1 A [facility] 800 mg 8-13 08-13 t} tablet by [facility] tablet 00:00: 00:00 oral route 00 :00 3 times every day gabapentin 2020-0 2020- No 1{table Q8H take 1 [facility] 800 mg 8-13 08-13 t} tablet by [facility] tablet 00:00: 00:00 oral route 00 :00 3 times every day gabapentin 2020-0 2020- No 1{table Q8H take 1 [facility] 800 mg 8-13 08-13 t} tablet by [facility] tablet 00:00: 00:00 oral route 00 :00 3 times every day gabapentin 2020-0 2020- No 1{table Q8H take 1 A [facility] 800 mg 8-13 08-13 t} tablet by [facility] tablet 00:00: 00:00 oral route 00 :00 3 times every day gabapentin 2020-0 2020- No 1{table Q8H take 1 A [facility] 800 mg 8-13 08-13 t} tablet by [facility] tablet 00:00: 00:00 oral route 00 :00 3 times every day gabapentin 2020-0 2020- No 1{table Q8H take 1 [facility] 800 mg 8-13 08-13 t} tablet by [facility] tablet 00:00: 00:00 oral route 00 :00 3 times every day gabapentin 2020-0 2020- No 1{table Q8H take 1 [facility] 800 mg 8-13 08-13 t} tablet by [facility] tablet 00:00: 00:00 oral route 00 :00 3 times every day gabapentin 2020-0 2020- No 1{table Q8H take 1 A [facility] 800 mg 8-13 08-13 t} tablet by [facility] tablet 00:00: 00:00 oral route 00 :00 3 times every day gabapentin 2020-0 2020- No 1{table Q8H take 1 [facility] 800 mg 8-13 08-13 t} tablet by [facility] tablet 00:00: 00:00 oral route 00 :00 3 times every day gabapentin 2020-0 2020- No 1{table Q8H take 1 [facility] 800 mg 8-13 08-13 t} tablet by [facility] tablet 00:00: 00:00 oral route 00 :00 3 times every day gabapentin 2020-0 2020- No 1{table Q8H take 1 A [facility] 800 mg 8-13 08-13 t} tablet by [facility] tablet 00:00: 00:00 oral route 00 :00 3 times every day gabapentin 2020-0 2020- No 1{table Q8H take 1 A [facility] 800 mg 8-13 08-13 t} tablet by [facility] tablet 00:00: 00:00 oral route 00 :00 3 times every day gabapentin 2020-0 2020- No 1{table Q8H take 1 A [facility] 800 mg 8-13 08-13 t} tablet by [facility] tablet 00:00: 00:00 oral route 00 :00 3 times every day gabapentin 2020-0 2020- No 1{table Q8H take 1 A [facility] 800 mg 8-13 08-13 t} tablet by [facility] tablet 00:00: 00:00 oral route 00 :00 3 times every day gabapentin 2020-0 2020- No 1{table Q8H take 1 A [facility] 800 mg 8-13 08-13 t} tablet by [facility] tablet 00:00: 00:00 oral route 00 :00 3 times every day gabapentin 2020-0 2020- No 1{table Q8H take 1 [facility] 800 mg 8-13 08-13 t} tablet by [facility] tablet 00:00: 00:00 oral route 00 :00 3 times every day gabapentin 2020-0 2020- No 1{table Q8H take 1 [facility] 800 mg 8-13 08-13 t} tablet by [facility] tablet 00:00: 00:00 oral route 00 :00 3 times every day gabapentin 2020-0 2020- No 1{table Q8H take 1 A [facility] 800 mg 8-13 08-13 t} tablet by [facility] tablet 00:00: 00:00 oral route 00 :00 3 times every day gabapentin 2020-0 2020- No 1{table Q8H take 1 A [facility] 800 mg 8-13 08-13 t} tablet by [facility] tablet 00:00: 00:00 oral route 00 :00 3 times every day gabapentin 2020-0 2020- No 1{table Q8H take 1 [facility] 800 mg 11-08 t} [facility]: 00:00 oral route 00 :00 3 times every day bumetanide 2019-2019- No take 1 [facility] 1 mg tablet 09-27 tablet (1 ea lt 00:00: 00:00 mg) by 00 :00 oral route 2 times per day bumetanide 2019- No take 1 [facility] 1 mg tablet 09-27 tablet (1 ea lt 00:00: 00:00 mg) by 00 :00 oral route 2 times per day bumetanide 2019- No take 1 [facility] 1 mg tablet 09-27 tablet (1 ea lt 00:00: 00:00 mg) by 00 :00 oral route 2 times per day bumetanide 2019- No take 1 [facility] 1 mg tablet 09-27 tablet (1 ea lt 00:00: 00:00 mg) by 00 :00 oral route 2 times per day bumetanide 2019- No take 1 [facility] 1 mg tablet 09-27 tablet (1 ea lt 00:00: 00:00 mg) by 00 :00 oral route 2 times per day bumetanide 2019- No take 1 [facility] 1 mg tablet 09-27 tablet (1 ea lt 00:00: 00:00 mg) by 00 :00 oral route 2 times per day bumetanide 2019- No take 1 [facility] 1 mg tablet 09-27 tablet (1 ea lt 00:00: 00:00 mg) by 00 :00 oral route 2 times per day bumetanide 2019- No take 1 [facility] 1 mg tablet 09-27 tablet (1 ea lth 00:00: 00:00 mg) by 00 :00 oral route 2 times per day bumetanide 2019- No take 1 [facility] 1 mg tablet 09-27 tablet (1 ea lth 00:00: 00:00 mg) by 00 :00 oral route 2 times per day bumetanide 2019- No take 1 [facility] 1 mg tablet 09-27- tablet (1 ea lth 00:00: 00:00 mg) by 00 :00 oral route 2 times per day bumetanide 2019-2019- No take 1 [facility] 1 mg tablet 09-27- tablet (1 ea lth 00:00: 00:00 mg) by 00 :00 oral route 2 times per day bumetanide 2019- No take 1 [facility] 1 mg tablet 09-27 tablet (1 ea lth 00:00: 00:00 mg) by 00 :00 oral route 2 times per day bumetanide 2019- No take 1 [facility] 1 mg tablet 09-27 tablet (1 ea lth 00:00: 00:00 mg) by 00 :00 oral route 2 times per day bumetanide 2019-2019- No take 1 [facility] 1 mg tablet 09-27 tablet (1 ea lth 00:00: 00:00 mg) by 00 :00 oral route 2 times per day bumetanide 2019- No take 1 [facility] 1 mg tablet 09-27 tablet (1 ea lth 00:00: 00:00 mg) by 00 :00 oral route 2 times per day bumetanide 2019-2019- No take 1 [facility] 1 mg tablet 09-27 tablet (1 ea lth 00:00: 00:00 mg) by 00 :00 oral route 2 times per day bumetanide 2019-2019- No take 1 [facility] 1 mg tablet 09-27 tablet (1 ea lth 00:00: 00:00 mg) by 00 :00 oral route 2 times per day bumetanide 2019-2019- No take 1 [facility] 1 mg tablet 09-27- tablet (1 ea lth 00:00: 00:00 mg) by 00 :00 oral route 2 times per day bumetanide 2019-2019- No take 1 [facility] 1 mg tablet 09-27 tablet (1 ea lth 00:00: 00:00 mg) by 00 :00 oral route 2 times per day bumetanide 2019-2019- No take 1 [facility] 1 mg tablet 09-27- tablet (1 ea lth 00:00: 00:00 mg) by 00 :00 oral route 2 times per day bumetanide 2019-2019- No take 1 [facility] 1 mg tablet 09-27- tablet (1 ea lth 00:00: 00:00 mg) by 00 :00 oral route 2 times per day bumetanide 2019-2019- No take 1 [facility] 1 mg tablet 09-27 tablet (1 ea lth 00:00: 00:00 mg) by 00 :00 oral route 2 times per day bumetanide 2019-2019- No take 1 [facility] 1 mg tablet 09-27 tablet (1 ea lth 00:00: 00:00 mg) by 00 :00 oral route 2 times per day bumetanide 2019-2019- No take 1 [facility] 1 mg tablet 09-27 tablet (1 ea lth 00:00: 00:00 mg) by 00 :00 oral route 2 times per day bumetanide 2019-2019- No take 1 [facility] 1 mg tablet 09-27 tablet (1 ea lth 00:00: 00:00 mg) by 00 :00 oral route 2 times per day bumetanide 2019-2019- No take 1 [facility] 1 mg tablet 09-27 tablet (1 ea lth 00:00: 00:00 mg) by 00 :00 oral route 2 times per day bumetanide 2019-2019- No take 1 [facility] 1 mg tablet 09-27 tablet (1 ea lth 00:00: 00:00 mg) by 00 :00 oral route 2 times per day Levemir 2019- No inject 50 [facility] FlexTouch 07-03- Units by [facility] U-100 00:00: 00:00 Subcutaneo Insulin 100 00 :00 us route 2 unit/mL (3 times per mL) day in the subcutaneou morning s pen and evening Levemir 2019-2019- No inject 50 [facility] FlexTouch 07-03- Units by [facility]alt U-100 00:00: 00:00 Subcutaneo Insulin 100 00 :00 us route 2 unit/mL (3 times per mL) day in the subcutaneou morning s pen and evening Levemir 2020-0 2020- No inject 50 [facility] FlexTouch 4-07 08-13 Units by [facility] U-100 00:00: 00:00 Subcutaneo Insulin 100 00 :00 us route 2 unit/mL (3 times per mL) day in the subcutaneou morning s pen and evening Levemir 2020-0 2020- No inject 50 [facility] FlexTouch 4-07 08-13 Units by [facility] U-100 00:00: 00:00 Subcutaneo Insulin 100 00 :00 us route 2 unit/mL (3 times per mL) day in the subcutaneou morning s pen and evening Levemir 2020-0 2020- No inject 50 [facility] FlexTouch 4-07 08-13 Units by [facility] U-100 00:00: 00:00 Subcutaneo Insulin 100 00 :00 us route 2 unit/mL (3 times per mL) day in the subcutaneou morning s pen and evening Levemir 2020-0 2020- No inject 50 [facility] FlexTouch 4-07 08-13 Units by [facility] U-100 00:00: 00:00 Subcutaneo Insulin 100 00 :00 us route 2 unit/mL (3 times per mL) day in the subcutaneou morning s pen and evening Levemir 2020-0 2020- No inject 50 [facility] FlexTouch 4-07 08-13 Units by [facility] U-100 00:00: 00:00 Subcutaneo Insulin 100 00 :00 us route 2 unit/mL (3 times per mL) day in the subcutaneou morning s pen and evening Levemir 2020-0 2020- No inject 50 [facility] FlexTouch 4-07 08-13 Units by [facility] U-100 00:00: 00:00 Subcutaneo Insulin 100 00 :00 us route 2 unit/mL (3 times per mL) day in the subcutaneou morning s pen and evening Levemir 2020-0 2020- No inject 50 [facility] FlexTouch 4-07 08-13 Units by [facility] U-100 00:00: 00:00 Subcutaneo Insulin 100 00 :00 us route 2 unit/mL (3 times per mL) day in the subcutaneou morning s pen and evening Levemir 2020-0 2020- No inject 50 [facility] FlexTouch 4-07 08-13 Units by [facility] U-100 00:00: 00:00 Subcutaneo Insulin 100 00 :00 us route 2 unit/mL (3 times per mL) day in the subcutaneou morning s pen and evening Levemir 2020-0 2020- No inject 50 [facility] FlexTouch 4-07 08-13 Units by [facility] U-100 00:00: 00:00 Subcutaneo Insulin 100 00 :00 us route 2 unit/mL (3 times per mL) day in the subcutaneou morning s pen and evening Levemir 2020-0 2020- No inject 50 [facility] FlexTouch 4-07 08-13 Units by [facility] U-100 00:00: 00:00 Subcutaneo Insulin 100 00 :00 us route 2 unit/mL (3 times per mL) day in the subcutaneou morning s pen and evening Levemir 2020-0 2020- No inject 50 [facility] FlexTouch 4-07 08-13 Units by [facility] U-100 00:00: 00:00 Subcutaneo Insulin 100 00 :00 us route 2 unit/mL (3 times per mL) day in the subcutaneou morning s pen and evening Levemir 2020-0 2020- No inject 50 [facility] FlexTouch 4-07 08-13 Units by [facility] U-100 00:00: 00:00 Subcutaneo Insulin 100 00 :00 us route 2 unit/mL (3 times per mL) day in the subcutaneou morning s pen and evening Levemir 2020-0 2020- No inject 50 [facility] FlexTouch 4-07 08-13 Units by [facility] U-100 00:00: 00:00 Subcutaneo Insulin 100 00 :00 us route 2 unit/mL (3 times per mL) day in the subcutaneou morning s pen and evening Levemir 2020-0 2020- No inject 50 [facility] FlexTouch 4-07 08-13 Units by [facility] U-100 00:00: 00:00 Subcutaneo Insulin 100 00 :00 us route 2 unit/mL (3 times per mL) day in the subcutaneou morning s pen and evening Levemir 2020-0 2020- No inject 50 [facility] FlexTouch 4-07 08-13 Units by [facility] U-100 00:00: 00:00 Subcutaneo Insulin 100 00 :00 us route 2 unit/mL (3 times per mL) day in the subcutaneou morning s pen and evening Levemir 2019-0 2020- No inject 50 [facility] FlexTouch 4-07 08-13 Units by [facility] U-100 00:00: 00:00 Subcutaneo Insulin 100 00 :00 us route 2 unit/mL (3 times per mL) day in the subcutaneou morning s pen and evening Levemir 2019- 2020- No inject 50 [facility] FlexTouch 4- 08-13 Units by [facility] U-100 00:00: 00:00 Subcutaneo Insulin 100 00 :00 us route 2 unit/mL (3 times per mL) day in the subcutaneou morning s pen and evening Levemir 2019-0 2020- No inject 50 [facility] FlexTouch 4-07 08-13 Units by [facility] U-100 00:00: 00:00 Subcutaneo Insulin 100 00 :00 us route 2 unit/mL (3 times per mL) day in the subcutaneou morning s pen and evening Levemir 2019-0 2020- No inject 50 [facility] FlexTouch 4-07 08-13 Units by [facility] U-100 00:00: 00:00 Subcutaneo Insulin 100 00 :00 us route 2 unit/mL (3 times per mL) day in the subcutaneou morning s pen and evening Levemir 2020-0 2020- No inject 50 [facility] FlexTouch 4-07 08-13 Units by [facility] U-100 00:00: 00:00 Subcutaneo Insulin 100 00 :00 us route 2 unit/mL (3 times per mL) day in the subcutaneou morning s pen and evening Levemir 2020-0 2020- No inject 50 [facility] FlexTouch 4-07 08-13 Units by [facility] U-100 00:00: 00:00 Subcutaneo Insulin 100 00 :00 us route 2 unit/mL (3 times per mL) day in the subcutaneou morning s pen and evening Levemir 2019-0 2020- No inject 50 [facility] FlexTouch 07-03-13 Units by [facility] U-100 00:00: 00:00 Subcutaneo Insulin 100 00 :00 us route 2 unit/mL (3 times per mL) day in the subcutaneou morning s pen and evening Levemir 2019- 2020- No inject 50 [facility] FlexTouch 07-03-13 Units by [facility] U-100 00:00: 00:00 Subcutaneo Insulin 100 00 :00 us route 2 unit/mL (3 times per mL) day in the subcutaneou morning s pen and evening Levemir 2020- No inject 50 [facility] FlexTouch 07-03-13 Units by [facility] U-100 00:00: 00:00 Subcutaneo Insulin 100 00 :00 us route 2 unit/mL (3 times per mL) day in the subcutaneou morning s pen and evening Levemir 2019- No inject 50 [facility] FlexTouch 07-03-13 Units by [facility] U-100 00:00: 00:00 Subcutaneo Insulin 100 00 :00 us route 2 unit/mL (3 times per mL) day in the subcutaneou morning s pen and evening Humalog 2019- No inject [facility] KwikPen 07-02 5-10 Units [facility] (U-100) 00:00: 00:00 by Insulin 100 00 :00 Subcutaneo unit/mL us route 3 subcutaneou times per s day on a sliding scale three times a day before meals amlodipine 2019- No take 1 [facility] 5 mg tablet 07-02 tablet (5 ea lth 00:00: 00:00 mg) by 00 :00 oral route once daily atorvastati 2019- No take 1 [facility] n 80 mg 07-02 tablet by [facility] tablet 00:00: 00:00 Oral route 00 :00 1 time per day carvedilol 2019- take 1 [facility] 25 mg 07-02 tablet (25 [facility] tablet 00:00: 00:00 mg) by 00 :00 oral route 2 times per day with food clopidogrel No take 1 [facility] 75 mg 07-02 tablet (75 [facility] tablet 00:00: 00:00 mg) by 00 :00 oral route once daily isosorbide take 1 [facility] mononitrate 07-02 tablet (60 e alth ER 60 mg 00:00: 00:00 mg) by tablet,exte 00 :00 oral route nded once daily release 24 in the hr morning lisinopril take 1 [facility] 40 mg 07-02 tablet (40 [facility] tablet 00:00: 00:00 mg) by 00 :00 oral route once daily metolazone take 1 [facility] 5 mg tablet 07-02 tablet (5 ea lth 00:00: 00:00 mg) by 00 :00 oral route once daily Humalog inject [facility] KwikPen 07-02 5-10 Units [facility] (U-100) 00:00: 00:00 by Insulin 100 00 :00 Subcutaneo unit/mL us route 3 subcutaneou times per s day on a sliding scale three times a day before meals amlodipine take 1 [facility] 5 mg tablet 07-02 tablet (5 ea lth 00:00: 00:00 mg) by 00 :00 oral route once daily atorvastati take 1 [facility] n 80 mg 07-02 tablet by [facility] tablet 00:00: 00:00 Oral route 00 :00 1 time per day carvedilol No take 1 [facility] 25 mg 07-02 tablet (25 [facility] tablet 00:00: 00:00 mg) by 00 :00 oral route 2 times per day with food clopidogrel take 1 [facility] 75 mg 07-02 tablet (75 [facility] tablet 00:00: 00:00 mg) by 00 :00 oral route once daily isosorbide 2019- take 1 [facility] mononitrate 07-02 tablet (60 e alth ER 60 mg 00:00: 00:00 mg) by tablet,exte 00 :00 oral route nded once daily release 24 in the hr morning lisinopril take 1 [facility] 40 mg 07-02 tablet (40 [facility] tablet 00:00: 00:00 mg) by 00 :00 oral route once daily metolazone take 1 [facility] 5 mg tablet 07-02 tablet (5 ea lth 00:00: 00:00 mg) by 00 :00 oral route once daily Humalog inject [facility] KwikPen 07-02 5-10 Units [facility] (U-100) 00:00: 00:00 by Insulin 100 00 :00 Subcutaneo unit/mL us route 3 subcutaneou times per s day on a sliding scale three times a day before meals amlodipine take 1 [facility] 5 mg tablet 07-02 tablet (5 ea lth 00:00: 00:00 mg) by 00 :00 oral route once daily atorvastati take 1 [facility] n 80 mg 07-02 tablet by [facility] tablet 00:00: 00:00 Oral route 00 :00 1 time per day carvedilol take 1 [facility] 25 mg 07-02 tablet (25 [facility] tablet 00:00: 00:00 mg) by 00 :00 oral route 2 times per day with food clopidogrel take 1 [facility] 75 mg 07-02 tablet (75 [facility] tablet 00:00: 00:00 mg) by 00 :00 oral route once daily isosorbide take 1 [facility] mononitrate 07-02 tablet (60 e alth ER 60 mg 00:00: 00:00 mg) by tablet,exte 00 :00 oral route nded once daily release 24 in the hr morning lisinopril take 1 [facility] 40 mg 07-02 tablet (40 [facility] tablet 00:00: 00:00 mg) by 00 :00 oral route once daily metolazone No take 1 [facility] 5 mg tablet 07-02 tablet (5 ea lth 00:00: 00:00 mg) by 00 :00 oral route once daily Humalog inject [facility] KwikPen 07-02 5-10 Units [facility] (U-100) 00:00: 00:00 by Insulin 100 00 :00 Subcutaneo unit/mL us route 3 subcutaneou times per s day on a sliding scale three times a day before meals amlodipine take 1 [facility] 5 mg tablet 07-02 tablet (5 ea lth 00:00: 00:00 mg) by 00 :00 oral route once daily atorvastati take 1 Acc essH n 80 mg 07-02 tablet by ealth tablet 00:00: 00:00 Oral route 00 :00 1 time per day carvedilol take 1 [facility] ssH 25 mg 07-02 tablet (25 ealth tablet 00:00: 00:00 mg) by 00 :00 oral route 2 times per day with food clopidogrel take 1 Acc essH 75 mg 07-02 tablet (75 ealth tablet 00:00: 00:00 mg) by 00 :00 oral route once daily isosorbide take 1 [facility] ssH mononitrate 07-02 tablet (60 e alth ER 60 mg 00:00: 00:00 mg) by tablet,exte 00 :00 oral route nded once daily release 24 in the hr morning lisinopril take 1 [facility] ssH 40 mg 07-02 tablet (40 ealth tablet 00:00: 00:00 mg) by 00 :00 oral route once daily metolazone take 1 [facility] 5 mg tablet 07-02 tablet (5 ea lth 00:00: 00:00 mg) by 00 :00 oral route once daily Humalog 2019-2019- No inject [facility] KwikPen 07-02 5-10 Units ealth (U-100) 00:00: 00:00 by Insulin 100 00 :00 Subcutaneo unit/mL us route 3 subcutaneou times per s day on a sliding scale three times a day before meals amlodipine 2019- No take 1 [facility] 5 mg tablet 07-02 tablet (5 ea lth 00:00: 00:00 mg) by 00 :00 oral route once daily atorvastati 2019- No take 1 [facility] n 80 mg 07-02 tablet by ealth tablet 00:00: 00:00 Oral route 00 :00 1 time per day carvedilol 2019- No take 1 [facility] 25 mg 07-02 tablet (25 ealth tablet 00:00: 00:00 mg) by 00 :00 oral route 2 times per day with food clopidogrel 2019- No take 1 [facility] 75 mg 07-02 tablet (75 ealth tablet 00:00: 00:00 mg) by 00 :00 oral route once daily isosorbide 2019- No take 1 [facility] mononitrate 07-02 tablet (60 e alth ER 60 mg 00:00: 00:00 mg) by tablet,exte 00 :00 oral route nded once daily release 24 in the hr morning lisinopril 2019- No take 1 [facility] 40 mg 07-02 tablet (40 e[facility] tablet 00:00: 00:00 mg) by 00 :00 oral route once daily metolazone 2019- No take 1 [facility] 5 mg tablet 07-02 tablet (5 ea lth 00:00: 00:00 mg) by 00 :00 oral route once daily Humalog 2019-2019- No inject [facility] KwikPen 07-02 5-10 Units ealth (U-100) 00:00: 00:00 by Insulin 100 00 :00 Subcutaneo unit/mL us route 3 subcutaneou times per s day on a sliding scale three times a day before meals amlodipine take 1 [facility] 5 mg tablet 07-02 tablet (5 ea lth 00:00: 00:00 mg) by 00 :00 oral route once daily atorvastati No take 1 [facility] n 80 mg 07-02 tablet by ealth tablet 00:00: 00:00 Oral route 00 :00 1 time per day carvedilol take 1 [facility] 25 mg 07-02 tablet (25 ealth tablet 00:00: 00:00 mg) by 00 :00 oral route 2 times per day with food clopidogrel take 1 [facility] 75 mg 07-02 tablet (75 ealth tablet 00:00: 00:00 mg) by 00 :00 oral route once daily isosorbide take 1 [facility] mononitrate 07-02 tablet (60 e alth ER 60 mg 00:00: 00:00 mg) by tablet,exte 00 :00 oral route nded once daily release 24 in the hr morning lisinopril take 1 [facility] 40 mg 07-02 tablet (40 e[facility] tablet 00:00: 00:00 mg) by 00 :00 oral route once daily metolazone take 1 [facility] 5 mg tablet 07-02 tablet (5 ea lth 00:00: 00:00 mg) by 00 :00 oral route once daily Humalog inject [facility] KwikPen 07-02 5-10 Units ealth (U-100) 00:00: 00:00 by Insulin 100 00 :00 Subcutaneo unit/mL us route 3 subcutaneou times per s day on a sliding scale three times a day before meals amlodipine take 1 [facility] 5 mg tablet 07-02 tablet (5 ea lth 00:00: 00:00 mg) by 00 :00 oral route once daily atorvastati 2019- No take 1 [facility] n 80 mg 07-02 tablet by ealth tablet 00:00: 00:00 Oral route 00 :00 1 time per day carvedilol 2019- No take 1 [facility] 25 mg 07-02 tablet (25 ealth tablet 00:00: 00:00 mg) by 00 :00 oral route 2 times per day with food clopidogrel No take 1 [facility] 75 mg 07-02 tablet (75 ealth tablet 00:00: 00:00 mg) by 00 :00 oral route once daily isosorbide take 1 [facility] mononitrate 07-02 tablet (60 e alth ER 60 mg 00:00: 00:00 mg) by tablet,exte 00 :00 oral route nded once daily release 24 in the hr morning lisinopril take 1 [facility] 40 mg 07-02 tablet (40 e[facility] tablet 00:00: 00:00 mg) by 00 :00 oral route once daily metolazone take 1 [facility] 5 mg tablet 07-02 tablet (5 ea lth 00:00: 00:00 mg) by 00 :00 oral route once daily Humalog inject [facility] KwikPen 07-02 5-10 Units ealth (U-100) 00:00: 00:00 by Insulin 100 00 :00 Subcutaneo unit/mL us route 3 subcutaneou times per s day on a sliding scale three times a day before meals amlodipine take 1 [facility] 5 mg tablet 07-02 tablet (5 ea lth 00:00: 00:00 mg) by 00 :00 oral route once daily atorvastati 2019- take 1 [facility] n 80 mg 07-02 tablet by ealth tablet 00:00: 00:00 Oral route 00 :00 1 time per day carvedilol 2019- No take 1 [facility] 25 mg 07-02 tablet (25 ealth tablet 00:00: 00:00 mg) by 00 :00 oral route 2 times per day with food clopidogrel take 1 [facility] 75 mg 07-02 tablet (75 ealth tablet 00:00: 00:00 mg) by 00 :00 oral route once daily isosorbide No take 1 [facility] mononitrate 07-02 tablet (60 e alth ER 60 mg 00:00: 00:00 mg) by tablet,exte 00 :00 oral route nded once daily release 24 in the hr morning lisinopril take 1 [facility] 40 mg 07-02 tablet (40 ealth tablet 00:00: 00:00 mg) by 00 :00 oral route once daily metolazone take 1 [facility] 5 mg tablet 07-02 tablet (5 ea lth 00:00: 00:00 mg) by 00 :00 oral route once daily Humalog inject [facility] KwikPen 07-02 5-10 Units ealth (U-100) 00:00: 00:00 by Insulin 100 00 :00 Subcutaneo unit/mL us route 3 subcutaneou times per s day on a sliding scale three times a day before meals amlodipine No take 1 [facility] 5 mg tablet 07-02 tablet (5 ea lth 00:00: 00:00 mg) by 00 :00 oral route once daily atorvastati take 1 [facility] n 80 mg 07-02 tablet by ealth tablet 00:00: 00:00 Oral route 00 :00 1 time per day carvedilol take 1 [facility] 25 mg 07-02 tablet (25 e[facility] tablet 00:00: 00:00 mg) by 00 :00 oral route 2 times per day with food clopidogrel 2019- No take 1 [facility] 75 mg 07-02 tablet (75 ealth tablet 00:00: 00:00 mg) by 00 :00 oral route once daily isosorbide take 1 [facility] mononitrate 07-02 tablet (60 e alth ER 60 mg 00:00: 00:00 mg) by tablet,exte 00 :00 oral route nded once daily release 24 in the hr morning lisinopril take 1 [facility] 40 mg 07-02 tablet (40 e[facility] tablet 00:00: 00:00 mg) by 00 :00 oral route once daily metolazone take 1 [facility] 5 mg tablet 07-02 tablet (5 ea lth 00:00: 00:00 mg) by 00 :00 oral route once daily Humalog inject [facility] KwikPen 07-02 5-10 Units ealth (U-100) 00:00: 00:00 by Insulin 100 00 :00 Subcutaneo unit/mL us route 3 subcutaneou times per s day on a sliding scale three times a day before meals amlodipine take 1 [facility] 5 mg tablet 07-02 tablet (5 ea lth 00:00: 00:00 mg) by 00 :00 oral route once daily atorvastati take 1 [facility] n 80 mg 07-02 tablet by ealth tablet 00:00: 00:00 Oral route 00 :00 1 time per day carvedilol take 1 [facility] 25 mg 07-02 tablet (25 e[facility] tablet 00:00: 00:00 mg) by 00 :00 oral route 2 times per day with food clopidogrel take 1 [facility] 75 mg 07-02 tablet (75 e[facility] tablet 00:00: 00:00 mg) by 00 :00 oral route once daily isosorbide take 1 [facility] mononitrate 07-02 tablet (60 e alth ER 60 mg 00:00: 00:00 mg) by tablet,exte 00 :00 oral route nded once daily release 24 in the hr morning lisinopril take 1 [facility] 40 mg 07-02 tablet (40 e[facility] tablet 00:00: 00:00 mg) by 00 :00 oral route once daily metolazone take 1 [facility] 5 mg tablet 07-02 tablet (5 ea lth 00:00: 00:00 mg) by 00 :00 oral route once daily Humalog 2019- No inject [facility] KwikPen 07-02 5-10 Units ealth (U-100) 00:00: 00:00 by Insulin 100 00 :00 Subcutaneo unit/mL us route 3 subcutaneou times per s day on a sliding scale three times a day before meals amlodipine 2019- No take 1 [facility] 5 mg tablet 07-02 tablet (5 ea lth 00:00: 00:00 mg) by 00 :00 oral route once daily atorvastati 2019- No take 1 [facility] n 80 mg 07-02 tablet by ealth tablet 00:00: 00:00 Oral route 00 :00 1 time per day carvedilol 2019- No take 1 [facility] 25 mg 07-02 tablet (25 e[facility] tablet 00:00: 00:00 mg) by 00 :00 oral route 2 times per day with food clopidogrel take 1 [facility] 75 mg 07-02 tablet (75 e[facility] tablet 00:00: 00:00 mg) by 00 :00 oral route once daily isosorbide 2019- No take 1 [facility] mononitrate 07-02 tablet (60 e alth ER 60 mg 00:00: 00:00 mg) by tablet,exte 00 :00 oral route nded once daily release 24 in the hr morning lisinopril 2019- take 1 [facility] 40 mg 07-02 tablet (40 e[facility] tablet 00:00: 00:00 mg) by 00 :00 oral route once daily metolazone 2019- No take 1 [facility] 5 mg tablet 07-02 tablet (5 ea lth 00:00: 00:00 mg) by 00 :00 oral route once daily Humalog No inject [facility] KwikPen 07-02 5-10 Units ealth (U-100) 00:00: 00:00 by Insulin 100 00 :00 Subcutaneo unit/mL us route 3 subcutaneou times per s day on a sliding scale three times a day before meals amlodipine 2019- No take 1 [facility] 5 mg tablet 07-02 tablet (5 ea lth 00:00: 00:00 mg) by 00 :00 oral route once daily atorvastati 2019- No take 1 [facility] n 80 mg 07-02 tablet by ealth tablet 00:00: 00:00 Oral route 00 :00 1 time per day carvedilol 2019- No take 1 [facility] 25 mg 07-02 tablet (25 e[facility] tablet 00:00: 00:00 mg) by 00 :00 oral route 2 times per day with food clopidogrel take 1 [facility] 75 mg 07-02 tablet (75 ealth tablet 00:00: 00:00 mg) by 00 :00 oral route once daily isosorbide 2019- No take 1 [facility] mononitrate 07-02 tablet (60 e alth ER 60 mg 00:00: 00:00 mg) by tablet,exte 00 :00 oral route nded once daily release 24 in the hr morning lisinopril 2019- No take 1 [facility] 40 mg 07-02 tablet (40 e[facility] tablet 00:00: 00:00 mg) by 00 :00 oral route once daily metolazone 2019- No take 1 [facility] 5 mg tablet 07-02 tablet (5 ea lth 00:00: 00:00 mg) by 00 :00 oral route once daily Humalog 2019- No inject [facility] KwikPen 07-02 5-10 Units ealth (U-100) 00:00: 00:00 by Insulin 100 00 :00 Subcutaneo unit/mL us route 3 subcutaneou times per s day on a sliding scale three times a day before meals amlodipine 2019- No take 1 [facility] 5 mg tablet 07-02 tablet (5 ea lth 00:00: 00:00 mg) by 00 :00 oral route once daily atorvastati 2019- No take 1 [facility] n 80 mg 07-02 tablet by ealth tablet 00:00: 00:00 Oral route 00 :00 1 time per day carvedilol 2019-2019- No take 1 [facility] 25 mg 07-02 tablet (25 ealth tablet 00:00: 00:00 mg) by 00 :00 oral route 2 times per day with food clopidogrel 2019- No take 1 [facility] 75 mg 07-02 tablet (75 ealth tablet 00:00: 00:00 mg) by 00 :00 oral route once daily isosorbide 2019- No take 1 [facility] mononitrate 07-02 tablet (60 e alth ER 60 mg 00:00: 00:00 mg) by tablet,exte 00 :00 oral route nded once daily release 24 in the hr morning lisinopril 2019- No take 1 [facility] 40 mg 07-02 tablet (40 ealth tablet 00:00: 00:00 mg) by 00 :00 oral route once daily metolazone 2019- No take 1 [facility] 5 mg tablet 07-02 tablet (5 ea lth 00:00: 00:00 mg) by 00 :00 oral route once daily Humalog 2019- No inject [facility] KwikPen 07-02 5-10 Units ealth (U-100) 00:00: 00:00 by Insulin 100 00 :00 Subcutaneo unit/mL us route 3 subcutaneou times per s day on a sliding scale three times a day before meals amlodipine 2019- No take 1 [facility] 5 mg tablet 07-02 tablet (5 ea lth 00:00: 00:00 mg) by 00 :00 oral route once daily atorvastati 2019- No take 1 [facility] n 80 mg 07-02 tablet by ealth tablet 00:00: 00:00 Oral route 00 :00 1 time per day carvedilol 2019-2019- No take 1 [facility] 25 mg 07-02 tablet (25 ealth tablet 00:00: 00:00 mg) by 00 :00 oral route 2 times per day with food clopidogrel take 1 [facility] 75 mg 07-02 tablet (75 ealth tablet 00:00: 00:00 mg) by 00 :00 oral route once daily isosorbide No take 1 [facility] mononitrate 07-02 tablet (60 e alth ER 60 mg 00:00: 00:00 mg) by tablet,exte 00 :00 oral route nded once daily release 24 in the hr morning lisinopril take 1 [facility] 40 mg 07-02 tablet (40 ealth tablet 00:00: 00:00 mg) by 00 :00 oral route once daily metolazone take 1 [facility] 5 mg tablet 07-02 tablet (5 ea lth 00:00: 00:00 mg) by 00 :00 oral route once daily Humalog inject [facility] KwikPen 07-02 5-10 Units ealth (U-100) 00:00: 00:00 by Insulin 100 00 :00 Subcutaneo unit/mL us route 3 subcutaneou times per s day on a sliding scale three times a day before meals amlodipine take 1 [facility] 5 mg tablet 07-02 tablet (5 ea lth 00:00: 00:00 mg) by 00 :00 oral route once daily atorvastati take 1 [facility] n 80 mg 07-02 tablet by ealth tablet 00:00: 00:00 Oral route 00 :00 1 time per day carvedilol 2019- take 1 [facility] 25 mg 07-02 tablet (25 ealth tablet 00:00: 00:00 mg) by 00 :00 oral route 2 times per day with food clopidogrel take 1 [facility] 75 mg 07-02 tablet (75 ealth tablet 00:00: 00:00 mg) by 00 :00 oral route once daily isosorbide 2019- No take 1 [facility] mononitrate 07-02 tablet (60 e alth ER 60 mg 00:00: 00:00 mg) by tablet,exte 00 :00 oral route nded once daily release 24 in the hr morning lisinopril 2019- No take 1 [facility] 40 mg 07-02 tablet (40 ealth tablet 00:00: 00:00 mg) by 00 :00 oral route once daily metolazone 2019- No take 1 [facility] 5 mg tablet 07-02 tablet (5 ea lth 00:00: 00:00 mg) by 00 :00 oral route once daily Humalog 2019- No inject [facility] KwikPen 07-02 5-10 Units ealth (U-100) 00:00: 00:00 by Insulin 100 00 :00 Subcutaneo unit/mL us route 3 subcutaneou times per s day on a sliding scale three times a day before meals amlodipine 2019- No take 1 [facility] 5 mg tablet 07-02 tablet (5 ea lth 00:00: 00:00 mg) by 00 :00 oral route once daily atorvastati take 1 [facility] n 80 mg 07-02 tablet by ealth tablet 00:00: 00:00 Oral route 00 :00 1 time per day carvedilol 2019- No take 1 [facility] 25 mg 07-02 tablet (25 e[facility] tablet 00:00: 00:00 mg) by 00 :00 oral route 2 times per day with food clopidogrel 2019- take 1 [facility] 75 mg 07-02 tablet (75 ealth tablet 00:00: 00:00 mg) by 00 :00 oral route once daily isosorbide 2019- No take 1 [facility] mononitrate 07-02 tablet (60 e alth ER 60 mg 00:00: 00:00 mg) by tablet,exte 00 :00 oral route nded once daily release 24 in the hr morning lisinopril 2019- No take 1 [facility] 40 mg 07-02 tablet (40 ealth tablet 00:00: 00:00 mg) by 00 :00 oral route once daily metolazone 2019- No take 1 [facility] 5 mg tablet 07-02 tablet (5 ea lth 00:00: 00:00 mg) by 00 :00 oral route once daily Humalog 2019- No inject [facility] KwikPen 07-02 5-10 Units ealth (U-100) 00:00: 00:00 by Insulin 100 00 :00 Subcutaneo unit/mL us route 3 subcutaneou times per s day on a sliding scale three times a day before meals amlodipine take 1 [facility] 5 mg tablet 07-02 tablet (5 ea lth 00:00: 00:00 mg) by 00 :00 oral route once daily atorvastati take 1 [facility] n 80 mg 07-02 tablet by ealth tablet 00:00: 00:00 Oral route 00 :00 1 time per day carvedilol take 1 [facility] 25 mg 07-02 tablet (25 ealth tablet 00:00: 00:00 mg) by 00 :00 oral route 2 times per day with food clopidogrel take 1 [facility] 75 mg 07-02 tablet (75 ealth tablet 00:00: 00:00 mg) by 00 :00 oral route once daily isosorbide take 1 [facility] mononitrate 07-02 tablet (60 e alth ER 60 mg 00:00: 00:00 mg) by tablet,exte 00 :00 oral route nded once daily release 24 in the hr morning lisinopril 2019- take 1 [facility] 40 mg 07-02 tablet (40 ealth tablet 00:00: 00:00 mg) by 00 :00 oral route once daily metolazone 2019- take 1 [facility] 5 mg tablet 07-02 tablet (5 ea lth 00:00: 00:00 mg) by 00 :00 oral route once daily Humalog inject [facility] KwikPen 07-02 5-10 Units ealth (U-100) 00:00: 00:00 by Insulin 100 00 :00 Subcutaneo unit/mL us route 3 subcutaneou times per s day on a sliding scale three times a day before meals amlodipine 2019- No take 1 [facility] 5 mg tablet 07-02 tablet (5 ea lth 00:00: 00:00 mg) by 00 :00 oral route once daily atorvastati 2019- No take 1 [facility] n 80 mg 07-02 tablet by ealth tablet 00:00: 00:00 Oral route 00 :00 1 time per day carvedilol 2019- No take 1 [facility] 25 mg 07-02 tablet (25 ealth tablet 00:00: 00:00 mg) by 00 :00 oral route 2 times per day with food clopidogrel 2019- No take 1 [facility] 75 mg 07-02 tablet (75 ealth tablet 00:00: 00:00 mg) by 00 :00 oral route once daily isosorbide 2019- No take 1 [facility] mononitrate 07-02 tablet (60 e alth ER 60 mg 00:00: 00:00 mg) by tablet,exte 00 :00 oral route nded once daily release 24 in the hr morning lisinopril 2019- No take 1 [facility] 40 mg 07-02 tablet (40 ealth tablet 00:00: 00:00 mg) by 00 :00 oral route once daily metolazone 2019- No take 1 [facility] 5 mg tablet 07-02 tablet (5 ea lth 00:00: 00:00 mg) by 00 :00 oral route once daily Humalog 2019- No inject [facility] KwikPen 07-02 5-10 Units ealth (U-100) 00:00: 00:00 by Insulin 100 00 :00 Subcutaneo unit/mL us route 3 subcutaneou times per s day on a sliding scale three times a day before meals amlodipine 2019- No take 1 [facility] 5 mg tablet 07-02 tablet (5 ea lth 00:00: 00:00 mg) by 00 :00 oral route once daily atorvastati take 1 [facility] n 80 mg 07-02 tablet by ealth tablet 00:00: 00:00 Oral route 00 :00 1 time per day carvedilol take 1 [facility] 25 mg 07-02 tablet (25 ealth tablet 00:00: 00:00 mg) by 00 :00 oral route 2 times per day with food clopidogrel take 1 [facility] 75 mg 07-02 tablet (75 ealth tablet 00:00: 00:00 mg) by 00 :00 oral route once daily isosorbide take 1 [facility] mononitrate 07-02 tablet (60 e alth ER 60 mg 00:00: 00:00 mg) by tablet,exte 00 :00 oral route nded once daily release 24 in the hr morning lisinopril take 1 [facility] 40 mg 07-02 tablet (40 ealth tablet 00:00: 00:00 mg) by 00 :00 oral route once daily Humalog inject [facility] KwikPen 07-02 5-10 Units ealth (U-100) 00:00: 00:00 by Insulin 100 00 :00 Subcutaneo unit/mL us route 3 subcutaneou times per s day on a sliding scale three times a day before meals amlodipine take 1 [facility] 5 mg tablet 07-02 tablet (5 ea lth 00:00: 00:00 mg) by 00 :00 oral route once daily atorvastati take 1 [facility] n 80 mg 07-02 tablet by ealth tablet 00:00: 00:00 Oral route 00 :00 1 time per day metolazone take 1 [facility] 5 mg tablet 07-02 tablet (5 ea lth 00:00: 00:00 mg) by 00 :00 oral route once daily carvedilol take 1 [facility] 25 mg 07-02 tablet (25 ealth tablet 00:00: 00:00 mg) by 00 :00 oral route 2 times per day with food clopidogrel 2019- No take 1 [facility] 75 mg 07-02 tablet (75 ealth tablet 00:00: 00:00 mg) by 00 :00 oral route once daily isosorbide 2019- No take 1 [facility] mononitrate 07-02 tablet (60 e alth ER 60 mg 00:00: 00:00 mg) by tablet,exte 00 :00 oral route nded once daily release 24 in the hr morning lisinopril 2019- No take 1 [facility] 40 mg 07-02 tablet (40 ealth tablet 00:00: 00:00 mg) by 00 :00 oral route once daily metolazone 2019- No take 1 [facility] 5 mg tablet 07-02 tablet (5 ea lth 00:00: 00:00 mg) by 00 :00 oral route once daily metolazone 2019- No take 1 [facility] 5 mg tablet 07-02 tablet (5 ea lth 00:00: 00:00 mg) by 00 :00 oral route once daily lisinopril 2019- No take 1 [facility] 40 mg 07-02 tablet (40 ealth tablet 00:00: 00:00 mg) by 00 :00 oral route once daily isosorbide 2019- No take 1 [facility] mononitrate 07-02 tablet (60 e alth ER 60 mg 00:00: 00:00 mg) by tablet,exte 00 :00 oral route nded once daily release 24 in the hr morning clopidogrel 2019- No take 1 [facility] 75 mg 07-02 tablet (75 ealth tablet 00:00: 00:00 mg) by 00 :00 oral route once daily carvedilol 2019- take 1 [facility] 25 mg 07-02 tablet (25 ealth tablet 00:00: 00:00 mg) by 00 :00 oral route 2 times per day with food atorvastati 2019- take 1 [facility] n 80 mg 07-02 tablet by ealth tablet 00:00: 00:00 Oral route 00 :00 1 time per day amlodipine 2019- No take 1 [facility] 5 mg tablet 07-02 tablet (5 ea lth 00:00: 00:00 mg) by 00 :00 oral route once daily Humalog 2019- No inject [facility] KwikPen 07-02 5-10 Units ealth (U-100) 00:00: 00:00 by Insulin 100 00 :00 Subcutaneo unit/mL us route 3 subcutaneou times per s day on a sliding scale three times a day before meals Humalog 2019- No inject [facility] KwikPen 07-02 5-10 Units ealth (U-100) 00:00: 00:00 by Insulin 100 00 :00 Subcutaneo unit/mL us route 3 subcutaneou times per s day on a sliding scale three times a day before meals amlodipine 2019- No take 1 [facility] 5 mg tablet 07-02 tablet (5 ea lth 00:00: 00:00 mg) by 00 :00 oral route once daily atorvastati 2019- No take 1 [facility] n 80 mg 07-02 tablet by ealth tablet 00:00: 00:00 Oral route 00 :00 1 time per day carvedilol 2019- No take 1 [facility] 25 mg 07-02 tablet (25 ealth tablet 00:00: 00:00 mg) by 00 :00 oral route 2 times per day with food clopidogrel 2019- No take 1 [facility] 75 mg 07-02 tablet (75 ealth tablet 00:00: 00:00 mg) by 00 :00 oral route once daily isosorbide 2019- No take 1 [facility] mononitrate 07-02 tablet (60 e alth ER 60 mg 00:00: 00:00 mg) by tablet,exte 00 :00 oral route nded once daily release 24 in the hr morning lisinopril 2019- No take 1 [facility] 40 mg 07-02 tablet (40 ealth tablet 00:00: 00:00 mg) by 00 :00 oral route once daily metolazone 2019-2019- No take 1 [facility] 5 mg tablet 07-02 tablet (5 ea lth 00:00: 00:00 mg) by 00 :00 oral route once daily Humalog 2019- No inject [facility] KwikPen 07-02 5-10 Units ealth (U-100) 00:00: 00:00 by Insulin 100 00 :00 Subcutaneo unit/mL us route 3 subcutaneou times per s day on a sliding scale three times a day before meals amlodipine 2019- No take 1 [facility] 5 mg tablet 07-02 tablet (5 ea lth 00:00: 00:00 mg) by 00 :00 oral route once daily atorvastati 2019- No take 1 [facility] n 80 mg 07-02 tablet by ealth tablet 00:00: 00:00 Oral route 00 :00 1 time per day carvedilol 2019- No take 1 [facility] 25 mg 07-02 tablet (25 ealth tablet 00:00: 00:00 mg) by 00 :00 oral route 2 times per day with food clopidogrel 2019- No take 1 [facility] 75 mg 07-02 tablet (75 ealth tablet 00:00: 00:00 mg) by 00 :00 oral route once daily isosorbide 2019- No take 1 [facility] mononitrate 07-02 tablet (60 e alth ER 60 mg 00:00: 00:00 mg) by tablet,exte 00 :00 oral route nded once daily release 24 in the hr morning lisinopril 2019- No take 1 [facility] 40 mg 07-02 tablet (40 ealth tablet 00:00: 00:00 mg) by 00 :00 oral route once daily metolazone 2019- No take 1 [facility] 5 mg tablet 07-02 tablet (5 ea lth 00:00: 00:00 mg) by 00 :00 oral route once daily Humalog 2019-2019- No inject [facility] KwikPen 07-02 5-10 Units ealth (U-100) 00:00: 00:00 by Insulin 100 00 :00 Subcutaneo unit/mL us route 3 subcutaneou times per s day on a sliding scale three times a day before meals amlodipine 2019- No take 1 [facility] 5 mg tablet 07-02 tablet (5 ea lth 00:00: 00:00 mg) by 00 :00 oral route once daily atorvastati 2019- No take 1 [facility] n 80 mg 07-02 tablet by ealth tablet 00:00: 00:00 Oral route 00 :00 1 time per day carvedilol 2019- take 1 [facility] 25 mg 07-02 tablet (25 ealth tablet 00:00: 00:00 mg) by 00 :00 oral route 2 times per day with food clopidogrel take 1 [facility] 75 mg 07-02 tablet (75 ealth tablet 00:00: 00:00 mg) by 00 :00 oral route once daily isosorbide take 1 [facility] mononitrate 07-02 tablet (60 e alth ER 60 mg 00:00: 00:00 mg) by tablet,exte 00 :00 oral route nded once daily release 24 in the hr morning lisinopril take 1 [facility] 40 mg 07-02 tablet (40 ealth tablet 00:00: 00:00 mg) by 00 :00 oral route once daily metolazone take 1 [facility] 5 mg tablet 07-02 tablet (5 ea lth 00:00: 00:00 mg) by 00 :00 oral route once daily Humalog No inject [facility] KwikPen 07-02 5-10 Units ealth (U-100) 00:00: 00:00 by Insulin 100 00 :00 Subcutaneo unit/mL us route 3 subcutaneou times per s day on a sliding scale three times a day before meals amlodipine 2019- No take 1 [facility] 5 mg tablet 07-02 tablet (5 ea lth 00:00: 00:00 mg) by 00 :00 oral route once daily atorvastati 2019- No take 1 [facility] n 80 mg 07-02 tablet by ealth tablet 00:00: 00:00 Oral route 00 :00 1 time per day carvedilol 2019- No take 1 [facility] 25 mg 07-02 tablet (25 ealth tablet 00:00: 00:00 mg) by 00 :00 oral route 2 times per day with food clopidogrel No take 1 [facility] 75 mg 07-02 tablet (75 ealth tablet 00:00: 00:00 mg) by 00 :00 oral route once daily isosorbide No take 1 [facility] mononitrate 07-02 tablet (60 e alth ER 60 mg 00:00: 00:00 mg) by tablet,exte 00 :00 oral route nded once daily release 24 in the hr morning lisinopril No take 1 [facility] 40 mg 07-02 tablet (40 ealth tablet 00:00: 00:00 mg) by 00 :00 oral route once daily metolazone No take 1 [facility] 5 mg tablet 07-02 tablet (5 ea lth 00:00: 00:00 mg) by 00 :00 oral route once daily Humalog inject [facility] KwikPen 07-02 5-10 Units ealth (U-100) 00:00: 00:00 by Insulin 100 00 :00 Subcutaneo unit/mL us route 3 subcutaneou times per s day on a sliding scale three times a day before meals amlodipine 2019- No take 1 [facility] 5 mg tablet 07-02 tablet (5 ea lth 00:00: 00:00 mg) by 00 :00 oral route once daily atorvastati 2019- No take 1 [facility] n 80 mg 07-02 tablet by ealth tablet 00:00: 00:00 Oral route 00 :00 1 time per day carvedilol 2019-2019- No take 1 [facility] 25 mg 07-02 tablet (25 ealth tablet 00:00: 00:00 mg) by 00 :00 oral route 2 times per day with food clopidogrel take 1 [facility] 75 mg 07-02 tablet (75 ealth tablet 00:00: 00:00 mg) by 00 :00 oral route once daily isosorbide 2019- No take 1 [facility] mononitrate 07-02 tablet (60 e alth ER 60 mg 00:00: 00:00 mg) by tablet,exte 00 :00 oral route nded once daily release 24 in the hr morning lisinopril 2019- take 1 [facility] 40 mg 07-02 tablet (40 e[facility] tablet 00:00: 00:00 mg) by 00 :00 oral route once daily metolazone take 1 [facility] 5 mg tablet 07-02 tablet (5 ea lth 00:00: 00:00 mg) by 00 :00 oral route once daily Humalog inject [facility] KwikPen 07-02 5-10 Units ealth (U-100) 00:00: 00:00 by Insulin 100 00 :00 Subcutaneo unit/mL us route 3 subcutaneou times per s day on a sliding scale three times a day before meals amlodipine take 1 [facility] 5 mg tablet 07-02 tablet (5 ea lth 00:00: 00:00 mg) by 00 :00 oral route once daily atorvastati take 1 [facility] n 80 mg 07-02 tablet by ealth tablet 00:00: 00:00 Oral route 00 :00 1 time per day carvedilol 2019- No take 1 [facility] 25 mg 07-02 tablet (25 ealth tablet 00:00: 00:00 mg) by 00 :00 oral route 2 times per day with food clopidogrel take 1 [facility] 75 mg 07-02 tablet (75 ealth tablet 00:00: 00:00 mg) by 00 :00 oral route once daily isosorbide 2019- No take 1 [facility] mononitrate 07-02 tablet (60 e alth ER 60 mg 00:00: 00:00 mg) by tablet,exte 00 :00 oral route nded once daily release 24 in the hr morning lisinopril 2019- No take 1 [facility] 40 mg 07-02 tablet (40 ealth tablet 00:00: 00:00 mg) by 00 :00 oral route once daily metolazone 2019- No take 1 [facility] 5 mg tablet 07-02 tablet (5 ea lth 00:00: 00:00 mg) by 00 :00 oral route once daily bumetanide 2019- No take 1 [facility] 1 mg tablet 07-02 tablet (1 ea lth 00:00: 00:00 mg) by 00 :00 oral route 2 times per day bumetanide 2019- No take 1 [facility] 1 mg tablet 07-02 tablet (1 ea lth 00:00: 00:00 mg) by 00 :00 oral route 2 times per day bumetanide 2019- No take 1 [facility] 1 mg tablet 07-02 tablet (1 ea lth 00:00: 00:00 mg) by 00 :00 oral route 2 times per day bumetanide 2019- No take 1 [facility] 1 mg tablet 07-02 tablet (1 ea lth 00:00: 00:00 mg) by 00 :00 oral route 2 times per day bumetanide 2019- No take 1 [facility] 1 mg tablet 07-02 tablet (1 ea lth 00:00: 00:00 mg) by 00 :00 oral route 2 times per day bumetanide 2019- No take 1 [facility] 1 mg tablet 07-02 tablet (1 ea lth 00:00: 00:00 mg) by 00 :00 oral route 2 times per day bumetanide 2019- No take 1 [facility] 1 mg tablet 07-02 tablet (1 ea lth 00:00: 00:00 mg) by 00 :00 oral route 2 times per day bumetanide 2019- No take 1 [facility] 1 mg tablet 07-02 tablet (1 ea lth 00:00: 00:00 mg) by 00 :00 oral route 2 times per day bumetanide 2019- No take 1 [facility] 1 mg tablet 07-02 tablet (1 ea lth 00:00: 00:00 mg) by 00 :00 oral route 2 times per day bumetanide 2019- No take 1 [facility] 1 mg tablet 07-02 tablet (1 ea lth 00:00: 00:00 mg) by 00 :00 oral route 2 times per day bumetanide 2019- No take 1 [facility] 1 mg tablet 07-02 tablet (1 ea lth 00:00: 00:00 mg) by 00 :00 oral route 2 times per day bumetanide 2019- No take 1 [facility] 1 mg tablet 07-02 tablet (1 ea lth 00:00: 00:00 mg) by 00 :00 oral route 2 times per day bumetanide 2019- No take 1 [facility] 1 mg tablet 07-02 tablet (1 ea lth 00:00: 00:00 mg) by 00 :00 oral route 2 times per day bumetanide 2019- No take 1 [facility] 1 mg tablet 07-02 tablet (1 ea lth 00:00: 00:00 mg) by 00 :00 oral route 2 times per day bumetanide 2019- No take 1 [facility] 1 mg tablet 07-02 tablet (1 ea lth 00:00: 00:00 mg) by 00 :00 oral route 2 times per day bumetanide 2019- No take 1 [facility] 1 mg tablet 07-02- tablet (1 ea lth 00:00: 00:00 mg) by 00 :00 oral route 2 times per day bumetanide 2019- No take 1 [facility] 1 mg tablet 07-02 tablet (1 ea lth 00:00: 00:00 mg) by 00 :00 oral route 2 times per day bumetanide 2019- No take 1 [facility] 1 mg tablet 07-02 tablet (1 ea lth 00:00: 00:00 mg) by 00 :00 oral route 2 times per day bumetanide 2019-2019- No take 1 [facility] 1 mg tablet 07-02 tablet (1 ea lth 00:00: 00:00 mg) by 00 :00 oral route 2 times per day bumetanide 2019- No take 1 [facility] 1 mg tablet 07-02 tablet (1 ea lth 00:00: 00:00 mg) by 00 :00 oral route 2 times per day bumetanide 2019- No take 1 [facility] 1 mg tablet 07-02 tablet (1 ea lth 00:00: 00:00 mg) by 00 :00 oral route 2 times per day bumetanide 2019- No take 1 [facility] 1 mg tablet 07-02 tablet (1 ea lth 00:00: 00:00 mg) by 00 :00 oral route 2 times per day bumetanide 2019- No take 1 [facility] 1 mg tablet 07-02 tablet (1 ea lth 00:00: 00:00 mg) by 00 :00 oral route 2 times per day bumetanide 2019- No take 1 [facility] 1 mg tablet 07-02 tablet (1 ea lth 00:00: 00:00 mg) by 00 :00 oral route 2 times per day bumetanide 2019- No take 1 [facility] 1 mg tablet 07-02 tablet (1 ea lth 00:00: 00:00 mg) by 00 :00 oral route 2 times per day bumetanide 2019-2019- No take 1 [facility] 1 mg tablet 07-02- tablet (1 ea lth 00:00: 00:00 mg) by 00 :00 oral route 2 times per day bumetanide 2019-2019- No take 1 [facility] 1 mg tablet 07-02 tablet (1 ea lth 00:00: 00:00 mg) by 00 :00 oral route 2 times per day Levemir 2019- No inject 34 [facility] FlexTouch 4-06 04-07 Units by ealth U-100 00:00: 00:00 Subcutaneo Insulin 100 00 :00 us route 2 unit/mL (3 times per mL) day in the subcutaneou morning s pen and evening Levemir 2020- No inject 34 [facility] FlexTouch 4-06 04-07 Units by ealth U-100 00:00: 00:00 Subcutaneo Insulin 100 00 :00 us route 2 unit/mL (3 times per mL) day in the subcutaneou morning s pen and evening Levemir 2020- No inject 34 [facility] FlexTouch 4-06 04-07 Units by ealth U-100 00:00: 00:00 Subcutaneo Insulin 100 00 :00 us route 2 unit/mL (3 times per mL) day in the subcutaneou morning s pen and evening Levemir 2020- No inject 34 [facility] FlexTouch 4-06 04-07 Units by ealth U-100 00:00: 00:00 Subcutaneo Insulin 100 00 :00 us route 2 unit/mL (3 times per mL) day in the subcutaneou morning s pen and evening Levemir 2019- No inject 34 [facility] FlexTouch 4-06 04-07 Units by ealth U-100 00:00: 00:00 Subcutaneo Insulin 100 00 :00 us route 2 unit/mL (3 times per mL) day in the subcutaneou morning s pen and evening Levemir 2020- No inject 34 [facility] FlexTouch 4-06 04-07 Units by ealth U-100 00:00: 00:00 Subcutaneo Insulin 100 00 :00 us route 2 unit/mL (3 times per mL) day in the subcutaneou morning s pen and evening Levemir 2019- 2020- No inject 34 [facility] FlexTouch 4-06 04-07 Units by ealth U-100 00:00: 00:00 Subcutaneo Insulin 100 00 :00 us route 2 unit/mL (3 times per mL) day in the subcutaneou morning s pen and evening Levemir 2020-0 2020- No inject 34 [facility] FlexTouch 4-06 04-07 Units by ealth U-100 00:00: 00:00 Subcutaneo Insulin 100 00 :00 us route 2 unit/mL (3 times per mL) day in the subcutaneou morning s pen and evening Levemir 2020-0 2020- No inject 34 [facility] FlexTouch 4-06 04-07 Units by ealth U-100 00:00: 00:00 Subcutaneo Insulin 100 00 :00 us route 2 unit/mL (3 times per mL) day in the subcutaneou morning s pen and evening Levemir 2019- 2020- No inject 34 [facility] FlexTouch 4-06 04-07 Units by ealth U-100 00:00: 00:00 Subcutaneo Insulin 100 00 :00 us route 2 unit/mL (3 times per mL) day in the subcutaneou morning s pen and evening Levemir 2019- 2020- No inject 34 [facility] FlexTouch 4-06 04-07 Units by ealth U-100 00:00: 00:00 Subcutaneo Insulin 100 00 :00 us route 2 unit/mL (3 times per mL) day in the subcutaneou morning s pen and evening Levemir 2019- 2020- No inject 34 [facility] FlexTouch 4-06 04-07 Units by ealth U-100 00:00: 00:00 Subcutaneo Insulin 100 00 :00 us route 2 unit/mL (3 times per mL) day in the subcutaneou morning s pen and evening Levemir 2019-0 2020- No inject 34 [facility] FlexTouch 4-06 04-07 Units by ealth U-100 00:00: 00:00 Subcutaneo Insulin 100 00 :00 us route 2 unit/mL (3 times per mL) day in the subcutaneou morning s pen and evening Levemir 2020-0 2020- No inject 34 [facility] FlexTouch 4-06 04-07 Units by ealth U-100 00:00: 00:00 Subcutaneo Insulin 100 00 :00 us route 2 unit/mL (3 times per mL) day in the subcutaneou morning s pen and evening Levemir 2020-0 2020- No inject 34 [facility] FlexTouch 4-06 04-07 Units by ealth U-100 00:00: 00:00 Subcutaneo Insulin 100 00 :00 us route 2 unit/mL (3 times per mL) day in the subcutaneou morning s pen and evening Levemir 2020-0 2020- No inject 34 [facility] FlexTouch 4-06 04-07 Units by ealth U-100 00:00: 00:00 Subcutaneo Insulin 100 00 :00 us route 2 unit/mL (3 times per mL) day in the subcutaneou morning s pen and evening Levemir 2019- 2020- No inject 34 [facility] FlexTouch 4-06 04-07 Units by ealth U-100 00:00: 00:00 Subcutaneo Insulin 100 00 :00 us route 2 unit/mL (3 times per mL) day in the subcutaneou morning s pen and evening Levemir 2019- 2020- No inject 34 [facility] FlexTouch 4-06 04-07 Units by ealth U-100 00:00: 00:00 Subcutaneo Insulin 100 00 :00 us route 2 unit/mL (3 times per mL) day in the subcutaneou morning s pen and evening Levemir 2019- 2020- No inject 34 [facility] FlexTouch 4-06 04-07 Units by ealth U-100 00:00: 00:00 Subcutaneo Insulin 100 00 :00 us route 2 unit/mL (3 times per mL) day in the subcutaneou morning s pen and evening Levemir 2019-0 2020- No inject 34 [facility] FlexTouch 4-06 04-07 Units by ealth U-100 00:00: 00:00 Subcutaneo Insulin 100 00 :00 us route 2 unit/mL (3 times per mL) day in the subcutaneou morning s pen and evening Levemir 2019- 2020- No inject 34 [facility] FlexTouch 4-06 04-07 Units by ealth U-100 00:00: 00:00 Subcutaneo Insulin 100 00 :00 us route 2 unit/mL (3 times per mL) day in the subcutaneou morning s pen and evening Levemir 2020-0 2020- No inject 34 [facility] FlexTouch 4-06 04-07 Units by ealth U-100 00:00: 00:00 Subcutaneo Insulin 100 00 :00 us route 2 unit/mL (3 times per mL) day in the subcutaneou morning s pen and evening Levemir 2020- 2020- No inject 34 [facility] FlexTouch 4-06 04-07 Units by ealth U-100 00:00: 00:00 Subcutaneo Insulin 100 00 :00 us route 2 unit/mL (3 times per mL) day in the subcutaneou morning s pen and evening Levemir 2019- 2020- No inject 34 [facility] FlexTouch 4-06 04-07 Units by ealth U-100 00:00: 00:00 Subcutaneo Insulin 100 00 :00 us route 2 unit/mL (3 times per mL) day in the subcutaneou morning s pen and evening Levemir 2019- 2020- No inject 34 [facility] FlexTouch 4-06 04-07 Units by ealth U-100 00:00: 00:00 Subcutaneo Insulin 100 00 :00 us route 2 unit/mL (3 times per mL) day in the subcutaneou morning s pen and evening Levemir 2019-0 2020- No inject 34 [facility] FlexTouch 4-06 04-07 Units by ealth U-100 00:00: 00:00 Subcutaneo Insulin 100 00 :00 us route 2 unit/mL (3 times per mL) day in the subcutaneou morning s pen and evening Levemir 2019- 2020- No inject 34 [facility] FlexTouch 4-06 04-07 Units by ealth U-100 00:00: 00:00 Subcutaneo Insulin 100 00 :00 us route 2 unit/mL (3 times per mL) day in the subcutaneou morning s pen and evening bumetanide 2019-2019- No take 1 d/c lasix [facility] 1 mg tablet 05-09 tablet (1 ea [facility] 00:00: 00:00 mg) by 00 :00 oral route 2 times per day bumetanide 2019- No take 1 d/c lasix Access[facility] 1 mg tablet 05-09- tablet (1 ea lth 00:00: 00:00 mg) by 00 :00 oral route 2 times per day bumetanide 2019- No take 1 d/c lasix [facility] 1 mg tablet 05-09 tablet (1 ea lth 00:00: 00:00 mg) by 00 :00 oral route 2 times per day bumetanide 2019- No take 1 d/c lasix Access[facility] 1 mg tablet 05-09 tablet (1 ea lth 00:00: 00:00 mg) by 00 :00 oral route 2 times per day bumetanide 2019- No take 1 d/c lasix [facility] 1 mg tablet 05-09 tablet (1 ea lth 00:00: 00:00 mg) by 00 :00 oral route 2 times per day bumetanide 2019- No take 1 d/c lasix [facility] 1 mg tablet 05-09 tablet (1 ea lth 00:00: 00:00 mg) by 00 :00 oral route 2 times per day bumetanide 2019- No take 1 d/c lasix [facility] 1 mg tablet 05-09 tablet (1 ea lth 00:00: 00:00 mg) by 00 :00 oral route 2 times per day bumetanide 2019- No take 1 d/c lasix [facility] 1 mg tablet 05-09 tablet (1 ea lth 00:00: 00:00 mg) by 00 :00 oral route 2 times per day bumetanide 2019- No take 1 d/c lasix [facility] 1 mg tablet 05-09 tablet (1 ea lth 00:00: 00:00 mg) by 00 :00 oral route 2 times per day bumetanide 2019- No take 1 d/c lasix [facility] 1 mg tablet 05-09- tablet (1 ea lth 00:00: 00:00 mg) by 00 :00 oral route 2 times per day bumetanide 2019- No take 1 d/c lasix [facility] 1 mg tablet 05-09- tablet (1 ea lth 00:00: 00:00 mg) by 00 :00 oral route 2 times per day bumetanide 2019- No take 1 d/c lasix [facility] 1 mg tablet 05-09 tablet (1 ea lth 00:00: 00:00 mg) by 00 :00 oral route 2 times per day bumetanide 2019- No take 1 d/c lasix [facility] 1 mg tablet 05-09 tablet (1 ea lth 00:00: 00:00 mg) by 00 :00 oral route 2 times per day bumetanide 2019- No take 1 d/c lasix [facility] 1 mg tablet 05-09 tablet (1 ea lth 00:00: 00:00 mg) by 00 :00 oral route 2 times per day bumetanide 2019- No take 1 d/c lasix [facility] 1 mg tablet 05-09 tablet (1 ea lth 00:00: 00:00 mg) by 00 :00 oral route 2 times per day bumetanide 2019- No take 1 d/c lasix [facility] 1 mg tablet 05-09 tablet (1 ea lth 00:00: 00:00 mg) by 00 :00 oral route 2 times per day bumetanide 2019- No take 1 d/c lasix [facility] 1 mg tablet 05-09 tablet (1 ea lth 00:00: 00:00 mg) by 00 :00 oral route 2 times per day bumetanide 2019- No take 1 d/c lasix [facility] 1 mg tablet 05-09- tablet (1 ea lth 00:00: 00:00 mg) by 00 :00 oral route 2 times per day bumetanide 2019- No take 1 d/c lasix [facility] 1 mg tablet 05-09- tablet (1 ea lth 00:00: 00:00 mg) by 00 :00 oral route 2 times per day bumetanide 2019- No take 1 d/c lasix [facility] 1 mg tablet 05-09 tablet (1 ea lth 00:00: 00:00 mg) by 00 :00 oral route 2 times per day bumetanide 2019- No take 1 d/c lasix [facility] 1 mg tablet 05-09 tablet (1 ea lth 00:00: 00:00 mg) by 00 :00 oral route 2 times per day bumetanide 2019- No take 1 d/c lasix Access[facility] 1 mg tablet 05-09 tablet (1 ea lth 00:00: 00:00 mg) by 00 :00 oral route 2 times per day bumetanide 2019- No take 1 d/c lasix [facility] 1 mg tablet 05-09 tablet (1 ea lth 00:00: 00:00 mg) by 00 :00 oral route 2 times per day bumetanide 2019- No take 1 d/c lasix Access[facility] 1 mg tablet 05-09 tablet (1 ea lth 00:00: 00:00 mg) by 00 :00 oral route 2 times per day bumetanide 2019- No take 1 d/c lasix Access[facility] 1 mg tablet 05-09 tablet (1 ea lth 00:00: 00:00 mg) by 00 :00 oral route 2 times per day bumetanide 2019- No take 1 d/c lasix [facility] 1 mg tablet 05-09 tablet (1 ea lth 00:00: 00:00 mg) by 00 :00 oral route 2 times per day bumetanide 2019- No take 1 d/c lasix Access[facility] 1 mg tablet 05-09 tablet (1 ea lth 00:00: 00:00 mg) by 00 :00 oral route 2 times per day metolazone 2019- No take 1 [facility] 5 mg tablet 04-04 tablet (5 ea lth 00:00: 00:00 mg) by 00 :00 oral route once daily Levemir 2019- No inject 34 [facility] FlexTouch 04-04 Units by [facility] U-100 00:00: 00:00 Subcutaneo Insulin 100 00 :00 us route 2 unit/mL (3 times per mL[facility] Humalog 2019- No inject [facility] KwikPen 04-04 5-10 Units ealth (U-100) 00:00: 00:00 by Insulin 100 00 :00 Subcutaneo unit/mL us route 3 subcutaneou times per s day on a sliding scale three times a day before meals amlodipine 2019- No take 1 [facility] 5 mg tablet 04-04 tablet (5 ea lth 00:00: 00:00 mg) by 00 :00 oral route once daily atorvastati 2019- No take 1 [facility] n 80 mg 04-04 tablet by ealth tablet 00:00: 00:00 Oral route 00 :00 1 time per day carvedilol 2019- No take 1 [facility] 25 mg 04-04 tablet (25 ealth tablet 00:00: 00:00 mg) by 00 :00 oral route 2 times per day with food clopidogrel 2019- No take 1 [facility] 75 mg 04-04 tablet (75 ealth tablet 00:00: 00:00 mg) by 00 :00 oral route once daily isosorbide 2019- No take 1 [facility] mononitrate 04-04 tablet (60 e alth ER 60 mg 00:00: 00:00 mg) by tablet,exte 00 :00 oral route nded once daily release 24 in the hr morning lisinopril 2019- No take 1 [facility] 40 mg 04-04 tablet (40 ealth tablet 00:00: 00:00 mg) by 00 :00 oral route once daily metolazone 2019- No take 1 [facility] 5 mg tablet 04-04 tablet (5 ea lth 00:00: 00:00 mg) by 00 :00 oral route once daily Levemir 2019- No inject 34 [facility] FlexTouch 04-04 Units by ealth U-100 00:00: 00:00 Subcutaneo Insulin 100 00 :00 us route 2 unit/mL (3 times per mL) day in the subcutaneou morning s pen and evening Humalog 2019-2019- No inject [facility] KwikPen 04-04 5-10 Units ealth (U-100) 00:00: 00:00 by Insulin 100 00 :00 Subcutaneo unit/mL us route 3 subcutaneou times per s day on a sliding scale three times a day before meals amlodipine 2019- No take 1 [facility] 5 mg tablet 04-04 tablet (5 ea lth 00:00: 00:00 mg) by 00 :00 oral route once daily atorvastati No take 1 [facility] n 80 mg 04-04 tablet by ealth tablet 00:00: 00:00 Oral route 00 :00 1 time per day carvedilol 2019- No take 1 [facility] 25 mg 04-04 tablet (25 ealth tablet 00:00: 00:00 mg) by 00 :00 oral route 2 times per day with food clopidogrel No take 1 [facility] 75 mg 04-04 tablet (75 ealth tablet 00:00: 00:00 mg) by 00 :00 oral route once daily isosorbide No take 1 [facility] mononitrate 04-04 tablet (60 e alth ER 60 mg 00:00: 00:00 mg) by tablet,exte 00 :00 oral route nded once daily release 24 in the hr morning lisinopril 2019- No take 1 [facility] 40 mg 04-04 tablet (40 ealth tablet 00:00: 00:00 mg) by 00 :00 oral route once daily metolazone 2019- No take 1 [facility] 5 mg tablet 04-04 tablet (5 ea lth 00:00: 00:00 mg) by 00 :00 oral route once daily Levemir 2019- No inject 34 [facility] FlexTouch 04-04 Units by ealth U-100 00:00: 00:00 Subcutaneo Insulin 100 00 :00 us route 2 unit/mL (3 times per mL) day in the subcutaneou morning s pen and evening Humalog 2019- No inject [facility] KwikPen 04-04 5-10 Units ealth (U-100) 00:00: 00:00 by Insulin 100 00 :00 Subcutaneo unit/mL us route 3 subcutaneou times per s day on a sliding scale three times a day before meals amlodipine 2019- No take 1 [facility] 5 mg tablet 04-04 tablet (5 ea lth 00:00: 00:00 mg) by 00 :00 oral route once daily atorvastati No take 1 Acc [facility] n 80 mg 04-04 tablet by ealth tablet 00:00: 00:00 Oral route 00 :00 1 time per day carvedilol 2019- No take 1 [facility] 25 mg 04-04 tablet (25 ealth tablet 00:00: 00:00 mg) by 00 :00 oral route 2 times per day with food clopidogrel take 1 Acc [facility] 75 mg 04-04 tablet (75 ealth tablet 00:00: 00:00 mg) by 00 :00 oral route once daily isosorbide take 1 [facility] mononitrate 04-04 tablet (60 e alth ER 60 mg 00:00: 00:00 mg) by tablet,exte 00 :00 oral route nded once daily release 24 in the hr morning lisinopril take 1 [facility] 40 mg 04-04 tablet (40 ealth tablet 00:00: 00:00 mg) by 00 :00 oral route once daily metolazone take 1 [facility] 5 mg tablet 04-04 tablet (5 ea lth 00:00: 00:00 mg) by 00 :00 oral route once daily Levemir No inject 34 [facility] ss[facility] FlexTouch 04-04 Units by ealth U-100 00:00: 00:00 Subcutaneo Insulin 100 00 :00 us route 2 unit/mL (3 times per mL) day in the subcutaneou morning s pen and evening Humalog inject Access[facility] KwikPen 04-04 5-10 Units ealth (U-100) 00:00: 00:00 by Insulin 100 00 :00 Subcutaneo unit/mL us route 3 subcutaneou times per s day on a sliding scale three times a day before meals amlodipine 2019- No take 1 [facility] 5 mg tablet 04-04 tablet (5 ea lth 00:00: 00:00 mg) by 00 :00 oral route once daily atorvastati 2019- No take 1 Acc ess[facility] n 80 mg 04-04 tablet by ealth tablet 00:00: 00:00 Oral route 00 :00 1 time per day carvedilol 2019- No take 1 [facility] 25 mg 04-04 tablet (25 ealth tablet 00:00: 00:00 mg) by 00 :00 oral route 2 times per day with food clopidogrel take 1 Acc ess[facility] 75 mg 04-04 tablet (75 ealth tablet 00:00: 00:00 mg) by 00 :00 oral route once daily isosorbide No take 1 [facility] mononitrate 04-04 tablet (60 e alth ER 60 mg 00:00: 00:00 mg) by tablet,exte 00 :00 oral route nded once daily release 24 in the hr morning lisinopril 2019- No take 1 [facility] 40 mg 04-04 tablet (40 ealth tablet 00:00: 00:00 mg) by 00 :00 oral route once daily metolazone 2019- No take 1 [facility] 5 mg tablet 04-04 tablet (5 ea lth 00:00: 00:00 mg) by 00 :00 oral route once daily Levemir 2019- No inject 34 [facility] ss[facility] FlexTouch 04-04 Units by ealth U-100 00:00: 00:00 Subcutaneo Insulin 100 00 :00 us route 2 unit/mL (3 times per mL) day in the subcutaneou morning s pen and evening Humalog 2019- No inject Access[facility] KwikPen 04-04 5-10 Units ealth (U-100) 00:00: 00:00 by Insulin 100 00 :00 Subcutaneo unit/mL us route 3 subcutaneou times per s day on a sliding scale three times a day before meals amlodipine 2019- No take 1 [facility] 5 mg tablet 04-04 tablet (5 ea lth 00:00: 00:00 mg) by 00 :00 oral route once daily atorvastati 2019- No take 1 Acc ess[facility] n 80 mg 04-04 tablet by ealth tablet 00:00: 00:00 Oral route 00 :00 1 time per day carvedilol 2019- No take 1 [facility] 25 mg 04-04 tablet (25 ealth tablet 00:00: 00:00 mg) by 00 :00 oral route 2 times per day with food clopidogrel No take 1 Acc ess[facility] 75 mg 04-04 tablet (75 ealth tablet 00:00: 00:00 mg) by 00 :00 oral route once daily isosorbide 2019- No take 1 Acce ss[facility] mononitrate 04-04 tablet (60 e alth ER 60 mg 00:00: 00:00 mg) by tablet,exte 00 :00 oral route nded once daily release 24 in the hr morning lisinopril 2019- take 1 Acce ss[facility] 40 mg 04-04 tablet (40 ealth tablet 00:00: 00:00 mg) by 00 :00 oral route once daily metolazone 2019- No take 1 Ac[facility] 5 mg tablet 04-04 tablet (5 ea lth 00:00: 00:00 mg) by 00 :00 oral route once daily Levemir 2019- No inject 34 Acce ss[facility] FlexTouch 04-04 Units by ealth U-100 00:00: 00:00 Subcutaneo Insulin 100 00 :00 us route 2 unit/mL (3 times per mL) day in the subcutaneou morning s pen and evening Humalog 2019- No inject Access[facility] KwikPen 04-04 5-10 Units ealth (U-100) 00:00: 00:00 by Insulin 100 00 :00 Subcutaneo unit/mL us route 3 subcutaneou times per s day on a sliding scale three times a day before meals amlodipine 2019- No take 1 [facility] 5 mg tablet 04-04 tablet (5 ea lth 00:00: 00:00 mg) by 00 :00 oral route once daily atorvastati 2019- No take 1 Acc ess[facility] n 80 mg 04-04 tablet by ealth tablet 00:00: 00:00 Oral route 00 :00 1 time per day carvedilol 2019- No take 1 Acce [facility] 25 mg 04-04 tablet (25 ealth tablet 00:00: 00:00 mg) by 00 :00 oral route 2 times per day with food clopidogrel take 1 Acc ess[facility] 75 mg 04-04 tablet (75 ealth tablet 00:00: 00:00 mg) by 00 :00 oral route once daily isosorbide 2019- No take 1 Acce ss[facility] mononitrate 04-04 tablet (60 e alth ER 60 mg 00:00: 00:00 mg) by tablet,exte 00 :00 oral route nded once daily release 24 in the hr morning lisinopril 2019- No take 1 Acce ss[facility] 40 mg 04-04 tablet (40 ealth tablet 00:00: 00:00 mg) by 00 :00 oral route once daily metolazone 2019- No take 1 [facility] 5 mg tablet 04-04 tablet (5 ea lth 00:00: 00:00 mg) by 00 :00 oral route once daily Levemir 2019- No inject 34 Acce ss[facility] FlexTouch 04-04 Units by ealth U-100 00:00: 00:00 Subcutaneo Insulin 100 00 :00 us route 2 unit/mL (3 times per mL) day in the subcutaneou morning s pen and evening Humalog 2019- No inject Access[facility] KwikPen 04-04 5-10 Units ealth (U-100) 00:00: 00:00 by Insulin 100 00 :00 Subcutaneo unit/mL us route 3 subcutaneou times per s day on a sliding scale three times a day before meals amlodipine 2019- No take 1 Acce [facility] 5 mg tablet 04-04 tablet (5 ea lth 00:00: 00:00 mg) by 00 :00 oral route once daily atorvastati No take 1 Acc ess[facility] n 80 mg 04-04 tablet by ealth tablet 00:00: 00:00 Oral route 00 :00 1 time per day carvedilol take 1 Acce ss[facility] 25 mg 04-04 tablet (25 ealth tablet 00:00: 00:00 mg) by 00 :00 oral route 2 times per day with food clopidogrel take 1 Acc ess[facility] 75 mg 04-04 tablet (75 ealth tablet 00:00: 00:00 mg) by 00 :00 oral route once daily isosorbide take 1 Acce ss[facility] mononitrate 04-04 tablet (60 e alth ER 60 mg 00:00: 00:00 mg) by tablet,exte 00 :00 oral route nded once daily release 24 in the hr morning lisinopril 2019- take 1 Acce ss[facility] 40 mg 04-04 tablet (40 ealth tablet 00:00: 00:00 mg) by 00 :00 oral route once daily metolazone No take 1 [facility] 5 mg tablet 04-04 tablet (5 ea lth 00:00: 00:00 mg) by 00 :00 oral route once daily Levemir inject 34 Acce ss[facility] FlexTouch 04-04 Units by ealth U-100 00:00: 00:00 Subcutaneo Insulin 100 00 :00 us route 2 unit/mL (3 times per mL) day in the subcutaneou morning s pen and evening Humalog 2019- No inject Access[facility] KwikPen 04-04 5-10 Units ealth (U-100) 00:00: 00:00 by Insulin 100 00 :00 Subcutaneo unit/mL us route 3 subcutaneou times per s day on a sliding scale three times a day before meals amlodipine No take 1 [facility] 5 mg tablet 04-04 tablet (5 ea lth 00:00: 00:00 mg) by 00 :00 oral route once daily atorvastati take 1 [facility] n 80 mg 04-04 tablet by [facility]alth tablet 00:00: 00:00 Oral route 00 :00 1 time per day carvedilol take 1 [facility] 25 mg 04-04 tablet (25 ealth tablet 00:00: 00:00 mg) by 00 :00 oral route 2 times per day with food clopidogrel take 1 [facility] 75 mg 04-04 tablet (75 e[facility] tablet 00:00: 00:00 mg) by 00 :00 oral route once daily isosorbide take 1 [facility] mononitrate 04-04 tablet (60 e alth ER 60 mg 00:00: 00:00 mg) by tablet,exte 00 :00 oral route nded once daily release 24 in the hr morning lisinopril take 1 [facility] 40 mg 04-04 tablet (40 e[facility] tablet 00:00: 00:00 mg) by 00 :00 oral route once daily metolazone take 1 [facility] 5 mg tablet 04-04 tablet (5 ea lth 00:00: 00:00 mg) by 00 :00 oral route once daily Levemir inject 34 [facility] FlexTouch 04-04 Units by ealth U-100 00:00: 00:00 Subcutaneo Insulin 100 00 :00 us route 2 unit/mL (3 times per mL) day in the subcutaneou morning s pen and evening Humalog inject [facility] KwikPen 04-04 5-10 Units ealth (U-100) 00:00: 00:00 by Insulin 100 00 :00 Subcutaneo unit/mL us route 3 subcutaneou times per s day on a sliding scale three times a day before meals amlodipine take 1 [facility] 5 mg tablet 04-04 tablet (5 ea lth 00:00: 00:00 mg) by 00 :00 oral route once daily atorvastati take 1 [facility] n 80 mg 04-04 tablet by ealth tablet 00:00: 00:00 Oral route 00 :00 1 time per day carvedilol 2019- take 1 [facility] 25 mg 04-04 tablet (25 ealth tablet 00:00: 00:00 mg) by 00 :00 oral route 2 times per day with food clopidogrel take 1 [facility] 75 mg 04-04 tablet (75 ealth tablet 00:00: 00:00 mg) by 00 :00 oral route once daily isosorbide take 1 [facility] mononitrate 04-04 tablet (60 e alth ER 60 mg 00:00: 00:00 mg) by tablet,exte 00 :00 oral route nded once daily release 24 in the hr morning lisinopril take 1 [facility] 40 mg 04-04 tablet (40 e[facility] tablet 00:00: 00:00 mg) by 00 :00 oral route once daily metolazone take 1 [facility] 5 mg tablet 04-04 tablet (5 ea lth 00:00: 00:00 mg) by 00 :00 oral route once daily Levemir inject 34 [facility] FlexTouch 04-04 Units by ealth U-100 00:00: 00:00 Subcutaneo Insulin 100 00 :00 us route 2 unit/mL (3 times per mL) day in the subcutaneou morning s pen and evening Humalog inject [facility] KwikPen 04-04 5-10 Units ealth (U-100) 00:00: 00:00 by Insulin 100 00 :00 Subcutaneo unit/mL us route 3 subcutaneou times per s day on a sliding scale three times a day before meals amlodipine take 1 [facility] 5 mg tablet 04-04 tablet (5 ea lth 00:00: 00:00 mg) by 00 :00 oral route once daily atorvastati 2019- No take 1 [facility] n 80 mg 04-04 tablet by ealth tablet 00:00: 00:00 Oral route 00 :00 1 time per day carvedilol 2019- No take 1 [facility] 25 mg 04-04 tablet (25 ealth tablet 00:00: 00:00 mg) by 00 :00 oral route 2 times per day with food clopidogrel take 1 [facility] 75 mg 04-04 tablet (75 ealth tablet 00:00: 00:00 mg) by 00 :00 oral route once daily isosorbide take 1 [facility] mononitrate 04-04 tablet (60 e alth ER 60 mg 00:00: 00:00 mg) by tablet,exte 00 :00 oral route nded once daily release 24 in the hr morning lisinopril 2019- take 1 [facility] 40 mg 04-04 tablet (40 e[facility] tablet 00:00: 00:00 mg) by 00 :00 oral route once daily metolazone take 1 [facility] 5 mg tablet 04-04 tablet (5 ea lth 00:00: 00:00 mg) by 00 :00 oral route once daily Levemir inject 34 [facility] FlexTouch 04-04 Units by ealth U-100 00:00: 00:00 Subcutaneo Insulin 100 00 :00 us route 2 unit/mL (3 times per mL) day in the subcutaneou morning s pen and evening Humalog 2019- No inject [facility] KwikPen 04-04 5-10 Units ealth (U-100) 00:00: 00:00 by Insulin 100 00 :00 Subcutaneo unit/mL us route 3 subcutaneou times per s day on a sliding scale three times a day before meals amlodipine No take 1 [facility] 5 mg tablet 1-07 04-06 tablet (5 ea lth 00:00: 00:00 mg) by 00 :00 oral route once daily atorvastati 2019- No take 1 [facility] n 80 mg 04-04 tablet by ealth tablet 00:00: 00:00 Oral route 00 :00 1 time per day carvedilol 2019- No take 1 [facility] 25 mg 04-04 tablet (25 e[facility] tablet 00:00: 00:00 mg) by 00 :00 oral route 2 times per day with food clopidogrel take 1 [facility] 75 mg 04-04 tablet (75 ealth tablet 00:00: 00:00 mg) by 00 :00 oral route once daily isosorbide take 1 [facility] mononitrate 04-04 tablet (60 e alth ER 60 mg 00:00: 00:00 mg) by tablet,exte 00 :00 oral route nded once daily release 24 in the hr morning lisinopril take 1 [facility] 40 mg 04-04 tablet (40 ealth tablet 00:00: 00:00 mg) by 00 :00 oral route once daily metolazone take 1 [facility] 5 mg tablet 04-04 tablet (5 ea lth 00:00: 00:00 mg) by 00 :00 oral route once daily Levemir inject 34 [facility] FlexTouch 04-04 Units by ealth U-100 00:00: 00:00 Subcutaneo Insulin 100 00 :00 us route 2 unit/mL (3 times per mL) day in the subcutaneou morning s pen and evening Humalog No inject [facility] KwikPen 04-04 5-10 Units ealth (U-100) 00:00: 00:00 by Insulin 100 00 :00 Subcutaneo unit/mL us route 3 subcutaneou times per s day on a sliding scale three times a day before meals amlodipine No take 1 [facility] 5 mg tablet 04-04 tablet (5 ea lth 00:00: 00:00 mg) by 00 :00 oral route once daily atorvastati 2019- No take 1 [facility] n 80 mg 04-04 tablet by ealth tablet 00:00: 00:00 Oral route 00 :00 1 time per day carvedilol 2019- No take 1 [facility] 25 mg 04-04 tablet (25 e[facility] tablet 00:00: 00:00 mg) by 00 :00 oral route 2 times per day with food clopidogrel take 1 [facility] 75 mg 04-04 tablet (75 e[facility] tablet 00:00: 00:00 mg) by 00 :00 oral route once daily isosorbide No take 1 [facility] mononitrate 04-04 tablet (60 e alth ER 60 mg 00:00: 00:00 mg) by tablet,exte 00 :00 oral route nded once daily release 24 in the hr morning lisinopril 2019- No take 1 [facility] 40 mg 04-04 tablet (40 e[facility] tablet 00:00: 00:00 mg) by 00 :00 oral route once daily metolazone No take 1 [facility] 5 mg tablet 04-04 tablet (5 ea lth 00:00: 00:00 mg) by 00 :00 oral route once daily Levemir inject 34 [facility] FlexTouch 04-04 Units by ealth U-100 00:00: 00:00 Subcutaneo Insulin 100 00 :00 us route 2 unit/mL (3 times per mL) day in the subcutaneou morning s pen and evening Humalog 2019- No inject [facility] KwikPen 04-04 5-10 Units ealth (U-100) 00:00: 00:00 by Insulin 100 00 :00 Subcutaneo unit/mL us route 3 subcutaneou times per s day on a sliding scale three times a day before meals amlodipine 2019- No take 1 [facility] 5 mg tablet 04-04 tablet (5 ea lth 00:00: 00:00 mg) by 00 :00 oral route once daily atorvastati 2019- No take 1 [facility] n 80 mg 04-04 tablet by ealth tablet 00:00: 00:00 Oral route 00 :00 1 time per day carvedilol 2019- No take 1 [facility] 25 mg 04-04 tablet (25 e[facility] tablet 00:00: 00:00 mg) by 00 :00 oral route 2 times per day with food clopidogrel take 1 [facility] 75 mg 04-04 tablet (75 ealth tablet 00:00: 00:00 mg) by 00 :00 oral route once daily isosorbide take 1 [facility] mononitrate 04-04 tablet (60 e alth ER 60 mg 00:00: 00:00 mg) by tablet,exte 00 :00 oral route nded once daily release 24 in the hr morning lisinopril take 1 [facility] 40 mg 04-04 tablet (40 e[facility] tablet 00:00: 00:00 mg) by 00 :00 oral route once daily metolazone take 1 [facility] 5 mg tablet 04-04 tablet (5 ea lth 00:00: 00:00 mg) by 00 :00 oral route once daily Levemir inject 34 [facility] FlexTouch 04-04 Units by ealth U-100 00:00: 00:00 Subcutaneo Insulin 100 00 :00 us route 2 unit/mL (3 times per mL) day in the subcutaneou morning s pen and evening Humalog No inject [facility] KwikPen 04-0406 5-10 Units ealth (U-100) 00:00: 00:00 by Insulin 100 00 :00 Subcutaneo unit/mL us route 3 subcutaneou times per s day on a sliding scale three times a day before meals amlodipine take 1 [facility] 5 mg tablet 04-04 tablet (5 ea lth 00:00: 00:00 mg) by 00 :00 oral route once daily atorvastati take 1 [facility] n 80 mg 04-04 tablet by ealth tablet 00:00: 00:00 Oral route 00 :00 1 time per day carvedilol take 1 [facility] 25 mg 04-04 tablet (25 ealth tablet 00:00: 00:00 mg) by 00 :00 oral route 2 times per day with food clopidogrel take 1 [facility] 75 mg 04-04 tablet (75 e[facility] tablet 00:00: 00:00 mg) by 00 :00 oral route once daily isosorbide take 1 [facility] mononitrate 04-04 tablet (60 e alth ER 60 mg 00:00: 00:00 mg) by tablet,exte 00 :00 oral route nded once daily release 24 in the hr morning lisinopril take 1 [facility] 40 mg 04-04 tablet (40 ealth tablet 00:00: 00:00 mg) by 00 :00 oral route once daily metolazone take 1 [facility] 5 mg tablet 04-04 tablet (5 ea lth 00:00: 00:00 mg) by 00 :00 oral route once daily Levemir inject 34 [facility] FlexTouch 04-04 Units by ealth U-100 00:00: 00:00 Subcutaneo Insulin 100 00 :00 us route 2 unit/mL (3 times per mL) day in the subcutaneou morning s pen and evening Humalog inject [facility] KwikPen 04-04 5-10 Units ealth (U-100) 00:00: 00:00 by Insulin 100 00 :00 Subcutaneo unit/mL us route 3 subcutaneou times per s day on a sliding scale three times a day before meals amlodipine take 1 [facility] 5 mg tablet 04-04 tablet (5 ea lth 00:00: 00:00 mg) by 00 :00 oral route once daily atorvastati take 1 [facility] n 80 mg 04-04 tablet by ealth tablet 00:00: 00:00 Oral route 00 :00 1 time per day carvedilol 2019- take 1 [facility] 25 mg 04-04 tablet (25 ealth tablet 00:00: 00:00 mg) by 00 :00 oral route 2 times per day with food clopidogrel take 1 [facility] 75 mg 04-04 tablet (75 ealth tablet 00:00: 00:00 mg) by 00 :00 oral route once daily isosorbide take 1 [facility] mononitrate 04-04 tablet (60 e alth ER 60 mg 00:00: 00:00 mg) by tablet,exte 00 :00 oral route nded once daily release 24 in the hr morning lisinopril 2019- take 1 [facility] 40 mg 04-04 tablet (40 ealth tablet 00:00: 00:00 mg) by 00 :00 oral route once daily Humalog inject [facility] KwikPen 04-04 5-10 Units ealth (U-100) 00:00: 00:00 by Insulin 100 00 :00 Subcutaneo unit/mL us route 3 subcutaneou times per s day on a sliding scale three times a day before meals Levemir inject 34 [facility] FlexTouch 04-04 Units by ealth U-100 00:00: 00:00 Subcutaneo Insulin 100 00 :00 us route 2 unit/mL (3 times per mL) day in the subcutaneou morning s pen and evening metolazone 2019- take 1 [facility] 5 mg tablet 04-04 tablet (5 ea lth 00:00: 00:00 mg) by 00 :00 oral route once daily lisinopril 2019- take 1 [facility] 40 mg 04-04 tablet (40 ealth tablet 00:00: 00:00 mg) by 00 :00 oral route once daily isosorbide 2019- No take 1 [facility] mononitrate 04-04 tablet (60 e alth ER 60 mg 00:00: 00:00 mg) by tablet,exte 00 :00 oral route nded once daily release 24 in the hr morning clopidogrel 2019-2019- No take 1 [facility] 75 mg 04-04 tablet (75 e[facility] tablet 00:00: 00:00 mg) by 00 :00 oral route once daily carvedilol 2019- No take 1 [facility] 25 mg 04-04 tablet (25 ealth tablet 00:00: 00:00 mg) by 00 :00 oral route 2 times per day with food atorvastati 2019- take 1 [facility] n 80 mg 04-04 tablet by ealth tablet 00:00: 00:00 Oral route 00 :00 1 time per day amlodipine 2019- No take 1 [facility] 5 mg tablet 04-04 tablet (5 ea lth 00:00: 00:00 mg) by 00 :00 oral route once daily metolazone take 1 [facility] 5 mg tablet 04-04 tablet (5 ea lth 00:00: 00:00 mg) by 00 :00 oral route once daily Levemir No inject 34 [facility] FlexTouch 04-04 Units by ealth U-100 00:00: 00:00 Subcutaneo Insulin 100 00 :00 us route 2 unit/mL (3 times per mL) day in the subcutaneou morning s pen and evening Humalog No inject [facility] KwikPen 04-04 5-10 Units ealth (U-100) 00:00: 00:00 by Insulin 100 00 :00 Subcutaneo unit/mL us route 3 subcutaneou times per s day on a sliding scale three times a day before meals amlodipine 2019- No take 1 [facility] 5 mg tablet 04-04 tablet (5 ea lth 00:00: 00:00 mg) by 00 :00 oral route once daily atorvastati 2019-2019- No take 1 [facility] n 80 mg 04-04 tablet by ealth tablet 00:00: 00:00 Oral route 00 :00 1 time per day carvedilol 2019- No take 1 [facility] 25 mg 04-04 tablet (25 ealth tablet 00:00: 00:00 mg) by 00 :00 oral route 2 times per day with food clopidogrel take 1 [facility] 75 mg 04-04 tablet (75 ealth tablet 00:00: 00:00 mg) by 00 :00 oral route once daily isosorbide take 1 [facility] mononitrate 04-04 tablet (60 e alth ER 60 mg 00:00: 00:00 mg) by tablet,exte 00 :00 oral route nded once daily release 24 in the hr morning lisinopril take 1 [facility] 40 mg 04-04 tablet (40 e[facility] tablet 00:00: 00:00 mg) by 00 :00 oral route once daily metolazone take 1 [facility] 5 mg tablet 04-04 tablet (5 ea lth 00:00: 00:00 mg) by 00 :00 oral route once daily Levemir inject 34 [facility] FlexTouch 04-04 Units by ealth U-100 00:00: 00:00 Subcutaneo Insulin 100 00 :00 us route 2 unit/mL (3 times per mL) day in the subcutaneou morning s pen and evening Humalog inject [facility] KwikPen 04-04 5-10 Units ealth (U-100) 00:00: 00:00 by Insulin 100 00 :00 Subcutaneo unit/mL us route 3 subcutaneou times per s day on a sliding scale three times a day before meals amlodipine take 1 [facility] 5 mg tablet 04-04 tablet (5 ea lth 00:00: 00:00 mg) by 00 :00 oral route once daily atorvastati No take 1 [facility] n 80 mg 04-04 tablet by ealth tablet 00:00: 00:00 Oral route 00 :00 1 time per day carvedilol 2019- No take 1 [facility] 25 mg 04-04 tablet (25 ealth tablet 00:00: 00:00 mg) by 00 :00 oral route 2 times per day with food clopidogrel 2019- No take 1 [facility] 75 mg 04-04 tablet (75 ealth tablet 00:00: 00:00 mg) by 00 :00 oral route once daily isosorbide 2019- No take 1 [facility] mononitrate 04-04 tablet (60 e alth ER 60 mg 00:00: 00:00 mg) by tablet,exte 00 :00 oral route nded once daily release 24 in the hr morning lisinopril 2019- take 1 [facility] 40 mg 04-04 tablet (40 ealth tablet 00:00: 00:00 mg) by 00 :00 oral route once daily metolazone 2019- No take 1 [facility] 5 mg tablet 04-04 tablet (5 ea lth 00:00: 00:00 mg) by 00 :00 oral route once daily Levemir No inject 34 [facility] FlexTouch 04-04 Units by ealth U-100 00:00: 00:00 Subcutaneo Insulin 100 00 :00 us route 2 unit/mL (3 times per mL) day in the subcutaneou morning s pen and evening Humalog No inject [facility] KwikPen 04-04 5-10 Units ealth (U-100) 00:00: 00:00 by Insulin 100 00 :00 Subcutaneo unit/mL us route 3 subcutaneou times per s day on a sliding scale three times a day before meals amlodipine 2019- No take 1 [facility] 5 mg tablet 04-04 tablet (5 ea lth 00:00: 00:00 mg) by 00 :00 oral route once daily atorvastati No take 1 [facility] n 80 mg 04-04 tablet by ealth tablet 00:00: 00:00 Oral route 00 :00 1 time per day carvedilol take 1 [facility] 25 mg 04-04 tablet (25 ealth tablet 00:00: 00:00 mg) by 00 :00 oral route 2 times per day with food clopidogrel take 1 [facility] 75 mg 04-04 tablet (75 ealth tablet 00:00: 00:00 mg) by 00 :00 oral route once daily isosorbide take 1 [facility] mononitrate 04-04 tablet (60 e alth ER 60 mg 00:00: 00:00 mg) by tablet,exte 00 :00 oral route nded once daily release 24 in the hr morning lisinopril take 1 [facility] 40 mg 04-04 tablet (40 ealth tablet 00:00: 00:00 mg) by 00 :00 oral route once daily metolazone take 1 [facility] 5 mg tablet 04-04 tablet (5 ea lth 00:00: 00:00 mg) by 00 :00 oral route once daily Levemir inject 34 [facility] FlexTouch 04-04 Units by ealth U-100 00:00: 00:00 Subcutaneo Insulin 100 00 :00 us route 2 unit/mL (3 times per mL) day in the subcutaneou morning s pen and evening Humalog inject [facility] KwikPen 04-04 5-10 Units ealth (U-100) 00:00: 00:00 by Insulin 100 00 :00 Subcutaneo unit/mL us route 3 subcutaneou times per s day on a sliding scale three times a day before meals amlodipine take 1 [facility] 5 mg tablet 04-04 tablet (5 ea lth 00:00: 00:00 mg) by 00 :00 oral route once daily atorvastati take 1 [facility] n 80 mg 04-04 tablet by ealth tablet 00:00: 00:00 Oral route 00 :00 1 time per day carvedilol take 1 [facility] 25 mg 1-07 04-06 tablet (25 ealth tablet 00:00: 00:00 mg) by 00 :00 oral route 2 times per day with food clopidogrel take 1 [facility] 75 mg 04-04 tablet (75 ealth tablet 00:00: 00:00 mg) by 00 :00 oral route once daily isosorbide take 1 [facility] mononitrate 04-04 tablet (60 e alth ER 60 mg 00:00: 00:00 mg) by tablet,exte 00 :00 oral route nded once daily release 24 in the hr morning lisinopril 2019- take 1 [facility] 40 mg 04-04 tablet (40 ealth tablet 00:00: 00:00 mg) by 00 :00 oral route once daily metolazone take 1 [facility] 5 mg tablet 04-04 tablet (5 ea lth 00:00: 00:00 mg) by 00 :00 oral route once daily Levemir inject 34 [facility] FlexTouch 04-04 Units by ealth U-100 00:00: 00:00 Subcutaneo Insulin 100 00 :00 us route 2 unit/mL (3 times per mL) day in the subcutaneou morning s pen and evening Humalog inject [facility] KwikPen 04-04 5-10 Units ealth (U-100) 00:00: 00:00 by Insulin 100 00 :00 Subcutaneo unit/mL us route 3 subcutaneou times per s day on a sliding scale three times a day before meals amlodipine 2019- take 1 [facility] 5 mg tablet 04-04 tablet (5 ea lth 00:00: 00:00 mg) by 00 :00 oral route once daily lisinopril take 1 [facility] 40 mg 04-04 tablet (40 ealth tablet 00:00: 00:00 mg) by 00 :00 oral route once daily isosorbide take 1 [facility] mononitrate 04-04 tablet (60 e alth ER 60 mg 00:00: 00:00 mg) by tablet,exte 00 :00 oral route nded once daily release 24 in the hr morning clopidogrel 2019-2019- No take 1 [facility] 75 mg 04-04 tablet (75 ealth tablet 00:00: 00:00 mg) by 00 :00 oral route once daily carvedilol 2019- No take 1 [facility] 25 mg 04-04 tablet (25 ealth tablet 00:00: 00:00 mg) by 00 :00 oral route 2 times per day with food atorvastati 2019- take 1 [facility] n 80 mg 04-04 tablet by ealth tablet 00:00: 00:00 Oral route 00 :00 1 time per day metolazone 2019- No take 1 [facility] 5 mg tablet 04-04 tablet (5 ea lth 00:00: 00:00 mg) by 00 :00 oral route once daily Levemir inject 34 [facility] FlexTouch 04-04 Units by ealth U-100 00:00: 00:00 Subcutaneo Insulin 100 00 :00 us route 2 unit/mL (3 times per mL) day in the subcutaneou morning s pen and evening Humalog No inject [facility] KwikPen 04-04 5-10 Units ealth (U-100) 00:00: 00:00 by Insulin 100 00 :00 Subcutaneo unit/mL us route 3 subcutaneou times per s day on a sliding scale three times a day before meals amlodipine 2019- No take 1 [facility] 5 mg tablet 04-04 tablet (5 ea lth 00:00: 00:00 mg) by 00 :00 oral route once daily atorvastati 2019-2019- No take 1 [facility] n 80 mg 04-04 tablet by ealth tablet 00:00: 00:00 Oral route 00 :00 1 time per day carvedilol 2019-2019- No take 1 [facility] 25 mg 04-04 tablet (25 ealth tablet 00:00: 00:00 mg) by 00 :00 oral route 2 times per day with food clopidogrel take 1 [facility] 75 mg 04-04 tablet (75 ealth tablet 00:00: 00:00 mg) by 00 :00 oral route once daily isosorbide No take 1 [facility] mononitrate 04-04 tablet (60 e alth ER 60 mg 00:00: 00:00 mg) by tablet,exte 00 :00 oral route nded once daily release 24 in the hr morning lisinopril take 1 [facility] 40 mg 04-04 tablet (40 ealth tablet 00:00: 00:00 mg) by 00 :00 oral route once daily metolazone take 1 [facility] 5 mg tablet 04-04 tablet (5 ea lth 00:00: 00:00 mg) by 00 :00 oral route once daily Levemir inject 34 [facility] FlexTouch 04-04 Units by ealth U-100 00:00: 00:00 Subcutaneo Insulin 100 00 :00 us route 2 unit/mL (3 times per mL) day in the subcutaneou morning s pen and evening Humalog inject [facility] KwikPen 04-04 5-10 Units ealth (U-100) 00:00: 00:00 by Insulin 100 00 :00 Subcutaneo unit/mL us route 3 subcutaneou times per s day on a sliding scale three times a day before meals amlodipine take 1 [facility] 5 mg tablet 04-04 tablet (5 ea lth 00:00: 00:00 mg) by 00 :00 oral route once daily atorvastati take 1 [facility] n 80 mg 04-04 tablet by ealth tablet 00:00: 00:00 Oral route 00 :00 1 time per day carvedilol take 1 [facility] 25 mg 04-04 tablet (25 ealth tablet 00:00: 00:00 mg) by 00 :00 oral route 2 times per day with food clopidogrel 2019- No take 1 [facility] 75 mg 04-04 tablet (75 ealth tablet 00:00: 00:00 mg) by 00 :00 oral route once daily isosorbide take 1 [facility] mononitrate 04-04 tablet (60 e alth ER 60 mg 00:00: 00:00 mg) by tablet,exte 00 :00 oral route nded once daily release 24 in the hr morning lisinopril 2019- take 1 [facility] 40 mg 04-04 tablet (40 ealth tablet 00:00: 00:00 mg) by 00 :00 oral route once daily metolazone take 1 [facility] 5 mg tablet 04-04 tablet (5 ea lth 00:00: 00:00 mg) by 00 :00 oral route once daily Levemir inject 34 [facility] FlexTouch 04-04 Units by ealth U-100 00:00: 00:00 Subcutaneo Insulin 100 00 :00 us route 2 unit/mL (3 times per mL) day in the subcutaneou morning s pen and evening Humalog inject [facility] KwikPen 04-04 5-10 Units ealth (U-100) 00:00: 00:00 by Insulin 100 00 :00 Subcutaneo unit/mL us route 3 subcutaneou times per s day on a sliding scale three times a day before meals amlodipine take 1 [facility] 5 mg tablet 04-04 tablet (5 ea lth 00:00: 00:00 mg) by 00 :00 oral route once daily atorvastati take 1 [facility] n 80 mg 04-04 tablet by ealth tablet 00:00: 00:00 Oral route 00 :00 1 time per day carvedilol take 1 [facility] 25 mg 04-04 tablet (25 ealth tablet 00:00: 00:00 mg) by 00 :00 oral route 2 times per day with food clopidogrel take 1 [facility] 75 mg 04-04 tablet (75 ealth tablet 00:00: 00:00 mg) by 00 :00 oral route once daily isosorbide take 1 [facility] mononitrate 04-04 tablet (60 e alth ER 60 mg 00:00: 00:00 mg) by tablet,exte 00 :00 oral route nded once daily release 24 in the hr morning lisinopril take 1 [facility] 40 mg 04-04 tablet (40 ealth tablet 00:00: 00:00 mg) by 00 :00 oral route once daily metolazone take 1 [facility] 5 mg tablet 04-04 tablet (5 ea lth 00:00: 00:00 mg) by 00 :00 oral route once daily Levemir inject 34 [facility] FlexTouch 04-04 Units by ealth U-100 00:00: 00:00 Subcutaneo Insulin 100 00 :00 us route 2 unit/mL (3 times per mL) day in the subcutaneou morning s pen and evening Humalog inject [facility] KwikPen 04-04 5-10 Units ealth (U-100) 00:00: 00:00 by Insulin 100 00 :00 Subcutaneo unit/mL us route 3 subcutaneou times per s day on a sliding scale three times a day before meals amlodipine take 1 [facility] 5 mg tablet 04-04 tablet (5 ea lth 00:00: 00:00 mg) by 00 :00 oral route once daily atorvastati No take 1 [facility] n 80 mg 04-04 tablet by ealth tablet 00:00: 00:00 Oral route 00 :00 1 time per day carvedilol take 1 [facility] 25 mg 04-04 tablet (25 ealth tablet 00:00: 00:00 mg) by 00 :00 oral route 2 times per day with food clopidogrel take 1 [facility] 75 mg 04-04 tablet (75 ealth tablet 00:00: 00:00 mg) by 00 :00 oral route once daily isosorbide take 1 [facility] mononitrate 04-04 tablet (60 e alth ER 60 mg 00:00: 00:00 mg) by tablet,exte 00 :00 oral route nded once daily release 24 in the hr morning lisinopril take 1 [facility] 40 mg 04-04 tablet (40 ealth tablet 00:00: 00:00 mg) by 00 :00 oral route once daily metolazone take 1 [facility] 5 mg tablet 04-04 tablet (5 ea lth 00:00: 00:00 mg) by 00 :00 oral route once daily Levemir inject 34 [facility] FlexTouch 04-04 Units by ealth U-100 00:00: 00:00 Subcutaneo Insulin 100 00 :00 us route 2 unit/mL (3 times per mL) day in the subcutaneou morning s pen and evening Humalog inject [facility] KwikPen 04-04 5-10 Units ealth (U-100) 00:00: 00:00 by Insulin 100 00 :00 Subcutaneo unit/mL us route 3 subcutaneou times per s day on a sliding scale three times a day before meals amlodipine take 1 [facility] 5 mg tablet 04-04 tablet (5 ea lth 00:00: 00:00 mg) by 00 :00 oral route once daily atorvastati take 1 [facility] n 80 mg 04-04 tablet by ealth tablet 00:00: 00:00 Oral route 00 :00 1 time per day carvedilol take 1 [facility] 25 mg 04-04 tablet (25 ealth tablet 00:00: 00:00 mg) by 00 :00 oral route 2 times per day with food clopidogrel take 1 [facility] 75 mg 04-04 tablet (75 ealth tablet 00:00: 00:00 mg) by 00 :00 oral route once daily isosorbide take 1 [facility] mononitrate 04-04 tablet (60 e alth ER 60 mg 00:00: 00:00 mg) by tablet,exte 00 :00 oral route nded once daily release 24 in the hr morning lisinopril take 1 [facility] 40 mg 04-04 tablet (40 ealth tablet 00:00: 00:00 mg) by 00 :00 oral route once daily metolazone take 1 [facility] 5 mg tablet 04-04 tablet (5 ea lth 00:00: 00:00 mg) by 00 :00 oral route once daily Levemir inject 34 [facility] FlexTouch 04-04 Units by ealth U-100 00:00: 00:00 Subcutaneo Insulin 100 00 :00 us route 2 unit/mL (3 times per mL) day in the subcutaneou morning s pen and evening Humalog inject [facility] KwikPen 04-04 5-10 Units ealth (U-100) 00:00: 00:00 by Insulin 100 00 :00 Subcutaneo unit/mL us route 3 subcutaneou times per s day on a sliding scale three times a day before meals amlodipine take 1 [facility] 5 mg tablet 04-04 tablet (5 ea lth 00:00: 00:00 mg) by 00 :00 oral route once daily atorvastati take 1 [facility] n 80 mg 04-04 tablet by [facility] tablet 00:00: 00:00 Oral route 00 :00 1 time per day carvedilol take 1 [facility] 25 mg 04-04 tablet (25 [facility] tablet 00:00: 00:00 mg) by 00 :00 oral route 2 times per day with food clopidogrel take 1 [facility] 75 mg 04-04 tablet (75 [facility] tablet 00:00: 00:00 mg) by 00 :00 oral route once daily isosorbide 2019- 2020- No take 1 [facility] mononitrate 04-04 tablet (60 e alth ER 60 mg 00:00: 00:00 mg) by tablet,exte 00 :00 oral route nded once daily release 24 in the hr morning lisinopril 2019- No take 1 [facility] 40 mg 04-04 tablet (40 [facility] tablet 00:00: 00:00 mg) by 00 :00 oral route once daily furosemide 2019- No 1{table Q12H take 1 [facility] 40 mg 04-04 t} tablet by [facility] tablet 00:00: 00:00 oral route 00 :00 2 times every day furosemide 2019-0 2020- No 1{table Q12H take 1 [facility] 40 mg 04-04 t} tablet by [facility] tablet 00:00: 00:00 oral route 00 :00 2 times every day furosemide 2019-0 2020- No 1{table Q12H take 1 [facility] 40 mg 04-04 t} tablet by [facility] tablet 00:00: 00:00 oral route 00 :00 2 times every day furosemide 2019-0 2020- No 1{table Q12H take 1 [facility] 40 mg 04-04 t} tablet by [facility] tablet 00:00: 00:00 oral route 00 :00 2 times every day furosemide 2019-0 2020- No 1{table Q12H take 1 [facility] 40 mg 04-04 t} tablet by [facility] tablet 00:00: 00:00 oral route 00 :00 2 times every day furosemide 2019-0 2020- No 1{table Q12H take 1 [facility] 40 mg 04-04 t} tablet by [facility] tablet 00:00: 00:00 oral route 00 :00 2 times every day furosemide 2019-0 2020- No 1{table Q12H take 1 [facility] 40 mg 04-04 t} tablet by [facility] tablet 00:00: 00:00 oral route 00 :00 2 times every day furosemide 2019-0 2020- No 1{table Q12H take 1 [facility] 40 mg -09 27-11 t} tablet by [facility] tablet 00:00: 00:00 oral route 00 :00 2 times every day furosemide 2020-0 2020- No 1{table Q12H take 1 [facility] 40 mg 1-09 27-11 t} tablet by [facility] tablet 00:00: 00:00 oral route 00 :00 2 times every day furosemide 2020-0 2020- No 1{table Q12H take 1 [facility] 40 mg -09 27- t} tablet by [facility] tablet 00:00: 00:00 oral route 00 :00 2 times every day furosemide 2020-0 2020- No 1{table Q12H take 1 [facility] 40 mg -09 27- t} tablet by [facility] tablet 00:00: 00:00 oral route 00 :00 2 times every day furosemide 2020-0 2020- No 1{table Q12H take 1 [facility] 40 mg 04-04- t} tablet by [facility] tablet 00:00: 00:00 oral route 00 :00 2 times every day furosemide 2020-0 2020- No 1{table Q12H take 1 [facility] 40 mg -09 27- t} tablet by [facility] tablet 00:00: 00:00 oral route 00 :00 2 times every day furosemide 2020-0 2020- No 1{table Q12H take 1 [facility] 40 mg -09 27- t} tablet by [facility] tablet 00:00: 00:00 oral route 00 :00 2 times every day furosemide 2020-0 2020- No 1{table Q12H take 1 [facility] 40 mg -09 27-11 t} tablet by [facility] tablet 00:00: 00:00 oral route 00 :00 2 times every day furosemide 2020-0 2020- No 1{table Q12H take 1 [facility] 40 mg 1-09 27-11 t} tablet by [facility] tablet 00:00: 00:00 oral route 00 :00 2 times every day furosemide 2020-0 2020- No 1{table Q12H take 1 [facility] 40 mg -09 27-11 t} tablet by [facility] tablet 00:00: 00:00 oral route 00 :00 2 times every day furosemide 2020-0 2020- No 1{table Q12H take 1 [facility] 40 mg -09 27-11 t} tablet by [facility] tablet 00:00: 00:00 oral route 00 :00 2 times every day furosemide 2020-0 2020- No 1{table Q12H take 1 [facility] 40 mg -09 27- t} tablet by [facility] tablet 00:00: 00:00 oral route 00 :00 2 times every day furosemide 2020-0 2020- No 1{table Q12H take 1 [facility] 40 mg 04-04- t} tablet by [facility] tablet 00:00: 00:00 oral route 00 :00 2 times every day furosemide 2020-0 2020- No 1{table Q12H take 1 [facility] 40 mg -09 27- t} tablet by [facility] tablet 00:00: 00:00 oral route 00 :00 2 times every day furosemide 2020-0 2020- No 1{table Q12H take 1 [facility] 40 mg 04-04- t} tablet by [facility] tablet 00:00: 00:00 oral route 00 :00 2 times every day furosemide 2020-0 2020- No 1{table Q12H take 1 [facility] 40 mg 04-04- t} tablet by [facility] tablet 00:00: 00:00 oral route 00 :00 2 times every day furosemide 2020-0 2020- No 1{table Q12H take 1 [facility] 40 mg 04-04- t} tablet by [facility] tablet 00:00: 00:00 oral route 00 :00 2 times every day furosemide 2020-0 2020- No 1{table Q12H take 1 [facility] 40 mg 04-04- t} tablet by [facility] tablet 00:00: 00:00 oral route 00 :00 2 times every day furosemide 2020-0 2020- No 1{table Q12H take 1 [facility] 40 mg 1-09 27- t} tablet by [facility] tablet 00:00: 00:00 oral route 00 :00 2 times every day furosemide 2020-0 2020- No 1{table Q12H take 1 [facility] 40 mg 04-04-11 t} tablet by [facility] tablet 00:00: 00:00 oral route 00 :00 2 times every day ipratropium 2020-0 2020- No inhale 3 [facility] -albuterol 04-04- milliliter ea lth 0.5 mg-3 00:00: 00:00 s by mg(2.5 mg 00 :00 nebulizati base)/3 mL on route 4 nebulizatio times per n soln day and as needed, up to 6 doses per day ipratropium 2019-0 2020- No inhale 3 [facility] -albuterol 04-04 milliliter ea lth 0.5 mg-3 00:00: 00:00 s by mg(2.5 mg 00 :00 nebulizati base)/3 mL on route 4 nebulizatio times per n soln day and as needed, up to 6 doses per day ipratropium 2019-0 2020- No inhale 3 [facility] -albuterol 04-04 milliliter ea lth 0.5 mg-3 00:00: 00:00 s by mg(2.5 mg 00 :00 nebulizati base)/3 mL on route 4 nebulizatio times per n soln day and as needed, up to 6 doses per day ipratropium 2019-0 2020- No inhale 3 [facility] -albuterol 04-04 milliliter ea lth 0.5 mg-3 00:00: 00:00 s by mg(2.5 mg 00 :00 nebulizati base)/3 mL on route 4 nebulizatio times per n soln day and as needed, up to 6 doses per day ipratropium 2019-0 2020- No inhale 3 [facility] -albuterol 04-04 milliliter ea lth 0.5 mg-3 00:00: 00:00 s by mg(2.5 mg 00 :00 nebulizati base)/3 mL on route 4 nebulizatio times per n soln day and as needed, up to 6 doses per day ipratropium 2019-0 2020- No inhale 3 [facility] -albuterol 04-04 milliliter ea lth 0.5 mg-3 00:00: 00:00 s by mg(2.5 mg 00 :00 nebulizati base)/3 mL on route 4 nebulizatio times per n soln day and as needed, up to 6 doses per day ipratropium 2020-0 2020- No inhale 3 [facility] -albuterol 04-04- milliliter ea lth 0.5 mg-3 00:00: 00:00 s by mg(2.5 mg 00 :00 nebulizati base)/3 mL on route 4 nebulizatio times per n soln day and as needed, up to 6 doses per day ipratropium 2019-0 2020- No inhale 3 [facility] -albuterol 04-04- milliliter ea lth 0.5 mg-3 00:00: 00:00 s by mg(2.5 mg 00 :00 nebulizati base)/3 mL on route 4 nebulizatio times per n soln day and as needed, up to 6 doses per day ipratropium 2019-0 2020- No inhale 3 [facility] -albuterol 04-04- milliliter ea lth 0.5 mg-3 00:00: 00:00 s by mg(2.5 mg 00 :00 nebulizati base)/3 mL on route 4 nebulizatio times per n soln day and as needed, up to 6 doses per day ipratropium 2019-0 2020- No inhale 3 [facility] -albuterol 04-04 milliliter ea lth 0.5 mg-3 00:00: 00:00 s by mg(2.5 mg 00 :00 nebulizati base)/3 mL on route 4 nebulizatio times per n soln day and as needed, up to 6 doses per day ipratropium 2019-0 2020- No inhale 3 [facility] -albuterol 04-04- milliliter ea lth 0.5 mg-3 00:00: 00:00 s by mg(2.5 mg 00 :00 nebulizati base)/3 mL on route 4 nebulizatio times per n soln day and as needed, up to 6 doses per day ipratropium 2019-0 2020- No inhale 3 [facility] -albuterol 04-04- milliliter ea lth 0.5 mg-3 00:00: 00:00 s by mg(2.5 mg 00 :00 nebulizati base)/3 mL on route 4 nebulizatio times per n soln day and as needed, up to 6 doses per day ipratropium 2019-0 2020- No inhale 3 [facility] -albuterol 04-04 milliliter ea lth 0.5 mg-3 00:00: 00:00 s by mg(2.5 mg 00 :00 nebulizati base)/3 mL on route 4 nebulizatio times per n soln day and as needed, up to 6 doses per day ipratropium 2019-0 2020- No inhale 3 [facility] -albuterol 04-04 milliliter ea lth 0.5 mg-3 00:00: 00:00 s by mg(2.5 mg 00 :00 nebulizati base)/3 mL on route 4 nebulizatio times per n soln day and as needed, up to 6 doses per day ipratropium 2019-0 2020- No inhale 3 [facility] -albuterol 04-04 milliliter ea lth 0.5 mg-3 00:00: 00:00 s by mg(2.5 mg 00 :00 nebulizati base)/3 mL on route 4 nebulizatio times per n soln day and as needed, up to 6 doses per day ipratropium 2019-0 2020- No inhale 3 [facility] -albuterol 04-04 milliliter ea lth 0.5 mg-3 00:00: 00:00 s by mg(2.5 mg 00 :00 nebulizati base)/3 mL on route 4 nebulizatio times per n soln day and as needed, up to 6 doses per day ipratropium 2019-0 2020- No inhale 3 [facility] -albuterol 04-04 milliliter ea lth 0.5 mg-3 00:00: 00:00 s by mg(2.5 mg 00 :00 nebulizati base)/3 mL on route 4 nebulizatio times per n soln day and as needed, up to 6 doses per day ipratropium 2019-0 2020- No inhale 3 [facility] -albuterol 04-04 milliliter ea lth 0.5 mg-3 00:00: 00:00 s by mg(2.5 mg 00 :00 nebulizati base)/3 mL on route 4 nebulizatio times per n soln day and as needed, up to 6 doses per day ipratropium 2019-0 2020- No inhale 3 [facility] -albuterol 04-04 milliliter ea lth 0.5 mg-3 00:00: 00:00 s by mg(2.5 mg 00 :00 nebulizati base)/3 mL on route 4 nebulizatio times per n soln day and as needed, up to 6 doses per day ipratropium 2019-0 2020- No inhale 3 [facility] -albuterol 04-04 milliliter ea lth 0.5 mg-3 00:00: 00:00 s by mg(2.5 mg 00 :00 nebulizati base)/3 mL on route 4 nebulizatio times per n soln day and as needed, up to 6 doses per day ipratropium 2019-0 2020- No inhale 3 [facility] -albuterol 04-04 milliliter ea lth 0.5 mg-3 00:00: 00:00 s by mg(2.5 mg 00 :00 nebulizati base)/3 mL on route 4 nebulizatio times per n soln day and as needed, up to 6 doses per day ipratropium 2019-0 2020- No inhale 3 [facility] -albuterol 04-04 milliliter ea lth 0.5 mg-3 00:00: 00:00 s by mg(2.5 mg 00 :00 nebulizati base)/3 mL on route 4 nebulizatio times per n soln day and as needed, up to 6 doses per day ipratropium 2019-0 2020- No inhale 3 [facility] -albuterol 04-04 milliliter ea lth 0.5 mg-3 00:00: 00:00 s by mg(2.5 mg 00 :00 nebulizati base)/3 mL on route 4 nebulizatio times per n soln day and as needed, up to 6 doses per day ipratropium 2020-0 2020- No inhale 3 [facility] -albuterol 04-04- milliliter ea lth 0.5 mg-3 00:00: 00:00 s by mg(2.5 mg 00 :00 nebulizati base)/3 mL on route 4 nebulizatio times per n soln day and as needed, up to 6 doses per day ipratropium 2019-0 2020- No inhale 3 [facility] -albuterol 04-04 milliliter ea lth 0.5 mg-3 00:00: 00:00 s by mg(2.5 mg 00 :00 nebulizati base)/3 mL on route 4 nebulizatio times per n soln day and as needed, up to 6 doses per day ipratropium 2019-0 2020- No inhale 3 [facility] -albuterol 04-04 milliliter ea lth 0.5 mg-3 00:00: 00:00 s by mg(2.5 mg 00 :00 nebulizati base)/3 mL on route 4 nebulizatio times per n soln day and as needed, up to 6 doses per day ipratropium 2019-0 2020- No inhale 3 [facility] -albuterol 04-04 milliliter ea lth 0.5 mg-3 00:00: 00:00 s by mg(2.5 mg 00 :00 nebulizati base)/3 mL on route 4 nebulizatio times per n soln day and as needed, up to 6 doses per day ipratropium 2019-0 2020- No inhale 3 [facility] -albuterol 04-04 milliliter ea lth 0.5 mg-3 00:00: 00:00 s by mg(2.5 mg 00 :00 nebulizati base)/3 mL on route 4 nebulizatio times per n soln day and as needed, up to 6 doses per day ipratropium 2019-0 2020- No inhale 3 [facility] -albuterol 04-04- milliliter ea lth 0.5 mg-3 00:00: 00:00 s by mg(2.5 mg 00 :00 nebulizati base)/3 mL on route 4 nebulizatio times per n soln day and as needed, up to 6 doses per day ipratropium 2020-0 2020- No inhale 3 [facility] -albuterol 04-04- milliliter ea lth 0.5 mg-3 00:00: 00:00 s by mg(2.5 mg 00 :00 nebulizati base)/3 mL on route 4 nebulizatio times per n soln day and as needed, up to 6 doses per day ipratropium 2020-0 2020- No inhale 3 [facility] -albuterol 04-04- milliliter ea lth 0.5 mg-3 00:00: 00:00 s by mg(2.5 mg 00 :00 nebulizati base)/3 mL on route 4 nebulizatio times per n soln day and as needed, up to 6 doses per day ipratropium 2020-0 2020- No inhale 3 [facility] -albuterol 04-04 milliliter ea lth 0.5 mg-3 00:00: 00:00 s by mg(2.5 mg 00 :00 nebulizati base)/3 mL on route 4 nebulizatio times per n soln day and as needed, up to 6 doses per day ipratropium 2020-0 2020- No inhale 3 [facility] -albuterol 04-04 milliliter ea lth 0.5 mg-3 00:00: 00:00 s by mg(2.5 mg 00 :00 nebulizati base)/3 mL on route 4 nebulizatio times per n soln day and as needed, up to 6 doses per day ipratropium 2019-0 2020- No inhale 3 [facility] -albuterol 04-04- milliliter ea lth 0.5 mg-3 00:00: 00:00 s by mg(2.5 mg 00 :00 nebulizati base)/3 mL on route 4 nebulizatio times per n soln day and as needed, up to 6 doses per day ipratropium 2020-0 2020- No inhale 3 [facility] -albuterol 04-04- milliliter ea lth 0.5 mg-3 00:00: 00:00 s by mg(2.5 mg 00 :00 nebulizati base)/3 mL on route 4 nebulizatio times per n soln day and as needed, up to 6 doses per day ipratropium 2019-0 2020- No inhale 3 A [facility] -albuterol 04-04 milliliter ea lth 0.5 mg-3 00:00: 00:00 s by mg(2.5 mg 00 :00 nebulizati base)/3 mL on route 4 nebulizatio times per n soln day and as needed, up to 6 doses per day ipratropium 2019-0 2020- No inhale 3 A [facility] -albuterol 04-04 milliliter ea lth 0.5 mg-3 00:00: 00:00 s by mg(2.5 mg 00 :00 nebulizati base)/3 mL on route 4 nebulizatio times per n soln day and as needed, up to 6 doses per day ipratropium 2019-0 2020- No inhale 3 A [facility] -albuterol 04-04 milliliter ea lth 0.5 mg-3 00:00: 00:00 s by mg(2.5 mg 00 :00 nebulizati base)/3 mL on route 4 nebulizatio times per n soln day and as needed, up to 6 doses per day ipratropium 2019-0 2020- No inhale 3 A [facility] -albuterol 04-04 milliliter ea lth 0.5 mg-3 00:00: 00:00 s by mg(2.5 mg 00 :00 nebulizati base)/3 mL on route 4 nebulizatio times per n soln day and as needed, up to 6 doses per day ipratropium 2019-0 2020- No inhale 3 A [facility] -albuterol 04-04 milliliter ea lth 0.5 mg-3 00:00: 00:00 s by mg(2.5 mg 00 :00 nebulizati base)/3 mL on route 4 nebulizatio times per n soln day and as needed, up to 6 doses per day ipratropium 2019-0 2020- No inhale 3 A [facility] -albuterol 04-04 milliliter ea lth 0.5 mg-3 00:00: 00:00 s by mg(2.5 mg 00 :00 nebulizati base)/3 mL on route 4 nebulizatio times per n soln day and as needed, up to 6 doses per day ipratropium 2019-0 2020- No inhale 3 A [facility] -albuterol 04-04 milliliter ea lth 0.5 mg-3 00:00: 00:00 s by mg(2.5 mg 00 :00 nebulizati base)/3 mL on route 4 nebulizatio times per n soln day and as needed, up to 6 doses per day ipratropium 2019-2019- No inhale 3 A [facility] -albuterol 04-04 milliliter ea lth 0.5 mg-3 00:00: 00:00 s by mg(2.5 mg 00 :00 nebulizati base)/3 mL on route 4 nebulizatio times per n soln day and as needed, up to 6 doses per day ipratropium 2019-0 2020- No inhale 3 A [facility] -albuterol 04-04 milliliter ea lth 0.5 mg-3 00:00: 00:00 s by mg(2.5 mg 00 :00 nebulizati base)/3 mL on route 4 nebulizatio times per n soln day and as needed, up to 6 doses per day ipratropium 2019-2019- No inhale 3 A [facility] -albuterol 04-04 milliliter ea lth 0.5 mg-3 00:00: 00:00 s by mg(2.5 mg 00 :00 nebulizati base)/3 mL on route 4 nebulizatio times per n soln day and as needed, up to 6 doses per day ipratropium 2019-0 2020- No inhale 3 A [facility] -albuterol 04-04- milliliter ea lth 0.5 mg-3 00:00: 00:00 s by mg(2.5 mg 00 :00 nebulizati base)/3 mL on route 4 nebulizatio times per n soln day and as needed, up to 6 doses per day ipratropium 2020-0 2020- No inhale 3 A [facility] -albuterol 04-04- milliliter ea lth 0.5 mg-3 00:00: 00:00 s by mg(2.5 mg 00 :00 nebulizati base)/3 mL on route 4 nebulizatio times per n soln day and as needed, up to 6 doses per day ipratropium 2019-0 2020- No inhale 3 A [facility] -albuterol 04-04 milliliter ea lth 0.5 mg-3 00:00: 00:00 s by mg(2.5 mg 00 :00 nebulizati base)/3 mL on route 4 nebulizatio times per n soln day and as needed, up to 6 doses per day ipratropium 2019-0 2020- No inhale 3 A [facility] -albuterol 04-04 milliliter ea lth 0.5 mg-3 00:00: 00:00 s by mg(2.5 mg 00 :00 nebulizati base)/3 mL on route 4 nebulizatio times per n soln day and as needed, up to 6 doses per day ipratropium 2019-0 2020- No inhale 3 A [facility] -albuterol 04-04 milliliter ea lth 0.5 mg-3 00:00: 00:00 s by mg(2.5 mg 00 :00 nebulizati base)/3 mL on route 4 nebulizatio times per n soln day and as needed, up to 6 doses per day ipratropium 2019-0 2020- No inhale 3 A [facility]cess[facility] -albuterol 04-04 milliliter ea lth 0.5 mg-3 00:00: 00:00 s by mg(2.5 mg 00 :00 nebulizati base)/3 mL on route 4 nebulizatio times per n soln day and as needed, up to 6 doses per day ipratropium 2019-0 2020- No inhale 3 A ccess[facility] -albuterol 04-04- milliliter ea lth 0.5 mg-3 00:00: 00:00 s by mg(2.5 mg 00 :00 nebulizati base)/3 mL on route 4 nebulizatio times per n soln day and as needed, up to 6 doses per day ipratropium 2019- No inhale 3 A ccess[facility] -albuterol 04-04 milliliter ea lth 0.5 mg-3 00:00: 00:00 s by mg(2.5 mg 00 :00 nebulizati base)/3 mL on route 4 nebulizatio times per n soln day and as needed, up to 6 doses per day ipratropium No inhale 3 A ccess[facility] -albuterol 04-04 milliliter ea lth 0.5 mg-3 00:00: 00:00 s by mg(2.5 mg 00 :00 nebulizati base)/3 mL on route 4 nebulizatio times per n soln day and as needed, up to 6 doses per day amlodipine 2019- No take 1 [facility] 5 mg tablet 07-26 tablet (5 ea lth 00:00: 00:00 mg) by 00 :00 oral route once daily atorvastati 2019- No take 1 [facility] n 80 mg 07-26 tablet by [facility] tablet 00:00: 00:00 Oral route 00 :00 1 time per day bumetanide 2019- No take 1 [facility] 1 mg tablet 07-26 tablet (1 ea lth 00:00: 00:00 mg) by 00 :00 oral route 2 times per day isosorbide 2019- No take 1 [facility] mononitrate 07-26 tablet (60 e alth ER 60 mg 00:00: 00:00 mg) by tablet,exte 00 :00 oral route nded once daily release 24 in the hr morning Levemir 2019- No inject 34 [facility] FlexTouch 07-26 Units by [facility] U-100 00:00: 00:00 Subcutaneo Insulin 100 00 :00 us route 2 unit/mL (3 times per mL) day in the subcutaneou morning s pen and evening lisinopril 2019- No take 1 [facility] 40 mg 07-26 tablet (40 [facility] tablet 00:00: 00:00 mg) by 00 :00 oral route once daily metolazone take 1 [facility] 5 mg tablet 07-26 tablet (5 ea lth 00:00: 00:00 mg) by 00 :00 oral route once daily ProAir HFA inhale 2 [facility] 90 07-26 puffs (180 [facility] mcg/actuati 00:00: 00:00 mcg) by on aerosol 00 :00 inhalation inhaler route every 4 hours as needed carvedilol take 1 [facility] 25 mg 07-26 tablet (25 [facility] tablet 00:00: 00:00 mg) by 00 :00 oral route 2 times per day with food clopidogrel take 1 [facility] 75 mg 07-26 tablet (75 [facility] tablet 00:00: 00:00 mg) by 00 :00 oral route once daily Humalog inject Access[facility] KwikPen 07-26 5-10 Units [facility] (U-100) 00:00: 00:00 by Insulin 100 00 :00 Subcutaneo unit/mL us route 3 subcutaneou times per s day on a sliding scale three times a day before meals ipratropium inhale 3 A ccess[facility] -albuterol 07-26 milliliter ea lth 0.5 mg-3 00:00: 00:00 s by mg(2.5 mg 00 :00 nebulizati base)/3 mL on route 4 nebulizatio times per n soln day and as needed, up to 6 doses per day Requip 0.5 take 2 [facility] mg tablet 07-26 tablets by eal th 00:00: 00:00 Oral route 00 :00 1 time per day 1-3 hours before bedtime for restless legs amlodipine 2019- No take 1 [facility] 5 mg tablet 07-26 tablet (5 ea lth 00:00: 00:00 mg) by 00 :00 oral route once daily atorvastati take 1 [facility] n 80 mg 07-26 tablet by [facility] tablet 00:00: 00:00 Oral route 00 :00 1 time per day bumetanide 2019- No take 1 [facility] 1 mg tablet 07-26 tablet (1 ea lth 00:00: 00:00 mg) by 00 :00 oral route 2 times per day isosorbide 2019- No take 1 [facility] mononitrate 07-26 tablet (60 e alth ER 60 mg 00:00: 00:00 mg) by tablet,exte 00 :00 oral route nded once daily release 24 in the hr morning Levemir 2019- No inject 34 [facility] FlexTouch 07-26 Units by [facility] U-100 00:00: 00:00 Subcutaneo Insulin 100 00 :00 us route 2 unit/mL (3 times per mL) day in the subcutaneou morning s pen and evening lisinopril 2019- take 1 [facility] 40 mg 07-26 tablet (40 [facility] tablet 00:00: 00:00 mg) by 00 :00 oral route once daily metolazone 2019- No take 1 [facility] 5 mg tablet 07-26 tablet (5 ea lth 00:00: 00:00 mg) by 00 :00 oral route once daily ProAir HFA 2019- inhale 2 [facility] 90 07-26 puffs (180 [facility] mcg/actuati 00:00: 00:00 mcg) by on aerosol 00 :00 inhalation inhaler route every 4 hours as needed carvedilol 2019- take 1 [facility] 25 mg 07-26 tablet (25 [facility] tablet 00:00: 00:00 mg) by 00 :00 oral route 2 times per day with food clopidogrel 2019- No take 1 [facility] 75 mg 07-26 tablet (75 [facility] tablet 00:00: 00:00 mg) by 00 :00 oral route once daily Humalog No inject Access[facility] KwikPen 07-26 5-10 Units [facility] (U-100) 00:00: 00:00 by Insulin 100 00 :00 Subcutaneo unit/mL us route 3 subcutaneou times per s day on a sliding scale three times a day before meals ipratropium 2019- No inhale 3 A ccess[facility] -albuterol 07-26 milliliter ea lth 0.5 mg-3 00:00: 00:00 s by mg(2.5 mg 00 :00 nebulizati base)/3 mL on route 4 nebulizatio times per n soln day and as needed, up to 6 doses per day Requip 0.5 2019- No take 2 [facility] mg tablet 07-26 tablets by eal th 00:00: 00:00 Oral route 00 :00 1 time per day 1-3 hours before bedtime for restless legs amlodipine 2019- No take 1 [facility] 5 mg tablet 07-26 tablet (5 ea lth 00:00: 00:00 mg) by 00 :00 oral route once daily atorvastati 2019- No take 1 [facility] n 80 mg 07-26 tablet by [facility] tablet 00:00: 00:00 Oral route 00 :00 1 time per day bumetanide 2019- No take 1 [facility] 1 mg tablet 07-26 tablet (1 ea lth 00:00: 00:00 mg) by 00 :00 oral route 2 times per day isosorbide 2019- No take 1 [facility] mononitrate 07-26 tablet (60 e alth ER 60 mg 00:00: 00:00 mg) by tablet,exte 00 :00 oral route nded once daily release 24 in the hr morning Levemir 2019- No inject 34 [facility] FlexTouch 07-26 Units by [facility] U-100 00:00: 00:00 Subcutaneo Insulin 100 00 :00 us route 2 unit/mL (3 times per mL) day in the subcutaneou morning s pen and evening lisinopril 2019- No take 1 [facility] 40 mg 07-26 tablet (40 [facility] tablet 00:00: 00:00 mg) by 00 :00 oral route once daily metolazone take 1 [facility] 5 mg tablet 07-26 tablet (5 ea lth 00:00: 00:00 mg) by 00 :00 oral route once daily ProAir HFA inhale 2 [facility] 90 07-26 puffs (180 [facility] mcg/actuati 00:00: 00:00 mcg) by on aerosol 00 :00 inhalation inhaler route every 4 hours as needed carvedilol take 1 [facility] 25 mg 07-26 tablet (25 ealth tablet 00:00: 00:00 mg) by 00 :00 oral route 2 times per day with food clopidogrel take 1 [facility] 75 mg 07-26 tablet (75 ealth tablet 00:00: 00:00 mg) by 00 :00 oral route once daily Humalog inject [facility] KwikPen 07-26 5-10 Units ealth (U-100) 00:00: 00:00 by Insulin 100 00 :00 Subcutaneo unit/mL us route 3 subcutaneou times per s day on a sliding scale three times a day before meals ipratropium inhale 3 A ccessH -albuterol 07-26 milliliter ea lth 0.5 mg-3 00:00: 00:00 s by mg(2.5 mg 00 :00 nebulizati base)/3 mL on route 4 nebulizatio times per n soln day and as needed, up to 6 doses per day Requip 0.5 take 2 [facility] mg tablet 07-26 tablets by [facility] 00:00: 00:00 Oral route 00 :00 1 time per day 1-3 hours before bedtime for restless legs amlodipine No take 1 [facility] 5 mg tablet 07-26 tablet (5 ea lth 00:00: 00:00 mg) by 00 :00 oral route once daily atorvastati No take 1 [facility] n 80 mg 07-26 tablet by ealth tablet 00:00: 00:00 Oral route 00 :00 1 time per day bumetanide 2019- No take 1 [facility] 1 mg tablet 07-26 tablet (1 ea lth 00:00: 00:00 mg) by 00 :00 oral route 2 times per day isosorbide 2019- No take 1 [facility] mononitrate 07-26 tablet (60 e alth ER 60 mg 00:00: 00:00 mg) by tablet,exte 00 :00 oral route nded once daily release 24 in the hr morning Levemir 2019- No inject 34 [facility] FlexTouch 07-26 Units by ealth U-100 00:00: 00:00 Subcutaneo Insulin 100 00 :00 us route 2 unit/mL (3 times per mL) day in the subcutane morning s pen and evening lisinopril 2019- take 1 [facility] 40 mg 07-26 tablet (40 ealth tablet 00:00: 00:00 mg) by 00 :00 oral route once daily metolazone 2019- No take 1 [facility] 5 mg tablet 07-26 tablet (5 ea lth 00:00: 00:00 mg) by 00 :00 oral route once daily ProAir HFA inhale 2 [facility] 90 07-26 puffs (180 ealth mcg/actuati 00:00: 00:00 mcg) by on aerosol 00 :00 inhalation inhaler route every 4 hours as needed carvedilol 2019- take 1 [facility] 25 mg 07-26 tablet (25 [facility] tablet 00:00: 00:00 mg) by 00 :00 oral route 2 times per day with food clopidogrel take 1 [facility] 75 mg 07-26 tablet (75 [facility] tablet 00:00: 00:00 mg) by 00 :00 oral route once daily Humalog 2019- No inject [facility] KwikPen 07-26 5-10 Units ealth (U-100) 00:00: 00:00 by Insulin 100 00 :00 Subcutaneo unit/mL us route 3 subcutaneou times per s day on a sliding scale three times a day before meals ipratropium 2019- No inhale 3 A [facility] -albuterol 07-26 milliliter ea lth 0.5 mg-3 00:00: 00:00 s by mg(2.5 mg 00 :00 nebulizati base)/3 mL on route 4 nebulizatio times per n soln day and as needed, up to 6 doses per day Requip 0.5 2019- No take 2 [facility] mg tablet 07-26 tablets by eal th 00:00: 00:00 Oral route 00 :00 1 time per day 1-3 hours before bedtime for restless legs amlodipine 2019- No take 1 [facility] 5 mg tablet 07-26 tablet (5 ea lth 00:00: 00:00 mg) by 00 :00 oral route once daily atorvastati 2019- No take 1 [facility] n 80 mg 07-26 tablet by [facility] tablet 00:00: 00:00 Oral route 00 :00 1 time per day bumetanide 2019- No take 1 [facility] 1 mg tablet 07-26 tablet (1 ea lth 00:00: 00:00 mg) by 00 :00 oral route 2 times per day isosorbide 2019- No take 1 [facility] mononitrate 07-26 tablet (60 e alth ER 60 mg 00:00: 00:00 mg) by tablet,exte 00 :00 oral route nded once daily release 24 in the hr morning Levemir 2019- No inject 34 [facility] FlexTouch 07-26 Units by [facility] U-100 00:00: 00:00 Subcutaneo Insulin 100 00 :00 us route 2 unit/mL (3 times per mL) day in the subcutaneou morning s pen and evening lisinopril 2019- No take 1 [facility] 40 mg 07-26 tablet (40 [facility] tablet 00:00: 00:00 mg) by 00 :00 oral route once daily metolazone take 1 [facility] 5 mg tablet 07-26 tablet (5 ea lth 00:00: 00:00 mg) by 00 :00 oral route once daily ProAir HFA inhale 2 [facility] 90 07-26 puffs (180 e[facility] mcg/actuati 00:00: 00:00 mcg) by on aerosol 00 :00 inhalation inhaler route every 4 hours as needed carvedilol take 1 [facility] 25 mg 07-26 tablet (25 [facility] tablet 00:00: 00:00 mg) by 00 :00 oral route 2 times per day with food clopidogrel take 1 [facility] 75 mg 07-26 tablet (75 [facility] tablet 00:00: 00:00 mg) by 00 :00 oral route once daily Humalog inject [facility] KwikPen 07-26 5-10 Units ealth (U-100) 00:00: 00:00 by Insulin 100 00 :00 Subcutaneo unit/mL us route 3 subcutaneou times per s day on a sliding scale three times a day before meals ipratropium inhale 3 [facility] -albuterol 07-26 milliliter ea lth 0.5 mg-3 00:00: 00:00 s by mg(2.5 mg 00 :00 nebulizati base)/3 mL on route 4 nebulizatio times per n soln day and as needed, up to 6 doses per day Requip 0.5 take 2 [facility] mg tablet 07-26 tablets by eal th 00:00: 00:00 Oral route 00 :00 1 time per day 1-3 hours before bedtime for restless legs amlodipine take 1 [facility] 5 mg tablet 07-26 tablet (5 ea lth 00:00: 00:00 mg) by 00 :00 oral route once daily atorvastati No take 1 [facility] n 80 mg 07-26 tablet by [facility] tablet 00:00: 00:00 Oral route 00 :00 1 time per day bumetanide 2019- No take 1 [facility] 1 mg tablet 07-26 tablet (1 ea lth 00:00: 00:00 mg) by 00 :00 oral route 2 times per day isosorbide 2019- No take 1 [facility] mononitrate 07-26 tablet (60 e alth ER 60 mg 00:00: 00:00 mg) by tablet,exte 00 :00 oral route nded once daily release 24 in the hr morning Levemir 2019- No inject 34 [facility] FlexTouch 07-26 Units by [facility] U-100 00:00: 00:00 Subcutaneo Insulin 100 00 :00 us route 2 unit/mL (3 times per mL) day in the subcutaneou morning s pen and evening lisinopril 2019- No take 1 [facility] 40 mg 07-26 tablet (40 [facility] tablet 00:00: 00:00 mg) by 00 :00 oral route once daily metolazone 2019- No take 1 [facility] 5 mg tablet 07-26 tablet (5 ea lth 00:00: 00:00 mg) by 00 :00 oral route once daily ProAir HFA 2019- No inhale 2 [facility] 90 07-26 puffs (180 ealth mcg/actuati 00:00: 00:00 mcg) by on aerosol 00 :00 inhalation inhaler route every 4 hours as needed carvedilol 2019- No take 1 [facility] 25 mg 07-26 tablet (25 [facility] tablet 00:00: 00:00 mg) by 00 :00 oral route 2 times per day with food clopidogrel 2019- No take 1 [facility] 75 mg 07-26 tablet (75 [facility] tablet 00:00: 00:00 mg) by 00 :00 oral route once daily Humalog 2019- No inject [facility] KwikPen 07-26 5-10 Units ealth (U-100) 00:00: 00:00 by Insulin 100 00 :00 Subcutaneo unit/mL us route 3 subcutaneou times per s day on a sliding scale three times a day before meals ipratropium 2019- No inhale 3 [facility] -albuterol 07-26 milliliter ea lth 0.5 mg-3 00:00: 00:00 s by mg(2.5 mg 00 :00 nebulizati base)/3 mL on route 4 nebulizatio times per n soln day and as needed, up to 6 doses per day Requip 0.5 2019- No take 2 [facility] mg tablet 07-26 tablets by eal th 00:00: 00:00 Oral route 00 :00 1 time per day 1-3 hours before bedtime for restless legs amlodipine 2019- No take 1 [facility] 5 mg tablet 07-26 tablet (5 ea lth 00:00: 00:00 mg) by 00 :00 oral route once daily atorvastati 2019- No take 1 [facility] n 80 mg 07-26 tablet by [facility] tablet 00:00: 00:00 Oral route 00 :00 1 time per day bumetanide 2019- No take 1 [facility] 1 mg tablet 07-26 tablet (1 ea lth 00:00: 00:00 mg) by 00 :00 oral route 2 times per day isosorbide 2019- No take 1 [facility] mononitrate 07-26 tablet (60 e alth ER 60 mg 00:00: 00:00 mg) by tablet,exte 00 :00 oral route nded once daily release 24 in the hr morning Levemir 2019- No inject 34 [facility] FlexTouch 07-26 Units by [facility]alt U-100 00:00: 00:00 Subcutaneo Insulin 100 00 :00 us route 2 unit/mL (3 times per mL) day in the subcutaneou morning s pen and evening lisinopril 2019- No take 1 [facility] 40 mg 07-26 tablet (40 [facility] tablet 00:00: 00:00 mg) by 00 :00 oral route once daily metolazone 2019- No take 1 [facility] 5 mg tablet 07-26 tablet (5 ea lth 00:00: 00:00 mg) by 00 :00 oral route once daily ProAir HFA 2019- inhale 2 [facility] 90 07-26 puffs (180 e[facility] mcg/actuati 00:00: 00:00 mcg) by on aerosol 00 :00 inhalation inhaler route every 4 hours as needed carvedilol 2019- take 1 [facility] 25 mg 07-26 tablet (25 [facility] tablet 00:00: 00:00 mg) by 00 :00 oral route 2 times per day with food clopidogrel 2019- take 1 [facility] 75 mg 07-26 tablet (75 [facility] tablet 00:00: 00:00 mg) by 00 :00 oral route once daily Humalog inject [facility] KwikPen 07-26 5-10 Units e[facility] (U-100) 00:00: 00:00 by Insulin 100 00 :00 Subcutaneo unit/mL us route 3 subcutaneou times per s day on a sliding scale three times a day before meals ipratropium 2019- inhale 3 [facility] -albuterol 07-26 milliliter ea lth 0.5 mg-3 00:00: 00:00 s by mg(2.5 mg 00 :00 nebulizati base)/3 mL on route 4 nebulizatio times per n soln day and as needed, up to 6 doses per day Requip 0.5 2019- take 2 [facility] mg tablet 07-26 tablets by eal th 00:00: 00:00 Oral route 00 :00 1 time per day 1-3 hours before bedtime for restless legs amlodipine 2019- No take 1 [facility] 5 mg tablet 07-26 tablet (5 ea lth 00:00: 00:00 mg) by 00 :00 oral route once daily atorvastati 2019- No take 1 [facility] n 80 mg 07-26 tablet by [facility] tablet 00:00: 00:00 Oral route 00 :00 1 time per day bumetanide take 1 [facility] 1 mg tablet 07-26 tablet (1 ea lth 00:00: 00:00 mg) by 00 :00 oral route 2 times per day isosorbide take 1 [facility] mononitrate 07-26 tablet (60 e alth ER 60 mg 00:00: 00:00 mg) by tablet,exte 00 :00 oral route nded once daily release 24 in the hr morning Levemir inject 34 [facility] FlexTouch 07-26 Units by [facility] U-100 00:00: 00:00 Subcutaneo Insulin 100 00 :00 us route 2 unit/mL (3 times per mL) day in the subcutaneou morning s pen and evening lisinopril take 1 [facility] 40 mg 07-26 tablet (40 [facility] tablet 00:00: 00:00 mg) by 00 :00 oral route once daily metolazone take 1 [facility] 5 mg tablet 07-26 tablet (5 ea lth 00:00: 00:00 mg) by 00 :00 oral route once daily ProAir HFA inhale 2 [facility] 90 07-26 puffs (180 ealth mcg/actuati 00:00: 00:00 mcg) by on aerosol 00 :00 inhalation inhaler route every 4 hours as needed carvedilol take 1 [facility] 25 mg 07-26 tablet (25 [facility] tablet 00:00: 00:00 mg) by 00 :00 oral route 2 times per day with food clopidogrel take 1 [facility] 75 mg 07-26 tablet (75 [facility] tablet 00:00: 00:00 mg) by 00 :00 oral route once daily Humalog inject [facility] KwikPen 07-26 5-10 Units ealth (U-100) 00:00: 00:00 by Insulin 100 00 :00 Subcutaneo unit/mL us route 3 subcutaneou times per s day on a sliding scale three times a day before meals ipratropium 2019- No inhale 3 [facility] -albuterol 07-26 milliliter ea lth 0.5 mg-3 00:00: 00:00 s by mg(2.5 mg 00 :00 nebulizati base)/3 mL on route 4 nebulizatio times per n soln day and as needed, up to 6 doses per day Requip 0.5 2019- No take 2 [facility] mg tablet 07-26 tablets by ea th 00:00: 00:00 Oral route 00 :00 1 time per day 1-3 hours before bedtime for restless legs amlodipine No take 1 [facility] 5 mg tablet 07-26 tablet (5 ea lth 00:00: 00:00 mg) by 00 :00 oral route once daily atorvastati 2019- No take 1 [facility] n 80 mg 07-26 tablet by [facility] tablet 00:00: 00:00 Oral route 00 :00 1 time per day bumetanide 2019- No take 1 [facility] 1 mg tablet 07-26 tablet (1 ea lth 00:00: 00:00 mg) by 00 :00 oral route 2 times per day isosorbide 2019- No take 1 [facility] mononitrate 07-26 tablet (60 e alth ER 60 mg 00:00: 00:00 mg) by tablet,exte 00 :00 oral route nded once daily release 24 in the hr morning Levemir 2019- No inject 34 [facility] FlexTouch 07-26 Units by ealt U-100 00:00: 00:00 Subcutaneo Insulin 100 00 :00 us route 2 unit/mL (3 times per mL) day in the subcutaneou morning s pen and evening lisinopril 2019- No take 1 [facility] 40 mg 07-26 tablet (40 [facility] tablet 00:00: 00:00 mg) by 00 :00 oral route once daily metolazone No take 1 [facility] 5 mg tablet 07-26 tablet (5 ea lth 00:00: 00:00 mg) by 00 :00 oral route once daily ProAir HFA 2019- No inhale 2 [facility] 90 07-26 puffs (180 e[facility] mcg/actuati 00:00: 00:00 mcg) by on aerosol 00 :00 inhalation inhaler route every 4 hours as needed carvedilol 2019- No take 1 [facility] 25 mg 07-26 tablet (25 [facility] tablet 00:00: 00:00 mg) by 00 :00 oral route 2 times per day with food clopidogrel 2019- No take 1 [facility] 75 mg 07-26 tablet (75 [facility] tablet 00:00: 00:00 mg) by 00 :00 oral route once daily Humalog inject [facility] KwikPen 07-26 5-10 Units ealth (U-100) 00:00: 00:00 by Insulin 100 00 :00 Subcutaneo unit/mL us route 3 subcutaneou times per s day on a sliding scale three times a day before meals ipratropium 2019- No inhale 3 [facility] -albuterol 07-26 milliliter ea lth 0.5 mg-3 00:00: 00:00 s by mg(2.5 mg 00 :00 nebulizati base)/3 mL on route 4 nebulizatio times per n soln day and as needed, up to 6 doses per day Requip 0.5 2019- No take 2 [facility] mg tablet 07-26 tablets by eal th 00:00: 00:00 Oral route 00 :00 1 time per day 1-3 hours before bedtime for restless legs amlodipine 2019- No take 1 [facility] 5 mg tablet 07-26 tablet (5 ea lth 00:00: 00:00 mg) by 00 :00 oral route once daily atorvastati 2019- No take 1 [facility] n 80 mg 07-26 tablet by [facility] tablet 00:00: 00:00 Oral route 00 :00 1 time per day bumetanide 2019- No take 1 [facility] 1 mg tablet 07-26 tablet (1 ea lth 00:00: 00:00 mg) by 00 :00 oral route 2 times per day isosorbide 2019- take 1 [facility] mononitrate 07-26 tablet (60 e alth ER 60 mg 00:00: 00:00 mg) by tablet,exte 00 :00 oral route nded once daily release 24 in the hr morning Levemir 2019- No inject 34 [facility] FlexTouch 07-26 Units by ealth U-100 00:00: 00:00 Subcutaneo Insulin 100 00 :00 us route 2 unit/mL (3 times per mL) day in the subcutaneou morning s pen and evening lisinopril take 1 [facility] 40 mg 07-26 tablet (40 [facility] tablet 00:00: 00:00 mg) by 00 :00 oral route once daily metolazone 2019- No take 1 [facility] 5 mg tablet 07-26 tablet (5 ea lth 00:00: 00:00 mg) by 00 :00 oral route once daily ProAir HFA 2019- No inhale 2 [facility] 90 07-26 puffs (180 ealth mcg/actuati 00:00: 00:00 mcg) by on aerosol 00 :00 inhalation inhaler route every 4 hours as needed carvedilol 2019- take 1 [facility] 25 mg 07-26 tablet (25 [facility] tablet 00:00: 00:00 mg) by 00 :00 oral route 2 times per day with food clopidogrel 2019- No take 1 [facility] 75 mg 07-26 tablet (75 [facility] tablet 00:00: 00:00 mg) by 00 :00 oral route once daily Humalog inject [facility] KwikPen 07-26 5-10 Units ealth (U-100) 00:00: 00:00 by Insulin 100 00 :00 Subcutaneo unit/mL us route 3 subcutaneou times per s day on a sliding scale three times a day before meals ipratropium 2019- No inhale 3 [facility] -albuterol 07-26 milliliter ea lth 0.5 mg-3 00:00: 00:00 s by mg(2.5 mg 00 :00 nebulizati base)/3 mL on route 4 nebulizatio times per n soln day and as needed, up to 6 doses per day Requip 0.5 2019- No take 2 [facility] mg tablet 07-26 tablets by eal th 00:00: 00:00 Oral route 00 :00 1 time per day 1-3 hours before bedtime for restless legs amlodipine 2019- No take 1 [facility] 5 mg tablet 07-26 tablet (5 ea lth 00:00: 00:00 mg) by 00 :00 oral route once daily atorvastati 2019- No take 1 [facility] n 80 mg 07-26 tablet by ealt tablet 00:00: 00:00 Oral route 00 :00 1 time per day bumetanide 2019- No take 1 [facility] 1 mg tablet 07-26 tablet (1 ea lth 00:00: 00:00 mg) by 00 :00 oral route 2 times per day isosorbide 2019- No take 1 [facility] mononitrate 07-26 tablet (60 e alth ER 60 mg 00:00: 00:00 mg) by tablet,exte 00 :00 oral route nded once daily release 24 in the hr morning Levemir 2019- No inject 34 [facility] FlexTouch 07-26 Units by [facility] U-100 00:00: 00:00 Subcutaneo Insulin 100 00 :00 us route 2 unit/mL (3 times per mL) day in the subcutaneou morning s pen and evening lisinopril 2019- No take 1 [facility] 40 mg 07-26 tablet (40 ealth tablet 00:00: 00:00 mg) by 00 :00 oral route once daily metolazone 2019- No take 1 [facility] 5 mg tablet 07-26 tablet (5 ea lth 00:00: 00:00 mg) by 00 :00 oral route once daily ProAir HFA 2019- No inhale 2 [facility] 90 07-26 puffs (180 ealth mcg/actuati 00:00: 00:00 mcg) by on aerosol 00 :00 inhalation inhaler route every 4 hours as needed carvedilol 2019- No take 1 [facility] 25 mg 07-26 tablet (25 e[facility] tablet 00:00: 00:00 mg) by 00 :00 oral route 2 times per day with food clopidogrel 2019- No take 1 [facility] 75 mg 07-26 tablet (75 e[facility] tablet 00:00: 00:00 mg) by 00 :00 oral route once daily Humalog inject [facility] KwikPen 07-26 5-10 Units ealth (U-100) 00:00: 00:00 by Insulin 100 00 :00 Subcutaneo unit/mL us route 3 subcutaneou times per s day on a sliding scale three times a day before meals ipratropium 2019- No inhale 3 [facility] -albuterol 07-26 milliliter ea lth 0.5 mg-3 00:00: 00:00 s by mg(2.5 mg 00 :00 nebulizati base)/3 mL on route 4 nebulizatio times per n soln day and as needed, up to 6 doses per day Requip 0.5 2019- No take 2 [facility] mg tablet 07-26 tablets by eal th 00:00: 00:00 Oral route 00 :00 1 time per day 1-3 hours before bedtime for restless legs amlodipine 2019- No take 1 [facility] 5 mg tablet 07-26 tablet (5 ea lth 00:00: 00:00 mg) by 00 :00 oral route once daily atorvastati No take 1 [facility] n 80 mg 07-26 tablet by [facility] tablet 00:00: 00:00 Oral route 00 :00 1 time per day bumetanide 2019- No take 1 [facility] 1 mg tablet 07-26 tablet (1 ea lth 00:00: 00:00 mg) by 00 :00 oral route 2 times per day isosorbide 2019- No take 1 [facility] mononitrate 07-26 tablet (60 e alth ER 60 mg 00:00: 00:00 mg) by tablet,exte 00 :00 oral route nded once daily release 24 in the hr morning Levemir 2019- inject 34 [facility] FlexTouch 07-26 Units by ealth U-100 00:00: 00:00 Subcutaneo Insulin 100 00 :00 us route 2 unit/mL (3 times per mL) day in the subcutaneou morning s pen and evening lisinopril 2019- take 1 [facility] 40 mg 07-26 tablet (40 [facility] tablet 00:00: 00:00 mg) by 00 :00 oral route once daily metolazone 2019- No take 1 [facility] 5 mg tablet 07-26 tablet (5 ea lth 00:00: 00:00 mg) by 00 :00 oral route once daily ProAir HFA 2019- No inhale 2 [facility] 90 07-26 puffs (180 ealth mcg/actuati 00:00: 00:00 mcg) by on aerosol 00 :00 inhalation inhaler route every 4 hours as needed carvedilol 2019- No take 1 [facility] 25 mg 07-26 tablet (25 e[facility] tablet 00:00: 00:00 mg) by 00 :00 oral route 2 times per day with food clopidogrel 2019- No take 1 [facility] 75 mg 07-26 tablet (75 e[facility] tablet 00:00: 00:00 mg) by 00 :00 oral route once daily Humalog 2019- No inject [facility] KwikPen 07-26 5-10 Units ealth (U-100) 00:00: 00:00 by Insulin 100 00 :00 Subcutaneo unit/mL us route 3 subcutaneou times per s day on a sliding scale three times a day before meals ipratropium 2019- No inhale 3 A [facility]cess[facility] -albuterol 07-26 milliliter ea lth 0.5 mg-3 00:00: 00:00 s by mg(2.5 mg 00 :00 nebulizati base)/3 mL on route 4 nebulizatio times per n soln day and as needed, up to 6 doses per day Requip 0.5 2019- No take 2 [facility] mg tablet 07-26 tablets by eal th 00:00: 00:00 Oral route 00 :00 1 time per day 1-3 hours before bedtime for restless legs amlodipine 2019- No take 1 [facility] 5 mg tablet 07-26 tablet (5 ea lth 00:00: 00:00 mg) by 00 :00 oral route once daily atorvastati 2019- No take 1 [facility] n 80 mg 07-26 tablet by [facility] tablet 00:00: 00:00 Oral route 00 :00 1 time per day bumetanide 2019- No take 1 [facility] 1 mg tablet 07-26 tablet (1 ea lth 00:00: 00:00 mg) by 00 :00 oral route 2 times per day isosorbide 2019- No take 1 [facility] mononitrate 07-26 tablet (60 e alth ER 60 mg 00:00: 00:00 mg) by tablet,exte 00 :00 oral route nded once daily release 24 in the hr morning Levemir 2019- No inject 34 [facility] FlexTouch 07-26 Units by [facility] U-100 00:00: 00:00 Subcutaneo Insulin 100 00 :00 us route 2 unit/mL (3 times per mL) day in the subcutaneou morning s pen and evening lisinopril 2019- No take 1 [facility] 40 mg 07-26 tablet (40 ealth tablet 00:00: 00:00 mg) by 00 :00 oral route once daily metolazone 2019- No take 1 [facility] 5 mg tablet 07-26 tablet (5 ea lth 00:00: 00:00 mg) by 00 :00 oral route once daily ProAir HFA 2019- No inhale 2 [facility] 90 07-26 puffs (180 ealth mcg/actuati 00:00: 00:00 mcg) by on aerosol 00 :00 inhalation inhaler route every 4 hours as needed carvedilol No take 1 [facility] 25 mg 07-26 tablet (25 ealth tablet 00:00: 00:00 mg) by 00 :00 oral route 2 times per day with food clopidogrel take 1 [facility] 75 mg 07-26 tablet (75 ealth tablet 00:00: 00:00 mg) by 00 :00 oral route once daily Humalog inject [facility] KwikPen 07-26 5-10 Units ealth (U-100) 00:00: 00:00 by Insulin 100 00 :00 Subcutaneo unit/mL us route 3 subcutaneou times per s day on a sliding scale three times a day before meals ipratropium 2019- No inhale 3 A ccess[facility] -albuterol 07-26 milliliter ea lth 0.5 mg-3 00:00: 00:00 s by mg(2.5 mg 00 :00 nebulizati base)/3 mL on route 4 nebulizatio times per n soln day and as needed, up to 6 doses per day Requip 0.5 No take 2 [facility] mg tablet 07-26 tablets by eal th 00:00: 00:00 Oral route 00 :00 1 time per day 1-3 hours before bedtime for restless legs amlodipine No take 1 [facility] 5 mg tablet 07-26 tablet (5 ea lth 00:00: 00:00 mg) by 00 :00 oral route once daily atorvastati 2019- No take 1 [facility] n 80 mg 07-26 tablet by [facility] tablet 00:00: 00:00 Oral route 00 :00 1 time per day bumetanide 2019- No take 1 [facility] 1 mg tablet 07-26 tablet (1 ea lth 00:00: 00:00 mg) by 00 :00 oral route 2 times per day isosorbide 2019- No take 1 [facility] mononitrate 07-26 tablet (60 e alth ER 60 mg 00:00: 00:00 mg) by tablet,exte 00 :00 oral route nded once daily release 24 in the hr morning Levemir 2019- inject 34 [facility] FlexTouch 07-26 Units by ealth U-100 00:00: 00:00 Subcutaneo Insulin 100 00 :00 us route 2 unit/mL (3 times per mL) day in the subcutaneou morning s pen and evening lisinopril 2019- No take 1 [facility] 40 mg 07-26 tablet (40 ealth tablet 00:00: 00:00 mg) by 00 :00 oral route once daily metolazone 2019- take 1 [facility] 5 mg tablet 07-26 tablet (5 ea lth 00:00: 00:00 mg) by 00 :00 oral route once daily ProAir HFA 2019- No inhale 2 [facility] 90 07-26 puffs (180 ealth mcg/actuati 00:00: 00:00 mcg) by on aerosol 00 :00 inhalation inhaler route every 4 hours as needed carvedilol take 1 [facility] 25 mg 07-26 tablet (25 ealth tablet 00:00: 00:00 mg) by 00 :00 oral route 2 times per day with food clopidogrel 2019- take 1 [facility] 75 mg 07-26 tablet (75 ealth tablet 00:00: 00:00 mg) by 00 :00 oral route once daily Humalog 2019- inject [facility] KwikPen 07-26 5-10 Units ealth (U-100) 00:00: 00:00 by Insulin 100 00 :00 Subcutaneo unit/mL us route 3 subcutaneou times per s day on a sliding scale three times a day before meals ipratropium 2019- No inhale 3 A ccessH -albuterol 07-26 milliliter ea lth 0.5 mg-3 00:00: 00:00 s by mg(2.5 mg 00 :00 nebulizati base)/3 mL on route 4 nebulizatio times per n soln day and as needed, up to 6 doses per day Requip 0.5 2019- No take 2 [facility] mg tablet 07-26 tablets by eal th 00:00: 00:00 Oral route 00 :00 1 time per day 1-3 hours before bedtime for restless legs amlodipine 2019- No take 1 [facility] 5 mg tablet 07-26 tablet (5 ea lth 00:00: 00:00 mg) by 00 :00 oral route once daily atorvastati 2019- No take 1 [facility] n 80 mg 07-26 tablet by [facility] tablet 00:00: 00:00 Oral route 00 :00 1 time per day bumetanide 2019- No take 1 [facility] 1 mg tablet 07-26 tablet (1 ea lth 00:00: 00:00 mg) by 00 :00 oral route 2 times per day isosorbide 2019- No take 1 [facility] mononitrate 07-26 tablet (60 e alth ER 60 mg 00:00: 00:00 mg) by tablet,exte 00 :00 oral route nded once daily release 24 in the hr morning Levemir 2019- No inject 34 [facility] FlexTouch 07-26 Units by [facility]alt U-100 00:00: 00:00 Subcutaneo Insulin 100 00 :00 us route 2 unit/mL (3 times per mL) day in the subcutaneou morning s pen and evening lisinopril 2019- No take 1 [facility] 40 mg 07-26 tablet (40 ealt tablet 00:00: 00:00 mg) by 00 :00 oral route once daily metolazone 2019- No take 1 [facility] 5 mg tablet 07-26 tablet (5 ea lth 00:00: 00:00 mg) by 00 :00 oral route once daily ProAir HFA 2019- No inhale 2 [facility] 90 07-26 puffs (180 ealth mcg/actuati 00:00: 00:00 mcg) by on aerosol 00 :00 inhalation inhaler route every 4 hours as needed carvedilol take 1 [facility] 25 mg 07-26 tablet (25 ealth tablet 00:00: 00:00 mg) by 00 :00 oral route 2 times per day with food clopidogrel take 1 [facility] 75 mg 07-26 tablet (75 ealth tablet 00:00: 00:00 mg) by 00 :00 oral route once daily Humalog inject Access[facility] KwikPen 07-26 5-10 Units ealth (U-100) 00:00: 00:00 by Insulin 100 00 :00 Subcutaneo unit/mL us route 3 subcutaneou times per s day on a sliding scale three times a day before meals ipratropium inhale 3 A ccessH -albuterol 07-26 milliliter ea lth 0.5 mg-3 00:00: 00:00 s by mg(2.5 mg 00 :00 nebulizati base)/3 mL on route 4 nebulizatio times per n soln day and as needed, up to 6 doses per day Requip 0.5 take 2 [facility] mg tablet 07-26 tablets by [facility] 00:00: 00:00 Oral route 00 :00 1 time per day 1-3 hours before bedtime for restless legs Requip 0.5 take 2 [facility] mg tablet 07-26 tablets by [facility] 00:00: 00:00 Oral route 00 :00 1 time per day 1-3 hours before bedtime for restless legs ipratropium inhale 3 A ccessH -albuterol 07-26 milliliter ea lth 0.5 mg-3 00:00: 00:00 s by mg(2.5 mg 00 :00 nebulizati base)/3 mL on route 4 nebulizatio times per n soln day and as needed, up to 6 doses per day Humalog 2019-0 2020- No inject [facility] KwikPen 07-26 5-10 Units ealth (U-100) 00:00: 00:00 by Insulin 100 00 :00 Subcutaneo unit/mL us route 3 subcutaneou times per s day on a sliding scale three times a day before meals clopidogrel 2019- No take 1 [facility] 75 mg 07-26 tablet (75 [facility] tablet 00:00: 00:00 mg) by 00 :00 oral route once daily carvedilol 2019- No take 1 [facility] 25 mg 07-26 tablet (25 [facility] tablet 00:00: 00:00 mg) by 00 :00 oral route 2 times per day with food ProAir HFA 2019- inhale 2 Ac [facility] 90 07-26 puffs (180 ealth mcg/actuati 00:00: 00:00 mcg) by on aerosol 00 :00 inhalation inhaler route every 4 hours as needed metolazone 2019- No take 1 [facility] 5 mg tablet 07-26 tablet (5 ea lth 00:00: 00:00 mg) by 00 :00 oral route once daily lisinopril 2019- No take 1 [facility] 40 mg 07-26 tablet (40 [facility] tablet 00:00: 00:00 mg) by 00 :00 oral route once daily Levemir 2019- No inject 34 [facility] FlexTouch 07-26 Units by [facility] U-100 00:00: 00:00 Subcutaneo Insulin 100 00 :00 us route 2 unit/mL (3 times per mL) day in the subcutaneou morning s pen and evening isosorbide 2019- No take 1 [facility] mononitrate 07-26 tablet (60 e alth ER 60 mg 00:00: 00:00 mg) by tablet,exte 00 :00 oral route nded once daily release 24 in the hr morning bumetanide 2019- No take 1 [facility] 1 mg tablet 07-26 tablet (1 ea lth 00:00: 00:00 mg) by 00 :00 oral route 2 times per day atorvastati take 1 [facility] n 80 mg 07-26 tablet by ealth tablet 00:00: 00:00 Oral route 00 :00 1 time per day amlodipine No take 1 [facility] 5 mg tablet 07-26 tablet (5 ea lth 00:00: 00:00 mg) by 00 :00 oral route once daily amlodipine No take 1 [facility] 5 mg tablet 07-26 tablet (5 ea lth 00:00: 00:00 mg) by 00 :00 oral route once daily atorvastati take 1 [facility] n 80 mg 07-26 tablet by ealth tablet 00:00: 00:00 Oral route 00 :00 1 time per day bumetanide take 1 [facility] 1 mg tablet 07-26 tablet (1 ea lth 00:00: 00:00 mg) by 00 :00 oral route 2 times per day isosorbide take 1 [facility] mononitrate 07-26 tablet (60 e alth ER 60 mg 00:00: 00:00 mg) by tablet,exte 00 :00 oral route nded once daily release 24 in the hr morning Levemir inject 34 [facility] FlexTouch 07-26 Units by ealth U-100 00:00: 00:00 Subcutaneo Insulin 100 00 :00 us route 2 unit/mL (3 times per mL) day in the subcutaneou morning s pen and evening lisinopril take 1 [facility] 40 mg 07-26 tablet (40 ealth tablet 00:00: 00:00 mg) by 00 :00 oral route once daily metolazone take 1 [facility] 5 mg tablet 07-26 tablet (5 ea lth 00:00: 00:00 mg) by 00 :00 oral route once daily ProAir HFA inhale 2 [facility] 90 07-26 puffs (180 ealth mcg/actuati 00:00: 00:00 mcg) by on aerosol 00 :00 inhalation inhaler route every 4 hours as needed carvedilol 2019- No take 1 [facility] 25 mg 07-26 tablet (25 ealth tablet 00:00: 00:00 mg) by 00 :00 oral route 2 times per day with food clopidogrel 2019- No take 1 [facility] 75 mg 07-26 tablet (75 ealth tablet 00:00: 00:00 mg) by 00 :00 oral route once daily Humalog 2019- inject [facility] KwikPen 07-26 5-10 Units ealth (U-100) 00:00: 00:00 by Insulin 100 00 :00 Subcutaneo unit/mL us route 3 subcutaneou times per s day on a sliding scale three times a day before meals ipratropium 2019- No inhale 3 [facility] -albuterol 07-26 milliliter ea lth 0.5 mg-3 00:00: 00:00 s by mg(2.5 mg 00 :00 nebulizati base)/3 mL on route 4 nebulizatio times per n soln day and as needed, up to 6 doses per day Requip 0.5 2019- No take 2 [facility] mg tablet 07-26 tablets by eal th 00:00: 00:00 Oral route 00 :00 1 time per day 1-3 hours before bedtime for restless legs amlodipine 2019- No take 1 [facility] 5 mg tablet 07-26 tablet (5 ea lth 00:00: 00:00 mg) by 00 :00 oral route once daily atorvastati 2019- No take 1 [facility] n 80 mg 07-26 tablet by ealth tablet 00:00: 00:00 Oral route 00 :00 1 time per day bumetanide 2019- No take 1 [facility] 1 mg tablet 07-26 tablet (1 ea lth 00:00: 00:00 mg) by 00 :00 oral route 2 times per day isosorbide 2019- No take 1 [facility] mononitrate 07-26 tablet (60 e alth ER 60 mg 00:00: 00:00 mg) by tablet,exte 00 :00 oral route nded once daily release 24 in the hr morning Levemir 2019- No inject 34 [facility] FlexTouch 07-26 Units by ealth U-100 00:00: 00:00 Subcutaneo Insulin 100 00 :00 us route 2 unit/mL (3 times per mL) day in the subcutaneou morning s pen and evening lisinopril 2019- No take 1 [facility] 40 mg 07-26 tablet (40 ealth tablet 00:00: 00:00 mg) by 00 :00 oral route once daily metolazone take 1 [facility] 5 mg tablet 07-26 tablet (5 ea lth 00:00: 00:00 mg) by 00 :00 oral route once daily ProAir HFA 2019- No inhale 2 [facility] 90 07-26 puffs (180 ealth mcg/actuati 00:00: 00:00 mcg) by on aerosol 00 :00 inhalation inhaler route every 4 hours as needed carvedilol 2019- No take 1 [facility] 25 mg 07-26 tablet (25 ealth tablet 00:00: 00:00 mg) by 00 :00 oral route 2 times per day with food clopidogrel 2019- No take 1 [facility] 75 mg 07-26 tablet (75 ealth tablet 00:00: 00:00 mg) by 00 :00 oral route once daily Humalog 2019- No inject [facility] KwikPen 07-26 5-10 Units ealth (U-100) 00:00: 00:00 by Insulin 100 00 :00 Subcutaneo unit/mL us route 3 subcutaneou times per s day on a sliding scale three times a day before meals ipratropium 2019- No inhale 3 A [facility] -albuterol 07-26 milliliter ea lth 0.5 mg-3 00:00: 00:00 s by mg(2.5 mg 00 :00 nebulizati base)/3 mL on route 4 nebulizatio times per n soln day and as needed, up to 6 doses per day Requip 0.5 2019- No take 2 [facility] mg tablet 07-26 tablets by eal th 00:00: 00:00 Oral route 00 :00 1 time per day 1-3 hours before bedtime for restless legs amlodipine 2019- No take 1 [facility] 5 mg tablet 07-26 tablet (5 ea lth 00:00: 00:00 mg) by 00 :00 oral route once daily atorvastati 2019- No take 1 [facility] n 80 mg 07-26 tablet by ealth tablet 00:00: 00:00 Oral route 00 :00 1 time per day bumetanide 2019- No take 1 [facility] 1 mg tablet 07-26 tablet (1 ea lth 00:00: 00:00 mg) by 00 :00 oral route 2 times per day isosorbide 2019- No take 1 [facility] mononitrate 07-26 tablet (60 e alth ER 60 mg 00:00: 00:00 mg) by tablet,exte 00 :00 oral route nded once daily release 24 in the hr morning Levemir 2019- No inject 34 [facility] FlexTouch 07-26 Units by ealth U-100 00:00: 00:00 Subcutaneo Insulin 100 00 :00 us route 2 unit/mL (3 times per mL) day in the subcutaneou morning s pen and evening lisinopril 2019- No take 1 [facility] 40 mg 07-26 tablet (40 ealth tablet 00:00: 00:00 mg) by 00 :00 oral route once daily metolazone 2019- No take 1 [facility] 5 mg tablet 07-26 tablet (5 ea lth 00:00: 00:00 mg) by 00 :00 oral route once daily ProAir HFA 2019- No inhale 2 [facility] 90 07-26 puffs (180 ealth mcg/actuati 00:00: 00:00 mcg) by on aerosol 00 :00 inhalation inhaler route every 4 hours as needed carvedilol 2019- take 1 [facility] 25 mg 07-26 tablet (25 ealth tablet 00:00: 00:00 mg) by 00 :00 oral route 2 times per day with food clopidogrel take 1 [facility] 75 mg 07-26 tablet (75 ealth tablet 00:00: 00:00 mg) by 00 :00 oral route once daily Humalog inject [facility] KwikPen 07-26 5-10 Units ealth (U-100) 00:00: 00:00 by Insulin 100 00 :00 Subcutaneo unit/mL us route 3 subcutaneou times per s day on a sliding scale three times a day before meals ipratropium inhale 3 [facility] -albuterol 07-26 milliliter ea lth 0.5 mg-3 00:00: 00:00 s by mg(2.5 mg 00 :00 nebulizati base)/3 mL on route 4 nebulizatio times per n soln day and as needed, up to 6 doses per day Requip 0.5 take 2 [facility] mg tablet 07-26 tablets by eal th 00:00: 00:00 Oral route 00 :00 1 time per day 1-3 hours before bedtime for restless legs amlodipine 2019- No take 1 [facility] 5 mg tablet 07-26 tablet (5 ea lth 00:00: 00:00 mg) by 00 :00 oral route once daily atorvastati 2019- No take 1 [facility] n 80 mg 07-26 tablet by ealth tablet 00:00: 00:00 Oral route 00 :00 1 time per day bumetanide take 1 [facility] 1 mg tablet 07-26 tablet (1 ea lth 00:00: 00:00 mg) by 00 :00 oral route 2 times per day isosorbide 2019- No take 1 [facility] mononitrate 07-26 tablet (60 e alth ER 60 mg 00:00: 00:00 mg) by tablet,exte 00 :00 oral route nded once daily release 24 in the hr morning Levemir 2019- No inject 34 [facility] FlexTouch 07-26 Units by ealth U-100 00:00: 00:00 Subcutaneo Insulin 100 00 :00 us route 2 unit/mL (3 times per mL) day in the subcutaneou morning s pen and evening lisinopril 2019- No take 1 [facility] 40 mg 07-26 tablet (40 ealth tablet 00:00: 00:00 mg) by 00 :00 oral route once daily metolazone No take 1 [facility] 5 mg tablet 07-26 tablet (5 ea lth 00:00: 00:00 mg) by 00 :00 oral route once daily ProAir HFA 2019- No inhale 2 [facility] 90 07-26 puffs (180 ealth mcg/actuati 00:00: 00:00 mcg) by on aerosol 00 :00 inhalation inhaler route every 4 hours as needed carvedilol 2019- No take 1 [facility] 25 mg 07-26 tablet (25 ealth tablet 00:00: 00:00 mg) by 00 :00 oral route 2 times per day with food clopidogrel 2019- take 1 [facility] 75 mg 07-26 tablet (75 ealth tablet 00:00: 00:00 mg) by 00 :00 oral route once daily amlodipine take 1 [facility] 5 mg tablet 07-26 tablet (5 ea lth 00:00: 00:00 mg) by 00 :00 oral route once daily atorvastati 2019- No take 1 [facility] n 80 mg 07-26 tablet by ealth tablet 00:00: 00:00 Oral route 00 :00 1 time per day bumetanide 2019- No take 1 [facility] 1 mg tablet 07-26 tablet (1 ea lth 00:00: 00:00 mg) by 00 :00 oral route 2 times per day isosorbide 2019- No take 1 [facility] mononitrate 07-26 tablet (60 e alth ER 60 mg 00:00: 00:00 mg) by tablet,exte 00 :00 oral route nded once daily release 24 in the hr morning Humalog inject [facility] KwikPen 07-26 5-10 Units ealth (U-100) 00:00: 00:00 by Insulin 100 00 :00 Subcutaneo unit/mL us route 3 subcutaneou times per s day on a sliding scale three times a day before meals Levemir 2019- No inject 34 [facility] FlexTouch 07-26 Units by ealth U-100 00:00: 00:00 Subcutaneo Insulin 100 00 :00 us route 2 unit/mL (3 times per mL) day in the subcutaneou morning s pen and evening lisinopril 2019- take 1 [facility] 40 mg 07-26 tablet (40 ealth tablet 00:00: 00:00 mg) by 00 :00 oral route once daily Requip 0.5 2019- take 2 [facility] mg tablet 07-26 tablets by eal th 00:00: 00:00 Oral route 00 :00 1 time per day 1-3 hours before bedtime for restless legs ipratropium 2019- No inhale 3 [facility] -albuterol 07-26 milliliter ea lth 0.5 mg-3 00:00: 00:00 s by mg(2.5 mg 00 :00 nebulizati base)/3 mL on route 4 nebulizatio times per n soln day and as needed, up to 6 doses per day Humalog inject [facility] KwikPen 07-26 5-10 Units ealth (U-100) 00:00: 00:00 by Insulin 100 00 :00 Subcutaneo unit/mL us route 3 subcutaneou times per s day on a sliding scale three times a day before meals clopidogrel 2019- No take 1 [facility] 75 mg 07-26 tablet (75 ealth tablet 00:00: 00:00 mg) by 00 :00 oral route once daily carvedilol 2019- No take 1 [facility] 25 mg 07-26 tablet (25 ealth tablet 00:00: 00:00 mg) by 00 :00 oral route 2 times per day with food ProAir HFA inhale 2 [facility] 90 07-26 puffs (180 ealth mcg/actuati 00:00: 00:00 mcg) by on aerosol 00 :00 inhalation inhaler route every 4 hours as needed metolazone take 1 [facility] 5 mg tablet 07-26 tablet (5 ea lth 00:00: 00:00 mg) by 00 :00 oral route once daily ipratropium inhale 3 [facility] -albuterol 07-26 milliliter ea lth 0.5 mg-3 00:00: 00:00 s by mg(2.5 mg 00 :00 nebulizati base)/3 mL on route 4 nebulizatio times per n soln day and as needed, up to 6 doses per day Requip 0.5 take 2 [facility] mg tablet 07-26 tablets by eal th 00:00: 00:00 Oral route 00 :00 1 time per day 1-3 hours before bedtime for restless legs amlodipine 2019- No take 1 [facility] 5 mg tablet 07-26 tablet (5 ea lth 00:00: 00:00 mg) by 00 :00 oral route once daily atorvastati take 1 [facility] n 80 mg 07-26 tablet by ealth tablet 00:00: 00:00 Oral route 00 :00 1 time per day bumetanide No take 1 [facility] 1 mg tablet 07-26 tablet (1 ea lth 00:00: 00:00 mg) by 00 :00 oral route 2 times per day isosorbide No take 1 [facility] mononitrate 07-26 tablet (60 e alth ER 60 mg 00:00: 00:00 mg) by tablet,exte 00 :00 oral route nded once daily release 24 in the hr morning Levemir 2019- No inject 34 [facility] FlexTouch 07-26 Units by ealth U-100 00:00: 00:00 Subcutaneo Insulin 100 00 :00 us route 2 unit/mL (3 times per mL) day in the subcutaneou morning s pen and evening lisinopril 2019- No take 1 [facility] 40 mg 07-26 tablet (40 ealth tablet 00:00: 00:00 mg) by 00 :00 oral route once daily metolazone 2019- No take 1 [facility] 5 mg tablet 07-26 tablet (5 ea lth 00:00: 00:00 mg) by 00 :00 oral route once daily ProAir HFA 2019- No inhale 2 [facility] 90 07-26 puffs (180 ealth mcg/actuati 00:00: 00:00 mcg) by on aerosol 00 :00 inhalation inhaler route every 4 hours as needed carvedilol take 1 [facility] 25 mg 07-26 tablet (25 ealth tablet 00:00: 00:00 mg) by 00 :00 oral route 2 times per day with food clopidogrel take 1 [facility] 75 mg 07-26 tablet (75 ealth tablet 00:00: 00:00 mg) by 00 :00 oral route once daily Humalog inject [facility] KwikPen 07-26 5-10 Units ealth (U-100) 00:00: 00:00 by Insulin 100 00 :00 Subcutaneo unit/mL us route 3 subcutaneou times per s day on a sliding scale three times a day before meals ipratropium 2019- No inhale 3 [facility] -albuterol 07-26 milliliter ea lth 0.5 mg-3 00:00: 00:00 s by mg(2.5 mg 00 :00 nebulizati base)/3 mL on route 4 nebulizatio times per n soln day and as needed, up to 6 doses per day Requip 0.5 2019- No take 2 [facility] mg tablet 07-26 tablets by eal th 00:00: 00:00 Oral route 00 :00 1 time per day 1-3 hours before bedtime for restless legs amlodipine 2019- No take 1 [facility] 5 mg tablet 07-26 tablet (5 ea lth 00:00: 00:00 mg) by 00 :00 oral route once daily atorvastati 2019- No take 1 [facility] n 80 mg 07-26 tablet by ealth tablet 00:00: 00:00 Oral route 00 :00 1 time per day bumetanide 2019- No take 1 [facility] 1 mg tablet 07-26 tablet (1 ea lth 00:00: 00:00 mg) by 00 :00 oral route 2 times per day isosorbide 2019- No take 1 [facility] mononitrate 07-26 tablet (60 e alth ER 60 mg 00:00: 00:00 mg) by tablet,exte 00 :00 oral route nded once daily release 24 in the hr morning Levemir 2019- No inject 34 [facility] FlexTouch 07-26 Units by ealth U-100 00:00: 00:00 Subcutaneo Insulin 100 00 :00 us route 2 unit/mL (3 times per mL) day in the subcutaneou morning s pen and evening lisinopril 2019- No take 1 [facility] 40 mg 07-26 tablet (40 ealth tablet 00:00: 00:00 mg) by 00 :00 oral route once daily metolazone 2019- No take 1 [facility] 5 mg tablet 07-26 tablet (5 ea lth 00:00: 00:00 mg) by 00 :00 oral route once daily ProAir HFA 2019- No inhale 2 [facility] 90 07-26 puffs (180 ealth mcg/actuati 00:00: 00:00 mcg) by on aerosol 00 :00 inhalation inhaler route every 4 hours as needed carvedilol 2019- No take 1 [facility] 25 mg 07-26 tablet (25 ealth tablet 00:00: 00:00 mg) by 00 :00 oral route 2 times per day with food clopidogrel take 1 [facility] 75 mg 07-26 tablet (75 ealth tablet 00:00: 00:00 mg) by 00 :00 oral route once daily Humalog inject [facility] KwikPen 07-26 5-10 Units ealth (U-100) 00:00: 00:00 by Insulin 100 00 :00 Subcutaneo unit/mL us route 3 subcutaneou times per s day on a sliding scale three times a day before meals ipratropium No inhale 3 [facility]cess[facility] -albuterol 07-26 milliliter ea lth 0.5 mg-3 00:00: 00:00 s by mg(2.5 mg 00 :00 nebulizati base)/3 mL on route 4 nebulizatio times per n soln day and as needed, up to 6 doses per day Requip 0.5 take 2 [facility] mg tablet 07-26 tablets by eal th 00:00: 00:00 Oral route 00 :00 1 time per day 1-3 hours before bedtime for restless legs amlodipine No take 1 [facility] 5 mg tablet 07-26 tablet (5 ea lth 00:00: 00:00 mg) by 00 :00 oral route once daily atorvastati 2019- No take 1 [facility] n 80 mg 07-26 tablet by ealth tablet 00:00: 00:00 Oral route 00 :00 1 time per day bumetanide 2019- No take 1 [facility] 1 mg tablet 07-26 tablet (1 ea lth 00:00: 00:00 mg) by 00 :00 oral route 2 times per day isosorbide 2019- No take 1 [facility] mononitrate 07-26 tablet (60 e alth ER 60 mg 00:00: 00:00 mg) by tablet,exte 00 :00 oral route nded once daily release 24 in the hr morning Levemir 2019-0 2020- No inject 34 [facility] FlexTouch 07-26 Units by ealth U-100 00:00: 00:00 Subcutaneo Insulin 100 00 :00 us route 2 unit/mL (3 times per mL) day in the subcutaneou morning s pen and evening lisinopril 2019- take 1 [facility] 40 mg 07-26 tablet (40 ealth tablet 00:00: 00:00 mg) by 00 :00 oral route once daily metolazone 2019- No take 1 [facility] 5 mg tablet 07-26 tablet (5 ea lth 00:00: 00:00 mg) by 00 :00 oral route once daily ProAir HFA 2019- No inhale 2 [facility] 90 07-26 puffs (180 ealth mcg/actuati 00:00: 00:00 mcg) by on aerosol 00 :00 inhalation inhaler route every 4 hours as needed carvedilol 2019- take 1 [facility] 25 mg 07-26 tablet (25 ealth tablet 00:00: 00:00 mg) by 00 :00 oral route 2 times per day with food clopidogrel 2019- No take 1 [facility] 75 mg 07-26 tablet (75 ealth tablet 00:00: 00:00 mg) by 00 :00 oral route once daily Humalog inject [facility] KwikPen 07-26 5-10 Units ealth (U-100) 00:00: 00:00 by Insulin 100 00 :00 Subcutaneo unit/mL us route 3 subcutaneou times per s day on a sliding scale three times a day before meals ipratropium 2019- No inhale 3 [facility]cess[facility] -albuterol 07-26 milliliter ea lth 0.5 mg-3 00:00: 00:00 s by mg(2.5 mg 00 :00 nebulizati base)/3 mL on route 4 nebulizatio times per n soln day and as needed, up to 6 doses per day Requip 0.5 2019- No take 2 [facility] mg tablet 07-26 tablets by eal th 00:00: 00:00 Oral route 00 :00 1 time per day 1-3 hours before bedtime for restless legs amlodipine 2019- No take 1 [facility] 5 mg tablet 07-26 tablet (5 ea lth 00:00: 00:00 mg) by 00 :00 oral route once daily atorvastati 2019- No take 1 [facility] n 80 mg 07-26 tablet by ealt tablet 00:00: 00:00 Oral route 00 :00 1 time per day bumetanide 2019- No take 1 [facility] 1 mg tablet 07-26 tablet (1 ea lth 00:00: 00:00 mg) by 00 :00 oral route 2 times per day isosorbide 2019- No take 1 [facility] mononitrate 07-26 tablet (60 e alth ER 60 mg 00:00: 00:00 mg) by tablet,exte 00 :00 oral route nded once daily release 24 in the hr morning Levemir 2019- No inject 34 [facility] FlexTouch 07-26 Units by ealth U-100 00:00: 00:00 Subcutaneo Insulin 100 00 :00 us route 2 unit/mL (3 times per mL) day in the subcutaneou morning s pen and evening lisinopril 2019- No take 1 [facility] 40 mg 07-26 tablet (40 ealth tablet 00:00: 00:00 mg) by 00 :00 oral route once daily metolazone 2019- No take 1 [facility] 5 mg tablet 07-26 tablet (5 ea lth 00:00: 00:00 mg) by 00 :00 oral route once daily ProAir HFA 2019- No inhale 2 [facility] 90 07-26 puffs (180 ealth mcg/actuati 00:00: 00:00 mcg) by on aerosol 00 :00 inhalation inhaler route every 4 hours as needed carvedilol 2019- No take 1 [facility] 25 mg 07-26 tablet (25 ealth tablet 00:00: 00:00 mg) by 00 :00 oral route 2 times per day with food clopidogrel 2019- take 1 [facility] 75 mg 07-26 tablet (75 ealth tablet 00:00: 00:00 mg) by 00 :00 oral route once daily Humalog 2019- inject [facility] KwikPen 07-26 5-10 Units ealth (U-100) 00:00: 00:00 by Insulin 100 00 :00 Subcutaneo unit/mL us route 3 subcutaneou times per s day on a sliding scale three times a day before meals ipratropium 2019- No inhale 3 A [facility]cess[facility] -albuterol 07-26 milliliter ea lth 0.5 mg-3 00:00: 00:00 s by mg(2.5 mg 00 :00 nebulizati base)/3 mL on route 4 nebulizatio times per n soln day and as needed, up to 6 doses per day Requip 0.5 2019- No take 2 [facility] mg tablet 07-26 tablets by eal th 00:00: 00:00 Oral route 00 :00 1 time per day 1-3 hours before bedtime for restless legs amlodipine 2019- No take 1 [facility] 5 mg tablet 07-26 tablet (5 ea lth 00:00: 00:00 mg) by 00 :00 oral route once daily atorvastati 2019- No take 1 [facility] n 80 mg 07-26 tablet by ealt tablet 00:00: 00:00 Oral route 00 :00 1 time per day bumetanide 2019- No take 1 [facility] 1 mg tablet 07-26 tablet (1 ea lth 00:00: 00:00 mg) by 00 :00 oral route 2 times per day isosorbide 2019- No take 1 [facility] mononitrate 07-26 tablet (60 e alth ER 60 mg 00:00: 00:00 mg) by tablet,exte 00 :00 oral route nded once daily release 24 in the hr morning Levemir 2019- No inject 34 [facility] FlexTouch 07-26 Units by ealth U-100 00:00: 00:00 Subcutaneo Insulin 100 00 :00 us route 2 unit/mL (3 times per mL) day in the subcutaneou morning s pen and evening lisinopril 2019- take 1 [facility] 40 mg 07-26 tablet (40 ealth tablet 00:00: 00:00 mg) by 00 :00 oral route once daily metolazone 2019- No take 1 [facility] 5 mg tablet 07-26 tablet (5 ea lth 00:00: 00:00 mg) by 00 :00 oral route once daily ProAir HFA 2019- No inhale 2 [facility] 90 07-26 puffs (180 ealth mcg/actuati 00:00: 00:00 mcg) by on aerosol 00 :00 inhalation inhaler route every 4 hours as needed carvedilol 2019- No take 1 [facility] 25 mg 07-26 tablet (25 ealth tablet 00:00: 00:00 mg) by 00 :00 oral route 2 times per day with food clopidogrel 2019- No take 1 [facility] 75 mg 07-26 tablet (75 ealth tablet 00:00: 00:00 mg) by 00 :00 oral route once daily Humalog inject [facility] KwikPen 07-26 5-10 Units ealth (U-100) 00:00: 00:00 by Insulin 100 00 :00 Subcutaneo unit/mL us route 3 subcutaneou times per s day on a sliding scale three times a day before meals ipratropium 2019- No inhale 3 A ccess[facility] -albuterol 07-26 milliliter ea lth 0.5 mg-3 00:00: 00:00 s by mg(2.5 mg 00 :00 nebulizati base)/3 mL on route 4 nebulizatio times per n soln day and as needed, up to 6 doses per day Requip 0.5 2019- No take 2 [facility] mg tablet 07-26 tablets by eal th 00:00: 00:00 Oral route 00 :00 1 time per day 1-3 hours before bedtime for restless legs amlodipine 2019- No take 1 [facility] 5 mg tablet 07-26 tablet (5 ea lth 00:00: 00:00 mg) by 00 :00 oral route once daily atorvastati 2019- No take 1 [facility] n 80 mg 07-26 tablet by ealth tablet 00:00: 00:00 Oral route 00 :00 1 time per day bumetanide 2019- No take 1 [facility] 1 mg tablet 07-26 tablet (1 ea lth 00:00: 00:00 mg) by 00 :00 oral route 2 times per day isosorbide 2019- No take 1 [facility] mononitrate 07-26 tablet (60 e alth ER 60 mg 00:00: 00:00 mg) by tablet,exte 00 :00 oral route nded once daily release 24 in the hr morning Levemir 2019- No inject 34 [facility] FlexTouch 07-26 Units by ealth U-100 00:00: 00:00 Subcutaneo Insulin 100 00 :00 us route 2 unit/mL (3 times per mL) day in the subcutaneou morning s pen and evening lisinopril 2019- No take 1 [facility] 40 mg 07-26 tablet (40 ealth tablet 00:00: 00:00 mg) by 00 :00 oral route once daily metolazone 2019- No take 1 [facility] 5 mg tablet 07-26 tablet (5 ea lth 00:00: 00:00 mg) by 00 :00 oral route once daily ProAir HFA 2019- No inhale 2 [facility] 90 07-26 puffs (180 ealth mcg/actuati 00:00: 00:00 mcg) by on aerosol 00 :00 inhalation inhaler route every 4 hours as needed carvedilol 2019- No take 1 [facility] 25 mg 07-26 tablet (25 ealth tablet 00:00: 00:00 mg) by 00 :00 oral route 2 times per day with food clopidogrel No take 1 [facility] 75 mg 07-26 tablet (75 ealth tablet 00:00: 00:00 mg) by 00 :00 oral route once daily Humalog inject Access[facility] KwikPen 07-26 5-10 Units ealth (U-100) 00:00: 00:00 by Insulin 100 00 :00 Subcutaneo unit/mL us route 3 subcutaneou times per s day on a sliding scale three times a day before meals ipratropium 2019- No inhale 3 A ccess[facility] -albuterol 07-26 milliliter ea lth 0.5 mg-3 00:00: 00:00 s by mg(2.5 mg 00 :00 nebulizati base)/3 mL on route 4 nebulizatio times per n soln day and as needed, up to 6 doses per day Requip 0.5 No take 2 [facility] mg tablet 07-26 tablets by eal th 00:00: 00:00 Oral route 00 :00 1 time per day 1-3 hours before bedtime for restless legs metolazone No 1{table Q2D take 1 [facility] 2.5 mg t} tablet by ealth tablet oral route every 2 days metolazone No 1{table Q2D take 1 [facility] 2.5 mg t} tablet by ealth tablet oral route every 2 days potassium No 1{table Q1D take 1 [facility] chloride ER t} tablet by eal th 10 mEq oral route tablet,exte every day nded with food release potassium No 1{table Q1D take 1 [facility] chloride ER t} tablet by eal th 10 mEq oral route tablet,exte every day nded with food release potassium No 1{table Q1D take 1 [facility] chloride ER t} tablet by eal th 10 mEq oral route tablet,exte every day nded with food release potassium No 1{table Q1D take 1 [facility] chloride ER t} tablet by eal th 10 mEq oral route tablet,exte every day nded with food release potassium No 1{table Q1D take 1 [facility]es [facility] chloride ER t} tablet by eal th 10 mEq oral route tablet,exte every day nded with food release potassium No 1{table Q1D take 1 [facility]es [facility] chloride ER t} tablet by eal th 10 mEq oral route tablet,exte every day nded with food release potassium No 1{table Q1D take 1 [facility] chloride ER t} tablet by eal th 10 mEq oral route tablet,exte every day nded with food release potassium No 1{table Q1D take 1 [facility] chloride ER t} tablet by eal th 10 mEq oral route tablet,exte every day nded with food release potassium No 1{table Q1D take 1 [facility] chloride ER t} tablet by eal th 10 mEq oral route tablet,exte every day nded with food release potassium No 1{table Q1D take 1 [facility]es [facility] chloride ER t} tablet by eal th 10 mEq oral route tablet,exte every day nded with food release potassium No 1{table Q1D take 1 [facility] chloride ER t} tablet by eal th 10 mEq oral route tablet,exte every day nded with food release potassium No 1{table Q1D take 1 [facility] chloride ER t} tablet by eal th 10 mEq oral route tablet,exte every day nded with food release potassium No 1{table Q1D take 1 [facility] chloride ER t} tablet by eal th 10 mEq oral route tablet,exte every day nded with food release potassium No 1{table Q1D take 1 [facility] chloride ER t} tablet by eal th 10 mEq oral route tablet,exte every day nded with food release potassium No 1{table Q1D take 1 [facility] chloride ER t} tablet by eal th 10 mEq oral route tablet,exte every day nded with food release potassium No 1{table Q1D take 1 [facility] chloride ER t} tablet by eal th 10 mEq oral route tablet,exte every day nded with food release potassium No 1{table Q1D take 1 [facility] chloride ER t} tablet by eal th 10 mEq oral route tablet,exte every day nded with food release potassium No 1{table Q1D take 1 [facility] chloride ER t} tablet by eal th 10 mEq oral route tablet,exte every day nded with food release potassium No 1{table Q1D take 1 [facility] chloride ER t} tablet by eal th 10 mEq oral route tablet,exte every day nded with food release potassium No 1{table Q1D take 1 [facility] chloride ER t} tablet by eal th 10 mEq oral route tablet,exte every day nded with food release metolazone No 1{table Q2D take 1 [facility] 2.5 mg t} tablet by ealth tablet oral route every 2 days metolazone No 1{table Q2D take 1 [facility] 2.5 mg t} tablet by ealth tablet oral route every 2 days metolazone 1- No 1{table Q2D take 1 [facility] 2.5 mg 04-08 t} tablet by ealth tablet 00:00 oral route :00 every 2 days metolazone 2020- No 1{table Q2D take 1 [facility] 2.5 mg 04-08 t} tablet by ealth tablet 00:00 oral route :00 every 2 days metolazone 1- No 1{table Q2D take 1 [facility] 2.5 mg 04-08 t} tablet by ealth tablet 00:00 oral route :00 every 2 days metolazone 1- No 1{table Q2D take 1 [facility] 2.5 mg 04-08 t} tablet by ealth tablet 00:00 oral route :00 every 2 days metolazone 1- No 1{table Q2D take 1 [facility] 2.5 mg 04-08 t} tablet by ealth tablet 00:00 oral route :00 every 2 days metolazone 1- No 1{table Q2D take 1 [facility] 2.5 mg 04-08 t} tablet by ealth tablet 00:00 oral route :00 every 2 days metolazone 1- No 1{table Q2D take 1 [facility] 2.5 mg 04-08 t} tablet by ealth tablet 00:00 oral route :00 every 2 days metolazone 1- No 1{table Q2D take 1 [facility] 2.5 mg 04-08 t} tablet by ealth tablet 00:00 oral route :00 every 2 days metolazone 2021- No 1{table Q2D take 1 [facility] 2.5 mg 04-08 t} tablet by ealth tablet 00:00 oral route :00 every 2 days metolazone 202- No 1{table Q2D take 1 [facility] 2.5 mg 04-08 t} tablet by ealth tablet 00:00 oral route :00 every 2 days metolazone 2020- No 1{table Q2D take 1 [facility] 2.5 mg 04-08 t} tablet by ealth tablet 00:00 oral route :00 every 2 days metolazone 2020- No 1{table Q2D take 1 [facility] 2.5 mg 04-08 t} tablet by ealth tablet 00:00 oral route :00 every 2 days metolazone 2020- No 1{table Q2D take 1 [facility] 2.5 mg 04-08 t} tablet by ealth tablet 00:00 oral route :00 every 2 days metolazone 2020- No 1{table Q2D take 1 [facility] 2.5 mg 04-08 t} tablet by ealth tablet 00:00 oral route :00 every 2 days metolazone 2020- No 1{table Q2D take 1 [facility] 2.5 mg 04-08 t} tablet by ealth tablet 00:00 oral route :00 every 2 days metolazone 2020- No 1{table Q2D take 1 [facility] 2.5 mg 04-08 t} tablet by ealth tablet 00:00 oral route :00 every 2 days metolazone 1- No 1{table Q2D take 1 [facility] 2.5 mg 04-08 t} tablet by ealth tablet 00:00 oral route :00 every 2 days metolazone 2020- No 1{table Q2D take 1 [facility] 2.5 mg 04-08 t} tablet by ealth tablet 00:00 oral route :00 every 2 days metolazone 2020- No 1{table Q2D take 1 [facility] 2.5 mg 04-08 t} tablet by ealth tablet 00:00 oral route :00 every 2 days metolazone 2020- No 1{table Q2D take 1 [facility] 2.5 mg 04-08 t} tablet by ealth tablet 00:00 oral route :00 every 2 days Immunizations Ordered Filled Date Status Comments Source Immunization Name Immunization Name Flu (split) (3 Completed Note: [facility] yrs or older) 9 Administered Flu 00:00:00 vaccine without any complications. JIM[facility] 03/06/2020 ; Source: New Immunization Record Flu (split) (3 Completed Note: [facility] y[facility] or older) 9 Administered Flu 00:00:00 vaccine without any complications. JIM[facility] 03/06/2020 ; Source: New Immunization Record Flu (split) (3 Completed Note: [facility] y[facility] or older) 9 Administered Flu 00:00:00 vaccine without any complications. [facility] 03/06/2020 ; Source: New Immunization Record Flu (split) (3 Completed Note: [facility] y[facility] or older) 9 Administered Flu 00:00:00 vaccine without any complications. [facility] 03/06/2020 ; Source: New Immunization Record Flu (split) (3 Completed Note: [facility] y[facility] or older) 9 Administered Flu 00:00:00 vaccine without any complications. [facility] 03/06/2020 ; Source: New Immunization Record Flu (split) (3 Completed Note: [facility] y[facility] or older) 9 Administered Flu 00:00:00 vaccine without any complications. [facility] 03/06/2020 ; Source: New Immunization Record Flu (split) (3 Completed Note: [facility] y[facility] or older) 9 Administered Flu 00:00:00 vaccine without any complications. [facility] 03/06/2020 ; Source: New Immunization Record Flu (split) (3 Completed Note: [facility] y[facility] or older) 9 Administered Flu 00:00:00 vaccine without any complications. [facility] 03/06/2020 ; Source: New Immunization Record Flu (split) (3 Completed Note: [facility] y[facility] or older) 9 Administered Flu 00:00:00 vaccine without any complications. [facility] 03/06/2020 ; Source: New Immunization Record Flu (split) (3 Completed Note: [facility] yrs or older) 9 Administered Flu 00:00:00 vaccine without any complications. [facility] 03/06/2020 ; Source: New Immunization Record Flu (split) (3 Completed Note: [facility] yrs or older) 9 Administered Flu 00:00:00 vaccine without any complications. [facility] 03/06/2020 ; Source: New Immunization Record Flu (split) (3 Completed Note: [facility] yrs or older) 9 Administered Flu 00:00:00 vaccine without any complications. [facility] 03/06/2020 ; Source: New Immunization Record Flu (split) (3 Completed Note: [facility] yrs or older) 9 Administered Flu 00:00:00 vaccine without any complications. [facility] 03/06/2020 ; Source: New Immunization Record Flu (split) (3 Completed Note: [facility] y[facility] or older) 9 Administered Flu 00:00:00 vaccine without any complications. [facility] 03/06/2020 ; Source: New Immunization Record Flu (split) (3 Completed Note: [facility] yrs or older) 9 Administered Flu 00:00:00 vaccine without any complications. [facility] 03/06/2020 ; Source: New Immunization Record Flu (split) (3 Completed Note: [facility] y[facility] or older) 9 Administered Flu 00:00:00 vaccine without any complications. [facility] 03/06/2020 ; Source: New Immunization Record Flu (split) (3 Completed Note: [facility] yrs or older) 9 Administered Flu 00:00:00 vaccine without any complications. [facility] 03/06/2020 ; Source: New Immunization Record Flu (split) (3 Completed Note: [facility] yrs or older) 9 Administered Flu 00:00:00 vaccine without any complications. [facility] 03/06/2020 ; Source: New Immunization Record Flu (split) (3 Completed Note: [facility] yrs or older) 9 Administered Flu 00:00:00 vaccine without any complications. [facility] 03/06/2020 ; Source: New Immunization Record Flu (split) (3 Completed Note: [facility] yrs or older) 9 Administered Flu 00:00:00 vaccine without any complications. [facility] 03/06/2020 ; Source: New Immunization Record Flu (split) (3 Completed Note: [facility] yrs or older) 9 Administered Flu 00:00:00 vaccine without any complications. [facility] 03/06/2020 ; Source: New Immunization Record Flu (split) (3 Completed Note: [facility] yrs or older) 9 Administered Flu 00:00:00 vaccine without any complications. [facility] 03/06/2020 ; Source: New Immunization Record Flu (split) (3 Completed Note: [facility] yrs or older) 9 Administered Flu 00:00:00 vaccine without any complications. [facility] 03/06/2020 ; Source: New Immunization Record Flu (split) (3 Completed Note: [facility] yrs or older) 9 Administered Flu 00:00:00 vaccine without any complications. [facility] 03/06/2020 ; Source: New Immunization Record Flu (split) (3 Completed Note: [facility] yrs or older) 9 Administered Flu 00:00:00 vaccine without any complications. [facility] 03/06/2020 ; Source: New Immunization Record Flu (split) (3 Completed Note: [facility] yrs or older) 9 Administered Flu 00:00:00 vaccine without any complications. [facility] 03/06/2020 ; Source: New Immunization Record Influenza 2017-11-28 Completed Note: FLU VACC 4 [facility] 4 JAM[facility] 3 YRS PLUS 00:00:00 IM By SRODRIGU ; Source: New Immunization Record Influenza 2017-11-28 Completed Note: FLU VACC 4 [facility] 4 JAMIL 3 YRS PLUS 00:00:00 IM By SRODRIGU ; Source: New Immunization Record Influenza 2017-11-28 Completed Note: FLU VACC 4 [facility] 4 JAMIL 3 YRS PLUS 00:00:00 IM By SRODRIGU ; Source: New Immunization Record Influenza 2017-11-28 Completed Note: FLU VACC 4 [facility] 4 JAMIL 3 YRS PLUS 00:00:00 IM By SRODRIGU ; Source: New Immunization Record Influenza 2017-11-28 Completed Note: FLU VACC 4 [facility] 4 JAMIL 3 YRS PLUS 00:00:00 IM By SRODRIGU ; Source: New Immunization Record Influenza 2017-11-28 Completed Note: FLU VACC 4 [facility] 4 JAMIL 3 YRS PLUS 00:00:00 IM By SRODRIGU ; Source: New Immunization Record Influenza 2017-11-28 Completed Note: FLU VACC 4 [facility] 4 JAMIL 3 YRS PLUS 00:00:00 IM By SRODRIGU ; Source: New Immunization Record Influenza 2017-11-28 Completed Note: FLU VACC 4 [facility] 4 JAMIL 3 YRS PLUS 00:00:00 IM By SRODRIGU ; Source: New Immunization Record Influenza 2017-11-28 Completed Note: FLU VACC 4 [facility] 4 JAMIL 3 YRS PLUS 00:00:00 IM By SRODRIGU ; Source: New Immunization Record Influenza 2017-11-28 Completed Note: FLU VACC 4 [facility] 4 JAMIL 3 YRS PLUS 00:00:00 IM By SRODRIGU ; Source: New Immunization Record Influenza 2017-11-28 Completed Note: FLU VACC 4 [facility] 4 JAMIL 3 YRS PLUS 00:00:00 IM By SRODRIGU ; Source: New Immunization Record Influenza 2017-11-28 Completed Note: FLU VACC 4 [facility] 4 JAMIL 3 YRS PLUS 00:00:00 IM By SRODRIGU ; Source: New Immunization Record Influenza 2017-11-28 Completed Note: FLU VACC 4 [facility] 4 JAMIL 3 YRS PLUS 00:00:00 IM By SRODRIGU ; Source: New Immunization Record Influenza 2017-11-28 Completed Note: FLU VACC 4 [facility] 4 JAMIL 3 YRS PLUS 00:00:00 IM By SRODRIGU ; Source: New Immunization Record Influenza 2017-11-28 Completed Note: FLU VACC 4 [facility] 4 JAMIL 3 YRS PLUS 00:00:00 IM By SRODRIGU ; Source: New Immunization Record Influenza 2017-11-28 Completed Note: FLU VACC 4 [facility] 4 JAMIL 3 YRS PLUS 00:00:00 IM By SRODRIGU ; Source: New Immunization Record Influenza 2017-11-28 Completed Note: FLU VACC 4 [facility] 4 JAMIL 3 YRS PLUS 00:00:00 IM By SRODRIGU ; Source: New Immunization Record Influenza 2017-11-28 Completed Note: FLU VACC 4 [facility] 4 JAMIL 3 YRS PLUS 00:00:00 IM By SRODRIGU ; Source: New Immunization Record Influenza 2017-11-28 Completed Note: FLU VACC 4 [facility] 4 JAMIL 3 YRS PLUS 00:00:00 IM By SRODRIGU ; Source: New Immunization Record Influenza 2017-11-28 Completed Note: FLU VACC 4 [facility] 4 JAMIL 3 YRS PLUS 00:00:00 IM By SRODRIGU ; Source: New Immunization Record Influenza 2017-11-28 Completed Note: FLU VACC 4 [facility] 4 JAMIL 3 YRS PLUS 00:00:00 IM By SRODRIGU ; Source: New Immunization Record Influenza 2017-11-28 Completed Note: FLU VACC 4 [facility] 4 JAMIL 3 YRS PLUS 00:00:00 IM By SRODRIGU ; Source: New Immunization Record Influenza 2017-11-28 Completed Note: FLU VACC 4 [facility] 4 JAMIL 3 YRS PLUS 00:00:00 IM By SRODRIGU ; Source: New Immunization Record Influenza 2017-11-28 Completed Note: FLU VACC 4 [facility] 4 JAMIL 3 YRS PLUS 00:00:00 IM By SRODRIGU ; Source: New Immunization Record Influenza 2017-11-28 Completed Note: FLU VACC 4 [facility] 4 JAMIL 3 YRS PLUS 00:00:00 IM By SRODRIGU ; Source: New Immunization Record Influenza 2017-11-28 Completed Note: FLU VACC 4 [facility] 4 JAMIL 3 YRS PLUS 00:00:00 IM By SRODRIGU ; Source: New Immunization Record Influenza 2017-11-28 Completed Note: FLU VACC 4 [facility] 4 JAMIL 3 YRS PLUS 00:00:00 IM By SRODRIGU ; Source: New Immunization Record Influenza 2017-02-[address] [facility]-T[facility] PF 5+ 8 Medical C enter YR 00:00:00 Influenza 2017-02-[address] [facility]-T[facility] PF 5+ 8 Medical C enter YR 00:00:00 Influenza 2017-02-[address] [facility] Three-TIV PF 5+ 8 Medical C enter YR 00:00:00 Influenza 2017-02-[address] [facility] Three-TIV PF 5+ 8 Medical C enter YR 00:00:00 Influenza 2017-02-[address] [facility] Three-T[facility] PF 5+ 8 Medical C enter YR 00:00:00 Influenza 2017-02-[address] [facility] Three-TIV PF 5+ 8 Medical C enter YR 00:00:00 Influenza 2017-02-[address] [facility]-TIV PF 5+ 8 Medical C enter YR 00:00:00 Vital Signs Vital Name Observation Time Observation Value Comments Source WEIGHT 2020-09-23 125.646 kg 13:36:00 HEIGHT 2020-09-22 177.8 cm 14:00:00 WEIGHT 2020-09-22 126.6 kg 14:00:00 HEIGHT 2020-09-22 177.8 cm 06:24:00 WEIGHT 2020-09-22 126.554 kg 06:24:00 WEIGHT 2020-09-23 125.646 kg 13:36:00 HEIGHT 2020-09-22 177.8 cm 14:00:00 WEIGHT 2020-09-22 126.6 kg 14:00:00 HEIGHT 2020-09-22 177.8 cm 06:24:00 WEIGHT 2020-09-22 126.554 kg 06:24:00 HEIGHT 2020-04-30 172.7 cm 18:14:00 WEIGHT 2020-04-30 124.739 kg 18:14:00 HEIGHT 2020-04-30 172.7 cm 18:14:00 WEIGHT 2020-04-30 124.739 kg 18:14:00 HEIGHT 2020-03-30 177.8 cm 19:35:00 WEIGHT 2020-03-30 122.471 kg 19:35:00 HEIGHT 2020-03-30 177.8 cm 19:35:00 WEIGHT 2020-03-30 122.471 kg 19:35:00 HEIGHT 2020-03-19 177.8 cm 23:33:00 WEIGHT 2020-03-19 123.832 kg 23:33:00 HEIGHT 2020-03-19 177.8 cm 23:33:00 WEIGHT 2020-03-19 123.832 kg 23:33:00 HEIGHT 2019 177.8 cm 00:00:00 WEIGHT 2019 121.11 kg 00:00:00 HEIGHT 2019 177.8 cm 00:00:00 WEIGHT 2019 121.11 kg 00:00:00 Body height 2021-05-13 172.72 cm [facility] 09:13:00 Patient Body Weight 2021-05-13 111.039 kg [facility] 09:13:00 [facility] 2021-05-13 134 mm[Hg] [facility] Systolic 09:13:00 Int[facility]ascular 2021-05-13 90 mm[Hg] [facility] Diastolic 09:13:00 Heart Beat 2021-05-13 70 /min [facility] 09:13:00 Body Temperature 2021-05-13 36.50 [facility] 09:13:00 Body mass index 2021-05-13 37.22 kg/m2 [facility] 09:13:00 Body height 2021-01-29 172.72 cm [facility] 09:34:00 Patient Body Weight 2021-01-29 112.672 kg [facility] 09:34:00 [facility] 2021-01-29 126 mm[Hg] [facility] Systolic 09:34:00 Int[facility]ascular 2021-01-29 76 mm[Hg] [facility] Diastolic 09:34:00 Heart Beat 2021-01-29 89 /min [facility] 09:34:00 Body Temperature 2021-01-29 36.28 [facility] 09:34:00 Respiratory Rate 2021-01-29 18 /min [facility] 09:34:00 Body mass index 2021-01-29 37.77 kg/m2 [facility] 09:34:00 Body height 2020-12-03 172.72 cm [facility] 08:35:00 Patient Body Weight 2020-12-03 109.406 kg [facility] 08:35:00 [facility] 2020-12-03 121 mm[Hg] [facility] Systolic 08:35:00 Int[facility]ascular 2020-12-03 79 mm[Hg] [facility] Diastolic 08:35:00 Heart Beat 2020-12-03 80 /min [facility] 08:35:00 Body Temperature 2020-12-03 36.33 [facility] 08:35:00 Respiratory Rate 2020-12-03 18 /min [facility] 08:35:00 Body mass index 2020-12-03 36.67 kg/m2 [facility] 08:35:00 Body height 2020-10-29 172.72 cm [facility] 08:12:00 Patient Body Weight 2020-10-29 117.480 kg [facility] 08:12:00 [facility] 2020-10-29 102 mm[Hg] [facility] Systolic 08:12:00 Int[facility]ascular 2020-10-29 67 mm[Hg] [facility] Diastolic 08:12:00 Heart Beat 2020-10-29 72 /min [facility] 08:12:00 Body Temperature 2020-10-29 36.28 [facility] 08:12:00 Respiratory Rate 2020-10-29 18 /min [facility] 08:12:00 Body mass index 2020-10-29 39.38 kg/m2 [facility] 08:12:00 Heart rate 2020-09-29 76 /min [facility] Respiratory rate 2020-09-29 18 /[facility] Oxygen saturation in 2020-09-29 97 /min [facility] Arterial blood by 08:55:00 Medical nter Pulse oximetry Systolic blood 2020-09-29 134 mm[Hg] [facility] pressure 04:00:00 [facility] Diastolic blood 2020-09-29 76 mm[Hg] [facility] pressure 04:00:00 [facility] Body temperature 2020-09-[address] [facility] 04:00:00 [facility] Body weight 2020-09-[address] [facility] 13:36:00 [facility] BMI 2020-09-23 39.75 kg/m2 [facility] 13:36:00 [facility] Body height 2020-09-[address] [facility] 14:00:00 [facility] Body height 2020-09-17 172.72 cm [facility] 10:27:00 Patient Body Weight 2020-09-17 129.365 kg [facility] 10:27:00 [facility] 2020-09-17 122 mm[Hg] [facility] Systolic 10:27:00 Int[facility]ascular 2020-09-17 71 mm[Hg] [facility] Diastolic 10:27:00 Heart Beat 2020-09-17 82 /min [facility] 10:27:00 Body Temperature 2020-09-17 36.56 [facility] 10:27:00 Respiratory Rate 2020-09-17 18 /min [facility] 10:27:00 Body mass index 2020-09-17 43.36 kg/m2 [facility] 10:27:00 Body height 2020-08-15 172.72 cm [facility] 15:21:00 Patient Body Weight 2020-08-15 122.016 kg [facility] 15:21:00 [facility] 2020-08-15 165 mm[Hg] [facility] Systolic 15:21:00 Int[facility]ascular 2020-08-15 97 mm[Hg] [facility] Diastolic 15:21:00 Heart Beat 2020-08-15 86 /min [facility] 15:21:00 Body Temperature 2020-08-15 36.28 [facility] 15:21:00 Respiratory Rate 2020-08-15 18 /min [facility] 15:21:00 Body mass index 2020-08-15 40.90 kg/m2 [facility] 15:21:00 Body height 2020-04-26 172.72 cm [facility] 09:59:00 Patient Body Weight 2020-04-26 123.740 kg [facility] 09:59:00 [facility] 2020-04-26 120 mm[Hg] [facility] Systolic 09:59:00 Int[facility] 2020-04-26 66 mm[Hg] [facility] Diastolic 09:59:00 Heart Beat 2020-04-26 85 /min [facility] 09:59:00 Body Temperature 2020-04-26 36.11 [facility] 09:59:00 Respiratory Rate 2020-04-26 18 /min [facility] 09:59:00 Body mass index 2020-04-26 41.48 kg/m2 [facility] 09:59:00 Body height 2020-03-06 172.72 cm [facility] 14:18:00 Patient Body Weight 2020-03-06 123.740 kg [facility] 14:18:00 [facility] 2020-03-06 115 mm[Hg] [facility] Systolic 14:18:00 Intravascular 2020-03-06 71 mm[Hg] [facility] Diastolic 14:18:00 Heart Beat 2020-03-06 73 /min [facility] 14:18:00 Body Temperature 2020-03-06 36.22 [facility] 14:18:00 Respiratory Rate 2020-03-06 18 /min [facility] 14:18:00 Body mass index 2020-03-06 41.48 kg/m2 [facility] 14:18:00 Body height 2019-11-09 172.72 cm [facility] 16:08:00 Patient Body Weight 2019-11-09 118.932 kg [facility] 16:08:00 [facility] 2019-11-09 124 mm[Hg] [facility] Systolic 16:08:00 Intravascular 2019-11-09 81 mm[Hg] [facility] Diastolic 16:08:00 Heart Beat 2019-11-09 66 /min [facility] 16:08:00 Body Temperature 2019-11-09 36.50 [facility] 16:08:00 Respiratory Rate 2019-11-09 18 /min [facility] 16:08:00 Body mass index 2019-11-09 39.87 kg/m2 [facility] 16:08:00 Body height 2019-07-03 172.72 cm [facility] 10:14:00 Patient Body Weight 2019-07-03 121.381 kg [facility] 10:14:00 [facility] 2019-07-03 128 mm[Hg] [facility] Systolic 10:14:00 Intravascular 2019-07-03 77 mm[Hg] [facility] Diastolic 10:14:00 Heart Beat 2019-07-03 85 /min [facility] 10:14:00 Body Temperature 2019-07-03 36.94 [facility] 10:14:00 Body mass index 2019-07-03 40.69 kg/m2 [facility] 10:14:00 Int[facility]ascular 2019-04-04 160 mm[Hg] [facility] Systolic 15:01:00 Intravascular 2019-04-04 101 mm[Hg] [facility] Diastolic 15:01:00 Heart Beat 2019-04-04 82 /min [facility] 15:01:00 Body height 2019-04-04 172.72 cm [facility] 14:21:00 Patient Body Weight 2019-04-04 119.295 kg [facility] 14:21:00 [facility] 2019-04-04 161 mm[Hg] [facility] Systolic 14:21:00 Intravascular 2019-04-04 113 mm[Hg] [facility] Diastolic 14:21:00 Heart Beat 2019-04-04 88 /min [facility] 14:21:00 Body Temperature 2019-04-04 36.78 [facility] 14:21:00 Respiratory Rate 2019-04-04 18 /min [facility] 14:21:00 Body mass index 2019-04-04 39.99 kg/m2 [facility] 14:21:00 Body height 2018-09-06 68.00 [in_us] [facility] 09:34:00 Patient Body Weight 2018-09-06 267.60 [lb_av] [facility] 09:34:00 Int[facility] 2018-09-06 107 mm[Hg] [facility] Systolic 09:34:00 Intravascular 2018-09-06 70 mm[Hg] [facility] Diastolic 09:34:00 Heart Beat 2018-09-06 72 /min [facility] 09:34:00 Body Temperature 2018-09-06 98.00 [degF] [facility] 09:34:00 Respiratory Rate 2018-09-06 18 /min [facility] 09:34:00 Body mass index 2018-09-06 40.70 kg/m2 [facility] 09:34:00 Body height 2018-07-26 68.00 [in_us] [facility] 15:37:00 Patient Body Weight 2018-07-26 263.00 [lb_av] [facility] 15:37:00 Int[facility]ascular 2018-07-26 150 mm[Hg] [facility] Systolic 15:37:00 Intravascular 2018-07-26 96 mm[Hg] [facility] Diastolic 15:37:00 Heart Beat 2018-07-26 73 /min [facility] 15:37:00 Body Temperature 2018-07-26 98.10 [degF] [facility] 15:37:00 Respiratory Rate 2018-07-26 18 /min [facility] 15:37:00 Body mass index 2018-07-26 40.00 kg/m2 [facility] 15:37:00 Body height 2018-03-30 68.00 [in_us] [facility] 13:09:00 Patient Body Weight 2018-03-30 261.40 [lb_av] [facility] 13:09:00 Intravascular 2018-03-30 136 mm[Hg] [facility] Systolic 13:09:00 Intravascular 2018-03-30 80 mm[Hg] [facility] Diastolic 13:09:00 Heart Beat 2018-03-30 74 /min [facility] 13:09:00 Body Temperature 2018-03-30 97.60 [degF] [facility] 13:09:00 Respiratory Rate 2018-03-30 18 /min [facility] 13:09:00 Body mass index 2018-03-30 39.70 kg/m2 [facility] 13:09:00 Body height 2017-12-20 68.00 [in_us] [facility] 07:28:00 Patient Body Weight 2017-12-20 277.60 [lb_av] [facility] 07:28:00 Int[facility]ascular 2017-12-20 157 mm[Hg] [facility] Systolic 07:28:00 Intravascular 2017-12-20 88 mm[Hg] [facility] Diastolic 07:28:00 Heart Beat 2017-12-20 74 /min [facility] 07:28:00 Body Temperature 2017-12-20 97.50 [degF] [facility] 07:28:00 Respiratory Rate 2017-12-20 18 /min [facility] 07:28:00 Body mass index 2017-12-20 42.20 kg/m2 [facility] 07:28:00 Intravascular 2017-07-14 152 mm[Hg] [facility] Systolic 09:14:00 Intravascular 2017-07-14 90 mm[Hg] [facility] Diastolic 09:14:00 Body height 2017-07-14 68.00 [in_us] [facility] 09:04:00 Patient Body Weight 2017-07-14 267.20 [lb_av] [facility] 09:04:00 Intravascular 2017-07-14 182 mm[Hg] [facility] Systolic 09:04:00 Intravascular 2017-07-14 102 mm[Hg] [facility] Diastolic 09:04:00 Heart Beat 2017-07-14 100 /min [facility] 09:04:00 Body Temperature 2017-07-14 208.20 [degF] [facility] 09:04:00 Respiratory Rate 2017-07-14 20 /min [facility] 09:04:00 Body mass index 2017-07-14 40.60 kg/m2 [facility] 09:04:00 Body height 2017-06-10 68.00 [in_us] [facility] 08:27:00 Patient Body Weight 2017-06-10 297.20 [lb_av] [facility] 08:27:00 Intravascular 2017-06-10 140 mm[Hg] [facility] Systolic 08:27:00 Intravascular 2017-06-10 95 mm[Hg] [facility] Diastolic 08:27:00 Heart Beat 2017-06-10 66 /min [facility] 08:27:00 Body Temperature 2017-06-10 98.50 [degF] [facility] 08:27:00 Respiratory Rate 2017-06-10 18 /min [facility] 08:27:00 Body mass index 2017-06-10 45.20 kg/m2 [facility] 08:27:00 Body height 2017-04-09 68.00 [in_us] [facility] 13:28:00 Patient Body Weight 2017-04-09 272.20 [lb_av] [facility] 13:28:00 Intravascular 2017-04-09 137 mm[Hg] [facility] Systolic 13:28:00 Intravascular 2017-04-09 85 mm[Hg] [facility] Diastolic 13:28:00 Heart Beat 2017-04-09 64 /min [facility] 13:28:00 Body Temperature 2017-04-09 97.90 [degF] [facility] 13:28:00 Respiratory Rate 2017-04-09 18 /min [facility] 13:28:00 Body mass index 2017-04-09 41.40 kg/m2 [facility] 13:28:00 Body height 2017-02-09 68.00 [in_us] [facility] 14:42:00 Patient Body Weight 2017-02-09 258.00 [lb_av] [facility] 14:42:00 Intravascular 2017-02-09 151 mm[Hg] [facility] Systolic 14:42:00 Intravascular 2017-02-09 83 mm[Hg] [facility] Diastolic 14:42:00 Heart Beat 2017-02-09 81 /min [facility] 14:42:00 Body Temperature 2017-02-09 98.10 [degF] [facility] 14[facility] Respiratory Rate 2017-02-09 18 /min [facility] 14:[facility]:00 Body mass index 2017-02-09 39.20 kg/m2 [facility] 14:42:00 Intravascular 2016-08-03 131 mm[Hg] [facility] Systolic 16:13:00 Intravascular 2016-08-03 74 mm[Hg] [facility] Diastolic 16:13:00 Heart Beat 2016-08-03 76 /min [facility] 16:13:00 Body height 2016-07-16 68.00 [in_us] [facility] 08:27:00 Patient Body Weight 2016-07-16 252.20 [lb_av] [facility] 08:27:00 Intravascular 2016-07-16 176 mm[Hg] [facility] Systolic 08:27:00 Intravascular 2016-07-16 102 mm[Hg] [facility] Diastolic 08:27:00 Heart Beat 2016-07-16 68 /min [facility] 08:27:00 Body Temperature 2016-07-16 98.90 [degF] [facility] 08:27:00 Respiratory Rate 2016-07-16 18 /min [facility] 08:27:00 Body mass index 2016-07-16 38.30 kg/m2 [facility] 08:27:00 Body height 2016-03-26 68.00 [in_us] [facility] 14:36:00 Patient Body Weight 2016-03-26 277.80 [lb_av] [facility] 14:36:00 Intravascular 2016-03-26 162 mm[Hg] [facility] Systolic 14:36:00 Intravascular 2016-03-26 91 mm[Hg] [facility] Diastolic 14:36:00 Heart Beat 2016-03-26 71 /min [facility] 14:36:00 Body Temperature 2016-03-26 98.70 [degF] [facility] 14:36:00 Respiratory Rate 2016-03-26 18 /min [facility] 14:36:00 Body mass index 2016-03-26 42.20 kg/m2 [facility] 14:36:00 Body height 2016-01-21 68.00 [in_us] [facility] 11:10:00 Patient Body Weight 2016-01-21 256.00 [lb_av] [facility] 11:10:00 Intravascular 2016-01-21 186 mm[Hg] [facility] Systolic 11:10:00 Intravascular 2016-01-21 96 mm[Hg] [facility] Diastolic 11:10:00 Heart Beat 2016-01-21 68 /min [facility] 11:10:00 Body Temperature 2016-01-21 98.80 [degF] [facility] 11:10:00 Respiratory Rate 2016-01-21 18 /min [facility] 11:10:00 Body mass index 2016-01-21 38.90 kg/m2 [facility] 11:10:00 Body height 2015-09-26 68.00 [in_us] [facility] 14:28:00 Patient Body Weight 2015-09-26 254.00 [lb_av] [facility] 14:28:00 Intravascular 2015-09-26 186 mm[Hg] [facility] Systolic 14:28:00 Intravascular 2015-09-26 96 mm[Hg] [facility] Diastolic 14:28:00 Heart Beat 2015-09-26 61 /min [facility] 14:28:00 Body Temperature 2015-09-26 98.70 [degF] [facility] 14[facility]28:00 Respiratory Rate 2015-09-26 18 /min [facility] 14:28:00 Body mass index 2015-09-26 38.60 kg/m2 [facility] 14:28:00 Intravascular 2015-05-03 180 mm[Hg] [facility] Systolic 16:39:00 Intravascular 2015-05-03 104 mm[Hg] [facility] Diastolic 16:39:00 Body height 2015-05-03 68.00 [in_us] [facility] 15:36:00 Patient Body Weight 2015-05-03 245.00 [lb_av] [facility] 15:36:00 Intravascular 2015-05-03 195 mm[Hg] [facility] Systolic 15:36:00 Intravascular 2015-05-03 100 mm[Hg] [facility] Diastolic 15:36:00 Heart Beat 2015-05-03 75 /min [facility] 15:36:00 Body Temperature 2015-05-03 97.90 [degF] [facility] 15:36:00 Respiratory Rate 2015-05-03 20 /min [facility] 15:36:00 Body mass index 2015-05-03 37.20 kg/m2 [facility] 15:36:00 Procedures Procedure Date / Time Performing Clinician Source Performed FOLLOW-UP 2021-05-20 00:00[facility] TO 2021-05-20 00:00:00 [facility] SHORT TERM- SCREENED, 2021-05-20 00:00:00 [facility] REFUSED PHONE CALL TO 2021-05-16 00:00:00 [facility] SHORT TERM - SCREENED - 2021-05-15 00:00:00 [facility] QUALIFIED PHONE CALL TO 2021-05-15 00:00:00 [facility] SHORT TERM - SCREENED - 2021-05-14 00:00:00 [facility] QUALIFIED SHORT TERM - COOR/HUGO 2021-05-14 00:00:00 [facility] SHORT TERM PATIENT AT ER 2021-05-14 00:00:00 Acc [facility] SINCE LAST VISIT GLUCOSE BLOOD TEST 2021-05-13 00:00:00 [facility] OFFICE[facility]OUTPATIENT [facility]ISIT 2021-05[facility]13 [facility] 2021-01-29 [facility] EST COMPREHEN METABOLIC 2021-01-29 00:00:00 [facility] alth PANEL URINALYSIS AUTO W/SCOPE 2021-01-29 00:00:00 [facility] UR ALBUMIN QUANTITATIVE 2021-01-29 00:00:00 [facility] GLYCOSYLATED HEMOGLOBIN 2021-01-29 00:00[facility] TEST VITAMIN D 25 HYDROXY 2021-01-29 00:00:00 [facility] ealth ASSAY OF NATRIURETIC 2021-01-29 00:00:00 [facility] PEPTIDE ASSAY OF BLOOD/URIC ACID 2021-01-29 00:00:00 Acc [facility] ASSAY OF PHOSPHORUS 2021-01-29 00:00:00 [facility] alth RBC SED RATE AUTOMATED 2021-01-29 00:00:00 [facility] ASSAY OF MAGNESIUM 2021-01-29 00:00:00 [facility] C-REACTIVE PROTEIN 2021-01-29 00:00:00 [facility] GLUCOSE BLOOD TEST 2020-12-03 00:00:00 [facility] OFFICE/OUTPATIENT VISIT 2020-12-03 00:00:00 [facility] EST Insulin injection 2020-12-03 00:00:00 [facility] th THER/PROPH/DIAG INJ 2020-12-03 00:00:00 [facility] SC/IM COMPREHEN METABOLIC 2020-12-03 00:00:00 [facility] PANEL ASSAY OF NATRIURETIC 2020-12-03 00:00:00 [facility] ealth PEPTIDE ASSAY OF PHOSPHORUS 2020-12-03 00:00:00 [facility] GLUCOSE BLOOD TEST 2020-10-29 00:00:00 [facility] OFFICE/OUTPATIENT VISIT 2020-10-29 00:00:00 [facility] EST COMPLETE CBC W/AUTO DIFF 2020-10-29 00:00:00 Acc [facility] WBC COMPREHEN METABOLIC 2020-10-29 00:00:00 [facility] PANEL URINALYSIS AUTO W/SCOPE 2020-10-29 00:00[facility] LIPID PANEL 2020-10-29 00:00:00 [facility] GLYCOSYLATED HEMOGLOBIN 2020-10-29 00:00:[facility] TEST VITAMIN D 25 HYDROXY 2020-10-29 00:00:00 [facility] ealth ASSAY OF NATRIURETIC 2020-10-29 00:00:00 [facility] ealth PEPTIDE ASSAY OF MAGNESIUM 2020-10-29 00:00:00 [facility] ASSAY OF PARATHORMONE 2020-10-29 00:00:00 [facility] HAND, MINIMUM THREE 2020-10-29 00:00:00 [facility] VIEWS, RADIOLOGIC EXAM CBC W/PLT COUNT & AUTO 2020-09-29 04:29:00 Gretchen Hensley [facility] DIFFERENTIAL [place] BASIC METABOLIC PANEL 2020-09-29 04:29:00 [facility] [place] MAGNESIUM 2020-09-29 04:29:00 [facility] CBC W/PLT COUNT & AUTO 2020-09-29 04:29:00 HensleyGretchen [facility] Center POCT-GLUCOSE METER 2020-09-28 17:27:00 Shieh, [facility] POCT-GLUCOSE METER 2020-09-28 12:49:00 Shieh, [facility] POCT-GLUCOSE METER 2020-09-28 05:58:00 Shieh, [facility] CBC W/PLT COUNT & AUTO 2020-09-28 04:49:00 Ayden [facility] BASIC METABOLIC PANEL 2020-09-28 04:49:00 [facility] (7) [place] MAGNESIUM 2020-09-28 04:49:00 Hensley [facility] CBC W/PLT COUNT & AUTO 2020-09-28 04:49:00 [facility] POCT-GLUCOSE METER 2020-09-27 20:57:00 Shiisrael [facility] POCT-GLUCOSE METER 2020-09-27 19:07:00 Shieh, [facility] POCT-GLUCOSE METER 2020-09-27 12:26:00 Shieh, [facility] POCT-GLUCOSE METER 2020-09-27 06:36:00 Shi, [facility] CBC W/PLT COUNT & AUTO 2020-09-27 03:45:00 [facility] BASIC METABOLIC PANEL 2020-09-27 03:45:00 [facility] (7) [place] MAGNESIUM 2020-09-27 03:45:00 Hensley [facility] CBC W/PLT COUNT & AUTO 2020-09-27 03:45:00 [facility] POCT-GLUCOSE METER 2020-09-26 23:12:00 Shieh, [facility] POCT-GLUCOSE METER 2020-09-26 18:20:00 Shieh, [facility] POCT-GLUCOSE METER 2020-09-26 13:31:00 Shieh, [facility] XR FOOT 3 VIEWS LEFT 2020-09-26 08:38:[address] [facility] POCT-GLUCOSE METER 2020-09-26 08:34:00 Parish [facility] ANAEROBIC CULTURE 2020-09-26 08:07:57 [facility] SURGICALLY OBTAINED 2020-09-26 08:07:57 Patrick [facility] CULTURE + GRAM STAIN [facility] ANAEROBIC CULTURE 2020-09-26 08:02:39 [facility] SURGICALLY OBTAINED 2020-09-26 08:02:39 [facility] CULTURE + GRAM STAIN [facility] TISSUE EXAM 2020-09-26 07:56:00 Patrick [place] AMPUTATION,TOE 2020-09-26 07:12:00 Patrick [place] CBC W/PLT COUNT & AUTO 2020-09-26 04:37:00 Ayden [facility] BASIC METABOLIC PANEL 2020-09-26 04:37:00 Hensley [facility] (7) Center MAGNESIUM 2020-09-26 04:37:00 Ayden [facility] B-TYPE NATRIURETIC 2020-09-26 04:37:00 Parish [facility] (BNP) [facility] CBC W/PLT COUNT & AUTO 2020-09-26 04:37:00 Gretchen Hensley [facility] POCT-GLUCOSE METER 2020-09-25 21:10:00 Parish [facility] POCT-GLUCOSE METER 2020-09-25 16:15:00 Parish [facility] POCT-GLUCOSE METER 2020-09-25 11:21:00 Parish [facility] POCT-GLUCOSE METER 2020-09-25 06:02:00 Ayden [facility] CBC W/PLT COUNT & AUTO 2020-09-25 04:44:00 [facility] BASIC METABOLIC PANEL 2020-09-25 04:44:00 Ayden [facility] (7) Center MAGNESIUM 2020-09-25 04:44:00 Hensley [facility] CBC W/PLT COUNT & AUTO 2020-09-25 04:44:00 Ayden [facility] POCT-GLUCOSE METER 2020-09-24 20:36:00 [facility] POCT-GLUCOSE METER 2020-09-24 17:37:00 [facility] HC ARTERIAL DOPPLER LEGS 2020-09-24 13:22:00 Laura Nguyen [facility] Center POCT-GLUCOSE METER 2020-09-24 06:34:00 Hensley [facility] CBC W/PLT COUNT & AUTO 2020-09-24 05:11:00 Ayden [facility] BASIC METABOLIC PANEL 2020-09-24 05:11:00 [facility] (7) Center MAGNESIUM 2020-09-24 05:11:00 [facility] PTH, INTACT 2020-09-24 05:11:00 [facility] [place] VIT[facility] D, 25-HYDROXY 2020-09-24 05:11:00 Nneka [facility] CBC W/PLT COUNT & AUTO 2020-09-24 05:11:00 [facility] IRON, TIBC, % SAT. 2020-09-24 05:10:00 Nneka [facility] (WITHOUT FERRITIN) [facility] FERRITIN 2020-09-24 05:10:00 Nneka [facility] POCT-GLUCOSE METER 2020-09-23 21:25:00 Ayden [facility] US RENAL COMPLETE 2020-09-23 20:30:00 Nneka, [facility] URINALYSIS W/ REFLEX 2020-09-23 16:58:00 Nneka, [facility] URINE CULTURE [facility] SODIUM, RANDOM URINE 2020-09-23 16:58:00 Nneka, [facility] CHLORIDE, RANDOM URINE 2020-09-23 16:58:00 Nneka, max Suh [facility] POTASSIUM, RANDOM URINE 2020-09-23 16:58:00 Nneka, Rene Suh C [facility] UREA NITROGEN, RANDOM 2020-09-23 16:58:00 Nneka, [facility] URINE [facility] CREATININE, RANDOM URINE 2020-09-23 16:58:00 Nneka, [facility] PROTEIN, RANDOM URINE 2020-09-23 16:58:00 Nneka, [facility] POCT-GLUCOSE METER 2020-09-23 16:20:00 [facility] POCT-GLUCOSE METER 2020-09-23 11:40:00 Ayden [facility] 2D ECHO W/ DOPPLER 2020-09-23 08:00:54 Ayden [facility] (CW/PW/COLOR) [place] POCT-GLUCOSE METER 2020-09-23 07:58:00 Ayden [facility] XR FOOT 3 VIEWS LEFT 2020-09-23 07:33:00 Laura Nguyen [facility] Center CBC W/PLT COUNT & AUTO 2020-09-23 04:51:00 [facility] BASIC METABOLIC PANEL 2020-09-23 04:51:00 [facility] MAGNESIUM 2020-09-23 04:51:00 [facility] 2020-09-23 04:51:00 [facility] CBC W/PLT COUNT & AUTO 2020-09-23 04:51:00 Gretchen Hensley [facility] DIFFERENTIAL Center POCT-GLUCOSE METER 2020-09-22 20:46:00 [facility] POCT-GLUCOSE METER 2020-09-22 17:01:00 Gretchen [facility] SARS-COV2/RT-PCR ([facility] & 2020-09-22 10:50:00 Gretchen Hensley [facility] REF LABS) Center B-TYPE NATRIURETIC 2020-09-22 06:54:00 [facility] FACTOR (BNP) [facility] BASIC METABOLIC PANEL 2020-09-22 06:54:00 PerkinsDavid [facility] (7) [facility] CBC W/PLT COUNT & AUTO 2020-09-22 06:54:00 VenkateshDavid [facility] DIFFERENTIAL [facility] PT/APTT 2020-09-22 06:54:00 [facility] TROPONIN I 2020-09-22 06:54:00 [facility] CBC W/PLT COUNT & AUTO 2020-09-22 06:54:00 VenkateshDavid [facility] DIFFERENTIAL [facility] ED ECG INTERPRETATION 2020-09-22 06:40:53 [facility] XR CHEST 1 VIEW PORTABLE 2020-09-22 06:36:00 VenkateshDavid [facility] / BEDSIDE [facility] REPORT OF PROCEDURE - 2020-09-22 00:00:00 ProviderMolina [facility] ENDOSCOPY SCAN Scanning Center GLUCOSE BLOOD TEST 2020-09-17 00:00:00 [facility] OFFICE/OUTPATIENT VISIT 2020-09-17 00:00:00 [facility] EST GLUCOSE BLOOD TEST 2020-08-15 00:00:00 [facility] OFFICE/OUTPATIENT VISIT 2020-08-15 00:00:00 [facility] EST COMPREHEN METABOLIC 2020-08-15 00:00:00 [facility] PANEL LIPID PANEL 2020-08-15 00:00:00 [facility] GLYCOSYLATED HEMOGLOBIN 2020-08-15 00:00:00 [facility] TEST ASSAY OF NATRIURETIC 2020-08-15 00:00:00 [facility] PEPTIDE PFIZER- ADM SARSCOV2 2020-07-24 00:00:00 [facility] 30MCG/0.3ML 2ND PFIZER-ADM SARSCOV2 2020-06-28 00:00:00 [facility] 30MCG/0.3ML 1ST CBC W/PLT COUNT & AUTO 2020-04-30 18:40:00 David Riddle [facility] S [facility] DIFFERENTIAL [facility] LACTIC ACID, VENOUS 2020-04-30 18:40:00 David Riddle [facility] COMPREHENSIVE METABOLIC 2020-04-30 18:40:00 David Riddle [facility] PANEL [facility] PROTHROMBIN TIME/INR 2020-04-30 18:40:00 David Riddle [facility] TYPE AND SCREEN, 2020-04-30 18:40:00 David Riddle [facility] AUTOMATED [facility] CBC W/PLT COUNT & AUTO 2020-04-30 18:40:00 David Riddle [facility] DIFFERENTIAL [facility] GLUCOSE BLOOD TEST 2020-04-26 00:00[facility]00 [facility] 2020-04-26 00:00:00 [facility] EST POCT-GLUCOSE METER 2020-04-06 08:02:00 Frandy Lugo [facility] BASIC METABOLIC PANEL 2020-04-06 04:26:00 Frandy Lugo [facility] (7) [place] CBC W/PLT COUNT & AUTO 2020-04-06 04:26:00 Frandy Lugo [facility] DIFFERENTIAL [place] CBC W/PLT COUNT & AUTO 2020-04-06 04:26:00 Frandy Lugo [facility] POCT-GLUCOSE METER 2020-04-05 22:06:00 Frandy Lugo [facility] POCT-GLUCOSE METER 2020-04-05 15:18:00 Parish Frandy C [facility] POCT-GLUCOSE METER 2020-04-05 11:37:00 Frandy Lugo [facility] IR PICC LINE PLACEMENT 2020-04-05 11:14:00 Frandy Lugo [facility] OLDER THAN 5 YRS Center POCT-GLUCOSE METER 2020-04-05 09:23:00 Frandy Lugo [facility] POCT-GLUCOSE METER 2020-04-05 07:59:00 Frandy Lugo [facility] BASIC METABOLIC PANEL 2020-04-05 04:40:00 Frandy Lugo [facility] (7) [place] CBC W/PLT COUNT & AUTO 2020-04-05 04:40:00 Frandy Lugo [facility] DIFFERENTIAL [place] CBC W/PLT COUNT & AUTO 2020-04-05 04:40:00 Frandy Lugo [facility] VANCOMYCIN LEVEL, TROUGH 2020-04-04 23:37:00 Stephane Echavarria I [facility] POCT-GLUCOSE METER 2020-04-04 21:14:00 Frandy Lugo [facility] POCT-GLUCOSE METER 2020-04-04 15:41:00 Parish Frandy C [facility] POCT-GLUCOSE METER 2020-04-04 11:36:00 Parish Frandy C [facility] POCT-GLUCOSE METER 2020-04-04 07:45:00 Parish Frandy C [facility] PROTEIN ELECTROPHORESIS, 2020-04-04 05:23:00 [facility] SERUM [facility] PTH, INTACT 2020-04-04 05:23:00 [facility] BASIC METABOLIC PANEL 2020-04-04 05:23:00 Frandy Lugo [facility] (7) Center CBC W/PLT COUNT & AUTO 2020-04-04 05:23:00 Frandy Lugo [facility] DIFFERENTIAL Center CBC W/PLT COUNT & AUTO 2020-04-04 05:23:00 Parish Frandy C [facility] POCT-GLUCOSE METER 2020-04-03 21:31:00 Frandy Lugo [facility] KAPPA / LAMBDA LIGHT 2020-04-03 17:10:00 [facility] CHAINS, SERUM [facility] HC LAB HIV-1 AG 2020-04-03 17:10:00 [facility] W/HIV-1&2 AB [facility] HEPATITIS PANEL, ACUTE 2020-04-03 17:10:00 [facility] CBC W/PLT COUNT & AUTO 2020-04-03 17:10:00 [facility] DIFFERENTIAL [facility] BASIC METABOLIC PANEL 2020-04-03 17:10:00 Frandy Lugo [facility] (7) [place] CBC W/PLT COUNT & AUTO 2020-04-03 17:10:00 [facility] DIFFERENTIAL [facility] POCT-GLUCOSE METER 2020-04-03 16:05:00 Frandy Lugo [facility] POCT-GLUCOSE METER 2020-04-03 11:34:00 Frandy Lugo [facility] PROTEIN, RANDOM URINE 2020-04-03 10:52:00 [facility] SODIUM, RANDOM URINE 2020-04-03 10:39:00 Frandy Lugo [facility] CREATININE, RANDOM URINE 2020-04-03 10:39:00 Frandy Lugo I [facility] UREA NITROGEN, RANDOM 2020-04-03 10:39:00 Frandy Lugo [facility] URINE Center URINALYSIS W/ 2020-04-03 10:39:[address] [facility] B-TYPE NATRIURETIC 2020-04-03 10:20:00 Milagros Lainez [facility] (BNP) [facility] US RENAL COMPLETE 2020-04-03 08:45:00 Frandy Lugo [facility] POCT-GLUCOSE METER 2020-04-03 07:27:00 Ray Ellis [facility] CBC (HEMOGRAM ONLY) 2020-04-03 04:48:00 Lilliam, [facility] BASIC METABOLIC PANEL 2020-04-03 04:48:00 Lilliam, [facility] (7) Center PHOSPHORUS 2020-04-03 04:48:00 Keven Tiwari [facility] VANCOMYCIN LEVEL, TROUGH 2020-04-02 22:02:00 Jazmin Willard [facility] POCT-GLUCOSE METER 2020-04-02 21:17:00 Lilliam, [facility] CT LOWER EXTREMITY 2020-04-02 17:38:00 [facility] IV CONTRAST [facility] Center POCT-GLUCOSE METER 2020-04-02 15:51:00 [facility] PO[facility]-GLUCOSE METER 2020-04-02 11:43:00 [facility] CBC (HEMOGRAM ONLY) 2020-04-02 06:31:00 [facility] BASIC METABOLIC PANEL 2020-04-02 06:31:00 [facility] () [place] POCT-GLUCOSE METER 2020-04-01 15:37:00 [facility] ANAEROBIC CULTURE 2020-04-01 13:30:14 [facility] SURGICALLY OBTAINED 2020-04-01 13:30:14 [facility] CULTURE + GRAM STAIN [facility] ANAEROBIC CULTURE 2020-04-01 13:21:05 [facility] SURGICALLY OBTAINED 2020-04-01 13:21:05 [facility] CULTURE + GRAM STAIN [facility] TISSUE EXAM 2020-04-01 13:12:00 [facility] POCT-GLUCOSE METER 2020-04-01 12:48:00 [facility] DEBRIDEMENT/I&D,WOUND 2020-04-01 11:52:00 , [facility] EXTREMITY LOWER Thy Center POCT-GLUCOSE METER 2020-04-01 11:37:00 Lilliam, [facility] ECG 12-LEAD 2020-04-01 08:42:02 Unknown, Hl7 [facility] ECG 12-LEAD 2020-04-01 08:42:02 Unknown, Hl7 [facility] POCT-GLUCOSE METER 2020-04-01 07:24:00 Lilliam, [facility] BASIC METABOLIC PANEL 2020-04-01 03:58:00 [facility] (7) [place] POCT-GLUCOSE METER 2020-03-31 20:42:00 [facility] POCT-GLUCOSE METER 2020-03-31 15:27:00 [facility] POCT-GLUCOSE METER 2020-03-31 11:22:00 [facility], [facility] POCT-GLUCOSE METER 2020-03-31 07:18:00 [facility] BASIC METABOLIC PANEL 2020-03-31 04:47:00 [facility] () [place] HEMOGLOBIN A1C 2020-03-31 04:47:00 [facility] CBC W/PLT COUNT & AUTO 2020-03-31 04:47:00 [facility] DIFFERENTIAL Center CBC W/PLT COUNT & AUTO 2020-03-31 04:47:00 [facility] Center POCT-GLUCOSE METER 2020-03-30 21:59:00 [facility] XR FOOT 3 VIEWS LEFT 2020-03-30 21:05:00 [facility] WOUND CULTURE + GRAM 2020-03-30 20:54:00 Tyshawn Serra [facility] SARS-COV2/RT-PCR ([facility] & 2020-03-30 20:50:00 [facility] REF LABS) Center BLOOD CULTURE 2020-03-30 20:49:00 [facility] CBC W/PLT COUNT & AUTO 2020-03-30 20:49:00 Cody [facility] DIFFERENTIAL Center BASIC METABOLIC PANEL 2020-03-30 20:49:00 Cody [facility] (7) Center CBC W/PLT COUNT & AUTO 2020-03-30 20:49:00 Serra [facility] CARDIAC CATH REPORT - 2020-03-30 00:00:00 Provider [facility] SCAN Scanning Center REPORT OF PROCEDURE - 2020-03-30 00:00:00 Provider, [facility] ENDOSCOPY SCAN Scanning Center BLOOD CULTURE 2020-03-20 01:07:00 [facility] LACTIC ACID, VENOUS 2020-03-20 01:07:00 Perkins [facility] CBC W/PLT COUNT & AUTO 2020-03-20 00:55:00 [facility] DIFFERENTIAL [facility] BASIC METABOLIC PANEL 2020-03-20 00:55:00 [facility] (7) [facility] C-REACTIVE PROTEIN 2020-03-20 00:55:00 [facility] CBC W/PLT COUNT & AUTO 2020-03-20 00:55:00 [facility] BLOOD CULTURE 2020-03-20 00:54:00 [facility] XR FOOT 3 VIEWS LEFT 2020-03-20 00:37:00 [facility] GLUCOSE BLOOD TEST 2020-03-06 00:00:00 [facility] Insulin injection 2020-03-06 00:00:00 [facility] THER/PROPH/DIAG INJ 2020-03-06 00:00:00 [facility] SC/IM IMMUNIZATION ADMIN 2020-03-06 00:00[facility]00 [facility] IIV[facility] VACCINE SPLT 0.5 ML 2020-03-06 00:00:00 [facility]FC OFFICE/OUTPATIENT VISIT 2020-03-06 00:00:00 [facility] EST COMPREHEN METABOLIC 2020-03-06 00:00:00 [facility] PANEL LIPID PANEL 2020-03-06 00:00:00 [facility] GLYCOSYLATED HEMOGLOBIN 2020-03-06 00:00:00 [facility] TEST INCISION AND DRAINAGE 2019 07:17:11 Tyshawn Serra H[facility] GLUCOSE BLOOD TEST 2019-11-09 00:00:00 [facility] OFFICE/OUTPATIENT VISIT 2019-11-09 00:00:00 [facility] EST COMPREHEN METABOLIC 2019-11-09 00:00:00 [facility] PANEL LIPID PANEL 2019-11-09 00:00:00 [facility] GLYCOSYLATED HEMOGLOBIN 2019-11-09 00:00:00 [facility] TEST GLUCOSE BLOOD TEST 2019-07-03 [facility] 2019-07-03 00:00:00 [facility] EST COMPREHEN METABOLIC 2019-07-03 00:00:00 [facility] PANEL LIPID PANEL 2019-07-03 00:00:00 [facility] GLYCOSYLATED HEMOGLOBIN 2019-07-03 00:00:00 [facility] TEST GLUCOSE BLOOD TEST 2019-04-04 [facility] 2019-04-04 00:00:00 [facility] EST COMPREHEN METABOLIC 2019-04-04 00:00:00 [facility] PANEL LIPID PANEL 2019-04-04 00:00:00 [facility] GLYCOSYLATED HEMOGLOBIN 2019-04-04 00:00:00 [facility] TEST Plan of Care Planned Activity Planned Date Details Comments Source Future Scheduled 2023-03-[address] [facility]00 (procedure) [code = [facility] 11646947] Future Scheduled 2023-03-[address] [facility] 00:00:00 (procedure) [code = [facility] 00393563] Future Scheduled 2023-03-[address] [facility] 00:00:00 (procedure) [code = [facility] 73770592] Future Scheduled 2023-03-[address] [facility] 00:00:00 (procedure) [code = [facility] 13790146] Future Scheduled 2023-03-[address] [facility] 00:00:00 (procedure) [code = [facility] 00647189] Future Scheduled 2023-03-[address] [facility]procedure[facility] [code [facility] 77520215] Future Scheduled 2023-03-[address] [facility] (procedure) [code = [facility] 63727308] Future Scheduled 2021-09-[address] [facility] examination Medical Center (regime/therapy) [code = 566368417] Future Scheduled 2021-09-[address] [facility] examination [facility] (regime/therapy) [code = 639613526] Future Scheduled 2021-09-[address] [facility] examination [facility] (regime/therapy) [code = 673850262] Future Scheduled 2021-09-[address] [facility] examination [facility] (regime/therapy) [code = 471105822] Future Scheduled 2021-09-[address] [facility] examination [facility] (regime/therapy) [code = 612953024] Future Scheduled 2021-09-[address] [facility] examination [facility] (regime/therapy) [code = 401962282] Future Scheduled 2021-09-[address] [facility] examination Medical Center (regime/therapy) [code = 200150777] Future Scheduled 2020-11-27 INFLUENZA VACCINE (#1) [facility] [code = INFLUENZA Medical Ce nter VACCINE (#1)] Future Scheduled 2020-11-27 INFLUENZA VACCINE (#1) [facility] 00:00[facility]00 [code = INFLUENZA Medical Ce nter VACCINE (#1)] Future Scheduled 2020-11-27 INFLUENZA VACCINE (#1) [facility] 00:00:00 [code = INFLUENZA Medical Ce nter VACCINE (#1)] Future Scheduled 2020-11-27 INFLUENZA VACCINE (#1) [facility] 00:00:00 [code = INFLUENZA Medical Ce nter VACCINE (#1)] Future Scheduled 2020-11-27 INFLUENZA VACCINE (#1) [facility] 00:00:00 [code = INFLUENZA Medical Ce nter VACCINE (#1)] Future Scheduled 2020-11-27 INFLUENZA VACCINE (#1) [facility] 00:00:00 [code = INFLUENZA Medical Ce nter VACCINE (#1)] Future Scheduled 2020-11-27 INFLUENZA VACCINE (#1) [facility] 00:00:00 [code = INFLUENZA Medical Ce nter VACCINE (#1)] Future Scheduled 2020-06-[address] [facility]00 [facility] Medical Center (procedure) [code = 87014643] Future Scheduled 2020-06-[address] [facility] (procedure) [code = 33653227] Future Scheduled 2020-06-[address] [facility] (procedure) [code = 77826196] Future Scheduled 2020-06-[address] [facility] measurement [facility] (procedure) [code = 89208630] Future Scheduled 2020-06-[address] [facility] measurement [facility] (procedure) [code = 36749289] Future Scheduled 2020-06-[address] [facility] (procedure) [code = 00647792] Future Scheduled 2020-06-[address] [facility] measurement [facility] (procedure) [code = 63325200] Future Scheduled 2018-06-11 Urine screening for [facility] 00:00:00 protein (procedure) Medical Center [code = 102427689] Future Scheduled 2018-06-11 Urine screening [facility] 00:00:00 protein (procedure) Medical Center [code = 196787167] Future Scheduled 2018-06-11 Urine screening for [facility] 00:00:00 protein (procedure) Medical Center [code = 919774051] Future Scheduled 2018-06-11 Urine screening [facility] 00:00:00 protein (procedure) Medical Center [code = 545303595] Future Scheduled 2018-06-11 Urine screening [facility] 00:00:00 protein (procedure) Medical Center [code = 746079726] Future Scheduled 2018-06-11 Urine screening [facility] 00:00:00 protein (procedure) Medical Center [code = 753461201] Future Scheduled 2018-06-11 Urine screening [facility] 00:00:00 protein (procedure) [facility] [code = 278739983] Future Scheduled 1992 DTAP/TDAP/TD VACCINES [facility] 00:00:00 (1 - Tdap) [code = Medical C enter DTAP/TDAP/TD VACCINES (1 - Tdap)] Future Scheduled 1992 DTAP/TDAP/TD [facility]ACCINES [facility] 00:00:00 (1 - Tdap) [code = Medical C enter DTAP/TDAP/TD VACCINES (1 - Tdap)] Future Scheduled 1992 DTAP/TDAP/TD [facility]ACCINES [facility] 00:00:00 (1 - Tdap) [code = Medical C enter DTAP/TDAP/TD VACCINES (1 - Tdap)] Future Scheduled 1992 DTAP/TDAP/TD [facility]ACCINES [facility] 00:00:00 (1 - Tdap) [code = Medical C enter DTAP/TDAP/TD VACCINES (1 - Tdap)] Future Scheduled 1992 DTAP/TDAP/TD [facility]ACCINES [facility] 00:00:00 (1 - Tdap) [code = Medical C enter DTAP/TDAP/TD VACCINES (1 - Tdap)] Future Scheduled 1992 DTAP/TDAP/TD [facility]ACCINES [facility] 00:00:00 (1 - Tdap) [code = Medical C enter DTAP/TDAP/TD VACCINES (1 - Tdap)] Future Scheduled 1992 DTAP/TDAP/TD VACCINES [facility] 00:00:00 (1 - Tdap) [code = Medical C enter DTAP/TDAP/TD VACCINES (1 - Tdap)] Future Scheduled 1985 COVID-19 VACCINE (1) [facility] 00:00:00 [code = COVID-[address] VACCINE (1)] Future Scheduled 1985 COVID-19 VACCINE (1) [facility] 00:00:00 [code = COVID-[address] VACCINE (1)] Future Scheduled 1985 COVID-19 VACCINE (1) [facility] 00:00:00 [code = COVID-[address] VACCINE (1)] Future Scheduled 1985 COVID-19 VACCINE (1) [facility] 00:00:00 [code = COVID-[address] VACCINE (1)] Future Scheduled 1985 COVID-19 VACCINE (1) [facility] 00:00:00 [code = COVID-[address] VACCINE (1)] Future Scheduled 1985 COVID-19 VACCINE (1) [facility] 00:00:00 [code = COVID-[address] VACCINE (1)] Future Scheduled 1985 COVID-19 VACCINE (1) [facility] 00:00:00 [code = COVID-[address] VACCINE (1)] Future Scheduled 1983-12-[address] DI[address] EXAM [facility] 00:00:00 [code = DIABETIC EYE Medical Center EXAM] Future Scheduled 1983-12-[address] DI[address]YE EXAM [facility] 00:00:00 [code = DIABETIC EYE Medical Center EXAM] Future Scheduled 1983-12-[address] DI[address] EYE EXAM [facility] 00:00:00 [code = DIABETIC EYE Medical Center EXAM] Future Scheduled 1983-12-[address] DI[address] EYE EXAM [facility] 00:00:00 [code = DIABETIC EYE Medical Center EXAM] Future Scheduled 1983-12-[address] DI[address] EYE EXAM [facility] 00:00:00 [code = DIABETIC EYE Medical Center EXAM] Future Scheduled 1983-12-[address] DIAB[address] EYE EXAM [facility] 00:00:00 [code = DIABETIC EYE Medical Center EXAM] Future Scheduled 1983-12-[address] DIAB[address] EYE EXAM [facility] 00:00:00 [code = DIABETIC EYE Medical Center EXAM] Future Scheduled 1979-12-[address] [facility] 00:00:00 0-64 YRS (1 of 1 - Medical C enter PPSV23) [code = PNEUMOCOCCAL VACCINE 0-64 YRS (1 of 1 - PPSV23)] Future Scheduled 1979-12-[address] [facility] 00:00:00 0-64 YRS (1 of 1 - Medical C enter PPSV23) [code = PNEUMOCOCCAL VACCINE 0-64 YRS (1 of 1 - PPSV23)] Future Scheduled 1979-12-[address] [facility] 00:00:00 0-64 YRS (1 of 1 - Medical C enter PPSV23) [code = PNEUMOCOCCAL VACCINE 0-64 YRS (1 of 1 - PPSV23)] Future Scheduled 1979-12-[address] [facility] 00:00:00 0-64 YRS (1 of 1 - Medical C enter PPSV23) [code = PNEUMOCOCCAL VACCINE 0-64 YRS (1 of 1 - PPSV23)] Future Scheduled 1979-12-[address] [facility] 00:00:00 0-64 YRS (1 of 1 - Medical C enter PPSV23) [code = PNEUMOCOCCAL VACCINE 0-64 YRS (1 of 1 - PPSV23)] Future Scheduled 1979-12-[address] [facility] 00:00:00 0-64 YRS (1 of 1 - Medical C enter PPSV23) [code = PNEUMOCOCCAL VACCINE 0-64 YRS (1 of 1 - PPSV23)] Future Scheduled 1979-12-[address] [facility] 00:00:00 0-64 YRS (1 of 2 - Medical C enter PPSV23) [code = PNEUMOCOCCAL VACCINE 0-64 YRS (1 of 2 - PPSV23)] Future Scheduled [address] [facility] 00:[facility]:00 malignant ne[facility] of [facility] colon (procedure) [code = 514708508] Future Scheduled [address] [facility] 00:00:00 [facility] colon (procedure) [code = 524857005] Future Scheduled [address] [facility] 00:00:00 malignant [facility] colon (procedure) [code = 496198391] Future Scheduled [address] [facility] 00:00:00 malignant ne[facility] of [facility] colon (procedure) [code = 438706922] Future Scheduled [address] [facility] 00:00:00 malignant ne[facility] of [facility] colon (procedure) [code = 261400583] Future Scheduled [address] [facility] 00:00:00 malignant neoplasm of [facility] colon (procedure) [code = 559185331] Future Scheduled [address] [facility] 00:00:00 malignant neoplasm of [facility] colon (procedure) [code = 795676515] Encounters Start End Encounter Admission Attending Care Care Encounter Source Date/Time Date/Time Type Type Clinicians Facility Department ID 2021-07-10 Outpatient [facility] [id number] Common 08:51:03 [id number] [facility] 2021-06-20 Outpatient [facility] [id number] [place] 17:29:31 [id number] [facility] 2020-05-24 Inpatient [facility] [id number] [facility] 09[facility]38:[facility] -[id number] [facility] 2020-05-10 Inpatient [facility] [id number] [facility] 14:02:00 -[id number] [facility] 2021-08-05 2021-08-05 Outpatient RIMA [facility] [id number] [facility] 10:43:00 10:43:00 DINORA [facility] 2021-08-05 2021-08-05 Outpatient DIANE [facility] [id number] [facility] 07:10:00 07:10:00 MIRTA [facility] 2021-05-05 2021-06-05 Outpatient Neida NGUYEN [facility] [id number] [facility] 09:28:00 23:59:00 [facility] 2021-05-20 2021-05-20 Outpatient YANDY LAWSON [facility] [id number] [facility] 15:35:00 15:35:00 [facility] 2021-05-20 2021-05-20 Outpatient YANDY LAWSON [facility] [id number] [facility] 15:35:00 15:35:00 e2-0td9-76p be3-4b30-b [facility] [id number] [id number] 2021-05-16 2021-05-16 Outpatient YANDY LAWSON [facility] [id number] [facility] 12:33:00 12:33:00 ealt 2021-05-16 2021-05-16 Outpatient YANDY LAWSON [facility] [id number] Access 12:33:00 12:33:00 e2-8al4-17j [id number] ealt [id number] 0f4 [id number] 2021-05-15 2021-05-15 Outpatient YANDY LAWSON [facility] [id number] Access 08:15:00 08:15:00 ealt 2021-05-15 2021-05-15 Outpatient YANDY LAWSON [facility] [id number] Access 08:15:00 08:15:00 e2-5cj5-41m [id number] [facility] [id number] 0f4 [id number] 2021-05-14 2021-05-14 Outpatient SHELBY, [facility] [id number] Access 08:39:00 08:39:00 SAMANTHA [facility] 2021-05-14 2021-05-14 [facility] [id number] Access 08:39:00 08:39:00 SAMANTHA e2-4yw8-81c [id number] [facility] [id number] 0f4 [id number] 2021-05-13 2021-05-13 Outpatient CONTRERAS, [facility] [id number] Access 09:00:00 09:00:00 MIRTA [facility] 2021-05-13 2021-05-13 OFFICE/OUT CONTRERAS, [facility] [id number] Access 09:00:00 09:00:00 PATIENT MIRTA 22-4926-a4f 0af-4e30-a [facility] VISIT EST [id number] alexander [id number] 2021-05-12 2021-05-12 Outpatient CONTRERAS, [facility] [id number] [facility] 07:26:00 07:26:00 [facility] 2021-05-12 2021-05-12 Outpatient DIANE, [facility] [id number] [facility] 07:26:00 07:26:00 MIRTA [id number] [facility] [id number] 5253-02-07 2021-05-05 Outpatient Neida NGUYEN, [facility] RAD [id number] [facility] 10:26:00 23:59:00 [facility] 2021-05-01 2021-05-01 Outpatient DIANE, [facility] [id number] [facility] 11:26:00 11:26:00 [facility] 2021-05-01 2021-05-01 Outpatient DIANE, [facility] [id number] Access 11:26:00 11:26:00 MIRTA 22-4926-a4f [id number]-0rp6-h ealt [id number] alexander [id number] 2021-04-02 2021-04-02 Outpatient DIANE, [facility] [id number] [facility] 11:59:00 11:59:00 [facility] 2021-04-02 2021-04-02 Outpatient DIANE, [facility] [id number] [facility] 11:59:00 11:59:00 MIRTA 22-4926-a4f [id number] ealt f-[id number] alexander [id number] 2021-03-27 2021-03-27 Outpatient DIANE, [facility] [id number] [facility] 08:12:00 08:12:00 [facility] 2021-03-27 2021-03-27 [facility] [id number] Access 08:12:00 08:12:00 MIRTA 22-4926-a4f [id number]-[id number] ealth [id number] alexander [id number] 2021-02-05 2021-02-05 Outpatient NURSE, [facility] [id number] [facility] 08:34:00 08:34:00 NURSE [facility] 2021-02-05 2021-02-05 Outpatient NURSE, [facility] [id number] [facility] 08:34:00 08:34:00 NURSE 22-4926-a4f [id number] [facility] [id number] alexander [id number] [id number] 2021-01-31 Outpatient DIANE, [facility] [id number] [facility] 12:07:00 12:07:00 MIRTA [facility] 2021-01-31 2021-01-31 Outpatient DIANE, [facility] [id number] [facility] 12:07:00 12:07:00 MIRTA e2-1om5-08y [id number] [facility] [id number] 0f4 [id number] 2021-01-29 2021-01-29 Outpatient DIANE, [facility] [id number] [facility] 10:00:00 10:00:00 MIRTA [facility] 2021-01-29 2021-01-29 OFFICE/OUT DIANE, [facility] [id number] [facility] 10:00:00 10:00:00 PATIENT MIRTA 22-4926-a4f [id number]-a [facility] VISIT [facility] f-[id number] alexander [id number] 2021-01-06 2021-01-06 Outpatient OSEI, [facility] [id number] [facility] 10:24:00 10:24:00 JOSEE [facility] 2021-01-06 2021-01-06 Outpatient OSEI, [facility] [id number] [facility] 10:24:00 10:24:00 JOSEE 22-4926-a4f [id number] [facility] [id number] alexander [id number] 2020-12-11 2020-12-11 Outpatient OSEI, [facility] [id number] [facility] 14:09:00 14:09:00 JOSEE [facility] 2020-12-11 2020-12-11 Outpatient OSEI, [facility] [id number] [facility] 14:09:00 14:09:00 JOSEE e2-9li6-11d da5-4cb6-9 [facility] [id number] 0f4 [id number] 2020-12-11 2020-12-11 Outpatient NURSE, [facility] [id number] Access 13:49:00 13:49:00 NURSE [facility] 2020-12-11 2020-12-11 Outpatient NURSE, [facility] [id number] Access 13:49:00 13:49:00 NURSE 22-4926-a4f [id number] [facility] [id number] alexander [id number] 2020-12-06 2020-12-06 Outpatient DIANE, [facility] [id number] [facility] 10:17:00 10:17:00 MIRTA [facility] 2020-12-06 2020-12-06 Outpatient DIANE, [facility] [id number] Access 10:17:00 10:17:00 MIRTA 22-4926-a4f [id number] [facility] [id number] alexander [id number] 2020-11-04 2020-12-05 Outpatient Neida NGUYEN [facility] [id number] [facility] 09:15:00 23:59:00 [facility] 2020-12-03 2020-12-03 Outpatient DIANE, [facility] [id number] [facility] 09:00:00 09:00:00 [facility] 2020-12-03 2020-12-03 OFFICE/OUT DIANE, [facility] [id number] [facility] 09:00:00 09:00:00 PATIENT MIRTA 22-4926-a4f cc3-429e-b ealt VISIT EST f-[id number] alexander [id number] 5586-09-07 2020-12-03 Outpatient CONTRERAS, [facility] [id number] [facility] 00:00:00 00:00:00 [facility] 2020-12-03 2020-12-03 Outpatient DIANE, [facility] [id number] [facility] 00:00:00 00:00:00 MIRTA [id number]-[id number] [id number]-z ealt [id number] 27a [id number] 2020-10-07 2020-11-06 Outpatient Neida NGUYEN [facility] WC [id number] [facility] 08:58:00 15:34:00 [facility] 2020-11-02 2020-11-02 Outpatient DIANE, [facility] [id number] [facility] 10:08:00 10:08:00 [facility] 2020-11-02 2020-11-02 Outpatient DIANE, [facility] [id number] Access 10:08:00 10:08:00 MIRTA -4926-a4f 3ac-[id number] ealth [id number] laexander acf95f 2020-10-29 2020-10-29 Outpatient Neida CONTRERAS [facility] RAD [id number] [facility] 10:49:00 23:59:00 [facility] 2020-10-29 2020-10-29 Outpatient CONTRERAS, [facility] [id number] [facility] 08:30:00 08:30:00 [facility] 2020-10-29 2020-10-29 OFFICE/OUT CONTRERAS [facility] [id number] [facility] 08:30:00 08:30:00 PATIENT MIRTA 22-4926-a4f [id number] ealt VISIT EST f-[id number] alexander [id number] 2020-10-01 2020-10-01 Outpatient DIANE, [facility] [id number] [facility] 13:25:00 13:25:00 MIRTA [facility] 2020-10-01 2020-10-01 Outpatient DIANE [facility] [id number] [facility] 13:25:00 13:25:00 MIRTA 22-4926-a4f bbe-4dcc-9 [facility] f-[id number] alexander [id number] 1231-06-27 2020-09-29 [facility] ER David Riddle [facility] [id number] [facility] 06:13:00 13:20:00 Encounter Gretchen Hensley mohamud Lugo [facility] 2020-09-26 2020-09-26 Surgery Patrick [facility] [id number] [facility] 07:00:00 08:30:00 [facility] 2020-09-26 2020-09-26 Anesthesia Joanie, [facility] [id number] 07:12:00 08:20:00 Event [facility] 2020-09-22 2020-09-22 Emergency ER [facility] [id number] [facility] 06:09:00 06:09:00 2020-09-22 2020-09-22 Travel [facility] [id number] [facility] 00:[facility]00 00:00:00 [facility] 2020-09-17 2020-09-17 Outpatient DIANE, [facility] [id number] Access 10:30:00 10:30:00 MIRTA [facility] 2020-09-17 2020-09-17 OFFICE/OUT DIANE [facility] [id number] Access 10:30:00 10:30:00 PATIENT MIRTA 22-4926-a4f [id number] [facility] VISIT EST f-[id number] alexander [id number] 2020-08-19 2020-08-19 Outpatient ZOE, [facility] [id number] Access 16:36:00 16:36:00 NAIF [facility] 2020-08-19 2020-08-[address] [facility], [facility] [id number] Access 16:36:00 16:36:00 NAIF 22-4926-a4f 77c-448d- a [facility] [id number] alexander [id number] 2020-08-15 2020-08-15 Outpatient ORI, [facility] [id number] Access 16:00:00 16:00:00 NAIF [facility] 2020-08-15 2020-08-15 OFFICE/OUT [facility], [facility] [id number] Access 16:00:00 16:00:00 PATIENT NAIF 22-4926-a4f [id number]- 8 [facility] VISIT [facility] f-[id number] alexander [id number] 2020-07-04 2020-07-[address] [facility], [facility] [id number] [facility] 08:04:00 08:04:00 NAIF [facility] 2020-07-04 2020-07-[address] [facility], [facility] [id number] Access 08:04:00 08:04:00 NAIF 22-4926-a4f [id number]- 8 [facility] [id number] alexander [id number] 2020-06-28 2020-06-28 Outpatient NURSE, [facility] [id number] Access 09:35:00 09:35:00 NURSE [facility] 2020-06-28 2020-06-28 Outpatient NURSE, [facility] [id number] Access 09:35:00 09:35:00 NURSE [id number] [facility] [id number] de3 afab8a 2020-06-19 2020-06-[address] [facility] [id number] Access 10:00:00 10:00:00 NAIF [facility] 2020-06-19 2020-06-[address] [facility], [facility] [id number] Access 10:00:00 10:00:00 NAIF [id number]- a [facility] [id number] alexander [id number] 2020-05-09 2020-05-[address] [facility] [id number] Access 12:10:00 12:10:00 NAIF [facility] 2020-05-09 2020-05-[address] [facility], [facility] [id number] Access 12:10:00 12:10:00 NAIF Sameer-4926-a4f [id number]- 9 [facility] [id number] alexander [id number] 2020-04-30 2020-04-30 Emergency ER [facility] [id number] [facility] 18:09:00 19:41:[address] [facility] 2020-04-30 2020-04-30 Emergency ER [facility] [id number] [facility] 17:53:00 17:53:00 2020-04-30 2020-04-30 Travel [facility] [id number] [facility] 00:00:00 [facility] 2020-04-26 2020-04-[address] [facility] [id number] Access 10:00:00 10:00:00 NAIF [facility] 2020-04-26 2020-04-26 OFFICE/OUT [facility], [facility] [id number] Access 10:00:00 10:00:00 PATIENT NAIF 22-4926-a4f [id number]-[id number]- a [facility] VISIT [facility] [id number] alexander [id number] 2020-04-22 2020-04-[address] [facility] [id number] Access 14:45:00 14:45:00 NAIF tapia 2020-04-22 2020-04-22 Outpatient OMORI, [facility] [id number] [facility] 14:45:00 14:45:00 NAIF 22-4926-a4f 332-4409- b [facility] f-[id number] alexander [id number] 2020-04-22 2020-04-22 Outpatient IRIZARRY, [facility] [id number] [facility] 12:41:00 12:41:00 SUKUMAR ealt 2020-04-22 2020-04-22 Outpatient IRIZARRY, [facility] [id number] Access[facility] 12:41:00 12:41:00 SUKUMAR [id number] [facility] [id number] 2020-04-18 2020-04-18 Outpatient OMORI, [facility] [id number] [facility] 13:20:00 13:20:00 NAIF tapia 2020-04-18 2020-04-18 Outpatient OMORI, [facility] [id number] n5ve4-4 [facility] 13:20:00 13:20:00 NAIF 22-4926-a4f s34-7kd4- 9 [facility] f-[id number] i81-173910 alexander 117a2b 2020-04-09 2020-04-09 Outpatient OMORI, [facility] [id number] [facility] 09:46:00 09:46:00 NAIF tapia 2020-04-09 2020-04-09 Outpatient OMORI, [facility] zur860gj-5s 246 110b9-e [facility] 09:46:00 09:46:00 NAIF 22-4926-a4f 7fb-45a5- 8 [facility] f-[id number] eb3-4da5a2 alexander dfcadb 2020-03-30 2020-04-06 [facility] Tyshawn Serra [facility] [id number] [facility] 19:31:00 13:42:00 [facility] Abel Alatorre Surinder M edical Shieh, Matthew C [place] 2020-04-04 2020-04-04 Outpatient ZOE, [facility] [id number] [facility] 14:43:00 14:43:00 NAIF [facility] 2020-04-04 2020-04-04 Outpatient ZOE, [facility] gpp679cv-6z 1fd h4676-u [facility] 14:43:00 14:43:00 NAIF 22-4926-a4f s6i-6n58- 9 [facility] f-[id number] 186-296d9f alexander 6cbd5c 2020-04-01 2020-04-01 Anesthesia Jose Raul, [facility] [id number] [facility] 11:51:00 12:50:00 Event [facility] 2020-04-01 2020-04-01 Surgery Patrick [facility] [id number] [facility] 11:30:00 12:45:00 [facility] 2020-04-01 2020-04-01 Orders [facility] [id number] 00:00:00 00:00:00 Only [facility] 2020-03-30 2020-03-30 Emergency ER [facility] Emergency [id number] [facility] 19:22:00 19:22:00 2020-03-30 2020-03-30 Travel [facility] [id number] [facility] 00:[facility] 00:00:00 [facility] 2020-03-19 2020-03-20 Emergency ER Venkatesh [facility] [id number] 23:25:00 02:51:[address] [facility] 2020-03-19 2020-03-19 Emergency ER [facility] Emergency [id number] [facility] 23:15:00 23:15:00 2020-03-19 2020-03-19 Travel [facility] [id number] [facility] 00:[facility] 00:00:00 [facility] 2020-03-08 2020-03-08 Outpatient DINH CALVO [facility] [id number] Access 12:03:00 12:03:00 [facility] 2020-03-08 2020-03-08 Outpatient DINH CALVO [facility] 1fv1x7r2-1d cs42jogy-c [facility] 12:03:00 12:03:00 e2-3yo3-70l t81-9n11-j [facility] 0-xq1mab190 9q5-345g1w 0f4 74b4d5 2020-03-06 2020-03-06 Outpatient OMORI, [facility] [id number] [facility] 15:00:00 15:00:00 NAIF [facility] 2020-03-06 2020-03-06 OFFICE/OUT OMORI, [facility] slo980hz-7u 35b 30edf-4 [facility] 15:00:00 15:00:00 PATIENT NAIF Bravo4926-a4f 79d-4bf4- 8 ealt VISIT EST f-[id number] 7e7-ld2832 alexander k3123v 2019 2019 Emergency ER [facility] Emergency [id number] [facility] 07:11:00 07:11:00 2019-11-20 2019-11-[address] [facility], [facility] [id number] [facility] 10:30:00 10:30:00 NAIF [facility] 2019-11-20 2019-11-[address] [facility] 71q9k-7 [facility] 10:30:00 10:30:00 NAIF Bravo4926-a4f ea8-46d7- a [facility] f-[id number] k03-e2zjd6 alexander fh0522 2019-11-09 2019-11-09 Outpatient OMORI, [facility] [id number] [facility] 16:15:00 16:15:00 NAIF [facility] 2019-11-09 2019-11-09 OFFICE/OUT [facility], [facility] rrw770au-4f f4c 2m169-b [facility] 16:15:00 16:15:00 PATIENT NAIF Bravo4926-a4f q3v-5v08- 8 ealt VISIT EST f-[id number] 571-9a2766 alexander 7ti324 2019-09-28 2019-09-28 Outpatient OMORI, [facility] wjh784ay-7w 0d0 d0366-g [facility] 13:21:00 13:21:00 NAIF Bravo4926-a4f 189-4af1- 9 ealt f-25210156r 825-785777 alexander 58991v 2019-09-28 2019-09-28 Outpatient DINH CALVO [facility] 8hi9f4b5-8t 31ys380p-l [facility] 10:54:00 10:54:00 e2-8cl8-30p 730-4d70-a ealth 0-qx5srt596 7ef-ba6cbd 0f4 38v636 2019-07-15 2019-07-15 Emergency [facility] [id number] [facility] 22:19:00 22:19:00 [id number] 2019-07-03 2019-07-03 OFFICE/OUT OMORI, [facility] ctl970as-6g 81c 140c1-u [facility] 10:30:00 10:30:00 PATIENT NAIF Bravo4926-a4f 8cf-4b4d- b ealt VISIT EST f-[id number] 1v1-grt8om alexander e6u485 2019-05-09 2019-05-09 Outpatient OMORI, [facility] ynl116yz-4p 405 q265a-t [facility] 08:16:00 08:16:00 NAIF Bravo4926-a4f l9z-08h9- b ealt f-30567597w 12b-ff4e3d alexander ada41d 2019-05-01 2019-05-01 Outpatient NURSE, [facility] gco176dh-5r 07a d6g4o-2 [facility] 09:27:00 09:27:00 NURSE Shelly4926-a4f eab-46d9-9 ealt f-49928956c b07-96p88l alexander 3d7d99 2019-04-11 2019-04-11 Outpatient OMORI, [facility] mbk606ho-0g 608 z1a75-s [facility] 17:52:00 17:52:00 NAIF Bravo4926-a4f d04-4m8x- 9 ealt f-67898160t 1ed-4c31d3 alexander a7dbdd 2019-04-06 2019-04-06 Outpatient OMORI, [facility] ebh318gm-6d cfd 46915-0 [facility] 17:33:00 17:33:00 NAIF Bravo4926-a4f 877-42c1- a [facility] f-27599275p a24-96676c alexander 78dc28 2019-04-04 2019-04-04 OFFICE/OUT ZOE, [facility] jas208ep-0m 0a8 8h28y-5 [facility] 14:30:00 14:30:00 PATIENT NAIF Bravo4926-a4f lyudmila-46ec- b [facility] VISIT [facility] f-[id number] fd1-2857e5 alexander ab27a1 2018-09-07 2018-09-07 Outpatient ZOE, [facility] zuw118ls-1r 7e5 64fea-3 [facility] 00:00:00 00:00:00 NAIF Bravo4926-a4f 2ee-4361- b [facility] f-[id number] f5y-7k4l42 alexander 29818u 2018-09-06 2018-09-06 Outpatient ZOE, [facility] vhs117wc-4c 69a 4q7a1-1 [facility] 09:34:00 09:34:00 NAIF Bravo4926-a4f cf2-4291- 9 [facility] f-[id number] db4-f91ed2 alexander 84f5b6 2018-07-26 2018-07-26 Outpatient [facility] [id number] Access 00:00:00 00:00:00 H, PROVIDER ea lth 2018-07-26 2018-07-26 Outpatient [facility] 2je0n7j6-7g 7n87cs92-8 Access 00:00:00 00:00:00 H, PROVIDER e2-5gc3-41z 24b-42 3c-8 [facility] 0-gy7acy762 036-5ea1f1 0f4 dc6a94 2018-07-26 2018-07-26 Outpatient CONTRERAS, [facility] ynw855jk-7f 7 xa7tx04-3 [facility] 00:00:00 00:00:00 MIRTA Bravo4926-a4f l54-45n3-a [facility] f-[id number] o38-2d5e26 alexander d785c1 2018-07-26 2018-07-26 Outpatient OMORI, [facility] 6oa4b0w1-6p 877 sy488-9 [facility] 00:00:00 00:00:00 NAIF pierre-4uo7-11o 397-493a- a [facility] 0-nu7pjx012 1t5-w9cp0u 0f4 02184w 2018-07-26 2018-07-26 Outpatient OMORI, [facility] aik629yl-1d 499 q4n27-4 [facility] 00:00:00 00:00:00 NAIF Estrella-4926-a4f ba6-4f54- 8 ealt f-41285721t 6v6-t4v07y alexander a45b7b 2018-07-25 2018-07-25 Outpatient OMORI, [facility] aqd615pu-3e 62b bbb95-e [facility] 00:00:00 00:00:00 NAIF 22-4926-a4f q50-3184- 8 ealt f-60782155z cbf-5b3a7f alexander t6728i 2018-07-22 2018-07-22 Outpatient [facility] [id number] [facility] 00:00:00 00:00:00 H, PROVIDER ea lth 2018-07-22 2018-07-22 Outpatient [facility] 6mj6i8s4-3m 9tey9zz4-9 [facility] 00:00:00 00:00:00 H, PROVIDER gabby-9qf0-11f 1b8-4b 5b-b [facility] 0-tq8bdw131 54b-899e22 0f4 [id number] 1238-04-26 2018-07-22 Outpatient OMORI, [facility] cyk352pk-9r 44d 87p26-v [facility] 00:00:00 00:00:00 NAIF 22-4926-a4f 8cb-4f46- b ealth f-23835873w m14-623z7u alexander 871f2f 2018-07-22 2018-07-22 Outpatient CONTRERAS, [facility] wtt259sp-0n c 1009y0j-9 [facility] 00:00:00 00:00:00 MIRTA 22-4926-a4f p89-6wc5-f ealth f-98496350j 39a-4o5211 alexander cfbbac 2018-06-28 2018-06-28 Outpatient [facility] [id number] [facility] 00:00:00 00:00:00 H, PROVIDER casey lala 2018-06-28 2018-06-28 Outpatient [facility] 8kx4u3h0-4o 79409zj1-e [facility] 00:00:00 00:00:00 H, PROVIDER april2nz1-96l 17d-4e 23-9 [facility] 0-ci5jqj508 046-469fb5 0f4 bc45ce 2018-03-30 2018-03-30 Outpatient [facility] [id number] [facility] 00:00:00 00:00:00 H, PROVIDER [facility] 2018-03-30 2018-03-30 Outpatient [facility] 2zx3e3i4-3l o18z6p89-1 [facility] 00:00:00 00:00:00 H, PROVIDER april5ox8-44p 710-43 22-8 [facility] 0-tw7khf249 1k0-q8nz87 0f4 7d1bee 2018-03-30 2018-03-30 Outpatient CONTRERAS, [facility] gok464cw-5j 1 f9he10a-2 [facility] 00:00:00 00:00:00 MIRTA 22-4926-a4f 56a-40cb-a [facility] f-[id number] l31-614q00 alexander 234286 0185-01-02 2018-03-30 Outpatient OMORI, [facility] llq400cx-6c 448 3e4fq-a [facility] 00:00:00 00:00:00 NAIF 22-4926-a4f 520-4c13- 8 [facility] f-[id number] b25-1lr4rd alexander 9b9a27 2017-12-28 2017-12-28 Outpatient [facility] [id number] [facility] 00:00:00 00:00:00 H, PROVIDER casey molina 2017-12-28 2017-12-28 Outpatient [facility] 6hb6q7f7-4z 2931fvt9-2 [facility] 00:00:00 00:00:00 H, PROVIDER april7yh4-11w bed-49 71-9 ealt 0-ce9lyt538 255-19571z 0f4 06e2a8 2017-12-27 2017-12-27 Outpatient [facility] [id number] Access 00:00:00 00:00:00 H, PROVIDER [facility] 2017-12-27 2017-12-27 Outpatient [facility] 7ud4b9r4-7w n5022dow-7 [facility] 00:00:00 00:00:00 H, PROVIDER e2-0cu9-26b 1d0-43 b0-a ealt 0-sq7ahw729 44c-ecfa29 0f4 4cm060 2017-12-20 2017-12-20 Outpatient CONTRERAS, [facility] tge390uw-2j 9 e8a2361-9 [facility] 08:48:00 08:48:00 MIRTA 22-4926-a4f 224-45e3-9 ealt f-74172358d fc6-096b3d alexander 040c9a 2017-12-20 2017-12-20 Outpatient [facility] [id number] Access 00:00:00 00:00:00 H, PROVIDER [facility] 2017-12-20 2017-12-20 Outpatient [facility] 0oo1p1y9-1p 1wrmk27h-2 [facility] 00:00:00 00:00:00 H, PROVIDER e2-2nh0-59n b2c-4b 7d-b [facility] 0-kg5ojh596 d59-61r97d 0f4 c568b3 2017-12-20 2017-12-20 Outpatient IRIZARRY, [facility] dyc000dx-5p 79a 86640-f [facility] 00:00:00 00:00:00 KATELINE 22-4926-a4f eae-4c31- b ealth f-05762094r 520-uv2483 alexander 0a3c1f 2017-12-20 2017-12-20 Outpatient OMORI, [facility] qrb101fb-8v 2e3 xgs6x-2 [facility] 00:00:00 00:00:00 NAIF 22-4926-a4f da8-4f41- a ealth f-38276977o 12d-3adf05 alexander 0d5ff7 2017-12-20 2017-12-20 Outpatient ENRIQUE, [facility] ncc050sx-9d a7c 6u351-k [facility] 00:00:00 00:00:00 GAYPAULRI 22-4926-a4f 9o7-3z2k-4 ealth f-64758108e 1c0-c89p34 alexander 4b61d6 2017-12-20 2017-12-20 Outpatient JONAS, [facility] suc013ep-3s cf 29gnz7-d [facility] 00:00:00 00:00:00 MAEVE 22-4926-a4f 051-44b8-b ealth f-41017151y 3i5-0f6951 alexander aee2d5 2017-07-14 2017-07-14 Outpatient [facility] [id number] [facility] 00:00:00 00:00:00 H, PROVIDER ea lth 2017-07-14 2017-07-14 Outpatient [facility] 6sk7g6o3-7k yb1k5qe9-l [facility] 00:00:00 00:00:00 H, PROVIDER e2-9cm9-51l 109-47 80-a ealth 0-vn6pxc386 784-x14140 0f4 01e0fc 2017-07-14 2017-07-14 Outpatient [facility] 1bq6k0e0-8f f0f 3j77p-j [facility] 00:00:00 00:00:00 e2-1zk8-23t 98a-4568-b ealth 0-tf8kib653 001-941db6 0f4 9c42e9 2017-07-14 2017-07-14 Outpatient ENRIQUE, [facility] 1ay4a7p1-3o 7d1 z3ini-3 [facility] 00:00:00 00:00:00 GAYTARI e2-5tq5-87x 7cb-4bf9-9 ealth 0-ex5wmp812 q67-2207e0 0f4 963413 7883-03-16 2017-06-11 Outpatient ZOE, [facility] hov170ud-6a ded ib906-4 [facility] 00:00:00 00:00:00 NAIF Estrella-4926-a4f 849-421a- a ealth f-54217203c 11b-54fdd4 alexander 1p8742 2017-06-10 2017-06-10 Outpatient [facility] [id number] Access 00:00:00 00:00:00 H, PROVIDER ea lth 2017-06-10 2017-06-10 Outpatient [facility] 8jx9q8a2-4k x2dqs6xh-2 [facility] 00:00:00 00:00:00 H, PROVIDER e2-6sg7-79d a95-4d 18-8 ealt 0-yx0cnj689 67d-88e2c2 0f4 2eef4c 2017-06-10 2017-06-10 Outpatient DIANE, [facility] ibn166vo-6f e ol5f4pq-5 [facility] 00:00:00 00:00:00 MIRTA 22-4926-a4f 3ac-43d9-9 ealth f-36287929c 6de-94q344 alexander ceaffe 2017-06-10 2017-06-10 Outpatient EM, [facility] ocp459tk-5n 27 j0jvrb-6 [facility] 00:00:00 00:00:00 VITA 22-4926-a4f 0ec-4f3f -8 ealth f-20016972e 9n3-4a7g46 alexander 12w547 2017-06-10 2017-06-10 Outpatient OMORI, [facility] kpl314fh-9h 6d7 ve394-a [facility] 00:00:00 00:00:00 NAIF 22-4926-a4f j2j-8213- b ealth f-19975829u 499-fe056k alexander jkk413 2017-04-09 2017-04-09 Outpatient OMORI, [facility] bfq020jr-1g a22 2zgo3-1 [facility] 13:28:00 13:28:00 NAIF 22-4926-a4f 27b-4f1f- 8 ealth f-53022134y 3ef-fa2b8f alexander 22948r 2017-04-09 2017-04-09 Outpatient [facility] [id number] Access 00:00:00 00:00:00 H, PROVIDER [facility]y [facility] 2017-04-09 2017-04-09 Outpatient [facility] 7pn2a8t6-3k dl76795a-9 [facility] 00:00:00 00:00:00 H, PROVIDER e2-3tt1-10l acc-4b a3-b ealt 0-uf2zxe985 n02-75ek7g 0f4 2m0912 2017-04-09 2017-04-09 Outpatient CONTRERAS, [facility] tqs197ct-2s d 7240vs2-0 [facility] 00:00:00 00:00:00 MIRTA 22-4926-a4f be7-40fa-9 ealth f-85503335e fad-beba5c alexander 745e5a 2017-03-30 2017-03-30 Outpatient [facility] [id number] Access 00:00:00 00:00:00 H, PROVIDER csaey [facility] 2017-03-30 2017-03-30 Outpatient [facility] 6ts9o5k9-7p n8c7t687-h Access 00:00:00 00:00:00 H, PROVIDER e2-1rb9-19o e7f-41 b3-8 ealt 0-ct7qzn415 0ab-1lq026 0f4 5ba25a 2017-02-09 2017-02-09 Outpatient [facility] [id number] Access 00:00:00 00:00:00 H, PROVIDER [facility] 2017-02-09 2017-02-09 Outpatient [facility] 9te6j6e2-8a 81g0we8j-8 [facility] 00:00:00 00:00:00 H, PROVIDER e2-7fl2-16l eed-49 91-9 ealt 0-rx9uiy207 725-57830g 0f4 de8ac2 2017-02-09 2017-02-09 Outpatient OMORI, [facility] cxr855nf-1o b35 eo849-6 [facility] 00:00:00 00:00:00 NAIF 22-4926-a4f h94-6u55- a ealt f-00174162z a82-78q3r3 alexander 88c1fc 2017-02-09 2017-02-09 Outpatient DIANE, [facility] fls501bd-8o d 02e4y77-i [facility] 00:00:00 00:00:00 MIRTA 22-4926-a4f 34c-46bd-b [facility] f-58852319h 70f-r0928i alexander faf56f 2016-12-15 2016-12-15 Outpatient [facility] [id number] [facility] 00:00:00 00:00:00 H, PROVIDER [facility]y [facility] 2016-12-15 2016-12-15 Outpatient [facility] 7if9e0y1-0z [id number] [facility] 00:00:00 00:00:00 H, PROVIDER e2-5dd3-65f 3ba-4a 3c-8 ealt 0-yk8xap295 9fd-cceee0 0f4 5f5e8e 2016-12-15 2016-12-15 Outpatient CHARLY BARDALES [facility] [id number] 35oqa9s4-3 [facility] 00:00:00 00:00:00 45-9d4q-r2z r9p-87i6-v [facility] d-q9x937086 00b-ed1c16 354 e7dd8d 2016-12-12 2016-12-12 Outpatient [facility] [id number] [facility] 00:00:00 00:00:00 H, PROVIDER [facility] 2016-12-12 2016-12-12 Outpatient [facility] 4qt1x6b0-2a r5993dv4-f [facility] 00:00:00 00:00:00 H, PROVIDER e2-8or7-97h 6fa-4f 7f-9 ealt 0-dc2yda548 402-fe6f8d 0f4 1526bf 2016-12-12 2016-12-12 Outpatient ISAURA, [facility] 3pk3a2x7-9q 91 6n69cp-3 [facility] 00:00:00 00:00:00 CHRISTINA e2-4is3-10l n5h-4oew- 9 ealt 0-fh5ege357 558-4d60f7 0f4 f917d6 2016-12-11 2016-12-11 Outpatient CHARLY BARDALES [facility] 33o0517l-09 a13x9v5x-8 [facility] 00:00:00 00:00:00 45-8s0u-z2q 3fe-4dc9-9 ealt d-x8g773624 474-f474cb 354 c4eb2b 2016-12-10 2016-12-10 Outpatient [facility] [id number] [facility] 00:00:00 00:00:00 H, PROVIDER [facility] 2016-12-10 2016-12-10 Outpatient [facility] 9fy8a4j4-2o 454usx3h-3 [facility] 00:00:00 00:00:00 H, PROVIDER e2-1ww7-49d 706-4a aa-b ealt 0-gx4viy368 af4-5611ae 0f4 012504 6180-09-14 2016-12-10 Outpatient CHARLY BARDALES [facility] 09a1215j-39 3gv61i33-j [facility] 00:00:00 00:00:00 45-5d0u-e8z e3a-4539-k [facility] d-c9x547137 i1g-72m0t6 354 5b51dc 2016-12-01 2016-12-01 Outpatient [facility] [id number] [facility] 00:00:00 00:00:00 H, PROVIDER casey molina 2016-12-01 2016-12-01 Outpatient [facility] 9la8i1q2-0y 6ub2y7u8-0 [facility] 00:00:00 00:00:00 H, PROVIDER e2-8ca7-61b 4f5-4c 72-9 ealt 0-dh8deh742 i5v-5fd133 0f4 8ff05c 2016-12-01 2016-12-01 Outpatient DIPIKA [facility] 01a8539c-79 42 sb94sv-2 [facility] 00:00:00 00:00:00 LAVELLE 45-3f3o-l6u 636-4710-8 ealt d-n2f556125 2ff-2f9a6a 354 ef57e5 2016-12-01 2016-12-01 Outpatient CHARLY BARDALES [facility] [id number]-41 vgzf2621-z [facility] 00:00:00 00:00:00 45-2e0b-o5q df0-4210-a ealt d-b6z695490 7n5-394m3i 354 4e8393 2016-11-27 2016-11-27 Outpatient [facility] [id number] Access 00:00:00 00:00:00 H, PROVIDER casey molina 2016-11-27 2016-11-27 Outpatient [facility] 7vc6t2n0-6e jub1c2oz-1 [facility] 00:00:00 00:00:00 H, PROVIDER e2-1ia3-21f db1-44 51-9 ealt 0-rd9ixq841 5n2-y9m673 0f4 381065 2474-09-01 2016-11-27 Outpatient DIPIKA, [facility] [id number]-19 72 p7vj99-5 Access 00:00:00 00:00:00 LAVELLE Kemp-8r7k-z4h k07-54v3-c [facility] d-n5z185060 384-b0c4cd 354 eb80b5 2016-11-26 2016-11-26 Outpatient [facility] [id number] Access 00:00:00 00:00:00 H, PROVIDER casey molina 2016-11-26 2016-11-26 Outpatient [facility] [id number] Access 00:00:00 00:00:00 H, PROVIDER gabby-5dn2-30m c45-46 cf-b ealt 0-bh1wcj539 4ad-4c0e68 0f4 37dc7c 2016-11-26 2016-11-26 Outpatient DORISR, [facility] [id number] c0 [id number] Access[facility] 00:00:00 00:00:00 LAVELLE 45-7j1o-u5r ae7-40e5-a ealt d-[id number] j06-2d25l7 354 fc21e9 2016-11-20 2016-11-20 Outpatient [facility] [id number] Access 00:00:00 00:00:00 H, PROVIDER casey lala 2016-11-20 2016-11-20 Outpatient [facility] 1eo7x3h3-9b [id number] Access[facility] 00:00:00 00:00:00 H, PROVIDER e2-8xn1-96m 2e2-42 0d-8 ealth 0-re1fuh250 c24-873i99 0f4 [id number] 2016-11-20 2016-11-20 Outpatient DORISR, [facility] [id number] Access[facility] 00:00:00 00:00:00 LAVELLE 45-8f7y-o5e 250-49d0-a ealt d-[id number] aa8-0b8ad1 354 [id number] 9198-08-23 2016-11-18 Outpatient [facility] [id number] Access[facility] 00:00:00 00:00:00 H, PROVIDER casey [facility] 2016-11-18 2016-11-18 Outpatient [facility] [id number] Access 00:00:00 00:00:00 H, PROVIDER e2-0gj8-38n 7d4-4d a9-8 ealt 0-qt6wwx533 c45-43igtm 0f4 c11e26 2016-11-18 2016-11-18 Outpatient CHARLY BARDALES [facility] [id number] Access[facility] 00:00:00 00:00:00 45-8a7y-g9l ea3-4257-a ealt d-[id number] 2cc-9275f9 354 e49a35 2016-11-12 2016-11-12 Outpatient DORISR, [facility] [id number] Access[facility] 00:00:00 00:00:00 LAVELLE 45-5s7j-a9l l7i-8rl8-i ealt d-[id number] p9h-901uu5 354 [id number] 2016-11-11 2016-11-11 Outpatient [facility] [id number] Access 00:00:00 00:00:00 H, PROVIDER casey [facility] 2016-11-11 2016-11-11 Outpatient [facility] [id number] Access[facility] 00:00:00 00:00:00 H, PROVIDER e2-1ga0-40a 968-42 07-b ealt 0-yt7chp248 q55-716841 0f4 9f36c8 2016-11-11 2016-11-11 Outpatient DIPIKA, [facility] [id number] 7c [id number]-i Access[facility] 00:00:00 00:00:00 LAVELLE 45-2j8q-h6i 633-4aa9-8 ealt d-[id number] fff-487090 354 ee4a0e 2016-10-30 2016-10-30 Outpatient [facility] [id number] Access[facility] 00:00:00 00:00:00 H, PROVIDER casey [facility] 2016-10-30 2016-10-30 Outpatient [facility] [id number] Access[facility] 00:00:00 00:00:00 H, PROVIDER gabby-0ht1-17x 47b-46 3e-8 ealt 0-vq2ewk380 n6l-ktz6e3 0f4 [id number] 2016-10-30 2016-10-30 Outpatient CHARLY BARDALES [facility] [id number] Access[facility] 00:00:00 00:00:00 45-7e7b-p7j evert-47eb-b ealt d-[id number] 1m2-74a2xb 354 [id number] 2016-10-26 2016-10-26 Outpatient [facility] [id number] Access[facility] 00:00:00 00:00:00 H, PROVIDER casey molina 2016-10-26 2016-10-26 Outpatient [facility] [id number] Access[facility] 00:00:00 00:00:00 H, PROVIDER april9fl9-25s 1e9-4c db-b ealth 0-bs6twm799 t04-b639yo 0f4 48ce57 2016-10-26 2016-10-26 Outpatient MENDIETA, [facility] 3uc2n1w3-7p e8 [id number] Access[facility] 00:00:00 00:00:00 CHRISTINA e2-7oa5-69a w8o-8687- 9 ealt 0-ar5eem509 c7q-u8f0b4 0f4 [id number] 2016-10-26 2016-10-26 Outpatient OMORI, [facility] 1py7y1n5-3e 5e5 2e7qg-9 Access[facility] 00:00:00 00:00:00 NAIF e2-2tg5-26f a12-0k66- b ealt 0-gz6gzs812 000-rw1162 0f4 79f96a 2016-10-09 2016-10-09 Outpatient CANAMAR, [facility] [id number] cf [id number] Access[facility] 00:00:00 00:00:00 LAVELLE 45-3i7u-u0s 038-47e9-8 ealt d-h1l351612 93d-796d4d 354 1ee1de 2016-10-08 2016-10-08 Outpatient [facility] [id number] Access 00:00:00 00:00:00 H, PROVIDER casey [facility] 2016-10-08 2016-10-08 Outpatient [facility] 3df2z5q2-3u [id number] Access[facility] 00:00:00 00:00:00 H, PROVIDER gabby-1px1-00c 757-44 91-a ealt 0-kl8brp824 338-7c8ea0 0f4 a2a888 2016-10-08 2016-10-08 Outpatient CANAMAR, [facility] [id number] ok2ly8-8 Access[facility] 00:00:00 00:00:00 LAVELLE 45-0g5p-g4h v69-7f8f-s ealth d-[id number] 65d-fda44a 354 c196f4 2016-10-05 2016-10-05 Outpatient [facility] [id number] Access[facility] 00:00:00 00:00:00 H, PROVIDER casey [facility] 2016-10-05 2016-10-05 Outpatient [facility] 2ll5p7i7-1w [id number] Access[facility] 00:00:00 00:00:00 H, PROVIDER e2-1mk1-10p 137-4e 58-a ealth 0-qs2bhn299 0aa-68160h 0f4 gb774b 2016-10-05 2016-10-05 Outpatient DIPIKA, [facility] [id number] c9 [id number]-l Access[facility] 00:00:00 00:00:00 LAVELLE 45-5a6n-t2v 1q6-930d-[facility]-t[facility]80[facility] g69-iv72zz 354 [id number] 1907-06-29 2016-09-24 Outpatient [facility] [id number] Access[facility] 00:00:00 00:00:00 H, PROVIDER casey [facility] 2016-09-24 2016-09-24 Outpatient [facility] 8dx9v8b1-3k [id number] Access[facility] 00:00:00 00:00:00 H, PROVIDER e2-7so5-60j 9da-4d 9e-a ealt 0-ds7txn030 c78-64823b 0f4 0747d9 2016-09-24 2016-09-24 Outpatient ISAURA, [facility] 2oy5f0e1-3c af [id number] Access[facility] 00:00:00 00:00:00 CHRISTINA e2-7rc3-99t v53-725s- b ealth 0-bg1qbd932 t2t-6n227t 0f4 7bee42 2016-09-24 2016-09-24 Outpatient OMSTEFANI, [facility] 1ho5d0s5-7a 060 0u7v3-4 Access[facility] 00:00:00 00:00:00 NAIF e2-4ja8-79g 4bb-4165- a ealt 0-mz0lql720 98a-0p643x 0f4 21k005 2016-09-22 2016-09-22 Outpatient [facility] [id number] Access[facility] 00:00:00 00:00:00 H, PROVIDER casey molina 2016-09-22 2016-09-22 Outpatient [facility] [id number] Access[facility] 00:00:00 00:00:00 H, PROVIDER e2-6jm5-69q 072-4c 2a-9 ealth 0-ww6wlt183 094-b1ac8e 0f4 1311cf 2016-09-22 2016-09-22 Outpatient TIMA, [facility] 9jt6u4b0-1j 292 72ebd-f Access[facility] 00:00:00 00:00:00 OSMAN e2-8kn8-07f 330-4e57-a ealth 0-qr0gcg495 92e-33cd44 0f4 [id number] 2016-09-22 2016-09-22 Outpatient CONTRERAS, [facility] 2fz0o1p4-2p 2 6r3gwy2-q Access[facility] 00:00:00 00:00:00 MIRTA e2-3lq7-79k 87b-4174-a ealth 0-lv1vbv517 470-28t129 0f4 1573c2 2016-08-26 2016-08-26 Outpatient [facility] [id number] [facility] 00:00:00 00:00:00 H, PROVIDER ea lth 2016-08-26 2016-08-26 Outpatient [facility] 9cf9l3d9-6x e410broa-c [facility] 00:00:00 00:00:00 H, PROVIDER e2-8fq4-70k a1b-4a 92-8 ealth 0-wv0tkn717 t07-7hih02 0f4 7bt575 2016-08-26 2016-08-26 Outpatient MENDIETA, [facility] 0nv7w4o6-3l da mqa02t-9 [facility] 00:00:00 00:00:00 CHRISTINA e2-2yl2-08w 81b-44be- a ealth 0-ue6abz136 452-8r6198 0f4 7j5590 2016-08-26 2016-08-26 Outpatient IRIZARRY, [facility] 1qd2w6i1-8g afb 1ll92-7 [facility] 00:00:00 00:00:00 KATELINE e2-6ww7-66g 026-4182- b ealth 0-gc9goo514 11d-0h3640 0f4 6m2708 2016-08-26 2016-08-26 Outpatient OMORI, [facility] 8vx8b1g2-9k c21 101ca-e [facility] 00:00:00 00:00:00 NAIF e2-0ck3-12p p2b-9407- a ealt 0-es0egy392 ec7-d88641 0f4 92c4e9 2016-08-03 2016-08-03 Outpatient TIMA, [facility] sgm197wy-6p e56 4bj72-y [facility] 16:13:00 16:13:00 OSMAN 22-4926-a4f 17d-4116-b ealt f-72726453k 320-16acc1 alexander 11df8e 2016-07-29 2016-07-29 Outpatient [facility] 107 [id number] [facility] 00:00:00 00:00:00 H, PROVIDER [facility] 2016-07-29 2016-07-29 Outpatient [facility] 0qy0g6r8-6i 0uhs0944-2 [facility] 00:00:00 00:00:00 H, PROVIDER e2-2uo3-05y 2c6-43 ca-8 [facility] 0-ns9hyc745 fe8-48fadf 0f4 54c2ba 2016-07-29 2016-07-29 Outpatient TIMA, [facility] zot702bk-2x a6f 85xh5-7 [facility] 00:00:00 00:00:00 OSMAN 22-4926-a4f 6ad-4eac-9 ealt f-[id number] ab0-86e98c alexander b2822x 2016-07-29 2016-07-29 Outpatient CONTRERAS, [facility] stv809sl-3v d n87re36-3 [facility] 00:00:00 00:00:00 MIRTA 22-4926-a4f 2m0-34jf-4 ealt f-99549447f 67a-3d9ddd alexander jel066 2016-07-24 2016-07-24 Outpatient [facility] 107 [id number] [facility] 00:00:00 00:00:00 H, PROVIDER [facility] 2016-07-24 2016-07-24 Outpatient [facility] 2wi7k5w4-5h [id number] [facility] 00:00:00 00:00:00 H, PROVIDER e2-2gf0-82r 046-4f 02-a [facility] 0-lt1yjx868 7p0-82xl30 0f4 062d54 2016-07-24 2016-07-24 Outpatient ISAURA, [facility] bkb396cl-0p d2 422v89-l [facility] 00:00:00 00:00:00 CHRISTINA 22-4926-a4f m1z-68ct- b ealth f-26085651z l1e-464059 alexander c19d1a 2016-07-24 2016-07-24 Outpatient ZOE, [facility] bsr396rz-8c e3f s9h79-n [facility] 00:00:00 00:00:00 NAIF 22-4926-a4f i1u-06r7- 8 ealth f-77418243h bba-be69db alexander 0b9f49 2016-07-17 2016-07-17 Outpatient ENRIQUE, [facility] cjt608yj-3t 163 j62mk-2 [facility] 00:00:00 00:00:00 GAYARIANNE 22-4926-a4f n32-7651-u ealt f-34632161h ec6-9ef36c alexander 539417 6866-04-20 2016-07-16 Outpatient [facility] 107 [id number] [facility] 00:00:00 00:00:00 H, PROVIDER ea lt 2016-07-16 2016-07-16 Outpatient [facility] 4rr1e1h6-5w 477x56sw-3 [facility] 00:00:00 00:00:00 H, PROVIDER e2-8cj8-36i f7c-42 66-9 [facility] 0-bk7vei232 762-340d90 0f4 1876fa 2016-07-16 2016-07-16 Outpatient IRIZARRY, [facility] 87g4921f-69 692 5n4k8-m [facility] 00:00:00 00:00:00 KATELINE 45-7a5z-h9n 17f-442e- a ealt d-u2y678157 ddf-2e2132 354 e90b6a 2016-07-16 2016-07-16 Outpatient DIANE, [facility] rxv397ja-8f c 0387fac-c [facility] 00:00:00 00:00:00 MIRTA 22-4926-a4f 06b-4903-a ealth f-50814787q d09-2f5q31 alexander [id number] 2016-07-16 2016-07-16 Outpatient CHARLY BARDALES [facility] 13c0483z-27 51jjk940-f [facility] 00:00:00 00:00:00 45-2f6b-i9i 049-4b28-8 ealt d-v9c451639 36f-78p470 354 hwh533 2016-07-16 2016-07-16 Outpatient ENRIQUE, [facility] vkn662ox-1k 2cb 126j5-l [facility] 00:00:00 00:00:00 CAROLYN 22-4926-a4f ec3-43e2-b ealth f-59855555u 989-acffbb alexander acf4d2 2016-07-14 2016-07-14 Outpatient [facility] 107 [id number] [facility] 00:00:00 00:00:00 H, PROVIDER ea lth 2016-07-14 2016-07-14 Outpatient [facility] 5ur6b2x5-9h 683h6x7n-2 [facility] 00:00:00 00:00:00 H, PROVIDER e2-9mi6-76v 52f-4d 8d-9 ealt 0-gz0eyg544 596-929d1e 0f4 5cbb75 2016-07-14 2016-07-14 Outpatient DIANE, [facility] euu320vd-8b f [id number] [facility] 00:00:00 00:00:00 MIRTA 22-4926-a4f 486-43ef-b ealth f-54809880o 58e-c764a4 alexander 4a23b4 2016-07-14 2016-07-14 Outpatient TIMA, [facility] qdz518rg-6e b38 8vg7v-8 [facility] 00:00:00 00:00:00 OSMAN 22-4926-a4f 5y8-8e86-w ealth f-53616699g 532-cac9af alexander bf28b2 2016-07-06 2016-07-06 Outpatient [facility] 107 [id number] [facility] 00:00:00 00:00:00 H, PROVIDER [facility] 2016-07-06 2016-07-06 Outpatient [facility] 2tg2b3o8-1b 627d8yh5-g [facility] 00:00:00 00:00:00 H, PROVIDER e2-6aa1-97h 7e3-46 ad-b [facility] 0-tu7aan935 60a-45810s 0f4 134415 6112-04-10 2016-07-06 Outpatient TIMA, [facility] nkd953bv-8m ca6 0064f-c [facility] 00:00:00 00:00:00 OSMAN 22-4926-a4f 308-477e-b ealt f-69291348m 7z8-v3o63b alexander befcac 2016-07-06 2016-07-06 Outpatient CONTRERAS, [facility] ytw865jw-0q a 34k076g-5 [facility] 00:00:00 00:00:00 MIRTA 22-4926-a4f z22-6i64-1 ealt f-20746207r o9d-rai01d alexander p4335k 2016-07-01 2016-07-01 Outpatient [facility] [id number] [facility] 00:00:00 00:00:00 H, PROVIDER [facility] 2016-07-01 2016-07-01 Outpatient [facility] 2xc4l2u4-0s y944h0l1-4 [facility] 00:00:00 00:00:00 H, PROVIDER e2-0tr9-08l fbd-41 57-9 ealt 0-pw6syx217 1p4-03589g 0f4 13dfc5 2016-07-01 2016-07-01 Outpatient CHARLY BARDALES [facility] 20f5732y-00 u30l3o60-7 [facility] 00:00:00 00:00:00 45-0b5c-v5b 8ef-44fa-9 ealt d-e6p296894 145-03bbe1 354 734d1e 2016-07-01 2016-07-01 Outpatient IRIZARRY, [facility] 80z5457m-11 9f6 1438d-f [facility] 00:00:00 00:00:00 KATELINE 45-8k5n-y0j y67-3lng- 9 ealth d-n5e886588 5e2-2ln1v2 354 998892 6217-04-02 2016-06-28 Outpatient TIMA, [facility] zia794lt-4q ba4 n2jg0-4 [facility] 00:00:00 00:00:00 OSMAN 22-4926-a4f fb6-4103-8 ealth f-69973092f l05-1375q5 alexander 7t344f 2016-06-25 2016-06-25 Outpatient [facility] 107 [id number] [facility] 00:00:00 00:00:00 H, PROVIDER ea lth 2016-06-25 2016-06-25 Outpatient [facility] 5wh0v2j8-6x 82486ee4-4 [facility] 00:00:00 00:00:00 H, PROVIDER e2-8hf4-31y 98e-47 c8-a ealt 0-ya3vtf503 p2e-s767c1 0f4 4f1aaa 2016-06-25 2016-06-25 [facility] 8yn2d-5 [facility] 00:00:00 00:00:00 OSMAN 22-4926-a4f 533-4298-a ealth f-59088807a 2z9-w2q6yk alexander 239734 0787-03-30 2016-06-25 Outpatient MENDIETA, [facility] 87q3006q-54 5d 7cus2h-0 [facility] 00:00:00 00:00:00 CHRISTINA 45-5f4z-p9y x53-6290- a ealth d-p8l888844 74d-bc9f79 354 u55799 2016-06-25 2016-06-25 Outpatient OMORI, [facility] 73q2108s-95 643 h7ju0-9 [facility] 00:00:00 00:00:00 NAIF 45-3l4m-m2p 2v1-46m0- b ealth d-s8l176857 def-275d83 354 zg111h 2016-06-25 2016-06-25 Outpatient CONTRERAS, [facility] ycb805uh-9g f lo12720-3 [facility] 00:00:00 00:00:00 MIRTA 22-4926-a4f y7w-61qm-o ealt f-52357158b 7s3-192fx8 alexander bc1d2c 2016-06-08 2016-06-08 Outpatient [facility] [id number] Access 00:00:00 00:00:00 H, PROVIDER [facility] 2016-06-08 2016-06-08 Outpatient [facility] 0cc3l6r1-0s 48a787h7-i [facility] 00:00:00 00:00:00 H, PROVIDER april6ci7-16m d53-4b 39-b ealt 0-fs7rsc976 49d-bb0c97 0f4 a273a3 2016-06-08 2016-06-08 Outpatient CHARLY BARDALES [facility] 43j2574d-30 h6sk3122-4 [facility] 00:00:00 00:00:00 45-1h0v-e1p 84c-42c0-9 [facility] d-i3r979327 644-e9c44e 354 a4d7b9 2016-06-08 2016-06-08 Outpatient IRIZARRY, [facility] 12s2020f-59 cdb 09404-y [facility] 00:00:00 00:00:00 KATELINE 45-8d7i-i9z 41d-4957- b ealt d-j2l028409 1z6-x6vvdj 354 38a8c2 2016-05-19 2016-05-19 Outpatient [facility] [id number] [facility] 00:00:00 00:00:00 H, PROVIDER casey molina 2016-05-19 2016-05-19 Outpatient [facility] 5qg7b8i5-0j 1n0wr4r0-8 [facility] 00:00:00 00:00:00 H, PROVIDER e2-0na4-61e tonya-4c 95-a ealt 0-vk6uqa326 y5s-u8qs2l 0f4 0e2daa 2016-05-19 2016-05-19 Outpatient TIMA, [facility] 0hu6d6f4-9q fc5 5i27f-3 [facility] 00:00:00 00:00:00 OSMAN e2-0an5-90e ad3-40d5-b ealth 0-vq0tcs206 bc9-a48b2d 0f4 01z056 2016-05-19 2016-05-19 Outpatient DIANE, [facility] 3be6w7x2-0l 8 uc850c6-3 [facility] 00:00:00 00:00:00 MIRTA e2-6se6-58e 9e7-8107-k ealt 0-jv4sjb073 d72-n0w102 0f4 39beb0 2016-05-15 2016-05-15 Outpatient [facility] [id number] [facility] 00:00:00 00:00:00 H, PROVIDER ea lt 2016-05-15 2016-05-15 Outpatient [facility] 9kk1n6n0-3n q39vy22y-c [facility] 00:00:00 00:00:00 H, PROVIDER [facility]6rl1-27e bbe-4f 60-b ealth 0-la3dvk941 941-41ae95 0f4 ib5523 2016-05-15 2016-05-15 Outpatient DIANE, [facility] 57q3640b-11 f g6x5v19-2 [facility] 00:00:00 00:00:00 MIRTA 45-1h5a-o5x 2r8-8113-4 ealth d-j7i512355 311-i0i842 354 835fae 2016-05-15 2016-05-15 Outpatient OMORI, [facility] 67u9983w-73 2b7 80c64-2 [facility] 00:00:00 00:00:00 NAIF 45-0r9l-a6x 373-4ac8- b ealth d-a2s580871 4d8-o750ch 354 fv7527 2016-05-15 2016-05-15 Outpatient MENDIETA, [facility] 92e4383i-39 d3 0bvcw4-6 [facility] 00:00:00 00:00:00 CHRISTINA 45-7e7a-m8b r32-0391- a ealth d-p2r348242 [facility]82918o 354 37r461 2016-05-15 2016-05-15 Outpatient IRIZARRY, [facility] 35a4984c-44 e10 l6638-3 [facility] 00:00:00 00:00:00 KATELINE 45-4p5t-g7l y2c-1s3w- a ealth d-u0j995756 358-d132b6 354 e444e3 2016-05-11 2016-05-11 Outpatient [facility] 107 [id number] [facility] 00:00:00 00:00:00 H, PROVIDER casey lt 2016-05-11 2016-05-11 Outpatient [facility] 6vq2e0o9-6f 4c703v8v-5 [facility] 00:00:00 00:00:00 H, PROVIDER e2-6cu7-28s 986-4e 16-9 ealt 0-ko4vff671 7s7-22t783 0f4 960738 6154-02-13 2016-05-11 Outpatient FOREIGN, [facility] 15q0281i-54 35hp77h3-6 [facility] 00:00:00 00:00:00 FRANKLIN 45-0g8h-g8c ee0-4498-a ealt d-f9y597214 cb7-627bcc 354 62c67e 2016-05-11 2016-05-11 Outpatient DIANE, [facility] 59t7746l-80 f 8zs2ovk-m [facility] 00:00:00 00:00:00 MIRTA 45-6h0u-s8l 36e-4988-b ealt d-e4z610066 [facility] 727e3d 2016-05-08 2016-05-08 Outpatient [facility] 107 [id number] [facility] 00:00:00 00:00:00 H, PROVIDER casey molina 2016-05-08 2016-05-08 Outpatient [facility] 2ng1i8u0-5o 3981s58h-7 [facility] 00:00:00 00:00:00 H, PROVIDER e2-0nx0-95a e1f-48 2e-8 ealth 0-tm5imt832 2db-jts364 0f4 bc16c2 2016-05-08 2016-05-08 Outpatient SHELBY, [facility] 6jg1e9o0-5g 18c q7124-c [facility] 00:00:00 00:00:00 SAMANTHA e2-3yz7-37w 27d-42df- a ealth 0-il6yxe805 bb7-27118p 0f4 29x316 2016-05-08 2016-05-08 Outpatient CONTRERAS, [facility] 4br6g5g4-2m 3 k361h9r-3 [facility] 00:00:00 00:00:00 MIRTA e2-8bw8-84r 353-45e9-a ealth 0-zm4hyc839 be5-o28286 0f4 8412be 2016-05-05 2016-05-05 Outpatient SHELBY, [facility] 5mk6n9p1-7e 773 e4m8r-9 [facility] 00:00:00 00:00:00 SAMANTHA e2-1am4-24n 09b-4a43- a ealth 0-sl0tqx040 83f-02ffd4 0f4 8eed89 2016-05-04 2016-05-04 Outpatient [facility] [id number] [facility] 00:00:00 00:00:00 H, PROVIDER ea lth 2016-05-04 2016-05-04 Outpatient [facility] 6by8r8z7-2a 76xbhdu8-3 [facility] 00:00:00 00:00:00 H, PROVIDER e2-3re9-44e 964-4e b0-8 ealth 0-gx7gyk683 fd5-e283fd 0f4 1cba2b 2016-05-04 2016-05-04 Outpatient SHELBY, [facility] 2st7f6c2-1m c7e 8p947-1 [facility] 00:00:00 00:00:00 SAMANTHA e2-6od8-78w 677-4bd7- b ealth 0-oz9dqw668 14f-f6fe70 0f4 96935h 2016-05-04 2016-05-04 Outpatient CONTRERAS, [facility] 9xc5y4h4-0r d j77215d-y [facility] 00:00:00 00:00:00 MIRTA e2-3xt2-74s 294-4fb9-a ealth 0-iq2uyb003 51f-f628b0 0f4 s7271z 2016-04-27 2016-04-27 Outpatient [facility] [id number] [facility] 00:00:00 00:00:00 H, PROVIDER [facility] 2016-04-27 2016-04-27 Outpatient [facility] 7rv6l2s1-9s b205yx88-3 [facility] 00:00:00 00:00:00 H, PROVIDER e2-6pk6-77g 0c7-4f f1-8 ealth 0-hq7nml435 de9-3790eb 0f4 4239d8 2016-04-27 2016-04-27 Outpatient DIANE, [facility] 3pk5o8h2-5j 3 8qat710-6 [facility] 00:00:00 00:00:00 MIRTA e2-8kg6-31c 1g1-4l50-f ealth 0-jc6wnp611 4y6-e54236 0f4 3i315g 2016-04-27 2016-04-27 Outpatient DESTINY, [facility] 3eq1i3h0-8o edf 7z7m6-m [facility] 00:00:00 00:00:00 MELVA e2-6ep7-12l 4fb-4099-9 ealth 0-vd7epf809 ca8-42b5cf 0f4 047ded 2016-04-24 2016-04-24 Outpatient [facility] [id number] [facility] 00:00:00 00:00:00 H, PROVIDER [facility] 2016-04-24 2016-04-24 Outpatient [facility] 8en7z7s3-9x yv2zez0k-i [facility] 00:00:00 00:00:00 H, PROVIDER e2-3aw3-10p 5aa-41 ee-8 ealth 0-vc6nnm461 bfc-f46870 0f4 r2750z 2016-04-24 2016-04-24 Outpatient FOREIGN, [facility] 08l4418e-20 b41ce936-3 [facility] 00:00:00 00:00:00 FRANKLIN 45-2g9e-r1x 8v4-5x06-8 ealth d-m5l113947 fee-0pk785 354 f7e46e 2016-04-24 2016-04-24 Outpatient ISAURA, [facility] 28f4406u-20 47 0z07i1-5 [facility] 00:00:00 00:00:00 CHRISTINA 45-0a9o-j1j 287-4cce- 9 ealth d-z9o338442 4w4-022e10 354 0c8ebc 2016-04-24 2016-04-24 Outpatient SHELBY, [facility] 1lu3s5i9-9n 978 1f018-i [facility] 00:00:00 00:00:00 SAMANTHA e2-7ts0-70a 3ec-4aa4- 8 ealth 0-ef0hvv805 c11-25npm3 0f4 cfdb01 2016-04-24 2016-04-24 Outpatient DIANE, [facility] 2pa5s6h5-7i 3 k1au5z9-3 Access 00:00:00 00:00:00 MIRAT e2-9ki8-13e 39f-490c-b ealth 0-xe8euu037 8ce-a94b3d 0f4 611fdf 2016-04-24 2016-04-24 Outpatient DIANE, [facility] 56n3599h-83 2 5968069-h [facility] 00:00:00 00:00:00 MIRTA 45-3h2t-p2r 86a-4439-a ealth d-u8n205094 t0e-27q3eu 354 218d45 2016-04-24 2016-04-24 Outpatient IRIZARRY, [facility] 37n9082d-64 fc7 8687c-4 [facility] 00:00:00 00:00:00 KATELINE 45-8w6q-r0j i6o-2f25- a ealth d-m6g330958 e2g-1ss462 354 9f3b30 2016-04-24 2016-04-24 Outpatient OMORI, [facility] 26q6243k-66 d38 s5a44-5 [facility] 00:00:00 00:00:00 NAIF 45-6o4a-s0x 768-4bfb- b ealt d-q6j411153 n6z-63i8l7 354 4dd6fd 2016-04-23 2016-04-23 Outpatient [facility] 107 [id number] Access 00:00:00 00:00:00 H, PROVIDER [facility] 2016-04-23 2016-04-23 Outpatient [facility] 7qy9x3r0-2i p0gg1j12-h [facility] 00:00:00 00:00:00 H, PROVIDER e2-8no9-45i be8-4b 21-9 ealt 0-xh4jsd699 3dc-5f1e84 0f4 22d77d 2016-04-23 2016-04-23 Outpatient DIANE, [facility] 81r8317v-24 6 n77n72f-q [facility] 00:00:00 00:00:00 MIRTA 45-7c7x-e5v 994-45ef-b ealt d-u4b432593 8h1-m2909k 354 51ffb4 2016-04-23 2016-04-23 Outpatient FOREIGN, [facility] 53j5416k-70 87o655pk-t [facility] 00:00:00 00:00:00 FRANKLIN 45-7f1o-c8u eaf-4e51-9 [facility] d-w9u821172 1j3-z5x124 354 7999a2 2016-04-20 2016-04-20 Outpatient [facility] [id number] Access 00:00:00 00:00:00 H, PROVIDER casey lala 2016-04-20 2016-04-20 Outpatient [facility] 4ib2x1p5-1j [id number]-1 [facility] 00:00:00 00:00:00 H, PROVIDER e2-4aa6-62q a9b-45 15-9 ealt 0-rw3kot178 2k1-496984 0f4 924964 0761-01-23 2016-04-20 Outpatient DESTINY, [facility] 8uv9u1d0-7w 407 72l0k-t [facility] 00:00:00 00:00:00 MELVA e2-3hx7-73k 067-4720-a [facility] 0-qc9dyv302 679-47bd8d 0f4 636a60 2016-04-20 2016-04-20 Outpatient CONTRERAS, [facility] 7ew7y9x7-3y 2 67ghp6b-x [facility] 00:00:00 00:00:00 MIRTA e2-6ug8-03r 373-4fb8-8 [facility] 0-ix1sem310 4k2-pu1777 0f4 3b9fb0 2016-04-17 2016-04-17 Outpatient [facility] [id number] [facility] 00:00:00 00:00:00 H, PROVIDER [facility] 2016-04-17 2016-04-17 Outpatient [facility] 6oy0i9h3-7z 5v037e0t-l [facility] 00:00:00 00:00:00 H, PROVIDER e2-5yc8-21c 7cd-42 99-a [facility] 0-jo0bvb857 r46-y0k8l3 0f4 685c34 2016-04-07 2016-04-07 Outpatient [facility] [id number] [facility] 00:00:00 00:00:00 H, PROVIDER casey lt 2016-04-07 2016-04-07 Outpatient [facility] 4zh5b1e7-9y 77i5xdn3-j [facility] 00:00:00 00:00:00 H, PROVIDER e2-2oa8-91f f6e-4e 34-8 [facility] 0-kv1bqz990 026-e65fd2 0f4 3f7d68 2016-04-07 2016-04-07 Outpatient TIMA, [facility] zum272ud-[id number] 561 b1u03-o [facility] 00:00:00 00:00:00 OSMAN 22-4926-a4f d9g-4gd2-k [facility] f-[id number] 89b-711bf4 alexander nb196b 2016-04-07 2016-04-07 Outpatient TIMA, [facility] 1wl2q7i3-2f 515 ffab0-4 [facility] 00:00:00 00:00:00 OSMAN e2-5oq5-94u 605-4ff2-a ealt 0-kl5xfi449 18f-62k739 0f4 130b3b 2016-04-07 2016-04-07 Outpatient CONTRERAS, [facility] uyp219xw-8f 8 [id number] [facility] 00:00:00 00:00:00 MIRTA 22-4926-a4f 57e-49df-a ealt f-[id number] 23e-006f72 alexander 4e176f 2016-04-06 2016-04-06 Outpatient [facility] [id number] [facility] 00:00:00 00:00:00 H, PROVIDER [facility] 2016-04-06 2016-04-06 Outpatient [facility] [id number] [facility] 00:00:00 00:00:00 H, PROVIDER e2-7bm7-46p 933-4f 57-9 ealt 0-gz2zsh099 cdf-f04f62 0f4 51o053 2016-04-06 2016-04-06 Outpatient TIMA, [facility] 7hs2j4m1-6s c72 [id number] [facility] 00:00:00 00:00:00 OSMAN e2-4kb5-84l u2v-6f17-z ealt 0-tm1skf464 z46-25027c 0f4 ad40b7 2016-04-06 2016-04-06 Outpatient CONTRERAS, [facility] 4me4g9m5-8l 3 [id number]-t [facility] 00:00:00 00:00:00 MIRTA e2-3cv6-96k eb2-4dd6-b ealt 0-xr0tgp500 9fd-dc32d8 0f4 59k515 2016-03-26 2016-03-26 Outpatient [facility] [id number] [facility] 00:00:00 00:00:00 H, PROVIDER casey molina 2016-03-26 2016-03-26 Outpatient [facility] 4ii2h8g0-6i 0x49p6c9-l [facility] 00:00:00 00:00:00 H, PROVIDER e2-9dv8-68k f3d-41 a6-a ealt 0-mk2rhr639 ba9-6872c4 0f4 087868 4402-12-29 2016-03-26 Outpatient OMORI, [facility] [id number]-[id number] 8bc 4myz1-9 [facility] 00:00:00 00:00:00 NAIF 22-4926-a4f 598-4848- a ealt f-[id number] 098-293a08 alexander kb062y 2016-03-26 2016-03-26 Outpatient CONTRERAS, [facility] [id number]-8o 1 [id number]-6 [facility] 00:00:00 00:00:00 MIRTA 22-4926-a4f 6ee-4ff7-b ealt f-[id number] 583-72eac5 alexander 326a7e 2016-03-26 2016-03-26 Outpatient IRIZARRY, [facility] [id number]-9c 576 0j5ev-8 [facility] 00:00:00 00:00:00 SUKUMAR 22-4926-a4f 7b7-3m49- 8 [facility] f-[id number] 9cc-4c8380 alexander 0b4fc0 2016-03-25 2016-03-25 Outpatient [facility] [id number] [facility] 00:00:00 00:00:00 H, PROVIDER ea lth 2016-03-25 2016-03-25 Outpatient [facility] 7xt6d5p2-5l [id number]-[id number] [facility] 00:00:00 00:00:00 H, PROVIDER e2-4ia4-24h dd6-45 84-8 [facility] 0-ml7aux688 6v6-x02zuv 0f4 qr242i 2016-03-25 2016-03-25 Outpatient TIMA, [facility] ldh767fl-6c 560 39p13-2 [facility] 00:00:00 00:00:00 OSMAN 22-4926-a4f 065-44df-b ealt f-[id number] 819-2699d1 alexander 8f5a2f 2016-03-25 2016-03-25 Outpatient CONTRERAS, [facility] [id number] 9 89aq7v3-j [facility] 00:00:00 00:00:00 MIRTA 22-4926-a4f x42-7u8i-2 ealt f-[id number] 48f-8ad8b4 alexander b50eed 2016-03-06 2016-03-06 Outpatient [facility] [id number] [facility] 00:00:00 00:00:00 H, PROVIDER [facility] 2016-03-06 2016-03-06 Outpatient [facility] 1gg4l0x7-9v [id number] [facility] 00:00:00 00:00:00 H, PROVIDER gabby-8dp5-45z f9e-49 00-9 [facility] 0-bv2zdv806 84c-8s2104 0f4 77p670 2016-03-06 2016-03-06 Outpatient MENDIETA, [facility] des168ho-[id number] da 80fadd-2 [facility] 00:00:00 00:00:00 CHRISTINA 22-4926-a4f 0w2-4d3h- a ealt f-[id number] i44-862j43 alexander 4c9b58 2016-03-06 2016-03-06 Outpatient CONTRERAS, [facility] dtl188ug-6p 3 5o8gcaz-s [facility] 00:00:00 00:00:00 MIRTA 22-4926-a4f 95d-4894-8 ealt f-[id number] 41e-08a2d9 alexander 2085f3 2016-03-03 2016-03-03 Outpatient TIMA, [facility] vtx897ph-9p 11d [id number] [facility] 00:00:00 00:00:00 OSMAN 22-4926-a4f 1fb-4f0a-a ealt f-41999340h 780-84p148 alexander 2abc72 2016-02-28 2016-02-28 Outpatient [facility] [id number] [facility] 00:00:00 00:00:00 H, PROVIDER casey lala 2016-02-28 2016-02-28 Outpatient [facility] 8ox7o0k6-0y o36yw3m4-4 [facility] 00:00:00 00:00:00 H, PROVIDER gabby-1tl3-56m 122-40 d1-a [facility] 0-qz4fot015 cd8-8e0dd4 0f4 c9ee35 2016-02-28 2016-02-28 Outpatient CONTRERAS, [facility] fjj065kz-1a 3 657dx4v-8 [facility] 00:00:00 00:00:00 MIRTA 22-4926-a4f af1-4c49-8 ealt f-[id number] 251-7271d4 alexander 5a4e2f 2016-02-28 2016-02-28 Outpatient TIMA, [facility] qyd154nr-3s 30e 4cpf1-4 [facility] 00:00:00 00:00:00 OSMAN 22-4926-a4f ca3-4e7f-9 [facility] f-[id number] 7s4-m088r3 alexander 5fb9b9 2016-02-25 2016-02-25 Outpatient ZAGALA, [facility] 0md9q5p4-4k 882 s7in0-x [facility] 00:00:00 00:00:00 MELVA e2-4ou0-35b 7w2-6mq2-8 [facility] 0-sh7xjq681 398-u30105 0f4 be84b6 2016-02-24 2016-02-24 Outpatient GIGIGALA, [facility] 0xh0w3x9-2q 970 6112d-8 [facility] 00:00:00 00:00:00 MELVA e2-8bi6-68v 522-4d0a-8 [facility] 0-ae1ban171 3ed-40eaf8 0f4 0f12d2 2016-02-18 2016-02-18 Outpatient [facility] [id number] [facility] 00:00:00 00:00:00 H, PROVIDER ea lth 2016-02-18 2016-02-18 Outpatient [facility] 9cg9m8v3-5d l9nl18ck-0 [facility] 00:00:00 00:00:00 H, PROVIDER e2-9rs2-61l 82f-43 1a-b ealt 0-zt0bqq382 b7b-84545g 0f4 5abef2 2016-02-18 2016-02-18 Outpatient ZAGALA, [facility] 9st7a7d9-0u 2fa 39j86-9 [facility] 00:00:00 00:00:00 MELVA e2-2lj6-52z y2w-2h4o-s ealth 0-jo0pjy203 279-b1d14b 0f4 e2f42d 2016-02-18 2016-02-18 Outpatient CONTRERAS, [facility] 6be4o1d8-7h 8 7p25n22-9 [facility] 00:00:00 00:00:00 MIRTA e2-4us2-69y 2e6-9607-k ealth 0-hy8ynh696 alexander-e606c4 0f4 149c44 2016-02-10 2016-02-10 Outpatient TIMA, [facility] 7es4s0v3-5m 0be 5lfk5-x [facility] 00:00:00 00:00:00 OSMAN e2-6vw8-16r 0eb-4eb1-a ealth 0-qt2mnu338 54f-658996 0f4 64ba33 2016-02-06 2016-02-06 Outpatient ALAM, [facility] [id number] [place] [address] 10:32:12 15:36:05 NAIMA [facility] 2016-01-30 2016-01-30 Outpatient TIMA, [facility] rck211jk-2n 003 03r49-0 [facility] 00:00:00 00:00:00 OSMAN 22-4926-a4f w86-7x39-u ealth f-[id number] 30e-776d1f alexander b29d1e 2016-01-28 2016-01-28 Outpatient [facility] [id number] [facility] 00:00:00 00:00:00 H, PROVIDER ea lth 2016-01-28 2016-01-28 Outpatient [facility] 5pi8s3d8-1q [id number] [facility] 00:00:00 00:00:00 H, PROVIDER e2-3st9-39m d0d-4c 90-b ealth 0-jo9tlo449 cac-4vp946 0f4 21fba1 2016-01-28 2016-01-28 Outpatient ZAGALA, [facility] [facility] 5df8h5f0-0h [id number] [id number] Access[facility] 00:00:00 00:00:00 MELVA e2-0he6-68g u85-0dm7-0 ealth 0-ss1tiu782 3g4-r384ff 0f4 5909cc 2016-01-28 2016-01-28 Outpatient TIMA, [facility] 4rk7c6z9-8f af0 [id number]-u Access[facility] 00:00:00 00:00:00 OSMAN e2-2xb3-20d 855-4c09-9 ealth 0-gd0dyh006 4p4-es6w22 0f4 dd65fd 2016-01-28 2016-01-28 Outpatient CONTRERAS, [facility] 7zb8a7i4-7l 2 [id number] Access[facility] 00:00:00 00:00:00 MIRTA e2-1zr7-30y 2t9-3y44-5 ealth 0-ss3pnp801 j20-p91x31 0f4 226cf1 2016-01-27 2016-01-27 Outpatient [facility] [id number] Access[facility] 00:00:00 00:00:00 H, PROVIDER [facility] 2016-01-27 2016-01-27 Outpatient [facility] 2fs3e1y2-4g [id number] Access[facility] 00:00:00 00:00:00 H, PROVIDER e2-7um7-15n 6ce-4b 28-b ealt 0-rk9zdd974 3x7-23c431 0f4 311f8d 2016-01-27 2016-01-27 Outpatient TIMA, [facility] [id number]-r Access[facility] 00:00:00 00:00:00 OSMAN 22-4926-a4f t30-60un-j ealth f-[id number] alexander [id number] 2016-01-21 2016-01-21 Outpatient [facility] [id number] Access[facility] 00:00:00 00:00:00 H, PROVIDER [facility] 2016-01-21 2016-01-21 Outpatient [facility] [id number] Access[facility] 00:00:00 00:00:00 H, PROVIDER e2-2mp1-38c be4-45 98-a [facility] 0-um9wfq742 79f-33e35e 0f4 b6a3ba 2016-01-21 2016-01-21 Outpatient JONAS, [facility] [id number] b0 [id number] Access[facility] 00:00:00 00:00:00 MAEVE Estrella-4926-a4f 971-46ae-b ealth f-[id number] 5db-ceb82a alexander [id number] 2016-01-21 2016-01-21 Outpatient OMORI, [facility] [id number] c83 [id number]-q Access[facility] 00:00:00 00:00:00 NAIF Sameer-4926-a4f 1x3-8h0z- b ealth f-[id number] 44d-88f26d alexander [id number] 2015-10-02 2015-10-02 Outpatient OMORI, [facility] [id number] c00 [id number] Access[facility] 00:00:00 00:00:00 NAIF Sameer-4926-a4f 809-4330- b ealth f-[id number]-uio336 alexander 9ebe0b 2015-10-01 2015-10-01 Outpatient [facility] [id number] Access[facility] 00:00:00 00:00:00 H, PROVIDER ea lth 2015-10-01 2015-10-01 Outpatient [facility] [id number] Access[facility] 00:00:00 00:00:00 H, PROVIDER gabby-3ey0-69v ed0-46 e6-9 [facility] 0-sa9xxa820 57e-4efa05 0f4 cgy504 2015-10-01 2015-10-01 Outpatient OMORI, [facility] [id number]-5b 83d zc8w8-g Access[facility] 00:00:00 00:00:00 NAIF 22-4926-a4f 3y7-27b8- 9 ealth f-[id number]-vi1012 alexander ay567b 2015-10-01 2015-10-01 Outpatient CONTRERAS, [facility] [id number]-5r 4 [id number]-9 Access[facility] 00:00:00 00:00:00 MIRTA 22-4926-a4f 2o7-8dl4-m ealt f-[id number] f64-5w85r8 alexander c704de 2015-09-26 2015-09-26 Outpatient [facility] [id number] Access[facility] 00:00:00 00:00:00 H, PROVIDER [facility] 2015-09-26 2015-09-26 Outpatient [facility] [id number] [id number] Access[facility] 00:00:00 00:00:00 H, PROVIDER gabby-4er1-98s 8ad-4b 20-9 [facility] 0-eo7uds081 0c8-l80d1d 0f4 1f3c6d 2015-09-26 2015-09-26 Outpatient DIANE, [facility] [id number]-4s 6 [id number] Access[facility] 00:00:00 00:00:00 MIRTA 22-4926-a4f 121-4c1d-b ealt f-[id number] k8g-1c7f73 alexander [id number] 2015-09-26 2015-09-26 Outpatient ZOE, [facility] [id number]-5p b24 [id number] Access[facility] 00:00:00 00:00:00 NAIF 22-4926-a4f 457-48de- a ealt f-[id number] o05-j01s4y alexander 2p735x 2015-09-12 2015-09-12 Outpatient [facility] [id number] Access[facility] 00:00:00 00:00:00 H, PROVIDER [facility] 2015-09-12 2015-09-12 Outpatient [facility] [id number] [id number] Access[facility] 00:00:00 00:00:00 H, PROVIDER gabby-4lu1-18f 126-41 a3-b ealt 0-jk8ipt038 [id number] 0f4 48d9d2 2015-08-21 2015-08-21 Outpatient [facility] [id number] Access[facility] 00:00:00 00:00:00 H, PROVIDER [facility] 2015-08-21 2015-08-21 Outpatient [facility] [id number] Access[facility] 00:00:00 00:00:00 H, PROVIDER gabby-3fg3-48h f2e-44 8f-b [facility] 0-hv1sxj590 x8z-27759w 0f4 e6de39 2015-05-22 2015-05-22 Outpatient [facility] [id number] Access 00:00:00 00:00:00 H, PROVIDER [facility] 2015-05-22 2015-05-22 Outpatient [facility] [id number] Access[facility] 00:00:00 00:00:00 H, PROVIDER gabby-8tq4-34s 2c0-43 14-b ealt 0-sl3neg806 73a-g74896 0f4 1acb06 2015-05-21 2015-05-21 Outpatient [facility] [id number] Access 00:00:00 00:00:00 H, PROVIDER [facility] 2015-05-21 2015-05-21 Outpatient [facility] 8wp3s8z1-3h [id number] Access[facility] 00:00:00 00:00:00 H, PROVIDER gabby-0zb3-31q 9f9-45 a3-8 [facility] 0-rv3kxl710 5bd-493e87 0f4 81s160 2015-05-03 2015-05-03 Outpatient HERNAEZ, [facility] 6du0h6b3-7v [id number] Access[facility] 15:36:00 15:36:00 MAEVE gabby-9ff5-29w p7g-3uh3-g ealt 0-kk6lhs988 [id number] 0f4 [id number] 7996-02-05 2015-05-03 Outpatient [facility] [id number] Access[facility] 00:00:00 00:00:00 H, PROVIDER casey lala 2015-05-03 2015-05-03 Outpatient [facility] [id number] [id number] Access[facility] 00:00:00 00:00:00 H, PROVIDER gabby-2lr6-74j da3-40 14-8 [facility] 0-fx0gos589 af9-3u0259 0f4 f3f5e9 2015-05-03 2015-05-03 Outpatient DIANE, [facility] 5qm1v7d5-7i 3 [id number] Access[facility] 00:00:00 00:00:00 MIRTA gabby-6tj9-16a j25-09k8-5 [facility] 0-ed7tge713 i8v-8en50g 0f4 e671aa 2015-03-20 2015-03-20 Outpatient [facility] [id number] Access 00:00:00 00:00:00 H, PROVIDER casey lala 2015-03-20 2015-03-20 Outpatient [facility] [id number] [id number] Access 00:00:00 00:00:00 H, PROVIDER april1wp5-04r da0-41 96-8 [facility] 0-kk9uqi823 65e-54ee37 0f4 [id number] 2015-03-15 2015-03-15 Outpatient [facility] [id number] Access 00:00:00 00:00:00 H, PROVIDER casey molina 2015-03-15 2015-03-15 Outpatient [facility] 1wq0b9p5-6k [id number] Access[facility] 00:00:00 00:00:00 H, PROVIDER april7kt6-55a 7a2-4a a9-b [facility] 0-bp7iip095 4z3-4b086x 0f4 4d45ed 2015-03-06 2015-03-06 Outpatient [facility] [id number] Access 00:00:00 00:00:00 H, PROVIDER casey [facility]ina 2015-03-06 2015-03-06 Outpatient [facility] [id number] Access[facility] 00:00:00 00:00:00 H, PROVIDER april3my0-92g fdb-4d 58-a [facility] 0-qg1obm109 a7t-57vl33 0f4 [id number] 2015-02-19 2015-02-19 Outpatient [facility] [id number] Access[facility] 00:00:00 00:00:00 H, PROVIDER casey lala 2015-02-19 2015-02-19 Outpatient [facility] [id number] Access[facility] 00:00:00 00:00:00 H, PROVIDER april9be2-49s 127-4b 58-a [facility] 0-aq9zjc047 8h7-k91bc0 0f4 e12e02 2015-02-18 2015-02-18 Outpatient [facility] [id number] Access 00:00:00 00:00:00 H, PROVIDER casey lala 2015-02-18 2015-02-18 Outpatient [facility] [id number] [id number] Access[facility] 00:00:00 00:00:00 H, PROVIDER april6dw3-79p d47-48 5c-8 [facility] 0-sp0wxv751 5cb-5cface 0f4 c58e5d 2015-02-12 2015-02-12 Outpatient [facility] [id number] Access 00:00:00 00:00:00 H, PROVIDER casey lala 2015-02-12 2015-02-12 Outpatient [facility] 3cn4t0s2-1k [id number] Access 00:00:00 00:00:00 H, PROVIDER april9uk0-52n 279-4f 28-b [facility] 0-bd1fcj360 ed6-28f39e 0f4 5fa5a5 2015-02-11 2015-02-11 Outpatient [facility] [id number] Access 00:00:00 00:00:00 H, PROVIDER casey lala 2015-02-11 2015-02-11 Outpatient [facility] 7bz0b1l7-2w [id number] Access 00:00:00 00:00:00 H, PROVIDER april1ha2-97d 925-41 78-b [facility] 0-mf2ywy081 2o9-2v7726 0f4 559f90 2015-02-06 2015-02-06 Outpatient [facility] [id number] Access[facility] 00:00:00 00:00:00 H, PROVIDER casey lala 2015-02-06 2015-02-06 Outpatient [facility] 6ar9m7c1-6e [id number] Access[facility] 00:00:00 00:00:00 H, PROVIDER e2-2ng5-97j 2a8-49 15-a [facility] 0-ko8ncf674 074-8vu476 0f4 e08d71 2015-01-24 2015-01-24 Outpatient [facility] [id number] Access 00:00:00 00:00:00 H, PROVIDER casey lala 2015-01-24 2015-01-24 Outpatient [facility] 5rs4x3e1-8s [id number] Access[facility] 00:00:00 00:00:00 H, PROVIDER e2-5mk5-42g f80-44 d8-a [facility] 0-mi8vro531 180-69000n 0f4 5c4c97 2015-01-08 2015-01-08 Outpatient [facility] [id number] Access 00:00:00 00:00:00 H, PROVIDER casey lala 2015-01-08 2015-01-08 Outpatient [facility] [id number] [id number] Access 00:00:00 00:00:00 H, PROVIDER e2-7cg2-91z 64f-4c a3-9 [facility] 0-hp8bzb094 z11-63op52 0f4 [id number] 2015-01-01 2015-01-01 Outpatient [facility] [id number] Access 00:00:00 00:00:00 H, PROVIDER casey lala 2015-01-01 2015-01-01 Outpatient [facility] 9bo0x9b8-2x [id number] Access[facility] 00:00:00 00:00:00 H, PROVIDER e2-3qb8-66w 53f-43 97-b [facility] 0-qp3ywi678 db7-57d315 0f4 2f88f9 2014-12-27 2014-12-27 Outpatient [facility] [id number] Access 00:00:00 00:00:00 H, PROVIDER casey lala 2014-12-27 2014-12-27 Outpatient [facility] 4xa8w8c9-3d [id number] Access[facility] 00:00:00 00:00:00 H, PROVIDER gabby-2ft0-11d ca7-44 22-9 [facility] 0-bf7hlu888 1w6-6b6027 0f4 3eed3a 2014-12-07 2014-12-07 Outpatient [facility] [id number] Access 00:00:00 00:00:00 H, PROVIDER casey lala 2014-12-07 2014-12-07 Outpatient [facility] [id number] [id number] Access[facility] 00:00:00 00:00:00 H, PROVIDER april6vc8-97p c82-4a dd-a [facility] 0-wr4fjx150 6ab-de3ca6 0f4 8aee2f 2014-05-08 2014-05-08 Outpatient [facility] [id number] Access 00:00:00 00:00:00 H, PROVIDER casey lala 2014-05-08 2014-05-08 Outpatient [facility] 0eq9u7z1-4w [id number] Access[facility] 00:00:00 00:00:00 H, PROVIDER gabby-0pq8-44a e34-45 36-8 [facility] 0-ww6odh773 537-378bc5 0f4 aa2e28 2014-04-26 2014-04-26 Outpatient [facility] [id number] Access 00:00:00 00:00:00 H, PROVIDER casey lala 2014-04-26 2014-04-26 Outpatient [facility] 3mm5e3g0-4n [id number]-q Access[facility] 00:00:00 00:00:00 H, PROVIDER april3px2-48d ed4-4c e6-b ealt 0-nh8cxy343 ef8-5a22de 0f4 4fecab 2014-04-25 2014-04-25 Outpatient [facility] [id number] Access 00:00:00 00:00:00 H, PROVIDER [facility] 2014-04-25 2014-04-25 Outpatient [facility] 9zo7x8q0-5y [id number] Access[facility] 00:00:00 00:00:00 H, PROVIDER e2-2hy0-24r 477-46 7f-9 [facility] 0-te5mei506 66f-fe43c4 0f4 574f68 2014-04-09 2014-04-09 Outpatient [facility] [id number] Access 00:00:00 00:00:00 H, PROVIDER [facility] 2014-04-09 2014-04-09 Outpatient [facility] 3ej1m2i6-5h [id number] Access 00:00:00 00:00:00 H, PROVIDER e2-3ra1-34y 783-44 d2-9 [facility] 0-io2efa297 318-8e962o 0f4 1208b1 2014-03-12 2014-03-12 Outpatient [facility] [id number] Access 00:00:00 00:00:00 H, PROVIDER [facility] 2014-03-12 2014-03-12 Outpatient [facility] 0io9l7q9-5c [id number] Access 00:00:00 00:00:00 H, PROVIDER e2-3fh7-18b d5c-45 e4-8 [facility] 0-oj2nia347 398-88915o 0f4 5668b3 Results Test Description Test Time Test Comments Results Result Comments Source TSH, THIRD GENERATION 2021-07-23 09:21:17 Test Item Value Reference Range Interpretation Comme nts TSH, THIRD GENERATION (test code = 2821) 2.780 UIU/ML 0.400-4.100 VITAMIN D, 25 [id number] 06:54:58 Test Item Value Reference Range Interpretation [...] . . . . NG/ML 30-100 LIPID [id number] 06:35:30 Test Item Value Reference Range Interpretation [...] MOREINFORMATION , SEE CLIENT ANNOUNCE MENT AT [email or web address] RISK RATIO LDL/HDL 2.45 RATIO <3.55 (test code = 2238) COMPREHENSIVE METABOLIC [id number] 06:35:30 Test Item Value Reference Range Interpretation Comments GLUCOSE (test code = 295 MG/DL 70-99 H 2216) BUN (test code = 77 MG/DL 6-20 H 2207) CREATININE (test 3.31 MG/DL 0.80-1.40 H code = 2214) eGFR (2020 CKD-EPI) 22 ML/MIN/1.73 >60 L (test code = 11845) CALC BUN/CREAT (test 23 RATIO 6-28 code = 2235) SODIUM (test code = 141 MEQ/L 310-170 0145) POTASSIUM (test code 5.4 MEQ/L 3.5-5.4 = 2227) CHLORIDE (test code 100 MEQ/L 95-107 = 2214) CARBON DIOXIDE (test 27 MEQ/L 19-31 code = 2206) CALCIUM (test code = 9.6 MG/DL 8.5-10.5 2208) PROTEIN, TOTAL (test 7.5 G/DL 6.1-8.3 code = 2228) ALBUMIN (test code = 4.0 G/DL 3.5-5.2 2200) CALC GLOBULIN (test 3.5 G/DL 1.9-3.7 code = 224) CALC A/G RATIO (test 1.1 RATIO 1.0-2.6 code = 2234) BILIRUBIN, TOTAL 0.6 MG/DL See_Comment [Automated message] (test code = 2206) The syste m which generated this result transmit josé luis reference range : <=1.2. The refe rence range was not u sed to interpret th is result as normal/abnormal . ALKALINE PHOSPHATASE 132 U/L 40-118 H (test code = 2203) AST (test code = 14 U/L 9-50 2217) ALT (test code = 17 U/L 5-50 2218) URIC [id number] 06:35:30 Test Item Value Reference Range Interpretation Comments URIC ACID (test code = 2232) 11.0 MG/DL 3.7-8.0 H HEMOGLOBIN [id number] 04:52:50 Test Item Value Reference Range Interpretation Comments HEMOGLOBIN A1c (test 11.1 % 4.2-5.6 H [facility] code = 85739) ASSOCIATION IDELINES FOR HGB A1C: PREDIABETES/INC REASED [...] OR LABORATORY CONS ULTATION. ALBUMIN/CREATININE RATIO, URINE, [id number] 04:35:05 Test Item Value Reference Range Interpretation Comments CREATININE, URINE, 36.1 MG/DL NOT ESTAB RANDOM (test code = 2072) ALBUMIN, URINE, 103.1 MG/DL NOT ESTAB RANDOM (test code = 32722) CALC 2856 MG/G <30 H Note: ALBUMIN/CREAT, RND Albumin/C reatinine ratio (test code = reference inter jamil 79191) reflects ADA and NKF guidelines. UNLESS OTHERWIS E INDICATED, ALL TESTING PERFORMED [facility] [address] [facility], [place] [address] LABORATORY DIR GENESIS: HANNAH SHARP M.D. CLIA NUMBER [id number] CAP ACCREDITATION N O. [id number] CBC W/AUTO DIFF WITH [id number] 03:41:46 Test Item Value Reference Range Interpretation [...] RBCS 0.00 K/UL 0.00-0.11 (test code = 08582) XR FOOT LEFT COMPLETE 3 [id number] 11:37:33 [facility] : 1975 Sex: MEXAMINATION:XR FOOT [...] by: Best Mendieta MD 05/05/2021 11:37 AM [facility] [id number] Description: Albumin/Creatinine Ratio,Urine 2021-01-30 17:11:00 Test Item Value Reference Range Interpretation Comments Creatinine, Urine 54.5 mg/dL Not Estab. (test code = 2161-8) Albumin, Urine 2814.8 ug/mL Not Estab. Results confi rmed (test code = ondilution.<br/ >
P 04354-4) erformed by:
[facility] ()

Alb/Creat Ratio 5165 mg/gcreat 0-29 H (test code = Normal: 9318-7) 0 - 29 Moderately incr eased: 30 - 300 Severely increa sed: >300

Perfo rmed by:
[employer] [place] ([place])

[facility] Description: Albumin/Creatinine Ratio,[id number] 17:11:00 Test Item Value Reference Range Interpretation Comments Creatinine, Urine 54.5 mg/dL Not Estab. (test code = 2161-8) Albumin, Urine 2814.8 ug/mL Not Estab. Results confi rmed (test code = ondilution.<br/ >
P 25858-8) erformed by:
[facility] ([place]

Alb/Creat Ratio 5165 mg/gcreat 0-29 H (test code = Normal: 9318-7) 0 - 29 Moderately incr eased: 30 - 300 Severely increa sed: >300

Perfo rmed by:
[employer] [place] ([place])

[facility] Description: Albumin/Creatinine Ratio,[id number] 17:11:00 Test Item Value Reference Range Interpretation Comments Creatinine, Urine 54.5 mg/dL Not Estab. (test code = 2161-8) Albumin, Urine 2814.8 ug/mL Not Estab. Results confi rmed (test code = ondilution.<br/ >
P 23230-1) erformed by:
[facility] ([place]

Alb/Creat Ratio 5165 mg/gcreat 0-29 H (test code = Normal: 9318-7) 0 - 29 Moderately incr eased: 30 - 300 Severely increa sed: >300

Perfo rmed by:
[facility] ([place])

[facility] Description: Albumin/Creatinine Ratio,[id number] 17:11:00 Test Item Value Reference Range Interpretation Comments Creatinine, Urine 54.5 mg/dL Not Estab. (test code = 2161-8) Albumin, Urine 2814.8 ug/mL Not Estab. Results confi rmed (test code = ondilution.<br/ >
P 51690-0) erformed by:
[facility] ([place])

Alb/Creat Ratio 5165 mg/gcreat 0-29 H (test code = Normal: 9318-7) 0 - 29 Moderately incr eased: 30 - 300 Severely increa sed: >300

Perfo rmed by:
[employer] [place] ([place])

[facility] Description: Albumin/Creatinine Ratio,[id number] 17:11:00 Test Item Value Reference Range Interpretation Comments Creatinine, Urine 54.5 mg/dL Not Estab. (test code = 2161-8) Albumin, Urine 2814.8 ug/mL Not Estab. Results confi rmed (test code = ondilution.<br/ >
P 57833-9) erformed by:
[facility] ([place])

Alb/Creat Ratio 5165 mg/gcreat 0-29 H (test code = Normal: 9318-7) 0 - 29 Moderately incr eased: 30 - 300 Severely increa sed: >300

Perfo rmed by:
[employer] [place] ([place])

[facility] Description: Albumin/Creatinine Ratio,[id number] 17:11:00 Test Item Value Reference Range Interpretation Comments Creatinine, Urine 54.5 mg/dL Not Estab. (test code = 2161-8) Albumin, Urine 2814.8 ug/mL Not Estab. Results confi rmed (test code = ondilution.<br/ >
P 91839-0) erformed by:
[facility] ([place])

Alb/Creat Ratio 5165 mg/gcreat 0-29 H (test code = Normal: 9318-7) 0 - 29 Moderately incr eased: 30 - 300 Severely increa sed: >300

Perfo rmed by:
[facility] ([place]

[facility] Description: Albumin/Creatinine Ratio,[id number] 17:11:00 Test Item Value Reference Range Interpretation Comments Creatinine, Urine 54.5 mg/dL Not Estab. (test code = 2161-8) Albumin, Urine 2814.8 ug/mL Not Estab. Results confi rmed (test code = ondilution.<br/ >
P 52241-4) erformed by:
[facility] ([place])

Alb/Creat Ratio 5165 mg/gcreat 0-29 H (test code = Normal: 9318-7) 0 - 29 Moderately incr eased: 30 - 300 Severely increa sed: >300

Perfo rmed by:
[facility] ([place]

[facility] Description: Albumin/Creatinine Ratio,[id number] 17:11:00 Test Item Value Reference Range Interpretation Comments Creatinine, Urine 54.5 mg/dL Not Estab. (test code = 2161-8) Albumin, Urine 2814.8 ug/mL Not Estab. Results confi rmed (test code = ondilution.<br/ >
P 89809-7) erformed by:
[facility] ([place]

Alb/Creat Ratio 5165 mg/gcreat 0-29 H (test code = Normal: 9318-7) 0 - 29 Moderately incr eased: 30 - 300 Severely increa sed: >300

Perfo rmed by:
[facility] ([place]

[facility] Description: Albumin/Creatinine Ratio,[id number] 17:11:00 Test Item Value Reference Range Interpretation Comments Creatinine, Urine 54.5 mg/dL Not Estab. (test code = 2161-8) Albumin, Urine 2814.8 ug/mL Not Estab. Results confi rmed (test code = ondilution.<br/ >
P 30951-3) erformed by:
[facility] ([place])

Alb/Creat Ratio 5165 mg/gcreat 0-29 H (test code = Normal: 9318-7) 0 - 29 Moderately incr eased: 30 - 300 Severely increa sed: >300

Perfo rmed by:
[facility] [place] ([place])

[facility] Description: Albumin/Creatinine Ratio,[id number] 17:11:00 Test Item Value Reference Range Interpretation Comments Creatinine, Urine 54.5 mg/dL Not Estab. (test code = 2161-8) Albumin, Urine 2814.8 ug/mL Not Estab. Results confi rmed (test code = ondilution.<br/ >
P 80085-1) erformed by:
[facility] ([place])

Alb/Creat Ratio 5165 mg/gcreat 0-29 H (test code = Normal: 9318-7) 0 - 29 Moderately incr eased: 30 - 300 Severely increa sed: >300

Perfo rmed by:
[facility]

[facility] Description: Albumin/Creatinine Ratio,[id number] 17:11:00 Test Item Value Reference Range Interpretation Comments Creatinine, Urine 54.5 mg/dL Not Estab. (test code = 2161-8) Albumin, Urine 2814.8 ug/mL Not Estab. Results confi rmed (test code = ondilution.<br/ >
P 82796-3) erformed by:
[facility] ([place])

Alb/Creat Ratio 5165 mg/gcreat 0-29 H (test code = Normal: 9318-7) 0 - 29 Moderately incr eased: 30 - 300 Severely increa sed: >300

Perfo rmed by:
[facility] ([place]

[facility] Description: Albumin/Creatinine Ratio,[id number] 17:11:00 Test Item Value Reference Range Interpretation Comments Creatinine, Urine 54.5 mg/dL Not Estab. (test code = 2161-8) Albumin, Urine 2814.8 ug/mL Not Estab. Results confi rmed (test code = ondilution.<br/ >
P 49264-6) erformed by:
[facility] ([place])

Alb/Creat Ratio 5165 mg/gcreat 0-29 H (test code = Normal: 9318-7) 0 - 29 Moderately incr eased: 30 - 300 Severely increa sed: >300

Perfo rmed by:
[facility] ([place])

[facility] Description: Natriuretic peptide B [Mass/volume] in Serum or [id number] 13:36:00 Test Item Value Reference Range Interpretation Comments B-Type Natriuretic Peptide (test 396.8 pg/mL 0.0-100.0 H code = 68395-5) [facility] Description: Natriuretic peptide B [Mass/volume] in Serum or [id number] 13:36:00 Test Item Value Reference Range Interpretation Comments B-Type Natriuretic Peptide (test 396.8 pg/mL 0.0-100.0 H code = 47570-9) [facility] Description: Natriuretic peptide B [Mass/volume] in Serum or [id number] 13:36:00 Test Item Value Reference Range Interpretation Comments B-Type Natriuretic Peptide (test 396.8 pg/mL 0.0-100.0 H code = 89105-0) [facility] Description: Natriuretic peptide B [Mass/volume] in Serum or [id number] 13:36:00 Test Item Value Reference Range Interpretation Comments B-Type Natriuretic Peptide (test 396.8 pg/mL 0.0-100.0 H code = 19870-2) [facility] Description: Natriuretic peptide B [Mass/volume] in Serum or [id number] 13:36:00 Test Item Value Reference Range Interpretation Comments B-Type Natriuretic Peptide (test 396.8 pg/mL 0.0-100.0 H code = 60845-3) [facility] Description: Natriuretic peptide B [Mass/volume] in Serum or [id number] 13:36:00 Test Item Value Reference Range Interpretation Comments B-Type Natriuretic Peptide (test 396.8 pg/mL 0.0-100.0 H code = 79309-3) [facility] Description: Natriuretic peptide B [Mass/volume] in Serum or [id number] 13:36:00 Test Item Value Reference Range Interpretation Comments B-Type Natriuretic Peptide (test 396.8 pg/mL 0.0-100.0 H code = 25072-7) [facility] Description: Natriuretic peptide B [Mass/volume] in Serum or [id number] 13:36:00 Test Item Value Reference Range Interpretation Comments B-Type Natriuretic Peptide (test 396.8 pg/mL 0.0-100.0 H code = 47622-8) [facility] Description: Natriuretic peptide B [Mass/volume] in Serum or [id number] 13:36:00 Test Item Value Reference Range Interpretation Comments B-Type Natriuretic Peptide (test 396.8 pg/mL 0.0-100.0 H code = 03532-4) [facility] Description: Natriuretic peptide B [Mass/volume] in Serum or [id number] 13:36:00 Test Item Value Reference Range Interpretation Comments B-Type Natriuretic Peptide (test 396.8 pg/mL 0.0-100.0 H code = 31749-7) [facility] Description: Natriuretic peptide B [Mass/volume] in Serum or [id number] 13:36:00 Test Item Value Reference Range Interpretation Comments B-Type Natriuretic Peptide (test 396.8 pg/mL 0.0-100.0 H code = 67873-7) [facility] Description: Natriuretic peptide B [Mass/volume] in Serum or [id number] 13:36:00 Test Item Value Reference Range Interpretation Comments B-Type Natriuretic Peptide (test 396.8 pg/mL 0.0-100.0 H code = 69659-5) [facility] Description: Hemoglobin A1c/Hemoglobin.total in Blood 2021-01-30 12:27:00 Test Item Value Reference Range Interpretation Comments Hemoglobin A1c (test code 8.7 % 4.8-5.6 H = 4548-4) . Prediabetes: 5. 7 - 6.4 Diabetes : >6.4 Glycemic control for adults with diabetes: <7.0

P erformed by:
[facility] ([place])

[facility] Description: Hemoglobin A1c/Hemoglobin.total in Blood 2021-01-30 12:27:00 Test Item Value Reference Range Interpretation Comments Hemoglobin A1c (test code 8.7 % 4.8-5.6 H = 4548-4) . Prediabetes: 5. 7 - 6.4 Diabetes : >6.4 Glycemic control for adults with diabetes: <7.0

P erformed by:
[facility] ([place])

[facility] Description: Hemoglobin A1c/Hemoglobin.total in Blood 2021-01-30 12:27:00 Test Item Value Reference Range Interpretation Comments Hemoglobin A1c (test code 8.7 % 4.8-5.6 H = 4548-4) . Prediabetes: 5. 7 - 6.4 Diabetes : >6.4 Glycemic control for adults with diabetes: <7.0

P erformed by:
[facility] ([place])

[facility] Description: Hemoglobin A1c/Hemoglobin.total in Blood 2021-01-30 12:27:00 Test Item Value Reference Range Interpretation Comments Hemoglobin A1c (test code 8.7 % 4.8-5.6 H = 4548-4) . Prediabetes: 5. 7 - 6.4 Diabetes : >6.4 Glycemic control for adults with diabetes: <7.0

P erformed by:
[facility] ([place])

[facility] Description: Hemoglobin A1c/Hemoglobin.total in Blood 2021-01-30 12:27:00 Test Item Value Reference Range Interpretation Comments Hemoglobin A1c (test code 8.7 % 4.8-5.6 H = 4548-4) . Prediabetes: 5. 7 - 6.4 Diabetes : >6.4 Glycemic control for adults with diabetes: <7.0

P erformed by:
[facility] ([place])

[facility] Description: Hemoglobin A1c/Hemoglobin.total in Blood 2021-01-30 12:27:00 Test Item Value Reference Range Interpretation Comments Hemoglobin A1c (test code 8.7 % 4.8-5.6 H = 4548-4) . Prediabetes: 5. 7 - 6.4 Diabetes : >6.4 Glycemic control for adults with diabetes: <7.0

P erformed by:
[facility] ([place])

[facility] Description: Hemoglobin A1c/Hemoglobin.total in Blood 2021-01-30 12:27:00 Test Item Value Reference Range Interpretation Comments Hemoglobin A1c (test code 8.7 % 4.8-5.6 H = 4548-4) . Prediabetes: 5. 7 - 6.4 Diabetes : >6.4 Glycemic control for adults with diabetes: <7.0

P erformed by:
[facility] ([place])

[facility] Description: Hemoglobin A1c/Hemoglobin.total in Blood 2021-01-30 12:27:00 Test Item Value Reference Range Interpretation Comments Hemoglobin A1c (test code 8.7 % 4.8-5.6 H = 4548-4) . Prediabetes: 5. 7 - 6.4 Diabetes : >6.4 Glycemic control for adults with diabetes: <7.0

P erformed by:
[facility] [place] ([place])

[facility] Description: Hemoglobin A1c/Hemoglobin.total in Blood 2021-01-30 12:27:00 Test Item Value Reference Range Interpretation Comments Hemoglobin A1c (test code 8.7 % 4.8-5.6 H = 4548-4) . Prediabetes: 5. 7 - 6.4 Diabetes : >6.4 Glycemic control for adults with diabetes: <7.0

P erformed by:
[facility] ([place])

[facility] Description: Hemoglobin A1c/Hemoglobin.total in Blood 2021-01-30 12:27:00 Test Item Value Reference Range Interpretation Comments Hemoglobin A1c (test code 8.7 % 4.8-5.6 H = 4548-4) . Prediabetes: 5. 7 - 6.4 Diabetes : >6.4 Glycemic control for adults with diabetes: <7.0

P erformed by:
[facility] [place] ([place])

[facility] Description: Hemoglobin A1c/Hemoglobin.total in Blood 2021-01-30 12:27:00 Test Item Value Reference Range Interpretation Comments Hemoglobin A1c (test code 8.7 % 4.8-5.6 H = 4548-4) . Prediabetes: 5. 7 - 6.4 Diabetes : >6.4 Glycemic control for adults with diabetes: <7.0

P erformed by:
[facility] [place] ([place])

[facility] Description: Hemoglobin A1c/Hemoglobin.total in Blood 2021-01-30 12:27:00 Test Item Value Reference Range Interpretation Comments Hemoglobin A1c (test code 8.7 % 4.8-5.6 H = 4548-4) . Prediabetes: 5. 7 - 6.4 Diabetes : >6.4 Glycemic control for adults with diabetes: <7.0

P erformed by:
[facility] ()

[facility] Description: C reactive protein [Mass/volume] in Serum or [id number] 04:53:00 Test Item Value Reference Range Interpretation Comments C-Reactive Protein, Quant (test code 13 mg/L 0-10 H = 1988-) [facility] Description: C reactive protein [Mass/volume] in Serum or [id number] 04:53:00 Test Item Value Reference Range Interpretation Comments C-Reactive Protein, Quant (test code 13 mg/L 0-10 H = 1987-07) [facility] Description: C reactive protein [Mass/volume] in Serum or [id number] 04:53:00 Test Item Value Reference Range Interpretation Comments C-Reactive Protein, Quant (test code 13 mg/L 0-10 H = 1987-07) [facility] Description: C reactive protein [Mass/volume] in Serum or [id number] 04:53:00 Test Item Value Reference Range Interpretation Comments C-Reactive Protein, Quant (test code 13 mg/L 0-10 H = 1987-07) [facility] Description: C reactive protein [Mass/volume] in Serum or [id number] 04:53:00 Test Item Value Reference Range Interpretation Comments C-Reactive Protein, Quant (test code 13 mg/L 0-10 H = 1987-07) [facility] Description: C reactive protein [Mass/volume] in Serum or [id number] 04:53:00 Test Item Value Reference Range Interpretation Comments C-Reactive Protein, Quant (test code 13 mg/L 0-10 H = 1987-07) [facility] Description: C reactive protein [Mass/volume] in Serum or [id number] 04:53:00 Test Item Value Reference Range Interpretation Comments C-Reactive Protein, Quant (test code 13 mg/L 0-10 H = 1987-07) [facility] Description: C reactive protein [Mass/volume] in Serum or [id number] 04:53:00 Test Item Value Reference Range Interpretation Comments C-Reactive Protein, Quant (test code 13 mg/L 0-10 H = 1987-07) [facility] Description: C reactive protein [Mass/volume] in Serum or [id number] 04:53:00 Test Item Value Reference Range Interpretation Comments C-Reactive Protein, Quant (test code 13 mg/L 0-10 H = 1987-07) [facility] Description: C reactive protein [Mass/volume] in Serum or [id number] 04:53:00 Test Item Value Reference Range Interpretation Comments C-Reactive Protein, Quant (test code 13 mg/L 0-10 H = 1987-07) [facility] Description: C reactive protein [Mass/volume] in Serum or [id number] 04:53:00 Test Item Value Reference Range Interpretation Comments C-Reactive Protein, Quant (test code 13 mg/L 0-10 H = 1987-07) [facility] Description: C reactive protein [Mass/volume] in Serum or [id number] 04:53:00 Test Item Value Reference Range Interpretation Comments C-Reactive Protein, Quant (test code 13 mg/L 0-10 H = 1987-07) [facility] Description: 25-hydroxyvitamin D3 [Mass/volume] in Serum or [id number] 03:48:00 Test Item Value Reference Range Interpretation Comments Vitamin D, 17.6 ng/mL 30.0-100.0 L Vitamin D defic iency has 25-Hydroxy (test been define d by the code = 04484-6) [place] [employer] and an Endocrine [facility] practice guidel ine as alevel of serum 25-OH vitamin D less than 20 ng/mL (1,2).The Endocrine Society went on to further define vitamin Dinsufficiency as a level between 21 and 29 ng/mL (2).1. IOM (Ins titute of Medicine). 2010 . Dietary reference int akes for calcium and D. [place]: [employer] .2. Dileep MF, Ela NC, Chichi-Augie blake EMERSON, et al. Evaluatio n, treatment, and prevention of vitamin D deficiency: an Endocrine Society clinica l practice guideline. [place] EM. 2010; 96(7):1911-30.< br/>
P erformed by:
[facility] ()

[facility]: 25-hydroxyvitamin D3 [Mass/volume] in Serum or [id number] 03:48:00 Test Item Value Reference Range Interpretation Comments Vitamin D, 17.6 ng/mL 30.0-100.0 L Vitamin D defic iency has 25-Hydroxy (test been define d by the code = 12551-5) [place] [employer] and an Endocrine [facility] practice guidel ine as alevel of serum 25-OH vitamin D less than 20 ng/mL (1,2).The Endocrine Society went on to further define vitamin Dinsufficiency as a level between 21 and 29 ng/mL (2).1. IOM (Ins titute of Medicine). 2010 . Dietary reference int akes for calcium and D. [facility]: [employer] .2. Ela Oliveros, Stephane EMERSON, et al. Evaluatio n, treatment, and prevention of vitamin D deficiency: an Endocrine Society clinica l practice guideline. EM. 2010; 96(7):191-.< br/>
P erformed by:
[facility] ([place])

[facility] Description: 25-hydroxyvitamin D3 [Mass/volume] in Serum or [id number] 03:48:00 Test Item Value Reference Range Interpretation Comments Vitamin D, 17.6 ng/mL 30.0-100.0 L Vitamin D defic iency has 25-Hydroxy (test been define d by the code = 34419-4) [place] [employer] and an Endocrine [facility] practice guidel ine as alevel of serum 25-OH vitamin D less than 20 ng/mL (1,2).The Endocrine Society went on to further define vitamin Dinsufficiency as a level between 21 and 29 ng/mL (2).1. IOM (Ins titute of Medicine). 2010 . Dietary reference int akes for calcium and D. [facility]: [employer] .2. Ela Olievros, Stephane EMERSON, et al. Evaluatio n, treatment, and prevention of vitamin D deficiency: an Endocrine Society clinica l practice guideline. EM. 2010; 96(7):191-30.< br/>
P erformed by:
[facility] ([place])

[facility] Description: 25-hydroxyvitamin D3 [Mass/volume] in Serum or [id number] 03:48:00 Test Item Value Reference Range Interpretation Comments Vitamin D, 17.6 ng/mL 30.0-100.0 L Vitamin D defic iency has 25-Hydroxy (test been define d by the code = 66249-1) [place] [employer] and an Endocrine [facility] practice guidel ine as alevel of serum 25-OH vitamin D less than 20 ng/mL (1,2).The Endocrine Society went on to further define vitamin Dinsufficiency as a level between 21 and 29 ng/mL (2).1. IOM (Ins titute of Medicine). 2010 . Dietary reference int akes for calcium and D. [facility]: [employer] .2. Ela Oliveros, Stephane EMERSON, et al. Evaluatio n, treatment, and prevention of vitamin D deficiency: an Endocrine Society clinica l practice guideline. [place] EM. 2010; 96(7):1911-30.< br/>
P erformed by:
[facility] ([place])

[facility] Description: 25-hydroxyvitamin D3 [Mass/volume] in Serum or [id number] 03:48:00 Test Item Value Reference Range Interpretation Comments Vitamin D, 17.6 ng/mL 30.0-100.0 L Vitamin D defic iency has 25-Hydroxy (test been define d by the code = 25807-5) [employer] and an Endocrine [facility] practice guidel ine as alevel of serum 25-OH vitamin D less than 20 ng/mL (1,2).The Endocrine Society went on to further define vitamin Dinsufficiency as a level between 21 and 29 ng/mL (2).1. IOM (Ins titute of Medicine). 2010 . Dietary reference int akes for calcium and D. [place]: [employer] .2. Ela Oliveros, Stephane EMERSON, et al. Evaluatio n, treatment, and prevention of vitamin D deficiency: an Endocrine Society clinica l practice guideline. [place] EM. 2010; 96(7):1911-30.< br/>
P erformed by:
[facility] ([place])

[facility] Description: 25-hydroxyvitamin D3 [Mass/volume] in Serum or [id number] 03:48:00 Test Item Value Reference Range Interpretation Comments Vitamin D, 17.6 ng/mL 30.0-100.0 L Vitamin D defic iency has 25-Hydroxy (test been define d by the code = 53163-0) [employer] and an Endocrine [facility] practice guidel ine as alevel of serum 25-OH vitamin D less than 20 ng/mL (1,2).The Endocrine Society went on to further define vitamin Dinsufficiency as a level between 21 and 29 ng/mL (2).1. IOM (Ins [facility]). 2010 . Dietary reference int akes for calcium and D. [facility]: [employer] .2. Ela Oliveros, Stephane EMERSON, et al. Evaluatio n, treatment, and prevention of vitamin D deficiency: an Endocrine Society clinica l practice guideline. [place] EM. 2010; 96(7):191-.< br/>
P erformed by:
[facility] ([place])

[facility] Description: 25-hydroxyvitamin D3 [Mass/volume] in Serum or [id number] 03:48:00 Test Item Value Reference Range Interpretation Comments Vitamin D, 17.6 ng/mL 30.0-100.0 L Vitamin D defic iency has 25-Hydroxy (test been define d by the code = 31210-1) [employer] and an Endocrine [facility] practice guidel ine as alevel of serum 25-OH vitamin D less than 20 ng/mL (1,2).The Endocrine Society went on to further define vitamin Dinsufficiency as a level between 21 and 29 ng/mL (2).1. IOM (Ins [facility]). 2010 . Dietary reference int akes for calcium and D. [facility]: [employer] .2. Ela Oliveros, Stephane EMERSON, et al. Evaluatio n, treatment, and prevention of vitamin D deficiency: an Endocrine Society clinica l practice guideline. [place] EM. 2010; 96(7):191-.< br/>
P erformed by:
[facility] ([place])

[facility] Description: 25-hydroxyvitamin D3 [Mass/volume] in Serum or [id number] 03:48:00 Test Item Value Reference Range Interpretation Comments Vitamin D, 17.6 ng/mL 30.0-100.0 L Vitamin D defic iency has 25-Hydroxy (test been define d by the code = 85074-0) [employer] and an Endocrine So ciety practice guidel ine as alevel of serum 25-OH vitamin D less than 20 ng/mL (1,2).The Endocrine Society went on to further define vitamin Dinsufficiency as a level between 21 and 29 ng/mL (2).1. IOM (Ins titute of Medicine). 2010 . Dietary reference int akes for calcium and D. [place]: [employer] .2. Ela Oliveros, Stephane EMERSON, et al. Evaluatio n, treatment, and prevention of vitamin D deficiency: an Endocrine Society clinica l practice guideline. EM. 2010; 96(7):1911-30.< br/>
P erformed by:
[facility] ([place])

[facility] Description: 25-hydroxyvitamin D3 [Mass/volume] in Serum or [id number] 03:48:00 Test Item Value Reference Range Interpretation Comments Vitamin D, 17.6 ng/mL 30.0-100.0 L Vitamin D defic iency has 25-Hydroxy (test been define d by the code = 11647-8) [place] [employer] and an Endocrine [facility] practice guidel ine as alevel of serum 25-OH vitamin D less than 20 ng/mL (1,2).The Endocrine Society went on to further define vitamin Dinsufficiency as a level between 21 and 29 ng/mL (2).1. IOM (Ins titute of Medicine). 2010 . Dietary reference int akes for calcium and D. [place]: [employer] .2. Ela Oliveros, Stephane EMERSON, et al. Evaluatio n, treatment, and prevention of vitamin D deficiency: an Endocrine Society clinica l practice guideline. EM. 2010; 96(7):1911-30.< br/>
P erformed by:
[facility] ([place])

[facility] Description: 25-hydroxyvitamin D3 [Mass/volume] in Serum or [id number] 03:48:00 Test Item Value Reference Range Interpretation Comments Vitamin D, 17.6 ng/mL 30.0-100.0 L Vitamin D defic iency has 25-Hydroxy (test been define d by the code = 50030-3) [employer] and an Endocrine So ciety practice guidel ine as alevel of serum 25-OH vitamin D less than 20 ng/mL (1,2).The Endocrine Society went on to further define vitamin Dinsufficiency as a level between 21 and 29 ng/mL (2).1. IOM (Ins titute of Medicine). 2010 . Dietary reference int akes for calcium and D. [place]: [employer] .2. Ela Oliveros, Stephane EMERSON, et al. Evaluatio n, treatment, and prevention of vitamin D deficiency: an Endocrine Society clinica l practice guideline. [place] EM. 2010; 96(9):1911-30.< br/>
P erformed by:
[facility] [place] ([place])

[facility] Description: 25-hydroxyvitamin D3 [Mass/volume] in Serum or [id number] 03:48:00 Test Item Value Reference Range Interpretation Comments Vitamin D, 17.6 ng/mL 30.0-100.0 L Vitamin D defic iency has 25-Hydroxy (test been define d by the code = 55558-7) [employer] [employer] and an Endocrine [facility] practice guidel ine as alevel of serum 25-OH vitamin D less than 20 ng/mL (1,2).The Endocrine Society went on to further define vitamin Dinsufficiency as a level between 21 and 29 ng/mL (2).1. IOM (Ins titute of Medicine). 2010 . Dietary reference int akes for calcium and D. [place]: [employer] .2. Ela Oliveros, Chichi-Augie EMERSON, et al. Evaluatio n, treatment, and prevention of vitamin D deficiency: an Endocrine Society clinica l practice guideline. EM. 2010; 96(7):1911-30.< br/>
P erformed by:
[facility] ([place])

[facility] Description: 25-hydroxyvitamin D3 [Mass/volume] in Serum or [id number] 03:48:00 Test Item Value Reference Range Interpretation Comments Vitamin D, 17.6 ng/mL 30.0-100.0 L Vitamin D defic iency has 25-Hydroxy (test been define d by the code = 71753-3) [employer] [employer] and an Endocrine So ciety practice guidel ine as alevel of serum 25-OH vitamin D less than 20 ng/mL (1,2).The Endocrine Society went on to further define vitamin Dinsufficiency as a level between 21 and 29 ng/mL (2).1. IOM (Ins titute of Medicine). 2010 . Dietary reference int akes for calcium and D. [place]: [employer] .2. Dileep MF, Ela SANTA, Stephane blake EMERSON, et al. Evaluatio n, treatment, and prevention of vitamin D deficiency: an Endocrine Society clinica l practice guideline. EM. 2010; 96(7):1911-30.< br/>
P erformed by:
[facility] ([place])

[facility] Description: Erythrocyte sedimentation rate by Westergren [id number] 03:06:00 Test Item Value Reference Range Interpretation Comments Sedimentation Rate-Westergren (test 27 mm/hr 0-15 H code = 4537-7) [facility] Description: Erythrocyte sedimentation rate by Westergren [id number] 03:06:00 Test Item Value Reference Range Interpretation Comments Sedimentation Rate-Westergren (test 27 mm/hr 0-15 H code = 4537-7) [facility] Description: Erythrocyte sedimentation rate by Westergren [id number] 03:06:00 Test Item Value Reference Range Interpretation Comments Sedimentation Rate-Westergren (test 27 mm/hr 0-15 H code = 4537-7) [facility] Description: Erythrocyte sedimentation rate by Westergren [id number] 03:06:00 Test Item Value Reference Range Interpretation Comments Sedimentation Rate-Westergren (test 27 mm/hr 0-15 H code = 4537-7) [facility] Description: Erythrocyte sedimentation rate by Westergren [id number] 03:06:00 Test Item Value Reference Range Interpretation Comments Sedimentation Rate-Westergren (test 27 mm/hr 0-15 H code = 4537-7) [facility] Description: Erythrocyte sedimentation rate by Westergren [id number] 03:06:00 Test Item Value Reference Range Interpretation Comments Sedimentation Rate-Westergren (test 27 mm/hr 0-15 H code = 4537-7) [facility] Description: Erythrocyte sedimentation rate by Westergren [id number] 03:06:00 Test Item Value Reference Range Interpretation Comments Sedimentation Rate-Westergren (test 27 mm/hr 0-15 H code = 4537-7) [facility] Description: Erythrocyte sedimentation rate by Westergren [id number] 03:06:00 Test Item Value Reference Range Interpretation Comments Sedimentation Rate-Westergren (test 27 mm/hr 0-15 H code = 4537-7) [facility] Description: Erythrocyte sedimentation rate by Westergren [id number] 03:06:00 Test Item Value Reference Range Interpretation Comments Sedimentation Rate-Westergren (test 27 mm/hr 0-15 H code = 4537-7) [facility] Description: Erythrocyte sedimentation rate by Westergren [id number] 03:06:00 Test Item Value Reference Range Interpretation Comments Sedimentation Rate-Westergren (test 27 mm/hr 0-15 H code = 4537-7) [facility] Description: Erythrocyte sedimentation rate by Westergren [id number] 03:06:00 Test Item Value Reference Range Interpretation Comments Sedimentation Rate-Westergren (test 27 mm/hr 0-15 H code = 4537-7) [facility] Description: Erythrocyte sedimentation rate by Westergren [id number] 03:06:00 Test Item Value Reference Range Interpretation Comments Sedimentation Rate-Westergren (test 27 mm/hr 0-15 H code = 4537-7) [facility] Description: Comp. Metabolic Panel (14)2021-01-30 02:57:00 Test Item Value Reference Range Interpretation Comments Glucose (test code 256 mg/dL 65-99 H = 2345-7) BUN (test code = 57 mg/dL 6-24 H 3094-0) Creatinine (test 2.38 mg/dL 0.76-1.27 H code = 2160-0) eGFR If NonAfricn 31 >59 L Am (test code = mL/min/1.73 82569-7) eGFR If Africn Am 36 >59 L In accor dance with (test code = mL/min/1.73 recommendations from 12893-0) the NKF-ASN Tas k force, [facility] is in the process of updating its eG FR calculation to the 2020 CKD-EPI creatinine equa tion that estimates kidney function witho ut a race variable.
< br/>Per formed by:
[facility] ([place])

BUN/Creatinine 24 9-20 H Ratio (test code = 3097-3) Sodium (test code = 139 mmol/L 049-851 1303-2) Potassium (test 4.9 mmol/L 3.5-5.2 code = 2823-3) Chloride (test code 100 mmol/L 96-106 = 2075-0) Carbon Dioxide, 23 mmol/L 20-29 Total (test code = 2027-9) Calcium (test code 9.0 mg/dL 8.7-10.2 = 89170-9) Protein, Total 6.5 g/dL 6.0-8.5 (test code = 2885-2) Albumin (test code 3.4 g/dL 4.0-5.0 L = 1751-7) Globulin, Total 3.1 g/dL 1.5-4.5 (test code = 76945-6) A/G Ratio (test 1.1 1.2-2.2 L code = 1759-0) Bilirubin, Total 0.4 mg/dL 0.0-1.2 (test code = 1975-2) Alkaline 124 IU/L 44-121 H Phosphatase (test Pl ease note code = 6768-6) reference int erval change
<b r/>Perf ormed by:
[facility] ([place])

AST (SGOT) (test 17 IU/L 0-40 code = 1920-8) ALT (SGPT) (test 23 IU/L 0-44 code = 1742-6) [facility] Description: Phosphate [Mass/volume] in Serum or Plasma 2021-01-30 02:57:00 Test Item Value Reference Range Interpretation Comments Phosphorus (test code = 2777-1) 4.5 mg/dL 2.8-4.1 H [facility] Description: Magnesium [Mass/volume] in Serum or Plasma 2021-01-30 02:57:00 Test Item Value Reference Range Interpretation Comments Magnesium (test code = 04928-5) 1.8 mg/dL 1.6-2.3 [facility] Description: Microscopic [id number] 02:57:00 Test Item Value Reference Range Interpretation Comments WBC (test code = 5821-4) None seen 0-5 RBC (test code = 78035-8) None seen 0-2 Epithelial Cells (non renal) (test None seen 0-10 code = 5787-7) Epithelial Cells (renal) (test code = 53081-3) Casts (test code = 82331-2) None seen None seen Cast Type (test code = 05302-0) Crystals (test code = 5783-6) Crystal Type (test code = 5782-8) Mucus Threads (test code = 8247-9) Bacteria (test code = 5769-5) None seen None seen/Few Yeast (test code = 5822-2) Trichomonas (test code = 5813-1) Comment (test code = 90926-8) [facility] Description: Urate [Mass/volume] in Serum or [id number] 02:57:00 Test Item Value Reference Range Interpretation Comments Uric Acid (test 11.5 mg/dL 3.8-8.4 H code = 3084-1) Therapeutic t arget for gout patients: <6.0

P erformed by:
[facility] ([place])

[facility] Description: Comp. Metabolic Panel (14)2021-01-30 02:57:00 Test Item Value Reference Range Interpretation Comments Glucose (test code 256 mg/dL 65-99 H = 2345-7) BUN (test code = 57 mg/dL 6-24 H 3094-0) Creatinine (test 2.38 mg/dL 0.76-1.27 H code = 2160-0) eGFR If NonAfricn 31 >59 L Am (test code = mL/min/1.73 99266-8) eGFR If Africn Am 36 >59 L In accor dance with (test code = mL/min/1.73 recommendations from 22785-5) the NKF-ASN Tas k force, [facility] is in the process of updating its eG FR calculation to the 2020 CKD-EPI creatinine equa tion that estimates kidney function witho ut a race variable.
< br/>Per formed by:
[facility] ([place])

BUN/Creatinine 24 9-20 H Ratio (test code = 3097-3) Sodium (test code = 139 mmol/L 469-099 6631-2) Potassium (test 4.9 mmol/L 3.5-5.2 code = 2823-3) Chloride (test code 100 mmol/L 96-106 = 2075-0) Carbon Dioxide, 23 mmol/L 20-29 Total (test code = 2027-) Calcium (test code 9.0 mg/dL 8.7-10.2 = 79194-9) Protein, Total 6.5 g/dL 6.0-8.5 (test code = 2885-2) Albumin (test code 3.4 g/dL 4.0-5.0 L = 1751-7) Globulin, Total 3.1 g/dL 1.5-4.5 (test code = 65310-9) A/G Ratio (test 1.1 1.2-2.2 L code = 1759-0) Bilirubin, Total 0.4 mg/dL 0.0-1.2 (test code = 1974-2) Alkaline 124 IU/L 44-121 H Phosphatase (test Pl ease note code = 6768-6) reference int erval change
<b r/>Perf ormed by:
[facility] ([place])

AST (SGOT) (test 17 IU/L 0-40 code = 1920-8) ALT (SGPT) (test 23 IU/L 0-44 code = 1742-6) [facility] Description: Phosphate [Mass/volume] in Serum or Plasma 2021-01-30 02:57:00 Test Item Value Reference Range Interpretation Comments Phosphorus (test code = 2777-1) 4.5 mg/dL 2.8-4.1 H [facility] Description: Magnesium [Mass/volume] in Serum or Plasma 2021-01-30 02:57:00 Test Item Value Reference Range Interpretation Comments Magnesium (test code = 38298-8) 1.8 mg/dL 1.6-2.3 [facility] Description: Microscopic Dqhhfqrxrbp1643-20-60 02:57:00 Test Item Value Reference Range Interpretation Comments WBC (test code = 5821-4) None seen 0-5 RBC (test code = 30146-3) None seen 0-2 Epithelial Cells (non renal) (test None seen 0-10 code = 5787-7) Epithelial Cells (renal) (test code = 93675-5) Casts (test code = 74202-0) None seen None seen Cast Type (test code = 25759-3) Crystals (test code = 5783-6) Crystal Type (test code = 5782-8) Mucus Threads (test code = 8247-9) Bacteria (test code = 5769-5) None seen None seen/Few Yeast (test code = 5822-2) Trichomonas (test code = 5813-1) Comment (test code = 40469-5) [facility] Description: Urate [Mass/volume] in Serum or Fjyomn9087-45-96 02:57:00 Test Item Value Reference Range Interpretation Comments Uric Acid (test 11.5 mg/dL 3.8-8.4 H code = 3084-1) Therapeutic t arget for gout patients: <6.0

P erformed by:
[facility] ([place])

[facility] Description: Comp. Metabolic Panel (14)2021-01-30 02:57:00 Test Item Value Reference Range Interpretation Comments Glucose (test code 256 mg/dL 65-99 H = 2345-7) BUN (test code = 57 mg/dL 6-24 H 3094-0) Creatinine (test 2.38 mg/dL 0.76-1.27 H code = 2160-0) eGFR If NonAfricn 31 >59 L Am (test code = mL/min/1.73 39535-3) eGFR If Africn Am 36 >59 L In accor dance with (test code = mL/min/1.73 recommendations from 17673-8) the NKF-ASN Tas k force, [facility] is in the process of updating its eG FR calculation to the 2020 CKD-EPI creatinine equa tion that estimates kidney function witho ut a race variable.
< br/>Per formed by:
[facility] ([place])

BUN/Creatinine 24 9-20 H Ratio (test code = 3097-3) Sodium (test code = 139 mmol/L 425-515 3779-2) Potassium (test 4.9 mmol/L 3.5-5.2 code = 2823-3) Chloride (test code 100 mmol/L 96-106 = 2075-0) Carbon Dioxide, 23 mmol/L 20-29 Total (test code = 2027-) Calcium (test code 9.0 mg/dL 8.7-10.2 = 97705-0) Protein, Total 6.5 g/dL 6.0-8.5 (test code = 2885-2) Albumin (test code 3.4 g/dL 4.0-5.0 L = 1751-7) Globulin, Total 3.1 g/dL 1.5-4.5 (test code = 57244-4) A/G Ratio (test 1.1 1.2-2.2 L code = 1759-0) Bilirubin, Total 0.4 mg/dL 0.0-1.2 (test code = 1975-2) Alkaline 124 IU/L 44-121 H Phosphatase (test Pl ease note code = 6768-6) reference int erval change
<b r/>Perf ormed by:
[facility] ([place])

AST (SGOT) (test 17 IU/L 0-40 code = 1920-8) ALT (SGPT) (test 23 IU/L 0-44 code = 1742-6) [facility] Description: Phosphate [Mass/volume] in Serum or Plasma 2021-01-30 02:57:00 Test Item Value Reference Range Interpretation Comments Phosphorus (test code = 2777-1) 4.5 mg/dL 2.8-4.1 H [facility] Description: Magnesium [Mass/volume] in Serum or Plasma 2021-01-30 02:57:00 Test Item Value Reference Range Interpretation Comments Magnesium (test code = 17233-4) 1.8 mg/dL 1.6-2.3 [facility] Description: Microscopic Zzvwtnsxcbq7824-36-15 02:57:00 Test Item Value Reference Range Interpretation Comments WBC (test code = 5821-4) None seen 0-5 RBC (test code = 10080-6) None seen 0-2 Epithelial Cells (non renal) (test None seen 0-10 code = 5787-7) Epithelial Cells (renal) (test code = 51259-7) Casts (test code = 40523-1) None seen None seen Cast Type (test code = 05906-2) Crystals (test code = 5783-6) Crystal Type (test code = 5782-8) Mucus Threads (test code = 8247-9) Bacteria (test code = 5769-5) None seen None seen/Few Yeast (test code = 5822-2) Trichomonas (test code = 5813-1) Comment (test code = 30343-5) [facility] Description: Urate [Mass/volume] in Serum or Ksffue4810-43-25 02:57:00 Test Item Value Reference Range Interpretation Comments Uric Acid (test 11.5 mg/dL 3.8-8.4 H code = 3084-1) Therapeutic t arget for gout patients: <6.0

P erformed by:
[facility] ([place])

[facility] Description: Comp. Metabolic Panel (14)2021-01-30 02:57:00 Test Item Value Reference Range Interpretation Comments Glucose (test code 256 mg/dL 65-99 H = 2345-7) BUN (test code = 57 mg/dL 6-24 H 3094-0) Creatinine (test 2.38 mg/dL 0.76-1.27 H code = 2160-0) eGFR If NonAfricn 31 >59 L Am (test code = mL/min/1.73 01210-7) eGFR If Africn Am 36 >59 L In accor dance with (test code = mL/min/1.73 recommendations from 97420-1) the NKF-ASN Tas k force, [facility] is in the process of updating its eG FR calculation to the 2020 CKD-EPI creatinine equa tion that estimates kidney function witho ut a race variable.
< br/>Per formed by:
[facility] ([place])

BUN/Creatinine 24 9-20 H Ratio (test code = 3097-3) Sodium (test code = 139 mmol/L 659-572 9439-2) Potassium (test 4.9 mmol/L 3.5-5.2 code = 2823-3) Chloride (test code 100 mmol/L 96-106 = 2075-0) Carbon Dioxide, 23 mmol/L 20-29 Total (test code = 2027-) Calcium (test code 9.0 mg/dL 8.7-10.2 = 07236-9) Protein, Total 6.5 g/dL 6.0-8.5 (test code = 2885-2) Albumin (test code 3.4 g/dL 4.0-5.0 L = 1751-7) Globulin, Total 3.1 g/dL 1.5-4.5 (test code = 70259-3) A/G Ratio (test 1.1 1.2-2.2 L code = 1759-0) Bilirubin, Total 0.4 mg/dL 0.0-1.2 (test code = 1975-2) Alkaline 124 IU/L 44-121 H Phosphatase (test Pl ease note code = 6768-6) reference int erval change
<b r/>Perf ormed by:
[facility] ([place])

AST (SGOT) (test 17 IU/L 0-40 code = 1920-8) ALT (SGPT) (test 23 IU/L 0-44 code = 1742-6) [facility] Description: Phosphate [Mass/volume] in Serum or Plasma 2021-01-30 02:57:00 Test Item Value Reference Range Interpretation Comments Phosphorus (test code = 2777-1) 4.5 mg/dL 2.8-4.1 H [facility] Description: Magnesium [Mass/volume] in Serum or Plasma 2021-01-30 02:57:00 Test Item Value Reference Range Interpretation Comments Magnesium (test code = 85429-7) 1.8 mg/dL 1.6-2.3 [facility] Description: Microscopic Caudtipfwna6806-31-08 02:57:00 Test Item Value Reference Range Interpretation Comments WBC (test code = 5821-4) None seen 0-5 RBC (test code = 97410-5) None seen 0-2 Epithelial Cells (non renal) (test None seen 0-10 code = 5787-7) Epithelial Cells (renal) (test code = 22677-7) Casts (test code = 43872-5) None seen None seen Cast Type (test code = 10458-9) Crystals (test code = 5783-6) Crystal Type (test code = 5782-8) Mucus Threads (test code = 8247-9) Bacteria (test code = 5769-5) None seen None seen/Few Yeast (test code = 5822-2) Trichomonas (test code = 5813-1) Comment (test code = 94592-6) [facility] Description: Urate [Mass/volume] in Serum or Btaouc1646-98-70 02:57:00 Test Item Value Reference Range Interpretation Comments Uric Acid (test 11.5 mg/dL 3.8-8.4 H code = 3084-1) Therapeutic t arget for gout patients: <6.0

P erformed by:
[facility] ()

[facility] Description: Comp. Metabolic Panel (14)2021-01-30 02:57:00 Test Item Value Reference Range Interpretation Comments Glucose (test code 256 mg/dL 65-99 H = 2345-7) BUN (test code = 57 mg/dL 6-24 H 3094-0) Creatinine (test 2.38 mg/dL 0.76-1.27 H code = 2160-0) eGFR If NonAfricn 31 >59 L Am (test code = mL/min/1.73 14436-8) eGFR If Africn Am 36 >59 L In accor dance with (test code = mL/min/1.73 recommendations from 55938-2) the NKF-ASN Tas k force, [facility] is in the process of updating its eG FR calculation to the 2020 CKD-EPI creatinine equa tion that estimates kidney function witho ut a race variable.
< br/>Per formed by:
[facility] ([place])

BUN/Creatinine 24 9-20 H Ratio (test code = 3097-3) Sodium (test code = 139 mmol/L 202-695 5094-2) Potassium (test 4.9 mmol/L 3.5-5.2 code = 2823-3) Chloride (test code 100 mmol/L 96-106 = 2075-0) Carbon Dioxide, 23 mmol/L 20-29 Total (test code = 2027-) Calcium (test code 9.0 mg/dL 8.7-10.2 = 39553-1) Protein, Total 6.5 g/dL 6.0-8.5 (test code = 2885-2) Albumin (test code 3.4 g/dL 4.0-5.0 L = 1751-7) Globulin, Total 3.1 g/dL 1.5-4.5 (test code = 47477-7) A/G Ratio (test 1.1 1.2-2.2 L code = 1759-0) Bilirubin, Total 0.4 mg/dL 0.0-1.2 (test code = 1974-2) Alkaline 124 IU/L 44-121 H Phosphatase (test Pl ease note code = 6768-6) reference int erval change
<b r/>Perf ormed by:
[facility] ([place])

AST (SGOT) (test 17 IU/L 0-40 code = 1920-8) ALT (SGPT) (test 23 IU/L 0-44 code = 1742-6) [facility] Description: Phosphate [Mass/volume] in Serum or Plasma 2021-01-30 02:57:00 Test Item Value Reference Range Interpretation Comments Phosphorus (test code = 2777-1) 4.5 mg/dL 2.8-4.1 H [facility] Description: Magnesium [Mass/volume] in Serum or Plasma 2021-01-30 02:57:00 Test Item Value Reference Range Interpretation Comments Magnesium (test code = 18089-6) 1.8 mg/dL 1.6-2.3 [facility] Description: Microscopic Gyedzhmhutr0388-64-45 02:57:00 Test Item Value Reference Range Interpretation Comments WBC (test code = 5821-4) None seen 0-5 RBC (test code = 42252-4) None seen 0-2 Epithelial Cells (non renal) (test None seen 0-10 code = 5787-7) Epithelial Cells (renal) (test code = 82298-7) Casts (test code = 42908-0) None seen None seen Cast Type (test code = 00727-4) Crystals (test code = 5783-6) Crystal Type (test code = 5782-8) Mucus Threads (test code = 8247-9) Bacteria (test code = 5769-5) None seen None seen/Few Yeast (test code = 5822-2) Trichomonas (test code = 5813-1) Comment (test code = 47174-1) [facility] Description: Urate [Mass/volume] in Serum or [id number] 02:57:00 Test Item Value Reference Range Interpretation Comments Uric Acid (test 11.5 mg/dL 3.8-8.4 H code = 3084-1) Therapeutic t arget for gout patients: <6.0

P erformed by:
[facility] ()

[facility] Description: Comp. Metabolic Panel (14)2021-01-30 02:57:00 Test Item Value Reference Range Interpretation Comments Glucose (test code 256 mg/dL 65-99 H = 2345-7) BUN (test code = 57 mg/dL 6-24 H 3094-0) Creatinine (test 2.38 mg/dL 0.76-1.27 H code = 2160-0) eGFR If NonAfricn 31 >59 L Am (test code = mL/min/1.73 04015-2) eGFR If Africn Am 36 >59 L In accor dance with (test code = mL/min/1.73 recommendations from 76536-7) the NKF-ASN Tas k force, [facility] is in the process of updating its eG FR calculation to the 2020 CKD-EPI creatinine equa tion that estimates kidney function witho ut a race variable.
< br/>Per formed by:
[facility] ([place])

BUN/Creatinine 24 9-20 H Ratio (test code = 3097-3) Sodium (test code = 139 mmol/L 332-528 3471-2) Potassium (test 4.9 mmol/L 3.5-5.2 code = 2823-3) Chloride (test code 100 mmol/L 96-106 = 2075-0) Carbon Dioxide, 23 mmol/L 20-29 Total (test code = 2027-) Calcium (test code 9.0 mg/dL 8.7-10.2 = 84826-6) Protein, Total 6.5 g/dL 6.0-8.5 (test code = 2885-2) Albumin (test code 3.4 g/dL 4.0-5.0 L = 1751-7) Globulin, Total 3.1 g/dL 1.5-4.5 (test code = 70516-7) A/G Ratio (test 1.1 1.2-2.2 L code = 1759-0) Bilirubin, Total 0.4 mg/dL 0.0-1.2 (test code = 1974-2) Alkaline 124 IU/L 44-121 H Phosphatase (test Pl ease note code = 6768-6) reference int erval change
<b r/>Perf ormed by:
[facility] ([place])

AST (SGOT) (test 17 IU/L 0-40 code = 1920-8) ALT (SGPT) (test 23 IU/L 0-44 code = 1742-6) [facility] Description: Phosphate [Mass/volume] in Serum or Plasma 2021-01-30 02:57:00 Test Item Value Reference Range Interpretation Comments Phosphorus (test code = 2777-1) 4.5 mg/dL 2.8-4.1 H [facility] Description: Magnesium [Mass/volume] in Serum or Plasma 2021-01-30 02:57:00 Test Item Value Reference Range Interpretation Comments Magnesium (test code = 57824-9) 1.8 mg/dL 1.6-2.3 [facility] Description: Microscopic Sxhlyeuiefr5717-40-84 02:57:00 Test Item Value Reference Range Interpretation Comments WBC (test code = 5821-4) None seen 0-5 RBC (test code = 21960-7) None seen 0-2 Epithelial Cells (non renal) (test None seen 0-10 code = 5787-7) Epithelial Cells (renal) (test code = 82683-5) Casts (test code = 03202-8) None seen None seen Cast Type (test code = 86023-0) Crystals (test code = 5783-6) Crystal Type (test code = 5782-8) Mucus Threads (test code = 8247-9) Bacteria (test code = 5769-5) None seen None seen/Few Yeast (test code = 5822-2) Trichomonas (test code = 5813-1) Comment (test code = 29100-9) [facility] Description: Urate [Mass/volume] in Serum or Sucowf7306-54-28 02:57:00 Test Item Value Reference Range Interpretation Comments Uric Acid (test 11.5 mg/dL 3.8-8.4 H code = 3084-1) Therapeutic t arget for gout patients: <6.0

P erformed by:
[facility] ([place])

[facility] Description: Comp. Metabolic Panel (14)2021-01-30 02:57:00 Test Item Value Reference Range Interpretation Comments Glucose (test code 256 mg/dL 65-99 H = 2345-7) BUN (test code = 57 mg/dL 6-24 H 3094-0) Creatinine (test 2.38 mg/dL 0.76-1.27 H code = 2160-0) eGFR If NonAfricn 31 >59 L Am (test code = mL/min/1.73 77338-2) eGFR If Africn Am 36 >59 L In accor dance with (test code = mL/min/1.73 recommendations from 71909-3) the NKF-ASN Tas k force, [facility] is in the process of updating its eG FR calculation to the 2020 CKD-EPI creatinine equa tion that estimates kidney function witho ut a race variable.
< br/>Per formed by:
[facility] ([place])

BUN/Creatinine 24 9-20 H Ratio (test code = 3097-3) Sodium (test code = 139 mmol/L 904-763 3216-2) Potassium (test 4.9 mmol/L 3.5-5.2 code = 2823-3) Chloride (test code 100 mmol/L 96-106 = 2075-0) Carbon Dioxide, 23 mmol/L 20-29 Total (test code = 2027-9) Calcium (test code 9.0 mg/dL 8.7-10.2 = 59268-1) Protein, Total 6.5 g/dL 6.0-8.5 (test code = 2885-2) Albumin (test code 3.4 g/dL 4.0-5.0 L = 1751-7) Globulin, Total 3.1 g/dL 1.5-4.5 (test code = 84567-8) A/G Ratio (test 1.1 1.2-2.2 L code = 1759-0) Bilirubin, Total 0.4 mg/dL 0.0-1.2 (test code = 1974-2) Alkaline 124 IU/L 44-121 H Phosphatase (test Pl ease note code = 6768-6) reference int erval change
<b r/>Perf ormed by:
[facility] ([place])

AST (SGOT) (test 17 IU/L 0-40 code = 1920-8) ALT (SGPT) (test 23 IU/L 0-44 code = 1742-6) [facility] Description: Phosphate [Mass/volume] in Serum or Plasma 2021-01-30 02:57:00 Test Item Value Reference Range Interpretation Comments Phosphorus (test code = 2777-1) 4.5 mg/dL 2.8-4.1 H [facility] Description: Magnesium [Mass/volume] in Serum or Plasma 2021-01-30 02:57:00 Test Item Value Reference Range Interpretation Comments Magnesium (test code = 37473-5) 1.8 mg/dL 1.6-2.3 [facility] Description: Microscopic Raiyazpljed1321-97-29 02:57:00 Test Item Value Reference Range Interpretation Comments WBC (test code = 5821-4) None seen 0-5 RBC (test code = 95408-9) None seen 0-2 Epithelial Cells (non renal) (test None seen 0-10 code = 5787-7) Epithelial Cells (renal) (test code = 60319-4) Casts (test code = 47206-2) None seen None seen Cast Type (test code = 84335-3) Crystals (test code = 5783-6) Crystal Type (test code = 5782-8) Mucus Threads (test code = 8247-9) Bacteria (test code = 5769-5) None seen None seen/Few Yeast (test code = 5822-2) Trichomonas (test code = 5813-1) Comment (test code = 58037-8) [facility] Description: Urate [Mass/volume] in Serum or Zknkra3071-41-82 02:57:00 Test Item Value Reference Range Interpretation Comments Uric Acid (test 11.5 mg/dL 3.8-8.4 H code = 3084-1) Therapeutic t arget for gout patients: <6.0

P erformed by:
[facility] ([place])

[facility] Description: Comp. Metabolic Panel (14)2021-01-30 02:57:00 Test Item Value Reference Range Interpretation Comments Glucose (test code 256 mg/dL 65-99 H = 2465-7) BUN (test code = 57 mg/dL 6-24 H 3094-0) Creatinine (test 2.38 mg/dL 0.76-1.27 H code = 2160-0) eGFR If NonAfricn 31 >59 L Am (test code = mL/min/1.73 86119-1) eGFR If Africn Am 36 >59 L In accor dance with (test code = mL/min/1.73 recommendations from 97191-4) the NKF-ASN Tas k force, [facility] is in the process of updating its eG FR calculation to the 2020 CKD-EPI creatinine equa tion that estimates kidney function witho ut a race variable.
< br/>Per formed by:
[facility] ([place])

BUN/Creatinine 24 9-20 H Ratio (test code = 3097-3) Sodium (test code = 139 mmol/L 782-176 6765-2) Potassium (test 4.9 mmol/L 3.5-5.2 code = 2823-3) Chloride (test code 100 mmol/L 96-106 = 2075-0) Carbon Dioxide, 23 mmol/L 20-29 Total (test code = 2027-) Calcium (test code 9.0 mg/dL 8.7-10.2 = 69364-4) Protein, Total 6.5 g/dL 6.0-8.5 (test code = 2885-2) Albumin (test code 3.4 g/dL 4.0-5.0 L = 1751-7) Globulin, Total 3.1 g/dL 1.5-4.5 (test code = 82659-0) A/G Ratio (test 1.1 1.2-2.2 L code = 1759-0) Bilirubin, Total 0.4 mg/dL 0.0-1.2 (test code = 1974-2) Alkaline 124 IU/L 44-121 H Phosphatase (test Pl ease note code = 6768-6) reference int erval change
<b r/>Perf ormed by:
[facility] ([place])

AST (SGOT) (test 17 IU/L 0-40 code = 1920-8) ALT (SGPT) (test 23 IU/L 0-44 code = 1742-6) [facility] Description: Phosphate [Mass/volume] in Serum or Plasma 2021-01-30 02:57:00 Test Item Value Reference Range Interpretation Comments Phosphorus (test code = 2777-1) 4.5 mg/dL 2.8-4.1 H [facility] Description: Magnesium [Mass/volume] in Serum or Plasma 2021-01-30 02:57:00 Test Item Value Reference Range Interpretation Comments Magnesium (test code = 75964-6) 1.8 mg/dL 1.6-2.3 [facility] Description: Microscopic Irrrclbfnby9735-57-33 02:57:00 Test Item Value Reference Range Interpretation Comments WBC (test code = 5821-4) None seen 0-5 RBC (test code = 90500-1) None seen 0-2 Epithelial Cells (non renal) (test None seen 0-10 code = 5787-7) Epithelial Cells (renal) (test code = 03157-6) Casts (test code = 89466-6) None seen None seen Cast Type (test code = 17761-0) Crystals (test code = 5783-6) Crystal Type (test code = 5782-8) Mucus Threads (test code = 8247-9) Bacteria (test code = 5769-5) None seen None seen/Few Yeast (test code = 5822-2) Trichomonas (test code = 5813-1) Comment (test code = 54962-2) [facility] Description: Urate [Mass/volume] in Serum or Buigui1830-83-16 02:57:00 Test Item Value Reference Range Interpretation Comments Uric Acid (test 11.5 mg/dL 3.8-8.4 H code = 3084-1) Therapeutic t arget for gout patients: <6.0

P erformed by:
[facility] ([place])

[facility] Description: Comp. Metabolic Panel (14)2021-01-30 02:57:00 Test Item Value Reference Range Interpretation Comments Glucose (test code 256 mg/dL 65-99 H = 9065-7) BUN (test code = 57 mg/dL 6-24 H 3094-0) Creatinine (test 2.38 mg/dL 0.76-1.27 H code = 2160-0) eGFR If NonAfricn 31 >59 L Am (test code = mL/min/1.73 00663-1) eGFR If Africn Am 36 >59 L In accor dance with (test code = mL/min/1.73 recommendations from 85851-9) the NKF-ASN Tas k force, [facility] is in the process of updating its eG FR calculation to the 2020 CKD-EPI creatinine equa tion that estimates kidney function witho ut a race variable.
< br/>Per formed by:
[facility] ([place])

BUN/Creatinine 24 9-20 H Ratio (test code = 3097-3) Sodium (test code = 139 mmol/L 742-454 6574-2) Potassium (test 4.9 mmol/L 3.5-5.2 code = 2823-3) Chloride (test code 100 mmol/L 96-106 = 2075-0) Carbon Dioxide, 23 mmol/L 20-29 Total (test code = 2027-9) Calcium (test code 9.0 mg/dL 8.7-10.2 = 74850-7) Protein, Total 6.5 g/dL 6.0-8.5 (test code = 2885-2) Albumin (test code 3.4 g/dL 4.0-5.0 L = 1751-7) Globulin, Total 3.1 g/dL 1.5-4.5 (test code = 70920-2) A/G Ratio (test 1.1 1.2-2.2 L code = 1759-0) Bilirubin, Total 0.4 mg/dL 0.0-1.2 (test code = 1975-2) Alkaline 124 IU/L 44-121 H Phosphatase (test Pl ease note code = 6768-6) reference int erval change
<b r/>Perf ormed by:
[facility] ([place])

AST (SGOT) (test 17 IU/L 0-40 code = 1920-8) ALT (SGPT) (test 23 IU/L 0-44 code = 1742-6) [facility] Description: Phosphate [Mass/volume] in Serum or Plasma 2021-01-30 02:57:00 Test Item Value Reference Range Interpretation Comments Phosphorus (test code = 2777-1) 4.5 mg/dL 2.8-4.1 H [facility] Description: Magnesium [Mass/volume] in Serum or Plasma 2021-01-30 02:57:00 Test Item Value Reference Range Interpretation Comments Magnesium (test code = 42881-0) 1.8 mg/dL 1.6-2.3 [facility] Description: Microscopic Zkqpsbvkguj5136-27-83 02:57:00 Test Item Value Reference Range Interpretation Comments WBC (test code = 5821-4) None seen 0-5 RBC (test code = 11845-1) None seen 0-2 Epithelial Cells (non renal) (test None seen 0-10 code = 5787-7) Epithelial Cells (renal) (test code = 45816-4) Casts (test code = 83402-9) None seen None seen Cast Type (test code = 11401-8) Crystals (test code = 5783-6) Crystal Type (test code = 5782-8) Mucus Threads (test code = 8247-9) Bacteria (test code = 5769-5) None seen None seen/Few Yeast (test code = 5822-2) Trichomonas (test code = 5813-1) Comment (test code = 70699-7) [facility] Description: Urate [Mass/volume] in Serum or Vdoror6613-12-47 02:57:00 Test Item Value Reference Range Interpretation Comments Uric Acid (test 11.5 mg/dL 3.8-8.4 H code = 3084-1) Therapeutic t arget for gout patients: <6.0

P erformed by:
[facility] ([place])

[facility] Description: Comp. Metabolic Panel (14)2021-01-30 02:57:00 Test Item Value Reference Range Interpretation Comments Glucose (test code 256 mg/dL 65-99 H = 4345-7) BUN (test code = 57 mg/dL 6-24 H 3094-0) Creatinine (test 2.38 mg/dL 0.76-1.27 H code = 2160-0) eGFR If NonAfricn 31 >59 L Am (test code = mL/min/1.73 15186-5) eGFR If Africn Am 36 >59 L In accor dance with (test code = mL/min/1.73 recommendations from 06290-4) the NKF-ASN Tas k force, [facility] is in the process of updating its eG FR calculation to the 2020 CKD-EPI creatinine equa tion that estimates kidney function witho ut a race variable.
< br/>Per formed by:
[facility] ([place])

BUN/Creatinine 24 9-20 H Ratio (test code = 3097-3) Sodium (test code = 139 mmol/L 778-290 9983-2) Potassium (test 4.9 mmol/L 3.5-5.2 code = 2823-3) Chloride (test code 100 mmol/L 96-106 = 2075-0) Carbon Dioxide, 23 mmol/L 20-29 Total (test code = 2027-9) Calcium (test code 9.0 mg/dL 8.7-10.2 = 99591-2) Protein, Total 6.5 g/dL 6.0-8.5 (test code = 2885-2) Albumin (test code 3.4 g/dL 4.0-5.0 L = 1751-7) Globulin, Total 3.1 g/dL 1.5-4.5 (test code = 94868-0) A/G Ratio (test 1.1 1.2-2.2 L code = 1759-0) Bilirubin, Total 0.4 mg/dL 0.0-1.2 (test code = 1975-2) Alkaline 124 IU/L 44-121 H Phosphatase (test Pl ease note code = 6768-6) reference int erval change
<b r/>Perf ormed by:
[facility] (HD)

AST (SGOT) (test 17 IU/L 0-40 code = 1920-8) ALT (SGPT) (test 23 IU/L 0-44 code = 1742-6) [facility] Description: Phosphate [Mass/volume] in Serum or Plasma 2021-01-30 02:57:00 Test Item Value Reference Range Interpretation Comments Phosphorus (test code = 2777-1) 4.5 mg/dL 2.8-4.1 H [facility] Description: Magnesium [Mass/volume] in Serum or Plasma 2021-01-30 02:57:00 Test Item Value Reference Range Interpretation Comments Magnesium (test code = 80113-3) 1.8 mg/dL 1.6-2.3 [facility] Description: Microscopic [id number] 02:57:00 Test Item Value Reference Range Interpretation Comments WBC (test code = 5821-4) None seen 0-5 RBC (test code = 95339-9) None seen 0-2 Epithelial Cells (non renal) (test None seen 0-10 code = 5787-7) Epithelial Cells (renal) (test code = 13350-9) Casts (test code = 82805-0) None seen None seen Cast Type (test code = 04489-9) Crystals (test code = 5783-6) Crystal Type (test code = 5782-8) Mucus Threads (test code = 8247-9) Bacteria (test code = 5769-5) None seen None seen/Few Yeast (test code = 5822-2) Trichomonas (test code = 5813-1) Comment (test code = 87361-8) [facility] Description: Urate [Mass/volume] in Serum or [id number] 02:57:00 Test Item Value Reference Range Interpretation Comments Uric Acid (test 11.5 mg/dL 3.8-8.4 H code = 3084-1) Therapeutic t arget for gout patients: <6.0

P erformed by:
[facility] ([place])

[facility] Description: Comp. Metabolic Panel (14)2021-01-30 02:57:00 Test Item Value Reference Range Interpretation Comments Glucose (test code 256 mg/dL 65-99 H = 8465-7) BUN (test code = 57 mg/dL 6-24 H 3094-0) Creatinine (test 2.38 mg/dL 0.76-1.27 H code = 2160-0) eGFR If NonAfricn 31 >59 L Am (test code = mL/min/1.73 78853-7) eGFR If Africn Am 36 >59 L In accor dance with (test code = mL/min/1.73 recommendations from 18185-4) the NKF-ASN Tas k force, [facility] is in the process of updating its eG FR calculation to the 2020 CKD-EPI creatinine equa tion that estimates kidney function witho ut a race variable.
< br/>Per formed by:
[facility] (HD)

BUN/Creatinine 24 9-20 H Ratio (test code = 3097-3) Sodium (test code = 139 mmol/L 666-000 5283-2) Potassium (test 4.9 mmol/L 3.5-5.2 code = 2823-3) Chloride (test code 100 mmol/L 96-106 = 2075-0) Carbon Dioxide, 23 mmol/L 20-29 Total (test code = 8-9) Calcium (test code 9.0 mg/dL 8.7-10.2 = 59983-0) Protein, Total 6.5 g/dL 6.0-8.5 (test code = 2885-2) Albumin (test code 3.4 g/dL 4.0-5.0 L = 1751-7) Globulin, Total 3.1 g/dL 1.5-4.5 (test code = 58418-4) A/G Ratio (test 1.1 1.2-2.2 L code = 1759-0) Bilirubin, Total 0.4 mg/dL 0.0-1.2 (test code = 1975-2) Alkaline 124 IU/L 44-121 H Phosphatase (test Pl ease note code = 6768-6) reference int erval change
<b r/>Perf ormed by:
[facility] ([place])

AST (SGOT) (test 17 IU/L 0-40 code = 1920-8) ALT (SGPT) (test 23 IU/L 0-44 code = 1742-6) [facility] Description: Phosphate [Mass/volume] in Serum or Plasma 2021-01-30 02:57:00 Test Item Value Reference Range Interpretation Comments Phosphorus (test code = 2777-1) 4.5 mg/dL 2.8-4.1 H [facility] Description: Magnesium [Mass/volume] in Serum or Plasma 2021-01-30 02:57:00 Test Item Value Reference Range Interpretation Comments Magnesium (test code = 29785-6) 1.8 mg/dL 1.6-2.3 [facility] Description: Microscopic Pihsnfqzwqb7686-42-75 02:57:00 Test Item Value Reference Range Interpretation Comments WBC (test code = 5821-4) None seen 0-5 RBC (test code = 40250-9) None seen 0-2 Epithelial Cells (non renal) (test None seen 0-10 code = 5787-7) Epithelial Cells (renal) (test code = 42938-2) Casts (test code = 93076-2) None seen None seen Cast Type (test code = 03294-9) Crystals (test code = 5783-6) Crystal Type (test code = 5782-8) Mucus Threads (test code = 8247-9) Bacteria (test code = 5769-5) None seen None seen/Few Yeast (test code = 5822-2) Trichomonas (test code = 5813-1) Comment (test code = 78642-3) [facility] Description: Urate [Mass/volume] in Serum or [id number] 02:57:00 Test Item Value Reference Range Interpretation Comments Uric Acid (test 11.5 mg/dL 3.8-8.4 H code = 3084-1) Therapeutic t arget for gout patients: <6.0

P erformed by:
[facility] ([place])

[facility] Description: Comp. Metabolic Panel (14)2021-01-30 02:57:00 Test Item Value Reference Range Interpretation Comments Glucose (test code 256 mg/dL 65-99 H = 4385-7) BUN (test code = 57 mg/dL 6-24 H 3094-0) Creatinine (test 2.38 mg/dL 0.76-1.27 H code = 2160-0) eGFR If NonAfricn 31 >59 L Am (test code = mL/min/1.73 24496-3) eGFR If Africn Am 36 >59 L In accor dance with (test code = mL/min/1.73 recommendations from 63694-5) the NKF-ASN Tas k force, [facility] is in the process of updating its eG FR calculation to the 2020 CKD-EPI creatinine equa tion that estimates kidney function witho ut a race variable.
< br/>Per formed by:
[facility] ([place])

BUN/Creatinine 24 9-20 H Ratio (test code = 3097-3) Sodium (test code = 139 mmol/L 612-686 9749-2) Potassium (test 4.9 mmol/L 3.5-5.2 code = 2823-3) Chloride (test code 100 mmol/L 96-106 = 2075-0) Carbon Dioxide, 23 mmol/L 20-29 Total (test code = 2027-9) Calcium (test code 9.0 mg/dL 8.7-10.2 = 39705-4) Protein, Total 6.5 g/dL 6.0-8.5 (test code = 2885-2) Albumin (test code 3.4 g/dL 4.0-5.0 L = 1751-7) Globulin, Total 3.1 g/dL 1.5-4.5 (test code = 40094-7) A/G Ratio (test 1.1 1.2-2.2 L code = 1759-0) Bilirubin, Total 0.4 mg/dL 0.0-1.2 (test code = 1975-2) Alkaline 124 IU/L 44-121 H Phosphatase (test Pl ease note code = 6768-6) reference int erval change
<b r/>Perf ormed by:
[facility] ([place])

AST (SGOT) (test 17 IU/L 0-40 code = 1920-8) ALT (SGPT) (test 23 IU/L 0-44 code = 1742-6) [facility] Description: Phosphate [Mass/volume] in Serum or Plasma 2021-01-30 02:57:00 Test Item Value Reference Range Interpretation Comments Phosphorus (test code = 2777-1) 4.5 mg/dL 2.8-4.1 H [facility] Description: Magnesium [Mass/volume] in Serum or Plasma 2021-01-30 02:57:00 Test Item Value Reference Range Interpretation Comments Magnesium (test code = 52850-4) 1.8 mg/dL 1.6-2.3 [facility] Description: Microscopic Bggwlhnyrzy5468-61-99 02:57:00 Test Item Value Reference Range Interpretation Comments WBC (test code = 5821-4) None seen 0-5 RBC (test code = 24203-7) None seen 0-2 Epithelial Cells (non renal) (test None seen 0-10 code = 5787-7) Epithelial Cells (renal) (test code = 33559-6) Casts (test code = 70797-1) None seen None seen Cast Type (test code = 59172-7) Crystals (test code = 5783-6) Crystal Type (test code = 5782-8) Mucus Threads (test code = 8247-9) Bacteria (test code = 5769-5) None seen None seen/Few Yeast (test code = 5822-2) Trichomonas (test code = 5813-1) Comment (test code = 86091-9) [facility] Description: Urate [Mass/volume] in Serum or [id number] 02:57:00 Test Item Value Reference Range Interpretation Comments Uric Acid (test 11.5 mg/dL 3.8-8.4 H code = 3084-1) Therapeutic t arget for gout patients: <6.0

P erformed by:
[facility] ()

[facility] Description: Urinalysis, [id number] 02:24:00 Test Item Value Reference Range Interpretation Comments Specific [place] (test 1.017 1.005-1.030 code = 2965-2) pH (test code = 5.5 5.0-7.5 5803-2) Urine-Color (test code Yellow Yellow = 5778-6) Appearance (test code Clear Clear = 5767-9) WBC Esterase (test Negative Negative code = 5799-2) Protein (test code = 4+ Negative/Trace A 61450-1) Glucose (test code = 1+ Negative A 2349-9) Ketones (test code = Negative Negative 2514-8) Occult Blood (test Trace Negative A code = 5794-3) Bilirubin (test code = Negative Negative 5770-3) Urobilinogen,Semi-Qn 0.2 mg/dL 0.2-1.0 (test code = 87737-3) Nitrite, Urine (test Negative Negative code = 5802-4) Microscopic See below: Microscopic was Examination (test code indic ated and was = 71204-5) performed.

P erformed by:
[employer] ()

[facility] Description: Urinalysis, Dllrirfo1851-47-07 02:24:00 Test Item Value Reference Range Interpretation Comments Specific [place] (test 1.017 1.005-1.030 code = 2965-2) pH (test code = 5.5 5.0-7.5 5803-2) Urine-Color (test code Yellow Yellow = 5778-6) Appearance (test code Clear Clear = 5767-9) WBC Esterase (test Negative Negative code = 5799-2) Protein (test code = 4+ Negative/Trace A 50145-9) Glucose (test code = 1+ Negative A 2349-9) Ketones (test code = Negative Negative 2514-8) Occult Blood (test Trace Negative A code = 5794-3) Bilirubin (test code = Negative Negative 5770-3) Urobilinogen,Semi-Qn 0.2 mg/dL 0.2-1.0 (test code = 39635-1) Nitrite, Urine (test Negative Negative code = 5802-4) Microscopic See below: Microscopic was Examination (test code indic ated and was = 76423-0) performed.

P erformed by:
[employer] ()

[facility] Description: Urinalysis, Ggtlobcq2055-33-68 02:24:00 Test Item Value Reference Range Interpretation Comments Specific [place] (test 1.017 1.005-1.030 code = 2965-2) pH (test code = 5.5 5.0-7.5 5803-2) Urine-Color (test code Yellow Yellow = 5778-6) Appearance (test code Clear Clear = 5767-9) WBC Esterase (test Negative Negative code = 5799-2) Protein (test code = 4+ Negative/Trace A 75182-7) Glucose (test code = 1+ Negative A 2349-9) Ketones (test code = Negative Negative 2514-8) Occult Blood (test Trace Negative A code = 5794-3) Bilirubin (test code = Negative Negative 5770-3) Urobilinogen,Semi-Qn 0.2 mg/dL 0.2-1.0 (test code = 43435-2) Nitrite, Urine (test Negative Negative code = 5802-4) Microscopic See below: Microscopic was Examination (test code indic ated and was = 09363-5) performed.

P erformed by:
[facility] [place] ()

[facility] Description: Urinalysis, Wwczmlkv5580-76-79 02:24:00 Test Item Value Reference Range Interpretation Comments Specific [place] (test 1.017 1.005-1.030 code = 2965-2) pH (test code = 5.5 5.0-7.5 5803-2) Urine-Color (test code Yellow Yellow = 5778-6) Appearance (test code Clear Clear = 5767-9) WBC Esterase (test Negative Negative code = 5799-2) Protein (test code = 4+ Negative/Trace A 52696-0) Glucose (test code = 1+ Negative A 2349-9) Ketones (test code = Negative Negative 2514-8) Occult Blood (test Trace Negative A code = 5794-3) Bilirubin (test code = Negative Negative 5770-3) Urobilinogen,Semi-Qn 0.2 mg/dL 0.2-1.0 (test code = 80753-6) Nitrite, Urine (test Negative Negative code = 5802-4) Microscopic See below: Microscopic was Examination (test code indic ated and was = 79243-7) performed.

P erformed by:
[facility] [place] ()

[facility] Description: Urinalysis, Crmfvkcv5931-69-07 02:24:00 Test Item Value Reference Range Interpretation Comments Specific [place] (test 1.017 1.005-1.030 code = 2965-2) pH (test code = 5.5 5.0-7.5 5803-2) Urine-Color (test code Yellow Yellow = 5778-6) Appearance (test code Clear Clear = 5767-9) WBC Esterase (test Negative Negative code = 5799-2) Protein (test code = 4+ Negative/Trace A 86886-7) Glucose (test code = 1+ Negative A 2349-9) Ketones (test code = Negative Negative 2514-8) Occult Blood (test Trace Negative A code = 5794-3) Bilirubin (test code = Negative Negative 5770-3) Urobilinogen,Semi-Qn 0.2 mg/dL 0.2-1.0 (test code = 62499-7) Nitrite, Urine (test Negative Negative code = 5802-4) Microscopic See below: Microscopic was Examination (test code indic ronaldo and was = 87869-9) performed.

P erformed by:
[facility] [place] ()

[facility] Description: Urinalysis, [id number] 02:24:00 Test Item Value Reference Range Interpretation Comments Specific [place] (test 1.017 1.005-1.030 code = 2965-2) pH (test code = 5.5 5.0-7.5 5803-2) Urine-Color (test code Yellow Yellow = 5778-6) Appearance (test code Clear Clear = 5767-9) WBC Esterase (test Negative Negative code = 5799-2) Protein (test code = 4+ Negative/Trace A 02980-6) Glucose (test code = 1+ Negative A 2349-9) Ketones (test code = Negative Negative 2514-8) Occult Blood (test Trace Negative A code = 5794-3) Bilirubin (test code = Negative Negative 5770-3) Urobilinogen,Semi-Qn 0.2 mg/dL 0.2-1.0 (test code = 80730-8) Nitrite, Urine (test Negative Negative code = 5802-4) Microscopic See below: Microscopic was Examination (test code indic ated and was = 24366-1) performed.

P erformed by:
[employer] [place] ()

[facility] Description: Urinalysis, [id number] 02:24:00 Test Item Value Reference Range Interpretation Comments Specific [place] (test 1.017 1.005-1.030 code = 2965-2) pH (test code = 5.5 5.0-7.5 5803-2) Urine-Color (test code Yellow Yellow = 5778-6) Appearance (test code Clear Clear = 5767-9) WBC Esterase (test Negative Negative code = 5799-2) Protein (test code = 4+ Negative/Trace A 39710-4) Glucose (test code = 1+ Negative A 2349-9) Ketones (test code = Negative Negative 2514-8) Occult Blood (test Trace Negative A code = 5794-3) Bilirubin (test code = Negative Negative 5770-3) Urobilinogen,Semi-Qn 0.2 mg/dL 0.2-1.0 (test code = 67650-9) Nitrite, Urine (test Negative Negative code = 5802-4) Microscopic See below: Microscopic was Examination (test code indic ated and was = 23304-6) performed.

P erformed by:
[facility] [place] ()

[facility] Description: Urinalysis, Awvukxme1723-29-69 02:24:00 Test Item Value Reference Range Interpretation Comments Specific [place] (test 1.017 1.005-1.030 code = 2965-2) pH (test code = 5.5 5.0-7.5 5803-2) Urine-Color (test code Yellow Yellow = 5778-6) Appearance (test code Clear Clear = 5767-9) WBC Esterase (test Negative Negative code = 5799-2) Protein (test code = 4+ Negative/Trace A 08744-5) Glucose (test code = 1+ Negative A 2349-9) Ketones (test code = Negative Negative 2514-8) Occult Blood (test Trace Negative A code = 5794-3) Bilirubin (test code = Negative Negative 5770-3) Urobilinogen,Semi-Qn 0.2 mg/dL 0.2-1.0 (test code = 15977-7) Nitrite, Urine (test Negative Negative code = 5802-4) Microscopic See below: Microscopic was Examination (test code indic ated and was = 27934-8) performed.

P erformed by:
[employer] [place] ()

[facility] Description: Urinalysis, Qwviycqe9384-43-33 02:24:00 Test Item Value Reference Range Interpretation Comments Specific [place] (test 1.017 1.005-1.030 code = 2965-2) pH (test code = 5.5 5.0-7.5 5803-2) Urine-Color (test code Yellow Yellow = 5778-6) Appearance (test code Clear Clear = 5767-9) WBC Esterase (test Negative Negative code = 5799-2) Protein (test code = 4+ Negative/Trace A 37706-7) Glucose (test code = 1+ Negative A 2349-9) Ketones (test code = Negative Negative 2514-8) Occult Blood (test Trace Negative A code = 5794-3) Bilirubin (test code = Negative Negative 5770-3) Urobilinogen,Semi-Qn 0.2 mg/dL 0.2-1.0 (test code = 39227-6) Nitrite, Urine (test Negative Negative code = 5802-4) Microscopic See below: Microscopic was Examination (test code indic ated and was = 91405-0) performed.

P erformed by:
[employer] [place] ()

[facility] Description: Urinalysis, [id number] 02:24:00 Test Item Value Reference Range Interpretation Comments Specific [place] (test 1.017 1.005-1.030 code = 2965-2) pH (test code = 5.5 5.0-7.5 5803-2) Urine-Color (test code Yellow Yellow = 5778-6) Appearance (test code Clear Clear = 5767-9) WBC Esterase (test Negative Negative code = 5799-2) Protein (test code = 4+ Negative/Trace A 75241-5) Glucose (test code = 1+ Negative A 2349-9) Ketones (test code = Negative Negative 2514-8) Occult Blood (test Trace Negative A code = 5794-3) Bilirubin (test code = Negative Negative 5770-3) Urobilinogen,Semi-Qn 0.2 mg/dL 0.2-1.0 (test code = 85242-8) Nitrite, Urine (test Negative Negative code = 5802-4) Microscopic See below: Microscopic was Examination (test code indic ated and was = 81693-9) performed.

P erformed by:
[employer] ()

[facility] Description: Urinalysis, [id number] 02:24:00 Test Item Value Reference Range Interpretation Comments Specific [place] (test 1.017 1.005-1.030 code = 2965-2) pH (test code = 5.5 5.0-7.5 5803-2) Urine-Color (test code Yellow Yellow = 5778-6) Appearance (test code Clear Clear = 5767-9) WBC Esterase (test Negative Negative code = 5799-2) Protein (test code = 4+ Negative/Trace A 84080-1) Glucose (test code = 1+ Negative A 2349-9) Ketones (test code = Negative Negative 2514-8) Occult Blood (test Trace Negative A code = 5794-3) Bilirubin (test code = Negative Negative 5770-3) Urobilinogen,Semi-Qn 0.2 mg/dL 0.2-1.0 (test code = 32608-6) Nitrite, Urine (test Negative Negative code = 5802-4) Microscopic See below: Microscopic was Examination (test code indic ated and was = 17257-6) performed.

P erformed by:
[employer] ()

[facility] Description: Urinalysis, [id number] 02:24:00 Test Item Value Reference Range Interpretation Comments Specific [place] (test 1.017 1.005-1.030 code = 2965-2) pH (test code = 5.5 5.0-7.5 5803-2) Urine-Color (test code Yellow Yellow = 5778-6) Appearance (test code Clear Clear = 5767-9) WBC Esterase (test Negative Negative code = 5799-2) Protein (test code = 4+ Negative/Trace A 74255-8) Glucose (test code = 1+ Negative A 2349-9) Ketones (test code = Negative Negative 2514-8) Occult Blood (test Trace Negative A code = 5794-3) Bilirubin (test code = Negative Negative 5770-3) Urobilinogen,Semi-Qn 0.2 mg/dL 0.2-1.0 (test code = 83135-5) Nitrite, Urine (test Negative Negative code = 5802-4) Microscopic See below: Microscopic was Examination (test code indic atecatrachito and was = 47777-9) performed.

P erformed by:
[facility] [place] ()

[facility] Description: Urinalysis, Nspivuim2535-33-30 02:24:00 Microscopic Examination[facility] Description: Urinalysis, 2021-01-30 02:24:00Microscopic Examination[facility] Description: Urinalysis, [id number] 02:24:00Microscopic Examination[facility] Description: Urinalysis, Sxkcijkr4354-44-75 02:24:00Microscopic Examination [facility] Description: Urinalysis, Arbfvhdw1844-63-07 02:24:00 Microscopic Examination[facility] Description: Urinalysis, Complete 2021-01-30 02:24:00Microscopic Examination[facility] Description: Urinalysis, Fjyjmmqu3405-39-33 02:24:00Microscopic Examination[facility] Description: Urinalysis, Eeaywibi5132-47-41 02:24:00Microscopic Examination [facility] Description: Urinalysis, Wiapmpiy1116-08-85 02:24:00 Microscopic Examination[facility] Description: Urinalysis, Complete 2021-01-30 02:24:00Microscopic Examination[facility] Description: Urinalysis, Mqcwufyt4967-23-88 02:24:00Microscopic Examination[facility] Description: Urinalysis, Khhuudho6773-34-73 02:24:00Microscopic Examination [facility] Description: Natriuretic peptide B [Mass/volume] in Serum or Dwcrwy2255-36-71 13:54:00 Test Item Value Reference Range Interpretation Comments B-Type Natriuretic Peptide (test 427.5 pg/mL 0.0-100.0 H code = 65040-7) [facility] Description: Natriuretic peptide B [Mass/volume] in Serum or Unkiut1024-05-58 13:54:00 Test Item Value Reference Range Interpretation Comments B-Type Natriuretic Peptide (test 427.5 pg/mL 0.0-100.0 H code = 72100-8) [facility] Description: Natriuretic peptide B [Mass/volume] in Serum or Rtiatl1283-43-23 13:54:00 Test Item Value Reference Range Interpretation Comments B-Type Natriuretic Peptide (test 427.5 pg/mL 0.0-100.0 H code = 88036-4) [facility] Description: Natriuretic peptide B [Mass/volume] in Serum or [id number] 13:54:00 Test Item Value Reference Range Interpretation Comments B-Type Natriuretic Peptide (test 427.5 pg/mL 0.0-100.0 H code = 69752-5) [facility] Description: Natriuretic peptide B [Mass/volume] in Serum or [id number] 13:54:00 Test Item Value Reference Range Interpretation Comments B-Type Natriuretic Peptide (test 427.5 pg/mL 0.0-100.0 H code = 82033-8) [facility] Description: Natriuretic peptide B [Mass/volume] in Serum or [id number] 13:54:00 Test Item Value Reference Range Interpretation Comments B-Type Natriuretic Peptide (test 427.5 pg/mL 0.0-100.0 H code = 96233-9) [facility] Description: Natriuretic peptide B [Mass/volume] in Serum or [id number] 13:54:00 Test Item Value Reference Range Interpretation Comments B-Type Natriuretic Peptide (test 427.5 pg/mL 0.0-100.0 H code = 92598-9) [facility] Description: Natriuretic peptide B [Mass/volume] in Serum or Iyqrzh7519-95-11 13:54:00 Test Item Value Reference Range Interpretation Comments B-Type Natriuretic Peptide (test 427.5 pg/mL 0.0-100.0 H code = 96682-1) [facility] Description: Natriuretic peptide B [Mass/volume] in Serum or [id number] 13:54:00 Test Item Value Reference Range Interpretation Comments B-Type Natriuretic Peptide (test 427.5 pg/mL 0.0-100.0 H code = 90594-8) [facility] Description: Natriuretic peptide B [Mass/volume] in Serum or [id number] 13:54:00 Test Item Value Reference Range Interpretation Comments B-Type Natriuretic Peptide (test 427.5 pg/mL 0.0-100.0 H code = 11462-0) [facility] Description: Natriuretic peptide B [Mass/volume] in Serum or [id number] 13:54:00 Test Item Value Reference Range Interpretation Comments B-Type Natriuretic Peptide (test 427.5 pg/mL 0.0-100.0 H code = 89162-2) [facility] Description: Natriuretic peptide B [Mass/volume] in Serum or [id number] 13:54:00 Test Item Value Reference Range Interpretation Comments B-Type Natriuretic Peptide (test 427.5 pg/mL 0.0-100.0 H code = 04773-2) [facility] Description: Natriuretic peptide B [Mass/volume] in Serum or [id number] 13:54:00 Test Item Value Reference Range Interpretation Comments B-Type Natriuretic Peptide (test 427.5 pg/mL 0.0-100.0 H code = 78119-5) [facility] Description: Natriuretic peptide B [Mass/volume] in Serum or [id number] 13:54:00 Test Item Value Reference Range Interpretation Comments B-Type Natriuretic Peptide (test 427.5 pg/mL 0.0-100.0 H code = 18530-7) [facility] Description: Natriuretic peptide B [Mass/volume] in Serum or [id number] 13:54:00 Test Item Value Reference Range Interpretation Comments B-Type Natriuretic Peptide (test 427.5 pg/mL 0.0-100.0 H code = 53482-7) [facility] Description: Natriuretic peptide B [Mass/volume] in Serum or Cpeynt8598-92-14 13:54:00 Test Item Value Reference Range Interpretation Comments B-Type Natriuretic Peptide (test 427.5 pg/mL 0.0-100.0 H code = 50723-0) [facility] Description: Natriuretic peptide B [Mass/volume] in Serum or [id number] 13:54:00 Test Item Value Reference Range Interpretation Comments B-Type Natriuretic Peptide (test 427.5 pg/mL 0.0-100.0 H code = 05309-5) [facility] Description: Natriuretic peptide B [Mass/volume] in Serum or [id number] 13:54:00 Test Item Value Reference Range Interpretation Comments B-Type Natriuretic Peptide (test 427.5 pg/mL 0.0-100.0 H code = 70433-2) [facility] Description: Phosphate [Mass/volume] in Serum or Plasma 2020-12-04 02:42:00 Test Item Value Reference Range Interpretation Comments Phosphorus (test code = 2777-1) 4.4 mg/dL 2.8-4.1 H [facility] Description: Phosphate [Mass/volume] in Serum or Plasma 2020-12-04 02:42:00 Test Item Value Reference Range Interpretation Comments Phosphorus (test code = 2777-1) 4.4 mg/dL 2.8-4.1 H [facility] Description: Phosphate [Mass/volume] in Serum or Plasma 2020-12-04 02:42:00 Test Item Value Reference Range Interpretation Comments Phosphorus (test code = 2777-1) 4.4 mg/dL 2.8-4.1 H [facility] Description: Phosphate [Mass/volume] in Serum or Plasma 2020-12-04 02:42:00 Test Item Value Reference Range Interpretation Comments Phosphorus (test code = 2777-1) 4.4 mg/dL 2.8-4.1 H [facility] Description: Phosphate [Mass/volume] in Serum or Plasma 2020-12-04 02:42:00 Test Item Value Reference Range Interpretation Comments Phosphorus (test code = 2777-1) 4.4 mg/dL 2.8-4.1 H [facility] Description: Phosphate [Mass/volume] in Serum or Plasma 2020-12-04 02:42:00 Test Item Value Reference Range Interpretation Comments Phosphorus (test code = 2777-1) 4.4 mg/dL 2.8-4.1 H [facility] Description: Phosphate [Mass/volume] in Serum or Plasma 2020-12-04 02:42:00 Test Item Value Reference Range Interpretation Comments Phosphorus (test code = 2777-1) 4.4 mg/dL 2.8-4.1 H [facility] Description: Phosphate [Mass/volume] in Serum or Plasma 2020-12-04 02:42:00 Test Item Value Reference Range Interpretation Comments Phosphorus (test code = 2777-1) 4.4 mg/dL 2.8-4.1 H [facility] Description: Phosphate [Mass/volume] in Serum or Plasma 2020-12-04 02:42:00 Test Item Value Reference Range Interpretation Comments Phosphorus (test code = 2777-1) 4.4 mg/dL 2.8-4.1 H [facility] Description: Phosphate [Mass/volume] in Serum or Plasma 2020-12-04 02:42:00 Test Item Value Reference Range Interpretation Comments Phosphorus (test code = 2777-1) 4.4 mg/dL 2.8-4.1 H [facility] Description: Phosphate [Mass/volume] in Serum or Plasma 2020-12-04 02:42:00 Test Item Value Reference Range Interpretation Comments Phosphorus (test code = 2777-1) 4.4 mg/dL 2.8-4.1 H [facility] Description: Phosphate [Mass/volume] in Serum or Plasma 2020-12-04 02:42:00 Test Item Value Reference Range Interpretation Comments Phosphorus (test code = 2777-1) 4.4 mg/dL 2.8-4.1 H [facility] Description: Phosphate [Mass/volume] in Serum or Plasma 2020-12-04 02:42:00 Test Item Value Reference Range Interpretation Comments Phosphorus (test code = 2777-1) 4.4 mg/dL 2.8-4.1 H [facility] Description: Phosphate [Mass/volume] in Serum or Plasma 2020-12-04 02:42:00 Test Item Value Reference Range Interpretation Comments Phosphorus (test code = 2777-1) 4.4 mg/dL 2.8-4.1 H [facility] Description: Phosphate [Mass/volume] in Serum or Plasma 2020-12-04 02:42:00 Test Item Value Reference Range Interpretation Comments Phosphorus (test code = 2777-1) 4.4 mg/dL 2.8-4.1 H [facility] Description: Phosphate [Mass/volume] in Serum or Plasma 2020-12-04 02:42:00 Test Item Value Reference Range Interpretation Comments Phosphorus (test code = 2777-1) 4.4 mg/dL 2.8-4.1 H [facility] Description: Phosphate [Mass/volume] in Serum or Plasma 2020-12-04 02:42:00 Test Item Value Reference Range Interpretation Comments Phosphorus (test code = 2777-1) 4.4 mg/dL 2.8-4.1 H [facility] Description: Phosphate [Mass/volume] in Serum or Plasma 2020-12-04 02:42:00 Test Item Value Reference Range Interpretation Comments Phosphorus (test code = 2777-1) 4.4 mg/dL 2.8-4.1 H [facility] Description: Comp. Metabolic Panel (14)2020-12-04 02:12:00 Test Item Value Reference Range Interpretation Comments Glucose (test code 315 mg/dL 65-99 H = 2345-7) BUN (test code = 52 mg/dL 6-24 H 3094-0) Creatinine (test 2.32 mg/dL 0.76-1.27 H code = 2160-0) eGFR If NonAfricn 32 >59 L Am (test code = mL/min/1.73 84375-9) eGFR If Africn Am 37 >59 L [facility] currently (test code = mL/min/1.73 [place] [address]-8) compliance with the current recommendations of the [employer]. [facility] [place] will update re porting as new guidelin es are published from the [facility] Task force.
<br/ >Perfor med by:
[facility] ([place])

BUN/Creatinine 22 9-20 H Ratio (test code = 3097-3) Sodium (test code = 142 mmol/L 654-690 8316-2) Potassium (test 4.3 mmol/L 3.5-5.2 code = 2823-3) Chloride (test code 100 mmol/L 96-106 = 5-0) Carbon Dioxide, 28 mmol/L 20-29 Total (test code = 2027-) Calcium (test code 9.2 mg/dL 8.7-10.2 = 63371-0) Protein, Total 6.5 g/dL 6.0-8.5 (test code = 2885-2) Albumin (test code 3.5 g/dL 4.0-5.0 L = 1751-7) Globulin, Total 3.0 g/dL 1.5-4.5 (test code = 59014-7) A/G Ratio (test 1.2 1.2-2.2 code = [...] 44 - 121

Pe rformed by:
[facility] [place] ([place])

AST (SGOT) (test 20 IU/L 0-40 code = 1920-8) ALT (SGPT) (test 22 IU/L 0-44 code = 1742-6) [facility] Description: Comp. Metabolic Panel (14)2020-12-04 02:12:00 Test Item Value Reference Range Interpretation Comments Glucose (test code 315 mg/dL 65-99 H = 2345-7) BUN (test code = 52 mg/dL 6-24 H 3094-0) Creatinine (test 2.32 mg/dL 0.76-1.27 H code = 2160-0) eGFR If NonAfricn 32 >59 L Am (test code = mL/min/1.73 09486-4) eGFR If Africn Am 37 >59 L [facility] currently (test code = mL/min/1.73 [place] 15400-2) compliance with the current recommendations of the [employer]. [facility] [place] will update re porting as new guidelin es are published from the [facility]-ASN Task force.
<br/ >Perfor med by:
[facility] ([place])

BUN/Creatinine 22 9-20 H Ratio (test code = 3097-3) Sodium (test code = 142 mmol/L 546-753 7069-2) Potassium (test 4.3 mmol/L 3.5-5.2 code = 2823-3) Chloride (test code 100 mmol/L 96-106 = 2075-0) Carbon Dioxide, 28 mmol/L 20-29 Total (test code = 2027-) Calcium (test code 9.2 mg/dL 8.7-10.2 = 03182-3) Protein, Total 6.5 g/dL 6.0-8.5 (test code = 2885-2) Albumin (test code 3.5 g/dL 4.0-5.0 L = 1751-7) Globulin, Total 3.0 g/dL 1.5-4.5 (test code = 17727-0) A/G Ratio (test 1.2 1.2-2.2 code = [...] (test 22 IU/L 0-44 code = 1742-6) [facility] Description: Comp. Metabolic Panel (14)2020-12-04 02:12:00 Test Item Value Reference Range Interpretation Comments Glucose (test code 315 mg/dL 65-99 H = 2345-7) BUN (test code = 52 mg/dL 6-24 H 3094-0) Creatinine (test 2.32 mg/dL 0.76-1.27 H code = 2160-0) eGFR If NonAfricn 32 >59 L Am (test code = mL/min/1.73 19625-9) eGFR If Africn Am 37 >59 L [facility] currently (test code = mL/min/1.73 [place] [address]64-8) compliance with the current recommendations of the [employer]. [facility] [place] will update re porting as new guidelin es are published from the [facility]ASN Task force.
<br/ >Perfor med by:
[facility] ([facility])

BUN/Creatinine 22 9-20 H Ratio (test code = 3097-3) Sodium (test code = 142 mmol/L 722-624 3719-2) Potassium (test 4.3 mmol/L 3.5-5.2 code = 2823-3) Chloride (test code 100 mmol/L 96-106 = 5-0) Carbon Dioxide, 28 mmol/L 20-29 Total (test code = 2027-11) Calcium (test code 9.2 mg/dL 8.7-10.2 = 20925-4) Protein, Total 6.5 g/dL 6.0-8.5 (test code = 2885-2) Albumin (test code 3.5 g/dL 4.0-5.0 L = 175-7) Globulin, Total 3.0 g/dL 1.5-4.5 (test code = 41192-6) A/G Ratio (test 1.2 1.2-2.2 code = [...] (test 22 IU/L 0-44 code = 1742-6) [facility] Description: Comp. Metabolic Panel (14)2020-12-04 02:12:00 Test Item Value Reference Range Interpretation Comments Glucose (test code 315 mg/dL 65-99 H = 2345-7) BUN (test code = 52 mg/dL 6-24 H 3094-0) Creatinine (test 2.32 mg/dL 0.76-1.27 H code = 2160-0) eGFR If NonAfricn 32 >59 L Am (test code = mL/min/1.73 98010-1) eGFR If Africn Am 37 >59 L [facility] currently (test code = mL/min/1.73 [place] 9[address]-5) compliance with the current recommendations of the [employer]. [facility] [place] will update re porting as new guidelin es are published from the [facility] Task force.
<br/ >Perfor med by:
[facility] ([facility])

BUN/Creatinine 22 9-20 H Ratio (test code = 3097-3) Sodium (test code = 142 mmol/L 099-874 4983-2) Potassium (test 4.3 mmol/L 3.5-5.2 code = 2823-3) Chloride (test code 100 mmol/L 96-106 = 2075-0) Carbon Dioxide, 28 mmol/L 20-29 Total (test code = 2027-) Calcium (test code 9.2 mg/dL 8.7-10.2 = 29291-4) Protein, Total 6.5 g/dL 6.0-8.5 (test code = 2885-2) Albumin (test code 3.5 g/dL 4.0-5.0 L = 1751-7) Globulin, Total 3.0 g/dL 1.5-4.5 (test code = 36756-7) A/G Ratio (test 1.2 1.2-2.2 code = [...] 44 - 121

Pe rformed by:
[facility] [place] ([place])

AST (SGOT) (test 20 IU/L 0-40 code = 1920-8) ALT (SGPT) (test 22 IU/L 0-44 code = 1742-6) [facility] Description: Comp. Metabolic Panel (14)2020-12-04 02:12:00 Test Item Value Reference Range Interpretation Comments Glucose (test code 315 mg/dL 65-99 H = 2345-7) BUN (test code = 52 mg/dL 6-24 H 3094-0) Creatinine (test 2.32 mg/dL 0.76-1.27 H code = 2160-0) eGFR If NonAfricn 32 >59 L Am (test code = mL/min/1.73 28990-7) eGFR If Africn Am 37 >59 L [facility] currently (test code = mL/min/1.73 [place] 0[address]-9) compliance with the current recommendations of the [employer]. [facility] [place] will update re porting as new guidelin es are published from the [facility]ASN Task force.
<br/ >Perfor med by:
[facility] [place] (HD)

BUN/Creatinine 22 9-20 H Ratio (test code = 3097-3) Sodium (test code = 142 mmol/L 990-667 7410-2) Potassium (test 4.3 mmol/L 3.5-5.2 code = 2823-3) Chloride (test code 100 mmol/L 96-106 = 2075-0) Carbon Dioxide, 28 mmol/L 20-29 Total (test code = 2027-) Calcium (test code 9.2 mg/dL 8.7-10.2 = 41698-4) Protein, Total 6.5 g/dL 6.0-8.5 (test code = 2885-2) Albumin (test code 3.5 g/dL 4.0-5.0 L = 1751-7) Globulin, Total 3.0 g/dL 1.5-4.5 (test code = 96815-5) A/G Ratio (test 1.2 1.2-2.2 code = [...] (test 22 IU/L 0-44 code = 1742-6) [facility] Description: Comp. Metabolic Panel (14)2020-12-04 02:12:00 Test Item Value Reference Range Interpretation Comments Glucose (test code 315 mg/dL 65-99 H = 2345-7) BUN (test code = 52 mg/dL 6-24 H 3094-0) Creatinine (test 2.32 mg/dL 0.76-1.27 H code = 2160-0) eGFR If NonAfricn 32 >59 L Am (test code = mL/min/1.73 28759-8) eGFR If Africn Am 37 >59 L [facility] currently (test code = mL/min/1.73 [place] [address]-0) compliance with the current recommendations of the [employer]. [facility] [place] will update re porting as new guidelin es are published from the [facility] Task force.
<br/ >Perfor med by:
[facility] ([facility])

BUN/Creatinine 22 9-20 H Ratio (test code = 3097-3) Sodium (test code = 142 mmol/L 050-695 5142-2) Potassium (test 4.3 mmol/L 3.5-5.2 code = 2823-3) Chloride (test code 100 mmol/L 96-106 = 2075-0) Carbon Dioxide, 28 mmol/L 20-29 Total (test code = 2027-) Calcium (test code 9.2 mg/dL 8.7-10.2 = 70096-0) Protein, Total 6.5 g/dL 6.0-8.5 (test code = 2885-2) Albumin (test code 3.5 g/dL 4.0-5.0 L = 1751-7) Globulin, Total 3.0 g/dL 1.5-4.5 (test code = 40108-9) A/G Ratio (test 1.2 1.2-2.2 code = [...] 44 - 121

Pe rformed by:
[facility] [place] ([place])

AST (SGOT) (test 20 IU/L 0-40 code = 1920-8) ALT (SGPT) (test 22 IU/L 0-44 code = 1742-6) [facility] Description: Comp. Metabolic Panel (14)2020-12-04 02:12:00 Test Item Value Reference Range Interpretation Comments Glucose (test code 315 mg/dL 65-99 H = 2345-7) BUN (test code = 52 mg/dL 6-24 H 3094-0) Creatinine (test 2.32 mg/dL 0.76-1.27 H code = 2160-0) eGFR If NonAfricn 32 >59 L Am (test code = mL/min/1.73 16622-9) eGFR If Africn Am 37 >59 L [facility] currently (test code = mL/min/1.73 [place] 55255-2) compliance with the current recommendations of the [employer]. [facility] [place] will update re porting as new guidelin es are published from the [facility] Task force.
<br/ >Perfor med by:
[facility] [place] (HD)

BUN/Creatinine 22 9-20 H Ratio (test code = 3097-3) Sodium (test code = 142 mmol/L 659-206 1770-2) Potassium (test 4.3 mmol/L 3.5-5.2 code = 2823-3) Chloride (test code 100 mmol/L 96-106 = 2075-0) Carbon Dioxide, 28 mmol/L 20-29 Total (test code = 2027-) Calcium (test code 9.2 mg/dL 8.7-10.2 = 57087-4) Protein, Total 6.5 g/dL 6.0-8.5 (test code = 2885-2) Albumin (test code 3.5 g/dL 4.0-5.0 L = 1751-7) Globulin, Total 3.0 g/dL 1.5-4.5 (test code = 31380-3) A/G Ratio (test 1.2 1.2-2.2 code = [...] 44 - 121

Pe rformed by:
[facility] [place] ([place])

AST (SGOT) (test 20 IU/L 0-40 code = 1920-8) ALT (SGPT) (test 22 IU/L 0-44 code = 1742-6) [facility] Description: Comp. Metabolic Panel (14)2020-12-04 02:12:00 Test Item Value Reference Range Interpretation Comments Glucose (test code 315 mg/dL 65-99 H = 2345-7) BUN (test code = 52 mg/dL 6-24 H 3094-0) Creatinine (test 2.32 mg/dL 0.76-1.27 H code = 2160-0) eGFR If NonAfricn 32 >59 L Am (test code = mL/min/1.73 00433-5) eGFR If Africn Am 37 >59 L [facility] currently (test code = mL/min/1.73 [place] [address]-6) compliance with the current recommendations of the [employer]. [facility] [place] will update re porting as new guidelin es are published from the [facility] Task force.
<br/ >Perfor med by:
[facility] ([facility])

BUN/Creatinine 22 9-20 H Ratio (test code = 3097-3) Sodium (test code = 142 mmol/L 338-140 5311-2) Potassium (test 4.3 mmol/L 3.5-5.2 code = 2823-3) Chloride (test code 100 mmol/L 96-106 = 2075-0) Carbon Dioxide, 28 mmol/L 20-29 Total (test code = 2027-) Calcium (test code 9.2 mg/dL 8.7-10.2 = 96621-7) Protein, Total 6.5 g/dL 6.0-8.5 (test code = 2885-2) Albumin (test code 3.5 g/dL 4.0-5.0 L = 1751-7) Globulin, Total 3.0 g/dL 1.5-4.5 (test code = 09868-1) A/G Ratio (test 1.2 1.2-2.2 code = [...] 44 - 121

Pe rformed by:
[facility] [place] ([place])

AST (SGOT) (test 20 IU/L 0-40 code = 1920-8) ALT (SGPT) (test 22 IU/L 0-44 code = 1742-6) [facility] Description: Comp. Metabolic Panel (14)2020-12-04 02:12:00 Test Item Value Reference Range Interpretation Comments Glucose (test code 315 mg/dL 65-99 H = 2345-7) BUN (test code = 52 mg/dL 6-24 H 3094-0) Creatinine (test 2.32 mg/dL 0.76-1.27 H code = 2160-0) eGFR If NonAfricn 32 >59 L Am (test code = mL/min/1.73 01008-5) eGFR If Africn Am 37 >59 L [facility] currently (test code = mL/min/1.73 [place] 56556-3) compliance with the current recommendations of the [employer]. [facility] [place] will update re porting as new guidelin es are published from the [facility] Task force.
<br/ >Perfor med by:
[facility] [place] ([facility])

BUN/Creatinine 22 9-20 H Ratio (test code = 3097-3) Sodium (test code = 142 mmol/L 369-839 1445-2) Potassium (test 4.3 mmol/L 3.5-5.2 code = 2823-3) Chloride (test code 100 mmol/L 96-106 = 2075-0) Carbon Dioxide, 28 mmol/L 20-29 Total (test code = 2027-) Calcium (test code 9.2 mg/dL 8.7-10.2 = 50489-8) Protein, Total 6.5 g/dL 6.0-8.5 (test code = 2885-2) Albumin (test code 3.5 g/dL 4.0-5.0 L = 1751-7) Globulin, Total 3.0 g/dL 1.5-4.5 (test code = 01346-4) A/G Ratio (test 1.2 1.2-2.2 code = [...] 44 - 121

Pe rformed by:
[facility] [place] ([place])

AST (SGOT) (test 20 IU/L 0-40 code = 1920-8) ALT (SGPT) (test 22 IU/L 0-44 code = 1742-6) [facility] Description: Comp. Metabolic Panel (14)2020-12-04 02:12:00 Test Item Value Reference Range Interpretation Comments Glucose (test code 315 mg/dL 65-99 H = 2345-7) BUN (test code = 52 mg/dL 6-24 H 3094-0) Creatinine (test 2.32 mg/dL 0.76-1.27 H code = 2160-0) eGFR If NonAfricn 32 >59 L Am (test code = mL/min/1.73 18275-6) eGFR If Africn Am 37 >59 L [facility] currently (test code = mL/min/1.73 [place] 73014-1) compliance with the current recommendations of the [employer]. [facility] [place] will update re porting as new guidelin es are published from the [facility] Task force.
<br/ >Perfor med by:
[facility] ([facility])

BUN/Creatinine 22 9-20 H Ratio (test code = 3097-3) Sodium (test code = 142 mmol/L 177-209 3591-2) Potassium (test 4.3 mmol/L 3.5-5.2 code = 2823-3) Chloride (test code 100 mmol/L 96-106 = 2075-0) Carbon Dioxide, 28 mmol/L 20-29 Total (test code = 2027-) Calcium (test code 9.2 mg/dL 8.7-10.2 = 45368-9) Protein, Total 6.5 g/dL 6.0-8.5 (test code = 2885-2) Albumin (test code 3.5 g/dL 4.0-5.0 L = 1751-7) Globulin, Total 3.0 g/dL 1.5-4.5 (test code = 42337-0) A/G Ratio (test 1.2 1.2-2.2 code = [...] 44 - 121

Pe rformed by:
[facility] [place] ([place])

AST (SGOT) (test 20 IU/L 0-40 code = 1920-8) ALT (SGPT) (test 22 IU/L 0-44 code = 1742-6) [facility] Description: Comp. Metabolic Panel (14)2020-12-04 02:12:00 Test Item Value Reference Range Interpretation Comments Glucose (test code 315 mg/dL 65-99 H = 2345-7) BUN (test code = 52 mg/dL 6-24 H 3094-0) Creatinine (test 2.32 mg/dL 0.76-1.27 H code = 2160-0) eGFR If NonAfricn 32 >59 L Am (test code = mL/min/1.73 34237-5) eGFR If Africn Am 37 >59 L [facility] currently (test code = mL/min/1.73 [place] 42268-9) compliance with the current recommendations of the [employer]. [facility] [place] will update re porting as new guidelin es are published from the [facility] Task force.
<br/ >Perfor med by:
[facility] [place] ([facility])

BUN/Creatinine 22 9-20 H Ratio (test code = 3097-3) Sodium (test code = 142 mmol/L 068-250 9944-2) Potassium (test 4.3 mmol/L 3.5-5.2 code = 2823-3) Chloride (test code 100 mmol/L 96-106 = 2075-0) Carbon Dioxide, 28 mmol/L 20-29 Total (test code = 2027-) Calcium (test code 9.2 mg/dL 8.7-10.2 = 64472-2) Protein, Total 6.5 g/dL 6.0-8.5 (test code = 2885-2) Albumin (test code 3.5 g/dL 4.0-5.0 L = 1751-7) Globulin, Total 3.0 g/dL 1.5-4.5 (test code = 82300-6) A/G Ratio (test 1.2 1.2-2.2 code = [...] 44 - 121

Pe rformed by:
[facility] [place] ([place])

AST (SGOT) (test 20 IU/L 0-40 code = 1920-8) ALT (SGPT) (test 22 IU/L 0-44 code = 1742-6) [facility] Description: Comp. Metabolic Panel (14)2020-12-04 02:12:00 Test Item Value Reference Range Interpretation Comments Glucose (test code 315 mg/dL 65-99 H = 2345-7) BUN (test code = 52 mg/dL 6-24 H 3094-0) Creatinine (test 2.32 mg/dL 0.76-1.27 H code = 2160-0) eGFR If NonAfricn 32 >59 L Am (test code = mL/min/1.73 24072-0) eGFR If Africn Am 37 >59 L [facility] currently (test code = mL/min/1.73 [place] 22326-0) compliance with the current recommendations of the [employer]. [facility] [place] will update re porting as new guidelin es are published from the [facility] Task force.
<br/ >Perfor med by:
[facility] ([facility])

BUN/Creatinine 22 9-20 H Ratio (test code = 3097-3) Sodium (test code = 142 mmol/L 669-805 9842-2) Potassium (test 4.3 mmol/L 3.5-5.2 code = 2823-3) Chloride (test code 100 mmol/L 96-106 = 2075-0) Carbon Dioxide, 28 mmol/L 20-29 Total (test code = 2027-) Calcium (test code 9.2 mg/dL 8.7-10.2 = 86418-3) Protein, Total 6.5 g/dL 6.0-8.5 (test code = 2885-2) Albumin (test code 3.5 g/dL 4.0-5.0 L = 1751-7) Globulin, Total 3.0 g/dL 1.5-4.5 (test code = 47596-1) A/G Ratio (test 1.2 1.2-2.2 code = [...] 44 - 121

Pe rformed by:
[facility] [place] ([place])

AST (SGOT) (test 20 IU/L 0-40 code = 1920-8) ALT (SGPT) (test 22 IU/L 0-44 code = 1742-6) [facility] Description: Comp. Metabolic Panel (14)2020-12-04 02:12:00 Test Item Value Reference Range Interpretation Comments Glucose (test code 315 mg/dL 65-99 H = 2345-7) BUN (test code = 52 mg/dL 6-24 H 3094-0) Creatinine (test 2.32 mg/dL 0.76-1.27 H code = 2160-0) eGFR If NonAfricn 32 >59 L Am (test code = mL/min/1.73 97233-9) eGFR If Africn Am 37 >59 L [facility] currently (test code = mL/min/1.73 [place] 24089-5) compliance with the current recommendations of the [employer]. [facility] [place] will update re porting as new guidelin es are published from the [facility] Task force.
<br/ >Perfor med by:
[facility] [place] ([facility])

BUN/Creatinine 22 9-20 H Ratio (test code = 3097-3) Sodium (test code = 142 mmol/L 479-885 6945-2) Potassium (test 4.3 mmol/L 3.5-5.2 code = 2823-3) Chloride (test code 100 mmol/L 96-106 = 2075-0) Carbon Dioxide, 28 mmol/L 20-29 Total (test code = 2027-) Calcium (test code 9.2 mg/dL 8.7-10.2 = 76435-8) Protein, Total 6.5 g/dL 6.0-8.5 (test code = 2885-2) Albumin (test code 3.5 g/dL 4.0-5.0 L = 1751-7) Globulin, Total 3.0 g/dL 1.5-4.5 (test code = 89292-8) A/G Ratio (test 1.2 1.2-2.2 code = [...] (test 22 IU/L 0-44 code = 1742-6) [facility] Description: Comp. Metabolic Panel (14)2020-12-04 02:12:00 Test Item Value Reference Range Interpretation Comments Glucose (test code 315 mg/dL 65-99 H = 2345-7) BUN (test code = 52 mg/dL 6-24 H 3094-0) Creatinine (test 2.32 mg/dL 0.76-1.27 H code = 2160-0) eGFR If NonAfricn 32 >59 L Am (test code = mL/min/1.73 04279-9) eGFR If Africn Am 37 >59 L [facility] currently (test code = mL/min/1.73 [place] [address]-3) compliance with the current recommendations of the [employer]. [facility] [place] will update re porting as new guidelin es are published from the [facility] Task force.
<br/ >Perfor med by:
[facility] [place] (HD)

BUN/Creatinine 22 9-20 H Ratio (test code = 3097-3) Sodium (test code = 142 mmol/L 584-116 4845-2) Potassium (test 4.3 mmol/L 3.5-5.2 code = 2823-3) Chloride (test code 100 mmol/L 96-106 = 2075-0) Carbon Dioxide, 28 mmol/L 20-29 Total (test code = 2027-) Calcium (test code 9.2 mg/dL 8.7-10.2 = 37344-7) Protein, Total 6.5 g/dL 6.0-8.5 (test code = 2885-2) Albumin (test code 3.5 g/dL 4.0-5.0 L = 1751-7) Globulin, Total 3.0 g/dL 1.5-4.5 (test code = 37876-4) A/G Ratio (test 1.2 1.2-2.2 code = [...] 44 - 121

Pe rformed by:
[facility] [place] ([place])

AST (SGOT) (test 20 IU/L 0-40 code = 1920-8) ALT (SGPT) (test 22 IU/L 0-44 code = 1742-6) [facility] Description: Comp. Metabolic Panel (14)2020-12-04 02:12:00 Test Item Value Reference Range Interpretation Comments Glucose (test code 315 mg/dL 65-99 H = 2345-7) BUN (test code = 52 mg/dL 6-24 H 3094-0) Creatinine (test 2.32 mg/dL 0.76-1.27 H code = 2160-0) eGFR If NonAfricn 32 >59 L Am (test code = mL/min/1.73 41464-1) eGFR If Africn Am 37 >59 L [facility] currently (test code = mL/min/1.73 [place] 19780-9) compliance with the current recommendations of the [employer]. [facility] [place] will update re porting as new guidelin es are published from the [facility] Task force.
<br/ >Perfor med by:
[facility] [place] ([facility])

BUN/Creatinine 22 9-20 H Ratio (test code = 3097-3) Sodium (test code = 142 mmol/L 897-120 4238-2) Potassium (test 4.3 mmol/L 3.5-5.2 code = 2823-3) Chloride (test code 100 mmol/L 96-106 = 2075-0) Carbon Dioxide, 28 mmol/L 20-29 Total (test code = 2027-) Calcium (test code 9.2 mg/dL 8.7-10.2 = 54525-9) Protein, Total 6.5 g/dL 6.0-8.5 (test code = 2885-2) Albumin (test code 3.5 g/dL 4.0-5.0 L = 1751-7) Globulin, Total 3.0 g/dL 1.5-4.5 (test code = 46808-6) A/G Ratio (test 1.2 1.2-2.2 code = [...] 44 - 121

Pe rformed by:
[facility] [place] ([place])

AST (SGOT) (test 20 IU/L 0-40 code = 1920-8) ALT (SGPT) (test 22 IU/L 0-44 code = 1742-6) [facility] Description: Comp. Metabolic Panel (14)2020-12-04 02:12:00 Test Item Value Reference Range Interpretation Comments Glucose (test code 315 mg/dL 65-99 H = 2345-7) BUN (test code = 52 mg/dL 6-24 H 3094-0) Creatinine (test 2.32 mg/dL 0.76-1.27 H code = 2160-0) eGFR If NonAfricn 32 >59 L Am (test code = mL/min/1.73 13024-4) eGFR If Africn Am 37 >59 L [facility] currently (test code = mL/min/1.73 [place] 00683-8) compliance with the current recommendations of the [employer]. [facility] [place] will update re porting as new guidelin es are published from the [facility] Task force.
<br/ >Perfor med by:
[facility] [place] ([facility])

BUN/Creatinine 22 9-20 H Ratio (test code = 3097-3) Sodium (test code = 142 mmol/L 243-854 6895-2) Potassium (test 4.3 mmol/L 3.5-5.2 code = 2823-3) Chloride (test code 100 mmol/L 96-106 = 2075-0) Carbon Dioxide, 28 mmol/L 20-29 Total (test code = 2027-) Calcium (test code 9.2 mg/dL 8.7-10.2 = 52636-0) Protein, Total 6.5 g/dL 6.0-8.5 (test code = 2885-2) Albumin (test code 3.5 g/dL 4.0-5.0 L = 1751-7) Globulin, Total 3.0 g/dL 1.5-4.5 (test code = 02917-5) A/G Ratio (test 1.2 1.2-2.2 code = [...] 44 - 121

Pe rformed by:
[facility] [place] ([place])

AST (SGOT) (test 20 IU/L 0-40 code = 1920-8) ALT (SGPT) (test 22 IU/L 0-44 code = 1742-6) [facility] Description: Comp. Metabolic Panel (14)2020-12-04 02:12:00 Test Item Value Reference Range Interpretation Comments Glucose (test code 315 mg/dL 65-99 H = 2345-7) BUN (test code = 52 mg/dL 6-24 H 3094-0) Creatinine (test 2.32 mg/dL 0.76-1.27 H code = 2160-0) eGFR If NonAfricn 32 >59 L Am (test code = mL/min/1.73 90566-4) eGFR If Africn Am 37 >59 L [facility] currently (test code = mL/min/1[place]73 [place] [address]-1) compliance with the current recommendations of the [employer]. [facility] [place] will update re porting as new guidelin es are published from the NKF-ASN Task force.
<br/ >Perfor med by:
[facility] [place] ([place])

BUN/Creatinine 22 9-20 H Ratio (test code = 3097-3) Sodium (test code = 142 mmol/L 618-949 7493-2) Potassium (test 4.3 mmol/L 3.5-5.2 code = 2823-3) Chloride (test code 100 mmol/L 96-106 = 2075-0) Carbon Dioxide, 28 mmol/L 20-29 Total (test code = 2027-9) Calcium (test code 9.2 mg/dL 8.7-10.2 = 49494-0) Protein, Total 6.5 g/dL 6.0-8.5 (test code = 2885-2) Albumin (test code 3.5 g/dL 4.0-5.0 L = 1751-7) Globulin, Total 3.0 g/dL 1.5-4.5 (test code = 95959-7) A/G Ratio (test 1.2 1.2-2.2 code = [...] (test 22 IU/L 0-44 code = 1742-6) [facility] Description: Comp. Metabolic Panel (14)2020-12-04 02:12:00 Test Item Value Reference Range Interpretation Comments Glucose (test code 315 mg/dL 65-99 H = 2345-7) BUN (test code = 52 mg/dL 6-24 H 3094-0) Creatinine (test 2.32 mg/dL 0.76-1.27 H code = 2160-0) eGFR If NonAfricn 32 >59 L Am (test code = mL/min/1.73 53085-4) eGFR If Africn Am 37 >59 L [facility] currently (test code = mL/min/1[place]73 [place] [address]-9) compliance with the current recommendations of the [employer]. [facility] [place] will update re porting as new guidelin es are published from the [employer]F-ASN Task force.
<br/ >Perfor med by:
[facility] [place] ([place])

BUN/Creatinine 22 9-20 H Ratio (test code = 3097-3) Sodium (test code = 142 mmol/L 796-715 4462-2) Potassium (test 4.3 mmol/L 3.5-5.2 code = 2823-3) Chloride (test code 100 mmol/L 96-106 = 2075-0) Carbon Dioxide, 28 mmol/L 20-29 Total (test code = 2027-) Calcium (test code 9.2 mg/dL 8.7-10.2 = 77186-6) Protein, Total 6.5 g/dL 6.0-8.5 (test code = 2885-2) Albumin (test code 3.5 g/dL 4.0-5.0 L = 1751-7) Globulin, Total 3.0 g/dL 1.5-4.5 (test code = 46998-3) A/G Ratio (test 1.2 1.2-2.2 code = [...] (test 22 IU/L 0-44 code = 1742-6) [facility] Description: Natriuretic peptide B [Mass/volume] in Serum or Tgfilx8312-78-50 14:32:00 Test Item Value Reference Range Interpretation Comments B-Type Natriuretic Peptide (test 682.3 pg/mL 0.0-100.0 H code = 44910-9) [facility] Description: Natriuretic peptide B [Mass/volume] in Serum or Fjxpwq8226-47-85 14:32:00 Test Item Value Reference Range Interpretation Comments B-Type Natriuretic Peptide (test 682.3 pg/mL 0.0-100.0 H code = 86937-9) [facility] Description: Natriuretic peptide B [Mass/volume] in Serum or Stpgcm3698-47-61 14:32:00 Test Item Value Reference Range Interpretation Comments B-Type Natriuretic Peptide (test 682.3 pg/mL 0.0-100.0 H code = 34023-0) [facility] Description: Natriuretic peptide B [Mass/volume] in Serum or Kkoscf9935-86-24 14:32:00 Test Item Value Reference Range Interpretation Comments B-Type Natriuretic Peptide (test 682.3 pg/mL 0.0-100.0 H code = 21719-2) [facility] Description: Natriuretic peptide B [Mass/volume] in Serum or Ozglsk2219-54-01 14:32:00 Test Item Value Reference Range Interpretation Comments B-Type Natriuretic Peptide (test 682.3 pg/mL 0.0-100.0 H code = 10007-8) [facility] Description: Natriuretic peptide B [Mass/volume] in Serum or Tjepfg5245-09-83 14:32:00 Test Item Value Reference Range Interpretation Comments B-Type Natriuretic Peptide (test 682.3 pg/mL 0.0-100.0 H code = 79767-8) [facility] Description: Natriuretic peptide B [Mass/volume] in Serum or Svgrde4956-73-23 14:32:00 Test Item Value Reference Range Interpretation Comments B-Type Natriuretic Peptide (test 682.3 pg/mL 0.0-100.0 H code = 78957-8) [facility] Description: Natriuretic peptide B [Mass/volume] in Serum or Ipiple2824-25-34 14:32:00 Test Item Value Reference Range Interpretation Comments B-Type Natriuretic Peptide (test 682.3 pg/mL 0.0-100.0 H code = 95880-1) [facility] Description: Natriuretic peptide B [Mass/volume] in Serum or Evnssu2296-18-88 14:32:00 Test Item Value Reference Range Interpretation Comments B-Type Natriuretic Peptide (test 682.3 pg/mL 0.0-100.0 H code = 50297-3) [facility] Description: Natriuretic peptide B [Mass/volume] in Serum or Nrcozx1381-86-60 14:32:00 Test Item Value Reference Range Interpretation Comments B-Type Natriuretic Peptide (test 682.3 pg/mL 0.0-100.0 H code = 64411-7) [facility] Description: Natriuretic peptide B [Mass/volume] in Serum or Mlggrd1162-41-28 14:32:00 Test Item Value Reference Range Interpretation Comments B-Type Natriuretic Peptide (test 682.3 pg/mL 0.0-100.0 H code = 04083-7) [facility] Description: Natriuretic peptide B [Mass/volume] in Serum or Skcihp6302-74-63 14:32:00 Test Item Value Reference Range Interpretation Comments B-Type Natriuretic Peptide (test 682.3 pg/mL 0.0-100.0 H code = 45056-2) [facility] Description: Natriuretic peptide B [Mass/volume] in Serum or Wqjwwa3250-23-66 14:32:00 Test Item Value Reference Range Interpretation Comments B-Type Natriuretic Peptide (test 682.3 pg/mL 0.0-100.0 H code = 57183-0) [facility] Description: Natriuretic peptide B [Mass/volume] in Serum or Yzrbik9563-48-93 14:32:00 Test Item Value Reference Range Interpretation Comments B-Type Natriuretic Peptide (test 682.3 pg/mL 0.0-100.0 H code = 01455-1) [facility] Description: Natriuretic peptide B [Mass/volume] in Serum or Xtbmcc1983-01-00 14:32:00 Test Item Value Reference Range Interpretation Comments B-Type Natriuretic Peptide (test 682.3 pg/mL 0.0-100.0 H code = 46189-5) [facility] Description: Natriuretic peptide B [Mass/volume] in Serum or Msuebk2450-01-58 14:32:00 Test Item Value Reference Range Interpretation Comments B-Type Natriuretic Peptide (test 682.3 pg/mL 0.0-100.0 H code = 92779-2) [facility] Description: Natriuretic peptide B [Mass/volume] in Serum or Pjudut7334-40-12 14:32:00 Test Item Value Reference Range Interpretation Comments B-Type Natriuretic Peptide (test 682.3 pg/mL 0.0-100.0 H code = 40237-2) [facility] Description: Natriuretic peptide B [Mass/volume] in Serum or Kivyne4870-99-10 14:32:00 Test Item Value Reference Range Interpretation Comments B-Type Natriuretic Peptide (test 682.3 pg/mL 0.0-100.0 H code = 94417-7) [facility] Description: Natriuretic peptide B [Mass/volume] in Serum or Nffmhg1175-79-29 14:32:00 Test Item Value Reference Range Interpretation Comments B-Type Natriuretic Peptide (test 682.3 pg/mL 0.0-100.0 H code = 33524-3) [facility] Description: Natriuretic peptide B [Mass/volume] in Serum or Cspina2168-66-38 14:32:00 Test Item Value Reference Range Interpretation Comments B-Type Natriuretic Peptide (test 682.3 pg/mL 0.0-100.0 H code = 37373-8) [facility] Description: Parathyrin.intact [Mass/volume] in Serum or Fwnggq3199-29-91 08:48:00 Test Item Value Reference Range Interpretation Comments PTH, Intact (test code = 2731-8) 147 pg/mL 15-65 H [facility] Description: Parathyrin.intact [Mass/volume] in Serum or Zwvftk9891-55-49 08:48:00 Test Item Value Reference Range Interpretation Comments PTH, Intact (test code = 2731-8) 147 pg/mL 15-65 H [facility] Description: Parathyrin.intact [Mass/volume] in Serum or Vrumzx1309-38-24 08:48:00 Test Item Value Reference Range Interpretation Comments PTH, Intact (test code = 2731-8) 147 pg/mL 15-65 H [facility] Description: Parathyrin.intact [Mass/volume] in Serum or Uptwfb5992-26-45 08:48:00 Test Item Value Reference Range Interpretation Comments PTH, Intact (test code = 2731-8) 147 pg/mL 15-65 H [facility] Description: Parathyrin.intact [Mass/volume] in Serum or Vfkpir5663-29-21 08:48:00 Test Item Value Reference Range Interpretation Comments PTH, Intact (test code = 2731-8) 147 pg/mL 15-65 H [facility] Description: Parathyrin.intact [Mass/volume] in Serum or Hkeesx2141-02-88 08:48:00 Test Item Value Reference Range Interpretation Comments PTH, Intact (test code = 2731-8) 147 pg/mL 15-65 H [facility] Description: Parathyrin.intact [Mass/volume] in Serum or Epxaee0949-47-49 08:48:00 Test Item Value Reference Range Interpretation Comments PTH, Intact (test code = 2731-8) 147 pg/mL 15-65 H [facility] Description: Parathyrin.intact [Mass/volume] in Serum or Rrgqtt8340-11-02 08:48:00 Test Item Value Reference Range Interpretation Comments PTH, Intact (test code = 2731-8) 147 pg/mL 15-65 H [facility] Description: Parathyrin.intact [Mass/volume] in Serum or Pnwgoi1791-49-46 08:48:00 Test Item Value Reference Range Interpretation Comments PTH, Intact (test code = 2731-8) 147 pg/mL 15-65 H [facility] Description: Parathyrin.intact [Mass/volume] in Serum or Juavgg8936-29-35 08:48:00 Test Item Value Reference Range Interpretation Comments PTH, Intact (test code = 2731-8) 147 pg/mL 15-65 H [facility] Description: Parathyrin.intact [Mass/volume] in Serum or Ljqbnj6958-36-02 08:48:00 Test Item Value Reference Range Interpretation Comments PTH, Intact (test code = 2731-8) 147 pg/mL 15-65 H [facility] Description: Parathyrin.intact [Mass/volume] in Serum or Lsqorw2182-55-19 08:48:00 Test Item Value Reference Range Interpretation Comments PTH, Intact (test code = 2731-8) 147 pg/mL 15-65 H [facility] Description: Parathyrin.intact [Mass/volume] in Serum or Vunbxx8090-61-83 08:48:00 Test Item Value Reference Range Interpretation Comments PTH, Intact (test code = 2731-8) 147 pg/mL 15-65 H [facility] Description: Parathyrin.intact [Mass/volume] in Serum or Xzrswb6194-97-07 08:48:00 Test Item Value Reference Range Interpretation Comments PTH, Intact (test code = 2731-8) 147 pg/mL 15-65 H [facility] Description: Parathyrin.intact [Mass/volume] in Serum or Qrhlcy2248-46-75 08:48:00 Test Item Value Reference Range Interpretation Comments PTH, Intact (test code = 2731-8) 147 pg/mL 15-65 H [facility] Description: Parathyrin.intact [Mass/volume] in Serum or Uxhbjw0146-16-23 08:48:00 Test Item Value Reference Range Interpretation Comments PTH, Intact (test code = 2731-8) 147 pg/mL 15-65 H [facility] Description: Parathyrin.intact [Mass/volume] in Serum or Zhazxy6490-19-95 08:48:00 Test Item Value Reference Range Interpretation Comments PTH, Intact (test code = 2731-8) 147 pg/mL 15-65 H [facility] Description: Parathyrin.intact [Mass/volume] in Serum or Ljsfnx8461-22-51 08:48:00 Test Item Value Reference Range Interpretation Comments PTH, Intact (test code = 2731-8) 147 pg/mL 15-65 H [facility] Description: Parathyrin.intact [Mass/volume] in Serum or Uuypkz2918-75-40 08:48:00 Test Item Value Reference Range Interpretation Comments PTH, Intact (test code = 2731-8) 147 pg/mL 15-65 H [facility] Description: Parathyrin.intact [Mass/volume] in Serum or Sxqveu2039-12-27 08:48:00 Test Item Value Reference Range Interpretation Comments PTH, Intact (test code = 2731-8) 147 pg/mL 15-65 H [facility] Description: Hemoglobin A1c/Hemoglobin.total in Blood 2020-10-30 05:01:00 Test Item Value Reference Range Interpretation Comments Hemoglobin A1c (test code 8.4 % 4.8-5.6 H = 4548-4) . Prediabetes: 5. 7 - 6.4 Diabetes : >6.4 Glycemic control for adults with diabetes: <7.0

P erformed by:
[facility] ([place])

[facility] Description: Hemoglobin A1c/Hemoglobin.total in Blood 2020-10-30 05:01:00 Test Item Value Reference Range Interpretation Comments Hemoglobin A1c (test code 8.4 % 4.8-5.6 H = 4548-4) . Prediabetes: 5. 7 - 6.4 Diabetes : >6.4 Glycemic control for adults with diabetes: <7.0

P erformed by:
[facility] ([place])

[facility] Description: Hemoglobin A1c/Hemoglobin.total in Blood 2020-10-30 05:01:00 Test Item Value Reference Range Interpretation Comments Hemoglobin A1c (test code 8.4 % 4.8-5.6 H = 4548-4) . Prediabetes: 5. 7 - 6.4 Diabetes : >6.4 Glycemic control for adults with diabetes: <7.0

P erformed by:
[facility] ([place])

[facility] Description: Hemoglobin A1c/Hemoglobin.total in Blood 2020-10-30 05:01:00 Test Item Value Reference Range Interpretation Comments Hemoglobin A1c (test code 8.4 % 4.8-5.6 H = 4548-4) . Prediabetes: 5. 7 - 6.4 Diabetes : >6.4 Glycemic control for adults with diabetes: <7.0

P erformed by:
[facility] ([place])

[facility] Description: Hemoglobin A1c/Hemoglobin.total in Blood 2020-10-30 05:01:00 Test Item Value Reference Range Interpretation Comments Hemoglobin A1c (test code 8.4 % 4.8-5.6 H = 4548-4) . Prediabetes: 5. 7 - 6.4 Diabetes : >6.4 Glycemic control for adults with diabetes: <7.0

P erformed by:
[facility] ([place])

[facility] Description: Hemoglobin A1c/Hemoglobin.total in Blood 2020-10-30 05:01:00 Test Item Value Reference Range Interpretation Comments Hemoglobin A1c (test code 8.4 % 4.8-5.6 H = 4548-4) . Prediabetes: 5. 7 - 6.4 Diabetes : >6.4 Glycemic control for adults with diabetes: <7.0

P erformed by:
[facility] ([place])

[facility] Description: Hemoglobin A1c/Hemoglobin.total in Blood 2020-10-30 05:01:00 Test Item Value Reference Range Interpretation Comments Hemoglobin A1c (test code 8.4 % 4.8-5.6 H = 4548-4) . Prediabetes: 5. 7 - 6.4 Diabetes : >6.4 Glycemic control for adults with diabetes: <7.0

P erformed by:
[facility] ([place])

[facility] Description: Hemoglobin A1c/Hemoglobin.total in Blood 2020-10-30 05:01:00 Test Item Value Reference Range Interpretation Comments Hemoglobin A1c (test code 8.4 % 4.8-5.6 H = 4548-4) . Prediabetes: 5. 7 - 6.4 Diabetes : >6.4 Glycemic control for adults with diabetes: <7.0

P erformed by:
[facility] [place] ([place])

[facility] Description: Hemoglobin A1c/Hemoglobin.total in Blood 2020-10-30 05:01:00 Test Item Value Reference Range Interpretation Comments Hemoglobin A1c (test code 8.4 % 4.8-5.6 H = 4548-4) . Prediabetes: 5. 7 - 6.4 Diabetes : >6.4 Glycemic control for adults with diabetes: <7.0

P erformed by:
[facility] ([place])

[facility] Description: Hemoglobin A1c/Hemoglobin.total in Blood 2020-10-30 05:01:00 Test Item Value Reference Range Interpretation Comments Hemoglobin A1c (test code 8.4 % 4.8-5.6 H = 4548-4) . Prediabetes: 5. 7 - 6.4 Diabetes : >6.4 Glycemic control for adults with diabetes: <7.0

P erformed by:
[facility] ([place])

[facility] Description: Hemoglobin A1c/Hemoglobin.total in Blood 2020-10-30 05:01:00 Test Item Value Reference Range Interpretation Comments Hemoglobin A1c (test code 8.4 % 4.8-5.6 H = 4548-4) . Prediabetes: 5. 7 - 6.4 Diabetes : >6.4 Glycemic control for adults with diabetes: <7.0

P erformed by:
[facility] ([place])

[facility] Description: Hemoglobin A1c/Hemoglobin.total in Blood 2020-10-30 05:01:00 Test Item Value Reference Range Interpretation Comments Hemoglobin A1c (test code 8.4 % 4.8-5.6 H = 4548-4) . Prediabetes: 5. 7 - 6.4 Diabetes : >6.4 Glycemic control for adults with diabetes: <7.0

P erformed by:
[facility] ([place])

[facility] Description: Hemoglobin A1c/Hemoglobin.total in Blood 2020-10-30 05:01:00 Test Item Value Reference Range Interpretation Comments Hemoglobin A1c (test code 8.4 % 4.8-5.6 H = 4548-4) . Prediabetes: 5. 7 - 6.4 Diabetes : >6.4 Glycemic control for adults with diabetes: <7.0

P erformed by:
[facility] ([place])

[facility] Description: Hemoglobin A1c/Hemoglobin.total in Blood 2020-10-30 05:01:00 Test Item Value Reference Range Interpretation Comments Hemoglobin A1c (test code 8.4 % 4.8-5.6 H = 4548-4) . Prediabetes: 5. 7 - 6.4 Diabetes : >6.4 Glycemic control for adults with diabetes: <7.0

P erformed by:
[facility] [place] ()

[facility] Description: Hemoglobin A1c/Hemoglobin.total in Blood 2020-10-30 05:01:00 Test Item Value Reference Range Interpretation Comments Hemoglobin A1c (test code 8.4 % 4.8-5.6 H = 4548-4) . Prediabetes: 5. 7 - 6.4 Diabetes : >6.4 Glycemic control for adults with diabetes: <7.0

P erformed by:
[facility] [place] ()

[facility] Description: Hemoglobin A1c/Hemoglobin.total in Blood 2020-10-30 05:01:00 Test Item Value Reference Range Interpretation Comments Hemoglobin A1c (test code 8.4 % 4.8-5.6 H = 4548-4) . Prediabetes: 5. 7 - 6.4 Diabetes : >6.4 Glycemic control for adults with diabetes: <7.0

P erformed by:
[facility] [place] ()

[facility] Description: Hemoglobin A1c/Hemoglobin.total in Blood 2020-10-30 05:01:00 Test Item Value Reference Range Interpretation Comments Hemoglobin A1c (test code 8.4 % 4.8-5.6 H = 4548-4) . Prediabetes: 5. 7 - 6.4 Diabetes : >6.4 Glycemic control for adults with diabetes: <7.0

P erformed by:
[facility] [place] ()

[facility] Description: Hemoglobin A1c/Hemoglobin.total in Blood 2020-10-30 05:01:00 Test Item Value Reference Range Interpretation Comments Hemoglobin A1c (test code 8.4 % 4.8-5.6 H = 4548-4) . Prediabetes: 5. 7 - 6.4 Diabetes : >6.4 Glycemic control for adults with diabetes: <7.0

P erformed by:
[facility] [place] ([place])

[facility] Description: Hemoglobin A1c/Hemoglobin.total in Blood 2020-10-30 05:01:00 Test Item Value Reference Range Interpretation Comments Hemoglobin A1c (test code 8.4 % 4.8-5.6 H = 4548-4) . Prediabetes: 5. 7 - 6.4 Diabetes : >6.4 Glycemic control for adults with diabetes: <7.0

P erformed by:
[facility] [place] ([place])

[facility] Description: Hemoglobin A1c/Hemoglobin.total in Blood 2020-10-30 05:01:00 Test Item Value Reference Range Interpretation Comments Hemoglobin A1c (test code 8.4 % 4.8-5.6 H = 4548-4) . Prediabetes: 5. 7 - 6.4 Diabetes : >6.4 Glycemic control for adults with diabetes: <7.0

P erformed by:
[facility] [place] ([place])

[facility] Description: Microscopic Arcplsxgsnd7345-84-94 04:44:00 Test Item Value Reference Range Interpretation Comments WBC (test code = 5821-4) None seen 0-5 RBC (test code = 96115-6) None seen 0-2 Epithelial Cells (non renal) (test None seen 0-10 code = 5787-7) Epithelial Cells (renal) (test code = 83340-4) Casts (test code = 10320-7) None seen None seen Cast Type (test code = 65508-9) Crystals (test code = 5783-6) Crystal Type (test code = 5782-8) Mucus Threads (test code = 8247-9) Bacteria (test code = 5769-5) None seen None seen/Few Yeast (test code = 5822-2) Trichomonas (test code = 5813-1) Comment (test code = 63773-4) [facility] Description: Microscopic Cnuyhttpfmf3261-23-53 04:44:00 Test Item Value Reference Range Interpretation Comments WBC (test code = 5821-4) None seen 0-5 RBC (test code = 95280-6) None seen 0-2 Epithelial Cells (non renal) (test None seen 0-10 code = 5787-7) Epithelial Cells (renal) (test code = 72734-0) Casts (test code = 71298-4) None seen None seen Cast Type (test code = 70071-3) Crystals (test code = 5783-6) Crystal Type (test code = 5782-8) Mucus Threads (test code = 8247-9) Bacteria (test code = 5769-5) None seen None seen/Few Yeast (test code = 5822-2) Trichomonas (test code = 5813-1) Comment (test code = 87215-6) [facility] Description: Microscopic Ligvdhiyejv2204-80-73 04:44:00 Test Item Value Reference Range Interpretation Comments WBC (test code = 5821-4) None seen 0-5 RBC (test code = 35016-2) None seen 0-2 Epithelial Cells (non renal) (test None seen 0-10 code = 5787-7) Epithelial Cells (renal) (test code = 75984-7) Casts (test code = 47310-5) None seen None seen Cast Type (test code = 51254-5) Crystals (test code = 5783-6) Crystal Type (test code = 5782-8) Mucus Threads (test code = 8247-9) Bacteria (test code = 5769-5) None seen None seen/Few Yeast (test code = 5822-2) Trichomonas (test code = 5813-1) Comment (test code = 70381-2) [facility] Description: Microscopic Hvjnmqdnwdg0177-27-63 04:44:00 Test Item Value Reference Range Interpretation Comments WBC (test code = 5821-4) None seen 0-5 RBC (test code = 43812-8) None seen 0-2 Epithelial Cells (non renal) (test None seen 0-10 code = 5787-7) Epithelial Cells (renal) (test code = 52420-4) Casts (test code = 28274-8) None seen None seen Cast Type (test code = 76337-4) Crystals (test code = 5783-6) Crystal Type (test code = 5782-8) Mucus Threads (test code = 8247-9) Bacteria (test code = 5769-5) None seen None seen/Few Yeast (test code = 5822-2) Trichomonas (test code = 5813-1) Comment (test code = 65765-0) [facility] Description: Microscopic Wyorwogltwe6669-85-70 04:44:00 Test Item Value Reference Range Interpretation Comments WBC (test code = 5821-4) None seen 0-5 RBC (test code = 07996-6) None seen 0-2 Epithelial Cells (non renal) (test None seen 0-10 code = 5787-7) Epithelial Cells (renal) (test code = 44940-6) Casts (test code = 31342-7) None seen None seen Cast Type (test code = 78856-5) Crystals (test code = 5783-6) Crystal Type (test code = 5782-8) Mucus Threads (test code = 8247-9) Bacteria (test code = 5769-5) None seen None seen/Few Yeast (test code = 5822-2) Trichomonas (test code = 5813-1) Comment (test code = 97502-8) [facility] Description: Microscopic Tlyjjejzdms1859-47-90 04:44:00 Test Item Value Reference Range Interpretation Comments WBC (test code = 5821-4) None seen 0-5 RBC (test code = 60568-9) None seen 0-2 Epithelial Cells (non renal) (test None seen 0-10 code = 5787-7) Epithelial Cells (renal) (test code = 56403-5) Casts (test code = 95142-4) None seen None seen Cast Type (test code = 78454-8) Crystals (test code = 5783-6) Crystal Type (test code = 5782-8) Mucus Threads (test code = 8247-9) Bacteria (test code = 5769-5) None seen None seen/Few Yeast (test code = 5822-2) Trichomonas (test code = 5813-1) Comment (test code = 03812-5) [facility] Description: Microscopic Hctxdphjpye5138-36-65 04:44:00 Test Item Value Reference Range Interpretation Comments WBC (test code = 5821-4) None seen 0-5 RBC (test code = 59426-8) None seen 0-2 Epithelial Cells (non renal) (test None seen 0-10 code = 5787-7) Epithelial Cells (renal) (test code = 09108-1) Casts (test code = 82974-8) None seen None seen Cast Type (test code = 21125-7) Crystals (test code = 5783-6) Crystal Type (test code = 5782-8) Mucus Threads (test code = 8247-9) Bacteria (test code = 5769-5) None seen None seen/Few Yeast (test code = 5822-2) Trichomonas (test code = 5813-1) Comment (test code = 74609-5) [facility] Description: Microscopic Evbnkoqmihk9708-60-89 04:44:00 Test Item Value Reference Range Interpretation Comments WBC (test code = 5821-4) None seen 0-5 RBC (test code = 03383-6) None seen 0-2 Epithelial Cells (non renal) (test None seen 0-10 code = 5787-7) Epithelial Cells (renal) (test code = 42145-4) Casts (test code = 60552-7) None seen None seen Cast Type (test code = 50969-6) Crystals (test code = 5783-6) Crystal Type (test code = 5782-8) Mucus Threads (test code = 8247-9) Bacteria (test code = 5769-5) None seen None seen/Few Yeast (test code = 5822-2) Trichomonas (test code = 5813-1) Comment (test code = 92835-0) [facility] Microscopic Fpvvtngkitn1078-70-10 04:44:00 Test Item Value Reference Range Interpretation Comments WBC (test code = 5821-4) None seen 0-5 RBC (test code = 45586-2) None seen 0-2 Epithelial Cells (non renal) (test None seen 0-10 code = 5787-7) Epithelial Cells (renal) (test code = 41597-6) Casts (test code = 69695-7) None seen None seen Cast Type (test code = 00044-8) Crystals (test code = 5783-6) Crystal Type (test code = 5782-8) Mucus Threads (test code = 8247-9) Bacteria (test code = 5769-5) None seen None seen/Few Yeast (test code = 5822-2) Trichomonas (test code = 5813-1) Comment (test code = 77384-3) [facility] Description: Microscopic Iwdmdqwyzfi7090-83-97 04:44:00 Test Item Value Reference Range Interpretation Comments WBC (test code = 5821-4) None seen 0-5 RBC (test code = 77830-8) None seen 0-2 Epithelial Cells (non renal) (test None seen 0-10 code = 5787-7) Epithelial Cells (renal) (test code = 05975-7) Casts (test code = 38320-7) None seen None seen Cast Type (test code = 62248-7) Crystals (test code = 5783-6) Crystal Type (test code = 5782-8) Mucus Threads (test code = 8247-9) Bacteria (test code = 5769-5) None seen None seen/Few Yeast (test code = 5822-2) Trichomonas (test code = 5813-1) Comment (test code = 44815-4) [facility] Description: Microscopic Cpsfyrealsd4566-39-52 04:44:00 Test Item Value Reference Range Interpretation Comments WBC (test code = 5821-4) None seen 0-5 RBC (test code = 44365-4) None seen 0-2 Epithelial Cells (non renal) (test None seen 0-10 code = 5787-7) Epithelial Cells (renal) (test code = 77442-8) Casts (test code = 77003-3) None seen None seen Cast Type (test code = 10678-2) Crystals (test code = 5783-6) Crystal Type (test code = 5782-8) Mucus Threads (test code = 8247-9) Bacteria (test code = 5769-5) None seen None seen/Few Yeast (test code = 5822-2) Trichomonas (test code = 5813-1) Comment (test code = 48542-8) [facility] Description: Microscopic Ergautfghsk1043-77-41 04:44:00 Test Item Value Reference Range Interpretation Comments WBC (test code = 5821-4) None seen 0-5 RBC (test code = 08839-5) None seen 0-2 Epithelial Cells (non renal) (test None seen 0-10 code = 5787-7) Epithelial Cells (renal) (test code = 38607-5) Casts (test code = 63660-1) None seen None seen Cast Type (test code = 29416-2) Crystals (test code = 5783-6) Crystal Type (test code = 5782-8) Mucus Threads (test code = 8247-9) Bacteria (test code = 5769-5) None seen None seen/Few Yeast (test code = 5822-2) Trichomonas (test code = 5813-1) Comment (test code = 38233-3) [facility] Description: Microscopic Yyvpicqfzcy8816-66-99 04:44:00 Test Item Value Reference Range Interpretation Comments WBC (test code = 5821-4) None seen 0-5 RBC (test code = 34855-3) None seen 0-2 Epithelial Cells (non renal) (test None seen 0-10 code = 5787-7) Epithelial Cells (renal) (test code = 40547-5) Casts (test code = 06909-4) None seen None seen Cast Type (test code = 17243-4) Crystals (test code = 5783-6) Crystal Type (test code = 5782-8) Mucus Threads (test code = 8247-9) Bacteria (test code = 5769-5) None seen None seen/Few Yeast (test code = 5822-2) Trichomonas (test code = 5813-1) Comment (test code = 01909-8) [facility] Description: Microscopic [id number] 04:44:00 Test Item Value Reference Range Interpretation Comments WBC (test code = 5821-4) None seen 0-5 RBC (test code = 65042-7) None seen 0-2 Epithelial Cells (non renal) (test None seen 0-10 code = 5787-7) Epithelial Cells (renal) (test code = 67577-0) Casts (test code = 71767-5) None seen None seen Cast Type (test code = 80270-1) Crystals (test code = 5783-6) Crystal Type (test code = 5782-8) Mucus Threads (test code = 8247-9) Bacteria (test code = 5769-5) None seen None seen/Few Yeast (test code = 5822-2) Trichomonas (test code = 5813-1) Comment (test code = 81455-9) [facility] Description: Microscopic Laqktwurlan7592-25-16 04:44:00 Test Item Value Reference Range Interpretation Comments WBC (test code = 5821-4) None seen 0-5 RBC (test code = 08595-1) None seen 0-2 Epithelial Cells (non renal) (test None seen 0-10 code = 5787-7) Epithelial Cells (renal) (test code = 69796-1) Casts (test code = 68407-1) None seen None seen Cast Type (test code = 56616-5) Crystals (test code = 5783-6) Crystal Type (test code = 5782-8) Mucus Threads (test code = 8247-9) Bacteria (test code = 5769-5) None seen None seen/Few Yeast (test code = 5822-2) Trichomonas (test code = 5813-1) Comment (test code = 26633-8) [facility] Description: Microscopic Eupidxorxfk6954-26-51 04:44:00 Test Item Value Reference Range Interpretation Comments WBC (test code = 5821-4) None seen 0-5 RBC (test code = 31841-6) None seen 0-2 Epithelial Cells (non renal) (test None seen 0-10 code = 5787-7) Epithelial Cells (renal) (test code = 11783-4) Casts (test code = 04704-4) None seen None seen Cast Type (test code = 57731-1) Crystals (test code = 5783-6) Crystal Type (test code = 5782-8) Mucus Threads (test code = 8247-9) Bacteria (test code = 5769-5) None seen None seen/Few Yeast (test code = 5822-2) Trichomonas (test code = 5813-1) Comment (test code = 22209-8) [facility] Description: Microscopic Xxyumrmzdoz7352-84-66 04:44:00 Test Item Value Reference Range Interpretation Comments WBC (test code = 5821-4) None seen 0-5 RBC (test code = 06980-5) None seen 0-2 Epithelial Cells (non renal) (test None seen 0-10 code = 5787-7) Epithelial Cells (renal) (test code = 87300-4) Casts (test code = 24903-9) None seen None seen Cast Type (test code = 37980-5) Crystals (test code = 5783-6) Crystal Type (test code = 5782-8) Mucus Threads (test code = 8247-9) Bacteria (test code = 5769-5) None seen None seen/Few Yeast (test code = 5822-2) Trichomonas (test code = 5813-1) Comment (test code = 14237-8) [facility] Description: Microscopic Nthugoutcdf5995-28-33 04:44:00 Test Item Value Reference Range Interpretation Comments WBC (test code = 5821-4) None seen 0-5 RBC (test code = 86179-5) None seen 0-2 Epithelial Cells (non renal) (test None seen 0-10 code = 5787-7) Epithelial Cells (renal) (test code = 99104-3) Casts (test code = 24479-5) None seen None seen Cast Type (test code = 87550-9) Crystals (test code = 5783-6) Crystal Type (test code = 5782-8) Mucus Threads (test code = 8247-9) Bacteria (test code = 5769-5) None seen None seen/Few Yeast (test code = 5822-2) Trichomonas (test code = 5813-1) Comment (test code = 94661-2) [facility] Description: Microscopic Qloukxyjbfa6005-26-81 04:44:00 Test Item Value Reference Range Interpretation Comments WBC (test code = 5821-4) None seen 0-5 RBC (test code = 83493-0) None seen 0-2 Epithelial Cells (non renal) (test None seen 0-10 code = 5787-7) Epithelial Cells (renal) (test code = 83111-2) Casts (test code = 36985-5) None seen None seen Cast Type (test code = 56881-2) Crystals (test code = 5783-6) Crystal Type (test code = 5782-8) Mucus Threads (test code = 8247-9) Bacteria (test code = 5769-5) None seen None seen/Few Yeast (test code = 5822-2) Trichomonas (test code = 5813-1) Comment (test code = 81945-8) [facility] Description: Microscopic Zwhlaunnpdr8240-16-67 04:44:00 Test Item Value Reference Range Interpretation Comments WBC (test code = 5821-4) None seen 0-5 RBC (test code = 72557-4) None seen 0-2 Epithelial Cells (non renal) (test None seen 0-10 code = 5787-7) Epithelial Cells (renal) (test code = 99822-5) Casts (test code = 53344-5) None seen None seen Cast Type (test code = 22665-2) Crystals (test code = 5783-6) Crystal Type (test code = 5782-8) Mucus Threads (test code = 8247-9) Bacteria (test code = 5769-5) None seen None seen/Few Yeast (test code = 5822-2) Trichomonas (test code = 5813-1) Comment (test code = 10844-1) [facility] Description: Urinalysis, Vtfxnyrl1976-15-29 04:43:00 Test Item Value Reference Range Interpretation Comments Specific [place] (test 1.012 1.005-1.030 code = 2965-2) pH (test code = 5.5 5.0-7.5 5803-2) Urine-Color (test code Yellow Yellow = 5778-6) Appearance (test code Clear Clear = 5767-9) WBC Esterase (test Negative Negative code = 5799-2) Protein (test code = 4+ Negative/Trace A 80651-0) Glucose (test code = Trace Negative A 2349-9) Ketones (test code = Negative Negative 2514-8) Occult Blood (test Trace Negative A code = 5794-3) Bilirubin (test code = Negative Negative 5770-3) Urobilinogen,Semi-Qn 0.2 mg/dL 0.2-1.0 (test code = 14485-6) Nitrite, Urine (test Negative Negative code = 5802-4) Microscopic See below: Microscopic was Examination (test code indic ated and was = 11607-6) performed.

P erformed by:
[facility] [place] ()

[facility] Description: Urinalysis, [id number] 04:43:00 Test Item Value Reference Range Interpretation Comments Specific [place] (test 1.012 1.005-1.030 code = 2965-2) pH (test code = 5.5 5.0-7.5 5803-2) Urine-Color (test code Yellow Yellow = 5778-6) Appearance (test code Clear Clear = 5767-9) WBC Esterase (test Negative Negative code = 5799-2) Protein (test code = 4+ Negative/Trace A 61385-6) Glucose (test code = Trace Negative A 2349-9) Ketones (test code = Negative Negative 2514-8) Occult Blood (test Trace Negative A code = 5794-3) Bilirubin (test code = Negative Negative 5770-3) Urobilinogen,Semi-Qn 0.2 mg/dL 0.2-1.0 (test code = 43521-0) Nitrite, Urine (test Negative Negative code = 5802-4) Microscopic See below: Microscopic was Examination (test code indic ated and was = 87978-7) performed.

P erformed by:
[facility] ()

[facility] Description: Urinalysis, [id number] 04:43:00 Test Item Value Reference Range Interpretation Comments Specific [place] (test 1.012 1.005-1.030 code = 2965-2) pH (test code = 5.5 5.0-7.5 5803-2) Urine-Color (test code Yellow Yellow = 5778-6) Appearance (test code Clear Clear = 5767-9) WBC Esterase (test Negative Negative code = 5799-2) Protein (test code = 4+ Negative/Trace A 69745-6) Glucose (test code = Trace Negative A 2349-9) Ketones (test code = Negative Negative 2514-8) Occult Blood (test Trace Negative A code = 5794-3) Bilirubin (test code = Negative Negative 5770-3) Urobilinogen,Semi-Qn 0.2 mg/dL 0.2-1.0 (test code = 33091-0) Nitrite, Urine (test Negative Negative code = 5802-4) Microscopic See below: Microscopic was Examination (test code indic ated and was = 31747-3) performed.

P erformed by:
[facility] [place] ()

[facility] Description: Urinalysis, Ldkrmvmi5381-80-49 04:43:00 Test Item Value Reference Range Interpretation Comments Specific [place] (test 1.012 1.005-1.030 code = 2965-2) pH (test code = 5.5 5.0-7.5 5803-2) Urine-Color (test code Yellow Yellow = 5778-6) Appearance (test code Clear Clear = 5767-9) WBC Esterase (test Negative Negative code = 5799-2) Protein (test code = 4+ Negative/Trace A 65808-8) Glucose (test code = Trace Negative A 2349-9) Ketones (test code = Negative Negative 2514-8) Occult Blood (test Trace Negative A code = 5794-3) Bilirubin (test code = Negative Negative 5770-3) Urobilinogen,Semi-Qn 0.2 mg/dL 0.2-1.0 (test code = 17556-8) Nitrite, Urine (test Negative Negative code = 5802-4) Microscopic See below: Microscopic was Examination (test code indic ated and was = 39427-6) performed.

P erformed by:
[facility] [place] ()

[facility] Description: Urinalysis, Vniwhhzo7423-52-32 04:43:00 Test Item Value Reference Range Interpretation Comments Specific [place] (test 1.012 1.005-1.030 code = 2965-2) pH (test code = 5.5 5.0-7.5 5803-2) Urine-Color (test code Yellow Yellow = 5778-6) Appearance (test code Clear Clear = 5767-9) WBC Esterase (test Negative Negative code = 5799-2) Protein (test code = 4+ Negative/Trace A 36280-9) Glucose (test code = Trace Negative A 2349-9) Ketones (test code = Negative Negative 2514-8) Occult Blood (test Trace Negative A code = 5794-3) Bilirubin (test code = Negative Negative 5770-3) Urobilinogen,Semi-Qn 0.2 mg/dL 0.2-1.0 (test code = 71886-8) Nitrite, Urine (test Negative Negative code = 5802-4) Microscopic See below: Microscopic was Examination (test code indic ated and was = 39153-6) performed.

P erformed by:
[facility] [place] ()

[facility] Description: Urinalysis, [id number] 04:43:00 Test Item Value Reference Range Interpretation Comments Specific [place] (test 1.012 1.005-1.030 code = 2965-2) pH (test code = 5.5 5.0-7.5 5803-2) Urine-Color (test code Yellow Yellow = 5778-6) Appearance (test code Clear Clear = 5767-9) WBC Esterase (test Negative Negative code = 5799-2) Protein (test code = 4+ Negative/Trace A 06920-6) Glucose (test code = Trace Negative A 2349-9) Ketones (test code = Negative Negative 2514-8) Occult Blood (test Trace Negative A code = 5794-3) Bilirubin (test code = Negative Negative 5770-3) Urobilinogen,Semi-Qn 0.2 mg/dL 0.2-1.0 (test code = 61777-4) Nitrite, Urine (test Negative Negative code = 5802-4) Microscopic See below: Microscopic was Examination (test code indic ated and was = 46693-1) performed.

P erformed by:
[facility] [place] ()

[facility] Description: Urinalysis, [id number] 04:43:00 Test Item Value Reference Range Interpretation Comments Specific [place] (test 1.012 1.005-1.030 code = 2965-2) pH (test code = 5.5 5.0-7.5 5803-2) Urine-Color (test code Yellow Yellow = 5778-6) Appearance (test code Clear Clear = 5767-9) WBC Esterase (test Negative Negative code = 5799-2) Protein (test code = 4+ Negative/Trace A 34937-2) Glucose (test code = Trace Negative A 2349-9) Ketones (test code = Negative Negative 2514-8) Occult Blood (test Trace Negative A code = 5794-3) Bilirubin (test code = Negative Negative 5770-3) Urobilinogen,Semi-Qn 0.2 mg/dL 0.2-1.0 (test code = 50972-4) Nitrite, Urine (test Negative Negative code = 5802-4) Microscopic See below: Microscopic was Examination (test code indic ated and was = 05651-6) performed.

P erformed by:
[employer] ()

[facility] Description: Urinalysis, [id number] 04:43:00 Test Item Value Reference Range Interpretation Comments Specific [place] (test 1.012 1.005-1.030 code = 2965-2) pH (test code = 5.5 5.0-7.5 5803-2) Urine-Color (test code Yellow Yellow = 5778-6) Appearance (test code Clear Clear = 5767-9) WBC Esterase (test Negative Negative code = 5799-2) Protein (test code = 4+ Negative/Trace A 07200-4) Glucose (test code = Trace Negative A 2349-9) Ketones (test code = Negative Negative 2514-8) Occult Blood (test Trace Negative A code = 5794-3) Bilirubin (test code = Negative Negative 5770-3) Urobilinogen,Semi-Qn 0.2 mg/dL 0.2-1.0 (test code = 42678-3) Nitrite, Urine (test Negative Negative code = 5802-4) Microscopic See below: Microscopic was Examination (test code indic ated and was = 85602-2) performed.

P erformed by:
[employer] ()

[facility] Description: Urinalysis, [id number] 04:43:00 Test Item Value Reference Range Interpretation Comments Specific [place] (test 1.012 1.005-1.030 code = 2965-2) pH (test code = 5.5 5.0-7.5 5803-2) Urine-Color (test code Yellow Yellow = 5778-6) Appearance (test code Clear Clear = 5767-9) WBC Esterase (test Negative Negative code = 5799-2) Protein (test code = 4+ Negative/Trace A 28426-7) Glucose (test code = Trace Negative A 2349-9) Ketones (test code = Negative Negative 2514-8) Occult Blood (test Trace Negative A code = 5794-3) Bilirubin (test code = Negative Negative 5770-3) Urobilinogen,Semi-Qn 0.2 mg/dL 0.2-1.0 (test code = 30430-5) Nitrite, Urine (test Negative Negative code = 5802-4) Microscopic See below: Microscopic was Examination (test code indic ated and was = 24938-3) performed.

P erformed by:
[facility] ()

[facility]: [facility]inalysis, [id number] 04:43:00 Test Item Value Reference Range Interpretation Comments Specific [place] (test 1.012 1.005-1.030 code = 2965-2) pH (test code = 5.5 5.0-7.5 5803-2) Urine-Color (test code Yellow Yellow = 5778-6) Appearance (test code Clear Clear = 5767-9) WBC Esterase (test Negative Negative code = 5799-2) Protein (test code = 4+ Negative/Trace A 25027-2) Glucose (test code = Trace Negative A 2349-9) Ketones (test code = Negative Negative 2514-8) Occult Blood (test Trace Negative A code = 5794-3) Bilirubin (test code = Negative Negative 5770-3) Urobilinogen,Semi-Qn 0.2 mg/dL 0.2-1.0 (test code = 95770-0) Nitrite, Urine (test Negative Negative code = 5802-4) Microscopic See below: Microscopic was Examination (test code indic ated and was = 30379-6) performed.

P erformed by:
[facility] ()

[facility] Description: Urinalysis, Zehtxyjn1234-20-22 04:43:00 Test Item Value Reference Range Interpretation Comments Specific [place] (test 1.012 1.005-1.030 code = 2965-2) pH (test code = 5.5 5.0-7.5 5803-2) Urine-Color (test code Yellow Yellow = 5778-6) Appearance (test code Clear Clear = 5767-9) WBC Esterase (test Negative Negative code = 5799-2) Protein (test code = 4+ Negative/Trace A 50885-9) Glucose (test code = Trace Negative A 2349-9) Ketones (test code = Negative Negative 2514-8) Occult Blood (test Trace Negative A code = 5794-3) Bilirubin (test code = Negative Negative 5770-3) Urobilinogen,Semi-Qn 0.2 mg/dL 0.2-1.0 (test code = 76883-0) Nitrite, Urine (test Negative Negative code = 5802-4) Microscopic See below: Microscopic was Examination (test code indic ated and was = 85860-8) performed.

P erformed by:
[facility] ()

[facility] Description: Urinalysis, [id number] 04:43:00 Test Item Value Reference Range Interpretation Comments Specific [place] (test 1.012 1.005-1.030 code = 2965-2) pH (test code = 5.5 5.0-7.5 5803-2) Urine-Color (test code Yellow Yellow = 5778-6) Appearance (test code Clear Clear = 5767-9) WBC Esterase (test Negative Negative code = 5799-2) Protein (test code = 4+ Negative/Trace A 72634-5) Glucose (test code = Trace Negative A 2349-9) Ketones (test code = Negative Negative 2514-8) Occult Blood (test Trace Negative A code = 5794-3) Bilirubin (test code = Negative Negative 5770-3) Urobilinogen,Semi-Qn 0.2 mg/dL 0.2-1.0 (test code = 47476-1) Nitrite, Urine (test Negative Negative code = 5802-4) Microscopic See below: Microscopic was Examination (test code indic ated and was = 48101-1) performed.

P erformed by:
[facility] ()

[facility] Description: Urinalysis, [id number] 04:43:00 Test Item Value Reference Range Interpretation Comments Specific [place] (test 1.012 1.005-1.030 code = 2965-2) pH (test code = 5.5 5.0-7.5 5803-2) Urine-Color (test code Yellow Yellow = 5778-6) Appearance (test code Clear Clear = 5767-9) WBC Esterase (test Negative Negative code = 5799-2) Protein (test code = 4+ Negative/Trace A 64908-8) Glucose (test code = Trace Negative A 2349-9) Ketones (test code = Negative Negative 2514-8) Occult Blood (test Trace Negative A code = 5794-3) Bilirubin (test code = Negative Negative 5770-3) Urobilinogen,Semi-Qn 0.2 mg/dL 0.2-1.0 (test code = 64716-6) Nitrite, Urine (test Negative Negative code = 5802-4) Microscopic See below: Microscopic was Examination (test code indic ated and was = 24745-1) performed.

P erformed by:
[facility] ()

[facility] Description: Urinalysis, [id number] 04:43:00 Test Item Value Reference Range Interpretation Comments Specific [place] (test 1.012 1.005-1.030 code = 2965-2) pH (test code = 5.5 5.0-7.5 5803-2) Urine-Color (test code Yellow Yellow = 5778-6) Appearance (test code Clear Clear = 5767-9) WBC Esterase (test Negative Negative code = 5799-2) Protein (test code = 4+ Negative/Trace A 69132-0) Glucose (test code = Trace Negative A 2349-9) Ketones (test code = Negative Negative 2514-8) Occult Blood (test Trace Negative A code = 5794-3) Bilirubin (test code = Negative Negative 5770-3) Urobilinogen,Semi-Qn 0.2 mg/dL 0.2-1.0 (test code = 51653-8) Nitrite, Urine (test Negative Negative code = 5802-4) Microscopic See below: Microscopic was Examination (test code indic ated and was = 48044-5) performed.

P erformed by:
[employer] [place] ()

[facility] Description: Urinalysis, Wtwrrntj2503-77-29 04:43:00 Test Item Value Reference Range Interpretation Comments Specific [place] (test 1.012 1.005-1.030 code = 2965-2) pH (test code = 5.5 5.0-7.5 5803-2) Urine-Color (test code Yellow Yellow = 5778-6) Appearance (test code Clear Clear = 5767-9) WBC Esterase (test Negative Negative code = 5799-2) Protein (test code = 4+ Negative/Trace A 01930-5) Glucose (test code = Trace Negative A 2349-9) Ketones (test code = Negative Negative 2514-8) Occult Blood (test Trace Negative A code = 5794-3) Bilirubin (test code = Negative Negative 5770-3) Urobilinogen,Semi-Qn 0.2 mg/dL 0.2-1.0 (test code = 31114-8) Nitrite, Urine (test Negative Negative code = 5802-4) Microscopic See below: Microscopic was Examination (test code indic ated and was = 93356-0) performed.

P erformed by:
[employer] [place] ()

[facility] Description: Urinalysis, Ccnhonyt4683-25-11 04:43:00 Test Item Value Reference Range Interpretation Comments Specific [place] (test 1.012 1.005-1.030 code = 2965-2) pH (test code = 5.5 5.0-7.5 5803-2) Urine-Color (test code Yellow Yellow = 5778-6) Appearance (test code Clear Clear = 5767-9) WBC Esterase (test Negative Negative code = 5799-2) Protein (test code = 4+ Negative/Trace A 50706-0) Glucose (test code = Trace Negative A 2349-9) Ketones (test code = Negative Negative 2514-8) Occult Blood (test Trace Negative A code = 5794-3) Bilirubin (test code = Negative Negative 5770-3) Urobilinogen,Semi-Qn 0.2 mg/dL 0.2-1.0 (test code = 87970-3) Nitrite, Urine (test Negative Negative code = 5802-4) Microscopic See below: Microscopic was Examination (test code indic ated and was = 54106-0) performed.

P erformed by:
[employer] ()

[facility] Description: Urinalysis, Spuhlsug3452-49-14 04:43:00 Test Item Value Reference Range Interpretation Comments Specific [place] (test 1.012 1.005-1.030 code = 2965-2) pH (test code = 5.5 5.0-7.5 5803-2) Urine-Color (test code Yellow Yellow = 5778-6) Appearance (test code Clear Clear = 5767-9) WBC Esterase (test Negative Negative code = 5799-2) Protein (test code = 4+ Negative/Trace A 04914-2) Glucose (test code = Trace Negative A 2349-9) Ketones (test code = Negative Negative 2514-8) Occult Blood (test Trace Negative A code = 5794-3) Bilirubin (test code = Negative Negative 5770-3) Urobilinogen,Semi-Qn 0.2 mg/dL 0.2-1.0 (test code = 93046-3) Nitrite, Urine (test Negative Negative code = 5802-4) Microscopic See below: Microscopic was Examination (test code indic ated and was = 69817-8) performed.

P erformed by:
[employer] ()

[facility] Description: Urinalysis, [id number] 04:43:00 Test Item Value Reference Range Interpretation Comments Specific [place] (test 1.012 1.005-1.030 code = 2965-2) pH (test code = 5.5 5.0-7.5 5803-2) Urine-Color (test code Yellow Yellow = 5778-6) Appearance (test code Clear Clear = 5767-9) WBC Esterase (test Negative Negative code = 5799-2) Protein (test code = 4+ Negative/Trace A 52500-1) Glucose (test code = Trace Negative A 2349-9) Ketones (test code = Negative Negative 2514-8) Occult Blood (test Trace Negative A code = 5794-3) Bilirubin (test code = Negative Negative 5770-3) Urobilinogen,Semi-Qn 0.2 mg/dL 0.2-1.0 (test code = 75608-2) Nitrite, Urine (test Negative Negative code = 5802-4) Microscopic See below: Microscopic was Examination (test code indic ated and was = 64853-8) performed.

P erformed by:
[facility] [place] ()

[facility]: Urinalysis, [id number] 04:43:00 Test Item Value Reference Range Interpretation Comments Specific [place] (test 1.012 1.005-1.030 code = 2965-2) pH (test code = 5.5 5.0-7.5 5803-2) Urine-Color (test code Yellow Yellow = 5778-6) Appearance (test code Clear Clear = 5767-9) WBC Esterase (test Negative Negative code = 5799-2) Protein (test code = 4+ Negative/Trace A 49688-9) Glucose (test code = Trace Negative A 2349-9) Ketones (test code = Negative Negative 2514-8) Occult Blood (test Trace Negative A code = 5794-3) Bilirubin (test code = Negative Negative 5770-3) Urobilinogen,Semi-Qn 0.2 mg/dL 0.2-1.0 (test code = 81933-4) Nitrite, Urine (test Negative Negative code = 5802-4) Microscopic See below: Microscopic was Examination (test code indic ated and was = 32711-9) performed.

P erformed by:
[facility] [place] ()

[facility] Description: Urinalysis, [id number] 04:43:00 Test Item Value Reference Range Interpretation Comments Specific [place] (test 1.012 1.005-1.030 code = 2965-2) pH (test code = 5.5 5.0-7.5 5803-2) Urine-Color (test code Yellow Yellow = 5778-6) Appearance (test code Clear Clear = 5767-9) WBC Esterase (test Negative Negative code = 5799-2) Protein (test code = 4+ Negative/Trace A 59815-2) Glucose (test code = Trace Negative A 2349-9) Ketones (test code = Negative Negative 2514-8) Occult Blood (test Trace Negative A code = 5794-3) Bilirubin (test code = Negative Negative 5770-3) Urobilinogen,Semi-Qn 0.2 mg/dL 0.2-1.0 (test code = 51128-3) Nitrite, Urine (test Negative Negative code = 5802-4) Microscopic See below: Microscopic was Examination (test code indic ated and was = 76483-9) performed.

P erformed by:
[facility] [place] ()

[facility] Description: Urinalysis, Ncqcowku5619-80-95 04:43:00 [facility]opic [facility] Description: Urinalysis, Complete 2020-10-30 04:43:00Microscopic [facility] Description: Urinalysis, Ukijgngy1433-09-41 04:43:00Microscopic [facility] Description: Urinalysis, Blhnjnrj6640-81-45 04:43:00Microscopic Examination [facility] Description: Urinalysis, Gcpzagmn6151-74-78 04:43:00 [facility]scopic [facility] Description: Urinalysis, Complete 2020-10-30 04:43:00[facility]scopic [facility] Description: Urinalysis, Sbhphxmd4014-19-80 04:43:00[facility]scopic [facility] Description: Urinalysis, Aiflbyoz8414-01-88 04:43:00Microscopic Examination [facility] Description: Urinalysis, Hogklstt0569-83-57 04:43:00 Microscopic [facility] Description: Urinalysis, Complete 2020-10-30 04:43:00Microscopic [facility] Description: Urinalysis, Rogbvplc3395-77-51 04:43:00Microscopic [facility] Description: Urinalysis, Ijftjymd2713-89-90 04:43:00Microscopic Examination [facility] Description: Urinalysis, Kzsswygc1436-59-53 04:43:00 Microscopic [facility] Description: Urinalysis, Complete 2020-10-30 04:43:00Microscopic [facility] Description: Urinalysis, Tesondcj4456-19-41 04:43:00Microscopic [facility] Description: Urinalysis, Ttazsrda2521-21-91 04:43:00Microscopic Examination [facility] Description: Urinalysis, Pzwbjrka5742-82-37 04:43:00 Microscopic [facility] Description: Urinalysis, Complete 2020-10-30 04:43:00Microscopic [facility] Description: Urinalysis, Utpbvsdq2685-91-09 04:43:00Microscopic Examination[facility] Description: Urinalysis, Snpiqign4327-47-26 04:43:00Microscopic Examination [facility] Description: 25-hydroxyvitamin D3 [Mass/volume] in Serum or [id number] 04:26:00 Test Item Value Reference Range Interpretation Comments Vitamin D, 12.0 ng/mL 30.0-100.0 L Vitamin D defic iency has 25-Hydroxy (test been define d by the code = 90307-8) [place] [employer] [facility] and an Endocrine So ciety practice guidel ine as alevel of serum 25-OH vitamin D less than 20 ng/mL (1,2).The Endocrine Society went on to further define vitamin Dinsufficiency as a level between 21 and 29 ng/mL (2).1. IOM (Ins titute of Medicine). 2010 . Dietary reference int akes for calcium and D. [place]: [employer] .2. Dileep MF, Ela NC, Stephane blake EMERSON, et al. Evaluatio n, treatment, and prevention of vitamin D deficiency: an Endocrine Society clinica l practice guideline. EM. 2010; 96(7):1911-30.< br/>
P erformed by:
[facility] ([place])

[facility] Description: 25-hydroxyvitamin D3 [Mass/volume] in Serum or [id number] 04:26:00 Test Item Value Reference Range Interpretation Comments Vitamin D, 12.0 ng/mL 30.0-100.0 L Vitamin D defic iency has 25-Hydroxy (test been define d by the code = 45217-4) [facility] and an Endocrine [facility] practice guidel ine as alevel of serum 25-OH vitamin D less than 20 ng/mL (1,2).The Endocrine Society went on to further define vitamin Dinsufficiency as a level between 21 and 29 ng/mL (2).1. IOM (Ins titute of Medicine). 2010 . Dietary reference int akes for calcium and D. [facility]: [employer] .2. Dileep MF, Ela SANTA, Stephane blake EMERSON, et al. Evaluatio n, treatment, and prevention of vitamin D deficiency: an Endocrine Society clinica l practice guideline. EM. 2010; 96(7):1911-30.< br/>
P erformed by:
[facility] ([place])

[facility] Description: 25-hydroxyvitamin D3 [Mass/volume] in Serum or [id number] 04:26:00 Test Item Value Reference Range Interpretation Comments Vitamin D, 12.0 ng/mL 30.0-100.0 L Vitamin D defic iency has 25-Hydroxy (test been define d by the code = 98935-1) [place] an Endocrine [facility] practice guidel ine as alevel of serum 25-OH vitamin D less than 20 ng/mL (1,2).The Endocrine Society went on to further define vitamin Dinsufficiency as a level between 21 and 29 ng/mL (2).1. IOM (Ins titute of Medicine). 2010 . Dietary reference int akes for calcium and D. [facility]: [employer] .2. Dileep AREVALO, Ela SANTA, Stephane EMERSON, et al. Evaluatio n, treatment, and prevention of vitamin D deficiency: an Endocrine Society clinica l practice guideline. [facility]. 2010; 96(7):1911-30.< br/>
P erformed by:
[facility] ([place])

[facility] Description: 25-hydroxyvitamin D3 [Mass/volume] in Serum or [id number] 04:26:00 Test Item Value Reference Range Interpretation Comments Vitamin D, 12.0 ng/mL 30.0-100.0 L Vitamin D defic iency has 25-Hydroxy (test been define d by the code = 34914-9) [place] and an Endocrine [facility] practice guidel ine as alevel of serum 25-OH vitamin D less than 20 ng/mL (1,2).The Endocrine Society went on to further define vitamin Dinsufficiency as a level between 21 and 29 ng/mL (2).1. IOM (Ins titute of Medicine). 2010 . Dietary reference int akes for calcium and D. [facility]: [employer] .2. Dileep AREVALO, Ela SANTA, Stephane EMERSON, et al. Evaluatio n, treatment, and prevention of vitamin D deficiency: an Endocrine Society clinica l practice guideline. [facility]. 2010; 96(7):1911-30.< br/>
P erformed by:
[facility] (HD)

[facility] Description: 25-hydroxyvitamin D3 [Mass/volume] in Serum or [id number] 04:26:00 Test Item Value Reference Range Interpretation Comments Vitamin D, 12.0 ng/mL 30.0-100.0 L Vitamin D defic iency has 25-Hydroxy (test been define d by the code = 59014-4) [facility] [employer] [facility] Endocrine [facility] practice guidel ine as alevel of serum 25-OH vitamin D less than 20 ng/mL (1,2).The Endocrine Society went on to further define vitamin Dinsufficiency as a level between 21 and 29 ng/mL (2).1. IOM (Ins titute of Medicine). 2010 . Dietary reference int akes for calcium and D. [facility]: [employer] .2. Ela Oliveros, Stephane EMERSON, et al. Evaluatio n, treatment, and prevention of vitamin D deficiency: an Endocrine Society clinica l practice guideline. EM. 2010; 96(7):191-30.< br/>
P erformed by:
[facility] ([place])

[facility] Description: 25-hydroxyvitamin D3 [Mass/volume] in Serum or [id number] 04:26:00 Test Item Value Reference Range Interpretation Comments Vitamin D, 12.0 ng/mL 30.0-100.0 L Vitamin D defic iency has 25-Hydroxy (test been define d by the code = 01834-2) [facility] Endocrine [facility] practice guidel ine as alevel of serum 25-OH vitamin D less than 20 ng/mL (1,2).The Endocrine Society went on to further define vitamin Dinsufficiency as a level between 21 and 29 ng/mL (2).1. IOM (Ins titute of Medicine). 2010 . Dietary reference int akes for calcium and D. [facility]: [employer] .2. Ela Oliveros, Stephane EMERSON, et al. Evaluatio n, treatment, and prevention of vitamin D deficiency: an Endocrine Society clinica l practice guideline. EM. 2010; 96(7):1911-30.< br/>
P erformed by:
[facility] ([place])

[facility] Description: 25-hydroxyvitamin D3 [Mass/volume] in Serum or [id number] 04:26:00 Test Item Value Reference Range Interpretation Comments Vitamin D, 12.0 ng/mL 30.0-100.0 L Vitamin D defic iency has 25-Hydroxy (test been define d by the code = 01748-7) [facility] [employer] [facility] Endocrine So ciety practice guidel ine as alevel of serum 25-OH vitamin D less than 20 ng/mL (1,2).The Endocrine Society went on to further define vitamin Dinsufficiency as a level between 21 and 29 ng/mL (2).1. IOM (Ins titute of Medicine). 2010 . Dietary reference int akes for calcium and D. [facility]: [employer] .2. Ela Oliveros, Stephane EMERSON, et al. Evaluatio n, treatment, and prevention of vitamin D deficiency: an Endocrine Society clinica l practice guideline. [place] [facility]. 2010; 96(7):1911-30.< br/>
P erformed by:
[facility] ([place])

[facility] Description: 25-hydroxyvitamin D3 [Mass/volume] in Serum or [id number] 04:26:00 Test Item Value Reference Range Interpretation Comments Vitamin D, 12.0 ng/mL 30.0-100.0 L Vitamin D defic iency has 25-Hydroxy (test been define d by the code = 15596-1) [facility] Endocrine [facility] practice guidel ine as alevel of serum 25-OH vitamin D less than 20 ng/mL (1,2).The Endocrine Society went on to further define vitamin Dinsufficiency as a level between 21 and 29 ng/mL (2).1. IOM (Ins [facility]). 2010 . Dietary reference int akes for calcium and D. [place]: [employer] .2. Ela Oliveros, Stephane EMERSON, et al. Evaluatio n, treatment, and prevention of vitamin D deficiency: an Endocrine Society clinica l practice guideline. [place] [facility]. 2010; 96(7):1911-30.< br/>
P erformed by:
[facility] ([place])

[facility] Description: 25-hydroxyvitamin D3 [Mass/volume] in Serum or [id number] 04:26:00 Test Item Value Reference Range Interpretation Comments Vitamin D, 12.0 ng/mL 30.0-100.0 L Vitamin D defic iency has 25-Hydroxy (test been define d by the code = 14675-2) [facility] [employer] [facility] Endocrine So ciety practice guidel ine as alevel of serum 25-OH vitamin D less than 20 ng/mL (1,2).The Endocrine Society went on to further define vitamin Dinsufficiency as a level between 21 and 29 ng/mL (2).1. IOM (Ins titute of Medicine). 2010 . Dietary reference int akes for calcium and D. [facility]: [employer] .2. Ela Oliveros, Stephane EMERSON, et al. Evaluatio n, treatment, and prevention of vitamin D deficiency: an Endocrine Society clinica l practice guideline. EM. 2010; 96(7):191-.< br/>
P erformed by:
[facility] (HD)

[facility] Description: 25-hydroxyvitamin D3 [Mass/volume] in Serum or [id number] 04:26:00 Test Item Value Reference Range Interpretation Comments Vitamin D, 12.0 ng/mL 30.0-100.0 L Vitamin D defic iency has 25-Hydroxy (test been define d by the code = 46738-7) [facility] [employer] [facility] an Endocrine [facility] practice guidel ine as alevel of serum 25-OH vitamin D less than 20 ng/mL (1,2).The Endocrine Society went on to further define vitamin Dinsufficiency as a level between 21 and 29 ng/mL (2).1. IOM (Ins titute of Medicine). 2010 . Dietary reference int akes for calcium and D. [facility]: [employer] .2. Ela Oliveros, Stephane EMERSON, et al. Evaluatio n, treatment, and prevention of vitamin D deficiency: an Endocrine Society clinica l practice guideline. EM. 2010; 96(7):191-.< br/>
P erformed by:
[facility] ([place])

[facility] Description: 25-hydroxyvitamin D3 [Mass/volume] in Serum or [id number] 04:26:00 Test Item Value Reference Range Interpretation Comments Vitamin D, 12.0 ng/mL 30.0-100.0 L Vitamin D defic iency has 25-Hydroxy (test been define d by the code = 85337-2) [facility] [employer] [facility] an Endocrine [facility] practice guidel ine as alevel of serum 25-OH vitamin D less than 20 ng/mL (1,2).The Endocrine Society went on to further define vitamin Dinsufficiency as a level between 21 and 29 ng/mL (2).1. IOM (Ins titute of Medicine). 2010 . Dietary reference int akes for calcium and D. [place]: [employer] .2. Ela Oliveros, Stephane EMERSON, et al. Evaluatio n, treatment, and prevention of vitamin D deficiency: an Endocrine Society clinica l practice guideline. EM. 2010; 96(7):1911-30.< br/>
[facility]:
[facility]

[facility] Description: 25-hydroxyvitamin D3 [Mass/volume] in Serum or [id number] 04:26:00 Test Item Value Reference Range Interpretation Comments Vitamin D, 12.0 ng/mL 30.0-100.0 L Vitamin D defic iency has 25-Hydroxy (test been define d by the code = 04787-7) [facility] [employer] [facility] an Endocrine [facility] practice guidel ine as alevel of serum 25-OH vitamin D less than 20 ng/mL (1,2).The Endocrine Society went on to further define vitamin Dinsufficiency as a level between 21 and 29 ng/mL (2).1. IOM (Ins titute of Medicine). 2010 . Dietary reference int akes for calcium and D. [place]: [employer] .2. Ela Oliveros, Stephane EMERSON, et al. Evaluatio n, treatment, and prevention of vitamin D deficiency: an Endocrine Society clinica l practice guideline. EM. 2010; 96(7):1911-30.< br/>
P erformed by:
[facility] (HD)

[facility] Description: 25-hydroxyvitamin D3 [Mass/volume] in Serum or [id number] 04:26:00 Test Item Value Reference Range Interpretation Comments Vitamin D, 12.0 ng/mL 30.0-100.0 L Vitamin D defic iency has 25-Hydroxy (test been define d by the code = 39467-5) [facility] [employer] [facility] and an Endocrine [facility] practice guidel ine as alevel of serum 25-OH vitamin D less than 20 ng/mL (1,2).The Endocrine Society went on to further define vitamin Dinsufficiency as a level between 21 and 29 ng/mL (2).1. IOM (Ins titute of Medicine). 2010 . Dietary reference int akes for calcium and D. [place]: [employer] .2. Ela Oliveros, Stephane EMERSON, et al. Evaluatio n, treatment, and prevention of vitamin D deficiency: an Endocrine Society clinica l practice guideline. EM. 2010; 96(7):1911-30.< br/>
P erformed by:
[facility] (HD)

[facility] Description: 25-hydroxyvitamin D3 [Mass/volume] in Serum or [id number] 04:26:00 Test Item Value Reference Range Interpretation Comments Vitamin D, 12.0 ng/mL 30.0-100.0 L Vitamin D defic iency has 25-Hydroxy (test been define d by the code = 41041-1) [facility] [employer] [facility] and an Endocrine [facility] practice guidel ine as alevel of serum 25-OH vitamin D less than 20 ng/mL (1,2).The Endocrine Society went on to further define vitamin Dinsufficiency as a level between 21 and 29 ng/mL (2).1. IOM (Ins titute of Medicine). 2010 . Dietary reference int akes for calcium and D. [place]: [employer] .2. Ela Oliveros, Stephane EMERSON, et al. Evaluatio n, treatment, and prevention of vitamin D deficiency: an Endocrine Society clinica l practice guideline. EM. 2010; 96(7):1911-30.< br/>
P erformed by:
[facility] ([place])

[facility] Description: 25-hydroxyvitamin D3 [Mass/volume] in Serum or [id number] 04:26:00 Test Item Value Reference Range Interpretation Comments Vitamin D, 12.0 ng/mL 30.0-100.0 L Vitamin D defic iency has 25-Hydroxy (test been define d by the code = 74607-8) [facility] an Endocrine [facility] practice guidel ine as alevel of serum 25-OH vitamin D less than 20 ng/mL (1,2).The Endocrine Society went on to further define vitamin Dinsufficiency as a level between 21 and 29 ng/mL (2).1. IOM (Ins titute of Medicine). 2010 . Dietary reference int akes for calcium and D. [place]: [employer] .2. Dileep MF, Ela SANTA, Stephane blake EMERSON, et al. Evaluatio n, treatment, and prevention of vitamin D deficiency: an Endocrine Society clinica l practice guideline. EM. 2010; 96(7):1911-30.< br/>
P erformed by:
[facility] ([place])

[facility] Description: 25-hydroxyvitamin D3 [Mass/volume] in Serum or [id number] 04:26:00 Test Item Value Reference Range Interpretation Comments Vitamin D, 12.0 ng/mL 30.0-100.0 L Vitamin D defic iency has 25-Hydroxy (test been define d by the code = 94320-0) [facility] [employer] [facility] and an Endocrine [facility] practice guidel ine as alevel of serum 25-OH vitamin D less than 20 ng/mL (1,2).The Endocrine Society went on to further define vitamin Dinsufficiency as a level between 21 and 29 ng/mL (2).1. IOM (Ins titute of Medicine). 2010 . Dietary reference int akes for calcium and D. [place]: [employer] .2. Dileep AREVALO, Ela SANTA, Stephane EMERSON, et al. Evaluatio n, treatment, and prevention of vitamin D deficiency: an Endocrine Society clinica l practice guideline. EM. 2010; 96(7):1911-30.< br/>
P erformed by:
[facility] ([place])

[facility] Description: 25-hydroxyvitamin D3 [Mass/volume] in Serum or [id number] 04:26:00 Test Item Value Reference Range Interpretation Comments Vitamin D, 12.0 ng/mL 30.0-100.0 L Vitamin D defic iency has 25-Hydroxy (test been define d by the code = 73115-3) [facility] [employer] [facility] an Endocrine [facility] practice guidel ine as alevel of serum 25-OH vitamin D less than 20 ng/mL (1,2).The Endocrine Society went on to further define vitamin Dinsufficiency as a level between 21 and 29 ng/mL (2).1. IOM (Ins titute of Medicine). 2010 . Dietary reference int akes for calcium and D. [facility]: [employer] .2. Dileep AREVALO, Ela SANTA, Stephane EMERSON, et al. Evaluatio n, treatment, and prevention of vitamin D deficiency: an Endocrine Society clinica l practice guideline. EM. 2010; 96(7):1911-30.< br/>
P erformed by:
[facility] ([place])

[facility] Description: 25-hydroxyvitamin D3 [Mass/volume] in Serum or [id number] 04:26:00 Test Item Value Reference Range Interpretation Comments Vitamin D, 12.0 ng/mL 30.0-100.0 L Vitamin D defic iency has 25-Hydroxy (test been define d by the code = 02684-3) [facility] and an Endocrine [facility] practice guidel ine as alevel of serum 25-OH vitamin D less than 20 ng/mL (1,2).The Endocrine Society went on to further define vitamin Dinsufficiency as a level between 21 and 29 ng/mL (2).1. IOM (Ins titute of Medicine). 2010 . Dietary reference int akes for calcium and D. [facility]: [employer] .2. Ela Oliveros, Stephane EMERSON, et al. Evaluatio n, treatment, and prevention of vitamin D deficiency: an Endocrine Society clinica l practice guideline. EM. 2010; 96(7):1911-30.< br/>
P erformed by:
[facility] ([place])

[facility] Description: 25-hydroxyvitamin D3 [Mass/volume] in Serum or [id number] 04:26:00 Test Item Value Reference Range Interpretation Comments Vitamin D, 12.0 ng/mL 30.0-100.0 L Vitamin D defic iency has 25-Hydroxy (test been define d by the code = 95505-7) [facility] and an Endocrine [facility] practice guidel ine as alevel of serum 25-OH vitamin D less than 20 ng/mL (1,2).The Endocrine Society went on to further define vitamin Dinsufficiency as a level between 21 and 29 ng/mL (2).1. IOM (Ins titute of Medicine). 2010 . Dietary reference int akes for calcium and D. [facility]: [employer] .2. Ela Oliveros, Stephane EMERSON, et al. Evaluatio n, treatment, and prevention of vitamin D deficiency: an Endocrine Society clinica l practice guideline. EM. 2010; 96(7):1911-30.< br/>
P erformed by:
[facility] ([place])

[facility] Description: 25-hydroxyvitamin D3 [Mass/volume] in Serum or [id number] 04:26:00 Test Item Value Reference Range Interpretation Comments Vitamin D, 12.0 ng/mL 30.0-100.0 L Vitamin D defic iency has 25-Hydroxy (test been define d by the code = 64385-4) [facility] Endocrine [facility] guidel [facility]e as alevel of serum 25-OH vitamin D less than 20 ng/mL (1,2).The Endocrine Society went on to further define vitamin Dinsufficiency as a level between 21 and 29 ng/mL (2).1. IOM (Ins titute of Medicine). 2010 . Dietary reference int akes for calcium and D. [place]: [employer] .2. Dileep MF, Ela NC, Stephane blake EMERSON, et al. Evaluatio n, treatment, and prevention of vitamin D deficiency: an Endocrine Society clinica l practice guideline. [place] EM. 2010; 96(7):1911-30.< br/>
P erformed by:
[facility] ([place])

[facility] Description: CBC With Differential/Iwoqibib8875-65-28 04:00:00 Test Item Value Reference Range Interpretation [...] (test 1 % Not Estab. code = 99382-0) Immature Grans (Abs) (test code 0.0 x10E3/uL 0.0-0.1 = 16912-8) NRBC (test code = 68473-2) Hematology Comments: (test code = 26596-6) [facility] Description: CBC With Differential/Gqiqomgr9146-00-45 04:00:00 Test Item Value Reference Range Interpretation [...] (test 1 % Not Estab. code = 23445-1) Immature Grans (Abs) (test code 0.0 x10E3/uL 0.0-0.1 = 84563-3) NRBC (test code = 51926-6) Hematology Comments: (test code = 98050-4) [facility] Description: CBC With Differential/Cyaxsqvq4008-24-74 04:00:00 Test Item Value Reference Range Interpretation [...] (test 1 % Not Estab. code = 11089-5) Immature Grans (Abs) (test code 0.0 x10E3/uL 0.0-0.1 = 37568-2) NRBC (test code = 86537-5) Hematology Comments: (test code = 34523-6) [facility] Description: CBC With Differential/Pucfkcij0623-32-29 04:00:00 Test Item Value Reference Range Interpretation [...] (test 1 % Not Estab. code = 36251-6) Immature Grans (Abs) (test code 0.0 x10E3/uL 0.0-0.1 = 78626-6) NRBC (test code = 36255-8) Hematology Comments: (test code = 81160-5) [facility] Description: CBC With Differential/Turinyef6194-17-37 04:00:00 Test Item Value Reference Range Interpretation [...] (test 1 % Not Estab. code = 59522-7) Immature Grans (Abs) (test code 0.0 x10E3/uL 0.0-0.1 = 21300-7) NRBC (test code = 59320-4) Hematology Comments: (test code = 65748-4) [facility] Description: CBC With Differential/Dyfusnzk0544-49-74 04:00:00 Test Item Value Reference Range Interpretation [...] (test 1 % Not Estab. code = 15926-0) Immature Grans (Abs) (test code 0.0 x10E3/uL 0.0-0.1 = 08683-3) NRBC (test code = 67974-5) Hematology Comments: (test code = 95542-3) [facility] Description: CBC With Differential/Izudpvam3979-71-58 04:00:00 Test Item Value Reference Range Interpretation [...] (test 1 % Not Estab. code = 69712-8) Immature Grans (Abs) (test code 0.0 x10E3/uL 0.0-0.1 = 50485-0) NRBC (test code = 40792-5) Hematology Comments: (test code = 90831-1) [facility] Description: CBC With Differential/Djcjhegt4415-78-18 04:00:00 Test Item Value Reference Range Interpretation [...] (test 1 % Not Estab. code = 16023-3) Immature Grans (Abs) (test code 0.0 x10E3/uL 0.0-0.1 = 63641-8) NRBC (test code = 24204-7) Hematology Comments: (test code = 33145-1) [facility] Description: CBC With Differential/Qfiglilm0601-26-06 04:00:00 Test Item Value Reference Range Interpretation [...] (test 1 % Not Estab. code = 19445-3) Immature Grans (Abs) (test code 0.0 x10E3/uL 0.0-0.1 = 61438-4) NRBC (test code = 00648-7) Hematology Comments: (test code = 72373-9) [facility] Description: CBC With Differential/Umtdtnnp4103-57-67 04:00:00 Test Item Value Reference Range Interpretation [...] (test 1 % Not Estab. code = 70264-1) Immature Grans (Abs) (test code 0.0 x10E3/uL 0.0-0.1 = 11253-6) NRBC (test code = 61311-8) Hematology Comments: (test code = 73858-1) [facility] Description: CBC With Differential/Qyefaqbi2025-24-03 04:00:00 Test Item Value Reference Range Interpretation [...] (test 1 % Not Estab. code = 77996-8) Immature Grans (Abs) (test code 0.0 x10E3/uL 0.0-0.1 = 67950-3) NRBC (test code = 25288-4) Hematology Comments: (test code = 21549-3) [facility] Description: CBC With Differential/Vlhgeuew9246-52-21 04:00:00 Test Item Value Reference Range Interpretation [...] (test 1 % Not Estab. code = 29046-7) Immature Grans (Abs) (test code 0.0 x10E3/uL 0.0-0.1 = 12978-5) NRBC (test code = 33686-7) Hematology Comments: (test code = 01924-6) [facility] Description: CBC With Differential/Ycitthuc0649-04-57 04:00:00 Test Item Value Reference Range Interpretation [...] (test 1 % Not Estab. code = 95038-5) Immature Grans (Abs) (test code 0.0 x10E3/uL 0.0-0.1 = 71742-9) NRBC (test code = 80423-3) Hematology Comments: (test code = 24806-6) [facility] Description: CBC With Differential/Rqyfgtki2843-68-26 04:00:00 Test Item Value Reference Range Interpretation [...] (test 1 % Not Estab. code = 98798-1) Immature Grans (Abs) (test code 0.0 x10E3/uL 0.0-0.1 = 69288-9) NRBC (test code = 46524-4) Hematology Comments: (test code = 97680-0) [facility] Description: CBC With Differential/Slfvxdoa4062-72-46 04:00:00 Test Item Value Reference Range Interpretation [...] (test 1 % Not Estab. code = 48084-2) Immature Grans (Abs) (test code 0.0 x10E3/uL 0.0-0.1 = 71184-2) NRBC (test code = 32253-5) Hematology Comments: (test code = 05988-1) [facility] Description: CBC With Differential/Cykfakry0835-45-62 04:00:00 Test Item Value Reference Range Interpretation [...] (test 1 % Not Estab. code = 15062-2) Immature Grans (Abs) (test code 0.0 x10E3/uL 0.0-0.1 = 62637-8) NRBC (test code = 33940-8) Hematology Comments: (test code = 59269-6) [facility] Description: CBC With Differential/Lvpeuiyr5185-71-62 04:00:00 Test Item Value Reference Range Interpretation [...] (test 1 % Not Estab. code = 44848-2) Immature Grans (Abs) (test code 0.0 x10E3/uL 0.0-0.1 = 40261-3) NRBC (test code = 73175-0) Hematology Comments: (test code = 89939-5) [facility] Description: CBC With Differential/Agiqtayo4586-24-65 04:00:00 Test Item Value Reference Range Interpretation [...] (test 1 % Not Estab. code = 48976-0) Immature Grans (Abs) (test code 0.0 x10E3/uL 0.0-0.1 = 11855-9) NRBC (test code = 12193-0) Hematology Comments: (test code = 80636-8) [facility] Description: CBC With Differential/Phlhmqlw4330-01-38 04:00:00 Test Item Value Reference Range Interpretation [...] (test 1 % Not Estab. code = 76436-2) Immature Grans (Abs) (test code 0.0 x10E3/uL 0.0-0.1 = 55283-8) NRBC (test code = 49551-9) Hematology Comments: (test code = 27706-6) [facility] Description: CBC With Differential/Ldiebyud3461-00-12 04:00:00 Test Item Value Reference Range Interpretation [...] (test 1 % Not Estab. code = 72152-3) Immature Grans (Abs) (test code 0.0 x10E3/uL 0.0-0.1 = 82864-0) NRBC (test code = 88795-0) Hematology Comments: (test code = 97930-1) [facility] Description: Magnesium [Mass/volume] in Serum or Plasma 2020-10-30 02:31:00 Test Item Value Reference Range Interpretation Comments Magnesium (test code = 84120-2) 1.6 mg/dL 1.6-2.3 [facility] Description: Magnesium [Mass/volume] in Serum or Plasma 2020-10-30 02:31:00 Test Item Value Reference Range Interpretation Comments Magnesium (test code = 38821-4) 1.6 mg/dL 1.6-2.3 [facility] Description: Magnesium [Mass/volume] in Serum or Plasma 2020-10-30 02:31:00 Test Item Value Reference Range Interpretation Comments Magnesium (test code = 79077-2) 1.6 mg/dL 1.6-2.3 [facility] Description: Magnesium [Mass/volume] in Serum or Plasma 2020-10-30 02:31:00 Test Item Value Reference Range Interpretation Comments Magnesium (test code = 69580-4) 1.6 mg/dL 1.6-2.3 [facility] Description: Magnesium [Mass/volume] in Serum or Plasma 2020-10-30 02:31:00 Test Item Value Reference Range Interpretation Comments Magnesium (test code = 91136-4) 1.6 mg/dL 1.6-2.3 [facility] Description: Magnesium [Mass/volume] in Serum or Plasma 2020-10-30 02:31:00 Test Item Value Reference Range Interpretation Comments Magnesium (test code = 56726-9) 1.6 mg/dL 1.6-2.3 [facility] Description: Magnesium [Mass/volume] in Serum or Plasma 2020-10-30 02:31:00 Test Item Value Reference Range Interpretation Comments Magnesium (test code = 63139-7) 1.6 mg/dL 1.6-2.3 [facility] Description: Magnesium [Mass/volume] in Serum or Plasma 2020-10-30 02:31:00 Test Item Value Reference Range Interpretation Comments Magnesium (test code = 02832-0) 1.6 mg/dL 1.6-2.3 [facility] Description: Magnesium [Mass/volume] in Serum or Plasma 2020-10-30 02:31:00 Test Item Value Reference Range Interpretation Comments Magnesium (test code = 88712-3) 1.6 mg/dL 1.6-2.3 [facility] Description: Magnesium [Mass/volume] in Serum or Plasma 2020-10-30 02:31:00 Test Item Value Reference Range Interpretation Comments Magnesium (test code = 10066-1) 1.6 mg/dL 1.6-2.3 [facility] Description: Magnesium [Mass/volume] in Serum or Plasma 2020-10-30 02:31:00 Test Item Value Reference Range Interpretation Comments Magnesium (test code = 03800-3) 1.6 mg/dL 1.6-2.3 [facility] Description: Magnesium [Mass/volume] in Serum or Plasma 2020-10-30 02:31:00 Test Item Value Reference Range Interpretation Comments Magnesium (test code = 20161-5) 1.6 mg/dL 1.6-2.3 [facility] Description: Magnesium [Mass/volume] in Serum or Plasma 2020-10-30 02:31:00 Test Item Value Reference Range Interpretation Comments Magnesium (test code = 29152-5) 1.6 mg/dL 1.6-2.3 [facility] Description: Magnesium [Mass/volume] in Serum or Plasma 2020-10-30 02:31:00 Test Item Value Reference Range Interpretation Comments Magnesium (test code = 18285-2) 1.6 mg/dL 1.6-2.3 [facility] Description: Magnesium [Mass/volume] in Serum or Plasma 2020-10-30 02:31:00 Test Item Value Reference Range Interpretation Comments Magnesium (test code = 77195-5) 1.6 mg/dL 1.6-2.3 [facility] Description: Magnesium [Mass/volume] in Serum or Plasma 2020-10-30 02:31:00 Test Item Value Reference Range Interpretation Comments Magnesium (test code = 83065-7) 1.6 mg/dL 1.6-2.3 [facility] Description: Magnesium [Mass/volume] in Serum or Plasma 2020-10-30 02:31:00 Test Item Value Reference Range Interpretation Comments Magnesium (test code = 33668-8) 1.6 mg/dL 1.6-2.3 [facility] Description: Magnesium [Mass/volume] in Serum or Plasma 2020-10-30 02:31:00 Test Item Value Reference Range Interpretation Comments Magnesium (test code = 76468-1) 1.6 mg/dL 1.6-2.3 [facility] Description: Magnesium [Mass/volume] in Serum or Plasma 2020-10-30 02:31:00 Test Item Value Reference Range Interpretation Comments Magnesium (test code = 50622-0) 1.6 mg/dL 1.6-2.3 [facility] Description: Magnesium [Mass/volume] in Serum or Plasma 2020-10-30 02:31:00 Test Item Value Reference Range Interpretation Comments Magnesium (test code = 88085-3) 1.6 mg/dL 1.6-2.3 [facility] Description: Lipid [id number] 02:17:00 Test Item Value Reference Range Interpretation Comments Cholesterol, Total (test code = 167 mg/dL 930-745 9888-3) Triglycerides (test code = 2571-8) 60 mg/dL 0-149 HDL Cholesterol (test code = 33 mg/dL >39 L 2085-9) VLDL Cholesterol Renuka (test code = 12 mg/dL 5-40 42340-1) LDL Chol Calc (NIH) (test code = 122 mg/dL 0-99 H 86588-8) Comment: (test code = 63749-8) [facility] Description: Lipid [id number] 02:17:00 Test Item Value Reference Range Interpretation Comments Cholesterol, Total (test code = 167 mg/dL 582-203 3135-3) Triglycerides (test code = 2571-8) 60 mg/dL 0-149 HDL Cholesterol (test code = 33 mg/dL >39 L 5-9) VLDL Cholesterol Renuka (test code = 12 mg/dL 5-40 13737-7) LDL Chol Calc (NIH) (test code = 122 mg/dL 0-99 H 05217-5) Comment: (test code = 45275-9) [facility] Description: Lipid [id number] 02:17:00 Test Item Value Reference Range Interpretation Comments Cholesterol, Total (test code = 167 mg/dL 140-208 5382-3) Triglycerides (test code = 2571-8) 60 mg/dL 0-149 HDL Cholesterol (test code = 33 mg/dL >39 L 2085-9) VLDL Cholesterol Renuka (test code = 12 mg/dL 5-40 74060-5) LDL Chol Calc (NIH) (test code = 122 mg/dL 0-99 H 62342-6) Comment: (test code = 09277-2) [facility] Description: Lipid [id number] 02:17:00 Test Item Value Reference Range Interpretation Comments Cholesterol, Total (test code = 167 mg/dL 193-997 0888-3) Triglycerides (test code = 2571-8) 60 mg/dL 0-149 HDL Cholesterol (test code = 33 mg/dL >39 L 2085-9) VLDL Cholesterol Renuka (test code = 12 mg/dL 5-40 07804-0) LDL Chol Calc (NIH) (test code = 122 mg/dL 0-99 H 42254-3) Comment: (test code = 16026-0) [facility] Description: Lipid [id number] 02:17:00 Test Item Value Reference Range Interpretation Comments Cholesterol, Total (test code = 167 mg/dL 256-113 3342-3) Triglycerides (test code = 2571-8) 60 mg/dL 0-149 HDL Cholesterol (test code = 33 mg/dL >39 L 5-9) VLDL Cholesterol Renuka (test code = 12 mg/dL 5-40 37090-1) LDL Chol Calc (NIH) (test code = 122 mg/dL 0-99 H 98655-6) Comment: (test code = 67684-8) [facility] Description: Lipid [id number] 02:17:00 Test Item Value Reference Range Interpretation Comments Cholesterol, Total (test code = 167 mg/dL 161-895 0015-3) Triglycerides (test code = 2571-8) 60 mg/dL 0-149 HDL Cholesterol (test code = 33 mg/dL >39 L 5-9) VLDL Cholesterol Renuka (test code = 12 mg/dL 5-40 97372-4) LDL Chol Calc (NIH) (test code = 122 mg/dL 0-99 H 22253-5) Comment: (test code = 59588-1) [facility] Description: Lipid [id number] 02:17:00 Test Item Value Reference Range Interpretation Comments Cholesterol, Total (test code = 167 mg/dL 875-429 1027-3) Triglycerides (test code = 2571-8) 60 mg/dL 0-149 HDL Cholesterol (test code = 33 mg/dL >39 L 2085-9) VLDL Cholesterol Renuka (test code = 12 mg/dL 5-40 94719-5) LDL Chol Calc (NIH) (test code = 122 mg/dL 0-99 H 44385-2) Comment: (test code = 49511-5) [facility] Description: Lipid [id number] 02:17:00 Test Item Value Reference Range Interpretation Comments Cholesterol, Total (test code = 167 mg/dL 377-623 7586-3) Triglycerides (test code = 2571-8) 60 mg/dL 0-149 HDL Cholesterol (test code = 33 mg/dL >39 L 2085-9) VLDL Cholesterol Renuka (test code = 12 mg/dL 5-40 48892-2) LDL Chol Calc (NIH) (test code = 122 mg/dL 0-99 H 45963-1) Comment: (test code = 46039-4) [facility] Description: Lipid [id number] 02:17:00 Test Item Value Reference Range Interpretation Comments Cholesterol, Total (test code = 167 mg/dL 557-626 7543-3) Triglycerides (test code = 2571-8) 60 mg/dL 0-149 HDL Cholesterol (test code = 33 mg/dL >39 L 2085-9) VLDL Cholesterol Renuka (test code = 12 mg/dL 5-40 75473-1) LDL Chol Calc (NIH) (test code = 122 mg/dL 0-99 H 84974-2) Comment: (test code = 32317-5) [facility] Description: Lipid [id number] 02:17:00 Test Item Value Reference Range Interpretation Comments Cholesterol, Total (test code = 167 mg/dL 385-634 5862-3) Triglycerides (test code = 2571-8) 60 mg/dL 0-149 HDL Cholesterol (test code = 33 mg/dL >39 L 2085-9) VLDL Cholesterol Renuka (test code = 12 mg/dL 5-40 49646-0) LDL Chol Calc (NIH) (test code = 122 mg/dL 0-99 H 04987-8) Comment: (test code = 71930-2) [facility] Description: Lipid [id number] 02:17:00 Test Item Value Reference Range Interpretation Comments Cholesterol, Total (test code = 167 mg/dL 367-865 1835-3) Triglycerides (test code = 2571-8) 60 mg/dL 0-149 HDL Cholesterol (test code = 33 mg/dL >39 L 2085-9) VLDL Cholesterol Renuka (test code = 12 mg/dL 5-40 95161-5) LDL Chol Calc (NIH) (test code = 122 mg/dL 0-99 H 88766-7) Comment: (test code = 64206-9) [facility] Description: Lipid [id number] 02:17:00 Test Item Value Reference Range Interpretation Comments Cholesterol, Total (test code = 167 mg/dL 325-962 8840-3) Triglycerides (test code = 2571-8) 60 mg/dL 0-149 HDL Cholesterol (test code = 33 mg/dL >39 L 2085-9) VLDL Cholesterol Renuka (test code = 12 mg/dL 5-40 78489-4) LDL Chol Calc (NIH) (test code = 122 mg/dL 0-99 H 01624-3) Comment: (test code = 02556-4) [facility] Description: Lipid [id number] 02:17:00 Test Item Value Reference Range Interpretation Comments Cholesterol, Total (test code = 167 mg/dL 948-481 7276-3) Triglycerides (test code = 2571-8) 60 mg/dL 0-149 HDL Cholesterol (test code = 33 mg/dL >39 L 2085-9) VLDL Cholesterol Renuka (test code = 12 mg/dL 5-40 98707-0) LDL Chol Calc (NIH) (test code = 122 mg/dL 0-99 H 51085-0) Comment: (test code = 14145-7) [facility] Description: Lipid [id number] 02:17:00 Test Item Value Reference Range Interpretation Comments Cholesterol, Total (test code = 167 mg/dL 718-514 3742-3) Triglycerides (test code = 2571-8) 60 mg/dL 0-149 HDL Cholesterol (test code = 33 mg/dL >39 L 2085-9) VLDL Cholesterol Renuka (test code = 12 mg/dL 5-40 04991-9) LDL Chol Calc (NIH) (test code = 122 mg/dL 0-99 H 64205-7) Comment: (test code = 41917-3) [facility] Description: Lipid [id number] 02:17:00 Test Item Value Reference Range Interpretation Comments Cholesterol, Total (test code = 167 mg/dL 860-144 2592-3) Triglycerides (test code = 2571-8) 60 mg/dL 0-149 HDL Cholesterol (test code = 33 mg/dL >39 L 2085-9) VLDL Cholesterol Renuka (test code = 12 mg/dL 5-40 00488-5) LDL Chol Calc (NIH) (test code = 122 mg/dL 0-99 H 78580-9) Comment: (test code = 01895-9) [facility] Description: Lipid [id number] 02:17:00 Test Item Value Reference Range Interpretation Comments Cholesterol, Total (test code = 167 mg/dL 102-101 3232-3) Triglycerides (test code = 2571-8) 60 mg/dL 0-149 HDL Cholesterol (test code = 33 mg/dL >39 L 2085-9) VLDL Cholesterol Renuka (test code = 12 mg/dL 5-40 56753-2) LDL Chol Calc (NIH) (test code = 122 mg/dL 0-99 H 15675-3) Comment: (test code = 27512-5) [facility] Description: Lipid [id number] 02:17:00 Test Item Value Reference Range Interpretation Comments Cholesterol, Total (test code = 167 mg/dL 466-339 2269-3) Triglycerides (test code = 2571-8) 60 mg/dL 0-149 HDL Cholesterol (test code = 33 mg/dL >39 L 2085-9) VLDL Cholesterol Renuka (test code = 12 mg/dL 5-40 52147-6) LDL Chol Calc (NIH) (test code = 122 mg/dL 0-99 H 39836-0) Comment: (test code = 14750-7) [facility] Description: Lipid [id number] 02:17:00 Test Item Value Reference Range Interpretation Comments Cholesterol, Total (test code = 167 mg/dL 737-509 3294-3) Triglycerides (test code = 2571-8) 60 mg/dL 0-149 HDL Cholesterol (test code = 33 mg/dL >39 L 2085-9) VLDL Cholesterol Renuka (test code = 12 mg/dL 5-40 77161-2) LDL Chol Calc (NIH) (test code = 122 mg/dL 0-99 H 07006-2) Comment: (test code = 43918-2) [facility] Description: Lipid [id number] 02:17:00 Test Item Value Reference Range Interpretation Comments Cholesterol, Total (test code = 167 mg/dL 712-771 4772-3) Triglycerides (test code = 2571-8) 60 mg/dL 0-149 HDL Cholesterol (test code = 33 mg/dL >39 L 5-9) VLDL Cholesterol Renuka (test code = 12 mg/dL 5-40 13736-8) LDL Chol Calc (NIH) (test code = 122 mg/dL 0-99 H 77714-5) Comment: (test code = 99701-5) [facility] Description: Lipid [id number] 02:17:00 Test Item Value Reference Range Interpretation Comments Cholesterol, Total (test code = 167 mg/dL 679-219 8797-3) Triglycerides (test code = 2571-8) 60 mg/dL 0-149 HDL Cholesterol (test code = 33 mg/dL >39 L 2084-9) VLDL Cholesterol Renuka (test code = 12 mg/dL 5-40 09653-5) LDL Chol Calc (NIH) (test code = 122 mg/dL 0-99 H 50813-7) Comment: (test code = 90859-7) [facility] Description: Comp. Metabolic Panel (14)2020-10-30 01:58:00 Test Item Value Reference Range Interpretation Comments Glucose (test code 50 mg/dL 65-99 L = 2345-7) BUN (test code = 52 mg/dL 6-24 H 3094-0) Creatinine (test 2.04 mg/dL 0.76-1.27 H code = 2160-0) eGFR If NonAfricn 38 >59 L Am (test code = mL/min/1.73 97690-4) eGFR If Africn Am 44 >59 L [facility] currently (test code = mL/min/1[place]73 [place] [address]-4) compliance with the current recommendations of the [employer] Kid[employer]. [place] will update re porting as new guidelin es are published from the NKF-ASN Task force.
<br/ >Perfor med by:
Lab [place] Kaur (HD)

BUN/Creatinine 25 9-20 H Ratio (test code = 3097-3) Sodium (test code = 142 mmol/L 117-031 0550-2) Potassium (test 4.1 mmol/L 3.5-5.2 code = 2823-3) Chloride (test code 103 mmol/L 96-106 = 2075-0) Carbon Dioxide, 27 mmol/L 20-29 Total (test code = 2027-) Calcium (test code 8.8 mg/dL 8.7-10.2 = 97801-0) Protein, Total 6.8 g/dL 6.0-8.5 (test code = 2885-2) Albumin (test code 3.3 g/dL 4.0-5.0 L = 1751-7) Globulin, Total 3.5 g/dL 1.5-4.5 (test code = 52580-7) A/G Ratio (test 0.9 1.2-2.2 L code = 1759-0) Bilirubin, Total 0.7 mg/dL 0.0-1.2 (test code = 1975-2) Alkaline 140 IU/L 48-121 H Phosphatase (test code = 6768-6) AST (SGOT) (test 14 IU/L 0-40 code = 1920-8) ALT (SGPT) (test 21 IU/L 0-44 code = 1742-6) [facility] Description: Comp. Metabolic Panel (14)2020-10-30 01:58:00 Test Item Value Reference Range Interpretation Comments Glucose (test code 50 mg/dL 65-99 L = 2345-7) BUN (test code = 52 mg/dL 6-24 H 3094-0) Creatinine (test 2.04 mg/dL 0.76-1.27 H code = 2160-0) eGFR If NonAfricn 38 >59 L Am (test code = mL/min/1.73 83294-5) eGFR If Africn Am 44 >59 L [facility] currently (test code = mL/min/1[place]73 [place] [address]-4) compliance with the current recommendations of the [employer] Kid[employer]. [place] will update re porting as new guidelin es are published from the NKF-ASN Task force.
<br/ >Perfor med by:
Lab [place] Kaur (HD)

BUN/Creatinine 25 9-20 H Ratio (test code = 3097-3) Sodium (test code = 142 mmol/L 128-451 9286-2) Potassium (test 4.1 mmol/L 3.5-5.2 code = 2823-3) Chloride (test code 103 mmol/L 96-106 = 2075-0) Carbon Dioxide, 27 mmol/L 20-29 Total (test code = 2027-9) Calcium (test code 8.8 mg/dL 8.7-10.2 = 00220-6) Protein, Total 6.8 g/dL 6.0-8.5 (test code = 2885-2) Albumin (test code 3.3 g/dL 4.0-5.0 L = 1751-7) Globulin, Total 3.5 g/dL 1.5-4.5 (test code = 82971-3) A/G Ratio (test 0.9 1.2-2.2 L code = 1759-0) Bilirubin, Total 0.7 mg/dL 0.0-1.2 (test code = 1975-2) Alkaline 140 IU/L 48-121 H Phosphatase (test code = 6768-6) AST (SGOT) (test 14 IU/L 0-40 code = 1920-8) ALT (SGPT) (test 21 IU/L 0-44 code = 1742-6) [facility] Description: Comp. Metabolic Panel (14)2020-10-30 01:58:00 Test Item Value Reference Range Interpretation Comments Glucose (test code 50 mg/dL 65-99 L = 2345-7) BUN (test code = 52 mg/dL 6-24 H 3094-0) Creatinine (test 2.04 mg/dL 0.76-1.27 H code = 2160-0) eGFR If NonAfricn 38 >59 L Am (test code = mL/min/1.73 75857-6) eGFR If Africn Am 44 >59 L [facility] currently (test code = mL/min/1.73 [place] [address]-5) compliance with the current recommendations of the National Kid[employer]. [place] will update re porting as new guidelin es are published from the NKF-ASN Task force.
<br/ >Perfor med by:
Lab [place] Kaur (HD)

BUN/Creatinine 25 9-20 H Ratio (test code = 3097-3) Sodium (test code = 142 mmol/L 013-418 7334-2) Potassium (test 4.1 mmol/L 3.5-5.2 code = 2823-3) Chloride (test code 103 mmol/L 96-106 = 2075-0) Carbon Dioxide, 27 mmol/L 20-29 Total (test code = 2027-) Calcium (test code 8.8 mg/dL 8.7-10.2 = 38306-2) Protein, Total 6.8 g/dL 6.0-8.5 (test code = 2885-2) Albumin (test code 3.3 g/dL 4.0-5.0 L = 1751-7) Globulin, Total 3.5 g/dL 1.5-4.5 (test code = 33771-2) A/G Ratio (test 0.9 1.2-2.2 L code = 1759-0) Bilirubin, Total 0.7 mg/dL 0.0-1.2 (test code = 1975-2) Alkaline 140 IU/L 48-121 H Phosphatase (test code = 6768-6) AST (SGOT) (test 14 IU/L 0-40 code = 1920-8) ALT (SGPT) (test 21 IU/L 0-44 code = 1742-6) [facility] Description: Comp. Metabolic Panel (14)2020-10-30 01:58:00 Test Item Value Reference Range Interpretation Comments Glucose (test code 50 mg/dL 65-99 L = 2345-7) BUN (test code = 52 mg/dL 6-24 H 3094-0) Creatinine (test 2.04 mg/dL 0.76-1.27 H code = 2160-0) eGFR If NonAfricn 38 >59 L Am (test code = mL/min/1.73 07178-2) eGFR If Africn Am 44 >59 L [facility] currently (test code = mL/min/1[place]73 [place] [address]-7) compliance with the current recommendations of the National Kid[employer] Foundation. [place] will update re porting as new guidelin es are published from the NKF-ASN Task force.
<br/ >Perfor med by:
Lab [place] (HD)

BUN/Creatinine 25 9-20 H Ratio (test code = 3097-3) Sodium (test code = 142 mmol/L 323-386 7103-2) Potassium (test 4.1 mmol/L 3.5-5.2 code = 2823-3) Chloride (test code 103 mmol/L 96-106 = 2075-0) Carbon Dioxide, 27 mmol/L 20-29 Total (test code = 2027-) Calcium (test code 8.8 mg/dL 8.7-10.2 = 27396-0) Protein, Total 6.8 g/dL 6.0-8.5 (test code = 2885-2) Albumin (test code 3.3 g/dL 4.0-5.0 L = 1751-7) Globulin, Total 3.5 g/dL 1.5-4.5 (test code = 29260-7) A/G Ratio (test 0.9 1.2-2.2 L code = 1759-0) Bilirubin, Total 0.7 mg/dL 0.0-1.2 (test code = 1975-2) Alkaline 140 IU/L 48-121 H Phosphatase (test code = 6768-6) AST (SGOT) (test 14 IU/L 0-40 code = 1920-8) ALT (SGPT) (test 21 IU/L 0-44 code = 1742-6) [facility] Description: Comp. Metabolic Panel (14)2020-10-30 01:58:00 Test Item Value Reference Range Interpretation Comments Glucose (test code 50 mg/dL 65-99 L = 2345-7) BUN (test code = 52 mg/dL 6-24 H 3094-0) Creatinine (test 2.04 mg/dL 0.76-1.27 H code = 2160-0) eGFR If NonAfricn 38 >59 L Am (test code = mL/min/1.73 33425-4) eGFR If Africn Am 44 >59 L [facility] currently (test code = mL/min/1.73 [place] [address]-9) compliance with the current recommendations of the National Kidney Foundation. [place] will update re porting as new guidelin es are published from the NKF-ASN Task force.
<br/ >Perfor med by:
Lab [place] Kaur (HD)

BUN/Creatinine 25 9-20 H Ratio (test code = 3097-3) Sodium (test code = 142 mmol/L 559-778 2261-2) Potassium (test 4.1 mmol/L 3.5-5.2 code = 2823-3) Chloride (test code 103 mmol/L 96-106 = 2075-0) Carbon Dioxide, 27 mmol/L 20-29 Total (test code = 2027-9) Calcium (test code 8.8 mg/dL 8.7-10.2 = 77184-6) Protein, Total 6.8 g/dL 6.0-8.5 (test code = 2885-2) Albumin (test code 3.3 g/dL 4.0-5.0 L = 1751-7) Globulin, Total 3.5 g/dL 1.5-4.5 (test code = 44830-2) A/G Ratio (test 0.9 1.2-2.2 L code = 1759-0) Bilirubin, Total 0.7 mg/dL 0.0-1.2 (test code = 1975-2) Alkaline 140 IU/L 48-121 H Phosphatase (test code = 6768-6) AST (SGOT) (test 14 IU/L 0-40 code = 1920-8) ALT (SGPT) (test 21 IU/L 0-44 code = 1742-6) [facility] Description: Comp. Metabolic Panel (14)2020-10-30 01:58:00 Test Item Value Reference Range Interpretation Comments Glucose (test code 50 mg/dL 65-99 L = 2345-7) BUN (test code = 52 mg/dL 6-24 H 3094-0) Creatinine (test 2.04 mg/dL 0.76-1.27 H code = 2160-0) eGFR If NonAfricn 38 >59 L Am (test code = mL/min/1.73 01941-2) eGFR If Africn Am 44 >59 L [facility] currently (test code = mL/min/1.73 [place] [address]-6) compliance with the current recommendations of the National Kid[employer] Foundation. [place] will update re porting as new guidelin es are published from the NKF-ASN Task force.
<br/ >Perfor med by:
Lab [place] Kaur (HD)

BUN/Creatinine 25 9-20 H Ratio (test code = 3097-3) Sodium (test code = 142 mmol/L 468-555 3150-2) Potassium (test 4.1 mmol/L 3.5-5.2 code = 2823-3) Chloride (test code 103 mmol/L 96-106 = 2075-0) Carbon Dioxide, 27 mmol/L 20-29 Total (test code = 2027-9) Calcium (test code 8.8 mg/dL 8.7-10.2 = 57628-7) Protein, Total 6.8 g/dL 6.0-8.5 (test code = 2885-2) Albumin (test code 3.3 g/dL 4.0-5.0 L = 1751-7) Globulin, Total 3.5 g/dL 1.5-4.5 (test code = 94285-0) A/G Ratio (test 0.9 1.2-2.2 L code = 1759-0) Bilirubin, Total 0.7 mg/dL 0.0-1.2 (test code = 1975-2) Alkaline 140 IU/L 48-121 H Phosphatase (test code = 6768-6) AST (SGOT) (test 14 IU/L 0-40 code = 1920-8) ALT (SGPT) (test 21 IU/L 0-44 code = 1742-6) [facility] Description: Comp. Metabolic Panel (14)2020-10-30 01:58:00 Test Item Value Reference Range Interpretation Comments Glucose (test code 50 mg/dL 65-99 L = 2345-7) BUN (test code = 52 mg/dL 6-24 H 3094-0) Creatinine (test 2.04 mg/dL 0.76-1.27 H code = 2160-0) eGFR If NonAfricn 38 >59 L Am (test code = mL/min/1.73 64328-6) eGFR If Africn Am 44 >59 L [facility] currently (test code = mL/min/1.73 [place] [address]-5) compliance with the current recommendations of the National Kidney Foundation. [place] will update re porting as new guidelin es are published from the NKF-ASN Task force.
<br/ >Perfor med by:
Lab [place] (HD)

BUN/Creatinine 25 9-20 H Ratio (test code = 3097-3) Sodium (test code = 142 mmol/L 816-148 1851-2) Potassium (test 4.1 mmol/L 3.5-5.2 code = 2823-3) Chloride (test code 103 mmol/L 96-106 = 2075-0) Carbon Dioxide, 27 mmol/L 20-29 Total (test code = 2027-9) Calcium (test code 8.8 mg/dL 8.7-10.2 = 83630-0) Protein, Total 6.8 g/dL 6.0-8.5 (test code = 2885-2) Albumin (test code 3.3 g/dL 4.0-5.0 L = 1751-7) Globulin, Total 3.5 g/dL 1.5-4.5 (test code = 16390-8) A/G Ratio (test 0.9 1.2-2.2 L code = 1759-0) Bilirubin, Total 0.7 mg/dL 0.0-1.2 (test code = 1975-2) Alkaline 140 IU/L 48-121 H Phosphatase (test code = 6768-6) AST (SGOT) (test 14 IU/L 0-40 code = 1920-8) ALT (SGPT) (test 21 IU/L 0-44 code = 1742-6) [facility] Description: Comp. Metabolic Panel (14)2020-10-30 01:58:00 Test Item Value Reference Range Interpretation Comments Glucose (test code 50 mg/dL 65-99 L = 2345-7) BUN (test code = 52 mg/dL 6-24 H 3094-0) Creatinine (test 2.04 mg/dL 0.76-1.27 H code = 2160-0) eGFR If NonAfricn 38 >59 L Am (test code = mL/min/1.73 12645-7) eGFR If Africn Am 44 >59 L [facility] currently (test code = mL/min/1.73 [place] [address]-0) compliance with the current recommendations of the [employer] Kid[employer]. [place] will update re porting as new guidelin es are published from the NKF-ASN Task force.
<br/ >Perfor med by:
Lab [place] Kaur (HD)

BUN/Creatinine 25 9-20 H Ratio (test code = 3097-3) Sodium (test code = 142 mmol/L 595-479 9670-2) Potassium (test 4.1 mmol/L 3.5-5.2 code = 2823-3) Chloride (test code 103 mmol/L 96-106 = 2075-0) Carbon Dioxide, 27 mmol/L 20-29 Total (test code = 2027-) Calcium (test code 8.8 mg/dL 8.7-10.2 = 96352-5) Protein, Total 6.8 g/dL 6.0-8.5 (test code = 2885-2) Albumin (test code 3.3 g/dL 4.0-5.0 L = 1751-7) Globulin, Total 3.5 g/dL 1.5-4.5 (test code = 04142-0) A/G Ratio (test 0.9 1.2-2.2 L code = 1759-0) Bilirubin, Total 0.7 mg/dL 0.0-1.2 (test code = 1975-2) Alkaline 140 IU/L 48-121 H Phosphatase (test code = 6768-6) AST (SGOT) (test 14 IU/L 0-40 code = 1920-8) ALT (SGPT) (test 21 IU/L 0-44 code = 1742-6) [facility] Description: Comp. Metabolic Panel (14)2020-10-30 01:58:00 Test Item Value Reference Range Interpretation Comments Glucose (test code 50 mg/dL 65-99 L = 2345-7) BUN (test code = 52 mg/dL 6-24 H 3094-0) Creatinine (test 2.04 mg/dL 0.76-1.27 H code = 2160-0) eGFR If NonAfricn 38 >59 L Am (test code = mL/min/1.73 79337-6) eGFR If Africn Am 44 >59 L [facility] currently (test code = mL/min/1[place]73 [place] [address]-4) compliance with the current recommendations of the [employer]. [facility] [place] will update re porting as new guidelin es are published from the NKF-ASN Task force.
<br/ >Perfor med by:
[facility] (HD)

BUN/Creatinine 25 9-20 H Ratio (test code = 3097-3) Sodium (test code = 142 mmol/L 073-876 0762-2) Potassium (test 4.1 mmol/L 3.5-5.2 code = 2823-3) Chloride (test code 103 mmol/L 96-106 = 2075-0) Carbon Dioxide, 27 mmol/L 20-29 Total (test code = 2027-9) Calcium (test code 8.8 mg/dL 8.7-10.2 = 78084-7) Protein, Total 6.8 g/dL 6.0-8.5 (test code = 2885-2) Albumin (test code 3.3 g/dL 4.0-5.0 L = 1751-7) Globulin, Total 3.5 g/dL 1.5-4.5 (test code = 43677-9) A/G Ratio (test 0.9 1.2-2.2 L code = 1759-0) Bilirubin, Total 0.7 mg/dL 0.0-1.2 (test code = 1975-2) Alkaline 140 IU/L 48-121 H Phosphatase (test code = 6768-6) AST (SGOT) (test 14 IU/L 0-40 code = 1920-8) ALT (SGPT) (test 21 IU/L 0-44 code = 1742-6) [facility] Description: Comp. Metabolic Panel (14)2020-10-30 01:58:00 Test Item Value Reference Range Interpretation Comments Glucose (test code 50 mg/dL 65-99 L = 2345-7) BUN (test code = 52 mg/dL 6-24 H 3094-0) Creatinine (test 2.04 mg/dL 0.76-1.27 H code = 2160-0) eGFR If NonAfricn 38 >59 L Am (test code = mL/min/1.73 35490-2) eGFR If Africn Am 44 >59 L [facility] currently (test code = mL/min/1.73 [place] [address]-1) compliance with the current recommendations of the [employer] Kid[employer]. [place] will update re porting as new guidelin es are published from the NKF-ASN Task force.
<br/ >Perfor med by:
Lab [place]aur (HD)

BUN/Creatinine 25 9-20 H Ratio (test code = 3097-3) Sodium (test code = 142 mmol/L 022-185 9680-2) Potassium (test 4.1 mmol/L 3.5-5.2 code = 2823-3) Chloride (test code 103 mmol/L 96-106 = 2075-0) Carbon Dioxide, 27 mmol/L 20-29 Total (test code = 2027-) Calcium (test code 8.8 mg/dL 8.7-10.2 = 18236-6) Protein, Total 6.8 g/dL 6.0-8.5 (test code = 2885-2) Albumin (test code 3.3 g/dL 4.0-5.0 L = 1751-7) Globulin, Total 3.5 g/dL 1.5-4.5 (test code = 03818-7) A/G Ratio (test 0.9 1.2-2.2 L code = 1759-0) Bilirubin, Total 0.7 mg/dL 0.0-1.2 (test code = 1975-2) Alkaline 140 IU/L 48-121 H Phosphatase (test code = 6768-6) AST (SGOT) (test 14 IU/L 0-40 code = 1920-8) ALT (SGPT) (test 21 IU/L 0-44 code = 1742-6) [facility] Description: Comp. Metabolic Panel (14)2020-10-30 01:58:00 Test Item Value Reference Range Interpretation Comments Glucose (test code 50 mg/dL 65-99 L = 2345-7) BUN (test code = 52 mg/dL 6-24 H 3094-0) Creatinine (test 2.04 mg/dL 0.76-1.27 H code = 2160-0) eGFR If NonAfricn 38 >59 L Am (test code = mL/min/1.73 85352-2) eGFR If Africn Am 44 >59 L [facility] currently (test code = mL/min/1[place]73 [place] [address]-7) compliance with the current recommendations of the [employer] Kid[employer]. [place] will update re porting as new guidelin es are published from the NKF-ASN Task force.
<br/ >Perfor med by:
[facility] [place]aur (HD)

BUN/Creatinine 25 9-20 H Ratio (test code = 3097-3) Sodium (test code = 142 mmol/L 079-104 5417-2) Potassium (test 4.1 mmol/L 3.5-5.2 code = 2823-3) Chloride (test code 103 mmol/L 96-106 = 2075-0) Carbon Dioxide, 27 mmol/L 20-29 Total (test code = 2027-) Calcium (test code 8.8 mg/dL 8.7-10.2 = 15338-9) Protein, Total 6.8 g/dL 6.0-8.5 (test code = 2885-2) Albumin (test code 3.3 g/dL 4.0-5.0 L = 1751-7) Globulin, Total 3.5 g/dL 1.5-4.5 (test code = 29627-2) A/G Ratio (test 0.9 1.2-2.2 L code = 1759-0) Bilirubin, Total 0.7 mg/dL 0.0-1.2 (test code = 1975-2) Alkaline 140 IU/L 48-121 H Phosphatase (test code = 6768-6) AST (SGOT) (test 14 IU/L 0-40 code = 1920-8) ALT (SGPT) (test 21 IU/L 0-44 code = 1742-6) [facility] Description: Comp. Metabolic Panel (142020-10-30 01:58:00 Test Item Value Reference Range Interpretation Comments Glucose (test code 50 mg/dL 65-99 L = 2345-7) BUN (test code = 52 mg/dL 6-24 H 3094-0) Creatinine (test 2.04 mg/dL 0.76-1.27 H code = 2160-0) eGFR If NonAfricn 38 >59 L Am (test code = mL/min/1.73 75991-1) eGFR If Africn Am 44 >59 L [facility] currently (test code = mL/min/1.73 [place] [address]-6) compliance with the current recommendations of the National Kid[employer] Foundation. [place] will update re porting as new guidelin es are published from the NKF-ASN Task force.
<br/ >Perfor med by:
[facility] [place] Kaur (HD)

BUN/Creatinine 25 9-20 H Ratio (test code = 3097-3) Sodium (test code = 142 mmol/L 525-390 1298-2) Potassium (test 4.1 mmol/L 3.5-5.2 code = 2823-3) Chloride (test code 103 mmol/L 96-106 = 2075-0) Carbon Dioxide, 27 mmol/L 20-29 Total (test code = 2027-9) Calcium (test code 8.8 mg/dL 8.7-10.2 = 69515-2) Protein, Total 6.8 g/dL 6.0-8.5 (test code = 2885-2) Albumin (test code 3.3 g/dL 4.0-5.0 L = 1751-7) Globulin, Total 3.5 g/dL 1.5-4.5 (test code = 34551-4) A/G Ratio (test 0.9 1.2-2.2 L code = 1759-0) Bilirubin, Total 0.7 mg/dL 0.0-1.2 (test code = 1975-2) Alkaline 140 IU/L 48-121 H Phosphatase (test code = 6768-6) AST (SGOT) (test 14 IU/L 0-40 code = 1920-8) ALT (SGPT) (test 21 IU/L 0-44 code = 1742-6) [facility] Description: Comp. Metabolic Panel (14)2020-10-30 01:58:00 Test Item Value Reference Range Interpretation Comments Glucose (test code 50 mg/dL 65-99 L = 2345-7) BUN (test code = 52 mg/dL 6-24 H 3094-0) Creatinine (test 2.04 mg/dL 0.76-1.27 H code = 2160-0) eGFR If NonAfricn 38 >59 L Am (test code = mL/min/1.73 88874-1) eGFR If Africn Am 44 >59 L [facility] currently (test code = mL/min/1.73 [place] 07[address]-6) compliance with the current recommendations of the [employer] Kid[employer]. [place] will update re porting as new guidelin es are published from the NKF-ASN Task force.
<br/ >Perfor med by:
[facility] [place] Kaur (HD)

BUN/Creatinine 25 9-20 H Ratio (test code = 3097-3) Sodium (test code = 142 mmol/L 828-089 7968-2) Potassium (test 4.1 mmol/L 3.5-5.2 code = 2823-3) Chloride (test code 103 mmol/L 96-106 = 2075-0) Carbon Dioxide, 27 mmol/L 20-29 Total (test code = 2027-9) Calcium (test code 8.8 mg/dL 8.7-10.2 = 11126-1) Protein, Total 6.8 g/dL 6.0-8.5 (test code = 2885-2) Albumin (test code 3.3 g/dL 4.0-5.0 L = 1751-7) Globulin, Total 3.5 g/dL 1.5-4.5 (test code = 39510-1) A/G Ratio (test 0.9 1.2-2.2 L code = 1759-0) Bilirubin, Total 0.7 mg/dL 0.0-1.2 (test code = 1975-2) Alkaline 140 IU/L 48-121 H Phosphatase (test code = 6768-6) AST (SGOT) (test 14 IU/L 0-40 code = 1920-8) ALT (SGPT) (test 21 IU/L 0-44 code = 1742-6) [facility] Description: Comp. Metabolic Panel (14)2020-10-30 01:58:00 Test Item Value Reference Range Interpretation Comments Glucose (test code 50 mg/dL 65-99 L = 2345-7) BUN (test code = 52 mg/dL 6-24 H 3094-0) Creatinine (test 2.04 mg/dL 0.76-1.27 H code = 2160-0) eGFR If NonAfricn 38 >59 L Am (test code = mL/min/1.73 28513-8) eGFR If Africn Am 44 >59 L [facility] currently (test code = mL/min/1.73 [place] [address]-2) compliance with the current recommendations of the National Kid[employer] Foundation. [place] will update re porting as new guidelin es are published from the NKF-ASN Task force.
<br/ >Perfor med by:
[facility] [place] Kaur (HD)

BUN/Creatinine 25 9-20 H Ratio (test code = 3097-3) Sodium (test code = 142 mmol/L 179-431 1367-2) Potassium (test 4.1 mmol/L 3.5-5.2 code = 2823-3) Chloride (test code 103 mmol/L 96-106 = 2075-0) Carbon Dioxide, 27 mmol/L 20-29 Total (test code = 2027-) Calcium (test code 8.8 mg/dL 8.7-10.2 = 20119-9) Protein, Total 6.8 g/dL 6.0-8.5 (test code = 2885-2) Albumin (test code 3.3 g/dL 4.0-5.0 L = 1751-7) Globulin, Total 3.5 g/dL 1.5-4.5 (test code = 53246-8) A/G Ratio (test 0.9 1.2-2.2 L code = 1759-0) Bilirubin, Total 0.7 mg/dL 0.0-1.2 (test code = 1975-2) Alkaline 140 IU/L 48-121 H Phosphatase (test code = 6768-6) AST (SGOT) (test 14 IU/L 0-40 code = 1920-8) ALT (SGPT) (test 21 IU/L 0-44 code = 1742-6) [facility] Description: Comp. Metabolic Panel (14)2020-10-30 01:58:00 Test Item Value Reference Range Interpretation Comments Glucose (test code 50 mg/dL 65-99 L = 2345-7) BUN (test code = 52 mg/dL 6-24 H 3094-0) Creatinine (test 2.04 mg/dL 0.76-1.27 H code = 2160-0) eGFR If NonAfricn 38 >59 L Am (test code = mL/min/1.73 24016-1) eGFR If Africn Am 44 >59 L [facility] currently (test code = mL/min/1.73 [place] [address]-4) compliance with the current recommendations of the National Kid[employer] Foundation. [place] will update re porting as new guidelin es are published from the NKF-ASN Task force.
<br/ >Perfor med by:
[facility] [place] (HD)

BUN/Creatinine 25 9-20 H Ratio (test code = 3097-3) Sodium (test code = 142 mmol/L 227-589 1610-2) Potassium (test 4.1 mmol/L 3.5-5.2 code = 2823-3) Chloride (test code 103 mmol/L 96-106 = 2075-0) Carbon Dioxide, 27 mmol/L 20-29 Total (test code = 2027-) Calcium (test code 8.8 mg/dL 8.7-10.2 = 35134-0) Protein, Total 6.8 g/dL 6.0-8.5 (test code = 2885-2) Albumin (test code 3.3 g/dL 4.0-5.0 L = 1751-7) Globulin, Total 3.5 g/dL 1.5-4.5 (test code = 19618-4) A/G Ratio (test 0.9 1.2-2.2 L code = 1759-0) Bilirubin, Total 0.7 mg/dL 0.0-1.2 (test code = 1975-2) Alkaline 140 IU/L 48-121 H Phosphatase (test code = 6768-6) AST (SGOT) (test 14 IU/L 0-40 code = 1920-8) ALT (SGPT) (test 21 IU/L 0-44 code = 1742-6) [facility] Description: Comp. Metabolic Panel (14)2020-10-30 01:58:00 Test Item Value Reference Range Interpretation Comments Glucose (test code 50 mg/dL 65-99 L = 2345-7) BUN (test code = 52 mg/dL 6-24 H 3094-0) Creatinine (test 2.04 mg/dL 0.76-1.27 H code = 2160-0) eGFR If NonAfricn 38 >59 L Am (test code = mL/min/1.73 06674-4) eGFR If Africn Am 44 >59 L [facility] currently (test code = mL/min/1.73 [place] [address]-1) compliance with the current recommendations of the National Kidney Foundation. [place] will update re porting as new guidelin es are published from the NKF-ASN Task force.
<br/ >Perfor med by:
[facility] [place] [facility]aur (HD)

BUN/Creatinine 25 9-20 H Ratio (test code = 3097-3) Sodium (test code = 142 mmol/L 444-674 3066-2) Potassium (test 4.1 mmol/L 3.5-5.2 code = 2823-3) Chloride (test code 103 mmol/L 96-106 = 2075-0) Carbon Dioxide, 27 mmol/L 20-29 Total (test code = 2027-) Calcium (test code 8.8 mg/dL 8.7-10.2 = 91274-5) Protein, Total 6.8 g/dL 6.0-8.5 (test code = 2885-2) Albumin (test code 3.3 g/dL 4.0-5.0 L = 1751-7) Globulin, Total 3.5 g/dL 1.5-4.5 (test code = 65194-3) A/G Ratio (test 0.9 1.2-2.2 L code = 1759-0) Bilirubin, Total 0.7 mg/dL 0.0-1.2 (test code = 1974-2) Alkaline 140 IU/L 48-121 H Phosphatase (test code = 6768-6) AST (SGOT) (test 14 IU/L 0-40 code = 1920-8) ALT (SGPT) (test 21 IU/L 0-44 code = 1742-6) [facility] Description: Comp. Metabolic Panel (14)2020-10-30 01:58:00 Test Item Value Reference Range Interpretation Comments Glucose (test code 50 mg/dL 65-99 L = 2345-7) BUN (test code = 52 mg/dL 6-24 H 3094-0) Creatinine (test 2.04 mg/dL 0.76-1.27 H code = 2160-0) eGFR If NonAfricn 38 >59 L Am (test code = mL/min/1.73 70255-3) eGFR If Africn Am 44 >59 L [facility] currently (test code = mL/min/1.73 [place] [address]-7) compliance with the current recommendations of the National Kidney Foundation. [place] will update re porting as new guidelin es are published from the NKF-ASN Task force.
<br/ >Perfor med by:
[facility] [place] [facility]aur (HD)

BUN/Creatinine 25 9-20 H Ratio (test code = 3097-3) Sodium (test code = 142 mmol/L 095-558 7918-2) Potassium (test 4.1 mmol/L 3.5-5.2 code = 2823-3) Chloride (test code 103 mmol/L 96-106 = 2075-0) Carbon Dioxide, 27 mmol/L 20-29 Total (test code = 2027-) Calcium (test code 8.8 mg/dL 8.7-10.2 = 89627-9) Protein, Total 6.8 g/dL 6.0-8.5 (test code = 2885-2) Albumin (test code 3.3 g/dL 4.0-5.0 L = 1751-7) Globulin, Total 3.5 g/dL 1.5-4.5 (test code = 82821-7) A/G Ratio (test 0.9 1.2-2.2 L code = 1759-0) Bilirubin, Total 0.7 mg/dL 0.0-1.2 (test code = 1975-2) Alkaline 140 IU/L 48-121 H Phosphatase (test code = 6768-6) AST (SGOT) (test 14 IU/L 0-40 code = 1920-8) ALT (SGPT) (test 21 IU/L 0-44 code = 1742-6) [facility] Description: Comp. Metabolic Panel (14)2020-10-30 01:58:00 Test Item Value Reference Range Interpretation Comments Glucose (test code 50 mg/dL 65-99 L = 2345-7) BUN (test code = 52 mg/dL 6-24 H 3094-0) Creatinine (test 2.04 mg/dL 0.76-1.27 H code = 2160-0) eGFR If NonAfricn 38 >59 L Am (test code = mL/min/1.73 70190-8) eGFR If Africn Am 44 >59 L [facility] currently (test code = mL/min/1.73 [place] [address]296-3) compliance with the current recommendations of the National Kid[employer] Foundation. [place] will update re porting as new guidelin es are published from the NKF-ASN Task force.
<br/ >Perfor med by:
[facility] [place] (HD)

BUN/Creatinine 25 9-20 H Ratio (test code = 3097-3) Sodium (test code = 142 mmol/L 405-921 0883-2) Potassium (test 4.1 mmol/L 3.5-5.2 code = 2823-3) Chloride (test code 103 mmol/L 96-106 = 5-0) Carbon Dioxide, 27 mmol/L 20-29 Total (test code = 2027-9) Calcium (test code 8.8 mg/dL 8.7-10.2 = 48575-6) Protein, Total 6.8 g/dL 6.0-8.5 (test code = 2885-2) Albumin (test code 3.3 g/dL 4.0-5.0 L = 1751-7) Globulin, Total 3.5 g/dL 1.5-4.5 (test code = 39624-8) A/G Ratio (test 0.9 1.2-2.2 L code = 1759-0) Bilirubin, Total 0.7 mg/dL 0.0-1.2 (test code = 1975-2) Alkaline 140 IU/L 48-121 H Phosphatase (test code = 6768-6) AST (SGOT) (test 14 IU/L 0-40 code = 1920-8) ALT (SGPT) (test 21 IU/L 0-44 code = 1742-6) [facility] Description: Comp. Metabolic Panel (14)2020-10-30 01:58:00 Test Item Value Reference Range Interpretation Comments Glucose (test code 50 mg/dL 65-99 L = 2345-7) BUN (test code = 52 mg/dL 6-24 H 3094-0) Creatinine (test 2.04 mg/dL 0.76-1.27 H code = 2160-0) eGFR If NonAfricn 38 >59 L Am (test code = mL/min/1.73 50097-2) eGFR If Africn Am 44 >59 L [facility] currently (test code = mL/min/1.73 [place] [address]-2) compliance with the current recommendations of the National Kid[employer] Foundation. [place] will update re porting as new guidelin es are published from the NKF-ASN Task force.
<br/ >Perfor med by:
[facility] [place] (HD)

BUN/Creatinine 25 9-20 H Ratio (test code = 3097-3) Sodium (test code = 142 mmol/L 059-521 6116-2) Potassium (test 4.1 mmol/L 3.5-5.2 code = 2823-3) Chloride (test code 103 mmol/L 96-106 = 2075-0) Carbon Dioxide, 27 mmol/L 20-29 Total (test code = 2027-9) Calcium (test code 8.8 mg/dL 8.7-10.2 = 87963-0) Protein, Total 6.8 g/dL 6.0-8.5 (test code = 2885-2) Albumin (test code 3.3 g/dL 4.0-5.0 L = 1751-7) Globulin, Total 3.5 g/dL 1.5-4.5 (test code = 07194-7) A/G Ratio (test 0.9 1.2-2.2 L code = 1759-0) Bilirubin, Total 0.7 mg/dL 0.0-1.2 (test code = 1975-2) Alkaline 140 IU/L 48-121 H Phosphatase (test code = 6768-6) AST (SGOT) (test 14 IU/L 0-40 code = 1920-8) ALT (SGPT) (test 21 IU/L 0-44 code = 1742-6) [facility] Description: Comp. Metabolic Panel (14)2020-10-30 01:58:00 Test Item Value Reference Range Interpretation Comments Glucose (test code 50 mg/dL 65-99 L = 2345-7) BUN (test code = 52 mg/dL 6-24 H 3094-0) Creatinine (test 2.04 mg/dL 0.76-1.27 H code = 2160-0) eGFR If NonAfricn 38 >59 L Am (test code = mL/min/1.73 71608-5) eGFR If Africn Am 44 >59 L [facility] currently (test code = mL/min/1.73 [place] [address]-7) compliance with the current recommendations of the [employer] Kid[employer] Foundation. [place] will update re porting as new guidelin es are published from the NKF-ASN Task force.
<br/ >Perfor med by:
[facility] [place] (HD)

BUN/Creatinine 25 9-20 H Ratio (test code = 3097-3) Sodium (test code = 142 mmol/L 957-859 9000-2) Potassium (test 4.1 mmol/L 3.5-5.2 code = 2823-3) Chloride (test code 103 mmol/L 96-106 = 2075-0) Carbon Dioxide, 27 mmol/L 20-29 Total (test code = 2027-) Calcium (test code 8.8 mg/dL 8.7-10.2 = 70180-7) Protein, Total 6.8 g/dL 6.0-8.5 (test code = 2885-2) Albumin (test code 3.3 g/dL 4.0-5.0 L = 1751-7) Globulin, Total 3.5 g/dL 1.5-4.5 (test code = 15235-5) A/G Ratio (test 0.9 1.2-2.2 L code = 1759-0) Bilirubin, Total 0.7 mg/dL 0.0-1.2 (test code = 1975-2) Alkaline 140 IU/L 48-121 H Phosphatase (test code = 6768-6) AST (SGOT) (test 14 IU/L 0-40 code = 1920-8) ALT (SGPT) (test 21 IU/L 0-44 code = 1742-6) [facility] HAND RIGHT COMPLETE 3 [id number] 11:29:03 [facility] : 1975 Sex: MRight hand, 3 viewsLocation code: [id number] HISTORY: Pain in second finger of right [...] Sylvester Case MD 10/29/2020 11:29 AM CDT [id number] OBTAINED CULTURE + GRAM [id number] 15:17:00 Test Item Value Reference Interpretation Comments [...] No organisms seen (BEAKER) (test code = 522777) SURGICALLY OBTAINED CULTURE + GRAM [id number] 14:58:00 Test Item Value Reference Interpretation Comments [...] No organisms seen (BEAKER) (test code = 054547) Tissue [id number] 09:25:00 Test Item Value Reference Range Interpretation Comments Case Report (test code Surgical Pathology = 104) Report Case: [id number] Authorizing Provider: Laura Nguyen MD Collected: 09/26/2020 07:56 AM Ordering Location: [address] Med/Surg Received: 09/26/2020 08:55 AM Pathologist: Hilda Mack MD Specimens: A) - Soft Tissue, Debridement, LEFT FOOT BONE CLEAN MARGIN. B) - Bone, LEFT FOOT 5TH METATARSAL HEAD. DIAGNOSIS (test code = v2jzaIBbHQLxo8erMFXrgY 3220) FuZzEwMzNcZnRuYmpcdWMx IHtccnRmMVxlcGljOTIwMl bzcrTdUOQrdUNgJ1Kinswv WBeuJE2xFB7msGgefQRjsD IzSQCwMzMiw5bya295wUIq e7ycRIQTcfytdCt7qHerB6 4lz4V7PnajY07ijBWuLTai bGFpblxmczIwIEEuIEJPTk VyBCjYMkPhEo8SRKDSJRJM IaDEFNAJVM5qVHWKU8MUQO czkDSsJEIzHV5iEh5YIRBB OkSyMbsLDz8HB28KNCEYLZ QTGIDHU1AXNLanZmHLLIWZ IlEdNg8RUUOSCFYNMR7ITW VPTVlFTElUSVNccGFyXHBh azSMShMNS51XQGLEXASNGT ASU3PjKQGPQA2GQTJHRUJP DUreYBLZFFgdVN0GOYHABT aBQlsrlCFrUNRkXW1wNXRP UHHgMC5QZYCDOg3BBMGyQ8 QYAZ6GJJUPWZFBIyHimWGq yXfidnSuQYpad2DrVYlqGI MkNL5pbZcrEGVqRE9eSAQd T7vidN2ohel3UzQkGUSjJu A8WTDeilE0Sme3LLOiVUew v5zaa2YsSEFqUHa5fZegZv LfLEQew3vcgiInPgAaGUYc FCPqVKRcdQJpG889b5xlh9 qcamVdtYC8QBZsNFD8JMbd yiIvbaE4WXqvaPBaUvP0DU tccmVkMFxncmVlbjBcYmx1 ZDLyP745JIT6sRbtj9maEB Z5TVFiHIGbVqJwVj5ehLZp Z311TMFpARCDJKJsaGs4WU ZnecZfqzValXGFb480P598 p6noXFFzzdLitNyTsnqtz2 evA689ZUMjaOIxcpJjSbKt VJUbsRKjtUG4GLMwZJ4vyd zeFUdgBJcuYVPtleC6USYv vPIwR3WxUNWiTX1uavzeAA D0QWhiOLYvSMA8IoUhFNCo g1Zsmsj4RdJgre5dmn78GZ O4e6EohDzxAWY4KBS2MsBu Bz1fjGAiHJHeLH3vTxZnqW NtVCLupd03dFxnXTgrNLX8 GTSaphKfg7Nne1sfRaUtuq TxQ6skP0WtXTPfASOfQPIh ZwTqtwPiy1Moe5FwkEStqG s4v0jlSOEaDGKyzYojv7ei TII2BTBzoMGvZ3msyH9uJA MnBQ7hpzfly1afJKxfVDab QVOtoQT1neC2BGJsuBOtD8 MblL1hZDXuPYnaZFArpwa9 KlEjZc8tqQQacDybMTdgDs twYWdlXHBnbmNvbnRccGdu ZGVjXHBsYWluXHBsYWluXG YwXGZzMjRccWxcbGFuZzEw MzNcaGljaFxmMVxkYmNoXG SvSEpsM1pxQnBcShViXlt2 RNGljPIbNWKzNvj7TZQjcN MfWUORbAmqqF5yRHAslTii kM4jgSJ8MPKpowCuhXJYeK 6yLLJMfR7lLnBgSKCgAhN9 LTcxNjNccGFyfX0= CPT Code(s) (test code d9edhJQzBOWnjVA2IeNqZC = 3357) Jnh3cod2XicTDlcAUfJCfm tZDrleDtvv15wMC2wQ63PA 9pLZQbUdW4JRKzbhU4Dap7 FURmFHSoeDFbO145w9sdq1 zbnuTjiSC0vSboEDJtVZXe YWluXGZzMjAgODgzMDUgWD RvTMd9BpDsAGtkWUUtjp8= CLINICAL HISTORY (test s0ropQPcTHPnhTE8MwCyAB code = 3356) Vsx2gom9KryXAqxVWsKXjk xZYmzfMegi88oJD0sO51NS 2eOYVeWnB6SETjdsT8Bjk8 MMTrUXVwsKIyN370x8caf5 dsppJmcXW3aChqFCVeIPSx HBgxAOJcJtJsSGhuRkZ5jQ HjoQosLGQbb6JpfGHfiDIy s722RELgr73xaBV6OKJdp8 c1fEIthFFdTUJijjBmJIpd eZI4voAhkNEwhV5dlM3sBE LmpKjaFnMyq61tjLOwj42o RYQlt0ZkD5gexZHvMYZcdt Nzw3YyRk4scYebfP9bvEFo vHWmXDEyzGymCKNzd7OaX2 UgXHBhcn0= SPECIMEN SOURCE (test l6gnrGUaEWTvgQX1HqZjFM code = 3377) Res8gyj1DftYXmfKEcUQhn cJJwfgXdzr00nPK5xW10IW 7dFYDiRfH6GVHapwY8Xpm8 RHAsUJEgrVBxD717c6pwg8 yutvWwiZH4eKctFIQzZCSf GAiwJSJaKrYtBN0oB21cdP F3mCIkjETxRGSdAjOvXUIa LD32HhJBIdBFs14gXMpuYK J9 GROSS DESCRIPTION (test j5amkXOeISYkfDI8QpTfHB code = 3366) Dnt9zei0OktDLxcNGfEQgb jGBxaqYlvj37nZL9uE02KG 4aLZSnCmS9TGYqnhA3Npr0 OPKaSJUdaZZdO874k7rql7 bkhnKcwAV2mSdiGHTtEEEa MXvtOQKkUwQkWR4pIFulNZ BtVLLmlBUaYHffLQYeG9Cz vbZxRQehZAJkC15iqMWkpg SpGYkufAzgRm1qdFDtsW4r aWPvWJejLVF1sXKyKNX6yw RcJIKtYL11QEhvHY17pZJs VOKhWUZfPSGqc88oiHV3pX KbnFQrWHYbQdJmGNLoUD42 Kj6xPOVyP73yn3hhxFQae3 TuDNWlPZqrEU85AAzfFB9h KEUnDHXrMPtwAE92YY2pVC Tpax79tUv3DOB4cQNwoJAl e7kiM4dyxYXeEw7xCYelnW JxpQLqWuIYkIFfrTV3WYGt uI1nEEJqEYS0GZWptZycqN DhNFKkSVpqqFZpC9U7lM9m PtFwZITvpgutCXNmNw0bHE hlIHNwZWNpbWVuIGlzIHJl P7JqloZaYOiqHYUhW72obE KyekVkUJhocCiuIv1mtVPo vO2tvOVfJHtaHFE5jZReQD K8lwPiEWIdGL34XFohLW01 oSQyPTSoVTIlHHTxUk6vTW HqOVz7NBDhoqEsj2OfDC7o SGPmQX52TJmeWUD3TGXfC3 3wGeFrM37vbkUfk3ReYx9g WYV6mUMlJCKsfHvzqPkjpe FrANG7aXupT8JsOADwr7Fb ZXBwG2Mbo16uKXOipfKwj8 HrkOo3rDUmZBnwABUfBGSk sMUkEERbQ5QuU0aiuWWcmF odrs4kVAJmF1LkNTMfaa7= MICROSCOPIC DESCRIPTION f1qslCDaYSTmqLV3BkLpJC (test code = 3371) Gvs6cpc9PdaKCjsWAwQQbq fAHxaaHged95eZW1uO06UB 8gWIRyIkB9OHHneeZ0Jbw1 WJAsSAQhmEOyB688f6tdd0 liavFzvWN2gIhfPFKgMPUr JCqqOZBlLsCfAY5PFmEYMH Uyg3BpJGHmIRmdRWS9 [address] [facility] performed at (test code Hospital, Department = 2777) of Pathology, [address] [place] [id number], Technical component was [facility]. aniyah's performed at (test code [facility], = 2778) Department of Pathology, [address] [place] [id number], Professional [address] [facility] was performed at ([facility], Department code = 2779) of Pathology, [address] [facility] [place] [address], [facility] [id number] 09:25:00 Test Item Value Reference Range Interpretation Comments Case Report (test code Surgical Pathology = 104) Report Case: [id number] Authorizing Provider: Laura Nguyen MD Collected: 09/26/2020 07:56 AM Ordering Location: [address] Med/Surg Received: 09/26/2020 08:55 AM Pathologist: Hilda Mack MD Specimens: A) - Soft Tissue, Debridement, LEFT FOOT BONE CLEAN MARGIN. B) - Bone, LEFT FOOT 5TH METATARSAL HEAD. DIAGNOSIS (test code = [id number] 3220) FuZzEwMzNcZnRuYmpcdWMx IHtccnRmMVxlcGljOTIwMl hlmgXzZMRlcTOeW2Woxkjz PGptYO6dFW7mnDvzzPDqdV CeNKWlEeOnj7zid847xOXl w5trNIATtwwhdAl0aWutK5 5ea0A2IvkmB21ctSNfNZtf bGFpblxmczIwIEEuIEJPTk OeJCkILpBrNv8ZXRKVHIDL YmURJPFZAO1oJUSMA0XJFI lxjRXfLPJcZL7aBl5IMZTI IjOrCifIWg4EW06OTAGTSD IBNGKFK2SSVIjaReHYDHIM JdNhJw9DBAHRUOUDDC7WUR VPTVlFTElUSVNccGFyXHBh gjANNjMVV61EEDNTABYMGR BHG1NbNZAGPP5XNJUJUHZW VRkuACUDYExiUG2XIVRLCX dJNbqedTQmKIAsAO1pXOAZ UBEbTC7VGVAOIs9EXODvT8 NJNB4VQVKUCHWTAvJlqQYr hRibelEdDUhze8BzBBuqPP WhAZ6tcGfiKHCyYF4oFSSq A7qhdG7kzij7UrWyIRKdAi H2XHMgzkI6Chq9SBCzZOpz n4qdg9BdYMHhIJb2dMmgDi NoTYMda2kcqiVlUkQkWCQd GLWvIWIwpDJnE904u3zcl2 ytgnDcmLX9TLYkSBW8ETwg ksFaqqG6RLnihJOwGeO4NV tccmVkMFxncmVlbjBcYmx1 ONOxT719MWU5mUooj1iqOZ P2GMNgGCDwSiEgCn5pxDMi T786ICOhQNZKGKQoiIl2AI IdfuSyjbOdoKUJy247G491 o0uxUORdjaVnuUxRyqkuh5 yjT688UHImfMFituZmZwVx RCJgqNMfoJU7NOIeYC4nip rbOXszEAlgAAQcpkJ4JSUx nEPfH7IfLZEaMS9zgewoSP Q2CWanLYKfLNN8QmOcDZSp t9Sxakh4PrEjxk6iar15AF Z6v6RdoWbrHZS7NOJ7FaUn Eg8cnFDgKXXpDD0tPnJobO SvFZKicd03uQpxCWzuHZF0 TIQmvsDis5Rqv5xkVsYdjl TkM3xkD7DbQXYrKVUmFVMq DeLpwhIca0Opj0VvwTTmuA j5r0vnYJMwKSCqiNbfq3dh ZWW6KANkzMOqE7emcH4oJJ DwID9nqanwh8yyLQnbGDrb KBGxpOO3ljZ5VJAuuUBsR6 DrcB2qWBWtBWzlREQxkpb5 TpDoSs1quJXouTvyMQcnGg twYWdlXHBnbmNvbnRccGdu ZGVjXHBsYWluXHBsYWluXG YwXGZzMjRccWxcbGFuZzEw MzNcaGljaFxmMVxkYmNoXG BzWYxsV0uqGtBgUlZxAuv3 BEAleUZxYDTsIam6FTYelM QcFYYOhPljcZ3mLOYapUxv qI4icWT9OEVaozZbkZMGbS 2zOTZQbF3eWkAjMDAjQwJ6 LTcxNjNccGFyfX0= CPT Code(s) (test code y0mhmTJnVHLylDR1QwKaIT = 3357) Tib8jdd8MjgYAdcFAxYVyf lAIqfzHfuh02jAH5bC95MH 2fHFYjTrG9IRAkotI6Hly5 UVOkNZLkxYMzO018b3oos1 cxemFluFK4lMznHWUsWXXf YWluXGZzMjAgODgzMDUgWD McOGx8KkJaEDgzJRHfut6= CLINICAL HISTORY (test c9ecxWZvBJJjeNQ5TdIvHW code = 3356) Suh6ndh9NvlNHtiNKeXIag gZCkunBajn01tHN9iQ40IN 7xDTEoFqY7PKEmmpP3Ybw8 UOPgIPVipEVlV943p8twk9 gphwJsjDQ3tCluJVPnAACl QCtxUDVaHyJlAYsoBmV4wR MruZwnEYMgl8FmfSUjeHUo a400NGJaf51vqRI4FMUue6 d7jNLwiTEwJBMvoxLsJCjm yFA5pzPwbBNgvG9csR4eEQ NacIgeBoFbv52rtDZit65u HNYbd6LcN1qqbDDfPFDsst Gla2WiOh2pvNmoiX3wjUHj iTYzPAHbtJvyNUTpt3RrC4 UgXHBhcn0= SPECIMEN SOURCE (test p4vavXYjMDVjsXR1EgMvRF code = 3377) Jrx8mql1SreTHlsUDjWWzi iDCpmfPpet08qEW4sE34BS 8fZDIeVrE7TUZizjF9Mmm8 QCAvMQVmsZMqW124k1azp8 vqfjTrnHL3yOxiMUFlMMFv DPvmYEVgDoRiXS5xF83ltA S6oYTcsSPdLZDuYvWdDZIm FP79LcXILbTGq21fFQfjFO J9 GROSS DESCRIPTION (test j7yjcIQmPYDsbQV0ZaRmJE code = 3366) Uib5csm2KgpOPntAIoAYbs uESilvYjmh06qYK3mP26QG 0gRJGkWcA1AOGhwpU3Fxh1 CISoWWVvfYVcH674l5tfe8 nbqjEvnNA6qHmcRNRyXUMu LWpuHAYnWpYyYN7pGPwtGH WjBACoxDVrPSbaJQKhU6Tm gkGnLNpnVZYuX26goRChcy AiPKsswNqdHv1mtFMncU7u zFYePSnyHJE9vNGiSEL7uc IqQRLaJW67VFrxXB71kTDi BJHoEAXaDHUgw76jxDU2tY GhqLIoAOKgLaYiRSTgAX22 Id5sHKKjX54tv4gqhWNxm0 UpFJYdGMlmJR34TMpjNX1d OWUyRWDbQEclNV11AC5pNL Bhpq83xLm6FJW3oMOdsHXr f6gwQ8porOKsCb2sMYxxhD OlnFBwQsYSzVLheMK4IROh vD9aKDBwHTC8XZUgkBfbdF QhKTZlRAkqdBAzP8J1bS2t FkTkFYDredfqNEQwWz8rHO hlIHNwZWNpbWVuIGlzIHJl Z4OlfsWpWRqmRZQrL61ecX OfmcYsDNqtyKfaUu2btUWs nQ5irPGoGXlhDVB7kKCsXQ G4prKbKQTqAF55GSdaUV16 yHWnWFNdLIOsHWFjJu4aCX ZdENs5SPBajsXcg1CmDS9u GEKsOW65ZTagAME7LUUhF9 6qKyCuK73ycaUkl6CtJp9h GRM2tJCtGNLnwQvfsKitxu FzMXZ2kTogJ3FhFKRao8Dl CZQrT6Xpa70uTIVjjpVpk8 HxoGs3tFHzTThpQZJzZNXy wAPiSVWlR5ClH0swrXNogO kexq7aTAFcX2WzWTZyqh1= MICROSCOPIC DESCRIPTION f1rtuMYyFLTuwWL8OsBcWI (test code = 3371) Ypo3jto0FztQYaiEZlJHlx wOBxofMbzo20sWG5zB25PD 4jINChUfB6ADOhdgN8Qmz4 DOVzTFUcjGIqE664c2dlo3 tgkeFuvPR2lQrlDGRvJWIb LBljPDOyKtYmQX3CZmFIIW Vrp8OrZFWgZNrcGVK2 Gross assessment was [facility] performed at (test code Hospital, Department = 2777) of Pathology, [address] [place] [address], Technical component was [facility]. Wallback's performed at ([facility], = 2778) Department of Pathology, [address] [place] [address], [address] [facility] was performed at ([facility], Department code = 2779) of Pathology, [address] [place] [address], [facility] [id number] 09:25:00 Test Item Value Reference Range Interpretation Comments Case Report (test code Surgical Pathology = 104) Report Case: [id number] Authorizing Provider: Laura Nguyen MD Collected: 09/26/2020 07:56 AM Ordering Location: [address] Med/Surg Received: 09/26/2020 08:55 AM Pathologist: Hilda Mack MD Specimens: A) - Soft Tissue, Debridement, LEFT FOOT BONE CLEAN MARGIN. B) - Bone, LEFT FOOT 5TH METATARSAL HEAD. DIAGNOSIS (test code = b1dcfHYgDWGxs9woVBKojH 3220) FuZzEwMzNcZnRuYmpcdWMx IHtccnRmMVxlcGljOTIwMl belmGoVLPxiCSdW9Aheciz QYfkLN8rBZ9pwAyigPScuL VmGMTsOhQxf9smf584aRZy f8etKYKMldfgdBj1kIckA7 8ou4Q9EqevZ09kjRPvAFef bGFpblxmczIwIEEuIEJPTk QhLEoYNdZmCj3YLYEFDHIW UmAKUJLAWA9fEWNHU1FWYZ gkbQHxKNYzHP5mId3OQWIQ XqWnFirTXl8BX47DHIMGBG VDUNOTC9HVODkjAbDBVFQT GlZsYb5XTQBAETKIEB6QBN VPTVlFTElUSVNccGFyXHBh udURIwZMC74TDZUKDTKPQO TPD3PwYLTVSL5UKDGJYKBV MCsoFZTUIJboOO7VTOSEHT kRAwfioOZqBKYqGN0yJBHM RORjSH3LCQQYOt9PEBWrL3 BAHH6IYQJKWMHEWjQdeXSc rHycyfGhEBxuu8YlRLslBO LiEJ1jaDreGPHzOA0jHUDp Q1pjwY0atpw6RmGwMXWpOr E7NCEnwhG9Ikp1CTRsALol k0rrx4ClCIMnVZb1mAhbXx KcHFSmt2ghljTkAfYlSBWl RMCaAAPfdLUtY757h4mom5 vallJjjSD0UYOgUHT8ELps umJrijH5KBnktKZxEcE8OF tccmVkMFxncmVlbjBcYmx1 LQGqV188MAE5bFbdx4wgCS R6YPHlIWGzFxLzSl2ftRAw L638ACMdFIJCIIPvqOv1NP CwsdSglzKbaBNRt477S862 e3anKLSxizBvpWmXgtkmv2 mcN038HZRwsDLcwpBaBzCn TBJfyTSoeJS9UTLpDT4cwb unBNzxPGjxOXDetzN8RXMc lTQgE9QgJMNjSD7dzqwsJP P1UOtxFEBrDOF6QjRiLOVl u2Zmfvt2VkCute7pen49CL F1k5EkdEspABO6REJ5KqZv Gm3nxWRqFKTbVR4eKoGxfD RuTFSvkh03lHmsUEiqAQS9 IGIypgEhg2Ftw6cfYkBusm PyU2fgV8MxFLDnILSxQAQj ZjVembBom1Oyo9MuwIBvuX i3g4diBWQgCBLzySfwi4ct AXH0ETEctPIiA0csiY6uKB UxZJ1pxybsy7ihKZxqVFfu PBJwoZZ0pnT0NYMlwGTlO3 JbpK3hOSCeIMhaHKObbkr7 AgHgXp1dkGEkbPbgJGopXu twYWdlXHBnbmNvbnRccGdu ZGVjXHBsYWluXHBsYWluXG YwXGZzMjRccWxcbGFuZzEw MzNcaGljaFxmMVxkYmNoXG NaHXhyP0ieTjQmRpTtJqx1 SMGrlQDnMUTiBxw6BVGhoG DeYXWJcJybmS4pMMLebFdn wR5tnIH1QFPtybIybLHHlY 7lKWCEzU9cOiFkYNQyCqD5 LTcxNjNccGFyfX0= CPT Code(s) (test code j0fzmVKtKSOveWD5AdJoLU = 3357) Dha2lqg9ImiWTfuACbTDba cYVhhfAoxn17nWV7mJ66ZD 2fCSFuHsB5YAUpqiY3Oxe4 VVOwBOJnlEPdM111a6iub2 bvcgUkaMB1mSubDHKtFWJo YWluXGZzMjAgODgzMDUgWD MqUWk1MpUuYGlcXNVige9= CLINICAL HISTORY (test f5bcpSJyZPLlmII2WdZuNC code = 3356) Ucb7imn9QqwCKffRVoTPqr hRQnprMlzx33bKF2wW57PG 9tSZAuZkK5QEMzbtQ1Kqc7 CSJnCNBmqHAqQ470d3ldo8 vjfeUjgKZ4gTbuPEWhQJDu WZelATHkBuRkCStgZoW2fK CfnXxbQULur0AhrGYnhEAq x217YQCtw74muIY8HJJfv8 c2tKAbhBAbGAAalzFiARys qLQ4bqRuoUSuoH2xuT8jWD LdwTqgYtZvv30pxXEpm97f AAKgw1KoP5ixlJNjHDBzch Pua9MbGz3xaMjjkI3rtJCi wKZgGHIooPppVFZxq2CxJ4 UgXHBhcn0= SPECIMEN SOURCE (test n2sugOKyLIAbrBH1KsTiOX code = 3377) Vpw5hsx9FzpCSydDVmFNcq fKVmggDaqd86nNX2wD08KS 9lOPPcNsO6RNDgdkO0Azs6 XJHeIABbeVIfL857s8jdt2 jnrrKvxMG9mArjDVEwDODg MNxeZIQrExPuFH8yY66xrE U2vVOevCTbUGWxNxHjXJLx MO79ByKOWnCRh93uBZlmEK J9 GROSS DESCRIPTION (test k6uxlAZhTPYmdTA6CrUlRK code = 3366) Sjv7rbj5RurMPvmAHmTYxa oOHdpxXkno56rYL9cF76CT 8mBAFeSkX4JZWjpiQ6Oho4 EHDvVEOllKAmU779f6gav5 hphzSvqUQ3yKarOURaNKJx GMtaUMHePqIoYE8nQMitRJ XnATDvkXHxDJjqZUDvV5Bs wqMhJSikORThP08ppKQotp BaMVptzRvlEb5roLAivM3d pRGnKEqhPAR8mIUhOQQ6wy PeUZUmYM84CHqdMQ73dTVy RDGyMDKmCFRji29xyOW1jQ LhvNYiWPIjSkCaIPEbTC61 Jg3mFCYjJ01ao5pztJYup8 VnCMEiTOcaOG44OAewOW1r XDVvDCYzYZyjKD32SP8zUA Btvy18bUf8FCW1pYSarLCz w1naA9jfwTSdBu7wGIcekW HqyTOeHeJTfLSyvJS4WFUh sU1hDRWpNIJ6RUHqmEoawV MfATAqFQexrDHtD4E1sA8f FaPiTKHbosfnHPZzNq0fYN hlIHNwZWNpbWVuIGlzIHJl U4TifzFaYGalNMJvV99qbH SxkbWyXXazlSezNe1mrQHg hC6lzFZpOCdhQTH5yFDtOK F1jsRmWOUaXG09LPqyEB36 gAEhJIRlYQYvHNNnGn3dIE XfHFu9XFJjrkEsg7UaNU3s MADmVM08SDaaILE0ZKPeP2 2jZeExH77esmKfb9LlZv2f KPW1eIUvKUEkuVpscBfgcu VuCXD4gJojY1BfEEAvp1Zl QNIyY6Zgo59bYHXcgoKue0 JbjCk6wKOlHXxrSDVdJWMp bJUxSJQnA7PfQ3wkwZJgcG lpbq4qCRCvW7XlXTOnxr6= MICROSCOPIC DESCRIPTION n6isySVfUWPogVM5JzJdLH (test code = 3371) Ktj1per2HnoJRhhMOfHFnr aCFuccSrsc80rLE4uS55VL 0zKRNmMaK7QVQbewW9Sxx7 UMZwLIDxfQBaI711l9bcr2 mdrkDxrPT2jAkzVJQaHHRc CConUCQpLpDqBW9AElGBVB Zev4EgBQEuZXzsWOE8 Gross assessment was [facility] performed at (test [facility], Department = 2777) of Pathology, [address] [place] [address], Technical component was [facility] performed at ([facility], = 2778) Department of Pathology, [address] [place] [address], Professional component [facility] was performed at ([facility], Department code = 2779) of Pathology, [address] [place] [address], [facility] [id number] 09:25:00 Test Item Value Reference Range Interpretation Comments Case Report (test code Surgical Pathology = 104) Report Case: [id number] Authorizing Provider: Laura Nguyen MD Collected: 09/26/2020 07:56 AM Ordering Location: [address] Med/Surg Received: 09/26/2020 08:55 AM Pathologist: Hilda Mack MD Specimens: A) - Soft Tissue, Debridement, LEFT FOOT BONE CLEAN MARGIN. B) - Bone, LEFT FOOT 5TH METATARSAL HEAD. DIAGNOSIS (test code = [id number] 3220) FuZzEwMzNcZnRuYmpcdWMx IHtccnRmMVxlcGljOTIwMl jxizAxSDTtnHWnG3Jodjuu WLtlKY0wOO5esIzktJAcdI ApLNPaDfElb0kin379oRPn y6vlKZEYhnllqVg4fLtjX9 1ju9L9PoxmX32hdRNoXJzh bGFpblxmczIwIEEuIEJPTk RpNMxFRwRhMc0ZRVKMFMNN RlXJUJADCO7dTYRAB4CCLK ambQSuHKMdLA9qLc2GDKFG ZiPzApfATl9RU15CXYNHST XXFCUGY6RBILwaVxXBAFYT SuEjAm2PAAOIUILCTE1NTD VPTVlFTElUSVNccGFyXHBh qlDUXqXUQ01ZKLMYUEEIAO YML7TaQKXSDG7HRODHZPBF DWktLBTKUPmiZD4OBCWXZS uYZukesVXmGQMuTT8jBLLN TWFyQB3IFXWWMz6YRTJpY1 SNMV2XAAKGQLTPVnDanVCx lDkkepXyBVhfb2FvDAviCN KmDJ0sxHbcDXFtUO4nWIOx J4waeH5lhjo1AdQyHCJjLc N8LIEnhfY7Hvt6JLLgAYqv u2rgo9UsVSJbCQt2xAkjCv JkDROzn1jefoNhRyFxFVFn LJDgGCGxmJWbK658f5nnq0 rdpvYkeRU7TBLnGCE0NAvr zmOchaQ8ZLgepCVrPoC8OE tccmVkMFxncmVlbjBcYmx1 HVHtR127HHR1lRuoy4tsGH T9OFWqAIHnEkFnFs9xgRBz V936JDYmPCBBCCVyrUf6FX XsloPqneErmNTYw228F969 r6keIYExosRnwAlQqwrvy6 pjS693JVUxaOWjlhEhDuIr XWPtcIWtqXB5NJRvTO1mah zbMXbrXVgaBRLlouS4VFBi vYMuR2MlEDYwFC0sjmjkKH A6STnqWVApCYV7NbTiOSMq x1Miyry1GnSfak4twv96HW H1r3ZpdObuPAC5ARJ9SaLt Cu5waYTgURUuUR1fBsTnnR RqKVDpqb41aWozBJgaHOB8 JYWrmeWsz8Gdm2ztVfAoec VfK2xuQ2VoYSVuIYPhKNYj KnEuctHyk3Jrg7YxlQHofZ f7u6vmDFMaOMPnfNkwt2pq RXS6LZJcmATnE8uexO3tFQ DxVW0habjdv4qaFZkwVUlk PWPzdKF1vlB7ETVcvKUcA8 FtmD1kGQWyBWbiHEQrjwb0 KyZnUq7msDPxiKpkGTqdDg twYWdlXHBnbmNvbnRccGdu ZGVjXHBsYWluXHBsYWluXG YwXGZzMjRccWxcbGFuZzEw MzNcaGljaFxmMVxkYmNoXG WmCYukD4qmNqXoDlIhKxy9 KQBilIOaOPHvWht0NEFfwA UzULHJbKkjdL2dHWCknKsg rV1raST0APQpadUuqQTMsK 7oHNNThH7mAkPbZCDuNpP2 LTcxNjNccGFyfX0= CPT Code(s) (test code g7cqbHQaLXYzmBA0MpQyUR = 3357) Ehp0gph3ZuxVEfxXSqWTxm zOXcpsQwyn78yVU9iN22SO 1bOMQjUcK7TRLtvbO4Ymi1 IHEbGXYshQByK368i5pks9 zxcuCiiWP8dVhpEFVkUICf YWluXGZzMjAgODgzMDUgWD OqKEm4InOaCWclANMzcz2= CLINICAL HISTORY (test e9yroGNjXSUsiTB6UxRnNA code = 3356) Xps9tde8AanHMtfDFwZUgm sFChurBfjn39aHM1qQ11GU 7fMUEcLwN0EEWmycE9Pbz6 WMRuVBYfuVMxF812d9xkk5 ebrbOyfIA0oTgyMXPqRSTd WVlxSZRpUgMuPVlxMhR0jC FrrLxiPINho1MetZYiaEVt y788NLIty45xtFB3GNPhq4 j3wOAxfLVkBDErdoXgPQrw rGJ2daGspARxgX5bhU2oRV BzmTisEpSdt81umZAun12x KXJyn0SeA5omuMTsBRFztp Kbk3DqTf2ahTnrcK4yuTXr pFBgDZCelNvzMQXgj2CkS7 UgXHBhcn0= SPECIMEN SOURCE (test v1hfoICpYFNdpXN9SdUeIA code = 3377) Bmn3cxf4UqvMQcpIHkLVzd zUQoyrTlpo45fJD6yX65HQ 9gGUYjNmY2VSMfppO1Vyj2 ZUWhBWAfbMNyF774u1qsz2 plxyVviYM7jLurPDUcTEJf JKoeIMPtDzMrMA0wP39qlM B4gEDrcQKeIGDpMzPnXPGz ZX58NwKBPpKEc21dQOqyIH J9 GROSS DESCRIPTION (test e0swjEIvUBVihEC0CzXfNI code = 3366) Rfb7niz4JydCNoyTOpBSgd lAZproKbes45sPU4gI76XM 1lAUJoClF9PNWhnlF7Whq1 WFZwVECpiZEkR671y7cnd9 ehueKopTJ3kMiePWPdWHBk CBvoLUVtLlHxNS8vCEvuBO TmDFRsjDDvINfeSHEgY9Xa fzGcAVnmOBJcF88dsAXxsu LtYRdcaQcnKz2jbQQxeR2j jDYyJYnzIKC3lSRzZFR4ei KkCBOnYF43EQyzVJ64tTBw YGSlVEEaROZmq24iaIS7xM BbrHYqBNTiYvOiHSSySD34 Ne7dJUMdB34gd5jxiJMkm8 NbSTMjHGhkJP13YFpmGU7y TNQzTTTqROiiLW56HY6nPT Mjbb83jZs4FVZ5oFWjgWYm u9amZ8zorHQoEu6dKUbdeS ZvcGBwHjKNlJCzuIQ4XFYg iI7oAFWgKTV5HUKkeYrlcL YxMTVhMNlygSWaK6W3mM8a RoMcXKZypvvgACXuTo1dHH hlIHNwZWNpbWVuIGlzIHJl H0YljzVhTZzkUTZzL32rcY NisyCiGCtyeUktXi5foNQt uR7reLHzATprTWB8kKGdZU Z9bpRqOCNmRA54UGitHY87 vATiODFxJOXpXUWfBn3dHX IjCTl4ROMsxqLhq1OlYZ7k NVEwMB49NEmuSTX2NCYiL8 5vEvBeI06fysQhu6SgDy1d WYY4pPDcTPUmtZsoyJwuzm OmPBS7cWnaY4NeACUbc3Xt CVWuH4Smt47uREEhwbDwr3 XhbQi1oIPpEKvoRZLkGWLi uBOlKAMsD4WoW1rhjWHrrN uplk8dLTUpO5JsIBNmiw6= MICROSCOPIC DESCRIPTION c1hrlXZqJIAabWX1HbXaNO (test code = 3371) Ggk0drc6ImzOShjXAaDExx sFGnyhInow90kAT8qO09IM 9nLWQlSqJ0EWQwsuY5Enc9 OQEmKQCbuMCjL268v4uvt3 drngJfvNK2kKxcMXSsKOTe FIcnAXIsQzTbBC3JGiWKFJ Ssn9XgXFFhVWzeLLM6 Gross assessment was [facility] performed at (test code [facility], Department = 2777) of Pathology, [facility] [place] [address], Technical component was [facility] performed at (test code [facility], = 2775) Department of Pathology, [address] [place] [address], Professional component [facility] performed at ([facility], Department code = 2779) of Pathology, [address] [place] [address], [id number] 09:25:00 Test Item Value Reference Range Interpretation Comments Case Report (test code Surgical Pathology = 104) Report Case: [id number] Authorizing Provider: Laura Nguyen MD Collected: 09/26/2020 07:56 AM Ordering Location: [address] Med/Surg Received: 09/26/2020 08:55 AM Pathologist: Hilda Mack MD Specimens: A) - Soft Tissue, Debridement, LEFT FOOT BONE CLEAN MARGIN. B) - Bone, LEFT FOOT 5TH METATARSAL HEAD. DIAGNOSIS (test code = g7leqOXpMNCet0wgHXSzvE 3220) FuZzEwMzNcZnRuYmpcdWMx IHtccnRmMVxlcGljOTIwMl soxrMvLELrbBFeY2Ftsiiv NDvuTU1oIW5xgZuykPSonY RwGOJvLeSpb2xcs278nUIk f1gkNABJzazocLz7jClwB5 3rh2M8BiyoM84bpOUiJUzs bGFpblxmczIwIEEuIEJPTk MfTXtILaAkGb0KBVZUSUXL CxIAFBANAN4oOENCP1GUNT xccOIhEPGjQE3qPc2CXPTQ CtThEqhSSy0YK93DRLOTHR SDTQLAE1DGEKesSyIPDGYO EzRgNa3NPEECYJNRUZ0MVF VPTVlFTElUSVNccGFyXHBh klTHEtBSY96UOCREBISCXU BXZ4ObAEMCKL0KWCODZNJS WMafHPMNUCxjBC6CIJIIHU oLBiqglWCeNGHhSX7qMQBY LPEvMB3UTWZRGg1ZRQYyD7 SBKX1KPELXWTIHKvNozRHl oHpqbeQqUFsag3CtTSrgDQ UrIG4btMdgRQZpLD6jDEPs U0kwfO4miph5LkHfBPVaXc Z1DUUlwbR8Snm4LYWjSHrj v1hgx1PoYQXxPJr9hZudAv OfYZJje9cbjxIgMgEyWELi ITDxXAOijQOgA130x5oqt3 fybjLgaSV0YMRjSSD6KDgq wrHattF1ABdpzBSgUvG1QS tccmVkMFxncmVlbjBcYmx1 LBEyP518WEX1hGhme0pbXY U4GZGoFOKyIkXfEn4ckRXb K898UASfEJKZIZQiaKp6CE VlauQbszNltZQSn130E286 n0lqKDBacqQcdKaNcxguy4 qgZ471PVAcvAUpdiPcRqZz IYAczTSusNQ6BKViMW7ykp ykLTtkNFcyOYXfbvF5GIEr pZGvL1PwYQXiHG8qkslmDN P4YOtaJVMxXTU6HrQyFTSh m5Idjtc1ZvMzqu9ifh33AT Z3z3QsrDscOQB7CFF2RtIx Tq3gtJNsFEQjOF3tFkPnxR LdEEUjjc43kWiiXCovBFC9 VHBccmFbc0Aua0bdLeDbgw CcP8ptZ3DnEKPkCNXvWPOf GyKkewFmy7Bbc4PaqCNaoA f4r2pfOVBzQRXyvUwib1og AKE4EHQjmHJaQ4pkpS4fTU ZuWX2zeljsx4ujJLlcFIhg UUPicWM1kaJ5PVOrrHZfA9 AykG2zOZXoURplESPjpaq6 ZoTzZd5wnGIrzTwpROesQf twYWdlXHBnbmNvbnRccGdu ZGVjXHBsYWluXHBsYWluXG YwXGZzMjRccWxcbGFuZzEw MzNcaGljaFxmMVxkYmNoXG FiMPzvC6uzRtZfEqIfVno1 VXEqcZGvHCFbOuo8UHTamN SdDMTAzVjrmV0jXRQjkEse yK7cwPO0SEQddvNjvKEWyY 5tQCNSwH8kHmDaGQDcEeP5 LTcxNjNccGFyfX0= CPT Code(s) (test code x9frdMVtKGGbuLU3ErIhMY = 3357) Pqx8kel8HhfTRncLIuXBui pSLrdwQeis27rWW4aJ59YP 3yDQJlJrQ9SCBmkmD1Uqy3 YPTnWYNgnKWfX311v8ecj4 zqbbOshOR1vPynUENyHCTa YWluXGZzMjAgODgzMDUgWD DmICf7ReTeNYylHEOira7= CLINICAL HISTORY (test j2akhKCcJKRqgIL9TePzOW code = 3356) Qgq4uzp8IjpQOuwZCpUOuk kGYraqPjou15oGV1iD71TF 8nNGXsSoQ3UXZhlqV0Ytp9 XHTdANBhhRWyG810p3zlj3 stkcWneSS5dUwxBRZpOANe FEypRUVdGjKoVAhfTnV4gR JduYmiHPIlr6ExtPMgjAWh w726LLQad25olIF8BKNvy1 c8oCHrrTFrRRJvstFgYIxx tIL7xrDpxTRdzT3avM7wFH OjcLzeQfVpy06xvGRmq35j BHVhi0BeH0zffRNzFIEsis Xzx3QwNs6ryPbltZ2xpJHm sHHfYVWykXpmNXGib5NsO7 UgXHBhcn0= SPECIMEN SOURCE (test g8lsdVJoHJYqvYG6KvRmWT code = 3377) Hvp1ikr6IbmTTbpTXxQLko pQBkbkQcsb07cAF6wG85OF 8aFAAcEhQ7OHDicyL8Aoc3 COTaIWPltFPhX075f6xnd6 rinmTiyHL9pEhtFVEpYYFx XTwzACFjUwDsNT7bW69reZ L3jXCldCGxWACfPjDnWLNg IJ00QyZQBmZBb60fYQpmAX J9 GROSS DESCRIPTION (test u4mwkFMeVNWheDN7LgAaPF code = 3366) Ndm9ieu9FttLKfhCRwMVgg nUJbagZpuo30wAU2fF75EK 9cEOPmLfS0SGMwwbJ3Qji1 LBZyHPUlgSCgX547l4kmz5 ncquEbhRG9mJvwKHVoFSCk UDorBUUhIdRfIR6qIDzmUU KyKCTgrBLzTJazCNTgS7Uh nuQrMMtjDJSnO14wmHNnty GiVFgjkVvhFd3ujTRrnL9d nMRnTIikUWB8tPBwYJU7vy JtKBDjQH20UTuiPX51wLQr PADpHRLbVYHee31oxEO3dV VsyESfNRKbJzLyYAVsTT01 Qi1zISNmN59ti0tofUCrg1 KmFMGiEVmaWI29PJtvND3e ZAXmEEGiDByfXD27GU3aUY Dlfc10sSb5RQS3eSOyePEr h2jpS6ehsMGlPt2uKWiqhU AoeYRdBcUJrGPdiDX8NJJy oO9dONArWGD6SXUhuPfdcD JoRWNyQHiljNCqO9B9tQ4f ZzBdIWHrpccgUWVkXy7fNV hlIHNwZWNpbWVuIGlzIHJl V1CvhgGjLWffBEMfX35dyE UvihNjKMlqjExuGv5raFLh wR3obZDcGZhiJDI3sXWcHU V3zvJaZAPkJY41QVhjOU01 mJEzGEYxOEGiRQWbBw3rPP EkDTn4CKLpkbXek0XmCE2q PFThMN67LYrbRPS2LBMgH8 2xVxFbF99wixMiu1PoYa0r PZN0hWQsYJXpdWsetAmfam KhCUV2hQghH3QmDETsv7Wc ZSNjJ2Bmm49lYAOgjnXpk6 MijJo2wMLeEJcfEYIxJUMr tTJrLQVuL6AtY4qwjSYddW pryb6pTWShK9LfAJLvau4= MICROSCOPIC DESCRIPTION w5rvxKIuBQXreLP2SnRvUT (test code = 3371) Xwa1wkm6MzkDRigROqOFpo aGDykxLqov24lKP9xW04YW 2vCNBtSiB1PDQtgxD2Eor3 AYOtMSXghODbB394u2gmj0 ohclLjsGQ4yOxrCBSiILAf FOmpGNGmPnTbBP4PRnLDUI Teo1ToUYWyOWruAZP3 Gross assessment was [facility] performed at (test code Hospital, Department = 2777) of Pathology, [address] [place] [address], Technical component was [facility] performed at ([facility], = 2778) Department of Pathology, [address] [place] [address], Professional component [facility] was performed at ([facility], Department code = 2779) of Pathology, [address] [place] [address], [facility] [id number] 09:25:00 Test Item Value Reference Range Interpretation Comments Case Report (test code Surgical Pathology = 104) Report Case: [id number] Authorizing Provider: Laura Nguyen MD Collected: 09/26/2020 07:56 AM Ordering Location: [address] Med/Surg Received: 09/26/2020 08:55 AM Pathologist: Hilda Mack MD Specimens: A) - Soft Tissue, Debridement, LEFT FOOT BONE CLEAN MARGIN. B) - Bone, LEFT FOOT 5TH METATARSAL HEAD. DIAGNOSIS (test code = [id number] 3220) FuZzEwMzNcZnRuYmpcdWMx IHtccnRmMVxlcGljOTIwMl zveiPnVIUoqTReD0Ftnuwg SAozDD8iDJ6jzPsojDXthV GfZXDfLnUhz8gyp581nDCy k1ywITOEwpiawEc4rJdpD4 2pc0A6DntdZ23pcROfILsw bGFpblxmczIwIEEuIEJPTk EkHNvZNbFjYt4VXEPHUPLM OcAESIVXSD9bWSPUI5GPOT kpuVQlPHFmYC0gEe4HDQSF YlFpIesWBv1IB66TJKHLQV GCFTIAY5VPVQltGwMNUKKH QhGwRh1EOYVOGGUZXO9CGT VPTVlFTElUSVNccGFyXHBh hpASHpUKC27NYDQROMNWTU PIY1AzTSCQOX2DQUQXVGVS TGisHIXSBOvfES2BSEZQDL gVCcxxiRDdIRHmQK0xQLPA LOBlHQ6KHTJECo3IBKXcT0 WGGN8NYRBFMXSSGxTtoKWm mXhaqsUuIYdwi1WuUXrkOB KoOS5aiQtpTQYzZZ4lIFKy J1ouwR5obji3JpBmFTWdMx S5RGZhjsO8Aca2KVEtRIdu v8nei5BhMGSaCAh7lIukSl ZdSFYkk6ncczRaBbQnZOGj ULTiIZMxrSLfV380h6zwl5 muhqAteXK9SYIyGKG0QXif qqAryeV2AArzjGOhLeF7MD tccmVkMFxncmVlbjBcYmx1 EMCsX451PTV5zPklv6bbXG F9REVqFDUkUhTfYs4neIMb X316EGMjCCXTNJHbcHs0AU YkpjTrfuGasPSXu479K513 b7kySQYzpeKogWrMqygmr2 pxF828TURgfXHjeaHxWlZo EXAdoMSbbSA6IUFuFQ9cmb qxWUwoFYdsWZQemzH9NTRs bIGpZ1NyXWCdLC6btuuoEM B3DWqqPQYlASI7RtOqYHMe v4Jkned3PsDuxj4cwr16VE L3n8LzxJtuXBK3QUK1QqWx Tw0whZEzESRsLS5fOzTurG MoYHNusp58lGrvIJqtNCG7 VXWffcBal4Xzl1uhHyJchd HeT5mfY8EwYIAbRYVfQDMy NgUskfKzn1Sys3XdbGDdpI d9e4gjOXUfVLNnmSmro3rx HTO6OLKloHYmR9sotR5sAC QySD2duyazh3zwILarWFuh OKQihPB4umH6ONNtsMFkH6 TciZ9aAZEoMUthVBHzput3 IxTaJc5csWBwrYmtWBspSg twYWdlXHBnbmNvbnRccGdu ZGVjXHBsYWluXHBsYWluXG YwXGZzMjRccWxcbGFuZzEw MzNcaGljaFxmMVxkYmNoXG UiMKjdD3lkRsNoYwGgOuy6 HANtoJNmMJFkAgo6XPYsiC DfSLCTrQbrxC1pKQIpmZkh tN9auQQ9SRHslzZbqYLVeB 4fCBWGnY4eIzQtWGWgEfI0 LTcxNjNccGFyfX0= CPT Code(s) (test code i3gxeCDcKDQlbQP7VdLfGR = 3357) Qth6vbz8SfxKVxeUWiTBdy dUXlpzGdep70iLI8rT28ZL 4eYZOcEwT0EKNfpjL1Ahw2 GTTnBNJmnIUiY824m5iwt7 jdvzHyxSO3bUpwQLNmHESf YWluXGZzMjAgODgzMDUgWD EcQHl2GdNwSIwtIIBcou0= CLINICAL HISTORY (test v3vevNCjBDWlkUU1VlYuVM code = 3356) Ova6fty9PrjPNfqZQpBDee wKNrbuTumy04hFI8aP83PD 5eUVHhDlA2WAGqgpD5Vfk6 EMCnKAVhoABaL233n2ros6 gpjjLokAM6mKwlTNTuFDCb LTonQYGuXqIaVFayEzK5kG TccYnpAPNbu4NwuLGitAPd h744LOYgo18cqSS9LMSmh1 v7cXDhrFSsLPKczkXuUHdt wXK1ynHjcPIytT3kdU8bVX GbhIteUsVdc26dgNAlm45r HILbc1IkI7licJQpMEMofk Kjd1InTm0ejTxchD8gfGIb eHQdZOWbfZmjIQIuv4MnG0 UgXHBhcn0= SPECIMEN SOURCE (test u0oomFSpMPBszZA6AvDaGO code = 3377) Dpp5coo6YqvMBonMPbUNkq zKEqqvCjfq22qBO2qD67OF 3wXOBnXeA4JMAevuB2Ohg6 WGBqIMXrzTJsH861e0wka9 eldjDdtIQ6wGytMTWtNUJr YCuxRTNdVxPlTY9xU50bqM Y4lOSxtBBhRAIlCiEjUTQq YY70EcHHWsHLh83tHAkxLI J9 GROSS DESCRIPTION (test i8tznXHyQQCngKE5LcMwKB code = 3366) Krc2prr9FrgPNbcFCfCYoi xGWhpaQcol43xUG0zG37SP 5fTEWtPwQ3IJQtnqD6Slh6 FUBxZNKvrVBwT877m9vea2 umzuVimZU2yHzqDMFhEUYl LLonPWPdVyShEY5dBZizCY LbULSnsTNpZWgrFPTiW4Jp doFzCFyxJEAvO14fwHHumj CrFYhonQlqRb9syGZwdV8n dYNgKQwnVPQ0iGWmPCU3gj JxCBTtHF44CQbsUZ97rTWq MMHcKYYiTSBnr71kkEX5pL IxqUXwNOUiMcLgLMKrRU33 Uk4mTZLoA34jl9npfZFwz8 QnAJBbMVqvCJ53HGryFW0z EYRxCNIoSZhsTG34YC7kRP Iuyi35vHg2QDK5pWCgmBLz y2stF4ebeSGyBx1yVUvpxT CwmVDwUnLAuLUvzRQ2XCUi bF9xRRPtCPY5MIMfwHwgaL LzIARgVJljyLHlK8J9rO8n GmQqKLDyeuitFJLqTp8yVO hlIHNwZWNpbWVuIGlzIHJl T9ZbpePpMRywAHInH76txP SaceYnXOzqbVhiPa9hpCIn iB7wmBRbFCqkCVF5kHSqMZ A1rxCsDOWpPK67YCmkHQ51 lJNzESAaLGDdEOVdFi9cJW YzMCl0CWVrvjUae8XkTZ5h LNFzBA74CJyyWBI4UNDiB1 1hXnElM73eofVjl5CmWe9j NVQ1jUQnIHEziKunnVxtty OwQSA2nCioM3YhGJOou3Dt SUDeC4Nys62eAGGiwnAsn6 BndKh1fQKeBPzcPTQwDEEa yNMxWGHhI0XqL1orfRBepR prxo6iSVMzA6DbUBEksy8= MICROSCOPIC DESCRIPTION c0shuAPgVSOnuNO4RmJaSE (test code = 3371) Olo2fnj9BmxFYasRSjPVbm iBHrkjBosp23fIQ6fP50BE 5gXDFeLuB2DBKiqeP8Ndw6 RYPtLHZlcYYnA814w4ltu4 thtvAnwEH1xPbyQAKoSATi JLbyOGDwLnScLV8WDhPKSX Hfr3YgRPAxNMivTBO3 Gross assessment was [facility] performed at (test [facility], Department = 2777) of Pathology, [address] [place] [address], Technical component was [facility] performed at ([facility], = 2778) Department of Pathology, [address] [place] [address], Professional component [facility] was performed at ([facility], Department code = 2779) of Pathology, [address] [place] [address], [facility] [id number] 09:25:00 Test Item Value Reference Range Interpretation Comments Case Report (test code Surgical Pathology = 104) Report Case: [id number] Authorizing Provider: Laura Nguyen MD Collected: 09/26/2020 07:56 AM Ordering Location: [address] Med/Surg Received: 09/26/2020 08:55 AM Pathologist: Hilda Mack MD Specimens: A) - Soft Tissue, Debridement, LEFT FOOT BONE CLEAN MARGIN. B) - Bone, LEFT FOOT 5TH METATARSAL HEAD. DIAGNOSIS (test code = [id number] 3220) FuZzEwMzNcZnRuYmpcdWMx IHtccnRmMVxlcGljOTIwMl qazgUiJUNrtKRrO7Gvwwsz GKhlVU0aCX6abQvlyKUuaE ZgUNVlLoTvv8zlk122xGWl x9jkPAYIksgoiYd7nMygB7 9vr0E0RzfwC72niEQbKPdi bGFpblxmczIwIEEuIEJPTk KqWXrCNcDfJn6QFJSYBYGZ CrGHPUJIJR6jHRUNN7ZKMS jnzNQtMYJbKW6yVh3LBPGL UhAzSdxLPw2LH22QNFJJFU YJPGPLS5XPPTbrUgDNYCIN FzZnGo6YAJLZEFOVKA0QWN VPTVlFTElUSVNccGFyXHBh rhWGLjELI81QESSCUCEWPZ PQN9LoLVGEJP8RCTCYORCU GNknLDAVHRnwGO1MEUDGKO zYVwmmqAAyKBCpLW0aQWOF LSTaNK0IJGWBYg4FIZUbQ3 ULUY8OCQGBODRXOyPnhFDs eKtlliPjEVkdm3KpOVxrKG QhFK5weQazPZKwEL6gYQFr W4rlkL5fnoq5LwJjEOUuHe Z2BOExwtC2Ujk9RMYkOIaa o4rzm2AyDMFzVSp1iXqaPr StFLDgl8qxoiWhIoBxRMCj LLYtTGVksHTxG992m9set2 xfugPcjTO5TUOjBWY5ZEez yeZfzcQ1MJcrlMXcLnH0TX tccmVkMFxncmVlbjBcYmx1 YVZbK270NAV4iMckz7jlKC H8SPWdUHRqZlOnGj6edPUu X956MDJqEQZIGSFflMl2CN VodlHhmqPdeEUOg210Q353 o8aqRXYrfkTlmZzIiqeqw3 xaN163QSTlbAHcsjClRtLg LLNraNGesKQ0TDEfNL6crl xxJPmiUUabTMUxcpJ6KGQf jSDqK2NoOHTgPS8dxhwkSR S6JAjdRWNhIRX0XqFrPRMk i7Oqapl2BxDlqu4vrf80SY N0t8QpuGkxUHW6TZA2CeGi Lr5jxGZwEJCgWU7gRoJtfZ LsSMTnos90rKhnCKnpOJB9 LUWmtrTso8Lkz1ldXgIhcj IlZ6lxO6MjGWCaMIGmQMPm RuMmouGrl5Kcu2PfbTGxbO b0x3vmLEFrGZSmqByga5dx XDX0SDVsrNGiD9pybJ0wUN EnJB0scvgfs1wsRJohFCrr KHHgrGY7mnP4ZZYhmAEmI8 IefN3pDTMgAOhpQLDydqx1 AjXrFg2vcECdxYefRMjgXv twYWdlXHBnbmNvbnRccGdu ZGVjXHBsYWluXHBsYWluXG YwXGZzMjRccWxcbGFuZzEw MzNcaGljaFxmMVxkYmNoXG WlODvwR2yqRgOjIeWuNpu6 CGEldIDpCZYmPhp5KKQqpD QpDEBKnMygxK2uXPUnoFpq cM7esGM6HULcmnUjaDVYiI 5eCVSYbH3xMjMeXGYoNqU8 LTcxNjNccGFyfX0= CPT Code(s) (test code z6htgUFaDUIxuPL2EmSfEB = 3357) Qol6gxk6LyjDJdbGKkNBwm gYTibsOwtp63oCD8cQ11JC 5eLNPePeY0ZMXzkaN1Tld8 PSYnWUPgxJYhZ784l9okf2 kkwqIzoKY7pJxsZJUdVKNl YWluXGZzMjAgODgzMDUgWD JqSQz6NtWlVMreVZMzfg4= CLINICAL HISTORY (test k5dluLVcONMgsWC3HoGoNA code = 3356) Dfi7lxn2ZycKXmlYOqMKpy yJQiwdJqlg97cDO5eB68SP 2mIRLpSmJ4EOEijzP8Uhy6 BSObXWAdbTUuN198d3jzt5 idhyCksIC4oCrwPCFxWRSy IQgcUDOkZiEoYXxdFdW8mE IkoIqtLRPuy4JvgCRssMZu f295VVDyv95ssGP0LLVjg5 n3wFXnaKErTUXcrmHrTYch dCA3ktKxoZOwkU9kmM2bMY HdvXxhQyImp57olQWur87a FKTwk2UkT9trfBGmXRYrgw Afx7DoSs1xhArqjH2zqXKk pGZeWKIurCojBSRqq9OmY4 UgXHBhcn0= SPECIMEN SOURCE (test p7vlmGNdZGPddOO9XwKcTF code = 3377) Rhb8sfy2RscAPdqTSvJLun qGEpsfGajz88lEG1vU65UK 4wIAEtFiH3XEAudtF9Ung6 GISbIBGsxKSwR102g8ttr3 cfjhXzvVV6xKzwDYYfYHJc QRuyVWSbAtGsFN4rM42muS E8lKPtrRZeDVMxIvJfTDWo VA04UmWDMdQJt18eAItcZC J9 GROSS DESCRIPTION (test v4uwyYUgZDAhfQS3HmNqUQ code = 3366) Geo1nuu3XywUJdaHSsKNyu aQDtimPsaf23rWQ6wQ88YB 5hAPOaFhJ6HSGrrsY4Rfp0 HUQhBAHutUGwQ438o0tzh5 isntAonQJ1tIajLBEwTLSz KZjnOQZkQsBmMG1dSQsaQJ LtPHWelKFkIQhsDFVrY9Ka wkOcADgvFJKeL02zcONwxh QiFLmdnGalKe4drZYblA3b gOQbYOngIGK4cGCoOUH7ig UwKNVwOJ32OBagYI73vLZs HTKtXUFtWSQcr74olLU4uF GsgGLlENDwWdWzLEYvUJ06 Qs4iPBHkZ07jh0taeKCwh5 LbAMOhXWbfVY45QAapMW9t ZVDaXQXjQWljIO16JQ0cSS Lhox35uXn6MRV2pKTmcBKm m7opL5kenXLuUy2oPKayhU GvfMArEqRDgGDntUU7SPMv cX9iBTDaEMS0NZHlpMzuwA IaKGBnEUhigFVzZ5C4gI4l ZzOkBVOdydotBLVmSs5pVU hlIHNwZWNpbWVuIGlzIHJl Y8YicqMdJCksKKUeZ87aiO CkjhPuQCgnxQhhRh8wyTGl aF1bzLNeTVmoKMI4mPTuGW U4zvJmQWTvHI02AYvgRA79 eSQuCZLoBIXfRVFgAc2nXJ ZaGMr4YDNfbzUnq3FdIN9w QSZeLJ38KEptDDH7NYEtR1 6wKdWoK52hnuTki9SeCw8g SNP4nIKmXKEpfCbnkXhiid DaUMX6hRzoH8InAUZfj4Hq EBWqR6Jdk07hVHIlkdZly1 JcgWo5vZTjPTljHZGiENNw lJTlDVPrV6GnS0izmGDicB foek6rCHWwB0ZvRSAvnv6= MICROSCOPIC DESCRIPTION r4gkjOHrGLUbmFD2KsOeBQ (test code = 3371) Uxj8xrl7ZvtLZcaIQgERuh hRAchtTtfn18xXI0jO11DQ 5uSCBgXlR9ZLOfkxR8Qmc6 VAEpYBAvvZYaE436c0gfm0 zjltZpdBE3yTbrHTErSRTs MRknZEFtPgVnYV2EQuMPXK Haa4JvRDEhYMnoNBY9 Gross assessment was [facility] performed at (test code Hospital, Department = 2770) of Pathology, [address] [place] [address], [place] [address], [facility] (test code [facility], = 2778) Department of Pathology, [address] [place] [address], Professional component [facility] was performed at ([facility], Department code = 2779) of Pathology, [address] [place] [address], [facility] [id number] 09:25:00Surgical Pathology Report Case: [id number] Authorizing Provider: Laura Nguyen MD Collected: 09/26/2020 07:56 AM Ordering Location: [address] Med/Surg Received: 09/26/2020 08:55 AM Pathologist: Hilda Mack MD Specimens: A) - Soft Tissue, Debridement, LEFT FOOT BONE CLEAN MARGIN. B) -Bone, LEFT FOOT 5TH METATARSAL HEAD. A. BONE, LEFT FOOT CLEAN MARGIN, BIOPSY: - BONE AND FIBROCONNECTIVE TISSUE, NEGATIVE FOR ACUTE OSTEOMYELITISB. BONE, LEFT FOOT 5TH METATARSAL HEAD, AMPUTATION: - ACUTE AND CHRONIC OSTEOMYELITIS Signing Pathologist Direct Phone Line: [phone] signed by Hilda Mack MD on 10/01/2020 at 9:25 [id number], [id number] ulcer of left foot associated with diabetes [...] submitted in B1 after decalcification. [place]/Shyanne-B. Performed. [facility], Department of Pathology, [address] [place] [address], [facility] [place] [place], [address] [place] [address], [facility], [address] [place] [address], HUJ-Glucose [id number] 12:31:00 Test Item Value Reference Range Interpretation Comments POC-Glucose Meter (test 178 mg/dL 70-110 H : No tified RN/MD: code = 1538) TESTED AT [place] [address] 478: Thermostat Maker/Techni cornelia ID = [id number] for BassZofia lemonare t Lab Interpretation (test Abnormal code = 09920-7) [facility] [id number] 12:31:00 Test Item Value Reference Range Interpretation Comments POC-Glucose Meter (test 178 mg/dL 70-110 H : No tified RN/MD: code = 1538) TESTED AT [place] [address] 478: Thermostat Maker/Techni cornelia ID = [id number] for Bassey, Margare t Lab Interpretation (test Abnormal code = 76736-2) [facility] [id number] 12:31:00 Test Item Value Reference Range Interpretation Comments POC-Glucose Meter (test 178 mg/dL 70-110 H : No tified RN/MD: code = 1538) TESTED AT [place] [address] 478: Thermostat Maker/Techni cornelia ID = [id number] for Bassey, Margare t Lab Interpretation (test Abnormal code = 19191-2) [facility] [id number] 12:31:00 Test Item Value Reference Range Interpretation Comments POC-Glucose Meter (test 178 mg/dL 70-110 H : No tified RN/MD: code = 1538) TESTED AT [place] [address] 478: Thermostat Maker/Techni cornelia ID = [id number] for Bassey, Margare t Lab Interpretation (test Abnormal code = 77391-8) [facility] [id number] 12:31:00 Test Item Value Reference Range Interpretation Comments POC-Glucose Meter (test 178 mg/dL 70-110 H : No tified RN/MD: code = 1538) TESTED AT [address] [address] 478: Thermostat Maker/Techni cornelia ID = [id number] for Desiree Salvatore carter Lab Interpretation (test Abnormal code = 44020-3) [facility]-Glucose [id number] 12:31:00 Test Item Value Reference Range Interpretation Comments POC-Glucose Meter (test 178 mg/dL 70-110 H : No tified RN/MD: code = 1538) TESTED AT [address] [address] 478: Thermostat Maker/Techni cornelia ID = [id number] for Desiree Salvatore carter Lab Interpretation (test Abnormal code = 75647-6) [facility]-Glucose [id number] 12:31:00 Test Item Value Reference Range Interpretation Comments POC-Glucose Meter (test 178 mg/dL 70-110 H : No tified RN/MD: code = 1538) TESTED AT [address] [address] 478: Thermostat Maker/Techni cornelia ID = [id number] for Desiree Savlatore carter Lab Interpretation (test Abnormal code = 41063-9) [facility]-GLUCOSE [id number] 12:31:00 Test Item Value Reference Range Interpretation Comments POC-GLUCOSE METER 178 mg/dL 70-110 H : Notified RN/MD: TESTED (BEAKER) (test code AT [address] = 1538) [facility] [address]: Thermostat Maker/Techni cornelia ID = [id number] for Cony Osborne Basic Metabolic [id number] 06:00:00 Test Item Value Reference Range Interpretation Comments Sodium (test code = 138 meq/L 523-006 0601-2) Potassium (test code 4.3 meq/L 3.6-5.5 = 2823-3) Chloride (test code 101 meq/L 98-106 = 2075-0) CO2 (test code = 31 meq/L 20-29 H 2028-9) BUN (test code = 54 mg/dL 10-26 H 3094-0) Creatinine (test 2.16 mg/dL 0.5-1.2 H code = 2160-0) Glucose (test code = 177 mg/dL 70-110 H 2345-7) Calcium (test code = 8.9 mg/dL 8.5-10.5 62677-9) EGFR (test code = 33 mL/min/1[place] [address]-5) m NOT ACCURATE CREATININE CLEARANCE IN PREDICTING GLOMERULAR FILTRATION RATE . ESTIMATED GFR I S NOT APPLICABLE FOR DIALYSIS PATIENTS. ISSA (test code = Thermostat Maker ID - ISSA) JBERNOperator ID - JBERNOperator ID - JBERNOperator ID - JBERNOperator ID - JBERNOperator ID - JBERNOperator ID - JBERNOperator ID - JBERNOperator ID - JBERNOperator ID - JBERN Lab Interpretation Abnormal (test code = 68344-6) [facility] Metabolic [id number] 06:00:00 Test Item Value Reference Range Interpretation Comments Sodium (test code = 138 meq/L 589-381 6734-2) Potassium (test code 4.3 meq/L 3.6-5.5 = 2823-3) Chloride (test code 101 meq/L 98-106 = 2075-0) CO2 (test code = 31 meq/L 20-29 H 2028-9) BUN (test code = 54 mg/dL 10-26 H 3094-0) Creatinine (test 2.16 mg/dL 0.5-1.2 H code = 2160-0) Glucose (test code = 177 mg/dL 70-110 H 2345-7) Calcium (test code = 8.9 mg/dL 8.5-10.5 78778-0) EGFR (test code = 33 mL/min/1.[place] [address]-4) m NOT ACCURATE CREATININE CLEARANCE IN PREDICTING GLOMERULAR FILTRATION RATE . ESTIMATED GFR I S NOT APPLICABLE FOR DIALYSIS PATIENTS. ISSA (test code = Thermostat Maker ID - ISSA) JBERNOperator ID - JBERNOperator ID - JBERNOperator ID - JBERNOperator ID - JBERNOperator ID - JBERNOperator ID - JBERNOperator ID - JBERNOperator ID - JBERNOperator ID - JBERN Lab Interpretation Abnormal (test code = 41811-8) [facility] Metabolic [id number] 06:00:00 Test Item Value Reference Range Interpretation Comments Sodium (test code = 138 meq/L 591-686 5250-2) Potassium (test code 4.3 meq/L 3.6-5.5 = 2823-3) Chloride (test code 101 meq/L 98-106 = 2075-0) CO2 (test code = 31 meq/L 20-29 H 2027-) BUN (test code = 54 mg/dL 10-26 H 3094-0) Creatinine (test 2.16 mg/dL 0.5-1.2 H code = 2160-0) Glucose (test code = 177 mg/dL 70-110 H 2345-7) Calcium (test code = 8.9 mg/dL 8.5-10.5 66312-9) EGFR (test code = 33 mL/min/1.[place] [address]-1) m NOT ACCURATE CREATININE CLEARANCE IN PREDICTING GLOMERULAR FILTRATION RATE . ESTIMATED GFR I S NOT APPLICABLE FOR DIALYSIS PATIENTS. ISSA (test code = Thermostat Maker ID - ISSA) JBERNOperator ID - JBERNOperator ID - JBERNOperator ID - JBERNOperator ID - JBERNOperator ID - JBERNOperator ID - JBERNOperator ID - JBERNOperator ID - JBERNOperator ID - JBERN Lab Interpretation Abnormal (test code = 33304-3) [facility] Metabolic [id number] 06:00:00 Test Item Value Reference Range Interpretation Comments Sodium (test code = 138 meq/L 609-833 1809-2) Potassium (test code 4.3 meq/L 3.6-5.5 = 2823-3) Chloride (test code 101 meq/L 98-106 = 2075-0) CO2 (test code = 31 meq/L 20-29 H 2027-9) BUN (test code = 54 mg/dL 10-26 H 3094-0) Creatinine (test 2.16 mg/dL 0.5-1.2 H code = 2160-0) Glucose (test code = 177 mg/dL 70-110 H 2345-7) Calcium (test code = 8.9 mg/dL 8.5-10.5 72571-0) EGFR (test code = 33 mL/min/1.[place] [address]-7) m NOT ACCURATE CREATININE CLEARANCE IN PREDICTING GLOMERULAR FILTRATION RATE . ESTIMATED GFR I S NOT APPLICABLE FOR DIALYSIS PATIENTS. ISSA (test code = Thermostat Maker ID - ISSA) JBERNOperator ID - JBERNOperator ID - JBERNOperator ID - JBERNOperator ID - JBERNOperator ID - JBERNOperator ID - JBERNOperator ID - JBERNOperator ID - JBERNOperator ID - JBERN Lab Interpretation Abnormal (test code = 02484-6) [facility] Metabolic [id number] 06:00:00 Test Item Value Reference Range Interpretation Comments Sodium (test code = 138 meq/L 890-423 2486-2) Potassium (test code 4.3 meq/L 3.6-5.5 = 2823-3) Chloride (test code 101 meq/L 98-106 = 2075-0) CO2 (test code = 31 meq/L 20-29 H 2028-9) BUN (test code = 54 mg/dL 10-26 H 3094-0) Creatinine (test 2.16 mg/dL 0.50-1.20 H code = 2160-0) Glucose (test code = 177 mg/dL 70-110 H 2345-7) Calcium (test code = 8.9 mg/dL 8.5-10.5 68057-9) EGFR (test code = 33 mL/min/1.[place] [address]-7) m NOT ACCURATE CREATININE CLEARANCE IN PREDICTING GLOMERULAR FILTRATION RATE . ESTIMATED GFR I S NOT APPLICABLE FOR DIALYSIS PATIENTS. ISSA (test code = Thermostat Maker ID - ISSA) JBERNOperator ID - JBERNOperator ID - JBERNOperator ID - JBERNOperator ID - JBERNOperator ID - JBERNOperator ID - JBERNOperator ID - JBERNOperator ID - JBERNOperator ID - JBERN Lab Interpretation Abnormal (test code = 74987-5) [facility] Metabolic [id number] 06:00:00 Test Item Value Reference Range Interpretation Comments Sodium (test code = 138 meq/L 857-876 7440-2) Potassium (test code 4.3 meq/L 3.6-5.5 = 2823-3) Chloride (test code 101 meq/L 98-106 = 2075-0) CO2 (test code = 31 meq/L 20-29 H 2027-9) BUN (test code = 54 mg/dL 10-26 H 3094-0) Creatinine (test 2.16 mg/dL 0.50-1.20 H code = 2160-0) Glucose (test code = 177 mg/dL 70-110 H 2345-7) Calcium (test code = 8.9 mg/dL 8.5-10.5 28285-2) EGFR (test code = 33 mL/min/1.[place] [address]-7) m NOT ACCURATE CREATININE CLEARANCE IN PREDICTING GLOMERULAR FILTRATION RATE . ESTIMATED GFR I S NOT APPLICABLE FOR DIALYSIS PATIENTS. ISSA (test code = Thermostat Maker ID - ISSA) JBERNOperator ID - JBERNOperator ID - JBERNOperator ID - JBERNOperator ID - JBERNOperator ID - JBERNOperator ID - JBERNOperator ID - JBERNOperator ID - JBERNOperator ID - JBERN Lab Interpretation Abnormal (test code = 61250-3) [facility] Metabolic [id number] 06:00:00 Test Item Value Reference Range Interpretation Comments Sodium (test code = 138 meq/L 710-553 0890-2) Potassium (test code 4.3 meq/L 3.6-5.5 = 2823-3) Chloride (test code 101 meq/L 98-106 = 2075-0) CO2 (test code = 31 meq/L 20-29 H 8-9) BUN (test code = 54 mg/dL 10-26 H 3094-0) Creatinine (test 2.16 mg/dL 0.50-1.20 H code = 2160-0) Glucose (test code = 177 mg/dL 70-110 H 2345-7) Calcium (test code = 8.9 mg/dL 8.5-10.5 53114-2) EGFR (test code = 33 mL/min/1.[place] [address]-0) m NOT ACCURATE CREATININE CLEARANCE IN PREDICTING GLOMERULAR FILTRATION RATE . ESTIMATED GFR I S NOT APPLICABLE FOR DIALYSIS PATIENTS. ISSA (test code = Thermostat Maker ID - ISSA) JBERNOperator ID - JBERNOperator ID - JBERNOperator ID - JBERNOperator ID - JBERNOperator ID - JBERNOperator ID - JBERNOperator ID - JBERNOperator ID - JBERNOperator ID - JBERN Lab Interpretation Abnormal (test code = 54345-9) [facility] METABOLIC [id number] 06:00:00 Test Item Value Reference Range Interpretation [...] S NOT APPLICABLE FOR DIALYSIS PATIEN TS. Thermostat Maker ID - JBERNOperator ID - JBERNOperator ID - JBERNOperator ID - JBERNOperator ID - JBERNOperator ID - JBERNOperator ID - JBERNOperator ID - JBERNOperator ID - JBERNOperator ID - [id number] 05:42:00 Test Item Value Reference Range Interpretation Comments Magnesium (test code = 2.2 mg/dL 1.5-3 54714-2) ISSA (test code = ISSA) Thermostat Maker ID - JBERNOperator ID - JBERNOperator ID - JBERNOperator ID - JBERN Lab Interpretation Normal (test code = 12157-0) [facility]2021-07-04 05:42:00 Test Item Value Reference Range Interpretation Comments Magnesium (test code = 2.2 mg/dL 1.5-3 20243-8) ISSA (test code = ISSA) Thermostat Maker ID - JBERNOperator ID - JBERNOperator ID - JBERNOperator ID - JBERN Lab Interpretation Normal (test code = 01411-8) [facility]2021-07-04 05:42:00 Test Item Value Reference Range Interpretation Comments Magnesium (test code = 2.2 mg/dL 1.5-3 80548-5) ISSA (test code = ISSA) Thermostat Maker ID - JBERNOperator ID - JBERNOperator ID - JBERNOperator ID - JBERN Lab Interpretation Normal (test code = 45923-3) [facility]2021-07-04 05:42:00 Test Item Value Reference Range Interpretation Comments Magnesium (test code = 2.2 mg/dL 1.5-3 94413-6) ISSA (test code = ISSA) Thermostat Maker ID - JBERNOperator ID - JBERNOperator ID - JBERNOperator ID - JBERN Lab Interpretation Normal (test code = 89686-3) [facility]2021-07-04 05:42:00 Test Item Value Reference Range Interpretation Comments Magnesium (test code = 2.2 mg/dL 1.5-3.0 62108-0) ISSA (test code = ISSA) Thermostat Maker ID - JBERNOperator ID - JBERNOperator ID - JBERNOperator ID - JBERN Lab Interpretation Normal (test code = 00291-3) [facility]2021-07-04 05:42:00 Test Item Value Reference Range Interpretation Comments Magnesium (test code = 2.2 mg/dL 1.5-3.0 01306-8) ISSA (test code = ISSA) Thermostat Maker ID - JBERNOperator ID - JBERNOperator ID - JBERNOperator ID - JBERN Lab Interpretation Normal (test code = 17041-5) [facility] 05:42:00 Test Item Value Reference Range Interpretation Comments Magnesium (test code = 2.2 mg/dL 1.5-3.0 73825-0) ISSA (test code = ISSA) Thermostat Maker ID - JBERNOperator ID - JBERNOperator ID - JBERNOperator ID - JBERN Lab Interpretation Normal (test code = 87789-6) [facility] 05:[facility] Test Item Value Reference Range Interpretation Comments MAGNESIUM (BEAKER) (test code = 2.2 mg/dL 1.5-3.0 627) Thermostat Maker ID - JBERNOperator ID - JBERNOperator ID - JBERNOperator ID - JBERNCBC with platelet count + automated [id number] 05:17:00 Test Item Value Reference Range Interpretation Comments WBC (test code = 6690-2) 7.6 See_Comment [A utomated message] The system [employer] generated this result transmitted ref erence range: 4.0 - 10 .0 K/L. The refe rence range was not u sed to interpret this result as normal/abnor mal. RBC (test code = 789-8) 3.54 See_Comment L [Au tomated message] The system [employer] generated this result transmitted ref erence range: 4.20 - 5 .80 M/L. The refe rence range was not u sed to interpret this result as normal/abnor mal. MCHC (test code = 786-4) 31.0 See_Comment L [A utomated message] The system [employer] generated this result transmitted ref erence range: [...] See_Comment [Aut omated message] 777-3) The system [employer] generated this result transmitted ref erence range: 150 - 43 0 K/CU MM. The referen ce range was not u sed to interpret this result as normal/abnor mal. MPV (test code = 11.1 fL 6-11.5 45827-8) nRBC (test code = 413) 0 See_Comment [Aut omated message] The system [employer] generated this result transmitted ref erence range: [...] See_Comment [Aut omated message] 670) The system [employer] generated this result transmitted ref erence range: 1.80 - 8 .00 K/L. The refe rence range was not u sed to interpret this result as normal/abnor mal. # Lymphs (test code = 0.97 See_Comment L [Auto mated message] 414) The system [employer] generated this result transmitted ref erence range: 1.48 - 4 .50 K/L. The refe rence range was not u sed to interpret this result as normal/abnor mal. # Monos (test code = 0.74 See_Comment [Autom ated message] 415) The system [employer] generated this result transmitted ref erence range: 0.00 - 1 .30 K/L. The refe rence range was not u sed to interpret this result as normal/abnor mal. # Eos (test code = 416) 0.21 See_Comment [Au tomated message] The system [employer] generated this result transmitted ref erence range: 0.00 - 0 .50 K/L. The refe rence range was not u sed to interpret this result as normal/abnor mal. # Baso (test code = 417) 0.05 See_Comment [A utomated message] The system [employer] generated this result transmitted ref erence range: 0.00 - 0 .20 K/L. The refe rence range was not u sed to interpret this result as normal/abnor mal. Immature 1 % 0-0 H Granulocytes-Relative (test code = 2801) Lab Interpretation (test Abnormal code = 08954-0) [facility] with platelet count + automated [id number] 05:17:00 Test Item Value Reference Range Interpretation Comments WBC (test code = 6690-2) 7.6 See_Comment [A utomated message] The system [employer] generated this result transmitted ref erence range: 4.0 - 10 .0 K/L. The refe rence range was not u sed to interpret this result as normal/abnor mal. RBC (test code = 789-8) 3.54 See_Comment L [Au tomated message] The system [employer] generated this result transmitted ref erence range: 4.20 - 5 .80 M/L. The refe rence range was not u sed to interpret this result as normal/abnor mal. MCHC (test code = 786-4) 31.0 See_Comment L [A utomated message] The system [employer] generated this result transmitted ref erence range: [...] See_Comment [Aut omated message] 777-3) The system [employer] generated this result transmitted ref erence range: 150 - 43 0 K/CU MM. The referen ce range was not u sed to interpret this result as normal/abnor mal. MPV (test code = 11.1 fL 6-11.5 88117-4) nRBC (test code = 413) 0 See_Comment [Aut omated message] The system [employer] generated this result transmitted ref erence range: [...] See_Comment [Aut omated message] 670) The system [employer] generated this result transmitted ref erence range: 1.80 - 8 .00 K/L. The refe rence range was not u sed to interpret this result as normal/abnor mal. # Lymphs (test code = 0.97 See_Comment L [Auto mated message] 414) The system [employer] generated this result transmitted ref erence range: 1.48 - 4 .50 K/L. The refe rence range was not u sed to interpret this result as normal/abnor mal. # Monos (test code = 0.74 See_Comment [Autom ated message] 415) The system [employer] generated this result transmitted ref erence range: 0.00 - 1 .30 K/L. The refe rence range was not u sed to interpret this result as normal/abnor mal. # Eos (test code = 416) 0.21 See_Comment [Au tomated message] The system [employer] generated this result transmitted ref erence range: 0.00 - 0 .50 K/L. The refe rence range was not u sed to interpret this result as normal/abnor mal. # Baso (test code = 417) 0.05 See_Comment [A utomated message] The system [employer] generated this result transmitted ref erence range: 0.00 - 0 .20 K/L. The refe rence range was not u sed to interpret this result as normal/abnor mal. Immature 1 % 0-0 H Granulocytes-Relative (test code = 2801) Lab Interpretation (test Abnormal code = 41813-2) [facility] with platelet count + automated [id number] 05:17:00 Test Item Value Reference Range Interpretation Comments WBC (test code = 6690-2) 7.6 See_Comment [A utomated message] The system [employer] generated this result transmitted ref erence range: 4.0 - 10 .0 K/L. The refe rence range was not u sed to interpret this result as normal/abnor mal. RBC (test code = 789-8) 3.54 See_Comment L [Au tomated message] The system [employer] generated this result transmitted ref erence range: 4.20 - 5 .80 M/L. The refe rence range was not u sed to interpret this result as normal/abnor mal. MCHC (test code = 786-4) 31.0 See_Comment L [A utomated message] The system [employer] generated this result transmitted ref erence range: [...] See_Comment [Aut omated message] 777-3) The system [employer] generated this result transmitted ref erence range: 150 - 43 0 K/CU MM. The referen ce range was not u sed to interpret this result as normal/abnor mal. MPV (test code = 11.1 fL 6-11.5 29106-1) nRBC (test code = 413) 0 See_Comment [Aut omated message] The system [employer] generated this result transmitted ref erence range: [...] See_Comment [Aut omated message] 670) The system [employer] generated this result transmitted ref erence range: 1.80 - 8 .00 K/L. The refe rence range was not u sed to interpret this result as normal/abnor mal. # Lymphs (test code = 0.97 See_Comment L [Auto mated message] 414) The system [employer] generated this result transmitted ref erence range: 1.48 - 4 .50 K/L. The refe rence range was not u sed to interpret this result as normal/abnor mal. # Monos (test code = 0.74 See_Comment [Autom ated message] 415) The system [employer] generated this result transmitted ref erence range: 0.00 - 1 .30 K/L. The refe rence range was not u sed to interpret this result as normal/abnor mal. # Eos (test code = 416) 0.21 See_Comment [Au tomated message] The system [employer] generated this result transmitted ref erence range: 0.00 - 0 .50 K/L. The refe rence range was not u sed to interpret this result as normal/abnor mal. # Baso (test code = 417) 0.05 See_Comment [A utomated message] The system [employer] generated this result transmitted ref erence range: 0.00 - 0 .20 K/L. The refe rence range was not u sed to interpret this result as normal/abnor mal. Immature 1 % 0-0 H Granulocytes-Relative (test code = 2801) Lab Interpretation (test Abnormal code = 58066-2) [facility] [id number] 05:17:00 Test Item Value Reference Range Interpretation Comments WBC (test code = 6690-2) 7.6 See_Comment [A utomated message] The system [employer] generated this result transmitted ref erence range: 4.0 - 10 .0 K/L. The refe rence range was not u sed to interpret this result as normal/abnor mal. RBC (test code = 789-8) 3.54 See_Comment L [Au tomated message] The system [employer] generated this result transmitted ref erence range: 4.20 - 5 .80 M/L. The refe rence range was not u sed to interpret this result as normal/abnor mal. MCHC (test code = 786-4) 31.0 See_Comment L [A utomated message] The system [employer] generated this result transmitted ref erence range: [...] See_Comment [Aut omated message] 777-3) The system [employer] generated this result transmitted ref erence range: 150 - 43 0 K/CU MM. The referen ce range was not u sed to interpret this result as normal/abnor mal. MPV (test code = 11.1 fL 6-11.5 89618-0) nRBC (test code = 413) 0 See_Comment [Aut omated message] The system [employer] generated this result transmitted ref erence range: [...] See_Comment [Aut omated message] 670) The system [employer] generated this result transmitted ref erence range: 1.80 - 8 .00 K/L. The refe rence range was not u sed to interpret this result as normal/abnor mal. # Lymphs (test code = 0.97 See_Comment L [Auto mated message] 414) The system [employer] generated this result transmitted ref erence range: 1.48 - 4 .50 K/L. The refe rence range was not u sed to interpret this result as normal/abnor mal. # Monos (test code = 0.74 See_Comment [Autom ated message] 415) The system [employer] generated this result transmitted ref erence range: 0.00 - 1 .30 K/L. The refe rence range was not u sed to interpret this result as normal/abnor mal. # Eos (test code = 416) 0.21 See_Comment [Au tomated message] The system [employer] generated this result transmitted ref erence range: 0.00 - 0 .50 K/L. The refe rence range was not u sed to interpret this result as normal/abnor mal. # Baso (test code = 417) 0.05 See_Comment [A utomated message] The system [employer] generated this result transmitted ref erence range: 0.00 - 0 .20 K/L. The refe rence range was not u sed to interpret this result as normal/abnor mal. Immature 1 % 0-0 H Granulocytes-Relative (test code = 2801) Lab Interpretation (test Abnormal code = 02534-7) [facility] with platelet count + automated [id number] 05:17:00 Test Item Value Reference Range Interpretation Comments WBC (test code = 6690-2) 7.6 See_Comment [A utomated message] The system [employer] generated this result transmitted ref erence range: 4.0 - 10 .0 K/L. The refe rence range was not u sed to interpret this result as normal/abnor mal. RBC (test code = 789-8) 3.54 See_Comment L [Au tomated message] The system [employer] generated this result transmitted ref erence range: 4.20 - 5 .80 M/L. The refe rence range was not u sed to interpret this result as normal/abnor mal. MCHC (test code = 786-4) 31.0 See_Comment L [A utomated message] The system [employer] generated this result transmitted ref erence range: [...] See_Comment [Aut omated message] 777-3) The system [employer] generated this result transmitted ref erence range: 150 - 43 0 K/CU MM. The referen ce range was not u sed to interpret this result as normal/abnor mal. MPV (test code = 11.1 fL 6.0-11.5 66905-2) nRBC (test code = 413) 0 See_Comment [Aut omated message] The system [employer] generated this result transmitted ref erence range: [...] See_Comment [Aut omated message] 670) The system [employer] generated this result transmitted ref erence range: 1.80 - 8 .00 K/L. The refe rence range was not u sed to interpret this result as normal/abnor mal. # Lymphs (test code = 0.97 See_Comment L [Auto mated message] 414) The system [employer] generated this result transmitted ref erence range: 1.48 - 4 .50 K/L. The refe rence range was not u sed to interpret this result as normal/abnor mal. # Monos (test code = 0.74 See_Comment [Autom ated message] 415) The system [employer] generated this result transmitted ref erence range: 0.00 - 1 .30 K/L. The refe rence range was not u sed to interpret this result as normal/abnor mal. # Eos (test code = 416) 0.21 See_Comment [Au tomated message] The system [employer] generated this result transmitted ref erence range: 0.00 - 0 .50 K/L. The refe rence range was not u sed to interpret this result as normal/abnor mal. # Baso (test code = 417) 0.05 See_Comment [A utomated message] The system [employer] generated this result transmitted ref erence range: 0.00 - 0 .20 K/L. The refe rence range was not u sed to interpret this result as normal/abnor mal. Immature 1 % 0-0 H Granulocytes-Relative (test code = 2801) Lab Interpretation (test Abnormal code = 93334-2) [facility] with platelet count + automated [id number] 05:17:00 Test Item Value Reference Range Interpretation Comments WBC (test code = 6690-2) 7.6 See_Comment [A utomated message] The system [employer] generated this result transmitted ref erence range: 4.0 - 10 .0 K/L. The refe rence range was not u sed to interpret this result as normal/abnor mal. RBC (test code = 789-8) 3.54 See_Comment L [Au tomated message] The system [employer] generated this result transmitted ref erence range: 4.20 - 5 .80 M/L. The refe rence range was not u sed to interpret this result as normal/abnor mal. MCHC (test code = 786-4) 31.0 See_Comment L [A utomated message] The system [employer] generated this result transmitted ref erence range: [...] code = 230 See_Comment [Aut omated message] 637-3) The system [employer] generated this result transmitted ref erence range: 150 - 43 0 K/CU MM. The referen ce range was not u sed to interpret this result as normal/abnor mal. MPV (test code = 11.1 fL 6.0-11.5 76264-9) nRBC (test code = 413) 0 See_Comment [Aut omated message] The system [employer] generated this result transmitted ref erence range: [...] See_Comment [Aut omated message] 670) The system [employer] generated this result transmitted ref erence range: 1.80 - 8 .00 K/L. The refe rence range was not u sed to interpret this result as normal/abnor mal. # Lymphs (test code = 0.97 See_Comment L [Auto mated message] 414) The system [employer] generated this result transmitted ref erence range: 1.48 - 4 .50 K/L. The refe rence range was not u sed to interpret this result as normal/abnor mal. # Monos (test code = 0.74 See_Comment [Autom ated message] 415) The system [employer] generated this result transmitted ref erence range: 0.00 - 1 .30 K/L. The refe rence range was not u sed to interpret this result as normal/abnor mal. # Eos (test code = 416) 0.21 See_Comment [Au tomated message] The system [employer] generated this result transmitted ref erence range: 0.00 - 0 .50 K/L. The refe rence range was not u sed to interpret this result as normal/abnor mal. # Baso (test code = 417) 0.05 See_Comment [A utomated message] The system [employer] generated this result transmitted ref erence range: 0.00 - 0 .20 K/L. The refe rence range was not u sed to interpret this result as normal/abnor mal. Immature 1 % 0-0 H Granulocytes-Relative (test code = 2801) Lab Interpretation (test Abnormal code = 86376-6) [facility] with platelet count + automated [id number] 05:17:00 Test Item Value Reference Range Interpretation Comments WBC (test code = 6690-2) 7.6 See_Comment [A utomated message] The system [employer] generated this result transmitted ref erence range: 4.0 - 10 .0 K/L. The refe rence range was not u sed to interpret this result as normal/abnor mal. RBC (test code = 789-8) 3.54 See_Comment L [Au tomated message] The system [employer] generated this result transmitted ref erence range: 4.20 - 5 .80 M/L. The refe rence range was not u sed to interpret this result as normal/abnor mal. MCHC (test code = 786-4) 31.0 See_Comment L [A utomated message] The system [employer] generated this result transmitted ref erence range: [...] See_Comment [Aut omated message] 777-3) The system [employer] generated this result transmitted ref erence range: 150 - 43 0 K/CU MM. The referen ce range was not u sed to interpret this result as normal/abnor mal. MPV (test code = 11.1 fL 6.0-11.5 56191-3) nRBC (test code = 413) 0 See_Comment [Aut omated message] The system [employer] generated this result transmitted ref erence range: [...] See_Comment [Aut omated message] 670) The system [employer] generated this result transmitted ref erence range: 1.80 - 8 .00 K/L. The refe rence range was not u sed to interpret this result as normal/abnor mal. # Lymphs (test code = 0.97 See_Comment L [Auto mated message] 414) The system [employer] generated this result transmitted ref erence range: 1.48 - 4 .50 K/L. The refe rence range was not u sed to interpret this result as normal/abnor mal. # Monos (test code = 0.74 See_Comment [Autom ated message] 415) The system [employer] generated this result transmitted ref erence range: 0.00 - 1 .30 K/L. The refe rence range was not u sed to interpret this result as normal/abnor mal. # Eos (test code = 416) 0.21 See_Comment [Au tomated message] The system [employer] generated this result transmitted ref erence range: 0.00 - 0 .50 K/L. The refe rence range was not u sed to interpret this result as normal/abnor mal. # Baso (test code = 417) 0.05 See_Comment [A utomated message] The system [employer] generated this result transmitted ref erence range: 0.00 - 0 .20 K/L. The refe rence range was not u sed to interpret this result as normal/abnor mal. Immature 1 % 0-0 H Granulocytes-Relative (test code = 2801) Lab Interpretation (test Abnormal code = 60847-5) [facility] W/PLT COUNT & AUTO [id number] 05:17:00 Test Item Value Reference Range Interpretation [...] PERCENT (BEAKER) (test code = 2801) POCT-GLUCOSE [id number] 13:00:00 Test Item Value Reference Range Interpretation Comments POC-GLUCOSE METER 114 mg/dL 70-110 H : Notified RN/MD: TESTED (BEAKER) (test code AT [facility] [address] = 1538) ANANDCandido [facility] [address]: Thermostat Maker/Techni cornelia ID = [id number] for Cony Osborne ANAEROBIC [id number] 09:52:00 Test Item Value Reference Range Interpretation Comments CULTURE (BEAKER) (test No anaerobes isolated code = 1095) Anaerobic [id number] 09:51:00 Test Item Value Reference Range Interpretation Comments Result (test code = No anaerobes isolated 6463-4) [facility] [id number] 09:51:00 Test Item Value Reference Range Interpretation Comments Result (test code = No anaerobes isolated 6463-4) [facility] [id number] 09:51:00 Test Item Value Reference Range Interpretation Comments Result (test code = No anaerobes isolated 6463-4) [facility] [id number] 09:51:00 Test Item Value Reference Range Interpretation Comments Result (test code = No anaerobes isolated 6463-4) [facility] [id number] 09:51:00 Test Item Value Reference Range Interpretation Comments Result (test code = No anaerobes isolated 6463-4) [facility] [id number] 09:51:00 Test Item Value Reference Range Interpretation Comments Result (test code = No anaerobes isolated 6463-4) [facility] [id number] 09:51:00 Test Item Value Reference Range Interpretation Comments Result (test code = No anaerobes isolated 6463-4) [facility] [id number] 09:51:00 Test Item Value Reference Range Interpretation Comments CULTURE (BEAKER) (test No anaerobes isolated code = 1095) BASIC METABOLIC [id number] 06:34:00 Test Item Value Reference Range Interpretation [...] S NOT APPLICABLE FOR DIALYSIS PATIEN TS. Thermostat Maker ID - [id number] ID - [id number] ID - [id number] ID - [id number] ID - [id number] ID - [id number] ID - [id number] ID - [id number] ID - [id number] ID - [id number]- GLUCOSE [id number] 06:13:00 Test Item Value Reference Range Interpretation Comments POC-GLUCOSE METER 95 mg/dL 70-110 : TESTED A T [facility] [address] (BEAKER) (test code = [address], 15[address]) [facility] [place] [address]: Thermostat Maker/Techni cornelia ID = [id number] for Lisa taz Agustina [id number] 05:36:00 Test Item Value Reference Range Interpretation Comments MAGNESIUM (BEAKER) (test code = 1.9 mg/dL 1.5-3.0 627) Thermostat Maker ID - [id number] ID - [id number] ID - [id number] ID - [id number] W/PLT COUNT & AUTO [id number] 05:21:00 Test Item Value Reference Range Interpretation [...] PERCENT (BEAKER) (test code = 2801) POCT-GLUCOSE [id number] 21:10:00 Test Item Value Reference Range Interpretation Comments POC-GLUCOSE METER 137 mg/dL 70-110 H : TESTED A T [facility] [address] (BEAKER) (test code [address] [facility] [address], = 1538) [place] [address]: Thermostat Maker/Techni cornelia ID = [id number] for Agustina Harrison POCT-GLUCOSE [id number] 19:19:00 Test Item Value Reference Range Interpretation Comments POC-GLUCOSE METER 119 mg/dL 70-110 H : TESTED A T [address] [address] (BEAKER) (test code [facility], = 1538) [place] [address]: Thermostat Maker/Techni cornelia ID = [id number] for Adrienne r, Heidy POCT-GLUCOSE [id number] 12:43:00 Test Item Value Reference Range Interpretation Comments POC-GLUCOSE METER 126 mg/dL 70-110 H : TESTED A T [facility] [address] (BEAKER) (test [facility], = 1538) [place] [address]: Thermostat Maker/Techni cornelia ID = [id number] for Adrienne r, Heidy POCT-GLUCOSE [id number] 06:47:00 Test Item Value Reference Range Interpretation Comments POC-GLUCOSE METER 132 mg/dL 70-110 H : TESTED A T [address] [address] (BEAKER) ([facility], = 1538) [place] [address]: Thermostat Maker/Techni cornelia ID = [id number] for Zackary Bustamante si BASIC METABOLIC [id number] 04:59:00 Test Item Value Reference Range Interpretation [...] S NOT APPLICABLE FOR DIALYSIS PATIEN TS. Thermostat Maker ID - [id number] ID - [id number] ID - [id number] ID - [id number] ID - [id number] ID - [id number] ID - [id number] ID - [id number] ID - [id number] ID - [id number] 04:44:00 Test Item Value Reference Range Interpretation Comments MAGNESIUM (BEAKER) (test code = 2.0 mg/dL 1.5-3.0 627) Thermostat Maker ID - [id number] ID - [id number] ID - [id number] ID - [id number] CBC W/PLT COUNT & AUTO [id number] 04:30:00 Test Item Value Reference Range Interpretation [...] PERCENT (BEAKER) (test code = 2801) POCT-GLUCOSE [id number] 23:23:00 Test Item Value Reference Range Interpretation Comments POC-GLUCOSE METER 156 mg/dL 70-110 H : TESTED A T [facility] [address] (BEAKER) (test code [facility], = 1538) [place] [address]: Thermostat Maker/Techni cornelia ID = [id number] for Dianna siYfno POCT-GLUCOSE [id number] 18:35:00 Test Item Value Reference Range Interpretation Comments POC-GLUCOSE METER 137 mg/dL 70-110 H : TESTED A T [facility] [address] (BEAKER) (test code [facility], = 1538) [place] [address]: Thermostat Maker/Techni cornelia ID = [id number] for Adrienne r, Heidy POCT-GLUCOSE [id number] 13:42:00 Test Item Value Reference Range Interpretation Comments POC-GLUCOSE METER 109 mg/dL 70-110 : TESTED A T [facility] [address] (BEAKER) (test code [facility], = 1538) [place] [address]: Thermostat Maker/Techni cornelia ID = [id number] for Adrienne r, Heidy RAD, FOOT, MIN 3 VIEWS, [id number] 09:06:00Reason for exam:->s/p 5th metatarsal head [facility] 1975 Sex: MFINAL [...] Gleason Verified Date/Time: 09/26/2020 09:06:00 Reading Location: [facility] Radiology Reading Room XR foot 3 views [id number] 09:06:00 Interface, External Ris In - 09/26/2020 [...] Gleason Verified Date/Time: 09/26/2020 09:06:00 Reading Location: [facility] [id number] 09:06:00Interface, External Ris In - 09/26/2020 9:08 [...] Gleason Verified Date/Time: 09/26/2020 09:06:00 Reading Location: [facility] Radiology [facility] [id number] 09:06:00Interface, External Ris In - 09/26/2020 9:08 [...] Gleason Verified Date/Time: 09/26/2020 09:06:00 Reading Location: [facility] Radiology [facility] [id number] 09:06:00Interface, External Ris In - 09/26/2020 9:08 [...] IMPRESSION: 1. Unremarkable postoperative left foot. Signed: Gleason, Jerad MDReport Verified Date/Time: 09/26/2020 09:06:00 Reading Location: [facility] Radiology Reading [facility] [id number] 08:47:00 Test Item Value Reference Range Interpretation Comments POC-GLUCOSE METER 134 mg/dL 70-110 H : Notified RN/MD: TESTED (BEAKER) (test code AT [facility] [address] = 1538) [place] [facility] [address]: Thermostat Maker/Techni cornelia ID = [id number] for Lance juancarlosRaf Marzena BASIC METABOLIC [id number] 06:13:00 Test Item Value Reference Range Interpretation [...] S NOT APPLICABLE FOR DIALYSIS PATIEN TS. Thermostat Maker ID - [id number] ID - [id number] ID - [id number] ID - [id number] ID - [id number] ID - [id number] ID - reye43Lhwghrie ID - [id number] ID - [id number] ID - [id number] 06:08:00 Test Item Value Reference Range Interpretation Comments MAGNESIUM (BEAKER) (test code = 2.2 mg/dL 1.5-3.0 627) Thermostat Maker ID - [id number] ID - [id number] ID - [id number] ID - [id number] B-type Natriuretic Factor (BNP)2020-09-26 06:01:00 Test Item Value Reference Range Interpretation Comments BNP (test code = 78345-9) 929 pg/mL 0-100 H ISSA (test code = ISSA) Thermostat Maker ID - [id number] Lab Interpretation (test Abnormal code = 93975-0) [facility]26 06:01:00 Test Item Value Reference Range Interpretation Comments BNP (test code = 58477-3) 929 pg/mL 0-100 H ISSA (test code = ISSA) Thermostat Maker ID - [id number] Lab Interpretation (test Abnormal code = 00264-8) [facility] (BNP[facility]2020-09-26 06:01:00 Test Item Value Reference Range Interpretation Comments BNP (test code = 35454-9) 929 pg/mL 0-100 H ISSA (test code = ISSA) Thermostat Maker ID - [id number] Lab Interpretation (test Abnormal code = 48485-1) [facility] (BNP[facility]2020-09-26 06:01:00 Test Item Value Reference Range Interpretation Comments BNP (test code = 60486-3) 929 pg/mL 0-100 H ISSA (test code = ISSA) Thermostat Maker ID - [id number] Lab Interpretation (test Abnormal code = 76546-2) [facility] (BNP)2020-09-26 06:01:00 Test Item Value Reference Range Interpretation Comments BNP (test code = 40384-9) 929 pg/mL 0-100 H ISSA (test code = ISSA) Thermostat Maker ID - [id number] Lab Interpretation (test Abnormal code = 76971-3) [facility] (BNP)2020-09-26 06:01:00 Test Item Value Reference Range Interpretation Comments BNP (test code = 92078-0) 929 pg/mL 0-100 H ISSA (test code = ISSA) Thermostat Maker ID - [id number] Lab Interpretation (test Abnormal code = 05927-4) [facility] Nat[facility] (BNP)2020-09-26 06:01:00 Test Item Value Reference Range Interpretation Comments BNP (test code = 32574-4) 929 pg/mL 0-100 H ISSA (test code = ISSA) Thermostat Maker ID - [id number] Lab Interpretation (test Abnormal code = 74055-2) [facility] NATRIURETIC FACTOR (BNP)2020-09-26 06:01:00 Test Item Value Reference Range Interpretation Comments B-TYPE NATRIURETIC PEPTIDE (BEAKER) 929 pg/mL 0-100 H (test code = 700) Thermostat Maker ID - [id number] W/PLT COUNT & AUTO [id number] 05:44:00 Test Item Value Reference Range Interpretation [...] PERCENT (BEAKER) (test code = 2801) POCT-GLUCOSE [id number] 21:22:00 Test Item Value Reference Range Interpretation Comments POC-GLUCOSE METER 162 mg/dL 70-110 H : TESTED A T [facility] [address] (BEAKER) (test code [facility], = 1538) [place] [address]: Thermostat Maker/Techni cornelia ID = [id number] for Agustina Harrison POCT-GLUCOSE [id number] 16:27:00 Test Item Value Reference Range Interpretation Comments POC-GLUCOSE METER 151 mg/dL 70-110 H : TESTED A T [facility] [address] (BEAKER) (test code [facility] [address], = 1538) [place] [address]: Thermostat Maker/Techni cornelia ID = [id number] for Judy suha, Ayinor POCT-GLUCOSE [id number] 11:32:00 Test Item Value Reference Range Interpretation Comments POC-GLUCOSE METER 104 mg/dL 70-110 : TESTED A T [facility] [address] (BEAKER) ([facility] [address] [facility], = 1538) [place] [address]: Thermostat Maker/Techni cornelia ID = [id number] for Judy suha, Ayinor POCT-GLUCOSE [id number] 06:17:00 Test Item Value Reference Range Interpretation Comments POC-GLUCOSE METER 112 mg/dL 70-110 H : TESTED A T [address] [address] (BEAKER) (test [facility], = 1538) [facility] [address]: Thermostat Maker/Techni cornelia ID = [id number] for Lani Kat [id number] 05:39:00 Test Item Value Reference Range Interpretation Comments MAGNESIUM (BEAKER) (test code = 1.9 mg/dL 1.5-3.0 627) Thermostat Maker ID - LITOOperator ID - LITOOperator ID - LITOOperator ID - LITOBASIC METABOLIC [id number] 05:38:00 Test Item Value Reference Range Interpretation [...] S NOT APPLICABLE FOR DIALYSIS PATIEN TS. Thermostat Maker ID - LITOOperator ID - LITOOperator ID - LITOOperator ID - LITOOperator ID - LITOOperator ID - LITOOperator ID - LITOOperator ID - LITOOperator ID - LITOOperator ID - LITOCBC W/PLT COUNT & AUTO [id number] 05:20:00 Test Item Value Reference Range Interpretation [...] PERCENT (BEAKER) (test code = 2801) POCT-GLUCOSE [id number] 20:48:00 Test Item Value Reference Range Interpretation Comments POC-GLUCOSE METER 167 mg/dL 70-110 H : TESTED A T [address] [address] (BEAKER) (test code [address], = 1538) [facility] [address]: Thermostat Maker/Techni cornelia ID = [id number] for Lani Kat POCT-GLUCOSE [id number] 17:48:00 Test Item Value Reference Range Interpretation Comments POC-GLUCOSE METER 260 mg/dL 70-110 H : TESTED A T [facility] [address] (BEAKER) (test code [address], = 1538) [place] [address]: Thermostat Maker/Techni cornelia ID = [id number] for Adrienne jett Heidy ARTERIAL DOPPLER LEGS, [id number] 13:42:00Reason for exam:- >osteomyelitis left foot [facility] FOR[facility] : 1975 Sex: MFINAL REPORT [...] diffuse peripheral vascular disease. Signed: Jerome Ortiz [facility] Verified Date/Time: 09/24/2020 13:42:37 Reading Location: [facility] Radiology Reading Room Arterial Doppler Legs [id number] 13:42:00Interface, External Ris In - 09/24/2020 1:44 [...] MDReport Verified Date/Time: 09/24/2020 13:42:37 Reading Location: [facility] Radiology Reading Room [facility] Hdvhgsklk1473-67-82 13:42:00Interface, External Ris In - 09/24/2020 1:44 PM CDTFINAL REPORT BILATERAL LOWER EXTREMITY ARTERIAL DOPPLER EVALUATION History provided: Osteomyelitis, diabetes Grayscale, color D oppler, and spectral wave form analysis were performed. [...] Ortiz Verified Date/Time: 09/24/2020 13:42:37 Reading Location: [facility] Radiology Reading Room [facility] Hospital[facility] Legs [id number] 13:42:00Interface, External Ris In - 09/24/2020 1:44 [...] Ortiz Verified Date/Time: 09/24/2020 13:42:37 Reading Location: [facility] Radiology Reading Room [facility] HospitalAr[facility] Legs [id number] 13:42:00Interface, External Ris In - 09/24/2020 1:44 PM CDTFINAL REPORT BILATERAL LOWER EXTREMITY ARTERIAL DOPPLER EVALUATION History provided: Osteomyelitis, diabetes Grayscale, color D oppler, and spectral wave form analysis were performed. [...] MDReport Verified Date/Time: 09/24/2020 13:42:37 Reading Location: [facility] Radiology Reading Room [facility] HospitalUrea Nitrogen, random [id number] 10:42:00 Test Item Value Reference Range Interpretation Comments Urea Nitrogen, Ur 236 mg/dL (test code = 3095-7) ISSA (test code = Reference Range: No ISSA) NormalsOperator ID - ORION Carrasquillo [facility] Nitrogen, random [id number] 10:42:00 Test Item Value Reference Range Interpretation Comments Urea Nitrogen, Ur 236 mg/dL (test code = 3095-7) ISSA (test code = Reference Range: No ISSA) NormalsOperator ID - ORION Carrasquillo [facility] HospitalU[facility] Nitrogen, random [id number] 10:42:00 Test Item Value Reference Range Interpretation Comments Urea Nitrogen, Ur 236 mg/dL (test code = 3095-7) ISSA (test code = Reference Range: No ISSA) NormalsOperator ID - ORION Carrasquillo [facility] HospitalUrea Nitrogen, random [id number] 10:42:00 Test Item Value Reference Range Interpretation Comments Urea Nitrogen, Ur 236 mg/dL (test code = 3095-7) ISSA (test code = Reference Range: No ISSA) NormalsOperator ID - ORION Carrasquillo [facility] HospitalU[facility] Nitrogen, random [id number] 10:42:00 Test Item Value Reference Range Interpretation Comments Urea Nitrogen, Ur 236 mg/dL (test code = 3095-7) ISSA (test code = Reference Range: No ISSA) NormalsOperator ID - [facility]ION [facility] [id number] 10:42:00 Test Item Value Reference Range Interpretation Comments Urea Nitrogen, Ur 236 mg/dL (test code = 3095-7) ISSA (test code = Reference Range: No ISSA) NormalsOperator ID - MAR C [facility] HospitalUrea Nitrogen, random [id number] 10:42:00 Test Item Value Reference Range Interpretation Comments Urea Nitrogen, Ur 236 mg/dL (test code = 3095-7) ISSA (test code = Reference Range: No ISSA) NormalsOperator ID - MAR C [facility] HospitalUREA NITROGEN, RANDOM [id number] 10:42:00 Test Item Value Reference Range Interpretation Comments UREA NITROGEN URINE (BEAKER) (test 236 mg/dL code = 538) Reference Range: No NormalsOperator ID - MAR CVitamin D, [id number] 10:38:00 Test Item Value Reference Range Interpretation Comments Vitamin D 25-Hydroxy 7.3 ng/mL 6.6-49.9 (test code = 2764) ISSA (test code = ISSA) Effective 01/06/2017: Reference Range ChangeNew: 6.6-49.9 ng/mL Previous: 13.0-47.8 ng/mL Recommended Vitamin D Target Range: 30.0-40.0 ng/mLOperator ID ORION C Lab Interpretation (test Normal code = 15233-8) [facility] HospitalVitamin D, [id number] 10:38:00 Test Item Value Reference Range Interpretation Comments Vitamin D 25-Hydroxy 7.3 ng/mL 6.6-49.9 (test code = 2764) ISSA (test code = ISSA) Effective 01/06/2017: Reference Range ChangeNew: 6.6-49.9 ng/mL Previous: 13.0-47.8 ng/mL Recommended Vitamin D Target Range: 30.0-40.0 ng/mLOperator ID ORION C Lab Interpretation (test Normal code = 78906-2) [facility] 72-Ndkhzdb1848-65-29 10:38:00 Test Item Value Reference Range Interpretation Comments Vitamin D 25-Hydroxy 7.3 ng/mL 6.6-49.9 (test code = 2764) ISSA (test code = ISSA) Effective 01/06/2017: Reference Range ChangeNew: 6.6-49.9 ng/mL Previous: 13.0-47.8 ng/mL Recommended Vitamin D Target Range: 30.0-40.0 ng/mLOperator ID - ORION C Lab Interpretation (test Normal code = 03820-8) [facility], 37-Oeqeozh4866-21-29 10:38:00 Test Item Value Reference Range Interpretation Comments Vitamin D 25-Hydroxy 7.3 ng/mL 6.6-49.9 (test code = 2764) ISSA (test code = ISSA) Effective 01/06/2017: Reference Range ChangeNew: 6.6-49.9 ng/mL Previous: 13.0-47.8 ng/mL Recommended Vitamin D Target Range: 30.0-40.0 ng/mLOperator ID - ORION C Lab Interpretation (test Normal code = 52347-3) [facility], 15-[id number] 10:38:00 Test Item Value Reference Range Interpretation Comments Vitamin D 25-Hydroxy 7.3 ng/mL 6.6-49.9 (test code = 2764) ISSA (test code = ISSA) Effective 01/06/2017: Reference Range ChangeNew: 6.6-49.9 ng/mL Previous: 13.0-47.8 ng/mL Recommended Vitamin D Target Range: 30.0-40.0 ng/mLOperator ID - ORION C Lab Interpretation (test Normal code = 09187-3) [facility], 47-Fdpdvhr0669-37-29 10:38:00 Test Item Value Reference Range Interpretation Comments Vitamin D 25-Hydroxy 7.3 ng/mL 6.6-49.9 (test code = 2764) ISSA (test code = ISSA) Effective 01/06/2017: Reference Range ChangeNew: 6.6-49.9 ng/mL Previous: 13.0-47.8 ng/mL Recommended Vitamin D Target Range: 30.0-40.0 ng/mLOperator ID - ORION C Lab Interpretation (test Normal code = 88932-3) [facility], 87-Xdtymzc4211-20-29 10:38:00 Test Item Value Reference Range Interpretation Comments Vitamin D 25-Hydroxy 7.3 ng/mL 6.6-49.9 (test code = 2764) ISSA (test code = ISSA) Effective 01/06/2017: Reference Range ChangeNew: 6.6-49.9 ng/mL Previous: 13.0-47.8 ng/mL Recommended Vitamin D Target Range: 30.0-40.0 ng/mLOperator ID ORION C Lab Interpretation (test Normal code = 17062-2) [facility], 66-[id number] 10:38:00 Test Item Value Reference Range Interpretation Comments VITAMIN D 25-OH (BEAKER) (test code 7.3 ng/mL 6.6-49.9 = 2764) Effective 01/06/2017: Reference Range ChangeNew: 6.6-49.9 ng/mL Previous: 13.0-47.8 ng/mLRecommended Vitamin D Target Range: 30.0-40.0 ng/mLOperator ID - ORION [facility], [id number] 07:31:00 Test Item Value Reference Range Interpretation Comments PTH (test code = 2731-8) 271.6 pg/mL 15-90 H ISSA (test code = ISSA) Thermostat Maker ID - [id number] Lab Interpretation (test Abnormal code = 28944-9) [facility], [id number] 07:31:00 Test Item Value Reference Range Interpretation Comments PTH (test code = 2731-8) 271.6 pg/mL 15-90 H ISSA (test code = ISSA) Thermostat Maker ID - [id number] Lab Interpretation (test Abnormal code = 13132-8) [facility], [id number] 07:31:00 Test Item Value Reference Range Interpretation Comments PTH (test code = 2731-8) 271.6 pg/mL 15-90 H ISSA (test code = ISSA) Thermostat Maker ID - [id number] Lab Interpretation (test Abnormal code = 93178-4) [facility], [id number] 07:31:00 Test Item Value Reference Range Interpretation Comments PTH (test code = 2731-8) 271.6 pg/mL 15-90 H ISSA (test code = ISSA) Thermostat Maker ID - [id number] Lab Interpretation (test Abnormal code = 82169-0) [facility], [id number] 07:31:00 Test Item Value Reference Range Interpretation Comments PTH (test code = 2731-8) 271.6 pg/mL 15.0-90.0 H ISSA (test code = ISSA) Thermostat Maker ID - [id number] Lab Interpretation (test Abnormal code = 28584-2) [facility], dtsujm2267-11-82 07:31:00 Test Item Value Reference Range Interpretation Comments PTH (test code = 2731-8) 271.6 pg/mL 15.0-90.0 H ISSA (test code = ISSA) Thermostat Maker ID - [id number] Lab Interpretation (test Abnormal code = 81999-9) [facility], [id number] 07:31:00 Test Item Value Reference Range Interpretation Comments PTH (test code = 2731-8) 271.6 pg/mL 15.0-90.0 H ISSA (test code = ISSA) Thermostat Maker ID - [id number] Lab Interpretation (test Abnormal code = 68539-5) [facility], [id number] 07:31:00 Test Item Value Reference Range Interpretation Comments PARATHYROID HORMONE INTACT 271.6 pg/mL 15.0-90.0 H (BEAKER) (test code = 577) Thermostat Maker ID - [id number] 06:45:00 Test Item Value Reference Range Interpretation Comments POC-GLUCOSE METER 122 mg/dL 70-110 H : Notified RN/MD: TESTED (BEAKER) (test code AT [address] POINT = 1538) [facility] [address]: Thermostat Maker/Techni cornelia ID = [id number] for Coco Griffin Iron, TIBC, % sat. (without ferritin)2020-09-24 06:41:00 Test Item Value Reference Range Interpretation Comments Iron (test code = 43.0 ug/dL 45-170 L 2498-4) TIBC (test code = 189 ug/dL 250-550 L 2500-7) Iron % Saturation (test 23 % 20-55 code = 2502-3) ISSA (test code = ISSA) Thermostat Maker ID - LITOOperator ID - ARCHIE Lab Interpretation (test Abnormal code = 14608-6) [facility], % sat. (without ferritin)2020-09-24 06:41:00 Test Item Value Reference Range Interpretation Comments Iron (test code = 43.0 ug/dL 45-170 L 2498-4) TIBC (test code = 189 ug/dL 250-550 L 2500-7) Iron % Saturation (test 23 % 20-55 code = 2502-3) ISSA (test code = ISSA) Thermostat Maker ID - LITOOperator ID - ARCHIE Lab Interpretation (test Abnormal code = 42037-3) [facility], TIBC, % sat. (without ferritin)2020-09-24 06:41:00 Test Item Value Reference Range Interpretation Comments Iron (test code = 43.0 ug/dL 45-170 L 2498-4) TIBC (test code = 189 ug/dL 250-550 L 2500-7) Iron % Saturation (test 23 % 20-55 code = 2502-3) ISSA (test code = ISSA) Thermostat Maker ID - LITOOperator ID - ARCHIE Lab Interpretation (test Abnormal code = 92531-9) [facility], TIBC, % sat. (without ferritin)2020-09-24 06:41:00 Test Item Value Reference Range Interpretation Comments Iron (test code = 43.0 ug/dL 45-170 L 2498-4) TIBC (test code = 189 ug/dL 250-550 L 2500-7) Iron % Saturation (test 23 % 20-55 code = 2502-3) ISSA (test code = ISSA) Thermostat Maker ID - LITOOperator ID - ARCHIE Lab Interpretation (test Abnormal code = 60654-0) [facility], TIBC, % sat. (without ferritin)2020-09-24 06:41:00 Test Item Value Reference Range Interpretation Comments Iron (test code = 43.0 ug/dL 45.0-170.0 L 2498-4) TIBC (test code = 189 ug/dL 250-550 L 2500-7) Iron % Saturation (test 23 % 20-55 code = 2502-3) ISSA (test code = ISSA) Thermostat Maker ID - LITOOperator ID - ARCHIE Lab Interpretation (test Abnormal code = 77743-1) [facility], TIBC, % sat. (without ferritin)2020-09-24 06:41:00 Test Item Value Reference Range Interpretation Comments Iron (test code = 43.0 ug/dL 45.0-170.0 L 2498-4) TIBC (test code = 189 ug/dL 250-550 L 2500-7) Iron % Saturation (test 23 % 20-55 code = 2502-3) ISSA (test code = ISSA) Thermostat Maker ID - LITOOperator ID - ARCHIE Lab Interpretation (test Abnormal code = 06341-4) [facility], % sat. (without ferritin)2020-09-24 06:41:00 Test Item Value Reference Range Interpretation Comments Iron (test code = 43.0 ug/dL 45.0-170.0 L 2498-4) TIBC (test code = 189 ug/dL 250-550 L 2500-7) Iron % Saturation (test 23 % 20-55 code = 2502-3) ISSA (test code = ISSA) Thermostat Maker ID - LITOOperator ID - ARCHIE Lab Interpretation (test Abnormal code = 18485-2) [facility], [facility]BC, % SAT. (WITHOUT FERRITIN)2020-09-24 06:41:00 Test Item Value Reference Range Interpretation Comments IRON (BEAKER) (test code = 547) 43.0 ug/dL 45.0-170.0 L TOTAL IRON BINDING CAPACITY 189 ug/dL 250-550 L (BEAKER) (test code = 769) IRON % SATURATION (2) (BEAKER) 23 % 20-55 (test code = 2590) Thermostat Maker ID - LITOOperator ID - [id number] 06:23:00 Test Item Value Reference Range Interpretation Comments Ferritin (test code = 190.40 ng/mL 22-322 2276-4) ISSA (test code = ISSA) Thermostat Maker ID - ARCHIE Lab Interpretation (test Normal code = 66846-8) [facility] 06:23:00 Test Item Value Reference Range Interpretation Comments Ferritin (test code = 190.40 ng/mL 22-322 2276-4) ISSA (test code = ISSA) Thermostat Maker ID - ARCHIE Lab Interpretation (test Normal code = 61128-4) [facility] 06:23:00 Test Item Value Reference Range Interpretation Comments Ferritin (test code = 190.40 ng/mL 22-322 2276-4) ISSA (test code = ISSA) Thermostat Maker ID - ARCHIE Lab Interpretation (test Normal code = 99804-0) [facility] 06:23:00 Test Item Value Reference Range Interpretation Comments Ferritin (test code = 190.40 ng/mL 22-322 2276-4) ISSA (test code = ISSA) Thermostat Maker ID - ARCHIE Lab Interpretation (test Normal code = 73860-3) [facility] 06:23:00 Test Item Value Reference Range Interpretation Comments Ferritin (test code = 190.40 ng/mL 22.00-322.00 2276-4) ISSA (test code = ISSA) Thermostat Maker ID - ARCHIE Lab Interpretation (test Normal code = 71859-7) [facility] 06:23:00 Test Item Value Reference Range Interpretation Comments Ferritin (test code = 190.40 ng/mL 22.00-322.00 2276-4) ISSA (test code = ISSA) Thermostat Maker ID - ARCHIE Lab Interpretation (test Normal code = 94638-6) [facility] 06:23:00 Test Item Value Reference Range Interpretation Comments Ferritin (test code = 190.40 ng/mL 22.00-322.00 2276-4) ISSA (test code = ISSA) Thermostat Maker ID - ARCHIE Lab Interpretation (test Normal code = 11941-9) [facility] 06:23:00 Test Item Value Reference Range Interpretation Comments FERRITIN (BEAKER) (test code = 190.40 ng/mL 22.00-322.00 361) Thermostat Maker ID - LITOBASIC METABOLIC [id number] 06:18:00 Test Item Value Reference Range Interpretation [...] S NOT APPLICABLE FOR DIALYSIS PATIEN TS. Thermostat Maker ID - LITOOperator ID - LITOOperator ID - LITOOperator ID - LITOOperator ID - LITOOperator ID - LITOOperator ID - LITOOperator ID - LITOOperator ID - LITOOperator ID - [id number] 06:04:00 Test Item Value Reference Range Interpretation Comments MAGNESIUM (BEAKER) (test code = 1.6 mg/dL 1.5-3.0 627) Thermostat Maker ID - LITOOperator ID - LITOOperator ID - LITOOperator ID - [id number] W/PLT COUNT & AUTO [id number] 06:03:00 Test Item Value Reference Range Interpretation [...] PERCENT (BEAKER) (test code = 2801) POCT-GLUCOSE [id number] 21:37:00 Test Item Value Reference Range Interpretation Comments POC-GLUCOSE METER 185 mg/dL 70-110 H : TESTED A T SLSL 1317 (BEAKER) (test code [facility] [address], = 1538) [facility] [address]: Thermostat Maker/Techni cornelia ID = [id number] for Rachel Branham U/S, RENAL, [id number] 21:19:00Reason for exam:->Acute renal [facility] FRANDY FORD : 1975 Sex: MFINAL REPORT [...] Petersen MDReport Verified Date/Time: 121:19:36 US renal [id number] 21:19:00Interface, External Ris In - 09/23/2020 9:21 [...] Signed: Teo Petersen Verified Date/Time: 09/23/2020 21:19:36 [facility] renal complete 2020-09-23 21:19:00Interface, External Ris [...] Moose Petersen Verified Date/Time: 09/23/2020 21:19:36 [facility] renal [id number] 21:19:00Interface, External Ris In - 09/23/2020 9:21 [...] Signed: Moose Peterseneport Verified Date/Time: 09/23/2020 21:19:36 [facility] obsxxkot0327[facility]83-57 21:19:00Interface, External Ris In - 09/23/2020 9:21 [...] Signed: Moose Petersenort Verified Date/Time: 09/23/2020 21:19:36 [facility] Protein, random [id number] 19:02:00 Test Item Value Reference Range Interpretation Comments Protein, Urine (test code 212 mg/dL 0-14 H = 2888-6) ISSA (test code = ISSA) Thermostat Maker ID - [id number] ID - [id number] Lab Interpretation (test Abnormal code = 49360-8) [facility] random [id number] 19:02:00 Test Item Value Reference Range Interpretation Comments Protein, Urine (test code 212 mg/dL 0-14 H = 2888-6) ISSA (test code = ISSA) Thermostat Maker ID - [id number] ID - [id number] Lab Interpretation (test Abnormal code = 32009-5) [facility]Protein, random [id number] 19:02:00 Test Item Value Reference Range Interpretation Comments Protein, Urine (test code 212 mg/dL 0-14 H = 2888-6) ISSA (test code = ISSA) Thermostat Maker ID - [id number] ID - [id number] Lab Interpretation (test Abnormal code = 99753-1) [facility], random [id number] 19:02:00 Test Item Value Reference Range Interpretation Comments Protein, Urine (test code 212 mg/dL 0-14 H = 2888-6) ISSA (test code = ISSA) Thermostat Maker ID - [id number] ID - [id number] Lab Interpretation (test Abnormal code = 89594-7) [facility] random [id number] 19:02:00 Test Item Value Reference Range Interpretation Comments Protein, Urine (test code 212 mg/dL 0-14 H = 2888-6) ISSA (test code = ISSA) Thermostat Maker ID - [id number] ID - [id number] Lab Interpretation (test Abnormal code = 77560-6) [facility], random [id number] 19:02:00 Test Item Value Reference Range Interpretation Comments Protein, Urine (test code 212 mg/dL 0-14 H = 2888-6) ISSA (test code = ISSA) Thermostat Maker ID - [id number] ID - [id number] Lab Interpretation (test Abnormal code = 75507-5) [facility] random [id number] 19:02:00 Test Item Value Reference Range Interpretation Comments Protein, Urine (test code 212 mg/dL 0-14 H = 2888-6) ISSA (test code = ISSA) Thermostat Maker ID - [id number] ID - [id number] Lab Interpretation (test Abnormal code = 75539-9) [facility]OTE[facility], RANDOM [id number] 19:02:00 Test Item Value Reference Range Interpretation Comments PROTEIN, URINE (BEAKER) (test code 212 mg/dL 0-14 H = 1569) Thermostat Maker ID - [id number] ID - [id number], random [id number] 18:49:00 Test Item Value Reference Range Interpretation Comments Creatinine, Ur 23.8 mg/dL (test code = 2161-8) ISSA (test code = Reference Range: No ISSA) NormalsOperator ID - [id number] [facility]Creatinine, random [id number] 18:49:00 Test Item Value Reference Range Interpretation Comments Creatinine, Ur 23.8 mg/dL (test code = 2161-8) ISSA (test code = Reference Range: No ISSA) NormalsOperator ID - [id number] [facility]Creatinine, random [id number] 18:49:00 Test Item Value Reference Range Interpretation Comments Creatinine, Ur 23.8 mg/dL (test code = 2161-8) ISSA (test code = Reference Range: No ISSA) NormalsOperator ID - [id number] [facility]Creat[facility], random [id number] 18:49:00 Test Item Value Reference Range Interpretation Comments Creatinine, Ur 23.8 mg/dL (test code = 2161-8) ISSA (test code = Reference Range: No ISSA) NormalsOperator ID - [id number] [facility]Creat[facility], random [id number] 18:49:00 Test Item Value Reference Range Interpretation Comments Creatinine, Ur 23.8 mg/dL (test code = 2161-8) ISSA (test code = Reference Range: No ISSA) NormalsOperator ID - [id number] [facility]Creat[facility], random [id number] 18:49:00 Test Item Value Reference Range Interpretation Comments Creatinine, Ur 23.8 mg/dL (test code = 2161-8) ISSA (test code = Reference Range: No ISSA) NormalsOperator ID - [id number] [facility]Creat[facility], random [id number] 18:49:00 Test Item Value Reference Range Interpretation Comments Creatinine, Ur 23.8 mg/dL (test code = 2161-8) ISSA (test code = Reference Range: No ISSA) NormalsOperator ID - [id number] [facility] HospitalCREATININE, RANDOM [id number] 18:49:00 Test Item Value Reference Range Interpretation Comments CREATININE URINE (BEAKER) (test 23.8 mg/dL code = 375) Reference Range: No NormalsOperator ID - [id number], random urine 2020-09-23 18:43:00 Test Item Value Reference Range Interpretation Comments ChlorideUr (test 117 meq/L code = 97251-7) ISSA (test code = Reference Range: No ISSA) NormalsOperator ID - [id number] [facility] HospitalPotassium, random [id number] 18:43:00 Test Item Value Reference Range Interpretation Comments Potassium Urine 21.5 meq/L (test code = 2828-2) ISSA (test code = Reference Range: No ISSA) NormalsOperator ID - [id number] [facility] [id number] 18:43:00 Test Item Value Reference Range Interpretation Comments Sodium Urine (test 113 meq/L code = 2955-3) ISSA (test code = Reference Range: No ISSA) NormalsOperator ID - [id number] [facility] HospitalChloride, random [id number] 18:43:00 Test Item Value Reference Range Interpretation Comments ChlorideUr (test 117 meq/L code = 21422-1) ISSA (test code = Reference Range: No ISSA) NormalsOperator ID - [id number] [facility]Potassium, random [id number] 18:43:00 Test Item Value Reference Range Interpretation Comments Potassium Urine 21.5 meq/L (test code = 2828-2) ISSA (test code = Reference Range: No ISSA) NormalsOperator ID - [id number] [facility], random [id number] 18:43:00 Test Item Value Reference Range Interpretation Comments Sodium Urine (test 113 meq/L code = 2955-3) ISSA (test code = Reference Range: No ISSA) NormalsOperator ID - [id number] [facility]Chloride, random [id number] 18:43:00 Test Item Value Reference Range Interpretation Comments ChlorideUr (test 117 meq/L code = 39385-1) ISSA (test code = Reference Range: No ISSA) NormalsOperator ID - [id number] [facility]Potassium, random [id number] 18:43:00 Test Item Value Reference Range Interpretation Comments Potassium Urine 21.5 meq/L (test code = 2828-2) ISSA (test code = Reference Range: No ISSA) NormalsOperator ID - [id number] [facility], random [id number] 18:43:00 Test Item Value Reference Range Interpretation Comments Sodium Urine (test 113 meq/L code = 2955-3) ISSA (test code = Reference Range: No ISSA) NormalsOperator ID - [id number] [facility]Chloride, random [id number] 18:43:00 Test Item Value Reference Range Interpretation Comments ChlorideUr (test 117 meq/L code = 18471-6) ISSA (test code = Reference Range: No ISSA) NormalsOperator ID - [id number] [facility]Potassium, random [id number] 18:43:00 Test Item Value Reference Range Interpretation Comments Potassium Urine 21.5 meq/L (test code = 2828-2) ISSA (test code = Reference Range: No ISSA) NormalsOperator ID - [id number] [facility], random [id number] 18:43:00 Test Item Value Reference Range Interpretation Comments Sodium Urine (test 113 meq/L code = 2955-3) ISSA (test code = Reference Range: No ISSA) NormalsOperator ID - [id number] [facility]Ch[facility]ide, random [id number] 18:43:00 Test Item Value Reference Range Interpretation Comments ChlorideUr (test 117 meq/L code = 73696-1) ISSA (test code = Reference Range: No ISSA) NormalsOperator ID - [id number] [facility]Potassium, random [id number] 18:43:00 Test Item Value Reference Range Interpretation Comments Potassium Urine 21.5 meq/L (test code = 2828-2) ISSA (test code = Reference Range: No ISSA) NormalsOperator ID - [id number] [facility], random [id number] 18:43:00 Test Item Value Reference Range Interpretation Comments Sodium Urine (test 113 meq/L code = 2955-3) ISSA (test code = Reference Range: No ISSA) NormalsOperator ID - [id number] [facility]Ch[facility]ide, random [id number] 18:43:00 Test Item Value Reference Range Interpretation Comments ChlorideUr (test 117 meq/L code = 56021-4) ISSA (test code = Reference Range: No ISSA) NormalsOperator ID - [id number] [facility]Potassium, random [id number] 18:43:00 Test Item Value Reference Range Interpretation Comments Potassium Urine 21.5 meq/L (test code = 2828-2) ISSA (test code = Reference Range: No ISSA) NormalsOperator ID - [id number] [facility], random [id number] 18:43:00 Test Item Value Reference Range Interpretation Comments Sodium Urine (test 113 meq/L code = 2955-3) ISSA (test code = Reference Range: No ISSA) NormalsOperator ID - [id number] [facility]Ch[facility], random [id number] 18:43:00 Test Item Value Reference Range Interpretation Comments ChlorideUr (test 117 meq/L code = 09596-3) ISSA (test code = Reference Range: No ISSA) NormalsOperator ID - [id number] [facility]Potassium, random [id number] 18:43:00 Test Item Value Reference Range Interpretation Comments Potassium Urine 21.5 meq/L (test code = 2828-2) ISSA (test code = Reference Range: No ISSA) NormalsOperator ID - [id number] [facility], random [id number] 18:43:00 Test Item Value Reference Range Interpretation Comments Sodium Urine (test 113 meq/L code = 2955-3) ISSA (test code = Reference Range: No ISSA) NormalsOperator ID - [id number] [facility] HospitalCHLORIDE, RANDOM [id number] 18:43:00 Test Item Value Reference Range Interpretation Comments CHLORIDE URINE (BEAKER) (test code 117 meq/L = 682) Reference Range: No NormalsOperator ID - [id number], RANDOM URINE 2020-09-23 18:43:00 Test Item Value Reference Range Interpretation Comments POTASSIUM URINE (BEAKER) (test 21.5 meq/L code = 195) Reference Range: No NormalsOperator ID - [id number], RANDOM [id number] 18:43:00 Test Item Value Reference Range Interpretation Comments SODIUM URINE (BEAKER) (test code = 113 meq/L 243) Reference Range: No NormalsOperator ID - [id number] w/Microscopic + Reflex to [id number] 17:44:00 Test Item Value Reference Range Interpretation Comments Color, UA (test code = Yellow 5778-6) Clarity, UA (test code = Clear 5767-9) Specific [place], UA 1.020 1.001-1.035 (test code = 5811-5) pH, UA (test code = 7.0 5.0-8.0 5803-2) Protein, UA (test code = 100 mg/dL Negative A 24209-2) Glucose, UA (test code = 100 mg/dL Negative A 365) Ketones, UA (test code = Negative Negative 2514-8) Bilirubin, UA (test code Negative Negative = 44958-9) Blood, UA (test code = Trace Negative A 06549-4) Nitrite, UA (test code = Negative Negative 5802-4) Leukocytes, UA (test Negative Negative code = 5799-2) Urobilinogen, UA (test 0.2 mg/dL 0.2-1 code = 02058-5) Bacteria, UA (test code None Seen = 75923-2) RBC, UA (test code = <5 See_Comment [Autom ated message] 679-7) The system [employer] generated this result transmit josé luis reference range : /HPF. The refer ence range was not u sed to interpret th is result as normal/abnormal . WBC, UA (test code = None Seen See_Comment [Autom ated message] 53656-4) The system [employer] generated this result transmit josé luis reference range : /HPF. The refer ence range was not u sed to interpret th is result as normal/abnormal . SQUAMOUS EPITHELIAL <5 See_Comment [Automa josé luis message] (test code = 43769-1) The sy stem which generated this result transmit josé luis reference range : /HPF. The refer ence range was not u sed to interpret th is result as normal/abnormal . Specimen Source (test code = 2795) Lab Interpretation (test Abnormal code = 90624-1) [facility]Urinalysis w/Microscopic + Reflex to Culture 2020-09-23 17:44:00 Test Item Value Reference Range Interpretation Comments Color, UA (test code = Yellow 5778-6) Clarity, UA (test code = Clear 5767-9) Specific [place], UA 1.020 1.001-1.035 (test code = 5811-5) pH, UA (test code = 7.0 5.0-8.0 5803-2) Protein, UA (test code = 100 mg/dL Negative A 83727-1) Glucose, UA (test code = 100 mg/dL Negative A 365) Ketones, UA (test code = Negative Negative 2514-8) Bilirubin, UA (test code Negative Negative = 03079-6) Blood, UA (test code = Trace Negative A 17938-8) Nitrite, UA (test code = Negative Negative 5802-4) Leukocytes, UA (test Negative Negative code = 5799-2) Urobilinogen, UA (test 0.2 mg/dL 0.2-1 code = 93044-6) Bacteria, UA (test code None Seen = 48247-2) RBC, UA (test code = <5 See_Comment [Autom ated message] 799-7) The system [employer] generated this result transmit josé luis reference range : /HPF. The refer ence range was not u sed to interpret th is result as normal/abnormal . WBC, UA (test code = None Seen See_Comment [Autom ated message] 98963-0) The system [employer] generated this result transmit josé luis reference range : /HPF. The refer ence range was not u sed to interpret th is result as normal/abnormal . SQUAMOUS EPITHELIAL <5 See_Comment [Automa josé luis message] (test code = 61478-0) The sy stem which generated this result transmit josé luis reference range : /HPF. The refer ence range was not u sed to interpret th is result as normal/abnormal . Specimen Source (test code = 2795) Lab Interpretation (test Abnormal code = 40899-9) [facility] 2020-09-23 17:44:00 Test Item Value Reference Range Interpretation Comments Color, UA (test code = Yellow 5778-6) Clarity, UA (test code = Clear 5767-9) Specific [place], UA 1.020 1.001-1.035 (test code = 5811-5) pH, UA (test code = 7.0 5.0-8.0 5803-2) Protein, UA (test code = 100 mg/dL Negative A 45865-1) Glucose, UA (test code = 100 mg/dL Negative A 365) Ketones, UA (test code = Negative Negative 2514-8) Bilirubin, UA (test code Negative Negative = 82421-4) Blood, UA (test code = Trace Negative A 33213-4) Nitrite, UA (test code = Negative Negative 5802-4) Leukocytes, UA (test Negative Negative code = 5799-2) Urobilinogen, UA (test 0.2 mg/dL 0.2-1 code = 36104-1) Bacteria, UA (test code None Seen = 35288-3) RBC, UA (test code = <5 See_Comment [Autom ated message] 799-7) The system [employer] generated this result transmit josé luis reference range : /HPF. The refer ence range was not u sed to interpret th is result as normal/abnormal . WBC, UA (test code = None Seen See_Comment [Autom ated message] 39879-6) The system [employer] generated this result transmit josé luis reference range : /HPF. The refer ence range was not u sed to interpret th is result as normal/abnormal . SQUAMOUS EPITHELIAL <5 See_Comment [Automa josé luis message] (test code = 63694-8) The sy stem which generated this result transmit josé luis reference range : /HPF. The refer ence range was not u sed to interpret th is result as normal/abnormal . Specimen Source (test code = 2795) Lab Interpretation (test Abnormal code = 53486-7) [facility]lex [facility] Culture 2020-09-23 17:44:00 Test Item Value Reference Range Interpretation Comments Color, UA (test code = Yellow 5778-6) Clarity, UA (test code = Clear 5767-9) Specific [place], UA 1.020 1.001-1.035 (test code = 5811-5) pH, UA (test code = 7.0 5.0-8.0 5803-2) Protein, UA (test code = 100 mg/dL Negative A 02235-1) Glucose, UA (test code = 100 mg/dL Negative A 365) Ketones, UA (test code = Negative Negative 2514-8) Bilirubin, UA (test code Negative Negative = 19992-9) Blood, UA (test code = Trace Negative A 89246-4) Nitrite, UA (test code = Negative Negative 5802-4) Leukocytes, UA (test Negative Negative code = 5799-2) Urobilinogen, UA (test 0.2 mg/dL 0.2-1 code = 69476-9) Bacteria, UA (test code None Seen = 73465-7) RBC, UA (test code = <5 See_Comment [Autom ated message] 799-7) The system [employer] generated this result transmit josé luis reference range : /HPF. The refer ence range was not u sed to interpret th is result as normal/abnormal . WBC, UA (test code = None Seen See_Comment [Autom ated message] 95874-8) The system [employer] generated this result transmit josé luis reference range : /HPF. The refer ence range was not u sed to interpret th is result as normal/abnormal . SQUAMOUS EPITHELIAL <5 See_Comment [Automa josé luis message] (test code = 84356-0) The sy stem which generated this result transmit josé luis reference range : /HPF. The refer ence range was not u sed to interpret th is result as normal/abnormal . Specimen Source (test code = 2795) Lab Interpretation (test Abnormal code = 63104-8) [facility] Reflex [facility] Culture 2020-09-23 17:44:00 Test Item Value Reference Range Interpretation Comments Color, UA (test code = Yellow 5778-6) Clarity, UA (test code = Clear 5767-9) Specific [place], UA 1.020 1.001-1.035 (test code = 5811-5) pH, UA (test code = 7.0 5.0-8.0 5803-2) Protein, UA (test code = 100 mg/dL Negative A 17548-0) Glucose, UA (test code = 100 mg/dL Negative A 365) Ketones, UA (test code = Negative Negative 2514-8) Bilirubin, UA (test code Negative Negative = 84477-2) Blood, UA (test code = Trace Negative A 75619-5) Nitrite, UA (test code = Negative Negative 5802-4) Leukocytes, UA (test Negative Negative code = 5799-2) Urobilinogen, UA (test 0.2 mg/dL 0.2-1.0 code = 52903-0) Bacteria, UA (test code None Seen = 40320-2) RBC, UA (test code = <5 See_Comment [Autom ated message] 799-7) The system [employer] generated this result transmit josé luis reference range : /HPF. The refer ence range was not u sed to interpret th is result as normal/abnormal . WBC, UA (test code = None Seen See_Comment [Autom ated message] 87672-6) The system [employer] generated this result transmit josé luis reference range : /HPF. The refer ence range was not u sed to interpret th is result as normal/abnormal . SQUAMOUS EPITHELIAL <5 See_Comment [Automa josé luis message] (test code = 16972-1) The sy stem which generated this result transmit josé luis reference range : /HPF. The refer ence range was not u sed to interpret th is result as normal/abnormal . Specimen Source (test code = 2795) Lab Interpretation (test Abnormal code = 44553-8) [facility] Reflex [facility] Culture 2020-09-23 17:44:00 Test Item Value Reference Range Interpretation Comments Color, UA (test code = Yellow 5778-6) Clarity, UA (test code = Clear 5767-9) Specific [place], UA 1.020 1.001-1.035 (test code = 5811-5) pH, UA (test code = 7.0 5.0-8.0 5803-2) Protein, UA (test code = 100 mg/dL Negative A 39126-8) Glucose, UA (test code = 100 mg/dL Negative A 365) Ketones, UA (test code = Negative Negative 4-8) Bilirubin, UA (test code Negative Negative = 35363-1) Blood, UA (test code = Trace Negative A 62091-7) Nitrite, UA (test code = Negative Negative 5802-4) Leukocytes, UA (test Negative Negative code = 5799-2) Urobilinogen, UA (test 0.2 mg/dL 0.2-1.0 code = 66236-9) Bacteria, UA (test code None Seen = 19435-4) RBC, UA (test code = <5 See_Comment [Autom ated message] 799-7) The system The [employer] generated this result transmit josé luis reference range : /HPF. The refer ence range was not u sed to interpret th is result as normal/abnormal . WBC, UA (test code = None Seen See_Comment [Autom ated message] 23555-5) The system [employer] generated this result transmit josé luis reference range : /HPF. The refer ence range was not u sed to interpret th is result as normal/abnormal . SQUAMOUS EPITHELIAL <5 See_Comment [Automa josé luis message] (test code = 33640-1) The sy stem which generated this result transmit josé luis reference range : /HPF. The refer ence range was not u sed to interpret th is result as normal/abnormal . Specimen Source (test code = 2795) Lab Interpretation (test Abnormal code = 94279-6) [facility] Reflex [facility] Culture 2020-09-23 17:44:00 Test Item Value Reference Range Interpretation Comments Color, UA (test code = Yellow 5778-6) Clarity, UA (test code = Clear 5767-9) Specific [place], UA 1.020 1.001-1.035 (test code = 5811-5) pH, UA (test code = 7.0 5.0-8.0 5803-2) Protein, UA (test code = 100 mg/dL Negative A 64848-0) Glucose, UA (test code = 100 mg/dL Negative A 365) Ketones, UA (test code = Negative Negative 4-8) Bilirubin, UA (test code Negative Negative = 01231-3) Blood, UA (test code = Trace Negative A 90544-3) Nitrite, UA (test code = Negative Negative 5802-4) Leukocytes, UA (test Negative Negative code = 5799-2) Urobilinogen, UA (test 0.2 mg/dL 0.2-1.0 code = 98441-1) Bacteria, UA (test code None Seen = 53609-2) RBC, UA (test code = <5 See_Comment [Autom ated message] 799-7) The system [employer] generated this result transmit josé luis reference range : /HPF. The refer ence range was not u sed to interpret th is result as normal/abnormal . WBC, UA (test code = None Seen See_Comment [Autom ated message] 53983-9) The system The [employer] Report generated this result transmit josé luis reference range : /HPF. The refer ence range was not u sed to interpret th is result as normal/abnormal . SQUAMOUS EPITHELIAL <5 See_Comment [Automa josé luis message] (test code = 99800-7) The sy stem which generated this result transmit josé luis reference range : /HPF. The refer ence range was not u sed to interpret th is result as normal/abnormal . Specimen Source (test code = 2795) Lab Interpretation (test Abnormal code = 80345-1) [facility] UR[facility] [id number] 17:44:00 Test Item Value Reference Range Interpretation [...] 1663) SOURCE(BEAKER) (test code = 2795) POCT-GLUCOSE [id number] 16:33:00 Test Item Value Reference Range Interpretation Comments POC-GLUCOSE METER 232 mg/dL 70-110 H : TESTED A T [facility] 1317 (BEAKER) (test code [address], = 1538) [facility] 77 478: Thermostat Maker/Techni cornelia ID = [id number] for Mily Coy 2D Echo W/Doppler(CW/PW/Color)2020-09-23 14:27:41Ejection FractionSLEH ECHO HEARTLAB MKCKESSON CPACSInterface, External Ris In - 09/23/2020 2:27 PM C DTTransthoracic Echocardiography Report (TTE) Demographics Patient Name FRANDY FORD Date of Study 09/23/2020 MERRITT Gender Male Visit Number [id number] Race Room Number 428 Number Date of 1975 Referring Physician Age 44 year(s) 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 [...] Gradient: 2.05 mmHg Estimated PASP: 47.75 [facility] W/Doppler(CW/PW/Color)2020-09-23 14:27:41Ejection FractionSLEH ECHO HEARTLAB MKCKESSON CPACSInterface, External Ris In - 09/23/2020 2:27 PM CDTTransthoracic Echocardiography Report (TTE) Demographics Patient Name FRANDY FORD Date of Study 09/23/2020 MERRITT Gender Male Visit Number [id number] Race Room Number 428 Number Date of 1975 Referring Physician Age 44 year(s) Precast Worker Liberty Morales [facility] Interpr eting Radha Chung, Physician . 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 Procedure Type of [...] Peak Gradient: 2.05 mmHg Estimated PASP: 47.75 mmHgS[facility]2D Echo W/Doppler(CW/PW/Color)2020-09-23 14:27:41Ejection FractionSLE ECHO HEARTLAB MKCKESSON CPACSInterface, External Ris In - 09/23/2020 2:27 PM CDTTransthoracic Echocardiography Report (TTE) Demographics Patient Name FRANDY FORD Date of Study 09/23/2020 MERRITT Gender Male Visit Number [id number] Race Room Number 428 Number Date of 1975 Referring Physician Age 44 year(s) Precast Worker Liberty Morales [facility] Interpr etiallison Chung, Physician . Procedure Type of Study [...] Peak Gradient: 2.05 mmHg Estimated PASP: 47.75 mmHgS[facility] Hospital2D Echo W/Doppler(CW/PW/Color)2020-09-23 14:27:41Ejection FractionSLE ECHO HEARTLAB [facility]2D Echo W/Doppler(CW/PW/Color) 2020-09-23 14:27:41Ejection FractionSLE ECHO HEARTLAB [facility]2D Echo W/Doppler(CW/PW/Color)2020-09-23 14:27:41Ejection FractionSLE ECHO [facility]LAB [facility] [id number] 11:54:00 Test Item Value Reference Range Interpretation Comments POC-GLUCOSE METER 133 mg/dL 70-110 H : TESTED A T [facility] 1317 (BEMARTY) (test code [address], = 1538) [facility] 77 478: Thermostat Maker/Techni cornelia ID = [id number] for Mily Coy, FOOT, MIN 3 VIEWS, [id number] 08:48:00Reason for exam:->foot wound [facility] 1975 Sex: MFINAL [...] LacyMDReport Verified Date/Time: 09/23/2020 08:48:33 Reading Location: [facility] Radiology Reading Room POCT-GLUCOSE METER 2020-09-23 08:11:00 Test Item Value Reference Range Interpretation Comments POC-GLUCOSE METER 91 mg/dL 70-110 : TESTED A T [facility] [address]17 (BEAKER) (test code = [address], 1538) [facility] 77 478: Thermostat Maker/Techni cornelia ID = [id number] for Mily Coy [id number] 08:04:00 Test Item Value Reference Range Interpretation Comments Phosphorus (test code = 3.5 mg/dL 2.5-4.5 2777-1) ISSA (test code = ISSA) Thermostat Maker ID - [id number] Lab Interpretation (test Normal code = 70241-7) [facility] 08:04:00 Test Item Value Reference Range Interpretation Comments Phosphorus (test code = 3.5 mg/dL 2.5-4.5 2777-1) ISSA (test code = ISSA) Thermostat Maker ID - [id number] Lab Interpretation (test Normal code = 64776-3) [facility] 08:04:00 Test Item Value Reference Range Interpretation Comments Phosphorus (test code = 3.5 mg/dL 2.5-4.5 2777-1) ISSA (test code = ISSA) Thermostat Maker ID - [id number] Lab Interpretation (test Normal code = 40716-4) [facility] 08:04:00 Test Item Value Reference Range Interpretation Comments Phosphorus (test code = 3.5 mg/dL 2.5-4.5 2777-1) ISSA (test code = ISSA) Thermostat Maker ID - [id number] Lab Interpretation (test Normal code = 20978-6) [facility] 08:04:00 Test Item Value Reference Range Interpretation Comments Phosphorus (test code = 3.5 mg/dL 2.5-4.5 2777-1) ISSA (test code = ISSA) Thermostat Maker ID - [id number] Lab Interpretation (test Normal code = 51998-8) [facility] 08:04:00 Test Item Value Reference Range Interpretation Comments Phosphorus (test code = 3.5 mg/dL 2.5-4.5 2777-1) ISSA (test code = ISSA) Thermostat Maker ID - [id number] Lab Interpretation (test Normal code = 63084-5) [facility] 08:04:00 Test Item Value Reference Range Interpretation Comments Phosphorus (test code = 3.5 mg/dL 2.5-4.5 2777-1) ISSA (test code = ISSA) Thermostat Maker ID - [id number] Lab Interpretation (test Normal code = 58538-7) [facility]US2021-[facility]-28 08:04:00 Test Item Value Reference Range Interpretation Comments PHOSPHORUS (BEAKER) (test code = 3.5 mg/dL 2.5-4.5 604) Thermostat Maker ID - [id number] METABOLIC [id number] 06:06:00 Test Item Value Reference Range Interpretation [...] S NOT APPLICABLE FOR DIALYSIS PATIEN TS. Thermostat Maker ID - [id number] ID - [id number] ID - [id number] ID - [id number] ID - [id number] ID - [id number] ID - [id number] ID - [id number] ID - [id number] ID - [id number] 05:56:00 Test Item Value Reference Range Interpretation Comments MAGNESIUM (BEAKER) (test code = 1.5 mg/dL 1.5-3.0 627) Thermostat Maker ID - [id number] ID - [id number] ID - [id number] ID - [id number] CBC W/PLT COUNT & AUTO [id number] 05:39:00 Test Item Value Reference Range Interpretation [...] PERCENT (BEAKER) (test code = 2801) POCT-GLUCOSE [id number] 20:58:00 Test Item Value Reference Range Interpretation Comments POC-GLUCOSE METER 126 mg/dL 70-110 H : TESTED A T [facility] [address] (BEAKER) (test code [address], = 1538) [facility] 77 478: Thermostat Maker/Techni cornelia ID = [id number] for Rachel Branham POCT-GLUCOSE [id number] 17:16:00 Test Item Value Reference Range Interpretation Comments POC-GLUCOSE METER 201 mg/dL 70-110 H : TESTED A T [facility] [address] (BEAKER) (test code [address], = 1538) [place] [address] 478: Thermostat Maker/Techni cornelia ID = [id number] for Mily Coy SARS-CoV2/RT-PCR (Asymptomatic ONLY)2020-09-22 12:08:00 Test Item Value Reference Range Interpretation Comments SARS-COV2/RT-PCR Negative Not Detected, Performanc e of the Xpert (test code = Negative, See Xpress 29320-3) external report SARS-CoV-2/F siddhartha/RSV test for linked [...] Fact Sh eet for Healthcare Prov iders: https://www.B[employer].Doorbot/ Documents/Xpert %20Xpress %26NPKS-FmD-4-F siddhartha-RSV/30 2-4508%20Rev.%2 0B%20HCP% 20Fact%20Sheet. pdf Fact Sheet for Healt hcare Patients: https://www.[employer].Doorbot/ Documents/Xpert %20Xpress %51IHYM-FyE-8-F siddhartha-RSV/30 2-4507%20Rev.%2 0B%20Pati ent%20Fact%20Sh eet.pdf SARS-COV-2 SLSL Performed at:[facility] PERFORMING LAB [place] [email or web address] (test code = Ignacio Nelson 54178-7) [place] [address] ph: [phone] [facility] (Asymptomatic ONLY)2020-09-22 12:08:00 Test Item Value Reference Range Interpretation Comments SARS-COV2/RT-PCR Negative Not Detected, Performanc e of the Xpert (test code = Negative, See Xpress 01248-7) external report SARS-CoV-2/F siddhartha/RSV test for linked [...] Fact Sh eet for Healthcare Prov iders: https://www.[employer].Doorbot/ Documents/Xpert %20Xpress %21FGTR-UcQ-6-F siddhartha-RSV/30 2-4508%20Rev.%2 0B%20HCP% 20Fact%20Sheet. pdf Fact Sheet for Healt hcare Patients: https://www.[employer].Doorbot/ Documents/Xpert %20Xpress %76TJPQ-PvY-7-F siddhartha-RSV/30 2-4507%20Rev.%2 0B%20Pati ent%20Fact%20Sh eet.pdf SARS-COV-2 SLSL Performed at:[facility] PERFORMING LAB [place] [id number] (test code = Ignacio Nelson 97733-0) [place] [address] ph: [phone] [facility] (Asymptomatic ONLY)2020-09-22 12:08:00 Test Item Value Reference Range Interpretation Comments SARS-COV2/RT-PCR Negative Not Detected, Performanc e of the Xpert (test code = Negative, See Xpress 81191-5) external report SARS-CoV-2/F siddhartha/RSV test for linked [...] Fact Sh eet for Healthcare Prov iders: https://www.[employer].Doorbot/ Documents/Xpert %20Xpress %29CZBD-DoP-8-F siddhartha-RSV/30 2-4508%20Rev.%2 0B%20HCP% 20Fact%20Sheet. pdf Fact Sheet for Healt hcare Patients: https://www.[employer].Doorbot/ Documents/Xpert %20Xpress %47YQLO-RqL-6-F siddhartha-RSV/30 2-4507%20Rev.%2 0B%20Pati ent%20Fact%20Sh eet.pdf SARS-COV-2 SLSL Performed at:[facility] PERFORMING LAB [place] Ho [id number] (test code = Ignacio Nelson 80537-8) [place], [place] [address] ph: [phone] [facility] (Asymptomatic ONLY)2020-09-22 12:08:00 Test Item Value Reference Range Interpretation Comments SARS-COV2/RT-PCR Negative Not Detected, Performanc e of the Xpert (test code = Negative, See Xpress 04145-0) external report SARS-CoV-2/F siddhartha/RSV test for linked [...] Fact Sh eet for Healthcare Prov iders: https://www.Liquavista/ Documents/Xpert %20Xpress %25BXTZ-BdK-2-F siddhartha-RSV/30 2-4508%20Rev.%2 0B%20HCP% 20Fact%20Sheet. pdf Fact Sheet for Healt hcare Patients: https://www.Liquavista/ Documents/Xpert %20Xpress %96XJAK-WcJ-6-F siddhartha-RSV/30 2-4507%20Rev.%2 0B%20Pati ent%20Fact%20Sh eet.pdf SARS-COV-2 SLSL Performed at:[facility] PERFORMING LAB [facility] [id number] (test code = Ignacio Nelson 72856-0) [place] [address] ph: [phone] [facility] (Asymptomatic ONLY)2020-09-22 12:08:00 Test Item Value Reference Range Interpretation Comments SARS-COV2/RT-PCR Negative Not Detected, Performanc e of the Xpert (test code = Negative, See Xpress 93251-9) external report SARS-CoV-2/F siddhartha/RSV test for linked [...] Fact Sh eet for Healthcare Prov iders: https://www.[employer]ync[employer].Doorbot/ Documents/Xpert %20Xpress %59HVTL-BnE-2-F siddhartha-RSV/30 2-4508%20Rev.%2 0B%20HCP% 20Fact%20Sheet. pdf Fact Sheet for Healt hcare Patients: https://www.Zyncroid.com/ Documents/Xpert %20Xpress %32AOIR-WnC-7-F siddhartha-RSV/30 24507%20Rev.%2 0B%20Pati ent%20Fact%20Sh eet.pdf SARS-COV-2 SLSL Performed at:[facility] PERFORMING LAB Amy [id number] (test code = Ignacio Nelson 83562-0) [place] [address] ph: [phone] [facility] (Asymptomatic ONLY)2020-09-22 12:08:00 Test Item Value Reference Range Interpretation Comments SARS-COV2/RT-PCR Negative Not Detected, Performanc e of the Xpert (test code = Negative, See Xpress 12029-7) external report SARS-CoV-2/F siddhartha/RSV test for linked [...] Fact Sh eet for Healthcare Prov iders: https://www.Liquavista/ Documents/Xpert %20Xpress %79ILDL-PkW-6-F siddhartha-RSV/30 2-4508%20Rev.%2 0B%20HCP% 20Fact%20Sheet. pdf Fact Sheet for Healt hcare Patients: https://www.Liqu[employer]ista/ Documents/Xpert %20Xpress %01TTXK-UbR-7-F siddhartha-RSV/30 2-4507%20Rev.%2 0B%20Pati ent%20Fact%20Sh eet.pdf SARS-COV-2 SLSL Performed at:[facility] PERFORMING LAB [place] [id number] (test code = Ignacio Nelson 42852-4) [place] [address] ph: [phone] [facility] (Asymptomatic ONLY)2020-09-22 12:08:00 Test Item Value Reference Range Interpretation Comments SARS-COV2/RT-PCR Negative Not Detected, Performanc e of the Xpert (test code = Negative, See Xpress 12314-6) external report SARS-CoV-2/F siddhartha/RSV test for linked [...] Fact Sh eet for Healthcare Prov iders: https://www.[employer].Doorbot/ Documents/Xpert %20Xpress %42UYWP-ZzP-1-F siddhartha-RSV/30 2-4508%20Rev.%2 0B%20HCP% 20Fact%20Sheet. pdf Fact Sheet for Healt hcare Patients: https://www.[employer].Doorbot/ Documents/Xpert %20Xpress %64RIIX-AoD-7-F siddhartha-RSV/30 2-4507%20Rev.%2 0B%20Pati ent%20Fact%20Sh eet.pdf SARS-COV-2 SLSL Performed at:[facility] PERFORMING LAB Amy [id number] (test code = Ignacio Nelson [address]21-3) [place] [address] ph: [phone] [facility] ([facility])2020-09-22 12:08:00 Test Item Value Reference Range Interpretation Comments SARS-COV2/RT-PCR Negative Not Detected, Performanc e of the Xpert (test code = Negative, See Xpress 4060627) external report SARS-CoV-2/F siddhartha/RSV test for linked test has only bee n established in nasopharyngeal swab specimens. Use of the Xpert Xpress SARS-CoV-2/Flu/ RSV test with other spec imen types has not b een assessed and pe rformance characteristics are unknown. As wi th any molecular test, mutations withi n the targeted geneti c regions identified by t iwll Xpert Xpress SARS-CoV-2/Flu/ RSV test could affect [...] sooner.Fact She et for Healthcare Prov iders: https://www.[employer].Doorbot/ Documents/Xpert %20Xpress %88TXBZ-ZoM-8-F siddhartha-RSV/30 2-4508%20Rev.%2 0B%20HCP% 20Fact%20Sheet. pdfFact Sheet for Healt hcare Patients: https://www.[employer].Doorbot/ Documents/Xpert %20Xpress %71HPML-NtZ-3-F siddhartha-RSV/30 2-4507%20Rev.%2 0B%20Pati ent%20Fact%20Sh eet.pdf SARS-COV-2 SLSL Performed at:[facility] PERFORMING LAB [place] [facility] (test code = Ignacio Nelson 2734243) [place] [address] ph: [phone] CBC W/PLT COUNT & AUTO [id number] 07:40:00 Test Item Value Reference Range Interpretation [...] H PERCENT (BEAKER) (test code = 2801) [id number]/[id number] 07:34:00 Test Item Value Reference Interpretation Comments [...] PTT (test code = 28.0 See_Comment Final 79199-0) Information (Auto Output) [Automated message] The system [...] valves. Lab Interpretation Abnormal (test code = 95767-3) [facility]/[id number] 07:34:00 Test Item Value Reference Interpretation Comments [...] PTT (test code = 28.0 See_Comment Final 90230-1) Information (Auto Output) [Automated message] The system [...] valves. Lab Interpretation Abnormal (test code = 92525-9) [id number]00 Test Item Value Reference Interpretation Comments [...] PTT (test code = 28.0 See_Comment Final 23886-1) Information (Auto Output) [Automated message] The system [...] valves. Lab Interpretation Abnormal (test code = 74820-4) [facility]X1410[facility]-77 07:34:00 Test Item Value Reference Interpretation Comments [...] PTT (test code = 28.0 See_Comment Final 57053-6) Information (Auto Output) [Automated message] The system [...] valves. Lab Interpretation Abnormal (test code = 05623-8) [facility][id number] 07:34:00 Test Item Value Reference Interpretation Comments [...] PTT (test code = 28.0 See_Comment Final 21241-9) Information (Auto Output) [Automated message] The system [...] valves. Lab Interpretation Abnormal (test code = 02725-7) [facility][id number] 07:34:00 Test Item Value Reference Interpretation Comments [...] PTT (test code = 28.0 See_Comment Final 56562-2) Information (Auto Output) [Automated message] The system [...] valves. Lab Interpretation Abnormal (test code = 39828-8) [facility][id number] 07:34:00 Test Item Value Reference Interpretation Comments [...] PTT (test code = 28.0 See_Comment Final 97314-5) Information (Auto Output) [Automated message] The system [...] valves. Lab Interpretation Abnormal (test code = 34186-7) [facility][id number] 07:34:00 Test Item Value Reference Range Interpretation Comments PROTIME (BEAKER) (test 14.2 seconds 9.3-12.0 H Final Information code = 759) (Auto Output) INR (BEAKER) (test 1.30 See_Comment Final Inf ormation code = 370) (Auto Output) [Automated mess age] The system [employer] generated this result transmit josé luis reference [...] 0-100 H (BEAKER) (test code = 700) [employer] ID - [id number] [id number] 07:29:00 Test Item Value Reference Range Interpretation Comments Troponin I (test code = 0.05 ng/mL 0-0.15 85456-5) ISSA (test code = ISSA) Troponin I [...] [email or web address] Lab Interpretation (test Normal code = 02856-2) [facility] [id number] 07:29:00 Test Item Value Reference Range Interpretation Comments Troponin I (test code = 0.05 ng/mL 0-0.15 59641-3) ISSA (test code = ISSA) Troponin I [...] acidosis, acute neurological disease, and persistent tachyarrhythmia.[facility] ID - [id number] Lab Interpretation (test Normal code = 20555-3) [facility] [id number] 07:29:00 Test Item Value Reference Range Interpretation Comments Troponin I (test code = 0.05 ng/mL 0-0.15 32411-3) ISSA (test code = ISSA) Troponin I [...] acidosis, acute neurological disease, and persistent tachyarrhythmia.[facility] ID - [id number] Lab Interpretation (test Normal code = 84886-1) [facility] [id number] 07:29:00 Test Item Value Reference Range Interpretation Comments Troponin I (test code = 0.05 ng/mL 0-0.15 70102-2) ISSA (test code = ISSA) Troponin I [...] acidosis, acute neurological disease, and persistent tachyarrhythmia.[facility] ID - [id number] Lab Interpretation (test Normal code = 28345-5) [facility] [id number] 07:29:00 Test Item Value Reference Range Interpretation Comments Troponin I (test code = 0.05 ng/mL 0.00-0.15 23924-7) ISSA (test code = ISSA) Troponin I [...] acidosis, acute neurological disease, and persistent tachyarrhythmia.[facility] ID - [id number] Lab Interpretation (test Normal code = 21708-4) [facility] [id number] 07:29:00 Test Item Value Reference Range Interpretation Comments Troponin I (test code = 0.05 ng/mL 0.00-0.15 36153-2) ISSA (test code = ISSA) Troponin I [...] acidosis, acute neurological disease, and persistent tachyarrhythmia.[facility] ID - [id number] Lab Interpretation (test Normal code = 34019-5) [facility] [id number] 07:29:00 Test Item Value Reference Range Interpretation Comments Troponin I (test code = 0.05 ng/mL 0.00-0.15 64402-4) ISSA (test code = ISSA) Troponin I [...] acidosis, acute neurological disease, and persistent tachyarrhythmia.[facility] ID - [id number] Lab Interpretation (test Normal code = 32769-2) [facility] [id number] 07:29:00 Test Item Value Reference Range Interpretation [...] failure, acidosis, acute neurological disease, and persistent tachyarrhythmia.[employer] ID - [id number] METABOLIC [id number] 07:25:00 Test Item Value Reference Range Interpretation [...] S NOT APPLICABLE FOR DIALYSIS PATIEN TS. [employer] ID - [id number] ID - [id number] ID - [id number] ID - [id number] ID - [id number] ID - [id number] ID - [id number] ID - [id number] ID - [id number] ID - [id number] ID - [id number] ID - [id number] ID - [id number], CHEST, 1 VIEW, NON [id number] 06:44:00Reason for exam:->SHORTNESS OF BREATHReason for exam:->CHEST PAINShould this be performed at the bedside?->Yes [facility]: FRANDY FORD : 1975 Sex: MFINAL REPORT [...] effusion. No pneumothorax.Mild cardiomegaly. Signed: Moose Petersen MDReport Verified Date/Time: 09/22/2020 06:44:53 0 6:44 AMXR chest 1 view portable / nkfbufm8313-26-65 06:44:00Interface, External Ris In - 09/22/2020 6:47 [...] cardiomegaly.Signed: Moose Petersen Verified Date/Time: 09/22/2020 06:44:53 [facility] klagoyo7508-68-41 06:44:00 Interface, External Ris In - 09/22/2020 [...] Signed: Moose Petersen Verified Date/Time: 09/22/2020 06:44:53 [facility] / yjjqxba5905-79-83 06:44:00 Interface, External Ris In - 09/22/2020 [...] Signed: Moose Petersen Verified Date/Time: 09/22/2020 06:44:53 [facility] / aldacmi7220-36-78 06:44:00 Interface, External Ris In - 09/22/2020 [...] Signed: Moose Petersen Verified Date/Time: 09/22/2020 06:44:53 [facility] Gzicqwgnjglcni4765-70-88 06:40:53 Test Item Value Reference Range Interpretation [...] 74 BPM.Abnormal conduction noted: LAFB.T waves abnormal. [place] is normal. Other findings include: prolonged QTc interval. Clinical Impression: abnormal ECG Lab Interpretation Abnormal (test code = 30734-7) [facility] Vdfdinpfjkudgd9886-55-79 06:40:53 Test Item Value Reference Range Interpretation [...] 74 BPM.Abnormal conduction noted: LAFB.T waves abnormal. [place] is normal. Other findings include: prolonged QTc interval. Clinical Impression: abnormal ECG Lab Interpretation Abnormal (test code = 92654-4) [facility] Rdiycuoceyolro0218-43-82 06:40:53 Test Item Value Reference Range Interpretation [...] 74 BPM.Abnormal conduction noted: LAFB.T waves abnormal. [place] is normal. Other findings include: prolonged QTc interval. Clinical Impression: abnormal ECG Lab Interpretation Abnormal (test code = 40581-3) [facility] Gvopwcflzfdphy7866-59-81 06:40:53 Test Item Value Reference Range Interpretation [...] 74 BPM.Abnormal conduction noted: LAFB.T waves abnormal. [place] is normal. Other findings include: prolonged QTc interval. Clinical Impression: abnormal ECG Lab Interpretation Abnormal (test code = 56283-0) [facility] Ofeegysxgaxcyr9973-39-34 06:40:53 Test Item Value Reference Range Interpretation [...] 74 BPM.Abnormal conduction noted: LAFB.T waves abnormal. [place] is normal. Other findings include: prolonged QTc interval. Clinical Impression: abnormal ECG Lab Interpretation Abnormal (test code = 66206-6) [facility] Xlplkkiojxrjlc7051-06-13 06:40:53 Test Item Value Reference Range Interpretation [...] 74 BPM.Abnormal conduction noted: LAFB.T waves abnormal. [place] is normal. Other findings include: prolonged QTc interval. Clinical Impression: abnormal ECG Lab Interpretation Abnormal (test code = 68435-1) [facility] Scxlajpioezqrf2436-90-37 06:40:53 Test Item Value Reference Range Interpretation Comments ISSA (test code = ISSA) aDvid Riddle MD 09/22/2020 6:48 AMECG/EKG Interpretation Date/Time: 09/22/2020 6:43 AMPerformed by: David Riddle MDAuthorized by: David Riddle MD The ECG was interpreted by ED physician. The ECG is interpreted as sinus rhythm. Ectopy noted: Pulmonary disease pattern. Rate is normal rate. Heart rate is 74 BPM.Abnormal conduction noted: LAFB.T waves abnormal. Vonore is normal. Other findings include: prolonged QTc interval. Clinical Impression: abnormal ECG Lab Interpretation Abnormal (test code = 99354-2) [facility]EKG-RSVMAKX3361-15-55 00:00:00Ordered by an unspecified provider.[facility]ONCFF2097[facility]-21 00:00:00 Ordered by an unspecified provider.[facility]K-SCANNED 2020-09-22 00:00:00Ordered by an unspecified provider.[facility]-DAWDNTS3845-73-85 00:00:00Ordered by an unspecified provider.[facility] Description: Natriuretic peptide B [Mass/volume] in Serum or Evnwdp0422-47-12 15:06:00 Test Item Value Reference Range Interpretation Comments B-Type Natriuretic Peptide (test 614.6 pg/mL 0.0-100.0 H code = 14721-9) [facility] Description: Natriuretic peptide B [Mass/volume] in Serum or Urqzky2439-24-44 15:06:00 Test Item Value Reference Range Interpretation Comments B-Type Natriuretic Peptide (test 614.6 pg/mL 0.0-100.0 H code = 48197-9) [facility] Description: Natriuretic peptide B [Mass/volume] in Serum or Ujvcio4133-20-55 15:06:00 Test Item Value Reference Range Interpretation Comments B-Type Natriuretic Peptide (test 614.6 pg/mL 0.0-100.0 H code = 07250-7) [facility] Description: Natriuretic peptide B [Mass/volume] in Serum or Bflahg0366-89-77 15:06:00 Test Item Value Reference Range Interpretation Comments B-Type Natriuretic Peptide (test 614.6 pg/mL 0.0-100.0 H code = 00249-0) [facility] Description: Natriuretic peptide B [Mass/volume] in Serum or Jddaat8774-62-75 15:06:00 Test Item Value Reference Range Interpretation Comments B-Type Natriuretic Peptide (test 614.6 pg/mL 0.0-100.0 H code = 15487-2) [facility] Description: Natriuretic peptide B [Mass/volume] in Serum or Ncaoas1764-15-39 15:06:00 Test Item Value Reference Range Interpretation Comments B-Type Natriuretic Peptide (test 614.6 pg/mL 0.0-100.0 H code = 20788-6) [facility] Description: Natriuretic peptide B [Mass/volume] in Serum or Flvaji6564-16-00 15:06:00 Test Item Value Reference Range Interpretation Comments B-Type Natriuretic Peptide (test 614.6 pg/mL 0.0-100.0 H code = 37608-6) [facility] Description: Natriuretic peptide B [Mass/volume] in Serum or Eruuoa1638-78-40 15:06:00 Test Item Value Reference Range Interpretation Comments B-Type Natriuretic Peptide (test 614.6 pg/mL 0.0-100.0 H code = 80652-5) [facility] Description: Natriuretic peptide B [Mass/volume] in Serum or Rprikh7369-71-61 15:06:00 Test Item Value Reference Range Interpretation Comments B-Type Natriuretic Peptide (test 614.6 pg/mL 0.0-100.0 H code = 12463-9) [facility] Description: Natriuretic peptide B [Mass/volume] in Serum or Frmaww6469-89-17 15:06:00 Test Item Value Reference Range Interpretation Comments B-Type Natriuretic Peptide (test 614.6 pg/mL 0.0-100.0 H code = 45502-3) [facility] Description: Natriuretic peptide B [Mass/volume] in Serum or Wrkejs9551-99-85 15:06:00 Test Item Value Reference Range Interpretation Comments B-Type Natriuretic Peptide (test 614.6 pg/mL 0.0-100.0 H code = 41278-4) [facility] Description: Natriuretic peptide B [Mass/volume] in Serum or Tcmgxt6091-16-20 15:06:00 Test Item Value Reference Range Interpretation Comments B-Type Natriuretic Peptide (test 614.6 pg/mL 0.0-100.0 H code = 13531-9) [facility] Description: Natriuretic peptide B [Mass/volume] in Serum or Plknab6894-24-95 15:06:00 Test Item Value Reference Range Interpretation Comments B-Type Natriuretic Peptide (test 614.6 pg/mL 0.0-100.0 H code = 68408-2) [facility] Description: Natriuretic peptide B [Mass/volume] in Serum or Flwvdy2314-07-73 15:06:00 Test Item Value Reference Range Interpretation Comments B-Type Natriuretic Peptide (test 614.6 pg/mL 0.0-100.0 H code = 33610-5) [facility] Description: Natriuretic peptide B [Mass/volume] in Serum or Xhaolo3372-03-25 15:06:00 Test Item Value Reference Range Interpretation Comments B-Type Natriuretic Peptide (test 614.6 pg/mL 0.0-100.0 H code = 35230-2) [facility] Description: Natriuretic peptide B [Mass/volume] in Serum or Rnrhye6598-68-78 15:06:00 Test Item Value Reference Range Interpretation Comments B-Type Natriuretic Peptide (test 614.6 pg/mL 0.0-100.0 H code = 85582-6) [facility] Description: Natriuretic peptide B [Mass/volume] in Serum or Qgftfi4689-26-24 15:06:00 Test Item Value Reference Range Interpretation Comments B-Type Natriuretic Peptide (test 614.6 pg/mL 0.0-100.0 H code = 81473-4) [facility] Description: Natriuretic peptide B [Mass/volume] in Serum or Yhfjls8416-01-82 15:06:00 Test Item Value Reference Range Interpretation Comments B-Type Natriuretic Peptide (test 614.6 pg/mL 0.0-100.0 H code = 68013-9) [facility] Description: Natriuretic peptide B [Mass/volume] in Serum or Gpzrxh2502-86-98 15:06:00 Test Item Value Reference Range Interpretation Comments B-Type Natriuretic Peptide (test 614.6 pg/mL 0.0-100.0 H code = 91211-0) [facility] Description: Natriuretic peptide B [Mass/volume] in Serum or Otfgxm6013-87-68 15:06:00 Test Item Value Reference Range Interpretation Comments B-Type Natriuretic Peptide (test 614.6 pg/mL 0.0-100.0 H code = 35304-4) [facility] Description: Lipid Hifgd0156-11-08 01:45:00 Test Item Value Reference Range Interpretation Comments Cholesterol, Total (test code = 207 mg/dL 100-199 H 2092-3) Triglycerides (test code = 2571-8) 126 mg/dL 0-149 HDL Cholesterol (test code = 37 mg/dL >39 L 5-9) VLDL Cholesterol Renuka (test code = 23 mg/dL 5-40 63849-6) LDL Chol Calc (NIH) (test code = 147 mg/dL 0-99 H 32836-5) Comment: (test code = 95503-3) [facility] Description: Lipid Cwosp3417-09-10 01:45:00 Test Item Value Reference Range Interpretation Comments Cholesterol, Total (test code = 207 mg/dL 100-199 H 2093-3) Triglycerides (test code = 2571-8) 126 mg/dL 0-149 HDL Cholesterol (test code = 37 mg/dL >39 L 2085-9) VLDL Cholesterol Renuka (test code = 23 mg/dL 5-40 66197-3) LDL Chol Calc (NIH) (test code = 147 mg/dL 0-99 H 85837-0) Comment: (test code = 71230-6) [facility] Description: Lipid Caphh0393-46-29 01:45:00 Test Item Value Reference Range Interpretation Comments Cholesterol, Total (test code = 207 mg/dL 100-199 H 2093-3) Triglycerides (test code = 2571-8) 126 mg/dL 0-149 HDL Cholesterol (test code = 37 mg/dL >39 L 2085-9) VLDL Cholesterol Renuka (test code = 23 mg/dL 5-40 45274-1) LDL Chol Calc (NIH) (test code = 147 mg/dL 0-99 H 91676-8) Comment: (test code = 31132-5) [facility] Description: Lipid Zkmqr6069-53-02 01:45:00 Test Item Value Reference Range Interpretation Comments Cholesterol, Total (test code = 207 mg/dL 100-199 H 2093-3) Triglycerides (test code = 2571-8) 126 mg/dL 0-149 HDL Cholesterol (test code = 37 mg/dL >39 L 2085-9) VLDL Cholesterol Renuka (test code = 23 mg/dL 5-40 71139-2) LDL Chol Calc (NIH) (test code = 147 mg/dL 0-99 H 41872-9) Comment: (test code = 73169-8) [facility] Description: Lipid Pwjvp9761-53-19 01:45:00 Test Item Value Reference Range Interpretation Comments Cholesterol, Total (test code = 207 mg/dL 100-199 H 2093-3) Triglycerides (test code = 2571-8) 126 mg/dL 0-149 HDL Cholesterol (test code = 37 mg/dL >39 L 2085-9) VLDL Cholesterol Renuka (test code = 23 mg/dL 5-40 00517-6) LDL Chol Calc (NIH) (test code = 147 mg/dL 0-99 H 34085-5) Comment: (test code = 92213-7) [facility] Description: Lipid Pwevl2464-86-19 01:45:00 Test Item Value Reference Range Interpretation Comments Cholesterol, Total (test code = 207 mg/dL 100-199 H 2093-3) Triglycerides (test code = 2571-8) 126 mg/dL 0-149 HDL Cholesterol (test code = 37 mg/dL >39 L 5-9) VLDL Cholesterol Renuka (test code = 23 mg/dL 5-40 59346-2) LDL Chol Calc (NIH) (test code = 147 mg/dL 0-99 H 80831-3) Comment: (test code = 52758-5) [facility] Description: Lipid Byfvz5567-96-86 01:45:00 Test Item Value Reference Range Interpretation Comments Cholesterol, Total (test code = 207 mg/dL 100-199 H 3-3) Triglycerides (test code = 2571-8) 126 mg/dL 0-149 HDL Cholesterol (test code = 37 mg/dL >39 L 5-9) VLDL Cholesterol Renuka (test code = 23 mg/dL 5-40 95474-4) LDL Chol Calc (NIH) (test code = 147 mg/dL 0-99 H 94010-2) Comment: (test code = 83606-6) [facility] Description: Lipid Xugik1390-70-74 01:45:00 Test Item Value Reference Range Interpretation Comments Cholesterol, Total (test code = 207 mg/dL 100-199 H 3-3) Triglycerides (test code = 2571-8) 126 mg/dL 0-149 HDL Cholesterol (test code = 37 mg/dL >39 L 5-9) VLDL Cholesterol Renuka (test code = 23 mg/dL 5-40 90952-8) LDL Chol Calc (NIH) (test code = 147 mg/dL 0-99 H 37697-4) Comment: (test code = 39312-4) [facility] Description: Lipid Lkuos0716-94-16 01:45:00 Test Item Value Reference Range Interpretation Comments Cholesterol, Total (test code = 207 mg/dL 100-199 H 2093-3) Triglycerides (test code = 2571-8) 126 mg/dL 0-149 HDL Cholesterol (test code = 37 mg/dL >39 L 5-9) VLDL Cholesterol Renuka (test code = 23 mg/dL 5-40 35089-2) LDL Chol Calc (NIH) (test code = 147 mg/dL 0-99 H 87385-5) Comment: (test code = 24315-8) [facility] Description: Lipid Twldf4628-58-22 01:45:00 Test Item Value Reference Range Interpretation Comments Cholesterol, Total (test code = 207 mg/dL 100-199 H 2093-3) Triglycerides (test code = 2571-8) 126 mg/dL 0-149 HDL Cholesterol (test code = 37 mg/dL >39 L 5-9) VLDL Cholesterol Renuka (test code = 23 mg/dL 5-40 45800-4) LDL Chol Calc (NIH) (test code = 147 mg/dL 0-99 H 16379-0) Comment: (test code = 95747-4) [facility] Description: Lipid Bhgid7676-76-47 01:45:00 Test Item Value Reference Range Interpretation Comments Cholesterol, Total (test code = 207 mg/dL 100-199 H 3-3) Triglycerides (test code = 2571-8) 126 mg/dL 0-149 HDL Cholesterol (test code = 37 mg/dL >39 L 5-9) VLDL Cholesterol Renuka (test code = 23 mg/dL 5-40 68748-7) LDL Chol Calc (NIH) (test code = 147 mg/dL 0-99 H 52205-3) Comment: (test code = 14318-9) [facility] Description: Lipid Mlpdl0808-70-92 01:45:00 Test Item Value Reference Range Interpretation Comments Cholesterol, Total (test code = 207 mg/dL 100-199 H 2093-3) Triglycerides (test code = 2571-8) 126 mg/dL 0-149 HDL Cholesterol (test code = 37 mg/dL >39 L 5-9) VLDL Cholesterol Renuka (test code = 23 mg/dL 5-40 33825-8) LDL Chol Calc (NIH) (test code = 147 mg/dL 0-99 H 54688-2) Comment: (test code = 23915-5) [facility] Description: Lipid Tnmrc6284-52-46 01:45:00 Test Item Value Reference Range Interpretation Comments Cholesterol, Total (test code = 207 mg/dL 100-199 H 2093-3) Triglycerides (test code = 2571-8) 126 mg/dL 0-149 HDL Cholesterol (test code = 37 mg/dL >39 L 2085-9) VLDL Cholesterol Renuka (test code = 23 mg/dL 5-40 33060-8) LDL Chol Calc (NIH) (test code = 147 mg/dL 0-99 H 76188-0) Comment: (test code = 97992-0) [facility] Description: Lipid Rbmjn8345-54-08 01:45:00 Test Item Value Reference Range Interpretation Comments Cholesterol, Total (test code = 207 mg/dL 100-199 H 2093-3) Triglycerides (test code = 2571-8) 126 mg/dL 0-149 HDL Cholesterol (test code = 37 mg/dL >39 L 2085-9) VLDL Cholesterol Renuka (test code = 23 mg/dL 5-40 79390-8) LDL Chol Calc (NIH) (test code = 147 mg/dL 0-99 H 03832-3) Comment: (test code = 73945-8) [facility] Description: Lipid Taoim1162-75-88 01:45:00 Test Item Value Reference Range Interpretation Comments Cholesterol, Total (test code = 207 mg/dL 100-199 H 2093-3) Triglycerides (test code = 2571-8) 126 mg/dL 0-149 HDL Cholesterol (test code = 37 mg/dL >39 L 2085-9) VLDL Cholesterol Renuka (test code = 23 mg/dL 5-40 65643-8) LDL Chol Calc (NIH) (test code = 147 mg/dL 0-99 H 95980-6) Comment: (test code = 70897-3) [facility] Description: Lipid Ifvsj1868-14-29 01:45:00 Test Item Value Reference Range Interpretation Comments Cholesterol, Total (test code = 207 mg/dL 100-199 H 2093-3) Triglycerides (test code = 2571-8) 126 mg/dL 0-149 HDL Cholesterol (test code = 37 mg/dL >39 L 2085-9) VLDL Cholesterol Renuka (test code = 23 mg/dL 5-40 69745-5) LDL Chol Calc (NIH) (test code = 147 mg/dL 0-99 H 01743-0) Comment: (test code = 90572-7) [facility] Description: Lipid Ykokr4347-64-57 01:45:00 Test Item Value Reference Range Interpretation Comments Cholesterol, Total (test code = 207 mg/dL 100-199 H 2093-3) Triglycerides (test code = 2571-8) 126 mg/dL 0-149 HDL Cholesterol (test code = 37 mg/dL >39 L 5-9) VLDL Cholesterol Renuka (test code = 23 mg/dL 5-40 35383-2) LDL Chol Calc (NIH) (test code = 147 mg/dL 0-99 H 70604-9) Comment: (test code = 24020-6) [facility] Description: Lipid Kiisj7984-81-27 01:45:00 Test Item Value Reference Range Interpretation Comments Cholesterol, Total (test code = 207 mg/dL 100-199 H 2093-3) Triglycerides (test code = 2571-8) 126 mg/dL 0-149 HDL Cholesterol (test code = 37 mg/dL >39 L 5-9) VLDL Cholesterol Renuka (test code = 23 mg/dL 5-40 36110-6) LDL Chol Calc (NIH) (test code = 147 mg/dL 0-99 H 66025-7) Comment: (test code = 58510-1) [facility] Description: Lipid Gwgez4935-23-53 01:45:00 Test Item Value Reference Range Interpretation Comments Cholesterol, Total (test code = 207 mg/dL 100-199 H 2093-3) Triglycerides (test code = 2571-8) 126 mg/dL 0-149 HDL Cholesterol (test code = 37 mg/dL >39 L 5-9) VLDL Cholesterol Renuka (test code = 23 mg/dL 5-40 45315-5) LDL Chol Calc (NIH) (test code = 147 mg/dL 0-99 H 79669-0) Comment: (test code = 21660-0) [facility] Description: Lipid Ksahd4374-51-48 01:45:00 Test Item Value Reference Range Interpretation Comments Cholesterol, Total (test code = 207 mg/dL 100-199 H 2093-3) Triglycerides (test code = 2571-8) 126 mg/dL 0-149 HDL Cholesterol (test code = 37 mg/dL >39 L 2084-9) VLDL Cholesterol Renuka (test code = 23 mg/dL 5-40 67299-0) LDL Chol Calc (NIH) (test code = 147 mg/dL 0-99 H 28628-3) Comment: (test code = 50322-2) [facility] Description: Comp. Metabolic Panel (14)2020-08-16 01:19:00 Test Item Value Reference Range Interpretation Comments Glucose (test code 424 mg/dL 65-99 H = 2345-7) BUN (test code = 27 mg/dL 6-24 H 3094-0) Creatinine (test 1.88 mg/dL 0.76-1.27 H code = 2160-0) eGFR If NonAfricn 42 >59 L Am (test code = mL/min/1.73 23974-5) eGFR If Africn Am 48 >59 L [facility] currently (test code = mL/min/1.73 reports eGFR in 00926-3) compliance with the current recommendations of the [employer]. [facility] [place] will update re porting as new guidelin es are published from the NKF-ASN Task force.
<br/ >Perfor med by:
[facility] [place] Kaur (HD)

BUN/Creatinine 14 9-20 Ratio (test code = 3097-3) Sodium (test code = 138 mmol/L 772-774 7347-2) Potassium (test 4.2 mmol/L 3.5-5.2 code = 2823-3) Chloride (test code 98 mmol/L 96-106 = 5-0) Carbon Dioxide, 28 mmol/L 20-29 Total (test code = 2027-9) Calcium (test code 8.4 mg/dL 8.7-10.2 L = 14871-0) Protein, Total 6.1 g/dL 6.0-8.5 (test code = 2885-2) Albumin (test code 3.0 g/dL 4.0-5.0 L = 1751-7) Globulin, Total 3.1 g/dL 1.5-4.5 (test code = 35426-3) A/G Ratio (test 1.0 1.2-2.2 L code = 1759-0) Bilirubin, Total 0.6 mg/dL 0.0-1.2 (test code = 1975-2) Alkaline 130 IU/L 48-121 H Phosphatase (test Pl ease note code = 6768-6) reference int erval change
<b r/>Perf ormed by:
[facility] (HD)

AST (SGOT) (test 15 IU/L 0-40 code = 1920-8) ALT (SGPT) (test 18 IU/L 0-44 code = 1742-6) [facility] Description: Comp. Metabolic Panel (14)2020-08-16 01:19:00 Test Item Value Reference Range Interpretation Comments Glucose (test code 424 mg/dL 65-99 H = 2345-7) BUN (test code = 27 mg/dL 6-24 H 3094-0) Creatinine (test 1.88 mg/dL 0.76-1.27 H code = 2160-0) eGFR If NonAfricn 42 >59 L Am (test code = mL/min/1.73 40992-2) eGFR If Africn Am 48 >59 L [facility] currently (test code = mL/min/1.73 [place] [address]-1) compliance with the current recommendations of the [employer]. [facility] [place] will update re porting as new guidelin es are published from the [employer]-ASN Task force.
<br/ >Perfor med by:
[facility] [place] [facility] (HD)

BUN/Creatinine 14 9-20 Ratio (test code = 3097-3) Sodium (test code = 138 mmol/L 766-254 8393-2) Potassium (test 4.2 mmol/L 3.5-5.2 code = 2823-3) Chloride (test code 98 mmol/L 96-106 = 5-0) Carbon Dioxide, 28 mmol/L 20-29 Total (test code = 2027-) Calcium (test code 8.4 mg/dL 8.7-10.2 L = 82169-9) Protein, Total 6.1 g/dL 6.0-8.5 (test code = 2885-2) Albumin (test code 3.0 g/dL 4.0-5.0 L = 1751-7) Globulin, Total 3.1 g/dL 1.5-4.5 (test code = 03526-8) A/G Ratio (test 1.0 1.2-2.2 L code = 1759-0) Bilirubin, Total 0.6 mg/dL 0.0-1.2 (test code = 1975-2) Alkaline 130 IU/L 48-121 H Phosphatase (test Pl ease note code = 6768-6) reference int erval change
<b r/>Perf ormed by:
[facility] ([place])

AST (SGOT) (test 15 IU/L 0-40 code = 1920-8) ALT (SGPT) (test 18 IU/L 0-44 code = 1742-6) [facility] Description: Comp. Metabolic Panel (14)2020-08-16 01:19:00 Test Item Value Reference Range Interpretation Comments Glucose (test code 424 mg/dL 65-99 H = 2345-7) BUN (test code = 27 mg/dL 6-24 H 3094-0) Creatinine (test 1.88 mg/dL 0.76-1.27 H code = 2160-0) eGFR If NonAfricn 42 >59 L Am (test code = mL/min/1.73 31354-1) eGFR If Africn Am 48 >59 L [facility] currently (test code = mL/min/1.73 [place] [address]-3) compliance with the current recommendations of the [employer]. [facility] [place] will update re porting as new guidelin es are published from the NKF-ASN Task force.
<br/ >Perfor med by:
[facility] [place] [facility] (HD)

BUN/Creatinine 14 9-20 Ratio (test code = 3097-3) Sodium (test code = 138 mmol/L 117-200 2619-2) Potassium (test 4.2 mmol/L 3.5-5.2 code = 2823-3) Chloride (test code 98 mmol/L 96-106 = 2075-0) Carbon Dioxide, 28 mmol/L 20-29 Total (test code = 2027-9) Calcium (test code 8.4 mg/dL 8.7-10.2 L = 62203-9) Protein, Total 6.1 g/dL 6.0-8.5 (test code = 2885-2) Albumin (test code 3.0 g/dL 4.0-5.0 L = 1751-7) Globulin, Total 3.1 g/dL 1.5-4.5 (test code = 94872-8) A/G Ratio (test 1.0 1.2-2.2 L code = 1759-0) Bilirubin, Total 0.6 mg/dL 0.0-1.2 (test code = 1975-2) Alkaline 130 IU/L 48-121 H Phosphatase (test Pl ease note code = 6768-6) reference int erval change
<b r/>Perf ormed by:
[facility] ([place])

AST (SGOT) (test 15 IU/L 0-40 code = 1920-8) ALT (SGPT) (test 18 IU/L 0-44 code = 1742-6) [facility] Description: Comp. Metabolic Panel (14)2020-08-16 01:19:00 Test Item Value Reference Range Interpretation Comments Glucose (test code 424 mg/dL 65-99 H = 2345-7) BUN (test code = 27 mg/dL 6-24 H 3094-0) Creatinine (test 1.88 mg/dL 0.76-1.27 H code = 2160-0) eGFR If NonAfricn 42 >59 L Am (test code = mL/min/1.73 72054-5) eGFR If Africn Am 48 >59 L [facility] currently (test code = mL/min/1.73 [place] [address]-5) compliance with the current recommendations of the [employer]. [facility] [place] will update re porting as new guidelin es are published from the [facility]F-ASN Task force.
<br/ >Perfor med by:
[facility] [place] [facility] (HD)

BUN/Creatinine 14 9-20 Ratio (test code = 3097-3) Sodium (test code = 138 mmol/L 805-013 3930-2) Potassium (test 4.2 mmol/L 3.5-5.2 code = 2823-3) Chloride (test code 98 mmol/L 96-106 = 2075-0) Carbon Dioxide, 28 mmol/L 20-29 Total (test code = 2027-9) Calcium (test code 8.4 mg/dL 8.7-10.2 L = 82290-1) Protein, Total 6.1 g/dL 6.0-8.5 (test code = 2885-2) Albumin (test code 3.0 g/dL 4.0-5.0 L = 1751-7) Globulin, Total 3.1 g/dL 1.5-4.5 (test code = 61912-6) A/G Ratio (test 1.0 1.2-2.2 L code = 1759-0) Bilirubin, Total 0.6 mg/dL 0.0-1.2 (test code = 1975-2) Alkaline 130 IU/L 48-121 H Phosphatase (test Pl ease note code = 6768-6) reference int erval change
<b r/>Perf ormed by:
[facility] ([place])

AST (SGOT) (test 15 IU/L 0-40 code = 1920-8) ALT (SGPT) (test 18 IU/L 0-44 code = 1742-6) [facility] Description: Comp. Metabolic Panel (14)2020-08-16 01:19:00 Test Item Value Reference Range Interpretation Comments Glucose (test code 424 mg/dL 65-99 H = 2345-7) BUN (test code = 27 mg/dL 6-24 H 3094-0) Creatinine (test 1.88 mg/dL 0.76-1.27 H code = 2160-0) eGFR If NonAfricn 42 >59 L Am (test code = mL/min/1.73 27365-6) eGFR If Africn Am 48 >59 L [facility] currently (test code = mL/min/1.73 [place] [address]-5) compliance with the current recommendations of the [employer]. [facility] [place] will update re porting as new guidelin es are published from the [facility]F-ASN Task force.
<br/ >Perfor med by:
[facility] [place] [facility] (HD)

BUN/Creatinine 14 9-20 Ratio (test code = 3097-3) Sodium (test code = 138 mmol/L 347-647 7946-2) Potassium (test 4.2 mmol/L 3.5-5.2 code = 2823-3) Chloride (test code 98 mmol/L 96-106 = 2075-0) Carbon Dioxide, 28 mmol/L 20-29 Total (test code = 2027-9) Calcium (test code 8.4 mg/dL 8.7-10.2 L = 59732-8) Protein, Total 6.1 g/dL 6.0-8.5 (test code = 2885-2) Albumin (test code 3.0 g/dL 4.0-5.0 L = 1751-7) Globulin, Total 3.1 g/dL 1.5-4.5 (test code = 71620-5) A/G Ratio (test 1.0 1.2-2.2 L code = 1759-0) Bilirubin, Total 0.6 mg/dL 0.0-1.2 (test code = 1974-2) Alkaline 130 IU/L 48-121 H Phosphatase (test Pl ease note code = 6768-6) reference int erval change
<b r/>Perf ormed by:
[facility] ([place])

AST (SGOT) (test 15 IU/L 0-40 code = 1920-8) ALT (SGPT) (test 18 IU/L 0-44 code = 1742-6) [facility] Description: Comp. Metabolic Panel (14)2020-08-16 01:19:00 Test Item Value Reference Range Interpretation Comments Glucose (test code 424 mg/dL 65-99 H = 2345-7) BUN (test code = 27 mg/dL 6-24 H 3094-0) Creatinine (test 1.88 mg/dL 0.76-1.27 H code = 2160-0) eGFR If NonAfricn 42 >59 L Am (test code = mL/min/1.73 72250-3) eGFR If Africn Am 48 >59 L [facility] currently (test code = mL/min/1.73 [place] [address]-7) compliance with the current recommendations of the [employer]. [facility] [place] will update re porting as new guidelin es are published from the [facility]F-ASN Task force.
<br/ >Perfor med by:
[facility] [place] [facility] (HD)

BUN/Creatinine 14 9-20 Ratio (test code = 3097-3) Sodium (test code = 138 mmol/L 846-131 0484-2) Potassium (test 4.2 mmol/L 3.5-5.2 code = 2823-3) Chloride (test code 98 mmol/L 96-106 = 2075-0) Carbon Dioxide, 28 mmol/L 20-29 Total (test code = 2027-) Calcium (test code 8.4 mg/dL 8.7-10.2 L = 55864-8) Protein, Total 6.1 g/dL 6.0-8.5 (test code = 2885-2) Albumin (test code 3.0 g/dL 4.0-5.0 L = 1751-7) Globulin, Total 3.1 g/dL 1.5-4.5 (test code = 70971-4) A/G Ratio (test 1.0 1.2-2.2 L code = 1759-0) Bilirubin, Total 0.6 mg/dL 0.0-1.2 (test code = 1975-2) Alkaline 130 IU/L 48-121 H Phosphatase (test Pl ease note code = 6768-6) reference int erval change
<b r/>Perf ormed by:
[facility] ([place])

AST (SGOT) (test 15 IU/L 0-40 code = 1920-8) ALT (SGPT) (test 18 IU/L 0-44 code = 1742-6) [facility] Description: Comp. Metabolic Panel (2020-08-16 01:19:00 Test Item Value Reference Range Interpretation Comments Glucose (test code 424 mg/dL 65-99 H = 2345-7) BUN (test code = 27 mg/dL 6-24 H 3094-0) Creatinine (test 1.88 mg/dL 0.76-1.27 H code = 2160-0) eGFR If NonAfricn 42 >59 L Am (test code = mL/min/1.73 24569-2) eGFR If Africn Am 48 >59 L [facility] currently (test code = mL/min/1.73 [place] [address]-3) compliance with the current recommendations of the [employer]. [facility] [place] will update re porting as new guidelin es are published from the NKF-ASN Task force.
<br/ >Perfor med by:
[facility] [place] [facility] (HD)

BUN/Creatinine 14 9-20 Ratio (test code = 3097-3) Sodium (test code = 138 mmol/L 398-882 5119-2) Potassium (test 4.2 mmol/L 3.5-5.2 code = 2823-3) Chloride (test code 98 mmol/L 96-106 = 2075-0) Carbon Dioxide, 28 mmol/L 20-29 Total (test code = 8-9) Calcium (test code 8.4 mg/dL 8.7-10.2 L = 18119-9) Protein, Total 6.1 g/dL 6.0-8.5 (test code = 2885-2) Albumin (test code 3.0 g/dL 4.0-5.0 L = 1751-7) Globulin, Total 3.1 g/dL 1.5-4.5 (test code = 80474-5) A/G Ratio (test 1.0 1.2-2.2 L code = 1759-0) Bilirubin, Total 0.6 mg/dL 0.0-1.2 (test code = 1975-2) Alkaline 130 IU/L 48-121 H Phosphatase (test Pl ease note code = 6768-6) reference int erval change
<b r/>Perf ormed by:
[facility] ([place])

AST (SGOT) (test 15 IU/L 0-40 code = 1920-8) ALT (SGPT) (test 18 IU/L 0-44 code = 1742-6) [facility] Description: Comp. Metabolic Panel (2020-08-16 01:19:00 Test Item Value Reference Range Interpretation Comments Glucose (test code 424 mg/dL 65-99 H = 2345-7) BUN (test code = 27 mg/dL 6-24 H 3094-0) Creatinine (test 1.88 mg/dL 0.76-1.27 H code = 2160-0) eGFR If NonAfricn 42 >59 L Am (test code = mL/min/1.73 91571-4) eGFR If Africn Am 48 >59 L [facility] currently (test code = mL/min/1.73 [place] [address]-3) compliance with the current recommendations of the [employer]. [facility] [place] will update re porting as new guidelin es are published from the [facility]F-ASN Task force.
<br/ >Perfor med by:
[facility] [place] [facility] (HD)

BUN/Creatinine 14 9-20 Ratio (test code = 3097-3) Sodium (test code = 138 mmol/L 079-538 3861-2) Potassium (test 4.2 mmol/L 3.5-5.2 code = 2823-3) Chloride (test code 98 mmol/L 96-106 = 2075-0) Carbon Dioxide, 28 mmol/L 20-29 Total (test code = 2027-) Calcium (test code 8.4 mg/dL 8.7-10.2 L = 10432-7) Protein, Total 6.1 g/dL 6.0-8.5 (test code = 2885-2) Albumin (test code 3.0 g/dL 4.0-5.0 L = 1751-7) Globulin, Total 3.1 g/dL 1.5-4.5 (test code = 89788-0) A/G Ratio (test 1.0 1.2-2.2 L code = 1759-0) Bilirubin, Total 0.6 mg/dL 0.0-1.2 (test code = 1975-2) Alkaline 130 IU/L 48-121 H Phosphatase (test Pl ease note code = 6768-6) reference int erval change
<b r/>Perf ormed by:
[facility] ([place])

AST (SGOT) (test 15 IU/L 0-40 code = 1920-8) ALT (SGPT) (test 18 IU/L 0-44 code = 1742-6) [facility] Description: Comp. Metabolic Panel (14)2020-08-16 01:19:00 Test Item Value Reference Range Interpretation Comments Glucose (test code 424 mg/dL 65-99 H = 2345-7) BUN (test code = 27 mg/dL 6-24 H 3094-0) Creatinine (test 1.88 mg/dL 0.76-1.27 H code = 2160-0) eGFR If NonAfricn 42 >59 L Am (test code = mL/min/1.73 27920-6) eGFR If Africn Am 48 >59 L [facility] currently (test code = mL/min/1.73 [place] [address]-9) compliance with the current recommendations of the [employer]. [facility] [place] will update re porting as new guidelin es are published from the [facility]F-ASN Task force.
<br/ >Perfor med by:
[facility] [place] [facility] (HD)

BUN/Creatinine 14 9-20 Ratio (test code = 3097-3) Sodium (test code = 138 mmol/L 376-226 1287-2) Potassium (test 4.2 mmol/L 3.5-5.2 code = 2823-3) Chloride (test code 98 mmol/L 96-106 = 2075-0) Carbon Dioxide, 28 mmol/L 20-29 Total (test code = 2027-) Calcium (test code 8.4 mg/dL 8.7-10.2 L = 71922-0) Protein, Total 6.1 g/dL 6.0-8.5 (test code = 2885-2) Albumin (test code 3.0 g/dL 4.0-5.0 L = 1751-7) Globulin, Total 3.1 g/dL 1.5-4.5 (test code = 99816-9) A/G Ratio (test 1.0 1.2-2.2 L code = 1759-0) Bilirubin, Total 0.6 mg/dL 0.0-1.2 (test code = 1974-2) Alkaline 130 IU/L 48-121 H Phosphatase (test Pl ease note code = 6768-6) reference int erval change
<b r/>Perf ormed by:
[facility] ([place])

AST (SGOT) (test 15 IU/L 0-40 code = 1920-8) ALT (SGPT) (test 18 IU/L 0-44 code = 1742-6) [facility] Description: Comp. Metabolic Panel (14)2020-08-16 01:19:00 Test Item Value Reference Range Interpretation Comments Glucose (test code 424 mg/dL 65-99 H = 2345-7) BUN (test code = 27 mg/dL 6-24 H 3094-0) Creatinine (test 1.88 mg/dL 0.76-1.27 H code = 2160-0) eGFR If NonAfricn 42 >59 L Am (test code = mL/min/1.73 94105-5) eGFR If Africn Am 48 >59 L [facility] currently (test code = mL/min/1.73 [place] 70471-3) compliance with the current recommendations of the [employer]. [facility] [place] will update re porting as new guidelin es are published from the [facility]F-ASN Task force.
<br/ >Perfor med by:
[facility] [place] [facility] (HD)

BUN/Creatinine 14 9-20 Ratio (test code = 3097-3) Sodium (test code = 138 mmol/L 065-058 3958-2) Potassium (test 4.2 mmol/L 3.5-5.2 code = 2823-3) Chloride (test code 98 mmol/L 96-106 = 5-0) Carbon Dioxide, 28 mmol/L 20-29 Total (test code = 2027-) Calcium (test code 8.4 mg/dL 8.7-10.2 L = 02618-8) Protein, Total 6.1 g/dL 6.0-8.5 (test code = 2885-2) Albumin (test code 3.0 g/dL 4.0-5.0 L = 1751-7) Globulin, Total 3.1 g/dL 1.5-4.5 (test code = 79916-0) A/G Ratio (test 1.0 1.2-2.2 L code = 1759-0) Bilirubin, Total 0.6 mg/dL 0.0-1.2 (test code = 1975-2) Alkaline 130 IU/L 48-121 H Phosphatase (test Pl ease note code = 6768-6) reference int erval change
<b r/>Perf ormed by:
[facility] ([place])

AST (SGOT) (test 15 IU/L 0-40 code = 1920-8) ALT (SGPT) (test 18 IU/L 0-44 code = 1742-6) [facility] Description: Comp. Metabolic Panel ()2020-08-16 01:19:00 Test Item Value Reference Range Interpretation Comments Glucose (test code 424 mg/dL 65-99 H = 2345-7) BUN (test code = 27 mg/dL 6-24 H 3094-0) Creatinine (test 1.88 mg/dL 0.76-1.27 H code = 2160-0) eGFR If NonAfricn 42 >59 L Am (test code = mL/min/1.73 37723-5) eGFR If Africn Am 48 >59 L [facility] currently (test code = mL/min/1.73 [place] 0[address]-8) compliance with the current recommendations of the [employer]. [facility] [place] will update re porting as new guidelin es are published from the [facility]F-ASN Task force.
<br/ >Perfor med by:
[facility] [place] [facility] (HD)

BUN/Creatinine 14 9-20 Ratio (test code = 3097-3) Sodium (test code = 138 mmol/L 133-393 7477-2) Potassium (test 4.2 mmol/L 3.5-5.2 code = 2823-3) Chloride (test code 98 mmol/L 96-106 = 2075-0) Carbon Dioxide, 28 mmol/L 20-29 Total (test code = 2027-) Calcium (test code 8.4 mg/dL 8.7-10.2 L = 66003-0) Protein, Total 6.1 g/dL 6.0-8.5 (test code = 2885-2) Albumin (test code 3.0 g/dL 4.0-5.0 L = 1751-7) Globulin, Total 3.1 g/dL 1.5-4.5 (test code = 34437-3) A/G Ratio (test 1.0 1.2-2.2 L code = 1759-0) Bilirubin, Total 0.6 mg/dL 0.0-1.2 (test code = 1974-2) Alkaline 130 IU/L 48-121 H Phosphatase (test Pl ease note code = 6768-6) reference int erval change
<b r/>Perf ormed by:
[facility] ([place])

AST (SGOT) (test 15 IU/L 0-40 code = 1920-8) ALT (SGPT) (test 18 IU/L 0-44 code = 1742-6) [facility] Description: Comp. Metabolic Panel (14)2020-08-16 01:19:00 Test Item Value Reference Range Interpretation Comments Glucose (test code 424 mg/dL 65-99 H = 2345-7) BUN (test code = 27 mg/dL 6-24 H 3094-0) Creatinine (test 1.88 mg/dL 0.76-1.27 H code = 2160-0) eGFR If NonAfricn 42 >59 L Am (test code = mL/min/1.73 68457-0) eGFR If Africn Am 48 >59 L [facility] currently (test code = mL/min/1.73 [place] [address]-5) compliance with the current recommendations of the [employer]. [facility] [place] will update re porting as new guidelin es are published from the [facility]F-ASN Task force.
<br/ >Perfor med by:
[facility] [place] [facility] (HD)

BUN/Creatinine 14 9-20 Ratio (test code = 3097-3) Sodium (test code = 138 mmol/L 592-632 5126-2) Potassium (test 4.2 mmol/L 3.5-5.2 code = 2823-3) Chloride (test code 98 mmol/L 96-106 = 2075-0) Carbon Dioxide, 28 mmol/L 20-29 Total (test code = 2027-9) Calcium (test code 8.4 mg/dL 8.7-10.2 L = 73635-5) Protein, Total 6.1 g/dL 6.0-8.5 (test code = 2885-2) Albumin (test code 3.0 g/dL 4.0-5.0 L = 1751-7) Globulin, Total 3.1 g/dL 1.5-4.5 (test code = 38889-8) A/G Ratio (test 1.0 1.2-2.2 L code = 1759-0) Bilirubin, Total 0.6 mg/dL 0.0-1.2 (test code = 1974-2) Alkaline 130 IU/L 48-121 H Phosphatase (test Pl ease note code = 6768-6) reference int erval change
<b r/>Perf ormed by:
[facility] ([place])

AST (SGOT) (test 15 IU/L 0-40 code = 1920-8) ALT (SGPT) (test 18 IU/L 0-44 code = 1742-6) [facility] Description: Comp. Metabolic Panel (14)2020-08-16 01:19:00 Test Item Value Reference Range Interpretation Comments Glucose (test code 424 mg/dL 65-99 H = 2345-7) BUN (test code = 27 mg/dL 6-24 H 3094-0) Creatinine (test 1.88 mg/dL 0.76-1.27 H code = 2160-0) eGFR If NonAfricn 42 >59 L Am (test code = mL/min/1.73 95792-0) eGFR If Africn Am 48 >59 L [facility] currently (test code = mL/min/1.73 [place] [address]-4) compliance with the current recommendations of the [employer]. [facility] [place] will update re porting as new guidelin es are published from the [facility]F-ASN Task force.
<br/ >Perfor med by:
[facility] [place] [facility] (HD)

BUN/Creatinine 14 9-20 Ratio (test code = 3097-3) Sodium (test code = 138 mmol/L 384-804 6283-2) Potassium (test 4.2 mmol/L 3.5-5.2 code = 2823-3) Chloride (test code 98 mmol/L 96-106 = 2075-0) Carbon Dioxide, 28 mmol/L 20-29 Total (test code = 2027-9) Calcium (test code 8.4 mg/dL 8.7-10.2 L = 76954-5) Protein, Total 6.1 g/dL 6.0-8.5 (test code = 2885-2) Albumin (test code 3.0 g/dL 4.0-5.0 L = 1751-7) Globulin, Total 3.1 g/dL 1.5-4.5 (test code = 34938-1) A/G Ratio (test 1.0 1.2-2.2 L code = 1759-0) Bilirubin, Total 0.6 mg/dL 0.0-1.2 (test code = 1975-2) Alkaline 130 IU/L 48-121 H Phosphatase (test Pl ease note code = 6768-6) reference int erval change
<b r/>Perf ormed by:
[facility] ([place])

AST (SGOT) (test 15 IU/L 0-40 code = 1920-8) ALT (SGPT) (test 18 IU/L 0-44 code = 1742-6) [facility] Description: Comp. Metabolic Panel (2020-08-16 01:19:00 Test Item Value Reference Range Interpretation Comments Glucose (test code 424 mg/dL 65-99 H = 2345-7) BUN (test code = 27 mg/dL 6-24 H 3094-0) Creatinine (test 1.88 mg/dL 0.76-1.27 H code = 2160-0) eGFR If NonAfricn 42 >59 L Am (test code = mL/min/1.73 85810-2) eGFR If Africn Am 48 >59 L [facility] currently (test code = mL/min/1.73 [place] [address]-7) compliance with the current recommendations of the [employer]. [facility] [place] will update re porting as new guidelin es are published from the [facility]F-ASN Task force.
<br/ >Perfor med by:
[facility] [place] [facility] (HD)

BUN/Creatinine 14 9-20 Ratio (test code = 3097-3) Sodium (test code = 138 mmol/L 269-942 4055-2) Potassium (test 4.2 mmol/L 3.5-5.2 code = 2823-3) Chloride (test code 98 mmol/L 96-106 = 2075-0) Carbon Dioxide, 28 mmol/L 20-29 Total (test code = 2027-) Calcium (test code 8.4 mg/dL 8.7-10.2 L = 92403-0) Protein, Total 6.1 g/dL 6.0-8.5 (test code = 2885-2) Albumin (test code 3.0 g/dL 4.0-5.0 L = 1751-7) Globulin, Total 3.1 g/dL 1.5-4.5 (test code = 20780-8) A/G Ratio (test 1.0 1.2-2.2 L code = 1759-0) Bilirubin, Total 0.6 mg/dL 0.0-1.2 (test code = 1975-2) Alkaline 130 IU/L 48-121 H Phosphatase (test Pl ease note code = 6768-6) reference int erval change
<b r/>Perf ormed by:
[facility] ([place])

AST (SGOT) (test 15 IU/L 0-40 code = 1920-8) ALT (SGPT) (test 18 IU/L 0-44 code = 1742-6) [facility] Description: Comp. Metabolic Panel (14)2020-08-16 01:19:00 Test Item Value Reference Range Interpretation Comments Glucose (test code 424 mg/dL 65-99 H = 2345-7) BUN (test code = 27 mg/dL 6-24 H 3094-0) Creatinine (test 1.88 mg/dL 0.76-1.27 H code = 2160-0) eGFR If NonAfricn 42 >59 L Am (test code = mL/min/1.73 14272-7) eGFR If Africn Am 48 >59 L [facility] currently (test code = mL/min/1.73 [place] [address]-5) compliance with the current recommendations of the [employer]. [facility] [place] will update re porting as new guidelin es are published from the [facility]F-ASN Task force.
<br/ >Perfor med by:
[facility] [place] [facility] (HD)

BUN/Creatinine 14 9-20 Ratio (test code = 3097-3) Sodium (test code = 138 mmol/L 665-246 4046-2) Potassium (test 4.2 mmol/L 3.5-5.2 code = 2823-3) Chloride (test code 98 mmol/L 96-106 = 2075-0) Carbon Dioxide, 28 mmol/L 20-29 Total (test code = 2027-) Calcium (test code 8.4 mg/dL 8.7-10.2 L = 81395-5) Protein, Total 6.1 g/dL 6.0-8.5 (test code = 2885-2) Albumin (test code 3.0 g/dL 4.0-5.0 L = 1751-7) Globulin, Total 3.1 g/dL 1.5-4.5 (test code = 54974-1) A/G Ratio (test 1.0 1.2-2.2 L code = 1759-0) Bilirubin, Total 0.6 mg/dL 0.0-1.2 (test code = 1975-2) Alkaline 130 IU/L 48-121 H Phosphatase (test Pl ease note code = 6768-6) reference int erval change
<b r/>Perf ormed by:
[facility] ([place])

AST (SGOT) (test 15 IU/L 0-40 code = 1920-8) ALT (SGPT) (test 18 IU/L 0-44 code = 1742-6) [facility] Description: Comp. Metabolic Panel (14)2020-08-16 01:19:00 Test Item Value Reference Range Interpretation Comments Glucose (test code 424 mg/dL 65-99 H = 2345-7) BUN (test code = 27 mg/dL 6-24 H 3094-0) Creatinine (test 1.88 mg/dL 0.76-1.27 H code = 2160-0) eGFR If NonAfricn 42 >59 L Am (test code = mL/min/1.73 26234-8) eGFR If Africn Am 48 >59 L [facility] currently (test code = mL/min/1.73 [place] 27585-3) compliance with the current recommendations of the [employer]. [facility] [place] will update re porting as new guidelin es are published from the [facility]F-ASN Task force.
<br/ >Perfor med by:
[facility] [place] [facility] (HD)

BUN/Creatinine 14 9-20 Ratio (test code = 3097-3) Sodium (test code = 138 mmol/L 196-706 0909-2) Potassium (test 4.2 mmol/L 3.5-5.2 code = 2823-3) Chloride (test code 98 mmol/L 96-106 = 2075-0) Carbon Dioxide, 28 mmol/L 20-29 Total (test code = 2027-) Calcium (test code 8.4 mg/dL 8.7-10.2 L = 27129-3) Protein, Total 6.1 g/dL 6.0-8.5 (test code = 2885-2) Albumin (test code 3.0 g/dL 4.0-5.0 L = 1751-7) Globulin, Total 3.1 g/dL 1.5-4.5 (test code = 00370-5) A/G Ratio (test 1.0 1.2-2.2 L code = 1759-0) Bilirubin, Total 0.6 mg/dL 0.0-1.2 (test code = 1975-2) Alkaline 130 IU/L 48-121 H Phosphatase (test Pl ease note code = 6768-6) reference int erval change
<b r/>Perf ormed by:
[facility] ([facility])

AST (SGOT) (test 15 IU/L 0-40 code = 1920-8) ALT (SGPT) (test 18 IU/L 0-44 code = 1742-6) [facility] Description: Comp. Metabolic Panel (14)2020-08-16 01:19:00 Test Item Value Reference Range Interpretation Comments Glucose (test code 424 mg/dL 65-99 H = 2345-7) BUN (test code = 27 mg/dL 6-24 H 3094-0) Creatinine (test 1.88 mg/dL 0.76-1.27 H code = 2160-0) eGFR If NonAfricn 42 >59 L Am (test code = mL/min/1.73 29406-3) eGFR If Africn Am 48 >59 L [facility] currently (test code = mL/min/1[place]73 [place] [address]-6) compliance with the current recommendations of the [employer]. [facility] [place] will update re porting as new guidelin es are published from the NKF-ASN Task force.
<br/ >Perfor med by:
[facility] (HD)

BUN/Creatinine 14 9-20 Ratio (test code = 3097-3) Sodium (test code = 138 mmol/L 258-415 7482-2) Potassium (test 4.2 mmol/L 3.5-5.2 code = 2823-3) Chloride (test code 98 mmol/L 96-106 = 5-0) Carbon Dioxide, 28 mmol/L 20-29 Total (test code = 2027-) Calcium (test code 8.4 mg/dL 8.7-10.2 L = 28953-4) Protein, Total 6.1 g/dL 6.0-8.5 (test code = 2885-2) Albumin (test code 3.0 g/dL 4.0-5.0 L = 1751-7) Globulin, Total 3.1 g/dL 1.5-4.5 (test code = 39222-5) A/G Ratio (test 1.0 1.2-2.2 L code = 1759-0) Bilirubin, Total 0.6 mg/dL 0.0-1.2 (test code = 1975-2) Alkaline 130 IU/L 48-121 H Phosphatase (test Pl ease note code = 6768-6) reference int erval change
<b r/>Perf ormed by:
[facility] ([place])

AST (SGOT) (test 15 IU/L 0-40 code = 1920-8) ALT (SGPT) (test 18 IU/L 0-44 code = 1742-6) [facility] Description: Comp. Metabolic Panel (14)2020-08-16 01:19:00 Test Item Value Reference Range Interpretation Comments Glucose (test code 424 mg/dL 65-99 H = 2345-7) BUN (test code = 27 mg/dL 6-24 H 3094-0) Creatinine (test 1.88 mg/dL 0.76-1.27 H code = 2160-0) eGFR If NonAfricn 42 >59 L Am (test code = mL/min/1.73 61165-8) eGFR If Africn Am 48 >59 L [facility] currently (test code = mL/min/1[place]73 [place] [address]-8) compliance with the current recommendations of the [employer]. [facility] [place] will update re porting as new guidelin es are published from the NKF-ASN Task force.
<br/ >Perfor med by:
[facility] (HD)

BUN/Creatinine 14 9-20 Ratio (test code = 3097-3) Sodium (test code = 138 mmol/L 961-045 8248-2) Potassium (test 4.2 mmol/L 3.5-5.2 code = 2823-3) Chloride (test code 98 mmol/L 96-106 = 2075-0) Carbon Dioxide, 28 mmol/L 20-29 Total (test code = 2027-) Calcium (test code 8.4 mg/dL 8.7-10.2 L = 45257-6) Protein, Total 6.1 g/dL 6.0-8.5 (test code = 2885-2) Albumin (test code 3.0 g/dL 4.0-5.0 L = 1751-7) Globulin, Total 3.1 g/dL 1.5-4.5 (test code = 93147-4) A/G Ratio (test 1.0 1.2-2.2 L code = 1759-0) Bilirubin, Total 0.6 mg/dL 0.0-1.2 (test code = 1975-2) Alkaline 130 IU/L 48-121 H Phosphatase (test Pl ease note code = 6768-6) reference int erval change
<b r/>Perf ormed by:
[facility] ([place])

AST (SGOT) (test 15 IU/L 0-40 code = 1920-8) ALT (SGPT) (test 18 IU/L 0-44 code = 1742-6) [facility] Description: Comp. Metabolic Panel (14)2020-08-16 01:19:00 Test Item Value Reference Range Interpretation Comments Glucose (test code 424 mg/dL 65-99 H = 2345-7) BUN (test code = 27 mg/dL 6-24 H 3094-0) Creatinine (test 1.88 mg/dL 0.76-1.27 H code = 2160-0) eGFR If NonAfricn 42 >59 L Am (test code = mL/min/1.73 25866-2) eGFR If Africn Am 48 >59 L [facility] currently (test code = mL/min/1[place]73 [place] [address]-0) compliance with the current recommendations of the [employer]. [facility] [place] will update re porting as new guidelin es are published from the NKF-ASN Task force.
<br/ >Perfor med by:
[facility] ([place])

BUN/Creatinine 14 9-20 Ratio (test code = 3097-3) Sodium (test code = 138 mmol/L 233-920 4678-2) Potassium (test 4.2 mmol/L 3.5-5.2 code = 2823-3) Chloride (test code 98 mmol/L 96-106 = 2075-0) Carbon Dioxide, 28 mmol/L 20-29 Total (test code = 2027-9) Calcium (test code 8.4 mg/dL 8.7-10.2 L = 58832-1) Protein, Total 6.1 g/dL 6.0-8.5 (test code = 2885-2) Albumin (test code 3.0 g/dL 4.0-5.0 L = 1751-7) Globulin, Total 3.1 g/dL 1.5-4.5 (test code = 93915-8) A/G Ratio (test 1.0 1.2-2.2 L code = 1759-0) Bilirubin, Total 0.6 mg/dL 0.0-1.2 (test code = 1975-2) Alkaline 130 IU/L 48-121 H Phosphatase (test Pl ease note code = 6768-6) reference int erval change
<b r/>Perf ormed by:
[facility] ([place])

AST (SGOT) (test 15 IU/L 0-40 code = 1920-8) ALT (SGPT) (test 18 IU/L 0-44 code = 1742-6) [facility] Description: Comp. Metabolic Panel (14)2020-08-16 01:19:00 Test Item Value Reference Range Interpretation Comments Glucose (test code 424 mg/dL 65-99 H = 2345-7) BUN (test code = 27 mg/dL 6-24 H 3094-0) Creatinine (test 1.88 mg/dL 0.76-1.27 H code = 2160-0) eGFR If NonAfricn 42 >59 L Am (test code = mL/min/1.73 00476-8) eGFR If Africn Am 48 >59 L [facility] currently (test code = mL/min/1.73 [place] [address]487-3) compliance with the current recommendations of the [employer]. [facility] [place] will update re porting as new guidelin es are published from the NKF-ASN Task force.
<br/ >Perfor med by:
[facility] [place] ([place])

BUN/Creatinine 14 9-20 Ratio (test code = 3097-3) Sodium (test code = 138 mmol/L 657-317 8804-2) Potassium (test 4.2 mmol/L 3.5-5.2 code = 2823-3) Chloride (test code 98 mmol/L 96-106 = 2075-0) Carbon Dioxide, 28 mmol/L 20-29 Total (test code = 2027-) Calcium (test code 8.4 mg/dL 8.7-10.2 L = 36599-9) Protein, Total 6.1 g/dL 6.0-8.5 (test code = 2885-2) Albumin (test code 3.0 g/dL 4.0-5.0 L = 1751-7) Globulin, Total 3.1 g/dL 1.5-4.5 (test code = 01755-8) A/G Ratio (test 1.0 1.2-2.2 L code = 1759-0) Bilirubin, Total 0.6 mg/dL 0.0-1.2 (test code = 1975-2) Alkaline 130 IU/L 48-121 H Phosphatase (test Pl ease note code = 6768-6) reference int erval change
<b r/>Perf ormed by:
[facility] [place] ([place])

AST (SGOT) (test 15 IU/L 0-40 code = 1920-8) ALT (SGPT) (test 18 IU/L 0-44 code = 1742-6) [facility] Description: Hemoglobin A1c/Hemoglobin.total in Blood 2020-08-16 00:35:00 Test Item Value Reference Range Interpretation Comments Hemoglobin A1c (test code 11.6 % 4.8-5.6 H = 4548-4) . Prediabetes: 5. 7 - 6.4 Diabete s: >6.4 Glycemi c control for niall lts with diabetes: <7.0

P erforme d by:
[facility] [place] ([place])

[facility] Description: Hemoglobin A1c/Hemoglobin.total in Blood 2020-08-16 00:35:00 Test Item Value Reference Range Interpretation Comments Hemoglobin A1c (test code 11.6 % 4.8-5.6 H = 4548-4) . Prediabetes: 5. 7 - 6.4 Diabete s: >6.4 Glycemi c control for niall lts with diabetes: <7.0

P erforme d by:
[employer] [place] ([place])

[facility] Description: Hemoglobin A1c/Hemoglobin.total in Blood 2020-08-16 00:35:00 Test Item Value Reference Range Interpretation Comments Hemoglobin A1c (test code 11.6 % 4.8-5.6 H = 4548-4) . Prediabetes: 5. 7 - 6.4 Diabete s: >6.4 Glycemi c control for niall lts with diabetes: <7.0

P erforme d by:
[employer] [place] ()

[facility] Description: Hemoglobin A1c/Hemoglobin.total in Blood 2020-08-16 00:35:00 Test Item Value Reference Range Interpretation Comments Hemoglobin A1c (test code 11.6 % 4.8-5.6 H = 4548-4) . Prediabetes: 5. 7 - 6.4 Diabete s: >6.4 Glycemi c control for niall lts with diabetes: <7.0

P erforme d by:
[employer] [place] ([place])

[facility] Description: Hemoglobin A1c/Hemoglobin.total in Blood 2020-08-16 00:35:00 Test Item Value Reference Range Interpretation Comments Hemoglobin A1c (test code 11.6 % 4.8-5.6 H = 4548-4) . Prediabetes: 5. 7 - 6.4 Diabete s: >6.4 Glycemi c control for niall lts with diabetes: <7.0

P erforme d by:
[employer] [place] ([place])

[facility] Description: Hemoglobin A1c/Hemoglobin.total in Blood 2020-08-16 00:35:00 Test Item Value Reference Range Interpretation Comments Hemoglobin A1c (test code 11.6 % 4.8-5.6 H = 4548-4) . Prediabetes: 5. 7 - 6.4 Diabete s: >6.4 Glycemi c control for niall lts with diabetes: <7.0

P erforme d by:
[facility] ([place])

[facility] Description: Hemoglobin A1c/Hemoglobin.total in Blood 2020-08-16 00:35:00 Test Item Value Reference Range Interpretation Comments Hemoglobin A1c (test code 11.6 % 4.8-5.6 H = 4548-4) . Prediabetes: 5. 7 - 6.4 Diabete s: >6.4 Glycemi c control for niall lts with diabetes: <7.0

P erforme d by:
[employer] [facility] ([place])

[facility] Description: Hemoglobin A1c/Hemoglobin.total in Blood 2020-08-16 00:35:00 Test Item Value Reference Range Interpretation Comments Hemoglobin A1c (test code 11.6 % 4.8-5.6 H = 4548-4) . Prediabetes: 5. 7 - 6.4 Diabete s: >6.4 Glycemi c control for niall lts with diabetes: <7.0

P erforme d by:
[employer] [facility] ([place])

[facility] Description: Hemoglobin A1c/Hemoglobin.total in Blood 2020-08-16 00:35:00 Test Item Value Reference Range Interpretation Comments Hemoglobin A1c (test code 11.6 % 4.8-5.6 H = 4548-4) . Prediabetes: 5. 7 - 6.4 Diabete s: >6.4 Glycemi c control for niall lts with diabetes: <7.0

P erforme d by:
[employer] [facility] ([place])

[facility] Description: Hemoglobin A1c/Hemoglobin.total in Blood 2020-08-16 00:35:00 Test Item Value Reference Range Interpretation Comments Hemoglobin A1c (test code 11.6 % 4.8-5.6 H = 4548-4) . Prediabetes: 5. 7 - 6.4 Diabete s: >6.4 Glycemi c control for niall lts with diabetes: <7.0

P erforme d by:
[employer] [facility] ([place])

[facility] Description: Hemoglobin A1c/Hemoglobin.total in Blood 2020-08-16 00:35:00 Test Item Value Reference Range Interpretation Comments Hemoglobin A1c (test code 11.6 % 4.8-5.6 H = 4548-4) . Prediabetes: 5. 7 - 6.4 Diabete s: >6.4 Glycemi c control for niall lts with diabetes: <7.0

P erforme d by:
[employer] [facility] ([place])

[facility] Description: Hemoglobin A1c/Hemoglobin.total in Blood 2020-08-16 00:35:00 Test Item Value Reference Range Interpretation Comments Hemoglobin A1c (test code 11.6 % 4.8-5.6 H = 4548-4) . Prediabetes: 5. 7 - 6.4 Diabete s: >6.4 Glycemi c control for niall lts with diabetes: <7.0

P erforme d by:
[employer] [facility] ([place])

[facility] Description: Hemoglobin A1c/Hemoglobin.total in Blood 2020-08-16 00:35:00 Test Item Value Reference Range Interpretation Comments Hemoglobin A1c (test code 11.6 % 4.8-5.6 H = 4548-4) . Prediabetes: 5. 7 - 6.4 Diabete s: >6.4 Glycemi c control for niall lts with diabetes: <7.0

P erforme d by:
[employer] [facility] ([place])

[facility] Description: Hemoglobin A1c/Hemoglobin.total in Blood 2020-08-16 00:35:00 Test Item Value Reference Range Interpretation Comments Hemoglobin A1c (test code 11.6 % 4.8-5.6 H = 4548-4) . Prediabetes: 5. 7 - 6.4 Diabete s: >6.4 Glycemi c control for niall lts with diabetes: <7.0

P erforme d by:
[facility] ()

[facility] Description: Hemoglobin A1c/Hemoglobin.total in Blood 2020-08-16 00:35:00 Test Item Value Reference Range Interpretation Comments Hemoglobin A1c (test code 11.6 % 4.8-5.6 H = 4548-4) . Prediabetes: 5. 7 - 6.4 Diabete s: >6.4 Glycemi c control for niall lts with diabetes: <7.0

P erforme d by:
[employer] [facility] ()

[facility] Description: Hemoglobin A1c/Hemoglobin.total in Blood 2020-08-16 00:35:00 Test Item Value Reference Range Interpretation Comments Hemoglobin A1c (test code 11.6 % 4.8-5.6 H = 4548-4) . Prediabetes: 5. 7 - 6.4 Diabete s: >6.4 Glycemi c control for niall lts with diabetes: <7.0

P erforme d by:
[employer] [facility] ()

[facility] Description: Hemoglobin A1c/Hemoglobin.total in Blood 2020-08-16 00:35:00 Test Item Value Reference Range Interpretation Comments Hemoglobin A1c (test code 11.6 % 4.8-5.6 H = 4548-4) . Prediabetes: 5. 7 - 6.4 Diabete s: >6.4 Glycemi c control for niall lts with diabetes: <7.0

P erforme d by:
[facility] ([place])

[facility] Description: Hemoglobin A1c/Hemoglobin.total in Blood 2020-08-16 00:35:00 Test Item Value Reference Range Interpretation Comments Hemoglobin A1c (test code 11.6 % 4.8-5.6 H = 4548-4) . Prediabetes: 5. 7 - 6.4 Diabete s: >6.4 Glycemi c control for niall lts with diabetes: <7.0

P erforme d by:
[facility] ([place])

[facility] Description: Hemoglobin A1c/Hemoglobin.total in Blood 2020-08-16 00:35:00 Test Item Value Reference Range Interpretation Comments Hemoglobin A1c (test code 11.6 % 4.8-5.6 H = 4548-4) . Prediabetes: 5. 7 - 6.4 Diabete s: >6.4 Glycemi c control for niall lts with diabetes: <7.0

P erforme d by:
[facility] ([place])

[facility] Description: Hemoglobin A1c/Hemoglobin.total in Blood 2020-08-16 00:35:00 Test Item Value Reference Range Interpretation Comments Hemoglobin A1c (test code 11.6 % 4.8-5.6 H = 4548-4) . Prediabetes: 5. 7 - 6.4 Diabete s: >6.4 Glycemi c control for niall lts with diabetes: <7.0

P erforme d by:
[facility] ([place])

[facility] and screen, [id number] 19:24:00 Test Item Value Reference Range Interpretation Comments ABO/RH AUTOMATED (BEAKER) (test A POSITIVE ECHO code = 2260) Ab Scrn (test code = 890-4) [facility] [id number] 19:24:00 Test Item Value Reference Range Interpretation Comments ABO/RH AUTOMATED (BEAKER) (test A POSITIVE ECHO code = 2260) Ab Scrn (test code = 890-4) [facility] [id number] 19:24:00 Test Item Value Reference Range Interpretation Comments ABO/RH AUTOMATED (BEAKER) (test A POSITIVE ECHO code = 2260) Ab Scrn (test code = 890-4) [facility], [id number] 19:24:00 Test Item Value Reference Range Interpretation Comments ABO/RH AUTOMATED (BEAKER) (test A POSITIVE ECHO code = 2260) Ab Scrn (test code = 890-4) [facility], [id number] 19:24:00 Test Item Value Reference Range Interpretation Comments ABO/RH AUTOMATED (BEAKER) (test A POSITIVE ECHO code = 2260) Ab Scrn (test code = 890-4) [facility], [id number] 19:24:00 Test Item Value Reference Range Interpretation Comments ABO/RH AUTOMATED (BEAKER) (test A POSITIVE ECHO code = 2260) Ab Scrn (test code = 890-4) [facility], [id number] 19:24:00 Test Item Value Reference Range Interpretation Comments ABO/RH AUTOMATED (BEAKER) (test A POSITIVE ECHO code = 2260) Ab Scrn (test code = 890-4) [facility]CHO [facility] [id number] 19:12:00 Test Item Value Reference Range Interpretation Comments Protein, Total (test 6.9 See_Comment [Autom ated code = 2885-2) message] The system which generated this result transmit josé luis reference range : 6.0 - 8.5 gm/dL . The reference range was not u sed to interpret th is result as normal/abnormal . Albumin (test code = 3.3 g/dL 3.5-5 L 70833-9) Alkaline Phosphatase 97 U/L 30-115 (test code = 6768-6) Total Bilirubin (test 0.9 mg/dL 0.1-1.2 code = 1975-2) Sodium (test code = 137 meq/L 544-968 6479-2) Potassium (test code 4.5 meq/L 3.6-5.5 = 2823-3) Chloride (test code = 100 meq/L 98-106 2075-0) CO2 (test code = 26 meq/L 20-29 2028-9) BUN (test code = 51 mg/dL 10-26 H 3094-0) Creatinine (test code 1.87 mg/dL 0.5-1.2 H = 2160-0) Glucose (test code = 267 mg/dL 70-110 H 2345-7) Calcium (test code = 9.1 mg/dL 8.5-10.5 63882-7) AST (test code = 18 U/L 5-40 1920-8) ALT (test code = 23 U/L 5-50 1742-6) EGFR (test code = 39 mL/min/1.73 [place] [address]-5) NOT ACCURATE CREATININE CLEARANCE IN PREDICTING GLOMERULAR FILTRATION RATE . ESTIMATED GFR I S NOT APPLICABLE FOR DIALYSIS PATIEN TS. ISSA (test code = ISSA) [employer] ID - [id number] r ID - [id number] r ID - [id number] r ID - [id number] r ID - [id number] r ID - [id number] r ID - [id number] r ID - [id number] r ID - [id number] r ID - [id number] r ID - [id number] r ID - [id number] r ID - [id number] r ID - [id number] r ID - [id number] r ID - [id number] r ID - [id number] r ID - [id number] r ID - [id number] Lab Interpretation Abnormal (test code = 35413-3) [facility] [id number] 19:12:00 Test Item Value Reference Range Interpretation Comments Protein, Total (test 6.9 See_Comment [Autom ated code = 2885-2) message] The system which generated this result transmit josé luis reference range : 6.0 - 8.5 gm/dL . The reference range was not u sed to interpret th is result as normal/abnormal . Albumin (test code = 3.3 g/dL 3.5-5 L 31867-3) Alkaline Phosphatase 97 U/L 30-115 (test code = 6768-6) Total Bilirubin (test 0.9 mg/dL 0.1-1.2 code = 1974-2) Sodium (test code = 137 meq/L 005-152 0625-2) Potassium (test code 4.5 meq/L 3.6-5.5 = 2823-3) Chloride (test code = 100 meq/L 98-106 5-0) CO2 (test code = 26 meq/L 20-29 2027-9) BUN (test code = 51 mg/dL 10-26 H 3094-0) Creatinine (test code 1.87 mg/dL 0.5-1.2 H = 2160-0) Glucose (test code = 267 mg/dL 70-110 H 2345-7) Calcium (test code = 9.1 mg/dL 8.5-10.5 83513-4) AST (test code = 18 U/L 5-40 1920-8) ALT (test code = 23 U/L 5-50 1742-6) EGFR (test code = 39 mL/min/1.73 [place] [address]-6) NOT ACCURATE CREATININE CLEARANCE IN PREDICTING GLOMERULAR FILTRATION RATE . ESTIMATED GFR I S NOT APPLICABLE FOR DIALYSIS PATIEN TS. ISSA (test code = ISSA) [employer] ID - [id number] r ID - [id number] r ID - [id number] r ID - [id number] r ID - [id number] r ID - [id number] r ID - [id number] r ID - [id number] r ID - [id number] r ID - [id number] r ID - [id number] r ID - [id number] r ID - [id number] r ID - [id number] r ID - [id number] r ID - [id number] r ID - [id number] r ID - [id number] r ID - [id number] Lab Interpretation Abnormal (test code = 74580-9) [facility] [id number] 19:12:00 Test Item Value Reference Range Interpretation Comments Protein, Total (test 6.9 See_Comment [Autom ated code = 2885-2) message] The system which generated this result transmit josé luis reference range : 6.0 - 8.5 gm/dL . The reference range was not u sed to interpret th is result as normal/abnormal . Albumin (test code = 3.3 g/dL 3.5-5 L 99518-7) Alkaline Phosphatase 97 U/L 30-115 (test code = 6768-6) Total Bilirubin (test 0.9 mg/dL 0.1-1.2 code = 1975-2) Sodium (test code = 137 meq/L 001-964 5113-2) Potassium (test code 4.5 meq/L 3.6-5.5 = 2823-3) Chloride (test code = 100 meq/L 98-106 2075-0) CO2 (test code = 26 meq/L 20-29 2028-9) BUN (test code = 51 mg/dL 10-26 H 3094-0) Creatinine (test code 1.87 mg/dL 0.5-1.2 H = 2160-0) Glucose (test code = 267 mg/dL 70-110 H 2345-7) Calcium (test code = 9.1 mg/dL 8.5-10.5 43205-6) AST (test code = 18 U/L 5-40 1920-8) ALT (test code = 23 U/L 5-50 1742-6) EGFR (test code = 39 mL/min/1.73 [place] [address]-3) NOT ACCURATE CREATININE CLEARANCE IN PREDICTING GLOMERULAR FILTRATION RATE . ESTIMATED GFR I S NOT APPLICABLE FOR DIALYSIS PATIEN TS. ISSA (test code = ISSA) [employer] ID - [id number] r ID - [id number] r ID - [id number] r ID - [id number] r ID - [id number] r ID - [id number] r ID - [id number] r ID - [id number] r ID - [id number] r ID - [id number] r ID - [id number] r ID - [id number] r ID - [id number] r ID - [id number] r ID - [id number] r ID - [id number] r ID - [id number] r ID - [id number] r ID - [id number] Lab Interpretation Abnormal (test code = 94425-7) [facility] [id number] 19:12:00 Test Item Value Reference Range Interpretation Comments Protein, Total (test 6.9 See_Comment [Autom ated code = 2885-2) message] The system which generated this result transmit josé luis reference range : 6.0 - 8.5 gm/dL . The reference range was not u sed to interpret th is result as normal/abnormal . Albumin (test code = 3.3 g/dL 3.5-5 L 51501-2) Alkaline Phosphatase 97 U/L 30-115 (test code = 6768-6) Total Bilirubin (test 0.9 mg/dL 0.1-1.2 code = 1974-2) Sodium (test code = 137 meq/L 040-325 7414-2) Potassium (test code 4.5 meq/L 3.6-5.5 = 2823-3) Chloride (test code = 100 meq/L 98-106 2075-0) CO2 (test code = 26 meq/L 20-29 2028-9) BUN (test code = 51 mg/dL 10-26 H 3094-0) Creatinine (test code 1.87 mg/dL 0.5-1.2 H = 2160-0) Glucose (test code = 267 mg/dL 70-110 H 2345-7) Calcium (test code = 9.1 mg/dL 8.5-10.5 09270-2) AST (test code = 18 U/L 5-40 1920-8) ALT (test code = 23 U/L 5-50 1742-6) EGFR (test code = 39 mL/min/1.73 [place] [address]-1) NOT ACCURATE CREATININE CLEARANCE IN PREDICTING GLOMERULAR FILTRATION RATE . ESTIMATED GFR I S NOT APPLICABLE FOR DIALYSIS PATIEN TS. ISSA (test code = ISSA) [employer] ID - [id number] r ID - [id number] r ID - [id number] r ID - [id number] r ID - [id number] r ID - [id number] r ID - [id number] r ID - [id number] r ID - [id number] r ID - [id number] r ID - [id number] r ID - [id number] r ID - [id number] r ID - [id number] r ID - [id number] r ID - [id number] r ID - [id number] r ID - [id number] r ID - [id number] Lab Interpretation Abnormal (test code = 91509-7) [facility] [id number] 19:12:00 Test Item Value Reference Range Interpretation Comments Protein, Total (test 6.9 See_Comment [Autom ated code = 2885-2) message] The system which generated this result transmit josé luis reference range : 6.0 - 8.5 gm/dL . The reference range was not u sed to interpret th is result as normal/abnormal . Albumin (test code = 3.3 g/dL 3.5-5.0 L 29026-4) Alkaline Phosphatase 97 U/L 30-115 (test code = 6768-6) Total Bilirubin (test 0.9 mg/dL 0.1-1.2 code = 1974-2) Sodium (test code = 137 meq/L 384-938 8151-2) Potassium (test code 4.5 meq/L 3.6-5.5 = 2823-3) Chloride (test code = 100 meq/L 98-106 2074-0) CO2 (test code = 26 meq/L 20-29 2027-9) BUN (test code = 51 mg/dL 10-26 H 3094-0) Creatinine (test code 1.87 mg/dL 0.50-1.20 H = 2160-0) Glucose (test code = 267 mg/dL 70-110 H 2345-7) Calcium (test code = 9.1 mg/dL 8.5-10.5 10103-5) AST (test code = 18 U/L 5-40 1920-8) ALT (test code = 23 U/L 5-50 1742-6) EGFR (test code = 39 mL/min/1.73 [place] [address]-3) NOT ACCURATE CREATININE CLEARANCE IN PREDICTING GLOMERULAR FILTRATION RATE . ESTIMATED GFR I S NOT APPLICABLE FOR DIALYSIS PATIEN ISSA (test code = ISSA) [employer] ID - [id number] r ID - [id number] r ID - [id number] r ID - [id number] r ID - [id number] r ID - [id number] r ID - [id number] r ID - [id number] r ID - [id number] r ID - [id number] r ID - [id number] r ID - [id number] r ID - [id number] r ID - [id number] r ID - [id number] r ID - [id number] r ID - [id number] r ID - [id number] r ID - [id number] Lab Interpretation Abnormal (test code = 47712-2) [facility] [id number] 19:12:00 Test Item Value Reference Range Interpretation Comments Protein, Total (test 6.9 See_Comment [Autom ated code = 2885-2) message] The system which generated this result transmit josé luis reference range : 6.0 - 8.5 gm/dL . The reference range was not u sed to interpret th is result as normal/abnormal . Albumin (test code = 3.3 g/dL 3.5-5.0 L 73250-6) Alkaline Phosphatase 97 U/L 30-115 (test code = 6768-6) Total Bilirubin (test 0.9 mg/dL 0.1-1.2 code = 1975-2) Sodium (test code = 137 meq/L 774-513 5273-2) Potassium (test code 4.5 meq/L 3.6-5.5 = 2823-3) Chloride (test code = 100 meq/L 98-106 2074-0) CO2 (test code = 26 meq/L 20-29 2027-9) BUN (test code = 51 mg/dL 10-26 H 4-0) Creatinine (test code 1.87 mg/dL 0.50-1.20 H = 2160-0) Glucose (test code = 267 mg/dL 70-110 H 2345-7) Calcium (test code = 9.1 mg/dL 8.5-10.5 91678-0) AST (test code = 18 U/L 5-40 1920-8) ALT (test code = 23 U/L 5-50 1742-6) EGFR (test code = 39 mL/min/1.73 [place] [address]-9) NOT ACCURATE CREATININE CLEARANCE IN PREDICTING GLOMERULAR FILTRATION RATE . ESTIMATED GFR I S NOT APPLICABLE FOR DIALYSIS PATIEN TS. ISSA (test code = ISSA) [employer] ID - [id number] r ID - [id number] r ID - [id number] r ID - [id number] r ID - [id number] r ID - [id number] r ID - [id number] r ID - [id number] r ID - [id number] r ID - [id number] r ID - [id number] r ID - [id number] r ID - [id number] r ID - [id number] r ID - [id number] r ID - [id number] r ID - [id number] r ID - [id number] r ID - [id number] Lab Interpretation Abnormal (test code = 26132-9) [facility] [id number] [facility]:12:00 Test Item Value Reference Range Interpretation Comments Protein, Total (test 6.9 See_Comment [Autom ated code = 2885-2) message] The system which generated this result transmit josé luis reference range : 6.0 - 8.5 gm/dL . The reference range was not u sed to interpret th is result as normal/abnormal . Albumin (test code = 3.3 g/dL 3.5-5.0 L 28735-0) Alkaline Phosphatase 97 U/L 30-115 (test code = 6768-6) Total Bilirubin (test 0.9 mg/dL 0.1-1.2 code = 1974-2) Sodium (test code = 137 meq/L 529-920 3809-2) Potassium (test code 4.5 meq/L 3.6-5.5 = 2823-3) Chloride (test code = 100 meq/L 98-106 5-0) CO2 (test code = 26 meq/L 20-29 2027-9) BUN (test code = 51 mg/dL 10-26 H 3094-0) Creatinine (test code 1.87 mg/dL 0.50-1.20 H = 2160-0) Glucose (test code = 267 mg/dL 70-110 H 2345-7) Calcium (test code = 9.1 mg/dL 8.5-10.5 62807-6) AST (test code = 18 U/L 5-40 1920-8) ALT (test code = 23 U/L 5-50 1742-6) EGFR (test code = 39 mL/min/1.73 [place] [address]-3) NOT ACCURATE CREATININE CLEARANCE IN PREDICTING GLOMERULAR FILTRATION RATE . ESTIMATED GFR I S NOT APPLICABLE FOR DIALYSIS PATIEN TS. ISSA (test code = ISSA) Thermostat Maker ID - [id number] r ID - [id number] r ID - [id number] r ID - [id number] r ID - [id number] r ID - [id number] r ID - [id number] r ID - [id number] r ID - [id number] r ID - [id number] r ID - [id number] r ID - [id number] r ID - [id number] r ID - [id number] r ID - [id number] r ID - [id number] r ID - [id number] r ID - [id number] r ID - [id number] Lab Interpretation Abnormal (test code = 78796-4) [facility] [id number] 19:12:00 Test Item Value Reference Range Interpretation [...] S NOT APPLICABLE FOR DIALYSIS PATIEN TS. Thermostat Maker ID - [id number] ID - [id number] ID - [id number] ID - [id number] ID - [id number] ID - [id number] ID - [id number] ID - [id number] ID - [id number] ID - [id number] ID - [id number] ID - [id number] ID - [id number] ID - [id number] ID - [id number] ID - [id number] ID - [id number] ID - [id number] ID - [id number] acid, [id number] 19:05:00 Test Item Value Reference Range Interpretation Comments Lactate, Venous (test code 1.18 mmol/L 0.5-2 = 2872) ISSA (test code = ISSA) Thermostat Maker ID - [id number] ID - [id number] ID - [id number] ID - [id number] Lab Interpretation (test Normal code = 03755-7) [facility] [id number] 19:05:00 Test Item Value Reference Range Interpretation Comments Lactate, Venous (test code 1.18 mmol/L 0.5-2 = 2872) ISSA (test code = ISSA) Thermostat Maker ID - [id number] ID - [id number] ID - [id number] ID - [id number] Lab Interpretation (test Normal code = 44721-9) [facility] acid, [id number] 19:05:00 Test Item Value Reference Range Interpretation Comments Lactate, Venous (test code 1.18 mmol/L 0.5-2 = 2872) ISSA (test code = ISSA) Thermostat Maker ID - [id number] ID - [id number] ID - [id number] ID - [id number] Lab Interpretation (test Normal code = 18527-3) [facility] [id number] 19:05:00 Test Item Value Reference Range Interpretation Comments Lactate, Venous (test code 1.18 mmol/L 0.5-2 = 2872) ISSA (test code = ISSA) Thermostat Maker ID - [id number] ID - [id number] ID - [id number] ID - [id number] Lab Interpretation (test Normal code = 63692-3) [facility] [id number] 19:05:00 Test Item Value Reference Range Interpretation Comments Lactate, Venous (test code 1.18 mmol/L 0.50-2.00 = 2872) ISSA (test code = ISSA) Thermostat Maker ID - [id number] ID - [id number] ID - [id number] ID - [id number] Lab Interpretation (test Normal code = 03246-5) [facility] [id number] 19:05:00 Test Item Value Reference Range Interpretation Comments Lactate, Venous (test code 1.18 mmol/L 0.50-2.00 = 2872) ISSA (test code = ISSA) Thermostat Maker ID - [id number] ID - [id number] ID - [id number] ID - [id number] Lab Interpretation (test Normal code = 84405-4) [facility] [id number] 19:05:00 Test Item Value Reference Range Interpretation Comments Lactate, Venous (test code 1.18 mmol/L 0.50-2.00 = 2872) ISSA (test code = ISSA) Thermostat Maker ID - [id number] ID - [id number] ID - [id number] ID - [id number] Lab Interpretation (test Normal code = 24913-7) [facility], [id number] 19:05:00 Test Item Value Reference Range Interpretation Comments LACTATE BLOOD VENOUS (2) (BEAKER) 1.18 mmol/L 0.50-<2.00 (test code = 2872) Thermostat Maker ID - [id number] ID - [id number] ID - [id number] ID - [id number] 19:02:00 Test Item Value Reference Interpretation Comments [...] valves. Lab Interpretation Abnormal (test code = 83278-6) [facility]/[id number] 19:02:00 Test Item Value Reference Interpretation Comments [...] valves. Lab Interpretation Abnormal (test code = 26740-4) [facility]/[id number] 19:02:00 Test Item Value Reference Interpretation Comments [...] valves. Lab Interpretation Abnormal (test code = 83503-9) [facility]/[id number] 19:02:00 Test Item Value Reference Interpretation Comments [...] valves. Lab Interpretation Abnormal (test code = 22056-7) [facility]/[id number] 19:02:00 Test Item Value Reference Interpretation Comments [...] valves. Lab Interpretation Abnormal (test code = 66700-8) [facility]/[id number] 19:02:00 Test Item Value Reference Interpretation Comments [...] valves. Lab Interpretation Abnormal (test code = 63850-6) [facility]PT/[id number] 19:02:00 Test Item Value Reference Interpretation Comments [...] valves. Lab Interpretation Abnormal (test code = 43372-6) [facility] HospitalPROTHROMBIN TIME/[id number] 19:02:00 Test Item Value Reference Range Interpretation [...] code = 2801) CARDIAC CATH REPORT - [id number] 13:14:50Ordered by an unspecified provider. [facility] - [id number] 13:14:50Ordered by an unspecified provider.[facility] - SCAN 2020-04-17 13:14:50Ordered by an unspecified provider.[facility] REPORT - [id number] 13:14:50Ordered by an unspecified provider.[facility] HospitalKappa / lambda light chains, [id number] 10:53:00 Test Item Value Reference Interpretation Comments Range [place] Lt Chain,Free 129.5 mg/L 3.3-19.4 H (test code = 06123-7) Lambda Lt 99.3 mg/L 5.7-26.3 H Chain,Free (test code = 09612-5) [place]/Lambda,Free 1.3 0.26-1.65 Free shantell a/lambda (test code [...] = Performing Lab ISSA) [facility] [address] [place] [address] Awais Cedeno MD, PhD, TOMY Lab Interpretation Abnormal (test code = 19610-5) [facility] / lambda light chains, [id number] 10:53:00 Test Item Value Reference Interpretation Comments Range [place] Lt Chain,Free 129.5 mg/L 3.3-19.4 H (test code = 33032-9) Lambda Lt 99.3 mg/L 5.7-26.3 H Chain,Free (test code = 77747-8) [place]/Lambda,Free 1.3 0.26-1.65 Free shantell a/lambda (test code [...] (test code = Performing Lab ISSA) [facility] [employer] [facility] [address] [place] [address] Awais Cedeno MD, PhD, TOMY Lab Interpretation Abnormal (test code = 66323-3) [facility] lambda light chains, [id number] 10:53:00 Test Item Value Reference Interpretation Comments Range [place] Lt Chain,Free 129.5 mg/L 3.3-19.4 H (test code = 15332-7) Lambda Lt 99.3 mg/L 5.7-26.3 H Chain,Free (test code = 22655-6) [place]/Lambda,Free 1.3 0.26-1.65 Free shantell a/lambda (test code [...] nificanc e, and lymphoprolifera tive disorders. Ana Palua urement of free lightch ain concentration i n serum is useful for diagnosis, prog nosis, monitoringdisea se activity and fo llowing response to the rapy of these disorders . ISSA (test code = Performing Lab ISSA) [facility] [address] [place] [address] Awais Cedeno MD, PhD, TOMY Lab Interpretation Abnormal (test code = 60525-3) [facility] lambda light chains, [id number] 10:53:00 Test Item Value Reference Interpretation Comments Range [place] Lt Chain,Free 129.5 mg/L 3.3-19.4 H (test code = 08005-4) Lambda Lt 99.3 mg/L 5.7-26.3 H Chain,Free (test code = 82902-4) [place]/Lambda,Free 1.3 0.26-1.65 Free shantell a/lambda (test code [...] = Performing Lab ISSA) [facility] [address] [place] [address] Awais Cedeno MD, PhD, TOMY Lab Interpretation Abnormal (test code = 90579-8) [facility] / lambda light chains, [id number] 10:53:00 Test Item Value Reference Interpretation Comments Range [place] Lt Chain,Free 129.5 mg/L 3.3-19.4 H (test code = 74688-9) Lambda Lt 99.3 mg/L 5.7-26.3 H Chain,Free (test code = 39557-7) [place]/Lambda,Free 1.3 0.26-1.65 Free shantell a/lambda (test code [...] ISSA (test code = Performing Lab ISSA) [employer] [facility] [address] [place] [address] Awais Cedeno MD, PhD, TOMY Lab Interpretation Abnormal (test code = 38426-7) [facility] lambda light chains, [id number] 10:53:00 Test Item Value Reference Interpretation Comments Range [place] Lt Chain,Free 129.5 mg/L 3.3-19.4 H (test code = 50195-6) Lambda Lt 99.3 mg/L 5.7-26.3 H Chain,Free (test code = 41393-6) [place]/Lambda,Free 1.3 0.26-1.65 Free shantell a/lambda (test code [...] = Performing Lab ISSA) [facility] [address] [place] [address] Awais Cedeno MD, PhD, TOMY Lab Interpretation Abnormal (test code = 10809-3) [facility] lambda light chains, [id number] 10:53:00 Test Item Value Reference Interpretation Comments Range [place] Lt Chain,Free 129.5 mg/L 3.3-19.4 H (test code = 84836-6) Lambda Lt 99.3 mg/L 5.7-26.3 H Chain,Free (test code = 66079-9) [place]/Lambda,Free 1.3 0.26-1.65 Free shantell a/lambda (test code [...] = Performing Lab ISSA) [facility] [address] [place] [address] Awais Cedeno MD, PhD, TOMY Lab Interpretation Abnormal (test code = 80738-9) [facility] HospitalPO[facility]SE [id number] 08:14:00 Test Item Value Reference Range Interpretation Comments POC-GLUCOSE METER 107 mg/dL 70-110 : Notified RN/: TESTED (CECILIO) (test code AT [facility] [address] = [address]) [facility] [address]: Thermostat Maker/Techni cornelia ID = [id number] for Chelsie Garland BASIC METABOLIC [id number] 05:19:00 Test Item Value Reference Range Interpretation [...] S NOT APPLICABLE FOR DIALYSIS PATIEN TS. Thermostat Maker ID - ANSBERTOGOperator ID - ANSBERTOGOperator ID - ANSBERTOGOperator ID - ANSBERTOGOperatorID - ANSBERTOGOperator ID - ANSBERTOGOperator ID - ANSBERTOGOperator ID - ANSBERTOGOperator ID - ANSBERTOGOperator ID - ANSBERTOGOperator ID - ANSBERTOGOperator ID - ANSBERTOGOperator ID - ANSBERTOG CBC W/PLT COUNT & AUTO [id number] 05:05:00 Test Item Value Reference Range Interpretation [...] PERCENT (BEAKER) (test code = 2801) POCT-GLUCOSE [id number] 22:18:00 Test Item Value Reference Range Interpretation Comments POC-GLUCOSE METER 190 mg/dL 70-110 H : TESTED A T [address] (BEAKER) (test code [address], = 15[address]) [place] [address]: Thermostat Maker/Techni cornelia ID = [id number] for Bruce etienne John POCT-GLUCOSE [id number] 15:30:00 Test Item Value Reference Range Interpretation Comments POC-GLUCOSE METER 197 mg/dL 70-110 H : TESTED A T [address] (BEAKER) ([facility] 15[facility] [place] [address]: Thermostat Maker/Techni cornelia ID = [id number] for Jesi Espinal Protein electrophoresis, [id number] 14:18:00 Test Item Value Reference Range Interpretation Comments Albumin Fraction 2.5 See_Comment L [Automated (test code = 405) message] biNu system which generated this result transmitted reference range : 3.5 - 5.5 gm/dL . The reference range was not used to interpr et this result as normal/abnormal . Alpha 1 Fraction 0.3 See_Comment [Automated (test code = 389) message] [employer]Nu system which generated this result transmitted reference range : 0.2 - 0.4 gm/dL . The reference range was not used to interpr et this result as normal/abnormal . Alpha 2 Fraction 0.8 See_Comment [Automated (test code = 390) message] [employer]Nu system which generated this result transmitted reference [...] 5.4 See_Comment L [Autom ated code = 7482) message] The system which generated this result transmitted reference range : 6.0 - 8.3 gm/dL . The reference range was not used to interpr et this result as normal/abnormal . ISSA (test code = ISSA) Thermostat Maker ID - PIAYA L Lab Interpretation Abnormal (test code = 06515-3) [facility]Protein electrophoresis, [id number] 14:18:00 Test Item Value Reference Range Interpretation [...] 5.4 See_Comment L [Autom ated code = 2775) message] The system which generated this result transmitted reference range : 6.0 - 8.3 gm/dL . The reference range was not used to interpr et this result as normal/abnormal . ISSA (test code = ISSA) Thermostat Maker ID - PIAYA L Lab Interpretation Abnormal (test code = 54820-6) [facility] HospitalProtein electrophoresis, [id number] 14:18:00 Test Item Value Reference Range Interpretation [...] 5.4 See_Comment L [Autom ated code = 1734) message] The system which generated this result transmitted reference range : 6.0 - 8.3 gm/dL . The reference range was not used to interpr et this result as normal/abnormal . ISSA (test code = ISSA) Thermostat Maker ID - PIAYA L Lab Interpretation Abnormal (test code = 82699-9) [facility]Protein electrophoresis, [id number] 14:18:00 Test Item Value Reference Range Interpretation Comments Albumin Fraction 2.5 See_Comment L [Automated (test code = 405) message] T he system which generated this result transmitted reference range : 3.5 - 5.5 gm/dL . The reference range was not used to interpr et this result as normal/abnormal . Alpha 1 Fraction 0.3 See_Comment [Automated (test code = 389) message] T [employer] system which generated this result transmitted reference range : 0.2 - 0.4 gm/dL . The reference range was not used to interpr et this result as normal/abnormal . Alpha 2 Fraction 0.8 See_Comment [Automated (test code = 390) message] T [employer] system which generated this result transmitted reference [...] 5.4 See_Comment L [Autom ated code = 5420) message] The system which generated this result transmitted reference range : 6.0 - 8.3 gm/dL . The reference range was not used to interpr et this result as normal/abnormal . ISSA (test code = ISSA) Thermostat Maker ID - PIAYA L Lab Interpretation Abnormal (test code = 60111-2) [facility] electrophoresis, [id number] 14:18:00 Test Item Value Reference Range Interpretation Comments Albumin Fraction 2.5 See_Comment L [Automated (test code = 405) message] T [employer] system which generated this result transmitted reference range : 3.5 - 5.5 gm/dL . The reference range was not used to interpr et this result as normal/abnormal . Alpha 1 Fraction 0.3 See_Comment [Automated (test code = 389) message] [employer]Nu system which generated this result transmitted reference range : 0.2 - 0.4 gm/dL . The reference range was not used to interpr et this result as normal/abnormal . Alpha 2 Fraction 0.8 See_Comment [Automated (test code = 390) message] [employer] system which generated this result transmitted reference [...] normal/abnormal . ISSA (test code = ISSA) Thermostat Maker ID - PIAYA L Lab Interpretation Abnormal (test code = 28448-9) [facility], [id number] 14:18:00 Test Item Value Reference Range Interpretation Comments Albumin Fraction 2.5 See_Comment L [Automated (test code = 405) message] T system which generated this result transmitted reference range : 3.5 - 5.5 gm/dL . The reference range was not used to interpr et this result as normal/abnormal . Alpha 1 Fraction 0.3 See_Comment [Automated (test code = 389) message] [employer]Nu system which generated this result transmitted reference range : 0.2 - 0.4 gm/dL . The reference range was not used to interpr et this result as normal/abnormal . Alpha 2 Fraction 0.8 See_Comment [Automated (test code = 390) message] [employer] system which generated this result transmitted reference [...] 5.4 See_Comment L [Autom ated code = 7674) message] The system which generated this result transmitted reference range : 6.0 - 8.3 gm/dL . The reference range was not used to interpr et this result as normal/abnormal . ISSA (test code = ISSA) Thermostat Maker ID - PIAYA L Lab Interpretation Abnormal (test code = 87835-2) [facility], [id number] 14:18:00 Test Item Value Reference Range Interpretation Comments Albumin Fraction 2.5 See_Comment L [Automated (test code = 405) message] [employer]Nu system which generated this result transmitted reference range : 3.5 - 5.5 gm/dL . The reference range was not used to interpr et this result as normal/abnormal . Alpha 1 Fraction 0.3 See_Comment [Automated (test code = 389) message] [employer]Nu system which generated this result transmitted reference range : 0.2 - 0.4 gm/dL . The reference range was not used to interpr et this result as normal/abnormal . Alpha 2 Fraction 0.8 See_Comment [Automated (test code = 390) message] T [employer] system which generated this result transmitted reference [...] normal/abnormal . ISSA (test code = ISSA) Thermostat Maker ID - PIAYA L Lab Interpretation Abnormal (test code = 60640-6) [facility] HospitalPROTEIN ELECTROPHORESIS, [id number] 14:18:00 Test Item Value Reference Range Interpretation [...] of acute inflammation. No monoclonal bands detected. [id number] Angela Howe MD (BEAKER) (test code = (electronic signature) 2616) PROTEIN TOTAL SERUM, 5.4 gm/dL 6.0-8.3 L SPEP (BEAKER) (test code = 2660) Thermostat Maker ID - PAVEL LANAEROBIC [id number] 14:06:00 Test Item Value Reference Range Interpretation Comments CULTURE (BEAKER) (test No anaerobes isolated code = 1095) ANAEROBIC [id number] 14:05:00 Test Item Value Reference Range Interpretation Comments CULTURE (BEAKER) (test No anaerobes isolated code = 1095) POCT-GLUCOSE [id number] 11:50:00 Test Item Value Reference Range Interpretation Comments POC-GLUCOSE METER 151 mg/dL 70-110 H : TESTED Obdulia Carter [address] (CECILIO) (test code [address], = 1538) [facility] [place] [address]: Thermostat Maker/Techni cornelia ID = [id number] for Buff justyn, Jesi ANG, NON-TUNNELED CATH/PICC >5 Y.O. 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 Okay to place per [facility] : 1975 Sex: MFINAL REPORT Procedure: PICC line insertion. History: Need for long-term IV access. [employer]: Charlie Grigsby MD. Acid Pumper: None Modality: Sonography and fluoroscopy. DOSE REDUCTION: [...] and fluoroscopic guided placement of a 5 [place] dual lumen PICC line via a right mid upper arm brachial vein approach with the catheter tip in distal SVC/RA, a satisfactory position for use. Thank you for the opportunity to assist in the care of your patient. Signed: Charlie Grigsby MDReport Verified Date/Time: 04/05/2020 11:32:55 Reading Location: [facility] Radiology Reading Room IR PICC line placement older than 5 [id number] 11:32:00 Interface, External Ris In - 04/05/2020 11:35 AM CSTFINAL REPORT Procedure: PICC line insertion. History: Need for long-term IV access. [employer]: Charlie Grigsby MD. Acid Pumper: None Modality: Sonography and fluoroscopy. DOSE REDUCTION: [...] and fluoroscopic guided placement of a 5 [place] dual lumen PICC line via a right mid upper arm brachial vein approach with the catheter tip in distal SVC/RA, a satisfactory position for use. Thank you for the opportunity to assist in the care of your patient. Signed: Cahrlie Grigsby MDReport Verified Date/Time: 04/05/2020 11:32:55 Reading Location: [facility] than 5 [id number] 11:32:00 Interface, External Ris In - 04/05/2020 11:35 AM CSTFINAL REPORT Procedure: PICC line insertion. History: Need for long-term IV access. [employer]: Charlie Grigsby MD. Acid Pumper: None Modality: Sonography and fluoroscopy. DOSE REDUCTION: [...] and fluoroscopic guided placement of a 5 [place] dual lumen PICC line via a right mid upper arm brachial vein approach with the catheter tip in distal SVC/RA, a satisfactory position for use. Thank you for the opportunity to assist in the care of your patient. Signed: Charlie Grigsby MDReport Verified Date/Time: 04/05/2020 11:32:55 Reading Location: [facility] Radiology Reading [facility] older than 5 [id number] 11:32:00 Interface, External Ris In - 04/05/2020 11:35 AM CSTFINAL REPORT Procedure: PICC line insertion. History: Need for long-term IV access. [employer]: Charlie Grigsby MD. Acid Pumper: None Modality: Sonography and fluoroscopy. DOSE REDUCTION: [...] and fluoroscopic guided placement of a 5 [place] dual lumen PICC line via a right mid upper arm brachial vein approach with the catheter tip in distal SVC/RA, a satisfactory position for use. Thank you for the opportunity to assist in the care of your patient. Signed: Charlie Grigsby Verified Date/Time: 04/05/2020 11:32:55 Reading Location: [facility] Radiology Reading [facility] older than 5 [id number] 11:32:00 Interface, External Ris In - 04/05/2020 11:35 AM CSTFINAL REPORT Procedure: PICC line insertion. History: Need for long-term IV access. [employer]: Charlie Grigsby MD. Acid Pumper: None Modality: Sonography and fluoroscopy. DOSE REDUCTION: [...] and fluoroscopic guided placement of a 5 [place] dual lumen PICC line via a right mid upper arm brachial vein approach with the catheter tip in distal SVC/RA, a satisfactory position for use. Thank you for the opportunity to assist in the care of your patient. Signed: Charlie Grigsby MDReport Verified Date/Time: 04/05/2020 11:32:55 Reading Location: [facility] Radiology Reading Room [facility] [id number] 09:34:00 Test Item Value Reference Range Interpretation Comments POC-GLUCOSE METER 72 mg/dL 70-110 : TESTED A T [address] (BEAKER) (test code = [address], [address]) [facility] [address]: Thermostat Maker/Techni cornelia ID = [id number] for ChenchoRina moser POCT-GLUCOSE [id number] 08:11:00 Test Item Value Reference Range Interpretation Comments POC-GLUCOSE METER 83 mg/dL 70-110 : TESTED A T [facility] [address] (BEAKER) (test code = [address], [address]) [facility] [address]: Thermostat Maker/Techni cornelia ID = [id number] for Buff ord, Jesi BASIC METABOLIC [id number] 06:57:00 Test Item Value Reference Range Interpretation [...] S NOT APPLICABLE FOR DIALYSIS PATIEN TS. Thermostat Maker ID - LITOOperator ID - LITOOperator ID - LITOOperator ID - LITOOperator ID - LITOOperator ID - LITOOperator ID - LITOOperator ID - LITOOperator ID - LITOOperator ID - LITOOperator ID - LITOOperator ID - LITOOperator ID - LITOCBC W/PLT COUNT & AUTO [id number] 05:55:00 Test Item Value Reference Range Interpretation [...] = No growth in 5 days 6463-4) [facility]2020-04-05 01:01:00 Test Item Value Reference Range Interpretation Comments Result (test code = No growth in 5 days 6463-4) [facility] Culture - Routine (Left Venipuncture)2020-04-05 01:01:00 Test Item Value Reference Range Interpretation Comments Result (test code = No growth in 5 days 6463-4) [facility] Culture - Routine (Left Venipuncture)2020-04-05 01:01:00 Test Item Value Reference Range Interpretation Comments Result (test code = No growth in 5 days 6463-4) [facility] Culture - Routine (Left Venipuncture)2020-04-05 01:01:00 Test Item Value Reference Range Interpretation Comments Result (test code = No growth in 5 days 6463-4) [facility] Culture - Routine (Left Venipuncture)2020-04-05 01:01:00 Test Item Value Reference Range Interpretation Comments Result (test code = No growth in 5 days 6463-4) [facility] Culture - Routine (Left Venipuncture)2020-04-05 01:01:00 Test Item Value Reference Range Interpretation Comments Result (test code = No growth in 5 days 6463-4) [facility] [id number] 01:01:00 Test Item Value Reference Range Interpretation Comments CULTURE (BEAKER) (test No growth in 5 days code = 1095) BLOOD [id number] 01:01:00 Test Item Value Reference Range Interpretation Comments CULTURE (BEAKER) (test No growth in 5 days code = 1095) Vancomycin level, [id number] 00:11:00 Test Item Value Reference Range Interpretation Comments Vancomycin Tr (test code = 17.1 ug/mL 10-20 4092-3) ISSA (test code = ISSA) Thermostat Maker ID - ARCHIE Lab Interpretation (test Normal code = 76006-4) [facility], [id number] 00:11:00 Test Item Value Reference Range Interpretation Comments Vancomycin Tr (test code = 17.1 ug/mL 10-20 4092-3) ISSA (test code = ISSA) Thermostat Maker ID - ARCHIE Lab Interpretation (test Normal code = 60546-7) [facility] [id number] 00:11:00 Test Item Value Reference Range Interpretation Comments Vancomycin Tr (test code = 17.1 ug/mL 10-20 4092-3) ISSA (test code = ISSA) Thermostat Maker ID - ARCHIE Lab Interpretation (test Normal code = 37248-4) [facility], [id number] 00:11:00 Test Item Value Reference Range Interpretation Comments Vancomycin Tr (test code = 17.1 ug/mL 10-20 4092-3) ISSA (test code = ISSA) Thermostat Maker ID - ARCHIE Lab Interpretation (test Normal code = 03426-1) [facility], [id number] 00:11:00 Test Item Value Reference Range Interpretation Comments Vancomycin Tr (test code = 17.1 ug/mL 10.0-20.0 4092-3) ISSA (test code = ISSA) Thermostat Maker ID - ARCHIE Lab Interpretation (test Normal code = 54849-9) [facility], [id number] 00:11:00 Test Item Value Reference Range Interpretation Comments Vancomycin Tr (test code = 17.1 ug/mL 10.0-20.0 4092-3) ISSA (test code = ISSA) Thermostat Maker ID - ARCHIE Lab Interpretation (test Normal code = 56200-5) [facility] [id number] 00:11:00 Test Item Value Reference Range Interpretation Comments Vancomycin Tr (test code = 17.1 ug/mL 10.0-20.0 4092-3) ISSA (test code = ISSA) Thermostat Maker ID - ARCHIE Lab Interpretation (test Normal code = 14224-2) [facility] LEVEL, [id number] 00:11:00 Test Item Value Reference Range Interpretation Comments VANCOMYCIN TROUGH (BEAKER) (test 17.1 ug/mL 10.0-20.0 code = 522) Thermostat Maker ID - LITOPOCT-GLUCOSE [id number] 21:26:00 Test Item Value Reference Range Interpretation Comments POC-GLUCOSE METER 234 mg/dL 70-110 H : TESTED A T [facility] [address] (BEAKER) (test code [address], = 1538) [place] [address]: Thermostat Maker/Techni cornelia ID = [id number] for Tiff Roach POCT-GLUCOSE [id number] 15:54:00 Test Item Value Reference Range Interpretation Comments POC-GLUCOSE METER 200 mg/dL 70-110 H : TESTED A T [facility] [address] (BEAKER) (test code [address], = 1538) [place] [address]: Thermostat Maker/Techni cornelia ID = [id number] for Tiff Roach POCT-GLUCOSE [id number] 11:48:00 Test Item Value Reference Range Interpretation Comments POC-GLUCOSE METER 197 mg/dL 70-110 H : TESTED A T [facility] [address] (BEAKER) (test code [address], = 1538) [place] [address]: Thermostat Maker/Techni cornelia ID = [id number] for Tiff Roach Hepatitis panel, [id number] 10:58:00 Test Item Value Reference Range Interpretation Comments Hep A IgM (test code = Nonreactive Nonreactive 55933-7) Hep B C IgM (test code = Nonreactive Nonreactive 78701-7) Hepatitis C Ab (test Nonreactive Nonreactive code = 70225-5) HBsAg Screen (test code Nonreactive Nonreactive = 5195-3) ISSA (test code = ISSA) Thermostat Maker ID - BARRERA M Lab Interpretation (test Normal code = 28289-4) [facility], [id number] 10:58:00 Test Item Value Reference Range Interpretation Comments Hep A IgM (test code = Nonreactive Nonreactive 94075-7) Hep B C IgM (test code = Nonreactive Nonreactive 92448-4) Hepatitis C Ab (test Nonreactive Nonreactive code = 25602-1) HBsAg Screen (test code Nonreactive Nonreactive = 5195-3) ISSA (test code = ISSA) Thermostat Maker ID - BARRERA M Lab Interpretation (test Normal code = 70067-9) [facility] panel, [id number] 10:58:00 Test Item Value Reference Range Interpretation Comments Hep A IgM (test code = Nonreactive Nonreactive 43399-9) Hep B C IgM (test code = Nonreactive Nonreactive 71513-8) Hepatitis C Ab (test Nonreactive Nonreactive code = 26720-9) HBsAg Screen (test code Nonreactive Nonreactive = 5195-3) ISSA (test code = ISSA) Thermostat Maker ID - BARRERA M Lab Interpretation (test Normal code = 95774-8) [facility] panel, [id number] 10:58:00 Test Item Value Reference Range Interpretation Comments Hep A IgM (test code = Nonreactive Nonreactive 32927-1) Hep B C IgM (test code = Nonreactive Nonreactive 71623-2) Hepatitis C Ab (test Nonreactive Nonreactive code = 09202-0) HBsAg Screen (test code Nonreactive Nonreactive = 5195-3) ISSA (test code = ISSA) Thermostat Maker ID - BARRERA M Lab Interpretation (test Normal code = 78599-2) [facility] panel, [id number] 10:58:00 Test Item Value Reference Range Interpretation Comments Hep A IgM (test code = Nonreactive Nonreactive 35999-8) Hep B C IgM (test code = Nonreactive Nonreactive 12327-3) Hepatitis C Ab (test Nonreactive Nonreactive code = 87234-5) HBsAg Screen (test code Nonreactive Nonreactive = 5195-3) ISSA (test code = ISSA) Thermostat Maker ID - BARRERA M Lab Interpretation (test Normal code = 08847-6) [facility] panel, [id number] 10:58:00 Test Item Value Reference Range Interpretation Comments Hep A IgM (test code = Nonreactive Nonreactive 70516-0) Hep B C IgM (test code = Nonreactive Nonreactive 41890-3) Hepatitis C Ab (test Nonreactive Nonreactive code = 35846-8) HBsAg Screen (test code Nonreactive Nonreactive = 5195-3) ISSA (test code = ISSA) Thermostat Maker ID - BARRERA M Lab Interpretation (test Normal code = 42607-6) [facility], [id number] 10:58:00 Test Item Value Reference Range Interpretation Comments Hep A IgM (test code = Nonreactive Nonreactive 12413-3) Hep B C IgM (test code = Nonreactive Nonreactive 89339-8) Hepatitis C Ab (test Nonreactive Nonreactive code = 62554-6) HBsAg Screen (test code Nonreactive Nonreactive = 5195-3) ISSA (test code = ISSA) Thermostat Maker ID - BARRERA M Lab Interpretation (test Normal code = 70057-1) [facility], [id number] 10:58:00 Test Item Value Reference Range Interpretation Comments HEPATITIS A IGM ANTIBODY (BEAKER) Nonreactive Nonreactive (test code = 498) HEPATITIS B CORE IGM ANTIBODY Nonreactive Nonreactive (BEAKER) (test code = 645) HEPATITIS C ANTIBODY (BEAKER) Nonreactive Nonreactive (test code = 367) HEPATITIS B SURFACE ANTIGEN (2) Nonreactive Nonreactive (BEAKER) (test code = 2585) Thermostat Maker ID - BARRERA MUREA NITROGEN, RANDOM [id number] 10:45:00 Test Item Value Reference Range Interpretation Comments UREA NITROGEN URINE (BEAKER) (test 528 mg/dL code = 538) Reference Range: No NormalsOperator ID - BARRERA MSURGICALLY OBTAINED CULTURE + GRAM [id number] 10:30:00 Test Item Value Reference Range Interpretation Comments CULTURE (BEAKER) A <1+ Coagula se negative (test code = Staphylococcus 1095) GRAM STAIN No WBCs RESULT (BEAKER) (test code = 1123) GRAM STAIN 2+ gram positive RESULT (BEAKER) cocci in pairs (test code = and clusters 381411) SURGICALLY OBTAINED CULTURE + GRAM [id number] 09:52:00 Test Item Value Reference Range Interpretation Comments CULTURE (BEAKER) A <1+ Viridan s (test code = Streptococcus 1095) GRAM STAIN No WBCs RESULT (BEAKER) (test code = 1123) GRAM STAIN No organisms seen RESULT (BEAKER) (test code = 923992) TISSUE [id number] 09:51:00Surgical Pathology Report Case: [id number] Authorizing Provider: Laura Nguyen DPM Collected: 04/01/2020 01:12 PM Ordering Location: [facility] Surg 5th Floor Received: 04/02/2020 08:38 AM Pathologist: Hilda Mack MD Specimen: Fo ot, Left, Bone biopsy 1st metatarsal, left BONE, FIRST LEFT METATARSAL, BIOPSY: - BONE WITH FOCAL REPARATIVE/REGENERATIVE CHANGES - NO ACUTE OSTEOMYELITIS ISSEEN Signing Pathologist Direct Phone Line: [phone] signed by Hilda Mack MD on 04/04/2020 at 9:51 [id number]; [id number] infectionBone biopsy first metatarsal, leftThespecimen is received in fixative and labeled with the patient's name, medical record number and designated as "foot left" and consists of a bone core biopsy measuring 1.5 cm in length and 0.2 cm in diameter. The specimen is entirely submitted into A1 and into decal solution. MG/pl Performed [facility], Department of Pathology, [address] [place] [address], [facility], [address] [place] [address], [facility] of [facility]ology, [address] [place] [address], PVDO-GLUCOSE METER 2020-04-04 08:22:00 Test Item Value Reference Range Interpretation Comments POC-GLUCOSE METER 167 mg/dL 70-110 H : TESTED A T [facility] (BEAKER) (test [facility] [address], = [address]) [place] [address]: Thermostat Maker/Techni cornelia ID = [id number] for Tiff Roach PTH, [id number] 07:24:00 Test Item Value Reference Range Interpretation Comments PARATHYROID HORMONE INTACT 365.7 pg/mL 15.0-90.0 H ([facility]) (test code = 577) Thermostat Maker ID - [id number] METABOLIC [id number] 06:33:00 Test Item Value Reference Range Interpretation [...] S NOT APPLICABLE FOR DIALYSIS PATIEN TS. Thermostat Maker ID - [id number] ID - [id number] ID - [id number] ID - [id number] ID - [id number] ID - [id number] ID - [id number] ID - [id number] ID - [id number] ID - [id number] ID - [id number] ID - [id number] ID - [id number] W/PLT COUNT & AUTO [id number] 06:01:00 Test Item Value Reference Range Interpretation [...] PERCENT (BEAKER) (test code = 2801) POCT-GLUCOSE [id number] 21:43:00 Test Item Value Reference Range Interpretation Comments POC-GLUCOSE METER 242 mg/dL 70-110 H : TESTED A T [facility] [address] (BEAKER) (test code [address], = 1538) [facility] [address]: Thermostat Maker/Techni cornelia ID = [id number] for Heidy Barrow HIV-1 Antigen with HIV-1/2 [id number] 18:37:00 Test Item Value Reference Range Interpretation Comments HIV-1 Antigen with HIV Nonreactive Nonreactive 1&2 Antibody (test code = 10602-0) ISSA (test code = ISSA) Thermostat Maker ID - [id number] Lab Interpretation (test Normal code = 63085-7) [facility] HIV-1/2 [id number] 18:37:00 Test Item Value Reference Range Interpretation Comments HIV-1 Antigen with HIV Nonreactive Nonreactive 1&2 Antibody (test code = 75326-2) ISSA (test code = ISSA) Thermostat Maker ID - [id number] Lab Interpretation (test Normal code = 67042-7) [facility] Antigen with HIV-1/2 [id number] 18:37:00 Test Item Value Reference Range Interpretation Comments HIV-1 Antigen with HIV Nonreactive Nonreactive 1&2 Antibody (test code = 72659-7) ISSA (test code = ISSA) Thermostat Maker ID - [id number] Lab Interpretation (test Normal code = 19991-2) [facility] Antigen with HIV-1/2 [id number] 18:37:00 Test Item Value Reference Range Interpretation Comments HIV-1 Antigen with HIV Nonreactive Nonreactive 1&2 Antibody (test code = 14975-2) ISSA (test code = ISSA) Thermostat Maker ID - [id number] Lab Interpretation (test Normal code = 25563-9) [facility] Antigen with HIV-1/2 [id number] 18:37:00 Test Item Value Reference Range Interpretation Comments HIV-1 Antigen with HIV Nonreactive Nonreactive 1&2 Antibody (test code = 44368-0) ISSA (test code = ISSA) Thermostat Maker ID - [id number] Lab Interpretation (test Normal code = 34726-9) [facility] Antigen with HIV-1/2 [id number] 18:37:00 Test Item Value Reference Range Interpretation Comments HIV-1 Antigen with HIV Nonreactive Nonreactive 1&2 Antibody (test code = 93775-4) ISSA (test code = ISSA) Thermostat Maker ID - [id number] Lab Interpretation (test Normal code = 21857-8) [facility] Antigen with HIV-1/2 [id number] 18:37:00 Test Item Value Reference Range Interpretation Comments HIV-1 Antigen with HIV Nonreactive Nonreactive 1&2 Antibody (test code = 38875-9) ISSA (test code = ISSA) Thermostat Maker ID - [id number] Lab Interpretation (test Normal code = 09438-1) [facility] ANTIGEN WITH HIV-1/2 [id number] 18:37:00 Test Item Value Reference Range Interpretation Comments HIV-1 ANTIGEN WITH HIV 1\\T\\2 Nonreactive Nonreactive ANTIBODY (2) (BEAKER) (test code = 2586) Thermostat Maker ID - [id number] METABOLIC [id number] 17:38:00 Test Item Value Reference Range Interpretation [...] S NOT APPLICABLE FOR DIALYSIS PATIEN TS. Thermostat Maker ID - [id number] ID - [id number] ID - [id number] ID - [id number] ID - [id number] ID - [id number] ID - [id number] ID - [id number] ID - [id number] ID - [id number] ID - [id number] ID - [id number] ID - [id number] W/PLT COUNT & AUTO [id number] 17:24:00 Test Item Value Reference Range Interpretation [...] PERCENT (BEAKER) (test code = 2801) POCT-GLUCOSE [id number] 16:16:00 Test Item Value Reference Range Interpretation Comments POC-GLUCOSE METER 228 mg/dL 70-110 H : TESTED A T [facility] [address] (BEAKER) (test code [address], = 1538) [facility] [address]: Thermostat Maker/Techni cornelia ID = [id number] for Tiff Roach WOUND CULTURE + GRAM [id number] 14:46:00 Test Item Value Reference Interpretation Comments [...] 4+ Mixed geri (BEAKER) (test code = 362982) 3+ Skin floraPOCT-GLUCOSE [id number] 11:46:00 Test Item Value Reference Range Interpretation Comments POC-GLUCOSE METER 251 mg/dL 70-110 H : TESTED A T [facility] [address] (BEAKER) (test code [address], = 1538) [facility] [address]: Thermostat Maker/Techni cornelia ID = [id number] for Tiff Roach PROTEIN, RANDOM [id number] 11:18:00 Test Item Value Reference Range Interpretation Comments PROTEIN, URINE (BEAKER) (test code 214 mg/dL 0-14 H = 1569) Thermostat Maker ID - [id number] ID - [id number], RANDOM [id number] 11:02:00 Test Item Value Reference Range Interpretation Comments CREATININE URINE (BEAKER) (test 129.1 mg/dL code = 375) Reference Range: No NormalsOperator ID - [id number], RANDOM [id number] 11:00:00 Test Item Value Reference Range Interpretation Comments SODIUM URINE (BEAKER) (test code = 20 meq/L 243) Reference Range: No NormalsOperator ID - [id number] 11:00:00 Test Item Value Reference Range Interpretation Comments PHOSPHORUS (BEAKER) (test code = 5.0 mg/dL 2.5-4.5 H 604) Thermostat Maker ID - [id number] w/Deqrjingvde9835-77-32 10:57:00 Test Item Value Reference Range Interpretation Comments Color, UA (test code Yellow = 5778-6) Clarity, UA (test Slightly Cloudy code = 5767-9) Specific [place], UA 1.025 1.001-1.035 (test code = 5811-5) pH, UA (test code = 5.0 5.0-8.0 5803-2) Protein, UA (test 100 mg/dL Negative A code = 25214-5) Glucose, UA (test Negative Negative code = 365) Ketones, UA (test Negative Negative code = 2514-8) Bilirubin, UA (test Negative Negative code = 89404-9) Blood, UA (test code Small Negative A = 84638-0) Nitrite, UA (test Negative Negative code = 5802-4) Leukocytes, UA (test Negative Negative code = 5799-2) Urobilinogen, UA 0.2 mg/dL 0.2-1 (test code = 29596-0) Bacteria, UA (test Occasional code = 50334-3) RBC, UA (test code = 5-10 See_Comment [Autom ated 799-7) message] The system which generated this result transmitted reference range : /HPF. The reference range was not used to interpret this result as normal/abnormal . WBC, UA (test code = <5 See_Comment [Autom ated 84104-5) message] The system which generated this result transmitted reference range : /HPF. The reference range was not used to interpret this result as normal/abnormal . SQUAMOUS EPITHELIAL <5 See_Comment [Automa josé luis (test code = 84976-5) messag e] The system which generated this result transmitted reference range : /HPF. The reference range was not used to interpret this result as normal/abnormal . Specimen Source (test code = 2795) Lab Interpretation Abnormal (test code = 82334-1) [facility]inal[facility] w/Iocstnrlpws0214-82-01 10:57:00 Test Item Value Reference Range Interpretation Comments Color, UA (test code Yellow = 5778-6) Clarity, UA (test Slightly Cloudy code = 5767-9) Specific [place], UA 1.025 1.001-1.035 (test code = 5811-5) pH, UA (test code = 5.0 5.0-8.0 5803-2) Protein, UA (test 100 mg/dL Negative A code = 30625-2) Glucose, UA (test Negative Negative code = 365) Ketones, UA (test Negative Negative code = 2514-8) Bilirubin, UA (test Negative Negative code = 66437-4) Blood, UA (test code Small Negative A = 80377-6) Nitrite, UA (test Negative Negative code = 5802-4) Leukocytes, UA (test Negative Negative code = 5799-2) Urobilinogen, UA 0.2 mg/dL 0.2-1 (test code = 02701-5) Bacteria, UA (test Occasional code = 65778-0) RBC, UA (test code = 5-10 See_Comment [Autom ated 799-7) message] The system which generated this result transmitted reference range : /HPF. The reference range was not used to interpret this result as normal/abnormal . WBC, UA (test code = <5 See_Comment [Autom ated 65273-1) message] The system which generated this result transmitted reference range : /HPF. The reference range was not used to interpret this result as normal/abnormal . SQUAMOUS EPITHELIAL <5 See_Comment [Automa josé luis (test code = 57475-5) messag e] The system which generated this result transmitted reference range : /HPF. The reference range was not used to interpret this result as normal/abnormal . Specimen Source (test code = 2795) Lab Interpretation Abnormal (test code = 95277-2) [facility]/Ndfliuoednz5033-35-50 10:57:00 Test Item Value Reference Range Interpretation Comments Color, UA (test code Yellow = 5778-6) Clarity, UA (test Slightly Cloudy code = 5767-9) Specific [place], UA 1.025 1.001-1.035 (test code = 5811-5) pH, UA (test code = 5.0 5.0-8.0 5803-2) Protein, UA (test 100 mg/dL Negative A code = 60980-2) Glucose, UA (test Negative Negative code = 365) Ketones, UA (test Negative Negative code = 2514-8) Bilirubin, UA (test Negative Negative code = 67406-7) Blood, UA (test code Small Negative A = 44506-6) Nitrite, UA (test Negative Negative code = 5802-4) Leukocytes, UA (test Negative Negative code = 5799-2) Urobilinogen, UA 0.2 mg/dL 0.2-1 (test code = 54082-8) Bacteria, UA (test Occasional code = 65690-4) RBC, UA (test code = 5-10 See_Comment [Autom ated 799-7) message] The system which generated this result transmitted reference range : /HPF. The reference range was not used to interpret this result as normal/abnormal . WBC, UA (test code = <5 See_Comment [Autom ated 22726-7) message] The system which generated this result transmitted reference range : /HPF. The reference range was not used to interpret this result as normal/abnormal . SQUAMOUS EPITHELIAL <5 See_Comment [Automa josé luis (test code = 32224-6) messag e] The system which generated this result transmitted reference range : /HPF. The reference range was not used to interpret this result as normal/abnormal . Specimen Source (test code = 2795) Lab Interpretation Abnormal (test code = 53659-3) [facility] w/Nkaptwhycze5501-88-72 10:57:00 Test Item Value Reference Range Interpretation Comments Color, UA (test code Yellow = 5778-6) Clarity, UA (test Slightly Cloudy code = 5767-9) Specific [place], UA 1.025 1.001-1.035 (test code = 5811-5) pH, UA (test code = 5.0 5.0-8.0 5803-2) Protein, UA (test 100 mg/dL Negative A code = 72733-3) Glucose, UA (test Negative Negative code = 365) Ketones, UA (test Negative Negative code = 2514-8) Bilirubin, UA (test Negative Negative code = 78612-1) Blood, UA (test code Small Negative A = 50704-2) Nitrite, UA (test Negative Negative code = 5802-4) Leukocytes, UA (test Negative Negative code = 5799-2) Urobilinogen, UA 0.2 mg/dL 0.2-1 (test code = 17086-0) Bacteria, UA (test Occasional code = 90889-9) RBC, UA (test code = 5-10 See_Comment [Autom ated 799-7) message] The system which generated this result transmitted reference range : /HPF. The reference range was not used to interpret this result as normal/abnormal . WBC, UA (test code = <5 See_Comment [Autom ated 51692-4) message] The system which generated this result transmitted reference range : /HPF. The reference range was not used to interpret this result as normal/abnormal . SQUAMOUS EPITHELIAL <5 See_Comment [Automa josé luis (test code = 98058-5) messag e] The system which generated this result transmitted reference range : /HPF. The reference range was not used to interpret this result as normal/abnormal . Specimen Source (test code = 2795) Lab Interpretation Abnormal (test code = 66024-6) [facility] w/Ocojdunooow7269-76-37 10:57:00 Test Item Value Reference Range Interpretation Comments Color, UA (test code Yellow = 5778-6) Clarity, UA (test Slightly Cloudy code = 5767-9) Specific [place], UA 1.025 1.001-1.035 (test code = 5811-5) pH, UA (test code = 5.0 5.0-8.0 5803-2) Protein, UA (test 100 mg/dL Negative A code = 36765-1) Glucose, UA (test Negative Negative code = 365) Ketones, UA (test Negative Negative code = 2514-8) Bilirubin, UA (test Negative Negative code = 36277-9) Blood, UA (test code Small Negative A = 60870-1) Nitrite, UA (test Negative Negative code = 5802-4) Leukocytes, UA (test Negative Negative code = 5799-2) Urobilinogen, UA 0.2 mg/dL 0.2-1.0 (test code = 70237-2) Bacteria, UA (test Occasional code = 90699-9) RBC, UA (test code = 5-10 See_Comment [Autom ated 799-7) message] The system which generated this result transmitted reference range : /HPF. The reference range was not used to interpret this result as normal/abnormal . WBC, UA (test code = <5 See_Comment [Autom ated 06715-5) message] The system which generated this result transmitted reference range : /HPF. The reference range was not used to interpret this result as normal/abnormal . SQUAMOUS EPITHELIAL <5 See_Comment [Automa josé luis (test code = 06654-0) messag e] The system which generated this result transmitted reference range : /HPF. The reference range was not used to interpret this result as normal/abnormal . Specimen Source (test code = 2795) Lab Interpretation Abnormal (test code = 29703-4) [facility]/Thnkxbtdotv3475-36-80 10:57:00 Test Item Value Reference Range Interpretation Comments Color, UA (test code Yellow = 5778-6) Clarity, UA (test Slightly Cloudy code = 5767-9) Specific [place], UA 1.025 1.001-1.035 (test code = 5811-5) pH, UA (test code = 5.0 5.0-8.0 5803-2) Protein, UA (test 100 mg/dL Negative A code = 61045-6) Glucose, UA (test Negative Negative code = 365) Ketones, UA (test Negative Negative code = 2514-8) Bilirubin, UA (test Negative Negative code = 99196-1) Blood, UA (test code Small Negative A = 46015-3) Nitrite, UA (test Negative Negative code = 5802-4) Leukocytes, UA (test Negative Negative code = 5799-2) Urobilinogen, UA 0.2 mg/dL 0.2-1.0 (test code = 55648-7) Bacteria, UA (test Occasional code = 45954-9) RBC, UA (test code = 5-10 See_Comment [Autom ated 799-7) message] The system which generated this result transmitted reference range : /HPF. The reference range was not used to interpret this result as normal/abnormal . WBC, UA (test code = <5 See_Comment [Autom ated 29577-0) message] The system which generated this result transmitted reference range : /HPF. The reference range was not used to interpret this result as normal/abnormal . SQUAMOUS EPITHELIAL <5 See_Comment [Automa josé luis (test code = 00038-2) messag e] The system which generated this result transmitted reference range : /HPF. The reference range was not used to interpret this result as normal/abnormal . Specimen Source (test code = 2795) Lab Interpretation Abnormal (test code = 36252-5) [facility] w/Coyefsedzmb4738-47-50 10:57:00 Test Item Value Reference Range Interpretation Comments Color, UA (test code Yellow = 5778-6) Clarity, UA (test Slightly Cloudy code = 5767-9) Specific [place], UA 1.025 1.001-1.035 (test code = 5811-5) pH, UA (test code = 5.0 5.0-8.0 5803-2) Protein, UA (test 100 mg/dL Negative A code = 51956-5) Glucose, UA (test Negative Negative code = 365) Ketones, UA (test Negative Negative code = 2514-8) Bilirubin, UA (test Negative Negative code = 96246-0) Blood, UA (test code Small Negative A = 00528-3) Nitrite, UA (test Negative Negative code = 5802-4) Leukocytes, UA (test Negative Negative code = 5799-2) Urobilinogen, UA 0.2 mg/dL 0.2-1.0 (test code = 67712-9) Bacteria, UA (test Occasional code = 57277-4) RBC, UA (test code = 5-10 See_Comment [Autom ated 799-7) message] The system which generated this result transmitted reference range : /HPF. The reference range was not used to interpret this result as normal/abnormal . WBC, UA (test code = <5 See_Comment [Autom ated 73846-4) message] The system which generated this result transmitted reference range : /HPF. The reference range was not used to interpret this result as normal/abnormal . SQUAMOUS EPITHELIAL <5 See_Comment [Automa josé luis (test code = 97169-5) messag e] The system which generated this result transmitted reference range : /HPF. The reference range was not used to interpret this result as normal/abnormal . Specimen Source (test code = 2795) Lab Interpretation Abnormal (test code = 34574-5) [facility] [id number] 10:57:00 Test Item Value Reference Range Interpretation [...] pg/mL 0-100 H (test code = 700) Thermostat Maker ID - [id number], RENAL, [id number] 08:56:00Reason for exam:- >[facility]: FRANDY FORD : 1975 Sex: MFINAL REPORT [...] Ortizeport Verified Date/Time: 04/03/2020 08:56:12 Reading Location: [facility] Radiology Reading Room CT, EXTREMITY, LOWER WITHOUT CONTRAST, [id number] 08:50:00Unlisted Reason for Exam - Click Yes and Enter Reason Below->YesL Foot woundUnlisted Reason for Exam->L Foot infection to r/o osteomyelitisPlease specify:->[facility] 1975 Sex: MFINAL [...] Gonzales Verified Date/Time: 04/03/2020 08:50:03 Reading Location: [facility] Ortho Consult Reading Room CT lower extremity without IV contrast [id number] 08:50:00Interface, External Ris In - 04/03/2020 8:52 [...] Gonzales Verified Date/Time: 04/03/2020 08:50:03 Reading Location: [facility] [id number] 08:50:00 Interface, External Ris In - 04/03/2020 [...] MDReport Verified Date/Time: 04/03/2020 08:50:03 Reading Location: [facility] C0X [facility] [id number] 08:50:00Interface, External Ris In - 04/03/2020 8:52 [...] Gonzales Verified Date/Time: 04/03/2020 08:50:03 Reading Location: [address] [facility] [id number] 08:50:00Interface, External Ris In - 04/03/2020 8:52 [...] Gonzales Verified Date/Time: 04/03/2020 08:50:03 Reading Location: [facility] C0X Ortho Consult Reading Room [facility] POCT-GLUCOSE [id number] 07:39:00 Test Item Value Reference Range Interpretation Comments POC-GLUCOSE METER 178 mg/dL 70-110 H : TESTED A T [facility] 1317 (BEAKER) (test code [address], = 1538) [facility] 77 478: Thermostat Maker/Techni cornelia ID = [id number] for Tiff Roach BASIC METABOLIC [id number] 06:16:00 Test Item Value Reference Range Interpretation [...] S NOT APPLICABLE FOR DIALYSIS PATIEN TS. Thermostat Maker ID - LITOOperator ID - LITOOperator ID - LITOOperator ID - LITOOperator ID - LITOOperator ID - LITOOperator ID - LITOOperator ID - LITOOperator ID - LITOOperator ID - LITOOperator ID - LITOOperator ID - LITOOperator ID - LITOCBC (Hemogram only)2020-04-03 05:47:00 Test Item Value Reference Range Interpretation Comments WBC (test code = 6690-2) 8.9 See_Comment [A utomated message] The system [employer] generated this result transmitted ref erence range: 4.0 - 10 .0 K/L. The refe rence range was not u sed to interpret this result as normal/abnor mal. RBC (test code = 789-8) 3.59 See_Comment L [Au tomated message] The system [employer] generated this result transmitted ref erence range: 4.20 - 5 .80 M/L. The refe rence range was not u sed to interpret this result as normal/abnor mal. MCHC (test code = 786-4) 32.4 See_Comment L [A utomated message] The system [employer] generated this result transmitted ref erence range: [...] See_Comment [Aut omated message] 777-3) The system [employer] generated this result transmitted ref erence range: 150 - 43 0 K/CU MM. The referen ce range was not u sed to interpret this result as normal/abnor mal. MPV (test code = 11.7 fL 6-11.5 H 66344-5) nRBC (test code = 413) 0 See_Comment [Aut omated message] The system [employer] generated this result transmitted ref erence range: 0 - 0 /1 00 WBC. The refere nce range was not u sed to interpret this result as normal/abnor mal. Lab Interpretation (test Abnormal code = 77145-8) [facility] (Hemogram only)2020-04-03 05:47:00 Test Item Value Reference Range Interpretation Comments WBC (test code = 6690-2) 8.9 See_Comment [A utomated message] The system [employer] generated this result transmitted ref erence range: 4.0 - 10 .0 K/L. The refe rence range was not u sed to interpret this result as normal/abnor mal. RBC (test code = 789-8) 3.59 See_Comment L [Au tomated message] The system [employer] generated this result transmitted ref erence range: 4.20 - 5 .80 M/L. The refe rence range was not u sed to interpret this result as normal/abnor mal. MCHC (test code = 786-4) 32.4 See_Comment L [A utomated message] The system [employer] generated this result transmitted ref erence range: [...] See_Comment [Aut omated message] 777-3) The system [employer] generated this result transmitted ref erence range: 150 - 43 0 K/CU MM. The referen ce range was not u sed to interpret this result as normal/abnor mal. MPV (test code = 11.7 fL 6-11.5 H 90419-1) nRBC (test code = 413) 0 See_Comment [Aut omated message] The system [employer] generated this result transmitted ref erence range: 0 - 0 /1 00 WBC. The refere nce range was not u sed to interpret this result as normal/abnor mal. Lab Interpretation (test Abnormal code = 22130-3) [facility] (Hemogram only)2020-04-03 05:47:00 Test Item Value Reference Range Interpretation Comments WBC (test code = 6690-2) 8.9 See_Comment [A utomated message] The system [employer] generated this result transmitted ref erence range: 4.0 - 10 .0 K/L. The refe rence range was not u sed to interpret this result as normal/abnor mal. RBC (test code = 789-8) 3.59 See_Comment L [Au tomated message] The system [employer] generated this result transmitted ref erence range: 4.20 - 5 .80 M/L. The refe rence range was not u sed to interpret this result as normal/abnor mal. MCHC (test code = 786-4) 32.4 See_Comment L [A utomated message] The system [employer] generated this result transmitted ref erence range: [...] code = 215 See_Comment [Aut omated message] 607-3) The system [employer] generated this result transmitted ref erence range: 150 - 43 0 K/CU MM. The referen ce range was not u sed to interpret this result as normal/abnor mal. MPV (test code = 11.7 fL 6-11.5 H 32156-8) nRBC (test code = 413) 0 See_Comment [Aut omated message] The system [employer] generated this result transmitted ref erence range: 0 - 0 /1 00 WBC. The refere nce range was not u sed to interpret this result as normal/abnor mal. Lab Interpretation (test Abnormal code = 12083-2) [facility] (Hemogram only)2020-04-03 05:47:00 Test Item Value Reference Range Interpretation Comments WBC (test code = 6690-2) 8.9 See_Comment [A utomated message] The system [employer] generated this result transmitted ref erence range: 4.0 - 10 .0 K/L. The refe rence range was not u sed to interpret this result as normal/abnor mal. RBC (test code = 789-8) 3.59 See_Comment L [Au tomated message] The system [employer] generated this result transmitted ref erence range: 4.20 - 5 .80 M/L. The refe rence range was not u sed to interpret this result as normal/abnor mal. MCHC (test code = 786-4) 32.4 See_Comment L [A utomated message] The system [employer] generated this result transmitted ref erence range: [...] See_Comment [Aut omated message] 777-3) The system [employer] generated this result transmitted ref erence range: 150 - 43 0 K/CU MM. The referen ce range was not u sed to interpret this result as normal/abnor mal. MPV (test code = 11.7 fL 6-11.5 H 53768-2) nRBC (test code = 413) 0 See_Comment [Aut omated message] The system [employer] generated this result transmitted ref erence range: 0 - 0 /1 00 WBC. The refere nce range was not u sed to interpret this result as normal/abnor mal. Lab Interpretation (test Abnormal code = 47860-9) [facility] 05:47:00 Test Item Value Reference Range Interpretation Comments WBC (test code = 6690-2) 8.9 See_Comment [A utomated message] The system [employer] generated this result transmitted ref erence range: 4.0 - 10 .0 K/L. The refe rence range was not u sed to interpret this result as normal/abnor mal. RBC (test code = 789-8) 3.59 See_Comment L [Au tomated message] The system [employer] generated this result transmitted ref erence range: 4.20 - 5 .80 M/L. The refe rence range was not u sed to interpret this result as normal/abnor mal. MCHC (test code = 786-4) 32.4 See_Comment L [A utomated message] The system [employer] generated this result transmitted ref erence range: [...] See_Comment [Aut omated message] 777-3) The system [employer] generated this result transmitted ref erence range: 150 - 43 0 K/CU MM. The referen ce range was not u sed to interpret this result as normal/abnor mal. MPV (test code = 11.7 fL 6.0-11.5 H 76326-5) nRBC (test code = 413) 0 See_Comment [Aut omated message] The system [employer] generated this result transmitted ref erence range: 0 - 0 /1 00 WBC. The refere nce range was not u sed to interpret this result as normal/abnor mal. Lab Interpretation (test Abnormal code = 13642-3) [facility] (Hemogram only)2020-04-03 05:47:00 Test Item Value Reference Range Interpretation Comments WBC (test code = 6690-2) 8.9 See_Comment [A utomated message] The system The [employer] generated this result transmitted ref erence range: 4.0 - 10 .0 K/L. The refe rence range was not u sed to interpret this result as normal/abnor mal. RBC (test code = 789-8) 3.59 See_Comment L [Au tomated message] The system The [employer] generated this result transmitted ref erence range: 4.20 - 5 .80 M/L. The refe rence range was not u sed to interpret this result as normal/abnor mal. MCHC (test code = 786-4) 32.4 See_Comment L [A utomated message] The system [employer] generated this result transmitted ref erence range: [...] See_Comment [Aut omated message] 777-3) The system [employer] generated this result transmitted ref erence range: 150 - 43 0 K/CU MM. The referen ce range was not u sed to interpret this result as normal/abnor mal. MPV (test code = 11.7 fL 6.0-11.5 H 28896-5) nRBC (test code = 413) 0 See_Comment [Aut omated message] The system The [employer] generated this result transmitted ref erence range: 0 - 0 /1 00 WBC. The refere nce range was not u sed to interpret this result as normal/abnor mal. Lab Interpretation (test Abnormal code = 99897-0) [facility] (Hemogram only)2020-04-03 05:47:00 Test Item Value Reference Range Interpretation Comments WBC (test code = 6690-2) 8.9 See_Comment [A utomated message] The system The [employer] Report generated this result transmitted ref erence range: 4.0 - 10 .0 K/L. The refe rence range was not u sed to interpret this result as normal/abnor mal. RBC (test code = 789-8) 3.59 See_Comment L [Au tomated message] The system The [employer] Report generated this result transmitted ref erence range: 4.20 - 5 .80 M/L. The refe rence range was not u sed to interpret this result as normal/abnor mal. MCHC (test code = 786-4) 32.4 See_Comment L [A utomated message] The system [employer] generated this result transmitted ref erence range: [...] See_Comment [Aut omated message] 777-3) The system [employer] generated this result transmitted ref erence range: 150 - 43 0 K/CU MM. The referen ce range was not u sed to interpret this result as normal/abnor mal. MPV (test code = 11.7 fL 6.0-11.5 H 08981-6) nRBC (test code = 413) 0 See_Comment [Aut omated message] The system The [employer] Report generated this result transmitted ref erence range: 0 - 0 /1 00 WBC. The refere nce range was not u sed to interpret this result as normal/abnor mal. Lab Interpretation (test Abnormal code = 82677-2) [facility] (HEMOGRAM ONLY)2020-04-03 05:47:00 Test Item Value [...] (BEAKER) (test code = 413) VANCOMYCIN LEVEL, [id number] 22:37:00 Test Item Value Reference Range Interpretation Comments VANCOMYCIN TROUGH (BEAKER) (test 18.7 ug/mL 10.0-20.0 code = 522) Thermostat Maker ID - JUSTINPOCT-GLUCOSE [id number] 21:28:00 Test Item Value Reference Range Interpretation Comments POC-GLUCOSE METER 234 mg/dL 70-110 H : TESTED A T [facility] [address] (BEAKER) (test code [address], = 1538) [facility] 77 478: Thermostat Maker/Techni cornelia ID = [id number] for Heidy Barrow POCT-GLUCOSE [id number] 16:03:00 Test Item Value Reference Range Interpretation Comments POC-GLUCOSE METER 262 mg/dL 70-110 H : TESTED A T [facility] [address] (BEAKER) (test code [address], = 1538) [facility] 77 478: Thermostat Maker/Techni cornelia ID = [id number] for Tanesha Espinale POCT-GLUCOSE [id number] 11:56:00 Test Item Value Reference Range Interpretation Comments POC-GLUCOSE METER 190 mg/dL 70-110 H : TESTED A T [facility] [address] (BEAKER) (test code [address], = 1538) [facility] 77 478: Thermostat Maker/Techni cornelia ID = [id number] for Brandon alejandra, Jesi BASIC METABOLIC [id number] 06:58:00 Test Item Value Reference Range Interpretation [...] S NOT APPLICABLE FOR DIALYSIS PATIEN TS. Thermostat Maker ID - [id number] ID - [id number] ID - [id number] ID - rduv53Kigzgult ID - jtae52Slgqhukx ID - cwuo78Yaaaqexs ID - fsxk79Inhhhzni ID - reme52Uairivkb ID - ayms44Wwaqsjpw ID - [id number] ID - wogr03Ubyuqrdh ID - lyho49Otoubueq ID - [id number] (HEMOGRAM ONLY)2020-04-02 06:43:00 Test Item Value Reference [...] 0-0 (BEAKER) (test code = 413) POCT-GLUCOSE [id number] 16:21:00 Test Item Value Reference Range Interpretation Comments POC-GLUCOSE METER 262 mg/dL 70-110 H : TESTED A T [facility] [address] (BEAKER) (test code [address], = 1538) [place] [address]: Thermostat Maker/Techni cornelia ID = [id number] for Jesi Espinal POCT-GLUCOSE [id number] 13:00:00 Test Item Value Reference Range Interpretation Comments POC-GLUCOSE METER 256 mg/dL 70-110 H : TESTED A T [facility] [address] (BEAKER) (test code [address], = 1538) [place] 77 478: Thermostat Maker/Techni cornelia ID = [id number] for Palm Olga weiss POCT-GLUCOSE [id number] 11:49:00 Test Item Value Reference Range Interpretation Comments POC-GLUCOSE METER 255 mg/dL 70-110 H : TESTED A T [facility] [address] (BEAKER) (test code [address], = 1538) [place] [address] 478: Thermostat Maker/Techni cornelia ID = [id number] for Karina Curtis POCT-GLUCOSE [id number] 07:53:00 Test Item Value Reference Range Interpretation Comments POC-GLUCOSE METER 296 mg/dL 70-110 H : TESTED A T [facility] [address] (BEAKER) (test code [address], = 1538) [place] [address]: Thermostat Maker/Techni cornelia ID = [id number] for Brandon alejandra, Jesi BASIC METABOLIC [id number] 06:06:00 Test Item Value Reference Range Interpretation [...] S NOT APPLICABLE FOR DIALYSIS PATIEN TS. Thermostat Maker ID - ANSBERTOGOperator ID - ANSBERTOGOperator ID - ANSBERTOGOperator ID - ANSBERTOGOperatorID - ANSBERTOGOperator ID - ANSBERTOGOperator ID - ANSBERTOGOperator ID - ANSBERTOGOperator ID - ANSBERTOGOperator ID - ANSBERTOGOperator ID - ANSBERTOGOperator ID - ANSBERTOGOperator ID - ANSBERTOG POCT-GLUCOSE [id number] 20:54:00 Test Item Value Reference Range Interpretation Comments POC-GLUCOSE METER 252 mg/dL 70-110 H : TESTED A T [facility] [address] (BEAKER) (test code [address], = 1538) [place] [address]: Thermostat Maker/Techni cornelia ID = [id number] for gordon Whitehead POCT-GLUCOSE [id number] 15:59:00 Test Item Value Reference Range Interpretation Comments POC-GLUCOSE METER 335 mg/dL 70-110 H : TESTED A T [facility] [address] (BEAKER) (test code [address], = 1538) [place] [address]: Thermostat Maker/Techni cornelia ID = [id number] for Tiff Roach POCT-GLUCOSE [id number] 15:24:00 Test Item Value Reference Range Interpretation Comments POC-GLUCOSE METER 356 mg/dL 70-110 H : TESTED A T [facility] [address] (BEAKER) (test code [address], = 1538) [place] [address] 478: Thermostat Maker/Techni cornelia ID = [id number] for Tiff Roach POCT-GLUCOSE [id number] 07:46:00 Test Item Value Reference Range Interpretation Comments POC-GLUCOSE METER 281 mg/dL 70-110 H : TESTED A T [facility] [address] (BEAKER) (test code [address], = 1538) [place] [address] 478: Thermostat Maker/Techni cornelia ID = [id number] for Tiff Roach Hemoglobin [id number] 06:09:00 Test Item Value Reference Range Interpretation Comments Hemoglobin A1C (test code 12.3 % 4.3-6.1 H = 4548-4) ISSA (test code = ISSA) Thermostat Maker ID - [id number] Lab Interpretation (test Abnormal code = 58919-5) [facility] [id number] 06:09:00 Test Item Value Reference Range Interpretation Comments Hemoglobin A1C (test code 12.3 % 4.3-6.1 H = 4548-4) ISSA (test code = ISSA) Thermostat Maker ID - [id number] Lab Interpretation (test Abnormal code = 00280-1) [facility] [id number] 06:09:00 Test Item Value Reference Range Interpretation Comments Hemoglobin A1C (test code 12.3 % 4.3-6.1 H = 4548-4) ISSA (test code = ISSA) Thermostat Maker ID - [id number] Lab Interpretation (test Abnormal code = 50799-0) [facility] [id number] 06:09:00 Test Item Value Reference Range Interpretation Comments Hemoglobin A1C (test code 12.3 % 4.3-6.1 H = 4548-4) ISSA (test code = ISSA) Thermostat Maker ID - [id number] Lab Interpretation (test Abnormal code = 93774-6) [facility] [id number] 06:09:00 Test Item Value Reference Range Interpretation Comments Hemoglobin A1C (test code 12.3 % 4.3-6.1 H = 4548-4) ISSA (test code = ISSA) Thermostat Maker ID - [id number] Lab Interpretation (test Abnormal code = 17407-0) [facility] [id number] 06:09:00 Test Item Value Reference Range Interpretation Comments Hemoglobin A1C (test code 12.3 % 4.3-6.1 H = 4548-4) ISSA (test code = ISSA) Thermostat Maker ID - [id number] Lab Interpretation (test Abnormal code = 27125-0) [facility] [id number] 06:09:00 Test Item Value Reference Range Interpretation Comments Hemoglobin A1C (test code 12.3 % 4.3-6.1 H = 4548-4) ISSA (test code = ISSA) Thermostat Maker ID - [id number] Lab Interpretation (test Abnormal code = 19938-3) [id number] 06:09:00 Test Item Value Reference Range Interpretation Comments HEMOGLOBIN A1C (BEAKER) (test code = 12.3 % 4.3-6.1 H 368) Thermostat Maker ID - GILASIC METABOLIC [id number] 06:04:00 Test Item Value Reference Range Interpretation [...] S NOT APPLICABLE FOR DIALYSIS PATIEN TS. Thermostat Maker ID - ANSBERTOGOperator ID - ANSBERTOGOperator ID - ANSBERTOGOperator ID - ANSBERTOGOperatorID - ANSBERTOGOperator ID - ANSBERTOGOperator ID - ANSBERTOGOperator ID - ANSBERTOGOperator ID - ANSBERTOGOperator ID - ANSBERTOGOperator ID - ANSBERTOGOperator ID - ANSBERTOGOperator ID - ANSBERTOG CBC W/PLT COUNT & AUTO [id number] 05:38:00 Test Item Value Reference Range Interpretation [...] = 2801) CBC W/PLT COUNT & AUTO [id number] 22:16:00 Test Item Value Reference Range Interpretation [...] PERCENT (BEAKER) (test code = 2801) POCT-GLUCOSE [id number] 22:12:00 Test Item Value Reference Range Interpretation Comments POC-GLUCOSE METER 396 mg/dL 70-110 H : TESTED A T [facility] (BEAKER) ([facility] [address] = [address]) [facility] 77 [address]: Thermostat Maker/Techni cornelia ID = [id number] for Aanu siem, felicity RAD, FOOT, MIN 3 VIEWS, [id number] 21:39:00Reason for exam:->L foot ulcer.[facility] CENTERName: FRANDY FORD : 1975 [...] MDReport Verified Date/Time: 03/30/2020 21:39:00 BASI METABOLIC [id number] 21:34:00 Test Item Value Reference Range Interpretation [...] S NOT APPLICABLE FOR DIALYSIS PATIEN TS. Thermostat Maker ID - JBERNOperator ID - JBERNOperator ID - JBERNOperator ID - JBERNOperator ID - JBERNOperator ID - JBERNOperator ID - JBERNOperator ID - JBERNOperator ID - JBERNOperator ID - JBERNOperator ID- JBERNOperator ID - JBERNOperator ID - JBERNSARS-COV2/RT-PCR ([facility])2020-03-30 21:04:00 Test Item Value Reference Range Interpretation Comments SARS-COV2/RT-PCR Negative Not Detected, (test code = 4057289) Negative, See external report for linked test SARS-COV-2 PERFORMING Perfor med @ [facility] (test code = 7074446) BLOOD [id number] 04:00:00 Test Item Value Reference Range Interpretation Comments CULTURE (BEAKER) (test No growth in 5 days code = 1095) BLOOD [id number] 04:00:00 Test Item Value Reference Range Interpretation Comments CULTURE (BEAKER) (test No growth in 5 days code = 1095) BASIC METABOLIC [id number] 01:36:00 Test Item Value Reference Range Interpretation [...] S NOT APPLICABLE FOR DIALYSIS PATIEN TS. Thermostat Maker ID - [id number] ID - [id number] ID - rbhw39Ejddriuw ID - nphx28Tyaokcyc ID - upxj17Dcqwomdg ID - [id number] ID - yhqh31Cxegzuof ID - mjrq52Dvufoyhc ID - fryw79Jlxjqjty ID - ggpj13Mxmagbjq ID - llmm30Ykttlxmr ID - rpos59Gndajxwk ID - bwpl02P-Ctcyzkpd [id number] 01:34:00 Test Item Value Reference Range Interpretation Comments CRP (test code = 676) 0.66 mg/dL 0-0.5 H ISSA (test code = ISSA) Thermostat Maker ID - [id number] Lab Interpretation (test Abnormal code = 93454-3) [facility] [id number] 01:34:00 Test Item Value Reference Range Interpretation Comments CRP (test code = 676) 0.66 mg/dL 0-0.5 H ISSA (test code = ISSA) Thermostat Maker ID - [id number] Lab Interpretation (test Abnormal code = 05377-9) [facility] [id number] 01:34:00 Test Item Value Reference Range Interpretation Comments CRP (test code = 676) 0.66 mg/dL 0-0.5 H ISSA (test code = ISSA) Thermostat Maker ID - [id number] Lab Interpretation (test Abnormal code = 90345-5) [facility] [id number] 01:34:00 Test Item Value Reference Range Interpretation Comments CRP (test code = 676) 0.66 mg/dL 0-0.5 H ISSA (test code = ISSA) Thermostat Maker ID - [id number] Lab Interpretation (test Abnormal code = 28857-2) [facility] [id number] 01:34:00 Test Item Value Reference Range Interpretation Comments CRP (test code = 676) 0.66 mg/dL 0.00-0.50 H ISSA (test code = ISSA) Thermostat Maker ID - [id number] Lab Interpretation (test Abnormal code = 78096-2) [facility] [id number] 01:34:00 Test Item Value Reference Range Interpretation Comments CRP (test code = 676) 0.66 mg/dL 0.00-0.50 H ISSA (test code = ISSA) Thermostat Maker ID - [id number] Lab Interpretation (test Abnormal code = 74380-2) [facility] [id number] 01:34:00 Test Item Value Reference Range Interpretation Comments CRP (test code = 676) 0.66 mg/dL 0.00-0.50 H ISSA (test code = ISSA) Thermostat Maker ID - [id number] Lab Interpretation (test Abnormal code = 42161-4) [id number] 01:34:00 Test Item Value Reference Range Interpretation Comments C-REACTIVE PROTEIN (BEAKER) (test 0.66 mg/dL 0.00-0.50 H code = 676) Thermostat Maker ID - [id number] ACID, [id number] 01:33:00 Test Item Value Reference Range Interpretation Comments LACTATE BLOOD VENOUS (2) (BEAKER) 1.75 mmol/L 0.50-<2.00 (test code = 2872) Thermostat Maker ID - [id number] ID - [id number] ID - [id number] ID - [id number] CBC W/PLT COUNT & AUTO [id number] 01:21:00 Test Item Value Reference Range Interpretation [...] = 2801) RAD, FOOT, MIN 3 VIEWS, [id number] 00:51:00Reason for exam:->ABSCESS [facility] CENTER[facility] FRANDY FORD : 1975 [...] 03/20/2020 00:51:45 Panel Description: Hemoglobin A1c/Hemoglobin.total in [id number] 11:40:00 Test Item Value Reference Range Interpretation Comments Hemoglobin A1c (test code 13.1 % 4.8-5.6 H = 4548-4) . Prediabetes: 5. 7 - 6.4 Diabete s: >6.4 Glycemi c control for niall lts with diabetes: <7.0

P erforme d by:
[facility] ([place])

[facility] Description: Hemoglobin A1c/Hemoglobin.total in Blood 2020-03-07 11:40:00 Test Item Value Reference Range Interpretation Comments Hemoglobin A1c (test code 13.1 % 4.8-5.6 H = 4548-4) . Prediabetes: 5. 7 - 6.4 Diabete s: >6.4 Glycemi c control for niall lts with diabetes: <7.0

P erforme d by:
[facility] ([place])

[facility] Description: Hemoglobin A1c/Hemoglobin.total in Blood 2020-03-07 11:40:00 Test Item Value Reference Range Interpretation Comments Hemoglobin A1c (test code 13.1 % 4.8-5.6 H = 4548-4) . Prediabetes: 5. 7 - 6.4 Diabete s: >6.4 Glycemi c control for niall lts with diabetes: <7.0

P erforme d by:
[facility] ([place])

[facility] Description: Hemoglobin A1c/Hemoglobin.total in Blood 2020-03-07 11:40:00 Test Item Value Reference Range Interpretation Comments Hemoglobin A1c (test code 13.1 % 4.8-5.6 H = 4548-4) . Prediabetes: 5. 7 - 6.4 Diabete s: >6.4 Glycemi c control for niall lts with diabetes: <7.0

P erforme d by:
[facility] ([place])

[facility] Description: Hemoglobin A1c/Hemoglobin.total in Blood 2020-03-07 11:40:00 Test Item Value Reference Range Interpretation Comments Hemoglobin A1c (test code 13.1 % 4.8-5.6 H = 4548-4) . Prediabetes: 5. 7 - 6.4 Diabete s: >6.4 Glycemi c control for niall lts with diabetes: <7.0

P erforme d by:
[facility] ([place])

[facility] Description: Hemoglobin A1c/Hemoglobin.total in Blood 2020-03-07 11:40:00 Test Item Value Reference Range Interpretation Comments Hemoglobin A1c (test code 13.1 % 4.8-5.6 H = 4548-4) . Prediabetes: 5. 7 - 6.4 Diabete s: >6.4 Glycemi c control for niall lts with diabetes: <7.0

P erforme d by:
[facility] ([place])

[facility] Description: Hemoglobin A1c/Hemoglobin.total in Blood 2020-03-07 11:40:00 Test Item Value Reference Range Interpretation Comments Hemoglobin A1c (test code 13.1 % 4.8-5.6 H = 4548-4) . Prediabetes: 5. 7 - 6.4 Diabete s: >6.4 Glycemi c control for niall lts with diabetes: <7.0

P erforme d by:
[facility] ([place])

[facility] Description: Hemoglobin A1c/Hemoglobin.total in Blood 2020-03-07 11:40:00 Test Item Value Reference Range Interpretation Comments Hemoglobin A1c (test code 13.1 % 4.8-5.6 H = 4548-4) . Prediabetes: 5. 7 - 6.4 Diabete s: >6.4 Glycemi c control for niall lts with diabetes: <7.0

P erforme d by:
[facility] ([place])

[facility] Description: Hemoglobin A1c/Hemoglobin.total in Blood 2020-03-07 11:40:00 Test Item Value Reference Range Interpretation Comments Hemoglobin A1c (test code 13.1 % 4.8-5.6 H = 4548-4) . Prediabetes: 5. 7 - 6.4 Diabete s: >6.4 Glycemi c control for niall lts with diabetes: <7.0

P erforme d by:
[facility] ([place])

[facility] Description: Hemoglobin A1c/Hemoglobin.total in Blood 2020-03-07 11:40:00 Test Item Value Reference Range Interpretation Comments Hemoglobin A1c (test code 13.1 % 4.8-5.6 H = 4548-4) . Prediabetes: 5. 7 - 6.4 Diabete s: >6.4 Glycemi c control for niall lts with diabetes: <7.0

P erforme d by:
[facility] ([place])

[facility] Description: Hemoglobin A1c/Hemoglobin.total in Blood 2020-03-07 11:40:00 Test Item Value Reference Range Interpretation Comments Hemoglobin A1c (test code 13.1 % 4.8-5.6 H = 4548-4) . Prediabetes: 5. 7 - 6.4 Diabete s: >6.4 Glycemi c control for niall lts with diabetes: <7.0

P erforme d by:
[facility] ([place])

[facility] Description: Hemoglobin A1c/Hemoglobin.total in Blood 2020-03-07 11:40:00 Test Item Value Reference Range Interpretation Comments Hemoglobin A1c (test code 13.1 % 4.8-5.6 H = 4548-4) . Prediabetes: 5. 7 - 6.4 Diabete s: >6.4 Glycemi c control for niall lts with diabetes: <7.0

P erforme d by:
[facility] ([place])

[facility] Description: Hemoglobin A1c/Hemoglobin.total in Blood 2020-03-07 11:40:00 Test Item Value Reference Range Interpretation Comments Hemoglobin A1c (test code 13.1 % 4.8-5.6 H = 4548-4) . Prediabetes: 5. 7 - 6.4 Diabete s: >6.4 Glycemi c control for niall lts with diabetes: <7.0

P erforme d by:
[facility] ([place])

[facility] Description: Hemoglobin A1c/Hemoglobin.total in Blood 2020-03-07 11:40:00 Test Item Value Reference Range Interpretation Comments Hemoglobin A1c (test code 13.1 % 4.8-5.6 H = 4548-4) . Prediabetes: 5. 7 - 6.4 Diabete s: >6.4 Glycemi c control for niall lts with diabetes: <7.0

P erforme d by:
[facility] ([place])

[facility] Description: Hemoglobin A1c/Hemoglobin.total in Blood 2020-03-07 11:40:00 Test Item Value Reference Range Interpretation Comments Hemoglobin A1c (test code 13.1 % 4.8-5.6 H = 4548-4) . Prediabetes: 5. 7 - 6.4 Diabete s: >6.4 Glycemi c control for niall lts with diabetes: <7.0

P erforme d by:
[facility] ([place])

[facility] Description: Hemoglobin A1c/Hemoglobin.total in Blood 2020-03-07 11:40:00 Test Item Value Reference Range Interpretation Comments Hemoglobin A1c (test code 13.1 % 4.8-5.6 H = 4548-4) . Prediabetes: 5. 7 - 6.4 Diabete s: >6.4 Glycemi c control for niall lts with diabetes: <7.0

P erforme d by:
[facility] ([place])

[facility] Description: Hemoglobin A1c/Hemoglobin.total in Blood 2020-03-07 11:40:00 Test Item Value Reference Range Interpretation Comments Hemoglobin A1c (test code 13.1 % 4.8-5.6 H = 4548-4) . Prediabetes: 5. 7 - 6.4 Diabete s: >6.4 Glycemi c control for niall lts with diabetes: <7.0

P erforme d by:
[facility] ([place])

[facility] Description: Hemoglobin A1c/Hemoglobin.total in Blood 2020-03-07 11:40:00 Test Item Value Reference Range Interpretation Comments Hemoglobin A1c (test code 13.1 % 4.8-5.6 H = 4548-4) . Prediabetes: 5. 7 - 6.4 Diabete s: >6.4 Glycemi c control for niall lts with diabetes: <7.0

P erforme d by:
[facility] ([place])

[facility] Description: Hemoglobin A1c/Hemoglobin.total in Blood 2020-03-07 11:40:00 Test Item Value Reference Range Interpretation Comments Hemoglobin A1c (test code 13.1 % 4.8-5.6 H = 4548-4) . Prediabetes: 5. 7 - 6.4 Diabete s: >6.4 Glycemi c control for niall lts with diabetes: <7.0

P erforme d by:
[facility] ([place])

[facility] Description: Hemoglobin A1c/Hemoglobin.total in Blood 2020-03-07 11:40:00 Test Item Value Reference Range Interpretation Comments Hemoglobin A1c (test code 13.1 % 4.8-5.6 H = 4548-4) . Prediabetes: 5. 7 - 6.4 Diabete s: >6.4 Glycemi c control for niall lts with diabetes: <7.0

P erforme d by:
[facility] ([place])

[facility] Description: Hemoglobin A1c/Hemoglobin.total in Blood 2020-03-07 11:40:00 Test Item Value Reference Range Interpretation Comments Hemoglobin A1c (test code 13.1 % 4.8-5.6 H = 4548-4) . Prediabetes: 5. 7 - 6.4 Diabete s: >6.4 Glycemi c control for niall lts with diabetes: <7.0

P erforme d by:
[facility] ([place])

[facility] Description: Hemoglobin A1c/Hemoglobin.total in Blood 2020-03-07 11:40:00 Test Item Value Reference Range Interpretation Comments Hemoglobin A1c (test code 13.1 % 4.8-5.6 H = 4548-4) . Prediabetes: 5. 7 - 6.4 Diabete s: >6.4 Glycemi c control for niall lts with diabetes: <7.0

P erforme d by:
[facility] ([place])

[facility] Description: Hemoglobin A1c/Hemoglobin.total in Blood 2020-03-07 11:40:00 Test Item Value Reference Range Interpretation Comments Hemoglobin A1c (test code 13.1 % 4.8-5.6 H = 4548-4) . Prediabetes: 5. 7 - 6.4 Diabete s: >6.4 Glycemi c control for niall lts with diabetes: <7.0

P erforme d by:
[facility] ([place])

[facility] Description: Hemoglobin A1c/Hemoglobin.total in Blood 2020-03-07 11:40:00 Test Item Value Reference Range Interpretation Comments Hemoglobin A1c (test code 13.1 % 4.8-5.6 H = 4548-4) . Prediabetes: 5. 7 - 6.4 Diabete s: >6.4 Glycemi c control for niall lts with diabetes: <7.0

P erforme d by:
[facility] ([place])

[facility] Description: Hemoglobin A1c/Hemoglobin.total in Blood 2020-03-07 11:40:00 Test Item Value Reference Range Interpretation Comments Hemoglobin A1c (test code 13.1 % 4.8-5.6 H = 4548-4) . Prediabetes: 5. 7 - 6.4 Diabete s: >6.4 Glycemi c control for niall lts with diabetes: <7.0

P erforme d by:
[facility] ([place])

[facility] Description: Hemoglobin A1c/Hemoglobin.total in Blood 2020-03-07 11:40:00 Test Item Value Reference Range Interpretation Comments Hemoglobin A1c (test code 13.1 % 4.8-5.6 H = 4548-4) . Prediabetes: 5. 7 - 6.4 Diabete s: >6.4 Glycemi c control for niall lts with diabetes: <7.0

P erforme d by:
[facility] ([place])

[facility] Description: Lipid [id number] 08:03:00 Test Item Value Reference Range Interpretation Comments Cholesterol, Total (test code = 209 mg/dL 100-199 H 3-3) Triglycerides (test code = 2571-8) 172 mg/dL 0-149 H HDL Cholesterol (test code = 29 mg/dL >39 L 5-9) VLDL Cholesterol Renuka (test code = 32 mg/dL 5-40 79104-5) LDL Chol Calc (NIH) (test code = 148 mg/dL 0-99 H 74718-1) Comment: (test code = 64888-9) [facility] Description: Lipid [id number] 08:03:00 Test Item Value Reference Range Interpretation Comments Cholesterol, Total (test code = 209 mg/dL 100-199 H 2093-3) Triglycerides (test code = 2571-8) 172 mg/dL 0-149 H HDL Cholesterol (test code = 29 mg/dL >39 L 2085-9) VLDL Cholesterol Renuka (test code = 32 mg/dL 5-40 55913-2) LDL Chol Calc (NIH) (test code = 148 mg/dL 0-99 H 64578-4) Comment: (test code = 34325-3) [facility] Description: Lipid [id number] 08:03:00 Test Item Value Reference Range Interpretation Comments Cholesterol, Total (test code = 209 mg/dL 100-199 H 2093-3) Triglycerides (test code = 2571-8) 172 mg/dL 0-149 H HDL Cholesterol (test code = 29 mg/dL >39 L 2085-9) VLDL Cholesterol Renuka (test code = 32 mg/dL 5-40 67520-3) LDL Chol Calc (NIH) (test code = 148 mg/dL 0-99 H 09853-1) Comment: (test code = 64907-3) [facility] Description: Lipid [id number] 08:03:00 Test Item Value Reference Range Interpretation Comments Cholesterol, Total (test code = 209 mg/dL 100-199 H 2093-3) Triglycerides (test code = 2571-8) 172 mg/dL 0-149 H HDL Cholesterol (test code = 29 mg/dL >39 L 2085-9) VLDL Cholesterol Renuka (test code = 32 mg/dL 5-40 92054-2) LDL Chol Calc (NIH) (test code = 148 mg/dL 0-99 H 06318-2) Comment: (test code = 97707-1) [facility] Description: Lipid [id number] 08:03:00 Test Item Value Reference Range Interpretation Comments Cholesterol, Total (test code = 209 mg/dL 100-199 H 2093-3) Triglycerides (test code = 2571-8) 172 mg/dL 0-149 H HDL Cholesterol (test code = 29 mg/dL >39 L 2085-9) VLDL Cholesterol Renuka (test code = 32 mg/dL 5-40 09569-9) LDL Chol Calc (NIH) (test code = 148 mg/dL 0-99 H 89606-2) Comment: (test code = 37963-8) [facility] Description: Lipid [id number] 08:03:00 Test Item Value Reference Range Interpretation Comments Cholesterol, Total (test code = 209 mg/dL 100-199 H 2093-3) Triglycerides (test code = 2571-8) 172 mg/dL 0-149 H HDL Cholesterol (test code = 29 mg/dL >39 L 2085-9) VLDL Cholesterol Renuka (test code = 32 mg/dL 5-40 03079-8) LDL Chol Calc (NIH) (test code = 148 mg/dL 0-99 H 85443-0) Comment: (test code = 44617-5) [facility] Description: Lipid [id number] 08:03:00 Test Item Value Reference Range Interpretation Comments Cholesterol, Total (test code = 209 mg/dL 100-199 H 2093-3) Triglycerides (test code = 2571-8) 172 mg/dL 0-149 H HDL Cholesterol (test code = 29 mg/dL >39 L 5-9) VLDL Cholesterol Renuka (test code = 32 mg/dL 5-40 79624-4) LDL Chol Calc (NIH) (test code = 148 mg/dL 0-99 H 56573-7) Comment: (test code = 47972-8) [facility] Description: Lipid [id number] 08:03:00 Test Item Value Reference Range Interpretation Comments Cholesterol, Total (test code = 209 mg/dL 100-199 H 2093-3) Triglycerides (test code = 2571-8) 172 mg/dL 0-149 H HDL Cholesterol (test code = 29 mg/dL >39 L 2085-9) VLDL Cholesterol Renuka (test code = 32 mg/dL 5-40 34704-8) LDL Chol Calc (NIH) (test code = 148 mg/dL 0-99 H 34409-6) Comment: (test code = 13208-2) [facility] Description: Lipid [id number] 08:03:00 Test Item Value Reference Range Interpretation Comments Cholesterol, Total (test code = 209 mg/dL 100-199 H 2093-3) Triglycerides (test code = 2571-8) 172 mg/dL 0-149 H HDL Cholesterol (test code = 29 mg/dL >39 L 2085-9) VLDL Cholesterol Renuka (test code = 32 mg/dL 5-40 93955-9) LDL Chol Calc (NIH) (test code = 148 mg/dL 0-99 H 28294-8) Comment: (test code = 66598-4) [facility] Description: Lipid [id number] 08:03:00 Test Item Value Reference Range Interpretation Comments Cholesterol, Total (test code = 209 mg/dL 100-199 H 2093-3) Triglycerides (test code = 2571-8) 172 mg/dL 0-149 H HDL Cholesterol (test code = 29 mg/dL >39 L 2085-9) VLDL Cholesterol Renuka (test code = 32 mg/dL 5-40 27945-9) LDL Chol Calc (NIH) (test code = 148 mg/dL 0-99 H 88153-8) Comment: (test code = 55641-1) [facility] Description: Lipid [id number] 08:03:00 Test Item Value Reference Range Interpretation Comments Cholesterol, Total (test code = 209 mg/dL 100-199 H 3-3) Triglycerides (test code = 2571-8) 172 mg/dL 0-149 H HDL Cholesterol (test code = 29 mg/dL >39 L 5-9) VLDL Cholesterol Renuka (test code = 32 mg/dL 5-40 17997-7) LDL Chol Calc (NIH) (test code = 148 mg/dL 0-99 H 02133-3) Comment: (test code = 83535-1) [facility] Description: Lipid [id number] 08:03:00 Test Item Value Reference Range Interpretation Comments Cholesterol, Total (test code = 209 mg/dL 100-199 H 3-3) Triglycerides (test code = 2571-8) 172 mg/dL 0-149 H HDL Cholesterol (test code = 29 mg/dL >39 L 2085-9) VLDL Cholesterol Renuka (test code = 32 mg/dL 5-40 45601-8) LDL Chol Calc (NIH) (test code = 148 mg/dL 0-99 H 53440-6) Comment: (test code = 27861-2) [facility] Description: Lipid [id number] 08:03:00 Test Item Value Reference Range Interpretation Comments Cholesterol, Total (test code = 209 mg/dL 100-199 H 2093-3) Triglycerides (test code = 2571-8) 172 mg/dL 0-149 H HDL Cholesterol (test code = 29 mg/dL >39 L 2085-9) VLDL Cholesterol Renuka (test code = 32 mg/dL 5-40 66407-6) LDL Chol Calc (NIH) (test code = 148 mg/dL 0-99 H 24399-5) Comment: (test code = 66559-5) [facility] Description: Lipid [id number] 08:03:00 Test Item Value Reference Range Interpretation Comments Cholesterol, Total (test code = 209 mg/dL 100-199 H 2093-3) Triglycerides (test code = 2571-8) 172 mg/dL 0-149 H HDL Cholesterol (test code = 29 mg/dL >39 L 2085-9) VLDL Cholesterol Renuka (test code = 32 mg/dL 5-40 43043-4) LDL Chol Calc (NIH) (test code = 148 mg/dL 0-99 H 10185-1) Comment: (test code = 46609-6) [facility] Description: Lipid [id number] 08:03:00 Test Item Value Reference Range Interpretation Comments Cholesterol, Total (test code = 209 mg/dL 100-199 H 2093-3) Triglycerides (test code = 2571-8) 172 mg/dL 0-149 H HDL Cholesterol (test code = 29 mg/dL >39 L 2085-9) VLDL Cholesterol Renuka (test code = 32 mg/dL 5-40 95575-4) LDL Chol Calc (NIH) (test code = 148 mg/dL 0-99 H 69834-9) Comment: (test code = 93213-7) [facility] Description: Lipid [id number] 08:03:00 Test Item Value Reference Range Interpretation Comments Cholesterol, Total (test code = 209 mg/dL 100-199 H 2093-3) Triglycerides (test code = 2571-8) 172 mg/dL 0-149 H HDL Cholesterol (test code = 29 mg/dL >39 L 2085-9) VLDL Cholesterol Renuka (test code = 32 mg/dL 5-40 22741-5) LDL Chol Calc (NIH) (test code = 148 mg/dL 0-99 H 94979-9) Comment: (test code = 52283-6) [facility] Description: Lipid [id number] 08:03:00 Test Item Value Reference Range Interpretation Comments Cholesterol, Total (test code = 209 mg/dL 100-199 H 2093-3) Triglycerides (test code = 2571-8) 172 mg/dL 0-149 H HDL Cholesterol (test code = 29 mg/dL >39 L 5-9) VLDL Cholesterol Renuka (test code = 32 mg/dL 5-40 26914-2) LDL Chol Calc (NIH) (test code = 148 mg/dL 0-99 H 39030-7) Comment: (test code = 86304-2) [facility] Description: Lipid [id number] 08:03:00 Test Item Value Reference Range Interpretation Comments Cholesterol, Total (test code = 209 mg/dL 100-199 H 2093-3) Triglycerides (test code = 2571-8) 172 mg/dL 0-149 H HDL Cholesterol (test code = 29 mg/dL >39 L 5-9) VLDL Cholesterol Renuka (test code = 32 mg/dL 5-40 49587-1) LDL Chol Calc (NIH) (test code = 148 mg/dL 0-99 H 28878-6) Comment: (test code = 73000-1) [facility] Description: Lipid [id number] 08:03:00 Test Item Value Reference Range Interpretation Comments Cholesterol, Total (test code = 209 mg/dL 100-199 H 2093-3) Triglycerides (test code = 2571-8) 172 mg/dL 0-149 H HDL Cholesterol (test code = 29 mg/dL >39 L 5-9) VLDL Cholesterol Renuka (test code = 32 mg/dL 5-40 51432-2) LDL Chol Calc (NIH) (test code = 148 mg/dL 0-99 H 69099-7) Comment: (test code = 34420-4) [facility] Description: Lipid [id number] 08:03:00 Test Item Value Reference Range Interpretation Comments Cholesterol, Total (test code = 209 mg/dL 100-199 H 2093-3) Triglycerides (test code = 2571-8) 172 mg/dL 0-149 H HDL Cholesterol (test code = 29 mg/dL >39 L 5-9) VLDL Cholesterol Renuka (test code = 32 mg/dL 5-40 46930-8) LDL Chol Calc (NIH) (test code = 148 mg/dL 0-99 H 78831-6) Comment: (test code = 75755-8) [facility] Description: Lipid [id number] 08:03:00 Test Item Value Reference Range Interpretation Comments Cholesterol, Total (test code = 209 mg/dL 100-199 H 3-3) Triglycerides (test code = 2571-8) 172 mg/dL 0-149 H HDL Cholesterol (test code = 29 mg/dL >39 L 2084-9) VLDL Cholesterol Renuka (test code = 32 mg/dL 5-40 23892-8) LDL Chol Calc (NIH) (test code = 148 mg/dL 0-99 H 07892-4) Comment: (test code = 31049-0) [facility] Description: Lipid [id number] 08:03:00 Test Item Value Reference Range Interpretation Comments Cholesterol, Total (test code = 209 mg/dL 100-199 H 3-3) Triglycerides (test code = 2571-8) 172 mg/dL 0-149 H HDL Cholesterol (test code = 29 mg/dL >39 L 2084-9) VLDL Cholesterol Renuka (test code = 32 mg/dL 5-40 49017-7) LDL Chol Calc (NIH) (test code = 148 mg/dL 0-99 H 61812-8) Comment: (test code = 86415-8) [facility] Description: Lipid [id number] 08:03:00 Test Item Value Reference Range Interpretation Comments Cholesterol, Total (test code = 209 mg/dL 100-199 H 3-3) Triglycerides (test code = 2571-8) 172 mg/dL 0-149 H HDL Cholesterol (test code = 29 mg/dL >39 L 5-9) VLDL Cholesterol Renuka (test code = 32 mg/dL 5-40 43950-8) LDL Chol Calc (NIH) (test code = 148 mg/dL 0-99 H 06346-3) Comment: (test code = 55187-2) [facility] Description: Lipid [id number] 08:03:00 Test Item Value Reference Range Interpretation Comments Cholesterol, Total (test code = 209 mg/dL 100-199 H 3-3) Triglycerides (test code = 2571-8) 172 mg/dL 0-149 H HDL Cholesterol (test code = 29 mg/dL >39 L 2085-9) VLDL Cholesterol Renuka (test code = 32 mg/dL 5-40 81103-7) LDL Chol Calc (NIH) (test code = 148 mg/dL 0-99 H 50933-4) Comment: (test code = 75304-3) [facility] Description: Lipid [id number] 08:03:00 Test Item Value Reference Range Interpretation Comments Cholesterol, Total (test code = 209 mg/dL 100-199 H 3-3) Triglycerides (test code = 2571-8) 172 mg/dL 0-149 H HDL Cholesterol (test code = 29 mg/dL >39 L 2085-9) VLDL Cholesterol Renuka (test code = 32 mg/dL 5-40 78907-0) LDL Chol Calc (NIH) (test code = 148 mg/dL 0-99 H 36008-6) Comment: (test code = 03184-7) [facility] Description: Lipid [id number] 08:03:00 Test Item Value Reference Range Interpretation Comments Cholesterol, Total (test code = 209 mg/dL 100-199 H 3-3) Triglycerides (test code = 2571-8) 172 mg/dL 0-149 H HDL Cholesterol (test code = 29 mg/dL >39 L 2085-9) VLDL Cholesterol Renuka (test code = 32 mg/dL 5-40 12071-1) LDL Chol Calc (NIH) (test code = 148 mg/dL 0-99 H 32887-1) Comment: (test code = 62131-1) [facility] Description: Comp. Metabolic Panel (14)2020-03-07 06:49:00 Test Item Value Reference Range Interpretation Comments Glucose (test code = 2345-7) 441 mg/dL 65-99 H BUN (test code = 3094-0) 52 mg/dL 6-24 H Creatinine (test code = 2.05 mg/dL 0.76-1.27 H 2160-0) eGFR If NonAfricn Am (test 38 mL/min/1.73 >59 L code = 62822-9) eGFR If Africn Am (test code = 44 mL/min/1.73 >59 L 09235-7) BUN/Creatinine Ratio (test 25 9-20 H code = 3097-3) Sodium (test code = 2951-2) 138 mmol/L 134-144 Potassium (test code = 2823-3) 5.4 mmol/L 3.5-5.2 H Chloride (test code = 2075-0) 96 mmol/L 96-106 Carbon Dioxide, Total (test 29 mmol/L 20-29 code = 2028-9) Calcium (test code = 43924-5) 9.2 mg/dL 8.7-10.2 Protein, Total (test code = 6.2 g/dL 6.0-8.5 2885-2) Albumin (test code = 1751-7) 3.4 g/dL 4.0-5.0 L Globulin, Total (test code = 2.8 g/dL 1.5-4.5 76560-2) A/G Ratio (test code = 1759-0) 1.2 1.2-2.2 Bilirubin, Total (test code = 0.5 mg/dL 0.0-1.2 1975-2) Alkaline Phosphatase (test 112 IU/L 39-117 code = 6768-6) AST (SGOT) (test code = 21 IU/L 0-40 1920-8) ALT (SGPT) (test code = 31 IU/L 0-44 1742-6) [facility]: Comp. Met[facility] Panel (14)2020-03-07 06:49:00 Test Item Value Reference Range Interpretation Comments Glucose (test code = 2345-7) 441 mg/dL 65-99 H BUN (test code = 3094-0) 52 mg/dL 6-24 H Creatinine (test code = 2.05 mg/dL 0.76-1.27 H 2160-0) eGFR If NonAfricn Am (test 38 mL/min/1.73 >59 L code = 03807-6) eGFR If Africn Am (test code = 44 mL/min/1.73 >59 L 91275-4) BUN/Creatinine Ratio (test 25 9-20 H code = 3097-3) Sodium (test code = 2951-2) 138 mmol/L 134-144 Potassium (test code = 2823-3) 5.4 mmol/L 3.5-5.2 H Chloride (test code = 2075-0) 96 mmol/L 96-106 Carbon Dioxide, Total (test 29 mmol/L 20-29 code = 2028-9) Calcium (test code = 23336-6) 9.2 mg/dL 8.7-10.2 Protein, Total (test code = 6.2 g/dL 6.0-8.5 2885-2) Albumin (test code = 1751-7) 3.4 g/dL 4.0-5.0 L Globulin, Total (test code = 2.8 g/dL 1.5-4.5 20836-5) A/G Ratio (test code = 1759-0) 1.2 1.2-2.2 Bilirubin, Total (test code = 0.5 mg/dL 0.0-1.2 1975-2) Alkaline Phosphatase (test 112 IU/L 39-117 code = 6768-6) AST (SGOT) (test code = 21 IU/L 0-40 1920-8) ALT (SGPT) (test code = 31 IU/L 0-44 1742-6) [facility] Description: Comp. Metabolic Panel (142020-03-07 06:49:00 Test Item Value Reference Range Interpretation Comments Glucose (test code = 2345-7) 441 mg/dL 65-99 H BUN (test code = 3094-0) 52 mg/dL 6-24 H Creatinine (test code = 2.05 mg/dL 0.76-1.27 H 2160-0) eGFR If NonAfricn Am (test 38 mL/min/1.73 >59 L code = 71229-1) eGFR If Africn Am (test code = 44 mL/min/1.73 >59 L 14684-2) BUN/Creatinine Ratio (test 25 9-20 H code = 3097-3) Sodium (test code = 2951-2) 138 mmol/L 134-144 Potassium (test code = 2823-3) 5.4 mmol/L 3.5-5.2 H Chloride (test code = 2075-0) 96 mmol/L 96-106 Carbon Dioxide, Total (test 29 mmol/L 20-29 code = 2027-9) Calcium (test code = 91333-1) 9.2 mg/dL 8.7-10.2 Protein, Total (test code = 6.2 g/dL 6.0-8.5 2885-2) Albumin (test code = 1751-7) 3.4 g/dL 4.0-5.0 L Globulin, Total (test code = 2.8 g/dL 1.5-4.5 39504-1) A/G Ratio (test code = 1759-0) 1.2 1.2-2.2 Bilirubin, Total (test code = 0.5 mg/dL 0.0-1.2 1975-2) Alkaline Phosphatase (test 112 IU/L 39-117 code = 6768-6) AST (SGOT) (test code = 21 IU/L 0-40 1920-8) ALT (SGPT) (test code = 31 IU/L 0-44 1742-6) [facility] Description: Comp. Metabolic Panel (2020-03-07 06:49:00 Test Item Value Reference Range Interpretation Comments Glucose (test code = 2345-7) 441 mg/dL 65-99 H BUN (test code = 3094-0) 52 mg/dL 6-24 H Creatinine (test code = 2.05 mg/dL 0.76-1.27 H 2160-0) eGFR If NonAfricn Am (test 38 mL/min/1.73 >59 L code = 30091-4) eGFR If Africn Am (test code = 44 mL/min/1.73 >59 L 52821-4) BUN/Creatinine Ratio (test 25 9-20 H code = 3097-3) Sodium (test code = 2951-2) 138 mmol/L 134-144 Potassium (test code = 2823-3) 5.4 mmol/L 3.5-5.2 H Chloride (test code = 5-0) 96 mmol/L 96-106 Carbon Dioxide, Total (test 29 mmol/L 20-29 code = 8-9) Calcium (test code = 18281-4) 9.2 mg/dL 8.7-10.2 Protein, Total (test code = 6.2 g/dL 6.0-8.5 2885-2) Albumin (test code = 1751-7) 3.4 g/dL 4.0-5.0 L Globulin, Total (test code = 2.8 g/dL 1.5-4.5 86877-5) A/G Ratio (test code = 1759-0) 1.2 1.2-2.2 Bilirubin, Total (test code = 0.5 mg/dL 0.0-1.2 1975-2) Alkaline Phosphatase (test 112 IU/L 39-117 code = 6768-6) AST (SGOT) (test code = 21 IU/L 0-40 1920-8) ALT (SGPT) (test code = 31 IU/L 0-44 1742-6) [facility] Description: Comp. Metabolic Panel (142020-03-07 06:49:00 Test Item Value Reference Range Interpretation Comments Glucose (test code = 2345-7) 441 mg/dL 65-99 H BUN (test code = 3094-0) 52 mg/dL 6-24 H Creatinine (test code = 2.05 mg/dL 0.76-1.27 H 2160-0) eGFR If NonAfricn Am (test 38 mL/min/1.73 >59 L code = 09015-2) eGFR If Africn Am (test code = 44 mL/min/1.73 >59 L 17865-6) BUN/Creatinine Ratio (test 25 9-20 H code = 3097-3) Sodium (test code = 2951-2) 138 mmol/L 134-144 Potassium (test code = 2823-3) 5.4 mmol/L 3.5-5.2 H Chloride (test code = 2075-0) 96 mmol/L 96-106 Carbon Dioxide, Total (test 29 mmol/L 20-29 code = 8-9) Calcium (test code = 61654-6) 9.2 mg/dL 8.7-10.2 Protein, Total (test code = 6.2 g/dL 6.0-8.5 2885-2) Albumin (test code = 1751-7) 3.4 g/dL 4.0-5.0 L Globulin, Total (test code = 2.8 g/dL 1.5-4.5 14485-0) A/G Ratio (test code = 1759-0) 1.2 1.2-2.2 Bilirubin, Total (test code = 0.5 mg/dL 0.0-1.2 1974-2) Alkaline Phosphatase (test 112 IU/L 39-117 code = 6768-6) AST (SGOT) (test code = 21 IU/L 0-40 1920-8) ALT (SGPT) (test code = 31 IU/L 0-44 1742-6) [facility] Description: Comp. Metabolic Panel (14)2020-03-07 06:49:00 Test Item Value Reference Range Interpretation Comments Glucose (test code = 2345-7) 441 mg/dL 65-99 H BUN (test code = 3094-0) 52 mg/dL 6-24 H Creatinine (test code = 2.05 mg/dL 0.76-1.27 H 2160-0) eGFR If NonAfricn Am (test 38 mL/min/1.73 >59 L code = 61221-0) eGFR If Africn Am (test code = 44 mL/min/1.73 >59 L 52349-1) BUN/Creatinine Ratio (test 25 9-20 H code = 3097-3) Sodium (test code = 2951-2) 138 mmol/L 134-144 Potassium (test code = 2823-3) 5.4 mmol/L 3.5-5.2 H Chloride (test code = 2075-0) 96 mmol/L 96-106 Carbon Dioxide, Total (test 29 mmol/L 20-29 code = 2027-9) Calcium (test code = 58999-0) 9.2 mg/dL 8.7-10.2 Protein, Total (test code = 6.2 g/dL 6.0-8.5 2885-2) Albumin (test code = 1751-7) 3.4 g/dL 4.0-5.0 L Globulin, Total (test code = 2.8 g/dL 1.5-4.5 50091-0) A/G Ratio (test code = 1759-0) 1.2 1.2-2.2 Bilirubin, Total (test code = 0.5 mg/dL 0.0-1.2 1974-04) Alkaline Phosphatase (test 112 IU/L 39-117 code = 6768-6) AST (SGOT) (test code = 21 IU/L 0-40 1920-8) ALT (SGPT) (test code = 31 IU/L 0-44 1742-6) [facility] Description: Comp. Metabolic Panel (14)2020-03-07 06:49:00 Test Item Value Reference Range Interpretation Comments Glucose (test code = 2345-7) 441 mg/dL 65-99 H BUN (test code = 3094-0) 52 mg/dL 6-24 H Creatinine (test code = 2.05 mg/dL 0.76-1.27 H 2160-0) eGFR If NonAfricn Am (test 38 mL/min/1.73 >59 L code = 63685-2) eGFR If Africn Am (test code = 44 mL/min/1.73 >59 L 91654-5) BUN/Creatinine Ratio (test 25 9-20 H code = 3097-3) Sodium (test code = 2951-2) 138 mmol/L 134-144 Potassium (test code = 2823-3) 5.4 mmol/L 3.5-5.2 H Chloride (test code = 2075-0) 96 mmol/L 96-106 Carbon Dioxide, Total (test 29 mmol/L 20-29 code = 2027-9) Calcium (test code = 35382-5) 9.2 mg/dL 8.7-10.2 Protein, Total (test code = 6.2 g/dL 6.0-8.5 2885-2) Albumin (test code = 1751-7) 3.4 g/dL 4.0-5.0 L Globulin, Total (test code = 2.8 g/dL 1.5-4.5 25570-7) A/G Ratio (test code = 1759-0) 1.2 1.2-2.2 Bilirubin, Total (test code = 0.5 mg/dL 0.0-1.2 1974-04) Alkaline Phosphatase (test 112 IU/L 39-117 code = 6768-6) AST (SGOT) (test code = 21 IU/L 0-40 1920-8) ALT (SGPT) (test code = 31 IU/L 0-44 1742-6) [facility] Description: Comp. Metabolic Panel (14)2020-03-07 06:49:00 Test Item Value Reference Range Interpretation Comments Glucose (test code = 2345-7) 441 mg/dL 65-99 H BUN (test code = 3094-0) 52 mg/dL 6-24 H Creatinine (test code = 2.05 mg/dL 0.76-1.27 H 2160-0) eGFR If NonAfricn Am (test 38 mL/min/1.73 >59 L code = 27729-2) eGFR If Africn Am (test code = 44 mL/min/1.73 >59 L 74972-2) BUN/Creatinine Ratio (test 25 9-20 H code = 3097-3) Sodium (test code = 2951-2) 138 mmol/L 134-144 Potassium (test code = 2823-3) 5.4 mmol/L 3.5-5.2 H Chloride (test code = 2075-0) 96 mmol/L 96-106 Carbon Dioxide, Total (test 29 mmol/L 20-29 code = 2027-9) Calcium (test code = 03845-6) 9.2 mg/dL 8.7-10.2 Protein, Total (test code = 6.2 g/dL 6.0-8.5 2885-2) Albumin (test code = 1751-7) 3.4 g/dL 4.0-5.0 L Globulin, Total (test code = 2.8 g/dL 1.5-4.5 33226-4) A/G Ratio (test code = 1759-0) 1.2 1.2-2.2 Bilirubin, Total (test code = 0.5 mg/dL 0.0-1.2 1975-2) Alkaline Phosphatase (test 112 IU/L 39-117 code = 6768-6) AST (SGOT) (test code = 21 IU/L 0-40 1920-8) ALT (SGPT) (test code = 31 IU/L 0-44 1742-6) [facility] Description: Comp. Metabolic Panel (14)2020-03-07 06:49:00 Test Item Value Reference Range Interpretation Comments Glucose (test code = 2345-7) 441 mg/dL 65-99 H BUN (test code = 3094-0) 52 mg/dL 6-24 H Creatinine (test code = 2.05 mg/dL 0.76-1.27 H 2160-0) eGFR If NonAfricn Am (test 38 mL/min/1.73 >59 L code = 79783-6) eGFR If Africn Am (test code = 44 mL/min/1.73 >59 L 06460-9) BUN/Creatinine Ratio (test 25 9-20 H code = 3097-3) Sodium (test code = 2951-2) 138 mmol/L 134-144 Potassium (test code = 2823-3) 5.4 mmol/L 3.5-5.2 H Chloride (test code = 2075-0) 96 mmol/L 96-106 Carbon Dioxide, Total (test 29 mmol/L 20-29 code = 8-9) Calcium (test code = 96088-6) 9.2 mg/dL 8.7-10.2 Protein, Total (test code = 6.2 g/dL 6.0-8.5 2885-2) Albumin (test code = 1751-7) 3.4 g/dL 4.0-5.0 L Globulin, Total (test code = 2.8 g/dL 1.5-4.5 29641-6) A/G Ratio (test code = 1759-0) 1.2 1.2-2.2 Bilirubin, Total (test code = 0.5 mg/dL 0.0-1.2 1975-2) Alkaline Phosphatase (test 112 IU/L 39-117 code = 6768-6) AST (SGOT) (test code = 21 IU/L 0-40 1920-8) ALT (SGPT) (test code = 31 IU/L 0-44 1742-6) [facility] Description: Comp. Metabolic Panel (142020-03-07 06:49:00 Test Item Value Reference Range Interpretation Comments Glucose (test code = 2345-7) 441 mg/dL 65-99 H BUN (test code = 3094-0) 52 mg/dL 6-24 H Creatinine (test code = 2.05 mg/dL 0.76-1.27 H 2160-0) eGFR If NonAfricn Am (test 38 mL/min/1.73 >59 L code = 44114-9) eGFR If Africn Am (test code = 44 mL/min/1.73 >59 L 72042-6) BUN/Creatinine Ratio (test 25 9-20 H code = 3097-3) Sodium (test code = 2951-2) 138 mmol/L 134-144 Potassium (test code = 2823-3) 5.4 mmol/L 3.5-5.2 H Chloride (test code = 2075-0) 96 mmol/L 96-106 Carbon Dioxide, Total (test 29 mmol/L 20-29 code = 8-9) Calcium (test code = 74802-8) 9.2 mg/dL 8.7-10.2 Protein, Total (test code = 6.2 g/dL 6.0-8.5 2885-2) Albumin (test code = 1751-7) 3.4 g/dL 4.0-5.0 L Globulin, Total (test code = 2.8 g/dL 1.5-4.5 55965-0) A/G Ratio (test code = 1759-0) 1.2 1.2-2.2 Bilirubin, Total (test code = 0.5 mg/dL 0.0-1.2 1975-2) Alkaline Phosphatase (test 112 IU/L 39-117 code = 6768-6) AST (SGOT) (test code = 21 IU/L 0-40 1920-8) ALT (SGPT) (test code = 31 IU/L 0-44 1742-6) [facility] Description: Comp. Metabolic Panel (142020-03-07 06:49:00 Test Item Value Reference Range Interpretation Comments Glucose (test code = 2345-7) 441 mg/dL 65-99 H BUN (test code = 3094-0) 52 mg/dL 6-24 H Creatinine (test code = 2.05 mg/dL 0.76-1.27 H 2160-0) eGFR If NonAfricn Am (test 38 mL/min/1.73 >59 L code = 67092-9) eGFR If Africn Am (test code = 44 mL/min/1.73 >59 L 51010-2) BUN/Creatinine Ratio (test 25 9-20 H code = 3097-3) Sodium (test code = 2951-2) 138 mmol/L 134-144 Potassium (test code = 2823-3) 5.4 mmol/L 3.5-5.2 H Chloride (test code = 2075-0) 96 mmol/L 96-106 Carbon Dioxide, Total (test 29 mmol/L 20-29 code = 8-9) Calcium (test code = 09661-3) 9.2 mg/dL 8.7-10.2 Protein, Total (test code = 6.2 g/dL 6.0-8.5 2885-2) Albumin (test code = 1751-7) 3.4 g/dL 4.0-5.0 L Globulin, Total (test code = 2.8 g/dL 1.5-4.5 02884-4) A/G Ratio (test code = 1759-0) 1.2 1.2-2.2 Bilirubin, Total (test code = 0.5 mg/dL 0.0-1.2 1975-2) Alkaline Phosphatase (test 112 IU/L 39-117 code = 6768-6) AST (SGOT) (test code = 21 IU/L 0-40 1920-8) ALT (SGPT) (test code = 31 IU/L 0-44 1742-6) [facility] Description: Comp. Metabolic Panel (142020-03-07 06:49:00 Test Item Value Reference Range Interpretation Comments Glucose (test code = 2345-7) 441 mg/dL 65-99 H BUN (test code = 3094-0) 52 mg/dL 6-24 H Creatinine (test code = 2.05 mg/dL 0.76-1.27 H 2160-0) eGFR If NonAfricn Am (test 38 mL/min/1.73 >59 L code = 87294-2) eGFR If Africn Am (test code = 44 mL/min/1.73 >59 L 40836-0) BUN/Creatinine Ratio (test 25 9-20 H code = 3097-3) Sodium (test code = 2951-2) 138 mmol/L 134-144 Potassium (test code = 2823-3) 5.4 mmol/L 3.5-5.2 H Chloride (test code = 2075-0) 96 mmol/L 96-106 Carbon Dioxide, Total (test 29 mmol/L 20- code = 2027-9) Calcium (test code = 02284-5) 9.2 mg/dL 8.7-10.2 Protein, Total (test code = 6.2 g/dL 6.0-8.5 2885-2) Albumin (test code = 1751-7) 3.4 g/dL 4.0-5.0 L Globulin, Total (test code = 2.8 g/dL 1.5-4.5 09226-2) A/G Ratio (test code = 1759-0) 1.2 1.2-2.2 Bilirubin, Total (test code = 0.5 mg/dL 0.0-1.2 1975-2) Alkaline Phosphatase (test 112 IU/L 39-117 code = 6768-6) AST (SGOT) (test code = 21 IU/L 0-40 1920-8) ALT (SGPT) (test code = 31 IU/L 0-44 1742-6) [facility] Description: Comp. Metabolic Panel (14)2020-03-07 06:49:00 Test Item Value Reference Range Interpretation Comments Glucose (test code = 2345-7) 441 mg/dL 65-99 H BUN (test code = 3094-0) 52 mg/dL 6-24 H Creatinine (test code = 2.05 mg/dL 0.76-1.27 H 2160-0) eGFR If NonAfricn Am (test 38 mL/min/1.73 >59 L code = 91032-3) eGFR If Africn Am (test code = 44 mL/min/1.73 >59 L 03247-4) BUN/Creatinine Ratio (test 25 9-20 H code = 3097-3) Sodium (test code = 2951-2) 138 mmol/L 134-144 Potassium (test code = 2823-3) 5.4 mmol/L 3.5-5.2 H Chloride (test code = 2075-0) 96 mmol/L 96-106 Carbon Dioxide, Total (test 29 mmol/L -29 code = 2027-9) Calcium (test code = 86880-9) 9.2 mg/dL 8.7-10.2 Protein, Total (test code = 6.2 g/dL 6.0-8.5 2885-2) Albumin (test code = 1751-7) 3.4 g/dL 4.0-5.0 L Globulin, Total (test code = 2.8 g/dL 1.5-4.5 87599-4) A/G Ratio (test code = 1759-0) 1.2 1.2-2.2 Bilirubin, Total (test code = 0.5 mg/dL 0.0-1.2 1975-2) Alkaline Phosphatase (test 112 IU/L 39-117 code = 6768-6) AST (SGOT) (test code = 21 IU/L 0-40 1920-8) ALT (SGPT) (test code = 31 IU/L 0-44 1742-6) [facility] Description: Comp. Metabolic Panel (2020-03-07 06:49:00 Test Item Value Reference Range Interpretation Comments Glucose (test code = 2345-7) 441 mg/dL 65-99 H BUN (test code = 3094-0) 52 mg/dL 6-24 H Creatinine (test code = 2.05 mg/dL 0.76-1.27 H 2160-0) eGFR If NonAfricn Am (test 38 mL/min/1.73 >59 L code = 33270-2) eGFR If Africn Am (test code = 44 mL/min/1.73 >59 L 90269-0) BUN/Creatinine Ratio (test 25 9-20 H code = 3097-3) Sodium (test code = 2951-2) 138 mmol/L 134-144 Potassium (test code = 2823-3) 5.4 mmol/L 3.5-5.2 H Chloride (test code = 2075-0) 96 mmol/L 96-106 Carbon Dioxide, Total (test 29 mmol/L 20-29 code = 8-9) Calcium (test code = 17714-5) 9.2 mg/dL 8.7-10.2 Protein, Total (test code = 6.2 g/dL 6.0-8.5 2885-2) Albumin (test code = 1751-7) 3.4 g/dL 4.0-5.0 L Globulin, Total (test code = 2.8 g/dL 1.5-4.5 07194-7) A/G Ratio (test code = 1759-0) 1.2 1.2-2.2 Bilirubin, Total (test code = 0.5 mg/dL 0.0-1.2 1974-2) Alkaline Phosphatase (test 112 IU/L 39-117 code = 6768-6) AST (SGOT) (test code = 21 IU/L 0-40 1920-8) ALT (SGPT) (test code = 31 IU/L 0-44 1742-6) [facility] (2020-03-07 06:49:00 Test Item Value Reference Range Interpretation Comments Glucose (test code = 2345-7) 441 mg/dL 65-99 H BUN (test code = 3094-0) 52 mg/dL 6-24 H Creatinine (test code = 2.05 mg/dL 0.76-1.27 H 2160-0) eGFR If NonAfricn Am (test 38 mL/min/1.73 >59 L code = 73669-6) eGFR If Africn Am (test code = 44 mL/min/1.73 >59 L 08677-0) BUN/Creatinine Ratio (test 25 9-20 H code = 3097-3) Sodium (test code = 2951-2) 138 mmol/L 134-144 Potassium (test code = 2823-3) 5.4 mmol/L 3.5-5.2 H Chloride (test code = 2075-0) 96 mmol/L 96-106 Carbon Dioxide, Total (test 29 mmol/L 20-29 code = 8-9) Calcium (test code = 46656-1) 9.2 mg/dL 8.7-10.2 Protein, Total (test code = 6.2 g/dL 6.0-8.5 2885-2) Albumin (test code = 1751-7) 3.4 g/dL 4.0-5.0 L Globulin, Total (test code = 2.8 g/dL 1.5-4.5 83091-9) A/G Ratio (test code = 1759-0) 1.2 1.2-2.2 Bilirubin, Total (test code = 0.5 mg/dL 0.0-1.2 1974-2) Alkaline Phosphatase (test 112 IU/L 39-117 code = 6768-6) AST (SGOT) (test code = 21 IU/L 0-40 1920-8) ALT (SGPT) (test code = 31 IU/L 0-44 1742-6) [facility] (14)2020-03-07 06:49:00 Test Item Value Reference Range Interpretation Comments Glucose (test code = 2345-7) 441 mg/dL 65-99 H BUN (test code = 3094-0) 52 mg/dL 6-24 H Creatinine (test code = 2.05 mg/dL 0.76-1.27 H 2160-0) eGFR If NonAfricn Am (test 38 mL/min/1.73 >59 L code = 37647-8) eGFR If Africn Am (test code = 44 mL/min/1.73 >59 L 62336-4) BUN/Creatinine Ratio (test 25 9-20 H code = 3097-3) Sodium (test code = 2951-2) 138 mmol/L 134-144 Potassium (test code = 2823-3) 5.4 mmol/L 3.5-5.2 H Chloride (test code = 2075-0) 96 mmol/L 96-106 Carbon Dioxide, Total (test 29 mmol/L 20-29 code = 8-9) Calcium (test code = 79446-7) 9.2 mg/dL 8.7-10.2 Protein, Total (test code = 6.2 g/dL 6.0-8.5 2885-2) Albumin (test code = 1751-7) 3.4 g/dL 4.0-5.0 L Globulin, Total (test code = 2.8 g/dL 1.5-4.5 50828-5) A/G Ratio (test code = 1759-0) 1.2 1.2-2.2 Bilirubin, Total (test code = 0.5 mg/dL 0.0-1.2 1975-2) Alkaline Phosphatase (test 112 IU/L 39-117 code = 6768-6) AST (SGOT) (test code = 21 IU/L 0-40 1920-8) ALT (SGPT) (test code = 31 IU/L 0-44 1742-6) [facility] (14)2020-03-07 06:49:00 Test Item Value Reference Range Interpretation Comments Glucose (test code = 2345-7) 441 mg/dL 65-99 H BUN (test code = 3094-0) 52 mg/dL 6-24 H Creatinine (test code = 2.05 mg/dL 0.76-1.27 H 2160-0) eGFR If NonAfricn Am (test 38 mL/min/1.73 >59 L code = 12844-5) eGFR If Africn Am (test code = 44 mL/min/1.73 >59 L 24079-7) BUN/Creatinine Ratio (test 25 9-20 H code = 3097-3) Sodium (test code = 2951-2) 138 mmol/L 134-144 Potassium (test code = 2823-3) 5.4 mmol/L 3.5-5.2 H Chloride (test code = 2075-0) 96 mmol/L 96-106 Carbon Dioxide, Total (test 29 mmol/L 20-29 code = 2027-9) Calcium (test code = 27479-8) 9.2 mg/dL 8.7-10.2 Protein, Total (test code = 6.2 g/dL 6.0-8.5 2885-2) Albumin (test code = 1751-7) 3.4 g/dL 4.0-5.0 L Globulin, Total (test code = 2.8 g/dL 1.5-4.5 25418-5) A/G Ratio (test code = 1759-0) 1.2 1.2-2.2 Bilirubin, Total (test code = 0.5 mg/dL 0.0-1.2 1975-2) Alkaline Phosphatase (test 112 IU/L 39-117 code = 6768-6) AST (SGOT) (test code = 21 IU/L 0-40 1920-8) ALT (SGPT) (test code = 31 IU/L 0-44 1742-6) [facility] Description: Comp. Metabolic Panel (14)2020-03-07 06:49:00 Test Item Value Reference Range Interpretation Comments Glucose (test code = 2345-7) 441 mg/dL 65-99 H BUN (test code = 3094-0) 52 mg/dL 6-24 H Creatinine (test code = 2.05 mg/dL 0.76-1.27 H 2160-0) eGFR If NonAfricn Am (test 38 mL/min/1.73 >59 L code = 44491-8) eGFR If Africn Am (test code = 44 mL/min/1.73 >59 L 99361-4) BUN/Creatinine Ratio (test 25 9-20 H code = 3097-3) Sodium (test code = 2951-2) 138 mmol/L 134-144 Potassium (test code = 2823-3) 5.4 mmol/L 3.5-5.2 H Chloride (test code = 2075-0) 96 mmol/L 96-106 Carbon Dioxide, Total (test 29 mmol/L 20-29 code = 8-9) Calcium (test code = 66169-6) 9.2 mg/dL 8.7-10.2 Protein, Total (test code = 6.2 g/dL 6.0-8.5 2885-2) Albumin (test code = 1751-7) 3.4 g/dL 4.0-5.0 L Globulin, Total (test code = 2.8 g/dL 1.5-4.5 86045-2) A/G Ratio (test code = 1759-0) 1.2 1.2-2.2 Bilirubin, Total (test code = 0.5 mg/dL 0.0-1.2 1975-2) Alkaline Phosphatase (test 112 IU/L 39-117 code = 6768-6) AST (SGOT) (test code = 21 IU/L 0-40 1920-8) ALT (SGPT) (test code = 31 IU/L 0-44 1742-6) [facility] Description: Comp. Metabolic Panel ()2020-03-07 06:49:00 Test Item Value Reference Range Interpretation Comments Glucose (test code = 2345-7) 441 mg/dL 65-99 H BUN (test code = 3094-0) 52 mg/dL 6-24 H Creatinine (test code = 2.05 mg/dL 0.76-1.27 H 2160-0) eGFR If NonAfricn Am (test 38 mL/min/1.73 >59 L code = 16436-6) eGFR If Africn Am (test code = 44 mL/min/1.73 >59 L 13545-6) BUN/Creatinine Ratio (test 25 9-20 H code = 3097-3) Sodium (test code = 2951-2) 138 mmol/L 134-144 Potassium (test code = 2823-3) 5.4 mmol/L 3.5-5.2 H Chloride (test code = 2075-0) 96 mmol/L 96-106 Carbon Dioxide, Total (test 29 mmol/L 20-29 code = 8-9) Calcium (test code = 56873-1) 9.2 mg/dL 8.7-10.2 Protein, Total (test code = 6.2 g/dL 6.0-8.5 2885-2) Albumin (test code = 1751-7) 3.4 g/dL 4.0-5.0 L Globulin, Total (test code = 2.8 g/dL 1.5-4.5 15978-5) A/G Ratio (test code = 1759-0) 1.2 1.2-2.2 Bilirubin, Total (test code = 0.5 mg/dL 0.0-1.2 1975-2) Alkaline Phosphatase (test 112 IU/L 39-117 code = 6768-6) AST (SGOT) (test code = 21 IU/L 0-40 1920-8) ALT (SGPT) (test code = 31 IU/L 0-44 1742-6) [facility] Description: Comp. Metabolic Panel (14)2020-03-07 06:49:00 Test Item Value Reference Range Interpretation Comments Glucose (test code = 2345-7) 441 mg/dL 65-99 H BUN (test code = 3094-0) 52 mg/dL 6-24 H Creatinine (test code = 2.05 mg/dL 0.76-1.27 H 2160-0) eGFR If NonAfricn Am (test 38 mL/min/1.73 >59 L code = 40265-8) eGFR If Africn Am (test code = 44 mL/min/1.73 >59 L 90167-5) BUN/Creatinine Ratio (test 25 9-20 H code = 3097-3) Sodium (test code = 2951-2) 138 mmol/L 134-144 Potassium (test code = 2823-3) 5.4 mmol/L 3.5-5.2 H Chloride (test code = 2075-0) 96 mmol/L 96-106 Carbon Dioxide, Total (test 29 mmol/L - code = 2027-) Calcium (test code = 81799-5) 9.2 mg/dL 8.7-10.2 Protein, Total (test code = 6.2 g/dL 6.0-8.5 2885-2) Albumin (test code = 1751-7) 3.4 g/dL 4.0-5.0 L Globulin, Total (test code = 2.8 g/dL 1.5-4.5 92204-6) A/G Ratio (test code = 1759-0) 1.2 1.2-2.2 Bilirubin, Total (test code = 0.5 mg/dL 0.0-1.2 1975-2) Alkaline Phosphatase (test 112 IU/L 39-117 code = 6768-6) AST (SGOT) (test code = 21 IU/L 0-40 1920-8) ALT (SGPT) (test code = 31 IU/L 0-44 1742-6) [facility] Description: Comp. Metabolic Panel (14)2020-03-07 06:49:00 Test Item Value Reference Range Interpretation Comments Glucose (test code = 2345-7) 441 mg/dL 65-99 H BUN (test code = 3094-0) 52 mg/dL 6-24 H Creatinine (test code = 2.05 mg/dL 0.76-1.27 H 2160-0) eGFR If NonAfricn Am (test 38 mL/min/1.73 >59 L code = 17745-7) eGFR If Africn Am (test code = 44 mL/min/1.73 >59 L 75977-9) BUN/Creatinine Ratio (test 25 9-20 H code = 3097-3) Sodium (test code = 2951-2) 138 mmol/L 134-144 Potassium (test code = 2823-3) 5.4 mmol/L 3.5-5.2 H Chloride (test code = 2075-0) 96 mmol/L 96-106 Carbon Dioxide, Total (test 29 mmol/L - code = 2027-) Calcium (test code = 50088-9) 9.2 mg/dL 8.7-10.2 Protein, Total (test code = 6.2 g/dL 6.0-8.5 2885-2) Albumin (test code = 1751-7) 3.4 g/dL 4.0-5.0 L Globulin, Total (test code = 2.8 g/dL 1.5-4.5 21811-5) A/G Ratio (test code = 1759-0) 1.2 1.2-2.2 Bilirubin, Total (test code = 0.5 mg/dL 0.0-1.2 1975-2) Alkaline Phosphatase (test 112 IU/L 39-117 code = 6768-6) AST (SGOT) (test code = 21 IU/L 0-40 1920-8) ALT (SGPT) (test code = 31 IU/L 0-44 1742-6) [facility] Description: Comp. Metabolic Panel (2020-03-07 06:49:00 Test Item Value Reference Range Interpretation Comments Glucose (test code = 2345-7) 441 mg/dL 65-99 H BUN (test code = 3094-0) 52 mg/dL 6-24 H Creatinine (test code = 2.05 mg/dL 0.76-1.27 H 2160-0) eGFR If NonAfricn Am (test 38 mL/min/1.73 >59 L code = 24769-7) eGFR If Africn Am (test code = 44 mL/min/1.73 >59 L 17456-3) BUN/Creatinine Ratio (test 25 9-20 H code = 3097-3) Sodium (test code = 2951-2) 138 mmol/L 134-144 Potassium (test code = 2823-3) 5.4 mmol/L 3.5-5.2 H Chloride (test code = 2075-0) 96 mmol/L 96-106 Carbon Dioxide, Total (test 29 mmol/L 20-29 code = 2027-9) Calcium (test code = 28367-7) 9.2 mg/dL 8.7-10.2 Protein, Total (test code = 6.2 g/dL 6.0-8.5 2885-2) Albumin (test code = 1751-7) 3.4 g/dL 4.0-5.0 L Globulin, Total (test code = 2.8 g/dL 1.5-4.5 28111-3) A/G Ratio (test code = 1759-0) 1.2 1.2-2.2 Bilirubin, Total (test code = 0.5 mg/dL 0.0-1.2 1975-2) Alkaline Phosphatase (test 112 IU/L 39-117 code = 6768-6) AST (SGOT) (test code = 21 IU/L 0-40 1920-8) ALT (SGPT) (test code = 31 IU/L 0-44 1742-6) [facility] Description: Comp. Metabolic Panel (2020-03-07 06:49:00 Test Item Value Reference Range Interpretation Comments Glucose (test code = 2345-7) 441 mg/dL 65-99 H BUN (test code = 3094-0) 52 mg/dL 6-24 H Creatinine (test code = 2.05 mg/dL 0.76-1.27 H 2160-0) eGFR If NonAfricn Am (test 38 mL/min/1.73 >59 L code = 20467-1) eGFR If Africn Am (test code = 44 mL/min/1.73 >59 L 01795-7) BUN/Creatinine Ratio (test 25 9-20 H code = 3097-3) Sodium (test code = 2951-2) 138 mmol/L 134-144 Potassium (test code = 2823-3) 5.4 mmol/L 3.5-5.2 H Chloride (test code = 2075-0) 96 mmol/L 96-106 Carbon Dioxide, Total (test 29 mmol/L 20-29 code = 8-9) Calcium (test code = 56901-7) 9.2 mg/dL 8.7-10.2 Protein, Total (test code = 6.2 g/dL 6.0-8.5 2885-2) Albumin (test code = 1751-7) 3.4 g/dL 4.0-5.0 L Globulin, Total (test code = 2.8 g/dL 1.5-4.5 17547-4) A/G Ratio (test code = 1759-0) 1.2 1.2-2.2 Bilirubin, Total (test code = 0.5 mg/dL 0.0-1.2 1974-2) Alkaline Phosphatase (test 112 IU/L 39-117 code = 6768-6) AST (SGOT) (test code = 21 IU/L 0-40 1920-8) ALT (SGPT) (test code = 31 IU/L 0-44 1742-6) [facility] Description: Comp. Metabolic Panel (2020-03-07 06:49:00 Test Item Value Reference Range Interpretation Comments Glucose (test code = 2345-7) 441 mg/dL 65-99 H BUN (test code = 3094-0) 52 mg/dL 6-24 H Creatinine (test code = 2.05 mg/dL 0.76-1.27 H 2160-0) eGFR If NonAfricn Am (test 38 mL/min/1.73 >59 L code = 97510-9) eGFR If Africn Am (test code = 44 mL/min/1.73 >59 L 56140-1) BUN/Creatinine Ratio (test 25 9-20 H code = 3097-3) Sodium (test code = 2951-2) 138 mmol/L 134-144 Potassium (test code = 2823-3) 5.4 mmol/L 3.5-5.2 H Chloride (test code = 2075-0) 96 mmol/L 96-106 Carbon Dioxide, Total (test 29 mmol/L 20-29 code = 8-9) Calcium (test code = 16028-2) 9.2 mg/dL 8.7-10.2 Protein, Total (test code = 6.2 g/dL 6.0-8.5 2885-2) Albumin (test code = 1751-7) 3.4 g/dL 4.0-5.0 L Globulin, Total (test code = 2.8 g/dL 1.5-4.5 62829-0) A/G Ratio (test code = 1759-0) 1.2 1.2-2.2 Bilirubin, Total (test code = 0.5 mg/dL 0.0-1.2 1974-2) Alkaline Phosphatase (test 112 IU/L 39-117 code = 6768-6) AST (SGOT) (test code = 21 IU/L 0-40 1920-8) ALT (SGPT) (test code = 31 IU/L 0-44 1742-6) [facility] Description: Comp. Metabolic Panel (14)2020-03-07 06:49:00 Test Item Value Reference Range Interpretation Comments Glucose (test code = 2345-7) 441 mg/dL 65-99 H BUN (test code = 3094-0) 52 mg/dL 6-24 H Creatinine (test code = 2.05 mg/dL 0.76-1.27 H 2160-0) eGFR If NonAfricn Am (test 38 mL/min/1.73 >59 L code = 74706-0) eGFR If Africn Am (test code = 44 mL/min/1.73 >59 L 87714-6) BUN/Creatinine Ratio (test 25 9-20 H code = 3097-3) Sodium (test code = 2951-2) 138 mmol/L 134-144 Potassium (test code = 2823-3) 5.4 mmol/L 3.5-5.2 H Chloride (test code = 2075-0) 96 mmol/L 96-106 Carbon Dioxide, Total (test 29 mmol/L 20-29 code = 8-9) Calcium (test code = 58386-0) 9.2 mg/dL 8.7-10.2 Protein, Total (test code = 6.2 g/dL 6.0-8.5 2885-2) Albumin (test code = 1751-7) 3.4 g/dL 4.0-5.0 L Globulin, Total (test code = 2.8 g/dL 1.5-4.5 67528-5) A/G Ratio (test code = 1759-0) 1.2 1.2-2.2 Bilirubin, Total (test code = 0.5 mg/dL 0.0-1.2 1975-2) Alkaline Phosphatase (test 112 IU/L 39-117 code = 6768-6) AST (SGOT) (test code = 21 IU/L 0-40 1920-8) ALT (SGPT) (test code = 31 IU/L 0-44 1742-6) [facility] Description: Comp. Metabolic Panel (14)2020-03-07 06:49:00 Test Item Value Reference Range Interpretation Comments Glucose (test code = 2345-7) 441 mg/dL 65-99 H BUN (test code = 3094-0) 52 mg/dL 6-24 H Creatinine (test code = 2.05 mg/dL 0.76-1.27 H 2160-0) eGFR If NonAfricn Am (test 38 mL/min/1.73 >59 L code = 31364-4) eGFR If Africn Am (test code = 44 mL/min/1.73 >59 L 56345-6) BUN/Creatinine Ratio (test 25 9-20 H code = 3097-3) Sodium (test code = 2951-2) 138 mmol/L 134-144 Potassium (test code = 2823-3) 5.4 mmol/L 3.5-5.2 H Chloride (test code = 2075-0) 96 mmol/L 96-106 Carbon Dioxide, Total (test 29 mmol/L 20-29 code = 8-9) Calcium (test code = 79979-3) 9.2 mg/dL 8.7-10.2 Protein, Total (test code = 6.2 g/dL 6.0-8.5 2885-2) Albumin (test code = 1751-7) 3.4 g/dL 4.0-5.0 L Globulin, Total (test code = 2.8 g/dL 1.5-4.5 29912-6) A/G Ratio (test code = 1759-0) 1.2 1.2-2.2 Bilirubin, Total (test code = 0.5 mg/dL 0.0-1.2 1975-2) Alkaline Phosphatase (test 112 IU/L 39-117 code = 6768-6) AST (SGOT) (test code = 21 IU/L 0-40 1920-8) ALT (SGPT) (test code = 31 IU/L 0-44 1742-6) [facility][id number] 07:17:11Tyshawn Serra MD 2019 7:47 AMIncision/DrainageDate/Time: 2019 [...] NoneType of anesthesia: NoneGrafts or Implan ts: [facility] Description: Hemoglobin A1c/Hemoglobin.total in [id number] 16:33:00 Test Item Value Reference Range Interpretation Comments Hemoglobin A1c (test code 13.0 % 4.8-5.6 H = 4548-4) . Prediabetes: 5. 7 - 6.4 Diabete s: >6.4 Glycemi c control for niall lts with diabetes: <7.0

P erforme d by:
[facility] [place] ([place])

[facility] Description: Hemoglobin A1c/Hemoglobin.total in Blood 2019-11-10 16:33:00 Test Item Value Reference Range Interpretation Comments Hemoglobin A1c (test code 13.0 % 4.8-5.6 H = 4548-4) . Prediabetes: 5. 7 - 6.4 Diabete s: >6.4 Glycemi c control for niall lts with diabetes: <7.0

P erforme d by:
[facility] [place] ([place])

[facility] Description: Hemoglobin A1c/Hemoglobin.total in Blood 2019-11-10 16:33:00 Test Item Value Reference Range Interpretation Comments Hemoglobin A1c (test code 13.0 % 4.8-5.6 H = 4548-4) . Prediabetes: 5. 7 - 6.4 Diabete s: >6.4 Glycemi c control for niall lts with diabetes: <7.0

P erforme d by:
[facility] [place] ([place])

[facility] Description: Hemoglobin A1c/Hemoglobin.total in Blood 2019-11-10 16:33:00 Test Item Value Reference Range Interpretation Comments Hemoglobin A1c (test code 13.0 % 4.8-5.6 H = 4548-4) . Prediabetes: 5. 7 - 6.4 Diabete s: >6.4 Glycemi c control for niall lts with diabetes: <7.0

P erforme d by:
[facility] [place] ([place])

[facility] Description: Hemoglobin A1c/Hemoglobin.total in Blood 2019-11-10 16:33:00 Test Item Value Reference Range Interpretation Comments Hemoglobin A1c (test code 13.0 % 4.8-5.6 H = 4548-4) . Prediabetes: 5. 7 - 6.4 Diabete s: >6.4 Glycemi c control for niall lts with diabetes: <7.0

P erforme d by:
[facility] [place] ([place])

[facility] Description: Hemoglobin A1c/Hemoglobin.total in Blood 2019-11-10 16:33:00 Test Item Value Reference Range Interpretation Comments Hemoglobin A1c (test code 13.0 % 4.8-5.6 H = 4548-4) . Prediabetes: 5. 7 - 6.4 Diabete s: >6.4 Glycemi c control for niall lts with diabetes: <7.0

P erforme d by:
[facility] [place] ([place])

[facility] Description: Hemoglobin A1c/Hemoglobin.total in Blood 2019-11-10 16:33:00 Test Item Value Reference Range Interpretation Comments Hemoglobin A1c (test code 13.0 % 4.8-5.6 H = 4548-4) . Prediabetes: 5. 7 - 6.4 Diabete s: >6.4 Glycemi c control for niall lts with diabetes: <7.0

P erforme d by:
[facility] [place] ([place])

[facility] Description: Hemoglobin A1c/Hemoglobin.total in Blood 2019-11-10 16:33:00 Test Item Value Reference Range Interpretation Comments Hemoglobin A1c (test code 13.0 % 4.8-5.6 H = 4548-4) . Prediabetes: 5. 7 - 6.4 Diabete s: >6.4 Glycemi c control for niall lts with diabetes: <7.0

P erforme d by:
[facility] [place] ([place])

[facility] Description: Hemoglobin A1c/Hemoglobin.total in Blood 2019-11-10 16:33:00 Test Item Value Reference Range Interpretation Comments Hemoglobin A1c (test code 13.0 % 4.8-5.6 H = 4548-4) . Prediabetes: 5. 7 - 6.4 Diabete s: >6.4 Glycemi c control for niall lts with diabetes: <7.0

P erforme d by:
[facility] [place] ([place])

[facility] Description: Hemoglobin A1c/Hemoglobin.total in Blood 2019-11-10 16:33:00 Test Item Value Reference Range Interpretation Comments Hemoglobin A1c (test code 13.0 % 4.8-5.6 H = 4548-4) . Prediabetes: 5. 7 - 6.4 Diabete s: >6.4 Glycemi c control for niall lts with diabetes: <7.0

P erforme d by:
[facility] [place] ([place])

[facility] Description: Hemoglobin A1c/Hemoglobin.total in Blood 2019-11-10 16:33:00 Test Item Value Reference Range Interpretation Comments Hemoglobin A1c (test code 13.0 % 4.8-5.6 H = 4548-4) . Prediabetes: 5. 7 - 6.4 Diabete s: >6.4 Glycemi c control for niall lts with diabetes: <7.0

P erforme d by:
[facility] [place] ([place])

[facility] Description: Hemoglobin A1c/Hemoglobin.total in Blood 2019-11-10 16:33:00 Test Item Value Reference Range Interpretation Comments Hemoglobin A1c (test code 13.0 % 4.8-5.6 H = 4548-4) . Prediabetes: 5. 7 - 6.4 Diabete s: >6.4 Glycemi c control for niall lts with diabetes: <7.0

P erforme d by:
[facility] [place] ([place])

[facility] Description: Hemoglobin A1c/Hemoglobin.total in Blood 2019-11-10 16:33:00 Test Item Value Reference Range Interpretation Comments Hemoglobin A1c (test code 13.0 % 4.8-5.6 H = 4548-4) . Prediabetes: 5. 7 - 6.4 Diabete s: >6.4 Glycemi c control for niall lts with diabetes: <7.0

P erforme d by:
[facility] [place] ([place])

[facility] Description: Hemoglobin A1c/Hemoglobin.total in Blood 2019-11-10 16:33:00 Test Item Value Reference Range Interpretation Comments Hemoglobin A1c (test code 13.0 % 4.8-5.6 H = 4548-4) . Prediabetes: 5. 7 - 6.4 Diabete s: >6.4 Glycemi c control for niall lts with diabetes: <7.0

P erforme d by:
[facility] [place] ([place])

[facility] Description: Hemoglobin A1c/Hemoglobin.total in Blood 2019-11-10 16:33:00 Test Item Value Reference Range Interpretation Comments Hemoglobin A1c (test code 13.0 % 4.8-5.6 H = 4548-4) . Prediabetes: 5. 7 - 6.4 Diabete s: >6.4 Glycemi c control for niall lts with diabetes: <7.0

P erforme d by:
[facility] [place] ([place])

[facility] Description: Hemoglobin A1c/Hemoglobin.total in Blood 2019-11-10 16:33:00 Test Item Value Reference Range Interpretation Comments Hemoglobin A1c (test code 13.0 % 4.8-5.6 H = 4548-4) . Prediabetes: 5. 7 - 6.4 Diabete s: >6.4 Glycemi c control for niall lts with diabetes: <7.0

P erforme d by:
[facility] [place] ([place])

[facility] Description: Hemoglobin A1c/Hemoglobin.total in Blood 2019-11-10 16:33:00 Test Item Value Reference Range Interpretation Comments Hemoglobin A1c (test code 13.0 % 4.8-5.6 H = 4548-4) . Prediabetes: 5. 7 - 6.4 Diabete s: >6.4 Glycemi c control for niall lts with diabetes: <7.0

P erforme d by:
[facility] [place] ([place])

[facility] Description: Hemoglobin A1c/Hemoglobin.total in Blood 2019-11-10 16:33:00 Test Item Value Reference Range Interpretation Comments Hemoglobin A1c (test code 13.0 % 4.8-5.6 H = 4548-4) . Prediabetes: 5. 7 - 6.4 Diabete s: >6.4 Glycemi c control for niall lts with diabetes: <7.0

P erforme d by:
[facility] [place] ([place])

[facility] Description: Hemoglobin A1c/Hemoglobin.total in Blood 2019-11-10 16:33:00 Test Item Value Reference Range Interpretation Comments Hemoglobin A1c (test code 13.0 % 4.8-5.6 H = 4548-4) . Prediabetes: 5. 7 - 6.4 Diabete s: >6.4 Glycemi c control for niall lts with diabetes: <7.0

P erforme d by:
[facility] [place] ([place])

[facility] Description: Hemoglobin A1c/Hemoglobin.total in Blood 2019-11-10 16:33:00 Test Item Value Reference Range Interpretation Comments Hemoglobin A1c (test code 13.0 % 4.8-5.6 H = 4548-4) . Prediabetes: 5. 7 - 6.4 Diabete s: >6.4 Glycemi c control for niall lts with diabetes: <7.0

P erforme d by:
[facility] [place] ([place])

[facility] Description: Hemoglobin A1c/Hemoglobin.total in Blood 2019-11-10 16:33:00 Test Item Value Reference Range Interpretation Comments Hemoglobin A1c (test code 13.0 % 4.8-5.6 H = 4548-4) . Prediabetes: 5. 7 - 6.4 Diabete s: >6.4 Glycemi c control for niall lts with diabetes: <7.0

P erforme d by:
[facility] [place] ([place])

[facility] Description: Hemoglobin A1c/Hemoglobin.total in Blood 2019-11-10 16:33:00 Test Item Value Reference Range Interpretation Comments Hemoglobin A1c (test code 13.0 % 4.8-5.6 H = 4548-4) . Prediabetes: 5. 7 - 6.4 Diabete s: >6.4 Glycemi c control for niall lts with diabetes: <7.0

P erforme d by:
[facility] [place] ([place])

[facility] Description: Hemoglobin A1c/Hemoglobin.total in Blood 2019-11-10 16:33:00 Test Item Value Reference Range Interpretation Comments Hemoglobin A1c (test code 13.0 % 4.8-5.6 H = 4548-4) . Prediabetes: 5. 7 - 6.4 Diabete s: >6.4 Glycemi c control for niall lts with diabetes: <7.0

P erforme d by:
[facility] [place] ([place])

[facility] Description: Hemoglobin A1c/Hemoglobin.total in Blood 2019-11-10 16:33:00 Test Item Value Reference Range Interpretation Comments Hemoglobin A1c (test code 13.0 % 4.8-5.6 H = 4548-4) . Prediabetes: 5. 7 - 6.4 Diabete s: >6.4 Glycemi c control for niall lts with diabetes: <7.0

P erforme d by:
[facility] [place] ([place])

[facility] Description: Hemoglobin A1c/Hemoglobin.total in Blood 2019-11-10 16:33:00 Test Item Value Reference Range Interpretation Comments Hemoglobin A1c (test code 13.0 % 4.8-5.6 H = 4548-4) . Prediabetes: 5. 7 - 6.4 Diabete s: >6.4 Glycemi c control for niall lts with diabetes: <7.0

P erforme d by:
[facility] [place] ([place])

[facility] Description: Hemoglobin A1c/Hemoglobin.total in Blood 2019-11-10 16:33:00 Test Item Value Reference Range Interpretation Comments Hemoglobin A1c (test code 13.0 % 4.8-5.6 H = 4548-4) . Prediabetes: 5. 7 - 6.4 Diabete s: >6.4 Glycemi c control for niall lts with diabetes: <7.0

P erforme d by:
[facility] [place] ([place])

[facility] Description: Hemoglobin A1c/Hemoglobin.total in Blood 2019-11-10 16:33:00 Test Item Value Reference Range Interpretation Comments Hemoglobin A1c (test code 13.0 % 4.8-5.6 H = 4548-4) . Prediabetes: 5. 7 - 6.4 Diabete s: >6.4 Glycemi c control for niall lts with diabetes: <7.0

P erforme d by:
[facility] ([place])

[facility] Description: Comp. Metabolic Panel ()2019-11-10 03:19:00 Test Item Value Reference Range Interpretation Comments Glucose (test code = 2345-7) 439 mg/dL 65-99 H BUN (test code = 3094-0) 49 mg/dL 6-24 H Creatinine (test code = 2.17 mg/dL 0.76-1.27 H 2160-0) eGFR If NonAfricn Am (test 35 mL/min/1.73 >59 L code = 89661-7) eGFR If Africn Am (test code = 41 mL/min/1.73 >59 L 06476-8) BUN/Creatinine Ratio (test 23 9-20 H code = 3097-3) Sodium (test code = 2951-2) 137 mmol/L 134-144 Potassium (test code = 2823-3) 4.9 mmol/L 3.5-5.2 Chloride (test code = 2075-0) 93 mmol/L 96-106 L Carbon Dioxide, Total (test 29 mmol/L 20-29 code = 2027-9) Calcium (test code = 12902-1) 9.5 mg/dL 8.7-10.2 Protein, Total (test code = 6.5 g/dL 6.0-8.5 2885-2) Albumin (test code = 1751-7) 3.6 g/dL 4.0-5.0 L Globulin, Total (test code = 2.9 g/dL 1.5-4.5 53663-2) A/G Ratio (test code = 1759-0) 1.2 1.2-2.2 Bilirubin, Total (test code = 0.5 mg/dL 0.0-1.2 1974-2) Alkaline Phosphatase (test 103 IU/L 39-117 code = 6768-6) AST (SGOT) (test code = 20 IU/L 0-40 1920-8) ALT (SGPT) (test code = 30 IU/L 0-44 1742-6) [facility] Description: Lipid [id number] 03:19:00 Test Item Value Reference Range Interpretation Comments Cholesterol, Total (test code = 231 mg/dL 100-199 H 3-3) Triglycerides (test code = 2571-8) 215 mg/dL 0-149 H HDL Cholesterol (test code = 34 mg/dL >39 L 5-9) VLDL Cholesterol Renuka (test code = 43 mg/dL 5-40 H 47844-3) LDL Cholesterol Calc (test code = 154 mg/dL 0-99 H 09252-5) Comment: (test code = 31371-0) [facility] Description: Comp. Metabolic Panel (14)2019-11-10 03:19:00 Test Item Value Reference Range Interpretation Comments Glucose (test code = 2345-7) 439 mg/dL 65-99 H BUN (test code = 3094-0) 49 mg/dL 6-24 H Creatinine (test code = 2.17 mg/dL 0.76-1.27 H 2160-0) eGFR If NonAfricn Am (test 35 mL/min/1.73 >59 L code = 48529-8) eGFR If Africn Am (test code = 41 mL/min/1.73 >59 L 68797-1) BUN/Creatinine Ratio (test 23 9-20 H code = 3097-3) Sodium (test code = 2951-2) 137 mmol/L 134-144 Potassium (test code = 2823-3) 4.9 mmol/L 3.5-5.2 Chloride (test code = 2075-0) 93 mmol/L 96-106 L Carbon Dioxide, Total (test 29 mmol/L 20-29 code = 2027-9) Calcium (test code = 56257-1) 9.5 mg/dL 8.7-10.2 Protein, Total (test code = 6.5 g/dL 6.0-8.5 2885-2) Albumin (test code = 1751-7) 3.6 g/dL 4.0-5.0 L Globulin, Total (test code = 2.9 g/dL 1.5-4.5 33108-8) A/G Ratio (test code = 1759-0) 1.2 1.2-2.2 Bilirubin, Total (test code = 0.5 mg/dL 0.0-1.2 1974-2) Alkaline Phosphatase (test 103 IU/L 39-117 code = 6768-6) AST (SGOT) (test code = 20 IU/L 0-40 1920-8) ALT (SGPT) (test code = 30 IU/L 0-44 1742-6) [facility]: Lipid [id number] 03:19:00 Test Item Value Reference Range Interpretation Comments Cholesterol, Total (test code = 231 mg/dL 100-199 H 3-3) Triglycerides (test code = 2571-8) 215 mg/dL 0-149 H HDL Cholesterol (test code = 34 mg/dL >39 L 2084-9) VLDL Cholesterol Renuka (test code = 43 mg/dL 5-40 H 88812-4) LDL Cholesterol Calc (test code = 154 mg/dL 0-99 H 55090-0) Comment: (test code = 07825-9) [facility]: Comp. Metabolic Panel (14)2019-11-10 03:19:00 Test Item Value Reference Range Interpretation Comments Glucose (test code = 2345-7) 439 mg/dL 65-99 H BUN (test code = 3094-0) 49 mg/dL 6-24 H Creatinine (test code = 2.17 mg/dL 0.76-1.27 H 2160-0) eGFR If NonAfricn Am (test 35 mL/min/1.73 >59 L code = 64281-7) eGFR If Africn Am (test code = 41 mL/min/1.73 >59 L 32027-7) BUN/Creatinine Ratio (test 23 9-20 H code = 3097-3) Sodium (test code = 2951-2) 137 mmol/L 134-144 Potassium (test code = 2823-3) 4.9 mmol/L 3.5-5.2 Chloride (test code = 2075-0) 93 mmol/L 96-106 L Carbon Dioxide, Total (test 29 mmol/L 20-29 code = 2027-9) Calcium (test code = 81616-5) 9.5 mg/dL 8.7-10.2 Protein, Total (test code = 6.5 g/dL 6.0-8.5 2885-2) Albumin (test code = 1751-7) 3.6 g/dL 4.0-5.0 L Globulin, Total (test code = 2.9 g/dL 1.5-4.5 99658-1) A/G Ratio (test code = 1759-0) 1.2 1.2-2.2 Bilirubin, Total (test code = 0.5 mg/dL 0.0-1.2 1975-2) Alkaline Phosphatase (test 103 IU/L 39-117 code = 6768-6) AST (SGOT) (test code = 20 IU/L 0-40 1920-8) ALT (SGPT) (test code = 30 IU/L 0-44 1742-6) [facility] Description: Lipid [id number] 03:19:00 Test Item Value Reference Range Interpretation Comments Cholesterol, Total (test code = 231 mg/dL 100-199 H 2093-3) Triglycerides (test code = 2571-8) 215 mg/dL 0-149 H HDL Cholesterol (test code = 34 mg/dL >39 L 5-9) VLDL Cholesterol Renuka (test code = 43 mg/dL 5-40 H 98920-9) LDL Cholesterol Calc (test code = 154 mg/dL 0-99 H 25698-2) Comment: (test code = 82320-9) [facility]: Comp. Metabolic Panel ()2019-11-10 03:19:00 Test Item Value Reference Range Interpretation Comments Glucose (test code = 2345-7) 439 mg/dL 65-99 H BUN (test code = 3094-0) 49 mg/dL 6-24 H Creatinine (test code = 2.17 mg/dL 0.76-1.27 H 2160-0) eGFR If NonAfricn Am (test 35 mL/min/1.73 >59 L code = 23437-8) eGFR If Africn Am (test code = 41 mL/min/1.73 >59 L 92862-8) BUN/Creatinine Ratio (test 23 9-20 H code = 3097-3) Sodium (test code = 2951-2) 137 mmol/L 134-144 Potassium (test code = 2823-3) 4.9 mmol/L 3.5-5.2 Chloride (test code = 2075-0) 93 mmol/L 96-106 L Carbon Dioxide, Total (test 29 mmol/L 20-29 code = 8-9) Calcium (test code = 84831-2) 9.5 mg/dL 8.7-10.2 Protein, Total (test code = 6.5 g/dL 6.0-8.5 2885-2) Albumin (test code = 1751-7) 3.6 g/dL 4.0-5.0 L Globulin, Total (test code = 2.9 g/dL 1.5-4.5 94459-1) A/G Ratio (test code = 1759-0) 1.2 1.2-2.2 Bilirubin, Total (test code = 0.5 mg/dL 0.0-1.2 1975-2) Alkaline Phosphatase (test 103 IU/L 39-117 code = 6768-6) AST (SGOT) (test code = 20 IU/L 0-40 1920-8) ALT (SGPT) (test code = 30 IU/L 0-44 1742-6) [facility]: Lipid [id number] 03:19:00 Test Item Value Reference Range Interpretation Comments Cholesterol, Total (test code = 231 mg/dL 100-199 H 2092-3) Triglycerides (test code = 2571-8) 215 mg/dL 0-149 H HDL Cholesterol (test code = 34 mg/dL >39 L 2084-9) VLDL Cholesterol Renuka (test code = 43 mg/dL 5-40 H 79004-4) LDL Cholesterol Calc (test code = 154 mg/dL 0-99 H 06359-7) Comment: (test code = 69496-1) [facility] Description: Comp. Metabolic Panel (14)2019-11-10 03:19:00 Test Item Value Reference Range Interpretation Comments Glucose (test code = 2345-7) 439 mg/dL 65-99 H BUN (test code = 3094-0) 49 mg/dL 6-24 H Creatinine (test code = 2.17 mg/dL 0.76-1.27 H 2160-0) eGFR If NonAfricn Am (test 35 mL/min/1.73 >59 L code = 54674-7) eGFR If Africn Am (test code = 41 mL/min/1.73 >59 L 82652-2) BUN/Creatinine Ratio (test 23 9-20 H code = 3097-3) Sodium (test code = 2951-2) 137 mmol/L 134-144 Potassium (test code = 2823-3) 4.9 mmol/L 3.5-5.2 Chloride (test code = 2075-0) 93 mmol/L 96-106 L Carbon Dioxide, Total (test 29 mmol/L 20-29 code = 8-9) Calcium (test code = 46710-3) 9.5 mg/dL 8.7-10.2 Protein, Total (test code = 6.5 g/dL 6.0-8.5 2885-2) Albumin (test code = 1751-7) 3.6 g/dL 4.0-5.0 L Globulin, Total (test code = 2.9 g/dL 1.5-4.5 33462-6) A/G Ratio (test code = 1759-0) 1.2 1.2-2.2 Bilirubin, Total (test code = 0.5 mg/dL 0.0-1.2 1975-2) Alkaline Phosphatase (test 103 IU/L 39-117 code = 6768-6) AST (SGOT) (test code = 20 IU/L 0-40 1920-8) ALT (SGPT) (test code = 30 IU/L 0-44 1742-6) [facility] Description: Lipid [id number] 03:19:00 Test Item Value Reference Range Interpretation Comments Cholesterol, Total (test code = 231 mg/dL 100-199 H 2092-3) Triglycerides (test code = 2571-8) 215 mg/dL 0-149 H HDL Cholesterol (test code = 34 mg/dL >39 L 5-9) VLDL Cholesterol Renuka (test code = 43 mg/dL 5-40 H 71190-3) LDL Cholesterol Calc (test code = 154 mg/dL 0-99 H 04208-7) Comment: (test code = 00579-1) [facility] Description: Comp. Metabolic Panel (2019-11-10 03:19:00 Test Item Value Reference Range Interpretation Comments Glucose (test code = 2345-7) 439 mg/dL 65-99 H BUN (test code = 3094-0) 49 mg/dL 6-24 H Creatinine (test code = 2.17 mg/dL 0.76-1.27 H 2160-0) eGFR If NonAfricn Am (test 35 mL/min/1.73 >59 L code = 71066-3) eGFR If Africn Am (test code = 41 mL/min/1.73 >59 L 36614-2) BUN/Creatinine Ratio (test 23 9-20 H code = 3097-3) Sodium (test code = 2951-2) 137 mmol/L 134-144 Potassium (test code = 2823-3) 4.9 mmol/L 3.5-5.2 Chloride (test code = 2075-0) 93 mmol/L 96-106 L Carbon Dioxide, Total (test 29 mmol/L 20-29 code = 8-9) Calcium (test code = 51865-6) 9.5 mg/dL 8.7-10.2 Protein, Total (test code = 6.5 g/dL 6.0-8.5 2885-2) Albumin (test code = 1751-7) 3.6 g/dL 4.0-5.0 L Globulin, Total (test code = 2.9 g/dL 1.5-4.5 64431-1) A/G Ratio (test code = 1759-0) 1.2 1.2-2.2 Bilirubin, Total (test code = 0.5 mg/dL 0.0-1.2 1975-2) Alkaline Phosphatase (test 103 IU/L 39-117 code = 6768-6) AST (SGOT) (test code = 20 IU/L 0-40 1920-8) ALT (SGPT) (test code = 30 IU/L 0-44 1742-6) [facility] Description: Lipid [id number] 03:19:00 Test Item Value Reference Range Interpretation Comments Cholesterol, Total (test code = 231 mg/dL 100-199 H 2092-3) Triglycerides (test code = 2571-8) 215 mg/dL 0-149 H HDL Cholesterol (test code = 34 mg/dL >39 L 2084-9) VLDL Cholesterol Renuka (test code = 43 mg/dL 5-40 H 85635-5) LDL Cholesterol Calc (test code = 154 mg/dL 0-99 H 01534-9) Comment: (test code = 34461-8) [facility] Description: Comp. Metabolic Panel (2019-11-10 03:19:00 Test Item Value Reference Range Interpretation Comments Glucose (test code = 2345-7) 439 mg/dL 65-99 H BUN (test code = 3094-0) 49 mg/dL 6-24 H Creatinine (test code = 2.17 mg/dL 0.76-1.27 H 2160-0) eGFR If NonAfricn Am (test 35 mL/min/1.73 >59 L code = 67658-6) eGFR If Africn Am (test code = 41 mL/min/1.73 >59 L 22060-7) BUN/Creatinine Ratio (test 23 9-20 H code = 3097-3) Sodium (test code = 2951-2) 137 mmol/L 134-144 Potassium (test code = 2823-3) 4.9 mmol/L 3.5-5.2 Chloride (test code = 2075-0) 93 mmol/L 96-106 L Carbon Dioxide, Total (test 29 mmol/L 20-29 code = 2028-9) Calcium (test code = 54399-1) 9.5 mg/dL 8.7-10.2 Protein, Total (test code = 6.5 g/dL 6.0-8.5 2885-2) Albumin (test code = 1751-7) 3.6 g/dL 4.0-5.0 L Globulin, Total (test code = 2.9 g/dL 1.5-4.5 95657-2) A/G Ratio (test code = 1759-0) 1.2 1.2-2.2 Bilirubin, Total (test code = 0.5 mg/dL 0.0-1.2 1975-2) Alkaline Phosphatase (test 103 IU/L 39-117 code = 6768-6) AST (SGOT) (test code = 20 IU/L 0-40 1920-8) ALT (SGPT) (test code = 30 IU/L 0-44 1742-6) [facility] Description: Lipid [id number] 03:19:00 Test Item Value Reference Range Interpretation Comments Cholesterol, Total (test code = 231 mg/dL 100-199 H 3-3) Triglycerides (test code = 2571-8) 215 mg/dL 0-149 H HDL Cholesterol (test code = 34 mg/dL >39 L 5-9) VLDL Cholesterol Renuka (test code = 43 mg/dL 5-40 H 49927-8) LDL Cholesterol Calc (test code = 154 mg/dL 0-99 H 96711-6) Comment: (test code = 98384-3) [facility] Description: Comp. Metabolic Panel (2019-11-10 03:19:00 Test Item Value Reference Range Interpretation Comments Glucose (test code = 2345-7) 439 mg/dL 65-99 H BUN (test code = 3094-0) 49 mg/dL 6-24 H Creatinine (test code = 2.17 mg/dL 0.76-1.27 H 2160-0) eGFR If NonAfricn Am (test 35 mL/min/1.73 >59 L code = 85125-1) eGFR If Africn Am (test code = 41 mL/min/1.73 >59 L 22959-4) BUN/Creatinine Ratio (test 23 9-20 H code = 3097-3) Sodium (test code = 2951-2) 137 mmol/L 134-144 Potassium (test code = 2823-3) 4.9 mmol/L 3.5-5.2 Chloride (test code = 2075-0) 93 mmol/L 96-106 L Carbon Dioxide, Total (test 29 mmol/L 20-29 code = 8-9) Calcium (test code = 09300-4) 9.5 mg/dL 8.7-10.2 Protein, Total (test code = 6.5 g/dL 6.0-8.5 2885-2) Albumin (test code = 1751-7) 3.6 g/dL 4.0-5.0 L Globulin, Total (test code = 2.9 g/dL 1.5-4.5 62317-7) A/G Ratio (test code = 1759-0) 1.2 1.2-2.2 Bilirubin, Total (test code = 0.5 mg/dL 0.0-1.2 1974-2) Alkaline Phosphatase (test 103 IU/L 39-117 code = 6768-6) AST (SGOT) (test code = 20 IU/L 0-40 1920-8) ALT (SGPT) (test code = 30 IU/L 0-44 1742-6) [facility]: Lipid [id number] 03:19:00 Test Item Value Reference Range Interpretation Comments Cholesterol, Total (test code = 231 mg/dL 100-199 H 2093-3) Triglycerides (test code = 2571-8) 215 mg/dL 0-149 H HDL Cholesterol (test code = 34 mg/dL >39 L 5-9) VLDL Cholesterol Renuka (test code = 43 mg/dL 5-40 H 36991-1) LDL Cholesterol Calc (test code = 154 mg/dL 0-99 H 84107-6) Comment: (test code = 43279-5) [facility] Description: Comp. Metabolic Panel (14)2019-11-10 03:19:00 Test Item Value Reference Range Interpretation Comments Glucose (test code = 2345-7) 439 mg/dL 65-99 H BUN (test code = 3094-0) 49 mg/dL 6-24 H Creatinine (test code = 2.17 mg/dL 0.76-1.27 H 2160-0) eGFR If NonAfricn Am (test 35 mL/min/1.73 >59 L code = 34688-6) eGFR If Africn Am (test code = 41 mL/min/1.73 >59 L 04825-2) BUN/Creatinine Ratio (test 23 9-20 H code = 3097-3) Sodium (test code = 2951-2) 137 mmol/L 134-144 Potassium (test code = 2823-3) 4.9 mmol/L 3.5-5.2 Chloride (test code = 2075-0) 93 mmol/L 96-106 L Carbon Dioxide, Total (test 29 mmol/L 20-29 code = 8-9) Calcium (test code = 50110-2) 9.5 mg/dL 8.7-10.2 Protein, Total (test code = 6.5 g/dL 6.0-8.5 2885-2) Albumin (test code = 1751-7) 3.6 g/dL 4.0-5.0 L Globulin, Total (test code = 2.9 g/dL 1.5-4.5 39311-4) A/G Ratio (test code = 1759-0) 1.2 1.2-2.2 Bilirubin, Total (test code = 0.5 mg/dL 0.0-1.2 1974-2) Alkaline Phosphatase (test 103 IU/L 39-117 code = 6768-6) AST (SGOT) (test code = 20 IU/L 0-40 1920-8) ALT (SGPT) (test code = 30 IU/L 0-44 1742-6) [facility] Lipid [id number] 03:19:00 Test Item Value Reference Range Interpretation Comments Cholesterol, Total (test code = 231 mg/dL 100-199 H 2092-3) Triglycerides (test code = 2571-8) 215 mg/dL 0-149 H HDL Cholesterol (test code = 34 mg/dL >39 L 9) VLDL Cholesterol Renuka (test code = 43 mg/dL 5-40 H 79058-1) LDL Cholesterol Calc (test code = 154 mg/dL 0-99 H 44981-3) Comment: (test code = 61916-1) [facility] (14)2019-11-10 03:19:00 Test Item Value Reference Range Interpretation Comments Glucose (test code = 2345-7) 439 mg/dL 65-99 H BUN (test code = 3094-0) 49 mg/dL 6-24 H Creatinine (test code = 2.17 mg/dL 0.76-1.27 H 2160-0) eGFR If NonAfricn Am (test 35 mL/min/1.73 >59 L code = 42239-8) eGFR If Africn Am (test code = 41 mL/min/1.73 >59 L 76835-6) BUN/Creatinine Ratio (test 23 9-20 H code = 3097-3) Sodium (test code = 2951-2) 137 mmol/L 134-144 Potassium (test code = 2823-3) 4.9 mmol/L 3.5-5.2 Chloride (test code = 2075-0) 93 mmol/L 96-106 L Carbon Dioxide, Total (test 29 mmol/L 20-29 code = 2027-9) Calcium (test code = 57017-0) 9.5 mg/dL 8.7-10.2 Protein, Total (test code = 6.5 g/dL 6.0-8.5 2885-2) Albumin (test code = 1751-7) 3.6 g/dL 4.0-5.0 L Globulin, Total (test code = 2.9 g/dL 1.5-4.5 20566-4) A/G Ratio (test code = 1759-0) 1.2 1.2-2.2 Bilirubin, Total (test code = 0.5 mg/dL 0.0-1.2 1975-2) Alkaline Phosphatase (test 103 IU/L 39-117 code = 6768-6) AST (SGOT) (test code = 20 IU/L 0-40 1920-8) ALT (SGPT) (test code = 30 IU/L 0-44 1742-6) [facility] Description: Lipid [id number] 03:19:00 Test Item Value Reference Range Interpretation Comments Cholesterol, Total (test code = 231 mg/dL 100-199 H 3-3) Triglycerides (test code = 2571-8) 215 mg/dL 0-149 H HDL Cholesterol (test code = 34 mg/dL >39 L 2084-9) VLDL Cholesterol Renuka (test code = 43 mg/dL 5-40 H 57784-6) LDL Cholesterol Calc (test code = 154 mg/dL 0-99 H 06357-6) Comment: (test code = 90330-1) [facility] Description: Comp. Metabolic Panel (14)2019-11-10 03:19:00 Test Item Value Reference Range Interpretation Comments Glucose (test code = 2345-7) 439 mg/dL 65-99 H BUN (test code = 3094-0) 49 mg/dL 6-24 H Creatinine (test code = 2.17 mg/dL 0.76-1.27 H 2160-0) eGFR If NonAfricn Am (test 35 mL/min/1.73 >59 L code = 45771-0) eGFR If Africn Am (test code = 41 mL/min/1.73 >59 L 78052-5) BUN/Creatinine Ratio (test 23 9-20 H code = 3097-3) Sodium (test code = 2951-2) 137 mmol/L 134-144 Potassium (test code = 2823-3) 4.9 mmol/L 3.5-5.2 Chloride (test code = 2075-0) 93 mmol/L 96-106 L Carbon Dioxide, Total (test 29 mmol/L 20-29 code = 8-9) Calcium (test code = 55145-9) 9.5 mg/dL 8.7-10.2 Protein, Total (test code = 6.5 g/dL 6.0-8.5 2885-2) Albumin (test code = 1751-7) 3.6 g/dL 4.0-5.0 L Globulin, Total (test code = 2.9 g/dL 1.5-4.5 70765-4) A/G Ratio (test code = 1759-0) 1.2 1.2-2.2 Bilirubin, Total (test code = 0.5 mg/dL 0.0-1.2 1974-2) Alkaline Phosphatase (test 103 IU/L 39-117 code = 6768-6) AST (SGOT) (test code = 20 IU/L 0-40 1920-8) ALT (SGPT) (test code = 30 IU/L 0-44 1742-6) [facility] Description: Lipid [id number] 03:19:00 Test Item Value Reference Range Interpretation Comments Cholesterol, Total (test code = 231 mg/dL 100-199 H 3-3) Triglycerides (test code = 2571-8) 215 mg/dL 0-149 H HDL Cholesterol (test code = 34 mg/dL >39 L 2084-9) VLDL Cholesterol Renuka (test code = 43 mg/dL 5-40 H 48672-5) LDL Cholesterol Calc (test code = 154 mg/dL 0-99 H 15742-9) Comment: (test code = 95909-2) [facility] Description: Comp. Metabolic Panel ()2019-11-10 03:19:00 Test Item Value Reference Range Interpretation Comments Glucose (test code = 2345-7) 439 mg/dL 65-99 H BUN (test code = 3094-0) 49 mg/dL 6-24 H Creatinine (test code = 2.17 mg/dL 0.76-1.27 H 2160-0) eGFR If NonAfricn Am (test 35 mL/min/1.73 >59 L code = 78331-6) eGFR If Africn Am (test code = 41 mL/min/1.73 >59 L 85064-6) BUN/Creatinine Ratio (test 23 9-20 H code = 3097-3) Sodium (test code = 2951-2) 137 mmol/L 134-144 Potassium (test code = 2823-3) 4.9 mmol/L 3.5-5.2 Chloride (test code = 2075-0) 93 mmol/L 96-106 L Carbon Dioxide, Total (test 29 mmol/L 20-29 code = 2028-9) Calcium (test code = 92665-9) 9.5 mg/dL 8.7-10.2 Protein, Total (test code = 6.5 g/dL 6.0-8.5 2885-2) Albumin (test code = 1751-7) 3.6 g/dL 4.0-5.0 L Globulin, Total (test code = 2.9 g/dL 1.5-4.5 13752-6) A/G Ratio (test code = 1759-0) 1.2 1.2-2.2 Bilirubin, Total (test code = 0.5 mg/dL 0.0-1.2 1975-2) Alkaline Phosphatase (test 103 IU/L 39-117 code = 6768-6) AST (SGOT) (test code = 20 IU/L 0-40 1920-8) ALT (SGPT) (test code = 30 IU/L 0-44 1742-6) [facility] Description: Lipid [id number] 03:19:00 Test Item Value Reference Range Interpretation Comments Cholesterol, Total (test code = 231 mg/dL 100-199 H 3-3) Triglycerides (test code = 2571-8) 215 mg/dL 0-149 H HDL Cholesterol (test code = 34 mg/dL >39 L 2084-9) VLDL Cholesterol Renuka (test code = 43 mg/dL 5-40 H 96441-6) LDL Cholesterol Calc (test code = 154 mg/dL 0-99 H 89482-5) Comment: (test code = 76126-6) [facility] Description: Comp. Metabolic Panel (14)2019-11-10 03:19:00 Test Item Value Reference Range Interpretation Comments Glucose (test code = 2345-7) 439 mg/dL 65-99 H BUN (test code = 3094-0) 49 mg/dL 6-24 H Creatinine (test code = 2.17 mg/dL 0.76-1.27 H 2160-0) eGFR If NonAfricn Am (test 35 mL/min/1.73 >59 L code = 60358-6) eGFR If Africn Am (test code = 41 mL/min/1.73 >59 L 03757-6) BUN/Creatinine Ratio (test 23 9-20 H code = 3097-3) Sodium (test code = 2951-2) 137 mmol/L 134-144 Potassium (test code = 2823-3) 4.9 mmol/L 3.5-5.2 Chloride (test code = 2075-0) 93 mmol/L 96-106 L Carbon Dioxide, Total (test 29 mmol/L 20-29 code = 8-9) Calcium (test code = 42952-1) 9.5 mg/dL 8.7-10.2 Protein, Total (test code = 6.5 g/dL 6.0-8.5 2885-2) Albumin (test code = 1751-7) 3.6 g/dL 4.0-5.0 L Globulin, Total (test code = 2.9 g/dL 1.5-4.5 68665-3) A/G Ratio (test code = 1759-0) 1.2 1.2-2.2 Bilirubin, Total (test code = 0.5 mg/dL 0.0-1.2 1975-2) Alkaline Phosphatase (test 103 IU/L 39-117 code = 6768-6) AST (SGOT) (test code = 20 IU/L 0-40 1920-8) ALT (SGPT) (test code = 30 IU/L 0-44 1742-6) [facility] Description: Lipid [id number] 03:19:00 Test Item Value Reference Range Interpretation Comments Cholesterol, Total (test code = 231 mg/dL 100-199 H 3-3) Triglycerides (test code = 2571-8) 215 mg/dL 0-149 H HDL Cholesterol (test code = 34 mg/dL >39 L 2084-9) VLDL Cholesterol Renuka (test code = 43 mg/dL 5-40 H 18659-0) LDL Cholesterol Calc (test code = 154 mg/dL 0-99 H 26738-4) Comment: (test code = 81478-0) [facility] Description: Comp. Metabolic Panel ()2019-11-10 03:19:00 Test Item Value Reference Range Interpretation Comments Glucose (test code = 2345-7) 439 mg/dL 65-99 H BUN (test code = 3094-0) 49 mg/dL 6-24 H Creatinine (test code = 2.17 mg/dL 0.76-1.27 H 2160-0) eGFR If NonAfricn Am (test 35 mL/min/1.73 >59 L code = 25558-9) eGFR If Africn Am (test code = 41 mL/min/1.73 >59 L 37187-7) BUN/Creatinine Ratio (test 23 9-20 H code = 3097-3) Sodium (test code = 2951-2) 137 mmol/L 134-144 Potassium (test code = 2823-3) 4.9 mmol/L 3.5-5.2 Chloride (test code = 2075-0) 93 mmol/L 96-106 L Carbon Dioxide, Total (test 29 mmol/L 20-29 code = 2027-9) Calcium (test code = 25450-3) 9.5 mg/dL 8.7-10.2 Protein, Total (test code = 6.5 g/dL 6.0-8.5 2885-2) Albumin (test code = 1751-7) 3.6 g/dL 4.0-5.0 L Globulin, Total (test code = 2.9 g/dL 1.5-4.5 61233-3) A/G Ratio (test code = 1759-0) 1.2 1.2-2.2 Bilirubin, Total (test code = 0.5 mg/dL 0.0-1.2 1974-2) Alkaline Phosphatase (test 103 IU/L 39-117 code = 6768-6) AST (SGOT) (test code = 20 IU/L 0-40 0-8) ALT (SGPT) (test code = 30 IU/L 0-44 1742-6) [facility] Description: Lipid [id number] 03:19:00 Test Item Value Reference Range Interpretation Comments Cholesterol, Total (test code = 231 mg/dL 100-199 H 3-3) Triglycerides (test code = 2571-8) 215 mg/dL 0-149 H HDL Cholesterol (test code = 34 mg/dL >39 L 5-9) VLDL Cholesterol Renuka (test code = 43 mg/dL 5-40 H 25882-5) LDL Cholesterol Calc (test code = 154 mg/dL 0-99 H 75686-6) Comment: (test code = 60730-6) [facility] Description: Comp. Metabolic Panel (14)2019-11-10 03:19:00 Test Item Value Reference Range Interpretation Comments Glucose (test code = 2345-7) 439 mg/dL 65-99 H BUN (test code = 3094-0) 49 mg/dL 6-24 H Creatinine (test code = 2.17 mg/dL 0.76-1.27 H 2160-0) eGFR If NonAfricn Am (test 35 mL/min/1.73 >59 L code = 12438-0) eGFR If Africn Am (test code = 41 mL/min/1.73 >59 L 57516-8) BUN/Creatinine Ratio (test 23 9-20 H code = 3097-3) Sodium (test code = 2951-2) 137 mmol/L 134-144 Potassium (test code = 2823-3) 4.9 mmol/L 3.5-5.2 Chloride (test code = 2075-0) 93 mmol/L 96-106 L Carbon Dioxide, Total (test 29 mmol/L 20-29 code = 2027-9) Calcium (test code = 94200-8) 9.5 mg/dL 8.7-10.2 Protein, Total (test code = 6.5 g/dL 6.0-8.5 2885-2) Albumin (test code = 1751-7) 3.6 g/dL 4.0-5.0 L Globulin, Total (test code = 2.9 g/dL 1.5-4.5 29277-7) A/G Ratio (test code = 1759-0) 1.2 1.2-2.2 Bilirubin, Total (test code = 0.5 mg/dL 0.0-1.2 1974-2) Alkaline Phosphatase (test 103 IU/L 39-117 code = 6768-6) AST (SGOT) (test code = 20 IU/L 0-40 1920-8) ALT (SGPT) (test code = 30 IU/L 0-44 1742-6) [facility] Description: Lipid [id number] 03:19:00 Test Item Value Reference Range Interpretation Comments Cholesterol, Total (test code = 231 mg/dL 100-199 H 3-3) Triglycerides (test code = 2571-8) 215 mg/dL 0-149 H HDL Cholesterol (test code = 34 mg/dL >39 L 2084-9) VLDL Cholesterol Renuka (test code = 43 mg/dL 5-40 H 79797-8) LDL Cholesterol Calc (test code = 154 mg/dL 0-99 H 61640-8) Comment: (test code = 74584-6) [facility]: Comp. Metabolic Panel ()2019-11-10 03:19:00 Test Item Value Reference Range Interpretation Comments Glucose (test code = 2345-7) 439 mg/dL 65-99 H BUN (test code = 3094-0) 49 mg/dL 6-24 H Creatinine (test code = 2.17 mg/dL 0.76-1.27 H 2160-0) eGFR If NonAfricn Am (test 35 mL/min/1.73 >59 L code = 65153-2) eGFR If Africn Am (test code = 41 mL/min/1.73 >59 L 77237-2) BUN/Creatinine Ratio (test 23 9-20 H code = 3097-3) Sodium (test code = 2951-2) 137 mmol/L 134-144 Potassium (test code = 2823-3) 4.9 mmol/L 3.5-5.2 Chloride (test code = 2075-0) 93 mmol/L 96-106 L Carbon Dioxide, Total (test 29 mmol/L 20-29 code = 8-9) Calcium (test code = 97228-2) 9.5 mg/dL 8.7-10.2 Protein, Total (test code = 6.5 g/dL 6.0-8.5 2885-2) Albumin (test code = 1751-7) 3.6 g/dL 4.0-5.0 L Globulin, Total (test code = 2.9 g/dL 1.5-4.5 58735-5) A/G Ratio (test code = 1759-0) 1.2 1.2-2.2 Bilirubin, Total (test code = 0.5 mg/dL 0.0-1.2 1975-2) Alkaline Phosphatase (test 103 IU/L 39-117 code = 6768-6) AST (SGOT) (test code = 20 IU/L 0-40 1920-8) ALT (SGPT) (test code = 30 IU/L 0-44 1742-6) [facility] Description: Lipid [id number] 03:19:00 Test Item Value Reference Range Interpretation Comments Cholesterol, Total (test code = 231 mg/dL 100-199 H 2093-3) Triglycerides (test code = 2571-8) 215 mg/dL 0-149 H HDL Cholesterol (test code = 34 mg/dL >39 L 5-9) VLDL Cholesterol Renuka (test code = 43 mg/dL 5-40 H 46104-2) LDL Cholesterol Calc (test code = 154 mg/dL 0-99 H 31040-7) Comment: (test code = 61530-1) [facility] Description: Comp. Metabolic Panel ()2019-11-10 03:19:00 Test Item Value Reference Range Interpretation Comments Glucose (test code = 2345-7) 439 mg/dL 65-99 H BUN (test code = 3094-0) 49 mg/dL 6-24 H Creatinine (test code = 2.17 mg/dL 0.76-1.27 H 2160-0) eGFR If NonAfricn Am (test 35 mL/min/1.73 >59 L code = 17162-6) eGFR If Africn Am (test code = 41 mL/min/1.73 >59 L 99242-7) BUN/Creatinine Ratio (test 23 9-20 H code = 3097-3) Sodium (test code = 2951-2) 137 mmol/L 134-144 Potassium (test code = 2823-3) 4.9 mmol/L 3.5-5.2 Chloride (test code = 2075-0) 93 mmol/L 96-106 L Carbon Dioxide, Total (test 29 mmol/L 20-29 code = 8-9) Calcium (test code = 75984-5) 9.5 mg/dL 8.7-10.2 Protein, Total (test code = 6.5 g/dL 6.0-8.5 2885-2) Albumin (test code = 1751-7) 3.6 g/dL 4.0-5.0 L Globulin, Total (test code = 2.9 g/dL 1.5-4.5 35840-2) A/G Ratio (test code = 1759-0) 1.2 1.2-2.2 Bilirubin, Total (test code = 0.5 mg/dL 0.0-1.2 1975-2) Alkaline Phosphatase (test 103 IU/L 39-117 code = 6768-6) AST (SGOT) (test code = 20 IU/L 0-40 1920-8) ALT (SGPT) (test code = 30 IU/L 0-44 1742-6) [facility] Description: Lipid [id number] 03:19:00 Test Item Value Reference Range Interpretation Comments Cholesterol, Total (test code = 231 mg/dL 100-199 H 2092-3) Triglycerides (test code = 2571-8) 215 mg/dL 0-149 H HDL Cholesterol (test code = 34 mg/dL >39 L 2084-9) VLDL Cholesterol Renuka (test code = 43 mg/dL 5-40 H 22834-5) LDL Cholesterol Calc (test code = 154 mg/dL 0-99 H 02814-6) Comment: (test code = 01286-1) [facility] Description: Comp. Metabolic Panel (14)2019-11-10 03:19:00 Test Item Value Reference Range Interpretation Comments Glucose (test code = 2345-7) 439 mg/dL 65-99 H BUN (test code = 3094-0) 49 mg/dL 6-24 H Creatinine (test code = 2.17 mg/dL 0.76-1.27 H 2160-0) eGFR If NonAfricn Am (test 35 mL/min/1.73 >59 L code = 19033-2) eGFR If Africn Am (test code = 41 mL/min/1.73 >59 L 34118-7) BUN/Creatinine Ratio (test 23 9-20 H code = 3097-3) Sodium (test code = 2951-2) 137 mmol/L 134-144 Potassium (test code = 2823-3) 4.9 mmol/L 3.5-5.2 Chloride (test code = 2075-0) 93 mmol/L 96-106 L Carbon Dioxide, Total (test 29 mmol/L 20-29 code = 8-9) Calcium (test code = 71287-7) 9.5 mg/dL 8.7-10.2 Protein, Total (test code = 6.5 g/dL 6.0-8.5 2885-2) Albumin (test code = 1751-7) 3.6 g/dL 4.0-5.0 L Globulin, Total (test code = 2.9 g/dL 1.5-4.5 43234-8) A/G Ratio (test code = 1759-0) 1.2 1.2-2.2 Bilirubin, Total (test code = 0.5 mg/dL 0.0-1.2 1975-2) Alkaline Phosphatase (test 103 IU/L 39-117 code = 6768-6) AST (SGOT) (test code = 20 IU/L 0-40 1920-8) ALT (SGPT) (test code = 30 IU/L 0-44 1742-6) [facility] Description: Lipid [id number] 03:19:00 Test Item Value Reference Range Interpretation Comments Cholesterol, Total (test code = 231 mg/dL 100-199 H 3-3) Triglycerides (test code = 2571-8) 215 mg/dL 0-149 H HDL Cholesterol (test code = 34 mg/dL >39 L 5-9) VLDL Cholesterol Renuka (test code = 43 mg/dL 5-40 H 34794-9) LDL Cholesterol Calc (test code = 154 mg/dL 0-99 H 67712-6) Comment: (test code = 96625-0) [facility] Description: Comp. Metabolic Panel (2019-11-10 03:19:00 Test Item Value Reference Range Interpretation Comments Glucose (test code = 2345-7) 439 mg/dL 65-99 H BUN (test code = 3094-0) 49 mg/dL 6-24 H Creatinine (test code = 2.17 mg/dL 0.76-1.27 H 2160-0) eGFR If NonAfricn Am (test 35 mL/min/1.73 >59 L code = 93203-3) eGFR If Africn Am (test code = 41 mL/min/1.73 >59 L 88615-2) BUN/Creatinine Ratio (test 23 9-20 H code = 3097-3) Sodium (test code = 2951-2) 137 mmol/L 134-144 Potassium (test code = 2823-3) 4.9 mmol/L 3.5-5.2 Chloride (test code = 2075-0) 93 mmol/L 96-106 L Carbon Dioxide, Total (test 29 mmol/L 20-29 code = 8-9) Calcium (test code = 05466-3) 9.5 mg/dL 8.7-10.2 Protein, Total (test code = 6.5 g/dL 6.0-8.5 2885-2) Albumin (test code = 1751-7) 3.6 g/dL 4.0-5.0 L Globulin, Total (test code = 2.9 g/dL 1.5-4.5 98463-7) A/G Ratio (test code = 1759-0) 1.2 1.2-2.2 Bilirubin, Total (test code = 0.5 mg/dL 0.0-1.2 1975-2) Alkaline Phosphatase (test 103 IU/L 39-117 code = 6768-6) AST (SGOT) (test code = 20 IU/L 0-40 1920-8) ALT (SGPT) (test code = 30 IU/L 0-44 1742-6) [facility] Description: Lipid [id number] 03:19:00 Test Item Value Reference Range Interpretation Comments Cholesterol, Total (test code = 231 mg/dL 100-199 H 2092-3) Triglycerides (test code = 2571-8) 215 mg/dL 0-149 H HDL Cholesterol (test code = 34 mg/dL >39 L 2084-9) VLDL Cholesterol Renuka (test code = 43 mg/dL 5-40 H 66593-8) LDL Cholesterol Calc (test code = 154 mg/dL 0-99 H 61128-3) Comment: (test code = 32053-2) [facility] Description: Comp. Metabolic Panel ()2019-11-10 03:19:00 Test Item Value Reference Range Interpretation Comments Glucose (test code = 2345-7) 439 mg/dL 65-99 H BUN (test code = 3094-0) 49 mg/dL 6-24 H Creatinine (test code = 2.17 mg/dL 0.76-1.27 H 2160-0) eGFR If NonAfricn Am (test 35 mL/min/1.73 >59 L code = 69985-3) eGFR If Africn Am (test code = 41 mL/min/1.73 >59 L 73904-6) BUN/Creatinine Ratio (test 23 9-20 H code = 3097-3) Sodium (test code = 2951-2) 137 mmol/L 134-144 Potassium (test code = 2823-3) 4.9 mmol/L 3.5-5.2 Chloride (test code = 2075-0) 93 mmol/L 96-106 L Carbon Dioxide, Total (test 29 mmol/L 20-29 code = 2028-9) Calcium (test code = 75989-0) 9.5 mg/dL 8.7-10.2 Protein, Total (test code = 6.5 g/dL 6.0-8.5 2885-2) Albumin (test code = 1751-7) 3.6 g/dL 4.0-5.0 L Globulin, Total (test code = 2.9 g/dL 1.5-4.5 39787-6) A/G Ratio (test code = 1759-0) 1.2 1.2-2.2 Bilirubin, Total (test code = 0.5 mg/dL 0.0-1.2 1975-2) Alkaline Phosphatase (test 103 IU/L 39-117 code = 6768-6) AST (SGOT) (test code = 20 IU/L 0-40 1920-8) ALT (SGPT) (test code = 30 IU/L 0-44 1742-6) [facility] Description: Comp. Metabolic Panel ()2019-11-10 03:19:00 Test Item Value Reference Range Interpretation Comments Glucose (test code = 2345-7) 439 mg/dL 65-99 H BUN (test code = 3094-0) 49 mg/dL 6-24 H Creatinine (test code = 2.17 mg/dL 0.76-1.27 H 2160-0) eGFR If NonAfricn Am (test 35 mL/min/1.73 >59 L code = 54873-7) eGFR If Africn Am (test code = 41 mL/min/1.73 >59 L 98166-6) BUN/Creatinine Ratio (test 23 9-20 H code = 3097-3) Sodium (test code = 2951-2) 137 mmol/L 134-144 Potassium (test code = 2823-3) 4.9 mmol/L 3.5-5.2 Chloride (test code = 2075-0) 93 mmol/L 96-106 L Carbon Dioxide, Total (test 29 mmol/L 20-29 code = 8-9) Calcium (test code = 86527-8) 9.5 mg/dL 8.7-10.2 Protein, Total (test code = 6.5 g/dL 6.0-8.5 2885-2) Albumin (test code = 1751-7) 3.6 g/dL 4.0-5.0 L Globulin, Total (test code = 2.9 g/dL 1.5-4.5 94715-4) A/G Ratio (test code = 1759-0) 1.2 1.2-2.2 Bilirubin, Total (test code = 0.5 mg/dL 0.0-1.2 1974-2) Alkaline Phosphatase (test 103 IU/L 39-117 code = 6768-6) AST (SGOT) (test code = 20 IU/L 0-40 1920-8) ALT (SGPT) (test code = 30 IU/L 0-44 1742-6) [facility]: Lipid [id number] 03:19:00 Test Item Value Reference Range Interpretation Comments Cholesterol, Total (test code = 231 mg/dL 100-199 H 2092-3) Triglycerides (test code = 2571-8) 215 mg/dL 0-149 H HDL Cholesterol (test code = 34 mg/dL >39 L 2084-9) VLDL Cholesterol Renuka (test code = 43 mg/dL 5-40 H 49774-2) LDL Cholesterol Calc (test code = 154 mg/dL 0-99 H 58083-1) Comment: (test code = 42460-6) [facility] Description: Lipid [id number] 03:19:00 Test Item Value Reference Range Interpretation Comments Cholesterol, Total (test code = 231 mg/dL 100-199 H 3-3) Triglycerides (test code = 2571-8) 215 mg/dL 0-149 H HDL Cholesterol (test code = 34 mg/dL >39 L 2084-9) VLDL Cholesterol Renuka (test code = 43 mg/dL 5-40 H 62479-9) LDL Cholesterol Calc (test code = 154 mg/dL 0-99 H 53846-4) Comment: (test code = 28770-2) [facility] Description: Comp. Metabolic Panel (14)2019-11-10 03:19:00 Test Item Value Reference Range Interpretation Comments Glucose (test code = 2345-7) 439 mg/dL 65-99 H BUN (test code = 3094-0) 49 mg/dL 6-24 H Creatinine (test code = 2.17 mg/dL 0.76-1.27 H 2160-0) eGFR If NonAfricn Am (test 35 mL/min/1.73 >59 L code = 33609-1) eGFR If Africn Am (test code = 41 mL/min/1.73 >59 L 37539-7) BUN/Creatinine Ratio (test 23 9-20 H code = 3097-3) Sodium (test code = 2951-2) 137 mmol/L 134-144 Potassium (test code = 2823-3) 4.9 mmol/L 3.5-5.2 Chloride (test code = 2075-0) 93 mmol/L 96-106 L Carbon Dioxide, Total (test 29 mmol/L 20-29 code = 2027-9) Calcium (test code = 37680-0) 9.5 mg/dL 8.7-10.2 Protein, Total (test code = 6.5 g/dL 6.0-8.5 2885-2) Albumin (test code = 1751-7) 3.6 g/dL 4.0-5.0 L Globulin, Total (test code = 2.9 g/dL 1.5-4.5 91001-1) A/G Ratio (test code = 1759-0) 1.2 1.2-2.2 Bilirubin, Total (test code = 0.5 mg/dL 0.0-1.2 1974-2) Alkaline Phosphatase (test 103 IU/L 39-117 code = 6768-6) AST (SGOT) (test code = 20 IU/L 0-40 1920-8) ALT (SGPT) (test code = 30 IU/L 0-44 1742-6) [facility]: Lipid [id number] 03:19:00 Test Item Value Reference Range Interpretation Comments Cholesterol, Total (test code = 231 mg/dL 100-199 H 2092-3) Triglycerides (test code = 2571-8) 215 mg/dL 0-149 H HDL Cholesterol (test code = 34 mg/dL >39 L 2084-9) VLDL Cholesterol Renuka (test code = 43 mg/dL 5-40 H 72141-8) LDL Cholesterol Calc (test code = 154 mg/dL 0-99 H 36658-9) Comment: (test code = 15907-7) [facility]: Comp. Metabolic [facility] (14)2019-11-10 03:19:00 Test Item Value Reference Range Interpretation Comments Glucose (test code = 2345-7) 439 mg/dL 65-99 H BUN (test code = 3094-0) 49 mg/dL 6-24 H Creatinine (test code = 2.17 mg/dL 0.76-1.27 H 2160-0) eGFR If NonAfricn Am (test 35 mL/min/1.73 >59 L code = 48651-1) eGFR If Africn Am (test code = 41 mL/min/1.73 >59 L 48021-3) BUN/Creatinine Ratio (test 23 9-20 H code = 3097-3) Sodium (test code = 2951-2) 137 mmol/L 134-144 Potassium (test code = 2823-3) 4.9 mmol/L 3.5-5.2 Chloride (test code = 2075-0) 93 mmol/L 96-106 L Carbon Dioxide, Total (test 29 mmol/L 20-29 code = 2028-9) Calcium (test code = 83468-3) 9.5 mg/dL 8.7-10.2 Protein, Total (test code = 6.5 g/dL 6.0-8.5 2885-2) Albumin (test code = 1751-7) 3.6 g/dL 4.0-5.0 L Globulin, Total (test code = 2.9 g/dL 1.5-4.5 68812-8) A/G Ratio (test code = 1759-0) 1.2 1.2-2.2 Bilirubin, Total (test code = 0.5 mg/dL 0.0-1.2 1975-2) Alkaline Phosphatase (test 103 IU/L 39-117 code = 6768-6) AST (SGOT) (test code = 20 IU/L 0-40 1920-8) ALT (SGPT) (test code = 30 IU/L 0-44 1742-6) [facility] Description: Lipid [id number] 03:19:00 Test Item Value Reference Range Interpretation Comments Cholesterol, Total (test code = 231 mg/dL 100-199 H 3-3) Triglycerides (test code = 2571-8) 215 mg/dL 0-149 H HDL Cholesterol (test code = 34 mg/dL >39 L 2084-9) VLDL Cholesterol Renuka (test code = 43 mg/dL 5-40 H 93840-5) LDL Cholesterol Calc (test code = 154 mg/dL 0-99 H 21849-0) Comment: (test code = 50680-9) [facility] Description: Comp. Metabolic Panel (14)2019-11-10 03:19:00 Test Item Value Reference Range Interpretation Comments Glucose (test code = 2345-7) 439 mg/dL 65-99 H BUN (test code = 3094-0) 49 mg/dL 6-24 H Creatinine (test code = 2.17 mg/dL 0.76-1.27 H 2160-0) eGFR If NonAfricn Am (test 35 mL/min/1.73 >59 L code = 67875-7) eGFR If Africn Am (test code = 41 mL/min/1.73 >59 L 50406-5) BUN/Creatinine Ratio (test 23 9-20 H code = 3097-3) Sodium (test code = 2951-2) 137 mmol/L 134-144 Potassium (test code = 2823-3) 4.9 mmol/L 3.5-5.2 Chloride (test code = 2075-0) 93 mmol/L 96-106 L Carbon Dioxide, Total (test 29 mmol/L 20-29 code = 8-9) Calcium (test code = 24251-0) 9.5 mg/dL 8.7-10.2 Protein, Total (test code = 6.5 g/dL 6.0-8.5 2885-2) Albumin (test code = 1751-7) 3.6 g/dL 4.0-5.0 L Globulin, Total (test code = 2.9 g/dL 1.5-4.5 13197-1) A/G Ratio (test code = 1759-0) 1.2 1.2-2.2 Bilirubin, Total (test code = 0.5 mg/dL 0.0-1.2 1974-2) Alkaline Phosphatase (test 103 IU/L 39-117 code = 6768-6) AST (SGOT) (test code = 20 IU/L 0-40 1920-8) ALT (SGPT) (test code = 30 IU/L 0-44 1742-6) [facility] Description: Lipid [id number] 03:19:00 Test Item Value Reference Range Interpretation Comments Cholesterol, Total (test code = 231 mg/dL 100-199 H 3-3) Triglycerides (test code = 2571-8) 215 mg/dL 0-149 H HDL Cholesterol (test code = 34 mg/dL >39 L 2084-9) VLDL Cholesterol Renuka (test code = 43 mg/dL 5-40 H 15864-5) LDL Cholesterol Calc (test code = 154 mg/dL 0-99 H 64840-2) Comment: (test code = 74934-9) [facility] Description: Comp. Metabolic Panel ()2019-11-10 03:19:00 Test Item Value Reference Range Interpretation Comments Glucose (test code = 2345-7) 439 mg/dL 65-99 H BUN (test code = 3094-0) 49 mg/dL 6-24 H Creatinine (test code = 2.17 mg/dL 0.76-1.27 H 2160-0) eGFR If NonAfricn Am (test 35 mL/min/1.73 >59 L code = 29189-7) eGFR If Africn Am (test code = 41 mL/min/1.73 >59 L 99566-1) BUN/Creatinine Ratio (test 23 9-20 H code = 3097-3) Sodium (test code = 2951-2) 137 mmol/L 134-144 Potassium (test code = 2823-3) 4.9 mmol/L 3.5-5.2 Chloride (test code = 2075-0) 93 mmol/L 96-106 L Carbon Dioxide, Total (test 29 mmol/L 20-29 code = 2028-9) Calcium (test code = 55155-3) 9.5 mg/dL 8.7-10.2 Protein, Total (test code = 6.5 g/dL 6.0-8.5 2885-2) Albumin (test code = 1751-7) 3.6 g/dL 4.0-5.0 L Globulin, Total (test code = 2.9 g/dL 1.5-4.5 53318-9) A/G Ratio (test code = 1759-0) 1.2 1.2-2.2 Bilirubin, Total (test code = 0.5 mg/dL 0.0-1.2 1975-2) Alkaline Phosphatase (test 103 IU/L 39-117 code = 6768-6) AST (SGOT) (test code = 20 IU/L 0-40 1920-8) ALT (SGPT) (test code = 30 IU/L 0-44 1742-6) [facility] Description: Lipid [id number] 03:19:00 Test Item Value Reference Range Interpretation Comments Cholesterol, Total (test code = 231 mg/dL 100-199 H 3-3) Triglycerides (test code = 2571-8) 215 mg/dL 0-149 H HDL Cholesterol (test code = 34 mg/dL >39 L 2084-9) VLDL Cholesterol Renuka (test code = 43 mg/dL 5-40 H 83685-6) LDL Cholesterol Calc (test code = 154 mg/dL 0-99 H 08272-3) Comment: (test code = 90054-7) [facility] Description: Comp. Metabolic Panel (14)2019-11-10 03:19:00 Test Item Value Reference Range Interpretation Comments Glucose (test code = 2345-7) 439 mg/dL 65-99 H BUN (test code = 3094-0) 49 mg/dL 6-24 H Creatinine (test code = 2.17 mg/dL 0.76-1.27 H 2160-0) eGFR If NonAfricn Am (test 35 mL/min/1.73 >59 L code = 93424-3) eGFR If Africn Am (test code = 41 mL/min/1.73 >59 L 19135-1) BUN/Creatinine Ratio (test 23 9-20 H code = 3097-3) Sodium (test code = 2951-2) 137 mmol/L 134-144 Potassium (test code = 2823-3) 4.9 mmol/L 3.5-5.2 Chloride (test code = 2075-0) 93 mmol/L 96-106 L Carbon Dioxide, Total (test 29 mmol/L 20-29 code = 8-9) Calcium (test code = 74745-3) 9.5 mg/dL 8.7-10.2 Protein, Total (test code = 6.5 g/dL 6.0-8.5 2885-2) Albumin (test code = 1751-7) 3.6 g/dL 4.0-5.0 L Globulin, Total (test code = 2.9 g/dL 1.5-4.5 12636-7) A/G Ratio (test code = 1759-0) 1.2 1.2-2.2 Bilirubin, Total (test code = 0.5 mg/dL 0.0-1.2 1975-2) Alkaline Phosphatase (test 103 IU/L 39-117 code = 6768-6) AST (SGOT) (test code = 20 IU/L 0-40 1920-8) ALT (SGPT) (test code = 30 IU/L 0-44 1742-6) [facility] Description: Lipid [id number] 03:19:00 Test Item Value Reference Range Interpretation Comments Cholesterol, Total (test code = 231 mg/dL 100-199 H 3-3) Triglycerides (test code = 2571-8) 215 mg/dL 0-149 H HDL Cholesterol (test code = 34 mg/dL >39 L 2084-9) VLDL Cholesterol Renuka (test code = 43 mg/dL 5-40 H 22905-4) LDL Cholesterol Calc (test code = 154 mg/dL 0-99 H 94633-1) Comment: (test code = 51643-4) [facility] Description: Comp. Metabolic Panel ()2019-11-10 03:19:00 Test Item Value Reference Range Interpretation Comments Glucose (test code = 2345-7) 439 mg/dL 65-99 H BUN (test code = 3094-0) 49 mg/dL 6-24 H Creatinine (test code = 2.17 mg/dL 0.76-1.27 H 2160-0) eGFR If NonAfricn Am (test 35 mL/min/1.73 >59 L code = 54868-7) eGFR If Africn Am (test code = 41 mL/min/1.73 >59 L 29105-1) BUN/Creatinine Ratio (test 23 9-20 H code = 3097-3) Sodium (test code = 2951-2) 137 mmol/L 134-144 Potassium (test code = 2823-3) 4.9 mmol/L 3.5-5.2 Chloride (test code = 2075-0) 93 mmol/L 96-106 L Carbon Dioxide, Total (test 29 mmol/L 20-29 code = 2027-9) Calcium (test code = 73313-9) 9.5 mg/dL 8.7-10.2 Protein, Total (test code = 6.5 g/dL 6.0-8.5 2885-2) Albumin (test code = 1751-7) 3.6 g/dL 4.0-5.0 L Globulin, Total (test code = 2.9 g/dL 1.5-4.5 32191-1) A/G Ratio (test code = 1759-0) 1.2 1.2-2.2 Bilirubin, Total (test code = 0.5 mg/dL 0.0-1.2 1974-2) Alkaline Phosphatase (test 103 IU/L 39-117 code = 6768-6) AST (SGOT) (test code = 20 IU/L 0-40 0-8) ALT (SGPT) (test code = 30 IU/L 0-44 1742-6) [facility] Description: Lipid [id number] 03:19:00 Test Item Value Reference Range Interpretation Comments Cholesterol, Total (test code = 231 mg/dL 100-199 H 2093-3) Triglycerides (test code = 2571-8) 215 mg/dL 0-149 H HDL Cholesterol (test code = 34 mg/dL >39 L 2085-9) VLDL Cholesterol Renuka (test code = 43 mg/dL 5-40 H 86048-8) LDL Cholesterol Calc (test code = 154 mg/dL 0-99 H 54168-3) Comment: (test code = 46659-6) [facility], CHEST, 1 VIEW, NON [id number] 23:44:00Reason for exam:- >SHORTNESS OF BREATHReason for [...] structures are grossly unremarkable. Signed: Kassi Oseguera MDReport Verified Date/Time: 07/15/2019 23:44:04 B-TYPE NATRIURETIC FACTOR (BNP)2019-07-15 23:19:00 Test Item Value Reference Range Interpretation Comments B-TYPE NATRIURETIC PEPTIDE (BEAKER) 482 pg/mL 0-100 H (test code = 700) Thermostat Maker ID - LACIE DE LA VEGA [id number] 23:17:00 Test Item Value Reference Range Interpretation [...] failure, acidosis, acute neurological disease, and persistent tachyarrhythmia.Thermostat Maker ID - LACIE BCOMPREHENSIVE METABOLIC [id number] 23:11:00 Test Item Value Reference Range Interpretation [...] S NOT APPLICABLE FOR DIALYSIS PATIEN TS. Thermostat Maker ID - LACIE BCBC W/PLT COUNT & AUTO [id number] 22:51:00 Test Item Value Reference Range Interpretation [...] = 2801) Panel Description: Hemoglobin A1c/Hemoglobin.total in [id number] 09:26:00 Test Item Value Reference Range Interpretation Comments Hemoglobin A1c (test code 10.1 % 4.8-5.6 H = 4548-4) . Prediabetes: 5. 7 - 6.4 Diabete s: >6.4 Glycemi c control for niall lts with diabetes: <7.0

P erforme d by:
[facility] ([place])

[facility] Description: Hemoglobin A1c/Hemoglobin.total in Blood 2019-07-04 09:26:00 Test Item Value Reference Range Interpretation Comments Hemoglobin A1c (test code 10.1 % 4.8-5.6 H = 4548-4) . Prediabetes: 5. 7 - 6.4 Diabete s: >6.4 Glycemi c control for niall lts with diabetes: <7.0

P erforme d by:
[facility] ([place])

[facility] Description: Hemoglobin A1c/Hemoglobin.total in Blood 2019-07-04 09:26:00 Test Item Value Reference Range Interpretation Comments Hemoglobin A1c (test code 10.1 % 4.8-5.6 H = 4548-4) . Prediabetes: 5. 7 - 6.4 Diabete s: >6.4 Glycemi c control for niall lts with diabetes: <7.0

P erforme d by:
[facility] ([place]

[facility] Description: Hemoglobin A1c/Hemoglobin.total in Blood 2019-07-04 09:26:00 Test Item Value Reference Range Interpretation Comments Hemoglobin A1c (test code 10.1 % 4.8-5.6 H = 4548-4) . Prediabetes: 5. 7 - 6.4 Diabete s: >6.4 Glycemi c control for niall lts with diabetes: <7.0

P erforme d by:
[facility] ([place]

[facility] Description: Hemoglobin A1c/Hemoglobin.total in Blood 2019-07-04 09:26:00 Test Item Value Reference Range Interpretation Comments Hemoglobin A1c (test code 10.1 % 4.8-5.6 H = 4548-4) . Prediabetes: 5. 7 - 6.4 Diabete s: >6.4 Glycemi c control for niall lts with diabetes: <7.0

P erforme d by:
[facility] ([place])

[facility] Description: Hemoglobin A1c/Hemoglobin.total in Blood 2019-07-04 09:26:00 Test Item Value Reference Range Interpretation Comments Hemoglobin A1c (test code 10.1 % 4.8-5.6 H = 4548-4) . Prediabetes: 5. 7 - 6.4 Diabete s: >6.4 Glycemi c control for niall lts with diabetes: <7.0

P erforme d by:
[facility] ([place]

[facility] Description: Hemoglobin A1c/Hemoglobin.total in Blood 2019-07-04 09:26:00 Test Item Value Reference Range Interpretation Comments Hemoglobin A1c (test code 10.1 % 4.8-5.6 H = 4548-4) . Prediabetes: 5. 7 - 6.4 Diabete s: >6.4 Glycemi c control for niall lts with diabetes: <7.0

P erforme d by:
[facility] ([place]

[facility] Description: Hemoglobin A1c/Hemoglobin.total in Blood 2019-07-04 09:26:00 Test Item Value Reference Range Interpretation Comments Hemoglobin A1c (test code 10.1 % 4.8-5.6 H = 4548-4) . Prediabetes: 5. 7 - 6.4 Diabete s: >6.4 Glycemi c control for niall lts with diabetes: <7.0

P erforme d by:
[facility] ([place]

[facility] Description: Hemoglobin A1c/Hemoglobin.total in Blood 2019-07-04 09:26:00 Test Item Value Reference Range Interpretation Comments Hemoglobin A1c (test code 10.1 % 4.8-5.6 H = 4548-4) . Prediabetes: 5. 7 - 6.4 Diabete s: >6.4 Glycemi c control for niall lts with diabetes: <7.0

P erforme d by:
[facility] ([place])

[facility] Description: Hemoglobin A1c/Hemoglobin.total in Blood 2019-07-04 09:26:00 Test Item Value Reference Range Interpretation Comments Hemoglobin A1c (test code 10.1 % 4.8-5.6 H = 4548-4) . Prediabetes: 5. 7 - 6.4 Diabete s: >6.4 Glycemi c control for niall lts with diabetes: <7.0

P erforme d by:
[facility] ([place]

[facility] Description: Hemoglobin A1c/Hemoglobin.total in Blood 2019-07-04 09:26:00 Test Item Value Reference Range Interpretation Comments Hemoglobin A1c (test code 10.1 % 4.8-5.6 H = 4548-4) . Prediabetes: 5. 7 - 6.4 Diabete s: >6.4 Glycemi c control for niall lts with diabetes: <7.0

P erforme d by:
[facility] ([place]

[facility] Description: Hemoglobin A1c/Hemoglobin.total in Blood 2019-07-04 09:26:00 Test Item Value Reference Range Interpretation Comments Hemoglobin A1c (test code 10.1 % 4.8-5.6 H = 4548-4) . Prediabetes: 5. 7 - 6.4 Diabete s: >6.4 Glycemi c control for niall lts with diabetes: <7.0

P erforme d by:
[facility] ([place]

[facility] Description: Hemoglobin A1c/Hemoglobin.total in Blood 2019-07-04 09:26:00 Test Item Value Reference Range Interpretation Comments Hemoglobin A1c (test code 10.1 % 4.8-5.6 H = 4548-4) . Prediabetes: 5. 7 - 6.4 Diabete s: >6.4 Glycemi c control for niall lts with diabetes: <7.0

P erforme d by:
[facility] ([place]

[facility] Description: Hemoglobin A1c/Hemoglobin.total in Blood 2019-07-04 09:26:00 Test Item Value Reference Range Interpretation Comments Hemoglobin A1c (test code 10.1 % 4.8-5.6 H = 4548-4) . Prediabetes: 5. 7 - 6.4 Diabete s: >6.4 Glycemi c control for niall lts with diabetes: <7.0

P erforme d by:
[facility] ([place]

[facility] Description: Hemoglobin A1c/Hemoglobin.total in Blood 2019-07-04 09:26:00 Test Item Value Reference Range Interpretation Comments Hemoglobin A1c (test code 10.1 % 4.8-5.6 H = 4548-4) . Prediabetes: 5. 7 - 6.4 Diabete s: >6.4 Glycemi c control for niall lts with diabetes: <7.0

P erforme d by:
[facility] ([place]

[facility] Description: Hemoglobin A1c/Hemoglobin.total in Blood 2019-07-04 09:26:00 Test Item Value Reference Range Interpretation Comments Hemoglobin A1c (test code 10.1 % 4.8-5.6 H = 4548-4) . Prediabetes: 5. 7 - 6.4 Diabete s: >6.4 Glycemi c control for niall lts with diabetes: <7.0

P erforme d by:
[facility] ([place]

[facility] Description: Hemoglobin A1c/Hemoglobin.total in Blood 2019-07-04 09:26:00 Test Item Value Reference Range Interpretation Comments Hemoglobin A1c (test code 10.1 % 4.8-5.6 H = 4548-4) . Prediabetes: 5. 7 - 6.4 Diabete s: >6.4 Glycemi c control for niall lts with diabetes: <7.0

P erforme d by:
[facility] ([place]

[facility] Description: Hemoglobin A1c/Hemoglobin.total in Blood 2019-07-04 09:26:00 Test Item Value Reference Range Interpretation Comments Hemoglobin A1c (test code 10.1 % 4.8-5.6 H = 4548-4) . Prediabetes: 5. 7 - 6.4 Diabete s: >6.4 Glycemi c control for niall lts with diabetes: <7.0

P erforme d by:
[facility] ([place]

[facility] Description: Hemoglobin A1c/Hemoglobin.total in Blood 2019-07-04 09:26:00 Test Item Value Reference Range Interpretation Comments Hemoglobin A1c (test code 10.1 % 4.8-5.6 H = 4548-4) . Prediabetes: 5. 7 - 6.4 Diabete s: >6.4 Glycemi c control for niall lts with diabetes: <7.0

P erforme d by:
[facility] ([place]

[facility] Description: Hemoglobin A1c/Hemoglobin.total in Blood 2019-07-04 09:26:00 Test Item Value Reference Range Interpretation Comments Hemoglobin A1c (test code 10.1 % 4.8-5.6 H = 4548-4) . Prediabetes: 5. 7 - 6.4 Diabete s: >6.4 Glycemi c control for niall lts with diabetes: <7.0

P erforme d by:
[facility] ([place]

[facility] Description: Hemoglobin A1c/Hemoglobin.total in Blood 2019-07-04 09:26:00 Test Item Value Reference Range Interpretation Comments Hemoglobin A1c (test code 10.1 % 4.8-5.6 H = 4548-4) . Prediabetes: 5. 7 - 6.4 Diabete s: >6.4 Glycemi c control for niall lts with diabetes: <7.0

P erforme d by:
[facility] ([place])

[facility] Description: Hemoglobin A1c/Hemoglobin.total in Blood 2019-07-04 09:26:00 Test Item Value Reference Range Interpretation Comments Hemoglobin A1c (test code 10.1 % 4.8-5.6 H = 4548-4) . Prediabetes: 5. 7 - 6.4 Diabete s: >6.4 Glycemi c control for niall lts with diabetes: <7.0

P erforme d by:
[facility] ([place]

[facility] Description: Hemoglobin A1c/Hemoglobin.total in Blood 2019-07-04 09:26:00 Test Item Value Reference Range Interpretation Comments Hemoglobin A1c (test code 10.1 % 4.8-5.6 H = 4548-4) . Prediabetes: 5. 7 - 6.4 Diabete s: >6.4 Glycemi c control for niall lts with diabetes: <7.0

P erforme d by:
[facility] ([place]

[facility] Description: Hemoglobin A1c/Hemoglobin.total in Blood 2019-07-04 09:26:00 Test Item Value Reference Range Interpretation Comments Hemoglobin A1c (test code 10.1 % 4.8-5.6 H = 4548-4) . Prediabetes: 5. 7 - 6.4 Diabete s: >6.4 Glycemi c control for niall lts with diabetes: <7.0

P erforme d by:
[facility] ([place]

[facility] Description: Hemoglobin A1c/Hemoglobin.total in Blood 2019-07-04 09:26:00 Test Item Value Reference Range Interpretation Comments Hemoglobin A1c (test code 10.1 % 4.8-5.6 H = 4548-4) . Prediabetes: 5. 7 - 6.4 Diabete s: >6.4 Glycemi c control for niall lts with diabetes: <7.0

P erforme d by:
[facility] ([place]

[facility] Description: Hemoglobin A1c/Hemoglobin.total in Blood 2019-07-04 09:26:00 Test Item Value Reference Range Interpretation Comments Hemoglobin A1c (test code 10.1 % 4.8-5.6 H = 4548-4) . Prediabetes: 5. 7 - 6.4 Diabete s: >6.4 Glycemi c control for niall lts with diabetes: <7.0

P erforme d by:
[facility] ([place]

[facility] Description: Hemoglobin A1c/Hemoglobin.total in Blood 2019-07-04 09:26:00 Test Item Value Reference Range Interpretation Comments Hemoglobin A1c (test code 10.1 % 4.8-5.6 H = 4548-4) . Prediabetes: 5. 7 - 6.4 Diabete s: >6.4 Glycemi c control for niall lts with diabetes: <7.0

P erforme d by:
[facility] ([place]

[facility] Description: Lipid [id number] 01:17:00 Test Item Value Reference Range Interpretation Comments Cholesterol, Total (test code = 241 mg/dL 100-199 H 3-3) Triglycerides (test code = 2571-8) 57 mg/dL 0-149 HDL Cholesterol (test code = 37 mg/dL >39 L 5-9) VLDL Cholesterol Renuka (test code = 11 mg/dL 5-40 46648-9) LDL Cholesterol Calc (test code = 193 mg/dL 0-99 H 19684-5) Comment: (test code = 64423-5) [facility] Description: Lipid [id number] 01:17:00 Test Item Value Reference Range Interpretation Comments Cholesterol, Total (test code = 241 mg/dL 100-199 H 2093-3) Triglycerides (test code = 2571-8) 57 mg/dL 0-149 HDL Cholesterol (test code = 37 mg/dL >39 L 2085-9) VLDL Cholesterol Renuka (test code = 11 mg/dL 5-40 21233-1) LDL Cholesterol Calc (test code = 193 mg/dL 0-99 H 96531-0) Comment: (test code = 39463-4) [facility] Description: Lipid [id number] 01:17:00 Test Item Value Reference Range Interpretation Comments Cholesterol, Total (test code = 241 mg/dL 100-199 H 2093-3) Triglycerides (test code = 2571-8) 57 mg/dL 0-149 HDL Cholesterol (test code = 37 mg/dL >39 L 2085-9) VLDL Cholesterol Renuka (test code = 11 mg/dL 5-40 61284-4) LDL Cholesterol Calc (test code = 193 mg/dL 0-99 H 88922-8) Comment: (test code = 87447-0) [facility] Description: Lipid [id number] 01:17:00 Test Item Value Reference Range Interpretation Comments Cholesterol, Total (test code = 241 mg/dL 100-199 H 2093-3) Triglycerides (test code = 2571-8) 57 mg/dL 0-149 HDL Cholesterol (test code = 37 mg/dL >39 L 2085-9) VLDL Cholesterol Renuka (test code = 11 mg/dL 5-40 92959-4) LDL Cholesterol Calc (test code = 193 mg/dL 0-99 H 87122-0) Comment: (test code = 04571-7) [facility] Description: Lipid [id number] 01:17:00 Test Item Value Reference Range Interpretation Comments Cholesterol, Total (test code = 241 mg/dL 100-199 H 2093-3) Triglycerides (test code = 2571-8) 57 mg/dL 0-149 HDL Cholesterol (test code = 37 mg/dL >39 L 2085-9) VLDL Cholesterol Renuka (test code = 11 mg/dL 5-40 76336-7) LDL Cholesterol Calc (test code = 193 mg/dL 0-99 H 72483-2) Comment: (test code = 58588-0) [facility] Description: Lipid [id number] 01:17:00 Test Item Value Reference Range Interpretation Comments Cholesterol, Total (test code = 241 mg/dL 100-199 H 2093-3) Triglycerides (test code = 2571-8) 57 mg/dL 0-149 HDL Cholesterol (test code = 37 mg/dL >39 L 2085-9) VLDL Cholesterol Renuka (test code = 11 mg/dL 5-40 62082-6) LDL Cholesterol Calc (test code = 193 mg/dL 0-99 H 63922-9) Comment: (test code = 41448-2) [facility] Description: Lipid [id number] 01:17:00 Test Item Value Reference Range Interpretation Comments Cholesterol, Total (test code = 241 mg/dL 100-199 H 2093-3) Triglycerides (test code = 2571-8) 57 mg/dL 0-149 HDL Cholesterol (test code = 37 mg/dL >39 L 2085-9) VLDL Cholesterol Renuka (test code = 11 mg/dL 5-40 69453-7) LDL Cholesterol Calc (test code = 193 mg/dL 0-99 H 05707-2) Comment: (test code = 95906-5) [facility] Description: Lipid [id number] 01:17:00 Test Item Value Reference Range Interpretation Comments Cholesterol, Total (test code = 241 mg/dL 100-199 H 2093-3) Triglycerides (test code = 2571-8) 57 mg/dL 0-149 HDL Cholesterol (test code = 37 mg/dL >39 L 2085-9) VLDL Cholesterol Renuka (test code = 11 mg/dL 5-40 29494-3) LDL Cholesterol Calc (test code = 193 mg/dL 0-99 H 54030-2) Comment: (test code = 94695-7) [facility] Description: Lipid [id number] 01:17:00 Test Item Value Reference Range Interpretation Comments Cholesterol, Total (test code = 241 mg/dL 100-199 H 2093-3) Triglycerides (test code = 2571-8) 57 mg/dL 0-149 HDL Cholesterol (test code = 37 mg/dL >39 L 2085-9) VLDL Cholesterol Renuka (test code = 11 mg/dL 5-40 36557-7) LDL Cholesterol Calc (test code = 193 mg/dL 0-99 H 94890-4) Comment: (test code = 20842-9) [facility] Description: Lipid [id number] 01:17:00 Test Item Value Reference Range Interpretation Comments Cholesterol, Total (test code = 241 mg/dL 100-199 H 2093-3) Triglycerides (test code = 2571-8) 57 mg/dL 0-149 HDL Cholesterol (test code = 37 mg/dL >39 L 2085-9) VLDL Cholesterol Renuka (test code = 11 mg/dL 5-40 26574-6) LDL Cholesterol Calc (test code = 193 mg/dL 0-99 H 85296-9) Comment: (test code = 32145-4) [facility] Description: Lipid [id number] 01:17:00 Test Item Value Reference Range Interpretation Comments Cholesterol, Total (test code = 241 mg/dL 100-199 H 2093-3) Triglycerides (test code = 2571-8) 57 mg/dL 0-149 HDL Cholesterol (test code = 37 mg/dL >39 L 2085-9) VLDL Cholesterol Renuka (test code = 11 mg/dL 5-40 06130-6) LDL Cholesterol Calc (test code = 193 mg/dL 0-99 H 37471-1) Comment: (test code = 04516-2) [facility] Description: Lipid [id number] 01:17:00 Test Item Value Reference Range Interpretation Comments Cholesterol, Total (test code = 241 mg/dL 100-199 H 2093-3) Triglycerides (test code = 2571-8) 57 mg/dL 0-149 HDL Cholesterol (test code = 37 mg/dL >39 L 2085-9) VLDL Cholesterol Renuka (test code = 11 mg/dL 5-40 15231-7) LDL Cholesterol Calc (test code = 193 mg/dL 0-99 H 63071-6) Comment: (test code = 68587-9) [facility] Description: Lipid [id number] 01:17:00 Test Item Value Reference Range Interpretation Comments Cholesterol, Total (test code = 241 mg/dL 100-199 H 2093-3) Triglycerides (test code = 2571-8) 57 mg/dL 0-149 HDL Cholesterol (test code = 37 mg/dL >39 L 2085-9) VLDL Cholesterol Renuka (test code = 11 mg/dL 5-40 79923-1) LDL Cholesterol Calc (test code = 193 mg/dL 0-99 H 71888-7) Comment: (test code = 60976-2) [facility] Description: Lipid [id number] 01:17:00 Test Item Value Reference Range Interpretation Comments Cholesterol, Total (test code = 241 mg/dL 100-199 H 2093-3) Triglycerides (test code = 2571-8) 57 mg/dL 0-149 HDL Cholesterol (test code = 37 mg/dL >39 L 2085-9) VLDL Cholesterol Renuka (test code = 11 mg/dL 5-40 72918-6) LDL Cholesterol Calc (test code = 193 mg/dL 0-99 H 76013-8) Comment: (test code = 00375-7) [facility] Description: Lipid [id number] 01:17:00 Test Item Value Reference Range Interpretation Comments Cholesterol, Total (test code = 241 mg/dL 100-199 H 2093-3) Triglycerides (test code = 2571-8) 57 mg/dL 0-149 HDL Cholesterol (test code = 37 mg/dL >39 L 2085-9) VLDL Cholesterol Renuka (test code = 11 mg/dL 5-40 02307-0) LDL Cholesterol Calc (test code = 193 mg/dL 0-99 H 34553-9) Comment: (test code = 90775-4) [facility] Description: Lipid [id number] 01:17:00 Test Item Value Reference Range Interpretation Comments Cholesterol, Total (test code = 241 mg/dL 100-199 H 2093-3) Triglycerides (test code = 2571-8) 57 mg/dL 0-149 HDL Cholesterol (test code = 37 mg/dL >39 L 2085-9) VLDL Cholesterol Renuka (test code = 11 mg/dL 5-40 50780-3) LDL Cholesterol Calc (test code = 193 mg/dL 0-99 H 76300-8) Comment: (test code = 74037-8) [facility] Description: Lipid [id number] 01:17:00 Test Item Value Reference Range Interpretation Comments Cholesterol, Total (test code = 241 mg/dL 100-199 H 2093-3) Triglycerides (test code = 2571-8) 57 mg/dL 0-149 HDL Cholesterol (test code = 37 mg/dL >39 L 2085-9) VLDL Cholesterol Renuka (test code = 11 mg/dL 5-40 03406-4) LDL Cholesterol Calc (test code = 193 mg/dL 0-99 H 68410-0) Comment: (test code = 92858-3) [facility] Description: Lipid [id number] 01:17:00 Test Item Value Reference Range Interpretation Comments Cholesterol, Total (test code = 241 mg/dL 100-199 H 2093-3) Triglycerides (test code = 2571-8) 57 mg/dL 0-149 HDL Cholesterol (test code = 37 mg/dL >39 L 2085-9) VLDL Cholesterol Renuka (test code = 11 mg/dL 5-40 17363-4) LDL Cholesterol Calc (test code = 193 mg/dL 0-99 H 11271-5) Comment: (test code = 01888-6) [facility] Description: Lipid [id number] 01:17:00 Test Item Value Reference Range Interpretation Comments Cholesterol, Total (test code = 241 mg/dL 100-199 H 2093-3) Triglycerides (test code = 2571-8) 57 mg/dL 0-149 HDL Cholesterol (test code = 37 mg/dL >39 L 2085-9) VLDL Cholesterol Renuka (test code = 11 mg/dL 5-40 78489-0) LDL Cholesterol Calc (test code = 193 mg/dL 0-99 H 53370-7) Comment: (test code = 96609-5) [facility] Description: Lipid [id number] 01:17:00 Test Item Value Reference Range Interpretation Comments Cholesterol, Total (test code = 241 mg/dL 100-199 H 2093-3) Triglycerides (test code = 2571-8) 57 mg/dL 0-149 HDL Cholesterol (test code = 37 mg/dL >39 L 2085-9) VLDL Cholesterol Renuka (test code = 11 mg/dL 5-40 34883-3) LDL Cholesterol Calc (test code = 193 mg/dL 0-99 H 14936-7) Comment: (test code = 73340-3) [facility] Description: Lipid [id number] 01:17:00 Test Item Value Reference Range Interpretation Comments Cholesterol, Total (test code = 241 mg/dL 100-199 H 2093-3) Triglycerides (test code = 2571-8) 57 mg/dL 0-149 HDL Cholesterol (test code = 37 mg/dL >39 L 2085-9) VLDL Cholesterol Renuka (test code = 11 mg/dL 5-40 66681-0) LDL Cholesterol Calc (test code = 193 mg/dL 0-99 H 38721-8) Comment: (test code = 67357-2) [facility] Description: Lipid [id number] 01:17:00 Test Item Value Reference Range Interpretation Comments Cholesterol, Total (test code = 241 mg/dL 100-199 H 2093-3) Triglycerides (test code = 2571-8) 57 mg/dL 0-149 HDL Cholesterol (test code = 37 mg/dL >39 L 2085-9) VLDL Cholesterol Renuka (test code = 11 mg/dL 5-40 23681-8) LDL Cholesterol Calc (test code = 193 mg/dL 0-99 H 89924-0) Comment: (test code = 32619-1) [facility] Description: Lipid [id number] 01:17:00 Test Item Value Reference Range Interpretation Comments Cholesterol, Total (test code = 241 mg/dL 100-199 H 2093-3) Triglycerides (test code = 2571-8) 57 mg/dL 0-149 HDL Cholesterol (test code = 37 mg/dL >39 L 2085-9) VLDL Cholesterol Renuka (test code = 11 mg/dL 5-40 89158-3) LDL Cholesterol Calc (test code = 193 mg/dL 0-99 H 20643-1) Comment: (test code = 30854-2) [facility] Description: Lipid [id number] 01:17:00 Test Item Value Reference Range Interpretation Comments Cholesterol, Total (test code = 241 mg/dL 100-199 H 2093-3) Triglycerides (test code = 2571-8) 57 mg/dL 0-149 HDL Cholesterol (test code = 37 mg/dL >39 L 2085-9) VLDL Cholesterol Renuka (test code = 11 mg/dL 5-40 15079-2) LDL Cholesterol Calc (test code = 193 mg/dL 0-99 H 05999-0) Comment: (test code = 61489-8) [facility] Description: Lipid [id number] 01:17:00 Test Item Value Reference Range Interpretation Comments Cholesterol, Total (test code = 241 mg/dL 100-199 H 2093-3) Triglycerides (test code = 2571-8) 57 mg/dL 0-149 HDL Cholesterol (test code = 37 mg/dL >39 L 2085-9) VLDL Cholesterol Renuka (test code = 11 mg/dL 5-40 15199-5) LDL Cholesterol Calc (test code = 193 mg/dL 0-99 H 13641-4) Comment: (test code = 41208-3) [employer] [facility] Description: Lipid [id number] 01:17:00 Test Item Value Reference Range Interpretation Comments Cholesterol, Total (test code = 241 mg/dL 100-199 H 2093-3) Triglycerides (test code = 2571-8) 57 mg/dL 0-149 HDL Cholesterol (test code = 37 mg/dL >39 L 2085-9) VLDL Cholesterol Renuka (test code = 11 mg/dL 5-40 45949-5) LDL Cholesterol Calc (test code = 193 mg/dL 0-99 H 81518-1) Comment: (test code = 25307-4) [facility] Description: Lipid [id number] 01:17:00 Test Item Value Reference Range Interpretation Comments Cholesterol, Total (test code = 241 mg/dL 100-199 H 2093-3) Triglycerides (test code = 2571-8) 57 mg/dL 0-149 HDL Cholesterol (test code = 37 mg/dL >39 L 2085-9) VLDL Cholesterol Renuka (test code = 11 mg/dL 5-40 95838-3) LDL Cholesterol Calc (test code = 193 mg/dL 0-99 H 43782-3) Comment: (test code = 55939-6) [facility] Description: Comp. Metabolic Panel (14)2019-07-04 01:03:00 Test Item Value Reference Range Interpretation Comments Glucose (test code = 2345-7) 262 mg/dL 65-99 H BUN (test code = 3094-0) 27 mg/dL 6-24 H Creatinine (test code = 1.46 mg/dL 0.76-1.27 H 2160-0) eGFR If NonAfricn Am (test 57 mL/min/1.73 >59 L code = 24772-1) eGFR If Africn Am (test code = 66 mL/min/1.73 >59 61242-5) BUN/Creatinine Ratio (test 12-16 code = 3097-3) Sodium (test code = 2951-2) 140 mmol/L 134-144 Potassium (test code = 2823-3) 4.4 mmol/L 3.5-5.2 Chloride (test code = 2075-0) 106 mmol/L 96-106 Carbon Dioxide, Total (test 23 mmol/L 20-29 code = 2028-9) Calcium (test code = 03263-9) 8.7 mg/dL 8.7-10.2 Protein, Total (test code = 5.3 g/dL 6.0-8.5 L 2885-2) Albumin (test code = 1751-7) 3.0 g/dL 4.0-5.0 L Globulin, Total (test code = 2.3 g/dL 1.5-4.5 12136-4) A/G Ratio (test code = 1759-0) 1.3 1.2-2.2 Bilirubin, Total (test code = 0.5 mg/dL 0.0-1.2 1975-2) Alkaline Phosphatase (test 95 IU/L 39-117 code = 6768-6) AST (SGOT) (test code = 16 IU/L 0-40 1920-8) ALT (SGPT) (test code = 23 IU/L 0-44 1742-6) [facility] Description: Comp. Metabolic Panel (14)2019-07-04 01:03:00 Test Item Value Reference Range Interpretation Comments Glucose (test code = 2345-7) 262 mg/dL 65-99 H BUN (test code = 3094-0) 27 mg/dL 6-24 H Creatinine (test code = 1.46 mg/dL 0.76-1.27 H 2160-0) eGFR If NonAfricn Am (test 57 mL/min/1.73 >59 L code = 51574-6) eGFR If Africn Am (test code = 66 mL/min/1.73 >59 40887-7) BUN/Creatinine Ratio (test 12-16 code = 3097-3) Sodium (test code = 2951-2) 140 mmol/L 134-144 Potassium (test code = 2823-3) 4.4 mmol/L 3.5-5.2 Chloride (test code = 2075-0) 106 mmol/L 96-106 Carbon Dioxide, Total (test 23 mmol/L 20-29 code = 8-9) Calcium (test code = 37596-9) 8.7 mg/dL 8.7-10.2 Protein, Total (test code = 5.3 g/dL 6.0-8.5 L 2885-2) Albumin (test code = 1751-7) 3.0 g/dL 4.0-5.0 L Globulin, Total (test code = 2.3 g/dL 1.5-4.5 45924-1) A/G Ratio (test code = 1759-0) 1.3 1.2-2.2 Bilirubin, Total (test code = 0.5 mg/dL 0.0-1.2 1975-2) Alkaline Phosphatase (test 95 IU/L 39-117 code = 6768-6) AST (SGOT) (test code = 16 IU/L 0-40 1920-8) ALT (SGPT) (test code = 23 IU/L 0-44 1742-6) [facility] Description: Comp. Metabolic Panel (14)2019-07-04 01:03:00 Test Item Value Reference Range Interpretation Comments Glucose (test code = 2345-7) 262 mg/dL 65-99 H BUN (test code = 3094-0) 27 mg/dL 6-24 H Creatinine (test code = 1.46 mg/dL 0.76-1.27 H 2160-0) eGFR If NonAfricn Am (test 57 mL/min/1.73 >59 L code = 36278-7) eGFR If Africn Am (test code = 66 mL/min/1.73 >59 29226-6) BUN/Creatinine Ratio (test 18 9-20 code = 3097-3) Sodium (test code = 2951-2) 140 mmol/L 134-144 Potassium (test code = 2823-3) 4.4 mmol/L 3.5-5.2 Chloride (test code = 2075-0) 106 mmol/L 96-106 Carbon Dioxide, Total (test 23 mmol/L - code = 2027-9) Calcium (test code = 28451-0) 8.7 mg/dL 8.7-10.2 Protein, Total (test code = 5.3 g/dL 6.0-8.5 L 2885-2) Albumin (test code = 1751-7) 3.0 g/dL 4.0-5.0 L Globulin, Total (test code = 2.3 g/dL 1.5-4.5 97590-6) A/G Ratio (test code = 1759-0) 1.3 1.2-2.2 Bilirubin, Total (test code = 0.5 mg/dL 0.0-1.2 1975-2) Alkaline Phosphatase (test 95 IU/L 39-117 code = 6768-6) AST (SGOT) (test code = 16 IU/L 0-40 1920-8) ALT (SGPT) (test code = 23 IU/L 0-44 1742-6) [facility] Description: Comp. Metabolic Panel (14)2019-07-04 01:03:00 Test Item Value Reference Range Interpretation Comments Glucose (test code = 2345-7) 262 mg/dL 65-99 H BUN (test code = 3094-0) 27 mg/dL 6-24 H Creatinine (test code = 1.46 mg/dL 0.76-1.27 H 2160-0) eGFR If NonAfricn Am (test 57 mL/min/1.73 >59 L code = 48540-1) eGFR If Africn Am (test code = 66 mL/min/1.73 >59 99615-9) BUN/Creatinine Ratio (test 18 12-16 code = 3097-3) Sodium (test code = 2951-2) 140 mmol/L 134-144 Potassium (test code = 2823-3) 4.4 mmol/L 3.5-5.2 Chloride (test code = 2075-0) 106 mmol/L 96-106 Carbon Dioxide, Total (test 23 mmol/L -29 code = 8-9) Calcium (test code = 93765-1) 8.7 mg/dL 8.7-10.2 Protein, Total (test code = 5.3 g/dL 6.0-8.5 L 2885-2) Albumin (test code = 1751-7) 3.0 g/dL 4.0-5.0 L Globulin, Total (test code = 2.3 g/dL 1.5-4.5 04575-0) A/G Ratio (test code = 1759-0) 1.3 1.2-2.2 Bilirubin, Total (test code = 0.5 mg/dL 0.0-1.2 1975-2) Alkaline Phosphatase (test 95 IU/L 39-117 code = 6768-6) AST (SGOT) (test code = 16 IU/L 0-40 1920-8) ALT (SGPT) (test code = 23 IU/L 0-44 1742-6) [facility] Description: Comp. Metabolic Panel (14)2019-07-04 01:03:00 Test Item Value Reference Range Interpretation Comments Glucose (test code = 2345-7) 262 mg/dL 65-99 H BUN (test code = 3094-0) 27 mg/dL 6-24 H Creatinine (test code = 1.46 mg/dL 0.76-1.27 H 2160-0) eGFR If NonAfricn Am (test 57 mL/min/1.73 >59 L code = 56226-7) eGFR If Africn Am (test code = 66 mL/min/1.73 >59 08351-3) BUN/Creatinine Ratio (test 18 9-20 code = 3097-3) Sodium (test code = 2951-2) 140 mmol/L 134-144 Potassium (test code = 2823-3) 4.4 mmol/L 3.5-5.2 Chloride (test code = 2075-0) 106 mmol/L 96-106 Carbon Dioxide, Total (test 23 mmol/L 20-29 code = 2028-9) Calcium (test code = 61018-7) 8.7 mg/dL 8.7-10.2 Protein, Total (test code = 5.3 g/dL 6.0-8.5 L 2885-2) Albumin (test code = 1751-7) 3.0 g/dL 4.0-5.0 L Globulin, Total (test code = 2.3 g/dL 1.5-4.5 99042-5) A/G Ratio (test code = 1759-0) 1.3 1.2-2.2 Bilirubin, Total (test code = 0.5 mg/dL 0.0-1.2 1974-04) Alkaline Phosphatase (test 95 IU/L 39-117 code = 6768-6) AST (SGOT) (test code = 16 IU/L 0-40 1920-8) ALT (SGPT) (test code = 23 IU/L 0-44 1742-6) [facility] Description: Comp. Metabolic Panel (14)2019-07-04 01:03:00 Test Item Value Reference Range Interpretation Comments Glucose (test code = 2345-7) 262 mg/dL 65-99 H BUN (test code = 3094-0) 27 mg/dL 6-24 H Creatinine (test code = 1.46 mg/dL 0.76-1.27 H 2160-0) eGFR If NonAfricn Am (test 57 mL/min/1.73 >59 L code = 35692-5) eGFR If Africn Am (test code = 66 mL/min/1.73 >59 78165-6) BUN/Creatinine Ratio (test 18 9-20 code = 3097-3) Sodium (test code = 2951-2) 140 mmol/L 134-144 Potassium (test code = 2823-3) 4.4 mmol/L 3.5-5.2 Chloride (test code = 2075-0) 106 mmol/L 96-106 Carbon Dioxide, Total (test 23 mmol/L 20-29 code = 2028-9) Calcium (test code = 85560-2) 8.7 mg/dL 8.7-10.2 Protein, Total (test code = 5.3 g/dL 6.0-8.5 L 2885-2) Albumin (test code = 1751-7) 3.0 g/dL 4.0-5.0 L Globulin, Total (test code = 2.3 g/dL 1.5-4.5 08257-4) A/G Ratio (test code = 1759-0) 1.3 1.2-2.2 Bilirubin, Total (test code = 0.5 mg/dL 0.0-1.2 1974-04) Alkaline Phosphatase (test 95 IU/L 39-117 code = 6768-6) AST (SGOT) (test code = 16 IU/L 0-40 1920-8) ALT (SGPT) (test code = 23 IU/L 0-44 1742-6) [facility]: Comp[facility] (14)2019-07-04 01:03:00 Test Item Value Reference Range Interpretation Comments Glucose (test code = 2345-7) 262 mg/dL 65-99 H BUN (test code = 3094-0) 27 mg/dL 6-24 H Creatinine (test code = 1.46 mg/dL 0.76-1.27 H 2160-0) eGFR If NonAfricn Am (test 57 mL/min/1.73 >59 L code = 10618-5) eGFR If Africn Am (test code = 66 mL/min/1.73 >59 81311-0) BUN/Creatinine Ratio (test 18 9-20 code = 3097-3) Sodium (test code = 2951-2) 140 mmol/L 134-144 Potassium (test code = 2823-3) 4.4 mmol/L 3.5-5.2 Chloride (test code = 2075-0) 106 mmol/L 96-106 Carbon Dioxide, Total (test 23 mmol/L 20-29 code = 2028-9) Calcium (test code = 81150-0) 8.7 mg/dL 8.7-10.2 Protein, Total (test code = 5.3 g/dL 6.0-8.5 L 2885-2) Albumin (test code = 1751-7) 3.0 g/dL 4.0-5.0 L Globulin, Total (test code = 2.3 g/dL 1.5-4.5 56854-5) A/G Ratio (test code = 1759-0) 1.3 1.2-2.2 Bilirubin, Total (test code = 0.5 mg/dL 0.0-1.2 1975-2) Alkaline Phosphatase (test 95 IU/L 39-117 code = 6768-6) AST (SGOT) (test code = 16 IU/L 0-40 1920-8) ALT (SGPT) (test code = 23 IU/L 0-44 1742-6) [facility] (14)2019-07-04 01:03:00 Test Item Value Reference Range Interpretation Comments Glucose (test code = 2345-7) 262 mg/dL 65-99 H BUN (test code = 3094-0) 27 mg/dL 6-24 H Creatinine (test code = 1.46 mg/dL 0.76-1.27 H 2160-0) eGFR If NonAfricn Am (test 57 mL/min/1.73 >59 L code = 23396-6) eGFR If Africn Am (test code = 66 mL/min/1.73 >59 24189-1) BUN/Creatinine Ratio (test 18 9-20 code = 3097-3) Sodium (test code = 2951-2) 140 mmol/L 134-144 Potassium (test code = 2823-3) 4.4 mmol/L 3.5-5.2 Chloride (test code = 2075-0) 106 mmol/L 96-106 Carbon Dioxide, Total (test 23 mmol/L 20-29 code = 2028-9) Calcium (test code = 60535-6) 8.7 mg/dL 8.7-10.2 Protein, Total (test code = 5.3 g/dL 6.0-8.5 L 2885-2) Albumin (test code = 1751-7) 3.0 g/dL 4.0-5.0 L Globulin, Total (test code = 2.3 g/dL 1.5-4.5 79688-9) A/G Ratio (test code = 1759-0) 1.3 1.2-2.2 Bilirubin, Total (test code = 0.5 mg/dL 0.0-1.2 1975-2) Alkaline Phosphatase (test 95 IU/L 39-117 code = 6768-6) AST (SGOT) (test code = 16 IU/L 0-40 1920-8) ALT (SGPT) (test code = 23 IU/L 0-44 1742-6) [facility] Description: Comp. Metabolic Panel (14)2019-07-04 01:03:00 Test Item Value Reference Range Interpretation Comments Glucose (test code = 2345-7) 262 mg/dL 65-99 H BUN (test code = 3094-0) 27 mg/dL 6-24 H Creatinine (test code = 1.46 mg/dL 0.76-1.27 H 2160-0) eGFR If NonAfricn Am (test 57 mL/min/1.73 >59 L code = 36793-8) eGFR If Africn Am (test code = 66 mL/min/1.73 >59 98388-0) BUN/Creatinine Ratio (test 18 9-20 code = 3097-3) Sodium (test code = 2951-2) 140 mmol/L 134-144 Potassium (test code = 2823-3) 4.4 mmol/L 3.5-5.2 Chloride (test code = 2075-0) 106 mmol/L 96-106 Carbon Dioxide, Total (test 23 mmol/L 20-29 code = 2028-9) Calcium (test code = 61002-3) 8.7 mg/dL 8.7-10.2 Protein, Total (test code = 5.3 g/dL 6.0-8.5 L 2885-2) Albumin (test code = 1751-7) 3.0 g/dL 4.0-5.0 L Globulin, Total (test code = 2.3 g/dL 1.5-4.5 22671-5) A/G Ratio (test code = 1759-0) 1.3 1.2-2.2 Bilirubin, Total (test code = 0.5 mg/dL 0.0-1.2 1975-2) Alkaline Phosphatase (test 95 IU/L 39-117 code = 6768-6) AST (SGOT) (test code = 16 IU/L 0-40 1920-8) ALT (SGPT) (test code = 23 IU/L 0-44 1742-6) [facility] (14)2019-07-04 01:03:00 Test Item Value Reference Range Interpretation Comments Glucose (test code = 2345-7) 262 mg/dL 65-99 H BUN (test code = 3094-0) 27 mg/dL 6-24 H Creatinine (test code = 1.46 mg/dL 0.76-1.27 H 2160-0) eGFR If NonAfricn Am (test 57 mL/min/1.73 >59 L code = 25821-0) eGFR If Africn Am (test code = 66 mL/min/1.73 >59 91888-9) BUN/Creatinine Ratio (test 18 12-16 code = 3097-3) Sodium (test code = 2951-2) 140 mmol/L 134-144 Potassium (test code = 2823-3) 4.4 mmol/L 3.5-5.2 Chloride (test code = 2075-0) 106 mmol/L 96-106 Carbon Dioxide, Total (test 23 mmol/L 20-29 code = 8-9) Calcium (test code = 68982-4) 8.7 mg/dL 8.7-10.2 Protein, Total (test code = 5.3 g/dL 6.0-8.5 L 2885-2) Albumin (test code = 1751-7) 3.0 g/dL 4.0-5.0 L Globulin, Total (test code = 2.3 g/dL 1.5-4.5 16412-2) A/G Ratio (test code = 1759-0) 1.3 1.2-2.2 Bilirubin, Total (test code = 0.5 mg/dL 0.0-1.2 1975-2) Alkaline Phosphatase (test 95 IU/L 39-117 code = 6768-6) AST (SGOT) (test code = 16 IU/L 0-40 1920-8) ALT (SGPT) (test code = 23 IU/L 0-44 1742-6) [facility] Description: Comp. Metabolic Panel (142019-07-04 01:03:00 Test Item Value Reference Range Interpretation Comments Glucose (test code = 2345-7) 262 mg/dL 65-99 H BUN (test code = 3094-0) 27 mg/dL 6-24 H Creatinine (test code = 1.46 mg/dL 0.76-1.27 H 2160-0) eGFR If NonAfricn Am (test 57 mL/min/1.73 >59 L code = 83350-3) eGFR If Africn Am (test code = 66 mL/min/1.73 >59 49151-9) BUN/Creatinine Ratio (test 18 12-16 code = 3097-3) Sodium (test code = 2951-2) 140 mmol/L 134-144 Potassium (test code = 2823-3) 4.4 mmol/L 3.5-5.2 Chloride (test code = 2075-0) 106 mmol/L 96-106 Carbon Dioxide, Total (test 23 mmol/L -29 code = 2027-9) Calcium (test code = 90047-1) 8.7 mg/dL 8.7-10.2 Protein, Total (test code = 5.3 g/dL 6.0-8.5 L 2885-2) Albumin (test code = 1751-7) 3.0 g/dL 4.0-5.0 L Globulin, Total (test code = 2.3 g/dL 1.5-4.5 32015-6) A/G Ratio (test code = 1759-0) 1.3 1.2-2.2 Bilirubin, Total (test code = 0.5 mg/dL 0.0-1.2 1975-2) Alkaline Phosphatase (test 95 IU/L 39-117 code = 6768-6) AST (SGOT) (test code = 16 IU/L 0-40 1920-8) ALT (SGPT) (test code = 23 IU/L 0-44 1742-6) [facility] Description: Comp. Metabolic Panel (142019-07-04 01:03:00 Test Item Value Reference Range Interpretation Comments Glucose (test code = 2345-7) 262 mg/dL 65-99 H BUN (test code = 3094-0) 27 mg/dL 6-24 H Creatinine (test code = 1.46 mg/dL 0.76-1.27 H 2160-0) eGFR If NonAfricn Am (test 57 mL/min/1.73 >59 L code = 72670-7) eGFR If Africn Am (test code = 66 mL/min/1.73 >59 46369-6) BUN/Creatinine Ratio (test 18 -20 code = 3097-3) Sodium (test code = 2951-2) 140 mmol/L 134-144 Potassium (test code = 2823-3) 4.4 mmol/L 3.5-5.2 Chloride (test code = 2075-0) 106 mmol/L 96-106 Carbon Dioxide, Total (test 23 mmol/L -29 code = 2027-9) Calcium (test code = 69137-1) 8.7 mg/dL 8.7-10.2 Protein, Total (test code = 5.3 g/dL 6.0-8.5 L 2885-2) Albumin (test code = 1751-7) 3.0 g/dL 4.0-5.0 L Globulin, Total (test code = 2.3 g/dL 1.5-4.5 97896-7) A/G Ratio (test code = 1759-0) 1.3 1.2-2.2 Bilirubin, Total (test code = 0.5 mg/dL 0.0-1.2 1975-2) Alkaline Phosphatase (test 95 IU/L 39-117 code = 6768-6) AST (SGOT) (test code = 16 IU/L 0-40 1920-8) ALT (SGPT) (test code = 23 IU/L 0-44 1742-6) [facility] Description: Comp. Metabolic Panel (14)2019-07-04 01:03:00 Test Item Value Reference Range Interpretation Comments Glucose (test code = 2345-7) 262 mg/dL 65-99 H BUN (test code = 3094-0) 27 mg/dL 6-24 H Creatinine (test code = 1.46 mg/dL 0.76-1.27 H 2160-0) eGFR If NonAfricn Am (test 57 mL/min/1.73 >59 L code = 80946-1) eGFR If Africn Am (test code = 66 mL/min/1.73 >59 10319-1) BUN/Creatinine Ratio (test 18 9-20 code = 3097-3) Sodium (test code = 2951-2) 140 mmol/L 134-144 Potassium (test code = 2823-3) 4.4 mmol/L 3.5-5.2 Chloride (test code = 2075-0) 106 mmol/L 96-106 Carbon Dioxide, Total (test 23 mmol/L 20-29 code = 8-9) Calcium (test code = 39132-8) 8.7 mg/dL 8.7-10.2 Protein, Total (test code = 5.3 g/dL 6.0-8.5 L 2885-2) Albumin (test code = 1751-7) 3.0 g/dL 4.0-5.0 L Globulin, Total (test code = 2.3 g/dL 1.5-4.5 92977-1) A/G Ratio (test code = 1759-0) 1.3 1.2-2.2 Bilirubin, Total (test code = 0.5 mg/dL 0.0-1.2 1975-2) Alkaline Phosphatase (test 95 IU/L 39-117 code = 6768-6) AST (SGOT) (test code = 16 IU/L 0-40 1920-8) ALT (SGPT) (test code = 23 IU/L 0-44 1742-6) [facility] Description: Comp. Metabolic Panel (14)2019-07-04 01:03:00 Test Item Value Reference Range Interpretation Comments Glucose (test code = 2345-7) 262 mg/dL 65-99 H BUN (test code = 3094-0) 27 mg/dL 6-24 H Creatinine (test code = 1.46 mg/dL 0.76-1.27 H 2160-0) eGFR If NonAfricn Am (test 57 mL/min/1.73 >59 L code = 77736-8) eGFR If Africn Am (test code = 66 mL/min/1.73 >59 16073-5) BUN/Creatinine Ratio (test 18 9-20 code = 3097-3) Sodium (test code = 2951-2) 140 mmol/L 134-144 Potassium (test code = 2823-3) 4.4 mmol/L 3.5-5.2 Chloride (test code = 2075-0) 106 mmol/L 96-106 Carbon Dioxide, Total (test 23 mmol/L 20-29 code = 2028-9) Calcium (test code = 59691-0) 8.7 mg/dL 8.7-10.2 Protein, Total (test code = 5.3 g/dL 6.0-8.5 L 2885-2) Albumin (test code = 1751-7) 3.0 g/dL 4.0-5.0 L Globulin, Total (test code = 2.3 g/dL 1.5-4.5 47229-6) A/G Ratio (test code = 1759-0) 1.3 1.2-2.2 Bilirubin, Total (test code = 0.5 mg/dL 0.0-1.2 1974-04) Alkaline Phosphatase (test 95 IU/L 39-117 code = 6768-6) AST (SGOT) (test code = 16 IU/L 0-40 1920-8) ALT (SGPT) (test code = 23 IU/L 0-44 1742-6) [facility] Comp[facility] (14)2019-07-04 01:03:00 Test Item Value Reference Range Interpretation Comments Glucose (test code = 2345-7) 262 mg/dL 65-99 H BUN (test code = 3094-0) 27 mg/dL 6-24 H Creatinine (test code = 1.46 mg/dL 0.76-1.27 H 2160-0) eGFR If NonAfricn Am (test 57 mL/min/1.73 >59 L code = 09134-1) eGFR If Africn Am (test code = 66 mL/min/1.73 >59 83744-7) BUN/Creatinine Ratio (test 18 9-20 code = 3097-3) Sodium (test code = 2951-2) 140 mmol/L 134-144 Potassium (test code = 2823-3) 4.4 mmol/L 3.5-5.2 Chloride (test code = 2075-0) 106 mmol/L 96-106 Carbon Dioxide, Total (test 23 mmol/L 20-29 code = 8-9) Calcium (test code = 42977-5) 8.7 mg/dL 8.7-10.2 Protein, Total (test code = 5.3 g/dL 6.0-8.5 L 2885-2) Albumin (test code = 1751-7) 3.0 g/dL 4.0-5.0 L Globulin, Total (test code = 2.3 g/dL 1.5-4.5 55058-1) A/G Ratio (test code = 1759-0) 1.3 1.2-2.2 Bilirubin, Total (test code = 0.5 mg/dL 0.0-1.2 1974-04) Alkaline Phosphatase (test 95 IU/L 39-117 code = 6768-6) AST (SGOT) (test code = 16 IU/L 0-40 1920-8) ALT (SGPT) (test code = 23 IU/L 0-44 1742-6) [facility] Description: Comp. Metabolic Panel (14)2019-07-04 01:03:00 Test Item Value Reference Range Interpretation Comments Glucose (test code = 2345-7) 262 mg/dL 65-99 H BUN (test code = 3094-0) 27 mg/dL 6-24 H Creatinine (test code = 1.46 mg/dL 0.76-1.27 H 2160-0) eGFR If NonAfricn Am (test 57 mL/min/1.73 >59 L code = 33082-7) eGFR If Africn Am (test code = 66 mL/min/1.73 >59 97553-7) BUN/Creatinine Ratio (test 18 - code = 3097-3) Sodium (test code = 2951-2) 140 mmol/L 134-144 Potassium (test code = 2823-3) 4.4 mmol/L 3.5-5.2 Chloride (test code = 2075-0) 106 mmol/L 96-106 Carbon Dioxide, Total (test 23 mmol/L 20-29 code = 8-9) Calcium (test code = 70237-3) 8.7 mg/dL 8.7-10.2 Protein, Total (test code = 5.3 g/dL 6.0-8.5 L 2885-2) Albumin (test code = 1751-7) 3.0 g/dL 4.0-5.0 L Globulin, Total (test code = 2.3 g/dL 1.5-4.5 07740-3) A/G Ratio (test code = 1759-0) 1.3 1.2-2.2 Bilirubin, Total (test code = 0.5 mg/dL 0.0-1.2 1975-2) Alkaline Phosphatase (test 95 IU/L 39-117 code = 6768-6) AST (SGOT) (test code = 16 IU/L 0-40 1920-8) ALT (SGPT) (test code = 23 IU/L 0-44 1742-6) [facility] Description: Comp. Metabolic Panel (14)2019-07-04 01:03:00 Test Item Value Reference Range Interpretation Comments Glucose (test code = 2345-7) 262 mg/dL 65-99 H BUN (test code = 3094-0) 27 mg/dL 6-24 H Creatinine (test code = 1.46 mg/dL 0.76-1.27 H 2160-0) eGFR If NonAfricn Am (test 57 mL/min/1.73 >59 L code = 98797-4) eGFR If Africn Am (test code = 66 mL/min/1.73 >59 08910-5) BUN/Creatinine Ratio (test 18 9-20 code = 3097-3) Sodium (test code = 2951-2) 140 mmol/L 134-144 Potassium (test code = 2823-3) 4.4 mmol/L 3.5-5.2 Chloride (test code = 2075-0) 106 mmol/L 96-106 Carbon Dioxide, Total (test 23 mmol/L 20-29 code = 2028-9) Calcium (test code = 38884-7) 8.7 mg/dL 8.7-10.2 Protein, Total (test code = 5.3 g/dL 6.0-8.5 L 2885-2) Albumin (test code = 1751-7) 3.0 g/dL 4.0-5.0 L Globulin, Total (test code = 2.3 g/dL 1.5-4.5 93066-2) A/G Ratio (test code = 1759-0) 1.3 1.2-2.2 Bilirubin, Total (test code = 0.5 mg/dL 0.0-1.2 1975-2) Alkaline Phosphatase (test 95 IU/L 39-117 code = 6768-6) AST (SGOT) (test code = 16 IU/L 0-40 1920-8) ALT (SGPT) (test code = 23 IU/L 0-44 1742-6) [facility] Description: Comp. Metabolic Panel (2019-07-04 01:03:00 Test Item Value Reference Range Interpretation Comments Glucose (test code = 2345-7) 262 mg/dL 65-99 H BUN (test code = 3094-0) 27 mg/dL 6-24 H Creatinine (test code = 1.46 mg/dL 0.76-1.27 H 2160-0) eGFR If NonAfricn Am (test 57 mL/min/1.73 >59 L code = 21992-1) eGFR If Africn Am (test code = 66 mL/min/1.73 >59 10815-8) BUN/Creatinine Ratio (test 12-16 code = 3097-3) Sodium (test code = 2951-2) 140 mmol/L 134-144 Potassium (test code = 2823-3) 4.4 mmol/L 3.5-5.2 Chloride (test code = 2075-0) 106 mmol/L 96-106 Carbon Dioxide, Total (test 23 mmol/L 20-29 code = 2028-9) Calcium (test code = 97716-7) 8.7 mg/dL 8.7-10.2 Protein, Total (test code = 5.3 g/dL 6.0-8.5 L 2885-2) Albumin (test code = 1751-7) 3.0 g/dL 4.0-5.0 L Globulin, Total (test code = 2.3 g/dL 1.5-4.5 70407-3) A/G Ratio (test code = 1759-0) 1.3 1.2-2.2 Bilirubin, Total (test code = 0.5 mg/dL 0.0-1.2 1975-2) Alkaline Phosphatase (test 95 IU/L 39-117 code = 6768-6) AST (SGOT) (test code = 16 IU/L 0-40 1920-8) ALT (SGPT) (test code = 23 IU/L 0-44 1742-6) [facility] Description: Comp. Metabolic Panel (142019-07-04 01:03:00 Test Item Value Reference Range Interpretation Comments Glucose (test code = 2345-7) 262 mg/dL 65-99 H BUN (test code = 3094-0) 27 mg/dL 6-24 H Creatinine (test code = 1.46 mg/dL 0.76-1.27 H 2160-0) eGFR If NonAfricn Am (test 57 mL/min/1.73 >59 L code = 99970-4) eGFR If Africn Am (test code = 66 mL/min/1.73 >59 72647-2) BUN/Creatinine Ratio (test 12-16 code = 3097-3) Sodium (test code = 2951-2) 140 mmol/L 134-144 Potassium (test code = 2823-3) 4.4 mmol/L 3.5-5.2 Chloride (test code = 2075-0) 106 mmol/L 96-106 Carbon Dioxide, Total (test 23 mmol/L 20-29 code = 8-9) Calcium (test code = 03500-8) 8.7 mg/dL 8.7-10.2 Protein, Total (test code = 5.3 g/dL 6.0-8.5 L 2885-2) Albumin (test code = 1751-7) 3.0 g/dL 4.0-5.0 L Globulin, Total (test code = 2.3 g/dL 1.5-4.5 69462-6) A/G Ratio (test code = 1759-0) 1.3 1.2-2.2 Bilirubin, Total (test code = 0.5 mg/dL 0.0-1.2 1975-2) Alkaline Phosphatase (test 95 IU/L 39-117 code = 6768-6) AST (SGOT) (test code = 16 IU/L 0-40 1920-8) ALT (SGPT) (test code = 23 IU/L 0-44 1742-6) [facility] Description: Comp. Metabolic Panel (14)2019-07-04 01:03:00 Test Item Value Reference Range Interpretation Comments Glucose (test code = 2345-7) 262 mg/dL 65-99 H BUN (test code = 3094-0) 27 mg/dL 6-24 H Creatinine (test code = 1.46 mg/dL 0.76-1.27 H 2160-0) eGFR If NonAfricn Am (test 57 mL/min/1.73 >59 L code = 30663-6) eGFR If Africn Am (test code = 66 mL/min/1.73 >59 88113-2) BUN/Creatinine Ratio (test 18 9-20 code = 3097-3) Sodium (test code = 2951-2) 140 mmol/L 134-144 Potassium (test code = 2823-3) 4.4 mmol/L 3.5-5.2 Chloride (test code = 2075-0) 106 mmol/L 96-106 Carbon Dioxide, Total (test 23 mmol/L - code = 2027-9) Calcium (test code = 75362-9) 8.7 mg/dL 8.7-10.2 Protein, Total (test code = 5.3 g/dL 6.0-8.5 L 2885-2) Albumin (test code = 1751-7) 3.0 g/dL 4.0-5.0 L Globulin, Total (test code = 2.3 g/dL 1.5-4.5 87980-5) A/G Ratio (test code = 1759-0) 1.3 1.2-2.2 Bilirubin, Total (test code = 0.5 mg/dL 0.0-1.2 1975-2) Alkaline Phosphatase (test 95 IU/L 39-117 code = 6768-6) AST (SGOT) (test code = 16 IU/L 0-40 1920-8) ALT (SGPT) (test code = 23 IU/L 0-44 1742-6) [facility] Description: Comp. Metabolic Panel (14)2019-07-04 01:03:00 Test Item Value Reference Range Interpretation Comments Glucose (test code = 2345-7) 262 mg/dL 65-99 H BUN (test code = 3094-0) 27 mg/dL 6-24 H Creatinine (test code = 1.46 mg/dL 0.76-1.27 H 2160-0) eGFR If NonAfricn Am (test 57 mL/min/1.73 >59 L code = 55584-3) eGFR If Africn Am (test code = 66 mL/min/1.73 >59 23530-2) BUN/Creatinine Ratio (test 18 12-16 code = 3097-3) Sodium (test code = 2951-2) 140 mmol/L 134-144 Potassium (test code = 2823-3) 4.4 mmol/L 3.5-5.2 Chloride (test code = 2075-0) 106 mmol/L 96-106 Carbon Dioxide, Total (test 23 mmol/L -29 code = 2027-9) Calcium (test code = 33589-0) 8.7 mg/dL 8.7-10.2 Protein, Total (test code = 5.3 g/dL 6.0-8.5 L 2885-2) Albumin (test code = 1751-7) 3.0 g/dL 4.0-5.0 L Globulin, Total (test code = 2.3 g/dL 1.5-4.5 38107-7) A/G Ratio (test code = 1759-0) 1.3 1.2-2.2 Bilirubin, Total (test code = 0.5 mg/dL 0.0-1.2 1975-2) Alkaline Phosphatase (test 95 IU/L 39-117 code = 6768-6) AST (SGOT) (test code = 16 IU/L 0-40 1920-8) ALT (SGPT) (test code = 23 IU/L 0-44 1742-6) [facility] Description: Comp. Metabolic Panel (14)2019-07-04 01:03:00 Test Item Value Reference Range Interpretation Comments Glucose (test code = 2345-7) 262 mg/dL 65-99 H BUN (test code = 3094-0) 27 mg/dL 6-24 H Creatinine (test code = 1.46 mg/dL 0.76-1.27 H 2160-0) eGFR If NonAfricn Am (test 57 mL/min/1.73 >59 L code = 03747-1) eGFR If Africn Am (test code = 66 mL/min/1.73 >59 22905-7) BUN/Creatinine Ratio (test 18 9-20 code = 3097-3) Sodium (test code = 2951-2) 140 mmol/L 134-144 Potassium (test code = 2823-3) 4.4 mmol/L 3.5-5.2 Chloride (test code = 2075-0) 106 mmol/L 96-106 Carbon Dioxide, Total (test 23 mmol/L 20-29 code = 2028-9) Calcium (test code = 12899-4) 8.7 mg/dL 8.7-10.2 Protein, Total (test code = 5.3 g/dL 6.0-8.5 L 2885-2) Albumin (test code = 1751-7) 3.0 g/dL 4.0-5.0 L Globulin, Total (test code = 2.3 g/dL 1.5-4.5 34884-0) A/G Ratio (test code = 1759-0) 1.3 1.2-2.2 Bilirubin, Total (test code = 0.5 mg/dL 0.0-1.2 1974-2) Alkaline Phosphatase (test 95 IU/L 39-117 code = 6768-6) AST (SGOT) (test code = 16 IU/L 0-40 1920-8) ALT (SGPT) (test code = 23 IU/L 0-44 1742-6) [facility]: [facility] (2019-07-04 01:03:00 Test Item Value Reference Range Interpretation Comments Glucose (test code = 2345-7) 262 mg/dL 65-99 H BUN (test code = 3094-0) 27 mg/dL 6-24 H Creatinine (test code = 1.46 mg/dL 0.76-1.27 H 2160-0) eGFR If NonAfricn Am (test 57 mL/min/1.73 >59 L code = 09092-9) eGFR If Africn Am (test code = 66 mL/min/1.73 >59 77885-9) BUN/Creatinine Ratio (test 18 9-20 code = 3097-3) Sodium (test code = 2951-2) 140 mmol/L 134-144 Potassium (test code = 2823-3) 4.4 mmol/L 3.5-5.2 Chloride (test code = 2075-0) 106 mmol/L 96-106 Carbon Dioxide, Total (test 23 mmol/L 20-29 code = 2028-9) Calcium (test code = 27901-7) 8.7 mg/dL 8.7-10.2 Protein, Total (test code = 5.3 g/dL 6.0-8.5 L 2885-2) Albumin (test code = 1751-7) 3.0 g/dL 4.0-5.0 L Globulin, Total (test code = 2.3 g/dL 1.5-4.5 25706-7) A/G Ratio (test code = 1759-0) 1.3 1.2-2.2 Bilirubin, Total (test code = 0.5 mg/dL 0.0-1.2 1974-2) Alkaline Phosphatase (test 95 IU/L 39-117 code = 6768-6) AST (SGOT) (test code = 16 IU/L 0-40 1920-8) ALT (SGPT) (test code = 23 IU/L 0-44 1742-6) [facility] Description: Comp. Metabolic Panel (14)2019-07-04 01:03:00 Test Item Value Reference Range Interpretation Comments Glucose (test code = 2345-7) 262 mg/dL 65-99 H BUN (test code = 3094-0) 27 mg/dL 6-24 H Creatinine (test code = 1.46 mg/dL 0.76-1.27 H 2160-0) eGFR If NonAfricn Am (test 57 mL/min/1.73 >59 L code = 51567-9) eGFR If Africn Am (test code = 66 mL/min/1.73 >59 90832-5) BUN/Creatinine Ratio (test 18 9-20 code = 3097-3) Sodium (test code = 2951-2) 140 mmol/L 134-144 Potassium (test code = 2823-3) 4.4 mmol/L 3.5-5.2 Chloride (test code = 2075-0) 106 mmol/L 96-106 Carbon Dioxide, Total (test 23 mmol/L 20-29 code = 8-9) Calcium (test code = 48620-0) 8.7 mg/dL 8.7-10.2 Protein, Total (test code = 5.3 g/dL 6.0-8.5 L 2885-2) Albumin (test code = 1751-7) 3.0 g/dL 4.0-5.0 L Globulin, Total (test code = 2.3 g/dL 1.5-4.5 58231-4) A/G Ratio (test code = 1759-0) 1.3 1.2-2.2 Bilirubin, Total (test code = 0.5 mg/dL 0.0-1.2 1975-2) Alkaline Phosphatase (test 95 IU/L 39-117 code = 6768-6) AST (SGOT) (test code = 16 IU/L 0-40 1920-8) ALT (SGPT) (test code = 23 IU/L 0-44 1742-6) [facility] Description: Comp. Metabolic Panel (14)2019-07-04 01:03:00 Test Item Value Reference Range Interpretation Comments Glucose (test code = 2345-7) 262 mg/dL 65-99 H BUN (test code = 3094-0) 27 mg/dL 6-24 H Creatinine (test code = 1.46 mg/dL 0.76-1.27 H 2160-0) eGFR If NonAfricn Am (test 57 mL/min/1.73 >59 L code = 62540-3) eGFR If Africn Am (test code = 66 mL/min/1.73 >59 66220-1) BUN/Creatinine Ratio (test 18 9-20 code = 3097-3) Sodium (test code = 2951-2) 140 mmol/L 134-144 Potassium (test code = 2823-3) 4.4 mmol/L 3.5-5.2 Chloride (test code = 2075-0) 106 mmol/L 96-106 Carbon Dioxide, Total (test 23 mmol/L 20-29 code = 2028-9) Calcium (test code = 95422-5) 8.7 mg/dL 8.7-10.2 Protein, Total (test code = 5.3 g/dL 6.0-8.5 L 2885-2) Albumin (test code = 1751-7) 3.0 g/dL 4.0-5.0 L Globulin, Total (test code = 2.3 g/dL 1.5-4.5 75440-3) A/G Ratio (test code = 1759-0) 1.3 1.2-2.2 Bilirubin, Total (test code = 0.5 mg/dL 0.0-1.2 1975-2) Alkaline Phosphatase (test 95 IU/L 39-117 code = 6768-6) AST (SGOT) (test code = 16 IU/L 0-40 1920-8) ALT (SGPT) (test code = 23 IU/L 0-44 1742-6) [facility] Description: Comp. Metabolic Panel ()2019-07-04 01:03:00 Test Item Value Reference Range Interpretation Comments Glucose (test code = 2345-7) 262 mg/dL 65-99 H BUN (test code = 3094-0) 27 mg/dL 6-24 H Creatinine (test code = 1.46 mg/dL 0.76-1.27 H 2160-0) eGFR If NonAfricn Am (test 57 mL/min/1.73 >59 L code = 34616-0) eGFR If Africn Am (test code = 66 mL/min/1.73 >59 54463-5) BUN/Creatinine Ratio (test 18 9-20 code = 3097-3) Sodium (test code = 2951-2) 140 mmol/L 134-144 Potassium (test code = 2823-3) 4.4 mmol/L 3.5-5.2 Chloride (test code = 2075-0) 106 mmol/L 96-106 Carbon Dioxide, Total (test 23 mmol/L 20-29 code = 2028-9) Calcium (test code = 00688-3) 8.7 mg/dL 8.7-10.2 Protein, Total (test code = 5.3 g/dL 6.0-8.5 L 2885-2) Albumin (test code = 1751-7) 3.0 g/dL 4.0-5.0 L Globulin, Total (test code = 2.3 g/dL 1.5-4.5 48831-9) A/G Ratio (test code = 1759-0) 1.3 1.2-2.2 Bilirubin, Total (test code = 0.5 mg/dL 0.0-1.2 1975-2) Alkaline Phosphatase (test 95 IU/L 39-117 code = 6768-6) AST (SGOT) (test code = 16 IU/L 0-40 1920-8) ALT (SGPT) (test code = 23 IU/L 0-44 1742-6) [facility] Description: Comp. Metabolic Panel (14)2019-07-04 01:03:00 Test Item Value Reference Range Interpretation Comments Glucose (test code = 2345-7) 262 mg/dL 65-99 H BUN (test code = 3094-0) 27 mg/dL 6-24 H Creatinine (test code = 1.46 mg/dL 0.76-1.27 H 2160-0) eGFR If NonAfricn Am (test 57 mL/min/1.73 >59 L code = 82062-5) eGFR If Africn Am (test code = 66 mL/min/1.73 >59 40341-1) BUN/Creatinine Ratio (test 18 9-20 code = 3097-3) Sodium (test code = 2951-2) 140 mmol/L 134-144 Potassium (test code = 2823-3) 4.4 mmol/L 3.5-5.2 Chloride (test code = 2075-0) 106 mmol/L 96-106 Carbon Dioxide, Total (test 23 mmol/L 20-29 code = 2028-9) Calcium (test code = 18874-0) 8.7 mg/dL 8.7-10.2 Protein, Total (test code = 5.3 g/dL 6.0-8.5 L 2885-2) Albumin (test code = 1751-7) 3.0 g/dL 4.0-5.0 L Globulin, Total (test code = 2.3 g/dL 1.5-4.5 54737-0) A/G Ratio (test code = 1759-0) 1.3 1.2-2.2 Bilirubin, Total (test code = 0.5 mg/dL 0.0-1.2 1974-2) Alkaline Phosphatase (test 95 IU/L 39-117 code = 6768-6) AST (SGOT) (test code = 16 IU/L 0-40 1920-8) ALT (SGPT) (test code = 23 IU/L 0-44 1742-6) [facility] Description: Hemoglobin A1c/Hemoglobin.total in Blood 2019-04-05 09:29:00 Test Item Value Reference Range Interpretation Comments Hemoglobin A1c (test code 9.9 % 4.8-5.6 H = 4548-4) . Prediabetes: 5. 7 - 6.4 Diabetes : >6.4 Glycemic control for adults with diabetes: <7.0

P erformed by:
[facility] [place] ()

[facility] Description: Hemoglobin A1c/Hemoglobin.total in Blood 2019-04-05 09:29:00 Test Item Value Reference Range Interpretation Comments Hemoglobin A1c (test code 9.9 % 4.8-5.6 H = 4548-4) . Prediabetes: 5. 7 - 6.4 Diabetes : >6.4 Glycemic control for adults with diabetes: <7.0

P erformed by:
[facility] ([place])

[facility] Description: Hemoglobin A1c/Hemoglobin.total in Blood 2019-04-05 09:29:00 Test Item Value Reference Range Interpretation Comments Hemoglobin A1c (test code 9.9 % 4.8-5.6 H = 4548-4) . Prediabetes: 5. 7 - 6.4 Diabetes : >6.4 Glycemic control for adults with diabetes: <7.0

P erformed by:
[facility] ([place])

[facility] Description: Hemoglobin A1c/Hemoglobin.total in Blood 2019-04-05 09:29:00 Test Item Value Reference Range Interpretation Comments Hemoglobin A1c (test code 9.9 % 4.8-5.6 H = 4548-4) . Prediabetes: 5. 7 - 6.4 Diabetes : >6.4 Glycemic control for adults with diabetes: <7.0

P erformed by:
[facility] ([place])

[facility] Description: Hemoglobin A1c/Hemoglobin.total in Blood 2019-04-05 09:29:00 Test Item Value Reference Range Interpretation Comments Hemoglobin A1c (test code 9.9 % 4.8-5.6 H = 4548-4) . Prediabetes: 5. 7 - 6.4 Diabetes : >6.4 Glycemic control for adults with diabetes: <7.0

P erformed by:
[facility] ([place])

[facility] Description: Hemoglobin A1c/Hemoglobin.total in Blood 2019-04-05 09:29:00 Test Item Value Reference Range Interpretation Comments Hemoglobin A1c (test code 9.9 % 4.8-5.6 H = 4548-4) . Prediabetes: 5. 7 - 6.4 Diabetes : >6.4 Glycemic control for adults with diabetes: <7.0

P erformed by:
[facility] ([place])

[facility] Description: Hemoglobin A1c/Hemoglobin.total in Blood 2019-04-05 09:29:00 Test Item Value Reference Range Interpretation Comments Hemoglobin A1c (test code 9.9 % 4.8-5.6 H = 4548-4) . Prediabetes: 5. 7 - 6.4 Diabetes : >6.4 Glycemic control for adults with diabetes: <7.0

P erformed by:
[facility] ([place])

[facility] Description: Hemoglobin A1c/Hemoglobin.total in Blood 2019-04-05 09:29:00 Test Item Value Reference Range Interpretation Comments Hemoglobin A1c (test code 9.9 % 4.8-5.6 H = 4548-4) . Prediabetes: 5. 7 - 6.4 Diabetes : >6.4 Glycemic control for adults with diabetes: <7.0

P erformed by:
[facility] ([place])

[facility] Description: Hemoglobin A1c/Hemoglobin.total in Blood 2019-04-05 09:29:00 Test Item Value Reference Range Interpretation Comments Hemoglobin A1c (test code 9.9 % 4.8-5.6 H = 4548-4) . Prediabetes: 5. 7 - 6.4 Diabetes : >6.4 Glycemic control for adults with diabetes: <7.0

P erformed by:
[facility] ([place])

[facility] Description: Hemoglobin A1c/Hemoglobin.total in Blood 2019-04-05 09:29:00 Test Item Value Reference Range Interpretation Comments Hemoglobin A1c (test code 9.9 % 4.8-5.6 H = 4548-4) . Prediabetes: 5. 7 - 6.4 Diabetes : >6.4 Glycemic control for adults with diabetes: <7.0

P erformed by:
[facility] ([place])

[facility] Description: Hemoglobin A1c/Hemoglobin.total in Blood 2019-04-05 09:29:00 Test Item Value Reference Range Interpretation Comments Hemoglobin A1c (test code 9.9 % 4.8-5.6 H = 4548-4) . Prediabetes: 5. 7 - 6.4 Diabetes : >6.4 Glycemic control for adults with diabetes: <7.0

P erformed by:
[facility] ([place])

[facility] Description: Hemoglobin A1c/Hemoglobin.total in Blood 2019-04-05 09:29:00 Test Item Value Reference Range Interpretation Comments Hemoglobin A1c (test code 9.9 % 4.8-5.6 H = 4548-4) . Prediabetes: 5. 7 - 6.4 Diabetes : >6.4 Glycemic control for adults with diabetes: <7.0

P erformed by:
[facility] ([place])

[facility] Description: Hemoglobin A1c/Hemoglobin.total in Blood 2019-04-05 09:29:00 Test Item Value Reference Range Interpretation Comments Hemoglobin A1c (test code 9.9 % 4.8-5.6 H = 4548-4) . Prediabetes: 5. 7 - 6.4 Diabetes : >6.4 Glycemic control for adults with diabetes: <7.0

P erformed by:
[facility] ([place])

[facility] Description: Hemoglobin A1c/Hemoglobin.total in Blood 2019-04-05 09:29:00 Test Item Value Reference Range Interpretation Comments Hemoglobin A1c (test code 9.9 % 4.8-5.6 H = 4548-4) . Prediabetes: 5. 7 - 6.4 Diabetes : >6.4 Glycemic control for adults with diabetes: <7.0

P erformed by:
[facility] ([place])

[facility] Description: Hemoglobin A1c/Hemoglobin.total in Blood 2019-04-05 09:29:00 Test Item Value Reference Range Interpretation Comments Hemoglobin A1c (test code 9.9 % 4.8-5.6 H = 4548-4) . Prediabetes: 5. 7 - 6.4 Diabetes : >6.4 Glycemic control for adults with diabetes: <7.0

P erformed by:
[facility] ([place])

[facility] Description: Hemoglobin A1c/Hemoglobin.total in Blood 2019-04-05 09:29:00 Test Item Value Reference Range Interpretation Comments Hemoglobin A1c (test code 9.9 % 4.8-5.6 H = 4548-4) . Prediabetes: 5. 7 - 6.4 Diabetes : >6.4 Glycemic control for adults with diabetes: <7.0

P erformed by:
[facility] ([place])

[facility] Description: Hemoglobin A1c/Hemoglobin.total in Blood 2019-04-05 09:29:00 Test Item Value Reference Range Interpretation Comments Hemoglobin A1c (test code 9.9 % 4.8-5.6 H = 4548-4) . Prediabetes: 5. 7 - 6.4 Diabetes : >6.4 Glycemic control for adults with diabetes: <7.0

P erformed by:
[facility] ([place])

[facility] Description: Hemoglobin A1c/Hemoglobin.total in Blood 2019-04-05 09:29:00 Test Item Value Reference Range Interpretation Comments Hemoglobin A1c (test code 9.9 % 4.8-5.6 H = 4548-4) . Prediabetes: 5. 7 - 6.4 Diabetes : >6.4 Glycemic control for adults with diabetes: <7.0

P erformed by:
[facility] ([place])

[facility] Description: Hemoglobin A1c/Hemoglobin.total in Blood 2019-04-05 09:29:00 Test Item Value Reference Range Interpretation Comments Hemoglobin A1c (test code 9.9 % 4.8-5.6 H = 4548-4) . Prediabetes: 5. 7 - 6.4 Diabetes : >6.4 Glycemic control for adults with diabetes: <7.0

P erformed by:
[facility] ([place])

[facility] Description: Hemoglobin A1c/Hemoglobin.total in Blood 2019-04-05 09:29:00 Test Item Value Reference Range Interpretation Comments Hemoglobin A1c (test code 9.9 % 4.8-5.6 H = 4548-4) . Prediabetes: 5. 7 - 6.4 Diabetes : >6.4 Glycemic control for adults with diabetes: <7.0

P erformed by:
[facility] ([place])

[facility] Description: Hemoglobin A1c/Hemoglobin.total in Blood 2019-04-05 09:29:00 Test Item Value Reference Range Interpretation Comments Hemoglobin A1c (test code 9.9 % 4.8-5.6 H = 4548-4) . Prediabetes: 5. 7 - 6.4 Diabetes : >6.4 Glycemic control for adults with diabetes: <7.0

P erformed by:
[facility] ([place])

[facility] Description: Hemoglobin A1c/Hemoglobin.total in Blood 2019-04-05 09:29:00 Test Item Value Reference Range Interpretation Comments Hemoglobin A1c (test code 9.9 % 4.8-5.6 H = 4548-4) . Prediabetes: 5. 7 - 6.4 Diabetes : >6.4 Glycemic control for adults with diabetes: <7.0

P erformed by:
[facility] ([place])

[facility] Description: Hemoglobin A1c/Hemoglobin.total in Blood 2019-04-05 09:29:00 Test Item Value Reference Range Interpretation Comments Hemoglobin A1c (test code 9.9 % 4.8-5.6 H = 4548-4) . Prediabetes: 5. 7 - 6.4 Diabetes : >6.4 Glycemic control for adults with diabetes: <7.0

P erformed by:
[facility] ([place])

[facility] Description: Hemoglobin A1c/Hemoglobin.total in Blood 2019-04-05 09:29:00 Test Item Value Reference Range Interpretation Comments Hemoglobin A1c (test code 9.9 % 4.8-5.6 H = 4548-4) . Prediabetes: 5. 7 - 6.4 Diabetes : >6.4 Glycemic control for adults with diabetes: <7.0

P erformed by:
[facility] ([place])

[facility] Description: Hemoglobin A1c/Hemoglobin.total in Blood 2019-04-05 09:29:00 Test Item Value Reference Range Interpretation Comments Hemoglobin A1c (test code 9.9 % 4.8-5.6 H = 4548-4) . Prediabetes: 5. 7 - 6.4 Diabetes : >6.4 Glycemic control for adults with diabetes: <7.0

P erformed by:
[facility] ([place])

[facility] Description: Hemoglobin A1c/Hemoglobin.total in Blood 2019-04-05 09:29:00 Test Item Value Reference Range Interpretation Comments Hemoglobin A1c (test code 9.9 % 4.8-5.6 H = 4548-4) . Prediabetes: 5. 7 - 6.4 Diabetes : >6.4 Glycemic control for adults with diabetes: <7.0

P erformed by:
[facility] ()

[facility] Description: Hemoglobin A1c/Hemoglobin.total in Blood 2019-04-05 09:29:00 Test Item Value Reference Range Interpretation Comments Hemoglobin A1c (test code 9.9 % 4.8-5.6 H = 4548-4) . Prediabetes: 5. 7 - 6.4 Diabetes : >6.4 Glycemic control for adults with diabetes: <7.0

P erformed by:
[facility] ()

[facility] Description: Lipid [id number] 02:47:00 Test Item Value Reference Range Interpretation Comments Cholesterol, Total (test code = 392 mg/dL 100-199 H 3-3) Triglycerides (test code = 2571-8) 159 mg/dL 0-149 H HDL Cholesterol (test code = 42 mg/dL >39 5-9) VLDL Cholesterol Renuka (test code = 32 mg/dL 5-40 29301-2) LDL Cholesterol Calc (test code = 318 mg/dL 0-99 H 68477-8) Comment: (test code = 80014-8) [facility] Description: Lipid [id number] 02:47:00 Test Item Value Reference Range Interpretation Comments Cholesterol, Total (test code = 392 mg/dL 100-199 H 2093-3) Triglycerides (test code = 2571-8) 159 mg/dL 0-149 H HDL Cholesterol (test code = 42 mg/dL >39 2085-9) VLDL Cholesterol Renuka (test code = 32 mg/dL 5-40 34190-3) LDL Cholesterol Calc (test code = 318 mg/dL 0-99 H 58460-2) Comment: (test code = 74376-6) [facility] Description: Lipid [id number] 02:47:00 Test Item Value Reference Range Interpretation Comments Cholesterol, Total (test code = 392 mg/dL 100-199 H 2093-3) Triglycerides (test code = 2571-8) 159 mg/dL 0-149 H HDL Cholesterol (test code = 42 mg/dL >39 2085-9) VLDL Cholesterol Renuka (test code = 32 mg/dL 5-40 46460-2) LDL Cholesterol Calc (test code = 318 mg/dL 0-99 H 75583-3) Comment: (test code = 99866-3) [facility] Description: Lipid [id number] 02:47:00 Test Item Value Reference Range Interpretation Comments Cholesterol, Total (test code = 392 mg/dL 100-199 H 2093-3) Triglycerides (test code = 2571-8) 159 mg/dL 0-149 H HDL Cholesterol (test code = 42 mg/dL >39 2085-9) VLDL Cholesterol Renuka (test code = 32 mg/dL 5-40 03408-6) LDL Cholesterol Calc (test code = 318 mg/dL 0-99 H 11463-4) Comment: (test code = 17496-5) [facility] Description: Lipid [id number] 02:47:00 Test Item Value Reference Range Interpretation Comments Cholesterol, Total (test code = 392 mg/dL 100-199 H 2093-3) Triglycerides (test code = 2571-8) 159 mg/dL 0-149 H HDL Cholesterol (test code = 42 mg/dL >39 2085-9) VLDL Cholesterol Renuka (test code = 32 mg/dL 5-40 89063-5) LDL Cholesterol Calc (test code = 318 mg/dL 0-99 H 97241-9) Comment: (test code = 03240-7) [facility] Description: Lipid [id number] 02:47:00 Test Item Value Reference Range Interpretation Comments Cholesterol, Total (test code = 392 mg/dL 100-199 H 2093-3) Triglycerides (test code = 2571-8) 159 mg/dL 0-149 H HDL Cholesterol (test code = 42 mg/dL >39 2085-9) VLDL Cholesterol Renuka (test code = 32 mg/dL 5-40 99456-8) LDL Cholesterol Calc (test code = 318 mg/dL 0-99 H 44799-9) Comment: (test code = 60878-6) [facility] Description: Lipid [id number] 02:47:00 Test Item Value Reference Range Interpretation Comments Cholesterol, Total (test code = 392 mg/dL 100-199 H 2093-3) Triglycerides (test code = 2571-8) 159 mg/dL 0-149 H HDL Cholesterol (test code = 42 mg/dL >39 2085-9) VLDL Cholesterol Renuka (test code = 32 mg/dL 5-40 10857-2) LDL Cholesterol Calc (test code = 318 mg/dL 0-99 H 27888-9) Comment: (test code = 20552-5) [facility] Description: Lipid [id number] 02:47:00 Test Item Value Reference Range Interpretation Comments Cholesterol, Total (test code = 392 mg/dL 100-199 H 2093-3) Triglycerides (test code = 2571-8) 159 mg/dL 0-149 H HDL Cholesterol (test code = 42 mg/dL >39 2085-9) VLDL Cholesterol Renuka (test code = 32 mg/dL 5-40 74070-7) LDL Cholesterol Calc (test code = 318 mg/dL 0-99 H 32935-0) Comment: (test code = 93958-8) [facility] Description: Lipid [id number] 02:47:00 Test Item Value Reference Range Interpretation Comments Cholesterol, Total (test code = 392 mg/dL 100-199 H 2093-3) Triglycerides (test code = 2571-8) 159 mg/dL 0-149 H HDL Cholesterol (test code = 42 mg/dL >39 2085-9) VLDL Cholesterol Renuka (test code = 32 mg/dL 5-40 01493-8) LDL Cholesterol Calc (test code = 318 mg/dL 0-99 H 71294-6) Comment: (test code = 31730-1) [facility] Description: Lipid [id number] 02:47:00 Test Item Value Reference Range Interpretation Comments Cholesterol, Total (test code = 392 mg/dL 100-199 H 2093-3) Triglycerides (test code = 2571-8) 159 mg/dL 0-149 H HDL Cholesterol (test code = 42 mg/dL >39 2085-9) VLDL Cholesterol Renuka (test code = 32 mg/dL 5-40 31502-1) LDL Cholesterol Calc (test code = 318 mg/dL 0-99 H 02251-0) Comment: (test code = 59581-6) [facility] Description: Lipid [id number] 02:47:00 Test Item Value Reference Range Interpretation Comments Cholesterol, Total (test code = 392 mg/dL 100-199 H 2093-3) Triglycerides (test code = 2571-8) 159 mg/dL 0-149 H HDL Cholesterol (test code = 42 mg/dL >39 2085-9) VLDL Cholesterol Renuka (test code = 32 mg/dL 5-40 89036-5) LDL Cholesterol Calc (test code = 318 mg/dL 0-99 H 49728-7) Comment: (test code = 75153-9) [facility] Description: Lipid [id number] 02:47:00 Test Item Value Reference Range Interpretation Comments Cholesterol, Total (test code = 392 mg/dL 100-199 H 2093-3) Triglycerides (test code = 2571-8) 159 mg/dL 0-149 H HDL Cholesterol (test code = 42 mg/dL >39 2085-9) VLDL Cholesterol Renuka (test code = 32 mg/dL 5-40 06363-1) LDL Cholesterol Calc (test code = 318 mg/dL 0-99 H 36634-0) Comment: (test code = 84403-8) [facility] Description: Lipid [id number] 02:47:00 Test Item Value Reference Range Interpretation Comments Cholesterol, Total (test code = 392 mg/dL 100-199 H 2093-3) Triglycerides (test code = 2571-8) 159 mg/dL 0-149 H HDL Cholesterol (test code = 42 mg/dL >39 2085-9) VLDL Cholesterol Renuka (test code = 32 mg/dL 5-40 81999-9) LDL Cholesterol Calc (test code = 318 mg/dL 0-99 H 69691-1) Comment: (test code = 53710-7) [facility] Description: Lipid [id number] 02:47:00 Test Item Value Reference Range Interpretation Comments Cholesterol, Total (test code = 392 mg/dL 100-199 H 2093-3) Triglycerides (test code = 2571-8) 159 mg/dL 0-149 H HDL Cholesterol (test code = 42 mg/dL >39 2085-9) VLDL Cholesterol Renuka (test code = 32 mg/dL 5-40 73334-1) LDL Cholesterol Calc (test code = 318 mg/dL 0-99 H 45784-6) Comment: (test code = 20630-2) [facility] Description: Lipid [id number] 02:47:00 Test Item Value Reference Range Interpretation Comments Cholesterol, Total (test code = 392 mg/dL 100-199 H 2093-3) Triglycerides (test code = 2571-8) 159 mg/dL 0-149 H HDL Cholesterol (test code = 42 mg/dL >39 2085-9) VLDL Cholesterol Renuka (test code = 32 mg/dL 5-40 83234-1) LDL Cholesterol Calc (test code = 318 mg/dL 0-99 H 57400-0) Comment: (test code = 34745-6) [facility] Description: Lipid [id number] 02:47:00 Test Item Value Reference Range Interpretation Comments Cholesterol, Total (test code = 392 mg/dL 100-199 H 2093-3) Triglycerides (test code = 2571-8) 159 mg/dL 0-149 H HDL Cholesterol (test code = 42 mg/dL >39 2085-9) VLDL Cholesterol Renuka (test code = 32 mg/dL 5-40 37958-4) LDL Cholesterol Calc (test code = 318 mg/dL 0-99 H 59863-7) Comment: (test code = 27375-3) [facility] Description: Lipid [id number] 02:47:00 Test Item Value Reference Range Interpretation Comments Cholesterol, Total (test code = 392 mg/dL 100-199 H 2093-3) Triglycerides (test code = 2571-8) 159 mg/dL 0-149 H HDL Cholesterol (test code = 42 mg/dL >39 2085-9) VLDL Cholesterol Renuka (test code = 32 mg/dL 5-40 64040-9) LDL Cholesterol Calc (test code = 318 mg/dL 0-99 H 56422-2) Comment: (test code = 14590-8) [employer] [facility] Description: Lipid [id number] 02:47:00 Test Item Value Reference Range Interpretation Comments Cholesterol, Total (test code = 392 mg/dL 100-199 H 2093-3) Triglycerides (test code = 2571-8) 159 mg/dL 0-149 H HDL Cholesterol (test code = 42 mg/dL >39 2085-9) VLDL Cholesterol Renuka (test code = 32 mg/dL 5-40 59796-0) LDL Cholesterol Calc (test code = 318 mg/dL 0-99 H 83218-5) Comment: (test code = 78370-5) [facility] Description: Lipid [id number] 02:47:00 Test Item Value Reference Range Interpretation Comments Cholesterol, Total (test code = 392 mg/dL 100-199 H 2093-3) Triglycerides (test code = 2571-8) 159 mg/dL 0-149 H HDL Cholesterol (test code = 42 mg/dL >39 2085-9) VLDL Cholesterol Renuka (test code = 32 mg/dL 5-40 63876-4) LDL Cholesterol Calc (test code = 318 mg/dL 0-99 H 10144-4) Comment: (test code = 47605-8) [facility] Description: Lipid [id number] 02:47:00 Test Item Value Reference Range Interpretation Comments Cholesterol, Total (test code = 392 mg/dL 100-199 H 2093-3) Triglycerides (test code = 2571-8) 159 mg/dL 0-149 H HDL Cholesterol (test code = 42 mg/dL >39 2085-9) VLDL Cholesterol Renuka (test code = 32 mg/dL 5-40 59324-4) LDL Cholesterol Calc (test code = 318 mg/dL 0-99 H 00425-9) Comment: (test code = 34592-3) [facility] Description: Lipid [id number] 02:47:00 Test Item Value Reference Range Interpretation Comments Cholesterol, Total (test code = 392 mg/dL 100-199 H 2093-3) Triglycerides (test code = 2571-8) 159 mg/dL 0-149 H HDL Cholesterol (test code = 42 mg/dL >39 2085-9) VLDL Cholesterol Renuka (test code = 32 mg/dL 5-40 54450-2) LDL Cholesterol Calc (test code = 318 mg/dL 0-99 H 69460-0) Comment: (test code = 55711-3) [facility] Description: Lipid [id number] 02:47:00 Test Item Value Reference Range Interpretation Comments Cholesterol, Total (test code = 392 mg/dL 100-199 H 2093-3) Triglycerides (test code = 2571-8) 159 mg/dL 0-149 H HDL Cholesterol (test code = 42 mg/dL >39 2085-9) VLDL Cholesterol Renuka (test code = 32 mg/dL 5-40 87532-6) LDL Cholesterol Calc (test code = 318 mg/dL 0-99 H 31464-1) Comment: (test code = 67576-6) [facility] Description: Lipid [id number] 02:47:00 Test Item Value Reference Range Interpretation Comments Cholesterol, Total (test code = 392 mg/dL 100-199 H 2093-3) Triglycerides (test code = 2571-8) 159 mg/dL 0-149 H HDL Cholesterol (test code = 42 mg/dL >39 2085-9) VLDL Cholesterol Renuka (test code = 32 mg/dL 5-40 26344-8) LDL Cholesterol Calc (test code = 318 mg/dL 0-99 H 23586-1) Comment: (test code = 76530-7) [facility] Description: Lipid [id number] 02:47:00 Test Item Value Reference Range Interpretation Comments Cholesterol, Total (test code = 392 mg/dL 100-199 H 2093-3) Triglycerides (test code = 2571-8) 159 mg/dL 0-149 H HDL Cholesterol (test code = 42 mg/dL >39 2085-9) VLDL Cholesterol Renuka (test code = 32 mg/dL 5-40 87697-4) LDL Cholesterol Calc (test code = 318 mg/dL 0-99 H 48229-6) Comment: (test code = 85984-2) [facility] Description: Lipid [id number] 02:47:00 Test Item Value Reference Range Interpretation Comments Cholesterol, Total (test code = 392 mg/dL 100-199 H 2093-3) Triglycerides (test code = 2571-8) 159 mg/dL 0-149 H HDL Cholesterol (test code = 42 mg/dL >39 2085-9) VLDL Cholesterol Renuka (test code = 32 mg/dL 5-40 17942-4) LDL Cholesterol Calc (test code = 318 mg/dL 0-99 H 05168-3) Comment: (test code = 33285-4) [facility] Description: Lipid [id number] 02:47:00 Test Item Value Reference Range Interpretation Comments Cholesterol, Total (test code = 392 mg/dL 100-199 H 2093-3) Triglycerides (test code = 2571-8) 159 mg/dL 0-149 H HDL Cholesterol (test code = 42 mg/dL >39 2085-9) VLDL Cholesterol Renuka (test code = 32 mg/dL 5-40 37192-6) LDL Cholesterol Calc (test code = 318 mg/dL 0-99 H 61620-1) Comment: (test code = 33061-2) [facility] Description: Lipid [id number] 02:47:00 Test Item Value Reference Range Interpretation Comments Cholesterol, Total (test code = 392 mg/dL 100-199 H 2093-3) Triglycerides (test code = 2571-8) 159 mg/dL 0-149 H HDL Cholesterol (test code = 42 mg/dL >39 2085-9) VLDL Cholesterol Renuka (test code = 32 mg/dL 5-40 89176-7) LDL Cholesterol Calc (test code = 318 mg/dL 0-99 H 19068-2) Comment: (test code = 98189-0) [facility] Description: Comp. Metabolic Panel (14)2019-04-05 02:37:00 Test Item Value Reference Range Interpretation Comments Glucose (test code = 219 mg/dL 65-99 H 2345-7) BUN (test code = 44 mg/dL 6-24 H 3094-0) Creatinine (test code 1.51 mg/dL 0.76-1.27 H = 2160-0) eGFR If NonAfricn Am 55 mL/min/1.73 >59 L (test code = 34105-0) eGFR If Africn Am 64 mL/min/1.73 >59 (test code = 25893-4) BUN/Creatinine Ratio 29 9-20 H (test code = 3097-3) Sodium (test code = 139 mmol/L 528-881 7972-2) Potassium (test code 4.4 mmol/L 3.5-5.2 = 2823-3) Chloride (test code = 99 mmol/L 96-106 5-0) Carbon Dioxide, Total 28 mmol/L 20-29 (test code = 2027-9) Calcium (test code = 8.9 mg/dL 8.7-10.2 89806-5) Protein, Total (test 6.1 g/dL 6.0-8.5 code [...] Total (test 2.8 g/dL 1.5-4.5 code = 28237-4) A/G Ratio (test code 1.2 1.2-2.2 = 1759-0) Bilirubin, Total 0.5 mg/dL 0.0-1.2 (test code = 1974-2) Alkaline Phosphatase 100 IU/L 39-117 (test code = 6768-6) AST (SGOT) (test code 22 IU/L 0-40 = 1920-8) ALT (SGPT) (test code 27 IU/L 0-44 = 1742-6) [facility] Description: Comp. Metabolic Panel (14)2019-04-05 02:37:00 Test Item Value Reference Range Interpretation Comments Glucose (test code = 219 mg/dL 65-99 H 2345-7) BUN (test code = 44 mg/dL 6-24 H 3094-0) Creatinine (test code 1.51 mg/dL 0.76-1.27 H = 2160-0) eGFR If NonAfricn Am 55 mL/min/1.73 >59 L (test code = 29253-2) eGFR If Africn Am 64 mL/min/1.73 >59 (test code = 45548-2) BUN/Creatinine Ratio 29 9-20 H (test code = 3097-3) Sodium (test code = 139 mmol/L 109-950 9903-2) Potassium (test code 4.4 mmol/L 3.5-5.2 = 2823-3) Chloride (test code = 99 mmol/L 96-106 2075-0) Carbon Dioxide, Total 28 mmol/L 20-29 (test code = 2027-) Calcium (test code = 8.9 mg/dL 8.7-10.2 23265-4) Protein, Total (test 6.1 g/dL 6.0-8.5 code [...] - 4.6

Pe rfo rmed by:
[facility] [place] ([place])

Globulin, Total (test 2.8 g/dL 1.5-4.5 code = 20260-1) A/G Ratio (test code 1.2 1.2-2.2 = 1759-0) Bilirubin, Total 0.5 mg/dL 0.0-1.2 (test code = 1975-2) Alkaline Phosphatase 100 IU/L 39-117 (test code = 6768-6) AST (SGOT) (test code 22 IU/L 0-40 = 1920-8) ALT (SGPT) (test code 27 IU/L 0-44 = 1742-6) [facility] Description: Comp. Metabolic Panel (2019-04-05 02:37:00 Test Item Value Reference Range Interpretation Comments Glucose (test code = 219 mg/dL 65-99 H 2345-7) BUN (test code = 44 mg/dL 6-24 H 3094-0) Creatinine (test code 1.51 mg/dL 0.76-1.27 H = 2160-0) eGFR If NonAfricn Am 55 mL/min/1.73 >59 L (test code = 28109-5) eGFR If Africn Am 64 mL/min/1.73 >59 (test code = 87951-0) BUN/Creatinine Ratio 29 9-20 H (test code = 3097-3) Sodium (test code = 139 mmol/L 764-990 0189-2) Potassium (test code 4.4 mmol/L 3.5-5.2 = 2823-3) Chloride (test code = 99 mmol/L 96-106 2075-0) Carbon Dioxide, Total 28 mmol/L 20-29 (test code = 2027-9) Calcium (test code = 8.9 mg/dL 8.7-10.2 03070-6) Protein, Total (test 6.1 g/dL 6.0-8.5 code [...] - 4.6

Pe rfo rmed by:
[facility] [place] ([place])

Globulin, Total (test 2.8 g/dL 1.5-4.5 code = 14909-1) A/G Ratio (test code 1.2 1.2-2.2 = 1759-0) Bilirubin, Total 0.5 mg/dL 0.0-1.2 (test code = 1975-2) Alkaline Phosphatase 100 IU/L 39-117 (test code = 6768-6) AST (SGOT) (test code 22 IU/L 0-40 = 1920-8) ALT (SGPT) (test code 27 IU/L 0-44 = 1742-6) [facility] Description: Comp. Metabolic Panel (14)2019-04-05 02:37:00 Test Item Value Reference Range Interpretation Comments Glucose (test code = 219 mg/dL 65-99 H 2345-7) BUN (test code = 44 mg/dL 6-24 H 3094-0) Creatinine (test code 1.51 mg/dL 0.76-1.27 H = 2160-0) eGFR If NonAfricn Am 55 mL/min/1.73 >59 L (test code = 65560-5) eGFR If Africn Am 64 mL/min/1.73 >59 (test code = 41053-8) BUN/Creatinine Ratio 29 9-20 H (test code = 3097-3) Sodium (test code = 139 mmol/L 618-209 6402-2) Potassium (test code 4.4 mmol/L 3.5-5.2 = 2823-3) Chloride (test code = 99 mmol/L 96-106 2075-0) Carbon Dioxide, Total 28 mmol/L 20-29 (test code = 2027-9) Calcium (test code = 8.9 mg/dL 8.7-10.2 93642-9) Protein, Total (test 6.1 g/dL 6.0-8.5 code [...] - 4.6

Pe rfo rmed by:
[facility] [place] ([place])

Globulin, Total (test 2.8 g/dL 1.5-4.5 code = 72962-8) A/G Ratio (test code 1.2 1.2-2.2 = 1759-0) Bilirubin, Total 0.5 mg/dL 0.0-1.2 (test code = 1975-2) Alkaline Phosphatase 100 IU/L 39-117 (test code = 6768-6) AST (SGOT) (test code 22 IU/L 0-40 = 1920-8) ALT (SGPT) (test code 27 IU/L 0-44 = 1742-6) [facility] Description: Comp. Metabolic Panel (2019-04-05 02:37:00 Test Item Value Reference Range Interpretation Comments Glucose (test code = 219 mg/dL 65-99 H 2345-7) BUN (test code = 44 mg/dL 6-24 H 3094-0) Creatinine (test code 1.51 mg/dL 0.76-1.27 H = 2160-0) eGFR If NonAfricn Am 55 mL/min/1.73 >59 L (test code = 97983-4) eGFR If Africn Am 64 mL/min/1.73 >59 (test code = 45564-8) BUN/Creatinine Ratio 29 9-20 H (test code = 3097-3) Sodium (test code = 139 mmol/L 703-971 0211-2) Potassium (test code 4.4 mmol/L 3.5-5.2 = 2823-3) Chloride (test code = 99 mmol/L 96-106 2075-0) Carbon Dioxide, Total 28 mmol/L 20-29 (test code = 2027-9) Calcium (test code = 8.9 mg/dL 8.7-10.2 52271-2) Protein, Total (test 6.1 g/dL 6.0-8.5 code [...] Total (test 2.8 g/dL 1.5-4.5 code = 33882-0) A/G Ratio (test code 1.2 1.2-2.2 = 1759-0) Bilirubin, Total 0.5 mg/dL 0.0-1.2 (test code = 1975-2) Alkaline Phosphatase 100 IU/L 39-117 (test code = 6768-6) AST (SGOT) (test code 22 IU/L 0-40 = 1920-8) ALT (SGPT) (test code 27 IU/L 0-44 = 1742-6) [facility] Description: Comp. Metabolic Panel (14)2019-04-05 02:37:00 Test Item Value Reference Range Interpretation Comments Glucose (test code = 219 mg/dL 65-99 H 2345-7) BUN (test code = 44 mg/dL 6-24 H 3094-0) Creatinine (test code 1.51 mg/dL 0.76-1.27 H = 2160-0) eGFR If NonAfricn Am 55 mL/min/1.73 >59 L (test code = 49665-4) eGFR If Africn Am 64 mL/min/1.73 >59 (test code = 24940-3) BUN/Creatinine Ratio 29 9-20 H (test code = 3097-3) Sodium (test code = 139 mmol/L 643-287 9979-2) Potassium (test code 4.4 mmol/L 3.5-5.2 = 2823-3) Chloride (test code = 99 mmol/L 96-106 5-0) Carbon Dioxide, Total 28 mmol/L 20-29 (test code = 2027-9) Calcium (test code = 8.9 mg/dL 8.7-10.2 59165-7) Protein, Total (test 6.1 g/dL 6.0-8.5 code [...] Total (test 2.8 g/dL 1.5-4.5 code = 41693-3) A/G Ratio (test code 1.2 1.2-2.2 = 1759-0) Bilirubin, Total 0.5 mg/dL 0.0-1.2 (test code = 1975-2) Alkaline Phosphatase 100 IU/L 39-117 (test code = 6768-6) AST (SGOT) (test code 22 IU/L 0-40 = 1920-8) ALT (SGPT) (test code 27 IU/L 0-44 = 1742-6) [facility] Description: Comp. Metabolic Panel (14)2019-04-05 02:37:00 Test Item Value Reference Range Interpretation Comments Glucose (test code = 219 mg/dL 65-99 H 2345-7) BUN (test code = 44 mg/dL 6-24 H 3094-0) Creatinine (test code 1.51 mg/dL 0.76-1.27 H = 2160-0) eGFR If NonAfricn Am 55 mL/min/1.73 >59 L (test code = 56882-2) eGFR If Africn Am 64 mL/min/1.73 >59 (test code = 17320-3) BUN/Creatinine Ratio 29 9-20 H (test code = 3097-3) Sodium (test code = 139 mmol/L 745-748 0048-2) Potassium (test code 4.4 mmol/L 3.5-5.2 = 2823-3) Chloride (test code = 99 mmol/L 96-106 2075-0) Carbon Dioxide, Total 28 mmol/L 20-29 (test code = 2027-) Calcium (test code = 8.9 mg/dL 8.7-10.2 05975-0) Protein, Total (test 6.1 g/dL 6.0-8.5 code [...] Total (test 2.8 g/dL 1.5-4.5 code = 63767-6) A/G Ratio (test code 1.2 1.2-2.2 = 1759-0) Bilirubin, Total 0.5 mg/dL 0.0-1.2 (test code = 1975-2) Alkaline Phosphatase 100 IU/L 39-117 (test code = 6768-6) AST (SGOT) (test code 22 IU/L 0-40 = 1920-8) ALT (SGPT) (test code 27 IU/L 0-44 = 1742-6) [facility] Description: Comp. Metabolic Panel (14)2019-04-05 02:37:00 Test Item Value Reference Range Interpretation Comments Glucose (test code = 219 mg/dL 65-99 H 2345-7) BUN (test code = 44 mg/dL 6-24 H 3094-0) Creatinine (test code 1.51 mg/dL 0.76-1.27 H = 2160-0) eGFR If NonAfricn Am 55 mL/min/1.73 >59 L (test code = 51111-7) eGFR If Africn Am 64 mL/min/1.73 >59 (test code = 97924-0) BUN/Creatinine Ratio 29 9-20 H (test code = 3097-3) Sodium (test code = 139 mmol/L 087-961 7796-2) Potassium (test code 4.4 mmol/L 3.5-5.2 = 2823-3) Chloride (test code = 99 mmol/L 96-106 2075-0) Carbon Dioxide, Total 28 mmol/L 20-29 (test code = 2027-9) Calcium (test code = 8.9 mg/dL 8.7-10.2 42435-5) Protein, Total (test 6.1 g/dL 6.0-8.5 code [...] Total (test 2.8 g/dL 1.5-4.5 code = 21800-2) A/G Ratio (test code 1.2 1.2-2.2 = 1759-0) Bilirubin, Total 0.5 mg/dL 0.0-1.2 (test code = 1974-2) Alkaline Phosphatase 100 IU/L 39-117 (test code = 6768-6) AST (SGOT) (test code 22 IU/L 0-40 = 1920-8) ALT (SGPT) (test code 27 IU/L 0-44 = 1742-6) [facility] Description: Comp. Metabolic Panel (2019-04-05 02:37:00 Test Item Value Reference Range Interpretation Comments Glucose (test code = 219 mg/dL 65-99 H 2345-7) BUN (test code = 44 mg/dL 6-24 H 3094-0) Creatinine (test code 1.51 mg/dL 0.76-1.27 H = 2160-0) eGFR If NonAfricn Am 55 mL/min/1.73 >59 L (test code = 04852-4) eGFR If Africn Am 64 mL/min/1.73 >59 (test code = 82426-7) BUN/Creatinine Ratio 29 9-20 H (test code = 3097-3) Sodium (test code = 139 mmol/L 698-289 6155-2) Potassium (test code 4.4 mmol/L 3.5-5.2 = 2823-3) Chloride (test code = 99 mmol/L 96-106 5-0) Carbon Dioxide, Total 28 mmol/L 20-29 (test code = 2027-9) Calcium (test code = 8.9 mg/dL 8.7-10.2 43127-5) Protein, Total (test 6.1 g/dL 6.0-8.5 code [...] - 4.6

Pe rfo rmed by:
[facility] [place] ()

Globulin, Total (test 2.8 g/dL 1.5-4.5 code = 80403-9) A/G Ratio (test code 1.2 1.2-2.2 = 1759-0) Bilirubin, Total 0.5 mg/dL 0.0-1.2 (test code = 1975-2) Alkaline Phosphatase 100 IU/L 39-117 (test code = 6768-6) AST (SGOT) (test code 22 IU/L 0-40 = 1920-8) ALT (SGPT) (test code 27 IU/L 0-44 = 1742-6) [facility] Description: Comp. Metabolic Panel (14)2019-04-05 02:37:00 Test Item Value Reference Range Interpretation Comments Glucose (test code = 219 mg/dL 65-99 H 2345-7) BUN (test code = 44 mg/dL 6-24 H 3094-0) Creatinine (test code 1.51 mg/dL 0.76-1.27 H = 2160-0) eGFR If NonAfricn Am 55 mL/min/1.73 >59 L (test code = 49948-1) eGFR If Africn Am 64 mL/min/1.73 >59 (test code = 49048-7) BUN/Creatinine Ratio 29 9-20 H (test code = 3097-3) Sodium (test code = 139 mmol/L 536-451 8118-2) Potassium (test code 4.4 mmol/L 3.5-5.2 = 2823-3) Chloride (test code = 99 mmol/L 96-106 2075-0) Carbon Dioxide, Total 28 mmol/L 20-29 (test code = 2027-9) Calcium (test code = 8.9 mg/dL 8.7-10.2 00829-1) Protein, Total (test 6.1 g/dL 6.0-8.5 code [...] - 4.6

Pe rfo rmed by:
[facility] [place] ([place])

Globulin, Total (test 2.8 g/dL 1.5-4.5 code = 44905-4) A/G Ratio (test code 1.2 1.2-2.2 = 1759-0) Bilirubin, Total 0.5 mg/dL 0.0-1.2 (test code = 1975-2) Alkaline Phosphatase 100 IU/L 39-117 (test code = 6768-6) AST (SGOT) (test code 22 IU/L 0-40 = 1920-8) ALT (SGPT) (test code 27 IU/L 0-44 = 1742-6) [facility] Description: Comp. Metabolic Panel (142019-04-05 02:37:00 Test Item Value Reference Range Interpretation Comments Glucose (test code = 219 mg/dL 65-99 H 2345-7) BUN (test code = 44 mg/dL 6-24 H 3094-0) Creatinine (test code 1.51 mg/dL 0.76-1.27 H = 2160-0) eGFR If NonAfricn Am 55 mL/min/1.73 >59 L (test code = 65231-1) eGFR If Africn Am 64 mL/min/1.73 >59 (test code = 69583-3) BUN/Creatinine Ratio 29 9-20 H (test code = 3097-3) Sodium (test code = 139 mmol/L 599-957 3110-2) Potassium (test code 4.4 mmol/L 3.5-5.2 = 2823-3) Chloride (test code = 99 mmol/L 96-106 2074-0) Carbon Dioxide, Total 28 mmol/L 20-29 (test code = 2027-) Calcium (test code = 8.9 mg/dL 8.7-10.2 42098-8) Protein, Total (test 6.1 g/dL 6.0-8.5 code [...] Total (test 2.8 g/dL 1.5-4.5 code = 06617-7) A/G Ratio (test code 1.2 1.2-2.2 = 1759-0) Bilirubin, Total 0.5 mg/dL 0.0-1.2 (test code = 1974-2) Alkaline Phosphatase 100 IU/L 39-117 (test code = 6768-6) AST (SGOT) (test code 22 IU/L 0-40 = 1920-8) ALT (SGPT) (test code 27 IU/L 0-44 = 1742-6) [facility] Description: Comp. Metabolic Panel (14)2019-04-05 02:37:00 Test Item Value Reference Range Interpretation Comments Glucose (test code = 219 mg/dL 65-99 H 2345-7) BUN (test code = 44 mg/dL 6-24 H 3094-0) Creatinine (test code 1.51 mg/dL 0.76-1.27 H = 2160-0) eGFR If NonAfricn Am 55 mL/min/1.73 >59 L (test code = 09540-4) eGFR If Africn Am 64 mL/min/1.73 >59 (test code = 21786-4) BUN/Creatinine Ratio 29 9-20 H (test code = 3097-3) Sodium (test code = 139 mmol/L 764-333 6210-2) Potassium (test code 4.4 mmol/L 3.5-5.2 = 2823-3) Chloride (test code = 99 mmol/L 96-106 2075-0) Carbon Dioxide, Total 28 mmol/L 20-29 (test code = 2027-9) Calcium (test code = 8.9 mg/dL 8.7-10.2 68324-0) Protein, Total (test 6.1 g/dL 6.0-8.5 code [...] Total (test 2.8 g/dL 1.5-4.5 code = 87433-2) A/G Ratio (test code 1.2 1.2-2.2 = 1759-0) Bilirubin, Total 0.5 mg/dL 0.0-1.2 (test code = 1975-2) Alkaline Phosphatase 100 IU/L 39-117 (test code = 6768-6) AST (SGOT) (test code 22 IU/L 0-40 = 1920-8) ALT (SGPT) (test code 27 IU/L 0-44 = 1742-6) [facility] Description: Comp. Metabolic Panel (14)2019-04-05 02:37:00 Test Item Value Reference Range Interpretation Comments Glucose (test code = 219 mg/dL 65-99 H 2345-7) BUN (test code = 44 mg/dL 6-24 H 3094-0) Creatinine (test code 1.51 mg/dL 0.76-1.27 H = 2160-0) eGFR If NonAfricn Am 55 mL/min/1.73 >59 L (test code = 09899-9) eGFR If Africn Am 64 mL/min/1.73 >59 (test code = 29550-3) BUN/Creatinine Ratio 29 9-20 H (test code = 3097-3) Sodium (test code = 139 mmol/L 066-503 9392-2) Potassium (test code 4.4 mmol/L 3.5-5.2 = 2823-3) Chloride (test code = 99 mmol/L 96-106 2074-0) Carbon Dioxide, Total 28 mmol/L 20-29 (test code = 2027-) Calcium (test code = 8.9 mg/dL 8.7-10.2 37271-3) Protein, Total (test 6.1 g/dL 6.0-8.5 code [...] - 4.6

Pe rfo rmed by:
[facility] [place] ()

Globulin, Total (test 2.8 g/dL 1.5-4.5 code = 54462-7) A/G Ratio (test code 1.2 1.2-2.2 = 1759-0) Bilirubin, Total 0.5 mg/dL 0.0-1.2 (test code = 1974-) Alkaline Phosphatase 100 IU/L 39-117 (test code = 6768-6) AST (SGOT) (test code 22 IU/L 0-40 = 1920-8) ALT (SGPT) (test code 27 IU/L 0-44 = 1742-6) [facility] Description: Comp. Metabolic Panel (14)2019-04-05 02:37:00 Test Item Value Reference Range Interpretation Comments Glucose (test code = 219 mg/dL 65-99 H 2345-7) BUN (test code = 44 mg/dL 6-24 H 3094-0) Creatinine (test code 1.51 mg/dL 0.76-1.27 H = 2160-0) eGFR If NonAfricn Am 55 mL/min/1.73 >59 L (test code = 43331-4) eGFR If Africn Am 64 mL/min/1.73 >59 (test code = 25049-6) BUN/Creatinine Ratio 29 9-20 H (test code = 3097-3) Sodium (test code = 139 mmol/L 502-690 3266-2) Potassium (test code 4.4 mmol/L 3.5-5.2 = 2823-3) Chloride (test code = 99 mmol/L 96-106 2075-0) Carbon Dioxide, Total 28 mmol/L 20-29 (test code = 8-9) Calcium (test code = 8.9 mg/dL 8.7-10.2 48379-5) Protein, Total (test 6.1 g/dL 6.0-8.5 code [...] - 4.6

Pe rfo rmed by:
[facility] [place] ([place])

Globulin, Total (test 2.8 g/dL 1.5-4.5 code = 80274-7) A/G Ratio (test code 1.2 1.2-2.2 = 1759-0) Bilirubin, Total 0.5 mg/dL 0.0-1.2 (test code = 1975-2) Alkaline Phosphatase 100 IU/L 39-117 (test code = 6768-6) AST (SGOT) (test code 22 IU/L 0-40 = 1920-8) ALT (SGPT) (test code 27 IU/L 0-44 = 1742-6) [facility] Description: Comp. Metabolic Panel (14)2019-04-05 02:37:00 Test Item Value Reference Range Interpretation Comments Glucose (test code = 219 mg/dL 65-99 H 2345-7) BUN (test code = 44 mg/dL 6-24 H 3094-0) Creatinine (test code 1.51 mg/dL 0.76-1.27 H = 2160-0) eGFR If NonAfricn Am 55 mL/min/1.73 >59 L (test code = 29090-9) eGFR If Africn Am 64 mL/min/1.73 >59 (test code = 38947-2) BUN/Creatinine Ratio 29 9-20 H (test code = 3097-3) Sodium (test code = 139 mmol/L 242-058 6937-2) Potassium (test code 4.4 mmol/L 3.5-5.2 = 2823-3) Chloride (test code = 99 mmol/L 96-106 2075-0) Carbon Dioxide, Total 28 mmol/L 20-29 (test code = 2027-11) Calcium (test code = 8.9 mg/dL 8.7-10.2 84463-0) Protein, Total (test 6.1 g/dL 6.0-8.5 code [...] - 4.6

Pe rfo rmed by:
[facility] [place] ()

Globulin, Total (test 2.8 g/dL 1.5-4.5 code = 18470-2) A/G Ratio (test code 1.2 1.2-2.2 = 1758-0) Bilirubin, Total 0.5 mg/dL 0.0-1.2 (test code = 1974-) Alkaline Phosphatase 100 IU/L 39-117 (test code = 6768-6) AST (SGOT) (test code 22 IU/L 0-40 = 1920-8) ALT (SGPT) (test code 27 IU/L 0-44 = 1742-6) [facility] Description: Comp. Metabolic Panel (14)2019-04-05 02:37:00 Test Item Value Reference Range Interpretation Comments Glucose (test code = 219 mg/dL 65-99 H 2345-7) BUN (test code = 44 mg/dL 6-24 H 3094-0) Creatinine (test code 1.51 mg/dL 0.76-1.27 H = 2160-0) eGFR If NonAfricn Am 55 mL/min/1.73 >59 L (test code = 60079-1) eGFR If Africn Am 64 mL/min/1.73 >59 (test code = 23603-8) BUN/Creatinine Ratio 29 9-20 H (test code = 3097-3) Sodium (test code = 139 mmol/L 559-378 8836-2) Potassium (test code 4.4 mmol/L 3.5-5.2 = 2823-3) Chloride (test code = 99 mmol/L 96-106 2075-0) Carbon Dioxide, Total 28 mmol/L 20-29 (test code = 8-9) Calcium (test code = 8.9 mg/dL 8.7-10.2 66726-9) Protein, Total (test 6.1 g/dL 6.0-8.5 code [...] - 4.6

Pe rfo rmed by:
[facility] [place] ([place])

Globulin, Total (test 2.8 g/dL 1.5-4.5 code = 40327-7) A/G Ratio (test code 1.2 1.2-2.2 = 1759-0) Bilirubin, Total 0.5 mg/dL 0.0-1.2 (test code = 1974-2) Alkaline Phosphatase 100 IU/L 39-117 (test code = 6768-6) AST (SGOT) (test code 22 IU/L 0-40 = 1920-8) ALT (SGPT) (test code 27 IU/L 0-44 = 1742-6) [facility] Description: Comp. Metabolic Panel (14)2019-04-05 02:37:00 Test Item Value Reference Range Interpretation Comments Glucose (test code = 219 mg/dL 65-99 H 2345-7) BUN (test code = 44 mg/dL 6-24 H 3094-0) Creatinine (test code 1.51 mg/dL 0.76-1.27 H = 2160-0) eGFR If NonAfricn Am 55 mL/min/1.73 >59 L (test code = 14103-5) eGFR If Africn Am 64 mL/min/1.73 >59 (test code = 73087-2) BUN/Creatinine Ratio 29 9-20 H (test code = 3097-3) Sodium (test code = 139 mmol/L 653-643 2703-2) Potassium (test code 4.4 mmol/L 3.5-5.2 = 2823-3) Chloride (test code = 99 mmol/L 96-106 2075-0) Carbon Dioxide, Total 28 mmol/L 20-29 (test code = 2027-9) Calcium (test code = 8.9 mg/dL 8.7-10.2 04289-2) Protein, Total (test 6.1 g/dL 6.0-8.5 code [...] - 4.6

Pe rfo rmed by:
[facility] [place] ()

Globulin, Total (test 2.8 g/dL 1.5-4.5 code = 33498-4) A/G Ratio (test code 1.2 1.2-2.2 = 1759-0) Bilirubin, Total 0.5 mg/dL 0.0-1.2 (test code = 1974-2) Alkaline Phosphatase 100 IU/L 39-117 (test code = 6768-6) AST (SGOT) (test code 22 IU/L 0-40 = 1920-8) ALT (SGPT) (test code 27 IU/L 0-44 = 1742-6) [facility] Description: Comp. Metabolic Panel (14)2019-04-05 02:37:00 Test Item Value Reference Range Interpretation Comments Glucose (test code = 219 mg/dL 65-99 H 2345-7) BUN (test code = 44 mg/dL 6-24 H 3094-0) Creatinine (test code 1.51 mg/dL 0.76-1.27 H = 2160-0) eGFR If NonAfricn Am 55 mL/min/1.73 >59 L (test code = 41154-2) eGFR If Africn Am 64 mL/min/1.73 >59 (test code = 46731-2) BUN/Creatinine Ratio 29 9-20 H (test code = 3097-3) Sodium (test code = 139 mmol/L 339-308 2500-2) Potassium (test code 4.4 mmol/L 3.5-5.2 = 2823-3) Chloride (test code = 99 mmol/L 96-106 2075-0) Carbon Dioxide, Total 28 mmol/L 20-29 (test code = 2027-9) Calcium (test code = 8.9 mg/dL 8.7-10.2 95340-3) Protein, Total (test 6.1 g/dL 6.0-8.5 code [...] Total (test 2.8 g/dL 1.5-4.5 code = 59578-2) A/G Ratio (test code 1.2 1.2-2.2 = 1759-0) Bilirubin, Total 0.5 mg/dL 0.0-1.2 (test code = 1974-2) Alkaline Phosphatase 100 IU/L 39-117 (test code = 6768-6) AST (SGOT) (test code 22 IU/L 0-40 = 1920-8) ALT (SGPT) (test code 27 IU/L 0-44 = 1742-6) [facility] Description: Comp. Metabolic Panel (14)2019-04-05 02:37:00 Test Item Value Reference Range Interpretation Comments Glucose (test code = 219 mg/dL 65-99 H 2345-7) BUN (test code = 44 mg/dL 6-24 H 3094-0) Creatinine (test code 1.51 mg/dL 0.76-1.27 H = 2160-0) eGFR If NonAfricn Am 55 mL/min/1.73 >59 L (test code = 83706-1) eGFR If Africn Am 64 mL/min/1.73 >59 (test code = 98452-2) BUN/Creatinine Ratio 29 9-20 H (test code = 3097-3) Sodium (test code = 139 mmol/L 350-665 4696-2) Potassium (test code 4.4 mmol/L 3.5-5.2 = 2823-3) Chloride (test code = 99 mmol/L 96-106 2075-0) Carbon Dioxide, Total 28 mmol/L 20-29 (test code = 2027-9) Calcium (test code = 8.9 mg/dL 8.7-10.2 00797-3) Protein, Total (test 6.1 g/dL 6.0-8.5 code [...] - 4.6

Pe rfo rmed by:
[facility] [place] ([place])

Globulin, Total (test 2.8 g/dL 1.5-4.5 code = 57218-7) A/G Ratio (test code 1.2 1.2-2.2 = 1759-0) Bilirubin, Total 0.5 mg/dL 0.0-1.2 (test code = 1975-2) Alkaline Phosphatase 100 IU/L 39-117 (test code = 6768-6) AST (SGOT) (test code 22 IU/L 0-40 = 1920-8) ALT (SGPT) (test code 27 IU/L 0-44 = 1742-6) [facility] Description: Comp. Metabolic Panel (2019-04-05 02:37:00 Test Item Value Reference Range Interpretation Comments Glucose (test code = 219 mg/dL 65-99 H 2345-7) BUN (test code = 44 mg/dL 6-24 H 3094-0) Creatinine (test code 1.51 mg/dL 0.76-1.27 H = 2160-0) eGFR If NonAfricn Am 55 mL/min/1.73 >59 L (test code = 18678-5) eGFR If Africn Am 64 mL/min/1.73 >59 (test code = 77607-9) BUN/Creatinine Ratio 29 9-20 H (test code = 3097-3) Sodium (test code = 139 mmol/L 677-905 5981-2) Potassium (test code 4.4 mmol/L 3.5-5.2 = 2823-3) Chloride (test code = 99 mmol/L 96-106 2075-0) Carbon Dioxide, Total 28 mmol/L 20-29 (test code = 8-9) Calcium (test code = 8.9 mg/dL 8.7-10.2 19846-3) Protein, Total (test 6.1 g/dL 6.0-8.5 code [...] - 4.6

Pe rfo rmed by:
[facility] [place] ([place])

Globulin, Total (test 2.8 g/dL 1.5-4.5 code = 22179-1) A/G Ratio (test code 1.2 1.2-2.2 = 1759-0) Bilirubin, Total 0.5 mg/dL 0.0-1.2 (test code = 1974-2) Alkaline Phosphatase 100 IU/L 39-117 (test code = 6768-6) AST (SGOT) (test code 22 IU/L 0-40 = 1920-8) ALT (SGPT) (test code 27 IU/L 0-44 = 1742-6) [facility] Description: Comp. Metabolic Panel (142019-04-05 02:37:00 Test Item Value Reference Range Interpretation Comments Glucose (test code = 219 mg/dL 65-99 H 2345-7) BUN (test code = 44 mg/dL 6-24 H 3094-0) Creatinine (test code 1.51 mg/dL 0.76-1.27 H = 2160-0) eGFR If NonAfricn Am 55 mL/min/1.73 >59 L (test code = 08385-0) eGFR If Africn Am 64 mL/min/1.73 >59 (test code = 85881-6) BUN/Creatinine Ratio 29 9-20 H (test code = 3097-3) Sodium (test code = 139 mmol/L 489-919 7552-2) Potassium (test code 4.4 mmol/L 3.5-5.2 = 2823-3) Chloride (test code = 99 mmol/L 96-106 2075-0) Carbon Dioxide, Total 28 mmol/L 20-29 (test code = 2027-9) Calcium (test code = 8.9 mg/dL 8.7-10.2 89311-6) Protein, Total (test 6.1 g/dL 6.0-8.5 code [...] - 4.6

Pe rfo rmed by:
[facility] [place] ([place])

Globulin, Total (test 2.8 g/dL 1.5-4.5 code = 80894-5) A/G Ratio (test code 1.2 1.2-2.2 = 1759-0) Bilirubin, Total 0.5 mg/dL 0.0-1.2 (test code = 1975-2) Alkaline Phosphatase 100 IU/L 39-117 (test code = 6768-6) AST (SGOT) (test code 22 IU/L 0-40 = 1920-8) ALT (SGPT) (test code 27 IU/L 0-44 = 1742-6) [facility] Description: Comp. Metabolic Panel (2019-04-05 02:37:00 Test Item Value Reference Range Interpretation Comments Glucose (test code = 219 mg/dL 65-99 H 2345-7) BUN (test code = 44 mg/dL 6-24 H 3094-0) Creatinine (test code 1.51 mg/dL 0.76-1.27 H = 2160-0) eGFR If NonAfricn Am 55 mL/min/1.73 >59 L (test code = 19177-8) eGFR If Africn Am 64 mL/min/1.73 >59 (test code = 17464-3) BUN/Creatinine Ratio 29 9-20 H (test code = 3097-3) Sodium (test code = 139 mmol/L 884-143 4406-2) Potassium (test code 4.4 mmol/L 3.5-5.2 = 2823-3) Chloride (test code = 99 mmol/L 96-106 5-0) Carbon Dioxide, Total 28 mmol/L 20-29 (test code = 2027-9) Calcium (test code = 8.9 mg/dL 8.7-10.2 30486-2) Protein, Total (test 6.1 g/dL 6.0-8.5 code [...] Total (test 2.8 g/dL 1.5-4.5 code = 00415-9) A/G Ratio (test code 1.2 1.2-2.2 = 1759-0) Bilirubin, Total 0.5 mg/dL 0.0-1.2 (test code = 1975-2) Alkaline Phosphatase 100 IU/L 39-117 (test code = 6768-6) AST (SGOT) (test code 22 IU/L 0-40 = 1920-8) ALT (SGPT) (test code 27 IU/L 0-44 = 1742-6) [facility] Description: Comp. Metabolic Panel (14)2019-04-05 02:37:00 Test Item Value Reference Range Interpretation Comments Glucose (test code = 219 mg/dL 65-99 H 2345-7) BUN (test code = 44 mg/dL 6-24 H 3094-0) Creatinine (test code 1.51 mg/dL 0.76-1.27 H = 2160-0) eGFR If NonAfricn Am 55 mL/min/1.73 >59 L (test code = 08752-6) eGFR If Africn Am 64 mL/min/1.73 >59 (test code = 37444-3) BUN/Creatinine Ratio 29 9-20 H (test code = 3097-3) Sodium (test code = 139 mmol/L 302-090 3531-2) Potassium (test code 4.4 mmol/L 3.5-5.2 = 2823-3) Chloride (test code = 99 mmol/L 96-106 5-0) Carbon Dioxide, Total 28 mmol/L 20-29 (test code = 2027-) Calcium (test code = 8.9 mg/dL 8.7-10.2 39073-6) Protein, Total (test 6.1 g/dL 6.0-8.5 code [...] - 4.6

Pe rfo rmed by:
[facility] [place] ([place])

Globulin, Total (test 2.8 g/dL 1.5-4.5 code = 38311-1) A/G Ratio (test code 1.2 1.2-2.2 = 1759-0) Bilirubin, Total 0.5 mg/dL 0.0-1.2 (test code = 1975-2) Alkaline Phosphatase 100 IU/L 39-117 (test code = 6768-6) AST (SGOT) (test code 22 IU/L 0-40 = 1920-8) ALT (SGPT) (test code 27 IU/L 0-44 = 1742-6) [facility] Description: Comp. Metabolic Panel (2019-04-05 02:37:00 Test Item Value Reference Range Interpretation Comments Glucose (test code = 219 mg/dL 65-99 H 2345-7) BUN (test code = 44 mg/dL 6-24 H 3094-0) Creatinine (test code 1.51 mg/dL 0.76-1.27 H = 2160-0) eGFR If NonAfricn Am 55 mL/min/1.73 >59 L (test code = 71747-5) eGFR If Africn Am 64 mL/min/1.73 >59 (test code = 30846-8) BUN/Creatinine Ratio 29 9-20 H (test code = 3097-3) Sodium (test code = 139 mmol/L 958-442 5131-2) Potassium (test code 4.4 mmol/L 3.5-5.2 = 2823-3) Chloride (test code = 99 mmol/L 96-106 2075-0) Carbon Dioxide, Total 28 mmol/L 20-29 (test code = 2027-9) Calcium (test code = 8.9 mg/dL 8.7-10.2 02183-8) Protein, Total (test 6.1 g/dL 6.0-8.5 code [...] Total (test 2.8 g/dL 1.5-4.5 code = 74845-4) A/G Ratio (test code 1.2 1.2-2.2 = 1759-0) Bilirubin, Total 0.5 mg/dL 0.0-1.2 (test code = 1975-2) Alkaline Phosphatase 100 IU/L 39-117 (test code = 6768-6) AST (SGOT) (test code 22 IU/L 0-40 = 1920-8) ALT (SGPT) (test code 27 IU/L 0-44 = 1742-6) [facility] Description: Comp. Metabolic Panel (14)2019-04-05 02:37:00 Test Item Value Reference Range Interpretation Comments Glucose (test code = 219 mg/dL 65-99 H 2345-7) BUN (test code = 44 mg/dL 6-24 H 3094-0) Creatinine (test code 1.51 mg/dL 0.76-1.27 H = 2160-0) eGFR If NonAfricn Am 55 mL/min/1.73 >59 L (test code = 13499-8) eGFR If Africn Am 64 mL/min/1.73 >59 (test code = 35900-4) BUN/Creatinine Ratio 29 9-20 H (test code = 3097-3) Sodium (test code = 139 mmol/L 061-672 2764-2) Potassium (test code 4.4 mmol/L 3.5-5.2 = 2823-3) Chloride (test code = 99 mmol/L 96-106 2075-0) Carbon Dioxide, Total 28 mmol/L 20-29 (test code = 2027-9) Calcium (test code = 8.9 mg/dL 8.7-10.2 20949-2) Protein, Total (test 6.1 g/dL 6.0-8.5 code [...] - 4.6

Pe rfo rmed by:
[facility] ([place])

Globulin, Total (test 2.8 g/dL 1.5-4.5 code = 14842-9) A/G Ratio (test code 1.2 1.2-2.2 = 1759-0) Bilirubin, Total 0.5 mg/dL 0.0-1.2 (test code = 1975-2) Alkaline Phosphatase 100 IU/L 39-117 (test code = 6768-6) AST (SGOT) (test code 22 IU/L 0-40 = 1920-8) ALT (SGPT) (test code 27 IU/L 0-44 = 1742-6) [facility] Description: Comp. Metabolic Panel (2019-04-05 02:37:00 Test Item Value Reference Range Interpretation Comments Glucose (test code = 219 mg/dL 65-99 H 2345-7) BUN (test code = 44 mg/dL 6-24 H 3094-0) Creatinine (test code 1.51 mg/dL 0.76-1.27 H = 2160-0) eGFR If NonAfricn Am 55 mL/min/1.73 >59 L (test code = 23934-0) eGFR If Africn Am 64 mL/min/1.73 >59 (test code = 35324-0) BUN/Creatinine Ratio 29 9-20 H (test code = 3097-3) Sodium (test code = 139 mmol/L 435-252 9340-2) Potassium (test code 4.4 mmol/L 3.5-5.2 = 2823-3) Chloride (test code = 99 mmol/L 96-106 2075-0) Carbon Dioxide, Total 28 mmol/L 20-29 (test code = 2027-9) Calcium (test code = 8.9 mg/dL 8.7-10.2 26422-1) Protein, Total (test 6.1 g/dL 6.0-8.5 code [...] Total (test 2.8 g/dL 1.5-4.5 code = 07811-4) A/G Ratio (test code 1.2 1.2-2.2 = 1759-0) Bilirubin, Total 0.5 mg/dL 0.0-1.2 (test code = 1975-2) Alkaline Phosphatase 100 IU/L 39-117 (test code = 6768-6) AST (SGOT) (test code 22 IU/L 0-40 = 1920-8) ALT (SGPT) (test code 27 IU/L 0-44 = 1742-6) [facility] Description: Comp. Metabolic Panel (14)2019-04-05 02:37:00 Test Item Value Reference Range Interpretation Comments Glucose (test code = 219 mg/dL 65-99 H 2345-7) BUN (test code = 44 mg/dL 6-24 H 3094-0) Creatinine (test code 1.51 mg/dL 0.76-1.27 H = 2160-0) eGFR If NonAfricn Am 55 mL/min/1.73 >59 L (test code = 42803-4) eGFR If Africn Am 64 mL/min/1.73 >59 (test code = 80491-1) BUN/Creatinine Ratio 29 9-20 H (test code = 3097-3) Sodium (test code = 139 mmol/L 482-574 6999-2) Potassium (test code 4.4 mmol/L 3.5-5.2 = 2823-3) Chloride (test code = 99 mmol/L 96-106 5-0) Carbon Dioxide, Total 28 mmol/L 20-29 (test code = 2027-9) Calcium (test code = 8.9 mg/dL 8.7-10.2 98661-8) Protein, Total (test 6.1 g/dL 6.0-8.5 code [...] - 4.6

Pe rfo rmed by:
[facility] [place] ()

Globulin, Total (test 2.8 g/dL 1.5-4.5 code = 38868-1) A/G Ratio (test code 1.2 1.2-2.2 = 1759-0) Bilirubin, Total 0.5 mg/dL 0.0-1.2 (test code = 1975-2) Alkaline Phosphatase 100 IU/L 39-117 (test code = 6768-6) AST (SGOT) (test code 22 IU/L 0-40 = 1920-8) ALT (SGPT) (test code 27 IU/L 0-44 = 1742-6) [facility] STREP A [id number] 11:58:00 Test Item Value Reference Range Interpretation Comments STREP A ANTIGEN (AntCor) (test code Negative = 556) POCT-GLUCOSE [id number] 22:44:00 Test Item Value Reference Range Interpretation Comments POC-GLUCOSE METER 431 mg/dL 70-110 HH TESTED AT [address] ([employer]) (test code POINT [facility] [place] = 1538) [address] POCT-GLUCOSE [id number] 22:44:00 Test Item Value Reference Range Interpretation Comments POC-GLUCOSE METER 455 mg/dL 70-110 HH TESTED AT [facility] [address] (BEAKER) (test code [address]INT [address] [facility] [place] = 1538) [address] URINALYSIS W/ REFLEX URINE [id number] 20:30:00 Test Item Value Reference Range Interpretation [...] SOURCE(BEAKER) (test code = 2795) COMPREHENSIVE METABOLIC [id number] 20:27:00 Test Item Value Reference Range Interpretation [...] S NOT APPLICABLE FOR DIALYSIS PATIEN TS. [id number] 20:27:00 Test Item Value Reference Range Interpretation Comments LIPASE (BEAKER) (test code = 749) 37 U/L 6-51 [id number] 20:23:00 Test Item Value Reference Range Interpretation [...] Information (Auto Output)CBC W/PLT COUNT & AUTO [id number] 20:11:00 Test Item Value Reference Range Interpretation [...] (BEAKER) (test code = 2801) BASIC METABOLIC [id number] 06:52:00 Test Item Value Reference Range Interpretation [...] NOT APPLICABLE FOR DIALYSIS PATIEN TS. POCT-GLUCOSE [id number] 05:58:00 Test Item Value Reference Range Interpretation Comments POC-GLUCOSE METER 222 mg/dL 70-110 H TESTED AT [address] ([facility]) (test code [facility] [place] = 1538) [address] POCT-GLUCOSE [id number] 20:37:00 Test Item Value Reference Range Interpretation Comments POC-GLUCOSE METER 157 mg/dL 70-110 H TESTED AT [address] ([facility]) (test code [facility] [place] = 1538) [address] POCT-GLUCOSE [id number] 18:13:00 Test Item Value Reference Range Interpretation Comments POC-GLUCOSE METER 176 mg/dL 70-110 H TESTED AT [address] ([facility]) (test code [facility] [place] = 1538) 97[address] POCT-GLUCOSE [id number] 12:16:00 Test Item Value Reference Range Interpretation Comments POC-GLUCOSE METER 161 mg/dL 70-110 H TESTED AT [address] ([facility]) (test code [facility] [place] = 1538) [address] BASIC METABOLIC [id number] 07:11:00 Test Item Value Reference Range Interpretation [...] PATIEN TS. CBC W/PLT COUNT & AUTO [id number] 06:27:00 Test Item Value Reference Range Interpretation [...] PERCENT (BEAKER) (test code = 2801) POCT-GLUCOSE [id number] 06:22:00 Test Item Value Reference Range Interpretation Comments POC-GLUCOSE METER 172 mg/dL 70-110 H TESTED AT [address] ([facility]) (test code [facility] [place] = 1538) [address] POCT-GLUCOSE [id number] 20:27:00 Test Item Value Reference Range Interpretation Comments POC-GLUCOSE METER 209 mg/dL 70-110 H TESTED AT [address] ([facility]) (test code [facility] [place] = 1538) 585[address] POCT-GLUCOSE [id number] 18:12:00 Test Item Value Reference Range Interpretation Comments POC-GLUCOSE METER 192 mg/dL 70-110 H TESTED AT [address] ([facility]) (test code [facility] [place] = 1538) 29975 POCT-GLUCOSE [id number] 11:20:00 Test Item Value Reference Range Interpretation Comments POC-GLUCOSE METER 192 mg/dL 70-110 H TESTED AT [address] (BEAKER) (test code [facility] [place] = 1538) [address] BASIC METABOLIC [id number] 07:02:00 Test Item Value Reference Range Interpretation [...] PATIEN TS. CBC W/PLT COUNT & AUTO [id number] 06:41:00 Test Item Value Reference Range Interpretation [...] PERCENT (BEAKER) (test code = 2801) POCT-GLUCOSE [id number] 06:13:00 Test Item Value Reference Range Interpretation Comments POC-GLUCOSE METER 134 mg/dL 70-110 H TEST[facility] AT [address] [facility] (test code [facility] [place] = 1538) [address] POCT-GLUCOSE [id number] 21:38:00 Test Item Value Reference Range Interpretation Comments POC-GLUCOSE METER 114 mg/dL 70-110 H TEST[facility] AT [address] [facility] (test code [facility] [place] = 1538) [address] POCT-GLUCOSE [id number] 16:58:00 Test Item Value Reference Range Interpretation Comments POC-GLUCOSE METER 294 mg/dL 70-110 H TESTED AT [address] (BEAKER) (test code [facility] [place] = 1538) 17708 POCT-GLUCOSE [id number] 12:03:00 Test Item Value Reference Range Interpretation Comments POC-GLUCOSE METER 157 mg/dL 70-110 H TESTED AT [facility] [address] (BEAKER) (test code [address] [facility] [place] = 1538) [address] POCT-GLUCOSE [id number] 06:50:00 Test Item Value Reference Range Interpretation Comments POC-GLUCOSE METER 167 mg/dL 70-110 H TESTED AT [facility] [address] (BEAKER) (test code [address] [facility] [place] = 1538) [address] BASIC METABOLIC [id number] 05:07:00 Test Item Value Reference Range Interpretation [...] S NOT APPLICABLE FOR DIALYSIS PATIEN TS. [id number] 05:01:00 Test Item Value Reference Range Interpretation Comments MAGNESIUM (BEAKER) (test code = 2.0 mg/dL 1.5-3.0 627) CBC W/PLT COUNT & AUTO [id number] 04:43:00 Test Item Value Reference Range Interpretation [...] PERCENT (BEAKER) (test code = 2801) POCT-GLUCOSE [id number] 20:37:00 Test Item Value Reference Range Interpretation Comments POC-GLUCOSE METER 212 mg/dL 70-110 H TESTED AT [address] ([facility]) (test code [facility] [place] = 1538) 259[address] POCT-GLUCOSE [id number] 17:03:00 Test Item Value Reference Range Interpretation Comments POC-GLUCOSE METER 176 mg/dL 70-110 H TESTED AT [facility] (BEAKER) (test code [facility] [place] = 1538) 74[address] POCT-GLUCOSE [id number] 12:05:00 Test Item Value Reference Range Interpretation Comments POC-GLUCOSE METER 169 mg/dL 70-110 H TESTED AT [facility] (BEAKER) (test code [facility] [place] = 1538) [address] POCT-GLUCOSE [id number] 09:25:00 Test Item Value Reference Range Interpretation Comments POC-GLUCOSE METER 148 mg/dL 70-110 H TESTED AT [address] (BEAKER) (test code [facility] [place] = 1538) [address] BASIC METABOLIC [id number] 06:32:00 Test Item Value Reference Range Interpretation [...] NOT APPLICABLE FOR DIALYSIS PATIEN TS. POCT-GLUCOSE [id number] 06:12:00 Test Item Value Reference Range Interpretation Comments POC-GLUCOSE METER 165 mg/dL 70-110 H TESTED AT [facility] [address] (BEAKER) (test code [facility] [place] = 1538) 17[address] CBC W/PLT COUNT & AUTO [id number] 06:00:00 Test Item Value Reference Range Interpretation [...] PERCENT (BEAKER) (test code = 2801) POCT-GLUCOSE [id number] 21:02:00 Test Item Value Reference Range Interpretation Comments POC-GLUCOSE METER 185 mg/dL 70-110 H TESTED AT [address] ([facility]) (test code [address] [facility] [place] = 1538) [address] POCT-GLUCOSE [id number] 16:21:00 Test Item Value Reference Range Interpretation Comments POC-GLUCOSE METER 141 mg/dL 70-110 H TESTED AT [address] ([facility]) (test code [address] [facility] [place] = 1538) [address] POCT-GLUCOSE [id number] 12:26:00 Test Item Value Reference Range Interpretation Comments POC-GLUCOSE METER 145 mg/dL 70-110 H TESTED AT [address] ([facility]) (test code [address] [facility] [place] = 1538) 21469 POCT-GLUCOSE [id number] 06:43:00 Test Item Value Reference Range Interpretation Comments POC-GLUCOSE METER 170 mg/dL 70-110 H TESTED AT [address] ([facility]) (test code [address] [facility] [place] = 1538) 269[address] BASIC METABOLIC [id number] 06:39:00 Test Item Value Reference Range Interpretation Comments SODIUM (BEAKER) 140 meq/L 135-148 (test code = 381) POTASSIUM (BEAKER) 3.9 meq/L 3.6-5.5 (test code = 379) CHLORIDE (BEAKER) 104 meq/L 98-106 (test code = 382) CO2 (BEAKER) (test 30 meq/L 20-29 H code = 355) BLOOD UREA NITROGEN 20 mg/dL - (BEAKER) (test code = 354) CREATININE (BEAKER) [...] S NOT APPLICABLE FOR DIALYSIS PATIEN TS. [id number] 06:33:00 Test Item Value Reference Range Interpretation Comments MAGNESIUM (BEAKER) (test code = 1.9 mg/dL 1.5-3.0 627) CBC W/PLT COUNT & AUTO [id number] 06:10:00 Test Item Value Reference Range Interpretation [...] (test code = 416) BASOPHILS ABSOLUTE COUNT ([facility]) 0.08 K/ L 0.00-0.20 (test code = 417) IMMATURE GRANULOCYTES-RELATIVE 1 % 0-0 H PERCENT ([facility]) (test code = 2801) POCT-GLUCOSE [id number] 21:08:00 Test Item Value Reference Range Interpretation Comments POC-GLUCOSE METER 218 mg/dL 70-110 H TESTED AT [address] ([facility]) (test code [address] [facility] [place] = 1538) [address] POCT-GLUCOSE [id number] 16:36:00 Test Item Value Reference Range Interpretation Comments POC-GLUCOSE METER 142 mg/dL 70-110 H TESTED AT [address] ([facility]) (test code [address] [facility] [place] = 1538) 69[address] POCT-GLUCOSE [id number] 11:26:00 Test Item Value Reference Range Interpretation Comments POC-GLUCOSE METER 191 mg/dL 70-110 H TESTED AT [address] ([facility]) (test code [address] [facility] [place] = 1538) [address] VANCOMYCIN LEVEL, [id number] 09:08:00 Test Item Value Reference Range Interpretation Comments VANCOMYCIN TROUGH ([facility]) (test 17.9 ug/mL 10.0-20.0 code = 522) VANCOMYCIN DOSING BY RX - follow upTROUGH PRIOR TO DOSE ON 01/20/18 AT 8:30am COMPREHENSIVE METABOLIC [id number] 06:57:00 Test Item Value Reference Range Interpretation [...] NOT APPLICABLE FOR DIALYSIS PATIEN TS. POCT-GLUCOSE [id number] 06:33:00 Test Item Value Reference Range Interpretation Comments POC-GLUCOSE METER 226 mg/dL 70-110 H TESTED AT [address] ([facility]) (test code POINT PK [facility] [place] = 1538) [id number] B-TYPE NATRIURETIC FACTOR (BNP)2018-01-20 06:00:00 Test Item Value Reference Range Interpretation Comments B-TYPE NATRIURETIC PEPTIDE (BEAKER) 371 pg/mL 0-100 H (test code = 700) CBC W/PLT COUNT & AUTO [id number] 05:40:00 Test Item Value Reference Range Interpretation [...] (BEAKER) (test code = 2801) BASIC METABOLIC [id number] 23:25:00 Test Item Value Reference Range Interpretation [...] 358) GLUCOSE RANDOM 198 mg/dL 70-110 H ([facility]) (test code = 652) CALCIUM ([facility]) 8.7 mg/dL 8.5-10.5 (test code = 697) EGFR ([facility]) (test 63 mL/min/1.73 ESTIMA JOSÉ LUIS GFR IS code = 1092) sq m NOT ACCURATE CREATININE CLEARANCE IN PREDICTING GLOMERULAR FILTRATION RATE . ESTIMATED GFR I S NOT APPLICABLE FOR DIALYSIS PATIEN TS. [id number] 23:19:00 Test Item Value Reference Range Interpretation Comments MAGNESIUM ([facility]) (test code = 1.9 mg/dL 1.5-3.0 627) POCT-GLUCOSE [id number] 21:12:00 Test Item Value Reference Range Interpretation Comments POC-GLUCOSE METER 237 mg/dL 70-110 H TESTED AT [address] ([facility]) (test code POINT PK [facility] [place] = 1538) [id number] POCT-GLUCOSE [id number] 17:00:00 Test Item Value Reference Range Interpretation Comments POC-GLUCOSE METER 156 mg/dL 70-110 H TESTED AT [address] ([facility]) (test code PO[address] PK [facility] [place] = 1538) [id number] POCT-GLUCOSE [id number] 12:51:00 Test Item Value Reference Range Interpretation Comments POC-GLUCOSE METER 135 mg/dL 70-110 H TESTED AT [address] ([facility]) (test code PO[address] PK [facility] [place] = 1538) [id number] POCT-GLUCOSE [id number] 08:16:00 Test Item Value Reference Range Interpretation Comments POC-GLUCOSE METER 212 mg/dL 70-110 H TESTED AT [address] ([facility]) (test code POINT PK [facility] [place] = 1538) [id number] VANCOMYCIN LEVEL, [id number] 21:00:00 Test Item Value Reference Range Interpretation Comments VANCOMYCIN TROUGH ([facility]) (test 14.3 ug/mL 10.0-20.0 code = 522) POCT-GLUCOSE [id number] 20:56:00 Test Item Value Reference Range Interpretation Comments POC-GLUCOSE METER 216 mg/dL 70-110 H TESTED AT [address] ([facility]) (test code POINT PK [facility] [place] = 1538) [id number] POCT-GLUCOSE [id number] 17:03:00 Test Item Value Reference Range Interpretation Comments POC-GLUCOSE METER 269 mg/dL 70-110 H TESTED AT [facility] [address] (BEAKER) (test code POINT [address] [facility] [place] = 1538) [address] POCT-GLUCOSE [id number] 06:22:00 Test Item Value Reference Range Interpretation Comments POC-GLUCOSE METER 115 mg/dL 70-110 H TESTED AT [facility] [address] (BEAKER) (test code [address] [facility] [place] = 1538) [address] BASIC METABOLIC [id number] 04:43:00 Test Item Value Reference Range Interpretation [...] S NOT APPLICABLE FOR DIALYSIS PATIEN TS. [id number] 04:37:00 Test Item Value Reference Range Interpretation Comments MAGNESIUM (BEAKER) (test code = 1.8 mg/dL 1.5-3.0 627) CBC W/PLT COUNT & AUTO [id number] 04:24:00 Test Item Value Reference Range Interpretation [...] PERCENT (BEAKER) (test code = 2801) POCT-GLUCOSE [id number] 20:55:00 Test Item Value Reference Range Interpretation Comments POC-GLUCOSE METER 145 mg/dL 70-110 H TESTED AT [facility] [address] (BEAKER) (test code [address] [facility] [place] = 1538) [address] VENOUS DOPPLER LEGS, [id number] 17:50:00Reason for exam:->r/o DVT FINAL REPORT Comparison: [...] MDReport Verified Date/Time: 01/17/2018 17:50:07 Reading Location: [facility] [place] Reading Room POCT-GLUCOSE [id number] 17:04:00 Test Item Value Reference Range Interpretation Comments POC-GLUCOSE METER 134 mg/dL 70-110 H TESTED AT [address] ([facility]) (test code [address] [facility] [place] = 1538) [address] POCT-GLUCOSE [id number] 11:54:00 Test Item Value Reference Range Interpretation Comments POC-GLUCOSE METER 219 mg/dL 70-110 H TESTED AT [address] ([facility]) (test code [address] [facility] [place] = 1538) [address] POCT-GLUCOSE [id number] 09:10:00 Test Item Value Reference Range Interpretation Comments POC-GLUCOSE METER 48 mg/dL 70-110 L TESTED AT [address] ([facility]) (test code = [address] [facility] 1538) [address] BASIC METABOLIC [id number] 06:27:00 Test Item Value Reference Range Interpretation [...] NOT APPLICABLE FOR DIALYSIS PATIEN TS. POCT-GLUCOSE [id number] 06:26:00 Test Item Value Reference Range Interpretation Comments POC-GLUCOSE METER 101 mg/dL 70-110 TESTED AT [address] ([facility]) (test code POINT [facility] [place] = 1538) [address] CBC W/PLT COUNT & AUTO [id number] 05:58:00 Test Item Value Reference Range Interpretation [...] PERCENT (BEAKER) (test code = 2801) TROPONIN [id number] 00:11:00 Test Item Value Reference Range Interpretation [...] = 700) RAD, CHEST, 1 VIEW, NON [id number] 00:09:00Reason for exam:->SHORTNESS OF BREATHReason for exam:->EDEMAReason [...] Arcelia Juárez Verified Date/Time: 01/17/2018 00:09:15 Reading Location:[facility] C013Y CT Body Reading Room BASIC METABOLIC [id number] 00:02:00 Test Item Value Reference Range Interpretation [...] PATIEN TS. CBC W/PLT COUNT & AUTO [id number] 23:35:00 Test Item Value Reference Range Interpretation [...] PERCENT (BEAKER) (test code = 2801) BLOOD [id number] 10:00:00 Test Item Value Reference Range Interpretation Comments CULTURE (BEAKER) (test No growth in 5 days code = 1095) BLOOD [id number] 10:00:00 Test Item Value Reference Range Interpretation Comments CULTURE (BEAKER) (test No growth in 5 days code = 1095) WOUND CULTURE + GRAM [id number] 10:10:00 Test Item Value Reference Interpretation Comments [...] (test code = cocci in pairs and 751064) clusters POCT-GLUCOSE [id number] 17:33:00 Test Item Value Reference Range Interpretation Comments POC-GLUCOSE METER 105 mg/dL 70-110 TESTED AT [address] (BEAKER) (test code POINT [facility] [place] = 153) [address] URINALYSIS W/ REFLEX URINE [id number] 09:56:00 Test Item Value Reference Range Interpretation [...] 1663) SOURCE(BEAKER) (test code = 2795) POCT-GLUCOSE [id number] 08:36:00 Test Item Value Reference Range Interpretation Comments POC-GLUCOSE METER 162 mg/dL 70-110 H TESTED AT [facility] [address] (BEAKER) (test code POINT [facility] [place] = 1538) [address] TSH/FREE T4 IF [id number] 07:04:00 Test Item Value Reference Range Interpretation Comments THYROID STIMULATING HORMONE 4.64 uIU/mL 0.35-5.50 (BEAKER) (test code = 772) LIPID [id number] 06:50:00 Test Item Value Reference Range Interpretation [...] 130-159 High 160-189 Very High >=190BASIC METABOLIC [id number] 06:48:00 Test Item Value Reference Range Interpretation [...] PATIEN TS. CBC W/PLT COUNT & AUTO [id number] 06:33:00 Test Item Value Reference Range Interpretation [...] PERCENT (BEAKER) (test code = 2801) HEMOGLOBIN [id number] 06:32:00 Test Item Value Reference Range Interpretation Comments HEMOGLOBIN A1C (BEAKER) (test code = 10.4 % 4.3-6.1 H 368) VENOUS DOPPLER LEGS, [id number] 05:53:00Reason for exam:->edema rule out DVT/ CellulitisFINAL [...] MDReport Verified Date/Time: 12/08/2017 05:53:51 Reading Location: [address] Body Reading Room TROPONILive [id number] 00:46:00 Test Item Value Reference Range Interpretation [...] acidosis, acute neurological disease, and persistent tachyarrhythmia.POCT-GLUCOSE [id number] 21:14:00 Test Item Value Reference Range Interpretation Comments POC-GLUCOSE METER 221 mg/dL 70-110 H TESTED AT [address] ([facility]) (test code POINT [facility] [place] = 1538) [address] POCT-GLUCOSE [id number] 16:43:00 Test Item Value Reference Range Interpretation Comments POC-GLUCOSE METER 371 mg/dL 70-110 H TESTED AT [address] ([facility]) (test code POINT [facility] [place] = 1538) [address] CREATINE KINASE (CK), TOTAL AND [id number] 14:26:00 Test Item Value Reference Range Interpretation Comments CREATINE KINASE TOTAL (AKER) 366 U/L 40-250 H (test code = 380) [facility] (test 8.1 ng/mL 0.0-4.9 H code = 750) CREATINE KINASE-MB INDEX ([facility]) 2.2 % (test code = [...] acute neurological disease, and persistent tachyarrhythmia.BASIC METABOLIC [id number] 14:00:00 Test Item Value Reference Range Interpretation [...] S NOT APPLICABLE FOR DIALYSIS PATIEN TS. [id number] 13:54:00 Test Item Value Reference Range Interpretation Comments MAGNESIUM (BEAKER) 2.1 mg/dL 1.5-3.0 Specimen slightly (test code = 627) hemolyzed B-TYPE NATRIURETIC FACTOR (BNP)2017-12-07 13:48:00 Test Item Value Reference Range Interpretation Comments B-TYPE NATRIURETIC PEPTIDE (BEAKER) 520 pg/mL 0-100 H (test code = 700) [id number] 13:19:00 Test Item Value Reference Range Interpretation [...] Information (Auto Output)CBC W/PLT COUNT & AUTO [id number] 13:07:00 Test Item Value Reference Range Interpretation [...] = 2801) RAD, CHEST, 1 VIEW, NON [id number] 12:44:00Reason for exam:->CHEST PAIN FINAL REPORT Chest [...] tiny left pleural effusion. Signed: Suki Woody Verified Date/Time: 12/07/2017 12:44:27 Reading Location: [address] Radiology Reading Room CREATINE KINASE (CK), TOTAL AND [id number] 02:36:00 Test Item Value Reference Range Interpretation [...] acute neurological disease, and persistent tachyarrhythmia.COMPREHENSIVE METABOLIC [id number] 02:28:00 Test Item Value Reference Range Interpretation [...] PATIEN TS. CBC W/PLT COUNT & AUTO [id number] 02:14:00 Test Item Value Reference Range Interpretation [...] PERCENT (BEAKER) (test code = 2801) KETONE, [id number] 01:55:00 Test Item Value Reference Range Interpretation Comments KETONES, BLOOD (BEAKER) (test code 0.2 mmol/L <0.4 = 1103) RAD, CHEST, 1 VIEW, NON [id number] 01:46:00Reason for exam:->pacemaker placement,pt feels it was [...] MDReport Verified Date/Time: 11/27/2017 01:46:38 Reading Location: [address] Reading Room POCT-GLUCOSE [id number] 13:29:00 Test Item Value Reference Range Interpretation Comments POC-GLUCOSE METER 214 mg/dL 70-110 H TESTED AT [address] ([facility]) (test code POINT [facility] [place] = 1538) [address] BASIC METABOLIC [id number] 06:48:00 Test Item Value Reference Range Interpretation [...] PATIEN TS. CBC W/PLT COUNT & AUTO [id number] 06:23:00 Test Item Value Reference Range Interpretation [...] L 0.00-0.20 (test code = 417) POCT-GLUCOSE [id number] 06:20:00 Test Item Value Reference Range Interpretation Comments POC-GLUCOSE METER 184 mg/dL 70-110 H TESTED AT [address] ([facility]) (test code POINT [facility] [place] = 1538) [address] POCT-GLUCOSE [id number] 20:47:00 Test Item Value Reference Range Interpretation Comments POC-GLUCOSE METER 323 mg/dL 70-110 H Notified R Live SCHULER/TESTED AT ([facility]) (test code [facility] [address] [facility] POINT = 1538) [address] [facility] [address] POCT-GLUCOSE [id number] 16:55:00 Test Item Value Reference Range Interpretation Comments POC-GLUCOSE METER 320 mg/dL 70-110 H TESTED AT [address] ([facility]) (test code POINT [facility] [place] = 1538) [address] B-TYPE NATRIURETIC FACTOR (BNP)2017-09-08 11:28:00 Test Item Value Reference Range Interpretation Comments B-TYPE NATRIURETIC PEPTIDE (AKER) 800 pg/mL 0-100 H (test code = 700) TROPONIN [id number] 11:25:00 Test Item Value Reference Range Interpretation Comments TROPONIN I ([facility]) (test code = 397) < [...] acute neurological disease, and persistent tachyarrhythmia.BASIC METABOLIC [id number] 11:17:00 Test Item Value Reference Range Interpretation [...] S NOT APPLICABLE FOR DIALYSIS PATIEN TS. [id number] 11:15:00 Test Item Value Reference Range Interpretation [...] (Auto Output)Final Information (Auto Output)Final Information (Auto Output)[id number] 11:11:00 Test Item Value Reference Range Interpretation Comments MAGNESIUM (BEAKER) (test code = 2.0 mg/dL 1.5-3.0 627) RAD, CHEST, 1 VIEW, NON [id number] 10:55:00Reason for exam:->chest pain FINAL REPORT CLINICAL HISTORY: chest pain TECHNIQUE: 1 view of the chest. COMPARISON: 06/10/2017 IMPRESSION: There is new pulmonary vascular congestion without lobar consolidation. There is blunting of the left costophrenic angle. The cardiomediastinal silhouette is magnified bytechnique with a pacemaker. Signed: Sia Hensleyeport Verified Date/Time: 09/08/2017 10:55:33Reading Location: [facility] Radiology Reading Room CBC W/PLT COUNT & AUTO [id number] 10:47:00 Test Item Value Reference Range Interpretation [...] 0.00-0.20 (test code = 417) HIV-1 PCR, [id number] 05:37:00 Test Item Value Reference Range Interpretation Comments HIV-1 RESULT HIV RNA not detected HIV RNA not detected COMPONENT (BEAKER) (test code = 2703) This test uses a Real-Time Polymerase Chain Reaction (RT-PCR) methodology to detect a highly conserved region of the HIV-1 gag gene and was performed using the JENNIFER AmpliPrep/JENNIFER TaqMan HIV-1 test kit version 2.0 ([employer]Reportable range for this assay is 20 - 10,000,000 copies per mL (1.3 - 7.0 Log copies/mL).DOUBLE-STRANDED DNA (DSDNA) [id number] 10:04:00 Test Item Value Reference Range Interpretation Comments ANTI-DNA DS (BEAKER) (test code = Negative 1055) TIFF TITER AND [id number] 11:54:00 Test Item Value Reference Range Interpretation Comments TIFF TITER (BEAKER) (test code = :160 1541) TIFF PATTERN (BEAKER) (test code = Homogeneous 1781) ANTI-NUCLEAR ANTIBODY (TIFF)2017-06-14 11:53:00 Test Item Value Reference Range Interpretation Comments ANTI-NUCLEAR ANTIBODY (TIFF) (BEAKER) Positive Negative A (test code = 418) POCT-GLUCOSE [id number] 05:52:00 Test Item Value Reference Range Interpretation Comments POC-GLUCOSE METER 96 mg/dL 70-110 TESTED AT [facility] [address] (test code = [address] [facility] 1538) [address] BASIC METABOLIC [id number] 05:15:00 Test Item Value Reference Range Interpretation [...] 358) GLUCOSE RANDOM 66 mg/dL 70-110 L ([facility]) (test code = 652) CALCIUM ([facility]) 9.0 mg/dL 8.5-10.5 (test code = 697) EGFR ([facility]) (test 60 mL/min/1.73 ESTIMA JOSÉ LUIS GFR IS code = 1092) sq m NOT ACCURATE CREATININE CLEARANCE IN PREDICTING GLOMERULAR FILTRATION RATE . ESTIMATED GFR I S NOT APPLICABLE FOR DIALYSIS PATIEN TS. POCT-GLUCOSE [id number] 05:09:00 Test Item Value Reference Range Interpretation Comments POC-GLUCOSE METER 67 mg/dL 70-110 L TESTED AT [address] ([facility]) (test code = POINT [facility] 1538) [address] POCT-GLUCOSE [id number] 21:55:00 Test Item Value Reference Range Interpretation Comments POC-GLUCOSE METER 142 mg/dL 70-110 H TESTED AT [address] ([facility]) (test code POINT [facility] [place] = 1538) [address] POCT-GLUCOSE [id number] 19:05:00 Test Item Value Reference Range Interpretation Comments POC-GLUCOSE METER 139 mg/dL 70-110 H TESTED AT [address] ([facility]) (test code POINT [facility] [place] = 1538) [address] POCT-GLUCOSE [id number] 16:54:00 Test Item Value Reference Range Interpretation Comments POC-GLUCOSE METER 59 mg/dL 70-110 L TESTED AT [address] ([facility]) (test code = [facility] [place] [facility] [address] POCT-GLUCOSE [id number] 13:19:00 Test Item Value Reference Range Interpretation Comments POC-GLUCOSE METER 235 mg/dL 70-110 H TESTED AT [address] ([facility]) (test code POINT [facility] [place] = 1538) [address] POCT-GLUCOSE [id number] 06:52:00 Test Item Value Reference Range Interpretation Comments POC-GLUCOSE METER 113 mg/dL 70-110 H TESTED AT [address] ([facility]) (test code POINT [facility] [place] = 1538) [address] POCT-GLUCOSE [id number] 21:48:00 Test Item Value Reference Range Interpretation Comments POC-GLUCOSE METER 183 mg/dL 70-110 H TESTED AT [address] [facility] (test code POINT [facility] [place] = 1538) [address] POCT-GLUCOSE [id number] 17:22:00 Test Item Value Reference Range Interpretation Comments POC-GLUCOSE METER 262 mg/dL 70-110 H TESTED AT [address] ([facility]) (test code [address] [facility] [place] = 1538) [address] POCT-GLUCOSE [id number] 12:30:00 Test Item Value Reference Range Interpretation Comments POC-GLUCOSE METER 131 mg/dL 70-110 H TESTED AT [address] ([facility]) (test code POINT [facility] [place] = 1538) [address] MICROALBUMIN, RANDOM [id number] 12:25:00 Test Item Value Reference Range Interpretation Comments MICROALBUMIN URINE ([facility]) (test 59.0 mg/dL code = 1794) Reference Range: No NormalsHEPATITIS PANEL, [id number] 11:31:00 Test Item Value Reference Range Interpretation Comments HEPATITIS A IGM ANTIBODY (BEAKER) Nonreactive Nonreactive (test code = 498) HEPATITIS B CORE IGM ANTIBODY Nonreactive Nonreactive (BEAKER) (test code = 645) [facility] C [facility]IB[facility] Nonreactive Nonreactive (test code = 367) HEPATITIS B SURFACE ANTIGEN (2) Nonreactive Nonreactive (BEAKER) (test code = 2585) COMPLEMENT COMPONENT [id number] 11:09:00 Test Item Value Reference Range Interpretation Comments C4 COMPLEMENT (BEAKER) (test code = 28 mg/dL 15-57 394) COMPLEMENT COMPONENT [id number] 11:09:00 Test Item Value Reference Range Interpretation Comments C3 COMPLEMENT (BEAKER) (test code = 145 mg/dL 82-193 393) POCT-GLUCOSE [id number] 06:48:00 Test Item Value Reference Range Interpretation Comments POC-GLUCOSE METER 75 mg/dL 70-110 TESTED AT [address] ([facility]) (test code = [facility] [place] [facility]) [address] TROPONIN [id number] 05:58:00 Test Item Value Reference Range Interpretation [...] acute neurological disease, and persistent tachyarrhythmia.BASIC METABOLIC [id number] 05:49:00 Test Item Value Reference Range Interpretation [...] S NOT APPLICABLE FOR DIALYSIS PATIEN TS. [id number] 05:48:00 Test Item Value Reference Range Interpretation Comments PHOSPHORUS (BEAKER) (test code = 4.2 mg/dL 2.5-4.5 604) POCT-GLUCOSE [id number] 21:18:00 Test Item Value Reference Range Interpretation Comments POC-GLUCOSE METER 146 mg/dL 70-110 H TESTED AT [facility] [address] (BEAKER) (test code [address] [facility] [place] = 1538) [address] TROPONIN [id number] 18:26:00 Test Item Value Reference Range Interpretation [...] acidosis, acute neurological disease, and persistent tachyarrhythmia.POCT-GLUCOSE [id number] 17:07:00 Test Item Value Reference Range Interpretation Comments POC-GLUCOSE METER 97 mg/dL 70-110 TESTED AT [address] ([facility]) (test code = [address] [facility] 1538) [address] POCT-GLUCOSE [id number] 13:31:00 Test Item Value Reference Range Interpretation Comments POC-GLUCOSE METER 125 mg/dL 70-110 H TESTED AT [address] ([facility]) (test code [address] [facility] = 1538) [address] TROPONIN [id number] 06:11:00 Test Item Value Reference Range Interpretation Comments TROPONIN I ([facility]) (test code = 397) < [...] acidosis, acute neurological disease, and persistent tachyarrhythmia.LIPID [id number] 06:05:00 Test Item Value Reference Range Interpretation Comments TRIGLYCERIDES ([facility]) (test code = 75 mg/dL 540) CHOLESTEROL ([facility]) (test code = 174 mg/dL 631) HDL CHOLESTEROL ([facility]) (test code 26 mg/dL = 976) LDL CHOLESTEROL CALCULATED ([facility]) 133 mg/dL (test code = 633) Triglyceride Reference Range: Low Risk <150 Borderline 150-199 High Risk 200-499 Very High Risk >=500Cholesterol Reference Range: Low Risk <200 Borderline 200-239 High Risk >240HDL Cholesterol Reference Range: Low Risk >=60 High Risk <40LDL Cholesterol Reference Range: Optimal <100 Near Optimal 100-129 Borderline 130-159 High 160-189 Very High >=190BASIC METABOLIC [id number] 06:03:00 Test Item Value Reference Range Interpretation [...] S NOT APPLICABLE FOR DIALYSIS PATIEN TS. [id number] 05:57:00 Test Item Value Reference Range Interpretation Comments MAGNESIUM (BEAKER) (test code = 1.9 mg/dL 1.5-3.0 627) HEMOGLOBIN [id number] 05:56:00 Test Item Value Reference Range Interpretation Comments HEMOGLOBIN A1C (BEAKER) (test code = 7.7 % 4.3-6.1 H 368) CBC W/PLT COUNT & AUTO [id number] 05:31:00 Test Item Value Reference Range Interpretation [...] L 0.00-0.20 (test code = 417) TROPONIN [id number] 22:53:00 Test Item Value Reference Range Interpretation [...] acute neurological disease, and persistent tachyarrhythmia.U/S, ABDOMINAL, [id number] 22:08:00Reason for exam:->AscitesReason for exam:->BLOATEDFINAL REPORT U/S, [...] MDReport Verified Date/Time: 06/10/2017 22:08:13 Reading Location: [address] Reading Room URINALYSIS W/ REFLEX URINE [id number] 18:41:00 Test Item Value Reference Range Interpretation [...] 1663) SOURCE(BEAKER) (test code = 2795) TROPONIN [id number] 13:07:00 Test Item Value Reference Range Interpretation [...] H (test code = 700) HEPATIC FUNCTION [id number] 12:59:00 Test Item Value Reference Range Interpretation [...] (test code = 23 U/L 5-50 347) [id number] 12:59:00 Test Item Value Reference Range Interpretation Comments LIPASE (BEAKER) (test code = 749) 19 U/L 6-51 BASIC METABOLIC [id number] 12:57:00 Test Item Value Reference Range Interpretation [...] PATIEN TS. CBC W/PLT COUNT & AUTO [id number] 12:37:00 Test Item Value Reference Range Interpretation [...] = 417) RAD, CHEST, 1 VIEW, NON [id number] 12:32:00Reason for exam:->shortness of breathReason for exam:->BLOATEDShould this be performed [facility]?->YesFINAL REPORT Comparison: 04/06/2012 TECHNIQUE: Single view of the chest FINDINGS: Lung volumes are low. Prominence of the cardiac silhouette and vasculature which may be related topoor inspiration and technique . There is no gross consolidation identified. No overt edema or largepleural effusion. Left-sided pacing device noted. No acute skeletal abnormality. Signed: Veronica Bonilla Verified Date/Time: 06/10/2017 12:32:49 Reading Location: [facility] Radiology Reading Room POCT-GLUCOSE [id number] 07:40:00 Test Item Value Reference Range Interpretation Comments POC-GLUCOSE METER 100 mg/dL 70-110 TESTED AT [address] (BEAKER) (test code POINT [address] [facility] = 1538) [address] POCT-GLUCOSE [id number] 06:57:00 Test Item Value Reference Range Interpretation Comments POC-GLUCOSE METER 50 mg/dL 70-110 L TESTED AT [address] [facility] (test code = [address] [facility] 1538) [address] POCT-GLUCOSE [id number] 20:59:00 Test Item Value Reference Range Interpretation Comments POC-GLUCOSE METER 142 mg/dL 70-110 H TESTED AT [address] [facility] (test code [address]INT [address] [facility] [place] = 1538) [address] POCT-GLUCOSE [id number] 17:23:00 Test Item Value Reference Range Interpretation Comments POC-GLUCOSE METER 123 mg/dL 70-110 H TESTED AT [address] ([facility] (test code [address] [facility] [place] = 1538) [address] POCT-GLUCOSE [id number] 12:38:00 Test Item Value Reference Range Interpretation Comments POC-GLUCOSE METER 153 mg/dL 70-110 H TESTED AT [address] [facility] (test code [address] [facility] = 1538) [address] BASIC METABOLIC [id number] 05:49:00 Test Item Value Reference Range Interpretation [...] NOT APPLICABLE FOR DIALYSIS PATIEN TS. POCT-GLUCOSE [id number] 05:36:00 Test Item Value Reference Range Interpretation Comments POC-GLUCOSE METER 74 mg/dL 70-110 TESTED AT [facility] [address] (BEAKER) (test code = [address] [facility] [place] 1538) [address] CBC W/PLT COUNT & AUTO [id number] 05:29:00 Test Item Value Reference Range Interpretation [...] L 0.00-0.20 (test code = 417) POCT-GLUCOSE [id number] 19:53:00 Test Item Value Reference Range Interpretation Comments POC-GLUCOSE METER 120 mg/dL 70-110 H TESTED AT [address] ([facility]) (test code POINT [facility] [place] = 1538) [address] POCT-GLUCOSE [id number] 15:41:00 Test Item Value Reference Range Interpretation Comments POC-GLUCOSE METER 135 mg/dL 70-110 H TESTED AT [address] ([facility]) (test code POINT [facility] [place] = 1538) [address] RAD, CHEST, 1 VIEW, NON [id number] 12:31:00Reason for exam:->follow up FINAL REPORT COMPARISON: 04/03/2017 TECHNIQUE: Single view of the chest FINDINGS: Small left pleural effusion with adjacent airspace disease. There is mild vascular congestion elsewhere. Cardiac silhouette is enlarged. Left-sided pacing device noted. Signed: Gab Bonilla MDReport Verified Date/Time: 04/06/2017 12:31:34 Reading Location: [facility] Radiology Reading Room POCT- GLUCOSE [id number] 11:39:00 Test Item Value Reference Range Interpretation Comments POC-GLUCOSE METER 184 mg/dL 70-110 H TESTED AT [address] (BEAKER) (test code [address] [facility] [place] = 1538) [id number] POCT-GLUCOSE [id number] 07:18:00 Test Item Value Reference Range Interpretation Comments POC-GLUCOSE METER 83 mg/dL 70-110 TESTED AT [facility] [address] (BEAKER) (test code = [address] [facility] [place] 1538) [address] BASIC METABOLIC [id number] 06:01:00 Test Item Value Reference Range Interpretation [...] = 700) CBC W/PLT COUNT & AUTO [id number] 05:39:00 Test Item Value Reference Range Interpretation [...] L 0.00-0.20 (test code = 417) POCT-GLUCOSE [id number] 21:56:00 Test Item Value Reference Range Interpretation Comments POC-GLUCOSE METER 144 mg/dL 70-110 H TESTED AT [address] [facility] (test code POINT [facility] [place] = 1538) [address] POCT-GLUCOSE [id number] 16:38:00 Test Item Value Reference Range Interpretation Comments POC-GLUCOSE METER 153 mg/dL 70-110 H TESTED AT [address] [facility] (test code POINT [facility] [place] = 1538) [address] POCT-GLUCOSE [id number] 12:52:00 Test Item Value Reference Range Interpretation Comments POC-GLUCOSE METER 144 mg/dL 70-110 H TESTED AT [facility] [address] (BEAKER) (test code [address] [facility] [place] = 1538) [address] POCT-GLUCOSE [id number] 06:07:00 Test Item Value Reference Range Interpretation Comments POC-GLUCOSE METER 124 mg/dL 70-110 H TESTED AT [facility] [address] (BEAKER) (test code [address] [facility] [place] = 1538) [address] BASIC METABOLIC [id number] 05:26:00 Test Item Value Reference Range Interpretation [...] S NOT APPLICABLE FOR DIALYSIS PATIEN TS. [id number] 05:20:00 Test Item Value Reference Range Interpretation Comments MAGNESIUM (BEAKER) (test code = 2.4 mg/dL 1.5-3.0 627) CBC W/PLT COUNT & AUTO [id number] 05:19:00 Test Item Value Reference Range Interpretation [...] L 0.00-0.20 (test code = 417) POCT-GLUCOSE [id number] 19:59:00 Test Item Value Reference Range Interpretation Comments POC-GLUCOSE METER 198 mg/dL 70-110 H TESTED AT [address] ([facility]) (test code POINT [facility] [place] = 1538) [address] POCT-GLUCOSE [id number] 16:34:00 Test Item Value Reference Range Interpretation Comments POC-GLUCOSE METER 230 mg/dL 70-110 H TESTED AT [facility] [address] (BEAKER) (test code [address] [facility] [place] = 1538) [address] POCT-GLUCOSE [id number] 13:02:00 Test Item Value Reference Range Interpretation Comments POC-GLUCOSE METER 273 mg/dL 70-110 H TESTED AT [facility] [address] (BEAKER) (test code [address] [facility] [place] = 1538) [address] B-TYPE NATRIURETIC FACTOR (BNP)2017-04-04 06:55:00 Test Item Value Reference Range Interpretation Comments B-TYPE NATRIURETIC PEPTIDE (BEAKER) 824 pg/mL 0-100 H (test code = 700) BASIC METABOLIC [id number] 06:47:00 Test Item Value Reference Range Interpretation [...] S NOT APPLICABLE FOR DIALYSIS PATIEN TS. [id number] 06:41:00 Test Item Value Reference Range Interpretation Comments MAGNESIUM (BEAKER) (test code = 2.2 mg/dL 1.5-3.0 627) CBC W/PLT COUNT & AUTO [id number] 06:32:00 Test Item Value Reference Range Interpretation [...] 0-100 H (test code = 700) TROPONIN [id number] 12:05:00 Test Item Value Reference Range Interpretation [...] neurological disease, and persistent tachyarrhythmia.RAD, CHEST, 2 [id number] 11:59:00 Reason for exam:->SOBFINAL REPORT History: Shortness [...] Question mild pulmonary edema. Signed: Malcolm Garcia [facility] Verified Date/Time: 04/03/2017 11:59:26 Reading Location: [facility] [id number] Ortho Consult Reading Room BASIC METABOLIC [id number] 11:57:00 Test Item Value Reference Range Interpretation [...] PATIEN TS. CBC W/PLT COUNT & AUTO [id number] 11:42:00 Test Item Value Reference Range Interpretation [...] = 417) RAD, CHEST, 1 VIEW, NON [id number] 11:12:00Reason for exam:->follow up FINAL REPORT Chest, 1 view Clinical history: follow up Comparison: 03/25/2017Discussion: Left-sided pacemaker in position without pneumothorax. Small left pleural effusion is seen with atelectasis. The cardiac silhouette is enlarged with mild perihilar edema. No acute osseous abnormality. Signed: Jamir Mai MDReport Verified Date/Time: 03/27/2017 11:12:12 Reading Location: [address] Ortho Consult Reading Room TROPONIN [id number] 08:29:00 Test Item Value Reference Range Interpretation [...] = 700) CREATINE KINASE (CK), TOTAL AND [id number] 08:27:00 Test Item Value Reference Range Interpretation Comments CREATINE KINASE TOTAL (BEAKER) 303 U/L 40-250 H (test code = 380) CREATINE KINASE-MB (BEAKER) (test 5.9 ng/mL 0.0-4.9 H code = 750) CREATINE KINASE-MB INDEX (BEAKER) 1.9 % (test code = 395) CK-MB Reference Range:<5 Normal5-10 Borderline>10 AbnormalBASIC METABOLIC [id number] 08:18:00 Test Item Value Reference Range Interpretation [...] PATIEN TS. CBC W/PLT COUNT & AUTO [id number] 07:44:00 Test Item Value Reference Range Interpretation [...] L 0.00-0.20 (test code = 417) POCT-GLUCOSE [id number] 05:54:00 Test Item Value Reference Range Interpretation Comments POC-GLUCOSE METER 226 mg/dL 70-110 H TESTED AT [address] ([facility]) (test code POINT [facility] [place] = 1538) [address] POCT-GLUCOSE [id number] 20:54:00 Test Item Value Reference Range Interpretation Comments POC-GLUCOSE METER 180 mg/dL 70-110 H TESTED AT [address] ([facility]) (test code POINT [facility] [place] = 1538) [address] POCT-GLUCOSE [id number] 16:40:00 Test Item Value Reference Range Interpretation Comments POC-GLUCOSE METER 262 mg/dL 70-110 H TESTED AT [facility] [address] ([facility]) (test code [address] [facility] [place] = 1538) [address] LIPID [id number] 15:41:00 Test Item Value Reference Range Interpretation Comments TRIGLYCERIDES (RAADAKER) (test code = 86 mg/dL 540) CHOLESTEROL (RAADAKER) (test code = 203 mg/dL 631) HDL [...] High 160-189 Very High >=190TSH/FREE T4 IF [id number] 15:27:00 Test Item Value Reference Range Interpretation Comments THYROID STIMULATING HORMONE 4.34 uIU/mL 0.35-5.50 [facility] (test code = 772) TROPONIN [id number] 15:18:00 Test Item Value Reference Range Interpretation Comments TROPONIN I (RAADAKER) (test code = 0.54 ng/mL 0.00-0.15 HH [...] H (test code = 700) BASIC METABOLIC [id number] 15:03:00 Test Item Value Reference Range Interpretation [...] NOT APPLICABLE FOR DIALYSIS PATIEN TS. HEMOGLOBIN [id number] 08:23:00 Test Item Value Reference Range Interpretation Comments HEMOGLOBIN A1C (BEAKER) (test code = 8.8 % 4.3-6.1 H 368) CBC W/PLT COUNT & AUTO [id number] 07:23:00 Test Item Value Reference Range Interpretation [...] L 0.00-0.20 (test code = 417) POCT-GLUCOSE [id number] 06:53:00 Test Item Value Reference Range Interpretation Comments POC-GLUCOSE METER 176 mg/dL 70-110 H TESTED AT [facility] (BEAKER) (test code [address] [facility] [place] = 1538) [address] TROPONIN [id number] 23:25:00 Test Item Value Reference Range Interpretation [...] Reference Range Interpretation Comments CREATINE KINASE TOTAL ([employer]AKER) 294 U/L 40-250 H (test code = 380) CREATINE KINASE-MB ([employer]AKER) (test 5.1 ng/mL 0.0-4.9 H code = 750) CREATINE KINASE-MB INDEX ([employer]AKER) 1.7 % (test code = 395) CK-MB Reference Range:<5 Normal5-10 Borderline>10 AbnormalPOCT-GLUCOSE [id number] 20:54:00 Test Item Value Reference Range Interpretation Comments POC-GLUCOSE METER 157 mg/dL 70-110 H TESTED AT [address] ([employer]) (test code POINT [facility] [place] = 1538) [address] TROPONIN [id number] 14:46:00 Test Item Value Reference Range Interpretation Comments TROPONIN I (BEAKER) (test code = 0.60 ng/mL 0.00-0.15 397) [...] 0-100 H (test code = 700) PROTHROMBIN [id number] 14:42:00 Test Item Value Reference Range Interpretation Comments PROTIME ([employer]AKER) (test code = 11.4 seconds 9.3-12.0 759) INR (BEAKER) (test code = 370) 1.1 <=5.9 RECOMMENDED COUMADIN/WARFARIN INR THERAPY RANGESSTANDARD DOSE: 2.0 - 3.0 Includes: PROPHYLAXIS forvenous thrombosis, systemic embolization; TREATMENT for venous thrombosis and/or pulmonary embolus.HIGH RISK: Target INR is 2.5-3.5 for patients with mechanical heart valves.[id number] 14:42:00 Test Item Value Reference Range Interpretation Comments PARTIAL THROMBOPLASTIN TIME 27.0 seconds 23.0-35.0 (BEAKER) (test code = 760) CREATINE KINASE (CK), TOTAL AND [id number] 14:41:00 Test Item Value Reference Range Interpretation Comments CREATINE KINASE TOTAL (BEAKER) 328 U/L 40-250 H (test code = 380) CREATINE KINASE-MB (BEAKER) (test 5.9 ng/mL 0.0-4.9 H code = 750) CREATINE KINASE-MB INDEX (BEAKER) 1.8 % (test code = 395) CK-MB Reference Range:<5 Normal5-10 Borderline>10 AbnormalCOMPREHENSIVE METABOLIC [id number] 14:34:00 Test Item Value Reference Range Interpretation [...] PATIEN TS. CBC W/PLT COUNT & AUTO [id number] 14:04:00 Test Item Value Reference Range Interpretation [...] = 417) RAD, CHEST, 1 VIEW, NON [id number] 13:52:00Reason for exam:->SHORTNESS OF BREATHReason for exam:->EDEMAShould [...] atelectasis 2. Pulmonary vascular congestion. Signed: Brian Kilgoreeport Verified Date/Time: 03/25/2017 13:52:22 Reading Location: [facility] Radiology Reading Room POCT- GLUCOSE [id number] 12:04:00 Test Item Value Reference Range Interpretation Comments POC-GLUCOSE METER 171 mg/dL 70-110 H TESTED AT [facility] [address] (BEAKER) (test code [address] [facility] [place] = 1538) [address] BASIC METABOLIC [id number] 08:14:00 Test Item Value Reference Range Interpretation [...] PATIEN TS. CBC W/PLT COUNT & AUTO [id number] 07:57:00 Test Item Value Reference Range Interpretation [...] L 0.00-0.20 (test code = 417) POCT-GLUCOSE [id number] 07:11:00 Test Item Value Reference Range Interpretation Comments POC-GLUCOSE METER 164 mg/dL 70-110 H TESTED AT [address] ([facility]) (test code POINT [facility] [place] = 1538) [address] POCT-GLUCOSE [id number] 22:24:00 Test Item Value Reference Range Interpretation Comments POC-GLUCOSE METER 222 mg/dL 70-110 H TESTED AT [address] ([facility]) (test code POINT [facility] [place] = 1538) [address] POCT-GLUCOSE [id number] 17:12:00 Test Item Value Reference Range Interpretation Comments POC-GLUCOSE METER 187 mg/dL 70-110 H TESTED AT [address] ([facility]) (test code POINT [facility] [place] = 1538) [address] POCT-GLUCOSE [id number] 17:12:00 Test Item Value Reference Range Interpretation Comments POC-GLUCOSE METER 190 mg/dL 70-110 H TESTED AT [address] ([facility]) (test code POINT [facility] [place] = 1538) [address] POCT-GLUCOSE [id number] 05:55:00 Test Item Value Reference Range Interpretation Comments POC-GLUCOSE METER 181 mg/dL 70-110 H TESTED AT [address] ([facility]) (test code POINT [facility] [place] = 1538) [address] POCT-GLUCOSE [id number] 21:23:00 Test Item Value Reference Range Interpretation Comments POC-GLUCOSE METER 305 mg/dL 70-110 H Baby teste d Mother ID ([facility]) (test code used/[facility] [place] [place] [address] = 1538) [address] [facility] [address] POCT-GLUCOSE [id number] 19:05:00 Test Item Value Reference Range Interpretation Comments POC-GLUCOSE METER 181 mg/dL 70-110 H TESTED AT [address] ([facility]) (test code POINT [facility] [place] = 1538) [address] POCT-GLUCOSE [id number] 19:04:00 Test Item Value Reference Range Interpretation Comments POC-GLUCOSE METER 252 mg/dL 70-110 H TESTED AT [address] ([facility]) (test code POINT [facility] [place] = 1538) [address] POCT-GLUCOSE [id number] 19:04:00 Test Item Value Reference Range Interpretation Comments POC-GLUCOSE METER 175 mg/dL 70-110 H TESTED AT [address] ([facility]) (test code POINT [facility] [place] = 1538) [address] POCT-GLUCOSE [id number] 06:14:00 Test Item Value Reference Range Interpretation Comments POC-GLUCOSE METER 212 mg/dL 70-110 H TESTED AT [address] ([facility]) (test code POINT [facility] [place] = 1538) [address] CREATINE KINASE (CK), TOTAL AND [id number] 03:39:00 Test Item Value Reference Range Interpretation Comments CREATINE KINASE TOTAL ([facility]) 174 U/L 40-250 (test code = 380) CREATINE KINASE-MB ([facility]) (test 4.7 ng/mL 0.0-4.9 code = 750) CREATINE KINASE-MB INDEX ([facility]) 2.7 % (test code = 395) CK-MB Reference Range:<5 Normal5-10 Borderline>10 AbnormalTROPONIN I 2017-02-05 03:39:00 Test Item Value Reference Range Interpretation Comments TROPONIN I ([facility]) (test code = 0.07 ng/mL 0.00-0.15 397) [...] acidosis, acute neurological disease, and persistent tachyarrhythmia.LIPID [id number] 03:33:00 Test Item Value Reference Range Interpretation [...] 130-159 High 160-189 Very High >=190BASIC METABOLIC [id number] 03:31:00 Test Item Value Reference Range Interpretation [...] NOT APPLICABLE FOR DIALYSIS PATIEN TS. HEMOGLOBIN [id number] 03:30:00 Test Item Value Reference Range Interpretation Comments HEMOGLOBIN A1C (BEAKER) (test code = 9.7 % 4.3-6.1 H 368) CBC W/PLT COUNT & AUTO [id number] 03:18:00 Test Item Value Reference Range Interpretation [...] code = 416) BASOPHILS ABSOLUTE COUNT (AKER) 0.00 K/ L 0.00-0.20 (test code = 417) POCT-GLUCOSE [id number] 21:13:00 Test Item Value Reference Range Interpretation Comments POC-GLUCOSE METER 285 mg/dL 70-110 H TESTED AT [address] ([facility]) (test code POINT [facility] [place] = 1538) [address] POCT-GLUCOSE [id number] 21:13:00 Test Item Value Reference Range Interpretation Comments POC-GLUCOSE METER 288 mg/dL 70-110 H TESTED AT [address] ([facility]) (test code POINT [facility] [place] = 1538) [address] CREATINE KINASE (CK), TOTAL AND [id number] 16:27:00 Test Item Value Reference Range Interpretation Comments CREATINE KINASE TOTAL ([facility]) 202 U/L 40-250 (test code = 380) CREATINE KINASE-MB ([facility]) (test 7.3 ng/mL 0.0-4.9 H code = 750) CREATINE KINASE-MB INDEX ([facility]) 3.6 % (test code = 395) CK-MB Reference Range:<5 Normal5-10 Borderline>10 AbnormalTROPONIN I 2017-02-04 16:26:00 Test Item Value Reference Range Interpretation Comments TROPONIN I ([facility]) (test code = 0.05 ng/mL [...] and persistent tachyarrhythmia.RAD, CHEST, 1 VIEW, NON [id number] 09:17:00Reason for exam:->chest painFINAL REPORT Chest one [...] pneumothorax. Osseous structures are intact. Signed: Lacie Gonzalesort Verified Date/Time: 02/04/2017 09:17:01 Reading Location: [facility] Radiology Reading Room TROPONIN [id number] 09:14:00 Test Item Value Reference Range Interpretation [...] = 700) CREATINE KINASE (CK), TOTAL AND [id number] 09:13:00 Test Item Value Reference Range Interpretation Comments CREATINE KINASE TOTAL (BEAKER) 235 U/L 40-250 (test code = 380) CREATINE KINASE-MB (BEAKER) (test 6.0 ng/mL 0.0-4.9 H code = 750) CREATINE KINASE-MB INDEX (BEAKER) 2.6 % (test code = 395) CK-MB Reference Range:<5 Normal5-10 Borderline>10 AbnormalBASIC METABOLIC [id number] 09:05:00 Test Item Value Reference Range Interpretation [...] S NOT APPLICABLE FOR DIALYSIS PATIEN TS. [id number] 09:03:00 Test Item Value Reference Range Interpretation [...] is 2.5-3.5 for patients with mechanical heart valves.[id number] 09:00:00 Test Item Value Reference Range Interpretation Comments MAGNESIUM (BEAKER) (test code = 2.0 mg/dL 1.5-3.0 627) CBC W/PLT COUNT & AUTO [id number] 08:50:00 Test Item Value Reference Range Interpretation [...] = 700) CREATINE KINASE (CK), TOTAL AND [id number] 11:53:00 Test Item Value Reference Range Interpretation Comments CREATINE KINASE TOTAL (BEAKER) 228 U/L 40-250 (test code = 380) CREATINE KINASE-MB (BEAKER) (test 4.8 ng/mL 0.0-4.9 code = 750) CREATINE KINASE-MB INDEX (BEAKER) 2.1 % (test code = 395) CK-MB Reference Range:<5 Normal5-10 Borderline>10 AbnormalBASIC METABOLIC [id number] 11:52:00 Test Item Value Reference Range Interpretation [...] NOT APPLICABLE FOR DIALYSIS PATIEN TS. TROPONIN [id number] 11:40:00 Test Item Value Reference Range Interpretation [...] acidosis, acute neurological disease, and persistent tachyarrhythmia.PROTHROMBIN [id number] 10:16:00 Test Item Value Reference Range Interpretation [...] = 417) RAD, CHEST, 1 VIEW, NON [id number] 09:42:00Reason for exam:->SHORTNESS OF BREATHOn \\T\\ off [...] MDReport Verified Date/Time: 12/01/2016 09:42:01 Reading Location: [facility] Radiology Reading Room POCT-GLUCOSE [id number] 18:07:00 Test Item Value Reference Range Interpretation Comments POC-GLUCOSE METER 159 mg/dL 70-110 H TESTED AT [address]) (test code POINT [facility] [place] = 1538) [address] POCT-GLUCOSE [id number] 13:56:00 Test Item Value Reference Range Interpretation Comments POC-GLUCOSE METER 218 mg/dL 70-110 H TESTED AT [address] ([facility]) (test code [address] [facility] [place] = 1538) [address] POCT-GLUCOSE [id number] 06:26:00 Test Item Value Reference Range Interpretation Comments POC-GLUCOSE METER 118 mg/dL 70-110 H TESTED AT [address] ([facility]) (test code POINT [facility] [place] = 1538) [address] HEMOGLOBIN [id number] 02:55:00 Test Item Value Reference Range Interpretation Comments HEMOGLOBIN A1C ([facility]) (test code = 9.3 % 4.3-6.1 H 368) TROPONIN [id number] 02:45:00 Test Item Value Reference Range Interpretation [...] 130-159 High 160-189 Very High >=190BASIC METABOLIC [id number] 02:38:00 Test Item Value Reference Range Interpretation [...] PATIEN TS. CBC W/PLT COUNT & AUTO [id number] 02:37:00 Test Item Value Reference Range Interpretation [...] L 0.00-0.20 (test code = 417) POCT-GLUCOSE [id number] 21:41:00 Test Item Value Reference Range Interpretation Comments POC-GLUCOSE METER 222 mg/dL 70-110 H TESTED AT [address] ([facility]) (test code POINT [facility] [place] = 1538) [address] POCT-GLUCOSE [id number] 17:42:00 Test Item Value Reference Range Interpretation Comments POC-GLUCOSE METER 187 mg/dL 70-110 H TESTED AT [address] ([facility]) (test code POINT [facility] [place] = 1538) [address] TROPONIN [id number] 17:08:00 Test Item Value Reference Range Interpretation Comments TROPONIN I ([facility]) (test code = 0.04 ng/mL [...] 395) CK-MB Reference Range:<5 Normal5-10 Borderline>10 AbnormalPOCT-GLUCOSE [id number] 12:19:00 Test Item Value Reference Range Interpretation Comments POC-GLUCOSE METER 284 mg/dL 70-110 H TESTED AT [facility] [address] (BEAKER) (test code [address] [facility] [place] = 1538) [address] URINALYSIS W/ REFLEX URINE [id number] 08:37:00 Test Item Value Reference Range Interpretation [...] 0-100 H (test code = 700) CALCIUM, [id number] 06:41:00 Test Item Value Reference Range Interpretation Comments CALCIUM IONIZED (BEAKER) (test 1.14 mmol/L 1.12-1.27 code = 698) PH, BLOOD (BEAKER) (test code = 7.43 1810) CREATINE KINASE (CK), TOTAL AND [id number] 06:14:00 Test Item Value Reference Range Interpretation [...] 0.00-0.20 (test code = 417) BASIC METABOLIC [id number] 06:08:00 Test Item Value Reference Range Interpretation [...] NOT APPLICABLE FOR DIALYSIS PATIEN TS. PROTHROMBIN [id number] 06:01:00 Test Item Value Reference Range Interpretation Comments PROTIME (BEAKER) (test code = 10.2 seconds 9.3-12.0 759) INR (BEAKER) (test code = 370) 1.0 <=5.9 RECOMMENDED COUMADIN/WARFARIN INR THERAPY RANGESSTANDARD DOSE: 2.0 - 3.0 Includes: PROPHYLAXIS forvenous thrombosis, systemic embolization; TREATMENT for venous thrombosis and/or pulmonary embolus.HIGH RISK: Target INR is 2.5-3.5 for patients with mechanical heart valves.TROPONIN [id number] 05:35:00 Test Item Value Reference Range Interpretation [...] CK-MB Reference Range:<5 Normal5-10 Borderline>10 AbnormalBASIC METABOLIC [id number] 05:27:00 Test Item Value Reference Range Interpretation [...] PATIEN TS. CBC W/PLT COUNT & AUTO [id number] 05:11:00 Test Item Value Reference Range Interpretation [...]
[2021-08-07 18:59] LABS: Absolute Lymphocytes (CBC) 0.4 K/uL (0.7-4.9); Hematocrit 39.9 % (39.6-49.0); Lymphocytes % 2.3 % (15.3-44.8); MPV 8.6 fL (7.6-11.3); RBC Red Blood Cell Count 4.34 M/uL (4.33-5.43)
[2021-08-07 19:18] LABS: Potassium 4.7 mmol/L (3.5-5.1); Troponin High Sensitivity 44.2 pg/mL (<58.9)
[2021-08-07] MEDS ORDERED: ACETAMINOPHEN 500 MG TAB ONE (19:27)
--- NOTE | 2021-08-07 19:56 | RAD REPORT ---
EXAM DESCRIPTION: Emigdio Single View08/07/2021 7:13 pm CLINICAL HISTORY: Congestion COMPARISON: March 2021 FINDINGS: Mild bilateral pulmonary opacities. The heart is mildly to moderately enlarged. Pacemaker leads are in place. IMPRESSION: Mild CHF
--- NOTE | 2021-08-07 20:29 | ER ---
Nurse's Notes [facility] Name: Binu Mcelroy Age: 45 yrs Sex: Male : 1975 Arrival Date: 08/07/2021 Time: 17:47 Bed 13 Private MD: Diagnosis: Dyspnea;Systolic (congestive) heart failure;Unspecified kidney failure-chronic;Fever, unspecified;Elevated white blood cell count Presentation: 08/07 18:40 Chief complaint: Patient states: sore throat yesterday, productive cough , body aches, iw headache , fatigue today. Coronavirus screen: Client presents with at least one sign or symptom that may indicate coronavirus-19. Ebola Screen: Patient negative for fever greater than or equal to 101.5 degrees Fahrenheit, and additional compatible Ebola Virus Disease symptoms Patient denies exposure to infectious person. Patient denies travel to an Ebola-affected area in the 21 days before illness onset. No symptoms or risks identified at this time. Initial Sepsis Screen: Does the patient have a suspected source of infection?. Risk Assessment: Do you want to hurt yourself or someone else? Patient reports no desire to harm self or others. Onset of symptoms was August 06, 2021. 18:40 Method Of Arrival: Wheelchair iw 18:40 Acuity: CRISS 3 iw 19:47 Initial Sepsis Screen: Does the patient meet any 2 criteria? No. Patient's initial sm5 sepsis screen is negative. Historical: - Allergies: 18:41 No Known Allergies; iw - PMHx: 18:41 Cerebrovascular accident; CHF; CVA; diabetes mellitus; Myocardial infarction; Transient iw cerebral ischemia; Angina pectoris; - PSHx: 18:41 Heart Stents; Pacemaker/Defib; iw - Immunization history:: Adult Immunizations up to date. - Social history:: Smoking status: unknown. Screenin:46 Abuse screen: Denies threats or abuse. Denies injuries from another. Nutritional sm5 screening: No deficits noted. Tuberculosis screening: No symptoms or risk factors identified. Fall Risk None identified. Assessment: 19:45 General: Appears in no apparent distress. Behavior is cooperative. Pain: Complains of sm5 pain in head. Neuro: No deficits noted. Collier Agitation-Sedation Scale (RASS): 0 - Alert and Calm Level of Consciousness is awake, alert, obeys commands, Oriented to person, place, time, situation. Cardiovascular: Capillary refill < 3 seconds Patient's skin is warm and dry. Respiratory: Airway is patent Trachea midline Respiratory effort is even, unlabored, Breath sounds are clear bilaterally. Musculoskeletal: Reports generalized body aches. 22:36 Reassessment: pt ambulated to bathroom independently to have a bowel movement. While pt sm5 was in bathroom, he stated he stood up and "got real dizzy and nauseas and couldn't stand up". Pt brought back to room by wheelchair. BP taken with result of 75/56. EVE Spangler made aware. . Vital Signs: 19:01 BP 111 / 75; Pulse 84; Resp 18; Temp 99.9; Pulse Ox 93% ; Weight 101.6 kg; Height 5 ft. zm 10 in. (177.80 cm); 19:10 Pulse Ox 89% on R/A; 5 19:10 BP 109 / 73; Pulse 81; Resp 19; Pulse Ox 96% on 2 lpm NC; 5 20:00 BP 91 / 60; Pulse 77; Resp 19; Pulse Ox 96% on 2 lpm NC; 5 21:00 BP 100 / 69; Pulse 81; Resp 17; Pulse Ox 96% on 2 lpm NC; 5 22:40 BP 75 / 56; Pulse 77; Resp 10; Pulse Ox 94% on 2 lpm NC; 5 22:57 BP 93 / 69; Pulse 79; Resp 15; Pulse Ox 95% on 2 lpm NC; 5 19:01 Body Mass Index 32.14 (101.60 kg, 177.80 cm) zm 22:40 after ambulation to bathroom [facility] ED Course: 17:47 Patient arrived in ED. mr 18:04 Sarwat Mas DO is Attending Physician. ms3 18:41 Triage completed. iw 18:44 COVID-19 SARS RT PCR (Document "Date of Onset" if Symptomatic) Sent. zm 18:44 Troponin HS Sent. zm 18:44 CBC with Diff Sent. zm 18:44 Basic Metabolic Panel Sent. zm 18:44 Flu Sent. zm 18:45 Inserted saline lock: 20 gauge in right antecubital area, using aseptic technique. zm Blood collected. 19:02 Flu Sent. zm 19:03 Basic Metabolic Panel Sent. zm 19:03 CBC with Diff Sent. zm 19:03 Troponin HS Sent. zm 19:12 Lainey Castellano, SHIREEN is Primary Nurse. 5 19:15 XRAY Chest (1 view) In Process Unspecified. EDMN 19:32 Attending Physician role handed off by Sarwat Mas DO [facility] 19:32 Baljinder Bennett MD is Attending Physician. [facility] 19:46 Arm band placed on right wrist. EKG completed in triage. Results shown to MD. [facility] 19:46 Patient has correct armband on for positive identification. Placed in gown. Bed in low 5 position. Call light in reach. Side rails up X2. Client placed on continuous cardiac and pulse oximetry monitoring. NIBP monitoring applied. 20:26 Tremayne Palmer MD is Hospitalizing Provider. [facility] 23:29 No provider procedures requiring assistance completed. Patient admitted, IV remains in [address] Administered Medications: 19:24 Drug: Tylenol 1000 mg Route: PO; ph 21:05 Drug: Rocephin (cefTRIAXone) 1 grams Route: IV; Rate: per protocol; Site: right 5 antecubital; 21:57 Follow up: Response: No adverse reaction; IV Status: Completed infusion; IV Intake: [id number] 21:05 Drug: Lasix (furosemide) 40 mg Route: IVP; Site: right antecubital; [facility] 21:57 Follow up: Response: No adverse reaction [facility] 21:57 Drug: Zithromax (azithromycin) 500 mg Route: IVPB; Infused Over: 1 hrs; Site: right 5 antecubital; 23:29 Follow up: IV Status: Completed infusion; IV Intake: 250ml [facility] Medication: 19:47 VIS not applicable for this client. 5 Intake: 21:57 IV: 50ml; Total: 50ml. 5 23:29 IV: 250ml; Total: 300ml. [facility] Outcome: 20:28 Decision to Hospitalize by Provider. [facility] 23:30 Admitted to Med/surg accompanied by tech, via stretcher, with oxygen, with chart. [facility] 23:30 Condition: stable 23:30 Instructed on the need for admit. 23:30 Patient left the ED. [facility] Signatures: Dispatcher [employer] EDMS Baljinder Bennett MD MD cha Rivera, Mary mr Williams, Irene, RN RN Elena Marcelo RN RN Sarwat Mas DO ms3 Lainey Castellano, RN RN sm5 Luana Azar Corrections: (The following items were deleted from the chart) 18:44 PROBNP+C.LAB.THOMAS drawn and sent. katty EDMS
--- NOTE | 2021-08-07 20:29 | EDPHYS ---
Physician Documentation [facility] Name: Binu Mcelroy Age: 45 yrs Sex: Male : 1975 Arrival Date: 08/07/2021 Time: 17:47 Bed 13 Private MD: ED Physician Baljinder Bennett HPI: 08/07 18:19 This 45 yrs old Male presents to ER via Unassigned with complaints of Fever, Congestion.ms3 18:19 The patient reports fever, that was measured at 100 degrees Fahrenheit. Onset: The ms3 symptoms/episode began/occurred acutely, last night. Modifying factors: The patient has had contact with sick Family. Associated signs and symptoms: Pertinent positives: chills, cough, runny nose, sinus congestion, sinus drainage, sore throat. Historical: - Allergies: 18:41 No Known Allergies; iw - PMHx: 18:41 Cerebrovascular accident; CHF; CVA; diabetes mellitus; Myocardial infarction; Transient iw cerebral ischemia; Angina pectoris; - PSHx: 18:41 Heart Stents; Pacemaker/Defib; iw - Immunization history:: Adult Immunizations up to date. - Social history:: Smoking status: unknown. ROS: 18:19 Eyes: Negative for injury, pain, redness, and discharge, Neck: Negative for injury, ms3 pain, and swelling, Cardiovascular: Negative for chest pain, and palpitations. Respiratory: Negative for shortness of breath, cough, wheezing, and pleuritic chest pain, Abdomen/GI: Negative for abdominal pain, nausea, vomiting, diarrhea, and constipation, MS/Extremity: Negative for injury and deformity, Skin: Negative for injury, rash, and discoloration, Psych: Negative for depression, anxiety, suicide ideation, homicidal ideation, and hallucinations. 18:19 Constitutional: Positive for body aches, chills, fever. 18:19 ENT: Positive for nasal discharge, rhinorrhea, sore throat. Exam: 18:19 Constitutional: This is a well developed, well nourished patient who is awake, alert, ms3 and in no acute distress. Eyes: Pupils equal round and reactive to light, extra-ocular motions intact. Lids and lashes normal. Conjunctiva and sclera are non-icteric and not injected. Periorbital areas with no swelling, redness, or edema. Neck: Trachea midline, no cervical lymphadenopathy. Supple, full range of motion without nuchal rigidity, or vertebral point tenderness. No Meningismus. Chest/axilla: Normal chest wall appearance and motion. Nontender with no deformity. Cardiovascular: Regular rate and rhythm with a normal S1 and S2. No gallops, murmurs, or rubs. Normal PMI, no JVD. No pulse deficits. Respiratory: Lungs have equal breath sounds bilaterally, clear to auscultation and percussion. No rales, rhonchi or wheezes noted. No increased work of breathing, no retractions or nasal flaring. Skin: Warm, dry with normal turgor. Normal color with no rashes, no lesions, and no evidence of cellulitis. Psych: Awake, alert, with orientation to person, place and time. Behavior, mood, and affect are within normal limits. 18:55 ECG was reviewed by the Attending Physician. ms3 Vital Signs: 19:01 BP 111 / 75; Pulse 84; Resp 18; Temp 99.9; Pulse Ox 93% ; Weight 101.6 kg; Height 5 ft. zm 10 in. (177.80 cm); 19:10 Pulse Ox 89% on R/A; sm5 19:10 BP 109 / 73; Pulse 81; Resp 19; Pulse Ox 96% on 2 lpm NC; sm5 20:00 BP 91 / 60; Pulse 77; Resp 19; Pulse Ox 96% on 2 lpm NC; sm5 21:00 BP 100 / 69; Pulse 81; Resp 17; Pulse Ox 96% on 2 lpm NC; sm5 22:40 BP 75 / 56; Pulse 77; Resp 10; Pulse Ox 94% on 2 lpm NC; sm5 22:57 BP 93 / 69; Pulse 79; Resp 15; Pulse Ox 95% on 2 lpm NC; sm5 19:01 Body Mass Index 32.14 (101.60 kg, 177.80 cm) zm 22:40 after ambulation to bathroom 5 MDM: 18:19 Differential diagnosis: viral Infection, URI, bronchitis, pneumonia CHF. ms3 18:50 Patient medically screened. ms3 20:30 Data reviewed: vital signs, nurses notes, lab test result(s), EKG, radiologic studies, shahnaz plain films. Data interpreted: quality assurance monitor final: rate is 81 beats/min, rhythm is regular, Pulse oximetry: on room air is 96 %. Test interpretation: by ED physician or midlevel provider: ECG, plain radiologic studies. Counseling: I had a detailed discussion with the patient and/or guardian regarding: the historical points, exam findings, and any diagnostic results supporting the discharge/admit diagnosis, lab results, radiology results, the need for further work-up and treatment in the hospital. 08/07 18:19 Order name: Basic Metabolic Panel; Complete Time: 19:50 ms3 08/07 18:19 Order name: CBC with Diff; Complete Time: 19:50 ms3 08/07 18:19 Order name: Troponin HS; Complete Time: 19:50 ms3 08/07 18:19 Order name: COVID-19 SARS RT PCR (Document "Date of Onset" if Symptomatic); Complete ms3 Time: 21:11 08/07 18:19 Order name: Flu; Complete Time: 19:50 ms3 08/07 18:19 Order name: XRAY Chest (1 view); Complete Time: 20:21 ms3 08/07 19:09 Order name: NT PRO-BNP; Complete Time: 19:50 EDMS 08/07 22:47 Order name: Lactate la1 05 22:47 Order name: Blood Culture Adult (2) la1 08/07 18:19 Order name: EKG; Complete Time: 18:20 ms3 08/07 18:19 Order name: Cardiac monitoring; Complete Time: 19:03 ms3 08/07 18:19 Order name: EKG - Nurse/Tech; Complete Time: 18:44 ms3 08/07 18:19 Order name: IV Saline Lock; Complete Time: 18:44 ms3 08/07 18:19 Order name: Labs collected and sent; Complete Time: 18:44 ms3 08/07 18:19 Order name: O2 Per Protocol; Complete Time: 19:03 ms3 08/07 18:19 Order name: O2 Sat Monitoring; Complete Time: 19:03 ms3 EC:55 Rate is 85 beats/min. Rhythm is regular. Left axis deviation noted. Clinical ms3 impression: NSR w/ Non-specific ST/T Changes. Interpreted by me. Reviewed by me. Administered Medications: 19:24 Drug: Tylenol 1000 mg Route: PO; ph 21:05 Drug: Rocephin (cefTRIAXone) 1 grams Route: IV; Rate: per protocol; Site: right 5 antecubital; 21:57 Follow up: Response: No adverse reaction; IV Status: Completed infusion; IV Intake: 78qoif5 21:05 Drug: Lasix (furosemide) 40 mg Route: IVP; Site: right antecubital; 5 21:57 Follow up: Response: No adverse reaction 5 21:57 Drug: Zithromax (azithromycin) 500 mg Route: IVPB; Infused Over: 1 hrs; Site: right 5 antecubital; 23:29 Follow up: IV Status: Completed infusion; IV Intake: 250ml sm5 Disposition Summary: 08/07/21 20:28 Hospitalization Ordered Hospitalization Status: Observation shahnaz Provider: Tremayne Palmer cha Condition: Stable shahnaz Problem: new shahnaz Symptoms: have improved shahnaz Bed/Room Type: Standard shahnaz Location: Telemetry/MedSurg (observation)(08/07/21 22:32) cg Room Assignment: [facility](08/07/21 22:32) Diagnosis - Dyspnea shahnaz - Systolic (congestive) heart failure shahnaz - Unspecified kidney failure - chronic shahnaz - Fever, unspecified shahnaz - Elevated white blood cell count shahnaz Forms: - Medication Reconciliation Form shahnaz - SBAR form shahnaz Signatures: Dispatcher [employer] EDBaljinder Adrian MD MD cha Williams, Irene, RN RN Aníbal Jolley, INSURANCE LICENSING SUPERVISOR-C INSURANCE LICENSING SUPERVISOR-Cla1 Elena Marcelo RN RN Aline Moore RN RN Sarwat Mas DO DO ms3 Lainey Castellano RN RN sm5 Corrections: (The following items were deleted from the chart) 19:09 18:22 PROBNP+C.LAB.BRZ ordered. EDMS EDMS 21:23 20:28 Telemetry/MedSurg (observation) shahnaz cg 21:23 20:28 shahnaz cg 22:32 21:23 [facility] ER HOLD cg cg 22:32 21:23 ERHOLD- cg cg
[2021-08-07] MEDS ORDERED: AZITHROMYCIN 500 MG INJ IVPB ONE (21:06)
[2021-08-07] MEDS ORDERED: CEFTRIAXONE 1000 MG/VIAL ONE (21:06)
[2021-08-07] MEDS ORDERED: FUROSEMIDE 40 MG/4 ML VIAL ONE (21:06)
[2021-08-07] MEDS ORDERED: NA CHLORIDE 0.9% 50 ML ONE (21:07)
[2021-08-07] MEDS ORDERED: NA CHLORIDE 0.9% 250 ML ONE (21:07)
--- NOTE | 2021-08-07 21:47 | P.HP ---
Certification for Inpatient Patient admitted to: Inpatient With expected LOS: >2 Midnights Patient will require the following post-hospital care: None Practitioner: I am a practitioner with admitting privileges, knowledge of patient current condition, hospital course, and medical plan of care. Services: Services provided to patient in accordance with Admission requirements found in Title 42 Section 412.3 of the Code of Federal Regulations Patient History Date of Service: 08/07/21 Reason for admission: Pneumonia History of Present Illness: 45-year-old male with history of chronic systolic congestive heart failure, CKD 4, CAD with pacemaker/defibrillator placement, diabetes mellitus type 2insulin- dependent, hypertension, hyperlipidemia history of CVA presents emergency department for cough, chills. Patient reports that starting yesterday and worse today he noted some chills, fever and green sputum. Patient was evaluated in the emergency department found to have leukocytosis, low-grade fever mild worsening in his renal function with a chest x-ray suggestive of bilateral pulmonary opacities suspected CHF. Given his clinical presentation also possible he has pneumonia. Patient was saturating around 89% on room air in the ER ED provider wishes to admit for further evaluation and management. Allergies No Known Allergies Allergy (Verified 04/04/21 21:27) Home Medications: Bumetanide [Bumex*] 1 tab PO BID 01/02/21 Carvedilol [Coreg] 1 tab PO BID 01/02/21 Clopidogrel Bisulfate [Plavix*] 1 tab PO DAILY 01/02/21 Gabapentin 1 tab PO TID 01/02/21 Insulin Glargine,Hum.rec.anlog [Lantus] 55 units SQ BID 01/02/21 Insulin Lispro [Humalog] See Protocol SQ TID 01/02/21 Isosorbide Mononitrate [Isosorbide Mononitrate ER] 1 tab PO DAILY 01/02/21 Rosuvastatin Calcium [Crestor] 1 tab PO DAILY 01/02/21 metOLazone [Metolazone] 1 tab PO DAILY 01/02/21 Allopurinol 50 mg PO SEECOM 02/03/21 Amlodipine [Norvasc*] 5 mg PO DAILY 02/03/21 Apixaban [Eliquis] 5 mg PO BID #60 tablet 03/03/21 Calcitrol [Rocaltrol*] 0.25 mcg PO Q48H #15 cap 03/03/21 Spironolactone [Aldactone*] 25 mg PO DAILY 30 Days #30 tab 04/06/21 - Past Medical/Surgical History Diabetic: Yes -: Systolic congestive heart failure -: CAD -: Diabetes mellitus type 2insulin-dependent -: Hypertension -: CKD4 -: Gout -: History of PE on anticoagulation therapy -: Cardiac stents -: Pacemaker/defibrillator Psychosocial/ Personal History: Patient lives at home with his fiance - Social History Smoking Status: Former smoker Alcohol use: No CD- Drugs: No Caffeine use: Yes Place of Residence: Home Review of Systems 10-point ROS is otherwise unremarkable General: Fever, Chills, Malaise Respiratory: Cough, SOB with Excertion, Sputum Physical Examination - Physical Exam General: Alert, In no apparent distress, Oriented x3 HEENT: Atraumatic, PERRLA, Mucous membr. moist/pink, EOMI, Sclerae nonicteric Neck: Supple, 2+ carotid pulse no bruit, No LAD, Without JVD or thyroid abnormality Respiratory: Diminished, Crackles/rales Cardiovascular: Regular rate/rhythm, Normal S1 S2 Capillary refill: <2 Seconds Gastrointestinal: Normal bowel sounds, No tenderness Musculoskeletal: No tenderness Integumentary: No rashes Neurological: Normal speech, Normal strength at 5/5 x4 extr, Normal tone, Normal affect Lymphatics: No axilla or inguinal lymphadenopathy - Studies Laboratory Data (last 24 hrs) 08/07/21 18:40: WBC 16.4 H, Hgb 13.4 L, Hct 39.9, Plt Count 178 08/07/21 18:40: Sodium 134 L, Potassium 4.7, BUN 83 H, Creatinine 3.32 H, Glucose 140 H Microbiology Data (last 24 hrs): 08/07/21 18:40 Nasopharnyx Influenza Type A Antigen Screen - Final 08/07/21 18:40 Nasopharnyx Influenza Type B Antigen Screen - Final Assessment and Plan - Plan Assessment: Fever, leukocytosis secondary to suspected pneumonia Acute on chronic systolic congestive heart failure with pacemaker/defibrillator KARYN on CKD 4 Diabetes mellitus type 2insulin-dependent CAD Hypertension Hyperlipidemia Previously diagnosed with PE noncompliant with anticoagulation Plan: Fever, leukocytosis secondary to suspected pneumonia: Continue antibiotics RocephinZithromax, supplemental oxygen as needed currently on 2 L per nasal cannula room air saturation was 89%. Incentive spirometry. Chest x-ray concerning for mild CHF with bilateral pulmonary [place] patient does report cough, increased sputum production, low-grade fevers at home. Acute on chronic systolic congestive heart failure with pacemaker/defibrillator: Patient currently takes Bumex 1 mg p.o. twice daily and metolazone 5 mg daily at home we will continue Bumex, metolazone in addition to other home medications consult cardiology, obtain echocardiogram. KARYN on CKD 4: Mild worsening in renal function, will consult with nephrology as well. Diabetes mellitus type 2insulin-dependent: Continue long-acting insulin, sliding scale patient reports that he is prescribed 50 units of Levemir twice daily but has been taking 25 at home and still having some low values will start at 20 units twice daily for now. CAD: Continue home medications Hypertension: Continue home medications Hyperlipidemia: Continue home medications Previously diagnosed with PE noncompliant with anticoagulation: Patient states he is unable to afford anticoagulation, has not been taking it since April of this year. DVT PPX: Heparin Code status: Full Discharge Plan: Home Plan to discharge in: 48 Hours - Advance Directives Does patient have a Living Will: No Does patient have a Durable POA for Healthcare: No - Code Status/Comfort Care Code Status Assessed: Yes (Full code) Critical Care: No Time Spent Managing Pts Care (In Minutes): 55
[2021-08-08] MEDS ORDERED: ONDANSETRON 4 MG/2 ML VIAL IV PRN
[2021-08-08] MEDS ORDERED: ACETAMINOPHEN 500 MG TAB PO PRN
[2021-08-08 04:43] LABS: Urine Appearance Clear (Clear); Urine Bilirubin Negative (Negative); Urine Blood Trace-lysed (Negative); Urine Color Yellow (Yellow); Urine Glucose Negative (Negative); Urine Protein 2+ (Negative); Urine Specific Gravity 1.015 (1.005-1.030); Urine Urobilinogen 0.2 mg/dL (0.2-1.0)
[2021-08-08 04:45] LABS: Urine Microscopic Reflex ORDER UMIC
[2021-08-08 04:57] LABS: Urine Amorphous Sediment 1+ /HPF (NONE SEEN); Urine Bacteria >50 /HPF (NONE SEEN); Urine Mucus 1+ /HPF (NONE SEEN); Urine RBC <5 /HPF (NONE SEEN)
[2021-08-08 05:15] LABS: Absolute Lymphocytes (CBC) 0.6 K/uL (0.7-4.9); Hematocrit 40.1 % (39.6-49.0); Lymphocytes % 5.2 % (15.3-44.8); MPV 8.7 fL (7.6-11.3); RBC Red Blood Cell Count 4.37 M/uL (4.33-5.43)
[2021-08-08 05:17] LABS: Albumin 3.5 g/dL (3.4-5.0); Bilirubin Direct 0.5 mg/dL (0-0.2); Bilirubin Total 1.2 mg/dL (0.2-1.0); Magnesium 1.7 mg/dL (1.8-2.4); Protein, Total 8.1 g/dL (6.4-8.2)
[2021-08-08 05:20] LABS: Albumin 3.5 g/dL (3.4-5.0); Bilirubin Total 1.2 mg/dL (0.2-1.0); Potassium 4.2 mmol/L (3.5-5.1); Protein, Total 8.1 g/dL (6.4-8.2)
[2021-08-08] MEDS: INSULIN -REGULAR HUMAN 50 UNIT/0.5 ML ML SQ SCH ×4 (07:30→20:58)
[2021-08-08] MEDS ORDERED: CEFTRIAXONE 1000 MG/VIAL ONE (08:11)
[2021-08-08] MEDS ORDERED: NA CHLORIDE 0.9% 50 ML ONE (08:29)
[2021-08-08] MEDS: carvediloL 6.25 MG TAB PO SCH ×2 (08:36→20:57)
[2021-08-08] MEDS: CLOPIDOGREL 75 MG TABLET PO SCH (08:36)
[2021-08-08] MEDS: SPIRONOLACTONE 25 MG TABLET PO SCH (08:36)
[2021-08-08] MEDS: METOLAZONE 5 MG TABLET PO SCH (08:37)
[2021-08-08] MEDS: BUMETANIDE 1 MG TABLET PO SCH ×2 (08:38→20:56)
[2021-08-08] MEDS: HEPARIN 5000 UNIT/ML 1 ML VIAL SQ SCH ×2 (08:38→20:58)
[2021-08-08] MEDS: CEFTRIAXONE 1,000 MG in NA CHLORIDE 0.9% 50 ML IVPB SCH (08:39)
[2021-08-08] MEDS ORDERED: BUMETANIDE 1 MG/4 ML VIAL IV SCH (09:00)
[2021-08-08] MEDS: AZITHROMYCIN IV 500 MG in NA CHLORIDE 0.9% 250 ML IVPB SCH (11:07)
--- NOTE | 2021-08-08 13:34 | P.CNS ---
Date of Consult: 08/08/21 Reason for Consult: KARYN, CKD4 Requesting Physician: Brian Ramirez Chief Complaint: Pneumonia History of Present Illness: 45M w/ PMHx of CKD4 presumed to be 2/2 Htn/DM, baseline SCr 2.5-2.7 (equiv baseline GFR 25-28 ml/min), Htn, HLD, CVA, DM2, chronic systolic HF, & CAD s/p PPM/defibrillator, who p/w cough, fever, & chills, admitted w/ sepsis 2/2 pneumonia, started on abx, referred to Nephrology for KARYN. SCr 3.3 on admission, increased to 3.7 today. He had hpotensive episodes since yesterday. BP currently stable. Urinalysis showed proteinuria but no hematuria or pyuria. CXR showed mild CHF. Allergies No Known Allergies Allergy (Verified 04/04/21 21:27) Home Medications: Bumetanide [Bumex*] 1 tab PO BID 01/02/21 Carvedilol [Coreg] 1 tab PO BID 01/02/21 Clopidogrel Bisulfate [Plavix*] 1 tab PO DAILY 01/02/21 Gabapentin 1 tab PO TID 01/02/21 Insulin Glargine,Hum.rec.anlog [Lantus] 25 units SQ BID 01/02/21 Insulin Lispro [Humalog] See Protocol SQ TID 01/02/21 Isosorbide Mononitrate [Isosorbide Mononitrate ER] 1 tab PO DAILY 01/02/21 Rosuvastatin Calcium [Crestor] 1 tab PO DAILY 01/02/21 metOLazone [Metolazone] 1 tab PO DAILY 01/02/21 Allopurinol 100 mg PO DAILY 02/03/21 Amlodipine [Norvasc*] 5 mg PO DAILY 02/03/21 Spironolactone [Aldactone*] 25 mg PO DAILY 30 Days #30 tab 04/06/21 Glipizide [Glipizide ER] 1 tab PO DAILY 08/08/21 - Past Medical/Surgical History Diabetic: Yes -: Systolic congestive heart failure -: CAD -: Diabetes mellitus type 2insulin-dependent -: Hypertension -: CKD4 -: Gout -: History of PE on anticoagulation therapy -: LA -: CVA -: hyperlipidemia -: Cardiac stents -: Pacemaker/defibrillator Psychosocial/ Personal History: Patient lives at home with his fiance - Social History Smoking Status: Unknown if ever smoked Alcohol use: No CD- Drugs: No Caffeine use: Yes Place of Residence: Home Review of Systems General: Fever, Chills Eyes: Unremarkable ENT: Unremarkable Respiratory: Cough Cardiovascular: Unremarkable Gastrointestinal: Unremarkable Genitourinary: Unremarkable Musculoskeletal: Unremarkable Integumentary: Unremarkable Neurological: Unremarkable Lymphatics: Unremarkable Physical Examination Temp Pulse Resp BP Pulse Ox 98.8 F 85 20 115/69 92 08/08/21 12:00 08/08/21 12:00 08/08/21 12:00 08/08/21 12:00 08/08/21 12:00 General: Other (Appears as his stated age) HEENT: Atraumatic, Normocephalic Neck: Supple, JVD not distended Respiratory: Other (Symmetric chest expansion) Cardiovascular: No gallops, No rubs, No murmurs Gastrointestinal: Soft and benign, Non-distended Musculoskeletal: No clubbing Integumentary: No warmth Neurological: Normal speech, Normal tone Lymphatics: No axilla or inguinal lymphadenopathy Urinary: Other (No bladder distention) External genitalia: Deferred Rectal: Deferred Laboratory Data (last 24 hrs) 08/07/21 18:40: WBC 16.4 H, Hgb 13.4 L, Hct 39.9, Plt Count 178 08/07/21 18:40: Sodium 134 L, Potassium 4.7, BUN 83 H, Creatinine 3.32 H, Glucos e 140 H Conclusions/Impression: # KARYN 2/2 hypotension + ATN/sepsis SCr 3.3 on adm, increased to 3.7 today Urinalysis showed proteinuria but no hematuria or pyuria F/u CPK, iPTH, renal US Keep MAP > 65 [place] po fluid intake Monitor renal panel # CKD4 presumed to be 2/2 DM/Htn Baseline SCr 2.5-2.7 (equiv baseline GFR 25-28 ml/min) Monitor renal panel # Nephroti-range proteinuria likely 2/2 DM nephropathy Proteinuria workup as outpt BP & Glycemic control Low Na diet F/u 25OHD, replete if low # Sepsis likely 2/2 PNA Abx F/u cultures # Chronic systolic HF, CAD, Htn, HLD TTE on 08/08/21 showed dec LVEF 35-40%, LV inf wall hypokinesis, mod to severe TR S/p PPM/defibrillator BNP sig elevated. Cont bumex, metolazone, adela. Cont Coreg & other cardioprudent meds Do NOT limit po fluid intake unless serum Na drops < 130, to avoid further KARYN Per Cardiology # Hx of PE Non-adherent to anticoagulation therapy d/t medical insurance issues # DM2 Mngt per primary team
--- NOTE | 2021-08-08 13:41 | ECHO ---
HEIGHT: 5 ft 11 in WEIGHT: 225 lb 8 oz DATE OF STUDY: 08/08/[address]: Aníbal Jolley NP 2-DIMENSIONAL: YES M.MODE: YES DOPPLER: YES COLOR FLOW: YES TDS: YES PORTABLE: YES DEFINITY: NO BUBBLE STUDY: NO DIAGNOSIS: CONGESTIVE HEART FAILURE/ DYSPNEA CARDIAC HISTORY: CATHERIZATION: YES SURGERY: NO PROSTHETIC VALVE: NO PACEMAKER: NO MEASUREMENTS (cm) DIASTOLIC (NORMALS) SYSTOLIC (NORMALS) IVSd 1.3 (0.6-1.2) LA Diam 4.1 (1.9-4.0) LVEF 35-40% LVIDd 5.7 (3.5-5.7) LVIDs 4.8 (2.0-3.5) %FS 15% LVPWd 1.4 (0.6-1.2) Ao Diam 2.9 (2.0-3.7) 2 DIMENSIONAL ASSESSMENT: RIGHT ATRIUM: NORMAL LEFT ATRIUM: NORMAL RIGHT VENTRICLE: NORMAL LEFT VENTRICLE: DILATED LEFT VENTRICLE TRICUSPID VALVE: MODERATE TO SEVERE TRICUSPID REGURGITATION MITRAL VALVE: MILD MITRAL REGURGITATION PULMONIC VALVE: MILD PULMONIC INSUFFICIENCY AORTIC VALVE: MILD AORTIC INSUFFICIENCY PERICARDIAL EFFUSION: TRACE AORTIC ROOT: NORMAL LEFT VENTRICULAR WALL MOTION: SEVERE INFERIOR WALL HYPOKINESIS. DOPPLER/COLOR FLOW: SEE BELOW. COMMENTS: MODERATELY DEPRESSED LEFT VENTRICULAR EJECTION FRACTION 35-40%. SEVERE INFERIOR WALL HYPOKINESIS. MODERATE TO SEVERE TRICUSPID REGURGITATION. MILD MITRAL REGURGITATION, MILD PULMONIC INSUFFICIENCY, MILD AORTIC INSUFFICIENCY. SEVERE PULMONARY HYPERTENSION WITH RIGHT VENTRICULAR SYSTOLIC PRESSURE GREATER THAN 60mmHg. MODERATE DIASTOLIC DYSFUNCTION. TECHNOLOGIST: CAROLINE RICHARDS
[2021-08-08 16:16] LABS: Urine Protein/Creatinine Ratio 3.69 ratio (<0.15)
[2021-08-08] MEDS: ATORVASTATIN 40 MG TAB PO SCH (20:57)
[2021-08-08] MEDS: BENZONATATE 100 MG CAP PO PRN (20:57)
[2021-08-08] MEDS ORDERED: ALPRAZOLAM 0.25 MG TABLET PO PRN (23:59)
[2021-08-09] MEDS: GUAIFENESIN 600 MG SA TAB PO PRN ×2 (00:19→17:01)
[2021-08-09 04:31] LABS: Albumin 2.9 g/dL (3.4-5.0); Bilirubin Total 0.7 mg/dL (0.2-1.0); Protein, Total 7.1 g/dL (6.4-8.2)
[2021-08-09 04:51] LABS: Absolute Lymphocytes (CBC) 0.8 K/uL (0.7-4.9); Hematocrit 37.1 % (39.6-49.0); Lymphocytes % 9.7 % (15.3-44.8); MPV 8.7 fL (7.6-11.3); RBC Red Blood Cell Count 4.03 M/uL (4.33-5.43)
[2021-08-09] MEDS ORDERED: CEFTRIAXONE 1000 MG/VIAL ONE (07:26)
[2021-08-09] MEDS: INSULIN -REGULAR HUMAN 50 UNIT/0.5 ML ML SQ SCH ×4 (07:30→21:04)
[2021-08-09] MEDS ORDERED: NA CHLORIDE 0.9% 50 ML ONE (07:31)
[2021-08-09] MEDS: AZITHROMYCIN IV 500 MG in NA CHLORIDE 0.9% 250 ML IVPB SCH (08:03)
[2021-08-09] MEDS: CEFTRIAXONE 1,000 MG in NA CHLORIDE 0.9% 50 ML IVPB SCH (08:03)
[2021-08-09] MEDS: METOLAZONE 5 MG TABLET PO SCH (08:04)
[2021-08-09] MEDS: CLOPIDOGREL 75 MG TABLET PO SCH (08:05)
[2021-08-09] MEDS: carvediloL 6.25 MG TAB PO SCH ×2 (08:05→21:03)
[2021-08-09] MEDS: SPIRONOLACTONE 25 MG TABLET PO SCH (08:05)
[2021-08-09] MEDS: BUMETANIDE 1 MG TABLET PO SCH ×2 (08:06→21:06)
[2021-08-09] MEDS: HEPARIN 5000 UNIT/ML 1 ML VIAL SQ SCH ×2 (08:07→21:00)
--- NOTE | 2021-08-09 08:13 | P.PN ---
Subjective Date of Service: 08/10/21 Chief Complaint: Pneumonia Subjective: No new changes, No C/O voiced Physical Examination - Vital Signs Temperature: 98.7 F Blood Pressure: 102/64 Pulse: 73 Respirations: 18 Pulse Ox (%): 92 - Physical Exam General: Alert, Oriented x3 HEENT: Atraumatic, Normocephalic Neck: Supple Respiratory: Diminished Cardiovascular: Regular rate/rhythm, Normal S1 S2 Gastrointestinal: Soft and benign Musculoskeletal: No swelling Neurological: Normal speech Assessment And Plan - Plan Assessment And Plan - Plan Fever, leukocytosis secondary to suspected pneumonia Acute on chronic systolic congestive heart failure with pacemaker/defibrillator KARYN on CKD 4 Diabetes mellitus type 2insulin-dependent CAD Hypertension Hyperlipidemia Previously diagnosed with PE noncompliant with anticoagulation Plan: Fever, leukocytosis secondary to suspected pneumonia: Patient is presently doing well on Zithromax and Rocephin. Will continue breathing treatment. Will continue Mucinex for expectoration of sputum. Will monitor symptomatology closely. Cultures pending. Acute on chronic systolic congestive heart failure with pacemaker/defibrillator: Volume status is stable. Will continue Bumex 1 mg p.o. twice daily. Nephrology following for treatment recommendation. KARYN on CKD 4: Nephrology on board patient care. Renal function is stable. We will dose medication for estimated glomerular filtration. We will avoid nephrotoxins Diabetes mellitus type 2insulin-dependent: Blood glucose control is fair. We will continue ACHS glucose checks and Lantus insulin with sliding scale. CAD: Continue home medications Hypertension: Blood pressure control is fair. We will continue home medications Hyperlipidemia: We will continue home medications Previously diagnosed with PE noncompliant with anticoagulation: Patient states he is unable to afford anticoagulation, has not been taking it since April of this year. DVT PPX: Heparin Plan to discharge in: Unknown - Code Status/Comfort Care Code Status: Full Code
--- NOTE | 2021-08-09 08:32 | P.PN ---
Subjective Date of Service: 08/09/21 Chief Complaint: Pneumonia Subjective: No new changes, Improving Physical Examination - Vital Signs Temperature: 98.7 F Blood Pressure: 102/64 Pulse: 73 Respirations: 18 Pulse Ox (%): 92 - Physical Exam General: Alert, Oriented x3 HEENT: Atraumatic, Normocephalic Neck: Supple Respiratory: Normal air movement Cardiovascular: Regular rate/rhythm, Normal S1 S2 Gastrointestinal: Soft and benign Musculoskeletal: No swelling Neurological: Normal speech Assessment And Plan - Plan Fever, leukocytosis secondary to suspected pneumonia Acute on chronic systolic congestive heart failure with pacemaker/defibrillator KARYN on CKD 4 Diabetes mellitus type 2insulin-dependent CAD Hypertension Hyperlipidemia Previously diagnosed with PE noncompliant with anticoagulation Plan: Fever, leukocytosis secondary to suspected pneumonia: Patient is presently doing well on Zithromax and Rocephin. Will continue breathing treatment. Will continue Mucinex for expectoration of sputum. Will monitor symptomatology closely. Cultures pending. Acute on chronic systolic congestive heart failure with pacemaker/defibrillator: Volume status is stable. Will continue Bumex 1 mg p.o. twice daily. Nephrology following for treatment recommendation. KARYN on CKD 4: Nephrology on board patient care. Renal function is stable. We will dose medication for estimated glomerular filtration. We will avoid nephrotoxins Diabetes mellitus type 2insulin-dependent: Blood glucose control is fair. We will continue ACH S glucose checks and Lantus insulin with sliding scale. CAD: Continue home medications Hypertension: Blood pressure control is fair. We will continue home medications Hyperlipidemia: We will continue home medications Previously diagnosed with PE noncompliant with anticoagulation: Patient states he is unable to afford anticoagulation, has not been taking it since April of this year. DVT PPX: Heparin
[2021-08-09] MEDS: INSULIN GLARGINE 100 UNIT/ML SQ SCH ×2 (09:53→21:00)
[2021-08-09] MEDS: BENZONATATE 100 MG CAP PO PRN ×2 (09:53→21:13)
--- NOTE | 2021-08-09 12:18 | RAD REPORT ---
EXAM DESCRIPTION: US - Renal Ultrasound-Complete - 08/09/2021 12:05 pm CLINICAL HISTORY: KARYN COMPARISON: Renal Ultrasound-Complete dated 02/07/2021 FINDINGS: Both kidneys are normal in size, shape and echotexture. The right kidney measures 13.4 cm. No hydronephrosis, focal mass or perinephric fluid. The left kidney measures 11.2 cm. No hydronephrosis, focal mass or perinephric fluid. The urinary bladder is incompletely distended without gross abnormality seen. IMPRESSION: Unremarkable renal sonogram. No evidence of hydronephrosis.
--- NOTE | 2021-08-09 12:32 | RAD REPORT ---
EXAM DESCRIPTION: RAD - Chest Single View - 08/09/2021 12:19 pm CLINICAL HISTORY: COPD COMPARISON: Chest Single View dated 08/07/2021; Chest Single View dated 04/04/2021; Chest Single View d ated 03/03/2021; Chest Single View dated 02/28/2021 FINDINGS: Lines: Pacemaker. Lungs: No evidence of edema or pneumonia. Pleural: No significant pleural effusions or pneumothorax. Cardiac: The heart size is within normal limits. Bones: No acute fractures. Other: IMPRESSION: No acute cardiopulmonary disease.
--- NOTE | 2021-08-09 14:53 | EKG ---
Test Date: 2021-08-07 Test Time: 18:55:40 Windows Architect: NATHALIA MEASUREMENT RESULTS: Intervals: Rate: 85 MS: 136 QRSD: 98 QT: 412 QTc: 490 [place]: P: 45 MS: 136 QRS: -79 T: 114 INTERPRETIVE STATEMENTS: Normal sinus rhythm Left axis deviation Low voltage QRS Inferior infarct, age undetermined Possible Anterolateral infarct, age undetermined Abnormal ECG Compared to ECG 04/04/2021 02:47:27 Left-axis deviation now present Low QRS voltage now present Ventricular premature complex(es) no longer present Prolonged QT interval no longer present Myocardial infarct finding still present Electronically Signed On 08-09-21 14:53:10 CDT by James Moncada
--- NOTE | 2021-08-09 16:10 | PN ---
Date of Progress Note: 08/09/2021 Subjective: The patient was admitted with acute kidney injury on chronic kidney disease, acute kidney injury secondary to toxic ATN/poor perfusion ATN secondary to sepsis. The patient was started on fluid resuscitation. Kidney function started being improving. Physical Examination: General: Today, the patient is still complaining from cough. Vital Signs: Blood pressure has been stabilized 102/64, pulse was 73, afebrile. The patient had been voiding freely. Chest: Faint crackles on the left base. Heart: S1 and S2. Systolic murmur. Abdomen: Soft and nontender. Extremities: No edema. Neuro: Alert and oriented x3. No focal. Laboratory Data: WBC 8.2, H and H 12.4/37.1. Sodium 133, potassium 4, bicarb 22, BUN 95, creatinine 3.6, GFR of 20, calcium 8.7, albumin 2.9, corrected calcium is 9.5. Medications: Current medications the patient is on include azithromycin, ceftriaxone, Plavix, atorvastatin, spironolactone 25 daily, and metolazone 5 mg. Assessment And Plan: 1. Acute kidney injury secondary to prerenal/toxic acute tubular necrosis, on the recovery phase, look to me still on the dry side. I am going to keep holding diuresis, discontinue metolazone and we will monitor the patient closely. 2. I am going to go ahead and get renal ultrasound for better evaluation of the kidney and we will follow up the patient. 3. Please avoid all blood pressure medication especially KAREN inhibitor and ARB and diuresis. 4. Hypertension, currently blood pressure on the lower side. Hold all the blood pressure medication as above. 5. 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 I am going to go ahead and keep holding the KAREN inhibitor and ARB. We will send for protein electrophoresis for complete the workup for the patient. 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 6. Pneumonia as by primary. Continue current antibiotic. 7. Coronary artery disease with congestive heart failure. The patient is currently normal volume, euvolemic. I am going to discontinue diuresis. We will monitor the patient. I will go ahead and get new chest x-ray for better evaluation of the fluid status for the patient and we will follow up. time spend exam the patient face to face , reviewing the data of lab and radiology , placing the order , discussing with the patient and the nursing staff , discussing with other boarder steam including hospitalist 35 min ARMANI Voice ID: [id number] Report ID: [id number] MTDD
[2021-08-09] MEDS: ATORVASTATIN 40 MG TAB PO SCH (21:03)
--- NOTE | 2021-08-09 22:19 | CON ---
Date of Consultation: 08/08/2021 Reason For Consultation: Shortness of breath. History Of Present Illness: This 45-year-old with history of chronic heart failure, chron ic kidney disease, coronary artery disease with pacemaker and defibrillator in place, diabetes, hyper tension, dyslipidemia, and CVA presented with cough, shortness of breath, chills, and low-grade fever . No chest pain. Past Medical History: As outlined above in the HPI. Medications: Refer to reconciliation sheet for detailed list. Allergies: NO KNOWN DRUG ALLERGIES. Family History: No premature coronary artery disease or cancer. Social History: Does not smoke or drink or use any drugs. Review of Systems: All systems reviewed and they were negative except as mentioned in HPI. Physical Examination: Vital Signs: Reviewed. Head and Neck: Pupils are equal, reactive to light. Intact eye movements. Mild JVD elevation. No cervical lymphadenopathy. Neck supple. Thyroid is not enlarged. Lungs: Crackles at both bases. No accessory muscle use or muscle retraction. Heart: Regular rate and rhythm. No extra sounds. Abdomen: Soft, nontender. Bowel sounds positive. No organomegaly. No hernia or masses. No rigidi ty or rebound. Extremities: No clubbing or cyanosis. Intact pulses. Skin: No rash. No lesions noted. Neurologic: Alert, awake. No acute focal deficits appreciated. Laboratory Data: Labs reviewed. Assessment And Recommendations: 1.Shortness of breath, likely due to pneumonia. I agree with antibiotics and no further cardiac med ication adjustment is needed at this point. 2.Chronic kidney disease, likely due to diabetes. 3.History of congestive heart failure. Elevated NT-proBNP and appears to be euvolemic clinically. I will continue home medications with Bumex and carefully monitor BUN and creatinine. Thank you for the consult. /EUGENIO Voice ID: [id number] Report ID: [id number]
[2021-08-10 03:12] VITALS: O2SAT 96
[2021-08-10 06:08] VITALS: BMI 29.9
[2021-08-10 06:19] LABS: Absolute Lymphocytes (CBC) 1.3 K/uL (0.7-4.9); Hematocrit 40.9 % (39.6-49.0); Lymphocytes % 18.6 % (15.3-44.8); MPV 8.7 fL (7.6-11.3); RBC Red Blood Cell Count 4.43 M/uL (4.33-5.43)
[2021-08-10 06:30] LABS: Albumin 3.3 g/dL (3.4-5.0); Bilirubin Total 0.5 mg/dL (0.2-1.0); Phosphorus 5.6 mg/dL (2.5-4.9); Potassium 4.4 mmol/L (3.5-5.1); Thyroid Stimulating Hormone 2.79 uIU/mL (0.360-3.740)
[2021-08-10] MEDS: INSULIN -REGULAR HUMAN 50 UNIT/0.5 ML ML SQ SCH ×2 (07:30→11:30)
[2021-08-10] MEDS: CLOPIDOGREL 75 MG TABLET PO SCH (08:09)
[2021-08-10] MEDS: AZITHROMYCIN IV 500 MG in NA CHLORIDE 0.9% 250 ML IVPB SCH (08:09)
[2021-08-10] MEDS: GUAIFENESIN 600 MG SA TAB PO PRN (08:09)
[2021-08-10] MEDS: BUMETANIDE 1 MG TABLET PO SCH (08:09)
[2021-08-10] MEDS: HEPARIN 5000 UNIT/ML 1 ML VIAL SQ SCH (08:10)
[2021-08-10] MEDS: carvediloL 6.25 MG TAB PO SCH (08:10)
[2021-08-10] MEDS: CEFTRIAXONE 1,000 MG in NA CHLORIDE 0.9% 50 ML IVPB SCH (08:10)
[2021-08-10] MEDS: INSULIN GLARGINE 100 UNIT/ML SQ SCH (08:11)
[2021-08-10] MEDS ORDERED: CALCITROL 0.25 MCG CAP PO SCH (12:00)
[2021-08-10 12:14] VITALS: BP 102/64; TEMP 98.7
--- NOTE | 2021-08-10 12:17 | P.DS ---
Admission Date: 08/07/21 Discharge Date: 08/10/21 Disposition: ROUTINE DISCHARGE Discharge Condition: GOOD Reason for Admission: Pneumonia Brief History of Present Illness: 45-year-old male with history of chronic systolic congestive heart failure, CKD 4, CAD with pacemaker/defibrillator placement, diabetes mellitus type 2insulin- dependent, hypertension, hyperlipidemia history of CVA presents emergency department for cough, chills. Patient reports that starting yesterday and worse today he noted some chills, fever and green sputum. Patient was evaluated in the emergency department found to have leukocytosis, low-grade fever mild worsening in his renal function with a chest x-ray suggestive of bilateral pulmonary opacities suspected CHF. Given his clinical presentation also possible he has pneumonia. Patient was saturating around 89% on room air in the ER ED provider wishes to admit for further evaluation and management. Hospital Course: He was admitted for management of volume overload and KARYN on CKD episode. He also had x-ray features and suggestive of UTI. He was started on antibiotic with ceftriaxone and azithromycin and also diuretic therapy. Nephrology was consulted for management recommendation because of his significant chronic kidney disease which is deemed stage IV. There was significant improvement in his volume status as diuretics were continued and he was deemed stable for discharge to continue with current medication after his stay of 4 days in the hospital. He had his diuretic therapy adjusted by nephrology. He will complete her course of Augmentin for management of pneumonia and he will follow-up with his primary care doctor and field observer as scheduled outpatient. Vital Signs/Physical Exam: Temp Pulse Resp BP Pulse Ox 98.7 F 73 18 102/64 92 08/10/21 12:16 08/10/21 12:16 08/10/21 12:16 08/10/21 12:16 08/10/21 12:16 General: Alert, Oriented x3 HEENT: Atraumatic, Normocephalic Neck: Supple Respiratory: Normal air movement Cardiovascular: Regular rate/rhythm, Normal S1 S2 Gastrointestinal: Soft and benign Musculoskeletal: No swelling Neurological: Normal speech, Normal strength at 5/5 x4 extr Laboratory Data at Discharge: WBC 6.8 K/uL (4.3-10.9) D 08/10/21 05:40 Hgb 13.5 g/dL (13.6-17.9) L 08/10/21 05:40 Hct 40.9 % (39.6-49.0) 08/10/21 05:40 Plt Count 191 K/uL (152-406) D 08/10/21 05:40 Sodium 135 mmol/L (136-145) L 08/10/21 05:40 Potassium 4.4 mmol/L (3.5-5.1) 08/10/21 05:40 BUN 98 mg/dL (7-18) H 08/10/21 05:40 Creatinine 3.45 mg/dL (0.55-1.3) H 08/10/21 05:40 Glucose 146 mg/dL (74-106) H 08/10/21 05:40 Phosphorus 5.6 mg/dL (2.5-4.9) H 08/10/21 05:40 Magnesium 1.7 mg/dL (1.8-2.4) L 08/08/21 04:16 Total Bilirubin 0.5 mg/dL (0.2-1.0) 08/10/21 05:40 AST 17 U/L (15-37) 08/10/21 05:40 ALT 21 U/L (12-78) 08/10/21 05:40 Alkaline Phosphatase 113 U/L (45-117) 08/10/21 05:40 Amylase 71 U/L (25-115) 08/08/21 04:16 Lipase 116 U/L (73-393) 08/08/21 04:16 Home Medications: Clopidogrel Bisulfate [Plavix*] 1 tab PO DAILY 01/02/21 Gabapentin 1 tab PO TID 01/02/21 Insulin Glargine,Hum.rec.anlog [Lantus] 25 units SQ BID 01/02/21 Insulin Lispro [Humalog] See Protocol SQ TID 01/02/21 Isosorbide Mononitrate [Isosorbide Mononitrate ER] 1 tab PO DAILY 01/02/21 Rosuvastatin Calcium [Crestor] 1 tab PO DAILY 01/02/21 Allopurinol 100 mg PO DAILY 02/03/21 Amlodipine [Norvasc*] 5 mg PO DAILY 02/03/21 Glipizide [Glipizide ER] 1 tab PO DAILY 08/08/21 Amox/Clavulanate [Augmentin 875-125 Tab*] 875 mg PO BID 5 Days #10 tab 08/10/21 Benzonatate [Tessalon Perle*] 100 mg PO TID PRN 7 Days #20 cap 08/10/21 Bumetanide [Bumex*] 1 mg PO DAILY tab 08/10/21 Calcitrol [Rocaltrol*] 0.25 mcg PO Q48H 30 Days #30 cap 08/10/21 Clopidogrel Bisulfate [Plavix*] 75 mg PO DAILY tablet 08/10/21 carvediloL [Coreg*] 6.25 mg PO BID 30 Days #60 tab 08/10/21 New Medications: Amox/Clavulanate [Augmentin 875-125 Tab*] 875 mg PO BID 5 Days #10 tab carvediloL [Coreg*] 6.25 mg PO BID 30 Days #60 tab Calcitrol [Rocaltrol*] 0.25 mcg PO Q48H 30 Days #30 cap Benzonatate [Tessalon Perle*] 100 mg PO TID PRN 7 Days #20 cap PRN Reason: Cough Physician Discharge Instructions: PROBLEM: CHF GOAL: Clear understanding of disease process INSTRUCTIONS: Ok to discharge home Follow up with Primary Care Provider in 1-2 weeks Take new medication as prescribed Contact physician or return to ER for any complications or concerns Call [phone] for any questions regarding hospital stay Diet: ADA Activity: As tolerated E-script sent to [facility] [place] IMMUNIZATION Influenza Vaccine Indicated: Influenza Vaccine Given: Date Given: Pneumonia Vaccine Indicated: No Pneumonia Vaccine Given: Date Given: Diet: ADA
--- NOTE | 2021-08-10 12:53 | PN ---
Date of Progress Note: 08/10/2021 Subjective: The patient was admitted with acute kidney injury secondary to prerenal, on advanced chronic kidney disease stage 4. The patient had over diuresis, used to be on Bumex 1 mg b.i.d., metolazone and spironolactone. In the hospital, we discontinued all, started the patient on hydration. Kidney function started being improving. Physical Examination: Vital Signs: Blood pressure 120/84, pulse of 71, afebrile. The patient had good urine output of 1 L. Chest: Clear to auscultation. Heart: S1, S2. Regular. Abdomen: Soft, nontender. Extremities: No edema. Neurologic: Alert. No focality. Laboratory Data: WBC 6.8, H and H 13.5/40.9, platelet 191. Sodium 135, potassium 4.4, bicarb 26, BUN 98, creatinine 3.5 and trending down, GFR of 21, calcium 9.2, phosphorus 5.6, albumin 3.3, corrected calcium is 9.8. Current Medications: The patient on include Augmentin, azithromycin, Plavix, atorvastatin, carvedilol 6.25, alprazolam, insulin, guaifenesin. Assessment And Plan: 1. Acute kidney injury on chronic kidney disease. The acute kidney injury is secondary to prerenal, on the recovery phase. I am going to keep holding diuresis. We will monitor. The patient cleared from the Renal standpoint for discharge planning. Upon discharge, the patient should be on Bumex only 1 mg daily, no spironolactone, no metolazone. The patient advised to follow up in 2- 3 weeks to keep adjusting. 2. Chronic kidney disease secondary to diabetes nephropathy with nephrotic range proteinuria. Normal size kidney. We will keep holding on any KAREN inhibitor or ARB given the current acute kidney injury. We will monitor. 3. Nephrotic range of proteinuria. Previous workup was negative. Serum protein electrophoresis is still pending. We will follow up. Again, we will hold on any KAREN inhibitor or ARB. 4. Hypertension, controlled, optimal. Continue current treatment. 5. Secondary hyperparathyroidism. The patient was started on calcitriol. We will continue. 6. Pneumonia as by primary. 7. Coronary artery disease with congestive heart failure as by primary. Again, the patient to be resumed as outpatient on Bumex 1 mg daily. time spend exam the patient face to face , reviewing the data of lab and radiology , placing the order , discussing with the patient and the nursing staff , discussing with other executive team leader including hospitalist 35 min ARMANI Voice ID: [id number] Report ID: [id number] MTDD
[2021-08-10] MEDS ORDERED: AMOX/K CLAV 875 MG TAB PO SCH (21:00)
[2021-08-11] MEDS ORDERED: AZITHROMYCIN 250 MG TAB PO SCH (09:00)
[2021-08-11] MEDS ORDERED: BUMETANIDE 1 MG TABLET PO SCH (09:00)
[2021-08-12] MEDS ORDERED: BUMETANIDE 1 MG TABLET PO SCH (09:00)
[2021-08-12 17:25] LABS: Albumin, (SPE) 3.6 g/dL (3.8-4.8); Alpha-1-Globulins 0.5 g/dL (0.2-0.3); Alpha-2-Globulins 0.8 g/dL (0.5-0.9); Gamma Globulins 1.5 g/dL (0.8-1.7); INTERPRETATION REPORT
[2021-08-13 00:23] LABS: Vitamin D 1,25-Dihydroxy Total 20 pg/mL (18-72); Vitamin D,1,25-OH2, D2 20 pg/mL
== END 2021-08-10 13:25 | disposition home or self-care (01) | DRG 871 ==
LOC: ER 17:45 → ERHOLD 21:08 → 2ND 23:19
PROVIDERS: ADMIT Internal Medicine Nephrology; ATTEND Internal Medicine Nephrology
DX: A41.9 Sepsis, unspecified organism (principal); J18.9 Pneumonia, unspecified organism; I50.23 Acute on chronic systolic (congestive) heart failure; N17.0 Acute kidney failure with tubular necrosis; J96.00 Acute respiratory failure, unspecified whether with hypoxia or hypercapnia; I13.0 Hypertensive heart and chronic kidney disease with heart failure and stage 1 through stage 4 chronic kidney disease, or unspecified chronic kidney disease; N18.4 Chronic kidney disease, stage 4 (severe); N25.81 Secondary hyperparathyroidism of renal origin; R65.20 Severe sepsis without septic shock; E11.22 Type 2 diabetes mellitus with diabetic chronic kidney disease; I25.10 Atherosclerotic heart disease of native coronary artery without angina pectoris; E78.5 Hyperlipidemia, unspecified; E11.21 Type 2 diabetes mellitus with diabetic nephropathy; M10.9 Gout, unspecified; R01.1 Cardiac murmur, unspecified; Z87.891 Personal history of nicotine dependence; Z95.5 Presence of coronary angioplasty implant and graft; Z95.810 Presence of automatic (implantable) cardiac defibrillator; Z86.711 Personal history of pulmonary embolism; Z20.822 Contact with and (suspected) exposure to COVID-19; Z86.73 Personal history of transient ischemic attack (TIA), and cerebral infarction without residual deficits; Z79.4 Long term (current) use of insulin
CPT/HCPCS: 36415; 71045; 76770; 80048; 80053; 80069; 80076; 81003; 81015; 82150; 82306; 82550; 82570; 82652; 82947; 83605; 83690; 83735; 83880; 83935; 83970; 84132; 84156; 84165; 84300; 84443; 84484; 85025; 87040; 87070; 87086; 87088; 87205; 87804; 93005; 93306; 94010; 96365; 96367; 96375; 99285; J0456; J1644; J1815; J1940; J7050; U0003

== ENCOUNTER 2021-09-29 08:49 | Emergency (ER) | payer OTHER ==
[2021-09-29] MEDS ORDERED: ONDANSETRON 4 MG/2 ML VIAL ONE (10:24)
[2021-09-29] MEDS ORDERED: MORPHINE 4 MG/ML SYR ONE (10:24)
--- NOTE | 2021-09-29 10:36 | RAD REPORT ---
EXAM DESCRIPTION: CTSpine Lumbar Wo Con09/29/2021 10:03 am CLINICAL HISTORY: Back pain/radiculopathy COMPARISON: None TECHNIQUE: Computed axial tomography lumbar spine was obtained with coronal and sagittal reconstruct ion. All CT scans are performed using dose optimization technique as appropriate and may include automated exposure control or mA/KV adjustment according to patient size. FINDINGS: For purposes of labeling there are 6 lumbar vertebra. Ununited ossification centers transv erse process L1. Spondylosis L1-2 results in mild narrowing of the right neural foramina Spondylosis L2-3 results in mild narrowing of the right neural foramina Disc bulge, ligamentum flavum and facet hypertrophy L3-4. Mild to moderate narrowing of the neural fo ramina bilaterally. Mild narrowing of the thecal sac Right lateral disc herniation L 4-5. Disc bulge, ligamentum flavum and facet hypertrophy. Gas is pres ent within right facet joint. 3 millimeter collection of gas is present within the right posterior as pect of the thecal sac. The gas has leak out of the facet joint. Moderate to marked narrowing right n eural foramina. Thecal sac measures approximately 5 millimeters Right lateral disc herniation L5-6 with narrowing of the right neural foramina. No significant abnormality L6-S1 No fracture or dislocation Scoliosis IMPRESSION: Six lumbar vertebra Right lateral disc herniation and spondylosis L4-5 resulting in moderate to marked central spinal and right foraminal stenosis Small to moderate right lateral disc herniation L5-6
--- NOTE | 2021-09-29 11:10 | ER ---
Nurse's Notes [facility] Name: Binu Mcelroy Age: 45 yrs Sex: Male : 1975 Arrival Date: 09/29/2021 Time: 08:51 Bed 11 Private MD: Diagnosis: Low back pain;Disc Herniation;Spondylolysis, lumbar region Presentation: 09/29 08:58 Chief complaint: Patient states: pt reports lower back pain x 3days. pt denies keller injuries/ trauma. Coronavirus screen: Vaccine status: Patient reports receiving the 2nd dose of the covid vaccine. Ebola Screen: Patient denies travel to an Ebola-affected area in the 21 days before illness onset. Initial Sepsis Screen: Does the patient meet any 2 criteria? No. Patient's initial sepsis screen is negative. Does the patient have a suspected source of infection? No. Patient's initial sepsis screen is negative. Risk Assessment: Do you want to hurt yourself or someone else? Patient reports no desire to harm self or others. Onset of symptoms was September 26, 2021. 08:58 Method Of Arrival: Wheelchair keller 08:58 Acuity: CRISS 4 keller Triage Assessment: 09:01 General: Appears in no apparent distress. Behavior is calm, cooperative. Pain: keller Complains of pain in lumbar area, left low back and right low back. 09:15 Musculoskeletal: Range of motion: intact in all extremities. iw Historical: - Home Meds: 08:59 allopurinol 100 mg oral tab 3 times per day [Active]; amlodipine oral [Active]; Bumex 1 keller mg Oral tab 1 tab 2 times per day [Active]; carvedilol 12.5 mg Oral tab 1 tab 2 times per day [Active]; clopidogrel 75 mg Oral tab once daily [Active]; gabapentin 800 mg Oral tab 1 tab 3 times per day [Active]; gabapentin Oral [Active]; Imdur Oral [Active]; Insulin: Regular Sub-Q [Active]; metolazone 5 mg Oral tab Q 2 days [Active]; ProAir HFA inhalation [Active]; Symbicort inhalation [Active]; glipizide 5 mg Oral tr24 1 tab once daily [Active]; - PMHx: 08:59 angina pectoris; Cerebrovascular accident; CHF; CVA; diabetes mellitus; Myocardial keller infarction; Transient cerebral ischemia; - PSHx: 08:59 Heart Stents; Pacemaker/Defib; keller - Immunization history:: Adult Immunizations up to date. - Social history:: Smoking status: Patient denies any tobacco usage or history of. Screenin:40 Abuse screen: Denies threats or abuse. Denies injuries from another. Nutritional iw screening: No deficits noted. Tuberculosis screening: No symptoms or risk factors identified. Fall Risk None identified. Assessment: 09:00 General: Appears Behavior is calm. Pain: Complains of pain in low back area and right iw low back and left low back and lumbar area. Neuro: Level of Consciousness is awake, alert, obeys commands, Moves all extremities. Cardiovascular: Patient's skin is warm and dry. Respiratory: Respiratory effort is even, unlabored, Respiratory pattern is regular. Derm: Skin is intact, is healthy with good turgor. Musculoskeletal: Range of motion:. Vital Signs: 08:58 BP 127 / 94; Pulse 69; Resp 17; Temp 98; Pulse Ox 98% on R/A; Weight 111.13 kg; Height keller 5 ft. 10 in. (177.80 cm); 08:58 Body Mass Index 35.15 (111.13 kg, 177.80 cm) keller ED Course: 08:51 Patient arrived in ED. as 08:52 David Robles MD is Attending Physician. kdr 08:59 Triage completed. keller 09:00 Arm band placed on. iw 09:00 Patient has correct armband on for positive identification. iw 09:40 Shala Riddle, RN is Primary Nurse. iw 10:05 Spine Lumbar Wo Con In Process Unspecified. EDMS 10:16 Inserted saline lock: 20 gauge in right antecubital area, using aseptic technique. jw7 10:56 CT Lumbar Spine Wo Con Sent. eb 11:08 Héctor Mcdaniel MD is Referral Physician. kdr 11:41 No provider procedures requiring assistance completed. IV discontinued, intact, iw bleeding controlled, No redness/swelling at site. Pressure dressing applied. Administered Medications: 10:24 Drug: morphine 4 mg Route: IVP; Infused Over: 4 mins; Site: right antecubital; iw 11:00 Follow up: Response: No adverse reaction; Pain is decreased iw 10:24 Drug: Zofran (Ondansetron) 4 mg Route: IVP; Site: right antecubital; iw 11:00 Follow up: Response: No adverse reaction iw 11:35 Drug: Ketorolac 15 mg Route: IVP; Site: right antecubital; iw 12:00 Follow up: Response: No adverse reaction iw 11:36 Drug: SOLU-Medrol (methylPrednisoLONE) 125 mg Route: IVP; Site: right antecubital; iw 12:10 Follow up: Response: No adverse reaction iw Medication: 09:00 VIS not applicable for this client. iw Outcome: 11:09 Discharge ordered by . kdr 11:41 Discharged to home via wheelchair, with family. iw 11:41 Condition: good 11:41 Discharge instructions given to patient, family, Instructed on discharge instructions, follow up and referral plans. medication usage, Demonstrated understanding of instructions, follow-up care, medications, Prescriptions given X 4. 11:42 Patient left the ED. iw Signatures: Dispatcher [employer] EDMS David Robles MD MD kdr Martinez, Amelia as Williams, Irene, RN RN Angela Orozco Heather, Becka Begum RN jw7
--- NOTE | 2021-09-29 11:10 | EDPHYS ---
Physician Documentation [facility] Name: Binu Mcelroy Age: 45 yrs Sex: Male : 1975 Arrival Date: 09/29/2021 Time: 08:51 Bed 11 Private MD: ED Physician David Robles HPI: 09/29 12:35 This 45 yrs old Male presents to ER via Wheelchair with complaints of Back Pain. kdr 12:35 The patient presents with pain that is acute, and decreased range of motion, and an kdr injury. The symptoms are located in the low back, lumbar area and right low back. Onset: The symptoms/episode began/occurred suddenly, 3 day(s) ago. The pain radiates to the low back area and left low back. Associated signs and symptoms: The patient has no apparent associated signs or symptoms. The problem was sustained when bending over. Modifying factors: The patient symptoms are alleviated by nothing, the patient symptoms are aggravated by any movement, bending. Severity of symptoms: At their worst the symptoms were mild, moderate, just prior to arrival, in the emergency department the symptoms are unchanged. The patient has experienced a previous episode. The patient has not recently seen a physician. Rolled over and felt a pop then excruciating pain to right back/hip, radiating to left side. Historical: - Home Meds: 08:59 allopurinol 100 mg oral tab 3 times per day [Active]; amlodipine oral [Active]; Bumex 1 keller mg Oral tab 1 tab 2 times per day [Active]; carvedilol 12.5 mg Oral tab 1 tab 2 times per day [Active]; clopidogrel 75 mg Oral tab once daily [Active]; gabapentin 800 mg Oral tab 1 tab 3 times per day [Active]; gabapentin Oral [Active]; Imdur Oral [Active]; Insulin: Regular Sub-Q [Active]; metolazone 5 mg Oral tab Q 2 days [Active]; ProAir HFA inhalation [Active]; Symbicort inhalation [Active]; glipizide 5 mg Oral tr24 1 tab once daily [Active]; - PMHx: 08:59 angina pectoris; Cerebrovascular accident; CHF; CVA; diabetes mellitus; Myocardial keller infarction; Transient cerebral ischemia; - PSHx: 08:59 Heart Stents; Pacemaker/Defib; keller - Immunization history:: Adult Immunizations up to date. - Social history:: Smoking status: Patient denies any tobacco usage or history of. ROS: 12:35 Constitutional: Negative for fever, chills, and weight loss, Eyes: Negative for injury, kdr pain, redness, and discharge, Neck: Negative for injury, pain, and swelling, Cardiovascular: Negative for chest pain, palpitations, and edema, Respiratory: Negative for shortness of breath, cough, wheezing, and pleuritic chest pain, Abdomen/GI: Negative for abdominal pain, nausea, vomiting, diarrhea, and constipation, : Negative for injury, bleeding, discharge, and swelling, MS/Extremity: Negative for injury and deformity, Skin: Negative for injury, rash, and discoloration, Neuro: Negative for headache, weakness, numbness, tingling, and seizure activity. Psych: Negative for depression, anxiety, suicide ideation, homicidal ideation, and hallucinations, Allergy/Immunology: Negative for hives, rash, and allergies, Endocrine: Negative for neck swelling, polydipsia, polyuria, polyphagia, and marked weight changes, Hematologic/Lymphatic: Negative for swollen nodes, abnormal bleeding, and unusual bruising. 12:35 Back: Positive for injury or acute deformity, decreased range of motion, pain at rest, pain with movement, radiated pain, of the right low back. Exam: 12:35 Constitutional: This is a well developed, well nourished patient who is awake, alert, kdr and in no acute distress. Head/Face: Normocephalic, atraumatic. Eyes: Pupils equal round and reactive to light, extra-ocular motions intact. Lids and lashes normal. Conjunctiva and sclera are non-icteric and not injected. Cornea within normal limits. Periorbital areas with no swelling, redness, or edema. Neck: Trachea midline, no thyromegaly or masses palpated, and no cervical lymphadenopathy. Supple, full range of motion without nuchal rigidity, or vertebral point tenderness. No Meningismus. Chest/axilla: Normal chest wall appearance and motion. Nontender with no deformity. No lesions are appreciated. Cardiovascular: Regular rate and rhythm with a normal S1 and S2. No gallops, murmurs, or rubs. Normal PMI, no JVD. No pulse deficits. Respiratory: Lungs have equal breath sounds bilaterally, clear to auscultation and percussion. No rales, rhonchi or wheezes noted. No increased work of breathing, no retractions or nasal flaring. Abdomen/GI: Soft, non-tender, with normal bowel sounds. No distension or tympany. No guarding or rebound. No evidence of tenderness throughout. Back: No spinal tenderness. No costovertebral tenderness. Full range of motion. Skin: Warm, dry with normal turgor. Normal color with no rashes, no lesions, and no evidence of cellulitis. MS/ Extremity: Pulses equal, no cyanosis. Neurovascular intact. Full, normal range of motion. Neuro: Awake and alert, GCS 15, oriented to person, place, time, and situation. Cranial nerves II-XII grossly intact. Motor strength 5/5 in all extremities. Sensory grossly intact. Cerebellar exam normal. Normal gait. Psych: Awake, alert, with orientation to person, place and time. Behavior, mood, and affect are within normal limits. Vital Signs: 08:58 BP 127 / 94; Pulse 69; Resp 17; Temp 98; Pulse Ox 98% on R/A; Weight 111.13 kg; Height keller 5 ft. 10 in. (177.80 cm); 08:58 Body Mass Index 35.15 (111.13 kg, 177.80 cm) keller MDM: 11:09 Patient medically screened. kdr 12:35 Data reviewed: vital signs, nurses notes, lab test result(s), radiologic studies. kdr Counseling: I had a detailed discussion with the patient and/or guardian regarding: the historical points, exam findings, and any diagnostic results supporting the discharge/admit diagnosis, lab results, radiology results, the need for outpatient follow up. 07 09:44 Order name: CT Lumbar Spine Wo Con kdr 09/29 09:48 Order name: Spine Lumbar Wo Con; Complete Time: 10:56 EDMS 09/29 09:44 Order name: Urine Dipstick-Ancillary (obtain specimen) kdr Administered Medications: 10:24 Drug: morphine 4 mg Route: IVP; Infused Over: 4 mins; Site: right antecubital; iw 11:00 Follow up: Response: No adverse reaction; Pain is decreased iw 10:24 Drug: Zofran (Ondansetron) 4 mg Route: IVP; Site: right antecubital; iw 11:00 Follow up: Response: No adverse reaction iw 11:35 Drug: Ketorolac 15 mg Route: IVP; Site: right antecubital; iw 12:00 Follow up: Response: No adverse reaction iw 11:36 Drug: SOLU-Medrol (methylPrednisoLONE) 125 mg Route: IVP; Site: right antecubital; iw 12:10 Follow up: Response: No adverse reaction iw Disposition Summary: 09/29/21 11:09 Discharge Ordered Location: Home kdr Problem: new kdr Symptoms: have improved kdr Condition: Stable kdr Diagnosis - Low back pain kdr - Disc Herniation kdr - Spondylolysis, lumbar region kdr Followup: kdr - With: Private Physician - When: 2 - 3 days - Reason: If symptoms return, Further diagnostic work-up, Recheck today's complaints, Continuance of care, Re-evaluation by your physician Followup: kdr - With: Héctor Mcdaniel MD - When: 2 - 3 days - Reason: If symptoms return, Further diagnostic work-up, Recheck today's complaints, Continuance of care, Re-evaluation by your physician Discharge Instructions: - Discharge Summary Sheet kdr - Acute Back Pain, Adult kdr - Musculoskeletal Pain kdr - Back Exercises, [id number] kdr Forms: - Medication Reconciliation Form kdr - Thank You Letter kdr - Prescription Opioid Use kdr Prescriptions: - Ibuprofen 800 mg Oral Tablet - take 1 tablet by ORAL route every 8 hours As needed take with food; 30 tablet; kdr Refills: 0, Product Selection Permitted - Tramadol 50 mg Oral Tablet - take 1 tablet by ORAL route every 8 hours as needed for pain at night; 12 kdr tablet; Refills: 0, Product Selection Permitted - Medrol (Reinier) 4 mg Oral Tablets, Dose Pack - take 1 tablet by ORAL route as directed - follow package instructions; 1 kdr packet; Refills: 0, Product Selection Permitted - methocarbamol 750 mg Oral Tablet - take 2 tablets by ORAL route 3 times per day; 40 tablet; Refills: 0, Product kdr Selection Permitted Signatures: Dispatcher [employer] David Dumont MD MD kdr Shala Riddle RN RN Kika-StagerBhavana RN RN keller
[2021-09-29] MEDS ORDERED: METHYLPREDNISOLONE 125 MG INJ ONE (11:32)
[2021-09-29] MEDS ORDERED: KETOROLAC 30 MG/ML INJ ONE (11:33)
[2021-09-29 11:53] VITALS: BP 127/94; TEMP 98; O2SAT 98
== END 2021-09-29 11:42 | disposition home or self-care (01) ==
LOC: ER 08:49
DX: M54.59 Other low back pain (principal); M51.26 Other intervertebral disc displacement, lumbar region; M47.896 Other spondylosis, lumbar region
CPT/HCPCS: 72131; 96375; 96374; 99284; J2930; J2405

== ENCOUNTER 2021-10-04 16:33 | Inpatient (IN) | payer OTHER ==
--- NOTE | 2021-10-04 17:30 | RAD REPORT ---
EXAM DESCRIPTION: CT - Head Brain Wo Cont - 10/04/2021 5:21 pm CLINICAL HISTORY: Alteration of awareness/confusion COMPARISON: None TECHNIQUE: Computed axial tomography of the head was obtained. IV contrast was not requested. All CT scans are performed using dose optimization technique as appropriate and may include automated exposure control or mA/KV adjustment according to patient size. FINDINGS: An intracranial bleed is not seen . The ventricles are normal in caliber. 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 Fluid within the sinuses/ mastoids is not seen. IMPRESSION: No acute intracranial abnormality is seen. If patient's symptoms persist MRI of the bra in would be recommended.
[2021-10-04 18:11] LABS: Urine Blood 2+ (Negative); Urine Glucose Negative (Negative); Urine Protein 2+ (Negative)
[2021-10-04 18:20] LABS: Absolute Lymphocytes (CBC) 0.6 K/uL (0.7-4.9); Hematocrit 40.7 % (39.6-49.0); Lymphocytes % 5.3 % (15.3-44.8); MCV 95.4 fL (80-100); MPV 9.2 fL (7.6-11.3); RBC Red Blood Cell Count 4.27 M/uL (4.33-5.43)
--- NOTE | 2021-10-04 18:32 | RAD REPORT ---
EXAM DESCRIPTION: RAD - Shoulder Right 2 View - 10/04/2021 6:23 pm CLINICAL HISTORY: Right shoulder pain FINDINGS: No fracture or dislocation is seen. Mild narrowing of the AC joint.
[2021-10-04 18:42] LABS: Albumin 3.4 g/dL (3.4-5.0); Protein, Total 7.5 g/dL (6.4-8.2)
[2021-10-04 18:44] LABS: Potassium 5.1 mmol/L (3.5-5.1)
--- NOTE | 2021-10-04 18:51 | EDPHYS ---
Physician Documentation [facility] Name: Binu Mcelroy Age: 45 yrs Sex: Male : 1975 Arrival Date: 10/04/2021 Time: 16:34 Bed 5 Private MD: ED Physician Bharathi Palmer HPI: 10/04 17:54 This 45 yrs old Male presents to ER via Wheelchair with complaints of Doesn't Feel rn Right, last normal 10/02/21, talking slower/sleepy. 17:54 Pt reports "doesn't feel right", for atleast 2 days. Reports sleepy and feels fatigued, rn speaking slower. Denies head injury. No chest pain/sob/cough/abd pain/vomiting/diarrhea. Reports decreased appetite. No urinary symptoms. No new wounds or drainage from existing wound. Reports this is nothing like his previous CVAs or TIAs.. Onset: The symptoms/episode began/occurred 2 day(s) ago. Severity of symptoms: At their worst the symptoms were mild in the emergency department the symptoms are unchanged. The patient has not experienced similar symptoms in the past. The patient has not recently seen a physician. Historical: - Allergies: 16:44 NKDA; bh1 - Home Meds: 16:44 allopurinol 100 mg Oral tab 3 times per day [Active]; amlodipine oral [Active]; Bumex 1 bh1 mg Oral tab 1 tab 2 times per day [Active]; carvedilol 12.5 mg Oral tab 1 tab 2 times per day [Active]; clopidogrel 75 mg Oral tab once daily [Active]; gabapentin 800 mg Oral tab 1 tab 3 times per day [Active]; gabapentin Oral [Active]; glipizide 5 mg Oral tr24 1 tab once daily [Active]; Imdur Oral [Active]; Insulin: Regular Sub-Q [Active]; metolazone 5 mg Oral tab Q 2 days [Active]; ProAir HFA inhalation [Active]; Symbicort inhalation [Active]; - PMHx: 16:44 angina pectoris; Cerebrovascular accident; CHF; CVA; diabetes mellitus; Myocardial bh1 infarction; Transient cerebral ischemia; - PSHx: 16:44 Heart Stents; Pacemaker/Defib; bh1 - Immunization history:: Adult Immunizations up to date. - Social history:: Smoking status: Patient denies any tobacco usage or history of. - Family history:: not pertinent. - Hospitalizations: : No recent hospitalization is reported. ROS: 17:54 Constitutional: Negative for fever, chills, and weight loss, Eyes: Negative for injury, rn pain, redness, and discharge, Neck: Negative for injury, pain, and swelling, Cardiovascular: Negative for chest pain, palpitations, and edema, Respiratory: Negative for shortness of breath, cough, wheezing, and pleuritic chest pain, Abdomen/GI: Negative for abdominal pain, nausea, vomiting, diarrhea, and constipation, Back: Negative for injury and pain, MS/Extremity: Negative for injury and deformity, Skin: Negative for injury, rash, and discoloration, Neuro: Negative for headache, numbness, tingling, and seizure. Exam: 17:54 Constitutional: This is a well developed, well nourished patient who is awake, alert, rn and in no acute distress. Head/Face: Normocephalic, atraumatic. Eyes: Periorbital areas with no swelling, redness, or edema. Cardiovascular: Regular rate and rhythm. No pulse deficits. Respiratory: No increased work of breathing, no retractions or nasal flaring. Abdomen/GI: Soft, non-tender Skin: Warm, dry MS/ Extremity: Pulses equal, no cyanosis. Neuro: Awake and alert, GCS 15, oriented to person, place, time, and situation. Cranial nerves II-XII grossly intact. Motor strength 4/5 in all extremities. Sensory grossly intact. Cerebellar exam normal. Vital Signs: 16:42 BP 118 / 85; Pulse 72; Resp 18; Temp 97.6; Pulse Ox 96% on R/A; Weight 111.13 kg; 1 Height 5 ft. 10 in. (177.80 cm); Pain 10/10; 18:59 BP 127 / 80; Pulse 75; Resp 18 S; Pulse Ox 97% on R/A; jd3 19:33 BP 127 / 82; Pulse 70; Resp 18 S; Pulse Ox 93% on R/A; as6 21:36 BP 131 / 84; Pulse 72; Resp 18 S; Pulse Ox 95% on R/A; as6 16:42 Body Mass Index 35.15 (111.13 kg, 177.80 cm) bh1 MDM: 16:52 Patient medically screened. rn 18:46 Differential Diagnosis altered mental status, acute kidney failure, COVID, dehydration, clipper and turner side effect. Data reviewed: vital signs, nurses notes, lab test result(s), and as a result, I will admit patient. Counseling: I had a detailed discussion with the patient and/or guardian regarding: the historical points, exam findings, and any diagnostic results supporting the discharge/admit diagnosis, lab results, the need for further work-up and treatment in the hospital. Admission orders: after a detailed discussion of the patient's condition and case, the admit orders are written by me. 10/04 17:25 Order name: CBC with Diff; Complete Time: 18:24 rn 10/04 17:25 Order name: CMP; Complete Time: 18:46 rn 10/04 17:25 Order name: SARS-COV-2 RT PCR (Document "Date of Onset" if Symptomatic); Complete Time: rn 19:22 10/04 17:25 Order name: Procalcitonin; Complete Time: 19:22 rn 10/04 18:07 Order name: Glucose, Ancillary Testing; Complete Time: 18:24 EDMS 10/04 18:11 Order name: Urine Dipstick-Ancillary; Complete Time: 18:24 EDMS 10/04 17:00 Order name: CT Head Brain wo Cont; Complete Time: 18:24 rn 10/04 17:25 Order name: IV Start; Complete Time: 17:58 rn 10/04 17:25 Order name: Urine Dipstick-Ancillary (obtain specimen); Complete Time: 18:56 rn 10/04 17:25 Order name: XRAY Shoulder RIGHT 2 view; Complete Time: 18:34 rn 10/04 18:51 Order name: BNP; Complete Time: 19:22 iw 10/04 18:51 Order name: Chest Single View XRAY; Complete Time: 20:09 iw Administered Medications: 20:36 Drug: HYDROcodone-acetaminophen 5 mg-325 mg 1 tabs Route: PO; as6 21:35 Follow up: Response: No adverse reaction as6 Disposition Summary: 10/04/21 18:51 Hospitalization Ordered Hospitalization Status: Inpatient Admission rn Provider: Elie Norris rn [facility] ([facility] rn Condition: Stable rn Problem: new rn Symptoms: have improved rn Bed/Room Type: Standard rn Room Assignment: 214(10/04/21 20:53) cg Diagnosis - Acute kidney failure, unspecified rn - Other malaise and fatigue rn Forms: - Medication Reconciliation Form rn - SBAR form rn Signatures: Dispatcher [employer] EDBharathi Killian MD MD rn Attema, Lee, [employer]-C W[employer]-Cla1 Aline Person RN RN Jase Haas RN RN as6 Aag Valiente RN RN 1 Corrections: (The following items were deleted from the chart) 20:53 18:51 rn cg
--- NOTE | 2021-10-04 18:51 | ER ---
Nurse's Notes [facility] Name: Binu Mcelroy Age: 45 yrs Sex: Male : 1975 Arrival Date: 10/04/2021 Time: 16:34 Bed 5 Private MD: Diagnosis: Acute kidney failure, unspecified;Other malaise and fatigue Presentation: 10/04 16:42 Chief complaint: Patient states: PATIENT REPORTS BACK PAIN 2 DAYS AGO ON RIGHT SIDE ND 1 THEN RIGHT SHOULDER PAIN TODAY. HE ADMITS TO NOT FEELING WELL AND FEELING MORE RUN DOWN THAN USUAL. PATIENT ALSO REPORTS HEARING AN ECHO IN HIS EARS. Coronavirus screen: Vaccine status: Patient reports receiving the 2nd dose of the covid vaccine. Client denies travel out of the [place] in the last 14 days. Ebola Screen: Patient negative for fever greater than or equal to 101.5 degrees Fahrenheit, and additional compatible Ebola Virus Disease symptoms. Initial Sepsis Screen: Does the patient meet any 2 criteria? No. Patient's initial sepsis screen is negative. Does the patient have a suspected source of infection? No. Patient's initial sepsis screen is negative. Risk Assessment: Do you want to hurt yourself or someone else? Patient reports no desire to harm self or others. Onset of symptoms was October 03, 2021. 16:42 Method Of Arrival: Wheelchair [facility] 16:42 Acuity: CRISS 3 [facility] Triage Assessment: 16:46 General: Appears in no apparent distress. Behavior is calm, cooperative, appropriate [facility] for age. Pain: Complains of pain in anterior aspect of right shoulder and posterior aspect of right shoulder. Historical: - Allergies: 16:44 NKDA; bh1 - Home Meds: 16:44 allopurinol 100 mg Oral tab 3 times per day [Active]; amlodipine oral [Active]; Bumex 1 bh1 mg Oral tab 1 tab 2 times per day [Active]; carvedilol 12.5 mg Oral tab 1 tab 2 times per day [Active]; clopidogrel 75 mg Oral tab once daily [Active]; gabapentin 800 mg Oral tab 1 tab 3 times per day [Active]; gabapentin Oral [Active]; glipizide 5 mg Oral tr24 1 tab once daily [Active]; Imdur Oral [Active]; Insulin: Regular Sub-Q [Active]; metolazone 5 mg Oral tab Q 2 days [Active]; ProAir HFA inhalation [Active]; Symbicort inhalation [Active]; - PMHx: 16:44 angina pectoris; Cerebrovascular accident; CHF; CVA; diabetes mellitus; Myocardial bh1 infarction; Transient cerebral ischemia; - PSHx: 16:44 Heart Stents; Pacemaker/Defib; bh1 - Immunization history:: Adult Immunizations up to date. - Social history:: Smoking status: Patient denies any tobacco usage or history of. - Family history:: not pertinent. - Hospitalizations: : No recent hospitalization is reported. Screenin:18 Abuse screen: Denies threats or abuse. Nutritional screening: No deficits noted. jd3 Tuberculosis screening: No symptoms or risk factors identified. Fall Risk Ambulatory Aid- None/Bed Rest/Nurse Assist (0 pts). Gait- Normal/Bed Rest/Wheelchair (0 pts) Mental Status- Oriented to own ability (0 pts). Total Rudolph Fall Scale indicates No Risk (0-24 pts). Assessment: 17:15 General: Appears in no apparent distress. comfortable, Behavior is calm, cooperative, jd3 appropriate for age, flat, Reports fatigue for 1-2 days. Pain: Complains of pain in right shoulder Quality of pain is described as aching, sharp. Neuro: Collier Agitation-Sedation Scale (RASS): 0 - Alert and Calm Level of Consciousness is awake, alert, obeys commands, Oriented to person, place, time, situation, Speech is normal, Facial symmetry appears normal, Pupils are PERRLA, Intact Denies weakness dizziness, numbness. Cardiovascular: Denies chest pain, Capillary refill < 3 seconds Patient's skin is warm and dry. Respiratory: Airway is patent Respiratory effort is even, unlabored, Respiratory pattern is regular, symmetrical, Denies cough, shortness of breath. GI: Patient currently denies abdominal pain, constipation, diarrhea, nausea, vomiting. : Denies burning with urination, cramping. EENT: Reports nasal congestion. Derm: Skin is intact, Skin is dry, Skin is normal, Skin temperature is warm. Musculoskeletal: Circulation, motion, and sensation intact. Range of motion: intact in all extremities. 18:59 Reassessment: Patient appears in no apparent distress at this time. Patient and/or jd3 family updated on plan of care and expected duration. Pain level reassessed. Patient is alert, oriented x 3, equal unlabored respirations, skin warm/dry/pink. 19:33 Reassessment: Patient appears in no apparent distress at this time. Patient is alert, as6 oriented x 3, equal unlabored respirations, skin warm/dry/pink. Vital Signs: 16:42 BP 118 / 85; Pulse 72; Resp 18; Temp 97.6; Pulse Ox 96% on R/A; Weight 111.13 kg; 1 Height 5 ft. 10 in. (177.80 cm); Pain 10/10; 18:59 BP 127 / 80; Pulse 75; Resp 18 S; Pulse Ox 97% on R/A; jd3 19:33 BP 127 / 82; Pulse 70; Resp 18 S; Pulse Ox 93% on R/A; as6 21:36 BP 131 / 84; Pulse 72; Resp 18 S; Pulse Ox 95% on R/A; as6 16:42 Body Mass Index 35.15 (111.13 kg, 177.80 cm) [facility] ED Course: 16:34 Patient arrived in ED. am2 16:44 Triage completed. 1 16:46 Arm band placed on right wrist. 1 16:52 Bharathi Palmer MD is Attending Physician. rn 17:15 Luis Tovar RN is Primary Nurse. jd3 17:18 Patient has correct armband on for positive identification. Bed in low position. Call jd3 light in reach. Side rails up X 1. Adult w/ patient. Client placed on continuous cardiac and pulse oximetry monitoring. NIBP monitoring applied. bench hand machine on. Pulse ox on. NIBP on. 17:23 CT Head Brain wo Cont In Process Unspecified. EDMS 17:59 Inserted saline lock: 20 gauge in right antecubital area, using aseptic technique. jd3 Blood collected. 18:24 XRAY Shoulder RIGHT 2 view In Process Unspecified. EDMS 18:50 Elie Norris MD is Hospitalizing Provider. rn 19:17 Chest Single View XRAY In Process Unspecified. EDMS 21:35 No provider procedures requiring assistance completed. Patient admitted, IV remains in as6 place. Administered Medications: 20:36 Drug: HYDROcodone-acetaminophen 5 mg-325 mg 1 tabs Route: PO; as6 21:35 Follow up: Response: No adverse reaction as6 Medication: 17:18 VIS not applicable for this client. jd3 Outcome: 18:51 Decision to Hospitalize by Provider. rn 21:35 Admitted to Med/surg accompanied by tech, family with patient, via wheelchair, room as6 214, with chart. 21:35 Condition: stable 21:35 Instructed on the need for admit. 21:36 Patient left the ED. as6 Signatures: Dispatcher [employer] EDMS Bharathi Palmer MD MD rn Moreno, Amanda am2 Davies, Jonathon, RN RN jd3 Jase Maciel RN RN as6 Aga Valiente RN RN bh1 Corrections: (The following items were deleted from the chart) 16:45 16:42 Chief complaint: Patient states: PATIENT REPORTS BACK PAIN 2 DAYS AGO ON RIGHT bh1 SIDE ND THEN RIGHT SHOULDER PAIN TODAY. HE ADMITS TO NOT FEELING WELL AND FEELING MORE RUN DOWN THAN USUAL. bh1
--- NOTE | 2021-10-04 19:46 | P.HP ---
Certification for Inpatient Patient admitted to: Inpatient With expected LOS: >2 Midnights Patient will require the following post-hospital care: None Practitioner: I am a practitioner with admitting privileges, knowledge of patient current condition, hospital course, and medical plan of care. Services: Services provided to patient in accordance with Admission requirements found in Title 42 Section 412.3 of the Code of Federal Regulations <SholaAníbal Howard - Last Filed: 10/04/21 19:39> Patient History Date of Service: 10/04/21 History of Present Illness: 45-year-old male with history of chronic systolic congestive heart failure, CKD 4, insulin-dependent diabetes, CVA, CAD with pacemaker/defibrillator in place presents to the emergency department for generalized malaise/fatigue. He reports not feeling well over the course of the last few days. He said he was feeling like he was taking on fluid from his CHF so he has been taking his Bumex twice a day rather than once a day as well as reinitiating his metolazone last few days or week. Patient was evaluated in the emergency department his labs revealed acute worsening of CKD 4 with a creatinine of 5.21 BUN of 130 GFR of 13 his BNP also elevated 34,476 and sodium is 133 his COVID test is negative his CBC was overall unremarkable his chest x-ray is currently pending interpretation CT his head was negative for acute findings. Suspect patient's symptoms are related to worsening his renal function, uremia. His urine was significant for 2+ blood and 2+ protein. Plan to admit for further evaluation and management of acute renal failure - Past Medical/Surgical History Diabetic: Yes -: Systolic congestive heart failure -: CAD -: Diabetes mellitus type 2insulin-dependent -: Hypertension -: CKD4 -: Gout -: History of PE on anticoagulation therapy -: MT -: CVA -: hyperlipidemia -: Cardiac stents -: Pacemaker/defibrillator Psychosocial/ Personal History: Patient lives at home with his fiance - Family History Family History: Reviewed- Non-Contributory - Social History Alcohol use: No CD- Drugs: No Caffeine use: Yes Place of Residence: Home <Aníbal Jolley - Last Filed: 10/04/21 19:39> Date of Service: 10/05/21 <Elie Norris - Last Filed: 10/05/21 15:43> Allergies No Known Allergies Allergy (Verified 04/04/21 21:27) Home Medications: Gabapentin 1 tab PO TID 01/02/21 Insulin Glargine,Hum.rec.anlog [Lantus] 25 units SQ BID 01/02/21 Insulin Lispro [Humalog] See Protocol SQ TID 01/02/21 Isosorbide Mononitrate [Isosorbide Mononitrate ER] 1 tab PO DAILY 01/02/21 Rosuvastatin Calcium [Crestor] 1 tab PO BEDTIME 01/02/21 Allopurinol 100 mg PO TID 02/03/21 Amlodipine [Norvasc*] 5 mg PO DAILY 02/03/21 Glipizide [Glipizide ER] 1 tab PO DAILY 08/08/21 Bumetanide [Bumex*] 1 mg PO DAILY tab 08/10/21 Clopidogrel Bisulfate [Plavix*] 75 mg PO DAILY tablet 08/10/21 Tramadol HCl 100 mg PO DAILYPRN PRN 10/05/21 carvediloL [Coreg] 25 mg PO BID 10/05/21 Review of Systems 10-point ROS is otherwise unremarkable General: Weakness, Malaise, Other <Aníbal Jolley - Last Filed: 10/04/21 19:39> Physical Examination - Physical Exam General: Alert, In no apparent distress, Oriented x3 HEENT: Atraumatic, PERRLA, Other (MM dry), EOMI, Sclerae nonicteric Neck: Supple, 2+ carotid pulse no bruit, No LAD, Without JVD or thyroid abnormality Respiratory: Clear to auscultation bilaterally, Normal air movement Cardiovascular: No edema, Regular rate/rhythm, Normal S1 S2 Capillary refill: <2 Seconds Gastrointestinal: Normal bowel sounds, No tenderness Musculoskeletal: No tenderness Integumentary: No rashes Neurological: Normal speech, Normal strength at 5/5 x4 extr, Normal tone, Normal affect - Studies Laboratory Data (last 24 hrs) 10/04/21 17:54: Sodium 133 L, Potassium 5.1, BUN 130 H, Creatinine 5.21 H*, Glucose 136 H, Total Bilirubin 1.0, AST 30, ALT 37, Alkaline Phosphatase 138 H 10/04/21 17:54: WBC 10.6, Hgb 13.6, Hct 40.7, Plt Count 202 <Aníbal Jolley - Last Filed: 10/04/21 19:39> - Studies Laboratory Data (last 24 hrs) 10/04/21 17:54: Sodium 133 L, Potassium 5.1, BUN 130 H, Creatinine 5.21 H*, Glucose 136 H, Total Bilirubin 1.0, AST 30, ALT 37, Alkaline Phosphatase 138 H 10/04/21 17:54: WBC 10.6, Hgb 13.6, Hct 40.7, Plt Count 202 <Elie Norris - Last Filed: 10/05/21 15:43> Assessment and Plan - Plan Assessment: Acute worsening of CKD 4/acute renal failure Chronic systolic congestive heart failure Diabetes mellitus type 2insulin-dependent CAD Plan: Acute worsening of CKD 4/acute renal failure: Patient denies recent exposure to IV contrast, NSAIDs, antibiotics he reports he has been taking extra doses of his diuretics including his metolazone and his Bumex over the course the last week as he felt like he was retaining fluid, he feels like the fluid retention is much better at this time, closer to his baseline but has been feeling very unwell the past 2 days this is likely related to his significantly elevated BUN. Patient reports very poor p.o. intake over the course last few days mucous membranes appear dry at this time we will hold diuretics provide with gentle hydration overnight obtain renal ultrasound and consult nephrology. Chronic systolic congestive heart failure: Review home medications, continue as appropriate, will hold diuretics at this time. Monitor on telemetry. Diabetes mellitus type 2insulin-dependent: Patient has been taking his Levemir approximately 25 mg twice daily we will start patient at 15 units of long-acting insulin twice daily with mild sliding scale increase as necessary. CAD: Continue home medications, monitor on telemetry. DVT PPX: Full Code status: Heparin Discharge Plan: Home Plan to discharge in: 72 Hours - Advance Directives Does patient have a Living Will: No Does patient have a Durable POA for Healthcare: No - Code Status/Comfort Care Code Status Assessed: Yes (Full code) Critical Care: No Time Spent Managing Pts Care (In Minutes): 70 <Aínbal Jolley - Last Filed: 10/04/21 19:39> Physician Review Additional Text: I have personally seen and evaluated Mr. Binu Mcelroy. I reviewed the notes and assessments performed by Aníbal Jolley NP. I independently performed my own history and physical examination. I agree with the assessment and plan as outlined in his note. I concur with his documentation of Mr. Mcelroy. <Elie Norris - Last Filed: 10/05/21 15:43>
--- NOTE | 2021-10-04 20:06 | RAD REPORT ---
EXAM DESCRIPTION: Emigdio Single View10/04/2021 7:15 pm CLINICAL HISTORY: Acute renal failure COMPARISON: July 2021 FINDINGS: Mild bilateral interstitial lung opacities. Heart is mildly to moderately enlarged. Pacemaker leads in place IMPRESSION: Mild interstitial pulmonary edema
[2021-10-04] MEDS ORDERED: HYDROCODONE/APAP 5/325 MG TAB ONE (20:41)
[2021-10-04] MEDS: HEPARIN 5000 UNIT/ML 1 ML VIAL SQ SCH (21:42)
[2021-10-04] MEDS ORDERED: ONDANSETRON 4 MG/2 ML VIAL IV PRN (21:42)
[2021-10-04] MEDS ORDERED: ACETAMINOPHEN 500 MG TAB PO PRN (21:42)
[2021-10-04] MEDS: INSULIN -REGULAR HUMAN 50 UNIT/0.5 ML ML SQ SCH (21:42)
[2021-10-04] MEDS: NA CHLORIDE 0.9% 1,000 ML IV SCH (22:52)
[2021-10-05] MEDS: MORPHINE 2 MG/ML SYR IV PRN ×2 (03:24→08:41)
[2021-10-05 03:52] LABS: Absolute Lymphocytes (CBC) 0.6 K/uL (0.7-4.9); Hematocrit 41.7 % (39.6-49.0); Lymphocytes % 4.4 % (15.3-44.8); MCV 95.7 fL (80-100); MPV 9.2 fL (7.6-11.3); RBC Red Blood Cell Count 4.36 M/uL (4.33-5.43)
[2021-10-05 04:10] LABS: Albumin 3.4 g/dL (3.4-5.0); Bilirubin Total 0.9 mg/dL (0.2-1.0); Potassium 4.5 mmol/L (3.5-5.1); Protein, Total 7.7 g/dL (6.4-8.2)
[2021-10-05 04:22] LABS: Urine Appearance Clear (Clear); Urine Bilirubin Negative (Negative); Urine Blood 1+ (Negative); Urine Color Yellow (Yellow); Urine Glucose Negative (Negative); Urine Protein 3+ (Negative); Urine Urobilinogen 0.2 mg/dL (0.2-1.0); Urine pH 5.5 (5.0-7.0)
[2021-10-05 04:42] LABS: Urine Amorphous Sediment 1+ /HPF (NONE SEEN); Urine Bacteria >50 /HPF (NONE SEEN); Urine Mucus 1+ /HPF (NONE SEEN)
[2021-10-05] MEDS: INSULIN -REGULAR HUMAN 50 UNIT/0.5 ML ML SQ SCH ×4 (07:30→21:00)
[2021-10-05] MEDS: HEPARIN 5000 UNIT/ML 1 ML VIAL SQ SCH (08:10)
[2021-10-05] MEDS: INSULIN GLARGINE 100 UNIT/ML SQ SCH ×2 (08:42→21:00)
[2021-10-05] MEDS: NA CHLORIDE 0.9% 1,000 ML IV SCH (11:02)
[2021-10-05 11:56] LABS: Urine Bilirubin Negative (Negative); Urine Blood 2+ (Negative); Urine Color Yellow (Yellow); Urine Glucose Negative (Negative); Urine Protein 3+ (Negative); Urine Urobilinogen 0.2 mg/dL (0.2-1.0); Urine pH 5.5 (5.0-7.0)
[2021-10-05 12:05] LABS: Urine Amorphous Sediment 3+ /HPF (NONE SEEN); Urine Bacteria NONE SEEN /HPF (NONE SEEN)
[2021-10-05 12:06] LABS: Urine Appearance SL CLOUDY (Clear)
--- NOTE | 2021-10-05 13:31 | RAD REPORT ---
EXAM DESCRIPTION: US - Renal Ultrasound-Complete - 10/05/2021 1:25 pm CLINICAL HISTORY: ARF Flank pain COMPARISON: Chest Single View dated 08/09/2021; Renal Ultrasound-Complete dated 08/09/2021 FINDINGS: Both kidneys are normal in size, shape and echotexture. The right kidney measures 11.1 x 5.7 x 5.1 cm. No hydronephrosis, focal mass or perinephric fluid. The left kidney measures 10.3 x 5.1 x 4.9 cm. No hydronephrosis, focal mass or perinephric fluid. The urinary bladder is incompletely distended without gross abnormality seen. IMPRESSION: Unremarkable renal sonogram.
--- NOTE | 2021-10-05 14:06 | P.CNS ---
Date of Consult: 10/05/21 Requesting Physician: Elie Norris Chief Complaint: Fatigue History of Present Illness: 45M w/ PMHx of chronic systolic heart failure, proteinuric CKD 4, DM2, CVA, CAD with pacemaker/defibrillator, & pulmo embolism, who p/w generalized malaise/fatigue & BLE edema for the past several days. He has been on bumex at home & he doubled the dose w/o benefit. He is referred to Nephrology for KARYN. SCr 5.2. BNP sig elevated. CXR + mild pulmo edema. Admitted for further eval & mngt. Allergies No Known Allergies Allergy (Verified 04/04/21 21:27) Home Medications: Gabapentin 1 tab PO TID 01/02/21 Insulin Glargine,Hum.rec.anlog [Lantus] 25 units SQ BID 01/02/21 Insulin Lispro [Humalog] See Protocol SQ TID 01/02/21 Isosorbide Mononitrate [Isosorbide Mononitrate ER] 1 tab PO DAILY 01/02/21 Rosuvastatin Calcium [Crestor] 1 tab PO BEDTIME 01/02/21 Allopurinol 100 mg PO TID 02/03/21 Amlodipine [Norvasc*] 5 mg PO DAILY 02/03/21 Glipizide [Glipizide ER] 1 tab PO DAILY 08/08/21 Bumetanide [Bumex*] 1 mg PO DAILY tab 08/10/21 Clopidogrel Bisulfate [Plavix*] 75 mg PO DAILY tablet 08/10/21 Tramadol HCl 100 mg PO DAILYPRN PRN 10/05/21 carvediloL [Coreg] 25 mg PO BID 10/05/21 - Past Medical/Surgical History Diabetic: Yes -: Systolic congestive heart failure -: CAD -: Diabetes mellitus type 2insulin-dependent -: Hypertension -: CKD4 -: Gout -: History of PE on anticoagulation therapy -: NV -: CVA -: hyperlipidemia -: Cardiac stents -: Pacemaker/defibrillator Psychosocial/ Personal History: Patient lives at home with his fiance - Social History Smoking Status: Unknown if ever smoked Alcohol use: No CD- Drugs: No Caffeine use: Yes Place of Residence: Home Review of Systems General: Weakness Eyes: Unremarkable ENT: Unremarkable Respiratory: Shortness of Breath Cardiovascular: Edema Gastrointestinal: Unremarkable Genitourinary: Unremarkable Musculoskeletal: Unremarkable Integumentary: Unremarkable Neurological: Weakness Lymphatics: Unremarkable Physical Examination Temp Pulse Resp BP Pulse Ox 97.2 F 78 18 153/98 H 92 10/05/21 12:00 10/05/21 12:00 10/05/21 12:00 10/05/21 12:00 10/05/21 12:00 General: Other (Appears as his stated age) HEENT: Atraumatic, Normocephalic Neck: Supple, JVD not distended Respiratory: Clear to auscultation bilaterally Cardiovascular: No rubs, No murmurs, Edema Gastrointestinal: Soft and benign, No rebound Musculoskeletal: No clubbing, Swelling Integumentary: No warmth Neurological: Normal speech, Normal tone Lymphatics: No axilla or inguinal lymphadenopathy Urinary: Other (No bladder distention) External genitalia: Deferred Rectal: Deferred Laboratory Data (last 24 hrs) 10/04/21 17:54: Sodium 133 L, Potassium 5.1, BUN 130 H, Creatinine 5.21 H*, Glucose 136 H, Total Bilirubin 1.0, AST 30, ALT 37, Alkaline Phosphatase 138 H 10/04/21 17:54: WBC 10.6, Hgb 13.6, Hct 40.7, Plt Count 202 Conclusions/Impression: # KARYN likely 2/2 CRS1 GFR 13 Urinalysis w/ proteinuria & hematuria but no pyuria Renal US unremarkable CPK not elevated, no rhabdo F/u random urine chem, upcr, iPTH, C3, C4, ANCA Insert higginbotham Strict I/O, monitor renal panel # Proteinuric CKD4 Baseline GFR 25-28 Monitor renal panel # Acidosis Mild, monitor # Severe pulmo Htn, suspect primarily from pulmo embolism, aggravated by L-sided heart dse Dx'ed w/ pulmo embolism in Jan 2021 +JVD, 2+ BLE edema, but no rales. Pulmo htn likely precapillary, suspect primarily from pulmo embolism CXR +mild pulmo edema BNP sig elevated Recent TTE showed LVEF 35-40% w/ severe pulmo Htn > 60 mmHg, severe TR F/u TIFF F/u chest CT non-contrast to eval other reasons for his severe pulmo Htn F/u urine chem to assess for ongoing secondary hyperaldo Unloading the R side of his heart w/ lots of leah minerva will inc renal bld flow & improve KARYN Start Wendell 50 mg po bid for better natriuresis Start Veltass once available tomorrow to prevent hyperkalemia from adela Start Bumex 3 mg IV bid Do NOT restrict fluid intake unless he develops hypoNa < 130 meq/L Resume Eliquis po bid Incentive spirometry Nebs prn May benefit from Revatio trial Dc NS gtt Avoid Na-containing IV fluid as he is already way Na overloaded Strictly low Na diet Weigh daily in standing # Secondary hyperPTH iPTH elevated at 467 25OHD low at 28 Start calcitriol Monitor Ca & Phos
[2021-10-05] MEDS ORDERED: SPIRONOLACTONE 25 MG TABLET PO STA (14:45)
[2021-10-05] MEDS ORDERED: BUMETANIDE 1 MG/4 ML VIAL IV STA (14:46)
[2021-10-05] MEDS: HYDROMORPHONE HCL 0.5 MG/0.5 ML INJ IV PRN ×3 (14:58→23:24)
--- NOTE | 2021-10-05 15:21 | P.PN ---
Subjective Date of Service: 10/05/21 Chief Complaint: Generalized Weakness No acute changes since admission. He reports that he feels slightly better, but his primary concern is significant pain in his right shoulder. He denies any chest pain, palpitations, or shortness of breath. Review of Systems General: Unremarkable Eyes: Unremarkable ENT: Unremarkable Respiratory: Unremarkable Cardiovascular: Unremarkable Gastrointestinal: Unremarkable Genitourinary: Unremarkable Musculoskeletal: Shoulder Pain (right) Integumentary: Unremarkable Neurological: Unremarkable Lymphatics: Unremarkable Physical Examination - Vital Signs Temperature: 97.2 F Blood Pressure: 153/98 Pulse: 78 Respirations: 18 Pulse Ox (%): 92 - Physical Exam General: Alert, In no apparent distress, Oriented x3 HEENT: Atraumatic, Mucous membr. moist/pink, EOMI, Sclerae nonicteric Neck: Supple, JVD not distended Respiratory: Clear to auscultation bilaterally, Normal air movement Cardiovascular: No edema, Regular rate/rhythm, Normal S1 S2, No gallops, No rubs, No murmurs Gastrointestinal: Normal bowel sounds, No tenderness, No rebound, No guarding Musculoskeletal: No erythema, No tenderness, No warmth, Other (significant right shoulder pain with abduction past 45 degrees) Integumentary: No rashes Neurological: Normal speech, Normal affect - Studies Laboratory Data (last 24 hrs) 10/04/21 17:54: Sodium 133 L, Potassium 5.1, BUN 130 H, Creatinine 5.21 H*, Glucose 136 H, Total Bilirubin 1.0, AST 30, ALT 37, Alkaline Phosphatase 138 H 10/04/21 17:54: WBC 10.6, Hgb 13.6, Hct 40.7, Plt Count 202 Medications List Reviewed: Yes Assessment And Plan - Plan # KDIGO Stage III Acute Kidney Injury on Chronic Kidney Disease Stage IV # Uremia secondary to above # Microscopic Hematuira Per history, it appears that he took additional doses of his diuretics for several days to a week due to concern for CHF. - Evaluation thus far: - Creatinine = 5.21 -> 5.12 (baseline creatinine ~2.7-3.3) - BUN = 130 -> 109 - Urinalysis = 2+ blood, 10-20 RBCs, 3+ protein - Follow-up with PCP regarding microscopic hematuria - Renal ultrasound = "unremarkable renal sonogram." - Management plan: - Nephrology consulted and spoke with Dr. Godoy - recommendations appreciated - Recommended bumetanide and spironolactone - Monitor creatinine and urine output - Renally dose medications # Acute on Chronic Combined Systolic/Diastolic Congestive Heart Failure with Reduced Ejection Fraction (LVEF 35-40 %) # Severe Pulmonary Hypertension - secondary to prior Pulmonary Embolism? # Coronary Artery Disease - Consult Cardiology and notified Dr. Moncada - recommendations appreciated - NT-Pro BNP = 34,476 - Last transthoracic echocardiogram (08/08/2021) - "moderately depressed left ventricular ejection fraction 35-40%. severe inferior wall hypokinesis. moderate to severe tricuspid regurgitation. mild mitral regurgitation, mild pulmonic insufficiency, mild aortic insufficiency. severe pulmonary hypertension with right ventricular systolic pressure greater than 60mmhg. moderate diastolic dysfunction." - Diuresis with IV bumetanide for today - Resume apixban - appears that he has been non-compliant - Daily weights - Strict I/O - Cardiac diet, 1.5 L fluid restriction, 2 g Na restriction # Insulin-Dependent Diabetes Mellitus - Continue insulin glargine 15 units daily + correction scale insulin # Right Shoulder Pain On examination, his right shoulder deficits appear consistent with a rotator cuff injury. - Follow-up as an outpatient for MRI right shoulder Elie Norris MD Discharge Plan: Home Plan to discharge in: Greater than 2 days - Code Status/Comfort Care Code Status Assessed: Yes Code Status: Full Code
--- NOTE | 2021-10-05 16:19 | RAD REPORT ---
EXAM DESCRIPTION: CT - Thorax Wo Con CLINICAL HISTORY: Chest pain SOB, assess for pulmo Htn, pulmo edema COMPARISON: No comparisons FINDINGS: Tree-in-bud opacities are present in the right upper lobe anteriorly. Minimal linear atele ctasis is present in the lung bases. Small right pleural effusion is noted. No pneumothorax. Pacemake r wires are present. No axillary, mediastinal or hilar adenopathy. Aorta and pulmonary arterial tree are normal sized. No concerning bony finding. No gross upper abdominal finding. All CT scans are performed using dose optimization technique as appropriate and may include automated exposure control or mA/KV adjustment according to patient size. IMPRESSION: Right upper lobe tree-in-bud opacity suspicious for endobronchial spread of infection. Small right pleural effusion.
[2021-10-05 16:33] LABS: UR PROTEIN 307.7 mg/dL (<11.9); Urine Protein/Creatinine Ratio 4.73 ratio (<0.15)
[2021-10-05] MEDS: WARFARIN SODIUM 5 MG TAB PO SCH (18:43)
[2021-10-05] MEDS: SPIRONOLACTONE 25 MG TABLET PO SCH (18:53)
[2021-10-05] MEDS: BUMETANIDE 1 MG/4 ML VIAL IV SCH (18:54)
--- NOTE | 2021-10-05 19:23 | CON ---
Date of Consultation: 10/05/2021 Reason For Consultation: Congestive heart failure and coronary artery disease. History Of Present Illness: This is a 45-year-old male with history of chronic systolic congestive h eart failure, chronic kidney disease, ejection fraction is in the 30s as per his report, diabetes, CV A, coronary artery disease, pacemaker with ICD placement, presented with generalized fatigue and weak ness for the past few days. He has been taking Bumex and Zaroxolyn when felt low energy, short of br eath with lower extremity edema. Past Medical History: As outlined above in HPI. Medications: Refer to reconciliation sheet for detailed list. Allergies: NO KNOWN DRUG ALLERGIES. Family History: No premature coronary artery disease or cancer. Social History: He does not smoke or drink. Does not use any drugs. Review of Systems: All systems reviewed and they were negative except for what mentioned in HPI. Physical Examination: Vital Signs: Reviewed. Head and Neck: Pupils are equal, reactive to light. Intact eye movements. Mild JVD elevation. No cervical lymphadenopathy. Neck is supple. Thyroid is not enlarged. Lungs: He has crackles in both lung bases. No accessory muscle use. No muscle retraction. Heart: Irregular. No extra sounds. Abdomen: Soft, nontender. Bowel sounds positive. No organomegaly. No masses or hernia. No rigidi ty or rebound. Extremities: No clubbing or cyanosis. Intact pulses. Positive edema. Skin: No rash or nodules. Neurologic: Alert, awake. No acute focal deficits appreciated. Lymph Nodes: No cervical or axillary lymphadenopathy. Investigations: Creatinine 5.12. NT-proBNP is 34,476. The CT scan of the chest suggestive of pneum onia. Assessment And Recommendations: 1.Acute on chronic congestive heart failure exacerbation. Agree with the current regimen of diureti cs, Bumex and Aldactone. Monitor carefully BUN, creatinine, and electrolytes. Explained to the nurys ent that he will likely require dialysis in the future. Consult Nephrology. Low salt intake and carolina ly body weight and strict fluid based on Nephrology recommendations. The patient is noted to have ej ection fraction 35% to 40%. 2.Acute on chronic kidney failure. Follow up as per Nephrology. 3.Anticoagulation. Noted that the patient is on 5 mg of Eliquis with his kidney function. Recommen d to drop this to 2.5 mg twice a day. SR/MODL Voice ID: [id number] Report ID: [id number]
[2021-10-05] MEDS ORDERED: APIXABAN 5 MG TABLET PO SCH (21:00)
[2021-10-05 22:12] LABS: Protime INR 1.5
[2021-10-06 03:03] LABS: Absolute Lymphocytes (CBC) 0.6 K/uL (0.7-4.9); Hematocrit 42.9 % (39.6-49.0); Lymphocytes % 3.8 % (15.3-44.8); MCV 96.3 fL (80-100); MPV 9.2 fL (7.6-11.3); RBC Red Blood Cell Count 4.45 M/uL (4.33-5.43)
[2021-10-06 03:14] LABS: Albumin 3.2 g/dL (3.4-5.0); Bilirubin Total 0.9 mg/dL (0.2-1.0); Potassium 4.1 mmol/L (3.5-5.1)
[2021-10-06 03:26] LABS: Protime INR 1.69
[2021-10-06] MEDS: HYDROMORPHONE HCL 0.5 MG/0.5 ML INJ IV PRN ×4 (04:23→21:44)
[2021-10-06] MEDS: INSULIN -REGULAR HUMAN 50 UNIT/0.5 ML ML SQ SCH ×4 (07:26→22:08)
[2021-10-06 08:15] LABS: Magnesium 2.4 mg/dL (1.8-2.4); Phosphorus 6.5 mg/dL (2.5-4.9)
[2021-10-06] MEDS: SPIRONOLACTONE 25 MG TABLET PO SCH ×2 (08:36→16:36)
[2021-10-06] MEDS: CALCITROL 0.25 MCG CAP PO SCH (08:36)
[2021-10-06] MEDS: BUMETANIDE 1 MG/4 ML VIAL IV SCH ×2 (08:37→16:37)
[2021-10-06] MEDS: VITAMIN D 1000 UNIT TAB PO SCH (08:37)
[2021-10-06] MEDS: INSULIN GLARGINE 100 UNIT/ML SQ SCH ×2 (08:37→21:45)
[2021-10-06] MEDS: HEPARIN/D5W 25,000 UNIT/500 ML BAG IV SCH (13:43)
[2021-10-06] MEDS: WARFARIN SODIUM 5 MG TAB PO SCH (16:37)
--- NOTE | 2021-10-06 18:51 | PN ---
Date of Progress Note: 10/06/2021 Subjective: Seen by bedside. Still has some shortness of breath on exertion. No chest pain. No na usea, vomiting, diarrhea. Physical Examination: Vital Signs: Reviewed. Head and Neck: Pupils are equal, reactive to light. Intact eye movements. No JVD. No cervical lym phadenopathy. Neck is supple. Thyroid is not enlarged. Lungs: Decreased breathing sounds with crackles on the bases. No accessory muscle use or muscle ret raction. Heart: Regular rate and rhythm. No extra sounds. Abdomen: Soft, nontender. Bowel sounds positive. No organomegaly. No masses or hernia. No rigidi ty or rebound. Extremities: No clubbing or cyanosis. Intact pulses. Skin: No rash. Neurologic: Alert, awake. No acute focal deficits appreciated. Lymph Nodes: No cervical or axillary lymphadenopathy. Investigations: His creatinine is 4.94. Hemoglobin is 14. Assessment And Recommendations: 1.Acute on chronic congestive heart failure. Continue Bumex as well as Aldactone. The patient is d iuresing very well and his kidney function is improving. We will continue current management. 2.History of pulmonary embolism. The patient was started on warfarin. As he has advanced kidney fa ilure, Eliquis was discontinued appropriately. Recommendation will be to obtain echocardiogram to t his heart function evaluated and then further recommendations to follow. /EUGENIO Voice ID: [id number] Report ID: [id number]
[2021-10-07] MEDS ORDERED: METOPROLOL TARTRATE 5 MG/5 ML INJ IV STA (00:01)
[2021-10-07] MEDS ORDERED: METOPROLOL TARTRATE 5 MG/5 ML INJ IV ONE (00:16)
[2021-10-07] MEDS: HYDROMORPHONE HCL 0.5 MG/0.5 ML INJ IV PRN ×4 (02:12→21:24)
[2021-10-07 05:40] LABS: Absolute Lymphocytes (CBC) 0.7 K/uL (0.7-4.9); Hematocrit 38.7 % (39.6-49.0); Lymphocytes % 5.6 % (15.3-44.8); MCV 95.1 fL (80-100); MPV 9.3 fL (7.6-11.3); RBC Red Blood Cell Count 4.07 M/uL (4.33-5.43)
[2021-10-07 05:49] LABS: Protime INR 1.57
[2021-10-07 06:00] LABS: Albumin 2.8 g/dL (3.4-5.0); Bilirubin Total 0.9 mg/dL (0.2-1.0); Potassium 3.7 mmol/L (3.5-5.1); Protein, Total 7.2 g/dL (6.4-8.2)
[2021-10-07] MEDS: HEPARIN/D5W 25,000 UNIT/500 ML BAG IV SCH ×2 (06:36→22:40)
--- NOTE | 2021-10-07 06:49 | PN ---
Date of Progress Note: 10/06/2021 Chief Complaint: Acute kidney injury. History Of Present Illness: The patient is a 45-year-old male with multiple medical problems. He has history of chronic systolic congestive heart failure, proteinuria, chronic kidney disease stage 4, diabetes mellitus type 2, history of CVA, coronary artery disease with pacemaker and defibrillator, history of pulmonary emboli. The patient presented to the hospital because of malaise and generalized weakness. He was complaining of lower extremity edema for last several days. On arrival to the hospital, he was found to have elevated BUN and creatinine. Creatinine level was up to 5.2. Chest x-ray showed mild pulmonary edema. Review of Systems: Patient denies fever or chills. Denies nausea, vomiting, or abdominal pain, dysuria, hematuria. Physical Examination: General: Not in acute distress. Lungs: bilateral rhonchi. Heart: S1, S2. Abdomen: Soft, benign. Extremities: Edema present in both legs. Impression And Plan: 1. Acute kidney injury secondary to cardiorenal syndrome. Urinalysis showed proteinuria and hematuria. Renal ultrasound did not show obstructive uropathy. CPK is not elevated. There is no evidence of rhabdomyolysis. The patient although has acute on chronic kidney injury, which remains nonoliguric, and planning is to evaluate for possible secondary glomerulonephritis. The patient will have blood work to check ANCA, C3, C4. Jacques catheter was inserted to monitor urine output. 2. The patient has severe pulmonary hypertension, previous history of pulmonary emboli, bilateral leg edema, and chest x-ray confirms mild pulmonary edema. Patient has systolic dysfunction. Chest CT of chest was done to evaluate for possible pulmonary infiltrate. Patient will continue diuretics. 3. Patient will continue Bumex IV 3 mg twice a day. Monitor urine output, prognosis is guarded. The patient may need to start dialysis if renal function does not improve. 3. Hyperparathyroidism. Intact PTH is elevated to 467. Patient has vitamin D deficiency and calcitriol was started to control hypocalcemia. Monitor calcium and phosphorus level. 4. Hypertension. Monitor blood pressure. Adjust medication. ADRIANA/EUGENIO Voice ID: [id number] Report ID: [id number] CHAUNCEY
[2021-10-07] MEDS: INSULIN -REGULAR HUMAN 50 UNIT/0.5 ML ML SQ SCH ×4 (07:30→20:42)
--- NOTE | 2021-10-07 08:18 | EKG ---
Test Date: 2021-10-07 Test Time: 01:23:48 Customer Orders Clerk: RT MEASUREMENT RESULTS: Intervals: Rate: 78 HI: 118 QRSD: 114 QT: 424 QTc: 483 [place]: P: 69 HI: 118 QRS: -59 T: 54 INTERPRETIVE STATEMENTS: Sinus rhythm with occasional premature ventricular complexes Left axis deviation Low voltage QRS Inferior infarct, age undetermined Cannot rule out Anterior infarct, age undetermined Abnormal ECG Compared to ECG 08/07/2021 18:55:40 Ventricular premature complex(es) now present Myocardial infarct finding still present Electronically Signed On 10-07-21 08:18:08 CDT by Dale East
[2021-10-07] MEDS: CALCITROL 0.25 MCG CAP PO SCH (08:24)
[2021-10-07] MEDS: SPIRONOLACTONE 25 MG TABLET PO SCH (08:24)
[2021-10-07] MEDS: INSULIN GLARGINE 100 UNIT/ML SQ SCH ×2 (08:24→20:42)
[2021-10-07] MEDS: VITAMIN D 1000 UNIT TAB PO SCH (08:24)
[2021-10-07] MEDS: BUMETANIDE 1 MG/4 ML VIAL IV SCH (08:24)
[2021-10-07] MEDS: SEVELAMER CARBONATE 800 MG TABLET PO SCH ×3 (08:24→16:37)
[2021-10-07] MEDS ORDERED: NA CHLORIDE 0.9% 1,000 ML IV SCH (10:00)
--- NOTE | 2021-10-07 11:37 | RAD REPORT ---
EXAM DESCRIPTION: Emigdio Single View10/07/2021 11:18 am CLINICAL HISTORY: Shortness of breath COMPARISON: October 05 2021 FINDINGS: Mild reticulonodular opacities right upper lobe unchanged Remainder lungs appear clear Upper lobe vessels prominent indicative of pulmonary venous hypertension. Pacemaker leads in place. Heart is mildly to moderately enlarged
--- NOTE | 2021-10-07 11:58 | PN ---
Date of Progress Note: 10/07/2021 Subjective: The patient was admitted with acute kidney injury, nephrotic range of proteinuria, and chronic kidney disease, stage 3B. The patient found to have nephrotic range of proteinuria with hematuria, kidney function continued to decline. Physical Examination: Vital Signs: When I saw the patient; blood pressure 148/84, pulse of 80, afebrile. The patient had good urine output of 3300. Chest: Clear to auscultation. Heart S1, S2. Regular. Abdomen: Soft, nontender. Extremity: No edema. Neurological: Alert and oriented x3. No focal. No tremor. Laboratory Data: Urinalysis; +3 protein, 20 of RBC, PC ratio of 4. Renal ultrasound showing normal size kidney, obstructive. Reviewing the record for the patient, had a full serology workup before in July. At that time, serum protein electrophoresis within normal limit. Serology was not done. Current Medications: The patient on are heparin drip, Tylenol, Renvela 1600, insulin, Bumex, Zofran, spironolactone, calcitriol. Assessment And Plan: 1. Acute kidney injury on chronic kidney disease with the presence of nephrotic range proteinuria and hematuria and worsening kidney function to rule out any autoimmune disease/nephritis. I am going to go ahead and discontinue spironolactone, discontinue Bumex. I am going to start the patient on gentle hydration 50 mL of normal saline. We will give 1 L. I had long discussion with the patient regarding the disease and the needing to proceed with the kidney biopsy given the presentation of hematuria and proteinuria and history of pulmonary embolism before. The patient verbalized understanding. We will go ahead and proceed. Hold heparin and Coumadin for the time being. We will monitor INR for the next 3 days. We will hold heparin 4 hours before the procedure and 6 hours after and we will follow up. I do not see the urgency to initiate renal replacement therapy for the time being, could be over-diuresis component. For that reason, we will manage as above, but in spite of that to avoid any delayed on the discharge planning, I am going to go ahead and send for full hepatitis panel and we will schedule the patient for PermCath insertion for tomorrow. We will follow up the lab in the morning. If kidney function starts showing improvement, we will hold on the procedure and we will follow up closely. We will follow up with the biopsy. If kidney function continued to decline, I had long discussion with the patient that he may need to be initiated on renal replacement therapy. The patient verbalized understanding and agreed on that plan. 2. Hyperkalemia, has been resolved with diuresis, doing good. We will follow up. 3. Hypertension, controlled, optimal. Continue current treatment. The patient had pulmonary hypertension with the presence of worsening kidney function. Discontinue spironolactone, discontinue Bumex. We will monitor the patient closely. We will consider placing the patient on calcium channel minerva low dose. 4. Pulmonary embolism by primary. We will hold heparin before biopsy, hold Coumadin for the time being. 5. Secondary hyperparathyroidism. Continue calcitriol. Continue Renvela. Time spent examining the patient [id number], reviewing the data, placing order, discussing with by bedside, discussing with staff member including charge nurse and nursing and hospitalist 45 minutes. ARMANI Voice ID: [id number] Report ID: [id number] CHAUNCEY
--- NOTE | 2021-10-07 14:15 | ECHO ---
HEIGHT: 5 ft 10 in WEIGHT: 245 lb 0 oz DATE OF STUDY: 10/07/[address]: James Moncada 2-DIMENSIONAL: YES M.MODE: YES DOPPLER: YES COLOR FLOW: YES TDS: NO PORTABLE: YES DEFINITY: NO BUBBLE STUDY: NO DIAGNOSIS: CONGESTIVE HEART FAILURE CARDIAC HISTORY: CATHERIZATION: SURGERY: PROSTHETIC VALVE: PACEMAKER: MEASUREMENTS (cm) DIASTOLIC (NORMALS) SYSTOLIC (NORMALS) IVSd 1.5 (0.6-1.2) LA Diam 4.5 (1.9-4.0) LVEF 28% LVIDd 5.4 (3.5-5.7) LVIDs 4.7 (2.0-3.5) %FS 13% LVPWd 1.3 (0.6-1.2) Ao Diam 3.0 (2.0-3.7) 2 DIMENSIONAL ASSESSMENT: RIGHT ATRIUM: NORMAL LEFT ATRIUM: ENLARGED RIGHT VENTRICLE: NORMAL LEFT VENTRICLE: DILATED LEFT VENTRICLE TRICUSPID VALVE: SEVERE TRICUSPID REGURGITATION MITRAL VALVE: MILD MITRAL REGURGITATION PULMONIC VALVE: NORMAL AORTIC VALVE: MILD AORTIC INSUFFICIENCY PERICARDIAL EFFUSION: NONE AORTIC ROOT: NORMAL LEFT VENTRICULAR WALL MOTION: SEVERE GLOBAL HYPOKINESIS. DOPPLER/COLOR FLOW: SEE BELOW. COMMENTS: SEVERELY DEPRESSED LEFT VENTRICULAR EJECTION FRACTION 25-30%. SEVERE GLOBAL HYPOKINESIS. LEFT ATRIAL ENLARGEMENT WITH MILD MITRAL REGURGITATION, MILD AORTIC INSUFFICIENCY. SEVERE TRICUSPID REGURGITATION. SEVERE PULMONARY HYPERTENSION WITH RIGHT VENTRICULAR SYSTOLIC PRESSURE GREATER THAN 60mmHg. TECHNOLOGIST: LEIA BALLARD
[2021-10-07] MEDS ORDERED: REGADENOSON 0.4 MG/5 ML SYR IV ONE (15:00)
--- NOTE | 2021-10-07 16:58 | PN ---
Date of Progress Note: 10/07/2021 Subjective: Seen by bedside. Still with shortness of breath. Echo was done today. His ejection fr action is 25% to 30%, severe pulmonary hypertension. Review of Systems: Positive shortness of breath, orthopnea, lower extremity edema. No nausea, vomiting, diarrhea. No a bdominal pain. No dysuria, polyuria, or urinary urgency. No skin rash. All other systems reviewed and they are negative. Physical Examination: Vital Signs: Reviewed. Head and Neck: Pupils are equal, reactive to light. Intact eye movements. No JVD. No cervical lym phadenopathy. Neck is supple. Thyroid is not enlarged. Lungs: Crackles in both bases. No accessory muscle use or muscle retraction. Heart: Irregular. No extra sounds. Abdomen: Soft, nontender. Bowel sounds positive. No organomegaly. No masses or hernia. No rigidi ty or rebound. Extremities: No clubbing or cyanosis. Intact pulses. Skin: No rash. Neurologic: Alert, awake. No acute focal deficits appreciated. Investigations: Creatinine is 5.16. Assessment And Recommendations: 1.Acute on chronic systolic congestive heart failure exacerbation. His right ventricular systolic p ressure on echo is more than 75 mmHg. The patient needs aggressive fluid management and diuresis. I f this fails, then I recommend discussion about dialysis to be initiated with the patient. We will d iscuss this further with Nephrology. 2.Advanced kidney failure with significant fluid retention and acute on chronic systolic heart failu re. Continue IV diuretics and possible need for dialysis in the near future. 3.Elevated troponin with a very low ejection fraction. Obtain Lexiscan nuclear stress test tomorrow . SR/MODL Voice ID: [id number] Report ID: [id number]
--- NOTE | 2021-10-07 23:10 | P.PN ---
Date of Service: 10/06/21 Subjective Renal function continues to deteriorate. Patient has heart failure. Patient's ejection fraction is less than 35%. Patient also with severe pulmonary hypertension. Really not able to manage his symptoms very aggressively. Patient most likely with cardiorenal syndrome. He is probably progressing to end-stage renal disease. With aggressive treatment for his heart failure he probably would progress. At this time will discuss case with Cardiology and Nephrology and make a decision on how to proceed going forward. Physical Examination - Vital Signs reviewed - Physical Exam General: Alert, In no apparent distress, Oriented x3 Respiratory: Clear to auscultation bilaterally, Normal air movement Cardiovascular: No edema, Regular rate/rhythm, Normal S1 S2, No gallops, No rubs, No murmurs Gastrointestinal: Normal bowel sounds, No tenderness, No rebound, No guarding Musculoskeletal: No erythema, No tenderness, No warmth, Other (significant right shoulder pain with abduction past 45 degrees) Neurological: weakness Assessment And Plan - Assessment 1. 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 Uremia secondary to above 3. Microscopic Hematuira 4. 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 Severe Pulmonary Hypertension - secondary to prior Pulmonary Embolism? 6. Coronary Artery Disease 7. Insulin-Dependent Diabetes Mellitus 8. Right Shoulder Pain - Plan 1. patient with significant uremia. Worsening. Patient with generalized weakness. Patient states he has a hard time thinking clearly. Spoke with Nephrology and we will consider hemodialysis at this time. 2. Continue with strict blood pressure and blood sugar control 3. Patient may benefit from treatment for severe pulmonary hypertension. 4. Patient will be better treatment for congestive heart failure as well. cardiorenal syndrome will probably worsen both conditions. May be beneficial to start him on hemodialysis awakened correct volume status better. With aggressive diuresing patient will most likely to go into the end-stage renal disease. 5. Continue with pain control 6. GI/DVT prophylaxis Discharge Plan: Home Plan to discharge in: Greater than 2 days - Code Status/Comfort Care Code Status Assessed: Yes Code Status: Full Code
--- NOTE | 2021-10-07 23:13 | P.PN ---
Date of Service: 10/07/21 Subjective Cardiology plans to do a stress test in the a.m.. Nephrology plans: Started patient on hemodialysis. Permanent catheter placement. clinical statistics manager will work on dialysis placement. Physical Examination - Vital Signs reviewed - Physical Exam General: Alert, In no apparent distress, Oriented x3 Respiratory: Clear to auscultation bilaterally, Normal air movement Cardiovascular: No edema, Regular rate/rhythm, Normal S1 S2, No gallops, No rubs, No murmurs Gastrointestinal: Normal bowel sounds, No tenderness, No rebound, No guarding Musculoskeletal: No erythema, No tenderness, No warmth, Other (significant right shoulder pain with abduction past 45 degrees) Neurological: weakness Assessment And Plan - Assessment 1. 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 Uremia secondary to above 3. Microscopic Hematuira 4. 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 Severe Pulmonary Hypertension - secondary to prior Pulmonary Embolism? 6. Coronary Artery Disease 7. Insulin-Dependent Diabetes Mellitus 8. Right Shoulder Pain - Plan 1. Spoke with Nephrology and we will consider hemodialysis at this time. 2. Continue with strict blood pressure and blood sugar control 3. Lexiscan in a.m. 4. Patient will be better treatment for congestive heart failure as well. cardiorenal syndrome will probably worsen both conditions. May be beneficial to start him on hemodialysis awakened correct volume status better. With aggressive diuresing patient will most likely to go into the end-stage renal disease. 5. Continue with pain control 6. GI/DVT prophylaxis Discharge Plan: Home Plan to discharge in: Greater than 2 days - Code Status/Comfort Care Code Status Assessed: Yes Code Status: Full Code
[2021-10-08] MEDS: HYDROMORPHONE HCL 0.5 MG/0.5 ML INJ IV PRN ×3 (03:01→19:13)
[2021-10-08 06:03] LABS: Albumin 2.8 g/dL (3.4-5.0); Phosphorus 5.4 mg/dL (2.5-4.9); Potassium 3.6 mmol/L (3.5-5.1); Uric Acid 9.3 mg/dL (3.5-7.2)
[2021-10-08 06:05] LABS: Protime INR 1.54
[2021-10-08 07:00] LABS: Rheumatoid Factor NEG (NEG)
[2021-10-08] MEDS: INSULIN -REGULAR HUMAN 50 UNIT/0.5 ML ML SQ SCH ×4 (07:03→20:15)
[2021-10-08] MEDS: SEVELAMER CARBONATE 800 MG TABLET PO SCH ×3 (07:04→16:25)
[2021-10-08] MEDS: INSULIN GLARGINE 100 UNIT/ML SQ SCH ×2 (07:04→20:15)
[2021-10-08] MEDS ORDERED: FENTANYL CITR 100 MCG/2 ML ONE (07:28)
[2021-10-08] MEDS ORDERED: LIDOCAINE 2% MPF 5 ML VIAL ONE (07:28)
[2021-10-08] MEDS ORDERED: propofoL 200 MG/20 ML VIAL IV ONE (07:28)
[2021-10-08] MEDS ORDERED: ONDANSETRON 4 MG/2 ML VIAL ONE (07:28)
[2021-10-08] MEDS ORDERED: Phenylephrine HCl 10 MG/ML 1 ML VIAL ONE (07:38)
[2021-10-08] MEDS ORDERED: NS 0.9% VIAL 0 ML ONE (07:39)
[2021-10-08] MEDS ORDERED: EPHEDRINE SULF 50 MG/ML VIAL ONE (07:39)
[2021-10-08] MEDS ORDERED: ETOMIDATE 20 MG/10 ML VIAL IV ONE (07:47)
--- NOTE | 2021-10-08 07:52 | EKG ---
Test Date: 2021-10-07 Test Time: 00:27:17 Corn Press Operator: RT-O MEASUREMENT RESULTS: Intervals: Rate: 135 [place]: QRSD: 94 QT: 378 QTc: 567 [place]: P: -15 TX: QRS: -17 T: 48 INTERPRETIVE STATEMENTS: Atrial flutter with 2:1 AV conduction Low voltage QRS Inferior infarct, age undetermined Anterolateral infarct, age undetermined Abnormal ECG Compared to ECG 08/07/2021 18:55:40 Sinus rhythm no longer present Left-axis deviation no longer present Myocardial infarct finding still present Electronically Signed On 10-08-21 07:48:36 CDT by Dale East
[2021-10-08 08:12] LABS: Protime INR 1.58
[2021-10-08] MEDS: VITAMIN D 1000 UNIT TAB PO SCH (09:00)
[2021-10-08] MEDS: CALCITROL 0.25 MCG CAP PO SCH (09:00)
[2021-10-08] MEDS: AMLODIPINE 5 MG TAB PO SCH (09:00)
--- NOTE | 2021-10-08 09:44 | P.CNS ---
Date of Consult: 10/08/21 Reason for consult: Needs hemodialysis History of present illness: Patient is a 45-year-old gentleman with multiple medical problems presented to the emergency room with malaise, fatigue and weakness. Work-up has revealed acute renal failure with the requirement of hemodialysis. However, patient is anticoagulated for history of pulmonary embolism. Patient is currently on a heparin drip. Patient was on Coumadin. Discussed the details of this case with Dr. Guzman. Patient does not need urgent dialysis as his electrolytes are within normal limits. But, he will need long-term hemodialysis. Patient denies any fever or chills, cough or any other signs and symptoms of infection. Review of systems: Otherwise unremarkable Past medical history: Significant cardiac disease, chronic renal disease with acute onset of renal failure, heart failure Past surgical history: Pacemaker, defibrillator Allergies: None Social history: Denies smoking or drinking alcohol Family history: Noncontributory Vital signs: Stable, afebrile Physical exam: Awake alert oriented x3 Head and neck exam: No masses Chest: Clear Heart: S1-S2 Abdomen: Soft Extremity: Neurovascular intact, nontender Neuro: Nonfocal Diagnostic data: Reviewed, significantly elevated BUN and creatinine and potassium is within normal limits. PT is 1.58, PTT is 86 Assessment: Acute renal failure in a patient with pulmonary embolus and on anticoagulation. Plan/recommendation: We will schedule the patient for a tunneled dialysis catheter placement tomorrow morning. Patient understands risk, benefits alternatives and agrees to procedure. We will stop the heparin drip at 2:30 in the morning. Patient is tentatively scheduled for catheter placement at 7:30 in the morning. CC:
[2021-10-08] MEDS ORDERED: CEFAZOLIN 1 GM in NA CHLORIDE 0.9% 50 ML IVPB SCH (10:00)
[2021-10-08] MEDS ORDERED: NA CHLORIDE 0.9% 1,000 ML IV SCH (12:00)
--- NOTE | 2021-10-08 14:30 | RAD REPORT ---
EXAM DESCRIPTION: NM - Rest Stress Cardiac Imaging - 10/08/2021 2:20 pm CLINICAL HISTORY: Chest pain COMPARISON: None. TECHNIQUE: The patient was administered 9.8 mCi of Tc 99m Sestamibi prior to resting SPECT imaging o f the heart. The patient was then administered 30.9 mCi of Tc 99m Sestamibi following exercise or pha rmacologic stress. Multiplanar SPECT images were reviewed. FINDINGS: The end diastolic volume is 254 ml, the end systolic volume is 210 ml, and the ejection fr action is 17 %. Normal levels of activity are seen in the muscular septum. No scarring or ischemic changes of the mus cular septum seen. Activity along the anterior wall at the base shows no change between rest and stre ss imaging. Patient has fixed absent or markedly diminished activity in the apex and midportion of th e anterior wall. Little identifiable activity seen in the lateral wall and inferior wall. IMPRESSION: No stress-induced ischemic changes identifiable. Large fixed areas of scarring involving the inferior wall, lateral wall and most of the anterior wall . Activity of the muscular septum is normal with no rest/stress differential. End-diastolic volume was measured as 254 mL. Calculated EF was 17%.
--- NOTE | 2021-10-08 17:29 | PN ---
Date of Progress Note: 10/08/2021 Subjective: Patient was admitted with acute kidney injury under advanced chronic kidney disease. Patient had hematuria with nephrotic range of proteinuria. Patient was started on aggressive diuresis. Kidney function get worse over the night. We discontinued diuresis. Started the patient on gentle hydration, kidney function had plateaued. Physical Examination: Vital Signs: Blood pressure 138/92, pulse of 85, afebrile. Patient had good urine output of 3400, negative of 900. Chest: Clear to auscultation. Heart: S1, S2. Systolic murmur. Abdomen: Soft, nontender. Extremity: Venous stasis change, both lower extremity. No edema. Neurological: Alert and oriented x3, nonfocal. Laboratory Data: WBC 12.7, H and H 12.8/38.7, sodium 132, potassium 3.6, bicarb 22, BUN 130, creatinine 4.6, GFR of 15. Uric acid 9.3, calcium 9, phosphorus 5.4, albumin 2.8. Corrected calcium 9.8. Chest x-ray; cardiomegaly with congestion, bilateral, not worse than the presentation. Current Medications: The patient on it includes cefazolin, amlodipine 5 mg, Renvela, Zofran, insulin, calcitriol, cholecalciferol. Assessment And Plan: 1. Acute kidney injury, questionable nephritis with nephrotic range of proteinuria and hematuria with questionable over-diuresed. I am going to give another liter of normal saline. We will follow up the patient closely. If kidney function improve, maybe we can back up on the dialysis. If kidney function did not improve, mostly the improvement today, it was just dilutional, we will follow up. Communicated with the nurses about the plan and surgeon. 2. Hypertension, controlled, optimal. Continue current treatment. Keep holding the diuresis and spironolactone. Continue calcium channel minerva. 3. Pulmonary hypertension. Continue current treatment with Norvasc. 4. Pulmonary renal syndrome with interstitial infiltration, hematuria, acute kidney injury and nephrotic range of proteinuria. We are waiting for the serology. Plan for biopsy on Wednesday. Time spent examining the patient [id number], reviewing the data, placing order, discussing with by bedside, discussing with staff member including charge nurse and nursing and hospitalist 45 minutes. ARMANI Voice ID: [id number] Report ID: [id number]
[2021-10-08] MEDS: HEPARIN/D5W 25,000 UNIT/500 ML BAG IV SCH (20:22)
[2021-10-08 23:11] LABS: Protime INR 1.72
--- NOTE | 2021-10-09 00:07 | P.PN ---
Date of Service: 10/08/21 Subjective patient is clinically doing much better. Arranging for hemodialysis. Stress test pending. Physical Examination - Vital Signs reviewed - Physical Exam General: Alert, In no apparent distress, Oriented x3 Respiratory: Clear to auscultation bilaterally, Normal air movement Cardiovascular: No edema, Regular rate/rhythm, Normal S1 S2, No gallops, No rubs, No murmurs Gastrointestinal: Normal bowel sounds, No tenderness, No rebound, No guarding Musculoskeletal: No erythema, No tenderness, No warmth, Other (significant right shoulder pain with abduction past 45 degrees) Neurological: weakness Assessment And Plan - Assessment 1. 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 Uremia secondary to above 3. Microscopic Hematuira 4. 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 Severe Pulmonary Hypertension - secondary to prior Pulmonary Embolism? 6. Coronary Artery Disease 7. Insulin-Dependent Diabetes Mellitus 8. Right Shoulder Pain - Plan 1. Spoke with Nephrology and we will consider hemodialysis at this time. 2. Continue with strict blood pressure and blood sugar control 3. Lexiscan Pending 4. Patient will be better treatment for congestive heart failure as well. cardiorenal syndrome will probably worsen both conditions. May be beneficial to start him on hemodialysis awakened correct volume status better. With aggressive diuresing patient will most likely to go into the end-stage renal disease. 5. Continue with pain control 6. GI/DVT prophylaxis Discharge Plan: Home Plan to discharge in: Greater than 2 days - Code Status/Comfort Care Code Status Assessed: Yes Code Status: Full Code
[2021-10-09 06:26] LABS: Albumin 2.6 g/dL (3.4-5.0); Phosphorus 5.1 mg/dL (2.5-4.9); Potassium 3.5 mmol/L (3.5-5.1)
[2021-10-09 06:27] LABS: Absolute Lymphocytes (CBC) 0.9 K/uL (0.7-4.9); Hematocrit 38.3 % (39.6-49.0); Lymphocytes % 8.1 % (15.3-44.8); MCV 93.4 fL (80-100); MPV 8.8 fL (7.6-11.3)
[2021-10-09 06:46] LABS: Protime INR 1.6
[2021-10-09] MEDS ORDERED: NS 0.9% VIAL 10 ML ONE ×2 (07:05→07:17)
[2021-10-09] MEDS ORDERED: NA CHLORIDE 0.9% 100 ML ONE (07:06)
--- NOTE | 2021-10-09 07:07 | TREADPHA ---
DX: ELEVATED TROPONIN Date of Study: 10/08/2021 Ht: 5' 10 " Wt: 245 lb 0 oz Consulting Physician: TIM MEDICATIONS: NORVASC, ROCALTROL, HEPARIN, DILAUDID, NOVOLIN-R HISTORY: 45 YEAR OLD MALE WITH COMPLIANTS OF CHEST PAIN. 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 PHYSICIAL EXAMINATION: RESTING B.P.: 124/88 RESTING H.R.: 86 RESTING EKG: SINUS RHYTHM, LOW VOTAGE PROTOCOL: PHARMACOLOGIC EXERCISE TIME: 3:30 B.P. AT [place]AK STRESS: 118/83 IMPRESSION: LEXISCAN INJECTED, FOLLOWED BY CARDIOLITE PER PROTOCOL. SEE NUCLEAR MEDICINE REPORT. NO SUPRAVENTRICULAR TACHYCARDIA, VENTRICULAR TACHYCARDIA, PREMATURE ATRIAL COMPLEXES. PATIENT HAD FREQUENT PREMATURE VENTRICULAR COMPLEXES THROUGHOUT. PATIENT HAD SHORTNESS OF BREATH WITHOUT CHEST PAIN.
[2021-10-09] MEDS: HEPARIN 5000 UNIT/ML 1 ML VIAL ONE ×4 (07:10→09:41)
[2021-10-09] MEDS: LIDOCAINE 1% 20 ML MDV ONE ×2 (07:14→09:09)
[2021-10-09] MEDS ORDERED: NA CHLORIDE 0.9% 500 ML ONE (07:15)
[2021-10-09] MEDS ORDERED: propofoL 200 MG/20 ML VIAL IV ONE (07:17)
[2021-10-09] MEDS ORDERED: LIDOCAINE 2% MPF 5 ML VIAL ONE (07:17)
[2021-10-09] MEDS ORDERED: FENTANYL CITR 100 MCG/2 ML ONE (07:17)
[2021-10-09] MEDS ORDERED: Phenylephrine HCl 10 MG/ML 1 ML VIAL ONE (07:17)
[2021-10-09] MEDS ORDERED: ETOMIDATE 20 MG/10 ML VIAL IV ONE (07:17)
[2021-10-09] MEDS ORDERED: HEPARIN 5000 UNIT/ML 1 ML VIAL ONE (07:22)
[2021-10-09] MEDS: INSULIN -REGULAR HUMAN 50 UNIT/0.5 ML ML SQ SCH ×4 (07:30→21:00)
[2021-10-09] MEDS ORDERED: CEFAZOLIN SODIUM 1 GM/VIAL ONE (07:35)
[2021-10-09] MEDS: SEVELAMER CARBONATE 800 MG TABLET PO SCH ×3 (07:50→17:00)
[2021-10-09] MEDS: INSULIN GLARGINE 100 UNIT/ML SQ SCH ×2 (07:50→21:00)
[2021-10-09] MEDS: VITAMIN D 1000 UNIT TAB PO SCH (07:51)
[2021-10-09] MEDS: AMLODIPINE 5 MG TAB PO SCH (07:51)
[2021-10-09] MEDS: CALCITROL 0.25 MCG CAP PO SCH (07:51)
--- NOTE | 2021-10-09 09:45 | P.OP ---
Date of Service: 10/09/21 Preop diagnosis: Acute renal failure Postop diagnosis: Same Procedure performed: Placement of right IJ Tesio catheter, interpretation of intraoperative fluoroscopy Surgeon: Ernie Shah MD Airport Ramp Agent: None Estimated blood loss: Minimal Specimen: None Findings: Normal anatomy Anesthesia: General Complications: None Drains: None Fluids and blood products: Nonapplicable Disposition: Recovery room Operative note: Patient brought to the OR and placed in the supine position. General anesthesia begun. Patient prepped and draped in the usual sterile fashion. Lidocaine 1% infiltrated locally. 18-gauge needle used to access the right IJ vein. Guidewire passed and position confirmed with fluoroscopy. Counterincision made on the right anterior chest. Tunneling device used to tunnel the catheter between the 2 wounds. Seldinger technique used. Right IJ vein dilated. Tip of the catheter placed under fluoroscopy in the right atrial and SVC junction. Catheter flushed with heparin and packed with heparin with good blood flow. 3-0 chromic used approximate subcutaneous tissue and close skin. 3-0 nylon used to secure the tube to the chest wall. Sterile dressing applied. Patient awakened and taken to recovery room in good general condition. Chest x-ray has been ordered. CC:
--- NOTE | 2021-10-09 10:01 | RAD REPORT ---
EXAM DESCRIPTION: HALIMAJustice Single View10/09/2021 9:56 am CLINICAL HISTORY: Device placement/central venous catheter placement IMPRESSION: Central venous catheter with its tip in the superior vena cava No pneumothorax
--- NOTE | 2021-10-09 10:02 | RAD REPORT ---
EXAM DESCRIPTION: RAD - Fluoroscopy <1 Hour - 10/09/2021 9:46 am CLINICAL HISTORY: Device placement central venous catheter placement FINDINGS: A central venous catheter was placed into the superior vena cava. 4 fluoroscopic spot imag es are submitted. Fluoroscopy time .2 minutes The examination was performed by Dr. Shah
[2021-10-09] MEDS: HYDROMORPHONE HCL 0.5 MG/0.5 ML INJ IV PRN ×3 (12:23→21:50)
--- NOTE | 2021-10-09 19:32 | PN ---
Date of Progress Note: 10/09/2021 Subjective: The patient was admitted with acute kidney injury, hematuria, nephrotic range of proteinuria. Kidney function deteriorated. The patient had a PermCath inserted today by Dr. Shah, waiting for dialysis. Physical Examination: Vital Signs: When I saw the patient, blood pressure 155/65, pulse of 71. Chest: Clear to auscultation. Heart: S1, S2. Regular. Abdomen: Soft, nontender. Extremities: No edema. Neurologic: Alert, nonfocal. Laboratory Data: WBC 10.8, H and H 12.7/38.3. Sodium 138, potassium 3.5, bicarb 26, BUN 122, creatinine 4.4, calcium 9.1, phos 5.1. Current Medications: The patient on include, 1. Amlodipine. 2. Renvela. 3. Insulin. 4. Calcitriol. Assessment And Plan: 1. Acute kidney injury on advanced chronic kidney disease, nephrotic range of proteinuria with hematuria, possible nephritis. Plan for biopsy tomorrow. Hold heparin 4 hour before, 6 hours after. Keep holding Coumadin and we will follow up. We will do dialysis today and we will monitor. 2. Hypertension, controlled, optimal. Continue current treatment. 3. Nephrotic range of proteinuria, possible secondary to diabetes with the presence of hematuria, to rule out any nephritis. We will follow up a kidney biopsy. 4. Diabetes as by primary. 5. Coronary artery disease with congestive heart failure as by primary. Time spent examining the patient [id number], reviewing the data, placing order, discussing with by bedside, discussing with staff member including charge nurse and nursing and hospitalist 45 minutes. ARMANI Voice ID: [id number] Report ID: [id number] CHAUNCEY
[2021-10-09] MEDS: HEPARIN/D5W 25,000 UNIT/500 ML BAG IV SCH (20:54)
[2021-10-10] MEDS: HYDROMORPHONE HCL 0.5 MG/0.5 ML INJ IV PRN ×2 (02:00→06:14)
[2021-10-10 04:45] LABS: Protime INR 1.6
[2021-10-10 04:56] LABS: Albumin 2.5 g/dL (3.4-5.0); Phosphorus 4.2 mg/dL (2.5-4.9); Potassium 3.3 mmol/L (3.5-5.1)
[2021-10-10] MEDS: INSULIN -REGULAR HUMAN 50 UNIT/0.5 ML ML SQ SCH ×4 (07:30→20:23)
[2021-10-10] MEDS: SEVELAMER CARBONATE 800 MG TABLET PO SCH ×3 (08:00→17:00)
--- NOTE | 2021-10-10 08:07 | P.PN ---
Date of Service: 10/09/21 Subjective Patient status post hemodialysis access catheter. Clinically doing well. To restart hemodialysis today. Physical Examination - Vital Signs reviewed - Physical Exam General: Alert, In no apparent distress, Oriented x3 Respiratory: Clear to auscultation bilaterally, Normal air movement Cardiovascular: No edema, Regular rate/rhythm, Normal S1 S2, No gallops, No rubs, No murmurs Gastrointestinal: Normal bowel sounds, No tenderness, No rebound, No guarding Musculoskeletal: No erythema, No tenderness, No warmth, Other (significant right shoulder pain with abduction past 45 degrees) Neurological: weakness Assessment And Plan - Assessment 1. 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 Uremia secondary to above 3. Microscopic Hematuira 4. 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 Severe Pulmonary Hypertension - secondary to prior Pulmonary Embolism? 6. Coronary Artery Disease 7. Insulin-Dependent Diabetes Mellitus 8. Right Shoulder Pain - Plan 1. Patient status post Tesio catheter and to start hemodialysis today 2. Continue with strict blood pressure and blood sugar control 3. Stress test with no reversible ischemia; negative stress test 4. Continue with cardiac meds 4 cardiomyopathy 5. Continue with pain control 6. GI/DVT prophylaxis Discharge Plan: Home Plan to discharge in: Greater than 2 days - Code Status/Comfort Care Code Status Assessed: Yes Code Status: Full Code
[2021-10-10] MEDS: INSULIN GLARGINE 100 UNIT/ML SQ SCH ×2 (09:00→20:23)
[2021-10-10] MEDS: AMLODIPINE 5 MG TAB PO SCH (09:00)
[2021-10-10] MEDS: VITAMIN D 1000 UNIT TAB PO SCH (09:00)
[2021-10-10] MEDS: CALCITROL 0.25 MCG CAP PO SCH (09:00)
[2021-10-10] MEDS ORDERED: METOPROLOL TARTRATE 5 MG/5 ML INJ IV STA ×2 (09:27→15:35)
[2021-10-10] MEDS ORDERED: NA CHLORIDE 0.9% 250 ML IV ONE (09:28)
[2021-10-10] MEDS ORDERED: HYDROMORPHONE HCL 0.5 MG/0.5 ML INJ IV PRN (09:28)
[2021-10-10] MEDS ORDERED: METOPROLOL TAR 25 MG TAB PO ONE (09:35)
[2021-10-10 09:57] LABS: Absolute Lymphocytes (CBC) 0.9 K/uL (0.7-4.9); Hematocrit 40.9 % (39.6-49.0); Lymphocytes % 8.1 % (15.3-44.8); MCV 95.6 fL (80-100); MPV 8.7 fL (7.6-11.3); RBC Red Blood Cell Count 4.28 M/uL (4.33-5.43)
[2021-10-10] MEDS: HYDROMORPHONE HCL 1 MG/ML INJ IV PRN ×3 (10:40→19:13)
[2021-10-10 12:31] LABS: Protime INR 1.57
--- NOTE | 2021-10-10 13:20 | PN ---
Date of Progress Note: 10/06/2021 Chief Complaint: Acute kidney injury. History Of Present Illness: The patient is a 45-year-old male with multiple medical problems. He keller s history of chronic systolic congestive heart failure, proteinuria, chronic kidney disease stage 4, diabetes mellitus type 2, history of CVA, coronary artery disease with pacemaker and defibrillator, h istory of pulmonary emboli. The patient presented to the hospital because of malaise and generalized weakness. He was complaining of lower extremity edema for last several days. On arrival to the hospital, he was found to have elevated BUN and creatinine. Creatinine level was u p to 5.2. Chest x-ray showed mild pulmonary edema. Review of Systems: Patient denies fever or chills. Denies nausea, vomiting, or abdominal pain, dysuria, hematuria. Physical Examination: General: Not in acute distress. Lungs: Diminished breath sounds. Few rhonchi. Heart: S1, S2. Abdomen: Soft, benign. Extremities: Edema present in both legs. Impression And Plan: 1.Acute kidney injury secondary to cardiorenal syndrome. Urinalysis showed proteinuria and hematuri a. Renal ultrasound did not show obstructive uropathy. CPK is not elevated. There is no evidence o f rhabdomyolysis. The patient although has acute on chronic kidney injury, which remains nonoliguric , and planning is to evaluate for possible secondary glomerulonephritis. The patient will have blood work to check ANCA, C3, C4. Jacques catheter was inserted to monitor urine output. Patient has mild metabolic acidosis. So plan is to monitor and treat according to lab results. 2.The patient has severe pulmonary hypertension and left-sided heart failure, previous history of pu lmonary emboli, bilateral leg edema, and chest x-ray confirms mild pulmonary edema. Patient has syst olic dysfunction. Chest CT, noncontrast, was done to evaluate for possible pulmonary infiltrate. Marcello amor will continue diuretics for hyperkalemia. Patient was started on Veltassa and patient will con tinue Bumex IV 3 mg twice a day. Monitor urine output and renal panel. Overall prognosis is guarded . The patient may need to start dialysis if renal function does not improve. 3.Hyperparathyroidism. Intact PTH is elevated up to 457. Patient has vitamin D deficiency and calc itriol was started to control hypocalcemia. Monitor calcium and phosphorus level. 4.Hypertension. Monitor blood pressure. Adjust medication. EB/MODL Voice ID: [id number] Report ID: [id number]
--- NOTE | 2021-10-10 16:10 | P.PN ---
Subjective Date of Service: 10/10/21 Chief Complaint: Fatigue Subjective: No new changes, Other (Received HD today.) Physical Examination - Vital Signs Temperature: 98.4 F Blood Pressure: 121/82 Pulse: 84 Respirations: 18 Pulse Ox (%): 93 - Physical Exam General: Alert, In no apparent distress HEENT: Atraumatic, Normocephalic Neck: Supple, JVD not distended Respiratory: Other (Symmetric chest expansion) Cardiovascular: No rubs, No murmurs Gastrointestinal: Soft and benign, No rebound Musculoskeletal: No clubbing Integumentary: No warmth Neurological: Normal speech, Normal tone Urinary: Other (No bladder distention) External genitalia: Deferred Rectal: Deferred - Studies Medications List Reviewed: Yes Assessment And Plan - Plan 1. Acute kidney injury on advanced chronic kidney disease, nephrotic range of proteinuria with hematuria. Kidney biopsy for today rescheduled for Wednesday next week. Hold heparin 4 hour before, 6 hours after. Keep holding Coumadin and we will follow up. HD received today. 2. Hypertension, controlled. Cont current BP med regimen. 3. Nephrotic range of proteinuria, possibly secondary to diabetes with the presence of hematuria, to rule out nephritis. Kidney biopsy pending. 4. DM2. Mngt per primary team. 5. Coronary artery disease with congestive heart failure. Per primary team.
[2021-10-10] MEDS: METOPROLOL TAR 25 MG TAB PO SCH (17:09)
[2021-10-11] MEDS: HYDROMORPHONE HCL 1 MG/ML INJ IV PRN ×6 (00:07→22:51)
[2021-10-11 04:47] LABS: Absolute Lymphocytes (CBC) 0.7 K/uL (0.7-4.9); Hematocrit 38.7 % (39.6-49.0); Lymphocytes % 6.7 % (15.3-44.8); MCV 96.1 fL (80-100); MPV 8.8 fL (7.6-11.3); Protime INR 1.62; RBC Red Blood Cell Count 4.03 M/uL (4.33-5.43)
[2021-10-11 05:02] LABS: Albumin 2.6 g/dL (3.4-5.0); Magnesium 2.1 mg/dL (1.8-2.4); Phosphorus 3.9 mg/dL (2.5-4.9); Potassium 3.6 mmol/L (3.5-5.1)
[2021-10-11] MEDS: METOPROLOL TAR 25 MG TAB PO SCH ×2 (05:54→17:52)
[2021-10-11] MEDS: INSULIN -REGULAR HUMAN 50 UNIT/0.5 ML ML SQ SCH ×4 (07:30→21:00)
[2021-10-11] MEDS: VITAMIN D 1000 UNIT TAB PO SCH (08:37)
[2021-10-11] MEDS: CALCITROL 0.25 MCG CAP PO SCH (08:38)
[2021-10-11] MEDS: INSULIN GLARGINE 100 UNIT/ML SQ SCH ×2 (08:39→21:00)
[2021-10-11] MEDS: SEVELAMER CARBONATE 800 MG TABLET PO SCH ×3 (08:53→17:52)
[2021-10-11] MEDS: AMLODIPINE 5 MG TAB PO SCH (09:00)
--- NOTE | 2021-10-11 14:42 | P.PN ---
Subjective Date of Service: 10/11/21 Chief Complaint: Fatigue Subjective Pt with CKD baselince Cr ~3.5 , had Shyann , started on HD on 10/09 today no overnight events tolerated HD yesterday will monitor renal function for now Physical exam General: AAOx3, NAD, obese HEENT PERRLA, moist mucose membrane neck: supple, no elevated JVD CHEST; CTAB, no wheezes or rales HEART : RRR. Normal S1,2 no murmur or rub Abd: soft, Nt Ext: trace edema Skin : No rash A/P #Acute kidney injury on advanced chronic kidney disease with nephrotic range of proteinuria with hematuria. baseline Cr 3.5 Kidney biopsy for today rescheduled for Wednesday next week. Hold heparin 4 hour before, 6 hours after. Keep holding Coumadin and we will follow up. started on HD on 10/09 will hold on HD fotr now renal diet renal dose medication #Hypertension, controlled. Cont current BP med regimen. #Nephrotic range of proteinuria, possibly secondary to diabetes with the presence of hematuria, to rule out nephritis. Kidney biopsy pending. #DM2. Mngt per primary team. #Coronary artery disease with congestive heart failure. Per primary team. Total time spent 45 minutes including documentation, reviewing labs , placing orders and discussing with medical team Physical Examination - Vital Signs Temperature: 97.8 F Blood Pressure: 132/89 Pulse: 75 Respirations: 14 Pulse Ox (%): 95 - Studies Medications List Reviewed: Yes
[2021-10-11 20:31] LABS: HIV AG/AB 4TH GEN Non-reactive (Non-reactive)
--- NOTE | 2021-10-11 20:41 | P.PN ---
Date of Service: 10/10/21 Subjective Patient states he is not feeling well. He is tachycardic. Will start him on a beta-minerva for the tachyarrhythmia. Continue monitoring hemodynamically. Date of hemodialysis today. Physical Examination - Vital Signs reviewed - Physical Exam General: Alert, In no apparent distress, Oriented x3 Respiratory: Clear to auscultation bilaterally, Normal air movement Cardiovascular: No edema, Regular rate/rhythm, Normal S1 S2, No gallops, No rubs, No murmurs Gastrointestinal: Normal bowel sounds, No tenderness, No rebound, No guarding Musculoskeletal: No erythema, No tenderness, No warmth, Other (significant right shoulder pain with abduction past 45 degrees) Neurological: weakness Assessment And Plan - Assessment 1. 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 Uremia secondary to above 3. Microscopic Hematuira 4. 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 Severe Pulmonary Hypertension - secondary to prior Pulmonary Embolism? 6. Coronary Artery Disease 7. Insulin-Dependent Diabetes Mellitus 8. Right Shoulder Pain 9. Tachyarrhythmia - Plan 1. Patient will continue with hemodialysis today 2. Continue with strict blood pressure and blood sugar control 3. Stress test with no reversible ischemia; negative stress test 4. Continue with cardiac meds for cardiomyopathy 5. Continue with pain control 6. Continue with beta-minerva therapy 7. GI/DVT prophylaxis Discharge Plan: Home Plan to discharge in: Greater than 2 days - Code Status/Comfort Care Code Status Assessed: Yes Code Status: Full Code
--- NOTE | 2021-10-11 20:42 | P.PN ---
Date of Service: 10/11/21 Subjective Patient is clinically feeling much better. Continue with hemodialysis. Heart rate has improved as well. Symptoms are improving. Physical Examination - Vital Signs reviewed - Physical Exam General: Alert, In no apparent distress, Oriented x3 Respiratory: Clear to auscultation bilaterally, Normal air movement Cardiovascular: No edema, Regular rate/rhythm, Normal S1 S2, No gallops, No rubs, No murmurs Gastrointestinal: Normal bowel sounds, No tenderness, No rebound, No guarding Musculoskeletal: No erythema, No tenderness, No warmth, Other (significant right shoulder pain with abduction past 45 degrees) Neurological: weakness Assessment And Plan - Assessment 1. 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 Uremia secondary to above 3. Microscopic Hematuira 4. 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 Severe Pulmonary Hypertension - secondary to prior Pulmonary Embolism? 6. Coronary Artery Disease 7. Insulin-Dependent Diabetes Mellitus 8. Right Shoulder Pain 9. Tachyarrhythmia - Plan 1. Patient will continue with hemodialysis today 2. Continue with strict blood pressure and blood sugar control 3. Stress test with no reversible ischemia; negative stress test 4. Continue with cardiac meds for cardiomyopathy 5. Continue with pain control 6. Continue with beta-minerva therapy 7. GI/DVT prophylaxis Discharge Plan: Home Plan to discharge in: Greater than 2 days - Code Status/Comfort Care Code Status Assessed: Yes Code Status: Full Code
[2021-10-12 01:05] VITALS: BMI 33.2
[2021-10-12] MEDS: HYDROMORPHONE HCL 1 MG/ML INJ IV PRN ×5 (04:15→21:00)
[2021-10-12] MEDS: METOPROLOL TAR 25 MG TAB PO SCH ×2 (05:39→17:50)
[2021-10-12 06:30] LABS: Absolute Lymphocytes (CBC) 0.9 K/uL (0.7-4.9); Hematocrit 42.9 % (39.6-49.0); Lymphocytes % 7.2 % (15.3-44.8); MCV 95.8 fL (80-100); RBC Red Blood Cell Count 4.48 M/uL (4.33-5.43)
[2021-10-12 06:46] LABS: Protime INR 1.68
[2021-10-12 07:01] LABS: Phosphorus 4.2 mg/dL (2.5-4.9)
[2021-10-12] MEDS: INSULIN -REGULAR HUMAN 50 UNIT/0.5 ML ML SQ SCH ×4 (07:30→21:00)
[2021-10-12] MEDS: SEVELAMER CARBONATE 800 MG TABLET PO SCH ×3 (08:17→16:53)
[2021-10-12] MEDS: VITAMIN D 1000 UNIT TAB PO SCH (08:17)
[2021-10-12] MEDS: AMLODIPINE 5 MG TAB PO SCH (08:18)
[2021-10-12] MEDS: CALCITROL 0.25 MCG CAP PO SCH (08:18)
[2021-10-12] MEDS: INSULIN GLARGINE 100 UNIT/ML SQ SCH ×2 (08:22→21:00)
--- NOTE | 2021-10-12 14:05 | P.PN ---
Subjective Date of Service: 10/12/21 Chief Complaint: Fatigue Subjective Pt with CKD baselince Cr ~3.5 , had Shyann , started on HD on 10/09 today no overnight events cr up to 3.5 further dialysis as per CMP results tomorrow Physical exam General: AAOx3, NAD, obese HEENT PERRLA, moist mucose membrane neck: supple, no elevated JVD CHEST; CTAB, no wheezes or rales HEART : RRR. Normal S1,2 no murmur or rub Abd: soft, Nt Ext: trace edema Skin : No rash A/P #Acute kidney injury on advanced chronic kidney disease with nephrotic range of proteinuria with hematuria. baseline Cr 3.5 Kidney biopsy for today rescheduled for Wednesday next week. Hold heparin 4 hour before, 6 hours after. Keep holding Coumadin and we will follow up. started on HD on 10/09 renal diet renal dose medication further dialysis as per CMP results tomorrow #Hypertension, controlled. Cont current BP med regimen. #Nephrotic range of proteinuria, possibly secondary to diabetes with the presence of hematuria, to rule out nephritis. Kidney biopsy pending. #DM2. Mngt per primary team. #Coronary artery disease with congestive heart failure. Per primary team. Total time spent 45 minutes including documentation, reviewing labs , placing orders and discussing with medical team Physical Examination - Vital Signs Temperature: 97.2 F Blood Pressure: 130/85 Pulse: 57 Respirations: 18 Pulse Ox (%): 96 - Studies Medications List Reviewed: Yes
[2021-10-13] MEDS: HYDROMORPHONE HCL 1 MG/ML INJ IV PRN ×2 (00:50→06:24)
[2021-10-13] MEDS: METOPROLOL TAR 25 MG TAB PO SCH ×2 (06:24→17:29)
[2021-10-13 07:00] LABS: Albumin 2.9 g/dL (3.4-5.0); Phosphorus 4.5 mg/dL (2.5-4.9); Potassium 3.8 mmol/L (3.5-5.1)
[2021-10-13] MEDS: INSULIN -REGULAR HUMAN 50 UNIT/0.5 ML ML SQ SCH ×4 (07:30→20:59)
[2021-10-13] MEDS: SEVELAMER CARBONATE 800 MG TABLET PO SCH ×3 (08:00→17:00)
--- NOTE | 2021-10-13 08:49 | P.PN ---
Date of Service: 10/12/21 Subjective Pt doing well. Wanting to go home. Needing to arrange for outpt HD. Renal biopsy possibly tomorrow if INR is therapeutic Physical Examination - Vital Signs reviewed - Physical Exam General: Alert, In no apparent distress, Oriented x3 Respiratory: Clear to auscultation bilaterally, Normal air movement Cardiovascular: No edema, Regular rate/rhythm, Normal S1 S2, No gallops, No rubs, No murmurs Gastrointestinal: Normal bowel sounds, No tenderness, No rebound, No guarding Musculoskeletal: No erythema, No tenderness, No warmth, Other (significant right shoulder pain with abduction past 45 degrees) Neurological: weakness Assessment And Plan - Assessment 1. 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 Uremia secondary to above 3. Microscopic Hematuira 4. 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 Severe Pulmonary Hypertension - secondary to prior Pulmonary Embolism? 6. Coronary Artery Disease 7. Insulin-Dependent Diabetes Mellitus 8. Right Shoulder Pain 9. Tachyarrhythmia - Plan 1. Patient will continue with hemodialysis today; possible biopsy on Wednesday 2. Continue with strict blood pressure and blood sugar control 3. Stress test with no reversible ischemia; negative stress test 4. Continue with cardiac meds for cardiomyopathy 5. Continue with pain control 6. Continue with beta-minerva therapy 7. GI/DVT prophylaxis Discharge Plan: Home Plan to discharge in: Greater than 2 days - Code Status/Comfort Care Code Status Assessed: Yes Code Status: Full Code
[2021-10-13] MEDS: INSULIN GLARGINE 100 UNIT/ML SQ SCH ×2 (09:00→21:10)
[2021-10-13] MEDS: AMLODIPINE 5 MG TAB PO SCH (09:00)
[2021-10-13] MEDS: CALCITROL 0.25 MCG CAP PO SCH (09:00)
[2021-10-13] MEDS: VITAMIN D 1000 UNIT TAB PO SCH (09:00)
[2021-10-13 09:28] LABS: Protime INR 1.77
--- NOTE | 2021-10-13 16:08 | P.PN ---
Subjective Date of Service: 10/13/21 Chief Complaint: Fatigue Subjective: Improving No acute changes overnight. He reports that he is eager to be discharged home. His discharge is pending placement in an outpatient dialysis chair. He denies any chest pain, palpitations, or shortness of breath. Review of Systems 10-point ROS is otherwise unremarkable Genitourinary: Other (now on hemodialysis) Musculoskeletal: Pedal edema Physical Examination - Vital Signs Temperature: 97.9 F Blood Pressure: 138/87 Pulse: 64 Respirations: 18 Pulse Ox (%): 95 - Physical Exam General: Alert, In no apparent distress, Oriented x3 HEENT: Atraumatic, Mucous membr. moist/pink, EOMI, Sclerae nonicteric Neck: Supple, JVD not distended Respiratory: Clear to auscultation bilaterally, Normal air movement, Diminished Cardiovascular: Regular rate/rhythm, Normal S1 S2, No gallops, No rubs, No murmurs Gastrointestinal: Normal bowel sounds, Soft and benign, No tenderness, No rebound, No guarding Musculoskeletal: No tenderness Integumentary: No rashes Neurological: Normal speech, Normal affect - Studies Medications List Reviewed: Yes Assessment And Plan - Plan # KDIGO Stage III Acute Kidney Injury on Chronic Kidney Disease Stage IV, now with End-Stage Renal Disease on MWF iHD # Uremia secondary to above # Microscopic Hematuira - Nephrology consulted - recommendations appreciated - Currently on hemodialysis - Initial plan was for renal biopsy today, but this was not performed due to supratherpuetic INR - Monitor creatinine and urine output - Renally dose medications # 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 # Coronary Artery Disease # Severe Tricuspid Regurgitation # Tachyarrhyhtmia s/p PPM - Cardiology consulted and spoke with Dr. East - recommendations appreciated - NT-Pro BNP = 34,476 - Last transthoracic echocardiogram (08/08/2021) - "moderately depressed left ventricular ejection fraction 35-40%. severe inferior wall hypokinesis. moderate to severe tricuspid regurgitation. mild mitral regurgitation, mild pulmonic insufficiency, mild aortic insufficiency. severe pulmonary hypertension with right ventricular systolic pressure greater than 60mmhg. moderate diastolic dysfunction." - TTE (10/07/2021) - "severely depressed left ventricular ejection fraction 25-30%. severe global hypokinesis. left atrial enlargement with mild mitral regurgitation, mild aortic insufficiency. severe tricuspid regurgitation. severe pulmonary hypertension with right ventricular systolic pressure greater than 60 mmHg." - NM stress test (10/08/2021) = LVEF 17 % - It is unclear if he has a ICD in place with his PPM. If he does not have a ICD, he will likely require a Life Vest at discharge - Volume status improving significantly with hemodialysis - Resume anticoagulation pending renal biopsy - Daily weights - Strict I/O - Cardiac diet, 1.5 L fluid restriction, 2 g Na restriction # Insulin-Dependent Diabetes Mellitus - Continue insulin glargine 15 units BID + correction scale insulin # Hypertension - Continue metoprolol, amlodipine # Right Shoulder Pain On examination, his right shoulder deficits appear consistent with a rotator cuff injury. - Follow-up as an outpatient for MRI right shoulder Elie Norris MD
[2021-10-13] MEDS: HYDROCODONE/APAP 5/325 MG TAB PO PRN (17:24)
[2021-10-13] MEDS ORDERED: VITAMIN K (ADULT) 10 MG/ML SQ ONE ×3 (23:00→23:12)
[2021-10-14 01:08] VITALS: O2SAT 93
--- NOTE | 2021-10-14 03:22 | PN ---
Date of Progress Note: 10/13/2021 Chief Complaint: Chronic kidney disease, acute kidney injury. Subjective: The patient has had acute kidney injury, which required dialysis support. The patient had dialysis done on October 09. He remains nonoliguric, creatinine level has not improved significantly and dialysis was ordered for today. The patient was scheduled to have renal diet, although it was canceled by Radiology because INR was 1.7. The patient is to have vitamin K to stabilize INR. Review of Systems: Denies fever, chills. Physical Examination: Lungs: Clear to auscultation bilaterally. Heart: S1, S2. Abdomen: Soft. Extremities: No edema. Impression And Plan: 1. Acute kidney injury on chronic kidney disease. The patient has nephrotic range proteinuria and hematuria. The patient is to have renal biopsy. Plan is to re-evaluate INR. Heparin was on hold. Continue to hold heparin. Continue to hold Coumadin. 2. Hypertension, controlled. Continue current treatment. 3. Acute kidney injury dialysis is scheduled for today with ultrafiltration. Monitor blood pressure during dialysis. 4. Nephrotic range proteinuria. Due to the presence of hematuria, the patient needs to be ruled out for nephritis, and to rule out acute glomerulonephritis or rapidly progressive glomerulonephritis. 5. Coronary artery disease, per Primary team. ADRIANA/EUGENIO Voice ID: [id number] Report ID: [id number] CHAUNCEY
[2021-10-14 06:02] LABS: Hematocrit 41.7 % (39.6-49.0); MCV 95.9 fL (80-100); MPV 8.9 fL (7.6-11.3); RBC Red Blood Cell Count 4.35 M/uL (4.33-5.43)
[2021-10-14 06:05] LABS: Protime INR 1.75
[2021-10-14 06:14] LABS: Potassium 3.9 mmol/L (3.5-5.1)
[2021-10-14] MEDS: METOPROLOL TAR 25 MG TAB PO SCH ×2 (06:28→17:06)
[2021-10-14] MEDS: HYDROCODONE/APAP 5/325 MG TAB PO PRN ×3 (06:28→23:29)
[2021-10-14] MEDS: INSULIN -REGULAR HUMAN 50 UNIT/0.5 ML ML SQ SCH ×4 (07:30→20:24)
[2021-10-14] MEDS: SEVELAMER CARBONATE 800 MG TABLET PO SCH ×3 (08:00→17:06)
[2021-10-14] MEDS: AMLODIPINE 5 MG TAB PO SCH (10:56)
[2021-10-14] MEDS: CALCITROL 0.25 MCG CAP PO SCH (10:56)
[2021-10-14] MEDS: VITAMIN D 1000 UNIT TAB PO SCH (10:56)
[2021-10-14] MEDS: INSULIN GLARGINE 100 UNIT/ML SQ SCH ×2 (10:57→20:25)
--- NOTE | 2021-10-14 11:34 | P.PN ---
Subjective Date of Service: 10/14/21 Chief Complaint: Fatigue Subjective Pt with CKD baselince Cr ~3.5 , had Shyann , started on HD on 10/09 today no overnight events Biopsy aborted due to elevated PT will stop heparin and transfuse 1 FFP tomorrow morning biopsy rescheduled for tomorrow Physical exam General: AAOx3, NAD, obese HEENT PERRLA, moist mucose membrane neck: supple, no elevated JVD CHEST; CTAB, no wheezes or rales HEART : RRR. Normal S1,2 no murmur or rub Abd: soft, Nt Ext: trace edema Skin : No rash A/P #Acute kidney injury on advanced chronic kidney disease with nephrotic range of proteinuria with hematuria. baseline Cr 3.5 Kidney biopsy for today rescheduled for Wednesday next week. Hold heparin 4 hour before, 6 hours after. Keep holding Coumadin and we will follow up. started on HD on 10/09 renal diet renal dose medication Biopsy aborted due to elevated PT will stop heparin and transfuse 1 FFP tomorrow morning biopsy rescheduled for tomorrow #Hypertension, controlled. Cont current BP med regimen. #Nephrotic range of proteinuria, possibly secondary to diabetes with the presence of hematuria, to rule out nephritis. Kidney biopsy pending. biopsy as above #DM2. Mngt per primary team. #Coronary artery disease with congestive heart failure. Per primary team. Total time spent 45 minutes including documentation, reviewing labs , placing orders and discussing with medical team Physical Examination - Vital Signs Temperature: 97.6 F Blood Pressure: 114/73 Pulse: 66 Respirations: 18 Pulse Ox (%): 95 - Studies Medications List Reviewed: Yes
--- NOTE | 2021-10-14 13:29 | P.PN ---
Subjective Date of Service: 10/14/21 Chief Complaint: Fatigue No acute events overnight. He is frustrated that he was unable to have the kidney biopsy yesterday. He reports that he is eager to be discharged home. He is aware that his discharge is pending placement in an outpatient dialysis chair, for which he was in agreement. He denies any chest pain, palpitations, or shortness of breath. Review of Systems General: Unremarkable Eyes: Unremarkable ENT: Unremarkable Respiratory: Unremarkable Cardiovascular: Unremarkable Gastrointestinal: Unremarkable Genitourinary: Other (on MWF iHD) Musculoskeletal: Pedal edema Integumentary: Unremarkable Neurological: Unremarkable Physical Examination - Vital Signs Temperature: 96.9 F Blood Pressure: 127/80 Pulse: 76 Respirations: 18 Pulse Ox (%): 97 - Studies Medications List Reviewed: Yes Assessment And Plan - Plan PHYSICAL EXAM: General: Alert, In no apparent distress, Oriented x3 HEENT: Atraumatic, Mucous membr. moist/pink, EOMI, Sclerae nonicteric Neck: Supple, JVD not distended Respiratory: Clear to auscultation bilaterally, Normal air movement, Diminished Cardiovascular: Regular rate/rhythm, Normal S1 S2, No gallops, No rubs, No murmurs Gastrointestinal: Normal bowel sounds, Soft and benign, No tenderness, No rebound, No guarding Musculoskeletal: No tenderness Integumentary: No rashes Neurological: Normal speech, Normal affect ASSESSMENT/PLAN: # KDIGO Stage III Acute Kidney Injury on Chronic Kidney Disease Stage IV, now with End-Stage Renal Disease on MWF iHD # Uremia secondary to above # Microscopic Hematuira - Nephrology consulted - recommendations appreciated - Currently on hemodialysis - Initial plan was for renal biopsy yesterday, but this was not performed due to supratherpuetic INR - I spoke with Dr. Dorman, who spoke with IR attending - Plan is for FFP in the morning, and renal biopsy tomorrow - Monitor creatinine and urine output - Renally dose medications # 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 # Coronary Artery Disease # Severe Tricuspid Regurgitation # Tachyarrhyhtmia s/p PPM - Cardiology consulted and spoke with Dr. East - recommendations appreciated - NT-Pro BNP = 34,476 - Last transthoracic echocardiogram (08/08/2021) - "moderately depressed left ventricular ejection fraction 35-40%. severe inferior wall hypokinesis. moderate to severe tricuspid regurgitation. mild mitral regurgitation, mild pulmonic insufficiency, mild aortic insufficiency. severe pulmonary hypertension with right ventricular systolic pressure greater than 60mmhg. moderate diastolic dysfunction." - TTE (10/07/2021) - "severely depressed left ventricular ejection fraction 25-30%. severe global hypokinesis. left atrial enlargement with mild mitral regurgitation, mild aortic insufficiency. severe tricuspid regurgitation. severe pulmonary hypertension with right ventricular systolic pressure greater than 60 mmHg." - NM stress test (10/08/2021) = LVEF 17 % - He does not have a ICD, and he will likely require a Life Vest at discharge - Appreciate Case Management assistance - Volume status improving significantly with hemodialysis - Resume anticoagulation pending renal biopsy - Daily weights - Strict I/O - Cardiac diet, 1.5 L fluid restriction, 2 g Na restriction # Insulin-Dependent Diabetes Mellitus - Continue insulin glargine 15 units BID + correction scale insulin # Hypertension - Continue metoprolol, amlodipine # Right Shoulder Pain On examination, his right shoulder deficits appear consistent with a rotator cuff injury. - Follow-up as an outpatient for MRI right shoulder Elie Norris MD
[2021-10-14] MEDS ORDERED: VITAMIN K (ADULT) 10 MG/ML SQ ONE (23:00)
[2021-10-15 05:52] LABS: Hematocrit 37.7 % (39.6-49.0); MCV 96.1 fL (80-100); MPV 8.8 fL (7.6-11.3); RBC Red Blood Cell Count 3.92 M/uL (4.33-5.43)
[2021-10-15] MEDS: METOPROLOL TAR 25 MG TAB PO SCH (06:00)
[2021-10-15 06:01] LABS: Protime INR 1.55
[2021-10-15 06:11] LABS: Albumin 2.5 g/dL (3.4-5.0); Bilirubin Total 0.7 mg/dL (0.2-1.0); Potassium 3.9 mmol/L (3.5-5.1); Protein, Total 6.3 g/dL (6.4-8.2)
[2021-10-15] MEDS: INSULIN -REGULAR HUMAN 50 UNIT/0.5 ML ML SQ SCH ×3 (07:30→16:22)
[2021-10-15] MEDS ORDERED: NA CHLORIDE 0.9% 250 ML ONE (07:39)
[2021-10-15] MEDS: SEVELAMER CARBONATE 800 MG TABLET PO SCH ×2 (08:00→12:00)
[2021-10-15] MEDS: INSULIN GLARGINE 100 UNIT/ML SQ SCH (09:00)
[2021-10-15] MEDS: AMLODIPINE 5 MG TAB PO SCH (09:00)
[2021-10-15] MEDS: VITAMIN D 1000 UNIT TAB PO SCH (09:00)
[2021-10-15] MEDS: CALCITROL 0.25 MCG CAP PO SCH (09:00)
[2021-10-15] MEDS ORDERED: FENTANYL CITR 100 MCG/2 ML ONE (10:20)
[2021-10-15] MEDS ORDERED: MIDAZOLAM HCL 2 MG/2 ML INJ ONE (10:21)
[2021-10-15] MEDS ORDERED: NALOXONE 0.4 MG/ML VIAL ONE (10:22)
[2021-10-15] MEDS ORDERED: FLUMAZENIL 0.1 MG/ML (5 mL VIAL) IV ONE (10:23)
[2021-10-15] MEDS ORDERED: NA CHLORIDE 0.9% 500 ML ONE (10:24)
--- NOTE | 2021-10-15 12:11 | RAD REPORT ---
EXAM DESCRIPTION: CT - Renal Biopsy CT - 10/15/2021 11:45 am CLINICAL HISTORY: Renal Failure COMPARISON: No comparisons FINDINGS: Preoperative diagnosis: Renal failure Post operative diagnosis: Same Conscious Sedation: 45 minutes of IV conscious sedation utilizing fentanyl and midazolam. Patient was continuously monitored by nursing staff. Contrast used: NONE Estimated blood loss: less than 5 mL Specimens: 3 x 18 gauge The patient was placed prone on the table and the left posterior flank area was prepped and draped in the usual sterile fashion. 1% lidocaine was infiltrated into the subcutaneous tissues for local anes thesia. Under computed tomographic guidance, a 17 gauge introducer was advanced into the lower pole l eft kidney. Subsequently, a 18 gauge, 15 cm long, 20 mm throw core biopsy gun was advanced into the l ower pole left kidney and 3 cores were obtained. Postprocedure imaging demonstrated no complications. Samples were given to pathology for analysis. Th e patient tolerated the procedure without immediate complication and transferred to the recovery room in stable condition. IMPRESSION: Successful nonfocal left renal biopsy. 45 minutes of monitored IV conscious sedation was utilized. All CT scans are performed using dose optimization technique as appropriate and may include automated exposure control or mA/KV adjustment according to patient size.
--- NOTE | 2021-10-15 13:46 | P.DS ---
Admission Date: 10/04/21 Discharge Date: 10/15/21 Disposition: AMA-LEFT AGAINST MEDICAL ADVIC Discharge Condition: FAIR Reason for Admission: Fatigue Consultations: 1. Nephrology 2. Cardiology Procedures: - 10/09/2021 - Tessio Dialysis Catheter Placement - 10/15/2021 - Renal Biopsy Hospital Course: Mr. Binu Mcelroy has decided to leave AGAINST MEDICAL ADVICE. At this time, I recommend continued hospitalization until we can secure a safe discharge. Currently, he is immediately s/p renal biopsy, for which I would like to observe him for 24 hours prior to him leaving. Additionally, we have not been able to secure a LifeVest or dialysis chair for him at this time. I highly recommend that he remain hospitalized, but he has declined. I have explained the risks of him leaving prematurely, which include, but are not limited to, fatal cardiac arrhythmias, hypervolemia and inability to be dialyzed, resulting to respiratory failure, and potentially . He states that he accepts these risks and would like to be discharged despite these risks because his daughter has surgery tomorrow morning at 5 AM. Charge nurse SHIREEN Evans was present for this discussion. Based on his ability to understand his disease process, understand the consequences of not pursuing therapy, communicate that he would like to be discharged, and his ability to explain his rationale for being discharged (his daughter's surgery), we believe that he has medical decision making capacity. DIAGNOSES: # KDIGO Stage III Acute Kidney Injury on Chronic Kidney Disease Stage IV, now with End-Stage Renal Disease on MWF iHD # Uremia secondary to above # Microscopic Hematuira # 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 # Coronary Artery Disease # Severe Tricuspid Regurgitation # Tachyarrhyhtmia s/p PPM # Insulin-Dependent Diabetes Mellitus # Hypertension # Right Shoulder Pain HOSPITAL COURSE: Mr. Binu Mcelroy is a 45 year old male with a past medical history significant for chronic combined systolic/diastolic congestive heart failure, insulin- dependent diabetes mellitus, severe pulmonary hypertension possibly secondary to prior pulmonary embolism (noncompliant with apixaban due to cost), severe tricuspid regurgitation, hypertension, and chronic kidney disease stage IV who was admitted to the [facility] on 10/04/2021 for acute renal failure. Upon further evaluation, he was found to be in an acute on chronic combined systolic/diastolic congestive heart failure exacerbation as well as a KDIGO Stage III acute kidney injury. Nephrology and Cardiology were consulted, and he was initially treated with IV bumetanide. Despite attempted treatment with IV diuretics, his symptoms continue to worsen. It was decided that he should start on hemodialysis, for which a tunneled dialysis catheter was placed on 10/09/2021. With hemodialysis, his volume status improved daily. In regards to his congestive heart failure exacerbation, a transthoracic echocardiogram revealed, ""severely depressed left ventricular ejection fraction 25-30%. severe global hypokinesis. left atrial enlargement with mild mitral regurgitation, mild aortic insufficiency. severe tricuspid regurgitation. severe pulmonary hypertension with right ventricular systolic pressure greater than 60 mmHg." A nuclear medicine cardiac stress test revealed no reversible ischemia and an LVEF of 17 %. It was recommended that he be discharged with a Life Vest as he currently does not have an ICD in place. Our case management is actively trying to find him a dialysis chair where he can take his Life Vest, and he is aware this has not been secured yet. In regards to his anticoagulation, he states that apixaban is too expensive. I have discussed this with Dr. Lopes, who rec ommended rivaroxaban 10 mg daily (first dose on 10/18/2021), and I have discussed this in detail with Mr. Mcelroy. Case Management will provide him with a coupon for rivaroxaban, I have notified him of his microscopic hematuria and how this can represent a urologic malignancy. He is aware and will follow this up with his PCP. As mentioned above, I would like to observe him 24 hours post-renal biopsy as well as have a dialysis chair and Life Vest secured prior to discharge. He has medical decision making capacity and has decided to leave AGAINST MEDICAL ADVICE, so we will respect his wishes. I have sent the prescriptions below to his pharmacy as well as given him information to schedule follow-ups with his PCP, Cardiology, and Nephrology. I have advised that he return to the Emergency Department should any of his symptoms worsen or if he changes his mind. Today, I personally spent 45 minutes with him, of which greater than 50% of the time was spent in patient education, counseling, and coordination of care as described above. PHYSICAL EXAMINATION: General: Alert, In no apparent distress, Oriented x3 HEENT: Atraumatic, Mucous membr. moist/pink, EOMI, Sclerae nonicteric Neck: Supple, JVD not distended Respiratory: Clear to auscultation bilaterally, Normal air movement, Diminished Cardiovascular: Regular rate/rhythm, Normal S1 S2, No gallops, No rubs, No murmurs Gastrointestinal: Normal bowel sounds, Soft and benign, No tenderness, No rebound, No guarding Musculoskeletal: No tenderness Integumentary: No rashes Neurological: Normal speech, Normal affect Vital Signs/Physical Exam: Temp Pulse Resp BP Pulse Ox 98.0 F 63 18 117/84 97 10/15/21 08:00 10/15/21 08:00 10/15/21 08:00 10/15/21 08:00 10/15/21 08:00 Laboratory Data at Discharge: WBC 12.7 K/uL (4.3-10.9) H 10/15/21 05:30 Hgb 12.5 g/dL (13.6-17.9) L 10/15/21 05:30 Hct 37.7 % (39.6-49.0) L 10/15/21 05:30 Plt Count 217 K/uL (152-406) 10/15/21 05:30 PT 17.2 SECONDS (9.5-12.5) H 10/15/21 05:30 INR 1.55 10/15/21 05:30 APTT Cancelled 10/14/21 11:32 Sodium 139 mmol/L (136-145) 10/15/21 05:30 Potassium 3.9 mmol/L (3.5-5.1) 10/15/21 05:30 BUN 54 mg/dL (7-18) H 10/15/21 05:30 Creatinine 2.85 mg/dL (0.55-1.3) H 10/15/21 05:30 Glucose 86 mg/dL (74-106) 10/15/21 05:30 Uric Acid 9.3 mg/dL (3.5-7.2) H D 10/08/21 05:26 Phosphorus 4.5 mg/dL (2.5-4.9) 10/13/21 06:35 Magnesium Cancelled 10/11/21 05:00 Total Bilirubin 0.7 mg/dL (0.2-1.0) 10/15/21 05:30 AST 11 U/L (15-37) L 10/15/21 05:30 ALT 16 U/L (12-78) 10/15/21 05:30 Alkaline Phosphatase 173 U/L (45-117) H 10/15/21 05:30 Home Medications: Gabapentin 1 tab PO TID 01/02/21 Insulin Lispro [Humalog] See Protocol SQ TID 01/02/21 Rosuvastatin Calcium [Crestor] 1 tab PO BEDTIME 01/02/21 Allopurinol 100 mg PO TID 02/03/21 Amlodipine [Norvasc*] 5 mg PO DAILY 02/03/21 Glipizide [Glipizide ER] 1 tab PO DAILY 08/08/21 Clopidogrel Bisulfate [Plavix*] 75 mg PO DAILY tablet 08/10/21 Calcitrol [Rocaltrol*] 0.25 mcg PO DAILY #30 cap 10/15/21 Insulin Glargine,Hum.rec.anlog [Lantus] 15 units SQ BID #1 ea 10/15/21 Metoprolol Tartrate [Lopressor*] 25 mg PO BID 6AM 6PM #60 tab 10/15/21 Rivaroxaban [Xarelto] 10 mg PO DAILY #30 tablet 10/15/21 Sevelamer Carbonate [Renvela*] 1,600 mg PO TIDWM #90 tablet 10/15/21 New Medications: Insulin Glargine,Hum.rec.anlog [Lantus] 15 units SQ BID #1 ea Metoprolol Tartrate [Lopressor*] 25 mg PO BID 6AM 6PM #60 tab Sevelamer Carbonate [Renvela*] 1,600 mg PO TIDWM #90 tablet Calcitrol [Rocaltrol*] 0.25 mcg PO DAILY #30 cap Rivaroxaban [Xarelto] 10 mg PO DAILY #30 tablet Physician Discharge Instructions: 1. PLEASE DO NOT TAKE YOUR RIVAROXABAN (XARELTO) OR YOUR CLOPIDOGREL (PLAVIX) UNTIL 10/18/2021 2. Please schedule a follow-up appointment with your PCP in 3-5 days 3. Please call our hospital tomorrow and ask for Case Management for an update on your Life Vest and Dialysis Chair 4. Please schedule a follow-up appointment with Cardiology (Dr. East) in 5-7 days 5. Please schedule a follow-up appointment with Nephrology (Dr. Walker) in 3-5 days Diet: Renal Activity: Ad thu Followup: Ave Nolasco PA [Primary Care Provider] - Veronica Dorman MD [ACTIVE - CAN ADMIT] - Dale East MD [ACTIVE - CAN ADMIT] -
[2021-10-15 13:52] LABS: Protime INR 1.45
--- NOTE | 2021-10-15 15:17 | PN ---
Date of Progress Note: 10/15/2021 Subjective: The patient admitted with acute kidney injury on advanced chronic kidney disease. The patient was initiated on dialysis. The patient had hematuria and nephrotic range of proteinuria. The patient is scheduled for kidney biopsy today. Physical Examination: Vital Signs: Blood pressure 117/84, pulse of 63, afebrile. Chest: Clear to auscultation. Heart: S1, S2. Regular. Abdomen: Soft, nontender. Extremity: Trace edema. Neurologic: Alert. No focality. Laboratory Data: WBC 12.7, H and H 12.5/37.7. Sodium 139, potassium 3.9, bicarb 28, BUN 54, creatinine 2.8, GFR of 27. Current Medications: The patient on include heparin has been held. Amlodipine, metoprolol, Renvela, calcitriol. Assessment And Plan: 1. Acute kidney injury on chronic kidney disease, possible nephritis. Serology only positive for TIFF. We will continue with biopsy. We will do a session of dialysis today. The patient will be okay from the Renal standpoint for discharge. Discharge tomorrow if everything is stable and chair was set with [facility]. We will follow up the biopsy. 2. Nephrotic range of proteinuria with the advanced kidney disease. We will follow up with the biopsy and we will hold on any KAREN inhibitor or ARB. 3. Anemia of chronic kidney disease. No need for FIDEL. 4. Congestive heart failure, currently normal volume. We will follow up. 5. Diabetes as by primary. 6. Hyperkalemia, resolved. 7. Pulmonary embolism. To rule out pulmonary and renal, we will follow up the biopsy. 8. Secondary hyperparathyroidism. Continue calcitriol. Time spent examining the patient [id number], reviewing the data, placing order, discussing with by bedside, discussing with staff member including charge nurse and nursing and hospitalist 45 minutes. ARMANI Voice ID: [id number] Report ID: [id number] CHAUNCEY
[2021-10-15 16:17] VITALS: BP 118/71; TEMP 98.3
--- OUTSIDE RECORDS SUMMARY | 2021-10-15 21:10 | XMS REPORT | Continuity of Care Document ---
:1975 Author Organization [facility] t Address [address] [place] [address] Dr. [address]. [address] [place] [address] Care Team Providers Name Role Phone ALEXEI ENRIQUEZ Primary Care Physician Unavailable RIMA Attending Clinician [phone] DIANE Attending Clinician Unavailable DIANE Attending Clinician [phone] DR PATRICK Attending Clinician Unavailable LULU Attending Clinician [phone] SHELBY Attending Clinician [phone] NURSE Attending Clinician Unavailable FRANZ Attending Clinician Unavailable OSEI Attending Clinician [phone] DR DIANE Attending Clinician Unavailable Kathleen Riddle MD Attending Clinician Ayden SCHULER Attending Clinician Nuvia Lugo MD Attending Clinician Jackie Nguyen MD Attending Clinician Deacon Nair MD Attending Clinician OMORI Attending Clinician Unavailable OMORI Attending Clinician [phone] IRIZARRY Attending Clinician Unavailable IRIZARRY Attending Clinician [phone] Ayden eSrra MD Attending Clinician Landry SCHULER Attending Clinician Lilliam SCHULER Attending Clinician Neida Luog MD Attending Clinician Warren Blunt MD Attending Clinician LUBNA Attending Clinician Unavailable LUBNA Attending Clinician [phone] JERRY HUMMEL Attending Clinician Unavailable AYDEN SERRA Attending Clinician Unavailable [facility] Attending Clinician Unavailable SIDDHARTHA Attending Clinician Unavailable ENRIQUE Attending Clinician [phone] JONAS Attending Clinician Unavailable MIMA MARQUIS Attending Clinician Unavailable RADHA MURGUIA Attending Clinician Unavailable KASSI KULKARNI Attending Clinician Unavailable MANAV Attending Clinician [phone] SWETHA Attending Clinician Unavailable JEFFY Attending Clinician Unavailable ISAURA Attending Clinician [phone] MOSESAMABecky Attending Clinician Unavailable TIMA Attending Clinician [...] Effective Date Expiration Date S ource 1000 [id number] 1961 00:00:00 0165 [id number] 1961 00:00:00 J[facility]I CARE - [id number] GENERIC [id number] MEDICAID MEDICARE PART A [id number] 2019 \\T\\ B - MEDICARE 00:00:00 Problems [...] angina [facility] [place] Abnormal Abnormal Disease [facility] [place] NSTEMI NSTEMI Disease Active 2015-[address] [facility] [...] [facility] g of [facility] edical scabiei scabiei 00 note Center might be different from the original. 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 UPDATED BY ICD10 SNOMED/IM O UPDATES Hypertensi Hypertensi Disease Active [facility] Diabetes Diabetes Disease Active [facility] mellitus mellitus [facility] Diabetic Diabetic Disease Active [facility] neuropathy neuropathy [facility] Hyperlipid Hyperlipid Disease Active [facility] emia emia [facility] Carpal Carpal Disease Active [facility] tunnel [facility] syndrome syndrome [facility] Allergies, Adverse Reactions, Alerts Allergy Allergy Status Severity Reaction(s) Onset Inactive Treating Comm ents Source Name Type Date Date Clinician NO KNOWN Allergy Active [facility] Social History Social Habit Start Date Stop Date Quantity Comments Source Alcohol intake 2019-07-03 [facility] 00:00:00 History of tobacco 2019-04-04 Current non-smoker [facility] use 00:00:00 Nutritional 2019-04-04 [facility] observable 00:00:00 Tobacco use and 2019-04-04 : No Details Access [facility] exposure 00:00:00 Available Quantity Details - : No Details Available Health-related 2019-04-04 [facility] Behavior 00:00:00 Sex Assigned At Male [facility] History SDOH [facility] Alcohol Frequency Medical Center History SDOH [facility] Alcohol Std Drinks [facility] History SDOH [facility] Alcohol Binge Medical [facility] ter Cigarettes smoked 2016-01-08 2016-01-[address] [facility] current (pack per 00:00:00 00:00:00 Medical Center day) - Reported Cigarette 2016-01-08 2016-01-[address] [facility] pack-years 00:00:00 00:00:00 [facility] Alcohol Comment 2012-10-15 2012-10-[address] [facility] 00:00:00 00:00:00 [facility] Center Smoking Status Start Date Stop Date Source Unknown if ever smoked [facility] Former smoker 2020-04-26 00:00:00 2020-04-26 [facility]ations Ordered Filled Start Stop Current Ordering Indication Dosage Frequency Signature Comments Components Source Medication Medication Date Date Medication? Clinician (SIG) Name Name metolazone No take 1 [facility] 5 mg tablet 5-10 tablet by eal 00:00: oral route 00 every day metolazone No take 1 [facility] 5 mg tablet 5-10 tablet by eal th 00:00: oral route 00 every day carvedilol [...] 0 No 1{table Q12H take 1 Ac cessH [...] 1 mg tablet 2-15 tablet (1 eal 00:00: mg) by 00 [...] 1 mg tablet 2-15 tablet (1 eal 00:00: mg) by 00 [...] tablet 00:00: oral route 00 every day isosorbide [...] tablet 00:00: oral route 00 every day isosorbide [...] 00:00: oral route 00 every day metolazone 2021- No take 1 Acce ss[facility] 5 mg tablet 2-15 05-10 tablet by ea lth 00:00: 00:00 oral route 00 :00 every day metolazone 2021- No take 1 [facility] ss[facility] 5 mg tablet 2-15 05-10 tablet by ea lth 00:00: 00:00 oral route 00 :00 every day Humalog 2021- No inject [facility] KwikPen 2-15 29 5-10 Units ealth (U-100) 00:00: 00:00 by Insulin 100 00 :00 Subcutaneo unit/mL us route 3 subcutaneou times per s day on a medium sliding scale three times a day before meals Humalog 2021- No inject [facility] KwikPen 2-15 03-29 5-10 Units [facility] (U-100) 00:00: 00:00 by [...] three times a day before meals Aldactone 2021-0 2021- No 1{table Q1D take [...] TWICE A DAY WITH FOOD Aldactone 2-0 2- No 1{table Q1D take 1 Ac [...] TWICE A DAY WITH FOOD Aldactone 2022-0 2022- No 1{table Q1D take 1 Ac cessH 25 mg 2-15 02-15 t} tablet by [facility] tablet 00:00: 00:00 oral route 00 :00 every day carvedilol 2022-0 2022- No TAKE ONE Ac cessH 12.5 mg 2-15 02-15 TABLET BY [facility]alth tablet 00:00: 00:00 MOUTH 00 :00 TWICE A DAY WITH FOOD Aldactone 2022-0 2022- No 1{table Q1D take 1 Ac cessH 25 mg 2-15 02-15 t} tablet by [facility]alth tablet 00:00: 00:00 oral route 00 :00 every day carvedilol 2-0 2- No TAKE ONE Ac cessH 12.5 mg 2-15 02-15 TABLET BY [facility]alth tablet 00:00: 00:00 MOUTH 00 :00 TWICE A DAY WITH FOOD Aldactone 2022-0 2022- No 1{table Q1D take 1 Ac cessH 25 mg 2-15 02-15 t} tablet by [facility] tablet 00:00: 00:00 oral route 00 :00 every day carvedilol 2022-0 2- No TAKE ONE Ac cessH 12.5 mg 2-15 02-15 TABLET BY [facility]alth tablet 00:00: 00:00 MOUTH 00 :00 TWICE A DAY WITH FOOD Aldactone 2022-0 2022- No 1{table Q1D take 1 Ac cess[facility] 25 mg 2-15 02-15 t} tablet by [facility] tablet 00:00: 00:00 oral route 00 :00 every day carvedilol 2022-0 2- No TAKE ONE Ac cess[facility] 12.5 mg 2-15 02-15 TABLET BY [facility] tablet 00:00: 00:00 MOUTH 00 :00 TWICE A DAY WITH FOOD Aldactone 2022-0 2022- No 1{table Q1D take 1 Ac cessH 25 mg 2-15 02-15 t} tablet by [facility] tablet 00:00: 00:00 oral route 00 :00 every day carvedilol 2022-0 2022- No TAKE ONE Ac cessH 12.5 mg 2-15 02-15 TABLET BY [facility] tablet 00:00: 00:00 MOUTH 00 :00 TWICE A DAY WITH FOOD Aldactone 2022-0 2022- No 1{table Q1D take 1 Ac cessH 25 mg 2-15 02-15 t} tablet by [facility] tablet 00:00: 00:00 oral route 00 :00 every day carvedilol 2022-0 2022- No TAKE ONE Ac cessH 12.5 mg [...] oral route 00 :00 every day carvedilol 2022-0 2- No TAKE ONE Ac cessH 12.5 mg 2-15 02-15 TABLET BY [facility] tablet 00:00: 00:00 MOUTH 00 :00 TWICE A DAY WITH FOOD Aldactone 2022-0 2- No 1{table Q1D take 1 Ac cessH 25 mg 2-15 02-15 t} tablet by [facility] tablet 00:00: 00:00 oral route 00 :00 every day carvedilol 2022-0 2022- No TAKE ONE Ac cessH 12.5 mg [...] :00 TWICE A DAY WITH FOOD rosuvastati 2022-0 No 1{table Q1D take 1 A ccessH n 40 mg 2-03 t} tablet by [facility] tablet 00:00: oral route 00 every day rosuvastati 2022-0 2022- No 1{table Q1D take 1 [facility] n 40 mg 2-03 02-15 t} tablet by [facility] tablet 00:00: 00:00 oral route 00 :00 every day rosuvastati 2022-0 2022- No 1{table Q1D take 1 [facility] n 40 mg 2-03 02-15 t} tablet by [facility] tablet 00:00: 00:00 oral route 00 :00 every day rosuvastati 2022-0 2022- No 1{table Q1D take 1 [facility] n 40 mg 2-03 02-15 t} tablet by [facility] tablet 00:00: 00:00 oral route 00 :00 every day rosuvastati 2022-0 2022- No 1{table Q1D take 1 [facility] n 40 mg 2-03 02-15 t} tablet by [facility] tablet 00:00: 00:00 oral route 00 :00 every day rosuvastati 2022-0 2022- No 1{table Q1D take 1 [facility] n 40 mg 2-03 02-15 t} tablet by [facility] tablet 00:00: 00:00 oral route 00 :00 every day rosuvastati 2022-0 2022- No 1{table Q1D take 1 [facility] n 40 mg 2-03 02-15 t} tablet by [facility]alth tablet 00:00: 00:00 oral route 00 :00 every day rosuvastati 2022-0 2022- No 1{table Q1D take 1 [facility] n 40 mg 2-03 02-15 t} tablet by [facility] tablet 00:00: 00:00 oral route 00 :00 every day rosuvastati 2022-0 2022- No 1{table Q1D take 1 [facility] n 40 mg 2-03 02-15 t} tablet by [facility] tablet 00:00: 00:00 oral route 00 :00 every day isosorbide 2022-0 No take 1 [facility] mononitrate 1-05 tablet (60 ea lth ER 60 mg 00:00: mg) by tablet,exte 00 oral route nded once daily release 24 in the hr morning clopidogrel No take 1 Acce ssH 75 mg 1-05 tablet (75 [facility] tablet 00:00: mg) by 00 oral route once daily allopurinol No take 1/2 Dx: Ac cessH 100 mg 1-05 tablet (50 M10.449, eal th tablet 00:00: mg) by N18.32 00 oral route every OTHER day isosorbide No take 1 [facility]es [facility] mononitrate 1-05 tablet (60 ea lth ER 60 mg 00:00: mg) by tablet,exte 00 oral route nded once daily release 24 in the hr morning clopidogrel No take 1 Acce ssH 75 mg 1-05 tablet (75 [facility]alth tablet 00:00: mg) by 00 oral route once daily allopurinol No take 1/2 Dx: Ac cessH 100 mg 1-05 tablet (50 M10.449, eal th tablet 00:00: mg) by N18.32 00 oral route every OTHER day isosorbide 2021- No take 1 Acce ssH mononitrate 1-05 02-15 tablet (60 e alth ER 60 mg 00:00: 00:00 mg) by tablet,exte 00 :00 oral route nded once daily release 24 in the hr morning clopidogrel 2021- No take 1 Acc essH 75 mg [...] morning clopidogrel 2021- No take 1 Acc ess[facility] 75 mg 1-05 02-15 tablet (75 [facility] tablet 00:00: 00:00 mg) by 00 :00 oral route once daily allopurinol 2021-2021- No take 1/2 Dx: A ccessH 100 mg 1-05 02-15 tablet (50 M10.449, ea lth tablet 00:00: 00:00 mg) by N18.32 00 :00 oral route every OTHER day isosorbide 2021-0 2021- No take 1 Acce ssH mononitrate 1-05 [...] isosorbide 2021-0 2021- No take 1 Acce ssH mononitrate 1-05 02-15 tablet (60 e alth ER 60 mg 00:00: 00:00 mg) by tablet,exte 00 :00 oral route nded once daily release 24 in the hr morning clopidogrel 2021-0 2021- No take 1 Acc essH 75 mg 1-05 02-15 tablet (75 [facility]alth tablet 00:00: 00:00 mg) by 00 :00 oral route once daily allopurinol 2021-0 2021- No take 1/2 Dx: A ccessH 100 mg 1-05 02-15 tablet (50 M10.449, ea lth tablet 00:00: 00:00 mg) by N18.32 00 :00 oral route every OTHER day isosorbide 2-0 2021- No take 1 Acce ssH mononitrate 1-05 02-15 tablet (60 e alth ER 60 mg 00:00: 00:00 mg) by tablet,exte 00 :00 oral route nded once daily release 24 in the hr morning clopidogrel 2021-0 2021- No take 1 Acc essH 75 mg [...] isosorbide 2021-0 2021- No take 1 Acce ssH mononitrate 1-05 02-15 tablet (60 e alth ER 60 mg 00:00: 00:00 mg) by tablet,exte 00 :00 oral route nded once daily release 24 in the hr morning clopidogrel 2021- No take 1 Acc ess[facility] 75 mg 04-02 tablet (75 [facility]alth tablet 00:00: 00:00 mg) by 00 :00 oral route once daily allopurinol 2021- No take 1/2 Dx: A ccessH 100 mg 04-0215 tablet (50 M10.449, ea lth tablet 00:00: [...] sH 5 mg tablet 2-30 tablet by [facility] 00:00: oral route 00 every day bumetanide 2020-03 No take 1 [facility]es [facility] 1 mg tablet 2-30 tablet (1 eal th 00:00: mg) by 00 oral route 2 times per day carvedilol 2020-03 No 1{table Q12H take 1 Ac cessH 12.5 mg 2-30 t} tablet by ealt tablet 00:00: oral route 00 2 times every day with food amlodipine 2020-03 No take 1 Acces [facility] 5 mg tablet 2-30 tablet (5 ea 00:00: mg) by 00 oral route once daily metolazone 2020-03- No take 1 Acce ssH 5 mg tablet 2-30 -15 tablet by [facility] 00:00: 00:00 oral route 00 :00 every day bumetanide 2020-03- No take 1 Acce ssH 1 mg tablet 2-30 -15 tablet (1 e[facility] 00:00: 00:00 mg) by 00 :00 oral route 2 times per day amlodipine 2020-03- No take 1 Acce ssH 5 mg tablet 2-30 -15 tablet (5 ea [facility] 00:00: 00:00 mg) by 00 :00 oral route once daily metolazone 2020-03- No take 1 Acce ssH 5 mg tablet 2-30 -15 tablet by ea lt 00:00: 00:00 oral route 00 :00 every day bumetanide 2020-03- No take 1 Acce ssH 1 mg tablet 2-30 -15 tablet (1 ea lt 00:00: 00:00 mg) by 00 :00 oral route 2 times per day amlodipine 2020-03- No take 1 Acce ssH 5 mg tablet 2-30 -15 tablet (5 ea lt 00:00: 00:00 mg) by 00 :00 oral route once daily metolazone 2020-03- No take 1 Acce ssH 5 mg tablet 2-30 -15 tablet by [facility] 00:00: 00:00 oral route 00 :00 every day bumetanide 2020-03- No take 1 Acce ssH 1 mg tablet 230 -15 tablet (1 ea lt 00:00: 00:00 mg) by 00 :00 oral route 2 times per day amlodipine 2020-03- No take 1 Acce ssH 5 mg tablet 230 -15 tablet (5 ea lt 00:00: 00:00 mg) by 00 :00 oral route once daily metolazone 2020-03- No take 1 Acce ssH 5 mg tablet 2-15 tablet by ea [facility] 00:00: 00:00 oral route 00 :00 every day bumetanide 2020-03- No take 1 Acce ssH 1 mg tablet 2-15 tablet (1 ea [facility] 00:00: 00:00 mg) by 00 :00 oral route 2 times per day amlodipine 2020-03- No take 1 Acce ssH 5 mg tablet 2-15 tablet (5 ea [facility] 00:00: 00:00 mg) by 00 :00 oral route once daily metolazone 2020-03- No take 1 Acce ssH 5 mg tablet 2-15 tablet by [facility] 00:00: 00:00 oral route 00 :00 every day bumetanide 2020-03- No take 1 Acce ssH 1 mg tablet 2-15 tablet (1 ea [facility] 00:00: 00:00 mg) by 00 :00 oral route 2 times per day amlodipine 2020-03- No take 1 Acce ssH 5 mg tablet 230 -15 tablet (5 ea lt 00:00: 00:00 mg) by 00 :00 oral route once daily metolazone 2020-03- No take 1 Acce ssH 5 mg tablet 2-30 -15 tablet by ea [facility] 00:00: 00:00 oral route 00 :00 every day bumetanide 2020-03- No take 1 Acce ssH 1 mg tablet 230 -15 tablet (1 ea lt 00:00: 00:00 mg) by 00 :00 oral route 2 times per day amlodipine 2020-03- No take 1 Acce ssH 5 mg tablet -15 tablet (5 ea lth 00:00: 00:00 mg) by 00 :00 oral route once daily metolazone 2020-03- No take 1 Acce ssH 5 mg tablet 2-15 tablet by ea lth 00:00: 00:00 oral route 00 :00 every day bumetanide 2020-03- No take 1 Acce ssH 1 mg tablet -15 tablet (1 ea lth 00:00: 00:00 mg) by 00 :00 oral route 2 times per day amlodipine 2020-03- No take 1 Acce ssH 5 mg tablet -15 tablet (5 ea lth 00:00: 00:00 mg) by 00 :00 oral route once daily metolazone 2020-03- No take 1 Acce ssH 5 mg tablet -15 tablet by ea lth 00:00: 00:00 oral route 00 :00 every day bumetanide 2020-03- No take 1 Acce ssH 1 mg tablet -15 tablet (1 ea lth 00:00: 00:00 mg) by 00 :00 oral route 2 times per day amlodipine 2020-03- No take 1 Acce ssH 5 mg tablet -15 tablet (5 ea lth 00:00: 00:00 mg) by 00 :00 oral route once daily carvedilol 2020-03- No 1{table Q12H take 1 A ccessH 12.5 mg 2-30 -14 t} tablet by [facility]alth tablet 00:00: 00:00 oral route 00 :00 2 times every day with food carvedilol 2020-03- No 1{table Q12H take 1 A ccessH 12.5 mg 2-30 -14 t} tablet by [facility]alth tablet 00:00: 00:00 oral route 00 :00 2 times every day with food carvedilol 2020-03- No 1{table Q12H take 1 A ccessH 12.5 mg 2-30 -14 t} tablet by [facility]alth tablet 00:00: 00:00 [...] Q1W take 1 A ccessH 1,250 mcg 04-0227 le} capsule by [facility] (50,000 00:00: 00:00 oral route unit) 00 :00 every capsule week for 12 weeks Vitamin D2 2020-03- No 1{capsu Q1W take 1 A ccessH 1,250 mcg 04-0227 le} capsule by [facility] (50,000 00:00: 00:00 oral route unit) 00 :00 every capsule week for 12 weeks Vitamin D2 2020-03- No 1{capsu Q1W take 1 A ccessH 1,250 mcg 04-0227 le} capsule by [facility] (50,000 00:00: 00:00 oral route unit) 00 :00 every capsule week for 12 weeks Vitamin D2 2020-03- No 1{capsu Q1W take 1 A ccessH 1,250 mcg 04-0227 le} capsule by [facility] (50,000 00:00: 00:00 oral route unit) 00 :00 every capsule week for 12 weeks Vitamin D2 2020-03- No 1{capsu Q1W take 1 A ccessH 1,250 mcg 04-0227 le} capsule by [facility] (50,000 00:00: 00:00 oral route unit) 00 :00 every capsule week for 12 weeks Vitamin D2 2020-03- No 1{capsu Q1W take 1 A ccessH 1,250 mcg 04-0227 le} capsule by [facility] (50,000 00:00: 00:00 oral route unit) 00 :00 every capsule week for 12 weeks Vitamin D2 2020-03- No 1{capsu Q1W take 1 A ccessH 1,250 mcg -27 le} capsule by [facility] (50,000 00:00: 00:00 oral route unit) 00 :00 every capsule week for 12 weeks Vitamin D2 2020-03- No 1{capsu Q1W take 1 A ccessH 1,250 mcg -27 le} capsule by [facility] (50,000 00:00: 00:00 oral route unit) 00 :00 every capsule week for 12 weeks Vitamin D2 2020-03- No 1{capsu Q1W take 1 A ccessH 1,250 mcg 04-02 le} capsule by [facility] (50,000 00:00: 00:00 oral route unit) 00 :00 every capsule week for 12 weeks Vitamin D2 2020-03- No 1{capsu Q1W take 1 A ccessH 1,250 mcg 04-02 le} capsule by [facility] (50,000 00:00: 00:00 oral route unit) 00 :00 every capsule week for 12 weeks Vitamin D2 2020-03- No 1{capsu Q1W take 1 A ccessH 1,250 mcg 04-02 le} capsule by [facility] (50,000 00:00: 00:00 oral route unit) 00 :00 every capsule week for 12 weeks Vitamin D2 2020-03- No 1{capsu Q1W take 1 A ccessH 1,250 mcg 04-02 le} capsule by [facility] (50,000 00:00: 00:00 oral route unit) 00 :00 every capsule week for 12 weeks Vitamin D2 2020-03- No 1{capsu Q1W take 1 A ccessH 1,250 mcg 04-02 le} capsule by [facility] (50,000 00:00: 00:00 oral route unit) 00 :00 every capsule week for 12 weeks Vitamin D2 2020-03- No 1{capsu Q1W take 1 A ccessH 1,250 mcg 04-02 le} capsule by [facility] (50,000 00:00: 00:00 oral route unit) 00 :00 every capsule week for 12 weeks allopurinol 2020-03- No take 1/2 Dx: A ccessH 100 mg 1-07 27-05 tablet (50 M10.449, ea lth tablet 00:00: 00:00 mg) by N18.32 00 :00 oral route every OTHER day allopurinol 2020-03- No take 1/2 Dx: A ccessH 100 mg 1- 01-05 tablet (50 M10.449, ea lth tablet [...] Q8H take 1 A ccessH 800 mg 03-3115 t} tablet by [facility] tablet 00:00: 00:00 oral route 00 :00 3 times every day prednisone 2020-03- No take 2 Acce ssH 20 mg 03-31-15 tablet by [facility] tablet 00:00: 00:00 oral route 00 :00 every day x 5 days gabapentin 2020-03- No 1{table Q8H take 1 A ccessH 800 mg 03-31 t} tablet by [facility] tablet 00:00: 00:00 oral route 00 :00 3 times every day prednisone 2020-03- No take 2 Acce ssH 20 mg 1-03 02-15 tablet by [facility] tablet 00:00: 00:00 oral route 00 :00 every day x 5 days gabapentin 2020-2021- No 1{table Q8H take 1 A ccessH 800 mg 1-05 28-15 t} tablet by [facility] tablet 00:00: 00:00 oral route 00 :00 3 times every day prednisone 2020-2- No take 2 Acce ssH 20 mg -05 28-15 tablet by [facility] tablet 00:00: 00:00 oral route 00 :00 every day x 5 days gabapentin 2020-2021- No 1{table Q8H take 1 A ccessH 800 mg -05 28-15 t} tablet by [facility] tablet 00:00: 00:00 oral route 00 :00 3 times every day prednisone 2020-2- No take 2 Acce ssH 20 mg -05 28-15 tablet by [facility] tablet 00:00: 00:00 oral route 00 :00 every day x 5 days gabapentin 2020-2021- No 1{table Q8H take 1 A ccessH 800 mg -05 28-15 t} tablet by [facility] tablet 00:00: 00:00 oral route 00 :00 3 times every day prednisone 2020-2- No take 2 Acce ssH 20 mg -05 28-15 tablet by [facility] tablet 00:00: 00:00 oral route 00 :00 every day x 5 days gabapentin 2020-2- No 1{table Q8H take 1 A ccessH 800 mg -05 28-15 t} tablet by [facility] tablet 00:00: 00:00 oral route 00 :00 3 times every day prednisone 2020-2- No take 2 Acce ssH 20 mg -05 28-15 tablet by [facility] tablet 00:00: 00:00 oral route 00 :00 every day x 5 days gabapentin 2020-2- No 1{table Q8H take 1 A ccessH 800 mg -05 28-15 t} tablet by [facility] tablet 00:00: 00:00 oral route 00 :00 3 times every day prednisone 2020-2- No take 2 Acce ssH 20 mg -03 02-15 tablet by [facility] tablet 00:00: 00:00 oral route 00 :00 every day x 5 days gabapentin 2020-03- No 1{table Q8H take 1 A ccessH 800 mg 03-31 t} tablet by [facility]alth tablet 00:00: 00:00 oral route 00 :00 3 times every day clopidogrel 2020-03- No take 1 Acc essH [...] No take 1 Acc essH 75 mg 03-3105 tablet (75 ealth tablet 00:00: 00:00 mg) [...] take 1 Acce ssH 1 mg tablet 03-3130 tablet (1 ea lth 00:00: 00:00 mg) [...] oral route 00 :00 every day cyclobenzap 2021-0 No 1{table BID [...] route 00 :00 every day rosuvastati 2020- No 1{table Q1D take 1 [facility] n 40 mg 11-02 t} tablet by [facility] tablet 00:00: 00:00 oral route 00 :00 every day Vitamin D2 2020- No 1{capsu Q1W take 1 A ccessH 1,250 mcg 11-02 le} capsule by [facility] (50,000 00:00: 00:00 oral route unit) 00 :00 every capsule week for 12 weeks Vitamin D2 2020- No 1{capsu Q1W take 1 A ccessH 1,250 mcg 11-02 le} capsule by [facility] (50,000 00:00: 00:00 oral route unit) 00 :00 every capsule week for 12 weeks Vitamin D2 2020- No 1{capsu Q1W take 1 A ccessH 1,250 mcg 11-02 le} capsule by [facility] (50,000 00:00: 00:00 oral route unit) 00 :00 every capsule week for 12 weeks Vitamin D2 2020- No 1{capsu Q1W take 1 A ccessH 1,250 mcg 11-02 le} capsule by [facility] (50,000 00:00: 00:00 oral route unit) 00 :00 every capsule week for 12 weeks Vitamin D2 2020- No 1{capsu Q1W take 1 A ccessH 1,250 mcg 11-02 le} capsule by [facility] (50,000 00:00: 00:00 oral route unit) 00 :00 every capsule week for 12 weeks Vitamin D2 2020- No 1{capsu Q1W take 1 A ccessH 1,250 mcg 11-02 le} capsule by [facility] (50,000 00:00: 00:00 oral route unit) 00 :00 every capsule week for 12 weeks Vitamin D2 2020- No 1{capsu Q1W take 1 A ccessH 1,250 mcg 11-02 le} capsule by [facility] (50,000 00:00: 00:00 oral route unit) 00 :00 every capsule week for 12 weeks Vitamin D2 2020- No 1{capsu Q1W take 1 A ccessH 1,250 mcg 11-02 le} capsule by [facility] (50,000 00:00: 00:00 oral route unit) 00 :00 every capsule week for 12 weeks Vitamin D2 2020- No 1{capsu Q1W take 1 A ccessH 1,250 mcg 11-02 le} capsule by [facility] (50,000 00:00: 00:00 oral route unit) 00 :00 every capsule week for 12 weeks Vitamin D2 2020- No 1{capsu Q1W take 1 A ccessH 1,250 mcg 11-02 le} capsule by [facility] (50,000 00:00: 00:00 oral route unit) 00 :00 every capsule week for 12 weeks Vitamin D2 2020- No 1{capsu Q1W take 1 A ccessH 1,250 mcg 11-02 le} capsule by [facility] (50,000 00:00: 00:00 oral route unit) 00 :00 every capsule week for 12 weeks Vitamin D2 2020- No 1{capsu Q1W take 1 A ccessH 1,250 mcg 11-02 le} capsule by [facility] (50,000 00:00: 00:00 oral route unit) 00 :00 every capsule week for 12 weeks Vitamin D2 2020- No 1{capsu Q1W take 1 A ccessH 1,250 mcg 11-02 le} capsule by [facility] (50,000 00:00: 00:00 oral route unit) 00 :00 every capsule week for 12 weeks Vitamin D2 2020- No 1{capsu Q1W take 1 A ccessH 1,250 mcg 11-02 le} capsule by [facility] (50,000 00:00: 00:00 oral route unit) 00 :00 every capsule week for 12 weeks Vitamin D2 2020- No 1{capsu Q1W take 1 A ccessH 1,250 mcg 11-02 le} capsule by [facility] (50,000 00:00: 00:00 oral route unit) 00 :00 every capsule week for 12 weeks Vitamin D2 2020- No 1{capsu Q1W take 1 A ccessH 1,250 mcg 11-02 le} capsule by [facility] (50,000 00:00: 00:00 oral route unit) 00 :00 every capsule week for 12 weeks Vitamin D2 2020- No 1{capsu Q1W take 1 A ccessH 1,250 mcg 11-02 le} capsule by [facility] (50,000 00:00: 00:00 oral route unit) 00 :00 every capsule week for 12 weeks Vitamin D2 2020- No 1{capsu Q1W take 1 A ccessH 1,250 mcg 11-02 le} capsule by [facility] (50,000 00:00: 00:00 oral route unit) 00 :00 every capsule week for 12 weeks Vitamin D2 2020- No 1{capsu Q1W take 1 A ccessH 1,250 mcg 11-02 le} capsule by [facility] (50,000 00:00: 00:00 oral route unit) 00 :00 every capsule week for 12 weeks Vitamin D2 2020- No 1{capsu Q1W take 1 A ccessH 1,250 mcg 11-02 le} capsule by [facility] (50,000 00:00: 00:00 oral route unit) 00 :00 every capsule week for 12 weeks Vitamin D2 2020- No 1{capsu Q1W take 1 A ccessH 1,250 mcg 11-02 le} capsule by [facility] (50,000 00:00: 00:00 oral route unit) 00 :00 every capsule week for 12 weeks Vitamin D2 2020- No 1{capsu Q1W take 1 A ccessH 1,250 mcg 11-02 le} capsule by [facility] (50,000 00:00: 00:00 oral route unit) 00 :00 every capsule week for 12 weeks tramadol 50 No 1{table Q12H take 1 Dx: A ccessH mg tablet 8-03 t} [place] [facility] [email or web address]th 00:00: oral route M79.644, 00 [...] ccessH mg tablet 10-29 t} tablet by [email or web address] e alth 00:00: oral route M79.644, 00 [...] 1 mg tablet 8-03 tablet (1 eal 00:00: mg) by 00 [...] Q12H take 1 Dx: [facility] mg tablet 8- 02-15 t} tablet by [email or web address], ealth 00:00: 00:00 oral route M79.644, 00 :00 every 12 M14.679, hours as E11.621, needed E11.40 tramadol 50 2020-0 2021- No 1{table Q12H take 1 Dx: [facility] mg tablet 8- 02-15 t} tablet by [email or web address], ealth 00:00: 00:00 oral route M79.644, 00 :00 every 12 M14.679, hours as E11.621, needed E11.40 tramadol 50 2020-0 202- No 1{table Q12H take 1 Dx: [facility] mg tablet 8-03 02-15 t} tablet by [email or web address], ealth 00:00: 00:00 oral route M79.644, 00 :00 every 12 M14.679, hours as E11.621, needed E11.40 tramadol 50 2020-2021- No 1{table Q12H take 1 Dx: [facility] mg tablet 10-29 t} [email or web address][facility]: [facility]:00 oral route M79.644, 00 :00 every 12 M14.679, hours as E11.621, needed E11.40 tramadol 50 2021- No 1{table Q12H take 1 Dx: [facility] mg tablet 10-29 t} tablet by [email or web address], [facility] 00:00: 00:00 oral route M79.644, 00 :00 every 12 M14.679, hours as E11.621, needed E11.40 tramadol 50 2021- No 1{table Q12H take 1 Dx: [facility] mg tablet 10-29 t} tablet by [email or web address] [facility] 00:00: 00:00 oral route M79.644, 00 :00 every 12 M14.679, hours as E11.621, needed E11.40 tramadol 50 2021- No 1{table Q12H take 1 Dx: [facility] mg tablet 10-29 t} tablet by [email or web address], [facility] 00:00: 00:00 oral route M79.644, 00 :00 every 12 M14.679, hours as E11.621, needed E11.40 tramadol 50 2021- No 1{table Q12H take 1 Dx: [facility] mg tablet 10-29 t} tablet by [email or web address], [facility] 00:00: 00:00 oral route M79.644, 00 :00 every 12 M14.679, hours as E11.621, needed E11.40 amlodipine 2020- No take 1 [facility] 5 mg tablet 10-29 tablet (5 ea lt 00:00: 00:00 mg) [...] daily amlodipine 2020-2020- No take 1 [facility] ss[facility] [...] day Humalog 2020- No inject [facility] KwikPen 10-29 [...] meals Humalog 2020- No inject [facility] KwikPen 8- 09-14 5-10 Units ealth (U-100) 00:00: 00:00 by [...] three times a day before meals Humalog 2020-2020- No inject [facility] KwikPen 8-06 04-14 5-10 [...] Q1D take 1 A ccessH 20 mg 8- 09-05 t} tablet by ealth tablet 00:00: [...] 1 Acc essH n 80 mg 8-06 03-07 tablet by ealth tablet 00:00: 00:00 Oral route 00 :00 1 time per day atorvastati 1-0 2021- No take 1 Acc ess[facility] n 80 mg -06 03-07 tablet by ealth tablet 00:00: 00:00 Oral [...] 1 Acc ess[facility] n 80 mg 8- tablet by ealth tablet 00:00: 00:00 Oral route 00 :00 1 time per day atorvastati 2020-0 2021- No take 1 Acc ess[facility] n 80 mg 10-29- tablet by ealth tablet 00:00: 00:00 Oral route 00 :00 1 time per day atorvastati 2020-0 2021- No take 1 Acc ess[facility] n 80 mg 10-29- tablet by ealth tablet 00:00: 00:00 Oral route 00 :00 1 time per day atorvastati 1-0 2021- No take 1 Acc ess[facility] n 80 mg 10-29- tablet by ealth tablet 00:00: 00:00 Oral route 00 :00 1 time per day atorvastati 1-0 2021- No take 1 Acc ess[facility] n 80 mg 10-29- tablet by ealth tablet 00:00: 00:00 Oral route 00 :00 1 time per day atorvastati 2020-0 2021- No take 1 Acc ess[facility] n 80 mg 10-29- tablet by ealth tablet 00:00: 00:00 Oral route 00 :00 1 time per day atorvastati 2021-0 2021- No take 1 Acc ess[facility] n 80 mg 8- tablet by ealth tablet 00:00: 00:00 Oral route 00 :00 1 time per day atorvastati 2021-0 2021- No take 1 Acc ess[facility] n 80 mg 8-06 03- tablet by ealth tablet 00:00: 00:00 Oral route 00 :00 1 time per day carvedilol 1-0 2021- No take 1 [facility] 25 mg -03 08-03 tablet (25 ealth tablet 00:00: 00:00 [...] No take 1 [facility] ss[facility] 25 mg -06 03- tablet (25 ealth tablet 00:00: 00:00 mg) by 00 :00 oral route 2 times per day with food carvedilol 2020- No take 1 [facility] 25 mg -06 03- tablet (25 ealth tablet 00:00: 00:00 [...] by mouth [facility] tablet 13:32: daily. [address] clopidogrel Yes 75mg QD Take [address] [facility] (PLAVIX) 75 7-04 by mouth Luke s mg tablet 13:32: daily. Medica l [address] [place] bumetanide Yes 1mg Q.5D Take 1 mg [...] by mouth. [facility] tablet 13:32: Medical [address] [place] atorvastati Yes 80mg QD Take [address] [facility] [facility] (LIPITOR) 7-04 by mouth Luke s 80 MG 13:32: every Medical tablet 10 evening. [place] isosorbide Yes Chronic 60mg QD Take 60 [...] by mouth Luke s tablet 13:32: daily. [address] clopidogrel Yes 75mg QD Take [address] [facility] (PLAVIX) 75 7-04 by mouth Luke s mg tablet 13:32: daily. Medica l 10 [place] bumetanide Yes 1mg Q.5D Take 1 mg [...] EC 7-04 by mouth. [facility] tablet 13:32: [address] atorvastati Yes 80mg QD Take [address] [facility] [facility] (LIPITOR) 7-04 by mouth Luke s 80 MG 13:32: every Medical tablet 10 evening. [place] isosorbide Yes Chronic 60mg QD Take 60 [...] by mouth Luke s tablet 13:32: daily. [address] clopidogrel Yes 75mg QD Take [address] [facility] (PLAVIX) 75 7-04 by mouth Luke s mg tablet 13:32: daily. Medica l [address] [place] [address] bumetanide Yes 1mg Q.5D Take 1 mg [...] by mouth. [facility] tablet 13:32: Medical [address] [place] atorvastati Yes 80mg QD Take [address] [facility] [facility] (LIPITOR) 7-04 by mouth Luke s 80 MG 13:32: every Medical tablet 10 evening. [place] isosorbide Yes Chronic 60mg QD Take 60 [...] by mouth Luke s tablet 13:32: daily. [address] clopidogrel Yes 75mg QD Take [address] [facility] (PLAVIX) 75 7-04 by mouth Luke s mg tablet 13:32: daily. Medica l [address] [place] [address] bumetanide Yes 1mg Q.5D Take 1 mg [...] by mouth. [facility] tablet 13:32: Medical [address] [place] atorvastati Yes 80mg QD Take [address] [facility] [facility] (LIPITOR) 7-04 by mouth Luke s 80 MG 13:32: every Medical tablet 10 evening. [place] isosorbide Yes Chronic 60mg QD Take 60 [...] by mouth Luke s tablet 13:32: daily. [address] clopidogrel Yes 75mg QD Take [address] [facility] (PLAVIX) 75 7-04 by mouth Luke s mg tablet 13:32: daily. Medica l [address] [place] bumetanide Yes 1mg Q.5D Take 1 mg [...] by mouth. [facility] tablet 13:32: Medical [address] [place] atorvastati Yes 80mg QD Take 80 mg [...] by mouth Luke s tablet 13:32: daily. [address] clopidogrel Yes 75mg QD Take [address] [facility] (PLAVIX) 75 7-04 by mouth Luke s mg tablet 13:32: daily. Medica l [address] [place] [address] bumetanide Yes 1mg Q.5D Take 1 mg [...] EC 7-04 by mouth. [facility] tablet 13:32: [address] bisacodyL Yes 5mg Take 1 [facility] [...] Q.5D Take [address] -clavulanat -07 03- tablet by Siddhartha alvarez 00:00: 23:59 mouth 2 Medical (AUGMENTIN) 00 :00 (two) Center 875-125 mg times per tablet daily for 7 days. doxycycline 2020- No 100mg Q.5D Take [address] (MONODOX) -07 03-11 capsule [facility] 100 MG 00:00: 23:59 (100 mg Medical capsule 00 :00 total) by Center mouth 2 (two) times daily for 7 days. amoxicillin 2020- No 1{tbl} Q.5D Take [address] -clavulanat -07 03- tablet by Siddhartha mallory e 00:00: 23:59 mouth 2 Medical (AUGMENTIN) 00 :00 (two) Center 875-125 mg times per tablet daily for 7 days. doxycycline 2020- No 100mg Q.5D Take [address] (MONODOX) -07 03- capsule [facility] 100 MG 00:00: 23:59 (100 mg Medical capsule 00 :00 total) by Center mouth 2 (two) times daily for 7 days. amoxicillin 2020-2020- No 1{tbl} Q.5D Take [address] -clavulanat -07 03-11 tablet by Siddhartha mallory e 00:00: 23:59 mouth 2 Medical (AUGMENTIN) [...] -clavulanat 7- 07-11 tablet by Siddhartha kes e 00:00: [...] I St (MONODOX) -07 03-11 capsule [facility] 100 MG 00:00: 23:59 (100 mg Medical capsule 00 :00 total) by Center mouth 2 (two) times daily for 7 days. amoxicillin 2020- No 1{tbl} Take [address] -clavulanat 7-07 03-04 tablet by Siddhartha kes e 00:00: [...] I St (MONODOX) -07 03- capsule [facility] 100 MG 00:00: 00:00 (100 mg Medical capsule 00 :00 total) by Center mouth every 12 (twelve) hours for 7 days. amoxicillin 2020- No 1{tbl} Take [address] -clavulanat 7-07 03-04 tablet by Siddhartha kes e 00:00: 00:00 mouth Medical (AUGMENTIN) 00 :00 every 12 Cent er 875-125 mg (twelve) per tablet hours for 7 days. doxycycline 2020- No 100mg Take [address] (MONODOX) -07 03- capsule [facility] 100 MG 00:00: 00:00 (100 mg Medical capsule 00 :00 total) by Center mouth every 12 (twelve) hours for 7 days. amoxicillin 2020- No 1{tbl} Take [address] -clavulanat 7-04 07-04 tablet by Siddhartha kes e 00:00: 00:00 mouth Medical (AUGMENTIN) 00 :00 every 12 Cent er 875-125 mg (twelve) per tablet hours for 7 days. doxycycline 1-0 1- No 100mg Take [address] (MONODOX) 7-04 07-04 capsule [facility] 100 MG 00:00: 00:00 (100 mg Medical capsule 00 :00 total) by Center mouth every 12 (twelve) hours for 7 days. amoxicillin 2020-1- No 1{tbl} Take [address] [...] 12 (twelve) hours for 7 days. amoxicillin 2020-1- No 1{tbl} Take [address] -clavulanat 7-04 07-04 tablet by Siddhartha kes e 00:00: 00:00 mouth Medical (AUGMENTIN) 00 :00 every 12 Cent er 875-125 mg (twelve) per tablet hours for 7 days. doxycycline 2020-0 1- No 100mg Take [address] (MONODOX) 7-04 07-04 capsule [facility] 100 MG 00:00: 00:00 (100 mg Medical capsule 00 :00 total) by Center mouth every 12 (twelve) hours for 7 days. amoxicillin 2020-1- No 1{tbl} Take [address] -clavulanat 7-04 07-04 tablet by Siddhartha kes e 00:00: 00:00 mouth Medical (AUGMENTIN) 00 :00 every 12 Cent er 875-125 mg (twelve) per tablet hours for 7 days. doxycycline 2020-0 1- No 100mg Take [...] 50U Q12H inject 50 [facility] ss[facility] FlexTouch 6-01-29 unit by ealth U-100 00:00: 00:00 subcutaneo [...] Q8H take 1 Dx: [facility] en 300 09-17- t} tablet by [email or web address], eal th mg-codeine [...] ssH 5 mg tablet 09-17 tablet by [facility] 00:00: 00:00 oral route 00 :00 every day Jandesireeia 50 2020- No 1{table Q1D take 1 A ccessH mg tablet 09-17 t} tablet by ealt h 00:00: 00:00 oral route 00 :00 every day acetaminoph 2020- No 1{table Q8H take 1 Dx: Access[facility] en 300 09-17- t} tablet by [email or web address], eal th mg-codeine [...] meals Humalog 2020- No inject [facility] KwikPen 09-17 08-03 5-10 Units ealth (U-100) 00:00: 00:00 by Insulin 100 00 :00 Subcutaneo unit/mL us route 3 subcutaneou times per s day on a medium sliding scale three times a day before meals metolazone 2020- No take 1 [facility] ss[facility] 5 mg tablet 6-22 08-03 tablet by ea lth 00:00: 00:00 oral [...] oral route 00 :00 every day acetaminoph 2020-0 202- No 1{table Q8H take 1 Dx: Access[facility] [...] times a day before meals lisinopril 2020-0 202- No 1{table Q1D take [...] 00:00 oral route 00 :00 every day Oroinuvia 100 2020-0 2021- No 1{table Q1D take [...] Santyl 250 No Q1D apply by Acc essH unit/gram [...] release 24 in the hr morning gabapentin 2020-0 2020- No 1{table Q8H take 1 A ccessH 800 mg 5-20 08-03 t} tablet by ealth tablet 00:00: 00:00 [...] Q8H take 1 A ccessH 800 mg -15 11- t} tablet by ealth tablet 00:00: 00:00 [...] Q8H take 1 A ccessH 800 mg -15 11- t} tablet by ealth tablet 00:00: 00:00 [...] Q8H take 1 A ccessH 800 mg -20 - t} tablet by ealth tablet 00:00: [...] take 1 A ccessH 800 mg 5-20 08-03 t} tablet by ealth tablet 00:00: 00:00 [...] Q8H take 1 A ccessH 800 mg -15 11- t} tablet by ealth tablet 00:00: 00:00 [...] Q1D inject 100 Acc essH FlexTouch 5-20 - unit by ealth U-100 00:00: 00:00 subcutaneo [...] mg tablet 5-20 06-22 t} tablet by lth 00:00: 00:00 oral route 00 :00 [...] Acc essH FlexTouch 5-20 06-22 [facility]:00: 00:00 subcutaneo Insulin 100 00 [...] mg tablet 5-20 -22 t} tablet by [facility] 00:00: 00:00 oral route 00 :00 every [...] mg tablet 5-20 -22 t} tablet by [facility] 00:00: 00:00 oral route 00 :00 every [...] morning Humalog 2020- No inject [facility] KwikPen -08 05-20 5-10 [...] Q2D take 1 A ccessH 2.5 mg 4 05-20 t} tablet by ealth tablet 00:00: [...] per mL) day in the [facility] morning s pen and evening [...] morning Humalog 2020- No inject [facility] KwikPen 4- 05-20 5-10 Units ealth (U-100) 00:00: 00:00 [...] No inject 50 [facility] ss[facility] FlexTouch 4- 05-20 Units by ealth U-100 00:00: 00:00 [...] 2020-2020- No take 1 [facility] mononitrate - 05-20 tablet (60 e alth ER 60 mg 00:00: 00:00 mg) by tablet,exte 00 :00 oral route nded once daily release 24 in the hr morning Humalog 2020-2020- No inject [facility] KwikPen 07-04 05-20 5-10 [...] 2020-2020- No take 1 [facility] mononitrate 4- 05-20 tablet (60 e alth ER 60 [...] bumetanide 0 2020- No take 1 [facility] 1 mg tablet 3-24 05-20 tablet (1 ea lth 00:00: 00:00 mg) by 00 :00 oral route 2 times per day bumetanide 0 2020- No take 1 [facility] 1 [...] 0 2020- No Q1D apply by Ac cessH unit/gram 1-29 05-20 topical ealth topical 00:00: 00:00 route ointment 00 :00 every day to cleansed affected area Santyl 250 2020- No Q1D apply by Ac cessH unit/gram 1-29 05-20 topical ealth topical 00:00: 00:00 route ointment 00 :00 every day to cleansed affected area Santyl 250 0 2020- No Q1D apply by Ac cessH unit/gram 1-29 05-20 topical ealth topical 00:00: 00:00 route ointment 00 :00 every day to cleansed affected area Santyl 250 0 2020- No Q1D apply by Ac cessH unit/gram 1-29 05-20 topical ealth topical 00:00: 00:00 route ointment 00 :00 every day to cleansed affected area Santyl 250 0 2020- No Q1D apply by Ac cessH unit/gram 1-29 05-20 topical ealth topical 00:00: 00:00 route ointment 00 :00 every day to cleansed affected area Santyl 250 0 2020- No Q1D apply by Ac cessH unit/gram 1-29 05-20 topical ealth topical 00:00: 00:00 route ointment 00 :00 every day to cleansed affected area Santyl 250 0 2020- No Q1D apply by Ac cessH unit/gram 1-29 05-20 topical ealth topical 00:00: 00:00 route ointment 00 :00 every day to cleansed affected area Santyl 250 0 2020- No Q1D apply by Ac cessH [...] 00:00 mouth Medical tablet 05 :00 daily. [place] amLODIPine 2020- No 5mg QD Take 5 [...] 00:00 mouth Medical tablet 05 :00 daily. [place] amLODIPine 2020- No 5mg QD Take 5 [...] [facility] det[facility]ir -09 Units [facility] U-100 00:00: subcutaneo Medica l (LEVEMIR) 00 usly 2 Center 100 unit/mL (two) injection times daily. amLODIPine Yes 5mg QD Take 1 [facility] (NORVASC) 5 - tablet (5 Lo es MG tablet 00:00: mg total) Med ical 00 by mouth Center daily. collagenase Yes Use for [facility] (SANTYL) 04-06 daily [facility] 250 units/g 00:00: dressing Me dical ointment 00 changes of Cente r foot wound.. sevelamer Yes 800mg Take 1 [facility] (RENVELA) - tablet [facility] 800 mg 00:00: (800 mg [...] [address] [facility] (ROCALTROL) 1- capsule [facility] 0.25 MCG 00:00: (0.25 mcg Medi renuka capsule 00 total) by Center mouth daily. metOLazone Yes 2.5mg Take [address] [facility] (ZAROXOLYN) -09 tablet [facility] 2.5 MG 00:00: (2.5 mg [...] [address] [facility] (ROCALTROL) 1- capsule [facility] 0.25 MCG 00:00: (0.25 mcg Medi renuka capsule 00 total) by Center mouth daily. metOLazone Yes 2.5mg Take [address] [facility] (ZAROXOLYN) - tablet [facility] 2.5 MG 00:00: (2.5 mg Medical tablet 00 total) by Center mouth every other day. insulin Yes 25U Q.5D Inject 25 [facility] detemir - Units [facility] U-100 00:00: subcutaneo Medica l [...] (NORVASC) 5 -09 tablet (5 Lo es MG tablet 00:00: mg total) Med ical 00 by mouth Center daily. collagenase Yes Use for [facility] (SANTYL) - daily [facility] 250 units/g 00:00: dressing Me dical ointment 00 changes of Cente r foot wound.. sevelamer Yes 800mg Take 1 [facility] (RENVELA) - tablet [facility] 800 mg 00:00: (800 mg [...] [facility] (MAXIPIME) 04-06 intravenou Siddhartha mallory MBP 2g in 00:00: 23:59 sly daily Me dical 100 mL NS 00 :00 for 41 Center days. doxycycline 2020- No 100mg Take [address] [facility] (MONODOX) 04-06 capsule Siddharthakes 100 MG 00:00: 23:59 (100 mg Medical [...] (ULTRAM) 50 05-21- tablet (50 L ukes mg tablet 00:00: 00:00 mg total) Me dical 00 :00 by mouth Center every 6 (six) hours as needed for Pain for up to 10 days. Max Daily Amount: 200 mg traMADoL 2019-03- No 50mg Take [address] [facility] (ULTRAM) 50 05-21- tablet (50 L ukes mg tablet 00:00: [...] Amount: 200 mg clindamycin 2019-03 No 300mg [id number] Take [address] [facility] (CLEOCIN) 05-21- [id number] capsule [facility] 300 MG 00:00: 23:59 3D (300 mg Medical capsule 00 :00 total) by Center mouth 3 (three) times daily for 7 days. clindamycin 2019-03- No 300mg Q.[id number] Take [address] [facility] (CLEOCIN) 05-21- [id number] capsule [facility] 300 MG 00:00: 23:59 3D (300 mg Medical capsule 00 :00 total) by Center mouth 3 (three) times daily for 7 days. clindamycin 2019-03- No 300mg Q.[id number] Take [address] [facility] (CLEOCIN) 05-21- [id number] capsule [facility] 300 MG 00:00: 23:59 3D (300 mg Medical capsule 00 :00 total) by Center mouth 3 (three) times daily for 7 days. clindamycin 2019-03- No 300mg Q.[id number] Take [address] [facility] (CLEOCIN) 05-21 [id number] capsule [facility] 300 MG 00:00: 23:59 3D (300 mg Medical capsule 00 :00 total) by Center mouth 3 (three) times daily for 7 days. clindamycin 2019-03- No 300mg Q.[id number] Take [address] [facility] (CLEOCIN) 05-21 [id number] capsule [facility] 300 MG 00:00: 23:59 3D (300 mg Medical capsule 00 :00 total) by Center mouth 3 (three) times daily for 7 days. clindamycin 2019-03- No 300mg Q.[id number] Take [address] [facility] (CLEOCIN) 05-21 [id number] capsule [facility] 300 MG 00:00: 23:59 3D (300 mg Medical capsule 00 :00 total) by Center mouth 3 (three) times daily for 7 days. clindamycin 2019-03- No 300mg Q.[id number] Take [address] [facility] (CLEOCIN) 05-21 [id number] capsule [facility] 300 MG 00:00: 23:59 3D (300 mg Medical capsule 00 :00 total) by Center mouth 3 (three) times daily for 7 days. gabapentin 2019-03 Yes Take by [facility] (NEURONTIN) 2-09 mouth. [facility] 800 MG 00:00: Medical tablet 00 [place] lisinopriL 2019-03 Yes take 1 [facility] (PRINIVIL,Z 2-09 tablet (40 Siddhartha kes ESTRIL) 40 00:00: mg) by Medic al MG tablet 00 oral route Cent er once daily gabapentin 2019-03 Yes Take by [facility] (NEURONTIN) 2-09 mouth. [facility] 800 MG 00:00: Medical tablet 00 [place] lisinopriL 2019-03 Yes take 1 [facility] (PRINIVIL,Z 2-09 tablet (40 Siddhartha kes ESTRIL) 40 00:00: mg) by Medic al MG tablet 00 oral route Cent er once daily gabapentin 2019-03 Yes Take by [facility] (NEURONTIN) 2-09 mouth. [facility] 800 MG 00:00: Medical tablet 00 [place] lisinopriL 2019-03 Yes take 1 [facility] (PRINIVIL,Z 2-09 tablet (40 Siddhartha kes ESTRIL) 40 00:00: mg) by Medic al MG tablet 00 oral route Cent er once daily gabapentin 2019-03 Yes Take by [facility] (NEURONTIN) 2-09 mouth. [facility] 800 MG 00:00: Medical tablet 00 [place] lisinopriL 2019-03 Yes take 1 [facility] (PRINIVIL,Z 2-09 tablet (40 Siddhartha kes ESTRIL) 40 00:00: mg) by Medic al MG tablet 00 oral route Cent er once daily gabapentin 2019-03 Yes Take by [facility] (NEURONTIN) 2-09 mouth. [facility] 800 MG 00:00: Medical tablet 00 [place] lisinopriL 2019-03 Yes take 1 [facility] (PRINIVIL,Z 2-09 tablet (40 Siddhartha kes ESTRIL) 40 00:00: mg) by Medic al MG tablet 00 oral route Cent er once daily gabapentin 2019-03 Yes Take by [facility] (NEURONTIN) 2-09 mouth. [facility] 800 MG 00:00: Medical tablet 00 [place] lisinopriL 2019-03 Yes take 1 [facility] (PRINIVIL,Z 2-09 tablet (40 Siddhartha kes ESTRIL) 40 00:00: mg) by Medic al MG tablet 00 oral route Cent er once daily gabapentin 2019-03 Yes Take by [facility] (NEURONTIN) 2-09 mouth. [facility] 800 MG 00:00: Medical tablet 00 [place] lisinopriL 2019-03 Yes take 1 [facility] [...] 2019-03- No take 1 [facility] mononitrate 2-09 04-08 tablet (60 e alth ER 60 mg [...] the subcutaneou morning s pen and evening carvedilol 2019-03- No take 1 [facility] 25 mg 05-07 tablet (25 ealth tablet 00:00: 00:00 mg) by 00 :00 oral route 2 times per day with food clopidogrel 2019-03- No take 1 Acc essH 75 mg 05-07 tablet (75 ealth tablet 00:00: 00:00 mg) by 00 :00 oral route once daily amlodipine 2019-03- No take 1 [facility] [...] for 3 ealt h U-100 00:00: 00:00 [facility] 00 :00 us route 2 supply unit/mL (3 times per mL) day in the [facility] morning s pen and evening amlodipine 2019-03- [...] daily amlodipine 2019-03- No take 1 [facility] ss[facility] [...] No take 1 Acc essH 75 mg 2-09 04-08 tablet (75 ealth tablet 00:00: 00:00 mg) [...] hr morning Levemir 2019-03- No inject 50 kit=[facility] FlexTouch 05-07 Units by for 3 ealt h U-100 00:00: 00:00 Subcutaneo month Insulin 100 00 :00 us route 2 supply unit/mL (3 times per mL) day in the subcutaneou morning s pen and evening bumetanide 2019-03- No take 1 [facility] 1 mg tablet 05-07- tablet (1 ea lth 00:00: 00:00 mg) by 00 :00 oral route 2 times per day bumetanide 2019-03- No take 1 [facility] 1 mg tablet 05-07 tablet (1 ea lth 00:00: 00:00 mg) by 00 :00 oral route 2 times per day bumetanide 2019-03- No take 1 [facility] 1 mg tablet 05-07- tablet (1 ea lth 00:00: 00:00 mg) by 00 :00 oral route 2 times per day bumetanide 2019-03- No take 1 [facility] 1 mg tablet 05-07-24 tablet (1 ea lth 00:00: 00:00 mg) by 00 :00 oral route 2 times per day bumetanide 2019-03- No take 1 [facility] 1 mg tablet 05-07-24 tablet (1 ea lth 00:00: 00:00 mg) by 00 :00 oral route 2 times per day bumetanide 2019-03- No take 1 [facility] 1 mg tablet 05-07-24 tablet (1 ea lth 00:00: 00:00 mg) [...] [address] [facility]ole-[facility] 12-[facility] prim} (160 mg of Me dical (BACTRIM 00 :00 trimethopr Cente r DS) 800-160 im total) mg per by mouth 2 tablet (two) times daily for 10 days smx-tmp DS (BACTRIM) 800-160 mg tabs (1tab q12 D10). sulfamethox 2020-0 2020- No 160mg{t Q.5D Take [address] [facility] azole-trime 12-01 rimetho tablet [facility] 00:00: 23:59 prim} (160 mg of Me dical (BACTRIM 00 :00 trimethopr Cente r DS) 800-160 im total) mg per by mouth 2 tablet (two) times daily for 10 days smx-tmp DS (BACTRIM) 800-160 mg tabs (1tab q12 D10). sulfamethox 2020-0 2020- No 160mg{t Q.5D Take [address] [facility] azole-trime 12-01 rimetho tablet [facility] 00:00: 23:59 prim} (160 mg of Me dical (BACTRIM 00 :00 trimethopr Cente r DS) 800-160 im total) mg per by mouth 2 tablet (two) times daily for 10 days smx-tmp DS (BACTRIM) 800-160 mg tabs (1tab q12 D10). sulfamethox 2020-0 2020- No 160mg{t Q.5D Take [address] [facility]ole-trime 12-[facility]} (160 mg of Me [...] Take [address] -acetaminop -08 04- tablet by Siddhartha robertson ([facility] 00:00: [...] 4 tablets amlodipine No take 1 [facility] 5 mg tablet 8-13 tablet (5 eal 00:00: mg) by 00 oral route once daily atorvastati No take 1 [facility] n 80 mg 8-13 tablet by ealth tablet 00:00: Oral route 00 1 time per day bumetanide No take 1 [facility] 1 mg tablet 8-13 tablet (1 eal 00:00: mg) by 00 oral route 2 times per day carvedilol 2020-0 No take 1 [facility] 25 mg [...] No take 1 [facility] 40 mg 8- tablet (40 ealth tablet 00:00: mg) by 00 oral route once daily metolazone No take 1 [facility] 5 mg tablet 11-08 tablet (5 eal th 00:00: mg) by [...] 00 :00 1 time per day bumetanide 2019-2019- No take 1 [...] every day Humalog No inject [facility] KwikPen 11-08 5-10 Units [...] per mL) day in the [facility] morning s pen and evening [...] 2019- take 1 [facility] 25 mg 11-08 [...] 2020- No inject 50 [facility] FlexTouch 11-08 [...] :00 3 times every day gabapentin 2019- No 1{table Q8H take 1 [...] take 1 [facility] 1 mg tablet 09-27-13 tablet (1 ea lth 00:00: 00:00 mg) [...] bumetanide 2019-0 2020- No take 1 [facility] 1 mg tablet 09-27- tablet (1 ea lth 00:00: 00:00 mg) by 00 :00 oral route 2 times per day bumetanide 2019-0 2019- No take 1 [facility] 1 mg tablet 09-27 tablet (1 ea lth 00:00: 00:00 mg) by 00 :00 oral route 2 times per day bumetanide 2019-0 2020- No take 1 [facility] 1 mg tablet 09-27 tablet (1 ea lth 00:00: 00:00 mg) by 00 :00 oral route 2 times per day bumetanide 2019-0 2020- No take 1 [facility] 1 mg tablet 09-27 tablet (1 ea lth 00:00: 00:00 mg) by 00 :00 oral route 2 times per day bumetanide 2019-0 2020- No take 1 [facility] 1 mg tablet 09-27 tablet (1 ea lth 00:00: 00:00 mg) by 00 :00 oral route 2 times per day bumetanide 2019-0 2020- No take 1 [facility] 1 mg tablet 09-27 tablet (1 ea lth 00:00: 00:00 mg) by 00 :00 oral route 2 times per day Levemir 2019-0 2019- No inject 50 [facility] FlexTouch 07-03 Units by ealt U-100 00:00: 00:00 Subcutaneo Insulin 100 00 :00 us route 2 unit/mL (3 times per mL) day in the subcutaneou morning s pen and evening Levemir 2019-0 2020- No inject 50 [facility] FlexTouch 07-03 Units by ealth U-100 00:00: 00:00 Subcutaneo [...] 2019- No inject 50 [facility] FlexTouch 4-07 08-13 Units by ealth U-100 00:00: 00:00 Subcutaneo Insulin 100 00 :00 us route 2 unit/mL (3 times per mL) day in the subcutaneou morning s pen and evening Levemir 2019- No inject 50 [facility] FlexTouch 4-07 08-13 Units by ealth U-100 00:00: 00:00 Subcutaneo Insulin 100 00 :00 us route 2 unit/mL (3 times per mL) day in the subcutaneou morning s pen and evening Levemir 2019- No inject 50 [facility] FlexTouch 4- 08-13 Units by ealth U-100 00:00: 00:00 Subcutaneo Insulin 100 00 :00 us route 2 unit/mL (3 times per mL) day in the subcutaneou morning s pen and evening Levemir 2019- No inject 50 [facility] FlexTouch 4- 08-13 Units by ealth U-100 00:00: 00:00 Subcutaneo Insulin 100 00 :00 us route 2 unit/mL (3 times per mL) day in the subcutaneou morning s pen and evening Levemir 2019- No inject 50 Acce ss[facility] FlexTouch 4-07 [...] No inject 50 [facility]ce [facility] FlexTouch - 08-13 Units by ealth U-100 00:00: 00:00 Subcutaneo Insulin 100 00 :00 us route 2 unit/mL (3 times per mL) day in the subcutaneou morning s pen and evening Levemir 2020-0 2020- No inject 50 [facility] FlexTouch 07-03 08-13 Units by ealth U-100 00:00: 00:00 Subcutaneo Insulin 100 00 :00 us route 2 unit/mL (3 times per mL) day in the subcutaneou morning s pen and evening Levemir 2020-0 2020- No inject 50 [facility] FlexTouch 07-03 08-13 Units by ealth U-100 00:00: 00:00 Subcutaneo Insulin 100 00 :00 us route 2 unit/mL (3 times per mL) day in the subcutaneou morning s pen and evening Levemir 2019-0 2020- No inject 50 [facility] FlexTouch 07-03 08-13 Units by ealth U-100 00:00: 00:00 Subcutaneo Insulin 100 00 :00 us route 2 unit/mL (3 times per mL) day in the subcutaneou morning s pen and evening Levemir 2020-0 2020- No inject 50 [facility] FlexTouch 07-03 08-13 Units by ealth U-100 00:00: 00:00 Subcutaneo Insulin 100 00 :00 us route 2 unit/mL (3 times per mL) day in the subcutaneou morning s pen and evening Levemir 2020-0 2020- No inject 50 [facility] FlexTouch 07-03 08-13 Units by ealth U-100 00:00: 00:00 Subcutaneo Insulin 100 00 :00 us route 2 unit/mL (3 times per mL) day in the subcutaneou morning s pen and evening Humalog 2019-0 2020- No inject [facility] KwikPen 07-02 08-13 5-10 Units ealth (U-100) 00:00: 00:00 by Insulin 100 00 :00 Subcutaneo unit/mL us route 3 subcutaneou times per s day on a sliding scale three times a day before meals amlodipine 2020-0 2020- No take 1 Acce [...] day metolazone 2019-2019- No take 1 Acce ss[facility] [...] No take 1 Acc essH 75 mg 07-02- tablet (75 ealth tablet 00:00: 00:00 mg) by 00 :00 oral route once daily carvedilol 2019- No take 1 [facility] 25 mg 07-02 tablet (25 ealth tablet 00:00: 00:00 mg) by 00 :00 oral route 2 times per day with food atorvastati 2019- No take 1 Acc ess[facility] n 80 mg 07-02 tablet by ealth tablet 00:00: 00:00 Oral route 00 :00 1 time per day amlodipine 2019- take 1 [facility] 5 [...] No take 1 [facility] 25 mg 4-06 08-13 tablet (25 ealth tablet 00:00: 00:00 mg) [...] 1 mg tablet 07-02 tablet (1 [facility] 00:00: 00:00 mg) by 00 [...] 2019- No inject 34 [facility] ss[facility] FlexTouch 4 04-07 Units by ealth U-100 00:00: 00:00 Subcutaneo Insulin 100 00 :00 us route 2 unit/mL (3 times per mL) day in the subcutaneou morning s pen and evening bumetanide 2019- No take 1 d/c lasix [...] No take 1 Acc ess[facility] 75 mg 1-07 04-06 tablet (75 ealth tablet 00:00: 00:00 mg) [...] isosorbide 2019- take 1 [facility] mononitrate 04-04 tablet [...] isosorbide 2019- take 1 [facility] mononitrate 04-04 tablet [...] isosorbide No take 1 [facility] mononitrate 1-07 04-06 tablet (60 e alth ER 60 mg [...] once daily Levemir 2019- inject 34 [facility] FlexTouch 04-04 Units [...] daily Humalog 2019- No inject [facility] KwikPen 04-0406 5-10 Units ealth (U-100) 00:00: 00:00 by Insulin 100 00 :00 Subcutaneo unit/mL us route 3 subcutaneou times per s day on a sliding scale three times a day before meals Levemir No inject 34 [facility]ce [facility] FlexTouch 04-04 Units by ealth U-100 00:00: 00:00 Subcutaneo Insulin 100 00 :00 us route 2 unit/mL (3 times per mL) day in the subcutaneou morning s pen and evening metolazone 2019- No take 1 [facility] 5 mg tablet 04-04 tablet (5 ea lth 00:00: 00:00 mg) by 00 :00 oral route once daily lisinopril No take 1 [facility] 40 [...] day with food atorvastati take 1 Acc essH n 80 [...] daily Levemir inject 34 [facility]ce ss[facility] FlexTouch 04-04- Units by ealth U-100 00:00: 00:00 Subcutaneo [...] once daily lisinopril No take 1 [facility] 40 [...] day with food atorvastati take 1 Acc essH n 80 [...] 2020- No inject 34 [facility] FlexTouch 04-04- Units by ealth U-100 00:00: 00:00 Subcutaneo Insulin 100 00 :00 us route 2 unit/mL (3 times per mL) day in the subcutaneou morning s pen and evening Humalog No inject [facility] KwikPen 04-04- 5-10 Units ealth (U-100) 00:00: 00:00 by [...] daily Levemir inject 34 Acce ss[facility] FlexTouch 1-07 04- Units by ealth U-100 00:00: 00:00 Subcutaneo [...] and evening Humalog 2019- No inject [facility] LolyikPen 04-04 5-10 Units ealth (U-100) 00:00: 00:00 [...] 2020- No inhale 3 A ccessH -albuterol 04-04-07 milliliter ea lth 0.5 mg-3 00:00: 00:00 [...] ipratropium 2019- 2020- No inhale 3 A ccessH -albuterol [...] ipratropium 2019- 2020- No inhale 3 A ccessH -albuterol [...] 2020- No inhale 3 A ccessH -albuterol 107 01- milliliter ea lth 0.5 mg-3 00:00: 00:00 [...] doses per day amlodipine take 1 Acce ssH 5 mg [...] essH n 80 mg 07-26 [facility] 00:[facility]: 00:00 Oral route 00 :00 [...] 34 [facility]ce [facility] FlexTouch 07-26 [facility] U[facility] 00:00: 00:00 Subcutaneo Insulin 100 00 [...] 34 [facility] FlexTouch 07-26 [facility] U[facility] 00:00: 00:00 Subcutaneo Insulin 100 00 [...] in the hr morning Levemir No inject 34 Ac[facility] ss[facility] FlexTouch 07-26 [...] day before meals clopidogrel take 1 Acc ess[facility] 75 mg [...] (3 times per mL) [facility] isosorbide 2019- [...] oral route 2 times per day atorvastati 2019- No take 1 Acc ess[facility] [...] the hr morning Humalog 2019- No inject [facility] KwikPen 07-26 [...] to 6 doses per day Humalog 2019- inject [facility] KwikPen 07-26 5-10 [...] food ProAir HFA No inhale 2 Ac cessH 90 07-26 puffs (180 ealth mcg/actuati 00:00: 00:00 mcg) by on aerosol 00 :00 inhalation inhaler route every 4 hours as needed metolazone 2019- No take 1 [facility] 5 mg tablet 07-26 tablet (5 ea lth 00:00: 00:00 mg) by 00 :00 oral route once daily ipratropium No inhale 3 A ccessH -albuterol [...] daily ProAir HFA No inhale 2 Ac cessH 90 07-26 [...] daily ProAir HFA No inhale 2 Ac cessH 90 07-26 [...] Administered Flu 00:00:00 vaccine without any complications. [facility] 03/06/2020 ; Source: New Immunization Record Flu (split) (3 Completed Note: [facility] th yrs or older) 9 Administered Flu 00:00:00 vaccine without any complications. [facility] 03/06/2020 ; Source: New Immunization Record Flu (split) (3 Completed Note: [facility] yrs or older) 9 Administered Flu 00:00:00 vaccine without any complications. [facility] 03/06/2020 ; Source: New Immunization Record Flu (split) ( Completed Note: [facility] th yrs or older) [...] Administered Flu 00:00:00 vaccine without any complications. [facility] 03/06/2020 ; Source: New Immunization Record Flu (split) (3 Completed Note: [facility] yrs or older) 9 Administered Flu 00:00:00 vaccine without any complications. [facility] 03/06/2020 ; Source: New Immunization Record Flu (split) (3 Completed Note: [facility] yrs or older) 9 Administered Flu 00:00:00 vaccine without any complications. [facility] 03/06/2020 ; Source: New Immunization Record Flu (split) (3 Completed Note: [facility] yrs or older) 9 Administered Flu 00:00:00 vaccine without any complications. [facility] 03/06/2020 ; Source: New Immunization Record Flu (split) (3 Completed Note: [facility] yrs or older) 9 Administered Flu 00:00:00 vaccine without any complications. [facility] 03/06/2020 ; Source: New Immunization Record Flu (split) (3 Completed Note: [facility] yrs or older) 9 Administered Flu 00:00:00 vaccine without any complications. [facility] 03/06/2020 ; Source: New Immunization Record Flu (split) (3 Completed Note: [facility] yrs or older) 9 Administered Flu 00:00:00 vaccine without any complications. [facility] 03/06/2020 ; Source: New Immunization Record Flu (split) (3 Completed Note: [facility] yrs or older) 9 Administered Flu 00:00:00 vaccine without any complications. [facility] 03/06/2020 ; Source: New Immunization Record Flu (split) (3 Completed Note: [facility] yrs or older) 9 Administered Flu 00:00:00 vaccine without any complications. [facility] 03/06/2020 ; Source: New Immunization Record Flu (split) (3 Completed Note: [facility] yrs or older) 9 Administered Flu 00:00:00 vaccine without any complications. [facility] 03/06/2020 ; Source: New Immunization Record Flu (split) (3 Completed Note: [facility] yrs or older) 9 Administered Flu 00:00:00 vaccine without any complications. [facility] 03/06/2020 ; Source: New Immunization Record Flu (split) (3 Completed Note: [facility] yrs or older) 9 Administered Flu 00:00:00 vaccine without any complications. [facility] 03/06/2020 ; Source: New Immunization Record Flu (split) (3 Completed Note: [facility] yrs or older) 9 Administered Flu 00:00:00 vaccine without any complications. [facility] 03/06/2020 ; Source: New Immunization Record Flu (split) (3 Completed Note: [facility] yrs or older) 9 Administered Flu 00:00:00 vaccine without any complications. [facility] 03/06/2020 ; Source: New Immunization Record Flu (split) (3 Completed Note: [facility] yrs or older) 9 Administered Flu 00:00:00 vaccine without any complications. [facility] 03/06/2020 ; Source: New Immunization Record Flu (split) (3 Completed Note: [facility] yrs or older) 9 Administered Flu 00:00:00 vaccine without any complications. [facility] 03/06/2020 ; Source: New Immunization Record Flu (split) (3 Completed Note: [facility] yrs or older) 9 Administered Flu 00:00:00 vaccine without any complications. [facility] 03/06/2020 ; Source: New Immunization Record Flu (split) (3 Completed Note: [facility] yrs or older) 9 Administered Flu 00:00:00 vaccine without any complications. [facility] 03/06/2020 ; Source: New Immunization Record Flu (split) (3 Completed Note: [facility] yrs or older) 9 Administered Flu 00:00:00 vaccine without any complications. [facility] 03/06/2020 ; Source: New Immunization Record Flu (split) (3 Completed Note: [facility] yrs or older) 9 Administered Flu 00:00:00 vaccine without any complications. [facility] 03/06/2020 ; Source: New Immunization Record Flu (split) (3 Completed Note: [facility] yrs or older) 9 Administered Flu 00:00:00 vaccine without any complications. [facility] 03/06/2020 ; Source: New Immunization Record Flu (split) (3 Completed Note: [facility] yrs or older) 9 Administered Flu 00:00:00 vaccine without any complications. [facility] 03/06/2020 ; Source: New Immunization Record Flu (split) (3 Completed Note: [facility] yrs or older) 9 Administered Flu 00:00:00 vaccine without any complications. [facility] 03/06/2020 ; Source: New Immunization Record [...] /min [facility] 09:13:00 Body Temperature 2021-05-13 36.50 Nano [facility] 09:13:00 Body mass index 2021-05-13 37.22 kg/m2 [facility] 09:13:00 Body height 2021-01-29 172.72 cm [facility] 09:34:00 Patient Body Weight 2021-01-29 112.672 kg [facility] 09:34:00 [facility] 2021-01-29 126 mm[Hg] [facility] Systolic 09:34:00 Int[facility]ascular 2021-01-29 76 mm[Hg] [facility] Diastolic 09:34:00 Heart Beat 2021-01-29 89 /min [facility] 09:34:00 Body Temperature 2021-01-29 36.28 Anno [facility] 09:34:00 Respiratory Rate 2021-01-29 18 /min [facility] 09:34:00 Body mass index 2021-01-29 37.77 kg/m2 [facility] 09:34:00 Body height 2020-12-03 172.72 cm [facility] 08:35:00 Patient Body Weight 2020-12-03 109.406 kg [facility] 08:35:00 [facility] 2020-12-03 121 mm[Hg] [facility] Systolic 08:35:00 Intravascular 2020-12-03 79 mm[Hg] [facility] Diastolic 08:35:00 Heart Beat 2020-12-03 80 /min [facility] 08:35:00 Body Temperature 2020-12-03 36.33 Nano [facility] 08:35:00 Respiratory Rate 2020-12-03 18 /min [facility] 08:35:00 Body mass index 2020-12-03 36.67 kg/m2 [facility] 08:35:00 Body height 2020-10-29 172.72 cm [facility] 08:12:00 Patient Body Weight 2020-10-29 117.480 kg [facility] 08:12:00 [facility] 2020-10-29 102 mm[Hg] [facility] Systolic 08:12:00 Intravascular 2020-10-29 67 mm[Hg] [facility] Diastolic 08:12:00 Heart Beat 2020-10-29 72 /min [facility] 08:12:00 Body Temperature 2020-10-29 36.28 Nano [facility] 08:12:00 Respiratory Rate 2020-10-29 18 /min [facility] 08:12:00 Body mass index 2020-10-29 39.38 kg/m2 [facility] 08:12:00 Heart rate 2020-09-29 76 /min [facility] 08:55[facility]00 [facility] Respiratory rate 2020-09-29 18 /min [facility] 08:[facility]:00 [facility] Oxygen saturation in 2020-09-29 97 /min [facility] Arterial blood by 08:55:00 [facility] nter Pulse oximetry Systolic blood 2020-09-29 134 mm[Hg] [facility] pressure 04:00:00 [facility] Diastolic blood 2020-09-29 76 mm[Hg] [facility] pressure 04:00:00 [facility] Body temperature 2020-09-[address] [facility] 04:00:00 [facility] Body weight 2020-09-[address] [facility] 13:36:00 [facility] Center BMI 2020-09-23 39.75 kg/m2 [facility] 13:36:00 [facility] Body height 2020-09-[address] [facility] 14:00:00 [facility] Body height 2020-09-17 172.72 cm [facility] 10:27:00 Patient Body Weight 2020-09-17 129.365 kg [facility] 10:27:00 [facility] 2020-09-17 122 mm[Hg] [facility] Systolic 10:27:00 Intravascular 2020-09-17 71 mm[Hg] [facility] Diastolic 10:27:00 Heart Beat 2020-09-17 82 /min [facility] 10:27:00 Body Temperature 2020-09-17 36.56 Nano [facility] 10:27:00 Respiratory Rate 2020-09-17 18 /min [facility] 10:27:00 Body mass index 2020-09-17 43.36 kg/m2 [facility] 10:27:00 Body height 2020-08-15 172.72 cm [facility] 15:21:00 Patient Body Weight 2020-08-15 122.016 kg [facility] 15:21:00 [facility] 2020-08-15 165 mm[Hg] [facility] Systolic 15:21:00 Int[facility]ascular 2020-08-15 97 mm[Hg] [facility] Diastolic 15:21:00 Heart Beat 2020-08-15 86 /min [facility] 15:21:00 Body Temperature 2020-08-15 36.28 Nano [facility] 15:21:00 Respiratory Rate 2020-08-15 18 /min [facility] 15:21:00 Body mass index 2020-08-15 40.90 kg/m2 [facility] 15:21:00 Body height 2020-04-26 172.72 cm [facility] 09:59:00 Patient Body Weight 2020-04-26 123.740 kg [facility] 09:59:00 [facility] 2020-04-26 120 mm[Hg] [facility] Systolic 09:59:00 Int[facility]ascular 2020-04-26 66 mm[Hg] [facility] Diastolic 09:59:00 Heart Beat 2020-04-26 85 /min [facility] 09:59:00 Body Temperature 2020-04-26 36.11 Nano [facility] 09:59:00 Respiratory Rate 2020-04-26 18 /min [facility] 09:59:00 Body mass index 2020-04-26 41.48 kg/m2 [facility] 09:59:00 Body height 2020-03-06 172.72 cm [facility] 14:18:00 Patient Body Weight 2020-03-06 123.740 kg [facility] 14:18:00 Int[facility]ascular 2020-03-06 115 mm[Hg] [facility] Systolic 14:18:00 Intravascular 2020-03-06 71 mm[Hg] [facility] Diastolic 14:18:00 Heart Beat 2020-03-06 73 /min [facility] 14:18:00 Body Temperature 2020-03-06 36.22 Nano [facility] 14:18:00 Respiratory Rate 2020-03-06 18 /min [facility] 14:18:00 Body mass index 2020-03-06 41.48 kg/m2 [facility] 14:18:00 Body height 2019-11-09 172.72 cm [facility] 16:08:00 Patient Body Weight 2019-11-09 118.932 kg [facility] 16:08:00 Int[facility]ascular 2019-11-09 124 mm[Hg] [facility] Systolic 16:08:00 Intravascular 2019-11-09 81 mm[Hg] [facility] Diastolic 16:08:00 Heart Beat 2019-11-09 66 /min [facility] 16:08:00 Body Temperature 2019-11-09 36.50 Nano [facility] 16:08:00 Respiratory Rate 2019-11-09 18 /min [facility] 16:08:00 Body mass index 2019-11-09 39.87 kg/m2 [facility] 16:08:00 Body height 2019-07-03 172.72 cm [facility] 10:14:00 Patient Body Weight 2019-07-03 121.381 kg [facility] 10:14:00 Int[facility]ascular 2019-07-03 128 mm[Hg] [facility] Systolic 10:14:00 Intravascular 2019-07-03 77 mm[Hg] [facility] Diastolic 10:14:00 Heart Beat 2019-07-03 85 /min [facility] 10:14:00 Body Temperature 2019-07-03 36.94 Nano [facility] 10:14:00 Body mass index 2019-07-03 [...] /min [facility] 14:21:00 Body Temperature 2019-04-04 36.78 Nano [facility] 14:21:00 Respiratory Rate 2019-04-04 18 [...] Diastolic 15:36:00 Heart Beat 2015-05-03 75 /[facility] 15[facility] Body Temperature 2015-05-03 97.90 [degF] [facility] 15:36:00 Respiratory Rate 2015-05-03 20 /min [facility] 15:36:00 Body mass index 2015-05-03 37.20 kg/m2 [facility] 15:36:00 Procedures Procedure Date / Time Performing Clinician Source Performed COORD/COLLAB CONTACT 2021-08-05 00:00:00 [facility] PHONE CALL TO 2021-08-05 00:00:00 [facility] 2021-05-20 00:00[facility] TO 2021-05-20 00:00:00 [facility] SHORT TERM- SCREENED, 2021-05-20 00:00:00 [facility] REFUSED PHONE CALL TO 2021-05-16 00:00:00 [facility] SHORT TERM - SCREENED - 2021-05-15 00:00[facility]AL[facility] CALL TO 2021-05-15 00:00:00 [facility] SHORT TERM - SCREENED - 2021-05-14 00:00:00 [facility] QUALIFIED SHORT TERM - COOR/HUGO 2021-05-14 00:00:00 [facility] SHORT TERM PATIENT AT ER 2021-05-14 00:00:00 Acc [facility] SINCE LAST VISIT GLUCOSE BLOOD TEST 2021-05-13 00:00:00 [facility] OFFICE/OUTPATIENT VISIT 2021-05-13 00:00:00 [facility] EST OFFICE/OUTPATIENT VISIT 2021-01-29 00:00:00 [facility] EST COMPREHEN METABOLIC 2021-01-29 00:00:00 [facility] alth PANEL URINALYSIS AUTO W/SCOPE 2021-01-29 00:00:00 [facility] UR ALBUMIN QUANTITATIVE 2021-01-29 00:00:00 [facility] GLYCOSYLATED HEMOGLOBIN 2021-01-29 00:00:00 [facility] TEST VITAMIN D 25 HYDROXY 2021-01-29 00:00:00 [facility] ASSAY OF NATRIURETIC 2021-01-29 00:00:00 [facility] PEPTIDE ASSAY OF BLOOD/URIC ACID 2021-01-29 00:00[facility] PHOSPHORUS 2021-01-29 00:00:00 [facility] RBC SED RATE AUTOMATED 2021-01-29 00:00:00 [facility] ASSAY OF MAGNESIUM 2021-01-29 00:00:00 [facility] C-REACTIVE PROTEIN 2021-01-29 00:00:00 [facility] GLUCOSE BLOOD TEST 2020-12-03 00:00:00 [facility] OFFICE/OUTPATIENT VISIT 2020-12-03 00:00:00 [facility] EST Insulin injection 2020-12-03 00:00:00 [facility] th THER/PROPH/DIAG INJ 2020-12-03 00:00:00 [facility] SC/IM COMPREHEN METABOLIC 2020-12-03 00:00:00 [facility] alth PANEL ASSAY OF NATRIURETIC 2020-12-03 00:00:00 [facility] PEPTIDE ASSAY OF PHOSPHORUS 2020-12-03 00:00:00 [facility] alth GLUCOSE BLOOD TEST 2020-10-29 00:00:00 [facility] OFFICE/OUTPATIENT VISIT 2020-10-29 00:00:00 [facility] EST COMPLETE CBC W/AUTO DIFF 2020-10-29 00:00:00 Acc [facility] WBC COMPREHEN METABOLIC 2020-10-29 00:00:00 [facility] alth PANEL URINALYSIS AUTO W/SCOPE 2020-10-29 00:00:00 [facility] LIPID PANEL 2020-10-29 00:00:00 [facility] GLYCOSYLATED HEMOGLOBIN 2020-10-29 00:00:00 [facility] TEST VITAMIN D 25 HYDROXY 2020-10-29 00:00:00 [facility] ASSAY OF NATRIURETIC 2020-10-29 00:00:00 [facility]alt PEPTIDE ASSAY OF MAGNESIUM 2020-10-29 00:00:00 [facility] ASSAY OF PARATHORMONE 2020-10-29 00:00:00 [facility] HAND, MINIMUM THREE 2020-10-29 00:00:00 [facility] VIEWS, RADIOLOGIC EXAM CBC W/PLT COUNT & AUTO 2020-09-29 04:29:00 Gretchen Hensley [facility] DIFFERENTIAL Center BASIC METABOLIC PANEL 2020-09-29 04:29:00 Gretchen Hensley [facility] (7) Center MAGNESIUM 2020-09-29 04:29:00 Hensley, [facility] CBC W/PLT COUNT & AUTO 2020-09-29 04:29:00 Ayden [facility] POCT-GLUCOSE METER 2020-09-28 17:27:00 Shieh [facility] POCT-GLUCOSE METER 2020-09-28 12:49:00 Shieh, [facility] POCT-GLUCOSE METER 2020-09-28 05:58:00 Shieh, [facility] CBC W/PLT COUNT & AUTO 2020-09-28 04:49:00 Ayden [facility] BASIC METABOLIC PANEL 2020-09-28 04:49:00 [facility] (7) [place] MAGNESIUM 2020-09-28 04:49:00 [facility] CBC W/PLT COUNT & AUTO 2020-09-28 04:49:00 Ayden [facility] POCT-GLUCOSE METER 2020-09-27 20:57:00 Shieh [facility] POCT-GLUCOSE METER 2020-09-27 19:07:00 Shieh, [facility] POCT-GLUCOSE METER 2020-09-27 12:26:00 Shieh [facility] POCT-GLUCOSE METER 2020-09-27 06:36:00 Shieh [facility] CBC W/PLT COUNT & AUTO 2020-09-27 03:45:00 [place] [facility] BASIC METABOLIC PANEL 2020-09-27 03:45:00 [facility] (7) [place] MAGNESIUM 2020-09-27 03:45:00 [facility] CBC W/PLT COUNT & AUTO 2020-09-27 03:45:00 [facility] POCT-GLUCOSE METER 2020-09-26 23:12:00 Shieh [facility] POCT-GLUCOSE METER 2020-09-26 18:20:00 Parish [facility] POCT-GLUCOSE METER 2020-09-26 13:31:00 Parish [facility] XR FOOT 3 VIEWS LEFT 2020-09-26 08:38:00 [facility] POCT-GLUCOSE METER 2020-09-26 08:34:00 Parish [facility] ANAEROBIC CULTURE 2020-09-26 08:07:57 [facility] SURGICALLY OBTAINED 2020-09-26 08:07:57 [facility] CULTURE + GRAM STAIN [facility] ANAEROBIC CULTURE 2020-09-26 08:02:[address] [facility] SURGICALLY OBTAINED 2020-09-26 08:02:39 [facility] CULTURE + GRAM STAIN [facility] TISSUE EXAM 2020-09-26 07:56:[address] [facility] AMPUTATION,TOE 2020-09-26 07:12:[address] [facility] CBC W/PLT COUNT & AUTO 2020-09-26 04:37:00 Ayden [facility] BASIC METABOLIC PANEL 2020-09-26 04:37:00 [facility] (7) Center MAGNESIUM 2020-09-26 04:37:00 [facility] B-TYPE NATRIURETIC 2020-09-26 04:37:00 [facility] (BNP) [facility] CBC W/PLT COUNT & AUTO 2020-09-26 04:37:00 [facility] POCT-GLUCOSE METER 2020-09-25 21:10:00 Parish [facility] POCT-GLUCOSE METER 2020-09-25 16:15:00 Parish [facility] POCT-GLUCOSE METER 2020-09-25 11:21:00 Yoni Lugo [facility] POCT-GLUCOSE METER 2020-09-25 06:02:00 Hensley [facility] CBC W/PLT COUNT & AUTO 2020-09-25 04:44:00 [facility] BASIC METABOLIC PANEL 2020-09-25 04:44:00 Hensley [facility] (7) [place] MAGNESIUM 2020-09-25 04:44:00 [facility] CBC W/PLT COUNT & AUTO 2020-09-25 04:44:00 [facility] POCT-GLUCOSE METER 2020-09-24 20:36:00 [facility] POCT-GLUCOSE METER 2020-09-24 17:37:00 [facility] HC ARTERIAL DOPPLER LEGS 2020-09-24 13:22:00 Laura Nguyen [facility] POCT-GLUCOSE METER 2020-09-24 06:34:00 H[facility]ley [facility] CBC W/PLT COUNT & AUTO 2020-09-24 05:11:00 Hensley [facility] BASIC METABOLIC PANEL 2020-09-24 05:11:00 [facility] (7) [place] MAGNESIUM 2020-09-24 05:11:00 [facility] PTH, INTACT 2020-09-24 05:11:00 Nneka [facility] VITAMIN D, 25-HYDROXY 2020-09-24 05:11:00 Nneka [facility] CBC W/PLT COUNT & AUTO 2020-09-24 05:11:00 [facility] IRON, TIBC, % SAT. 2020-09-24 05:10:00 Nneka [facility] (WITHOUT FERRITIN) [facility] FERRITIN 2020-09-24 05:10:00 Nneka, [facility] POCT-GLUCOSE METER 2020-09-23 21:25:00 [facility] RE[facility] COMPLETE 2020-09-23 20:30:00 Nneka, [facility] URINALYSIS W/ REFLEX 2020-09-23 16:58:00 Nneka, [facility] URINE CULTURE [facility] SODIUM, RANDOM URINE 2020-09-23 16:58:00 Nneka, [facility] CHLORIDE, RANDOM URINE 2020-09-23 16:58:00 Nneka, max Suh CH I [facility] POTASSIUM, RANDOM URINE 2020-09-23 16:58:00 Nneka, max Suh C HI [facility] UREA NITROGEN, RANDOM 2020-09-23 16:58:00 Nneka, [facility] URINE [facility] CREATININE, RANDOM URINE 2020-09-23 16:58:00 Nneka, [facility] PROTEIN, RANDOM URINE 2020-09-23 16:58:00 Nneka, [facility] POCT-GLUCOSE METER 2020-09-23 16:20:00 Ayden [facility] POCT-GLUCOSE METER 2020-09-23 11:40:00 Ayden [facility] 2D ECHO W/ DOPPLER 2020-09-23 08:00:54 Hensley [facility] (CW/PW/COLOR) [place] POCT-GLUCOSE METER 2020-09-23 07:58:00 [facility] XR FOOT 3 VIEWS LEFT 2020-09-23 07:33:00 Laura Nguyen [facility] CBC W/PLT COUNT & AUTO 2020-09-23 04:51:00 Gretchen Hensley [facility] DIFFERENTIAL Center BASIC METABOLIC PANEL 2020-09-23 04:51:00 Ayden [facility] (7) Center MAGNESIUM 2020-09-23 04:51:00 Gretchen Hensley [facility] PHOSPHORUS 2020-09-23 04:51:00 [facility] W/[facility]T COUNT & AUTO 2020-09-23 04:51:00 Gretchen Hensley [facility] DIFFERENTIAL Center POCT-GLUCOSE METER 2020-09-22 20:46:00 Hensley [facility] POCT-GLUCOSE METER 2020-09-22 17:01:00 Ayden [facility] SARS-COV2/RT-PCR ([facility] & 2020-09-22 10:50:00 [facility] REF LABS) [place] B-TYPE NATRIURETIC 2020-09-22 06:54:00 McdadeDavid [facility] FACTOR (BNP) Kathleen [place] BASIC METABOLIC PANEL 2020-09-22 06:54:[address] [facility] (7) Kathleen [place] CBC W/PLT COUNT & AUTO 2020-09-22 06:54:00 McdadeDavid [facility] DIFFERENTIAL [facility] PT/APTT 2020-09-22 06:54:00 McdadeDavid [facility] TROPONIN I 2020-09-22 06:54:00 McdadeDavid [facility] CBC W/PLT COUNT & AUTO 2020-09-22 06:54:00 David Riddle [facility] DIFFERENTIAL [facility] ED ECG INTERPRETATION 2020-09-22 06:40:53 McdadeDavid [facility] XR CHEST 1 VIEW PORTABLE 2020-09-22 06:36:[address] [facility] / BEDSIDE [facility] REPORT OF PROCEDURE - 2020-09-22 00:00:00 Provider, Molina [facility] ENDOSCOPY SCAN Scanning Center GLUCOSE BLOOD TEST 2020-09-17 00:00:00 [facility] OFFICE/OUTPATIENT VISIT 2020-09-17 00:00:00 [facility] EST GLUCOSE BLOOD TEST 2020-08-15 00:00[facility] 2020-08-15 00:00:00 [facility] EST COMPREHEN METABOLIC 2020-08-15 00:00:00 [facility] PANEL LIPID PANEL 2020-08-15 [facility] HEMOGLOBIN 2020-08-15 00:00:00 [facility] TEST ASSAY OF NATRIURETIC 2020-08-15 00:00:00 [facility] PEPTIDE PFIZER- ADM SARSCOV2 2020-07-24 00:00:00 [facility] 30MCG/0.3ML 2ND PFIZER-ADM SARSCOV2 2020-06-28 00:00:00 [facility] 30MCG/0.3ML 1ST CBC W/PLT COUNT & AUTO 2020-04-30 18:40:00 David Riddle [facility] DIFFERENTIAL [facility] LACTIC ACID, VENOUS 2020-04-30 18:40:00 [facility] COMPREHENSIVE METABOLIC 2020-04-30 18:40:[address] [facility] PANEL [facility] PROTHROMBIN TIME/INR 2020-04-30 18:40:00 [facility] TYPE AND SCREEN, 2020-04-30 18:40:00 David Riddle [facility] AUTOMATED [facility] CBC W/PLT COUNT & AUTO 2020-04-30 18:40:00 David Riddle [facility] DIFFERENTIAL [facility] GLUCOSE BLOOD TEST 2020-04-26 00:00:00 [facility] OFFICE/OUTPATIENT VISIT 2020-04-26 00:00:00 Acce [facility] EST POCT-GLUCOSE METER 2020-04-06 08:02:00 Frandy Lugo [facility] BASIC METABOLIC PANEL 2020-04-06 04:26:00 Frandy Lugo [facility] (7) Center CBC W/PLT COUNT & AUTO 2020-04-06 04:26:[address] [facility] DIFFERENTIAL Center CBC W/PLT COUNT & AUTO 2020-04-06 04:26:00 Frandy Lugo [facility] Center POCT-GLUCOSE METER 2020-04-05 22:06:00 Frandy Lugo [facility] POCT-GLUCOSE METER 2020-04-05 15:18:00 Frandy Lugo [facility] POCT-GLUCOSE METER 2020-04-05 11:37:00 Frandy Lugo [facility] IR PICC LINE PLACEMENT 2020-04-05 11:14:00 Frandy Lugo [facility] OLDER TH[facility] 5 YRS [place] POCT-GLUCOSE METER 2020-04-05 09:23:00 Frandy Lugo [facility] POCT-GLUCOSE METER 2020-04-05 07:59:00 Frandy Lugo [facility] BASIC METABOLIC PANEL 2020-04-05 04:40:00 Frandy Lugo [facility] (7) [place] CBC W/PLT COUNT & AUTO 2020-04-05 04:40:[address] [facility] DIFFERENTIAL [place] CBC W/PLT COUNT & AUTO 2020-04-05 04:40:00 Frandy Lugo [facility] VANCOMYCIN LEVEL, TROUGH 2020-04-04 23:37:00 Stephane Echavarria CH I [facility] POCT-GLUCOSE METER 2020-04-04 21:14:00 Frandy Lugo [facility] POCT-GLUCOSE METER 2020-04-04 15:41:00 Parish Frandy C [facility] POCT-GLUCOSE METER 2020-04-04 11:36:00 Frandy Lugo [facility] POCT-GLUCOSE METER 2020-04-04 07:45:00 Frandy Lugo [facility] PROTEIN ELECTROPHORESIS, 2020-04-04 05:23:00 [facility] SERUM [facility] PTH, INTACT 2020-04-04 05:23:00 [facility] BASIC METABOLIC PANEL 2020-04-04 05:23:00 Frandy Lugo [facility] (7) Center CBC W/PLT COUNT & AUTO 2020-04-04 05:23:[address] [facility] DIFFERENTIAL Center CBC W/PLT COUNT & AUTO 2020-04-04 05:23:[address] [facility] DIFFERENTIAL Center POCT-GLUCOSE METER 2020-04-03 21:31:00 Frandy Lugo [facility] KAPPA / LAMBDA LIGHT 2020-04-03 17:10:00 [facility] CHAINS, SERUM [facility] HC LAB HIV-1 AG 2020-04-03 17:10:00 [facility] W/HIV-1&2 AB [facility] HEPATITIS PANEL, ACUTE 2020-04-03 17:10:[address] [facility] Center CBC W/PLT COUNT & AUTO 2020-04-03 17:10:00 Te [facility] BASIC METABOLIC PANEL 2020-04-03 17:10:00 Frandy Lugo [facility] (7) Center CBC W/PLT COUNT & AUTO 2020-04-03 17:10:[address] [facility] DIFFERENTIAL [facility] POCT-GLUCOSE METER 2020-04-03 16:05:00 Frandy Lugo [facility] POCT-GLUCOSE METER 2020-04-03 11:34:00 Frandy Lugo [facility] PROTEIN, RANDOM URINE 2020-04-03 10:52:00 Te [facility] SODIUM, RANDOM URINE 2020-04-03 10:39:00 Frandy Lugo [facility] CREATININE, RANDOM URINE 2020-04-03 10:39:00 Frandy Lugo [facility] UREA NITROGEN, RANDOM 2020-04-03 10:39:00 Frandy Lugo [facility] URINE Center URINALYSIS W/ 2020-04-03 10:39:00 Frandy Lugo [facility] B-TYPE NATRIURETIC 2020-04-03 10:20:00 Milagros Lainez [facility] FACTOR (BNP) [facility] US RENAL COMPLETE 2020-04-03 08:45:00 Frandy [facility] POCT-GLUCOSE METER 2020-04-03 07:27:00 [facility] CBC (HEMOGRAM ONLY) 2020-04-03 04:48[facility]EL 2020-04-03 04:48:00 Lilliam, [facility] (7) Center PHOSPHORUS 2020-04-03 04:48:[address] [facility] VANCOMYCIN LEVEL, TROUGH 2020-04-02 22:02:00 Jazmin Willard [facility] POCT-GLUCOSE METER 2020-04-02 21:17:00 Lilliam, [facility] LOWER EXTREMITY 2020-04-02 17:38:00 [facility] WITHOUT IV CONTRAST LEFT Center POCT-GLUCOSE METER 2020-04-02 15:51:00 Lilliam, [facility] POCT-GLUCOSE METER 2020-04-02 11:43:00 [facility] CBC (HEMOGRAM ONLY) 2020-04-02 06:31:00 [facility] BASIC METABOLIC PANEL 2020-04-02 06:31:00 [facility] (7) [place] POCT-GLUCOSE METER 2020-04-01 15:37:00 [facility] ANAEROBIC CULTURE 2020-04-01 13:30:14 [facility] SURGICALLY OBTAINED 2020-04-01 13:30:14 [facility] CULTURE + GRAM STAIN [facility] ANAEROBIC CULTURE 2020-04-01 13:21:05 [facility] Center SURGICALLY OBTAINED 2020-04-01 13:21:05 [facility] CULTURE + GRAM STAIN [facility] TISSUE EXAM 2020-04-01 13:12:00 Patrick [facility] POCT-GLUCOSE METER 2020-04-01 12:48:00 [facility]WOUND 2020-04-01 11:52:00 Patrick [facility] LOWER [facility] POCT-GLUCOSE METER 2020-04-01 11:37:00 [facility] 12-[facility]AD 2020-04-01 08:42:02 Unknown, [facility] ECG 12-LEAD 2020-04-01 08:42:02 Unknown, [facility] POCT-GLUCOSE METER 2020-04-01 07:24:00 [facility] BASIC METABOLIC PANEL 2020-04-01 03:58:00 [facility] () [place] POCT-GLUCOSE METER 2020-03-31 20:42:00 [facility] POCT-GLUCOSE METER 2020-03-31 15:27:00 [facility] POCT-GLUCOSE METER 2020-03-31 11:22:00 [facility] POCT-GLUCOSE METER 2020-03-31 07:18:00 [facility] BASIC METABOLIC PANEL 2020-03-31 04:47:00 [facility] () [place] HEMOGLOBIN A1C 2020-03-31 04:47:00 [facility] CBC W/PLT COUNT & AUTO 2020-03-31 04:47:00 [facility] DIFFERENTIAL [place] CBC W/PLT COUNT & AUTO 2020-03-31 04:47:00 [facility] POCT-GLUCOSE METER 2020-03-30 21:59:00 [facility] XR FOOT 3 VIEWS LEFT 2020-03-30 21:05:00 [facility] WOUND CULTURE + GRAM 2020-03-30 20:54:00 Cody [facility] STAIN Center SARS-COV2/RT-PCR ([facility] & 2020-03-30 20:50:[address] [facility] REF LABS) Center BLOOD CULTURE 2020-03-30 20:49:00 Cody [facility] CBC W/PLT COUNT & AUTO 2020-03-30 20:49:00 Cody [facility] DIFFERENTIAL Center BASIC METABOLIC PANEL 2020-03-30 20:49:00 [facility] (7) [place] CBC W/PLT COUNT & AUTO 2020-03-30 20:49:00 [facility] CARDIAC CATH REPORT - 2020-03-30 00:00:00 Provider [facility] SCAN Scanning Center REPORT OF PROCEDURE - 2020-03-30 00:00:00 Provider [facility] ENDOSCOPY SCAN Scanning [facility] BLOOD CULTURE 2020-03-20 01:07:00 Mcdade [facility] LACTIC ACID, VENOUS 2020-03-20 01:07:00 [facility] CBC W/PLT COUNT & AUTO 2020-03-20 00:55:00 [facility] DIFFERENTIAL [facility] BASIC METABOLIC PANEL 2020-03-20 00:55:00 [facility] (7) [facility] C-REACTIVE PROTEIN 2020-03-20 00:55:00 Mcdade [facility] CBC W/PLT COUNT & AUTO 2020-03-20 00:55:00 [facility] DIFFERENTIAL [facility] BLOOD CULTURE 2020-03-20 00:54:00 [facility] XR FOOT 3 VIEWS LEFT 2020-03-20 00:37:00 [facility] GLUCOSE BLOOD TEST 2020-03-06 00:00:00 [facility] Insulin injection 2020-03-06 00:00:00 [facility] THER/PROPH/DIAG INJ 2020-03-06 00:00:00 [facility] SC/IM IMMUNIZATION ADMIN 2020-03-06 00:00:00 [facility] IIV4 VACCINE SPLT 0.5 ML 2020-03-06 00:00:00 [facility] IM VFC OFFICE/OUTPATIENT VISIT 2020-03-06 00:00:00 [facility] EST COMPREHEN METABOLIC 2020-03-06 00:00:00 [facility] PANEL LIPID PANEL 2020-03-06 00:00:00 [facility] GLYCOSYLATED HEMOGLOBIN 2020-03-06 00:00:00 [facility] TEST INCISION AND DRAINAGE 2019 07:17:11 Tyshawn Serra [facility] GLUCOSE BLOOD TEST 2019-11-09 00:00[facility] 2019-11-09 00:00:00 [facility] EST COMPREHEN METABOLIC 2019-11-09 00:00:00 [facility] PANEL LIPID PANEL 2019-11-09 00:00:00 [facility] GLYCOSYLATED HEMOGLOBIN 2019-11-09 00:00:00 [facility] TEST GLUCOSE BLOOD TEST 2019-07-03 00:00[facility]00 [facility] 2019-07-03 00:00:00 [facility] EST COMPREHEN METABOLIC 2019-07-03 00:00:00 [facility] PANEL LIPID PANEL 2019-07-03 00:00:00 [facility] GLYCOSYLATED HEMOGLOBIN 2019-07-03 00:00:00 [facility] TEST GLUCOSE BLOOD TEST 2019-04-04 00:00[facility] 2019-04-04 00:00:00 [facility] EST COMPREHEN METABOLIC 2019-04-04 00:00:00 [facility] PANEL LIPID PANEL 2019-04-04 00:00:00 [facility] GLYCOSYLATED HEMOGLOBIN 2019-04-04 00:00:00 [facility] TEST Plan of Care Planned Activity Planned Date Details Comments Source Future Scheduled 2023-03-[address] [facility]00 (procedure) [code = [facility] 31811303] Future Scheduled 2023-03-[address] [facility] 00:00:00 (procedure) [code = [facility] 89320467] Future Scheduled 2023-03-[address] [facility] 00:00:00 (procedure) [code = [facility] 04979263] Future Scheduled 2023-03-[address] [facility]00 [facility]procedure[facility]code [facility] 04171487] Future Scheduled 2023-03-[address] [facility] 00:00:00 (procedure) [code = [facility] 11763049] Future Scheduled 2023-03-[address] [facility] 00:00:00 (procedure) [code = [facility] 35918240] Future Scheduled 2023-03-[address] [facility] 00:00:00 (procedure) [code = [facility] 81314302] Future Scheduled 2021-09-[address] examination [facility] Center (regime/therapy) [code = 837496000] Future Scheduled 2021-09-[address] examination [facility] (regime/therapy) [code = 193105779] Future Scheduled 2021-09-[address] examination [facility] Center (regime/therapy) [code = 474407655] Future Scheduled 2021-09-[address] examination [facility] Center (regime/therapy) [code = 628042648] Future Scheduled 2021-09-[address] 00[facility] examination [facility] Center (regime/therapy) [code = 467471470] Future Scheduled 2021-09-[address] 00[facility]00 examination [facility] Center (regime/therapy) [code = 560465104] Future Scheduled 2021-09-[address] [facility] 00[facility] examination [facility] Center (regime/therapy) [code = 112466292] Future Scheduled 2020-11-27 INFLUENZA VACCINE (#1) C [...] 00:00:00 measurement [facility] Center (procedure) [code = 99610299] Future Scheduled 2020-06-[address] [facility]00 measurement [facility] (procedure) [code = 83569881] Future Scheduled 2020-06-[address] [facility] 00:[facility]:00 measurement [facility] (procedure) [code = 56531717] Future Scheduled 2020-06-[address] [facility] 00:00:00 measurement [facility] (procedure) [code = 22709490] Future Scheduled 2020-06-[address] [facility] 00:00:00 measurement [facility] (procedure) [code = 77477497] Future Scheduled 2020-06-[address] [facility] 00:00:00 measurement [facility] (procedure) [code = 08008023] Future Scheduled 2020-06-[address] [facility] 00:00:00 measurement [facility] Center (procedure) [code = 18071237] Future Scheduled 2018-06-11 Urine screening for [facility] 00:00:00 protein (procedure) Medical Center [code = 664221864] Future Scheduled 2018-06-11 Urine screening [facility] 00:00:00 protein (procedure) Medical Center [code = 766456079] Future Scheduled 2018-06-11 Urine screening [facility] 00:00:00 protein (procedure) Medical Center [code = 397938009] Future Scheduled 2018-06-11 Urine screening [facility] 00:00:00 protein (procedure) Medical Center [code = 831499730] Future Scheduled 2018-06-11 Urine screening [facility] 00:00:00 protein (procedure) Medical Center [code = 606735345] Future Scheduled 2018-06-11 Urine screening [facility] 00:00:00 protein (procedure) Medical Center [code = 088643335] Future Scheduled 2018-06-11 Urine screening [facility] 00:00:00 protein (procedure) Medical Center [code = 781022450] Future Scheduled 1992 DTAP/TDAP/TD VACCINES CH I [...] Medica l Center colon (procedure) [code = 578353896] Future Scheduled [address] [facility] 00:00:00 malignant neoplasm of [facility] colon (procedure) [code = 700482640] Future Scheduled [address] [facility] 00:00:00 malignant neoplasm of [facility] colon (procedure) [code = 032672360] Future Scheduled [address] 00:00:00 malignant neoplasm of [facility] colon (procedure) [code = 297113327] Future Scheduled [address] 00:00:00 malignant neoplasm of [facility] colon (procedure) [code = 522686295] Future Scheduled [address] 00:00:00 malignant neoplasm of [facility] Center colon (procedure) [code = 750765384] Future Scheduled [address] [facility] 00:00[facility]00 [facility] (procedure) [code = 516916088] Encounters Start End Encounter Admission Attending Care Care Encounter Source Date/Time Date/Time Type Type Clinicians Facility Department ID 2021-07-10 [id number] 08:51:03 [id number] [facility] 2021-06-20 Outpatient [facility] [id number] [place] 17:29:31 [id number] [facility] 2020-05-24 Inpatient [facility] [id number] [facility] 09[facility]38:00 -[id number] [facility] 2020-05-10 Inpatient [facility] [id number] [facility] 14:02:00 -[id number] [facility] 2021-08-05 2021-08-05 Outpatient RIMA [facility] [id number] [facility] 10:43:00 10:43:00 DINORA [facility] 2021-08-05 2021-08-05 Outpatient RIMA [facility] [id number] Access[facility] 10:43:00 10:43:00 DINORA [id number] [facility] [id number] 2021-08-05 2021-08-05 Outpatient DIANE [facility] [id number] [facility] 07:10:00 07:10:00 MIRTA [facility] 2021-08-05 2021-08-05 Outpatient DIANE [facility] [id number] Access[facility] 07:10:00 07:10:00 MIRTA [id number] alexander [id number] 2021-05-05 2021-06-05 Outpatient Neida NGUYEN [facility] [id number] [place] 09:28:00 23:59:00 [facility] 2021-05-20 2021-05-20 Outpatient YANDY LAWSON [facility] [id number] [facility] 15:35:00 15:35:00 ealt 2021-05-20 2021-05-20 Outpatient YANDY LAWSON [facility] [id number] [facility] 15:35:00 15:35:00 [id number] [facility] [place] [id number] 0f4 [id number] 2021-05-16 2021-05-16 Outpatient YANDY LAWSON [facility] [id number] AccessH 12:33:00 12:33:00 [facility] 2021-05-16 2021-05-16 Outpatient YANDY LAWSON [facility] [id number] AccessH 12:33:00 12:33:00 e2-2pw9-75x 999-41be-8 [facility] 0-uu1hyb644 6df-6164df 0f4 62042p 2021-05-15 2021-05-15 Outpatient YANDY LAWSON [facility] [id number] AccessH 08:15:00 08:15:00 ealt 2021-05-15 2021-05-15 Outpatient YANDY LAWSON [facility] [id number] AccessH 08:15:00 08:15:00 e2-4zb2-83l 961-4518-8 [facility] 0-ec8iwu843 fb9-ee55fe 0f4 cc7f43 2021-05-14 2021-05-14 Outpatient SHELBY, [facility] [id number] AccessH 08:39:00 08:39:00 SAMANTHA [facility] 2021-05-14 2021-05-14 [facility] [id number] AccessH 08:39:00 08:39:00 SAMANTHA e2-2sv5-42r 8ef-4243- 8 ealt 0-sb2sfm794 w8r-69z8ke 0f4 [id number] 2021-05-13 2021-05-13 Outpatient DIANE, [facility] [id number] AccessH 09:00:00 09:00:00 MIRTA [facility] 2021-05-13 2021-05-13 OFFICE/OUT DIANE [facility] [id number] AccessH 09:00:00 09:00:00 PATIENT MIRTA 22-4926-a4f 0af-4e30-a ealt VISIT EST f-[id number] alexander [id number] 2021-05-12 2021-05-12 Outpatient DIANE, [facility] [id number] AccessH 07:26:00 07:26:00 [facility]ly [facility], [facility] 2021-05-12 2021-05-12 Outpatient DIANE [facility] [id number] AccessH 07:26:00 07:26:00 MIRTA e9-44df-910 2b5-4caf-q [facility] [place] [id number] bb7-236ecb [id number] [id number] 5434-02-07 2021-05-05 Outpatient Neida NGUYEN [facility] [id number] 842 [place] 10:26:00 23:59:00 [facility] 2021-05-01 2021-05-01 [facility] [id number] Access[facility] 11:26:00 11:26:00 MIRTA [facility] 2021-05-01 2021-05-01 Outpatient DIANE [facility] [id number] a [id number] AccessH 11:26:00 11:26:00 MIRTA 22-4926-a4f r2g-0tg2-q ealt f-[id number] d5g-99181s alexander [id number] 2021-04-02 2021-04-02 Outpatient DIANE, [facility] [id number] AccessH 11:59:00 11:59:00 MIRTA [facility] 2021-04-02 2021-04-02 Outpatient DIANE, [facility] [id number] 1 [id number] AccessH 11:59:00 11:59:00 MIRTA 22-4926-a4f 378-4279-b ealt f-[id number]-w6f881 alexander [id number] 2021-03-27 2021-03-27 Outpatient DIANE, [facility] [id number] AccessH 08:12:00 08:12:00 MIRTA [facility] 2021-03-27 2021-03-27 Outpatient DIANE, [facility] [id number] 1 [id number] AccessH 08:12:00 08:12:00 MIRTA 22-4926-a4f 69e-4048-9 ealt f-[id number] alexander [id number] 2021-02-05 2021-02-05 Outpatient NURSE, [facility] [id number] AccessH 08:34:00 08:34:00 NURSE regina 2021-02-05 2021-02-05 Outpatient NURSE, [facility] [id number] c7f [id number] AccessH 08:34:00 08:34:00 NURSE 22-4926-a4f 27a-4773-9 ealt f-[id number] 7fb-1305a7 alexander [id number] 8567-11-05 2021-01-31 Outpatient DIANE, [facility] [id number] AccessH 12:07:00 12:07:00 MIRTA [facility] 2021-01-31 2021-01-31 [facility] [id number] d [id number] AccessH 12:07:00 12:07:00 MIRTA e2-8rz5-28u 77b-4d44-9 ealt 0-tj5edg018 7ae-0ec3b5 0f4 ab6c19 2021-01-29 2021-01-29 Outpatient DIANE, [facility] [id number] Access 10:00:00 10:00:00 MIRTA [facility] 2021-01-29 2021-01-29 OFFICE/OUT DIANE, [facility] [id number] Access 10:00:00 10:00:00 PATIENT MIRTA 22-4926-a4f r44-1rnj-d ealt VISIT EST f-[id number] alexander [id number] 2021-01-06 2021-01-06 Outpatient OSEI, [facility] [id number] Access 10:24:00 10:24:00 JOSEE [facility] 2021-01-06 2021-01-06 Outpatient OSEI, [facility] [id number] db1 [id number] Access 10:24:00 10:24:00 JOSEE 22-4926-a4f 382-4f2f-b [facility] f-[id number] alexander [id number] 2020-12-11 2020-12-11 Outpatient OSEI, [facility] [id number] Access 14:09:00 14:09:00 JOSEE [facility] 2020-12-11 2020-12-11 Outpatient OSEI [facility] [id number] Access 14:09:00 14:09:00 JOSEE e2-0tx3-71e da5-4cb6-9 [facility] 0-vh9rmj141 [id number] 0f4 6ed33f 2020-12-11 2020-12-11 Outpatient NURSE, [facility] [id number] Access 13:49:00 13:49:00 NURSE [facility] 2020-12-11 2020-12-11 Outpatient NURSE, [facility] [id number] 3c7 [id number]-e Access 13:49:00 13:49:00 NURSE 22-4926-a4f 06f-4acf-8 ealt f-[id number] p63-4395a5 alexander [id number] 2020-12-06 2020-12-06 Outpatient DIANE, [facility] [id number] Access 10:17:00 10:17:00 [facility], [facility] 2020-12-06 2020-12-06 Outpatient CONTRERAS, [facility] [id number] Access 10:17:00 10:17:00 MIRTA 22-4926-a4f 937-42b7-9 [facility] f-[id number]-f76g7a alexander [id number] 2020-11-04 2020-12-05 Outpatient Neida NGUYEN [facility] WC [id number] 097 [place] 09:15:00 23:59:00 [facility] 2020-12-03 2020-12-03 Outpatient CONTRERAS, [facility] [id number] Access 09:00:00 09:00:00 [facility], [facility] 2020-12-03 2020-12-03 OFFICE/OUT DIANE [facility] [id number] Access 09:00:00 09:00:00 PATIENT MIRTA 22-4926-a4f cc3-429e-b [facility] [place] VISIT EST f-[id number] alexander [id number] 8550-09-07 2020-12-03 Outpatient DIANE, [facility] [id number] Access 00:00:00 00:00:00 [facility], [facility] 2020-12-03 2020-12-03 Outpatient DIANE [facility] [id number] Access 00:00:00 00:00:00 MIRTA ed-4120-b9c 2b8-20qz-t [facility] [place] [id number] dd9-w5h351 27a 14fcc1 2020-10-07 2020-11-06 Outpatient Neida NGUYEN [facility] WC [id number] [place] 08:58:00 15:34:00 [facility] 2020-11-02 2020-11-02 [facility] [id number] Access 10:08:00 10:08:00 [facility] 2020-11-02 2020-11-02 Outpatient DIANE [facility] [id number] AccessH 10:08:00 10:08:00 MIRTA 22-4926-a4f 3ac-4fb1-9 ealt f-[id number] 3ff-44aa5d alexander acf95f 2020-10-29 2020-10-29 Outpatient C DIANE [facility] RAD [id number] [facility] 10:49:00 23:59:[address] [facility] 2020-10-29 2020-10-29 [facility] [id number] Access 08:30:00 08:30:00 MIRTA [facility] 2020-10-29 2020-10-29 [facility] [id number] Access 08:30:00 08:30:00 PATIENT MIRTA 22-4926-a4f 799-42b5-b [facility] VISIT EST f-[id number] u0k-4l3k5f alexander [id number] 2020-10-01 2020-10-01 [facility] [id number] Access 13:25:00 13:25:00 MIRTA [facility] 2020-10-01 2020-10-01 [facility] [id number] Access 13:25:00 13:25:00 MIRTA 22-4926-a4f bbe-4dcc-9 [facility] f-[id number] alexander [id number] 7372-06-27 2020-09-29 [facility] David Winchester [facility] [id number] [facility] [facility] 06:13:00 13:20:00 Encounter Gretchen Hensley [facility] 2020-09-26 2020-09-26 Surgery Patrick [facility] [id number] [facility] 07:00:00 08:30:00 [facility] 2020-09-26 2020-09-26 Anesthesia Joanie [facility] [id number] 07:12:00 08:20:[address] [facility] 2020-09-22 2020-09-22 Emergency ER [facility] Emergency [id number] [facility] 06:09:00 06:09:00 2020-09-22 2020-09-22 Travel [facility] [id number] [facility] 00:00:00 00:00:00 [facility] 2020-09-17 2020-09-17 Outpatient CONTRERAS, [facility] [id number] Access 10:30:00 10:30:00 MIRTA [facility] 2020-09-17 2020-09-17 OFFICE/OUT CONTRERAS, [facility] [id number] Access 10:30:00 10:30:00 PATIENT MIRTA 22-4926-a4f x0v-3092-c ealt VISIT EST f-[id number] alexander [id number] 2020-08-19 2020-08-19 Outpatient [facility], [facility] [id number] Access 16:36:00 16:36:00 NAIF [facility] 2020-08-19 2020-08-19 Outpatient [facility], [facility] [id number] ffa [id number] Access 16:36:00 16:36:00 NAIF 22-4926-a4f 77c-448d- a [facility] f-[id number] 947-967f2c alexander [id number] 2020-08-15 2020-08-15 Outpatient [facility], [facility] [id number] Access 16:00:00 16:00:00 NAIF [facility] 2020-08-15 2020-08-15 OFFICE/OUT [facility], [facility] [id number] b2d [id number] Access 16:00:00 16:00:00 PATIENT NAIF 22-4926-a4f 3t2-01vb- 8 [facility] VISIT EST f-[id number] bfe-b7e8ff alexander [id number] 2020-07-04 2020-07-04 Outpatient [facility], [facility] [id number] Access 08:04:00 08:04:00 NAIF [facility] 2020-07-04 2020-07-04 Outpatient OMORI, [facility] [id number] bf0 [id number] AccessH 08:04:00 08:04:00 NAIF Sameer-4926-a4f o89-67oe- 8 [facility] f-[id number] 83a-8c2a7a alexander [id number] 2020-06-28 2020-06-28 Outpatient NURSE, [facility] [id number] Access[facility] 09:35:00 09:35:00 NURSE [facility] 2020-06-28 2020-06-28 Outpatient NURSE, [facility] [id number] [id number] Access[facility] 09:35:00 09:35:00 NURSE 89-477f-ac7 e46-2do0-9 [facility] 5-w66z4h2l2 h14-m22g0s de3 afab8a 2020-06-19 2020-06-19 Outpatient OMORI, [facility] [id number] Access[facility] 10:00:00 10:00:00 NAIF galvez 2020-06-19 2020-06-19 Outpatient OMORI, [facility] [id number] Access 10:00:00 10:00:00 NAIF Sameer-4926-a4f 103-4d36- a [facility] f-[id number] alexander eaa20d 2020-05-09 2020-05-09 Outpatient OMORI, [facility] [id number] Access[facility] 12:10:00 12:10:00 NAIF tapia 2020-05-09 2020-05-09 Outpatient OMORI, [facility] [id number] f95 [id number] AccessH 12:10:00 12:10:00 NAIF 22-4926-a4f 9af-4860- 9 [facility] f-[id number] alexander [id number] 2020-04-30 2020-04-[address] [id number] 18:09:00 19:41:00 David Wang [facility] 2020-04-30 2020-04-30 Emergency ER [facility] Emergency [id number] [facility] 17:53:00 17:53:00 2020-04-30 2020-04-30 Travel [facility] [id number] [facility] 00:00:00 00:00:00 [facility] 2020-04-26 2020-04-26 Outpatient OMORI, [facility] [id number] Access 10:00:00 10:00:00 [facility]IF [facility] 2020-04-26 2020-04-26 OFFICE/OUT OMORI, [facility] [id number] [id number] [id number]-n Access 10:00:00 10:00:00 PATIENT NAIF 22-4926-a4f 15b-403b- a [facility] VISIT [facility] f-[id number] alexander [id number] 2020-04-22 2020-04-22 Outpatient OMORI, [facility] [id number] Access 14:45:00 14:45:00 NAIF tapia 2020-04-22 2020-04-22 Outpatient OMORI, [facility] [id number] [id number] [id number] Access 14:45:00 14:45:00 NAIF 22-4926-a4f 332-4409- b [facility] f-[id number] o60-qi07q5 alexander [id number] 2020-04-22 2020-04-22 Outpatient IRIZARRY, [facility] [id number] Access 12:41:00 12:41:00 SUKUMAR [facility] 2020-04-22 2020-04-22 Outpatient IRIZARRY, [facility] [id number] ddbd0-e Access 12:41:00 12:41:00 KATELINE e2-0ct5-10v 1m2-2b8d- 9 [facility] [id number]-[id number] 30c-206d01 0f4 iq2506 2020-04-18 2020-04-18 Outpatient OMORI, [facility] [id number] Access 13:20:00 13:20:00 NAIF [facility] 2020-04-18 2020-04-18 Outpatient OMORI, [facility] [id number] [id number] Access 13:20:00 13:20:00 NAIF Estrella-4926-a4f k44-3lc4- 9 [facility] f-[id number] alexander [id number] 2020-04-09 2020-04-09 Outpatient [facility], [facility] [id number] Access 09:46:00 09:46:00 NAIF [facility] 2020-04-09 2020-04-09 Outpatient [facility], [facility] [id number] AccessH 09:46:00 09:46:00 NAIF Estrella-4926-a4f 7fb-45a5- 8 [facility] f-[id number] eb3-4da5a2 alexander dfcadb 2020-03-30 2020-04-06 [facility] Tyshawn Serra Hensley [facility] [id number] 19:31:00 13:42:00 Encounter Abel Alatorre Surinder zan [facility] 2020-04-04 2020-04-04 Outpatient [facility], [facility] [id number] Access 14:43:00 14:43:00 NAIF [facility] 2020-04-04 2020-04-04 Outpatient [facility], [facility] [id number] Access 14:43:00 14:43:00 NAIF Estrella-4926-a4f m0e-5l00- 9 [facility] f-[id number] alexander 6cbd5c 2020-04-01 2020-04-01 Anesthesia Jose Raul [facility] [id number] 11:51:00 12:50:00 Event [facility] 2020-04-01 2020-04-01 Surgery Patrick [facility] [id number] 11:30:00 12:45:00 [facility] 2020-04-01 2020-04-01 Orders [facility] [id number] 00:00:00 00:00:00 [facility] 2020-03-30 2020-03-30 Emergency ER [facility] Emergency [id number] [facility] 19:22:00 19:22:00 2020-03-30 2020-03-30 Travel [facility] [id number] [facility] 00:00:00 00:00:00 [facility] 2020-03-19 2020-03-20 Emergency ER Venkatesh [facility] [id number] 23:25:00 02:51:00 David Wang [facility] 2020-03-19 2020-03-19 Emergency ER [facility] Emergency [id number] [facility] 23:15:00 23:15:00 2020-03-19 2020-03-19 Travel [facility] [id number] [facility] 00:00:00 00:00:00 [facility] 2020-03-08 2020-03-08 Outpatient DINH CALVO [facility] [id number] Access[facility] 12:03:00 12:03:00 [facility] 2020-03-08 2020-03-08 Outpatient DINH CALVO [facility] [id number]-o Access 12:03:00 12:03:00 e2-4lp2-27v p03-1f94-e [facility] [id number]-[id number] [id number] 0f4 [id number] 2020-03-06 2020-03-06 Outpatient [facility], [facility] [id number] Access 15:00:00 15:00:00 NAIF [facility] 2020-03-06 2020-03-06 OFFICE/OUT [facility], [facility] [id number] [id number] [id number]-4 AccessH 15:00:00 15:00:00 PATIENT NAIF 22-4926-a4f 79d-4bf4- 8 [facility] VISIT EST f-[id number] 3l0-ms0803 alexander x4722m 2019 2019 Emergency ER [facility] Emergency [id number] [facility] 07:11:00 07:11:00 2019-11-20 2019-11-20 Outpatient [facility], [facility] [id number] Access 10:30:00 10:30:00 NAIF [facility] 2019-11-20 2019-11-20 Outpatient [facility], [facility] [id number] 8ff [id number] AccessH 10:30:00 10:30:00 NAIF Bravo4926-a4f ea8-46d7- a [facility] f-[id number] p48-p3hog3 alexander [id number] 2019-11-09 2019-11-09 Outpatient STEFANI, [facility] [id number] AccessH 16:15:00 16:15:00 [facility] 2019-11-09 2019-11-09 [facility] [id number]-y [facility] 16:15:00 16:15:00 PATIENT NAIF Bravo4926-a4f c7t-3o07- 8 ealth VISIT EST f-80069261h [id number] alexander [id number] 2019-09-28 2019-09-28 [facility] 0d0 j2255-h AccessH 13:21:00 13:21:00 NAIF Ferreira6-a4f 189-4af1- 9 [facility] f-[id number] alexander 18950s 2019-09-28 2019-09-28 Outpatient DINH CALVO [facility] [id number] AccessH 10:54:00 10:54:00 e2-3kd2-37h 730-4d70-a ealt 0-qu5yjv045 7ef-ba6cbd 0f4 [id number] 2019-07-15 2019-07-15 Emergency [facility] [id number] [facility] 22:19:00 22:19:00 [id number] 2019-07-03 2019-07-03 OFFICE/OUT [facility], [facility] [id number] 81c 050k4-h AccessH 10:30:00 10:30:00 PATIENT NAIF Bravo4926-a4f 8cf-4b4d- b ealt VISIT EST f-[id number] 4k6-jmg6vf alexander [id number] 2019-05-09 2019-05-09 Outpatient [facility], [facility] [id number] 405 x056s-t AccessH 08:16:00 08:16:00 NAIF Bravo4926-a4f w3k-87y0- b ealth f-90906707p 12b-ff4e3d alexander ada41d 2019-05-01 2019-05-01 Outpatient NURSE, [facility] vuq401if-6w 07a c8o1t-9 Access[facility] 09:27:00 09:27:00 NURSE Hanna6-a4f eab-46d9-9 ealt f-95136163f f87-42n15b alexander [id number] 2019-04-11 2019-04-11 Outpatient OMORI, [facility] zmw388de-8v [id number] [id number]-z AccessH 17:52:00 17:52:00 NAIF Bravo4926-a4f c89-8k2g- 9 ealt f-24462615l 1ed-4c31d3 alexander a7dbdd 2019-04-06 2019-04-06 [facility] cfd 03835-5 Access[facility] 17:33:00 17:33:00 NAIF Bravo4926-a4f 877-42c1- a ealth f-[id number] t06-15098c alexander [id number] 2019-04-04 2019-04-04 [facility] 0a8 6g27v-5 Access[facility] 14:30:00 14:30:00 PATIENT NAIF Bravo4926-a4f lyudmila-46ec- b ealth VISIT EST f-69053630w fd1-2857e5 alexander [id number] 2018-09-07 2018-09-07 Outpatient OMORI, [facility] [id number]-0a 7e5 64fea-3 AccessH 00:00:00 00:00:00 NAIF Bravo4926-a4f 2ee-4361- b ealth f-57719752d j1n-5x0w76 alexander [id number] 2018-09-06 2018-09-06 Outpatient OMORI, [facility] cfd328pz-[id number] 69a 1q2r8-9 Access[facility] 09:34:00 09:34:00 NAIF Bravo4926-a4f cf2-4291- 9 ealth f-39809933h db4-f91ed2 alexander [id number] 2018-07-26 2018-07-26 Outpatient ACCESS[facility]ALT [facility] [id number] [facility] 00:00:00 00:00:00 H, PROVIDER [facility] 2018-07-26 2018-07-26 Outpatient [facility] [id number] AccessH 00:00:00 00:00:00 H, PROVIDER e2-7cn1-29e 24b-42 3c-8 [facility] 0-uk0ios259 036-5ea1f1 0f4 dc6a94 2018-07-26 2018-07-26 Outpatient CONTRERAS, [facility] [id number]-5b 7 [id number] AccessH 00:00:00 00:00:00 MIRTA 22-4926-a4f j87-24e0-a [facility] f-[id number] [id number] alexander [id number] 2018-07-26 2018-07-26 Outpatient OMORI, [facility] [id number] [facility] 00:00:00 00:00:00 NAIF e2-6tp8-24z 397-493a- a [facility] [id number] 0f4 [id number] 2018-07-26 2018-07-26 Outpatient OMORI, [facility] [id number] [facility] 00:00:00 00:00:00 NAIF 22-4926-a4f ba6-4f54- 8 [facility] f-[id number] alexander [id number] 2018-07-25 2018-07-25 Outpatient OMORI, [facility] [id number] [facility] 00:00:00 00:00:00 NAIF 22-4926-a4f b31-8823- 8 [facility] f-[id number] alexander [id number] 2018-07-22 2018-07-22 Outpatient [facility] [id number] Access 00:00:00 00:00:00 H, PROVIDER [facility] 2018-07-22 2018-07-22 Outpatient [facility] [id number] [facility] 00:00:00 00:00:00 H, PROVIDER gabby-7kx1-83z 1b8-4b 5b-b [facility] [id number] 0f4 [id number] 9955-04-26 2018-07-22 Outpatient OMORI, [facility] [id number] [facility] 00:00:00 00:00:00 NAIF 22-4926-a4f 8cb-[id number]- b [facility] f-[id number] alexander [id number] 2018-07-22 2018-07-22 Outpatient DIANE, [facility] [id number] [facility] 00:00:00 00:00:00 MIRTA 22-4926-a4f [id number]-q [facility] f-[id number] alexander cfbbac 2018-06-28 2018-06-28 Outpatient [facility] [id number] [facility] 00:00:00 00:00:00 H, PROVIDER [facility] 2018-06-28 2018-06-28 Outpatient [facility] [id number] [facility] 00:00:00 00:00:00 H, PROVIDER gabby-[id number] 17d-4e 23-9 [facility] [id number] 0f4 [id number] 2018-03-30 2018-03-30 Outpatient [facility] [id number] [facility] 00:00:00 00:00:00 H, PROVIDER [facility] 2018-03-30 2018-03-30 Outpatient [facility] [id number] [facility] 00:00:00 00:00:00 H, PROVIDER [id number] 22-8 ealt [id number] 0f4 [id number] 2018-03-30 2018-03-30 Outpatient CONTRERAS, [facility] [id number] [facility] 00:00:00 00:00:00 MIRTA 22-4926-a4f 56a-40cb-a [facility] [id number] alexander [id number] 4456-01-02 2018-03-30 Outpatient OMORI, [facility] [id number] [facility] 00:00:00 00:00:00 NAIF 22-4926-a4f 520-4c13- 8 [facility] f-[id number] alexander [id number] 2017-12-28 2017-12-28 Outpatient [facility] [id number] Access 00:00:00 00:00:00 H, PROVIDER casey lala 2017-12-28 2017-12-28 Outpatient [facility] [id number] Access 00:00:00 00:00:00 H, PROVIDER e2-3cr7-13y bed-49 71-9 [facility] [id number] 0f4 [id number] 2017-12-27 2017-12-27 Outpatient [facility] [id number] Access 00:00:00 00:00:00 H, PROVIDER casey lala 2017-12-27 2017-12-27 Outpatient [facility] [id number] Access 00:00:00 00:00:00 H, PROVIDER e2-9lk1-36b 1d0-43 b0-a [facility] [id number] 0f4 [id number] 2017-12-20 2017-12-20 Outpatient CONTRERAS, [facility] [id number] [facility] 08:48:00 08:48:00 MIRTA 22-4926-a4f 224-45e3-9 [facility] f-[id number] alexander 040c9a 2017-12-20 2017-12-20 Outpatient [facility] [id number] Access 00:00:00 00:00:00 H, PROVIDER casey molina 2017-12-20 2017-12-20 Outpatient [facility] 2zf7v2j6-7o 5qmyv28b-1 Access[facility] 00:00:00 00:00:00 H, PROVIDER april2pj8-57y b2c-4b 7d-b ealt 0-ju1xjn726 l56-35k21y 0f4 c568b3 2017-12-20 2017-12-20 Outpatient IRIZARRY, [facility] van939tx-8e 79a 17616-b Access[facility] 00:00:00 00:00:00 KATELINE 22-4926-a4f eae-4c31- b ealt f-94517257s 520-sx3940 alexander 0a3c1f 2017-12-20 2017-12-20 Outpatient OMSTEFANI, [facility] nwp437un-3t 2e3 yvh2d-3 Access[facility] 00:00:00 00:00:00 NAIF 22-4926-a4f da8-4f41- a ealth f-54000956y 12d-3adf05 alexander 0d5ff7 2017-12-20 2017-12-20 Outpatient ENRIQUE, [facility] lfv691mk-6t a7c 7f205-x Access[facility] 00:00:00 00:00:00 SALIMARI 22-4926-a4f 8j3-2z2u-9 ealth f-04585309c 8q6-h55a58 alexander 4b61d6 2017-12-20 2017-12-20 Outpatient JONAS, [facility] ffn125fc-6e cf 97wov3-r Access[facility] 00:00:00 00:00:00 MAEVE 22-4926-a4f 051-44b8-b ealt f-70255036u 4p8-6n5010 alexander aee2d5 2017-07-14 2017-07-14 Outpatient [facility] 107 [id number] Access[facility] 00:00:00 00:00:00 H, PROVIDER casey [facility] 2017-07-14 2017-07-14 Outpatient [facility] 0uz0j6m0-9b er2o9pr7-a Access[facility] 00:00:00 00:00:00 H, PROVIDER april3jb4-62h 109-47 80-a ealt 0-mj4ojc624 784-d32096 0f4 01e0fc 2017-07-14 2017-07-14 Outpatient [facility] 3zy4i2t0-5x f0f 0p13n-h Access[facility] 00:00:00 00:00:00 e2-8kt5-91o 98a-4568-b ealth 0-sj8ele634 001-941db6 0f4 9c42e9 2017-07-14 2017-07-14 Outpatient ENRIQUE, [facility] 8ec7e7o2-6b 7d1 q7efm-4 Access[facility] 00:00:00 00:00:00 GAYTARI e2-2et1-02f 7cb-4bf9-9 ealt 0-pq4kqg712 a57-5944x5 0f4 478371 9070-03-16 2017-06-11 Outpatient OMORI, [facility] asv543uc-4z ded rt410-8 Access[facility] 00:00:00 00:00:00 NAIF 22-4926-a4f 849-421a- a ealth f-66518667d 11b-54fdd4 alexander 0c6046 2017-06-10 2017-06-10 Outpatient [facility] [id number] Access[facility] 00:00:00 00:00:00 H, PROVIDER ea lth 2017-06-10 2017-06-10 Outpatient [facility] 2zc1r9k3-9a m9asc8wa-7 Access[facility] 00:00:00 00:00:00 H, PROVIDER e2-8fy4-02n a95-4d 18-8 ealth 0-ac3yuf026 67d-88e2c2 0f4 2eef4c 2017-06-10 2017-06-10 Outpatient CONTRERAS, [facility] uwn816ps-9a e pf7y6un-9 Access[facility] 00:00:00 00:00:00 MIRTA 22-4926-a4f 3ac-43d9-9 ealth f-65782367s 6de-98g326 alexander ceaffe 2017-06-10 2017-06-10 Outpatient EM, [facility] dit475nz-4n 27 k6igug-1 Access[facility] 00:00:00 00:00:00 VITA 22-4926-a4f 0ec-4f3f -8 ealth f-22665863r 3z3-5b4c56 alexander 02e578 2017-06-10 2017-06-10 Outpatient OMSTEFANI, [facility] atd260ba-8c 6d7 dp443-r Access[facility] 00:00:00 00:00:00 NAIF Estrella-4926-a4f s1t-2349- b ealt f-07539130w 499-yn729r alexander mfb861 2017-04-09 2017-04-09 Outpatient ZOE, [facility] zri918eq-7b a22 7fjp4-7 Access[facility] 13:28:00 13:28:00 NAIF Bravo4926-a4f 27b-4f1f- 8 ealth f-86762356m 3ef-fa2b8f alexander 97650t 2017-04-09 2017-04-09 Outpatient [facility] 107 [id number] Access 00:00:00 00:00:00 H, PROVIDER [facility] 2017-04-09 2017-04-09 Outpatient [facility] 9vq6k8v9-8x ak02300j-4 Access[facility] 00:00:00 00:00:00 H, PROVIDER e2-0yx8-47d acc-4b a3-b ealt 0-gr5tkx537 r03-12zw4z 0f4 8a3159 2017-04-09 2017-04-09 Outpatient DIANE, [facility] bal943ss-6d d 2416qn3-6 Access[facility] 00:00:00 00:00:00 MIRTA 22-4926-a4f be7-40fa-9 ealt f-07067813n fad-beba5c alexander 745e5a 2017-03-30 2017-03-30 Outpatient [facility] 107 [id number] Access[facility] 00:00:00 00:00:00 H, PROVIDER [facility] 2017-03-30 2017-03-30 Outpatient [facility] 2wt1o0n9-7m u3h1h704-z Access[facility] 00:00:00 00:00:00 H, PROVIDER e2-4gb2-71i e7f-41 b3-8 ealt 0-pq2hsi795 0ab-3ry539 0f4 5ba25a 2017-02-09 2017-02-09 Outpatient [facility] [id number] Access[facility] 00:00:00 00:00:00 H, PROVIDER [facility] 2017-02-09 2017-02-09 Outpatient [facility] 5hj5p4s4-5j 43x5bo9w-2 Access[facility] 00:00:00 00:00:00 H, PROVIDER e2-9rj8-08o eed-49 91-9 [facility] 0-dk4pem324 725-62889r 0f4 de8ac2 2017-02-09 2017-02-09 Outpatient OMORI, [facility] fki396kt-6o b35 xt105-3 Access[facility] 00:00:00 00:00:00 NAIF 22-4926-a4f u76-6j73- a ealth f-09485131z u16-27u0o6 alexander 88c1fc 2017-02-09 2017-02-09 Outpatient DIANE, [facility] nkq841fe-4o d 79p5s49-v Access[facility] 00:00:00 00:00:00 MIRTA 22-4926-a4f 34c-46bd-b ealth f-69361230l 70f-o3587u alexander faf56f 2016-12-15 2016-12-15 Outpatient [facility] 107 [id number] Access[facility] 00:00:00 00:00:00 H, PROVIDER [facility] 2016-12-15 2016-12-15 Outpatient [facility] 8dw6v7d7-6d [id number] Access[facility] 00:00:00 00:00:00 H, PROVIDER e2-1vv9-34b 3ba-4a 3c-8 [facility] 0-hl6bqm408 9fd-cceee0 0f4 5f5e8e 2016-12-15 2016-12-15 Outpatient CHARLY BARDALES [facility] 14x3534w-60 01bob7e7-6 Access[facility] 00:00:00 00:00:00 45-3j1a-n6h p3i-10x4-e ealth d-q5n412199 00b-ed1c16 354 e7dd8d 2016-12-12 2016-12-12 Outpatient [facility] 107 [id number] Access[facility] 00:00:00 00:00:00 H, PROVIDER [facility] 2016-12-12 2016-12-12 Outpatient [facility] 9cz1f9q5-0o z3115vm5-y Access[facility] 00:00:00 00:00:00 H, PROVIDER e2-6is0-05w 6fa-4f 7f-9 [facility] 0-tm3ucs798 402-fe6f8d 0f4 1526bf 2016-12-12 2016-12-12 Outpatient MENDIETA, [facility] 7xu3j0z1-1p 91 1o20ak-8 Access[facility] 00:00:00 00:00:00 CHRISTINA e2-9wp8-93o p6b-2ipz- 9 ealt 0-bm1nuo355 558-4d60f7 0f4 f917d6 2016-12-11 2016-12-11 Outpatient CHARLY BARDALES [facility] 34f5248m-79 t15d7c2j-3 Access[facility] 00:00:00 00:00:00 45-5b7w-z5l 3fe-4dc9-9 ealt d-j8a725009 474-f474cb 354 c4eb2b 2016-12-10 2016-12-10 Outpatient [facility] [id number] Access[facility] 00:00:00 00:00:00 H, PROVIDER [facility] 2016-12-10 2016-12-10 Outpatient [facility] 6kw1p5y5-7r 654rpu9h-8 Access[facility] 00:00:00 00:00:00 H, PROVIDER e2-2on8-11r 706-4a aa-b ealt 0-yo1ilt680 af4-5611ae 0f4 619906 6468-09-14 2016-12-10 Outpatient CHARLY BARDALES [facility] 10m9076i-82 8mv75l09-i Access[facility] 00:00:00 00:00:00 45-0v0v-t3e j0g-2267-l ealt d-a2u185058 s6x-51b9p3 354 5b51dc 2016-12-01 2016-12-01 Outpatient [facility] 107 [id number] Access 00:00:00 00:00:00 H, PROVIDER [facility] 2016-12-01 2016-12-01 Outpatient [facility] 0co3d7m2-4a 2jh5l0b6-1 Access[facility] 00:00:00 00:00:00 H, PROVIDER e2-1vb9-24o 4f5-4c 72-9 ealth 0-kh9znh222 e3s-3rg624 0f4 8ff05c 2016-12-01 2016-12-01 Outpatient DIPIKA, [facility] [id number]-54 42 us82ur-2 Access 00:00:00 00:00:00 LAVELLE 45-3d5g-h9n 636-4710-8 ealth d-c1b777640 2ff-2f9a6a 354 ef57e5 2016-12-01 2016-12-01 Outpatient CHARLY BARDALES [facility] [id number]-43 plny1841-g Access 00:00:00 00:00:00 45-0a5z-b1y df0-4210-a ealt d-i5p719032 2x8-330o6y 354 7l8609 2016-11-27 2016-11-27 Outpatient [facility] 107 [id number] Access 00:00:00 00:00:00 H, PROVIDER [facility] 2016-11-27 2016-11-27 Outpatient [facility] 6ex8g3c1-0j jwm0o2ub-5 Access[facility] 00:00:00 00:00:00 H, PROVIDER gabby-6se9-86z db1-44 51-9 ealth 0-iy2iyw594 1n5-k9j990 0f4 779325 2412-09-01 2016-11-27 Outpatient DIPIKA, [facility] [id number]-63 72 n1ei64-6 Access[facility] 00:00:00 00:00:00 LAVELLE 45-5b1d-r8y e06-84e0-z ealth d-r3r720518 384-b0c4cd 354 eb80b5 2016-11-26 2016-11-26 Outpatient [facility] 107 [id number] Access[facility] 00:00:00 00:00:00 H, PROVIDER [facility] 2016-11-26 2016-11-26 Outpatient [facility] 1ik5q1m5-0g 3f593bn8-y Access[facility] 00:00:00 00:00:00 H, PROVIDER e2-0mg9-19y c45-46 cf-b ealth 0-ur4osj743 4ad-4c0e68 0f4 37dc7c 2016-11-26 2016-11-26 Outpatient CANAMAR, [facility] [id number]-37 c0 ms2305-4 Access[facility] 00:00:00 00:00:00 LAVELLE 45-6n6g-g8g ae7-40e5-a ealt d-j8l586727 i43-8v60i0 354 fc21e9 2016-11-20 2016-11-20 Outpatient [facility] [id number] Access 00:00:00 00:00:00 H, PROVIDER [facility] 2016-11-20 2016-11-20 Outpatient [facility] 9jf2s3l4-2y [id number] Access[facility] 00:00:00 00:00:00 H, PROVIDER gabby-0pz4-58v 2e2-42 0d-8 ealt 0-qj4zpf047 i44-016v43 0f4 20n758 2016-11-20 2016-11-20 Outpatient CANAMAR, [facility] 97a0389c-30 60 38l595-k Access[facility] 00:00:00 00:00:00 LAVELLE 45-9d6e-u7u 250-49d0-a ealt d-j0r103655 aa8-0b8ad1 354 230237 0444-08-23 2016-11-18 Outpatient [facility] [id number] Access[facility] 00:00:00 00:00:00 H, PROVIDER casey lala 2016-11-18 2016-11-18 Outpatient [facility] 1jf2a0u6-9k [id number] Access[facility] 00:00:00 00:00:00 H, PROVIDER gabby-3ip6-34d 7d4-4d a9-8 ealt 0-qd4tce982 i88-24gvrg 0f4 c11e26 2016-11-18 2016-11-18 Outpatient CHARLY BARDALES [facility] [id number]-00 [id number] Access[facility] 00:00:00 00:00:00 45-5f0p-r3j ea3-4257-a ealt d-m2q011059 2cc-9275f9 354 e49a35 2016-11-12 2016-11-12 Outpatient DIPIKA, [facility] 72s3191m-45 29 30i341-m Access 00:00:00 00:00:00 LAVELLE 45-2u3x-h5x y8i-6nx5-g [facility] d-j8q819998 k5q-538rn2 354 md3974 2016-11-11 2016-11-11 Outpatient [facility] [id number] Access 00:00:00 00:00:00 H, PROVIDER [facility] 2016-11-11 2016-11-11 Outpatient [facility] 3gi4a8y9-2c [id number]-2 Access[facility] 00:00:00 00:00:00 H, PROVIDER e2-7ga2-00q 968-42 07-b ealt 0-af1jgw798 n67-383423 0f4 9f36c8 2016-11-11 2016-11-11 Outpatient DIPIKA, [facility] [id number]-11 7c e13z0j-i Access[facility] 00:00:00 00:00:00 LAVELLE 45-8u7r-l3j 633-4aa9-8 ealt d-f9s621880 fff-187664 354 ee4a0e 2016-10-30 2016-10-30 Outpatient [facility] [id number] Access[facility] 00:00:00 00:00:00 H, PROVIDER [facility] 2016-10-30 2016-10-30 Outpatient [facility] 6hb8q8o5-9n [id number] Access[facility] 00:00:00 00:00:00 H, PROVIDER e2-7vw3-81x 47b-46 3e-8 ealt 0-df5dgo122 i6f-rfm0e4 0f4 1n2492 2016-10-30 2016-10-30 Outpatient CHARLY BARDALES [facility] [id number]-75 7266p36j-u Access[facility] 00:00:00 00:00:00 45-8s9g-o4y evert-47eb-b [facility] d-v4e818589 5y0-34w2fz 354 7383d1 2016-10-26 2016-10-26 Outpatient [facility] [id number] Access[facility] 00:00:00 00:00:00 H, PROVIDER [facility] 2016-10-26 2016-10-26 Outpatient [facility] 5ne3i1r4-7l 5ck16g71-5 Access[facility] 00:00:00 00:00:00 H, PROVIDER e2-0lx5-67w 1e9-4c db-b [facility] 0-qh0elj942 w73-z597le 0f4 48ce57 2016-10-26 2016-10-26 Outpatient ISAURA, [facility] 9dg2o8s0-5n e8 60no58-0 Access[facility] 00:00:00 00:00:00 CHRISTINA e2-4qy6-73v p8r-2997- 9 [facility] 0-uw3uyv411 w4t-e6i8k7 0f4 7373c9 2016-10-26 2016-10-26 Outpatient ZOE, [facility] 4ue1d4s0-0g 5e5 5b4vf-4 Access[facility] 00:00:00 00:00:00 NAIF e2-5ja2-00u a16-0k01- b [facility] 0-py4zrv560 000-kw7536 0f4 79f96a 2016-10-09 2016-10-09 Outpatient CANAMAR, [facility] 71g7280u-75 cf 6536cf-2 [facility] 00:00:00 00:00:00 LAVELLE 45-3i7f-m0z 038-47e9-8 [facility] d-q0m833854 93d-796d4d 354 1ee1de 2016-10-08 2016-10-08 Outpatient [facility] [id number] Access 00:00:00 00:00:00 H, PROVIDER [facility] 2016-10-08 2016-10-08 Outpatient [facility] 1yg8u7t0-4b 0503y910-v Access[facility] 00:00:00 00:00:00 H, PROVIDER gabby-9dg2-41a 757-44 91-a ealth 0-fa7xmi189 338-7c8ea0 0f4 g5g886 2016-10-08 2016-10-08 Outpatient CANAMAR, [facility] 14o0370y-58 46 nq2bx4-8 [facility] 00:00:00 00:00:00 LAVELLE 45-5n1a-v2m k61-2f3e-x ealth d-y0h979345 65d-fda44a 354 c196f4 2016-10-05 2016-10-05 Outpatient [facility] 107 [id number] [facility] 00:00:00 00:00:00 H, PROVIDER [facility] 2016-10-05 2016-10-05 Outpatient CANAMAR, [facility] [id number]-36 c9 3n23c1-t [facility] 00:00:00 00:00:00 LAVELLE 45-9l4r-t3f 5q4-715e-g ealt d-k4a196899 f51-fi84sp 354 [id number] 2061-07-10 2016-10-05 Outpatient [facility] 9su1s9r8-3g 54j5ys3c-7 [facility] 00:00:00 00:00:00 H, PROVIDER gabby-8ad5-81d 137-4e 58-a ealth 0-fo9yjb881 0aa-35222w 0f4 eg262b 2016-09-24 2016-09-24 Outpatient [facility] 107 [id number] [facility] 00:00:00 00:00:00 H, PROVIDER casey lala 2016-09-24 2016-09-24 Outpatient [facility] 8js5i1q1-6l 15ew9t26-a [facility] 00:00:00 00:00:00 H, PROVIDER valerie7lj4-74s 9da-4d 9e-a ealth 0-fk0ikm606 e55-71422e 0f4 0747d9 2016-09-24 2016-09-24 Outpatient MENDIETA, [facility] 9uy8l0y8-4x af [id number]-m [facility] 00:00:00 00:00:00 CHRISTINA e2-0qa3-92x l46-743l- b ealth 0-ut2qfg884 h6j-6s414c 0f4 7bee42 2016-09-24 2016-09-24 Outpatient OMORI, [facility] 6gp5w4w6-3s 060 1h0p3-7 [facility] 00:00:00 00:00:00 NAIF e2-8lj7-14f 4bb-4165- a ealt 0-dl1bao895 98a-3e169m 0f4 83a240 2016-09-22 2016-09-22 Outpatient [facility] [id number] [facility] 00:00:00 00:00:00 H, PROVIDER [facility] 2016-09-22 2016-09-22 Outpatient [facility] 7pa7g3l7-4o [id number]-2 [facility] 00:00:00 00:00:00 H, PROVIDER e2-1fi8-74j 072-4c 2a-9 ealt 0-gt9vaa525 094-b1ac8e 0f4 1311cf 2016-09-22 2016-09-22 Outpatient TIMA, [facility] 1ar6f1p9-3w 292 72ebd-f [facility] 00:00:00 00:00:00 OSMAN e2-6js0-08l 330-4e57-a ealt 0-ey7hcn634 92e-33cd44 0f4 9g7711 2016-09-22 2016-09-22 Outpatient CONTRERAS, [facility] 1lh2g9b3-3t 2 3q9qvs8-d [facility] 00:00:00 00:00:00 MIRTA e2-5up9-31i 87b-4174-a ealt 0-vl3seb971 470-82o193 0f4 1573c2 2016-08-26 2016-08-26 Outpatient [facility] [id number] [facility] 00:00:00 00:00:00 H, PROVIDER [facility] 2016-08-26 2016-08-26 Outpatient [facility] 2bx5v0g7-8y w567jguk-p [facility] 00:00:00 00:00:00 H, PROVIDER e2-6rs3-41u a1b-4a 92-8 ealth 0-gk1van551 w13-4ser04 0f4 1rk810 2016-08-26 2016-08-26 Outpatient MENDIETA, [facility] 1cv4c9z9-1n da qwp33m-6 [facility] 00:00:00 00:00:00 CHRISTINA e2-5ir8-61g 81b-44be- a ealt 0-cs0env769 452-3h1757 0f4 0q1833 2016-08-26 2016-08-26 Outpatient IRIZARRY, [facility] 7fm6b7m6-0z afb 6fn68-9 [facility] 00:00:00 00:00:00 RAMYELINE e2-4zn9-50i 026-4182- b ealth 0-mh4nfj324 11d-6m1907 0f4 8e3890 2016-08-26 2016-08-26 Outpatient OMORI, [facility] 0eg5f7e8-6x c21 101ca-e [facility] 00:00:00 00:00:00 NAIF e2-9gf5-73g x0w-2836- a ealt 0-ym4rjn856 ec7-e14424 0f4 92c4e9 2016-08-03 2016-08-03 Outpatient TIMA, [facility] icw259kl-5d e56 6fg88-u [facility] 16:13:00 16:13:00 OSMAN 22-4926-a4f 17d-4116-b ealth f-49545623l 320-16acc1 alexander 11df8e 2016-07-29 2016-07-29 Outpatient [facility] [id number] [facility] 00:00:00 00:00:00 H, PROVIDER ea lth 2016-07-29 2016-07-29 Outpatient [facility] 1vp5q8n6-7v [id number] [facility] 00:00:00 00:00:00 H, PROVIDER e2-7dy4-45l 2c6-43 ca-8 ealth 0-pj9auk864 fe8-48fadf 0f4 54c2ba 2016-07-29 2016-07-29 Outpatient TIMA, [facility] mgz778rx-6z a6f 89gw3-5 [facility] 00:00:00 00:00:00 OSMAN 22-4926-a4f 6ad-4eac-9 ealt f-30628975q ab0-86e98c alexander c4845l 2016-07-29 2016-07-29 Outpatient DIANE, [facility] obh946sc-1u d d21jz56-4 [facility] 00:00:00 00:00:00 MIRTA 22-4926-a4f 4p7-97al-9 ealt f-79879166d 67a-3d9ddd alexander ofb927 2016-07-24 2016-07-24 Outpatient [facility] [id number] [facility] 00:00:00 00:00:00 H, PROVIDER ea lth 2016-07-24 2016-07-24 Outpatient [facility] 2sf1b1f2-9p [id number] [facility] 00:00:00 00:00:00 H, PROVIDER e2-7br2-86z 046-4f 02-a [facility] 0-dv4xgt340 3d5-63fy16 0f4 062d54 2016-07-24 2016-07-24 Outpatient ISAURA, [facility] ofm008hw-5w d2 146t57-i [facility] 00:00:00 00:00:00 CHRISTINA 22-4926-a4f b2q-81cu- b ealt f-98329221l j3d-720951 alexander c19d1a 2016-07-24 2016-07-24 Outpatient OMORI, [facility] zti302ls-0n e3f [id number]-b [facility] 00:00:00 00:00:00 NAIF 22-4926-a4f s1s-33i8- 8 ealt f-[id number] bba-be69db alexander [id number] 2016-07-17 2016-07-17 Outpatient NUNEZ, [facility] [id number] [facility] 00:00:00 00:00:00 GAYTAJOSH 22-4926-a4f p64-9039-t ealth f-[id number] ec6-9ef36c alexander [id number] 8287-04-20 2016-07-16 Outpatient [facility] [id number] [facility] 00:00:00 00:00:00 H, PROVIDER casey molina 2016-07-16 2016-07-16 Outpatient [facility] [id number] [facility] 00:00:00 00:00:00 H, PROVIDER e2-8ql3-09g f7c-42 66-9 [facility] 0-om5dwd309 [id number] 0f4 1876fa 2016-07-16 2016-07-16 Outpatient IRIZARRY, [facility] [id number]-y [facility] 00:00:00 00:00:00 KATELINE 45-5o4e-q7u 17f-442e- a ealt d-[id number] ddf-[id number] 354 [id number] 2016-07-16 2016-07-16 Outpatient CONTRERAS, [facility] [id number] c [id number]-c [facility] 00:00:00 00:00:00 MIRTA 22-4926-a4f 06b-4903-a ealt f-[id number] x91-6p6r01 alexander [id number] 2016-07-16 2016-07-16 Outpatient CHARLY BARDALES [facility] [id number]-x [facility] 00:00:00 00:00:00 45-4z2r-p4y 049-4b28-8 ealt d-[id number] 36f-49e728 354 pcw853 2016-07-16 2016-07-16 Outpatient NUNEZ, [facility] [id number] 2cb [id number]-u [facility] 00:00:00 00:00:00 GAYTARI 22-4926-a4f ec3-43e2-b ealt f-[id number] 989-acffbb alexander acf4d2 2016-07-14 2016-07-14 Outpatient [facility] [id number] Access 00:00:00 00:00:00 H, PROVIDER casey lala 2016-07-14 2016-07-14 Outpatient [facility] [id number] [facility] 00:00:00 00:00:00 H, PROVIDER e2-1av4-10y 52f-4d 8d-[facility] 0-qt7chc448 [id number] 0f4 5cbb75 2016-07-14 2016-07-14 Outpatient CONTRERAS, [facility] [id number] f [id number] [facility] 00:00:00 00:00:00 MIRTA 22-4926-a4f 486-43ef-b ealth f-[id number] 58e-c764a4 alexander [id number] 2016-07-14 2016-07-14 Outpatient TIMA, [facility] [id number] b38 [id number]-1 [facility] 00:00:00 00:00:00 OSMAN 22-4926-a4f 4z0-9l59-g ealth f-[id number] 532-cac9af alexander [id number] 2016-07-06 2016-07-06 Outpatient [facility] [id number] [facility] 00:00:00 00:00:00 H, PROVIDER casey [facility] 2016-07-06 2016-07-06 Outpatient [facility] [id number] [facility] 00:00:00 00:00:00 H, PROVIDER e2-8fz4-83b 7e3-46 ad-b lt 0-ws1fpx309 60a-75384d 0f4 [id number] 3379-04-10 2016-07-06 Outpatient TIMA, [facility] [id number] ca6 [id number]-c [facility] 00:00:00 00:00:00 OSMAN 22-4926-a4f 308-477e-b ealth f-[id number] 6o8-x1r75x alexander befcac 2016-07-06 2016-07-06 Outpatient CONTRERAS, [facility] [id number] a [id number] [facility] 00:00:00 00:00:00 MIRTA 22-4926-a4f y96-8h66-7 ealth f-[id number] w0u-yjk97c alexander c4911i 2016-07-01 2016-07-01 Outpatient [facility] [id number] [facility] 00:00:00 00:00:00 H, PROVIDER casey [facility] 2016-07-01 2016-07-01 Outpatient [facility] 4wa3x4p3-3v [id number] [facility] 00:00:00 00:00:00 H, PROVIDER e2-8km0-84h fbd-41 57-9 [facility] 0-rh3ugr255 3o8-92827z 0f4 13dfc5 2016-07-01 2016-07-01 Outpatient VERAMELA [facility] [id number] [facility] 00:00:00 00:00:00 45-3n1f-t6p 8ef-44fa-9 ealt d-[id number] 145-03bbe1 354 734d1e 2016-07-01 2016-07-01 Outpatient IRIZARRY, [facility] [id number] [id number]-f [facility] 00:00:00 00:00:00 KATELINE 45-6y4f-l9i u53-0kip- 9 ealt d-[id number] 2h1-4qc3g0 354 [id number] 0501-04-02 2016-06-28 Outpatient TIMA, [facility] ayb545sf-8y ba4 [id number] [facility] 00:00:00 00:00:00 OSMAN 22-4926-a4f fb6-4103-8 [facility] f-[id number] y35-5031i4 alexander 2d497q 2016-06-25 2016-06-25 Outpatient [facility] [id number] [facility] 00:00:00 00:00:00 H, PROVIDER casey lala 2016-06-25 2016-06-25 Outpatient [facility] [id number] [facility] 00:00:00 00:00:00 H, PROVIDER gabby-4zl7-80b 98e-47 c8-a [facility] 0-ke3sop592 i4h-c605z7 0f4 4f1aaa 2016-06-25 2016-06-25 Outpatient TIMA, [facility] [id number] 9e0 [id number]-7 [facility] 00:00:00 00:00:00 OSMAN 22-4926-a4f 533-4298-a ealth f-[id number] 9m7-z8r5nd alexander [id number] 1794-03-30 2016-06-25 Outpatient ISAURA, [facility] [id number] [id number] [facility] 00:00:00 00:00:00 CHRISTINA 45-1j3s-z6l u10-6363- a ealth d-[id number] 74d-bc9f79 354 [id number] 2016-06-25 2016-06-25 Outpatient OMORI, [facility] [id number] [facility] 00:00:00 00:00:00 NAIF 45-9f3x-u3r 7y8-03z2- b ealth d-[id number] def-275d83 354 xj573o 2016-06-25 2016-06-25 Outpatient DIANE, [facility] [id number]-[id number] f [id number] [facility] 00:00:00 00:00:00 MIRTA 22-4926-a4f i6s-40qm-g ealth f-[id number] 2x6-475nb0 alexander bc1d2c 2016-06-08 2016-06-08 Outpatient [facility] [id number] [facility] 00:00:00 00:00:00 H, PROVIDER casey molina 2016-06-08 2016-06-08 Outpatient [facility] [id number] [facility] 00:00:00 00:00:00 H, PROVIDER e2-8vw4-18u d53-4b 39-b ealth 0-ce6vtr280 49d-bb0c97 0f4 [id number] 2016-06-08 2016-06-08 Outpatient CHARLY BARDALES [facility] [id number] [facility] 00:00:00 00:00:00 45-5i2w-w2g 84c-42c0-9 ealth d-[id number] 644-e9c44e 354 a4d7b9 2016-06-08 2016-06-08 Outpatient IRIZARRY, [facility] [id number] cdb 45194-x [facility] 00:00:00 00:00:00 KATELINE 45-7x8n-a8v 41d-4957- b ealt d-[id number] 9n1-g0xydp 354 38a8c2 2016-05-19 2016-05-19 Outpatient [facility] [id number] [facility] 00:00:00 00:00:00 H, PROVIDER casey lala 2016-05-19 2016-05-19 Outpatient [facility] 6fm4j4y8-6k 8h1cc4v1-9 [facility] 00:00:00 00:00:00 H, PROVIDER e2-1zn9-82u tonya-4c 95-a ealth 0-hw7jge414 a4x-y2dy3u 0f4 0e2daa 2016-05-19 2016-05-19 Outpatient TIMA, [facility] 0xi3w1q7-0z fc5 4q07q-9 [facility] 00:00:00 00:00:00 OSMAN e2-1jw6-41p ad3-40d5-b ealth 0-tb2dug955 bc9-a48b2d 0f4 45x819 2016-05-19 2016-05-19 Outpatient CONTRERAS, [facility] 9jb0i7v1-9x 8 zh229c4-9 [facility] 00:00:00 00:00:00 MIRTA e2-9he0-06l 5x5-1411-r ealth 0-ym5wng600 h94-y9n283 0f4 39beb0 2016-05-15 2016-05-15 Outpatient [facility] [id number] Access[facility] 00:00:00 00:00:00 H, PROVIDER casey molina 2016-05-15 2016-05-15 Outpatient [facility] 9of7h7k6-0v y37uw67h-c Access[facility] 00:00:00 00:00:00 H, PROVIDER e2-3td1-63s bbe-4f 60-b ealth 0-gk4zuf049 941-41ae95 0f4 ff7690 2016-05-15 2016-05-15 Outpatient DIANE, [facility] 30o0338f-11 f v3m8x18-3 [facility] 00:00:00 00:00:00 MIRTA 45-5r1a-q3w 5m8-7736-8 ealt d-i3y552229 311-r4u233 354 835fae 2016-05-15 2016-05-15 Outpatient OMORI, [facility] 73l3486o-72 2b7 85u50-9 Access[facility] 00:00:00 00:00:00 NAIF 45-5u6n-y8b 373-4ac8- b ealth d-x8r723848 3y2-d723tk 354 yo0120 2016-05-15 2016-05-15 Outpatient ISAURA, [facility] 34x9674o-09 d3 1bcvz6-9 Access[facility] 00:00:00 00:00:00 CHRISTINA 45-2q5p-u1i x03-9719- a ealt d-v0n289359 [facility]880[facility] 354 73a061 2016-05-15 2016-05-15 Outpatient IRIZARRY, [facility] 92x6984d-01 e10 s3226-0 Access[facility] 00:00:00 00:00:00 KATELINE 45-9p8q-k3x u3i-3n8l- a ealth d-f4p044810 358-d132b6 354 e444e3 2016-05-11 2016-05-11 Outpatient [facility] 107 [id number] Access[facility] 00:00:00 00:00:00 H, PROVIDER casey molina 2016-05-11 2016-05-11 Outpatient [facility] 7kd1h4v1-4u 8f805q2w-9 Access[facility] 00:00:00 00:00:00 H, PROVIDER e2-1oz0-28g 986-4e 16[facility] 0-yr6fth826 2r4-64f848 0f4 127184 3994-02-13 2016-05-11 Outpatient FOREIGN, [facility] [id number]-87 65gr96d6-1 Access[facility] 00:00:00 00:00:00 FRANKLIN 45-4o3j-q2j ee0-4498-a ealth d-x4o204650 cb7-627bcc 354 62c67e 2016-05-11 2016-05-11 Outpatient DIANE, [facility] 88z3759e-52 f 0yr1rra-m Access[facility] 00:00:00 00:00:00 MIRTA 45-7o3t-q8t 36e-4988-b ealth [facility]b6c346020 [facility] 727e3d 2016-05-08 2016-05-08 Outpatient [facility] 107 [id number] Access[facility] 00:00:00 00:00:00 H, PROVIDER ea lth 2016-05-08 2016-05-08 Outpatient [facility] 1db5q5t0-6a 8401r48h-9 Access[facility] 00:00:00 00:00:00 H, PROVIDER e2-8wv2-98z e1f-48 2e-8 ealth 0-xl5swu940 2db-ewd964 0f4 bc16c2 2016-05-08 2016-05-08 Outpatient SHELBY, [facility] 4lv4t4q2-8i 18c i4500-f Access[facility] 00:00:00 00:00:00 SAMANTHA e2-2tr6-37k 27d-42df- a ealth 0-fe9cpv534 bb7-42873f 0f4 16k058 2016-05-08 2016-05-08 Outpatient DIANE, [facility] 3dv9h3d1-5d 3 s300v7v-1 Access[facility] 00:00:00 00:00:00 MIRTA e2-2ad4-55n 353-45e9-a ealth 0-sw9iso188 be5-j85163 0f4 8412be 2016-05-05 2016-05-05 Outpatient SHELBY, [facility] 5km6j0l9-9y 773 u4w0h-7 Access[facility] 00:00:00 00:00:00 SAMANTHA e2-9vt0-20r 09b-4a43- a ealth 0-wg5oiy584 83f-02ffd4 0f4 8eed89 2016-05-04 2016-05-04 Outpatient [facility] 107 [id number] Access[facility] 00:00:00 00:00:00 H, PROVIDER casey [facility] 2016-05-04 2016-05-04 Outpatient [facility] HC 4kl5f2l3-1f 02nxpud0-0 Access[facility] 00:00:00 00:00:00 H, PROVIDER e2-9jm3-98a 964-4e b0-8 ealth 0-ep5gfz779 fd5-e283fd 0f4 1cba2b 2016-05-04 2016-05-04 Outpatient SHELBY, HC 8sj1i6h4-8w c7e 0o992-1 Access[facility] 00:00:00 00:00:00 SAMANTHA e2-9su4-74m 677-4bd7- b ealth 0-ki6qmc473 14f-f6fe70 0f4 50108e 2016-05-04 2016-05-04 Outpatient CONTRERAS, [facility] 3lx3c5d0-6o d a18464y-e Access[facility] 00:00:00 00:00:00 MIRTA e2-1ie9-68e 294-4fb9-a ealth 0-hn1lik379 51f-f628b0 0f4 z8670q 2016-04-27 2016-04-27 Outpatient [facility] [id number] Access[facility] 00:00:00 00:00:00 H, PROVIDER casey [facility] 2016-04-27 2016-04-27 Outpatient [facility] HC 0rc6d0n1-3l n289za52-2 Access[facility] 00:00:00 00:00:00 H, PROVIDER e2-4hh5-82t 0c7-4f f1-8 ealth 0-bc0fww542 de9-3790eb 0f4 4239d8 2016-04-27 2016-04-27 Outpatient CONTRERAS, HC 7cg4o9v1-4l 3 7war849-9 [facility] 00:00:00 00:00:00 MIRTA e2-9cj9-74l 1d4-7m31-q ealth 0-uj0vyz823 4w5-i28712 0f4 8l563d 2016-04-27 2016-04-27 Outpatient DESTINY, [facility] 8ud1h9n1-9h edf 7h7x8-l Access[facility] 00:00:00 00:00:00 MELVA e2-2pt7-83w 4fb-4099-9 ealth 0-xw4azb948 ca8-42b5cf 0f4 047ded 2016-04-24 2016-04-24 Outpatient [facility] [id number] Access[facility] 00:00:00 00:00:00 H, PROVIDER ea lth 2016-04-24 2016-04-24 Outpatient [facility] 2of4y9j2-0k iu6ccx6o-u [facility] 00:00:00 00:00:00 H, PROVIDER e2-5bj2-47r 5aa-41 ee-8 ealth 0-xa9zmf087 bfc-l48188 0f4 u5585n 2016-04-24 2016-04-24 Outpatient FOREIGN, [facility] 71x7398n-00 r86nm451-6 Access[facility] 00:00:00 00:00:00 FRANKLIN 45-4o5h-b8o 5g6-0p21-1 ealth d-z9k795001 fee-1fm180 354 f7e46e 2016-04-24 2016-04-24 Outpatient ISAURA, [facility] 86u2272u-14 47 4d06w0-8 Access[facility] 00:00:00 00:00:00 CHRISTINA 45-9t9m-o2y 287-4cce- 9 ealth d-e1i771830 4c4-493b19 354 0c8ebc 2016-04-24 2016-04-24 Outpatient SHELBY, [facility] 7zl5g1a1-6v 978 7q611-m Access[facility] 00:00:00 00:00:00 SAMANTHA e2-9hi1-21b 3ec-4aa4- 8 ealth 0-sb9gdi698 e72-88znz1 0f4 cfdb01 2016-04-24 2016-04-24 Outpatient CONTRERAS, [facility] 0eu4c6e1-4q 3 o2fp6w3-7 [facility] 00:00:00 00:00:00 MIRAT e2-2ku5-25r 39f-490c-b ealth 0-ot3zkl345 8ce-a94b3d 0f4 611fdf 2016-04-24 2016-04-24 Outpatient DIANE, [facility] 85e0929o-53 2 8931983-p Access[facility] 00:00:00 00:00:00 MIRTA 45-1c8f-s9p 86a-4439-a ealth d-d6l009989 l4n-87a5pm 354 218d45 2016-04-24 2016-04-24 Outpatient IRIZARRY, [facility] 56r1601h-28 fc7 8687c-4 Access[facility] 00:00:00 00:00:00 KATELINE 45-3j1j-q3q s3u-8e42- a ealth d-v8n711772 k0o-7mu048 354 9f3b30 2016-04-24 2016-04-24 Outpatient OMORI, [facility] 56e1903w-84 d38 r0y30-8 Access[facility] 00:00:00 00:00:00 NAIF 45-3f2l-e3u 768-4bfb- b ealth d-u5k225376 h0a-33a8u3 354 4dd6fd 2016-04-23 2016-04-23 Outpatient [facility] 107 [id number] Access 00:00:00 00:00:00 H, PROVIDER ea lth 2016-04-23 2016-04-23 Outpatient [facility] 5of5p3o0-4l g8qx9q38-k Access 00:00:00 00:00:00 H, PROVIDER e2-4oc3-08i be8-4b 21-9 ealt 0-fo2obt764 3dc-5f1e84 0f4 22d77d 2016-04-23 2016-04-23 Outpatient DIANE, [facility] 81s3958f-70 6 t30q37j-k [facility] 00:00:00 00:00:00 MIRTA 45-9n4m-b4s 994-45ef-b ealth d-t5u797352 6f6-j9712w 354 51ffb4 2016-04-23 2016-04-23 Outpatient FOREIGN, [facility] 98o7473z-13 21v401hd-l Access[facility] 00:00:00 00:00:00 FRANKLIN 45-8f5k-w9r eaf-4e51-9 [facility] d-e3f022923 7u6-a6n941 354 7999a2 2016-04-20 2016-04-20 Outpatient [facility] [id number] Access[facility] 00:00:00 00:00:00 H, PROVIDER casey [facility] 2016-04-20 2016-04-20 Outpatient [facility] 2ie7s5z3-0n [id number] Access[facility] 00:00:00 00:00:00 H, PROVIDER e2-2ln4-40j a9b-45 15-9 ealt 0-sg8frz344 3x5-463798 0f4 943210 3504-01-23 2016-04-20 Outpatient DESTINY, [facility] 3fq3e7y6-9y 407 34f9x-b Access[facility] 00:00:00 00:00:00 MELVA e2-4dl0-78i 067-4720-a ealt 0-gj8iua677 679-47bd8d 0f4 636a60 2016-04-20 2016-04-20 Outpatient DIANE, [facility] 3nt4m1k4-8z 2 86egn5r-i [facility] 00:00:00 00:00:00 MIRTA e2-7lq8-12j 373-4fb8-8 ealt 0-lx8rgn939 1c9-th5322 0f4 3b9fb0 2016-04-17 2016-04-17 Outpatient [facility] 107 [id number] Access 00:00:00 00:00:00 H, PROVIDER casey [facility] 2016-04-17 2016-04-17 Outpatient [facility] 7uw1t2n1-9l 5r391u7e-y [facility] 00:00:00 00:00:00 H, PROVIDER e2-8qb2-10i 7cd-42 99-a ealth 0-ho0wmg961 h29-y9o5c0 0f4 685c34 2016-04-07 2016-04-07 Outpatient [facility] [id number] [facility] 00:00:00 00:00:00 H, PROVIDER casey [facility] 2016-04-07 2016-04-07 Outpatient [facility] 2wu7z7q5-6s 51b9yob9-t [facility] 00:00:00 00:00:00 H, PROVIDER e2-2ti1-13h f6e-4e 34-8 [facility] 0-pj9ccj996 026-e65fd2 0f4 3f7d68 2016-04-07 2016-04-07 Outpatient TIMA, [facility] sft538zi-8q 561 f2j75-d Access[facility] 00:00:00 00:00:00 OSMAN 22-4926-a4f j8q-0ti4-x [facility] f-99594704x 89b-711bf4 alexander cs569z 2016-04-07 2016-04-07 Outpatient TIMA, [facility] 6fn7l8b4-7h 515 ffab0-4 [facility] 00:00:00 00:00:00 OSMAN gabby-8vi6-69g 605-4ff2-a [facility] 0-kt0ihf609 18f-39n243 0f4 130b3b 2016-04-07 2016-04-07 Outpatient CONTRERAS, [facility] gjc508dh-0p 8 9588f82-w [facility] 00:00:00 00:00:00 MIRTA 22-4926-a4f 57e-49df-a [facility] f-54138884j 23e-006f72 alexander 2x662x 2016-04-06 2016-04-06 Outpatient [facility] [id number] [facility] 00:00:00 00:00:00 H, PROVIDER casey [facility] 2016-04-06 2016-04-06 Outpatient [facility] 0fd2n1c5-7o 6365s484-b Access[facility] 00:00:00 00:00:00 H, PROVIDER e2-0sj6-62e 933-4f 57-9 [facility] 0-kc6ajq936 cdf-f04f62 0f4 98h296 2016-04-06 2016-04-06 Outpatient TIMA, [facility] 8yt4v0o8-6l c72 r13k1-2 [facility] 00:00:00 00:00:00 OSMAN e2-6ib5-41q o5h-5j66-f ealt 0-to5nvk074 p05-65597o 0f4 ad40b7 2016-04-06 2016-04-06 Outpatient DIANE, [facility] 3eh1w7o5-2c 3 ve956l1-y [facility] 00:00:00 00:00:00 MIRTA e2-4kp4-54q eb2-4dd6-b ealt 0-gw3iym397 9fd-dc32d8 0f4 23m128 2016-03-26 2016-03-26 Outpatient [facility] [id number] [facility] 00:00:00 00:00:00 H, PROVIDER ea lth 2016-03-26 2016-03-26 Outpatient [facility] 3sy5b5c6-6j 8g95x2x7-e [facility] 00:00:00 00:00:00 H, PROVIDER e2-7ao5-15h f3d-41 a6-a lt 0-xo8ltw524 ba9-6872c4 0f4 418229 7871-12-29 2016-03-26 Outpatient OMORI, [facility] xdm639sd-8h 8bc 5zth7-9 [facility] 00:00:00 00:00:00 NAIF 22-4926-a4f 598-4848- a ealth f-99949582s 098-293a08 alexander os658v 2016-03-26 2016-03-26 Outpatient DIANE, [facility] hqs070wy-5g 1 qd07m1m-3 [facility] 00:00:00 00:00:00 MIRTA 22-4926-a4f 6ee-4ff7-b ealth f-74499108l 583-72eac5 alexander 326a7e 2016-03-26 2016-03-26 Outpatient IRIZARRY, [facility] aqc181jw-6n 576 7n7ux-0 [facility] 00:00:00 00:00:00 KATELINE 22-4926-a4f 3v9-0f07- 8 ealth f-20552384f 9cc-1d8643 alexander 0b4fc0 2016-03-25 2016-03-25 Outpatient [facility] [id number] [facility] 00:00:00 00:00:00 H, PROVIDER casey [facility] 2016-03-25 2016-03-25 Outpatient [facility] 0vu9v8d7-6n 36i46n51-e [facility] 00:00:00 00:00:00 H, PROVIDER e2-5il1-30y dd6-45 84-8 [facility] 0-pi5wcx042 0x3-t08ims 0f4 dq529f 2016-03-25 2016-03-25 Outpatient TIMA, [facility] nbk676ap-9h 560 58m87-7 [facility] 00:00:00 00:00:00 OSMAN 22-4926-a4f 065-44df-b ealt f-52893295m 819-2699d1 alexander 8f5a2f 2016-03-25 2016-03-25 Outpatient CONTRERAS, [facility] tpd109pm-1e 9 34om0b4-a [facility] 00:00:00 00:00:00 MIRTA 22-4926-a4f p00-0q4f-6 ealt f-90055105k 48f-8ad8b4 alexander b50eed 2016-03-06 2016-03-06 Outpatient [facility] [id number] [facility] 00:00:00 00:00:00 H, PROVIDER casey lala 2016-03-06 2016-03-06 Outpatient [facility] 7fo9d5y4-0w 8b5j04p8-0 [facility] 00:00:00 00:00:00 H, PROVIDER e2-7dr4-49m f9e-49 00-9 ealt 0-ym9hfa769 84c-3w4501 0f4 41q487 2016-03-06 2016-03-06 Outpatient MENDIETA, [facility] rld428vl-0l da 80fadd-2 [facility] 00:00:00 00:00:00 CHRISTINA 22-4926-a4f 9w8-0a6v- a ealt f-16620590x i51-546l13 alexander 4c9b58 2016-03-06 2016-03-06 Outpatient CONTRERAS, [facility] fvt120vo-3t 3 2p7rfgy-m [facility] 00:00:00 00:00:00 MIRTA 22-4926-a4f 95d-4894-8 ealt f-06379755h 41e-08a2d9 alexander 2085f3 2016-03-03 2016-03-03 Outpatient TIMA, [facility] tzr790bo-5i 11d p9741-5 [facility] 00:00:00 00:00:00 OSMAN Estrella-4926-a4f 1fb-4f0a-a ealt f-11176149e 780-10f568 alexander 2abc72 2016-02-28 2016-02-28 Outpatient [facility] [id number] [facility] 00:00:00 00:00:00 H, PROVIDER casey lth 2016-02-28 2016-02-28 Outpatient [facility] 5gp9w5g9-2z c60ds2w6-9 [facility] 00:00:00 00:00:00 H, PROVIDER e2-8vv9-63l 122-40 d1-a ealt 0-ak6pqg743 cd8-8e0dd4 0f4 c9ee35 2016-02-28 2016-02-28 Outpatient CONTRERAS, [facility] qlh540ik-7t 3 976td8p-4 [facility] 00:00:00 00:00:00 MIRTA 22-4926-a4f af1-4c49-8 ealth f-53655972m 251-7271d4 alexander 5a4e2f 2016-02-28 2016-02-28 Outpatient TIMA, [facility] giw875kn-0n 30e 6uuj5-8 [facility] 00:00:00 00:00:00 OSMAN 22-4926-a4f ca3-4e7f-9 ealt f-88876147u 6c4-z221v6 alexander 5fb9b9 2016-02-25 2016-02-25 Outpatient DESTINY, [facility] 8et2v1t9-4i 882 g2hp4-x [facility] 00:00:00 00:00:00 MELVA e2-4vu2-44m 3d1-8so3-5 ealt 0-dg4bcm878 398-z50398 0f4 be84b6 2016-02-24 2016-02-24 Outpatient DESTINY, [facility] 3so1f3w7-4v 970 6112d-8 [facility] 00:00:00 00:00:00 MELVA e2-8na7-78z 522-4d0a-8 ealth 0-vu1uiz788 3ed-40eaf8 0f4 0f12d2 2016-02-18 2016-02-18 Outpatient [facility] [id number] [facility] 00:00:00 00:00:00 H, PROVIDER ea lth 2016-02-18 2016-02-18 Outpatient [facility] 7bh7g9q6-8r f6ww16tf-6 [facility] 00:00:00 00:00:00 H, PROVIDER e2-9dv9-51b 82f-43 1a-b ealth 0-za3oqv235 j5o-96772r 0f4 5abef2 2016-02-18 2016-02-18 Outpatient DESTINY, [facility] 8ms1l9b8-8u 2fa 60u59-6 [facility] 00:00:00 00:00:00 MELVA e2-3fk4-78e m3c-6u0a-u ealt 0-am7cez905 279-b1d14b 0f4 e2f42d 2016-02-18 2016-02-18 Outpatient DIANE, [facility] 8cj3g2e2-3w 8 1x18z54-0 [facility] 00:00:00 00:00:00 MIRTA e2-5wq3-04b 8c2-0055-h ealth 0-fo7boi083 alexander-e606c4 0f4 149c44 2016-02-10 2016-02-10 Outpatient TIMA, [facility] 6dm4h8j8-5t 0be 1tbg8-g [facility] 00:00:00 00:00:00 OSMAN e2-3tc4-13e 0eb-4eb1-a ealth 0-tq6clk046 54f-335381 0f4 64ba33 2016-02-06 2016-02-06 [facility] [id number] [address] [place] [address] 10:32:12 15:36:05 NAIMA [facility] 2016-01-30 2016-01-30 Outpatient TIMA, [facility] mxj047vw-5r 003 80x63-7 [facility] 00:00:00 00:00:00 OSMAN 22-4926-a4f c43-4p95-i [facility] f-64243704j 30e-776d1f alexander b29d1e 2016-01-28 2016-01-28 Outpatient [facility] [id number] [facility] 00:00:00 00:00:00 H, PROVIDER casey lala 2016-01-28 2016-01-28 Outpatient [facility] 1kc8u1e4-2z 08e96v80-7 [facility] 00:00:00 00:00:00 H, PROVIDER e2-4gt3-60n d0d-4c 90-b ealt 0-yb4azg272 cac-1km785 0f4 21fba1 2016-01-28 2016-01-28 Outpatient SABRINAA, [facility] 0sk1p4g6-2s 2ec p39co-0 [facility] 00:00:00 00:00:00 MELVA e2-0bx3-11k m35-2vg2-5 ealt 0-ew7vwc043 4z2-v108wv 0f4 5909cc 2016-01-28 2016-01-28 Outpatient TIMA, [facility] 1bn6g9f4-7a af0 9x6h5-p [facility] 00:00:00 00:00:00 OSMAN e2-4rh6-27q 855-4c09-9 ealt 0-rr3bvy136 6u9-zx1d54 0f4 dd65fd 2016-01-28 2016-01-28 Outpatient DIANE, [facility] 5ee1q2m7-9f 2 jp66098-5 [facility] 00:00:00 00:00:00 MIRTA e2-2xi3-07c 0o9-2v78-4 ealt 0-hj1fjs459 y30-l19n55 0f4 226cf1 2016-01-27 2016-01-27 Outpatient [facility] [id number] [facility] 00:00:00 00:00:00 H, PROVIDER casey lala 2016-01-27 2016-01-27 Outpatient [facility] 6ob0z8g3-5s 718v9dz2-6 [facility] 00:00:00 00:00:00 H, PROVIDER e2-5do8-21v 6ce-4b 28-b ealth 0-ci9bnr353 8r0-02r279 0f4 311f8d 2016-01-27 2016-01-27 Outpatient TIMA, [facility] hno816dx-0d 169 q5z39-b [facility] 00:00:00 00:00:00 OSMAN 22-4926-a4f w55-36zk-e ealth f-44876392e 6ce-670016 alexander [id number] 2016-01-21 2016-01-21 Outpatient [facility] [id number] Access[facility] 00:00:00 00:00:00 H, PROVIDER [facility] 2016-01-21 2016-01-21 Outpatient [facility] [id number] Access[facility] 00:00:00 00:00:00 H, PROVIDER e2-3zs0-20r be4-45 98-a ealth [id number]-[id number] 0f4 [id number] 2016-01-21 2016-01-21 Outpatient HERNAEZ, [facility] [id number] Access[facility] 00:00:00 00:00:00 MAEVE 22-4926-a4f 971-46ae-b ealth [id number] alexander [id number] 2016-01-21 2016-01-21 Outpatient OMORI, [facility] [id number] Access[facility] 00:00:00 00:00:00 NAIF 22-4926-a4f 2r7-4l0r- b ealth f-[id number] alexander [id number] 2015-10-02 2015-10-02 Outpatient OMORI, [facility] [id number] Access[facility] 00:00:00 00:00:00 NAIF 22-4926-a4f 809-4330- b ealth f-[id number] alexander [id number] 2015-10-01 2015-10-01 Outpatient [facility] [id number] Access[facility] 00:00:00 00:00:00 H, PROVIDER [facility] 2015-10-01 2015-10-01 Outpatient [facility] [id number] Access[facility] 00:00:00 00:00:00 H, PROVIDER e2-1xs4-20m ed0-46 e6-9 [facility] 0-[id number] [id number] 0f4 [id number] 2015-10-01 2015-10-01 Outpatient OMORI, [facility] [id number] Access[facility] 00:00:00 00:00:00 NAIF 22-4926-a4f 9r0-41p0- 9 ealt f-[id number] alexander [id number] 2015-10-01 2015-10-01 Outpatient DIANE, [facility] [id number] Access[facility] 00:00:00 00:00:00 MIRTA 22-4926-a4f 6k8-5px6-m ealt f-[id number] alexander [id number] 2015-09-26 2015-09-26 Outpatient [facility] [id number] Access[facility] 00:00:00 00:00:00 H, PROVIDER [facility] 2015-09-26 2015-09-26 Outpatient [facility] [id number] Access[facility] 00:00:00 00:00:00 H, PROVIDER e2-2st3-21l 8ad-4b 20-[facility] [id number]-[id number]-c36p4q 0f4 [id number] 2015-09-26 2015-09-26 Outpatient DIANE, [facility] [id number] Access[facility] 00:00:00 00:00:00 MIRTA 22-4926-a4f 121-4c1d-b ealt f-[id number] alexander [id number] 2015-09-26 2015-09-26 Outpatient OMORI, [facility] [id number] Access[facility] 00:00:00 00:00:00 NAIF 22-4926-a4f 457-48de- a [facility] f-[id number]-q47l1d alexander [id number] 2015-09-12 2015-09-12 Outpatient [facility] [id number] Access 00:00:00 00:00:00 H, PROVIDER [facility] 2015-09-12 2015-09-12 Outpatient [facility] [id number] Access[facility] 00:00:00 00:00:00 H, PROVIDER april1as1-53z 126-41 a3-b [facility] [id number] 0f4 [id number] 2015-08-21 2015-08-21 Outpatient [facility] [id number] Access 00:00:00 00:00:00 H, PROVIDER [facility] 2015-08-21 2015-08-21 Outpatient [facility] [id number] Access 00:00:00 00:00:00 H, PROVIDER april5jr8-49w f2e-44 8f-b [facility] 0-ou4lgx208 [id number] 0f4 [id number] 2015-05-22 2015-05-22 Outpatient [facility] [id number] Access 00:00:00 00:00:00 H, PROVIDER [facility] 2015-05-22 2015-05-22 Outpatient [facility] [id number] Access 00:00:00 00:00:00 H, PROVIDER april4od6-58b 2c0-43 14-b [facility] [id number]-[id number] [id number] 0f4 [id number] 2015-05-21 2015-05-21 Outpatient [facility] [id number] Access 00:00:00 00:00:00 H, PROVIDER [facility] 2015-05-21 2015-05-21 Outpatient [facility] [id number] Access[facility] 00:00:00 00:00:00 H, PROVIDER e2-7sa9-67x 9f9-45 a3-8 ealth 0-[id number] [id number] 0f4 [id number] 2015-05-03 2015-05-03 Outpatient JONAS, [facility] [id number] Access[facility] 15:36:00 15:36:00 MAEVE e2-7nm6-84o b1r-4tq2-v ealth 0-zg9dxw310 [id number] 0f4 [id number] 4100-02-05 2015-05-03 Outpatient [facility] [id number] Access[facility] 00:00:00 00:00:00 H, PROVIDER [facility] 2015-05-03 2015-05-03 Outpatient [facility] [id number] Access[facility] 00:00:00 00:00:00 H, PROVIDER gabby-4pe9-08a da3-40 14-8 ealth 0-fe6uum937 [id number] 0f4 [id number] 2015-05-03 2015-05-03 Outpatient DIANE, [facility] [id number] Access[facility] 00:00:00 00:00:00 MIRTA e2-6ry1-51f b77-99e8-0 ealt 0-pl5vcg712 [id number]-[id number] 0f4 [id number] 2015-03-20 2015-03-20 Outpatient [facility] [id number] Access[facility] 00:00:00 00:00:00 H, PROVIDER [facility]y [facility] 2015-03-20 2015-03-20 Outpatient [facility] [id number] Access[facility] 00:00:00 00:00:00 H, PROVIDER e2-9vd9-87u da0-41 96-8 ealth 0-rv3gra752 65e-54ee37 0f4 [id number] 2015-03-15 2015-03-15 Outpatient [facility] [id number] Access 00:00:00 00:00:00 H, PROVIDER [facility] 2015-03-15 2015-03-15 Outpatient [facility] [id number] Access 00:00:00 00:00:00 H, PROVIDER gabby-9vu3-35u 7a2-4a a9-b [facility] [id number]-cn3ora872 [id number] 0f4 [id number] 2015-03-06 2015-03-06 Outpatient [facility] [id number] Access 00:00:00 00:00:00 H, PROVIDER [facility] 2015-03-06 2015-03-06 Outpatient [facility] [id number] Access 00:00:00 00:00:00 H, PROVIDER april2rb9-89c fdb-4d 58-a [facility] 0-[id number] [id number] 0f4 [id number] 2015-02-19 2015-02-19 Outpatient [facility] [id number] Access 00:00:00 00:00:00 H, PROVIDER [facility] 2015-02-19 2015-02-19 Outpatient [facility] [id number] Access 00:00:00 00:00:00 H, PROVIDER gabby-1hf6-20k 127-4b 58-a [facility] [id number] 0f4 [id number] 2015-02-18 2015-02-18 Outpatient [facility] [id number] Access 00:00:00 00:00:00 H, PROVIDER [facility] 2015-02-18 2015-02-18 [facility] - [place] [id number] Access 00:00:00 00:00:00 H, PROVIDER april1gm7-67n d47-48 5c-8 [facility] [id number] 0f4 [id number] 2015-02-12 2015-02-12 Outpatient [facility] [id number] Access 00:00:00 00:00:00 H, PROVIDER [facility] 2015-02-12 2015-02-12 Outpatient [facility] [place] [id number] AccessH 00:00:00 00:00:00 H, PROVIDER gabby-8mc7-58s 279-4f 28-b [facility] [id number] 0f4 [id number] 2015-02-11 2015-02-11 Outpatient [facility] [id number] Access 00:00:00 00:00:00 H, PROVIDER [facility] 2015-02-11 2015-02-11 Outpatient [facility] [place] [id number] Access 00:00:00 00:00:00 H, PROVIDER gabby-3xf4-28v 925-41 78-b [facility] [id number] 0f4 [id number] 2015-02-06 2015-02-06 Outpatient [facility] [id number] Access 00:00:00 00:00:00 H, PROVIDER [facility] 2015-02-06 2015-02-06 Outpatient [facility] [place] [id number] Access 00:00:00 00:00:00 H, PROVIDER gabby-6lx8-82o 2a8-49 15-a [facility] [id number] 0f4 [id number] 2015-01-24 2015-01-24 Outpatient [facility] [id number] Access 00:00:00 00:00:00 H, PROVIDER [facility] 2015-01-24 2015-01-24 Outpatient [facility] [place] [id number] Access 00:00:00 00:00:00 H, PROVIDER april0yh3-12d f80-44 d8-a [facility] 0-[id number] [id number] 0f4 [id number] 2015-01-08 2015-01-08 Outpatient [facility] [id number] AccessH 00:00:00 00:00:00 H, PROVIDER casey [facility] 2015-01-08 2015-01-08 Outpatient [facility] [place] [id number] AccessH 00:00:00 00:00:00 H, PROVIDER e2-2dw7-01g 64f-4c a3-9 [facility] [id number] 0f4 [id number] 2015-01-01 2015-01-01 Outpatient [facility] [id number] AccessH 00:00:00 00:00:00 H, PROVIDER [facility] 2015-01-01 2015-01-01 Outpatient [facility] [place] [id number] AccessH 00:00:00 00:00:00 H, PROVIDER gabby-5vm8-51l 53f-43 97-b [facility] [id number] 0f4 [id number] 2014-12-27 2014-12-27 Outpatient [facility] [id number] Access 00:00:00 00:00:00 H, PROVIDER casey lala 2014-12-27 2014-12-27 Outpatient [facility] [place] [id number] AccessH 00:00:00 00:00:00 H, PROVIDER gabby-1xv3-66i ca7-44 22-9 [facility] 0-[id number] 0f4 [id number] 2014-12-07 2014-12-07 Outpatient [facility] [id number] Access 00:00:00 00:00:00 H, PROVIDER casey lala 2014-12-07 2014-12-07 Outpatient [facility] [place] [id number] AccessH 00:00:00 00:00:00 H, PROVIDER april9is6-93o c82-4a dd-a [facility] [id number] 0f4 [id number] 2014-05-08 2014-05-08 Outpatient [facility] [id number] AccessH 00:00:00 00:00:00 H, PROVIDER casey lala 2014-05-08 2014-05-08 Outpatient [facility] [place] [id number] AccessH 00:00:00 00:00:00 H, PROVIDER gabby-3bb3-98i e34-45 36-8 [facility] 0-[id number] 0f4 [id number] 2014-04-26 2014-04-26 Outpatient [facility] [id number] AccessH 00:00:00 00:00:00 H, PROVIDER [facility] 2014-04-26 2014-04-26 Outpatient [facility] [place] [id number] AccessH 00:00:00 00:00:00 H, PROVIDER april2ps1-07g ed4-4c e6-b [facility] [id number] 0f4 [id number] 2014-04-25 2014-04-25 Outpatient [facility] [id number] AccessH 00:00:00 00:00:00 H, PROVIDER [facility] 2014-04-25 2014-04-25 Outpatient [facility] [place] [id number] AccessH 00:00:00 00:00:00 H, PROVIDER april5zj6-53r 477-46 7f-9 [facility] [id number] 0f4 [id number] 2014-04-09 2014-04-09 Outpatient [facility] [id number] AccessH 00:00:00 00:00:00 H, PROVIDER [facility] 2014-04-09 2014-04-09 Outpatient [facility] [place] [id number] AccessH 00:00:00 00:00:00 H, PROVIDER april3pz4-84n 783-44 d2-9 [facility] [id number] 0f4 [id number] 2014-03-12 2014-03-12 Outpatient [facility] [id number] AccessH 00:00:00 00:00:00 H, PROVIDER casey lala 2014-03-12 2014-03-12 Outpatient [facility] [place] [id number] AccessH 00:00:00 00:00:00 H, PROVIDER e2-3fd4-81c d5c-45 e4-8 [facility] [id number] 0f4 [id number] Results Test Description Test Time Test Comments Results Result Comments Source HEPATITIS C PCR, QUANTITATIVE 2021-10-10 11:14:07 Test Item Value Reference Range Interpretation Comme nts HCV RESULT COMPONENT (BEAKER) (test HCV RNA not detected HCV RNA no t detected code = 2699) This test uses a Real-Time Polymerase Chain Reaction (RT-PCR) methodology and was performed using JENNIFER Ampliprep/JENNIFER TaqMan HCV test kit version 2.0 ([employer]).Reportable range for this assay is 15 - 100,000,000 IU per mL (1.18 - 8.00 Log IU/mL).HEPATITIS B SURFACE ANTIBODY 2021-10-08 10:30:00 Test Item Value Reference Range Interpretation Comments HEPATITIS B SURFACE ANTIBODY < mIU/mL <8.0 (BEAKER) (test code = 647) Flat Screen Worker ID - BSHEPATITIS B CORE ANTIBODY, [id number] 10:17:34 Test Item Value Reference Range Interpretation Comments HEPATITIS B CORE TOTAL ANTIBODY Nonreactive Nonreactive (BEAKER) (test code = 497) Flat Screen Worker ID - BSHEPATITIS B SURFACE [id number] 10:17:33 Test Item Value Reference Range Interpretation Comments HEPATITIS B SURFACE ANTIGEN (2) Nonreactive Nonreactive (BEAKER) (test code = 2585) Specimen is considered negative for HBsAg.COMPREHENSIVE METABOLIC PANEL 2021-09-10 08:39:28 Test Item Value Reference Range Interpretation Comments GLUCOSE (test code = 84 MG/DL 70-99 2216) BUN (test code = 44 MG/DL 6-20 H 2207) CREATININE (test 2.77 MG/DL 0.80-1.40 H code = 2214) eGFR (2020 CKD-EPI) 28 ML/MIN/1.73 >60 L (test code = 19336) CALC BUN/CREAT (test 16 RATIO -28 code = 2235) SODIUM (test code = 139 MEQ/L 650-135 9913) POTASSIUM (test code 5.1 MEQ/L 3.5-5.4 = 2228) CHLORIDE (test code 103 MEQ/L 95-107 = 2215) CARBON DIOXIDE (test 23 MEQ/L 19-31 code = 2206) CALCIUM (test code = 8.8 MG/DL 8.5-10.5 2208) PROTEIN, TOTAL (test 6.6 G/DL 6.1-8.3 code = 2229) ALBUMIN (test code = 3.9 G/DL 3.5-5.2 2200) CALC GLOBULIN (test 2.7 G/DL 1.9-3.7 code = 2240) CALC A/G RATIO (test 1.4 RATIO 1.0-2.6 code = 2234) BILIRUBIN, TOTAL 0.7 MG/DL See_Comment [Automated message] (test code = 2207) The syste m which generated this result transmit josé luis reference range : <=1.2. The refe rence range was not u sed to interpret th is result as normal/abnormal . ALKALINE PHOSPHATASE 117 U/L 40-118 (test code = 2203) AST (test code = 17 U/L 9-50 2217) ALT (test code = 17 U/L 5-50 2218) URIC [id number] 08:39:28 Test Item Value Reference Range Interpretation Comments URIC ACID (test 10.3 MG/DL 3.7-8.0 H UNLES S OTHERWISE code = 2233) INDICATED, ALL TESTING PERFORMED [facility] [address] [place] [address] 4 LABORATORY DIRE CTOR: Mackenzie BILLINGSLEY. CLIA NUMBER [id number] [place] [id number] HEMOGLOBIN [id number] 07:11:42 Test Item Value Reference Range Interpretation Comments HEMOGLOBIN A1c (test 7.9 % 4.2-5.6 H [facility] code = 66549) ASSOCIATION IDELINES FOR HGB A1C: PREDIABETES/INC REASED RISK . . . . . . . 5.7 -6.4% DIAGNOSIS OF D IABETES . . . . . . . . . > =6.5% WITH CONFIRM ATION OR APPROPRIATE SYM PTOMS NOTE: ASSAY MAY BE AFFECTED BY HEMOGLOBINOP ATHIES (SICKLE NANO L ANEMIA, S-C DISEASE, OTHERS ) OR ARTIFICIALLY LO WERED BY DECREASED RED C ELL SURVIVAL (HEMOLYTIC ANEM IAS, BLOOD LOSS, ETC.) . CONSIDER ALTERNATE TESTI NG OR LABORATORY CONS ULTATION. TSH, THIRD [id number] 09:21:17 Test Item Value Reference Range Interpretation Comments TSH, THIRD GENERATION (test code 2.780 UIU/ML 0.400-4.100 = 2821) VITAMIN D, 25 [id number] 06:54:58 Test Item Value Reference Range Interpretation [...] . . . . . NG/ML 30-100 COMPREHENSIVE METABOLIC [id number] 06:35:30 Test Item Value Reference Range Interpretation Comments GLUCOSE (test code = 295 MG/DL 70-99 H 2216) BUN (test code = 77 MG/DL 6-20 H 2207) CREATININE (test 3.31 MG/DL 0.80-1.40 H code = 2214) eGFR (2020 CKD-EPI) 22 ML/MIN/1.73 >60 L (test code = 60600) CALC BUN/CREAT (test 23 RATIO 6-28 code = 2235) SODIUM (test code = 141 MEQ/L 744-452 0896) POTASSIUM (test code 5.4 MEQ/L 3.5-5.4 = [...] MG/DL See_Comment [Automated message] (test code = 220) The syste m which generated this result transmit josé luis reference range : <=1.2. The refe rence range was not u sed to interpret th is result as normal/abnormal . ALKALINE PHOSPHATASE 132 U/L 40-118 H (test code = 2203) AST (test code = 14 U/L 50 2217) ALT (test code = 17 U/L 50 2218) URIC [id number] 06:35:30 Test Item Value Reference Range Interpretation Comments URIC ACID (test code = 2233) 11.0 MG/DL 3.7-8.0 H LIPID [id number] 06:35:30 Test Item Value Reference Range Interpretation [...] MOREINFORMATION , SEE CLIENT ANNOUNCE MENT AT [email or web address] RISK RATIO LDL/HDL 2.45 RATIO <3.55 (test code = 2238) HEMOGLOBIN [id number] 04:52:50 Test Item Value Reference Range Interpretation Comments HEMOGLOBIN A1c (test 11.1 % 4.2-5.6 H [facility] code = 10545) ASSOCIATION IDELINES FOR HGB A1C: PREDIABETES/INC REASED [...] OR LABORATORY CONS ULTATION. ALBUMIN/CREATININE RATIO, URINE, [id number] 04:35:05 Test Item Value Reference Range Interpretation Comments CREATININE, URINE, 36.1 MG/DL NOT ESTAB RANDOM (test code = 2072) ALBUMIN, URINE, 103.1 MG/DL NOT ESTAB RANDOM (test code = 59098) CALC 2856 MG/G <30 H Note: ALBUMIN/CREAT, RND Albumin/C reatinine ratio (test code = reference inter jamil 28581) reflects ADA and NKF guidelines. UNLESS OTHERWIS E INDICATED, ALL TESTING PERFORMED [facility] [address] [place] [address] 4 LABORATORY DIR GENESIS: HANNAH SHARP M.D. CLIA NUMBER [id number] CAP ACCREDITATION N O. [id number] CBC W/AUTO DIFF WITH [id number] 03:41:46 Test Item Value Reference Range Interpretation [...] RBCS 0.00 K/UL 0.00-0.11 (test code = 13686) XR FOOT LEFT COMPLETE 3 [id number] 11:37:33 [facility] CENTERName: FRANDY FORD : 1975 Sex: MEXAMINATION:XR [...] by: Best Mendieta MD 05/05/2021 11:37 AM [facility] [id number] Description: Albumin/Creatinine Ratio,Urine 2021-01-30 17:11:00 Test Item Value Reference Range Interpretation Comments Creatinine, Urine 54.5 mg/dL Not Estab. (test code = 2161-8) Albumin, Urine 2814.8 ug/mL Not Estab. Results confi rmed (test code = ondilution.<br/ >
P 43136-3) erformed by:
[facility] [place] ([place])

Alb/Creat Ratio 5165 mg/gcreat 0-29 H (test code = Normal: 9318-7) 0 - 29 Moderately incr eased: 30 - 300 Severely increa sed: >300

Perfo rmed by:
[facility] [place] ([place])

[facility] Description: Albumin/Creatinine Ratio,[id number] 17:11:00 Test Item Value Reference Range Interpretation Comments Creatinine, Urine 54.5 mg/dL Not Estab. (test code = 2161-8) Albumin, Urine 2814.8 ug/mL Not Estab. Results confi rmed (test code = ondilution.<br/ >
P 20982-9) erformed by:
[facility] [place] ([place])

Alb/Creat Ratio 5165 mg/gcreat 0-29 H (test code = Normal: 9318-7) 0 - 29 Moderately incr eased: 30 - 300 Severely increa sed: >300

[facility]med by:
[facility] ([place]

[facility] Description: Albumin/Creatinine Ratio,[id number] 17:11:00 Test Item Value Reference Range Interpretation Comments Creatinine, Urine 54.5 mg/dL Not Estab. (test code = 2161-8) Albumin, Urine 2814.8 ug/mL Not Estab. Results confi rmed (test code = ondilution.<br/ >
P 40588-2) erformed by:
[facility] [place] ([place])

Alb/Creat Ratio 5165 mg/gcreat 0-29 H (test code = Normal: 9318-7) 0 - 29 Moderately incr eased: 30 - 300 Severely increa sed: >300

Perfo rmed by:
[facility] [place] ([place])

[facility] Description: Albumin/Creatinine Ratio,[id number] 17:11:00 Test Item Value Reference Range Interpretation Comments Creatinine, Urine 54.5 mg/dL Not Estab. (test code = 2161-8) Albumin, Urine 2814.8 ug/mL Not Estab. Results confi rmed (test code = ondilution.<br/ >
P 82747-5) erformed by:
[facility] [place] ([place])

Alb/Creat Ratio 5165 mg/gcreat 0-29 H (test code = Normal: 9318-7) 0 - 29 Moderately incr eased: 30 - 300 Severely increa sed: >300

Perfo rmed by:
[facility] [place] ([place])

[facility] Description: Albumin/Creatinine Ratio,[id number] 17:11:00 Test Item Value Reference Range Interpretation Comments Creatinine, Urine 54.5 mg/dL Not Estab. (test code = 2161-8) Albumin, Urine 2814.8 ug/mL Not Estab. Results confi rmed (test code = ondilution.<br/ >
P 71730-7) erformed by:
[facility] [place] ([place])

Alb/Creat Ratio 5165 mg/gcreat 0-29 H (test code = Normal: 9318-7) 0 - 29 Moderately incr eased: 30 - 300 Severely increa sed: >300

Perfo rmed by:
[facility] [place] ([place])

[facility] Description: Albumin/Creatinine Ratio,[id number] 17:11:00 Test Item Value Reference Range Interpretation Comments Creatinine, Urine 54.5 mg/dL Not Estab. (test code = 2161-8) Albumin, Urine 2814.8 ug/mL Not Estab. Results confi rmed (test code = ondilution.<br/ >
P 68031-0) erformed by:
[facility] ([place]

Alb/Creat Ratio 5165 mg/gcreat 0-29 H (test code = Normal: 9318-7) 0 - 29 Moderately incr eased: 30 - 300 Severely increa sed: >300

Perfo rmed by:
[facility] [place] ([place])

[facility] Description: Albumin/Creatinine Ratio,[id number] 17:11:00 Test Item Value Reference Range Interpretation Comments Creatinine, Urine 54.5 mg/dL Not Estab. (test code = 2161-8) Albumin, Urine 2814.8 ug/mL Not Estab. Results confi rmed (test code = ondilution.<br/ >
P 08152-6) erformed by:
[facility] [place] ([place])

Alb/Creat Ratio 5165 mg/gcreat 0-29 H (test code = Normal: 9318-7) 0 - 29 Moderately incr eased: 30 - 300 Severely increa sed: >300

Perfo rmed by:
[facility] [place] ([place])

[facility] Description: Albumin/Creatinine Ratio,[id number] 17:11:00 Test Item Value Reference Range Interpretation Comments Creatinine, Urine 54.5 mg/dL Not Estab. (test code = 2161-8) Albumin, Urine 2814.8 ug/mL Not Estab. Results confi rmed (test code = ondilution.<br/ >
P 34292-1) erformed by:
[facility] ([place])

Alb/Creat Ratio 5165 mg/gcreat 0-29 H (test code = Normal: 9318-7) 0 - 29 Moderately incr eased: 30 - 300 Severely increa sed: >300

Perfo rmed by:
[facility] [place] ([place])

[facility] Description: Albumin/Creatinine Ratio,[id number] 17:11:00 Test Item Value Reference Range Interpretation Comments Creatinine, Urine 54.5 mg/dL Not Estab. (test code = 2161-8) Albumin, Urine 2814.8 ug/mL Not Estab. Results confi rmed (test code = ondilution.<br/ >
P 22921-9) erformed by:
[facility] [place] ([place])

Alb/Creat Ratio 5165 mg/gcreat 0-29 H (test code = Normal: 9318-7) 0 - 29 Moderately incr eased: 30 - 300 Severely increa sed: >300

Perfo rmed by:
[facility] [place] ([place])

[facility] Description: Albumin/Creatinine Ratio,[id number] 17:11:00 Test Item Value Reference Range Interpretation Comments Creatinine, Urine 54.5 mg/dL Not Estab. (test code = 2161-8) Albumin, Urine 2814.8 ug/mL Not Estab. Results confi rmed (test code = ondilution.<br/ >
P 77820-3) erformed by:
[facility] [place] ([place])

Alb/Creat Ratio 5165 mg/gcreat 0-29 H (test code = Normal: 9318-7) 0 - 29 Moderately incr eased: 30 - 300 Severely increa sed: >300

Perfo rmed by:
[facility] ([place])

[facility] Description: Albumin/Creatinine Ratio,[id number] 17:11:00 Test Item Value Reference Range Interpretation Comments Creatinine, Urine 54.5 mg/dL Not Estab. (test code = 2161-8) Albumin, Urine 2814.8 ug/mL Not Estab. Results confi rmed (test code = ondilution.<br/ >
P 83286-7) erformed by:
[facility] ([place])

Alb/Creat Ratio 5165 mg/gcreat 0-29 H (test code = Normal: 9318-7) 0 - 29 Moderately incr eased: 30 - 300 Severely increa sed: >300

Perfo rmed by:
[facility] ([place])

[facility] Description: Albumin/Creatinine Ratio,[id number] 17:11:00 Test Item Value Reference Range Interpretation Comments Creatinine, Urine 54.5 mg/dL Not Estab. (test code = 2161-8) Albumin, Urine 2814.8 ug/mL Not Estab. Results confi rmed (test code = ondilution.<br/ >
P 89831-3) erformed by:
[facility] ([place])

Alb/Creat Ratio 5165 mg/gcreat 0-29 H (test code = Normal: 9318-7) 0 - 29 Moderately incr eased: 30 - 300 Severely increa sed: >300

Perfo rmed by:
[facility] ([place])

[facility] Description: Albumin/Creatinine Ratio,[id number] 17:11:00 Test Item Value Reference Range Interpretation Comments Creatinine, Urine 54.5 mg/dL Not Estab. (test code = 2161-8) Albumin, Urine 2814.8 ug/mL Not Estab. Results confi rmed (test code = ondilution.<br/ >
P 35216-2) erformed by:
[facility] [place] ([place])

Alb/Creat Ratio 5165 mg/gcreat 0-29 H (test code = Normal: 9318-7) 0 - 29 Moderately incr eased: 30 - 300 Severely increa sed: >300

Perfo rmed by:
[facility] [place] ([place])

[facility] Description: Albumin/Creatinine Ratio,[id number] 17:11:00 Test Item Value Reference Range Interpretation Comments Creatinine, Urine 54.5 mg/dL Not Estab. (test code = 2161-8) Albumin, Urine 2814.8 ug/mL Not Estab. Results confi rmed (test code = ondilution.<br/ >
P 60254-8) erformed by:
[facility] [place] ([place])

Alb/Creat Ratio 5165 mg/gcreat 0-29 H (test code = Normal: 9318-7) 0 - 29 Moderately incr eased: 30 - 300 Severely increa sed: >300

Perfo rmed by:
[facility] [place] ([place])

[facility] Description: Natriuretic peptide B [Mass/volume] in Serum or [id number] 13:36:00 Test Item Value Reference Range Interpretation Comments B-Type Natriuretic Peptide (test 396.8 pg/mL 0.0-100.0 H code = 22603-6) [facility] Description: Natriuretic peptide B [Mass/volume] in Serum or [id number] 13:36:00 Test Item Value Reference Range Interpretation Comments B-Type Natriuretic Peptide (test 396.8 pg/mL 0.0-100.0 H code = 84257-8) [facility] Description: Natriuretic peptide B [Mass/volume] in Serum or [id number] 13:36:00 Test Item Value Reference Range Interpretation Comments B-Type Natriuretic Peptide (test 396.8 pg/mL 0.0-100.0 H code = 90676-3) [facility] Description: Natriuretic peptide B [Mass/volume] in Serum or [id number] 13:36:00 Test Item Value Reference Range Interpretation Comments B-Type Natriuretic Peptide (test 396.8 pg/mL 0.0-100.0 H code = 42741-7) [facility] Description: Natriuretic peptide B [Mass/volume] in Serum or [id number] 13:36:00 Test Item Value Reference Range Interpretation Comments B-Type Natriuretic Peptide (test 396.8 pg/mL 0.0-100.0 H code = 17398-5) [facility] Description: Natriuretic peptide B [Mass/volume] in Serum or [id number] 13:36:00 Test Item Value Reference Range Interpretation Comments B-Type Natriuretic Peptide (test 396.8 pg/mL 0.0-100.0 H code = 27250-6) [facility] Description: Natriuretic peptide B [Mass/volume] in Serum or [id number] 13:36:00 Test Item Value Reference Range Interpretation Comments B-Type Natriuretic Peptide (test 396.8 pg/mL 0.0-100.0 H code = 00092-8) [facility] Description: Natriuretic peptide B [Mass/volume] in Serum or [id number] 13:36:00 Test Item Value Reference Range Interpretation Comments B-Type Natriuretic Peptide (test 396.8 pg/mL 0.0-100.0 H code = 66825-3) [facility] Description: Natriuretic peptide B [Mass/volume] in Serum or [id number] 13:36:00 Test Item Value Reference Range Interpretation Comments B-Type Natriuretic Peptide (test 396.8 pg/mL 0.0-100.0 H code = 44543-8) [facility] Description: Natriuretic peptide B [Mass/volume] in Serum or [id number] 13:36:00 Test Item Value Reference Range Interpretation Comments B-Type Natriuretic Peptide (test 396.8 pg/mL 0.0-100.0 H code = 05670-1) [facility] Description: Natriuretic peptide B [Mass/volume] in Serum or [id number] 13:36:00 Test Item Value Reference Range Interpretation Comments B-Type Natriuretic Peptide (test 396.8 pg/mL 0.0-100.0 H code = 90773-3) [facility] Description: Natriuretic peptide B [Mass/volume] in Serum or [id number] 13:36:00 Test Item Value Reference Range Interpretation Comments B-Type Natriuretic Peptide (test 396.8 pg/mL 0.0-100.0 H code = 92028-1) [facility] Description: Natriuretic peptide B [Mass/volume] in Serum or [id number] 13:36:00 Test Item Value Reference Range Interpretation Comments B-Type Natriuretic Peptide (test 396.8 pg/mL 0.0-100.0 H code = 43629-8) [facility] Description: Natriuretic peptide B [Mass/volume] in Serum or [id number] 13:36:00 Test Item Value Reference Range Interpretation Comments B-Type Natriuretic Peptide (test 396.8 pg/mL 0.0-100.0 H code = 60470-1) [facility] Description: Hemoglobin A1c/Hemoglobin.total in Blood 2021-01-30 12:27:00 Test Item Value Reference Range Interpretation Comments Hemoglobin A1c (test code 8.7 % 4.8-5.6 H = 4548-4) . Prediabetes: 5. 7 - 6.4 Diabetes : >6.4 Glycemic control for adults with diabetes: <7.0

P erformed by:
[facility] [place] ([place])

[facility] Description: Hemoglobin A1c/Hemoglobin.total in Blood 2021-01-30 12:27:00 Test Item Value Reference Range Interpretation Comments Hemoglobin A1c (test code 8.7 % 4.8-5.6 H = 4548-4) . Prediabetes: 5. 7 - 6.4 Diabetes : >6.4 Glycemic control for adults with diabetes: <7.0

P erformed by:
[facility] ([place])

[facility] Description: Hemoglobin A1c/Hemoglobin.total in Blood 2021-01-30 12:27:00 Test Item Value Reference Range Interpretation Comments Hemoglobin A1c (test code 8.7 % 4.8-5.6 H = 4548-4) . Prediabetes: 5. 7 - 6.4 Diabetes : >6.4 Glycemic control for adults with diabetes: <7.0

P erformed by:
[facility] ([place])

[facility] Description: Hemoglobin A1c/Hemoglobin.total in Blood 2021-01-30 12:27:00 Test Item Value Reference Range Interpretation Comments Hemoglobin A1c (test code 8.7 % 4.8-5.6 H = 4548-4) . Prediabetes: 5. 7 - 6.4 Diabetes : >6.4 Glycemic control for adults with diabetes: <7.0

P erformed by:
[facility] ([place])

[facility] Description: Hemoglobin A1c/Hemoglobin.total in Blood [...] ()

[facility] Description: Hemoglobin A1c/Hemoglobin.total in Blood 2021-01-30 12:27:00 Test Item Value Reference Range Interpretation Comments Hemoglobin A1c (test code 8.7 % 4.8-5.6 H = 4548-4) . Prediabetes: 5. 7 - 6.4 Diabetes : >6.4 Glycemic control for adults with diabetes: <7.0

P erformed by:
[facility] ()

[facility] Description: Hemoglobin A1c/Hemoglobin.total in Blood 2021-01-30 12:27:00 Test Item Value Reference Range Interpretation Comments Hemoglobin A1c (test code 8.7 % 4.8-5.6 H = 4548-4) . Prediabetes: 5. 7 - 6.4 Diabetes : >6.4 Glycemic control for adults with diabetes: <7.0

P erformed by:
[facility] ()

[facility] Description: Hemoglobin A1c/Hemoglobin.total in Blood 2021-01-30 12:27:00 Test Item Value Reference Range Interpretation Comments Hemoglobin A1c (test code 8.7 % 4.8-5.6 H = 4548-4) . Prediabetes: 5. 7 - 6.4 Diabetes : >6.4 Glycemic control for adults with diabetes: <7.0

P erformed by:
[facility] ([place])

[facility] Description: Hemoglobin A1c/Hemoglobin.total in Blood 2021-01-30 12:27:00 Test Item Value Reference Range Interpretation Comments Hemoglobin A1c (test code 8.7 % 4.8-5.6 H = 4548-4) . Prediabetes: 5. 7 - 6.4 Diabetes : >6.4 Glycemic control for adults with diabetes: <7.0

P erformed by:
[facility] ([place])

[facility] Description: Hemoglobin A1c/Hemoglobin.total in Blood 2021-01-30 12:27:00 Test Item Value Reference Range Interpretation Comments Hemoglobin A1c (test code 8.7 % 4.8-5.6 H = 4548-4) . Prediabetes: 5. 7 - 6.4 Diabetes : >6.4 Glycemic control for adults with diabetes: <7.0

P erformed by:
[facility] ([place])

[facility] Description: C reactive protein [Mass/volume] in Serum or [id number] 04:53:00 Test Item Value Reference Range Interpretation Comments C-Reactive Protein, Quant (test code 13 mg/L 0-10 H = 1987-07) [facility] Description: C reactive protein [Mass/volume] in Serum or [id number] 04:53:00 Test Item Value Reference Range Interpretation Comments C-Reactive Protein, Quant (test code 13 mg/L 0-10 H = 1987-07) [facility] Description: C reactive protein [Mass/volume] in Serum or [id number] 04:53:00 Test Item Value Reference Range Interpretation Comments C-Reactive Protein, Quant (test code 13 mg/L 0-10 H = 1988-5) [facility] Description: C reactive protein [Mass/volume] in Serum or [id number] 04:53:00 Test Item Value Reference Range Interpretation Comments C-Reactive Protein, Quant (test code 13 mg/L 0-10 H = 1987-07) [facility] Description: C reactive protein [Mass/volume] in Serum or [id number] 04:53:00 Test Item Value Reference Range Interpretation Comments C-Reactive Protein, Quant (test code 13 mg/L 0-10 H = 1987-07) [facility] Description: C reactive protein [Mass/volume] in Serum or [id number] 04:53:00 Test Item Value Reference Range Interpretation Comments C-Reactive Protein, Quant (test code 13 mg/L 0-10 H = 1987-07) [facility] Description: C reactive protein [Mass/volume] in Serum or [id number] 04:53:00 Test Item Value Reference Range Interpretation Comments C-Reactive Protein, Quant (test code 13 mg/L 0-10 H = 1987-07) [facility] Description: C reactive protein [Mass/volume] in Serum or [id number] 04:53:00 Test Item Value Reference Range Interpretation Comments C-Reactive Protein, Quant (test code 13 mg/L 0-10 H = 1987-07) [facility] Description: C reactive protein [Mass/volume] in Serum or [id number] 04:53:00 Test Item Value Reference Range Interpretation Comments C-Reactive Protein, Quant (test code 13 mg/L 0-10 H = 1987-07) [facility] Description: C reactive protein [Mass/volume] in Serum or [id number] 04:53:00 Test Item Value Reference Range Interpretation Comments C-Reactive Protein, Quant (test code 13 mg/L 0-10 H = 1987-07) [facility] Description: C reactive protein [Mass/volume] in Serum or [id number] 04:53:00 Test Item Value Reference Range Interpretation Comments C-Reactive Protein, Quant (test code 13 mg/L 0-10 H = 1987-07) [facility] Description: C reactive protein [Mass/volume] in Serum or [id number] 04:53:00 Test Item Value Reference Range Interpretation Comments C-Reactive Protein, Quant (test code 13 mg/L 0-10 H = 1987-07) [facility] Description: C reactive protein [Mass/volume] in Serum or [id number] 04:53:00 Test Item Value Reference Range Interpretation Comments C-Reactive Protein, Quant (test code 13 mg/L 0-10 H = 1987-07) [facility] Description: C reactive protein [Mass/volume] in Serum or [id number] 04:53:00 Test Item Value Reference Range Interpretation Comments C-Reactive Protein, Quant (test code 13 mg/L 0-10 H = 1987-07) [facility] Description: 25-hydroxyvitamin D3 [Mass/volume] in Serum or [id number] 03:48:00 Test Item Value Reference Range Interpretation Comments Vitamin D, 17.6 ng/mL 30.0-100.0 L Vitamin D defic iency has 25-Hydroxy (test been define d by the code = 50011-9) [place] and an Endocrine [facility] guidel ine as alevel of serum 25-OH vitamin D less than 20 ng/mL (1,2).The Endocrine Society went on to further define vitamin Dinsufficiency as a level between 21 and 29 ng/mL (2).1. IOM (Ins titute of Medicine). 2010 . Dietary reference int akes for calcium and D. [place]: [employer] .2. Dileep MF, Ela NC, Stephane blake EMERSON, et al. Evaluatio n, treatment, and prevention of vitamin D deficiency: an Endocrine Society clinica l practice guideline. [place] EM. 2010; 96(7):1911-30.< br/>
P erformed by:
[facility] ()

[facility] Description: 25-hydroxyvitamin D3 [Mass/volume] in Serum or [id number] 03:48:00 Test Item Value Reference Range Interpretation Comments Vitamin D, 17.6 ng/mL 30.0-100.0 L Vitamin D defic iency has 25-Hydroxy (test been define d by the code = 35357-7) [place] [facility] [place] and an Endocrine [facility] practice guidel ine as alevel of serum 25-OH vitamin D less than 20 ng/mL (1,2).The Endocrine Society went on to further define vitamin Dinsufficiency as a level between 21 and 29 ng/mL (2).1. IOM (Ins titute of Medicine). 2010 . Dietary reference int akes for calcium and D. [facility]: [employer] .2. Ela Oliveros, Stephane EMERSON, et al. Evaluatio n, treatment, and prevention of vitamin D deficiency: an Endocrine Society clinica l practice guideline. [place] EM. 2010; 96(7):1911-30.< br/>
P erformed by:
[facility] ([place])

[facility] Description: 25-hydroxyvitamin D3 [Mass/volume] in Serum or [id number] 03:48:00 Test Item Value Reference Range Interpretation Comments Vitamin D, 17.6 ng/mL 30.0-100.0 L Vitamin D defic iency has 25-Hydroxy (test been define d by the code = 48522-5) [place] and an Endocrine [facility] practice guidel ine as alevel of serum 25-OH vitamin D less than 20 ng/mL (1,2).The Endocrine Society went on to further define vitamin Dinsufficiency as a level between 21 and 29 ng/mL (2).1. IOM (Ins titute of Medicine). 2010 . Dietary reference int akes for calcium and D. [place]: [employer] .2. Ela Oliveros, Stephane EMERSON, et al. Evaluatio n, treatment, and prevention of vitamin D deficiency: an Endocrine Society clinica l practice guideline. [place] EM. 2010; 96(7):1911-30.< br/>
P erformed by:
[facility] ([place])

[facility] Description: 25-hydroxyvitamin D3 [Mass/volume] in Serum or [id number] 03:48:00 Test Item Value Reference Range Interpretation Comments Vitamin D, 17.6 ng/mL 30.0-100.0 L Vitamin D defic iency has 25-Hydroxy (test been define d by the code = 35569-1) [place] [employer] [place] and an Endocrine So ciety practice guidel ine as alevel of serum 25-OH vitamin D less than 20 ng/mL (1,2).The Endocrine Society went on to further define vitamin Dinsufficiency as a level between 21 and 29 ng/mL (2).1. IOM (Ins titute of Medicine). 2010 . Dietary reference int akes for calcium and D. [facility]: [employer] .2. Ela Oliveros, Stephane EMERSON, et al. Evaluatio n, treatment, and prevention of vitamin D deficiency: an Endocrine Society clinica l practice guideline. EM. 2010; 96(7):191-.< br/>
P erformed by:
[facility] ([place])

[facility] Description: 25-hydroxyvitamin D3 [Mass/volume] in Serum or [id number] 03:48:00 Test Item Value Reference Range Interpretation Comments Vitamin D, 17.6 ng/mL 30.0-100.0 L Vitamin D defic iency has 25-Hydroxy (test been define d by the code = 34996-2) [place] and an Endocrine [facility] practice guidel ine as alevel of serum 25-OH vitamin D less than 20 ng/mL (1,2).The Endocrine Society went on to further define vitamin Dinsufficiency as a level between 21 and 29 ng/mL (2).1. IOM (Ins titute of Medicine). 2010 . Dietary reference int akes for calcium and D. [facility]: [employer] .2. Ela Oliveros, Stephane EMERSON, et al. Evaluatio n, treatment, and prevention of vitamin D deficiency: an Endocrine Society clinica l practice guideline. EM. 2010; 96(7):191-.< br/>
P erformed by:
[facility] ([place])

[facility] Description: 25-hydroxyvitamin D3 [Mass/volume] in Serum or [id number] 03:48:00 Test Item Value Reference Range Interpretation Comments Vitamin D, 17.6 ng/mL 30.0-100.0 L Vitamin D defic iency has 25-Hydroxy (test been define d by the code = 23319-7) [place] and an Endocrine So ciety practice guidel ine as alevel of serum 25-OH vitamin D less than 20 ng/mL (1,2).The Endocrine Society went on to further define vitamin Dinsufficiency as a level between 21 and 29 ng/mL (2).1. IOM (Ins titute of Medicine). 2010 . Dietary reference int akes for calcium and D. [place]: [employer] .2. Ela Oliveros, Stephane EMERSON, et al. Evaluatio n, treatment, and prevention of vitamin D deficiency: an Endocrine Society clinica l practice guideline. EM. 2010; 96(7):1911-30.< br/>
P erformed by:
[facility] ()

[facility] Description: 25-hydroxyvitamin D3 [Mass/volume] in Serum or [id number] 03:48:00 Test Item Value Reference Range Interpretation Comments Vitamin D, 17.6 ng/mL 30.0-100.0 L Vitamin D defic iency has 25-Hydroxy (test been define d by the code = 84191-7) [place] and an Endocrine [facility] practice guidel ine as alevel of serum 25-OH vitamin D less than 20 ng/mL (1,2).The Endocrine Society went on to further define vitamin Dinsufficiency as a level between 21 and 29 ng/mL (2).1. IOM (Ins titute of Medicine). 2010 . Dietary reference int akes for calcium and D. [place]: [employer] .2. Ela Oliveros, Stephane EMERSON, et al. Evaluatio n, treatment, and prevention of vitamin D deficiency: an Endocrine Society clinica l practice guideline. EM. 2010; 96(7):1911-30.< br/>
P erformed by:
[facility] ([place])

[facility] Description: 25-hydroxyvitamin D3 [Mass/volume] in Serum or [id number] 03:48:00 Test Item Value Reference Range Interpretation Comments Vitamin D, 17.6 ng/mL 30.0-100.0 L Vitamin D defic iency has 25-Hydroxy (test been define d by the code = 21241-2) [place] and an Endocrine [facility] practice guidel ine as alevel of serum 25-OH vitamin D less than 20 ng/mL (1,2).The Endocrine Society went on to further define vitamin Dinsufficiency as a level between 21 and 29 ng/mL (2).1. IOM (Ins titute of Medicine). 2010 . Dietary reference int akes for calcium and D. [place]: [employer] .2. Ela Oliveros, Stephane EMERSON, et al. Evaluatio n, treatment, and prevention of vitamin D deficiency: an Endocrine Society clinica l practice guideline. [place] EM. 2010; 96(4):1911-30.< br/>
P erformed by:
[facility] ([place])

[facility] Description: 25-hydroxyvitamin D3 [Mass/volume] in Serum or [id number] 03:48:00 Test Item Value Reference Range Interpretation Comments Vitamin D, 17.6 ng/mL 30.0-100.0 L Vitamin D defic iency has 25-Hydroxy (test been define d by the code = 83819-1) [place] and an Endocrine [facility] practice guidel ine as alevel of serum 25-OH vitamin D less than 20 ng/mL (1,2).The Endocrine Society went on to further define vitamin Dinsufficiency as a level between 21 and 29 ng/mL (2).1. IOM (Ins titute of Medicine). 2010 . Dietary reference int akes for calcium and D. [place]: [employer] .2. Ela Oliveros, Stephane EMERSON, et al. Evaluatio n, treatment, and prevention of vitamin D deficiency: an Endocrine Society clinica l practice guideline. EM. 2010; 96(7):1911-30.< br/>
P erformed by:
[facility] ([place])

[facility] Description: 25-hydroxyvitamin D3 [Mass/volume] in Serum or [id number] 03:48:00 Test Item Value Reference Range Interpretation Comments Vitamin D, 17.6 ng/mL 30.0-100.0 L Vitamin D defic iency has 25-Hydroxy (test been define d by the code = 39816-5) [place] and an Endocrine [facility] practice guidel ine as alevel of serum 25-OH vitamin D less than 20 ng/mL (1,2).The Endocrine Society went on to further define vitamin Dinsufficiency as a level between 21 and 29 ng/mL (2).1. IOM (Ins titute of Medicine). 2010 . Dietary reference int akes for calcium and D. [place]: [employer] .2. Dileep AREVALO, Ela SANTA, Stephane blake EMERSON, et al. Evaluatio n, treatment, and prevention of vitamin D deficiency: an Endocrine Society clinica l practice guideline. EM. 2010; 96(7):1911-30.< br/>
P erformed by:
[facility] ([place])

[facility] Description: 25-hydroxyvitamin D3 [Mass/volume] in Serum or [id number] 03:48:00 Test Item Value Reference Range Interpretation Comments Vitamin D, 17.6 ng/mL 30.0-100.0 L Vitamin D defic iency has 25-Hydroxy (test been define d by the code = 85601-8) [place] and an Endocrine [facility] practice guidel ine as alevel of serum 25-OH vitamin D less than 20 ng/mL (1,2).The Endocrine Society went on to further define vitamin Dinsufficiency as a level between 21 and 29 ng/mL (2).1. IOM (Ins titute of Medicine). 2010 . Dietary reference int akes for calcium and D. [place]: [employer] .2. Ela Oliveros, Stephane EMERSON, et al. Evaluatio n, treatment, and prevention of vitamin D deficiency: an Endocrine Society clinica l practice guideline. EM. 2010; 96(7):1911-30.< br/>
P erformed by:
[facility] ([place])

[facility] Description: 25-hydroxyvitamin D3 [Mass/volume] in Serum or [id number] 03:48:00 Test Item Value Reference Range Interpretation Comments Vitamin D, 17.6 ng/mL 30.0-100.0 L Vitamin D defic iency has 25-Hydroxy (test been define d by the code = 48891-0) [place] and an Endocrine [facility] practice guidel ine as alevel of serum 25-OH vitamin D less than 20 ng/mL (1,2).The Endocrine Society went on to further define vitamin Dinsufficiency as a level between 21 and 29 ng/mL (2).1. IOM (Ins titute of Medicine). 2010 . Dietary reference int akes for calcium and D. [place]: [employer] .2. Dileep AREVALO, Ela SANTA, Stephane EMERSON, et al. Evaluatio n, treatment, and prevention of vitamin D deficiency: an Endocrine Society clinica l practice guideline. EM. 2010; 96(7):1911-30.< br/>
P erformed by:
[facility] ([place])

[facility] Description: 25-hydroxyvitamin D3 [Mass/volume] in Serum or [id number] 03:48:00 Test Item Value Reference Range Interpretation Comments Vitamin D, 17.6 ng/mL 30.0-100.0 L Vitamin D defic iency has 25-Hydroxy (test been define d by the code = 07376-5) [place] and an Endocrine [facility] practice guidel ine as alevel of serum 25-OH vitamin D less than 20 ng/mL (1,2).The Endocrine Society went on to further define vitamin Dinsufficiency as a level between 21 and 29 ng/mL (2).1. IOM (Ins titute of Medicine). 2010 . Dietary reference int akes for calcium and D. [facility]: [employer] .2. Ela Oliveros, Stephane EMERSON, et al. Evaluatio n, treatment, and prevention of vitamin D deficiency: an Endocrine Society clinica l practice guideline. EM. 2010; 96(7):1911-30.< br/>
P erformed by:
[facility] ([place])

[facility] Description: 25-hydroxyvitamin D3 [Mass/volume] in Serum or [id number] 03:48:00 Test Item Value Reference Range Interpretation Comments Vitamin D, 17.6 ng/mL 30.0-100.0 L Vitamin D defic iency has 25-Hydroxy (test been define d by the code = 95283-0) [place] and an Endocrine [facility] practice guidel ine as alevel of serum 25-OH vitamin D less than 20 ng/mL (1,2).The Endocrine Society went on to further define vitamin Dinsufficiency as a level between 21 and 29 ng/mL (2).1. IOM (Ins titute of Medicine). 2010 . Dietary reference int akes for calcium and D. [facility]: [employer] .2. Ela Oliveros, Stephane EMERSON, et al. Evaluatio n, treatment, and prevention of vitamin D deficiency: an Endocrine Society clinica l practice guideline. EM. 2010; 96(7):1911-30.< br/>
P erformed by:
[facility] ([place])

[facility] Description: Erythrocyte sedimentation rate by Westergren [id number] 03:06:00 Test Item Value Reference Range Interpretation Comments Sedimentation Rate-Westergren (test 27 mm/hr 0-15 H code = 4537-7) [facility] Description: Erythrocyte sedimentation rate by Westergren [id number] 03:06:00 Test Item Value Reference Range Interpretation Comments Sedimentation Rate-Westergren (test 27 mm/hr 0-15 H code = 4537-7) [facility] Description: Erythrocyte sedimentation rate by Westergren [id number] 03:06:00 Test Item Value Reference Range Interpretation Comments Sedimentation Rate-Westergren (test 27 mm/hr 0-15 H code = 4537-7) [facility] Description: Erythrocyte sedimentation rate by Westergren [id number] 03:06:00 Test Item Value Reference Range Interpretation Comments Sedimentation Rate-Westergren (test 27 mm/hr 0-15 H code = 4537-7) [facility] Description: Erythrocyte sedimentation rate by Westergren [id number] 03:06:00 Test Item Value Reference Range Interpretation Comments Sedimentation Rate-Westergren (test 27 mm/hr 0-15 H code = 4537-7) [facility] Description: Erythrocyte sedimentation rate by Westergren [id number] 03:06:00 Test Item Value Reference Range Interpretation Comments Sedimentation Rate-Westergren (test 27 mm/hr 0-15 H code = 4537-7) [facility] Description: Erythrocyte sedimentation rate by Westergren [id number] 03:06:00 Test Item Value Reference Range Interpretation Comments Sedimentation Rate-Westergren (test 27 mm/hr 0-15 H code = 4537-7) [facility] Description: Erythrocyte sedimentation rate by Westergren [id number] 03:06:00 Test Item Value Reference Range Interpretation Comments Sedimentation Rate-Westergren (test 27 mm/hr 0-15 H code = 4537-7) [facility] Description: Erythrocyte sedimentation rate by Westergren [id number] 03:06:00 Test Item Value Reference Range Interpretation Comments Sedimentation Rate-Westergren (test 27 mm/hr 0-15 H code = 4537-7) [facility] Description: Erythrocyte sedimentation rate by Westergren [id number] 03:06:00 Test Item Value Reference Range Interpretation Comments Sedimentation Rate-Westergren (test 27 mm/hr 0-15 H code = 4537-7) [facility] Description: Erythrocyte sedimentation rate by Westergren [id number] 03:06:00 Test Item Value Reference Range Interpretation Comments Sedimentation Rate-Westergren (test 27 mm/hr 0-15 H code = 4537-7) [facility] Description: Erythrocyte sedimentation rate by Westergren [id number] 03:06:00 Test Item Value Reference Range Interpretation Comments Sedimentation Rate-Westergren (test 27 mm/hr 0-15 H code = 4537-7) [facility] Description: Erythrocyte sedimentation rate by Westergren [id number] 03:06:00 Test Item Value Reference Range Interpretation Comments Sedimentation Rate-Westergren (test 27 mm/hr 0-15 H code = 4537-7) [facility] Description: Erythrocyte sedimentation rate by Westergren [id number] 03:06:00 Test Item Value Reference Range Interpretation [...] >59 L Am (test code = mL/min/1.73 81101-8) eGFR If Africn Am 36 >59 L In accor dance with (test code = mL/min/1.73 recommendations from 17880-2) the NKF-ASN Tas k force, [facility] is in the process of updating its eG FR calculation to the 2020 CKD-EPI creatinine equa tion that estimates kidney function witho ut a race variable.
< br/>Per formed by:
[facility] ([place])

BUN/Creatinine 24 9-20 H Ratio (test code = 3097-3) Sodium (test code = 139 mmol/L 593-618 5516-2) Potassium (test 4.9 mmol/L 3.5-5.2 code = 2823-3) Chloride (test code 100 mmol/L 96-106 = 2075-0) Carbon Dioxide, 23 mmol/L 20-29 Total (test code = 2028-9) Calcium (test code 9.0 mg/dL 8.7-10.2 = 17951-4) Protein, Total 6.5 g/dL 6.0-8.5 (test code = 2885-2) Albumin (test code 3.4 g/dL 4.0-5.0 L = 1751-7) Globulin, Total 3.1 g/dL 1.5-4.5 (test code = 81814-3) A/G Ratio (test 1.1 1.2-2.2 L code [...] Range Interpretation Comments Magnesium (test code = 78521-7) 1.8 mg/dL 1.6-2.3 [facility] Description: Microscopic [id number] 02:57:00 Test Item Value Reference Range Interpretation Comments WBC (test code = 5821-4) None seen 0-5 RBC (test code = 06738-3) None seen 0-2 Epithelial Cells (non renal) (test None seen 0-10 code = 5787-7) Epithelial Cells (renal) (test code = 14093-2) Casts (test code = 00262-2) None seen None seen Cast Type (test code = 59013-8) Crystals (test code = 5783-6) Crystal Type (test code = 5782-8) Mucus Threads (test code = 8247-9) Bacteria (test code = 5769-5) None seen None seen/Few Yeast (test code = 5822-2) Trichomonas (test code = 5813-1) Comment (test code = 30886-7) [facility] Description: Urate [Mass/volume] in Serum or [id number] 02:57:00 Test Item Value Reference Range Interpretation Comments Uric Acid (test 11.5 mg/dL 3.8-8.4 H code = 3084-1) Therapeutic t arget for gout patients: <6.0

P erformed by:
[facility] ([place])

[facility] Description: Comp. Metabolic Panel (14)2021-01-30 02:57:00 Test Item Value Reference Range Interpretation Comments Glucose (test code 256 mg/dL 65-99 H = 2345-7) BUN (test code = 57 mg/dL 6-24 H 3094-0) Creatinine (test 2.38 mg/dL 0.76-1.27 H code = 2160-0) eGFR If NonAfricn 31 >59 L Am (test code = mL/min/1.73 43025-8) eGFR If Africn Am 36 >59 L In accor dance with (test code = mL/min/1.73 recommendations from 10519-7) the NKF-ASN Tas k force, [facility] is in the process of updating its eG FR calculation to the 2020 CKD-EPI creatinine equa tion that estimates kidney function witho ut a race variable.
< br/>Per formed by:
[facility] ([place])

BUN/Creatinine 24 9-20 H Ratio (test code = 3097-3) Sodium (test code = 139 mmol/L 085-562 0761-2) Potassium (test 4.9 mmol/L 3.5-5.2 code = 2823-3) Chloride (test code 100 mmol/L 96-106 = 2075-0) Carbon Dioxide, 23 mmol/L 20-29 Total (test code = 2027-) Calcium (test code 9.0 mg/dL 8.7-10.2 = 04423-8) Protein, Total 6.5 g/dL 6.0-8.5 (test code = 2885-2) Albumin (test code 3.4 g/dL 4.0-5.0 L = 1751-7) Globulin, Total 3.1 g/dL 1.5-4.5 (test code = 92476-3) A/G Ratio (test 1.1 1.2-2.2 L code [...] Range Interpretation Comments Magnesium (test code = 74869-3) 1.8 mg/dL 1.6-2.3 [facility] Description: Microscopic [id number] 02:57:00 Test Item Value Reference Range Interpretation Comments WBC (test code = 5821-4) None seen 0-5 RBC (test code = 15438-5) None seen 0-2 Epithelial Cells (non renal) (test None seen 0-10 code = 5787-7) Epithelial Cells (renal) (test code = 52588-8) Casts (test code = 11154-2) None seen None seen Cast Type (test code = 30131-7) Crystals (test code = 5783-6) Crystal Type (test code = 5782-8) Mucus Threads (test code = 8247-9) Bacteria (test code = 5769-5) None seen None seen/Few Yeast (test code = 5822-2) Trichomonas (test code = 5813-1) Comment (test code = 99137-5) [facility] Description: Urate [Mass/volume] in Serum or [id number] 02:57:00 Test Item Value Reference Range Interpretation [...] >59 L Am (test code = mL/min/1.73 24364-9) eGFR If Africn Am 36 >59 L In accor dance with (test code = mL/min/1.73 recommendations from 13950-6) the NKF-ASN Tas k force, [facility] is in the process of updating its eG FR calculation to the 2020 CKD-EPI creatinine equa tion that estimates kidney function witho ut a race variable.
< br/>Per formed by:
[facility] ([place])

BUN/Creatinine 24 9-20 H Ratio (test code = 3097-3) Sodium (test code = 139 mmol/L 540-536 9248-2) Potassium (test 4.9 mmol/L 3.5-5.2 code = 2823-3) Chloride (test code 100 mmol/L 96-106 = 2075-0) Carbon Dioxide, 23 mmol/L 20-29 Total (test code = 2027-) Calcium (test code 9.0 mg/dL 8.7-10.2 = 01086-7) Protein, Total 6.5 g/dL 6.0-8.5 (test code = 2885-2) Albumin (test code 3.4 g/dL 4.0-5.0 L = 1751-7) Globulin, Total 3.1 g/dL 1.5-4.5 (test code = 97615-9) A/G Ratio (test 1.1 1.2-2.2 L code [...] Range Interpretation Comments Magnesium (test code = 91734-8) 1.8 mg/dL 1.6-2.3 [facility] Description: Microscopic Sszfewzqiyr1601-16-60 02:57:00 Test Item Value Reference Range Interpretation Comments WBC (test code = 5821-4) None seen 0-5 RBC (test code = 32768-8) None seen 0-2 Epithelial Cells (non renal) (test None seen 0-10 code = 5787-7) Epithelial Cells (renal) (test code = 63515-0) Casts (test code = 04010-4) None seen None seen Cast Type (test code = 14710-7) Crystals (test code = 5783-6) Crystal Type (test code = 5782-8) Mucus Threads (test code = 8247-9) Bacteria (test code = 5769-5) None seen None seen/Few Yeast (test code = 5822-2) Trichomonas (test code = 5813-1) Comment (test code = 77642-8) [facility] Description: Urate [Mass/volume] in Serum or Xnjdnu8634-27-16 02:57:00 Test Item Value Reference Range Interpretation Comments Uric Acid (test 11.5 mg/dL 3.8-8.4 H code = 3084-1) Therapeutic t arget for gout patients: <6.0

P erformed by:
[facility] ([place])

[facility] Description: Comp. Metabolic Panel (14)2021-01-30 02:57:00 Test Item Value Reference Range Interpretation Comments Glucose (test code 256 mg/dL 65-99 H = 2345-7) BUN (test code = 57 mg/dL 6-24 H 3094-0) Creatinine (test 2.38 mg/dL 0.76-1.27 H code = 2160-0) eGFR If NonAfricn 31 >59 L Am (test code = mL/min/1.73 37410-7) eGFR If Africn Am 36 >59 L In accor dance with (test code = mL/min/1.73 recommendations from 43687-7) the NKF-ASN Tas k force, [facility] is in the process of updating its eG FR calculation to the 2020 CKD-EPI creatinine equa tion that estimates kidney function witho ut a race variable.
< br/>Per formed by:
[facility] ([place])

BUN/Creatinine 24 9-20 H Ratio (test code = 3097-3) Sodium (test code = 139 mmol/L 890-689 9892-2) Potassium (test 4.9 mmol/L 3.5-5.2 code = 2823-3) Chloride (test code 100 mmol/L 96-106 = 2075-0) Carbon Dioxide, 23 mmol/L 20-29 Total (test code = 2027-) Calcium (test code 9.0 mg/dL 8.7-10.2 = 90553-1) Protein, Total 6.5 g/dL 6.0-8.5 (test code = 2885-2) Albumin (test code 3.4 g/dL 4.0-5.0 L = 1751-7) Globulin, Total 3.1 g/dL 1.5-4.5 (test code = 64411-1) A/G Ratio (test 1.1 1.2-2.2 L code [...] Range Interpretation Comments Magnesium (test code = 50574-5) 1.8 mg/dL 1.6-2.3 [facility] Description: Microscopic Dxrwotwyjbz2521-56-76 02:57:00 Test Item Value Reference Range Interpretation Comments WBC (test code = 5821-4) None seen 0-5 RBC (test code = 53313-8) None seen 0-2 Epithelial Cells (non renal) (test None seen 0-10 code = 5787-7) Epithelial Cells (renal) (test code = 92546-8) Casts (test code = 51131-4) None seen None seen Cast Type (test code = 17157-8) Crystals (test code = 5783-6) Crystal Type (test code = 5782-8) Mucus Threads (test code = 8247-9) Bacteria (test code = 5769-5) None seen None seen/Few Yeast (test code = 5822-2) Trichomonas (test code = 5813-1) Comment (test code = 50915-7) [facility] Description: Urate [Mass/volume] in Serum or Kfmhnh2610-92-56 02:57:00 Test Item Value Reference Range Interpretation Comments Uric Acid (test 11.5 mg/dL 3.8-8.4 H code = 3084-1) Therapeutic t arget for gout patients: <6.0

P erformed by:
[facility] ([place])

[facility] Description: Comp. Metabolic Panel (14)2021-01-30 02:57:00 Test Item Value Reference Range Interpretation Comments Glucose (test code 256 mg/dL 65-99 H = 2345-7) BUN (test code = 57 mg/dL 6-24 H 3094-0) Creatinine (test 2.38 mg/dL 0.76-1.27 H code = 2160-0) eGFR If NonAfricn 31 >59 L Am (test code = mL/min/1.73 96352-4) eGFR If Africn Am 36 >59 L In accor dance with (test code = mL/min/1.73 recommendations from 64151-3) the NKF-ASN Tas k force, [facility] is in the process of updating its eG FR calculation to the 2020 CKD-EPI creatinine equa tion that estimates kidney function witho ut a race variable.
< br/>Per formed by:
[facility] ([place])

BUN/Creatinine 24 9-20 H Ratio (test code = 3097-3) Sodium (test code = 139 mmol/L 559-763 4848-2) Potassium (test 4.9 mmol/L 3.5-5.2 code = 2823-3) Chloride (test code 100 mmol/L 96-106 = 2075-0) Carbon Dioxide, 23 mmol/L 20-29 Total (test code = 2027-) Calcium (test code 9.0 mg/dL 8.7-10.2 = 83607-4) Protein, Total 6.5 g/dL 6.0-8.5 (test code = 2885-2) Albumin (test code 3.4 g/dL 4.0-5.0 L = 1751-7) Globulin, Total 3.1 g/dL 1.5-4.5 (test code = 81991-5) A/G Ratio (test 1.1 1.2-2.2 L code [...] Range Interpretation Comments Magnesium (test code = 69070-8) 1.8 mg/dL 1.6-2.3 [facility] Description: Microscopic Dkoiqnaijdq6460-53-37 02:57:00 Test Item Value Reference Range Interpretation Comments WBC (test code = 5821-4) None seen 0-5 RBC (test code = 53476-1) None seen 0-2 Epithelial Cells (non renal) (test None seen 0-10 code = 5787-7) Epithelial Cells (renal) (test code = 63075-1) Casts (test code = 55671-9) None seen None seen Cast Type (test code = 51197-4) Crystals (test code = 5783-6) Crystal Type (test code = 5782-8) Mucus Threads (test code = 8247-9) Bacteria (test code = 5769-5) None seen None seen/Few Yeast (test code = 5822-2) Trichomonas (test code = 5813-1) Comment (test code = 69001-6) [facility] Description: Urate [Mass/volume] in Serum or Vrlewm2877-84-35 02:57:00 Test Item Value Reference Range Interpretation [...] >59 L Am (test code = mL/min/1.73 49189-2) eGFR If Africn Am 36 >59 L In accor dance with (test code = mL/min/1.73 recommendations from 41923-0) the NKF-ASN Tas k force, [facility] is in the process of updating its eG FR calculation to the 2020 CKD-EPI creatinine equa tion that estimates kidney function witho ut a race variable.
< br/>Per formed by:
[facility] ([place])

BUN/Creatinine 24 9-20 H Ratio (test code = 3097-3) Sodium (test code = 139 mmol/L 190-291 9213-2) Potassium (test 4.9 mmol/L 3.5-5.2 code = 2823-3) Chloride (test code 100 mmol/L 96-106 = 2075-0) Carbon Dioxide, 23 mmol/L 20-29 Total (test code = 2027-) Calcium (test code 9.0 mg/dL 8.7-10.2 = 41028-3) Protein, Total 6.5 g/dL 6.0-8.5 (test code = 2885-2) Albumin (test code 3.4 g/dL 4.0-5.0 L = 1751-7) Globulin, Total 3.1 g/dL 1.5-4.5 (test code = 22827-6) A/G Ratio (test 1.1 1.2-2.2 L code [...] Range Interpretation Comments Magnesium (test code = 15645-5) 1.8 mg/dL 1.6-2.3 [facility] Description: Microscopic Onsjpahzpmr5122-71-75 02:57:00 Test Item Value Reference Range Interpretation Comments WBC (test code = 5821-4) None seen 0-5 RBC (test code = 73814-3) None seen 0-2 Epithelial Cells (non renal) (test None seen 0-10 code = 5787-7) Epithelial Cells (renal) (test code = 55329-4) Casts (test code = 87919-9) None seen None seen Cast Type (test code = 04668-3) Crystals (test code = 5783-6) Crystal Type (test code = 5782-8) Mucus Threads (test code = 8247-9) Bacteria (test code = 5769-5) None seen None seen/Few Yeast (test code = 5822-2) Trichomonas (test code = 5813-1) Comment (test code = 33415-0) [facility] Description: Urate [Mass/volume] in Serum or Kesqkw8971-63-59 02:57:00 Test Item Value Reference Range Interpretation [...] >59 L Am (test code = mL/min/1.73 38917-1) eGFR If Africn Am 36 >59 L In accor dance with (test code = mL/min/1.73 recommendations from 38184-0) the NKF-ASN Tas k force, [facility] is in the process of updating its eG FR calculation to the 2020 CKD-EPI creatinine equa tion that estimates kidney function witho ut a race variable.
< br/>Per formed by:
[facility] ([place])

BUN/Creatinine 24 9-20 H Ratio (test code = 3097-3) Sodium (test code = 139 mmol/L 728-590 4426-2) Potassium (test 4.9 mmol/L 3.5-5.2 code = 2823-3) Chloride (test code 100 mmol/L 96-106 = 2075-0) Carbon Dioxide, 23 mmol/L 20-29 Total (test code = 2027-) Calcium (test code 9.0 mg/dL 8.7-10.2 = 63754-7) Protein, Total 6.5 g/dL 6.0-8.5 (test code = 2885-2) Albumin (test code 3.4 g/dL 4.0-5.0 L = 1751-7) Globulin, Total 3.1 g/dL 1.5-4.5 (test code = 33880-6) A/G Ratio (test 1.1 1.2-2.2 L code [...] Range Interpretation Comments Magnesium (test code = 36940-1) 1.8 mg/dL 1.6-2.3 [facility] Description: Microscopic Woovqrixgdb6081-47-69 02:57:00 Test Item Value Reference Range Interpretation Comments WBC (test code = 5821-4) None seen 0-5 RBC (test code = 97803-7) None seen 0-2 Epithelial Cells (non renal) (test None seen 0-10 code = 5787-7) Epithelial Cells (renal) (test code = 31170-5) Casts (test code = 09062-5) None seen None seen Cast Type (test code = 12401-2) Crystals (test code = 5783-6) Crystal Type (test code = 5782-8) Mucus Threads (test code = 8247-9) Bacteria (test code = 5769-5) None seen None seen/Few Yeast (test code = 5822-2) Trichomonas (test code = 5813-1) Comment (test code = 24871-4) [facility] Description: Urate [Mass/volume] in Serum or Ldtitf0488-27-04 02:57:00 Test Item Value Reference Range Interpretation Comments Uric Acid (test 11.5 mg/dL 3.8-8.4 H code = 3084-1) Therapeutic t arget for gout patients: <6.0

P erformed by:
[facility] ([place])

[facility] Description: Comp. Metabolic Panel (14)2021-01-30 02:57:00 Test Item Value Reference Range Interpretation Comments Glucose (test code 256 mg/dL 65-99 H = 2345-7) BUN (test code = 57 mg/dL 6-24 H 3094-0) Creatinine (test 2.38 mg/dL 0.76-1.27 H code = 2160-0) eGFR If NonAfricn 31 >59 L Am (test code = mL/min/1.73 47593-8) eGFR If Africn Am 36 >59 L In accor dance with (test code = mL/min/1.73 recommendations from 67925-1) the NKF-ASN Tas k force, [facility] the [facility] eG [facility] calculation to the 2020 CKD-EPI creatinine equa tion that estimates kidney function witho ut a race variable.
< br/>Per formed by:
[facility] ([place])

BUN/Creatinine 24 9-20 H Ratio (test code = 3097-3) Sodium (test code = 139 mmol/L 299-497 7998-2) Potassium (test 4.9 mmol/L 3.5-5.2 code = 2823-3) Chloride (test code 100 mmol/L 96-106 = 2075-0) Carbon Dioxide, 23 mmol/L 20-29 Total (test code = 2027-) Calcium (test code 9.0 mg/dL 8.7-10.2 = 58493-2) Protein, Total 6.5 g/dL 6.0-8.5 (test code = 2885-2) Albumin (test code 3.4 g/dL 4.0-5.0 L = 1751-7) Globulin, Total 3.1 g/dL 1.5-4.5 (test code = 19140-9) A/G Ratio (test 1.1 1.2-2.2 L code [...] Range Interpretation Comments Magnesium (test code = 46975-9) 1.8 mg/dL 1.6-2.3 [facility] Description: Microscopic Knptczfxgqh3946-02-49 02:57:00 Test Item Value Reference Range Interpretation Comments WBC (test code = 5821-4) None seen 0-5 RBC (test code = 51397-6) None seen 0-2 Epithelial Cells (non renal) (test None seen 0-10 code = 5787-7) Epithelial Cells (renal) (test code = 33638-4) Casts (test code = 79286-4) None seen None seen Cast Type (test code = 04508-9) Crystals (test code = 5783-6) Crystal Type (test code = 5782-8) Mucus Threads (test code = 8247-9) Bacteria (test code = 5769-5) None seen None seen/Few Yeast (test code = 5822-2) Trichomonas (test code = 5813-1) Comment (test code = 87780-3) [facility] Description: Urate [Mass/volume] in Serum or Pmcvnf3062-44-03 02:57:00 Test Item Value Reference Range Interpretation Comments Uric Acid (test 11.5 mg/dL 3.8-8.4 H code = 3084-1) Therapeutic t arget for gout patients: <6.0

P erformed by:
[facility] ([place])

[facility] Description: Comp. Metabolic Panel (14)2021-01-30 02:57:00 Test Item Value Reference Range Interpretation Comments Glucose (test code 256 mg/dL 65-99 H = 2345-7) BUN (test code = 57 mg/dL 6-24 H 3094-0) Creatinine (test 2.38 mg/dL 0.76-1.27 H code = 2160-0) eGFR If NonAfricn 31 >59 L Am (test code = mL/min/1.73 36515-3) eGFR If Africn Am 36 >59 L In accor dance with (test code = mL/min/1.73 recommendations from 48365-8) the NKF-ASN Tas k force, [facility] is in the process of updating its eG FR calculation to the 2020 CKD-EPI creatinine equa tion that estimates kidney function witho ut a race variable.
< br/>Per formed by:
[facility] ([place])

BUN/Creatinine 24 9-20 H Ratio (test code = 3097-3) Sodium (test code = 139 mmol/L 463-636 9505-2) Potassium (test 4.9 mmol/L 3.5-5.2 code = 2823-3) Chloride (test code 100 mmol/L 96-106 = 2075-0) Carbon Dioxide, 23 mmol/L 20-29 Total (test code = 2027-) Calcium (test code 9.0 mg/dL 8.7-10.2 = 77714-6) Protein, Total 6.5 g/dL 6.0-8.5 (test code = 2885-2) Albumin (test code 3.4 g/dL 4.0-5.0 L = 1751-7) Globulin, Total 3.1 g/dL 1.5-4.5 (test code = 84073-8) A/G Ratio (test 1.1 1.2-2.2 L code [...] Range Interpretation Comments Magnesium (test code = 79079-0) 1.8 mg/dL 1.6-2.3 [facility] Description: Microscopic Hdatxohuybf8658-24-90 02:57:00 Test Item Value Reference Range Interpretation Comments WBC (test code = 5821-4) None seen 0-5 RBC (test code = 40841-5) None seen 0-2 Epithelial Cells (non renal) (test None seen 0-10 code = 5787-7) Epithelial Cells (renal) (test code = 84395-3) Casts (test code = 14262-9) None seen None seen Cast Type (test code = 60023-3) Crystals (test code = 5783-6) Crystal Type (test code = 5782-8) Mucus Threads (test code = 8247-9) Bacteria (test code = 5769-5) None seen None seen/Few Yeast (test code = 5822-2) Trichomonas (test code = 5813-1) Comment (test code = 87399-0) [facility] Description: Urate [Mass/volume] in Serum or Mrhvxz7825-86-71 02:57:00 Test Item Value Reference Range Interpretation [...] >59 L Am (test code = mL/min/1.73 19750-4) eGFR If Africn Am 36 >59 L In accor dance with (test code = mL/min/1.73 recommendations from 44436-3) the NKF-ASN Tas k force, [facility] is in the process of updating its eG FR calculation to the 2020 CKD-EPI creatinine equa tion that estimates kidney function witho ut a race variable.
< br/>Per formed by:
[facility] ([place])

BUN/Creatinine 24 9-20 H Ratio (test code = 3097-3) Sodium (test code = 139 mmol/L 203-209 0100-2) Potassium (test 4.9 mmol/L 3.5-5.2 code = 2823-3) Chloride (test code 100 mmol/L 96-106 = 2075-0) Carbon Dioxide, 23 mmol/L 20-29 Total (test code = 2027-) Calcium (test code 9.0 mg/dL 8.7-10.2 = 15086-9) Protein, Total 6.5 g/dL 6.0-8.5 (test code = 2885-2) Albumin (test code 3.4 g/dL 4.0-5.0 L = 1751-7) Globulin, Total 3.1 g/dL 1.5-4.5 (test code = 89308-9) A/G Ratio (test 1.1 1.2-2.2 L code [...] Range Interpretation Comments Magnesium (test code = 45623-1) 1.8 mg/dL 1.6-2.3 [facility] Description: Microscopic Ofhraatiyzi6777-44-98 02:57:00 Test Item Value Reference Range Interpretation Comments WBC (test code = 5821-4) None seen 0-5 RBC (test code = 67836-0) None seen 0-2 Epithelial Cells (non renal) (test None seen 0-10 code = 5787-7) Epithelial Cells (renal) (test code = 51168-2) Casts (test code = 82284-0) None seen None seen Cast Type (test code = 15574-1) Crystals (test code = 5783-6) Crystal Type (test code = 5782-8) Mucus Threads (test code = 8247-9) Bacteria (test code = 5769-5) None seen None seen/Few Yeast (test code = 5822-2) Trichomonas (test code = 5813-1) Comment (test code = 37944-8) [facility] Description: Urate [Mass/volume] in Serum or Qxjhzm4511-18-27 02:57:00 Test Item Value Reference Range Interpretation Comments Uric Acid (test 11.5 mg/dL 3.8-8.4 H code = 3084-1) Therapeutic t arget for gout patients: <6.0

P erformed by:
[facility] ([place])

[facility] Description: Comp. Metabolic Panel (14)2021-01-30 02:57:00 Test Item Value Reference Range Interpretation Comments Glucose (test code 256 mg/dL 65-99 H = 2345-7) BUN (test code = 57 mg/dL 6-24 H 3094-0) Creatinine (test 2.38 mg/dL 0.76-1.27 H code = 2160-0) eGFR If NonAfricn 31 >59 L Am (test code = mL/min/1.73 66911-6) eGFR If Africn Am 36 >59 L In accor dance with (test code = mL/min/1.73 recommendations from 95419-7) the NKF-ASN Tas k force, [facility] is in the process of updating its eG FR calculation to the 2020 CKD-EPI creatinine equa tion that estimates kidney function witho ut a race variable.
< br/>Per formed by:
[facility] ([place])

BUN/Creatinine 24 9-20 H Ratio (test code = 3097-3) Sodium (test code = 139 mmol/L 903-969 6094-2) Potassium (test 4.9 mmol/L 3.5-5.2 code = 2823-3) Chloride (test code 100 mmol/L 96-106 = 2075-0) Carbon Dioxide, 23 mmol/L 20-29 Total (test code = 2027-) Calcium (test code 9.0 mg/dL 8.7-10.2 = 11378-1) Protein, Total 6.5 g/dL 6.0-8.5 (test code = 2885-2) Albumin (test code 3.4 g/dL 4.0-5.0 L = 1751-7) Globulin, Total 3.1 g/dL 1.5-4.5 (test code = 87718-6) A/G Ratio (test 1.1 1.2-2.2 L code [...] Range Interpretation Comments Magnesium (test code = 11656-2) 1.8 mg/dL 1.6-2.3 [facility] Description: Microscopic Zkxkowawmyx4869-21-68 02:57:00 Test Item Value Reference Range Interpretation Comments WBC (test code = 5821-4) None seen 0-5 RBC (test code = 72931-6) None seen 0-2 Epithelial Cells (non renal) (test None seen 0-10 code = 5787-7) Epithelial Cells (renal) (test code = 84360-7) Casts (test code = 25849-9) None seen None seen Cast Type (test code = 03850-2) Crystals (test code = 5783-6) Crystal Type (test code = 5782-8) Mucus Threads (test code = 8247-9) Bacteria (test code = 5769-5) None seen None seen/Few Yeast (test code = 5822-2) Trichomonas (test code = 5813-1) Comment (test code = 30816-8) [facility] Description: Urate [Mass/volume] in Serum or Smpisu0469-13-47 02:57:00 Test Item Value Reference Range Interpretation Comments Uric Acid (test 11.5 mg/dL 3.8-8.4 H code = 3084-1) Therapeutic t arget for gout patients: <6.0

P erformed by:
[facility] ([place])

[facility] Description: Comp. Metabolic Panel (14)2021-01-30 02:57:00 Test Item Value Reference Range Interpretation Comments Glucose (test code 256 mg/dL 65-99 H = 2345-7) BUN (test code = 57 mg/dL 6-24 H 3094-0) Creatinine (test 2.38 mg/dL 0.76-1.27 H code = 2160-0) eGFR If NonAfricn 31 >59 L Am (test code = mL/min/1.73 04327-2) eGFR If Africn Am 36 >59 L In accor dance with (test code = mL/min/1.73 recommendations from 59073-4) the NKF-ASN Tas k force, [facility] is in the process of updating its eG FR calculation to the 2020 CKD-EPI creatinine equa tion that estimates kidney function witho ut a race variable.
< br/>Per formed by:
[facility] ([place])

BUN/Creatinine 24 9-20 H Ratio (test code = 3097-3) Sodium (test code = 139 mmol/L 743-228 4924-2) Potassium (test 4.9 mmol/L 3.5-5.2 code = 2823-3) Chloride (test code 100 mmol/L 96-106 = 2075-0) Carbon Dioxide, 23 mmol/L 20-29 Total (test code = 2027-) Calcium (test code 9.0 mg/dL 8.7-10.2 = 30249-1) Protein, Total 6.5 g/dL 6.0-8.5 (test code = 2885-2) Albumin (test code 3.4 g/dL 4.0-5.0 L = 1751-7) Globulin, Total 3.1 g/dL 1.5-4.5 (test code = 57792-9) A/G Ratio (test 1.1 1.2-2.2 L code [...] Range Interpretation Comments Magnesium (test code = 50706-7) 1.8 mg/dL 1.6-2.3 [facility] Description: Microscopic Dxzlhbnqyan6743-23-20 02:57:00 Test Item Value Reference Range Interpretation Comments WBC (test code = 5821-4) None seen 0-5 RBC (test code = 67961-8) None seen 0-2 Epithelial Cells (non renal) (test None seen 0-10 code = 5787-7) Epithelial Cells (renal) (test code = 72459-4) Casts (test code = 25778-1) None seen None seen Cast Type (test code = 28001-6) Crystals (test code = 5783-6) Crystal Type (test code = 5782-8) Mucus Threads (test code = 8247-9) Bacteria (test code = 5769-5) None seen None seen/Few Yeast (test code = 5822-2) Trichomonas (test code = 5813-1) Comment (test code = 49758-5) [facility] Description: Urate [Mass/volume] in Serum or Ellgmj3774-62-10 02:57:00 Test Item Value Reference Range Interpretation Comments Uric Acid (test 11.5 mg/dL 3.8-8.4 H code = 3084-1) Therapeutic t arget for gout patients: <6.0

P erformed by:
[facility] ([place])

[facility] Description: Comp. Metabolic Panel (14)2021-01-30 02:57:00 Test Item Value Reference Range Interpretation Comments Glucose (test code 256 mg/dL 65-99 H = 2345-7) BUN (test code = 57 mg/dL 6-24 H 3094-0) Creatinine (test 2.38 mg/dL 0.76-1.27 H code = 2160-0) eGFR If NonAfricn 31 >59 L Am (test code = mL/min/1.73 92027-3) eGFR If Africn Am 36 >59 L In accor dance with (test code = mL/min/1.73 recommendations from 58041-4) the NKF-ASN Tas k force, [facility] is in the process of updating its eG FR calculation to the 2020 CKD-EPI creatinine equa tion that estimates kidney function witho ut a race variable.
< br/>Per formed by:
[facility] ([place])

BUN/Creatinine 24 9-20 H Ratio (test code = 3097-3) Sodium (test code = 139 mmol/L 773-477 6356-2) Potassium (test 4.9 mmol/L 3.5-5.2 code = 2823-3) Chloride (test code 100 mmol/L 96-106 = 2075-0) Carbon Dioxide, 23 mmol/L 20-29 Total (test code = 2027-) Calcium (test code 9.0 mg/dL 8.7-10.2 = 06945-3) Protein, Total 6.5 g/dL 6.0-8.5 (test code = 2885-2) Albumin (test code 3.4 g/dL 4.0-5.0 L = 1751-7) Globulin, Total 3.1 g/dL 1.5-4.5 (test code = 23936-2) A/G Ratio (test 1.1 1.2-2.2 L code [...] Range Interpretation Comments Magnesium (test code = 23172-1) 1.8 mg/dL 1.6-2.3 [facility] Description: Microscopic Wsxzkuamrav3483-58-50 02:57:00 Test Item Value Reference Range Interpretation Comments WBC (test code = 5821-4) None seen 0-5 RBC (test code = 87747-6) None seen 0-2 Epithelial Cells (non renal) (test None seen 0-10 code = 5787-7) Epithelial Cells (renal) (test code = 05436-7) Casts (test code = 61239-9) None seen None seen Cast Type (test code = 87903-8) Crystals (test code = 5783-6) Crystal Type (test code = 5782-8) Mucus Threads (test code = 8247-9) Bacteria (test code = 5769-5) None seen None seen/Few Yeast (test code = 5822-2) Trichomonas (test code = 5813-1) Comment (test code = 37830-3) [facility] Description: Urate [Mass/volume] in Serum or Kotcti9981-64-41 02:57:00 Test Item Value Reference Range Interpretation Comments Uric Acid (test 11.5 mg/dL 3.8-8.4 H code = 3084-1) Therapeutic t arget for gout patients: <6.0

P erformed by:
[facility] ([place])

[facility] Description: Comp. Metabolic Panel (14)2021-01-30 02:57:00 Test Item Value Reference Range Interpretation Comments Glucose (test code 256 mg/dL 65-99 H = 2345-7) BUN (test code = 57 mg/dL 6-24 H 3094-0) Creatinine (test 2.38 mg/dL 0.76-1.27 H code = 2160-0) eGFR If NonAfricn 31 >59 L Am (test code = mL/min/1.73 71575-8) eGFR If Africn Am 36 >59 L In accor dance with (test code = mL/min/1.73 recommendations from 12299-5) the NKF-ASN [place] k force, [facility] is in the process of updating its eG FR calculation to the 2020 CKD-EPI creatinine equa tion that estimates kidney function witho ut a race variable.
< br/>Per formed by:
[facility] (HD)

BUN/Creatinine 24 9-20 H Ratio (test code = 3097-3) Sodium (test code = 139 mmol/L 412-636 3264-2) Potassium (test 4.9 mmol/L 3.5-5.2 code = 2823-3) Chloride (test code 100 mmol/L 96-106 = 2075-0) Carbon Dioxide, 23 mmol/L 20-29 Total (test code = 2027-) Calcium (test code 9.0 mg/dL 8.7-10.2 = 37950-1) Protein, Total 6.5 g/dL 6.0-8.5 (test code = 2885-2) Albumin (test code 3.4 g/dL 4.0-5.0 L = 1751-7) Globulin, Total 3.1 g/dL 1.5-4.5 (test code = 11148-1) A/G Ratio (test 1.1 1.2-2.2 L code [...] Range Interpretation Comments Magnesium (test code = 40841-1) 1.8 mg/dL 1.6-2.3 [facility] Description: Microscopic Tfpbmpsrvlh0877-65-15 02:57:00 Test Item Value Reference Range Interpretation Comments WBC (test code = 5821-4) None seen 0-5 RBC (test code = 09907-7) None seen 0-2 Epithelial Cells (non renal) (test None seen 0-10 code = 5787-7) Epithelial Cells (renal) (test code = 68692-6) Casts (test code = 06178-0) None seen None seen Cast Type (test code = 09052-7) Crystals (test code = 5783-6) Crystal Type (test code = 5782-8) Mucus Threads (test code = 8247-9) Bacteria (test code = 5769-5) None seen None seen/Few Yeast (test code = 5822-2) Trichomonas (test code = 5813-1) Comment (test code = 01124-5) [facility]: Urate [Mass/volume] in Serum or Potmpl6807-80-84 02:57:00 Test Item Value Reference Range Interpretation Comments Uric Acid (test 11.5 mg/dL 3.8-8.4 H code = 3084-1) Therapeutic t arget for gout patients: <6.0

P erformed by:
[employer] [place] ()

[facility] Description: Urinalysis, [id number] 02:24:00 Test Item Value Reference Range Interpretation Comments Specific Garrett (test 1.017 1.005-1.030 code = 2965-2) pH (test code = 5.5 5.0-7.5 5803-2) Urine-Color (test code Yellow Yellow = 5778-6) Appearance (test code Clear Clear = 5767-9) WBC Esterase (test Negative Negative code = 5799-2) Protein (test code = 4+ Negative/Trace A 35137-8) Glucose (test code = 1+ Negative A 2349-9) Ketones (test code = Negative Negative 2514-8) Occult Blood (test Trace Negative A code = 5794-3) Bilirubin (test code = Negative Negative 5770-3) Urobilinogen,Semi-Qn 0.2 mg/dL 0.2-1.0 (test code = 42860-3) Nitrite, Urine (test Negative Negative code = 5802-4) Microscopic See below: Microscopic was Examination (test code indic ronaldo isbell was = 39686-6) performed.

P erformed by:
[employer] [place] ()

[facility]: Urinalysis, [id number] 02:24:00 Test Item Value Reference Range Interpretation Comments Specific Garrett (test 1.017 1.005-1.030 code = 2965-2) pH (test code = 5.5 5.0-7.5 5803-2) Urine-Color (test code Yellow Yellow = 5778-6) Appearance (test code Clear Clear = 5767-9) WBC Esterase (test Negative Negative code = 5799-2) Protein (test code = 4+ Negative/Trace A 48032-8) Glucose (test code = 1+ Negative A 2349-9) Ketones (test code = Negative Negative 2514-8) Occult Blood (test Trace Negative A code = 5794-3) Bilirubin (test code = Negative Negative 5770-3) Urobilinogen,Semi-Qn 0.2 mg/dL 0.2-1.0 (test code = 65979-0) Nitrite, Urine (test Negative Negative code = 5802-4) Microscopic See below: Microscopic was Examination (test code indic ated and was = 94716-4) performed.

P erformed by:
[employer] Kaur ()

[facility] Description: Urinalysis, [id number] 02:24:00 Test Item Value Reference Range Interpretation Comments Specific Garrett (test 1.017 1.005-1.030 code = 2965-2) pH (test code = 5.5 5.0-7.5 5803-2) Urine-Color (test code Yellow Yellow = 5778-6) Appearance (test code Clear Clear = 5767-9) WBC Esterase (test Negative Negative code = 5799-2) Protein (test code = 4+ Negative/Trace A 83700-3) Glucose (test code = 1+ Negative A 2349-9) Ketones (test code = Negative Negative 2514-8) Occult Blood (test Trace Negative A code = 5794-3) Bilirubin (test code = Negative Negative 5770-3) Urobilinogen,Semi-Qn 0.2 mg/dL 0.2-1.0 (test code = 88352-9) Nitrite, Urine (test Negative Negative code = 5802-4) Microscopic See below: Microscopic was Examination (test code indic ated and was = 75246-2) performed.

P erformed by:
[employer] K[facility] ()

[facility] Description: Urinalysis, [id number] 02:24:00 Test Item Value Reference Range Interpretation Comments Specific Garrett (test 1.017 1.005-1.030 code = 2965-2) pH (test code = 5.5 5.0-7.5 5803-2) Urine-Color (test code Yellow Yellow = 5778-6) Appearance (test code Clear Clear = 5767-9) WBC Esterase (test Negative Negative code = 5799-2) Protein (test code = 4+ Negative/Trace A 48961-5) Glucose (test code = 1+ Negative A 2349-9) Ketones (test code = Negative Negative 2514-8) Occult Blood (test Trace Negative A code = 5794-3) Bilirubin (test code = Negative Negative 5770-3) Urobilinogen,Semi-Qn 0.2 mg/dL 0.2-1.0 (test code = 62514-2) Nitrite, Urine (test Negative Negative code = 5802-4) Microscopic See below: Microscopic was Examination (test code indic ated and was = 70167-9) performed.

P erformed by:
Vino Volo ()

[facility] Description: Urinalysis, [id number] 02:24:00 Test Item Value Reference Range Interpretation Comments Specific Garrett (test 1.017 1.005-1.030 code = 2965-2) pH (test code = 5.5 5.0-7.5 5803-2) Urine-Color (test code Yellow Yellow = 5778-6) Appearance (test code Clear Clear = 5767-9) WBC Esterase (test Negative Negative code = 5799-2) Protein (test code = 4+ Negative/Trace A 44815-6) Glucose (test code = 1+ Negative A 2349-9) Ketones (test code = Negative Negative 2514-8) Occult Blood (test Trace Negative A code = 5794-3) Bilirubin (test code = Negative Negative 5770-3) Urobilinogen,Semi-Qn 0.2 mg/dL 0.2-1.0 (test code = 87902-9) Nitrite, Urine (test Negative Negative code = 5802-4) Microscopic See below: Microscopic was Examination (test code indic ated and was = 20916-7) performed.

P erformed by:
Vino Volo (HD)

[facility] Description: Urinalysis, [id number] 02:24:00 Test Item Value Reference Range Interpretation Comments Specific Garrett (test 1.017 1.005-1.030 code = 2965-2) pH (test code = 5.5 5.0-7.5 5803-2) Urine-Color (test code Yellow Yellow = 5778-6) Appearance (test code Clear Clear = 5767-9) WBC Esterase (test Negative Negative code = 5799-2) Protein (test code = 4+ Negative/Trace A 12433-2) Glucose (test code = 1+ Negative A 2349-9) Ketones (test code = Negative Negative 2514-8) Occult Blood (test Trace Negative A code = 5794-3) Bilirubin (test code = Negative Negative 5770-3) Urobilinogen,Semi-Qn 0.2 mg/dL 0.2-1.0 (test code = 68496-3) Nitrite, Urine (test Negative Negative code = 5802-4) Microscopic See below: Microscopic was Examination (test code indic ated and was = 37586-6) performed.

P erformed by:
[facility] [place] ()

[facility] Description: Urinalysis, [id number] 02:24:00 Test Item Value Reference Range Interpretation Comments Specific Garrett (test 1.017 1.005-1.030 code = 2965-2) pH (test code = 5.5 5.0-7.5 5803-2) Urine-Color (test code Yellow Yellow = 5778-6) Appearance (test code Clear Clear = 5767-9) WBC Esterase (test Negative Negative code = 5799-2) Protein (test code = 4+ Negative/Trace A 69567-1) Glucose (test code = 1+ Negative A 2349-9) Ketones (test code = Negative Negative 2514-8) Occult Blood (test Trace Negative A code = 5794-3) Bilirubin (test code = Negative Negative 5770-3) Urobilinogen,Semi-Qn 0.2 mg/dL 0.2-1.0 (test code = 46428-0) Nitrite, Urine (test Negative Negative code = 5802-4) Microscopic See below: Microscopic was Examination (test code indic ated and was = 05336-5) performed.

P erformed by:
[facility] [place] ()

[facility] Description: Urinalysis, [id number] 02:24:00 Test Item Value Reference Range Interpretation Comments Specific Garrett (test 1.017 1.005-1.030 code = 2965-2) pH (test code = 5.5 5.0-7.5 5803-2) Urine-Color (test code Yellow Yellow = 5778-6) Appearance (test code Clear Clear = 5767-9) WBC Esterase (test Negative Negative code = 5799-2) Protein (test code = 4+ Negative/Trace A 38165-1) Glucose (test code = 1+ Negative A 2349-9) Ketones (test code = Negative Negative 2514-8) Occult Blood (test Trace Negative A code = 5794-3) Bilirubin (test code = Negative Negative 5770-3) Urobilinogen,Semi-Qn 0.2 mg/dL 0.2-1.0 (test code = 10957-5) Nitrite, Urine (test Negative Negative code = 5802-4) Microscopic See below: Microscopic was Examination (test code indic ated and was = 41124-6) performed.

P erformed by:
[facility] [place] ()

[facility] Description: Urinalysis, [id number] 02:24:00 Test Item Value Reference Range Interpretation Comments Specific Garrett (test 1.017 1.005-1.030 code = 2965-2) pH (test code = 5.5 5.0-7.5 5803-2) Urine-Color (test code Yellow Yellow = 5778-6) Appearance (test code Clear Clear = 5767-9) WBC Esterase (test Negative Negative code = 5799-2) Protein (test code = 4+ Negative/Trace A 57225-4) Glucose (test code = 1+ Negative A 2349-9) Ketones (test code = Negative Negative 2514-8) Occult Blood (test Trace Negative A code = 5794-3) Bilirubin (test code = Negative Negative 5770-3) Urobilinogen,Semi-Qn 0.2 mg/dL 0.2-1.0 (test code = 60463-3) Nitrite, Urine (test Negative Negative code = 5802-4) Microscopic See below: Microscopic was Examination (test code indic ated and was = 53365-1) performed.

P erformed by:
[employer] [place] ()

[facility]: Urinalysis, [id number] 02:24:00 Test Item Value Reference Range Interpretation Comments Specific Garrett (test 1.017 1.005-1.030 code = 2965-2) pH (test code = 5.5 5.0-7.5 5803-2) Urine-Color (test code Yellow Yellow = 5778-6) Appearance (test code Clear Clear = 5767-9) WBC Esterase (test Negative Negative code = 5799-2) Protein (test code = 4+ Negative/Trace A 79281-1) Glucose (test code = 1+ Negative A 2349-9) Ketones (test code = Negative Negative 2514-8) Occult Blood (test Trace Negative A code = 5794-3) Bilirubin (test code = Negative Negative 5770-3) Urobilinogen,Semi-Qn 0.2 mg/dL 0.2-1.0 (test code = 58626-8) Nitrite, Urine (test Negative Negative code = 5802-4) Microscopic See below: Microscopic was Examination (test code indic ated and was = 44990-2) performed.

P erformed by:
[employer] [place] ()

[facility] Description: Urinalysis, [id number] 02:24:00 Test Item Value Reference Range Interpretation Comments Specific Garrett (test 1.017 1.005-1.030 code = 2965-2) pH (test code = 5.5 5.0-7.5 5803-2) Urine-Color (test code Yellow Yellow = 5778-6) Appearance (test code Clear Clear = 5767-9) WBC Esterase (test Negative Negative code = 5799-2) Protein (test code = 4+ Negative/Trace A 82171-3) Glucose (test code = 1+ Negative A 2349-9) Ketones (test code = Negative Negative 2514-8) Occult Blood (test Trace Negative A code = 5794-3) Bilirubin (test code = Negative Negative 5770-3) Urobilinogen,Semi-Qn 0.2 mg/dL 0.2-1.0 (test code = 29276-3) Nitrite, Urine (test Negative Negative code = 5802-4) Microscopic See below: Microscopic was Examination (test code indic ated and was = 37607-1) performed.

P erformed by:
[employer] [facility] ()

[facility] Description: Urinalysis, [id number] 02:24:00 Test Item Value Reference Range Interpretation Comments Specific Garrett (test 1.017 1.005-1.030 code = 2965-2) pH (test code = 5.5 5.0-7.5 5803-2) Urine-Color (test code Yellow Yellow = 5778-6) Appearance (test code Clear Clear = 5767-9) WBC Esterase (test Negative Negative code = 5799-2) Protein (test code = 4+ Negative/Trace A 26811-7) Glucose (test code = 1+ Negative A 2349-9) Ketones (test code = Negative Negative 2514-8) Occult Blood (test Trace Negative A code = 5794-3) Bilirubin (test code = Negative Negative 5770-3) Urobilinogen,Semi-Qn 0.2 mg/dL 0.2-1.0 (test code = 89422-3) Nitrite, Urine (test Negative Negative code = 5802-4) Microscopic See below: Microscopic was Examination (test code indic ated and was = 10026-5) performed.

P erformed by:
[employer] [facility] ()

[facility] Description: Urinalysis, [id number] 02:24:00 Test Item Value Reference Range Interpretation Comments Specific Garrett (test 1.017 1.005-1.030 code = 2965-2) pH (test code = 5.5 5.0-7.5 5803-2) Urine-Color (test code Yellow Yellow = 5778-6) Appearance (test code Clear Clear = 5767-9) WBC Esterase (test Negative Negative code = 5799-2) Protein (test code = 4+ Negative/Trace A 82730-2) Glucose (test code = 1+ Negative A 2349-9) Ketones (test code = Negative Negative 2514-8) Occult Blood (test Trace Negative A code = 5794-3) Bilirubin (test code = Negative Negative 5770-3) Urobilinogen,Semi-Qn 0.2 mg/dL 0.2-1.0 (test code = 13889-1) Nitrite, Urine (test Negative Negative code = 5802-4) Microscopic See below: Microscopic was Examination (test code indic ated and was = 43247-8) performed.

P erformed by:
[employer] [facility] ()

[facility] Description: Urinalysis, [id number] 02:24:00 Test Item Value Reference Range Interpretation Comments Specific Garrett (test 1.017 1.005-1.030 code = 2965-2) pH (test code = 5.5 5.0-7.5 5803-2) Urine-Color (test code Yellow Yellow = 5778-6) Appearance (test code Clear Clear = 5767-9) WBC Esterase (test Negative Negative code = 5799-2) Protein (test code = 4+ Negative/Trace A 62559-5) Glucose (test code = 1+ Negative A 2349-9) Ketones (test code = Negative Negative 2514-8) Occult Blood (test Trace Negative A code = 5794-3) Bilirubin (test code = Negative Negative 5770-3) Urobilinogen,Semi-Qn 0.2 mg/dL 0.2-1.0 (test code = 10437-7) Nitrite, Urine (test Negative Negative code = 5802-4) Microscopic See below: Microscopic was Examination (test code indic ated and was = 12343-1) performed.

P erformed by:
Vino Volo ([place])

[facility] Description: Urinalysis, [id number] 02:24:00 Microscopic [facility] Description: Urinalysis, Complete 2021-01-30 02:24:00Microscopic [facility] Description: Urinalysis, [id number] 02:24:00Microscopic [facility] Description: Urinalysis, [id number] 02:24:00Microscopic Examination [facility] Description: Urinalysis, [id number] 02:24:00 Microscopic [facility] Description: Urinalysis, Complete 2021-01-30 02:24:00Microscopic [facility] Description: Urinalysis, [id number] 02:24:00Microscopic [facility] Description: Urinalysis, [id number] 02:24:00Microscopic Examination [facility] Description: Urinalysis, [id number] 02:24:00 Microscopic [facility] Description: Urinalysis, Complete 2021-01-30 02:24:00[facility]scopic [facility] Description: Urinalysis, [id number] 02:24:00Microscopic [facility] Description: Urinalysis, [id number] 02:24:00Microscopic Examination [facility] Description: Urinalysis, [id number] 02:24:00 Microscopic [facility] Description: Urinalysis, Complete 2021-01-30 02:24:00Microscopic [facility] Description: Natriuretic peptide B [Mass/volume] in Serum or [id number] 13:54:00 Test Item Value Reference Range Interpretation Comments B-Type Natriuretic Peptide (test 427.5 pg/mL 0.0-100.0 H code = 40037-1) [facility] Description: Natriuretic peptide B [Mass/volume] in Serum or [id number] 13:54:00 Test Item Value Reference Range Interpretation Comments B-Type Natriuretic Peptide (test 427.5 pg/mL 0.0-100.0 H code = 52943-1) [facility] Description: Natriuretic peptide B [Mass/volume] in Serum or [id number] 13:54:00 Test Item Value Reference Range Interpretation Comments B-Type Natriuretic Peptide (test 427.5 pg/mL 0.0-100.0 H code = 18918-5) [facility] Description: Natriuretic peptide B [Mass/volume] in Serum or [id number] 13:54:00 Test Item Value Reference Range Interpretation Comments B-Type Natriuretic Peptide (test 427.5 pg/mL 0.0-100.0 H code = 05847-5) [facility] Description: Natriuretic peptide B [Mass/volume] in Serum or [id number] 13:54:00 Test Item Value Reference Range Interpretation Comments B-Type Natriuretic Peptide (test 427.5 pg/mL 0.0-100.0 H code = 72207-2) [facility] Description: Natriuretic peptide B [Mass/volume] in Serum or [id number] 13:54:00 Test Item Value Reference Range Interpretation Comments B-Type Natriuretic Peptide (test 427.5 pg/mL 0.0-100.0 H code = 05597-3) [facility] Description: Natriuretic peptide B [Mass/volume] in Serum or [id number] 13:54:00 Test Item Value Reference Range Interpretation Comments B-Type Natriuretic Peptide (test 427.5 pg/mL 0.0-100.0 H code = 23142-0) [facility] Description: Natriuretic peptide B [Mass/volume] in Serum or [id number] 13:54:00 Test Item Value Reference Range Interpretation Comments B-Type Natriuretic Peptide (test 427.5 pg/mL 0.0-100.0 H code = 36379-4) [facility] Description: Natriuretic peptide B [Mass/volume] in Serum or [id number] 13:54:00 Test Item Value Reference Range Interpretation Comments B-Type Natriuretic Peptide (test 427.5 pg/mL 0.0-100.0 H code = 81594-8) [facility] Description: Natriuretic peptide B [Mass/volume] in Serum or [id number] 13:54:00 Test Item Value Reference Range Interpretation Comments B-Type Natriuretic Peptide (test 427.5 pg/mL 0.0-100.0 H code = 12161-2) [facility] Description: Natriuretic peptide B [Mass/volume] in Serum or [id number] 13:54:00 Test Item Value Reference Range Interpretation Comments B-Type Natriuretic Peptide (test 427.5 pg/mL 0.0-100.0 H code = 60531-3) [facility] Description: Natriuretic peptide B [Mass/volume] in Serum or [id number] 13:54:00 Test Item Value Reference Range Interpretation Comments B-Type Natriuretic Peptide (test 427.5 pg/mL 0.0-100.0 H code = 94428-8) [facility] Description: Natriuretic peptide B [Mass/volume] in Serum or [id number] 13:54:00 Test Item Value Reference Range Interpretation Comments B-Type Natriuretic Peptide (test 427.5 pg/mL 0.0-100.0 H code = 04388-9) [facility] Description: Natriuretic peptide B [Mass/volume] in Serum or [id number] 13:54:00 Test Item Value Reference Range Interpretation Comments B-Type Natriuretic Peptide (test 427.5 pg/mL 0.0-100.0 H code = 83017-1) [facility] Description: Natriuretic peptide B [Mass/volume] in Serum or [id number] 13:54:00 Test Item Value Reference Range Interpretation Comments B-Type Natriuretic Peptide (test 427.5 pg/mL 0.0-100.0 H code = 81852-8) [facility] Description: Natriuretic peptide B [Mass/volume] in Serum or [id number] 13:54:00 Test Item Value Reference Range Interpretation Comments B-Type Natriuretic Peptide (test 427.5 pg/mL 0.0-100.0 H code = 85254-8) [facility] Description: Natriuretic peptide B [Mass/volume] in Serum or [id number] 13:54:00 Test Item Value Reference Range Interpretation Comments B-Type Natriuretic Peptide (test 427.5 pg/mL 0.0-100.0 H code = 94526-7) [facility] Description: Natriuretic peptide B [Mass/volume] in Serum or [id number] 13:54:00 Test Item Value Reference Range Interpretation Comments B-Type Natriuretic Peptide (test 427.5 pg/mL 0.0-100.0 H code = 30139-6) [facility]: Natriuretic peptide B [Mass/volume] in Serum or [id number] 13:54:00 Test Item Value Reference Range Interpretation Comments B-Type Natriuretic Peptide (test 427.5 pg/mL 0.0-100.0 H code = 42435-9) [facility]: Natriuretic peptide B [Mass/volume] in Serum or [id number] 13:54:00 Test Item Value Reference Range Interpretation Comments B-Type Natriuretic Peptide (test 427.5 pg/mL 0.0-100.0 H code = 04346-1) [facility]: Phosphate [Mass/volume] in Serum or Plasma 2020-12-04 02:42:00 Test Item Value Reference Range Interpretation Comments Phosphorus (test code = 2777-1) 4.4 mg/dL 2.8-4.1 H [facility]: Phosphate [Mass/volume] in Serum or Plasma 2020-12-04 02:42:00 Test Item Value Reference Range Interpretation Comments Phosphorus (test code = 2777-1) 4.4 mg/dL 2.8-4.1 H [facility] Description: Phosphate [Mass/volume] in Serum or Plasma 2020-12-04 02:42:00 Test Item Value Reference Range Interpretation Comments Phosphorus (test code = 2777-1) 4.4 mg/dL 2.8-4.1 H [facility] Description: Phosphate [Mass/volume] in Serum or Plasma 2020-12-04 02:42:00 Test Item Value Reference Range Interpretation Comments Phosphorus (test code = 2777-1) 4.4 mg/dL 2.8-4.1 H [facility] Description: Phosphate [Mass/volume] in Serum or Plasma 2020-12-04 02:42:00 Test Item Value Reference Range Interpretation Comments Phosphorus (test code = 2777-1) 4.4 mg/dL 2.8-4.1 H [facility]: Phosphate [Mass/volume] in Serum or Plasma 2020-12-04 02:42:00 Test Item Value Reference Range Interpretation Comments Phosphorus (test code = 2777-1) 4.4 mg/dL 2.8-4.1 H [facility]: Phosphate [Mass/volume] in Serum or Plasma [...] >59 L Am (test code = mL/min/1.73 40390-6) eGFR If Africn Am 37 >59 L [facility] currently (test code = mL/min/1.73 [place] [address]-2) compliance with the current recommendations of the [employer]. [facility] [place] will update re porting as new guidelin es are published from the NKF-ASN Task force.
<br/ >Perfor med by:
[facility] (HD)

BUN/Creatinine 22 9-20 H Ratio (test code = 3097-3) Sodium (test code = 142 mmol/L 583-332 1982-2) Potassium (test 4.3 mmol/L 3.5-5.2 code = 2823-3) Chloride (test code 100 mmol/L 96-106 = 2075-0) Carbon Dioxide, 28 mmol/L 20-29 Total (test code = 2027-11) Calcium (test code 9.2 mg/dL 8.7-10.2 = 55982-9) Protein, Total 6.5 g/dL 6.0-8.5 (test code = 2885-2) Albumin (test code 3.5 g/dL 4.0-5.0 L = 175-7) Globulin, Total 3.0 g/dL 1.5-4.5 (test code = 10826-0) A/G Ratio (test 1.2 1.2-2.2 code = [...] >59 L Am (test code = mL/min/1.73 42893-8) eGFR If Africn Am 37 >59 L [facility] currently (test code = mL/min/1.73 [place] 01412-4) compliance with the current recommendations of the National Kid[employer] Foundation. [facility] [place] will update re porting as new guidelin es are published from the NKF-ASN Task force.
<br/ >Perfor med by:
[facility] Kaur (HD)

BUN/Creatinine 22 9-20 H Ratio (test code = 3097-3) Sodium (test code = 142 mmol/L 425-677 6184-2) Potassium (test 4.3 mmol/L 3.5-5.2 code = 2823-3) Chloride (test code 100 mmol/L 96-106 = 2075-0) Carbon Dioxide, 28 mmol/L 20-29 Total (test code = 2027-) Calcium (test code 9.2 mg/dL 8.7-10.2 = 16725-3) Protein, Total 6.5 g/dL 6.0-8.5 (test code = 2885-2) Albumin (test code 3.5 g/dL 4.0-5.0 L = 1751-7) Globulin, Total 3.0 g/dL 1.5-4.5 (test code = 87800-4) A/G Ratio (test 1.2 1.2-2.2 code = [...] = 1742-6) [facility] Description: Comp. Metabolic Panel (142020-12-04 02:12:00 Test Item Value Reference Range Interpretation Comments Glucose (test code 315 mg/dL 65-99 H = 2345-7) BUN (test code = 52 mg/dL 6-24 H 3094-0) Creatinine (test 2.32 mg/dL 0.76-1.27 H code = 2160-0) eGFR If NonAfricn 32 >59 L Am (test code = mL/min/1.73 86044-4) eGFR If Africn Am 37 >59 L [facility] currently (test code = mL/min/1.73 [place] 31946-3) compliance with the current recommendations of the [employer] Kid[employer]. [facility] [place] will update re porting as new guidelin es are published from the NKF-ASN Task force.
<br/ >Perfor med by:
[facility] Kaur (HD)

BUN/Creatinine 22 9-20 H Ratio (test code = 3097-3) Sodium (test code = 142 mmol/L 983-403 0791-2) Potassium (test 4.3 mmol/L 3.5-5.2 code = 2823-3) Chloride (test code 100 mmol/L 96-106 = 5-0) Carbon Dioxide, 28 mmol/L 20-29 Total (test code = 2027-) Calcium (test code 9.2 mg/dL 8.7-10.2 = 93839-7) Protein, Total 6.5 g/dL 6.0-8.5 (test code = 2885-2) Albumin (test code 3.5 g/dL 4.0-5.0 L = 1751-7) Globulin, Total 3.0 g/dL 1.5-4.5 (test code = 67201-3) A/G Ratio (test 1.2 1.2-2.2 code = [...] >59 L Am (test code = mL/min/1.73 49900-2) eGFR If Africn Am 37 >59 L [facility] currently (test code = mL/min/1.73 [place]GFR in 13976-7) compliance with the current recommendations of the [employer] Kid[employer] Foundation. [facility] [place] will update re porting as new guidelin es are published from the NKF-ASN Task force.
<br/ >Perfor med by:
[facility] [place] (HD)

BUN/Creatinine 22 9-20 H Ratio (test code = 3097-3) Sodium (test code = 142 mmol/L 981-454 3785-2) Potassium (test 4.3 mmol/L 3.5-5.2 code = 2823-3) Chloride (test code 100 mmol/L 96-106 = 2075-0) Carbon Dioxide, 28 mmol/L 20-29 Total (test code = 2027-) Calcium (test code 9.2 mg/dL 8.7-10.2 = 99854-6) Protein, Total 6.5 g/dL 6.0-8.5 (test code = 2885-2) Albumin (test code 3.5 g/dL 4.0-5.0 L = 1751-7) Globulin, Total 3.0 g/dL 1.5-4.5 (test code = 97664-9) A/G Ratio (test 1.2 1.2-2.2 code = 1759-0) Bilirubin, Total 0.4 mg/dL 0.0-1.2 (test code = 1975-2) Alkaline 107 IU/L 48-121 Phosphatase (test Effectiv e November code = 6768-6) 13, 2021 Mayelin line Phosphatase referenc e interval will [...] >59 L Am (test code = mL/min/1.73 27292-9) eGFR If Africn Am 37 >59 L [facility] currently (test code = mL/min/1.73 [place] [address]-5) compliance with the current recommendations of the National Kidney [facility] [place] will update re porting as new guidelin es are published from the [facility]-ASN Task force.
<br/ >Perfor med by:
[facility] [place] [facility] (HD)

BUN/Creatinine 22 9-20 H Ratio (test code = 3097-3) Sodium (test code = 142 mmol/L 661-990 8202-2) Potassium (test 4.3 mmol/L 3.5-5.2 code = 2823-3) Chloride (test code 100 mmol/L 96-106 = 2074-0) Carbon Dioxide, 28 mmol/L 20-29 Total (test code = 2027-) Calcium (test code 9.2 mg/dL 8.7-10.2 = 62768-3) Protein, Total 6.5 g/dL 6.0-8.5 (test code = 2885-2) Albumin (test code 3.5 g/dL 4.0-5.0 L = 175-7) Globulin, Total 3.0 g/dL 1.5-4.5 (test code = 92956-7) A/G Ratio (test 1.2 1.2-2.2 code = [...] >59 L Am (test code = mL/min/1.73 86081-5) eGFR If Africn Am 37 >59 L [facility] currently (test code = mL/min/1.73 [place] [address]-4) compliance with the current recommendations of the [employer]. [facility] [place] will update re porting as new guidelin es are published from the [facility]-ASN Task force.
<br/ >Perfor med by:
[facility] [place] (HD)

BUN/Creatinine 22 9-20 H Ratio (test code = 3097-3) Sodium (test code = 142 mmol/L 388-573 7430-2) Potassium (test 4.3 mmol/L 3.5-5.2 code = 2823-3) Chloride (test code 100 mmol/L 96-106 = 2075-0) Carbon Dioxide, 28 mmol/L 20-29 Total (test code = 2027-) Calcium (test code 9.2 mg/dL 8.7-10.2 = 52316-9) Protein, Total 6.5 g/dL 6.0-8.5 (test code = 2885-2) Albumin (test code 3.5 g/dL 4.0-5.0 L = 1751-7) Globulin, Total 3.0 g/dL 1.5-4.5 (test code = 89309-3) A/G Ratio (test 1.2 1.2-2.2 code = [...] >59 L Am (test code = mL/min/1.73 80830-7) eGFR If Africn Am 37 >59 L [facility] currently (test code = mL/min/1.73 [place] [address]-8) compliance with the current recommendations of the [employer]. [facility] [place] will update re porting as new guidelin es are published from the [facility]-ASN Task force.
<br/ >Perfor med by:
[facility] [place] (HD)

BUN/Creatinine 22 9-20 H Ratio (test code = 3097-3) Sodium (test code = 142 mmol/L 275-987 5330-2) Potassium (test 4.3 mmol/L 3.5-5.2 code = 2823-3) Chloride (test code 100 mmol/L 96-106 = 5-0) Carbon Dioxide, 28 mmol/L 20-29 Total (test code = 2027-) Calcium (test code 9.2 mg/dL 8.7-10.2 = 21012-8) Protein, Total 6.5 g/dL 6.0-8.5 (test code = 2885-2) Albumin (test code 3.5 g/dL 4.0-5.0 L = 1751-7) Globulin, Total 3.0 g/dL 1.5-4.5 (test code = 23481-1) A/G Ratio (test 1.2 1.2-2.2 code = [...] >59 L Am (test code = mL/min/1.73 53439-0) eGFR If Africn Am 37 >59 L [facility] currently (test code = mL/min/1.73 [place] 22015-6) compliance with the current recommendations of the [employer]. [facility] [place] will update re porting as new guidelin es are published from the [facility]-ASN Task force.
<br/ >Perfor med by:
[facility] [place] [facility] (HD)

BUN/Creatinine 22 9-20 H Ratio (test code = 3097-3) Sodium (test code = 142 mmol/L 262-368 0834-2) Potassium (test 4.3 mmol/L 3.5-5.2 code = 2823-3) Chloride (test code 100 mmol/L 96-106 = 2075-0) Carbon Dioxide, 28 mmol/L 20-29 Total (test code = 2027-) Calcium (test code 9.2 mg/dL 8.7-10.2 = 62468-0) Protein, Total 6.5 g/dL 6.0-8.5 (test code = 2885-2) Albumin (test code 3.5 g/dL 4.0-5.0 L = 1751-7) Globulin, Total 3.0 g/dL 1.5-4.5 (test code = 30133-3) A/G Ratio (test 1.2 1.2-2.2 code = [...] 44 - 121

Pe rformed by:
[facility] [place] ([place])

AST (SGOT) (test 20 IU/L 0-40 [...] >59 L Am (test code = mL/min/1.73 88104-7) eGFR If Africn Am 37 >59 L [facility] currently (test code = mL/min/1.73 [place] 23574-7) compliance with the current recommendations of the [employer]. [facility] [place] will update re porting as new guidelin es are published from the [facility]-ASN Task force.
<br/ >Perfor med by:
[facility] [place] (HD)

BUN/Creatinine 22 9-20 H Ratio (test code = 3097-3) Sodium (test code = 142 mmol/L 381-640 3994-2) Potassium (test 4.3 mmol/L 3.5-5.2 code = 2823-3) Chloride (test code 100 mmol/L 96-106 = 2075-0) Carbon Dioxide, 28 mmol/L 20-29 Total (test code = 2027-) Calcium (test code 9.2 mg/dL 8.7-10.2 = 46408-0) Protein, Total 6.5 g/dL 6.0-8.5 (test code = 2885-2) Albumin (test code 3.5 g/dL 4.0-5.0 L = 1751-7) Globulin, Total 3.0 g/dL 1.5-4.5 (test code = 96000-6) A/G Ratio (test 1.2 1.2-2.2 code = [...] 44 - 121

Pe rformed by:
[facility] ([place])

AST (SGOT) (test 20 IU/L 0-40 [...] >59 L Am (test code = mL/min/1.73 82103-2) eGFR If Africn Am 37 >59 L [facility] currently (test code = mL/min/1.73 [place] [address]-5) compliance with the current recommendations of the [employer]. [facility] [place] will update re porting as new guidelin es are published from the [facility]-ASN Task force.
<br/ >Perfor med by:
[facility] [place] [facility] (HD)

BUN/Creatinine 22 9-20 H Ratio (test code = 3097-3) Sodium (test code = 142 mmol/L 007-342 8537-2) Potassium (test 4.3 mmol/L 3.5-5.2 code = 2823-3) Chloride (test code 100 mmol/L 96-106 = 5-0) Carbon Dioxide, 28 mmol/L 20-29 Total (test code = 2027-) Calcium (test code 9.2 mg/dL 8.7-10.2 = 26270-2) Protein, Total 6.5 g/dL 6.0-8.5 (test code = 2885-2) Albumin (test code 3.5 g/dL 4.0-5.0 L = 1751-7) Globulin, Total 3.0 g/dL 1.5-4.5 (test code = 32362-6) A/G Ratio (test 1.2 1.2-2.2 code = [...] 44 - 121

Pe rformed by:
[facility] [place] (HD)

AST (SGOT) (test 20 IU/L 0-40 [...] >59 L Am (test code = mL/min/1.73 27382-7) eGFR If Africn Am 37 >59 L [facility] currently (test code = mL/min/1.73 [place] [address]-7) compliance with the current recommendations of the [employer]. [facility] [place] will update re porting as new guidelin es are published from the [facility]-ASN Task force.
<br/ >Perfor med by:
[facility] [place] ([place])

BUN/Creatinine 22 9-20 H Ratio (test code = 3097-3) Sodium (test code = 142 mmol/L 781-615 1635-2) Potassium (test 4.3 mmol/L 3.5-5.2 code = 2823-3) Chloride (test code 100 mmol/L 96-106 = 2075-0) Carbon Dioxide, 28 mmol/L 20-29 Total (test code = 2027-9) Calcium (test code 9.2 mg/dL 8.7-10.2 = 21773-3) Protein, Total 6.5 g/dL 6.0-8.5 (test code = 2885-2) Albumin (test code 3.5 g/dL 4.0-5.0 L = 1751-7) Globulin, Total 3.0 g/dL 1.5-4.5 (test code = 10590-4) A/G Ratio (test 1.2 1.2-2.2 code = [...] 44 - 121

Pe rformed by:
[facility] [place] (HD)

AST (SGOT) (test 20 IU/L 0-40 [...] >59 L Am (test code = mL/min/1.73 15639-1) eGFR If Africn Am 37 >59 L [facility] currently (test code = mL/min/1.73 [place] 04758-1) compliance with the current recommendations of the [employer]. [facility] [place] will update re porting as new guidelin es are published from the [facility]F-ASN Task force.
<br/ >Perfor med by:
[facility] [place] [facility] ([place])

BUN/Creatinine 22 9-20 H Ratio (test code = 3097-3) Sodium (test code = 142 mmol/L 786-144 5550-2) Potassium (test 4.3 mmol/L 3.5-5.2 code = 2823-3) Chloride (test code 100 mmol/L 96-106 = 2075-0) Carbon Dioxide, 28 mmol/L 20-29 Total (test code = 2027-) Calcium (test code 9.2 mg/dL 8.7-10.2 = 34820-9) Protein, Total 6.5 g/dL 6.0-8.5 (test code = 2885-2) Albumin (test code 3.5 g/dL 4.0-5.0 L = 1751-7) Globulin, Total 3.0 g/dL 1.5-4.5 (test code = 84017-9) A/G Ratio (test 1.2 1.2-2.2 code = [...] 44 - 121

Pe rformed by:
[facility] [place] ([place])

AST (SGOT) (test 20 IU/L 0-40 [...] >59 L Am (test code = mL/min/1.73 30488-3) eGFR If Africn Am 37 >59 L [facility] currently (test code = mL/min/1.73 [place] [address]2857-8) compliance with the current recommendations of the [employer]. [facility] [place] will update re porting as new guidelin es are published from the [facility]F-ASN Task force.
<br/ >Perfor med by:
[facility] [place] ([place])

BUN/Creatinine 22 9-20 H Ratio (test code = 3097-3) Sodium (test code = 142 mmol/L 719-740 9648-2) Potassium (test 4.3 mmol/L 3.5-5.2 code = 2823-3) Chloride (test code 100 mmol/L 96-106 = 2075-0) Carbon Dioxide, 28 mmol/L 20-29 Total (test code = 2027-) Calcium (test code 9.2 mg/dL 8.7-10.2 = 03037-7) Protein, Total 6.5 g/dL 6.0-8.5 (test code = 2885-2) Albumin (test code 3.5 g/dL 4.0-5.0 L = 1751-7) Globulin, Total 3.0 g/dL 1.5-4.5 (test code = 62177-4) A/G Ratio (test 1.2 1.2-2.2 code = [...] >59 L Am (test code = mL/min/1.73 26923-3) eGFR If Africn Am 37 >59 L [facility] currently (test code = mL/min/1.73 [place] [address]-5) compliance with the current recommendations of the [employer]. [facility] [place] will update re porting as new guidelin es are published from the [facility]F-ASN Task force.
<br/ >Perfor med by:
[facility] [place] [facility] (HD)

BUN/Creatinine 22 9-20 H Ratio (test code = 3097-3) Sodium (test code = 142 mmol/L 020-421 1611-2) Potassium (test 4.3 mmol/L 3.5-5.2 code = 2823-3) Chloride (test code 100 mmol/L 96-106 = 2075-0) Carbon Dioxide, 28 mmol/L 20-29 Total (test code = 2027-) Calcium (test code 9.2 mg/dL 8.7-10.2 = 15693-2) Protein, Total 6.5 g/dL 6.0-8.5 (test code = 2885-2) Albumin (test code 3.5 g/dL 4.0-5.0 L = 1751-7) Globulin, Total 3.0 g/dL 1.5-4.5 (test code = 81700-7) A/G Ratio (test 1.2 1.2-2.2 code = [...] 44 - 121

Pe rformed by:
[facility] [place] ([place])

AST (SGOT) (test 20 IU/L 0-40 [...] >59 L Am (test code = mL/min/1.73 32883-9) eGFR If Africn Am 37 >59 L [facility] currently (test code = mL/min/1.73 [place] 02609-5) compliance with the current recommendations of the [employer]. [facility] [place] will update re porting as new guidelin es are published from the [facility]F-ASN Task force.
<br/ >Perfor med by:
[facility] [place] ([place])

BUN/Creatinine 22 9-20 H Ratio (test code = 3097-3) Sodium (test code = 142 mmol/L 133-073 0039-2) Potassium (test 4.3 mmol/L 3.5-5.2 code = 2823-3) Chloride (test code 100 mmol/L 96-106 = 2075-0) Carbon Dioxide, 28 mmol/L 20-29 Total (test code = 2027-) Calcium (test code 9.2 mg/dL 8.7-10.2 = 35801-0) Protein, Total 6.5 g/dL 6.0-8.5 (test code = 2885-2) Albumin (test code 3.5 g/dL 4.0-5.0 L = 1751-7) Globulin, Total 3.0 g/dL 1.5-4.5 (test code = 46969-5) A/G Ratio (test 1.2 1.2-2.2 code = [...] 44 - 121

Pe rformed by:
[facility] [place] ([place])

AST (SGOT) (test 20 IU/L 0-40 [...] >59 L Am (test code = mL/min/1.73 71465-9) eGFR If Africn Am 37 >59 L [facility] currently (test code = mL/min/1.73 [place] 75604-2) compliance with the current recommendations of the [employer]. [facility] [place] will update re porting as new guidelin es are published from the [facility]F-ASN Task force.
<br/ >Perfor med by:
[facility] [place] [facility] ([place])

BUN/Creatinine 22 9-20 H Ratio (test code = 3097-3) Sodium (test code = 142 mmol/L 013-376 8597-2) Potassium (test 4.3 mmol/L 3.5-5.2 code = 2823-3) Chloride (test code 100 mmol/L 96-106 = 2075-0) Carbon Dioxide, 28 mmol/L 20-29 Total (test code = 2027-) Calcium (test code 9.2 mg/dL 8.7-10.2 = 11088-4) Protein, Total 6.5 g/dL 6.0-8.5 (test code = 2885-2) Albumin (test code 3.5 g/dL 4.0-5.0 L = 1751-7) Globulin, Total 3.0 g/dL 1.5-4.5 (test code = 39630-1) A/G Ratio (test 1.2 1.2-2.2 code = [...] 44 - 121

Pe rformed by:
[facility] [place] ([place])

AST (SGOT) (test 20 IU/L 0-40 [...] >59 L Am (test code = mL/min/1.73 64248-6) eGFR If Africn Am 37 >59 L [facility] currently (test code = mL/min/1.73 [place] [address]42-0) compliance with the current recommendations of the [employer]. [facility] [place] will update re porting as new guidelin es are published from the [facility]F-ASN Task force.
<br/ >Perfor med by:
[facility] [place] ([place])

BUN/Creatinine 22 9-20 H Ratio (test code = 3097-3) Sodium (test code = 142 mmol/L 090-998 5318-2) Potassium (test 4.3 mmol/L 3.5-5.2 code = 2823-3) Chloride (test code 100 mmol/L 96-106 = 2075-0) Carbon Dioxide, 28 mmol/L 20-29 Total (test code = 2027-) Calcium (test code 9.2 mg/dL 8.7-10.2 = 33930-2) Protein, Total 6.5 g/dL 6.0-8.5 (test code = 2885-2) Albumin (test code 3.5 g/dL 4.0-5.0 L = 1751-7) Globulin, Total 3.0 g/dL 1.5-4.5 (test code = 75271-6) A/G Ratio (test 1.2 1.2-2.2 code = [...] 44 - 121

Pe rformed by:
[facility] [place] ([place])

AST (SGOT) (test 20 IU/L 0-40 [...] >59 L Am (test code = mL/min/1.73 38098-7) eGFR If Africn Am 37 >59 L [facility] currently (test code = mL/min/1.73 [place] [address]-1) compliance with the current recommendations of the [employer]. [facility] [place] will update re porting as new guidelin es are published from the [facility]F-ASN Task force.
<br/ >Perfor med by:
[facility] [place] ([place])

BUN/Creatinine 22 9-20 H Ratio (test code = 3097-3) Sodium (test code = 142 mmol/L 736-115 7020-2) Potassium (test 4.3 mmol/L 3.5-5.2 code = 2823-3) Chloride (test code 100 mmol/L 96-106 = 2075-0) Carbon Dioxide, 28 mmol/L 20-29 Total (test code = 2027-) Calcium (test code 9.2 mg/dL 8.7-10.2 = 03323-5) Protein, Total 6.5 g/dL 6.0-8.5 (test code = 2885-2) Albumin (test code 3.5 g/dL 4.0-5.0 L = 1751-7) Globulin, Total 3.0 g/dL 1.5-4.5 (test code = 71726-8) A/G Ratio (test 1.2 1.2-2.2 code = [...] >59 L Am (test code = mL/min/1.73 57877-5) eGFR If Africn Am 37 >59 L [facility] currently (test code = mL/min/1.73 [place] [address]-0) compliance with the current recommendations of the [employer]. [facility] [place] will update re porting as new guidelin es are published from the [facility]F-ASN Task force.
<br/ >Perfor med by:
[facility] [place] [facility] (HD)

BUN/Creatinine 22 9-20 H Ratio (test code = 3097-3) Sodium (test code = 142 mmol/L 052-048 2717-2) Potassium (test 4.3 mmol/L 3.5-5.2 code = 2823-3) Chloride (test code 100 mmol/L 96-106 = 2075-0) Carbon Dioxide, 28 mmol/L 20-29 Total (test code = 2027-9) Calcium (test code 9.2 mg/dL 8.7-10.2 = 37552-0) Protein, Total 6.5 g/dL 6.0-8.5 (test code = 2885-2) Albumin (test code 3.5 g/dL 4.0-5.0 L = 1751-7) Globulin, Total 3.0 g/dL 1.5-4.5 (test code = 66927-2) A/G Ratio (test 1.2 1.2-2.2 code = [...] >59 L Am (test code = mL/min/1.73 87753-8) eGFR If Africn Am 37 >59 L [facility] currently (test code = mL/min/1.73 [place] 27318-3) compliance with the current recommendations of the [employer]. [facility] [place] will update re porting as new guidelin es are published from the [facility]F-ASN Task force.
<br/ >Perfor med by:
[facility] [place] [facility] ([place])

BUN/Creatinine 22 9-20 H Ratio (test code = 3097-3) Sodium (test code = 142 mmol/L 925-567 6489-2) Potassium (test 4.3 mmol/L 3.5-5.2 code = 2823-3) Chloride (test code 100 mmol/L 96-106 = 2075-0) Carbon Dioxide, 28 mmol/L 20-29 Total (test code = 2027-) Calcium (test code 9.2 mg/dL 8.7-10.2 = 78707-8) Protein, Total 6.5 g/dL 6.0-8.5 (test code = 2885-2) Albumin (test code 3.5 g/dL 4.0-5.0 L = 1751-7) Globulin, Total 3.0 g/dL 1.5-4.5 (test code = 99855-3) A/G Ratio (test 1.2 1.2-2.2 code = [...] Natriuretic peptide B [Mass/volume] in Serum or [id number] 14:32:00 Test Item Value Reference Range Interpretation Comments B-Type Natriuretic Peptide (test 682.3 pg/mL 0.0-100.0 H code = 66365-4) [facility] Description: Natriuretic peptide B [Mass/volume] in Serum or [id number] 14:32:00 Test Item Value Reference Range Interpretation Comments B-Type Natriuretic Peptide (test 682.3 pg/mL 0.0-100.0 H code = 91675-9) [facility] Description: Natriuretic peptide B [Mass/volume] in Serum or [id number] 14:32:00 Test Item Value Reference Range Interpretation Comments B-Type Natriuretic Peptide (test 682.3 pg/mL 0.0-100.0 H code = 88266-4) [facility] Description: Natriuretic peptide B [Mass/volume] in Serum or [id number] 14:32:00 Test Item Value Reference Range Interpretation Comments B-Type Natriuretic Peptide (test 682.3 pg/mL 0.0-100.0 H code = 04835-2) [facility] Description: Natriuretic peptide B [Mass/volume] in Serum or Daqlze3594-79-58 14:32:00 Test Item Value Reference Range Interpretation Comments B-Type Natriuretic Peptide (test 682.3 pg/mL 0.0-100.0 H code = 52541-3) [facility] Description: Natriuretic peptide B [Mass/volume] in Serum or [id number] 14:32:00 Test Item Value Reference Range Interpretation Comments B-Type Natriuretic Peptide (test 682.3 pg/mL 0.0-100.0 H code = 28398-9) [facility] Description: Natriuretic peptide B [Mass/volume] in Serum or [id number] 14:32:00 Test Item Value Reference Range Interpretation Comments B-Type Natriuretic Peptide (test 682.3 pg/mL 0.0-100.0 H code = 92080-5) [facility] Description: Natriuretic peptide B [Mass/volume] in Serum or [id number] 14:32:00 Test Item Value Reference Range Interpretation Comments B-Type Natriuretic Peptide (test 682.3 pg/mL 0.0-100.0 H code = 21909-4) [facility] Description: Natriuretic peptide B [Mass/volume] in Serum or [id number] 14:32:00 Test Item Value Reference Range Interpretation Comments B-Type Natriuretic Peptide (test 682.3 pg/mL 0.0-100.0 H code = 52587-3) [facility] Description: Natriuretic peptide B [Mass/volume] in Serum or Rgzkhk5714-19-69 14:32:00 Test Item Value Reference Range Interpretation Comments B-Type Natriuretic Peptide (test 682.3 pg/mL 0.0-100.0 H code = 25585-4) [facility] Description: Natriuretic peptide B [Mass/volume] in Serum or [id number] 14:32:00 Test Item Value Reference Range Interpretation Comments B-Type Natriuretic Peptide (test 682.3 pg/mL 0.0-100.0 H code = 21382-4) [facility] Description: Natriuretic peptide B [Mass/volume] in Serum or [id number] 14:32:00 Test Item Value Reference Range Interpretation Comments B-Type Natriuretic Peptide (test 682.3 pg/mL 0.0-100.0 H code = 14543-4) [facility] Description: Natriuretic peptide B [Mass/volume] in Serum or Labcdp8599-39-86 14:32:00 Test Item Value Reference Range Interpretation Comments B-Type Natriuretic Peptide (test 682.3 pg/mL 0.0-100.0 H code = 18807-5) [facility] Description: Natriuretic peptide B [Mass/volume] in Serum or Nvbynf2463-71-69 14:32:00 Test Item Value Reference Range Interpretation Comments B-Type Natriuretic Peptide (test 682.3 pg/mL 0.0-100.0 H code = 65964-4) [facility] Description: Natriuretic peptide B [Mass/volume] in Serum or [id number] 14:32:00 Test Item Value Reference Range Interpretation Comments B-Type Natriuretic Peptide (test 682.3 pg/mL 0.0-100.0 H code = 85559-2) [facility] Description: Natriuretic peptide B [Mass/volume] in Serum or [id number] 14:32:00 Test Item Value Reference Range Interpretation Comments B-Type Natriuretic Peptide (test 682.3 pg/mL 0.0-100.0 H code = 61178-3) [facility] Description: Natriuretic peptide B [Mass/volume] in Serum or [id number] 14:32:00 Test Item Value Reference Range Interpretation Comments B-Type Natriuretic Peptide (test 682.3 pg/mL 0.0-100.0 H code = 10613-8) [facility] Description: Natriuretic peptide B [Mass/volume] in Serum or [id number] 14:32:00 Test Item Value Reference Range Interpretation Comments B-Type Natriuretic Peptide (test 682.3 pg/mL 0.0-100.0 H code = 70826-7) [facility] Description: Natriuretic peptide B [Mass/volume] in Serum or [id number] 14:32:00 Test Item Value Reference Range Interpretation Comments B-Type Natriuretic Peptide (test 682.3 pg/mL 0.0-100.0 H code = 96657-3) [facility] Description: Natriuretic peptide B [Mass/volume] in Serum or [id number] 14:32:00 Test Item Value Reference Range Interpretation Comments B-Type Natriuretic Peptide (test 682.3 pg/mL 0.0-100.0 H code = 24359-3) [facility] Description: Natriuretic peptide B [Mass/volume] in Serum or [id number] 14:32:00 Test Item Value Reference Range Interpretation Comments B-Type Natriuretic Peptide (test 682.3 pg/mL 0.0-100.0 H code = 59514-2) [facility] Description: Natriuretic peptide B [Mass/volume] in Serum or Rmnwlv5432-71-17 14:32:00 Test Item Value Reference Range Interpretation Comments B-Type Natriuretic Peptide (test 682.3 pg/mL 0.0-100.0 H code = 65230-0) [facility] Description: Parathyrin.intact [Mass/volume] in Serum or Zjuqgu7330-18-81 08:48:00 Test Item Value Reference Range Interpretation Comments PTH, Intact (test code = 2731-8) 147 pg/mL 15-65 H [facility] Description: Parathyrin.intact [Mass/volume] in Serum or Pekana2331-14-97 08:48:00 Test Item Value Reference Range Interpretation Comments PTH, Intact (test code = 2731-8) 147 pg/mL 15-65 H [facility] Description: Parathyrin.intact [Mass/volume] in Serum or Muriek1904-37-11 08:48:00 Test Item Value Reference Range Interpretation Comments PTH, Intact (test code = 2731-8) 147 pg/mL 15-65 H [facility] Description: Parathyrin.intact [Mass/volume] in Serum or Uyuuvx5836-39-65 08:48:00 Test Item Value Reference Range Interpretation Comments PTH, Intact (test code = 2731-8) 147 pg/mL 15-65 H [facility] Description: Parathyrin.intact [Mass/volume] in Serum or Aqicig8407-74-39 08:48:00 Test Item Value Reference Range Interpretation Comments PTH, Intact (test code = 2731-8) 147 pg/mL 15-65 H [facility] Description: Parathyrin.intact [Mass/volume] in Serum or Seledc8991-51-04 08:48:00 Test Item Value Reference Range Interpretation Comments PTH, Intact (test code = 2731-8) 147 pg/mL 15-65 H [facility] Description: Parathyrin.intact [Mass/volume] in Serum or Tnapgh4369-06-32 08:48:00 Test Item Value Reference Range Interpretation Comments PTH, Intact (test code = 2731-8) 147 pg/mL 15-65 H [facility] Description: Parathyrin.intact [Mass/volume] in Serum or Cjlaef2669-11-11 08:48:00 Test Item Value Reference Range Interpretation Comments PTH, Intact (test code = 2731-8) 147 pg/mL 15-65 H [facility] Description: Parathyrin.intact [Mass/volume] in Serum or Xudnhh4355-68-45 08:48:00 Test Item Value Reference Range Interpretation Comments PTH, Intact (test code = 2731-8) 147 pg/mL 15-65 H [facility] Description: Parathyrin.intact [Mass/volume] in Serum or Cneuaz9160-90-54 08:48:00 Test Item Value Reference Range Interpretation Comments PTH, Intact (test code = 2731-8) 147 pg/mL 15-65 H [facility] Description: Parathyrin.intact [Mass/volume] in Serum or Lfpkzb4213-50-83 08:48:00 Test Item Value Reference Range Interpretation Comments PTH, Intact (test code = 2731-8) 147 pg/mL 15-65 H [facility] Description: Parathyrin.intact [Mass/volume] in Serum or Jryvqc6988-25-70 08:48:00 Test Item Value Reference Range Interpretation Comments PTH, Intact (test code = 2731-8) 147 pg/mL 15-65 H [facility] Description: Parathyrin.intact [Mass/volume] in Serum or Uhiogp8877-54-51 08:48:00 Test Item Value Reference Range Interpretation Comments PTH, Intact (test code = 2731-8) 147 pg/mL 15-65 [facility] Description: Parathyrin.intact [Mass/volume] in Serum or [id number] 08:48:00 Test Item Value Reference Range Interpretation Comments PTH, Intact (test code = 2731-8) 147 pg/mL 15-65 [facility] Description: Parathyrin.intact [Mass/volume] in Serum or [id number] 08:48:00 Test Item Value Reference Range Interpretation Comments PTH, Intact (test code = 2731-8) 147 pg/mL 15-65 [facility] Description: Parathyrin.intact [Mass/volume] in Serum or [id number] 08:48:00 Test Item Value Reference Range Interpretation Comments PTH, Intact (test code = 2731-8) 147 pg/mL 15-65 [facility] Description: Parathyrin.intact [Mass/volume] in Serum or [id number] 08:48:00 Test Item Value Reference Range Interpretation Comments PTH, Intact (test code = 2731-8) 147 pg/mL 15-65 [facility] Description: Parathyrin.intact [Mass/volume] in Serum or [id number] 08:48:00 Test Item Value Reference Range Interpretation Comments PTH, Intact (test code = 2731-8) 147 pg/mL 15-65 [facility] Description: Parathyrin.intact [Mass/volume] in Serum or [id number] 08:48:00 Test Item Value Reference Range Interpretation Comments PTH, Intact (test code = 2731-8) 147 pg/mL 15-65 [facility] Description: Parathyrin.intact [Mass/volume] in Serum or [id number] 08:48:00 Test Item Value Reference Range Interpretation Comments PTH, Intact (test code = 2731-8) 147 pg/mL 15-65 [facility] Description: Parathyrin.intact [Mass/volume] in Serum or [id number] 08:48:00 Test Item Value Reference Range Interpretation Comments PTH, Intact (test code = 2731-8) 147 pg/mL 15-65 [facility] Description: Parathyrin.intact [Mass/volume] in Serum or [id number] 08:48:00 Test Item Value Reference Range Interpretation Comments PTH, Intact (test code = 2731-8) 147 pg/mL 15-65 H [facility] Description: Hemoglobin A1c/Hemoglobin.total in Blood 2020-10-30 05:01:00 Test Item Value Reference Range Interpretation Comments Hemoglobin A1c (test code 8.4 % 4.8-5.6 H = 4548-4) . Prediabetes: 5. 7 - 6.4 Diabetes : >6.4 Glycemic control for adults with diabetes: <7.0

P erformed by:
[facility] ([place])

[facility] Description: Hemoglobin A1c/Hemoglobin.total in Blood 2020-10-30 05:01:00 Test Item Value Reference Range Interpretation Comments Hemoglobin A1c (test code 8.4 % 4.8-5.6 H = 4548-4) . Prediabetes: 5. 7 - 6.4 Diabetes : >6.4 Glycemic control for adults with diabetes: <7.0

P erformed by:
[facility] ([place])

[facility] Description: Hemoglobin A1c/Hemoglobin.total in Blood [...] with diabetes: <7.0

P erformed by:
[facility] ([place])

[facility] Description: Hemoglobin A1c/Hemoglobin.total in Blood 2020-10-30 05:01:00 Test Item Value Reference Range Interpretation Comments Hemoglobin A1c (test code 8.4 % 4.8-5.6 H = 4548-4) . Prediabetes: 5. 7 - 6.4 Diabetes : >6.4 Glycemic control for adults with diabetes: <7.0

P erformed by:
[facility] ([place])

[facility] Description: Hemoglobin A1c/Hemoglobin.total in Blood 2020-10-30 05:01:00 Test Item Value Reference Range Interpretation Comments Hemoglobin A1c (test code 8.4 % 4.8-5.6 H = 4548-4) . Prediabetes: 5. 7 - 6.4 Diabetes : >6.4 Glycemic control for adults with diabetes: <7.0

P erformed by:
[facility] ([place])

[facility] Description: Microscopic Bgmodjdvjls1457-20-39 04:44:00 Test Item Value Reference Range Interpretation Comments WBC (test code = 5821-4) None seen 0-5 RBC (test code = 83513-1) None seen 0-2 Epithelial Cells (non renal) (test None seen 0-10 code = 5787-7) Epithelial Cells (renal) (test code = 32521-0) Casts (test code = 69613-3) None seen None seen Cast Type (test code = 08596-6) Crystals (test code = 5783-6) Crystal Type (test code = 5782-8) Mucus Threads (test code = 8247-9) Bacteria (test code = 5769-5) None seen None seen/Few Yeast (test code = 5822-2) Trichomonas (test code = 5813-1) Comment (test code = 94501-4) [facility] Description: Microscopic Icbjtzcpryo4587-94-06 04:44:00 Test Item Value Reference Range Interpretation Comments WBC (test code = 5821-4) None seen 0-5 RBC (test code = 04812-8) None seen 0-2 Epithelial Cells (non renal) (test None seen 0-10 code = 5787-7) Epithelial Cells (renal) (test code = 62497-5) Casts (test code = 59774-6) None seen None seen Cast Type (test code = 70378-4) Crystals (test code = 5783-6) Crystal Type (test code = 5782-8) Mucus Threads (test code = 8247-9) Bacteria (test code = 5769-5) None seen None seen/Few Yeast (test code = 5822-2) Trichomonas (test code = 5813-1) Comment (test code = 34523-8) [facility] Description: Microscopic Keucqgvfdhs6843-32-87 04:44:00 Test Item Value Reference Range Interpretation Comments WBC (test code = 5821-4) None seen 0-5 RBC (test code = 01915-2) None seen 0-2 Epithelial Cells (non renal) (test None seen 0-10 code = 5787-7) Epithelial Cells (renal) (test code = 73568-0) Casts (test code = 99191-7) None seen None seen Cast Type (test code = 26799-2) Crystals (test code = 5783-6) Crystal Type (test code = 5782-8) Mucus Threads (test code = 8247-9) Bacteria (test code = 5769-5) None seen None seen/Few Yeast (test code = 5822-2) Trichomonas (test code = 5813-1) Comment (test code = 03438-9) [facility] Description: Microscopic Gvvfosyifgp2523-15-92 04:44:00 Test Item Value Reference Range Interpretation Comments WBC (test code = 5821-4) None seen 0-5 RBC (test code = 43823-4) None seen 0-2 Epithelial Cells (non renal) (test None seen 0-10 code = 5787-7) Epithelial Cells (renal) (test code = 57586-7) Casts (test code = 43092-7) None seen None seen Cast Type (test code = 89759-8) Crystals (test code = 5783-6) Crystal Type (test code = 5782-8) Mucus Threads (test code = 8247-9) Bacteria (test code = 5769-5) None seen None seen/Few Yeast (test code = 5822-2) Trichomonas (test code = 5813-1) Comment (test code = 26839-8) [facility] Description: Microscopic Owoxzihclgx0371-65-34 04:44:00 Test Item Value Reference Range Interpretation Comments WBC (test code = 5821-4) None seen 0-5 RBC (test code = 54557-2) None seen 0-2 Epithelial Cells (non renal) (test None seen 0-10 code = 5787-7) Epithelial Cells (renal) (test code = 55083-9) Casts (test code = 79168-1) None seen None seen Cast Type (test code = 81626-1) Crystals (test code = 5783-6) Crystal Type (test code = 5782-8) Mucus Threads (test code = 8247-9) Bacteria (test code = 5769-5) None seen None seen/Few Yeast (test code = 5822-2) Trichomonas (test code = 5813-1) Comment (test code = 09828-3) [facility] Description: Microscopic Hhiagzcijhk0116-94-19 04:44:00 Test Item Value Reference Range Interpretation Comments WBC (test code = 5821-4) None seen 0-5 RBC (test code = 42072-3) None seen 0-2 Epithelial Cells (non renal) (test None seen 0-10 code = 5787-7) Epithelial Cells (renal) (test code = 95247-7) Casts (test code = 99399-3) None seen None seen Cast Type (test code = 88975-0) Crystals (test code = 5783-6) Crystal Type (test code = 5782-8) Mucus Threads (test code = 8247-9) Bacteria (test code = 5769-5) None seen None seen/Few Yeast (test code = 5822-2) Trichomonas (test code = 5813-1) Comment (test code = 07137-6) [facility] Description: Microscopic Xjfqqkkiibt0334-32-55 04:44:00 Test Item Value Reference Range Interpretation Comments WBC (test code = 5821-4) None seen 0-5 RBC (test code = 43669-6) None seen 0-2 Epithelial Cells (non renal) (test None seen 0-10 code = 5787-7) Epithelial Cells (renal) (test code = 77363-7) Casts (test code = 33009-2) None seen None seen Cast Type (test code = 02305-9) Crystals (test code = 5783-6) Crystal Type (test code = 5782-8) Mucus Threads (test code = 8247-9) Bacteria (test code = 5769-5) None seen None seen/Few Yeast (test code = 5822-2) Trichomonas (test code = 5813-1) Comment (test code = 59708-6) [facility] Description: Microscopic Klzxgksjmhk4861-77-33 04:44:00 Test Item Value Reference Range Interpretation Comments WBC (test code = 5821-4) None seen 0-5 RBC (test code = 71911-9) None seen 0-2 Epithelial Cells (non renal) (test None seen 0-10 code = 5787-7) Epithelial Cells (renal) (test code = 22180-4) Casts (test code = 31452-0) None seen None seen Cast Type (test code = 49477-3) Crystals (test code = 5783-6) Crystal Type (test code = 5782-8) Mucus Threads (test code = 8247-9) Bacteria (test code = 5769-5) None seen None seen/Few Yeast (test code = 5822-2) Trichomonas (test code = 5813-1) Comment (test code = 05500-8) [facility] Description: Microscopic Xsnguifmrvs6165-65-39 04:44:00 Test Item Value Reference Range Interpretation Comments WBC (test code = 5821-4) None seen 0-5 RBC (test code = 67717-6) None seen 0-2 Epithelial Cells (non renal) (test None seen 0-10 code = 5787-7) Epithelial Cells (renal) (test code = 69158-3) Casts (test code = 92748-6) None seen None seen Cast Type (test code = 57592-5) Crystals (test code = 5783-6) Crystal Type (test code = 5782-8) Mucus Threads (test code = 8247-9) Bacteria (test code = 5769-5) None seen None seen/Few Yeast (test code = 5822-2) Trichomonas (test code = 5813-1) Comment (test code = 32869-6) [facility] Description: Microscopic Vnnmmnmkxjr3546-51-10 04:44:00 Test Item Value Reference Range Interpretation Comments WBC (test code = 5821-4) None seen 0-5 RBC (test code = 87643-8) None seen 0-2 Epithelial Cells (non renal) (test None seen 0-10 code = 5787-7) Epithelial Cells (renal) (test code = 89182-9) Casts (test code = 34922-8) None seen None seen Cast Type (test code = 50497-4) Crystals (test code = 5783-6) Crystal Type (test code = 5782-8) Mucus Threads (test code = 8247-9) Bacteria (test code = 5769-5) None seen None seen/Few Yeast (test code = 5822-2) Trichomonas (test code = 5813-1) Comment (test code = 09837-8) [facility] Description: Microscopic Ldoxzlbasfu9380-20-59 04:44:00 Test Item Value Reference Range Interpretation Comments WBC (test code = 5821-4) None seen 0-5 RBC (test code = 28993-4) None seen 0-2 Epithelial Cells (non renal) (test None seen 0-10 code = 5787-7) Epithelial Cells (renal) (test code = 35631-7) Casts (test code = 90236-0) None seen None seen Cast Type (test code = 34897-5) Crystals (test code = 5783-6) Crystal Type (test code = 5782-8) Mucus Threads (test code = 8247-9) Bacteria (test code = 5769-5) None seen None seen/Few Yeast (test code = 5822-2) Trichomonas (test code = 5813-1) Comment (test code = 00094-0) [facility] Description: Microscopic Reaopzrasey2270-90-18 04:44:00 Test Item Value Reference Range Interpretation Comments WBC (test code = 5821-4) None seen 0-5 RBC (test code = 40376-0) None seen 0-2 Epithelial Cells (non renal) (test None seen 0-10 code = 5787-7) Epithelial Cells (renal) (test code = 52895-4) Casts (test code = 30315-0) None seen None seen Cast Type (test code = 50687-3) Crystals (test code = 5783-6) Crystal Type (test code = 5782-8) Mucus Threads (test code = 8247-9) Bacteria (test code = 5769-5) None seen None seen/Few Yeast (test code = 5822-2) Trichomonas (test code = 5813-1) Comment (test code = 84432-7) [facility] Description: Microscopic Brvzltjasna3589-38-87 04:44:00 Test Item Value Reference Range Interpretation Comments WBC (test code = 5821-4) None seen 0-5 RBC (test code = 15118-9) None seen 0-2 Epithelial Cells (non renal) (test None seen 0-10 code = 5787-7) Epithelial Cells (renal) (test code = 24181-4) Casts (test code = 69840-9) None seen None seen Cast Type (test code = 64519-9) Crystals (test code = 5783-6) Crystal Type (test code = 5782-8) Mucus Threads (test code = 8247-9) Bacteria (test code = 5769-5) None seen None seen/Few Yeast (test code = 5822-2) Trichomonas (test code = 5813-1) Comment (test code = 51400-3) [facility] Description: Microscopic Rhuvdgycebp0373-05-70 04:44:00 Test Item Value Reference Range Interpretation Comments WBC (test code = 5821-4) None seen 0-5 RBC (test code = 90277-2) None seen 0-2 Epithelial Cells (non renal) (test None seen 0-10 code = 5787-7) Epithelial Cells (renal) (test code = 24809-5) Casts (test code = 74566-6) None seen None seen Cast Type (test code = 79936-0) Crystals (test code = 5783-6) Crystal Type (test code = 5782-8) Mucus Threads (test code = 8247-9) Bacteria (test code = 5769-5) None seen None seen/Few Yeast (test code = 5822-2) Trichomonas (test code = 5813-1) Comment (test code = 11284-3) [facility] Description: Microscopic Uqgpwlppfwt7365-51-59 04:44:00 Test Item Value Reference Range Interpretation Comments WBC (test code = 5821-4) None seen 0-5 RBC (test code = 95887-8) None seen 0-2 Epithelial Cells (non renal) (test None seen 0-10 code = 5787-7) Epithelial Cells (renal) (test code = 79540-4) Casts (test code = 66898-7) None seen None seen Cast Type (test code = 99576-9) Crystals (test code = 5783-6) Crystal Type (test code = 5782-8) Mucus Threads (test code = 8247-9) Bacteria (test code = 5769-5) None seen None seen/Few Yeast (test code = 5822-2) Trichomonas (test code = 5813-1) Comment (test code = 28134-5) [facility] Description: Microscopic Ujodpfvxpqm4266-45-12 04:44:00 Test Item Value Reference Range Interpretation Comments WBC (test code = 5821-4) None seen 0-5 RBC (test code = 63419-3) None seen 0-2 Epithelial Cells (non renal) (test None seen 0-10 code = 5787-7) Epithelial Cells (renal) (test code = 20622-9) Casts (test code = 72873-6) None seen None seen Cast Type (test code = 62826-9) Crystals (test code = 5783-6) Crystal Type (test code = 5782-8) Mucus Threads (test code = 8247-9) Bacteria (test code = 5769-5) None seen None seen/Few Yeast (test code = 5822-2) Trichomonas (test code = 5813-1) Comment (test code = 05602-0) [facility] Description: Microscopic Aoruxbvcznn6387-48-36 04:44:00 Test Item Value Reference Range Interpretation Comments WBC (test code = 5821-4) None seen 0-5 RBC (test code = 20439-7) None seen 0-2 Epithelial Cells (non renal) (test None seen 0-10 code = 5787-7) Epithelial Cells (renal) (test code = 45109-6) Casts (test code = 75893-4) None seen None seen Cast Type (test code = 83520-9) Crystals (test code = 5783-6) Crystal Type (test code = 5782-8) Mucus Threads (test code = 8247-9) Bacteria (test code = 5769-5) None seen None seen/Few Yeast (test code = 5822-2) Trichomonas (test code = 5813-1) Comment (test code = 62627-1) [facility] Description: Microscopic Wrbvfqryvgq7601-36-73 04:44:00 Test Item Value Reference Range Interpretation Comments WBC (test code = 5821-4) None seen 0-5 RBC (test code = 60145-2) None seen 0-2 Epithelial Cells (non renal) (test None seen 0-10 code = 5787-7) Epithelial Cells (renal) (test code = 73223-7) Casts (test code = 64618-4) None seen None seen Cast Type (test code = 68654-8) Crystals (test code = 5783-6) Crystal Type (test code = 5782-8) Mucus Threads (test code = 8247-9) Bacteria (test code = 5769-5) None seen None seen/Few Yeast (test code = 5822-2) Trichomonas (test code = 5813-1) Comment (test code = 27618-9) [facility] Description: Microscopic Vvgdgrrxrac9923-52-99 04:44:00 Test Item Value Reference Range Interpretation Comments WBC (test code = 5821-4) None seen 0-5 RBC (test code = 74101-5) None seen 0-2 Epithelial Cells (non renal) (test None seen 0-10 code = 5787-7) Epithelial Cells (renal) (test code = 76225-7) Casts (test code = 29504-0) None seen None seen Cast Type (test code = 36211-1) Crystals (test code = 5783-6) Crystal Type (test code = 5782-8) Mucus Threads (test code = 8247-9) Bacteria (test code = 5769-5) None seen None seen/Few Yeast (test code = 5822-2) Trichomonas (test code = 5813-1) Comment (test code = 53252-9) [facility] Description: Microscopic Kfaatyfalnh7243-70-84 04:44:00 Test Item Value Reference Range Interpretation Comments WBC (test code = 5821-4) None seen 0-5 RBC (test code = 15496-6) None seen 0-2 Epithelial Cells (non renal) (test None seen 0-10 code = 5787-7) Epithelial Cells (renal) (test code = 55741-5) Casts (test code = 95645-2) None seen None seen Cast Type (test code = 40700-1) Crystals (test code = 5783-6) Crystal Type (test code = 5782-8) Mucus Threads (test code = 8247-9) Bacteria (test code = 5769-5) None seen None seen/Few Yeast (test code = 5822-2) Trichomonas (test code = 5813-1) Comment (test code = 76629-5) [facility] Description: Microscopic Weneuytwbyo9097-49-37 04:44:00 Test Item Value Reference Range Interpretation Comments WBC (test code = 5821-4) None seen 0-5 RBC (test code = 98490-3) None seen 0-2 Epithelial Cells (non renal) (test None seen 0-10 code = 5787-7) Epithelial Cells (renal) (test code = 25171-7) Casts (test code = 69956-1) None seen None seen Cast Type (test code = 30940-7) Crystals (test code = 5783-6) Crystal Type (test code = 5782-8) Mucus Threads (test code = 8247-9) Bacteria (test code = 5769-5) None seen None seen/Few Yeast (test code = 5822-2) Trichomonas (test code = 5813-1) Comment (test code = 91083-0) [facility] Description: Microscopic Quwvanfjehp8785-98-36 04:44:00 Test Item Value Reference Range Interpretation Comments WBC (test code = 5821-4) None seen 0-5 RBC (test code = 66341-1) None seen 0-2 Epithelial Cells (non renal) (test None seen 0-10 code = 5787-7) Epithelial Cells (renal) (test code = 51049-9) Casts (test code = 91420-6) None seen None seen Cast Type (test code = 86263-0) Crystals (test code = 5783-6) Crystal Type (test code = 5782-8) Mucus Threads (test code = 8247-9) Bacteria (test code = 5769-5) None seen None seen/Few Yeast (test code = 5822-2) Trichomonas (test code = 5813-1) Comment (test code = 25179-8) [facility] Description: Urinalysis, Rfgwmbrk4031-25-06 04:43:00 Test Item Value Reference Range Interpretation Comments Specific Garrett (test 1.012 1.005-1.030 code = 2965-2) pH (test code = 5.5 5.0-7.5 5803-2) Urine-Color (test code Yellow Yellow = 5778-6) Appearance (test code Clear Clear = 5767-9) WBC Esterase (test Negative Negative code = 5799-2) Protein (test code = 4+ Negative/Trace A 09894-6) Glucose (test code = Trace Negative A 2349-9) Ketones (test code = Negative Negative 2514-8) Occult Blood (test Trace Negative A code = 5794-3) Bilirubin (test code = Negative Negative 5770-3) Urobilinogen,Semi-Qn 0.2 mg/dL 0.2-1.0 (test code = 74549-2) Nitrite, Urine (test Negative Negative code = 5802-4) Microscopic See below: Microscopic was Examination (test code indic atecatrachito and was = 26354-5) performed.

P erformed by:
[facility] ([place])

[facility] Description: Urinalysis, Rcaumkyt6894-71-56 04:43:00 Test Item Value Reference Range Interpretation Comments Specific Garrett (test 1.012 1.005-1.030 code = 2965-2) pH (test code = 5.5 5.0-7.5 5803-2) Urine-Color (test code Yellow Yellow = 5778-6) Appearance (test code Clear Clear = 5767-9) WBC Esterase (test Negative Negative code = 5799-2) Protein (test code = 4+ Negative/Trace A 08327-9) Glucose (test code = Trace Negative A 2349-9) Ketones (test code = Negative Negative 2514-8) Occult Blood (test Trace Negative A code = 5794-3) Bilirubin (test code = Negative Negative 5770-3) Urobilinogen,Semi-Qn 0.2 mg/dL 0.2-1.0 (test code = 05803-4) Nitrite, Urine (test Negative Negative code = 5802-4) Microscopic See below: Microscopic was Examination (test code indic ated and was = 92468-8) performed.

P erformed by:
Vino Volo ()

[facility] Description: Urinalysis, Zdpnuttw4521-92-46 04:43:00 Test Item Value Reference Range Interpretation Comments Specific Garrett (test 1.012 1.005-1.030 code = 2965-2) pH (test code = 5.5 5.0-7.5 5803-2) Urine-Color (test code Yellow Yellow = 5778-6) Appearance (test code Clear Clear = 5767-9) WBC Esterase (test Negative Negative code = 5799-2) Protein (test code = 4+ Negative/Trace A 76190-8) Glucose (test code = Trace Negative A 2349-9) Ketones (test code = Negative Negative 2514-8) Occult Blood (test Trace Negative A code = 5794-3) Bilirubin (test code = Negative Negative 5770-3) Urobilinogen,Semi-Qn 0.2 mg/dL 0.2-1.0 (test code = 37715-1) Nitrite, Urine (test Negative Negative code = 5802-4) Microscopic See below: Microscopic was Examination (test code indic ated and was = 17989-7) performed.

P erformed by:
Vino Volo ()

[facility] Description: Urinalysis, Dpkmbhtt3500-64-19 04:43:00 Test Item Value Reference Range Interpretation Comments Specific Garrett (test 1.012 1.005-1.030 code = 2965-2) pH (test code = 5.5 5.0-7.5 5803-2) Urine-Color (test code Yellow Yellow = 5778-6) Appearance (test code Clear Clear = 5767-9) WBC Esterase (test Negative Negative code = 5799-2) Protein (test code = 4+ Negative/Trace A 57566-2) Glucose (test code = Trace Negative A 2349-9) Ketones (test code = Negative Negative 2514-8) Occult Blood (test Trace Negative A code = 5794-3) Bilirubin (test code = Negative Negative 5770-3) Urobilinogen,Semi-Qn 0.2 mg/dL 0.2-1.0 (test code = 76764-2) Nitrite, Urine (test Negative Negative code = 5802-4) Microscopic See below: Microscopic was Examination (test code indic ated and was = 15291-5) performed.

P erformed by:
[facility] ()

[facility] Description: Urinalysis, [id number] 04:43:00 Test Item Value Reference Range Interpretation Comments Specific Garrett (test 1.012 1.005-1.030 code = 2965-2) pH (test code = 5.5 5.0-7.5 5803-2) Urine-Color (test code Yellow Yellow = 5778-6) Appearance (test code Clear Clear = 5767-9) WBC Esterase (test Negative Negative code = 5799-2) Protein (test code = 4+ Negative/Trace A 92246-6) Glucose (test code = Trace Negative A 2349-9) Ketones (test code = Negative Negative 2514-8) Occult Blood (test Trace Negative A code = 5794-3) Bilirubin (test code = Negative Negative 5770-3) Urobilinogen,Semi-Qn 0.2 mg/dL 0.2-1.0 (test code = 39361-2) Nitrite, Urine (test Negative Negative code = 5802-4) Microscopic See below: Microscopic was Examination (test code indic ated and was = 98571-5) performed.

P erformed by:
[facility] ()

[facility] Description: Urinalysis, [id number] 04:43:00 Test Item Value Reference Range Interpretation Comments Specific Garrett (test 1.012 1.005-1.030 code = 2965-2) pH (test code = 5.5 5.0-7.5 5803-2) Urine-Color (test code Yellow Yellow = 5778-6) Appearance (test code Clear Clear = 5767-9) WBC Esterase (test Negative Negative code = 5799-2) Protein (test code = 4+ Negative/Trace A 13124-0) Glucose (test code = Trace Negative A 2349-9) Ketones (test code = Negative Negative 2514-8) Occult Blood (test Trace Negative A code = 5794-3) Bilirubin (test code = Negative Negative 5770-3) Urobilinogen,Semi-Qn 0.2 mg/dL 0.2-1.0 (test code = 96952-6) Nitrite, Urine (test Negative Negative code = 5802-4) Microscopic See below: Microscopic was Examination (test code indic ated and was = 74348-0) performed.

P erformed by:
[facility] ()

[facility] Description: Urinalysis, Uexajvhr8746-21-13 04:43:00 Test Item Value Reference Range Interpretation Comments Specific Garrett (test 1.012 1.005-1.030 code = 2965-2) pH (test code = 5.5 5.0-7.5 5803-2) Urine-Color (test code Yellow Yellow = 5778-6) Appearance (test code Clear Clear = 5767-9) WBC Esterase (test Negative Negative code = 5799-2) Protein (test code = 4+ Negative/Trace A 28492-1) Glucose (test code = Trace Negative A 2349-9) Ketones (test code = Negative Negative 2514-8) Occult Blood (test Trace Negative A code = 5794-3) Bilirubin (test code = Negative Negative 5770-3) Urobilinogen,Semi-Qn 0.2 mg/dL 0.2-1.0 (test code = 03688-1) Nitrite, Urine (test Negative Negative code = 5802-4) Microscopic See below: Microscopic was Examination (test code indic ated and was = 74347-9) performed.

P erformed by:
[facility] ()

[facility] Description: Urinalysis, [id number] 04:43:00 Test Item Value Reference Range Interpretation Comments Specific Garrett (test 1.012 1.005-1.030 code = 2965-2) pH (test code = 5.5 5.0-7.5 5803-2) Urine-Color (test code Yellow Yellow = 5778-6) Appearance (test code Clear Clear = 5767-9) WBC Esterase (test Negative Negative code = 5799-2) Protein (test code = 4+ Negative/Trace A 38358-2) Glucose (test code = Trace Negative A 2349-9) Ketones (test code = Negative Negative 2514-8) Occult Blood (test Trace Negative A code = 5794-3) Bilirubin (test code = Negative Negative 5770-3) Urobilinogen,Semi-Qn 0.2 mg/dL 0.2-1.0 (test code = 10735-2) Nitrite, Urine (test Negative Negative code = 5802-4) Microscopic See below: Microscopic was Examination (test code indic atecatrachito and was = 16788-9) performed.

P erformed by:
[facility] ()

[facility] Description: Urinalysis, [id number] 04:43:00 Test Item Value Reference Range Interpretation Comments Specific Garrett (test 1.012 1.005-1.030 code = 2965-2) pH (test code = 5.5 5.0-7.5 5803-2) Urine-Color (test code Yellow Yellow = 5778-6) Appearance (test code Clear Clear = 5767-9) WBC Esterase (test Negative Negative code = 5799-2) Protein (test code = 4+ Negative/Trace A 96804-5) Glucose (test code = Trace Negative A 2349-9) Ketones (test code = Negative Negative 2514-8) Occult Blood (test Trace Negative A code = 5794-3) Bilirubin (test code = Negative Negative 5770-3) Urobilinogen,Semi-Qn 0.2 mg/dL 0.2-1.0 (test code = 51968-4) Nitrite, Urine (test Negative Negative code = 5802-4) Microscopic See below: Microscopic was Examination (test code indic ated and was = 82913-6) performed.

P erformed by:
[facility] ()

[facility] Description: Urinalysis, [id number] 04:43:00 Test Item Value Reference Range Interpretation Comments Specific Garrett (test 1.012 1.005-1.030 code = 2965-2) pH (test code = 5.5 5.0-7.5 5803-2) Urine-Color (test code Yellow Yellow = 5778-6) Appearance (test code Clear Clear = 5767-9) WBC Esterase (test Negative Negative code = 5799-2) Protein (test code = 4+ Negative/Trace A 63184-3) Glucose (test code = Trace Negative A 2349-9) Ketones (test code = Negative Negative 2514-8) Occult Blood (test Trace Negative A code = 5794-3) Bilirubin (test code = Negative Negative 5770-3) Urobilinogen,Semi-Qn 0.2 mg/dL 0.2-1.0 (test code = 38303-0) Nitrite, Urine (test Negative Negative code = 5802-4) Microscopic See below: Microscopic was Examination (test code indic ated and was = 81113-6) performed.

P erformed by:
Offerial Kaur ()

[facility]: Urinalysis, [id number] 04:43:00 Test Item Value Reference Range Interpretation Comments Specific Garrett (test 1.012 1.005-1.030 code = 2965-2) pH (test code = 5.5 5.0-7.5 5803-2) Urine-Color (test code Yellow Yellow = 5778-6) Appearance (test code Clear Clear = 5767-9) WBC Esterase (test Negative Negative code = 5799-2) Protein (test code = 4+ Negative/Trace A 30303-0) Glucose (test code = Trace Negative A 2349-9) Ketones (test code = Negative Negative 2514-8) Occult Blood (test Trace Negative A code = 5794-3) Bilirubin (test code = Negative Negative 5770-3) Urobilinogen,Semi-Qn 0.2 mg/dL 0.2-1.0 (test code = 17715-4) Nitrite, Urine (test Negative Negative code = 5802-4) Microscopic See below: Microscopic was Examination (test code indic ated and was = 23434-6) performed.

P erformed by:
[employer] ()

[facility] Description: Urinalysis, [id number] 04:43:00 Test Item Value Reference Range Interpretation Comments Specific Garrett (test 1.012 1.005-1.030 code = 2965-2) pH (test code = 5.5 5.0-7.5 5803-2) Urine-Color (test code Yellow Yellow = 5778-6) Appearance (test code Clear Clear = 5767-9) WBC Esterase (test Negative Negative code = 5799-2) Protein (test code = 4+ Negative/Trace A 87750-5) Glucose (test code = Trace Negative A 2349-9) Ketones (test code = Negative Negative 2514-8) Occult Blood (test Trace Negative A code = 5794-3) Bilirubin (test code = Negative Negative 5770-3) Urobilinogen,Semi-Qn 0.2 mg/dL 0.2-1.0 (test code = 25930-3) Nitrite, Urine (test Negative Negative code = 5802-4) Microscopic See below: Microscopic was Examination (test code indic ated and was = 34973-0) performed.

P erformed by:
Vino Volo ()

[facility] Description: Urinalysis, [id number] 04:43:00 Test Item Value Reference Range Interpretation Comments Specific Garrett (test 1.012 1.005-1.030 code = 2965-2) pH (test code = 5.5 5.0-7.5 5803-2) Urine-Color (test code Yellow Yellow = 5778-6) Appearance (test code Clear Clear = 5767-9) WBC Esterase (test Negative Negative code = 5799-2) Protein (test code = 4+ Negative/Trace A 78389-3) Glucose (test code = Trace Negative A 2349-9) Ketones (test code = Negative Negative 2514-8) Occult Blood (test Trace Negative A code = 5794-3) Bilirubin (test code = Negative Negative 5770-3) Urobilinogen,Semi-Qn 0.2 mg/dL 0.2-1.0 (test code = 03718-4) Nitrite, Urine (test Negative Negative code = 5802-4) Microscopic See below: Microscopic was Examination (test code indic ated and was = 98013-7) performed.

P erformed by:
[facility] ()

[facility] Description: Urinalysis, [id number] 04:43:00 Test Item Value Reference Range Interpretation Comments Specific Garrett (test 1.012 1.005-1.030 code = 2965-2) pH (test code = 5.5 5.0-7.5 5803-2) Urine-Color (test code Yellow Yellow = 5778-6) Appearance (test code Clear Clear = 5767-9) WBC Esterase (test Negative Negative code = 5799-2) Protein (test code = 4+ Negative/Trace A 23737-2) Glucose (test code = Trace Negative A 2349-9) Ketones (test code = Negative Negative 2514-8) Occult Blood (test Trace Negative A code = 5794-3) Bilirubin (test code = Negative Negative 5770-3) Urobilinogen,Semi-Qn 0.2 mg/dL 0.2-1.0 (test code = 06710-3) Nitrite, Urine (test Negative Negative code = 5802-4) Microscopic See below: Microscopic was Examination (test code indic ated and was = 09778-3) performed.

P erformed by:
[facility] ()

[facility]: Urinalysis, [id number] 04:43:00 Test Item Value Reference Range Interpretation Comments Specific Garrett (test 1.012 1.005-1.030 code = 2965-2) pH (test code = 5.5 5.0-7.5 5803-2) Urine-Color (test code Yellow Yellow = 5778-6) Appearance (test code Clear Clear = 5767-9) WBC Esterase (test Negative Negative code = 5799-2) Protein (test code = 4+ Negative/Trace A 75391-4) Glucose (test code = Trace Negative A 2349-9) Ketones (test code = Negative Negative 2514-8) Occult Blood (test Trace Negative A code = 5794-3) Bilirubin (test code = Negative Negative 5770-3) Urobilinogen,Semi-Qn 0.2 mg/dL 0.2-1.0 (test code = 56572-2) Nitrite, Urine (test Negative Negative code = 5802-4) Microscopic See below: Microscopic was Examination (test code indic ated and was = 08845-5) performed.

P erformed by:
[facility] ()

[facility] Description: Urinalysis, [id number] 04:43:00 Test Item Value Reference Range Interpretation Comments Specific Garrett (test 1.012 1.005-1.030 code = 2965-2) pH (test code = 5.5 5.0-7.5 5803-2) Urine-Color (test code Yellow Yellow = 5778-6) Appearance (test code Clear Clear = 5767-9) WBC Esterase (test Negative Negative code = 5799-2) Protein (test code = 4+ Negative/Trace A 71191-3) Glucose (test code = Trace Negative A 2349-9) Ketones (test code = Negative Negative 2514-8) Occult Blood (test Trace Negative A code = 5794-3) Bilirubin (test code = Negative Negative 5770-3) Urobilinogen,Semi-Qn 0.2 mg/dL 0.2-1.0 (test code = 20138-9) Nitrite, Urine (test Negative Negative code = 5802-4) Microscopic See below: Microscopic was Examination (test code indic ated and was = 61129-8) performed.

P erformed by:
[facility] ()

[facility] Description: Urinalysis, [id number] 04:43:00 Test Item Value Reference Range Interpretation Comments Specific Garrett (test 1.012 1.005-1.030 code = 2965-2) pH (test code = 5.5 5.0-7.5 5803-2) Urine-Color (test code Yellow Yellow = 5778-6) Appearance (test code Clear Clear = 5767-9) WBC Esterase (test Negative Negative code = 5799-2) Protein (test code = 4+ Negative/Trace A 73837-3) Glucose (test code = Trace Negative A 2349-9) Ketones (test code = Negative Negative 2514-8) Occult Blood (test Trace Negative A code = 5794-3) Bilirubin (test code = Negative Negative 5770-3) Urobilinogen,Semi-Qn 0.2 mg/dL 0.2-1.0 (test code = 10706-5) Nitrite, Urine (test Negative Negative code = 5802-4) Microscopic See below: Microscopic was Examination (test code indic ated and was = 88199-2) performed.

P erformed by:
[facility] ()

[facility] Description: Urinalysis, [id number] 04:43:00 Test Item Value Reference Range Interpretation Comments Specific Garrett (test 1.012 1.005-1.030 code = 2965-2) pH (test code = 5.5 5.0-7.5 5803-2) Urine-Color (test code Yellow Yellow = 5778-6) Appearance (test code Clear Clear = 5767-9) WBC Esterase (test Negative Negative code = 5799-2) Protein (test code = 4+ Negative/Trace A 87571-1) Glucose (test code = Trace Negative A 2349-9) Ketones (test code = Negative Negative 2514-8) Occult Blood (test Trace Negative A code = 5794-3) Bilirubin (test code = Negative Negative 5770-3) Urobilinogen,Semi-Qn 0.2 mg/dL 0.2-1.0 (test code = 50257-5) Nitrite, Urine (test Negative Negative code = 5802-4) Microscopic See below: Microscopic was Examination (test code indic ated and was = 97017-8) performed.

P erformed by:
[facility] ()

[facility] Description: Urinalysis, [id number] 04:43:00 Test Item Value Reference Range Interpretation Comments Specific Garrett (test 1.012 1.005-1.030 code = 2965-2) pH (test code = 5.5 5.0-7.5 5803-2) Urine-Color (test code Yellow Yellow = 5778-6) Appearance (test code Clear Clear = 5767-9) WBC Esterase (test Negative Negative code = 5799-2) Protein (test code = 4+ Negative/Trace A 75028-2) Glucose (test code = Trace Negative A 2349-9) Ketones (test code = Negative Negative 2514-8) Occult Blood (test Trace Negative A code = 5794-3) Bilirubin (test code = Negative Negative 5770-3) Urobilinogen,Semi-Qn 0.2 mg/dL 0.2-1.0 (test code = 79380-4) Nitrite, Urine (test Negative Negative code = 5802-4) Microscopic See below: Microscopic was Examination (test code indic ated and was = 16192-4) performed.

P erformed by:
[employer] ()

[facility] Description: Urinalysis, [id number] 04:43:00 Test Item Value Reference Range Interpretation Comments Specific Garrett (test 1.012 1.005-1.030 code = 2965-2) pH (test code = 5.5 5.0-7.5 5803-2) Urine-Color (test code Yellow Yellow = 5778-6) Appearance (test code Clear Clear = 5767-9) WBC Esterase (test Negative Negative code = 5799-2) Protein (test code = 4+ Negative/Trace A 05868-2) Glucose (test code = Trace Negative A 2349-9) Ketones (test code = Negative Negative 2514-8) Occult Blood (test Trace Negative A code = 5794-3) Bilirubin (test code = Negative Negative 5770-3) Urobilinogen,Semi-Qn 0.2 mg/dL 0.2-1.0 (test code = 53748-2) Nitrite, Urine (test Negative Negative code = 5802-4) Microscopic See below: Microscopic was Examination (test code indic ated and was = 65622-8) performed.

P erformed by:
[facility] [employer] ()

[facility] Description: Urinalysis, [id number] 04:43:00 Test Item Value Reference Range Interpretation Comments Specific Garrett (test 1.012 1.005-1.030 code = 2965-2) pH (test code = 5.5 5.0-7.5 5803-2) Urine-Color (test code Yellow Yellow = 5778-6) Appearance (test code Clear Clear = 5767-9) WBC Esterase (test Negative Negative code = 5799-2) Protein (test code = 4+ Negative/Trace A 78593-4) Glucose (test code = Trace Negative A 2349-9) Ketones (test code = Negative Negative 2514-8) Occult Blood (test Trace Negative A code = 5794-3) Bilirubin (test code = Negative Negative 5770-3) Urobilinogen,Semi-Qn 0.2 mg/dL 0.2-1.0 (test code = 67815-8) Nitrite, Urine (test Negative Negative code = 5802-4) Microscopic See below: Microscopic was Examination (test code indic ated and was = 41653-2) performed.

P erformed by:
[facility] [employer] ()

[facility]: Urinalysis, [id number] 04:43:00 Test Item Value Reference Range Interpretation Comments Specific Garrett (test 1.012 1.005-1.030 code = 2965-2) pH (test code = 5.5 5.0-7.5 5803-2) Urine-Color (test code Yellow Yellow = 5778-6) Appearance (test code Clear Clear = 5767-9) WBC Esterase (test Negative Negative code = 5799-2) Protein (test code = 4+ Negative/Trace A 50188-1) Glucose (test code = Trace Negative A 2349-9) Ketones (test code = Negative Negative 2514-8) Occult Blood (test Trace Negative A code = 5794-3) Bilirubin (test code = Negative Negative 5770-3) Urobilinogen,Semi-Qn 0.2 mg/dL 0.2-1.0 (test code = 47584-4) Nitrite, Urine (test Negative Negative code = 5802-4) Microscopic See below: Microscopic was Examination (test code indic ated and was = 48290-3) performed.

P erformed by:
[facility] ()

[facility] Description: Urinalysis, [id number] 04:43:00 Microscopic [facility] Description: Urinalysis, Complete 2020-10-30 04:43:00Microscopic [facility] Description: Urinalysis, [id number] 04:43:00Microscopic [facility] Description: Urinalysis, [id number] 04:43:00Microscopic Examination [facility] Description: Urinalysis, [id number] 04:43:00 Microscopic [facility] Description: Urinalysis, Complete 2020-10-30 04:43:00Microscopic [facility] Description: Urinalysis, [id number] 04:43:00Microscopic [facility] Description: Urinalysis, [id number] 04:43:00Microscopic Examination [facility] Description: Urinalysis, [id number] 04:43:00 Microscopic [facility] Description: Urinalysis, Complete 2020-10-30 04:43:00Microscopic [facility] Description: Urinalysis, [id number] 04:43:00Microscopic [facility] Description: Urinalysis, [id number] 04:43:00Microscopic Examination [facility] Description: Urinalysis, [id number] 04:43:00 Microscopic [facility] Description: Urinalysis, Complete 2020-10-30 04:43:00Microscopic [facility] Description: Urinalysis, [id number] 04:43:00Microscopic [facility] Description: Urinalysis, [id number] 04:43:00Microscopic Examination [facility] Description: Urinalysis, [id number] 04:43:00 Microscopic [facility] Description: Urinalysis, Complete 2020-10-30 04:43:00Microscopic [facility] Description: Urinalysis, [id number] 04:43:00Microscopic [facility] Description: Urinalysis, [id number] 04:43:00Microscopic Examination [facility] Description: Urinalysis, [id number] 04:43:00 Microscopic [facility] Description: Urinalysis, Complete 2020-10-30 04:43:00Microscopic [facility] Description: 25- hydroxyvitamin D3 [Mass/volume] in Serum or [id number] 04:26:00 Test Item Value Reference Range Interpretation Comments Vitamin D, 12.0 ng/mL 30.0-100.0 L Vitamin D defic iency has 25-Hydroxy (test been define d by the code = 09000-4) [place] and an Endocrine So ciety practice guidel ine as alevel of serum 25-OH vitamin D less than 20 ng/mL (1,2).The Endocrine Society went on to further define vitamin Dinsufficiency as a level between 21 and 29 ng/mL (2).1. IOM (Ins titute of Medicine). 2010 . Dietary reference int akes for calcium and D. [place]: [employer] .2. Dileep MF, Ela NC, Chichi-Augie i EMERSON, et al. Evaluatio n, treatment, and prevention of vitamin D deficiency: an Endocrine Society clinica l practice guideline. [place]. 2010; 96(7):1911-30.< br/>
P erformed by:
[facility] ([place])

[facility] Description: 25-hydroxyvitamin D3 [Mass/volume] in Serum or [id number] 04:26:00 Test Item Value Reference Range Interpretation Comments Vitamin D, 12.0 ng/mL 30.0-100.0 L Vitamin D defic iency has 25-Hydroxy (test been define d by the code = 90674-5) [place] [facility] [place] and an Endocrine So [facility] practice guidel ine as alevel of serum 25-OH vitamin D less than 20 ng/mL (1,2).The Endocrine Society went on to further define vitamin Dinsufficiency as a level between 21 and 29 ng/mL (2).1. IOM (Ins titute of Medicine). 2010 . Dietary reference int akes for calcium and D. [place]: [employer] .2. Ela Oliveros, Stephane EMERSON, et al. Evaluatio n, treatment, and prevention of vitamin D deficiency: an Endocrine Society clinica l practice guideline. EM. 2010; 96(7):1911-30.< br/>
P erformed by:
[facility] ([place])

[facility] Description: 25-hydroxyvitamin D3 [Mass/volume] in Serum or [id number] 04:26:00 Test Item Value Reference Range Interpretation Comments Vitamin D, 12.0 ng/mL 30.0-100.0 L Vitamin D defic iency has 25-Hydroxy (test been define d by the code = 62968-4) [place] [facility] [place] and an Endocrine So [facility] practice guidel ine as alevel of serum 25-OH vitamin D less than 20 ng/mL (1,2).The Endocrine Society went on to further define vitamin Dinsufficiency as a level between 21 and 29 ng/mL (2).1. IOM (Ins titute of Medicine). 2010 . Dietary reference int akes for calcium and D. [place]: [employer] .2. Ela Oliveros, Stephane EMERSON, et al. Evaluatio n, treatment, and prevention of vitamin D deficiency: an Endocrine Society clinica l practice guideline. EM. 2010; 96(7):1911-30.< br/>
P erformed by:
[facility] ([place])

[facility] Description: 25-hydroxyvitamin D3 [Mass/volume] in Serum or [id number] 04:26:00 Test Item Value Reference Range Interpretation Comments Vitamin D, 12.0 ng/mL 30.0-100.0 L Vitamin D defic iency has 25-Hydroxy (test been define d by the code = 78319-9) [place] and an Endocrine So [facility] practice guidel ine as alevel of serum 25-OH vitamin D less than 20 ng/mL (1,2).The Endocrine Society went on to further define vitamin Dinsufficiency as a level between 21 and 29 ng/mL (2).1. IOM (Ins titute of Medicine). 2010 . Dietary reference int akes for calcium and D. [place]: [employer] .2. Dileep AREVALO, Ela SANTA, Stehpane EMERSON, et al. Evaluatio n, treatment, and prevention of vitamin D deficiency: an Endocrine Society clinica l practice guideline. [facility]. 2010; 96(7):1911-30.< br/>
P erformed by:
[facility] ([place])

[facility] Description: 25-hydroxyvitamin D3 [Mass/volume] in Serum or [id number] 04:26:00 Test Item Value Reference Range Interpretation Comments Vitamin D, 12.0 ng/mL 30.0-100.0 L Vitamin D defic iency has 25-Hydroxy (test been define d by the code = 63016-4) [place] and an Endocrine So [facility] practice guidel ine as alevel of serum 25-OH vitamin D less than 20 ng/mL (1,2).The Endocrine Society went on to further define vitamin Dinsufficiency as a level between 21 and 29 ng/mL (2).1. IOM (Ins titute of Medicine). 2010 . Dietary reference int akes for calcium and D. [facility]: [employer] .2. Ela Oliveros, Stephane EMERSON, et al. Evaluatio n, treatment, and prevention of vitamin D deficiency: an Endocrine Society clinica l practice guideline. EM. 2010; 96(7):1911-.< br/>
P erformed by:
[facility] ([place])

[facility] Description: 25-hydroxyvitamin D3 [Mass/volume] in Serum or [id number] 04:26:00 Test Item Value Reference Range Interpretation Comments Vitamin D, 12.0 ng/mL 30.0-100.0 L Vitamin D defic iency has 25-Hydroxy (test been define d by the code = 21508-5) [place] and an Endocrine So [facility] practice guidel ine as alevel of serum 25-OH vitamin D less than 20 ng/mL (1,2).The Endocrine Society went on to further define vitamin Dinsufficiency as a level between 21 and 29 ng/mL (2).1. IOM (Ins titute of Medicine). 2010 . Dietary reference int akes for calcium and D. [facility]: [employer] .2. Ela Oliveros, Stephane EMERSON, et al. Evaluatio n, treatment, and prevention of vitamin D deficiency: an Endocrine Society clinica l practice guideline. EM. 2010; 96(7):1911-30.< br/>
P erformed by:
[facility] ([place])

[facility] Description: 25-hydroxyvitamin D3 [Mass/volume] in Serum or [id number] 04:26:00 Test Item Value Reference Range Interpretation Comments Vitamin D, 12.0 ng/mL 30.0-100.0 L Vitamin D defic iency has 25-Hydroxy (test been define d by the code = 87696-9) [place] and an Endocrine So [facility] practice guidel ine as alevel of serum 25-OH vitamin D less than 20 ng/mL (1,2).The Endocrine Society went on to further define vitamin Dinsufficiency as a level between 21 and 29 ng/mL (2).1. IOM (Ins titute of Medicine). 2010 . Dietary reference int akes for calcium and D. [facility]: [employer] .2. Ela Oliveros, Stephane EMERSON, et al. Evaluatio n, treatment, and prevention of vitamin D deficiency: an Endocrine Society clinica l practice guideline. [place] EM. 2010; 96(7):1911-30.< br/>
P erformed by:
[facility] ([place])

[facility] Description: 25-hydroxyvitamin D3 [Mass/volume] in Serum or [id number] 04:26:00 Test Item Value Reference Range Interpretation Comments Vitamin D, 12.0 ng/mL 30.0-100.0 L Vitamin D defic iency has 25-Hydroxy (test been define d by the code = 02600-8) [place] and an Endocrine So [facility] practice guidel ine as alevel of serum 25-OH vitamin D less than 20 ng/mL (1,2).The Endocrine Society went on to further define vitamin Dinsufficiency as a level between 21 and 29 ng/mL (2).1. IOM (Ins titute of Medicine). 2010 . Dietary reference int akes for calcium and D. [facility]: [employer] .2. Ela Oliveros, Stephane EMERSON, et al. Evaluatio n, treatment, and prevention of vitamin D deficiency: an Endocrine Society clinica l practice guideline. [place] EM. 2010; 96(7):1911-30.< br/>
P erformed by:
[facility] ([place])

[facility] Description: 25-hydroxyvitamin D3 [Mass/volume] in Serum or [id number] 04:26:00 Test Item Value Reference Range Interpretation Comments Vitamin D, 12.0 ng/mL 30.0-100.0 L Vitamin D defic iency has 25-Hydroxy (test been define d by the code = 58079-3) [place] and an Endocrine So ciety practice guidel ine as alevel of serum 25-OH vitamin D less than 20 ng/mL (1,2).The Endocrine Society went on to further define vitamin Dinsufficiency as a level between 21 and 29 ng/mL (2).1. IOM (Ins [facility]). 2010 . Dietary reference int akes for calcium and D. [facility]: [employer] .2. Ela Oliveros, Stephane EMERSON, et al. Evaluatio n, treatment, and prevention of vitamin D deficiency: an Endocrine Society clinica l practice guideline. [place] EM. 2010; 96(7):191-.< br/>
P erformed by:
[facility] ([place])

[facility] Description: 25-hydroxyvitamin D3 [Mass/volume] in Serum or [id number] 04:26:00 Test Item Value Reference Range Interpretation Comments Vitamin D, 12.0 ng/mL 30.0-100.0 L Vitamin D defic iency has 25-Hydroxy (test been define d by the code = 59875-3) [place] and an Endocrine So [facility] practice guidel ine as alevel of serum 25-OH vitamin D less than 20 ng/mL (1,2).The Endocrine Society went on to further define vitamin Dinsufficiency as a level between 21 and 29 ng/mL (2).1. IOM (Ins [facility]ute of Medicine). 2010 . Dietary reference int akes for calcium and D. [facility]: [employer] .2. Ela Oliveros, Stephane EMERSON, et al. Evaluatio n, treatment, and prevention of vitamin D deficiency: an Endocrine Society clinica l practice guideline. [place] EM. 2010; 96(7):191-.< br/>
P erformed by:
[facility] ([place])

[facility] Description: 25-hydroxyvitamin D3 [Mass/volume] in Serum or [id number] 04:26:00 Test Item Value Reference Range Interpretation Comments Vitamin D, 12.0 ng/mL 30.0-100.0 L Vitamin D defic iency has 25-Hydroxy (test been define d by the code = 45392-5) [place] and an Endocrine So [facility] practice guidel ine as alevel of serum 25-OH vitamin D less than 20 ng/mL (1,2).The Endocrine Society went on to further define vitamin Dinsufficiency as a level between 21 and 29 ng/mL (2).1. IOM (Ins titute of Medicine). 2010 . Dietary reference int akes for calcium and D. [facility]: [employer] .2. Ela Oliveros, Stephane EMERSON, et al. Evaluatio n, treatment, and prevention of vitamin D deficiency: an Endocrine Society clinica l practice guideline. EM. 2010; 96(7):1911-30.< br/>
P erformed by:
[facility] [facility] ([place])

[facility] Description: 25-hydroxyvitamin D3 [Mass/volume] in Serum or [id number] 04:26:00 Test Item Value Reference Range Interpretation Comments Vitamin D, 12.0 ng/mL 30.0-100.0 L Vitamin D defic iency has 25-Hydroxy (test been define d by the code = 54089-5) [place] and an Endocrine So [facility] practice guidel ine as alevel of serum 25-OH vitamin D less than 20 ng/mL (1,2).The Endocrine Society went on to further define vitamin Dinsufficiency as a level between 21 and 29 ng/mL (2).1. IOM (Ins titute of Medicine). 2010 . Dietary reference int akes for calcium and D. [place]: [employer] .2. Ela Oliveros, Stephane EMERSON, et al. Evaluatio n, treatment, and prevention of vitamin D deficiency: an Endocrine Society clinica l practice guideline. EM. 2010; 96(7):1911-30.< br/>
P erformed by:
[facility] ([place])

[facility] Description: 25-hydroxyvitamin D3 [Mass/volume] in Serum or [id number] 04:26:00 Test Item Value Reference Range Interpretation Comments Vitamin D, 12.0 ng/mL 30.0-100.0 L Vitamin D defic iency has 25-Hydroxy (test been define d by the code = 47610-7) [place] [facility] [place] and an Endocrine So ciety practice guidel ine as alevel of serum 25-OH vitamin D less than 20 ng/mL (1,2).The Endocrine Society went on to further define vitamin Dinsufficiency as a level between 21 and 29 ng/mL (2).1. IOM (Ins titute of Medicine). 2010 . Dietary reference int akes for calcium and D. [place]: [employer] .2. Ela Oliveros, Stephane EMERSON, et al. Evaluatio n, treatment, and prevention of vitamin D deficiency: an Endocrine Society clinica l practice guideline. [place] EM. 2010; 967):1911-30.< br/>
P erformed by:
[facility] ([place])

[facility] Description: 25-hydroxyvitamin D3 [Mass/volume] in Serum or [id number] 04:26:00 Test Item Value Reference Range Interpretation Comments Vitamin D, 12.0 ng/mL 30.0-100.0 L Vitamin D defic iency has 25-Hydroxy (test been define d by the code = 82461-5) [place] [facility] [place] and an Endocrine So [facility] practice guidel ine as alevel of serum 25-OH vitamin D less than 20 ng/mL (1,2).The Endocrine Society went on to further define vitamin Dinsufficiency as a level between 21 and 29 ng/mL (2).1. IOM (Ins titute of Medicine). 2010 . Dietary reference int akes for calcium and D. [place]: [employer] .2. Ela Oliveros, Ch[place]-Augie EMERSON, et al. Evaluatio n, treatment, and prevention of vitamin D deficiency: an Endocrine Society clinica l practice guideline. EM. 2010; 96(7):1911-30.< br/>
P erformed by:
[facility] ([place])

[facility] Description: 25-hydroxyvitamin D3 [Mass/volume] in Serum or Cegkqt2333-27-37 04:26:00 Test Item Value Reference Range Interpretation Comments Vitamin D, 12.0 ng/mL 30.0-100.0 L Vitamin D defic iency has 25-Hydroxy (test been define d by the code = 49968-1) [place] [facility] [place] and an Endocrine [facility] practice guidel ine as alevel of serum 25-OH vitamin D less than 20 ng/mL (1,2).The Endocrine Society went on to further define vitamin Dinsufficiency as a level between 21 and 29 ng/mL (2).1. IOM (Ins titute of Medicine). 2010 . Dietary reference int akes for calcium and D. [place]: [employer] .2. Ela Oliveros, Stephane EMERSON, et al. Evaluatio n, treatment, and prevention of vitamin D deficiency: an Endocrine Society clinica l practice guideline. EM. 2010; 96(7):1911-30.< br/>
P erformed by:
[facility] ([place])

[facility] Description: 25-hydroxyvitamin D3 [Mass/volume] in Serum or Zjxggi8569-72-37 04:26:00 Test Item Value Reference Range Interpretation Comments Vitamin D, 12.0 ng/mL 30.0-100.0 L Vitamin D defic iency has 25-Hydroxy (test been define d by the code = 98143-3) [place] and an Endocrine So [facility] practice guidel ine as alevel of serum 25-OH vitamin D less than 20 ng/mL (1,2).The Endocrine Society went on to further define vitamin Dinsufficiency as a level between 21 and 29 ng/mL (2).1. IOM (Ins titute of Medicine). 2010 . Dietary reference int akes for calcium and D. [place]: [employer] .2. Ela Oliveros, Stephane EMERSON, et al. Evaluatio n, treatment, and prevention of vitamin D deficiency: an Endocrine Society clinica l practice guideline. EM. 2010; 96(7):1911-30.< br/>
P erformed by:
[facility] ([place])

[facility] Description: 25-hydroxyvitamin D3 [Mass/volume] in Serum or [id number] 04:26:00 Test Item Value Reference Range Interpretation Comments Vitamin D, 12.0 ng/mL 30.0-100.0 L Vitamin D defic iency has 25-Hydroxy (test been define d by the code = 51933-3) [place] [facility] [place] and an Endocrine [facility] practice guidel ine as alevel of serum 25-OH vitamin D less than 20 ng/mL (1,2).The Endocrine Society went on to further define vitamin Dinsufficiency as a level between 21 and 29 ng/mL (2).1. IOM (Ins titute of Medicine). 2010 . Dietary reference int akes for calcium and D. [place]: [employer] .2. Dileep AREVALO, Ela SANTA, Stephane EMERSON, et al. Evaluatio n, treatment, and prevention of vitamin D deficiency: an Endocrine Society clinica l practice guideline. [facility]. 2010; 96(7):1911-30.< br/>
P erformed by:
[facility] ([place])

[facility] Description: 25-hydroxyvitamin D3 [Mass/volume] in Serum or [id number] 04:26:00 Test Item Value Reference Range Interpretation Comments Vitamin D, 12.0 ng/mL 30.0-100.0 L Vitamin D defic iency has 25-Hydroxy (test been define d by the code = 93674-5) [place] and an Endocrine So [facility] practice guidel ine as alevel of serum 25-OH vitamin D less than 20 ng/mL (1,2).The Endocrine Society went on to further define vitamin Dinsufficiency as a level between 21 and 29 ng/mL (2).1. IOM (Ins titute of Medicine). 2010 . Dietary reference int akes for calcium and D. [facility]: [employer] .2. Ela Oliveros, Stephane EMERSON, et al. Evaluatio n, treatment, and prevention of vitamin D deficiency: an Endocrine Society clinica l practice guideline. EM. 2010; 96(7):191-30.< br/>
P erformed by:
[facility] ([place])

[facility] Description: 25-hydroxyvitamin D3 [Mass/volume] in Serum or [id number] 04:26:00 Test Item Value Reference Range Interpretation Comments Vitamin D, 12.0 ng/mL 30.0-100.0 L Vitamin D defic iency has 25-Hydroxy (test been define d by the code = 24424-4) [place] [facility] [place] and an Endocrine So [facility] practice guidel ine as alevel of serum 25-OH vitamin D less than 20 ng/mL (1,2).The Endocrine Society went on to further define vitamin Dinsufficiency as a level between 21 and 29 ng/mL (2).1. IOM (Ins [facility]). 2010 . Dietary reference int akes for calcium and D. [facility]: [employer] .2. Ela Oliveros, Stephane EMERSON, et al. Evaluatio n, treatment, and prevention of vitamin D deficiency: an Endocrine Society clinica l practice guideline. EM. 2010; 96(7):1911-30.< br/>
P erformed by:
[facility] ([place])

[facility] Description: 25-hydroxyvitamin D3 [Mass/volume] in Serum or [id number] 04:26:00 Test Item Value Reference Range Interpretation Comments Vitamin D, 12.0 ng/mL 30.0-100.0 L Vitamin D defic iency has 25-Hydroxy (test been define d by the code = 89144-1) [place] [facility] [place] and an [facility]ocrine [facility] guidel ine as alevel of serum 25-OH vitamin D less than 20 ng/mL (1,2).The Endocrine Society went on to further define vitamin Dinsufficiency as a level between 21 and 29 ng/mL (2).1. IOM (Ins titute of Medicine). 2010 . Dietary reference int akes for calcium and D. [facility]: [employer] .2. Ela Oliveros, Stephane EMERSON, et al. Evaluatio n, treatment, and prevention of vitamin D deficiency: an Endocrine Society clinica l practice guideline. [place] EM. 2010; 96(7):1911-30.< br/>
P erformed by:
[facility] ([place])

[facility] Description: 25-hydroxyvitamin D3 [Mass/volume] in Serum or [id number] 04:26:00 Test Item Value Reference Range Interpretation Comments Vitamin D, 12.0 ng/mL 30.0-100.0 L Vitamin D defic iency has 25-Hydroxy (test been define d by the code = 13835-4) [place] [facility] [place] and an Endocrine So [facility] practice guidel ine as alevel of serum 25-OH vitamin D less than 20 ng/mL (1,2).The Endocrine Society went on to further define vitamin Dinsufficiency as a level between 21 and 29 ng/mL (2).1. IOM (Ins titute of Medicine). 2010 . Dietary reference int akes for calcium and D. [facility]: [employer] .2. Ela Oliveros, Stephane EMERSON, et al. Evaluatio n, treatment, and prevention of vitamin D deficiency: an Endocrine Society clinica l practice guideline. [place] EM. 2010; 96(7):1911-30.< br/>
P erformed by:
[facility] ([place])

[facility] Description: 25-hydroxyvitamin D3 [Mass/volume] in Serum or [id number] 04:26:00 Test Item Value Reference Range Interpretation Comments Vitamin D, 12.0 ng/mL 30.0-100.0 L Vitamin D defic iency has 25-Hydroxy (test been define d by the code = 83235-8) [place] and an Endocrine So ciety practice guidel ine as alevel of serum 25-OH vitamin D less than 20 ng/mL (1,2).The Endocrine Society went on to further define vitamin Dinsufficiency as a level between 21 and 29 ng/mL (2).1. IOM (Ins titute of Medicine). 2010 . Dietary reference int akes for calcium and D. [place]: [employer] .2. Dileep MF, Ela SANTA, Stephane blake EMERSON, et al. Evaluatio n, treatment, and prevention of vitamin D deficiency: an Endocrine Society clinica l practice guideline. [place] EM. 2010; 96(7):1911-30.< br/>
P erformed by:
[facility] ()

[facility] Description: CBC With Differential/Lwwhysti7785-08-27 04:00:00 Test Item Value Reference Range Interpretation [...] (test 1 % Not Estab. code = 71189-6) Immature Grans (Abs) (test code 0.0 x10E3/uL 0.0-0.1 = 31137-2) NRBC (test code = 78847-1) Hematology Comments: (test code = 39081-4) [facility] Description: CBC With Differential/Ksguwiun7890-55-66 04:00:00 Test Item Value Reference Range Interpretation [...] (test 1 % Not Estab. code = 24675-4) Immature Grans (Abs) (test code 0.0 x10E3/uL 0.0-0.1 = 91591-8) NRBC (test code = 05714-8) Hematology Comments: (test code = 76832-0) [facility] Description: CBC With Differential/Keyzjelo7502-55-58 04:00:00 Test Item Value Reference Range Interpretation [...] (test 1 % Not Estab. code = 16684-6) Immature Grans (Abs) (test code 0.0 x10E3/uL 0.0-0.1 = 62132-1) NRBC (test code = 90447-0) Hematology Comments: (test code = 83269-7) [facility] Description: CBC With Differential/Uzevkcma2981-76-40 04:00:00 Test Item Value Reference Range Interpretation [...] (test 1 % Not Estab. code = 20318-4) Immature Grans (Abs) (test code 0.0 x10E3/uL 0.0-0.1 = 27420-7) NRBC (test code = 25853-7) Hematology Comments: (test code = 37398-7) [facility] Description: CBC With Differential/Lwfyqufp4189-90-24 04:00:00 Test Item Value Reference Range Interpretation [...] (test 1 % Not Estab. code = 60008-7) Immature Grans (Abs) (test code 0.0 x10E3/uL 0.0-0.1 = 91636-0) NRBC (test code = 20031-5) Hematology Comments: (test code = 74011-7) [facility] Description: CBC With Differential/Mpbrudcz6847-69-06 04:00:00 Test Item Value Reference Range Interpretation [...] (test 1 % Not Estab. code = 79147-0) Immature Grans (Abs) (test code 0.0 x10E3/uL 0.0-0.1 = 53219-2) NRBC (test code = 76465-7) Hematology Comments: (test code = 53315-2) [facility] Description: CBC With Differential/Evfeyxik8896-57-68 04:00:00 Test Item Value Reference Range Interpretation [...] (test 1 % Not Estab. code = 53365-8) Immature Grans (Abs) (test code 0.0 x10E3/uL 0.0-0.1 = 27689-3) NRBC (test code = 49993-3) Hematology Comments: (test code = 05041-8) [facility] Description: CBC With Differential/Heksspca2951-98-72 04:00:00 Test Item Value Reference Range Interpretation [...] (test 1 % Not Estab. code = 30312-3) Immature Grans (Abs) (test code 0.0 x10E3/uL 0.0-0.1 = 21017-0) NRBC (test code = 50787-5) Hematology Comments: (test code = 26166-7) [facility] Description: CBC With Differential/Gbttrovx9400-72-14 04:00:00 Test Item Value Reference Range Interpretation [...] (test 1 % Not Estab. code = 86194-3) Immature Grans (Abs) (test code 0.0 x10E3/uL 0.0-0.1 = 24670-1) NRBC (test code = 65644-3) Hematology Comments: (test code = 65354-7) [facility] Description: CBC With Differential/Gvlgdxpv9187-44-27 04:00:00 Test Item Value Reference Range Interpretation [...] (test 1 % Not Estab. code = 24280-6) Immature Grans (Abs) (test code 0.0 x10E3/uL 0.0-0.1 = 77962-1) NRBC (test code = 63796-9) Hematology Comments: (test code = 50000-6) [facility] Description: CBC With Differential/Bqsmhnhu2346-77-31 04:00:00 Test Item Value Reference Range Interpretation [...] (test 1 % Not Estab. code = 51105-3) Immature Grans (Abs) (test code 0.0 x10E3/uL 0.0-0.1 = 26161-1) NRBC (test code = 47324-0) Hematology Comments: (test code = 73216-9) [facility] Description: CBC With Differential/Aylexupz8375-41-73 04:00:00 Test Item Value Reference Range Interpretation [...] (test 1 % Not Estab. code = 87216-9) Immature Grans (Abs) (test code 0.0 x10E3/uL 0.0-0.1 = 19286-2) NRBC (test code = 92472-1) Hematology Comments: (test code = 54613-6) [facility] Description: CBC With Differential/Cekaareg0328-41-24 04:00:00 Test Item Value Reference Range Interpretation [...] (test 1 % Not Estab. code = 95416-7) Immature Grans (Abs) (test code 0.0 x10E3/uL 0.0-0.1 = 14332-8) NRBC (test code = 82327-8) Hematology Comments: (test code = 97601-7) [facility] Description: CBC With Differential/Yitaylat1868-87-17 04:00:00 Test Item Value Reference Range Interpretation [...] (test 1 % Not Estab. code = 44337-7) Immature Grans (Abs) (test code 0.0 x10E3/uL 0.0-0.1 = 86553-6) NRBC (test code = 25450-5) Hematology Comments: (test code = 25931-5) [facility] Description: CBC With Differential/Pxcrlsyu5866-03-43 04:00:00 Test Item Value Reference Range Interpretation [...] (test 1 % Not Estab. code = 97724-7) Immature Grans (Abs) (test code 0.0 x10E3/uL 0.0-0.1 = 76628-0) NRBC (test code = 69400-6) Hematology Comments: (test code = 72075-7) [facility] Description: CBC With Differential/Xulyszcr8376-09-01 04:00:00 Test Item Value Reference Range Interpretation [...] (test 1 % Not Estab. code = 82804-2) Immature Grans (Abs) (test code 0.0 x10E3/uL 0.0-0.1 = 65074-2) NRBC (test code = 02610-1) Hematology Comments: (test code = 98193-7) [facility] Description: CBC With Differential/Xrgiofeo9540-57-34 04:00:00 Test Item Value Reference Range Interpretation [...] (test 1 % Not Estab. code = 00704-0) Immature Grans (Abs) (test code 0.0 x10E3/uL 0.0-0.1 = 79516-8) NRBC (test code = 88951-7) Hematology Comments: (test code = 62426-6) [facility] Description: CBC With Differential/Rydlvzdd8324-11-16 04:00:00 Test Item Value Reference Range Interpretation [...] (test 1 % Not Estab. code = 41115-4) Immature Grans (Abs) (test code 0.0 x10E3/uL 0.0-0.1 = 43293-7) NRBC (test code = 03668-6) Hematology Comments: (test code = 36780-8) [facility] Description: CBC With Differential/Oetvybxh2485-47-89 04:00:00 Test Item Value Reference Range Interpretation [...] (test 1 % Not Estab. code = 37516-7) Immature Grans (Abs) (test code 0.0 x10E3/uL 0.0-0.1 = 95293-0) NRBC (test code = 01081-2) Hematology Comments: (test code = 51520-5) [facility] Description: CBC With Differential/Vsfpdczw2704-14-12 04:00:00 Test Item Value Reference Range Interpretation [...] (test 1 % Not Estab. code = 67771-7) Immature Grans (Abs) (test code 0.0 x10E3/uL 0.0-0.1 = 32335-2) NRBC (test code = 32765-0) Hematology Comments: (test code = 30266-9) [facility] Description: CBC With Differential/Spxblhkz3791-94-03 04:00:00 Test Item Value Reference Range Interpretation [...] (test 1 % Not Estab. code = 61643-3) Immature Grans (Abs) (test code 0.0 x10E3/uL 0.0-0.1 = 04842-7) NRBC (test code = 41505-4) Hematology Comments: (test code = 64848-0) [facility] Description: CBC With Differential/Uydrgino2226-44-10 04:00:00 Test Item Value Reference Range Interpretation [...] (test 1 % Not Estab. code = 76108-7) Immature Grans (Abs) (test code 0.0 x10E3/uL 0.0-0.1 = 04260-7) NRBC (test code = 48521-6) Hematology Comments: (test code = 98720-8) [facility] Description: Magnesium [Mass/volume] in Serum or Plasma 2020-10-30 02:31:00 Test Item Value Reference Range Interpretation Comments Magnesium (test code = 06483-9) 1.6 mg/dL 1.6-2.3 [facility] Description: Magnesium [Mass/volume] in Serum or Plasma 2020-10-30 02:31:00 Test Item Value Reference Range Interpretation Comments Magnesium (test code = 07426-2) 1.6 mg/dL 1.6-2.3 [facility] Description: Magnesium [Mass/volume] in Serum or Plasma 2020-10-30 02:31:00 Test Item Value Reference Range Interpretation Comments Magnesium (test code = 91989-0) 1.6 mg/dL 1.6-2.3 [facility] Description: Magnesium [Mass/volume] in Serum or Plasma 2020-10-30 02:31:00 Test Item Value Reference Range Interpretation Comments Magnesium (test code = 04444-8) 1.6 mg/dL 1.6-2.3 [facility] Description: Magnesium [Mass/volume] in Serum or Plasma 2020-10-30 02:31:00 Test Item Value Reference Range Interpretation Comments Magnesium (test code = 08475-3) 1.6 mg/dL 1.6-2.3 [facility] Description: Magnesium [Mass/volume] in Serum or Plasma 2020-10-30 02:31:00 Test Item Value Reference Range Interpretation Comments Magnesium (test code = 68125-8) 1.6 mg/dL 1.6-2.3 [facility] Description: Magnesium [Mass/volume] in Serum or Plasma 2020-10-30 02:31:00 Test Item Value Reference Range Interpretation Comments Magnesium (test code = 85315-3) 1.6 mg/dL 1.6-2.3 [facility] Description: Magnesium [Mass/volume] in Serum or Plasma 2020-10-30 02:31:00 Test Item Value Reference Range Interpretation Comments Magnesium (test code = 82817-4) 1.6 mg/dL 1.6-2.3 [facility] Description: Magnesium [Mass/volume] in Serum or Plasma 2020-10-30 02:31:00 Test Item Value Reference Range Interpretation Comments Magnesium (test code = 05146-0) 1.6 mg/dL 1.6-2.3 [facility] Description: Magnesium [Mass/volume] in Serum or Plasma 2020-10-30 02:31:00 Test Item Value Reference Range Interpretation Comments Magnesium (test code = 30705-7) 1.6 mg/dL 1.6-2.3 [facility] Description: Magnesium [Mass/volume] in Serum or Plasma 2020-10-30 02:31:00 Test Item Value Reference Range Interpretation Comments Magnesium (test code = 40933-6) 1.6 mg/dL 1.6-2.3 [facility] Description: Magnesium [Mass/volume] in Serum or Plasma 2020-10-30 02:31:00 Test Item Value Reference Range Interpretation Comments Magnesium (test code = 88764-4) 1.6 mg/dL 1.6-2.3 [facility] Description: Magnesium [Mass/volume] in Serum or Plasma 2020-10-30 02:31:00 Test Item Value Reference Range Interpretation Comments Magnesium (test code = 63622-3) 1.6 mg/dL 1.6-2.3 [facility] Description: Magnesium [Mass/volume] in Serum or Plasma 2020-10-30 02:31:00 Test Item Value Reference Range Interpretation Comments Magnesium (test code = 75040-5) 1.6 mg/dL 1.6-2.3 [facility] Description: Magnesium [Mass/volume] in Serum or Plasma 2020-10-30 02:31:00 Test Item Value Reference Range Interpretation Comments Magnesium (test code = 39103-4) 1.6 mg/dL 1.6-2.3 [facility] Description: Magnesium [Mass/volume] in Serum or Plasma 2020-10-30 02:31:00 Test Item Value Reference Range Interpretation Comments Magnesium (test code = 68082-2) 1.6 mg/dL 1.6-2.3 [facility] Description: Magnesium [Mass/volume] in Serum or Plasma 2020-10-30 02:31:00 Test Item Value Reference Range Interpretation Comments Magnesium (test code = 49654-2) 1.6 mg/dL 1.6-2.3 [facility] Description: Magnesium [Mass/volume] in Serum or Plasma 2020-10-30 02:31:00 Test Item Value Reference Range Interpretation Comments Magnesium (test code = 84045-4) 1.6 mg/dL 1.6-2.3 [facility]: Magnesium [Mass/volume] in Serum or Plasma 2020-10-30 02:31:00 Test Item Value Reference Range Interpretation Comments Magnesium (test code = 24668-7) 1.6 mg/dL 1.6-2.3 [facility] Description: Magnesium [Mass/volume] in Serum or Plasma 2020-10-30 02:31:00 Test Item Value Reference Range Interpretation Comments Magnesium (test code = 54593-5) 1.6 mg/dL 1.6-2.3 [facility] Description: Magnesium [Mass/volume] in Serum or Plasma 2020-10-30 02:31:00 Test Item Value Reference Range Interpretation Comments Magnesium (test code = 29139-6) 1.6 mg/dL 1.6-2.3 [facility] Description: Magnesium [Mass/volume] in Serum or Plasma 2020-10-30 02:31:00 Test Item Value Reference Range Interpretation Comments Magnesium (test code = 69937-0) 1.6 mg/dL 1.6-2.3 [facility] Description: Lipid Evntn8643-35-30 02:17:00 Test Item Value Reference Range Interpretation Comments Cholesterol, Total (test code = 167 mg/dL 429-332 0353-3) Triglycerides (test code = 2571-8) 60 mg/dL 0-149 HDL Cholesterol (test code = 33 mg/dL >39 L 9) VLDL Cholesterol [place] (test code = 12 mg/dL 5-40 15803-2) LDL Chol Calc (NIH) (test code = 122 mg/dL 0-99 H 24499-1) Comment: (test code = 56976-6) [facility] Description: Lipid Fwcgw2849-35-19 02:17:00 Test Item Value Reference Range Interpretation Comments Cholesterol, Total (test code = 167 mg/dL 266-758 6342-3) Triglycerides (test code = 2571-8) 60 mg/dL 0-149 HDL Cholesterol (test code = 33 mg/dL >39 L 9) VLDL Cholesterol [place] (test code = 12 mg/dL 5-40 59867-4) LDL Chol Calc (NIH) (test code = 122 mg/dL 0-99 H 28517-6) Comment: (test code = 16102-1) [facility] Description: Lipid Opeaz8606-74-93 02:17:00 Test Item Value Reference Range Interpretation Comments Cholesterol, Total (test code = 167 mg/dL 800-328 3230-3) Triglycerides (test code = 2571-8) 60 mg/dL 0-149 HDL Cholesterol (test code = 33 mg/dL >39 L 2085-9) VLDL Cholesterol [place]uka (test code = 12 mg/dL 5-40 11058-8) LDL Chol Calc (NIH) (test code = 122 mg/dL 0-99 H 78614-7) Comment: (test code = 96300-0) [facility] Description: Lipid Drejy7788-94-30 02:17:00 Test Item Value Reference Range Interpretation Comments Cholesterol, Total (test code = 167 mg/dL 125-132 9952-3) Triglycerides (test code = 2571-8) 60 mg/dL 0-149 HDL Cholesterol (test code = 33 mg/dL >39 L 2085-9) VLDL Cholesterol [place]uka (test code = 12 mg/dL 5-40 36864-5) LDL Chol Calc (NIH) (test code = 122 mg/dL 0-99 H 54914-2) Comment: (test code = 39867-1) [facility] Description: Lipid Fqqft2339-11-35 02:17:00 Test Item Value Reference Range Interpretation Comments Cholesterol, Total (test code = 167 mg/dL 243-365 7782-3) Triglycerides (test code = 2571-8) 60 mg/dL 0-149 HDL Cholesterol (test code = 33 mg/dL >39 L 2085-9) VLDL Cholesterol Renuka (test code = 12 mg/dL 5-40 25224-5) LDL Chol Calc (NIH) (test code = 122 mg/dL 0-99 H 08647-2) Comment: (test code = 78042-3) [facility] Description: Lipid Bqbxx5541-43-34 02:17:00 Test Item Value Reference Range Interpretation Comments Cholesterol, Total (test code = 167 mg/dL 562-586 7114-3) Triglycerides (test code = 2571-8) 60 mg/dL 0-149 HDL Cholesterol (test code = 33 mg/dL >39 L 2085-9) VLDL Cholesterol Renuka (test code = 12 mg/dL 5-40 11029-5) LDL Chol Calc (NIH) (test code = 122 mg/dL 0-99 H 68931-2) Comment: (test code = 04023-2) [facility] Description: Lipid Ptbwt2600-54-77 02:17:00 Test Item Value Reference Range Interpretation Comments Cholesterol, Total (test code = 167 mg/dL 031-580 6633-3) Triglycerides (test code = 2571-8) 60 mg/dL 0-149 HDL Cholesterol (test code = 33 mg/dL >39 L 2085-9) VLDL Cholesterol Renuka (test code = 12 mg/dL 5-40 65434-9) LDL Chol Calc (NIH) (test code = 122 mg/dL 0-99 H 81912-0) Comment: (test code = 33495-7) [facility] Description: Lipid Nairk4665-65-57 02:17:00 Test Item Value Reference Range Interpretation Comments Cholesterol, Total (test code = 167 mg/dL 603-039 9443-3) Triglycerides (test code = 2571-8) 60 mg/dL 0-149 HDL Cholesterol (test code = 33 mg/dL >39 L 2085-9) VLDL Cholesterol Renuka (test code = 12 mg/dL 5-40 12468-3) LDL Chol Calc (NIH) (test code = 122 mg/dL 0-99 H 55946-8) Comment: (test code = 61125-6) [facility] Description: Lipid Xpxhv0869-30-55 02:17:00 Test Item Value Reference Range Interpretation Comments Cholesterol, Total (test code = 167 mg/dL 628-328 4050-3) Triglycerides (test code = 2571-8) 60 mg/dL 0-149 HDL Cholesterol (test code = 33 mg/dL >39 L 2085-9) VLDL Cholesterol [place] (test code = 12 mg/dL 5-40 39481-4) LDL Chol Calc (NIH) (test code = 122 mg/dL 0-99 H 44006-0) Comment: (test code = 22551-4) [facility] Description: Lipid Ihtcm1673-55-54 02:17:00 Test Item Value Reference Range Interpretation Comments Cholesterol, Total (test code = 167 mg/dL 019-343 5661-3) Triglycerides (test code = 2571-8) 60 mg/dL 0-149 HDL Cholesterol (test code = 33 mg/dL >39 L 2085-9) VLDL Cholesterol Renuka (test code = 12 mg/dL 5-40 41855-7) LDL Chol Calc (NIH) (test code = 122 mg/dL 0-99 H 26614-8) Comment: (test code = 06762-9) [facility] Description: Lipid [id number] 02:17:00 Test Item Value Reference Range Interpretation Comments Cholesterol, Total (test code = 167 mg/dL 773-703 1869-3) Triglycerides (test code = 2571-8) 60 mg/dL 0-149 HDL Cholesterol (test code = 33 mg/dL >39 L 2085-9) VLDL Cholesterol Renuka (test code = 12 mg/dL 5-40 90542-7) LDL Chol Calc (NIH) (test code = 122 mg/dL 0-99 H 30149-8) Comment: (test code = 96405-8) [facility] Description: Lipid [id number] 02:17:00 Test Item Value Reference Range Interpretation Comments Cholesterol, Total (test code = 167 mg/dL 637-638 3369-3) Triglycerides (test code = 2571-8) 60 mg/dL 0-149 HDL Cholesterol (test code = 33 mg/dL >39 L 2085-9) VLDL Cholesterol Renuka (test code = 12 mg/dL 5-40 40291-0) LDL Chol Calc (NIH) (test code = 122 mg/dL 0-99 H 24851-0) Comment: (test code = 08924-0) [facility] Description: Lipid [id number] 02:17:00 Test Item Value Reference Range Interpretation Comments Cholesterol, Total (test code = 167 mg/dL 649-878 5210-3) Triglycerides (test code = 2571-8) 60 mg/dL 0-149 HDL Cholesterol (test code = 33 mg/dL >39 L 2085-9) VLDL Cholesterol Renuka (test code = 12 mg/dL 5-40 07617-4) LDL Chol Calc (NIH) (test code = 122 mg/dL 0-99 H 80934-6) Comment: (test code = 14814-5) [facility] Description: Lipid [id number] 02:17:00 Test Item Value Reference Range Interpretation Comments Cholesterol, Total (test code = 167 mg/dL 435-947 3867-3) Triglycerides (test code = 2571-8) 60 mg/dL 0-149 HDL Cholesterol (test code = 33 mg/dL >39 L 5-9) VLDL Cholesterol Renuka (test code = 12 mg/dL 5-40 67768-6) LDL Chol Calc (NIH) (test code = 122 mg/dL 0-99 H 64861-8) Comment: (test code = 70113-9) [employer] Description: Lipid [id number] 02:17:00 Test Item Value Reference Range Interpretation Comments Cholesterol, Total (test code = 167 mg/dL 451-186 5824-3) Triglycerides (test code = 2571-8) 60 mg/dL 0-149 HDL Cholesterol (test code = 33 mg/dL >39 L 5-9) VLDL Cholesterol Renuka (test code = 12 mg/dL 5-40 08926-5) LDL Chol Calc (NIH) (test code = 122 mg/dL 0-99 H 38683-3) Comment: (test code = 87886-9) [facility] Description: Lipid [id number] 02:17:00 Test Item Value Reference Range Interpretation Comments Cholesterol, Total (test code = 167 mg/dL 923-681 3125-3) Triglycerides (test code = 2571-8) 60 mg/dL 0-149 HDL Cholesterol (test code = 33 mg/dL >39 L 5-9) VLDL Cholesterol Renuka (test code = 12 mg/dL 5-40 64230-4) LDL Chol Calc (NIH) (test code = 122 mg/dL 0-99 H 85126-7) Comment: (test code = 92723-2) [facility] Description: Lipid [id number] 02:17:00 Test Item Value Reference Range Interpretation Comments Cholesterol, Total (test code = 167 mg/dL 432-470 1486-3) Triglycerides (test code = 2571-8) 60 mg/dL 0-149 HDL Cholesterol (test code = 33 mg/dL >39 L 5-9) VLDL Cholesterol Renuka (test code = 12 mg/dL 5-40 11194-5) LDL Chol Calc (NIH) (test code = 122 mg/dL 0-99 H 94983-2) Comment: (test code = 66724-1) [facility] Description: Lipid [id number] 02:17:00 Test Item Value Reference Range Interpretation Comments Cholesterol, Total (test code = 167 mg/dL 448-401 6997-3) Triglycerides (test code = 2571-8) 60 mg/dL 0-149 HDL Cholesterol (test code = 33 mg/dL >39 L 2085-9) VLDL Cholesterol Renuka (test code = 12 mg/dL 5-40 18106-3) LDL Chol Calc (NIH) (test code = 122 mg/dL 0-99 H 16303-6) Comment: (test code = 08804-7) [facility] Description: Lipid [id number] 02:17:00 Test Item Value Reference Range Interpretation Comments Cholesterol, Total (test code = 167 mg/dL 323-750 6759-3) Triglycerides (test code = 2571-8) 60 mg/dL 0-149 HDL Cholesterol (test code = 33 mg/dL >39 L 2085-9) VLDL Cholesterol Renuka (test code = 12 mg/dL 5-40 91332-3) LDL Chol Calc (NIH) (test code = 122 mg/dL 0-99 H 97527-0) Comment: (test code = 08786-0) [facility] Description: Lipid [id number] 02:17:00 Test Item Value Reference Range Interpretation Comments Cholesterol, Total (test code = 167 mg/dL 164-258 1388-3) Triglycerides (test code = 2571-8) 60 mg/dL 0-149 HDL Cholesterol (test code = 33 mg/dL >39 L 2085-9) VLDL Cholesterol Renuka (test code = 12 mg/dL 5-40 31723-6) LDL Chol Calc (NIH) (test code = 122 mg/dL 0-99 H 65257-5) Comment: (test code = 70098-0) [facility] Description: Lipid [id number] 02:17:00 Test Item Value Reference Range Interpretation Comments Cholesterol, Total (test code = 167 mg/dL 182-375 6475-3) Triglycerides (test code = 2571-8) 60 mg/dL 0-149 HDL Cholesterol (test code = 33 mg/dL >39 L 2085-9) VLDL Cholesterol Renuka (test code = 12 mg/dL 5-40 20943-0) LDL Chol Calc (NIH) (test code = 122 mg/dL 0-99 H 29520-1) Comment: (test code = 75934-7) [facility] Description: Lipid [id number] 02:17:00 Test Item Value Reference Range Interpretation Comments Cholesterol, Total (test code = 167 mg/dL 531-977 9022-3) Triglycerides (test code = 2571-8) 60 mg/dL 0-149 HDL Cholesterol (test code = 33 mg/dL >39 L 2085-9) VLDL Cholesterol Renuka (test code = 12 mg/dL 5-40 56615-0) LDL Chol Calc (NIH) (test code = 122 mg/dL 0-99 H 15944-4) Comment: (test code = 58188-6) [facility] Description: Comp. Metabolic Panel (14)2020-10-30 01:58:00 Test Item Value Reference Range Interpretation Comments Glucose (test code 50 mg/dL 65-99 L = 2345-7) BUN (test code = 52 mg/dL 6-24 H 3094-0) Creatinine (test 2.04 mg/dL 0.76-1.27 H code = 2160-0) eGFR If NonAfricn 38 >59 L Am (test code = mL/min/1.73 62596-5) eGFR If Africn Am 44 >59 L [facility] currently (test code = mL/min/1.73 [place] [address]-5) compliance with the current recommendations of the National Kidney Foundation. [facility] [place] will update re porting as new guidelin es are published from the NKF-ASN Task force.
<br/ >Perfor med by:
[facility] Elberton (HD)

BUN/Creatinine 25 9-20 H Ratio (test code = 3097-3) Sodium (test code = 142 mmol/L 816-215 8793-2) Potassium (test 4.1 mmol/L 3.5-5.2 code = 2823-3) Chloride (test code 103 mmol/L 96-106 = 2075-0) Carbon Dioxide, 27 mmol/L 20-29 Total (test code = 2027-) Calcium (test code 8.8 mg/dL 8.7-10.2 = 10985-6) Protein, Total 6.8 g/dL 6.0-8.5 (test code = 2885-2) Albumin (test code 3.3 g/dL 4.0-5.0 L = 1751-7) Globulin, Total 3.5 g/dL 1.5-4.5 (test code = 92629-9) A/G Ratio (test 0.9 1.2-2.2 L code [...] >59 L Am (test code = mL/min/1.73 59387-2) eGFR If Africn Am 44 >59 L [facility] currently (test code = mL/min/1.73 [place] [address]-1) compliance with the current recommendations of the National Kidney Foundation. [facility] [place] will update re porting as new guidelin es are published from the NKF-ASN Task force.
<br/ >Perfor med by:
Lab [facility] Kaur (HD)

BUN/Creatinine 25 9-20 H Ratio (test code = 3097-3) Sodium (test code = 142 mmol/L 003-820 1263-2) Potassium (test 4.1 mmol/L 3.5-5.2 code = 2823-3) Chloride (test code 103 mmol/L 96-106 = 2075-0) Carbon Dioxide, 27 mmol/L 20-29 Total (test code = 2028-9) Calcium (test code 8.8 mg/dL 8.7-10.2 = 05522-4) Protein, Total 6.8 g/dL 6.0-8.5 (test code = 2885-2) Albumin (test code 3.3 g/dL 4.0-5.0 L = 1751-7) Globulin, Total 3.5 g/dL 1.5-4.5 (test code = 79497-4) A/G Ratio (test 0.9 1.2-2.2 L code = 1759-0) Bilirubin, Total 0.7 mg/dL 0.0-1.2 (test code = 1975-2) Alkaline 140 IU/L 48-121 H Phosphatase (test code = 6768-6) AST (SGOT) (test 14 IU/L 0-40 code = 1920-8) ALT (SGPT) (test 21 IU/L 0-44 code = 1742-6) [facility] Description: Comp. Metabolic Panel (2020-10-30 01:58:00 Test Item Value Reference Range Interpretation Comments Glucose (test code 50 mg/dL 65-99 L = 2345-7) BUN (test code = 52 mg/dL 6-24 H 3094-0) Creatinine (test 2.04 mg/dL 0.76-1.27 H code = 2160-0) eGFR If NonAfricn 38 >59 L Am (test code = mL/min/1.73 53048-7) eGFR If Africn Am 44 >59 L [facility] currently (test code = mL/min/1.73 [place] [address]-3) compliance with the current recommendations of the National Kidney Foundation. [facility] [place] will update re porting as new guidelin es are published from the NKF-ASN Task force.
<br/ >Perfor med by:
[facility] Kaur (HD)

BUN/Creatinine 25 9-20 H Ratio (test code = 3097-3) Sodium (test code = 142 mmol/L 267-159 9817-2) Potassium (test 4.1 mmol/L 3.5-5.2 code = 2823-3) Chloride (test code 103 mmol/L 96-106 = 2075-0) Carbon Dioxide, 27 mmol/L 20-29 Total (test code = 2027-9) Calcium (test code 8.8 mg/dL 8.7-10.2 = 13592-5) Protein, Total 6.8 g/dL 6.0-8.5 (test code = 2885-2) Albumin (test code 3.3 g/dL 4.0-5.0 L = 1751-7) Globulin, Total 3.5 g/dL 1.5-4.5 (test code = 02456-0) A/G Ratio (test 0.9 1.2-2.2 L code [...] >59 L Am (test code = mL/min/1.73 82832-5) eGFR If Africn Am 44 >59 L [facility] currently (test code = mL/min/1.73 [place] [address]-3) compliance with the current recommendations of the National Kidney Foundation. [facility] [place] will update re porting as new guidelin es are published from the NKF-ASN Task force.
<br/ >Perfor med by:
[facility] Kaur (HD)

BUN/Creatinine 25 9-20 H Ratio (test code = 3097-3) Sodium (test code = 142 mmol/L 648-317 4833-2) Potassium (test 4.1 mmol/L 3.5-5.2 code = 2823-3) Chloride (test code 103 mmol/L 96-106 = 2075-0) Carbon Dioxide, 27 mmol/L 20-29 Total (test code = 2027-9) Calcium (test code 8.8 mg/dL 8.7-10.2 = 45446-3) Protein, Total 6.8 g/dL 6.0-8.5 (test code = 2885-2) Albumin (test code 3.3 g/dL 4.0-5.0 L = 1751-7) Globulin, Total 3.5 g/dL 1.5-4.5 (test code = 66186-5) A/G Ratio (test 0.9 1.2-2.2 L code [...] >59 L Am (test code = mL/min/1.73 96390-3) eGFR If Africn Am 44 >59 L [facility] currently (test code = mL/min/1.73 [place] 0[address]-4) compliance with the current recommendations of the National Kidney Foundation. [facility] [place] will update re porting as new guidelin es are published from the NKF-ASN Task force.
<br/ >Perfor med by:
[facility] Kaur (HD)

BUN/Creatinine 25 9-20 H Ratio (test code = 3097-3) Sodium (test code = 142 mmol/L 028-987 8774-2) Potassium (test 4.1 mmol/L 3.5-5.2 code = 2823-3) Chloride (test code 103 mmol/L 96-106 = 2075-0) Carbon Dioxide, 27 mmol/L 20-29 Total (test code = 2027-) Calcium (test code 8.8 mg/dL 8.7-10.2 = 17646-0) Protein, Total 6.8 g/dL 6.0-8.5 (test code = 2885-2) Albumin (test code 3.3 g/dL 4.0-5.0 L = 1751-7) Globulin, Total 3.5 g/dL 1.5-4.5 (test code = 02012-0) A/G Ratio (test 0.9 1.2-2.2 L code [...] >59 L Am (test code = mL/min/1.73 13053-6) eGFR If Africn Am 44 >59 L [facility] currently (test code = mL/min/1.73 [place] [address]-9) compliance with the current recommendations of the National Kidney Foundation. [facility] [place] will update re porting as new guidelin es are published from the NKF-ASN Task force.
<br/ >Perfor med by:
[facility] Kaur (HD)

BUN/Creatinine 25 9-20 H Ratio (test code = 3097-3) Sodium (test code = 142 mmol/L 534-767 7904-2) Potassium (test 4.1 mmol/L 3.5-5.2 code = 2823-3) Chloride (test code 103 mmol/L 96-106 = 2075-0) Carbon Dioxide, 27 mmol/L 20-29 Total (test code = 2027-9) Calcium (test code 8.8 mg/dL 8.7-10.2 = 58668-8) Protein, Total 6.8 g/dL 6.0-8.5 (test code = 2885-2) Albumin (test code 3.3 g/dL 4.0-5.0 L = 1751-7) Globulin, Total 3.5 g/dL 1.5-4.5 (test code = 30190-1) A/G Ratio (test 0.9 1.2-2.2 L code [...] >59 L Am (test code = mL/min/1.73 79507-9) eGFR If Africn Am 44 >59 L [facility] currently (test code = mL/min/1.73 [place] 34023-8) compliance with the current recommendations of the National Kidney Foundation. [facility] [place] will update re porting as new guidelin es are published from the NKF-ASN Task force.
<br/ >Perfor med by:
[facility] Kaur (HD)

BUN/Creatinine 25 9-20 H Ratio (test code = 3097-3) Sodium (test code = 142 mmol/L 302-072 0097-2) Potassium (test 4.1 mmol/L 3.5-5.2 code = 2823-3) Chloride (test code 103 mmol/L 96-106 = 2075-0) Carbon Dioxide, 27 mmol/L 20-29 Total (test code = 2027-) Calcium (test code 8.8 mg/dL 8.7-10.2 = 74795-1) Protein, Total 6.8 g/dL 6.0-8.5 (test code = 2885-2) Albumin (test code 3.3 g/dL 4.0-5.0 L = 1751-7) Globulin, Total 3.5 g/dL 1.5-4.5 (test code = 27481-0) A/G Ratio (test 0.9 1.2-2.2 L code [...] >59 L Am (test code = mL/min/1.73 51079-7) eGFR If Africn Am 44 >59 L [facility] currently (test code = mL/min/1.73 [place] 90051-1) compliance with the current recommendations of the National Kidney Foundation. [facility] [place] will update re porting as new guidelin es are published from the NKF-ASN Task force.
<br/ >Perfor med by:
[facility] [place] (HD)

BUN/Creatinine 25 9-20 H Ratio (test code = 3097-3) Sodium (test code = 142 mmol/L 544-845 0657-2) Potassium (test 4.1 mmol/L 3.5-5.2 code = 2823-3) Chloride (test code 103 mmol/L 96-106 = 2075-0) Carbon Dioxide, 27 mmol/L 20-29 Total (test code = 2027-) Calcium (test code 8.8 mg/dL 8.7-10.2 = 05966-4) Protein, Total 6.8 g/dL 6.0-8.5 (test code = 2885-2) Albumin (test code 3.3 g/dL 4.0-5.0 L = 1751-7) Globulin, Total 3.5 g/dL 1.5-4.5 (test code = 12545-9) A/G Ratio (test 0.9 1.2-2.2 L code [...] >59 L Am (test code = mL/min/1.73 11215-2) eGFR If Africn Am 44 >59 L [facility] currently (test code = mL/min/1.73 [place] 8[address]-0) compliance with the current recommendations of the National Kidney Foundation. [facility] [place] will update re porting as new guidelin es are published from the NKF-ASN Task force.
<br/ >Perfor med by:
[facility] Kaur (HD)

BUN/Creatinine 25 9-20 H Ratio (test code = 3097-3) Sodium (test code = 142 mmol/L 022-198 8746-2) Potassium (test 4.1 mmol/L 3.5-5.2 code = 2823-3) Chloride (test code 103 mmol/L 96-106 = 2075-0) Carbon Dioxide, 27 mmol/L 20-29 Total (test code = 2027-9) Calcium (test code 8.8 mg/dL 8.7-10.2 = 84030-1) Protein, Total 6.8 g/dL 6.0-8.5 (test code = 2885-2) Albumin (test code 3.3 g/dL 4.0-5.0 L = 1751-7) Globulin, Total 3.5 g/dL 1.5-4.5 (test code = 70555-7) A/G Ratio (test 0.9 1.2-2.2 L code [...] >59 L Am (test code = mL/min/1.73 41530-5) eGFR If Africn Am 44 >59 L [facility] currently (test code = mL/min/1.73 [place] 62966-3) compliance with the current recommendations of the National Kidney Foundation. [facility] [place] will update re porting as new guidelin es are published from the NKF-ASN Task force.
<br/ >Perfor med by:
[facility] Kaur (HD)

BUN/Creatinine 25 9-20 H Ratio (test code = 3097-3) Sodium (test code = 142 mmol/L 544-707 5927-2) Potassium (test 4.1 mmol/L 3.5-5.2 code = 2823-3) Chloride (test code 103 mmol/L 96-106 = 2075-0) Carbon Dioxide, 27 mmol/L 20-29 Total (test code = 2027-9) Calcium (test code 8.8 mg/dL 8.7-10.2 = 78857-3) Protein, Total 6.8 g/dL 6.0-8.5 (test code = 2885-2) Albumin (test code 3.3 g/dL 4.0-5.0 L = 1751-7) Globulin, Total 3.5 g/dL 1.5-4.5 (test code = 27123-1) A/G Ratio (test 0.9 1.2-2.2 L code [...] >59 L Am (test code = mL/min/1.73 65733-4) eGFR If Africn Am 44 >59 L [facility] currently (test code = mL/min/1.73 [place] 14640-4) compliance with the current recommendations of the National Kidney Foundation. [facility] [place] will update re porting as new guidelin es are published from the NKF-ASN Task force.
<br/ >Perfor med by:
[facility] Kaur (HD)

BUN/Creatinine 25 9-20 H Ratio (test code = 3097-3) Sodium (test code = 142 mmol/L 885-814 6259-2) Potassium (test 4.1 mmol/L 3.5-5.2 code = 2823-3) Chloride (test code 103 mmol/L 96-106 = 2075-0) Carbon Dioxide, 27 mmol/L 20-29 Total (test code = 2027-) Calcium (test code 8.8 mg/dL 8.7-10.2 = 85622-9) Protein, Total 6.8 g/dL 6.0-8.5 (test code = 2885-2) Albumin (test code 3.3 g/dL 4.0-5.0 L = 1751-7) Globulin, Total 3.5 g/dL 1.5-4.5 (test code = 21578-9) A/G Ratio (test 0.9 1.2-2.2 L code [...] >59 L Am (test code = mL/min/1.73 45416-6) eGFR If Africn Am 44 >59 L [facility] currently (test code = mL/min/1.73 [place] 60438-4) compliance with the current recommendations of the National Kidney Foundation. [facility] [place] will update re porting as new guidelin es are published from the NKF-ASN Task force.
<br/ >Perfor med by:
[facility] [place] Kaur (HD)

BUN/Creatinine 25 9-20 H Ratio (test code = 3097-3) Sodium (test code = 142 mmol/L 393-866 5226-2) Potassium (test 4.1 mmol/L 3.5-5.2 code = 2823-3) Chloride (test code 103 mmol/L 96-106 = 2075-0) Carbon Dioxide, 27 mmol/L 20-29 Total (test code = 2027-) Calcium (test code 8.8 mg/dL 8.7-10.2 = 55471-4) Protein, Total 6.8 g/dL 6.0-8.5 (test code = 2885-2) Albumin (test code 3.3 g/dL 4.0-5.0 L = 1751-7) Globulin, Total 3.5 g/dL 1.5-4.5 (test code = 80132-7) A/G Ratio (test 0.9 1.2-2.2 L code [...] >59 L Am (test code = mL/min/1.73 27856-3) eGFR If Africn Am 44 >59 L [facility] currently (test code = mL/min/1.73 [place] 948[address]-1) compliance with the current recommendations of the National Kidney Foundation. [facility] [place] will update re porting as new guidelin es are published from the NKF-ASN Task force.
<br/ >Perfor med by:
[facility] Kaur (HD)

BUN/Creatinine 25 9-20 H Ratio (test code = 3097-3) Sodium (test code = 142 mmol/L 656-464 5818-2) Potassium (test 4.1 mmol/L 3.5-5.2 code = 2823-3) Chloride (test code 103 mmol/L 96-106 = 2075-0) Carbon Dioxide, 27 mmol/L 20-29 Total (test code = 2027-) Calcium (test code 8.8 mg/dL 8.7-10.2 = 01561-9) Protein, Total 6.8 g/dL 6.0-8.5 (test code = 2885-2) Albumin (test code 3.3 g/dL 4.0-5.0 L = 1751-7) Globulin, Total 3.5 g/dL 1.5-4.5 (test code = 81560-2) A/G Ratio (test 0.9 1.2-2.2 L code [...] >59 L Am (test code = mL/min/1.73 59462-0) eGFR If Africn Am 44 >59 L [facility] currently (test code = mL/min/1.73 [place] 92388-3) compliance with the current recommendations of the National Kidney Foundation. [facility] [place] will update re porting as new guidelin es are published from the NKF-ASN Task force.
<br/ >Perfor med by:
[facility] Kaur (HD)

BUN/Creatinine 25 9-20 H Ratio (test code = 3097-3) Sodium (test code = 142 mmol/L 433-482 6455-2) Potassium (test 4.1 mmol/L 3.5-5.2 code = 2823-3) Chloride (test code 103 mmol/L 96-106 = 2075-0) Carbon Dioxide, 27 mmol/L 20-29 Total (test code = 2027-) Calcium (test code 8.8 mg/dL 8.7-10.2 = 91776-3) Protein, Total 6.8 g/dL 6.0-8.5 (test code = 2885-2) Albumin (test code 3.3 g/dL 4.0-5.0 L = 1751-7) Globulin, Total 3.5 g/dL 1.5-4.5 (test code = 26597-7) A/G Ratio (test 0.9 1.2-2.2 L code [...] >59 L Am (test code = mL/min/1.73 16036-7) eGFR If Africn Am 44 >59 L [facility] currently (test code = mL/min/1.73 [place] 33142-6) compliance with the current recommendations of the National Kidney Foundation. [facility] [place] will update re porting as new guidelin es are published from the NKF-ASN Task force.
<br/ >Perfor med by:
[facility] Kaur (HD)

BUN/Creatinine 25 9-20 H Ratio (test code = 3097-3) Sodium (test code = 142 mmol/L 210-802 4753-2) Potassium (test 4.1 mmol/L 3.5-5.2 code = 2823-3) Chloride (test code 103 mmol/L 96-106 = 2075-0) Carbon Dioxide, 27 mmol/L 20-29 Total (test code = 2027-9) Calcium (test code 8.8 mg/dL 8.7-10.2 = 10548-9) Protein, Total 6.8 g/dL 6.0-8.5 (test code = 2885-2) Albumin (test code 3.3 g/dL 4.0-5.0 L = 1751-7) Globulin, Total 3.5 g/dL 1.5-4.5 (test code = 42238-4) A/G Ratio (test 0.9 1.2-2.2 L code = 1759-0) Bilirubin, Total 0.7 mg/dL 0.0-1.2 (test code = 1975-2) Alkaline 140 IU/L 48-121 H Phosphatase (test code = 6768-6) AST (SGOT) (test 14 IU/L 0-40 code = 1920-8) ALT (SGPT) (test 21 IU/L 0-44 code = 1742-6) [facility] Description: Comp. Metabolic Panel (2020-10-30 01:58:00 Test Item Value Reference Range Interpretation Comments Glucose (test code 50 mg/dL 65-99 L = 2345-7) BUN (test code = 52 mg/dL 6-24 H 3094-0) Creatinine (test 2.04 mg/dL 0.76-1.27 H code = 2160-0) eGFR If NonAfricn 38 >59 L Am (test code = mL/min/1.73 79998-3) eGFR If Africn Am 44 >59 L [facility] currently (test code = mL/min/1.73 [place] [address]79-9) compliance with the current recommendations of the National Kid[employer] Foundation. [facility] [place] will update re porting as new guidelin es are published from the NKF-ASN Task force.
<br/ >Perfor med by:
[facility] Kaur (HD)

BUN/Creatinine 25 9-20 H Ratio (test code = 3097-3) Sodium (test code = 142 mmol/L 401-898 5791-2) Potassium (test 4.1 mmol/L 3.5-5.2 code = 2823-3) Chloride (test code 103 mmol/L 96-106 = 2075-0) Carbon Dioxide, 27 mmol/L 20-29 Total (test code = 2027-) Calcium (test code 8.8 mg/dL 8.7-10.2 = 62592-7) Protein, Total 6.8 g/dL 6.0-8.5 (test code = 2885-2) Albumin (test code 3.3 g/dL 4.0-5.0 L = 1751-7) Globulin, Total 3.5 g/dL 1.5-4.5 (test code = 84981-1) A/G Ratio (test 0.9 1.2-2.2 L code [...] >59 L Am (test code = mL/min/1.73 75778-4) eGFR If Africn Am 44 >59 L [facility] currently (test code = mL/min/1.73 [place] 24044-3) compliance with the current recommendations of the National Kid[employer] Foundation. [facility] [place] will update re porting as new guidelin es are published from the NKF-ASN Task force.
<br/ >Perfor med by:
[facility] [place] (HD)

BUN/Creatinine 25 9-20 H Ratio (test code = 3097-3) Sodium (test code = 142 mmol/L 221-857 0375-2) Potassium (test 4.1 mmol/L 3.5-5.2 code = 2823-3) Chloride (test code 103 mmol/L 96-106 = 2075-0) Carbon Dioxide, 27 mmol/L 20-29 Total (test code = 2027-) Calcium (test code 8.8 mg/dL 8.7-10.2 = 95041-5) Protein, Total 6.8 g/dL 6.0-8.5 (test code = 2885-2) Albumin (test code 3.3 g/dL 4.0-5.0 L = 1751-7) Globulin, Total 3.5 g/dL 1.5-4.5 (test code = 89017-6) A/G Ratio (test 0.9 1.2-2.2 L code = 1759-0) Bilirubin, Total 0.7 mg/dL 0.0-1.2 (test code = 1975-2) Alkaline 140 IU/L 48-121 H Phosphatase (test code = 6768-6) AST (SGOT) (test 14 IU/L 0-40 code = 1920-8) ALT (SGPT) (test 21 IU/L 0-44 code = 1742-6) [facility] Description: Comp. Metabolic Panel (14)2020-10-30 01:58:00 Test Item Value Reference Range Interpretation Comments Glucose (test code 50 mg/dL 65-99 L = 2345-7) BUN (test code = 52 mg/dL 6-24 H 3094-0) Creatinine (test 2.04 mg/dL 0.76-1.27 H code = 2160-0) eGFR If NonAfricn 38 >59 L Am (test code = mL/min/1.73 45795-2) eGFR If Africn Am 44 >59 L [facility] currently (test code = mL/min/1[place]73 [place] [address]-0) compliance with the current recommendations of the [employer]. [facility] [place] will update re porting as new guidelin es are published from the NKF-ASN Task force.
<br/ >Perfor med by:
[facility] (HD)

BUN/Creatinine 25 9-20 H Ratio (test code = 3097-3) Sodium (test code = 142 mmol/L 526-342 9839-2) Potassium (test 4.1 mmol/L 3.5-5.2 code = 2823-3) Chloride (test code 103 mmol/L 96-106 = 2075-0) Carbon Dioxide, 27 mmol/L 20-29 Total (test code = 2027-) Calcium (test code 8.8 mg/dL 8.7-10.2 = 35436-4) Protein, Total 6.8 g/dL 6.0-8.5 (test code = 2885-2) Albumin (test code 3.3 g/dL 4.0-5.0 L = 1751-7) Globulin, Total 3.5 g/dL 1.5-4.5 (test code = 03197-6) A/G Ratio (test 0.9 1.2-2.2 L code [...] >59 L Am (test code = mL/min/1.73 14099-5) eGFR If Africn Am 44 >59 L [facility] currently (test code = mL/min/1[place]73 [place] [address]-0) compliance with the current recommendations of the [employer]. [facility] [place] will update re porting as new guidelin es are published from the NKF-ASN Task force.
<br/ >Perfor med by:
[facility] (HD)

BUN/Creatinine 25 9-20 H Ratio (test code = 3097-3) Sodium (test code = 142 mmol/L 189-181 6717-2) Potassium (test 4.1 mmol/L 3.5-5.2 code = 2823-3) Chloride (test code 103 mmol/L 96-106 = 2075-0) Carbon Dioxide, 27 mmol/L 20-29 Total (test code = 2027-) Calcium (test code 8.8 mg/dL 8.7-10.2 = 35143-7) Protein, Total 6.8 g/dL 6.0-8.5 (test code = 2885-2) Albumin (test code 3.3 g/dL 4.0-5.0 L = 1751-7) Globulin, Total 3.5 g/dL 1.5-4.5 (test code = 87121-7) A/G Ratio (test 0.9 1.2-2.2 L code [...] >59 L Am (test code = mL/min/1.73 12191-7) eGFR If Africn Am 44 >59 L [facility] currently (test code = mL/min/1[place]73 [place] [address]-2) compliance with the current recommendations of the [employer]. [facility] [place] will update re porting as new guidelin es are published from the NKF-ASN Task force.
<br/ >Perfor med by:
[facility] (HD)

BUN/Creatinine 25 9-20 H Ratio (test code = 3097-3) Sodium (test code = 142 mmol/L 108-683 3312-2) Potassium (test 4.1 mmol/L 3.5-5.2 code = 2823-3) Chloride (test code 103 mmol/L 96-106 = 2075-0) Carbon Dioxide, 27 mmol/L 20-29 Total (test code = 2027-) Calcium (test code 8.8 mg/dL 8.7-10.2 = 00214-6) Protein, Total 6.8 g/dL 6.0-8.5 (test code = 2885-2) Albumin (test code 3.3 g/dL 4.0-5.0 L = 1751-7) Globulin, Total 3.5 g/dL 1.5-4.5 (test code = 18538-2) A/G Ratio (test 0.9 1.2-2.2 L code [...] >59 L Am (test code = mL/min/1.73 91673-8) eGFR If Africn Am 44 >59 L [facility] currently (test code = mL/min/1[place]73 [place] [address]-9) compliance with the current recommendations of the [employer] Kid[employer]. [facility] [place] will update re porting as new guidelin es are published from the NKF-ASN Task force.
<br/ >Perfor med by:
[facility] [place] [facility] (HD)

BUN/Creatinine 25 9-20 H Ratio (test code = 3097-3) Sodium (test code = 142 mmol/L 605-935 5747-2) Potassium (test 4.1 mmol/L 3.5-5.2 code = 2823-3) Chloride (test code 103 mmol/L 96-106 = 5-0) Carbon Dioxide, 27 mmol/L 20-29 Total (test code = 2027-) Calcium (test code 8.8 mg/dL 8.7-10.2 = 03865-9) Protein, Total 6.8 g/dL 6.0-8.5 (test code = 2885-2) Albumin (test code 3.3 g/dL 4.0-5.0 L = 1751-7) Globulin, Total 3.5 g/dL 1.5-4.5 (test code = 70920-4) A/G Ratio (test 0.9 1.2-2.2 L code [...] >59 L Am (test code = mL/min/1.73 69442-8) eGFR If Africn Am 44 >59 L [facility] currently (test code = mL/min/1.73 [place] 85613-8) compliance with the current recommendations of the National Kid[employer] Foundation. [facility] [place] will update re porting as new guidelin es are published from the NKF-ASN Task force.
<br/ >Perfor med by:
[facility] [place] (HD)

BUN/Creatinine 25 9-20 H Ratio (test code = 3097-3) Sodium (test code = 142 mmol/L 622-048 6438-2) Potassium (test 4.1 mmol/L 3.5-5.2 code = 2823-3) Chloride (test code 103 mmol/L 96-106 = 5-0) Carbon Dioxide, 27 mmol/L 20-29 Total (test code = 2027-9) Calcium (test code 8.8 mg/dL 8.7-10.2 = 55146-4) Protein, Total 6.8 g/dL 6.0-8.5 (test code = 2885-2) Albumin (test code 3.3 g/dL 4.0-5.0 L = 1751-7) Globulin, Total 3.5 g/dL 1.5-4.5 (test code = 70266-5) A/G Ratio (test 0.9 1.2-2.2 L code = 1759-0) Bilirubin, Total 0.7 mg/dL 0.0-1.2 (test code = 1975-2) Alkaline 140 IU/L 48-121 H Phosphatase (test code = 6768-6) AST (SGOT) (test 14 IU/L 0-40 code = 1920-8) ALT (SGPT) (test 21 IU/L 0-44 code = 1742-6) [facility] HAND RIGHT COMPLETE 3 [id number] 11:29:03 [facility] CENTERName: FRANDY FORD : 1975 Sex: MRight hand, 3 viewsLocation code: [id number] HISTORY: Pain in second finger of right [...] Sylvester Case MD 10/29/2020 11:29 AM CDT [id number] OBTAINED CULTURE + GRAM [id number] 15:17:00 Test Item Value Reference Interpretation Comments [...] No organisms seen (BEAKER) (test code = 840682) SURGICALLY OBTAINED CULTURE + GRAM [id number] 14:58:00 Test Item Value Reference Interpretation Comments [...] No organisms seen (BEAKER) (test code = 298825) Tissue [id number] 09:25:00 Test Item Value Reference Range Interpretation Comments Case Report (test code Surgical Pathology = 104) Report Case: [id number] Authorizing Provider: Laura Nguyen MD Collected: 09/26/2020 07:56 AM Ordering Location: [address] Med/Surg Received: 09/26/2020 08:55 AM Pathologist: Hilda Mack MD Specimens: A) - Soft Tissue, Debridement, LEFT FOOT BONE CLEAN MARGIN. B) - Bone, LEFT FOOT 5TH METATARSAL HEAD. DIAGNOSIS (test code = s9mpiOQeHXCgb1rwIYIbaL 3220) FuZzEwMzNcZnRuYmpcdWMx IHtccnRmMVxlcGljOTIwMl rnmpKwSDEqdSStF1Bnzfhk JKtvDI6lMF5emDeybTFirL JjOUHiEpPuz6mng666hOZe o9leYEWDgjkygCb2iEhhM0 6xc2Q4DjntQ08nmHHrEVpq bGFpblxmczIwIEEuIEJPTk YeBRfHMlYfVg4EESSYZLLD OhLFEQXPVR7kACQNJ0AJRA vdrECzZXGhER1pJv6QHVUE CsBeBueCGg4PZ26YXXRLVS FZKLVEB3UMOYoeXoPFKWZI JsKwLd1OKHCSDFLYQQ5OYF VPTVlFTElUSVNccGFyXHBh mcJXQoPYK17XEQGURTPNJO QVC4MiCIHYJS8NFDYYBHWX YMwlZWTSFSawYW4ZNECKXR aMVhmnaAZtNBWqJM7nMSVQ KYNdZL0WYNLCVk1UAKEoZ2 XUYA6LYBZLWCUCBzNcyWUn iVizrhKtHTyvu2TbHOjtLZ XlKF1gnBgvJKWvMD7qCJUw R3eecV1kcxn5GoUaOSAvFu G6XQLahuF4Hdo5TLFjRRqg p4fkr3SoJTApBEv8sHqePq KmXQXkd9zequJqOfQrTMLx XQQzHBNstOHaJ422t7nen5 cymgXqfFT6RPLdOUH0XKgt lxHguoL9DRbwrDKbBiF2AM tccmVkMFxncmVlbjBcYmx1 SEHkG871PPJ9qHqvk0mzEF A3MMYfZBYgEiUwFz5ytZAn K101MYBkZUDBLUQwrXo7ZD AznkYljtBvxUOYg679D820 w4uaPVKifyMntUcXikqcd9 waF440EKLnqWQevtKrHiPw CSGzmPOuiHF6IAFkDW4sjb yeYSnvTJqgWUIxmeT9BHWm iHXdR7JnIGWvHK5snhtaRQ H3QAqoCAZkQFZ0FzRbVTZy r0Exion2XlGixh2rlq94LF J2k5UqaRjjVDM8JSQ4XzBr Vg0ulLGwRPMqJI0qBlYfoH ZaKDKbhn77wMcdYPlmHVW3 IZGepwDln5Ycu9mxQqLscp QoX0tuB7VeXPAjUUFuDIKp AfKydcGrs1Bxg2YpkILatJ j8r9waGNQqWCTorInal1ny TSN3XBWjbKWvI8ajdS6hFC ByLP7gqzhkx0dePJqcEXbw YUYqcGQ4pcA0DWCcbMSqQ5 IwuO8dOXCoPZpcDXLnntz9 JdFkGd0dxFJqxFmpQGdjTy twYWdlXHBnbmNvbnRccGdu ZGVjXHBsYWluXHBsYWluXG YwXGZzMjRccWxcbGFuZzEw MzNcaGljaFxmMVxkYmNoXG FrRJdwL9nlZkKjDgArXjl7 BQZvoRMwCACmMop1WMWytY VqCRWAxVdoyW1yVIRdzKwo jS7ifAO8NVTqxlPfpSGKlU 4lIKLKrJ8kOpTlHMFyMmT0 LTcxNjNccGFyfX0= CPT Code(s) (test code q3ianUOdVKMcyNW0FhJfVD = 3357) Fag8ioz4FftYQbjANtNAtd wHJxblWyxr83gUG2vK92LH 9zIMArVqV5USJxnkD1Hpr9 RHTyQQOhjWWfF250y9fkg9 buidUomXH5gUcxRSUgSUQa YWluXGZzMjAgODgzMDUgWD JlPXq9UjOlOVgaDNNnpn4= CLINICAL HISTORY (test j6gduCQjTWGuuIG9OaWgJN code = 3356) Yqf2yba8WpnEBqgWHyCCol rEVmjjFhed32vNA1bF57IL 4wQCUkXqX3SUBtsaG1Hbe5 SWWtLJStfBZjM754m4dqd4 tgunIhlKU8jBgaGIRtPHBk SJyuUTFrJvToYXtbWcX8lX HqdJueYRMew0UjhHAngXZz e348WHDrh46fgAS4NYNjc8 s3vQLsrOYuNWVqomCyCJft eIR0ppXphPDtrC1sdQ5bKB YkhAraKjXcm35zbJMmw65x DFBei3YuN4wtpMHaUOSosx Dcv7HtJk3jjBmheL2nnUTu rYJsQASnvRfvUUPhh4AoH2 UgXHBhcn0= SPECIMEN SOURCE (test k5qypFBcHDIeqGV8JrQtUP code = 3377) Ixz6jeo8YdcGPtsWNdYZic xAGujtZjib70jWH4pJ43IL 5aDCNzRkG4UZKxerN6Dlk9 FYAmWJPxqSGmF284z1lxf5 ttmgGvpSH0dUelBPGwRSMw EWttCNYtFvUbCI1hR68jvL T9yYTgpKQtEPBeBiTaIYUv OC02LgAVFnHUg46zVMutSI J9 GROSS DESCRIPTION (test f7zueVNbQHPzrFZ0MoIyCV code = 3366) Nae9uwk5FqdNAfhLLjFTwc dCZvoqWjpb68mWH5uF88TR 5gXCGkHrS7EEKaxiK0Koi3 HYYaGUPydIEgL754m9tjv3 lziwYqkHC5hFjaHNNgNFXp WEjiLJNlLpNrJH7eDQbmSA GyJQMakVQtCKaxHTRuN0Ib vzJbCRpdXYBxQ18ulEDbni IcOGtxpRgwLw1mwUOtrE4m hBZdVUmjMMF3rCTzWRD1tt GjTURzOL54MNgjQT38iBIu VPCdNTWyAYAxz59flZO2aF BdiSCnLRKnGiBvSPOuHT40 Sk4hZSOcW56ul6ygxLOri2 KqUQHzLLyeUC80OYksMT9j ADZmOWSaNMpzYG07GH6lVZ Zgwn39uZy2XBG9qLUfaZMp o2xnM2qyxODsSl2tSOjfgE SsvHQgSqFXpXKjqAV6JLMe bZ4kHGNvOJM7OTMcyUofnZ YcYDOsOJlifVUoD9G7gH4z NiTgPERakcarMXCbUu4uEE hlIHNwZWNpbWVuIGlzIHJl W9YlpeWaJYttPFMkW63gqP XoasRpKMrizOmoQp6miZKo yF1drJAuYDmlWAZ4xLSaPG S9ngQzZKOoBC73IEjvOT26 dZWyMAVlWBWtWYFiOe6kZM QxEJi5WMTzrxFbz1OvIE2p XSDsVE75CImqYVU6IDWhF7 0pGmOfT41niwHif8GfMv1g LFM9vZQfSQJgqUszcMzgvu KpYJN7cFvhX9JqNZVxx9An YVGeF4Aru10zIEJnlrCkp4 KlqPv1lCJvWFoiNUDeEUMb sHOhQWMiW8MeD0bbtINauZ rsmj0bHPLeB1QoIJCfdt4= MICROSCOPIC DESCRIPTION w2fhrGVfPYXyxBG0AeRjYX (test code = 3371) Nvg6mgz7ZxsRFspSFnPLoi kEQzavMpuk39eDS9kI85MX 7kDARoPvL4SBLylwK5Lry1 PXHzQSAtvVDzZ580a2puk8 hnqlFrrNW4gDnaGTMjXEId FBluTRTpWqKdBV3EAuGQTL Xlx3JbKQFbFOtuVJX5 Gross assessment was [facility] performed at (test [facility], Department = 2777) of Pathology, [address] [place] [address], [facility] ([facility], = 2778) Department of Pathology, [address] [place] [address], Professional component [facility] performed at ([facility], Department code = 2779) of Pathology, [address] [place] [address], [facility] [id number] 09:25:00 Test Item Value Reference Range Interpretation Comments Case Report (test code Surgical Pathology = 104) Report Case: [id number] Authorizing Provider: Laura Nguyen MD Collected: 09/26/2020 07:56 AM Ordering Location: [address] Med/Surg Received: 09/26/2020 08:55 AM Pathologist: Hilda Mack MD Specimens: A) - Soft Tissue, Debridement, LEFT FOOT BONE CLEAN MARGIN. B) - Bone, LEFT FOOT 5TH METATARSAL HEAD. DIAGNOSIS (test code = h8nyiFMtAWQwd3tyCXYxfD 3220) FuZzEwMzNcZnRuYmpcdWMx IHtccnRmMVxlcGljOTIwMl dobjFtEWGppUOiT1Kjusai NRcwNF5hYA6dzLatsEAmsP SqDFIgSoWbb1kmk315eQRv n9bzQTMTplzouXr3jItdC3 3kx6Z0VgjkF83nmEQeGEdz bGFpblxmczIwIEEuIEJPTk SzVBlYSzIdMr5LLLQFZZCU PhMIBNLMCM9wCKKJO0VMTL ureREnNXJcDM6pLa3HAXRB MiRmEbdEIx8MX93HCRQRUG GARLYRO6YBISrsVpZARZHG QeJsHv8TECUKGTBSWX6EUO VPTVlFTElUSVNccGFyXHBh ltMBJzNNV84ZCOJIFZLTHQ UBG6QiRNEXFG4DCIZXMKBF REzkJHITGOuyGQ7QXDWGYW vMCndnpXPtWBRlRF5oFAOR NPUlZD0IGFDTBb2BNDTsA2 TQBM0PPUHJETKHYtQenLFv mRtumiEmPUvie1FtSNanUA GhJC8qtDhaTZJaCR2kXPMt S1tjoO0burs2TkLsAEXhEs G6NCSrohZ5Lzk8OLBhCEag i3ljk6LwVGMiKKz3eLyeWx GvPDZum1uvdnWfZaDvOMWz UBZaOALqhMJdO380a1hzp7 vvmxBjiSA4BWYbCQV5CZri doFwuxI4WIonfXGuAxV5DG tccmVkMFxncmVlbjBcYmx1 QCRqZ678NNA3fKiwm2nmPD B6CBVtRUWlViVfAd2dsHNp S810CBTrVTFGNZIzlYs5EE BsygWhfdNviALJr053S018 j4jcMBYtxcXnuXqGviioa2 hlG264SYOoiDMfwhNiWsMn FOPeuRBcnMD7ZPUeGF6ino pfREbvXXiiSZFlssF0CRBl tZPbG3NyBPBnJN0ajcycHP D5HZxnTUXvLHM4JwPiMFQo o9Dpyru3LzDlfg3lbt29OL T4q1TodWqhGVA9RQN6RtHn Tl6agAWoXTEvVH3hZsHcsG IlJYRzbu46aLztBMbjNOD0 EHUgswQzk5Hvw8tkZuTfwz WdL6baV8CiNJZgZXNpZIFs GaMfrgHpi9Gqy0ZbnIGibR f2p1myMMDbSDEhyPkvb3xs PZY3GAHoaXVvS4pbaV0aGP LvFO7upjobk2feRQvwMBep LMExvNA3lkN1JBXmjQQeY3 UgbB8vUSFdQGjpPEIvusj0 QjHkFd9inORuqBvqGWacHk twYWdlXHBnbmNvbnRccGdu ZGVjXHBsYWluXHBsYWluXG YwXGZzMjRccWxcbGFuZzEw MzNcaGljaFxmMVxkYmNoXG GuTZniY8pgDjTdEkSvSta2 UQOcjKYjMFBpNch8XSUdgT WuYWTZbNczwW9yEOIepOjo sL7qlNB2SAJupsAdaEIWfP 0nCFLPuR1cZbVaIFSyZhC7 LTcxNjNccGFyfX0= CPT Code(s) (test code j5gppBCyKGNvqEP7OsHqBJ = 3357) Dfp3jys1AtqHPpbMIuKSzl bQMegaHfyn74xPE8jG88CW 0bOOHlLeT5MLFoekU6Yyp6 AMNkSPKpbPTyZ119f7cos5 oeutZkfPJ2yTwvVSGiPJZv YWluXGZzMjAgODgzMDUgWD BlXFv7TiVrOIrsMSTayb1= CLINICAL HISTORY (test c1qskOFhHDWqlHW4PsLhYB code = 3356) Ecf9ayd1CvbUIbpMQeFRue kYVxfzBjkq65yZB4cQ55CS 1iUQFeOqM4PXSktaQ0Rpa8 YCRrOASpdPKuU467a5bha4 nkicKshOE2mBbiHLVrMEAq LTpiPEWrKgCbGEtdPoM8gH TnjZuyDVGiu5LjeDUfjNSf g860FDUst30znTM0DUTcs9 r9oTGldNDtKSSujcMaNRtr qSG7myJifSZpfV2quS1iCL TabPntOnPlu86puEXxh52r YACfe1SgS9looVPcJMQimw Ybv7RvEw6bzMunyN1vxVAt uWVbQPHviKeiNHOlk2IsC5 UgXHBhcn0= SPECIMEN SOURCE (test e9buoCAfZDDgpNL0TyZjTJ code = 3377) Ong1kom1QzjFJujFLeFAgo eNSocfCahh02cXW2fQ39BZ 9aICRcNfM7RWGkeyB9Tux6 OMFlPEJhvWMlX878k9cyx7 wdwjEouIS9rFoaXLCySXSq LTgmKIKeXxOvNE3hE12dnY P0jDSfqBBfXTYaYeKcCORr EO40RxQIEiMDa57vAMsqXJ J9 GROSS DESCRIPTION (test o7xpkQLpBPPvrKU4HcOeBS code = 3366) Vrg3lck0HkoPKnaUScNKoy tCHbwgXjii73qLS6gR97LC 5dTDCnXnG9NEEbanV0Vzh6 XYQsBQOmnSWpT680g8hzy3 inhdElgFS0xLgqNOXmNHZn BYztWAJoVgUaUL9ePJktYX YjREZiwYXwQVboJIPgO7Ly hhTsQSjkYRXkP59ttVDcpn ChFMqeoMxsMn7yfFIsgU3y bAVcKHfpKMD9lXPhHQX5cg UlGAGuFW00SJkrDF17eTZx QDNwGKNuRSFkc29khOS2lY JckHCySIMqMjNzRJQhKI39 Fv0mCIOqQ83pn9jyoJMvp1 LxVYKaXXsaOY49AZwlIL2j HBQmFTWlWAupHO39JP4fYT Atfg91wIf2HLL5nNJiaFJu u2ipD9qzpHOgZf5bLQwazW CjkUFkReYZgXOqeXT6RWRx eU5qCZDrJTX0GUQscTemsS QsVVQfWGzjcYIcE4G2mD9y JgWcRNNmtsscUXTsCw0yWX hlIHNwZWNpbWVuIGlzIHJl B1HzfcJyADnlJWEkM54yvK NpeeRyREjxkJlgHq4kxEQw qE4bcXDoZCixYDH5bRSxIC R9wrPmDAAyJG61UJctRV98 rAKiMOJwFQFgDWDmYo4jLL LcSTk4PDSlkeXhd4RqLV8e JAOxYO49KMujWWN9NQSiC3 6sFgSqM78zckOny1XqYh0p NCN1kDJeRMFodNkvwFpnud CmWLN6bCfbB4CiAWOaa2Lw EPQgI1Bfs29uRVFzcoAog0 CyvVw9rYOyNCosFFQdQROd yVYkLXFzJ8SsA6atkOJtmE mcre1sDTDtZ2SgUNEmdt8= MICROSCOPIC DESCRIPTION k7hllKTfQYTrdPU1KiGoSO (test code = 3371) Str4kys8QjnYPnhSViHFzd vWEbtjVkdz38xBA7eY24DE 9vZLDuXnK6AKYkjjH0Zzp3 BGCzYXQasNClY149q5xyr3 gudeFirTV6mOndQBMhIVKp SWdkFDTrNxTzRP2NRnYZNN Lif4OiQSZoBXwjRJK8 Gross assessment was [facility] performed at (test [facility], Department = 2777) of Pathology, [address] [place] [address], Technical component was [facility] performed at ([facility], = 2778) Department of Pathology, [address] [place] [address], Professional component [facility] was performed at ([facility], Department code = 2779) of Pathology, [address] [place] [address], [facility] [id number] 09:25:00 Test Item Value Reference Range Interpretation Comments Case Report (test code Surgical Pathology = 104) Report Case: [id number] Authorizing Provider: Laura Nguyen MD Collected: 09/26/2020 07:56 AM Ordering Location: [address] Med/Surg Received: 09/26/2020 08:55 AM Pathologist: Hilda Mack MD Specimens: A) - Soft Tissue, Debridement, LEFT FOOT BONE CLEAN MARGIN. B) - Bone, LEFT FOOT 5TH METATARSAL HEAD. DIAGNOSIS (test code = u3nsgIFzAZQal1biARLkxP 3220) FuZzEwMzNcZnRuYmpcdWMx IHtccnRmMVxlcGljOTIwMl culdJbASOrlWYeS9Ktqnej NJgvLQ8oML9laPsfkRPttW UgLZZsNwEfb7mml611hYYm u1hqVXSMsmnfmVh1bMbeK2 1pc4W7NnsnE96rtEAcTNkf bGFpblxmczIwIEEuIEJPTk SnXIqCNsPlDf2IODHIFEHQ GsVCWOCMQN1dBTILX2CTRD ysnSLqEKAqQX7oEh4WJEQW PeSyZqpCYn6NW89ZPOLFKH OTWZKKW4EKMAswBsINFVZI EfVrLn7QXEIBCQMXLZ8YLP VPTVlFTElUSVNccGFyXHBh xjETPxRKM61VOJFYUBNGAJ FQF8BoDMNUHD2LGSWCHOHR XAdhFTTKYFybSS2MGEJUVX qBSdpfjWVdTMLuEK4jOJZF DOLyKW4REHUSCa4TVMLkO4 GCFH2NCHAIHDPYLtMprVWk cGoxipGfVGyap6AmBOioJW QcJR3imMdeBZCqUN6nAMXh J6izqR0ybuy9BhEjDOMoHz T3RAFebbP3Bdk8NSAlRBii z1xhu7WdAOLwRDj6hXtuGb HaVCMpl4djudWfJgTmWPSr THHtRPKjdUYeJ686g5asw0 hedbBrcKE7TWOvKOP8GCjl omZmxdO5CRejpOApVbH1MT tccmVkMFxncmVlbjBcYmx1 YVFhU086YBK0bGuve8okII D8KEPnZOCdXkRiGd0hqUXl W008MKLuAOQMQOIvhSh1TF YlfvPivrIapIRGb998T374 z8pxFRYfbqMbiNfQfvsfd2 bsZ951GFRtrWRqzsRpMfZi HMFpaVSfvQS8AQYrVQ0phe qeXAgySKzwZFGyyxH5CHFt gEYsV6ZuRTVuVK8hgelbBE N0MSrhPPJwGEZ6QdGdZLDw l2Fxdeq0CcRqcx8gej75UU U7o3LdbDrjCYF6SKX2QnIj Jv1znOWvVSMnWV2wXiKurH OmAWNmbn64aVigHFhaLXC6 ZHAuahWbz4Izv7ygElFcjp MfA9ipA0DpTEGmIFWhYWMp YvZqizTzg0Kdx8JleIMgzW p5l2vhUHTuWVUjiVygi0sz BGX1XYJakKAoN5kyuO6uTF ZwSF6jnxmpe2orLZxtSMle ABAnlQZ1lqW1KNAxnORvM7 OwxS0nBGEtXVipNNSutoi0 GyLoQy7jcXAnyEweQShsCk twYWdlXHBnbmNvbnRccGdu ZGVjXHBsYWluXHBsYWluXG YwXGZzMjRccWxcbGFuZzEw MzNcaGljaFxmMVxkYmNoXG BkVKphK2gcWcNeGpMqFti1 QIRdbRXmOTSgBhc7UJOpqR QeSLJRyUcteC4uMJGqbKmt gT1apZM6DCXdrrMcyFOWgO 3wEQLFgZ1qBsMvLEOmYmP6 LTcxNjNccGFyfX0= CPT Code(s) (test code s8mknQGpLRNjzSR0AdXtCO = 3357) Flz5ibs9TnfHSezUIfKYxz qROqbxOgtm20xYK8fZ28VB 2wCIVbSmP5HPRzzgK7Qbi7 CJIrXPTmpWBgO687q6clr9 iiiiDmqQY6nNiaVAVtQXMe YWluXGZzMjAgODgzMDUgWD AuQTn9DdZcDRlnWCAucq8= CLINICAL HISTORY (test o4hovPEoLIYjsCS6VmCyVJ code = 3356) Rcw0onw4PprAAcxKDkYUxh aYQuaeIwch36oYJ6aL85JB 5tOTQdNcH1YZJoejQ6Wnj6 FSDeUQTrwRZbL757h9fab8 sfbkZivHX4fGpaKGWnKBFc CUccENSzNnFnSIuaDwX1jM RxbGheIHGua5TplLKbxQHx r050JRYrr86chSD6MKIkx4 u8aDBpuONcOFXtczTqLCmu wZB8nrLkkUPruX5guC8gPJ ZheXxeAyPns48maZIha79g WWUuj4XtQ9svoTTbBSYxui Xnn4AlLe4doZpdrT6uxWLs fWLoKZEkuMwyPPHbw9VvM2 UgXHBhcn0= SPECIMEN SOURCE (test q3cjzMChNTPwoGB8McHcQY code = 3377) Gmn9efm2YcdSWskMWkDCwy lMGcduEapu73sST2lU87FV 5uNBIlTzP0JRPejvH6Qgc2 XGIbHMFonBTqX084a8dxn7 nlivLftWR9aUgpPMIcFUMw AFvbHSMdWdJyBJ3qG11vkJ O8tLKxoSSfVNYtDaWtZLNr KL03AgJOGfFLv32kFQknVK J9 GROSS DESCRIPTION (test c4zqsTZvKYKdoWH2LfXwSK code = 3366) Djb6uwq0OozTCpwPDuWYor lYSkmdDejy89tYQ1hS27DN 2tQQObMwV0BWTpunN7Gsg9 JUEbCPYtjSOoT731j4quy4 ffpfDgfDG8jAsvXHPnKXGm VDpxDNVfSfEeOT4hTDwrHO XnPWUwqYRoIGokCHNcD5Yk ztCtBIneOBFeM99laERypx WkJLhdjNccEa8whEBbgH0m aFSpUNrzSYP6qRVtFJR7fs JeTOGtRL69XUkyXY17tSJl XPNtXVScXXByk77evSO3bL WydTAmNSRhTqUuMAXuOL55 Me7xAJPsF90ab0qipGQqk9 OfKXEpJMbzEU80UDdaWO3r EXXoIZQsVFnlNR99FB5kVP Skey47zBq7BSK2uACpdVLu x1ztI4siaQXtSt5pOQscxQ HyaLFpSlQYtMJjmDH7FGRm pO2lXBGtGUK9BTBceEeggK BbMRYwYMzkmNRvN1V9zG0t CiDjQAYwteetJSOdDh7oGH hlIHNwZWNpbWVuIGlzIHJl E8TycfPjXCidVGDpU00zpI KwlpGwHRkmoLrjCh2woSJx cO1bdEIbYYcmNNU6gPKwZN H4wzOgETFoIA01XXtzVY05 rSHqBNLfCHXqBFEiCm2gRC PxPBy2YEOprjXvr3FiKP6t YNXrOI68OCxjVTF4PBHhG6 4tVnDgB81octPwz1FvOs5m SIY2iCStEARvtExpnSdzwz YgTPB2tBrhC6PdBOGch8Zd HDZfH5Hci44rLXVpglGdq2 AwrJy1eCKfGMktGEHnNSWu uTDxRAWqH7YmD3wtaSGzaB ldeo5oMRAfZ4ViNQAmer3= MICROSCOPIC DESCRIPTION t4xtjQKsFYFooHG0QiZfZX (test code = 3371) Xoi6kjt4HqjZJdgLVqJZac kSGgpuXsgr38bUB8kB38ZS 7gXBRtWvO1FBDryhA3Sys3 GEHwNBRyzLTxR945i3gcf7 ecfgYeyDW8uQvzTDFoMUCf KRnmCQAsBvFkGU7OOjHUTR Uug6QmXFViKTnkPTT0 Gross assessment was [facility] performed at (test code [facility], Department = 2777) of Pathology, [address] [place] [address], Technical component was [facility] performed at (test code [facility], = 2778) Department of Pathology, [address] [place] [address], Professional component [facility] was performed at ([facility], Department code = 2779) of Pathology, [address] [place], [place] [address], [id number] 09:25:00 Test Item Value Reference Range Interpretation Comments Case Report (test code Surgical Pathology = 104) Report Case: [id number] Authorizing Provider: Laura Nguyen MD Collected: 09/26/2020 07:56 AM Ordering Location: [address] Med/Surg Received: 09/26/2020 08:55 AM Pathologist: Hilda Mack MD Specimens: A) - Soft Tissue, Debridement, LEFT FOOT BONE CLEAN MARGIN. B) - Bone, LEFT FOOT 5TH METATARSAL HEAD. DIAGNOSIS (test code = c9inaIOkVQWgn8fyPKVejD 3220) FuZzEwMzNcZnRuYmpcdWMx IHtccnRmMVxlcGljOTIwMl eyxpRmNAAfgRSfO5Upebjo LYlxSD9hFL9blUbrhKBozP FtJSMiLfJgv5doj324gIVc t3mcEZCAnprgjXt0iGksT8 7da1G0NqgsE12seAXxDXwh bGFpblxmczIwIEEuIEJPTk HzOJqFWdTsRw2VLJFEIEEG CbDCUKDWDT1jXBZSC1WGPG isdNCuJTDyIL6nOt1IMKCV BsFdOzvBDi0KJ68ZNDMZES GLQULNM7VCREplNxLFDMPG AqSwDm2ARBIHFBJVAL7YSP VPTVlFTElUSVNccGFyXHBh xiAPUtOHU59MJDUYYQIAEI GQV5WbKLREOX5BCRRFHNQV CEczNLQOGTbtGL4JIQDDGP wASecziYGvNQFsVD9xZVOH YCDiKD3UHRCTCn1CWEYzX7 KVMR7ENANBUVFLGsSboPXz uBdgthTtXQlyr2HiWJfjNR YbJR9wbYzhMPIuXZ0rKLFn Y8zzuH1iwfv5ZrOuSFDaDd D4JELpiqW2Vxz1ZHDePXpv q8ogb6UqEBAzLTv6aIieHl PiXDLwp6hbmiTpPxFaCBFo LRDvOSOtlDEoJ985h1wow3 ceiiCltPC1VRFjPBL8XOfj thFtxzN2AKpngLBqMcH3YS tccmVkMFxncmVlbjBcYmx1 LJZxQ224MZB5dEkou6meKJ O1KEBsBMTcKaWxUv3lsHBc M071QLLcSQHLCLYxtJq4KA PpdmHtagIqkKNAd132R937 d2omIFJpdoDweUeNqawyl5 enA812JSBryFDjreHyFsLn DHYdnVIesJJ8HEVnPZ9djm iuWOkzEBjoAIUplmV3JRMs qUQeH5KyTXFoYF9ohzzkZU S0VZynADGeHNW9KcFvJWMl s2Hiirc6UzLdnj5dml02FP H3a7QsiKowZIS5KPX3IpYd Xu5srNNkRYOpIL7rCcRraY HjTCTjaf91lOjgFAoyKYD5 EPCutiObf2Aef8nmFdOlyx KeJ8kfP8ZvINEbTSXyFLUl IbXcjlUwz0Yvh0JsoTIlkH c9o6ajCINoRICmrJutf6gw WIX9KVNxvIPnN2vxbM0yEJ FpOV5xjcbsm6waZIdsZXur ZYQqrHK0fbG7APOtkIGpS5 UleQ5dTBSpHJgvWVUobvz2 BaIhLe9siKRrfVdjGQapAr twYWdlXHBnbmNvbnRccGdu ZGVjXHBsYWluXHBsYWluXG YwXGZzMjRccWxcbGFuZzEw MzNcaGljaFxmMVxkYmNoXG EpSQnnU4ujXrWkJpPkKon5 IZUbfOHhQNDeEmb1XKBruL IqNEWHrZaslD3tQSThpGyy tJ9owEQ4UGXxgrRfiVXPlM 5yYVPGzT3xArMoBSLbWwE9 LTcxNjNccGFyfX0= CPT Code(s) (test code n3abjIQpZCVhjQG8GlJcNS = 3357) Szd0nmq3UpsNIpnMSbVKeo mNDgdwMamt46wFK5mI94OV 1bOVKuXcN4LHOoljT5Hza6 YYAsHQHguHLrO684b0rmj5 tmyqTfiKO5fVvyVEYdWBPb YWluXGZzMjAgODgzMDUgWD AoZMl0GfMwTRgeXANmdr0= CLINICAL HISTORY (test u3vloNMvSXBxmXX8LhRfCD code = 3356) Brh0vom1PopDIjxMPuSWzu mRFgglZjmn90cHU0tC84PI 9uULDrPqK2VDZhuxF6Bhx2 NAIhWRKnbWTrB380g7ymh7 zeafJjeSM3nXzoEQFmGLUz XKkpBVOcDyWsDAllBuU8uL TgeVqrGWZrc9FpbJMqgITt z835EYOpg51fsRL1JVNrx1 e9wDLvkTUbIVOryrOpWZea wTE1iyIfrOMtaY5uaX0qCG ErnCrtRsWpa16mwDIsv30i PXVid2XjY2micZAdTDJixt Fle3FuJo3ujUtgfJ7fdGAr gOKqPVOquFzeASHuy1XeD5 UgXHBhcn0= SPECIMEN SOURCE (test h9zgrLChSNQooDU3KsCpYT code = 3377) Wcu5cze2JhaQHosSOoHAsb dAJexwKpme61xAR7wU25MK 4jAIHpShY9ITStgmY8Jxr5 TUCxBBUeaYCcE932b2yzv9 bdvaQsyXC8ePujUEUfYLFu SKrsIJYvBpFtOH7uM17eiV G3uNCjnARhSNQfCpLvKPUp EQ72QcWOZxQYk43hQNndPE J9 GROSS DESCRIPTION (test c3ytsGZfLNMqxDO4TpQpTY code = 3366) Iqb0lqq2TsgGClrCQuPOdm kJHsrxXabw43zCG9pV06YS 8pKZNwNhZ6RRGiisJ7Ibu0 TUYcEZSwfJQpE195a0ekq9 bfruIxrEH2rBvbOZEzVRCx IOdbSEIwPrSoNZ0uUUstYB MuDOIdnTThPKtzDGGcN9Ow hnWhNYaeECBzT93fgYKdqp RlXIscbGylUt2eqZWekT7l xRKsBRheZXP5tHEsSBV6zk ObNVZxTL71DFrvPS09lLZw QFFqCZNvPSKcw00bwQD2pT QyuZFhDFVnXhRtTECmSE23 Dw7uIXQeM65op2lzpKQbb3 GdALJnCCohYP40VMyiRY6p EQFaMWUnUCvhEG39QK9tKW Lqah36mVj3DMV2aYIamYNl e0xuW6pwgCBwQd7zQDmhpW RrkPVbMrWSoOQbzPU8PICh oV6ePJPeIKX4AZCfzMtqjL AmEFDyTVbrrQOnU0U3fA4r SzUeGRVkbrtpFSUdLc6iQZ hlIHNwZWNpbWVuIGlzIHJl H4UzlqDtQEuzZXQvG40zcM DgzfGtCBelvPdsKu8ptBJd mE7sqVGtUXipOZN6nYVoXY F4idMyJYJcRB57VBjsSK25 tSDaZOKjLOClKNOfRe3vKN UgMVu9MUAydfHxv9LoFI8w DZFhFT34AEwwKJZ3TBIrO1 6oLtGyA57gsqFwn3LpCq9n KZU8nKYgQRXgsJfmaJcjxb FfCTN2nPuzM0FsOMDdq0Yj DNBnF9Etb08oHTZqkfGkb3 MbvAd1mJWsGGomSAApNFOz eKSmMEMoR3HiA7lpoVAjlY jehl1qBFHjB4DaFNKvft9= MICROSCOPIC DESCRIPTION y1qfoZNsXMXdnFF1UsZySP (test code = 3371) Wor5wns9NxwKXkwPHfLUcj oEJohsYnok32eJI9tO03EW 1uAKDxOdB4ZFPeheL4Mnv5 FUMbCVDteDFiL712h4jka6 ijtgMfqKH6cFzyGGFtFDPn YKelUQHwLzJhNM0SKuMJED Cuj8KdJALfDUtqSVQ5 Gross assessment was [facility] performed at (test code Hospital, Department = 2777) of Pathology, [address] [place] [address], Technical component was [facility] performed at (test code [facility] [place], = 2778) Department of Pathology, [address] [place] [address] [place] [address], Professional component [facility] was performed at (test Hospital, Department code = 2779) of Pathology, [address] [place] [address], [facility] [id number] 09:25:00 Test Item Value Reference Range Interpretation Comments Case Report (test code Surgical Pathology = 104) Report Case: [id number] Authorizing Provider: Laura Nguyen MD Collected: 09/26/2020 07:56 AM Ordering Location: [address] Med/Surg Received: 09/26/2020 08:55 AM Pathologist: Hilda Mack MD Specimens: A) - Soft Tissue, Debridement, LEFT FOOT BONE CLEAN MARGIN. B) - Bone, LEFT FOOT 5TH METATARSAL HEAD. DIAGNOSIS (test code = b5gguHZiYIEsk7cpGJTktG 3220) FuZzEwMzNcZnRuYmpcdWMx IHtccnRmMVxlcGljOTIwMl usxqYxWIMmlXQgB4Gfvzcq GDnvAD0jXR9vmIiqyWKlpU TuSDUxGcLvb2qxy658dTQd l9vtHIWOrtyklPl0mDkuO0 0vf8C9RgfvG34cnZSiMKfk bGFpblxmczIwIEEuIEJPTk CxVZdPVsMsFg1JLBZZJIJF LpLGYTCNHI1rUTJSL7FREV aohWFaXHUgMV0jWz8MGQDN RxNiKpyJYx7VT64JAERJCH UCJZDMZ6YDRBswYhEPWOEH WqJnZc0BEGKCXVKSFP3VUM VPTVlFTElUSVNccGFyXHBh peHGKrRSW82GKMIFLUXNBP LXY5TgSKYOEU8VCPRELNKI LAhcZQOZKLgsEW0VCPSOYT sJYjueuZJsNWWgEB4rLQUN RHTtKP9DVGVLIl3ZZLNsH0 JNMC7AUJYDUCUKKfLsgUAh zBvfybUaCUgmy3KfWKolUG UxBF9oiHruIRVwGO6vIVYr L7awoS0uuul7FqOxMCNsTe H6RMVlvcA0Obx2JEFjNQlj f6nih4AnYCLjABz3kNfzFo EpEUZgs9iuvlQrFpDdVNSq SMVzKHWekNMjQ453h5zpq0 zuliUxeXP7GYPsSGT0JIoh jlTbkzB1VInvfENuNvG8UV tccmVkMFxncmVlbjBcYmx1 XFCpS988JZS1lNcto0mcOD O3TGUjYEUhUaSyQg3xrVMe M768ATWrDUGQCNTcwPy3JY TqodDobqIsoUCNb603T251 s9wvZXXapjRyqQnMfwgtu1 siU114YWWntZNqtnVeOvNq RATngPCsfZY8VAHgXW0lnh vaIRaoYGyvUWZlzlF5UUMm qFEdP9LpYATaPG9hpewqMT A4EGcmJQJrHUU7DfRrSQFh o8Zxprd3TnUken8pyd76JU E0r6WjqNfqXLK7JVM9TrXl Qw5shIRjXOVaIL9oWmVetM ScOWIuqw73uGgrKIrpNTX4 TQOuflFqz3Xnp7rwZtDzts ZcZ9gxV9CpAQEiPBBdFSDm EtUsdsVfp2Fhh2MpyYHblP k5n8inYNIoGOWmkPyud6fk TIC9FWRfaMGcH6oawD1aHH QxYO0rfsxgg4uvFAakQHxh VRBjgYV0lgA2IMIknFJnE7 VkyE7jHZUkKUrzDTUoknc3 YlZqFz3gnDJtyXvyJKcyRu twYWdlXHBnbmNvbnRccGdu ZGVjXHBsYWluXHBsYWluXG YwXGZzMjRccWxcbGFuZzEw MzNcaGljaFxmMVxkYmNoXG TyGIybF5xwEfNvLgUjIcq5 YIDwfEPcFNNyXzu6XTWkhR GdXFCGuEflnJ1rKLXewSjs zH5vsMS4SRAlpiUtuTPPbZ 6lYOWOtS4cQhRsESAyGdM8 LTcxNjNccGFyfX0= CPT Code(s) (test code y6lanSZyDMGzdAT6BgGsKU = 3357) Bnz2ltq0SstMAggTLzTSqq xLPxcdNddo71eNI8wI02LD 7rLETiPfM2JBGxffE2Iij5 BBPvWMTroOUmD409n6qso1 nxkzZacBE3kHdqYTFyAYTr YWluXGZzMjAgODgzMDUgWD HfIKy3VyDhGKixHIVfpp9= CLINICAL HISTORY (test y6ishTQsQVSriFO1UgZxSG code = 3356) Wpe8ord6NekYQakUOvESna jPGhcjNxbd33bDM6vK50NC 8hDPOjRrE7UYRnqvY7Bte8 ZTJtHFQcxDSiG186z7apn8 qvacAcjDO1vDnyKYOuWHOt JExuLHPdRcNdOOmuJkP0pD SocMtwAETtd5FawKXtjOLo u333UBGso30hqBK3GEVtd0 k7cIWvhHThHSIdopZvGCvw zPL8xxVryHKmyG7ksE9oRL EzsNufSqIcz31ypWGon08p ISPjl0WhU2zlnBBwUOQwpx Jjc2PyZt5zkTkgiQ6mvHFe fPAiHWMjtQvxCILcg0BuE1 UgXHBhcn0= SPECIMEN SOURCE (test p4vifBXsDVWjwQO4YyFbNC code = 3377) Iht6cxz6IttGPvkZBtHRik wMDjkwKccv99wYL4iS63RI 0pVHEgDfA4ZVDjzrC2Rgv5 DTNrGIBzeCEmC941t2big6 dszwUkaFJ1fNzlWZCuPSWt IKuyJGHpLlZkAI6tR13lpF K5rMDtaSXfPLUgHtIzCRFv JP87MeYHQkRGj33cYEowHH J9 GROSS DESCRIPTION (test q5vxuUQeEZHiyCK7FvYlSL code = 3366) Jrt7fwk7KqcXJdeKTbXZtp aPWrtkEorz84iZJ3lO80ZF 6wRBRbWaH1RAKslpQ8Amv6 OXQtKDFfsDJcR289p8wgz2 uizrUosYY5gRgeOQXdVNWv HAxsVCCeVwSvBP1iAXlgTC PyEEFmeXShQAgxOGEcA9Wo ppOmUFrdSWNyK29awEOamt WjMUpzuXiwFn6uvKUyhX1s wDTgDWasBBY3lRMeYBX4yh EvLPArCD25BNxzMT46sCVb JGWmIQVeLRDrh57clQQ1kG LgtKOuXQFjDaBlHJUpCW35 Xw7eXQDyJ99kg7lubCQbr0 VqDCIoAYqdGG60WAmoKB3t VUKtWZUdEMebOA16VI8qUW Euhn93pRz7VRD6jBFgrRYf e4dkW2dkkGDlAl8dRUyoeE QleNVmBcBDcEEmcVB7BDNo gF0gBYTqZFN1XGZspVwynZ MzJJLfBOlmvCCsU3M3kD2p IbPyIDWudsucMRGaTj6rHG hlIHNwZWNpbWVuIGlzIHJl C3MiclYaARrgWEPbU70wyQ DtyzVdHGpkaLrmFn2rgJDi oG3kvXIgTGyjIDP8uUFpIQ Y6prBlDLPyTU88DJxtXE67 nDSsTZKrLVRlBHPsNa3uPD MbODl2PNHztwMij0JtKK8e REQwJU71MQeqASE7WXEcM5 2eEgDkJ43awmUom0OlYf4l EGP4xOSwYSOpoLoqtRmkjt AzXLO0yUsjB7QjGAYkt7Mu ARGwT7Bde44xISXhmvOqe5 IpmEl1cRYlHDnaENCzLAOh aNDyJCWmT7CrB4kcsFKjyF fsfh9sKUWqH2FwJMSgdx6= MICROSCOPIC DESCRIPTION o6muqUZxJUAihON6UhMyXF (test code = 3371) Sfx9dcs8NegUUlaHQzEJvm iQXxykLite20gKV5fX98BF 2xCCGgQzB6SRWqxwF7Rio1 UZPcRQLdyMTqV607e7cdx9 rjizHqnHS5qVorBYWzCZFs UFknFMSpJcMpCN4EVzWGOE Waq2UrNYRfOLnbTST1 Gross assessment was [facility] performed at (test [facility], Department = 2777) of Pathology, [address] [place] [address], Technical component was [facility] performed at ([facility], = 2778) Department of Pathology, [address] [place] [address], [address] [facility] was performed at ([facility], Department code = 2779) of Pathology, [address] [place] [address], [facility] [id number] 09:25:00 Test Item Value Reference Range Interpretation Comments Case Report (test code Surgical Pathology = 104) Report Case: [id number] Authorizing Provider: Laura Nguyen MD Collected: 09/26/2020 07:56 AM Ordering Location: [address] Med/Surg Received: 09/26/2020 08:55 AM Pathologist: Hilda Mack MD Specimens: A) - Soft Tissue, Debridement, LEFT FOOT BONE CLEAN MARGIN. B) - Bone, LEFT FOOT 5TH METATARSAL HEAD. DIAGNOSIS (test code = [id number] 3220) FuZzEwMzNcZnRuYmpcdWMx IHtccnRmMVxlcGljOTIwMl wgxaYiETJjkKZnP1Sgkuci RQguUA0fQX5onUwpeSAzrE ZhMOSpLjPmx9ffy055eEMz u6lwMOVYudscmCf2pBtbN4 7ep5N2ZvhcR07yxKVoZHgg bGFpblxmczIwIEEuIEJPTk TeHWgXVqXeHf3CLDJSQUOP HqXDMVHDSO0zCQHSS7DSJP bkcHZtUBNzND4oWg2XXFRO UhQoKqlHBu2SW68YPUBIOH CMAEJMJ1HXWStiEzLWMCGX OoRcAi7QTLJTNAHCNQ0YVX VPTVlFTElUSVNccGFyXHBh drAOBfNZZ44WSYJAOTCKMV TXC6GxSGFARM0UINPMMWNS THlpKDRJDAqjZH7BVTZGLG gGRqaouEHmFWNmTS3bTFRI LPNdXP1YBKSOIt3JNOBhH3 GMBY2EULDXNFFQBnJwvRUx mSapseYyPKfsv9OiVIdbBD SrWS7wxIacNJWkTI9dBXWi O4yhlE6audj6OyHjTAPlKk W0XHMsqmF9Pgd9QFRrNPyz e7nqd2BrWZLoGWg5rMjaFu JfPOXgn4nvieBwIfSyALXo MJJoBQQxqYCtO999u9mnz5 pxuwGzeBW2UVXhSPD9ZQsn gyFeslO7OVfhzJDvMtJ2SQ tccmVkMFxncmVlbjBcYmx1 WFMlF032MUA5iZbpa6kyPA J8XVTgATArEsHhVu7hfJQz K958RLCbOADPPGYgtTy5TM OhxpYvnmKgoLBPu328Y725 q0clCPXtgpNzqRxKpidcw4 hlI385DVRayFFhriUxNuHb LJAnuOFawXA5TERdIR2rrk cxARlzXMjwEQEftyW3GOMz cJCeW1LdCLQqXD0zqrhtPZ N2MNrsRDNtBVO5YuObYHFy c8Bpqha5YwWdxs7rfj27FN R1r4BuoDwsHYD1ZPV3PdQc Ob5efPTqNLTvWA0xImIddH NfVZFaxf05hHsqLFoaWUY2 ZRBqakAsr5Ifo8uhBmBslh QtR1udG5OlGMKgDQWyPUTt WhOwswAxp8Nkz8GboIOopD k5j8rxUXCvXWFhkBhnu5tj BBA4JKOdyHKmD4gkdN5iKK QfWW9ijzdzf3xvHNliVMjc CYIvpCC7hgG7ILYsmYMzY3 QjqC0hMVCuEYodNOKdtcv8 CqCrDt5tdVJnxPepIXyeIm twYWdlXHBnbmNvbnRccGdu ZGVjXHBsYWluXHBsYWluXG YwXGZzMjRccWxcbGFuZzEw MzNcaGljaFxmMVxkYmNoXG WeFHkyM8ogSzHoKrDwEnn2 SLIxrLRxCCUnCnv1THFooS ZrCPSTfPbtkY4pUJGakPph xB8rdUL6ESYkngLlsHFExY 9iGPNIwW1lZaGcYVPeNbS0 LTcxNjNccGFyfX0= CPT Code(s) (test code q1jchHOhYDGqfPV0NpSrNI = 3357) Ytg4cve5ZwlMKqpKKtUNyb kAJzoaLehr67gHZ2cS65IY 6jEFFoVrK0KXTjsaK4Zbr2 CLUsVMWahMLdP896p6kky2 sziwJwjVY3wUheAGKjUYWu YWluXGZzMjAgODgzMDUgWD UhKHz7MwFdRKzaRXQeuk8= CLINICAL HISTORY (test u7clzEHiMVNniOR3UtBrVE code = 3356) Wwi5xgx7JdmSYiaYZbBAil nKUwteLhfy60xNG1gX13SL 6tDTFzJfW8CJFqliP6Axh8 CETeEJJssYSmR556c9ozv0 wqhvDizHO0jLegUIXdNENk OYskAGQfJkIoCWyjDfI5uI SktRtsZTMpm7KiqXUkqIQa j442SUAgl04kkDY8NPUlm6 e7vGDxjBXoKYErhvEfQTjs nCM7loFfqXDjdC7neD9lBD JxvGrxSyZkv23zkAEbb65z ITIzg5HzT7acxAHkTKOxqj Fcd5AjHz4abYesyM3gcALq jUYoLFSgdIpfVKPdb6XgI2 UgXHBhcn0= SPECIMEN SOURCE (test p7iziKEmVGJmjIK8YnOvER code = 3377) Wsd0nhi8NzgUHkyFEuSVap qNIzsaUrxm77xUT2cT78JI 3kYRTlJpB8MGXxuuY0Iua1 OOUbUVKwjFZrJ345o6asg5 sngpCzuWS3mNmqVETdLJSp XZqrIDDuYyMuHW2mD44yyC W5cUDvwFSmHVOlJqOdWVYh SY35BlMIXgGLj38uKNwgRG J9 GROSS DESCRIPTION (test q4uuyPJcBTFgdUU7TdGcWA code = 3366) Yhf0prv4YyaLMeqEYtDPos dMLuyxGzns77mXC8bJ52SV 8uBWBdOvG2ETGpcnE1Pwh7 LITtQBWpjNGdM603m1oas0 flcjXecSR0vGtsHAQhTXAo TOkjVEWvJtIkKI1oBYvnLN OhCHSqrFEeSLocTOEdD5Gs wnPzLKmnCLUiU85muSBgdm IpPSbvhNkhFz5xfNZniI2i dYQgCJodFZQ3gWWzLNW5od SiLGNqFV67CUzzLJ49zPNb LLShDKAyDGXkv48ilCL9iF UhsZTdNTUbWpRqYVLePA43 Qa4jXJRiZ28uo3qzdWBmq9 KiERRtXNfuRF36IKtgUE7d JBBvYHPlYDvsQP83CJ6fZD Rtlr17bSs4SKE3pTBlqZCv i8mmN4runRAqQa9kPYjxcR ZlhRTjGsHApRXehOM9KBJu nO3oUDYbUDL1HSXknMffmP FeFSOpJPknwANcE9P7zE2c AnKwEPCvptrlTXDhCb7kWM hlIHNwZWNpbWVuIGlzIHJl T4CbkuRpMXczEFQkU94zhT XfmlCtMJylfIkcHc5diSPi fA2orNCuFQuoQSR8zOAnOJ A3zcVrPTQtIN48WDneYU80 zKLmZVVsLQPhHLHgTv1sAT OtONy8YXReteGyk0LsAB9s NJXwFV40MBzgTIU5VUNlY5 6gOlYoH41gwxRak3KlUw0x BKK7bRFxLSIijPiqmIrszl YgAAK8wBaqJ7WlTAApi4Tl KBJeR6Ctc19hBMAumtPvh2 ZbgBb1fEOsHSykXCUnMMKd eCCmRYFcP2WkE2qoxEJwdX haph0lFZUhM7FoKTFipc8= MICROSCOPIC DESCRIPTION f2wwtIAfPGIdyJX9YnQvWP (test code = 3371) Ibm8xmi6TsbHPqlKQtRNvy nYBiaiAwnj79uNK6dH08NZ 3lKDMfPyU2ADKswoA1Wxn0 QIBkPVMszIRmY277q6vad4 xdinScdXX6dJcvKRAbPRFm RGokWWWfPqOcFB8UVaKTOT Lyr9BaEDNyRNsgKOR9 Gross assessment was [facility] performed at (test code Hospital, Department = 2777) of Pathology, [address] [place] [address], Technical component was [facility] performed at (test code [facility], = 2778) Department of Pathology, [address] [place] [address], Professional component [facility] was performed at ([facility], Department code = 2779) of Pathology, [address] [place] [address], [facility] HospitalTissue [id number] 09:25:00 Test Item Value Reference Range Interpretation Comments Case Report (test code Surgical Pathology = 104) Report Case: [id number] Authorizing Provider: Laura Nguyen MD Collected: 09/26/2020 07:56 AM Ordering Location: [address] Med/Surg Received: 09/26/2020 08:55 AM Pathologist: Hilda Mack MD Specimens: A) - Soft Tissue, Debridement, LEFT FOOT BONE CLEAN MARGIN. B) - Bone, LEFT FOOT 5TH METATARSAL HEAD. DIAGNOSIS (test code = d6qzbEKeJVAfh3lmHZZgfG 3220) FuZzEwMzNcZnRuYmpcdWMx IHtccnRmMVxlcGljOTIwMl anzrUsLDQgvOMzW8Tdjuwj GNbsXN1mSL5tdNekhVLykI ZzUTXxJdTmy1evl500sIRj z4heGGIUnefckPg7xEcqS1 4kh4B2BphlF92hzBDjYWfv bGFpblxmczIwIEEuIEJPTk OdRArTReFlAj9CGBJSLNIE FiGHIFFHLL9iXAAHU9SGWE vdwYQuHXUzSD7tHb8HGNYS HnRgDceTAd1QG15OLOKOMB BUANYXT7IAUQypDeVWYZAJ UuCdOu2ADWRZXZIDSB7IPL VPTVlFTElUSVNccGFyXHBh zoTYBfKNA14TOLQPKFZFTF BRP5JnXDXKUY5VKOOKXORT OBuiFHGQQEgfOO2EWDQZVQ cZVcpqaSSrDUCaAH3xHZKZ BWKrTK4TBYQDYo0TMVQvI1 EYBR7AAWTCHQXBRhZvuWUn lDvolvDpSZive0KnRObuAY MuNW5zzJrkXKSeIH5oCWPh P5mrsV5ciow6JpPwHGFoMt P1WLEafyQ8Cre7WXJzKKuu j7dee9TbELHkNEy6zOksUb ZbWFDmk0irimHjKkGxAEWc OBQqIELfnLXbC104t4bfw3 moxdFgdHB7ZOXtZPY4JZfr hbUmnaO6TDccqLXvKpP3UI tccmVkMFxncmVlbjBcYmx1 SUDbX023CCK5wLwnz9nmZE N8HYOiXTGmQxRiDc8vhSSl B584DYElNXFODAMrmJg1IN MadaDmifWpfOOXu285L078 o4kiUOIqgnDolBnCtgcco2 msI583VGNadHPrvqQwQwAe RJOqjSNsoTV1SGYpSL5kqd olBMbiBJbxFDJzayV5RTXt cVZmG9NfVFJlVH5rrmnlKE Y3KTlyOFFaYSK3NsEmQGUr m7Kdjsu8PaMgxi3fza27WZ T7r2DtqIpkEVG0CDQ3QaLt Lj1fyUWrNRQeMA1vYqQclK AyBSLycq45eRzqNTzvOLT7 ZMYnmoBfz6Lwn3grCzOogw OcY5ggD3LwKWFxIQIiBXYo QhZsbeIug9Ycv6OqzNLgsT b2d0qmRKBuBEBapWokw5do OYM0YYHmrNWvJ2sqdG2tYI KqYY0zgpbvd0syZBrxSTla QMYgfBM6rxL5LPOuvMYsT7 JheE0lADCdGPrvPOBvqip6 GlAsFv7qjIWcjBdcHOmtXg twYWdlXHBnbmNvbnRccGdu ZGVjXHBsYWluXHBsYWluXG YwXGZzMjRccWxcbGFuZzEw MzNcaGljaFxmMVxkYmNoXG KlBVhlW1tlPePfOrPrVtc3 EGMemZGjBPEoVxa7FTLssZ UgNXOQqIpyiP2oHEYxuGho fJ6rjIO9GJQflcVccUFSbS 7pOKINlN0tPxAvXZWqVcS7 LTcxNjNccGFyfX0= CPT Code(s) (test code n6bhbHTfBPKrrFU7MnFgJA = 3357) Leb5byq8OidAUzlVJiXUze rVJchvHfaw41iBB8jO85HH 9vNVVqRfE9NVXbhaQ0Qqc3 BTPqTPFfdWNdY454u9kqw1 vrkxPbwIZ3zIjxPWHwLBUv YWluXGZzMjAgODgzMDUgWD KuKQk1OmQzKLmaQGPhop5= CLINICAL HISTORY (test p9ghlQTpVMDuqEQ2GkSlSL code = 3356) Wax1ago7WgbMYenZAdSFdo qCXddwEhto75mGV4wH82FT 0pLKLrMeA5SXPmdiP7Saz3 BHZcXZGhwKNwC424e4ghq1 acrvLwuIN2gKpqNMObNRVo EIliOEVcZrYrXJhxGkO7dF KfpPbnUWTlu1XoeHQleXMg b229LZRvd64nmPT3OJPdf7 t7nIBycMWeXCWdkoEiICmv dCC6seZshREvzU1iiH6kMZ XvxIxlNkPdb30muCMba07i KOSpe7MnY9kdsRNnCGMmjc Pxn0OcJt2lhGjusU2wmYYu oULiWYWefCbmODYwz4TlX0 UgXHBhcn0= SPECIMEN SOURCE (test t1kfkRVbOMJsxUE7ApYnKM code = 3377) Qjy4bnw1YlfAYlrXLpAMqk dHPpctSarh06pOS2rE32SW 8rCOGpMzW5RFRzpbI3Rpm6 RRTeJWWtgBFtS281z9gel4 siyoWspAI5yCbeYXIhSTQy HVbbRJXzStBaSV6uX38doX D7pBMitRUoCSKzXhLlQLMb UY37SeLDAhXPr70wVDqnDP J9 GROSS DESCRIPTION (test v1ielQBpMZVitRB6EkUnQL code = 3366) Iqe3nmq7WqkSVsuAAuAUci mLKjpuDqpd07iAJ7pA32GJ 2cEBVtTmH7GCLnvgE6Biu0 ISMyORWbuPFzO207r2zlz2 gvahGvwOQ7iDahTSGxTWDh KXenLSVvUwPhGZ4sCPbpPW QaYMKaiBRkRUjuOMRzR9Oh zkYaENckOFOqA50wnFAtfa CjYKmrdClzTl3duWHjkJ0w zGMlZVfrRUV0cXGeDHD6gr CtZSPiUB08HVojMA19zRUe MAAeLRXiBLGao35paYF8iE MjlTKaBXJwJdVhLCCfHX04 Bx9bAHSyV26yp5odvJImc5 SpCJThRQyzIH49KJpaBS8u FOIpLFFzOOwiTG51SY3sFY Yjdp82oJe3ZVF6tDNqpMZn d1tbL6qjiFFiLe6jJFeobK QfnINjTqLSpLVgdCQ8UCAa tC2mFHZsJMN4ODFpgBlshJ IyPMAsUUbvqFCtT6J0nO7l SqYvFARfeyquVLIhVi1iOU hlIHNwZWNpbWVuIGlzIHJl W5WhksOgIKhsALAzF64ikO TqcfZsUMexkFznZt9obJQj zW8gvIRxXSndQXW9mDChEP Q8sePqKLRgBY60MZlxWD94 kKLmJPUqVCBjQAJzKd2jOT ZgJDy5GSDzusFfn9ByFI6z QHBeAR17POpvXBF0LPDdR2 5rRzGlG48iriPrg6FlNo8i DMU3eYZlZEZhxAoanPiqna TyKER6kJwrS3LiNPEyq4Zm OJAsC3Req81lGBXydyDky0 NrnPw4zJFpLDkyKNKhOPEo oREgYAGhF3WrO8aycOCrnW ryzx0gVEWnN7WpYPNgdv5= MICROSCOPIC DESCRIPTION d1afbLYhUYSkmXV7ZaKiSK (test code = 3371) Sjk2tyb7MtbKLedZVoNLdl wFVmogPqxz23kEY2fY70IY 3oBQYtKjO9AYBwbzC6Uqa5 QTIrJMFllZCfP249j4zug1 dtptXzkAY4eZufAIXtZOMu RGatCJQzMhGmCK4SPnFQUD Xkj2PhSEWxRVmsVND5 Gross assessment was [facility] performed at (test code [facility], Department = 2777) of Pathology, [address] [place] [address], [place] [address], Technical component was [facility] performed at (test code [facility], = 2778) Department of Pathology, [address] [place] [address], Professional component [facility] was performed at ([facility], Department code = 2779) of Pathology, [address] [place] [address], [facility] HospitalTISSUE [id number] 09:25:00Surgical Pathology Report Case: [id number] Authorizing Provider: Laura Nguyen MD Collected: 09/26/2020 07:56 AM Ordering Location: [address] Med/Surg Received: 09/26/2020 08:55 AM Pathologist: Hilda Mack MD Specimens: A) - Soft Tissue, Debridement, LEFT FOOT BONE CLEAN MARGIN. B) -Bone, LEFT FOOT 5TH METATARSAL HEAD. A. BONE, LEFT FOOT CLEAN MARGIN, BIOPSY: - BONE AND FIBROCONNECTIVE TISSUE, NEGATIVE FOR ACUTE OSTEOMYELITISB. BONE, LEFT FOOT 5TH METATARSAL HEAD, AMPUTATION: - ACUTE AND CHRONIC OSTEOMYELITIS Signing Pathologist Direct Phone Line: [phone] signed by Hilda Mack MD on 10/01/2020 at 9:25 [id number] X2, [id number] U9Kybogtuz ulcer of left foot associated with diabetes [...] submitted in B1 after decalcification. [place]/Shyanne-B. Performed. [facility], Department of Pathology, [address] [place] [address], [facility], Department of Pathology, [address] [place] [address], [facility], Department of Pathology, [address] [place] [address], [place] [address], [facility]-Glucose [id number] 12:31:00 Test Item Value Reference Range Interpretation Comments POC-Glucose Meter (test 178 mg/dL 70-110 H : No tified RN/MD: code = 1538) TESTED AT [address] [address]: Flat Screen Worker/Techni cornelia ID = [id number] for Salvatore Ramírez t Lab Interpretation (test Abnormal code = 73437-1) [facility] [id number] 12:31:00 Test Item Value Reference Range Interpretation Comments POC-Glucose Meter (test 178 mg/dL 70-110 H : No tified RN/MD: code = 1538) TESTED AT [place] [address] 478: Flat Screen Worker/Techni cornelia ID = [id number] for Salvatore Ramírez t Lab Interpretation (test Abnormal code = 19215-4) [facility] [id number] 12:31:00 Test Item Value Reference Range Interpretation Comments POC-Glucose Meter (test 178 mg/dL 70-110 H : No tified RN/MD: code = 1538) TESTED AT [address] [address]: Flat Screen Worker/Techni cornelia ID = [id number] for Salvatore Ramírez t Lab Interpretation (test Abnormal code = 18809-3) [facility] [id number] 12:31:00 Test Item Value Reference Range Interpretation Comments POC-Glucose Meter (test 178 mg/dL 70-110 H : No tified RN/MD: code = 1538) TESTED AT [address] [address]: Flat Screen Worker/Techni cornelia ID = [id number] for Salvatore Ramírez t Lab Interpretation (test Abnormal code = 01500-6) [facility] [id number] 12:31:00 Test Item Value Reference Range Interpretation Comments POC-Glucose Meter (test 178 mg/dL 70-110 H : No tified RN/MD: code = 1538) TESTED AT [place] [address] 478: Flat Screen Worker/Techni cornelia ID = [id number] for Salvatore Ramírez Lab Interpretation (test Abnormal code = 13198-2) [facility]-Glucose [id number] 12:31:00 Test Item Value Reference Range Interpretation Comments POC-Glucose Meter (test 178 mg/dL 70-110 H : No tified RN/MD: code = 1538) TESTED AT [place] [address] 478: Flat Screen Worker/Techni cornelia ID = [id number] for Salvatore Ramírez Lab Interpretation (test Abnormal code = 12865-9) [facility]-Glucose [id number] 12:31:00 Test Item Value Reference Range Interpretation Comments POC-Glucose Meter (test 178 mg/dL 70-110 H : No tified RN/MD: code = 1538) TESTED AT [place] [address] 478: Flat Screen Worker/Techni cornelia ID = [id number] for Salvatore Ramírez Lab Interpretation (test Abnormal code = 16747-2) [facility]-GLUCOSE [id number] 12:31:00 Test Item Value Reference Range Interpretation Comments POC-GLUCOSE METER 178 mg/dL 70-110 H : Notified RN/MD: TESTED (BEAKER) (test code AT [address] = 1538) [facility] [address]: Flat Screen Worker/Techni cornelia ID = [id number] for Cony Osborne Basic Metabolic [id number] 06:00:00 Test Item Value Reference Range Interpretation Comments Sodium (test code = 138 meq/L 633-624 9120-2) Potassium (test code 4.3 meq/L 3.6-5.5 = 2823-3) Chloride (test code 101 meq/L 98-106 = 2075-0) CO2 (test code = 31 meq/L 20-29 H 2027-9) BUN (test code = 54 mg/dL 10-26 H 3094-0) Creatinine (test 2.16 mg/dL 0.5-1.2 H code = 2160-0) Glucose (test code = 177 mg/dL 70-110 H 2345-7) Calcium (test code = 8.9 mg/dL 8.5-10.5 10251-0) EGFR (test code = 33 mL/min/1[place] [address]-9) m NOT ACCURATE CREATININE CLEARANCE IN PREDICTING GLOMERULAR FILTRATION RATE . ESTIMATED GFR I S NOT APPLICABLE FOR DIALYSIS PATIENTS. ISSA (test code = Flat Screen Worker ID - ISSA) JBERNOperator ID - JBERNOperator ID - JBERNOperator ID - JBERNOperator ID - JBERNOperator ID - JBERNOperator ID - JBERNOperator ID - JBERNOperator ID - JBERNOperator ID - JBERN Lab Interpretation Abnormal (test code = 22955-1) [facility] Metabolic [id number] 06:00:00 Test Item Value Reference Range Interpretation Comments Sodium (test code = 138 meq/L 255-842 9075-2) Potassium (test code 4.3 meq/L 3.6-5.5 = 2823-3) Chloride (test code 101 meq/L 98-106 = 2075-0) CO2 (test code = 31 meq/L 20-29 H 2028-9) BUN (test code = 54 mg/dL 10-26 H 3094-0) Creatinine (test 2.16 mg/dL 0.5-1.2 H code = 2160-0) Glucose (test code = 177 mg/dL 70-110 H 2345-7) Calcium (test code = 8.9 mg/dL 8.5-10.5 27009-8) EGFR (test code = 33 mL/min/1[place] [address]-9) m NOT ACCURATE CREATININE CLEARANCE IN PREDICTING GLOMERULAR FILTRATION RATE . ESTIMATED GFR I S NOT APPLICABLE FOR DIALYSIS PATIENTS. ISSA (test code = Flat Screen Worker ID - ISSA) JBERNOperator ID - JBERNOperator ID - JBERNOperator ID - JBERNOperator ID - JBERNOperator ID - JBERNOperator ID - JBERNOperator ID - JBERNOperator ID - JBERNOperator ID - JBERN Lab Interpretation Abnormal (test code = 12447-7) [facility] Metabolic [id number] 06:00:00 Test Item Value Reference Range Interpretation Comments Sodium (test code = 138 meq/L 782-553 2256-2) Potassium (test code 4.3 meq/L 3.6-5.5 = 2823-3) Chloride (test code 101 meq/L 98-106 = 2075-0) CO2 (test code = 31 meq/L 20-29 H 2027-9) BUN (test code = 54 mg/dL 10-26 H 3094-0) Creatinine (test 2.16 mg/dL 0.5-1.2 H code = 2160-0) Glucose (test code = 177 mg/dL 70-110 H 2345-7) Calcium (test code = 8.9 mg/dL 8.5-10.5 41538-2) EGFR (test code = 33 mL/min/1[place] [address]-5) m NOT ACCURATE CREATININE CLEARANCE IN PREDICTING GLOMERULAR FILTRATION RATE . ESTIMATED GFR I S NOT APPLICABLE FOR DIALYSIS PATIENTS. ISSA (test code = Flat Screen Worker ID - ISSA) JBERNOperator ID - JBERNOperator ID - JBERNOperator ID - JBERNOperator ID - JBERNOperator ID - JBERNOperator ID - JBERNOperator ID - JBERNOperator ID - JBERNOperator ID - JBERN Lab Interpretation Abnormal (test code = 20718-8) [facility] Metabolic [id number] 06:00:00 Test Item Value Reference Range Interpretation Comments Sodium (test code = 138 meq/L 096-329 7677-2) Potassium (test code 4.3 meq/L 3.6-5.5 = 2823-3) Chloride (test code 101 meq/L 98-106 = 2075-0) CO2 (test code = 31 meq/L 20-29 H 2027-9) BUN (test code = 54 mg/dL 10-26 H 3094-0) Creatinine (test 2.16 mg/dL 0.5-1.2 H code = 2160-0) Glucose (test code = 177 mg/dL 70-110 H 2345-7) Calcium (test code = 8.9 mg/dL 8.5-10.5 66009-8) EGFR (test code = 33 mL/min/1.73 [place] [address]-6) m NOT ACCURATE CREATININE CLEARANCE IN PREDICTING GLOMERULAR FILTRATION RATE . ESTIMATED GFR I S NOT APPLICABLE FOR DIALYSIS PATIENTS. ISSA (test code = Flat Screen Worker ID - ISSA) JBERNOperator ID - JBERNOperator ID - JBERNOperator ID - JBERNOperator ID - JBERNOperator ID - JBERNOperator ID - JBERNOperator ID - JBERNOperator ID - JBERNOperator ID - JBERN Lab Interpretation Abnormal (test code = 84510-5) [facility] Metabolic [id number] 06:00:00 Test Item Value Reference Range Interpretation Comments Sodium (test code = 138 meq/L 346-098 3384-2) Potassium (test code 4.3 meq/L 3.6-5.5 = 2823-3) Chloride (test code 101 meq/L 98-106 = 2075-0) CO2 (test code = 31 meq/L 20-29 H 2028-9) BUN (test code = 54 mg/dL 10-26 H 3094-0) Creatinine (test 2.16 mg/dL 0.50-1.20 H code = 2160-0) Glucose (test code = 177 mg/dL 70-110 H 2345-7) Calcium (test code = 8.9 mg/dL 8.5-10.5 00090-2) EGFR (test code = 33 mL/min/1.73 [place] [address]-2) m NOT ACCURATE CREATININE CLEARANCE IN PREDICTING GLOMERULAR FILTRATION RATE . ESTIMATED GFR I S NOT APPLICABLE FOR DIALYSIS PATIENTS. ISSA (test code = Flat Screen Worker ID - ISSA) JBERNOperator ID - JBERNOperator ID - JBERNOperator ID - JBERNOperator ID - JBERNOperator ID - JBERNOperator ID - JBERNOperator ID - JBERNOperator ID - JBERNOperator ID - JBERN Lab Interpretation Abnormal (test code = 89057-2) [facility] Metabolic [id number] 06:00:00 Test Item Value Reference Range Interpretation Comments Sodium (test code = 138 meq/L 497-953 5626-2) Potassium (test code 4.3 meq/L 3.6-5.5 = 2823-3) Chloride (test code 101 meq/L 98-106 = 2075-0) CO2 (test code = 31 meq/L 20-29 H 2027-11) BUN (test code = 54 mg/dL 10-26 H 3094-0) Creatinine (test 2.16 mg/dL 0.50-1.20 H code = 2160-0) Glucose (test code = 177 mg/dL 70-110 H 2345-7) Calcium (test code = 8.9 mg/dL 8.5-10.5 65840-4) EGFR (test code = 33 mL/min/1.[place] [address]-2) m NOT ACCURATE CREATININE CLEARANCE IN PREDICTING GLOMERULAR FILTRATION RATE . ESTIMATED GFR I S NOT APPLICABLE FOR DIALYSIS PATIENTS. ISSA (test code = Flat Screen Worker ID - ISSA) JBERNOperator ID - JBERNOperator ID - JBERNOperator ID - JBERNOperator ID - JBERNOperator ID - JBERNOperator ID - JBERNOperator ID - JBERNOperator ID - JBERNOperator ID - JBERN Lab Interpretation Abnormal (test code = 24110-5) [facility] [id number] 06:00:00 Test Item Value Reference Range Interpretation Comments Sodium (test code = 138 meq/L 528-422 5301-2) Potassium (test code 4.3 meq/L 3.6-5.5 = 2823-3) Chloride (test code 101 meq/L 98-106 = 2075-0) CO2 (test code = 31 meq/L 20-29 H 9) BUN (test code = 54 mg/dL 10-26 H 3094-0) Creatinine (test 2.16 mg/dL 0.50-1.20 H code = 2160-0) Glucose (test code = 177 mg/dL 70-110 H 2345-7) Calcium (test code = 8.9 mg/dL 8.5-10.5 95497-2) EGFR (test code = 33 mL/min/1.[place] [address]-4) m NOT ACCURATE CREATININE CLEARANCE IN PREDICTING GLOMERULAR FILTRATION RATE . ESTIMATED GFR I S NOT APPLICABLE FOR DIALYSIS PATIENTS. ISSA (test code = Flat Screen Worker ID - ISSA) JBERNOperator ID - JBERNOperator ID - JBERNOperator ID - JBERNOperator ID - JBERNOperator ID - JBERNOperator ID - JBERNOperator ID - JBERNOperator ID - JBERNOperator ID - JBERN Lab Interpretation Abnormal (test code = 97643-2) [facility] METABOLIC [id number] 06:00:00 Test Item Value Reference Range Interpretation [...] S NOT APPLICABLE FOR DIALYSIS PATIEN TS. Flat Screen Worker ID - JBERNOperator ID - JBERNOperator ID - JBERNOperator ID - JBERNOperator ID - JBERNOperator ID - JBERNOperator ID - JBERNOperator ID - JBERNOperator ID - JBERNOperator ID - [id number] 05:42:00 Test Item Value Reference Range Interpretation Comments Magnesium (test code = 2.2 mg/dL 1.5-3 29323-5) ISSA (test code = ISSA) Flat Screen Worker ID - JBERNOperator ID - JBERNOperator ID - JBERNOperator ID - JBERN Lab Interpretation Normal (test code = 95532-8) [facility]2021-07-04 05:42:00 Test Item Value Reference Range Interpretation Comments Magnesium (test code = 2.2 mg/dL 1.5-3 01545-5) ISSA (test code = ISSA) Flat Screen Worker ID - JBERNOperator ID - JBERNOperator ID - JBERNOperator ID - JBERN Lab Interpretation Normal (test code = 54484-9) [facility]2021-07-04 05:42:00 Test Item Value Reference Range Interpretation Comments Magnesium (test code = 2.2 mg/dL 1.5-3 31874-7) ISSA (test code = ISSA) Flat Screen Worker ID - JBERNOperator ID - JBERNOperator ID - JBERNOperator ID - JBERN Lab Interpretation Normal (test code = 73880-3) [facility]2021-07-04 05:42:00 Test Item Value Reference Range Interpretation Comments Magnesium (test code = 2.2 mg/dL 1.5-3 26329-2) ISSA (test code = ISSA) Flat Screen Worker ID - JBERNOperator ID - JBERNOperator ID - JBERNOperator ID - JBERN Lab Interpretation Normal (test code = 01218-5) [facility]2021-07-04 05:42:00 Test Item Value Reference Range Interpretation Comments Magnesium (test code = 2.2 mg/dL 1.5-3.0 95936-4) ISSA (test code = ISSA) Flat Screen Worker ID - JBERNOperator ID - JBERNOperator ID - JBERNOperator ID - JBERN Lab Interpretation Normal (test code = 52414-7) [facility]2021-07-04 05:42:00 Test Item Value Reference Range Interpretation Comments Magnesium (test code = 2.2 mg/dL 1.5-3.0 48373-4) ISSA (test code = ISSA) Flat Screen Worker ID - JBERNOperator ID - JBERNOperator ID - JBERNOperator ID - JBERN Lab Interpretation Normal (test code = 15097-5) [facility]2021-07-04 05:42:00 Test Item Value Reference Range Interpretation Comments Magnesium (test code = 2.2 mg/dL 1.5-3.0 94215-1) ISSA (test code = ISSA) Flat Screen Worker ID - JBERNOperator ID - JBERNOperator ID - JBERNOperator ID - JBERN Lab Interpretation Normal (test code = 31856-5) [facility] Test Item Value Reference Range Interpretation Comments MAGNESIUM (BEAKER) (test code = 2.2 mg/dL 1.5-3.0 627) Flat Screen Worker ID - JBERNOperator ID - JBERNOperator ID - JBERNOperator ID - JBERNCBC with platelet count + automated [id number] 05:17:00 Test Item Value Reference Range Interpretation Comments WBC (test code = 6690-2) 7.6 See_Comment [A utomated message] The system [employer] generated this result transmitted ref erence range: 4.0 - 10 .0 K/L. The refe rence range was not u sed to interpret this result as normal/abnor mal. RBC (test code = 789-8) 3.54 See_Comment L [Au tomated message] The system [employer] generated this result transmitted ref erence range: 4.20 - 5 .80 M/L. The refe rence range was not u sed to interpret this result as normal/abnor mal. MCHC (test code = 786-4) 31.0 See_Comment L [A utomated message] The system [employer] generated this result transmitted ref erence range: [...] code = 230 See_Comment [Aut omated message] 967-3) The system [employer] generated this result transmitted ref erence range: 150 - 43 0 K/CU MM. The referen ce range was not u sed to interpret this result as normal/abnor mal. MPV (test code = 11.1 fL 6-11.5 06999-4) nRBC (test code = 413) 0 See_Comment [Aut omated message] The system [employer] generated this result transmitted ref erence range: [...] See_Comment [Aut omated message] 670) The system [employer] generated this result transmitted ref erence range: 1.80 - 8 .00 K/L. The refe rence range was not u sed to interpret this result as normal/abnor mal. # Lymphs (test code = 0.97 See_Comment L [Auto mated message] 414) The system [employer] generated this result transmitted ref erence range: 1.48 - 4 .50 K/L. The refe rence range was not u sed to interpret this result as normal/abnor mal. # Monos (test code = 0.74 See_Comment [Autom ated message] 415) The system [employer] generated this result transmitted ref erence range: 0.00 - 1 .30 K/L. The refe rence range was not u sed to interpret this result as normal/abnor mal. # Eos (test code = 416) 0.21 See_Comment [Au tomated message] The system [employer] generated this result transmitted ref erence range: 0.00 - 0 .50 K/L. The refe rence range was not u sed to interpret this result as normal/abnor mal. # Baso (test code = 417) 0.05 See_Comment [A utomated message] The system [employer] generated this result transmitted ref erence range: 0.00 - 0 .20 K/L. The refe rence range was not u sed to interpret this result as normal/abnor mal. Immature 1 % 0-0 H Granulocytes-Relative (test code = 2801) Lab Interpretation (test Abnormal code = 72680-0) [facility] with platelet count + automated [id number] 05:17:00 Test Item Value Reference Range Interpretation Comments WBC (test code = 6690-2) 7.6 See_Comment [A utomated message] The system [employer] generated this result transmitted ref erence range: 4.0 - 10 .0 K/L. The refe rence range was not u sed to interpret this result as normal/abnor mal. RBC (test code = 789-8) 3.54 See_Comment L [Au tomated message] The system [employer] generated this result transmitted ref erence range: 4.20 - 5 .80 M/L. The refe rence range was not u sed to interpret this result as normal/abnor mal. MCHC (test code = 786-4) 31.0 See_Comment L [A utomated message] The system [employer] generated this result transmitted ref erence range: [...] See_Comment [Aut omated message] 777-3) The system [employer] generated this result transmitted ref erence range: 150 - 43 0 K/CU MM. The referen ce range was not u sed to interpret this result as normal/abnor mal. MPV (test code = 11.1 fL 6-11.5 01002-2) nRBC (test code = 413) 0 See_Comment [Aut omated message] The system [employer] generated this result transmitted ref erence range: [...] See_Comment [Aut omated message] 670) The system [employer] generated this result transmitted ref erence range: 1.80 - 8 .00 K/L. The refe rence range was not u sed to interpret this result as normal/abnor mal. # Lymphs (test code = 0.97 See_Comment L [Auto mated message] 414) The system [employer] generated this result transmitted ref erence range: 1.48 - 4 .50 K/L. The refe rence range was not u sed to interpret this result as normal/abnor mal. # Monos (test code = 0.74 See_Comment [Autom ated message] 415) The system [employer] generated this result transmitted ref erence range: 0.00 - 1 .30 K/L. The refe rence range was not u sed to interpret this result as normal/abnor mal. # Eos (test code = 416) 0.21 See_Comment [Au tomated message] The system [employer] generated this result transmitted ref erence range: 0.00 - 0 .50 K/L. The refe rence range was not u sed to interpret this result as normal/abnor mal. # Baso (test code = 417) 0.05 See_Comment [A utomated message] The system [employer] generated this result transmitted ref erence range: 0.00 - 0 .20 K/L. The refe rence range was not u sed to interpret this result as normal/abnor mal. Immature 1 % 0-0 H Granulocytes-Relative (test code = 2801) Lab Interpretation (test Abnormal code = 38462-6) [facility] with platelet count + automated [id number] 05:17:00 Test Item Value Reference Range Interpretation Comments WBC (test code = 6690-2) 7.6 See_Comment [A utomated message] The system [employer] generated this result transmitted ref erence range: 4.0 - 10 .0 K/L. The refe rence range was not u sed to interpret this result as normal/abnor mal. RBC (test code = 789-8) 3.54 See_Comment L [Au tomated message] The system [employer] generated this result transmitted ref erence range: 4.20 - 5 .80 M/L. The refe rence range was not u sed to interpret this result as normal/abnor mal. MCHC (test code = 786-4) 31.0 See_Comment L [A utomated message] The system [employer] generated this result transmitted ref erence range: [...] See_Comment [Aut omated message] 777-3) The system [employer] generated this result transmitted ref erence range: 150 - 43 0 K/CU MM. The referen ce range was not u sed to interpret this result as normal/abnor mal. MPV (test code = 11.1 fL 6-11.5 61899-0) nRBC (test code = 413) 0 See_Comment [Aut omated message] The system [employer] generated this result transmitted ref erence range: [...] See_Comment [Aut omated message] 670) The system [employer] generated this result transmitted ref erence range: 1.80 - 8 .00 K/L. The refe rence range was not u sed to interpret this result as normal/abnor mal. # Lymphs (test code = 0.97 See_Comment L [Auto mated message] 414) The system [employer] generated this result transmitted ref erence range: 1.48 - 4 .50 K/L. The refe rence range was not u sed to interpret this result as normal/abnor mal. # Monos (test code = 0.74 See_Comment [Autom ated message] 415) The system [employer] generated this result transmitted ref erence range: 0.00 - 1 .30 K/L. The refe rence range was not u sed to interpret this result as normal/abnor mal. # Eos (test code = 416) 0.21 See_Comment [Au tomated message] The system [employer] generated this result transmitted ref erence range: 0.00 - 0 .50 K/L. The refe rence range was not u sed to interpret this result as normal/abnor mal. # Baso (test code = 417) 0.05 See_Comment [A utomated message] The system [employer] generated this result transmitted ref erence range: 0.00 - 0 .20 K/L. The refe rence range was not u sed to interpret this result as normal/abnor mal. Immature 1 % 0-0 H Granulocytes-Relative (test code = 2801) Lab Interpretation (test Abnormal code = 29927-7) [facility] with platelet count + automated [id number] 05:17:00 Test Item Value Reference Range Interpretation Comments WBC (test code = 6690-2) 7.6 See_Comment [A utomated message] The system [employer] generated this result transmitted ref erence range: 4.0 - 10 .0 K/L. The refe rence range was not u sed to interpret this result as normal/abnor mal. RBC (test code = 789-8) 3.54 See_Comment L [Au tomated message] The system [employer] generated this result transmitted ref erence range: 4.20 - 5 .80 M/L. The refe rence range was not u sed to interpret this result as normal/abnor mal. MCHC (test code = 786-4) 31.0 See_Comment L [A utomated message] The system [employer] generated this result transmitted ref erence range: [...] See_Comment [Aut omated message] 777-3) The system [employer] generated this result transmitted ref erence range: 150 - 43 0 K/CU MM. The referen ce range was not u sed to interpret this result as normal/abnor mal. MPV (test code = 11.1 fL 6-11.5 16989-6) nRBC (test code = 413) 0 See_Comment [Aut omated message] The system [employer] generated this result transmitted ref erence range: [...] See_Comment [Aut omated message] 670) The system [employer] generated this result transmitted ref erence range: 1.80 - 8 .00 K/L. The refe rence range was not u sed to interpret this result as normal/abnor mal. # Lymphs (test code = 0.97 See_Comment L [Auto mated message] 414) The system [employer] generated this result transmitted ref erence range: 1.48 - 4 .50 K/L. The refe rence range was not u sed to interpret this result as normal/abnor mal. # Monos (test code = 0.74 See_Comment [Autom ated message] 415) The system [employer] generated this result transmitted ref erence range: 0.00 - 1 .30 K/L. The refe rence range was not u sed to interpret this result as normal/abnor mal. # Eos (test code = 416) 0.21 See_Comment [Au tomated message] The system [employer] generated this result transmitted ref erence range: 0.00 - 0 .50 K/L. The refe rence range was not u sed to interpret this result as normal/abnor mal. # Baso (test code = 417) 0.05 See_Comment [A utomated message] The system [employer] generated this result transmitted ref erence range: 0.00 - 0 .20 K/L. The refe rence range was not u sed to interpret this result as normal/abnor mal. Immature 1 % 0-0 H Granulocytes-Relative (test code = 2801) Lab Interpretation (test Abnormal code = 43545-4) [facility] with platelet count + automated [id number] 05:17:00 Test Item Value Reference Range Interpretation Comments WBC (test code = 6690-2) 7.6 See_Comment [A utomated message] The system [employer] generated this result transmitted ref erence range: 4.0 - 10 .0 K/L. The refe rence range was not u sed to interpret this result as normal/abnor mal. RBC (test code = 789-8) 3.54 See_Comment L [Au tomated message] The system [employer] generated this result transmitted ref erence range: 4.20 - 5 .80 M/L. The refe rence range was not u sed to interpret this result as normal/abnor mal. MCHC (test code = 786-4) 31.0 See_Comment L [A utomated message] The system [employer] generated this result transmitted ref erence range: [...] See_Comment [Aut omated message] 777-3) The system [employer] generated this result transmitted ref erence range: 150 - 43 0 K/CU MM. The referen ce range was not u sed to interpret this result as normal/abnor mal. MPV (test code = 11.1 fL 6.0-11.5 79358-8) nRBC (test code = 413) 0 See_Comment [Aut omated message] The system [employer] generated this result transmitted ref erence range: [...] See_Comment [Aut omated message] 670) The system [employer] generated this result transmitted ref erence range: 1.80 - 8 .00 K/L. The refe rence range was not u sed to interpret this result as normal/abnor mal. # Lymphs (test code = 0.97 See_Comment L [Auto mated message] 414) The system [employer] generated this result transmitted ref erence range: 1.48 - 4 .50 K/L. The refe rence range was not u sed to interpret this result as normal/abnor mal. # Monos (test code = 0.74 See_Comment [Autom ated message] 415) The system [employer] generated this result transmitted ref erence range: 0.00 - 1 .30 K/L. The refe rence range was not u sed to interpret this result as normal/abnor mal. # Eos (test code = 416) 0.21 See_Comment [Au tomated message] The system [employer] generated this result transmitted ref erence range: 0.00 - 0 .50 K/L. The refe rence range was not u sed to interpret this result as normal/abnor mal. # Baso (test code = 417) 0.05 See_Comment [A utomated message] The system [employer] generated this result transmitted ref erence range: 0.00 - 0 .20 K/L. The refe rence range was not u sed to interpret this result as normal/abnor mal. Immature 1 % 0-0 H Granulocytes-Relative (test code = 2801) Lab Interpretation (test Abnormal code = 06666-8) [facility] with platelet count + automated [id number] 05:17:00 Test Item Value Reference Range Interpretation Comments WBC (test code = 6690-2) 7.6 See_Comment [A utomated message] The system [employer] generated this result transmitted ref erence range: 4.0 - 10 .0 K/L. The refe rence range was not u sed to interpret this result as normal/abnor mal. RBC (test code = 789-8) 3.54 See_Comment L [Au tomated message] The system [employer] generated this result transmitted ref erence range: 4.20 - 5 .80 M/L. The refe rence range was not u sed to interpret this result as normal/abnor mal. MCHC (test code = 786-4) 31.0 See_Comment L [A utomated message] The system [employer] generated this result transmitted ref erence range: [...] See_Comment [Aut omated message] 777-3) The system [employer] generated this result transmitted ref erence range: 150 - 43 0 K/CU MM. The referen ce range was not u sed to interpret this result as normal/abnor mal. MPV (test code = 11.1 fL 6.0-11.5 30457-4) nRBC (test code = 413) 0 See_Comment [Aut omated message] The system [employer] generated this result transmitted ref erence range: [...] See_Comment [Aut omated message] 670) The system [employer] generated this result transmitted ref erence range: 1.80 - 8 .00 K/L. The refe rence range was not u sed to interpret this result as normal/abnor mal. # Lymphs (test code = 0.97 See_Comment L [Auto mated message] 414) The system [employer] generated this result transmitted ref erence range: 1.48 - 4 .50 K/L. The refe rence range was not u sed to interpret this result as normal/abnor mal. # Monos (test code = 0.74 See_Comment [Autom ated message] 415) The system [employer] generated this result transmitted ref erence range: 0.00 - 1 .30 K/L. The refe rence range was not u sed to interpret this result as normal/abnor mal. # Eos (test code = 416) 0.21 See_Comment [Au tomated message] The system [employer] generated this result transmitted ref erence range: 0.00 - 0 .50 K/L. The refe rence range was not u sed to interpret this result as normal/abnor mal. # Baso (test code = 417) 0.05 See_Comment [A utomated message] The system [employer] generated this result transmitted ref erence range: 0.00 - 0 .20 K/L. The refe rence range was not u sed to interpret this result as normal/abnor mal. Immature 1 % 0-0 H Granulocytes-Relative (test code = 2801) Lab Interpretation (test Abnormal code = 44726-7) [facility] with platelet count + automated [id number] 05:17:00 Test Item Value Reference Range Interpretation Comments WBC (test code = 6690-2) 7.6 See_Comment [A utomated message] The system [employer] generated this result transmitted ref erence range: 4.0 - 10 .0 K/L. The refe rence range was not u sed to interpret this result as normal/abnor mal. RBC (test code = 789-8) 3.54 See_Comment L [Au tomated message] The system [employer] generated this result transmitted ref erence range: 4.20 - 5 .80 M/L. The refe rence range was not u sed to interpret this result as normal/abnor mal. MCHC (test code = 786-4) 31.0 See_Comment L [A utomated message] The system [employer] generated this result transmitted ref erence range: [...] See_Comment [Aut omated message] 777-3) The system [employer] generated this result transmitted ref erence range: 150 - 43 0 K/CU MM. The referen ce range was not u sed to interpret this result as normal/abnor mal. MPV (test code = 11.1 fL 6.0-11.5 28143-8) nRBC (test code = 413) 0 See_Comment [Aut omated message] The system [employer] generated this result transmitted ref erence range: [...] See_Comment [Aut omated message] 670) The system [employer] generated this result transmitted ref erence range: 1.80 - 8 .00 K/L. The refe rence range was not u sed to interpret this result as normal/abnor mal. # Lymphs (test code = 0.97 See_Comment L [Auto mated message] 414) The system [employer] generated this result transmitted ref erence range: 1.48 - 4 .50 K/L. The refe rence range was not u sed to interpret this result as normal/abnor mal. # Monos (test code = 0.74 See_Comment [Autom ated message] 415) The system [employer] generated this result transmitted ref erence range: 0.00 - 1 .30 K/L. The refe rence range was not u sed to interpret this result as normal/abnor mal. # Eos (test code = 416) 0.21 See_Comment [Au tomated message] The system [employer] generated this result transmitted ref erence range: 0.00 - 0 .50 K/L. The refe rence range was not u sed to interpret this result as normal/abnor mal. # Baso (test code = 417) 0.05 See_Comment [A utomated message] The system [employer] generated this result transmitted ref erence range: 0.00 - 0 .20 K/L. The refe rence range was not u sed to interpret this result as normal/abnor mal. Immature 1 % 0-0 H Granulocytes-Relative (test code = 2801) Lab Interpretation (test Abnormal code = 42096-9) [facility] W/PLT COUNT & AUTO [id number] 05:17:00 Test Item Value Reference Range Interpretation [...] PERCENT (BEAKER) (test code = 2801) POCT-GLUCOSE [id number] 13:00:00 Test Item Value Reference Range Interpretation Comments POC-GLUCOSE METER 114 mg/dL 70-110 H : Notified RN/MD: TESTED (BEAKER) (test code AT [address] = 1538) [facility] [address]: Flat Screen Worker/Techni cornelia ID = [id number] for Cony Osborne ANAEROBIC [id number] 09:52:00 Test Item Value Reference Range Interpretation Comments CULTURE (BEAKER) (test No anaerobes isolated code = 1095) Anaerobic [id number] 09:51:00 Test Item Value Reference Range Interpretation Comments Result (test code = No anaerobes isolated 6463-4) [facility] [id number] 09:51:00 Test Item Value Reference Range Interpretation Comments Result (test code = No anaerobes isolated 6463-4) [facility] [id number] 09:51:00 Test Item Value Reference Range Interpretation Comments Result (test code = No anaerobes isolated 6463-4) [facility] [id number] 09:51:00 Test Item Value Reference Range Interpretation Comments Result (test code = No anaerobes isolated 6463-4) [facility] [id number] 09:51:00 Test Item Value Reference Range Interpretation Comments Result (test code = No anaerobes isolated 6463-4) [facility] [id number] 09:51:00 Test Item Value Reference Range Interpretation Comments Result (test code = No anaerobes isolated 6463-4) [facility] [id number] 09:51:00 Test Item Value Reference Range Interpretation Comments Result (test code = No anaerobes isolated 6463-4) [facility] [id number] 09:51:00 Test Item Value Reference Range Interpretation Comments CULTURE (BEAKER) (test No anaerobes isolated code = 1095) BASIC METABOLIC [id number] 06:34:00 Test Item Value Reference Range Interpretation [...] S NOT APPLICABLE FOR DIALYSIS PATIEN TS. Flat Screen Worker ID - [id number] ID - [id number] ID - [id number] ID - [id number] ID - [id number] ID - [id number] ID - [id number] ID - [id number] ID - [id number] ID - [id number]- GLUCOSE [id number] 06:13:00 Test Item Value Reference Range Interpretation Comments POC-GLUCOSE METER 95 mg/dL 70-110 : TESTED A T [address] (BEAKER) (test code = [address], 1538) [facility] [address]: Flat Screen Worker/Techni cornelia ID = [id number] for Agustina Harrison [id number] 05:36:00 Test Item Value Reference Range Interpretation Comments MAGNESIUM (BEAKER) (test code = 1.9 mg/dL 1.5-3.0 627) Flat Screen Worker ID - [id number] ID - [id number] ID - [id number] ID - [id number] W/PLT COUNT & AUTO [id number] 05:21:00 Test Item Value Reference Range Interpretation [...] PERCENT (BEAKER) (test code = 2801) POCT-GLUCOSE [id number] 21:10:00 Test Item Value Reference Range Interpretation Comments POC-GLUCOSE METER 137 mg/dL 70-110 H : TESTED A T [address] [address] (BEAKER) (test code [facility] [address], = 1538) [facility] [address]: Flat Screen Worker/Techni cornelia ID = [id number] for Agustina Harrison POCT-GLUCOSE [id number] 19:19:00 Test Item Value Reference Range Interpretation Comments POC-GLUCOSE METER 119 mg/dL 70-110 H : TESTED A T [address] (BEAKER) (test code [address], = 1538) [place] [address]: Flat Screen Worker/Techni cornelia ID = [id number] for Adrienne r, Heidy POCT-GLUCOSE [id number] 12:43:00 Test Item Value Reference Range Interpretation Comments POC-GLUCOSE METER 126 mg/dL 70-110 H : TESTED A T [address] (BEAKER) (test code [address], = 1538) [place] [address]: Flat Screen Worker/Techni cornelia ID = [id number] for Adrienne r, Heidy POCT-GLUCOSE [id number] 06:47:00 Test Item Value Reference Range Interpretation Comments POC-GLUCOSE METER 132 mg/dL 70-110 H : TESTED A T [address] (BEAKER) (test code [address], = 1538) [place] [address]: Flat Screen Worker/Techni cornelia ID = [id number] for Zackary Bustamante si BASIC METABOLIC [id number] 04:59:00 Test Item Value Reference Range Interpretation [...] S NOT APPLICABLE FOR DIALYSIS PATIEN TS. Flat Screen Worker ID - [id number] ID - [id number] ID - [id number] ID - [id number] ID - [id number] ID - [id number] ID - [id number] ID - [id number] ID - [id number] ID - [id number] 04:44:00 Test Item Value Reference Range Interpretation Comments MAGNESIUM (BEAKER) (test code = 2.0 mg/dL 1.5-3.0 627) Flat Screen Worker ID - [id number] ID - [id number] ID - [id number] ID - [id number] CBC W/PLT COUNT & AUTO [id number] 04:30:00 Test Item Value Reference Range Interpretation [...] PERCENT (BEAKER) (test code = 2801) POCT-GLUCOSE [id number] 23:23:00 Test Item Value Reference Range Interpretation Comments POC-GLUCOSE METER 156 mg/dL 70-110 H : TESTED A T [address] (BEAKER) (test code [address], = 1538) [place] [address]: Flat Screen Worker/Techni cornelia ID = [id number] for Zackary Bustamante si POCT-GLUCOSE [id number] 18:35:00 Test Item Value Reference Range Interpretation Comments POC-GLUCOSE METER 137 mg/dL 70-110 H : TESTED A T [address] (BEAKER) (test code [address], = 1538) [place] [id number]: Flat Screen Worker/Techni cornelia ID = [id number] for Adrienne r, Heidy POCT-GLUCOSE [id number] 13:42:00 Test Item Value Reference Range Interpretation Comments POC-GLUCOSE METER 109 mg/dL 70-110 : TESTED A T [address] (BEAKER) (test code [address], = 1538) [place] [address]: Flat Screen Worker/Techni cornelia ID = [id number] for Adrienne r, Heidy RAD, FOOT, MIN 3 VIEWS, [id number] 09:06:00Reason for exam:->s/[facility] 5th [facility] 1975 Sex: MFINAL [...] Gleason Verified Date/Time: 09/26/2020 09:06:00 Reading Location: [facility] Radiology Reading Room XR foot 3 views [id number] 09:06:00 Interface, External Ris In - 09/26/2020 [...] Gleason Verified Date/Time: 09/26/2020 09:06:00 Reading Location: [facility] [id number] 09:06:00Interface, External Ris In - 09/26/2020 9:08 [...] Gleason Verified Date/Time: 09/26/2020 09:06:00 Reading Location: [facility] [id number] 09:06:00Interface, External Ris In - 09/26/2020 9:08 [...] Gleason Verified Date/Time: 09/26/2020 09:06:00 Reading Location: [facility] [id number] 09:06:00Interface, External Ris In - 09/26/2020 9:08 [...] Gleason Verified Date/Time: 09/26/2020 09:06:00 Reading Location: [facility] [id number] 08:47:00 Test Item Value Reference Range Interpretation Comments POC-GLUCOSE METER 134 mg/dL 70-110 H : Notified RN/MD: TESTED (BEAKER) (test code AT [facility] [address] = [address]) [place] [address]: Flat Screen Worker/Techni cornelia ID = [id number] for Marzena Ponce BASIC METABOLIC [id number] 06:13:00 Test Item Value Reference Range Interpretation [...] S NOT APPLICABLE FOR DIALYSIS PATIEN TS. Flat Screen Worker ID - spmt22Zvlqtteb ID - [id number] ID - [id number] ID - [id number] ID - [id number] ID - [id number] ID - [id number] ID - [id number] ID - [id number] ID - [id number] 06:08:00 Test Item Value Reference Range Interpretation Comments MAGNESIUM (BEAKER) (test code = 2.2 mg/dL 1.5-3.0 627) Flat Screen Worker ID - [id number] ID - [id number] ID - [id number] ID - [id number] B-type Natriuretic Factor (BNP)2020-09-26 06:01:00 Test Item Value Reference Range Interpretation Comments BNP (test code = 38087-7) 929 pg/mL 0-100 H ISSA (test code = ISSA) Flat Screen Worker ID - [id number] Lab Interpretation (test Abnormal code = 26688-7) [facility]2020-09-26 06:01:00 Test Item Value Reference Range Interpretation Comments BNP (test code = 87027-7) 929 pg/mL 0-100 H ISSA (test code = ISSA) Flat Screen Worker ID - [id number] Lab Interpretation (test Abnormal code = 39391-1) [facility]2020-09-26 06:01:00 Test Item Value Reference Range Interpretation Comments BNP (test code = 25301-4) 929 pg/mL 0-100 H ISSA (test code = ISSA) Flat Screen Worker ID - [id number] Lab Interpretation (test Abnormal code = 21343-7) [facility]2020-09-26 06:01:00 Test Item Value Reference Range Interpretation Comments BNP (test code = 56633-5) 929 pg/mL 0-100 H ISSA (test code = ISSA) Flat Screen Worker ID - [id number] Lab Interpretation (test Abnormal code = 00090-5) [facility]2020-09-26 06:01:00 Test Item Value Reference Range Interpretation Comments BNP (test code = 04420-0) 929 pg/mL 0-100 H ISSA (test code = ISSA) Flat Screen Worker ID - [id number] Lab Interpretation (test Abnormal code = 27440-7) [facility]2020-09-26 06:01:00 Test Item Value Reference Range Interpretation Comments BNP (test code = 66757-5) 929 pg/mL 0-100 H SISA (test code = ISSA) Flat Screen Worker ID - [id number] Lab Interpretation (test Abnormal code = 06271-3) [facility]2020-09-26 06:01:00 Test Item Value Reference Range Interpretation Comments BNP (test code = 25661-5) 929 pg/mL 0-100 H ISSA (test code = ISSA) Flat Screen Worker ID - [id number] Lab Interpretation (test Abnormal code = 64680-4) [facility] NAT[facility] (BNP)2020-09-26 06:01:00 Test Item Value Reference Range Interpretation Comments B-TYPE NATRIURETIC PEPTIDE (BEAKER) 929 pg/mL 0-100 H (test code = 700) Flat Screen Worker ID - [id number] W/PLT COUNT & AUTO [id number] 05:44:00 Test Item Value Reference Range Interpretation [...] PERCENT (BEAKER) (test code = 2801) POCT-GLUCOSE [id number] 21:22:00 Test Item Value Reference Range Interpretation Comments POC-GLUCOSE METER 162 mg/dL 70-110 H : TESTED A T [address] (BEAKER) ([facility] = [facility]) [place] [address]: Flat Screen Worker/Techni cornelia ID = [id number] for Agustina Harrison POCT-GLUCOSE [id number] 16:27:00 Test Item Value Reference Range Interpretation Comments POC-GLUCOSE METER 151 mg/dL 70-110 H : TESTED A T [address] (BEAKER) (test code [facility] [place] = [facility]) [place] [address]: Flat Screen Worker/Techni cornelia ID = [id number] for Judy suha, Ayinor POCT-GLUCOSE [id number] 11:32:00 Test Item Value Reference Range Interpretation Comments POC-GLUCOSE METER 104 mg/dL 70-110 : TESTED A T [address] [address] (BEAKER) (test code [facility] [place] [address], = 1538) [place] [address]: Flat Screen Worker/Techni cornelia ID = [id number] for Judy suha, Ayinor POCT-GLUCOSE [id number] 06:17:00 Test Item Value Reference Range Interpretation Comments POC-GLUCOSE METER 112 mg/dL 70-110 H : TESTED A T [address] (BEAKER) (test code [facility] [place] [address], = 1538) [place] [address]: Flat Screen Worker/Techni cornelia ID = [id number] for Lani Kat [id number] 05:39:00 Test Item Value Reference Range Interpretation Comments MAGNESIUM (BEAKER) (test code = 1.9 mg/dL 1.5-3.0 627) Flat Screen Worker ID - LITOOperator ID - LITOOperator ID - LITOOperator ID - LITOBASIC METABOLIC [id number] 05:38:00 Test Item Value Reference Range Interpretation [...] S NOT APPLICABLE FOR DIALYSIS PATIEN TS. Flat Screen Worker ID - LITOOperator ID - LITOOperator ID - LITOOperator ID - LITOOperator ID - LITOOperator ID - LITOOperator ID - LITOOperator ID - LITOOperator ID - LITOOperator ID - LITOCBC W/PLT COUNT & AUTO [id number] 05:20:00 Test Item Value Reference Range Interpretation [...] PERCENT (BEAKER) (test code = 2801) POCT-GLUCOSE [id number] 20:48:00 Test Item Value Reference Range Interpretation Comments POC-GLUCOSE METER 167 mg/dL 70-110 H : TESTED A T [facility] [address] (BEAKER) (test code [facility] [place] [address], = 1538) [facility] [address]: Flat Screen Worker/Techni cornelia ID = [id number] for Lani Kat POCT-GLUCOSE [id number] 17:48:00 Test Item Value Reference Range Interpretation Comments POC-GLUCOSE METER 260 mg/dL 70-110 H : TESTED A T [facility] 1317 (CECILIO) (test code [address], = 1538) [facility] [address]: Flat Screen Worker/Techni cornelia ID = [id number] for Heidy Martin ARTERIAL DOPPLER LEGS, [id number] 13:42:00Reason for exam:- >osteomyelitis left foot [facility] : 1975 Sex: [...] MDReport Verified Date/Time: 09/24/2020 13:42:37 Reading Location: [facility] Radiology Reading Room Arterial Doppler Legs [id number] 13:42:00Interface, External Ris In - 09/24/2020 1:44 [...] Ortiz Verified Date/Time: 09/24/2020 13:42:37 Reading Location: [facility] Rad[facility] [id number] 13:42:00Interface, External Ris In - 09/24/2020 1:44 [...] with diffuse peripheral vascular disease. Signed: Jerome Ortizort Verified Date/Time: 09/24/2020 13:42:37 Reading Location: [facility] Radiology Reading [facility] Leg[facility] [id number] 13:42:00Interface, External Ris In - 09/24/2020 1:44 [...] Ortiz Verified Date/Time: 09/24/2020 13:42:37 Reading Location: [facility] Radiology [facility] Leg[facility] Tzpjzraoi3703-56-55 13:42:00Interface, External Ris In - 09/24/2020 1:44 [...] Ortiz Verified Date/Time: 09/24/2020 13:42:37 Reading Location: [facility] Radiology Reading Room [facility] Nitrogen, random [id number] 10:42:00 Test Item Value Reference Range Interpretation Comments Urea Nitrogen, Ur 236 mg/dL (test code = 3095-7) ISSA (test code = Reference Range: No ISSA) NormalsOperator ID - ORION Carrasquillo [facility] Nitrogen, random [id number] 10:42:00 Test Item Value Reference Range Interpretation Comments Urea Nitrogen, Ur 236 mg/dL (test code = 3095-7) ISSA (test code = Reference Range: No ISSA) NormalsOperator ID - ORION Carrasquillo [facility] Nitrogen, random [id number] 10:42:00 Test Item Value Reference Range Interpretation Comments Urea Nitrogen, Ur 236 mg/dL (test code = 3095-7) ISSA (test code = Reference Range: No ISSA) NormalsOperator ID - ORION Carrasquillo [facility] Nitrogen, random [id number] 10:42:00 Test Item Value Reference Range Interpretation Comments Urea Nitrogen, Ur 236 mg/dL (test code = 3095-7) ISSA (test code = Reference Range: No ISSA) NormalsOperator ID - ORION Carrasquillo [facility]Urea Nitrogen, random [id number] 10:42:00 Test Item Value Reference Range Interpretation Comments Urea Nitrogen, Ur 236 mg/dL (test code = 3095-7) ISSA (test code = Reference Range: No ISSA) NormalsOperator ID - ORION [facility], random [id number] 10:42:00 Test Item Value Reference Range Interpretation Comments Urea Nitrogen, Ur 236 mg/dL (test code = 3095-7) ISSA (test code = Reference Range: No ISSA) NormalsOperator ID - MAR [facility], random [id number] 10:42:00 Test Item Value Reference Range Interpretation Comments Urea Nitrogen, Ur 236 mg/dL (test code = 3095-7) ISSA (test code = Reference Range: No ISSA) NormalsOperator [place] - ORION C [facility] HospitalUREA NITROGEN, RANDOM [id number] 10:42:00 Test Item Value Reference Range Interpretation Comments UREA NITROGEN URINE (BEAKER) (test 236 mg/dL code = 538) Reference Range: No NormalsOperator [facility] CVitamin D, 20-[id number] 10:38:00 Test Item Value Reference Range Interpretation Comments Vitamin D 25-Hydroxy 7.3 ng/mL 6.6-49.9 (test code = 2764) ISSA (test code = ISSA) Effective 01/06/2017: Reference Range ChangeNew: 6.6-49.9 ng/mL Previous: 13.0-47.8 ng/mL Recommended Vitamin D Target Range: 30.0-40.0 ng/mLOperBaton [facility] Lab Interpretation (test Normal code = 17492-8) [facility], 06-Gjgmbrw3796-78-29 10:38:00 Test Item Value Reference Range Interpretation Comments Vitamin D 25-Hydroxy 7.3 ng/mL 6.6-49.9 (test code = 2764) ISSA (test code = ISSA) Effective 01/06/2017: Reference Range ChangeNew: 6.6-49.9 ng/mL Previous: 13.0-47.8 ng/mL Recommended Vitamin D Target Range: 30.0-40.0 ng/mLAur[facility] C Lab Interpretation (test Normal code = 92854-8) [facility], 19-Ayoxvri5185-84-29 10:38:00 Test Item Value Reference Range Interpretation Comments Vitamin D 25-Hydroxy 7.3 ng/mL 6.6-49.9 (test code = 2764) ISSA (test code = ISSA) Effective 01/06/2017: Reference Range ChangeNew: 6.6-49.9 ng/mL Previous: 13.0-47.8 ng/mL Recommended Vitamin D Target Range: 30.0-40.0 ng/mLOperator ID - ORION C Lab Interpretation (test Normal code = 96282-4) [facility], 36-Ijrsepa2340-78-29 10:38:00 Test Item Value Reference Range Interpretation Comments Vitamin D 25-Hydroxy 7.3 ng/mL 6.6-49.9 (test code = 2764) ISSA (test code = ISSA) Effective 01/06/2017: Reference Range ChangeNew: 6.6-49.9 ng/mL Previous: 13.0-47.8 ng/mL Recommended Vitamin D Target Range: 30.0-40.0 ng/mLOperator ID - ORION C Lab Interpretation (test Normal code = 78351-0) [facility], 96-Rrjqsqv4697-79-29 10:38:00 Test Item Value Reference Range Interpretation Comments Vitamin D 25-Hydroxy 7.3 ng/mL 6.6-49.9 (test code = 2764) ISSA (test code = ISSA) Effective 01/06/2017: Reference Range ChangeNew: 6.6-49.9 ng/mL Previous: 13.0-47.8 ng/mL Recommended Vitamin D Target Range: 30.0-40.0 ng/mLOperator ID - ORION C Lab Interpretation (test Normal code = 09441-6) [facility], 24-[id number] 10:38:00 Test Item Value Reference Range Interpretation Comments Vitamin D 25-Hydroxy 7.3 ng/mL 6.6-49.9 (test code = 2764) ISSA (test code = ISSA) Effective 01/06/2017: Reference Range ChangeNew: 6.6-49.9 ng/mL Previous: 13.0-47.8 ng/mL Recommended Vitamin D Target Range: 30.0-40.0 ng/mLOperator ID - ORION C Lab Interpretation (test Normal code = 55376-2) [facility], 51-[id number] 10:38:00 Test Item Value Reference Range Interpretation Comments Vitamin D 25-Hydroxy 7.3 ng/mL 6.6-49.9 (test code = 2764) ISSA (test code = ISSA) Effective 01/06/2017: Reference Range ChangeNew: 6.6-49.9 ng/mL Previous: 13.0-47.8 ng/mL Recommended Vitamin D Target Range: 30.0-40.0 ng/mLOperator ID - ORION C Lab Interpretation (test Normal code = 90307-6) [facility]IT[facility]IN D, 41-[id number] 10:38:00 Test Item Value Reference Range Interpretation Comments VITAMIN D 25-OH (BEAKER) (test code 7.3 ng/mL 6.6-49.9 = 2764) Effective 01/06/2017: Reference Range ChangeNew: 6.6-49.9 ng/mL Previous: 13.0-47.8 ng/mLRecommended Vitamin D Target Range: 30.0-40.0 ng/mLOperator ID - ORION [facility], [id number] 07:31:00 Test Item Value Reference Range Interpretation Comments PTH (test code = 2731-8) 271.6 pg/mL 15-90 H ISSA (test code = ISSA) Flat Screen Worker ID - [id number] Lab Interpretation (test Abnormal code = 23550-7) [facility], [id number] 07:31:00 Test Item Value Reference Range Interpretation Comments PTH (test code = 2731-8) 271.6 pg/mL 15-90 H ISSA (test code = ISSA) Flat Screen Worker ID - [id number] Lab Interpretation (test Abnormal code = 80042-4) [facility], [id number] 07:31:00 Test Item Value Reference Range Interpretation Comments PTH (test code = 2731-8) 271.6 pg/mL 15-90 H ISSA (test code = ISSA) Flat Screen Worker ID - [id number] Lab Interpretation (test Abnormal code = 25816-4) [facility], [id number] 07:31:00 Test Item Value Reference Range Interpretation Comments PTH (test code = 2731-8) 271.6 pg/mL 15-90 H ISSA (test code = ISSA) Flat Screen Worker ID - [id number] Lab Interpretation (test Abnormal code = 23503-3) [facility], [id number] 07:31:00 Test Item Value Reference Range Interpretation Comments PTH (test code = 2731-8) 271.6 pg/mL 15.0-90.0 H ISSA (test code = ISSA) Flat Screen Worker ID - [id number] Lab Interpretation (test Abnormal code = 25851-5) [facility], [id number] 07:31:00 Test Item Value Reference Range Interpretation Comments PTH (test code = 2731-8) 271.6 pg/mL 15.0-90.0 H ISSA (test code = ISSA) Flat Screen Worker ID - [id number] Lab Interpretation (test Abnormal code = 83234-8) [facility], [id number] 07:31:00 Test Item Value Reference Range Interpretation Comments PTH (test code = 2731-8) 271.6 pg/mL 15.0-90.0 H ISSA (test code = ISSA) Flat Screen Worker ID - [id number] Lab Interpretation (test Abnormal code = 60434-7) [facility], [id number] 07:31:00 Test Item Value Reference Range Interpretation Comments PARATHYROID HORMONE INTACT 271.6 pg/mL 15.0-90.0 H (BEAKER) (test code = 577) Flat Screen Worker ID - [id number] [id number] 06:45:00 Test Item Value Reference Range Interpretation Comments POC-GLUCOSE METER 122 mg/dL 70-110 H : Notified RN/MD: TESTED (BEAKER) (test code AT [place] [address] [place] = 1538) [facility] [address]: Flat Screen Worker/Techni cornelia ID = [id number] for Coco Griffin Iron, TIBC, % sat. (without ferritin)2020-09-24 06:41:00 Test Item Value Reference Range Interpretation Comments Iron (test code = 43.0 ug/dL 45-170 L 2498-4) TIBC (test code = 189 ug/dL 250-550 L 2500-7) Iron % Saturation (test 23 % 20-55 code = 2502-3) ISSA (test code = ISSA) Flat Screen Worker ID - LITOOperator ID - ARCHIE Lab Interpretation (test Abnormal code = 18623-5) [facility], TIBC, % sat. (without ferritin)2020-09-24 06:41:00 Test Item Value Reference Range Interpretation Comments Iron (test code = 43.0 ug/dL 45-170 L 2498-4) TIBC (test code = 189 ug/dL 250-550 L 2500-7) Iron % Saturation (test 23 % 20-55 code = 2502-3) ISSA (test code = ISSA) Flat Screen Worker ID - LITOOperator ID - ARCHIE Lab Interpretation (test Abnormal code = 58620-7) [facility], TIBC, % sat. (without ferritin)2020-09-24 06:41:00 Test Item Value Reference Range Interpretation Comments Iron (test code = 43.0 ug/dL 45-170 L 2498-4) TIBC (test code = 189 ug/dL 250-550 L 2500-7) Iron % Saturation (test 23 % 20-55 code = 2502-3) ISSA (test code = ISSA) Flat Screen Worker ID - LITOOperator ID - ARCHIE Lab Interpretation (test Abnormal code = 83920-4) [facility], TIBC, % sat. (without ferritin)2020-09-24 06:41:00 Test Item Value Reference Range Interpretation Comments Iron (test code = 43.0 ug/dL 45-170 L 2498-4) TIBC (test code = 189 ug/dL 250-550 L 2500-7) Iron % Saturation (test 23 % 20-55 code = 2502-3) ISSA (test code = ISSA) Flat Screen Worker ID - LITOOperator ID - ARCHIE Lab Interpretation (test Abnormal code = 20206-7) [facility], TIBC, % sat. (without ferritin)2020-09-24 06:41:00 Test Item Value Reference Range Interpretation Comments Iron (test code = 43.0 ug/dL 45.0-170.0 L 2498-4) TIBC (test code = 189 ug/dL 250-550 L 2500-7) Iron % Saturation (test 23 % 20-55 code = 2502-3) ISSA (test code = ISSA) Flat Screen Worker ID - LITOOperator ID - ARCHIE Lab Interpretation (test Abnormal code = 01095-1) [facility], TIBC, % sat. (without ferritin)2020-09-24 06:41:00 Test Item Value Reference Range Interpretation Comments Iron (test code = 43.0 ug/dL 45.0-170.0 L 2498-4) TIBC (test code = 189 ug/dL 250-550 L 2500-7) Iron % Saturation (test 23 % 20-55 code = 2502-3) ISSA (test code = ISSA) Flat Screen Worker ID - LITOOperator ID - ARCHIE Lab Interpretation (test Abnormal code = 25950-1) [facility] Hospital[facility]ro, TIBC, % sat. (without ferritin)2020-09-24 06:41:00 Test Item Value Reference Range Interpretation Comments Iron (test code = 43.0 ug/dL 45.0-170.0 L 2498-4) TIBC (test code = 189 ug/dL 250-550 L 2500-7) Iron % Saturation (test 23 % 20-55 code = 2502-3) ISSA (test code = ISSA) Flat Screen Worker ID - LITOOperator ID - ARCHIE Lab Interpretation (test Abnormal code = 34226-4) [facility] HospitalIRO, TIBC, % SAT. (WITHOUT FERRITIN)2020-09-24 06:41:00 Test Item Value Reference Range Interpretation Comments IRON (BEAKER) (test code = 547) 43.0 ug/dL 45.0-170.0 L TOTAL IRON BINDING CAPACITY 189 ug/dL 250-550 L (BEAKER) (test code = 769) IRON % SATURATION (2) (BEAKER) 23 % 20-55 (test code = 2590) Flat Screen Worker ID - LITOOperator ID - NMBYHszimysw8916-64-70 06:23:00 Test Item Value Reference Range Interpretation Comments Ferritin (test code = 190.40 ng/mL 22-322 2276-4) ISSA (test code = ISSA) Flat Screen Worker ID - ARCHIE Lab Interpretation (test Normal code = 83163-5) [facility] HospitalFerritin2021-[facility] 06:23:00 Test Item Value Reference Range Interpretation Comments Ferritin (test code = 190.40 ng/mL 22-322 2276-4) ISSA (test code = ISSA) Flat Screen Worker ID - ARCHIE Lab Interpretation (test Normal code = 12791-7) [facility] HospitalFerritin2021-[facility]-29 06:23:00 Test Item Value Reference Range Interpretation Comments Ferritin (test code = 190.40 ng/mL 22-322 2276-4) ISSA (test code = ISSA) Flat Screen Worker ID - ARCHIE Lab Interpretation (test Normal code = 39959-8) [facility] Hospital[facility]ritin2021-[facility]-29 06:23:00 Test Item Value Reference Range Interpretation Comments Ferritin (test code = 190.40 ng/mL 22-322 2276-4) ISSA (test code = ISSA) Flat Screen Worker ID - ARCHIE Lab Interpretation (test Normal code = 76846-1) [facility] Hospital[facility]ritin2021-[facility]-29 06:23:00 Test Item Value Reference Range Interpretation Comments Ferritin (test code = 190.40 ng/mL 22.00-322.00 2276-4) ISSA (test code = ISSA) Flat Screen Worker ID - ARCHIE Lab Interpretation (test Normal code = 34417-0) [facility] 06:23:00 Test Item Value Reference Range Interpretation Comments Ferritin (test code = 190.40 ng/mL 22.00-322.00 2276-4) ISSA (test code = ISSA) Flat Screen Worker ID - ARCHIE Lab Interpretation (test Normal code = 77592-9) [facility]in[facility]21-[facility]-29 06:23:00 Test Item Value Reference Range Interpretation Comments Ferritin (test code = 190.40 ng/mL 22.00-322.00 2276-4) ISSA (test code = ISSA) Flat Screen Worker ID - ARCHIE Lab Interpretation (test Normal code = 92808-9) [facility] HospitalFERRITIN2021-[facility]-29 06:23:00 Test Item Value Reference Range Interpretation Comments FERRITIN (BEAKER) (test code = 190.40 ng/mL 22.00-322.00 361) Flat Screen Worker ID - LITOBASIC METABOLIC [id number] 06:18:00 Test Item Value Reference Range Interpretation [...] S NOT APPLICABLE FOR DIALYSIS PATIEN TS. Flat Screen Worker ID - LITOOperator ID - LITOOperator ID - LITOOperator ID - LITOOperator ID - LITOOperator ID - LITOOperator ID - LITOOperator ID - LITOOperator ID - LITOOperator ID - [id number] 06:04:00 Test Item Value Reference Range Interpretation Comments MAGNESIUM (BEAKER) (test code = 1.6 mg/dL 1.5-3.0 627) Flat Screen Worker ID - LITOOperator ID - LITOOperator ID - LITOOperator ID - LITOCBC W/PLT COUNT & AUTO [id number] 06:03:00 Test Item Value Reference Range Interpretation [...] PERCENT (BEAKER) (test code = 2801) POCT-GLUCOSE [id number] 21:37:00 Test Item Value Reference Range Interpretation Comments POC-GLUCOSE METER 185 mg/dL 70-110 H : TESTED A T [address] (BEAKER) (test code [address], = 1538) [facility] [address]: Flat Screen Worker/Techni cornelia ID = [id number] for Rachel Branham U/S, RENAL, [id number] 21:19:00Reason for exam:->Acute renal failure [facility] : 1975 Sex: [...] Petersen MDReport Verified Date/Time: 121:19:36 US renal bgszqfyl8673-93-58 21:19:00Interface, External Ris In - 09/23/2020 9:21 [...] Signed: Teo Petersen Verified Date/Time: 09/23/2020 21:19:36 [facility] 21:19:00Interface, External Ris [...] Verified Date/Time: 09/23/2020 21:19:36 [facility] renal vasjirjj5276-91-65 21:19:00Interface, External Ris In - 09/23/2020 9:21 [...] Signed: Moose Peterseneport Verified Date/Time: 09/23/2020 21:19:36 [facility] kidkvrch3121-61-06 21:19:00Interface, External Ris In - 09/23/2020 9:21 [...] Signed: Moose Petersenort Verified Date/Time: 09/23/2020 21:19:36 [facility] Protein, random [id number] 19:02:00 Test Item Value Reference Range Interpretation Comments Protein, Urine (test code 212 mg/dL 0-14 H = 2888-6) ISSA (test code = ISSA) Flat Screen Worker ID - [id number] ID - [id number] Lab Interpretation (test Abnormal code = 22178-4) [facility]Protein, random [id number] 19:02:00 Test Item Value Reference Range Interpretation Comments Protein, Urine (test code 212 mg/dL 0-14 H = 2888-6) ISSA (test code = ISSA) Flat Screen Worker ID - [id number] ID - [id number] Lab Interpretation (test Abnormal code = 38899-6) [facility]Protein, random [id number] 19:02:00 Test Item Value Reference Range Interpretation Comments Protein, Urine (test code 212 mg/dL 0-14 H = 2888-6) ISSA (test code = ISSA) Flat Screen Worker ID - [id number] ID - [id number] Lab Interpretation (test Abnormal code = 43294-1) [facility]Protein, random [id number] 19:02:00 Test Item Value Reference Range Interpretation Comments Protein, Urine (test code 212 mg/dL 0-14 H = 2888-6) ISSA (test code = ISSA) Flat Screen Worker ID - [id number] ID - [id number] Lab Interpretation (test Abnormal code = 36831-3) [facility] HospitalProtein, random [id number] 19:02:00 Test Item Value Reference Range Interpretation Comments Protein, Urine (test code 212 mg/dL 0-14 H = 2888-6) ISSA (test code = ISSA) Flat Screen Worker ID - [id number] ID - [id number] Lab Interpretation (test Abnormal code = 23293-5) [facility] HospitalProtein, random [id number] 19:02:00 Test Item Value Reference Range Interpretation Comments Protein, Urine (test code 212 mg/dL 0-14 H = 2888-6) ISSA (test code = ISSA) Flat Screen Worker ID - [id number] ID - [id number] Lab Interpretation (test Abnormal code = 20211-1) [facility] HospitalProtein, random [id number] 19:02:00 Test Item Value Reference Range Interpretation Comments Protein, Urine (test code 212 mg/dL 0-14 H = 2888-6) ISSA (test code = ISSA) Flat Screen Worker ID - [id number] ID - [id number] Lab Interpretation (test Abnormal code = 36734-5) [facility] HospitalPROTEIN, RANDOM [id number] 19:02:00 Test Item Value Reference Range Interpretation Comments PROTEIN, URINE (BEAKER) (test code 212 mg/dL 0-14 H = 1569) Flat Screen Worker ID - [id number] ID - [id number], random [id number] 18:49:00 Test Item Value Reference Range Interpretation Comments Creatinine, Ur 23.8 mg/dL (test code = 2161-8) ISSA (test code = Reference Range: No ISSA) NormalsOperator ID - [id number] [facility] [id number] 18:49:00 Test Item Value Reference Range Interpretation Comments Creatinine, Ur 23.8 mg/dL (test code = 2161-8) ISSA (test code = Reference Range: No ISSA) NormalsOperator ID - [id number] [facility] [id number] 18:49:00 Test Item Value Reference Range Interpretation Comments Creatinine, Ur 23.8 mg/dL (test code = 2161-8) ISSA (test code = Reference Range: No ISSA) NormalsOperator ID - [id number] [facility] [id number] 18:49:00 Test Item Value Reference Range Interpretation Comments Creatinine, Ur 23.8 mg/dL (test code = 2161-8) ISSA (test code = Reference Range: No ISSA) NormalsOperator ID - [id number] [facility] [id number] 18:49:00 Test Item Value Reference Range Interpretation Comments Creatinine, Ur 23.8 mg/dL (test code = 2161-8) ISSA (test code = Reference Range: No ISSA) NormalsOperator ID - [id number] [facility] [id number] 18:49:00 Test Item Value Reference Range Interpretation Comments Creatinine, Ur 23.8 mg/dL (test code = 2161-8) ISSA (test code = Reference Range: No ISSA) NormalsOperator ID - [id number] [facility] [id number] 18:49:00 Test Item Value Reference Range Interpretation Comments Creatinine, Ur 23.8 mg/dL (test code = 2161-8) ISSA (test code = Reference Range: No ISSA) NormalsOperator ID - [id number] [facility]AT[facility] RANDOM [id number] 18:49:00 Test Item Value Reference Range Interpretation Comments CREATININE URINE (BEAKER) (test 23.8 mg/dL code = 375) Reference Range: No NormalsOperator ID - [id number], random urine 2020-09-23 18:43:00 Test Item Value Reference Range Interpretation Comments ChlorideUr (test 117 meq/L code = 88479-3) ISSA (test code = Reference Range: No ISSA) NormalsOperator ID - [id number] [facility] [id number] 18:43:00 Test Item Value Reference Range Interpretation Comments Potassium Urine 21.5 meq/L (test code = 2828-2) ISSA (test code = Reference Range: No ISSA) NormalsOperator ID [id number] [facility] [id number] 18:43:00 Test Item Value Reference Range Interpretation Comments Sodium Urine (test 113 meq/L code = 2955-3) ISSA (test code = Reference Range: No ISSA) NormalsOperator ID - [id number] [facility] [id number] 18:43:00 Test Item Value Reference Range Interpretation Comments ChlorideUr (test 117 meq/L code = 05355-4) ISSA (test code = Reference Range: No ISSA) NormalsOperator ID - [id number] [facility] [id number] 18:43:00 Test Item Value Reference Range Interpretation Comments Potassium Urine 21.5 meq/L (test code = 2828-2) ISSA (test code = Reference Range: No ISSA) NormalsOperator ID - [id number] [facility] [id number] 18:43:00 Test Item Value Reference Range Interpretation Comments Sodium Urine (test 113 meq/L code = 2955-3) ISSA (test code = Reference Range: No ISSA) NormalsOperator ID - [id number] [facility] [id number] 18:43:00 Test Item Value Reference Range Interpretation Comments ChlorideUr (test 117 meq/L code = 77001-1) ISSA (test code = Reference Range: No ISSA) NormalsOperator ID - [id number] [facility] [id number] 18:43:00 Test Item Value Reference Range Interpretation Comments Potassium Urine 21.5 meq/L (test code = 2828-2) ISSA (test code = Reference Range: No ISSA) NormalsOperator ID - [id number] [facility] [id number] 18:43:00 Test Item Value Reference Range Interpretation Comments Sodium Urine (test 113 meq/L code = 2955-3) ISSA (test code = Reference Range: No ISSA) NormalsOperator ID - [id number] [facility] [id number] 18:43:00 Test Item Value Reference Range Interpretation Comments ChlorideUr (test 117 meq/L code = 01005-3) ISSA (test code = Reference Range: No ISSA) NormalsOperator ID - [id number] [facility] [id number] 18:43:00 Test Item Value Reference Range Interpretation Comments Potassium Urine 21.5 meq/L (test code = 2828-2) ISSA (test code = Reference Range: No ISSA) NormalsOperator ID - [id number] [facility] [id number] 18:43:00 Test Item Value Reference Range Interpretation Comments Sodium Urine (test 113 meq/L code = 2955-3) ISSA (test code = Reference Range: No ISSA) NormalsOperator ID - [id number] [facility], random [id number] 18:43:00 Test Item Value Reference Range Interpretation Comments ChlorideUr (test 117 meq/L code = 04137-6) ISSA (test code = Reference Range: No ISSA) NormalsOperator ID - [id number] [facility] [id number] 18:43:00 Test Item Value Reference Range Interpretation Comments Potassium Urine 21.5 meq/L (test code = 2828-2) ISSA (test code = Reference Range: No ISSA) NormalsOperator ID - [id number] [facility] [id number] 18:43:00 Test Item Value Reference Range Interpretation Comments Sodium Urine (test 113 meq/L code = 2955-3) ISSA (test code = Reference Range: No ISSA) NormalsOperator ID - [id number] [facility], random [id number] 18:43:00 Test Item Value Reference Range Interpretation Comments ChlorideUr (test 117 meq/L code = 79827-6) ISSA (test code = Reference Range: No ISSA) NormalsOperator ID - [id number] [facility] [id number] 18:43:00 Test Item Value Reference Range Interpretation Comments Potassium Urine 21.5 meq/L (test code = 2828-2) ISSA (test code = Reference Range: No ISSA) NormalsOperator ID - [id number] [facility] [id number] 18:43:00 Test Item Value Reference Range Interpretation Comments Sodium Urine (test 113 meq/L code = 2955-3) ISSA (test code = Reference Range: No ISSA) NormalsOperator ID - [id number] [facility], random [id number] 18:43:00 Test Item Value Reference Range Interpretation Comments ChlorideUr (test 117 meq/L code = 90671-0) ISSA (test code = Reference Range: No ISSA) NormalsOperator ID - [id number] [facility], [facility] [id number] 18:43:00 Test Item Value Reference Range Interpretation Comments Potassium Urine 21.5 meq/L (test code = 2828-2) ISSA (test code = Reference Range: No ISSA) NormalsOperator ID - [id number] [facility] [id number] 18:43:00 Test Item Value Reference Range Interpretation Comments Sodium Urine (test 113 meq/L code = 2955-3) ISSA (test code = Reference Range: No ISSA) NormalsOperator ID - [id number] [facility] HospitalCHLORIDE, RANDOM [id number] 18:43:00 Test Item Value Reference Range Interpretation Comments CHLORIDE URINE (BEAKER) (test code 117 meq/L = 682) Reference Range: No NormalsOperator ID - [id number], RANDOM URINE 2020-09-23 18:43:00 Test Item Value Reference Range Interpretation Comments POTASSIUM URINE (BEAKER) (test 21.5 meq/L code = 195) Reference Range: No NormalsOperator ID - [id number], RANDOM [id number] 18:43:00 Test Item Value Reference Range Interpretation Comments SODIUM URINE (BEAKER) (test code = 113 meq/L 243) Reference Range: No NormalsOperator ID - [id number] w/Microscopic + Reflex to [id number] 17:44:00 Test Item Value Reference Range Interpretation Comments Color, UA (test code = Yellow 5778-6) Clarity, UA (test code = Clear 5767-9) Specific Garrett, UA 1.020 1.001-1.035 (test code = 5811-5) pH, UA (test code = 7.0 5.0-8.0 5803-2) Protein, UA (test code = 100 mg/dL Negative A 28152-7) Glucose, UA (test code = 100 mg/dL Negative A 365) Ketones, UA (test code = Negative Negative 2514-8) Bilirubin, UA (test code Negative Negative = 82900-2) Blood, UA (test code = Trace Negative A 24143-5) Nitrite, UA (test code = Negative Negative 5802-4) Leukocytes, UA (test Negative Negative code = 5799-2) Urobilinogen, UA (test 0.2 mg/dL 0.2-1 code = 12136-5) Bacteria, UA (test code None Seen = 85788-7) RBC, UA (test code = <5 See_Comment [Autom ated message] 799-7) The system [employer] generated this result transmit josé luis reference range : /HPF. The refer ence range was not u sed to interpret th is result as normal/abnormal . WBC, UA (test code = None Seen See_Comment [Autom ated message] 88771-5) The system [employer] generated this result transmit josé luis reference range : /HPF. The refer ence range was not u sed to interpret th is result as normal/abnormal . SQUAMOUS EPITHELIAL <5 See_Comment [Automa josé luis message] (test code = 21535-0) The sy stem which generated this result transmit josé luis reference range : /HPF. The refer ence range was not u sed to interpret th is result as normal/abnormal . Specimen Source (test code = 2795) Lab Interpretation (test Abnormal code = 17445-6) [facility]scopic + Reflex to Culture 2020-09-23 17:44:00 Test Item Value Reference Range Interpretation Comments Color, UA (test code = Yellow 5778-6) Clarity, UA (test code = Clear 5767-9) Specific Garrett, UA 1.020 1.001-1.035 (test code = 5811-5) pH, UA (test code = 7.0 5.0-8.0 5803-2) Protein, UA (test code = 100 mg/dL Negative A 18984-5) Glucose, UA (test code = 100 mg/dL Negative A 365) Ketones, UA (test code = Negative Negative 2514-8) Bilirubin, UA (test code Negative Negative = 12547-6) Blood, UA (test code = Trace Negative A 92162-2) Nitrite, UA (test code = Negative Negative 5802-4) Leukocytes, UA (test Negative Negative code = 5799-2) Urobilinogen, UA (test 0.2 mg/dL 0.2-1 code = 39598-9) Bacteria, UA (test code None Seen = 37679-8) RBC, UA (test code = <5 See_Comment [Autom ated message] 799-7) The system [employer] generated this result transmit josé luis reference range : /HPF. The refer ence range was not u sed to interpret th is result as normal/abnormal . WBC, UA (test code = None Seen See_Comment [Autom ated message] 09158-4) The system [employer] generated this result transmit josé luis reference range : /HPF. The refer ence range was not u sed to interpret th is result as normal/abnormal . SQUAMOUS EPITHELIAL <5 See_Comment [Automa josé luis message] (test code = 35747-8) The sy stem which generated this result transmit josé luis reference range : /HPF. The refer ence range was not u sed to interpret th is result as normal/abnormal . Specimen Source (test code = 2795) Lab Interpretation (test Abnormal code = 66463-6) [facility] + Reflex to Culture 2020-09-23 17:44:00 Test Item Value Reference Range Interpretation Comments Color, UA (test code = Yellow 5778-6) Clarity, UA (test code = Clear 5767-9) Specific Garrett, UA 1.020 1.001-1.035 (test code = 5811-5) pH, UA (test code = 7.0 5.0-8.0 5803-2) Protein, UA (test code = 100 mg/dL Negative A 60169-9) Glucose, UA (test code = 100 mg/dL Negative A 365) Ketones, UA (test code = Negative Negative 2514-8) Bilirubin, UA (test code Negative Negative = 51229-0) Blood, UA (test code = Trace Negative A 12048-0) Nitrite, UA (test code = Negative Negative 5802-4) Leukocytes, UA (test Negative Negative code = 5799-2) Urobilinogen, UA (test 0.2 mg/dL 0.2-1 code = 30322-4) Bacteria, UA (test code None Seen = 25982-5) RBC, UA (test code = <5 See_Comment [Autom ated message] 799-7) The system [employer] generated this result transmit josé luis reference range : /HPF. The refer ence range was not u sed to interpret th is result as normal/abnormal . WBC, UA (test code = None Seen See_Comment [Autom ated message] 04978-8) The system [employer] generated this result transmit josé luis reference range : /HPF. The refer ence range was not u sed to interpret th is result as normal/abnormal . SQUAMOUS EPITHELIAL <5 See_Comment [Automa josé luis message] (test code = 61089-3) The sy stem which generated this result transmit josé luis reference range : /HPF. The refer ence range was not u sed to interpret th is result as normal/abnormal . Specimen Source (test code = 2795) Lab Interpretation (test Abnormal code = 55638-8) [facility] + Reflex to Culture 2020-09-23 17:44:00 Test Item Value Reference Range Interpretation Comments Color, UA (test code = Yellow 5778-6) Clarity, UA (test code = Clear 5767-9) Specific Garrett, UA 1.020 1.001-1.035 (test code = 5811-5) pH, UA (test code = 7.0 5.0-8.0 5803-2) Protein, UA (test code = 100 mg/dL Negative A 88785-5) Glucose, UA (test code = 100 mg/dL Negative A 365) Ketones, UA (test code = Negative Negative 2514-8) Bilirubin, UA (test code Negative Negative = 86489-2) Blood, UA (test code = Trace Negative A 46913-0) Nitrite, UA (test code = Negative Negative 5802-4) Leukocytes, UA (test Negative Negative code = 5799-2) Urobilinogen, UA (test 0.2 mg/dL 0.2-1 code = 30675-9) Bacteria, UA (test code None Seen = 92468-1) RBC, UA (test code = <5 See_Comment [Autom ated message] 799-7) The system [employer] generated this result transmit josé luis reference range : /HPF. The refer ence range was not u sed to interpret th is result as normal/abnormal . WBC, UA (test code = None Seen See_Comment [Autom ated message] 34400-0) The system [employer] generated this result transmit josé luis reference range : /HPF. The refer ence range was not u sed to interpret th is result as normal/abnormal . SQUAMOUS EPITHELIAL <5 See_Comment [Automa josé luis message] (test code = 71743-7) The sy stem which generated this result transmit josé luis reference range : /HPF. The refer ence range was not u sed to interpret th is result as normal/abnormal . Specimen Source (test code = 2795) Lab Interpretation (test Abnormal code = 29292-2) [facility] + Reflex to Culture 2020-09-23 17:44:00 Test Item Value Reference Range Interpretation Comments Color, UA (test code = Yellow 5778-6) Clarity, UA (test code = Clear 5767-9) Specific Garrett, UA 1.020 1.001-1.035 (test code = 5811-5) pH, UA (test code = 7.0 5.0-8.0 5803-2) Protein, UA (test code = 100 mg/dL Negative A 60819-1) Glucose, UA (test code = 100 mg/dL Negative A 365) Ketones, UA (test code = Negative Negative 2514-8) Bilirubin, UA (test code Negative Negative = 79688-9) Blood, UA (test code = Trace Negative A 04199-8) Nitrite, UA (test code = Negative Negative 5802-4) Leukocytes, UA (test Negative Negative code = 5799-2) Urobilinogen, UA (test 0.2 mg/dL 0.2-1.0 code = 71357-5) Bacteria, UA (test code None Seen = 34539-5) RBC, UA (test code = <5 See_Comment [Autom ated message] 799-7) The system [employer] generated this result transmit josé luis reference range : /HPF. The refer ence range was not u sed to interpret th is result as normal/abnormal . WBC, UA (test code = None Seen See_Comment [Autom ated message] 35959-3) The system [employer] generated this result transmit josé luis reference range : /HPF. The refer ence range was not u sed to interpret th is result as normal/abnormal . SQUAMOUS EPITHELIAL <5 See_Comment [Automa josé luis message] (test code = 77019-2) The sy stem which generated this result transmit josé luis reference range : /HPF. The refer ence range was not u sed to interpret th is result as normal/abnormal . Specimen Source (test code = 2795) Lab Interpretation (test Abnormal code = 61859-0) [facility] + Reflex to Culture 2020-09-23 17:44:00 Test Item Value Reference Range Interpretation Comments Color, UA (test code = Yellow 5778-6) Clarity, UA (test code = Clear 5767-9) Specific Garrett, UA 1.020 1.001-1.035 (test code = 5811-5) pH, UA (test code = 7.0 5.0-8.0 5803-2) Protein, UA (test code = 100 mg/dL Negative A 79585-4) Glucose, UA (test code = 100 mg/dL Negative A 365) Ketones, UA (test code = Negative Negative 2514-8) Bilirubin, UA (test code Negative Negative = 55732-6) Blood, UA (test code = Trace Negative A 18160-4) Nitrite, UA (test code = Negative Negative 5802-4) Leukocytes, UA (test Negative Negative code = 5799-2) Urobilinogen, UA (test 0.2 mg/dL 0.2-1.0 code = 87435-3) Bacteria, UA (test code None Seen = 14799-2) RBC, UA (test code = <5 See_Comment [Autom ated message] 799-7) The system [employer] generated this result transmit josé luis reference range : /HPF. The refer ence range was not u sed to interpret th is result as normal/abnormal . WBC, UA (test code = None Seen See_Comment [Autom ated message] 70485-9) The system [employer] generated this result transmit josé luis reference range : /HPF. The refer ence range was not u sed to interpret th is result as normal/abnormal . SQUAMOUS EPITHELIAL <5 See_Comment [Automa josé luis message] (test code = 00552-3) The sy stem which generated this result transmit josé luis reference range : /HPF. The refer ence range was not u sed to interpret th is result as normal/abnormal . Specimen Source (test code = 2795) Lab Interpretation (test Abnormal code = 31291-0) [facility] + Reflex to Culture 2020-09-23 17:44:00 Test Item Value Reference Range Interpretation Comments Color, UA (test code = Yellow 5778-6) Clarity, UA (test code = Clear 5767-9) Specific Garrett, UA 1.020 1.001-1.035 (test code = 5811-5) pH, UA (test code = 7.0 5.0-8.0 5803-2) Protein, UA (test code = 100 mg/dL Negative A 73306-2) Glucose, UA (test code = 100 mg/dL Negative A 365) Ketones, UA (test code = Negative Negative 2514-8) Bilirubin, UA (test code Negative Negative = 27339-9) Blood, UA (test code = Trace Negative A 49760-1) Nitrite, UA (test code = Negative Negative 5802-4) Leukocytes, UA (test Negative Negative code = 5799-2) Urobilinogen, UA (test 0.2 mg/dL 0.2-1.0 code = 25455-2) Bacteria, UA (test code None Seen = 31638-0) RBC, UA (test code = <5 See_Comment [Autom ated message] 799-7) The system [employer] generated this result transmit josé luis reference range : /HPF. The refer ence range was not u sed to interpret th is result as normal/abnormal . WBC, UA (test code = None Seen See_Comment [Autom ated message] 71886-8) The system [employer] generated this result transmit josé luis reference range : /HPF. The refer ence range was not u sed to interpret th is result as normal/abnormal . SQUAMOUS EPITHELIAL <5 See_Comment [Automa josé luis message] (test code = 60856-7) The sy stem which generated this result transmit josé luis reference range : /HPF. The refer ence range was not u sed to interpret th is result as normal/abnormal . Specimen Source (test code = 2795) Lab Interpretation (test Abnormal code = 45589-0) [facility] URINE [id number] 17:44:00 Test Item Value Reference Range Interpretation [...] 1663) SOURCE(BEAKER) (test code = 2795) POCT-GLUCOSE [id number] 16:33:00 Test Item Value Reference Range Interpretation Comments POC-GLUCOSE METER 232 mg/dL 70-110 H : TESTED A T [facility] [address] (BEAKER) (test code [address], = 1538) [facility] 77 478: Flat Screen Worker/Techni cornelia ID = [id number] for Mily Coy 2D Echo W/Doppler(CW/PW/Color)2020-09-23 14:27:41Ejection FractionSLEH ECHO HEARTLAB MKCKESSON CPACSInterface, External Ris In - 09/23/2020 2:27 PM C DTTransthoracic Echocardiography Report (TTE) Demographics Patient Name FRANDY FORD Date of Study 09/23/2020 MERRITT Gender Male Visit Number [id number] Race Room Number 428 Number Date of 1975 Referring Physician Age 44 year(s) [employer] BALLARD Interpreting Radha Chung, Physician . 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 Procedure [...] Peak Gradient: 2.05 mmHg Estimated PASP: 47.75 mmHgLos Medanos [facility] Hospital2D Echo W/Doppler(CW/PW/Color)2020-09-23 14:27:41Ejection FractionSLEH ECHO HEARTLAB MKCKESSON CPACSInterface, External Ris In - 09/23/2020 2:27 PM CDTTransthoracic Echocardiography Report (TTE) Demographics Patient Name FRANDY FORD Date of Study 09/23/2020 MERRITT Gender Male Visit Number [id number] Race Room Number 428 Number Date of 1975 Referring Physician Age 44 year(s) [employer] BALLARD Interpr eting Radha Chung, Physician . Procedure [...] Gradient: 2.05 mmHg Estimated PASP: 47.[facility]Do[facility](CW/PW/Color)2020-09-23 14:27:41Ejection FractionSLEH ECHO HEARTLAB MKCKESSON CPACSInterface, External Ris In - 09/23/2020 2:27 PM CDTTransthoracic Echocardiography Report (TTE) Demographics Patient Name FRANDY FORD Date of Study 09/23/2020 MERRITT Gender Male Visit Number [id number] Race Room Number 428 Number Date of 1975 Referring Physician Age 44 year(s) [employer] BALLARD Interpr etiallison Chung, Physician . Procedure Type [...] Peak Gradient: 2.05 mmHg Estimated PASP: 47.75 mmHgLos Medanos Community Hospital2D Echo W/Doppler(CW/PW/Color)2020-09-23 14:27:41Ejection FractionSLEH ECHO HEARTLAB [facility]2D Echo W/Doppler(CW/PW/Color) 2020-09-23 14:27:41Ejection FractionSLE ECHO HEARTLAB [facility]2D Echo W/Doppler(CW/PW/Color)2020-09-23 14:27:41Ejection FractionSLE ECHO [facility] [id number] 11:54:00 Test Item Value Reference Range Interpretation Comments POC-GLUCOSE METER 133 mg/dL 70-110 H : TESTED A T [facility] [address] (CECILIO) (test code [address], = 1538) [facility] 77 478: Flat Screen Worker/Techni cornelia ID = [id number] for Mily Coy RAD, FOOT, MIN 3 VIEWS, [id number] 08:48:00Reason for exam:->foot wound [facility] : 1975 Sex: [...] LacyMDReport Verified Date/Time: 09/23/2020 08:48:33 Reading Location: [facility] Radiology Reading Room POCT-GLUCOSE METER 2020-09-23 08:11:00 Test Item Value Reference Range Interpretation Comments POC-GLUCOSE METER 91 mg/dL 70-110 : TESTED A T [facility] [address]17 (CECILIO) (test code = [address], 1538) [facility] 77 478: Flat Screen Worker/Techni cornelia ID = [id number] for Mily Coy Gdxdetvjdy2752-32-00 08:04:00 Test Item Value Reference Range Interpretation Comments Phosphorus (test code = 3.5 mg/dL 2.5-4.5 2777-1) ISSA (test code = ISSA) Flat Screen Worker ID - [id number] Lab Interpretation (test Normal code = 78174-5) [facility]00 Test Item Value Reference Range Interpretation Comments Phosphorus (test code = 3.5 mg/dL 2.5-4.5 2777-1) ISSA (test code = ISSA) Flat Screen Worker ID - [id number] Lab Interpretation (test Normal code = 41915-5) [facility] 08:04:00 Test Item Value Reference Range Interpretation Comments Phosphorus (test code = 3.5 mg/dL 2.5-4.5 2777-1) ISSA (test code = ISSA) Flat Screen Worker ID - [id number] Lab Interpretation (test Normal code = 82519-0) [facility]2021-06-28 08:04:00 Test Item Value Reference Range Interpretation Comments Phosphorus (test code = 3.5 mg/dL 2.5-4.5 2777-1) ISSA (test code = ISSA) Flat Screen Worker ID - [id number] Lab Interpretation (test Normal code = 70530-1) [facility]2021-06-28 08:04:00 Test Item Value Reference Range Interpretation Comments Phosphorus (test code = 3.5 mg/dL 2.5-4.5 2777-1) ISSA (test code = ISSA) Flat Screen Worker ID - [id number] Lab Interpretation (test Normal code = 10326-5) [facility]2021-06-28 08:04:00 Test Item Value Reference Range Interpretation Comments Phosphorus (test code = 3.5 mg/dL 2.5-4.5 2777-1) ISSA (test code = ISSA) Flat Screen Worker ID - [id number] Lab Interpretation (test Normal code = 31538-5) [facility]2021-06-28 08:04:00 Test Item Value Reference Range Interpretation Comments Phosphorus (test code = 3.5 mg/dL 2.5-4.5 2777-1) ISSA (test code = ISSA) Flat Screen Worker ID - [id number] Lab Interpretation (test Normal code = 98492-1) [facility] Test Item Value Reference Range Interpretation Comments PHOSPHORUS (BEAKER) (test code = 3.5 mg/dL 2.5-4.5 604) Flat Screen Worker ID - [id number] METABOLIC LOFGX3420-94-22 06:06:00 Test Item Value Reference Range Interpretation [...] S NOT APPLICABLE FOR DIALYSIS PATIEN TS. Flat Screen Worker ID - [id number] ID - [id number] ID - [id number] ID - OFCS76Nysmkvgn ID - XLVZ04Ffzulbbg ID - VJHA97Ztazeblf ID - AMLV64Ibisyhes ID - AHLA59Henitiww ID - SDXR20Fmlupjdn ID - [id number] 05:56:00 Test Item Value Reference Range Interpretation Comments MAGNESIUM (BEAKER) (test code = 1.5 mg/dL 1.5-3.0 627) Flat Screen Worker ID - [id number] ID - [id number] ID - [id number] ID - [id number] CBC W/PLT COUNT & AUTO EHEPIEHFUDYU5572-60-00 05:39:00 Test Item Value Reference Range Interpretation [...] PERCENT (BEAKER) (test code = 2801) POCT-GLUCOSE DMTVZ6527-35-62 20:58:00 Test Item Value Reference Range Interpretation Comments POC-GLUCOSE METER 126 mg/dL 70-110 H : TESTED A T SLSL 1317 (BEAKER) (test code [address], = 1538) [facility] 77 478: Flat Screen Worker/Techni cornelia ID = [id number] for Rachel Branham POCT-GLUCOSE PFYVZ1698-26-40 17:16:00 Test Item Value Reference Range Interpretation Comments POC-GLUCOSE METER 201 mg/dL 70-110 H : TESTED A T SLSL 1317 (BEAKER) (test code [address], = 1538) [facility] 77 478: Flat Screen Worker/Techni cornelia ID = [id number] for Mily Coy SARS-CoV2/RT-PCR (Asymptomatic ONLY)2020-09-22 12:08:00 Test Item Value Reference Range Interpretation Comments SARS-COV2/RT-PCR Negative Not Detected, Performanc e of the Xpert (test code = Negative, See Xpress 08865-6) external report SARS-CoV-2/F siddhartha/RSV test for linked [...] Fact Sh eet for Healthcare Prov iders: https://www.[employer] Documents/Xpert %20Xpress %37AMVR-XeX-9-F siddhartha-RSV/30 2-4508%20Rev.%2 0B%20HCP% 20Fact%20Sheet. pdf Fact Sheet for Healt hcare Patients: https://www.[employer] Documents/Xpert %20Xpress %01AILQ-GbD-4-F siddhartha-RSV/30 2-4507%20Rev.%2 0B%20Pati ent%20Fact%20Sh eet.pdf SARS-COV-2 SLSL Performed at:[facility] PERFORMING LAB Amy fine1317 (test code = Ignacio Nelson [address]-2) [place] [address] ph: [phone] [facility]2020-09-22 12:08:00 Test Item Value Reference Range Interpretation Comments SARS-COV2/RT-PCR Negative Not Detected, Performanc e of the Xpert (test code = Negative, See Xpress 37639-7) external report SARS-CoV-2/F siddhartha/RSV test for linked [...] Fact Sh eet for Healthcare Prov iders: https://www.[employer]/ Documents/Xpert %20Xpress %42FRSH-FoW-7-F siddhartha-RSV/30 2-4508%20Rev.%2 0B%20HCP% 20Fact%20Sheet. pdf Fact Sheet for Healt hcare Patients: https://www.[employer] Documents/Xpert %20Xpress %56HXFZ-WwM-9-F siddhartha-RSV/30 2-4507%20Rev.%2 0B%20Pati ent%20Fact%20Sh eet.pdf SARS-COV-2 SLSL Performed at:[facility] PERFORMING LAB Amy fine1317 (test code = Ignacio Nelson [address]-3) [place] [address] ph: [phone] [facility]As[facility]omatic ONLY)2020-09-22 12:08:00 Test Item Value Reference Range Interpretation Comments SARS-COV2/RT-PCR Negative Not Detected, Performanc e of the Xpert (test code = Negative, See Xpress 41539-7) external report SARS-CoV-2/F siddhartha/RSV test for linked [...] Fact Sh eet for Healthcare Prov iders: https://www.[employer]/ Documents/Xpert %20Xpress %69YJLJ-SrY-9-F siddhartha-RSV/30 2-4508%20Rev.%2 0B%20HCP% 20Fact%20Sheet. pdf Fact Sheet for Healt hcare Patients: https://www.[employer]/ Documents/Xpert %20Xpress %14JYLK-AbD-6-F siddhartha-RSV/30 2-4507%20Rev.%2 0B%20Pati ent%20Fact%20Sh eet.pdf SARS-COV-2 SLSL Performed at:[facility] PERFORMING LAB [facility] [place] [id number] (test code = Ignacio Sorianogayle [address]-3) [place] [address] ph: [phone] [facility] (As[facility]omatic ONLY)2020-09-22 12:08:00 Test Item Value Reference Range Interpretation Comments SARS-COV2/RT-PCR Negative Not Detected, Performanc e of the Xpert (test code = Negative, See Xpress 21803-1) external report SARS-CoV-2/F siddhartha/RSV test for linked [...] Fact Sh eet for Healthcare Prov iders: https://www.[employer]/ Documents/Xpert %20Xpress %63UFXX-ZnI-7-F siddhartha-RSV/30 2-4508%20Rev.%2 0B%20HCP% 20Fact%20Sheet. pdf Fact Sheet for Healt hcare Patients: https://www.[employer] Documents/Xpert %20Xpress %85EZXV-IrV-2-F siddhartha-RSV/30 2-4507%20Rev.%2 0B%20Pati ent%20Fact%20Sh eet.pdf SARS-COV-2 SLSL Performed at:[facility] PERFORMING LAB [place] [id number] (test code = Pierre Josh Maximus Nelson [address]-3) [place] [address] ph: [phone] [facility] (As[facility]omatic ONLY)2020-09-22 12:08:00 Test Item Value Reference Range Interpretation Comments SARS-COV2/RT-PCR Negative Not Detected, Performanc e of the Xpert (test code = Negative, See Xpress 43516-2) external report SARS-CoV-2/F siddhartha/RSV test for linked [...] Fact Sh eet for Healthcare Prov iders: https://www.[employer]com/ Documents/Xpert %20Xpress %25NPIM-AkE-4-F siddhartha-RSV/30 2-4508%20Rev.%2 0B%20HCP% 20Fact%20Sheet. pdf Fact Sheet for Healt hcare Patients: https://www.[employer]/ Documents/Xpert %20Xpress %89ZIVX-CmG-4-F siddhartha-RSV/30 2-4507%20Rev.%2 0B%20Pati ent%20Fact%20Sh eet.pdf SARS-COV-2 SLSL Performed at:[facility] PERFORMING LAB Amy fine1317 (test code = Ignacio Nelson [address]-2) [place] [address] ph: [phone] [facility] ONLY)2020-09-22 12:08:00 Test Item Value Reference Range Interpretation Comments SARS-COV2/RT-PCR Negative Not Detected, Performanc e of the Xpert (test code = Negative, See Xpress 95321-4) external report SARS-CoV-2/F siddhartha/RSV test for linked [...] Fact Sh eet for Healthcare Prov iders: https://www.[employer] Documents/Xpert %20Xpress %27IHDE-FfJ-1-F siddhartha-RSV/30 2-4508%20Rev.%2 0B%20HCP% 20Fact%20Sheet. pdf Fact Sheet for Healt hcare Patients: https://www.[employer] Documents/Xpert %20Xpress %98NYRK-LoS-6-F siddhartha-RSV/30 2-4507%20Rev.%2 0B%20Pati ent%20Fact%20Sh eet.pdf SARS-COV-2 SLSL Performed at:[facility] PERFORMING LAB [facility] [place] [place] [id number] (test code = [facility] Maximus Nelson [address]-2) [place] [address] ph: [phone] [facility] (As[facility]omatic ONLY)2020-09-22 12:08:00 Test Item Value Reference Range Interpretation Comments SARS-COV2/RT-PCR Negative Not Detected, Performanc e of the Xpert (test code = Negative, See Xpress 06035-3) external report SARS-CoV-2/F siddhartha/RSV test for linked [...] Healthcare Prov iders: https://www.cep heid.com/ Documents/Xpert %20Xpress %53QXMS-DwR-0-F siddhartha-RSV/30 1070%20Rev.%2 0B%20HCP% 20Fact%20Sheet. pdf Fact Sheet for Healt hcare Patients: https://www.[employer]/ Documents/Xpert %20Xpress %89VETX-CdF-8-F siddhartha-RSV/30 2-4507%20Rev.%2 0B%20Pati ent%20Fact%20Sh eet.pdf SARS-COV-2 SLSL Performed at:[facility] PERFORMING LAB [place] starkstal1317 (test code = [address] [address]-6) [place] [address] ph: [phone] [facility])2020-09-22 12:08:00 Test Item Value Reference Range Interpretation Comments SARS-COV2/RT-PCR Negative Not Detected, Performanc e of the Xpert (test code = Negative, See Xpress 0655072) external report SARS-CoV-2/F siddhartha/RSV test for linked [...] sooner.Fact She et for Healthcare Prov iders: https://www.[employer] Documents/Xpert %20Xpress %34LQVV-FwG-7-F siddhartha-RSV/30 2-4508%20Rev.%2 0B%20HCP% 20Fact%20Sheet. pdfFact Sheet for Healt hcare Patients: https://www.[employer] Documents/Xpert %20Xpress %00PRRB-OfK-5-F siddhartha-RSV/30 2-4507%20Rev.%2 0B%20Pati ent%20Fact%20Sh eet.pdf SARS-COV-2 SLSL Performed at:[facility] PERFORMING LAB Amy Graff [id number] (test code = Ignacio Nelsno 8115246) [place] [address] ph: [phone] CBC W/PLT COUNT & AUTO OZNQBIOJCTRG9977-65-28 07:40:00 Test Item Value Reference Range Interpretation [...] H PERCENT (BEAKER) (test code = 2801) PT/cOVN3853-85-64 07:34:00 Test Item Value Reference Interpretation Comments [...] PTT (test code = 28.0 See_Comment Final 51297-8) Information (Auto Output) [Automated message] The system [...] valves. Lab Interpretation Abnormal (test code = 50126-4) [facility] 07:34:00 Test Item Value Reference Interpretation Comments [...] PTT (test code = 28.0 See_Comment Final 86323-3) Information (Auto Output) [Automated message] The system [...] valves. Lab Interpretation Abnormal (test code = 24749-8) [facility]jVSL7398-35-01 07:34:00 Test Item Value Reference Interpretation Comments [...] PTT (test code = 28.0 See_Comment Final 10114-6) Information (Auto Output) [Automated message] The system [...] valves. Lab Interpretation Abnormal (test code = 12911-9) [facility]oTFS8098-04-26 07:34:00 Test Item Value Reference Interpretation Comments [...] PTT (test code = 28.0 See_Comment Final 92094-9) Information (Auto Output) [Automated message] The system which generated this result transmitted reference range : 23.0 - 35.0 seconds. The reference range was not used to interpret this result as normal/abnormal . ISAS (test code = RECOMMENDED ISSA) COUMADIN/WARFARIN INR THERAPY RANGESSTANDARD DOSE: 2.0 - 3.0 Includes: PROPHYLAXIS for venous thrombosis, systemic embolization; TREATMENT for venous thrombosis and/or pulmonary embolus.HIGH RISK: Target INR is 2.5-3.5 for patients with mechanical heart valves. Lab Interpretation Abnormal (test code = 00930-7) [facility]HTY4806-[facility]-08 07:34:00 Test Item Value Reference Interpretation Comments [...] PTT (test code = 28.0 See_Comment Final 95692-7) Information (Auto Output) [Automated message] The system [...] valves. Lab Interpretation Abnormal (test code = 76344-8) [facility]xKPB7766-75-44 07:34:00 Test Item Value Reference Interpretation Comments [...] PTT (test code = 28.0 See_Comment Final 74860-2) Information (Auto Output) [Automated message] The system [...] valves. Lab Interpretation Abnormal (test code = 75990-9) [facility]/iCBZ6755-00-38 07:34:00 Test Item Value Reference Interpretation Comments [...] PTT (test code = 28.0 See_Comment Final 79467-7) Information (Auto Output) [Automated message] The system [...] valves. Lab Interpretation Abnormal (test code = 75010-8) [facility]NJSY9905-90-47 07:34:00 Test Item Value Reference Range Interpretation Comments PROTIME (BEAKER) (test 14.2 seconds 9.3-12.0 H Final Information code = 759) (Auto Output) INR (BEAKER) (test 1.30 See_Comment Final Inf ormation code = 370) (Auto Output) [Automated mess age] The system [employer] generated this result transmit josé luis reference [...] 0-100 H (BEAKER) (test code = 700) Flat Screen Worker ID - [id number] U0385-53-13 07:29:00 Test Item Value Reference Range Interpretation Comments Troponin I (test code = 0.05 ng/mL 0-0.15 80800-2) ISSA (test code = ISSA) Troponin I [...] [id number] Lab Interpretation (test Normal code = 05236-7) [facility] [id number] 07:29:00 Test Item Value Reference Range Interpretation Comments Troponin I (test code = 0.05 ng/mL 0-0.15 83720-6) ISSA (test code = ISSA) Troponin I [...] failure, acidosis, acute neurological disease, and persistent tachyarrhythmia.[facility] ID - [id number] Lab Interpretation (test Normal code = 47473-2) [facility] [id number] 07:29:00 Test Item Value Reference Range Interpretation Comments Troponin I (test code = 0.05 ng/mL 0-0.15 00202-6) ISSA (test code = ISSA) Troponin I [...] failure, acidosis, acute neurological disease, and persistent tachyarrhythmia.[facility] ID - [id number] Lab Interpretation (test Normal code = 10474-1) [facility] [id number] 07:29:00 Test Item Value Reference Range Interpretation Comments Troponin I (test code = 0.05 ng/mL 0-0.15 82725-2) ISSA (test code = ISSA) Troponin I [...] failure, acidosis, acute neurological disease, and persistent tachyarrhythmia.[facility] ID - [id number] Lab Interpretation (test Normal code = 21091-9) [facility] [id number] 07:29:00 Test Item Value Reference Range Interpretation Comments Troponin I (test code = 0.05 ng/mL 0.00-0.15 86495-3) ISSA (test code = ISSA) Troponin I [...] failure, acidosis, acute neurological disease, and persistent tachyarrhythmia.[facility] ID - [id number] Lab Interpretation (test Normal code = 41672-0) [facility] [id number] 07:29:00 Test Item Value Reference Range Interpretation Comments Troponin I (test code = 0.05 ng/mL 0.00-0.15 52908-6) ISSA (test code = ISSA) Troponin I [...] failure, acidosis, acute neurological disease, and persistent tachyarrhythmia.[facility] ID - [id number] Lab Interpretation (test Normal code = 93664-5) [facility] [id number] 07:29:00 Test Item Value Reference Range Interpretation Comments Troponin I (test code = 0.05 ng/mL 0.00-0.15 22867-0) ISSA (test code = ISSA) Troponin I [...] failure, acidosis, acute neurological disease, and persistent tachyarrhythmia.[facility] ID - [id number] Lab Interpretation (test Normal code = 33591-9) [facility] [id number] 07:29:00 Test Item Value Reference Range Interpretation [...] failure, acidosis, acute neurological disease, and persistent tachyarrhythmia.Flat Screen Worker ID - [id number] METABOLIC FMIFO3838-88-50 07:25:00 Test Item Value Reference Range Interpretation [...] S NOT APPLICABLE FOR DIALYSIS PATIEN TS. 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 No pneumothorax.Mild cardiomegaly. Signed: Moose Petersen MDRort Verified Date/Time: 09/22/2020 06:44:53 0 6:44 AMXR chest 1 view portable / tmuavsq0813-09-37 06:44:00Interface, External Ris In - 09/22/2020 6:47 [...] cardiomegaly.Signed: Moose Petersen Verified Date/Time: 09/22/2020 06:44:53 [facility] / foqxeux5178-03-45 06:44:00 Interface, External Ris In - 09/22/2020 [...] Signed: Moose Petersen Verified Date/Time: 09/22/2020 06:44:53 [facility] / qdxlkae0424-24-26 06:44:00 Interface, External Ris In - 09/22/2020 [...] Signed: Moose Petersen Verified Date/Time: 09/22/2020 06:44:53 [facility] / dmzxqbj5616-77-87 06:44:00 Interface, External Ris In - 09/22/2020 [...] Signed: Moose Petersen Verified Date/Time: 09/22/2020 06:44:53 [facility] Uhyzdaolpdjprf1335-10-65 06:40:53 Test Item Value Reference Range Interpretation [...] 74 BPM.Abnormal conduction noted: LAFB.T waves abnormal. [place] is normal. Other findings include: prolonged QTc interval. Clinical Impression: abnormal ECG Lab Interpretation Abnormal (test code = 44950-9) [facility] Dghqncxdayfxfd1808-77-14 06:40:53 Test Item Value Reference Range Interpretation [...] 74 BPM.Abnormal conduction noted: LAFB.T waves abnormal. [place] is normal. Other findings include: prolonged QTc interval. Clinical Impression: abnormal ECG Lab Interpretation Abnormal (test code = 07815-7) [facility] Duyfkktjdnwqly1088-94-51 06:40:53 Test Item Value Reference Range Interpretation [...] 74 BPM.Abnormal conduction noted: LAFB.T waves abnormal. [place] is normal. Other findings include: prolonged QTc interval. Clinical Impression: abnormal ECG Lab Interpretation Abnormal (test code = 95863-6) [facility] Njspmbthlhmpgv4758-05-99 06:40:53 Test Item Value Reference Range Interpretation [...] 74 BPM.Abnormal conduction noted: LAFB.T waves abnormal. [place] is normal. Other findings include: prolonged QTc interval. Clinical Impression: abnormal ECG Lab Interpretation Abnormal (test code = 07742-6) [facility] Emhksuoftbztwi3072-81-41 06:40:53 Test Item Value Reference Range Interpretation [...] 74 BPM.Abnormal conduction noted: LAFB.T waves abnormal. [place] is normal. Other findings include: prolonged QTc interval. Clinical Impression: abnormal ECG Lab Interpretation Abnormal (test code = 35623-4) [facility] Zuskoulhusxfsv3468-37-37 06:40:53 Test Item Value Reference Range Interpretation [...] 74 BPM.Abnormal conduction noted: LAFB.T waves abnormal. [place] is normal. Other findings include: prolonged QTc interval. Clinical Impression: abnormal ECG Lab Interpretation Abnormal (test code = 07704-4) [facility] Dptrbnibuzvlai3817-94-46 06:40:53 Test Item Value Reference Range Interpretation [...] 74 BPM.Abnormal conduction noted: LAFB.T waves abnormal. [place] is normal. Other findings include: prolonged QTc interval. Clinical Impression: abnormal ECG Lab Interpretation Abnormal (test code = 70193-5) [facility]-PNKGOMC0372-17-25 00:00:00Ordered by an unspecified provider.[facility] HospitalE[facility]-GRCTRES3150-59-44 00:00:00 Ordered by an unspecified provider.[facility]-SCANNED 2020-09-22 00:00:00Ordered by an unspecified provider.[facility]-JOEQNFG2082-59-04 00:00:00Ordered by an unspecified provider.[facility] Description: Natriuretic peptide B [Mass/volume] in Serum or Xqgiix1557-17-78 15:06:00 Test Item Value Reference Range Interpretation Comments B-Type Natriuretic Peptide (test 614.6 pg/mL 0.0-100.0 H code = 76188-3) [facility] Description: Natriuretic peptide B [Mass/volume] in Serum or Aqtqdg3687-28-10 15:06:00 Test Item Value Reference Range Interpretation Comments B-Type Natriuretic Peptide (test 614.6 pg/mL 0.0-100.0 H code = 41999-2) [facility] Description: Natriuretic peptide B [Mass/volume] in Serum or Lpsnhb1930-47-62 15:06:00 Test Item Value Reference Range Interpretation Comments B-Type Natriuretic Peptide (test 614.6 pg/mL 0.0-100.0 H code = 88111-1) [facility] Description: Natriuretic peptide B [Mass/volume] in Serum or Bdbwmm7881-98-92 15:06:00 Test Item Value Reference Range Interpretation Comments B-Type Natriuretic Peptide (test 614.6 pg/mL 0.0-100.0 H code = 42980-9) [facility] Description: Natriuretic peptide B [Mass/volume] in Serum or Irhemu5516-93-78 15:06:00 Test Item Value Reference Range Interpretation Comments B-Type Natriuretic Peptide (test 614.6 pg/mL 0.0-100.0 H code = 29283-7) [facility] Description: Natriuretic peptide B [Mass/volume] in Serum or Moqnvs0534-18-13 15:06:00 Test Item Value Reference Range Interpretation Comments B-Type Natriuretic Peptide (test 614.6 pg/mL 0.0-100.0 H code = 54914-9) [facility] Description: Natriuretic peptide B [Mass/volume] in Serum or Kamfnv9882-84-30 15:06:00 Test Item Value Reference Range Interpretation Comments B-Type Natriuretic Peptide (test 614.6 pg/mL 0.0-100.0 H code = 82741-8) [facility] Description: Natriuretic peptide B [Mass/volume] in Serum or Xfsuie7824-69-51 15:06:00 Test Item Value Reference Range Interpretation Comments B-Type Natriuretic Peptide (test 614.6 pg/mL 0.0-100.0 H code = 89542-0) [facility] Description: Natriuretic peptide B [Mass/volume] in Serum or Vkhmch5985-55-44 15:06:00 Test Item Value Reference Range Interpretation Comments B-Type Natriuretic Peptide (test 614.6 pg/mL 0.0-100.0 H code = 21379-2) [facility] Description: Natriuretic peptide B [Mass/volume] in Serum or Upugdo7199-26-57 15:06:00 Test Item Value Reference Range Interpretation Comments B-Type Natriuretic Peptide (test 614.6 pg/mL 0.0-100.0 H code = 40151-6) [facility] Description: Natriuretic peptide B [Mass/volume] in Serum or Euaeqi0854-69-56 15:06:00 Test Item Value Reference Range Interpretation Comments B-Type Natriuretic Peptide (test 614.6 pg/mL 0.0-100.0 H code = 96078-3) [facility] Description: Natriuretic peptide B [Mass/volume] in Serum or Obpzad5379-46-12 15:06:00 Test Item Value Reference Range Interpretation Comments B-Type Natriuretic Peptide (test 614.6 pg/mL 0.0-100.0 H code = 47300-0) [facility] Description: Natriuretic peptide B [Mass/volume] in Serum or Ubyhah8672-28-42 15:06:00 Test Item Value Reference Range Interpretation Comments B-Type Natriuretic Peptide (test 614.6 pg/mL 0.0-100.0 H code = 67518-8) [facility] Description: Natriuretic peptide B [Mass/volume] in Serum or Qpbsnz3146-88-35 15:06:00 Test Item Value Reference Range Interpretation Comments B-Type Natriuretic Peptide (test 614.6 pg/mL 0.0-100.0 H code = 94331-5) [facility] Description: Natriuretic peptide B [Mass/volume] in Serum or Orqest5276-00-99 15:06:00 Test Item Value Reference Range Interpretation Comments B-Type Natriuretic Peptide (test 614.6 pg/mL 0.0-100.0 H code = 32873-6) [facility] Description: Natriuretic peptide B [Mass/volume] in Serum or Xhagvv1522-16-63 15:06:00 Test Item Value Reference Range Interpretation Comments B-Type Natriuretic Peptide (test 614.6 pg/mL 0.0-100.0 H code = 19322-6) [facility] Description: Natriuretic peptide B [Mass/volume] in Serum or Gdvagy3340-00-60 15:06:00 Test Item Value Reference Range Interpretation Comments B-Type Natriuretic Peptide (test 614.6 pg/mL 0.0-100.0 H code = 33639-4) [facility] Description: Natriuretic peptide B [Mass/volume] in Serum or Ldosug4755-73-45 15:06:00 Test Item Value Reference Range Interpretation Comments B-Type Natriuretic Peptide (test 614.6 pg/mL 0.0-100.0 H code = 90205-3) [facility] Description: Natriuretic peptide B [Mass/volume] in Serum or Gtlidr3648-04-50 15:06:00 Test Item Value Reference Range Interpretation Comments B-Type Natriuretic Peptide (test 614.6 pg/mL 0.0-100.0 H code = 97849-6) [facility] Description: Natriuretic peptide B [Mass/volume] in Serum or Wkhpuh6326-52-67 15:06:00 Test Item Value Reference Range Interpretation Comments B-Type Natriuretic Peptide (test 614.6 pg/mL 0.0-100.0 H code = 85626-8) [facility] Description: Natriuretic peptide B [Mass/volume] in Serum or Artioi2659-81-25 15:06:00 Test Item Value Reference Range Interpretation Comments B-Type Natriuretic Peptide (test 614.6 pg/mL 0.0-100.0 H code = 95187-2) [facility] Description: Natriuretic peptide B [Mass/volume] in Serum or [id number] 15:06:00 Test Item Value Reference Range Interpretation Comments B-Type Natriuretic Peptide (test 614.6 pg/mL 0.0-100.0 H code = 40976-9) [facility] Description: Lipid [id number] 01:45:00 Test Item Value Reference Range Interpretation Comments Cholesterol, Total (test code = 207 mg/dL 100-199 H 3-3) Triglycerides (test code = 2571-8) 126 mg/dL 0-149 HDL Cholesterol (test code = 37 mg/dL >39 L 2085-9) VLDL Cholesterol Renuka (test code = 23 mg/dL 5-40 54631-9) LDL Chol Calc (NIH) (test code = 147 mg/dL 0-99 H 26016-5) Comment: (test code = 24692-0) [facility] Description: Lipid [id number] 01:45:00 Test Item Value Reference Range Interpretation Comments Cholesterol, Total (test code = 207 mg/dL 100-199 H 3-3) Triglycerides (test code = 2571-8) 126 mg/dL 0-149 HDL Cholesterol (test code = 37 mg/dL >39 L 2085-9) VLDL Cholesterol Renuka (test code = 23 mg/dL 5-40 42352-9) LDL Chol Calc (NIH) (test code = 147 mg/dL 0-99 H 17241-6) Comment: (test code = 79040-8) [facility] Description: Lipid [id number] 01:45:00 Test Item Value Reference Range Interpretation Comments Cholesterol, Total (test code = 207 mg/dL 100-199 H 3-3) Triglycerides (test code = 2571-8) 126 mg/dL 0-149 HDL Cholesterol (test code = 37 mg/dL >39 L 5-9) VLDL Cholesterol Renuka (test code = 23 mg/dL 5-40 04942-1) LDL Chol Calc (NIH) (test code = 147 mg/dL 0-99 H 02260-0) Comment: (test code = 53898-2) [facility] Description: Lipid [id number] 01:45:00 Test Item Value Reference Range Interpretation Comments Cholesterol, Total (test code = 207 mg/dL 100-199 H 3-3) Triglycerides (test code = 2571-8) 126 mg/dL 0-149 HDL Cholesterol (test code = 37 mg/dL >39 L 2085-9) VLDL Cholesterol Renuka (test code = 23 mg/dL 5-40 92695-2) LDL Chol Calc (NIH) (test code = 147 mg/dL 0-99 H 23153-8) Comment: (test code = 85486-6) [facility] Description: Lipid [id number] 01:45:00 Test Item Value Reference Range Interpretation Comments Cholesterol, Total (test code = 207 mg/dL 100-199 H 2093-3) Triglycerides (test code = 2571-8) 126 mg/dL 0-149 HDL Cholesterol (test code = 37 mg/dL >39 L 5-9) VLDL Cholesterol Renuka (test code = 23 mg/dL 5-40 36078-4) LDL Chol Calc (NIH) (test code = 147 mg/dL 0-99 H 31096-6) Comment: (test code = 00555-4) [facility] Description: Lipid [id number] 01:45:00 Test Item Value Reference Range Interpretation Comments Cholesterol, Total (test code = 207 mg/dL 100-199 H 2093-3) Triglycerides (test code = 2571-8) 126 mg/dL 0-149 HDL Cholesterol (test code = 37 mg/dL >39 L 2084-9) VLDL Cholesterol Renuka (test code = 23 mg/dL 5-40 44183-3) LDL Chol Calc (NIH) (test code = 147 mg/dL 0-99 H 05505-9) Comment: (test code = 02126-1) [facility] Description: Lipid [id number] 01:45:00 Test Item Value Reference Range Interpretation Comments Cholesterol, Total (test code = 207 mg/dL 100-199 H 2093-3) Triglycerides (test code = 2571-8) 126 mg/dL 0-149 HDL Cholesterol (test code = 37 mg/dL >39 L 2084-9) VLDL Cholesterol Renuka (test code = 23 mg/dL 5-40 55087-3) LDL Chol Calc (NIH) (test code = 147 mg/dL 0-99 H 66099-0) Comment: (test code = 32482-7) [facility] Description: Lipid [id number] 01:45:00 Test Item Value Reference Range Interpretation Comments Cholesterol, Total (test code = 207 mg/dL 100-199 H 2093-3) Triglycerides (test code = 2571-8) 126 mg/dL 0-149 HDL Cholesterol (test code = 37 mg/dL >39 L 5-9) VLDL Cholesterol Renuka (test code = 23 mg/dL 5-40 48376-9) LDL Chol Calc (NIH) (test code = 147 mg/dL 0-99 H 41092-8) Comment: (test code = 15247-2) [facility] Description: Lipid [id number] 01:45:00 Test Item Value Reference Range Interpretation Comments Cholesterol, Total (test code = 207 mg/dL 100-199 H 3-3) Triglycerides (test code = 2571-8) 126 mg/dL 0-149 HDL Cholesterol (test code = 37 mg/dL >39 L 5-9) VLDL Cholesterol Renuka (test code = 23 mg/dL 5-40 15009-9) LDL Chol Calc (NIH) (test code = 147 mg/dL 0-99 H 16748-4) Comment: (test code = 83038-9) [facility] Description: Lipid [id number] 01:45:00 Test Item Value Reference Range Interpretation Comments Cholesterol, Total (test code = 207 mg/dL 100-199 H 3-3) Triglycerides (test code = 2571-8) 126 mg/dL 0-149 HDL Cholesterol (test code = 37 mg/dL >39 L 5-9) VLDL Cholesterol Renuka (test code = 23 mg/dL 5-40 84936-1) LDL Chol Calc (NIH) (test code = 147 mg/dL 0-99 H 41895-1) Comment: (test code = 50506-8) [facility] Description: Lipid [id number] 01:45:00 Test Item Value Reference Range Interpretation Comments Cholesterol, Total (test code = 207 mg/dL 100-199 H 3-3) Triglycerides (test code = 2571-8) 126 mg/dL 0-149 HDL Cholesterol (test code = 37 mg/dL >39 L 5-9) VLDL Cholesterol Renuka (test code = 23 mg/dL 5-40 64535-5) LDL Chol Calc (NIH) (test code = 147 mg/dL 0-99 H 29162-9) Comment: (test code = 97399-4) [facility] Description: Lipid [id number] 01:45:00 Test Item Value Reference Range Interpretation Comments Cholesterol, Total (test code = 207 mg/dL 100-199 H 2093-3) Triglycerides (test code = 2571-8) 126 mg/dL 0-149 HDL Cholesterol (test code = 37 mg/dL >39 L 5-9) VLDL Cholesterol Renuka (test code = 23 mg/dL 5-40 66138-9) LDL Chol Calc (NIH) (test code = 147 mg/dL 0-99 H 23158-1) Comment: (test code = 15014-9) [facility] Description: Lipid [id number] 01:45:00 Test Item Value Reference Range Interpretation Comments Cholesterol, Total (test code = 207 mg/dL 100-199 H 3-3) Triglycerides (test code = 2571-8) 126 mg/dL 0-149 HDL Cholesterol (test code = 37 mg/dL >39 L 5-9) VLDL Cholesterol Renuka (test code = 23 mg/dL 5-40 00741-9) LDL Chol Calc (NIH) (test code = 147 mg/dL 0-99 H 18743-3) Comment: (test code = 23255-6) [facility] Description: Lipid [id number] 01:45:00 Test Item Value Reference Range Interpretation Comments Cholesterol, Total (test code = 207 mg/dL 100-199 H 3-3) Triglycerides (test code = 2571-8) 126 mg/dL 0-149 HDL Cholesterol (test code = 37 mg/dL >39 L 5-9) VLDL Cholesterol Renuka (test code = 23 mg/dL 5-40 20516-7) LDL Chol Calc (NIH) (test code = 147 mg/dL 0-99 H 09211-2) Comment: (test code = 48996-7) [facility] Description: Lipid [id number] 01:45:00 Test Item Value Reference Range Interpretation Comments Cholesterol, Total (test code = 207 mg/dL 100-199 H 3-3) Triglycerides (test code = 2571-8) 126 mg/dL 0-149 HDL Cholesterol (test code = 37 mg/dL >39 L 5-9) VLDL Cholesterol Renuka (test code = 23 mg/dL 5-40 79906-8) LDL Chol Calc (NIH) (test code = 147 mg/dL 0-99 H 86416-8) Comment: (test code = 26819-1) [facility] Description: Lipid [id number] 01:45:00 Test Item Value Reference Range Interpretation Comments Cholesterol, Total (test code = 207 mg/dL 100-199 H 2093-3) Triglycerides (test code = 2571-8) 126 mg/dL 0-149 HDL Cholesterol (test code = 37 mg/dL >39 L 2085-9) VLDL Cholesterol Renuka (test code = 23 mg/dL 5-40 19549-5) LDL Chol Calc (NIH) (test code = 147 mg/dL 0-99 H 97631-6) Comment: (test code = 75447-6) [facility] Description: Lipid [id number] 01:45:00 Test Item Value Reference Range Interpretation Comments Cholesterol, Total (test code = 207 mg/dL 100-199 H 2093-3) Triglycerides (test code = 2571-8) 126 mg/dL 0-149 HDL Cholesterol (test code = 37 mg/dL >39 L 2085-9) VLDL Cholesterol Renuka (test code = 23 mg/dL 5-40 22435-6) LDL Chol Calc (NIH) (test code = 147 mg/dL 0-99 H 55442-4) Comment: (test code = 79121-6) [facility] Description: Lipid [id number] 01:45:00 Test Item Value Reference Range Interpretation Comments Cholesterol, Total (test code = 207 mg/dL 100-199 H 2093-3) Triglycerides (test code = 2571-8) 126 mg/dL 0-149 HDL Cholesterol (test code = 37 mg/dL >39 L 2085-9) VLDL Cholesterol Renuka (test code = 23 mg/dL 5-40 36599-8) LDL Chol Calc (NIH) (test code = 147 mg/dL 0-99 H 89752-0) Comment: (test code = 18908-7) [facility] Description: Lipid [id number] 01:45:00 Test Item Value Reference Range Interpretation Comments Cholesterol, Total (test code = 207 mg/dL 100-199 H 2093-3) Triglycerides (test code = 2571-8) 126 mg/dL 0-149 HDL Cholesterol (test code = 37 mg/dL >39 L 2085-9) VLDL Cholesterol Renuka (test code = 23 mg/dL 5-40 05345-4) LDL Chol Calc (NIH) (test code = 147 mg/dL 0-99 H 79009-7) Comment: (test code = 19200-7) [facility] Description: Lipid [id number] 01:45:00 Test Item Value Reference Range Interpretation Comments Cholesterol, Total (test code = 207 mg/dL 100-199 H 2093-3) Triglycerides (test code = 2571-8) 126 mg/dL 0-149 HDL Cholesterol (test code = 37 mg/dL >39 L 5-9) VLDL Cholesterol Renuka (test code = 23 mg/dL 5-40 50349-4) LDL Chol Calc (NIH) (test code = 147 mg/dL 0-99 H 80615-1) Comment: (test code = 08708-2) [facility] Description: Lipid [id number] 01:45:00 Test Item Value Reference Range Interpretation Comments Cholesterol, Total (test code = 207 mg/dL 100-199 H 2093-3) Triglycerides (test code = 2571-8) 126 mg/dL 0-149 HDL Cholesterol (test code = 37 mg/dL >39 L 5-9) VLDL Cholesterol Renuka (test code = 23 mg/dL 5-40 88831-0) LDL Chol Calc (NIH) (test code = 147 mg/dL 0-99 H 06569-3) Comment: (test code = 75225-1) [facility] Description: Lipid [id number] 01:45:00 Test Item Value Reference Range Interpretation Comments Cholesterol, Total (test code = 207 mg/dL 100-199 H 2093-3) Triglycerides (test code = 2571-8) 126 mg/dL 0-149 HDL Cholesterol (test code = 37 mg/dL >39 L 5-9) VLDL Cholesterol Renuka (test code = 23 mg/dL 5-40 55068-7) LDL Chol Calc (NIH) (test code = 147 mg/dL 0-99 H 52072-1) Comment: (test code = 21324-2) [facility] Description: Comp. Metabolic Panel (14)2020-08-16 01:19:00 Test Item Value Reference Range Interpretation Comments Glucose (test code 424 mg/dL 65-99 H = 2345-7) BUN (test code = 27 mg/dL 6-24 H 3094-0) Creatinine (test 1.88 mg/dL 0.76-1.27 H code = 2160-0) eGFR If NonAfricn 42 >59 L Am (test code = mL/min/1.73 85377-9) eGFR If Africn Am 48 >59 L [facility] currently (test code = mL/min/1.73 [place] [address]-7) compliance with the current recommendations of the [employer]. [facility] [place] will update re porting as new guidelin es are published from the NKF-ASN Task force.
<br/ >Perfor med by:
[facility] Kaur (HD)

BUN/Creatinine 14 9-20 Ratio (test code = 3097-3) Sodium (test code = 138 mmol/L 513-259 2710-2) Potassium (test 4.2 mmol/L 3.5-5.2 code = 2823-3) Chloride (test code 98 mmol/L 96-106 = 2075-0) Carbon Dioxide, 28 mmol/L 20-29 Total (test code = 2027-9) Calcium (test code 8.4 mg/dL 8.7-10.2 L = 36726-1) Protein, Total 6.1 g/dL 6.0-8.5 (test code = 2885-2) Albumin (test code 3.0 g/dL 4.0-5.0 L = 1751-7) Globulin, Total 3.1 g/dL 1.5-4.5 (test code = 63786-0) A/G Ratio (test 1.0 1.2-2.2 L code = 1759-0) Bilirubin, Total 0.6 mg/dL 0.0-1.2 (test code = 1975-2) Alkaline 130 IU/L 48-121 H Phosphatase (test Pl ease note code = 6768-6) reference int erval change
<b r/>Perf ormed by:
[facility] ([facility])

AST (SGOT) (test 15 IU/L 0-40 code = 1920-8) ALT (SGPT) (test 18 IU/L 0-44 code = 1742-6) [facility] Description: Comp. Metabolic Panel (14)2020-08-16 01:19:00 Test Item Value Reference Range Interpretation Comments Glucose (test code 424 mg/dL 65-99 H = 2345-7) BUN (test code = 27 mg/dL 6-24 H 3094-0) Creatinine (test 1.88 mg/dL 0.76-1.27 H code = 2160-0) eGFR If NonAfricn 42 >59 L Am (test code = mL/min/1.73 23349-9) eGFR If Africn Am 48 >59 L [facility] currently (test code = mL/min/1.73 [place] 854[address]-3) compliance with the current recommendations of the National Kid[employer]. [facility] [place] will update re porting as new guidelin es are published from the NKF-ASN Task force.
<br/ >Perfor med by:
[facility] [place] Kaur (HD)

BUN/Creatinine 14 9-20 Ratio (test code = 3097-3) Sodium (test code = 138 mmol/L 770-877 0029-2) Potassium (test 4.2 mmol/L 3.5-5.2 code = 2823-3) Chloride (test code 98 mmol/L 96-106 = 5-0) Carbon Dioxide, 28 mmol/L 20-29 Total (test code = 2027-) Calcium (test code 8.4 mg/dL 8.7-10.2 L = 72277-0) Protein, Total 6.1 g/dL 6.0-8.5 (test code = 2885-2) Albumin (test code 3.0 g/dL 4.0-5.0 L = 1751-7) Globulin, Total 3.1 g/dL 1.5-4.5 (test code = 46607-3) A/G Ratio (test 1.0 1.2-2.2 L code [...] >59 L Am (test code = mL/min/1.73 38736-2) eGFR If Africn Am 48 >59 L [facility] currently (test code = mL/min/1.73 [place] [address]-6) compliance with the current recommendations of the [employer]. [facility] [place] will update re porting as new guidelin es are published from the NKF-ASN Task force.
<br/ >Perfor med by:
[facility] [place] Kaur (HD)

BUN/Creatinine 14 9-20 Ratio (test code = 3097-3) Sodium (test code = 138 mmol/L 416-526 3458-2) Potassium (test 4.2 mmol/L 3.5-5.2 code = 2823-3) Chloride (test code 98 mmol/L 96-106 = 5-0) Carbon Dioxide, 28 mmol/L 20-29 Total (test code = 2027-) Calcium (test code 8.4 mg/dL 8.7-10.2 L = 66140-0) Protein, Total 6.1 g/dL 6.0-8.5 (test code = 2885-2) Albumin (test code 3.0 g/dL 4.0-5.0 L = 1751-7) Globulin, Total 3.1 g/dL 1.5-4.5 (test code = 38326-3) A/G Ratio (test 1.0 1.2-2.2 L code [...] >59 L Am (test code = mL/min/1.73 03507-0) eGFR If Africn Am 48 >59 L [facility] currently (test code = mL/min/1.73 [place] 52567-9) compliance with the current recommendations of the [employer]. [facility] [place] will update re porting as new guidelin es are published from the NKF-ASN Task force.
<br/ >Perfor med by:
[facility] Kaur (HD)

BUN/Creatinine 14 9-20 Ratio (test code = 3097-3) Sodium (test code = 138 mmol/L 589-900 6824-2) Potassium (test 4.2 mmol/L 3.5-5.2 code = 2823-3) Chloride (test code 98 mmol/L 96-106 = 5-0) Carbon Dioxide, 28 mmol/L 20-29 Total (test code = 2027-) Calcium (test code 8.4 mg/dL 8.7-10.2 L = 86345-2) Protein, Total 6.1 g/dL 6.0-8.5 (test code = 2885-2) Albumin (test code 3.0 g/dL 4.0-5.0 L = 1751-7) Globulin, Total 3.1 g/dL 1.5-4.5 (test code = 95189-9) A/G Ratio (test 1.0 1.2-2.2 L code [...] >59 L Am (test code = mL/min/1.73 87424-7) eGFR If Africn Am 48 >59 L [facility] currently (test code = mL/min/1.73 [place] 71328-8) compliance with the current recommendations of the [employer] Kid[employer]. [facility] [place] will update re porting as new guidelin es are published from the NKF-ASN Task force.
<br/ >Perfor med by:
[facility] (HD)

BUN/Creatinine 14 9-20 Ratio (test code = 3097-3) Sodium (test code = 138 mmol/L 104-909 3260-2) Potassium (test 4.2 mmol/L 3.5-5.2 code = 2823-3) Chloride (test code 98 mmol/L 96-106 = 2075-0) Carbon Dioxide, 28 mmol/L 20-29 Total (test code = 2027-) Calcium (test code 8.4 mg/dL 8.7-10.2 L = 26789-2) Protein, Total 6.1 g/dL 6.0-8.5 (test code = 2885-2) Albumin (test code 3.0 g/dL 4.0-5.0 L = 1751-7) Globulin, Total 3.1 g/dL 1.5-4.5 (test code = 44748-7) A/G Ratio (test 1.0 1.2-2.2 L code [...] >59 L Am (test code = mL/min/1.73 56126-9) eGFR If Africn Am 48 >59 L [facility] currently (test code = mL/min/1.73 [place] 14769-3) compliance with the current recommendations of the [employer]. [facility] [place] will update re porting as new guidelin es are published from the [facility]F-ASN Task force.
<br/ >Perfor med by:
[facility] Vincent (HD)

BUN/Creatinine 14 9-20 Ratio (test code = 3097-3) Sodium (test code = 138 mmol/L 733-728 5401-2) Potassium (test 4.2 mmol/L 3.5-5.2 code = 2823-3) Chloride (test code 98 mmol/L 96-106 = 2075-0) Carbon Dioxide, 28 mmol/L 20-29 Total (test code = 8-9) Calcium (test code 8.4 mg/dL 8.7-10.2 L = 04219-8) Protein, Total 6.1 g/dL 6.0-8.5 (test code = 2885-2) Albumin (test code 3.0 g/dL 4.0-5.0 L = 1751-7) Globulin, Total 3.1 g/dL 1.5-4.5 (test code = 97170-7) A/G Ratio (test 1.0 1.2-2.2 L code [...] >59 L Am (test code = mL/min/1.73 22333-6) eGFR If Africn Am 48 >59 L [facility] currently (test code = mL/min/1.73 [place] 49842-4) compliance with the current recommendations of the National Kid[employer]. [facility] [place] will update re porting as new guidelin es are published from the [facility]F-ASN Task force.
<br/ >Perfor med by:
[facility] Vincent (HD)

BUN/Creatinine 14 9-20 Ratio (test code = 3097-3) Sodium (test code = 138 mmol/L 695-912 3735-2) Potassium (test 4.2 mmol/L 3.5-5.2 code = 2823-3) Chloride (test code 98 mmol/L 96-106 = 2075-0) Carbon Dioxide, 28 mmol/L 20-29 Total (test code = 2027-9) Calcium (test code 8.4 mg/dL 8.7-10.2 L = 93543-3) Protein, Total 6.1 g/dL 6.0-8.5 (test code = 2885-2) Albumin (test code 3.0 g/dL 4.0-5.0 L = 1751-7) Globulin, Total 3.1 g/dL 1.5-4.5 (test code = 55455-2) A/G Ratio (test 1.0 1.2-2.2 L code [...] >59 L Am (test code = mL/min/1.73 41000-8) eGFR If Africn Am 48 >59 L [facility] currently (test code = mL/min/1.73 [place] 93542-4) compliance with the current recommendations of the [employer] Kid[employer]. [facility] [place] will update re porting as new guidelin es are published from the [facility]F-ASN Task force.
<br/ >Perfor med by:
[facility] Kaur (HD)

BUN/Creatinine 14 9-20 Ratio (test code = 3097-3) Sodium (test code = 138 mmol/L 807-111 9066-2) Potassium (test 4.2 mmol/L 3.5-5.2 code = 2823-3) Chloride (test code 98 mmol/L 96-106 = 2075-0) Carbon Dioxide, 28 mmol/L 20-29 Total (test code = 2027-) Calcium (test code 8.4 mg/dL 8.7-10.2 L = 40988-0) Protein, Total 6.1 g/dL 6.0-8.5 (test code = 2885-2) Albumin (test code 3.0 g/dL 4.0-5.0 L = 1751-7) Globulin, Total 3.1 g/dL 1.5-4.5 (test code = 25579-0) A/G Ratio (test 1.0 1.2-2.2 L code [...] >59 L Am (test code = mL/min/1.73 75343-1) eGFR If Africn Am 48 >59 L [facility] currently (test code = mL/min/1.73 [place] 02109-7) compliance with the current recommendations of the National Kid[employer] Foundation. [facility] [place] will update re porting as new guidelin es are published from the NKF-ASN Task force.
<br/ >Perfor med by:
[facility] Kaur (HD)

BUN/Creatinine 14 9-20 Ratio (test code = 3097-3) Sodium (test code = 138 mmol/L 168-998 8423-2) Potassium (test 4.2 mmol/L 3.5-5.2 code = 2823-3) Chloride (test code 98 mmol/L 96-106 = 2075-0) Carbon Dioxide, 28 mmol/L 20-29 Total (test code = 8-9) Calcium (test code 8.4 mg/dL 8.7-10.2 L = 13684-8) Protein, Total 6.1 g/dL 6.0-8.5 (test code = 2885-2) Albumin (test code 3.0 g/dL 4.0-5.0 L = 1751-7) Globulin, Total 3.1 g/dL 1.5-4.5 (test code = 66830-3) A/G Ratio (test 1.0 1.2-2.2 L code [...] >59 L Am (test code = mL/min/1.73 78042-3) eGFR If Africn Am 48 >59 L [facility] currently (test code = mL/min/1.73 [place] 55312-2) compliance with the current recommendations of the National Kid[employer] Foundation. [facility] [place] will update re porting as new guidelin es are published from the [facility]F-ASN Task force.
<br/ >Perfor med by:
[facility] (HD)

BUN/Creatinine 14 9-20 Ratio (test code = 3097-3) Sodium (test code = 138 mmol/L 246-832 3439-2) Potassium (test 4.2 mmol/L 3.5-5.2 code = 2823-3) Chloride (test code 98 mmol/L 96-106 = 2075-0) Carbon Dioxide, 28 mmol/L 20-29 Total (test code = 2027-) Calcium (test code 8.4 mg/dL 8.7-10.2 L = 66388-8) Protein, Total 6.1 g/dL 6.0-8.5 (test code = 2885-2) Albumin (test code 3.0 g/dL 4.0-5.0 L = 1751-7) Globulin, Total 3.1 g/dL 1.5-4.5 (test code = 89050-5) A/G Ratio (test 1.0 1.2-2.2 L code = 1759-0) Bilirubin, Total 0.6 mg/dL 0.0-1.2 (test code = 1975-2) Alkaline 130 IU/L 48-121 H Phosphatase (test Pl ease note code = 6007-6) reference int erval change
<b r/>Perf ormed [...] >59 L Am (test code = mL/min/1.73 74701-8) eGFR If Africn Am 48 >59 L [facility] currently (test code = mL/min/1.73 [place] 84763-9) compliance with the current recommendations of the National Kid[employer]. [facility] [place] will update re porting as new guidelin es are published from the NKF-ASN Task force.
<br/ >Perfor med by:
Lab [facility] Vincent (HD)

BUN/Creatinine 14 9-20 Ratio (test code = 3097-3) Sodium (test code = 138 mmol/L 423-482 8066-2) Potassium (test 4.2 mmol/L 3.5-5.2 code = 2823-3) Chloride (test code 98 mmol/L 96-106 = 2075-0) Carbon Dioxide, 28 mmol/L 20-29 Total (test code = 2027-9) Calcium (test code 8.4 mg/dL 8.7-10.2 L = 88600-3) Protein, Total 6.1 g/dL 6.0-8.5 (test code = 2885-2) Albumin (test code 3.0 g/dL 4.0-5.0 L = 1751-7) Globulin, Total 3.1 g/dL 1.5-4.5 (test code = 46760-8) A/G Ratio (test 1.0 1.2-2.2 L code [...] >59 L Am (test code = mL/min/1.73 66094-1) eGFR If Africn Am 48 >59 L [facility] currently (test code = mL/min/1.73 [place] 71214-9) compliance with the current recommendations of the [employer] Kid[employer] Foundation. [facility] [place] will update re porting as new guidelin es are published from the NKF-ASN Task force.
<br/ >Perfor med by:
[facility] Kaur (HD)

BUN/Creatinine 14 9-20 Ratio (test code = 3097-3) Sodium (test code = 138 mmol/L 529-174 7811-2) Potassium (test 4.2 mmol/L 3.5-5.2 code = 2823-3) Chloride (test code 98 mmol/L 96-106 = 2075-0) Carbon Dioxide, 28 mmol/L 20-29 Total (test code = 2027-) Calcium (test code 8.4 mg/dL 8.7-10.2 L = 24454-9) Protein, Total 6.1 g/dL 6.0-8.5 (test code = 2885-2) Albumin (test code 3.0 g/dL 4.0-5.0 L = 1751-7) Globulin, Total 3.1 g/dL 1.5-4.5 (test code = 08221-4) A/G Ratio (test 1.0 1.2-2.2 L code [...] >59 L Am (test code = mL/min/1.73 13235-1) eGFR If Africn Am 48 >59 L [facility] currently (test code = mL/min/1.73 [place] 02868-1) compliance with the current recommendations of the [employer] Kid[employer]. [facility] [place] will update re porting as new guidelin es are published from the [facility]F-ASN Task force.
<br/ >Perfor med by:
Lab [facility] Vincent (HD)

BUN/Creatinine 14 9-20 Ratio (test code = 3097-3) Sodium (test code = 138 mmol/L 787-664 7601-2) Potassium (test 4.2 mmol/L 3.5-5.2 code = 2823-3) Chloride (test code 98 mmol/L 96-106 = 2075-0) Carbon Dioxide, 28 mmol/L 20-29 Total (test code = 2027-9) Calcium (test code 8.4 mg/dL 8.7-10.2 L = 01289-2) Protein, Total 6.1 g/dL 6.0-8.5 (test code = 2885-2) Albumin (test code 3.0 g/dL 4.0-5.0 L = 1751-7) Globulin, Total 3.1 g/dL 1.5-4.5 (test code = 84641-7) A/G Ratio (test 1.0 1.2-2.2 L code [...] >59 L Am (test code = mL/min/1.73 49580-2) eGFR If Africn Am 48 >59 L [facility] currently (test code = mL/min/1[place]73 [place] [address]-5) compliance with the current recommendations of the [employer]. [facility] [place] will update re porting as new guidelin es are published from the NKF-ASN Task force.
<br/ >Perfor med by:
[facility] (HD)

BUN/Creatinine 14 9-20 Ratio (test code = 3097-3) Sodium (test code = 138 mmol/L 862-186 4246-2) Potassium (test 4.2 mmol/L 3.5-5.2 code = 2823-3) Chloride (test code 98 mmol/L 96-106 = 2075-0) Carbon Dioxide, 28 mmol/L 20-29 Total (test code = 2027-) Calcium (test code 8.4 mg/dL 8.7-10.2 L = 25557-8) Protein, Total 6.1 g/dL 6.0-8.5 (test code = 2885-2) Albumin (test code 3.0 g/dL 4.0-5.0 L = 1751-7) Globulin, Total 3.1 g/dL 1.5-4.5 (test code = 34014-7) A/G Ratio (test 1.0 1.2-2.2 L code [...] >59 L Am (test code = mL/min/1.73 79830-8) eGFR If Africn Am 48 >59 L [facility] currently (test code = mL/min/1[place]73 [place] [address]-0) compliance with the current recommendations of the [employer]. [facility] [place] will update re porting as new guidelin es are published from the NKF-ASN Task force.
<br/ >Perfor med by:
[facility] (HD)

BUN/Creatinine 14 9-20 Ratio (test code = 3097-3) Sodium (test code = 138 mmol/L 232-127 8784-2) Potassium (test 4.2 mmol/L 3.5-5.2 code = 2823-3) Chloride (test code 98 mmol/L 96-106 = 2075-0) Carbon Dioxide, 28 mmol/L 20-29 Total (test code = 2027-9) Calcium (test code 8.4 mg/dL 8.7-10.2 L = 49822-6) Protein, Total 6.1 g/dL 6.0-8.5 (test code = 2885-2) Albumin (test code 3.0 g/dL 4.0-5.0 L = 1751-7) Globulin, Total 3.1 g/dL 1.5-4.5 (test code = 03291-2) A/G Ratio (test 1.0 1.2-2.2 L code [...] >59 L Am (test code = mL/min/1.73 31694-0) eGFR If Africn Am 48 >59 L [facility] currently (test code = mL/min/1.73 [place] [address]-2) compliance with the current recommendations of the [employer]. [facility] [place] will update re porting as new guidelin es are published from the NKF-ASN Task force.
<br/ >Perfor med by:
[facility]aur (HD)

BUN/Creatinine 14 9-20 Ratio (test code = 3097-3) Sodium (test code = 138 mmol/L 764-826 4342-2) Potassium (test 4.2 mmol/L 3.5-5.2 code = 2823-3) Chloride (test code 98 mmol/L 96-106 = 2075-0) Carbon Dioxide, 28 mmol/L 20-29 Total (test code = 2027-) Calcium (test code 8.4 mg/dL 8.7-10.2 L = 37224-7) Protein, Total 6.1 g/dL 6.0-8.5 (test code = 2885-2) Albumin (test code 3.0 g/dL 4.0-5.0 L = 1751-7) Globulin, Total 3.1 g/dL 1.5-4.5 (test code = 89468-1) A/G Ratio (test 1.0 1.2-2.2 L code [...] = 1742-6) [facility] Description: Comp. Metabolic Panel (142020-08-16 01:19:00 Test Item Value Reference Range Interpretation Comments Glucose (test code 424 mg/dL 65-99 H = 2345-7) BUN (test code = 27 mg/dL 6-24 H 3094-0) Creatinine (test 1.88 mg/dL 0.76-1.27 H code = 2160-0) eGFR If NonAfricn 42 >59 L Am (test code = mL/min/1.73 99944-0) eGFR If Africn Am 48 >59 L [facility] currently (test code = mL/min/1.73 [place] [address]-2) compliance with the current recommendations of the [employer]. [facility] [place] will update re porting as new guidelin es are published from the NKF-ASN Task force.
<br/ >Perfor med by:
[facility] [place] [facility] ([place])

BUN/Creatinine 14 9-20 Ratio (test code = 3097-3) Sodium (test code = 138 mmol/L 658-847 9603-2) Potassium (test 4.2 mmol/L 3.5-5.2 code = 2823-3) Chloride (test code 98 mmol/L 96-106 = 2075-0) Carbon Dioxide, 28 mmol/L 20-29 Total (test code = 2027-9) Calcium (test code 8.4 mg/dL 8.7-10.2 L = 98252-8) Protein, Total 6.1 g/dL 6.0-8.5 (test code = 2885-2) Albumin (test code 3.0 g/dL 4.0-5.0 L = 1751-7) Globulin, Total 3.1 g/dL 1.5-4.5 (test code = 79633-6) A/G Ratio (test 1.0 1.2-2.2 L code [...] >59 L Am (test code = mL/min/1.73 05023-3) eGFR If Africn Am 48 >59 L [facility] currently (test code = mL/min/1[place] [address]-4) compliance with the current recommendations of the [employer]. [facility] [place] will update re porting as new guidelin es are published from the NKF-ASN Task force.
<br/ >Perfor med by:
[facility] [place] ([place])

BUN/Creatinine 14 9-20 Ratio (test code = 3097-3) Sodium (test code = 138 mmol/L 906-071 0030-2) Potassium (test 4.2 mmol/L 3.5-5.2 code = 2823-3) Chloride (test code 98 mmol/L 96-106 = 5-0) Carbon Dioxide, 28 mmol/L 20-29 Total (test code = 2027-) Calcium (test code 8.4 mg/dL 8.7-10.2 L = 99515-9) Protein, Total 6.1 g/dL 6.0-8.5 (test code = 2885-2) Albumin (test code 3.0 g/dL 4.0-5.0 L = 1751-7) Globulin, Total 3.1 g/dL 1.5-4.5 (test code = 42997-6) A/G Ratio (test 1.0 1.2-2.2 L code [...] >59 L Am (test code = mL/min/1.73 61585-3) eGFR If Africn Am 48 >59 L [facility] currently (test code = mL/min/1.73 [place] [address]-9) compliance with the current recommendations of the National Kid[employer]. [facility] [place] will update re porting as new guidelin es are published from the NKF-ASN Task force.
<br/ >Perfor med by:
[facility] [place] ([place])

BUN/Creatinine 14 9-20 Ratio (test code = 3097-3) Sodium (test code = 138 mmol/L 091-010 3081-2) Potassium (test 4.2 mmol/L 3.5-5.2 code = 2823-3) Chloride (test code 98 mmol/L 96-106 = 2075-0) Carbon Dioxide, 28 mmol/L 20-29 Total (test code = 2027-) Calcium (test code 8.4 mg/dL 8.7-10.2 L = 60288-1) Protein, Total 6.1 g/dL 6.0-8.5 (test code = 2885-2) Albumin (test code 3.0 g/dL 4.0-5.0 L = 1751-7) Globulin, Total 3.1 g/dL 1.5-4.5 (test code = 27042-7) A/G Ratio (test 1.0 1.2-2.2 L code [...] >59 L Am (test code = mL/min/1.73 84836-9) eGFR If Africn Am 48 >59 L [facility] currently (test code = mL/min/1.73 [place] [address]-1) compliance with the current recommendations of the [employer]. [facility] [place] will update re porting as new guidelin es are published from the NKF-ASN Task force.
<br/ >Perfor med by:
[facility] [place] [facility]aur ([place])

BUN/Creatinine 14 9-20 Ratio (test code = 3097-3) Sodium (test code = 138 mmol/L 895-420 2660-2) Potassium (test 4.2 mmol/L 3.5-5.2 code = 2823-3) Chloride (test code 98 mmol/L 96-106 = 2075-0) Carbon Dioxide, 28 mmol/L 20-29 Total (test code = 2027-) Calcium (test code 8.4 mg/dL 8.7-10.2 L = 11774-0) Protein, Total 6.1 g/dL 6.0-8.5 (test code = 2885-2) Albumin (test code 3.0 g/dL 4.0-5.0 L = 1751-7) Globulin, Total 3.1 g/dL 1.5-4.5 (test code = 59744-0) A/G Ratio (test 1.0 1.2-2.2 L code [...] >59 L Am (test code = mL/min/1.73 15257-9) eGFR If Africn Am 48 >59 L [facility] currently (test code = mL/min/1.73 [place] [address]-7) compliance with the current recommendations of the [employer] Kid[employer]. [facility] [place] will update re porting as new guidelin es are published from the NKF-ASN Task force.
<br/ >Perfor med by:
[facility] [place] [facility] ([place])

BUN/Creatinine 14 9-20 Ratio (test code = 3097-3) Sodium (test code = 138 mmol/L 677-177 4563-2) Potassium (test 4.2 mmol/L 3.5-5.2 code = 2823-3) Chloride (test code 98 mmol/L 96-106 = 2075-0) Carbon Dioxide, 28 mmol/L 20-29 Total (test code = 2027-) Calcium (test code 8.4 mg/dL 8.7-10.2 L = 62661-4) Protein, Total 6.1 g/dL 6.0-8.5 (test code = 2885-2) Albumin (test code 3.0 g/dL 4.0-5.0 L = 1751-7) Globulin, Total 3.1 g/dL 1.5-4.5 (test code = 33488-3) A/G Ratio (test 1.0 1.2-2.2 L code [...] >59 L Am (test code = mL/min/1.73 78466-0) eGFR If Africn Am 48 >59 L [facility] currently (test code = mL/min/1.73 [place] [address]-5) compliance with the current recommendations of the [employer]. [facility] [place] will update re porting as new guidelin es are published from the NKF-ASN Task force.
<br/ >Perfor med by:
[facility] [place] ([place])

BUN/Creatinine 14 9-20 Ratio (test code = 3097-3) Sodium (test code = 138 mmol/L 207-346 4098-2) Potassium (test 4.2 mmol/L 3.5-5.2 code = 2823-3) Chloride (test code 98 mmol/L 96-106 = 2075-0) Carbon Dioxide, 28 mmol/L 20-29 Total (test code = 2027-) Calcium (test code 8.4 mg/dL 8.7-10.2 L = 03637-7) Protein, Total 6.1 g/dL 6.0-8.5 (test code = 2885-2) Albumin (test code 3.0 g/dL 4.0-5.0 L = 1751-7) Globulin, Total 3.1 g/dL 1.5-4.5 (test code = 07245-1) A/G Ratio (test 1.0 1.2-2.2 L code = 1759-0) Bilirubin, Total 0.6 mg/dL 0.0-1.2 (test code = 1975-2) Alkaline 130 IU/L 48-121 H Phosphatase (test Pl ease note code = 6768-6) reference int erval change
<b r/>Perf ormed by:
[facility] [place] ([place])

AST (SGOT) (test 15 IU/L 0-40 [...] diabetes: <7.0

P erforme d by:
[facility] ([place])

[facility] Description: Hemoglobin A1c/Hemoglobin.total in Blood 2020-08-16 00:35:00 Test Item Value Reference Range Interpretation Comments Hemoglobin A1c (test code 11.6 % 4.8-5.6 H = 4548-4) . Prediabetes: 5. 7 - 6.4 Diabete s: >6.4 Glycemi c control for niall lts with diabetes: <7.0

P erforme d by:
[facility] ([place])

[facility] Description: Hemoglobin A1c/Hemoglobin.total in Blood 2020-08-16 00:35:00 Test Item Value Reference Range Interpretation Comments Hemoglobin A1c (test code 11.6 % 4.8-5.6 H = 4548-4) . Prediabetes: 5. 7 - 6.4 Diabete s: >6.4 Glycemi c control for niall lts with diabetes: <7.0

P erforme d by:
[employer] [facility] ()

[facility] Description: Hemoglobin A1c/Hemoglobin.total in Blood 2020-08-16 00:35:00 Test Item Value Reference Range Interpretation Comments Hemoglobin A1c (test code 11.6 % 4.8-5.6 H = 4548-4) . Prediabetes: 5. 7 - 6.4 Diabete s: >6.4 Glycemi c control for niall lts with diabetes: <7.0

P erforme d by:
[employer] [facility] ([place])

[facility] Description: Hemoglobin A1c/Hemoglobin.total in Blood 2020-08-16 00:35:00 Test Item Value Reference Range Interpretation Comments Hemoglobin A1c (test code 11.6 % 4.8-5.6 H = 4548-4) . Prediabetes: 5. 7 - 6.4 Diabete s: >6.4 Glycemi c control for niall lts with diabetes: <7.0

P erforme d by:
[employer] [facility] ([place])

[facility] Description: Hemoglobin A1c/Hemoglobin.total in Blood 2020-08-16 00:35:00 Test Item Value Reference Range Interpretation Comments Hemoglobin A1c (test code 11.6 % 4.8-5.6 H = 4548-4) . Prediabetes: 5. 7 - 6.4 Diabete s: >6.4 Glycemi c control for niall lts with diabetes: <7.0

P erforme d by:
[facility] [place] ([place])

[facility] Description: Hemoglobin A1c/Hemoglobin.total in Blood 2020-08-16 00:35:00 Test Item Value Reference Range Interpretation Comments Hemoglobin A1c (test code 11.6 % 4.8-5.6 H = 4548-4) . Prediabetes: 5. 7 - 6.4 Diabete s: >6.4 Glycemi c control for niall lts with diabetes: <7.0

P erforme d by:
[employer] [place] ()

[facility] Description: Hemoglobin A1c/Hemoglobin.total in Blood 2020-08-16 00:35:00 Test Item Value Reference Range Interpretation Comments Hemoglobin A1c (test code 11.6 % 4.8-5.6 H = 4548-4) . Prediabetes: 5. 7 - 6.4 Diabete s: >6.4 Glycemi c control for niall lts with diabetes: <7.0

P erforme d by:
[employer] [facility] ([place])

[facility] Description: Hemoglobin A1c/Hemoglobin.total in Blood 2020-08-16 00:35:00 Test Item Value Reference Range Interpretation Comments Hemoglobin A1c (test code 11.6 % 4.8-5.6 H = 4548-4) . Prediabetes: 5. 7 - 6.4 Diabete s: >6.4 Glycemi c control for niall lts with diabetes: <7.0

P erforme d by:
[employer] [facility] ([place])

[facility] Description: Hemoglobin A1c/Hemoglobin.total in Blood 2020-08-16 00:35:00 Test Item Value Reference Range Interpretation Comments Hemoglobin A1c (test code 11.6 % 4.8-5.6 H = 4548-4) . Prediabetes: 5. 7 - 6.4 Diabete s: >6.4 Glycemi c control for niall lts with diabetes: <7.0

P erforme d by:
[facility] ([place])

[facility] Description: Hemoglobin A1c/Hemoglobin.total in Blood 2020-08-16 00:35:00 Test Item Value Reference Range Interpretation Comments Hemoglobin A1c (test code 11.6 % 4.8-5.6 H = 4548-4) . Prediabetes: 5. 7 - 6.4 Diabete s: >6.4 Glycemi c control for niall lts with diabetes: <7.0

P erforme d by:
[employer] [facility] ([place])

[facility] Description: Hemoglobin A1c/Hemoglobin.total in Blood 2020-08-16 00:35:00 Test Item Value Reference Range Interpretation Comments Hemoglobin A1c (test code 11.6 % 4.8-5.6 H = 4548-4) . Prediabetes: 5. 7 - 6.4 Diabete s: >6.4 Glycemi c control for niall lts with diabetes: <7.0

P erforme d by:
[employer] [facility] ([place])

[facility] Description: Hemoglobin A1c/Hemoglobin.total in Blood 2020-08-16 00:35:00 Test Item Value Reference Range Interpretation Comments Hemoglobin A1c (test code 11.6 % 4.8-5.6 H = 4548-4) . Prediabetes: 5. 7 - 6.4 Diabete s: >6.4 Glycemi c control for niall lts with diabetes: <7.0

P erforme d by:
[employer] [facility] ([place])

[facility] Description: Hemoglobin A1c/Hemoglobin.total in Blood 2020-08-16 00:35:00 Test Item Value Reference Range Interpretation Comments Hemoglobin A1c (test code 11.6 % 4.8-5.6 H = 4548-4) . Prediabetes: 5. 7 - 6.4 Diabete s: >6.4 Glycemi c control for niall lts with diabetes: <7.0

P erforme d by:
[employer] [facility] ()

[facility] Description: Hemoglobin A1c/Hemoglobin.total in Blood 2020-08-16 00:35:00 Test Item Value Reference Range Interpretation Comments Hemoglobin A1c (test code 11.6 % 4.8-5.6 H = 4548-4) . Prediabetes: 5. 7 - 6.4 Diabete s: >6.4 Glycemi c control for niall lts with diabetes: <7.0

P erforme d by:
[employer] [facility] ()

[facility] Description: Hemoglobin A1c/Hemoglobin.total in Blood 2020-08-16 00:35:00 Test Item Value Reference Range Interpretation Comments Hemoglobin A1c (test code 11.6 % 4.8-5.6 H = 4548-4) . Prediabetes: 5. 7 - 6.4 Diabete s: >6.4 Glycemi c control for niall lts with diabetes: <7.0

P erforme d by:
[employer] [facility] ()

[facility] Description: Hemoglobin A1c/Hemoglobin.total in Blood 2020-08-16 00:35:00 Test Item Value Reference Range Interpretation Comments Hemoglobin A1c (test code 11.6 % 4.8-5.6 H = 4548-4) . Prediabetes: 5. 7 - 6.4 Diabete s: >6.4 Glycemi c control for niall lts with diabetes: <7.0

P erforme d by:
[employer] [facility] ([place])

[facility] Description: Hemoglobin A1c/Hemoglobin.total in Blood 2020-08-16 00:35:00 Test Item Value Reference Range Interpretation Comments Hemoglobin A1c (test code 11.6 % 4.8-5.6 H = 4548-4) . Prediabetes: 5. 7 - 6.4 Diabete s: >6.4 Glycemi c control for niall lts with diabetes: <7.0

P erforme d by:
[facility] ([place])

[facility] Description: Hemoglobin A1c/Hemoglobin.total in Blood 2020-08-16 00:35:00 Test Item Value Reference Range Interpretation Comments Hemoglobin A1c (test code 11.6 % 4.8-5.6 H = 4548-4) . Prediabetes: 5. 7 - 6.4 Diabete s: >6.4 Glycemi c control for niall lts with diabetes: <7.0

P erforme d by:
[employer] [facility] ()

[facility] Description: Hemoglobin A1c/Hemoglobin.total in Blood 2020-08-16 00:35:00 Test Item Value Reference Range Interpretation Comments Hemoglobin A1c (test code 11.6 % 4.8-5.6 H = 4548-4) . Prediabetes: 5. 7 - 6.4 Diabete s: >6.4 Glycemi c control for niall lts with diabetes: <7.0

P erforme d by:
[employer] [facility] ()

[facility] Description: Hemoglobin A1c/Hemoglobin.total in Blood 2020-08-16 00:35:00 Test Item Value Reference Range Interpretation Comments Hemoglobin A1c (test code 11.6 % 4.8-5.6 H = 4548-4) . Prediabetes: 5. 7 - 6.4 Diabete s: >6.4 Glycemi c control for niall lts with diabetes: <7.0

P erforme d by:
[facility] ([place])

[facility] Description: Hemoglobin A1c/Hemoglobin.total in Blood 2020-08-16 00:35:00 Test Item Value Reference Range Interpretation Comments Hemoglobin A1c (test code 11.6 % 4.8-5.6 H = 4548-4) . Prediabetes: 5. 7 - 6.4 Diabete s: >6.4 Glycemi c control for niall lts with diabetes: <7.0

P erforme d by:
[facility] [place] ([place])

[facility] and screen, [id number] 19:24:00 Test Item Value Reference Range Interpretation Comments ABO/RH AUTOMATED (BEAKER) (test A POSITIVE ECHO code = 2260) Ab Scrn (test code = 890-4) [facility] [id number] 19:24:00 Test Item Value Reference Range Interpretation Comments ABO/RH AUTOMATED (BEAKER) (test A POSITIVE ECHO code = 2260) Ab Scrn (test code = 890-4) [facility], [id number] 19:24:00 Test Item Value Reference Range Interpretation Comments ABO/RH AUTOMATED (BEAKER) (test A POSITIVE ECHO code = 2260) Ab Scrn (test code = 890-4) [facility], [id number] 19:24:00 Test Item Value Reference Range Interpretation Comments ABO/RH AUTOMATED (BEAKER) (test A POSITIVE ECHO code = 2260) Ab Scrn (test code = 890-4) [facility], [id number] 19:24:00 Test Item Value Reference Range Interpretation Comments ABO/RH AUTOMATED (BEAKER) (test A POSITIVE ECHO code = 2260) Ab Scrn (test code = 890-4) [facility], [id number] 19:24:00 Test Item Value Reference Range Interpretation Comments ABO/RH AUTOMATED (BEAKER) (test A POSITIVE ECHO code = 2260) Ab Scrn (test code = 890-4) [facility], [id number] 19:24:00 Test Item Value Reference Range Interpretation Comments ABO/RH AUTOMATED (BEAKER) (test A POSITIVE ECHO code = 2260) Ab Scrn (test code = 890-4) [facility] [id number] 19:12:00 Test Item Value Reference Range Interpretation Comments Protein, Total (test 6.9 See_Comment [Autom ated code = 2885-2) message] The system which generated this result transmit josé luis reference range : 6.0 - 8.5 gm/dL . The reference range was not u sed to interpret th is result as normal/abnormal . Albumin (test code = 3.3 g/dL 3.5-5 L 60669-1) Alkaline Phosphatase 97 U/L 30-115 (test code = 6768-6) Total Bilirubin (test 0.9 mg/dL 0.1-1.2 code = 1975-2) Sodium (test code = 137 meq/L 315-295 5732-2) Potassium (test code 4.5 meq/L 3.6-5.5 = 2823-3) Chloride (test code = 100 meq/L 98-106 2075-0) CO2 (test code = 26 meq/L 20-29 2028-9) BUN (test code = 51 mg/dL 10-26 H 3094-0) Creatinine (test code 1.87 mg/dL 0.5-1.2 H = 2160-0) Glucose (test code = 267 mg/dL 70-110 H 2345-7) Calcium (test code = 9.1 mg/dL 8.5-10.5 25464-1) AST (test code = 18 U/L 5-40 1920-8) ALT (test code = 23 U/L 5-50 1742-6) EGFR (test code = 39 mL/min/1.73 [place] [address]-7) NOT ACCURATE CREATININE CLEARANCE IN PREDICTING GLOMERULAR FILTRATION RATE . ESTIMATED GFR I S NOT APPLICABLE FOR DIALYSIS PATIEN TS. ISSA (test code = ISSA) Flat Screen Worker ID - [id number] r ID - [id number] r ID - [id number] r ID - [id number] r ID - [id number] r ID - [id number] r ID - [id number] r ID - [id number] r ID - [id number] r ID - [id number] r ID - [id number] r ID - [id number] r ID - [id number] r ID - [id number] r ID - [id number] r ID - [id number] r ID - [id number] r ID - [id number] r ID - [id number] Lab Interpretation Abnormal (test code = 81602-6) [facility] [id number] 19:12:00 Test Item Value Reference Range Interpretation Comments Protein, Total (test 6.9 See_Comment [Autom ated code = 2885-2) message] The system which generated this result transmit josé luis reference range : 6.0 - 8.5 gm/dL . The reference range was not u sed to interpret th is result as normal/abnormal . Albumin (test code = 3.3 g/dL 3.5-5 L 48791-4) Alkaline Phosphatase 97 U/L 30-115 (test code = 6768-6) Total Bilirubin (test 0.9 mg/dL 0.1-1.2 code = 1974-2) Sodium (test code = 137 meq/L 461-466 6422-2) Potassium (test code 4.5 meq/L 3.6-5.5 = 2823-3) Chloride (test code = 100 meq/L 98-106 2074-0) CO2 (test code = 26 meq/L 20-29 2027-9) BUN (test code = 51 mg/dL 10-26 H 3094-0) Creatinine (test code 1.87 mg/dL 0.5-1.2 H = 2160-0) Glucose (test code = 267 mg/dL 70-110 H 2345-7) Calcium (test code = 9.1 mg/dL 8.5-10.5 78705-6) AST (test code = 18 U/L 5-40 1920-8) ALT (test code = 23 U/L 5-50 1742-6) EGFR (test code = 39 mL/min/1.73 [place] [address]-3) NOT ACCURATE CREATININE CLEARANCE IN PREDICTING GLOMERULAR FILTRATION RATE . ESTIMATED GFR I S NOT APPLICABLE FOR DIALYSIS PATIEN ISSA (test code = ISSA) Flat Screen Worker ID - [id number] r ID - [id number] r ID - [id number] r ID - [id number] r ID - [id number] r ID - [id number] r ID - [id number] r ID - [id number] r ID - [id number] r ID - [id number] r ID - [id number] r ID - [id number] r ID - [id number] r ID - [id number] r ID - [id number] r ID - [id number] r ID - [id number] r ID - [id number] r ID - [id number] Lab Interpretation Abnormal (test code = 09275-7) [facility] [id number] 19:12:00 Test Item Value Reference Range Interpretation Comments Protein, Total (test 6.9 See_Comment [Autom ated code = 2885-2) message] The system which generated this result transmit josé luis reference range : 6.0 - 8.5 gm/dL . The reference range was not u sed to interpret th is result as normal/abnormal . Albumin (test code = 3.3 g/dL 3.5-5 L 23761-2) Alkaline Phosphatase 97 U/L 30-115 (test code = 6768-6) Total Bilirubin (test 0.9 mg/dL 0.1-1.2 code = 1975-2) Sodium (test code = 137 meq/L 592-688 8886-2) Potassium (test code 4.5 meq/L 3.6-5.5 = 2823-3) Chloride (test code = 100 meq/L 98-106 2074-0) CO2 (test code = 26 meq/L 20-29 2027-) BUN (test code = 51 mg/dL 10-26 H 4-0) Creatinine (test code 1.87 mg/dL 0.5-1.2 H = 2160-0) Glucose (test code = 267 mg/dL 70-110 H 2345-7) Calcium (test code = 9.1 mg/dL 8.5-10.5 10731-4) AST (test code = 18 U/L 5-40 1920-8) ALT (test code = 23 U/L 5-50 1742-6) EGFR (test code = 39 mL/min/1.73 [place] [address]-0) NOT ACCURATE CREATININE CLEARANCE IN PREDICTING GLOMERULAR FILTRATION RATE . ESTIMATED GFR I S NOT APPLICABLE FOR DIALYSIS PATIEN TS. ISSA (test code = ISSA) Flat Screen Worker ID - [id number] r ID - [id number] r ID - [id number] r ID - [id number] r ID - [id number] r ID - [id number] r ID - [id number] r ID - [id number] r ID - [id number] r ID - [id number] r ID - [id number] r ID - [id number] r ID - [id number] r ID - [id number] r ID - [id number] r ID - [id number] r ID - [id number] r ID - [id number] r ID - [id number] Lab Interpretation Abnormal (test code = 96247-8) [facility] [id number] 19:12:00 Test Item Value Reference Range Interpretation Comments Protein, Total (test 6.9 See_Comment [Autom ated code = 2885-2) message] The system which generated this result transmit josé luis reference range : 6.0 - 8.5 gm/dL . The reference range was not u sed to interpret th is result as normal/abnormal . Albumin (test code = 3.3 g/dL 3.5-5 L 20849-2) Alkaline Phosphatase 97 U/L 30-115 (test code = 6768-6) Total Bilirubin (test 0.9 mg/dL 0.1-1.2 code = 1975-2) Sodium (test code = 137 meq/L 332-422 3684-2) Potassium (test code 4.5 meq/L 3.6-5.5 = 2823-3) Chloride (test code = 100 meq/L 98-106 5-0) CO2 (test code = 26 meq/L 20-29 2027-9) BUN (test code = 51 mg/dL 10-26 H 3094-0) Creatinine (test code 1.87 mg/dL 0.5-1.2 H = 2160-0) Glucose (test code = 267 mg/dL 70-110 H 2345-7) Calcium (test code = 9.1 mg/dL 8.5-10.5 64474-7) AST (test code = 18 U/L 5-40 1920-8) ALT (test code = 23 U/L 5-50 1742-6) EGFR (test code = 39 mL/min/1.73 [place] [address]-2) NOT ACCURATE CREATININE CLEARANCE IN PREDICTING GLOMERULAR FILTRATION RATE . ESTIMATED GFR I S NOT APPLICABLE FOR DIALYSIS PATIEN TS. ISSA (test code = ISSA) Flat Screen Worker ID - [id number] r ID - [id number] r ID - [id number] r ID - [id number] r ID - [id number] r ID - [id number] r ID - [id number] r ID - [id number] r ID - [id number] r ID - [id number] r ID - [id number] r ID - [id number] r ID - [id number] r ID - [id number] r ID - [id number] r ID - [id number] r ID - [id number] r ID - [id number] r ID - [id number] Lab Interpretation Abnormal (test code = 94702-0) [id number] 19:12:00 Test Item Value Reference Range Interpretation Comments Protein, Total (test 6.9 See_Comment [Autom ated code = 2885-2) message] The system which generated this result transmit josé luis reference range : 6.0 - 8.5 gm/dL . The reference range was not u sed to interpret th is result as normal/abnormal . Albumin (test code = 3.3 g/dL 3.5-5.0 L 28564-7) Alkaline Phosphatase 97 U/L 30-115 (test code = 6768-6) Total Bilirubin (test 0.9 mg/dL 0.1-1.2 code = 1974-2) Sodium (test code = 137 meq/L 159-860 9284-2) Potassium (test code 4.5 meq/L 3.6-5.5 = 2823-3) Chloride (test code = 100 meq/L 98-106 2074-0) CO2 (test code = 26 meq/L 20-29 2027-9) BUN (test code = 51 mg/dL 10-26 H 3094-0) Creatinine (test code 1.87 mg/dL 0.50-1.20 H = 2160-0) Glucose (test code = 267 mg/dL 70-110 H 2345-7) Calcium (test code = 9.1 mg/dL 8.5-10.5 15644-7) AST (test code = 18 U/L 5-40 192-8) ALT (test code = 23 U/L 5-50 1742-6) EGFR (test code = 39 mL/min/1.73 [place] [address]-1) NOT ACCURATE CREATININE CLEARANCE IN PREDICTING GLOMERULAR FILTRATION RATE . ESTIMATED GFR I S NOT APPLICABLE FOR DIALYSIS PATIEN TS. ISSA (test code = ISSA) Flat Screen Worker ID - [id number] r ID - [id number] r ID - [id number] r ID - [id number] r ID - [id number] r ID - [id number] r ID - [id number] r ID - [id number] r ID - [id number] r ID - [id number] r ID - [id number] r ID - [id number] r ID - [id number] r ID - [id number] r ID - [id number] r ID - [id number] r ID - [id number] r ID - [id number] r ID - [id number] Lab Interpretation Abnormal (test code = 02547-0) [facility] [id number] 19:12:00 Test Item Value Reference Range Interpretation Comments Protein, Total (test 6.9 See_Comment [Autom ated code = 2885-2) message] The system which generated this result transmit josé luis reference range : 6.0 - 8.5 gm/dL . The reference range was not u sed to interpret th is result as normal/abnormal . Albumin (test code = 3.3 g/dL 3.5-5.0 L 54955-8) Alkaline Phosphatase 97 U/L 30-115 (test code = 6768-6) Total Bilirubin (test 0.9 mg/dL 0.1-1.2 code = 1975-2) Sodium (test code = 137 meq/L 116-140 2303-2) Potassium (test code 4.5 meq/L 3.6-5.5 = 2823-3) Chloride (test code = 100 meq/L 98-106 2075-0) CO2 (test code = 26 meq/L 20-29 2028-9) BUN (test code = 51 mg/dL 10-26 H 3094-0) Creatinine (test code 1.87 mg/dL 0.50-1.20 H = 2160-0) Glucose (test code = 267 mg/dL 70-110 H 2345-7) Calcium (test code = 9.1 mg/dL 8.5-10.5 90680-1) AST (test code = 18 U/L 5-40 1920-8) ALT (test code = 23 U/L 5-50 1742-6) EGFR (test code = 39 mL/min/1.73 [place] [address]-7) NOT ACCURATE CREATININE CLEARANCE IN PREDICTING GLOMERULAR FILTRATION RATE . ESTIMATED GFR I S NOT APPLICABLE FOR DIALYSIS PATIEN TS. ISSA (test code = ISSA) Flat Screen Worker ID - [id number] r ID - [id number] r ID - [id number] r ID - [id number] r ID - [id number] r ID - [id number] r ID - [id number] r ID - [id number] r ID - [id number] r ID - [id number] r ID - [id number] r ID - [id number] r ID - [id number] r ID - [id number] r ID - [id number] r ID - [id number] r ID - [id number] r ID - [id number] r ID - [id number] Lab Interpretation Abnormal (test code = 55585-2) [facility] [id number] 19:12:00 Test Item Value Reference Range Interpretation Comments Protein, Total (test 6.9 See_Comment [Autom ated code = 2885-2) message] The system which generated this result transmit josé luis reference range : 6.0 - 8.5 gm/dL . The reference range was not u sed to interpret th is result as normal/abnormal . Albumin (test code = 3.3 g/dL 3.5-5.0 L 65341-9) Alkaline Phosphatase 97 U/L 30-115 (test code = 6768-6) Total Bilirubin (test 0.9 mg/dL 0.1-1.2 code = 1975-2) Sodium (test code = 137 meq/L 808-017 8937-2) Potassium (test code 4.5 meq/L 3.6-5.5 = 2823-3) Chloride (test code = 100 meq/L 98-106 2075-0) CO2 (test code = 26 meq/L 20-29 8-9) BUN (test code = 51 mg/dL 10-26 H 3094-0) Creatinine (test code 1.87 mg/dL 0.50-1.20 H = 2160-0) Glucose (test code = 267 mg/dL 70-110 H 2345-7) Calcium (test code = 9.1 mg/dL 8.5-10.5 65524-6) AST (test code = 18 U/L 5-40 1920-8) ALT (test code = 23 U/L 5-50 1742-6) EGFR (test code = 39 mL/min/1.73 [place] [address]-5) NOT ACCURATE CREATININE CLEARANCE IN PREDICTING GLOMERULAR FILTRATION RATE . ESTIMATED GFR I S NOT APPLICABLE FOR DIALYSIS PATIEN TS. ISSA (test code = ISSA) Flat Screen Worker ID - [id number] r ID - [id number] r ID - [id number] r ID - [id number] r ID - [id number] r ID - [id number] r ID - [id number] r ID - [id number] r ID - [id number] r ID - [id number] r ID - [id number] r ID - [id number] r ID - [id number] r ID - [id number] r ID - [id number] r ID - [id number] r ID - [id number] r ID - [id number] r ID - [id number] Lab Interpretation Abnormal (test code = 59720-4) [facility] [id number] 19:12:00 Test Item Value Reference Range Interpretation [...] S NOT APPLICABLE FOR DIALYSIS PATIEN TS. Flat Screen Worker ID - [id number] ID - [id number] ID - [id number] ID - [id number] ID - [id number] ID - [id number] ID - [id number] ID - [id number] ID - [id number] ID - [id number] ID - [id number] ID - [id number] ID - [id number] ID - [id number] ID - [id number] ID - [id number] ID - [id number] ID - [id number] ID - [id number] acid, [id number] 19:05:00 Test Item Value Reference Range Interpretation Comments Lactate, Venous (test code 1.18 mmol/L 0.5-2 = 2872) ISSA (test code = ISSA) Flat Screen Worker ID - [id number] ID - [id number] ID - [id number] ID - [id number] Lab Interpretation (test Normal code = 03724-6) [facility], [id number] 19:05:00 Test Item Value Reference Range Interpretation Comments Lactate, Venous (test code 1.18 mmol/L 0.5-2 = 2872) ISSA (test code = ISSA) Flat Screen Worker ID - [id number] ID - [id number] ID - [id number] ID - [id number] Lab Interpretation (test Normal code = 71395-8) [facility], [id number] 19:05:00 Test Item Value Reference Range Interpretation Comments Lactate, Venous (test code 1.18 mmol/L 0.5-2 = 2872) ISSA (test code = ISSA) Flat Screen Worker ID - [id number] ID - [id number] ID - [id number] ID - [id number] Lab Interpretation (test Normal code = 88174-1) [facility] [id number] 19:05:00 Test Item Value Reference Range Interpretation Comments Lactate, Venous (test code 1.18 mmol/L 0.5-2 = 2872) ISSA (test code = ISSA) Flat Screen Worker ID - [id number] ID - [id number] ID - [id number] ID - [id number] Lab Interpretation (test Normal code = 39904-5) [facility], [id number] 19:05:00 Test Item Value Reference Range Interpretation Comments Lactate, Venous (test code 1.18 mmol/L 0.50-2.00 = 2872) ISSA (test code = ISSA) Flat Screen Worker ID - [id number] ID - [id number] ID - [id number] ID - [id number] Lab Interpretation (test Normal code = 43552-9) [facility] acid, [id number] 19:05:00 Test Item Value Reference Range Interpretation Comments Lactate, Venous (test code 1.18 mmol/L 0.50-2.00 = 2872) ISSA (test code = ISSA) Flat Screen Worker ID - [id number] ID - [id number] ID - [id number] ID - [id number] Lab Interpretation (test Normal code = 37431-8) [facility] acid, [id number] 19:05:00 Test Item Value Reference Range Interpretation Comments Lactate, Venous (test code 1.18 mmol/L 0.50-2.00 = 2872) ISSA (test code = ISSA) Flat Screen Worker ID - [id number] ID - [id number] ID - [id number] ID - [id number] Lab Interpretation (test Normal code = 78864-8) [facility], [id number] 19:05:00 Test Item Value Reference Range Interpretation Comments LACTATE BLOOD VENOUS (2) (BEAKER) 1.18 mmol/L 0.50-<2.00 (test code = 2872) Flat Screen Worker ID - [id number] ID - [id number] ID - [id number] ID - [id number] 19:02:00 Test Item Value Reference Interpretation Comments [...] valves. Lab Interpretation Abnormal (test code = 14723-4) [facility][id number] 19:02:00 Test Item Value Reference Interpretation Comments [...] valves. Lab Interpretation Abnormal (test code = 73425-6) [facility]/[id number] 19:02:00 Test Item Value Reference Interpretation Comments [...] valves. Lab Interpretation Abnormal (test code = 30567-2) [facility]/[id number] 19:02:00 Test Item Value Reference Interpretation Comments [...] valves. Lab Interpretation Abnormal (test code = 75444-7) [facility]/[id number] 19:02:00 Test Item Value Reference Interpretation Comments [...] valves. Lab Interpretation Abnormal (test code = 77077-9) [facility]/[id number] 19:02:00 Test Item Value Reference Interpretation Comments [...] valves. Lab Interpretation Abnormal (test code = 16724-6) [facility]/[id number] 19:02:00 Test Item Value Reference Interpretation Comments [...] valves. Lab Interpretation Abnormal (test code = 43214-2) [facility] HospitalPROTHROMBIN TIME/[id number] 19:02:00 Test Item Value Reference Range Interpretation [...] code = 2801) CARDIAC CATH REPORT - [id number] 13:14:50Ordered by an unspecified provider. [facility] - [id number] 13:14:50Ordered by an unspecified provider.[facility] - SCAN 2020-04-17 13:14:50Ordered by an unspecified provider.[facility] - [id number] 13:14:50Ordered by an unspecified provider.[facility] HospitalKappa / lambda light chains, [id number] 10:53:00 Test Item Value Reference Interpretation Comments Range [place] Lt Chain,Free 129.5 mg/L 3.3-19.4 H (test code = 72933-3) Lambda Lt 99.3 mg/L 5.7-26.3 H Chain,Free (test code = 73061-3) [place]/Lambda,Free 1.3 0.26-1.65 Free shantell a/lambda (test code [...] (test code = Performing Lab ISSA) [facility] [employer] [address] [place] [address] I Wilian SCHULER, PhD, TOMY Lab Interpretation Abnormal (test code = 90393-7) [facility] lambda light chains, [id number] 10:53:00 Test Item Value Reference Interpretation Comments Range [place] Lt Chain,Free 129.5 mg/L 3.3-19.4 H (test code = 52015-2) Lambda Lt 99.3 mg/L 5.7-26.3 H Chain,Free (test code = 35882-5) [place]/Lambda,Free 1.3 0.26-1.65 Free shantell a/lambda (test code [...] (test code = Performing Lab ISSA) [facility] [employer] [place] [address] [place] [address] Awais Cedeno MD, PhD, TOMY Lab Interpretation Abnormal (test code = 43996-2) [facility] lambda light chains, [id number] 10:53:00 Test Item Value Reference Interpretation Comments Range [place] Lt Chain,Free 129.5 mg/L 3.3-19.4 H (test code = 77283-2) Lambda Lt 99.3 mg/L 5.7-26.3 H Chain,Free (test code = 22968-7) [place]/Lambda,Free 1.3 0.26-1.65 Free shantell a/lambda (test code [...] = Performing Lab ISSA) [facility] [address] [place] [address] Awais Cedeno MD, PhD, TOMY Lab Interpretation Abnormal (test code = 41817-9) [facility] lambda light chains, [id number] 10:53:00 Test Item Value Reference Interpretation Comments Range [place] Lt Chain,Free 129.5 mg/L 3.3-19.4 H (test code = 26755-2) Lambda Lt 99.3 mg/L 5.7-26.3 H Chain,Free (test code = 65548-3) [place]/Lambda,Free 1.3 0.26-1.65 Free shantell a/lambda (test code [...] (test code = Performing Lab ISSA) [facility] [employer] [place] [address] [place] [address] Awais Cedeno MD, PhD, TOMY Lab Interpretation Abnormal (test code = 75989-4) [facility] lambda light chains, [id number] 10:53:00 Test Item Value Reference Interpretation Comments Range [place] Lt Chain,Free 129.5 mg/L 3.3-19.4 H (test code = 14956-6) Lambda Lt 99.3 mg/L 5.7-26.3 H Chain,Free (test code = 13669-2) [place]/Lambda,Free 1.3 0.26-1.65 Free shantell a/lambda (test code [...] (test code = Performing Lab ISSA) [facility] [facility] [place] [address] [place] [address] Awais Cedeno MD, PhD, TOMY Lab Interpretation Abnormal (test code = 71760-3) [facility] lambda light chains, [id number] 10:53:00 Test Item Value Reference Interpretation Comments Range [place] Lt Chain,Free 129.5 mg/L 3.3-19.4 H (test code = 89241-6) Lambda Lt 99.3 mg/L 5.7-26.3 H Chain,Free (test code = 92123-2) [place]/Lambda,Free 1.3 0.26-1.65 Free shantell a/lambda (test code [...] = Performing Lab ISSA) [facility] [address] [place] [address] Awais Cedeno MD, PhD, TOMY Lab Interpretation Abnormal (test code = 96984-8) [facility] lambda light chains, [id number] 10:53:00 Test Item Value Reference Interpretation Comments Range [place] Lt Chain,Free 129.5 mg/L 3.3-19.4 H (test code = 12385-0) Lambda Lt 99.3 mg/L 5.7-26.3 H Chain,Free (test code = 04619-3) [place]/Lambda,Free 1.3 0.26-1.65 Free shantell a/lambda (test code [...] = Performing Lab ISSA) [facility] [address] [place] [address] Awais Cedeno MD, PhD, TOMY Lab Interpretation Abnormal (test code = 71890-0) [facility] HospitalPOCT-GLUCOSE [id number] 08:14:00 Test Item Value Reference Range Interpretation Comments POC-GLUCOSE METER 107 mg/dL 70-110 : Notified RN/: TESTED (BEAKER) (test code AT [facility] [address] = 1538) [facility]IN[facility] [address]: Flat Screen Worker/Techni cornelia ID = [id number] for Mady Garlandmervin BASIC METABOLIC [id number] 05:19:00 Test Item Value Reference Range Interpretation [...] S NOT APPLICABLE FOR DIALYSIS PATIEN TS. Flat Screen Worker ID - ANSBERTOGOperator ID - ANSBERTOGOperator ID - ANSBERTOGOperator ID - ANSBERTOGOperatorID - ANSBERTOGOperator ID - ANSBERTOGOperator ID - ANSBERTOGOperator ID - ANSBERTOGOperator ID - ANSBERTOGOperator ID - ANSBERTOGOperator ID - ANSBERTOGOperator ID - ANSBERTOGOperator ID - ANSBERTOG CBC W/PLT COUNT & AUTO [id number] 05:05:00 Test Item Value Reference Range Interpretation [...] PERCENT (BEAKER) (test code = 2801) POCT-GLUCOSE [id number] 22:18:00 Test Item Value Reference Range Interpretation Comments POC-GLUCOSE METER 190 mg/dL 70-110 H : TESTED A T [facility] [address] (BEAKER) (test code [address], = 1538) [place] [address]: Flat Screen Worker/Techni cornelia ID = [id number] for John Basilio POCT-GLUCOSE [id number] 15:30:00 Test Item Value Reference Range Interpretation Comments POC-GLUCOSE METER 197 mg/dL 70-110 H : TESTED A T [facility] [address] (BEAKER) (test code [address], = 15[address]) [place] [address]: Flat Screen Worker/Techni cornelia ID = [id number] for Buff ord, Jesi Protein electrophoresis, [id number] 14:18:00 Test Item Value Reference Range Interpretation Comments Albumin Fraction 2.5 See_Comment L [Automated (test code = 405) message] [employer] system which generated this result transmitted reference range : 3.5 - 5.5 gm/dL . The reference range was not used to interpr et this result as normal/abnormal . Alpha 1 Fraction 0.3 See_Comment [Automated (test code = 389) message] [employer] system which generated this result transmitted reference range : 0.2 - 0.4 gm/dL . The reference range was not used to interpr et this result as normal/abnormal . Alpha 2 Fraction 0.8 See_Comment [Automated (test code = 390) message] [employer] system which generated this result transmitted reference [...] 5.4 See_Comment L [Autom ated code = 4631) message] The system which generated this result transmitted reference range : 6.0 - 8.3 gm/dL . The reference range was not used to interpr et this result as normal/abnormal . ISSA (test code = ISSA) Flat Screen Worker ID - PIAYA L Lab Interpretation Abnormal (test code = 70621-7) [facility] electrophoresis, [id number] 14:18:00 Test Item Value Reference Range Interpretation Comments Albumin Fraction 2.5 See_Comment L [Automated (test code = 405) message] T [employer] system which generated this result transmitted reference range : 3.5 - 5.5 gm/dL . The reference range was not used to interpr et this result as normal/abnormal . Alpha 1 Fraction 0.3 See_Comment [Automated (test code = 389) message] [employer] system which generated this result transmitted reference range : 0.2 - 0.4 gm/dL . The reference range was not used to interpr et this result as normal/abnormal . Alpha 2 Fraction 0.8 See_Comment [Automated (test code = 390) message] T [employer] system which generated this result transmitted reference [...] 5.4 See_Comment L [Autom ated code = 3767) message] The system which generated this result transmitted reference range : 6.0 - 8.3 gm/dL . The reference range was not used to interpr et this result as normal/abnormal . ISSA (test code = ISSA) Flat Screen Worker ID - PIAYA L Lab Interpretation Abnormal (test code = 27213-3) [facility] HospitalProtein electrophoresis, [id number] 14:18:00 Test Item Value Reference Range Interpretation Comments Albumin Fraction 2.5 See_Comment L [Automated (test code = 405) message] [employer] system which generated this result transmitted reference range : 3.5 - 5.5 gm/dL . The reference range was not used to interpr et this result as normal/abnormal . Alpha 1 Fraction 0.3 See_Comment [Automated (test code = 389) message] T [employer] system which generated this result transmitted reference range : 0.2 - 0.4 gm/dL . The reference range was not used to interpr et this result as normal/abnormal . Alpha 2 Fraction 0.8 See_Comment [Automated (test code = 390) message] T [employer] system which generated this result transmitted reference [...] normal/abnormal . ISSA (test code = ISSA) Flat Screen Worker ID - PIAYA L Lab Interpretation Abnormal (test code = 51883-9) [facility]Protein electrophoresis, [id number] 14:18:00 Test Item Value Reference Range Interpretation Comments Albumin Fraction 2.5 See_Comment L [Automated (test code = 405) message] [employer] system which generated this result transmitted reference range : 3.5 - 5.5 gm/dL . The reference range was not used to interpr et this result as normal/abnormal . Alpha 1 Fraction 0.3 See_Comment [Automated (test code = 389) message] [employer] system which generated this result transmitted reference range : 0.2 - 0.4 gm/dL . The reference range was not used to interpr et this result as normal/abnormal . Alpha 2 Fraction 0.8 See_Comment [Automated (test code = 390) message] [employer] system which generated this result transmitted reference [...] normal/abnormal . ISSA (test code = ISSA) Flat Screen Worker ID - PAVEL L Lab Interpretation Abnormal (test code = 25923-7) [facility]Protein electrophoresis, [id number] 14:18:00 Test Item Value Reference Range Interpretation Comments Albumin Fraction 2.5 See_Comment L [Automated (test code = 405) message] T [employer] system which generated this result transmitted reference range : 3.5 - 5.5 gm/dL . The reference range was not used to interpr et this result as normal/abnormal . Alpha 1 Fraction 0.3 See_Comment [Automated (test code = 389) message] [employer] system which generated this result transmitted reference range : 0.2 - 0.4 gm/dL . The reference range was not used to interpr et this result as normal/abnormal . Alpha 2 Fraction 0.8 See_Comment [Automated (test code = 390) message] [employer] system which generated this result transmitted reference [...] Pathologist: (test Angela code = 2616) MD Carely (electronic signature) Protein, Total (test 5.4 See_Comment L [Autom ated code = 2716) message] The system which generated this result transmitted reference range : 6.0 - 8.3 gm/dL . The reference range was not used to interpr et this result as normal/abnormal . ISSA (test code = ISSA) Flat Screen Worker ID - PAVEL Martin Lab Interpretation Abnormal (test code = 32355-5) [facility] HospitalProtein electrophoresis, [id number] 14:18:00 Test Item Value Reference Range Interpretation Comments Albumin Fraction 2.5 See_Comment L [Automated (test code = 405) message] [employer] system which generated this result transmitted reference range : 3.5 - 5.5 gm/dL . The reference range was not used to interpr et this result as normal/abnormal . Alpha 1 Fraction 0.3 See_Comment [Automated (test code = 389) message] [employer] system which generated this result transmitted reference range : 0.2 - 0.4 gm/dL . The reference range was not used to interpr et this result as normal/abnormal . Alpha 2 Fraction 0.8 See_Comment [Automated (test code = 390) message] [employer] system which generated this result transmitted reference [...] 5.4 See_Comment L [Autom ated code = 4841) message] The system which generated this result transmitted reference range : 6.0 - 8.3 gm/dL . The reference range was not used to interpr et this result as normal/abnormal . ISSA (test code = ISSA) Flat Screen Worker ID - PAVEL Martin Lab Interpretation Abnormal (test code = 55958-7) [facility]Protein electrophoresis, [id number] 14:18:00 Test Item Value Reference Range Interpretation [...] 5.4 See_Comment L [Autom ated code = 9341) message] The system which generated this result transmitted reference range : 6.0 - 8.3 gm/dL . The reference range was not used to interpr et this result as normal/abnormal . ISSA (test code = ISSA) Flat Screen Worker ID - PIAYA L Lab Interpretation Abnormal (test code = 77693-3) [facility] HospitalPROTEIN ELECTROPHORESIS, [id number] 14:18:00 Test Item Value Reference Range Interpretation [...] of acute inflammation. No monoclonal bands detected. [id number] Angela Howe MD (BEAKER) (test code = (electronic signature) 2616) PROTEIN TOTAL SERUM, 5.4 gm/dL 6.0-8.3 L SPEP (BEAKER) (test code = 2780) Flat Screen Worker ID - PAVEL LANAEROBIC [id number] 14:06:00 Test Item Value Reference Range Interpretation Comments CULTURE (BEAKER) (test No anaerobes isolated code = 1095) ANAEROBIC [id number] 14:05:00 Test Item Value Reference Range Interpretation Comments CULTURE (BEAKER) (test No anaerobes isolated code = 1095) POCT-GLUCOSE [id number] 11:50:00 Test Item Value Reference Range Interpretation Comments POC-GLUCOSE METER 151 mg/dL 70-110 H : TESTED A T [facility] [address] (BEAKER) (test code [address] = 1538) [facility] [address]: Flat Screen Worker/Techni cornelia ID = [id number] for Buff ord, Jesi ANG, NON-TUNNELED CATH/PICC >3 Y.O. 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 Okay to place per Nephrology [facility]ENTER[facility] FRANDY FORD : 1975 Sex: MFINAL REPORT Procedure: PICC line insertion. History: Need for long-term IV access. Jig Fitter: Charlie Grigsby MD. Windows Support Engineer: None Modality: Sonography and fluoroscopy. DOSE [...] and fluoroscopic guided placement of a 5 [place] dual lumen PICC line via a right mid upper arm brachial vein approach with the catheter tip in distal SVC/RA, a satisfactory position for use. Thank you for the opportunity to assist in the care of your patient. Signed: Charlie Grigsby MDRgaylord [facility] Verified Date/Time: 04/05/2020 11:32:55 Reading Location: [facility] Radiology Reading Room IR PICC line placement older than 5 [id number] 11:32:00 Interface, External Ris In - 04/05/2020 11:35 AM CSTFINAL REPORT Procedure: PICC line insertion. History: Need for long-term IV access. Jig Fitter: Charlie Grigsby MD. Windows Support Engineer: None Modality: Sonography and fluoroscopy. DOSE [...] and fluoroscopic guided placement of a 5 [place] dual lumen PICC line via a right mid upper arm brachial vein approach with the catheter tip in distal SVC/RA, a satisfactory position for use. Thank you for the opportunity to assist in the care of your patient. Signed: Charlie Grigsby MDReport Verified Date/Time: 04/05/2020 11:32:55 Reading Location: [facility] older than 5 [id number] 11:32:00 Interface, External Ris In - 04/05/2020 11:35 AM CSTFINAL REPORT Procedure: PICC line insertion. History: Need for long-term IV access. Jig Fitter: Charlie Grigsby MD. Windows Support Engineer: None Modality: Sonography and fluoroscopy. DOSE [...] and fluoroscopic guided placement of a 5 [place] dual lumen PICC line via a right mid upper arm brachial vein approach with the catheter tip in distal SVC/RA, a satisfactory position for use. Thank you for the opportunity to assist in the care of your patient. Signed: Charlie Grigsby MDReport Verified Date/Time: 04/05/2020 11:32:55 Reading Location: [facility] than 5 [id number] 11:32:00 Interface, External Ris In - 04/05/2020 11:35 AM CSTFINAL REPORT Procedure: PICC line insertion. History: Need for long-term IV access. Jig Fitter: Charlie Grigsby MD. Windows Support Engineer: None Modality: Sonography and fluoroscopy. DOSE [...] and fluoroscopic guided placement of a 5 [place] dual lumen PICC line via a right mid upper arm brachial vein approach with the catheter tip in distal SVC/RA, a satisfactory position for use. Thank you for the opportunity to assist in the care of your patient. Signed: Charlie Grigsby MDReport Verified Date/Time: 04/05/2020 11:32:55 Reading Location: [facility] older than 5 [id number] 11:32:00 Interface, External Ris In - 04/05/2020 11:35 AM CSTFINAL REPORT Procedure: PICC line insertion. History: Need for long-term IV access. Jig Fitter: Charlie Grigsby MD. Windows Support Engineer: None Modality: Sonography and fluoroscopy. DOSE [...] and fluoroscopic guided placement of a 5 [place]ian dual lumen PICC line via a right mid upper arm brachial vein approach with the catheter tip in distal SVC/RA, a satisfactory position for use. Thank you for the opportunity to assist in the care of your patient. Signed: Charlie Grigsby Verified Date/Time: 04/05/2020 11:32:55 Reading Location: [facility] Radiology [facility] [id number] 09:34:00 Test Item Value Reference Range Interpretation Comments POC-GLUCOSE METER 72 mg/dL 70-110 : TESTED A T [address] (BEAKER) (test code = [address], [address]) [place] [address]: Flat Screen Worker/Techni cornelia ID = [id number] for Chencho h Rina POCT-GLUCOSE [id number] 08:11:00 Test Item Value Reference Range Interpretation Comments POC-GLUCOSE METER 83 mg/dL 70-110 : TESTED A T [address] (BEAKER) (test code = [address], [address]) [place] [address]: Flat Screen Worker/Techni cornelia ID = [id number] for Krystian Espinalnice BASIC METABOLIC [id number] 06:57:00 Test Item Value Reference Range Interpretation [...] S NOT APPLICABLE FOR DIALYSIS PATIEN TS. Flat Screen Worker ID - LITOOperator ID - LITOOperator ID - LITOOperator ID - LITOOperator ID - LITOOperator ID - LITOOperator ID - LITOOperator ID - LITOOperator ID - LITOOperator ID - LITOOperator ID - LITOOperator ID - LITOOperator ID - LITOCBC W/PLT COUNT & AUTO [id number] 05:55:00 Test Item Value Reference Range Interpretation [...] = No growth in 5 days 6463-4) [facility]2020-04-05 01:01:00 Test Item Value Reference Range Interpretation Comments Result (test code = No growth in 5 days 6463-4) [facility]2020-04-05 01:01:00 Test Item Value Reference Range Interpretation Comments Result (test code = No growth in 5 days 6463-4) [facility]2020-04-05 01:01:00 Test Item Value Reference Range Interpretation Comments Result (test code = No growth in 5 days 6463-4) [facility]2020-04-05 01:01:00 Test Item Value Reference Range Interpretation Comments Result (test code = No growth in 5 days 6463-4) [facility] Culture - Routine (Left Venipuncture)2020-04-05 01:01:00 Test Item Value Reference Range Interpretation Comments Result (test code = No growth in 5 days 6463-4) [facility] Culture - Routine (Left Venipuncture)2020-04-05 01:01:00 Test Item Value Reference Range Interpretation Comments Result (test code = No growth in 5 days 6463-4) [facility] [id number] 01:01:00 Test Item Value Reference Range Interpretation Comments CULTURE (BEAKER) (test No growth in 5 days code = 1095) BLOOD [id number] 01:01:00 Test Item Value Reference Range Interpretation Comments CULTURE (BEAKER) (test No growth in 5 days code = 1095) Vancomycin level, [id number] 00:11:00 Test Item Value Reference Range Interpretation Comments Vancomycin Tr (test code = 17.1 ug/mL 10-20 4092-3) ISSA (test code = ISSA) Flat Screen Worker ID - ARCHIE Lab Interpretation (test Normal code = 88781-6) [facility], [id number] 00:11:00 Test Item Value Reference Range Interpretation Comments Vancomycin Tr (test code = 17.1 ug/mL 10-20 4092-3) ISSA (test code = ISSA) Flat Screen Worker ID - ARCHIE Lab Interpretation (test Normal code = 71616-8) [facility], [id number] 00:11:00 Test Item Value Reference Range Interpretation Comments Vancomycin Tr (test code = 17.1 ug/mL 10.0-20.0 4092-3) ISSA (test code = ISSA) Flat Screen Worker ID - ARCHIE Lab Interpretation (test Normal code = 32743-2) [facility], [id number] 00:11:00 Test Item Value Reference Range Interpretation Comments Vancomycin Tr (test code = 17.1 ug/mL 10.0-20.0 4092-3) ISSA (test code = ISSA) Flat Screen Worker ID - ARCHIE Lab Interpretation (test Normal code = 98011-2) [facility], [id number] 00:11:00 Test Item Value Reference Range Interpretation Comments Vancomycin Tr (test code = 17.1 ug/mL 10.0-20.0 4092-3) ISSA (test code = ISSA) Flat Screen Worker ID - ARCHIE Lab Interpretation (test Normal code = 72413-4) [facility], [id number] 00:11:00 Test Item Value Reference Range Interpretation Comments Vancomycin Tr (test code = 17.1 ug/mL 10-20 4092-3) ISSA (test code = ISSA) Flat Screen Worker ID - ARCHIE Lab Interpretation (test Normal code = 20478-7) [facility], [id number] 00:11:00 Test Item Value Reference Range Interpretation Comments Vancomycin Tr (test code = 17.1 ug/mL 10-20 4092-3) ISSA (test code = ISSA) Flat Screen Worker ID - ARCHIE Lab Interpretation (test Normal code = 81138-3) [facility], [id number] 00:11:00 Test Item Value Reference Range Interpretation Comments VANCOMYCIN TROUGH (BEAKER) (test 17.1 ug/mL 10.0-20.0 code = 522) Flat Screen Worker ID - LITOPOCT-GLUCOSE [id number] 21:26:00 Test Item Value Reference Range Interpretation Comments POC-GLUCOSE METER 234 mg/dL 70-110 H : TESTED A T [address] (BEAKER) (test code [address], = 15[address]) [place] [address]: Flat Screen Worker/Techni cornelia ID = [id number] for Tiff Roach POCT-GLUCOSE [id number] 15:54:00 Test Item Value Reference Range Interpretation Comments POC-GLUCOSE METER 200 mg/dL 70-110 H : TESTED A T [address] (BEAKER) (test code [address], = 1538) [place] [address]: Flat Screen Worker/Techni cornelia ID = [id number] for Tiff Roach POCT-GLUCOSE [id number] 11:48:00 Test Item Value Reference Range Interpretation Comments POC-GLUCOSE METER 197 mg/dL 70-110 H : TESTED A T [address] (BEAKER) (test code [address], = 15[address]) [facility] [address]: Flat Screen Worker/Techni cornelia ID = [id number] for Tiff Roach Hepatitis panel, [id number] 10:58:00 Test Item Value Reference Range Interpretation Comments Hep A IgM (test code = Nonreactive Nonreactive 32465-9) Hep B C IgM (test code = Nonreactive Nonreactive 77694-0) Hepatitis C Ab (test Nonreactive Nonreactive code = 34089-8) HBsAg Screen (test code Nonreactive Nonreactive = 5195-3) ISSA (test code = ISSA) Flat Screen Worker ID - BARRERA M Lab Interpretation (test Normal code = 05427-9) [facility], [id number] 10:58:00 Test Item Value Reference Range Interpretation Comments Hep A IgM (test code = Nonreactive Nonreactive 36396-4) Hep B C IgM (test code = Nonreactive Nonreactive 14267-0) Hepatitis C Ab (test Nonreactive Nonreactive code = 32577-7) HBsAg Screen (test code Nonreactive Nonreactive = 5195-3) ISSA (test code = ISSA) Flat Screen Worker ID - BARRERA M Lab Interpretation (test Normal code = 00658-7) [facility], [id number] 10:58:00 Test Item Value Reference Range Interpretation Comments Hep A IgM (test code = Nonreactive Nonreactive 13573-0) Hep B C IgM (test code = Nonreactive Nonreactive 18014-5) Hepatitis C Ab (test Nonreactive Nonreactive code = 23291-8) HBsAg Screen (test code Nonreactive Nonreactive = 5195-3) ISSA (test code = ISSA) Flat Screen Worker ID - BARRERA M Lab Interpretation (test Normal code = 65365-8) [facility], [id number] 10:58:00 Test Item Value Reference Range Interpretation Comments Hep A IgM (test code = Nonreactive Nonreactive 91793-8) Hep B C IgM (test code = Nonreactive Nonreactive 18267-8) Hepatitis C Ab (test Nonreactive Nonreactive code = 82718-7) HBsAg Screen (test code Nonreactive Nonreactive = 5195-3) ISSA (test code = ISSA) Flat Screen Worker ID - BARRERA M Lab Interpretation (test Normal code = 61645-7) [facility] panel, [id number] 10:58:00 Test Item Value Reference Range Interpretation Comments Hep A IgM (test code = Nonreactive Nonreactive 54794-3) Hep B C IgM (test code = Nonreactive Nonreactive 74017-8) Hepatitis C Ab (test Nonreactive Nonreactive code = 85713-6) HBsAg Screen (test code Nonreactive Nonreactive = 5195-3) ISSA (test code = ISSA) Flat Screen Worker ID - BARRERA M Lab Interpretation (test Normal code = 57851-2) [facility] panel, [id number] 10:58:00 Test Item Value Reference Range Interpretation Comments Hep A IgM (test code = Nonreactive Nonreactive 01200-8) Hep B C IgM (test code = Nonreactive Nonreactive 70842-0) Hepatitis C Ab (test Nonreactive Nonreactive code = 37370-0) HBsAg Screen (test code Nonreactive Nonreactive = 5195-3) ISSA (test code = ISSA) Flat Screen Worker ID - BARRERA M Lab Interpretation (test Normal code = 54927-9) [facility] panel, [id number] 10:58:00 Test Item Value Reference Range Interpretation Comments Hep A IgM (test code = Nonreactive Nonreactive 34818-3) Hep B C IgM (test code = Nonreactive Nonreactive 82135-0) Hepatitis C Ab (test Nonreactive Nonreactive code = 41625-0) HBsAg Screen (test code Nonreactive Nonreactive = 5195-3) ISSA (test code = ISSA) Flat Screen Worker ID - BARRERA M Lab Interpretation (test Normal code = 54346-0) [facility] PANEL, [id number] 10:58:00 Test Item Value Reference Range Interpretation Comments HEPATITIS A IGM ANTIBODY (BEAKER) Nonreactive Nonreactive (test code = 498) HEPATITIS B CORE IGM ANTIBODY Nonreactive Nonreactive (BEAKER) (test code = 645) HEPATITIS C ANTIBODY (BEAKER) Nonreactive Nonreactive (test code = 367) HEPATITIS B SURFACE ANTIGEN (2) Nonreactive Nonreactive (BEAKER) (test code = 2585) Flat Screen Worker ID - BARRERA MUREA NITROGEN, RANDOM [id number] 10:45:00 Test Item Value Reference Range Interpretation Comments UREA NITROGEN URINE (BEAKER) (test 528 mg/dL code = 538) Reference Range: No NormalsOperator ID - BARRERA MSURGICALLY OBTAINED CULTURE + GRAM [id number] 10:30:00 Test Item Value Reference Range Interpretation Comments CULTURE (BEAKER) A <1+ Coagula se negative (test code = Staphylococcus 1095) GRAM STAIN No WBCs RESULT (BEAKER) (test code = 1123) GRAM STAIN 2+ gram positive RESULT (BEAKER) cocci in pairs (test code = and clusters 986670) SURGICALLY OBTAINED CULTURE + GRAM [id number] 09:52:00 Test Item Value Reference Range Interpretation Comments CULTURE (BEAKER) A <1+ Viridan s (test code = Streptococcus 1095) GRAM STAIN No WBCs RESULT (BEAKER) (test code = 1123) GRAM STAIN No organisms seen RESULT (BEAKER) (test code = 847965) TISSUE [id number] 09:51:00Surgical Pathology Report Case: [id number] Authorizing Provider: Laura Nguyen DPM Collected: 04/01/2020 01:12 PM Ordering Location: [facility] Med Surg 5th Floor Received: 04/02/2020 08:38 AM Pathologist: Hilda Mack MD Specimen: Fo ot, Left, Bone biopsy 1st metatarsal, left BONE, FIRST LEFT METATARSAL, BIOPSY: - BONE WITH FOCAL REPARATIVE/REGENERATIVE CHANGES - NO ACUTE OSTEOMYELITIS ISSEEN Signing Pathologist Direct Phone Line: [phone] signed by Hilda Mack MD on 04/04/2020 at 9:51 [id number]; [id number] infectionBone biopsy first metatarsal, leftThespecimen is received in fixative and labeled with the patient's name, medical record number and designated as "foot left" and consists of a bone core biopsy measuring 1.5 cm in length and 0.2 cm in diameter. The specimen is entirely submitted into A1 and into decal solution. MG/pl Performed [facility], Department of Pathology, [address] [place] [address], [facility], Department of Pathology, [address] [place] [address], [facility], [facility] of Pathology, [address] [place] [address], MGNY-GLUCOSE METER 2020-04-04 08:22:00 Test Item Value Reference Range Interpretation Comments POC-GLUCOSE METER 167 mg/dL 70-110 H : TESTED A T [address] (BEAKER) (test code [facility] [address], = [address]) [place] [address]: Flat Screen Worker/Techni cornelia ID = [id number] for Tiff Roach PTH, [id number] 07:24:00 Test Item Value Reference Range Interpretation Comments PARATHYROID HORMONE INTACT 365.7 pg/mL 15.0-90.0 H (BEAKER) (test code = 577) Flat Screen Worker ID - [id number] METABOLIC [id number] 06:33:00 Test Item Value Reference Range Interpretation [...] S NOT APPLICABLE FOR DIALYSIS PATIEN TS. Flat Screen Worker ID - [id number] ID - [id number] ID - [id number] ID - UARM19Otdrmneo ID - [id number] ID - IYUR16Vwjlqrcc ID - YSFY61Nyzqlubw ID - GKEQ27Xciluoeu ID - [id number] ID - VHPE07Iwoolqkp ID - [id number] ID - JZLH29Mtduvkkk ID - [id number] W/PLT COUNT & AUTO [id number] 06:01:00 Test Item Value Reference Range Interpretation [...] PERCENT (BEAKER) (test code = 2801) POCT-GLUCOSE [id number] 21:43:00 Test Item Value Reference Range Interpretation Comments POC-GLUCOSE METER 242 mg/dL 70-110 H : TESTED A T [address] (BEAKER) (test code [address], = 1538) [facility] [place] [address]: Flat Screen Worker/Techni cornelia ID = [id number] for Heidy Barrow HIV-1 Antigen with HIV-1/2 [id number] 18:37:00 Test Item Value Reference Range Interpretation Comments HIV-1 Antigen with HIV Nonreactive Nonreactive 1&2 Antibody (test code = 14733-4) ISSA (test code = ISSA) Flat Screen Worker ID - [id number] Lab Interpretation (test Normal code = 53939-4) [facility] HIV-1/2 [id number] 18:37:00 Test Item Value Reference Range Interpretation Comments HIV-1 Antigen with HIV Nonreactive Nonreactive 1&2 Antibody (test code = 08865-5) ISSA (test code = ISSA) Flat Screen Worker ID - [id number] Lab Interpretation (test Normal code = 96335-7) [facility] Antigen with HIV-1/2 [id number] 18:37:00 Test Item Value Reference Range Interpretation Comments HIV-1 Antigen with HIV Nonreactive Nonreactive 1&2 Antibody (test code = 08798-9) ISSA (test code = ISSA) Flat Screen Worker ID - [id number] Lab Interpretation (test Normal code = 27463-7) [facility] Antigen with HIV-1/2 [id number] 18:37:00 Test Item Value Reference Range Interpretation Comments HIV-1 Antigen with HIV Nonreactive Nonreactive 1&2 Antibody (test code = 91511-7) ISSA (test code = ISSA) Flat Screen Worker ID - [id number] Lab Interpretation (test Normal code = 66792-4) [facility] Antigen with HIV-1/2 [id number] 18:37:00 Test Item Value Reference Range Interpretation Comments HIV-1 Antigen with HIV Nonreactive Nonreactive 1&2 Antibody (test code = 90077-1) ISSA (test code = ISSA) Flat Screen Worker ID - [id number] Lab Interpretation (test Normal code = 84449-5) [facility] Antigen with HIV-1/2 [id number] 18:37:00 Test Item Value Reference Range Interpretation Comments HIV-1 Antigen with HIV Nonreactive Nonreactive 1&2 Antibody (test code = 43259-2) ISSA (test code = ISSA) Flat Screen Worker ID - [id number] Lab Interpretation (test Normal code = 80402-4) [facility] Antigen with HIV-1/2 [id number] 18:37:00 Test Item Value Reference Range Interpretation Comments HIV-1 Antigen with HIV Nonreactive Nonreactive 1&2 Antibody (test code = 46939-2) ISSA (test code = ISSA) Flat Screen Worker ID - [id number] Lab Interpretation (test Normal code = 44971-1) [facility] ANTIGEN WITH HIV-1/2 [id number] 18:37:00 Test Item Value Reference Range Interpretation Comments HIV-1 ANTIGEN WITH HIV 1\\T\\2 Nonreactive Nonreactive ANTIBODY (2) (BEAKER) (test code = 2586) Flat Screen Worker ID - [id number] METABOLIC [id number] 17:38:00 Test Item Value Reference Range Interpretation [...] S NOT APPLICABLE FOR DIALYSIS PATIEN TS. Flat Screen Worker ID - [id number] ID - [id number] ID - [id number] ID - [id number] ID - [id number] ID - [id number] ID - [id number] ID - [id number] ID - [id number] ID - [id number] ID - [id number] ID - [id number] ID - [id number] W/PLT COUNT & AUTO [id number] 17:24:00 Test Item Value Reference Range Interpretation [...] PERCENT (BEAKER) (test code = 2801) POCT-GLUCOSE [id number] 16:16:00 Test Item Value Reference Range Interpretation Comments POC-GLUCOSE METER 228 mg/dL 70-110 H : TESTED A T [address] (BEAKER) (test code [address], = 1538) [facility] [address]: Flat Screen Worker/Techni cornelia ID = [id number] for Tim rodriguez Tiff WOUND CULTURE + GRAM [id number] 14:46:00 Test Item Value Reference Interpretation Comments [...] 4+ Mixed geri (BEAKER) (test code = 199513) 3+ Skin floraPOCT-GLUCOSE [id number] 11:46:00 Test Item Value Reference Range Interpretation Comments POC-GLUCOSE METER 251 mg/dL 70-110 H : TESTED A T [address] (BEAKER) ([facility] [address], = [address]) [facility] [address]: Flat Screen Worker/Techni cornelia ID = [id number] for Tiff Roach PROTEIN, RANDOM [id number] 11:18:00 Test Item Value Reference Range Interpretation Comments PROTEIN, URINE (BEAKER) (test code 214 mg/dL 0-14 H = 1569) Flat Screen Worker ID - [id number] ID - [id number], RANDOM [id number] 11:02:00 Test Item Value Reference Range Interpretation Comments CREATININE URINE (BEAKER) (test 129.1 mg/dL code = 375) Reference Range: No NormalsOperator ID - [id number], RANDOM [id number] 11:00:00 Test Item Value Reference Range Interpretation Comments SODIUM URINE (BEAKER) (test code = 20 meq/L 243) Reference Range: No NormalsOperator ID - [id number] 11:00:00 Test Item Value Reference Range Interpretation Comments PHOSPHORUS (CECILIO) (test code = 5.0 mg/dL 2.5-4.5 H 604) Flat Screen Worker ID - [id number] w/Ufxgldpdohk8090-64-86 10:57:00 Test Item Value Reference Range Interpretation Comments Color, UA (test code Yellow = 5778-6) Clarity, UA (test Slightly Cloudy code = 5767-9) Specific Garrett, UA 1.025 1.001-1.035 (test code = 5811-5) pH, UA (test code = 5.0 5.0-8.0 5803-2) Protein, UA (test 100 mg/dL Negative A code = 70300-2) Glucose, UA (test Negative Negative code = 365) Ketones, UA (test Negative Negative code = 2514-8) Bilirubin, UA (test Negative Negative code = 47556-3) Blood, UA (test code Small Negative A = 45765-0) Nitrite, UA (test Negative Negative code = 5802-4) Leukocytes, UA (test Negative Negative code = 5799-2) Urobilinogen, UA 0.2 mg/dL 0.2-1 (test code = 59555-8) Bacteria, UA (test Occasional code = 67946-6) RBC, UA (test code = 5-10 See_Comment [Autom ated 799-7) message] The system which generated this result transmitted reference range : /HPF. The reference range was not used to interpret this result as normal/abnormal . WBC, UA (test code = <5 See_Comment [Autom ated 36708-5) message] The system which generated this result transmitted reference range : /HPF. The reference range was not used to interpret this result as normal/abnormal . SQUAMOUS EPITHELIAL <5 See_Comment [Automa josé luis (test code = 20250-8) messag e] The system which generated this result transmitted reference range : /HPF. The reference range was not used to interpret this result as normal/abnormal . Specimen Source (test code = 2795) Lab Interpretation Abnormal (test code = 32221-4) [facility]/Vvoijtagelm2555-84-90 10:57:00 Test Item Value Reference Range Interpretation Comments Color, UA (test code Yellow = 5778-6) Clarity, UA (test Slightly Cloudy code = 5767-9) Specific Garrett, UA 1.025 1.001-1.035 (test code = 5811-5) pH, UA (test code = 5.0 5.0-8.0 5803-2) Protein, UA (test 100 mg/dL Negative A code = 91692-0) Glucose, UA (test Negative Negative code = 365) Ketones, UA (test Negative Negative code = 2514-8) Bilirubin, UA (test Negative Negative code = 57009-8) Blood, UA (test code Small Negative A = 71338-1) Nitrite, UA (test Negative Negative code = 5802-4) Leukocytes, UA (test Negative Negative code = 5799-2) Urobilinogen, UA 0.2 mg/dL 0.2-1 (test code = 64732-4) Bacteria, UA (test Occasional code = 68282-1) RBC, UA (test code = 5-10 See_Comment [Autom ated 799-7) message] The system which generated this result transmitted reference range : /HPF. The reference range was not used to interpret this result as normal/abnormal . WBC, UA (test code = <5 See_Comment [Autom ated 00435-1) message] The system which generated this result transmitted reference range : /HPF. The reference range was not used to interpret this result as normal/abnormal . SQUAMOUS EPITHELIAL <5 See_Comment [Automa josé luis (test code = 73101-0) messag e] The system which generated this result transmitted reference range : /HPF. The reference range was not used to interpret this result as normal/abnormal . Specimen Source (test code = 2795) Lab Interpretation Abnormal (test code = 46508-0) [facility]/Rjastubkpap0419-91-94 10:57:00 Test Item Value Reference Range Interpretation Comments Color, UA (test code Yellow = 5778-6) Clarity, UA (test Slightly Cloudy code = 5767-9) Specific Garrett, UA 1.025 1.001-1.035 (test code = 5811-5) pH, UA (test code = 5.0 5.0-8.0 5803-2) Protein, UA (test 100 mg/dL Negative A code = 59261-3) Glucose, UA (test Negative Negative code = 365) Ketones, UA (test Negative Negative code = 2514-8) Bilirubin, UA (test Negative Negative code = 60425-3) Blood, UA (test code Small Negative A = 78564-1) Nitrite, UA (test Negative Negative code = 5802-4) Leukocytes, UA (test Negative Negative code = 5799-2) Urobilinogen, UA 0.2 mg/dL 0.2-1 (test code = 86952-3) Bacteria, UA (test Occasional code = 21466-0) RBC, UA (test code = 5-10 See_Comment [Autom ated 799-7) message] The system which generated this result transmitted reference range : /HPF. The reference range was not used to interpret this result as normal/abnormal . WBC, UA (test code = <5 See_Comment [Autom ated 05319-9) message] The system which generated this result transmitted reference range : /HPF. The reference range was not used to interpret this result as normal/abnormal . SQUAMOUS EPITHELIAL <5 See_Comment [Automa josé luis (test code = 51343-0) messag e] The system which generated this result transmitted reference range : /HPF. The reference range was not used to interpret this result as normal/abnormal . Specimen Source (test code = 2795) Lab Interpretation Abnormal (test code = 45900-1) [facility]/Fwyejvrjavs7829-93-70 10:57:00 Test Item Value Reference Range Interpretation Comments Color, UA (test code Yellow = 5778-6) Clarity, UA (test Slightly Cloudy code = 5767-9) Specific Garrett, UA 1.025 1.001-1.035 (test code = 5811-5) pH, UA (test code = 5.0 5.0-8.0 5803-2) Protein, UA (test 100 mg/dL Negative A code = 80409-5) Glucose, UA (test Negative Negative code = 365) Ketones, UA (test Negative Negative code = 2514-8) Bilirubin, UA (test Negative Negative code = 79835-7) Blood, UA (test code Small Negative A = 08017-4) Nitrite, UA (test Negative Negative code = 5802-4) Leukocytes, UA (test Negative Negative code = 5799-2) Urobilinogen, UA 0.2 mg/dL 0.2-1 (test code = 24559-7) Bacteria, UA (test Occasional code = 76222-7) RBC, UA (test code = 5-10 See_Comment [Autom ated 799-7) message] The system which generated this result transmitted reference range : /HPF. The reference range was not used to interpret this result as normal/abnormal . WBC, UA (test code = <5 See_Comment [Autom ated 38141-9) message] The system which generated this result transmitted reference range : /HPF. The reference range was not used to interpret this result as normal/abnormal . SQUAMOUS EPITHELIAL <5 See_Comment [Automa josé luis (test code = 20135-9) messag e] The system which generated this result transmitted reference range : /HPF. The reference range was not used to interpret this result as normal/abnormal . Specimen Source (test code = 2795) Lab Interpretation Abnormal (test code = 66441-5) [facility][id number] 10:57:00 Test Item Value Reference Range Interpretation Comments Color, UA (test code Yellow = 5778-6) Clarity, UA (test Slightly Cloudy code = 5767-9) Specific Garrett, UA 1.025 1.001-1.035 (test code = 5811-5) pH, UA (test code = 5.0 5.0-8.0 5803-2) Protein, UA (test 100 mg/dL Negative A code = 40159-4) Glucose, UA (test Negative Negative code = 365) Ketones, UA (test Negative Negative code = 2514-8) Bilirubin, UA (test Negative Negative code = 95374-3) Blood, UA (test code Small Negative A = 57706-1) Nitrite, UA (test Negative Negative code = 5802-4) Leukocytes, UA (test Negative Negative code = 5799-2) Urobilinogen, UA 0.2 mg/dL 0.2-1.0 (test code = 63871-4) Bacteria, UA (test Occasional code = 20173-2) RBC, UA (test code = 5-10 See_Comment [Autom ated 799-7) message] The system which generated this result transmitted reference range : /HPF. The reference range was not used to interpret this result as normal/abnormal . WBC, UA (test code = <5 See_Comment [Autom ated 91038-4) message] The system which generated this result transmitted reference range : /HPF. The reference range was not used to interpret this result as normal/abnormal . SQUAMOUS EPITHELIAL <5 See_Comment [Automa josé luis (test code = 62892-7) messag e] The system which generated this result transmitted reference range : /HPF. The reference range was not used to interpret this result as normal/abnormal . Specimen Source (test code = 2795) Lab Interpretation Abnormal (test code = 31771-1) [facility]/[id number] 10:57:00 Test Item Value Reference Range Interpretation Comments Color, UA (test code Yellow = 5778-6) Clarity, UA (test Slightly Cloudy code = 5767-9) Specific Garrett, UA 1.025 1.001-1.035 (test code = 5811-5) pH, UA (test code = 5.0 5.0-8.0 5803-2) Protein, UA (test 100 mg/dL Negative A code = 32979-0) Glucose, UA (test Negative Negative code = 365) Ketones, UA (test Negative Negative code = 2514-8) Bilirubin, UA (test Negative Negative code = 43035-7) Blood, UA (test code Small Negative A = 22393-2) Nitrite, UA (test Negative Negative code = 5802-4) Leukocytes, UA (test Negative Negative code = 5799-2) Urobilinogen, UA 0.2 mg/dL 0.2-1.0 (test code = 69781-8) Bacteria, UA (test Occasional code = 67513-1) RBC, UA (test code = 5-10 See_Comment [Autom ated 799-7) message] The system which generated this result transmitted reference range : /HPF. The reference range was not used to interpret this result as normal/abnormal . WBC, UA (test code = <5 See_Comment [Autom ated 61451-4) message] The system which generated this result transmitted reference range : /HPF. The reference range was not used to interpret this result as normal/abnormal . SQUAMOUS EPITHELIAL <5 See_Comment [Automa josé luis (test code = 55050-1) messag e] The system which generated this result transmitted reference range : /HPF. The reference range was not used to interpret this result as normal/abnormal . Specimen Source (test code = 2795) Lab Interpretation Abnormal (test code = 55009-2) [facility]/Jqoubzscvfy3769-28-32 10:57:00 Test Item Value Reference Range Interpretation Comments Color, UA (test code Yellow = 5778-6) Clarity, UA (test Slightly Cloudy code = 5767-9) Specific Garrett, UA 1.025 1.001-1.035 (test code = 5811-5) pH, UA (test code = 5.0 5.0-8.0 5803-2) Protein, UA (test 100 mg/dL Negative A code = 05824-2) Glucose, UA (test Negative Negative code = 365) Ketones, UA (test Negative Negative code = 2514-8) Bilirubin, UA (test Negative Negative code = 22829-1) Blood, UA (test code Small Negative A = 18134-0) Nitrite, UA (test Negative Negative code = 5802-4) Leukocytes, UA (test Negative Negative code = 5799-2) Urobilinogen, UA 0.2 mg/dL 0.2-1.0 (test code = 59365-3) Bacteria, UA (test Occasional code = 31179-7) RBC, UA (test code = 5-10 See_Comment [Autom ated 799-7) message] The system which generated this result transmitted reference range : /HPF. The reference range was not used to interpret this result as normal/abnormal . WBC, UA (test code = <5 See_Comment [Autom ated 01978-9) message] The system which generated this result transmitted reference range : /HPF. The reference range was not used to interpret this result as normal/abnormal . SQUAMOUS EPITHELIAL <5 See_Comment [Automa josé luis (test code = 64229-3) messag e] The system which generated this result transmitted reference range : /HPF. The reference range was not used to interpret this result as normal/abnormal . Specimen Source (test code = 2795) Lab Interpretation Abnormal (test code = 96058-0) [facility] [id number] 10:57:00 Test Item Value Reference Range Interpretation [...] pg/mL 0-100 H (test code = 700) Flat Screen Worker ID - [id number], RENAL, [id number] 08:56:00Reason for exam:- >[facility] 1975 Sex: MFINAL [...] MDReport Verified Date/Time: 04/03/2020 08:56:12 Reading Location: [facility] Radiology Reading Room CT, EXTREMITY, LOWER WITHOUT CONTRAST, [id number] 08:50:00Unlisted Reason for Exam - Click Yes and Enter Reason Below->YesL Foot woundUnlisted Reason for Exam->L Foot infection to r/o osteomyelitisPlease specify:->Foot [facility] 1975 Sex: MFINAL [...] Verified Date/Time: 04/03/2020 08:50:03 Reading Location: [facility] C013X Ortho Consult Reading Room CT lower extremity without IV contrast [id number] 08:50:00Interface, External Ris In - 04/03/2020 8:52 [...] Gonzaleseport Verified Date/Time: 04/03/2020 08:50:03 Reading Location: [facility] C013X [facility] [id number] 08:50:00 Interface, External Ris In - 04/03/2020 [...] MDReport Verified Date/Time: 04/03/2020 08:50:03 Reading Location: [facility] C013X [facility] [id number] 08:50:00Interface, External Ris In - 04/03/2020 8:52 [...] Gonzales Verified Date/Time: 04/03/2020 08:50:03 Reading Location: [place] [id number] [facility] [id number] 08:50:00Interface, External Ris In - 04/03/2020 8:52 [...] Gonzales Verified Date/Time: 04/03/2020 08:50:03 Reading Location: [place] [id number] Ortho Consult Reading Room [facility] POCT-GLUCOSE [id number] 07:39:00 Test Item Value Reference Range Interpretation Comments POC-GLUCOSE METER 178 mg/dL 70-110 H : TESTED A T [address] (BEAKER) (test code [address], = 1538) [facility] [place] [address]: Flat Screen Worker/Techni cornelia ID = [id number] for Tiff Roach BASIC METABOLIC [id number] 06:16:00 Test Item Value Reference Range Interpretation [...] S NOT APPLICABLE FOR DIALYSIS PATIEN TS. Flat Screen Worker ID - LITOOperator ID - LITOOperator ID - LITOOperator ID - LITOOperator ID - LITOOperator ID - LITOOperator ID - LITOOperator ID - LITOOperator ID - LITOOperator ID - LITOOperator ID - LITOOperator ID - LITOOperator ID - LITOCBC (Hemogram only)2020-04-03 05:47:00 Test Item Value Reference Range Interpretation Comments WBC (test code = 6690-2) 8.9 See_Comment [A utomated message] The system [employer] generated this result transmitted ref erence range: 4.0 - 10 .0 K/L. The refe rence range was not u sed to interpret this result as normal/abnor mal. RBC (test code = 789-8) 3.59 See_Comment L [Au tomated message] The system [employer] generated this result transmitted ref erence range: 4.20 - 5 .80 M/L. The refe rence range was not u sed to interpret this result as normal/abnor mal. MCHC (test code = 786-4) 32.4 See_Comment L [A utomated message] The system [employer] generated this result transmitted ref erence range: [...] See_Comment [Aut omated message] 777-3) The system [employer] generated this result transmitted ref erence range: 150 - 43 0 K/CU MM. The referen ce range was not u sed to interpret this result as normal/abnor mal. MPV (test code = 11.7 fL 6-11.5 H 31129-1) nRBC (test code = 413) 0 See_Comment [Aut omated message] The system [employer] generated this result transmitted ref erence range: 0 - 0 /1 00 WBC. The refere nce range was not u sed to interpret this result as normal/abnor mal. Lab Interpretation (test Abnormal code = 28273-4) [facility] (Hemogram only)2020-04-03 05:47:00 Test Item Value Reference Range Interpretation Comments WBC (test code = 6690-2) 8.9 See_Comment [A utomated message] The system [employer] generated this result transmitted ref erence range: 4.0 - 10 .0 K/L. The refe rence range was not u sed to interpret this result as normal/abnor mal. RBC (test code = 789-8) 3.59 See_Comment L [Au tomated message] The system [employer] generated this result transmitted ref erence range: 4.20 - 5 .80 M/L. The refe rence range was not u sed to interpret this result as normal/abnor mal. MCHC (test code = 786-4) 32.4 See_Comment L [A utomated message] The system [employer] generated this result transmitted ref erence range: [...] See_Comment [Aut omated message] 777-3) The system [employer] generated this result transmitted ref erence range: 150 - 43 0 K/CU MM. The referen ce range was not u sed to interpret this result as normal/abnor mal. MPV (test code = 11.7 fL 6-11.5 H 48763-6) nRBC (test code = 413) 0 See_Comment [Aut omated message] The system [employer] generated this result transmitted ref erence range: 0 - 0 /1 00 WBC. The refere nce range was not u sed to interpret this result as normal/abnor mal. Lab Interpretation (test Abnormal code = 72028-2) [facility] (Hemogram only)2020-04-03 05:47:00 Test Item Value Reference Range Interpretation Comments WBC (test code = 6690-2) 8.9 See_Comment [A utomated message] The system [employer] generated this result transmitted ref erence range: 4.0 - 10 .0 K/L. The refe rence range was not u sed to interpret this result as normal/abnor mal. RBC (test code = 789-8) 3.59 See_Comment L [Au tomated message] The system [employer] generated this result transmitted ref erence range: 4.20 - 5 .80 M/L. The refe rence range was not u sed to interpret this result as normal/abnor mal. MCHC (test code = 786-4) 32.4 See_Comment L [A utomated message] The system [employer] generated this result transmitted ref erence range: [...] See_Comment [Aut omated message] 777-3) The system [employer] generated this result transmitted ref erence range: 150 - 43 0 K/CU MM. The referen ce range was not u sed to interpret this result as normal/abnor mal. MPV (test code = 11.7 fL 6-11.5 H 50612-7) nRBC (test code = 413) 0 See_Comment [Aut omated message] The system [employer] generated this result transmitted ref erence range: 0 - 0 /1 00 WBC. The refere nce range was not u sed to interpret this result as normal/abnor mal. Lab Interpretation (test Abnormal code = 71386-4) [facility] (Hemogram only)2020-04-03 05:47:00 Test Item Value Reference Range Interpretation Comments WBC (test code = 6690-2) 8.9 See_Comment [A utomated message] The system [employer] generated this result transmitted ref erence range: 4.0 - 10 .0 K/L. The refe rence range was not u sed to interpret this result as normal/abnor mal. RBC (test code = 789-8) 3.59 See_Comment L [Au tomated message] The system [employer] generated this result transmitted ref erence range: 4.20 - 5 .80 M/L. The refe rence range was not u sed to interpret this result as normal/abnor mal. MCHC (test code = 786-4) 32.4 See_Comment L [A utomated message] The system [employer] generated this result transmitted ref erence range: [...] See_Comment [Aut omated message] 777-3) The system [employer] generated this result transmitted ref erence range: 150 - 43 0 K/CU MM. The referen ce range was not u sed to interpret this result as normal/abnor mal. MPV (test code = 11.7 fL 6-11.5 H 71876-5) nRBC (test code = 413) 0 See_Comment [Aut omated message] The system [employer] generated this result transmitted ref erence range: 0 - 0 /1 00 WBC. The refere nce range was not u sed to interpret this result as normal/abnor mal. Lab Interpretation (test Abnormal code = 44823-6) [facility] (Hemogram only)2020-04-03 05:47:00 Test Item Value Reference Range Interpretation Comments WBC (test code = 6690-2) 8.9 See_Comment [A utomated message] The system [employer] generated this result transmitted ref erence range: 4.0 - 10 .0 K/L. The refe rence range was not u sed to interpret this result as normal/abnor mal. RBC (test code = 789-8) 3.59 See_Comment L [Au tomated message] The system [employer] generated this result transmitted ref erence range: 4.20 - 5 .80 M/L. The refe rence range was not u sed to interpret this result as normal/abnor mal. MCHC (test code = 786-4) 32.4 See_Comment L [A utomated message] The system [employer] generated this result transmitted ref erence range: [...] See_Comment [Aut omated message] 777-3) The system [employer] generated this result transmitted ref erence range: 150 - 43 0 K/CU MM. The referen ce range was not u sed to interpret this result as normal/abnor mal. MPV (test code = 11.7 fL 6.0-11.5 H 51263-6) nRBC (test code = 413) 0 See_Comment [Aut omated message] The system [employer] generated this result transmitted ref erence range: 0 - 0 /1 00 WBC. The refere nce range was not u sed to interpret this result as normal/abnor mal. Lab Interpretation (test Abnormal code = 61576-7) [facility] (Hemogram only)2020-04-03 05:47:00 Test Item Value Reference Range Interpretation Comments WBC (test code = 6690-2) 8.9 See_Comment [A utomated message] The system [employer] generated this result transmitted ref erence range: 4.0 - 10 .0 K/L. The refe rence range was not u sed to interpret this result as normal/abnor mal. RBC (test code = 789-8) 3.59 See_Comment L [Au tomated message] The system [employer] generated this result transmitted ref erence range: 4.20 - 5 .80 M/L. The refe rence range was not u sed to interpret this result as normal/abnor mal. MCHC (test code = 786-4) 32.4 See_Comment L [A utomated message] The system [employer] generated this result transmitted ref erence range: [...] See_Comment [Aut omated message] 777-3) The system [employer] generated this result transmitted ref erence range: 150 - 43 0 K/CU MM. The referen ce range was not u sed to interpret this result as normal/abnor mal. MPV (test code = 11.7 fL 6.0-11.5 H 22210-8) nRBC (test code = 413) 0 See_Comment [Aut omated message] The system [employer] generated this result transmitted ref erence range: 0 - 0 /1 00 WBC. The refere nce range was not u sed to interpret this result as normal/abnor mal. Lab Interpretation (test Abnormal code = 77458-4) [facility] (Hemogram only)2020-04-03 05:47:00 Test Item Value Reference Range Interpretation Comments WBC (test code = 6690-2) 8.9 See_Comment [A utomated message] The system [employer] generated this result transmitted ref erence range: 4.0 - 10 .0 K/L. The refe rence range was not u sed to interpret this result as normal/abnor mal. RBC (test code = 789-8) 3.59 See_Comment L [Au tomated message] The system [employer] generated this result transmitted ref erence range: 4.20 - 5 .80 M/L. The refe rence range was not u sed to interpret this result as normal/abnor mal. MCHC (test code = 786-4) 32.4 See_Comment L [A utomated message] The system [employer] generated this result transmitted ref erence range: [...] See_Comment [Aut omated message] 777-3) The system [employer] generated this result transmitted ref erence range: 150 - 43 0 K/CU MM. The referen ce range was not u sed to interpret this result as normal/abnor mal. MPV (test code = 11.7 fL 6.0-11.5 H 42115-5) nRBC (test code = 413) 0 See_Comment [Aut omated message] The system [employer] generated this result transmitted ref erence range: 0 - 0 /1 00 WBC. The refere nce range was not u sed to interpret this result as normal/abnor mal. Lab Interpretation (test Abnormal code = 69896-8) [facility] (HEMOGRAM ONLY)2020-04-03 05:47:00 Test Item Value [...] (BEAKER) (test code = 413) VANCOMYCIN LEVEL, [id number] 22:37:00 Test Item Value Reference Range Interpretation Comments VANCOMYCIN TROUGH (BEAKER) (test 18.7 ug/mL 10.0-20.0 code = 522) Flat Screen Worker ID - JUSTINPOCT-GLUCOSE [id number] 21:28:00 Test Item Value Reference Range Interpretation Comments POC-GLUCOSE METER 234 mg/dL 70-110 H : TESTED A T [address] (BEAKER) (test code [facility], = 1538) [place] [address]: Flat Screen Worker/Techni cornelia ID = [id number] for Heidy Barrow POCT-GLUCOSE [id number] 16:03:00 Test Item Value Reference Range Interpretation Comments POC-GLUCOSE METER 262 mg/dL 70-110 H : TESTED A T [address] (BEAKER) (test code [facility], = 1538) [place] [address]: Flat Screen Worker/Techni cornelia ID = [id number] for Buff justyn, Jesi POCT-GLUCOSE [id number] 11:56:00 Test Item Value Reference Range Interpretation Comments POC-GLUCOSE METER 190 mg/dL 70-110 H : TESTED A T [address] (BEAKER) (test code [facility], = 1538) [place] [address]: Flat Screen Worker/Techni cornelia ID = [id number] for Buff ord, Jesi BASIC METABOLIC [id number] 06:58:00 Test Item Value Reference Range Interpretation [...] S NOT APPLICABLE FOR DIALYSIS PATIEN TS. Flat Screen Worker ID - [id number] ID - [id number] ID - [id number] ID - [id number] ID - [id number] ID - qhhx49Kctgfxnp ID - [id number] ID - gdka11Jiejagub ID - btoc40Cbfbnphi ID - [id number] ID - lvrt07Basllwch ID - [id number] ID - [id number] (HEMOGRAM ONLY)2020-04-02 06:43:00 Test Item Value Reference [...] 0-0 (BEAKER) (test code = 413) POCT-GLUCOSE [id number] 16:21:00 Test Item Value Reference Range Interpretation Comments POC-GLUCOSE METER 262 mg/dL 70-110 H : TESTED A T [address] (BEAKER) (test code [address], = 1538) [place] [address]: Flat Screen Worker/Techni cornelia ID = [id number] for Brandon alejandra, Jesi POCT-GLUCOSE [id number] 13:00:00 Test Item Value Reference Range Interpretation Comments POC-GLUCOSE METER 256 mg/dL 70-110 H : TESTED A T [address] (BEAKER) (test code [address], = 1538) [place] [address]: Flat Screen Worker/Techni cornelia ID = [id number] for Palm er, Ealine POCT-GLUCOSE [id number] 11:49:00 Test Item Value Reference Range Interpretation Comments POC-GLUCOSE METER 255 mg/dL 70-110 H : TESTED A T [address] (BEAKER) (test code [address], = 1538) [place] [address]: Flat Screen Worker/Techni cornelia ID = [id number] for Crystal Karina pavon POCT-GLUCOSE [id number] 07:53:00 Test Item Value Reference Range Interpretation Comments POC-GLUCOSE METER 296 mg/dL 70-110 H : TESTED A T [address] (BEAKER) (test code [address], = 1538) [place] [address]: Flat Screen Worker/Techni cornelia ID = [id number] for Buff ord, Jesi BASIC METABOLIC [id number] 06:06:00 Test Item Value Reference Range Interpretation [...] S NOT APPLICABLE FOR DIALYSIS PATIEN TS. Flat Screen Worker ID - ANSBERTOGOperator ID - ANSBERTOGOperator ID - ANSBERTOGOperator ID - ANSBERTOGOperatorID - ANSBERTOGOperator ID - ANSBERTOGOperator ID - ANSBERTOGOperator ID - ANSBERTOGOperator ID - ANSBERTOGOperator ID - ANSBERTOGOperator ID - ANSBERTOGOperator ID - ANSBERTOGOperator ID - ANSBERTOG POCT-GLUCOSE [id number] 20:54:00 Test Item Value Reference Range Interpretation Comments POC-GLUCOSE METER 252 mg/dL 70-110 H : TESTED A T [address] (BEAKER) (test code [address], = 1538) [place] [address]: Flat Screen Worker/Techni cornelia ID = [id number] for gordon Whitehead POCT-GLUCOSE [id number] 15:59:00 Test Item Value Reference Range Interpretation Comments POC-GLUCOSE METER 335 mg/dL 70-110 H : TESTED A T [address] (BEAKER) (test code [address], = 1538) [place] [address]: Flat Screen Worker/Techni cornelia ID = [id number] for Tiff Roach POCT-GLUCOSE [id number] 15:24:00 Test Item Value Reference Range Interpretation Comments POC-GLUCOSE METER 356 mg/dL 70-110 H : TESTED A T [address] (BEAKER) (test code [address], = 1538) [facility] [address]: Flat Screen Worker/Techni cornelia ID = [id number] for Tiff Roach POCT-GLUCOSE [id number] 07:46:00 Test Item Value Reference Range Interpretation Comments POC-GLUCOSE METER 281 mg/dL 70-110 H : TESTED A T [address] (BEAKER) (test code [address], = 1538) [facility] [address]: Flat Screen Worker/Techni cornelia ID = [id number] for Tiff Roach Hemoglobin [id number] 06:09:00 Test Item Value Reference Range Interpretation Comments Hemoglobin A1C (test code 12.3 % 4.3-6.1 H = 4548-4) ISSA (test code = ISSA) Flat Screen Worker ID - JBERN Lab Interpretation (test Abnormal code = 68324-3) [facility] [id number] 06:09:00 Test Item Value Reference Range Interpretation Comments Hemoglobin A1C (test code 12.3 % 4.3-6.1 H = 4548-4) ISSA (test code = ISSA) Flat Screen Worker ID - JBERN Lab Interpretation (test Abnormal code = 50438-5) [facility] [id number] 06:09:00 Test Item Value Reference Range Interpretation Comments Hemoglobin A1C (test code 12.3 % 4.3-6.1 H = 4548-4) ISSA (test code = ISSA) Flat Screen Worker ID - JBERN Lab Interpretation (test Abnormal code = 66468-1) [facility] [id number] 06:09:00 Test Item Value Reference Range Interpretation Comments Hemoglobin A1C (test code 12.3 % 4.3-6.1 H = 4548-4) ISSA (test code = ISSA) Flat Screen Worker ID - JBERN Lab Interpretation (test Abnormal code = 44350-1) [facility] [id number] 06:09:00 Test Item Value Reference Range Interpretation Comments Hemoglobin A1C (test code 12.3 % 4.3-6.1 H = 4548-4) ISSA (test code = ISSA) Flat Screen Worker ID - JBERN Lab Interpretation (test Abnormal code = 38364-6) [facility] [id number] 06:09:00 Test Item Value Reference Range Interpretation Comments Hemoglobin A1C (test code 12.3 % 4.3-6.1 H = 4548-4) ISSA (test code = ISSA) Flat Screen Worker ID - JBERN Lab Interpretation (test Abnormal code = 54162-5) [facility] [id number] 06:09:00 Test Item Value Reference Range Interpretation Comments Hemoglobin A1C (test code 12.3 % 4.3-6.1 H = 4548-4) ISSA (test code = ISSA) Flat Screen Worker ID - JBERN Lab Interpretation (test Abnormal code = 05762-8) [facility] [id number] 06:09:00 Test Item Value Reference Range Interpretation Comments HEMOGLOBIN A1C (BEAKER) (test code = 12.3 % 4.3-6.1 H 368) Flat Screen Worker ID - JBERNBASIC METABOLIC [id number] 06:04:00 Test Item Value Reference Range Interpretation [...] S NOT APPLICABLE FOR DIALYSIS PATIEN TS. Flat Screen Worker ID - ANSBERTOGOperator ID - ANSBERTOGOperator ID - ANSBERTOGOperator ID - ANSBERTOGOperatorID - ANSBERTOGOperator ID - ANSBERTOGOperator ID - ANSBERTOGOperator ID - ANSBERTOGOperator ID - ANSBERTOGOperator ID - ANSBERTOGOperator ID - ANSBERTOGOperator ID - ANSBERTOGOperator ID - ANSBERTOG CBC W/PLT COUNT & AUTO [id number] 05:38:00 Test Item Value Reference Range Interpretation [...] = 2801) CBC W/PLT COUNT & AUTO [id number] 22:16:00 Test Item Value Reference Range Interpretation [...] PERCENT (BEAKER) (test code = 2801) POCT-GLUCOSE [id number] 22:12:00 Test Item Value Reference Range Interpretation Comments POC-GLUCOSE METER 396 mg/dL 70-110 H : TESTED A T SLSL 1317 (BEAKER) (test code [address], = 1538) [facility] 77 478: Flat Screen Worker/Techni cornelia ID = [id number] for gordon [place] RAD, FOOT, MIN 3 VIEWS, [id number] 21:39:00Reason for exam:->L [facility] ulcer[facility] 1975 Sex: MFINAL [...] MDReport Verified Date/Time: 03/30/2020 21:39:00 BASI METABOLIC [id number] 21:34:00 Test Item Value Reference Range Interpretation [...] S NOT APPLICABLE FOR DIALYSIS PATIEN TS. Flat Screen Worker ID - JBERNOperator ID - JBERNOperator ID - JBERNOperator ID - JBERNOperator ID - JBERNOperator ID - JBERNOperator ID - JBERNOperator ID - JBERNOperator ID - JBERNOperator ID - JBERNOperator ID- JBERNOperator ID - JBERNOperator ID - JBERNSARS-COV2/RT-PCR ([facility])2020-03-30 21:04:00 Test Item Value Reference Range Interpretation Comments SARS-COV2/RT-PCR Negative Not Detected, (test code = 3114580) Negative, See external report for linked test SARS-COV-[address]for med @ [facility] (test code = 2711355) BLOOD [id number] 04:00:00 Test Item Value Reference Range Interpretation Comments CULTURE (BEAKER) (test No growth in 5 days code = 1095) BLOOD [id number] 04:00:00 Test Item Value Reference Range Interpretation Comments CULTURE (BEAKER) (test No growth in 5 days code = 1095) BASIC METABOLIC [id number] 01:36:00 Test Item Value Reference Range Interpretation [...] S NOT APPLICABLE FOR DIALYSIS PATIEN TS. Flat Screen Worker ID - [id number] ID - [id number] ID - [id number] ID - [id number] ID - [id number] ID - [id number] ID - [id number] ID - [id number] ID - [id number] ID - [id number] ID - [id number] ID - [id number] ID - [id number]-Dmecrndz [id number] 01:34:00 Test Item Value Reference Range Interpretation Comments CRP (test code = 676) 0.66 mg/dL 0-0.5 H ISSA (test code = ISSA) Flat Screen Worker ID - [id number] Lab Interpretation (test Abnormal code = 51482-1) [facility] [id number] 01:34:00 Test Item Value Reference Range Interpretation Comments CRP (test code = 676) 0.66 mg/dL 0-0.5 H ISSA (test code = ISSA) Flat Screen Worker ID - [id number] Lab Interpretation (test Abnormal code = 79776-7) [facility] [id number] 01:34:00 Test Item Value Reference Range Interpretation Comments CRP (test code = 676) 0.66 mg/dL 0-0.5 H ISSA (test code = ISSA) Flat Screen Worker ID - [id number] Lab Interpretation (test Abnormal code = 80672-3) [facility] [id number] 01:34:00 Test Item Value Reference Range Interpretation Comments CRP (test code = 676) 0.66 mg/dL 0-0.5 H ISSA (test code = ISSA) Flat Screen Worker ID - [id number] Lab Interpretation (test Abnormal code = 84271-4) [facility] [id number] 01:34:00 Test Item Value Reference Range Interpretation Comments CRP (test code = 676) 0.66 mg/dL 0.00-0.50 H ISSA (test code = ISSA) Flat Screen Worker ID - [id number] Lab Interpretation (test Abnormal code = 95545-5) [facility] [id number] 01:34:00 Test Item Value Reference Range Interpretation Comments CRP (test code = 676) 0.66 mg/dL 0.00-0.50 H ISSA (test code = ISSA) Flat Screen Worker ID - [id number] Lab Interpretation (test Abnormal code = 63965-9) [facility] [id number] 01:34:00 Test Item Value Reference Range Interpretation Comments CRP (test code = 676) 0.66 mg/dL 0.00-0.50 H ISSA (test code = ISSA) Flat Screen Worker ID - [id number] Lab Interpretation (test Abnormal code = 04525-6) [facility] [id number] 01:34:00 Test Item Value Reference Range Interpretation Comments C-REACTIVE PROTEIN (BEAKER) (test 0.66 mg/dL 0.00-0.50 H code = 676) Flat Screen Worker ID - [id number] ACID, [id number] 01:33:00 Test Item Value Reference Range Interpretation Comments LACTATE BLOOD VENOUS (2) (BEAKER) 1.75 mmol/L 0.50-<2.00 (test code = 2872) Flat Screen Worker ID - [id number] ID - [id number] ID - [id number] ID - [id number] CBC W/PLT COUNT & AUTO [id number] 01:21:00 Test Item Value Reference Range Interpretation [...] = 2801) RAD, FOOT, MIN 3 VIEWS, [id number] 00:51:00Reason for exam:->[facility] 1975 Sex: MFINAL REPORT TECHNIQUE: Frontal, oblique, and lateral views of theleft foot. INDICATION: ABSCESS. COMPARISON: None. IMPRESSION:There is soft tissue swelling with superficial skin defect compatible with ulceration along the plantar tissues of the distal midfoot. No osseous erosion. No acute fracture or dislocation. Joint spaces are preserved. Peripheral vascular calcifications are evident. Signed: Jazmin Freeman [facility] Verified Date/Time: 03/20/2020 00:51:45 Panel Description: Hemoglobin A1c/Hemoglobin.total in [id number] 11:40:00 Test Item Value Reference Range Interpretation Comments Hemoglobin A1c (test code 13.1 % 4.8-5.6 H = 4548-4) . Prediabetes: 5. 7 - 6.4 Diabete s: >6.4 Glycemi c control for niall lts with diabetes: <7.0

P erforme d by:
[facility] ([place])

[facility] Description: Hemoglobin A1c/Hemoglobin.total in Blood 2020-03-07 11:40:00 Test Item Value Reference Range Interpretation Comments Hemoglobin A1c (test code 13.1 % 4.8-5.6 H = 4548-4) . Prediabetes: 5. 7 - 6.4 Diabete s: >6.4 Glycemi c control for niall lts with diabetes: <7.0

P erforme d by:
[employer] [facility] ([place])

[facility] Description: Hemoglobin A1c/Hemoglobin.total in Blood 2020-03-07 11:40:00 Test Item Value Reference Range Interpretation Comments Hemoglobin A1c (test code 13.1 % 4.8-5.6 H = 4548-4) . Prediabetes: 5. 7 - 6.4 Diabete s: >6.4 Glycemi c control for niall lts with diabetes: <7.0

P erforme d by:
[employer] [facility] ([place])

[facility] Description: Hemoglobin A1c/Hemoglobin.total in Blood 2020-03-07 11:40:00 Test Item Value Reference Range Interpretation Comments Hemoglobin A1c (test code 13.1 % 4.8-5.6 H = 4548-4) . Prediabetes: 5. 7 - 6.4 Diabete s: >6.4 Glycemi c control for niall lts with diabetes: <7.0

P erforme d by:
[employer] [facility] ([place])

[facility] Description: Hemoglobin A1c/Hemoglobin.total in Blood 2020-03-07 11:40:00 Test Item Value Reference Range Interpretation Comments Hemoglobin A1c (test code 13.1 % 4.8-5.6 H = 4548-4) . Prediabetes: 5. 7 - 6.4 Diabete s: >6.4 Glycemi c control for niall lts with diabetes: <7.0

P erforme d by:
[employer] [facility] ([place]

[facility] Description: Hemoglobin A1c/Hemoglobin.total in Blood 2020-03-07 11:40:00 Test Item Value Reference Range Interpretation Comments Hemoglobin A1c (test code 13.1 % 4.8-5.6 H = 4548-4) . Prediabetes: 5. 7 - 6.4 Diabete s: >6.4 Glycemi c control for niall lts with diabetes: <7.0

P erforme d by:
[employer] [facility] ([place]

[facility] Description: Hemoglobin A1c/Hemoglobin.total in Blood 2020-03-07 11:40:00 Test Item Value Reference Range Interpretation Comments Hemoglobin A1c (test code 13.1 % 4.8-5.6 H = 4548-4) . Prediabetes: 5. 7 - 6.4 Diabete s: >6.4 Glycemi c control for niall lts with diabetes: <7.0

P erforme d by:
[employer] [facility] ([place]

[facility] Description: Hemoglobin A1c/Hemoglobin.total in Blood 2020-03-07 11:40:00 Test Item Value Reference Range Interpretation Comments Hemoglobin A1c (test code 13.1 % 4.8-5.6 H = 4548-4) . Prediabetes: 5. 7 - 6.4 Diabete s: >6.4 Glycemi c control for niall lts with diabetes: <7.0

P erforme d by:
[employer] [facility] ([place]

[facility] Description: Hemoglobin A1c/Hemoglobin.total in Blood 2020-03-07 11:40:00 Test Item Value Reference Range Interpretation Comments Hemoglobin A1c (test code 13.1 % 4.8-5.6 H = 4548-4) . Prediabetes: 5. 7 - 6.4 Diabete s: >6.4 Glycemi c control for niall lts with diabetes: <7.0

P erforme d by:
[employer] [facility] ([place]

[facility] Description: Hemoglobin A1c/Hemoglobin.total in Blood 2020-03-07 11:40:00 Test Item Value Reference Range Interpretation Comments Hemoglobin A1c (test code 13.1 % 4.8-5.6 H = 4548-4) . Prediabetes: 5. 7 - 6.4 Diabete s: >6.4 Glycemi c control for niall lts with diabetes: <7.0

P erforme d by:
[employer] [facility] ([place]

[facility] Description: Hemoglobin A1c/Hemoglobin.total in Blood 2020-03-07 11:40:00 Test Item Value Reference Range Interpretation Comments Hemoglobin A1c (test code 13.1 % 4.8-5.6 H = 4548-4) . Prediabetes: 5. 7 - 6.4 Diabete s: >6.4 Glycemi c control for niall lts with diabetes: <7.0

P erforme d by:
[employer] [facility] ([place]

[facility] Description: Hemoglobin A1c/Hemoglobin.total in Blood 2020-03-07 11:40:00 Test Item Value Reference Range Interpretation Comments Hemoglobin A1c (test code 13.1 % 4.8-5.6 H = 4548-4) . Prediabetes: 5. 7 - 6.4 Diabete s: >6.4 Glycemi c control for niall lts with diabetes: <7.0

P erforme d by:
[employer] [facility] ([place]

[facility] Description: Hemoglobin A1c/Hemoglobin.total in Blood 2020-03-07 11:40:00 Test Item Value Reference Range Interpretation Comments Hemoglobin A1c (test code 13.1 % 4.8-5.6 H = 4548-4) . Prediabetes: 5. 7 - 6.4 Diabete s: >6.4 Glycemi c control for niall lts with diabetes: <7.0

P erforme d by:
[employer] [facility] ([place]

[facility] Description: Hemoglobin A1c/Hemoglobin.total in Blood 2020-03-07 11:40:00 Test Item Value Reference Range Interpretation Comments Hemoglobin A1c (test code 13.1 % 4.8-5.6 H = 4548-4) . Prediabetes: 5. 7 - 6.4 Diabete s: >6.4 Glycemi c control for niall lts with diabetes: <7.0

P erforme d by:
[employer] [facility] ([place]

[facility] Description: Hemoglobin A1c/Hemoglobin.total in Blood 2020-03-07 11:40:00 Test Item Value Reference Range Interpretation Comments Hemoglobin A1c (test code 13.1 % 4.8-5.6 H = 4548-4) . Prediabetes: 5. 7 - 6.4 Diabete s: >6.4 Glycemi c control for niall lts with diabetes: <7.0

P erforme d by:
[employer] [facility] ([place]

[facility] Description: Hemoglobin A1c/Hemoglobin.total in Blood 2020-03-07 11:40:00 Test Item Value Reference Range Interpretation Comments Hemoglobin A1c (test code 13.1 % 4.8-5.6 H = 4548-4) . Prediabetes: 5. 7 - 6.4 Diabete s: >6.4 Glycemi c control for niall lts with diabetes: <7.0

P erforme d by:
[employer] [facility] ([place]

[facility] Description: Hemoglobin A1c/Hemoglobin.total in Blood 2020-03-07 11:40:00 Test Item Value Reference Range Interpretation Comments Hemoglobin A1c (test code 13.1 % 4.8-5.6 H = 4548-4) . Prediabetes: 5. 7 - 6.4 Diabete s: >6.4 Glycemi c control for niall lts with diabetes: <7.0

P erforme d by:
[employer] [facility] ([place]

[facility] Description: Hemoglobin A1c/Hemoglobin.total in Blood 2020-03-07 11:40:00 Test Item Value Reference Range Interpretation Comments Hemoglobin A1c (test code 13.1 % 4.8-5.6 H = 4548-4) . Prediabetes: 5. 7 - 6.4 Diabete s: >6.4 Glycemi c control for niall lts with diabetes: <7.0

P erforme d by:
[employer] [facility] ([place]

[facility] Description: Hemoglobin A1c/Hemoglobin.total in Blood 2020-03-07 11:40:00 Test Item Value Reference Range Interpretation Comments Hemoglobin A1c (test code 13.1 % 4.8-5.6 H = 4548-4) . Prediabetes: 5. 7 - 6.4 Diabete s: >6.4 Glycemi c control for niall lts with diabetes: <7.0

P erforme d by:
[employer] [facility] ([place]

[facility] Description: Hemoglobin A1c/Hemoglobin.total in Blood 2020-03-07 11:40:00 Test Item Value Reference Range Interpretation Comments Hemoglobin A1c (test code 13.1 % 4.8-5.6 H = 4548-4) . Prediabetes: 5. 7 - 6.4 Diabete s: >6.4 Glycemi c control for niall lts with diabetes: <7.0

P erforme d by:
[employer] [facility] ([place]

[facility] Description: Hemoglobin A1c/Hemoglobin.total in Blood 2020-03-07 11:40:00 Test Item Value Reference Range Interpretation Comments Hemoglobin A1c (test code 13.1 % 4.8-5.6 H = 4548-4) . Prediabetes: 5. 7 - 6.4 Diabete s: >6.4 Glycemi c control for niall lts with diabetes: <7.0

P erforme d by:
[employer] [facility] ([place]

[facility] Description: Hemoglobin A1c/Hemoglobin.total in Blood 2020-03-07 11:40:00 Test Item Value Reference Range Interpretation Comments Hemoglobin A1c (test code 13.1 % 4.8-5.6 H = 4548-4) . Prediabetes: 5. 7 - 6.4 Diabete s: >6.4 Glycemi c control for niall lts with diabetes: <7.0

P erforme d by:
[employer] [facility] ([place]

[facility] Description: Hemoglobin A1c/Hemoglobin.total in Blood 2020-03-07 11:40:00 Test Item Value Reference Range Interpretation Comments Hemoglobin A1c (test code 13.1 % 4.8-5.6 H = 4548-4) . Prediabetes: 5. 7 - 6.4 Diabete s: >6.4 Glycemi c control for niall lts with diabetes: <7.0

P erforme d by:
[employer] [facility] ([place]

[facility] Description: Hemoglobin A1c/Hemoglobin.total in Blood 2020-03-07 11:40:00 Test Item Value Reference Range Interpretation Comments Hemoglobin A1c (test code 13.1 % 4.8-5.6 H = 4548-4) . Prediabetes: 5. 7 - 6.4 Diabete s: >6.4 Glycemi c control for niall lts with diabetes: <7.0

P erforme d by:
[employer] [facility] ([place]

[facility] Description: Hemoglobin A1c/Hemoglobin.total in Blood 2020-03-07 11:40:00 Test Item Value Reference Range Interpretation Comments Hemoglobin A1c (test code 13.1 % 4.8-5.6 H = 4548-4) . Prediabetes: 5. 7 - 6.4 Diabete s: >6.4 Glycemi c control for niall lts with diabetes: <7.0

P erforme d by:
[employer] [facility] ([place]

[facility] Description: Hemoglobin A1c/Hemoglobin.total in Blood 2020-03-07 11:40:00 Test Item Value Reference Range Interpretation Comments Hemoglobin A1c (test code 13.1 % 4.8-5.6 H = 4548-4) . Prediabetes: 5. 7 - 6.4 Diabete s: >6.4 Glycemi c control for niall lts with diabetes: <7.0

P erforme d by:
[facility] ([place])

[facility] Description: Hemoglobin A1c/Hemoglobin.total in Blood 2020-03-07 11:40:00 Test Item Value Reference Range Interpretation Comments Hemoglobin A1c (test code 13.1 % 4.8-5.6 H = 4548-4) . Prediabetes: 5. 7 - 6.4 Diabete s: >6.4 Glycemi c control for niall lts with diabetes: <7.0

P erforme d by:
[facility] ([place]

[facility] Description: Hemoglobin A1c/Hemoglobin.total in Blood 2020-03-07 11:40:00 Test Item Value Reference Range Interpretation Comments Hemoglobin A1c (test code 13.1 % 4.8-5.6 H = 4548-4) . Prediabetes: 5. 7 - 6.4 Diabete s: >6.4 Glycemi c control for niall lts with diabetes: <7.0

P erforme d by:
[facility] ([place]

[facility] Description: Lipid [id number] 08:03:00 Test Item Value Reference Range Interpretation Comments Cholesterol, Total (test code = 209 mg/dL 100-199 H 3-3) Triglycerides (test code = 2571-8) 172 mg/dL 0-149 H HDL Cholesterol (test code = 29 mg/dL >39 L 5-9) VLDL Cholesterol Renuka (test code = 32 mg/dL 5-40 19837-8) LDL Chol Calc (NIH) (test code = 148 mg/dL 0-99 H 32764-7) Comment: (test code = 94613-6) [facility] Description: Lipid [id number] 08:03:00 Test Item Value Reference Range Interpretation Comments Cholesterol, Total (test code = 209 mg/dL 100-199 H 2093-3) Triglycerides (test code = 2571-8) 172 mg/dL 0-149 H HDL Cholesterol (test code = 29 mg/dL >39 L 2085-9) VLDL Cholesterol Renuka (test code = 32 mg/dL 5-40 00106-9) LDL Chol Calc (NIH) (test code = 148 mg/dL 0-99 H 72250-0) Comment: (test code = 83964-6) [employer] Description: Lipid [id number] 08:03:00 Test Item Value Reference Range Interpretation Comments Cholesterol, Total (test code = 209 mg/dL 100-199 H 2093-3) Triglycerides (test code = 2571-8) 172 mg/dL 0-149 H HDL Cholesterol (test code = 29 mg/dL >39 L 2085-9) VLDL Cholesterol Renuka (test code = 32 mg/dL 5-40 64250-5) LDL Chol Calc (NIH) (test code = 148 mg/dL 0-99 H 23467-5) Comment: (test code = 89668-0) [employer] Description: Lipid [id number] 08:03:00 Test Item Value Reference Range Interpretation Comments Cholesterol, Total (test code = 209 mg/dL 100-199 H 2093-3) Triglycerides (test code = 2571-8) 172 mg/dL 0-149 H HDL Cholesterol (test code = 29 mg/dL >39 L 2085-9) VLDL Cholesterol Renuka (test code = 32 mg/dL 5-40 21553-8) LDL Chol Calc (NIH) (test code = 148 mg/dL 0-99 H 90040-7) Comment: (test code = 23898-4) [employer] Description: Lipid [id number] 08:03:00 Test Item Value Reference Range Interpretation Comments Cholesterol, Total (test code = 209 mg/dL 100-199 H 2093-3) Triglycerides (test code = 2571-8) 172 mg/dL 0-149 H HDL Cholesterol (test code = 29 mg/dL >39 L 2085-9) VLDL Cholesterol Renuka (test code = 32 mg/dL 5-40 92475-8) LDL Chol Calc (NIH) (test code = 148 mg/dL 0-99 H 70385-2) Comment: (test code = 97247-7) [employer] Description: Lipid [id number] 08:03:00 Test Item Value Reference Range Interpretation Comments Cholesterol, Total (test code = 209 mg/dL 100-199 H 2093-3) Triglycerides (test code = 2571-8) 172 mg/dL 0-149 H HDL Cholesterol (test code = 29 mg/dL >39 L 2085-9) VLDL Cholesterol Renuka (test code = 32 mg/dL 5-40 93919-6) LDL Chol Calc (NIH) (test code = 148 mg/dL 0-99 H 76835-5) Comment: (test code = 52343-5) [employer] [facility] Description: Lipid [id number] 08:03:00 Test Item Value Reference Range Interpretation Comments Cholesterol, Total (test code = 209 mg/dL 100-199 H 2093-3) Triglycerides (test code = 2571-8) 172 mg/dL 0-149 H HDL Cholesterol (test code = 29 mg/dL >39 L 5-9) VLDL Cholesterol Renuka (test code = 32 mg/dL 5-40 04222-7) LDL Chol Calc (NIH) (test code = 148 mg/dL 0-99 H 62015-9) Comment: (test code = 85385-9) [employer] Description: Lipid [id number] 08:03:00 Test Item Value Reference Range Interpretation Comments Cholesterol, Total (test code = 209 mg/dL 100-199 H 2093-3) Triglycerides (test code = 2571-8) 172 mg/dL 0-149 H HDL Cholesterol (test code = 29 mg/dL >39 L 5-9) VLDL Cholesterol Renuka (test code = 32 mg/dL 5-40 06542-5) LDL Chol Calc (NIH) (test code = 148 mg/dL 0-99 H 02212-8) Comment: (test code = 04833-9) [employer] Description: Lipid [id number] 08:03:00 Test Item Value Reference Range Interpretation Comments Cholesterol, Total (test code = 209 mg/dL 100-199 H 2093-3) Triglycerides (test code = 2571-8) 172 mg/dL 0-149 H HDL Cholesterol (test code = 29 mg/dL >39 L 5-9) VLDL Cholesterol Renuka (test code = 32 mg/dL 5-40 27839-9) LDL Chol Calc (NIH) (test code = 148 mg/dL 0-99 H 07568-6) Comment: (test code = 29441-3) [employer] Description: Lipid [id number] 08:03:00 Test Item Value Reference Range Interpretation Comments Cholesterol, Total (test code = 209 mg/dL 100-199 H 2093-3) Triglycerides (test code = 2571-8) 172 mg/dL 0-149 H HDL Cholesterol (test code = 29 mg/dL >39 L 5-9) VLDL Cholesterol Renuka (test code = 32 mg/dL 5-40 70726-5) LDL Chol Calc (NIH) (test code = 148 mg/dL 0-99 H 21099-1) Comment: (test code = 45276-1) [employer] Description: Lipid [id number] 08:03:00 Test Item Value Reference Range Interpretation Comments Cholesterol, Total (test code = 209 mg/dL 100-199 H 3-3) Triglycerides (test code = 2571-8) 172 mg/dL 0-149 H HDL Cholesterol (test code = 29 mg/dL >39 L 5-9) VLDL Cholesterol Renuka (test code = 32 mg/dL 5-40 23014-2) LDL Chol Calc (NIH) (test code = 148 mg/dL 0-99 H 67592-7) Comment: (test code = 58326-3) [employer] Description: Lipid [id number] 08:03:00 Test Item Value Reference Range Interpretation Comments Cholesterol, Total (test code = 209 mg/dL 100-199 H 3-3) Triglycerides (test code = 2571-8) 172 mg/dL 0-149 H HDL Cholesterol (test code = 29 mg/dL >39 L 2085-9) VLDL Cholesterol Renuka (test code = 32 mg/dL 5-40 77385-7) LDL Chol Calc (NIH) (test code = 148 mg/dL 0-99 H 32914-8) Comment: (test code = 88789-6) [employer] Description: Lipid [id number] 08:03:00 Test Item Value Reference Range Interpretation Comments Cholesterol, Total (test code = 209 mg/dL 100-199 H 2093-3) Triglycerides (test code = 2571-8) 172 mg/dL 0-149 H HDL Cholesterol (test code = 29 mg/dL >39 L 2085-9) VLDL Cholesterol Renuka (test code = 32 mg/dL 5-40 44976-5) LDL Chol Calc (NIH) (test code = 148 mg/dL 0-99 H 57459-8) Comment: (test code = 30156-0) [employer] Description: Lipid [id number] 08:03:00 Test Item Value Reference Range Interpretation Comments Cholesterol, Total (test code = 209 mg/dL 100-199 H 2093-3) Triglycerides (test code = 2571-8) 172 mg/dL 0-149 H HDL Cholesterol (test code = 29 mg/dL >39 L 2085-9) VLDL Cholesterol Renuka (test code = 32 mg/dL 5-40 32629-9) LDL Chol Calc (NIH) (test code = 148 mg/dL 0-99 H 98373-1) Comment: (test code = 80430-0) [employer] Description: Lipid [id number] 08:03:00 Test Item Value Reference Range Interpretation Comments Cholesterol, Total (test code = 209 mg/dL 100-199 H 2093-3) Triglycerides (test code = 2571-8) 172 mg/dL 0-149 H HDL Cholesterol (test code = 29 mg/dL >39 L 2085-9) VLDL Cholesterol Renuka (test code = 32 mg/dL 5-40 43708-1) LDL Chol Calc (NIH) (test code = 148 mg/dL 0-99 H 20015-8) Comment: (test code = 43232-2) [employer] Description: Lipid [id number] 08:03:00 Test Item Value Reference Range Interpretation Comments Cholesterol, Total (test code = 209 mg/dL 100-199 H 2093-3) Triglycerides (test code = 2571-8) 172 mg/dL 0-149 H HDL Cholesterol (test code = 29 mg/dL >39 L 2085-9) VLDL Cholesterol Renuka (test code = 32 mg/dL 5-40 32240-6) LDL Chol Calc (NIH) (test code = 148 mg/dL 0-99 H 08043-2) Comment: (test code = 94556-4) [employer] Description: Lipid [id number] 08:03:00 Test Item Value Reference Range Interpretation Comments Cholesterol, Total (test code = 209 mg/dL 100-199 H 2093-3) Triglycerides (test code = 2571-8) 172 mg/dL 0-149 H HDL Cholesterol (test code = 29 mg/dL >39 L 5-9) VLDL Cholesterol Renuka (test code = 32 mg/dL 5-40 16632-9) LDL Chol Calc (NIH) (test code = 148 mg/dL 0-99 H 94077-3) Comment: (test code = 53939-5) [employer] Description: Lipid [id number] 08:03:00 Test Item Value Reference Range Interpretation Comments Cholesterol, Total (test code = 209 mg/dL 100-199 H 2093-3) Triglycerides (test code = 2571-8) 172 mg/dL 0-149 H HDL Cholesterol (test code = 29 mg/dL >39 L 5-9) VLDL Cholesterol Renuka (test code = 32 mg/dL 5-40 99611-4) LDL Chol Calc (NIH) (test code = 148 mg/dL 0-99 H 31733-3) Comment: (test code = 12076-0) [employer] Description: Lipid [id number] 08:03:00 Test Item Value Reference Range Interpretation Comments Cholesterol, Total (test code = 209 mg/dL 100-199 H 2093-3) Triglycerides (test code = 2571-8) 172 mg/dL 0-149 H HDL Cholesterol (test code = 29 mg/dL >39 L 5-9) VLDL Cholesterol Renuka (test code = 32 mg/dL 5-40 27590-9) LDL Chol Calc (NIH) (test code = 148 mg/dL 0-99 H 54712-1) Comment: (test code = 90227-0) [employer] Description: Lipid [id number] 08:03:00 Test Item Value Reference Range Interpretation Comments Cholesterol, Total (test code = 209 mg/dL 100-199 H 2093-3) Triglycerides (test code = 2571-8) 172 mg/dL 0-149 H HDL Cholesterol (test code = 29 mg/dL >39 L 5-9) VLDL Cholesterol Renuka (test code = 32 mg/dL 5-40 46491-5) LDL Chol Calc (NIH) (test code = 148 mg/dL 0-99 H 18888-1) Comment: (test code = 81901-2) [employer] Description: Lipid [id number] 08:03:00 Test Item Value Reference Range Interpretation Comments Cholesterol, Total (test code = 209 mg/dL 100-199 H 3-3) Triglycerides (test code = 2571-8) 172 mg/dL 0-149 H HDL Cholesterol (test code = 29 mg/dL >39 L 5-9) VLDL Cholesterol Renuka (test code = 32 mg/dL 5-40 46920-1) LDL Chol Calc (NIH) (test code = 148 mg/dL 0-99 H 35558-5) Comment: (test code = 95146-3) [employer] Description: Lipid [id number] 08:03:00 Test Item Value Reference Range Interpretation Comments Cholesterol, Total (test code = 209 mg/dL 100-199 H 3-3) Triglycerides (test code = 2571-8) 172 mg/dL 0-149 H HDL Cholesterol (test code = 29 mg/dL >39 L 2084-9) VLDL Cholesterol Renuka (test code = 32 mg/dL 5-40 73123-3) LDL Chol Calc (NIH) (test code = 148 mg/dL 0-99 H 71205-2) Comment: (test code = 57254-2) [employer] Description: Lipid [id number] 08:03:00 Test Item Value Reference Range Interpretation Comments Cholesterol, Total (test code = 209 mg/dL 100-199 H 3-3) Triglycerides (test code = 2571-8) 172 mg/dL 0-149 H HDL Cholesterol (test code = 29 mg/dL >39 L 5-9) VLDL Cholesterol Renuka (test code = 32 mg/dL 5-40 75118-5) LDL Chol Calc (NIH) (test code = 148 mg/dL 0-99 H 88673-4) Comment: (test code = 17348-8) [employer] Description: Lipid [id number] 08:03:00 Test Item Value Reference Range Interpretation Comments Cholesterol, Total (test code = 209 mg/dL 100-199 H 2093-3) Triglycerides (test code = 2571-8) 172 mg/dL 0-149 H HDL Cholesterol (test code = 29 mg/dL >39 L 2085-9) VLDL Cholesterol Renuka (test code = 32 mg/dL 5-40 14585-2) LDL Chol Calc (NIH) (test code = 148 mg/dL 0-99 H 19083-9) Comment: (test code = 98338-2) [employer] Description: Lipid [id number] 08:03:00 Test Item Value Reference Range Interpretation Comments Cholesterol, Total (test code = 209 mg/dL 100-199 H 2093-3) Triglycerides (test code = 2571-8) 172 mg/dL 0-149 H HDL Cholesterol (test code = 29 mg/dL >39 L 2085-9) VLDL Cholesterol Renuka (test code = 32 mg/dL 5-40 41269-1) LDL Chol Calc (NIH) (test code = 148 mg/dL 0-99 H 19962-6) Comment: (test code = 34026-7) [employer] Description: Lipid [id number] 08:03:00 Test Item Value Reference Range Interpretation Comments Cholesterol, Total (test code = 209 mg/dL 100-199 H 2093-3) Triglycerides (test code = 2571-8) 172 mg/dL 0-149 H HDL Cholesterol (test code = 29 mg/dL >39 L 2085-9) VLDL Cholesterol Renuka (test code = 32 mg/dL 5-40 79411-1) LDL Chol Calc (NIH) (test code = 148 mg/dL 0-99 H 30994-2) Comment: (test code = 48951-0) [employer] Description: Lipid [id number] 08:03:00 Test Item Value Reference Range Interpretation Comments Cholesterol, Total (test code = 209 mg/dL 100-199 H 2093-3) Triglycerides (test code = 2571-8) 172 mg/dL 0-149 H HDL Cholesterol (test code = 29 mg/dL >39 L 2085-9) VLDL Cholesterol Renuka (test code = 32 mg/dL 5-40 80456-4) LDL Chol Calc (NIH) (test code = 148 mg/dL 0-99 H 17838-5) Comment: (test code = 48897-2) [employer] Description: Lipid [id number] 08:03:00 Test Item Value Reference Range Interpretation Comments Cholesterol, Total (test code = 209 mg/dL 100-199 H 2093-3) Triglycerides (test code = 2571-8) 172 mg/dL 0-149 H HDL Cholesterol (test code = 29 mg/dL >39 L 2085-9) VLDL Cholesterol Renuka (test code = 32 mg/dL 5-40 21206-0) LDL Chol Calc (NIH) (test code = 148 mg/dL 0-99 H 82303-1) Comment: (test code = 90632-6) [employer] Description: Comp. Metabolic Panel (14)2020-03-07 06:49:00 Test Item Value Reference Range Interpretation Comments Glucose (test code = 2345-7) 441 mg/dL 65-99 H BUN (test code = 3094-0) 52 mg/dL 6-24 H Creatinine (test code = 2.05 mg/dL 0.76-1.27 H 2160-0) eGFR If NonAfricn Am (test 38 mL/min/1.73 >59 L code = 47424-7) eGFR If Africn Am (test code = 44 mL/min/1.73 >59 L 41096-6) BUN/Creatinine Ratio (test 25 9-20 H code = 3097-3) Sodium (test code = 2951-2) 138 mmol/L 134-144 Potassium (test code = 2823-3) 5.4 mmol/L 3.5-5.2 H Chloride (test code = 2075-0) 96 mmol/L 96-106 Carbon Dioxide, Total (test 29 mmol/L 20-29 code = 8-9) Calcium (test code = 54452-7) 9.2 mg/dL 8.7-10.2 Protein, Total (test code = 6.2 g/dL 6.0-8.5 2885-2) Albumin (test code = 1751-7) 3.4 g/dL 4.0-5.0 L Globulin, Total (test code = 2.8 g/dL 1.5-4.5 72206-1) A/G Ratio (test code = 1759-0) 1.2 [...] (test 38 mL/min/1.73 >59 L code = 31015-1) eGFR If Africn Am (test code = 44 mL/min/1.73 >59 L 83529-8) BUN/Creatinine Ratio (test 25 9-20 H code = 3097-3) Sodium (test code = 2951-2) 138 mmol/L 134-144 Potassium (test code = 2823-3) 5.4 mmol/L 3.5-5.2 H Chloride (test code = 2075-0) 96 mmol/L 96-106 Carbon Dioxide, Total (test 29 mmol/L 20-29 code = 2027-9) Calcium (test code = 21807-9) 9.2 mg/dL 8.7-10.2 Protein, Total (test code = 6.2 g/dL 6.0-8.5 2885-2) Albumin (test code = 1751-7) 3.4 g/dL 4.0-5.0 L Globulin, Total (test code = 2.8 g/dL 1.5-4.5 03300-8) A/G Ratio (test code = 1759-0) 1.2 1.2-2.2 Bilirubin, Total (test code = 0.5 mg/dL 0.0-1.2 1974-2) Alkaline Phosphatase (test 112 IU/L 39-117 code = 6768-6) AST (SGOT) (test code = 21 IU/L 0-40 1920-8) ALT (SGPT) (test code = 31 IU/L 0-44 1742-6) [facility] (142020-03-07 06:49:00 Test Item Value Reference Range Interpretation Comments Glucose (test code = 2345-7) 441 mg/dL 65-99 H BUN (test code = 3094-0) 52 mg/dL 6-24 H Creatinine (test code = 2.05 mg/dL 0.76-1.27 H 2160-0) eGFR If NonAfricn Am (test 38 mL/min/1.73 >59 L code = 80509-2) eGFR If Africn Am (test code = 44 mL/min/1.73 >59 L 46253-9) BUN/Creatinine Ratio (test 25 9-20 H code = 3097-3) Sodium (test code = 2951-2) 138 mmol/L 134-144 Potassium (test code = 2823-3) 5.4 mmol/L 3.5-5.2 H Chloride (test code = 2075-0) 96 mmol/L 96-106 Carbon Dioxide, Total (test 29 mmol/L 20-29 code = 2027-9) Calcium (test code = 19262-3) 9.2 mg/dL 8.7-10.2 Protein, Total (test code = 6.2 g/dL 6.0-8.5 2885-2) Albumin (test code = 1751-7) 3.4 g/dL 4.0-5.0 L Globulin, Total (test code = 2.8 g/dL 1.5-4.5 82400-7) A/G Ratio (test code = 1759-0) 1.2 [...] (test 38 mL/min/1.73 >59 L code = 33543-8) eGFR If Africn Am (test code = 44 mL/min/1.73 >59 L 87696-1) BUN/Creatinine Ratio (test 25 9-20 H code = 3097-3) Sodium (test code = 2951-2) 138 mmol/L 134-144 Potassium (test code = 2823-3) 5.4 mmol/L 3.5-5.2 H Chloride (test code = 2075-0) 96 mmol/L 96-106 Carbon Dioxide, Total (test 29 mmol/L 20-29 code = 2027-9) Calcium (test code = 24806-6) 9.2 mg/dL 8.7-10.2 Protein, Total (test code = 6.2 g/dL 6.0-8.5 2885-2) Albumin (test code = 1751-7) 3.4 g/dL 4.0-5.0 L Globulin, Total (test code = 2.8 g/dL 1.5-4.5 67547-5) A/G Ratio (test code = 1759-0) 1.2 1.2-2.2 Bilirubin, Total (test code = 0.5 mg/dL 0.0-1.2 1975-2) Alkaline Phosphatase (test 112 IU/L 39-117 code = 6768-6) AST (SGOT) (test code = 21 IU/L 0-40 1920-8) ALT (SGPT) (test code = 31 IU/L 0-44 2-6) [facility] Description: Comp. Metabolic Panel (14)2020-03-07 06:49:00 Test Item Value Reference Range Interpretation Comments Glucose (test code = 2345-7) 441 mg/dL 65-99 H BUN (test code = 3094-0) 52 mg/dL 6-24 H Creatinine (test code = 2.05 mg/dL 0.76-1.27 H 2160-0) eGFR If NonAfricn Am (test 38 mL/min/1.73 >59 L code = 05695-0) eGFR If Africn Am (test code = 44 mL/min/1.73 >59 L 92491-8) BUN/Creatinine Ratio (test 25 9-20 H code = 3097-3) Sodium (test code = 2951-2) 138 mmol/L 134-144 Potassium (test code = 2823-3) 5.4 mmol/L 3.5-5.2 H Chloride (test code = 2075-0) 96 mmol/L 96-106 Carbon Dioxide, Total (test 29 mmol/L 20-29 code = 8-9) Calcium (test code = 29379-9) 9.2 mg/dL 8.7-10.2 Protein, Total (test code = 6.2 g/dL 6.0-8.5 2885-2) Albumin (test code = 1751-7) 3.4 g/dL 4.0-5.0 L Globulin, Total (test code = 2.8 g/dL 1.5-4.5 42749-4) A/G Ratio (test code = 1759-0) 1.2 [...] (test 38 mL/min/1.73 >59 L code = 43018-5) eGFR If Africn Am (test code = 44 mL/min/1.73 >59 L 21772-8) BUN/Creatinine Ratio (test 25 9-20 H code = 3097-3) Sodium (test code = 2951-2) 138 mmol/L 134-144 Potassium (test code = 2823-3) 5.4 mmol/L 3.5-5.2 H Chloride (test code = 2075-0) 96 mmol/L 96-106 Carbon Dioxide, Total (test 29 mmol/L 20-29 code = 2028-9) Calcium (test code = 98518-2) 9.2 mg/dL 8.7-10.2 Protein, Total (test code = 6.2 g/dL 6.0-8.5 2885-2) Albumin (test code = 1751-7) 3.4 g/dL 4.0-5.0 L Globulin, Total (test code = 2.8 g/dL 1.5-4.5 33513-5) A/G Ratio (test code = 1759-0) 1.2 [...] (test 38 mL/min/1.73 >59 L code = 17098-1) eGFR If Africn Am (test code = 44 mL/min/1.73 >59 L 88898-9) BUN/Creatinine Ratio (test 25 9-20 H code = 3097-3) Sodium (test code = 2951-2) 138 mmol/L 134-144 Potassium (test code = 2823-3) 5.4 mmol/L 3.5-5.2 H Chloride (test code = 2075-0) 96 mmol/L 96-106 Carbon Dioxide, Total (test 29 mmol/L -29 code = 2027-9) Calcium (test code = 87355-9) 9.2 mg/dL 8.7-10.2 Protein, Total (test code = 6.2 g/dL 6.0-8.5 2885-2) Albumin (test code = 1751-7) 3.4 g/dL 4.0-5.0 L Globulin, Total (test code = 2.8 g/dL 1.5-4.5 07406-4) A/G Ratio (test code = 1759-0) 1.2 [...] (test 38 mL/min/1.73 >59 L code = 04507-7) eGFR If Africn Am (test code = 44 mL/min/1.73 >59 L 55329-0) BUN/Creatinine Ratio (test 25 9-20 H code = 3097-3) Sodium (test code = 2951-2) 138 mmol/L 134-144 Potassium (test code = 2823-3) 5.4 mmol/L 3.5-5.2 H Chloride (test code = 2075-0) 96 mmol/L 96-106 Carbon Dioxide, Total (test 29 mmol/L -29 code = 2027-) Calcium (test code = 88508-5) 9.2 mg/dL 8.7-10.2 Protein, Total (test code = 6.2 g/dL 6.0-8.5 2885-2) Albumin (test code = 1751-7) 3.4 g/dL 4.0-5.0 L Globulin, Total (test code = 2.8 g/dL 1.5-4.5 84125-8) A/G Ratio (test code = 1759-0) 1.2 [...] (test 38 mL/min/1.73 >59 L code = 87647-1) eGFR If Africn Am (test code = 44 mL/min/1.73 >59 L 03191-2) BUN/Creatinine Ratio (test 25 9-20 H code = 3097-3) Sodium (test code = 2951-2) 138 mmol/L 134-144 Potassium (test code = 2823-3) 5.4 mmol/L 3.5-5.2 H Chloride (test code = 2075-0) 96 mmol/L 96-106 Carbon Dioxide, Total (test 29 mmol/L -29 code = 2027-9) Calcium (test code = 35662-0) 9.2 mg/dL 8.7-10.2 Protein, Total (test code = 6.2 g/dL 6.0-8.5 2885-2) Albumin (test code = 1751-7) 3.4 g/dL 4.0-5.0 L Globulin, Total (test code = 2.8 g/dL 1.5-4.5 46130-4) A/G Ratio (test code = 1759-0) 1.2 [...] (test 38 mL/min/1.73 >59 L code = 54956-4) eGFR If Africn Am (test code = 44 mL/min/1.73 >59 L 31878-3) BUN/Creatinine Ratio (test 25 9-20 H code = 3097-3) Sodium (test code = 2951-2) 138 mmol/L 134-144 Potassium (test code = 2823-3) 5.4 mmol/L 3.5-5.2 H Chloride (test code = 2075-0) 96 mmol/L 96-106 Carbon Dioxide, Total (test 29 mmol/L 20-29 code = 8-9) Calcium (test code = 17383-7) 9.2 mg/dL 8.7-10.2 Protein, Total (test code = 6.2 g/dL 6.0-8.5 2885-2) Albumin (test code = 1751-7) 3.4 g/dL 4.0-5.0 L Globulin, Total (test code = 2.8 g/dL 1.5-4.5 27380-1) A/G Ratio (test code = 1759-0) 1.2 [...] (test 38 mL/min/1.73 >59 L code = 50609-0) eGFR If Africn Am (test code = 44 mL/min/1.73 >59 L 61844-8) BUN/Creatinine Ratio (test 25 9-20 H code = 3097-3) Sodium (test code = 2951-2) 138 mmol/L 134-144 Potassium (test code = 2823-3) 5.4 mmol/L 3.5-5.2 H Chloride (test code = 2075-0) 96 mmol/L 96-106 Carbon Dioxide, Total (test 29 mmol/L 20-29 code = 8-9) Calcium (test code = 38288-8) 9.2 mg/dL 8.7-10.2 Protein, Total (test code = 6.2 g/dL 6.0-8.5 2885-2) Albumin (test code = 1751-7) 3.4 g/dL 4.0-5.0 L Globulin, Total (test code = 2.8 g/dL 1.5-4.5 10682-4) A/G Ratio (test code = 1759-0) 1.2 1.2-2.2 Bilirubin, Total (test code = 0.5 mg/dL 0.0-1.2 1974-2) Alkaline Phosphatase (test 112 IU/L 39-117 code = 6768-6) AST (SGOT) (test code = 21 IU/L 0-40 1920-8) ALT (SGPT) (test code = 31 IU/L 0-44 1742-6) [facility] Description: Comp. Metabolic Panel (14)2020-03-07 06:49:00 Test Item Value Reference Range Interpretation Comments Glucose (test code = 2345-7) 441 mg/dL 65-99 H BUN (test code = 3094-0) 52 mg/dL 6-24 H Creatinine (test code = 2.05 mg/dL 0.76-1.27 H 2160-0) eGFR If NonAfricn Am (test 38 mL/min/1.73 >59 L code = 95176-7) eGFR If Africn Am (test code = 44 mL/min/1.73 >59 L 81817-5) BUN/Creatinine Ratio (test 25 9-20 H code = 3097-3) Sodium (test code = 2951-2) 138 mmol/L 134-144 Potassium (test code = 2823-3) 5.4 mmol/L 3.5-5.2 H Chloride (test code = 2075-0) 96 mmol/L 96-106 Carbon Dioxide, Total (test 29 mmol/L 20-29 code = 8-9) Calcium (test code = 33904-0) 9.2 mg/dL 8.7-10.2 Protein, Total (test code = 6.2 g/dL 6.0-8.5 2885-2) Albumin (test code = 1751-7) 3.4 g/dL 4.0-5.0 L Globulin, Total (test code = 2.8 g/dL 1.5-4.5 28692-0) A/G Ratio (test code = 1759-0) 1.2 1.2-2.2 Bilirubin, Total (test code = 0.5 mg/dL 0.0-1.2 1975-2) Alkaline Phosphatase (test 112 IU/L 39-117 code = 6768-6) AST (SGOT) (test code = 21 IU/L 0-40 1920-8) ALT (SGPT) (test code = 31 IU/L 0-44 1742-6) [facility] (14)2020-03-07 06:49:00 Test Item Value Reference Range Interpretation Comments Glucose (test code = 2345-7) 441 mg/dL 65-99 H BUN (test code = 3094-0) 52 mg/dL 6-24 H Creatinine (test code = 2.05 mg/dL 0.76-1.27 H 2160-0) eGFR If NonAfricn Am (test 38 mL/min/1.73 >59 L code = 82556-5) eGFR If Africn Am (test code = 44 mL/min/1.73 >59 L 75854-7) BUN/Creatinine Ratio (test 25 9-20 H code = 3097-3) Sodium (test code = 2951-2) 138 mmol/L 134-144 Potassium (test code = 2823-3) 5.4 mmol/L 3.5-5.2 H Chloride (test code = 2075-0) 96 mmol/L 96-106 Carbon Dioxide, Total (test 29 mmol/L 20-29 code = 8-9) Calcium (test code = 67880-9) 9.2 mg/dL 8.7-10.2 Protein, Total (test code = 6.2 g/dL 6.0-8.5 2885-2) Albumin (test code = 1751-7) 3.4 g/dL 4.0-5.0 L Globulin, Total (test code = 2.8 g/dL 1.5-4.5 38212-1) A/G Ratio (test code = 1759-0) 1.2 [...] (test 38 mL/min/1.73 >59 L code = 91901-2) eGFR If Africn Am (test code = 44 mL/min/1.73 >59 L 87813-8) BUN/Creatinine Ratio (test 25 9-20 H code = 3097-3) Sodium (test code = 2951-2) 138 mmol/L 134-144 Potassium (test code = 2823-3) 5.4 mmol/L 3.5-5.2 H Chloride (test code = 2075-0) 96 mmol/L 96-106 Carbon Dioxide, Total (test 29 mmol/L 20-29 code = 8-9) Calcium (test code = 48256-6) 9.2 mg/dL 8.7-10.2 Protein, Total (test code = 6.2 g/dL 6.0-8.5 2885-2) Albumin (test code = 1751-7) 3.4 g/dL 4.0-5.0 L Globulin, Total (test code = 2.8 g/dL 1.5-4.5 42218-8) A/G Ratio (test code = 1759-0) 1.2 [...] (test 38 mL/min/1.73 >59 L code = 15771-1) eGFR If Africn Am (test code = 44 mL/min/1.73 >59 L 00859-7) BUN/Creatinine Ratio (test 25 9-20 H code = 3097-3) Sodium (test code = 2951-2) 138 mmol/L 134-144 Potassium (test code = 2823-3) 5.4 mmol/L 3.5-5.2 H Chloride (test code = 2075-0) 96 mmol/L 96-106 Carbon Dioxide, Total (test 29 mmol/L 20-29 code = 8-9) Calcium (test code = 93323-9) 9.2 mg/dL 8.7-10.2 Protein, Total (test code = 6.2 g/dL 6.0-8.5 2885-2) Albumin (test code = 1751-7) 3.4 g/dL 4.0-5.0 L Globulin, Total (test code = 2.8 g/dL 1.5-4.5 23638-3) A/G Ratio (test code = 1759-0) 1.2 [...] (test 38 mL/min/1.73 >59 L code = 46767-3) eGFR If Africn Am (test code = 44 mL/min/1.73 >59 L 75934-8) BUN/Creatinine Ratio (test 25 9-20 H code = 3097-3) Sodium (test code = 2951-2) 138 mmol/L 134-144 Potassium (test code = 2823-3) 5.4 mmol/L 3.5-5.2 H Chloride (test code = 2075-0) 96 mmol/L 96-106 Carbon Dioxide, Total (test 29 mmol/L - code = 2027-) Calcium (test code = 04732-6) 9.2 mg/dL 8.7-10.2 Protein, Total (test code = 6.2 g/dL 6.0-8.5 2885-2) Albumin (test code = 1751-7) 3.4 g/dL 4.0-5.0 L Globulin, Total (test code = 2.8 g/dL 1.5-4.5 84031-8) A/G Ratio (test code = 1759-0) 1.2 [...] (test 38 mL/min/1.73 >59 L code = 02149-2) eGFR If Africn Am (test code = 44 mL/min/1.73 >59 L 43503-3) BUN/Creatinine Ratio (test 25 9-20 H code = 3097-3) Sodium (test code = 2951-2) 138 mmol/L 134-144 Potassium (test code = 2823-3) 5.4 mmol/L 3.5-5.2 H Chloride (test code = 2075-0) 96 mmol/L 96-106 Carbon Dioxide, Total (test 29 mmol/L - code = 2027-9) Calcium (test code = 07832-6) 9.2 mg/dL 8.7-10.2 Protein, Total (test code = 6.2 g/dL 6.0-8.5 2885-2) Albumin (test code = 1751-7) 3.4 g/dL 4.0-5.0 L Globulin, Total (test code = 2.8 g/dL 1.5-4.5 26522-9) A/G Ratio (test code = 1759-0) 1.2 [...] (test 38 mL/min/1.73 >59 L code = 79837-8) eGFR If Africn Am (test code = 44 mL/min/1.73 >59 L 47513-9) BUN/Creatinine Ratio (test 25 9-20 H code = 3097-3) Sodium (test code = 2951-2) 138 mmol/L 134-144 Potassium (test code = 2823-3) 5.4 mmol/L 3.5-5.2 H Chloride (test code = 2075-0) 96 mmol/L 96-106 Carbon Dioxide, Total (test 29 mmol/L 20-29 code = 2027-9) Calcium (test code = 53082-8) 9.2 mg/dL 8.7-10.2 Protein, Total (test code = 6.2 g/dL 6.0-8.5 2885-2) Albumin (test code = 1751-7) 3.4 g/dL 4.0-5.0 L Globulin, Total (test code = 2.8 g/dL 1.5-4.5 81739-7) A/G Ratio (test code = 1759-0) 1.2 [...] (test 38 mL/min/1.73 >59 L code = 65506-0) eGFR If Africn Am (test code = 44 mL/min/1.73 >59 L 07987-3) BUN/Creatinine Ratio (test 25 9-20 H code = 3097-3) Sodium (test code = 2951-2) 138 mmol/L 134-144 Potassium (test code = 2823-3) 5.4 mmol/L 3.5-5.2 H Chloride (test code = 2075-0) 96 mmol/L 96-106 Carbon Dioxide, Total (test 29 mmol/L 20-29 code = 8-9) Calcium (test code = 50816-6) 9.2 mg/dL 8.7-10.2 Protein, Total (test code = 6.2 g/dL 6.0-8.5 2885-2) Albumin (test code = 1751-7) 3.4 g/dL 4.0-5.0 L Globulin, Total (test code = 2.8 g/dL 1.5-4.5 89431-2) A/G Ratio (test code = 1759-0) 1.2 [...] (test 38 mL/min/1.73 >59 L code = 89337-9) eGFR If Africn Am (test code = 44 mL/min/1.73 >59 L 92356-0) BUN/Creatinine Ratio (test 25 9-20 H code = 3097-3) Sodium (test code = 2951-2) 138 mmol/L 134-144 Potassium (test code = 2823-3) 5.4 mmol/L 3.5-5.2 H Chloride (test code = 2075-0) 96 mmol/L 96-106 Carbon Dioxide, Total (test 29 mmol/L 20-29 code = 8-9) Calcium (test code = 79212-5) 9.2 mg/dL 8.7-10.2 Protein, Total (test code = 6.2 g/dL 6.0-8.5 2885-2) Albumin (test code = 1751-7) 3.4 g/dL 4.0-5.0 L Globulin, Total (test code = 2.8 g/dL 1.5-4.5 61932-1) A/G Ratio (test code = 1759-0) 1.2 1.2-2.2 Bilirubin, Total (test code = 0.5 mg/dL 0.0-1.2 1974-) Alkaline Phosphatase (test 112 IU/L 39-117 code = 6768-6) AST (SGOT) (test code = 21 IU/L 0-40 1920-8) ALT (SGPT) (test code = 31 IU/L 0-44 1742-6) [facility] (14)2020-03-07 06:49:00 Test Item Value Reference Range Interpretation Comments Glucose (test code = 2345-7) 441 mg/dL 65-99 H BUN (test code = 3094-0) 52 mg/dL 6-24 H Creatinine (test code = 2.05 mg/dL 0.76-1.27 H 2160-0) eGFR If NonAfricn Am (test 38 mL/min/1.73 >59 L code = 56991-1) eGFR If Africn Am (test code = 44 mL/min/1.73 >59 L 62085-4) BUN/Creatinine Ratio (test 25 9-20 H code = 3097-3) Sodium (test code = 2951-2) 138 mmol/L 134-144 Potassium (test code = 2823-3) 5.4 mmol/L 3.5-5.2 H Chloride (test code = 2075-0) 96 mmol/L 96-106 Carbon Dioxide, Total (test 29 mmol/L 20-29 code = 8-9) Calcium (test code = 94621-1) 9.2 mg/dL 8.7-10.2 Protein, Total (test code = 6.2 g/dL 6.0-8.5 2885-2) Albumin (test code = 1751-7) 3.4 g/dL 4.0-5.0 L Globulin, Total (test code = 2.8 g/dL 1.5-4.5 47660-9) A/G Ratio (test code = 1759-0) 1.2 1.2-2.2 Bilirubin, Total (test code = 0.5 mg/dL 0.0-1.2 1975-2) Alkaline Phosphatase (test 112 IU/L 39-117 code = 6768-6) AST (SGOT) (test code = 21 IU/L 0-40 1920-8) ALT (SGPT) (test code = 31 IU/L 0-44 1742-6) [facility] (14)2020-03-07 06:49:00 Test Item Value Reference Range Interpretation Comments Glucose (test code = 2345-7) 441 mg/dL 65-99 H BUN (test code = 3094-0) 52 mg/dL 6-24 H Creatinine (test code = 2.05 mg/dL 0.76-1.27 H 2160-0) eGFR If NonAfricn Am (test 38 mL/min/1.73 >59 L code = 29980-1) eGFR If Africn Am (test code = 44 mL/min/1.73 >59 L 66026-8) BUN/Creatinine Ratio (test 25 9-20 H code = 3097-3) Sodium (test code = 2951-2) 138 mmol/L 134-144 Potassium (test code = 2823-3) 5.4 mmol/L 3.5-5.2 H Chloride (test code = 2075-0) 96 mmol/L 96-106 Carbon Dioxide, Total (test 29 mmol/L 20-29 code = 8-9) Calcium (test code = 83297-6) 9.2 mg/dL 8.7-10.2 Protein, Total (test code = 6.2 g/dL 6.0-8.5 2885-2) Albumin (test code = 1751-7) 3.4 g/dL 4.0-5.0 L Globulin, Total (test code = 2.8 g/dL 1.5-4.5 54819-4) A/G Ratio (test code = 1759-0) 1.2 [...] (test 38 mL/min/1.73 >59 L code = 52599-0) eGFR If Africn Am (test code = 44 mL/min/1.73 >59 L 62827-1) BUN/Creatinine Ratio (test 25 9-20 H code = 3097-3) Sodium (test code = 2951-2) 138 mmol/L 134-144 Potassium (test code = 2823-3) 5.4 mmol/L 3.5-5.2 H Chloride (test code = 2075-0) 96 mmol/L 96-106 Carbon Dioxide, Total (test 29 mmol/L 20-29 code = 2028-9) Calcium (test code = 52672-3) 9.2 mg/dL 8.7-10.2 Protein, Total (test code = 6.2 g/dL 6.0-8.5 2885-2) Albumin (test code = 1751-7) 3.4 g/dL 4.0-5.0 L Globulin, Total (test code = 2.8 g/dL 1.5-4.5 91595-9) A/G Ratio (test code = 1759-0) 1.2 [...] (test 38 mL/min/1.73 >59 L code = 90201-2) eGFR If Africn Am (test code = 44 mL/min/1.73 >59 L 74920-4) BUN/Creatinine Ratio (test 25 9-20 H code = 3097-3) Sodium (test code = 2951-2) 138 mmol/L 134-144 Potassium (test code = 2823-3) 5.4 mmol/L 3.5-5.2 H Chloride (test code = 2075-0) 96 mmol/L 96-106 Carbon Dioxide, Total (test 29 mmol/L 20-29 code = 8-9) Calcium (test code = 45019-9) 9.2 mg/dL 8.7-10.2 Protein, Total (test code = 6.2 g/dL 6.0-8.5 2885-2) Albumin (test code = 1751-7) 3.4 g/dL 4.0-5.0 L Globulin, Total (test code = 2.8 g/dL 1.5-4.5 33565-8) A/G Ratio (test code = 1759-0) 1.2 [...] (test 38 mL/min/1.73 >59 L code = 36779-6) eGFR If Africn Am (test code = 44 mL/min/1.73 >59 L 45921-8) BUN/Creatinine Ratio (test 25 9-20 H code = 3097-3) Sodium (test code = 2951-2) 138 mmol/L 134-144 Potassium (test code = 2823-3) 5.4 mmol/L 3.5-5.2 H Chloride (test code = 2075-0) 96 mmol/L 96-106 Carbon Dioxide, Total (test 29 mmol/L 20-29 code = 2027-9) Calcium (test code = 13308-9) 9.2 mg/dL 8.7-10.2 Protein, Total (test code = 6.2 g/dL 6.0-8.5 2885-2) Albumin (test code = 1751-7) 3.4 g/dL 4.0-5.0 L Globulin, Total (test code = 2.8 g/dL 1.5-4.5 43769-0) A/G Ratio (test code = 1759-0) 1.2 [...] (test 38 mL/min/1.73 >59 L code = 24416-5) eGFR If Africn Am (test code = 44 mL/min/1.73 >59 L 02741-8) BUN/Creatinine Ratio (test 25 9-20 H code = 3097-3) Sodium (test code = 2951-2) 138 mmol/L 134-144 Potassium (test code = 2823-3) 5.4 mmol/L 3.5-5.2 H Chloride (test code = 2075-0) 96 mmol/L 96-106 Carbon Dioxide, Total (test 29 mmol/L 20-29 code = 2027-9) Calcium (test code = 16573-8) 9.2 mg/dL 8.7-10.2 Protein, Total (test code = 6.2 g/dL 6.0-8.5 2885-2) Albumin (test code = 1751-7) 3.4 g/dL 4.0-5.0 L Globulin, Total (test code = 2.8 g/dL 1.5-4.5 76994-6) A/G Ratio (test code = 1759-0) 1.2 [...] (test 38 mL/min/1.73 >59 L code = 99998-8) eGFR If Africn Am (test code = 44 mL/min/1.73 >59 L 85816-0) BUN/Creatinine Ratio (test 25 9-20 H code = 3097-3) Sodium (test code = 2951-2) 138 mmol/L 134-144 Potassium (test code = 2823-3) 5.4 mmol/L 3.5-5.2 H Chloride (test code = 2075-0) 96 mmol/L 96-106 Carbon Dioxide, Total (test 29 mmol/L 20-29 code = 8-9) Calcium (test code = 73165-0) 9.2 mg/dL 8.7-10.2 Protein, Total (test code = 6.2 g/dL 6.0-8.5 2885-2) Albumin (test code = 1751-7) 3.4 g/dL 4.0-5.0 L Globulin, Total (test code = 2.8 g/dL 1.5-4.5 19444-9) A/G Ratio (test code = 1759-0) 1.2 [...] (test 38 mL/min/1.73 >59 L code = 04269-7) eGFR If Africn Am (test code = 44 mL/min/1.73 >59 L 73638-7) BUN/Creatinine Ratio (test 25 9-20 H code = 3097-3) Sodium (test code = 2951-2) 138 mmol/L 134-144 Potassium (test code = 2823-3) 5.4 mmol/L 3.5-5.2 H Chloride (test code = 2075-0) 96 mmol/L 96-106 Carbon Dioxide, Total (test 29 mmol/L 20-29 code = 8-9) Calcium (test code = 30564-3) 9.2 mg/dL 8.7-10.2 Protein, Total (test code = 6.2 g/dL 6.0-8.5 2885-2) Albumin (test code = 1751-7) 3.4 g/dL 4.0-5.0 L Globulin, Total (test code = 2.8 g/dL 1.5-4.5 03133-2) A/G Ratio (test code = 1759-0) 1.2 1.2-2.2 Bilirubin, Total (test code = 0.5 mg/dL 0.0-1.2 1974-2) Alkaline Phosphatase (test 112 IU/L 39-117 code = 6768-6) AST (SGOT) (test code = 21 IU/L 0-40 1920-8) ALT (SGPT) (test code = 31 IU/L 0-44 1742-6) [facility]/[id number] 07:17:11Tyshawn Serra MD 2019 7:47 AMIncision/DrainageDate/Time: 2019 [...] NoneType of anesthesia: NoneGrafts or Implan ts: [facility]: Hemoglobin A1c/Hemoglobin.total in [id number] 16:33:00 Test Item Value Reference Range Interpretation Comments Hemoglobin A1c (test code 13.0 % 4.8-5.6 H = 4548-4) . Prediabetes: 5. 7 - 6.4 Diabete s: >6.4 Glycemi c control for niall lts with diabetes: <7.0

P erforme d by:
[facility] ([place])

[facility] Description: Hemoglobin A1c/Hemoglobin.total in Blood 2019-11-10 16:33:00 Test Item Value Reference Range Interpretation Comments Hemoglobin A1c (test code 13.0 % 4.8-5.6 H = 4548-4) . Prediabetes: 5. 7 - 6.4 Diabete s: >6.4 Glycemi c control for niall lts with diabetes: <7.0

P erforme d by:
[facility] [place] ([place])

[facility] Description: Hemoglobin A1c/Hemoglobin.total in Blood 2019-11-10 16:33:00 Test Item Value Reference Range Interpretation Comments Hemoglobin A1c (test code 13.0 % 4.8-5.6 H = 4548-4) . Prediabetes: 5. 7 - 6.4 Diabete s: >6.4 Glycemi c control for niall lts with diabetes: <7.0

P erforme d by:
[facility] [place] ([place])

[facility] Description: Hemoglobin A1c/Hemoglobin.total in Blood 2019-11-10 16:33:00 Test Item Value Reference Range Interpretation Comments Hemoglobin A1c (test code 13.0 % 4.8-5.6 H = 4548-4) . Prediabetes: 5. 7 - 6.4 Diabete s: >6.4 Glycemi c control for niall lts with diabetes: <7.0

P erforme d by:
[facility] [place] ([place])

[facility] Description: Hemoglobin A1c/Hemoglobin.total in Blood 2019-11-10 16:33:00 Test Item Value Reference Range Interpretation Comments Hemoglobin A1c (test code 13.0 % 4.8-5.6 H = 4548-4) . Prediabetes: 5. 7 - 6.4 Diabete s: >6.4 Glycemi c control for niall lts with diabetes: <7.0

P erforme d by:
[facility] [place] ([place])

[facility] Description: Hemoglobin A1c/Hemoglobin.total in Blood 2019-11-10 16:33:00 Test Item Value Reference Range Interpretation Comments Hemoglobin A1c (test code 13.0 % 4.8-5.6 H = 4548-4) . Prediabetes: 5. 7 - 6.4 Diabete s: >6.4 Glycemi c control for niall lts with diabetes: <7.0

P erforme d by:
[facility] [place] ([place])

[facility] Description: Hemoglobin A1c/Hemoglobin.total in Blood 2019-11-10 16:33:00 Test Item Value Reference Range Interpretation Comments Hemoglobin A1c (test code 13.0 % 4.8-5.6 H = 4548-4) . Prediabetes: 5. 7 - 6.4 Diabete s: >6.4 Glycemi c control for niall lts with diabetes: <7.0

P erforme d by:
[facility] [place] ([place])

[facility] Description: Hemoglobin A1c/Hemoglobin.total in Blood 2019-11-10 16:33:00 Test Item Value Reference Range Interpretation Comments Hemoglobin A1c (test code 13.0 % 4.8-5.6 H = 4548-4) . Prediabetes: 5. 7 - 6.4 Diabete s: >6.4 Glycemi c control for niall lts with diabetes: <7.0

P erforme d by:
[facility] [place] ([place])

[facility] Description: Hemoglobin A1c/Hemoglobin.total in Blood 2019-11-10 16:33:00 Test Item Value Reference Range Interpretation Comments Hemoglobin A1c (test code 13.0 % 4.8-5.6 H = 4548-4) . Prediabetes: 5. 7 - 6.4 Diabete s: >6.4 Glycemi c control for niall lts with diabetes: <7.0

P erforme d by:
[facility] [place] ([place])

[facility] Description: Hemoglobin A1c/Hemoglobin.total in Blood 2019-11-10 16:33:00 Test Item Value Reference Range Interpretation Comments Hemoglobin A1c (test code 13.0 % 4.8-5.6 H = 4548-4) . Prediabetes: 5. 7 - 6.4 Diabete s: >6.4 Glycemi c control for niall lts with diabetes: <7.0

P erforme d by:
[facility] [place] ([place])

[facility] Description: Hemoglobin A1c/Hemoglobin.total in Blood 2019-11-10 16:33:00 Test Item Value Reference Range Interpretation Comments Hemoglobin A1c (test code 13.0 % 4.8-5.6 H = 4548-4) . Prediabetes: 5. 7 - 6.4 Diabete s: >6.4 Glycemi c control for niall lts with diabetes: <7.0

P erforme d by:
[facility] [place] ([place])

[facility] Description: Hemoglobin A1c/Hemoglobin.total in Blood 2019-11-10 16:33:00 Test Item Value Reference Range Interpretation Comments Hemoglobin A1c (test code 13.0 % 4.8-5.6 H = 4548-4) . Prediabetes: 5. 7 - 6.4 Diabete s: >6.4 Glycemi c control for niall lts with diabetes: <7.0

P erforme d by:
[facility] [place] ([place])

[facility] Description: Hemoglobin A1c/Hemoglobin.total in Blood 2019-11-10 16:33:00 Test Item Value Reference Range Interpretation Comments Hemoglobin A1c (test code 13.0 % 4.8-5.6 H = 4548-4) . Prediabetes: 5. 7 - 6.4 Diabete s: >6.4 Glycemi c control for niall lts with diabetes: <7.0

P erforme d by:
[facility] [place] ([place])

[facility] Description: Hemoglobin A1c/Hemoglobin.total in Blood 2019-11-10 16:33:00 Test Item Value Reference Range Interpretation Comments Hemoglobin A1c (test code 13.0 % 4.8-5.6 H = 4548-4) . Prediabetes: 5. 7 - 6.4 Diabete s: >6.4 Glycemi c control for niall lts with diabetes: <7.0

P erforme d by:
[facility] [place] ([place])

[facility] Description: Hemoglobin A1c/Hemoglobin.total in Blood 2019-11-10 16:33:00 Test Item Value Reference Range Interpretation Comments Hemoglobin A1c (test code 13.0 % 4.8-5.6 H = 4548-4) . Prediabetes: 5. 7 - 6.4 Diabete s: >6.4 Glycemi c control for niall lts with diabetes: <7.0

P erforme d by:
[facility] [place] ([place])

[facility] Description: Hemoglobin A1c/Hemoglobin.total in Blood 2019-11-10 16:33:00 Test Item Value Reference Range Interpretation Comments Hemoglobin A1c (test code 13.0 % 4.8-5.6 H = 4548-4) . Prediabetes: 5. 7 - 6.4 Diabete s: >6.4 Glycemi c control for niall lts with diabetes: <7.0

P erforme d by:
[facility] [place] ([place])

[facility] Description: Hemoglobin A1c/Hemoglobin.total in Blood 2019-11-10 16:33:00 Test Item Value Reference Range Interpretation Comments Hemoglobin A1c (test code 13.0 % 4.8-5.6 H = 4548-4) . Prediabetes: 5. 7 - 6.4 Diabete s: >6.4 Glycemi c control for niall lts with diabetes: <7.0

P erforme d by:
[facility] [place] ([place])

[facility] Description: Hemoglobin A1c/Hemoglobin.total in Blood 2019-11-10 16:33:00 Test Item Value Reference Range Interpretation Comments Hemoglobin A1c (test code 13.0 % 4.8-5.6 H = 4548-4) . Prediabetes: 5. 7 - 6.4 Diabete s: >6.4 Glycemi c control for niall lts with diabetes: <7.0

P erforme d by:
[facility] [place] ([place])

[facility] Description: Hemoglobin A1c/Hemoglobin.total in Blood 2019-11-10 16:33:00 Test Item Value Reference Range Interpretation Comments Hemoglobin A1c (test code 13.0 % 4.8-5.6 H = 4548-4) . Prediabetes: 5. 7 - 6.4 Diabete s: >6.4 Glycemi c control for niall lts with diabetes: <7.0

P erforme d by:
[facility] [place] ([place])

[facility] Description: Hemoglobin A1c/Hemoglobin.total in Blood 2019-11-10 16:33:00 Test Item Value Reference Range Interpretation Comments Hemoglobin A1c (test code 13.0 % 4.8-5.6 H = 4548-4) . Prediabetes: 5. 7 - 6.4 Diabete s: >6.4 Glycemi c control for niall lts with diabetes: <7.0

P erforme d by:
[facility] [place] ([place])

[facility] Description: Hemoglobin A1c/Hemoglobin.total in Blood 2019-11-10 16:33:00 Test Item Value Reference Range Interpretation Comments Hemoglobin A1c (test code 13.0 % 4.8-5.6 H = 4548-4) . Prediabetes: 5. 7 - 6.4 Diabete s: >6.4 Glycemi c control for niall lts with diabetes: <7.0

P erforme d by:
[facility] [place] ([place])

[facility] Description: Hemoglobin A1c/Hemoglobin.total in Blood 2019-11-10 16:33:00 Test Item Value Reference Range Interpretation Comments Hemoglobin A1c (test code 13.0 % 4.8-5.6 H = 4548-4) . Prediabetes: 5. 7 - 6.4 Diabete s: >6.4 Glycemi c control for niall lts with diabetes: <7.0

P erforme d by:
[facility] [place] ([place])

[facility] Description: Hemoglobin A1c/Hemoglobin.total in Blood 2019-11-10 16:33:00 Test Item Value Reference Range Interpretation Comments Hemoglobin A1c (test code 13.0 % 4.8-5.6 H = 4548-4) . Prediabetes: 5. 7 - 6.4 Diabete s: >6.4 Glycemi c control for niall lts with diabetes: <7.0

P erforme d by:
[facility] [place] ([place])

[facility] Description: Hemoglobin A1c/Hemoglobin.total in Blood 2019-11-10 16:33:00 Test Item Value Reference Range Interpretation Comments Hemoglobin A1c (test code 13.0 % 4.8-5.6 H = 4548-4) . Prediabetes: 5. 7 - 6.4 Diabete s: >6.4 Glycemi c control for niall lts with diabetes: <7.0

P erforme d by:
[facility] [place] ([place])

[facility] Description: Hemoglobin A1c/Hemoglobin.total in Blood 2019-11-10 16:33:00 Test Item Value Reference Range Interpretation Comments Hemoglobin A1c (test code 13.0 % 4.8-5.6 H = 4548-4) . Prediabetes: 5. 7 - 6.4 Diabete s: >6.4 Glycemi c control for niall lts with diabetes: <7.0

P erforme d by:
[facility] [place] ([place])

[facility] Description: Hemoglobin A1c/Hemoglobin.total in Blood 2019-11-10 16:33:00 Test Item Value Reference Range Interpretation Comments Hemoglobin A1c (test code 13.0 % 4.8-5.6 H = 4548-4) . Prediabetes: 5. 7 - 6.4 Diabete s: >6.4 Glycemi c control for niall lts with diabetes: <7.0

P erforme d by:
[facility] [place] ([place])

[facility] Description: Hemoglobin A1c/Hemoglobin.total in Blood 2019-11-10 16:33:00 Test Item Value Reference Range Interpretation Comments Hemoglobin A1c (test code 13.0 % 4.8-5.6 H = 4548-4) . Prediabetes: 5. 7 - 6.4 Diabete s: >6.4 Glycemi c control for niall lts with diabetes: <7.0

P erforme d by:
[facility] [place] ([place])

[facility] Description: Hemoglobin A1c/Hemoglobin.total in Blood 2019-11-10 16:33:00 Test Item Value Reference Range Interpretation Comments Hemoglobin A1c (test code 13.0 % 4.8-5.6 H = 4548-4) . Prediabetes: 5. 7 - 6.4 Diabete s: >6.4 Glycemi c control for niall lts with diabetes: <7.0

P erforme d by:
[facility] [place] ([place])

[facility] Description: Hemoglobin A1c/Hemoglobin.total in Blood 2019-11-10 16:33:00 Test Item Value Reference Range Interpretation Comments Hemoglobin A1c (test code 13.0 % 4.8-5.6 H = 4548-4) . Prediabetes: 5. 7 - 6.4 Diabete s: >6.4 Glycemi c control for niall lts with diabetes: <7.0

P erforme d by:
[facility] [place] ([place])

[facility] Description: Comp. Metabolic Panel (14)2019-11-10 03:19:00 Test Item Value Reference Range Interpretation Comments Glucose (test code = 2345-7) 439 mg/dL 65-99 H BUN (test code = 3094-0) 49 mg/dL 6-24 H Creatinine (test code = 2.17 mg/dL 0.76-1.27 H 2160-0) eGFR If NonAfricn Am (test 35 mL/min/1.73 >59 L code = 16814-3) eGFR If Africn Am (test code = 41 mL/min/1.73 >59 L 84619-4) BUN/Creatinine Ratio (test 23 9-20 H code = 3097-3) Sodium (test code = 2951-2) 137 mmol/L 134-144 Potassium (test code = 2823-3) 4.9 mmol/L 3.5-5.2 Chloride (test code = 2075-0) 93 mmol/L 96-106 L Carbon Dioxide, Total (test 29 mmol/L 20-29 code = 8-9) Calcium (test code = 90022-4) 9.5 mg/dL 8.7-10.2 Protein, Total (test code = 6.5 g/dL 6.0-8.5 2885-2) Albumin (test code = 1751-7) 3.6 g/dL 4.0-5.0 L Globulin, Total (test code = 2.9 g/dL 1.5-4.5 76193-4) A/G Ratio (test code = 1759-0) 1.2 1.2-2.2 Bilirubin, Total (test code = 0.5 mg/dL 0.0-1.2 1975-2) Alkaline Phosphatase (test 103 IU/L 39-117 code = 6768-6) AST (SGOT) (test code = 20 IU/L 0-40 1920-8) ALT (SGPT) (test code = 30 IU/L 0-44 1742-6) [facility]: Lipid [id number] 03:19:00 Test Item Value Reference Range Interpretation Comments Cholesterol, Total (test code = 231 mg/dL 100-199 H 2092-3) Triglycerides (test code = 2571-8) 215 mg/dL 0-149 H HDL Cholesterol (test code = 34 mg/dL >39 L 2084-9) VLDL Cholesterol Renuka (test code = 43 mg/dL 5-40 H 73788-1) LDL Cholesterol Calc (test code = 154 mg/dL 0-99 H 94338-1) Comment: (test code = 30977-4) [facility] Description: Comp. Metabolic Panel (14)2019-11-10 03:19:00 Test Item Value Reference Range Interpretation Comments Glucose (test code = 2345-7) 439 mg/dL 65-99 H BUN (test code = 3094-0) 49 mg/dL 6-24 H Creatinine (test code = 2.17 mg/dL 0.76-1.27 H 2160-0) eGFR If NonAfricn Am (test 35 mL/min/1.73 >59 L code = 84113-4) eGFR If Africn Am (test code = 41 mL/min/1.73 >59 L 94732-2) BUN/Creatinine Ratio (test 23 9-20 H code = 3097-3) Sodium (test code = 2951-2) 137 mmol/L 134-144 Potassium (test code = 2823-3) 4.9 mmol/L 3.5-5.2 Chloride (test code = 2075-0) 93 mmol/L 96-106 L Carbon Dioxide, Total (test 29 mmol/L 20-29 code = 8-9) Calcium (test code = 77943-8) 9.5 mg/dL 8.7-10.2 Protein, Total (test code = 6.5 g/dL 6.0-8.5 2885-2) Albumin (test code = 1751-7) 3.6 g/dL 4.0-5.0 L Globulin, Total (test code = 2.9 g/dL 1.5-4.5 00183-1) A/G Ratio (test code = 1759-0) 1.2 1.2-2.2 Bilirubin, Total (test code = 0.5 mg/dL 0.0-1.2 1975-2) Alkaline Phosphatase (test 103 IU/L 39-117 code = 6768-6) AST (SGOT) (test code = 20 IU/L 0-40 1920-8) ALT (SGPT) (test code = 30 IU/L 0-44 1742-6) [facility] Description: Lipid [id number] 03:19:00 Test Item Value Reference Range Interpretation Comments Cholesterol, Total (test code = 231 mg/dL 100-199 H 2092-3) Triglycerides (test code = 2571-8) 215 mg/dL 0-149 H HDL Cholesterol (test code = 34 mg/dL >39 L 2084-9) VLDL Cholesterol Renuka (test code = 43 mg/dL 5-40 H 64747-3) LDL Cholesterol Calc (test code = 154 mg/dL 0-99 H 56189-6) Comment: (test code = 63896-0) [facility] Description: Comp. Metabolic Panel ()2019-11-10 03:19:00 Test Item Value Reference Range Interpretation Comments Glucose (test code = 2345-7) 439 mg/dL 65-99 H BUN (test code = 3094-0) 49 mg/dL 6-24 H Creatinine (test code = 2.17 mg/dL 0.76-1.27 H 2160-0) eGFR If NonAfricn Am (test 35 mL/min/1.73 >59 L code = 94209-1) eGFR If Africn Am (test code = 41 mL/min/1.73 >59 L 67242-5) BUN/Creatinine Ratio (test 23 9-20 H code = 3097-3) Sodium (test code = 2951-2) 137 mmol/L 134-144 Potassium (test code = 2823-3) 4.9 mmol/L 3.5-5.2 Chloride (test code = 2075-0) 93 mmol/L 96-106 L Carbon Dioxide, Total (test 29 mmol/L 20-29 code = 2027-9) Calcium (test code = 03996-1) 9.5 mg/dL 8.7-10.2 Protein, Total (test code = 6.5 g/dL 6.0-8.5 2885-2) Albumin (test code = 1751-7) 3.6 g/dL 4.0-5.0 L Globulin, Total (test code = 2.9 g/dL 1.5-4.5 41866-1) A/G Ratio (test code = 1759-0) 1.2 1.2-2.2 Bilirubin, Total (test code = 0.5 mg/dL 0.0-1.2 1975-2) Alkaline Phosphatase (test 103 IU/L 39-117 code = 6768-6) AST (SGOT) (test code = 20 IU/L 0-40 1920-8) ALT (SGPT) (test code = 30 IU/L 0-44 1742-6) [facility] Description: Lipid [id number] 03:19:00 Test Item Value Reference Range Interpretation Comments Cholesterol, Total (test code = 231 mg/dL 100-199 H 2092-3) Triglycerides (test code = 2571-8) 215 mg/dL 0-149 H HDL Cholesterol (test code = 34 mg/dL >39 L 2084-9) VLDL Cholesterol Renuka (test code = 43 mg/dL 5-40 H 77953-3) LDL Cholesterol Calc (test code = 154 mg/dL 0-99 H 10176-2) Comment: (test code = 65646-4) [facility] Description: Comp. Metabolic Panel ()2019-11-10 03:19:00 Test Item Value Reference Range Interpretation Comments Glucose (test code = 2345-7) 439 mg/dL 65-99 H BUN (test code = 3094-0) 49 mg/dL 6-24 H Creatinine (test code = 2.17 mg/dL 0.76-1.27 H 2160-0) eGFR If NonAfricn Am (test 35 mL/min/1.73 >59 L code = 21838-6) eGFR If Africn Am (test code = 41 mL/min/1.73 >59 L 86369-2) BUN/Creatinine Ratio (test 23 9-20 H code = 3097-3) Sodium (test code = 2951-2) 137 mmol/L 134-144 Potassium (test code = 2823-3) 4.9 mmol/L 3.5-5.2 Chloride (test code = 2075-0) 93 mmol/L 96-106 L Carbon Dioxide, Total (test 29 mmol/L 20-29 code = 2027-9) Calcium (test code = 81449-0) 9.5 mg/dL 8.7-10.2 Protein, Total (test code = 6.5 g/dL 6.0-8.5 2885-2) Albumin (test code = 1751-7) 3.6 g/dL 4.0-5.0 L Globulin, Total (test code = 2.9 g/dL 1.5-4.5 62706-2) A/G Ratio (test code = 1759-0) 1.2 1.2-2.2 Bilirubin, Total (test code = 0.5 mg/dL 0.0-1.2 1975-2) Alkaline Phosphatase (test 103 IU/L 39-117 code = 6768-6) AST (SGOT) (test code = 20 IU/L 0-40 1920-8) ALT (SGPT) (test code = 30 IU/L 0-44 1742-6) [facility] Description: Lipid [id number] 03:19:00 Test Item Value Reference Range Interpretation Comments Cholesterol, Total (test code = 231 mg/dL 100-199 H 2093-3) Triglycerides (test code = 2571-8) 215 mg/dL 0-149 H HDL Cholesterol (test code = 34 mg/dL >39 L 2085-9) VLDL Cholesterol Renuka (test code = 43 mg/dL 5-40 H 04176-3) LDL Cholesterol Calc (test code = 154 mg/dL 0-99 H 57408-5) Comment: (test code = 80731-1) [facility] Description: Comp. Metabolic Panel ()2019-11-10 03:19:00 Test Item Value Reference Range Interpretation Comments Glucose (test code = 2345-7) 439 mg/dL 65-99 H BUN (test code = 3094-0) 49 mg/dL 6-24 H Creatinine (test code = 2.17 mg/dL 0.76-1.27 H 2160-0) eGFR If NonAfricn Am (test 35 mL/min/1.73 >59 L code = 68618-5) eGFR If Africn Am (test code = 41 mL/min/1.73 >59 L 41845-9) BUN/Creatinine Ratio (test 23 9-20 H code = 3097-3) Sodium (test code = 2951-2) 137 mmol/L 134-144 Potassium (test code = 2823-3) 4.9 mmol/L 3.5-5.2 Chloride (test code = 2075-0) 93 mmol/L 96-106 L Carbon Dioxide, Total (test 29 mmol/L 20-29 code = 2028-9) Calcium (test code = 76376-8) 9.5 mg/dL 8.7-10.2 Protein, Total (test code = 6.5 g/dL 6.0-8.5 2885-2) Albumin (test code = 1751-7) 3.6 g/dL 4.0-5.0 L Globulin, Total (test code = 2.9 g/dL 1.5-4.5 66280-9) A/G Ratio (test code = 1759-0) 1.2 1.2-2.2 Bilirubin, Total (test code = 0.5 mg/dL 0.0-1.2 1975-2) Alkaline Phosphatase (test 103 IU/L 39-117 code = 6768-6) AST (SGOT) (test code = 20 IU/L 0-40 1920-8) ALT (SGPT) (test code = 30 IU/L 0-44 1742-6) [facility] Description: Lipid [id number] 03:19:00 Test Item Value Reference Range Interpretation Comments Cholesterol, Total (test code = 231 mg/dL 100-199 H 2093-3) Triglycerides (test code = 2571-8) 215 mg/dL 0-149 H HDL Cholesterol (test code = 34 mg/dL >39 L 5-9) VLDL Cholesterol Renuka (test code = 43 mg/dL 5-40 H 77756-2) LDL Cholesterol Calc (test code = 154 mg/dL 0-99 H 19475-2) Comment: (test code = 47600-4) [facility] Description: Comp. Metabolic Panel (14)2019-11-10 03:19:00 Test Item Value Reference Range Interpretation Comments Glucose (test code = 2345-7) 439 mg/dL 65-99 H BUN (test code = 3094-0) 49 mg/dL 6-24 H Creatinine (test code = 2.17 mg/dL 0.76-1.27 H 2160-0) eGFR If NonAfricn Am (test 35 mL/min/1.73 >59 L code = 84879-8) eGFR If Africn Am (test code = 41 mL/min/1.73 >59 L 68355-5) BUN/Creatinine Ratio (test 23 9-20 H code = 3097-3) Sodium (test code = 2951-2) 137 mmol/L 134-144 Potassium (test code = 2823-3) 4.9 mmol/L 3.5-5.2 Chloride (test code = 2075-0) 93 mmol/L 96-106 L Carbon Dioxide, Total (test 29 mmol/L 20-29 code = 2028-9) Calcium (test code = 13364-6) 9.5 mg/dL 8.7-10.2 Protein, Total (test code = 6.5 g/dL 6.0-8.5 2885-2) Albumin (test code = 1751-7) 3.6 g/dL 4.0-5.0 L Globulin, Total (test code = 2.9 g/dL 1.5-4.5 49590-2) A/G Ratio (test code = 1759-0) 1.2 1.2-2.2 Bilirubin, Total (test code = 0.5 mg/dL 0.0-1.2 1975-2) Alkaline Phosphatase (test 103 IU/L 39-117 code = 6768-6) AST (SGOT) (test code = 20 IU/L 0-40 1920-8) ALT (SGPT) (test code = 30 IU/L 0-44 1742-6) [facility] Description: Lipid [id number] 03:19:00 Test Item Value Reference Range Interpretation Comments Cholesterol, Total (test code = 231 mg/dL 100-199 H 2092-3) Triglycerides (test code = 2571-8) 215 mg/dL 0-149 H HDL Cholesterol (test code = 34 mg/dL >39 L 2084-9) VLDL Cholesterol Renuka (test code = 43 mg/dL 5-40 H 77056-1) LDL Cholesterol Calc (test code = 154 mg/dL 0-99 H 18647-9) Comment: (test code = 57902-0) [facility] Description: Comp. Metabolic Panel (2019-11-10 03:19:00 Test Item Value Reference Range Interpretation Comments Glucose (test code = 2345-7) 439 mg/dL 65-99 H BUN (test code = 3094-0) 49 mg/dL 6-24 H Creatinine (test code = 2.17 mg/dL 0.76-1.27 H 2160-0) eGFR If NonAfricn Am (test 35 mL/min/1.73 >59 L code = 93491-9) eGFR If Africn Am (test code = 41 mL/min/1.73 >59 L 01806-9) BUN/Creatinine Ratio (test 23 9-20 H code = 3097-3) Sodium (test code = 2951-2) 137 mmol/L 134-144 Potassium (test code = 2823-3) 4.9 mmol/L 3.5-5.2 Chloride (test code = 2075-0) 93 mmol/L 96-106 L Carbon Dioxide, Total (test 29 mmol/L 20-29 code = 8-9) Calcium (test code = 30208-4) 9.5 mg/dL 8.7-10.2 Protein, Total (test code = 6.5 g/dL 6.0-8.5 2885-2) Albumin (test code = 1751-7) 3.6 g/dL 4.0-5.0 L Globulin, Total (test code = 2.9 g/dL 1.5-4.5 22855-8) A/G Ratio (test code = 1759-0) 1.2 1.2-2.2 Bilirubin, Total (test code = 0.5 mg/dL 0.0-1.2 1974-2) Alkaline Phosphatase (test 103 IU/L 39-117 code = 6768-6) AST (SGOT) (test code = 20 IU/L 0-40 1920-8) ALT (SGPT) (test code = 30 IU/L 0-44 1742-6) [facility] Description: Lipid [id number] 03:19:00 Test Item Value Reference Range Interpretation Comments Cholesterol, Total (test code = 231 mg/dL 100-199 H 2092-3) Triglycerides (test code = 2571-8) 215 mg/dL 0-149 H HDL Cholesterol (test code = 34 mg/dL >39 L 2084-9) VLDL Cholesterol Renuka (test code = 43 mg/dL 5-40 H 51287-9) LDL Cholesterol Calc (test code = 154 mg/dL 0-99 H 70248-5) Comment: (test code = 42132-7) [facility] (142019-11-10 03:19:00 Test Item Value Reference Range Interpretation Comments Glucose (test code = 2345-7) 439 mg/dL 65-99 H BUN (test code = 3094-0) 49 mg/dL 6-24 H Creatinine (test code = 2.17 mg/dL 0.76-1.27 H 2160-0) eGFR If NonAfricn Am (test 35 mL/min/1.73 >59 L code = 29982-3) eGFR If Africn Am (test code = 41 mL/min/1.73 >59 L 11591-4) BUN/Creatinine Ratio (test 23 9-20 H code = 3097-3) Sodium (test code = 2951-2) 137 mmol/L 134-144 Potassium (test code = 2823-3) 4.9 mmol/L 3.5-5.2 Chloride (test code = 2075-0) 93 mmol/L 96-106 L Carbon Dioxide, Total (test 29 mmol/L 20-29 code = 8-9) Calcium (test code = 09670-4) 9.5 mg/dL 8.7-10.2 Protein, Total (test code = 6.5 g/dL 6.0-8.5 2885-2) Albumin (test code = 1751-7) 3.6 g/dL 4.0-5.0 L Globulin, Total (test code = 2.9 g/dL 1.5-4.5 93785-2) A/G Ratio (test code = 1759-0) 1.2 1.2-2.2 Bilirubin, Total (test code = 0.5 mg/dL 0.0-1.2 1975-2) Alkaline Phosphatase (test 103 IU/L 39-117 code = 6768-6) AST (SGOT) (test code = 20 IU/L 0-40 1920-8) ALT (SGPT) (test code = 30 IU/L 0-44 1742-6) [facility] Description: Lipid [id number] 03:19:00 Test Item Value Reference Range Interpretation Comments Cholesterol, Total (test code = 231 mg/dL 100-199 H 3-3) Triglycerides (test code = 2571-8) 215 mg/dL 0-149 H HDL Cholesterol (test code = 34 mg/dL >39 L 5-9) VLDL Cholesterol Renuka (test code = 43 mg/dL 5-40 H 44992-6) LDL Cholesterol Calc (test code = 154 mg/dL 0-99 H 19585-2) Comment: (test code = 52025-7) [facility] Description: Comp. Metabolic Panel (14)2019-11-10 03:19:00 Test Item Value Reference Range Interpretation Comments Glucose (test code = 2345-7) 439 mg/dL 65-99 H BUN (test code = 3094-0) 49 mg/dL 6-24 H Creatinine (test code = 2.17 mg/dL 0.76-1.27 H 2160-0) eGFR If NonAfricn Am (test 35 mL/min/1.73 >59 L code = 29238-5) eGFR If Africn Am (test code = 41 mL/min/1.73 >59 L 77636-5) BUN/Creatinine Ratio (test 23 9-20 H code = 3097-3) Sodium (test code = 2951-2) 137 mmol/L 134-144 Potassium (test code = 2823-3) 4.9 mmol/L 3.5-5.2 Chloride (test code = 2075-0) 93 mmol/L 96-106 L Carbon Dioxide, Total (test 29 mmol/L 20-29 code = 8-9) Calcium (test code = 96889-1) 9.5 mg/dL 8.7-10.2 Protein, Total (test code = 6.5 g/dL 6.0-8.5 2885-2) Albumin (test code = 1751-7) 3.6 g/dL 4.0-5.0 L Globulin, Total (test code = 2.9 g/dL 1.5-4.5 76889-3) A/G Ratio (test code = 1759-0) 1.2 1.2-2.2 Bilirubin, Total (test code = 0.5 mg/dL 0.0-1.2 1975-2) Alkaline Phosphatase (test 103 IU/L 39-117 code = 6768-6) AST (SGOT) (test code = 20 IU/L 0-40 1920-8) ALT (SGPT) (test code = 30 IU/L 0-44 1742-6) [facility] Description: Lipid [id number] 03:19:00 Test Item Value Reference Range Interpretation Comments Cholesterol, Total (test code = 231 mg/dL 100-199 H 2093-3) Triglycerides (test code = 2571-8) 215 mg/dL 0-149 H HDL Cholesterol (test code = 34 mg/dL >39 L 2085-9) VLDL Cholesterol Renuka (test code = 43 mg/dL 5-40 H 41613-8) LDL Cholesterol Calc (test code = 154 mg/dL 0-99 H 59186-0) Comment: (test code = 99206-6) [facility] Description: Comp. Metabolic Panel ()2019-11-10 03:19:00 Test Item Value Reference Range Interpretation Comments Glucose (test code = 2345-7) 439 mg/dL 65-99 H BUN (test code = 3094-0) 49 mg/dL 6-24 H Creatinine (test code = 2.17 mg/dL 0.76-1.27 H 2160-0) eGFR If NonAfricn Am (test 35 mL/min/1.73 >59 L code = 36425-5) eGFR If Africn Am (test code = 41 mL/min/1.73 >59 L 79000-3) BUN/Creatinine Ratio (test 23 9-20 H code = 3097-3) Sodium (test code = 2951-2) 137 mmol/L 134-144 Potassium (test code = 2823-3) 4.9 mmol/L 3.5-5.2 Chloride (test code = 2075-0) 93 mmol/L 96-106 L Carbon Dioxide, Total (test 29 mmol/L 20-29 code = 8-9) Calcium (test code = 06674-3) 9.5 mg/dL 8.7-10.2 Protein, Total (test code = 6.5 g/dL 6.0-8.5 2885-2) Albumin (test code = 1751-7) 3.6 g/dL 4.0-5.0 L Globulin, Total (test code = 2.9 g/dL 1.5-4.5 82108-5) A/G Ratio (test code = 1759-0) 1.2 1.2-2.2 Bilirubin, Total (test code = 0.5 mg/dL 0.0-1.2 1974-2) Alkaline Phosphatase (test 103 IU/L 39-117 code = 6768-6) AST (SGOT) (test code = 20 IU/L 0-40 1920-8) ALT (SGPT) (test code = 30 IU/L 0-44 1742-6) [facility] Description: Lipid [id number] 03:19:00 Test Item Value Reference Range Interpretation Comments Cholesterol, Total (test code = 231 mg/dL 100-199 H 2093-3) Triglycerides (test code = 2571-8) 215 mg/dL 0-149 H HDL Cholesterol (test code = 34 mg/dL >39 L 2084-9) VLDL Cholesterol Renuka (test code = 43 mg/dL 5-40 H 40626-3) LDL Cholesterol Calc (test code = 154 mg/dL 0-99 H 30659-4) Comment: (test code = 39925-6) [facility] Description: Comp. Metabolic Panel ()2019-11-10 03:19:00 Test Item Value Reference Range Interpretation Comments Glucose (test code = 2345-7) 439 mg/dL 65-99 H BUN (test code = 3094-0) 49 mg/dL 6-24 H Creatinine (test code = 2.17 mg/dL 0.76-1.27 H 2160-0) eGFR If NonAfricn Am (test 35 mL/min/1.73 >59 L code = 45964-1) eGFR If Africn Am (test code = 41 mL/min/1.73 >59 L 96405-4) BUN/Creatinine Ratio (test 23 9-20 H code = 3097-3) Sodium (test code = 2951-2) 137 mmol/L 134-144 Potassium (test code = 2823-3) 4.9 mmol/L 3.5-5.2 Chloride (test code = 2075-0) 93 mmol/L 96-106 L Carbon Dioxide, Total (test 29 mmol/L 20-29 code = 8-9) Calcium (test code = 58053-6) 9.5 mg/dL 8.7-10.2 Protein, Total (test code = 6.5 g/dL 6.0-8.5 2885-2) Albumin (test code = 1751-7) 3.6 g/dL 4.0-5.0 L Globulin, Total (test code = 2.9 g/dL 1.5-4.5 77784-9) A/G Ratio (test code = 1759-0) 1.2 1.2-2.2 Bilirubin, Total (test code = 0.5 mg/dL 0.0-1.2 1975-2) Alkaline Phosphatase (test 103 IU/L 39-117 code = 6768-6) AST (SGOT) (test code = 20 IU/L 0-40 1920-8) ALT (SGPT) (test code = 30 IU/L 0-44 1742-6) [facility]: Lipid [id number] 03:19:00 Test Item Value Reference Range Interpretation Comments Cholesterol, Total (test code = 231 mg/dL 100-199 H 2092-3) Triglycerides (test code = 2571-8) 215 mg/dL 0-149 H HDL Cholesterol (test code = 34 mg/dL >39 L 5-9) VLDL Cholesterol Renuka (test code = 43 mg/dL 5-40 H 64798-0) LDL Cholesterol Calc (test code = 154 mg/dL 0-99 H 50407-5) Comment: (test code = 92758-4) [facility] Comp[facility] (14)2019-11-10 03:19:00 Test Item Value Reference Range Interpretation Comments Glucose (test code = 2345-7) 439 mg/dL 65-99 H BUN (test code = 3094-0) 49 mg/dL 6-24 H Creatinine (test code = 2.17 mg/dL 0.76-1.27 H 2160-0) eGFR If NonAfricn Am (test 35 mL/min/1.73 >59 L code = 56336-6) eGFR If Africn Am (test code = 41 mL/min/1.73 >59 L 95703-9) BUN/Creatinine Ratio (test 23 9-20 H code = 3097-3) Sodium (test code = 2951-2) 137 mmol/L 134-144 Potassium (test code = 2823-3) 4.9 mmol/L 3.5-5.2 Chloride (test code = 2075-0) 93 mmol/L 96-106 L Carbon Dioxide, Total (test 29 mmol/L 20-29 code = 2027-9) Calcium (test code = 27980-5) 9.5 mg/dL 8.7-10.2 Protein, Total (test code = 6.5 g/dL 6.0-8.5 2885-2) Albumin (test code = 1751-7) 3.6 g/dL 4.0-5.0 L Globulin, Total (test code = 2.9 g/dL 1.5-4.5 54843-3) A/G Ratio (test code = 1759-0) 1.2 1.2-2.2 Bilirubin, Total (test code = 0.5 mg/dL 0.0-1.2 1975-2) Alkaline Phosphatase (test 103 IU/L 39-117 code = 6768-6) AST (SGOT) (test code = 20 IU/L 0-40 1920-8) ALT (SGPT) (test code = 30 IU/L 0-44 1742-6) [facility] Description: Lipid [id number] 03:19:00 Test Item Value Reference Range Interpretation Comments Cholesterol, Total (test code = 231 mg/dL 100-199 H 3-3) Triglycerides (test code = 2571-8) 215 mg/dL 0-149 H HDL Cholesterol (test code = 34 mg/dL >39 L 2084-9) VLDL Cholesterol Renuka (test code = 43 mg/dL 5-40 H 71453-6) LDL Cholesterol Calc (test code = 154 mg/dL 0-99 H 90775-7) Comment: (test code = 19852-6) [facility] Description: Comp. Metabolic Panel ()2019-11-10 03:19:00 Test Item Value Reference Range Interpretation Comments Glucose (test code = 2345-7) 439 mg/dL 65-99 H BUN (test code = 3094-0) 49 mg/dL 6-24 H Creatinine (test code = 2.17 mg/dL 0.76-1.27 H 2160-0) eGFR If NonAfricn Am (test 35 mL/min/1.73 >59 L code = 39454-1) eGFR If Africn Am (test code = 41 mL/min/1.73 >59 L 95367-3) BUN/Creatinine Ratio (test 23 9-20 H code = 3097-3) Sodium (test code = 2951-2) 137 mmol/L 134-144 Potassium (test code = 2823-3) 4.9 mmol/L 3.5-5.2 Chloride (test code = 2075-0) 93 mmol/L 96-106 L Carbon Dioxide, Total (test 29 mmol/L 20-29 code = 2028-9) Calcium (test code = 16592-4) 9.5 mg/dL 8.7-10.2 Protein, Total (test code = 6.5 g/dL 6.0-8.5 2885-2) Albumin (test code = 1751-7) 3.6 g/dL 4.0-5.0 L Globulin, Total (test code = 2.9 g/dL 1.5-4.5 66458-6) A/G Ratio (test code = 1759-0) 1.2 1.2-2.2 Bilirubin, Total (test code = 0.5 mg/dL 0.0-1.2 1975-2) Alkaline Phosphatase (test 103 IU/L 39-117 code = 6768-6) AST (SGOT) (test code = 20 IU/L 0-40 1920-8) ALT (SGPT) (test code = 30 IU/L 0-44 1742-6) [facility] Description: Lipid [id number] 03:19:00 Test Item Value Reference Range Interpretation Comments Cholesterol, Total (test code = 231 mg/dL 100-199 H 3-3) Triglycerides (test code = 2571-8) 215 mg/dL 0-149 H HDL Cholesterol (test code = 34 mg/dL >39 L 5-9) VLDL Cholesterol Renuka (test code = 43 mg/dL 5-40 H 32304-1) LDL Cholesterol Calc (test code = 154 mg/dL 0-99 H 64144-1) Comment: (test code = 85702-7) [facility] Description: Comp. Metabolic Panel (2019-11-10 03:19:00 Test Item Value Reference Range Interpretation Comments Glucose (test code = 2345-7) 439 mg/dL 65-99 H BUN (test code = 3094-0) 49 mg/dL 6-24 H Creatinine (test code = 2.17 mg/dL 0.76-1.27 H 2160-0) eGFR If NonAfricn Am (test 35 mL/min/1.73 >59 L code = 17463-6) eGFR If Africn Am (test code = 41 mL/min/1.73 >59 L 69235-1) BUN/Creatinine Ratio (test 23 9-20 H code = 3097-3) Sodium (test code = 2951-2) 137 mmol/L 134-144 Potassium (test code = 2823-3) 4.9 mmol/L 3.5-5.2 Chloride (test code = 2075-0) 93 mmol/L 96-106 L Carbon Dioxide, Total (test 29 mmol/L 20-29 code = 8-9) Calcium (test code = 81387-7) 9.5 mg/dL 8.7-10.2 Protein, Total (test code = 6.5 g/dL 6.0-8.5 2885-2) Albumin (test code = 1751-7) 3.6 g/dL 4.0-5.0 L Globulin, Total (test code = 2.9 g/dL 1.5-4.5 71966-1) A/G Ratio (test code = 1759-0) 1.2 1.2-2.2 Bilirubin, Total (test code = 0.5 mg/dL 0.0-1.2 1975-2) Alkaline Phosphatase (test 103 IU/L 39-117 code = 6768-6) AST (SGOT) (test code = 20 IU/L 0-40 1920-8) ALT (SGPT) (test code = 30 IU/L 0-44 1742-6) [facility] Description: Lipid [id number] 03:19:00 Test Item Value Reference Range Interpretation Comments Cholesterol, Total (test code = 231 mg/dL 100-199 H 2092-3) Triglycerides (test code = 2571-8) 215 mg/dL 0-149 H HDL Cholesterol (test code = 34 mg/dL >39 L 2084-9) VLDL Cholesterol Renuka (test code = 43 mg/dL 5-40 H 28501-8) LDL Cholesterol Calc (test code = 154 mg/dL 0-99 H 93316-5) Comment: (test code = 67943-6) [facility]: Comp. Metabolic Panel (14)2019-11-10 03:19:00 Test Item Value Reference Range Interpretation Comments Glucose (test code = 2345-7) 439 mg/dL 65-99 H BUN (test code = 3094-0) 49 mg/dL 6-24 H Creatinine (test code = 2.17 mg/dL 0.76-1.27 H 2160-0) eGFR If NonAfricn Am (test 35 mL/min/1.73 >59 L code = 07946-4) eGFR If Africn Am (test code = 41 mL/min/1.73 >59 L 99675-2) BUN/Creatinine Ratio (test 23 9-20 H code = 3097-3) Sodium (test code = 2951-2) 137 mmol/L 134-144 Potassium (test code = 2823-3) 4.9 mmol/L 3.5-5.2 Chloride (test code = 2075-0) 93 mmol/L 96-106 L Carbon Dioxide, Total (test 29 mmol/L 20-29 code = 8-9) Calcium (test code = 37954-3) 9.5 mg/dL 8.7-10.2 Protein, Total (test code = 6.5 g/dL 6.0-8.5 2885-2) Albumin (test code = 1751-7) 3.6 g/dL 4.0-5.0 L Globulin, Total (test code = 2.9 g/dL 1.5-4.5 59007-3) A/G Ratio (test code = 1759-0) 1.2 1.2-2.2 Bilirubin, Total (test code = 0.5 mg/dL 0.0-1.2 1975-2) Alkaline Phosphatase (test 103 IU/L 39-117 code = 6768-6) AST (SGOT) (test code = 20 IU/L 0-40 1920-8) ALT (SGPT) (test code = 30 IU/L 0-44 1742-6) [facility]: [facility]id [id number] 03:19:00 Test Item Value Reference Range Interpretation Comments Cholesterol, Total (test code = 231 mg/dL 100-199 H 2092-3) Triglycerides (test code = 2571-8) 215 mg/dL 0-149 H HDL Cholesterol (test code = 34 mg/dL >39 L 2084-9) VLDL Cholesterol Renuka (test code = 43 mg/dL 5-40 H 85332-2) LDL Cholesterol Calc (test code = 154 mg/dL 0-99 H 59137-5) Comment: (test code = 17426-5) [facility] Description: Comp. Metabolic Panel (14)2019-11-10 03:19:00 Test Item Value Reference Range Interpretation Comments Glucose (test code = 2345-7) 439 mg/dL 65-99 H BUN (test code = 3094-0) 49 mg/dL 6-24 H Creatinine (test code = 2.17 mg/dL 0.76-1.27 H 2160-0) eGFR If NonAfricn Am (test 35 mL/min/1.73 >59 L code = 31420-4) eGFR If Africn Am (test code = 41 mL/min/1.73 >59 L 17346-1) BUN/Creatinine Ratio (test 23 9-20 H code = 3097-3) Sodium (test code = 2951-2) 137 mmol/L 134-144 Potassium (test code = 2823-3) 4.9 mmol/L 3.5-5.2 Chloride (test code = 2075-0) 93 mmol/L 96-106 L Carbon Dioxide, Total (test 29 mmol/L 20-29 code = 2027-9) Calcium (test code = 26249-2) 9.5 mg/dL 8.7-10.2 Protein, Total (test code = 6.5 g/dL 6.0-8.5 2885-2) Albumin (test code = 1751-7) 3.6 g/dL 4.0-5.0 L Globulin, Total (test code = 2.9 g/dL 1.5-4.5 71017-1) A/G Ratio (test code = 1759-0) 1.2 1.2-2.2 Bilirubin, Total (test code = 0.5 mg/dL 0.0-1.2 1974-2) Alkaline Phosphatase (test 103 IU/L 39-117 code = 6768-6) AST (SGOT) (test code = 20 IU/L 0-40 1920-8) ALT (SGPT) (test code = 30 IU/L 0-44 1742-6) [facility] Description: Lipid [id number] 03:19:00 Test Item Value Reference Range Interpretation Comments Cholesterol, Total (test code = 231 mg/dL 100-199 H 2092-3) Triglycerides (test code = 2571-8) 215 mg/dL 0-149 H HDL Cholesterol (test code = 34 mg/dL >39 L 2084-9) VLDL Cholesterol Renuka (test code = 43 mg/dL 5-40 H 45407-8) LDL Cholesterol Calc (test code = 154 mg/dL 0-99 H 42380-3) Comment: (test code = 92294-9) [facility] Description: Comp. Metabolic Panel (14)2019-11-10 03:19:00 Test Item Value Reference Range Interpretation Comments Glucose (test code = 2345-7) 439 mg/dL 65-99 H BUN (test code = 3094-0) 49 mg/dL 6-24 H Creatinine (test code = 2.17 mg/dL 0.76-1.27 H 2160-0) eGFR If NonAfricn Am (test 35 mL/min/1.73 >59 L code = 31582-8) eGFR If Africn Am (test code = 41 mL/min/1.73 >59 L 21913-2) BUN/Creatinine Ratio (test 23 9-20 H code = 3097-3) Sodium (test code = 2951-2) 137 mmol/L 134-144 Potassium (test code = 2823-3) 4.9 mmol/L 3.5-5.2 Chloride (test code = 2075-0) 93 mmol/L 96-106 L Carbon Dioxide, Total (test 29 mmol/L 20-29 code = 2027-9) Calcium (test code = 71165-8) 9.5 mg/dL 8.7-10.2 Protein, Total (test code = 6.5 g/dL 6.0-8.5 2885-2) Albumin (test code = 1751-7) 3.6 g/dL 4.0-5.0 L Globulin, Total (test code = 2.9 g/dL 1.5-4.5 18171-6) A/G Ratio (test code = 1759-0) 1.2 1.2-2.2 Bilirubin, Total (test code = 0.5 mg/dL 0.0-1.2 1975-2) Alkaline Phosphatase (test 103 IU/L 39-117 code = 6768-6) AST (SGOT) (test code = 20 IU/L 0-40 1920-8) ALT (SGPT) (test code = 30 IU/L 0-44 1742-6) [facility] Description: Lipid [id number] 03:19:00 Test Item Value Reference Range Interpretation Comments Cholesterol, Total (test code = 231 mg/dL 100-199 H 2093-3) Triglycerides (test code = 2571-8) 215 mg/dL 0-149 H HDL Cholesterol (test code = 34 mg/dL >39 L 5-9) VLDL Cholesterol Renuka (test code = 43 mg/dL 5-40 H 08230-0) LDL Cholesterol Calc (test code = 154 mg/dL 0-99 H 30016-6) Comment: (test code = 94506-0) [facility] Description: Comp. Metabolic Panel ()2019-11-10 03:19:00 Test Item Value Reference Range Interpretation Comments Glucose (test code = 2345-7) 439 mg/dL 65-99 H BUN (test code = 3094-0) 49 mg/dL 6-24 H Creatinine (test code = 2.17 mg/dL 0.76-1.27 H 2160-0) eGFR If NonAfricn Am (test 35 mL/min/1.73 >59 L code = 53099-1) eGFR If Africn Am (test code = 41 mL/min/1.73 >59 L 95921-5) BUN/Creatinine Ratio (test 23 9-20 H code = 3097-3) Sodium (test code = 2951-2) 137 mmol/L 134-144 Potassium (test code = 2823-3) 4.9 mmol/L 3.5-5.2 Chloride (test code = 2075-0) 93 mmol/L 96-106 L Carbon Dioxide, Total (test 29 mmol/L 20-29 code = 2028-9) Calcium (test code = 27740-5) 9.5 mg/dL 8.7-10.2 Protein, Total (test code = 6.5 g/dL 6.0-8.5 2885-2) Albumin (test code = 1751-7) 3.6 g/dL 4.0-5.0 L Globulin, Total (test code = 2.9 g/dL 1.5-4.5 60043-0) A/G Ratio (test code = 1759-0) 1.2 1.2-2.2 Bilirubin, Total (test code = 0.5 mg/dL 0.0-1.2 1975-2) Alkaline Phosphatase (test 103 IU/L 39-117 code = 6768-6) AST (SGOT) (test code = 20 IU/L 0-40 1920-8) ALT (SGPT) (test code = 30 IU/L 0-44 1742-6) [facility]id [id number] 03:19:00 Test Item Value Reference Range Interpretation Comments Cholesterol, Total (test code = 231 mg/dL 100-199 H 2093-3) Triglycerides (test code = 2571-8) 215 mg/dL 0-149 H HDL Cholesterol (test code = 34 mg/dL >39 L 5-9) VLDL Cholesterol Renuka (test code = 43 mg/dL 5-40 H 52387-6) LDL Cholesterol Calc (test code = 154 mg/dL 0-99 H 69401-8) Comment: (test code = 43628-6) [facility] (14)2019-11-10 03:19:00 Test Item Value Reference Range Interpretation Comments Glucose (test code = 2345-7) 439 mg/dL 65-99 H BUN (test code = 3094-0) 49 mg/dL 6-24 H Creatinine (test code = 2.17 mg/dL 0.76-1.27 H 2160-0) eGFR If NonAfricn Am (test 35 mL/min/1.73 >59 L code = 06252-8) eGFR If Africn Am (test code = 41 mL/min/1.73 >59 L 32609-7) BUN/Creatinine Ratio (test 23 9-20 H code = 3097-3) Sodium (test code = 2951-2) 137 mmol/L 134-144 Potassium (test code = 2823-3) 4.9 mmol/L 3.5-5.2 Chloride (test code = 2075-0) 93 mmol/L 96-106 L Carbon Dioxide, Total (test 29 mmol/L 20-29 code = 2028-9) Calcium (test code = 06414-3) 9.5 mg/dL 8.7-10.2 Protein, Total (test code = 6.5 g/dL 6.0-8.5 2885-2) Albumin (test code = 1751-7) 3.6 g/dL 4.0-5.0 L Globulin, Total (test code = 2.9 g/dL 1.5-4.5 66012-3) A/G Ratio (test code = 1759-0) 1.2 1.2-2.2 Bilirubin, Total (test code = 0.5 mg/dL 0.0-1.2 1975-2) Alkaline Phosphatase (test 103 IU/L 39-117 code = 6768-6) AST (SGOT) (test code = 20 IU/L 0-40 1920-8) ALT (SGPT) (test code = 30 IU/L 0-44 1742-6) [facility] Description: Lipid [id number] 03:19:00 Test Item Value Reference Range Interpretation Comments Cholesterol, Total (test code = 231 mg/dL 100-199 H 2092-3) Triglycerides (test code = 2571-8) 215 mg/dL 0-149 H HDL Cholesterol (test code = 34 mg/dL >39 L 2084-9) VLDL Cholesterol Renuka (test code = 43 mg/dL 5-40 H 03402-0) LDL Cholesterol Calc (test code = 154 mg/dL 0-99 H 78670-9) Comment: (test code = 46977-7) [facility] Description: Comp. Metabolic Panel (2019-11-10 03:19:00 Test Item Value Reference Range Interpretation Comments Glucose (test code = 2345-7) 439 mg/dL 65-99 H BUN (test code = 3094-0) 49 mg/dL 6-24 H Creatinine (test code = 2.17 mg/dL 0.76-1.27 H 2160-0) eGFR If NonAfricn Am (test 35 mL/min/1.73 >59 L code = 96233-8) eGFR If Africn Am (test code = 41 mL/min/1.73 >59 L 43809-8) BUN/Creatinine Ratio (test 23 9-20 H code = 3097-3) Sodium (test code = 2951-2) 137 mmol/L 134-144 Potassium (test code = 2823-3) 4.9 mmol/L 3.5-5.2 Chloride (test code = 2075-0) 93 mmol/L 96-106 L Carbon Dioxide, Total (test 29 mmol/L 20-29 code = 2028-9) Calcium (test code = 88714-4) 9.5 mg/dL 8.7-10.2 Protein, Total (test code = 6.5 g/dL 6.0-8.5 2885-2) Albumin (test code = 1751-7) 3.6 g/dL 4.0-5.0 L Globulin, Total (test code = 2.9 g/dL 1.5-4.5 26673-8) A/G Ratio (test code = 1759-0) 1.2 [...] (test 35 mL/min/1.73 >59 L code = 43859-1) eGFR If Africn Am (test code = 41 mL/min/1.73 >59 L 32353-0) BUN/Creatinine Ratio (test 23 9-20 H code = 3097-3) Sodium (test code = 2951-2) 137 mmol/L 134-144 Potassium (test code = 2823-3) 4.9 mmol/L 3.5-5.2 Chloride (test code = 2075-0) 93 mmol/L 96-106 L Carbon Dioxide, Total (test 29 mmol/L 20-29 code = 2028-9) Calcium (test code = 39607-6) 9.5 mg/dL 8.7-10.2 Protein, Total (test code = 6.5 g/dL 6.0-8.5 2885-2) Albumin (test code = 1751-7) 3.6 g/dL 4.0-5.0 L Globulin, Total (test code = 2.9 g/dL 1.5-4.5 79879-6) A/G Ratio (test code = 1759-0) 1.2 1.2-2.2 Bilirubin, Total (test code = 0.5 mg/dL 0.0-1.2 1975-2) Alkaline Phosphatase (test 103 IU/L 39-117 code = 6768-6) AST (SGOT) (test code = 20 IU/L 0-40 1920-8) ALT (SGPT) (test code = 30 IU/L 0-44 1742-6) [facility] Description: Lipid [id number] 03:19:00 Test Item Value Reference Range Interpretation Comments Cholesterol, Total (test code = 231 mg/dL 100-199 H 3-3) Triglycerides (test code = 2571-8) 215 mg/dL 0-149 H HDL Cholesterol (test code = 34 mg/dL >39 L 5-9) VLDL Cholesterol Renuka (test code = 43 mg/dL 5-40 H 55920-5) LDL Cholesterol Calc (test code = 154 mg/dL 0-99 H 17101-7) Comment: (test code = 27012-7) [facility] Description: Lipid [id number] 03:19:00 Test Item Value Reference Range Interpretation Comments Cholesterol, Total (test code = 231 mg/dL 100-199 H 2093-3) Triglycerides (test code = 2571-8) 215 mg/dL 0-149 H HDL Cholesterol (test code = 34 mg/dL >39 L 2084-9) VLDL Cholesterol Renuka (test code = 43 mg/dL 5-40 H 94585-0) LDL Cholesterol Calc (test code = 154 mg/dL 0-99 H 35935-3) Comment: (test code = 09926-3) [facility] Description: Comp. Metabolic Panel ()2019-11-10 03:19:00 Test Item Value Reference Range Interpretation Comments Glucose (test code = 2345-7) 439 mg/dL 65-99 H BUN (test code = 3094-0) 49 mg/dL 6-24 H Creatinine (test code = 2.17 mg/dL 0.76-1.27 H 2160-0) eGFR If NonAfricn Am (test 35 mL/min/1.73 >59 L code = 93357-6) eGFR If Africn Am (test code = 41 mL/min/1.73 >59 L 79106-7) BUN/Creatinine Ratio (test 23 9-20 H code = 3097-3) Sodium (test code = 2951-2) 137 mmol/L 134-144 Potassium (test code = 2823-3) 4.9 mmol/L 3.5-5.2 Chloride (test code = 2075-0) 93 mmol/L 96-106 L Carbon Dioxide, Total (test 29 mmol/L 20-29 code = 2027-9) Calcium (test code = 31503-7) 9.5 mg/dL 8.7-10.2 Protein, Total (test code = 6.5 g/dL 6.0-8.5 2885-2) Albumin (test code = 1751-7) 3.6 g/dL 4.0-5.0 L Globulin, Total (test code = 2.9 g/dL 1.5-4.5 31151-5) A/G Ratio (test code = 1759-0) 1.2 1.2-2.2 Bilirubin, Total (test code = 0.5 mg/dL 0.0-1.2 1974-2) Alkaline Phosphatase (test 103 IU/L 39-117 code = 6768-6) AST (SGOT) (test code = 20 IU/L 0-40 1920-8) ALT (SGPT) (test code = 30 IU/L 0-44 1742-6) [facility] Lipid [id number] 03:19:00 Test Item Value Reference Range Interpretation Comments Cholesterol, Total (test code = 231 mg/dL 100-199 H 2093-3) Triglycerides (test code = 2571-8) 215 mg/dL 0-149 H HDL Cholesterol (test code = 34 mg/dL >39 L 2085-9) VLDL Cholesterol Renuka (test code = 43 mg/dL 5-40 H 82955-7) LDL Cholesterol Calc (test code = 154 mg/dL 0-99 H 89868-4) Comment: (test code = 29364-7) [facility] Comp. Metabolic Panel (14)2019-11-10 03:19:00 Test Item Value Reference Range Interpretation Comments Glucose (test code = 2345-7) 439 mg/dL 65-99 H BUN (test code = 3094-0) 49 mg/dL 6-24 H Creatinine (test code = 2.17 mg/dL 0.76-1.27 H 2160-0) eGFR If NonAfricn Am (test 35 mL/min/1.73 >59 L code = 01853-0) eGFR If Africn Am (test code = 41 mL/min/1.73 >59 L 07261-8) BUN/Creatinine Ratio (test 23 9-20 H code = 3097-3) Sodium (test code = 2951-2) 137 mmol/L 134-144 Potassium (test code = 2823-3) 4.9 mmol/L 3.5-5.2 Chloride (test code = 2075-0) 93 mmol/L 96-106 L Carbon Dioxide, Total (test 29 mmol/L 20-29 code = 8-9) Calcium (test code = 20558-0) 9.5 mg/dL 8.7-10.2 Protein, Total (test code = 6.5 g/dL 6.0-8.5 2885-2) Albumin (test code = 1751-7) 3.6 g/dL 4.0-5.0 L Globulin, Total (test code = 2.9 g/dL 1.5-4.5 69547-7) A/G Ratio (test code = 1759-0) 1.2 1.2-2.2 Bilirubin, Total (test code = 0.5 mg/dL 0.0-1.2 1974-2) Alkaline Phosphatase (test 103 IU/L 39-117 code = 6768-6) AST (SGOT) (test code = 20 IU/L 0-40 1920-8) ALT (SGPT) (test code = 30 IU/L 0-44 1742-6) [facility]: Lipid [id number] 03:19:00 Test Item Value Reference Range Interpretation Comments Cholesterol, Total (test code = 231 mg/dL 100-199 H 2093-3) Triglycerides (test code = 2571-8) 215 mg/dL 0-149 H HDL Cholesterol (test code = 34 mg/dL >39 L 2084-9) VLDL Cholesterol Renuka (test code = 43 mg/dL 5-40 H 89018-8) LDL Cholesterol Calc (test code = 154 mg/dL 0-99 H 73047-9) Comment: (test code = 28561-8) [facility]: Comp. Metabolic Panel (14)2019-11-10 03:19:00 Test Item Value Reference Range Interpretation Comments Glucose (test code = 2345-7) 439 mg/dL 65-99 H BUN (test code = 3094-0) 49 mg/dL 6-24 H Creatinine (test code = 2.17 mg/dL 0.76-1.27 H 2160-0) eGFR If NonAfricn Am (test 35 mL/min/1.73 >59 L code = 11744-5) eGFR If Africn Am (test code = 41 mL/min/1.73 >59 L 92050-1) BUN/Creatinine Ratio (test 23 9-20 H code = 3097-3) Sodium (test code = 2951-2) 137 mmol/L 134-144 Potassium (test code = 2823-3) 4.9 mmol/L 3.5-5.2 Chloride (test code = 2075-0) 93 mmol/L 96-106 L Carbon Dioxide, Total (test 29 mmol/L 20-29 code = 8-9) Calcium (test code = 12540-1) 9.5 mg/dL 8.7-10.2 Protein, Total (test code = 6.5 g/dL 6.0-8.5 2885-2) Albumin (test code = 1751-7) 3.6 g/dL 4.0-5.0 L Globulin, Total (test code = 2.9 g/dL 1.5-4.5 03254-1) A/G Ratio (test code = 1759-0) 1.2 1.2-2.2 Bilirubin, Total (test code = 0.5 mg/dL 0.0-1.2 1975-2) Alkaline Phosphatase (test 103 IU/L 39-117 code = 6768-6) AST (SGOT) (test code = 20 IU/L 0-40 1920-8) ALT (SGPT) (test code = 30 IU/L 0-44 1742-6) [facility]: Lipid [id number] 03:19:00 Test Item Value Reference Range Interpretation Comments Cholesterol, Total (test code = 231 mg/dL 100-199 H 3-3) Triglycerides (test code = 2571-8) 215 mg/dL 0-149 H HDL Cholesterol (test code = 34 mg/dL >39 L 5-9) VLDL Cholesterol Renuka (test code = 43 mg/dL 5-40 H 70996-9) LDL Cholesterol Calc (test code = 154 mg/dL 0-99 H 29523-7) Comment: (test code = 14434-5) [facility] Metabolic Panel (14)2019-11-10 03:19:00 Test Item Value Reference Range Interpretation Comments Glucose (test code = 2345-7) 439 mg/dL 65-99 H BUN (test code = 3094-0) 49 mg/dL 6-24 H Creatinine (test code = 2.17 mg/dL 0.76-1.27 H 2160-0) eGFR If NonAfricn Am (test 35 mL/min/1.73 >59 L code = 73691-8) eGFR If Africn Am (test code = 41 mL/min/1.73 >59 L 89444-3) BUN/Creatinine Ratio (test 23 9-20 H code = 3097-3) Sodium (test code = 2951-2) 137 mmol/L 134-144 Potassium (test code = 2823-3) 4.9 mmol/L 3.5-5.2 Chloride (test code = 2075-0) 93 mmol/L 96-106 L Carbon Dioxide, Total (test 29 mmol/L 20-29 code = 2027-9) Calcium (test code = 27601-2) 9.5 mg/dL 8.7-10.2 Protein, Total (test code = 6.5 g/dL 6.0-8.5 2885-2) Albumin (test code = 1751-7) 3.6 g/dL 4.0-5.0 L Globulin, Total (test code = 2.9 g/dL 1.5-4.5 56160-9) A/G Ratio (test code = 1759-0) 1.2 1.2-2.2 Bilirubin, Total (test code = 0.5 mg/dL 0.0-1.2 1975-2) Alkaline Phosphatase (test 103 IU/L 39-117 code = 6768-6) AST (SGOT) (test code = 20 IU/L 0-40 1920-8) ALT (SGPT) (test code = 30 IU/L 0-44 1742-6) [facility] Description: Lipid [id number] 03:19:00 Test Item Value Reference Range Interpretation Comments Cholesterol, Total (test code = 231 mg/dL 100-199 H 3-3) Triglycerides (test code = 2571-8) 215 mg/dL 0-149 H HDL Cholesterol (test code = 34 mg/dL >39 L 2084-9) VLDL Cholesterol Renuka (test code = 43 mg/dL 5-40 H 50456-3) LDL Cholesterol Calc (test code = 154 mg/dL 0-99 H 54741-8) Comment: (test code = 86166-0) [facility] Description: Comp. Metabolic Panel ()2019-11-10 03:19:00 Test Item Value Reference Range Interpretation Comments Glucose (test code = 2345-7) 439 mg/dL 65-99 H BUN (test code = 3094-0) 49 mg/dL 6-24 H Creatinine (test code = 2.17 mg/dL 0.76-1.27 H 2160-0) eGFR If NonAfricn Am (test 35 mL/min/1.73 >59 L code = 01586-6) eGFR If Africn Am (test code = 41 mL/min/1.73 >59 L 67183-5) BUN/Creatinine Ratio (test 23 9-20 H code = 3097-3) Sodium (test code = 2951-2) 137 mmol/L 134-144 Potassium (test code = 2823-3) 4.9 mmol/L 3.5-5.2 Chloride (test code = 2075-0) 93 mmol/L 96-106 L Carbon Dioxide, Total (test 29 mmol/L 20-29 code = 2028-9) Calcium (test code = 99621-6) 9.5 mg/dL 8.7-10.2 Protein, Total (test code = 6.5 g/dL 6.0-8.5 2885-2) Albumin (test code = 1751-7) 3.6 g/dL 4.0-5.0 L Globulin, Total (test code = 2.9 g/dL 1.5-4.5 39771-3) A/G Ratio (test code = 1759-0) 1.2 1.2-2.2 Bilirubin, Total (test code = 0.5 mg/dL 0.0-1.2 1975-2) Alkaline Phosphatase (test 103 IU/L 39-117 code = 6768-6) AST (SGOT) (test code = 20 IU/L 0-40 1920-8) ALT (SGPT) (test code = 30 IU/L 0-44 1742-6) [facility] Description: Lipid [id number] 03:19:00 Test Item Value Reference Range Interpretation Comments Cholesterol, Total (test code = 231 mg/dL 100-199 H 3-3) Triglycerides (test code = 2571-8) 215 mg/dL 0-149 H HDL Cholesterol (test code = 34 mg/dL >39 L 5-9) VLDL Cholesterol Renuka (test code = 43 mg/dL 5-40 H 86923-3) LDL Cholesterol Calc (test code = 154 mg/dL 0-99 H 81137-4) Comment: (test code = 48511-2) [facility] Description: Comp. Metabolic Panel (2019-11-10 03:19:00 Test Item Value Reference Range Interpretation Comments Glucose (test code = 2345-7) 439 mg/dL 65-99 H BUN (test code = 3094-0) 49 mg/dL 6-24 H Creatinine (test code = 2.17 mg/dL 0.76-1.27 H 2160-0) eGFR If NonAfricn Am (test 35 mL/min/1.73 >59 L code = 30717-3) eGFR If Africn Am (test code = 41 mL/min/1.73 >59 L 28794-5) BUN/Creatinine Ratio (test 23 9-20 H code = 3097-3) Sodium (test code = 2951-2) 137 mmol/L 134-144 Potassium (test code = 2823-3) 4.9 mmol/L 3.5-5.2 Chloride (test code = 2075-0) 93 mmol/L 96-106 L Carbon Dioxide, Total (test 29 mmol/L 20-29 code = 8-9) Calcium (test code = 13675-9) 9.5 mg/dL 8.7-10.2 Protein, Total (test code = 6.5 g/dL 6.0-8.5 2885-2) Albumin (test code = 1751-7) 3.6 g/dL 4.0-5.0 L Globulin, Total (test code = 2.9 g/dL 1.5-4.5 88477-8) A/G Ratio (test code = 1759-0) 1.2 1.2-2.2 Bilirubin, Total (test code = 0.5 mg/dL 0.0-1.2 1974-2) Alkaline Phosphatase (test 103 IU/L 39-117 code = 6768-6) AST (SGOT) (test code = 20 IU/L 0-40 1920-8) ALT (SGPT) (test code = 30 IU/L 0-44 1742-6) [facility] Description: Lipid [id number] 03:19:00 Test Item Value Reference Range Interpretation Comments Cholesterol, Total (test code = 231 mg/dL 100-199 H 2092-3) Triglycerides (test code = 2571-8) 215 mg/dL 0-149 H HDL Cholesterol (test code = 34 mg/dL >39 L 2084-9) VLDL Cholesterol Renuka (test code = 43 mg/dL 5-40 H 83421-8) LDL Cholesterol Calc (test code = 154 mg/dL 0-99 H 65466-3) Comment: (test code = 30403-8) [facility]: Comp. Metabolic Panel (14)2019-11-10 03:19:00 Test Item Value Reference Range Interpretation Comments Glucose (test code = 2345-7) 439 mg/dL 65-99 H BUN (test code = 3094-0) 49 mg/dL 6-24 H Creatinine (test code = 2.17 mg/dL 0.76-1.27 H 2160-0) eGFR If NonAfricn Am (test 35 mL/min/1.73 >59 L code = 09965-1) eGFR If Africn Am (test code = 41 mL/min/1.73 >59 L 25091-7) BUN/Creatinine Ratio (test 23 9-20 H code = 3097-3) Sodium (test code = 2951-2) 137 mmol/L 134-144 Potassium (test code = 2823-3) 4.9 mmol/L 3.5-5.2 Chloride (test code = 2075-0) 93 mmol/L 96-106 L Carbon Dioxide, Total (test 29 mmol/L 20-29 code = 8-9) Calcium (test code = 20458-6) 9.5 mg/dL 8.7-10.2 Protein, Total (test code = 6.5 g/dL 6.0-8.5 2885-2) Albumin (test code = 1751-7) 3.6 g/dL 4.0-5.0 L Globulin, Total (test code = 2.9 g/dL 1.5-4.5 08076-1) A/G Ratio (test code = 1759-0) 1.2 1.2-2.2 Bilirubin, Total (test code = 0.5 mg/dL 0.0-1.2 1975-2) Alkaline Phosphatase (test 103 IU/L 39-117 code = 6768-6) AST (SGOT) (test code = 20 IU/L 0-40 1920-8) ALT (SGPT) (test code = 30 IU/L 0-44 1742-6) [facility] Description: Lipid [id number] 03:19:00 Test Item Value Reference Range Interpretation Comments Cholesterol, Total (test code = 231 mg/dL 100-199 H 2092-3) Triglycerides (test code = 2571-8) 215 mg/dL 0-149 H HDL Cholesterol (test code = 34 mg/dL >39 L 2084-9) VLDL Cholesterol Renuka (test code = 43 mg/dL 5-40 H 09474-4) LDL Cholesterol Calc (test code = 154 mg/dL 0-99 H 56757-6) Comment: (test code = 94003-2) [facility] Description: Comp. Metabolic Panel (14)2019-11-10 03:19:00 Test Item Value Reference Range Interpretation Comments Glucose (test code = 2345-7) 439 mg/dL 65-99 H BUN (test code = 3094-0) 49 mg/dL 6-24 H Creatinine (test code = 2.17 mg/dL 0.76-1.27 H 2160-0) eGFR If NonAfricn Am (test 35 mL/min/1.73 >59 L code = 22911-5) eGFR If Africn Am (test code = 41 mL/min/1.73 >59 L 79437-3) BUN/Creatinine Ratio (test 23 9-20 H code = 3097-3) Sodium (test code = 2951-2) 137 mmol/L 134-144 Potassium (test code = 2823-3) 4.9 mmol/L 3.5-5.2 Chloride (test code = 2075-0) 93 mmol/L 96-106 L Carbon Dioxide, Total (test 29 mmol/L 20-29 code = 2027-9) Calcium (test code = 29194-1) 9.5 mg/dL 8.7-10.2 Protein, Total (test code = 6.5 g/dL 6.0-8.5 2885-2) Albumin (test code = 1751-7) 3.6 g/dL 4.0-5.0 L Globulin, Total (test code = 2.9 g/dL 1.5-4.5 02453-5) A/G Ratio (test code = 1759-0) 1.2 1.2-2.2 Bilirubin, Total (test code = 0.5 mg/dL 0.0-1.2 1975-2) Alkaline Phosphatase (test 103 IU/L 39-117 code = 6768-6) AST (SGOT) (test code = 20 IU/L 0-40 1920-8) ALT (SGPT) (test code = 30 IU/L 0-44 1742-6) [facility] Description: Lipid [id number] 03:19:00 Test Item Value Reference Range Interpretation Comments Cholesterol, Total (test code = 231 mg/dL 100-199 H 2093-3) Triglycerides (test code = 2571-8) 215 mg/dL 0-149 H HDL Cholesterol (test code = 34 mg/dL >39 L 2085-9) VLDL Cholesterol Renuka (test code = 43 mg/dL 5-40 H 21151-8) LDL Cholesterol Calc (test code = 154 mg/dL 0-99 H 69581-1) Comment: (test code = 46509-8) [facility], CHEST, 1 VIEW, NON [id number] 23:44:00Reason for exam:- >SHORTNESS OF BREATHReason for [...] pg/mL 0-100 H (test code = 700) Flat Screen Worker ID - LACIE DE LA VEGA [id number] 23:17:00 Test Item Value Reference Range Interpretation [...] failure, acidosis, acute neurological disease, and persistent tachyarrhythmia.Flat Screen Worker ID - LCAIE BCOMPREHENSIVE METABOLIC [id number] 23:11:00 Test Item Value Reference Range Interpretation [...] S NOT APPLICABLE FOR DIALYSIS PATIEN TS. Flat Screen Worker ID - LACIE BCBC W/PLT COUNT & AUTO [id number] 22:51:00 Test Item Value Reference Range Interpretation [...] = 2801) Panel Description: Hemoglobin A1c/Hemoglobin.total in [id number] 09:26:00 Test Item Value Reference Range Interpretation Comments Hemoglobin A1c (test code 10.1 % 4.8-5.6 H = 4548-4) . Prediabetes: 5. 7 - 6.4 Diabete s: >6.4 Glycemi c control for niall lts with diabetes: <7.0

P erforme d by:
[facility] [place] ([place])

[facility] Description: Hemoglobin A1c/Hemoglobin.total in Blood 2019-07-04 09:26:00 Test Item Value Reference Range Interpretation Comments Hemoglobin A1c (test code 10.1 % 4.8-5.6 H = 4548-4) . Prediabetes: 5. 7 - 6.4 Diabete s: >6.4 Glycemi c control for niall lts with diabetes: <7.0

P erforme d by:
[facility] [place] ([place])

[facility] Description: Hemoglobin A1c/Hemoglobin.total in Blood 2019-07-04 09:26:00 Test Item Value Reference Range Interpretation Comments Hemoglobin A1c (test code 10.1 % 4.8-5.6 H = 4548-4) . Prediabetes: 5. 7 - 6.4 Diabete s: >6.4 Glycemi c control for niall lts with diabetes: <7.0

P erforme d by:
[facility] [place] ([place])

[facility] Description: Hemoglobin A1c/Hemoglobin.total in Blood 2019-07-04 09:26:00 Test Item Value Reference Range Interpretation Comments Hemoglobin A1c (test code 10.1 % 4.8-5.6 H = 4548-4) . Prediabetes: 5. 7 - 6.4 Diabete s: >6.4 Glycemi c control for niall lts with diabetes: <7.0

P erforme d by:
[facility] [place] ([place])

[facility] Description: Hemoglobin A1c/Hemoglobin.total in Blood 2019-07-04 09:26:00 Test Item Value Reference Range Interpretation Comments Hemoglobin A1c (test code 10.1 % 4.8-5.6 H = 4548-4) . Prediabetes: 5. 7 - 6.4 Diabete s: >6.4 Glycemi c control for niall lts with diabetes: <7.0

P erforme d by:
[facility] [place] ([place])

[facility] Description: Hemoglobin A1c/Hemoglobin.total in Blood 2019-07-04 09:26:00 Test Item Value Reference Range Interpretation Comments Hemoglobin A1c (test code 10.1 % 4.8-5.6 H = 4548-4) . Prediabetes: 5. 7 - 6.4 Diabete s: >6.4 Glycemi c control for niall lts with diabetes: <7.0

P erforme d by:
[facility] ([place])

[facility] Description: Hemoglobin A1c/Hemoglobin.total in Blood 2019-07-04 09:26:00 Test Item Value Reference Range Interpretation Comments Hemoglobin A1c (test code 10.1 % 4.8-5.6 H = 4548-4) . Prediabetes: 5. 7 - 6.4 Diabete s: >6.4 Glycemi c control for niall lts with diabetes: <7.0

P erforme d by:
[facility] [place] ([place])

[facility] Description: Hemoglobin A1c/Hemoglobin.total in Blood 2019-07-04 09:26:00 Test Item Value Reference Range Interpretation Comments Hemoglobin A1c (test code 10.1 % 4.8-5.6 H = 4548-4) . Prediabetes: 5. 7 - 6.4 Diabete s: >6.4 Glycemi c control for niall lts with diabetes: <7.0

P erforme d by:
[facility] [place] ([place])

[facility] Description: Hemoglobin A1c/Hemoglobin.total in Blood 2019-07-04 09:26:00 Test Item Value Reference Range Interpretation Comments Hemoglobin A1c (test code 10.1 % 4.8-5.6 H = 4548-4) . Prediabetes: 5. 7 - 6.4 Diabete s: >6.4 Glycemi c control for niall lts with diabetes: <7.0

P erforme d by:
[facility] [place] ([place])

[facility] Description: Hemoglobin A1c/Hemoglobin.total in Blood 2019-07-04 09:26:00 Test Item Value Reference Range Interpretation Comments Hemoglobin A1c (test code 10.1 % 4.8-5.6 H = 4548-4) . Prediabetes: 5. 7 - 6.4 Diabete s: >6.4 Glycemi c control for niall lts with diabetes: <7.0

P erforme d by:
[facility] ([place])

[facility] Description: Hemoglobin A1c/Hemoglobin.total in Blood 2019-07-04 09:26:00 Test Item Value Reference Range Interpretation Comments Hemoglobin A1c (test code 10.1 % 4.8-5.6 H = 4548-4) . Prediabetes: 5. 7 - 6.4 Diabete s: >6.4 Glycemi c control for niall lts with diabetes: <7.0

P erforme d by:
[facility] [place] ([place])

[facility] Description: Hemoglobin A1c/Hemoglobin.total in Blood 2019-07-04 09:26:00 Test Item Value Reference Range Interpretation Comments Hemoglobin A1c (test code 10.1 % 4.8-5.6 H = 4548-4) . Prediabetes: 5. 7 - 6.4 Diabete s: >6.4 Glycemi c control for niall lts with diabetes: <7.0

P erforme d by:
[facility] [place] ([place])

[facility] Description: Hemoglobin A1c/Hemoglobin.total in Blood 2019-07-04 09:26:00 Test Item Value Reference Range Interpretation Comments Hemoglobin A1c (test code 10.1 % 4.8-5.6 H = 4548-4) . Prediabetes: 5. 7 - 6.4 Diabete s: >6.4 Glycemi c control for niall lts with diabetes: <7.0

P erforme d by:
[facility] [place] ([place])

[facility] Description: Hemoglobin A1c/Hemoglobin.total in Blood 2019-07-04 09:26:00 Test Item Value Reference Range Interpretation Comments Hemoglobin A1c (test code 10.1 % 4.8-5.6 H = 4548-4) . Prediabetes: 5. 7 - 6.4 Diabete s: >6.4 Glycemi c control for niall lts with diabetes: <7.0

P erforme d by:
[facility] ([place])

[facility] Description: Hemoglobin A1c/Hemoglobin.total in Blood 2019-07-04 09:26:00 Test Item Value Reference Range Interpretation Comments Hemoglobin A1c (test code 10.1 % 4.8-5.6 H = 4548-4) . Prediabetes: 5. 7 - 6.4 Diabete s: >6.4 Glycemi c control for niall lts with diabetes: <7.0

P erforme d by:
[facility] [place] ([place])

[facility] Description: Hemoglobin A1c/Hemoglobin.total in Blood 2019-07-04 09:26:00 Test Item Value Reference Range Interpretation Comments Hemoglobin A1c (test code 10.1 % 4.8-5.6 H = 4548-4) . Prediabetes: 5. 7 - 6.4 Diabete s: >6.4 Glycemi c control for niall lts with diabetes: <7.0

P erforme d by:
[facility] [place] ([place])

[facility] Description: Hemoglobin A1c/Hemoglobin.total in Blood 2019-07-04 09:26:00 Test Item Value Reference Range Interpretation Comments Hemoglobin A1c (test code 10.1 % 4.8-5.6 H = 4548-4) . Prediabetes: 5. 7 - 6.4 Diabete s: >6.4 Glycemi c control for niall lts with diabetes: <7.0

P erforme d by:
[facility] [place] ([place])

[facility] Description: Hemoglobin A1c/Hemoglobin.total in Blood 2019-07-04 09:26:00 Test Item Value Reference Range Interpretation Comments Hemoglobin A1c (test code 10.1 % 4.8-5.6 H = 4548-4) . Prediabetes: 5. 7 - 6.4 Diabete s: >6.4 Glycemi c control for niall lts with diabetes: <7.0

P erforme d by:
[facility] ([place])

[facility] Description: Hemoglobin A1c/Hemoglobin.total in Blood 2019-07-04 09:26:00 Test Item Value Reference Range Interpretation Comments Hemoglobin A1c (test code 10.1 % 4.8-5.6 H = 4548-4) . Prediabetes: 5. 7 - 6.4 Diabete s: >6.4 Glycemi c control for niall lts with diabetes: <7.0

P erforme d by:
[facility] [place] ([place])

[facility] Description: Hemoglobin A1c/Hemoglobin.total in Blood 2019-07-04 09:26:00 Test Item Value Reference Range Interpretation Comments Hemoglobin A1c (test code 10.1 % 4.8-5.6 H = 4548-4) . Prediabetes: 5. 7 - 6.4 Diabete s: >6.4 Glycemi c control for niall lts with diabetes: <7.0

P erforme d by:
[facility] [place] ([place])

[facility] Description: Hemoglobin A1c/Hemoglobin.total in Blood 2019-07-04 09:26:00 Test Item Value Reference Range Interpretation Comments Hemoglobin A1c (test code 10.1 % 4.8-5.6 H = 4548-4) . Prediabetes: 5. 7 - 6.4 Diabete s: >6.4 Glycemi c control for niall lts with diabetes: <7.0

P erforme d by:
[facility] [place] ([place])

[facility] Description: Hemoglobin A1c/Hemoglobin.total in Blood 2019-07-04 09:26:00 Test Item Value Reference Range Interpretation Comments Hemoglobin A1c (test code 10.1 % 4.8-5.6 H = 4548-4) . Prediabetes: 5. 7 - 6.4 Diabete s: >6.4 Glycemi c control for niall lts with diabetes: <7.0

P erforme d by:
[facility] ([place])

[facility] Description: Hemoglobin A1c/Hemoglobin.total in Blood 2019-07-04 09:26:00 Test Item Value Reference Range Interpretation Comments Hemoglobin A1c (test code 10.1 % 4.8-5.6 H = 4548-4) . Prediabetes: 5. 7 - 6.4 Diabete s: >6.4 Glycemi c control for niall lts with diabetes: <7.0

P erforme d by:
[facility] [place] ([place])

[facility] Description: Hemoglobin A1c/Hemoglobin.total in Blood 2019-07-04 09:26:00 Test Item Value Reference Range Interpretation Comments Hemoglobin A1c (test code 10.1 % 4.8-5.6 H = 4548-4) . Prediabetes: 5. 7 - 6.4 Diabete s: >6.4 Glycemi c control for niall lts with diabetes: <7.0

P erforme d by:
[facility] [place] ([place])

[facility] Description: Hemoglobin A1c/Hemoglobin.total in Blood 2019-07-04 09:26:00 Test Item Value Reference Range Interpretation Comments Hemoglobin A1c (test code 10.1 % 4.8-5.6 H = 4548-4) . Prediabetes: 5. 7 - 6.4 Diabete s: >6.4 Glycemi c control for niall lts with diabetes: <7.0

P erforme d by:
[facility] [place] ([place])

[facility] Description: Hemoglobin A1c/Hemoglobin.total in Blood 2019-07-04 09:26:00 Test Item Value Reference Range Interpretation Comments Hemoglobin A1c (test code 10.1 % 4.8-5.6 H = 4548-4) . Prediabetes: 5. 7 - 6.4 Diabete s: >6.4 Glycemi c control for niall lts with diabetes: <7.0

P erforme d by:
[facility] ([place])

[facility] Description: Hemoglobin A1c/Hemoglobin.total in Blood 2019-07-04 09:26:00 Test Item Value Reference Range Interpretation Comments Hemoglobin A1c (test code 10.1 % 4.8-5.6 H = 4548-4) . Prediabetes: 5. 7 - 6.4 Diabete s: >6.4 Glycemi c control for niall lts with diabetes: <7.0

P erforme d by:
[facility] [place] ([place])

[facility] Description: Hemoglobin A1c/Hemoglobin.total in Blood 2019-07-04 09:26:00 Test Item Value Reference Range Interpretation Comments Hemoglobin A1c (test code 10.1 % 4.8-5.6 H = 4548-4) . Prediabetes: 5. 7 - 6.4 Diabete s: >6.4 Glycemi c control for niall lts with diabetes: <7.0

P erforme d by:
[facility] [place] ([place])

[facility] Description: Hemoglobin A1c/Hemoglobin.total in Blood 2019-07-04 09:26:00 Test Item Value Reference Range Interpretation Comments Hemoglobin A1c (test code 10.1 % 4.8-5.6 H = 4548-4) . Prediabetes: 5. 7 - 6.4 Diabete s: >6.4 Glycemi c control for niall lts with diabetes: <7.0

P erforme d by:
[facility] [place] ([place])

[facility] Description: Lipid [id number] 01:17:00 Test Item Value Reference Range Interpretation Comments Cholesterol, Total (test code = 241 mg/dL 100-199 H 2093-3) Triglycerides (test code = 2571-8) 57 mg/dL 0-149 HDL Cholesterol (test code = 37 mg/dL >39 L 5-9) VLDL Cholesterol Renuka (test code = 11 mg/dL 5-40 25667-6) LDL Cholesterol Calc (test code = 193 mg/dL 0-99 H 03241-4) Comment: (test code = 44328-2) [facility] Description: Lipid [id number] 01:17:00 Test Item Value Reference Range Interpretation Comments Cholesterol, Total (test code = 241 mg/dL 100-199 H 2093-3) Triglycerides (test code = 2571-8) 57 mg/dL 0-149 HDL Cholesterol (test code = 37 mg/dL >39 L 5-9) VLDL Cholesterol Renuka (test code = 11 mg/dL 5-40 16358-7) LDL Cholesterol Calc (test code = 193 mg/dL 0-99 H 97902-2) Comment: (test code = 35092-6) [facility] Description: Lipid [id number] 01:17:00 Test Item Value Reference Range Interpretation Comments Cholesterol, Total (test code = 241 mg/dL 100-199 H 2093-3) Triglycerides (test code = 2571-8) 57 mg/dL 0-149 HDL Cholesterol (test code = 37 mg/dL >39 L 2085-9) VLDL Cholesterol Renuka (test code = 11 mg/dL 5-40 94990-7) LDL Cholesterol Calc (test code = 193 mg/dL 0-99 H 28882-3) Comment: (test code = 80005-6) [facility] Description: Lipid [id number] 01:17:00 Test Item Value Reference Range Interpretation Comments Cholesterol, Total (test code = 241 mg/dL 100-199 H 2093-3) Triglycerides (test code = 2571-8) 57 mg/dL 0-149 HDL Cholesterol (test code = 37 mg/dL >39 L 2085-9) VLDL Cholesterol Renuka (test code = 11 mg/dL 5-40 37318-1) LDL Cholesterol Calc (test code = 193 mg/dL 0-99 H 50889-3) Comment: (test code = 50012-2) [facility] Description: Lipid [id number] 01:17:00 Test Item Value Reference Range Interpretation Comments Cholesterol, Total (test code = 241 mg/dL 100-199 H 2093-3) Triglycerides (test code = 2571-8) 57 mg/dL 0-149 HDL Cholesterol (test code = 37 mg/dL >39 L 2085-9) VLDL Cholesterol Renuka (test code = 11 mg/dL 5-40 40008-8) LDL Cholesterol Calc (test code = 193 mg/dL 0-99 H 65259-1) Comment: (test code = 45083-2) [facility] Description: Lipid [id number] 01:17:00 Test Item Value Reference Range Interpretation Comments Cholesterol, Total (test code = 241 mg/dL 100-199 H 2093-3) Triglycerides (test code = 2571-8) 57 mg/dL 0-149 HDL Cholesterol (test code = 37 mg/dL >39 L 2085-9) VLDL Cholesterol Renuka (test code = 11 mg/dL 5-40 16812-8) LDL Cholesterol Calc (test code = 193 mg/dL 0-99 H 27711-4) Comment: (test code = 87506-4) [facility] Description: Lipid [id number] 01:17:00 Test Item Value Reference Range Interpretation Comments Cholesterol, Total (test code = 241 mg/dL 100-199 H 2093-3) Triglycerides (test code = 2571-8) 57 mg/dL 0-149 HDL Cholesterol (test code = 37 mg/dL >39 L 2085-9) VLDL Cholesterol Renuka (test code = 11 mg/dL 5-40 36001-9) LDL Cholesterol Calc (test code = 193 mg/dL 0-99 H 55015-3) Comment: (test code = 12639-0) [facility] Description: Lipid [id number] 01:17:00 Test Item Value Reference Range Interpretation Comments Cholesterol, Total (test code = 241 mg/dL 100-199 H 2093-3) Triglycerides (test code = 2571-8) 57 mg/dL 0-149 HDL Cholesterol (test code = 37 mg/dL >39 L 2085-9) VLDL Cholesterol Renuka (test code = 11 mg/dL 5-40 89590-4) LDL Cholesterol Calc (test code = 193 mg/dL 0-99 H 02790-6) Comment: (test code = 06002-8) [facility] Description: Lipid [id number] 01:17:00 Test Item Value Reference Range Interpretation Comments Cholesterol, Total (test code = 241 mg/dL 100-199 H 2093-3) Triglycerides (test code = 2571-8) 57 mg/dL 0-149 HDL Cholesterol (test code = 37 mg/dL >39 L 5-9) VLDL Cholesterol Renuka (test code = 11 mg/dL 5-40 27235-7) LDL Cholesterol Calc (test code = 193 mg/dL 0-99 H 16876-9) Comment: (test code = 95878-8) [employer] Description: Lipid [id number] 01:17:00 Test Item Value Reference Range Interpretation Comments Cholesterol, Total (test code = 241 mg/dL 100-199 H 2093-3) Triglycerides (test code = 2571-8) 57 mg/dL 0-149 HDL Cholesterol (test code = 37 mg/dL >39 L 2085-9) VLDL Cholesterol Renuka (test code = 11 mg/dL 5-40 54226-3) LDL Cholesterol Calc (test code = 193 mg/dL 0-99 H 26264-8) Comment: (test code = 91965-3) [employer] Description: Lipid [id number] 01:17:00 Test Item Value Reference Range Interpretation Comments Cholesterol, Total (test code = 241 mg/dL 100-199 H 2093-3) Triglycerides (test code = 2571-8) 57 mg/dL 0-149 HDL Cholesterol (test code = 37 mg/dL >39 L 2085-9) VLDL Cholesterol Renuka (test code = 11 mg/dL 5-40 35338-6) LDL Cholesterol Calc (test code = 193 mg/dL 0-99 H 05025-1) Comment: (test code = 59970-6) [employer] Description: Lipid [id number] 01:17:00 Test Item Value Reference Range Interpretation Comments Cholesterol, Total (test code = 241 mg/dL 100-199 H 2093-3) Triglycerides (test code = 2571-8) 57 mg/dL 0-149 HDL Cholesterol (test code = 37 mg/dL >39 L 2085-9) VLDL Cholesterol Renuka (test code = 11 mg/dL 5-40 28398-9) LDL Cholesterol Calc (test code = 193 mg/dL 0-99 H 11612-3) Comment: (test code = 83670-5) [employer] Description: Lipid [id number] 01:17:00 Test Item Value Reference Range Interpretation Comments Cholesterol, Total (test code = 241 mg/dL 100-199 H 2093-3) Triglycerides (test code = 2571-8) 57 mg/dL 0-149 HDL Cholesterol (test code = 37 mg/dL >39 L 2085-9) VLDL Cholesterol Renuka (test code = 11 mg/dL 5-40 46445-1) LDL Cholesterol Calc (test code = 193 mg/dL 0-99 H 84850-0) Comment: (test code = 30963-4) [employer] Description: Lipid [id number] 01:17:00 Test Item Value Reference Range Interpretation Comments Cholesterol, Total (test code = 241 mg/dL 100-199 H 2093-3) Triglycerides (test code = 2571-8) 57 mg/dL 0-149 HDL Cholesterol (test code = 37 mg/dL >39 L 2085-9) VLDL Cholesterol Renuka (test code = 11 mg/dL 5-40 14936-1) LDL Cholesterol Calc (test code = 193 mg/dL 0-99 H 05853-4) Comment: (test code = 16052-3) [facility] Description: Lipid [id number] 01:17:00 Test Item Value Reference Range Interpretation Comments Cholesterol, Total (test code = 241 mg/dL 100-199 H 2093-3) Triglycerides (test code = 2571-8) 57 mg/dL 0-149 HDL Cholesterol (test code = 37 mg/dL >39 L 2085-9) VLDL Cholesterol Renuka (test code = 11 mg/dL 5-40 81088-9) LDL Cholesterol Calc (test code = 193 mg/dL 0-99 H 42444-3) Comment: (test code = 00573-7) [facility] Description: Lipid [id number] 01:17:00 Test Item Value Reference Range Interpretation Comments Cholesterol, Total (test code = 241 mg/dL 100-199 H 2093-3) Triglycerides (test code = 2571-8) 57 mg/dL 0-149 HDL Cholesterol (test code = 37 mg/dL >39 L 2085-9) VLDL Cholesterol Renuka (test code = 11 mg/dL 5-40 09881-1) LDL Cholesterol Calc (test code = 193 mg/dL 0-99 H 49231-2) Comment: (test code = 93103-3) [facility] Description: Lipid [id number] 01:17:00 Test Item Value Reference Range Interpretation Comments Cholesterol, Total (test code = 241 mg/dL 100-199 H 2093-3) Triglycerides (test code = 2571-8) 57 mg/dL 0-149 HDL Cholesterol (test code = 37 mg/dL >39 L 2085-9) VLDL Cholesterol Renuka (test code = 11 mg/dL 5-40 76677-8) LDL Cholesterol Calc (test code = 193 mg/dL 0-99 H 37229-4) Comment: (test code = 35000-3) [facility] Description: Lipid [id number] 01:17:00 Test Item Value Reference Range Interpretation Comments Cholesterol, Total (test code = 241 mg/dL 100-199 H 2093-3) Triglycerides (test code = 2571-8) 57 mg/dL 0-149 HDL Cholesterol (test code = 37 mg/dL >39 L 2085-9) VLDL Cholesterol Renuka (test code = 11 mg/dL 5-40 78263-1) LDL Cholesterol Calc (test code = 193 mg/dL 0-99 H 07978-3) Comment: (test code = 19919-8) [facility] Description: Lipid [id number] 01:17:00 Test Item Value Reference Range Interpretation Comments Cholesterol, Total (test code = 241 mg/dL 100-199 H 2093-3) Triglycerides (test code = 2571-8) 57 mg/dL 0-149 HDL Cholesterol (test code = 37 mg/dL >39 L 2085-9) VLDL Cholesterol Renuka (test code = 11 mg/dL 5-40 27473-6) LDL Cholesterol Calc (test code = 193 mg/dL 0-99 H 93468-1) Comment: (test code = 07241-8) [facility] Description: Lipid [id number] 01:17:00 Test Item Value Reference Range Interpretation Comments Cholesterol, Total (test code = 241 mg/dL 100-199 H 2093-3) Triglycerides (test code = 2571-8) 57 mg/dL 0-149 HDL Cholesterol (test code = 37 mg/dL >39 L 2085-9) VLDL Cholesterol Renuka (test code = 11 mg/dL 5-40 00319-6) LDL Cholesterol Calc (test code = 193 mg/dL 0-99 H 74511-7) Comment: (test code = 09058-3) [facility] Description: Lipid [id number] 01:17:00 Test Item Value Reference Range Interpretation Comments Cholesterol, Total (test code = 241 mg/dL 100-199 H 2093-3) Triglycerides (test code = 2571-8) 57 mg/dL 0-149 HDL Cholesterol (test code = 37 mg/dL >39 L 2085-9) VLDL Cholesterol Renuka (test code = 11 mg/dL 5-40 71874-6) LDL Cholesterol Calc (test code = 193 mg/dL 0-99 H 53381-3) Comment: (test code = 23315-2) [facility] Description: Lipid [id number] 01:17:00 Test Item Value Reference Range Interpretation Comments Cholesterol, Total (test code = 241 mg/dL 100-199 H 2093-3) Triglycerides (test code = 2571-8) 57 mg/dL 0-149 HDL Cholesterol (test code = 37 mg/dL >39 L 2085-9) VLDL Cholesterol Renuka (test code = 11 mg/dL 5-40 90306-0) LDL Cholesterol Calc (test code = 193 mg/dL 0-99 H 94551-6) Comment: (test code = 61068-6) [facility] [employer] Description: Lipid [id number] 01:17:00 Test Item Value Reference Range Interpretation Comments Cholesterol, Total (test code = 241 mg/dL 100-199 H 2093-3) Triglycerides (test code = 2571-8) 57 mg/dL 0-149 HDL Cholesterol (test code = 37 mg/dL >39 L 2085-9) VLDL Cholesterol Renuka (test code = 11 mg/dL 5-40 39571-5) LDL Cholesterol Calc (test code = 193 mg/dL 0-99 H 29753-3) Comment: (test code = 92647-6) [facility] Description: Lipid [id number] 01:17:00 Test Item Value Reference Range Interpretation Comments Cholesterol, Total (test code = 241 mg/dL 100-199 H 2093-3) Triglycerides (test code = 2571-8) 57 mg/dL 0-149 HDL Cholesterol (test code = 37 mg/dL >39 L 2085-9) VLDL Cholesterol Renuka (test code = 11 mg/dL 5-40 01299-7) LDL Cholesterol Calc (test code = 193 mg/dL 0-99 H 40306-6) Comment: (test code = 50613-3) [facility] Description: Lipid [id number] 01:17:00 Test Item Value Reference Range Interpretation Comments Cholesterol, Total (test code = 241 mg/dL 100-199 H 2093-3) Triglycerides (test code = 2571-8) 57 mg/dL 0-149 HDL Cholesterol (test code = 37 mg/dL >39 L 2085-9) VLDL Cholesterol Renuka (test code = 11 mg/dL 5-40 02243-0) LDL Cholesterol Calc (test code = 193 mg/dL 0-99 H 96505-6) Comment: (test code = 40180-8) [facility] Description: Lipid [id number] 01:17:00 Test Item Value Reference Range Interpretation Comments Cholesterol, Total (test code = 241 mg/dL 100-199 H 2093-3) Triglycerides (test code = 2571-8) 57 mg/dL 0-149 HDL Cholesterol (test code = 37 mg/dL >39 L 2085-9) VLDL Cholesterol Renuka (test code = 11 mg/dL 5-40 60711-0) LDL Cholesterol Calc (test code = 193 mg/dL 0-99 H 51444-5) Comment: (test code = 77217-6) [facility] Description: Lipid [id number] 01:17:00 Test Item Value Reference Range Interpretation Comments Cholesterol, Total (test code = 241 mg/dL 100-199 H 2093-3) Triglycerides (test code = 2571-8) 57 mg/dL 0-149 HDL Cholesterol (test code = 37 mg/dL >39 L 2085-9) VLDL Cholesterol Renuka (test code = 11 mg/dL 5-40 04018-5) LDL Cholesterol Calc (test code = 193 mg/dL 0-99 H 82278-3) Comment: (test code = 13119-2) [facility] Description: Lipid [id number] 01:17:00 Test Item Value Reference Range Interpretation Comments Cholesterol, Total (test code = 241 mg/dL 100-199 H 2093-3) Triglycerides (test code = 2571-8) 57 mg/dL 0-149 HDL Cholesterol (test code = 37 mg/dL >39 L 2085-9) VLDL Cholesterol Renuka (test code = 11 mg/dL 5-40 32130-9) LDL Cholesterol Calc (test code = 193 mg/dL 0-99 H 58158-8) Comment: (test code = 37975-5) [facility] Description: Lipid [id number] 01:17:00 Test Item Value Reference Range Interpretation Comments Cholesterol, Total (test code = 241 mg/dL 100-199 H 2093-3) Triglycerides (test code = 2571-8) 57 mg/dL 0-149 HDL Cholesterol (test code = 37 mg/dL >39 L 2085-9) VLDL Cholesterol Renuka (test code = 11 mg/dL 5-40 84644-9) LDL Cholesterol Calc (test code = 193 mg/dL 0-99 H 31146-5) Comment: (test code = 10283-3) [employer] [employer] Description: Comp. Metabolic Panel (14)2019-07-04 01:03:00 Test Item Value Reference Range Interpretation Comments Glucose (test code = 2345-7) 262 mg/dL 65-99 H BUN (test code = 3094-0) 27 mg/dL 6-24 H Creatinine (test code = 1.46 mg/dL 0.76-1.27 H 2160-0) eGFR If NonAfricn Am (test 57 mL/min/1.73 >59 L code = 82903-8) eGFR If Africn Am (test code = 66 mL/min/1.73 >59 46150-2) BUN/Creatinine Ratio (test 18 9-20 code = 3097-3) Sodium (test code = 2951-2) 140 mmol/L 134-144 Potassium (test code = 2823-3) 4.4 mmol/L 3.5-5.2 Chloride (test code = 2075-0) 106 mmol/L 96-106 Carbon Dioxide, Total (test 23 mmol/L 20-29 code = 2028-9) Calcium (test code = 71822-2) 8.7 mg/dL 8.7-10.2 Protein, Total (test code = 5.3 g/dL 6.0-8.5 L 2885-2) Albumin (test code = 1751-7) 3.0 g/dL 4.0-5.0 L Globulin, Total (test code = 2.3 g/dL 1.5-4.5 28903-2) A/G Ratio (test code = 1759-0) 1.3 1.2-2.2 Bilirubin, Total (test code = 0.5 mg/dL 0.0-1.2 1975-2) Alkaline Phosphatase (test 95 IU/L 39-117 code = 6768-6) AST (SGOT) (test code = 16 IU/L 0-40 1920-8) ALT (SGPT) (test code = 23 IU/L 0-44 1742-6) [facility] Description: Comp. Metabolic [facility] (14)2019-07-04 01:03:00 Test Item Value Reference Range Interpretation Comments Glucose (test code = 2345-7) 262 mg/dL 65-99 H BUN (test code = 3094-0) 27 mg/dL 6-24 H Creatinine (test code = 1.46 mg/dL 0.76-1.27 H 2160-0) eGFR If NonAfricn Am (test 57 mL/min/1.73 >59 L code = 62961-1) eGFR If Africn Am (test code = 66 mL/min/1.73 >59 93810-1) BUN/Creatinine Ratio (test 18 920 code = 3097-3) Sodium (test code = 2951-2) 140 mmol/L 134-144 Potassium (test code = 2823-3) 4.4 mmol/L 3.5-5.2 Chloride (test code = 2075-0) 106 mmol/L 96-106 Carbon Dioxide, Total (test 23 mmol/L 20-29 code = 2028-9) Calcium (test code = 15391-3) 8.7 mg/dL 8.7-10.2 Protein, Total (test code = 5.3 g/dL 6.0-8.5 L 2885-2) Albumin (test code = 1751-7) 3.0 g/dL 4.0-5.0 L Globulin, Total (test code = 2.3 g/dL 1.5-4.5 02710-5) A/G Ratio (test code = 1759-0) 1.3 [...] (test 57 mL/min/1.73 >59 L code = 61990-5) eGFR If Africn Am (test code = 66 mL/min/1.73 >59 18855-0) BUN/Creatinine Ratio (test 18 9-20 code = 3097-3) Sodium (test code = 2951-2) 140 mmol/L 134-144 Potassium (test code = 2823-3) 4.4 mmol/L 3.5-5.2 Chloride (test code = 2075-0) 106 mmol/L 96-106 Carbon Dioxide, Total (test 23 mmol/L 20-29 code = 2028-9) Calcium (test code = 94288-6) 8.7 mg/dL 8.7-10.2 Protein, Total (test code = 5.3 g/dL 6.0-8.5 L 2885-2) Albumin (test code = 1751-7) 3.0 g/dL 4.0-5.0 L Globulin, Total (test code = 2.3 g/dL 1.5-4.5 71626-1) A/G Ratio (test code = 1759-0) 1.3 [...] (test 57 mL/min/1.73 >59 L code = 54743-0) eGFR If Africn Am (test code = 66 mL/min/1.73 >59 22137-6) BUN/Creatinine Ratio (test 12-16 code = 3097-3) Sodium (test code = 2951-2) 140 mmol/L 134-144 Potassium (test code = 2823-3) 4.4 mmol/L 3.5-5.2 Chloride (test code = 2075-0) 106 mmol/L 96-106 Carbon Dioxide, Total (test 23 mmol/L - code = 2027-9) Calcium (test code = 80241-2) 8.7 mg/dL 8.7-10.2 Protein, Total (test code = 5.3 g/dL 6.0-8.5 L 2885-2) Albumin (test code = 1751-7) 3.0 g/dL 4.0-5.0 L Globulin, Total (test code = 2.3 g/dL 1.5-4.5 73170-4) A/G Ratio (test code = 1759-0) 1.3 [...] (test 57 mL/min/1.73 >59 L code = 91626-9) eGFR If Africn Am (test code = 66 mL/min/1.73 >59 26694-2) BUN/Creatinine Ratio (test 18 -20 code = 3097-3) Sodium (test code = 2951-2) 140 mmol/L 134-144 Potassium (test code = 2823-3) 4.4 mmol/L 3.5-5.2 Chloride (test code = 2075-0) 106 mmol/L 96-106 Carbon Dioxide, Total (test 23 mmol/L -29 code = 8-9) Calcium (test code = 30961-8) 8.7 mg/dL 8.7-10.2 Protein, Total (test code = 5.3 g/dL 6.0-8.5 L 2885-2) Albumin (test code = 1751-7) 3.0 g/dL 4.0-5.0 L Globulin, Total (test code = 2.3 g/dL 1.5-4.5 74854-9) A/G Ratio (test code = 1759-0) 1.3 [...] (test 57 mL/min/1.73 >59 L code = 83528-8) eGFR If Africn Am (test code = 66 mL/min/1.73 >59 94811-5) BUN/Creatinine Ratio (test 18 9-20 code = 3097-3) Sodium (test code = 2951-2) 140 mmol/L 134-144 Potassium (test code = 2823-3) 4.4 mmol/L 3.5-5.2 Chloride (test code = 2075-0) 106 mmol/L 96-106 Carbon Dioxide, Total (test 23 mmol/L 20-29 code = 8-9) Calcium (test code = 80270-2) 8.7 mg/dL 8.7-10.2 Protein, Total (test code = 5.3 g/dL 6.0-8.5 L 2885-2) Albumin (test code = 1751-7) 3.0 g/dL 4.0-5.0 L Globulin, Total (test code = 2.3 g/dL 1.5-4.5 69694-5) A/G Ratio (test code = 1759-0) 1.3 1.2-2.2 Bilirubin, Total (test code = 0.5 mg/dL 0.0-1.2 1974-) Alkaline Phosphatase (test 95 IU/L 39-117 code = 6768-6) AST (SGOT) (test code = 16 IU/L 0-40 1920-8) ALT (SGPT) (test code = 23 IU/L 0-44 1742-6) [facility] Description: Comp. Metabolic Panel (14)2019-07-04 01:03:00 Test Item Value Reference Range Interpretation Comments Glucose (test code = 2345-7) 262 mg/dL 65-99 H BUN (test code = 3094-0) 27 mg/dL 6-24 H Creatinine (test code = 1.46 mg/dL 0.76-1.27 H 2160-0) eGFR If NonAfricn Am (test 57 mL/min/1.73 >59 L code = 92376-7) eGFR If Africn Am (test code = 66 mL/min/1.73 >59 96702-2) BUN/Creatinine Ratio (test 18 9-20 code = 3097-3) Sodium (test code = 2951-2) 140 mmol/L 134-144 Potassium (test code = 2823-3) 4.4 mmol/L 3.5-5.2 Chloride (test code = 2075-0) 106 mmol/L 96-106 Carbon Dioxide, Total (test 23 mmol/L 20-29 code = 8-9) Calcium (test code = 32833-1) 8.7 mg/dL 8.7-10.2 Protein, Total (test code = 5.3 g/dL 6.0-8.5 L 2885-2) Albumin (test code = 1751-7) 3.0 g/dL 4.0-5.0 L Globulin, Total (test code = 2.3 g/dL 1.5-4.5 52322-7) A/G Ratio (test code = 1759-0) 1.3 1.2-2.2 Bilirubin, Total (test code = 0.5 mg/dL 0.0-1.2 1974-04) Alkaline Phosphatase (test 95 IU/L 39-117 code = 6768-6) AST (SGOT) (test code = 16 IU/L 0-40 1920-8) ALT (SGPT) (test code = 23 IU/L 0-44 1742-6) [facility] Description: Comp. Metabolic Panel (14)2019-07-04 01:03:00 Test Item Value Reference Range Interpretation Comments Glucose (test code = 2345-7) 262 mg/dL 65-99 H BUN (test code = 3094-0) 27 mg/dL 6-24 H Creatinine (test code = 1.46 mg/dL 0.76-1.27 H 2160-0) eGFR If NonAfricn Am (test 57 mL/min/1.73 >59 L code = 44611-8) eGFR If Africn Am (test code = 66 mL/min/1.73 >59 75275-7) BUN/Creatinine Ratio (test 18 9-20 code = 3097-3) Sodium (test code = 2951-2) 140 mmol/L 134-144 Potassium (test code = 2823-3) 4.4 mmol/L 3.5-5.2 Chloride (test code = 2075-0) 106 mmol/L 96-106 Carbon Dioxide, Total (test 23 mmol/L 20-29 code = 8-9) Calcium (test code = 47089-7) 8.7 mg/dL 8.7-10.2 Protein, Total (test code = 5.3 g/dL 6.0-8.5 L 2885-2) Albumin (test code = 1751-7) 3.0 g/dL 4.0-5.0 L Globulin, Total (test code = 2.3 g/dL 1.5-4.5 63508-8) A/G Ratio (test code = 1759-0) 1.3 1.2-2.2 Bilirubin, Total (test code = 0.5 mg/dL 0.0-1.2 1974-04) Alkaline Phosphatase (test 95 IU/L 39-117 code = 6768-6) AST (SGOT) (test code = 16 IU/L 0-40 1920-8) ALT (SGPT) (test code = 23 IU/L 0-44 1742-6) [facility] Description: Comp. Metabolic Panel (14)2019-07-04 01:03:00 Test Item Value Reference Range Interpretation Comments Glucose (test code = 2345-7) 262 mg/dL 65-99 H BUN (test code = 3094-0) 27 mg/dL 6-24 H Creatinine (test code = 1.46 mg/dL 0.76-1.27 H 2160-0) eGFR If NonAfricn Am (test 57 mL/min/1.73 >59 L code = 36069-8) eGFR If Africn Am (test code = 66 mL/min/1.73 >59 53189-6) BUN/Creatinine Ratio (test 18 9-20 code = 3097-3) Sodium (test code = 2951-2) 140 mmol/L 134-144 Potassium (test code = 2823-3) 4.4 mmol/L 3.5-5.2 Chloride (test code = 2075-0) 106 mmol/L 96-106 Carbon Dioxide, Total (test 23 mmol/L 20-29 code = 8-9) Calcium (test code = 11622-7) 8.7 mg/dL 8.7-10.2 Protein, Total (test code = 5.3 g/dL 6.0-8.5 L 2885-2) Albumin (test code = 1751-7) 3.0 g/dL 4.0-5.0 L Globulin, Total (test code = 2.3 g/dL 1.5-4.5 99869-0) A/G Ratio (test code = 1759-0) 1.3 1.2-2.2 Bilirubin, Total (test code = 0.5 mg/dL 0.0-1.2 1975-2) Alkaline Phosphatase (test 95 IU/L 39-117 code = 6768-6) AST (SGOT) (test code = 16 IU/L 0-40 1920-8) ALT (SGPT) (test code = 23 IU/L 0-44 1742-6) [facility] Description: Comp. Metabolic Panel (14)2019-07-04 01:03:00 Test Item Value Reference Range Interpretation Comments Glucose (test code = 2345-7) 262 mg/dL 65-99 H BUN (test code = 3094-0) 27 mg/dL 6-24 H Creatinine (test code = 1.46 mg/dL 0.76-1.27 H 2160-0) eGFR If NonAfricn Am (test 57 mL/min/1.73 >59 L code = 82410-8) eGFR If Africn Am (test code = 66 mL/min/1.73 >59 86699-3) BUN/Creatinine Ratio (test 18 9-20 code = 3097-3) Sodium (test code = 2951-2) 140 mmol/L 134-144 Potassium (test code = 2823-3) 4.4 mmol/L 3.5-5.2 Chloride (test code = 2075-0) 106 mmol/L 96-106 Carbon Dioxide, Total (test 23 mmol/L 20-29 code = 8-9) Calcium (test code = 65962-4) 8.7 mg/dL 8.7-10.2 Protein, Total (test code = 5.3 g/dL 6.0-8.5 L 2885-2) Albumin (test code = 1751-7) 3.0 g/dL 4.0-5.0 L Globulin, Total (test code = 2.3 g/dL 1.5-4.5 60553-2) A/G Ratio (test code = 1759-0) 1.3 [...] (test 57 mL/min/1.73 >59 L code = 06818-1) eGFR If Africn Am (test code = 66 mL/min/1.73 >59 32390-6) BUN/Creatinine Ratio (test 12-16 code = 3097-3) Sodium (test code = 2951-2) 140 mmol/L 134-144 Potassium (test code = 2823-3) 4.4 mmol/L 3.5-5.2 Chloride (test code = 2075-0) 106 mmol/L 96-106 Carbon Dioxide, Total (test 23 mmol/L 20-29 code = 2028-9) Calcium (test code = 23557-2) 8.7 mg/dL 8.7-10.2 Protein, Total (test code = 5.3 g/dL 6.0-8.5 L 2885-2) Albumin (test code = 1751-7) 3.0 g/dL 4.0-5.0 L Globulin, Total (test code = 2.3 g/dL 1.5-4.5 09509-8) A/G Ratio (test code = 1759-0) 1.3 [...] (test 57 mL/min/1.73 >59 L code = 95715-6) eGFR If Africn Am (test code = 66 mL/min/1.73 >59 22711-5) BUN/Creatinine Ratio (test 12-16 code = 3097-3) Sodium (test code = 2951-2) 140 mmol/L 134-144 Potassium (test code = 2823-3) 4.4 mmol/L 3.5-5.2 Chloride (test code = 2075-0) 106 mmol/L 96-106 Carbon Dioxide, Total (test 23 mmol/L - code = 2027-) Calcium (test code = 54462-3) 8.7 mg/dL 8.7-10.2 Protein, Total (test code = 5.3 g/dL 6.0-8.5 L 2885-2) Albumin (test code = 1751-7) 3.0 g/dL 4.0-5.0 L Globulin, Total (test code = 2.3 g/dL 1.5-4.5 91098-7) A/G Ratio (test code = 1759-0) 1.3 [...] (test 57 mL/min/1.73 >59 L code = 43474-0) eGFR If Africn Am (test code = 66 mL/min/1.73 >59 95975-2) BUN/Creatinine Ratio (test 18 - code = 3097-3) Sodium (test code = 2951-2) 140 mmol/L 134-144 Potassium (test code = 2823-3) 4.4 mmol/L 3.5-5.2 Chloride (test code = 2075-0) 106 mmol/L 96-106 Carbon Dioxide, Total (test 23 mmol/L -29 code = 2027-) Calcium (test code = 19778-7) 8.7 mg/dL 8.7-10.2 Protein, Total (test code = 5.3 g/dL 6.0-8.5 L 2885-2) Albumin (test code = 1751-7) 3.0 g/dL 4.0-5.0 L Globulin, Total (test code = 2.3 g/dL 1.5-4.5 33146-6) A/G Ratio (test code = 1759-0) 1.3 [...] (test 57 mL/min/1.73 >59 L code = 71713-4) eGFR If Africn Am (test code = 66 mL/min/1.73 >59 64442-7) BUN/Creatinine Ratio (test 18 -20 code = 3097-3) Sodium (test code = 2951-2) 140 mmol/L 134-144 Potassium (test code = 2823-3) 4.4 mmol/L 3.5-5.2 Chloride (test code = 2075-0) 106 mmol/L 96-106 Carbon Dioxide, Total (test 23 mmol/L 20-29 code = 2027-9) Calcium (test code = 71166-8) 8.7 mg/dL 8.7-10.2 Protein, Total (test code = 5.3 g/dL 6.0-8.5 L 2885-2) Albumin (test code = 1751-7) 3.0 g/dL 4.0-5.0 L Globulin, Total (test code = 2.3 g/dL 1.5-4.5 54150-7) A/G Ratio (test code = 1759-0) 1.3 [...] (test 57 mL/min/1.73 >59 L code = 29506-2) eGFR If Africn Am (test code = 66 mL/min/1.73 >59 55610-9) BUN/Creatinine Ratio (test 18 9-20 code = 3097-3) Sodium (test code = 2951-2) 140 mmol/L 134-144 Potassium (test code = 2823-3) 4.4 mmol/L 3.5-5.2 Chloride (test code = 2075-0) 106 mmol/L 96-106 Carbon Dioxide, Total (test 23 mmol/L 20-29 code = 2028-9) Calcium (test code = 51919-0) 8.7 mg/dL 8.7-10.2 Protein, Total (test code = 5.3 g/dL 6.0-8.5 L 2885-2) Albumin (test code = 1751-7) 3.0 g/dL 4.0-5.0 L Globulin, Total (test code = 2.3 g/dL 1.5-4.5 60042-8) A/G Ratio (test code = 1759-0) 1.3 1.2-2.2 Bilirubin, Total (test code = 0.5 mg/dL 0.0-1.2 1974-04) Alkaline Phosphatase (test 95 IU/L 39-117 code = 6768-6) AST (SGOT) (test code = 16 IU/L 0-40 1920-8) ALT (SGPT) (test code = 23 IU/L 0-44 1742-6) [facility] Description: Comp. Metabolic Panel (2019-07-04 01:03:00 Test Item Value Reference Range Interpretation Comments Glucose (test code = 2345-7) 262 mg/dL 65-99 H BUN (test code = 3094-0) 27 mg/dL 6-24 H Creatinine (test code = 1.46 mg/dL 0.76-1.27 H 2160-0) eGFR If NonAfricn Am (test 57 mL/min/1.73 >59 L code = 01336-3) eGFR If Africn Am (test code = 66 mL/min/1.73 >59 83259-4) BUN/Creatinine Ratio (test 18 9-20 code = 3097-3) Sodium (test code = 2951-2) 140 mmol/L 134-144 Potassium (test code = 2823-3) 4.4 mmol/L 3.5-5.2 Chloride (test code = 2075-0) 106 mmol/L 96-106 Carbon Dioxide, Total (test 23 mmol/L 20-29 code = 2028-9) Calcium (test code = 92157-9) 8.7 mg/dL 8.7-10.2 Protein, Total (test code = 5.3 g/dL 6.0-8.5 L 2885-2) Albumin (test code = 1751-7) 3.0 g/dL 4.0-5.0 L Globulin, Total (test code = 2.3 g/dL 1.5-4.5 31861-7) A/G Ratio (test code = 1759-0) 1.3 1.2-2.2 Bilirubin, Total (test code = 0.5 mg/dL 0.0-1.2 1974-04) Alkaline Phosphatase (test 95 IU/L 39-117 code = 6768-6) AST (SGOT) (test code = 16 IU/L 0-40 1920-8) ALT (SGPT) (test code = 23 IU/L 0-44 1742-6) [facility]: Comp[facility] Met[facility] (14)2019-07-04 01:03:00 Test Item Value Reference Range Interpretation Comments Glucose (test code = 2345-7) 262 mg/dL 65-99 H BUN (test code = 3094-0) 27 mg/dL 6-24 H Creatinine (test code = 1.46 mg/dL 0.76-1.27 H 2160-0) eGFR If NonAfricn Am (test 57 mL/min/1.73 >59 L code = 11908-9) eGFR If Africn Am (test code = 66 mL/min/1.73 >59 53569-4) BUN/Creatinine Ratio (test 18 9-20 code = 3097-3) Sodium (test code = 2951-2) 140 mmol/L 134-144 Potassium (test code = 2823-3) 4.4 mmol/L 3.5-5.2 Chloride (test code = 2075-0) 106 mmol/L 96-106 Carbon Dioxide, Total (test 23 mmol/L 20-29 code = 2028-9) Calcium (test code = 20229-5) 8.7 mg/dL 8.7-10.2 Protein, Total (test code = 5.3 g/dL 6.0-8.5 L 2885-2) Albumin (test code = 1751-7) 3.0 g/dL 4.0-5.0 L Globulin, Total (test code = 2.3 g/dL 1.5-4.5 86600-4) A/G Ratio (test code = 1759-0) 1.3 1.2-2.2 Bilirubin, Total (test code = 0.5 mg/dL 0.0-1.2 1975-2) Alkaline Phosphatase (test 95 IU/L 39-117 code = 6768-6) AST (SGOT) (test code = 16 IU/L 0-40 1920-8) ALT (SGPT) (test code = 23 IU/L 0-44 1742-6) [facility] Description: Comp. Metabolic Panel (14)2019-07-04 01:03:00 Test Item Value Reference Range Interpretation Comments Glucose (test code = 2345-7) 262 mg/dL 65-99 H BUN (test code = 3094-0) 27 mg/dL 6-24 H Creatinine (test code = 1.46 mg/dL 0.76-1.27 H 2160-0) eGFR If NonAfricn Am (test 57 mL/min/1.73 >59 L code = 08829-2) eGFR If Africn Am (test code = 66 mL/min/1.73 >59 21020-5) BUN/Creatinine Ratio (test 18 9-20 code = 3097-3) Sodium (test code = 2951-2) 140 mmol/L 134-144 Potassium (test code = 2823-3) 4.4 mmol/L 3.5-5.2 Chloride (test code = 2075-0) 106 mmol/L 96-106 Carbon Dioxide, Total (test 23 mmol/L 20-29 code = 2028-9) Calcium (test code = 43352-1) 8.7 mg/dL 8.7-10.2 Protein, Total (test code = 5.3 g/dL 6.0-8.5 L 2885-2) Albumin (test code = 1751-7) 3.0 g/dL 4.0-5.0 L Globulin, Total (test code = 2.3 g/dL 1.5-4.5 09987-8) A/G Ratio (test code = 1759-0) 1.3 [...] (test 57 mL/min/1.73 >59 L code = 32535-8) eGFR If Africn Am (test code = 66 mL/min/1.73 >59 65712-5) BUN/Creatinine Ratio (test 12-16 code = 3097-3) Sodium (test code = 2951-2) 140 mmol/L 134-144 Potassium (test code = 2823-3) 4.4 mmol/L 3.5-5.2 Chloride (test code = 2075-0) 106 mmol/L 96-106 Carbon Dioxide, Total (test 23 mmol/L 20-29 code = 2028-9) Calcium (test code = 71293-7) 8.7 mg/dL 8.7-10.2 Protein, Total (test code = 5.3 g/dL 6.0-8.5 L 2885-2) Albumin (test code = 1751-7) 3.0 g/dL 4.0-5.0 L Globulin, Total (test code = 2.3 g/dL 1.5-4.5 05913-8) A/G Ratio (test code = 1759-0) 1.3 [...] (test 57 mL/min/1.73 >59 L code = 84198-5) eGFR If Africn Am (test code = 66 mL/min/1.73 >59 24440-8) BUN/Creatinine Ratio (test 12-16 code = 3097-3) Sodium (test code = 2951-2) 140 mmol/L 134-144 Potassium (test code = 2823-3) 4.4 mmol/L 3.5-5.2 Chloride (test code = 2075-0) 106 mmol/L 96-106 Carbon Dioxide, Total (test 23 mmol/L 20-29 code = 2028-9) Calcium (test code = 62810-7) 8.7 mg/dL 8.7-10.2 Protein, Total (test code = 5.3 g/dL 6.0-8.5 L 2885-2) Albumin (test code = 1751-7) 3.0 g/dL 4.0-5.0 L Globulin, Total (test code = 2.3 g/dL 1.5-4.5 12908-7) A/G Ratio (test code = 1759-0) 1.3 [...] (test 57 mL/min/1.73 >59 L code = 38834-3) eGFR If Africn Am (test code = 66 mL/min/1.73 >59 61394-1) BUN/Creatinine Ratio (test 12-16 code = 3097-3) Sodium (test code = 2951-2) 140 mmol/L 134-144 Potassium (test code = 2823-3) 4.4 mmol/L 3.5-5.2 Chloride (test code = 2075-0) 106 mmol/L 96-106 Carbon Dioxide, Total (test 23 mmol/L -29 code = 2027-9) Calcium (test code = 03278-2) 8.7 mg/dL 8.7-10.2 Protein, Total (test code = 5.3 g/dL 6.0-8.5 L 2885-2) Albumin (test code = 1751-7) 3.0 g/dL 4.0-5.0 L Globulin, Total (test code = 2.3 g/dL 1.5-4.5 73908-7) A/G Ratio (test code = 1759-0) 1.3 [...] (test 57 mL/min/1.73 >59 L code = 87847-0) eGFR If Africn Am (test code = 66 mL/min/1.73 >59 71098-7) BUN/Creatinine Ratio (test 18 -20 code = 3097-3) Sodium (test code = 2951-2) 140 mmol/L 134-144 Potassium (test code = 2823-3) 4.4 mmol/L 3.5-5.2 Chloride (test code = 2075-0) 106 mmol/L 96-106 Carbon Dioxide, Total (test 23 mmol/L -29 code = 8-9) Calcium (test code = 34729-8) 8.7 mg/dL 8.7-10.2 Protein, Total (test code = 5.3 g/dL 6.0-8.5 L 2885-2) Albumin (test code = 1751-7) 3.0 g/dL 4.0-5.0 L Globulin, Total (test code = 2.3 g/dL 1.5-4.5 43531-2) A/G Ratio (test code = 1759-0) 1.3 [...] (test 57 mL/min/1.73 >59 L code = 71068-4) eGFR If Africn Am (test code = 66 mL/min/1.73 >59 56775-2) BUN/Creatinine Ratio (test 18 9-20 code = 3097-3) Sodium (test code = 2951-2) 140 mmol/L 134-144 Potassium (test code = 2823-3) 4.4 mmol/L 3.5-5.2 Chloride (test code = 2075-0) 106 mmol/L 96-106 Carbon Dioxide, Total (test 23 mmol/L 20-29 code = 2028-9) Calcium (test code = 72208-6) 8.7 mg/dL 8.7-10.2 Protein, Total (test code = 5.3 g/dL 6.0-8.5 L 2885-2) Albumin (test code = 1751-7) 3.0 g/dL 4.0-5.0 L Globulin, Total (test code = 2.3 g/dL 1.5-4.5 42746-9) A/G Ratio (test code = 1759-0) 1.3 [...] (test 57 mL/min/1.73 >59 L code = 05534-0) eGFR If Africn Am (test code = 66 mL/min/1.73 >59 70740-0) BUN/Creatinine Ratio (test 18 9-20 code = 3097-3) Sodium (test code = 2951-2) 140 mmol/L 134-144 Potassium (test code = 2823-3) 4.4 mmol/L 3.5-5.2 Chloride (test code = 2075-0) 106 mmol/L 96-106 Carbon Dioxide, Total (test 23 mmol/L 20-29 code = 2028-9) Calcium (test code = 11850-3) 8.7 mg/dL 8.7-10.2 Protein, Total (test code = 5.3 g/dL 6.0-8.5 L 2885-2) Albumin (test code = 1751-7) 3.0 g/dL 4.0-5.0 L Globulin, Total (test code = 2.3 g/dL 1.5-4.5 28483-0) A/G Ratio (test code = 1759-0) 1.3 1.2-2.2 Bilirubin, Total (test code = 0.5 mg/dL 0.0-1.2 1974-2) Alkaline Phosphatase (test 95 IU/L 39-117 code = 6768-6) AST (SGOT) (test code = 16 IU/L 0-40 1920-8) ALT (SGPT) (test code = 23 IU/L 0-44 1742-6) [facility] (14)2019-07-04 01:03:00 Test Item Value Reference Range Interpretation Comments Glucose (test code = 2345-7) 262 mg/dL 65-99 H BUN (test code = 3094-0) 27 mg/dL 6-24 H Creatinine (test code = 1.46 mg/dL 0.76-1.27 H 2160-0) eGFR If NonAfricn Am (test 57 mL/min/1.73 >59 L code = 82351-8) eGFR If Africn Am (test code = 66 mL/min/1.73 >59 25231-2) BUN/Creatinine Ratio (test 18 9-20 code = 3097-3) Sodium (test code = 2951-2) 140 mmol/L 134-144 Potassium (test code = 2823-3) 4.4 mmol/L 3.5-5.2 Chloride (test code = 2075-0) 106 mmol/L 96-106 Carbon Dioxide, Total (test 23 mmol/L 20-29 code = 8-9) Calcium (test code = 44949-6) 8.7 mg/dL 8.7-10.2 Protein, Total (test code = 5.3 g/dL 6.0-8.5 L 2885-2) Albumin (test code = 1751-7) 3.0 g/dL 4.0-5.0 L Globulin, Total (test code = 2.3 g/dL 1.5-4.5 11055-3) A/G Ratio (test code = 1759-0) 1.3 1.2-2.2 Bilirubin, Total (test code = 0.5 mg/dL 0.0-1.2 1975-2) Alkaline Phosphatase (test 95 IU/L 39-117 code = 6768-6) AST (SGOT) (test code = 16 IU/L 0-40 1920-8) ALT (SGPT) (test code = 23 IU/L 0-44 1742-6) [facility] (14)2019-07-04 01:03:00 Test Item Value Reference Range Interpretation Comments Glucose (test code = 2345-7) 262 mg/dL 65-99 H BUN (test code = 3094-0) 27 mg/dL 6-24 H Creatinine (test code = 1.46 mg/dL 0.76-1.27 H 2160-0) eGFR If NonAfricn Am (test 57 mL/min/1.73 >59 L code = 31585-7) eGFR If Africn Am (test code = 66 mL/min/1.73 >59 67420-5) BUN/Creatinine Ratio (test 18 9-20 code = 3097-3) Sodium (test code = 2951-2) 140 mmol/L 134-144 Potassium (test code = 2823-3) 4.4 mmol/L 3.5-5.2 Chloride (test code = 2075-0) 106 mmol/L 96-106 Carbon Dioxide, Total (test 23 mmol/L 20-29 code = 8-9) Calcium (test code = 35402-1) 8.7 mg/dL 8.7-10.2 Protein, Total (test code = 5.3 g/dL 6.0-8.5 L 2885-2) Albumin (test code = 1751-7) 3.0 g/dL 4.0-5.0 L Globulin, Total (test code = 2.3 g/dL 1.5-4.5 54679-0) A/G Ratio (test code = 1759-0) 1.3 1.2-2.2 Bilirubin, Total (test code = 0.5 mg/dL 0.0-1.2 1975-2) Alkaline Phosphatase (test 95 IU/L 39-117 code = 6768-6) AST (SGOT) (test code = 16 IU/L 0-40 1920-8) ALT (SGPT) (test code = 23 IU/L 0-44 1742-6) [facility] Description: Comp. Metabolic Panel (14)2019-07-04 01:03:00 Test Item Value Reference Range Interpretation Comments Glucose (test code = 2345-7) 262 mg/dL 65-99 H BUN (test code = 3094-0) 27 mg/dL 6-24 H Creatinine (test code = 1.46 mg/dL 0.76-1.27 H 2160-0) eGFR If NonAfricn Am (test 57 mL/min/1.73 >59 L code = 21811-1) eGFR If Africn Am (test code = 66 mL/min/1.73 >59 22563-5) BUN/Creatinine Ratio (test 18 9-20 code = 3097-3) Sodium (test code = 2951-2) 140 mmol/L 134-144 Potassium (test code = 2823-3) 4.4 mmol/L 3.5-5.2 Chloride (test code = 2075-0) 106 mmol/L 96-106 Carbon Dioxide, Total (test 23 mmol/L 20-29 code = 8-9) Calcium (test code = 96036-6) 8.7 mg/dL 8.7-10.2 Protein, Total (test code = 5.3 g/dL 6.0-8.5 L 2885-2) Albumin (test code = 1751-7) 3.0 g/dL 4.0-5.0 L Globulin, Total (test code = 2.3 g/dL 1.5-4.5 75863-3) A/G Ratio (test code = 1759-0) 1.3 [...] (test 57 mL/min/1.73 >59 L code = 53132-4) eGFR If Africn Am (test code = 66 mL/min/1.73 >59 63723-0) BUN/Creatinine Ratio (test 18 12-16 code = 3097-3) Sodium (test code = 2951-2) 140 mmol/L 134-144 Potassium (test code = 2823-3) 4.4 mmol/L 3.5-5.2 Chloride (test code = 2075-0) 106 mmol/L 96-106 Carbon Dioxide, Total (test 23 mmol/L 20-29 code = 2028-9) Calcium (test code = 59524-4) 8.7 mg/dL 8.7-10.2 Protein, Total (test code = 5.3 g/dL 6.0-8.5 L 2885-2) Albumin (test code = 1751-7) 3.0 g/dL 4.0-5.0 L Globulin, Total (test code = 2.3 g/dL 1.5-4.5 86139-1) A/G Ratio (test code = 1759-0) 1.3 [...] (test 57 mL/min/1.73 >59 L code = 96627-0) eGFR If Africn Am (test code = 66 mL/min/1.73 >59 97203-2) BUN/Creatinine Ratio (test 12-16 code = 3097-3) Sodium (test code = 2951-2) 140 mmol/L 134-144 Potassium (test code = 2823-3) 4.4 mmol/L 3.5-5.2 Chloride (test code = 2075-0) 106 mmol/L 96-106 Carbon Dioxide, Total (test 23 mmol/L 20-29 code = 8-9) Calcium (test code = 65211-5) 8.7 mg/dL 8.7-10.2 Protein, Total (test code = 5.3 g/dL 6.0-8.5 L 2885-2) Albumin (test code = 1751-7) 3.0 g/dL 4.0-5.0 L Globulin, Total (test code = 2.3 g/dL 1.5-4.5 32645-6) A/G Ratio (test code = 1759-0) 1.3 [...] with diabetes: <7.0

P erformed by:
[facility] ()

[facility] Description: Hemoglobin A1c/Hemoglobin.total in Blood 2019-04-05 09:29:00 Test Item Value Reference Range Interpretation Comments Hemoglobin A1c (test code 9.9 % 4.8-5.6 H = 4548-4) . Prediabetes: 5. 7 - 6.4 Diabetes : >6.4 Glycemic control for adults with diabetes: <7.0

P erformed by:
[facility] ()

[facility] Description: Hemoglobin A1c/Hemoglobin.total in Blood [...] with diabetes: <7.0

P erformed by:
[facility] ([place])

[facility] Description: Hemoglobin A1c/Hemoglobin.total in Blood 2019-04-05 09:29:00 Test Item Value Reference Range Interpretation Comments Hemoglobin A1c (test code 9.9 % 4.8-5.6 H = 4548-4) . Prediabetes: 5. 7 - 6.4 Diabetes : >6.4 Glycemic control for adults with diabetes: <7.0

P erformed by:
[facility] ([place])

[facility] Description: Hemoglobin A1c/Hemoglobin.total in Blood 2019-04-05 09:29:00 Test Item Value Reference Range Interpretation Comments Hemoglobin A1c (test code 9.9 % 4.8-5.6 H = 4548-4) . Prediabetes: 5. 7 - 6.4 Diabetes : >6.4 Glycemic control for adults with diabetes: <7.0

P erformed by:
[facility] ([place])

[facility] Description: Hemoglobin A1c/Hemoglobin.total in Blood 2019-04-05 09:29:00 Test Item Value Reference Range Interpretation Comments Hemoglobin A1c (test code 9.9 % 4.8-5.6 H = 4548-4) . Prediabetes: 5. 7 - 6.4 Diabetes : >6.4 Glycemic control for adults with diabetes: <7.0

P erformed by:
[facility] ()

[facility] Description: Hemoglobin A1c/Hemoglobin.total in Blood 2019-04-05 09:29:00 Test Item Value Reference Range Interpretation Comments Hemoglobin A1c (test code 9.9 % 4.8-5.6 H = 4548-4) . Prediabetes: 5. 7 - 6.4 Diabetes : >6.4 Glycemic control for adults with diabetes: <7.0

P erformed by:
[facility] ()

[facility] Description: Lipid [id number] 02:47:00 Test Item Value Reference Range Interpretation Comments Cholesterol, Total (test code = 392 mg/dL 100-199 H 2093-3) Triglycerides (test code = 2571-8) 159 mg/dL 0-149 H HDL Cholesterol (test code = 42 mg/dL >39 2085-9) VLDL Cholesterol Renuka (test code = 32 mg/dL 5-40 63583-6) LDL Cholesterol Calc (test code = 318 mg/dL 0-99 H 52374-1) Comment: (test code = 41764-2) [facility] Description: Lipid [id number] 02:47:00 Test Item Value Reference Range Interpretation Comments Cholesterol, Total (test code = 392 mg/dL 100-199 H 2093-3) Triglycerides (test code = 2571-8) 159 mg/dL 0-149 H HDL Cholesterol (test code = 42 mg/dL >39 2085-9) VLDL Cholesterol Renuka (test code = 32 mg/dL 5-40 68430-2) LDL Cholesterol Calc (test code = 318 mg/dL 0-99 H 18491-1) Comment: (test code = 06989-1) [facility] Description: Lipid [id number] 02:47:00 Test Item Value Reference Range Interpretation Comments Cholesterol, Total (test code = 392 mg/dL 100-199 H 2093-3) Triglycerides (test code = 2571-8) 159 mg/dL 0-149 H HDL Cholesterol (test code = 42 mg/dL >39 2085-9) VLDL Cholesterol Renuka (test code = 32 mg/dL 5-40 85866-9) LDL Cholesterol Calc (test code = 318 mg/dL 0-99 H 86879-6) Comment: (test code = 89557-9) [facility] Description: Lipid [id number] 02:47:00 Test Item Value Reference Range Interpretation Comments Cholesterol, Total (test code = 392 mg/dL 100-199 H 2093-3) Triglycerides (test code = 2571-8) 159 mg/dL 0-149 H HDL Cholesterol (test code = 42 mg/dL >39 2085-9) VLDL Cholesterol Renuka (test code = 32 mg/dL 5-40 34415-7) LDL Cholesterol Calc (test code = 318 mg/dL 0-99 H 43849-8) Comment: (test code = 44386-7) [facility] Description: Lipid [id number] 02:47:00 Test Item Value Reference Range Interpretation Comments Cholesterol, Total (test code = 392 mg/dL 100-199 H 2093-3) Triglycerides (test code = 2571-8) 159 mg/dL 0-149 H HDL Cholesterol (test code = 42 mg/dL >39 2085-9) VLDL Cholesterol Renuka (test code = 32 mg/dL 5-40 99976-4) LDL Cholesterol Calc (test code = 318 mg/dL 0-99 H 83311-3) Comment: (test code = 99305-0) [facility] Description: Lipid [id number] 02:47:00 Test Item Value Reference Range Interpretation Comments Cholesterol, Total (test code = 392 mg/dL 100-199 H 2093-3) Triglycerides (test code = 2571-8) 159 mg/dL 0-149 H HDL Cholesterol (test code = 42 mg/dL >39 2085-9) VLDL Cholesterol Renuka (test code = 32 mg/dL 5-40 50144-9) LDL Cholesterol Calc (test code = 318 mg/dL 0-99 H 51698-0) Comment: (test code = 21138-4) [facility] Description: Lipid [id number] 02:47:00 Test Item Value Reference Range Interpretation Comments Cholesterol, Total (test code = 392 mg/dL 100-199 H 2093-3) Triglycerides (test code = 2571-8) 159 mg/dL 0-149 H HDL Cholesterol (test code = 42 mg/dL >39 2085-9) VLDL Cholesterol Renuka (test code = 32 mg/dL 5-40 68717-6) LDL Cholesterol Calc (test code = 318 mg/dL 0-99 H 56876-3) Comment: (test code = 98038-8) [facility] Description: Lipid [id number] 02:47:00 Test Item Value Reference Range Interpretation Comments Cholesterol, Total (test code = 392 mg/dL 100-199 H 2093-3) Triglycerides (test code = 2571-8) 159 mg/dL 0-149 H HDL Cholesterol (test code = 42 mg/dL >39 2085-9) VLDL Cholesterol Renuka (test code = 32 mg/dL 5-40 80699-8) LDL Cholesterol Calc (test code = 318 mg/dL 0-99 H 81759-9) Comment: (test code = 80085-3) [facility] Description: Lipid [id number] 02:47:00 Test Item Value Reference Range Interpretation Comments Cholesterol, Total (test code = 392 mg/dL 100-199 H 2093-3) Triglycerides (test code = 2571-8) 159 mg/dL 0-149 H HDL Cholesterol (test code = 42 mg/dL >39 2085-9) VLDL Cholesterol Renuka (test code = 32 mg/dL 5-40 07722-1) LDL Cholesterol Calc (test code = 318 mg/dL 0-99 H 11383-0) Comment: (test code = 41240-6) [facility] Description: Lipid [id number] 02:47:00 Test Item Value Reference Range Interpretation Comments Cholesterol, Total (test code = 392 mg/dL 100-199 H 2093-3) Triglycerides (test code = 2571-8) 159 mg/dL 0-149 H HDL Cholesterol (test code = 42 mg/dL >39 2085-9) VLDL Cholesterol Renuka (test code = 32 mg/dL 5-40 80234-0) LDL Cholesterol Calc (test code = 318 mg/dL 0-99 H 39010-1) Comment: (test code = 77645-3) [facility] Description: Lipid [id number] 02:47:00 Test Item Value Reference Range Interpretation Comments Cholesterol, Total (test code = 392 mg/dL 100-199 H 2093-3) Triglycerides (test code = 2571-8) 159 mg/dL 0-149 H HDL Cholesterol (test code = 42 mg/dL >39 2085-9) VLDL Cholesterol Renuka (test code = 32 mg/dL 5-40 48476-7) LDL Cholesterol Calc (test code = 318 mg/dL 0-99 H 34040-8) Comment: (test code = 29507-3) [facility] Description: Lipid [id number] 02:47:00 Test Item Value Reference Range Interpretation Comments Cholesterol, Total (test code = 392 mg/dL 100-199 H 2093-3) Triglycerides (test code = 2571-8) 159 mg/dL 0-149 H HDL Cholesterol (test code = 42 mg/dL >39 2085-9) VLDL Cholesterol Renuka (test code = 32 mg/dL 5-40 67460-5) LDL Cholesterol Calc (test code = 318 mg/dL 0-99 H 46146-9) Comment: (test code = 97717-4) [facility] Description: Lipid [id number] 02:47:00 Test Item Value Reference Range Interpretation Comments Cholesterol, Total (test code = 392 mg/dL 100-199 H 2093-3) Triglycerides (test code = 2571-8) 159 mg/dL 0-149 H HDL Cholesterol (test code = 42 mg/dL >39 2085-9) VLDL Cholesterol Renuka (test code = 32 mg/dL 5-40 43944-1) LDL Cholesterol Calc (test code = 318 mg/dL 0-99 H 54231-4) Comment: (test code = 19285-0) [facility] Description: Lipid [id number] 02:47:00 Test Item Value Reference Range Interpretation Comments Cholesterol, Total (test code = 392 mg/dL 100-199 H 2093-3) Triglycerides (test code = 2571-8) 159 mg/dL 0-149 H HDL Cholesterol (test code = 42 mg/dL >39 2085-9) VLDL Cholesterol Renuka (test code = 32 mg/dL 5-40 28836-2) LDL Cholesterol Calc (test code = 318 mg/dL 0-99 H 42928-1) Comment: (test code = 96741-2) [facility] Description: Lipid [id number] 02:47:00 Test Item Value Reference Range Interpretation Comments Cholesterol, Total (test code = 392 mg/dL 100-199 H 2093-3) Triglycerides (test code = 2571-8) 159 mg/dL 0-149 H HDL Cholesterol (test code = 42 mg/dL >39 2085-9) VLDL Cholesterol Renuka (test code = 32 mg/dL 5-40 26371-6) LDL Cholesterol Calc (test code = 318 mg/dL 0-99 H 05104-3) Comment: (test code = 35062-1) [facility] Description: Lipid [id number] 02:47:00 Test Item Value Reference Range Interpretation Comments Cholesterol, Total (test code = 392 mg/dL 100-199 H 2093-3) Triglycerides (test code = 2571-8) 159 mg/dL 0-149 H HDL Cholesterol (test code = 42 mg/dL >39 2085-9) VLDL Cholesterol Renuka (test code = 32 mg/dL 5-40 35414-2) LDL Cholesterol Calc (test code = 318 mg/dL 0-99 H 78553-1) Comment: (test code = 05741-1) [facility] Description: Lipid [id number] 02:47:00 Test Item Value Reference Range Interpretation Comments Cholesterol, Total (test code = 392 mg/dL 100-199 H 2093-3) Triglycerides (test code = 2571-8) 159 mg/dL 0-149 H HDL Cholesterol (test code = 42 mg/dL >39 2085-9) VLDL Cholesterol Renuka (test code = 32 mg/dL 5-40 78144-6) LDL Cholesterol Calc (test code = 318 mg/dL 0-99 H 47534-4) Comment: (test code = 37983-9) [facility] Description: Lipid [id number] 02:47:00 Test Item Value Reference Range Interpretation Comments Cholesterol, Total (test code = 392 mg/dL 100-199 H 2093-3) Triglycerides (test code = 2571-8) 159 mg/dL 0-149 H HDL Cholesterol (test code = 42 mg/dL >39 2085-9) VLDL Cholesterol Renuka (test code = 32 mg/dL 5-40 26185-8) LDL Cholesterol Calc (test code = 318 mg/dL 0-99 H 18224-2) Comment: (test code = 96996-1) [facility] Description: Lipid [id number] 02:47:00 Test Item Value Reference Range Interpretation Comments Cholesterol, Total (test code = 392 mg/dL 100-199 H 2093-3) Triglycerides (test code = 2571-8) 159 mg/dL 0-149 H HDL Cholesterol (test code = 42 mg/dL >39 2085-9) VLDL Cholesterol Renuka (test code = 32 mg/dL 5-40 34296-5) LDL Cholesterol Calc (test code = 318 mg/dL 0-99 H 14608-0) Comment: (test code = 59677-2) [facility] Description: Lipid [id number] 02:47:00 Test Item Value Reference Range Interpretation Comments Cholesterol, Total (test code = 392 mg/dL 100-199 H 2093-3) Triglycerides (test code = 2571-8) 159 mg/dL 0-149 H HDL Cholesterol (test code = 42 mg/dL >39 2085-9) VLDL Cholesterol Renuka (test code = 32 mg/dL 5-40 07998-6) LDL Cholesterol Calc (test code = 318 mg/dL 0-99 H 32487-0) Comment: (test code = 82827-8) [facility] Description: Lipid [id number] 02:47:00 Test Item Value Reference Range Interpretation Comments Cholesterol, Total (test code = 392 mg/dL 100-199 H 2093-3) Triglycerides (test code = 2571-8) 159 mg/dL 0-149 H HDL Cholesterol (test code = 42 mg/dL >39 2085-9) VLDL Cholesterol Renuka (test code = 32 mg/dL 5-40 84882-6) LDL Cholesterol Calc (test code = 318 mg/dL 0-99 H 70562-9) Comment: (test code = 96361-8) [facility] Description: Lipid [id number] 02:47:00 Test Item Value Reference Range Interpretation Comments Cholesterol, Total (test code = 392 mg/dL 100-199 H 2093-3) Triglycerides (test code = 2571-8) 159 mg/dL 0-149 H HDL Cholesterol (test code = 42 mg/dL >39 2085-9) VLDL Cholesterol Renuka (test code = 32 mg/dL 5-40 50448-9) LDL Cholesterol Calc (test code = 318 mg/dL 0-99 H 72654-0) Comment: (test code = 72654-9) [facility] Description: Lipid [id number] 02:47:00 Test Item Value Reference Range Interpretation Comments Cholesterol, Total (test code = 392 mg/dL 100-199 H 2093-3) Triglycerides (test code = 2571-8) 159 mg/dL 0-149 H HDL Cholesterol (test code = 42 mg/dL >39 2085-9) VLDL Cholesterol Renuka (test code = 32 mg/dL 5-40 81806-4) LDL Cholesterol Calc (test code = 318 mg/dL 0-99 H 71857-0) Comment: (test code = 96827-8) [facility] Description: Lipid [id number] 02:47:00 Test Item Value Reference Range Interpretation Comments Cholesterol, Total (test code = 392 mg/dL 100-199 H 2093-3) Triglycerides (test code = 2571-8) 159 mg/dL 0-149 H HDL Cholesterol (test code = 42 mg/dL >39 2085-9) VLDL Cholesterol Renuka (test code = 32 mg/dL 5-40 16446-4) LDL Cholesterol Calc (test code = 318 mg/dL 0-99 H 11992-7) Comment: (test code = 09879-3) [facility] Description: Lipid [id number] 02:47:00 Test Item Value Reference Range Interpretation Comments Cholesterol, Total (test code = 392 mg/dL 100-199 H 2093-3) Triglycerides (test code = 2571-8) 159 mg/dL 0-149 H HDL Cholesterol (test code = 42 mg/dL >39 2085-9) VLDL Cholesterol Renuka (test code = 32 mg/dL 5-40 56797-9) LDL Cholesterol Calc (test code = 318 mg/dL 0-99 H 59218-6) Comment: (test code = 10499-3) [facility] Description: Lipid [id number] 02:47:00 Test Item Value Reference Range Interpretation Comments Cholesterol, Total (test code = 392 mg/dL 100-199 H 2093-3) Triglycerides (test code = 2571-8) 159 mg/dL 0-149 H HDL Cholesterol (test code = 42 mg/dL >39 2085-9) VLDL Cholesterol Renuka (test code = 32 mg/dL 5-40 70477-5) LDL Cholesterol Calc (test code = 318 mg/dL 0-99 H 65568-6) Comment: (test code = 07798-8) [facility] Description: Lipid [id number] 02:47:00 Test Item Value Reference Range Interpretation Comments Cholesterol, Total (test code = 392 mg/dL 100-199 H 2093-3) Triglycerides (test code = 2571-8) 159 mg/dL 0-149 H HDL Cholesterol (test code = 42 mg/dL >39 2085-9) VLDL Cholesterol Renuka (test code = 32 mg/dL 5-40 88990-7) LDL Cholesterol Calc (test code = 318 mg/dL 0-99 H 52953-9) Comment: (test code = 23815-7) [facility] Description: Lipid [id number] 02:47:00 Test Item Value Reference Range Interpretation Comments Cholesterol, Total (test code = 392 mg/dL 100-199 H 2093-3) Triglycerides (test code = 2571-8) 159 mg/dL 0-149 H HDL Cholesterol (test code = 42 mg/dL >39 2085-9) VLDL Cholesterol Renuka (test code = 32 mg/dL 5-40 18904-7) LDL Cholesterol Calc (test code = 318 mg/dL 0-99 H 35392-9) Comment: (test code = 26969-2) [facility] Description: Lipid [id number] 02:47:00 Test Item Value Reference Range Interpretation Comments Cholesterol, Total (test code = 392 mg/dL 100-199 H 2093-3) Triglycerides (test code = 2571-8) 159 mg/dL 0-149 H HDL Cholesterol (test code = 42 mg/dL >39 2085-9) VLDL Cholesterol Renuka (test code = 32 mg/dL 5-40 70514-4) LDL Cholesterol Calc (test code = 318 mg/dL 0-99 H 10148-7) Comment: (test code = 89214-4) [facility] Description: Comp. Metabolic Panel (14)2019-04-05 02:37:00 Test Item Value Reference Range Interpretation Comments Glucose (test code = 219 mg/dL 65-99 H 2345-7) BUN (test code = 44 mg/dL 6-24 H 3094-0) Creatinine (test code 1.51 mg/dL 0.76-1.27 H = 2160-0) eGFR If NonAfricn Am 55 mL/min/1.73 >59 L (test code = 26453-9) eGFR If Africn Am 64 mL/min/1.73 >59 (test code = 49729-8) BUN/Creatinine Ratio 29 9-20 H (test code = 3097-3) Sodium (test code = 139 mmol/L 514-052 9083-2) Potassium (test code 4.4 mmol/L 3.5-5.2 = 2823-3) Chloride (test code = 99 mmol/L 96-106 2075-0) Carbon Dioxide, Total 28 mmol/L 20-29 (test code = 2027-9) Calcium (test code = 8.9 mg/dL 8.7-10.2 55573-2) Protein, Total (test 6.1 g/dL 6.0-8.5 code [...] Total (test 2.8 g/dL 1.5-4.5 code = 00382-3) A/G Ratio (test code 1.2 1.2-2.2 = [...] 55 mL/min/1.73 >59 L (test code = 08783-1) eGFR If Africn Am 64 mL/min/1.73 >59 (test code = 44126-9) BUN/Creatinine Ratio 29 9-20 H (test code = 3097-3) Sodium (test code = 139 mmol/L 956-055 4127-2) Potassium (test code 4.4 mmol/L 3.5-5.2 = 2823-3) Chloride (test code = 99 mmol/L 96-106 2075-0) Carbon Dioxide, Total 28 mmol/L 20-29 (test code = 2027-9) Calcium (test code = 8.9 mg/dL 8.7-10.2 32002-9) Protein, Total (test 6.1 g/dL 6.0-8.5 code [...] Total (test 2.8 g/dL 1.5-4.5 code = 00816-7) A/G Ratio (test code 1.2 1.2-2.2 = [...] 55 mL/min/1.73 >59 L (test code = 69187-5) eGFR If Africn Am 64 mL/min/1.73 >59 (test code = 71008-8) BUN/Creatinine Ratio 29 9-20 H (test code = 3097-3) Sodium (test code = 139 mmol/L 952-558 4373-2) Potassium (test code 4.4 mmol/L 3.5-5.2 = 2823-3) Chloride (test code = 99 mmol/L 96-106 5-0) Carbon Dioxide, Total 28 mmol/L 20-29 (test code = 2027-9) Calcium (test code = 8.9 mg/dL 8.7-10.2 02109-0) Protein, Total (test 6.1 g/dL 6.0-8.5 code [...] Total (test 2.8 g/dL 1.5-4.5 code = 52462-2) A/G Ratio (test code 1.2 1.2-2.2 = [...] 55 mL/min/1.73 >59 L (test code = 06061-9) eGFR If Afric[place] Am 64 mL/min/1.73 >59 (test code = 16517-7) BUN/Creatinine Ratio 29 9-20 H (test code = 3097-3) Sodium (test code = 139 mmol/L 461-126 6377-2) Potassium (test code 4.4 mmol/L 3.5-5.2 = 2823-3) Chloride (test code = 99 mmol/L 96-106 2075-0) Carbon Dioxide, Total 28 mmol/L 20-29 (test code = 2027-9) Calcium (test code = 8.9 mg/dL 8.7-10.2 99383-0) Protein, Total (test 6.1 g/dL 6.0-8.5 code [...] Total (test 2.8 g/dL 1.5-4.5 code = 94125-0) A/G Ratio (test code 1.2 1.2-2.2 = [...] 55 mL/min/1.73 >59 L (test code = 46502-4) eGFR If Afric[place] Am 64 mL/min/1.73 >59 (test code = 85212-1) BUN/Creatinine Ratio 29 9-20 H (test code = 3097-3) Sodium (test code = 139 mmol/L 551-801 5104-2) Potassium (test code 4.4 mmol/L 3.5-5.2 = 2823-3) Chloride (test code = 99 mmol/L 96-106 5-0) Carbon Dioxide, Total 28 mmol/L 20-29 (test code = 2027-9) Calcium (test code = 8.9 mg/dL 8.7-10.2 70914-7) Protein, Total (test 6.1 g/dL 6.0-8.5 code [...] - 4.6

Pe rfo rmed by:
[facility] [place] ()

Globulin, Total (test 2.8 g/dL 1.5-4.5 code = 27637-6) A/G Ratio (test code 1.2 1.2-2.2 = [...] 55 mL/min/1.73 >59 L (test code = 14429-1) eGFR If Afric[place] Am 64 mL/min/1.73 >59 (test code = 47643-6) BUN/Creatinine Ratio 29 9-20 H (test code = 3097-3) Sodium (test code = 139 mmol/L 360-260 3338-2) Potassium (test code 4.4 mmol/L 3.5-5.2 = 2823-3) Chloride (test code = 99 mmol/L 96-106 2075-0) Carbon Dioxide, Total 28 mmol/L 20-29 (test code = 2027-9) Calcium (test code = 8.9 mg/dL 8.7-10.2 88769-9) Protein, Total (test 6.1 g/dL 6.0-8.5 code [...] Total (test 2.8 g/dL 1.5-4.5 code = 50783-4) A/G Ratio (test code 1.2 1.2-2.2 = [...] 55 mL/min/1.73 >59 L (test code = 15604-0) eGFR If Africn Am 64 mL/min/1.73 >59 (test code = 33368-2) BUN/Creatinine Ratio 29 9-20 H (test code = 3097-3) Sodium (test code = 139 mmol/L 861-487 2769-2) Potassium (test code 4.4 mmol/L 3.5-5.2 = 2823-3) Chloride (test code = 99 mmol/L 96-106 2074-0) Carbon Dioxide, Total 28 mmol/L 20-29 (test code = 2027-) Calcium (test code = 8.9 mg/dL 8.7-10.2 37215-5) Protein, Total (test 6.1 g/dL 6.0-8.5 code [...] Total (test 2.8 g/dL 1.5-4.5 code = 46360-3) A/G Ratio (test code 1.2 1.2-2.2 = [...] 55 mL/min/1.73 >59 L (test code = 06438-7) eGFR If Africn Am 64 mL/min/1.73 >59 (test code = 93917-0) BUN/Creatinine Ratio 29 9-20 H (test code = 3097-3) Sodium (test code = 139 mmol/L 982-092 2286-2) Potassium (test code 4.4 mmol/L 3.5-5.2 = 2823-3) Chloride (test code = 99 mmol/L 96-106 2075-0) Carbon Dioxide, Total 28 mmol/L 20-29 (test code = 2027-9) Calcium (test code = 8.9 mg/dL 8.7-10.2 04902-7) Protein, Total (test 6.1 g/dL 6.0-8.5 code [...] Total (test 2.8 g/dL 1.5-4.5 code = 52525-9) A/G Ratio (test code 1.2 1.2-2.2 = [...] 55 mL/min/1.73 >59 L (test code = 84964-1) eGFR If Africn Am 64 mL/min/1.73 >59 (test code = 39857-1) BUN/Creatinine Ratio 29 9-20 H (test code = 3097-3) Sodium (test code = 139 mmol/L 414-927 3210-2) Potassium (test code 4.4 mmol/L 3.5-5.2 = 2823-3) Chloride (test code = 99 mmol/L 96-106 2074-0) Carbon Dioxide, Total 28 mmol/L 20-29 (test code = 2027-) Calcium (test code = 8.9 mg/dL 8.7-10.2 74429-6) Protein, Total (test 6.1 g/dL 6.0-8.5 code [...] - 4.6

Pe rfo rmed by:
[facility] ()

Globulin, Total (test 2.8 g/dL 1.5-4.5 code = 72969-6) A/G Ratio (test code 1.2 1.2-2.2 = [...] 55 mL/min/1.73 >59 L (test code = 56436-6) eGFR If Africn Am 64 mL/min/1.73 >59 (test code = 60778-1) BUN/Creatinine Ratio 29 9-20 H (test code = 3097-3) Sodium (test code = 139 mmol/L 606-489 0565-2) Potassium (test code 4.4 mmol/L 3.5-5.2 = 2823-3) Chloride (test code = 99 mmol/L 96-106 2075-0) Carbon Dioxide, Total 28 mmol/L 20-29 (test code = 8-9) Calcium (test code = 8.9 mg/dL 8.7-10.2 03234-1) Protein, Total (test 6.1 g/dL 6.0-8.5 code [...] - 4.6

Pe rfo rmed by:
[facility] ([place])

Globulin, Total (test 2.8 g/dL 1.5-4.5 code = 33344-0) A/G Ratio (test code 1.2 1.2-2.2 = [...] 55 mL/min/1.73 >59 L (test code = 34292-3) eGFR If Africn Am 64 mL/min/1.73 >59 (test code = 26635-9) BUN/Creatinine Ratio 29 9-20 H (test code = 3097-3) Sodium (test code = 139 mmol/L 977-076 5188-2) Potassium (test code 4.4 mmol/L 3.5-5.2 = 2823-3) Chloride (test code = 99 mmol/L 96-106 2075-0) Carbon Dioxide, Total 28 mmol/L 20-29 (test code = 2027-) Calcium (test code = 8.9 mg/dL 8.7-10.2 05045-0) Protein, Total (test 6.1 g/dL 6.0-8.5 code [...] - 4.6

Pe rfo rmed by:
[facility] ()

Globulin, Total (test 2.8 g/dL 1.5-4.5 code = 36086-9) A/G Ratio (test code 1.2 1.2-2.2 = 175-0) Bilirubin, Total 0.5 mg/dL 0.0-1.2 (test code = 1974-) Alkaline Phosphatase 100 IU/L 39-117 (test code = 6768-6) AST (SGOT) (test code 22 IU/L 0-40 = 1920-8) ALT (SGPT) (test code 27 IU/L 0-44 = 1742-6) [facility]: Comp. Metabolic Panel (14)2019-04-05 02:37:00 Test Item Value Reference Range Interpretation Comments Glucose (test code = 219 mg/dL 65-99 H 2345-7) BUN (test code = 44 mg/dL 6-24 H 3094-0) Creatinine (test code 1.51 mg/dL 0.76-1.27 H = 2160-0) eGFR If NonAfricn Am 55 mL/min/1.73 >59 L (test code = 29109-9) eGFR If Africn Am 64 mL/min/1.73 >59 (test code = 81064-7) BUN/Creatinine Ratio 29 9-20 H (test code = 3097-3) Sodium (test code = 139 mmol/L 296-478 4826-2) Potassium (test code 4.4 mmol/L 3.5-5.2 = 2823-3) Chloride (test code = 99 mmol/L 96-106 2075-0) Carbon Dioxide, Total 28 mmol/L 20-29 (test code = 2027-9) Calcium (test code = 8.9 mg/dL 8.7-10.2 29673-8) Protein, Total (test 6.1 g/dL 6.0-8.5 code [...] - 4.6

Pe rfo rmed by:
[facility] ([place])

Globulin, Total (test 2.8 g/dL 1.5-4.5 code = 99384-4) A/G Ratio (test code 1.2 1.2-2.2 = [...] 55 mL/min/1.73 >59 L (test code = 30531-7) eGFR If Africn Am 64 mL/min/1.73 >59 (test code = 98396-0) BUN/Creatinine Ratio 29 9-20 H (test code = 3097-3) Sodium (test code = 139 mmol/L 104-699 3797-2) Potassium (test code 4.4 mmol/L 3.5-5.2 = 2823-3) Chloride (test code = 99 mmol/L 96-106 2075-0) Carbon Dioxide, Total 28 mmol/L 20-29 (test code = 2027-9) Calcium (test code = 8.9 mg/dL 8.7-10.2 10415-8) Protein, Total (test 6.1 g/dL 6.0-8.5 code [...] - 4.6

Pe rfo rmed by:
[facility] ([place])

Globulin, Total (test 2.8 g/dL 1.5-4.5 code = 98085-2) A/G Ratio (test code 1.2 1.2-2.2 = [...] 55 mL/min/1.73 >59 L (test code = 82320-3) eGFR If Africn Am 64 mL/min/1.73 >59 (test code = 80309-4) BUN/Creatinine Ratio 29 9-20 H (test code = 3097-3) Sodium (test code = 139 mmol/L 828-482 6078-2) Potassium (test code 4.4 mmol/L 3.5-5.2 = 2823-3) Chloride (test code = 99 mmol/L 96-106 2075-0) Carbon Dioxide, Total 28 mmol/L 20-29 (test code = 8-9) Calcium (test code = 8.9 mg/dL 8.7-10.2 69606-3) Protein, Total (test 6.1 g/dL 6.0-8.5 code [...] - 4.6

Pe rfo rmed by:
[facility] ([place])

Globulin, Total (test 2.8 g/dL 1.5-4.5 code = 61628-0) A/G Ratio (test code 1.2 1.2-2.2 = [...] 55 mL/min/1.73 >59 L (test code = 67466-6) eGFR If Africn Am 64 mL/min/1.73 >59 (test code = 11065-2) BUN/Creatinine Ratio 29 9-20 H (test code = 3097-3) Sodium (test code = 139 mmol/L 258-355 9328-2) Potassium (test code 4.4 mmol/L 3.5-5.2 = 2823-3) Chloride (test code = 99 mmol/L 96-106 2075-0) Carbon Dioxide, Total 28 mmol/L 20-29 (test code = 2027-9) Calcium (test code = 8.9 mg/dL 8.7-10.2 16987-3) Protein, Total (test 6.1 g/dL 6.0-8.5 code [...] - 4.6

Pe rfo rmed by:
[facility] ([place])

Globulin, Total (test 2.8 g/dL 1.5-4.5 code = 41152-4) A/G Ratio (test code 1.2 1.2-2.2 = [...] 55 mL/min/1.73 >59 L (test code = 24689-7) eGFR If Africn Am 64 mL/min/1.73 >59 (test code = 11085-7) BUN/Creatinine Ratio 29 9-20 H (test code = 3097-3) Sodium (test code = 139 mmol/L 216-706 7873-2) Potassium (test code 4.4 mmol/L 3.5-5.2 = 2823-3) Chloride (test code = 99 mmol/L 96-106 2075-0) Carbon Dioxide, Total 28 mmol/L 20-29 (test code = 8-9) Calcium (test code = 8.9 mg/dL 8.7-10.2 06178-6) Protein, Total (test 6.1 g/dL 6.0-8.5 code [...] Total (test 2.8 g/dL 1.5-4.5 code = 29240-2) A/G Ratio (test code 1.2 1.2-2.2 = [...] 55 mL/min/1.73 >59 L (test code = 28905-0) eGFR If Africn Am 64 mL/min/1.73 >59 (test code = 55515-6) BUN/Creatinine Ratio 29 9-20 H (test code = 3097-3) Sodium (test code = 139 mmol/L 519-496 0910-2) Potassium (test code 4.4 mmol/L 3.5-5.2 = 2823-3) Chloride (test code = 99 mmol/L 96-106 2075-0) Carbon Dioxide, Total 28 mmol/L 20-29 (test code = 2027-9) Calcium (test code = 8.9 mg/dL 8.7-10.2 77679-7) Protein, Total (test 6.1 g/dL 6.0-8.5 code [...] - 4.6

Pe rfo rmed by:
[facility] ([place])

Globulin, Total (test 2.8 g/dL 1.5-4.5 code = 31987-2) A/G Ratio (test code 1.2 1.2-2.2 = [...] 55 mL/min/1.73 >59 L (test code = 02164-6) eGFR If Africn Am 64 mL/min/1.73 >59 (test code = 96520-9) BUN/Creatinine Ratio 29 9-20 H (test code = 3097-3) Sodium (test code = 139 mmol/L 987-502 2777-2) Potassium (test code 4.4 mmol/L 3.5-5.2 = 2823-3) Chloride (test code = 99 mmol/L 96-106 2075-0) Carbon Dioxide, Total 28 mmol/L 20-29 (test code = 2027-9) Calcium (test code = 8.9 mg/dL 8.7-10.2 92928-5) Protein, Total (test 6.1 g/dL 6.0-8.5 code [...] Total (test 2.8 g/dL 1.5-4.5 code = 87774-4) A/G Ratio (test code 1.2 1.2-2.2 = [...] 55 mL/min/1.73 >59 L (test code = 51656-2) eGFR If Africn Am 64 mL/min/1.73 >59 (test code = 77596-4) BUN/Creatinine Ratio 29 9-20 H (test code = 3097-3) Sodium (test code = 139 mmol/L 640-782 6574-2) Potassium (test code 4.4 mmol/L 3.5-5.2 = 2823-3) Chloride (test code = 99 mmol/L 96-106 2075-0) Carbon Dioxide, Total 28 mmol/L 20-29 (test code = 2027-9) Calcium (test code = 8.9 mg/dL 8.7-10.2 18363-1) Protein, Total (test 6.1 g/dL 6.0-8.5 code = 2885-2) Albumin (test code = 3.3 g/dL 3.5-5.5 L 1751-7) Effective Megan 20, 202 0 Albumin reference interval will b e [...] - 4.6

Pe rfo rmed by:
[facility] ([place])

Globulin, Total (test 2.8 g/dL 1.5-4.5 code = 02862-4) A/G Ratio (test code 1.2 1.2-2.2 = [...] 55 mL/min/1.73 >59 L (test code = 81642-8) eGFR If Africn Am 64 mL/min/1.73 >59 (test code = 76071-8) BUN/Creatinine Ratio 29 9-20 H (test code = 3097-3) Sodium (test code = 139 mmol/L 201-086 5812-2) Potassium (test code 4.4 mmol/L 3.5-5.2 = 2823-3) Chloride (test code = 99 mmol/L 96-106 2075-0) Carbon Dioxide, Total 28 mmol/L 20-29 (test code = 2027-9) Calcium (test code = 8.9 mg/dL 8.7-10.2 28240-7) Protein, Total (test 6.1 g/dL 6.0-8.5 code [...] - 4.6

Pe rfo rmed by:
[facility] ([place])

Globulin, Total (test 2.8 g/dL 1.5-4.5 code = 50622-5) A/G Ratio (test code 1.2 1.2-2.2 = [...] 55 mL/min/1.73 >59 L (test code = 05786-4) eGFR If Africn Am 64 mL/min/1.73 >59 (test code = 91069-7) BUN/Creatinine Ratio 29 9-20 H (test code = 3097-3) Sodium (test code = 139 mmol/L 916-984 6997-2) Potassium (test code 4.4 mmol/L 3.5-5.2 = 2823-3) Chloride (test code = 99 mmol/L 96-106 2075-0) Carbon Dioxide, Total 28 mmol/L 20-29 (test code = 2027-9) Calcium (test code = 8.9 mg/dL 8.7-10.2 68654-5) Protein, Total (test 6.1 g/dL 6.0-8.5 code [...] - 4.6

Pe rfo rmed by:
[facility] ([place])

Globulin, Total (test 2.8 g/dL 1.5-4.5 code = 37059-3) A/G Ratio (test code 1.2 1.2-2.2 = [...] 55 mL/min/1.73 >59 L (test code = 97670-4) eGFR If Africn Am 64 mL/min/1.73 >59 (test code = 77362-5) BUN/Creatinine Ratio 29 9-20 H (test code = 3097-3) Sodium (test code = 139 mmol/L 554-095 4396-2) Potassium (test code 4.4 mmol/L 3.5-5.2 = 2823-3) Chloride (test code = 99 mmol/L 96-106 2075-0) Carbon Dioxide, Total 28 mmol/L 20-29 (test code = 2027-9) Calcium (test code = 8.9 mg/dL 8.7-10.2 98555-7) Protein, Total (test 6.1 g/dL 6.0-8.5 code [...] Total (test 2.8 g/dL 1.5-4.5 code = 91207-2) A/G Ratio (test code 1.2 1.2-2.2 = [...] 55 mL/min/1.73 >59 L (test code = 03487-7) eGFR If Africn Am 64 mL/min/1.73 >59 (test code = 27255-8) BUN/Creatinine Ratio 29 9-20 H (test code = 3097-3) Sodium (test code = 139 mmol/L 389-898 3824-2) Potassium (test code 4.4 mmol/L 3.5-5.2 = 2823-3) Chloride (test code = 99 mmol/L 96-106 5-0) Carbon Dioxide, Total 28 mmol/L 20-29 (test code = 2027-9) Calcium (test code = 8.9 mg/dL 8.7-10.2 90352-8) Protein, Total (test 6.1 g/dL 6.0-8.5 code [...] Total (test 2.8 g/dL 1.5-4.5 code = 50758-5) A/G Ratio (test code 1.2 1.2-2.2 = [...] 55 mL/min/1.73 >59 L (test code = 59827-3) eGFR If Africn Am 64 mL/min/1.73 >59 (test code = 78342-7) BUN/Creatinine Ratio 29 9-20 H (test code = 3097-3) Sodium (test code = 139 mmol/L 396-827 8074-2) Potassium (test code 4.4 mmol/L 3.5-5.2 = 2823-3) Chloride (test code = 99 mmol/L 96-106 5-0) Carbon Dioxide, Total 28 mmol/L 20-29 (test code = 2027-9) Calcium (test code = 8.9 mg/dL 8.7-10.2 86186-9) Protein, Total (test 6.1 g/dL 6.0-8.5 code [...] Total (test 2.8 g/dL 1.5-4.5 code = 76181-6) A/G Ratio (test code 1.2 1.2-2.2 = [...] 55 mL/min/1.73 >59 L (test code = 20264-0) eGFR If Africn Am 64 mL/min/1.73 >59 (test code = 49177-2) BUN/Creatinine Ratio 29 9-20 H (test code = 3097-3) Sodium (test code = 139 mmol/L 684-158 1152-2) Potassium (test code 4.4 mmol/L 3.5-5.2 = 2823-3) Chloride (test code = 99 mmol/L 96-106 2075-0) Carbon Dioxide, Total 28 mmol/L 20-29 (test code = 2027-9) Calcium (test code = 8.9 mg/dL 8.7-10.2 37656-4) Protein, Total (test 6.1 g/dL 6.0-8.5 code [...] Total (test 2.8 g/dL 1.5-4.5 code = 36112-3) A/G Ratio (test code 1.2 1.2-2.2 = [...] 55 mL/min/1.73 >59 L (test code = 16149-2) eGFR If Africn Am 64 mL/min/1.73 >59 (test code = 51336-0) BUN/Creatinine Ratio 29 9-20 H (test code = 3097-3) Sodium (test code = 139 mmol/L 692-174 8855-2) Potassium (test code 4.4 mmol/L 3.5-5.2 = 2823-3) Chloride (test code = 99 mmol/L 96-106 5-0) Carbon Dioxide, Total 28 mmol/L 20-29 (test code = 2027-9) Calcium (test code = 8.9 mg/dL 8.7-10.2 62381-1) Protein, Total (test 6.1 g/dL 6.0-8.5 code [...] Total (test 2.8 g/dL 1.5-4.5 code = 86062-6) A/G Ratio (test code 1.2 1.2-2.2 = [...] 55 mL/min/1.73 >59 L (test code = 24115-8) eGFR If Africn Am 64 mL/min/1.73 >59 (test code = 06151-6) BUN/Creatinine Ratio 29 9-20 H (test code = 3097-3) Sodium (test code = 139 mmol/L 538-345 0416-2) Potassium (test code 4.4 mmol/L 3.5-5.2 = 2823-3) Chloride (test code = 99 mmol/L 96-106 2075-0) Carbon Dioxide, Total 28 mmol/L 20-29 (test code = 2027-9) Calcium (test code = 8.9 mg/dL 8.7-10.2 22119-6) Protein, Total (test 6.1 g/dL 6.0-8.5 code [...] Total (test 2.8 g/dL 1.5-4.5 code = 84205-8) A/G Ratio (test code 1.2 1.2-2.2 = [...] 55 mL/min/1.73 >59 L (test code = 57143-5) eGFR If Africn Am 64 mL/min/1.73 >59 (test code = 27745-0) BUN/Creatinine Ratio 29 9-20 H (test code = 3097-3) Sodium (test code = 139 mmol/L 079-241 2716-2) Potassium (test code 4.4 mmol/L 3.5-5.2 = 2823-3) Chloride (test code = 99 mmol/L 96-106 2074-0) Carbon Dioxide, Total 28 mmol/L 20-29 (test code = 2027-11) Calcium (test code = 8.9 mg/dL 8.7-10.2 44347-4) Protein, Total (test 6.1 g/dL 6.0-8.5 code [...] Total (test 2.8 g/dL 1.5-4.5 code = 77206-8) A/G Ratio (test code 1.2 1.2-2.2 = 175-0) Bilirubin, Total 0.5 mg/dL 0.0-1.2 (test code [...] 55 mL/min/1.73 >59 L (test code = 31951-6) eGFR If Africn Am 64 mL/min/1.73 >59 (test code = 12626-1) BUN/Creatinine Ratio 29 9-20 H (test code = 3097-3) Sodium (test code = 139 mmol/L 401-874 3227-2) Potassium (test code 4.4 mmol/L 3.5-5.2 = 2823-3) Chloride (test code = 99 mmol/L 96-106 2075-0) Carbon Dioxide, Total 28 mmol/L 20-29 (test code = 2027-9) Calcium (test code = 8.9 mg/dL 8.7-10.2 94755-6) Protein, Total (test 6.1 g/dL 6.0-8.5 code [...] Total (test 2.8 g/dL 1.5-4.5 code = 40703-5) A/G Ratio (test code 1.2 1.2-2.2 = 1759-0) Bilirubin, Total 0.5 mg/dL 0.0-1.2 (test code = 1975-2) Alkaline Phosphatase 100 IU/L 39-117 (test code = 6768-6) AST (SGOT) (test code 22 IU/L 0-40 = 1920-8) ALT (SGPT) (test code 27 IU/L 0-44 = 1742-6) [facility] A [id number] 11:58:00 Test Item Value Reference Range Interpretation Comments STREP A ANTIGEN ([facility]) (test code Negative = 556) POCT-GLUCOSE [id number] 22:44:00 Test Item Value Reference Range Interpretation Comments POC-GLUCOSE METER 431 mg/dL 70-110 HH TESTED AT [address] ([facility]) (test code [address] [facility] [place] = 1538) [id number] POCT-GLUCOSE [id number] 22:44:00 Test Item Value Reference Range Interpretation Comments POC-GLUCOSE METER 455 mg/dL 70-110 HH TESTED AT [address] ([facility]) (test code [address] [facility] [place] = 1538) [address] URINALYSIS W/ REFLEX URINE [id number] 20:30:00 Test Item Value Reference Range Interpretation [...] code = 1663) SOURCE(BEAKER) (test code = 0690) COMPREHENSIVE METABOLIC [id number] 20:27:00 Test Item Value Reference Range Interpretation [...] S NOT APPLICABLE FOR DIALYSIS PATIEN TS. [id number] 20:27:00 Test Item Value Reference Range Interpretation Comments LIPASE (BEAKER) (test code = 749) 37 U/L 6-51 [id number] 20:23:00 Test Item Value Reference Range Interpretation [...] Information (Auto Output)CBC W/PLT COUNT & AUTO [id number] 20:11:00 Test Item Value Reference Range Interpretation [...] (BEAKER) (test code = 2801) BASIC METABOLIC [id number] 06:52:00 Test Item Value Reference Range Interpretation [...] NOT APPLICABLE FOR DIALYSIS PATIEN TS. POCT-GLUCOSE [id number] 05:58:00 Test Item Value Reference Range Interpretation Comments POC-GLUCOSE METER 222 mg/dL 70-[address] [facility] (test code [address] [facility] [place] = 1538) [address] POCT-GLUCOSE [id number] 20:37:00 Test Item Value Reference Range Interpretation Comments POC-GLUCOSE METER 157 mg/dL 70-[address] [facility] (BEAKER) (test code [address] [facility] [place] = 1538) [address] POCT-GLUCOSE [id number] 18:13:00 Test Item Value Reference Range Interpretation Comments POC-GLUCOSE METER 176 mg/dL 70-[address] [facility] (BEAKER) (test code [address] [facility] [place] = 1538) [address] POCT-GLUCOSE [id number] 12:16:00 Test Item Value Reference Range Interpretation Comments POC-GLUCOSE METER 161 mg/dL 70-[address] [facility] (BEAKER) (test code [address] [facility] [place] = 1538) [address] BASIC METABOLIC [id number] 07:11:00 Test Item Value Reference Range Interpretation [...] PATIEN TS. CBC W/PLT COUNT & AUTO [id number] 06:27:00 Test Item Value Reference Range Interpretation [...] PERCENT (BEAKER) (test code = 2801) POCT-GLUCOSE [id number] 06:22:00 Test Item Value Reference Range Interpretation Comments POC-GLUCOSE METER 172 mg/dL 70-110 H TESTED AT [address] ([facility]) (test code [address] [facility] [place] = 1538) [address] POCT-GLUCOSE [id number] 20:27:00 Test Item Value Reference Range Interpretation Comments POC-GLUCOSE METER 209 mg/dL 70-110 H TESTED AT [address] ([facility]) (test code [address] [facility] [place] = 1538) [address] POCT-GLUCOSE [id number] 18:12:00 Test Item Value Reference Range Interpretation Comments POC-GLUCOSE METER 192 mg/dL 70-110 H TESTED AT [address] ([facility]) (test code [address] [facility] [place] = 1538) [address] POCT-GLUCOSE [id number] 11:20:00 Test Item Value Reference Range Interpretation Comments POC-GLUCOSE METER 192 mg/dL 70-110 H TESTED AT [address] ([facility]) (test code [address] [facility] [place] = 1538) [address] BASIC METABOLIC [id number] 07:02:00 Test Item Value Reference Range Interpretation [...] PATIEN TS. CBC W/PLT COUNT & AUTO [id number] 06:41:00 Test Item Value Reference Range Interpretation [...] PERCENT (BEAKER) (test code = 2801) POCT-GLUCOSE [id number] 06:13:00 Test Item Value Reference Range Interpretation Comments POC-GLUCOSE METER 134 mg/dL 70-110 H TESTED AT [address] ([facility]) (test code [address] [facility] [place] = 1538) [address] POCT-GLUCOSE [id number] 21:38:00 Test Item Value Reference Range Interpretation Comments POC-GLUCOSE METER 114 mg/dL 70-110 H TESTED AT [address] ([facility]) (test code [address] [facility] [place] = 1538) [address] POCT-GLUCOSE [id number] 16:58:00 Test Item Value Reference Range Interpretation Comments POC-GLUCOSE METER 294 mg/dL 70-110 H TESTED AT [address] ([facility]) (test code [address] [facility] [place] = 1538) [address] POCT-GLUCOSE [id number] 12:03:00 Test Item Value Reference Range Interpretation Comments POC-GLUCOSE METER 157 mg/dL 70-110 H TESTED AT [address] ([facility]) (test code [address] [facility] [place] = 1538) [address] POCT-GLUCOSE [id number] 06:50:00 Test Item Value Reference Range Interpretation Comments POC-GLUCOSE METER 167 mg/dL 70-110 H TESTED AT [facility] [address] (BEAKER) (test code [address] [facility] [place] = 1538) [address] BASIC METABOLIC [id number] 05:07:00 Test Item Value Reference Range Interpretation [...] S NOT APPLICABLE FOR DIALYSIS PATIEN TS. [id number] 05:01:00 Test Item Value Reference Range Interpretation Comments MAGNESIUM (BEAKER) (test code = 2.0 mg/dL 1.5-3.0 627) CBC W/PLT COUNT & AUTO [id number] 04:43:00 Test Item Value Reference Range Interpretation [...] PERCENT (BEAKER) (test code = 2801) POCT-GLUCOSE [id number] 20:37:00 Test Item Value Reference Range Interpretation Comments POC-GLUCOSE METER 212 mg/dL 70-110 H TESTED AT [address] ([facility] (test code [facility] [place] = 1538) [address] POCT-GLUCOSE [id number] 17:03:00 Test Item Value Reference Range Interpretation Comments POC-GLUCOSE METER 176 mg/dL 70-110 H TESTED AT [address] (BEAKER) (test code [address] [facility] [place] = 1538) [address] POCT-GLUCOSE [id number] 12:05:00 Test Item Value Reference Range Interpretation Comments POC-GLUCOSE METER 169 mg/dL 70-110 H TESTED AT [address] (BEAKER) (test code [address] [facility] [place] = 1538) [address] POCT-GLUCOSE [id number] 09:25:00 Test Item Value Reference Range Interpretation Comments POC-GLUCOSE METER 148 mg/dL 70-110 H TESTED AT [address] (BEAKER) (test code [address] [facility] [place] = 1538) [address] BASIC METABOLIC [id number] 06:32:00 Test Item Value Reference Range Interpretation [...] NOT APPLICABLE FOR DIALYSIS PATIEN TS. POCT-GLUCOSE [id number] 06:12:00 Test Item Value Reference Range Interpretation Comments POC-GLUCOSE METER 165 mg/dL 70-110 H TESTED AT [address] (BEAKER) (test code [address] [facility] [place] = 1538) [address] CBC W/PLT COUNT & AUTO [id number] 06:00:00 Test Item Value Reference Range Interpretation [...] PERCENT (BEAKER) (test code = 2801) POCT-GLUCOSE [id number] 21:02:00 Test Item Value Reference Range Interpretation Comments POC-GLUCOSE METER 185 mg/dL 70-110 H TESTED AT [address] ([facility]) (test code [facility] [place] = 1538) [id number] POCT-GLUCOSE [id number] 16:21:00 Test Item Value Reference Range Interpretation Comments POC-GLUCOSE METER 141 mg/dL 70-[address] [facility] [address] ([facility]) (test code [address] [facility] [place] = 1538) [address] POCT-GLUCOSE [id number] 12:26:00 Test Item Value Reference Range Interpretation Comments POC-GLUCOSE METER 145 mg/dL 70-[address] [facility] (test code [address] [facility] [place] = 1538) [address] POCT-GLUCOSE [id number] 06:43:00 Test Item Value Reference Range Interpretation Comments POC-GLUCOSE METER 170 mg/dL 70-[address] [facility] (test code [address] [facility] [place] = 1538) [address] BASIC METABOLIC [id number] 06:39:00 Test Item Value Reference Range Interpretation Comments SODIUM (BEAKER) 140 meq/L 135-148 (test code = 381) POTASSIUM (BEAKER) 3.9 meq/L 3.6-5.5 (test code = 379) CHLORIDE (BEAKER) 104 meq/L 98-106 (test code = 382) CO2 (BEAKER) (test 30 meq/L 20-29 H code = 355) BLOOD UREA NITROGEN 20 mg/dL -26 (BEAKER) (test code = 354) CREATININE (BEAKER) [...] S NOT APPLICABLE FOR DIALYSIS PATIEN TS. [id number] 06:33:00 Test Item Value Reference Range Interpretation Comments MAGNESIUM (BEAKER) (test code = 1.9 mg/dL 1.5-3.0 627) CBC W/PLT COUNT & AUTO [id number] 06:10:00 Test Item Value Reference Range Interpretation [...] PERCENT (BEAKER) (test code = 2801) POCT-GLUCOSE [id number] 21:08:00 Test Item Value Reference Range Interpretation Comments POC-GLUCOSE METER 218 mg/dL 70-110 H TESTED AT [address] ([facility]) (test code [address] [facility] [place] = 1538) [id number] POCT-GLUCOSE [id number] 16:36:00 Test Item Value Reference Range Interpretation Comments POC-GLUCOSE METER 142 mg/dL 70-110 H [address]ED [address] [address] ([facility]) (test code [address] [facility] [place] = 1538) [address] POCT-GLUCOSE [id number] 11:26:00 Test Item Value Reference Range Interpretation Comments POC-GLUCOSE METER 191 mg/dL 70-110 H TESTED AT [address] ([facility]) (test code [address] [facility] [place] = 1538) [address] VANCOMYCIN LEVEL, [id number] 09:08:00 Test Item Value Reference Range Interpretation Comments VANCOMYCIN TROUGH ([facility]) (test 17.9 ug/mL 10.0-20.0 code = 522) VANCOMYCIN DOSING BY RX - follow upTROUGH PRIOR TO DOSE ON 01/20/18 AT 8:30am COMPREHENSIVE METABOLIC [id number] 06:57:00 Test Item Value Reference Range Interpretation [...] NOT APPLICABLE FOR DIALYSIS PATIEN TS. POCT-GLUCOSE [id number] 06:33:00 Test Item Value Reference Range Interpretation Comments POC-GLUCOSE METER 226 mg/dL 70-110 H TESTED AT [address] ([facility]) (test code [address] [facility] [place] = 1538) [address] B-TYPE NATRIURETIC FACTOR (BNP)2018-01-20 06:00:00 Test Item Value Reference Range Interpretation Comments B-TYPE NATRIURETIC PEPTIDE (BEAKER) 371 pg/mL 0-100 H (test code = 700) CBC W/PLT COUNT & AUTO [id number] 05:40:00 Test Item Value Reference Range Interpretation [...] (BEAKER) (test code = 2801) BASIC METABOLIC [id number] 23:25:00 Test Item Value Reference Range Interpretation [...] S NOT APPLICABLE FOR DIALYSIS PATIEN TS. [id number] 23:19:00 Test Item Value Reference Range Interpretation Comments [facility]UM [facility] (test code = 1.9 mg/dL 1.5-3.0 627) POCT-GLUCOSE [id number] 21:12:00 Test Item Value Reference Range Interpretation Comments POC-GLUCOSE METER 237 mg/dL 70-110 H TESTED AT [address] ([facility]) (test code [facility] [place] = 1538) [address] POCT-GLUCOSE [id number] 17:00:00 Test Item Value Reference Range Interpretation Comments POC-GLUCOSE METER 156 mg/dL 70-110 H TESTED AT [address] ([facility]) (test code [facility] [place] = 1538) [address] POCT-GLUCOSE [id number] 12:51:00 Test Item Value Reference Range Interpretation Comments POC-GLUCOSE METER 135 mg/dL 70-110 H TESTED AT [address] ([facility]) (test code [facility] [place] = 1538) [address] POCT-GLUCOSE [id number] 08:16:00 Test Item Value Reference Range Interpretation Comments POC-GLUCOSE METER 212 mg/dL 70-110 H TESTED AT [address] ([facility]) (test code [facility] [place] = 1538) [address] VANCOMYCIN LEVEL, [id number] 21:00:00 Test Item Value Reference Range Interpretation Comments VANCOMYCIN TROUGH ([facility]) (test 14.3 ug/mL 10.0-20.0 code = 522) POCT-GLUCOSE [id number] 20:56:00 Test Item Value Reference Range Interpretation Comments POC-GLUCOSE METER 216 mg/dL 70-110 H TESTED AT [address] ([facility]) (test code [facility] [place] = 1538) [address] POCT-GLUCOSE [id number] 17:03:00 Test Item Value Reference Range Interpretation Comments POC-GLUCOSE METER 269 mg/dL 70-110 H TESTED AT [address] ([facility]) (test code [facility] [place] = 1538) [address] POCT-GLUCOSE [id number] 06:22:00 Test Item Value Reference Range Interpretation Comments POC-GLUCOSE METER 115 mg/dL 70-[address] [facility] [address] (BEAKER) (test code [address] [facility] [place] = 1538) [address] BASIC METABOLIC [id number] 04:43:00 Test Item Value Reference Range Interpretation [...] S NOT APPLICABLE FOR DIALYSIS PATIEN TS. [id number] 04:37:00 Test Item Value Reference Range Interpretation Comments MAGNESIUM (BEAKER) (test code = 1.8 mg/dL 1.5-3.0 627) CBC W/PLT COUNT & AUTO [id number] 04:24:00 Test Item Value Reference Range Interpretation [...] PERCENT (BEAKER) (test code = 2801) POCT-GLUCOSE [id number] 20:55:00 Test Item Value Reference Range Interpretation Comments POC-GLUCOSE METER 145 mg/dL 70-[address] [facility] (test code [facility] [place] = 1538) [address] VENOUS DOPPLER LEGS, [id number] 17:50:00Reason for exam:->r/o DVT FINAL REPORT Comparison: 12/08/2017 Discussion: Grayscale, color Doppler, spectral wave form analysis of the deep venous system of the bilateral lower extremities was performed.The common femoral, femoral, and popliteal veins are normally compressible and demonstrate normal spontaneous phasic wave forms.The visualized calf veins are patent. Impression: No evidence of deep venous thrombus in the bilateral lower extremities. Signed: Gab Bonillaeport Verified Date/Time: 01/17/2018 17:50:07 Reading Location: [facility] Reading Room POCT-GLUCOSE [id number] 17:04:00 Test Item Value Reference Range Interpretation Comments POC-GLUCOSE METER 134 mg/dL 70-110 H TESTED AT [address] ([facility]) (test code [address] [facility] [place] = 1538) [address] POCT-GLUCOSE [id number] 11:54:00 Test Item Value Reference Range Interpretation Comments POC-GLUCOSE METER 219 mg/dL 70-110 H TESTED AT [address] ([facility]) (test code [address] [facility] [place] = 1538) [address] POCT-GLUCOSE [id number] 09:10:00 Test Item Value Reference Range Interpretation Comments POC-GLUCOSE METER 48 mg/dL 70-110 L TESTED AT [address] ([facility]) (test code = [address] [facility] 1538) [address] BASIC METABOLIC [id number] 06:27:00 Test Item Value Reference Range Interpretation [...] NOT APPLICABLE FOR DIALYSIS PATIEN TS. POCT-GLUCOSE [id number] 06:26:00 Test Item Value Reference Range Interpretation Comments POC-GLUCOSE METER 101 mg/dL 70-110 TESTED AT [address] (BEAKER) (test code [address] [facility] [place] = 1534) [address] CBC W/PLT COUNT & AUTO [id number] 05:58:00 Test Item Value Reference Range Interpretation [...] PERCENT (BEAKER) (test code = 2801) TROPONIN [id number] 00:11:00 Test Item Value Reference Range Interpretation [...] = 700) RAD, CHEST, 1 VIEW, NON [id number] 00:09:00Reason for exam:->SHORTNESS OF BREATHReason for exam:->EDEMAReason [...] Robert MDReport Verified Date/Time: 01/17/2018 00:09:15 Reading Location:[facility] C013Y CT Body Reading Room BASIC METABOLIC [id number] 00:02:00 Test Item Value Reference Range Interpretation [...] PATIEN TS. CBC W/PLT COUNT & AUTO [id number] 23:35:00 Test Item Value Reference Range Interpretation [...] PERCENT (BEAKER) (test code = 2801) BLOOD [id number] 10:00:00 Test Item Value Reference Range Interpretation Comments CULTURE (BEAKER) (test No growth in 5 days code = 1095) BLOOD [id number] 10:00:00 Test Item Value Reference Range Interpretation Comments CULTURE (BEAKER) (test No growth in 5 days code = 1095) WOUND CULTURE + GRAM [id number] 10:10:00 Test Item Value Reference Interpretation Comments [...] (test code = cocci in pairs and 081660) clusters POCT-GLUCOSE [id number] 17:33:00 Test Item Value Reference Range Interpretation Comments POC-GLUCOSE METER 105 mg/dL 70-[address] [facility] (BEAKER) (test code [facility] [facility] [place] = 1538) [address] URINALYSIS W/ REFLEX URINE [id number] 09:56:00 Test Item Value Reference Range Interpretation [...] 1663) SOURCE(BEAKER) (test code = 2795) POCT-GLUCOSE [id number] 08:36:00 Test Item Value Reference Range Interpretation Comments POC-GLUCOSE METER 162 mg/dL 70-[address] [facility] [address] (BEAKER) (test code [address] [facility] [place] = 1538) [address] TSH/FREE T4 IF [id number] 07:04:00 Test Item Value Reference Range Interpretation Comments THYROID STIMULATING HORMONE 4.64 uIU/mL 0.35-5.50 (BEAKER) (test code = 772) LIPID [id number] 06:50:00 Test Item Value Reference Range Interpretation [...] 130-159 High 160-189 Very High >=190BASIC METABOLIC [id number] 06:48:00 Test Item Value Reference Range Interpretation [...] PATIEN TS. CBC W/PLT COUNT & AUTO [id number] 06:33:00 Test Item Value Reference Range Interpretation [...] PERCENT (BEAKER) (test code = 2801) HEMOGLOBIN [id number] 06:32:00 Test Item Value Reference Range Interpretation Comments HEMOGLOBIN A1C (BEAKER) (test code = 10.4 % 4.3-6.1 H 368) VENOUS DOPPLER LEGS, [id number] 05:53:00Reason for exam:->edema rule out DVT/ CellulitisFINAL [...] MDReport Verified Date/Time: 12/08/2017 05:53:51 Reading Location: [address] Body Reading Room TROPONIN [id number] 00:46:00 Test Item Value Reference Range Interpretation [...] acidosis, acute neurological disease, and persistent tachyarrhythmia.POCT-GLUCOSE [id number] 21:14:00 Test Item Value Reference Range Interpretation Comments POC-GLUCOSE METER 221 mg/dL 70-[address] [facility] (test code [facility] [place] = 1538) [address] POCT-GLUCOSE [id number] 16:43:00 Test Item Value Reference Range Interpretation Comments POC-GLUCOSE METER 371 mg/dL 70-[address] [facility] [address] ([facility]) (test code [facility] [place] = 1538) [address] CREATINE KINASE (CK), TOTAL AND [id number] 14:26:00 Test Item Value Reference Range Interpretation [...] acute neurological disease, and persistent tachyarrhythmia.BASIC METABOLIC [id number] 14:00:00 Test Item Value Reference Range Interpretation [...] S NOT APPLICABLE FOR DIALYSIS PATIEN TS. [id number] 13:54:00 Test Item Value Reference Range Interpretation Comments MAGNESIUM (BEAKER) 2.1 mg/dL 1.5-3.0 Specimen slightly (test code = 627) hemolyzed B-TYPE NATRIURETIC FACTOR (BNP)2017-12-07 13:48:00 Test Item Value Reference Range Interpretation Comments B-TYPE NATRIURETIC PEPTIDE (BEAKER) 520 pg/mL 0-100 H (test code = 700) [id number] 13:19:00 Test Item Value Reference Range Interpretation [...] Information (Auto Output)CBC W/PLT COUNT & AUTO [id number] 13:07:00 Test Item Value Reference Range Interpretation [...] = 2801) RAD, CHEST, 1 VIEW, NON [id number] 12:44:00Reason for exam:->CHEST PAIN FINAL REPORT Chest [...] a tiny left pleural effusion. Signed: Suki Woodyeport Verified Date/Time: 12/07/2017 12:44:27 Reading Location: [address] Radiology Reading Room CREATINE KINASE (CK), TOTAL AND [id number] 02:36:00 Test Item Value Reference Range Interpretation [...] acute neurological disease, and persistent tachyarrhythmia.COMPREHENSIVE METABOLIC [id number] 02:28:00 Test Item Value Reference Range Interpretation [...] PATIEN TS. CBC W/PLT COUNT & AUTO [id number] 02:14:00 Test Item Value Reference Range Interpretation [...] PERCENT (BEAKER) (test code = 2801) KETONE, [id number] 01:55:00 Test Item Value Reference Range Interpretation Comments KETONES, BLOOD (BEAKER) (test code 0.2 mmol/L <0.4 = 1103) RAD, CHEST, 1 VIEW, NON [id number] 01:46:00Reason for exam:->pacemaker placement,pt feels it was [...] MDReport Verified Date/Time: 11/27/2017 01:46:38 Reading Location: [address] Reading Room POCT-GLUCOSE [id number] 13:29:00 Test Item Value Reference Range Interpretation Comments POC-GLUCOSE METER 214 mg/dL 70-[address] [facility] ([facility]) (test code [address] [facility] [place] = 1538) [address] BASIC METABOLIC [id number] 06:48:00 Test Item Value Reference Range Interpretation [...] PATIEN TS. CBC W/PLT COUNT & AUTO [id number] 06:23:00 Test Item Value Reference Range Interpretation [...] L 0.00-0.20 (test code = 417) POCT-GLUCOSE [id number] 06:20:00 Test Item Value Reference Range Interpretation Comments POC-GLUCOSE METER 184 mg/dL 70-110 H TESTED AT [address] (BEAKER) (test code [facility] [place] = 1538) [address] POCT-GLUCOSE [id number] 20:47:00 Test Item Value Reference Range Interpretation Comments POC-GLUCOSE METER 323 mg/dL 70-110 H Notified R Mervin SCHULER/TESTED AT ([facility]) (test code [facility] [address] [place] = 1538) [address] [facility] [address] POCT-GLUCOSE [id number] 16:55:00 Test Item Value Reference Range Interpretation Comments POC-GLUCOSE METER 320 mg/dL 70-[address] [facility] [address] ([facility]) (test code [address] [facility] [place] = 1538) [address] B-TYPE NATRIURETIC FACTOR (BNP)2017-09-08 11:28:00 Test Item Value Reference Range Interpretation Comments B-TYPE NATRIURETIC PEPTIDE (BEAKER) 800 pg/mL 0-100 H (test code = 700) TROPONIN [id number] 11:25:00 Test Item Value Reference Range Interpretation [...] acute neurological disease, and persistent tachyarrhythmia.BASIC METABOLIC [id number] 11:17:00 Test Item Value Reference Range Interpretation [...] S NOT APPLICABLE FOR DIALYSIS PATIEN TS. [id number] 11:15:00 Test Item Value Reference Range Interpretation [...] (Auto Output)Final Information (Auto Output)Final Information (Auto Output)[id number] 11:11:00 Test Item Value Reference Range Interpretation Comments MAGNESIUM (BEAKER) (test code = 2.0 mg/dL 1.5-3.0 627) RAD, CHEST, 1 VIEW, NON [id number] 10:55:00Reason for exam:->chest pain FINAL REPORT CLINICAL HISTORY: chest pain TECHNIQUE: 1 view of the chest. COMPARISON: 06/10/2017 IMPRESSION: There is new pulmonary vascular congestion without lobar consolidation. There is blunting of the left costophrenic angle. The cardiomediastinal silhouette is magnified bytechnique with a pacemaker. Signed: Sia Hensley MDReport Verified Date/Time: 09/08/2017 10:55:33Reading Location: [facility] Radiology Reading Room CBC W/PLT COUNT & AUTO [id number] 10:47:00 Test Item Value Reference Range Interpretation [...] 0.00-0.20 (test code = 417) HIV-1 PCR, [id number] 05:37:00 Test Item Value Reference Range Interpretation Comments HIV-1 RESULT HIV RNA not detected HIV RNA not detected COMPONENT (BEAKER) (test code = 2703) This test uses a Real-Time Polymerase Chain Reaction (RT-PCR) methodology to detect a highly conserved region of the HIV-1 gag gene and was performed using the [employer]ER AmpliPrep/JENNIFER TaqMan HIV-1 test kit version 2.0 ([employer]Reportable range for this assay is 20 - 10,000,000 copies per mL (1.3 - 7.0 Log copies/mL).DOUBLE-STRANDED DNA (DSDNA) [id number] 10:04:00 Test Item Value Reference Range Interpretation Comments ANTI-DNA DS (BEAKER) (test code = Negative 1055) TIFF TITER AND [id number] 11:54:00 Test Item Value Reference Range Interpretation Comments TIFF TITER (BEAKER) (test code = :160 1541) TIFF PATTERN (BEAKER) (test code = Homogeneous 1781) ANTI-NUCLEAR ANTIBODY (TIFF)2017-06-14 11:53:00 Test Item Value Reference Range Interpretation Comments ANTI-NUCLEAR ANTIBODY (TIFF) (BEAKER) Positive Negative A (test code = 418) POCT-GLUCOSE [id number] 05:52:00 Test Item Value Reference Range Interpretation Comments POC-GLUCOSE METER 96 mg/dL 70-[address] [facility] ([facility]) (test code = [address] [facility] 1538) [address] BASIC METABOLIC [id number] 05:15:00 Test Item Value Reference Range Interpretation [...] NOT APPLICABLE FOR DIALYSIS PATIEN TS. POCT-GLUCOSE [id number] 05:09:00 Test Item Value Reference Range Interpretation Comments POC-GLUCOSE METER 67 mg/dL 70-110 L TESTED AT [address] ([facility]) ([facility] [address] POCT-GLUCOSE [id number] 21:55:00 Test Item Value Reference Range Interpretation Comments POC-GLUCOSE METER 142 mg/dL 70-110 H TESTED AT [address] ([facility]) (test code [facility] [place] = 1538) [address] POCT-GLUCOSE [id number] 19:05:00 Test Item Value Reference Range Interpretation Comments POC-GLUCOSE METER 139 mg/dL 70-110 H TESTED AT [address] ([facility]) (test code [facility] [place] = 1538) [address] POCT-GLUCOSE [id number] 16:54:00 Test Item Value Reference Range Interpretation Comments POC-GLUCOSE METER 59 mg/dL 70-110 L TESTED AT [address] ([facility]) (test [facility] [address] POCT-GLUCOSE [id number] 13:19:00 Test Item Value Reference Range Interpretation Comments POC-GLUCOSE METER 235 mg/dL 70-110 H TESTED AT [address] ([facility]) (test code [facility] [place] = 1538) [address] POCT-GLUCOSE [id number] 06:52:00 Test Item Value Reference Range Interpretation Comments POC-GLUCOSE METER 113 mg/dL 70-110 H TESTED AT [address] ([facility]) (test code [facility] [place] = 1538) [address] POCT-GLUCOSE [id number] 21:48:00 Test Item Value Reference Range Interpretation Comments POC-GLUCOSE METER 183 mg/dL 70-110 H TESTED AT [address]) (test code [facility] [place] = 1538) [address] POCT-GLUCOSE [id number] 17:22:00 Test Item Value Reference Range Interpretation Comments POC-GLUCOSE METER 262 mg/dL 70-110 H TESTED AT [address]) (test code [facility] = 1538) [address] POCT-GLUCOSE [id number] 12:30:00 Test Item Value Reference Range Interpretation Comments POC-GLUCOSE METER 131 mg/dL 70-110 H TESTED AT [address] ([facility]) (test code [facility] = 1538) [address] MICROALBUMIN, RANDOM [id number] 12:25:00 Test Item Value Reference Range Interpretation Comments MICROALBUMIN URINE ([facility]) (test 59.0 mg/dL code = 1794) Reference Range: No NormalsHEPATITIS PANEL, [id number] 11:31:00 Test Item Value Reference Range Interpretation Comments HEPATITIS A IGM ANTIBODY ([facility]) Nonreactive Nonreactive (test code = 498) HEPATITIS B CORE IGM ANTIBODY Nonreactive Nonreactive ([facility]) (test code = 645) HEPATITIS C ANTIBODY ([facility]) Nonreactive Nonreactive (test code = 367) HEPATITIS B SURFACE ANTIGEN (2) Nonreactive Nonreactive ([facility]) (test code = 2585) COMPLEMENT COMPONENT [id number] 11:09:00 Test Item Value Reference Range Interpretation Comments C4 COMPLEMENT ([facility]) (test code = 28 mg/dL 15-57 394) COMPLEMENT COMPONENT [id number] 11:09:00 Test Item Value Reference Range Interpretation Comments C3 COMPLEMENT ([facility]) (test code = 145 mg/dL 82-193 393) POCT-GLUCOSE [id number] 06:48:00 Test Item Value Reference Range Interpretation Comments POC-GLUCOSE METER 75 mg/dL 70-110 TESTED AT [address] ([facility]) (test code = [address] [facility] 1538) [address] TROPONIN [id number] 05:58:00 Test Item Value Reference Range Interpretation Comments TROPONIN I ([facility]) (test code = 397) < [...] acute neurological disease, and persistent tachyarrhythmia.BASIC METABOLIC [id number] 05:49:00 Test Item Value Reference Range Interpretation [...] S NOT APPLICABLE FOR DIALYSIS PATIEN TS. [id number] 05:48:00 Test Item Value Reference Range Interpretation Comments PHOSPHORUS (BEAKER) (test code = 4.2 mg/dL 2.5-4.5 604) POCT-GLUCOSE [id number] 21:18:00 Test Item Value Reference Range Interpretation Comments POC-GLUCOSE METER 146 mg/dL 70-110 H TESTED AT [address] (BEAKER) (test code [address] [facility] [place] = 1538) [address] TROPONIN [id number] 18:26:00 Test Item Value Reference Range Interpretation [...] acidosis, acute neurological disease, and persistent tachyarrhythmia.POCT-GLUCOSE [id number] 17:07:00 Test Item Value Reference Range Interpretation Comments POC-GLUCOSE METER 97 mg/dL 70-[address] [facility] [address] ([facility]) (test code = [address] [facility] 1538) [address] POCT-GLUCOSE [id number] 13:31:00 Test Item Value Reference Range Interpretation Comments POC-GLUCOSE METER 125 mg/dL 70-[address] [facility] [address] ([facility]) (test code [address] [facility] [place] = 1538) [address] TROPONIN [id number] 06:11:00 Test Item Value Reference Range Interpretation [...] acidosis, acute neurological disease, and persistent tachyarrhythmia.LIPID [id number] 06:05:00 Test Item Value Reference Range Interpretation [...] 130-159 High 160-189 Very High >=190BASIC METABOLIC [id number] 06:03:00 Test Item Value Reference Range Interpretation [...] S NOT APPLICABLE FOR DIALYSIS PATIEN TS. [id number] 05:57:00 Test Item Value Reference Range Interpretation Comments MAGNESIUM (BEAKER) (test code = 1.9 mg/dL 1.5-3.0 627) HEMOGLOBIN [id number] 05:56:00 Test Item Value Reference Range Interpretation Comments HEMOGLOBIN A1C (BEAKER) (test code = 7.7 % 4.3-6.1 H 368) CBC W/PLT COUNT & AUTO [id number] 05:31:00 Test Item Value Reference Range Interpretation [...] L 0.00-0.20 (test code = 417) TROPONIN [id number] 22:53:00 Test Item Value Reference Range Interpretation [...] acute neurological disease, and persistent tachyarrhythmia.U/S, ABDOMINAL, [id number] 22:08:00Reason for exam:->AscitesReason for exam:->BLOATEDFINAL REPORT U/S, [...] MDReport Verified Date/Time: 06/10/2017 22:08:13 Reading Location: [address] Reading Room URINALYSIS W/ REFLEX URINE [id number] 18:41:00 Test Item Value Reference Range Interpretation [...] 1663) SOURCE(BEAKER) (test code = 2795) TROPONIN [id number] 13:07:00 Test Item Value Reference Range Interpretation [...] H (test code = 700) HEPATIC FUNCTION [id number] 12:59:00 Test Item Value Reference Range Interpretation [...] (test code = 23 U/L 5-50 347) [id number] 12:59:00 Test Item Value Reference Range Interpretation Comments LIPASE (BEAKER) (test code = 749) 19 U/L 6-51 BASIC METABOLIC [id number] 12:57:00 Test Item Value Reference Range Interpretation [...] PATIEN TS. CBC W/PLT COUNT & AUTO [id number] 12:37:00 Test Item Value Reference Range Interpretation [...] = 417) RAD, CHEST, 1 VIEW, NON [id number] 12:32:00Reason for exam:->shortness of breathReason for exam:->BLOATEDShould this be performed [facility]?->YesFINAL REPORT Comparison: 04/06/2012 TECHNIQUE: Single view of the chest FINDINGS: Lung volumes are low. Prominence of the cardiac silhouette and vasculature which may be related topoor inspiration and technique . There is no gross consolidation identified. No overt edema or largepleural effusion. Left-sided pacing device noted. No acute skeletal abnormality. Signed: Veronica Bonilla Verified Date/Time: 06/10/2017 12:32:49 Reading Location: [facility] Radiology Reading Room POCT-GLUCOSE [id number] 07:40:00 Test Item Value Reference Range Interpretation Comments POC-GLUCOSE METER 100 mg/dL 70-[address] [facility] [address] (BEAKER) (test code [address] [facility] [place] = 1538) [address] POCT-GLUCOSE [id number] 06:57:00 Test Item Value Reference Range Interpretation Comments POC-GLUCOSE METER 50 mg/dL 70-[address] [facility] [address] (BEAKER) (test code = [address] [facility] [place] 1538) [address] POCT-GLUCOSE [id number] 20:59:00 Test Item Value Reference Range Interpretation Comments POC-GLUCOSE METER 142 mg/dL 70-[address] [facility] [address] (BEAKER) (test code [address] [facility] [place] = 1538) [address] POCT-GLUCOSE [id number] 17:23:00 Test Item Value Reference Range Interpretation Comments POC-GLUCOSE METER 123 mg/dL 70-[address] [facility] [address] [facility] (BEAKER) (test code [address] [facility] [place] = 1538) [address]79 POCT-GLUCOSE [id number] 12:38:00 Test Item Value Reference Range Interpretation Comments POC-GLUCOSE METER 153 mg/dL 70-110 H TESTED AT [address] ([facility] (test code [address] [facility] [place] = 1538) [address] BASIC METABOLIC [id number] 05:49:00 Test Item Value Reference Range Interpretation [...] NOT APPLICABLE FOR DIALYSIS PATIEN TS. POCT-GLUCOSE [id number] 05:36:00 Test Item Value Reference Range Interpretation Comments POC-GLUCOSE METER 74 mg/dL 70-[address] [facility] [address] (BEAKER) (test code = [address] [facility] [place] 1538) 10598 CBC W/PLT COUNT & AUTO [id number] 05:29:00 Test Item Value Reference Range Interpretation [...] L 0.00-0.20 (test code = 417) POCT-GLUCOSE [id number] 19:53:00 Test Item Value Reference Range Interpretation Comments POC-GLUCOSE METER 120 mg/dL 70-110 H TESTED AT [address] ([facility]) (test code [address] [facility] [place] = 1538) [address] POCT-GLUCOSE [id number] 15:41:00 Test Item Value Reference Range Interpretation Comments POC-GLUCOSE METER 135 mg/dL 70-110 H TESTED AT [address] ([facility]) (test code [address] [facility] [place] = 1538) [address] RAD, CHEST, 1 VIEW, NON [id number] 12:31:00Reason for exam:->follow up FINAL REPORT COMPARISON: 04/03/2017 TECHNIQUE: Single view of the chest FINDINGS: Small left pleural effusion with adjacent airspace disease. There is mild vascular congestion elsewhere. Cardiac silhouette is enlarged. Left-sided pacing device noted. Signed: Gab Bonilla MDReport Verified Date/Time: 04/06/2017 12:31:34 Reading Location: [facility] Radiology Reading Room POCT- GLUCOSE [id number] 11:39:00 Test Item Value Reference Range Interpretation Comments POC-GLUCOSE METER 184 mg/dL 70-110 H TESTED AT [address] ([facility]) (test code [address] [facility] [place] = 1538) [address] POCT-GLUCOSE [id number] 07:18:00 Test Item Value Reference Range Interpretation Comments POC-GLUCOSE METER 83 mg/dL 70-110 TESTED AT [address] ([facility]) (test code = [address] [facility] 1538) [address] BASIC METABOLIC [id number] 06:01:00 Test Item Value Reference Range Interpretation [...] = 700) CBC W/PLT COUNT & AUTO [id number] 05:39:00 Test Item Value Reference Range Interpretation [...] L 0.00-0.20 (test code = 417) POCT-GLUCOSE [id number] 21:56:00 Test Item Value Reference Range Interpretation Comments POC-GLUCOSE METER 144 mg/dL 70-110 H TESTED AT [address] ([facility]) (test code POINT [facility] [place] = 1538) [address] POCT-GLUCOSE [id number] 16:38:00 Test Item Value Reference Range Interpretation Comments POC-GLUCOSE METER 153 mg/dL 70-110 H TESTED AT [address] ([facility]) (test code [address] [facility] [place] = 1538) [address] POCT-GLUCOSE [id number] 12:52:00 Test Item Value Reference Range Interpretation Comments POC-GLUCOSE METER 144 mg/dL 70-110 H TESTED AT [address] ([facility]) (test code [address] [facility] [place] = 1538) 14147 POCT-GLUCOSE [id number] 06:07:00 Test Item Value Reference Range Interpretation Comments POC-GLUCOSE METER 124 mg/dL 70-[address] [facility] [address] (BEAKER) (test code [address] [facility] [place] = 1538) 80[address] BASIC METABOLIC [id number] 05:26:00 Test Item Value Reference Range Interpretation [...] S NOT APPLICABLE FOR DIALYSIS PATIEN TS. [id number] 05:20:00 Test Item Value Reference Range Interpretation Comments MAGNESIUM (BEAKER) (test code = 2.4 mg/dL 1.5-3.0 627) CBC W/PLT COUNT & AUTO [id number] 05:19:00 Test Item Value Reference Range Interpretation [...] L 0.00-0.20 (test code = 417) POCT-GLUCOSE [id number] 19:59:00 Test Item Value Reference Range Interpretation Comments POC-GLUCOSE METER 198 mg/dL 70-110 H TESTED AT [address] (BEAKER) (test code [address] [facility] [place] = 1538) [address] POCT-GLUCOSE [id number] 16:34:00 Test Item Value Reference Range Interpretation Comments POC-GLUCOSE METER 230 mg/dL 70-110 H TESTED AT [address] (BEAKER) (test code [address] [facility] [place] = 1538) 79269 POCT-GLUCOSE [id number] 13:02:00 Test Item Value Reference Range Interpretation Comments POC-GLUCOSE METER 273 mg/dL 70-[address] [facility] [address] (BEAKER) (test code [address] [facility] [place] = 1538) [address] B-TYPE NATRIURETIC FACTOR (BNP)2017-04-04 06:55:00 Test Item Value Reference Range Interpretation Comments B-TYPE NATRIURETIC PEPTIDE (BEAKER) 824 pg/mL 0-100 H (test code = 700) BASIC METABOLIC [id number] 06:47:00 Test Item Value Reference Range Interpretation [...] S NOT APPLICABLE FOR DIALYSIS PATIEN TS. [id number] 06:41:00 Test Item Value Reference Range Interpretation Comments MAGNESIUM (BEAKER) (test code = 2.2 mg/dL 1.5-3.0 627) CBC W/PLT COUNT & AUTO [id number] 06:32:00 Test Item Value Reference Range Interpretation [...] 0-100 H (test code = 700) TROPONIN [id number] 12:05:00 Test Item Value Reference Range Interpretation [...] neurological disease, and persistent tachyarrhythmia.RAD, CHEST, 2 [id number] 11:59:00 Reason for exam:->SOBFINAL REPORT History: Shortness [...] MDReport Verified Date/Time: 04/03/2017 11:59:26 Reading Location: [address] Ortho Consult Reading Room BASIC METABOLIC [id number] 11:57:00 Test Item Value Reference Range Interpretation [...] PATIEN TS. CBC W/PLT COUNT & AUTO [id number] 11:42:00 Test Item Value Reference Range Interpretation [...] = 417) RAD, CHEST, 1 VIEW, NON [id number] 11:12:00Reason for exam:->follow up FINAL REPORT Chest, 1 view Clinical history: follow up Comparison: 03/25/2017Discussion: Left-sided pacemaker in position without pneumothorax. Small left pleural effusion is seen with atelectasis. The cardiac silhouette is enlarged with mild perihilar edema. No acute osseous abnormality. Signed: Jamir Mai MDReport Verified Date/Time: 03/27/2017 11:12:12 Reading Location: [address] Ortho Consult Reading Room TROPONIN [id number] 08:29:00 Test Item Value Reference Range Interpretation [...] = 700) CREATINE KINASE (CK), TOTAL AND [id number] 08:27:00 Test Item Value Reference Range Interpretation Comments CREATINE KINASE TOTAL (BEAKER) 303 U/L 40-250 H (test code = 380) CREATINE KINASE-MB (BEAKER) (test 5.9 ng/mL 0.0-4.9 H code = 750) CREATINE KINASE-MB INDEX (BEAKER) 1.9 % (test code = 395) CK-MB Reference Range:<5 Normal5-10 Borderline>10 AbnormalBASIC METABOLIC [id number] 08:18:00 Test Item Value Reference Range Interpretation [...] PATIEN TS. CBC W/PLT COUNT & AUTO [id number] 07:44:00 Test Item Value Reference Range Interpretation [...] L 0.00-0.20 (test code = 417) POCT-GLUCOSE [id number] 05:54:00 Test Item Value Reference Range Interpretation Comments POC-GLUCOSE METER 226 mg/dL 70-110 H TESTED AT [address] ([facility]) (test code [address] [facility] [place] = 1538) [address] POCT-GLUCOSE [id number] 20:54:00 Test Item Value Reference Range Interpretation Comments POC-GLUCOSE METER 180 mg/dL 70-110 H TESTED AT [address] ([facility]) (test code [address] [facility] [place] = 1538) 79506 POCT-GLUCOSE [id number] 16:40:00 Test Item Value Reference Range Interpretation Comments POC-GLUCOSE METER 262 mg/dL 70-110 H TESTED AT [address] ([facility]) (test code [address] [facility] [place] = 1538) [address]77 LIPID [id number] 15:41:00 Test Item Value Reference Range Interpretation Comments TRIGLYCERIDES (BEAKER) (test code = 86 mg/dL 540) CHOLESTEROL (BEAKER) (test code = 203 mg/dL 631) HDL CHOLESTEROL (BEAKER) (test code 33 mg/dL = 976) LDL CHOLESTEROL CALCULATED (BEAKER) 153 mg/dL (test code = 633) Triglyceride Reference Range: Low Risk <150 Borderline 150-199 High Risk 200-499 Very High Risk >=500Cholesterol Reference Range: Low Risk <200 Borderline 200-239 High Risk >240HDL Cholesterol Reference Range: Low Risk >=60 High Risk <40LDL Cholesterol Reference Range: Optimal <100 Near Optimal 100-129 Borderline 130-159 High 160-189 Very High >=190TSH/FREE T4 IF [id number] 15:27:00 Test Item Value Reference Range Interpretation Comments THYROID STIMULATING HORMONE 4.34 uIU/mL 0.35-5.50 (BEAKER) (test code = 772) TROPONIN [id number] 15:18:00 Test Item Value Reference Range Interpretation [...] H (test code = 700) BASIC METABOLIC [id number] 15:03:00 Test Item Value Reference Range Interpretation [...] NOT APPLICABLE FOR DIALYSIS PATIEN TS. HEMOGLOBIN [id number] 08:23:00 Test Item Value Reference Range Interpretation Comments HEMOGLOBIN A1C (BEAKER) (test code = 8.8 % 4.3-6.1 H 368) CBC W/PLT COUNT & AUTO [id number] 07:23:00 Test Item Value Reference Range Interpretation [...] L 0.00-0.20 (test code = 417) POCT-GLUCOSE [id number] 06:53:00 Test Item Value Reference Range Interpretation Comments POC-GLUCOSE METER 176 mg/dL 70-110 H TESTED AT [address] ([facility]) (test code [address] [facility] [place] = 1538) [address] TROPONIN [id number] 23:25:00 Test Item Value Reference Range Interpretation Comments TROPONIN I ([facility]) (test code = 0.58 ng/mL 0.00-0.15 [facility]) Troponin I (TnI) levels must be interpreted [...] Reference Range Interpretation Comments CREATINE KINASE TOTAL (CECILIO) 294 U/L 40-250 H (test code = 380) CREATINE KINASE-MB (CECLIIO) (test 5.1 ng/mL 0.0-4.9 H code = 750) CREATINE KINASE-MB INDEX (CECILIO) 1.7 % (test code = 395) CK-MB Reference Range:<5 Normal5-10 Borderline>10 AbnormalPOCT-GLUCOSE [id number] 20:54:00 Test Item Value Reference Range Interpretation Comments POC-GLUCOSE METER 157 mg/dL 70-110 H TESTED AT [address] (CECILIO) (test code [address] [facility] [place] = 1538) 15[address] TROPONIN [id number] 14:46:00 Test Item Value Reference Range Interpretation [...] 0-100 H (test code = 700) PROTHROMBIN [id number] 14:42:00 Test Item Value Reference Range Interpretation Comments PROTIME (CECILIO) (test code = 11.4 seconds 9.3-12.0 759) INR (CECILIO) (test code = 370) 1.1 <=5.9 RECOMMENDED COUMADIN/WARFARIN INR THERAPY RANGESSTANDARD DOSE: 2.0 - 3.0 Includes: PROPHYLAXIS forvenous thrombosis, systemic embolization; TREATMENT for venous thrombosis and/or pulmonary embolus.HIGH RISK: Target INR is 2.5-3.5 for patients with mechanical heart valves.[id number] 14:42:00 Test Item Value Reference Range Interpretation Comments PARTIAL THROMBOPLASTIN TIME 27.0 seconds 23.0-35.0 (BEAKER) (test code = 760) CREATINE KINASE (CK), TOTAL AND [id number] 14:41:00 Test Item Value Reference Range Interpretation Comments CREATINE KINASE TOTAL (BEAKER) 328 U/L 40-250 H (test code = 380) CREATINE KINASE-MB (BEAKER) (test 5.9 ng/mL 0.0-4.9 H code = 750) CREATINE KINASE-MB INDEX (BEAKER) 1.8 % (test code = 395) CK-MB Reference Range:<5 Normal5-10 Borderline>10 AbnormalCOMPREHENSIVE METABOLIC [id number] 14:34:00 Test Item Value Reference Range Interpretation [...] PATIEN TS. CBC W/PLT COUNT & AUTO [id number] 14:04:00 Test Item Value Reference Range Interpretation [...] = 417) RAD, CHEST, 1 VIEW, NON [id number] 13:52:00Reason for exam:->SHORTNESS OF BREATHReason for exam:->EDEMAShould [...] Kilgoreeport Verified Date/Time: 03/25/2017 13:52:22 Reading Location: [facility] Radiology Reading Room POCT- GLUCOSE [id number] 12:04:00 Test Item Value Reference Range Interpretation Comments POC-GLUCOSE METER 171 mg/dL 70-110 H TESTED AT [address] ([facility]) (test code POINT [facility] = 1538) 300[address] BASIC METABOLIC [id number] 08:14:00 Test Item Value Reference Range Interpretation [...] PATIEN TS. CBC W/PLT COUNT & AUTO [id number] 07:57:00 Test Item Value Reference Range Interpretation [...] NEUTROPHILS ABSOLUTE COUNT 6.70 K/ L 1.80-8.00 ([facility]) (test code = 670) LYMPHOCYTES ABSOLUTE COUNT 2.40 K/ L 1.48-4.50 (BEAKER) (test code = 414) MONOCYTES ABSOLUTE COUNT (BEAKER) 0.80 K/ L 0.00-1.30 (test code = 415) EOSINOPHILS ABSOLUTE COUNT 0.30 K/ L 0.00-0.50 (BEAKER) (test code = 416) BASOPHILS ABSOLUTE COUNT (AKER) 0.10 K/ L 0.00-0.20 (test code = 417) POCT-GLUCOSE [id number] 07:11:00 Test Item Value Reference Range Interpretation Comments POC-GLUCOSE METER 164 mg/dL 70-110 H TESTED AT [address] ([facility]) (test code [facility] [facility] [place] = 1538) 0[address] POCT-GLUCOSE [id number] 22:24:00 Test Item Value Reference Range Interpretation Comments POC-GLUCOSE METER 222 mg/dL 70-110 H TESTED AT [address] ([facility]) (test code [address] [facility] [place] = 1538) [address] POCT-GLUCOSE [id number] 17:12:00 Test Item Value Reference Range Interpretation Comments POC-GLUCOSE METER 187 mg/dL 70-110 H TESTED AT [address] ([facility]) (test code [address] [facility] [place] = 1538) [address] POCT-GLUCOSE [id number] 17:12:00 Test Item Value Reference Range Interpretation Comments POC-GLUCOSE METER 190 mg/dL 70-110 H TESTED AT [address] ([facility]) (test code [address] [facility] [place] = 1538) 7[address] POCT-GLUCOSE [id number] 05:55:00 Test Item Value Reference Range Interpretation Comments POC-GLUCOSE METER 181 mg/dL 70-110 H TESTED AT [address] ([facility]) (test code [facility] [facility] [place] = 1538) 38089 POCT-GLUCOSE [id number] 21:23:00 Test Item Value Reference Range Interpretation Comments POC-GLUCOSE METER 305 mg/dL 70-110 H Baby teste d Mother ID ([facility]) (test code used/[place] [address] = 1538) [facility] [place] [facility] [address] POCT-GLUCOSE [id number] 19:05:00 Test Item Value Reference Range Interpretation Comments POC-GLUCOSE METER 181 mg/dL 70-110 H TESTED AT [address] ([facility]) (test code [facility] [place] = 1538) 13708 POCT-GLUCOSE [id number] 19:04:00 Test Item Value Reference Range Interpretation Comments POC-GLUCOSE METER 252 mg/dL 70-110 H TESTED AT [address] ([facility]) (test code [address] [facility] [place] = 1538) [address]396 POCT-GLUCOSE [id number] 19:04:00 Test Item Value Reference Range Interpretation Comments POC-GLUCOSE METER 175 mg/dL 70-110 H TESTED AT [address] ([facility]) (test code [address] [facility] [place] = 1538) 67[address] POCT-GLUCOSE [id number] 06:14:00 Test Item Value Reference Range Interpretation Comments POC-GLUCOSE METER 212 mg/dL 70-110 H TESTED AT [address] ([facility]) (test code [facility] [place] = 1538) [address] CREATINE KINASE (CK), TOTAL AND [id number] 03:39:00 Test Item Value Reference Range Interpretation Comments CREATINE KINASE TOTAL ([facility]) 174 U/L 40-250 (test code = 380) CREATINE KINASE-MB ([facility]) (test 4.7 ng/mL 0.0-4.9 code = 750) CREATINE KINASE-MB INDEX ([facility]) 2.7 % (test code = 395) CK-MB Reference Range:<5 Normal5-10 Borderline>10 AbnormalTROPONIN I 2017-02-05 03:39:00 Test Item Value Reference Range Interpretation Comments TROPONIN I ([facility]) (test code = 0.07 ng/mL [...] acidosis, acute neurological disease, and persistent tachyarrhythmia.LIPID [id number] 03:33:00 Test Item Value Reference Range Interpretation [...] 130-159 High 160-189 Very High >=190BASIC METABOLIC [id number] 03:31:00 Test Item Value Reference Range Interpretation [...] NOT APPLICABLE FOR DIALYSIS PATIEN TS. HEMOGLOBIN [id number] 03:30:00 Test Item Value Reference Range Interpretation Comments HEMOGLOBIN A1C (BEAKER) (test code = 9.7 % 4.3-6.1 H 368) CBC W/PLT COUNT & AUTO [id number] 03:18:00 Test Item Value Reference Range Interpretation [...] L 0.00-0.20 (test code = 417) POCT-GLUCOSE [id number] 21:13:00 Test Item Value Reference Range Interpretation Comments POC-GLUCOSE METER 285 mg/dL 70-110 H TESTED AT [address] ([facility]) (test code [address] [facility] [place] = 1538) [address] POCT-GLUCOSE [id number] 21:13:00 Test Item Value Reference Range Interpretation Comments POC-GLUCOSE METER 288 mg/dL 70-[address] [facility] ([facility]) (test code [address] [facility] [place] = 1538) [address] CREATINE KINASE (CK), TOTAL AND [id number] 16:27:00 Test Item Value Reference Range Interpretation Comments CREATINE KINASE TOTAL ([facility]) 202 U/L 40-250 (test code = 380) CREATINE KINASE-MB ([facility]) (test 7.3 ng/mL 0.0-4.9 H code = 750) CREATINE KINASE-MB INDEX ([facility]) 3.6 % (test code = 395) CK-MB Reference Range:<5 Normal5-10 Borderline>10 AbnormalTROPONIN I 2017-02-04 16:26:00 Test Item Value Reference Range Interpretation Comments TROPONIN I ([facility]) (test code = 0.05 ng/mL [...] and persistent tachyarrhythmia.RAD, CHEST, 1 VIEW, NON [id number] 09:17:00Reason for exam:->chest painFINAL REPORT Chest one [...] No pneumothorax. Osseous structures are intact. Signed: Janet, Lacie MDReport Verified Date/Time: 02/04/2017 09:17:01 Reading Location: [facility] Radiology Reading Room TROPONIN [id number] 09:14:00 Test Item Value Reference Range Interpretation [...] = 700) CREATINE KINASE (CK), TOTAL AND [id number] 09:13:00 Test Item Value Reference Range Interpretation Comments CREATINE KINASE TOTAL (BEAKER) 235 U/L 40-250 (test code = 380) CREATINE KINASE-MB (BEAKER) (test 6.0 ng/mL 0.0-4.9 H code = 750) CREATINE KINASE-MB INDEX (BEAKER) 2.6 % (test code = 395) CK-MB Reference Range:<5 Normal5-10 Borderline>10 AbnormalBASIC METABOLIC [id number] 09:05:00 Test Item Value Reference Range Interpretation [...] S NOT APPLICABLE FOR DIALYSIS PATIEN TS. [id number] 09:03:00 Test Item Value Reference Range Interpretation [...] is 2.5-3.5 for patients with mechanical heart valves.[id number] 09:00:00 Test Item Value Reference Range Interpretation Comments MAGNESIUM (BEAKER) (test code = 2.0 mg/dL 1.5-3.0 627) CBC W/PLT COUNT & AUTO [id number] 08:50:00 Test Item Value Reference Range Interpretation [...] = 700) CREATINE KINASE (CK), TOTAL AND [id number] 11:53:00 Test Item Value Reference Range Interpretation Comments CREATINE KINASE TOTAL (BEAKER) 228 U/L 40-250 (test code = 380) CREATINE KINASE-MB (BEAKER) (test 4.8 ng/mL 0.0-4.9 code = 750) CREATINE KINASE-MB INDEX (BEAKER) 2.1 % (test code = 395) CK-MB Reference Range:<5 Normal5-10 Borderline>10 AbnormalBASIC METABOLIC [id number] 11:52:00 Test Item Value Reference Range Interpretation [...] NOT APPLICABLE FOR DIALYSIS PATIEN TS. TROPONIN [id number] 11:40:00 Test Item Value Reference Range Interpretation [...] acidosis, acute neurological disease, and persistent tachyarrhythmia.PROTHROMBIN [id number] 10:16:00 Test Item Value Reference Range Interpretation [...] = 417) RAD, CHEST, 1 VIEW, NON [id number] 09:42:00Reason for exam:->SHORTNESS OF BREATHOn \\T\\ off [...] MDReport Verified Date/Time: 12/01/2016 09:42:01 Reading Location: [facility] Radiology Reading Room POCT-GLUCOSE [id number] 18:07:00 Test Item Value Reference Range Interpretation Comments POC-GLUCOSE METER 159 mg/dL 70-110 H TESTED AT [address] (test code [address] [facility] [place] = 1538) [address] POCT-GLUCOSE [id number] 13:56:00 Test Item Value Reference Range Interpretation Comments POC-GLUCOSE METER 218 mg/dL 70-110 H TESTED AT [address]) (test code [address] [facility] [place] = 1538) [address] POCT-GLUCOSE [id number] 06:26:00 Test Item Value Reference Range Interpretation Comments POC-GLUCOSE METER 118 mg/dL 70-110 H TESTED AT [address] (test code [address] [facility] [place] = 1538) [id number] HEMOGLOBIN [id number] 02:55:00 Test Item Value Reference Range Interpretation Comments HEMOGLOBIN A1C ([facility]) (test code = 9.3 % 4.3-6.1 H 368) TROPONIN [id number] 02:45:00 Test Item Value Reference Range Interpretation Comments TROPONIN I ([facility]) (test code = 0.04 ng/mL [...] 130-159 High 160-189 Very High >=190BASIC METABOLIC [id number] 02:38:00 Test Item Value Reference Range Interpretation [...] PATIEN TS. CBC W/PLT COUNT & AUTO [id number] 02:37:00 Test Item Value Reference Range Interpretation [...] L 0.00-0.20 (test code = 417) POCT-GLUCOSE [id number] 21:41:00 Test Item Value Reference Range Interpretation Comments POC-GLUCOSE METER 222 mg/dL 70-110 H TESTED AT [address] ([facility]) (test code [facility] [facility] [place] = 1538) [id number] POCT-GLUCOSE [id number] 17:42:00 Test Item Value Reference Range Interpretation Comments POC-GLUCOSE METER 187 mg/dL 70-110 H TESTED AT [address] ([facility]) (test code [facility] [place] = 1538) [address] TROPONIN [id number] 17:08:00 Test Item Value Reference Range Interpretation [...] 395) CK-MB Reference Range:<5 Normal5-10 Borderline>10 AbnormalPOCT-GLUCOSE [id number] 12:19:00 Test Item Value Reference Range Interpretation Comments POC-GLUCOSE METER 284 mg/dL 70-[address] [facility] [address] (BEAKER) (test code [facility] [facility] [place] = 1535) [address] URINALYSIS W/ REFLEX URINE [id number] 08:37:00 Test Item Value Reference Range Interpretation [...] 0-100 H (test code = 700) CALCIUM, [id number] 06:41:00 Test Item Value Reference Range Interpretation Comments CALCIUM IONIZED (BEAKER) (test 1.14 mmol/L 1.12-1.27 code = 698) PH, BLOOD (BEAKER) (test code = 7.43 1810) CREATINE KINASE (CK), TOTAL AND [id number] 06:14:00 Test Item Value Reference Range Interpretation [...] 0.00-0.20 (test code = 417) BASIC METABOLIC [id number] 06:08:00 Test Item Value Reference Range Interpretation [...] NOT APPLICABLE FOR DIALYSIS PATIEN TS. PROTHROMBIN [id number] 06:01:00 Test Item Value Reference Range Interpretation Comments PROTIME (BEAKER) (test code = 10.2 seconds 9.3-12.0 759) INR (BEAKER) (test code = 370) 1.0 <=5.9 RECOMMENDED COUMADIN/WARFARIN INR THERAPY RANGESSTANDARD DOSE: 2.0 - 3.0 Includes: PROPHYLAXIS forvenous thrombosis, systemic embolization; TREATMENT for venous thrombosis and/or pulmonary embolus.HIGH RISK: Target INR is 2.5-3.5 for patients with mechanical heart valves.TROPONIN [id number] 05:35:00 Test Item Value Reference Range Interpretation [...] CK-MB Reference Range:<5 Normal5-10 Borderline>10 AbnormalBASIC METABOLIC [id number] 05:27:00 Test Item Value Reference Range Interpretation [...] PATIEN TS. CBC W/PLT COUNT & AUTO [id number] 05:11:00 Test Item Value Reference Range Interpretation [...]
== END 2021-10-15 19:30 | disposition left against medical advice (07) | DRG 682 ==
LOC: ER 16:33 → ERHOLD 20:06 → 2ND 21:27
PROVIDERS: ADMIT Internal Medicine; ATTEND Internal Medicine
PROC: 5A1D70Z Performance of Urinary Filtration, Intermittent, Less than 6 Hours Per Day (ICD-10-PCS; 2021-10-08)
PROC: 02HV33Z Insertion of Infusion Device into Superior Vena Cava, Percutaneous Approach (ICD-10-PCS; principal; 2021-10-09 07:30)
PROC: 5A1D70Z Performance of Urinary Filtration, Intermittent, Less than 6 Hours Per Day (ICD-10-PCS; 2021-10-10)
PROC: 5A1D70Z Performance of Urinary Filtration, Intermittent, Less than 6 Hours Per Day (ICD-10-PCS; 2021-10-13)
PROC: 0TB13ZX Excision of Left Kidney, Percutaneous Approach, Diagnostic (ICD-10-PCS; 2021-10-15)
PROC: 5A1D70Z Performance of Urinary Filtration, Intermittent, Less than 6 Hours Per Day (ICD-10-PCS; 2021-10-15)
PROC: 30233N1 Transfusion of Nonautologous Red Blood Cells into Peripheral Vein, Percutaneous Approach (ICD-10-PCS; 2021-10-15)
DX: N17.9 Acute kidney failure, unspecified (principal); I50.43 Acute on chronic combined systolic (congestive) and diastolic (congestive) heart failure; E87.2 Acidosis; I13.2 Hypertensive heart and chronic kidney disease with heart failure and with stage 5 chronic kidney disease, or end stage renal disease; N18.6 End stage renal disease; N25.81 Secondary hyperparathyroidism of renal origin; E11.22 Type 2 diabetes mellitus with diabetic chronic kidney disease; I25.10 Atherosclerotic heart disease of native coronary artery without angina pectoris; M10.9 Gout, unspecified; E78.5 Hyperlipidemia, unspecified; I27.20 Pulmonary hypertension, unspecified; R31.29 Other microscopic hematuria; S46.001A Unspecified injury of muscle(s) and tendon(s) of the rotator cuff of right shoulder, initial encounter; E87.5 Hyperkalemia; R00.0 Tachycardia, unspecified; I07.1 Rheumatic tricuspid insufficiency; Z53.29 Procedure and treatment not carried out because of patient's decision for other reasons; D63.1 Anemia in chronic kidney disease; I25.2 Old myocardial infarction; Z20.822 Contact with and (suspected) exposure to COVID-19; Z79.4 Long term (current) use of insulin; Z86.73 Personal history of transient ischemic attack (TIA), and cerebral infarction without residual deficits; Z95.810 Presence of automatic (implantable) cardiac defibrillator; Z86.711 Personal history of pulmonary embolism; Z79.01 Long term (current) use of anticoagulants; Z99.2 Dependence on renal dialysis; L97.529 Non-pressure chronic ulcer of other part of left foot with unspecified severity
CPT/HCPCS: 36415; 36430; 70450; 71045; 71250; 76000; 76770; 78452; 80048; 80053; 80069; 81003; 81015; 82306; 82550; 82570; 82947; 83520; 83735; 83880; 83935; 83970; 84100; 84132; 84145; 84156; 84300; 84484; 84550; 85025; 85027; 85610; 85730; 86021; 86038; 86160; 86225; 86430; 86704; 86706; 86803; 86850; 86900; 86901; 86927; 87086; 87088; 87340; 87389; 87522; 88300; 90935; 93005; 93017; 93306; 94010; 99285; A9500; C1752; C1769; J0690; J1170; J1644; J1815; J2250; J2270; J2310; J2370; J2405; J2704; J2785; J3010; J3430; J7030; J7040; J7050; P9017; U0003

== ENCOUNTER 2021-10-29 16:42 | Emergency (ER) | payer OTHER, SELFPAY ==
[2021-10-29] MEDS ORDERED: Caclcium Chloride 10% INJ SYR IV ONE (16:43)
[2021-10-29] MEDS ORDERED: EPINEPHrine 1 MG/10 ML SYR IV ONE (16:43)
[2021-10-29] MEDS ORDERED: MIDAZOLAM HCL 2 MG/2 ML INJ ONE (17:09)
[2021-10-29] MEDS ORDERED: NOREPINEPHRINE BITARTRATE/D5W 4 MG/250 ML BAG IV ONE (17:27)
[2021-10-29 17:37] LABS: Absolute Lymphocytes (CBC) 2.7 K/uL (0.7-4.9); Lymphocytes % 21.5 % (15.3-44.8); MCV 96.6 fL (80-100); RBC Red Blood Cell Count 4.04 M/uL (4.33-5.43)
[2021-10-29 17:39] LABS: Protime INR 1.67
--- OUTSIDE RECORDS SUMMARY | 2021-10-29 17:50 | XMS REPORT | Continuity of Care Document ---
:1975 Author Organization [facility] t Address [address] [place] [address] [address]. [address] [place] [address] Care Team Providers Name Role Phone NAIF ENRIQUEZ Primary Care Physician Unavailable DINORA ABARCA Attending Clinician [phone] MIRTA CONTRERAS Attending Clinician Unavailable MIRTA CONTRERAS Attending Clinician [phone] DR LAURA NGUYEN Attending Clinician Unavailable YANDY LAWSON Attending Clinician [phone] SAMANTHA RYAN Attending Clinician [phone] NURSE, NURSE Attending Clinician Unavailable JOSEE FRANZ Attending Clinician Unavailable JOSEE FRANZ Attending Clinician [phone] DR MIRTA CONTRERAS Attending Clinician Unavailable Venkatesh SCHULER, David Wang Attending Clinician Abdiel Hensley MD Attending Clinician Parish SCHULER, Fidelina Pedersen Attending Clinician [phone] Laura Nguyen MD Attending Clinician Joanie SCHULER, Sourav Worthy Attending Clinician NAIF ENRIQUEZ Attending Clinician Unavailable NAIF ENRIQUEZ Attending Clinician [phone] SUKUMAR IRIZARRY Attending Clinician Unavailable SUKUMAR IRIZARRY Attending Clinician [phone] Colt Serra MD Attending Clinician Abel Alatorre MD Attending Clinician Rhonda SCHULER, Meera Attending Clinician Frandy Lugo MD Attending Clinician Phillip Blunt MD Attending Clinician LUBNA, SON Attending Clinician Unavailable LUBNA, SON Attending Clinician [phone] YOHANA HUMMEL Attending Clinician Unavailable COLT SERRA Attending Clinician Unavailable [facility], PROVIDER Attending Clinician Unavailable COMPA MURGUIA Attending Clinician Unavailable CAROLYN NUNEZ Attending Clinician [phone] MAEVE MCDANIEL Attending Clinician Unavailable SEBASTIAN MARQUIS Attending Clinician Unavailable FIDELINA MURGUIA Attending Clinician Unavailable SUKI KULKARNI Attending Clinician Unavailable VITA EM Attending Clinician [phone] ALEXANDER POSADA Attending Clinician Unavailable CHARLY BARDALES Attending Clinician Unavailable CHRISTINA MENDIETA Attending Clinician [phone] LAVELLE BAR Attending Clinician Unavailable OSMAN ALFRED Attending Clinician Unavailable LEIDY OBRIEN Attending Clinician Unavailable FRANKLIN CARRASQUILLO Attending Clinician Unavailable MELVA DIXON Attending Clinician Unavailable NAIMA COOPER Attending Clinician Unavailable DR LAURA NGUYEN Admitting Clinician Unavailable DR MIRTA CONTRERAS Admitting Clinician Unavailable ABDIEL HENSLEY Admitting Clinician Unavailable MEERA VYAS Admitting Clinician Unavailable ALYX HUTCHINS Admitting Clinician Unavailable CATHY CHAMBERLAIN Admitting Clinician Unavailable GINGER RIDLEY Admitting Clinician Unavailable AZRA VELASQUEZ Admitting Clinician Unavailable DARIO WILLS Admitting Clinician Unavailable KO WALTON Admitting Clinician Unavailable Payers Payer Name Policy Type Policy Number Effective Date Expiration Date S ource 1000 [id number] 1959 00:00:00 0165 [id number] 1959 00:00:00 [facility] - [id number] GENERIC - JAVI CARE [facility]-MEDICAID - [id number] MEDICAID MEDICARE PART A [id number] 2019 \\T\\ B - MEDICARE 00:00:00 Problems [...] EKG [facility] NSTEMI NSTEMI Disease [...] St n by n by 10-17 [facility] Sarcoptes Sarc[facility]es 00:00: g of this M edical scabiei scabiei 00 note Center might be different from the original. 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 UPDATED BY ICD10 SNOMED/IM O UPDATES Hypertensi Hypertensi Disease Active C [facility] on on [facility] Diabetes Diabetes Disease [facility] mellitus [facility] Diabetic Diabetic Disease Active [facility] neuropathy neuropathy [facility] Hyperlipid Hyperlipid Disease Active [facility] em[facility] em[facility] Carpal Carpal Disease Active [facility] tunnel tunnel [facility] syndrome syndrome [facility] [place] [facility] Allergies, Adverse Reactions, Alerts Allergy Allergy Status Severity Reaction(s) Onset Inactive Treating Comm ents Source Name Type Date Date Clinician NO KNOWN Allergy Active [facility] Social History Social Habit Start Date Stop Date Quantity Comments Source Alcohol intake 2019-07-03 [facility] 00:00:00 History of tobacco 2019-04-04 Current non-smoker [facility] use 00:00:00 Nutritional 2019-04-04 [facility] observable 00:00:00 Tobacco use and 2019-04-04 : No Details [facility] ealt exposure 00:00:00 Available Quantity Details - : No Details Available Health-related 2019-04-04 [facility] Behavior 00:00:00 Sex Assigned At Male [facility] History SDOH [facility] Alcohol Frequency Medical Center History SDOH [facility] Alcohol Std Drinks Medica l Center History SDOH [facility] Alcohol Binge Medical [facility] Cigarettes smoked 2016-01-08 2016-01-[address] [facility] current (pack per 00:00:00 00:00:00 Medical Center day) - Reported Cigarette 2016-01-08 2016-01-[address] [facility] pack-years 00:00:00 00:00:00 [facility] Alcohol Comment 2012-10-15 2012-10-[address] [facility] 00:[facility] Center Smoking Status Start Date Stop Date Source Unknown if ever smoked [facility] Former smoker 2020-04-26 00:00:00 2020-04-26 00:00:00 [facility] Never smoker [facility] Medications Ordered Filled Start Stop Current Ordering Indication Dosage Frequency Signature Comments Components Source Medication Medication Date Date Medication? Clinician (SIG) Name Name metolazone No take 1 [facility] 5 mg tablet 5-10 tablet by eal th 00:00: oral route 00 every day metolazone [...] 0 No 1{table Q1D take 1 Acc ess[facility] [...] 0 No 1{table Q1D take 1 Acc ess[facility] 25 mg 2-15 t} tablet by [facility] tablet 00:00: oral route 00 every day rosuvastati 0 No 1{table Q1D take 1 A ccessH [...] day metolazone 0 No take 1 [facility]es [facility] 5 mg tablet 2-15 tablet by eal th 00:00: oral route 00 every day isosorbide 2022-0 No take 1 [facility] mononitrate 2-15 tablet (60 ea lth ER 60 mg 00:00: mg) by tablet,exte 00 oral route nded once daily release 24 in the hr morning gabapentin 2021- No 1{table Q8H take 1 Ac cess[facility] [...] release 24 in the hr morning gabapentin 2021- No 1{table Q8H take 1 Ac cess[facility] [...] oral route 00 every day metolazone 0 2021- No take 1 Acce ss[facility] 5 mg tablet 2-15 05-10 tablet by [facility] 00:00: 00:00 oral route 00 :00 every day metolazone 2021- No take 1 Acce ss[facility] 5 mg tablet 2-15 05-10 tablet by [facility] 00:00: 00:00 oral route 00 :00 [...] three times a day before meals Humalog 2021-0 2021- No inject [facility] KwikPen 2-15 03-29 5-10 Units [facility] (U-100) 00:00: 00:00 by Insulin 100 00 :00 Subcutaneo unit/mL us route 3 subcutaneou times per s day on a medium sliding scale three times a day before meals Humalog 2021-2021- No inject [facility] KwikPen 2-15 -29 5-10 Units [facility] (U-100) 00:00: 00:00 by Insulin 100 00 :00 Subcutaneo unit/mL us route 3 subcutaneou times per s day on a medium sliding scale three times a day before meals Aldactone 2021-2021- No 1{table Q1D take 1 Ac cess[facility] 25 mg 2-15 02-15 t} tablet by [facility] tablet 00:00: 00:00 oral route 00 :00 every day carvedilol 2021-0 2021- No TAKE ONE Ac cessH 12.5 mg 2-15 02-15 TABLET BY [facility] tablet 00:00: 00:00 MOUTH 00 :00 TWICE A DAY WITH FOOD Aldactone 2021-2021- No 1{table Q1D take 1 Ac cessH [...] :00 TWICE A DAY WITH FOOD CARVEDILOL 2-0 2021- No TAKE ONE Ac cessH 12.5 MG 2-14 02-15 TABLET BY [facility] TABLET 00:00: 00:00 MOUTH 00 :00 TWICE A DAY WITH FOOD CARVEDILOL 2021-0 2021- No TAKE ONE Ac cessH 12.5 MG 2-14 02-15 TABLET BY [facility] TABLET 00:00: 00:00 MOUTH 00 :00 TWICE A DAY WITH FOOD CARVEDILOL 2-0 2021- No TAKE ONE Ac cessH 12.5 MG 2-14 02-15 TABLET BY [facility] TABLET 00:00: 00:00 MOUTH 00 :00 TWICE A DAY WITH FOOD CARVEDILOL 2-0 2021- No TAKE ONE Ac cessH 12.5 MG 2-14 02-15 TABLET BY [facility]alth TABLET 00:00: 00:00 MOUTH 00 :00 TWICE A DAY WITH FOOD CARVEDILOL 2022-0 2022- No TAKE ONE Ac cessH 12.5 MG 2-14 02-15 TABLET BY [facility]alth TABLET 00:00: 00:00 MOUTH 00 :00 TWICE A DAY WITH FOOD CARVEDILOL 2022-0 2- No TAKE ONE Ac cessH 12.5 MG 2-14 02-15 TABLET BY [facility] TABLET 00:00: 00:00 MOUTH 00 :00 TWICE A DAY WITH FOOD CARVEDILOL 2-0 2- No TAKE ONE Ac cess[facility] 12.5 MG [...] Q1D take 1 [facility] n 40 mg 215 t} tablet by [facility] tablet 00:00: 00:00 [...] OTHER day isosorbide 2021- No take 1 [facility]es [facility] mononitrate 1-05 [...] 00 oral route every OTHER day isosorbide 2021-0 [...] No take 1 Acc ess[facility] 75 mg 1- 02-15 tablet (75 [facility] tablet 00:00: 00:00 [...] No take 1 Acc ess[facility] 75 mg 1- 02-15 tablet (75 [facility] tablet 00:00: 00:00 [...] No take 1 Acc ess[facility] 75 mg 04-0215 tablet (75 [facility] tablet 00:00: 00:00 mg) by 00 :00 oral route once daily allopurinol 2021- No take 1/2 Dx: A ccessH 100 mg 04-0215 tablet (50 M10.449, ea lth tablet 00:00: 00:00 mg) by N18.32 00 :00 oral route every OTHER day isosorbide 2021- No take 1 Acce ssH mononitrate 04-0215 tablet (60 e alth ER 60 mg 00:00: 00:00 mg) by tablet,exte 00 :00 oral route nded once daily release 24 in the hr morning clopidogrel 2021- No take 1 Acc ess[facility] 75 mg 04-0215 tablet (75 [facility] tablet 00:00: 00:00 mg) [...] sH 1 mg tablet 2-30 tablet (1 ea 00:00: mg) by 00 oral route 2 [...] 1 Acce ssH 5 mg tablet 2-30 02-15 tablet by ea lth 00:00: 00:00 oral route 00 :00 every day bumetanide 2020-03- No take 1 Acce ss[facility] 1 mg tablet 2-30 02-15 tablet (1 ea lt 00:00: 00:00 mg) by 00 :00 oral route 2 times per day amlodipine 2020-03- No take 1 Acce ss[facility] 5 mg tablet 2-30 02-15 tablet (5 ea lt 00:00: 00:00 mg) [...] 5 mg tablet 2-15 tablet by ea [facility] 00:00: 00:00 oral route 00 :00 every day bumetanide 2020-03- No take 1 Acce ssH 1 mg tablet 2-15 tablet (1 ea lt 00:00: 00:00 mg) [...] 1 mg tablet 2-15 tablet (1 ea lt 00:00: 00:00 mg) [...] 1 mg tablet 2-15 tablet (1 ea lt 00:00: 00:00 mg) [...] 2 times every day with food rosuvastati 2021-1 2022- No 1{table Q1D take 1 [facility] n 40 mg 2-30 02-03 t} tablet by [facility] tablet 00:00: 00:00 oral route 00 :00 every day rosuvastati 2020-2021- No 1{table Q1D take 1 [facility] n 40 mg 2-30 02-03 t} tablet by [facility] tablet 00:00: 00:00 oral route 00 :00 every day rosuvastati 2020-2021- No 1{table Q1D take 1 [facility] n 40 mg 2-30 02-03 t} tablet by [facility] tablet 00:00: 00:00 oral route 00 :00 every day rosuvastati 2020-03- No 1{table Q1D take 1 [facility] n 40 mg 2-30 02-03 t} tablet by [facility] tablet 00:00: 00:00 oral route 00 :00 every day rosuvastati 2020- 202- No 1{table Q1D take 1 [facility] n 40 mg 2-30 02-03 t} tablet by [facility] tablet 00:00: 00:00 oral route 00 :00 every day rosuvastati 2020-2021- No 1{table Q1D take 1 [facility] n 40 mg 2-30 02-03 t} tablet by [facility] tablet 00:00: 00:00 oral route 00 :00 every day rosuvastati 2020-2021- No 1{table Q1D take 1 [facility] n 40 mg 2-30 02-03 t} tablet by [facility] tablet 00:00: 00:00 oral route 00 :00 every day rosuvastati 2020-2021- No 1{table Q1D take 1 [facility] n 40 mg 2-30 02-03 t} tablet by [facility] tablet 00:00: 00:00 oral route 00 :00 every day rosuvastati 2020-2021- No 1{table Q1D take 1 [facility] n [...] ccessH 1,250 mcg 04-02 le} capsule by [facility] (50,000 00:00: 00:00 oral route unit) 00 :00 every week capsule for 12 weeks Vitamin D2 2020-03- No 1{capsu Q1W take 1 A ccessH 1,250 mcg 04-02 le} capsule by [facility] (50,000 00:00: 00:00 oral route unit) 00 :00 every week capsule for 12 weeks Vitamin D2 2020-03- No 1{capsu Q1W take 1 A ccessH 1,250 mcg 04-02 le} capsule by [facility] (50,000 00:00: 00:00 oral route unit) 00 :00 every week capsule for 12 weeks Vitamin D2 2020-03- No 1{capsu Q1W take 1 A ccessH 1,250 mcg -04-24 le} capsule by [facility] (50,000 00:00: 00:00 oral route unit) 00 :00 every week capsule for 12 weeks Vitamin D2 2020-03- No 1{capsu Q1W take 1 A ccessH 1,250 mcg 04-02 le} capsule by [facility] (50,000 00:00: 00:00 oral route unit) 00 :00 every week capsule for 12 weeks Vitamin D2 2020-03- No 1{capsu Q1W take 1 A ccessH 1,250 mcg 1-05 01-27 le} capsule by [facility] (50,000 00:00: 00:00 oral route unit) 00 :00 every week capsule for 12 weeks Vitamin D2 2020-03- No 1{capsu Q1W take 1 A ccessH 1,250 mcg 04-0227 le} capsule by [facility] (50,000 00:00: 00:00 oral route unit) 00 :00 every week capsule for 12 weeks Vitamin D2 2020-03- No 1{capsu Q1W take 1 A ccessH 1,250 mcg 04-0227 le} capsule by [facility] (50,000 00:00: 00:00 oral route unit) 00 :00 every week capsule for 12 weeks Vitamin D2 2020-03- No 1{capsu Q1W take 1 A ccessH 1,250 mcg 04-0227 le} capsule by [facility] (50,000 00:00: 00:00 oral route unit) 00 :00 every week capsule for 12 weeks Vitamin D2 2020-03- No 1{capsu Q1W take 1 A ccessH 1,250 mcg 04-0227 le} capsule by [facility] (50,000 00:00: 00:00 oral route unit) 00 :00 every week capsule for 12 weeks Vitamin D2 2020-03- No 1{capsu Q1W take 1 A ccessH 1,250 mcg 04-0227 le} capsule by [facility] (50,000 00:00: 00:00 oral route unit) 00 :00 every week capsule for 12 weeks Vitamin D2 2020-03- No 1{capsu Q1W take 1 A ccessH 1,250 mcg 04-0227 le} capsule by [facility] (50,000 00:00: 00:00 oral route unit) 00 :00 every week capsule for 12 weeks Vitamin D2 2020-03- No 1{capsu Q1W take 1 A ccess[facility] 1,250 mcg -27 le} capsule by [facility] (50,000 00:00: 00:00 oral route unit) 00 :00 every week capsule for 12 weeks Vitamin D2 2020-03- No 1{capsu Q1W take 1 A ccessH 1,250 mcg 1-04-24 le} capsule by eal th (50,000 00:00: 00:00 oral route unit) 00 :00 every week capsule for 12 weeks allopurinol 2020-03- No take 1 Dx: A ccessH 100 mg 1-05 -05 tablet (50 M10.449, ea lth tablet 00:00: 00:00 mg) by [id number] 00 :00 oral route every OTHER day allopurinol 2020-03- No take 1 Dx: A ccessH 100 mg 1-05 -05 tablet (50 M10.449, ea lth tablet 00:00: 00:00 mg) by [email or web address] 00 :00 oral route every OTHER day allopurinol 2020-03- No take 03/30 Dx: A ccessH 100 mg 1-05 -05 tablet (50 M10.449, ea lth tablet 00:00: 00:00 mg) by [email or web address] 00 :00 oral route every OTHER day allopurinol 2020-03- No take 1 Dx: A ccessH 100 mg 1-05 -05 tablet (50 M10.449, ea lth tablet 00:00: 00:00 mg) by [email or web address] 00 :00 oral route every OTHER day allopurinol 2020-03- No take 1 Dx: A ccessH 100 mg 1-05 -05 tablet (50 M10.449, ea lth tablet 00:00: 00:00 mg) by [email or web address] 00 :00 oral route every OTHER day allopurinol 2020-03- No take 1 Dx: A ccessH 100 mg 1-05 -05 tablet (50 M10.449, ea lth tablet 00:00: 00:00 mg) by [email or web address] 00 :00 oral route every OTHER day allopurinol 2020-03- No take 1 Dx: A ccessH 100 mg 1-05 01-05 [...] 1 mg tablet 1-03 tablet (1 eal 00:00: mg) by 00 [...] No take 2 Acce ssH 20 mg 03-31 02-15 tablet by [facility] tablet 00:00: 00:00 oral route 00 :00 every day x 5 days gabapentin 2020-03- No 1{table Q8H take 1 A ccessH 800 mg 1-03 02-15 t} tablet by [facility] tablet 00:00: 00:00 oral route 00 :00 3 times every day prednisone 2020-2- No take 2 Acce ssH 20 mg - 02-15 tablet by [facility] tablet 00:00: 00:00 oral route 00 :00 every day x 5 days gabapentin 2020-2021- No 1{table Q8H take 1 A ccessH 800 mg 1-03 02-15 t} tablet by [facility] tablet 00:00: 00:00 oral route 00 :00 3 times every day prednisone 2020-2021- No take 2 Acce ssH 20 mg -03 02-15 tablet by [facility] tablet 00:00: 00:00 oral route 00 :00 every day x 5 days gabapentin 2020-2021- No 1{table Q8H take 1 A ccessH 800 mg 1- 02-15 t} tablet by [facility] tablet 00:00: 00:00 oral route 00 :00 3 times every day prednisone 2020-2021- No take 2 Acce ssH 20 mg - 02-15 tablet by [facility] tablet 00:00: 00:00 oral route 00 :00 every day x 5 days gabapentin 2020-2021- No 1{table Q8H take 1 A ccessH 800 mg 1-03 02-15 t} tablet by [facility] tablet 00:00: 00:00 oral route 00 :00 3 times every day prednisone 2020-2- No take 2 Acce ssH 20 mg -03 02-15 tablet by [facility] tablet 00:00: 00:00 oral route 00 :00 every day x 5 days gabapentin 2020-2- No 1{table Q8H take 1 A ccessH 800 mg 1-03 02-15 t} tablet by [facility] tablet 00:00: [...] 00 :00 3 times every day clopidogrel 2020-2021- No take 1 Acc essH 75 mg [...] 2020-03- No take 1 Acce ssH mononitrate 03-31-05 tablet (60 e alth ER 60 mg [...] take 1 Acce ssH 5 mg tablet 1-03 12-30 tablet by ea lth 00:00: 00:00 oral [...] 1-0 No 1{table BID take 1 A ccessH rine 5 mg 9-07 t} tablet by [facility] tablet 00:00: oral route 00 2 times every day as needed for low back pain cyclobenzap 1-0 No 1{table BID take 1 A ccessH rine 5 mg 9-07 t} tablet by [facility] tablet 00:00: oral route 00 2 times every day as needed for low back pain cyclobenzap 1-0 No 1{table BID take 1 A ccessH [...] 00:00: oral route 00 every day rosuvastati 202-0 No 1{table Q1D take 1 A ccess[facility] n 40 mg 8-07 t} tablet by [facility] tablet 00:00: oral route 00 every day rosuvastati 202-0 No 1{table Q1D take 1 A ccess[facility] n 40 mg 8-07 t} tablet by [facility] tablet 00:00: oral route 00 every day rosuvastati 202-0 No 1{table Q1D take 1 A ccess[facility] n 40 mg 8-07 t} tablet by [facility] tablet 00:00: oral route 00 every day rosuvastati 202-0 No 1{table Q1D take 1 A ccess[facility] n 40 mg 8-07 t} tablet by [facility] tablet 00:00: oral route 00 every day rosuvastati 202-0 No 1{table Q1D take 1 A ccess[facility] n 40 mg 8-07 t} tablet by [facility] tablet 00:00: oral route 00 every day rosuvastati 202-0 No 1{table Q1D take 1 A ccessH [...] oral route 00 :00 every day rosuvastati 0 2020- No 1{table Q1D take 1 [facility] n 40 mg 11-02 t} tablet by [facility] tablet 00:00: 00:00 oral route 00 :00 every day rosuvastati 2020-2020- No 1{table Q1D take 1 [facility] n 40 mg 11-02 t} tablet by [facility] tablet 00:00: 00:00 oral route 00 :00 every day Vitamin D2 2020- No 1{capsu Q1W take 1 A ccessH 1,250 mcg 11-02 le} capsule by [facility] (50,000 00:00: 00:00 oral route unit) 00 :00 every week capsule for 12 weeks Vitamin D2 2020- No 1{capsu Q1W take 1 A ccessH 1,250 mcg 11-02 le} capsule by [facility] (50,000 00:00: 00:00 oral route unit) 00 :00 every week capsule for 12 weeks Vitamin D2 2020- No 1{capsu Q1W take 1 A ccessH 1,250 mcg 11-02 le} capsule by [facility] (50,000 00:00: 00:00 oral route unit) 00 :00 every week capsule for 12 weeks Vitamin D2 2020- No 1{capsu Q1W take 1 A ccess[facility] 1,250 mcg 11-02 le} capsule by [facility] (50,000 00:00: 00:00 oral route unit) 00 :00 every week capsule for 12 weeks Vitamin D2 2020- No 1{capsu Q1W take 1 A ccessH 1,250 mcg 11-02 le} capsule by [facility] (50,000 00:00: 00:00 oral route unit) 00 :00 every week capsule for 12 weeks Vitamin D2 2020- No 1{capsu Q1W take 1 A ccessH 1,250 mcg 11-02 le} capsule by [facility] (50,000 00:00: 00:00 oral route unit) 00 :00 every week capsule for 12 weeks Vitamin D2 2020- No 1{capsu Q1W take 1 A ccessH 1,250 mcg 11-02 le} capsule by [facility] (50,000 00:00: 00:00 oral route unit) 00 :00 every week capsule for 12 weeks Vitamin D2 2020- No 1{capsu Q1W take 1 A ccessH 1,250 mcg 11-02 le} capsule by [facility] (50,000 00:00: 00:00 oral route unit) 00 :00 every week capsule for 12 weeks Vitamin D2 2020- No 1{capsu Q1W take 1 A ccessH 1,250 mcg 11-02 le} capsule by [facility] (50,000 00:00: 00:00 oral route unit) 00 :00 every week capsule for 12 weeks Vitamin D2 1- No 1{capsu Q1W take 1 A ccessH 1,250 mcg 11-02 le} capsule by [facility] (50,000 00:00: 00:00 oral route unit) 00 :00 every week capsule for 12 weeks Vitamin D2 1- No 1{capsu Q1W take 1 A ccessH 1,250 mcg 11-02 le} capsule by [facility] (50,000 00:00: 00:00 oral route unit) 00 :00 every week capsule for 12 weeks Vitamin D2 2020- No 1{capsu Q1W take 1 A ccessH 1,250 mcg 11-02 le} capsule by [facility] (50,000 00:00: 00:00 oral route unit) 00 :00 every week capsule for 12 weeks Vitamin D2 1- No 1{capsu Q1W take 1 A ccessH 1,250 mcg 11-02 le} capsule by [facility] (50,000 00:00: 00:00 oral route unit) 00 :00 every week capsule for 12 weeks Vitamin D2 1- No 1{capsu Q1W take 1 A ccessH 1,250 mcg 11-02 le} capsule by [facility] (50,000 00:00: 00:00 oral route unit) 00 :00 every week capsule for 12 weeks Vitamin D2 1- No 1{capsu Q1W take 1 A ccessH 1,250 mcg 11-02 le} capsule by [facility] (50,000 00:00: 00:00 oral route unit) 00 :00 every week capsule for 12 weeks Vitamin D2 2020- No 1{capsu Q1W take 1 A ccessH 1,250 mcg 11-02 le} capsule by [facility] (50,000 00:00: 00:00 oral route unit) 00 :00 every week capsule for 12 weeks Vitamin D2 1- No 1{capsu Q1W take 1 A ccessH 1,250 mcg 11-02 le} capsule by [facility] (50,000 00:00: 00:00 oral route unit) 00 :00 every week capsule for 12 weeks Vitamin D2 1- No 1{capsu Q1W take 1 A ccessH 1,250 mcg 11-02 le} capsule by [facility] (50,000 00:00: 00:00 oral route unit) 00 :00 every week capsule for 12 weeks Vitamin D2 1- No 1{capsu Q1W take 1 A ccessH 1,250 mcg 11-02 le} capsule by [facility] (50,000 00:00: 00:00 oral route unit) 00 :00 every week capsule for 12 weeks Vitamin D2 2020- No 1{capsu Q1W take 1 A ccessH 1,250 mcg 11-02 le} capsule by [facility] (50,000 00:00: 00:00 oral route unit) 00 :00 every week capsule for 12 weeks Vitamin D2 0 2020- No 1{capsu Q1W take 1 A ccessH 1,250 mcg 11-02 le} capsule by [facility] (50,000 00:00: 00:00 oral route unit) 00 :00 every week capsule for 12 weeks Vitamin D2 2020-0 2020- No 1{capsu Q1W take 1 A ccessH 1,250 mcg 11-02 le} capsule by [facility] (50,000 00:00: 00:00 oral route unit) 00 :00 every week capsule for 12 weeks tramadol 50 No 1{table Q12H take 1 Dx: A ccessH mg tablet 8 t} tablet by [email or web address], e alth 00:00: [...] 00:00: oral route 00 every day bumetanide 2021-0 No take 1 Acces sH 1 mg tablet 8-03 tablet (1 eal th 00:00: mg) by 00 oral route 2 times per day gabapentin 2020-0 No 1{table Q8H take 1 Ac cessH [...] ccessH mg tablet 8-03 t} tablet by [email or web address], e alth 00:00: oral route M79.644, 00 every 12 M14.679, hours as E11.621, needed E11.40 tramadol 50 2020-0 No 1{table Q12H take 1 Dx: A ccessH mg tablet 8-03 t} tablet by [email or web address], e alth 00:00: oral route M79.644, 00 every 12 M14.679, hours as E11.621, needed E11.40 tramadol 50 0 No 1{table Q12H take 1 Dx: A ccessH mg tablet 8-03 t} tablet by [email or web address], e alth 00:00: oral route M79.644, 00 [...] tablet 8-03 02-15 t} tablet by [email or web address], ealt 00:00: 00:00 oral route M79.644, 00 :00 every 12 M14.679, hours as E11.621, needed E11.40 tramadol 50 2020-0 2- No 1{table Q12H take 1 Dx: [facility] mg tablet 10-29-15 t} tablet by [email or web address], ealth 00:00: 00:00 oral route M79.644, 00 :00 every 12 M14.679, hours as E11.621, needed E11.40 tramadol 50 2020-0 2021- No 1{table Q12H take 1 Dx: [facility] mg tablet 10-29-15 t} tablet by [email or web address], ealth 00:00: 00:00 [...] Q12H take 1 Dx: [facility] mg tablet 10-29-15 t} tablet by [email or web address], ealth 00:00: 00:00 oral route M79.644, 00 :00 every 12 M14.679, hours as E11.621, needed E11.40 tramadol 50 2020-2021- No 1{table Q12H take 1 Dx: [facility] mg tablet 10-29-15 t} tablet by [email or web address], ealth 00:00: 00:00 oral route M79.644, 00 :00 every 12 M14.679, hours as E11.621, needed E11.40 tramadol 50 2020-0 2021- No 1{table Q12H take 1 Dx: [facility] mg tablet -05 28-15 t} tablet by [email or web address], ealth 00:00: 00:00 [...] meals Humalog 2020- No inject [facility] KwikPen 8-03 09-14 5-10 Units [facility] (U-100) 00:00: 00:00 [...] meals Humalog 2020- No inject [facility] KwikPen -14 5-10 Units [facility] (U-100) 00:00: 00:00 by [...] Q1D take 1 A ccessH 20 mg 8-12-01 t} tablet by [facility] tablet 00:00: 00:00 oral route 00 :00 every day lisinopril 2020-0 2021- No 1{table Q1D take 1 A ccessH 20 mg 8-05 t} tablet by [facility] tablet 00:00: 00:00 [...] 1 [facility] 80 mg -06 03- tablet by [facility] tablet 00:00: 00:00 [...] :00 1 time per day atorvastati 2021-0 2020- No take 1 [facility] 80 mg 8- 08-07 tablet by [facility] tablet 00:00: 00:00 Oral route 00 :00 1 time per day atorvastati 2020-0 2020- No take 1 [facility] 80 mg 8-06 03-07 tablet by [facility] tablet 00:00: 00:00 Oral route 00 :00 1 time per day atorvastati 2020-0 2020- No take 1 [facility] n [...] route 2 times per day with food aspirin 81 Yes 81mg Take [address] [facility] 7-04 [facility] 13:[facility]: Medical [address] [place] [address] atorvastati Yes 80mg QD Take [address] [facility] (LIPITOR) 7-04 by mouth [facility] 80 MG 13:32: every Medical tablet 10 evening. [place] isosorbide Yes Chronic 60mg QD Take 60 [...] by mouth [facility] tablet 13:32: daily. [address] clopidogrel Yes 75mg QD Take [address] [facility] (PLAVIX) 75 7-04 by mouth [facility] mg tablet 13:32: daily. Medica l [address] [place] [address] bumetanide Yes 1mg Q.5D Take [address] [facility] [address] [facility] (BUMEX) 1 7-04 by mouth 2 [facility] MG tablet 13:32: (two) Medical 10 times Center daily. carvediloL Yes 25mg Q.5D Take [address] (COREG) 25 7-04 by mouth 2 Lo es MG tablet 13:32: (two) Medical 10 times Center daily. aspirin 81 2020- Yes 81mg Take [address] [facility] EC 7-04 by [facility]. [facility] tablet 13:32: [address] atorvastati Yes 80mg QD Take [address] [facility] (LIPITOR) 7-04 by mouth Luke [facility] 80 MG 13:32: every Medical tablet 10 evening. [place] isosorbide Yes Chronic 60mg QD Take 60 [...] by mouth [facility] tablet 13:32: daily. [address] clopidogrel Yes 75mg QD Take [address] [facility] (PLAVIX) 75 7-04 by mouth [facility] mg tablet 13:32: daily. Medica l [address] [place] [address] bumetanide Yes 1mg Q.5D Take 1 mg [...] by mouth. [facility] tablet 13:32: Medical 10 [place] atorvastati Yes 80mg QD Take [address] [facility] (LIPITOR) 7-04 by mouth Luke [facility] 80 MG 13:32: every Medical tablet 10 evening. [place] isosorbide Yes Chronic 60mg QD Take 60 [...] by mouth [facility] tablet 13:32: daily. [address] clopidogrel Yes 75mg QD Take [address] [facility] (PLAVIX) 75 7-04 by mouth Luke s mg tablet 13:32: daily. Medica l [address] [place] [address] bumetanide Yes 1mg Q.5D Take 1 mg [...] by mouth. [facility] tablet 13:32: Medical 10 [place] atorvastati Yes 80mg QD Take [address] [facility] (LIPITOR) 7-04 by mouth Luke [facility] 80 MG 13:32: every Medical tablet 10 evening. [place] isosorbide Yes Chronic 60mg QD Take 60 [...] by mouth [facility] tablet 13:32: daily. [address] clopidogrel Yes 75mg QD Take [address] [facility] (PLAVIX) 75 7-04 by mouth [facility] mg tablet 13:32: daily. Medica l [address] [place] [address] bumetanide Yes 1mg Q.5D Take 1 mg [...] EC 7-04 by mouth. [facility] 13:32: [address] atorvastati Yes 80mg QD Take [address] [facility] (LIPITOR) 7-04 by mouth Luke [facility] 80 MG 13:32: every Medical tablet 10 evening. [place] isosorbide Yes Chronic 60mg QD Take 60 [...] by mouth [facility] tablet 13:32: daily. [address] clopidogrel Yes 75mg QD Take [address] [facility] (PLAVIX) 75 7-04 by mouth [facility] mg tablet 13:32: daily. Medica l [address] [place] [address] bumetanide Yes 1mg Q.5D Take 1 mg [...] mg tablet 13:32: daily. Medica l 10 [place] bumetanide Yes 1mg Q.5D Take 1 mg [...] mouth Luke s tablet 13:32: daily. Medical [address] [place] [address] clopidogrel Yes 75mg QD Take [address] [facility] (PLAVIX) 75 7-04 by mouth [facility] mg tablet 13:32: daily. Medica l [address] [place] [address] bumetanide Yes 1mg Q.5D Take [address] [facility] [address] [facility] (BUMEX) 1 7-04 by mouth 2 [facility] MG tablet 13:32: (two) Medical 10 times Center daily. carvediloL Yes 25mg Q.5D Take [address] (COREG) 25 7-04 by mouth 2 Lo es MG tablet 13:32: (two) Medical 10 times Center daily. bisacodyL Yes 5mg Take [address] [facility] [...] St -clavulanat 7-04 07-11 tablet by Siddhartha mallory e 00:00: 23:59 mouth 2 Medical (AUGMENTIN) 00 :00 (two) Center 875-125 mg times per tablet daily for 7 days. doxycycline 2020- No 100mg Q.5D Take [address] [facility] (MONODOX) 7- 07-11 capsule [facility] 100 MG 00:00: 23:59 (100 mg Medical capsule 00 :00 total) by Center mouth 2 (two) times daily for 7 days. amoxicillin 0 2020- No 1{tbl} Q.5D Take [address] -clavulanat 7-04 07-11 tablet by Siddhartha mallory e 00:00: 23:59 [...] I St (MONODOX) 7-07 03- capsule [facility] 100 MG 00:00: 23:59 (100 mg Medical capsule 00 :00 total) by Center mouth 2 (two) times daily for 7 days. amoxicillin 2020- No 1{tbl} Q.5D Take [address] -clavulanat 7-07 03- tablet by Siddhartha kes e 00:00: 23:59 [...] St -clavulanat -07 03-11 tablet by Siddhartha kes e 00:00: [...] I St (MONODOX) 7- 07-04 capsule [facility] 100 MG 00:00: 00:00 (100 mg Medical capsule 00 :00 total) by Center mouth every 12 (twelve) hours for 7 days. amoxicillin 2020-0 1- No 1{tbl} Take [address] -clavulanat 7-04 07-04 tablet by Siddhartha kes e 00:00: 00:00 mouth Medical (AUGMENTIN) 00 :00 every 12 Cent er 875-125 mg (twelve) per tablet hours for 7 days. doxycycline 2020-0 2021- No 100mg Take [...] -clavulanat 7-07 03- tablet by Siddhartha kes e 00:00: 00:00 mouth Medical (AUGMENTIN) 00 :00 every 12 Cent er 875-125 mg (twelve) per tablet hours for 7 days. doxycycline 2020-2020- No 100mg Take [address] [facility] [address] [facility] (MONODOX) 7-07 03- capsule [facility] 100 MG 00:00: 00:00 [...] [facility] (MONODOX) 09-29 [facility] 100 MG 00:00: 00:00 (100 mg Medical capsule 00 :00 total) by Center mouth every 12 (twelve) hours for 7 days. amoxicillin 2020- No 1{tbl} Take [address] -clavulanat 09-29 tablet by Siddhartha kes e 00:00: 00:00 mouth Medical (AUGMENTIN) 00 :00 every 12 Cent er 875-125 mg (twelve) per tablet hours for 7 days. doxycycline 2020- No 100mg Take [address] (MONODOX) 09-29 capsule [facility] 100 MG 00:00: 00:00 (100 [...] 0 No 50U Q12H inject 50 Acces sH FlexTouch 6-22 unit by ealth U-100 00:00: subcutaneo Insulin 100 00 us route 2 unit/mL (3 times mL) every day subcutaneou s pen Levemir 0 No 50U Q12H inject 50 [facility]es [facility] FlexTouch 6-22 unit by ealth U-100 00:00: subcutaneo Insulin 100 00 us route 2 unit/mL (3 times mL) every day subcutaneou s pen Levemir 0 No 50U Q12H inject 50 Acces sH [...] 50 Acce ssH FlexTouch 09-17 unit by ealt U-100 00:00: 00:00 subcutaneo [...] 50 [facility] ss[facility] FlexTouch 09-17 unit by ealt U-100 00:00: 00:00 subcutaneo [...] meals Humalog 2020- No inject [facility] KwikPen 09-17- [...] Q1D take 1 A ccess[facility] mg tablet 09-17- t} tablet by ealt h 00:00: 00:00 [...] route 00 :00 every day Januvia 50 202- No 1{table Q1D take 1 A [facility]cess[facility] mg tablet 09-17 t} tablet by ealt h 00:00: 00:00 oral route 00 :00 every day acetaminoph 2020-2020- No 1{table Q8H take 1 Dx: [facility] [...] oral route 00 :00 every day Jandesireeia 100 2020-0 2021- No 1{table Q1D take [...] oral route 00 :00 every day Jandesireeia 100 2020-0 2020- No 1{table Q1D take 1 [facility] mg tablet 08-19 t} tablet by ealt h 00:00: 00:00 oral route 00 :00 every day Joseia 100 2020-0 2020- No 1{table Q1D take 1 [facility] mg tablet 08-19 t} tablet by ealt h 00:00: 00:00 [...] 250 2021-0 No Q1D apply by Acc ess[facility] unit/gram [...] area isosorbide 2020- No take 1 [facility] [...] take 1 [facility] n 80 mg -20 - tablet by [facility] tablet 00:00: 00:00 [...] take 1 [facility] 25 mg 5-20 08-03 tablet (25 [facility] tablet 00:00: 00:00 [...] day clopidogrel 2020- No take 1 Acc ess[facility] [...] Acc ess[facility] FlexTouch 5-20 -22 unit by [facility] U-100 00:00: 00:00 subcutaneo [...] 202- No 100U Q1D inject 100 Acc ess[facility] [...] route 00 :00 every day lisinopril 2020-0 1- No 1{table Q1D take [...] mg tablet 5-20 06-22 t} tablet by [facility] 00:00: 00:00 oral route 00 :00 every 2 days Levemir 2020-2020- No 100U Q1D inject 100 Acc ess[facility] FlexTouch 5-20 06-22 unit by ealt U-100 00:00: 00:00 subcutaneo Insulin 100 00 :00 us route unit/mL (3 every day mL) subcutaneou s pen metolazone 2020- No 1{table Q2D take 1 A ccessH 5 mg tablet 5-20 06-22 t} tablet by [facility] 00:00: 00:00 oral route 00 :00 every 2 days lisinopril 2020-2020- No 1{table Q1D take 1 A ccessH 20 mg 5-20 06-22 t} tablet by lt tablet 00:00: 00:00 oral route 00 :00 every day Levemir 2020-0 2020- No 100U Q1D inject 100 Acc ess[facility] FlexTouch 5-20 06-22 unit by ealt U-100 00:00: 00:00 subcutaneo Insulin 100 00 :00 us route unit/mL (3 every day mL) subcutaneou s pen metolazone 2020-2020- No 1{table Q2D take 1 A ccessH 5 mg tablet 5-20 06-22 t} tablet by [facility] 00:00: 00:00 oral route 00 :00 [...] mg tablet 5-20 06-22 t} tablet by [facility] 00:00: 00:00 oral route 00 :00 [...] :00 every day Levemir 2020-0 1- No inject 50 [facility] FlexTouch 5-20 [...] take 1 [facility] 5 mg tablet 4- 05-20 tablet (5 ea lth 00:00: 00:00 mg) by 00 :00 oral route once daily isosorbide 2020- No take 1 [facility] mononitrate 4- [...] morning Humalog 2020-2020- No inject [facility] KwikPen 07-04-20 5-10 Units [...] Acce ssH FlexTouch 4-08 05-20 Units by [facility] U-100 00:00: 00:00 Subcutaneo Insulin 100 00 :00 us route 2 unit/mL (3 times per mL) day in the [facility] morning s pen and evening metolazone 2020- No 1{table Q2D take 1 A ccessH 2.5 mg 4-08 05-20 t} tablet by [facility] tablet 00:00: 00:00 oral route 00 :00 [...] to cleansed affected area Santyl 250 2020-0 2021- No Q1D apply by Ac cessH unit/gram [...] to cleansed affected area Santyl 250 2020-0 2021- No Q1D apply by Ac cessH unit/gram 1-29 05-20 topical [facility] topical 00:00: 00:00 route ointment 00 :00 every day to cleansed affected area Santyl 250 2020-0 2021- No Q1D apply by Ac cessH unit/gram [...] to cleansed affected area Santyl 250 2020-0 2021- No Q1D apply by Ac cessH unit/gram [...] 00:00 mouth Medical tablet 05 :00 daily. [place] amLODIPine 2020- No 5mg QD Take [address] [facility] (NORVASC) 04-06 by [facility] 10 MG 08:46: 00:00 daily. Medical tablet 05 :00 [place] lisinopriL 2020- No 40mg Q.5D Take 40 [...] 00:00 mouth Medical tablet 05 :00 daily. [place] amLODIPine 2020- No 5mg QD Take [address] (NORVASC) 04-06 by mouth [facility] 10 MG 08:46: 00:00 daily. Medical tablet 05 :00 [place] lisinopriL 2020- No 40mg Q.5D Take 40 [...] 00:00 mouth Medical tablet 05 :00 daily. [place] amLODIPine 2020- No 5mg QD Take [address] (NORVASC) 04-06 by mouth [facility] 10 MG 08:46: 00:00 daily. Medical tablet 05 :00 [place] lisinopriL 2020- No 40mg Q.5D Take [address] [facility] (PRINIVIL,Z 04-06 by mouth 2 L ukes ESTRIL) 40 08:46: 00:00 (two) Medic al MG tablet 05 :00 times Center daily. insulin 2020- No 50U Q.5D Inject [address] [facility] detemir 04-06- Units [facility] (LEVEMIR) 08:46: 00:00 subcutaneo M edical 100 unit/mL 05 :00 usly 2 Center injection (two) times daily . metOLazone 2020-2020- No 2.5mg QD Take 2.[address] (ZAROXOLYN) 04-06-09 mg by [facility] 2.5 MG 08:46: 00:00 mouth Medical tablet 05 :00 daily. [place] amLODIPine 2020- No 5mg QD Take [address] (NORVASC) 04-06 by mouth [facility] 10 MG 08:46: 00:00 daily. Medical tablet 05 :00 [place] lisinopriL 2020- No 40mg Q.5D Take 40 [...] 00:00 mouth Medical tablet 05 :00 daily. [place] amLODIPine 2020- No 5mg QD Take [address] (NORVASC) 04-06 by mouth [facility] 10 MG 08:46: 00:00 daily. Medical tablet 05 :00 [place] lisinopriL 2020- No 40mg Q.5D Take 40 [...] 00:00 mouth Medical tablet 05 :00 daily. [place] amLODIPine 2020- No 5mg QD Take 5 [...] (NORVASC) 5 04-06 tablet (5 Lo es MG tablet 00:00: [...] [facility] (RENVELA[facility] -09 tablet [facility] 800 mg 00:00: (800 mg [...] 1{tbl} Take [address] -acetaminop 1-09 07-04 tablet by Siddhartha robertson (NORCO 00:00: 00:00 [...] Amount: 200 mg clindamycin 2019-03 No 300mg Q.[id number] Take [address] [facility] (CLEOCIN) 05-21 [id number] capsule [facility] 300 MG 00:00: 23:59 3D (300 mg Medical capsule 00 :00 total) by Center mouth 3 (three) times daily for 7 days. clindamycin 2019-03- No 300mg Q.[id number] Take [address] [facility] (CLEOCIN) 203-27 [id number] capsule [facility] 300 MG 00:00: 23:59 3D (300 mg Medical capsule 00 :00 total) by Center mouth 3 (three) times daily for 7 days. clindamycin 2019-03- No 300mg Q.[id number] Take [address] [facility] (CLEOCIN) 05-21- [id number] capsule [facility] 300 MG 00:00: 23:59 3D (300 mg Medical capsule 00 :00 total) by Center mouth 3 (three) times daily for 7 days. clindamycin 2019-03- No 300mg Q.[id number] Take [address] [facility] (CLEOCIN) 05-21 [id number] capsule [facility] 300 MG 00:00: 23:59 3D (300 mg Medical capsule 00 :00 total) by Center mouth 3 (three) times daily for 7 days. clindamycin 2019-03- No 300mg Q.[id number] Take [address] [facility] (CLEOCIN) 05-21 [id number] capsule [facility] 300 MG 00:00: 23:59 3D (300 mg Medical capsule 00 :00 total) by Center mouth 3 (three) times daily for 7 days. clindamycin 2019-03- No 300mg Q.[id number] Take [address] [facility] (CLEOCIN) 05-21 [id number] capsule [facility] 300 MG 00:00: 23:59 3D (300 mg Medical capsule 00 :00 total) by Center mouth 3 (three) times daily for 7 days. clindamycin 2019-03- No 300mg Q.[id number] Take [address] [facility] (CLEOCIN) 05-21- [id number] capsule [facility] 300 MG 00:00: 23:59 3D (300 mg Medical capsule 00 :00 total) by Center mouth 3 (three) times daily for 7 days. gabapentin 2019-03 Yes Take by [facility] (NEURONTIN) 2 mouth. [facility] 800 MG 00:00: Medical tablet 00 Center lisinopriL 2019-03 Yes take 1 [facility] (PRINIVIL,Z 2-09 tablet (40 Siddhartha kes ESTRIL) 40 00:00: mg) by Medic al MG tablet 00 oral route Cent er once daily gabapentin 2019-03 Yes Take by [facility] (NEURONTIN) 2-09 mouth. [facility] 800 MG 00:00: Medical tablet 00 [place] lisinopriL 2019-03 Yes take 1 [facility] (PRINIVIL,Z 2-09 tablet (40 Siddhartha kes ESTRIL) 40 00:00: mg) by Medic al MG tablet 00 oral route Cent er once daily gabapentin 2019-03 Yes Take by [facility] (NEURONTIN) 2-09 mouth. [facility] 800 MG 00:00: Medical tablet 00 Center lisinopriL 2019-03 Yes take 1 [facility] (PRINIVIL,Z 2-09 tablet (40 Siddhartha kes ESTRIL) 40 00:00: mg) by Medic al MG tablet 00 oral route Cent er once daily gabapentin 2019-03 Yes Take by [facility] (NEURONTIN) 2-09 mouth. [facility] 800 MG 00:00: Medical tablet [place] lisinopriL 2019-03 Yes take 1 [facility] (PRINIVIL,Z 2-09 tablet (40 Siddhartha kes ESTRIL) 40 00:00: mg) by Medic al MG tablet 00 oral route Cent er once daily gabapentin 2019-03 Yes Take by [facility] (NEURONTIN) 2-09 mouth. [facility] 800 MG 00:00: Medical tablet 00 Center lisinopriL 2019-03 Yes take 1 [facility] (PRINIVIL,Z 2-09 tablet (40 Siddhartha kes ESTRIL) 40 00:00: mg) by Medic al MG tablet 00 oral route Cent er once daily gabapentin 2019-03 Yes Take by [facility] (NEURONTIN) 2-09 mouth. [facility] 800 MG 00:00: Medical tablet 00 Center lisinopriL 2019-03 Yes take 1 [facility] (PRINIVIL,Z 2-09 tablet (40 Siddhartha kes ESTRIL) 40 00:00: mg) by Medic al MG tablet 00 oral route Cent er once daily gabapentin 2019-03 Yes Take by [facility] (NEURONTIN) 2-09 mouth. [facility] 800 MG 00:00: Medical tablet 00 [place] lisinopriL 2019-03 Yes take 1 [facility] [...] day Humalog 2019-03 No inject kit=boxes Ac cessH KwikPen 05-07 [...] take 1 [facility]ce [facility] 5 mg tablet 2-09 04-08 tablet (5 ea lth 00:00: 00:00 mg) [...] 00 :00 3 times every day Humalog 2020-1 2021- No inject kit=boxes Ac cess[facility] KwikPen 05-07 [...] day Humalog 2019-03 No inject kit=boxes Ac cess[facility] KwikPen 05-07 [...] day amlodipine 2019-03 No take 1 [facility] [...] for 3 ealt h U-100 00:00: [facility] :00 us [facility] [...] day Humalog 2019-03 No inject kit=boxes Ac cess[facility] KwikPen 05-07 [...] 00 :00 oral route once daily sulfamethox 2020-0 2020- No 160mg{t Q.5D Take [address] [facility] azole-trime 12-01 rimetho tablet [facility] 00:00: 23:59 prim} (160 mg of Me dical (BACTRIM 00 :00 trimethopr Cente r DS) 800-160 im total) mg per by mouth 2 tablet (two) times daily for 10 days smx-tmp DS (BACTRIM) 800-160 mg tabs (1tab q12 D10). sulfamethox 2020-0 2020- No 160mg{t Q.5D Take [address] [facility] azole-trime 12-01 rimetho tablet [facility] 00:00: 23:59 prim} (160 mg of Me dical (BACTRIM 00 :00 trimethopr Cente r DS) 800-160 im total) mg per by mouth 2 tablet (two) times daily for 10 days smx-tmp DS (BACTRIM) 800-160 mg tabs (1tab q12 D10). sulfamethox 2019-0 2020- No 160mg{t Q.5D Take [address] [facility] azole-trime 12-01 rimetho tablet [facility] 00:00: 23:59 prim} (160 mg of Me dical (BACTRIM 00 :00 trimethopr Cente r DS) 800-160 im total) mg per by mouth 2 tablet (two) times daily for 10 days smx-tmp DS (BACTRIM) 800-160 mg tabs (1tab q12 D10). sulfamethox 2020-0 2020- No 160mg{t Q.5D Take [address] [facility] azole-trime 12-0115 rimetho tablet [facility] 00:00: 23:59 prim} (160 mg of Me dical (BACTRIM 00 :00 trimethopr Cente r DS) 800-160 im total) mg per by mouth 2 tablet (two) times daily for 10 days smx-tmp DS (BACTRIM) 800-160 mg tabs (1tab q12 D10). sulfamethox 2020-0 2020- No 160mg{t Q.5D Take [address] [facility] azole-trime 9-12-11 rimetho tablet Siddhartha kes thoprim 00:00: 23:59 [...] Max Daily Amount: 4 tablets HYDROcodone 2019-0 2019- No 1{tbl} Take [address] -acetaminop -08 04-12 tablet by Siddhartha robertson (NORCO 00:00: 23:59 mouth Medic al 5-325) 00 :00 every 6 Center 5-325 mg (six) per tablet hours as needed for Pain for up to 7 days. Max Daily Amount: 4 tablets HYDROcodone 2019-0 2020- No 1{tbl} Take [address] -acetaminop 9-05 09-12 tablet by Siddhartha robertson (NORCO 00:00: 23:59 mouth Medic al 5-325) 00 :00 every 6 Center 5-325 mg (six) per tablet hours as needed for Pain for up to 7 days. Max Daily Amount: 4 tablets HYDROcodone 2020-0 2020- No 1{tbl} Take [address] -acetaminop 9-08 04-12 tablet by Siddhartha robertson (NORCO 00:00: [...] :00 oral route once daily gabapentin 2019- 1{table Q8H take 1 A ccessH 800 mg 11-08 t} tablet by [facility]alth tablet 00:00: 00:00 oral route 00 :00 3 times every day Humalog 2020-0 2020- No inject [facility] KwikPen 11-08 5-10 Units [...] three times a day before meals isosorbide 2019-2019- No take 1 [facility] mononitrate 11-08 [...] subcutaneou morning s pen and evening lisinopril 2019-2019- No take 1 [facility] 40 mg [...] subcutaneou morning s pen and evening lisinopril 2020- No take 1 [facility] 40 mg 11-08 tablet (40 [facility] tablet 00:00: 00:00 mg) by 00 :00 oral route once daily metolazone 2019- 2020- No take 1 [facility] 5 [...] ccessH 800 mg 11-08 [facility] 00:00 oral route 00 [...] morning s pen and evening Levemir 2019- inject 50 [facility] FlexTouch 07-03 Units by ealth U-100 00:00: 00:00 Subcutaneo Insulin 100 00 :00 us route 2 unit/mL (3 times per mL) day in the subcutaneou morning s pen and evening Humalog inject [facility] KwikPen 07-02 5-10 Units [...] three times a day before meals Humalog 2019-2019- No inject [facility] KwikPen 07-02- 5-10 Units ealth (U-100) 00:00: 00:00 by [...] once daily Humalog 2019- inject [facility] KwikPen 07-02 5-10 Units ealth [...] route 2 times per day bumetanide 2019- 2020- No take 1 [facility] 1 mg tablet 07-02- tablet (1 ea lth 00:00: 00:00 mg) by 00 :00 oral route 2 times per day Levemir 2019-2019- No inject 34 [facility] FlexTouch 4- 04-07 Units by ealth U-100 00:00: 00:00 Subcutaneo Insulin 100 00 :00 us route 2 unit/mL (3 times per mL) day in the subcutaneou morning s pen and evening Levemir 2019- 2020- No inject 34 [facility] FlexTouch 4- 04-07 Units by ealth U-100 00:00: 00:00 Subcutaneo Insulin 100 00 :00 us route 2 unit/mL (3 times per mL) day in the subcutaneou morning s pen and evening Levemir 2019- 2020- No inject 34 [facility] FlexTouch 4- 04-07 Units by ealth U-100 00:00: 00:00 [...] 2020- No inject 34 [facility] FlexTouch 4- 04-07 Units by [facility]alth U-100 00:00: 00:00 [...] 2019-0 2020- No take 1 d/c lasix [facility] 1 mg tablet 05-09- tablet (1 ea lth 00:00: 00:00 mg) by 00 :00 oral route 2 times per day bumetanide 2019-0 2020- No take 1 d/c lasix [facility] 1 mg tablet 05-09- tablet (1 ea lth 00:00: 00:00 mg) by 00 :00 oral route 2 times per day bumetanide 2019-0 2020- No take 1 d/c lasix [facility] 1 mg tablet 05-09- tablet (1 ea lth 00:00: 00:00 mg) by 00 :00 oral route 2 times per day bumetanide 2019-0 2020- No take 1 d/c lasix [facility] 1 mg tablet 05-09- tablet (1 ea lth 00:00: 00:00 mg) by 00 :00 oral route 2 times per day bumetanide 2020-0 2020- No take 1 d/c lasix [facility] 1 [...] 1 d/c lasix [facility] 1 mg tablet 05-09-06 tablet (1 ea lth 00:00: 00:00 mg) [...] 2019- No inject 34 Acce ss[facility] FlexTouch 04-04-06 Units by ealt U-100 00:00: 00:00 Subcutaneo Insulin 100 00 :00 us route 2 unit/mL (3 times per mL) day in the subcutaneou morning s pen and evening Humalog 2019- No inject [facility] KwikPen 04-04-06 5-10 Units ealt (U-100) 00:00: 00:00 by Insulin 100 00 [...] 2019- take 1 Acc ess[facility] 75 mg 04-04 [...] 2019- take 1 Acc ess[facility] 75 mg 04-04 [...] subcutaneou morning s pen and evening metolazone take 1 [facility] 5 mg [...] 00 :00 oral route once daily carvedilol 2019-2019- No take 1 [facility] 25 mg 04-04 tablet (25 [facility] tablet 00:00: 00:00 mg) by 00 :00 oral route 2 times per day with food atorvastati 2019-2019- No take 1 Acc ess[facility] [...] three times a day before meals amlodipine 2019-2019- No take 1 [facility] 5 [...] hr morning clopidogrel No take 1 Acc ess[facility] 75 [...] food clopidogrel 2019-2019- No take 1 Acc [facility] 75 mg 04-04- tablet (75 [facility] tablet 00:00: 00:00 mg) [...] lisinopril 2020-0 2020- No take 1 [facility] 40 mg 04-04- tablet (40 [facility] tablet 00:00: 00:00 mg) [...] Q12H take 1 A ccessH 40 mg -07 02-11 t} tablet by [facility] tablet 00:00: 00:00 [...] Q12H take 1 A ccess[facility] 40 mg 1-07 02-11 t} tablet by [facility] tablet 00:00: 00:00 [...] ipratropium 2019-0 2019- No inhale 3 A ccess[facility] -albuterol [...] 2020- No inhale 3 A ccess[facility] -albuterol 104-04 milliliter ea lth 0.5 mg-3 00:00: 00:00 [...] before bedtime for restless legs amlodipine 2019- take 1 [facility] 5 [...] 0.5 2019-0 2020- No take 2 [facility] mg tablet [...] ess[facility] n 80 mg 07-26 [facility]: 00:00 Oral route 00 [...] Acce ssH mg tablet 07-26 tablets by [facility] 00:00: 00:00 Oral route 00 :00 1 time per day 1-3 hours before bedtime for restless legs Requip 0.5 take 2 [facility] mg tablet 07-26 tablets by [facility] 00:00: 00:00 Oral route 00 :00 1 time per day 1-3 hours before bedtime for restless legs ipratropium No inhale 3 A ccess[facility] -albuterol [...] 00 :00 oral route once daily carvedilol 2019-0 2020- No take 1 [facility] 25 [...] the subcutane morning s pen and evening isosorbide 2019- [...] 00 :00 oral route once daily Humalog 2019-0 2020- No inject [facility] KwikPen [...] :00 oral route once daily Requip 0.5 take 2 [facility] mg [...] once daily carvedilol No take 1 [facility] 25 mg 07-26 tablet (25 [facility] tablet 00:00: 00:00 mg) by 00 :00 oral route 2 times per day with food ProAir HFA 2019- No inhale 2 Ac cessH 90 07-26 puffs (180 ealth mcg/actuati 00:00: 00:00 mcg) by on aerosol 00 :00 inhalation inhaler route every 4 hours as needed metolazone 2019- No take 1 [facility] 5 mg tablet 07-26 tablet (5 ea lth 00:00: 00:00 mg) by 00 :00 oral route once daily ipratropium 2019- No inhale 3 A ccessH [...] take 1 Acc ess[facility] n 80 mg 4-30 01-07 tablet by [facility] tablet 00:00: 00:00 Oral [...] 2019- No inhale 3 A ccessH -albuterol 4-30 01- milliliter ea lth 0.5 mg-3 00:00: 00:00 s by mg(2.5 mg 00 :00 nebulizati base)/3 mL on route 4 nebulizatio times per n soln day and as needed, up to 6 doses per day Requip 0.5 2019-0 2019- No take 2 [facility] mg [...] Administered Flu 00:00:00 vaccine without any complications. [facility] 03/06/2020 ; Source: New Immunization [...] Administered Flu 00:00:00 vaccine without any complications. [facility] 03/06/2020 ; Source: New Immunization Record Flu (split) (3 Completed Note: [facility] th yrs or older) 9 Administered Flu 00:00:00 vaccine without any complications. [facility] 03/06/2020 ; Source: New Immunization Record Flu (split) (3 Completed Note: [facility] th yrs or older) 9 Administered Flu 00:00:00 vaccine without any complications. [facility] 03/06/2020 ; Source: New Immunization Record Flu (split) (3 Completed Note: [facility] th yrs or older) 9 Administered Flu 00:00:00 vaccine without any complications. [facility] 03/06/2020 ; Source: New Immunization Record Flu (split) (3 Completed Note: [facility] th yrs or older) 9 Administered Flu 00:00:00 vaccine without any complications. [facility] 03/06/2020 ; Source: New Immunization Record Flu (split) (3 Completed Note: [facility] th yrs or older) 9 Administered Flu 00:00:00 vaccine without any complications. [facility] 03/06/2020 ; Source: New Immunization Record Flu (split) (3 Completed Note: [facility] th yrs or older) 9 Administered Flu 00:00:00 vaccine without any complications. [facility] 03/06/2020 ; Source: New Immunization Record Flu (split) (3 Completed Note: [facility] th yrs or older) 9 Administered Flu 00:00:00 vaccine without any complications. [facility] 03/06/2020 ; Source: New Immunization [...] Administered Flu 00:00:00 vaccine without any complications. [facility] 03/06/2020 ; Source: New Immunization Record Flu (split) (3 Completed Note: [facility] th yrs or older) 9 Administered Flu 00:00:00 vaccine without any complications. [facility] 03/06/2020 ; Source: New Immunization Record Flu (split) (3 Completed Note: [facility] th yrs or older) 9 Administered Flu 00:00:00 vaccine without any complications. [facility] 03/06/2020 ; Source: New Immunization Record Flu (split) (3 Completed Note: [facility] th yrs or older) 9 Administered Flu 00:00:00 vaccine without any complications. [facility] 03/06/2020 ; Source: New Immunization Record Flu (split) (3 Completed Note: [facility] th yrs or older) 9 Administered Flu 00:00:00 vaccine without any complications. [facility] 03/06/2020 ; Source: New Immunization Record Flu (split) (3 Completed Note: [facility] th yrs or older) 9 Administered Flu 00:00:00 vaccine without any complications. [facility] 03/06/2020 ; Source: New Immunization Record Flu (split) (3 Completed Note: [facility] th yrs or older) 9 Administered Flu 00:00:00 vaccine without any complications. [facility] 03/06/2020 ; Source: New Immunization Record Flu (split) (3 Completed Note: [facility] th yrs or older) 9 Administered Flu 00:00:00 vaccine without any complications. [facility] 03/06/2020 ; Source: New Immunization Record Flu (split) (3 Completed Note: [facility] th yrs or older) 9 Administered Flu 00:00:00 vaccine without any complications. [facility] 03/06/2020 ; Source: New Immunization Record Flu (split) (3 Completed Note: [facility] th yrs or older) 9 Administered Flu 00:00:00 vaccine without any complications. [facility] 03/06/2020 ; Source: New Immunization Record Flu (split) (3 Completed Note: [facility] th yrs or older) 9 Administered Flu 00:00:00 vaccine without any complications. [facility] 03/06/2020 ; Source: New Immunization Record Flu (split) (3 Completed Note: [facility] th yrs or older) 9 Administered Flu 00:00:00 vaccine without any complications. [facility] 03/06/2020 ; Source: New Immunization Record Flu (split) (3 Completed Note: [facility] th yrs or older) 9 Administered Flu 00:00:00 vaccine without any complications. [facility] 03/06/2020 ; Source: New Immunization Record Flu (split) (3 Completed Note: [facility] th yrs or older) 9 Administered Flu 00:00:00 vaccine without any complications. [facility] 03/06/2020 ; Source: New Immunization Record Flu (split) (3 Completed Note: [facility] th yrs or older) 9 Administered Flu 00:00:00 vaccine without any complications. [facility] 03/06/2020 ; Source: New Immunization [...] 2020-09-29 76 /min [facility] 08:55:00 [facility] Respiratory rate 2020-09-29 18 /min [facility] 08:[facility]:00 [facility] Oxygen saturation in 2020-09-29 97 /min [facility] Arterial blood by 08:55:00 Medical nter Pulse oximetry Systolic blood 2020-09-29 134 mm[Hg] [facility] pressure 04:00:00 [facility] Center Diastolic blood 2020-09-29 76 mm[Hg] [facility] pressure 04:00:00 [facility] Body temperature 2020-09-[address] [facility] 04:00:00 [facility] Body weight 2020-09-[address] [facility] 13:36:00 [facility] BMI 2020-09-23 39.75 kg/m2 [facility] 13:36:00 [facility] Body height 2020-09-[address] [facility] 14:00:00 [facility] Body height 2020-09-17 172.72 cm [...] 15:36:00 Body mass index 2015-05-03 37.20 kg/m2 [facility] 15:36:00 Procedures Procedure Date / Time Performing Clinician Source Performed COORD/COLLAB CONTACT 2021-08-05 00:00:00 [facility] PHONE CALL TO 2021-08-05 00:00[facility] 2021-05-20 00:00[facility] CALL TO 2021-05-20 00:00:00 [facility] SHORT TERM- SCREENED, 2021-05-20 00:00:00 [facility] REFUSED PHONE CALL TO 2021-05-16 00:00:00 [facility] SHORT TERM - SCREENED - 2021-05-15 [facility]00[facility] 2021-05-15 00:00:00 [facility] SHORT TERM - SCREENED - 2021-05-14 00:00:00 [facility]ALIF[facility] SHORT TERM - COOR/HUGO 2021-05-14 00:00:00 Primo Aldridge SHORT TERM PATIENT AT ER 2021-05-14 00:00:00 [facility] SINCE LAST VISIT GLUCOSE BLOOD TEST 2021-05-13 [facility]:00[facility] 2021-05-13 00:00:00 Acce [facility] EST OFFICE/OUTPATIENT VISIT 2021-01-29 00:00:00 Acce [facility] EST COMPREHEN METABOLIC 2021-01-29 00:00:00 [facility] PANEL URINALYSIS AUTO W/SCOPE 2021-01-29 00:00:00 [facility] UR ALBUMIN QUANTITATIVE 2021-01-29 00:00:00 [facility] GLYCOSYLATED HEMOGLOBIN 2021-01-29 00:00:00 [facility] TEST VITAMIN D 25 HYDROXY 2021-01-29 00:00:00 [facility] ASSAY OF NATRIURETIC 2021-01-29 00:00:00 [facility] ealth PEPTIDE ASSAY OF BLOOD/URIC ACID 2021-01-29 00:00:00 Acc [facility] ASSAY OF PHOSPHORUS 2021-01-29 00:00:00 [facility] RBC SED RATE AUTOMATED 2021-01-29 00:00:00 [facility] ASSAY OF MAGNESIUM 2021-01-29 00:00:00 [facility] C-REACTIVE PROTEIN 2021-01-29 00:00:00 [facility] GLUCOSE BLOOD TEST 2020-12-03 00:00:00 [facility] OFFICE/OUTPATIENT VISIT 2020-12-03 00:00:00 [facility] EST Insulin injection 2020-12-03 00:00:00 [facility] THER/PROPH/DIAG INJ 2020-12-03 00:00:00 [facility] SC/IM COMPREHEN METABOLIC 2020-12-03 00:00:00 [facility] PANEL ASSAY OF NATRIURETIC 2020-12-03 00:00:00 [facility] ealth PEPTIDE ASSAY OF PHOSPHORUS 2020-12-03 00:00:00 [facility] GLUCOSE BLOOD TEST 2020-10-29 00:00:00 [facility] OFFICE/OUTPATIENT VISIT 2020-10-29 00:00:00 Acce [facility] EST COMPLETE CBC W/AUTO DIFF 2020-10-29 00:00:00 Acc [facility] WBC COMPREHEN METABOLIC 2020-10-29 00:00:00 [facility] PANEL URINALYSIS AUTO W/SCOPE 2020-10-29 00:00:00 [facility] LIPID PANEL 2020-10-29 00:00:00 [facility] GLYCOSYLATED HEMOGLOBIN 2020-10-29 00:00:00 [facility] TEST VITAMIN D 25 HYDROXY 2020-10-29 00:00:00 [facility] ASSAY OF NATRIURETIC 2020-10-29 00:00:00 [facility] PEPTIDE ASSAY OF MAGNESIUM 2020-10-29 00:00:00 [facility] ASSAY OF PARATHORMONE 2020-10-29 00:00:00 [facility] HAND, MINIMUM THREE 2020-10-29 00:00:00 [facility] VIEWS, RADIOLOGIC EXAM CBC W/PLT COUNT & AUTO 2020-09-29 04:29:00 [facility] 2020-09-29 04:29:00 [facility] (7) [place] MAGNESIUM 2020-09-29 04:29:00 [facility] CBC W/PLT COUNT & AUTO 2020-09-29 04:29:00 [facility] POCT-GLUCOSE METER 2020-09-28 17:27:00 Parish [facility] POCT-GLUCOSE METER 2020-09-28 12:49:00 [facility]SE [facility] 2020-09-28 05:58:00 [facility] W/PLT COUNT & AUTO 2020-09-28 04:49:00 [facility] BASIC METABOLIC PANEL 2020-09-28 04:49:00 [facility] (7) [place] MAGNESIUM 2020-09-28 04:49:00 [facility] CBC W/PLT COUNT & AUTO 2020-09-28 04:49:00 [facility] POCT-GLUCOSE METER 2020-09-27 20:57:00 Janeteh, [facility] POCT-GLUCOSE METER 2020-09-27 19:07:00 [facility] POCT-GLUCOSE METER 2020-09-27 12:26:00 Janeteh, [facility] POCT-GLUCOSE METER 2020-09-27 06:36:00 Parish [facility] CBC W/PLT COUNT & AUTO 2020-09-27 03:45:00 Hensley [facility] BASIC METABOLIC PANEL 2020-09-27 03:45:00 [facility] (7) Center MAGNESIUM 2020-09-27 03:45:00 [facility] CBC W/PLT COUNT & AUTO 2020-09-27 03:45:00 [facility] POCT-GLUCOSE METER 2020-09-26 23:12:00 Parish [facility] POCT-GLUCOSE METER 2020-09-26 18:20:00 Parish [facility] POCT-GLUCOSE METER 2020-09-26 13:31:00 Parish [facility] XR FOOT 3 VIEWS LEFT 2020-09-26 08:38:00 Patrick [facility] POCT-GLUCOSE METER 2020-09-26 08:34:00 Parish [facility] ANAEROBIC CULTURE 2020-09-26 08:07:57 [facility] 2020-09-26 08:07:57 [facility] CULTURE + GRAM STAIN [facility] ANAEROBIC CULTURE 2020-09-26 08:02:39 [facility] SURGICALLY OBTAINED 2020-09-26 08:02:39 [facility] CULTURE + GRAM STAIN [facility] TISSUE EXAM 2020-09-26 07:56:00 Patrick [facility] AMPUTATION,TOE 2020-09-26 07:12:00 Patrick [facility] CBC W/PLT COUNT & AUTO 2020-09-26 04:37:00 [facility] BASIC METABOLIC PANEL 2020-09-26 04:37:00 [facility] MAGNESIUM 2020-09-26 04:37:00 Levon [facility] B-TYPE NATRIURETIC 2020-09-26 04:37:00 Parish [facility] (BNP) [facility] CBC W/PLT COUNT & AUTO 2020-09-26 04:37:00 Levon [facility] POCT-GLUCOSE METER 2020-09-25 21:10:00 Parish [facility] POCT-GLUCOSE METER 2020-09-25 16:15:00 Janeteh [facility] POCT-GLUCOSE METER 2020-09-25 11:21:00 Parish [facility] POCT-GLUCOSE METER 2020-09-25 06:02:00 Levon [facility] CBC W/PLT COUNT & AUTO 2020-09-25 04:44:00 Levon [facility] BASIC METABOLIC PANEL 2020-09-25 04:44:00 [facility] (7) [place] MAGNESIUM 2020-09-25 04:44:00 Levon [facility] CBC W/PLT COUNT & AUTO 2020-09-25 04:44:00 [facility] POCT-GLUCOSE METER 2020-09-24 20:36:00 Levon [facility] POCT-GLUCOSE METER 2020-09-24 17:37:00 Levon [facility] HC ARTERIAL DOPPLER LEGS 2020-09-24 13:22:00 Laura Nguyen [facility] POCT-GLUCOSE METER 2020-09-24 06:34:00 Levon [facility] CBC W/PLT COUNT & AUTO 2020-09-24 05:11:00 [facility] BASIC METABOLIC PANEL 2020-09-24 05:11:00 Levon [facility] (7) Center MAGNESIUM 2020-09-24 05:11:00 Levon [facility] PTH, INTACT 2020-09-24 05:11:00 [facility] VITAMIN D, 25-HYDROXY 2020-09-24 05:11:[address] [facility] CBC W/PLT COUNT & AUTO 2020-09-24 05:11:00 Levon [facility] Center IRON, TIBC, % SAT. 2020-09-24 05:10:00 Nneka, [facility] (WITHOUT FERRITIN) [facility] FERRITIN 2020-09-24 05:10:00 [facility] POCT-GLUCOSE METER 2020-09-23 21:25:00 Levon [facility] US RENAL COMPLETE 2020-09-23 20:30:00 Nneka, [facility] URINALYSIS W/ REFLEX 2020-09-23 16:58:00 Nneka, [facility] URINE CULTURE [facility] SODIUM, RANDOM URINE 2020-09-23 16:58:00 Nneka, [facility] CHLORIDE, RANDOM URINE 2020-09-23 16:58:00 Nneka, [facility] Vikash I [facility] POTASSIUM, RANDOM URINE 2020-09-23 16:58:00 Nneka, [facility] Vikash C [facility] UREA NITROGEN, RANDOM 2020-09-23 16:58:00 Nneka, [facility] URINE [facility] CREATININE, RANDOM URINE 2020-09-23 16:58:00 Nneka, [facility] PROTEIN, RANDOM URINE 2020-09-23 16:58:00 Nneka, [facility] POCT-GLUCOSE METER 2020-09-23 16:20:00 Levon [facility] POCT-GLUCOSE METER 2020-09-23 11:40:00 Hensley [facility] 2D ECHO W/ DOPPLER 2020-09-23 08:00:54 [facility] (CW/PW/COLOR) Center POCT-GLUCOSE METER 2020-09-23 07:58:00 [facility] XR FOOT 3 VIEWS LEFT 2020-09-23 07:33:00 Laura Nguyen [facility] CBC W/PLT COUNT & AUTO 2020-09-23 04:51:00 [facility] BASIC METABOLIC PANEL 2020-09-23 04:51:00 [facility] (7) Center MAGNESIUM 2020-09-23 04:51:00 Levon [facility] PHOSPHORUS 2020-09-23 04:51:00 [facility] CBC W/PLT COUNT & AUTO 2020-09-23 04:51:00 Levon [facility] POCT-GLUCOSE METER 2020-09-22 20:46:00 [facility] POCT-GLUCOSE METER 2020-09-22 17:01:00 [facility] SARS-COV2/RT-PCR [facility] 2020-09-22 10:50:00 [facility] REF LABS) Center B-TYPE NATRIURETIC 2020-09-22 06:54:00 [facility] FACTOR (BNP) Kathleen [place] BASIC METABOLIC PANEL 2020-09-22 06:54:00 [place] [facility] (7) [facility] CBC W/PLT COUNT & AUTO 2020-09-22 06:54:00 [place] [facility] DIFFERENTIAL [facility] PT/APTT 2020-09-22 06:54:00 [place] [facility] TROPONIN I 2020-09-22 06:54:00 [place] [facility] CBC W/PLT COUNT & AUTO 2020-09-22 06:54:00 Daivd Riddle [facility] DIFFERENTIAL [facility] ED ECG INTERPRETATION 2020-09-22 06:40:53 David Riddle [facility] XR CHEST 1 VIEW PORTABLE 2020-09-22 06:36:00 David Riddle [facility] / BEDSIDE [facility] REPORT OF PROCEDURE - 2020-09-22 00:00:00 ProviderMolina [facility] ENDOSCOPY SCAN Scanning Center GLUCOSE BLOOD TEST 2020-09-17 00:00:00 [facility] OFFICE/OUTPATIENT VISIT 2020-09-17 00:00:00 [facility] EST GLUCOSE BLOOD TEST 2020-08-15 00:00:00 [facility] OFFICE/OUTPATIENT VISIT 2020-08-15 00:00:00 [facility] EST COMPREHEN METABOLIC 2020-08-15 00:00:00 [facility] PANEL LIPID PANEL 2020-08-15 00:00:00 [facility] GLYCOSYLATED HEMOGLOBIN 2020-08-15 00:00:00 [facility] TEST ASSAY OF NATRIURETIC 2020-08-15 00:00:00 [facility] PEPTIDE PFIZER- ADM SARSCOV2 2020-07-24 00:00:00 [facility] 30MCG/0.3ML 2ND PFIZER-ADM SARSCOV2 2020-06-28 00:00:00 [facility] 30MCG/0.3ML 1ST CBC W/PLT COUNT & AUTO 2020-04-30 18:40:[address] [facility] DIFFERENTIAL [facility] LACTIC ACID, VENOUS 2020-04-30 18:40:00 David Riddle [facility] COMPREHENSIVE METABOLIC 2020-04-30 18:40:00 David Riddle [facility] PANEL Kathleen [place] PROTHROMBIN TIME/INR 2020-04-30 18:40:00 David Riddle [facility] Center TYPE AND SCREEN, 2020-04-30 18:40:00 David Riddle [facility] AUTOMATED [facility] CBC W/PLT COUNT & AUTO 2020-04-30 18:40:[address] [facility] DIFFERENTIAL [facility] GLUCOSE BLOOD TEST 2020-04-26 00:00:00 [facility] OFFICE/OUTPATIENT VISIT 2020-04-26 00:00:00 [facility] EST POCT-GLUCOSE METER 2020-04-06 08:02:00 Frandy Lugo [facility] BASIC METABOLIC PANEL 2020-04-06 04:26:00 Frandy Lugo [facility] (7) Center CBC W/PLT COUNT & AUTO 2020-04-06 04:26:00 Frandy Lugo [facility] CBC W/PLT COUNT & AUTO 2020-04-06 04:26:00 Frandy Lugo [facility] POCT-GLUCOSE METER 2020-04-05 22:06:00 JanetFrandy [facility] POCT-GLUCOSE METER 2020-04-05 15:18:00 Frandy Lugo [facility] POCT-GLUCOSE METER 2020-04-05 11:37:00 Frandy Lugo [facility] IR PICC LINE PLACEMENT 2020-04-05 11:14:00 Frandy Lugo [facility] OLDER THAN 5 YRS [place] POCT-GLUCOSE METER 2020-04-05 09:23:00 [facility] POCT-GLUCOSE METER 2020-04-05 07:59:00 Frandy Lguo [facility] BASIC METABOLIC PANEL 2020-04-05 04:40:00 Frandy Lugo [facility] (7) Center CBC W/PLT COUNT & AUTO 2020-04-05 04:40:00 Frandy Lugo [facility] CBC W/PLT COUNT & AUTO 2020-04-05 04:40:00 [facility] VANCOMYCIN LEVEL, TROUGH 2020-04-04 23:37:00 Stephane Echavarria Awais [facility] POCT-GLUCOSE METER 2020-04-04 21:14:00 Frandy Lugo [facility] POCT-GLUCOSE METER 2020-04-04 15:41:00 JanetFrandy [facility] POCT-GLUCOSE METER 2020-04-04 11:36:00 Frandy Lugo [facility] POCT-GLUCOSE METER 2020-04-04 07:45:00 Frandy Lugo [facility] PROTEIN ELECTROPHORESIS, 2020-04-04 05:23:00 Te [facility] SERUM [facility] PTH, INTACT 2020-04-04 05:23:00 Te [facility] BASIC METABOLIC PANEL 2020-04-04 05:23:00 Frandy Lugo [facility] (7) [place] CBC W/PLT COUNT & AUTO 2020-04-04 05:23:00 Frandy Lugo [facility] DIFFERENTIAL Center CBC W/PLT COUNT & AUTO 2020-04-04 05:23:00 Parish Frandy C [facility] Center POCT-GLUCOSE METER 2020-04-03 21:31:00 Parish [facility] KAPPA / LAMBDA LIGHT 2020-04-03 17:10:00 Te [facility] SERUM [facility] HC LAB HIV-1 AG 2020-04-03 17:10:00 [facility] W/HIV-1&2 AB [facility] HEPATITIS PANEL, ACUTE 2020-04-03 17:10:00 [facility] CBC W/PLT COUNT & AUTO 2020-04-03 17:10:00 Te [facility] BASIC METABOLIC PANEL 2020-04-03 17:10:00 Frandy Lugo [facility] (7) Center CBC W/PLT COUNT & AUTO 2020-04-03 17:10:00 Te [facility] POCT-GLUCOSE METER 2020-04-03 16:05:00 Parish Frandy C [facility] POCT-GLUCOSE METER 2020-04-03 11:34:00 Janet [facility] Neida [facility] PROTEIN, RANDOM URINE 2020-04-03 10:52:00 eT [facility] SODIUM, RANDOM URINE 2020-04-03 10:39:[address] [facility] CREATININE, RANDOM URINE 2020-04-03 10:39:00 Frandy Lugo I [facility] UREA NITROGEN, RANDOM 2020-04-03 10:39:00 Frandy Lugo [facility] URINE Center URINALYSIS W/ 2020-04-03 10:39:00 Frandy Lugo [facility] B-TYPE NATRIURETIC 2020-04-03 10:20:00 Milagros Lainez [facility] (BNP) Shi Center US RENAL COMPLETE 2020-04-03 08:45:00 Frandy Luog [facility] POCT-GLUCOSE METER 2020-04-03 07:27:00 [facility] CBC (HEMOGRAM ONLY) 2020-04-03 04:48:00 [facility] BASIC METABOLIC PANEL 2020-04-03 04:48:00 [facility] (7) Center PHOSPHORUS 2020-04-03 04:48:00 [facility] VANCOMYCIN LEVEL, TROUGH 2020-04-02 22:02:[address] [facility] POCT-GLUCOSE METER 2020-04-02 21:17:[address] [facility] [address] LOWER EXTREMITY 2020-04-02 17:38:00 [facility] WITHOUT IV CONTRAST LEFT Center POCT-GLUCOSE METER 2020-04-02 15:51:00 [facility] POCT-GLUCOSE METER 2020-04-02 11:43:00 [facility] CBC (HEMOGRAM ONLY) 2020-04-02 06:31:00 [facility] BASIC METABOLIC PANEL 2020-04-02 06:31:00 [facility] (7) [place] POCT-GLUCOSE METER 2020-04-01 15:37:00 Rhonda, [facility] ANAEROBIC CULTURE 2020-04-01 13:30:14 , [facility] SURGICALLY OBTAINED 2020-04-01 13:30:14 , [facility] CULTURE + GRAM STAIN [facility] ANAEROBIC CULTURE 2020-04-01 13:21:05 [facility] SURGICALLY OBTAINED 2020-04-01 13:21:05 [facility] CULTURE + GRAM STAIN [facility] TISSUE EXAM 2020-04-01 13:12:00 [facility] POCT-GLUCOSE METER 2020-04-01 12:48:00 [facility] DEBRIDEMENT/I&D,WOUND 2020-04-01 11:52:00 [facility] EXTREMITY LOWER [facility] POCT-GLUCOSE METER 2020-04-01 11:37:00 Rhonda, [facility] ECG 12-LEAD 2020-04-01 08:42:02 Unknown, [facility] ECG 12-LEAD 2020-04-01 08:42:02 Unknown, [facility] POCT-GLUCOSE METER 2020-04-01 07:24:00 [facility] BASIC METABOLIC PANEL 2020-04-01 03:58:00 Rhonda, [facility] [place] POCT-GLUCOSE METER 2020-03-31 20:42:00 [facility] POCT-GLUCOSE METER 2020-03-31 15:27:00 [facility] POCT-GLUCOSE METER 2020-03-31 11:22:00 [facility] POCT-GLUCOSE METER 2020-03-31 07:18:00 [facility] BASIC METABOLIC PANEL 2020-03-31 04:47:00 [facility] (7) Center HEMOGLOBIN A1C 2020-03-31 04:47:00 [facility] CBC W/PLT COUNT & AUTO 2020-03-31 04:47:00 [facility] Center CBC W/PLT COUNT & AUTO 2020-03-31 04:47:00 [facility] POCT-GLUCOSE METER 2020-03-30 21:59:00 [facility] XR FOOT 3 VIEWS LEFT 2020-03-30 21:05:00 [facility] WOUND CULTURE + GRAM 2020-03-30 20:54:00 [facility] SARS-COV2/RT-PCR ([facility] 2020-03-30 20:50:00 [facility] REF LABS) Center BLOOD CULTURE 2020-03-30 20:49:00 [facility] CBC W/PLT COUNT & AUTO 2020-03-30 20:49:00 [facility] BASIC METABOLIC PANEL 2020-03-30 20:49:00 [facility] (7) [place] CBC W/PLT COUNT & AUTO 2020-03-30 20:49:00 [facility] CARDIAC CATH REPORT - 2020-03-30 00:00:00 Provider [facility] SCAN Scanning Center REPORT OF PROCEDURE - 2020-03-30 00:00:00 Provider [facility] ENDOSCOPY SCAN Scanning [facility] BLOOD CULTURE 2020-03-20 01:07:00 [place] [facility] LACTIC ACID, VENOUS 2020-03-20 01:07:00 [facility] CBC W/PLT COUNT & AUTO 2020-03-20 00:55:00 [place] [facility] DIFFERENTIAL [facility] BASIC METABOLIC PANEL 2020-03-20 00:55:00 [place] [facility] (7) [facility] C-REACTIVE PROTEIN 2020-03-20 00:55:00 David Riddle [facility] CBC W/PLT COUNT & AUTO 2020-03-20 00:55:00 [facility] DIFFERENTIAL [facility] BLOOD CULTURE 2020-03-20 00:54:00 David Riddle [facility] XR FOOT 3 VIEWS LEFT 2020-03-20 00:37:00 David Riddle [facility] GLUCOSE BLOOD TEST 2020-03-06 00:00:00 [facility] Insulin injection 2020-03-06 00[facility]PROPH/DIAG INJ 2020-03-06 00:00:00 [facility] SC/IM IMMUNIZATION ADMIN 2020-03-06 00:00:00 [facility] IIV4 VACCINE SPLT 0.5 ML 2020-03-06 00:00:00 [facility] IM VFC OFFICE/OUTPATIENT VISIT 2020-03-06 00:00:00 [facility] EST COMPREHEN METABOLIC 2020-03-06 00:00:00 [facility] PANEL LIPID PANEL 2020-03-06 00:[facility] GLYCOS[facility]IN 2020-03-06 00:00:00 [facility] TEST INCISION AND DRAINAGE 2019 07:17:[address] [facility] GLUCOSE BLOOD TEST 2019-11-09 00:00:00 [facility] OFFICE/OUTPATIENT VISIT 2019-11-09 00:00:00 [facility] EST COMPREHEN METABOLIC 2019-11-09 00:00:00 [facility] PANEL LIPID PANEL 2019-11-09 00:00:00 [facility] GLYCOSYLATED HEMOGLOBIN 2019-11-09 00:00:00 [facility] TEST GLUCOSE BLOOD TEST 2019-07-03 [facility]03 00:00:[facility] EST COMPREHEN METABOLIC 2019-07-03 00:00:00 [facility] PANEL LIPID PANEL 2019-07-03 00:00:00 [facility] GLYCOSYLATED HEMOGLOBIN 2019-07-03 00:00:00 [facility] TEST GLUCOSE BLOOD TEST 2019-04-04 [facility]-04 00:00:00 [facility] EST COMPREHEN METABOLIC 2019-04-04 00:00:00 [facility] PANEL LIPID PANEL 2019-04-04 00:00:00 [facility] GLYCOSYLATED HEMOGLOBIN 2019-04-04 00:00:00 [facility] TEST Plan of Care Planned Activity Planned Date Details Comments Source Future Scheduled 2023-03-[address] [facility]code [facility] 83517718] Future Scheduled 2023-03-[address] [facility] 00:[facility]00 (procedure) [code = [facility] 76897346] Future Scheduled 2023-03-[address] [facility] 00:00:00 (procedure) [code = [facility] 19398880] Future Scheduled 2023-03-[address] [facility] 00:00:00 (procedure) [code = [facility] Center 56237117] Future Scheduled 2023-03-[address] [facility] 00:00:00 (procedure) [code = [facility] 81002431] Future Scheduled 2023-03-[address] [facility] 00:00:00 (procedure) [code = Medical Center 79227500] Future Scheduled 2023-03-[address] [facility] 00:00:00 (procedure) [code = [facility] Center 54278296] Future Scheduled 2021-09-[address] [facility] examination Medical Center (regime/therapy) [code = 500835436] Future Scheduled 2021-09-[address] [facility] examination [facility] Center (regime/therapy) [code = 939037994] Future Scheduled 2021-09-[address] [facility] examination Medical Center (regime/therapy) [code = 647817120] Future Scheduled 2021-09-[address] [facility] 00[facility] examination [facility] Center (regime/therapy) [code = 004743244] Future Scheduled 2021-09-[address] [facility] 00[facility] examination Medical Center (regime/therapy) [code = 272740911] Future Scheduled 2021-09-[address] [facility] 00[facility] examination [facility] Center (regime/therapy) [code = 529230928] Future Scheduled 2021-09-[address] [facility] 00[facility] examination Medical Center (regime/therapy) [code = 832556076] Future Scheduled 2020-11-27 INFLUENZA VACCINE (#1) C [...] 00:00:00 measurement Medical Center (procedure) [code = 27411086] Future Scheduled 2020-06-[address] [facility]00 measurement [facility] (procedure) [code = 32832800] Future Scheduled 2020-06-[address] [facility] 00[facility]:00 measurement [facility] (procedure) [code = 91294745] Future Scheduled 2020-06-[address] [facility] 00:[facility]:00 measurement [facility] (procedure) [code = 51170222] Future Scheduled 2020-06-[address] [facility] 00:00:00 measurement [facility] (procedure) [code = 73571357] Future Scheduled 2020-06-[address] [facility] 00[facility]:00 measurement [facility] Center (procedure) [code = 07258810] Future Scheduled 2020-06-[address] [facility] 00:00:00 measurement Medical Center (procedure) [code = 90676126] Future Scheduled 2018-06-11 Urine screening for [facility] 00:00:00 protein (procedure) Medical Center [code = 309646696] Future Scheduled 2018-06-11 Urine screening [facility] 00:00:00 protein (procedure) Medical Center [code = 257509743] Future Scheduled 2018-06-11 Urine screening [facility] Test 00:00:00 protein (procedure) Medical Center [code = 412164090] Future Scheduled 2018-06-11 Urine screening [facility] 00:00:00 protein (procedure) Medical Center [code = 270393300] Future Scheduled 2018-06-11 Urine screening [facility] 00:00:00 protein (procedure) Medical Center [code = 607353125] Future Scheduled 2018-06-11 Urine screening [facility] 00:00:00 protein (procedure) Medical Center [code = 449491608] Future Scheduled 2018-06-11 Urine screening [facility] 00:00:00 protein (procedure) Medical Center [code = 657808149] Future Scheduled 1992 DTAP/TDAP/TD VACCINES CH I [...] Medica l Center colon (procedure) [code = 353258621] Future Scheduled [address] [facility] 00:00:00 malignant neoplasm of [facility] colon (procedure) [code = 833580556] Future Scheduled [address] [facility] 00:00:00 [facility] ne[facility] colon (procedure) [code = 768605826] Future Scheduled [address] [facility] 00:00:00 [facility] colon (procedure) [code = 682922707] Future Scheduled [address] [facility] 00:00:00 malignant ne[facility] of [facility] colon (procedure) [code = 472531644] Future Scheduled [address] [facility] 00:00:00 malignant ne[facility] colon (procedure) [code = 471929673] Future Scheduled [address] [facility] 00:00:00 malignant neoplasm of [facility] Center colon (procedure) [code = 847090869] Encounters Start End Encounter Admission Attending Care Care Encounter Source Date/Time Date/Time Type Type Clinicians Facility Department ID 2021-07-10 Outpatient [facility] [id number] Common 08:51:[id number] [facility] 2021-06-20 Outpatient [facility] [id number] [place] 17:29:31 [id number] [facility] 2020-05-24 Inpatient [facility] [id number] [facility] 09:38:00 -[id number] [facility] 2020-05-10 Inpatient [facility] [id number] [facility] 14:02:00 -20200510 [facility] 2021-08-05 2021-08-05 Outpatient RIMA MARTINEZ [facility] [id number] [facility] 10:43:00 10:43:00 DINORA peñacynthia 2021-08-05 2021-08-05 Outpatient FRANCESCA [facility] [id number] [facility] 10:43:00 10:43:00 DINORA e2-8eb1-38p [id number]- b ealt [id number] 0f4 [id number] 2021-08-05 2021-08-05 Outpatient DIANE, [facility] [id number] [facility] 07:10:00 07:10:00 MIRTA ealt 2021-08-05 2021-08-05 Outpatient DIANE, [facility] [id number] [facility] 07:10:00 07:10:00 MIRTA 22-4926-a4f cdf-47bc-a ealt f-[id number] alexander [id number] 2021-05-05 2021-06-05 Outpatient Neida NGUEYN [facility] [id number] [facility] 09:28:00 23:59:00 [facility] 2021-05-20 2021-05-20 Outpatient YANDY LAWSON [facility] [id number] [facility] 15:35:00 15:35:00 ealt 2021-05-20 2021-05-20 Outpatient YANDY LAWSON [facility] [id number] [facility] 15:35:00 15:35:00 e2-9rs1-86c be3-4b30-b ealt [id number] 0f4 [id number] 2021-05-16 2021-05-16 Outpatient YANDY LAWSON [facility] [id number] [facility] 12:33:00 12:33:00 ealth 2021-05-16 2021-05-16 Outpatient YANDY LAWSON [facility] [id number] [facility] 12:33:00 12:33:00 e2-4cn4-05g 999-41be-8 ealth [id number] 0f4 [id number] 2021-05-15 2021-05-15 Outpatient LULU, YANDY [facility] [id number] Access 08:15:00 08:15:[facility] 2021-05-15 2021-05-15 Outpatient YANDY LAWSON [facility] [id number] [facility] 08:15:00 08:15:00 e2-3zc5-97j [id number] [facility] [id number] 0f4 cc7f43 2021-05-14 2021-05-14 Outpatient SHELBY, [facility] [id number] Access 08:39:00 08:39:00 SAMANTHA [facility] 2021-05-14 2021-05-14 Outpatient SHELBY, [facility] [id number] Access 08:39:00 08:39:00 SAMANTHA e2-4ga0-65i [id number]-4243- 8 [facility] [id number] 0f4 [id number] 2021-05-13 2021-05-13 Outpatient DIANE [facility] [id number] [facility] 09:00:00 09:00:00 MIRTA [facility] 2021-05-13 2021-05-13 OFFICE/OUT DIANE [facility] [id number] Access 09:00:00 09:00:00 PATIENT MIRTA 22-4926-a4f 0af-4e30-a [facility] VISIT EST f-[id number] alexander [id number] 2021-05-12 2021-05-12 Outpatient DIANE [facility] [id number] [facility] 07:26:00 07:26:00 MIRTA [facility] 2021-05-12 2021-05-12 Outpatient DIANE [facility] [id number] [facility] 07:26:00 07:26:00 MIRTA e9-44df-910 [id number]-m [facility] [id number] 0185-02-072021-05-05 Outpatient Neida NGUYEN, [facility] RAD [id number] [facility] 10:26:00 23:59:00 [facility] 2021-05-01 2021-05-01 Outpatient DIANE, [facility] [id number] Access 11:26:00 11:26:00 [facility] 2021-05-01 2021-05-01 Outpatient DIANE, [facility] [id number] Access 11:26:00 11:26:00 MIRTA 22-4926-a4f [id number]-9yj3-f ealt f-[id number] alexander [id number] 2021-04-02 2021-04-02 Outpatient DIANE, [facility] [id number] Access 11:59:00 11:59:00 [facility] 2021-04-02 2021-04-02 [id number] Access 11:59:00 11:59:00 MIRTA 22-4926-a4f 378-4279-b ealt f-[id number] alexander [id number] 2021-03-27 2021-03-27 Outpatient DIANE, [facility] [id number] Access 08:12:00 08:12:00 [facility] 2021-03-27 2021-03-27 [id number] Access 08:12:00 08:12:00 MIRTA 22-4926-a4f 69e-4048-9 ealt f-[id number] alexander [id number] 2021-02-05 2021-02-05 Outpatient NURSE, [facility] [id number] Access 08:34:00 08:34:00 NURSE regina 2021-02-05 2021-02-05 Outpatient NURSE, [facility] [id number] Access 08:34:00 08:34:00 NURSE 22-4926-a4f [id number]-4773-9 [facility] f-[id number] alexander [id number] 2021-01-31 Outpatient DIANE, [facility] [id number] [facility] 12:07:00 12:07:00 MIRTA [facility] 2021-01-31 2021-01-31 Outpatient DIANE, [facility] [id number] [facility] 12:07:00 12:07:00 MIRTA e2-0cg9-70z [id number]-4d44-9 [facility] [id number] 0f4 [id number] 2021-01-29 2021-01-29 Outpatient DIANE, [facility] [id number] [facility] 10:00:00 10:00:00 MIRTA [facility] 2021-01-29 2021-01-29 OFFICE/OUT DIANE [facility] [id number] Access 10:00:00 10:00:00 PATIENT MIRTA 22-4926-a4f l73-4uxq-t [facility] VISIT EST f-[id number] alexander [id number] 2021-01-06 2021-01-06 Outpatient OSEI, [facility] [id number] Access 10:24:00 10:24:00 [facility] 2021-01-06 2021-01-06 Outpatient OSEI [facility] [id number] Access 10:24:00 10:24:00 JOSEE 22-4926-a4f [id number]-b [facility] f-[id number] alexander [id number] 2020-12-11 2020-12-11 Outpatient OSEI, [facility] [id number] Access 14:09:00 14:09:00 [facility] 2020-12-11 2020-12-11 Outpatient OSEI [facility] [id number] Access 14:09:00 14:09:00 JOSEE e2-3gt5-83u da5-4cb6-9 [facility] [id number] 0f4 [id number] 2020-12-11 2020-12-11 Outpatient NURSE, [facility] [id number] [facility] 13:49:00 13:49:00 NURSE [facility] 2020-12-11 2020-12-11 Outpatient NURSE, [facility] [id number] Access 13:49:00 13:49:00 NURSE 22-4926-a4f [id number]-4acf-8 [facility] f-[id number] alexander [id number] 2020-12-06 2020-12-06 Outpatient CONTRERAS, [facility] [id number] Access 10:17:00 10:17:00 MIRTA [facility] 2020-12-06 2020-12-06 Outpatient DIANE, [facility] [id number] Access 10:17:00 10:17:00 MIRTA 22-4926-a4f [id number] [facility] f-[id number] alexander [id number] 2020-11-04 2020-12-05 Outpatient C PATRICK [facility] [id number] [facility] 09:15:00 23:59:00 [facility] 2020-12-03 2020-12-03 Outpatient DIANE, [facility] [id number] Access 09:00:00 09:00:00 MIRTA [facility] 2020-12-03 2020-12-03 OFFICE/OUT DIANE, [facility] [id number] Access 09:00:00 09:00:00 PATIENT MIRTA 22-4926-a4f cc3-429e-b [facility] VISIT EST f-[id number] alexander [id number] 6740-09-07 2020-12-03 Outpatient CONTRERAS, [facility] [id number] Access 00:00:00 00:00:00 [facility] 2020-12-03 2020-12-03 Outpatient DIANE, [facility] [id number] [facility] 00:00:00 00:00:00 MIRTA ed-4120-b9c [id number]-h [facility] [id number] 27a [id number] 2020-10-07 2020-11-06 Outpatient Neida NGUYEN [facility] WC [id number] [facility] 08:58:00 15:34:00 [facility] 2020-11-02 2020-11-02 Outpatient DIANE, [facility] [id number] [facility] 10:08:00 10:08:00 [facility] 2020-11-02 2020-11-02 [facility] [id number] Access 10:08:00 10:08:00 MIRTA 22-4926-a4f 3ac-[id number] ealt f-[id number] alexander [id number] 2020-10-29 2020-10-29 Outpatient Neida CONTRERAS [facility] RAD [id number] [facility] 10:49:00 23:59:00 [facility] 2020-10-29 2020-10-29 [facility] [id number] [facility] 08:30:00 08:30:00 [facility] 2020-10-29 2020-10-29 OFFICE[facility] [id number] Access 08:30:00 08:30:00 PATIENT MIRTA 22-4926-a4f [id number] ealt VISIT EST f-[id number] alexander [id number] 2020-10-01 2020-10-01 Outpatient [facility] [id number] Access 13:25:00 13:25:00 MIRTA [facility] 2020-10-01 2020-10-01 [facility] [id number] Access 13:25:00 13:25:00 MIRTA 22-4926-a4f bbe-4dcc-9 ealt f-[id number] alexander [id number] 6913-06-27 2020-09-29 Hospital ER David Riddle [facility] [id number] [facility] 06:13:00 13:20:00 [facility] 2020-09-26 2020-09-26 Surgery Patrick, [facility] [id number] 07:00:00 08:30:00 [facility] 2020-09-26 2020-09-26 Anesthesia Joanie, [facility] [id number] 07:12:00 08:20:00 Event [facility] 2020-09-22 2020-09-22 Emergency ER [facility] Emergency [id number] [facility] 06:09:00 06:09:00 2020-09-22 2020-09-22 Travel [facility] [id number] [facility] 00:[facility]:00 [facility] 2020-09-17 2020-09-17 Outpatient [facility] [id number] Access 10:30:00 10:30:00 MIRTA [facility] 2020-09-17 2020-09-17 [facility] [id number] Access 10:30:00 10:30:00 PATIENT MIRTA 22-4926-a4f [id number]-[id number] [facility] f-[id number] alexander [id number] 2020-08-19 2020-08-19 [facility] [id number] Access 16:36:00 16:36:00 [facility] 2020-08-19 2020-08-19 Outpatient [facility] [id number] Access 16:36:00 16:36:00 NAIF 22-4926-a4f 77c-448d- a [facility] f-[id number] alexander [id number] 2020-08-15 2020-08-15 Outpatient [facility], [facility] [id number] Access 16:00:00 16:00:00 NAIF [facility] 2020-08-15 2020-08-15 OFFICE/OUT [facility], [facility] [id number] Access 16:00:00 16:00:00 PATIENT NAIF 22-4926-a4f [id number]- 8 ealt VISIT [facility] f-[id number] alexander [id number] 2020-07-04 2020-07-04 Outpatient ORI, [facility] [id number] Access 08:04:00 08:04:00 NAIF [facility] 2020-07-04 2020-07-04 Outpatient [facility], [facility] [id number] Access 08:04:00 08:04:00 NAIF 22-4926-a4f [id number]- 8 [facility] f-[id number] alexander [id number] 2020-06-28 2020-06-28 Outpatient NURSE, [facility] [id number] Access 09:35:00 09:35:00 NURSE [facility] 2020-06-28 2020-06-28 Outpatient NURSE, [facility] [id number] Access 09:35:00 09:35:00 NURSE [id number] [facility] [id number] de3 afab8a 2020-06-19 2020-06-19 Outpatient ORI, [facility] [id number] Access 10:00:00 10:00:00 NAIF [facility] 2020-06-19 2020-06-19 Outpatient [facility], [facility] [id number] Access 10:00:00 10:00:00 NAIF Estrella-4926-a4f 103-4d36- a [facility] f-[id number] alexander [id number] 2020-05-09 2020-05-09 Outpatient ORI, [facility] [id number] Access 12:10:00 12:10:00 NAIF [facility] 2020-05-09 2020-05-09 Outpatient [facility], [facility] [id number] Access 12:10:00 12:10:00 NAIF Estrella-4926-a4f 9af-4860- 9 [facility] f-[id number] alexander [id number] 2020-04-30 2020-04-30 Emergency ER [place], [facility] [id number] 18:09:00 19:41:00 [facility] 2020-04-30 2020-04-30 Emergency ER [facility] Emergency [id number] [facility] 17:53:00 17:53:00 2020-04-30 2020-04-30 Travel [facility] [id number] [facility]00 00:00:00 [facility] 2020-04-26 2020-04-26 Outpatient [facility], [facility] [id number] [facility] 10:00:00 10:00:00 NAIF [facility] 2020-04-26 2020-04-26 OFFICE/OUT [facility] [id number] Access 10:00:00 10:00:00 PATIENT NAIF Bravo4926-a4f [id number]-[id number]- a [facility] VISIT [facility] f-[id number] alexander [id number] 2020-04-22 2020-04-22 Outpatient ORI, [facility] [id number] [facility] 14:45:00 14:45:00 NAIF [facility] 2020-04-22 2020-04-22 [facility] [id number] Access 14:45:00 14:45:00 NAIF Bravo4926-a4f [id number]- b [facility] f-[id number] alexander [id number] 2020-04-22 2020-04-22 Outpatient [facility], [facility] [id number] Access 12:41:00 12:41:00 SUKUMAR [facility] 2020-04-22 2020-04-22 Outpatient IRIZARRY, [facility] [id number] [facility] 12:41:00 12:41:00 SUKUMAR e2-7uf1-46w [id number]- 9 [facility] [id number] 0f4 [id number] 2020-04-18 2020-04-18 Outpatient OMORI, [facility] [id number] [facility] 13:20:00 13:20:00 NAIF [facility] 2020-04-18 2020-04-18 Outpatient OMORI, [facility] [id number] [facility] 13:20:00 13:20:00 NAIF 22-4926-a4f [id number]- 9 [facility] f-[id number] alexander [id number] 2020-04-09 2020-04-09 Outpatient OMORI, [facility] [id number] [facility] 09:46:00 09:46:00 NAIF [facility] 2020-04-09 2020-04-09 Outpatient OMORI, [facility] [id number] [facility] 09:46:00 09:46:00 NAIF 22-4926-a4f 7fb-[id number] [id number] alexander [id number] 2020-03-30 2020-04-06 [facility] [id number] [facility] 19:31:00 13:42:00 Encounter Abel Alatorre Surinder M edical Shieh, Matthew C [place] 2020-04-04 2020-04-04 Outpatient OMORI, [facility] [id number] [facility] 14:43:00 14:43:00 [facility] 2020-04-04 2020-04-04 Outpatient OMORI, [facility] [id number] [facility] 14:43:00 14:43:00 NAIF [id number]-[id number] ealt [id number] alexander [id number] 2020-04-01 2020-04-01 Anesthesia Jose Raul, [facility] [id number] [facility] 11:51:00 12:50:00 Event [facility] 2020-04-01 2020-04-01 Surgery Patrick [facility] [id number] [facility] 11:30:00 12:45:00 [facility] 2020-04-01 2020-04-01 Orders [facility] [id number] [facility] 00:00:00 00:00:[address] [facility] 2020-03-30 2020-03-30 Emergency ER [facility] [id number] [facility] 19:22:00 19:22:00 2020-03-30 2020-03-30 Travel [facility] [id number] [facility] 00:[facility]:00 [facility] 2020-03-19 2020-03-20 Emergency ER Venkatesh [facility] [id number] [facility] 23:25:00 02:51:00 [facility] 2020-03-19 2020-03-19 Emergency ER [facility] Emergency [id number] [facility] 23:15:00 23:15:00 2020-03-19 2020-03-19 Travel [facility] [id number] [facility] 00[facility]00 [facility] 2020-03-08 2020-03-08 Outpatient DINH CALVO [facility] [id number] [facility] 12:03:00 12:03:00 [facility] 2020-03-08 2020-03-08 Outpatient DINH CALVO [facility] [id number] [facility] 12:03:00 12:03:00 [id number] [facility] [id number] 2020-03-06 2020-03-06 Outpatient ZOE, [facility] [id number] [facility] 15:00:00 15:00:00 [facility] 2020-03-06 2020-03-06 [facility] [id number] [facility] 15:00:00 15:00:00 PATIENT NAIF [id number] ealt VISIT EST [id number] alexander [id number] 2019 2019 Emergency ER [facility] [id number] [facility] 07:11:00 07:11:00 2019-11-20 2019-11-20 Outpatient OMORI, [facility] [id number] [facility] 10:30:00 10:30:00 [facility] 2019-11-20 2019-11-20 Outpatient [facility] xct776qn-6z 8ff 49q4n-6 [facility] 10:30:00 10:30:00 NAIF Bravo4926-a4f ea8-46d7- a ealt f-[id number] o06-a9oik8 alexander ow0042 2019-11-09 2019-11-09 Outpatient [facility] [id number] [facility] 16:15:00 16:15:00 [facility] 2019-11-09 2019-11-09 OFFICE/OUT [facility] dtm136pn-3g f4c 9x843-h [facility] 16:15:00 16:15:00 PATIENT NAIF Bravo4926-a4f w2x-5z84- 8 ealth VISIT EST f-[id number] 571-1b7866 alexander 2jc507 2019-09-28 2019-09-28 Outpatient [facility] pss471ci-6j 0d0 j1529-e [facility] 13:21:00 13:21:00 NAIF Bravo4926-a4f 189-4af1- 9 ealth f-57605466r 825-332438 alexander 20489t 2019-09-28 2019-09-28 Outpatient DINH CALVO [facility] 3ew3d2m1-6w 71dq388t-u [facility] 10:54:00 10:54:00 e2-3on0-52q 730-4d70-a ealth 0-tn7glp228 7ef-ba6cbd 0f4 88x032 2019-07-15 2019-07-15 Emergency [facility] [id number] [facility] 22:19:00 22:19:00 [id number] 2019-07-03 2019-07-03 OFFICE/OUT OMORI, [facility] egt625ms-2v 81c 205v4-c [facility] 10:30:00 10:30:00 PATIENT NAIF Bravo4926-a4f 8cf-4b4d- b ealt VISIT EST f-31255049m 4i6-kde5fc alexander t1f255 2019-05-09 2019-05-09 [facility] d398f-x [facility] 08:16:00 08:16:00 NAIF Bravo4926-a4f k9q-89u1- b [facility] f-[id number] 12b-ff4e3d alexander ada41d 2019-05-01 2019-05-01 Outpatient NURSE, [facility]051[facility]-6b 07a b0i4s-5 [facility] 09:27:00 09:27:00 NURSE Shelly4926-a4f eab-46d9-9 [facility] f-95002403h b96-49w72s alexander 3d7d99 2019-04-11 2019-04-11 [facility] 608 h7z30-x [facility] 17:52:00 17:52:00 NAIF Bravo4926-a4f s08-8b1b- 9 [facility] f-60729643p 1ed-4c31d3 alexander a7dbdd 2019-04-06 2019-04-06 [facility] cfd 29386-8 [facility] 17:33:00 17:33:00 NAIF Bravo4926-a4f 877-42c1- a ealt f-37703179r o64-05906z alexander 78dc28 2019-04-04 2019-04-04 OFFICE/OUT OMORI, [facility] rjv497mw-5d 0a8 1g94g-3 [facility] 14:30:00 14:30:00 PATIENT NAIF Bravo4926-a4f lyudmila-46ec- b ealt VISIT [facility] f-[id number] fd1-2857e5 alexander ab27a1 2018-09-07 2018-09-07 Outpatient OMORI, [facility] piw419qe-0v 7e5 64fea-3 [facility] 00:00:00 00:00:00 NAIF 22-4926-a4f 2ee-4361- b [facility] f-[id number] l4w-8f4a92 alexander 01044s 2018-09-06 2018-09-06 [facility]b 69a 0s1r9-8 [facility] 09:34:00 09:34:00 NAIF Estrella-4926-a4f cf2-4291- 9 [facility] f-[id number] db4-f91ed2 alexander 84f5b6 2018-07-26 2018-07-26 Outpatient [facility] [id number] [facility] 00:00:00 00:00:00 H, PROVIDER casey lth 2018-07-26 2018-07-26 Outpatient [facility] 8eb9b7x8-3x 6i78wx30-9 [facility] 00:00:00 00:00:00 H, PROVIDER e2-5er8-29w 24b-42 3c-8 [facility] 0-yl4mec514 036-5ea1f1 0f4 dc6a94 2018-07-26 2018-07-26 Outpatient DIANE, [facility] vce464pg-3i 7 hl6ny59-7 [facility] 00:00:00 00:00:00 MIRTA 22-4926-a4f c41-94l6-e [facility] f-42249098o h58-3n9f82 alexander d785c1 2018-07-26 2018-07-26 Outpatient OMORI, [facility] 0xj9d3y8-1a 877 ho732-8 [facility] 00:00:00 00:00:00 NAIF pierre-8mm1-79s 397-493a- a [facility] 0-zi5mxq803 9p0-o1yg5x 0f4 62702n 2018-07-26 2018-07-26 [facility] 499 j1l25-2 [facility] 00:00:00 00:00:00 NAIF Estrella-4926-a4f ba6-4f54- 8 [facility] f-09504923n 5i5-r5v00t alexander a45b7b 2018-07-25 2018-07-25 Outpatient OMSTEFANI, [facility] ybx123cn-2g 62b bbb95-e [facility] 00:00:00 00:00:00 NAIF Estrella-4926-a4f g09-8760- 8 [facility] f-63797256m cbf-5b3a7f alexander r9063q 2018-07-22 2018-07-22 Outpatient [facility] [id number] [facility] 00:00:00 00:00:00 H, PROVIDER casey [facility] 2018-07-22 2018-07-22 Outpatient [facility] 1ye0t5l1-9p 8kut9yw1-1 [facility] 00:00:00 00:00:00 H, PROVIDER gabby-0er5-40o 1b8-4b 5b-b [facility] 0-et3tjm392 54b-899e22 0f4 438493 1512-04-26 2018-07-22 Outpatient OMORI, [facility] ciw039yt-6x 44d 33k51-n [facility] 00:00:00 00:00:00 NAIF Estrella-4926-a4f 8cb-4f46- b [facility] f-45194284y c94-858i5x alexander 871f2f 2018-07-22 2018-07-22 Outpatient DIANE, [facility] nbg975pu-6y c 7673c2u-6 [facility] 00:00:00 00:00:00 MIRTA Sameer-4926-a4f m27-4ag5-n ealt f-98013919x 39a-2j8434 alexander cfbbac 2018-06-28 2018-06-28 Outpatient [facility] [id number] [facility] 00:00:00 00:00:00 H, PROVIDER casey lala 2018-06-28 2018-06-28 Outpatient [facility] 1xu9a1d0-9e 91329np5-f [facility] 00:00:00 00:00:00 H, PROVIDER gabby-2sr2-78k 17d-4e 23-9 [facility] 0-ky3vux980 046-469fb5 0f4 bc45ce 2018-03-30 2018-03-30 Outpatient [facility] [id number] [facility] 00:00:00 00:00:00 H, PROVIDER casey [facility] 2018-03-30 2018-03-30 Outpatient [facility] 6bz1b9n6-9k e39j4c66-8 [facility] 00:00:00 00:00:00 H, PROVIDER e2-9yw5-72g 710-43 22-8 [facility] 0-qm2ggp749 7o0-f9ds69 0f4 7d1bee 2018-03-30 2018-03-30 Outpatient CONTRERAS, [facility] cou137sk-5s 1 c3vi58g-0 [facility] 00:00:00 00:00:00 MIRTA 22-4926-a4f 56a-40cb-a [facility] f-[id number] o97-636c09 alexander 337251 6043-01-02 2018-03-30 Outpatient OMORI, [facility] raq919vw-5j 448 4z9jo-b [facility] 00:00:00 00:00:00 NAIF 22-4926-a4f 520-4c13- 8 [facility] f-[id number] c26-0ag8bm alexander 9b9a27 2017-12-28 2017-12-28 Outpatient [facility] [id number] [facility] 00:00:00 00:00:00 H, PROVIDER casey [facility] 2017-12-28 2017-12-28 Outpatient [facility] 1zt4i3c0-2z 1431mgm3-5 [facility] 00:00:00 00:00:00 H, PROVIDER e2-4dl9-67l bed-49 71-9 [facility] 0-xr4ubd776 255-19439v 0f4 06e2a8 2017-12-27 2017-12-27 Outpatient [facility] [id number] [facility] 00:00:00 00:00:00 H, PROVIDER casey lala 2017-12-27 2017-12-27 Outpatient [facility] 0ac8t8v8-8s j4687nyn-2 [facility] 00:00:00 00:00:00 H, PROVIDER e2-3wx9-67k 1d0-43 b0-a ealt 0-zs0zts060 44c-ecfa29 0f4 9hm132 2017-12-20 2017-12-20 Outpatient DIANE, [facility] smk671md-8q 9 c8k5664-0 [facility] 08:48:00 08:48:00 MIRTA 22-4926-a4f 224-45e3-9 ealt f-14342101c fc6-096b3d alexander 040c9a 2017-12-20 2017-12-20 Outpatient [facility] [id number] [facility] 00:00:00 00:00:00 H, PROVIDER ea lth 2017-12-20 2017-12-20 Outpatient [facility] 5jb6p9m2-3v 9tsnk19f-1 [facility] 00:00:00 00:00:00 H, PROVIDER e2-5rf0-18t b2c-4b 7d-b lt 0-au1mmx127 e28-17q86o 0f4 c568b3 2017-12-20 2017-12-20 Outpatient IRIZARRY, [facility] jmk427tr-8w 79a 44147-w [facility] 00:00:00 00:00:00 KATELINE 22-4926-a4f eae-4c31- b ealth f-81508620m 520-cp1320 alexander 0a3c1f 2017-12-20 2017-12-20 Outpatient OMORI, [facility] nyh029mh-8z 2e3 wds3v-2 [facility] 00:00:00 00:00:00 NAIF 22-4926-a4f da8-4f41- a ealth f-62873287v 12d-3adf05 alexander 0d5ff7 2017-12-20 2017-12-20 Outpatient NUNEZ, [facility] haf907cj-3f a7c 0r783-i [facility] 00:00:00 00:00:00 GAYTARI 22-4926-a4f 0d7-2a6u-1 ealth f-23762093t 0d3-c81b90 alexander 4b61d6 2017-12-20 2017-12-20 Outpatient JONAS, [facility] qpl419ix-4t cf 18vyw3-c [facility] 00:00:00 00:00:00 MAEVE 22-4926-a4f 051-44b8-b [facility] f-45653992q 1q2-4i6301 alexander aee2d5 2017-07-14 2017-07-14 Outpatient [facility] [id number] [facility] 00:00:00 00:00:00 H, PROVIDER casey [facility] 2017-07-14 2017-07-14 Outpatient [facility] 8ib3h7m6-0h bj5a3ax7-l [facility] 00:00:00 00:00:00 H, PROVIDER e2-3dd4-60c 109-47 80-a ealt 0-xw8lvf978 784-g64759 0f4 01e0fc 2017-07-14 2017-07-14 Outpatient [facility] 2pe4b1u5-4t f0f 5y96s-z [facility] 00:00:00 00:00:00 e2-6it7-86d 98a-4568-b ealt 0-wr5xuq395 001-941db6 0f4 9c42e9 2017-07-14 2017-07-14 Outpatient ENRIQUE, [facility] 6tt8g3z5-9f 7d1 k7dnz-8 [facility] 00:00:00 00:00:00 GAYTARI e2-5lu2-18v 7cb-4bf9-9 ealt 0-ov1utk571 c26-1028t5 0f4 602990 5703-03-16 2017-06-11 Outpatient OMORI, [facility] hkv009yv-0j ded dp699-0 [facility] 00:00:00 00:00:00 NAIF 22-4926-a4f 849-421a- a ealt f-21601941j 11b-54fdd4 alexander 8a4363 2017-06-10 2017-06-10 Outpatient [facility] [id number] [facility] 00:00:00 00:00:00 H, PROVIDER casey [facility] 2017-06-10 2017-06-10 Outpatient [facility] 3km9b6i6-1p u8pyv4nu-8 [facility] 00:00:00 00:00:00 H, PROVIDER e2-2rs1-54p a95-4d 18-8 ealth 0-gk5raw097 67d-88e2c2 0f4 2eef4c 2017-06-10 2017-06-10 Outpatient DIANE, [facility] ohg311rl-9a e px0a1as-6 [facility] 00:00:00 00:00:00 MIRTA 22-4926-a4f 3ac-43d9-9 ealth f-51306121p 6de-71z452 alexander ceaffe 2017-06-10 2017-06-10 Outpatient MANAV, [facility] opb738hp-7e 27 p4rija-3 [facility] 00:00:00 00:00:00 VITA 22-4926-a4f 0ec-4f3f -8 ealth f-64079850o 6b9-6c5u55 alexander 38q934 2017-06-10 2017-06-10 Outpatient OMORI, [facility] bdd763xa-7z 6d7 uc099-a [facility] 00:00:00 00:00:00 NAIF 22-4926-a4f w9i-9004- b ealth f-89728616e 499-dm865o alexander fkt755 2017-04-09 2017-04-09 Outpatient OMORI, [facility] bck459zu-7o a22 7nmx7-1 [facility] 13:28:00 13:28:00 NAIF 22-4926-a4f 27b-4f1f- 8 ealth f-43446543z 3ef-fa2b8f alexander 99714t 2017-04-09 2017-04-09 Outpatient [facility] [id number] [facility] 00:00:00 00:00:00 H, PROVIDER ea lth 2017-04-09 2017-04-09 Outpatient [facility] 3zd1r1b7-1b kg11309b-8 [facility] 00:00:00 00:00:00 H, PROVIDER e2-3xo5-36r acc-4b a3-b ealth 0-wq1zlf722 y94-90ys1i 0f4 8z5402 2017-04-09 2017-04-09 Outpatient DIANE, [facility] oqf610pw-2f d 7407ja7-7 [facility] 00:00:00 00:00:00 MIRTA 22-4926-a4f be7-40fa-9 ealt f-17186357d fad-beba5c alexander 745e5a 2017-03-30 2017-03-30 Outpatient [facility] [id number] [facility] 00:00:00 00:00:00 H, PROVIDER casey [facility] 2017-03-30 2017-03-30 Outpatient [facility] 9yl1q9w8-2u y8h8h817-o [facility] 00:00:00 00:00:00 H, PROVIDER e2-2rr2-01e e7f-41 b3-8 [facility] 0-nr3wxk078 0ab-2rd030 0f4 5ba25a 2017-02-09 2017-02-09 Outpatient [facility] [id number] Access 00:00:00 00:00:00 H, PROVIDER casey lala 2017-02-09 2017-02-09 Outpatient [facility] 7hr0g5u3-7i 33p5qa3p-3 [facility] 00:00:00 00:00:00 H, PROVIDER e2-6ia9-21q eed-49 91-9 [facility] 0-fr7vqo555 725-53779y 0f4 de8ac2 2017-02-09 2017-02-09 Outpatient [facility] jyo627hd-8l b35 ua669-6 [facility] 00:00:00 00:00:00 NAIF -4926-a4f y21-1h99- a ealt f-82535713n v64-69f8w8 alexander 88c1fc 2017-02-09 2017-02-09 Outpatient DIANE, [facility] mcv778ni-5t d 85y0a07-z [facility] 00:00:00 00:00:00 MIRTA 22-4926-a4f 34c-46bd-b ealth f-66604702a 70f-x1139h alexander faf56f 2016-12-15 2016-12-15 Outpatient [facility] [id number] [facility] 00:00:00 00:00:00 H, PROVIDER casey [facility] 2016-12-15 2016-12-15 Outpatient [facility] 9yo1a0e3-0u 725ta784-7 [facility] 00:00:00 00:00:00 H, PROVIDER e2-6gc6-40t 3ba-4a 3c-8 ealt 0-rg7qjd892 9fd-cceee0 0f4 5f5e8e 2016-12-15 2016-12-15 Outpatient [facility]LY [facility] 78p2276y-86 01djo4s8-7 [facility] 00:00:00 00:00:00 45-8s8s-s0h v5i-94d2-i ealt d-b2p036792 00b-ed1c16 354 e7dd8d 2016-12-12 2016-12-12 Outpatient [facility] [id number] Access 00:00:00 00:00:00 H, PROVIDER casey [facility] 2016-12-12 2016-12-12 Outpatient [facility] 7wr4q1f4-8c o4539lg9-r Access 00:00:00 00:00:00 H, PROVIDER e2-7zf2-35m 6fa-4f 7f-9 ealt 0-kv7nfy836 402-fe6f8d 0f4 1526bf 2016-12-12 2016-12-12 Outpatient ISAURA, [facility] 0yv9a9q1-9y 91 0k01ed-3 [facility] 00:00:00 00:00:00 CHRISTINA e2-4mu7-07s u8p-2kqy- 9 ealt 0-tr3gvs112 558-4d60f7 0f4 f917d6 2016-12-11 2016-12-11 Outpatient [facility]LY [facility] 35v1026p-56 b03p5l4h-1 [facility] 00:00:00 00:00:00 45-4j4w-y8w 3fe-4dc9-9 ealth d-y8q111939 474-f474cb 354 c4eb2b 2016-12-10 2016-12-10 Outpatient [facility] [id number] [facility] 00:00:00 00:00:00 H, PROVIDER casey molina 2016-12-10 2016-12-10 Outpatient [facility] 9st4s8i6-1b 961rud2b-0 [facility] 00:00:00 00:00:00 H, PROVIDER e2-4mp3-43f 706-4a aa-b ealth 0-tq0wgl069 af4-5611ae 0f4 696037 9040-09-14 2016-12-10 Outpatient [facility] 24r8632n-40 8ov73w38-w [facility] 00:00:00 00:00:00 45-4y5i-z1h m1i-5900-h ealt d-a9o100374 w6z-86o7i0 354 5b51dc 2016-12-01 2016-12-01 Outpatient [facility] [id number] [facility] 00:00:00 00:00:00 H, PROVIDER casey molina 2016-12-01 2016-12-01 Outpatient [facility] 6fs7c4h1-3y 2gi4d9x8-1 Access 00:00:00 00:00:00 H, PROVIDER e2-5yu2-59q 4f5-4c 72-9 ealt 0-zx4kff824 o2d-5lr349 0f4 8ff05c 2016-12-01 2016-12-01 Outpatient DIPIKA [facility] 44b2940x-59 42 fo12wg-0 [facility] 00:00:00 00:00:00 ALVELLE 45-0l9p-e2o 636-4710-8 ealth d-l2n657240 2ff-2f9a6a 354 ef57e5 2016-12-01 2016-12-01 Outpatient [facility] 30x4318u-85 epmn2602-l [facility] 00:00:00 00:00:00 45-6u3d-n3a df0-4210-a ealth d-c7p999108 8h4-521i4i 354 6m1537 2016-11-27 2016-11-27 Outpatient [facility] [id number] Access 00:00:00 00:00:00 H, PROVIDER casey lala 2016-11-27 2016-11-27 Outpatient [facility] 5sr7i3x5-3i njw0x7ln-2 [facility] 00:00:00 00:00:00 H, PROVIDER e2-8eo8-55w db1-44 51-9 ealt 0-xk0pzo888 1g9-j4u785 0f4 439288 8288-09-01 2016-11-27 Outpatient CANAMAR, [facility] 59n0726r-71 72 d3ce56-8 [facility] 00:00:00 00:00:00 LAVELLE 45-6e0b-h3h b63-15u0-c ealt d-z8n222283 384-b0c4cd 354 eb80b5 2016-11-26 2016-11-26 Outpatient [facility] [id number] Access 00:00:00 00:00:00 H, PROVIDER casey [facility] 2016-11-26 2016-11-26 Outpatient [facility] 2vr2n3b6-3d 4l188pt9-o [facility] 00:00:00 00:00:00 H, PROVIDER e2-2kn0-27v c45-46 cf-b ealt 0-mq8eqb897 4ad-4c0e68 0f4 37dc7c 2016-11-26 2016-11-26 Outpatient CANAMAR, [facility] 55l7350c-94 c0 ur0627-8 [facility] 00:00:00 00:00:00 LAVELLE 45-4s1n-u4w ae7-40e5-a ealt d-q0j649357 n05-6p65e0 354 fc21e9 2016-11-20 2016-11-20 Outpatient [facility] [id number] [facility] 00:00:00 00:00:00 H, PROVIDER casey lala 2016-11-20 2016-11-20 Outpatient [facility] 1zr3c0x7-3a [id number] [facility] 00:00:00 00:00:00 H, PROVIDER e2-6oa6-78c 2e2-42 0d-8 ealth 0-jr6ont842 j04-383h66 0f4 54t676 2016-11-20 2016-11-20 Outpatient CANAMAR, [facility] 41e7038t-78 60 12k769-f [facility] 00:00:00 00:00:00 LAVELLE 45-1f2l-v0i 250-49d0-a [facility] d-n2k349788 aa8-0b8ad1 354 905875 6966-08-23 2016-11-18 Outpatient [facility] [id number] Access 00:00:00 00:00:00 H, PROVIDER casey [facility] 2016-11-18 2016-11-18 Outpatient [facility] 6ht5w1y9-2r [id number]-e [facility] 00:00:00 00:00:00 H, PROVIDER e2-5sx6-58m 7d4-4d a9-8 ealt 0-bu2pkn356 i44-87crvh 0f4 c11e26 2016-11-18 2016-11-18 Outpatient CHARLY [facility]ALES [facility] 56w8622m-26 [id number]-g Access 00:00:00 00:00:00 45-2b2n-y5s ea3-4257-a [facility] d-q3v764006 2cc-9275f9 354 e49a35 2016-11-12 2016-11-12 Outpatient DORISR, [facility] 08k1595a-46 29 28j758-q Access 00:00:00 00:00:00 LAVELLE Kemp-7v1k-s8r c0z-3tu7-x [facility] d-l3h943815 t9e-564gn1 354 sp5893 2016-11-11 2016-11-11 Outpatient [facility] [id number] Access 00:00:00 00:00:00 H, PROVIDER casey [facility] 2016-11-11 2016-11-11 Outpatient [facility] 5zn6m5j4-1x [id number]-6 [facility] 00:00:00 00:00:00 H, PROVIDER e2-0tj4-90n 968-42 07-b ealt 0-gq5cqz024 c64-704664 0f4 9f36c8 2016-11-11 2016-11-11 Outpatient CANAMAR, [facility] 08i7258k-42 7c n68h8j-u [facility] 00:00:00 00:00:00 LAVELLE 45-5g8d-c4s 633-4aa9-8 ealt d-g9i320458 fff-257203 354 ee4a0e 2016-10-30 2016-10-30 Outpatient [facility] [id number] [facility] 00:00:00 00:00:00 H, PROVIDER casey [facility] 2016-10-30 2016-10-30 Outpatient [facility] 1le1a8b8-1r [id number] [facility] 00:00:00 00:00:00 H, PROVIDER e2-9hy1-74h 47b-46 3e-8 ealt 0-ie5ajg250 f0q-lnt8x1 0f4 7g6172 2016-10-30 2016-10-30 Outpatient [facility] 96t3445g-88 5585s35l-k [facility] 00:00:00 00:00:00 45-8a1j-f1w evert-47eb-b [facility] d-o2x807971 9t7-75b2ah 354 7383d1 2016-10-26 2016-10-26 Outpatient [facility] [id number] [facility] 00:00:00 00:00:00 H, PROVIDER casey [facility] 2016-10-26 2016-10-26 Outpatient [facility] 3hh7o4g1-2b 1ek01s89-1 [facility] 00:00:00 00:00:00 H, PROVIDER e2-1ec7-82q 1e9-4c db-b ealt 0-fv7lkh397 m50-y113sq 0f4 48ce57 2016-10-26 2016-10-26 Outpatient MENDIETA, [facility] 1vf2e1n6-5g e8 98hb95-6 [facility] 00:00:00 00:00:00 CHRISTINA e2-2pg2-46e l1a-1989- 9 ealt 0-ar6rvj300 v6x-z8i2j3 0f4 7373c9 2016-10-26 2016-10-26 Outpatient OMORI, [facility] 4yl7x6x3-8o 5e5 4u6fb-9 [facility] 00:00:00 00:00:00 NAIF e2-2ob1-18v n13-7j04- b ealth 0-gu2thb667 000-jx0916 0f4 79f96a 2016-10-09 2016-10-09 Outpatient CANAMAR, [facility] [id number]-30 cf 6536cf-2 [facility] 00:00:00 00:00:00 LAVELLE Kemp-2c3e-e2x 038-47e9-8 ealth d-w1u436920 93d-796d4d 354 1ee1de 2016-10-08 2016-10-08 Outpatient [facility] [id number] [facility] 00:00:00 00:00:00 H, PROVIDER [facility] 2016-10-08 2016-10-08 Outpatient [facility] 4dc1r3p5-3t [id number] [facility] 00:00:00 00:00:00 H, PROVIDER gabby-4yt7-58u 757-44 91-a ealth 0-zu9bka033 338-7c8ea0 0f4 n7l038 2016-10-08 2016-10-08 Outpatient CANAMAR, [facility] 17c2135m-66 46 uo6ql9-2 [facility] 00:00:00 00:00:00 LAVELLE Pepe8l6t-s2m i20-2l1j-x ealth d-h5s060872 65d-fda44a 354 c196f4 2016-10-05 2016-10-05 Outpatient [facility] [id number] Access 00:00:00 00:00:00 H, PROVIDER [facility] 2016-10-05 2016-10-05 Outpatient [facility] 4er6k3p1-3m [id number]-0 [facility] 00:00:00 00:00:00 H, PROVIDER gabby-1rt2-49g 137-4e 58-a ealth 0-af0fnc873 0aa-18335s 0f4 pb544k 2016-10-05 2016-10-05 Outpatient CANAMAR, [facility] [id number]-62 c9 0k53m8-u [facility] 00:00:00 00:00:00 LAVELLE 45-2y4g-k2r 2m1-146v-s ealth d-z1k030768 w33-kk37zr 354 [id number] 8720-06-29 2016-09-24 Outpatient [facility] [id number] Access 00:00:00 00:00:00 H, PROVIDER [facility] 2016-09-24 2016-09-24 Outpatient [facility] 8kd4s6s3-9n 77mb2l69-r [facility] 00:00:00 00:00:00 H, PROVIDER e2-3zd4-18f 9da-4d 9e-a ealt 0-rz8gek385 p71-02799c 0f4 0747d9 2016-09-24 2016-09-24 Outpatient MENDIETA, [facility] 0dm7j1i5-8h af [id number] [facility] 00:00:00 00:00:00 CHRISTINA e2-6bp4-60w w57-632u- b ealth 0-nn5eob483 p3t-3k805q 0f4 7bee42 2016-09-24 2016-09-24 Outpatient OMORI, [facility] 7hv6z2w2-1p 060 8o1k5-4 [facility] 00:00:00 00:00:00 NAIF e2-8lh3-10h 4bb-4165- a ealt 0-pj6cky037 98a-2d066t 0f4 74a639 2016-09-22 2016-09-22 Outpatient [facility] [id number] Access 00:00:00 00:00:00 H, PROVIDER [facility] 2016-09-22 2016-09-22 Outpatient [facility] 5hz8c8t3-0m [id number]-1 [facility] 00:00:00 00:00:00 H, PROVIDER e2-4jz9-92p 072-4c 2a-9 ealth 0-dh6edc983 094-b1ac8e 0f4 1311cf 2016-09-22 2016-09-22 Outpatient TIMA, [facility] 4ck4z1p7-0d 292 72ebd-f [facility] 00:00:00 00:00:00 OSMAN e2-7yl4-81m 330-4e57-a ealt 0-el3jub713 92e-33cd44 0f4 4p1161 2016-09-22 2016-09-22 Outpatient DIANE, [facility] 1aw5y0g7-9w 2 3v4jha5-r [facility] 00:00:00 00:00:00 MIRTA e2-3yy2-00f 87b-4174-a ealth 0-nd2gue346 470-75d923 0f4 1573c2 2016-08-26 2016-08-26 Outpatient [facility] [id number] [facility] 00:00:00 00:00:00 H, PROVIDER ea lth 2016-08-26 2016-08-26 Outpatient [facility] 3mk6t1p2-1g i885uilf-j [facility] 00:00:00 00:00:00 H, PROVIDER e2-8fq8-85r a1b-4a 92-8 ealth 0-oy5ojv533 x07-6qel16 0f4 1uf139 2016-08-26 2016-08-26 Outpatient MENDIETA, [facility] 5sw4d9q0-7j da ixi22z-3 [facility] 00:00:00 00:00:00 CHRISTINA e2-2qu1-02s 81b-44be- a ealth 0-cg8hjh236 452-2x5108 0f4 3c8858 2016-08-26 2016-08-26 Outpatient IRIZARRY, [facility] 7we7s2s2-3v afb 2tv92-6 [facility] 00:00:00 00:00:00 KATELINE e2-2bf7-45b 026-4182- b ealth 0-og8rcc207 11d-3o5840 0f4 3j0276 2016-08-26 2016-08-26 Outpatient OMORI, [facility] 6xb4o1b5-0r c21 101ca-e [facility] 00:00:00 00:00:00 NAIF e2-3ap8-31x s8m-9355- a ealth 0-pc8dqo140 ec7-n22980 0f4 92c4e9 2016-08-03 2016-08-03 Outpatient TIMA, [facility] axx681wv-8m e56 8zq66-n [facility] 16:13:00 16:13:00 OSMAN 22-4926-a4f 17d-4116-b ealt f-10405922i 320-16acc1 alexander 11df8e 2016-07-29 2016-07-29 Outpatient [facility] [id number] [facility] 00:00:00 00:00:00 H, PROVIDER [facility] 2016-07-29 2016-07-29 Outpatient [facility] 9pu8u7e9-1r [id number] [facility] 00:00:00 00:00:00 H, PROVIDER april6kr0-37w 2c6-43 ca-[facility] 0-fp5ypw836 fe8-48fadf 0f4 54c2ba 2016-07-29 2016-07-29 Outpatient TIMA, [facility] akm616sn-7j a6f 37af3-8 [facility] 00:00:00 00:00:00 OSMAN 22-4926-a4f 6ad-4eac-9 [facility] f-48109144j ab0-86e98c alexander h9881d 2016-07-29 2016-07-29 Outpatient CONTRERAS, [facility] idm802ri-0m d z64ua22-3 [facility] 00:00:00 00:00:00 MIRTA 22-4926-a4f 3q7-62zz-8 ealt f-00254678n 67a-3d9ddd alexander hcu764 2016-07-24 2016-07-24 Outpatient [facility] [id number] [facility] 00:00:00 00:00:00 H, PROVIDER [facility] 2016-07-24 2016-07-24 Outpatient [facility] 8fa6j5m2-3r [id number] [facility] 00:00:00 00:00:00 H, PROVIDER gabby-0aj2-36v 046-4f 02-a ealt 0-le9ehv962 4w3-92yy99 0f4 062d54 2016-07-24 2016-07-24 Outpatient MENDIETA, [facility] mij044rs-8e d2 859e73-r [facility] 00:00:00 00:00:00 CHRISTINA 22-4926-a4f z5q-12cb- b [facility] f-15674978h a3v-896186 alexander c19d1a 2016-07-24 2016-07-24 Outpatient ZOE, [facility] tvr478hn-9t e3f h8s38-v [facility] 00:00:00 00:00:00 NAIF 22-4926-a4f y0k-20z8- 8 ealt f-23941012n bba-be69db alexander 0b9f49 2016-07-17 2016-07-17 Outpatient ENRIQUE, [facility] xqv797ps-6g 163 u75mq-1 [facility] 00:00:00 00:00:00 CAROLYN 22-4926-a4f o25-2401-z [facility] f-71852079t ec6-9ef36c alexander [id number] 0058-04-20 2016-07-16 Outpatient [facility] [id number] [facility] 00:00:00 00:00:00 H, PROVIDER ea lth 2016-07-16 2016-07-16 Outpatient [facility] 8oa9a5u2-5v [id number]-6 [facility] 00:00:00 00:00:00 H, PROVIDER e2-9oy6-67w f7c-42 66-9 [facility] 0-pi7tfx691 762-340d90 0f4 1876fa 2016-07-16 2016-07-16 Outpatient IRIZARRY, [facility] 51w5381m-12 692 5j0w7-p Access[facility] 00:00:00 00:00:00 KATELINE 45-0k7m-d4c 17f-442e- a ealt d-k2g468808 ddf-0t9411 354 e90b6a 2016-07-16 2016-07-16 Outpatient CONTRERAS, [facility] vdw089jc-9g c 0387fac-c [facility] 00:00:00 00:00:00 MIRTA 22-4926-a4f 06b-4903-a ealt f-11947294g v14-1p8z98 alexander u65760 2016-07-16 2016-07-16 Outpatient VERA [facility] 14y0196e-27 74akh303-d [facility] 00:00:00 00:00:00 45-6m9z-e8h 049-4b28-8 [facility] d-n7o743269 36f-41q173 354 iwa936 2016-07-16 2016-07-16 Outpatient ENRIQUE, [facility] nct086qq-2f 2cb 882z8-l [facility] 00:00:00 00:00:00 SALIMAJOSH 22-4926-a4f ec3-43e2-b ealt f-75538751f 989-acffbb alexander acf4d2 2016-07-14 2016-07-14 Outpatient [facility] 107 [id number] [facility] 00:00:00 00:00:00 H, PROVIDER casey [facility] 2016-07-14 2016-07-14 Outpatient [facility] 1bf1b3c0-4j 459h0d9f-2 [facility] 00:00:00 00:00:00 H, PROVIDER gabby-8xp8-24m 52f-4d 8d-9 [facility] 0-lh6ztl742 596-929d1e 0f4 5cbb75 2016-07-14 2016-07-14 Outpatient DIANE, [facility] hxv774dj-6i f u956898-0 [facility] 00:00:00 00:00:00 MIRTA 22-4926-a4f 486-43ef-b ealth f-83900188p 58e-c764a4 alexander 4a23b4 2016-07-14 2016-07-14 Outpatient TIMA, [facility] tsl974qt-9i b38 4dg3x-7 [facility] 00:00:00 00:00:00 OSMAN 22-4926-a4f 5o4-9l12-z ealth f-87036055t 532-cac9af alexander bf28b2 2016-07-06 2016-07-06 Outpatient [facility] 107 [id number] [facility] 00:00:00 00:00:00 H, PROVIDER casey lala 2016-07-06 2016-07-06 Outpatient [facility] 7hb2k9m9-4a 748y6py8-z [facility] 00:00:00 00:00:00 H, PROVIDER gabby-4fw6-05c 7e3-46 ad-b ealt 0-lf2ilt757 60a-39100l 0f4 991952 2279-04-10 2016-07-06 Outpatient TIMA, [facility] dqq979xp-4k ca6 0064f-c [facility] 00:00:00 00:00:00 OSMAN 22-4926-a4f 308-477e-b ealt f-17491621g 6l0-s2j16b alexander befcac 2016-07-06 2016-07-06 Outpatient CONTRERAS, [facility] hew894mj-5r a 94p489u-2 [facility] 00:00:00 00:00:00 MIRTA 22-4926-a4f i71-5p78-0 ealt f-52360309y l9s-ymf53a alexander i6003m 2016-07-01 2016-07-01 Outpatient [facility] 107 [id number] [facility] 00:00:00 00:00:00 H, PROVIDER ea lth 2016-07-01 2016-07-01 Outpatient [facility] 6yy5x8p9-1j k135u4q7-0 [facility] 00:00:00 00:00:00 H, PROVIDER e2-0on7-14r fbd-41 57-[facility] 0-ez6rhm528 1x2-21685o 0f4 13dfc5 2016-07-01 2016-07-01 Outpatient VERACHARLY [facility] 92z2709y-90 n10k7w75-3 [facility] 00:00:00 00:00:00 45-3k8p-f9t 8ef-44fa-9 ealt d-m0i255241 145-03bbe1 354 734d1e 2016-07-01 2016-07-01 Outpatient IRIZARRY, [facility] 32x0699k-21 9f6 1438d-f [facility] 00:00:00 00:00:00 KATELINE 45-8k9x-y9o z70-4bsr- 9 ealt d-f3s204714 0v0-5xc7x2 354 434937 1906-04-02 2016-06-28 Outpatient TIMA, [facility] xzk114gf-9p ba4 p8kj5-5 [facility] 00:00:00 00:00:00 OSMAN 22-4926-a4f fb6-4103-8 ealt f-92852921l o72-0834s7 alexander 9w903h 2016-06-25 2016-06-25 Outpatient [facility] 107 [id number] [facility] 00:00:00 00:00:00 H, PROVIDER ea lth 2016-06-25 2016-06-25 Outpatient [facility] 4wr9k6o9-5h 02909vp8-3 [facility] 00:00:00 00:00:00 H, PROVIDER e2-8qr1-18i 98e-47 c8-a ealt 0-yg3sqn996 b8b-v594g3 0f4 4f1aaa 2016-06-25 2016-06-25 Outpatient TIMA, [facility] nae491bc-5f 9e0 5xu9g-1 [facility] 00:00:00 00:00:00 OSMAN 22-4926-a4f 533-4298-a ealt f-59270219v 3l1-h1c2cj alexander 449939 6315-03-30 2016-06-25 Outpatient MENDIETA, [facility] 98e4079i-12 5d 7gyw3j-4 [facility] 00:00:00 00:00:00 CHRISTINA 45-6n2o-d4a r96-6920- a ealth d-a3y159782 74d-bc9f79 354 r81768 2016-06-25 2016-06-25 Outpatient OMORI, [facility] 20w6534e-30 643 p2hg1-7 [facility] 00:00:00 00:00:00 NAIF 45-0g7d-f9w 9v3-10z4- b ealth d-q5h895256 def-275d83 354 tm427j 2016-06-25 2016-06-25 Outpatient CONTRERAS, [facility] gwo226ej-8t f at16334-3 [facility] 00:00:00 00:00:00 MIRTA 22-4926-a4f o6u-51yk-v ealth f-00631866q 4t5-930ok2 alexander bc1d2c 2016-06-08 2016-06-08 Outpatient [facility] 107 [id number] [facility] 00:00:00 00:00:00 H, PROVIDER [facility] 2016-06-08 2016-06-08 Outpatient [facility] 2ao5y2o1-0e 37c751n5-m [facility] 00:00:00 00:00:00 H, PROVIDER e2-4bb6-21n d53-4b 39-b ealth 0-ek6cad742 49d-bb0c97 0f4 a273a3 2016-06-08 2016-06-08 Outpatient VERA, [facility] 58g9832b-03 f9qv5020-2 [facility] 00:00:00 00:00:00 45-6l0i-w1a 84c-42c0-9 ealth d-f2n265669 644-e9c44e 354 a4d7b9 2016-06-08 2016-06-08 Outpatient IRIZARRY, [facility] 32m4209i-62 cdb 48828-i [facility] 00:00:00 00:00:00 KATELINE 45-0c4p-p1m 41d-4957- b ealth d-m9t494160 5p2-x3payj 354 38a8c2 2016-05-19 2016-05-19 Outpatient [facility] 107 [id number] Access 00:00:00 00:00:00 H, PROVIDER [facility] 2016-05-19 2016-05-19 Outpatient [facility] 9mk7f6s4-3x 6w0de8r9-0 Access 00:00:00 00:00:00 H, PROVIDER e2-8ed1-39h tonya-4c 95-a ealth 0-gy1cxw611 u7x-y7qg8z 0f4 0e2daa 2016-05-19 2016-05-19 Outpatient TIMA, [facility] 2sq7z8a9-9b fc5 5u37q-5 [facility] 00:00:00 00:00:00 OSMAN e2-0rf5-09v ad3-40d5-b ealth 0-mu8kof915 bc9-a48b2d 0f4 56g949 2016-05-19 2016-05-19 Outpatient CONTRERAS, [facility] 6cc9s2b5-2w 8 gi928t3-8 [facility] 00:00:00 00:00:00 MIRTA e2-6va1-55l 9u5-0281-f ealt 0-tv6pwa532 x20-y9a032 0f4 39beb0 2016-05-15 2016-05-15 Outpatient [facility] [id number] [facility] 00:00:00 00:00:00 H, PROVIDER ea lth 2016-05-15 2016-05-15 Outpatient [facility] 3wx5i9g0-8t m58bs24w-q [facility] 00:00:00 00:00:00 H, PROVIDER e2-7yf7-79r bbe-4f 60-b ealt 0-kp1nyo337 941-41ae95 0f4 qn3683 2016-05-15 2016-05-15 Outpatient CONTRERAS, [facility] 47j5788s-89 f m7e9x36-7 [facility] 00:00:00 00:00:00 MIRTA 45-3c4n-q0z 3o1-4110-4 ealth d-z3o169996 311-c0s598 354 835fae 2016-05-15 2016-05-15 Outpatient OMORI, [facility] 11d7629q-13 2b7 19z01-1 [facility] 00:00:00 00:00:00 NAIF 45-7i4r-j1n 373-4ac8- b ealth d-q2i717855 6m5-s944kk 354 tg3272 2016-05-15 2016-05-15 Outpatient MENDIETA, [facility] 53p5636y-02 d3 8merq3-1 [facility] 00:00:00 00:00:00 CHRISTINA 45-9x7q-e5w p59-6177- a ealth d-w6k123994 [facility]-83668d 354 59y493 2016-05-15 2016-05-15 Outpatient IRIZARRY, [facility] 39u6701m-19 e10 e7374-1 [facility] 00:00:00 00:00:00 KATELINE 45-4b2o-b8p a2g-3v3s- a ealth d-m4u006998 358-d132b6 354 e444e3 2016-05-11 2016-05-11 Outpatient [facility] 107 [id number] [facility] 00:00:00 00:00:00 H, PROVIDER [facility] 2016-05-11 2016-05-11 Outpatient [facility] 0ov4z0q3-5w 5q004o1f-4 [facility] 00:00:00 00:00:00 H, PROVIDER e2-2ti6-88c 986-4e 16-9 ealt 0-ka5wia678 6g2-72v066 0f4 763571 6662-02-13 2016-05-11 Outpatient FOREIGN, [facility] 76k1666w-46 25nc52h7-2 [facility] 00:00:00 00:00:00 FRANKLIN 45-1p4u-s5n ee0-4498-a ealth d-y1a580049 cb7-627bcc 354 62c67e 2016-05-11 2016-05-11 Outpatient DIANE, [facility] 49d0847s-87 f 6rs9xii-u [facility] 00:00:00 00:00:00 MIRTA 45-7j6o-u5t 36e-4988-b e[facility]224[facility] 727e3d 2016-05-08 2016-05-08 Outpatient [facility] 107 [id number] [facility] 00:00:00 00:00:00 H, PROVIDER [facility] 2016-05-08 2016-05-08 Outpatient [facility] 5cz7y0e2-9b 1672u84w-5 [facility] 00:00:00 00:00:00 H, PROVIDER e2-0do9-44j e1f-48 2e-8 ealth 0-zq5kji763 2db-txy648 0f4 bc16c2 2016-05-08 2016-05-08 Outpatient SHELBY, [facility] 6hr0t0p2-7m 18c a1619-u [facility] 00:00:00 00:00:00 SAMANTHA e2-9ty3-65t 27d-42df- a ealth 0-qx4vly925 bb7-72980v 0f4 02q577 2016-05-08 2016-05-08 Outpatient CONTRERAS, [facility] 8of7t5j5-2o 3 w078z3z-3 [facility] 00:00:00 00:00:00 MIRTA e2-2ef0-29s 353-45e9-a ealth 0-ip6bba597 be5-y37936 0f4 8412be 2016-05-05 2016-05-05 Outpatient SHELBY, [facility] 5ai5e8v7-1a 773 f3k8b-7 [facility] 00:00:00 00:00:00 SAMANTHA e2-6pq3-72y 09b-4a43- a ealth 0-xm9flt572 83f-02ffd4 0f4 8eed89 2016-05-04 2016-05-04 Outpatient [facility] [id number] Access 00:00:00 00:00:00 H, PROVIDER [facility] 2016-05-04 2016-05-04 Outpatient [facility] 5rj2w1g3-7w 08lkpbx6-3 [facility] 00:00:00 00:00:00 H, PROVIDER e2-3rf8-14o 964-4e b0-8 ealth 0-if4tmy892 fd5-e283fd 0f4 1cba2b 2016-05-04 2016-05-04 Outpatient SHELBY, [facility] 3mh1t6j3-2r c7e 5k506-4 [facility] 00:00:00 00:00:00 SAMANTHA e2-9du9-73b 677-4bd7- b ealth 0-or2gei395 14f-f6fe70 0f4 23639d 2016-05-04 2016-05-04 Outpatient CONTRERAS, [facility] 2dr0z4u5-8s d l60014o-c [facility] 00:00:00 00:00:00 MIRTA e2-7kz8-17a 294-4fb9-a ealth 0-wf4snf479 51f-f628b0 0f4 o9033p 2016-04-27 2016-04-27 Outpatient [facility] [id number] Access 00:00:00 00:00:00 H, PROVIDER [facility] 2016-04-27 2016-04-27 Outpatient [facility] 6wq7q1v2-0x i801xi86-6 [facility] 00:00:00 00:00:00 H, PROVIDER e2-1ip8-56a 0c7-4f f1-8 ealth 0-ve9sao077 de9-3790eb 0f4 4239d8 2016-04-27 2016-04-27 Outpatient DIANE, [facility] 8mg6v4z1-7n 3 1vdw479-8 [facility] 00:00:00 00:00:00 MIRTA e2-4vn8-18p 6m1-7e36-j ealth 0-ir3qbf126 7k6-t25525 0f4 8p321x 2016-04-27 2016-04-27 Outpatient DESTINY, [facility] 9qi9e8c4-1x edf 9q0e6-g [facility] 00:00:00 00:00:00 MELVA e2-3wq7-46p 4fb-4099-9 ealth 0-bg0bcy066 ca8-42b5cf 0f4 047ded 2016-04-24 2016-04-24 Outpatient [facility] [id number] [facility] 00:00:00 00:00:00 H, PROVIDER ea lth 2016-04-24 2016-04-24 Outpatient [facility] 0vd5h4r0-9c ma3vrk7y-n [facility] 00:00:00 00:00:00 H, PROVIDER e2-1gw1-11u 5aa-41 ee-8 ealth 0-tq5dyd212 c-t96909 0f4 j1130r 2016-04-24 2016-04-24 Outpatient FOREIGN, [facility] 07k5354r-39 q27yw356-7 [facility] 00:00:00 00:00:00 FRANKLIN 45-5g0g-s2u 5k2-2v78-0 ealth d-u4b569985 fee-0ku409 354 f7e46e 2016-04-24 2016-04-24 Outpatient ISAURA, [facility] 24j6925c-64 47 4q01l6-4 [facility] 00:00:00 00:00:00 CHRISTINA 45-2d4s-v6l 287-4cce- 9 ealth d-h4e312742 7a0-790j75 354 0c8ebc 2016-04-24 2016-04-24 Outpatient SHELBY, [facility] 7pe0e3t8-4b 978 0j211-p [facility] 00:00:00 00:00:00 SAMANTHA e2-6wi4-04w 3ec-4aa4- 8 ealth 0-pd7rwa643 c21-65fod6 0f4 cfdb01 2016-04-24 2016-04-24 Outpatient DIANE, [facility] 1hh3z5v1-0q 3 l8ig0v1-2 [facility] 00:00:00 00:00:00 MIRTA e2-4nn0-31k 39f-490c-b ealth 0-gm3dwf703 8ce-a94b3d 0f4 611fdf 2016-04-24 2016-04-24 Outpatient DIANE, [facility] 78t0195e-76 2 7998664-i [facility] 00:00:00 00:00:00 MIRTA 45-9z4y-z5y 86a-4439-a ealth d-h7p121562 d5c-51d9bv 354 218d45 2016-04-24 2016-04-24 Outpatient IRIZARRY, [facility] 69q2375h-57 fc7 8687c-4 [facility] 00:00:00 00:00:00 KATELINE 45-0j7t-f0g y7m-2w44- a ealth d-g0y297997 g6s-4yd037 354 9f3b30 2016-04-24 2016-04-24 Outpatient OMORI, [facility] 45i3840m-80 d38 b5o27-0 [facility] 00:00:00 00:00:00 NAIF 45-5o7j-j9f 768-4bfb- b ealth d-r7l185197 b9k-90q6o8 354 4dd6fd 2016-04-23 2016-04-23 Outpatient [facility] 107 [id number] Access 00:00:00 00:00:00 H, PROVIDER [facility] 2016-04-23 2016-04-23 Outpatient [facility] 6tn5o8k5-9z z7jd8b99-c [facility] 00:00:00 00:00:00 H, PROVIDER e2-4hl9-06r be8-4b 21-9 ealt 0-lw2qix552 3dc-5f1e84 0f4 22d77d 2016-04-23 2016-04-23 Outpatient DIANE, [facility] 22k0835f-77 6 w28x10t-d [facility] 00:00:00 00:00:00 MIRTA 45-0c8o-y8s 994-45ef-b ealt d-y2d729083 3m7-e9755v 354 51ffb4 2016-04-23 2016-04-23 Outpatient FOREIGN, [facility] 84o6531p-26 37c008sr-h [facility] 00:00:00 00:00:00 FRANKLIN 45-6p5h-p2o eaf-4e51-9 ealt d-t6y144787 3g4-b0w979 354 7999a2 2016-04-20 2016-04-20 Outpatient [facility] 107 [id number] [facility] 00:00:00 00:00:00 H, PROVIDER ea lth 2016-04-20 2016-04-20 Outpatient [facility] 7ow4x9r0-6d 3921461n-0 [facility] 00:00:00 00:00:00 H, PROVIDER e2-3bk8-40f a9b-45 15-9 ealt 0-wq7jqq863 4p6-502331 0f4 842264 5444-01-23 2016-04-20 Outpatient DESTINY, [facility] 3ki7x1x5-6u 407 67z3z-o [facility] 00:00:00 00:00:00 MELVA e2-5me9-55m 067-4720-a ealth 0-iz1epf010 679-47bd8d 0f4 636a60 2016-04-20 2016-04-20 Outpatient DIANE, [facility] 6lr9r7r3-0e 2 42ivh0z-r [facility] 00:00:00 00:00:00 MIRTA e2-1yq9-77t 373-4fb8-8 ealth 0-sr2tmx379 7v0-sm2714 0f4 3b9fb0 2016-04-17 2016-04-17 Outpatient [facility] [id number] [facility] 00:00:00 00:00:00 H, PROVIDER [facility] 2016-04-17 2016-04-17 Outpatient [facility] 3mt5c9j5-1z 4k241p0q-d [facility] 00:00:00 00:00:00 H, PROVIDER e2-4ok1-99o 7cd-42 99-a [facility] 0-qn7uzh727 r12-i3v8y8 0f4 685c34 2016-04-07 2016-04-07 Outpatient [facility] [id number] [facility] 00:00:00 00:00:00 H, PROVIDER [facility] 2016-04-07 2016-04-07 Outpatient [facility] 1rm9c3x6-8n 77y7aix4-q [facility] 00:00:00 00:00:00 H, PROVIDER e2-5vb4-25o f6e-4e 34-8 [facility] 0-sb1wpz129 026-e65fd2 0f4 3f7d68 2016-04-07 2016-04-07 Outpatient TIMA, [facility] zyv352zt-2n 561 c3j39-j [facility] 00:00:00 00:00:00 OSMAN 22-4926-a4f i8k-3kq6-q ealth f-55066569p 89b-711bf4 alexander ji346x 2016-04-07 2016-04-07 Outpatient TIMA, [facility] 2hp0u4s7-1c 515 ffab0-4 [facility] 00:00:00 00:00:00 OSMAN e2-6ys4-37p 605-4ff2-a [facility] 0-zr4yrz293 18f-28a087 0f4 130b3b 2016-04-07 2016-04-07 Outpatient CONTRERAS, [facility] nrx107jm-1n 8 4033n64-n [facility] 00:00:00 00:00:00 MIRTA 22-4926-a4f 57e-49df-a ealth f-12251499t 23e-006f72 alexander 2y897g 2016-04-06 2016-04-06 Outpatient [facility] [id number] [facility] 00:00:00 00:00:00 H, PROVIDER [facility] 2016-04-06 2016-04-06 Outpatient [facility] 5ga5e7w8-9w 4453k488-x [facility] 00:00:00 00:00:00 H, PROVIDER e2-3qm1-07h 933-4f 57-9 ealth 0-ce6mhj607 cdf-f04f62 0f4 01t212 2016-04-06 2016-04-06 Outpatient TIMA, [facility] 8ip0e9v1-0d c72 e74u3-8 [facility] 00:00:00 00:00:00 OSMAN e2-7fe6-34a x1i-7k40-d ealth 0-fy4bpl999 x14-92150v 0f4 ad40b7 2016-04-06 2016-04-06 Outpatient CONTRERAS, [facility] 1hu1e4l0-0u 3 zq339o4-i [facility] 00:00:00 00:00:00 MIRTA e2-7tm0-74x eb2-4dd6-b ealth 0-uf5ahh990 9fd-dc32d8 0f4 83b481 2016-03-26 2016-03-26 Outpatient [facility] [id number] [facility] 00:00:00 00:00:00 H, PROVIDER [facility] 2016-03-26 2016-03-26 Outpatient [facility] 2zt2n0v2-4j 6n78h7h7-m [facility] 00:00:00 00:00:00 H, PROVIDER e2-5fs2-72w f3d-41 a6-a ealth 0-vu3cms348 ba9-6872c4 0f4 187702 6679-12-29 2016-03-26 Outpatient OMORI, [facility] mhn246ux-0e 8bc 3fzt0-9 [facility] 00:00:00 00:00:00 NAIF 22-4926-a4f 598-4848- a ealth f-59025619s 098-293a08 alexander vu743u 2016-03-26 2016-03-26 Outpatient CONTRERAS, [facility] fsl426eq-5x 1 gm52k8k-5 [facility] 00:00:00 00:00:00 MIRTA 22-4926-a4f 6ee-4ff7-b ealth f-78536703m 583-72eac5 alexander 326a7e 2016-03-26 2016-03-26 Outpatient IRIZARRY, [facility] pnn553ib-5a 576 7h3oi-7 [facility] 00:00:00 00:00:00 SUKUMAR 22-4926-a4f 6z5-3y01- 8 ealt f-80273879b 9cc-1t3409 alexander 0b4fc0 2016-03-25 2016-03-25 Outpatient [facility] [id number] [facility] 00:00:00 00:00:00 H, PROVIDER [facility] 2016-03-25 2016-03-25 Outpatient [facility] 7vm5w0e9-8k 05e32h52-m [facility] 00:00:00 00:00:00 H, PROVIDER e2-2je6-42u dd6-45 84-8 [facility] 0-gk4ecz787 2z6-k77ixd 0f4 at867e 2016-03-25 2016-03-25 Outpatient TIMA, [facility] cyt047tt-7h 560 29m34-7 [facility] 00:00:00 00:00:00 OSMAN 22-4926-a4f 065-44df-b ealt f-11817590e 819-2699d1 alexander 8f5a2f 2016-03-25 2016-03-25 Outpatient CONTRERAS, [facility] lal474bo-7g 9 02sw2v9-d [facility] 00:00:00 00:00:00 MIRTA 22-4926-a4f m88-2l5p-0 ealt f-83834919h 48f-8ad8b4 alexander b50eed 2016-03-06 2016-03-06 Outpatient [facility] [id number] [facility] 00:00:00 00:00:00 H, PROVIDER casey lala 2016-03-06 2016-03-06 Outpatient [facility] 3tt7g4u4-8t 5l5r57o8-4 [facility] 00:00:00 00:00:00 H, PROVIDER e2-8cc9-18w f9e-49 00-9 [facility] 0-mu5hjf803 84c-9i5345 0f4 31o882 2016-03-06 2016-03-06 Outpatient MENDIETA, [facility] poa306yn-6n da 80fadd-2 [facility] 00:00:00 00:00:00 CHRISTINA 22-4926-a4f 5j9-7r6z- a ealt f-39912202i s90-359r77 alexander 4c9b58 2016-03-06 2016-03-06 Outpatient CONTRERAS, [facility] hwi893yc-3i 3 4k4fqsj-q [facility] 00:00:00 00:00:00 MIRTA 22-4926-a4f 95d-4894-8 ealth f-41855819v 41e-08a2d9 alexander 2085f3 2016-03-03 2016-03-03 Outpatient TIMA, [facility] sqx430oz-9q 11d k8399-3 [facility] 00:00:00 00:00:00 OSMAN 22-4926-a4f 1fb-4f0a-a ealt f-[id number] 780-46t206 alexander 2abc72 2016-02-28 2016-02-28 Outpatient [facility] [id number] [facility] 00:00:00 00:00:00 H, PROVIDER casey lt 2016-02-28 2016-02-28 Outpatient [facility] 6iy7t6m6-5c [id number] [facility] 00:00:00 00:00:00 H, PROVIDER e2-7qy8-55h 122-40 d1-[facility] 0-my7lgw431 cd8-8e0dd4 0f4 c9ee35 2016-02-28 2016-02-28 Outpatient [facility] azr109bb-8f 3 [id number]-2 [facility] 00:00:00 00:00:00 MIRTA 22-4926-a4f af1-4c49-8 ealth f-[id number] 251-7271d4 alexander 5a4e2f 2016-02-28 2016-02-28 Outpatient TIMA, [facility] efu189aw-8k 30e 7mit1-0 [facility] 00:00:00 00:00:00 OSMAN 22-4926-a4f ca3-4e7f-9 ealt f-[id number] 2e3-g244e0 alexander 5fb9b9 2016-02-25 2016-02-25 Outpatient ZAGALA, [facility] 4tg0w4d7-6f 882 y0up6-l [facility] 00:00:00 00:00:00 MELVA e2-7ma7-12a 9m5-1qh8-8 ealt 0-mk5sma481 [id number]-n22448 0f4 be84b6 2016-02-24 2016-02-24 Outpatient [facility], [facility] 0wp9x9k0-8m 970 6112d-8 [facility] 00:00:00 00:00:00 MELVA e2-9vp6-24v 522-4d0a-8 ealt 0-uq4gxe245 3ed-40eaf8 0f4 0f12d2 2016-02-18 2016-02-18 Outpatient [facility] [id number] [facility] 00:00:00 00:00:00 H, PROVIDER ea lth 2016-02-18 2016-02-18 Outpatient [facility] 2ri0q2a9-3u d6ev47ln-2 [facility] 00:00:00 00:00:00 H, PROVIDER e2-6hb0-90s 82f-43 1a-b ealt 0-te3fph166 z0p-84083w 0f4 5abef2 2016-02-18 2016-02-18 Outpatient [facility]AGAL[facility], [facility] 0cj0k8b4-9i 2fa 74l05-8 [facility] 00:00:00 00:00:00 MELVA e2-0zl6-59m q3k-7l1z-q ealt 0-yc0woe969 279-b1d14b 0f4 e2f42d 2016-02-18 2016-02-18 Outpatient [facility] 9vj0l4y6-8l 8 9i35w95-2 [facility] 00:00:00 00:00:00 MIRTA e2-7np4-15l 1n2-1885-x ealth 0-gi3qji940 alexander-e606c4 0f4 149c44 2016-02-10 2016-02-10 Outpatient TIMA, [facility] 0px4c0g8-0v 0be 9lsc3-g [facility] 00:00:00 00:00:00 OSMAN e2-7mb5-56v 0eb-4eb1-a ealt 0-eh5pbj817 54f-136029 0f4 64ba33 2016-02-06 2016-02-06 Outpatient ALAM, [facility] [id number] [address] [place] [address] 10:32:12 15:36:05 NAIMA Rowanin antonio 2016-01-30 2016-01-30 Outpatient TIMA, [facility] hds412st-4s 003 18m46-7 [facility] 00:00:00 00:00:00 OSMAN 22-4926-a4f h81-6r34-k ealt f-[id number] 30e-776d1f alexander b29d1e 2016-01-28 2016-01-28 Outpatient [facility] [id number] [facility] 00:00:00 00:00:00 H, PROVIDER ea lth 2016-01-28 2016-01-28 Outpatient [facility] 2go1m0u1-4j 83j77r60-3 [facility] 00:00:00 00:00:00 H, PROVIDER e2-4td0-70j d0d-4c 90-b ealth 0-pz9tcm396 cac-1il985 0f4 21fba1 2016-01-28 2016-01-28 Outpatient ZAGALA, [facility] 9kw2p3o9-6x 2ec i48or-9 [facility] 00:00:00 00:00:00 MELVA e2-5zq0-24m s49-9su3-5 ealth 0-jw0keq046 0n5-x081lq 0f4 5909cc 2016-01-28 2016-01-28 Outpatient TIMA, [facility] 0un6t3r6-9s af0 3d4b0-j [facility] 00:00:00 00:00:00 OSMAN e2-0fd6-89d 855-4c09-9 ealt 0-nz7pds501 6x8-dp4e48 0f4 dd65fd 2016-01-28 2016-01-28 Outpatient [facility] 9pt7z7e7-1k 2 gr91240-5 [facility] 00:00:00 00:00:00 MIRTA e2-1ds6-27b 8q3-4y22-4 ealt 0-ab2flj031 c63-s00g45 0f4 226cf1 2016-01-27 2016-01-27 Outpatient [facility] [id number] [facility] 00:00:00 00:00:00 H, PROVIDER casey [facility] 2016-01-27 2016-01-27 Outpatient [facility] 9wg6s6n7-6w 737h8ne7-8 [facility] 00:00:00 00:00:00 H, PROVIDER gabby-4wm2-89y 6ce-4b 28-b ealt 0-mi0xzi775 9y1-48p947 0f4 311f8d 2016-01-27 2016-01-27 Outpatient TIMA, [facility] mti676ul-0j 169 x1x87-t [facility] 00:00:00 00:00:00 OSMAN 22-4926-a4f c09-21ny-x ealt f-[id number]-460325 alexander 311d01 2016-01-21 2016-01-21 Outpatient [facility] [id number] Access 00:00:00 00:00:00 H, PROVIDER casey lala 2016-01-21 2016-01-21 Outpatient [facility] 0uu5h7n9-9t [id number] [facility] 00:00:00 00:00:00 H, PROVIDER e2-3tu6-19g be4-45 98-a ealth 0-qg1rrg920 79f-33e35e 0f4 b6a3ba 2016-01-21 2016-01-21 Outpatient HERNAEZ, [facility] xcm803va-3l b0 dju465-l [facility] 00:00:00 00:00:00 MAEVE 22Ry4926-a4f 971-46ae-b ealt f-00977838e 5db-ceb82a alexander 06ca45 2016-01-21 2016-01-21 Outpatient OMORI, [facility] vjw747uy-2c c83 h98f1-o [facility] 00:00:00 00:00:00 NAIF Bravo4926-a4f 6w8-2a6e- b ealt f-[id number] 44d-88f26d alexander q1q760 2015-10-02 2015-10-02 Outpatient OMORI, [facility] nwd286ty-9o c00 513aa-5 [facility] 00:00:00 00:00:00 NAIF Bravo4926-a4f 809-4330- b [facility] f-82578782p 3b4-ciy365 alexander 9ebe0b 2015-10-01 2015-10-01 Outpatient [facility] [id number] [facility] 00:00:00 00:00:00 H, PROVIDER casey molina 2015-10-01 2015-10-01 Outpatient [facility] 9iz3l1j6-2h [id number] [facility] 00:00:00 00:00:00 H, PROVIDER e2-8vg2-70p ed0-46 e6-9 [facility] 0-ph6zkp684 57e-4efa05 0f4 aaq038 2015-10-01 2015-10-01 Outpatient ZOE, [facility] iey424il-8i 83d zc5y2-y [facility] 00:00:00 00:00:00 NAIF Barvo4926-a4f 7g3-25a8- 9 [facility] f-[id number] l63-jp0392 laexander il121l 2015-10-01 2015-10-01 Outpatient CONTRERAS, [facility] bqs396fm-0n 4 wevz57r-1 [facility] 00:00:00 00:00:00 MIRTA Shelly4926-a4f 2i7-3cw5-m ealt f-33541258j c68-9p29g3 alexander c704de 2015-09-26 2015-09-26 Outpatient [facility] [id number] [facility] 00:00:00 00:00:00 H, PROVIDER casey lalah 2015-09-26 2015-09-26 Outpatient [facility] 5ra0r8g2-1e [id number] [facility] 00:00:00 00:00:00 H, PROVIDER gabby-4fm4-15p 8ad-4b 20-9 [facility] 0-co5otg168 1y4-r50i1h 0f4 1f3c6d 2015-09-26 2015-09-26 Outpatient [facility] [id number]-4u 6 9m2w4ey-3 [facility] 00:00:00 00:00:00 MIRTA 22-4926-a4f 121-4c1d-b [facility] f-[id number] p7r-6l6k88 alexander [id number] 2015-09-26 2015-09-26 Outpatient OMORI, [facility] rbh171mi-9p b24 2m650-5 [facility] 00:00:00 00:00:00 NAIF 22-4926-a4f 457-48de- a [facility] f-[id number] e36-p19o4x alexander 8t577a 2015-09-12 2015-09-12 Outpatient [facility] [id number] Access 00:00:00 00:00:00 H, PROVIDER casey [facility] 2015-09-12 2015-09-12 Outpatient [facility] 3le7c9g9-3s [id number]-1 Access 00:00:00 00:00:00 H, PROVIDER gabby-9kz1-48b 126-41 a3-b [facility] 0-cf9vfe843 [id number] 0f4 48d9d2 2015-08-21 2015-08-21 Outpatient [facility] [id number] Access 00:00:00 00:00:00 H, PROVIDER casey [facility] 2015-08-21 2015-08-21 Outpatient [facility] 8nw0q9a4-7p [id number]-b [facility] 00:00:00 00:00:00 H, PROVIDER april4zq9-37o f2e-44 8f-b [facility] 0-cw1ffe034 v0u-01329n 0f4 e6de39 2015-05-22 2015-05-22 Outpatient [facility] [id number] [facility] 00:00:00 00:00:00 H, PROVIDER casey [facility] 2015-05-22 2015-05-22 Outpatient [facility] [id number] [facility] 00:00:00 00:00:00 H, PROVIDER e2-7yt9-16b 2c0-43 14-b ealt 0-hx3wdn381 [id number] 0f4 [id number] 2015-05-21 2015-05-21 Outpatient [facility] [id number] Access[facility] 00:00:00 00:00:00 H, PROVIDER casey [facility] 2015-05-21 2015-05-21 Outpatient [facility] [id number] [facility] 00:00:00 00:00:00 H, PROVIDER e2-2vw7-42s 9f9-45 a3-8 ealth 0-[id number] [id number] 0f4 [id number] 2015-05-03 2015-05-03 Outpatient JONAS, [facility] [id number] [facility] 15:36:00 15:36:00 MAEVE e2-8ls6-50m x6s-9cb1-p ealt 0-fp7lfj315 [id number] 0f4 [id number] 2959-02-05 2015-05-03 Outpatient [facility] [id number] [facility] 00:00:00 00:00:00 H, PROVIDER casey lala 2015-05-03 2015-05-03 Outpatient [facility] [id number] [facility] 00:00:00 00:00:00 H, PROVIDER e2-6tg0-85g da3-40 14-8 ealth 0-ws1lku406 [id number] 0f4 [id number] 2015-05-03 2015-05-03 Outpatient DIANE, [facility] [id number] [facility] 00:00:00 00:00:00 MIRTA e2-9jc9-45x v01-05o6-7 [facility] 0-hd9ail841 [id number] 0f4 [id number] 2015-03-20 2015-03-20 Outpatient [facility] [id number] Access[facility] 00:00:00 00:00:00 H, PROVIDER casey lala 2015-03-20 2015-03-20 Outpatient [facility] [id number] Access 00:00:00 00:00:00 H, PROVIDER april3ld9-68b da0-41 96-8 [facility] 0-al2xht622 [id number]-[id number] 0f4 [id number] 2015-03-15 2015-03-15 Outpatient [facility] [id number] Access 00:00:00 00:00:00 H, PROVIDER casey lala 2015-03-15 2015-03-15 Outpatient [facility] [id number] Access 00:00:00 00:00:00 H, PROVIDER april4gh2-20s 7a2-4a a9-b [facility] 0-kd7cch400 [id number] 0f4 [id number] 2015-03-06 2015-03-06 Outpatient [facility] [id number] Access 00:00:00 00:00:00 H, PROVIDER casey lala 2015-03-06 2015-03-06 Outpatient [facility] [id number] Access 00:00:00 00:00:00 H, PROVIDER april7id1-31k fdb-4d 58-a [facility] 0-ur1byu256 [id number] 0f4 [id number] 2015-02-19 2015-02-19 Outpatient [facility] [id number] Access 00:00:00 00:00:00 H, PROVIDER casey lala 2015-02-19 2015-02-19 Outpatient [facility] [id number] [facility] 00:00:00 00:00:00 H, PROVIDER april7nl5-27q 127-4b 58-a [facility] 0-ga1ago016 [id number]-[id number] 0f4 [id number] 2015-02-18 2015-02-18 Outpatient [facility] [id number] Access 00:00:00 00:00:00 H, PROVIDER casey lala 2015-02-18 2015-02-18 Outpatient [facility] [id number] Access[facility] 00:00:00 00:00:00 H, PROVIDER april4jp5-20f d47-48 5c-8 [facility] 0-sp0zwx276 5cb-5cface 0f4 [id number] 2015-02-12 2015-02-12 Outpatient [facility] [id number] Access 00:00:00 00:00:00 H, PROVIDER casey lala 2015-02-12 2015-02-12 Outpatient [facility] [id number] Access 00:00:00 00:00:00 H, PROVIDER april6oi3-98z 279-4f 28-b [facility] 0-vc9mgw767 [id number] 0f4 [id number] 2015-02-11 2015-02-11 Outpatient [facility] [id number] Access 00:00:00 00:00:00 H, PROVIDER casey lala 2015-02-11 2015-02-11 Outpatient [facility] [id number] Access 00:00:00 00:00:00 H, PROVIDER april3xz3-64a 925-41 78-b [facility] 0-ic0yhc041 [id number] 0f4 [id number] 2015-02-06 2015-02-06 Outpatient [facility] [id number] Access 00:00:00 00:00:00 H, PROVIDER casey lala 2015-02-06 2015-02-06 Outpatient [facility] [id number] Access[facility] 00:00:00 00:00:00 H, PROVIDER april7mj3-29f 2a8-49 15-a [facility] 0-kh0psz904 [id number] 0f4 [id number] 2015-01-24 2015-01-24 Outpatient [facility] [id number] Access 00:00:00 00:00:00 H, PROVIDER casey lala 2015-01-24 2015-01-24 Outpatient [facility] [id number] Access[facility] 00:00:00 00:00:00 H, PROVIDER april3wx7-28k f80-44 d8-a [facility] 0-xp8edf426 [id number] 0f4 [id number] 2015-01-08 2015-01-08 Outpatient [facility] [id number] Access 00:00:00 00:00:00 H, PROVIDER casey lala 2015-01-08 2015-01-08 Outpatient [facility] [id number] Access[facility] 00:00:00 00:00:00 H, PROVIDER gabby-2xi9-71h 64f-4c a3-9 [facility] 0-xz5kgo403 [id number] 0f4 [id number] 2015-01-01 2015-01-01 Outpatient [facility] [id number] Access 00:00:00 00:00:00 H, PROVIDER casey molina 2015-01-01 2015-01-01 Outpatient [facility] [id number] Access[facility] 00:00:00 00:00:00 H, PROVIDER gabby-7ep6-07q 53f-43 97-b [facility] 0-jl6xdo507 [id number] 0f4 [id number] 2014-12-27 2014-12-27 Outpatient [facility] [id number] Access 00:00:00 00:00:00 H, PROVIDER casey lala 2014-12-27 2014-12-27 Outpatient [facility] [id number] Access[facility] 00:00:00 00:00:00 H, PROVIDER gabby-4sv4-62q ca7-44 22-9 [facility] 0-ck2imt877 [id number] 0f4 [id number] 2014-12-07 2014-12-07 Outpatient [facility] [id number] Access[facility] 00:00:00 00:00:00 H, PROVIDER casey lala 2014-12-07 2014-12-07 Outpatient [facility] [id number] Access[facility] 00:00:00 00:00:00 H, PROVIDER april5gy6-97h c82-4a dd-a [facility] 0-jd9pxn766 6ab-de3ca6 0f4 [id number] 2014-05-08 2014-05-08 Outpatient [facility] [id number] Access[facility] 00:00:00 00:00:00 H, PROVIDER casey lala 2014-05-08 2014-05-08 Outpatient [facility] [id number] Access[facility] 00:00:00 00:00:00 H, PROVIDER gabby-1ht7-66x e34-45 36-8 [facility] 0-vs4xnl717 [id number] 0f4 [id number] 2014-04-26 2014-04-26 Outpatient [facility] [id number] Access[facility] 00:00:00 00:00:00 H, PROVIDER casey lala 2014-04-26 2014-04-26 Outpatient [facility] [id number] [facility] 00:00:00 00:00:00 H, PROVIDER gabby-4ib6-82v ed4-4c e6-b [facility] 0-qo0gea032 ef8-5a22de 0f4 4fecab 2014-04-25 2014-04-25 Outpatient [facility] [id number] Access[facility] 00:00:00 00:00:00 H, PROVIDER casey lala 2014-04-25 2014-04-25 Outpatient [facility] [id number] [id number] Access[facility] 00:00:00 00:00:00 H, PROVIDER april1cf4-42h 477-46 7f-9 ealt 0-uh9lxc750 [id number]-[id number] 0f4 [id number] 2014-04-09 2014-04-09 Outpatient [facility] [id number] Access[facility] 00:00:00 00:00:00 H, PROVIDER case[facility] 2014-04-09 2014-04-09 Outpatient [facility] [id number] [facility] 00:00:00 00:00:00 H, PROVIDER e2-8ol0-97d 783-44 d2-9 [facility] 0-ay8szq971 [id number] 0f4 [id number] 2014-03-12 2014-03-12 Outpatient [facility] [id number] Access[facility] 00:00:00 00:00:00 H, PROVIDER case[facility] 2014-03-12 2014-03-12 [facility] [id number] Access[facility] 00:00:00 00:00:00 H, PROVIDER e2-4pq7-76e d5c-45 e4-8 [facility] 0-dg8zje661 [id number] 0f4 [id number] Results Test Description Test Time Test Comments Results Result Comments Source HEPATITIS C PCR, QUANTITATIVE 2021-10-10 11:14:07 Test Item Value Reference Range Interpretation Comme nts HCV RESULT COMPONENT (RAADMARTY) (test HCV RNA not detected HCV RNA no t detected code = 2699) This test uses a Real-Time Polymerase Chain Reaction (RT-PCR) methodology and was performed using JENNIFER Ampliprep/JENNIFER TaqMan HCV test kit version 2.0 ([employer]).Reportable range for this assay is 15 - 100,000,000 IU per mL (1.18 - 8.00 Log IU/mL).HEPATITIS B SURFACE [id number] 10:30:00 Test Item Value Reference Range Interpretation Comments HEPATITIS B SURFACE ANTIBODY < mIU/mL <8.0 (CECILIO) (test code = 647) Business Banker ID - BSHEPATITIS B CORE ANTIBODY, [id number] 10:17:34 Test Item Value Reference Range Interpretation Comments HEPATITIS B CORE TOTAL ANTIBODY Nonreactive Nonreactive (CECILIO) (test code = 497) Business Banker ID - BSHEPATITIS B SURFACE [id number] 10:17:33 Test Item Value Reference Range Interpretation Comments HEPATITIS B SURFACE ANTIGEN (2) Nonreactive Nonreactive (BEAKER) (test code = 2585) Specimen is considered negative for HBsAg.URIC [id number] 08:39:28 Test Item Value Reference Range Interpretation Comments URIC ACID (test 10.3 MG/DL 3.7-8.0 H UNLESS OTHE RWISE code = 2233) INDICATED, ALL TESTING PERFORMED ATCLI NICAL PATHOLOGY [facility] [employer]. [address], [place] [id number] [place] [address] DIRECTOR: HANNAH MCKNIGHT M.D. [place] NUMBER [id number] [facility] ACCREDITATION N O. [id number] COMPREHENSIVE METABOLIC [id number] 08:39:28 Test Item Value Reference Range Interpretation Comments GLUCOSE (test code = 84 MG/DL 70-99 2216) BUN (test code = 44 MG/DL 6-20 H 2207) CREATININE (test 2.77 MG/DL 0.80-1.40 H code = 2214) eGFR (2020 CKD-EPI) 28 ML/MIN/1.73 >60 L (test code = 20182) CALC BUN/CREAT (test 16 RATIO 6-28 code = 2235) SODIUM (test code = 139 MEQ/L 586-821 8247) POTASSIUM (test code 5.1 MEQ/L 3.5-5.4 = 2227) CHLORIDE (test code 103 MEQ/L 95-107 = [...] PHOSPHATASE 117 U/L 40-118 (test code = 2204) AST (test code = 17 U/L 50 2217) ALT (test code = 17 U/L 50 2218) HEMOGLOBIN [id number] 07:11:42 Test Item Value Reference Range Interpretation Comments HEMOGLOBIN A1c (test 7.9 % 4.2-5.6 H AMERIC AN DIABETES code = 66339) ASSOCIATION IDELINES FOR HGB A1C: PREDIABETES/INC REASED RISK . . . . . . . 5.7 -6.4% DIAGNOSIS OF DI ABETES . . . . . . . . . >=6 .5% WITH CONFIRMATION OR APPROPRIATE SYMPTOMS NOTE: ASSAY MAY BE AFFECTED BY HEMOGLOBINOPATH IES (SICKLE CELL ANEMIA, S- C DISEASE, OTHERS) OR KIRAN FICIALLY LOWERED BY DECR EASED RED CELL SURVIVAL ( HEMOLYTIC ANEMIAS, BLOOD LOSS, ETC.). CONSIDER ALTERN ATE TESTING OR LABORATORY C ONSULTATION. TSH, THIRD [id number] 09:21:17 Test Item Value Reference Range Interpretation Comments TSH, THIRD GENERATION (test code 2.780 UIU/ML 0.400-4.100 = 2821) VITAMIN D, 25 [id number] 06:54:58 Test Item Value Reference Range Interpretation Comments VITAMIN D, 25 OH 30 NG/ML SEE BELOW NOTE: 25-H YDROXYVITAMIN D (test code = 4958) ASSAY INC LUDES 25-HYDROXYVITAM IN D2 AND D3. METHODOLOGY IS CHEMILUMINESCEN T IMMUNOASSAY. INTERPRETIVE RA NGES PEDIATRIC (<17 YEARS) . . . . . . . . . . . NG/ML 20-100ADULT: IN SUFFICIENT . . . . . . . . . . . . . . NG/ML <20 SUBOP TIMAL . . . . . . . . . . . . . . . NG/ML 20-29 OPT IMAL . . . . . . . . . . . . . . . . . NG/ML 30-100 COMPREHENSIVE METABOLIC [id number] 06:35:30 Test Item Value Reference Range Interpretation Comments GLUCOSE (test code = 295 MG/DL 70-99 H 2216) BUN (test code = 77 MG/DL 6-20 H 2207) CREATININE (test 3.31 MG/DL 0.80-1.40 H code = 221) eGFR (2020 CKD-EPI) 22 ML/MIN/1.73 >60 L (test code = 01525) CALC BUN/CREAT (test 23 RATIO 6-28 code = 223) SODIUM (test code = 141 MEQ/L 170-118 9917) POTASSIUM (test code 5.4 MEQ/L 3.5-5.4 = 2227) CHLORIDE (test code 100 MEQ/L 95-107 = 2214) CARBON DIOXIDE (test 27 MEQ/L 19-31 code = 2205) CALCIUM (test code = 9.6 MG/DL 8.5-10.5 2208) PROTEIN, TOTAL (test 7.5 G/DL 6.1-8.3 code = 2228) ALBUMIN (test code = 4.0 G/DL 3.5-5.2 2200) CALC GLOBULIN (test 3.5 G/DL 1.9-3.7 code = 224) CALC A/G RATIO (test 1.1 RATIO 1.0-2.6 code = 2233) BILIRUBIN, TOTAL 0.6 MG/DL See_Comment [Automated message] (test code = 2206) The syste [employer] which generated this result transmit josé luis reference range : <=1.2. The refe rence range was not u sed to interpret th is result as normal/abnormal . ALKALINE PHOSPHATASE 132 U/L 40-118 H (test code = 2203) AST (test code = 14 U/L 9-50 2217) ALT (test code = 17 U/L 5-50 2218) URIC [id number] 06:35:30 Test Item Value Reference Range Interpretation Comments URIC ACID (test code = 2233) 11.0 MG/DL 3.7-8.0 H LIPID [id number] 06:35:30 Test Item Value Reference Range Interpretation [...] MOREINFORMATION , SEE CLIENT ANNOUNCE MENT AT [email or web address] /CalcLDL-C RISK RATIO LDL/HDL 2.45 RATIO <3.55 (test code = 2238) HEMOGLOBIN [id number] 04:52:50 Test Item Value Reference Range Interpretation Comments HEMOGLOBIN A1c (test 11.1 % 4.2-5.6 H [employer] AN DIABETES code = 42075) ASSOCIATION IDELINES FOR HGB A1C: PREDIABETES/INC REASED RISK . . . . . . . 5 .7-6.4% DIAGNOSIS OF DI ABETES . . . . . . . . . >=6 .5% WITH CONFIRMATION OR APPROPRIATE SYMPTOMS NOTE: ASSAY MAY BE AFFECTED BY HEMOGLOBINOPATH IES (SICKLE CELL ANEMIA, S- C DISEASE, OTHERS) OR KIRAN FICIALLY LOWERED BY DECR EASED RED CELL SURVIVAL ( HEMOLYTIC ANEMIAS, BLOOD LOSS, ETC.). CONSIDER ALTERN ATE TESTING OR LABORATORY C ONSULTATION. ALBUMIN/CREATININE RATIO, URINE, [id number] 04:35:05 Test Item Value Reference Range Interpretation Comments CREATININE, URINE, 36.1 MG/DL NOT ESTAB RANDOM (test code = 2072) ALBUMIN, URINE, 103.1 MG/DL NOT ESTAB RANDOM (test code = 56995) CALC 2856 MG/G <30 H Note: ALBUMIN/CREAT, RND Albumin/C reatinine ratio (test code = reference inter jamil 80474) reflects ADA an d NKF guidelines. UNL ESS OTHERWISE INDIC ATED, ALL TESTING PERFORM ED [facility] [place]. [address] [place] [id number] LABORATORY DIRE CTOR: HANNAH SHARP M.D. CLIA NUMBER [id number] [place] [id number] CBC W/AUTO DIFF WITH [id number] 03:41:46 Test Item Value Reference Range Interpretation [...] = 1036) NUCLEATED RBCS (test 0.0 /100 WBC'S See_Comment [Aut omated code = 1065) message] The sy stem which generated this [...] RBCS 0.00 K/UL 0.00-0.11 (test code = 42178) XR FOOT LEFT COMPLETE 3 [id number] 11:37:33 [facility] : 1975 [...] by: Best Mendieta MD 05/05/2021 11:37 AM ACTUARIAL TECHNICIAN [id number] Description: Albumin/Creatinine Ratio,Urine 2021-01-30 17:11:00 Test Item Value Reference Range Interpretation Comments Creatinine, Urine 54.5 mg/dL Not Estab. (test code = 2161-8) Albumin, Urine 2814.8 ug/mL Not Estab. Results confi rmed (test code = ondilution.<br/ >
P [id number]) erformed by:
[facility] ()

Alb/Creat Ratio 5165 mg/gcreat 0-29 H Normal: 0 - 29 (test code = Moderately incr eased: 9318-7) 30 - 300 Severe ly increased: >300

P erforme d by:
[facility] [place] ([place])

[facility] Description: Albumin/Creatinine Ratio,[id number] 17:11:00 Test Item Value Reference Range Interpretation Comments Creatinine, Urine 54.5 mg/dL Not Estab. (test code = 2161-8) Albumin, Urine 2814.8 ug/mL Not Estab. Results confi rmed (test code = ondilution.<br/ >
P [id number]) erformed by:
[facility] [place] ([place])

Alb/Creat Ratio 5165 mg/gcreat 0-29 H Normal: 0 - 29 (test code = Moderately incr eased: 9318-7) 30 - 300 Severe ly increased: >300

P erforme d by:
[facility] [place] ([place])

[facility] Description: Albumin/Creatinine Ratio,[id number] 17:11:00 Test Item Value Reference Range Interpretation Comments Creatinine, Urine 54.5 mg/dL Not Estab. (test code = 2161-8) Albumin, Urine 2814.8 ug/mL Not Estab. Results confi rmed (test code = ondilution.<br/ >
P [id number]) erformed by:
[facility] [place] ()

Alb/Creat Ratio 5165 mg/gcreat 0-29 H Normal: 0 - 29 (test code = Moderately incr eased: 9318-7) 30 - 300 Sever rosa isela increased: >300

P erforme d by:
[facility] [place] ([place])

[facility] Description: Albumin/Creatinine Ratio,[id number] 17:11:00 Test Item Value Reference Range Interpretation Comments Creatinine, Urine 54.5 mg/dL Not Estab. (test code = 2161-8) Albumin, Urine 2814.8 ug/mL Not Estab. Results confi rmed (test code = ondilution.<br/ >
P [id number]) erformed by:
[facility] [place] ([place])

Alb/Creat Ratio 5165 mg/gcreat 0-29 H Normal: 0 - 29 (test code = Moderately incr eased: 9318-7) 30 - 300 Sever rosa isela increased: >300

P erforme d by:
[facility] [place] ([place])

[facility] Description: Albumin/Creatinine Ratio,[id number] 17:11:00 Test Item Value Reference Range Interpretation Comments Creatinine, Urine 54.5 mg/dL Not Estab. (test code = 2161-8) Albumin, Urine 2814.8 ug/mL Not Estab. Results confi rmed (test code = ondilution.<br/ >
P [id number]) erformed by:
[facility] [place] ([place])

Alb/Creat Ratio 5165 mg/gcreat 0-29 H Normal: 0 - 29 (test code = Moderately incr eased: 9318-7) 30 - 300 Severe ly increased: >300

P erforme d by:
[facility] [place] ([place])

[facility] Description: Albumin/Creatinine Ratio,[id number] 17:11:00 Test Item Value Reference Range Interpretation Comments Creatinine, Urine 54.5 mg/dL Not Estab. (test code = 2161-8) Albumin, Urine 2814.8 ug/mL Not Estab. Results confi rmed (test code = ondilution.<br/ >
P [id number]) erformed by:
[facility] [place] ([place])

Alb/Creat Ratio 5165 mg/gcreat 0-29 H Normal: 0 - 29 (test code = Moderately incr eased: 9318-7) 30 - 300 Severe ly increased: >300

P erforme d by:
[facility] [place] ([place])

[facility] Description: Albumin/Creatinine Ratio,[id number] 17:11:00 Test Item Value Reference Range Interpretation Comments Creatinine, Urine 54.5 mg/dL Not Estab. (test code = 2161-8) Albumin, Urine 2814.8 ug/mL Not Estab. Results confi rmed (test code = ondilution.<br/ >
P [id number]) erformed by:
[facility] [place] ([place])

Alb/Creat Ratio 5165 mg/gcreat 0-29 H Normal: 0 - 29 (test code = Moderately incr eased: 9318-7) 30 - 300 Severe ly increased: >300

P erforme d by:
[facility] [place] ([place])

[facility] Description: Albumin/Creatinine Ratio,[id number] 17:11:00 Test Item Value Reference Range Interpretation Comments Creatinine, Urine 54.5 mg/dL Not Estab. (test code = 2161-8) Albumin, Urine 2814.8 ug/mL Not Estab. Results confi rmed (test code = ondilution.<br/ >
P [id number]) erformed by:
[facility] [place] ([place])

Alb/Creat Ratio 5165 mg/gcreat 0-29 H Normal: 0 - 29 (test code = Moderately incr eased: 9318-7) 30 - 300 Severe ly increased: >300

P erforme d by:
[facility] [place] ([place])

[facility] Description: Albumin/Creatinine Ratio,[id number] 17:11:00 Test Item Value Reference Range Interpretation Comments Creatinine, Urine 54.5 mg/dL Not Estab. (test code = 2161-8) Albumin, Urine 2814.8 ug/mL Not Estab. Results confi rmed (test code = ondilution.<br/ >
P [id number]) erformed by:
[facility] [place] ([place])

Alb/Creat Ratio 5165 mg/gcreat 0-29 H Normal: 0 - 29 (test code = Moderately incr eased: 9318-7) 30 - 300 Severe ly increased: >300

P erforme d by:
[facility] [place] ([place])

[facility] Description: Albumin/Creatinine Ratio,[id number] 17:11:00 Test Item Value Reference Range Interpretation Comments Creatinine, Urine 54.5 mg/dL Not Estab. (test code = 2161-8) Albumin, Urine 2814.8 ug/mL Not Estab. Results confi rmed (test code = ondilution.<br/ >
P [id number]) erformed by:
[facility] ([place])

Alb/Creat Ratio 5165 mg/gcreat 0-29 H Normal: 0 - 29 (test code = Moderately incr eased: 9318-7) 30 - 300 Severe ly increased: >300

P erforme d by:
[facility] [place] ([place])

[facility] Description: Albumin/Creatinine Ratio,[id number] 17:11:00 Test Item Value Reference Range Interpretation Comments Creatinine, Urine 54.5 mg/dL Not Estab. (test code = 2161-8) Albumin, Urine 2814.8 ug/mL Not Estab. Results confi rmed (test code = ondilution.<br/ >
P [id number]) erformed by:
[facility] [place] ([place])

Alb/Creat Ratio 5165 mg/gcreat 0-29 H Normal: 0 - 29 (test code = Moderately incr eased: 9318-7) 30 - 300 Severe ly increased: >300

P erforme d by:
[facility] [place] ([place])

[facility] Description: Albumin/Creatinine Ratio,[id number] 17:11:00 Test Item Value Reference Range Interpretation Comments Creatinine, Urine 54.5 mg/dL Not Estab. (test code = 2161-8) Albumin, Urine 2814.8 ug/mL Not Estab. Results confi rmed (test code = ondilution.<br/ >
P [id number]) erformed by:
[facility] [place] ([place])

Alb/Creat Ratio 5165 mg/gcreat 0-29 H Normal: 0 - 29 (test code = Moderately incr eased: 9318-7) 30 - 300 Severe ly increased: >300

P erforme d by:
[facility] [place] ([place])

[facility] Description: Albumin/Creatinine Ratio,[id number] 17:11:00 Test Item Value Reference Range Interpretation Comments Creatinine, Urine 54.5 mg/dL Not Estab. (test code = 2161-8) Albumin, Urine 2814.8 ug/mL Not Estab. Results confi rmed (test code = ondilution.<br/ >
P [id number]) erformed by:
[facility] [place] ([place])

Alb/Creat Ratio 5165 mg/gcreat 0-29 H Normal: 0 - 29 (test code = Moderately incr eased: 9318-7) 30 - 300 Sever rosa isela increased: >300

P erforme d by:
[facility] [place] ([place])

[facility] Description: Albumin/Creatinine Ratio,[id number] 17:11:00 Test Item Value Reference Range Interpretation Comments Creatinine, Urine 54.5 mg/dL Not Estab. (test code = 2161-8) Albumin, Urine 2814.8 ug/mL Not Estab. Results confi rmed (test code = ondilution.<br/ >
P 99891-7) erformed by:
[facility] [place] ([place])

Alb/Creat Ratio 5165 mg/gcreat 0-29 H Normal: 0 - 29 (test code = Moderately incr eased: 9318-7) 30 - 300 Sever rosa isela increased: >300

P erforme d by:
[facility] [place] ([place])

[facility] Description: Natriuretic peptide B [Mass/volume] in Serum or [id number] 13:36:00 Test Item Value Reference Range Interpretation Comments B-Type Natriuretic Peptide (test 396.8 pg/mL 0.0-100.0 H code = 18748-7) [facility] Description: Natriuretic peptide B [Mass/volume] in Serum or [id number] 13:36:00 Test Item Value Reference Range Interpretation Comments B-Type Natriuretic Peptide (test 396.8 pg/mL 0.0-100.0 H code = 57874-2) [facility] Description: Natriuretic peptide B [Mass/volume] in Serum or [id number] 13:36:00 Test Item Value Reference Range Interpretation Comments B-Type Natriuretic Peptide (test 396.8 pg/mL 0.0-100.0 H code = 06679-3) [facility] Description: Natriuretic peptide B [Mass/volume] in Serum or [id number] 13:36:00 Test Item Value Reference Range Interpretation Comments B-Type Natriuretic Peptide (test 396.8 pg/mL 0.0-100.0 H code = 94680-6) [facility] Description: Natriuretic peptide B [Mass/volume] in Serum or [id number] 13:36:00 Test Item Value Reference Range Interpretation Comments B-Type Natriuretic Peptide (test 396.8 pg/mL 0.0-100.0 H code = 70270-8) [facility] Description: Natriuretic peptide B [Mass/volume] in Serum or [id number] 13:36:00 Test Item Value Reference Range Interpretation Comments B-Type Natriuretic Peptide (test 396.8 pg/mL 0.0-100.0 H code = 38946-0) [facility] Description: Natriuretic peptide B [Mass/volume] in Serum or [id number] 13:36:00 Test Item Value Reference Range Interpretation Comments B-Type Natriuretic Peptide (test 396.8 pg/mL 0.0-100.0 H code = 69024-2) [facility] Description: Natriuretic peptide B [Mass/volume] in Serum or [id number] 13:36:00 Test Item Value Reference Range Interpretation Comments B-Type Natriuretic Peptide (test 396.8 pg/mL 0.0-100.0 H code = 79851-9) [facility] Description: Natriuretic peptide B [Mass/volume] in Serum or [id number] 13:36:00 Test Item Value Reference Range Interpretation Comments B-Type Natriuretic Peptide (test 396.8 pg/mL 0.0-100.0 H code = 07947-7) [facility] Description: Natriuretic peptide B [Mass/volume] in Serum or [id number] 13:36:00 Test Item Value Reference Range Interpretation Comments B-Type Natriuretic Peptide (test 396.8 pg/mL 0.0-100.0 H code = 63931-2) [facility] Description: Natriuretic peptide B [Mass/volume] in Serum or [id number] 13:36:00 Test Item Value Reference Range Interpretation Comments B-Type Natriuretic Peptide (test 396.8 pg/mL 0.0-100.0 H code = 88124-3) [facility] Description: Natriuretic peptide B [Mass/volume] in Serum or [id number] 13:36:00 Test Item Value Reference Range Interpretation Comments B-Type Natriuretic Peptide (test 396.8 pg/mL 0.0-100.0 H code = 36210-7) [facility] Description: Natriuretic peptide B [Mass/volume] in Serum or [id number] 13:36:00 Test Item Value Reference Range Interpretation Comments B-Type Natriuretic Peptide (test 396.8 pg/mL 0.0-100.0 H code = 62100-2) [facility] Description: Natriuretic peptide B [Mass/volume] in Serum or [id number] 13:36:00 Test Item Value Reference Range Interpretation Comments B-Type Natriuretic Peptide (test 396.8 pg/mL 0.0-100.0 H code = 61751-9) [facility] Description: Hemoglobin A1c/Hemoglobin.total in Blood 2021-01-30 12:27:00 Test Item Value Reference Range Interpretation Comments Hemoglobin A1c (test code 8.7 % 4.8-5.6 H . Prediabetes: 5.7 - = 4548-4) 6.4 Diabetes: > 6.4 Glycemic contro l for adults with mary ann betes: <7.0

P erformed by:
[facility] ([place])

[facility] Description: Hemoglobin A1c/Hemoglobin.total in Blood 2021-01-30 12:27:00 Test Item Value Reference Range Interpretation Comments Hemoglobin A1c (test code 8.7 % 4.8-5.6 H . Prediabetes: 5.7 - = 4548-4) 6.4 Diabetes: > 6.4 Glycemic contro l for adults with mary ann betes: <7.0

P erformed by:
[facility] [place] ()

[facility] Description: Hemoglobin A1c/Hemoglobin.total in Blood 2021-01-30 12:27:00 Test Item Value Reference Range Interpretation Comments Hemoglobin A1c (test code 8.7 % 4.8-5.6 H . Prediabetes: 5.7 - = 4548-4) 6.4 Diabetes: > 6.4 Glycemic contro l for adults with mary nan betes: <7.0

P erformed by:
[facility] [place] ()

[facility] Description: Hemoglobin A1c/Hemoglobin.total in Blood 2021-01-30 12:27:00 Test Item Value Reference Range Interpretation Comments Hemoglobin A1c (test code 8.7 % 4.8-5.6 H . Prediabetes: 5.7 - = 4548-4) 6.4 Diabetes: > 6.4 Glycemic contro l for adults with mary ann betes: <7.0

P erformed by:
[facility] [place] ()

[facility] Description: Hemoglobin A1c/Hemoglobin.total in Blood 2021-01-30 12:27:00 Test Item Value Reference Range Interpretation Comments Hemoglobin A1c (test code 8.7 % 4.8-5.6 H . Prediabetes: 5.7 - = 4548-4) 6.4 Diabetes: > 6.4 Glycemic contro l for adults with mary ann betes: <7.0

P erformed by:
[facility] [place] ()

[facility] Description: Hemoglobin A1c/Hemoglobin.total in Blood 2021-01-30 12:27:00 Test Item Value Reference Range Interpretation Comments Hemoglobin A1c (test code 8.7 % 4.8-5.6 H . Prediabetes: 5.7 - = 4548-4) 6.4 Diabetes: > 6.4 Glycemic contro l for adults with mary ann betes: <7.0

P erformed by:
[facility] [place] ([place])

[facility] Description: Hemoglobin A1c/Hemoglobin.total in Blood 2021-01-30 12:27:00 Test Item Value Reference Range Interpretation Comments Hemoglobin A1c (test code 8.7 % 4.8-5.6 H . Prediabetes: 5.7 - = 4548-4) 6.4 Diabetes: > 6.4 Glycemic contro l for adults with mary ann betes: <7.0

P erformed by:
[facility] ([place])

[facility] Description: Hemoglobin A1c/Hemoglobin.total in Blood 2021-01-30 12:27:00 Test Item Value Reference Range Interpretation Comments Hemoglobin A1c (test code 8.7 % 4.8-5.6 H . Prediabetes: 5.7 - = 4548-4) 6.4 Diabetes: > 6.4 Glycemic contro l for adults with mray ann betes: <7.0

P erformed by:
[facility] ([place])

[facility] Description: Hemoglobin A1c/Hemoglobin.total in Blood 2021-01-30 12:27:00 Test Item Value Reference Range Interpretation Comments Hemoglobin A1c (test code 8.7 % 4.8-5.6 H . Prediabetes: 5.7 - = 4548-4) 6.4 Diabetes: > 6.4 Glycemic contro l for adults with mary ann betes: <7.0

P erformed by:
[facility] [place] ()

[facility] Description: Hemoglobin A1c/Hemoglobin.total in Blood 2021-01-30 12:27:00 Test Item Value Reference Range Interpretation Comments Hemoglobin A1c (test code 8.7 % 4.8-5.6 H . Prediabetes: 5.7 - = 4548-4) 6.4 Diabetes: > 6.4 Glycemic contro l for adults with mary ann betes: <7.0

P erformed by:
[facility] [place] ()

[facility] Description: Hemoglobin A1c/Hemoglobin.total in Blood 2021-01-30 12:27:00 Test Item Value Reference Range Interpretation Comments Hemoglobin A1c (test code 8.7 % 4.8-5.6 H . Prediabetes: 5.7 - = 4548-4) 6.4 Diabetes: > 6.4 Glycemic contro l for adults with mary ann betes: <7.0

P erformed by:
[facility] [place] ()

[facility] Description: Hemoglobin A1c/Hemoglobin.total in Blood 2021-01-30 12:27:00 Test Item Value Reference Range Interpretation Comments Hemoglobin A1c (test code 8.7 % 4.8-5.6 H . Prediabetes: 5.7 - = 4548-4) 6.4 Diabetes: > 6.4 Glycemic contro l for adults with mary ann betes: <7.0

P erformed by:
[facility] [place] ()

[facility] Description: Hemoglobin A1c/Hemoglobin.total in Blood 2021-01-30 12:27:00 Test Item Value Reference Range Interpretation Comments Hemoglobin A1c (test code 8.7 % 4.8-5.6 H . Prediabetes: 5.7 - = 4548-4) 6.4 Diabetes: > 6.4 Glycemic contro l for adults with mary ann betes: <7.0

P erformed by:
[facility] [place] ()

[facility] Description: Hemoglobin A1c/Hemoglobin.total in Blood 2021-01-30 12:27:00 Test Item Value Reference Range Interpretation Comments Hemoglobin A1c (test code 8.7 % 4.8-5.6 H . Prediabetes: 5.7 - = 4548-4) 6.4 Diabetes: > 6.4 Glycemic contro l for adults with mary ann betes: <7.0

P erformed by:
[facility] [place] ()

[facility] Description: C reactive protein [Mass/volume] in Serum or [id number] 04:53:00 Test Item Value Reference Range Interpretation Comments C-Reactive Protein, Quant (test code 13 mg/L 0-10 H = 1987-07) [facility] Description: C reactive protein [Mass/volume] in Serum or [id number] 04:53:00 Test Item Value Reference Range Interpretation Comments C-Reactive Protein, Quant (test code 13 mg/L 0-10 H = 1987-07) [facility] Description: C reactive protein [Mass/volume] in Serum or [id number] 04:53:00 Test Item Value Reference Range Interpretation Comments C-Reactive Protein, Quant (test code 13 mg/L 0-10 H = 1987-07) [facility] Description: C reactive protein [Mass/volume] in Serum or [id number] 04:53:00 Test Item Value Reference Range Interpretation Comments C-Reactive Protein, Quant (test code 13 mg/L 0-10 H = 1987-07) [facility] Description: C reactive protein [Mass/volume] in Serum or [id number] 04:53:00 Test Item Value Reference Range Interpretation Comments C-Reactive Protein, Quant (test code 13 mg/L 0-10 H = 1987-07) [facility] Description: C reactive protein [Mass/volume] in Serum or [id number] 04:53:00 Test Item Value Reference Range Interpretation Comments C-Reactive Protein, Quant (test code 13 mg/L 0-10 H = 1987-07) [facility] Description: C reactive protein [Mass/volume] in Serum or [id number] 04:53:00 Test Item Value Reference Range Interpretation Comments C-Reactive Protein, Quant (test code 13 mg/L 0-10 H = 1987-07) [facility] Description: C reactive protein [Mass/volume] in Serum or [id number] 04:53:00 Test Item Value Reference Range Interpretation Comments C-Reactive Protein, Quant (test code 13 mg/L 0-10 H = 1987-07) [facility] Description: C reactive protein [Mass/volume] in Serum or [id number] 04:53:00 Test Item Value Reference Range Interpretation Comments C-Reactive Protein, Quant (test code 13 mg/L 0-10 H = 1987-07) [facility] Description: C reactive protein [Mass/volume] in Serum or [id number] 04:53:00 Test Item Value Reference Range Interpretation Comments C-Reactive Protein, Quant (test code 13 mg/L 0-10 H = 1987-07) [facility] Description: C reactive protein [Mass/volume] in Serum or [id number] 04:53:00 Test Item Value Reference Range Interpretation Comments C-Reactive Protein, Quant (test code 13 mg/L 0-10 H = 1987-07) [facility] Description: C reactive protein [Mass/volume] in Serum or [id number] 04:53:00 Test Item Value Reference Range Interpretation Comments C-Reactive Protein, Quant (test code 13 mg/L 0-10 H = 1987-07) [facility] Description: C reactive protein [Mass/volume] in Serum or [id number] 04:53:00 Test Item Value Reference Range Interpretation Comments C-Reactive Protein, Quant (test code 13 mg/L 0-10 H = 1987-07) [facility] Description: C reactive protein [Mass/volume] in Serum or [id number] 04:53:00 Test Item Value Reference Range Interpretation Comments C-Reactive Protein, Quant (test code 13 mg/L 0-10 H = 1987-07) [facility] Description: 25-hydroxyvitamin D3 [Mass/volume] in Serum or [id number] 03:48:00 Test Item Value Reference Range Interpretation Comments Vitamin D, 17.6 ng/mL 30.0-100.0 L Vitamin D defic iency has 25-Hydroxy (test been define d by the code = 77244-2) [place] [employer] and an Endocrine So ciety practice guidel ine as alevel of serum 25-OH vitamin D less than 20 ng/mL (1,2).The Endocrine Society went on to further define vitamin Dinsufficiency as a level between 21 and 29 ng/mL (2).1. IOM (Ins titute of Medicine). 2010 . Dietary reference intak es for calcium and D. [place]: The [facility] [employer] .2. Dileep Ela AREVALO, Stephane EMERSON, et al. Evaluation, treatment, and prevention of vitamin D de ficiency: an Endocrine So [facility] clinical practi ce guideline. EM . 2010; 96(7):1911-30.& lt;br/>
Performed by:
[facility] ([place])

[facility] Description: 25-hydroxyvitamin D3 [Mass/volume] in Serum or [id number] 03:48:00 Test Item Value Reference Range Interpretation Comments Vitamin D, 17.6 ng/mL 30.0-100.0 L Vitamin D defic iency has 25-Hydroxy (test been define d by the code = 13996-0) [employer] [employer] and an Endocrine So [facility] practice guidel ine as alevel of serum 25-OH vitamin D less than 20 ng/mL (1,2).The Endocrine Society went on to further define vitamin Dinsufficiency as a level between 21 and 29 ng/mL (2).1. IOM (Ins titute of Medicine). 2010 . Dietary reference intak es for calcium and D. [place]: [facility] [employer] .2. Dileep AREVALO, Ela SANTA, Stephane EMERSON, et al. Evaluation, treatment, and prevention of vitamin D de ficiency: an Endocrine So [facility] clinical practi ce guideline. [facility] . 2010; 96(7):1911-30.& lt;br/>
Performed by:
[facility] ([place])

[facility] Description: 25-hydroxyvitamin D3 [Mass/volume] in Serum or [id number] 03:48:00 Test Item Value Reference Range Interpretation Comments Vitamin D, 17.6 ng/mL 30.0-100.0 L Vitamin D defic iency has 25-Hydroxy (test been define d by the code = 54715-3) [employer] [employer] and an Endocrine So [facility] practice guidel ine as alevel of serum 25-OH vitamin D less than 20 ng/mL (1,2).The Endocrine Society went on to further define vitamin Dinsufficiency as a level between 21 and 29 ng/mL (2).1. IOM (Ins titute of Medicine). 2010 . Dietary reference intak es for calcium and D. [facility]: [employer] .2. Ela Oliveros, Stephane EMERSON, et al. Evaluation, treatment, and prevention of vitamin D de ficiency: an Endocrine So [facility] clinical practi ce guideline. JCEM . 2010; 96(7):191-.& lt;br/>
Performed by:
[facility] ([place])

[facility] Description: 25-hydroxyvitamin D3 [Mass/volume] in Serum or [id number] 03:48:00 Test Item Value Reference Range Interpretation Comments Vitamin D, 17.6 ng/mL 30.0-100.0 L Vitamin D defic iency has 25-Hydroxy (test been define d by the code = 27984-7) [employer] [employer] and an Endocrine So [facility] practice guidel ine as alevel of serum 25-OH vitamin D less than 20 ng/mL (1,2).The Endocrine Society went on to further define vitamin Dinsufficiency as a level between 21 and 29 ng/mL (2).1. IOM (Ins titute of Medicine). 2010 . Dietary reference intak es for calcium and D. [facility]: The [employer] .2. Ela Oliveros, Stephane EMERSON, et al. Evaluation, treatment, and prevention of vitamin D de ficiency: an Endocrine So [facility] clinical practi ce guideline. EM . 2010; 96(7):1911-30.& lt;br/>
Performed by:
[facility] ([place])

[facility] Description: 25-hydroxyvitamin D3 [Mass/volume] in Serum or [id number] 03:48:00 Test Item Value Reference Range Interpretation Comments Vitamin D, 17.6 ng/mL 30.0-100.0 L Vitamin D defic iency has 25-Hydroxy (test been define d by the code = 97797-8) [employer] [employer] and an Endocrine So [facility] practice guidel ine as alevel of serum 25-OH vitamin D less than 20 ng/mL (1,2).The Endocrine Society went on to further define vitamin Dinsufficiency as a level between 21 and 29 ng/mL (2).1. IOM (Ins titute of Medicine). 2010 . Dietary reference intak es for calcium and D. [facility]: [employer] .2. Ela Oliveros, Stephane EMERSON, et al. Evaluation, treatment, and prevention of vitamin D de ficiency: an Endocrine So [facility] clinical practi ce guideline. JCEM . 2010; 96(7):1911-30.& lt;br/>
Performed by:
[facility] ([place])

[facility] Description: 25-hydroxyvitamin D3 [Mass/volume] in Serum or [id number] 03:48:00 Test Item Value Reference Range Interpretation Comments Vitamin D, 17.6 ng/mL 30.0-100.0 L Vitamin D defic iency has 25-Hydroxy (test been define d by the code = 50417-6) [employer] [employer] and an Endocrine So [facility] practice guidel ine as alevel of serum 25-OH vitamin D less than 20 ng/mL (1,2).The Endocrine Society went on to further define vitamin Dinsufficiency as a level between 21 and 29 ng/mL (2).1. IOM (Ins titute of Medicine). 2010 . Dietary reference intak es for calcium and D. [facility]: [facility] [employer] .2. Ela Oliveros, Stephane EMRESON, et al. Evaluation, treatment, and prevention of vitamin D de ficiency: an Endocrine So [facility] clinical practi ce guideline. EM . 2010; 96(7):1911-30.& lt;br/>
Performed by:
[facility] ([place])

[facility] Description: 25-hydroxyvitamin D3 [Mass/volume] in Serum or [id number] 03:48:00 Test Item Value Reference Range Interpretation Comments Vitamin D, 17.6 ng/mL 30.0-100.0 L Vitamin D defic iency has 25-Hydroxy (test been define d by the code = 81676-0) [employer] [employer] and an Endocrine So ciety practice guidel ine as alevel of serum 25-OH vitamin D less than 20 ng/mL (1,2).The Endocrine Society went on to further define vitamin Dinsufficiency as a level between 21 and 29 ng/mL (2).1. IOM (Ins titute of Medicine). 2010 . Dietary reference intak es for calcium and D. [facility]: [employer] .2. Ela Oliveros, Stephane EMERSON, et al. Evaluation, treatment, and prevention of vitamin D de ficiency: an Endocrine So [facility] clinical practi ce guideline. JCEM . 2010; 96(7):191-.& lt;br/>
Performed by:
[employer] ([place])

[facility] Description: 25-hydroxyvitamin D3 [Mass/volume] in Serum or [id number] 03:48:00 Test Item Value Reference Range Interpretation Comments Vitamin D, 17.6 ng/mL 30.0-100.0 L Vitamin D defic iency has 25-Hydroxy (test been define d by the code = 08688-4) [employer] [employer] and an Endocrine [facility] practice guidel ine as alevel of serum 25-OH vitamin D less than 20 ng/mL (1,2).The Endocrine Society went on to further define vitamin Dinsufficiency as a level between 21 and 29 ng/mL (2).1. IOM (Ins titute of Medicine). 2010 . Dietary reference intak es for calcium and D. [facility]: [employer] .2. Ela Oliveros, Stephane EMERSON, et al. Evaluation, treatment, and prevention of vitamin D de ficiency: an Endocrine So [facility] clinical practi ce guideline. JCEM . 2010; 96(7):191-30.& lt;br/>
Performed by:
[employer] ([place])

[facility] Description: 25-hydroxyvitamin D3 [Mass/volume] in Serum or [id number] 03:48:00 Test Item Value Reference Range Interpretation Comments Vitamin D, 17.6 ng/mL 30.0-100.0 L Vitamin D defic iency has 25-Hydroxy (test been define d by the code = 54504-3) [employer] and an Endocrine [facility] practice guidel ine as alevel of serum 25-OH vitamin D less than 20 ng/mL (1,2).The Endocrine Society went on to further define vitamin Dinsufficiency as a level between 21 and 29 ng/mL (2).1. IOM (Ins titute of Medicine). 2010 . Dietary reference intak es for calcium and D. [facility]: [employer] .2. Ela Oliveros, Stephane EMERSON, et al. Evaluation, treatment, and prevention of vitamin D de ficiency: an Endocrine So [facility] clinical practi ce guideline. JCEM . 2010; 96(7):1911-30.& lt;br/>
Performed by:
[facility] ()

[facility] Description: 25-hydroxyvitamin D3 [Mass/volume] in Serum or [id number] 03:48:00 Test Item Value Reference Range Interpretation Comments Vitamin D, 17.6 ng/mL 30.0-100.0 L Vitamin D defic iency has 25-Hydroxy (test been define d by the code = 33782-6) [employer] and an Endocrine So [facility] practice guidel ine as alevel of serum 25-OH vitamin D less than 20 ng/mL (1,2).The Endocrine Society went on to further define vitamin Dinsufficiency as a level between 21 and 29 ng/mL (2).1. IOM (Ins titute of Medicine). 2010 . Dietary reference intak es for calcium and D. [facility]: [employer] .2. Ela Oliveros, Stephane EMERSON, et al. Evaluation, treatment, and prevention of vitamin D de ficiency: an Endocrine So [facility] clinical practi ce guideline. JCEM . 2010; 96(7):1911-30.& lt;br/>
Performed by:
[facility] ([place])

[facility] Description: 25-hydroxyvitamin D3 [Mass/volume] in Serum or [id number] 03:48:00 Test Item Value Reference Range Interpretation Comments Vitamin D, 17.6 ng/mL 30.0-100.0 L Vitamin D defic iency has 25-Hydroxy (test been define d by the code = 63927-4) [employer] and an Endocrine So [facility] practice guidel ine as alevel of serum 25-OH vitamin D less than 20 ng/mL (1,2).The Endocrine Society went on to further define vitamin Dinsufficiency as a level between 21 and 29 ng/mL (2).1. IOM (Ins titute of Medicine). 2010 . Dietary reference intak es for calcium and D. [facility]: [facility] [place] [employer] .2. Ela Oliveros, Stephane EMERSON, et al. Evaluation, treatment, and prevention of vitamin D de ficiency: an Endocrine So [facility] clinical practi ce guideline. JCEM . 2010; 96(7):1911-30.& lt;br/>
Performed by:
[employer] [facility] ([place])

[facility] Description: 25-hydroxyvitamin D3 [Mass/volume] in Serum or [id number] 03:48:00 Test Item Value Reference Range Interpretation Comments Vitamin D, 17.6 ng/mL 30.0-100.0 L Vitamin D defic iency has 25-Hydroxy (test been define d by the code = 24807-7) [employer] and an Endocrine [facility] practice guidel ine as alevel of serum 25-OH vitamin D less than 20 ng/mL (1,2).The Endocrine Society went on to further define vitamin Dinsufficiency as a level between 21 and 29 ng/mL (2).1. IOM (Ins titute of Medicine). 2010 . Dietary reference intak es for calcium and D. [facility]: [facility] [place] [employer] .2. Ela Oliveros, Stephane EMERSON, et al. Evaluation, treatment, and prevention of vitamin D de ficiency: an Endocrine So [facility] clinical practi ce guideline. [facility] . 2010; 96(7):1911-30.& lt;br/>
Performed by:
[facility] ([place])

[facility] Description: 25-hydroxyvitamin D3 [Mass/volume] in Serum or [id number] 03:48:00 Test Item Value Reference Range Interpretation Comments Vitamin D, 17.6 ng/mL 30.0-100.0 L Vitamin D defic iency has 25-Hydroxy (test been define d by the code = 86192-8) [employer] and an Endocrine [facility] practice guidel ine as alevel of serum 25-OH vitamin D less than 20 ng/mL (1,2).The Endocrine Society went on to further define vitamin Dinsufficiency as a level between 21 and 29 ng/mL (2).1. IOM (Ins titute of Medicine). 2010 . Dietary reference intak es for calcium and D. [facility]: [employer] [place] [employer] .2. Dileep MF, Ela SANTA, Stephane blake EMERSON, et al. Evaluation, treatment, and prevention of vitamin D de ficiency: an Endocrine So [facility] clinical practi ce guideline. [facility] . 2010; 96(7):1911-30.& lt;br/>
Performed by:
[facility] ([place])

[facility] Description: 25-hydroxyvitamin D3 [Mass/volume] in Serum or [id number] 03:48:00 Test Item Value Reference Range Interpretation Comments Vitamin D, 17.6 ng/mL 30.0-100.0 L Vitamin D defic iency has 25-Hydroxy (test been define d by the code = 52705-6) [employer] and an Endocrine [facility] practice guidel ine as alevel of serum 25-OH vitamin D less than 20 ng/mL (1,2).The Endocrine Society went on to further define vitamin Dinsufficiency as a level between 21 and 29 ng/mL (2).1. IOM (Ins titute of Medicine). 2010 . Dietary reference intak es for calcium and D. [place]: The [facility] [employer] .2. Dileep MF, Ela [place], Stephane blake EMERSON, et al. Evaluation, treatment, and prevention of vitamin D de ficiency: an Endocrine So [facility] clinical practi ce guideline. JCEM . 2010; 96(0):5941-30.& lt;br/>
Performed by:
[facility] ([place])

[facility] Description: Erythrocyte sedimentation rate by Westergren [id number] 03:06:00 Test Item Value Reference Range Interpretation Comments Sedimentation Rate-Westergren (test 27 mm/hr 0-15 H code = 4537-7) [facility] Description: Erythrocyte sedimentation rate by Westergren [id number] 03:06:00 Test Item Value Reference Range Interpretation Comments Sedimentation Rate-Westergren (test 27 mm/hr 0-15 H code = 4537-7) [facility] Description: Erythrocyte sedimentation rate by Westergren [id number] 03:06:00 Test Item Value Reference Range Interpretation Comments Sedimentation Rate-Westergren (test 27 mm/hr 0-15 H code = 4537-7) [facility] Description: Erythrocyte sedimentation rate by Westergren [id number] 03:06:00 Test Item Value Reference Range Interpretation Comments Sedimentation Rate-Westergren (test 27 mm/hr 0-15 H code = 4537-7) [facility] Description: Erythrocyte sedimentation rate by Westergren [id number] 03:06:00 Test Item Value Reference Range Interpretation Comments Sedimentation Rate-Westergren (test 27 mm/hr 0-15 H code = 4537-7) [facility] Description: Erythrocyte sedimentation rate by Westergren [id number] 03:06:00 Test Item Value Reference Range Interpretation Comments Sedimentation Rate-Westergren (test 27 mm/hr 0-15 H code = 4537-7) [facility] Description: Erythrocyte sedimentation rate by Westergren [id number] 03:06:00 Test Item Value Reference Range Interpretation Comments Sedimentation Rate-Westergren (test 27 mm/hr 0-15 H code = 4537-7) [facility] Description: Erythrocyte sedimentation rate by Westergren [id number] 03:06:00 Test Item Value Reference Range Interpretation Comments Sedimentation Rate-Westergren (test 27 mm/hr 0-15 H code = 4537-7) [facility] Description: Erythrocyte sedimentation rate by Westergren [id number] 03:06:00 Test Item Value Reference Range Interpretation Comments Sedimentation Rate-Westergren (test 27 mm/hr 0-15 H code = 4537-7) [facility] Description: Erythrocyte sedimentation rate by Westergren [id number] 03:06:00 Test Item Value Reference Range Interpretation Comments Sedimentation Rate-Westergren (test 27 mm/hr 0-15 H code = 4537-7) [facility] Description: Erythrocyte sedimentation rate by Westergren [id number] 03:06:00 Test Item Value Reference Range Interpretation Comments Sedimentation Rate-Westergren (test 27 mm/hr 0-15 H code = 4537-7) [facility] Description: Erythrocyte sedimentation rate by Westergren [id number] 03:06:00 Test Item Value Reference Range Interpretation Comments Sedimentation Rate-Westergren (test 27 mm/hr 0-15 H code = 4537-7) [facility] Description: Erythrocyte sedimentation rate by Westergren [id number] 03:06:00 Test Item Value Reference Range Interpretation Comments Sedimentation Rate-Westergren (test 27 mm/hr 0-15 H code = 4537-7) [facility] Description: Erythrocyte sedimentation rate by Westergren [id number] 03:06:00 Test Item Value Reference Range Interpretation [...] >59 L Am (test code = mL/min/1.73 52940-0) eGFR If Africn Am 36 >59 L In accor dance with (test code = mL/min/1.73 recommendations from 57528-3) the NKF-ASN Tas k force, [facility] is in the process of updating its eG FR calculation to the 2020 CKD-EPI creatinine equa tion that estimates kidney function withou t a race variable.
< br/>Per formed by:
[facility] ([place])

BUN/Creatinine 24 9-20 H Ratio (test code = 3097-3) Sodium (test code = 139 mmol/L 157-896 7212-2) Potassium (test 4.9 mmol/L 3.5-5.2 code = 2823-3) Chloride (test code 100 mmol/L 96-106 = 2075-0) Carbon Dioxide, 23 mmol/L 20-29 Total (test code = 2027-) Calcium (test code 9.0 mg/dL 8.7-10.2 = 15131-6) Protein, Total 6.5 g/dL 6.0-8.5 (test code = 2885-2) Albumin (test code 3.4 g/dL 4.0-5.0 L = 1751-7) Globulin, Total 3.1 g/dL 1.5-4.5 (test code = 42313-4) A/G Ratio (test 1.1 1.2-2.2 L code = 1759-0) Bilirubin, Total 0.4 mg/dL 0.0-1.2 (test code = 1975-2) Alkaline 124 IU/L 44-121 H Please note Phosphatase (test reference interval code = 6768-6) change

Perf ormed by:
[facility] ([place])

AST [...] Range Interpretation Comments Magnesium (test code = 80670-2) 1.8 mg/dL 1.6-2.3 [facility] Description: Microscopic Zetorddmdis1857-69-07 02:57:00 Test Item Value Reference Range Interpretation Comments WBC (test code = 5821-4) None seen 0-5 RBC (test code = 23843-8) None seen 0-2 Epithelial Cells (non renal) (test None seen 0-10 code = 5787-7) Epithelial Cells (renal) (test code = 28892-4) Casts (test code = 28349-7) None seen None seen Cast Type (test code = 96823-8) Crystals (test code = 5783-6) Crystal Type (test code = 5782-8) Mucus Threads (test code = 8247-9) Bacteria (test code = 5769-5) None seen None seen/Few Yeast (test code = 5822-2) Trichomonas (test code = 5813-1) Comment (test code = 06131-8) [facility] Description: Urate [Mass/volume] in Serum or [id number] 02:57:00 Test Item Value Reference Range Interpretation Comments Uric Acid (test 11.5 mg/dL 3.8-8.4 H Therapeutic target for code = 3084-1) gout patients : <6.0

P erformed by:
[facility] [place] ()

[facility] Description: Comp. Metabolic Panel (14)2021-01-30 02:57:00 Test Item Value Reference Range Interpretation Comments Glucose (test code 256 mg/dL 65-99 H = 2345-7) BUN (test code = 57 mg/dL 6-24 H 3094-0) Creatinine (test 2.38 mg/dL 0.76-1.27 H code = 2160-0) eGFR If NonAfricn 31 >59 L Am (test code = mL/min/1.73 93916-4) eGFR If Africn Am 36 >59 L In accor dance with (test code = mL/min/1.73 recommendations from 54685-2) the NKF-ASN Tas k force, [facility] is in the process of updating its eG FR calculation to the 2020 CKD-EPI creatinine equa tion that estimates kidney function withou t a race variable.
< br/>Per formed by:
[facility] ([place])

BUN/Creatinine 24 9-20 H Ratio (test code = 3097-3) Sodium (test code = 139 mmol/L 783-735 0974-2) Potassium (test 4.9 mmol/L 3.5-5.2 code = 2823-3) Chloride (test code 100 mmol/L 96-106 = 2075-0) Carbon Dioxide, 23 mmol/L 20-29 Total (test code = 2027-) Calcium (test code 9.0 mg/dL 8.7-10.2 = 24669-2) Protein, Total 6.5 g/dL 6.0-8.5 (test code = 2885-2) Albumin (test code 3.4 g/dL 4.0-5.0 L = 1751-7) Globulin, Total 3.1 g/dL 1.5-4.5 (test code = 61359-6) A/G Ratio (test 1.1 1.2-2.2 L code = 1759-0) Bilirubin, Total 0.4 mg/dL 0.0-1.2 (test code = 1975-2) Alkaline 124 IU/L 44-121 H Please note Phosphatase (test reference interval code = 6768-6) change

Perf ormed by:
[facility] ([place])

AST [...] Range Interpretation Comments Magnesium (test code = 90693-9) 1.8 mg/dL 1.6-2.3 [facility] Description: Microscopic Ocuselyhwry5418-48-09 02:57:00 Test Item Value Reference Range Interpretation Comments WBC (test code = 5821-4) None seen 0-5 RBC (test code = 09188-4) None seen 0-2 Epithelial Cells (non renal) (test None seen 0-10 code = 5787-7) Epithelial Cells (renal) (test code = 78585-0) Casts (test code = 00898-2) None seen None seen Cast Type (test code = 19082-7) Crystals (test code = 5783-6) Crystal Type (test code = 5782-8) Mucus Threads (test code = 8247-9) Bacteria (test code = 5769-5) None seen None seen/Few Yeast (test code = 5822-2) Trichomonas (test code = 5813-1) Comment (test code = 40962-8) [facility] Description: Urate [Mass/volume] in Serum or Tntamm7643-53-25 02:57:00 Test Item Value Reference Range Interpretation Comments Uric Acid (test 11.5 mg/dL 3.8-8.4 H Therapeutic target for code = 3084-1) gout patients : <6.0

P erformed by:
[facility] ([place])

[facility] Description: Comp. Metabolic Panel (14)2021-01-30 02:57:00 Test Item Value Reference Range Interpretation Comments Glucose (test code 256 mg/dL 65-99 H = 2345-7) BUN (test code = 57 mg/dL 6-24 H 3094-0) Creatinine (test 2.38 mg/dL 0.76-1.27 H code = 2160-0) eGFR If NonAfricn 31 >59 L Am (test code = mL/min/1.73 08512-5) eGFR If Africn Am 36 >59 L In accor dance with (test code = mL/min/1.73 recommendations from 10591-7) the NKF-ASN Tas k force, [facility] is in the process of updating its eG FR calculation to the 2020 CKD-EPI creatinine equa tion that estimates kidney function withou t a race variable.
< br/>Per formed by:
[facility] ([place])

BUN/Creatinine 24 9-20 H Ratio (test code = 3097-3) Sodium (test code = 139 mmol/L 972-949 4376-2) Potassium (test 4.9 mmol/L 3.5-5.2 code = 2823-3) Chloride (test code 100 mmol/L 96-106 = 2075-0) Carbon Dioxide, 23 mmol/L 20-29 Total (test code = 2027-) Calcium (test code 9.0 mg/dL 8.7-10.2 = 40062-4) Protein, Total 6.5 g/dL 6.0-8.5 (test code = 2885-2) Albumin (test code 3.4 g/dL 4.0-5.0 L = 1751-7) Globulin, Total 3.1 g/dL 1.5-4.5 (test code = 29628-0) A/G Ratio (test 1.1 1.2-2.2 L code = 1759-0) Bilirubin, Total 0.4 mg/dL 0.0-1.2 (test code = 1975-2) Alkaline 124 IU/L 44-121 H Please note Phosphatase (test reference interval code = 6768-6) change

Perf ormed by:
[facility] ([place])

AST [...] Range Interpretation Comments Magnesium (test code = 15367-5) 1.8 mg/dL 1.6-2.3 [facility] Description: Microscopic Tjiuwiopvsa2559-52-57 02:57:00 Test Item Value Reference Range Interpretation Comments WBC (test code = 5821-4) None seen 0-5 RBC (test code = 25747-3) None seen 0-2 Epithelial Cells (non renal) (test None seen 0-10 code = 5787-7) Epithelial Cells (renal) (test code = 00782-8) Casts (test code = 89758-7) None seen None seen Cast Type (test code = 21813-1) Crystals (test code = 5783-6) Crystal Type (test code = 5782-8) Mucus Threads (test code = 8247-9) Bacteria (test code = 5769-5) None seen None seen/Few Yeast (test code = 5822-2) Trichomonas (test code = 5813-1) Comment (test code = 81428-0) [facility] Description: Urate [Mass/volume] in Serum or Ieatdq4333-03-58 02:57:00 Test Item Value Reference Range Interpretation Comments Uric Acid (test 11.5 mg/dL 3.8-8.4 H Therapeutic target for code = 3084-1) gout patients : <6.0

P erformed by:
[facility] [place] ([place])

[facility] Description: Comp. Metabolic Panel (14)2021-01-30 02:57:00 Test Item Value Reference Range Interpretation Comments Glucose (test code 256 mg/dL 65-99 H = 2345-7) BUN (test code = 57 mg/dL 6-24 H 3094-0) Creatinine (test 2.38 mg/dL 0.76-1.27 H code = 2160-0) eGFR If NonAfricn 31 >59 L Am (test code = mL/min/1.73 16614-7) eGFR If Africn Am 36 >59 L In accor dance with (test code = mL/min/1.73 recommendations from 35222-7) the NKF-ASN Tas k force, [facility] is in the process of updating its eG FR calculation to the 2020 CKD-EPI creatinine equa tion that estimates kidney function withou t a race variable.
< br/>Per formed by:
[facility] ([place])

BUN/Creatinine 24 9-20 H Ratio (test code = 3097-3) Sodium (test code = 139 mmol/L 723-437 1473-2) Potassium (test 4.9 mmol/L 3.5-5.2 code = 2823-3) Chloride (test code 100 mmol/L 96-106 = 2075-0) Carbon Dioxide, 23 mmol/L 20-29 Total (test code = 2027-) Calcium (test code 9.0 mg/dL 8.7-10.2 = 50460-5) Protein, Total 6.5 g/dL 6.0-8.5 (test code = 2885-2) Albumin (test code 3.4 g/dL 4.0-5.0 L = 1751-7) Globulin, Total 3.1 g/dL 1.5-4.5 (test code = 89963-4) A/G Ratio (test 1.1 1.2-2.2 L code = 1759-0) Bilirubin, Total 0.4 mg/dL 0.0-1.2 (test code = 1975-2) Alkaline 124 IU/L 44-121 H Please note Phosphatase (test reference interval code = 6768-6) change

Perf ormed by:
[facility] ([place])

AST [...] Range Interpretation Comments Magnesium (test code = 32369-0) 1.8 mg/dL 1.6-2.3 [facility] Description: Microscopic Jihfnbidwzt5818-75-80 02:57:00 Test Item Value Reference Range Interpretation Comments WBC (test code = 5821-4) None seen 0-5 RBC (test code = 19507-3) None seen 0-2 Epithelial Cells (non renal) (test None seen 0-10 code = 5787-7) Epithelial Cells (renal) (test code = 05237-8) Casts (test code = 60648-1) None seen None seen Cast Type (test code = 25508-1) Crystals (test code = 5783-6) Crystal Type (test code = 5782-8) Mucus Threads (test code = 8247-9) Bacteria (test code = 5769-5) None seen None seen/Few Yeast (test code = 5822-2) Trichomonas (test code = 5813-1) Comment (test code = 35674-6) [facility] Description: Urate [Mass/volume] in Serum or Ofuoir3573-18-40 02:57:00 Test Item Value Reference Range Interpretation Comments Uric Acid (test 11.5 mg/dL 3.8-8.4 H Therapeutic target for code = 3084-1) gout patients : <6.0

P erformed by:
[facility] ([place])

[facility] Description: Comp. Metabolic Panel (14)2021-01-30 02:57:00 Test Item Value Reference Range Interpretation Comments Glucose (test code 256 mg/dL 65-99 H = 2345-7) BUN (test code = 57 mg/dL 6-24 H 3094-0) Creatinine (test 2.38 mg/dL 0.76-1.27 H code = 2160-0) eGFR If NonAfricn 31 >59 L Am (test code = mL/min/1.73 83512-4) eGFR If Africn Am 36 >59 L In accor dance with (test code = mL/min/1.73 recommendations from 93357-3) the NKF-ASN Tas k force, [facility] is in the process of updating its eG FR calculation to the 2020 CKD-EPI creatinine equa tion that estimates kidney function withou t a race variable.
< br/>Per formed by:
[facility] ([place])

BUN/Creatinine 24 9-20 H Ratio (test code = 3097-3) Sodium (test code = 139 mmol/L 406-370 3928-2) Potassium (test 4.9 mmol/L 3.5-5.2 code = 2823-3) Chloride (test code 100 mmol/L 96-106 = 2075-0) Carbon Dioxide, 23 mmol/L 20-29 Total (test code = 2027-) Calcium (test code 9.0 mg/dL 8.7-10.2 = 03900-5) Protein, Total 6.5 g/dL 6.0-8.5 (test code = 2885-2) Albumin (test code 3.4 g/dL 4.0-5.0 L = 1751-7) Globulin, Total 3.1 g/dL 1.5-4.5 (test code = 99374-2) A/G Ratio (test 1.1 1.2-2.2 L code = 1759-0) Bilirubin, Total 0.4 mg/dL 0.0-1.2 (test code = 1975-2) Alkaline 124 IU/L 44-121 H Please note Phosphatase (test reference interval code = 6768-6) change

Perf ormed by:
[facility] ([place])

AST [...] Range Interpretation Comments Magnesium (test code = 68338-4) 1.8 mg/dL 1.6-2.3 [facility] Description: Microscopic Jalnkypuyay2631-03-37 02:57:00 Test Item Value Reference Range Interpretation Comments WBC (test code = 5821-4) None seen 0-5 RBC (test code = 22254-2) None seen 0-2 Epithelial Cells (non renal) (test None seen 0-10 code = 5787-7) Epithelial Cells (renal) (test code = 15112-2) Casts (test code = 51149-6) None seen None seen Cast Type (test code = 95694-2) Crystals (test code = 5783-6) Crystal Type (test code = 5782-8) Mucus Threads (test code = 8247-9) Bacteria (test code = 5769-5) None seen None seen/Few Yeast (test code = 5822-2) Trichomonas (test code = 5813-1) Comment (test code = 23733-5) [facility] Description: Urate [Mass/volume] in Serum or Nwwydb2570-92-13 02:57:00 Test Item Value Reference Range Interpretation Comments Uric Acid (test 11.5 mg/dL 3.8-8.4 H Therapeutic target for code = 3084-1) gout patients : <6.0

P erformed by:
[facility] ([place])

[facility] Description: Comp. Metabolic Panel (14)2021-01-30 02:57:00 Test Item Value Reference Range Interpretation Comments Glucose (test code 256 mg/dL 65-99 H = 2345-7) BUN (test code = 57 mg/dL 6-24 H 3094-0) Creatinine (test 2.38 mg/dL 0.76-1.27 H code = 2160-0) eGFR If NonAfricn 31 >59 L Am (test code = mL/min/1.73 55835-6) eGFR If Africn Am 36 >59 L In accor dance with (test code = mL/min/1.73 recommendations from 87433-4) the NKF-ASN Tas k force, [facility] is in the process of updating its eG FR calculation to the 2020 CKD-EPI creatinine equa tion that estimates kidney function withou t a race variable.
< br/>Per formed by:
[facility] ([place])

BUN/Creatinine 24 9-20 H Ratio (test code = 3097-3) Sodium (test code = 139 mmol/L 676-770 0319-2) Potassium (test 4.9 mmol/L 3.5-5.2 code = 2823-3) Chloride (test code 100 mmol/L 96-106 = 2075-0) Carbon Dioxide, 23 mmol/L 20-29 Total (test code = 2027-) Calcium (test code 9.0 mg/dL 8.7-10.2 = 15742-1) Protein, Total 6.5 g/dL 6.0-8.5 (test code = 2885-2) Albumin (test code 3.4 g/dL 4.0-5.0 L = 1751-7) Globulin, Total 3.1 g/dL 1.5-4.5 (test code = 62604-9) A/G Ratio (test 1.1 1.2-2.2 L code = 1759-0) Bilirubin, Total 0.4 mg/dL 0.0-1.2 (test code = 1974-2) Alkaline 124 IU/L 44-121 H Please note Phosphatase (test reference interval code = 6768-6) change

Perf ormed by:
[facility] ([place])

AST [...] Range Interpretation Comments Magnesium (test code = 83392-2) 1.8 mg/dL 1.6-2.3 [facility] Description: Microscopic Erqhrdizhbf5429-47-31 02:57:00 Test Item Value Reference Range Interpretation Comments WBC (test code = 5821-4) None seen 0-5 RBC (test code = 13119-4) None seen 0-2 Epithelial Cells (non renal) (test None seen 0-10 code = 5787-7) Epithelial Cells (renal) (test code = 11113-5) Casts (test code = 38001-6) None seen None seen Cast Type (test code = 51455-4) Crystals (test code = 5783-6) Crystal Type (test code = 5782-8) Mucus Threads (test code = 8247-9) Bacteria (test code = 5769-5) None seen None seen/Few Yeast (test code = 5822-2) Trichomonas (test code = 5813-1) Comment (test code = 44067-9) [facility] Description: Urate [Mass/volume] in Serum or Adwpam9960-47-22 02:57:00 Test Item Value Reference Range Interpretation Comments Uric Acid (test 11.5 mg/dL 3.8-8.4 H Therapeutic target for code = 3084-1) gout patients : <6.0

P erformed by:
[facility] ([place])

[facility] Description: Comp. Metabolic Panel (14)2021-01-30 02:57:00 Test Item Value Reference Range Interpretation Comments Glucose (test code 256 mg/dL 65-99 H = 2345-7) BUN (test code = 57 mg/dL 6-24 H 3094-0) Creatinine (test 2.38 mg/dL 0.76-1.27 H code = 2160-0) eGFR If NonAfricn 31 >59 L Am (test code = mL/min/1.73 72739-2) eGFR If Africn Am 36 >59 L In accor dance with (test code = mL/min/1.73 recommendations from 85883-7) the NKF-ASN Tas k force, [facility] is in the process of updating its eG FR calculation to the 2021 CKD-EPI creatinine equa tion that estimates kidney function withou t a race variable.
< br/>Per formed by:
[facility] ([place])

BUN/Creatinine 24 9-20 H Ratio (test code = 3097-3) Sodium (test code = 139 mmol/L 285-226 9512-2) Potassium (test 4.9 mmol/L 3.5-5.2 code = 2823-3) Chloride (test code 100 mmol/L 96-106 = 2075-0) Carbon Dioxide, 23 mmol/L 20-29 Total (test code = 2027-9) Calcium (test code 9.0 mg/dL 8.7-10.2 = 56775-8) Protein, Total 6.5 g/dL 6.0-8.5 (test code = 2885-2) Albumin (test code 3.4 g/dL 4.0-5.0 L = 1751-7) Globulin, Total 3.1 g/dL 1.5-4.5 (test code = 25295-3) A/G Ratio (test 1.1 1.2-2.2 L code = 1759-0) Bilirubin, Total 0.4 mg/dL 0.0-1.2 (test code = 1975-2) Alkaline 124 IU/L 44-121 H Please note Phosphatase (test reference interval code = 6768-6) change

Perf ormed by:
[facility] ([place])

AST [...] Range Interpretation Comments Magnesium (test code = 98693-7) 1.8 mg/dL 1.6-2.3 [facility] Description: Microscopic Dpptistshsx0714-19-12 02:57:00 Test Item Value Reference Range Interpretation Comments WBC (test code = 5821-4) None seen 0-5 RBC (test code = 87082-5) None seen 0-2 Epithelial Cells (non renal) (test None seen 0-10 code = 5787-7) Epithelial Cells (renal) (test code = 84273-6) Casts (test code = 29210-2) None seen None seen Cast Type (test code = 09135-4) Crystals (test code = 5783-6) Crystal Type (test code = 5782-8) Mucus Threads (test code = 8247-9) Bacteria (test code = 5769-5) None seen None seen/Few Yeast (test code = 5822-2) Trichomonas (test code = 5813-1) Comment (test code = 76752-4) [facility] Description: Urate [Mass/volume] in Serum or Ppiqzr7522-55-79 02:57:00 Test Item Value Reference Range Interpretation Comments Uric Acid (test 11.5 mg/dL 3.8-8.4 H Therapeutic target for code = 3084-1) gout patients : <6.0

P erformed by:
[facility] ([place])

[facility] Description: Comp. Metabolic Panel (14)2021-01-30 02:57:00 Test Item Value Reference Range Interpretation Comments Glucose (test code 256 mg/dL 65-99 H = 2345-7) BUN (test code = 57 mg/dL 6-24 H 3094-0) Creatinine (test 2.38 mg/dL 0.76-1.27 H code = 2160-0) eGFR If NonAfricn 31 >59 L Am (test code = mL/min/1.73 03633-2) eGFR If Africn Am 36 >59 L In accor dance with (test code = mL/min/1.73 recommendations from 84340-3) the NKF-ASN Tas k force, [facility] is in the process of updating its eG FR calculation to the 2020 CKD-EPI creatinine equa tion that estimates kidney function withou t a race variable.
< br/>Per formed by:
[facility] ([place])

BUN/Creatinine 24 9-20 H Ratio (test code = 3097-3) Sodium (test code = 139 mmol/L 289-116 1488-2) Potassium (test 4.9 mmol/L 3.5-5.2 code = 2823-3) Chloride (test code 100 mmol/L 96-106 = 2075-0) Carbon Dioxide, 23 mmol/L 20-29 Total (test code = 2027-) Calcium (test code 9.0 mg/dL 8.7-10.2 = 15583-4) Protein, Total 6.5 g/dL 6.0-8.5 (test code = 2885-2) Albumin (test code 3.4 g/dL 4.0-5.0 L = 1751-7) Globulin, Total 3.1 g/dL 1.5-4.5 (test code = 06752-9) A/G Ratio (test 1.1 1.2-2.2 L code = 1759-0) Bilirubin, Total 0.4 mg/dL 0.0-1.2 (test code = 1974-2) Alkaline 124 IU/L 44-121 H Please note Phosphatase (test reference interval code = 6768-6) change

Perf ormed by:
[facility] ([place])

AST [...] Range Interpretation Comments Magnesium (test code = 11913-9) 1.8 mg/dL 1.6-2.3 [facility] Description: Microscopic Xqpmhxuogoj8785-59-35 02:57:00 Test Item Value Reference Range Interpretation Comments WBC (test code = 5821-4) None seen 0-5 RBC (test code = 79821-1) None seen 0-2 Epithelial Cells (non renal) (test None seen 0-10 code = 5787-7) Epithelial Cells (renal) (test code = 76518-5) Casts (test code = 19324-8) None seen None seen Cast Type (test code = 61650-0) Crystals (test code = 5783-6) Crystal Type (test code = 5782-8) Mucus Threads (test code = 8247-9) Bacteria (test code = 5769-5) None seen None seen/Few Yeast (test code = 5822-2) Trichomonas (test code = 5813-1) Comment (test code = 82181-4) [facility] Description: Urate [Mass/volume] in Serum or Rebluv9001-85-84 02:57:00 Test Item Value Reference Range Interpretation Comments Uric Acid (test 11.5 mg/dL 3.8-8.4 H Therapeutic target for code = 3084-1) gout patients : <6.0

P erformed by:
[facility] ([place])

[facility] Description: Comp. Metabolic Panel (14)2021-01-30 02:57:00 Test Item Value Reference Range Interpretation Comments Glucose (test code 256 mg/dL 65-99 H = 2345-7) BUN (test code = 57 mg/dL 6-24 H 3094-0) Creatinine (test 2.38 mg/dL 0.76-1.27 H code = 2160-0) eGFR If NonAfricn 31 >59 L Am (test code = mL/min/1.73 75306-6) eGFR If Africn Am 36 >59 L In accor dance with (test code = mL/min/1.73 recommendations from 35974-3) the NKF-ASN Tas k force, [facility] is in the process of updating its eG FR calculation to the 2020 CKD-EPI creatinine equa tion that estimates kidney function withou t a race variable.
< br/>Per formed by:
[facility] ([place])

BUN/Creatinine 24 9-20 H Ratio (test code = 3097-3) Sodium (test code = 139 mmol/L 909-842 6585-2) Potassium (test 4.9 mmol/L 3.5-5.2 code = 2823-3) Chloride (test code 100 mmol/L 96-106 = 2075-0) Carbon Dioxide, 23 mmol/L 20-29 Total (test code = 2027-) Calcium (test code 9.0 mg/dL 8.7-10.2 = 28481-1) Protein, Total 6.5 g/dL 6.0-8.5 (test code = 2885-2) Albumin (test code 3.4 g/dL 4.0-5.0 L = 1751-7) Globulin, Total 3.1 g/dL 1.5-4.5 (test code = 74315-5) A/G Ratio (test 1.1 1.2-2.2 L code = 1759-0) Bilirubin, Total 0.4 mg/dL 0.0-1.2 (test code = 1975-2) Alkaline 124 IU/L 44-121 H Please note Phosphatase (test reference interval code = 6768-6) change

Perf ormed by:
[facility] ([place])

AST [...] Range Interpretation Comments Magnesium (test code = 31192-5) 1.8 mg/dL 1.6-2.3 [facility] Description: Microscopic Pqeoakswhwk1726-91-09 02:57:00 Test Item Value Reference Range Interpretation Comments WBC (test code = 5821-4) None seen 0-5 RBC (test code = 82317-1) None seen 0-2 Epithelial Cells (non renal) (test None seen 0-10 code = 5787-7) Epithelial Cells (renal) (test code = 58766-9) Casts (test code = 07592-1) None seen None seen Cast Type (test code = 64746-7) Crystals (test code = 5783-6) Crystal Type (test code = 5782-8) Mucus Threads (test code = 8247-9) Bacteria (test code = 5769-5) None seen None seen/Few Yeast (test code = 5822-2) Trichomonas (test code = 5813-1) Comment (test code = 63139-1) [facility] Description: Urate [Mass/volume] in Serum or Ykgmhh8637-98-33 02:57:00 Test Item Value Reference Range Interpretation Comments Uric Acid (test 11.5 mg/dL 3.8-8.4 H Therapeuti c target for code = 3084-1) gout patients : <6.0

P erformed by:
[facility] ([place])

[facility] Description: Comp. Metabolic Panel (14)2021-01-30 02:57:00 Test Item Value Reference Range Interpretation Comments Glucose (test code 256 mg/dL 65-99 H = 2345-7) BUN (test code = 57 mg/dL 6-24 H 3094-0) Creatinine (test 2.38 mg/dL 0.76-1.27 H code = 2160-0) eGFR If NonAfricn 31 >59 L Am (test code = mL/min/1.73 51328-0) eGFR If Africn Am 36 >59 L In accor dance with (test code = mL/min/1.73 recommendations from 63924-6) the NKF-ASN Tas k force, [facility] is in the process of updating its eG FR calculation to the 2020 CKD-EPI creatinine equa tion that estimates kidney function withou t a race variable.
< br/>Per formed by:
[facility] ([place])

BUN/Creatinine 24 9-20 H Ratio (test code = 3097-3) Sodium (test code = 139 mmol/L 854-023 8768-2) Potassium (test 4.9 mmol/L 3.5-5.2 code = 2823-3) Chloride (test code 100 mmol/L 96-106 = 2075-0) Carbon Dioxide, 23 mmol/L 20-29 Total (test code = 2027-) Calcium (test code 9.0 mg/dL 8.7-10.2 = 38638-6) Protein, Total 6.5 g/dL 6.0-8.5 (test code = 2885-2) Albumin (test code 3.4 g/dL 4.0-5.0 L = 1751-7) Globulin, Total 3.1 g/dL 1.5-4.5 (test code = 76230-3) A/G Ratio (test 1.1 1.2-2.2 L code = 1759-0) Bilirubin, Total 0.4 mg/dL 0.0-1.2 (test code = 1974-2) Alkaline 124 IU/L 44-121 H Please note Phosphatase (test reference interval code = 6768-6) change

Perf ormed by:
[facility] (HD)

AST [...] Range Interpretation Comments Magnesium (test code = 02221-9) 1.8 mg/dL 1.6-2.3 [facility] Description: Microscopic [id number] 02:57:00 Test Item Value Reference Range Interpretation Comments WBC (test code = 5821-4) None seen 0-5 RBC (test code = 42127-5) None seen 0-2 Epithelial Cells (non renal) (test None seen 0-10 code = 5787-7) Epithelial Cells (renal) (test code = 62893-9) Casts (test code = 05279-4) None seen None seen Cast Type (test code = 73000-0) Crystals (test code = 5783-6) Crystal Type (test code = 5782-8) Mucus Threads (test code = 8247-9) Bacteria (test code = 5769-5) None seen None seen/Few Yeast (test code = 5822-2) Trichomonas (test code = 5813-1) Comment (test code = 92130-1) [facility] Description: Urate [Mass/volume] in Serum or [id number] 02:57:00 Test Item Value Reference Range Interpretation Comments Uric Acid (test 11.5 mg/dL 3.8-8.4 H Therapeutic target for code = 3084-1) gout patients : <6.0

P erformed by:
[facility] (HD)

[facility] Description: Comp. Metabolic Panel (14)2021-01-30 02:57:00 Test Item Value Reference Range Interpretation Comments Glucose (test code 256 mg/dL 65-99 H = 2345-7) BUN (test code = 57 mg/dL 6-24 H 3094-0) Creatinine (test 2.38 mg/dL 0.76-1.27 H code = 2160-0) eGFR If NonAfricn 31 >59 L Am (test code = mL/min/1.73 42391-3) eGFR If Africn Am 36 >59 L In accor dance with (test code = mL/min/1.73 recommendations from 32510-5) the NKF-ASN Tas k force, [facility] is in the process of updating its eG FR calculation to the 2020 CKD-EPI creatinine equa tion that estimates kidney function withou t a race variable.
< br/>Per formed by:
[facility] ([place])

BUN/Creatinine 24 9-20 H Ratio (test code = 3097-3) Sodium (test code = 139 mmol/L 384-504 8683-2) Potassium (test 4.9 mmol/L 3.5-5.2 code = 2823-3) Chloride (test code 100 mmol/L 96-106 = 2075-0) Carbon Dioxide, 23 mmol/L 20-29 Total (test code = 2027-) Calcium (test code 9.0 mg/dL 8.7-10.2 = 99456-0) Protein, Total 6.5 g/dL 6.0-8.5 (test code = 2885-2) Albumin (test code 3.4 g/dL 4.0-5.0 L = 1751-7) Globulin, Total 3.1 g/dL 1.5-4.5 (test code = 15013-9) A/G Ratio (test 1.1 1.2-2.2 L code = 1759-0) Bilirubin, Total 0.4 mg/dL 0.0-1.2 (test code = 1975-2) Alkaline 124 IU/L 44-121 H Please note Phosphatase (test reference interval code = 6768-6) change

Perf ormed by:
[facility] ([place])

AST [...] Range Interpretation Comments Magnesium (test code = 51183-0) 1.8 mg/dL 1.6-2.3 [facility] Description: Microscopic [id number] 02:57:00 Test Item Value Reference Range Interpretation Comments WBC (test code = 5821-4) None seen 0-5 RBC (test code = 60561-3) None seen 0-2 Epithelial Cells (non renal) (test None seen 0-10 code = 5787-7) Epithelial Cells (renal) (test code = 91839-8) Casts (test code = 35280-3) None seen None seen Cast Type (test code = 53356-7) Crystals (test code = 5783-6) Crystal Type (test code = 5782-8) Mucus Threads (test code = 8247-9) Bacteria (test code = 5769-5) None seen None seen/Few Yeast (test code = 5822-2) Trichomonas (test code = 5813-1) Comment (test code = 59609-0) [facility] Description: Urate [Mass/volume] in Serum or [id number] 02:57:00 Test Item Value Reference Range Interpretation Comments Uric Acid (test 11.5 mg/dL 3.8-8.4 H Therapeutic target for code = 3084-1) gout patients : <6.0

P erformed by:
[facility] ([place])

[facility] Description: Comp. Metabolic Panel (14)2021-01-30 02:57:00 Test Item Value Reference Range Interpretation Comments Glucose (test code 256 mg/dL 65-99 H = 2345-7) BUN (test code = 57 mg/dL 6-24 H 3094-0) Creatinine (test 2.38 mg/dL 0.76-1.27 H code = 2160-0) eGFR If NonAfricn 31 >59 L Am (test code = mL/min/1.73 10702-3) eGFR If Africn Am 36 >59 L In accor dance with (test code = mL/min/1.73 recommendations from 70340-6) the NKF-ASN Tas k force, [facility] is in the process of updating its eG FR calculation to the 2020 CKD-EPI creatinine equa tion that estimates kidney function withou t a race variable.
< br/>Per formed by:
[facility] ([place])

BUN/Creatinine 24 9-20 H Ratio (test code = 3097-3) Sodium (test code = 139 mmol/L 746-852 1207-2) Potassium (test 4.9 mmol/L 3.5-5.2 code = 2823-3) Chloride (test code 100 mmol/L 96-106 = 2075-0) Carbon Dioxide, 23 mmol/L 20-29 Total (test code = 2027-9) Calcium (test code 9.0 mg/dL 8.7-10.2 = 65919-5) Protein, Total 6.5 g/dL 6.0-8.5 (test code = 2885-2) Albumin (test code 3.4 g/dL 4.0-5.0 L = 1751-7) Globulin, Total 3.1 g/dL 1.5-4.5 (test code = 84480-1) A/G Ratio (test 1.1 1.2-2.2 L code = 1759-0) Bilirubin, Total 0.4 mg/dL 0.0-1.2 (test code = 1974-2) Alkaline 124 IU/L 44-121 H Please note Phosphatase (test reference interval code = 6768-6) change

Perf ormed by:
[facility] ([place])

AST [...] Range Interpretation Comments Magnesium (test code = 69365-6) 1.8 mg/dL 1.6-2.3 [facility] Description: Microscopic [id number] 02:57:00 Test Item Value Reference Range Interpretation Comments WBC (test code = 5821-4) None seen 0-5 RBC (test code = 81734-0) None seen 0-2 Epithelial Cells (non renal) (test None seen 0-10 code = 5787-7) Epithelial Cells (renal) (test code = 80354-9) Casts (test code = 08021-7) None seen None seen Cast Type (test code = 46098-5) Crystals (test code = 5783-6) Crystal Type (test code = 5782-8) Mucus Threads (test code = 8247-9) Bacteria (test code = 5769-5) None seen None seen/Few Yeast (test code = 5822-2) Trichomonas (test code = 5813-1) Comment (test code = 23306-1) [facility] Description: Urate [Mass/volume] in Serum or [id number] 02:57:00 Test Item Value Reference Range Interpretation Comments Uric Acid (test 11.5 mg/dL 3.8-8.4 H Therapeuti c target for code = 3084-1) gout patients : <6.0

P erformed by:
[facility] ([place])

[facility] Description: Comp. Metabolic Panel (14)2021-01-30 02:57:00 Test Item Value Reference Range Interpretation Comments Glucose (test code 256 mg/dL 65-99 H = 2345-7) BUN (test code = 57 mg/dL 6-24 H 3094-0) Creatinine (test 2.38 mg/dL 0.76-1.27 H code = 2160-0) eGFR If NonAfricn 31 >59 L Am (test code = mL/min/1.73 41132-3) eGFR If Africn Am 36 >59 L In accor dance with (test code = mL/min/1.73 recommendations from 93157-3) the NKF-ASN Tas k force, [facility] is in the process of updating its eG FR calculation to the 2020 CKD-EPI creatinine equa tion that estimates kidney function withou t a race variable.
< br/>Per formed by:
[facility] ([place])

BUN/Creatinine 24 9-20 H Ratio (test code = 3097-3) Sodium (test code = 139 mmol/L 238-708 8845-2) Potassium (test 4.9 mmol/L 3.5-5.2 code = 2823-3) Chloride (test code 100 mmol/L 96-106 = 2075-0) Carbon Dioxide, 23 mmol/L 20-29 Total (test code = 2027-9) Calcium (test code 9.0 mg/dL 8.7-10.2 = 62510-2) Protein, Total 6.5 g/dL 6.0-8.5 (test code = 2885-2) Albumin (test code 3.4 g/dL 4.0-5.0 L = 1751-7) Globulin, Total 3.1 g/dL 1.5-4.5 (test code = 59559-3) A/G Ratio (test 1.1 1.2-2.2 L code = 1759-0) Bilirubin, Total 0.4 mg/dL 0.0-1.2 (test code = 1975-2) Alkaline 124 IU/L 44-121 H Please note Phosphatase (test reference interval code = 6768-6) change

Perf ormed by:
[facility] ([place])

AST [...] Range Interpretation Comments Magnesium (test code = 52704-7) 1.8 mg/dL 1.6-2.3 [facility] Description: Microscopic Ureovldvopv0831-25-84 02:57:00 Test Item Value Reference Range Interpretation Comments WBC (test code = 5821-4) None seen 0-5 RBC (test code = 77999-4) None seen 0-2 Epithelial Cells (non renal) (test None seen 0-10 code = 5787-7) Epithelial Cells (renal) (test code = 72031-4) Casts (test code = 15901-0) None seen None seen Cast Type (test code = 28159-1) Crystals (test code = 5783-6) Crystal Type (test code = 5782-8) Mucus Threads (test code = 8247-9) Bacteria (test code = 5769-5) None seen None seen/Few Yeast (test code = 5822-2) Trichomonas (test code = 5813-1) Comment (test code = 70855-6) [facility] Description: Urate [Mass/volume] in Serum or [id number] 02:57:00 Test Item Value Reference Range Interpretation Comments Uric Acid (test 11.5 mg/dL 3.8-8.4 H Therapeutic target for code = 3084-1) gout patients : <6.0

P erformed by:
[facility] ([place])

[facility] Description: Comp. Metabolic Panel (14)2021-01-30 02:57:00 Test Item Value Reference Range Interpretation Comments Glucose (test code 256 mg/dL 65-99 H = 2345-7) BUN (test code = 57 mg/dL 6-24 H 3094-0) Creatinine (test 2.38 mg/dL 0.76-1.27 H code = 2160-0) eGFR If NonAfricn 31 >59 L Am (test code = mL/min/1.73 89507-0) eGFR If Africn Am 36 >59 L In accor dance with (test code = mL/min/1.73 recommendations from 84489-0) the NKF-ASN Tas k force, [facility] is in the process of updating its eG FR calculation to the 2020 CKD-EPI creatinine equa tion that estimates kidney function withou t a race variable.
< br/>Per formed by:
[facility] ([place])

BUN/Creatinine 24 9-20 H Ratio (test code = 3097-3) Sodium (test code = 139 mmol/L 829-271 2067-2) Potassium (test 4.9 mmol/L 3.5-5.2 code = 2823-3) Chloride (test code 100 mmol/L 96-106 = 2075-0) Carbon Dioxide, 23 mmol/L 20-29 Total (test code = 2027-) Calcium (test code 9.0 mg/dL 8.7-10.2 = 10279-3) Protein, Total 6.5 g/dL 6.0-8.5 (test code = 2885-2) Albumin (test code 3.4 g/dL 4.0-5.0 L = 1751-7) Globulin, Total 3.1 g/dL 1.5-4.5 (test code = 23025-0) A/G Ratio (test 1.1 1.2-2.2 L code = 1759-0) Bilirubin, Total 0.4 mg/dL 0.0-1.2 (test code = 1974-2) Alkaline 124 IU/L 44-121 H Please note Phosphatase (test reference interval code = 6768-6) change

Perf ormed by:
[facility] ([place])

AST [...] Range Interpretation Comments Magnesium (test code = 19831-7) 1.8 mg/dL 1.6-2.3 [facility] Description: Microscopic Qygnohgcobc7578-13-81 02:57:00 Test Item Value Reference Range Interpretation Comments WBC (test code = 5821-4) None seen 0-5 RBC (test code = 14613-4) None seen 0-2 Epithelial Cells (non renal) (test None seen 0-10 code = 5787-7) Epithelial Cells (renal) (test code = 16011-0) Casts (test code = 86499-8) None seen None seen Cast Type (test code = 48989-4) Crystals (test code = 5783-6) Crystal Type (test code = 5782-8) Mucus Threads (test code = 8247-9) Bacteria (test code = 5769-5) None seen None seen/Few Yeast (test code = 5822-2) Trichomonas (test code = 5813-1) Comment (test code = 89607-9) [facility] Description: Urate [Mass/volume] in Serum or [id number] 02:57:00 Test Item Value Reference Range Interpretation Comments Uric Acid (test 11.5 mg/dL 3.8-8.4 H Therapeutic target for code = 3084-1) gout patients : <6.0

P erformed by:
[facility] ()

[facility] Description: Urinalysis, Dwiyzarh9962-94-03 02:24:00 Test Item Value Reference Range Interpretation Comments Specific [place] (test 1.017 1.005-1.030 code = 2965-2) pH (test code = 5.5 5.0-7.5 5803-2) Urine-Color (test code Yellow Yellow = 5778-6) Appearance (test code Clear Clear = 5767-9) WBC Esterase (test Negative Negative code = 5799-2) Protein (test code = 4+ Negative/Trace A 80559-0) Glucose (test code = 1+ Negative A 2349-9) Ketones (test code = Negative Negative 2514-8) Occult Blood (test Trace Negative A code = 5794-3) Bilirubin (test code = Negative Negative 5770-3) Urobilinogen,Semi-Qn 0.2 mg/dL 0.2-1.0 (test code = 25344-3) Nitrite, Urine (test Negative Negative code = 5802-4) Microscopic See below: Microscopic was Examination (test code indic ated and was = 66558-3) performed.

P erformed by:
[facility] ([place])

[facility] Description: Urinalysis, [id number] 02:24:00 Test Item Value Reference Range Interpretation Comments Specific [place] (test 1.017 1.005-1.030 code = 2965-2) pH (test code = 5.5 5.0-7.5 5803-2) Urine-Color (test code Yellow Yellow = 5778-6) Appearance (test code Clear Clear = 5767-9) WBC Esterase (test Negative Negative code = 5799-2) Protein (test code = 4+ Negative/Trace A 67481-0) Glucose (test code = 1+ Negative A 2349-9) Ketones (test code = Negative Negative 2514-8) Occult Blood (test Trace Negative A code = 5794-3) Bilirubin (test code = Negative Negative 5770-3) Urobilinogen,Semi-Qn 0.2 mg/dL 0.2-1.0 (test code = 26792-0) Nitrite, Urine (test Negative Negative code = 5802-4) Microscopic See below: Microscopic was Examination (test code indic ated and was = 01025-3) performed.

P erformed by:
[facility] ()

[facility] Description: Urinalysis, Tzenmriy3870-12-27 02:24:00 Test Item Value Reference Range Interpretation Comments Specific [place] (test 1.017 1.005-1.030 code = 2965-2) pH (test code = 5.5 5.0-7.5 5803-2) Urine-Color (test code Yellow Yellow = 5778-6) Appearance (test code Clear Clear = 5767-9) WBC Esterase (test Negative Negative code = 5799-2) Protein (test code = 4+ Negative/Trace A 03309-1) Glucose (test code = 1+ Negative A 2349-9) Ketones (test code = Negative Negative 2514-8) Occult Blood (test Trace Negative A code = 5794-3) Bilirubin (test code = Negative Negative 5770-3) Urobilinogen,Semi-Qn 0.2 mg/dL 0.2-1.0 (test code = 35617-5) Nitrite, Urine (test Negative Negative code = 5802-4) Microscopic See below: Microscopic was Examination (test code indic ated and was = 04360-9) performed.

P erformed by:
[facility] [place] ()

[facility] Description: Urinalysis, [id number] 02:24:00 Test Item Value Reference Range Interpretation Comments Specific [place] (test 1.017 1.005-1.030 code = 2965-2) pH (test code = 5.5 5.0-7.5 5803-2) Urine-Color (test code Yellow Yellow = 5778-6) Appearance (test code Clear Clear = 5767-9) WBC Esterase (test Negative Negative code = 5799-2) Protein (test code = 4+ Negative/Trace A 98298-4) Glucose (test code = 1+ Negative A 2349-9) Ketones (test code = Negative Negative 2514-8) Occult Blood (test Trace Negative A code = 5794-3) Bilirubin (test code = Negative Negative 5770-3) Urobilinogen,Semi-Qn 0.2 mg/dL 0.2-1.0 (test code = 61007-0) Nitrite, Urine (test Negative Negative code = 5802-4) Microscopic See below: Microscopic was Examination (test code indic ated and was = 95804-0) performed.

P erformed by:
[facility] [place] ()

[facility] Description: Urinalysis, [id number] 02:24:00 Test Item Value Reference Range Interpretation Comments Specific [place] (test 1.017 1.005-1.030 code = 2965-2) pH (test code = 5.5 5.0-7.5 5803-2) Urine-Color (test code Yellow Yellow = 5778-6) Appearance (test code Clear Clear = 5767-9) WBC Esterase (test Negative Negative code = 5799-2) Protein (test code = 4+ Negative/Trace A 69810-1) Glucose (test code = 1+ Negative A 2349-9) Ketones (test code = Negative Negative 2514-8) Occult Blood (test Trace Negative A code = 5794-3) Bilirubin (test code = Negative Negative 5770-3) Urobilinogen,Semi-Qn 0.2 mg/dL 0.2-1.0 (test code = 48861-2) Nitrite, Urine (test Negative Negative code = 5802-4) Microscopic See below: Microscopic was Examination (test code indic ated and was = 50777-1) performed.

P erformed by:
[facility] [place] ()

[facility]: Urinalysis, [id number] 02:24:00 Test Item Value Reference Range Interpretation Comments Specific [place] (test 1.017 1.005-1.030 code = 2965-2) pH (test code = 5.5 5.0-7.5 5803-2) Urine-Color (test code Yellow Yellow = 5778-6) Appearance (test code Clear Clear = 5767-9) WBC Esterase (test Negative Negative code = 5799-2) Protein (test code = 4+ Negative/Trace A 10055-7) Glucose (test code = 1+ Negative A 2349-9) Ketones (test code = Negative Negative 2514-8) Occult Blood (test Trace Negative A code = 5794-3) Bilirubin (test code = Negative Negative 5770-3) Urobilinogen,Semi-Qn 0.2 mg/dL 0.2-1.0 (test code = 76768-2) Nitrite, Urine (test Negative Negative code = 5802-4) Microscopic See below: Microscopic was Examination (test code indic ated and was = 94130-2) performed.

P erformed by:
[facility] [place] ()

[facility] Description: Urinalysis, [id number] 02:24:00 Test Item Value Reference Range Interpretation Comments Specific [place] (test 1.017 1.005-1.030 code = 2965-2) pH (test code = 5.5 5.0-7.5 5803-2) Urine-Color (test code Yellow Yellow = 5778-6) Appearance (test code Clear Clear = 5767-9) WBC Esterase (test Negative Negative code = 5799-2) Protein (test code = 4+ Negative/Trace A 49092-6) Glucose (test code = 1+ Negative A 2349-9) Ketones (test code = Negative Negative 2514-8) Occult Blood (test Trace Negative A code = 5794-3) Bilirubin (test code = Negative Negative 5770-3) Urobilinogen,Semi-Qn 0.2 mg/dL 0.2-1.0 (test code = 99327-1) Nitrite, Urine (test Negative Negative code = 5802-4) Microscopic See below: Microscopic was Examination (test code indic ated and was = 78427-5) performed.

P erformed by:
[employer] ()

[facility] Description: Urinalysis, [id number] 02:24:00 Test Item Value Reference Range Interpretation Comments Specific [place] (test 1.017 1.005-1.030 code = 2965-2) pH (test code = 5.5 5.0-7.5 5803-2) Urine-Color (test code Yellow Yellow = 5778-6) Appearance (test code Clear Clear = 5767-9) WBC Esterase (test Negative Negative code = 5799-2) Protein (test code = 4+ Negative/Trace A 45409-5) Glucose (test code = 1+ Negative A 2349-9) Ketones (test code = Negative Negative 2514-8) Occult Blood (test Trace Negative A code = 5794-3) Bilirubin (test code = Negative Negative 5770-3) Urobilinogen,Semi-Qn 0.2 mg/dL 0.2-1.0 (test code = 76951-6) Nitrite, Urine (test Negative Negative code = 5802-4) Microscopic See below: Microscopic was Examination (test code indic ated and was = 03341-6) performed.

P erformed by:
[facility] ()

[facility] Description: Urinalysis, [id number] 02:24:00 Test Item Value Reference Range Interpretation Comments Specific [place] (test 1.017 1.005-1.030 code = 2965-2) pH (test code = 5.5 5.0-7.5 5803-2) Urine-Color (test code Yellow Yellow = 5778-6) Appearance (test code Clear Clear = 5767-9) WBC Esterase (test Negative Negative code = 5799-2) Protein (test code = 4+ Negative/Trace A 30340-6) Glucose (test code = 1+ Negative A 2349-9) Ketones (test code = Negative Negative 2514-8) Occult Blood (test Trace Negative A code = 5794-3) Bilirubin (test code = Negative Negative 5770-3) Urobilinogen,Semi-Qn 0.2 mg/dL 0.2-1.0 (test code = 38656-7) Nitrite, Urine (test Negative Negative code = 5802-4) Microscopic See below: Microscopic was Examination (test code indic ated and was = 81132-5) performed.

P erformed by:
[employer] [facility] ()

[facility] Description: Urinalysis, [id number] 02:24:00 Test Item Value Reference Range Interpretation Comments Specific [place] (test 1.017 1.005-1.030 code = 2965-2) pH (test code = 5.5 5.0-7.5 5803-2) Urine-Color (test code Yellow Yellow = 5778-6) Appearance (test code Clear Clear = 5767-9) WBC Esterase (test Negative Negative code = 5799-2) Protein (test code = 4+ Negative/Trace A 58377-6) Glucose (test code = 1+ Negative A 2349-9) Ketones (test code = Negative Negative 2514-8) Occult Blood (test Trace Negative A code = 5794-3) Bilirubin (test code = Negative Negative 5770-3) Urobilinogen,Semi-Qn 0.2 mg/dL 0.2-1.0 (test code = 50731-3) Nitrite, Urine (test Negative Negative code = 5802-4) Microscopic See below: Microscopic was Examination (test code indic ated and was = 86180-2) performed.

P erformed by:
[employer] [facility] ()

[facility] Description: Urinalysis, [id number] 02:24:00 Test Item Value Reference Range Interpretation Comments Specific [place] (test 1.017 1.005-1.030 code = 2965-2) pH (test code = 5.5 5.0-7.5 5803-2) Urine-Color (test code Yellow Yellow = 5778-6) Appearance (test code Clear Clear = 5767-9) WBC Esterase (test Negative Negative code = 5799-2) Protein (test code = 4+ Negative/Trace A 38868-8) Glucose (test code = 1+ Negative A 2349-9) Ketones (test code = Negative Negative 2514-8) Occult Blood (test Trace Negative A code = 5794-3) Bilirubin (test code = Negative Negative 5770-3) Urobilinogen,Semi-Qn 0.2 mg/dL 0.2-1.0 (test code = 42117-2) Nitrite, Urine (test Negative Negative code = 5802-4) Microscopic See below: Microscopic was Examination (test code indic ated and was = 13191-1) performed.

P erformed by:
[facility] ()

[facility] Description: Urinalysis, [id number] 02:24:00 Test Item Value Reference Range Interpretation Comments Specific [place] (test 1.017 1.005-1.030 code = 2965-2) pH (test code = 5.5 5.0-7.5 5803-2) Urine-Color (test code Yellow Yellow = 5778-6) Appearance (test code Clear Clear = 5767-9) WBC Esterase (test Negative Negative code = 5799-2) Protein (test code = 4+ Negative/Trace A 86803-7) Glucose (test code = 1+ Negative A 2349-9) Ketones (test code = Negative Negative 2514-8) Occult Blood (test Trace Negative A code = 5794-3) Bilirubin (test code = Negative Negative 5770-3) Urobilinogen,Semi-Qn 0.2 mg/dL 0.2-1.0 (test code = 19298-0) Nitrite, Urine (test Negative Negative code = 5802-4) Microscopic See below: Microscopic was Examination (test code indic ated and was = 36559-7) performed.

P erformed by:
[facility] [place] ()

[facility] Description: Urinalysis, [id number] 02:24:00 Test Item Value Reference Range Interpretation Comments Specific [place] (test 1.017 1.005-1.030 code = 2965-2) pH (test code = 5.5 5.0-7.5 5803-2) Urine-Color (test code Yellow Yellow = 5778-6) Appearance (test code Clear Clear = 5767-9) WBC Esterase (test Negative Negative code = 5799-2) Protein (test code = 4+ Negative/Trace A 94600-8) Glucose (test code = 1+ Negative A 2349-9) Ketones (test code = Negative Negative 2514-8) Occult Blood (test Trace Negative A code = 5794-3) Bilirubin (test code = Negative Negative 5770-3) Urobilinogen,Semi-Qn 0.2 mg/dL 0.2-1.0 (test code = 91042-0) Nitrite, Urine (test Negative Negative code = 5802-4) Microscopic See below: Microscopic was Examination (test code indic ated and was = 43146-4) performed.

P erformed by:
[facility] [place] ()

[facility] Description: Urinalysis, [id number] 02:24:00 Test Item Value Reference Range Interpretation Comments Specific [place] (test 1.017 1.005-1.030 code = 2965-2) pH (test code = 5.5 5.0-7.5 5803-2) Urine-Color (test code Yellow Yellow = 5778-6) Appearance (test code Clear Clear = 5767-9) WBC Esterase (test Negative Negative code = 5799-2) Protein (test code = 4+ Negative/Trace A 14316-8) Glucose (test code = 1+ Negative A 2349-9) Ketones (test code = Negative Negative 2514-8) Occult Blood (test Trace Negative A code = 5794-3) Bilirubin (test code = Negative Negative 5770-3) Urobilinogen,Semi-Qn 0.2 mg/dL 0.2-1.0 (test code = 85687-0) Nitrite, Urine (test Negative Negative code = 5802-4) Microscopic See below: Microscopic was Examination (test code indic ated and was = 59841-4) performed.

P erformed by:
[facility] [place] ()

[facility] Description: Urinalysis, [id number] 02:24:00 Microscopic Examination[facility] Description: Urinalysis, Complete 2021-01-30 02:24:00Microscopic Examination[facility] Description: Urinalysis, [id number] 02:24:00Microscopic Examination[facility] Description: Urinalysis, [id number] 02:24:00Microscopic Examination [facility] Description: Urinalysis, [id number] 02:24:00 Microscopic Examination[facility] Description: Urinalysis, Complete 2021-01-30 02:24:00Microscopic Examination[facility] Description: Urinalysis, Srzffplz4959-73-83 02:24:00Microscopic Examination[facility] Description: Urinalysis, Noxyvrmz8369-04-25 02:24:00Microscopic Examination [facility] Description: Urinalysis, [id number] 02:24:00 Microscopic Examination[facility] Description: Urinalysis, Complete 2021-01-30 02:24:00Microscopic [facility] Description: Urinalysis, [id number] 02:24:00Microscopic Examination[facility] Description: Urinalysis, [id number] 02:24:00Microscopic Examination [facility] Description: Urinalysis, [id number] 02:24:00 Microscopic Examination[facility] Description: Urinalysis, Complete 2021-01-30 02:24:00Microscopic ExaminationAccess[facility]Panel Description: Natriuretic peptide B [Mass/volume] in Serum or [id number] 13:54:00 Test Item Value Reference Range Interpretation Comments B-Type Natriuretic Peptide (test 427.5 pg/mL 0.0-100.0 H code = 67990-9) [facility] Description: Natriuretic peptide B [Mass/volume] in Serum or [id number] 13:54:00 Test Item Value Reference Range Interpretation Comments B-Type Natriuretic Peptide (test 427.5 pg/mL 0.0-100.0 H code = 49091-6) [facility] Description: Natriuretic peptide B [Mass/volume] in Serum or [id number] 13:54:00 Test Item Value Reference Range Interpretation Comments B-Type Natriuretic Peptide (test 427.5 pg/mL 0.0-100.0 H code = 81998-5) [facility] Description: Natriuretic peptide B [Mass/volume] in Serum or [id number] 13:54:00 Test Item Value Reference Range Interpretation Comments B-Type Natriuretic Peptide (test 427.5 pg/mL 0.0-100.0 H code = 44720-6) [facility] Description: Natriuretic peptide B [Mass/volume] in Serum or [id number] 13:54:00 Test Item Value Reference Range Interpretation Comments B-Type Natriuretic Peptide (test 427.5 pg/mL 0.0-100.0 H code = 72862-3) [facility] Description: Natriuretic peptide B [Mass/volume] in Serum or [id number] 13:54:00 Test Item Value Reference Range Interpretation Comments B-Type Natriuretic Peptide (test 427.5 pg/mL 0.0-100.0 H code = 00581-5) [facility] Description: Natriuretic peptide B [Mass/volume] in Serum or [id number] 13:54:00 Test Item Value Reference Range Interpretation Comments B-Type Natriuretic Peptide (test 427.5 pg/mL 0.0-100.0 H code = 47898-0) [facility] Description: Natriuretic peptide B [Mass/volume] in Serum or [id number] 13:54:00 Test Item Value Reference Range Interpretation Comments B-Type Natriuretic Peptide (test 427.5 pg/mL 0.0-100.0 H code = 99134-7) [facility] Description: Natriuretic peptide B [Mass/volume] in Serum or [id number] 13:54:00 Test Item Value Reference Range Interpretation Comments B-Type Natriuretic Peptide (test 427.5 pg/mL 0.0-100.0 H code = 28313-4) [facility] Description: Natriuretic peptide B [Mass/volume] in Serum or [id number] 13:54:00 Test Item Value Reference Range Interpretation Comments B-Type Natriuretic Peptide (test 427.5 pg/mL 0.0-100.0 H code = 41586-0) [facility] Description: Natriuretic peptide B [Mass/volume] in Serum or [id number] 13:54:00 Test Item Value Reference Range Interpretation Comments B-Type Natriuretic Peptide (test 427.5 pg/mL 0.0-100.0 H code = 44430-8) [facility] Description: Natriuretic peptide B [Mass/volume] in Serum or [id number] 13:54:00 Test Item Value Reference Range Interpretation Comments B-Type Natriuretic Peptide (test 427.5 pg/mL 0.0-100.0 H code = 96448-1) [facility] Description: Natriuretic peptide B [Mass/volume] in Serum or [id number] 13:54:00 Test Item Value Reference Range Interpretation Comments B-Type Natriuretic Peptide (test 427.5 pg/mL 0.0-100.0 H code = 01646-8) [facility] Description: Natriuretic peptide B [Mass/volume] in Serum or [id number] 13:54:00 Test Item Value Reference Range Interpretation Comments B-Type Natriuretic Peptide (test 427.5 pg/mL 0.0-100.0 H code = 24479-5) [facility] Description: Natriuretic peptide B [Mass/volume] in Serum or [id number] 13:54:00 Test Item Value Reference Range Interpretation Comments B-Type Natriuretic Peptide (test 427.5 pg/mL 0.0-100.0 H code = 66931-9) [facility] Description: Natriuretic peptide B [Mass/volume] in Serum or [id number] 13:54:00 Test Item Value Reference Range Interpretation Comments B-Type Natriuretic Peptide (test 427.5 pg/mL 0.0-100.0 H code = 19008-6) [facility] Description: Natriuretic peptide B [Mass/volume] in Serum or [id number] 13:54:00 Test Item Value Reference Range Interpretation Comments B-Type Natriuretic Peptide (test 427.5 pg/mL 0.0-100.0 H code = 06805-0) [facility] Description: Natriuretic peptide B [Mass/volume] in Serum or [id number] 13:54:00 Test Item Value Reference Range Interpretation Comments B-Type Natriuretic Peptide (test 427.5 pg/mL 0.0-100.0 H code = 37189-8) [facility] Description: Natriuretic peptide B [Mass/volume] in Serum or [id number] 13:54:00 Test Item Value Reference Range Interpretation Comments B-Type Natriuretic Peptide (test 427.5 pg/mL 0.0-100.0 H code = 88268-1) [facility] Description: Natriuretic peptide B [Mass/volume] in Serum or [id number] 13:54:00 Test Item Value Reference Range Interpretation Comments B-Type Natriuretic Peptide (test 427.5 pg/mL 0.0-100.0 H code = 94559-6) [facility] Description: Phosphate [Mass/volume] in Serum or Plasma 2020-12-04 02:42:00 Test Item Value Reference Range Interpretation Comments Phosphorus (test code = 2777-1) 4.4 mg/dL 2.8-4.1 H [facility]: Phosphate [Mass/volume] in Serum or Plasma 2020-12-04 02:42:00 Test Item Value Reference Range Interpretation Comments Phosphorus (test code = 2777-1) 4.4 mg/dL 2.8-4.1 H [facility]: Phosphate [Mass/volume] in Serum or Plasma 2020-12-04 02:42:00 Test Item Value Reference Range Interpretation Comments Phosphorus (test code = 2777-1) 4.4 mg/dL 2.8-4.1 H [facility] Description: Phosphate [Mass/volume] in Serum or Plasma 2020-12-04 02:42:00 Test Item Value Reference Range Interpretation Comments Phosphorus (test code = 2777-1) 4.4 mg/dL 2.8-4.1 H [facility]: Phosphate [Mass/volume] in Serum or Plasma [...] >59 L Am (test code = mL/min/1.73 50767-3) eGFR If Africn Am 37 >59 L [facility] currently (test code = mL/min/1.73 [place] [address]-6) compliance with the current recommendations of the National Kidney Foundation. [facility] [place] will update rep orting as new guidelin es are published from the NKF-ASN Task force.
<br/ >Perfor med by:
[facility] ([place])

BUN/Creatinine 22 9-20 H Ratio (test code = 3097-3) Sodium (test code = 142 mmol/L 589-106 0991-2) Potassium (test 4.3 mmol/L 3.5-5.2 code = 2823-3) Chloride (test code 100 mmol/L 96-106 = 2075-0) Carbon Dioxide, 28 mmol/L 20-29 Total (test code = 2027-) Calcium (test code 9.2 mg/dL 8.7-10.2 = 93428-4) Protein, Total 6.5 g/dL 6.0-8.5 (test code = 2885-2) Albumin (test code 3.5 g/dL 4.0-5.0 L = 1751-7) Globulin, Total 3.0 g/dL 1.5-4.5 (test code = 45877-8) A/G Ratio (test 1.2 1.2-2.2 code = 1759-0) Bilirubin, Total 0.4 mg/dL 0.0-1.2 (test code = 1975-2) Alkaline 107 IU/L 48-121 Effective Se ptember Phosphatase (test 2020 A lkaline code = 6768-6) Phosphatase reference inter jamil will be alireza bajwa to: Age Male Female 0 - 5 days 47 - 127 4 7 - 127 6 - 10 days 29 - 242 29 - 242 11 - 2 0 days 109 - 357 109 - 357 21 - 30 days 94 - 494 94 - 494 1 - 2 mon ths 149 - 539 149 - 539 3 - 6 months 131 - 45 2 131 - 452 7 - 11 vik hs 117 - 401 117 - 40 1 12 months - 6 year s 158 - 369 158 - 369 7 - 12 years 150 - 409 150 - 409 13 years 15 6 - 435 78 - 227 14 yea rs 114 - 375 64 - 161 15 years 88 - 279 56 - 134 16 years 7 4 - 207 51 - 121 17 yea rs 63 - 161 47 - 113 18 - 20 years 51 - 125 42 - 106 >20 years 4 4 - 121 44 - 121

Pe rformed by:
[facility] [place] ([place])

AST (SGOT) (test 20 IU/L 0-40 [...] >59 L Am (test code = mL/min/1.73 92950-3) eGFR If Africn Am 37 >59 L [facility] currently (test code = mL/min/1.73 [place] [address]-6) compliance with the current recommendations of the National Kidney Foundation. [facility] [place] will update rep orting as new guidelin es are published from the NKF-ASN Task force.
<br/ >Perfor med by:
[facility] [place] ([place])

BUN/Creatinine 22 9-20 H Ratio (test code = 3097-3) Sodium (test code = 142 mmol/L 453-693 8149-2) Potassium (test 4.3 mmol/L 3.5-5.2 code = 2823-3) Chloride (test code 100 mmol/L 96-106 = 2075-0) Carbon Dioxide, 28 mmol/L 20-29 Total (test code = 2027-) Calcium (test code 9.2 mg/dL 8.7-10.2 = 19499-7) Protein, Total 6.5 g/dL 6.0-8.5 (test code = 2885-2) Albumin (test code 3.5 g/dL 4.0-5.0 L = 1751-7) Globulin, Total 3.0 g/dL 1.5-4.5 (test code = 33316-2) A/G Ratio (test 1.2 1.2-2.2 code = 1759-0) Bilirubin, Total 0.4 mg/dL 0.0-1.2 (test code = 1975-2) Alkaline 107 IU/L 48-121 Effective Se ptember Phosphatase (test 2020 A lkaline code = 6768-6) Phosphatase reference inter jamil will be alireza saldivar: Age Male Female 0 - 5 days 47 - 127 4 7 - 127 6 - 10 days 29 - 242 29 - 242 11 - 20 days 109 - 357 109 - 357 21 - 30 days 94 - 494 94 - 494 1 - 2 mon ths 149 - 539 149 - 539 3 - 6 months 131 - 45 2 131 - 452 7 - 11 vik hs 117 - 401 117 - 401 12 months - 6 year s 158 - 369 158 - 369 7 - 12 years 150 - 409 150 - 409 13 years 15 6 - 435 78 - 227 14 yea rs 114 - 375 64 - 161 15 years 88 - 279 56 - 134 16 years 74 - 207 51 - 121 17 yea rs 63 - 161 47 - 113 18 - 20 years 51 - 125 42 - 106 >20 years 4 4 - 121 44 - 121

Pe rformed by:
[facility] [place] ([place])

AST (SGOT) (test 20 IU/L 0-40 [...] >59 L Am (test code = mL/min/1.73 02829-6) eGFR If Africn Am 37 >59 L [facility] currently (test code = mL/min/1.73 [place] 06376-9) compliance with the current recommendations of the National Kidney Foundation. [facility] [place] will update rep orting as new guidelin es are published from the NKF-ASN Task force.
<br/ >Perfor med by:
[facility] ([facility])

BUN/Creatinine 22 9-20 H Ratio (test code = 3097-3) Sodium (test code = 142 mmol/L 215-248 8915-2) Potassium (test 4.3 mmol/L 3.5-5.2 code = 2823-3) Chloride (test code 100 mmol/L 96-106 = 2075-0) Carbon Dioxide, 28 mmol/L 20-29 Total (test code = 2027-) Calcium (test code 9.2 mg/dL 8.7-10.2 = 90169-1) Protein, Total 6.5 g/dL 6.0-8.5 (test code = 2885-2) Albumin (test code 3.5 g/dL 4.0-5.0 L = 1751-7) Globulin, Total 3.0 g/dL 1.5-4.5 (test code = 40668-1) A/G Ratio (test 1.2 1.2-2.2 code = 1759-0) Bilirubin, Total 0.4 mg/dL 0.0-1.2 (test code = 1975-2) Alkaline 107 IU/L 48-121 Effective Se ptember Phosphatase (test 2020 A lkaline code = 6768-6) Phosphatase reference inter jamil will be alireza bajwa to: Age Male Female 0 - 5 days 47 - 127 4 7 - 127 6 - 10 days 29 - 242 29 - 242 11 - 2 0 days 109 - 357 109 - 357 21 - 30 days 94 - 494 94 - 494 1 - 2 mon ths 149 - 539 149 - 539 3 - 6 months 131 - 45 2 131 - 452 7 - 11 mon ths 117 - 401 117 - 401 12 months - 6 year s 158 - 369 158 - 369 7 - 12 years 150 - 409 150 - 409 13 years 1 56 - 435 78 - 227 14 years 114 - 375 64 - 161 15 years 88 - 279 56 - 134 16 years 7 4 - 207 51 - 121 17 yea rs 63 - 161 47 - 113 18 - 20 years 51 - 125 42 - 106 >20 years 4 4 - 121 44 - 121

Pe rformed by:
[facility] [place] ([place])

AST (SGOT) (test 20 IU/L 0-40 [...] >59 L Am (test code = mL/min/1.73 94500-6) eGFR If Africn Am 37 >59 L [facility] currently (test code = mL/min/1.73 [place] 13235-2) compliance with the current recommendations of the National Kidney Foundation. [facility] [place] will update rep orting as new guidelin es are published from the NKF-ASN Task force.
<br/ >Perfor med by:
[facility] [place] ([place])

BUN/Creatinine 22 9-20 H Ratio (test code = 3097-3) Sodium (test code = 142 mmol/L 810-042 7532-2) Potassium (test 4.3 mmol/L 3.5-5.2 code = 2823-3) Chloride (test code 100 mmol/L 96-106 = 2075-0) Carbon Dioxide, 28 mmol/L 20-29 Total (test code = 2027-) Calcium (test code 9.2 mg/dL 8.7-10.2 = 05699-7) Protein, Total 6.5 g/dL 6.0-8.5 (test code = 2885-2) Albumin (test code 3.5 g/dL 4.0-5.0 L = 1751-7) Globulin, Total 3.0 g/dL 1.5-4.5 (test code = 25717-7) A/G Ratio (test 1.2 1.2-2.2 code = 1759-0) Bilirubin, Total 0.4 mg/dL 0.0-1.2 (test code = 1975-2) Alkaline 107 IU/L 48-121 Effective Se ptember Phosphatase (test 2020 A lkaline code = 6768-6) Phosphatase reference inter jamil will be levonin garett to: Age Male Female 0 - 5 days 47 - 127 4 7 - 127 6 - 10 days 29 - 242 29 - 242 11 - 2 0 days 109 - 357 109 - 357 21 - 30 days 94 - 494 94 - 494 1 - 2 mon ths 149 - 539 149 - 539 3 - 6 months 131 - 45 2 131 - 452 7 - 11 vik hs 117 - 401 117 - 401 12 months - 6 yea rs 158 - 369 158 - 369 7 - 12 years 150 - 409 150 - 409 13 years 15 6 - 435 78 - 227 14 ye ars 114 - 375 64 - 161 15 years 88 - 279 56 - 134 16 years 74 - 207 51 - 121 17 ye ars 63 - 161 47 - 113 18 - 20 years 51 - 125 42 - 106 >20 years 4 4 - 121 44 - 121

Pe rformed [...] >59 L Am (test code = mL/min/1.73 57350-8) eGFR If Africn Am 37 >59 L [facility] currently (test code = mL/min/1.73 [place] [address]76-8) compliance with the current recommendations of the National Kidney Foundation. [facility] [place] will update rep orting as new guidelin es are published from the NKF-ASN Task force.
<br/ >Perfor med by:
[facility] ([facility])

BUN/Creatinine 22 9-20 H Ratio (test code = 3097-3) Sodium (test code = 142 mmol/L 756-674 9488-2) Potassium (test 4.3 mmol/L 3.5-5.2 code = 2823-3) Chloride (test code 100 mmol/L 96-106 = 2075-0) Carbon Dioxide, 28 mmol/L 20-29 Total (test code = 2027-) Calcium (test code 9.2 mg/dL 8.7-10.2 = 19966-0) Protein, Total 6.5 g/dL 6.0-8.5 (test code = 2885-2) Albumin (test code 3.5 g/dL 4.0-5.0 L = 1751-7) Globulin, Total 3.0 g/dL 1.5-4.5 (test code = 38513-1) A/G Ratio (test 1.2 1.2-2.2 code = 1759-0) Bilirubin, Total 0.4 mg/dL 0.0-1.2 (test code = 1975-2) Alkaline 107 IU/L 48-121 Effective Se ptember Phosphatase (test 2020 A lkaline code = 6768-6) Phosphatase reference inter jamil will be levonin g to: Age Male Female 0 - 5 days 47 - 127 4 7 - 127 6 - 10 days 29 - 242 29 - 242 11 - 2 0 days 109 - 357 109 - 357 21 - 30 days 94 - 494 94 - 494 1 - 2 months 149 - 539 149 - 539 3 - 6 months 131 - 452 131 - 452 7 - 1 1 months 117 - 40 1 117 - 401 12 months - 6 years 158 - 369 158 - 369 7 - 12 year s 150 - 409 150 - 409 13 years 156 - 435 78 - 227 14 years 11 4 - 375 64 - 161 15 yea rs 88 - 279 56 - 134 16 years 74 - 207 51 - 1 21 17 years 63 - 161 47 - 113 18 - 20 y[place] rs 51 - 125 42 - 106 >2 0 years 44 - 121 44 - 121

Pe rformed by:
[facility] [place] ([place])

AST (SGOT) (test 20 IU/L 0-40 [...] >59 L Am (test code = mL/min/1.73 17745-9) eGFR If Africn Am 37 >59 L [facility] currently (test code = mL/min/1.73 [place] [address]-1) compliance with the current recommendations of the National Kidney Foundation. [facility] [place] will update rep orting as new guidelin es are published from the NKF-ASN Task force.
<br/ >Perfor med by:
[facility] [place] ([place])

BUN/Creatinine 22 9-20 H Ratio (test code = 3097-3) Sodium (test code = 142 mmol/L 120-028 6254-2) Potassium (test 4.3 mmol/L 3.5-5.2 code = 2823-3) Chloride (test code 100 mmol/L 96-106 = 2075-0) Carbon Dioxide, 28 mmol/L 20-29 Total (test code = 2027-) Calcium (test code 9.2 mg/dL 8.7-10.2 = 91300-6) Protein, Total 6.5 g/dL 6.0-8.5 (test code = 2885-2) Albumin (test code 3.5 g/dL 4.0-5.0 L = 1751-7) Globulin, Total 3.0 g/dL 1.5-4.5 (test code = 20203-9) A/G Ratio (test 1.2 1.2-2.2 code = 1759-0) Bilirubin, Total 0.4 mg/dL 0.0-1.2 (test code = 1975-2) Alkaline 107 IU/L 48-121 Effective Se ptember Phosphatase (test 2020 A lkaline code = 6768-6) Phosphatase reference inter jamil will be alireza bajwa to: Age Male Female 0 - 5 days 47 - 127 4 7 - 127 6 - 10 days 29 - 242 29 - 242 11 - 2 0 days 109 - 357 109 - 357 21 - 30 days 94 - 494 94 - 494 1 - 2 mon ths 149 - 539 149 - 539 3 - 6 months 131 - 45 2 131 - 452 7 - 11 vik hs 117 - 401 117 - 401 12 months - 6 year s 158 - 369 158 - 369 7 - 12 years 150 - 409 150 - 409 13 years 15 6 - 435 78 - 227 14 yea rs 114 - 375 64 - 161 15 years 88 - 279 56 - 134 16 years 74 - 207 51 - 121 17 yea rs 63 - 161 47 - 113 18 - 20 years 51 - 125 42 - 106 >20 years 4 4 - 121 44 - 121

Pe rformed by:
[facility] [place] ([place])

AST (SGOT) (test 20 IU/L 0-40 code = 1920-8) ALT (SGPT) (test 22 IU/L 0-44 code = 1742-6) [facility] Description: Comp. Metabolic Panel ()2020-12-04 02:12:00 Test Item Value Reference Range Interpretation Comments Glucose (test code 315 mg/dL 65-99 H = 2345-7) BUN (test code = 52 mg/dL 6-24 H 3094-0) Creatinine (test 2.32 mg/dL 0.76-1.27 H code = 2160-0) eGFR If NonAfricn 32 >59 L Am (test code = mL/min/1.73 59746-7) eGFR If Africn Am 37 >59 L [facility] currently (test code = mL/min/1.73 [place] [address]-2) compliance with the current recommendations of the National Kidney Foundation. [facility] [place] will update rep orting as new guidelin es are published from the NKF-ASN Task force.
<br/ >Perfor med by:
[facility] ([facility])

BUN/Creatinine 22 9-20 H Ratio (test code = 3097-3) Sodium (test code = 142 mmol/L 088-645 7685-2) Potassium (test 4.3 mmol/L 3.5-5.2 code = 2823-3) Chloride (test code 100 mmol/L 96-106 = 2075-0) Carbon Dioxide, 28 mmol/L 20-29 Total (test code = 2027-) Calcium (test code 9.2 mg/dL 8.7-10.2 = 49893-1) Protein, Total 6.5 g/dL 6.0-8.5 (test code = 2885-2) Albumin (test code 3.5 g/dL 4.0-5.0 L = 1751-7) Globulin, Total 3.0 g/dL 1.5-4.5 (test code = 14074-6) A/G Ratio (test 1.2 1.2-2.2 code = 1759-0) Bilirubin, Total 0.4 mg/dL 0.0-1.2 (test code = 1975-2) Alkaline 107 IU/L 48-121 Effective Se ptember Phosphatase (test 2020 A lkaline code = 6768-6) Phosphatase reference inter jamil will be alireza bajwa to: Age Male Female 0 - 5 days 47 - 127 4 7 - 127 6 - 10 days 29 - 242 29 - 242 11 - 20 days 109 - 357 109 - 357 21 - 30 days 94 - 494 94 - 494 1 - 2 mon ths 149 - 539 149 - 539 3 - 6 months 131 - 45 2 131 - 452 7 - 11 vik hs 117 - 401 117 - 401 12 months - 6 year s 158 - 369 158 - 369 7 - 12 years 150 - 409 150 - 409 13 years 15 6 - 435 78 - 227 14 yea rs 114 - 375 64 - 161 15 years 88 - 279 56 - 134 16 years 74 - 207 51 - 121 17 yea rs 63 - 161 47 - 113 1 8 - 20 years 51 - 125 42 - 106 >20 years 4 4 - 121 44 - 121

Pe rformed by:
[facility] [place] ([place])

AST (SGOT) (test 20 IU/L 0-40 [...] >59 L Am (test code = mL/min/1.73 89495-8) eGFR If Africn Am 37 >59 L [facility] currently (test code = mL/min/1.73 [place] 07315-8) compliance with the current recommendations of the National Kidney Foundation. [facility] [place] will update rep orting as new guidelin es are published from the NKF-ASN Task force.
<br/ >Perfor med by:
[facility] [place] ([place])

BUN/Creatinine 22 9-20 H Ratio (test code = 3097-3) Sodium (test code = 142 mmol/L 659-786 5725-2) Potassium (test 4.3 mmol/L 3.5-5.2 code = 2823-3) Chloride (test code 100 mmol/L 96-106 = 2075-0) Carbon Dioxide, 28 mmol/L 20-29 Total (test code = 2027-) Calcium (test code 9.2 mg/dL 8.7-10.2 = 82481-6) Protein, Total 6.5 g/dL 6.0-8.5 (test code = 2885-2) Albumin (test code 3.5 g/dL 4.0-5.0 L = 1751-7) Globulin, Total 3.0 g/dL 1.5-4.5 (test code = 89261-5) A/G Ratio (test 1.2 1.2-2.2 code = 1759-0) Bilirubin, Total 0.4 mg/dL 0.0-1.2 (test code = 1975-2) Alkaline 107 IU/L 48-121 Effective Se ptember Phosphatase (test 2020 A lkaline code = 6768-6) Phosphatase reference inter jamil will be levonin g to: Age Male Female 0 - 5 days 47 - 127 4 7 - 127 6 - 10 days 29 - 242 29 - 242 11 - 2 0 days 109 - 357 109 - 357 21 - 30 days 94 - 494 94 - 494 1 - 2 mon ths 149 - 539 149 - 539 3 - 6 months 131 - 45 2 131 - 452 7 - 11 mon ths 117 - 401 117 - 401 12 months - 6 year s 158 - 369 158 - 369 7 - 12 years 150 - 409 150 - 409 13 years 1 56 - 435 78 - 227 14 years 114 - 375 64 - 161 15 years 88 - 279 56 - 134 16 years 7 4 - 207 51 - 121 17 yea rs 63 - 161 47 - 113 18 - 20 years 51 - 125 42 [...] >59 L Am (test code = mL/min/1.73 51950-8) eGFR If Africn Am 37 >59 L [facility] currently (test code = mL/min/1.73 [place] [address]-1) compliance with the current recommendations of the National Kidney Foundation. [facility] [place] will update rep orting as new guidelin es are published from the NKF-ASN Task force.
<br/ >Perfor med by:
[facility] ([facility])

BUN/Creatinine 22 9-20 H Ratio (test code = 3097-3) Sodium (test code = 142 mmol/L 477-763 7400-2) Potassium (test 4.3 mmol/L 3.5-5.2 code = 2823-3) Chloride (test code 100 mmol/L 96-106 = 2075-0) Carbon Dioxide, 28 mmol/L 20-29 Total (test code = 2027-) Calcium (test code 9.2 mg/dL 8.7-10.2 = 00472-3) Protein, Total 6.5 g/dL 6.0-8.5 (test code = 2885-2) Albumin (test code 3.5 g/dL 4.0-5.0 L = 1751-7) Globulin, Total 3.0 g/dL 1.5-4.5 (test code = 51859-3) A/G Ratio (test 1.2 1.2-2.2 code = 1759-0) Bilirubin, Total 0.4 mg/dL 0.0-1.2 (test code = 1975-2) Alkaline 107 IU/L 48-121 Effective Se ptember Phosphatase (test 2020 A lkaline code = 6768-6) Phosphatase reference inter jamil will be levonin g to: Age Male Female 0 - 5 days 47 - 127 4 7 - 127 6 - 10 days 29 - 242 29 - 242 11 - 2 0 days 109 - 357 109 - 357 21 - 30 days 94 - 494 94 - 494 1 - 2 mon ths 149 - 539 149 - 539 3 - 6 months 131 - 452 131 - 452 7 - 1 1 months 117 - 40 1 117 - 401 12 months - 6 years 158 - 369 158 - 369 7 - 12 year s 150 - 409 150 - 409 1 3 years 156 - 435 78 - 227 14 years 114 - 375 64 - 161 15 years 88 - 279 56 - 134 16 yea rs 74 - 207 51 - 121 1 7 years 63 - 161 47 - 1 13 18 - 20 years 51 - 1 25 42 - 106 >20 years 4 4 - 121 44 - 121

Pe rformed by:
[facility] [place] ([place])

AST (SGOT) (test 20 IU/L 0-40 [...] >59 L Am (test code = mL/min/1.73 31462-3) eGFR If Africn Am 37 >59 L [facility] currently (test code = mL/min/1.73 [place] [address]992-2) compliance with the current recommendations of the National Kidney Foundation. [facility] [place] will update rep orting as new guidelin es are published from the NKF-ASN Task force.
<br/ >Perfor med by:
[facility] [place] ([place])

BUN/Creatinine 22 9-20 H Ratio (test code = 3097-3) Sodium (test code = 142 mmol/L 931-788 2551-2) Potassium (test 4.3 mmol/L 3.5-5.2 code = 2823-3) Chloride (test code 100 mmol/L 96-106 = 2075-0) Carbon Dioxide, 28 mmol/L 20-29 Total (test code = 2027-) Calcium (test code 9.2 mg/dL 8.7-10.2 = 79490-7) Protein, Total 6.5 g/dL 6.0-8.5 (test code = 2885-2) Albumin (test code 3.5 g/dL 4.0-5.0 L = 1751-7) Globulin, Total 3.0 g/dL 1.5-4.5 (test code = 91734-5) A/G Ratio (test 1.2 1.2-2.2 code = 1759-0) Bilirubin, Total 0.4 mg/dL 0.0-1.2 (test code = 1975-2) Alkaline 107 IU/L 48-121 Effective Se ptember Phosphatase (test 2020 A lkaline code = 6768-6) Phosphatase reference inter jamil will be levonin g to: Age Male Female 0 - 5 days 47 - 127 4 7 - 127 6 - 10 days 29 - 242 29 - 242 11 - 2 0 days 109 - 357 109 - 357 21 - 30 days 94 - 494 94 - 494 1 - 2 mon ths 149 - 539 149 - 539 3 - 6 months 131 - 45 2 131 - 452 7 - 11 vik hs 117 - 401 117 - 401 12 months - 6 year s 158 - 369 158 - 369 7 - 12 years 150 - 409 150 - 409 13 years 15 6 - 435 78 - 227 14 yea rs 114 - 375 64 - 161 15 years 88 - 279 56 - 134 16 years 74 - 207 51 - 121 17 yea rs 63 - 161 47 - 113 18 - 20 years 51 - 125 42 - 106 >20 years 4 4 - 121 44 - 121

Pe rformed by:
[facility] [place] ([place])

AST (SGOT) (test 20 IU/L 0-40 [...] >59 L Am (test code = mL/min/1.73 96265-8) eGFR If Africn Am 37 >59 L [facility] currently (test code = mL/min/1.73 [place] 7[address]-9) compliance with the current recommendations of the National Kidney Foundation. [facility] [place] will update rep orting as new guidelin es are published from the NKF-ASN Task force.
<br/ >Perfor med by:
[facility] [place] ([place])

BUN/Creatinine 22 9-20 H Ratio (test code = 3097-3) Sodium (test code = 142 mmol/L 282-550 8334-2) Potassium (test 4.3 mmol/L 3.5-5.2 code = 2823-3) Chloride (test code 100 mmol/L 96-106 = 2075-0) Carbon Dioxide, 28 mmol/L 20-29 Total (test code = 2027-) Calcium (test code 9.2 mg/dL 8.7-10.2 = 99760-8) Protein, Total 6.5 g/dL 6.0-8.5 (test code = 2885-2) Albumin (test code 3.5 g/dL 4.0-5.0 L = 1751-7) Globulin, Total 3.0 g/dL 1.5-4.5 (test code = 23345-2) A/G Ratio (test 1.2 1.2-2.2 code = 1759-0) Bilirubin, Total 0.4 mg/dL 0.0-1.2 (test code = 1975-2) Alkaline 107 IU/L 48-121 Effective Se ptember Phosphatase (test 2020 A lkaline code = 6768-6) Phosphatase reference inter jamil will be alireza g to: Age Male Female 0 - 5 days 47 - 127 4 7 - 127 6 - 10 days 29 - 242 29 - 242 11 - 2 0 days 109 - 357 109 - 357 21 - 30 days 94 - 494 94 - 494 1 - 2 mo nths 149 - 539 149 - 539 3 - 6 months 131 - 452 131 - 452 7 - 1 1 months 117 - 40 1 117 - 401 12 months - 6 years 158 - 369 158 - 369 7 - 12 year s 150 - 409 150 - 409 1 3 years 156 - 435 78 - 227 14 years 114 - 375 64 - 161 15 years 88 - 279 56 - 134 16 yea rs 74 - 207 51 - 121 17 years 63 - 161 47 - 1 13 18 - 20 years 51 - 1 25 42 - 106 >20 years 44 - 121 44 - 121

Pe rformed by:
[facility] [place] ([place])

AST (SGOT) (test 20 IU/L 0-40 [...] >59 L Am (test code = mL/min/1.73 48081-0) eGFR If Africn Am 37 >59 L [facility] currently (test code = mL/min/1.73 [place] [address]-1) compliance with the current recommendations of the [employer]. [facility] will update rep orting as new guidelin es are published from the NKF-ASN Task force.
<br/ >Perfor med by:
[facility] [place] ([place])

BUN/Creatinine 22 9-20 H Ratio (test code = 3097-3) Sodium (test code = 142 mmol/L 400-593 1678-2) Potassium (test 4.3 mmol/L 3.5-5.2 code = 2823-3) Chloride (test code 100 mmol/L 96-106 = 2075-0) Carbon Dioxide, 28 mmol/L 20-29 Total (test code = 2027-) Calcium (test code 9.2 mg/dL 8.7-10.2 = 37445-6) Protein, Total 6.5 g/dL 6.0-8.5 (test code = 2885-2) Albumin (test code 3.5 g/dL 4.0-5.0 L = 1751-7) Globulin, Total 3.0 g/dL 1.5-4.5 (test code = 71356-3) A/G Ratio (test 1.2 1.2-2.2 code = 1759-0) Bilirubin, Total 0.4 mg/dL 0.0-1.2 (test code = 1975-2) Alkaline 107 IU/L 48-121 Effective Se ptember Phosphatase (test 2020 A lkaline code = 6768-6) Phosphatase reference inter jamil will be alireza bajwa to: Age Male Female 0 - 5 days 47 - 127 4 7 - 127 6 - 10 days 29 - 242 29 - 242 11 - 20 days 109 - 357 109 - 357 21 - 30 days 94 - 494 94 - 494 1 - 2 mon ths 149 - 539 149 - 539 3 - 6 months 131 - 45 2 131 - 452 7 - 11 vik hs 117 - 401 117 - 401 12 months - 6 year s 158 - 369 158 - 369 7 - 12 years 150 - 409 150 - 409 13 years 15 6 - 435 78 - 227 14 yea rs 114 - 375 64 - 161 15 years 88 - 279 56 - 134 16 years 74 - 207 51 - 121 17 yea rs 63 - 161 47 - 113 18 - 20 years 51 - 125 42 - 106 >20 years 4 4 - 121 44 - 121

Pe rformed by:
[facility] [place] ([place])

AST (SGOT) (test 20 IU/L 0-40 [...] >59 L Am (test code = mL/min/1.73 36253-2) eGFR If Africn Am 37 >59 L [facility] currently (test code = mL/min/1.73 [place] [address]-3) compliance with the current recommendations of the [employer]. [facility] [place] will update rep orting as new guidelin es are published from the NKF-ASN Task force.
<br/ >Perfor med by:
[facility] [place] ([place])

BUN/Creatinine 22 9-20 H Ratio (test code = 3097-3) Sodium (test code = 142 mmol/L 987-492 6393-2) Potassium (test 4.3 mmol/L 3.5-5.2 code = 2823-3) Chloride (test code 100 mmol/L 96-106 = 2075-0) Carbon Dioxide, 28 mmol/L 20-29 Total (test code = 2027-) Calcium (test code 9.2 mg/dL 8.7-10.2 = 01060-6) Protein, Total 6.5 g/dL 6.0-8.5 (test code = 2885-2) Albumin (test code 3.5 g/dL 4.0-5.0 L = 1751-7) Globulin, Total 3.0 g/dL 1.5-4.5 (test code = 85680-8) A/G Ratio (test 1.2 1.2-2.2 code = 1759-0) Bilirubin, Total 0.4 mg/dL 0.0-1.2 (test code = 1975-2) Alkaline 107 IU/L 48-121 Effective Se ptember Phosphatase (test 2020 A lkaline code = 6768-6) Phosphatase reference inter jamil will be alireza bajwa to: Age Male Female 0 - 5 days 47 - 127 47 - 127 6 - 10 days 29 - 242 29 - 242 11 - 20 days 109 - 357 109 - 357 21 - 30 day s 94 - 494 94 - 494 1 - 2 months 149 - 53 9 149 - 539 3 - 6 month s 131 - 452 131 - 452 7 - 11 months 117 - 40 1 117 - 401 12 months - 6 years 158 - 369 158 - 369 7 - 12 year s 150 - 409 150 - 409 13 years 156 - 435 78 - 227 14 years 11 4 - 375 64 - 161 15 yea rs 88 - 279 56 - 134 1 6 years 74 - 207 51 - 1 21 17 years 63 - 161 47 - 113 18 - 20 yea rs 51 - 125 42 - 106 > 20 years 44 - 121 44 - 121

Pe rformed by:
[facility] [place] ([place])

AST (SGOT) (test 20 IU/L 0-40 [...] >59 L Am (test code = mL/min/1.73 02380-3) eGFR If Africn Am 37 >59 L [facility] currently (test code = mL/min/1.73 [place] 19774-4) compliance with the current recommendations of the [employer]. [facility] [place] will update rep orting as new guidelin es are published from the NKF-ASN Task force.
<br/ >Perfor med by:
[facility] [place] ([place])

BUN/Creatinine 22 9-20 H Ratio (test code = 3097-3) Sodium (test code = 142 mmol/L 385-744 1993-2) Potassium (test 4.3 mmol/L 3.5-5.2 code = 2823-3) Chloride (test code 100 mmol/L 96-106 = 2075-0) Carbon Dioxide, 28 mmol/L 20-29 Total (test code = 2027-) Calcium (test code 9.2 mg/dL 8.7-10.2 = 89822-5) Protein, Total 6.5 g/dL 6.0-8.5 (test code = 2885-2) Albumin (test code 3.5 g/dL 4.0-5.0 L = 1751-7) Globulin, Total 3.0 g/dL 1.5-4.5 (test code = 76871-9) A/G Ratio (test 1.2 1.2-2.2 code = 1759-0) Bilirubin, Total 0.4 mg/dL 0.0-1.2 (test code = 1975-2) Alkaline 107 IU/L 48-121 Effective Se ptember Phosphatase (test 2020 A lkaline code = 6768-6) Phosphatase reference inter jamil will be alireza bajwa to: Age Male Female 0 - 5 days 47 - 127 4 7 - 127 6 - 10 days 29 - 242 29 - 242 11 - 2 0 days 109 - 357 109 - 357 21 - 30 days 94 - 494 94 - 494 1 - 2 mon ths 149 - 539 149 - 539 3 - 6 months 131 - 45 2 131 - 452 7 - 11 vik hs 117 - 401 117 - 401 12 months - 6 year s 158 - 369 158 - 369 7 - 12 years 150 - 409 150 - 409 13 years 15 6 - 435 78 - 227 14 yea rs 114 - 375 64 - 161 15 years 88 - 279 56 - 134 16 years 74 - 207 51 - 121 17 ye ars 63 - 161 47 - 113 18 - 20 years 51 - 125 42 - 106 >20 years 4 4 - 121 44 - 121

Pe rformed [...] >59 L Am (test code = mL/min/1.73 76608-4) eGFR If Africn Am 37 >59 L [facility] currently (test code = mL/min/1.73 [place] 08082-9) compliance with the current recommendations of the [employer]. [facility] [place] will update rep orting as new guidelin es are published from the NKF-ASN Task force.
<br/ >Perfor med by:
[facility] ([place])

BUN/Creatinine 22 9-20 H Ratio (test code = 3097-3) Sodium (test code = 142 mmol/L 569-201 3788-2) Potassium (test 4.3 mmol/L 3.5-5.2 code = 2823-3) Chloride (test code 100 mmol/L 96-106 = 2075-0) Carbon Dioxide, 28 mmol/L 20-29 Total (test code = 2027-) Calcium (test code 9.2 mg/dL 8.7-10.2 = 82214-9) Protein, Total 6.5 g/dL 6.0-8.5 (test code = 2885-2) Albumin (test code 3.5 g/dL 4.0-5.0 L = 1751-7) Globulin, Total 3.0 g/dL 1.5-4.5 (test code = 87656-3) A/G Ratio (test 1.2 1.2-2.2 code = 1759-0) Bilirubin, Total 0.4 mg/dL 0.0-1.2 (test code = 1975-2) Alkaline 107 IU/L 48-121 Effective Se ptember Phosphatase (test 2020 A lkaline code = 6768-6) Phosphatase reference inter jamil will be alireza bajwa to: Age Male Female 0 - 5 days 47 - 127 4 7 - 127 6 - 10 days 29 - 242 29 - 242 11 - 2 0 days 109 - 357 109 - 357 21 - 30 days 94 - 494 94 - 494 1 - 2 mon ths 149 - 539 149 - 539 3 - 6 months 131 - 45 2 131 - 452 7 - 11 mo nths 117 - 401 117 - 401 12 months - 6 year s 158 - 369 158 - 369 7 - 12 years 150 - 409 150 - 409 13 years 15 6 - 435 78 - 227 14 yea rs 114 - 375 64 - 161 15 years 88 - 279 56 - 134 16 years 74 - 207 51 - 121 17 yea rs 63 - 161 47 - 113 18 - 20 years 51 - 125 42 - 106 >20 years 4 4 - 121 44 - 121

Pe rformed [...] >59 L Am (test code = mL/min/1.73 57695-1) eGFR If Africn Am 37 >59 L [facility] currently (test code = mL/min/1.73 [place] 64223-3) compliance with the current recommendations of the [employer]. [facility] [place] will update rep orting as new guidelin es are published from the NKF-ASN Task force.
<br/ >Perfor med by:
[facility] ([place])

BUN/Creatinine 22 9-20 H Ratio (test code = 3097-3) Sodium (test code = 142 mmol/L 225-291 3686-2) Potassium (test 4.3 mmol/L 3.5-5.2 code = 2823-3) Chloride (test code 100 mmol/L 96-106 = 2075-0) Carbon Dioxide, 28 mmol/L 20-29 Total (test code = 2027-9) Calcium (test code 9.2 mg/dL 8.7-10.2 = 03565-5) Protein, Total 6.5 g/dL 6.0-8.5 (test code = 2885-2) Albumin (test code 3.5 g/dL 4.0-5.0 L = 1751-7) Globulin, Total 3.0 g/dL 1.5-4.5 (test code = 41831-5) A/G Ratio (test 1.2 1.2-2.2 code = 1759-0) Bilirubin, Total 0.4 mg/dL 0.0-1.2 (test code = 1975-2) Alkaline 107 IU/L 48-121 Effective Se ptember Phosphatase (test 2020 A lkaline code = 6768-6) Phosphatase reference inter jamil will be alireza bajwa to: Age Male Female 0 - 5 days 47 - 127 4 7 - 127 6 - 10 days 29 - 242 29 - 242 11 - 2 0 days 109 - 357 109 - 357 21 - 30 days 94 - 494 94 - 494 1 - 2 mo nths 149 - 539 149 - 539 3 - 6 months 131 - 452 131 - 452 7 - 1 1 months 117 - 40 1 117 - 401 12 months - 6 years 158 - 369 158 - 369 7 - 12 year s 150 - 409 150 - 409 1 3 years 156 - 435 78 - 227 14 years 114 - 375 64 - 161 15 years 88 - 279 56 - 134 16 yea rs 74 - 207 51 - 121 1 7 years 63 - 161 47 - 1 13 18 - 20 years 51 - 1 25 42 - 106 >20 years 4 4 - 121 44 - 121

Pe rformed by:
[facility] [place] ([place])

AST (SGOT) (test 20 IU/L 0-40 [...] >59 L Am (test code = mL/min/1.73 97184-6) eGFR If Africn Am 37 >59 L [facility] currently (test code = mL/min/1.73 [place] [address]-0) compliance with the current recommendations of the [employer]. [facility] [place] will update rep orting as new guidelin es are published from the NKF-ASN Task force.
<br/ >Perfor med by:
[facility] [place] ([place])

BUN/Creatinine 22 9-20 H Ratio (test code = 3097-3) Sodium (test code = 142 mmol/L 737-370 5227-2) Potassium (test 4.3 mmol/L 3.5-5.2 code = 2823-3) Chloride (test code 100 mmol/L 96-106 = 2075-0) Carbon Dioxide, 28 mmol/L 20-29 Total (test code = 2027-) Calcium (test code 9.2 mg/dL 8.7-10.2 = 56498-1) Protein, Total 6.5 g/dL 6.0-8.5 (test code = 2885-2) Albumin (test code 3.5 g/dL 4.0-5.0 L = 1751-7) Globulin, Total 3.0 g/dL 1.5-4.5 (test code = 23927-4) A/G Ratio (test 1.2 1.2-2.2 code = 1759-0) Bilirubin, Total 0.4 mg/dL 0.0-1.2 (test code = 1974-2) Alkaline 107 IU/L 48-121 Effective Se ptember Phosphatase (test 2020 A lkaline code = 6768-6) Phosphatase reference inter jamil will be alireza bajwa to: Age Male Femal e 0 - 5 days 47 - 127 4 7 - 127 6 - 10 days 29 - 242 29 - 242 11 - 2 0 days 109 - 357 109 - 357 21 - 30 days 94 - 494 94 - 494 1 - 2 mon ths 149 - 539 149 - 539 3 - 6 months 131 - 45 2 131 - 452 7 - 11 vik hs 117 - 401 117 - 401 12 months - 6 year s 158 - 369 158 - 369 7 - 12 years 150 - 409 150 - 409 13 years 15 6 - 435 78 - 227 14 yea rs 114 - 375 64 - 161 15 years 88 - 279 56 - 134 16 years 74 - 207 51 - 121 17 yea rs 63 - 161 47 - 113 18 - 20 years 51 - 125 42 - 106 >20 years 4 4 - 121 44 - 121

Pe rformed [...] >59 L Am (test code = mL/min/1.73 50153-6) eGFR If Africn Am 37 >59 L [facility] currently (test code = mL/min/1.73 [place] [address]684-3) compliance with the current recommendations of the [employer]. [facility] [place] will update rep orting as new guidelin es are published from the NKF-ASN Task force.
<br/ >Perfor med by:
[facility] ([place])

BUN/Creatinine 22 9-20 H Ratio (test code = 3097-3) Sodium (test code = 142 mmol/L 523-735 5462-2) Potassium (test 4.3 mmol/L 3.5-5.2 code = 2823-3) Chloride (test code 100 mmol/L 96-106 = 2075-0) Carbon Dioxide, 28 mmol/L 20-29 Total (test code = 2027-) Calcium (test code 9.2 mg/dL 8.7-10.2 = 71615-1) Protein, Total 6.5 g/dL 6.0-8.5 (test code = 2885-2) Albumin (test code 3.5 g/dL 4.0-5.0 L = 1751-7) Globulin, Total 3.0 g/dL 1.5-4.5 (test code = 56970-7) A/G Ratio (test 1.2 1.2-2.2 code = 1759-0) Bilirubin, Total 0.4 mg/dL 0.0-1.2 (test code = 1975-2) Alkaline 107 IU/L 48-121 Effective Se ptember Phosphatase (test 2020 A lkaline code = 6768-6) Phosphatase reference inter jamil will be alireza garett to: Age Male Female 0 - 5 days 47 - 127 4 7 - 127 6 - 10 days 29 - 242 29 - 242 11 - 2 0 days 109 - 357 109 - 357 21 - 30 days 94 - 494 94 - 494 1 - 2 mon ths 149 - 539 149 - 539 3 - 6 months 131 - 45 2 131 - 452 7 - 11 vik hs 117 - 401 117 - 401 12 months - 6 year s 158 - 369 158 - 369 7 - 12 years 150 - 409 150 - 409 13 years 1 56 - 435 78 - 227 14 years 114 - 375 64 - 161 15 years 88 - 279 56 - 134 16 years 7 4 - 207 51 - 121 17 yea rs 63 - 161 47 - 113 18 - 20 years 51 - 125 42 [...] >59 L Am (test code = mL/min/1.73 33806-8) eGFR If Africn Am 37 >59 L [facility] currently (test code = mL/min/1.73 [place] 69254-2) compliance with the current recommendations of the [employer] Kid[employer]. [facility] [place] will update rep orting as new guidelin es are published from the NKF-ASN Task force.
<br/ >Perfor med by:
[facility] ([place])

BUN/Creatinine 22 9-20 H Ratio (test code = 3097-3) Sodium (test code = 142 mmol/L 185-308 6466-2) Potassium (test 4.3 mmol/L 3.5-5.2 code = 2823-3) Chloride (test code 100 mmol/L 96-106 = 2075-0) Carbon Dioxide, 28 mmol/L 20-29 Total (test code = 2027-) Calcium (test code 9.2 mg/dL 8.7-10.2 = 73518-5) Protein, Total 6.5 g/dL 6.0-8.5 (test code = 2885-2) Albumin (test code 3.5 g/dL 4.0-5.0 L = 1751-7) Globulin, Total 3.0 g/dL 1.5-4.5 (test code = 13882-3) A/G Ratio (test 1.2 1.2-2.2 code = 1759-0) Bilirubin, Total 0.4 mg/dL 0.0-1.2 (test code = 1974-2) Alkaline 107 IU/L 48-121 Effective Se ptember Phosphatase (test 2020 A lkaline code = 6768-6) Phosphatase reference inter jamil will be alireza bajwa to: Age Male Female 0 - 5 days 47 - 127 4 7 - 127 6 - 10 days 29 - 242 29 - 242 11 - 2 0 days 109 - 357 109 - 357 21 - 30 days 94 - 494 94 - 494 1 - 2 mon ths 149 - 539 149 - 539 3 - 6 months 131 - 45 2 131 - 452 7 - 11 vik hs 117 - 401 117 - 401 12 months - 6 year s 158 - 369 158 - 369 7 - 12 years 150 - 409 150 - 409 13 years 15 6 - 435 78 - 227 14 yea rs 114 - 375 64 - 161 15 years 88 - 279 56 - 134 16 years 74 - 207 51 - 121 17 yea rs 63 - 161 47 - 113 18 - 20 years 51 - 125 42 - 106 >20 years 4 4 - 121 44 - 121

Pe rformed by:
[facility] [place] ([place])

AST (SGOT) (test 20 IU/L 0-40 [...] >59 L Am (test code = mL/min/1.73 20356-9) eGFR If Africn Am 37 >59 L [facility] currently (test code = mL/min/1.73 [place] [address]-9) compliance with the current recommendations of the [employer]. [facility] [place] will update rep orting as new guidelin es are published from the NKF-ASN Task force.
<br/ >Perfor med by:
[facility] [place] ([place])

BUN/Creatinine 22 9-20 H Ratio (test code = 3097-3) Sodium (test code = 142 mmol/L 472-454 2262-2) Potassium (test 4.3 mmol/L 3.5-5.2 code = 2823-3) Chloride (test code 100 mmol/L 96-106 = 2075-0) Carbon Dioxide, 28 mmol/L 20-29 Total (test code = 2027-9) Calcium (test code 9.2 mg/dL 8.7-10.2 = 37160-9) Protein, Total 6.5 g/dL 6.0-8.5 (test code = 2885-2) Albumin (test code 3.5 g/dL 4.0-5.0 L = 1751-7) Globulin, Total 3.0 g/dL 1.5-4.5 (test code = 57750-0) A/G Ratio (test 1.2 1.2-2.2 code = 1759-0) Bilirubin, Total 0.4 mg/dL 0.0-1.2 (test code = 1975-2) Alkaline 107 IU/L 48-121 Effective Phosphatase (test December 09, 2020 code = 6768-6) Alkaline Phos phatase reference inter jamil will be levonrenée garett to: Age Male Female 0 - 5 days 47 - 127 4 7 - 127 6 - 10 days 29 - 242 29 - 242 11 - 2 0 days 109 - 357 109 - 357 21 - 30 days 94 - 494 94 - 494 1 - 2 months 149 - 539 149 - 539 3 - 6 months 131 - 452 131 - 452 7 - 1 1 months 117 - 40 1 117 - 401 12 months - 6 years 158 - 369 158 - 369 7 - 12 year s 150 - 409 150 - 409 13 years 156 - 435 78 - 227 14 years 11 4 - 375 64 - 161 15 yea rs 88 - 279 56 - 134 16 years 74 - 207 51 - 1 21 17 years 63 - 161 47 - 113 18 - 20 yea rs 51 - 125 42 - 106 >20 years 44 - 121 44 - 121

Pe rformed by:
[facility] ([place])

AST (SGOT) (test 20 IU/L 0-40 code = 1920-8) ALT (SGPT) (test 22 IU/L 0-44 code = 1742-6) [facility] Description: Natriuretic peptide B [Mass/volume] in Serum or [id number] 14:32:00 Test Item Value Reference Range Interpretation Comments B-Type Natriuretic Peptide (test 682.3 pg/mL 0.0-100.0 H code = 14527-9) [facility] Description: Natriuretic peptide B [Mass/volume] in Serum or [id number] 14:32:00 Test Item Value Reference Range Interpretation Comments B-Type Natriuretic Peptide (test 682.3 pg/mL 0.0-100.0 H code = 73687-0) [facility] Description: Natriuretic peptide B [Mass/volume] in Serum or [id number] 14:32:00 Test Item Value Reference Range Interpretation Comments B-Type Natriuretic Peptide (test 682.3 pg/mL 0.0-100.0 H code = 09528-3) [facility] Description: Natriuretic peptide B [Mass/volume] in Serum or [id number] 14:32:00 Test Item Value Reference Range Interpretation Comments B-Type Natriuretic Peptide (test 682.3 pg/mL 0.0-100.0 H code = 39975-0) [facility] Description: Natriuretic peptide B [Mass/volume] in Serum or [id number] 14:32:00 Test Item Value Reference Range Interpretation Comments B-Type Natriuretic Peptide (test 682.3 pg/mL 0.0-100.0 H code = 38169-9) [facility] Description: Natriuretic peptide B [Mass/volume] in Serum or [id number] 14:32:00 Test Item Value Reference Range Interpretation Comments B-Type Natriuretic Peptide (test 682.3 pg/mL 0.0-100.0 H code = 32052-8) [facility] Description: Natriuretic peptide B [Mass/volume] in Serum or [id number] 14:32:00 Test Item Value Reference Range Interpretation Comments B-Type Natriuretic Peptide (test 682.3 pg/mL 0.0-100.0 H code = 71388-0) [facility] Description: Natriuretic peptide B [Mass/volume] in Serum or [id number] 14:32:00 Test Item Value Reference Range Interpretation Comments B-Type Natriuretic Peptide (test 682.3 pg/mL 0.0-100.0 H code = 96417-7) [facility] Description: Natriuretic peptide B [Mass/volume] in Serum or [id number] 14:32:00 Test Item Value Reference Range Interpretation Comments B-Type Natriuretic Peptide (test 682.3 pg/mL 0.0-100.0 H code = 24720-4) [facility] Description: Natriuretic peptide B [Mass/volume] in Serum or [id number] 14:32:00 Test Item Value Reference Range Interpretation Comments B-Type Natriuretic Peptide (test 682.3 pg/mL 0.0-100.0 H code = 36474-6) [facility] Description: Natriuretic peptide B [Mass/volume] in Serum or [id number] 14:32:00 Test Item Value Reference Range Interpretation Comments B-Type Natriuretic Peptide (test 682.3 pg/mL 0.0-100.0 H code = 56795-1) [facility] Description: Natriuretic peptide B [Mass/volume] in Serum or [id number] 14:32:00 Test Item Value Reference Range Interpretation Comments B-Type Natriuretic Peptide (test 682.3 pg/mL 0.0-100.0 H code = 90418-7) [facility] Description: Natriuretic peptide B [Mass/volume] in Serum or [id number] 14:32:00 Test Item Value Reference Range Interpretation Comments B-Type Natriuretic Peptide (test 682.3 pg/mL 0.0-100.0 H code = 00954-3) [facility] Description: Natriuretic peptide B [Mass/volume] in Serum or [id number] 14:32:00 Test Item Value Reference Range Interpretation Comments B-Type Natriuretic Peptide (test 682.3 pg/mL 0.0-100.0 H code = 18011-9) [facility] Description: Natriuretic peptide B [Mass/volume] in Serum or [id number] 14:32:00 Test Item Value Reference Range Interpretation Comments B-Type Natriuretic Peptide (test 682.3 pg/mL 0.0-100.0 H code = 76430-4) [facility] Description: Natriuretic peptide B [Mass/volume] in Serum or [id number] 14:32:00 Test Item Value Reference Range Interpretation Comments B-Type Natriuretic Peptide (test 682.3 pg/mL 0.0-100.0 H code = 07062-5) [facility] Description: Natriuretic peptide B [Mass/volume] in Serum or [id number] 14:32:00 Test Item Value Reference Range Interpretation Comments B-Type Natriuretic Peptide (test 682.3 pg/mL 0.0-100.0 H code = 15630-0) [facility] Description: Natriuretic peptide B [Mass/volume] in Serum or [id number] 14:32:00 Test Item Value Reference Range Interpretation Comments B-Type Natriuretic Peptide (test 682.3 pg/mL 0.0-100.0 H code = 04479-1) [facility] Description: Natriuretic peptide B [Mass/volume] in Serum or [id number] 14:32:00 Test Item Value Reference Range Interpretation Comments B-Type Natriuretic Peptide (test 682.3 pg/mL 0.0-100.0 H code = 87634-8) [facility] Description: Natriuretic peptide B [Mass/volume] in Serum or [id number] 14:32:00 Test Item Value Reference Range Interpretation Comments B-Type Natriuretic Peptide (test 682.3 pg/mL 0.0-100.0 H code = 63135-5) [facility] Description: Natriuretic peptide B [Mass/volume] in Serum or [id number] 14:32:00 Test Item Value Reference Range Interpretation Comments B-Type Natriuretic Peptide (test 682.3 pg/mL 0.0-100.0 H code = 01523-6) [facility] Description: Natriuretic peptide B [Mass/volume] in Serum or [id number] 14:32:00 Test Item Value Reference Range Interpretation Comments B-Type Natriuretic Peptide (test 682.3 pg/mL 0.0-100.0 H code = 46691-1) [facility] Description: Parathyrin.intact [Mass/volume] in Serum or [id number] 08:48:00 Test Item Value Reference Range Interpretation Comments PTH, Intact (test code = 2731-8) 147 pg/mL 15-65 H [facility] Description: Parathyrin.intact [Mass/volume] in Serum or [id number] 08:48:00 Test Item Value Reference Range Interpretation Comments PTH, Intact (test code = 2731-8) 147 pg/mL 15-65 H [facility] Description: Parathyrin.intact [Mass/volume] in Serum or [id number] 08:48:00 Test Item Value Reference Range Interpretation Comments PTH, Intact (test code = 2731-8) 147 pg/mL 15-65 H [facility] Description: Parathyrin.intact [Mass/volume] in Serum or [id number] 08:48:00 Test Item Value Reference Range Interpretation Comments PTH, Intact (test code = 2731-8) 147 pg/mL 15-65 H [facility] Description: Parathyrin.intact [Mass/volume] in Serum or [id number] 08:48:00 Test Item Value Reference Range Interpretation Comments PTH, Intact (test code = 2731-8) 147 pg/mL 15-65 H [facility] Description: Parathyrin.intact [Mass/volume] in Serum or [id number] 08:48:00 Test Item Value Reference Range Interpretation Comments PTH, Intact (test code = 2731-8) 147 pg/mL 15-65 H [facility] Description: Parathyrin.intact [Mass/volume] in Serum or [id number] 08:48:00 Test Item Value Reference Range Interpretation Comments PTH, Intact (test code = 2731-8) 147 pg/mL 15-65 H [facility] Description: Parathyrin.intact [Mass/volume] in Serum or [id number] 08:48:00 Test Item Value Reference Range Interpretation Comments PTH, Intact (test code = 2731-8) 147 pg/mL 15-65 H [facility] Description: Parathyrin.intact [Mass/volume] in Serum or [id number] 08:48:00 Test Item Value Reference Range Interpretation Comments PTH, Intact (test code = 2731-8) 147 pg/mL 15-65 H [facility] Description: Parathyrin.intact [Mass/volume] in Serum or [id number] 08:48:00 Test Item Value Reference Range Interpretation Comments PTH, Intact (test code = 2731-8) 147 pg/mL 15-65 H [facility] Description: Parathyrin.intact [Mass/volume] in Serum or [id number] 08:48:00 Test Item Value Reference Range Interpretation Comments PTH, Intact (test code = 2731-8) 147 pg/mL 15-65 H [facility] Description: Parathyrin.intact [Mass/volume] in Serum or [id number] 08:48:00 Test Item Value Reference Range Interpretation Comments PTH, Intact (test code = 2731-8) 147 pg/mL 15-65 H [facility] Description: Parathyrin.intact [Mass/volume] in Serum or [id number] 08:48:00 Test Item Value Reference Range Interpretation Comments PTH, Intact (test code = 2731-8) 147 pg/mL 15-65 H [facility] Description: Parathyrin.intact [Mass/volume] in Serum or [id number] 08:48:00 Test Item Value Reference Range Interpretation Comments PTH, Intact (test code = 2731-8) 147 pg/mL 15-65 H [facility] Description: Parathyrin.intact [Mass/volume] in Serum or [id number] 08:48:00 Test Item Value Reference Range Interpretation Comments PTH, Intact (test code = 2731-8) 147 pg/mL 15-65 H [facility] Description: Parathyrin.intact [Mass/volume] in Serum or [id number] 08:48:00 Test Item Value Reference Range Interpretation Comments PTH, Intact (test code = 2731-8) 147 pg/mL 15-65 H [facility] Description: Parathyrin.intact [Mass/volume] in Serum or [id number] 08:48:00 Test Item Value Reference Range Interpretation Comments PTH, Intact (test code = 2731-8) 147 pg/mL 15-65 H [facility] Description: Parathyrin.intact [Mass/volume] in Serum or [id number] 08:48:00 Test Item Value Reference Range Interpretation Comments PTH, Intact (test code = 2731-8) 147 pg/mL 15-65 H [facility] Description: Parathyrin.intact [Mass/volume] in Serum or Ecffyu9544-33-15 08:48:00 Test Item Value Reference Range Interpretation Comments PTH, Intact (test code = 2731-8) 147 pg/mL 15-65 H [facility] Description: Parathyrin.intact [Mass/volume] in Serum or [id number] 08:48:00 Test Item Value Reference Range Interpretation Comments PTH, Intact (test code = 2731-8) 147 pg/mL 15-65 [facility] Description: Parathyrin.intact [Mass/volume] in Serum or [id number] 08:48:00 Test Item Value Reference Range Interpretation Comments PTH, Intact (test code = 2731-8) 147 pg/mL 15-65 H [facility] Description: Parathyrin.intact [Mass/volume] in Serum or [id number] 08:48:00 Test Item Value Reference Range Interpretation Comments PTH, Intact (test code = 2731-8) 147 pg/mL 15-65 H [facility] Description: Hemoglobin A1c/Hemoglobin.total in Blood 2020-10-30 05:01:00 Test Item Value Reference Range Interpretation Comments Hemoglobin A1c (test code 8.4 % 4.8-5.6 H . Prediabetes: 5.7 - = 4548-4) 6.4 Diabetes: > 6.4 Glycemic contro l for adults with mary ann betes: <7.0

P erformed by:
[facility] ([place])

[facility] Description: Hemoglobin A1c/Hemoglobin.total in Blood 2020-10-30 05:01:00 Test Item Value Reference Range Interpretation Comments Hemoglobin A1c (test code 8.4 % 4.8-5.6 H . Prediabetes: 5.7 - = 4548-4) 6.4 Diabetes: > 6.4 Glycemic contro l for adults with mary ann betes: <7.0

P erformed by:
[facility] ([place])

[facility] Description: Hemoglobin A1c/Hemoglobin.total in Blood 2020-10-30 05:01:00 Test Item Value Reference Range Interpretation Comments Hemoglobin A1c (test code 8.4 % 4.8-5.6 H . Prediabetes: 5.7 - = 4548-4) 6.4 Diabetes: > 6.4 Glycemic contro l for adults with mary ann betes: <7.0

P erformed by:
[facility] ([place])

[facility] Description: Hemoglobin A1c/Hemoglobin.total in Blood 2020-10-30 05:01:00 Test Item Value Reference Range Interpretation Comments Hemoglobin A1c (test code 8.4 % 4.8-5.6 H . Prediabetes: 5.7 - = 4548-4) 6.4 Diabetes: > 6.4 Glycemic contro l for adults with mary ann betes: <7.0

P erformed by:
[facility] ([place])

[facility] Description: Hemoglobin A1c/Hemoglobin.total in Blood 2020-10-30 05:01:00 Test Item Value Reference Range Interpretation Comments Hemoglobin A1c (test code 8.4 % 4.8-5.6 H . Prediabetes: 5.7 - = 4548-4) 6.4 Diabetes: > 6.4 Glycemic contro l for adults with mary ann betes: <7.0

P erformed by:
[facility] ([place])

[facility] Description: Hemoglobin A1c/Hemoglobin.total in Blood 2020-10-30 05:01:00 Test Item Value Reference Range Interpretation Comments Hemoglobin A1c (test code 8.4 % 4.8-5.6 H . Prediabetes: 5.7 - = 4548-4) 6.4 Diabetes: > 6.4 Glycemic contro l for adults with mary ann betes: <7.0

P erformed by:
[facility] ([place])

[facility] Description: Hemoglobin A1c/Hemoglobin.total in Blood 2020-10-30 05:01:00 Test Item Value Reference Range Interpretation Comments Hemoglobin A1c (test code 8.4 % 4.8-5.6 H . Prediabetes: 5.7 - = 4548-4) 6.4 Diabetes: > 6.4 Glycemic contro l for adults with mary ann betes: <7.0

P erformed by:
[facility] (HD)

[facility] Description: Hemoglobin A1c/Hemoglobin.total in Blood 2020-10-30 05:01:00 Test Item Value Reference Range Interpretation Comments Hemoglobin A1c (test code 8.4 % 4.8-5.6 H . Prediabetes: 5.7 - = 4548-4) 6.4 Diabetes: > 6.4 Glycemic contro l for adults with mary ann betes: <7.0

P erformed by:
[facility] (HD)

[facility] Description: Hemoglobin A1c/Hemoglobin.total in Blood 2020-10-30 05:01:00 Test Item Value Reference Range Interpretation Comments Hemoglobin A1c (test code 8.4 % 4.8-5.6 H . Prediabetes: 5.7 - = 4548-4) 6.4 Diabetes: > 6.4 Glycemic contro l for adults with mary ann betes: <7.0

P erformed by:
[facility] [place] ()

[facility] Description: Hemoglobin A1c/Hemoglobin.total in Blood 2020-10-30 05:01:00 Test Item Value Reference Range Interpretation Comments Hemoglobin A1c (test code 8.4 % 4.8-5.6 H . Prediabetes: 5.7 - = 4548-4) 6.4 Diabetes: > 6.4 Glycemic contro l for adults with mary ann betes: <7.0

P erformed by:
[facility] [place] ()

[facility] Description: Hemoglobin A1c/Hemoglobin.total in Blood 2020-10-30 05:01:00 Test Item Value Reference Range Interpretation Comments Hemoglobin A1c (test code 8.4 % 4.8-5.6 H . Prediabetes: 5.7 - = 4548-4) 6.4 Diabetes: > 6.4 Glycemic contro l for adults with mary ann betes: <7.0

P erformed by:
[facility] [place] ()

[facility] Description: Hemoglobin A1c/Hemoglobin.total in Blood 2020-10-30 05:01:00 Test Item Value Reference Range Interpretation Comments Hemoglobin A1c (test code 8.4 % 4.8-5.6 H . Prediabetes: 5.7 - = 4548-4) 6.4 Diabetes: > 6.4 Glycemic contro l for adults with mary ann betes: <7.0

P erformed by:
[facility] [place] ()

[facility] Description: Hemoglobin A1c/Hemoglobin.total in Blood 2020-10-30 05:01:00 Test Item Value Reference Range Interpretation Comments Hemoglobin A1c (test code 8.4 % 4.8-5.6 H . Prediabetes: 5.7 - = 4548-4) 6.4 Diabetes: > 6.4 Glycemic contro l for adults with mary ann betes: <7.0

P erformed by:
[facility] [place] ([place])

[facility] Description: Hemoglobin A1c/Hemoglobin.total in Blood 2020-10-30 05:01:00 Test Item Value Reference Range Interpretation Comments Hemoglobin A1c (test code 8.4 % 4.8-5.6 H . Prediabetes: 5.7 - = 4548-4) 6.4 Diabetes: > 6.4 Glycemic contro l for adults with mary ann betes: <7.0

P erformed by:
[facility] [place] ()

[facility] Description: Hemoglobin A1c/Hemoglobin.total in Blood 2020-10-30 05:01:00 Test Item Value Reference Range Interpretation Comments Hemoglobin A1c (test code 8.4 % 4.8-5.6 H . Prediabetes: 5.7 - = 4548-4) 6.4 Diabetes: > 6.4 Glycemic contro l for adults with mary ann betes: <7.0

P erformed by:
[facility] [place] ()

[facility] Description: Hemoglobin A1c/Hemoglobin.total in Blood 2020-10-30 05:01:00 Test Item Value Reference Range Interpretation Comments Hemoglobin A1c (test code 8.4 % 4.8-5.6 H . Prediabetes: 5.7 - = 4548-4) 6.4 Diabetes: > 6.4 Glycemic contro l for adults with mary ann betes: <7.0

P erformed by:
[facility] [place] ()

[facility] Description: Hemoglobin A1c/Hemoglobin.total in Blood 2020-10-30 05:01:00 Test Item Value Reference Range Interpretation Comments Hemoglobin A1c (test code 8.4 % 4.8-5.6 H . Prediabetes: 5.7 - = 4548-4) 6.4 Diabetes: > 6.4 Glycemic contro l for adults with mary ann betes: <7.0

P erformed by:
[facility] ([place])

[facility] Description: Hemoglobin A1c/Hemoglobin.total in Blood 2020-10-30 05:01:00 Test Item Value Reference Range Interpretation Comments Hemoglobin A1c (test code 8.4 % 4.8-5.6 H . Prediabetes: 5.7 - = 4548-4) 6.4 Diabetes: > 6.4 Glycemic contro l for adults with mary ann betes: <7.0

P erformed by:
[facility] ([place])

[facility] Description: Hemoglobin A1c/Hemoglobin.total in Blood 2020-10-30 05:01:00 Test Item Value Reference Range Interpretation Comments Hemoglobin A1c (test code 8.4 % 4.8-5.6 H . Prediabetes: 5.7 - = 4548-4) 6.4 Diabetes: > 6.4 Glycemic contro l for adults with mary ann betes: <7.0

P erformed by:
[facility] ([place])

[facility] Description: Hemoglobin A1c/Hemoglobin.total in Blood 2020-10-30 05:01:00 Test Item Value Reference Range Interpretation Comments Hemoglobin A1c (test code 8.4 % 4.8-5.6 H . Prediabetes: 5.7 - = 4548-4) 6.4 Diabetes: > 6.4 Glycemic contro l for adults with mary ann betes: <7.0

P erformed by:
[facility] ()

[facility] Description: Hemoglobin A1c/Hemoglobin.total in Blood 2020-10-30 05:01:00 Test Item Value Reference Range Interpretation Comments Hemoglobin A1c (test code 8.4 % 4.8-5.6 H . Prediabetes: 5.7 - = 4548-4) 6.4 Diabetes: > 6.4 Glycemic contro l for adults with mary ann betes: <7.0

P erformed by:
[facility] ([place])

[facility] Description: Hemoglobin A1c/Hemoglobin.total in Blood 2020-10-30 05:01:00 Test Item Value Reference Range Interpretation Comments Hemoglobin A1c (test code 8.4 % 4.8-5.6 H . Prediabetes: 5.7 - = 4548-4) 6.4 Diabetes: > 6.4 Glycemic contro l for adults with mary ann betes: <7.0

P erformed by:
[facility] ([place])

[facility] Description: Microscopic Vxvlhrqkvlr7232-86-73 04:44:00 Test Item Value Reference Range Interpretation Comments WBC (test code = 5821-4) None seen 0-5 RBC (test code = 60024-3) None seen 0-2 Epithelial Cells (non renal) (test None seen 0-10 code = 5787-7) Epithelial Cells (renal) (test code = 86459-4) Casts (test code = 50243-1) None seen None seen Cast Type (test code = 09588-4) Crystals (test code = 5783-6) Crystal Type (test code = 5782-8) Mucus Threads (test code = 8247-9) Bacteria (test code = 5769-5) None seen None seen/Few Yeast (test code = 5822-2) Trichomonas (test code = 5813-1) Comment (test code = 20241-6) [facility] Description: Microscopic Hdpbybhztjz4981-79-17 04:44:00 Test Item Value Reference Range Interpretation Comments WBC (test code = 5821-4) None seen 0-5 RBC (test code = 94686-6) None seen 0-2 Epithelial Cells (non renal) (test None seen 0-10 code = 5787-7) Epithelial Cells (renal) (test code = 26689-6) Casts (test code = 84640-1) None seen None seen Cast Type (test code = 02616-7) Crystals (test code = 5783-6) Crystal Type (test code = 5782-8) Mucus Threads (test code = 8247-9) Bacteria (test code = 5769-5) None seen None seen/Few Yeast (test code = 5822-2) Trichomonas (test code = 5813-1) Comment (test code = 71457-5) [facility] Description: Microscopic Wawrucjcfow9936-87-65 04:44:00 Test Item Value Reference Range Interpretation Comments WBC (test code = 5821-4) None seen 0-5 RBC (test code = 41422-6) None seen 0-2 Epithelial Cells (non renal) (test None seen 0-10 code = 5787-7) Epithelial Cells (renal) (test code = 15530-7) Casts (test code = 51371-7) None seen None seen Cast Type (test code = 71688-8) Crystals (test code = 5783-6) Crystal Type (test code = 5782-8) Mucus Threads (test code = 8247-9) Bacteria (test code = 5769-5) None seen None seen/Few Yeast (test code = 5822-2) Trichomonas (test code = 5813-1) Comment (test code = 63709-1) [facility] Description: Microscopic Nuxqwaqlopj7430-83-83 04:44:00 Test Item Value Reference Range Interpretation Comments WBC (test code = 5821-4) None seen 0-5 RBC (test code = 48784-1) None seen 0-2 Epithelial Cells (non renal) (test None seen 0-10 code = 5787-7) Epithelial Cells (renal) (test code = 79567-8) Casts (test code = 85356-7) None seen None seen Cast Type (test code = 98577-4) Crystals (test code = 5783-6) Crystal Type (test code = 5782-8) Mucus Threads (test code = 8247-9) Bacteria (test code = 5769-5) None seen None seen/Few Yeast (test code = 5822-2) Trichomonas (test code = 5813-1) Comment (test code = 02130-6) [facility] Description: Microscopic Mrmbrdsatym4673-79-21 04:44:00 Test Item Value Reference Range Interpretation Comments WBC (test code = 5821-4) None seen 0-5 RBC (test code = 26937-1) None seen 0-2 Epithelial Cells (non renal) (test None seen 0-10 code = 5787-7) Epithelial Cells (renal) (test code = 95157-4) Casts (test code = 98078-3) None seen None seen Cast Type (test code = 92565-0) Crystals (test code = 5783-6) Crystal Type (test code = 5782-8) Mucus Threads (test code = 8247-9) Bacteria (test code = 5769-5) None seen None seen/Few Yeast (test code = 5822-2) Trichomonas (test code = 5813-1) Comment (test code = 45789-2) [facility] Description: Microscopic Xkjubzmkwpw6157-46-94 04:44:00 Test Item Value Reference Range Interpretation Comments WBC (test code = 5821-4) None seen 0-5 RBC (test code = 42229-9) None seen 0-2 Epithelial Cells (non renal) (test None seen 0-10 code = 5787-7) Epithelial Cells (renal) (test code = 10498-4) Casts (test code = 43021-6) None seen None seen Cast Type (test code = 48608-0) Crystals (test code = 5783-6) Crystal Type (test code = 5782-8) Mucus Threads (test code = 8247-9) Bacteria (test code = 5769-5) None seen None seen/Few Yeast (test code = 5822-2) Trichomonas (test code = 5813-1) Comment (test code = 68730-6) [facility] Description: Microscopic Boipykjtpah3450-56-26 04:44:00 Test Item Value Reference Range Interpretation Comments WBC (test code = 5821-4) None seen 0-5 RBC (test code = 62430-4) None seen 0-2 Epithelial Cells (non renal) (test None seen 0-10 code = 5787-7) Epithelial Cells (renal) (test code = 85902-8) Casts (test code = 94139-0) None seen None seen Cast Type (test code = 73125-0) Crystals (test code = 5783-6) Crystal Type (test code = 5782-8) Mucus Threads (test code = 8247-9) Bacteria (test code = 5769-5) None seen None seen/Few Yeast (test code = 5822-2) Trichomonas (test code = 5813-1) Comment (test code = 77592-1) [facility] Description: Microscopic Juufwzwyjtf6499-59-67 04:44:00 Test Item Value Reference Range Interpretation Comments WBC (test code = 5821-4) None seen 0-5 RBC (test code = 45025-5) None seen 0-2 Epithelial Cells (non renal) (test None seen 0-10 code = 5787-7) Epithelial Cells (renal) (test code = 84565-6) Casts (test code = 09181-0) None seen None seen Cast Type (test code = 91452-4) Crystals (test code = 5783-6) Crystal Type (test code = 5782-8) Mucus Threads (test code = 8247-9) Bacteria (test code = 5769-5) None seen None seen/Few Yeast (test code = 5822-2) Trichomonas (test code = 5813-1) Comment (test code = 38055-1) [facility] Description: Microscopic Gafyxtjdesj5591-63-07 04:44:00 Test Item Value Reference Range Interpretation Comments WBC (test code = 5821-4) None seen 0-5 RBC (test code = 43037-8) None seen 0-2 Epithelial Cells (non renal) (test None seen 0-10 code = 5787-7) Epithelial Cells (renal) (test code = 10200-7) Casts (test code = 17293-1) None seen None seen Cast Type (test code = 18732-7) Crystals (test code = 5783-6) Crystal Type (test code = 5782-8) Mucus Threads (test code = 8247-9) Bacteria (test code = 5769-5) None seen None seen/Few Yeast (test code = 5822-2) Trichomonas (test code = 5813-1) Comment (test code = 72033-4) [facility] Description: Microscopic Faqdpbxfogl6590-30-64 04:44:00 Test Item Value Reference Range Interpretation Comments WBC (test code = 5821-4) None seen 0-5 RBC (test code = 05560-6) None seen 0-2 Epithelial Cells (non renal) (test None seen 0-10 code = 5787-7) Epithelial Cells (renal) (test code = 98289-4) Casts (test code = 75411-8) None seen None seen Cast Type (test code = 80447-7) Crystals (test code = 5783-6) Crystal Type (test code = 5782-8) Mucus Threads (test code = 8247-9) Bacteria (test code = 5769-5) None seen None seen/Few Yeast (test code = 5822-2) Trichomonas (test code = 5813-1) Comment (test code = 27256-6) [facility] Description: Microscopic Vmobfjpdawz4021-64-60 04:44:00 Test Item Value Reference Range Interpretation Comments WBC (test code = 5821-4) None seen 0-5 RBC (test code = 03686-9) None seen 0-2 Epithelial Cells (non renal) (test None seen 0-10 code = 5787-7) Epithelial Cells (renal) (test code = 81581-6) Casts (test code = 68742-4) None seen None seen Cast Type (test code = 58736-5) Crystals (test code = 5783-6) Crystal Type (test code = 5782-8) Mucus Threads (test code = 8247-9) Bacteria (test code = 5769-5) None seen None seen/Few Yeast (test code = 5822-2) Trichomonas (test code = 5813-1) Comment (test code = 31627-8) [facility] Description: Microscopic Zdsgjquafvx6659-82-36 04:44:00 Test Item Value Reference Range Interpretation Comments WBC (test code = 5821-4) None seen 0-5 RBC (test code = 00859-6) None seen 0-2 Epithelial Cells (non renal) (test None seen 0-10 code = 5787-7) Epithelial Cells (renal) (test code = 84067-3) Casts (test code = 94177-3) None seen None seen Cast Type (test code = 81407-0) Crystals (test code = 5783-6) Crystal Type (test code = 5782-8) Mucus Threads (test code = 8247-9) Bacteria (test code = 5769-5) None seen None seen/Few Yeast (test code = 5822-2) Trichomonas (test code = 5813-1) Comment (test code = 41407-2) [facility] Description: Microscopic Iekxlfjgxoq6699-75-12 04:44:00 Test Item Value Reference Range Interpretation Comments WBC (test code = 5821-4) None seen 0-5 RBC (test code = 17440-9) None seen 0-2 Epithelial Cells (non renal) (test None seen 0-10 code = 5787-7) Epithelial Cells (renal) (test code = 69142-5) Casts (test code = 34807-5) None seen None seen Cast Type (test code = 14943-0) Crystals (test code = 5783-6) Crystal Type (test code = 5782-8) Mucus Threads (test code = 8247-9) Bacteria (test code = 5769-5) None seen None seen/Few Yeast (test code = 5822-2) Trichomonas (test code = 5813-1) Comment (test code = 67964-5) [facility] Description: Microscopic Hdxahqleoyi3857-16-05 04:44:00 Test Item Value Reference Range Interpretation Comments WBC (test code = 5821-4) None seen 0-5 RBC (test code = 53639-1) None seen 0-2 Epithelial Cells (non renal) (test None seen 0-10 code = 5787-7) Epithelial Cells (renal) (test code = 90997-2) Casts (test code = 06290-5) None seen None seen Cast Type (test code = 84579-4) Crystals (test code = 5783-6) Crystal Type (test code = 5782-8) Mucus Threads (test code = 8247-9) Bacteria (test code = 5769-5) None seen None seen/Few Yeast (test code = 5822-2) Trichomonas (test code = 5813-1) Comment (test code = 56408-7) [facility] Description: Microscopic Zdjqalojblv7632-29-82 04:44:00 Test Item Value Reference Range Interpretation Comments WBC (test code = 5821-4) None seen 0-5 RBC (test code = 86152-8) None seen 0-2 Epithelial Cells (non renal) (test None seen 0-10 code = 5787-7) Epithelial Cells (renal) (test code = 89123-8) Casts (test code = 28857-4) None seen None seen Cast Type (test code = 40761-7) Crystals (test code = 5783-6) Crystal Type (test code = 5782-8) Mucus Threads (test code = 8247-9) Bacteria (test code = 5769-5) None seen None seen/Few Yeast (test code = 5822-2) Trichomonas (test code = 5813-1) Comment (test code = 05278-1) [facility] Description: Microscopic Eilcskjbjng5321-39-22 04:44:00 Test Item Value Reference Range Interpretation Comments WBC (test code = 5821-4) None seen 0-5 RBC (test code = 53067-8) None seen 0-2 Epithelial Cells (non renal) (test None seen 0-10 code = 5787-7) Epithelial Cells (renal) (test code = 43526-4) Casts (test code = 73591-7) None seen None seen Cast Type (test code = 58522-1) Crystals (test code = 5783-6) Crystal Type (test code = 5782-8) Mucus Threads (test code = 8247-9) Bacteria (test code = 5769-5) None seen None seen/Few Yeast (test code = 5822-2) Trichomonas (test code = 5813-1) Comment (test code = 09691-2) [facility] Description: Microscopic Gkwvkqzhheu8296-20-25 04:44:00 Test Item Value Reference Range Interpretation Comments WBC (test code = 5821-4) None seen 0-5 RBC (test code = 74419-8) None seen 0-2 Epithelial Cells (non renal) (test None seen 0-10 code = 5787-7) Epithelial Cells (renal) (test code = 15832-1) Casts (test code = 75989-2) None seen None seen Cast Type (test code = 58524-3) Crystals (test code = 5783-6) Crystal Type (test code = 5782-8) Mucus Threads (test code = 8247-9) Bacteria (test code = 5769-5) None seen None seen/Few Yeast (test code = 5822-2) Trichomonas (test code = 5813-1) Comment (test code = 77318-8) [facility] Description: Microscopic Rcoyznuktqv3326-90-77 04:44:00 Test Item Value Reference Range Interpretation Comments WBC (test code = 5821-4) None seen 0-5 RBC (test code = 15627-2) None seen 0-2 Epithelial Cells (non renal) (test None seen 0-10 code = 5787-7) Epithelial Cells (renal) (test code = 95000-9) Casts (test code = 87105-5) None seen None seen Cast Type (test code = 42315-4) Crystals (test code = 5783-6) Crystal Type (test code = 5782-8) Mucus Threads (test code = 8247-9) Bacteria (test code = 5769-5) None seen None seen/Few Yeast (test code = 5822-2) Trichomonas (test code = 5813-1) Comment (test code = 56410-4) [facility] Description: Microscopic Aazrmefrwwo1993-09-25 04:44:00 Test Item Value Reference Range Interpretation Comments WBC (test code = 5821-4) None seen 0-5 RBC (test code = 99409-5) None seen 0-2 Epithelial Cells (non renal) (test None seen 0-10 code = 5787-7) Epithelial Cells (renal) (test code = 32182-5) Casts (test code = 79315-9) None seen None seen Cast Type (test code = 41659-1) Crystals (test code = 5783-6) Crystal Type (test code = 5782-8) Mucus Threads (test code = 8247-9) Bacteria (test code = 5769-5) None seen None seen/Few Yeast (test code = 5822-2) Trichomonas (test code = 5813-1) Comment (test code = 66373-4) [facility] Description: Microscopic Efnexqxlywx6717-48-81 04:44:00 Test Item Value Reference Range Interpretation Comments WBC (test code = 5821-4) None seen 0-5 RBC (test code = 36236-0) None seen 0-2 Epithelial Cells (non renal) (test None seen 0-10 code = 5787-7) Epithelial Cells (renal) (test code = 49788-0) Casts (test code = 71728-6) None seen None seen Cast Type (test code = 40070-2) Crystals (test code = 5783-6) Crystal Type (test code = 5782-8) Mucus Threads (test code = 8247-9) Bacteria (test code = 5769-5) None seen None seen/Few Yeast (test code = 5822-2) Trichomonas (test code = 5813-1) Comment (test code = 14472-5) [facility] Description: Microscopic Nqxphikyupt4770-02-48 04:44:00 Test Item Value Reference Range Interpretation Comments WBC (test code = 5821-4) None seen 0-5 RBC (test code = 87668-1) None seen 0-2 Epithelial Cells (non renal) (test None seen 0-10 code = 5787-7) Epithelial Cells (renal) (test code = 69704-4) Casts (test code = 44814-0) None seen None seen Cast Type (test code = 14069-2) Crystals (test code = 5783-6) Crystal Type (test code = 5782-8) Mucus Threads (test code = 8247-9) Bacteria (test code = 5769-5) None seen None seen/Few Yeast (test code = 5822-2) Trichomonas (test code = 5813-1) Comment (test code = 40188-7) [facility] Description: Microscopic Duhszuoygsw8169-12-56 04:44:00 Test Item Value Reference Range Interpretation Comments WBC (test code = 5821-4) None seen 0-5 RBC (test code = 67847-1) None seen 0-2 Epithelial Cells (non renal) (test None seen 0-10 code = 5787-7) Epithelial Cells (renal) (test code = 76661-7) Casts (test code = 76430-4) None seen None seen Cast Type (test code = 99815-8) Crystals (test code = 5783-6) Crystal Type (test code = 5782-8) Mucus Threads (test code = 8247-9) Bacteria (test code = 5769-5) None seen None seen/Few Yeast (test code = 5822-2) Trichomonas (test code = 5813-1) Comment (test code = 33648-8) [facility] Description: Urinalysis, Igcxxukh0825-27-99 04:43:00 Test Item Value Reference Range Interpretation Comments Specific [place] (test 1.012 1.005-1.030 code = 2965-2) pH (test code = 5.5 5.0-7.5 5803-2) Urine-Color (test code Yellow Yellow = 5778-6) Appearance (test code Clear Clear = 5767-9) WBC Esterase (test Negative Negative code = 5799-2) Protein (test code = 4+ Negative/Trace A 66000-1) Glucose (test code = Trace Negative A 2349-9) Ketones (test code = Negative Negative 2514-8) Occult Blood (test Trace Negative A code = 5794-3) Bilirubin (test code = Negative Negative 5770-3) Urobilinogen,Semi-Qn 0.2 mg/dL 0.2-1.0 (test code = 40350-3) Nitrite, Urine (test Negative Negative code = 5802-4) Microscopic See below: Microscopic was Examination (test code indic ated and was = 40034-7) performed.

P erformed by:
[facility] [place] ()

[facility] Description: Urinalysis, Ssharqku0497-49-02 04:43:00 Test Item Value Reference Range Interpretation Comments Specific [place] (test 1.012 1.005-1.030 code = 2965-2) pH (test code = 5.5 5.0-7.5 5803-2) Urine-Color (test code Yellow Yellow = 5778-6) Appearance (test code Clear Clear = 5767-9) WBC Esterase (test Negative Negative code = 5799-2) Protein (test code = 4+ Negative/Trace A 47309-8) Glucose (test code = Trace Negative A 2349-9) Ketones (test code = Negative Negative 2514-8) Occult Blood (test Trace Negative A code = 5794-3) Bilirubin (test code = Negative Negative 5770-3) Urobilinogen,Semi-Qn 0.2 mg/dL 0.2-1.0 (test code = 01405-0) Nitrite, Urine (test Negative Negative code = 5802-4) Microscopic See below: Microscopic was Examination (test code indic ated and was = 62302-6) performed.

P erformed by:
[facility] [place] ()

[facility] Description: Urinalysis, Xcbkfhsu7413-91-96 04:43:00 Test Item Value Reference Range Interpretation Comments Specific [place] (test 1.012 1.005-1.030 code = 2965-2) pH (test code = 5.5 5.0-7.5 5803-2) Urine-Color (test code Yellow Yellow = 5778-6) Appearance (test code Clear Clear = 5767-9) WBC Esterase (test Negative Negative code = 5799-2) Protein (test code = 4+ Negative/Trace A 22181-3) Glucose (test code = Trace Negative A 2349-9) Ketones (test code = Negative Negative 2514-8) Occult Blood (test Trace Negative A code = 5794-3) Bilirubin (test code = Negative Negative 5770-3) Urobilinogen,Semi-Qn 0.2 mg/dL 0.2-1.0 (test code = 72166-7) Nitrite, Urine (test Negative Negative code = 5802-4) Microscopic See below: Microscopic was Examination (test code indic ronaldo isbell was = 57806-5) performed.

P erformed by:
[facility] [place] ()

[facility] Description: Urinalysis, [id number] 04:43:00 Test Item Value Reference Range Interpretation Comments Specific [place] (test 1.012 1.005-1.030 code = 2965-2) pH (test code = 5.5 5.0-7.5 5803-2) Urine-Color (test code Yellow Yellow = 5778-6) Appearance (test code Clear Clear = 5767-9) WBC Esterase (test Negative Negative code = 5799-2) Protein (test code = 4+ Negative/Trace A 42474-3) Glucose (test code = Trace Negative A 2349-9) Ketones (test code = Negative Negative 2514-8) Occult Blood (test Trace Negative A code = 5794-3) Bilirubin (test code = Negative Negative 5770-3) Urobilinogen,Semi-Qn 0.2 mg/dL 0.2-1.0 (test code = 62689-2) Nitrite, Urine (test Negative Negative code = 5802-4) Microscopic See below: Microscopic was Examination (test code indic ated and was = 57828-2) performed.

P erformed by:
[facility] [place] ()

[facility] Description: Urinalysis, [id number] 04:43:00 Test Item Value Reference Range Interpretation Comments Specific [place] (test 1.012 1.005-1.030 code = 2965-2) pH (test code = 5.5 5.0-7.5 5803-2) Urine-Color (test code Yellow Yellow = 5778-6) Appearance (test code Clear Clear = 5767-9) WBC Esterase (test Negative Negative code = 5799-2) Protein (test code = 4+ Negative/Trace A 38536-9) Glucose (test code = Trace Negative A 2349-9) Ketones (test code = Negative Negative 2514-8) Occult Blood (test Trace Negative A code = 5794-3) Bilirubin (test code = Negative Negative 5770-3) Urobilinogen,Semi-Qn 0.2 mg/dL 0.2-1.0 (test code = 20580-4) Nitrite, Urine (test Negative Negative code = 5802-4) Microscopic See below: Microscopic was Examination (test code indic ated and was = 35300-1) performed.

P erformed by:
[facility] [place] ()

[facility] Description: Urinalysis, [id number] 04:43:00 Test Item Value Reference Range Interpretation Comments Specific [place] (test 1.012 1.005-1.030 code = 2965-2) pH (test code = 5.5 5.0-7.5 5803-2) Urine-Color (test code Yellow Yellow = 5778-6) Appearance (test code Clear Clear = 5767-9) WBC Esterase (test Negative Negative code = 5799-2) Protein (test code = 4+ Negative/Trace A 01227-4) Glucose (test code = Trace Negative A 2349-9) Ketones (test code = Negative Negative 2514-8) Occult Blood (test Trace Negative A code = 5794-3) Bilirubin (test code = Negative Negative 5770-3) Urobilinogen,Semi-Qn 0.2 mg/dL 0.2-1.0 (test code = 29581-2) Nitrite, Urine (test Negative Negative code = 5802-4) Microscopic See below: Microscopic was Examination (test code indic ated and was = 37568-0) performed.

P erformed by:
[facility] [place] ()

[facility] Description: Urinalysis, [id number] 04:43:00 Test Item Value Reference Range Interpretation Comments Specific [place] (test 1.012 1.005-1.030 code = 2965-2) pH (test code = 5.5 5.0-7.5 5803-2) Urine-Color (test code Yellow Yellow = 5778-6) Appearance (test code Clear Clear = 5767-9) WBC Esterase (test Negative Negative code = 5799-2) Protein (test code = 4+ Negative/Trace A 58984-5) Glucose (test code = Trace Negative A 2349-9) Ketones (test code = Negative Negative 2514-8) Occult Blood (test Trace Negative A code = 5794-3) Bilirubin (test code = Negative Negative 5770-3) Urobilinogen,Semi-Qn 0.2 mg/dL 0.2-1.0 (test code = 99948-2) Nitrite, Urine (test Negative Negative code = 5802-4) Microscopic See below: Microscopic was Examination (test code indic ated and was = 95250-8) performed.

P erformed by:
[facility] [employer] [facility] [place] ()

[facility] Description: Urinalysis, [id number] 04:43:00 Test Item Value Reference Range Interpretation Comments Specific [place] (test 1.012 1.005-1.030 code = 2965-2) pH (test code = 5.5 5.0-7.5 5803-2) Urine-Color (test code Yellow Yellow = 5778-6) Appearance (test code Clear Clear = 5767-9) WBC Esterase (test Negative Negative code = 5799-2) Protein (test code = 4+ Negative/Trace A 24011-7) Glucose (test code = Trace Negative A 2349-9) Ketones (test code = Negative Negative 2514-8) Occult Blood (test Trace Negative A code = 5794-3) Bilirubin (test code = Negative Negative 5770-3) Urobilinogen,Semi-Qn 0.2 mg/dL 0.2-1.0 (test code = 47756-3) Nitrite, Urine (test Negative Negative code = 5802-4) Microscopic See below: Microscopic was Examination (test code indic ated and was = 95322-5) performed.

P erformed by:
[employer] ()

[facility] Description: Urinalysis, [id number] 04:43:00 Test Item Value Reference Range Interpretation Comments Specific [place] (test 1.012 1.005-1.030 code = 2965-2) pH (test code = 5.5 5.0-7.5 5803-2) Urine-Color (test code Yellow Yellow = 5778-6) Appearance (test code Clear Clear = 5767-9) WBC Esterase (test Negative Negative code = 5799-2) Protein (test code = 4+ Negative/Trace A 07205-2) Glucose (test code = Trace Negative A 2349-9) Ketones (test code = Negative Negative 2514-8) Occult Blood (test Trace Negative A code = 5794-3) Bilirubin (test code = Negative Negative 5770-3) Urobilinogen,Semi-Qn 0.2 mg/dL 0.2-1.0 (test code = 24246-7) Nitrite, Urine (test Negative Negative code = 5802-4) Microscopic See below: Microscopic was Examination (test code indic ated and was = 76876-5) performed.

P erformed by:
[facility] [employer] ()

[facility] Description: Urinalysis, [id number] 04:43:00 Test Item Value Reference Range Interpretation Comments Specific [place] (test 1.012 1.005-1.030 code = 2965-2) pH (test code = 5.5 5.0-7.5 5803-2) Urine-Color (test code Yellow Yellow = 5778-6) Appearance (test code Clear Clear = 5767-9) WBC Esterase (test Negative Negative code = 5799-2) Protein (test code = 4+ Negative/Trace A 89780-8) Glucose (test code = Trace Negative A 2349-9) Ketones (test code = Negative Negative 2514-8) Occult Blood (test Trace Negative A code = 5794-3) Bilirubin (test code = Negative Negative 5770-3) Urobilinogen,Semi-Qn 0.2 mg/dL 0.2-1.0 (test code = 18372-4) Nitrite, Urine (test Negative Negative code = 5802-4) Microscopic See below: Microscopic was Examination (test code indic ated and was = 54587-9) performed.

P erformed by:
[employer] [facility] ()

[facility] Description: Urinalysis, [id number] 04:43:00 Test Item Value Reference Range Interpretation Comments Specific [place] (test 1.012 1.005-1.030 code = 2965-2) pH (test code = 5.5 5.0-7.5 5803-2) Urine-Color (test code Yellow Yellow = 5778-6) Appearance (test code Clear Clear = 5767-9) WBC Esterase (test Negative Negative code = 5799-2) Protein (test code = 4+ Negative/Trace A 14322-3) Glucose (test code = Trace Negative A 2349-9) Ketones (test code = Negative Negative 2514-8) Occult Blood (test Trace Negative A code = 5794-3) Bilirubin (test code = Negative Negative 5770-3) Urobilinogen,Semi-Qn 0.2 mg/dL 0.2-1.0 (test code = 74503-4) Nitrite, Urine (test Negative Negative code = 5802-4) Microscopic See below: Microscopic was Examination (test code indic ated and was = 85820-0) performed.

P erformed by:
[facility] ()

[facility] Description: Urinalysis, [id number] 04:43:00 Test Item Value Reference Range Interpretation Comments Specific [place] (test 1.012 1.005-1.030 code = 2965-2) pH (test code = 5.5 5.0-7.5 5803-2) Urine-Color (test code Yellow Yellow = 5778-6) Appearance (test code Clear Clear = 5767-9) WBC Esterase (test Negative Negative code = 5799-2) Protein (test code = 4+ Negative/Trace A 46696-6) Glucose (test code = Trace Negative A 2349-9) Ketones (test code = Negative Negative 2514-8) Occult Blood (test Trace Negative A code = 5794-3) Bilirubin (test code = Negative Negative 5770-3) Urobilinogen,Semi-Qn 0.2 mg/dL 0.2-1.0 (test code = 21875-2) Nitrite, Urine (test Negative Negative code = 5802-4) Microscopic See below: Microscopic was Examination (test code indic ated and was = 04148-9) performed.

P erformed by:
[facility] [place] ()

[facility] Description: Urinalysis, [id number] 04:43:00 Test Item Value Reference Range Interpretation Comments Specific [place] (test 1.012 1.005-1.030 code = 2965-2) pH (test code = 5.5 5.0-7.5 5803-2) Urine-Color (test code Yellow Yellow = 5778-6) Appearance (test code Clear Clear = 5767-9) WBC Esterase (test Negative Negative code = 5799-2) Protein (test code = 4+ Negative/Trace A 67475-8) Glucose (test code = Trace Negative A 2349-9) Ketones (test code = Negative Negative 2514-8) Occult Blood (test Trace Negative A code = 5794-3) Bilirubin (test code = Negative Negative 5770-3) Urobilinogen,Semi-Qn 0.2 mg/dL 0.2-1.0 (test code = 36074-7) Nitrite, Urine (test Negative Negative code = 5802-4) Microscopic See below: Microscopic was Examination (test code indic ated and was = 87962-6) performed.

P erformed by:
[facility] [place] ()

[facility] Description: Urinalysis, [id number] 04:43:00 Test Item Value Reference Range Interpretation Comments Specific [place] (test 1.012 1.005-1.030 code = 2965-2) pH (test code = 5.5 5.0-7.5 5803-2) Urine-Color (test code Yellow Yellow = 5778-6) Appearance (test code Clear Clear = 5767-9) WBC Esterase (test Negative Negative code = 5799-2) Protein (test code = 4+ Negative/Trace A 77944-8) Glucose (test code = Trace Negative A 2349-9) Ketones (test code = Negative Negative 2514-8) Occult Blood (test Trace Negative A code = 5794-3) Bilirubin (test code = Negative Negative 5770-3) Urobilinogen,Semi-Qn 0.2 mg/dL 0.2-1.0 (test code = 52443-6) Nitrite, Urine (test Negative Negative code = 5802-4) Microscopic See below: Microscopic was Examination (test code indic ated and was = 39635-0) performed.

P erformed by:
[facility] [place] ()

[facility] Description: Urinalysis, [id number] 04:43:00 Test Item Value Reference Range Interpretation Comments Specific [place] (test 1.012 1.005-1.030 code = 2965-2) pH (test code = 5.5 5.0-7.5 5803-2) Urine-Color (test code Yellow Yellow = 5778-6) Appearance (test code Clear Clear = 5767-9) WBC Esterase (test Negative Negative code = 5799-2) Protein (test code = 4+ Negative/Trace A 01484-8) Glucose (test code = Trace Negative A 2349-9) Ketones (test code = Negative Negative 2514-8) Occult Blood (test Trace Negative A code = 5794-3) Bilirubin (test code = Negative Negative 5770-3) Urobilinogen,Semi-Qn 0.2 mg/dL 0.2-1.0 (test code = 01545-5) Nitrite, Urine (test Negative Negative code = 5802-4) Microscopic See below: Microscopic was Examination (test code indic ated and was = 96486-9) performed.

P erformed by:
[facility] [place] ()

[facility] Description: Urinalysis, [id number] 04:43:00 Test Item Value Reference Range Interpretation Comments Specific [place] (test 1.012 1.005-1.030 code = 2965-2) pH (test code = 5.5 5.0-7.5 5803-2) Urine-Color (test code Yellow Yellow = 5778-6) Appearance (test code Clear Clear = 5767-9) WBC Esterase (test Negative Negative code = 5799-2) Protein (test code = 4+ Negative/Trace A 24487-1) Glucose (test code = Trace Negative A 2349-9) Ketones (test code = Negative Negative 2514-8) Occult Blood (test Trace Negative A code = 5794-3) Bilirubin (test code = Negative Negative 5770-3) Urobilinogen,Semi-Qn 0.2 mg/dL 0.2-1.0 (test code = 79552-2) Nitrite, Urine (test Negative Negative code = 5802-4) Microscopic See below: Microscopic was Examination (test code indic ated and was = 68877-6) performed.

P erformed by:
[facility] [place] ()

[facility] Description: Urinalysis, [id number] 04:43:00 Test Item Value Reference Range Interpretation Comments Specific [place] (test 1.012 1.005-1.030 code = 2965-2) pH (test code = 5.5 5.0-7.5 5803-2) Urine-Color (test code Yellow Yellow = 5778-6) Appearance (test code Clear Clear = 5767-9) WBC Esterase (test Negative Negative code = 5799-2) Protein (test code = 4+ Negative/Trace A 88380-4) Glucose (test code = Trace Negative A 2349-9) Ketones (test code = Negative Negative 2514-8) Occult Blood (test Trace Negative A code = 5794-3) Bilirubin (test code = Negative Negative 5770-3) Urobilinogen,Semi-Qn 0.2 mg/dL 0.2-1.0 (test code = 35235-8) Nitrite, Urine (test Negative Negative code = 5802-4) Microscopic See below: Microscopic was Examination (test code indic ated and was = 44707-5) performed.

P erformed by:
[employer] ()

[facility] Description: Urinalysis, [id number] 04:43:00 Test Item Value Reference Range Interpretation Comments Specific [place] (test 1.012 1.005-1.030 code = 2965-2) pH (test code = 5.5 5.0-7.5 5803-2) Urine-Color (test code Yellow Yellow = 5778-6) Appearance (test code Clear Clear = 5767-9) WBC Esterase (test Negative Negative code = 5799-2) Protein (test code = 4+ Negative/Trace A 77430-5) Glucose (test code = Trace Negative A 2349-9) Ketones (test code = Negative Negative 2514-8) Occult Blood (test Trace Negative A code = 5794-3) Bilirubin (test code = Negative Negative 5770-3) Urobilinogen,Semi-Qn 0.2 mg/dL 0.2-1.0 (test code = 23599-0) Nitrite, Urine (test Negative Negative code = 5802-4) Microscopic See below: Microscopic was Examination (test code indic ated and was = 98404-4) performed.

P erformed by:
[facility] ()

[facility] Description: Urinalysis, [id number] 04:43:00 Test Item Value Reference Range Interpretation Comments Specific [place] (test 1.012 1.005-1.030 code = 2965-2) pH (test code = 5.5 5.0-7.5 5803-2) Urine-Color (test code Yellow Yellow = 5778-6) Appearance (test code Clear Clear = 5767-9) WBC Esterase (test Negative Negative code = 5799-2) Protein (test code = 4+ Negative/Trace A 88095-8) Glucose (test code = Trace Negative A 2349-9) Ketones (test code = Negative Negative 2514-8) Occult Blood (test Trace Negative A code = 5794-3) Bilirubin (test code = Negative Negative 5770-3) Urobilinogen,Semi-Qn 0.2 mg/dL 0.2-1.0 (test code = 06271-6) Nitrite, Urine (test Negative Negative code = 5802-4) Microscopic See below: Microscopic was Examination (test code indic ated and was = 75768-5) performed.

P erformed by:
[employer] ()

[facility] Description: Urinalysis, [id number] 04:43:00 Test Item Value Reference Range Interpretation Comments Specific [place] (test 1.012 1.005-1.030 code = 2965-2) pH (test code = 5.5 5.0-7.5 5803-2) Urine-Color (test code Yellow Yellow = 5778-6) Appearance (test code Clear Clear = 5767-9) WBC Esterase (test Negative Negative code = 5799-2) Protein (test code = 4+ Negative/Trace A 35610-5) Glucose (test code = Trace Negative A 2349-9) Ketones (test code = Negative Negative 2514-8) Occult Blood (test Trace Negative A code = 5794-3) Bilirubin (test code = Negative Negative 5770-3) Urobilinogen,Semi-Qn 0.2 mg/dL 0.2-1.0 (test code = 95848-4) Nitrite, Urine (test Negative Negative code = 5802-4) Microscopic See below: Microscopic was Examination (test code indic ated and was = 70968-6) performed.

P erformed by:
[employer] ()

[facility] Description: Urinalysis, [id number] 04:43:00 Test Item Value Reference Range Interpretation Comments Specific [place] (test 1.012 1.005-1.030 code = 2965-2) pH (test code = 5.5 5.0-7.5 5803-2) Urine-Color (test code Yellow Yellow = 5778-6) Appearance (test code Clear Clear = 5767-9) WBC Esterase (test Negative Negative code = 5799-2) Protein (test code = 4+ Negative/Trace A 41619-4) Glucose (test code = Trace Negative A 2349-9) Ketones (test code = Negative Negative 2514-8) Occult Blood (test Trace Negative A code = 5794-3) Bilirubin (test code = Negative Negative 5770-3) Urobilinogen,Semi-Qn 0.2 mg/dL 0.2-1.0 (test code = 89653-9) Nitrite, Urine (test Negative Negative code = 5802-4) Microscopic See below: Microscopic was Examination (test code indic ated and was = 35585-6) performed.

P erformed by:
[facility] [place] ()

[facility] Description: Urinalysis, [id number] 04:43:00 Test Item Value Reference Range Interpretation Comments Specific [place] (test 1.012 1.005-1.030 code = 2965-2) pH (test code = 5.5 5.0-7.5 5803-2) Urine-Color (test code Yellow Yellow = 5778-6) Appearance (test code Clear Clear = 5767-9) WBC Esterase (test Negative Negative code = 5799-2) Protein (test code = 4+ Negative/Trace A 49577-5) Glucose (test code = Trace Negative A 2349-9) Ketones (test code = Negative Negative 2514-8) Occult Blood (test Trace Negative A code = 5794-3) Bilirubin (test code = Negative Negative 5770-3) Urobilinogen,Semi-Qn 0.2 mg/dL 0.2-1.0 (test code = 85882-4) Nitrite, Urine (test Negative Negative code = 5802-4) Microscopic See below: Microscopic was Examination (test code indic yingd and was = 26477-5) performed.

P erformed by:
[facility] [place] ()

[facility] Description: Urinalysis, [id number] 04:43:00 Microscopic Examination[facility] Description: Urinalysis, Complete 2020-10-30 04:43:00Microscopic Examination[facility] Description: Urinalysis, [id number] 04:43:00Microscopic [facility] Description: Urinalysis, [id number] 04:43:00Microscopic Examination [facility] Description: Urinalysis, [id number] 04:43:00 Microscopic Examination[facility] Description: Urinalysis, Complete 2020-10-30 04:43:00Microscopic [facility] Description: Urinalysis, [id number] 04:43:00Microscopic Examination[facility] Description: Urinalysis, [id number] 04:43:00Microscopic Examination [facility] Description: Urinalysis, [id number] 04:43:00 Microscopic Examination[facility] Description: Urinalysis, Complete 2020-10-30 04:43:00Microscopic Examination[facility] Description: Urinalysis, [id number] 04:43:00Microscopic Examination[facility] Description: Urinalysis, [id number] 04:43:00Microscopic Examination [facility] Description: Urinalysis, Zcpyysun1933-75-18 04:43:00 Microscopic Examination[facility] Description: Urinalysis, Complete 2020-10-30 04:43:00Microscopic Examination[facility] Description: Urinalysis, [id number] 04:43:00Microscopic Examination[facility] Description: Urinalysis, Zmrpftyn2822-08-20 04:43:00Microscopic Examination [facility] Description: Urinalysis, [id number] 04:43:00 Microscopic Examination[facility] Description: Urinalysis, Complete 2020-10-30 04:43:00Microscopic Examination[facility] Description: Urinalysis, [id number] 04:43:00Microscopic Examination[facility] Description: Urinalysis, [id number] 04:43:00Microscopic Examination [facility] Description: Urinalysis, [id number] 04:43:00 Microscopic Examination[facility] Description: Urinalysis, Complete 2020-10-30 04:43:00Microscopic ExaminationAccessHealth[facility] Description: 25- hydroxyvitamin D3 [Mass/volume] in Serum or [id number] 04:26:00 Test Item Value Reference Range Interpretation Comments Vitamin D, 12.0 ng/mL 30.0-100.0 L Vitamin D defic iency has 25-Hydroxy (test been define d by the code = 80996-8) [place] [employer] and an Endocrine [facility] practice guidel ine as alevel of serum 25-OH vitamin D less than 20 ng/mL (1,2).The Endocrine Society went on to further define vitamin Dinsufficiency as a level between 21 and 29 ng/mL (2).1. IOM (Ins titute of Medicine). 2010 . Dietary reference intak es for calcium and D. [place]: [employer] .2. Dileep MF, Ela SANTA, Stephane blake EMERSON, et al. Evaluation, treatment, and prevention of vitamin D de ficiency: an Endocrine [facility] clinical practi ce guideline. JCEM . 2010; 96(7):1911-30.& lt;br/>
Performed by:
[facility] ()

[facility] Description: 25-hydroxyvitamin D3 [Mass/volume] in Serum or [id number] 04:26:00 Test Item Value Reference Range Interpretation Comments Vitamin D, 12.0 ng/mL 30.0-100.0 L Vitamin D defic iency has 25-Hydroxy (test been define d by the code = 32078-3) [employer] [employer] and an Endocrine [facility] practice guidel ine as alevel of serum 25-OH vitamin D less than 20 ng/mL (1,2).The Endocrine Society went on to further define vitamin Dinsufficiency as a level between 21 and 29 ng/mL (2).1. IOM (Ins titute of Medicine). 2010 . Dietary reference intak es for calcium and D. [facility]: [employer] .2. Ela Oliveros, Stephane EMERSON, et al. Evaluation, treatment, and prevention of vitamin D de ficiency: an Endocrine [facility] clinical practi ce guideline. JCEM . 2010; 96(7):191-.& lt;br/>
Performed by:
[facility] ([place])

[facility] Description: 25-hydroxyvitamin D3 [Mass/volume] in Serum or [id number] 04:26:00 Test Item Value Reference Range Interpretation Comments Vitamin D, 12.0 ng/mL 30.0-100.0 L Vitamin D defic iency has 25-Hydroxy (test been define d by the code = 64598-2) [employer] [employer] and an Endocrine [facility] practice guidel ine as alevel of serum 25-OH vitamin D less than 20 ng/mL (1,2).The Endocrine Society went on to further define vitamin Dinsufficiency as a level between 21 and 29 ng/mL (2).1. IOM (Ins titute of Medicine). 2010 . Dietary reference intak es for calcium and D. [facility]: [employer] .2. Ela Oliveros, Stephane EMERSON, et al. Evaluation, treatment, and prevention of vitamin D de ficiency: an Endocrine So [facility] clinical practi ce guideline. JCEM . 2010; 96(7):1911-30.& lt;br/>
Performed by:
[facility] ([place])

[facility] Description: 25-hydroxyvitamin D3 [Mass/volume] in Serum or [id number] 04:26:00 Test Item Value Reference Range Interpretation Comments Vitamin D, 12.0 ng/mL 30.0-100.0 L Vitamin D defic iency has 25-Hydroxy (test been define d by the code = 23134-8) [employer] [employer] and an Endocrine So ciety practice guidel ine as alevel of serum 25-OH vitamin D less than 20 ng/mL (1,2).The Endocrine Society went on to further define vitamin Dinsufficiency as a level between 21 and 29 ng/mL (2).1. IOM (Ins titute of Medicine). 2010 . Dietary reference intak es for calcium and D. [facility]: [employer] .2. Ela Oliveros, Stephane EMERSON, et al. Evaluation, treatment, and prevention of vitamin D de ficiency: an Endocrine [facility] clinical practi ce guideline. JCEM . 2010; 96(7):1911-30.& lt;br/>
Performed by:
[employer] ([place])

[facility] Description: 25-hydroxyvitamin D3 [Mass/volume] in Serum or [id number] 04:26:00 Test Item Value Reference Range Interpretation Comments Vitamin D, 12.0 ng/mL 30.0-100.0 L Vitamin D defic iency has 25-Hydroxy (test been define d by the code = 89099-8) [employer] [employer] and an Endocrine [facility] practice guidel ine as alevel of serum 25-OH vitamin D less than 20 ng/mL (1,2).The Endocrine Society went on to further define vitamin Dinsufficiency as a level between 21 and 29 ng/mL (2).1. IOM (Ins titute of Medicine). 2010 . Dietary reference intak es for calcium and D. [facility]: [employer] .2. Ela Oliveros, Stephane EMERSON, et al. Evaluation, treatment, and prevention of vitamin D de ficiency: an Endocrine [facility] clinical practi ce guideline. JCEM . 2010; 96(7):1911-30.& lt;br/>
Performed by:
[employer] ([place])

[facility] Description: 25-hydroxyvitamin D3 [Mass/volume] in Serum or [id number] 04:26:00 Test Item Value Reference Range Interpretation Comments Vitamin D, 12.0 ng/mL 30.0-100.0 L Vitamin D defic iency has 25-Hydroxy (test been define d by the code = 46681-0) [employer] and an Endocrine So ciety practice guidel ine as alevel of serum 25-OH vitamin D less than 20 ng/mL (1,2).The Endocrine Society went on to further define vitamin Dinsufficiency as a level between 21 and 29 ng/mL (2).1. IOM (Ins titute of Medicine). 2010 . Dietary reference intak es for calcium and D. [facility]: [employer] .2. Ela Oliveros, Stephane EMERSON, et al. Evaluation, treatment, and prevention of vitamin D de ficiency: an Endocrine [facility] clinical practi ce guideline. JCEM . 2010; 96(7):1911-30.& lt;br/>
Performed by:
[employer] (HD)

[facility] Description: 25-hydroxyvitamin D3 [Mass/volume] in Serum or [id number] 04:26:00 Test Item Value Reference Range Interpretation Comments Vitamin D, 12.0 ng/mL 30.0-100.0 L Vitamin D defic iency has 25-Hydroxy (test been define d by the code = 82123-3) [employer] and an Endocrine So [facility] practice guidel ine as alevel of serum 25-OH vitamin D less than 20 ng/mL (1,2).The Endocrine Society went on to further define vitamin Dinsufficiency as a level between 21 and 29 ng/mL (2).1. IOM (Ins titute of Medicine). 2010 . Dietary reference intak es for calcium and D. [facility]: [employer] .2. Ela Oliveros, Stephane EMERSON, et al. Evaluation, treatment, and prevention of vitamin D de ficiency: an Endocrine [facility] clinical practi ce guideline. JCEM . 2010; 96(7):1911-30.& lt;br/>
Performed by:
[employer] (HD)

[facility] Description: 25-hydroxyvitamin D3 [Mass/volume] in Serum or [id number] 04:26:00 Test Item Value Reference Range Interpretation Comments Vitamin D, 12.0 ng/mL 30.0-100.0 L Vitamin D defic iency has 25-Hydroxy (test been define d by the code = 75772-0) [employer] and an Endocrine [facility] practice guidel ine as alevel of serum 25-OH vitamin D less than 20 ng/mL (1,2).The Endocrine Society went on to further define vitamin Dinsufficiency as a level between 21 and 29 ng/mL (2).1. IOM (Ins titute of Medicine). 2010 . Dietary reference intak es for calcium and D. [place]: [employer] .2. Ela Oliveros, Stephane EMERSON, et al. Evaluation, treatment, and prevention of vitamin D de ficiency: an Endocrine [facility] clinical practi ce guideline. JCEM . 2010; 96(7):1911-30.& lt;br/>
Performed by:
[facility] ()

[facility] Description: 25-hydroxyvitamin D3 [Mass/volume] in Serum or [id number] 04:26:00 Test Item Value Reference Range Interpretation Comments Vitamin D, 12.0 ng/mL 30.0-100.0 L Vitamin D defic iency has 25-Hydroxy (test been define d by the code = 70099-5) [employer] and an Endocrine [facility] practice guidel ine as alevel of serum 25-OH vitamin D less than 20 ng/mL (1,2).The Endocrine Society went on to further define vitamin Dinsufficiency as a level between 21 and 29 ng/mL (2).1. IOM (Ins titute of Medicine). 2010 . Dietary reference intak es for calcium and D. [facility]: [employer] .2. Ela Oliveros, Stephane EMERSON, et al. Evaluation, treatment, and prevention of vitamin D de ficiency: an Endocrine [facility] clinical practi ce guideline. JCEM . 2010; 96(7):1911-30.& lt;br/>
Performed by:
[facility] (HD)

[facility] Description: 25-hydroxyvitamin D3 [Mass/volume] in Serum or [id number] 04:26:00 Test Item Value Reference Range Interpretation Comments Vitamin D, 12.0 ng/mL 30.0-100.0 L Vitamin D defic iency has 25-Hydroxy (test been define d by the code = 66303-8) [employer] and an Endocrine [facility] practice guidel ine as alevel of serum 25-OH vitamin D less than 20 ng/mL (1,2).The Endocrine Society went on to further define vitamin Dinsufficiency as a level between 21 and 29 ng/mL (2).1. IOM (Ins titute of Medicine). 2010 . Dietary reference intak es for calcium and D. [place]: [employer] .2. Ela Oliveros, Stephane EMERSON, et al. Evaluation, treatment, and prevention of vitamin D de ficiency: an Endocrine [facility] clinical practi ce guideline. JCEM . 2010; 96(7):1911-30.& lt;br/>
Performed by:
[facility] (HD)

[facility] Description: 25-hydroxyvitamin D3 [Mass/volume] in Serum or [id number] 04:26:00 Test Item Value Reference Range Interpretation Comments Vitamin D, 12.0 ng/mL 30.0-100.0 L Vitamin D defic iency has 25-Hydroxy (test been define d by the code = 92573-8) [employer] and an Endocrine [facility] practice guidel ine as alevel of serum 25-OH vitamin D less than 20 ng/mL (1,2).The Endocrine Society went on to further define vitamin Dinsufficiency as a level between 21 and 29 ng/mL (2).1. IOM (Ins titute of Medicine). 2010 . Dietary reference intak es for calcium and D. [place]: [employer] .2. Ela Oliveros, Stephane EMERSON, et al. Evaluation, treatment, and prevention of vitamin D de ficiency: an Endocrine [facility] clinical practi ce guideline. EM . 2010; 96(7):1911-.& lt;br/>
Performed by:
[facility] (HD)

[facility] Description: 25-hydroxyvitamin D3 [Mass/volume] in Serum or [id number] 04:26:00 Test Item Value Reference Range Interpretation Comments Vitamin D, 12.0 ng/mL 30.0-100.0 L Vitamin D defic iency has 25-Hydroxy (test been define d by the code = 86970-3) [employer] and an Endocrine [facility] practice guidel ine as alevel of serum 25-OH vitamin D less than 20 ng/mL (1,2).The Endocrine Society went on to further define vitamin Dinsufficiency as a level between 21 and 29 ng/mL (2).1. IOM (Ins titute of Medicine). 2010 . Dietary reference intak es for calcium and D. [place]: [employer] .2. Dileep AREVALO, Ela SANTA, Stephane EMERSON, et al. Evaluation, treatment, and prevention of vitamin D de ficiency: an Endocrine [facility] clinical practi ce guideline. EM . 2010; 96(7):1911-30.& lt;br/>
Performed by:
[facility] ([place])

[facility] Description: 25-hydroxyvitamin D3 [Mass/volume] in Serum or [id number] 04:26:00 Test Item Value Reference Range Interpretation Comments Vitamin D, 12.0 ng/mL 30.0-100.0 L Vitamin D defic iency has 25-Hydroxy (test been define d by the code = 65273-7) [employer] and an Endocrine [facility] practice guidel ine as alevel of serum 25-OH vitamin D less than 20 ng/mL (1,2).The Endocrine Society went on to further define vitamin Dinsufficiency as a level between 21 and 29 ng/mL (2).1. IOM (Ins titute of Medicine). 2010 . Dietary reference intak es for calcium and D. [facility]: [employer] .2. Ela Oliveros, Stephane EMERSON, et al. Evaluation, treatment, and prevention of vitamin D de ficiency: an Endocrine [facility] clinical practi ce guideline. EM . 2010; 96(7):1911-30.& lt;br/>
Performed by:
[facility] (HD)

[facility] Description: 25-hydroxyvitamin D3 [Mass/volume] in Serum or [id number] 04:26:00 Test Item Value Reference Range Interpretation Comments Vitamin D, 12.0 ng/mL 30.0-100.0 L Vitamin D defic iency has 25-Hydroxy (test been define d by the code = 56380-7) [employer] and an Endocrine [facility] practice guidel ine as alevel of serum 25-OH vitamin D less than 20 ng/mL (1,2).The Endocrine Society went on to further define vitamin Dinsufficiency as a level between 21 and 29 ng/mL (2).1. IOM (Ins titute of Medicine). 2010 . Dietary reference intak es for calcium and D. [facility]: [employer] .2. Ela Oliveros, Stephane EMERSON, et al. Evaluation, treatment, and prevention of vitamin D de ficiency: an Endocrine [facility] clinical practi ce guideline. EM . 2010; 96(7):1911-30.& lt;br/>
Performed by:
[facility] (HD)

[facility] Description: 25-hydroxyvitamin D3 [Mass/volume] in Serum or [id number] 04:26:00 Test Item Value Reference Range Interpretation Comments Vitamin D, 12.0 ng/mL 30.0-100.0 L Vitamin D defic iency has 25-Hydroxy (test been define d by the code = 84264-6) [employer] and an Endocrine [facility] practice guidel ine as alevel of serum 25-OH vitamin D less than 20 ng/mL (1,2).The Endocrine Society went on to further define vitamin Dinsufficiency as a level between 21 and 29 ng/mL (2).1. IOM (Ins titute of Medicine). 2010 . Dietary reference intak es for calcium and D. [facility]: [employer] .2. Ela Oliveros, Stephane EMERSON, et al. Evaluation, treatment, and prevention of vitamin D de ficiency: an Endocrine [facility] clinical practi ce guideline. JCEM . 2010; 96(7):1911-30.& lt;br/>
Performed by:
[employer] (HD)

[facility] Description: 25-hydroxyvitamin D3 [Mass/volume] in Serum or [id number] 04:26:00 Test Item Value Reference Range Interpretation Comments Vitamin D, 12.0 ng/mL 30.0-100.0 L Vitamin D defic iency has 25-Hydroxy (test been define d by the code = 13918-7) [employer] and an Endocrine [facility] practice guidel ine as alevel of serum 25-OH vitamin D less than 20 ng/mL (1,2).The Endocrine Society went on to further define vitamin Dinsufficiency as a level between 21 and 29 ng/mL (2).1. IOM (Ins titute of Medicine). 2010 . Dietary reference intak es for calcium and D. [facility]: [employer] .2. Ela Oliveros, Stephane EMERSON, et al. Evaluation, treatment, and prevention of vitamin D de ficiency: an Endocrine [facility] clinical practi ce guideline. JCEM . 2010; 96(7):1911-30.& lt;br/>
Performed by:
[facility] (HD)

[facility] Description: 25-hydroxyvitamin D3 [Mass/volume] in Serum or [id number] 04:26:00 Test Item Value Reference Range Interpretation Comments Vitamin D, 12.0 ng/mL 30.0-100.0 L Vitamin D defic iency has 25-Hydroxy (test been define d by the code = 77800-4) [employer] and an Endocrine So ci[facility] practice guidel ine as alevel of serum 25-OH vitamin D less than 20 ng/mL (1,2).The Endocrine Society went on to further define vitamin Dinsufficiency as a level between 21 and 29 ng/mL (2).1. IOM (Ins titute of Medicine). 2010 . Dietary reference intak es for calcium and D. [facility]: [employer] .2. Ela Oliveros, Stephane EMERSON, et al. Evaluation, treatment, and prevention of vitamin D de ficiency: an Endocrine [facility] clinical practi ce guideline. JCEM . 2010; 96(7):191-.& lt;br/>
Performed by:
[employer] (HD)

[facility] Description: 25-hydroxyvitamin D3 [Mass/volume] in Serum or [id number] 04:26:00 Test Item Value Reference Range Interpretation Comments Vitamin D, 12.0 ng/mL 30.0-100.0 L Vitamin D defic iency has 25-Hydroxy (test been define d by the code = 73621-9) [employer] and an Endocrine [facility] practice guidel ine as alevel of serum 25-OH vitamin D less than 20 ng/mL (1,2).The Endocrine Society went on to further define vitamin Dinsufficiency as a level between 21 and 29 ng/mL (2).1. IOM (Ins titute of Medicine). 2010 . Dietary reference intak es for calcium and D. [facility]: [employer] .2. Ela Oliveros, Stephane EMERSON, et al. Evaluation, treatment, and prevention of vitamin D de ficiency: an Endocrine [facility] clinical practi ce guideline. JCEM . 2010; 96(7):191-30.& lt;br/>
Performed by:
[employer] (HD)

[facility] Description: 25-hydroxyvitamin D3 [Mass/volume] in Serum or [id number] 04:26:00 Test Item Value Reference Range Interpretation Comments Vitamin D, 12.0 ng/mL 30.0-100.0 L Vitamin D defic iency has 25-Hydroxy (test been define d by the code = 19623-5) [employer] and an Endocrine So ciety practice guidel ine as alevel of serum 25-OH vitamin D less than 20 ng/mL (1,2).The Endocrine Society went on to further define vitamin Dinsufficiency as a level between 21 and 29 ng/mL (2).1. IOM (Ins titute of Medicine). 2010 . Dietary reference intak es for calcium and D. [facility]: [employer] .2. Ela Oliveros, Stephane EMERSON, et al. Evaluation, treatment, and prevention of vitamin D de ficiency: an Endocrine [facility] clinical practi ce guideline. JCEM . 2010; 96(7):1911-30.& lt;br/>
Performed by:
[facility] ()

[facility] Description: 25-hydroxyvitamin D3 [Mass/volume] in Serum or [id number] 04:26:00 Test Item Value Reference Range Interpretation Comments Vitamin D, 12.0 ng/mL 30.0-100.0 L Vitamin D defic iency has 25-Hydroxy (test been define d by the code = 69763-2) [employer] and an Endocrine [facility] practice guidel ine as alevel of serum 25-OH vitamin D less than 20 ng/mL (1,2).The Endocrine Society went on to further define vitamin Dinsufficiency as a level between 21 and 29 ng/mL (2).1. IOM (Ins titute of Medicine). 2010 . Dietary reference intak es for calcium and D. [facility]: [employer] .2. Ela Oliveros, Stephane EMERSON, et al. Evaluation, treatment, and prevention of vitamin D de ficiency: an Endocrine [facility] clinical practi ce guideline. JCEM . 2010; 96(7):1911-30.& lt;br/>
Performed by:
[facility] (HD)

[facility] Description: 25-hydroxyvitamin D3 [Mass/volume] in Serum or [id number] 04:26:00 Test Item Value Reference Range Interpretation Comments Vitamin D, 12.0 ng/mL 30.0-100.0 L Vitamin D defic iency has 25-Hydroxy (test been define d by the code = 32987-0) [employer] and an Endocrine [facility] practice guidel ine as alevel of serum 25-OH vitamin D less than 20 ng/mL (1,2).The Endocrine Society went on to further define vitamin Dinsufficiency as a level between 21 and 29 ng/mL (2).1. IOM (Ins titute of Medicine). 2010 . Dietary reference intak es for calcium and D. [place]: [employer] .2. Ela Oliveros, Stephane EMERSON, et al. Evaluation, treatment, and prevention of vitamin D de ficiency: an Endocrine [facility] clinical practi ce guideline. JCEM . 2010; 96(7):1911-30.& lt;br/>
Performed by:
[facility] (HD)

[facility] Description: 25-hydroxyvitamin D3 [Mass/volume] in Serum or [id number] 04:26:00 Test Item Value Reference Range Interpretation Comments Vitamin D, 12.0 ng/mL 30.0-100.0 L Vitamin D defic iency has 25-Hydroxy (test been define d by the code = 99985-3) [employer] and an Endocrine [facility] practice guidel ine as alevel of serum 25-OH vitamin D less than 20 ng/mL (1,2).The Endocrine Society went on to further define vitamin Dinsufficiency as a level between 21 and 29 ng/mL (2).1. IOM (Ins titute of Medicine). 2010 . Dietary reference intak es for calcium and D. [place]: [employer] .2. Ela Oliveros, Stephane EMERSON, et al. Evaluation, treatment, and prevention of vitamin D de ficiency: an Endocrine [facility] clinical practi ce guideline. JCEM . 2010; 96(9):8960-30.& lt;br/>
Performed by:
[facility] ([place])

[facility] Description: CBC With Differential/[id number] 04:00:00 Test Item Value Reference Range Interpretation [...] (test 1 % Not Estab. code = 68737-8) Immature Grans (Abs) (test code 0.0 x10E3/uL 0.0-0.1 = 37737-4) NRBC (test code = 36501-3) Hematology Comments: (test code = 59823-6) [facility] Description: CBC With Differential/[id number] 04:00:00 Test Item Value Reference Range Interpretation [...] (test 1 % Not Estab. code = 87725-5) Immature Grans (Abs) (test code 0.0 x10E3/uL 0.0-0.1 = 97136-0) NRBC (test code = 64377-0) Hematology Comments: (test code = 78203-9) [facility] Description: CBC With Differential/Zlduxlrh0146-07-05 04:00:00 Test Item Value Reference Range Interpretation [...] (test 1 % Not Estab. code = 89132-4) Immature Grans (Abs) (test code 0.0 x10E3/uL 0.0-0.1 = 56828-9) NRBC (test code = 59372-3) Hematology Comments: (test code = 29298-2) [facility] Description: CBC With Differential/[id number] 04:00:00 Test Item Value Reference Range Interpretation [...] (test 1 % Not Estab. code = 56253-7) Immature Grans (Abs) (test code 0.0 x10E3/uL 0.0-0.1 = 96692-9) NRBC (test code = 56328-5) Hematology Comments: (test code = 92786-5) [facility] Description: CBC With Differential/[id number] 04:00:00 Test Item Value Reference Range Interpretation [...] (test 1 % Not Estab. code = 54286-9) Immature Grans (Abs) (test code 0.0 x10E3/uL 0.0-0.1 = 38499-6) NRBC (test code = 80132-3) Hematology Comments: (test code = 98898-7) [facility] Description: CBC With Differential/[id number] 04:00:00 Test Item Value Reference Range Interpretation [...] (test 1 % Not Estab. code = 88726-6) Immature Grans (Abs) (test code 0.0 x10E3/uL 0.0-0.1 = 70547-2) NRBC (test code = 21663-3) Hematology Comments: (test code = 11920-5) [facility] Description: CBC With Differential/Zcihajfr3862-04-15 04:00:00 Test Item Value Reference Range Interpretation [...] (test 1 % Not Estab. code = 46050-1) Immature Grans (Abs) (test code 0.0 x10E3/uL 0.0-0.1 = 22268-3) NRBC (test code = 21105-9) Hematology Comments: (test code = 76297-3) [facility] Description: CBC With Differential/[id number] 04:00:00 Test Item Value Reference Range Interpretation [...] (test 1 % Not Estab. code = 91915-0) Immature Grans (Abs) (test code 0.0 x10E3/uL 0.0-0.1 = 08868-6) NRBC (test code = 33865-9) Hematology Comments: (test code = 34708-7) [facility] Description: CBC With Differential/Jkqrfnjh4382-11-84 04:00:00 Test Item Value Reference Range Interpretation [...] (test 1 % Not Estab. code = 23566-3) Immature Grans (Abs) (test code 0.0 x10E3/uL 0.0-0.1 = 38622-9) NRBC (test code = 55932-6) Hematology Comments: (test code = 91200-2) [facility] Description: CBC With Differential/Mihklomp5601-13-72 04:00:00 Test Item Value Reference Range Interpretation [...] (test 1 % Not Estab. code = 62403-4) Immature Grans (Abs) (test code 0.0 x10E3/uL 0.0-0.1 = 37601-8) NRBC (test code = 89504-9) Hematology Comments: (test code = 06109-6) [facility] Description: CBC With Differential/Bhjhdujk8823-31-18 04:00:00 Test Item Value Reference Range Interpretation [...] (test 1 % Not Estab. code = 15982-2) Immature Grans (Abs) (test code 0.0 x10E3/uL 0.0-0.1 = 68980-3) NRBC (test code = 29005-1) Hematology Comments: (test code = 59984-6) [facility] Description: CBC With Differential/Vjyuvwmu1516-27-27 04:00:00 Test Item Value Reference Range Interpretation [...] (test 1 % Not Estab. code = 56315-3) Immature Grans (Abs) (test code 0.0 x10E3/uL 0.0-0.1 = 13778-6) NRBC (test code = 93023-7) Hematology Comments: (test code = 04950-7) [facility] Description: CBC With Differential/Cekhfmsn1014-23-34 04:00:00 Test Item Value Reference Range Interpretation [...] (test 1 % Not Estab. code = 20289-4) Immature Grans (Abs) (test code 0.0 x10E3/uL 0.0-0.1 = 47770-5) NRBC (test code = 44692-7) Hematology Comments: (test code = 75018-8) [facility] Description: CBC With Differential/Vynlvatf6974-77-52 04:00:00 Test Item Value Reference Range Interpretation [...] (test 1 % Not Estab. code = 94619-9) Immature Grans (Abs) (test code 0.0 x10E3/uL 0.0-0.1 = 73854-0) NRBC (test code = 55708-8) Hematology Comments: (test code = 86639-4) [facility] Description: CBC With Differential/Djpfzxjt3724-80-51 04:00:00 Test Item Value Reference Range Interpretation [...] (test 1 % Not Estab. code = 37780-3) Immature Grans (Abs) (test code 0.0 x10E3/uL 0.0-0.1 = 42046-6) NRBC (test code = 46844-9) Hematology Comments: (test code = 14413-5) [facility] Description: CBC With Differential/Bdwbivqi6847-96-01 04:00:00 Test Item Value Reference Range Interpretation [...] (test 1 % Not Estab. code = 86747-3) Immature Grans (Abs) (test code 0.0 x10E3/uL 0.0-0.1 = 79512-1) NRBC (test code = 95382-4) Hematology Comments: (test code = 81433-5) [facility] Description: CBC With Differential/Fvgxphcm6808-72-05 04:00:00 Test Item Value Reference Range Interpretation [...] (test 1 % Not Estab. code = 33064-2) Immature Grans (Abs) (test code 0.0 x10E3/uL 0.0-0.1 = 69187-0) NRBC (test code = 73230-8) Hematology Comments: (test code = 64385-6) [facility] Description: CBC With Differential/Uzvajirw3892-20-39 04:00:00 Test Item Value Reference Range Interpretation [...] (test 1 % Not Estab. code = 12322-2) Immature Grans (Abs) (test code 0.0 x10E3/uL 0.0-0.1 = 33868-5) NRBC (test code = 06701-8) Hematology Comments: (test code = 46957-7) [facility] Description: CBC With Differential/Pfaiwrmi9052-71-57 04:00:00 Test Item Value Reference Range Interpretation [...] (test 1 % Not Estab. code = 71934-1) Immature Grans (Abs) (test code 0.0 x10E3/uL 0.0-0.1 = 25523-0) NRBC (test code = 74993-9) Hematology Comments: (test code = 27380-7) [facility] Description: CBC With Differential/Rgnvmwbu2226-52-84 04:00:00 Test Item Value Reference Range Interpretation [...] (test 1 % Not Estab. code = 11969-3) Immature Grans (Abs) (test code 0.0 x10E3/uL 0.0-0.1 = 69299-3) NRBC (test code = 74002-6) Hematology Comments: (test code = 48403-2) [facility] Description: CBC With Differential/Jfmykmka6769-12-11 04:00:00 Test Item Value Reference Range Interpretation [...] (test 1 % Not Estab. code = 39207-0) Immature Grans (Abs) (test code 0.0 x10E3/uL 0.0-0.1 = 76706-9) NRBC (test code = 43536-9) Hematology Comments: (test code = 40994-4) [facility] Description: CBC With Differential/Hjawgago1427-15-50 04:00:00 Test Item Value Reference Range Interpretation [...] (test 1 % Not Estab. code = 61821-5) Immature Grans (Abs) (test code 0.0 x10E3/uL 0.0-0.1 = 00705-1) NRBC (test code = 64404-8) Hematology Comments: (test code = 09415-2) [facility] Description: Magnesium [Mass/volume] in Serum or Plasma 2020-10-30 02:31:00 Test Item Value Reference Range Interpretation Comments Magnesium (test code = 45631-1) 1.6 mg/dL 1.6-2.3 [facility] Description: Magnesium [Mass/volume] in Serum or Plasma 2020-10-30 02:31:00 Test Item Value Reference Range Interpretation Comments Magnesium (test code = 69262-1) 1.6 mg/dL 1.6-2.3 [facility] Description: Magnesium [Mass/volume] in Serum or Plasma 2020-10-30 02:31:00 Test Item Value Reference Range Interpretation Comments Magnesium (test code = 91974-8) 1.6 mg/dL 1.6-2.3 [facility] Description: Magnesium [Mass/volume] in Serum or Plasma 2020-10-30 02:31:00 Test Item Value Reference Range Interpretation Comments Magnesium (test code = 23521-0) 1.6 mg/dL 1.6-2.3 [facility] Description: Magnesium [Mass/volume] in Serum or Plasma 2020-10-30 02:31:00 Test Item Value Reference Range Interpretation Comments Magnesium (test code = 06553-9) 1.6 mg/dL 1.6-2.3 [facility] Description: Magnesium [Mass/volume] in Serum or Plasma 2020-10-30 02:31:00 Test Item Value Reference Range Interpretation Comments Magnesium (test code = 71847-8) 1.6 mg/dL 1.6-2.3 [facility] Description: Magnesium [Mass/volume] in Serum or Plasma 2020-10-30 02:31:00 Test Item Value Reference Range Interpretation Comments Magnesium (test code = 29254-0) 1.6 mg/dL 1.6-2.3 [facility] Description: Magnesium [Mass/volume] in Serum or Plasma 2020-10-30 02:31:00 Test Item Value Reference Range Interpretation Comments Magnesium (test code = 10744-0) 1.6 mg/dL 1.6-2.3 [facility] Description: Magnesium [Mass/volume] in Serum or Plasma 2020-10-30 02:31:00 Test Item Value Reference Range Interpretation Comments Magnesium (test code = 28247-3) 1.6 mg/dL 1.6-2.3 [facility] Description: Magnesium [Mass/volume] in Serum or Plasma 2020-10-30 02:31:00 Test Item Value Reference Range Interpretation Comments Magnesium (test code = 30029-9) 1.6 mg/dL 1.6-2.3 [facility] Description: Magnesium [Mass/volume] in Serum or Plasma 2020-10-30 02:31:00 Test Item Value Reference Range Interpretation Comments Magnesium (test code = 80451-5) 1.6 mg/dL 1.6-2.3 [facility] Description: Magnesium [Mass/volume] in Serum or Plasma 2020-10-30 02:31:00 Test Item Value Reference Range Interpretation Comments Magnesium (test code = 83554-9) 1.6 mg/dL 1.6-2.3 [facility] Description: Magnesium [Mass/volume] in Serum or Plasma 2020-10-30 02:31:00 Test Item Value Reference Range Interpretation Comments Magnesium (test code = 02187-1) 1.6 mg/dL 1.6-2.3 [facility] Description: Magnesium [Mass/volume] in Serum or Plasma 2020-10-30 02:31:00 Test Item Value Reference Range Interpretation Comments Magnesium (test code = 41636-8) 1.6 mg/dL 1.6-2.3 [facility] Description: Magnesium [Mass/volume] in Serum or Plasma 2020-10-30 02:31:00 Test Item Value Reference Range Interpretation Comments Magnesium (test code = 81137-5) 1.6 mg/dL 1.6-2.3 [facility] Description: Magnesium [Mass/volume] in Serum or Plasma 2020-10-30 02:31:00 Test Item Value Reference Range Interpretation Comments Magnesium (test code = 66255-3) 1.6 mg/dL 1.6-2.3 [facility] Description: Magnesium [Mass/volume] in Serum or Plasma 2020-10-30 02:31:00 Test Item Value Reference Range Interpretation Comments Magnesium (test code = 65028-2) 1.6 mg/dL 1.6-2.3 [facility] Description: Magnesium [Mass/volume] in Serum or Plasma 2020-10-30 02:31:00 Test Item Value Reference Range Interpretation Comments Magnesium (test code = 84408-6) 1.6 mg/dL 1.6-2.3 [facility] Description: Magnesium [Mass/volume] in Serum or Plasma 2020-10-30 02:31:00 Test Item Value Reference Range Interpretation Comments Magnesium (test code = 59517-8) 1.6 mg/dL 1.6-2.3 [facility] Description: Magnesium [Mass/volume] in Serum or Plasma 2020-10-30 02:31:00 Test Item Value Reference Range Interpretation Comments Magnesium (test code = 51052-7) 1.6 mg/dL 1.6-2.3 [facility] Description: Magnesium [Mass/volume] in Serum or Plasma 2020-10-30 02:31:00 Test Item Value Reference Range Interpretation Comments Magnesium (test code = 83224-6) 1.6 mg/dL 1.6-2.3 [facility]: Magnesium [Mass/volume] in Serum or Plasma 2020-10-30 02:31:00 Test Item Value Reference Range Interpretation Comments Magnesium (test code = 63589-3) 1.6 mg/dL 1.6-2.3 [facility]: Lipid [id number] 02:17:00 Test Item Value Reference Range Interpretation Comments Cholesterol, Total (test code = 167 mg/dL 028-329 4015-3) Triglycerides (test code = 2571-8) 60 mg/dL 0-149 HDL Cholesterol (test code = 33 mg/dL >39 L 5-9) VLDL Cholesterol Renuka (test code = 12 mg/dL 5-40 72647-6) LDL Chol Calc (NIH) (test code = 122 mg/dL 0-99 H 95331-3) Comment: (test code = 09203-2) [employer] Description: Lipid [id number] 02:17:00 Test Item Value Reference Range Interpretation Comments Cholesterol, Total (test code = 167 mg/dL 628-843 0582-3) Triglycerides (test code = 2571-8) 60 mg/dL 0-149 HDL Cholesterol (test code = 33 mg/dL >39 L 5-9) VLDL Cholesterol Renuka (test code = 12 mg/dL 5-40 08041-0) LDL Chol Calc (NIH) (test code = 122 mg/dL 0-99 H 56059-9) Comment: (test code = 15038-5) [employer] Description: Lipid [id number] 02:17:00 Test Item Value Reference Range Interpretation Comments Cholesterol, Total (test code = 167 mg/dL 319-272 3444-3) Triglycerides (test code = 2571-8) 60 mg/dL 0-149 HDL Cholesterol (test code = 33 mg/dL >39 L 5-9) VLDL Cholesterol Renuka (test code = 12 mg/dL 5-40 15379-1) LDL Chol Calc (NIH) (test code = 122 mg/dL 0-99 H 67739-2) Comment: (test code = 23186-9) [employer] Description: Lipid [id number] 02:17:00 Test Item Value Reference Range Interpretation Comments Cholesterol, Total (test code = 167 mg/dL 101-177 0580-3) Triglycerides (test code = 2571-8) 60 mg/dL 0-149 HDL Cholesterol (test code = 33 mg/dL >39 L 2085-9) VLDL Cholesterol Renuka (test code = 12 mg/dL 5-40 74581-4) LDL Chol Calc (NIH) (test code = 122 mg/dL 0-99 H 64374-2) Comment: (test code = 30077-6) [employer] Description: Lipid [id number] 02:17:00 Test Item Value Reference Range Interpretation Comments Cholesterol, Total (test code = 167 mg/dL 790-889 5379-3) Triglycerides (test code = 2571-8) 60 mg/dL 0-149 HDL Cholesterol (test code = 33 mg/dL >39 L 2085-9) VLDL Cholesterol Renuka (test code = 12 mg/dL 5-40 25486-5) LDL Chol Calc (NIH) (test code = 122 mg/dL 0-99 H 19277-2) Comment: (test code = 51295-7) [employer] Description: Lipid [id number] 02:17:00 Test Item Value Reference Range Interpretation Comments Cholesterol, Total (test code = 167 mg/dL 832-653 8296-3) Triglycerides (test code = 2571-8) 60 mg/dL 0-149 HDL Cholesterol (test code = 33 mg/dL >39 L 2085-9) VLDL Cholesterol Renuka (test code = 12 mg/dL 5-40 63820-8) LDL Chol Calc (NIH) (test code = 122 mg/dL 0-99 H 08333-7) Comment: (test code = 30518-4) [employer] Description: Lipid [id number] 02:17:00 Test Item Value Reference Range Interpretation Comments Cholesterol, Total (test code = 167 mg/dL 601-518 2809-3) Triglycerides (test code = 2571-8) 60 mg/dL 0-149 HDL Cholesterol (test code = 33 mg/dL >39 L 2085-9) VLDL Cholesterol Renuka (test code = 12 mg/dL 5-40 47341-5) LDL Chol Calc (NIH) (test code = 122 mg/dL 0-99 H 74733-4) Comment: (test code = 73327-2) [employer] Description: Lipid [id number] 02:17:00 Test Item Value Reference Range Interpretation Comments Cholesterol, Total (test code = 167 mg/dL 385-655 5312-3) Triglycerides (test code = 2571-8) 60 mg/dL 0-149 HDL Cholesterol (test code = 33 mg/dL >39 L 2085-9) VLDL Cholesterol Renuka (test code = 12 mg/dL 5-40 71062-4) LDL Chol Calc (NIH) (test code = 122 mg/dL 0-99 H 42237-9) Comment: (test code = 56484-8) [employer] Description: Lipid [id number] 02:17:00 Test Item Value Reference Range Interpretation Comments Cholesterol, Total (test code = 167 mg/dL 666-906 2758-3) Triglycerides (test code = 2571-8) 60 mg/dL 0-149 HDL Cholesterol (test code = 33 mg/dL >39 L 2085-9) VLDL Cholesterol Renuka (test code = 12 mg/dL 5-40 56326-3) LDL Chol Calc (NIH) (test code = 122 mg/dL 0-99 H 07735-5) Comment: (test code = 79656-8) [facility] [employer] Description: Lipid [id number] 02:17:00 Test Item Value Reference Range Interpretation Comments Cholesterol, Total (test code = 167 mg/dL 575-311 6397-3) Triglycerides (test code = 2571-8) 60 mg/dL 0-149 HDL Cholesterol (test code = 33 mg/dL >39 L 2085-9) VLDL Cholesterol Renuka (test code = 12 mg/dL 5-40 86291-9) LDL Chol Calc (NIH) (test code = 122 mg/dL 0-99 H 86568-1) Comment: (test code = 37827-9) [facility] [employer] Description: Lipid [id number] 02:17:00 Test Item Value Reference Range Interpretation Comments Cholesterol, Total (test code = 167 mg/dL 323-803 8136-3) Triglycerides (test code = 2571-8) 60 mg/dL 0-149 HDL Cholesterol (test code = 33 mg/dL >39 L 2085-9) VLDL Cholesterol Renuka (test code = 12 mg/dL 5-40 58214-5) LDL Chol Calc (NIH) (test code = 122 mg/dL 0-99 H 45852-7) Comment: (test code = 78493-4) [employer] Description: Lipid [id number] 02:17:00 Test Item Value Reference Range Interpretation Comments Cholesterol, Total (test code = 167 mg/dL 100-227 2688-3) Triglycerides (test code = 2571-8) 60 mg/dL 0-149 HDL Cholesterol (test code = 33 mg/dL >39 L 2085-9) VLDL Cholesterol Renuka (test code = 12 mg/dL 5-40 39607-9) LDL Chol Calc (NIH) (test code = 122 mg/dL 0-99 H 52187-3) Comment: (test code = 41180-5) [facility] [employer] Description: Lipid [id number] 02:17:00 Test Item Value Reference Range Interpretation Comments Cholesterol, Total (test code = 167 mg/dL 826-838 7671-3) Triglycerides (test code = 2571-8) 60 mg/dL 0-149 HDL Cholesterol (test code = 33 mg/dL >39 L 2085-9) VLDL Cholesterol Renuka (test code = 12 mg/dL 5-40 76880-7) LDL Chol Calc (NIH) (test code = 122 mg/dL 0-99 H 27892-5) Comment: (test code = 49896-7) [facility] [employer] Description: Lipid [id number] 02:17:00 Test Item Value Reference Range Interpretation Comments Cholesterol, Total (test code = 167 mg/dL 459-532 0464-3) Triglycerides (test code = 2571-8) 60 mg/dL 0-149 HDL Cholesterol (test code = 33 mg/dL >39 L 2085-9) VLDL Cholesterol Renuka (test code = 12 mg/dL 5-40 32120-0) LDL Chol Calc (NIH) (test code = 122 mg/dL 0-99 H 96062-2) Comment: (test code = 26162-5) [employer] Description: Lipid [id number] 02:17:00 Test Item Value Reference Range Interpretation Comments Cholesterol, Total (test code = 167 mg/dL 146-974 7605-3) Triglycerides (test code = 2571-8) 60 mg/dL 0-149 HDL Cholesterol (test code = 33 mg/dL >39 L 5-9) VLDL Cholesterol Renuka (test code = 12 mg/dL 5-40 21184-6) LDL Chol Calc (NIH) (test code = 122 mg/dL 0-99 H 23629-0) Comment: (test code = 00322-9) [employer] Description: Lipid [id number] 02:17:00 Test Item Value Reference Range Interpretation Comments Cholesterol, Total (test code = 167 mg/dL 928-793 0239-3) Triglycerides (test code = 2571-8) 60 mg/dL 0-149 HDL Cholesterol (test code = 33 mg/dL >39 L 5-9) VLDL Cholesterol Renuka (test code = 12 mg/dL 5-40 15039-1) LDL Chol Calc (NIH) (test code = 122 mg/dL 0-99 H 27483-7) Comment: (test code = 65299-7) [employer] Description: Lipid [id number] 02:17:00 Test Item Value Reference Range Interpretation Comments Cholesterol, Total (test code = 167 mg/dL 209-485 9206-3) Triglycerides (test code = 2571-8) 60 mg/dL 0-149 HDL Cholesterol (test code = 33 mg/dL >39 L 5-9) VLDL Cholesterol Renuka (test code = 12 mg/dL 5-40 90034-2) LDL Chol Calc (NIH) (test code = 122 mg/dL 0-99 H 82522-2) Comment: (test code = 82762-6) [facility] [employer] Description: Lipid [id number] 02:17:00 Test Item Value Reference Range Interpretation Comments Cholesterol, Total (test code = 167 mg/dL 399-256 1409-3) Triglycerides (test code = 2571-8) 60 mg/dL 0-149 HDL Cholesterol (test code = 33 mg/dL >39 L 5-9) VLDL Cholesterol Renuka (test code = 12 mg/dL 5-40 04774-0) LDL Chol Calc (NIH) (test code = 122 mg/dL 0-99 H 25031-5) Comment: (test code = 48219-4) [employer] Description: Lipid [id number] 02:17:00 Test Item Value Reference Range Interpretation Comments Cholesterol, Total (test code = 167 mg/dL 976-565 4964-3) Triglycerides (test code = 2571-8) 60 mg/dL 0-149 HDL Cholesterol (test code = 33 mg/dL >39 L 2085-9) VLDL Cholesterol Renuka (test code = 12 mg/dL 5-40 92099-1) LDL Chol Calc (NIH) (test code = 122 mg/dL 0-99 H 63001-3) Comment: (test code = 55958-2) [facility] [employer] Description: Lipid [id number] 02:17:00 Test Item Value Reference Range Interpretation Comments Cholesterol, Total (test code = 167 mg/dL 469-263 9762-3) Triglycerides (test code = 2571-8) 60 mg/dL 0-149 HDL Cholesterol (test code = 33 mg/dL >39 L 2085-9) VLDL Cholesterol Renuka (test code = 12 mg/dL 5-40 53275-5) LDL Chol Calc (NIH) (test code = 122 mg/dL 0-99 H 90243-8) Comment: (test code = 36582-1) [employer] Description: Lipid [id number] 02:17:00 Test Item Value Reference Range Interpretation Comments Cholesterol, Total (test code = 167 mg/dL 740-469 4836-3) Triglycerides (test code = 2571-8) 60 mg/dL 0-149 HDL Cholesterol (test code = 33 mg/dL >39 L 2085-9) VLDL Cholesterol Renuka (test code = 12 mg/dL 5-40 51000-6) LDL Chol Calc (NIH) (test code = 122 mg/dL 0-99 H 58939-5) Comment: (test code = 86028-3) [employer] Description: Lipid [id number] 02:17:00 Test Item Value Reference Range Interpretation Comments Cholesterol, Total (test code = 167 mg/dL 259-198 2980-3) Triglycerides (test code = 2571-8) 60 mg/dL 0-149 HDL Cholesterol (test code = 33 mg/dL >39 L 2085-9) VLDL Cholesterol Renuka (test code = 12 mg/dL 5-40 78317-4) LDL Chol Calc (NIH) (test code = 122 mg/dL 0-99 H 32096-5) Comment: (test code = 17166-7) [facility] Description: Comp. Metabolic Panel (14)2020-10-30 01:58:00 Test Item Value Reference Range Interpretation Comments Glucose (test code 50 mg/dL 65-99 L = 2345-7) BUN (test code = 52 mg/dL 6-24 H 3094-0) Creatinine (test 2.04 mg/dL 0.76-1.27 H code = 2160-0) eGFR If NonAfricn 38 >59 L Am (test code = mL/min/1.73 29066-0) eGFR If Africn Am 44 >59 L [facility] currently (test code = mL/min/1.73 [place] [address]-9) compliance with the current recommendations of the [employer]. [facility] [place] will update rep orting as new guidelin es are published from the NKF-ASN Task force.
<br/ >Perfor med by:
[facility] [place] Kaur (HD)

BUN/Creatinine 25 9-20 H Ratio (test code = 3097-3) Sodium (test code = 142 mmol/L 338-947 5850-2) Potassium (test 4.1 mmol/L 3.5-5.2 code = 2823-3) Chloride (test code 103 mmol/L 96-106 = 2075-0) Carbon Dioxide, 27 mmol/L 20-29 Total (test code = 2027-) Calcium (test code 8.8 mg/dL 8.7-10.2 = 63538-0) Protein, Total 6.8 g/dL 6.0-8.5 (test code = 2885-2) Albumin (test code 3.3 g/dL 4.0-5.0 L = 1751-7) Globulin, Total 3.5 g/dL 1.5-4.5 (test code = 87993-8) A/G Ratio (test 0.9 1.2-2.2 L code = 1759-0) Bilirubin, Total 0.7 mg/dL 0.0-1.2 (test code = 1975-2) Alkaline 140 IU/L 48-121 H Phosphatase (test code = 8116-6) AST (SGOT) (test 14 IU/L 0-40 code [...] >59 L Am (test code = mL/min/1.73 34310-2) eGFR If Africn Am 44 >59 L [facility] currently (test code = mL/min/1.73 [place] 28[address]-0) compliance with the current recommendations of the [employer]. [facility] [place] will update rep orting as new guidelin es are published from the NKF-ASN Task force.
<br/ >Perfor med by:
[facility] [place] Kaur (HD)

BUN/Creatinine 25 9-20 H Ratio (test code = 3097-3) Sodium (test code = 142 mmol/L 238-771 2076-2) Potassium (test 4.1 mmol/L 3.5-5.2 code = 2823-3) Chloride (test code 103 mmol/L 96-106 = 2075-0) Carbon Dioxide, 27 mmol/L 20-29 Total (test code = 2027-) Calcium (test code 8.8 mg/dL 8.7-10.2 = 48796-4) Protein, Total 6.8 g/dL 6.0-8.5 (test code = 2885-2) Albumin (test code 3.3 g/dL 4.0-5.0 L = 1751-7) Globulin, Total 3.5 g/dL 1.5-4.5 (test code = 93607-3) A/G Ratio (test 0.9 1.2-2.2 L code [...] >59 L Am (test code = mL/min/1.73 24033-5) eGFR If Africn Am 44 >59 L [facility] currently (test code = mL/min/1.73 [place] [address]-3) compliance with the current recommendations of the [employer]. [facility] [place] will update rep orting as new guidelin es are published from the NKF-ASN Task force.
<br/ >Perfor med by:
[facility] [place] Kaur (HD)

BUN/Creatinine 25 9-20 H Ratio (test code = 3097-3) Sodium (test code = 142 mmol/L 053-820 2323-2) Potassium (test 4.1 mmol/L 3.5-5.2 code = 2823-3) Chloride (test code 103 mmol/L 96-106 = 5-0) Carbon Dioxide, 27 mmol/L 20-29 Total (test code = 2027-) Calcium (test code 8.8 mg/dL 8.7-10.2 = 46761-5) Protein, Total 6.8 g/dL 6.0-8.5 (test code = 2885-2) Albumin (test code 3.3 g/dL 4.0-5.0 L = 1751-7) Globulin, Total 3.5 g/dL 1.5-4.5 (test code = 74493-0) A/G Ratio (test 0.9 1.2-2.2 L code [...] >59 L Am (test code = mL/min/1.73 36643-4) eGFR If Africn Am 44 >59 L [facility] currently (test code = mL/min/1.73 [place] [address]31-8) compliance with the current recommendations of the [employer]. [facility] [place] will update rep orting as new guidelin es are published from the NKF-ASN Task force.
<br/ >Perfor med by:
[facility] [place] (HD)

BUN/Creatinine 25 9-20 H Ratio (test code = 3097-3) Sodium (test code = 142 mmol/L 741-979 6419-2) Potassium (test 4.1 mmol/L 3.5-5.2 code = 2823-3) Chloride (test code 103 mmol/L 96-106 = 2075-0) Carbon Dioxide, 27 mmol/L 20-29 Total (test code = 2027-9) Calcium (test code 8.8 mg/dL 8.7-10.2 = 26951-1) Protein, Total 6.8 g/dL 6.0-8.5 (test code = 2885-2) Albumin (test code 3.3 g/dL 4.0-5.0 L = 1751-7) Globulin, Total 3.5 g/dL 1.5-4.5 (test code = 14921-3) A/G Ratio (test 0.9 1.2-2.2 L code [...] >59 L Am (test code = mL/min/1.73 46470-7) eGFR If Africn Am 44 >59 L [facility] currently (test code = mL/min/1.73 [place] 66495-9) compliance with the current recommendations of the [employer]. [facility] [place] will update rep orting as new guidelin es are published from the NKF-ASN Task force.
<br/ >Perfor med by:
[facility] [place] (HD)

BUN/Creatinine 25 9-20 H Ratio (test code = 3097-3) Sodium (test code = 142 mmol/L 460-509 7359-2) Potassium (test 4.1 mmol/L 3.5-5.2 code = 2823-3) Chloride (test code 103 mmol/L 96-106 = 2075-0) Carbon Dioxide, 27 mmol/L 20-29 Total (test code = 2027-) Calcium (test code 8.8 mg/dL 8.7-10.2 = 57648-4) Protein, Total 6.8 g/dL 6.0-8.5 (test code = 2885-2) Albumin (test code 3.3 g/dL 4.0-5.0 L = 1751-7) Globulin, Total 3.5 g/dL 1.5-4.5 (test code = 64533-0) A/G Ratio (test 0.9 1.2-2.2 L code [...] >59 L Am (test code = mL/min/1.73 89814-1) eGFR If Africn Am 44 >59 L [facility] currently (test code = mL/min/1.73 [place] 15865-3) compliance with the current recommendations of the [employer]. [facility] [place] will update rep orting as new guidelin es are published from the NKF-ASN Task force.
<br/ >Perfor med by:
[facility] [place] Kaur (HD)

BUN/Creatinine 25 9-20 H Ratio (test code = 3097-3) Sodium (test code = 142 mmol/L 597-837 7166-2) Potassium (test 4.1 mmol/L 3.5-5.2 code = 2823-3) Chloride (test code 103 mmol/L 96-106 = 5-0) Carbon Dioxide, 27 mmol/L 20-29 Total (test code = 2027-) Calcium (test code 8.8 mg/dL 8.7-10.2 = 22490-1) Protein, Total 6.8 g/dL 6.0-8.5 (test code = 2885-2) Albumin (test code 3.3 g/dL 4.0-5.0 L = 1751-7) Globulin, Total 3.5 g/dL 1.5-4.5 (test code = 25787-4) A/G Ratio (test 0.9 1.2-2.2 L code [...] >59 L Am (test code = mL/min/1.73 85579-0) eGFR If Africn Am 44 >59 L [facility] currently (test code = mL/min/1.73 [place] 45344-7) compliance with the current recommendations of the [employer]. [facility] [place] will update rep orting as new guidelin es are published from the NKF-ASN Task force.
<br/ >Perfor med by:
[facility] [place] Kaur (HD)

BUN/Creatinine 25 9-20 H Ratio (test code = 3097-3) Sodium (test code = 142 mmol/L 026-215 6565-2) Potassium (test 4.1 mmol/L 3.5-5.2 code = 2823-3) Chloride (test code 103 mmol/L 96-106 = 2075-0) Carbon Dioxide, 27 mmol/L 20-29 Total (test code = 2027-) Calcium (test code 8.8 mg/dL 8.7-10.2 = 24961-3) Protein, Total 6.8 g/dL 6.0-8.5 (test code = 2885-2) Albumin (test code 3.3 g/dL 4.0-5.0 L = 1751-7) Globulin, Total 3.5 g/dL 1.5-4.5 (test code = 85644-8) A/G Ratio (test 0.9 1.2-2.2 L code [...] >59 L Am (test code = mL/min/1.73 05843-6) eGFR If Africn Am 44 >59 L [facility] currently (test code = mL/min/1.73 [place] 73339-7) compliance with the current recommendations of the [employer] Kid[employer]. [facility] [place] will update rep orting as new guidelin es are published from the NKF-ASN Task force.
<br/ >Perfor med by:
[facility] [place] (HD)

BUN/Creatinine 25 9-20 H Ratio (test code = 3097-3) Sodium (test code = 142 mmol/L 886-864 7625-2) Potassium (test 4.1 mmol/L 3.5-5.2 code = 2823-3) Chloride (test code 103 mmol/L 96-106 = 2075-0) Carbon Dioxide, 27 mmol/L 20-29 Total (test code = 2027-) Calcium (test code 8.8 mg/dL 8.7-10.2 = 25576-7) Protein, Total 6.8 g/dL 6.0-8.5 (test code = 2885-2) Albumin (test code 3.3 g/dL 4.0-5.0 L = 1751-7) Globulin, Total 3.5 g/dL 1.5-4.5 (test code = 42101-5) A/G Ratio (test 0.9 1.2-2.2 L code [...] >59 L Am (test code = mL/min/1.73 69353-2) eGFR If Africn Am 44 >59 L [facility] currently (test code = mL/min/1.73 [place] 37377-2) compliance with the current recommendations of the National Kid[employer]. [facility] [place] will update rep orting as new guidelin es are published from the NKF-ASN Task force.
<br/ >Perfor med by:
[facility] [place] Kaur (HD)

BUN/Creatinine 25 9-20 H Ratio (test code = 3097-3) Sodium (test code = 142 mmol/L 916-921 8466-2) Potassium (test 4.1 mmol/L 3.5-5.2 code = 2823-3) Chloride (test code 103 mmol/L 96-106 = 2075-0) Carbon Dioxide, 27 mmol/L 20-29 Total (test code = 2027-) Calcium (test code 8.8 mg/dL 8.7-10.2 = 97299-8) Protein, Total 6.8 g/dL 6.0-8.5 (test code = 2885-2) Albumin (test code 3.3 g/dL 4.0-5.0 L = 1751-7) Globulin, Total 3.5 g/dL 1.5-4.5 (test code = 07184-0) A/G Ratio (test 0.9 1.2-2.2 L code [...] >59 L Am (test code = mL/min/1.73 95179-5) eGFR If Africn Am 44 >59 L [facility] currently (test code = mL/min/1.73 [place]GFR [place] 16753-7) compliance with the current recommendations of the National Kidney Foundation. [facility] [place] will update rep orting as new guidelin es are published from the NKF-ASN Task force.
<br/ >Perfor med by:
[facility] [place] Kaur (HD)

BUN/Creatinine 25 9-20 H Ratio (test code = 3097-3) Sodium (test code = 142 mmol/L 688-736 8258-2) Potassium (test 4.1 mmol/L 3.5-5.2 code = 2823-3) Chloride (test code 103 mmol/L 96-106 = 2075-0) Carbon Dioxide, 27 mmol/L 20-29 Total (test code = 2027-9) Calcium (test code 8.8 mg/dL 8.7-10.2 = 65160-9) Protein, Total 6.8 g/dL 6.0-8.5 (test code = 2885-2) Albumin (test code 3.3 g/dL 4.0-5.0 L = 1751-7) Globulin, Total 3.5 g/dL 1.5-4.5 (test code = 52534-0) A/G Ratio (test 0.9 1.2-2.2 L code [...] >59 L Am (test code = mL/min/1.73 34823-2) eGFR If Africn Am 44 >59 L [facility] currently (test code = mL/min/1.73 [place] 84557-3) compliance with the current recommendations of the National Kid[employer] Foundation. [facility] [place] will update rep orting as new guidelin es are published from the NKF-ASN Task force.
<br/ >Perfor med by:
[facility] [place] (HD)

BUN/Creatinine 25 9-20 H Ratio (test code = 3097-3) Sodium (test code = 142 mmol/L 335-280 0209-2) Potassium (test 4.1 mmol/L 3.5-5.2 code = 2823-3) Chloride (test code 103 mmol/L 96-106 = 2075-0) Carbon Dioxide, 27 mmol/L 20-29 Total (test code = 2027-) Calcium (test code 8.8 mg/dL 8.7-10.2 = 65528-0) Protein, Total 6.8 g/dL 6.0-8.5 (test code = 2885-2) Albumin (test code 3.3 g/dL 4.0-5.0 L = 1751-7) Globulin, Total 3.5 g/dL 1.5-4.5 (test code = 33688-8) A/G Ratio (test 0.9 1.2-2.2 L code [...] >59 L Am (test code = mL/min/1.73 36837-1) eGFR If Africn Am 44 >59 L [facility] currently (test code = mL/min/1.73 [place] 958[address]-8) compliance with the current recommendations of the National Kid[employer]. [facility] [place] will update rep orting as new guidelin es are published from the NKF-ASN Task force.
<br/ >Perfor med by:
[facility] [place] [facility]aur (HD)

BUN/Creatinine 25 9-20 H Ratio (test code = 3097-3) Sodium (test code = 142 mmol/L 918-669 5723-2) Potassium (test 4.1 mmol/L 3.5-5.2 code = 2823-3) Chloride (test code 103 mmol/L 96-106 = 2075-0) Carbon Dioxide, 27 mmol/L 20-29 Total (test code = 2027-9) Calcium (test code 8.8 mg/dL 8.7-10.2 = 57648-4) Protein, Total 6.8 g/dL 6.0-8.5 (test code = 2885-2) Albumin (test code 3.3 g/dL 4.0-5.0 L = 1751-7) Globulin, Total 3.5 g/dL 1.5-4.5 (test code = 13338-0) A/G Ratio (test 0.9 1.2-2.2 L code [...] >59 L Am (test code = mL/min/1.73 66120-0) eGFR If Africn Am 44 >59 L [facility] currently (test code = mL/min/1[place]73 [place] [address]-6) compliance with the current recommendations of the [employer]. [facility] [place] will update rep orting as new guidelin es are published from the NKF-ASN Task force.
<br/ >Perfor med by:
[facility] (HD)

BUN/Creatinine 25 9-20 H Ratio (test code = 3097-3) Sodium (test code = 142 mmol/L 003-715 3653-2) Potassium (test 4.1 mmol/L 3.5-5.2 code = 2823-3) Chloride (test code 103 mmol/L 96-106 = 2075-0) Carbon Dioxide, 27 mmol/L 20-29 Total (test code = 2027-9) Calcium (test code 8.8 mg/dL 8.7-10.2 = 62153-8) Protein, Total 6.8 g/dL 6.0-8.5 (test code = 2885-2) Albumin (test code 3.3 g/dL 4.0-5.0 L = 1751-7) Globulin, Total 3.5 g/dL 1.5-4.5 (test code = 22975-4) A/G Ratio (test 0.9 1.2-2.2 L code [...] >59 L Am (test code = mL/min/1.73 66597-5) eGFR If Africn Am 44 >59 L [facility] currently (test code = mL/min/1[place] [address]-2) compliance with the current recommendations of the [employer]. [facility] [place] will update rep orting as new guidelin es are published from the NKF-ASN Task force.
<br/ >Perfor med by:
[facility] (HD)

BUN/Creatinine 25 9-20 H Ratio (test code = 3097-3) Sodium (test code = 142 mmol/L 631-088 1077-2) Potassium (test 4.1 mmol/L 3.5-5.2 code = 2823-3) Chloride (test code 103 mmol/L 96-106 = 2075-0) Carbon Dioxide, 27 mmol/L 20-29 Total (test code = 2027-) Calcium (test code 8.8 mg/dL 8.7-10.2 = 93347-8) Protein, Total 6.8 g/dL 6.0-8.5 (test code = 2885-2) Albumin (test code 3.3 g/dL 4.0-5.0 L = 1751-7) Globulin, Total 3.5 g/dL 1.5-4.5 (test code = 67963-5) A/G Ratio (test 0.9 1.2-2.2 L code [...] >59 L Am (test code = mL/min/1.73 56351-5) eGFR If Africn Am 44 >59 L [facility] currently (test code = mL/min/1.73 [place] [address]-1) compliance with the current recommendations of the [employer]. [facility] [place] will update rep orting as new guidelin es are published from the NKF-ASN Task force.
<br/ >Perfor med by:
[facility] [place] [facility] (HD)

BUN/Creatinine 25 9-20 H Ratio (test code = 3097-3) Sodium (test code = 142 mmol/L 923-802 0376-2) Potassium (test 4.1 mmol/L 3.5-5.2 code = 2823-3) Chloride (test code 103 mmol/L 96-106 = 2075-0) Carbon Dioxide, 27 mmol/L 20-29 Total (test code = 2027-9) Calcium (test code 8.8 mg/dL 8.7-10.2 = 68751-9) Protein, Total 6.8 g/dL 6.0-8.5 (test code = 2885-2) Albumin (test code 3.3 g/dL 4.0-5.0 L = 1751-7) Globulin, Total 3.5 g/dL 1.5-4.5 (test code = 67606-8) A/G Ratio (test 0.9 1.2-2.2 L code [...] >59 L Am (test code = mL/min/1.73 65554-3) eGFR If Africn Am 44 >59 L [facility] currently (test code = mL/min/1.73 [place] [address]-0) compliance with the current recommendations of the [employer]. [facility] [place] will update rep orting as new guidelin es are published from the NKF-ASN Task force.
<br/ >Perfor med by:
[facility] [place] [facility] (HD)

BUN/Creatinine 25 9-20 H Ratio (test code = 3097-3) Sodium (test code = 142 mmol/L 544-012 4089-2) Potassium (test 4.1 mmol/L 3.5-5.2 code = 2823-3) Chloride (test code 103 mmol/L 96-106 = 2075-0) Carbon Dioxide, 27 mmol/L 20-29 Total (test code = 2027-9) Calcium (test code 8.8 mg/dL 8.7-10.2 = 79483-8) Protein, Total 6.8 g/dL 6.0-8.5 (test code = 2885-2) Albumin (test code 3.3 g/dL 4.0-5.0 L = 1751-7) Globulin, Total 3.5 g/dL 1.5-4.5 (test code = 88442-5) A/G Ratio (test 0.9 1.2-2.2 L code [...] >59 L Am (test code = mL/min/1.73 82945-2) eGFR If Africn Am 44 >59 L [facility] currently (test code = mL/min/1.73 [place] [address]-4) compliance with the current recommendations of the [employer]. [facility] [place] will update rep orting as new guidelin es are published from the NKF-ASN Task force.
<br/ >Perfor med by:
[facility] [place] [facility] (HD)

BUN/Creatinine 25 9-20 H Ratio (test code = 3097-3) Sodium (test code = 142 mmol/L 739-820 4941-2) Potassium (test 4.1 mmol/L 3.5-5.2 code = 2823-3) Chloride (test code 103 mmol/L 96-106 = 2075-0) Carbon Dioxide, 27 mmol/L 20-29 Total (test code = 2027-9) Calcium (test code 8.8 mg/dL 8.7-10.2 = 80111-1) Protein, Total 6.8 g/dL 6.0-8.5 (test code = 2885-2) Albumin (test code 3.3 g/dL 4.0-5.0 L = 1751-7) Globulin, Total 3.5 g/dL 1.5-4.5 (test code = 26708-0) A/G Ratio (test 0.9 1.2-2.2 L code [...] >59 L Am (test code = mL/min/1.73 09531-0) eGFR If Africn Am 44 >59 L [facility] currently (test code = mL/min/1.73 [place] 0[address]-9) compliance with the current recommendations of the [employer]. [facility] [place] will update rep orting as new guidelin es are published from the NKF-ASN Task force.
<br/ >Perfor med by:
[facility] [place] [facility] (HD)

BUN/Creatinine 25 9-20 H Ratio (test code = 3097-3) Sodium (test code = 142 mmol/L 950-605 1273-2) Potassium (test 4.1 mmol/L 3.5-5.2 code = 2823-3) Chloride (test code 103 mmol/L 96-106 = 2075-0) Carbon Dioxide, 27 mmol/L 20-29 Total (test code = 2027-) Calcium (test code 8.8 mg/dL 8.7-10.2 = 17868-0) Protein, Total 6.8 g/dL 6.0-8.5 (test code = 2885-2) Albumin (test code 3.3 g/dL 4.0-5.0 L = 1751-7) Globulin, Total 3.5 g/dL 1.5-4.5 (test code = 95195-4) A/G Ratio (test 0.9 1.2-2.2 L code [...] >59 L Am (test code = mL/min/1.73 88046-8) eGFR If Africn Am 44 >59 L [facility] currently (test code = mL/min/1.73 [place] [address]-4) compliance with the current recommendations of the [employer]. [facility] [place] will update rep orting as new guidelin es are published from the NKF-ASN Task force.
<br/ >Perfor med by:
[facility] [place] [facility] (HD)

BUN/Creatinine 25 9-20 H Ratio (test code = 3097-3) Sodium (test code = 142 mmol/L 277-283 2365-2) Potassium (test 4.1 mmol/L 3.5-5.2 code = 2823-3) Chloride (test code 103 mmol/L 96-106 = 2075-0) Carbon Dioxide, 27 mmol/L 20-29 Total (test code = 2027-9) Calcium (test code 8.8 mg/dL 8.7-10.2 = 30719-4) Protein, Total 6.8 g/dL 6.0-8.5 (test code = 2885-2) Albumin (test code 3.3 g/dL 4.0-5.0 L = 1751-7) Globulin, Total 3.5 g/dL 1.5-4.5 (test code = 65778-1) A/G Ratio (test 0.9 1.2-2.2 L code [...] >59 L Am (test code = mL/min/1.73 29154-1) eGFR If Africn Am 44 >59 L [facility] currently (test code = mL/min/1.73 [place] 37857-5) compliance with the current recommendations of the [employer]. [facility] [place] will update rep orting as new guidelin es are published from the NKF-ASN Task force.
<br/ >Perfor med by:
[facility] [place] [facility] (HD)

BUN/Creatinine 25 9-20 H Ratio (test code = 3097-3) Sodium (test code = 142 mmol/L 621-047 7486-2) Potassium (test 4.1 mmol/L 3.5-5.2 code = 2823-3) Chloride (test code 103 mmol/L 96-106 = 2075-0) Carbon Dioxide, 27 mmol/L 20-29 Total (test code = 2027-) Calcium (test code 8.8 mg/dL 8.7-10.2 = 63387-1) Protein, Total 6.8 g/dL 6.0-8.5 (test code = 2885-2) Albumin (test code 3.3 g/dL 4.0-5.0 L = 1751-7) Globulin, Total 3.5 g/dL 1.5-4.5 (test code = 64054-4) A/G Ratio (test 0.9 1.2-2.2 L code [...] >59 L Am (test code = mL/min/1.73 88686-9) eGFR If Africn Am 44 >59 L [facility] currently (test code = mL/min/1.73 [place] 8[address]-8) compliance with the current recommendations of the National Kidney Foundation. [facility] [place] will update rep orting as new guidelin es are published from the NKF-ASN Task force.
<br/ >Perfor med by:
[facility] [place] [facility] (HD)

BUN/Creatinine 25 9-20 H Ratio (test code = 3097-3) Sodium (test code = 142 mmol/L 390-435 3238-2) Potassium (test 4.1 mmol/L 3.5-5.2 code = 2823-3) Chloride (test code 103 mmol/L 96-106 = 2075-0) Carbon Dioxide, 27 mmol/L 20-29 Total (test code = 2027-) Calcium (test code 8.8 mg/dL 8.7-10.2 = 46145-9) Protein, Total 6.8 g/dL 6.0-8.5 (test code = 2885-2) Albumin (test code 3.3 g/dL 4.0-5.0 L = 1751-7) Globulin, Total 3.5 g/dL 1.5-4.5 (test code = 82341-9) A/G Ratio (test 0.9 1.2-2.2 L code [...] >59 L Am (test code = mL/min/1.73 77286-0) eGFR If Africn Am 44 >59 L [facility] currently (test code = mL/min/1.73 [place] 8[address]-2) compliance with the current recommendations of the National Kidney Foundation. [facility] [place] will update rep orting as new guidelin es are published from the NKF-ASN Task force.
<br/ >Perfor med by:
[facility] [place] [facility] (HD)

BUN/Creatinine 25 9-20 H Ratio (test code = 3097-3) Sodium (test code = 142 mmol/L 420-492 1213-2) Potassium (test 4.1 mmol/L 3.5-5.2 code = 2823-3) Chloride (test code 103 mmol/L 96-106 = 2075-0) Carbon Dioxide, 27 mmol/L 20-29 Total (test code = 8-9) Calcium (test code 8.8 mg/dL 8.7-10.2 = 86044-2) Protein, Total 6.8 g/dL 6.0-8.5 (test code = 2885-2) Albumin (test code 3.3 g/dL 4.0-5.0 L = 1751-7) Globulin, Total 3.5 g/dL 1.5-4.5 (test code = 19592-7) A/G Ratio (test 0.9 1.2-2.2 L code = 1759-0) Bilirubin, Total 0.7 mg/dL 0.0-1.2 (test code = 1975-2) Alkaline 140 IU/L 48-121 H Phosphatase (test code = 6768-6) AST (SGOT) (test 14 IU/L 0-40 code = 1920-8) ALT (SGPT) (test 21 IU/L 0-44 code = 1742-6) [facility] HAND RIGHT COMPLETE 3 [id number] 11:29:03 [facility] : 1975 Sex: MRight hand, 3 v iewsLocation code: [id number] HISTORY: Pain in second finger of right handCOMMENTS: AP, lateral, andoblique views of the right hand demonstrate no acute fracture or malalignment. There is soft tissue swelling about the second digit without foreign body.IMPRESSION:1. Soft tissue swelling about the second digit without fracture or foreign body. Note made of mild arthrosis about the second MP joint.Electronically signed by: Sylvester Case MD 10/29/2020 11:29 AM CDT [id number] OBTAINED CULTURE + GRAM [id number] 15:17:00 Test Item Value Reference Interpretation Comments [...] No organisms seen (BEAKER) (test code = 165258) SURGICALLY OBTAINED CULTURE + GRAM [id number] 14:58:00 Test Item Value Reference Interpretation Comments [...] No organisms seen (BEAKER) (test code = 815146) Tissue [id number] 09:25:00 Test Item Value Reference Range Interpretation Comments Case Report (test code Surgical Pathology = 104) Report Case: [id number] Authorizing Provider: Laura Nguyen MD Collected: 09/26/2020 07:56 AM Ordering Location: [address] Med/Surg Received: 09/26/2020 08:55 AM Pathologist: Hilda Mack MD Specimens: A) - Soft Tissue, Debridement, LEFT FOOT BONE CLEAN MARGIN. B) - Bone, LEFT FOOT 5TH METATARSAL HEAD. DIAGNOSIS (test code = [id number] 3220) FuZzEwMzNcZnRuYmpcdWMx IHtccnRmMVxlcGljOTIwMl wbnrOrGWAjeWKiH1Xsfewq XVvgSY4jCK0kxIhomUTdbC UtITGdTnQlu3ima823nTCq q1wkVZJDsbpqhCo7gCwcL3 8qe4S0JgrcU79wjVFmENzk bGFpblxmczIwIEEuIEJPTk VaWByIUfCbMk1BFSJKZUYL ZeOYEFMSIF9bANBZD1WIVS glaCVvIYVpXW1pWm4OSLSY ObVoUdkWPe7HF21WAUAYHA RSRKOXQ1HBFFudIvCPEWZU EqXwUo5FICNNMMEUPR9KOU VPTVlFTElUSVNccGFyXHBh rhYFEqKMW94OHXJJUFHYOC QKY4SjKCVJEW2ZDULAMGVM LDuwVEKJDVvsXR7ASYGZFB xGNcnygJTnQVMzLC1tJGBL IIJeEG3ZIPMBJx9WVGOrM9 UNXN9AUGSNACTUUcIgnTXn vZuigkJdKHlzu0PuLSwpFI EkQU5poCnzJDMnPB3pRLEb I5ncmR1nkcm8GjTuXTMwEs H0RBLyprS9Din1FPMiFZvo e4tre5UqLPGzHHw6eAbyHa DxUXWqe0pardLqRtAuHKNr NZBgTXUzcDVxU590g3qgc8 jluuLxbKL6PUYyIBY4PEue irKtajQ7ZXrjwNLxXaP1VI tccmVkMFxncmVlbjBcYmx1 YFTwQ033OUY4lBthf6kuHN L5WMDgJKSmNhRoRr1ymEOl W631AEThYSERHLMohEf8QR IwkfMdeyFvlOEZh048P510 q4zyQYRftcTygFiNztpzn3 joT367QKLrgMHsmpTqQtMw TRJcpLYjgGY5OQOsOO5fys vjCCgpLVqwXCZcmyE1QRBf xSCvM0CrMGJkMV2ziameBF A2NNagQEEbDBQ2PyViKBNf i0Mfzyq5QjYwfl3omr37PK C5b6PvjJoeRXG0XLV1KtLj Qi3egTKyCYRpTQ2fBwNqgS LuMPRtwt54uPoaVSfuANT9 AGTkqvUpu5Oat4rnEhLszg QeS7tgE6XtGGYnOVLcLQHy NsOifkFzy4Ufb8YjaCEcfM a8u5phAHKmXWEmyRakj8dc DVD9EBNjoVThO9oqyI1nOZ ElDD2erfcuv8gzEQrhOFkr IJTpzFX2wdJ7GYZjvKJqC4 OwoC1yLGBvDFyfMFGslxe7 BrEwCx6rnDMtzBlqDXuwDk twYWdlXHBnbmNvbnRccGdu ZGVjXHBsYWluXHBsYWluXG YwXGZzMjRccWxcbGFuZzEw MzNcaGljaFxmMVxkYmNoXG WjEFhwK5hcJmGyBkLpRpz0 RPTouEOyTWQpHte3FWXwyI MlLIMLcAawlK9xYNVakFai xS3kdGP8NNAofyOqwKVBtO 1gOPUVeH3oMzBqXBVcBqN9 LTcxNjNccGFyfX0= CPT Code(s) (test code g8fiqKAzSVRaxHC2NkVbUB = 3357) Ecz5hsf4JxtMYmdRAwREsp fROzwrOcoq05sNI8jG28OB 9dDXYtLpJ7ATVxluH4Qdg6 NDXnHLXpxNVcX618p1qdo3 gmkdJfcEX0zDhsQGOiJCJe YWluXGZzMjAgODgzMDUgWD HxOTu1HpUuUUolTAZpvl9= CLINICAL HISTORY (test u7bplLWuLSPgyTJ2YyWyGI code = 3356) Bmq0fac7CehJGlgCLnJUng aYUpxpNeew24rJJ7mU42TU 0cHCFtYwB4ULYniyI2Gvr3 LJXwQYPpkYLtG478v9czl6 npvjMjuCK6bNabZMSuVLNs BMbaKNIbGnSsEJjsXfL4cM SokVhhQJIkn4RrrBKxkHWf w349ROXlf39rpBO8QMOnz9 j5fWPfrBAzKRDjkmHlRDty gDZ7wpZfeVGavA4toW1vNL CfmNinWiOua69kbFBdb87w NPXds5QgT9yjuYFpGQNklj Yco9YxEv6ylLngwG4knRZd pSSnFQXerBdcYMOus9BxH7 UgXHBhcn0= SPECIMEN SOURCE (test d7bmsSFiEVUywVU9UoRfEZ code = 3377) Vdl9gcy4KhmCQetCUkTEnz iCQaisGbpc98mXN9hU55HP 2yQUJjQjQ2XPXghhJ7Fmw6 NALzIOVyeYVdQ960e6yoo3 jottEecHK3oFbqPJUnTUGz JYacPPUjIoTsKB7oR80deO F1kIYvmTDqLPDyFfUpODFe NF65IjYPBoFGg64mGUrmZX J9 GROSS DESCRIPTION (test u0macXHnAMIdmMD7LpAaKP code = 3366) Qel3dsl8VxaSUdrIVpCKdf nMRuvoAwyk06eFU8kX67PR 3gWIUmCgR4DLMpqoF5Iqa0 LDHeGMWvbJBxL719u2cec6 ckwhSoiRY6wFkxMPTsMYTk AZaqJHCzZbHtHL8cQAfrXF WwFMTxeHKgHFamJNUmB7Mr azYtHJsvDNBlL06jwTZysn UnQZaexWaaTh5wzHKfsD3c nFTlTWfaLEF6zZEkAIZ6pp YkFFUmZG15TFxjGE91oUSb HZNpLAQvGPJji99wwZN6yF FbvZRyPVAiVtUvSTIzGK09 Sn3fLGSuY85fl8wxsOKir6 FzVPUiEZjqQH29WKxmYY2b TAXfPCTmCNakYQ09VC4pOK Zmhg59ePl6JSI3kOIgjYWb o2mtP0epwFNiQj7uNJwhgK KpaJEjMwRDuDVlpNX3WKJg tP8oAQRkFCD0FAVzjXvgfH AuTROxIBqgdHPyC4B3iZ9z ZtEcHWOnvycfATAmZv6aDR hlIHNwZWNpbWVuIGlzIHJl V7FtdnCiBDxtUXMyD17wbC KfygSuEBhelGtiQu5qnGFl iN0mmBDmAIndWOK4rAQsID C5wsNzDJYeTX69MSxsUH79 kIRaPWLbQWAvYRMaSu5cVS NcJEu5IHFpnvPpl5WmUW2e OMIjTP33BOdjIHH9TODqL3 6fHvQuP37cbyEhl4ByFz3b EMO4vJNkFYCbzHnzuPhalb XjWNO3xPixF1DtKPUjn0Ua SPVwF3Vfp09uWGOuiqGjh7 NppQh0eYJdSQcxFPZfPIIr aUVzWSXqX0LcE8yfrSGjoB pecs3uEPZpF7JuSKVqas8= MICROSCOPIC DESCRIPTION o9ygrGMhLMCnwVR3XgIdDR (test code = 3371) Mgf6bqr4BtnKRwdULhXWxo uJGlsrMuna07xTZ2wN09GX 6mTNZbEdZ8VMNvnbT0Ppr0 FCEmWWBerQJdY427m4vpf4 uxdxNqkXV2oYtgYXMnKLEa EBdyMCKaYkClJF0SPsFWHB Zce8CeVAEpGAsaMSX3 Gross [address] [facility] performed at (test [facility], Department = 2777) of Pathology, [address] [place] [address], Technical component was [facility]. Titus[facility] performed at ([facility], = 2778) Department of Pathology, [address] [place] [address], Professional component [facility] was performed at ([facility], Department code = 2779) of Pathology, [address] [place] [address], [facility] [id number] 09:25:00 Test Item Value Reference Range Interpretation Comments Case Report (test code Surgical Pathology = 104) Report Case: [id number] Authorizing Provider: Laura Nguyen MD Collected: 09/26/2020 07:56 AM Ordering Location: [address] Med/Surg Received: 09/26/2020 08:55 AM Pathologist: Hilda Mack MD Specimens: A) - Soft Tissue, Debridement, LEFT FOOT BONE CLEAN MARGIN. B) - Bone, LEFT FOOT 5TH METATARSAL HEAD. DIAGNOSIS (test code = u8hnaUDwBNGes7lwQUEnxX 3220) FuZzEwMzNcZnRuYmpcdWMx IHtccnRmMVxlcGljOTIwMl lmbeUaDEBbaDZoQ7Nhsywa VUiiST1pWP2glYstwGPhsS HrOGNoXqJqu5ioa122fUQd a9icPRFTmflcdWf2eTslJ1 2ex8L9BpgkU69aoDMbMYav bGFpblxmczIwIEEuIEJPTk HtPSkDSrDmSp0OTGVOLAJD XsWJUZCKSG8bPGOYQ5VKEQ vvrGPeBBUgBI0uPb0YRODQ ZdSxPxjXRu9MK34QATZCSO HDPQOKK8QGZPbeAqXQXZEL ZhWuYd8BIXERACVVEW8XVL VPTVlFTElUSVNccGFyXHBh csQEHyRJK97ZRVWTBWRFDY IWZ6WsUWSAAY6YXVKMINOU TPmxWYJCXMdvQP7GPJMYVZ zQVusumKFwZMKqOK7gWRQK XEZcQW2PVOXZEb6IZLIzZ0 ZSOK5KZZZAJAPDUwOftVLz pRrkydBaFIasc9VrQJgzOU AkFO4geDfcWHKhFY0rILEe W7kliH4hizb3NuQzSQLnJg Z1QLNtnxX4Pup4BDEuZHhr z5myv0PaWQCqMIz4mPghGt OqDXSuk2dfpgZxElGfTYOs UTBsIMIpfYOzR321l2utn9 reshMveCG2DQYwCWN9CSik evJgxiN7RUkylOZzZrY2WH tccmVkMFxncmVlbjBcYmx1 RJVkP812THA6zQwah0hqPI H0FSQiCGOfVuQmPj2ycWNh G706VXKdDAPLKLRzaFk8WG FnmqWjewYrrCFNh056B369 a7lmASLswxAkdUkVvzpro7 pzL800YIFcmIUbfoGyQgFm UPRmaGPqnDS0WIPwOF4pks veUVwuYPxwCBZzkcN9IPFn dPPjK7SfAATfAN6hvbbsCZ M0LWdyRGOwOUC4IhPvURMv h1Kzoiu7RsNrui2dem42QC N0f9ZoqJzuQNI0XXV4OzIk Xg1ulDVyHIFeOH6vChJceC LcRZOlql41fPmuMKwdEGN7 AUTyycOxr6Flj7bxWrDoct YpF5myK1EpRZCkTFFwLMQy WfQcioRsy0Ywj4HlvNYiqX l2l2fdLXWjVCKhvMfrj1oz SYG9PLSabGYpS0dvhY3sAB JeHA9chawke3hjJNefXObc REGohJP6khW7SVZcdQBvY3 FhiK4lMHUaEXexDUIpqmz6 FjLcZf7kcRHspAovONflEu twYWdlXHBnbmNvbnRccGdu ZGVjXHBsYWluXHBsYWluXG YwXGZzMjRccWxcbGFuZzEw MzNcaGljaFxmMVxkYmNoXG IqNAbpI5mbHpWxQaKkYby2 HIFerTAbPVMmTzk0CLDtmA NuYXBThBjbiI3eCPSpyMmz pX1adTL9LXZyewWsyOSVtH 2zCHFNcL0kJtLrZEZtCrU4 LTcxNjNccGFyfX0= CPT Code(s) (test code h6oobNAoGHRydJX2YoMjVZ = 3357) Isu5ywh0RhaXFwwGSrHUbv wKAwtqZxjd69hDS9dH74ZP 1eAAItFaK4DQBztwA1Suw3 LTBzYPJbjBNjG649k1ldn9 hcgoCaaJT0qByqEMHyJJDz YWluXGZzMjAgODgzMDUgWD YsWPx7KbEqEReiVHJidg3= CLINICAL HISTORY (test g0fheKIkTHJwpVE1NwPsJN code = 3356) Rmd2beq6ZfdOHdcREaWPmf iKIkytWxix90sEE6sF80KM 9cQBNdTaM8YCOyfsW2Tnx1 CMBcLPYajDUzV197z9ejl4 eorrMwbZJ6vFfsBGGiIQCf FEiqCOAqFxPhBSymArL3zQ JxqGhlFMUzg2QywNCegVGp a562ZADlf80knPG0CIWie6 b1nQLkaKPpFBCupaCwLXht oNY8owYvsUBnlW3yfA5pWE TyeSnyAbNrm48oxPQfq74p BGZmx1KvJ1nkaWTqFRKonq Xtz4TgKu9tlHmmdI5dgLTe fTDyYHAabPiqZBQrx2MnX6 UgXHBhcn0= SPECIMEN SOURCE (test b0unuQGuGLSmgLL5EvVaTP code = 3377) Qor2kzr8SafJUmjDOkKQwr mZDjrtYfii64gWR4pA93GB 3aMXAjFyU2LHMsdiF5Knw3 VKVuZVXsxSGdH718f6mxq4 xdueLymEU3xIwnKHWqIXUi GAqzGDRaObNzRZ3eK67kbP D5fDQqbYDfMWWsSqLxKLMe PF02GjSGApDRp02jWTngDJ J9 GROSS DESCRIPTION (test o3gyuNAeIZKynNX5RiJpYN code = 3366) Idt1phw0ZmiUTjrTIhPZbc qWOtyyIynv98sAA9xE14EG 4qQIMfIsK3DPZdvsR0Rli2 WNIlYSLeeXWsD272u9onb7 aopmYneZY8eCebTPAtYVKa PSuhTLYzZqEzLP1mRCypZM SkFNAlvACxGMukNVIoD8Aj esCuYZdpAKMrI49biZVpid JiWPskpRorWv7ugVSueO6r cCUtUVyoCRS2oZRgSCJ7ew HfLTJcFD12NAkyYA96vUTs QZBlGSWtBFNus02voQI0rH TgdDVeMBWmGsQqFQTyNG25 Gu5kFTPrC55jj5tzaMWuj8 NaNLRiZOxeGZ54SDmzXS1u DAWkHIImASjgQH99LU5lUH Vvfx24jYe5YHL9zOQdyYNx y6dcS7gbyNJpMl1lDBzbqK QjiVGrTpYPqHLjtRC3QDZm dR5xFBLlWOK7ZYUmnZwxwI VdPFOhVGbhdKWtY7X8gH8o DhLjCAVnphtsBVTrXh7fOU hlIHNwZWNpbWVuIGlzIHJl T7KpnjMtDMxcYMMcP10trW PdxbVaXIhyrEbbIl9itSEj sE0ijWMcDQkfCFI7tJJcJK G5acTjJBLkCM65ZRueGN27 eKAgZQUmXCQaAOYgKz1nQU XgDUg4VSIyqxBea1EqBC5s ZWMgLE06BAifRKA0KDOkN0 2iCpWtU38jbsVlz2MaNo7x WBU7vEWkTSRqjOltcIdgld JdUXQ8tVilX2DmNGEmg4Ce HGUiF6Dhg87oMNWnyuDda1 ZqlCn3qZVoZWguBSUiOFGn mPMgCZHxV5EoB2zxqIKwkT baog3jXSVpZ9AwUAMpoz2= MICROSCOPIC DESCRIPTION f2ybsOFxXXIkwHA9TzJvET (test code = 3371) Pyu7ssm8EyyAGgyYAxTDix dUWbcdKivk32tOT6lO13FG 7gCZYpRvF2VBChheN6Zih2 KAGjKGAogZJyY924j3wwf8 ivjkCnxWT3hQjxFBIeCCSg RGqhLCZhNwVyVM7ZCfGMGX Xeb9KpVLIiCXrsSYN5 Gross assessment was [facility] [place] performed at (test code [facility], Department = 2777) of Pathology, [address] [place] [address], Technical component was [facility]. aniyah's performed at ([facility], = 2778) Department of Pathology, [address] [place] [address], [address] [facility] [place] was performed at ([facility], Department code = 2779) of Pathology, [address] [place] [address], [id number] 09:25:00 Test Item Value Reference Range Interpretation Comments Case Report (test code Surgical Pathology = 104) Report Case: [id number] Authorizing Provider: Laura Nguyen MD Collected: 09/26/2020 07:56 AM Ordering Location: [address] Med/Surg Received: 09/26/2020 08:55 AM Pathologist: Hilda Mack MD Specimens: A) - Soft Tissue, Debridement, LEFT FOOT BONE CLEAN MARGIN. B) - Bone, LEFT FOOT 5TH METATARSAL HEAD. DIAGNOSIS (test code = [id number] 3220) FuZzEwMzNcZnRuYmpcdWMx IHtccnRmMVxlcGljOTIwMl vllyLvPYUjaSTrK6Kyorqb QMmmKS8lPN3zvJsyyLNrnP UeGIGnDaWvl7osh320dADw g4mqEPDMlqegpSu4jGczM0 8si6Y0UgkwC03giAHnYNhn bGFpblxmczIwIEEuIEJPTk BgTTbCFdRzWv1IGIAKKKKO TvCDUCADMU0xKVLWZ0VCPA uqfSJrQKLhNE4bRm4GNWBB BmXiUliLNa5EN23OPWKEAX BZFLPOD7NEZQynEmJILXAC SmGdAa6TKDLKULUKGC9ETV VPTVlFTElUSVNccGFyXHBh mwVDOlEXA20LVIFNSMGEXA HZU4QeZPDBCS6YBPDBAKXX JXnwPVCBSXzbZN8QULZCCJ jZTaiwvFBvRLAeKD0sBLLH GFLoHC5STVHPNj6TURHtN5 LCJB6AJUHCVLBFXnFpbGXr tLbxywKcAQgjm0CiOAnlEP JdRA1mrCbgWAMbYO1dDRCk M1jhuS5ncjs9XhWvACGvRv R2YXYiznT8Xxv5DTNaXLcn t8dht1OpCPRlAOi0hJzzWe GfGUMiz5avquNuYoDeVLEg GSDlDMBkwPHsR008y3sfl9 gtwvAyoTO8JHYgGOJ1TZnb kcRiihT4JThixODxOeW8BN tccmVkMFxncmVlbjBcYmx1 GLOzE556MXN9bNfkm2qiPS L9OKWiLKPeGvXjNj1lwIRq Z531KMLkIYRPMSAtvVo4LB PhlzNwnxLdmXVWz113P260 s2kzXIEdulXzbUuRwtbzz2 hhO168JTMosUGlpcPkCyGt ANKbfHSojOQ9TLLyPJ1ssr keOEscMYxvRUMgsjA0HFJu eQWbB2XgNAVmUN1ixlgnPQ B2YDrlCORvVBU8ZfYjYKDn s1Lavgg4PcKjmz0png20WD U6g8YtbUsbQJR1YBK9PuBw Vj8elHOzWWRdDE1oEiYelP HmBCJurr21jIrgJGpmCOB2 CJDpkiUum7Wng0zlJfKmtt VvV1cmV4BzXUQbXHLeMGMw NvLxbiYri4Nak5XjpXMgjG w9t9evUXNxXLNldCfuz5st MGP8MJGdlSBbX1momQ4jQE SaDV4qrfyxk7ufJOwrGUay HRMusQJ4pnV3ENZtdTFtE0 OvzE9kHJJaVAifFYKalgo9 EuStZk9cbKLaqUdbRTopXh twYWdlXHBnbmNvbnRccGdu ZGVjXHBsYWluXHBsYWluXG YwXGZzMjRccWxcbGFuZzEw MzNcaGljaFxmMVxkYmNoXG QoVBsdC7ejYlLvBeKuCct7 UQSssPFdLLMiVci4MRUnvH EcOVAPqXdxzJ6zFHMxjJxr cS6lrCN6ZAYxtjYqwCJTxA 7hIJQXoS1wTrJkAJFkVjU4 LTcxNjNccGFyfX0= CPT Code(s) (test code d7vjkXXwPESmzNI0ZdRkFG = 3357) Ntt2rrj1KwmMEsrXBmNShr lECbowRcqy58kQM1oR48GC 5iXFSvQwI2IJCjflW3Lrl5 VGSqKMXdfTWoE146y0bod9 vfyxOiuMZ5sCzaBWKfOHBh YWluXGZzMjAgODgzMDUgWD AxXLa7KpOqSXgeNCJder5= CLINICAL HISTORY (test v3ybxTZyEBWpaDY1SrAsJL code = 3356) Bcb4ojv3LfiCFpyXVyULfe yPVdruUqgf66xKK0xJ08UK 5pMMBjZjB9WKJxhrC6Dqt2 JJPlDRZezQJvQ240j3ckj5 mpctQkrFN3fLjoHTCsFPXj WTbvSSNzLuXrUSdrCjL9fU TjjVmwJATny7FpkBQdnARz u987VXZot21aeZN9FPLon2 l5bTCgsCQsWVMiorFwNQwz qDE5eoDlzRHnzQ5adD4uKW TpgTvrMyFfv17rnSMep19t DQJdu9LkV3yytKZqVLUdmq Vdp9AfUr0vsTnjnF1clCZq oPOqXYDxmAdgNXIpj9QfL8 UgXHBhcn0= SPECIMEN SOURCE (test r9iqnBFdSZHvdCW5JpUmQK code = 3377) Gst4rlh1DkuBJbrCAjZHry aTEbrkOpuf30sTL9mP27KO 8lYMTqWoH7HAUmsyJ9Qej2 RYHwGIYtcJCnA441j4bgg3 ittsYxcLG0oYjjMPKgZYNe SQfyWVRmDeQnZK7vF04beM J7xMOhtXQnWPCnLzRfHBJn MD99CrUSLlCYr60qYDpcED J9 GROSS DESCRIPTION (test q4emjOQgZFIiuYU7YxGbMR code = 3366) Mks1hww7JpiVPwnHRxEKsv uNCoahOhoo33sFV4iL18IG 1oCXCtUzJ0HLMbjlZ4Maw3 PPNqPYOnaRMsT536p2aeh8 nrbbIzvEX3cTudPUMxUHMz HIdtUOQcNjNvSI2wCAugOG BvYPXwiXAyGOjtDCSaW4Aq osPrDTnvOUHsP91voGWluj LsSDjnmGlcMe6bbDNnpG9e aQNkUHtpJYF6kYKqKZW9fo GwMFUpIZ63VPypDH03pTHh QEUzORQeETHeu85jfAR4eH QkzSVeWZJhUfBrLSMwLW58 Jv8eDHBbA78cj9xfbSOlr2 HlOGAdXLsaNY64XVydDO2a GUHkHFPjDNahZL97JQ2rLK Crbc50oOf4UUL2wKOyqSWe h6xeV9olfPBfAq1lNAmvgV HmmNInEpQBwPPhhOF7AZIk eA6wUHFzDTI6BDXdlDeiwL XoKRCqGXvqzPVxO2J2tH8j PxAgMRYycqxdDKBbNf8vWR hlIHNwZWNpbWVuIGlzIHJl F0CahwVrIAvrUCOzV90swP SilqPiCJhqgEdjHd0xbVOu oK7jnCPkTNocTUY5nZPsVK P2mfStUBXmFB57QNmoRK06 qJDlMWFcFIOoGACeDl3yRW XpIQm1OETnrsEwd2PuLL8k ETZiQB13PVjrQMN1ENQdD1 4lYvAbU35uzrRuv4ClMz7s OOG2bAJxHIBjjSirjMrknf NkGGZ3nAzaQ3UhUSLew9Yt TJLjV2Qan41jKZDmvlBze6 DqfOg4eTNtRHldDBXyFKAs yOQiVNQaI9AzR3dajYTwsP rvjr9aEKCoO8UtGNSzuo1= MICROSCOPIC DESCRIPTION k5dllQZfCLOnoPI3YlSfXF (test code = 3371) Fjh4ddr6ZhtCTalLZpAYjy cDNpkeKfyw06hEX4sC14OB 7nZOWsYdO8YLXvbqH6Vaw1 UMXpQJOarEUiR725n4hco7 mmtsXmjUM3rIixPEIsTJGq FAonDHLfQhUoWQ2ZZlMZXE Kxg9OuQNFzSLanDLP9 Gross assessment [address] [facility] [place] performed at (test code Hospital, Department = 2777) of Pathology, [facility] [place] [address], Technical component was [facility] performed at (test code [facility], = 2777) Department of Pathology, [address] [place] [address] [place] [address], [address] [facility] [place] was performed at ([facility], Department code = 2779) of Pathology, [address] [facility], [place] [address], [facility] [id number] 09:25:00 Test Item Value Reference Range Interpretation Comments Case Report (test code Surgical Pathology = 104) Report Case: [id number] Authorizing Provider: Laura Nguyen MD Collected: 09/26/2020 07:56 AM Ordering Location: [address] Med/Surg Received: 09/26/2020 08:55 AM Pathologist: Hilda Mack MD Specimens: A) - Soft Tissue, Debridement, LEFT FOOT BONE CLEAN MARGIN. B) - Bone, LEFT FOOT 5TH METATARSAL HEAD. DIAGNOSIS (test code = [id number] 3220) FuZzEwMzNcZnRuYmpcdWMx IHtccnRmMVxlcGljOTIwMl ccfdGiEWUueFKfF6Siavel HKxrGL6oUW5stHtjtCAiaO SvRSDxQoVtx0qhf833eOXx t2fsMDAYwyrrrOb1tMlhH9 8yl3X5KzjxH13ufRHdBMgu bGFpblxmczIwIEEuIEJPTk RqRLxPHzGaQi2LIFCSCYNT XqOZPDXRQH9hJWCYB5ZQNB zbkIBdXEEoXB7mVl7JELBV YhOeAmjTUd5GR10GXQUBXE HCYPCPN3XTPRiaEsLQHPGC EcDjEo3YMQTSTJFNLN6FSF VPTVlFTElUSVNccGFyXHBh zvIMGfISM13OANDJAOJGDQ VYD8KtDXBEFW2BSHMXLQTI ZTnyCSHWMHbkJD2HSJGEFS oUYzvqrPLhASSuTZ9gCBBJ KEBiCV1GHQVJRp0KRNGkV5 VADB3UDMKGJYVITdQhkDVx lIugmhIaJViwn2RiKQphKV TqKK2mfEsaYMQlHG6oQRLf K5tmjB6kloc0IqMnITKpFa F3IXBwsfE7Tch9TMPiFXty c6oeb5FiKMCuYKj5fJlwSf CbHYKor8pauwNcAbTtLXFx YQGzNCPptNFqO942e2wkd6 ppiySojEH4YQAsYLG3DOhv hhGcyfA6JIekzSZtRpG2QN tccmVkMFxncmVlbjBcYmx1 CCYqH629XTM6kLdud1umAM E8BWHfBCTyIiJiZw1koLJf N327CAVhRFSLMEPptSb4CQ IdhfYhudIhmMSRp770X618 w8scOWQwsfYlpRdMswngc6 bwU381WQVhfBDsdcRmHlXh MQOwfBAigPA2FOQmYD5gqg swWPipZNbePCUvtiI3GPQq iGAqI5RiBWSiFX5wtjfeFO I5ESuvQCRgQIF1TsCuNGWa m5Pmfdd4NiXkui3ide29NC H4y2MqvTnaLMC5XLW6LsBz Jh6xtLMjEVPtGK1zHsQcnX SuAIEccq47vIumPTckINV1 JSDfmnEdo2Oez5aqGdPies UxF6duP1BcHGAkUNDjTZZc WfJfodVke4Vlc2SqbMVlxF b0b8viRSOyZIGuiWuue5tk CXD8HMLikCXiT2iswN3qAK VxYA2tlgddp3wiMJelCVkz ZGRvuMP1aiF8XDZcoCFpE8 YdqP2fBEWlROtkBLEkhda4 VoRkCy2fjOKgcLgaXRvlCr twYWdlXHBnbmNvbnRccGdu ZGVjXHBsYWluXHBsYWluXG YwXGZzMjRccWxcbGFuZzEw MzNcaGljaFxmMVxkYmNoXG TcMVpzX3wxQpFyHuDcUgn7 YXKcsMEeCQFmSds6JGGbtK CuUJVBqBdcwL8lGFQsjSsp eQ2drLD7XZIgknIpeARAwH 3aKONDwE8oGxAtZSKxYdX5 LTcxNjNccGFyfX0= CPT Code(s) (test code y9xblDRkCIItlUD4MvBhHY = 3357) Sxr8cil8IciQSjgLYwKFdh bSIufxMfbp18fGD6jT42MB 5vRKZqJrE5QCEmvoJ7Qfn4 YJNbWWDpiHIdB099i2lpq3 utooWxsRI2wNkvQFNfGDQa YWluXGZzMjAgODgzMDUgWD BrBDc1GiNvHLbbBSYvvw7= CLINICAL HISTORY (test t6kubGShKFHhrPJ1WyAuVW code = 3356) Wil0alr4UefOMbfXGiEUin zBCydoHfze47aTZ5iL02SO 0lGFKkYpO8ROZwfdC5Swl2 URPgMWCqmEBeX168s7tpy4 kvynKnvGV2uEqpNNUpJRGk VHxpZTSwLdKtVCccFyK2dX RykDkwKUEpy5HkjCFzuXLz b940NIZpj84pwGV4STOtt0 e1lXZqyTQrTPLtgpKpZZdv nMO1kcBhiAPwzQ7rnD8wPY RbuUftAxXbf96rxJWpg80v ATBef9RmK7ebmYJfOSDntf Zfj8InHv8fqQhykS9jgMTa bBBfVVTewVkfFNNeu0HhI6 UgXHBhcn0= SPECIMEN SOURCE (test n2pwoRPpMHLdaGG1GwGvTT code = 3377) Vbi9itn8MhoWYdtDMmCPxz hVGtczOsig80xKJ3fH20RK 1nNTJoOpX3JBFhcsJ9Lyo0 YUKsWIBeuCVrS667b5wkj7 hxsgBiiBH6fKcdUSBpWZKd DUqiXGVgEiRkEG8rF30gkW B0fSKubYQgJAFcUmNxHTTj DF36DiHMKsQZc34nMQjhKB J9 GROSS DESCRIPTION (test p4zoyJMcAKLdtQV6MjKlKW code = 3366) Amc2teg3OhbQJioMRqASen uJNhydVsnb17aFY3sN45BH 0zVWGmIcJ1LCEmnjB6Aok3 GDWqVMGgfHWzF787h2iwe3 jntuGxhMW3xGbjOBVpKINm AAgbRABlYoWtME5bQKgoSX XxZNMmzBZnIOybWPOdU2Ve ojGzLLnxWVHdW37oqWDemw PrNCexeOweMj5jrRWmaW6s pISzZIsxOCK7cMNqRYW2zb BoJYGuBV82PGujXX37uYCt OHVaOSWaNMLsw28ktNL4jF AwkTMfXBGgCmLmJXOpOH24 Lu4nBWYaY94ko0susJNxj3 VfVICuQZjnCD61MLegCQ9g BCSfYGMeTZbnSF05RU3wQA Hoyz33kPa2SMZ0oZBjcZCb o3hzJ4ouaVWwNy9tWNeyyN PnoJWiLqWBjMQiwSD4IZIa aO8xNCIxELB7GVTbhPbrxH AuVHRjHXgpdUBsH7R1qD3p MxUoCHXolzmjRJHlHr7jUG hlIHNwZWNpbWVuIGlzIHJl T1KuqzDvLJfdEHQaB80uaK DygpJhMStjoAypZa9jlOFb bS4ywQLaVCkmVLP0xPQeKI V8xdMnEQCsSU06BSpeBJ87 bVBqHEYbMLAaYCTaZv4xZQ WnTYj3NMOdlaRbj1PpPR5e BDUyKP89RGsjJRZ6PLCtL6 5sBuHuI15noqApk0JnUv2a QHD3lJKhCFEdeHwdsNxcor YjAOU9cRwlS3EmQVBxv9Rx NKBqG4Zeh42lRZBxezZaj1 BjbPg3vDQmWSfaXMKvJXId yWPkWXFqZ3YhX8ecjVLsmB xwwj5lZITtU3KuMIOzvd2= MICROSCOPIC DESCRIPTION i4rufRMxSTYltBB3WnGoWW (test code = 3371) Sou0khn5LitEJhtIDmIIdb bKWiowWvji95nJY8vM63XM 8dCDCcImJ1UMFjwiR1Apu3 QOLxPHQjrEWuE125i1lbj8 vutqOhvWM6sSucEATuADRh NLcwMPZdJrSdEC8HRiLUJP Pce4AvSMFoLFvfDMG7 Gross assessment was [facility] performed at (test [facility], Department = 2777) of Pathology, [address] [place] [address], Technical component was [facility] performed at ([facility], = 2778) Department of Pathology, [address] [place] [address], Professional component [facility] was performed at ([facility], Department code = 2779) of Pathology, [address] [place] [address], [facility] [id number] 09:25:00 Test Item Value Reference Range Interpretation Comments Case Report (test code Surgical Pathology = 104) Report Case: [id number] Authorizing Provider: Laura Nguyen MD Collected: 09/26/2020 07:56 AM Ordering Location: [address] Med/Surg Received: 09/26/2020 08:55 AM Pathologist: Hilda Mack MD Specimens: A) - Soft Tissue, Debridement, LEFT FOOT BONE CLEAN MARGIN. B) - Bone, LEFT FOOT 5TH METATARSAL HEAD. DIAGNOSIS (test code = [id number] 3220) FuZzEwMzNcZnRuYmpcdWMx IHtccnRmMVxlcGljOTIwMl fiodLcSJSxsXFwH6Ttjlxl HUomHZ7cAJ6pkHhjeIIqpR MuSORfDvCtm7unz151zOCp h4vsBJTXsljkrWy1dZtgN4 5mn8S9MajoU19bfHPpJCrm bGFpblxmczIwIEEuIEJPTk MhLDiFWtLuDy6RWXVMLNBS VrDJNUJZPU7hGCWDZ8HJZM ockEFiPNXqMW5uSz4VKAVU JqKlHaaGSa1ML81NKLXVRO IKNADVO0YAKJsdDsQUOHHA VeToIt7HWSOORDIHKI9FHU VPTVlFTElUSVNccGFyXHBh rgREWxYXY25YTWCYCVLDVL ATW9VyOIVBKE6CBVZWDJLP JTqsYVWFFGhpZO4BNHHEOK yKVjupoDVvDDOsCC1uAAHM LXOjDZ9UXKZTKz8LUMAqM6 RDQY2LFSUYSMTSRnVtsVAe eDwljqKnOJvjm1CvOGaqBV WdVA6uqHqkUEHzAD2yUKRc G1hhlB9vggs1WaIdXCPmVh M2HNHbuqD0Ngk8AXZjBGwv t6rce9ImEBOwJQx5oRuhXp NcFWDhn4imixLnWmPtZLJb XVFcYMOjzMXwW690n2orp3 mxcbZwsRO5HIYoGLE6DAyd ojRtpzV5HHeqmPYrDmT8RB tccmVkMFxncmVlbjBcYmx1 DYXbV826YQO5oDkgm7coLT N1CICuCNZxBkCcWe0vgCIk D656ULJtPQOTBJNfuRf7AU CufeLyyxMubOMSp892E926 c5aaKHGzogVnyJiObvuhy7 tuN516WBKkxFCaveYjIwRj JARlkQRfgWP2PYFlJT5hbz whATtmVFuxHMJxqyA1KVVk pQNgC4ZmNUPiFQ4slqtmDF X4TUlcFNJnLJN1SnPuOPNb n5Ejnvt3OcIebe4ydg02YY Q0x8UyoDdvJAR4BHH3AvFq Dg2skQLfVMDtDY1iKhHdsL QvNQPxhy00aZzyJKipHGF2 AMWzpoXcl1Grf0caZiUrts LdG6kkA4NyTXOxLALxXUCw BqGhleOhp4Fzf9GjdNXgiO a7r8lpOZYsGUMvfEpum7ak JED2LNAfpMHfM5llmO8fGX ZkOY0ckglhh7zvBCowDAnm YFTybEI8grQ9VMHquJXgU9 OseG5pQCXfQYcoBWKdrfx7 StRmCw3kaBJzsHujCLqqJt twYWdlXHBnbmNvbnRccGdu ZGVjXHBsYWluXHBsYWluXG YwXGZzMjRccWxcbGFuZzEw MzNcaGljaFxmMVxkYmNoXG JvCIgtF0buUoQfZcKyQhu6 JGCmqBQvNYKlUmy4WLCrfS HfLTYUoRizeM6hDREuwExd aQ4cfSS5AMRlwtHqsCNCeT 3jFFICuL6yDhQtSYHoUtN0 LTcxNjNccGFyfX0= CPT Code(s) (test code f4hrpXKnKUMsfEP4KwZkIC = 3357) Qam3bja5LxuDAngMGmIDdj dTIdxwLgmp15qXO2jD36LW 3oGXZqEsK4PVBksxT2Nsj2 JZYjDMCkbFBfK000j9nyd1 omreQcxFT0hWxeQSKoDLEm YWluXGZzMjAgODgzMDUgWD JiZUb5BbZpPKvdPAHqsr7= CLINICAL HISTORY (test n4hbeDXiSZTinJX2GfOuMA code = 3356) Ikf6kxu8RpvUHxbWJkUQxp sKYzzjObvx64sDA2wS79UX 5cUWKkVeL5UKYdstD2Rcm1 ONLdJXAjbSVfR138b9ras3 bmvtGymEU6rMyyUPLvYOEk FCtqCOSdTbVgDNdiUsV0vE RkpVnyPEScv5WqtHBubJMx q930MBCwc48xiVL4OCUod7 o6cGFtyGQrZODvzfYsTSag tMF0jmQioYYmoY2goM5hGG SfxQrcCkVvh44xfNLsv68u YEDzs3AwK1ghwRHoPFXzee Djt3TuRf6gtMobaG4kwPQf qSLpZZIzuGxvJKFkg4GwU1 UgXHBhcn0= SPECIMEN SOURCE (test e9srfKLlNYNoyCY1CuWqFV code = 3377) Bss0doj6XmbTYjdBByUAqk oAPjuvArcv64bDG6oI72IL 1eTGQdVrH7WPDlvkW3Pee1 TVDbQIVsxVPvG520v4qhy5 ahdzKcbVN2jEjtLYTmYDIq HVvqJRSmSzCaYE1iW24liZ P4oECvhEOpCUVhPyYdSDKe CU32DnBPPbXYe07dTZhfVA J9 GROSS DESCRIPTION (test w8qqrZOkMQPooJV4NyTtNU code = 3366) Pnq7hlm8BkiRMxdWSaGCcz xRQarsShmz11yMW1cY94RC 0xSRJeKlH2DINoyaB5Djc8 IKLmIUAwwVUaK045j0rtc0 mlcnSeaBU1bSzgCAHtGZJw UZboUDLtAqEaQK5oUXugRU WnLUPbrCDcMLwmANOxZ9Xn olBjIKpkPDUnM83cyEOcvg WuWOduyGdyFe5nbJRsdE3j jKXvPFnzHQD7mBCtKGW6sf UhFRKjHE93UUdlEA26xQOj VKCaJVKlWVNgo79jiEX9tB SjxIIrSQOiElIoNBYeUT71 Hv4aYIVhB01by4sngUIhu0 UcEJYpLLuiOT77JDecGV2i KPSgGIBeVWjzFX82PC5nKN Bdwh14oTs9KYZ2fCJcsFKq i2psO0jlmXWsUv0zKGquuN SqgBFhVyBGaDWnwPK6FNQn gP3rDFPbVEE0QGDruEljjC ZgRGIwHSbtoXPeF5W3wF0c DnDlGAEvkjnoQTUvNw8bIK hlIHNwZWNpbWVuIGlzIHJl F8GrmmJwYZybPIDcF56rhM RdbfVcHJiymYliSq0uwVWr dC0cvLJcMTeaGFQ3gLBxPU S6xeLqJJUiJX37OEwmSQ71 eIDnBMHlBCJuXGWdGk7yDL WvWFa8ZXJfvbSpp3UzGJ9j MGYlNA11ERwzVOC8SAZoX5 9wIxSsX12hxqHvl3MeGo3n SXZ6sLEqNNLhcTxakTddsa DvTWI1aLotA7CmAVJhd1Ce ITKwX0Wds57uPXEhgnJpw7 MchSb0lSSrBPloBDUyJCUv lPIjDQCzP4XfH6qwoUXahF wgrp8mHPQnV8GeRQAmgn2= MICROSCOPIC DESCRIPTION h8nmvWWdJNEanOZ5EpKuGS (test code = 3371) Xay1uhv2SgnWPjiQWqZJcn bZHobpJhma70fSL9bH97OX 4wRXRtVcZ5SWArcmY2Wlk4 XXKeHEEekGWmP646y2acm3 jinxAbcRM7cQurSDKnCIIr YGahQDZgAyLfIF1QWrAOXR Kql2GuQBBfANhjXUI0 Gross assessment was [facility] performed at (test code [facility], Department = 2777) of Pathology, [address] [place] [address], Technical component was [facility] performed at ([facility], = 2778) Department of Pathology, [address] [place] [address], [address] [facility] was performed at ([facility], Department code = 2779) of Pathology, [address] [place] [address], [facility] [id number] 09:25:00 Test Item Value Reference Range Interpretation Comments Case Report (test code Surgical Pathology = 104) Report Case: [id number] Authorizing Provider: Laura Nguyen MD Collected: 09/26/2020 07:56 AM Ordering Location: [address] Med/Surg Received: 09/26/2020 08:55 AM Pathologist: Hilda Mack MD Specimens: A) - Soft Tissue, Debridement, LEFT FOOT BONE CLEAN MARGIN. B) - Bone, LEFT FOOT 5TH METATARSAL HEAD. DIAGNOSIS (test code = [id number] 3220) FuZzEwMzNcZnRuYmpcdWMx IHtccnRmMVxlcGljOTIwMl wfwsFqOFAmvIIeG5Jbciqd QNeqVV3mRW8sqDsedLXztX OuZKRjFxGfy6owh603pPTf h7riVJYEsdrrjNb0xYulL2 9fv4M8MzanR11dfNJdGSms bGFpblxmczIwIEEuIEJPTk YzVArJFvOqEa9YPYLALHRC GuJFQAPOKT2rMXKOV9VMIT hxnPZzGWStLT0mBy5NVNMQ TiFlShhLAw5ON26PTLIGQA AQGOQTQ3FDKKinFkZNMKAB VhDgDe5RCEKNRBSVHU3SJL VPTVlFTElUSVNccGFyXHBh vcTIGjLBR17QYCPQDRTSNT TZX1QiRVZKSV1EHRUMCOLY CRdnIEMDFTuiKR3AYQXBBL vSOjpsfMYfPCQpXM7pFGKI XKUfCT8SBGDBJf5EKFQgH2 IZAM0IZDCAMXTGNyUliVTy wYdyqnFuTMpre7TtAOoeNQ CtVQ5pqVieDNFsTQ8uFNOn Q1ibcV9qexk4EiBgNXDtZk W8PNRebjY3Las7SGVoHOln n0mmi3BxPSVaMFy4uMqnCb CvLUScj8kcjfJjEvYeGYOt WYFmANWuvCOgJ994s6qqd1 kqivDbgJY3ISVxTHG7RMhm ldFkqqA6EPbxkIXmPdN4VK tccmVkMFxncmVlbjBcYmx1 NQZgD270EDP3fXqye1bbZT D8MDUjGAJrTpXxZm6qkPMy M118KQUiDAUVRGZfrDd6LU MsvwXmsaWquMYSm644B477 y9vlYZBpmnZfoXlGweqzp9 nxV156RUHczLRvdqKoWmUw PIEjwSHpwYV4GHJvXZ2ozg ezZMkhUNwqDDQamjI3IHBn xFUsY5EpKYYvNS2orjkyLJ V3RDatDPIfIVW6HzCvGAGw n0Utdcc1NfEwrt9cgj16YQ H4m1FgtVtqRFT6QGI2FjZx Nb7kiBAyRMJwCT4sAnWepW JsAWPvjg46hFgqVHuzHTG3 QDJhxzGwh0Hzq7fpPhUgie ZpR9ugC2XoYZIpOLEfMMAf OiHlmxNfz6Ixi0NbkKAeeJ q5q8euQEQhRQRnqZyec4bg PPS3HMJhpTQqJ2cskQ2wUC AjWM6wfvgvx4anQGydJKtq KDTbnGY0iuD6JUGrdJYpF1 ImnJ7gIGVzAHczVTDupli5 TuAfHx0ivSBjsEzhWQtmHx twYWdlXHBnbmNvbnRccGdu ZGVjXHBsYWluXHBsYWluXG YwXGZzMjRccWxcbGFuZzEw MzNcaGljaFxmMVxkYmNoXG GoPRqiW7iyRiDpLcCxRms7 BWGfsIPnDAVeJeu6WBPbpQ DoGSMYmUkstU9nBIJtxJxt lE1sbRR3YXPqfgPhgUNDfV 9fCFKTwL0rTkYgUVIaXaN6 LTcxNjNccGFyfX0= CPT Code(s) (test code n0godMJyMQCisXV5KxOyED = 3357) Tde9eyf1ZvvXWhrELsZHut vXNznpPidz61ySH1xL12NC 2cTWGoNrD7IBGpilB4Xzg4 FKNxKUZnjOKdA679j1idt3 ubjhIpiEY1hXxwMWOuDUHz YWluXGZzMjAgODgzMDUgWD FjPWe3IpRaPYufNFSile5= CLINICAL HISTORY (test m7mwiKCbTQXlpCG9OiMtCH code = 3356) Vel9cir6XljWIsjNHtYWya bUZunxWjkj02zHQ3oS16ME 9gZHWqAfH4ZPRsnwX4Yyy5 IPVtSXWanBHjE087a8cwc0 hwppUivLZ5iMovSWPlKDXf TXtxAGPeHmUuCHmmZbY9yL WckCpkKFLwf6UqpIDlmALz b292XJAiv21vgLL9BEQxt3 x0sDTdeBIvXBVygrNrYOeb gCH4ccSbzCUirN4uqF8iXC GatCszPqPdm54unMQjz55v DFJdl1FzW0covUSjVDGolm Ljq2IjVo9pxSqppN8lgLEc hWXyIEUtcKefHMSxd8UoF0 UgXHBhcn0= SPECIMEN SOURCE (test j9kfkGKlZBWqmTC8EqBtAH code = 3377) Xhm0gjh5SykQNglEOdOKeb eXZruqMgup45cXQ1bB89OW 8fGDBgPgI0UNOtijR3Zge3 HVWpOHQypHMeB474y0mlj8 cszkPcpJO2xTcmZJJoZITa NHjiCYObAlLkEV2vK36bzE U3zGBknQKdMWOoHsQyEKEn RC89LpYFFkEEe76cILyqON J9 GROSS DESCRIPTION (test y4pgzSStAFZgzGI3KcUlLD code = 3366) Oti0fsa0IafYQzvAOkXDst uKTvpaPrpd08xTO1xK14FX 0aERUiNiX0ENArmnL3Xzf8 THLnCNYcsMDwU747l7axg9 bnniGdaXE8iXllLAEoZKPj VPmpPMDgKdXsFS6nVGsgIT ViNXNmfOZkEJmgFSQaB3Em qqQmPYhpTECfV51ovMJqdz FuVJlvnOfsFc2xmMTpvF1h iDLxIKgkEKP8fFZgCDZ4ds AmQVKeHC28ARptLS62uVEg UNMwIINtCWNuy87cnPJ2gJ KwdWBmLEOkXrOhVFYpXG85 He7uFVLqQ06ak2yceUTxb2 TxZHVmXCthEN68AKxbIO1t LHBtXTChXZytNL14OF5tOW Kzwl90lFg9FAQ2xTPjsMKh z8doM8uicSCqSj6dRMizzB OmiUVnWqFUuZEcqCN3TPBg xT7nCCZyAYO0ZWQwsMehqQ RmEAOzGFnvgSRwU5E9mF0d BeDxLBWwootxDDMcEw6hRE hlIHNwZWNpbWVuIGlzIHJl E7VaajZrHAuiQZAtW18ktY QbimOiVPqvzPahTk0xsDGc wA1jqUFbAYkrZIQ0cWAgRN Q0vmNtVDAfOS07FCilQQ55 bREqATHmLWVuKQOkJk6vHA RjSWk3BMWoozOsl8WcND9z NKBzGE45GVstWYL7IONaX2 3qFnReU05ittJur8ImSq1a JCA8mUApNIGkvUbueZlwmv LwCIC1kYucA6PhPRLgz3Wk FDJhM7Zlv53uZFCdasKwa0 UscIa5aGOcJQgbRIGaIGJb cDBdJBVoU1YbV1evqCAixT qzbm4qDPEkU4BgWMMnmk3= MICROSCOPIC DESCRIPTION g3ntdANuHDBniMB2SzSdHH (test code = 3371) Lyx4avw1BhxUSxeWHwXYdj hSDugpRlxx25rHV6yD37PH 5wRKItRkR1FRJszqR7Byr8 EAGpUWXsjGZiA487j0wgw2 mbfwAqgPB3pHlwWEUyCQBs MHqoNQFgSeViHQ7WLsSODI Qoq8YlPIVbKZfmBPV0 Gross assessment was [facility] performed at (test code Hospital, Department = 2777) of [facility], [address] [place] [address], [place] [address], Technical component was [facility] performed at (test [facility], = 2778) Department of Pathology, [address] [place] [address], Professional component [facility] was performed at ([facility], Department code = 2779) of Pathology, [address] [place] [address], [facility] [id number] 09:25:00 Test Item Value Reference Range Interpretation Comments Case Report (test code Surgical Pathology = 104) Report Case: [id number] Authorizing Provider: Laura Nguyen MD Collected: 09/26/2020 07:56 AM Ordering Location: [address] Med/Surg Received: 09/26/2020 08:55 AM Pathologist: Hilda Mack MD Specimens: A) - Soft Tissue, Debridement, LEFT FOOT BONE CLEAN MARGIN. B) - Bone, LEFT FOOT 5TH METATARSAL HEAD. DIAGNOSIS (test code = i8shqCFlKABbv1otORQvdG 3220) FuZzEwMzNcZnRuYmpcdWMx IHtccnRmMVxlcGljOTIwMl wsioFoQXSrrRKyS1Tgvjfe NYzbYZ7zKE3rfHyrkCHsqC ZfMNGxJdCdi7ewg163gUAi b7egKWSLpvaubLa6sZviG1 7mm5K8LtfkE67maZQpLBrw bGFpblxmczIwIEEuIEJPTk EdUXnCDxBqYb7QKPTTHICX GmUQQKBWIH1tAPPIK3KIUM rruMTlBQZnNS1dJl3ZEDTV AwSqGzqPNn3YO14ACKSTAY FZOVBDM3MEQLcsZqJJCLTT OxItXa3MFRUYJJMRVJ0DYW VPTVlFTElUSVNccGFyXHBh jbCZXwIOI90TAYBNPBJRDA AIV5PxBZSALV5EYTPSNLJO OPimASEJCPmgVZ6CWRNIZV qHQyqlxDUxOGQgGX9dCGMM SQDwEW9ZGJRRUf8TNTFyL9 VEWD2ETRUMKCZOYtUfrNMd cLzyfoVaNUuil4OkWQsyLG CyDZ6lyOrsXVSvXF4vQDJk P5slzJ8fgif1RtBoNMSoIa G7AHEnpfC0Hjx4TKUvFQif q3aiv8IwREZfFCl5uCrcHx CwFCKtj0cjdiMiTwRxESHb AWEnRTHhbYPpN554h9vzk6 izfxNspRG0LMQbDTN8JVux ppPhuzW3HKjmpMGmCnK1TJ tccmVkMFxncmVlbjBcYmx1 DGNhR152YPT7wDaxd0gtES Q3TIJvLWHdKmLqYz6nlWHt N479LDXzZQQPHCMegQe6LN EqiuWjqiAtmKETh403K146 g5ukVEYwapYzoUlOiulmi9 ecQ054AJQgtXPktsSsRvVi RLSxdFHaaOO7VJArGQ1pzr iwFXrkCXttZPRddfA9DXXr bNDyE1EuAPPjUV7waztbRR V4ZItsHYVtJVM4LdRkTROb g5Sarbq0McZbvx9rlo27FY X9l9MsbOcwALL1WUJ6EtZw Vc9sbIPaBDKdDW9aEbFejB NwZKAdkd99uHcrCLkqUIR3 NAVdynJku6Ngh5ptNyYfle ZiK7zhW5VtVTIiRZFgIAVz WsAkjpQyh6Qyz8VyxZKfoC y7q2pxQKHqNDSjvDfmu1fu CUL3PRBmuFZvM4lymB9sWZ SbUN1nwyvib4wcFBlmHMhc BVAkrMK8biY4REFhoPSbG7 GysN6lCSPzKCaaQBGvwtp0 ZfEqDe2ngQQupQajLScrLf twYWdlXHBnbmNvbnRccGdu ZGVjXHBsYWluXHBsYWluXG YwXGZzMjRccWxcbGFuZzEw MzNcaGljaFxmMVxkYmNoXG HfXErvC5ioLwFiKwXpZpd9 WLBazREzLLTrUsu6QYLcrY VrKDHZzAxhtN6pNHDzdXgs kV0axHV9SDYmmmIefBYRsV 0bVIJLmH9yQjAqCYMrMaM2 LTcxNjNccGFyfX0= CPT Code(s) (test code j8nxaNFvHXQmpZL6RlImAN = 3357) Rcz4cwv0RytVNcsUPmAShz rPAjnrLeax88vGD8aN48DO 2iVIHlDpG0CPCmrfZ4Qlb9 LLGeQKFimSOvD752c0wwy4 xlgcCbbXP5zRfmOESpFKRp YWluXGZzMjAgODgzMDUgWD UwFLt8KpSqEHqfAOCmsq6= CLINICAL HISTORY (test b5hlsOVoMQLypAG0EnKsJD code = 3356) Jgq6jtj8WiwHFusEIoGWjg cVRxbiDqro40uTR6gQ99BM 2wRFRpCpZ6YNFryyL6Mwn1 VHJlOMBuiKQpI070p3nni1 gybgAwhBY2qNmpWAPqIMNl OMuiCJWnHxFjWXckEnI9tJ GpgCwaBQEuv1VviZGpzAUf i617PBFqx87xdKZ8VFAwo1 n5zFEwtNKqOFJzriWwYZzv lBA0huSkfHYixC4rzG5cPX UklGpnQwLoa78anGDyd84y UZNhu3ZcE5otaDCuPOUgwz Pkj6HkPk0bvUtzdC5qtERl mVKmZRFolFbhQJFla6PnE9 UgXHBhcn0= SPECIMEN SOURCE (test g0gijRIwURXrtQU9DfWkSZ code = 3377) Dxa3mln0NqrJPhxVFyUWbc lIMnnoRaec26jLV1eS07DT 1pEJOsWfU9GCJhcdF5Yhc9 JBSrHOBbrUItV693d4nsc9 gxpbUfiTT0sOdgUMMvGOZv TRosGMZhYtHaQH5aV50psH O6hTVduVMuONBcPvMwZEJi AD63YqAPSpHEx84qTNztPB J9 GROSS DESCRIPTION (test m0nxzFMcMHVhaWH1OxIvDY code = 3366) Adb2rck8HqkYUwwKBoEYqq tYOepqJniq10eXE6sE07AG 1yZGOlHtT3EOTjxuZ6Ksi5 DFGwWXMsbUZbK285n8fnn7 ztnwCzcMH6uWpoGOFiGWFc KAokBPYmKfKmWC0fQPgkQP ZmPEWxjUAbDUhlIBOiO3Ni jmDuNNxnVWGeI55whMGomo JnMDcixPrxOn1wzYYhbP1i nTQhMEjtYTO6pUDzPCJ3rl QvXFQtGQ25TVxaBU67vPZc OXCiLNBcJZTck74ryFT3tH AvbHLlXMRhYmUqKZKbBK63 Rt4gKETiV95an1mulEYas9 JaHYIzEZojUU48DWtdUX2i HNDpMGPdTHzvLN44AM1oJO Gocy42cQt5PYE2oHWobZYr r9xdF8ohmPSkXx6dAGcekU JveRHfYcBEfTSraOE7MYFc fV5dWCHaEHR4CNPkyRqwpQ MyBAHmRFspvKXhX4J1tK9y DhWbPFYtavmpTQGtKh3fKY hlIHNwZWNpbWVuIGlzIHJl Z1MwlbGhAWzaBFObE84cfG XbmoLpPOcpgGhyZy1ouJWj sM9htKIvGHkbLFT6eVGdEE Q2uxByNKHsBE25GGhdPI52 hWItBVOmHQXzXNYcMx0wWY RcOJi6AAVyasNlc4BdNE4x XJGcXT95ZXjbYIB5KKUnC1 9qBgBvW34xpqNdd6YaKm5f LQS3hHUfVMWfxMwlyNmdst McFIP6jElqD5AuMIEgm5Qe CITzF0Aut28tEHRboiYqx5 ZgpPw4iMIsVBpuIABrBANp sKRtJGBfX2AyW7dxiVTlgM lnca1sDXOcY4YcSARrtz7= MICROSCOPIC DESCRIPTION a8jhiAVzDATbvKV4NuNdUO (test code = 3371) Wcq0jbw1DepNPgrUApTGoz qVQoluZyrg83qZR1gD99WU 7eIZQlWrY4CQPgsiB9Wuu8 LGPfREMmfCSgZ063y2ztm6 lqvaJwxVS4pVfgBRNbMTAt SHwnCXMlVbPsPB5DKrEXZV Wnk7UoLHYfGUbhEBS9 Gross assessment was . Titus's Grandy performed at ([facility], Department = 2777) of Pathology, [address] [place] [address], Technical component was [facility]'s performed at ([facility], = 2778) Department of Pathology, [address] [place] [address], Professional component . Titus's Grandy was performed at ([facility], Department code = 2779) of Pathology, [address] [place] [address], [facility] [id number] 09:25:00Surgical Pathology Report Case: [id number] Authorizing Provider: Laura Nguyen MD Collected: 09/26/2020 07:56 AM Ordering Location: [address] Med/Surg Received: 09/26/2020 08:55 AM Pathologist: Hilda Mack MD Specimens: A) - Soft Tissue, Debridement, LEFT FOOT BONE CLEAN MARGIN. B) - Bone, LEFT FOOT 5TH METATARSAL HEAD. A. BONE, LEFT FOOT CLEAN MARGIN, BIOPSY: - BONE AND FIBRO CONNECTIVE TISSUE, NEGATIVE FOR ACUTE OSTEOMYELITISB. BONE, LEFT FOOT 5TH METATARSAL HEAD, AMPUTATION: - ACUTE AND CHRONIC OSTEOMYELITIS Signing Pathologist Direct Phone Line: [phone] signed by Hilda Mack MD on 10/01/2020 at 9:25 [id number] X2, 93437 P5Geajxbod ulcer of lef t foot associated with diabetes mellitus due to [...] B. The specimen is received in a container with formalin labeled with two patient identifiers and "bone". It consists of a 1.5 x 1 x 1 cm fragment of bone with articular cartilage. Cross sectioned and submitted in B1 after decalcification. [place]/Shyanne-B. Performed. [facility],Department of Pathology, [address] [place] [address], [facility], Department of Pathology, [address] [place] [address], [facility], [facility] of [facility]ology, [address] [place] [address], PSP-Glucose [id number] 12:31:00 Test Item Value Reference Range Interpretation Comments POC-Glucose Meter (test 178 mg/dL 70-110 H : No tified RN/: code = 1538) TESTED AT [place] [address]: Business Banker/Techni cornelia ID = [id number] for GerryxochiltZofiasaúl t Lab Interpretation (test Abnormal code = 58677-2) [facility] [id number] 12:31:00 Test Item Value Reference Range Interpretation Comments POC-Glucose Meter (test 178 mg/dL 70-110 H : No tified RN/MD: code = 1538) TESTED AT [place] [address] 478: Business Banker/Techni cornelia ID = [id number] for Salvatore Ramírez t Lab Interpretation (test Abnormal code = 14303-5) [facility] [id number] 12:31:00 Test Item Value Reference Range Interpretation Comments POC-Glucose Meter (test 178 mg/dL 70-110 H : No tified RN/MD: code = 1538) TESTED AT [place] [address] 478: Business Banker/Techni cornelia ID = [id number] for Bassey, Salvatore t Lab Interpretation (test Abnormal code = 53709-5) [facility] [id number] 12:31:00 Test Item Value Reference Range Interpretation Comments POC-Glucose Meter (test 178 mg/dL 70-110 H : No tified RN/MD: code = 1538) TESTED AT [place] [address] 478: Business Banker/Techni cornelia ID = [id number] for Desiree, Salvatore t Lab Interpretation (test Abnormal code = 03272-4) [facility] [id number] 12:31:00 Test Item Value Reference Range Interpretation Comments POC-Glucose Meter (test 178 mg/dL 70-110 H : No tified RN/MD: code = 1538) TESTED AT [place] [address] 478: Business Banker/Techni cornelia ID = [id number] for Salvatore Ramírez t Lab Interpretation (test Abnormal code = 51150-6) [facility] [id number] 12:31:00 Test Item Value Reference Range Interpretation Comments POC-Glucose Meter (test 178 mg/dL 70-110 H : No tified RN/MD: code = 1538) TESTED AT [place] [address] 478: Business Banker/Techni cornelia ID = [id number] for Salvatore Ramírez Lab Interpretation (test Abnormal code = 23436-2) [facility] [id number] 12:31:00 Test Item Value Reference Range Interpretation Comments POC-Glucose Meter (test 178 mg/dL 70-110 H : No tified RN/MD: code = 1538) TESTED AT [facility] [address] [place] [address] 77 478: Business Banker/Techni cornelia ID = [id number] for Salvatore Ramírez Lab Interpretation (test Abnormal code = 31137-9) [facility]-GLUCOSE [id number] 12:31:00 Test Item Value Reference Range Interpretation Comments POC-GLUCOSE METER 178 mg/dL 70-110 H : Notified RN/MD: TESTED (BEAKER) (test code AT [facility] [address] [facility] = 1538) [facility] [address]: Business Banker/Techni cornelia ID = [id number] for Cony Osborne Basic Metabolic [id number] 06:00:00 Test Item Value Reference Range Interpretation Comments Sodium (test code = 138 meq/L 418-520 3693-2) Potassium (test code 4.3 meq/L 3.6-5.5 = 2823-3) Chloride (test code 101 meq/L 98-106 = 2075-0) CO2 (test code = 31 meq/L 20-29 H 2028-9) BUN (test code = 54 mg/dL 10-26 H 3094-0) Creatinine (test 2.16 mg/dL 0.5-1.2 H code = 2160-0) Glucose (test code = 177 mg/dL 70-110 H 2345-7) Calcium (test code = 8.9 mg/dL 8.5-10.5 04591-1) EGFR (test code = 33 mL/min/1.73 [place] [address]-9) m NOT ACCURATE CREATININE CLEARANCE IN PREDICTING GLOMERULAR FILTRATION RATE . ESTIMATED GFR I S NOT APPLICABLE FOR DIALYSIS PATIENTS. ISSA (test code = Business Banker ID - ISSA) JBERNOperator ID - JBERNOperator ID - JBERNOperator ID - JBERNOperator ID - JBERNOperator ID - JBERNOperator ID - JBERNOperator ID - JBERNOperator ID - JBERNOperator ID - JBERN Lab Interpretation Abnormal (test code = 17927-9) [facility] Metabolic [id number] 06:00:00 Test Item Value Reference Range Interpretation Comments Sodium (test code = 138 meq/L 193-452 6161-2) Potassium (test code 4.3 meq/L 3.6-5.5 = 2823-3) Chloride (test code 101 meq/L 98-106 = 2075-0) CO2 (test code = 31 meq/L 20-29 H 2027-9) BUN (test code = 54 mg/dL 10-26 H 3094-0) Creatinine (test 2.16 mg/dL 0.5-1.2 H code = 2160-0) Glucose (test code = 177 mg/dL 70-110 H 2345-7) Calcium (test code = 8.9 mg/dL 8.5-10.5 24576-3) EGFR (test code = 33 mL/min/1.[place] [address]-1) m NOT ACCURATE CREATININE CLEARANCE IN PREDICTING GLOMERULAR FILTRATION RATE . ESTIMATED GFR I S NOT APPLICABLE FOR DIALYSIS PATIENTS. ISAS (test code = Business Banker ID - ISSA) JBERNOperator ID - JBERNOperator ID - JBERNOperator ID - JBERNOperator ID - JBERNOperator ID - JBERNOperator ID - JBERNOperator ID - JBERNOperator ID - JBERNOperator ID - JBERN Lab Interpretation Abnormal (test code = 22286-6) [facility] Metabolic [id number] 06:00:00 Test Item Value Reference Range Interpretation Comments Sodium (test code = 138 meq/L 588-293 0554-2) Potassium (test code 4.3 meq/L 3.6-5.5 = 2823-3) Chloride (test code 101 meq/L 98-106 = 2075-0) CO2 (test code = 31 meq/L 20-29 H 2027-9) BUN (test code = 54 mg/dL 10-26 H 3094-0) Creatinine (test 2.16 mg/dL 0.5-1.2 H code = 2160-0) Glucose (test code = 177 mg/dL 70-110 H 2345-7) Calcium (test code = 8.9 mg/dL 8.5-10.5 86152-3) EGFR (test code = 33 mL/min/1.[place] [address]-7) m NOT ACCURATE CREATININE CLEARANCE IN PREDICTING GLOMERULAR FILTRATION RATE . ESTIMATED GFR I S NOT APPLICABLE FOR DIALYSIS PATIENTS. ISSA (test code = Business Banker ID - ISSA) JBERNOperator ID - JBERNOperator ID - JBERNOperator ID - JBERNOperator ID - JBERNOperator ID - JBERNOperator ID - JBERNOperator ID - JBERNOperator ID - JBERNOperator ID - JBERN Lab Interpretation Abnormal (test code = 15065-4) [facility] Metabolic [id number] 06:00:00 Test Item Value Reference Range Interpretation Comments Sodium (test code = 138 meq/L 280-340 1894-2) Potassium (test code 4.3 meq/L 3.6-5.5 = 2823-3) Chloride (test code 101 meq/L 98-106 = 2075-0) CO2 (test code = 31 meq/L 20-29 H 2028-9) BUN (test code = 54 mg/dL 10-26 H 3094-0) Creatinine (test 2.16 mg/dL 0.5-1.2 H code = 2160-0) Glucose (test code = 177 mg/dL 70-110 H 2345-7) Calcium (test code = 8.9 mg/dL 8.5-10.5 05397-1) EGFR (test code = 33 mL/min/1.[place] [address]-5) m NOT ACCURATE CREATININE CLEARANCE IN PREDICTING GLOMERULAR FILTRATION RATE . ESTIMATED GFR I S NOT APPLICABLE FOR DIALYSIS PATIENTS. ISSA (test code = Business Banker ID - ISSA) JBERNOperator ID - JBERNOperator ID - JBERNOperator ID - JBERNOperator ID - JBERNOperator ID - JBERNOperator ID - JBERNOperator ID - JBERNOperator ID - JBERNOperator ID - JBERN Lab Interpretation Abnormal (test code = 01289-4) [facility] Metabolic [id number] 06:00:00 Test Item Value Reference Range Interpretation Comments Sodium (test code = 138 meq/L 146-360 7358-2) Potassium (test code 4.3 meq/L 3.6-5.5 = 2823-3) Chloride (test code 101 meq/L 98-106 = 2075-0) CO2 (test code = 31 meq/L 20-29 H 2027-11) BUN (test code = 54 mg/dL 10-26 H 3094-0) Creatinine (test 2.16 mg/dL 0.50-1.20 H code = 2160-0) Glucose (test code = 177 mg/dL 70-110 H 2345-7) Calcium (test code = 8.9 mg/dL 8.5-10.5 68116-9) EGFR (test code = 33 mL/min/1.73 [place] [address]-1) m NOT ACCURATE CREATININE CLEARANCE IN PREDICTING GLOMERULAR FILTRATION RATE . ESTIMATED GFR I S NOT APPLICABLE FOR DIALYSIS PATIENTS. ISSA (test code = Business Banker ID - ISSA) JBERNOperator ID - JBERNOperator ID - JBERNOperator ID - JBERNOperator ID - JBERNOperator ID - JBERNOperator ID - JBERNOperator ID - JBERNOperator ID - JBERNOperator ID - JBERN Lab Interpretation Abnormal (test code = 17731-2) [facility] Metabolic [id number] 06:00:00 Test Item Value Reference Range Interpretation Comments Sodium (test code = 138 meq/L 337-385 1513-2) Potassium (test code 4.3 meq/L 3.6-5.5 = 2823-3) Chloride (test code 101 meq/L 98-106 = 2075-0) CO2 (test code = 31 meq/L 20-29 H 9) BUN (test code = 54 mg/dL 10-26 H 3094-0) Creatinine (test 2.16 mg/dL 0.50-1.20 H code = 2160-0) Glucose (test code = 177 mg/dL 70-110 H 2345-7) Calcium (test code = 8.9 mg/dL 8.5-10.5 60355-0) EGFR (test code = 33 mL/min/1.73 [place] [address]-6) m NOT ACCURATE CREATININE CLEARANCE IN PREDICTING GLOMERULAR FILTRATION RATE . ESTIMATED GFR I S NOT APPLICABLE FOR DIALYSIS PATIENTS. ISSA (test code = Business Banker ID - ISSA) JBERNOperator ID - JBERNOperator ID - JBERNOperator ID - JBERNOperator ID - JBERNOperator ID - JBERNOperator ID - JBERNOperator ID - JBERNOperator ID - JBERNOperator ID - JBERN Lab Interpretation Abnormal (test code = 58691-6) [facility] Metabolic [id number] 06:00:00 Test Item Value Reference Range Interpretation Comments Sodium (test code = 138 meq/L 515-291 2096-2) Potassium (test code 4.3 meq/L 3.6-5.5 = 2823-3) Chloride (test code 101 meq/L 98-106 = 2075-0) CO2 (test code = 31 meq/L 20-29 H 2028-9) BUN (test code = 54 mg/dL 10-26 H 3094-0) Creatinine (test 2.16 mg/dL 0.50-1.20 H code = 2160-0) Glucose (test code = 177 mg/dL 70-110 H 2345-7) Calcium (test code = 8.9 mg/dL 8.5-10.5 19441-9) EGFR (test code = 33 mL/min/1.73 [place] [address]-3) m NOT ACCURATE CREATININE CLEARANCE IN PREDICTING GLOMERULAR FILTRATION RATE . ESTIMATED GFR I S NOT APPLICABLE FOR DIALYSIS PATIENTS. ISSA (test code = Business Banker ID - ISSA) JBERNOperator ID - JBERNOperator ID - JBERNOperator ID - JBERNOperator ID - JBERNOperator ID - JBERNOperator ID - JBERNOperator ID - JBERNOperator ID - JBERNOperator ID - JBERN Lab Interpretation Abnormal (test code = 62145-5) [facility] METABOLIC [id number] 06:00:00 Test Item Value Reference Range Interpretation [...] S NOT APPLICABLE FOR DIALYSIS PATIEN TS. Business Banker ID - JBERNOperator ID - JBERNOperator ID - JBERNOperator ID - JBERNOperator ID - JBERNOperator ID - JBERNOperator ID - JBERNOperator ID - JBERNOperator ID - JBERNOperator ID - [id number] 05:42:00 Test Item Value Reference Range Interpretation Comments Magnesium (test code = 2.2 mg/dL 1.5-3 98974-9) ISSA (test code = ISSA) Business Banker ID - JBERNOperator ID - JBERNOperator ID - JBERNOperator ID - JBERN Lab Interpretation Normal (test code = 95540-6) [facility] Test Item Value Reference Range Interpretation Comments Magnesium (test code = 2.2 mg/dL 1.5-3 08274-4) ISSA (test code = ISSA) Business Banker ID - JBERNOperator ID - JBERNOperator ID - JBERNOperator ID - JBERN Lab Interpretation Normal (test code = 88094-8) [facility] Test Item Value Reference Range Interpretation Comments Magnesium (test code = 2.2 mg/dL 1.5-3 89143-1) ISSA (test code = ISSA) Business Banker ID - JBERNOperator ID - JBERNOperator ID - JBERNOperator ID - JBERN Lab Interpretation Normal (test code = 24865-5) [facility]2021-07-04 05:42:00 Test Item Value Reference Range Interpretation Comments Magnesium (test code = 2.2 mg/dL 1.5-3 52666-9) ISSA (test code = ISSA) Business Banker ID - JBERNOperator ID - JBERNOperator ID - JBERNOperator ID - JBERN Lab Interpretation Normal (test code = 72742-7) [facility]2021-07-04 05:42:00 Test Item Value Reference Range Interpretation Comments Magnesium (test code = 2.2 mg/dL 1.5-3.0 17884-3) ISSA (test code = ISSA) Business Banker ID - JBERNOperator ID - JBERNOperator ID - JBERNOperator ID - JBERN Lab Interpretation Normal (test code = 08560-8) [facility]2021-07-04 05:42:00 Test Item Value Reference Range Interpretation Comments Magnesium (test code = 2.2 mg/dL 1.5-3.0 88922-4) ISSA (test code = ISSA) Business Banker ID - JBERNOperator ID - JBERNOperator ID - JBERNOperator ID - JBERN Lab Interpretation Normal (test code = 83712-8) [facility]2021-07-04 05:42:00 Test Item Value Reference Range Interpretation Comments Magnesium (test code = 2.2 mg/dL 1.5-3.0 56337-8) ISSA (test code = ISSA) Business Banker ID - JBERNOperator ID - JBERNOperator ID - JBERNOperator ID - JBERN Lab Interpretation Normal (test code = 54936-9) [facility]2021-07-04 05:42:00 Test Item Value Reference Range Interpretation Comments MAGNESIUM (BEAKER) (test code = 2.2 mg/dL 1.5-3.0 627) Business Banker ID - JBERNOperator ID - JBERNOperator ID - JBERNOperator ID - JBERNCBC with platelet count + automated [id number] 05:17:00 Test Item Value Reference Range Interpretation Comments WBC (test code = 6690-2) 7.6 See_Comment [A utomated message] The system [employer] generated this result transmitted ref erence range: 4.0 - 10 .0 K/L. The refe rence range was not u sed to interpret this result as normal/abnor mal. RBC (test code = 789-8) 3.54 See_Comment L [Au tomated message] The system [employer] generated this result transmitted ref erence range: 4.20 - 5 .80 M/L. The refe rence range was not u sed to interpret this result as normal/abnor mal. MCHC (test code = 786-4) 31.0 See_Comment L [A utomated message] The system [employer] generated this result transmitted ref erence range: [...] See_Comment [Aut omated message] 777-3) The system [employer] generated this result transmitted ref erence range: 150 - 43 0 K/CU MM. The referen ce range was not u sed to interpret this result as normal/abnor mal. MPV (test code = 11.1 fL 6-11.5 81336-7) nRBC (test code = 413) 0 See_Comment [Aut omated message] The system [employer] generated this result transmitted ref erence range: [...] See_Comment [Aut omated message] 670) The system [employer] generated this result transmitted ref erence range: 1.80 - 8 .00 K/L. The refe rence range was not u sed to interpret this result as normal/abnor mal. # Lymphs (test code = 0.97 See_Comment L [Auto mated message] 414) The system [employer] generated this result transmitted ref erence range: 1.48 - 4 .50 K/L. The refe rence range was not u sed to interpret this result as normal/abnor mal. # Monos (test code = 0.74 See_Comment [Autom ated message] 415) The system [employer] generated this result transmitted ref erence range: 0.00 - 1 .30 K/L. The refe rence range was not u sed to interpret this result as normal/abnor mal. # Eos (test code = 416) 0.21 See_Comment [Au tomated message] The system [employer] generated this result transmitted ref erence range: 0.00 - 0 .50 K/L. The refe rence range was not u sed to interpret this result as normal/abnor mal. # Baso (test code = 417) 0.05 See_Comment [A utomated message] The system [employer] generated this result transmitted ref erence range: 0.00 - 0 .20 K/L. The refe rence range was not u sed to interpret this result as normal/abnor mal. Immature 1 % 0-0 H Granulocytes-Relative (test code = 2801) Lab Interpretation (test Abnormal code = 00896-3) [facility] with platelet count + automated [id number] 05:17:00 Test Item Value Reference Range Interpretation Comments WBC (test code = 6690-2) 7.6 See_Comment [A utomated message] The system [employer] generated this result transmitted ref erence range: 4.0 - 10 .0 K/L. The refe rence range was not u sed to interpret this result as normal/abnor mal. RBC (test code = 789-8) 3.54 See_Comment L [Au tomated message] The system [employer] generated this result transmitted ref erence range: 4.20 - 5 .80 M/L. The refe rence range was not u sed to interpret this result as normal/abnor mal. MCHC (test code = 786-4) 31.0 See_Comment L [A utomated message] The system [employer] generated this result transmitted ref erence range: [...] See_Comment [Aut omated message] 777-3) The system [employer] generated this result transmitted ref erence range: 150 - 43 0 K/CU MM. The referen ce range was not u sed to interpret this result as normal/abnor mal. MPV (test code = 11.1 fL 6-11.5 08974-9) nRBC (test code = 413) 0 See_Comment [Aut omated message] The system [employer] generated this result transmitted ref erence range: [...] See_Comment [Aut omated message] 670) The system [employer] generated this result transmitted ref erence range: 1.80 - 8 .00 K/L. The refe rence range was not u sed to interpret this result as normal/abnor mal. # Lymphs (test code = 0.97 See_Comment L [Auto mated message] 414) The system [employer] generated this result transmitted ref erence range: 1.48 - 4 .50 K/L. The refe rence range was not u sed to interpret this result as normal/abnor mal. # Monos (test code = 0.74 See_Comment [Autom ated message] 415) The system [employer] generated this result transmitted ref erence range: 0.00 - 1 .30 K/L. The refe rence range was not u sed to interpret this result as normal/abnor mal. # Eos (test code = 416) 0.21 See_Comment [Au tomated message] The system [employer] generated this result transmitted ref erence range: 0.00 - 0 .50 K/L. The refe rence range was not u sed to interpret this result as normal/abnor mal. # Baso (test code = 417) 0.05 See_Comment [A utomated message] The system [employer] generated this result transmitted ref erence range: 0.00 - 0 .20 K/L. The refe rence range was not u sed to interpret this result as normal/abnor mal. Immature 1 % 0-0 H Granulocytes-Relative (test code = 2801) Lab Interpretation (test Abnormal code = 71318-2) [facility] with platelet count + automated [id number] 05:17:00 Test Item Value Reference Range Interpretation Comments WBC (test code = 6690-2) 7.6 See_Comment [A utomated message] The system [employer] generated this result transmitted ref erence range: 4.0 - 10 .0 K/L. The refe rence range was not u sed to interpret this result as normal/abnor mal. RBC (test code = 789-8) 3.54 See_Comment L [Au tomated message] The system [employer] generated this result transmitted ref erence range: 4.20 - 5 .80 M/L. The refe rence range was not u sed to interpret this result as normal/abnor mal. MCHC (test code = 786-4) 31.0 See_Comment L [A utomated message] The system [employer] generated this result transmitted ref erence range: [...] See_Comment [Aut omated message] 777-3) The system [employer] generated this result transmitted ref erence range: 150 - 43 0 K/CU MM. The referen ce range was not u sed to interpret this result as normal/abnor mal. MPV (test code = 11.1 fL 6-11.5 10184-0) nRBC (test code = 413) 0 See_Comment [Aut omated message] The system [employer] generated this result transmitted ref erence range: [...] See_Comment [Aut omated message] 670) The system [employer] generated this result transmitted ref erence range: 1.80 - 8 .00 K/L. The refe rence range was not u sed to interpret this result as normal/abnor mal. # Lymphs (test code = 0.97 See_Comment L [Auto mated message] 414) The system [employer] generated this result transmitted ref erence range: 1.48 - 4 .50 K/L. The refe rence range was not u sed to interpret this result as normal/abnor mal. # Monos (test code = 0.74 See_Comment [Autom ated message] 415) The system [employer] generated this result transmitted ref erence range: 0.00 - 1 .30 K/L. The refe rence range was not u sed to interpret this result as normal/abnor mal. # Eos (test code = 416) 0.21 See_Comment [Au tomated message] The system [employer] generated this result transmitted ref erence range: 0.00 - 0 .50 K/L. The refe rence range was not u sed to interpret this result as normal/abnor mal. # Baso (test code = 417) 0.05 See_Comment [A utomated message] The system [employer] generated this result transmitted ref erence range: 0.00 - 0 .20 K/L. The refe rence range was not u sed to interpret this result as normal/abnor mal. Immature 1 % 0-0 H Granulocytes-Relative (test code = 2801) Lab Interpretation (test Abnormal code = 25482-3) [facility] with platelet count + automated [id number] 05:17:00 Test Item Value Reference Range Interpretation Comments WBC (test code = 6690-2) 7.6 See_Comment [A utomated message] The system [employer] generated this result transmitted ref erence range: 4.0 - 10 .0 K/L. The refe rence range was not u sed to interpret this result as normal/abnor mal. RBC (test code = 789-8) 3.54 See_Comment L [Au tomated message] The system [employer] generated this result transmitted ref erence range: 4.20 - 5 .80 M/L. The refe rence range was not u sed to interpret this result as normal/abnor mal. MCHC (test code = 786-4) 31.0 See_Comment L [A utomated message] The system [employer] generated this result transmitted ref erence range: [...] code = 230 See_Comment [Aut omated message] 957-3) The system [employer] generated this result transmitted ref erence range: 150 - 43 0 K/CU MM. The referen ce range was not u sed to interpret this result as normal/abnor mal. MPV (test code = 11.1 fL 6-11.5 65871-0) nRBC (test code = 413) 0 See_Comment [Aut omated message] The system [employer] generated this result transmitted ref erence range: [...] See_Comment [Aut omated message] 670) The system [employer] generated this result transmitted ref erence range: 1.80 - 8 .00 K/L. The refe rence range was not u sed to interpret this result as normal/abnor mal. # Lymphs (test code = 0.97 See_Comment L [Auto mated message] 414) The system [employer] generated this result transmitted ref erence range: 1.48 - 4 .50 K/L. The refe rence range was not u sed to interpret this result as normal/abnor mal. # Monos (test code = 0.74 See_Comment [Autom ated message] 415) The system [employer] generated this result transmitted ref erence range: 0.00 - 1 .30 K/L. The refe rence range was not u sed to interpret this result as normal/abnor mal. # Eos (test code = 416) 0.21 See_Comment [Au tomated message] The system [employer] generated this result transmitted ref erence range: 0.00 - 0 .50 K/L. The refe rence range was not u sed to interpret this result as normal/abnor mal. # Baso (test code = 417) 0.05 See_Comment [A utomated message] The system [employer] generated this result transmitted ref erence range: 0.00 - 0 .20 K/L. The refe rence range was not u sed to interpret this result as normal/abnor mal. Immature 1 % 0-0 H Granulocytes-Relative (test code = 2801) Lab Interpretation (test Abnormal code = 28500-1) [facility] with platelet count + automated [id number] 05:17:00 Test Item Value Reference Range Interpretation Comments WBC (test code = 6690-2) 7.6 See_Comment [A utomated message] The system [employer] generated this result transmitted ref erence range: 4.0 - 10 .0 K/L. The refe rence range was not u sed to interpret this result as normal/abnor mal. RBC (test code = 789-8) 3.54 See_Comment L [Au tomated message] The system [employer] generated this result transmitted ref erence range: 4.20 - 5 .80 M/L. The refe rence range was not u sed to interpret this result as normal/abnor mal. MCHC (test code = 786-4) 31.0 See_Comment L [A utomated message] The system [employer] generated this result transmitted ref erence range: [...] See_Comment [Aut omated message] 777-3) The system [employer] generated this result transmitted ref erence range: 150 - 43 0 K/CU MM. The referen ce range was not u sed to interpret this result as normal/abnor mal. MPV (test code = 11.1 fL 6.0-11.5 69722-3) nRBC (test code = 413) 0 See_Comment [Aut omated message] The system [employer] generated this result transmitted ref erence range: [...] See_Comment [Aut omated message] 670) The system [employer] generated this result transmitted ref erence range: 1.80 - 8 .00 K/L. The refe rence range was not u sed to interpret this result as normal/abnor mal. # Lymphs (test code = 0.97 See_Comment L [Auto mated message] 414) The system [employer] generated this result transmitted ref erence range: 1.48 - 4 .50 K/L. The refe rence range was not u sed to interpret this result as normal/abnor mal. # Monos (test code = 0.74 See_Comment [Autom ated message] 415) The system [employer] generated this result transmitted ref erence range: 0.00 - 1 .30 K/L. The refe rence range was not u sed to interpret this result as normal/abnor mal. # Eos (test code = 416) 0.21 See_Comment [Au tomated message] The system [employer] generated this result transmitted ref erence range: 0.00 - 0 .50 K/L. The refe rence range was not u sed to interpret this result as normal/abnor mal. # Baso (test code = 417) 0.05 See_Comment [A utomated message] The system [employer] generated this result transmitted ref erence range: 0.00 - 0 .20 K/L. The refe rence range was not u sed to interpret this result as normal/abnor mal. Immature 1 % 0-0 H Granulocytes-Relative (test code = 2801) Lab Interpretation (test Abnormal code = 92787-9) [facility] with platelet count + automated [id number] 05:17:00 Test Item Value Reference Range Interpretation Comments WBC (test code = 6690-2) 7.6 See_Comment [A utomated message] The system [employer] generated this result transmitted ref erence range: 4.0 - 10 .0 K/L. The refe rence range was not u sed to interpret this result as normal/abnor mal. RBC (test code = 789-8) 3.54 See_Comment L [Au tomated message] The system [employer] generated this result transmitted ref erence range: 4.20 - 5 .80 M/L. The refe rence range was not u sed to interpret this result as normal/abnor mal. MCHC (test code = 786-4) 31.0 See_Comment L [A utomated message] The system [employer] generated this result transmitted ref erence range: [...] See_Comment [Aut omated message] 777-3) The system [employer] generated this result transmitted ref erence range: 150 - 43 0 K/CU MM. The referen ce range was not u sed to interpret this result as normal/abnor mal. MPV (test code = 11.1 fL 6.0-11.5 86199-3) nRBC (test code = 413) 0 See_Comment [Aut omated message] The system [employer] generated this result transmitted ref erence range: [...] See_Comment [Aut omated message] 670) The system [employer] generated this result transmitted ref erence range: 1.80 - 8 .00 K/L. The refe rence range was not u sed to interpret this result as normal/abnor mal. # Lymphs (test code = 0.97 See_Comment L [Auto mated message] 414) The system [employer] generated this result transmitted ref erence range: 1.48 - 4 .50 K/L. The refe rence range was not u sed to interpret this result as normal/abnor mal. # Monos (test code = 0.74 See_Comment [Autom ated message] 415) The system [employer] generated this result transmitted ref erence range: 0.00 - 1 .30 K/L. The refe rence range was not u sed to interpret this result as normal/abnor mal. # Eos (test code = 416) 0.21 See_Comment [Au tomated message] The system [employer] generated this result transmitted ref erence range: 0.00 - 0 .50 K/L. The refe rence range was not u sed to interpret this result as normal/abnor mal. # Baso (test code = 417) 0.05 See_Comment [A utomated message] The system [employer] generated this result transmitted ref erence range: 0.00 - 0 .20 K/L. The refe rence range was not u sed to interpret this result as normal/abnor mal. Immature 1 % 0-0 H Granulocytes-Relative (test code = 2801) Lab Interpretation (test Abnormal code = 22424-8) [facility] with platelet count + automated [id number] 05:17:00 Test Item Value Reference Range Interpretation Comments WBC (test code = 6690-2) 7.6 See_Comment [A utomated message] The system [employer] generated this result transmitted ref erence range: 4.0 - 10 .0 K/L. The refe rence range was not u sed to interpret this result as normal/abnor mal. RBC (test code = 789-8) 3.54 See_Comment L [Au tomated message] The system [employer] generated this result transmitted ref erence range: 4.20 - 5 .80 M/L. The refe rence range was not u sed to interpret this result as normal/abnor mal. MCHC (test code = 786-4) 31.0 See_Comment L [A utomated message] The system [employer] generated this result transmitted ref erence range: [...] See_Comment [Aut omated message] 777-3) The system [employer] generated this result transmitted ref erence range: 150 - 43 0 K/CU MM. The referen ce range was not u sed to interpret this result as normal/abnor mal. MPV (test code = 11.1 fL 6.0-11.5 87301-7) nRBC (test code = 413) 0 See_Comment [Aut omated message] The system [employer] generated this result transmitted ref erence range: [...] See_Comment [Aut omated message] 670) The system [employer] generated this result transmitted ref erence range: 1.80 - 8 .00 K/L. The refe rence range was not u sed to interpret this result as normal/abnor mal. # Lymphs (test code = 0.97 See_Comment L [Auto mated message] 414) The system [employer] generated this result transmitted ref erence range: 1.48 - 4 .50 K/L. The refe rence range was not u sed to interpret this result as normal/abnor mal. # Monos (test code = 0.74 See_Comment [Autom ated message] 415) The system [employer] generated this result transmitted ref erence range: 0.00 - 1 .30 K/L. The refe rence range was not u sed to interpret this result as normal/abnor mal. # Eos (test code = 416) 0.21 See_Comment [Au tomated message] The system [employer] generated this result transmitted ref erence range: 0.00 - 0 .50 K/L. The refe rence range was not u sed to interpret this result as normal/abnor mal. # Baso (test code = 417) 0.05 See_Comment [A utomated message] The system [employer] generated this result transmitted ref erence range: 0.00 - 0 .20 K/L. The refe rence range was not u sed to interpret this result as normal/abnor mal. Immature 1 % 0-0 H Granulocytes-Relative (test code = 2801) Lab Interpretation (test Abnormal code = 46687-4) [facility] W/PLT COUNT & AUTO [id number] 05:17:00 Test Item Value Reference Range Interpretation [...] PERCENT (BEAKER) (test code = 2801) POCT-GLUCOSE [id number] 13:00:00 Test Item Value Reference Range Interpretation Comments POC-GLUCOSE METER 114 mg/dL 70-110 H : Notified RN/MD: TESTED (BEAKER) (test code AT [address] = 1538) [facility] [address]: Business Banker/Techni cornelia ID = [id number] for Cony Osborne ANAEROBIC [id number] 09:52:00 Test Item Value Reference Range Interpretation Comments CULTURE (BEAKER) (test No anaerobes isolated code = 1095) Anaerobic [id number] 09:51:00 Test Item Value Reference Range Interpretation Comments Result (test code = No anaerobes isolated 6463-4) [facility] [id number] 09:51:00 Test Item Value Reference Range Interpretation Comments Result (test code = No anaerobes isolated 6463-4) [facility] [id number] 09:51:00 Test Item Value Reference Range Interpretation Comments Result (test code = No anaerobes isolated 6463-4) [facility] [id number] 09:51:00 Test Item Value Reference Range Interpretation Comments Result (test code = No anaerobes isolated 6463-4) [facility] [id number] 09:51:00 Test Item Value Reference Range Interpretation Comments Result (test code = No anaerobes isolated 6463-4) [facility] [id number] 09:51:00 Test Item Value Reference Range Interpretation Comments Result (test code = No anaerobes isolated 6463-4) [facility] [id number] 09:51:00 Test Item Value Reference Range Interpretation Comments Result (test code = No anaerobes isolated 6463-4) [facility] [id number] 09:51:00 Test Item Value Reference Range Interpretation Comments CULTURE (BEAKER) (test No anaerobes isolated code = 1095) BASIC METABOLIC [id number] 06:34:00 Test Item Value Reference Range Interpretation [...] S NOT APPLICABLE FOR DIALYSIS PATIEN TS. Business Banker ID - [id number] ID - [id number] ID - [id number] ID - [id number] ID - [id number] ID - [id number] ID - [id number] ID - [id number] ID - [id number] ID - [id number]- GLUCOSE [id number] 06:13:00 Test Item Value Reference Range Interpretation Comments POC-GLUCOSE METER 95 mg/dL 70-110 : TESTED A T [address] 1317 (BEAKER) (test code = [address], 1538) [facility] [place] [address]: Business Banker/Techni cornelia ID = [id number] for Lisa tazAgustina [id number] 05:36:00 Test Item Value Reference Range Interpretation Comments MAGNESIUM (BEAKER) (test code = 1.9 mg/dL 1.5-3.0 627) Business Banker ID - [id number] ID - [id number] ID - [id number] ID - [id number] W/PLT COUNT & AUTO [id number] 05:21:00 Test Item Value Reference Range Interpretation [...] PERCENT (BEAKER) (test code = 2801) POCT-GLUCOSE [id number] 21:10:00 Test Item Value Reference Range Interpretation Comments POC-GLUCOSE METER 137 mg/dL 70-110 H : TESTED A T [address] (BEAKER) (test [facility] = 1538) [place] [address]: Business Banker/Techni cornelia ID = [id number] for Agustina Harrison POCT-GLUCOSE [id number] 19:19:00 Test Item Value Reference Range Interpretation Comments POC-GLUCOSE METER 119 mg/dL 70-110 H : TESTED A T [address] (BEAKER) (test code [address], = 1538) [place] [id number]: Business Banker/Techni cornelia ID = [id number] for Heidy Martin POCT-GLUCOSE [id number] 12:43:00 Test Item Value Reference Range Interpretation Comments POC-GLUCOSE METER 126 mg/dL 70-110 H : TESTED A T [address] (BEAKER) (test code [address], = 1538) [facility] [address]: Business Banker/Techni cornelia ID = [id number] for Heidy Martin POCT-GLUCOSE [id number] 06:47:00 Test Item Value Reference Range Interpretation Comments POC-GLUCOSE METER 132 mg/dL 70-110 H : TESTED A T [address] (BEAKER) (test code [address], = 1538) [place] [address]: Business Banker/Techni cornelia ID = [id number] for Zackary Bustamante si BASIC METABOLIC [id number] 04:59:00 Test Item Value Reference Range Interpretation [...] S NOT APPLICABLE FOR DIALYSIS PATIEN TS. Business Banker ID - [id number] ID - [id number] ID - [id number] ID - [id number] ID - [id number] ID - [id number] ID - [id number] ID - [id number] ID - [id number] ID - [id number] 04:44:00 Test Item Value Reference Range Interpretation Comments MAGNESIUM (BEAKER) (test code = 2.0 mg/dL 1.5-3.0 627) Business Banker ID - ersj84Cmfzrtku ID - [id number] ID - [id number] ID - [id number] CBC W/PLT COUNT & AUTO [id number] 04:30:00 Test Item Value Reference Range Interpretation [...] PERCENT (BEAKER) (test code = 2801) POCT-GLUCOSE [id number] 23:23:00 Test Item Value Reference Range Interpretation Comments POC-GLUCOSE METER 156 mg/dL 70-110 H : TESTED A T [address] (BEAKER) (test [facility] [address] [facility] = 1538) [place] [id number]: Business Banker/Techni cornelia ID = [id number] for Dianna siYfno POCT-GLUCOSE [id number] 18:35:00 Test Item Value Reference Range Interpretation Comments POC-GLUCOSE METER 137 mg/dL 70-110 H : TESTED A T [address] (BEAKER) (test code [address] [facility] = 1538) [place] [address]: Business Banker/Techni cornelia ID = [id number] for Adrienne r, Heidy POCT-GLUCOSE [id number] 13:42:00 Test Item Value Reference Range Interpretation Comments POC-GLUCOSE METER 109 mg/dL 70-110 : TESTED A T [address] (BEAKER) (test code [address] [facility] = 1538) [place] [address]: Business Banker/Techni cornelia ID = [id number] for Adrienne r, Heidy RAD, FOOT, MIN 3 VIEWS, [id number] 09:06:00Reason for exam:->s/p 5th metatarsal head resection [facility] 1975 Sex: MFINAL REPORT History: Fifth metatarsal head resection. FINDINGS: Left foot series,two views: Compared with September 23, 2020, post surgical changes are seen consistent with resection of the distal aspect of the fifth metatarsal. Other visible bones remain unremarkable. Joint spaces are intact. Soft tissues surrounding the surgical site are swollen. Soft tissues are otherwise unremarkable. IMPRESSION: 1. Unremarkable postoperative left foot. Signed: Jerad Gleason Verified Date/Time: 09/26/2020 09:06:00 Reading Location: [facility] Radiology Reading Room XR foot 3 views [id number] 09:06:00Interface, External Ris In - 09/26/2020 9:08 [...] Gleason Verified Date/Time: 09/26/2020 09:06:00 Reading Location: [facility] [id number] 09:06:00Interface, External Ris In - 09/26/2020 9:08 [...] Gleason Verified Date/Time: 09/26/2020 09:06:00 Reading Location: [facility] [id number] 09:06:00Interface, External Ris In - 09/26/2020 9:08 [...] Gleason Verified Date/Time: 09/26/2020 09:06:00 Reading Location: [facility] [id number] 09:06:00Interface, External Ris In - 09/26/2020 9:08 [...] Gleason Verified Date/Time: 09/26/2020 09:06:00 Reading Location: [facility] Radiology [facility] [id number] 08:47:00 Test Item Value Reference Range Interpretation Comments POC-GLUCOSE METER 134 mg/dL 70-110 H : Notified RN/MD: TESTED (CECILIO) (test code AT [address] = 1538) [place] [facility] [address]: Business Banker/Techni cornelia ID = [id number] for Marzena Ponce BASIC METABOLIC [id number] 06:13:00 Test Item Value Reference Range Interpretation [...] S NOT APPLICABLE FOR DIALYSIS PATIEN TS. Business Banker ID - [id number] ID - [id number] ID - [id number] ID - [id number] ID - [id number] ID - upma69Ttpjcyah ID - vinc39Slaqvkdd ID - zrrm09Tfhguikx ID - getm64Bwzzfyxw ID - [id number] 06:08:00 Test Item Value Reference Range Interpretation Comments MAGNESIUM (BEAKER) (test code = 2.2 mg/dL 1.5-3.0 627) Business Banker ID - [id number] ID - [id number] ID - [id number] ID - [id number] B-type Natriuretic Factor (BNP)2020-09-26 06:01:00 Test Item Value Reference Range Interpretation Comments BNP (test code = 47067-4) 929 pg/mL 0-100 H ISSA (test code = ISSA) Business Banker ID - [id number] Lab Interpretation (test Abnormal code = 40907-7) [facility]2020-09-26 06:01:00 Test Item Value Reference Range Interpretation Comments BNP (test code = 07537-6) 929 pg/mL 0-100 H ISSA (test code = ISSA) Business Banker ID - [id number] Lab Interpretation (test Abnormal code = 92719-9) [facility] ([facility]2020-09-26 06:01:00 Test Item Value Reference Range Interpretation Comments BNP (test code = 56803-9) 929 pg/mL 0-100 H ISSA (test code = ISSA) Business Banker ID - [id number] Lab Interpretation (test Abnormal code = 19315-8) [facility] ([facility])2020-09-26 06:01:00 Test Item Value Reference Range Interpretation Comments BNP (test code = 28716-6) 929 pg/mL 0-100 H ISSA (test code = ISSA) Business Banker ID - [id number] Lab Interpretation (test Abnormal code = 38745-4) [facility] (BNP)2020-09-26 06:01:00 Test Item Value Reference Range Interpretation Comments BNP (test code = 14593-7) 929 pg/mL 0-100 H ISSA (test code = ISSA) Business Banker ID - [id number] Lab Interpretation (test Abnormal code = 40672-9) [facility] (BNP)2020-09-26 06:01:00 Test Item Value Reference Range Interpretation Comments BNP (test code = 01174-9) 929 pg/mL 0-100 H ISSA (test code = ISSA) Business Banker ID - [id number] Lab Interpretation (test Abnormal code = 78553-9) [facility] (BNP)2020-09-26 06:01:00 Test Item Value Reference Range Interpretation Comments BNP (test code = 91263-4) 929 pg/mL 0-100 H ISSA (test code = ISSA) Business Banker ID - [id number] Lab Interpretation (test Abnormal code = 39315-3) [facility] NATRI[facility] FACTOR (BNP)2020-09-26 06:01:00 Test Item Value Reference Range Interpretation Comments B-TYPE NATRIURETIC PEPTIDE (BEAKER) 929 pg/mL 0-100 H (test code = 700) Business Banker ID - [id number] W/PLT COUNT & AUTO [id number] 05:44:00 Test Item Value Reference Range Interpretation [...] PERCENT (BEAKER) (test code = 2801) POCT-GLUCOSE [id number] 21:22:00 Test Item Value Reference Range Interpretation Comments POC-GLUCOSE METER 162 mg/dL 70-110 H : TESTED A T [address]SL 1317 (BEAKER) (test code [facility], = 1538) [place] [address]: Business Banker/Techni cornelia ID = [id number] for Orlandobecky mcghee Agustina POCT-GLUCOSE [id number] 16:27:00 Test Item Value Reference Range Interpretation Comments POC-GLUCOSE METER 151 mg/dL 70-110 H : TESTED A T [address]17 (BEAKER) (test code [facility], = 1538) [place] [address]: Business Banker/Techni cornelia ID = [id number] for Judy borden, Ayinor POCT-GLUCOSE [id number] 11:32:00 Test Item Value Reference Range Interpretation Comments POC-GLUCOSE METER 104 mg/dL 70-110 : TESTED A T [address]SL 1317 (BEAKER) ([facility] = 1538) [place] [address]: Business Banker/Techni cornelia ID = [id number] for Judy suha, Ayinor POCT-GLUCOSE [id number] 06:17:00 Test Item Value Reference Range Interpretation Comments POC-GLUCOSE METER 112 mg/dL 70-110 H : TESTED A T [address]SL [address]17 (BEAKER) (test code [facility], = 1538) [place] [address]: Business Banker/Techni cornelia ID = [id number] for Lani Kat [id number] 05:39:00 Test Item Value Reference Range Interpretation Comments MAGNESIUM (BEAKER) (test code = 1.9 mg/dL 1.5-3.0 627) Business Banker ID - LITOOperator ID - LITOOperator ID - LITOOperator ID - LITOBASIC METABOLIC [id number] 05:38:00 Test Item Value Reference Range Interpretation [...] S NOT APPLICABLE FOR DIALYSIS PATIEN TS. Business Banker ID - LITOOperator ID - LITOOperator ID - LITOOperator ID - LITOOperator ID - LITOOperator ID - LITOOperator ID - LITOOperator ID - LITOOperator ID - LITOOperator ID - LITOCBC W/PLT COUNT & AUTO [id number] 05:20:00 Test Item Value Reference Range Interpretation [...] PERCENT (BEAKER) (test code = 2801) POCT-GLUCOSE [id number] 20:48:00 Test Item Value Reference Range Interpretation Comments POC-GLUCOSE METER 167 mg/dL 70-110 H : TESTED A T [address] (BEAKER) (test code [facility] [address], = 1538) [place] [address]: Business Banker/Techni cornelia ID = [id number] for Lani Kat POCT-GLUCOSE [id number] 17:48:00 Test Item Value Reference Range Interpretation Comments POC-GLUCOSE METER 260 mg/dL 70-110 H : TESTED A T [address] (BEAKER) (test code [address], = 1538) [place] [address]: Business Banker/Techni cornelia ID = [id number] for Heidy Martin ARTERIAL DOPPLER LEGS, [id number] 13:42:00Reason for exam:- >[facility] 1975 Sex: MFINAL REPORT BILATERAL LOWER EXTREMITY ARTERIAL DOPPLER EVALUATION History provided: Osteomyelitis, diabetes Grayscale, color Doppler, and spectral wave form analysis were performed. Evaluation of the right lower extremity shows triphasic flow at the common femoral artery, but only monophasic flow beyond this point from the superficial femoral artery to the foot. Moderate flow accele ration is identified in the proximal superficial femoral artery indicating stenosis. Poor flow velocities are seen distal to this level, indicating diffuse vascular disease. Evaluation of the left lower extremity shows triphasic waveforms from the common femoral artery through the distal superficial femoral artery, but only monophasic flow from the popliteal artery through the foot. Flow accelerationis identified within the proximal and mid superficial femoral artery indicating stenosis. Poor flow velocities throughout the left calf. Vascular calcification is evident consistent with known diabetesmellitus. IMPRESSION: Abnormal examination consistent with diffuse peripheral vascular disease. Signed: Jerome Ortiz MDReport Verified Date/Time: 09/24/2020 13:42:37 Reading Location: [facility] Radiology Reading Room Arterial Doppler Legs [id number] 13:42:00 Interface, External Ris In - 09/24/2020 1:44 PM CDTFINAL REPORT BILATERAL LOWEREXTREMITY ARTERIAL DOPPLER EVALUATION History provided: Osteomyelitis, diabetes [...] velocities are seen distal to this level, indicatingdiffuse vascular disease. Evaluation of the left lower extremity shows triphasic waveforms from the common femoral artery through the distal superficial femoral artery, but only monophasic flow from the popliteal artery through the foot. Flow acceleration is identified within the proximal and mid superficial femoral artery indicating stenosis. Poor flow velocities throughout the left calf. Vascular calcification is evident consistent with known diabetes mellitus. IMPRESSION: Abnormal examination consistent with diffuse peripheral vascular disease. Signed: Jerome Ortiz Verified Date/Time: 09/24/2020 13:42:37 Reading Location: [facility]iology [facility] [id number] 13:42:00Interface, External Ris In - 09/24/2020 1:44 PM CDTFINAL REPORT BILATERAL LOWEREXTREMITY ARTERIAL DOPPLER EVALUATION History provided: Osteomyelitis, diabetes [...] velocities are seen distal to this level, indicatingdiffuse vascular disease. Evaluation of the left lower extremity shows triphasic waveforms from the common femoral artery through the distal superficial femoral artery, but only monophasic flow from the popliteal artery through the foot. Flow acceleration is identified within the proximal and mid superficial femoral artery indicating stenosis. Poor flow velocities throughout the left calf. Vascular calcification is evident consistent with known diabetes mellitus. IMPRESSION: Abnormal examination consistent with diffuse peripheral vascular disease. Signed: Jerome Ortiz Verified Date/Time: 09/24/2020 13:42:37 Reading Location: [facility] Radiology Reading [facility] Center[facility] Legs [id number] 13:42:00Interface, External Ris In - 09/24/2020 1:44 PM CDTFINAL REPORT BILATERAL LOWEREXTREMITY ARTERIAL DOPPLER EVALUATION History provided: Osteomyelitis, diabetes [...] velocities are seen distal to this level, indicatingdiffuse vascular disease. Evaluation of the left lower extremity shows triphasic waveforms from the common femoral artery through the distal superficial femoral artery, but only monophasic flow from the popliteal artery through the foot. Flow acceleration is identified within the proximal and mid superficial femoral artery indicating stenosis. Poor flow velocities throughout the left calf. Vascular calcification is evident consistent with known diabetes mellitus. IMPRESSION: Abnormal examination consistent with diffuse peripheral vascular disease. Signed: Jerome Ortiz Verified Date/Time: 09/24/2020 13:42:37 Reading Location: [facility] Radiology Reading [facility] Center[facility] Legs [id number] 13:42:00Interface, External Ris In - 09/24/2020 1:44 PM CDTFINAL REPORT BILATERAL LOWEREXTREMITY ARTERIAL DOPPLER EVALUATION History provided: Osteomyelitis, diabetes [...] velocities are seen distal to this level, indicatingdiffuse vascular disease. Evaluation of the left lower extremity shows triphasic waveforms from the common femoral artery through the distal superficial femoral artery, but only monophasic flow from the popliteal artery through the foot. Flow acceleration is identified within the proximal and mid superficial femoral artery indicating stenosis. Poor flow velocities throughout the left calf. Vascular calcification is evident consistent with known diabetes mellitus. IMPRESSION: Abnormal examination consistent with diffuse peripheral vascular disease. Signed: Jerome Ortiz Verified Date/Time: 09/24/2020 13:42:37 Reading Location: [facility] Radiology Reading [facility] CenterUrea Nitrogen, random [id number] 10:42:00 Test Item Value Reference Range Interpretation Comments Urea Nitrogen, Ur 236 mg/dL (test code = 3095-7) ISSA (test code = Reference Range: No ISSA) NormalsOperator ID - [facility] CenterU[facility] Nitrogen, random [id number] 10:42:00 Test Item Value Reference Range Interpretation Comments Urea Nitrogen, Ur 236 mg/dL (test code = 3095-7) ISSA (test code = Reference Range: No ISSA) NormalsOperator [facility] - [facility] [id number] 10:42:00 Test Item Value Reference Range Interpretation Comments Urea Nitrogen, Ur 236 mg/dL (test code = 3095-7) ISSA (test code = Reference Range: No ISSA) NormalsOperator [place] - [facility], random [id number] 10:42:00 Test Item Value Reference Range Interpretation Comments Urea Nitrogen, Ur 236 mg/dL (test code = 3095-7) ISSA (test code = Reference Range: No ISSA) NormalsOperator ID - [facility], random [id number] 10:42:00 Test Item Value Reference Range Interpretation Comments Urea Nitrogen, Ur 236 mg/dL (test code = 3095-7) ISSA (test code = Reference Range: No ISSA) NormalsOperator ID - [facility], random [id number] 10:42:00 Test Item Value Reference Range Interpretation Comments Urea Nitrogen, Ur 236 mg/dL (test code = 3095-7) ISSA (test code = Reference Range: No ISSA) NormalsOperator ID - [facility] HospitalU[facility] Nitrogen, random [id number] 10:42:00 Test Item Value Reference Range Interpretation Comments Urea Nitrogen, Ur 236 mg/dL (test code = 3095-7) ISSA (test code = Reference Range: No ISSA) NormalsOperator ID - [facility] HospitalUREA NITROGEN, RANDOM [id number] 10:42:00 Test Item Value Reference Range Interpretation Comments UREA NITROGEN URINE (BEAKER) (test 236 mg/dL code = 538) Reference Range: No NormalsOperator ID - ORION CVitamin D, 63-[id number] 10:38:00 Test Item Value Reference Range Interpretation Comments Vitamin D 25-Hydroxy 7.3 ng/mL 6.6-49.9 (test code = 2764) ISSA (test code = ISSA) Effective 01/06/2017: Reference Range ChangeNew: 6.6-49.9 ng/mL Previous: 13.0-47.8 ng/mL Recommended Vitamin D Target Range: 30.0-40.0 ng/mLOperator ID - ORION C Lab Interpretation (test Normal code = 63257-6) [facility], 58-[id number] 10:38:00 Test Item Value Reference Range Interpretation Comments Vitamin D 25-Hydroxy 7.3 ng/mL 6.6-49.9 (test code = 2764) ISSA (test code = ISSA) Effective 01/06/2017: Reference Range ChangeNew: 6.6-49.9 ng/mL Previous: 13.0-47.8 ng/mL Recommended Vitamin D Target Range: 30.0-40.0 ng/mLOperator ID - ORION C Lab Interpretation (test Normal code = 69154-5) [facility], 90-[id number] 10:38:00 Test Item Value Reference Range Interpretation Comments Vitamin D 25-Hydroxy 7.3 ng/mL 6.6-49.9 (test code = 2764) ISSA (test code = ISSA) Effective 01/06/2017: Reference Range ChangeNew: 6.6-49.9 ng/mL Previous: 13.0-47.8 ng/mL Recommended Vitamin D Target Range: 30.0-40.0 ng/mLOperator ID - ORION C Lab Interpretation (test Normal code = 51098-9) [facility], [id number] 10:38:00 Test Item Value Reference Range Interpretation Comments Vitamin D 25-Hydroxy 7.3 ng/mL 6.6-49.9 (test code = 2764) ISSA (test code = ISSA) Effective 01/06/2017: Reference Range ChangeNew: 6.6-49.9 ng/mL Previous: 13.0-47.8 ng/mL Recommended Vitamin D Target Range: 30.0-40.0 ng/mLOperator ID - ORION C Lab Interpretation (test Normal code = 75389-5) [facility], 63-[id number] 10:38:00 Test Item Value Reference Range Interpretation Comments Vitamin D 25-Hydroxy 7.3 ng/mL 6.6-49.9 (test code = 2764) ISSA (test code = ISSA) Effective 01/06/2017: Reference Range ChangeNew: 6.6-49.9 ng/mL Previous: 13.0-47.8 ng/mL Recommended Vitamin D Target Range: 30.0-40.0 ng/mLOperator ID - ORION C Lab Interpretation (test Normal code = 94315-9) [facility], 29-[id number] 10:38:00 Test Item Value Reference Range Interpretation Comments Vitamin D 25-Hydroxy 7.3 ng/mL 6.6-49.9 (test code = 2764) ISSA (test code = ISSA) Effective 01/06/2017: Reference Range ChangeNew: 6.6-49.9 ng/mL Previous: 13.0-47.8 ng/mL Recommended Vitamin D Target Range: 30.0-40.0 ng/mLOperator ID - ORION C Lab Interpretation (test Normal code = 28228-6) [facility], [id number] 10:38:00 Test Item Value Reference Range Interpretation Comments Vitamin D 25-Hydroxy 7.3 ng/mL 6.6-49.9 (test code = 2764) ISSA (test code = ISSA) Effective 01/06/2017: Reference Range ChangeNew: 6.6-49.9 ng/mL Previous: 13.0-47.8 ng/mL Recommended Vitamin D Target Range: 30.0-40.0 ng/mLOperator ID - ORION C Lab Interpretation (test Normal code = 67847-7) [facility], [id number] 10:38:00 Test Item Value Reference Range Interpretation Comments VITAMIN D 25-OH (BEAKER) (test code 7.3 ng/mL 6.6-49.9 = 2764) Effective 01/06/2017: Reference Range ChangeNew: 6.6-49.9 ng/mL Previous: 13.0- 47.8 ng/mLRecommendedVitamin D Target Range: 30.0-40.0 ng/mLOperator ID - ORION Carrasquillo PTH, [id number] 07:31:00 Test Item Value Reference Range Interpretation Comments PTH (test code = 2731-8) 271.6 pg/mL 15-90 H ISSA (test code = ISSA) Business Banker ID - [id number] Lab Interpretation (test Abnormal code = 94831-0) [facility], [id number] 07:31:00 Test Item Value Reference Range Interpretation Comments PTH (test code = 2731-8) 271.6 pg/mL 15-90 H ISSA (test code = ISSA) Business Banker ID - [id number] Lab Interpretation (test Abnormal code = 47427-9) [facility], [id number] 07:31:00 Test Item Value Reference Range Interpretation Comments PTH (test code = 2731-8) 271.6 pg/mL 15-90 H ISSA (test code = ISSA) Business Banker ID - [id number] Lab Interpretation (test Abnormal code = 15174-2) [facility], [id number] 07:31:00 Test Item Value Reference Range Interpretation Comments PTH (test code = 2731-8) 271.6 pg/mL 15-90 H ISSA (test code = ISSA) Business Banker ID - [id number] Lab Interpretation (test Abnormal code = 56209-8) [facility], [id number] 07:31:00 Test Item Value Reference Range Interpretation Comments PTH (test code = 2731-8) 271.6 pg/mL 15.0-90.0 H ISSA (test code = ISSA) Business Banker ID - [id number] Lab Interpretation (test Abnormal code = 10082-4) [facility], [id number] 07:31:00 Test Item Value Reference Range Interpretation Comments PTH (test code = 2731-8) 271.6 pg/mL 15.0-90.0 H ISSA (test code = ISSA) Business Banker ID - [id number] Lab Interpretation (test Abnormal code = 10843-6) [facility], [id number] 07:31:00 Test Item Value Reference Range Interpretation Comments PTH (test code = 2731-8) 271.6 pg/mL 15.0-90.0 H ISSA (test code = ISSA) Business Banker ID - [id number] Lab Interpretation (test Abnormal code = 69818-2) [facility], [id number] 07:31:00 Test Item Value Reference Range Interpretation Comments PARATHYROID HORMONE INTACT 271.6 pg/mL 15.0-90.0 H (BEAKER) (test code = 577) Business Banker ID - [id number] 06:45:00 Test Item Value Reference Range Interpretation Comments POC-GLUCOSE METER 122 mg/dL 70-110 H : Notified RN/MD: TESTED (CECILIO) (test code AT [place] [address] [address] = 1538) [facility] [address]: Business Banker/Techni cornelia ID = [id number] for Coco Griffin Iron, TIBC, % sat. (without ferritin)2020-09-24 06:41:00 Test Item Value Reference Range Interpretation Comments Iron (test code = 43.0 ug/dL 45-170 L 2498-4) TIBC (test code = 189 ug/dL 250-550 L 2500-7) Iron % Saturation (test 23 % 20-55 code = 2502-3) ISSA (test code = ISSA) Business Banker ID - LITOOperator ID - ARCHIE Lab Interpretation (test Abnormal code = 45187-8) [facility], % [facility]. (without ferritin)2020-09-24 06:41:00 Test Item Value Reference Range Interpretation Comments Iron (test code = 43.0 ug/dL 45-170 L 2498-4) TIBC (test code = 189 ug/dL 250-550 L 2500-7) Iron % Saturation (test 23 % 20-55 code = 2502-3) ISSA (test code = ISSA) Business Banker ID - LITOOperator ID - ARCHIE Lab Interpretation (test Abnormal code = 81857-3) [facility], % sat. (without ferritin)2020-09-24 06:41:00 Test Item Value Reference Range Interpretation Comments Iron (test code = 43.0 ug/dL 45-170 L 2498-4) TIBC (test code = 189 ug/dL 250-550 L 2500-7) Iron % Saturation (test 23 % 20-55 code = 2502-3) ISSA (test code = ISSA) Business Banker ID - LITOOperator ID - ARCHIE Lab Interpretation (test Abnormal code = 91985-7) [facility], TIBC, % sat. (without ferritin)2020-09-24 06:41:00 Test Item Value Reference Range Interpretation Comments Iron (test code = 43.0 ug/dL 45-170 L 2498-4) TIBC (test code = 189 ug/dL 250-550 L 2500-7) Iron % Saturation (test 23 % 20-55 code = 2502-3) ISSA (test code = ISSA) Business Banker ID - LITOOperator ID - ARCHIE Lab Interpretation (test Abnormal code = 51129-0) [facility], TIBC, % sat. (without ferritin)2020-09-24 06:41:00 Test Item Value Reference Range Interpretation Comments Iron (test code = 43.0 ug/dL 45.0-170.0 L 2498-4) TIBC (test code = 189 ug/dL 250-550 L 2500-7) Iron % Saturation (test 23 % 20-55 code = 2502-3) ISSA (test code = ISSA) Business Banker ID - LITOOperator ID - ARCHIE Lab Interpretation (test Abnormal code = 04348-3) [facility], TIBC, % sat. (without ferritin)2020-09-24 06:41:00 Test Item Value Reference Range Interpretation Comments Iron (test code = 43.0 ug/dL 45.0-170.0 L 2498-4) TIBC (test code = 189 ug/dL 250-550 L 2500-7) Iron % Saturation (test 23 % 20-55 code = 2502-3) ISSA (test code = ISSA) Business Banker ID - LITOOperator ID - ARCHIE Lab Interpretation (test Abnormal code = 18300-1) [facility], TIBC, % sat. (without ferritin)2020-09-24 06:41:00 Test Item Value Reference Range Interpretation Comments Iron (test code = 43.0 ug/dL 45.0-170.0 L 2498-4) TIBC (test code = 189 ug/dL 250-550 L 2500-7) Iron % Saturation (test 23 % 20-55 code = 2502-3) ISSA (test code = ISSA) Business Banker ID - LITOOperator ID - ARCHIE Lab Interpretation (test Abnormal code = 41051-1) [facility]BC, % SAT. (WITHOUT FERRITIN)2020-09-24 06:41:00 Test Item Value Reference Range Interpretation Comments IRON (BEAKER) (test code = 547) 43.0 ug/dL 45.0-170.0 L TOTAL IRON BINDING CAPACITY 189 ug/dL 250-550 L (BEAKER) (test code = 769) IRON % SATURATION (2) (BEAKER) 23 % 20-55 (test code = 2590) Business Banker ID - LITOOperator ID - [id number] 06:23:00 Test Item Value Reference Range Interpretation Comments Ferritin (test code = 190.40 ng/mL 2276-4) ISSA (test code = ISSA) Business Banker ID - ARCHIE Lab Interpretation (test Normal code = 08695-4) [facility] 06:23:00 Test Item Value Reference Range Interpretation Comments Ferritin (test code = 190.40 ng/mL 22 2276-4) ISSA (test code = ISSA) Business Banker ID - ARCHIE Lab Interpretation (test Normal code = 02757-0) [facility] 06:23:00 Test Item Value Reference Range Interpretation Comments Ferritin (test code = 190.40 ng/mL 2276-4) ISSA (test code = ISSA) Business Banker ID - ARCHIE Lab Interpretation (test Normal code = 35350-5) [facility] 06:23:00 Test Item Value Reference Range Interpretation Comments Ferritin (test code = 190.40 ng/mL 22 2276-4) ISSA (test code = ISSA) Business Banker ID - ARCHIE Lab Interpretation (test Normal code = 95098-7) [facility] 06:23:00 Test Item Value Reference Range Interpretation Comments Ferritin (test code = 190.40 ng/mL 22.00-322.00 2276-4) ISSA (test code = ISSA) Business Banker ID - ARCHIE Lab Interpretation (test Normal code = 33021-2) [facility] 06:23:00 Test Item Value Reference Range Interpretation Comments Ferritin (test code = 190.40 ng/mL 22.00-322.00 2276-4) ISSA (test code = ISSA) Business Banker ID - ARCHIE Lab Interpretation (test Normal code = 44230-5) [facility] 06:23:00 Test Item Value Reference Range Interpretation Comments Ferritin (test code = 190.40 ng/mL 22.00-322.00 2276-4) ISSA (test code = ISSA) Business Banker ID - ARCHIE Lab Interpretation (test Normal code = 18673-1) [facility] 06:23:00 Test Item Value Reference Range Interpretation Comments FERRITIN (BEAKER) (test code = 190.40 ng/mL 22.00-322.00 361) Business Banker ID - LITOBASIC METABOLIC [id number] 06:18:00 Test Item Value Reference Range Interpretation [...] S NOT APPLICABLE FOR DIALYSIS PATIEN TS. Business Banker ID - LITOOperator ID - LITOOperator ID - LITOOperator ID - LITOOperator ID - LITOOperator ID - LITOOperator ID - LITOOperator ID - LITOOperator ID - LITOOperator ID - [id number] 06:04:00 Test Item Value Reference Range Interpretation Comments MAGNESIUM (BEAKER) (test code = 1.6 mg/dL 1.5-3.0 627) Business Banker ID - LITOOperator ID - LITOOperator ID - LITOOperator ID - LITOCBC W/PLT COUNT & AUTO [id number] 06:03:00 Test Item Value Reference Range Interpretation [...] PERCENT (BEAKER) (test code = 2801) POCT-GLUCOSE [id number] 21:37:00 Test Item Value Reference Range Interpretation Comments POC-GLUCOSE METER 185 mg/dL 70-110 H : TESTED A T [address] (BEAKER) (test code [address], = 1538) [facility] [address]: Business Banker/Techni cornelia ID = [id number] for Rachel Branham U/S, RENAL, [id number] 21:19:00Reason for exam:->[facility] 1975 Sex: MFINAL [...] Signed: Moose Petersenort Verified Date/Time: 09/23/2020 21:19:36 US renal [id number] 21:19:00Interface, External Ris In - 09/23/2020 9:21 PM CDTFINAL REPORT Ultrasound of the Kidneys Clinical History: Acute renal failure Comparison: Renal ultrasound 04/03/2020. Discussion: Sonographic evaluation of the kidneys was performed. Right kidney: 14.2 x 5.7 x 5.7 cm, with cortical t hickness of 1.7 cm. Normal cortical echogenicity. No mass. No shadowing calculus. No hydronephrosis.Left kidney: 11.7 x 5.6 x 4.8 cm, with cortical thickness of 1.6 cm. Mildly increased cortical echogenicity. No mass. No shadowing calculus. No hydronephrosis. Limited doppler evaluation of bilateral main renal arteries and veins demonstrate patency. Bladder: Distended with a prevoid volume of 256 cc.Small postvoid residual of 25 cc. Impression:Mildly echogenic left kidney suggesting medical renal disease.No hydronephrosis.Small urinary bladder postvoid residual. Signed: Moose Petersenort Verified Date/Time: 09/23/2020 21:19:36 [facility] [id number] 21:19:00Interface, External Ris In - 09/23/2020 9:21 PM CDTFINAL REPORT Ultrasound of the Kidneys Clinical History: Acute renal failure Comparison: Renal ultrasound 04/03/2020. Discussion: Sonographic evaluation of the kidneys was performed. Right kidney: 14.2 x 5.7 x 5.7 cm, with cortical t hickness of 1.7 cm. Normal cortical echogenicity. No mass. No shadowing calculus. No hydronephrosis.Left kidney: 11.7 x 5.6 x 4.8 cm, with cortical thickness of 1.6 cm. Mildly increased cortical echogenicity. No mass. No shadowing calculus. No hydronephrosis. Limited doppler evaluation of bilateral main renal arteries and veins demonstrate patency. Bladder: Distended with a prevoid volume of 256 cc.Small postvoid residual of 25 cc. Impression:Mildly echogenic left kidney suggesting medical renal disease.No hydronephrosis.Small urinary bladder postvoid residual. Signed: Moose Petersen MDReport Verified Date/Time: 09/23/2020 21:19:36 [facility] [id number] 21:19:00Interface, External Ris In - 09/23/2020 9:21 PM CDTFINAL REPORT Ultrasound of the Kidneys Clinical History: Acute renal failure Comparison: Renal ultrasound 04/03/2020. Discussion: Sonographic evaluation of the kidneys was performed. Right kidney: 14.2 x 5.7 x 5.7 cm, with cortical t hickness of 1.7 cm. Normal cortical echogenicity. No mass. No shadowing calculus. No hydronephrosis.Left kidney: 11.7 x 5.6 x 4.8 cm, with cortical thickness of 1.6 cm. Mildly increased cortical echogenicity. No mass. No shadowing calculus. No hydronephrosis. Limited doppler evaluation of bilateral main renal arteries and veins demonstrate patency. Bladder: Distended with a prevoid volume of 256 cc.Small postvoid residual of 25 cc. Impression:Mildly echogenic left kidney suggesting medical renal disease.No hydronephrosis.Small urinary bladder postvoid residual. Signed: Moose Peterseneport Verified Date/Time: 09/23/2020 21:19:36 [facility] [id number] 21:19:00Interface, External Ris In - 09/23/2020 9:21 PM CDTFINAL REPORT Ultrasound of the Kidneys Clinical History: Acute renal failure Comparison: Renal ultrasound 04/03/2020. Discussion: Sonographic evaluation of the kidneys was performed. Right kidney: 14.2 x 5.7 x 5.7 cm, with cortical t hickness of 1.7 cm. Normal cortical echogenicity. No mass. No shadowing calculus. No hydronephrosis.Left kidney: 11.7 x 5.6 x 4.8 cm, with cortical thickness of 1.6 cm. Mildly increased cortical echogenicity. No mass. No shadowing calculus. No hydronephrosis. Limited doppler evaluation of bilateral main renal arteries and veins demonstrate patency. Bladder: Distended with a prevoid volume of 256 cc.Small postvoid residual of 25 cc. Impression:Mildly echogenic left kidney suggesting medical renal disease.No hydronephrosis.Small urinary bladder postvoid residual. Signed: Moose Petersen MDReport Verified Date/Time: 09/23/2020 21:19:36 [facility] CenterProtein, random urine 2020-09-23 19:02:00 Test Item Value Reference Range Interpretation Comments Protein, Urine (test code 212 mg/dL 0-14 H = 2888-6) ISSA (test code = ISSA) Business Banker ID - [id number] ID - [id number] Lab Interpretation (test Abnormal code = 66551-4) [facility] [id number] 19:02:00 Test Item Value Reference Range Interpretation Comments Protein, Urine (test code 212 mg/dL 0-14 H = 2888-6) ISSA (test code = ISSA) Business Banker ID - [id number] ID - [id number] Lab Interpretation (test Abnormal code = 00368-2) [facility] random [id number] 19:02:00 Test Item Value Reference Range Interpretation Comments Protein, Urine (test code 212 mg/dL 0-14 H = 2888-6) ISSA (test code = ISSA) Business Banker ID - [id number] ID - [id number] Lab Interpretation (test Abnormal code = 25207-5) [facility] random [id number] 19:02:00 Test Item Value Reference Range Interpretation Comments Protein, Urine (test code 212 mg/dL 0-14 H = 2888-6) ISSA (test code = ISSA) Business Banker ID - [id number] ID - [id number] Lab Interpretation (test Abnormal code = 79835-3) [facility] random [id number] 19:02:00 Test Item Value Reference Range Interpretation Comments Protein, Urine (test code 212 mg/dL 0-14 H = 2888-6) ISSA (test code = ISSA) Business Banker ID - [id number] ID - [id number] Lab Interpretation (test Abnormal code = 42487-8) [facility] random [id number] 19:02:00 Test Item Value Reference Range Interpretation Comments Protein, Urine (test code 212 mg/dL 0-14 H = 2888-6) ISSA (test code = ISSA) Business Banker ID - [id number] ID - [id number] Lab Interpretation (test Abnormal code = 69586-2) [facility] [id number] 19:02:00 Test Item Value Reference Range Interpretation Comments Protein, Urine (test code 212 mg/dL 0-14 H = 2888-6) ISSA (test code = ISSA) Business Banker ID - [id number] ID - [id number] Lab Interpretation (test Abnormal code = 45517-1) [facility] CenterPROTEIN, RANDOM [id number] 19:02:00 Test Item Value Reference Range Interpretation Comments PROTEIN, URINE (BEAKER) (test code 212 mg/dL 0-14 H = 1569) Business Banker ID - [id number] ID - [id number], random [id number] 18:49:00 Test Item Value Reference Range Interpretation Comments Creatinine, Ur 23.8 mg/dL (test code = 2161-8) ISSA (test code = Reference Range: No ISSA) NormalsOperator ID - [id number] [facility] CenterCreatinine, random [id number] 18:49:00 Test Item Value Reference Range Interpretation Comments Creatinine, Ur 23.8 mg/dL (test code = 216-8) ISSA (test code = Reference Range: No ISSA) NormalsOperator ID - [id number] [facility] CenterCreatinine, random [id number] 18:49:00 Test Item Value Reference Range Interpretation Comments Creatinine, Ur 23.8 mg/dL (test code = 216-8) ISSA (test code = Reference Range: No ISSA) NormalsOperator ID - [id number] [facility] CenterCreatinine, random [id number] 18:49:00 Test Item Value Reference Range Interpretation Comments Creatinine, Ur 23.8 mg/dL (test code = 216-8) ISSA (test code = Reference Range: No ISSA) NormalsOperator ID - [id number] [facility] CenterCreatinine, random [id number] 18:49:00 Test Item Value Reference Range Interpretation Comments Creatinine, Ur 23.8 mg/dL (test code = 216-8) ISSA (test code = Reference Range: No ISSA) NormalsOperator ID - [id number] [facility] CenterCreatinine, random [id number] 18:49:00 Test Item Value Reference Range Interpretation Comments Creatinine, Ur 23.8 mg/dL (test code = 216-8) ISSA (test code = Reference Range: No ISSA) NormalsOperator ID - [id number] [facility] CenterCreatinine, random [id number] 18:49:00 Test Item Value Reference Range Interpretation Comments Creatinine, Ur 23.8 mg/dL (test code = 216-8) ISSA (test code = Reference Range: No ISSA) NormalsOperator ID - [id number] [facility] CenterCREATININE, RANDOM [id number] 18:49:00 Test Item Value Reference Range Interpretation Comments CREATININE URINE (BEAKER) (test 23.8 mg/dL code = 375) Reference Range: No NormalsOperator ID - [id number], random urine 2020-09-23 18:43:00 Test Item Value Reference Range Interpretation Comments ChlorideUr (test 117 meq/L code = 03407-4) ISSA (test code = Reference Range: No ISSA) NormalsOperator ID - [id number] [facility] CenterPotassium, random [id number] 18:43:00 Test Item Value Reference Range Interpretation Comments Potassium Urine 21.5 meq/L (test code = 2828-2) ISSA (test code = Reference Range: No ISSA) NormalsOperator ID - [id number] [facility] [id number] 18:43:00 Test Item Value Reference Range Interpretation Comments Sodium Urine (test 113 meq/L code = 2955-3) ISSA (test code = Reference Range: No ISSA) NormalsOperator ID - [id number] [facility] CenterChloride, random [id number] 18:43:00 Test Item Value Reference Range Interpretation Comments ChlorideUr (test 117 meq/L code = 83474-9) ISSA (test code = Reference Range: No ISSA) NormalsOperator ID - [id number] [facility] CenterPotassium, random [id number] 18:43:00 Test Item Value Reference Range Interpretation Comments Potassium Urine 21.5 meq/L (test code = 2828-2) ISSA (test code = Reference Range: No ISSA) NormalsOperator ID - [id number] [facility] Centerodium, random [id number] 18:43:00 Test Item Value Reference Range Interpretation Comments Sodium Urine (test 113 meq/L code = 2955-3) ISSA (test code = Reference Range: No ISSA) NormalsOperator ID - [id number] [facility] CenterChloride, random [id number] 18:43:00 Test Item Value Reference Range Interpretation Comments ChlorideUr (test 117 meq/L code = 63864-4) ISSA (test code = Reference Range: No ISSA) NormalsOperator ID - [id number] [facility] CenterPotassium, random [id number] 18:43:00 Test Item Value Reference Range Interpretation Comments Potassium Urine 21.5 meq/L (test code = 2828-2) ISSA (test code = Reference Range: No ISSA) NormalsOperator ID - [id number] [facility] Centerodium, random [id number] 18:43:00 Test Item Value Reference Range Interpretation Comments Sodium Urine (test 113 meq/L code = 2955-3) ISSA (test code = Reference Range: No ISSA) NormalsOperator ID - [id number] [facility] CenterChloride, random [id number] 18:43:00 Test Item Value Reference Range Interpretation Comments ChlorideUr (test 117 meq/L code = 51201-9) ISSA (test code = Reference Range: No ISSA) NormalsOperator ID - [id number] [facility] CenterPotassium, random [id number] 18:43:00 Test Item Value Reference Range Interpretation Comments Potassium Urine 21.5 meq/L (test code = 2828-2) ISSA (test code = Reference Range: No ISSA) NormalsOperator ID - [id number] [facility] Centerodium, random [id number] 18:43:00 Test Item Value Reference Range Interpretation Comments Sodium Urine (test 113 meq/L code = 2955-3) ISSA (test code = Reference Range: No ISSA) NormalsOperator ID - [id number] [facility] CenterChloride, random [id number] 18:43:00 Test Item Value Reference Range Interpretation Comments ChlorideUr (test 117 meq/L code = 97089-8) ISSA (test code = Reference Range: No ISSA) NormalsOperator ID - [id number] [facility] CenterPotassium, random [id number] 18:43:00 Test Item Value Reference Range Interpretation Comments Potassium Urine 21.5 meq/L (test code = 2828-2) ISSA (test code = Reference Range: No ISSA) NormalsOperator ID - [id number] [facility] Centerodium, random [id number] 18:43:00 Test Item Value Reference Range Interpretation Comments Sodium Urine (test 113 meq/L code = 2955-3) ISSA (test code = Reference Range: No ISSA) NormalsOperator ID - [id number] [facility] CenterChlor[facility], random [id number] 18:43:00 Test Item Value Reference Range Interpretation Comments ChlorideUr (test 117 meq/L code = 83532-5) ISSA (test code = Reference Range: No ISSA) NormalsOperator ID - [id number] [facility] CenterPotassium, random [id number] 18:43:00 Test Item Value Reference Range Interpretation Comments Potassium Urine 21.5 meq/L (test code = 2828-2) ISSA (test code = Reference Range: No ISSA) NormalsOperator ID - [id number] [facility] Centerodium, random [id number] 18:43:00 Test Item Value Reference Range Interpretation Comments Sodium Urine (test 113 meq/L code = 2955-3) ISSA (test code = Reference Range: No ISSA) NormalsOperator ID - [id number] [facility] CenterChlor[facility], random [id number] 18:43:00 Test Item Value Reference Range Interpretation Comments ChlorideUr (test 117 meq/L code = 55501-6) ISSA (test code = Reference Range: No ISSA) NormalsOperator ID - [id number] [facility] CenterPotassium, random [id number] 18:43:00 Test Item Value Reference Range Interpretation Comments Potassium Urine 21.5 meq/L (test code = 2828-2) ISSA (test code = Reference Range: No ISSA) NormalsOperator ID - [id number] [facility] Centerodium, random [id number] 18:43:00 Test Item Value Reference Range Interpretation Comments Sodium Urine (test 113 meq/L code = 2955-3) ISSA (test code = Reference Range: No ISSA) NormalsOperator ID - [id number] [facility] CenterCHLORIDE, RANDOM [id number] 18:43:00 Test Item Value Reference Range Interpretation Comments CHLORIDE URINE (BEAKER) (test code 117 meq/L = 682) Reference Range: No NormalsOperator ID - [id number], RANDOM URINE 2020-09-23 18:43:00 Test Item Value Reference Range Interpretation Comments POTASSIUM URINE (BEAKER) (test 21.5 meq/L code = 195) Reference Range: No NormalsOperator ID - [id number], RANDOM [id number] 18:43:00 Test Item Value Reference Range Interpretation Comments SODIUM URINE (BEAKER) (test code = 113 meq/L 243) Reference Range: No NormalsOperator ID - [id number] w/Microscopic + Reflex to [id number] 17:44:00 Test Item Value Reference Range Interpretation Comments Color, UA (test code = Yellow 5778-6) Clarity, UA (test code = Clear 5767-9) Specific [place], UA 1.020 1.001-1.035 (test code = 5811-5) pH, UA (test code = 7.0 5.0-8.0 5803-2) Protein, UA (test code = 100 mg/dL Negative A 36148-3) Glucose, UA (test code = 100 mg/dL Negative A 365) Ketones, UA (test code = Negative Negative 2514-8) Bilirubin, UA (test code Negative Negative = 73702-5) Blood, UA (test code = Trace Negative A 61230-5) Nitrite, UA (test code = Negative Negative 5802-4) Leukocytes, UA (test Negative Negative code = 5799-2) Urobilinogen, UA (test 0.2 mg/dL 0.2-1 code = 84629-6) Bacteria, UA (test code None Seen = 80354-9) RBC, UA (test code = <5 See_Comment [Autom ated message] 799-7) The system [employer] generated this result transmit josé luis reference range : /HPF. The refer ence range was not u sed to interpret th is result as normal/abnormal . WBC, UA (test code = None Seen See_Comment [Autom ated message] 29074-3) The system [employer] generated this result transmit josé luis reference range : /HPF. The refer ence range was not u sed to interpret th is result as normal/abnormal . SQUAMOUS EPITHELIAL <5 See_Comment [Automa josé luis message] (test code = 02803-3) The sy stem which generated this result transmit josé luis reference range : /HPF. The refer ence range was not u sed to interpret th is result as normal/abnormal . Specimen Source (test code = 2795) Lab Interpretation (test Abnormal code = 51271-3) [facility] w/Microscopic + Reflex to Culture 2020-09-23 17:44:00 Test Item Value Reference Range Interpretation Comments Color, UA (test code = Yellow 5778-6) Clarity, UA (test code = Clear 5767-9) Specific [place], UA 1.020 1.001-1.035 (test code = 5811-5) pH, UA (test code = 7.0 5.0-8.0 5803-2) Protein, UA (test code = 100 mg/dL Negative A 22273-8) Glucose, UA (test code = 100 mg/dL Negative A 365) Ketones, UA (test code = Negative Negative 2514-8) Bilirubin, UA (test code Negative Negative = 67801-0) Blood, UA (test code = Trace Negative A 46187-5) Nitrite, UA (test code = Negative Negative 5802-4) Leukocytes, UA (test Negative Negative code = 5799-2) Urobilinogen, UA (test 0.2 mg/dL 0.2-1 code = 01476-0) Bacteria, UA (test code None Seen = 38216-5) RBC, UA (test code = <5 See_Comment [Autom ated message] 799-7) The system [employer] generated this result transmit josé luis reference range : /HPF. The refer ence range was not u sed to interpret th is result as normal/abnormal . WBC, UA (test code = None Seen See_Comment [Autom ated message] 61112-9) The system [employer] generated this result transmit josé luis reference range : /HPF. The refer ence range was not u sed to interpret th is result as normal/abnormal . SQUAMOUS EPITHELIAL <5 See_Comment [Automa josé luis message] (test code = 10918-2) The sy stem which generated this result transmit josé luis reference range : /HPF. The refer ence range was not u sed to interpret th is result as normal/abnormal . Specimen Source (test code = 2795) Lab Interpretation (test Abnormal code = 77272-1) [facility]/Microscopic + Reflex to Culture 2020-09-23 17:44:00 Test Item Value Reference Range Interpretation Comments Color, UA (test code = Yellow 5778-6) Clarity, UA (test code = Clear 5767-9) Specific [place], UA 1.020 1.001-1.035 (test code = 5811-5) pH, UA (test code = 7.0 5.0-8.0 5803-2) Protein, UA (test code = 100 mg/dL Negative A 71197-9) Glucose, UA (test code = 100 mg/dL Negative A 365) Ketones, UA (test code = Negative Negative 2514-8) Bilirubin, UA (test code Negative Negative = 95620-9) Blood, UA (test code = Trace Negative A 49862-4) Nitrite, UA (test code = Negative Negative 5802-4) Leukocytes, UA (test Negative Negative code = 5799-2) Urobilinogen, UA (test 0.2 mg/dL 0.2-1 code = 61990-3) Bacteria, UA (test code None Seen = 42162-9) RBC, UA (test code = <5 See_Comment [Autom ated message] 799-7) The system [employer] generated this result transmit josé luis reference range : /HPF. The refer ence range was not u sed to interpret th is result as normal/abnormal . WBC, UA (test code = None Seen See_Comment [Autom ated message] 72592-4) The system [employer] generated this result transmit josé luis reference range : /HPF. The refer ence range was not u sed to interpret th is result as normal/abnormal . SQUAMOUS EPITHELIAL <5 See_Comment [Automa josé luis message] (test code = 55263-5) The sy stem which generated this result transmit josé luis reference range : /HPF. The refer ence range was not u sed to interpret th is result as normal/abnormal . Specimen Source (test code = 2795) Lab Interpretation (test Abnormal code = 80372-2) [facility] 2020-09-23 17:44:00 Test Item Value Reference Range Interpretation Comments Color, UA (test code = Yellow 5778-6) Clarity, UA (test code = Clear 5767-9) Specific [place], UA 1.020 1.001-1.035 (test code = 5811-5) pH, UA (test code = 7.0 5.0-8.0 5803-2) Protein, UA (test code = 100 mg/dL Negative A 64873-2) Glucose, UA (test code = 100 mg/dL Negative A 365) Ketones, UA (test code = Negative Negative 2514-8) Bilirubin, UA (test code Negative Negative = 66613-5) Blood, UA (test code = Trace Negative A 80335-3) Nitrite, UA (test code = Negative Negative 5802-4) Leukocytes, UA (test Negative Negative code = 5799-2) Urobilinogen, UA (test 0.2 mg/dL 0.2-1 code = 55052-4) Bacteria, UA (test code None Seen = 76978-1) RBC, UA (test code = <5 See_Comment [Autom ated message] 799-7) The system [employer] generated this result transmit josé luis reference range : /HPF. The refer ence range was not u sed to interpret th is result as normal/abnormal . WBC, UA (test code = None Seen See_Comment [Autom ated message] 23444-1) The system [employer] generated this result transmit josé luis reference range : /HPF. The refer ence range was not u sed to interpret th is result as normal/abnormal . SQUAMOUS EPITHELIAL <5 See_Comment [Automa josé luis message] (test code = 78927-6) The sy stem which generated this result transmit josé luis reference range : /HPF. The refer ence range was not u sed to interpret th is result as normal/abnormal . Specimen Source (test code = 2795) Lab Interpretation (test Abnormal code = 92176-5) [facility] Culture 2020-09-23 17:44:00 Test Item Value Reference Range Interpretation Comments Color, UA (test code = Yellow 5778-6) Clarity, UA (test code = Clear 5767-9) Specific [place], UA 1.020 1.001-1.035 (test code = 5811-5) pH, UA (test code = 7.0 5.0-8.0 5803-2) Protein, UA (test code = 100 mg/dL Negative A 42145-7) Glucose, UA (test code = 100 mg/dL Negative A 365) Ketones, UA (test code = Negative Negative 2514-8) Bilirubin, UA (test code Negative Negative = 72712-9) Blood, UA (test code = Trace Negative A 51788-3) Nitrite, UA (test code = Negative Negative 5802-4) Leukocytes, UA (test Negative Negative code = 5799-2) Urobilinogen, UA (test 0.2 mg/dL 0.2-1.0 code = 81011-5) Bacteria, UA (test code None Seen = 12703-2) RBC, UA (test code = <5 See_Comment [Autom ated message] 799-7) The system [employer] generated this result transmit josé luis reference range : /HPF. The refer ence range was not u sed to interpret th is result as normal/abnormal . WBC, UA (test code = None Seen See_Comment [Autom ated message] 47709-8) The system [employer] generated this result transmit josé luis reference range : /HPF. The refer ence range was not u sed to interpret th is result as normal/abnormal . SQUAMOUS EPITHELIAL <5 See_Comment [Automa josé luis message] (test code = 25431-3) The sy stem which generated this result transmit josé luis reference range : /HPF. The refer ence range was not u sed to interpret th is result as normal/abnormal . Specimen Source (test code = 2795) Lab Interpretation (test Abnormal code = 67001-6) [facility] Culture 2020-09-23 17:44:00 Test Item Value Reference Range Interpretation Comments Color, UA (test code = Yellow 5778-6) Clarity, UA (test code = Clear 5767-9) Specific [place], UA 1.020 1.001-1.035 (test code = 5811-5) pH, UA (test code = 7.0 5.0-8.0 5803-2) Protein, UA (test code = 100 mg/dL Negative A 51942-2) Glucose, UA (test code = 100 mg/dL Negative A 365) Ketones, UA (test code = Negative Negative 2514-8) Bilirubin, UA (test code Negative Negative = 67710-2) Blood, UA (test code = Trace Negative A 01908-9) Nitrite, UA (test code = Negative Negative 5802-4) Leukocytes, UA (test Negative Negative code = 5799-2) Urobilinogen, UA (test 0.2 mg/dL 0.2-1.0 code = 69599-9) Bacteria, UA (test code None Seen = 70012-4) RBC, UA (test code = <5 See_Comment [Autom ated message] 799-7) The system [employer] generated this result transmit josé luis reference range : /HPF. The refer ence range was not u sed to interpret th is result as normal/abnormal . WBC, UA (test code = None Seen See_Comment [Autom ated message] 42743-6) The system [employer] generated this result transmit josé luis reference range : /HPF. The refer ence range was not u sed to interpret th is result as normal/abnormal . SQUAMOUS EPITHELIAL <5 See_Comment [Automa josé luis message] (test code = 56576-2) The sy stem which generated this result transmit josé luis reference range : /HPF. The refer ence range was not u sed to interpret th is result as normal/abnormal . Specimen Source (test code = 2795) Lab Interpretation (test Abnormal code = 80502-7) [facility]lex [facility] Culture 2020-09-23 17:44:00 Test Item Value Reference Range Interpretation Comments Color, UA (test code = Yellow 5778-6) Clarity, UA (test code = Clear 5767-9) Specific [place], UA 1.020 1.001-1.035 (test code = 5811-5) pH, UA (test code = 7.0 5.0-8.0 5803-2) Protein, UA (test code = 100 mg/dL Negative A 12407-3) Glucose, UA (test code = 100 mg/dL Negative A 365) Ketones, UA (test code = Negative Negative 2514-8) Bilirubin, UA (test code Negative Negative = 84145-3) Blood, UA (test code = Trace Negative A 14093-4) Nitrite, UA (test code = Negative Negative 5802-4) Leukocytes, UA (test Negative Negative code = 5799-2) Urobilinogen, UA (test 0.2 mg/dL 0.2-1.0 code = 94553-1) Bacteria, UA (test code None Seen = 76946-6) RBC, UA (test code = <5 See_Comment [Autom ated message] 799-7) The system [employer] generated this result transmit josé luis reference range : /HPF. The refer ence range was not u sed to interpret th is result as normal/abnormal . WBC, UA (test code = None Seen See_Comment [Autom ated message] 27919-1) The system whic h generated this result transmit josé luis reference range : /HPF. The refer ence range was not u sed to interpret th is result as normal/abnormal . SQUAMOUS EPITHELIAL <5 See_Comment [Automa josé luis message] (test code = 66324-4) The sy stem which generated this result transmit josé luis reference range : /HPF. The refer ence range was not u sed to interpret th is result as normal/abnormal . Specimen Source (test code = 2795) Lab Interpretation (test Abnormal code = 31215-4) [facility] [id number] 17:44:00 Test Item Value Reference Range Interpretation [...] 1663) SOURCE(BEAKER) (test code = 2795) POCT-GLUCOSE [id number] 16:33:00 Test Item Value Reference Range Interpretation Comments POC-GLUCOSE METER 232 mg/dL 70-110 H : TESTED A T [facility] 1317 (BEMARTY) (test code [address], = 1538) [facility] 77 478: Business Banker/Techni cornelia ID = [id number] for Mily Coy 2D Echo W/Doppler(CW/PW/Color)2020-09-23 14:27:41Ejection FractionSLEH ECHO HEARTLAB MKCKESSON CPACSInterface, External Ris In - 09/23/2020 2:27 PM CD TTransthoracic Echocardiography Report (TTE) Demographics Patient Name FRANDY FORD Date of Study09/23/2020 MERRITT Gender Male Visit Number [id number] Race Number [id number] Number Date of 1975 Referring Physician Age 44 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 Procedure Type of Study TTE procedure:2DECHOW DOPPLER(CW/PW/COLOR) (Routine) Indications:Dyspnea/SOB.Clinical HistorytiastrokerenalmihtnhlddmchfHeight: 70 inches Weight: 126.55 kg (279 lbs) BSA: 2.4 m^2 BMI: 40.03 kg/m^2HR: 67 bpm BP: 153/86 mmHg Summary Severely reduced LV function. EF is estimated at 25-30% No evidence of pericardial effusion. Normal tricuspid valve structure and function.Mild TR noted with moderate pulmonary hypertension noted by RVSP Signature Electronicallysigned by Radha Chung MD.(Interpreting physician) on 09/23/2020 02:27 PM Findings Technical Quality: Limited visualization due to [...] ml LV Septum Diastolic: 1.57 cm LV Septum Systolic: 1.6 cm LV PW Diastolic: 1.39 cm LV FS: 10.4 % LV PW Systolic: 1.32 cm LVOT Diameter: 1.77 cm LVEF: 21.9 [...] mmHg Mean Velocity: 0.45 m/s Deceleration Time: 159.5 msec Mean Gradient: 1.06 mmHg Area (continuity): 1.26 cm^2 MV Area (PHT): 5.36 cm^2 MR Velocity: 3.96 m/s MV VTI: 18.61 cm MV Sonny. Peak: Aortic Valve Peak Velocity: 1.32 m/s Mean Velocity: 0.86 m/s Peak Gradient: 6.94 mmHg Mean Gradient: 3.6 mmHg AV Area (continuity): 1.08 cm^2 AV VTI: 21.7 cm Cusp Separation: 1.32 cm AV DVI: 0.44 LVOT Peak Velocity: [...] Gradient: 2.05 mmHg Estimated PASP: 47.75 mmHgCH[facility]/Doppler(CW/PW/Color)2020-09-23 14:27:41Ejection FractionSLEH ECHO HEARTLAB MKCKESSON CPACSInterface, External Ris In - 09/23/2020 2:27 PM CDTTransthoracic Echocardiography Report (TTE) Demographics Patient Name FRANDY FORD Date of Study09/23/2020 MERRITT Gender Male Visit Number [id number] Race Number [id number] Number Date of 1975 Referring Physician 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 Procedure Type of Study TTE procedure:2DECHO W DOPPLER(CW/PW/COLOR) (Routine) Indications:Dyspnea/SOB.Clinical HistorytiastrokerenalmihtnhlddmchfHeight: 70 inches Weight: 126.55 kg (279 lbs) BSA: 2.4 m^2 BMI: 40.03 kg/m^2HR: 67 bpm BP: 153/86 mmHgSummary Severely reduced LV function. EF is estimated [...] ml LV Septum Diastolic: 1.57 cm LV Septum Systolic: 1.6 cm LV PW Diastolic: 1.39 cm LV FS: 10.4 % LV PW Systoli c: 1.32 cm LVOT Diameter: 1.77 cm LVEF: 21.9 [...] mmHg Mean Velocity: 0.45 m/s Deceleration Time: 159.5 msec Mean Gradient: 1.06 mmHg Area (continuity): 1.26 cm^2 MV Area (PHT): 5.36 cm^2 MR Velocity: 3.96 m/s MV VTI: 18.61 cm MV Sonny. Peak: Aortic Valve Peak Velocity: 1.32 m/s Mean Velocity: 0.86 m/s Peak Gradient: 6.94 mmHg Mean Gradient: 3.6 mmHg AV Area (continuity): 1.08 cm^2 AV VTI: 21.7 cm Cusp Separation: 1.32 cm AV DVI: 0.44 LVOT Peak Velocity: 0.6 m/s Peak Gradient: 1.45 mmHgMean Velocity: 0.35 m/s Mean Gradient: 0.63 mmHg LVOT Diameter: 1.77 cm LVOT VTI: 9.5 cm LVOT Area: 2.46 cm^2 LVOT SV:23.36 ml LVOT CO: 1.57 l/min LVOT CI: 0.65 l/min/m^2 Tricuspid Valve Estimated RVSP: 47.87 mmHg Estimated RAP: 10 mmHg TR Velocity: 3.07 m/s TR Gradient: 37.75 mmHg Pulmonic Valve PeakVelocity: 0.72 m/s Peak Gradient: 2.05 mmHg Estimated PASP: 47.75 mmHgSt [facility]2D [facility] W/Doppler(CW/PW/Color)2020-09-23 14:27:41Ejection FractionSLEH ECHO HEARTLAB MKCKESSON CPACSInterface, External Ris In - 09/23/2020 2:27 PM CDTTransthoracic Echocardiography Report (TTE) Demographics Patient Name FRANDY FORD Date of Study09/23/2020 MERRITT Gender Male Visit Number [id number] Race Room Number [id number] Number Date of 1975 Referring Physician 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 Procedure Type of Study TTE procedure:2DECHO W DOPPLER(CW/PW/COLOR) (Routine) Indications:Dyspnea/SOB.Clinical HistorytiastrokerenalmihtnhlddmchfHeight: 70 inches Weight: 126.55 kg (279 lbs) BSA: 2.4 m^2 BMI: 40.03 kg/m^2HR: 67 bpm BP: 153/86 mmHgSummary Severely reduced LV function. EF is estimated at 25-30% No evidence of pericardial effusion.Normal tricuspid valve structure and function.Mild TR noted [...] ml LV Septum Diastolic: 1.57 cm LV Septum Systolic: 1.6 cm LV PW Diastolic: 1.39 cm LV FS: 10.4 % LV PW Systolic: 1.32 cm LVOT Diameter: 1.77 cm LVEF: 21.9 [...] mmHg Mean Velocity: 0.45 m/s Deceleration Time: 159.5 msec Mean Gradient: 1.06 mmHg Area (continuity): 1.26 cm^2 MV Area (PHT): 5.36 cm^2MR Velocity: 3.96 m/s MV VTI: 18.61 cm MV Sonny. Peak: Aortic Valve Peak Velocity: 1.32 m/s Mean Velocity: 0.86 m/s Peak Gradient: 6.94 mmHg Mean Gradient: 3.6 mmHg AV Area (continuity): 1.08 cm^2 AV VTI: 21.7 cm Cusp Separation: 1.32 cm AV DVI: 0.44 LVOT Peak Velocity: 0.6 m/s Peak Gradient: 1.45 mmHgMean Velocity: 0.35 m/s Mean Gradient: 0.63 mmHg LVOT Diameter: 1.77 cm LVOT VTI: 9.5 cm LVOT Area: 2.46 cm^2 LVOT SV:23.36 ml LVOT CO: 1.57 l/min LVOT CI: 0.65 l/min/m^2 Tricuspid Valve Estimated RVSP: 47.87 mmHg Estimated RAP: 10 mmHg TR Velocity: 3.07 m/s TR Gradient: 37.75 mmHg Pulmonic Valve PeakVelocity: 0.72 m/s Peak Gradient: 2.05 mmHg Estimated PASP: 47.75 mmHgSt [facility] Center2D Echo W/Doppler(CW/PW/Color)2020-09-23 14:27:41Ejection FractionSLEH ECHO HEARTLAB MKCKESSON CPACSInterface, External Ris In - 09/23/2020 2:27 PM CDTTransthoracic Echocardiography Report (TTE) Demographics Patient Name FRANDY FORD Date of Study09/23/2020 MERRITT Gender Male Visit Number [id number] Race Number [id number] Number Date of 1975 Referring Physician 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 Procedure Type of Study TTE procedure:2DECHOW DOPPLER(CW/PW/COLOR) (Routine) Indications:Dyspnea/SOB.Clinical HistorytiastrokerenalmihtnhlddmchfHeight: 70 inches Weight: [...] ml LV Septum Diastolic: 1.57 cm LV Septum Systolic: 1.6 cm LV PW Diastolic: 1.39 cm LV FS: 10.4 % LV PW Systol ic: 1.32 cm LVOT Diameter: 1.77 cm LVEF: 21.9 % Right Atrium RA Systolic Pressure: 10 mmHg Right Ventricle RV Diast Dim.: 2.94 cm RV Systolic Pressure: 47.75 mmHg Aorta Ao Root S of Jamil.: 2.31 cm Doppler/Quantitative Measurements Mitral Valve MV Peak E-Wave: 0.99 m/s MV Peak A-Wave: 0.24 m/s P1/2t: 41msec E/A Ratio: 4.09 Peak Velocity: 1.01 m/s Peak Gradient: 3.96 mmHg Mean Velocity: 0.45 m/s Deceleration Time: 159.5 msec Mean Gradient: 1.06 mmHg Area (continuity): 1.26 cm^2 MV Area (PHT): 5.36 cm^2 MR Velocity: 3.96 m/s MV VTI: 18.61 cm MV Sonny. Peak: Aortic Valve Peak Velocity: 1.32 m/s Mean Velocity: 0.86 m/s Peak Gradient: 6.94 mmHg Mean Gradient: 3.6 mmHg AV Area (continuity): 1.08 cm^2 AV VTI: 21.7 cm Cusp Separation: 1.32 cm AV DVI: 0.44 LVOT Peak Velocity: 0.6 m/s Peak Gradient: 1.45 mmHgMean Velocity: 0.35 m/s Mean Gradient: 0.63 mmHg LVOT Diameter: 1.77 cm LVOT VTI: 9.5 cm LVOT Area: 2.46 cm^2 LVOT SV:23.36 ml LVOT CO: 1.57 l/min LVOT CI: 0.65 l/min/m^2 Tricuspid Valve Estimated RVSP: 47.87 mmHg Estimated RAP: 10 mmHg TR Velocity: 3.07 m/s TR Gradient: 37.75 mmHg Pulmonic Valve PeakVelocity: 0.72 m/s Peak Gradient: 2.05 mmHg Estimated PASP: 47.75 mmHgSt [facility] Center2D Echo W/Doppler(CW/PW/Color)2020-09-23 14:27:41[facility]jection [facility]ractionSLE [facility]CHO [facility] W/Doppler(CW/PW/Color)2020-09-23 14:27:41Ejection [facility]ractionSLE ECHO [facility] W/Doppler(CW/PW/Color)2020-09-23 14:27:41Ejection [facility]ractionSLE [facility]CHO [facility] [id number] 11:54:00 Test Item Value Reference Range Interpretation Comments POC-GLUCOSE METER 133 mg/dL 70-110 H : TESTED A T [facility] 1317 (BEAKER) (test code [address], = 1538) [facility] 77 478: Business Banker/Techni cornelia ID = [id number] for Mily Coy RAD, FOOT, MIN 3 VIEWS, [id number] 08:48:00Reason for exam:->[facility] 1975 Sex: MFINAL REPORT Left foot, 3 views. History: Foot wound. Comparison: 03/30/2020. Findings: Vascular calcifications are noted. There is soft tissue irregularity along the distal lateral aspect of the foot overlying the fifth metatarsophalangeal joint, with adjacent erosion of the distal fifth metatarsal head. Remaining bones are intact. Bone mineralization is normal. There is no evidence of acute fracture or dislocation. The joint spaces are within normal limits. IMPRESSION:Fifth metatarsal head osteomyelitis with adjacent soft tissue ulceration. Signed: Howard Lacy VerifiedDate/Time: 09/23/2020 08:48:33 Reading Location: [facility] Radiology Reading Room POCT-GLUCOSE [id number] 08:11:00 Test Item Value Reference Range Interpretation Comments POC-GLUCOSE METER 91 mg/dL 70-110 : TESTED A T [facility] 1317 (BEAKER) (test code = [address], 15[address]) [facility] 77 478: Business Banker/Techni cornelia ID = [id number] for Mily Coy [id number] 08:04:00 Test Item Value Reference Range Interpretation Comments Phosphorus (test code = 3.5 mg/dL 2.5-4.5 2777-1) ISSA (test code = ISSA) Business Banker ID - [id number] Lab Interpretation (test Normal code = 89847-2) [facility] 08:04:00 Test Item Value Reference Range Interpretation Comments Phosphorus (test code = 3.5 mg/dL 2.5-4.5 2777-1) ISSA (test code = ISSA) Business Banker ID - [id number] Lab Interpretation (test Normal code = 87341-9) [facility] 08:04:00 Test Item Value Reference Range Interpretation Comments Phosphorus (test code = 3.5 mg/dL 2.5-4.5 2777-1) ISSA (test code = ISSA) Business Banker ID - [id number] Lab Interpretation (test Normal code = 59992-8) [facility] 08:04:00 Test Item Value Reference Range Interpretation Comments Phosphorus (test code = 3.5 mg/dL 2.5-4.5 2777-1) ISSA (test code = ISSA) Business Banker ID - [id number] Lab Interpretation (test Normal code = 57334-3) [facility] 08:04:00 Test Item Value Reference Range Interpretation Comments Phosphorus (test code = 3.5 mg/dL 2.5-4.5 2777-1) ISSA (test code = ISSA) Business Banker ID - [id number] Lab Interpretation (test Normal code = 98089-0) [facility] 08:04:00 Test Item Value Reference Range Interpretation Comments Phosphorus (test code = 3.5 mg/dL 2.5-4.5 2777-1) ISSA (test code = ISSA) Business Banker ID - [id number] Lab Interpretation (test Normal code = 05567-9) [facility] 08:04:00 Test Item Value Reference Range Interpretation Comments Phosphorus (test code = 3.5 mg/dL 2.5-4.5 2777-1) ISSA (test code = ISSA) Business Banker ID - [id number] Lab Interpretation (test Normal code = 03296-4) [facility]21-[facility]-28 08:04:00 Test Item Value Reference Range Interpretation Comments PHOSPHORUS (BEAKER) (test code = 3.5 mg/dL 2.5-4.5 604) Business Banker ID - [id number] METABOLIC [id number] 06:06:00 Test Item Value Reference Range Interpretation [...] S NOT APPLICABLE FOR DIALYSIS PATIEN TS. Business Banker ID - [id number] ID - [id number] ID - [id number] ID - [id number] ID - [id number] ID - [id number] ID - [id number] ID - [id number] ID - [id number] ID - [id number] 05:56:00 Test Item Value Reference Range Interpretation Comments MAGNESIUM (BEAKER) (test code = 1.5 mg/dL 1.5-3.0 627) Business Banker ID - [id number] ID - [id number] ID - [id number] ID - [id number] CBC W/PLT COUNT & AUTO [id number] 05:39:00 Test Item Value Reference Range Interpretation [...] PERCENT (BEAKER) (test code = 2801) POCT-GLUCOSE [id number] 20:58:00 Test Item Value Reference Range Interpretation Comments POC-GLUCOSE METER 126 mg/dL 70-110 H : TESTED A T [facility] [address] (BEAKER) ([address] [facility] [address], = [address]) [facility] 77 478: Business Banker/Techni cornelia ID = [id number] for Rachel Branham POCT-GLUCOSE [id number] 17:16:00 Test Item Value Reference Range Interpretation Comments POC-GLUCOSE METER 201 mg/dL 70-110 H : TESTED A T [facility] 1317 (BEMARTY) (test code [address], = 1538) [facility] 77 478: Business Banker/Techni cornelia ID = [id number] for Mily Coy SARS-CoV2/RT-PCR (Asymptomatic ONLY)2020-09-22 12:08:00 Test Item Value Reference Range Interpretation Comments SARS-COV2/RT-PCR Negative Not Detected, Performanc e of the Xpert (test code = Negative, See Xpress 36036-7) external report SARS-CoV-2/F siddhartha/RSV test for linked test has only bee n established in nasopharyngeal swab specimens. Use of the Xpert Xpress SARS-CoV-2/Flu/ RSV test with other spec imen types has not b een assessed and pe rformance characteristics are unknown. As wit h any molecular test, mutations withi n the [...] or ot her patient managem ent decisions. Resu lts from the Xpert Xpres s SARS-CoV-2/Flu/ RSV test should be corre lated with the clinic al history, epidem iological data, and other data available to e clinician evalu ating the patient. Invali d test results may occ ur from improper specim en collection; matilde lure to follow the brady mmended sample collecti on, handling, and s torage procedures; nik hnical error. False ne gative results may occ ur if virus is presen t at levels below th e analytical limi t of detection (LOD: 131 copies/mL). Vir al nucleic acid ma y persist in vivo, indepe ndent of virus viability . Detection of an alyte target(s) does not imply that the corres ponding virus(es) are i nfectious or are the caus ative agents for clin ical symptoms. Recen t patient exposure to Flu Mist or other live atte nuated influenza vacci brittany may cause inaccurat e positive result s.This test has been a uthorized by FDA under an EUA for use by authoriz ed laboratories. T his test is only authori lynetted for the duration of the declaration gerson [...] Fact Sh eet for Healthcare Prov iders: https://www.[employer]/ Documents/Xpert %20Xpress %46KXAM-BeD-6-F siddhartha-RSV/30 2-4508%20Rev.%2 0B%20HCP% 20Fact%20Sheet. pdf Fact Sheet for Healt hcare Patients: https://www.[employer]/ Documents/Xpert %20Xpress %34XFAP-KjY-1-F siddhartha-RSV/30 2-4507%20Rev.%2 0B%20Pati ent%20Fact%20Sh eet.pdf SARS-COV-2 SLSL Performed at:[facility] PERFORMING LAB [id number] (test code = Ignacio Nelson 26481-2) [place] [address] ph: [phone] [facility] (Asymptomatic ONLY)2020-09-22 12:08:00 Test Item Value Reference Range Interpretation Comments SARS-COV2/RT-PCR Negative Not Detected, Performanc e of the Xpert (test code = Negative, See Xpress 75547-3) external report SARS-CoV-2/F siddhartha/RSV test for linked test has only bee n established in nasopharyngeal swab specimens. Use of the Xpert Xpress SARS-CoV-2/Flu/ RSV test with other spec imen types has not b een assessed and pe rformance characteristics are unknown. As wit h any molecular test, mutations withi n the [...] or ot her patient managem ent decisions. Resu lts from the Xpert Xpres s SARS-CoV-2/Flu/ RSV test should be corre lated with the clinic al history, epidem iological data, and other data available to th e clinician evalu ating the patient. Invali d test results may occ ur from improper specim en collection; matilde lure to follow the brady mmended sample collecti on, handling, and s torage procedures; nik hnical error. False ne gative results may occ ur if virus is presen t at levels below th e analytical limi t of detection (LOD: 131 copies/mL). Vir al nucleic acid ma y persist in vivo, indepe ndent of virus viability . Detection of an alyte target(s) does not imply that the corres ponding virus(es) are i nfectious or are the caus ative agents for clin ical symptoms. Recen t patient exposure to Flu Mist or other live atte nuated influenza vacci brittany may cause inaccurat e positive result s.This test has been a uthorized by FDA under an EUA for use by authoriz ed laboratories. T his test is only authori zed for the duration of the declaration gerson [...] Healthcare Prov iders: https://www.cep heid.com/ Documents/Xpert %20Xpress %74WQAB-RqV-3-F siddhartha-RSV/30 2-4508%20Rev.%2 0B%20HCP% 20Fact%20Sheet. pdf Fact Sheet for Healt hcare Patients: https://www.Tamoc[employer].Centaur/ Documents/Xpert %20Xpress %75TDHN-ZtN-9-F siddhartha-RSV/30 24507%20Rev.%2 0B%20Pati ent%20Fact%20Sh eet.pdf SARS-COV-2 SLSL Performed at:[facility] PERFORMING LAB Amy starkstal1317 (test code = Ignacio Nelson 14664-0) [place] [address] ph: [phone]2020-09-22 12:08:00 Test Item Value Reference Range Interpretation Comments SARS-COV2/RT-PCR Negative Not Detected, Performanc e of the Xpert (test code = Negative, See Xpress 72025-0) external report SARS-CoV-2/F siddhartha/RSV test for linked test has only bee n established in nasopharyngeal swab specimens. Use of the Xpert Xpress SARS-CoV-2/Flu/ RSV test with other spec imen types has not b een assessed and pe rformance characteristics are unknown. As wit h any molecular test, mutations withi n the [...] or ot her patient managem ent decisions. Resu lts from the Xpert Xpres s SARS-CoV-2/Flu/ RSV test should be corre lated with the clinic al history, epidem iological data, and other data available to e clinician evalu ating the patient. Invali d test results may occ ur from improper specim en collection; matilde lure to follow the brady mmended sample collecti on, handling, and s torage procedures; nik hnical error. False ne gative results may occ ur if virus is presen t at levels below th e analytical limi t of detection (LOD: 131 copies/mL). Vir al nucleic acid ma y persist in vivo, indepe ndent of virus viability . Detection of an alyte target(s) does not imply that the corres ponding virus(es) are i nfectious or are the caus ative agents for clin ical symptoms. Recen t patient exposure to Flu Mist or other live atte nuated influenza vacci brittany may cause inaccurat e positive result s.This test has been a uthorized by FDA under an EUA for use by authoriz ed laboratories. T his test is only authori zed for the duration of the declaration gerson [...] Fact Sh eet for Healthcare Prov iders: https://www.[employer].Centaur/ Documents/Xpert %20Xpress %05SQNV-GcU-4-F siddhartha-RSV/30 2-4508%20Rev.%2 0B%20HCP% 20Fact%20Sheet. pdf Fact Sheet for Healt hcare Patients: https://www.[employer].Centaur/ Documents/Xpert %20Xpress %97AHHU-FdQ-2-F siddhartha-RSV/30 2-4507%20Rev.%2 0B%20Pati ent%20Fact%20Sh eet.pdf SARS-COV-2 SLSL Performed at:[facility] PERFORMING LAB [address]y hyylpv8319 (test code = Ignacio Nelson 63317-8) [place] [address] ph: [phone] [facility]omatic [facility])2020-09-22 12:08:00 Test Item Value Reference Range Interpretation Comments SARS-COV2/RT-PCR Negative Not Detected, Performanc e of the Xpert (test code = Negative, See Xpress 22116-8) external report SARS-CoV-2/F siddhartha/RSV test for linked test has only bee n established in nasopharyngeal swab specimens. Use of the Xpert Xpress SARS-CoV-2/Flu/ RSV test with other spec imen types has not b een assessed and pe rformance characteristics are unknown. As wit h any molecular test, mutations withi n the [...] or ot her patient managem ent decisions. Resu lts from the Xpert Xpres s SARS-CoV-2/Flu/ RSV test should be corre lated with the clinic al history, epidem iological data, and other data available to th e clinician evalu ating the patient. Invali d test results may occ ur from improper specim en collection; matilde lure to follow the brady mmended sample collecti on, handling, and s torage procedures; nik hnical error. False ne gative results may occ ur if virus is presen t at levels below th e analytical limi t of detection (LOD: 131 copies/mL). Vir al nucleic acid ma y persist in vivo, indepe ndent of virus viability . Detection of an alyte target(s) does not imply that the corres ponding virus(es) are i nfectious or are the caus ative agents for clin ical symptoms. Recen t patient exposure to Flu Mist or other live atte nuated influenza vacci brittany may cause inaccurat e positive result s.This test has been a uthorized by FDA under an EUA for use by authoriz ed laboratories. T his test is only authori zed for the duration of the declaration gerson [...] Fact Sh eet for Healthcare Prov iders: https://www.[employer].Centaur/ Documents/Xpert %20Xpress %96SLPN-DtY-8-F siddhartha-RSV/30 2-4508%20Rev.%2 0B%20HCP% 20Fact%20Sheet. pdf Fact Sheet for Healt hcare Patients: https://www.[employer].Centaur/ Documents/Xpert %20Xpress %56AXLZ-ZfX-4-F siddahrtha-RSV/30 2-4507%20Rev.%2 0B%20Pati ent%20Fact%20Sh eet.pdf SARS-COV-2 SLSL Performed at:[facility] PERFORMING LAB Amy fine1317 (test code = Ignacio Nelson 70540-2) [place] [address] ph: [phone] [facility]omatic [facility]2020-09-22 12:08:00 Test Item Value Reference Range Interpretation Comments SARS-COV2/RT-PCR Negative Not Detected, Performanc e of the Xpert (test code = Negative, See Xpress 48623-0) external report SARS-CoV-2/F siddhartha/RSV test for linked test has only bee n established in nasopharyngeal swab specimens. Use of the Xpert Xpress SARS-CoV-2/Flu/ RSV test with other spec imen types has not b een assessed and pe rformance characteristics are unknown. As wit h any molecular test, mutations withi n the [...] or ot her patient managem ent decisions. Resu lts from the Xpert Xpres s SARS-CoV-2/Flu/ RSV test should be corre lated with the clinic al history, epidem iological data, and other data available to th e clinician evalu ating the patient. Invali d test results may occ ur from improper specim en collection; matilde lure to follow the brady mmended sample collecti on, handling, and s torage procedures; nik hnical error. False ne gative results may occ ur if virus is presen t at levels below th e analytical limi t of detection (LOD: 131 copies/mL). Vir al nucleic acid ma y persist in vivo, indepe ndent of virus viability . Detection of an alyte target(s) does not imply that the corres ponding virus(es) are i nfectious or are the caus ative agents for clin ical symptoms. Recen t patient exposure to Flu Mist or other live atte nuated influenza vacci brittany may cause inaccurat e positive result s.This test has been a uthorized by FDA under an EUA for use by authoriz ed laboratories. T his test is only authori zed for the duration of the declaration gerson [...] Fact Sh eet for Healthcare Prov iders: https://www.[employer].com/ Documents/Xpert %20Xpress %32DPMQ-NtO-6-F siddhartha-RSV/30 2-4508%20Rev.%2 0B%20HCP% 20Fact%20Sheet. pdf Fact Sheet for Healt hcare Patients: https://www.[employer].com/ Documents/Xpert %20Xpress %79RSUM-FcU-5-F siddhartha-RSV/30 2-4507%20Rev.%2 0B%20Pati ent%20Fact%20Sh eet.pdf SARS-COV-2 SLSL Performed at:[facility] PERFORMING LAB Amy fine1317 (test code = Ignacio Nelson 62811-9) [place] [address] ph: [phone]Asymptomatic ONLY)2020-09-22 12:08:00 Test Item Value Reference Range Interpretation Comments SARS-COV2/RT-PCR Negative Not Detected, Performanc e of the Xpert (test code = Negative, See Xpress 84153-8) external report SARS-CoV-2/F siddhartha/RSV test for linked test has only bee n established in nasopharyngeal swab specimens. Use of the Xpert Xpress SARS-CoV-2/Flu/ RSV test with other spec imen types has not b een assessed and pe rformance characteristics are unknown. As wit h any molecular test, mutations withi n the [...] or ot her patient managem ent decisions. Resu lts from the Xpert Xpres s SARS-CoV-2/Flu/ RSV test should be corre lated with the clinic al history, epidem iological data, and other data available to th e clinician evalu ating the patient. Invali d test results may occ ur from improper specim en collection; matilde lure to follow the brady mmended sample collecti on, handling, and s torage procedures; nik hnical error. False ne gative results may occ ur if virus is presen t at levels below th e analytical limi t of detection (LOD: 131 copies/mL). Vir al nucleic acid ma y persist in vivo, indepe ndent of virus viability . Detection of an alyte target(s) does not imply that the corres ponding virus(es) are i nfectious or are the caus ative agents for clin ical symptoms. Recen t patient exposure to Flu Mist or other live atte nuated influenza vacci brittany may cause inaccurat e positive result s.This test has been a uthorized by FDA under an EUA for use by authoriz [employer]. T his test is only authori zed for the duration of the declaration gerson [...] Fact Sh eet for Healthcare Prov iders: https://www.FuturaMedia/ Documents/Xpert %20Xpress %90REVP-DyE-9-F siddhartha-RSV/30 2-4508%20Rev.%2 0B%20HCP% 20Fact%20Sheet. pdf Fact Sheet for Healt hcare Patients: https://www.[employer]uturaMedia/ Documents/Xpert %20Xpress %20NUOX-UvE-3-F siddhartha-RSV/30 2-4507%20Rev.%2 0B%20Pati ent%20Fact%20Sh eet.pdf SARS-COV-2 SLSL Performed at:[facility] LAB [facility] (test code = Ignacio Nelson 43843-1) [place] [address] ph: [phone] [facility]Asymptomatic ONLY)2020-09-22 12:08:00 Test Item Value Reference Range Interpretation Comments SARS-COV2/RT-PCR Negative Not Detected, Performanc e of the Xpert (test code = Negative, See Xpress 52638-2) external report SARS-CoV-2/F siddhartha/RSV test for linked test has only bee n established in nasopharyngeal swab specimens. Use of the Xpert Xpress SARS-CoV-2/Flu/ RSV test with other spec imen types has not b een assessed and pe rformance characteristics are unknown. As wit h any molecular test, mutations withi n the [...] or ot her patient managem ent decisions. Resu lts from the Xpert Xpres s SARS-CoV-2/Flu/ RSV test should be corre lated with the clinic al history, epidem iological data, and other data available to th e clinician evalu ating the patient. Invali d test results may occ ur from improper specim en collection; matilde lure to follow the brady mmended sample collecti on, handling, and s torage procedures; nik hnical error. False ne gative results may occ ur if virus is presen t at levels below th e analytical limi t of detection (LOD: 131 copies/mL). Vir al nucleic acid ma y persist in vivo, indepe ndent of virus viability . Detection of an alyte target(s) does not imply that the corres ponding virus(es) are i nfectious or are the caus ative agents for clin ical symptoms. Recen t patient exposure to Flu Mist or other live atte nuated influenza vacci brittany may cause inaccurat e positive result s.This test has been a uthorized by FDA under an EUA for use by authoriz ed laboratories. T his test is only authori zed for the duration of the declaration gerson [...] Fact Sh eet for Healthcare Prov iders: https://www.[employer].Centaur/ Documents/Xpert %20Xpress %34YFJX-HkS-6-F siddhartha-RSV/30 2-4508%20Rev.%2 0B%20HCP% 20Fact%20Sheet. pdf Fact Sheet for Healt hcare Patients: https://www.[employer].Centaur/ Documents/Xpert %20Xpress %73MBOV-TtN-3-F siddhartha-RSV/30 2-4507%20Rev.%2 0B%20Pati ent%20Fact%20Sh eet.pdf SARS-COV-2 SLSL Performed at:[facility] PERFORMING LAB Amy fine1317 (test code = Ignacio Nelson 61894-7) [place] [address] ph: [phone] [facility])2020-09-22 12:08:00 Test Item Value Reference Range Interpretation Comments SARS-COV2/RT-PCR Negative Not Detected, Performanc e of the Xpert (test code = Negative, See Xpress 2751400) external report SARS-CoV-2/F siddhartha/RSV test for linked test has only bee n established in nasopharyngeal swab specimens. Use of the Xpert Xpress SARS-CoV-2/Flu/ RSV test with other spec imen types has not b een assessed and pe rformance characteristics are unknown. As wit h any molecular test, mutations withi n the [...] or ot her patient managem ent decisions. Resu lts from the Xpert Xpres s SARS-CoV-2/Flu/ RSV test should be corre lated with the clinic al history, epidem iological data, and other data available to th e clinician evalu ating the patient. Invali d test results may occ ur from improper specim en collection; matilde lure to follow the brady mmended sample collecti on, handling, and s torage procedures; nik hnical error. False ne gative results may occ ur if virus is presen t at levels below th e analytical limi t of detection (LOD: 131 copies/mL). Vir al nucleic acid ma y persist in vivo, indepe ndent of virus viability . Detection of an alyte target(s) does not imply that the corres ponding virus(es) are i nfectious or are the caus ative agents for clin ical symptoms. Recen t patient exposure to Flu Mist or other live atte nuated influenza vacci brittany may cause inaccurat e positive result s.This test has been a uthorized by FDA under an EUA for use by authoriz ed laboratories. T his test is only authori zed for the duration of the declaration gerson [...] sooner.Fact She et for Healthcare Prov iders: https://www.FuturaMedia/ Documents/Xpert %20Xpress %41TNZQ-FtY-8-F siddhartha-RSV/30 2-4508%20Rev.%2 0B%20HCP% 20Fact%20Sheet. pdfFact Sheet for Healt hcare Patients: https://www.[employer]uraMedia/ Documents/Xpert %20Xpress %26BENI-JtG-5-F siddhartha-RSV/30 2-4507%20Rev.%2 0B%20Pati ent%20Fact%20Sh eet.pdf SARS-COV-2 SLSL Performed at:[facility]ING LAB [facility] ([facility] = [facility] [id number][facility] [place], [place] [address]k h: [phone] CBC W/PLT COUNT & AUTO [id number] 07:40:00 Test Item Value Reference Range Interpretation [...] H PERCENT (BEAKER) (test code = 2801) [id number] 07:34:00 Test Item Value Reference Interpretation Comments [...] PTT (test code = 28.0 See_Comment Final 33278-9) Information (Auto Output) [Automated message] The system [...] valves. Lab Interpretation Abnormal (test code = 79940-4) [id number] [facility]00 Test Item Value Reference Interpretation Comments Range Protime (test code = 14.2 See_Comment H Final 5902-2) Information (Auto Output) [Automated message] The system which generated this result transmitted reference range : 9.3 - 12.0 seconds. The reference range was not used to interpret this result as normal/abnormal . INR (test code = 1.30 See_Comment Final 5551-6) Information (Auto Output) [Automated message] The system which generated this result transmitted reference range : <=5.90. The reference range was not used to interpret this result as normal/abnormal . PTT (test code = 28.0 See_Comment Final 72255-0) Information (Auto Output) [Automated message] The system [...] valves. Lab Interpretation Abnormal (test code = 16086-7) [facility][id number] 07:34:00 Test Item Value Reference Interpretation Comments [...] PTT (test code = 28.0 See_Comment Final 56000-5) Information (Auto Output) [Automated message] The system [...] valves. Lab Interpretation Abnormal (test code = 26083-8) [id number] 07:34:00 Test Item Value Reference Interpretation Comments [...] PTT (test code = 28.0 See_Comment Final 03313-7) Information (Auto Output) [Automated message] The system [...] valves. Lab Interpretation Abnormal (test code = 76164-7) [facility][id number] 07:34:00 Test Item Value Reference Interpretation Comments [...] PTT (test code = 28.0 See_Comment Final 96645-9) Information (Auto Output) [Automated message] The system [...] valves. Lab Interpretation Abnormal (test code = 27836-2) [facility][id number] 07:34:00 Test Item Value Reference Interpretation Comments [...] PTT (test code = 28.0 See_Comment Final 65223-6) Information (Auto Output) [Automated message] The system [...] valves. Lab Interpretation Abnormal (test code = 67828-7) [facility][id number] 07:34:00 Test Item Value Reference Interpretation Comments [...] PTT (test code = 28.0 See_Comment Final 51574-6) Information (Auto Output) [Automated message] The system [...] valves. Lab Interpretation Abnormal (test code = 42603-3) [id number] 07:34:00 Test Item Value Reference Range Interpretation Comments PROTIME (BEAKER) (test 14.2 seconds 9.3-12.0 H Final Information code = 759) (Auto Output) INR (BEAKER) (test 1.30 See_Comment Final Inf ormation code = 370) (Auto Output) [Automated mess age] The system [employer] generated this result transmit josé luis reference [...] patients with mechanical heart valves.B-TYPE NATRIURETIC FACTOR (BNP) 2020-09-22 07:30:00 Test Item Value Reference Range Interpretation Comments B-TYPE NATRIURETIC PEPTIDE 1703 pg/mL 0-100 H (CECILIO) (test code = 700) [employer] ID - [id number] 07:29:00 Test Item Value Reference Range Interpretation Comments Troponin I (test code = 0.05 ng/mL 0-0.15 01774-4) ISSA (test code = ISSA) Troponin I [...] failure, acidosis, acute neurological disease, and persistent tachyarrhythmia.[facility] ID - [id number] Lab Interpretation (test Normal code = 65967-1) [facility] [id number] 07:29:00 Test Item Value Reference Range Interpretation Comments Troponin I (test code = 0.05 ng/mL 0-0.15 23207-6) ISSA (test code = ISSA) Troponin I [...] failure, acidosis, acute neurological disease, and persistent tachyarrhythmia.[facility] ID - [id number] Lab Interpretation (test Normal code = 91715-2) [facility] [id number] 07:29:00 Test Item Value Reference Range Interpretation Comments Troponin I (test code = 0.05 ng/mL 0-0.15 90076-5) ISSA (test code = ISSA) Troponin I [...] failure, acidosis, acute neurological disease, and persistent tachyarrhythmia.[facility] ID - [id number] Lab Interpretation (test Normal code = 92613-5) [facility] [id number] 07:29:00 Test Item Value Reference Range Interpretation Comments Troponin I (test code = 0.05 ng/mL 0-0.15 33002-3) ISSA (test code = ISSA) Troponin I [...] failure, acidosis, acute neurological disease, and persistent tachyarrhythmia.[facility] ID - [id number] Lab Interpretation (test Normal code = 61847-9) [facility] [id number] 07:29:00 Test Item Value Reference Range Interpretation Comments Troponin I (test code = 0.05 ng/mL 0.00-0.15 51529-8) ISSA (test code = ISSA) Troponin I [...] failure, acidosis, acute neurological disease, and persistent tachyarrhythmia.[facility] ID - [id number] Lab Interpretation (test Normal code = 95862-3) [facility] [id number] 07:29:00 Test Item Value Reference Range Interpretation Comments Troponin I (test code = 0.05 ng/mL 0.00-0.15 77420-2) ISSA (test code = ISSA) Troponin I [...] failure, acidosis, acute neurological disease, and persistent tachyarrhythmia.[facility] ID - [id number] Lab Interpretation (test Normal code = 41482-5) [facility] [id number] 07:29:00 Test Item Value Reference Range Interpretation Comments Troponin I (test code = 0.05 ng/mL 0.00-0.15 27888-1) ISSA (test code = ISSA) Troponin I [...] failure, acidosis, acute neurological disease, and persistent tachyarrhythmia.[facility] ID - [id number] Lab Interpretation (test Normal code = 77434-8) [facility] [id number] 07:29:00 Test Item Value Reference Range Interpretation [...] failure, acidosis, acute neurological disease, and persistent tachyarrhythmia.[employer] ID - [id number] METABOLIC [id number] 07:25:00 Test Item Value Reference Range Interpretation [...] S NOT APPLICABLE FOR DIALYSIS PATIEN TS. 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 [...] Signed: Moose Petersen Verified Date/Time: 09/22/2020 06:44:53 XR chest 1 view portable / [id number] 06:44:00Interface, External Ris In - 09/22/2020 6:47 AM CDTFINAL REPORT Chest one view. Clinical history: Chest and shortness of breath. Comparison: Chest radiograph 07/15/2019. Technique: A single frontal view of the chest was obtained. Findings:There is a left-sided pacemaker with leads over in the right atrium and right ventricle.The cardiac silhouette is mildly enlarged. There are athe rosclerotic calcifications of the aortic knob. There is pulmonary vascular congestion and a small left pleural effusion. There is no pneumothorax. The osseous structures are unremarkable. Impression: Pulmonary vascular congestion and small left pleural effusion. No pneumothorax.Mild cardiomegaly. Signed: Moose Petersen Verified Date/Time: 09/22/2020 06:44:53 [facility] / [id number] 06:44:00Interface, External Ris In - 09/22/2020 6:47 AM CDTFINAL REPORT Chest one view. Clinical history: Chest and shortness of breath. Comparison: Chest radiograph 07/15/2019. Technique: A single frontal view of the chest was obtained. Findings:There is a left-sided pacemaker with leads over in the right atrium and right ventricle.The cardiac silhouette is mildly enlarged. There are athe rosclerotic calcifications of the aortic knob. There is pulmonary vascular congestion and a small left pleural effusion. There is no pneumothorax. The osseous structures are unremarkable. Impression: Pulmonary vascular congestion and small left pleural effusion. No pneumothorax.Mild cardiomegaly. Signed: Moose Petersen Verified Date/Time: 09/22/2020 06:44:53 [facility] / [id number] 06:44:00Interface, External Ris In - 09/22/2020 6:47 AM CDTFINAL REPORT Chest one view. Clinical history: Chest and shortness of breath. Comparison: Chest radiograph 07/15/2019. Technique: A single frontal view of the chest was obtained. Findings:There is a left-sided pacemaker with leads over in the right atrium and right ventricle.The cardiac silhouette is mildly enlarged. There are athe rosclerotic calcifications of the aortic knob. There is pulmonary vascular congestion and a small left pleural effusion. There is no pneumothorax. The osseous structures are unremarkable. Impression: Pulmonary vascular congestion and small left pleural effusion. No pneumothorax.Mild cardiomegaly. Signed: Moose Petersen Verified Date/Time: 09/22/2020 06:44:53 [facility] / [id number] 06:44:00Interface, External Ris In - 09/22/2020 6:47 AM CDTFINAL REPORT Chest one view. Clinical history: Chest and shortness of breath. Comparison: Chest radiograph 07/15/2019. Technique: A single frontal view of the chest was obtained. Findings:There is a left-sided pacemaker with leads over in the right atrium and right ventricle.The cardiac silhouette is mildly enlarged. There are athe rosclerotic calcifications of the aortic knob. There is pulmonary vascular congestion and a small left pleural effusion. There is no pneumothorax. The osseous structures are unremarkable. Impression: Pulmonary vascular congestion and small left pleural effusion. No pneumothorax.Mild cardiomegaly. Signed: Moose Petersen Verified Date/Time: 09/22/2020 06:44:53 [facility] [id number] 06:40:53 Test Item Value Reference Range Interpretation [...] 74 BPM.Abnormal conduction noted: LAFB.T waves abnormal. [place] is normal. Other findings include: prolonged QTc interval. Clinical Impression: abnormal ECG Lab Interpretation Abnormal (test code = 92926-0) [facility] Gsighgdsokemzk5634-90-57 06:40:53 Test Item Value Reference Range Interpretation [...] 74 BPM.Abnormal conduction noted: LAFB.T waves abnormal. [place] is normal. Other findings include: prolonged QTc interval. Clinical Impression: abnormal ECG Lab Interpretation Abnormal (test code = 07955-8) [facility] Kajvdbwqggbyay2872-34-47 06:40:53 Test Item Value Reference Range Interpretation [...] 74 BPM.Abnormal conduction noted: LAFB.T waves abnormal. [place] is normal. Other findings include: prolonged QTc interval. Clinical Impression: abnormal ECG Lab Interpretation Abnormal (test code = 73309-2) [facility] Xovbjsrccqxmlp1370-63-40 06:40:53 Test Item Value Reference Range Interpretation [...] 74 BPM.Abnormal conduction noted: LAFB.T waves abnormal. [place] is normal. Other findings include: prolonged QTc interval. Clinical Impression: abnormal ECG Lab Interpretation Abnormal (test code = 59755-8) [facility] Yoblgmweltylej9863-74-93 06:40:53 Test Item Value Reference Range Interpretation [...] 74 BPM.Abnormal conduction noted: LAFB.T waves abnormal. [place] is normal. Other findings include: prolonged QTc interval. Clinical Impression: abnormal ECG Lab Interpretation Abnormal (test code = 09349-3) [facility] Gvurdurilbyohy6977-69-03 06:40:53 Test Item Value Reference Range Interpretation [...] 74 BPM.Abnormal conduction noted: LAFB.T waves abnormal. [place] is normal. Other findings include: prolonged QTc interval. Clinical Impression: abnormal ECG Lab Interpretation Abnormal (test code = 94042-6) [facility] Ctzqxglvhbahhm5357-90-06 06:40:53 Test Item Value Reference Range Interpretation [...] 74 BPM.Abnormal conduction noted: LAFB.T waves abnormal. [place] is normal. Other findings include: prolonged QTc interval. Clinical Impression: abnormal ECG Lab Interpretation Abnormal (test code = 43953-7) [id number] 00:00:00Ordered by an unspecified provider.[facility][id number] 00:00:00 Ordered by an unspecified provider.[facility] 2020-09-22 00:00:00Ordered by an unspecified provider.[facility][id number] 00:00:00Ordered by an unspecified provider.[facility]: Natriuretic peptide B [Mass/volume] in Serum or [id number] 15:06:00 Test Item Value Reference Range Interpretation Comments B-Type Natriuretic Peptide (test 614.6 pg/mL 0.0-100.0 H code = 37608-9) [facility]: Natriuretic peptide B [Mass/volume] in Serum or [id number] 15:06:00 Test Item Value Reference Range Interpretation Comments B-Type Natriuretic Peptide (test 614.6 pg/mL 0.0-100.0 H code = 58067-6) [facility]: Natriuretic peptide B [Mass/volume] in Serum or [id number] 15:06:00 Test Item Value Reference Range Interpretation Comments B-Type Natriuretic Peptide (test 614.6 pg/mL 0.0-100.0 H code = 25800-4) [facility] Description: Natriuretic peptide B [Mass/volume] in Serum or [id number] 15:06:00 Test Item Value Reference Range Interpretation Comments B-Type Natriuretic Peptide (test 614.6 pg/mL 0.0-100.0 H code = 98646-7) [facility] Description: Natriuretic peptide B [Mass/volume] in Serum or [id number] 15:06:00 Test Item Value Reference Range Interpretation Comments B-Type Natriuretic Peptide (test 614.6 pg/mL 0.0-100.0 H code = 33882-4) [facility] Description: Natriuretic peptide B [Mass/volume] in Serum or [id number] 15:06:00 Test Item Value Reference Range Interpretation Comments B-Type Natriuretic Peptide (test 614.6 pg/mL 0.0-100.0 H code = 71693-6) [facility]: Natriuretic peptide B [Mass/volume] in Serum or Qfgjel0365-56-64 15:06:00 Test Item Value Reference Range Interpretation Comments B-Type Natriuretic Peptide (test 614.6 pg/mL 0.0-100.0 H code = 00344-0) [facility] Description: Natriuretic peptide B [Mass/volume] in Serum or [id number] 15:06:00 Test Item Value Reference Range Interpretation Comments B-Type Natriuretic Peptide (test 614.6 pg/mL 0.0-100.0 H code = 43972-5) [facility] Description: Natriuretic peptide B [Mass/volume] in Serum or [id number] 15:06:00 Test Item Value Reference Range Interpretation Comments B-Type Natriuretic Peptide (test 614.6 pg/mL 0.0-100.0 H code = 23326-4) [facility] Description: Natriuretic peptide B [Mass/volume] in Serum or Rjbdxy8613-00-86 15:06:00 Test Item Value Reference Range Interpretation Comments B-Type Natriuretic Peptide (test 614.6 pg/mL 0.0-100.0 H code = 51573-4) [facility] Description: Natriuretic peptide B [Mass/volume] in Serum or Keaxqy1033-98-50 15:06:00 Test Item Value Reference Range Interpretation Comments B-Type Natriuretic Peptide (test 614.6 pg/mL 0.0-100.0 H code = 99616-2) [facility] Description: Natriuretic peptide B [Mass/volume] in Serum or Ekluhu3316-08-31 15:06:00 Test Item Value Reference Range Interpretation Comments B-Type Natriuretic Peptide (test 614.6 pg/mL 0.0-100.0 H code = 51143-0) [facility] Description: Natriuretic peptide B [Mass/volume] in Serum or Iekukx6315-47-27 15:06:00 Test Item Value Reference Range Interpretation Comments B-Type Natriuretic Peptide (test 614.6 pg/mL 0.0-100.0 H code = 45257-6) [facility] Description: Natriuretic peptide B [Mass/volume] in Serum or [id number] 15:06:00 Test Item Value Reference Range Interpretation Comments B-Type Natriuretic Peptide (test 614.6 pg/mL 0.0-100.0 H code = 92691-5) [facility] Description: Natriuretic peptide B [Mass/volume] in Serum or Vyrulc6203-79-79 15:06:00 Test Item Value Reference Range Interpretation Comments B-Type Natriuretic Peptide (test 614.6 pg/mL 0.0-100.0 H code = 84324-4) [facility] Description: Natriuretic peptide B [Mass/volume] in Serum or Iysxgy6452-39-51 15:06:00 Test Item Value Reference Range Interpretation Comments B-Type Natriuretic Peptide (test 614.6 pg/mL 0.0-100.0 H code = 57739-7) [facility] Description: Natriuretic peptide B [Mass/volume] in Serum or Qynezr5084-16-53 15:06:00 Test Item Value Reference Range Interpretation Comments B-Type Natriuretic Peptide (test 614.6 pg/mL 0.0-100.0 H code = 38280-0) [facility] Description: Natriuretic peptide B [Mass/volume] in Serum or Kacwmk4461-76-82 15:06:00 Test Item Value Reference Range Interpretation Comments B-Type Natriuretic Peptide (test 614.6 pg/mL 0.0-100.0 H code = 21322-7) [facility] Description: Natriuretic peptide B [Mass/volume] in Serum or [id number] 15:06:00 Test Item Value Reference Range Interpretation Comments B-Type Natriuretic Peptide (test 614.6 pg/mL 0.0-100.0 H code = 66193-5) [facility] Description: Natriuretic peptide B [Mass/volume] in Serum or Iansja3289-44-50 15:06:00 Test Item Value Reference Range Interpretation Comments B-Type Natriuretic Peptide (test 614.6 pg/mL 0.0-100.0 H code = 27158-2) [facility] Description: Natriuretic peptide B [Mass/volume] in Serum or Tynbzs3960-66-89 15:06:00 Test Item Value Reference Range Interpretation Comments B-Type Natriuretic Peptide (test 614.6 pg/mL 0.0-100.0 H code = 67613-0) [facility] Description: Natriuretic peptide B [Mass/volume] in Serum or Leqzwo1965-76-06 15:06:00 Test Item Value Reference Range Interpretation Comments B-Type Natriuretic Peptide (test 614.6 pg/mL 0.0-100.0 H code = 36078-2) [facility] Description: Lipid [id number] 01:45:00 Test Item Value Reference Range Interpretation Comments Cholesterol, Total (test code = 207 mg/dL 100-199 H 2093-3) Triglycerides (test code = 2571-8) 126 mg/dL 0-149 HDL Cholesterol (test code = 37 mg/dL >39 L 5-9) VLDL Cholesterol Renuka (test code = 23 mg/dL 5-40 10751-1) LDL Chol Calc (NIH) (test code = 147 mg/dL 0-99 H 42120-1) Comment: (test code = 67348-5) [employer] Description: Lipid [id number] 01:45:00 Test Item Value Reference Range Interpretation Comments Cholesterol, Total (test code = 207 mg/dL 100-199 H 2093-3) Triglycerides (test code = 2571-8) 126 mg/dL 0-149 HDL Cholesterol (test code = 37 mg/dL >39 L 5-9) VLDL Cholesterol [place] (test code = 23 mg/dL 5-40 06780-2) LDL Chol Calc (NIH) (test code = 147 mg/dL 0-99 H 00043-7) Comment: (test code = 36336-3) [facility] Description: Lipid [id number] 01:45:00 Test Item Value Reference Range Interpretation Comments Cholesterol, Total (test code = 207 mg/dL 100-199 H 3-3) Triglycerides (test code = 2571-8) 126 mg/dL 0-149 HDL Cholesterol (test code = 37 mg/dL >39 L 5-9) VLDL Cholesterol [place]uka (test code = 23 mg/dL 5-40 25043-1) LDL Chol Calc (NIH) (test code = 147 mg/dL 0-99 H 86863-5) Comment: (test code = 69295-3) [employer] [facility] Description: Lipid [id number] 01:45:00 Test Item Value Reference Range Interpretation Comments Cholesterol, Total (test code = 207 mg/dL 100-199 H 3-3) Triglycerides (test code = 2571-8) 126 mg/dL 0-149 HDL Cholesterol (test code = 37 mg/dL >39 L 5-9) VLDL Cholesterol [place] (test code = 23 mg/dL 5-40 76896-6) LDL Chol Calc (NIH) (test code = 147 mg/dL 0-99 H 53363-0) Comment: (test code = 35842-7) [employer] Description: Lipid [id number] 01:45:00 Test Item Value Reference Range Interpretation Comments Cholesterol, Total (test code = 207 mg/dL 100-199 H 3-3) Triglycerides (test code = 2571-8) 126 mg/dL 0-149 HDL Cholesterol (test code = 37 mg/dL >39 L 5-9) VLDL Cholesterol [place] (test code = 23 mg/dL 5-40 91263-7) LDL Chol Calc (NIH) (test code = 147 mg/dL 0-99 H 30263-9) Comment: (test code = 26662-7) [employer] Description: Lipid [id number] 01:45:00 Test Item Value Reference Range Interpretation Comments Cholesterol, Total (test code = 207 mg/dL 100-199 H 3-3) Triglycerides (test code = 2571-8) 126 mg/dL 0-149 HDL Cholesterol (test code = 37 mg/dL >39 L 2084-9) VLDL Cholesterol Renuka (test code = 23 mg/dL 5-40 29269-9) LDL Chol Calc (NIH) (test code = 147 mg/dL 0-99 H 26599-3) Comment: (test code = 37672-4) [employer] [facility] Description: Lipid [id number] 01:45:00 Test Item Value Reference Range Interpretation Comments Cholesterol, Total (test code = 207 mg/dL 100-199 H 3-3) Triglycerides (test code = 2571-8) 126 mg/dL 0-149 HDL Cholesterol (test code = 37 mg/dL >39 L 2084-9) VLDL Cholesterol [place] (test code = 23 mg/dL 5-40 16392-1) LDL Chol Calc (NIH) (test code = 147 mg/dL 0-99 H 43515-5) Comment: (test code = 95579-3) [facility] Description: Lipid [id number] 01:45:00 Test Item Value Reference Range Interpretation Comments Cholesterol, Total (test code = 207 mg/dL 100-199 H 3-3) Triglycerides (test code = 2571-8) 126 mg/dL 0-149 HDL Cholesterol (test code = 37 mg/dL >39 L 5-9) VLDL Cholesterol [place] (test code = 23 mg/dL 5-40 69818-5) LDL Chol Calc (NIH) (test code = 147 mg/dL 0-99 H 51587-5) Comment: (test code = 09235-0) [employer] Description: Lipid [id number] 01:45:00 Test Item Value Reference Range Interpretation Comments Cholesterol, Total (test code = 207 mg/dL 100-199 H 2093-3) Triglycerides (test code = 2571-8) 126 mg/dL 0-149 HDL Cholesterol (test code = 37 mg/dL >39 L 2085-9) VLDL Cholesterol [place] (test code = 23 mg/dL 5-40 13722-5) LDL Chol Calc (NIH) (test code = 147 mg/dL 0-99 H 56013-6) Comment: (test code = 58206-6) [employer] Description: Lipid [id number] 01:45:00 Test Item Value Reference Range Interpretation Comments Cholesterol, Total (test code = 207 mg/dL 100-199 H 2093-3) Triglycerides (test code = 2571-8) 126 mg/dL 0-149 HDL Cholesterol (test code = 37 mg/dL >39 L 2085-9) VLDL Cholesterol [place] (test code = 23 mg/dL 5-40 43774-2) LDL Chol Calc (NIH) (test code = 147 mg/dL 0-99 H 18672-1) Comment: (test code = 71390-9) [facility] Description: Lipid [id number] 01:45:00 Test Item Value Reference Range Interpretation Comments Cholesterol, Total (test code = 207 mg/dL 100-199 H 2093-3) Triglycerides (test code = 2571-8) 126 mg/dL 0-149 HDL Cholesterol (test code = 37 mg/dL >39 L 2085-9) VLDL Cholesterol [place] (test code = 23 mg/dL 5-40 17824-7) LDL Chol Calc (NIH) (test code = 147 mg/dL 0-99 H 32035-0) Comment: (test code = 66694-8) [facility] Description: Lipid [id number] 01:45:00 Test Item Value Reference Range Interpretation Comments Cholesterol, Total (test code = 207 mg/dL 100-199 H 2093-3) Triglycerides (test code = 2571-8) 126 mg/dL 0-149 HDL Cholesterol (test code = 37 mg/dL >39 L 2085-9) VLDL Cholesterol [place] (test code = 23 mg/dL 5-40 16468-3) LDL Chol Calc (NIH) (test code = 147 mg/dL 0-99 H 38343-3) Comment: (test code = 22806-4) [facility] Description: Lipid [id number] 01:45:00 Test Item Value Reference Range Interpretation Comments Cholesterol, Total (test code = 207 mg/dL 100-199 H 2093-3) Triglycerides (test code = 2571-8) 126 mg/dL 0-149 HDL Cholesterol (test code = 37 mg/dL >39 L 5-9) VLDL Cholesterol [place] (test code = 23 mg/dL 5-40 70553-1) LDL Chol Calc (NIH) (test code = 147 mg/dL 0-99 H 37954-2) Comment: (test code = 18996-1) [facility] Description: Lipid [id number] 01:45:00 Test Item Value Reference Range Interpretation Comments Cholesterol, Total (test code = 207 mg/dL 100-199 H 2093-3) Triglycerides (test code = 2571-8) 126 mg/dL 0-149 HDL Cholesterol (test code = 37 mg/dL >39 L 5-9) VLDL Cholesterol [place] (test code = 23 mg/dL 5-40 70891-3) LDL Chol Calc (NIH) (test code = 147 mg/dL 0-99 H 69339-3) Comment: (test code = 35141-2) [facility] Description: Lipid [id number] 01:45:00 Test Item Value Reference Range Interpretation Comments Cholesterol, Total (test code = 207 mg/dL 100-199 H 2093-3) Triglycerides (test code = 2571-8) 126 mg/dL 0-149 HDL Cholesterol (test code = 37 mg/dL >39 L 5-9) VLDL Cholesterol [place] (test code = 23 mg/dL 5-40 77383-9) LDL Chol Calc (NIH) (test code = 147 mg/dL 0-99 H 49408-5) Comment: (test code = 23238-6) [facility] Description: Lipid [id number] 01:45:00 Test Item Value Reference Range Interpretation Comments Cholesterol, Total (test code = 207 mg/dL 100-199 H 2093-3) Triglycerides (test code = 2571-8) 126 mg/dL 0-149 HDL Cholesterol (test code = 37 mg/dL >39 L 2085-9) VLDL Cholesterol [place] (test code = 23 mg/dL 5-40 68419-1) LDL Chol Calc (NIH) (test code = 147 mg/dL 0-99 H 70915-9) Comment: (test code = 15003-5) [facility] Description: Lipid [id number] 01:45:00 Test Item Value Reference Range Interpretation Comments Cholesterol, Total (test code = 207 mg/dL 100-199 H 3-3) Triglycerides (test code = 2571-8) 126 mg/dL 0-149 HDL Cholesterol (test code = 37 mg/dL >39 L 5-9) VLDL Cholesterol [place] (test code = 23 mg/dL 5-40 92349-5) LDL Chol Calc (NIH) (test code = 147 mg/dL 0-99 H 57856-2) Comment: (test code = 31459-2) [facility] Description: Lipid [id number] 01:45:00 Test Item Value Reference Range Interpretation Comments Cholesterol, Total (test code = 207 mg/dL 100-199 H 3-3) Triglycerides (test code = 2571-8) 126 mg/dL 0-149 HDL Cholesterol (test code = 37 mg/dL >39 L 5-9) VLDL Cholesterol Ren[place] (test code = 23 mg/dL 5-40 67933-3) LDL Chol Calc (NIH) (test code = 147 mg/dL 0-99 H 98385-4) Comment: (test code = 67911-0) [facility] Description: Lipid [id number] 01:45:00 Test Item Value Reference Range Interpretation Comments Cholesterol, Total (test code = 207 mg/dL 100-199 H 3-3) Triglycerides (test code = 2571-8) 126 mg/dL 0-149 HDL Cholesterol (test code = 37 mg/dL >39 L 5-9) VLDL Cholesterol [place] (test code = 23 mg/dL 5-40 03682-3) LDL Chol Calc (NIH) (test code = 147 mg/dL 0-99 H 35791-4) Comment: (test code = 82392-6) [facility] Description: Lipid [id number] 01:45:00 Test Item Value Reference Range Interpretation Comments Cholesterol, Total (test code = 207 mg/dL 100-199 H 3-3) Triglycerides (test code = 2571-8) 126 mg/dL 0-149 HDL Cholesterol (test code = 37 mg/dL >39 L 5-9) VLDL Cholesterol [place] (test code = 23 mg/dL 5-40 51982-5) LDL Chol Calc (NIH) (test code = 147 mg/dL 0-99 H 11517-0) Comment: (test code = 75495-0) [facility] Description: Lipid [id number] 01:45:00 Test Item Value Reference Range Interpretation Comments Cholesterol, Total (test code = 207 mg/dL 100-199 H 3-3) Triglycerides (test code = 2571-8) 126 mg/dL 0-149 HDL Cholesterol (test code = 37 mg/dL >39 L 5-9) VLDL Cholesterol [place] (test code = 23 mg/dL 5-40 73883-2) LDL Chol Calc (NIH) (test code = 147 mg/dL 0-99 H 87704-1) Comment: (test code = 61929-8) [facility] Description: Lipid [id number] 01:45:00 Test Item Value Reference Range Interpretation Comments Cholesterol, Total (test code = 207 mg/dL 100-199 H 3-3) Triglycerides (test code = 2571-8) 126 mg/dL 0-149 HDL Cholesterol (test code = 37 mg/dL >39 L 5-9) VLDL Cholesterol [place] (test code = 23 mg/dL 5-40 49953-3) LDL Chol Calc (NIH) (test code = 147 mg/dL 0-99 H 95730-8) Comment: (test code = 34165-5) [facility] Description: Comp. Metabolic Panel (14)2020-08-16 01:19:00 Test Item Value Reference Range Interpretation Comments Glucose (test code 424 mg/dL 65-99 H = 2345-7) BUN (test code = 27 mg/dL 6-24 H 3094-0) Creatinine (test 1.88 mg/dL 0.76-1.27 H code = 2160-0) eGFR If NonAfricn 42 >59 L Am (test code = mL/min/1.73 21855-6) eGFR If Africn Am 48 >59 L [facility] currently (test code = mL/min/1[place]73 [place] [address]-9) compliance with the current recommendations of the [employer]. [place] will update rep orting as new guidelin es are published from the NKF-ASN Task force.
<br/ >Perfor med by:
[facility] [place] [facility]aur (HD)

BUN/Creatinine 14 9-20 Ratio (test code = 3097-3) Sodium (test code = 138 mmol/L 877-079 3254-2) Potassium (test 4.2 mmol/L 3.5-5.2 code = 2823-3) Chloride (test code 98 mmol/L 96-106 = 2075-0) Carbon Dioxide, 28 mmol/L 20-29 Total (test code = 2027-) Calcium (test code 8.4 mg/dL 8.7-10.2 L = 69974-0) Protein, Total 6.1 g/dL 6.0-8.5 (test code = 2885-2) Albumin (test code 3.0 g/dL 4.0-5.0 L = 1751-7) Globulin, Total 3.1 g/dL 1.5-4.5 (test code = 03530-5) A/G Ratio (test 1.0 1.2-2.2 L code = 1759-0) Bilirubin, Total 0.6 mg/dL 0.0-1.2 (test code = 1975-2) Alkaline 130 IU/L 48-121 H Please note Phosphatase (test reference interval code = 6768-6) change

Perf ormed by:
[facility] (HD)

AST [...] >59 L Am (test code = mL/min/1.73 66781-3) eGFR If Africn Am 48 >59 L [facility] currently (test code = mL/min/1.73 [place] 04239-3) compliance with the current recommendations of the [employer]. [place] will update rep orting as new guidelin es are published from the NKF-ASN Task force.
<br/ >Perfor med by:
[facility] [place] [facility] (HD)

BUN/Creatinine 14 9-20 Ratio (test code = 3097-3) Sodium (test code = 138 mmol/L 299-682 2837-2) Potassium (test 4.2 mmol/L 3.5-5.2 code = 2823-3) Chloride (test code 98 mmol/L 96-106 = 2075-0) Carbon Dioxide, 28 mmol/L 20-29 Total (test code = 2027-9) Calcium (test code 8.4 mg/dL 8.7-10.2 L = 81329-1) Protein, Total 6.1 g/dL 6.0-8.5 (test code = 2885-2) Albumin (test code 3.0 g/dL 4.0-5.0 L = 1751-7) Globulin, Total 3.1 g/dL 1.5-4.5 (test code = 61331-0) A/G Ratio (test 1.0 1.2-2.2 L code = 1759-0) Bilirubin, Total 0.6 mg/dL 0.0-1.2 (test code = 1975-2) Alkaline 130 IU/L 48-121 H Please note Phosphatase (test reference interval code = 6768-6) change

Perf ormed by:
[facility] (HD)

AST [...] >59 L Am (test code = mL/min/1.73 23610-9) eGFR If Africn Am 48 >59 L [facility] currently (test code = mL/min/1.73 [place] 18521-8) compliance with the current recommendations of the [employer]. [place] will update rep orting as new guidelin es are published from the NKF-ASN Task force.
<br/ >Perfor med by:
[facility] [place] [facility] (HD)

BUN/Creatinine 14 9-20 Ratio (test code = 3097-3) Sodium (test code = 138 mmol/L 684-687 6386-2) Potassium (test 4.2 mmol/L 3.5-5.2 code = 2823-3) Chloride (test code 98 mmol/L 96-106 = 2075-0) Carbon Dioxide, 28 mmol/L 20-29 Total (test code = 2027-) Calcium (test code 8.4 mg/dL 8.7-10.2 L = 35227-9) Protein, Total 6.1 g/dL 6.0-8.5 (test code = 2885-2) Albumin (test code 3.0 g/dL 4.0-5.0 L = 1751-7) Globulin, Total 3.1 g/dL 1.5-4.5 (test code = 88350-5) A/G Ratio (test 1.0 1.2-2.2 L code = 1759-0) Bilirubin, Total 0.6 mg/dL 0.0-1.2 (test code = 1975-2) Alkaline 130 IU/L 48-121 H Please note Phosphatase (test reference interval code = 6768-6) change

Perf ormed by:
[facility] (HD)

AST [...] >59 L Am (test code = mL/min/1.73 71765-5) eGFR If Africn Am 48 >59 L [facility] currently (test code = mL/min/1.73 reports eGFR [place] 00224-0) compliance with the current recommendations of the [employer]. [place] will update rep orting as new guidelin es are published from the NKF-ASN Task force.
<br/ >Perfor med by:
[facility] [place] (HD)

BUN/Creatinine 14 9-20 Ratio (test code = 3097-3) Sodium (test code = 138 mmol/L 212-884 0903-2) Potassium (test 4.2 mmol/L 3.5-5.2 code = 2823-3) Chloride (test code 98 mmol/L 96-106 = 5-0) Carbon Dioxide, 28 mmol/L 20-29 Total (test code = 2027-) Calcium (test code 8.4 mg/dL 8.7-10.2 L = 87725-7) Protein, Total 6.1 g/dL 6.0-8.5 (test code = 2885-2) Albumin (test code 3.0 g/dL 4.0-5.0 L = 1751-7) Globulin, Total 3.1 g/dL 1.5-4.5 (test code = 52686-1) A/G Ratio (test 1.0 1.2-2.2 L code = 1759-0) Bilirubin, Total 0.6 mg/dL 0.0-1.2 (test code = 1975-2) Alkaline 130 IU/L 48-121 H Please note Phosphatase (test reference interval code = 6768-6) change

Perf ormed by:
[facility] (HD)

AST [...] >59 L Am (test code = mL/min/1.73 23586-3) eGFR If Africn Am 48 >59 L [facility] currently (test code = mL/min/1.73 [place] [address]87-2) compliance with the current recommendations of the [employer]. [place] will update rep orting as new guidelin es are published from the NKF-ASN Task force.
<br/ >Perfor med by:
[facility] [place] (HD)

BUN/Creatinine 14 9-20 Ratio (test code = 3097-3) Sodium (test code = 138 mmol/L 609-739 1616-2) Potassium (test 4.2 mmol/L 3.5-5.2 code = 2823-3) Chloride (test code 98 mmol/L 96-106 = 5-0) Carbon Dioxide, 28 mmol/L 20-29 Total (test code = 2027-) Calcium (test code 8.4 mg/dL 8.7-10.2 L = 07219-8) Protein, Total 6.1 g/dL 6.0-8.5 (test code = 2885-2) Albumin (test code 3.0 g/dL 4.0-5.0 L = 1751-7) Globulin, Total 3.1 g/dL 1.5-4.5 (test code = 75730-4) A/G Ratio (test 1.0 1.2-2.2 L code = 1759-0) Bilirubin, Total 0.6 mg/dL 0.0-1.2 (test code = 1975-2) Alkaline 130 IU/L 48-121 H Please note Phosphatase (test reference interval code = 6768-6) change

Perf ormed by:
[facility] (HD)

AST [...] >59 L Am (test code = mL/min/1.73 37862-2) eGFR If Africn Am 48 >59 L [facility] currently (test code = mL/min/1.73 [place] 92329-7) compliance with the current recommendations of the [employer]. [facility] [place] will update rep orting as new guidelin es are published from the NKF-ASN Task force.
<br/ >Perfor med by:
[facility] [place] [facility] (HD)

BUN/Creatinine 14 9-20 Ratio (test code = 3097-3) Sodium (test code = 138 mmol/L 355-107 4875-2) Potassium (test 4.2 mmol/L 3.5-5.2 code = 2823-3) Chloride (test code 98 mmol/L 96-106 = 2075-0) Carbon Dioxide, 28 mmol/L 20-29 Total (test code = 2027-) Calcium (test code 8.4 mg/dL 8.7-10.2 L = 58838-6) Protein, Total 6.1 g/dL 6.0-8.5 (test code = 2885-2) Albumin (test code 3.0 g/dL 4.0-5.0 L = 1751-7) Globulin, Total 3.1 g/dL 1.5-4.5 (test code = 69697-0) A/G Ratio (test 1.0 1.2-2.2 L code = 1759-0) Bilirubin, Total 0.6 mg/dL 0.0-1.2 (test code = 1975-2) Alkaline 130 IU/L 48-121 H Please note Phosphatase (test reference interval code = 6768-6) change

Perf ormed by:
L [facility] Kaur ([place])

AST (SGOT) (test 15 IU/L [...] >59 L Am (test code = mL/min/1.73 66127-4) eGFR If Afric[place] Am 48 >59 L [facility] currently (test code = mL/min/1.73 [place] [address]-6) compliance with the current recommendations of the [employer]. [facility] [place] will update rep orting as new guidelin es are published from the NKF-ASN Task force.
<br/ >Perfor med by:
[facility] [place] ([place])

BUN/Creatinine 14 9-20 Ratio (test code = 3097-3) Sodium (test code = 138 mmol/L 166-556 2729-2) Potassium (test 4.2 mmol/L 3.5-5.2 code = 2823-3) Chloride (test code 98 mmol/L 96-106 = 2075-0) Carbon Dioxide, 28 mmol/L 20-29 Total (test code = 2027-) Calcium (test code 8.4 mg/dL 8.7-10.2 L = 36944-0) Protein, Total 6.1 g/dL 6.0-8.5 (test code = 2885-2) Albumin (test code 3.0 g/dL 4.0-5.0 L = 1751-7) Globulin, Total 3.1 g/dL 1.5-4.5 (test code = 36449-0) A/G Ratio (test 1.0 1.2-2.2 L code = 1759-0) Bilirubin, Total 0.6 mg/dL 0.0-1.2 (test code = 1975-2) Alkaline 130 IU/L 48-121 H Please note Phosphatase (test reference interval code = 6768-6) change

Perf ormed by:
[facility] ([place])

AST [...] >59 L Am (test code = mL/min/1.73 74399-5) eGFR If Africn Am 48 >59 L [facility] currently (test code = mL/min/1.73 [place] [address]-4) compliance with the current recommendations of the [employer]. [facility] [place] will update rep orting as new guidelin es are published from the NKF-ASN Task force.
<br/ >Perfor med by:
[facility] [place] ([place])

BUN/Creatinine 14 9-20 Ratio (test code = 3097-3) Sodium (test code = 138 mmol/L 175-215 6625-2) Potassium (test 4.2 mmol/L 3.5-5.2 code = 2823-3) Chloride (test code 98 mmol/L 96-106 = 2075-0) Carbon Dioxide, 28 mmol/L 20-29 Total (test code = 2027-) Calcium (test code 8.4 mg/dL 8.7-10.2 L = 15436-0) Protein, Total 6.1 g/dL 6.0-8.5 (test code = 2885-2) Albumin (test code 3.0 g/dL 4.0-5.0 L = 1751-7) Globulin, Total 3.1 g/dL 1.5-4.5 (test code = 31784-8) A/G Ratio (test 1.0 1.2-2.2 L code = 1759-0) Bilirubin, Total 0.6 mg/dL 0.0-1.2 (test code = 1975-2) Alkaline 130 IU/L 48-121 H Please note Phosphatase (test reference interval code = 6768-6) change

Perf ormed by:
[facility] [place] ([place])

AST (SGOT) (test 15 IU/L 0-40 [...] >59 L Am (test code = mL/min/1.73 47522-8) eGFR If Africn Am 48 >59 L [facility] currently (test code = mL/min/1.73 [place] 06670-3) compliance with the current recommendations of the [employer]. [facility] [place] will update rep orting as new guidelin es are published from the NKF-ASN Task force.
<br/ >Perfor med by:
[facility] [place] ([place])

BUN/Creatinine 14 9-20 Ratio (test code = 3097-3) Sodium (test code = 138 mmol/L 021-305 3944-2) Potassium (test 4.2 mmol/L 3.5-5.2 code = 2823-3) Chloride (test code 98 mmol/L 96-106 = 2075-0) Carbon Dioxide, 28 mmol/L 20-29 Total (test code = 2027-) Calcium (test code 8.4 mg/dL 8.7-10.2 L = 15853-6) Protein, Total 6.1 g/dL 6.0-8.5 (test code = 2885-2) Albumin (test code 3.0 g/dL 4.0-5.0 L = 1751-7) Globulin, Total 3.1 g/dL 1.5-4.5 (test code = 89210-4) A/G Ratio (test 1.0 1.2-2.2 L code = 1759-0) Bilirubin, Total 0.6 mg/dL 0.0-1.2 (test code = 1975-2) Alkaline 130 IU/L 48-121 H Please note Phosphatase (test reference interval code = 6768-6) change

Perf ormed by:
[facility] ([place])

AST [...] >59 L Am (test code = mL/min/1.73 93237-7) eGFR If Africn Am 48 >59 L [facility] currently (test code = mL/min/1.73 [place] 85983-6) compliance with the current recommendations of the [employer]. [facility] [place] will update rep orting as new guidelin es are published from the NKF-ASN Task force.
<br/ >Perfor med by:
[facility] [place] [facility] ([place])

BUN/Creatinine 14 9-20 Ratio (test code = 3097-3) Sodium (test code = 138 mmol/L 379-887 8187-2) Potassium (test 4.2 mmol/L 3.5-5.2 code = 2823-3) Chloride (test code 98 mmol/L 96-106 = 2075-0) Carbon Dioxide, 28 mmol/L 20-29 Total (test code = 2027-) Calcium (test code 8.4 mg/dL 8.7-10.2 L = 18049-6) Protein, Total 6.1 g/dL 6.0-8.5 (test code = 2885-2) Albumin (test code 3.0 g/dL 4.0-5.0 L = 1751-7) Globulin, Total 3.1 g/dL 1.5-4.5 (test code = 41727-5) A/G Ratio (test 1.0 1.2-2.2 L code = 1759-0) Bilirubin, Total 0.6 mg/dL 0.0-1.2 (test code = 1975-2) Alkaline 130 IU/L 48-121 H Please note Phosphatase (test reference interval code = 6768-6) change

Perf ormed by:
[facility] ([place])

AST [...] >59 L Am (test code = mL/min/1.73 50670-1) eGFR If Afric[place] Am 48 >59 L [facility] currently (test code = mL/min/1.73 [place] 55866-5) compliance with the current recommendations of the [employer] [facility]. [facility] [place] will update rep orting as new guidelin es are published from the NKF-ASN Task force.
<br/ >Perfor med by:
[facility] [place] [facility] ([place])

BUN/Creatinine 14 9-20 Ratio (test code = 3097-3) Sodium (test code = 138 mmol/L 138-957 0371-2) Potassium (test 4.2 mmol/L 3.5-5.2 code = 2823-3) Chloride (test code 98 mmol/L 96-106 = 2075-0) Carbon Dioxide, 28 mmol/L 20-29 Total (test code = 2027-) Calcium (test code 8.4 mg/dL 8.7-10.2 L = 19904-8) Protein, Total 6.1 g/dL 6.0-8.5 (test code = 2885-2) Albumin (test code 3.0 g/dL 4.0-5.0 L = 1751-7) Globulin, Total 3.1 g/dL 1.5-4.5 (test code = 40514-8) A/G Ratio (test 1.0 1.2-2.2 L code = 1759-0) Bilirubin, Total 0.6 mg/dL 0.0-1.2 (test code = 1975-2) Alkaline 130 IU/L 48-121 H Please note Phosphatase (test reference interval code = 6768-6) change

Perf ormed by:
[facility] ([place])

AST [...] >59 L Am (test code = mL/min/1.73 76036-4) eGFR If Afric[place] Am 48 >59 L [facility] currently (test code = mL/min/1.73 [place] 71280-1) compliance with the current recommendations of the [employer] [facility]. [facility] [place] will update rep orting as new guidelin es are published from the NKF-ASN Task force.
<br/ >Perfor med by:
[facility] [place] [facility] ([place])

BUN/Creatinine 14 9-20 Ratio (test code = 3097-3) Sodium (test code = 138 mmol/L 879-488 8201-2) Potassium (test 4.2 mmol/L 3.5-5.2 code = 2823-3) Chloride (test code 98 mmol/L 96-106 = 2075-0) Carbon Dioxide, 28 mmol/L 20-29 Total (test code = 2027-) Calcium (test code 8.4 mg/dL 8.7-10.2 L = 31028-4) Protein, Total 6.1 g/dL 6.0-8.5 (test code = 2885-2) Albumin (test code 3.0 g/dL 4.0-5.0 L = 1751-7) Globulin, Total 3.1 g/dL 1.5-4.5 (test code = 33488-1) A/G Ratio (test 1.0 1.2-2.2 L code = 1759-0) Bilirubin, Total 0.6 mg/dL 0.0-1.2 (test code = 1975-2) Alkaline 130 IU/L 48-121 H Please note Phosphatase (test reference interval code = 6768-6) change

Perf ormed by:
[facility] ([place])

AST [...] >59 L Am (test code = mL/min/1.73 83120-9) eGFR If Afric[place] Am 48 >59 L [facility] currently (test code = mL/min/1.73 [place] 73568-0) compliance with the current recommendations of the [employer]. [facility] [place] will update rep orting as new guidelin es are published from the NKF-ASN Task force.
<br/ >Perfor med by:
[facility] [place] [facility] ([place])

BUN/Creatinine 14 9-20 Ratio (test code = 3097-3) Sodium (test code = 138 mmol/L 922-487 1033-2) Potassium (test 4.2 mmol/L 3.5-5.2 code = 2823-3) Chloride (test code 98 mmol/L 96-106 = 2075-0) Carbon Dioxide, 28 mmol/L 20-29 Total (test code = 2027-) Calcium (test code 8.4 mg/dL 8.7-10.2 L = 71317-9) Protein, Total 6.1 g/dL 6.0-8.5 (test code = 2885-2) Albumin (test code 3.0 g/dL 4.0-5.0 L = 1751-7) Globulin, Total 3.1 g/dL 1.5-4.5 (test code = 64848-5) A/G Ratio (test 1.0 1.2-2.2 L code = 1759-0) Bilirubin, Total 0.6 mg/dL 0.0-1.2 (test code = 1975-2) Alkaline 130 IU/L 48-121 H Please note Phosphatase (test reference interval code = 6768-6) change

Perf ormed by:
[facility] ([place])

AST [...] >59 L Am (test code = mL/min/1.73 54367-4) eGFR If Afric[place] Am 48 >59 L [facility] currently (test code = mL/min/1.73 [place] [address]-4) compliance with the current recommendations of the [employer]. [facility] [place] will update rep orting as new guidelin es are published from the NKF-ASN Task force.
<br/ >Perfor med by:
[facility] [place] [facility] ([place])

BUN/Creatinine 14 9-20 Ratio (test code = 3097-3) Sodium (test code = 138 mmol/L 981-505 0580-2) Potassium (test 4.2 mmol/L 3.5-5.2 code = 2823-3) Chloride (test code 98 mmol/L 96-106 = 2075-0) Carbon Dioxide, 28 mmol/L 20-29 Total (test code = 2027-) Calcium (test code 8.4 mg/dL 8.7-10.2 L = 34796-8) Protein, Total 6.1 g/dL 6.0-8.5 (test code = 2885-2) Albumin (test code 3.0 g/dL 4.0-5.0 L = 1751-7) Globulin, Total 3.1 g/dL 1.5-4.5 (test code = 35698-4) A/G Ratio (test 1.0 1.2-2.2 L code = 1759-0) Bilirubin, Total 0.6 mg/dL 0.0-1.2 (test code = 1975-2) Alkaline 130 IU/L 48-121 H Please note Phosphatase (test reference interval code = 6768-6) change

Perf ormed by:
L Nat[facility] Kaur ([place])

AST (SGOT) (test 15 IU/L [...] >59 L Am (test code = mL/min/1.73 53830-3) eGFR If Africn Am 48 >59 L [facility] currently (test code = mL/min/1.73 [place] 075[address]-7) compliance with the current recommendations of the [employer]. [facility] [place] will update rep orting as new guidelin es are published from the NKF-ASN Task force.
<br/ >Perfor med by:
[facility] [place] [facility] ([place])

BUN/Creatinine 14 9-20 Ratio (test code = 3097-3) Sodium (test code = 138 mmol/L 308-605 6667-2) Potassium (test 4.2 mmol/L 3.5-5.2 code = 2823-3) Chloride (test code 98 mmol/L 96-106 = 2075-0) Carbon Dioxide, 28 mmol/L 20-29 Total (test code = 2027-9) Calcium (test code 8.4 mg/dL 8.7-10.2 L = 37919-6) Protein, Total 6.1 g/dL 6.0-8.5 (test code = 2885-2) Albumin (test code 3.0 g/dL 4.0-5.0 L = 1751-7) Globulin, Total 3.1 g/dL 1.5-4.5 (test code = 22654-9) A/G Ratio (test 1.0 1.2-2.2 L code = 1759-0) Bilirubin, Total 0.6 mg/dL 0.0-1.2 (test code = 1975-2) Alkaline 130 IU/L 48-121 H Please note Phosphatase (test reference interval code = 6768-6) change

Perf ormed by:
L Nat[facility] Kaur (HD)

AST (SGOT) (test 15 IU/L [...] >59 L Am (test code = mL/min/1.73 28130-3) eGFR If Africn Am 48 >59 L [facility] currently (test code = mL/min/1.73 [place] 36077-4) compliance with the current recommendations of the [employer] [facility]. [facility] [place] will update rep orting as new guidelin es are published from the NKF-ASN Task force.
<br/ >Perfor med by:
[facility] [place] [facility] ([place])

BUN/Creatinine 14 9-20 Ratio (test code = 3097-3) Sodium (test code = 138 mmol/L 543-193 0221-2) Potassium (test 4.2 mmol/L 3.5-5.2 code = 2823-3) Chloride (test code 98 mmol/L 96-106 = 2075-0) Carbon Dioxide, 28 mmol/L 20-29 Total (test code = 2027-9) Calcium (test code 8.4 mg/dL 8.7-10.2 L = 08763-9) Protein, Total 6.1 g/dL 6.0-8.5 (test code = 2885-2) Albumin (test code 3.0 g/dL 4.0-5.0 L = 1751-7) Globulin, Total 3.1 g/dL 1.5-4.5 (test code = 21662-2) A/G Ratio (test 1.0 1.2-2.2 L code = 1759-0) Bilirubin, Total 0.6 mg/dL 0.0-1.2 (test code = 1974-2) Alkaline 130 IU/L 48-121 H Please note Phosphatase (test reference interval code = 6768-6) change

Perf ormed by:
[facility] ([place])

AST [...] >59 L Am (test code = mL/min/1.73 17457-3) eGFR If Afric[place] Am 48 >59 L [facility] currently (test code = mL/min/1.73 [place] [address]-6) compliance with the current recommendations of the [employer] [facility]. [facility] [place] will update rep orting as new guidelin es are published from the NKF-ASN Task force.
<br/ >Perfor med by:
[facility] [place] [facility] ([place])

BUN/Creatinine 14 9-20 Ratio (test code = 3097-3) Sodium (test code = 138 mmol/L 049-220 8351-2) Potassium (test 4.2 mmol/L 3.5-5.2 code = 2823-3) Chloride (test code 98 mmol/L 96-106 = 2075-0) Carbon Dioxide, 28 mmol/L 20-29 Total (test code = 2027-9) Calcium (test code 8.4 mg/dL 8.7-10.2 L = 06656-2) Protein, Total 6.1 g/dL 6.0-8.5 (test code = 2885-2) Albumin (test code 3.0 g/dL 4.0-5.0 L = 1751-7) Globulin, Total 3.1 g/dL 1.5-4.5 (test code = 78135-8) A/G Ratio (test 1.0 1.2-2.2 L code = 1759-0) Bilirubin, Total 0.6 mg/dL 0.0-1.2 (test code = 1975-2) Alkaline 130 IU/L 48-121 H Please note Phosphatase (test reference interval code = 6768-6) change

Perf ormed by:
[facility] ([place])

AST [...] >59 L Am (test code = mL/min/1.73 17443-4) eGFR If Afric[place] Am 48 >59 L [facility] currently (test code = mL/min/1.73 [place] 64672-4) compliance with the current recommendations of the [employer] [facility]. [facility] [place] will update rep orting as new guidelin es are published from the NKF-ASN Task force.
<br/ >Perfor med by:
[facility] [place] [facility] ([place])

BUN/Creatinine 14 9-20 Ratio (test code = 3097-3) Sodium (test code = 138 mmol/L 050-901 7021-2) Potassium (test 4.2 mmol/L 3.5-5.2 code = 2823-3) Chloride (test code 98 mmol/L 96-106 = 2075-0) Carbon Dioxide, 28 mmol/L 20-29 Total (test code = 2027-) Calcium (test code 8.4 mg/dL 8.7-10.2 L = 26018-7) Protein, Total 6.1 g/dL 6.0-8.5 (test code = 2885-2) Albumin (test code 3.0 g/dL 4.0-5.0 L = 1751-7) Globulin, Total 3.1 g/dL 1.5-4.5 (test code = 10710-7) A/G Ratio (test 1.0 1.2-2.2 L code = 1759-0) Bilirubin, Total 0.6 mg/dL 0.0-1.2 (test code = 1975-2) Alkaline 130 IU/L 48-121 H Please note Phosphatase (test reference interval code = 6768-6) change

Perf ormed by:
[facility] ([place])

AST [...] >59 L Am (test code = mL/min/1.73 17582-7) eGFR If Afric[place] Am 48 >59 L [facility] currently (test code = mL/min/1.73 [place] 72275-3) compliance with the current recommendations of the [employer]. [facility] [place] will update rep orting as new guidelin es are published from the NKF-ASN Task force.
<br/ >Perfor med by:
[facility] [place] [facility] ([place])

BUN/Creatinine 14 9-20 Ratio (test code = 3097-3) Sodium (test code = 138 mmol/L 897-136 9904-2) Potassium (test 4.2 mmol/L 3.5-5.2 code = 2823-3) Chloride (test code 98 mmol/L 96-106 = 2075-0) Carbon Dioxide, 28 mmol/L 20-29 Total (test code = 2027-9) Calcium (test code 8.4 mg/dL 8.7-10.2 L = 38253-8) Protein, Total 6.1 g/dL 6.0-8.5 (test code = 2885-2) Albumin (test code 3.0 g/dL 4.0-5.0 L = 1751-7) Globulin, Total 3.1 g/dL 1.5-4.5 (test code = 84922-4) A/G Ratio (test 1.0 1.2-2.2 L code = 1759-0) Bilirubin, Total 0.6 mg/dL 0.0-1.2 (test code = 1975-2) Alkaline 130 IU/L 48-121 H Please note Phosphatase (test reference interval code = 6768-6) change

Perf ormed by:
[facility] ([place])

AST [...] >59 L Am (test code = mL/min/1.73 38309-1) eGFR If Afric[place] Am 48 >59 L [facility] currently (test code = mL/min/1.73 [place] 61567-2) compliance with the current recommendations of the [employer]. [facility] [place] will update rep orting as new guidelin es are published from the NKF-ASN Task force.
<br/ >Perfor med by:
[facility] [place] [facility] ([place])

BUN/Creatinine 14 9-20 Ratio (test code = 3097-3) Sodium (test code = 138 mmol/L 019-044 3651-2) Potassium (test 4.2 mmol/L 3.5-5.2 code = 2823-3) Chloride (test code 98 mmol/L 96-106 = 2075-0) Carbon Dioxide, 28 mmol/L 20-29 Total (test code = 2027-) Calcium (test code 8.4 mg/dL 8.7-10.2 L = 49242-4) Protein, Total 6.1 g/dL 6.0-8.5 (test code = 2885-2) Albumin (test code 3.0 g/dL 4.0-5.0 L = 1751-7) Globulin, Total 3.1 g/dL 1.5-4.5 (test code = 78894-0) A/G Ratio (test 1.0 1.2-2.2 L code = 1759-0) Bilirubin, Total 0.6 mg/dL 0.0-1.2 (test code = 1974-2) Alkaline 130 IU/L 48-121 H Please note Phosphatase (test reference interval code = 6768-6) change

Perf ormed by:
[facility] ([place])

AST [...] >59 L Am (test code = mL/min/1.73 76947-9) eGFR If Afric[place] Am 48 >59 L [facility] currently (test code = mL/min/1.73 [place] 56541-7) compliance with the current recommendations of the [employer]. [facility] [place] will update rep orting as new guidelin es are published from the NKF-ASN Task force.
<br/ >Perfor med by:
[facility] [place] [facility] ([place])

BUN/Creatinine 14 9-20 Ratio (test code = 3097-3) Sodium (test code = 138 mmol/L 278-777 4192-2) Potassium (test 4.2 mmol/L 3.5-5.2 code = 2823-3) Chloride (test code 98 mmol/L 96-106 = 2075-0) Carbon Dioxide, 28 mmol/L 20-29 Total (test code = 2027-9) Calcium (test code 8.4 mg/dL 8.7-10.2 L = 84696-1) Protein, Total 6.1 g/dL 6.0-8.5 (test code = 2885-2) Albumin (test code 3.0 g/dL 4.0-5.0 L = 1751-7) Globulin, Total 3.1 g/dL 1.5-4.5 (test code = 63773-0) A/G Ratio (test 1.0 1.2-2.2 L code = 1759-0) Bilirubin, Total 0.6 mg/dL 0.0-1.2 (test code = 1975-2) Alkaline 130 IU/L 48-121 H Please note Phosphatase (test reference interval code = 6768-6) change

Perf ormed by:
[facility] ([place])

AST [...] >59 L Am (test code = mL/min/1.73 90924-7) eGFR If Afric[place] Am 48 >59 L [facility] currently (test code = mL/min/1.73 [place] 67168-0) compliance with the current recommendations of the [employer]. [facility] [place] will update rep orting as new guidelin es are published from the NKF-ASN Task force.
<br/ >Perfor med by:
[facility] ([place])

BUN/Creatinine 14 9-20 Ratio (test code = 3097-3) Sodium (test code = 138 mmol/L 904-099 6930-2) Potassium (test 4.2 mmol/L 3.5-5.2 code = 2823-3) Chloride (test code 98 mmol/L 96-106 = 2075-0) Carbon Dioxide, 28 mmol/L 20-29 Total (test code = 2027-) Calcium (test code 8.4 mg/dL 8.7-10.2 L = 08104-1) Protein, Total 6.1 g/dL 6.0-8.5 (test code = 2885-2) Albumin (test code 3.0 g/dL 4.0-5.0 L = 1751-7) Globulin, Total 3.1 g/dL 1.5-4.5 (test code = 34498-1) A/G Ratio (test 1.0 1.2-2.2 L code = 1759-0) Bilirubin, Total 0.6 mg/dL 0.0-1.2 (test code = 1975-2) Alkaline 130 IU/L 48-121 H Please note Phosphatase (test reference interval code = 6768-6) change

Perf ormed by:
[facility] [place] ([place])

AST (SGOT) (test 15 IU/L 0-40 code = 1920-8) ALT (SGPT) (test 18 IU/L 0-44 code = 1742-6) [facility] Description: Hemoglobin A1c/Hemoglobin.total in Blood 2020-08-16 00:35:00 Test Item Value Reference Range Interpretation Comments Hemoglobin A1c (test code 11.6 % 4.8-5.6 H . Prediabetes: 5.7 - = 4548-4) 6.4 Diabetes: > 6.4 Glycemic contro l for adults with mary ann betes: <7.0

P erforme d by:
[facility] ([place])

[facility] Description: Hemoglobin A1c/Hemoglobin.total in Blood 2020-08-16 00:35:00 Test Item Value Reference Range Interpretation Comments Hemoglobin A1c (test code 11.6 % 4.8-5.6 H . Prediabetes: 5.7 - = 4548-4) 6.4 Diabetes: > 6.4 Glycemic contro l for adults with mary ann betes: <7.0

P erforme d by:
[facility] [place] ([place])

[facility] Description: Hemoglobin A1c/Hemoglobin.total in Blood 2020-08-16 00:35:00 Test Item Value Reference Range Interpretation Comments Hemoglobin A1c (test code 11.6 % 4.8-5.6 H . Prediabetes: 5.7 - = 4548-4) 6.4 Diabetes: > 6.4 Glycemic contro l for adults with mary ann betes: <7.0

P erforme d by:
[facility] ([place])

[facility] Description: Hemoglobin A1c/Hemoglobin.total in Blood 2020-08-16 00:35:00 Test Item Value Reference Range Interpretation Comments Hemoglobin A1c (test code 11.6 % 4.8-5.6 H . Prediabetes: 5.7 - = 4548-4) 6.4 Diabetes: > 6.4 Glycemic contro l for adults with mary ann betes: <7.0

P erforme d by:
[facility] ()

[facility] Description: Hemoglobin A1c/Hemoglobin.total in Blood 2020-08-16 00:35:00 Test Item Value Reference Range Interpretation Comments Hemoglobin A1c (test code 11.6 % 4.8-5.6 H . Prediabetes: 5.7 - = 4548-4) 6.4 Diabetes: > 6.4 Glycemic contro l for adults with mary ann betes: <7.0

P erforme d by:
[facility] ()

[facility] Description: Hemoglobin A1c/Hemoglobin.total in Blood 2020-08-16 00:35:00 Test Item Value Reference Range Interpretation Comments Hemoglobin A1c (test code 11.6 % 4.8-5.6 H . Prediabetes: 5.7 - = 4548-4) 6.4 Diabetes: > 6.4 Glycemic contro l for adults with mary ann betes: <7.0

P erforme d by:
[facility] [place] ([place])

[facility] Description: Hemoglobin A1c/Hemoglobin.total in Blood 2020-08-16 00:35:00 Test Item Value Reference Range Interpretation Comments Hemoglobin A1c (test code 11.6 % 4.8-5.6 H . Prediabetes: 5.7 - = 4548-4) 6.4 Diabetes: > 6.4 Glycemic contro l for adults with mary ann betes: <7.0

P erforme d by:
[facility] [place] ([place])

[facility] Description: Hemoglobin A1c/Hemoglobin.total in Blood 2020-08-16 00:35:00 Test Item Value Reference Range Interpretation Comments Hemoglobin A1c (test code 11.6 % 4.8-5.6 H . Prediabetes: 5.7 - = 4548-4) 6.4 Diabetes: > 6.4 Glycemic contro l for adults with mary ann betes: <7.0

P erforme d by:
[facility] [place] ([place])

[facility] Description: Hemoglobin A1c/Hemoglobin.total in Blood 2020-08-16 00:35:00 Test Item Value Reference Range Interpretation Comments Hemoglobin A1c (test code 11.6 % 4.8-5.6 H . Prediabetes: 5.7 - = 4548-4) 6.4 Diabetes: > 6.4 Glycemic contro l for adults with mary ann betes: <7.0

P erforme d by:
[facility] [place] ([place])

[facility] Description: Hemoglobin A1c/Hemoglobin.total in Blood 2020-08-16 00:35:00 Test Item Value Reference Range Interpretation Comments Hemoglobin A1c (test code 11.6 % 4.8-5.6 H . Prediabetes: 5.7 - = 4548-4) 6.4 Diabetes: > 6.4 Glycemic contro l for adults with mary ann betes: <7.0

P erforme d by:
[facility] [place] ([place])

[facility] Description: Hemoglobin A1c/Hemoglobin.total in Blood 2020-08-16 00:35:00 Test Item Value Reference Range Interpretation Comments Hemoglobin A1c (test code 11.6 % 4.8-5.6 H . Prediabetes: 5.7 - = 4548-4) 6.4 Diabetes: > 6.4 Glycemic contro l for adults with mary ann betes: <7.0

P erforme d by:
[facility] ([place])

[facility] Description: Hemoglobin A1c/Hemoglobin.total in Blood 2020-08-16 00:35:00 Test Item Value Reference Range Interpretation Comments Hemoglobin A1c (test code 11.6 % 4.8-5.6 H . Prediabetes: 5.7 - = 4548-4) 6.4 Diabetes: > 6.4 Glycemic contro l for adults with mary ann betes: <7.0

P erforme d by:
[facility] ([place])

[facility] Description: Hemoglobin A1c/Hemoglobin.total in Blood 2020-08-16 00:35:00 Test Item Value Reference Range Interpretation Comments Hemoglobin A1c (test code 11.6 % 4.8-5.6 H . Prediabetes: 5.7 - = 4548-4) 6.4 Diabetes: > 6.4 Glycemic contro l for adults with mary ann betes: <7.0

P erforme d by:
[facility] [place] ([place])

[facility] Description: Hemoglobin A1c/Hemoglobin.total in Blood 2020-08-16 00:35:00 Test Item Value Reference Range Interpretation Comments Hemoglobin A1c (test code 11.6 % 4.8-5.6 H . Prediabetes: 5.7 - = 4548-4) 6.4 Diabetes: > 6.4 Glycemic contro l for adults with mary ann betes: <7.0

P erforme d by:
[facility] ([place])

[facility] Description: Hemoglobin A1c/Hemoglobin.total in Blood 2020-08-16 00:35:00 Test Item Value Reference Range Interpretation Comments Hemoglobin A1c (test code 11.6 % 4.8-5.6 H . Prediabetes: 5.7 - = 4548-4) 6.4 Diabetes: > 6.4 Glycemic contro l for adults with mary ann betes: <7.0

P erforme d by:
[facility] [place] ([place])

[facility] Description: Hemoglobin A1c/Hemoglobin.total in Blood 2020-08-16 00:35:00 Test Item Value Reference Range Interpretation Comments Hemoglobin A1c (test code 11.6 % 4.8-5.6 H . Prediabetes: 5.7 - = 4548-4) 6.4 Diabetes: > 6.4 Glycemic contro l for adults with mary ann betes: <7.0

P erforme d by:
[facility] ([place])

[facility] Description: Hemoglobin A1c/Hemoglobin.total in Blood 2020-08-16 00:35:00 Test Item Value Reference Range Interpretation Comments Hemoglobin A1c (test code 11.6 % 4.8-5.6 H . Prediabetes: 5.7 - = 4548-4) 6.4 Diabetes: > 6.4 Glycemic contro l for adults with mary ann betes: <7.0

P erforme d by:
[facility] ([place])

[facility] Description: Hemoglobin A1c/Hemoglobin.total in Blood 2020-08-16 00:35:00 Test Item Value Reference Range Interpretation Comments Hemoglobin A1c (test code 11.6 % 4.8-5.6 H . Prediabetes: 5.7 - = 4548-4) 6.4 Diabetes: > 6.4 Glycemic contro l for adults with mary ann betes: <7.0

P erforme d by:
[facility] [place] ([place])

[facility] Description: Hemoglobin A1c/Hemoglobin.total in Blood 2020-08-16 00:35:00 Test Item Value Reference Range Interpretation Comments Hemoglobin A1c (test code 11.6 % 4.8-5.6 H . Prediabetes: 5.7 - = 4548-4) 6.4 Diabetes: > 6.4 Glycemic contro l for adults with mary ann betes: <7.0

P erforme d by:
[facility] [employer] ()

[employer] Description: Hemoglobin A1c/Hemoglobin.total in Blood 2020-08-16 00:35:00 Test Item Value Reference Range Interpretation Comments Hemoglobin A1c (test code 11.6 % 4.8-5.6 H . Prediabetes: 5.7 - = 4548-4) 6.4 Diabetes: > 6.4 Glycemic contro l for adults with mary ann betes: <7.0

P erforme d by:
[facility] (HD)

[facility] Description: Hemoglobin A1c/Hemoglobin.total in Blood 2020-08-16 00:35:00 Test Item Value Reference Range Interpretation Comments Hemoglobin A1c (test code 11.6 % 4.8-5.6 H . Prediabetes: 5.7 - = 4548-4) 6.4 Diabetes: > 6.4 Glycemic contro l for adults with mary ann betes: <7.0

P erforme d by:
[facility] [facility] (HD)

[facility] Description: Hemoglobin A1c/Hemoglobin.total in Blood 2020-08-16 00:35:00 Test Item Value Reference Range Interpretation Comments Hemoglobin A1c (test code 11.6 % 4.8-5.6 H . Prediabetes: 5.7 - = 4548-4) 6.4 Diabetes: > 6.4 Glycemic contro l for adults with mary ann betes: <7.0

P erforme d by:
[facility] ()

AccessHealthType and screen, uzbrycxkv5005-77-15 19:24:00 Test Item Value Reference Range Interpretation Comments ABO/RH AUTOMATED (BEAKER) (test A POSITIVE ECHO code = 2260) Ab Scrn (test code = 890-4) [facility]IVE [facility] [id number] 19:24:00 Test Item Value Reference Range Interpretation Comments ABO/RH AUTOMATED (BEAKER) (test A POSITIVE ECHO code = 2260) Ab Scrn (test code = 890-4) [facility] [id number] 19:24:00 Test Item Value Reference Range Interpretation Comments ABO/RH AUTOMATED (BEAKER) (test A POSITIVE ECHO code = 2260) Ab Scrn (test code = 890-4) [facility], oaqtxhnpa5386-09-78 19:24:00 Test Item Value Reference Range Interpretation Comments ABO/RH AUTOMATED (BEAKER) (test A POSITIVE ECHO code = 2260) Ab Scrn (test code = 890-4) [facility], [id number] 19:24:00 Test Item Value Reference Range Interpretation Comments ABO/RH AUTOMATED (BEAKER) (test A POSITIVE ECHO code = 2260) Ab Scrn (test code = 890-4) [facility], [id number] 19:24:00 Test Item Value Reference Range Interpretation Comments ABO/RH AUTOMATED (BEAKER) (test A POSITIVE ECHO code = 2260) Ab Scrn (test code = 890-4) [facility], [id number] 19:24:00 Test Item Value Reference Range Interpretation Comments ABO/RH AUTOMATED (BEAKER) (test A POSITIVE ECHO code = 2260) Ab Scrn (test code = 890-4) NEGATIVE [facility] [id number] 19:12:00 Test Item Value Reference Range Interpretation Comments Protein, Total (test 6.9 See_Comment [Autom ated code = 2885-2) message] The system which generated this result transmit josé luis reference range : 6.0 - 8.5 gm/dL . The reference range was not u sed to interpret th is result as normal/abnormal . Albumin (test code = 3.3 g/dL 3.5-5 L 83297-5) Alkaline Phosphatase 97 U/L 30-115 (test code = 6768-6) Total Bilirubin (test 0.9 mg/dL 0.1-1.2 code = 1975-2) Sodium (test code = 137 meq/L 568-829 1683-2) Potassium (test code 4.5 meq/L 3.6-5.5 = 2823-3) Chloride (test code = 100 meq/L 98-106 2075-0) CO2 (test code = 26 meq/L 20-29 8-9) BUN (test code = 51 mg/dL 10-26 H 3094-0) Creatinine (test code 1.87 mg/dL 0.5-1.2 H = 2160-0) Glucose (test code = 267 mg/dL 70-110 H 2345-7) Calcium (test code = 9.1 mg/dL 8.5-10.5 68633-7) AST (test code = 18 U/L 5-40 1920-8) ALT (test code = 23 U/L 5-50 1742-6) EGFR (test code = 39 mL/min/1.73 [place] [address]-7) NOT ACCURATE CREATININE CLEARANCE IN PREDICTING GLOMERULAR FILTRATION RATE . ESTIMATED GFR I S NOT APPLICABLE FOR DIALYSIS PATIEN TS. ISSA (test code = ISSA) [employer] ID - [id number] r ID - [id number] r ID - [id number] r ID - [id number] r ID - [id number] r ID - [id number] r ID - [id number] r ID - [id number] r ID - [id number] r ID - [id number] r ID - [id number] r ID - [id number] r ID - [id number] r ID - [id number] r ID - [id number] r ID - [id number] r ID - [id number] r ID - [id number] r ID - [id number] Lab Interpretation Abnormal (test code = 89134-3) [facility] [id number] 19:12:00 Test Item Value Reference Range Interpretation Comments Protein, Total (test 6.9 See_Comment [Autom ated code = 2885-2) message] The system which generated this result transmit josé luis reference range : 6.0 - 8.5 gm/dL . The reference range was not u sed to interpret th is result as normal/abnormal . Albumin (test code = 3.3 g/dL 3.5-5 L 63535-1) Alkaline Phosphatase 97 U/L 30-115 (test code = 6768-6) Total Bilirubin (test 0.9 mg/dL 0.1-1.2 code = 1974-2) Sodium (test code = 137 meq/L 521-583 9964-2) Potassium (test code 4.5 meq/L 3.6-5.5 = 2823-3) Chloride (test code = 100 meq/L 98-106 5-0) CO2 (test code = 26 meq/L 20-29 2027-9) BUN (test code = 51 mg/dL 10-26 H 3094-0) Creatinine (test code 1.87 mg/dL 0.5-1.2 H = 2160-0) Glucose (test code = 267 mg/dL 70-110 H 2345-7) Calcium (test code = 9.1 mg/dL 8.5-10.5 57830-0) AST (test code = 18 U/L 5-40 1920-8) ALT (test code = 23 U/L 5-50 1742-6) EGFR (test code = 39 mL/min/1.73 [place] [address]-9) NOT ACCURATE CREATININE CLEARANCE IN PREDICTING GLOMERULAR FILTRATION RATE . ESTIMATED GFR I S NOT APPLICABLE FOR DIALYSIS PATIEN TS. ISSA (test code = ISSA) Business [employer] ID - [id number] r ID - [id number] r ID - [id number] r ID - [id number] r ID - [id number] r ID - [id number] r ID - [id number] r ID - [id number] r ID - [id number] r ID - [id number] r ID - [id number] r ID - [id number] r ID - [id number] r ID - [id number] r ID - [id number] r ID - [id number] r ID - [id number] r ID - [id number] r ID - [id number] Lab Interpretation Abnormal (test code = 77922-8) [facility] [id number] 19:12:00 Test Item Value Reference Range Interpretation Comments Protein, Total (test 6.9 See_Comment [Autom ated code = 2885-2) message] The system which generated this result transmit josé luis reference range : 6.0 - 8.5 gm/dL . The reference range was not u sed to interpret th is result as normal/abnormal . Albumin (test code = 3.3 g/dL 3.5-5 L 99604-8) Alkaline Phosphatase 97 U/L 30-115 (test code = 6768-6) Total Bilirubin (test 0.9 mg/dL 0.1-1.2 code = 1974-2) Sodium (test code = 137 meq/L 330-279 3664-2) Potassium (test code 4.5 meq/L 3.6-5.5 = 2823-3) Chloride (test code = 100 meq/L 98-106 2075-0) CO2 (test code = 26 meq/L 20-29 2028-9) BUN (test code = 51 mg/dL 10-26 H 3094-0) Creatinine (test code 1.87 mg/dL 0.5-1.2 H = 2160-0) Glucose (test code = 267 mg/dL 70-110 H 2345-7) Calcium (test code = 9.1 mg/dL 8.5-10.5 84036-8) AST (test code = 18 U/L 5-40 1920-8) ALT (test code = 23 U/L 5-50 1742-6) EGFR (test code = 39 mL/min/1.73 [place] [address]-3) NOT ACCURATE CREATININE CLEARANCE IN PREDICTING GLOMERULAR FILTRATION RATE . ESTIMATED GFR I S NOT APPLICABLE FOR DIALYSIS PATIEN TS. ISSA (test code = ISSA) Business Banker ID - [id number] r ID - [id number] r ID - [id number] r ID - [id number] r ID - [id number] r ID - [id number] r ID - [id number] r ID - [id number] r ID - [id number] r ID - [id number] r ID - [id number] r ID - [id number] r ID - [id number] r ID - [id number] r ID - [id number] r ID - [id number] r ID - [id number] r ID - [id number] r ID - [id number] Lab Interpretation Abnormal (test code = 05508-0) [facility] [id number] 19:12:00 Test Item Value Reference Range Interpretation Comments Protein, Total (test 6.9 See_Comment [Autom ated code = 2885-2) message] The system which generated this result transmit josé luis reference range : 6.0 - 8.5 gm/dL . The reference range was not u sed to interpret th is result as normal/abnormal . Albumin (test code = 3.3 g/dL 3.5-5 L 97804-9) Alkaline Phosphatase 97 U/L 30-115 (test code = 6768-6) Total Bilirubin (test 0.9 mg/dL 0.1-1.2 code = 1975-2) Sodium (test code = 137 meq/L 108-776 8139-2) Potassium (test code 4.5 meq/L 3.6-5.5 = 2823-3) Chloride (test code = 100 meq/L 98-106 2075-0) CO2 (test code = 26 meq/L 20-29 2028-9) BUN (test code = 51 mg/dL 10-26 H 3094-0) Creatinine (test code 1.87 mg/dL 0.5-1.2 H = 2160-0) Glucose (test code = 267 mg/dL 70-110 H 2345-7) Calcium (test code = 9.1 mg/dL 8.5-10.5 00331-9) AST (test code = 18 U/L 5-40 1920-8) ALT (test code = 23 U/L 5-50 1742-6) EGFR (test code = 39 mL/min/1.73 [place] [address]-6) NOT ACCURATE CREATININE CLEARANCE IN PREDICTING GLOMERULAR FILTRATION RATE . ESTIMATED GFR I S NOT APPLICABLE FOR DIALYSIS PATIEN TS. ISSA (test code = ISSA) Business Banker ID - [id number] r ID - [id number] r ID - [id number] r ID - [id number] r ID - [id number] r ID - [id number] r ID - [id number] r ID - [id number] r ID - [id number] r ID - [id number] r ID - [id number] r ID - [id number] r ID - [id number] r ID - [id number] r ID - [id number] r ID - [id number] r ID - [id number] r ID - [id number] r ID - [id number] Lab Interpretation Abnormal (test code = 74762-0) [facility] [id number] 19:12:00 Test Item Value Reference Range Interpretation Comments Protein, Total (test 6.9 See_Comment [Autom ated code = 2885-2) message] The system which generated this result transmit josé luis reference range : 6.0 - 8.5 gm/dL . The reference range was not u sed to interpret th is result as normal/abnormal . Albumin (test code = 3.3 g/dL 3.5-5.0 L 64261-5) Alkaline Phosphatase 97 U/L 30-115 (test code = 6768-6) Total Bilirubin (test 0.9 mg/dL 0.1-1.2 code = 1974-2) Sodium (test code = 137 meq/L 355-250 2295-2) Potassium (test code 4.5 meq/L 3.6-5.5 = 2823-3) Chloride (test code = 100 meq/L 98-106 2074-0) CO2 (test code = 26 meq/L 20-29 2027-9) BUN (test code = 51 mg/dL 10-26 H 3094-0) Creatinine (test code 1.87 mg/dL 0.50-1.20 H = 2160-0) Glucose (test code = 267 mg/dL 70-110 H 2345-7) Calcium (test code = 9.1 mg/dL 8.5-10.5 65924-2) AST (test code = 18 U/L 5-40 1920-8) ALT (test code = 23 U/L 5-50 2-6) EGFR (test code = 39 mL/min/1.73 [place] [address]-9) NOT ACCURATE CREATININE CLEARANCE IN PREDICTING GLOMERULAR FILTRATION RATE . ESTIMATED GFR I S NOT APPLICABLE FOR DIALYSIS PATIEN ISSA (test code = ISSA) Business Banker ID - [id number] r ID - [id number] r ID - [id number] r ID - [id number] r ID - [id number] r ID - [id number] r ID - [id number] r ID - [id number] r ID - [id number] r ID - [id number] r ID - [id number] r ID - [id number] r ID - [id number] r ID - [id number] r ID - [id number] r ID - [id number] r ID - [id number] r ID - [id number] r ID - [id number] Lab Interpretation Abnormal (test code = 51814-5) [facility] [id number] 19:12:00 Test Item Value Reference Range Interpretation Comments Protein, Total (test 6.9 See_Comment [Autom ated code = 2885-2) message] The system which generated this result transmit josé luis reference range : 6.0 - 8.5 gm/dL . The reference range was not u sed to interpret th is result as normal/abnormal . Albumin (test code = 3.3 g/dL 3.5-5.0 L 20387-2) Alkaline Phosphatase 97 U/L 30-115 (test code = 6768-6) Total Bilirubin (test 0.9 mg/dL 0.1-1.2 code = 1975-2) Sodium (test code = 137 meq/L 479-439 7004-2) Potassium (test code 4.5 meq/L 3.6-5.5 = 2823-3) Chloride (test code = 100 meq/L 98-106 2074-0) CO2 (test code = 26 meq/L 20-29 2027-) BUN (test code = 51 mg/dL 10-26 H 4-0) Creatinine (test code 1.87 mg/dL 0.50-1.20 H = 2160-0) Glucose (test code = 267 mg/dL 70-110 H 2345-7) Calcium (test code = 9.1 mg/dL 8.5-10.5 50251-1) AST (test code = 18 U/L 5-40 1920-8) ALT (test code = 23 U/L 5-50 1742-6) EGFR (test code = 39 mL/min/1.73 [place] [address]-8) NOT ACCURATE CREATININE CLEARANCE IN PREDICTING GLOMERULAR FILTRATION RATE . ESTIMATED GFR I S NOT APPLICABLE FOR DIALYSIS PATIEN TS. ISSA (test code = ISSA) Business Banker ID - [id number] r ID - [id number] r ID - [id number] r ID - [id number] r ID - [id number] r ID - [id number] r ID - [id number] r ID - [id number] r ID - [id number] r ID - [id number] r ID - [id number] r ID - [id number] r ID - [id number] r ID - [id number] r ID - [id number] r ID - [id number] r ID - [id number] r ID - [id number] r ID - [id number] Lab Interpretation Abnormal (test code = 54202-3) [facility] jehqk8340-06-03 19:12:00 Test Item Value Reference Range Interpretation Comments Protein, Total (test 6.9 See_Comment [Autom ated code = 2885-2) message] The system which generated this result transmit josé luis reference range : 6.0 - 8.5 gm/dL . The reference range was not u sed to interpret th is result as normal/abnormal . Albumin (test code = 3.3 g/dL 3.5-5.0 L 63227-4) Alkaline Phosphatase 97 U/L 30-115 (test code = 6768-6) Total Bilirubin (test 0.9 mg/dL 0.1-1.2 code = 1975-2) Sodium (test code = 137 meq/L 519-151 8231-2) Potassium (test code 4.5 meq/L 3.6-5.5 = 2823-3) Chloride (test code = 100 meq/L 98-106 2074-0) CO2 (test code = 26 meq/L 20-29 2027-9) BUN (test code = 51 mg/dL 10-26 H 3094-0) Creatinine (test code 1.87 mg/dL 0.50-1.20 H = 2160-0) Glucose (test code = 267 mg/dL 70-110 H 2345-7) Calcium (test code = 9.1 mg/dL 8.5-10.5 27774-0) AST (test code = 18 U/L 5-40 1920-8) ALT (test code = 23 U/L 5-50 1742-6) EGFR (test code = 39 mL/min/1.73 [place] [address]-4) NOT ACCURATE CREATININE CLEARANCE IN PREDICTING GLOMERULAR FILTRATION RATE . ESTIMATED GFR I S NOT APPLICABLE FOR DIALYSIS PATIEN TS. ISSA (test code = ISSA) Business Banker ID - [id number] r ID - [id number] r ID - [id number] r ID - [id number] r ID - [id number] r ID - [id number] r ID - [id number] r ID - [id number] r ID - [id number] r ID - [id number] r ID - [id number] r ID - [id number] r ID - [id number] r ID - [id number] r ID - [id number] r ID - [id number] r ID - [id number] r ID - [id number] r ID - [id number] Lab Interpretation Abnormal (test code = 11661-8) [facility] [id number] 19:12:00 Test Item Value Reference Range Interpretation [...] S NOT APPLICABLE FOR DIALYSIS PATIEN TS. Business Banker ID - [id number] ID - [id number] ID - [id number] ID - [id number] ID - [id number] ID - [id number] ID - [id number] ID - [id number] ID - [id number] ID - [id number] ID - [id number] ID - [id number] ID - [id number] ID - [id number] ID - [id number] ID - [id number] ID - [id number] ID - [id number] ID - [id number] acid, [id number] 19:05:00 Test Item Value Reference Range Interpretation Comments Lactate, Venous (test code 1.18 mmol/L 0.5-2 = 2872) ISSA (test code = ISSA) Business [employer] ID - [id number] ID - [id number] ID - [id number] ID - [id number] Lab Interpretation (test Normal code = 84264-2) [facility] [id number] 19:05:00 Test Item Value Reference Range Interpretation Comments Lactate, Venous (test code 1.18 mmol/L 0.5-2 = 2872) ISSA (test code = ISSA) Business [employer]er ID - [id number] ID - [id number] ID - [id number] ID - [id number] Lab Interpretation (test Normal code = 03133-2) [facility] acid, [id number] 19:05:00 Test Item Value Reference Range Interpretation Comments Lactate, Venous (test code 1.18 mmol/L 0.5-2 = 2872) ISSA (test code = ISSA) Business Banker ID - [id number] ID - [id number] ID - [id number] ID - [id number] Lab Interpretation (test Normal code = 34651-4) [facility] acid, dwqrzy8519-71-59 19:05:00 Test Item Value Reference Range Interpretation Comments Lactate, Venous (test code 1.18 mmol/L 0.5-2 = 2872) ISSA (test code = ISSA) Business [employer]er ID - [id number] ID - [id number] ID - [id number] ID - [id number] Lab Interpretation (test Normal code = 58665-1) [facility], cgnzey1726-48-13 19:05:00 Test Item Value Reference Range Interpretation Comments Lactate, Venous (test code 1.18 mmol/L 0.50-2.00 = 2872) ISSA (test code = ISSA) Business Banker ID - [id number] ID - [id number] ID - [id number] ID - [id number] Lab Interpretation (test Normal code = 24784-3) [facility] xekcyw9629-76-32 19:05:00 Test Item Value Reference Range Interpretation Comments Lactate, Venous (test code 1.18 mmol/L 0.50-2.00 = 2872) ISSA (test code = ISSA) Business Banker ID - [id number] ID - [id number] ID - [id number] ID - [id number] Lab Interpretation (test Normal code = 60446-7) [facility], [id number] 19:05:00 Test Item Value Reference Range Interpretation Comments Lactate, Venous (test code 1.18 mmol/L 0.50-2.00 = 2872) ISSA (test code = ISSA) Business Banker ID - [id number] ID - [id number] ID - [id number] ID - [id number] Lab Interpretation (test Normal code = 35802-0) [facility], [id number] 19:05:00 Test Item Value Reference Range Interpretation Comments LACTATE BLOOD VENOUS (2) (BEAKER) 1.18 mmol/L 0.50-<2.00 (test code = 2872) [employer] ID - [id number] ID - [id number] ID - [id number] ID - [id number]/[id number] 19:02:00 Test Item Value Reference Interpretation Comments [...] valves. Lab Interpretation Abnormal (test code = 79904-2) [id number] 19:02:00 Test Item Value Reference Interpretation Comments [...] valves. Lab Interpretation Abnormal (test code = 45019-5) [facility][id number] 19:02:00 Test Item Value Reference Interpretation Comments [...] valves. Lab Interpretation Abnormal (test code = 56596-6) [facility][id number] 19:02:00 Test Item Value Reference Interpretation Comments [...] valves. Lab Interpretation Abnormal (test code = 97031-6) [facility]/[id number] 19:02:00 Test Item Value Reference Interpretation Comments [...] valves. Lab Interpretation Abnormal (test code = 27838-1) [facility][id number] 19:02:00 Test Item Value Reference Interpretation Comments [...] valves. Lab Interpretation Abnormal (test code = 54596-9) [facility]/[id number] 19:02:00 Test Item Value Reference Interpretation Comments [...] valves. Lab Interpretation Abnormal (test code = 14792-7) [facility] CenterPROTHROMBIN TIME/[id number] 19:02:00 Test Item Value Reference Range Interpretation [...] mechanical heart valves.CBC W/PLT COUNT & AUTO [id number] 18:51:00 Test Item Value Reference Range Interpretation [...] code = 2801) CARDIAC CATH REPORT - [id number] 13:14:50Ordered by an unspecified provider. [facility] - [id number] 13:14:50Ordered by an unspecified provider.[facility] - SCAN 2020-04-17 13:14:50Ordered by an unspecified provider.[facility] - [id number] 13:14:50Ordered by an unspecified provider.[facility] CenterKappa / lambda light chains, ohhnh8614-69-39 10:53:00 Test Item Value Reference Interpretation Comments Range [place] Lt Chain,Free 129.5 mg/L 3.3-19.4 H (test code = 26852-6) Lambda Lt 99.3 mg/L 5.7-26.3 H Chain,Free (test code = 15970-6) [place]/Lambda,Free 1.3 0.26-1.65 Free [place] a/lambda (test code [...] Lab ISSA) [facility] [address] [place] [address] Awais Cedeno MD, PhD, TOMY Lab Interpretation Abnormal (test code = 09427-9) [facility] CenterK[facility] lambda light chains, [id number] 10:53:00 Test Item Value Reference Interpretation Comments Range [place] Lt Chain,Free 129.5 mg/L 3.3-19.4 H (test code = 23966-1) Lambda Lt 99.3 mg/L 5.7-26.3 H Chain,Free (test code = 09481-0) [place]/Lambda,Free 1.3 0.26-1.65 Free [place] a/lambda (test code [...] (test code = Performing Lab ISSA) [facility] [address] [place] [address] Awais Cedeno MD, PhD, TOMY Lab Interpretation Abnormal (test code = 27710-5) [facility] lambda light chains, [id number] 10:53:00 Test Item Value Reference Interpretation Comments Range [place] Lt Chain,Free 129.5 mg/L 3.3-19.4 H (test code = 00133-6) Lambda Lt 99.3 mg/L 5.7-26.3 H Chain,Free (test code = 49769-6) [place]/Lambda,Free 1.3 0.26-1.65 Free [place] a/lambda (test code [...] (test code = Performing Lab ISSA) [facility]Z [facility] [address] [place] [address] Awais Cedeno MD, PhD, TOMY Lab Interpretation Abnormal (test code = 75424-3) [facility] lambda light chains, [id number] 10:53:00 Test Item Value Reference Interpretation Comments Range [place] Lt Chain,Free 129.5 mg/L 3.3-19.4 H (test code = 64149-4) Lambda Lt 99.3 mg/L 5.7-26.3 H Chain,Free (test code = 11448-2) [place]/Lambda,Free 1.3 0.26-1.65 Free [place] a/lambda (test code [...] (test code = Performing Lab ISSA) [facility] [employer] [facility] [address] [place] [address] Awais Cedeno MD, PhD, TOMY Lab Interpretation Abnormal (test code = 18936-0) [facility], [id number] 10:53:00 Test Item Value Reference Interpretation Comments Range [place] Lt Chain,Free 129.5 mg/L 3.3-19.4 H (test code = 81810-1) Lambda Lt 99.3 mg/L 5.7-26.3 H Chain,Free (test code = 46347-6) [place]/Lambda,Free 1.3 0.26-1.65 Free [place] a/lambda (test code [...] ISSA (test code = Performing Lab ISSA) [facility] [address] [place] [address] Awais Cedeno MD, PhD, TOMY Lab Interpretation Abnormal (test code = 69659-3) [facility], [id number] 10:53:00 Test Item Value Reference Interpretation Comments Range [place] Lt Chain,Free 129.5 mg/L 3.3-19.4 H (test code = 29177-9) Lambda Lt 99.3 mg/L 5.7-26.3 H Chain,Free (test code = 83397-8) [place]/Lambda,Free 1.3 0.26-1.65 Free [place] a/lambda (test code [...] (test code = Performing Lab ISSA) [employer] [address] [place] [address] Awais Cedeno MD, PhD, TOMY Lab Interpretation Abnormal (test code = 95070-2) [facility], [id number] 10:53:00 Test Item Value Reference Interpretation Comments Range [place] Lt Chain,Free 129.5 mg/L 3.3-19.4 H (test code = 79445-0) Lambda Lt 99.3 mg/L 5.7-26.3 H Chain,Free (test code = 64831-7) [place]/Lambda,Free 1.3 0.26-1.65 Free [place] a/lambda (test code [...] Lab ISSA) [facility] [address] [place] [address] Awais Cedeno MD, PhD, TOMY Lab Interpretation Abnormal (test code = 11630-7) [facility] [id number] 08:14:00 Test Item Value Reference Range Interpretation Comments POC-GLUCOSE METER 107 mg/dL 70-110 : Notified RN/MD: TESTED (BEAKER) (test code AT [facility] [address] = 1538) [facility] [address]: Business Banker/Techni cornelia ID = [id number] for Chelsie Garland BASIC METABOLIC [id number] 05:19:00 Test Item Value Reference Range Interpretation [...] S NOT APPLICABLE FOR DIALYSIS PATIEN TS. Business Banker ID - ANSBERTOGOperator ID - ANSBERTOGOperator ID - ANSBERTOGOperator ID - ANSBERTOGOperatorID - ANSBERTOGOperator ID - ANSBERTOGOperator ID - ANSBERTOGOperator ID - ANSBERTOGOperator ID - ANSBERTOGOperator ID - ANSBERTOGOperator ID - ANSBERTOGOperator ID - ANSBERTOGOperator ID - ANSBERTOG CBC W/PLT COUNT & AUTO [id number] 05:05:00 Test Item Value Reference Range Interpretation [...] PERCENT (BEAKER) (test code = 2801) POCT-GLUCOSE [id number] 22:18:00 Test Item Value Reference Range Interpretation Comments POC-GLUCOSE METER 190 mg/dL 70-110 H : TESTED A T [facility] [address] (BEAKER) (test code [address], = 1538) [place] [address]: Business Banker/Techni cornelia ID = [id number] for John Basilio POCT-GLUCOSE [id number] 15:30:00 Test Item Value Reference Range Interpretation Comments POC-GLUCOSE METER 197 mg/dL 70-110 H : TESTED A T [address] (BEAKER) (test code [address], = 1538) [place] [id number]: Business Banker/Techni cornelia ID = [id number] for Jesi Espinal Protein electrophoresis, [id number] 14:18:00 Test Item Value Reference Range Interpretation Comments Albumin Fraction 2.5 See_Comment L [Automated (test code = 405) message] [employer] system which generated this result transmitted reference range : 3.5 - 5.5 gm/dL . The reference range was not used to interpr et this result as normal/abnormal . Alpha 1 Fraction 0.3 See_Comment [Automated (test code = 389) message] [employer] system which generated this result transmitted reference range : 0.2 - 0.4 gm/dL . The reference range was not used to interpr et this result as normal/abnormal . Alpha 2 Fraction 0.8 See_Comment [Automated (test code = 390) message] [employer] system which generated this result transmitted reference [...] 5.4 See_Comment L [Autom ated code = 2950) message] The system which generated this result transmitted reference range : 6.0 - 8.3 gm/dL . The reference range was not used to interpr et this result as normal/abnormal . ISSA (test code = ISSA) Business Banker ID - PIAYA L Lab Interpretation Abnormal (test code = 37198-9) [facility] [id number] 14:18:00 Test Item Value Reference Range Interpretation Comments Albumin Fraction 2.5 See_Comment L [Automated (test code = 405) message] [employer] system which generated this result transmitted reference [...] See_Comment [Automated (test code = 390) message] [employer] system which generated this result transmitted reference [...] 5.4 See_Comment L [Autom ated code = 3236) message] The system which generated this result transmitted reference range : 6.0 - 8.3 gm/dL . The reference range was not used to interpr et this result as normal/abnormal . ISSA (test code = ISSA) Business Banker ID - PIAYA L Lab Interpretation Abnormal (test code = 32250-8) [facility] [id number] 14:18:00 Test Item Value Reference Range Interpretation Comments Albumin Fraction 2.5 See_Comment L [Automated (test code = 405) message] T he system which generated this result transmitted reference range : 3.5 - 5.5 gm/dL . The reference range was not used to interpr et this result as normal/abnormal . Alpha 1 Fraction 0.3 See_Comment [Automated (test code = 389) message] T [employer] system which generated this result transmitted reference range : 0.2 - 0.4 gm/dL . The reference range was not used to interpr et this result as normal/abnormal . Alpha 2 Fraction 0.8 See_Comment [Automated (test code = 390) message] T [employer] system which generated this result transmitted reference [...] 5.4 See_Comment L [Autom ated code = 8008) message] The system which generated this result transmitted reference range : 6.0 - 8.3 gm/dL . The reference range was not used to interpr et this result as normal/abnormal . ISSA (test code = ISSA) Business Banker ID - PIAYA L Lab Interpretation Abnormal (test code = 37045-3) [facility] [id number] 14:18:00 Test Item Value Reference Range Interpretation Comments Albumin Fraction 2.5 See_Comment L [Automated (test code = 405) message] T system which generated this result transmitted reference range : 3.5 - 5.5 gm/dL . The reference range was not used to interpr et this result as normal/abnormal . Alpha 1 Fraction 0.3 See_Comment [Automated (test code = 389) message] T [employer] system which generated this result transmitted reference range : 0.2 - 0.4 gm/dL . The reference range was not used to interpr et this result as normal/abnormal . Alpha 2 Fraction 0.8 See_Comment [Automated (test code = 390) message] T [employer] system which generated this result transmitted reference [...] normal/abnormal . ISSA (test code = ISSA) Business Banker ID - PIAYA L Lab Interpretation Abnormal (test code = 05957-4) [facility] [id number] 14:18:00 Test Item Value Reference Range Interpretation Comments Albumin Fraction 2.5 See_Comment L [Automated (test code = 405) message] T [employer] system which generated this result transmitted reference range : 3.5 - 5.5 gm/dL . The reference range was not used to interpr et this result as normal/abnormal . Alpha 1 Fraction 0.3 See_Comment [Automated (test code = 389) message] T [employer] system which generated this result transmitted reference range : 0.2 - 0.4 gm/dL . The reference range was not used to interpr et this result as normal/abnormal . Alpha 2 Fraction 0.8 See_Comment [Automated (test code = 390) message] [employer] system which generated this result transmitted reference [...] normal/abnormal . ISSA (test code = ISSA) Business Banker ID - PIAYA L Lab Interpretation Abnormal (test code = 84404-9) [facility] [id number] 14:18:00 Test Item Value Reference Range Interpretation Comments Albumin Fraction 2.5 See_Comment L [Automated (test code = 405) message] T system which generated this result transmitted reference range : 3.5 - 5.5 gm/dL . The reference range was not used to interpr et this result as normal/abnormal . Alpha 1 Fraction 0.3 See_Comment [Automated (test code = 389) message] T [employer] system which generated this result transmitted reference range : 0.2 - 0.4 gm/dL . The reference range was not used to interpr et this result as normal/abnormal . Alpha 2 Fraction 0.8 See_Comment [Automated (test code = 390) message] [employer] system which generated this result transmitted reference [...] normal/abnormal . ISSA (test code = ISSA) Business Banker ID - PIAYA L Lab Interpretation Abnormal (test code = 50569-2) [facility] [id number] 14:18:00 Test Item Value Reference Range Interpretation Comments Albumin Fraction 2.5 See_Comment L [Automated (test code = 405) message] [employer] system which generated this result transmitted reference range : 3.5 - 5.5 gm/dL . The reference range was not used to interpr et this result as normal/abnormal . Alpha 1 Fraction 0.3 See_Comment [Automated (test code = 389) message] [employer] system which generated this result transmitted reference range : 0.2 - 0.4 gm/dL . The reference range was not used to interpr et this result as normal/abnormal . Alpha 2 Fraction 0.8 See_Comment [Automated (test code = 390) message] [employer] system which generated this result transmitted reference [...] normal/abnormal . ISSA (test code = ISSA) Business Banker ID - PIAYA L Lab Interpretation Abnormal (test code = 02715-9) [facility]LECT[facility]ORESIS, [id number] 14:18:00 Test Item Value Reference Range Interpretation [...] of acute inflammation. No monoclonal bands detected. [id number] Angela Howe MD (BEAKER) (test code = (electronic signature) 2616) PROTEIN TOTAL SERUM, 5.4 gm/dL 6.0-8.3 L SPEP (BEAKER) (test code = 2660) Business Banker ID - PIAYA LANAEROBIC [id number] 14:06:00 Test Item Value Reference Range Interpretation Comments CULTURE (BEAKER) (test No anaerobes isolated code = 1095) ANAEROBIC [id number] 14:05:00 Test Item Value Reference Range Interpretation Comments CULTURE (BEAKER) (test No anaerobes isolated code = 1095) POCT-GLUCOSE [id number] 11:50:00 Test Item Value Reference Range Interpretation Comments POC-GLUCOSE METER 151 mg/dL 70-110 H : TESTED A T [address] (CECILIO) (test code [address], = 1538) [facility] [address]: Business Banker/Techni cornelia ID = [id number] for Jesi Espinal, NON-TUNNELED CATH/PICC >5 Y.O. WITH [id number] 11:32:00Reason for exam:->PICC line placement for penitentiary IV abx. Okay to place per Nephrology [facility] HAYWARDName: FRANDY FORD : 1975 Sex: MFINAL REPORT Procedure: PICC line insertion. History: Need for long- term IV access. Buncher Machine: Charlie Grigsby MD. Flying I Instructor: None Modality: Sonography and fluoroscopy. DOSE [...] All personnel used personal protective equipment. The operators additionally [...] target vein followed by placement of an 018wire. The wire was advanced under fluoroscopic guidance [...] and fluoroscopic guided placement of a 5 Togolese dual lumen PICC line via a right mid upper arm brachial vein approach with the catheter tip in distal SVC/RA, a satisfactory position for use. Thank you for the opportunity to assist in the care of your patient. Signed: Charlie Grigsby MDReport Verified Date/Time: 04/05/2020 11:32:55 Reading Location: [facility] Radiology Reading Room IR PICC line placement older than 5 [id number] 11:32:00Interface, External Ris In - 04/05/2020 11:35 AM CSTFINAL REPORT Procedure: PICC line insertion. History: Need for long-term IV access. Buncher Machine: Charlie Grigsby MD. Flying I Instructor: None Modality: Sonography and fluoroscopy. DOSE REDUCTION: The examination was performed according to departmental dose- optimization program. Fluoro time: 17 seconds and 0 [...] All personnel used personal protective equipment. The operators additionally [...] placed in the proximal upper arm. Using real-timeultrasonographic guidance after local anesthesia and dermatotomy, a micropuncture needle was advanced into the target vein followed by placement of an 018 wire. The wire was advanced under fluoroscopicguidance into the central venous system. Over the wire a peel- away sheath was placed. A PICC line was trimmed to an appropriate length and introduced through the peel-away sheath. The catheter tip was positioned at the distal SVC/RA. The catheter aspirated and flushed well. The catheter was terminallypacked with normal saline. The catheter was secured to skin using nonabsorbable suture and/or an adhesive device. An aseptic dressing was applied. The patient was discharged from the department in stable condition. Complications: None immediate. Impression: Successful ultrasound and fluoroscopic guided placement of a 5 Togolese dual lumen PICC line via a right mid upper arm brachial vein approach withthe catheter tip in distal SVC/RA, a satisfactory position for use. Thank you for the opportunity toassist in the care of your patient. Signed: Charlie Grigsby MDReport Verified Date/Time: 04/05/2020 11:32:55 Reading Location: [facility] than 5 [id number] 11:32:00 Interface, External Ris In - 04/05/2020 11:35 AM CSTFINAL REPORT Procedure: PICC line insertion. History: Need for long-term IV access. Buncher Machine: Charlie Grigsby MD. Flying I Instructor: None Modality: Sonography and fluoroscopy. DOSE [...] All personnel used personal protective equipment. The operators additionally used sterile gown and gloves. A preliminary ultrasonogram of the Right upper extremity was performed. It revealed a patent and compressible right mid upper arm brachial vein. Pertinentultrasound images were stored for documentation in the PACS. Sterile prep and drape of the mid upperarm surgical site was performed. A tourniquet was placed in the proximal upper arm. Using real-time u ltrasonographic guidance after local anesthesia and dermatotomy, a micropuncture needle was advancedinto the target vein followed by placement of an 018 wire. The wire was advanced under fluoroscopic guidance into the central venous system. Over the wire a peel-away sheath was placed. A PICC line wastrimmed to an appropriate length and introduced through [...] and fluoroscopic guided placement of a 5 Togolese dual lumen PICC line via a right mid upper arm brachial vein approach with the catheter tip in distal SVC/RA, a satisfactory position for use. Thank you for the opportunity to assist in the care of your patient. Signed: Charlie Grigsby MDReport Verified Date/Time: 04/05/2020 11:32:55 Reading Location: [facility] placement older than 5 [id number] 11:32:00 Interface, External Ris In - 04/05/2020 11:35 AM CSTFINAL REPORT Procedure: PICC line insertion. History: Need for long-term IV access. Buncher Machine: Charlie Grigsby MD. Flying I Instructor: None Modality: Sonography and fluoroscopy. DOSE [...] All personnel used personal protective equipment. The operators additionally used sterile gown and gloves. A preliminary ultrasonogram of the Right upper extremity was performed. It revealed a patent and compressible right mid upper arm brachial vein. Pertinentultrasound images were stored for documentation in the PACS. Sterile prep and drape of the mid upperarm surgical site was performed. A tourniquet was placed in the proximal upper arm. Using real-time u ltrasonographic guidance after local anesthesia and dermatotomy, a micropuncture needle was advancedinto the target vein followed by placement of an 018 wire. The wire was advanced under fluoroscopic guidance into the central venous system. Over the wire a peel-away sheath was placed. A PICC line wastrimmed to an appropriate length and introduced through [...] None immediate. Impression: Successful ultrasound and fluoroscopic guidedplacement of a 5 Togolese dual lumen PICC line via a right mid upper arm brachial vein approach with the catheter tip in distal SVC/RA, a satisfactory position for use. Thank you for the opportunity to assist in the care of your patient. Signed: Charlie Grigsby Verified Date/Time: 04/05/2020 11:32:55 Reading Location: [facility] placement older than 5 [id number] 11:32:00 Interface, External Ris In - 04/05/2020 11:35 AM CSTFINAL REPORT Procedure: PICC line insertion. History: Need for long-term IV access. Buncher Machine: Charlie Grigsby MD. Flying I Instructor: None Modality: Sonography and fluoroscopy. DOSE [...] and agreed to proceed. A universal timeout wasperformed prior to starting the procedure. All personnel used personal protective equipment. The operators additionally [...] through the peel-away sheath. The catheter tip waspositioned at the distal SVC/RA. The catheter aspirated and flushed well. The catheter was terminally packed with normal saline. The catheter was secured to skin using nonabsorbable suture and/or an adhesive device. An aseptic dressing was applied. The patient was discharged from the department in stable condition. Complications: None immediate. Impression: Successful ultrasound and fluoroscopic guided placement of a 5 Togolese dual lumen PICC line via a right mid upper arm brachial vein approach with the catheter tip in distal SVC/RA, a satisfactory position for use. Thank you for the opportunity to assist in the care of your patient. Signed: Charlie Grigsby MDReport Verified Date/Time: 04/05/2020 11:32:55 Reading Location: [facility] Radiology Reading [facility] [id number] 09:34:00 Test Item Value Reference Range Interpretation Comments POC-GLUCOSE METER 72 mg/dL 70-110 : TESTED A T [address] (BEAKER) (test code = [address], 1538) [facility] [address]: Business Banker/Techni cornelia ID = [id number] for ChenchoRina moser POCT-GLUCOSE [id number] 08:11:00 Test Item Value Reference Range Interpretation Comments POC-GLUCOSE METER 83 mg/dL 70-110 : TESTED A T [address] (BEAKER) (test code = [address], 1538) [facility] [address]: Business Banker/Techni cornelia ID = [id number] for Buff ord, Jesi BASIC METABOLIC [id number] 06:57:00 Test Item Value Reference Range Interpretation [...] S NOT APPLICABLE FOR DIALYSIS PATIEN TS. Business Banker ID - LITOOperator ID - LITOOperator ID - LITOOperator ID - LITOOperator ID - LITOOperator ID - LITOOperator ID - LITOOperator ID - LITOOperator ID - LITOOperator ID - LITOOperator ID - LITOOperator ID - LITOOperator ID - LITOCBC W/PLT COUNT & AUTO [id number] 05:55:00 Test Item Value Reference Range Interpretation [...] = No growth in 5 days 6463-4) [facility]2020-04-05 01:01:00 Test Item Value Reference Range Interpretation Comments Result (test code = No growth in 5 days 6463-4) [facility] Culture - Routine (Left Venipuncture)2020-04-05 01:01:00 Test Item Value Reference Range Interpretation Comments Result (test code = No growth in 5 days 6463-4) [facility] Culture - Routine (Left Venipuncture)2020-04-05 01:01:00 Test Item Value Reference Range Interpretation Comments Result (test code = No growth in 5 days 6463-4) [facility] Culture - Routine (Left Venipuncture)2020-04-05 01:01:00 Test Item Value Reference Range Interpretation Comments Result (test code = No growth in 5 days 6463-4) [facility] Culture - Routine (Left Venipuncture)2020-04-05 01:01:00 Test Item Value Reference Range Interpretation Comments Result (test code = No growth in 5 days 6463-4) [facility] Culture - Routine (Left Venipuncture)2020-04-05 01:01:00 Test Item Value Reference Range Interpretation Comments Result (test code = No growth in 5 days 6463-4) [facility] [id number] 01:01:00 Test Item Value Reference Range Interpretation Comments CULTURE (BEAKER) (test No growth in 5 days code = 1095) BLOOD [id number] 01:01:00 Test Item Value Reference Range Interpretation Comments CULTURE (BEAKER) (test No growth in 5 days code = 1095) Vancomycin level, [id number] 00:11:00 Test Item Value Reference Range Interpretation Comments Vancomycin Tr (test code = 17.1 ug/mL 10-20 4092-3) ISSA (test code = ISSA) Business Banker ID - ARCHIE Lab Interpretation (test Normal code = 75008-9) [facility], [id number] 00:11:00 Test Item Value Reference Range Interpretation Comments Vancomycin Tr (test code = 17.1 ug/mL 10-20 4092-3) ISSA (test code = ISSA) Business Banker ID - ARCHIE Lab Interpretation (test Normal code = 66273-6) [facility], [id number] 00:11:00 Test Item Value Reference Range Interpretation Comments Vancomycin Tr (test code = 17.1 ug/mL 10-20 4092-3) ISSA (test code = ISSA) Business Banker ID - ARCHIE Lab Interpretation (test Normal code = 38516-1) [facility], [id number] 00:11:00 Test Item Value Reference Range Interpretation Comments Vancomycin Tr (test code = 17.1 ug/mL 10-20 4092-3) ISSA (test code = ISSA) Business Banker ID - ARCHIE Lab Interpretation (test Normal code = 97872-6) [facility], [id number] 00:11:00 Test Item Value Reference Range Interpretation Comments Vancomycin Tr (test code = 17.1 ug/mL 10.0-20.0 4092-3) ISSA (test code = ISSA) Business Banker ID - ARCHIE Lab Interpretation (test Normal code = 71326-1) [facility], [id number] 00:11:00 Test Item Value Reference Range Interpretation Comments Vancomycin Tr (test code = 17.1 ug/mL 10.0-20.0 4092-3) ISSA (test code = ISSA) Business Banker ID - ARCHIE Lab Interpretation (test Normal code = 97127-0) [facility], [id number] 00:11:00 Test Item Value Reference Range Interpretation Comments Vancomycin Tr (test code = 17.1 ug/mL 10.0-20.0 4092-3) ISSA (test code = ISSA) Business Banker ID - ARCHIE Lab Interpretation (test Normal code = 13160-9) [facility], [id number] 00:11:00 Test Item Value Reference Range Interpretation Comments VANCOMYCIN TROUGH (BEAKER) (test 17.1 ug/mL 10.0-20.0 code = 522) Business Banker ID - LITOPOCT-GLUCOSE [id number] 21:26:00 Test Item Value Reference Range Interpretation Comments POC-GLUCOSE METER 234 mg/dL 70-110 H : TESTED A T [address] (BEAKER) (test code [address], = 1538) [place] [address]: Business Banker/Techni cornelia ID = [id number] for Tiff Roach POCT-GLUCOSE [id number] 15:54:00 Test Item Value Reference Range Interpretation Comments POC-GLUCOSE METER 200 mg/dL 70-110 H : TESTED A T [address] (BEAKER) (test code [address], = 1538) [place] [address]: Business Banker/Techni cornelia ID = [id number] for Tiff Roach POCT-GLUCOSE [id number] 11:48:00 Test Item Value Reference Range Interpretation Comments POC-GLUCOSE METER 197 mg/dL 70-110 H : TESTED A T [address] (BEAKER) (test code [address], = 1538) [place] [address]: Business Banker/Techni cornelia ID = [id number] for Tiff Roach Hepatitis panel, [id number] 10:58:00 Test Item Value Reference Range Interpretation Comments Hep A IgM (test code = Nonreactive Nonreactive 00911-7) Hep B C IgM (test code = Nonreactive Nonreactive 51078-5) Hepatitis C Ab (test Nonreactive Nonreactive code = 54164-1) HBsAg Screen (test code Nonreactive Nonreactive = 5195-3) ISSA (test code = ISSA) Business Banker ID - BARRERA M Lab Interpretation (test Normal code = 77446-7) [facility] [id number] 10:58:00 Test Item Value Reference Range Interpretation Comments Hep A IgM (test code = Nonreactive Nonreactive 08849-8) Hep B C IgM (test code = Nonreactive Nonreactive 50379-4) Hepatitis C Ab (test Nonreactive Nonreactive code = 31773-9) HBsAg Screen (test code Nonreactive Nonreactive = 5195-3) ISSA (test code = ISSA) Business Banker ID - BARRERA M Lab Interpretation (test Normal code = 76737-0) [facility] panel, [id number] 10:58:00 Test Item Value Reference Range Interpretation Comments Hep A IgM (test code = Nonreactive Nonreactive 96230-1) Hep B C IgM (test code = Nonreactive Nonreactive 98789-1) Hepatitis C Ab (test Nonreactive Nonreactive code = 34316-4) HBsAg Screen (test code Nonreactive Nonreactive = 5195-3) ISSA (test code = ISSA) Business Banker ID - BARRERA M Lab Interpretation (test Normal code = 83023-1) [facility] panel, [id number] 10:58:00 Test Item Value Reference Range Interpretation Comments Hep A IgM (test code = Nonreactive Nonreactive 75458-3) Hep B C IgM (test code = Nonreactive Nonreactive 60967-0) Hepatitis C Ab (test Nonreactive Nonreactive code = 51769-4) HBsAg Screen (test code Nonreactive Nonreactive = 5195-3) ISSA (test code = ISSA) Business Banker ID - BARRERA M Lab Interpretation (test Normal code = 59527-3) [facility] panel, [id number] 10:58:00 Test Item Value Reference Range Interpretation Comments Hep A IgM (test code = Nonreactive Nonreactive 76615-7) Hep B C IgM (test code = Nonreactive Nonreactive 61228-2) Hepatitis C Ab (test Nonreactive Nonreactive code = 84197-7) HBsAg Screen (test code Nonreactive Nonreactive = 5195-3) ISSA (test code = ISSA) Business Banker ID - BARRERA M Lab Interpretation (test Normal code = 11231-0) [facility] panel, [id number] 10:58:00 Test Item Value Reference Range Interpretation Comments Hep A IgM (test code = Nonreactive Nonreactive 94157-7) Hep B C IgM (test code = Nonreactive Nonreactive 81583-8) Hepatitis C Ab (test Nonreactive Nonreactive code = 02194-1) HBsAg Screen (test code Nonreactive Nonreactive = 5195-3) ISSA (test code = ISSA) Business Banker ID - BARRERA M Lab Interpretation (test Normal code = 35175-1) [facility], [id number] 10:58:00 Test Item Value Reference Range Interpretation Comments Hep A IgM (test code = Nonreactive Nonreactive 14814-6) Hep B C IgM (test code = Nonreactive Nonreactive 44246-8) Hepatitis C Ab (test Nonreactive Nonreactive code = 95924-0) HBsAg Screen (test code Nonreactive Nonreactive = 5195-3) ISSA (test code = ISSA) Business Banker ID - [id number] M Lab Interpretation (test Normal code = 27491-6) [facility] PANEL, [id number] 10:58:00 Test Item Value Reference Range Interpretation Comments HEPATITIS A IGM ANTIBODY (BEAKER) Nonreactive Nonreactive (test code = 498) HEPATITIS B CORE IGM ANTIBODY Nonreactive Nonreactive (BEAKER) (test code = 645) HEPATITIS C ANTIBODY (BEAKER) Nonreactive Nonreactive (test code = 367) HEPATITIS B SURFACE ANTIGEN (2) Nonreactive Nonreactive (BEAKER) (test code = 2585) Business Banker ID - BARRERA MUREA NITROGEN, RANDOM [id number] 10:45:00 Test Item Value Reference Range Interpretation Comments UREA NITROGEN URINE (BEAKER) (test 528 mg/dL code = 538) Reference Range: No NormalsOperator ID - BARRERA MSURGICALLY OBTAINED CULTURE + GRAM [id number] 10:30:00 Test Item Value Reference Range Interpretation Comments CULTURE (BEAKER) A <1+ Coagula se negative (test code = Staphylococcus 1095) GRAM STAIN No WBCs RESULT (BEAKER) (test code = 1123) GRAM STAIN 2+ gram positive RESULT (BEAKER) cocci in pairs (test code = and clusters 098793) SURGICALLY OBTAINED CULTURE + GRAM [id number] 09:52:00 Test Item Value Reference Range Interpretation Comments CULTURE (BEAKER) A <1+ Viridan s (test code = Streptococcus 1095) GRAM STAIN No WBCs RESULT (BEAKER) (test code = 1123) GRAM STAIN No organisms seen RESULT (BEAKER) (test code = 972780) TISSUE [id number] 09:51:00Surgical Pathology Report Case: [id number] Authorizing Provider: Laura Nguyen DPM Collected: 04/01/2020 01:12 PM Ordering Location: [facility] Surg 5th Floor Received: 04/02/2020 08:38 AM Pathologist: Hilda Mack MD Specimen: Foot, Left, Bone biopsy 1st metatarsal, left BONE, FIRSTLEFT METATARSAL, BIOPSY: - BONE WITH FOCAL REPARATIVE/REGENERATIVE CHANGES - NO ACUTE OSTEOMYELITISIS SEEN Signing Pathologist Direct Phone Line: [phone] signed by Hilda Mack MD on 04/04/2020 at 9:51 [id number]; [id number] infectionBone biopsy first metatarsal, leftThe specimen is received in fixative and labeled with the patient's name, medical record number and designated as "foot left" and consists of a bone core biopsy measuring 1.5 cm in length and 0.2 cm in diameter. The specimen is entirely submitted into A1 and into decal solution. MG/pl Performed [facility], Department of Pathology, [address] [place] [address], [facility], Department of Pathology, [address] [place] [address], [facility], [facility] of [facility], [address] [place] [address], KHPU-GLUCOSE METER 2020-04-04 08:22:00 Test Item Value Reference Range Interpretation Comments POC-GLUCOSE METER 167 mg/dL 70-110 H : TESTED A T [facility] [address] (BEAKER) (test code [facility] [facility] [address], = [address]) [place] [address]: Business Banker/Techni cornelia ID = [id number] for Tiff Roach PTH, [id number] 07:24:00 Test Item Value Reference Range Interpretation Comments PARATHYROID HORMONE INTACT 365.7 pg/mL 15.0-90.0 H (BEAKER) (test code = 577) Business Banker ID - [id number] METABOLIC [id number] 06:33:00 Test Item Value Reference Range Interpretation [...] S NOT APPLICABLE FOR DIALYSIS PATIEN TS. Business Banker ID - [id number] ID - [id number] ID - [id number] ID - [id number] ID - [id number] ID - [id number] ID - [id number] ID - [id number] ID - [id number] ID - [id number] ID - [id number] ID - [id number] ID - [id number] W/PLT COUNT & AUTO [id number] 06:01:00 Test Item Value Reference Range Interpretation [...] PERCENT (BEAKER) (test code = 2801) POCT-GLUCOSE [id number] 21:43:00 Test Item Value Reference Range Interpretation Comments POC-GLUCOSE METER 242 mg/dL 70-110 H : TESTED A T [facility] [address] (BEAKER) (test code [facility] [address], = [address]) [facility] [address]: Business Banker/Techni cornelia ID = [id number] for Heidy Barrow HIV-1 Antigen with HIV-1/2 [id number] 18:37:00 Test Item Value Reference Range Interpretation Comments HIV-1 Antigen with HIV Nonreactive Nonreactive 1&2 Antibody (test code = 06530-8) ISSA (test code = ISSA) Business Banker ID - [id number] Lab Interpretation (test Normal code = 96823-0) [facility]2 [id number] 18:37:00 Test Item Value Reference Range Interpretation Comments HIV-1 Antigen with HIV Nonreactive Nonreactive 1&2 Antibody (test code = 57182-8) ISSA (test code = ISSA) Business Banker ID - [id number] Lab Interpretation (test Normal code = 51359-3) [facility]/2 [id number] 18:37:00 Test Item Value Reference Range Interpretation Comments HIV-1 Antigen with HIV Nonreactive Nonreactive 1&2 Antibody (test code = 81625-9) ISSA (test code = ISSA) Business Banker ID - [id number] Lab Interpretation (test Normal code = 01342-3) [facility]-1/2 [id number] 18:37:00 Test Item Value Reference Range Interpretation Comments HIV-1 Antigen with HIV Nonreactive Nonreactive 1&2 Antibody (test code = 29727-9) ISSA (test code = ISSA) Business Banker ID - [id number] Lab Interpretation (test Normal code = 50082-8) [facility] HIV-1/2 [id number] 18:37:00 Test Item Value Reference Range Interpretation Comments HIV-1 Antigen with HIV Nonreactive Nonreactive 1&2 Antibody (test code = 76635-5) ISSA (test code = ISSA) Business Banker ID - [id number] Lab Interpretation (test Normal code = 81490-8) [facility] HIV-1/2 [id number] 18:37:00 Test Item Value Reference Range Interpretation Comments HIV-1 Antigen with HIV Nonreactive Nonreactive 1&2 Antibody (test code = 53064-2) ISSA (test code = ISSA) Business Banker ID - [id number] Lab Interpretation (test Normal code = 48845-0) [facility] HIV-1/2 [id number] 18:37:00 Test Item Value Reference Range Interpretation Comments HIV-1 Antigen with HIV Nonreactive Nonreactive 1&2 Antibody (test code = 89088-5) ISSA (test code = ISSA) Business Banker ID - [id number] Lab Interpretation (test Normal code = 11925-8) [facility] ANTIGEN WITH HIV-1/2 [id number] 18:37:00 Test Item Value Reference Range Interpretation Comments HIV-1 ANTIGEN WITH HIV 1\\T\\2 Nonreactive Nonreactive ANTIBODY (2) (BEAKER) (test code = 2586) Business Banker ID - [id number] METABOLIC [id number] 17:38:00 Test Item Value Reference Range Interpretation [...] S NOT APPLICABLE FOR DIALYSIS PATIEN TS. Business Banker ID - [id number] ID - [id number] ID - [id number] ID - [id number] ID - [id number] ID - [id number] ID - [id number] ID - [id number] ID - [id number] ID - [id number] ID - [id number] ID - [id number] ID - [id number] W/PLT COUNT & AUTO [id number] 17:24:00 Test Item Value Reference Range Interpretation [...] PERCENT (BEAKER) (test code = 2801) POCT-GLUCOSE [id number] 16:16:00 Test Item Value Reference Range Interpretation Comments POC-GLUCOSE METER 228 mg/dL 70-110 H : TESTED A T [facility] [address] (BEAKER) (test code [address], = [address]) [facility] [address]: Business Banker/Techni cornelia ID = [id number] for Tiff Roach WOUND CULTURE + GRAM [id number] 14:46:00 Test Item Value Reference Interpretation Comments [...] 4+ Mixed geri (BEAKER) (test code = 009858) 3+ Skin floraPOCT-GLUCOSE [id number] 11:46:00 Test Item Value Reference Range Interpretation Comments POC-GLUCOSE METER 251 mg/dL 70-110 H : TESTED A T [facility] [address] (BEAKER) (test code [address], = 15[address]) [facility] [address]: Business Banker/Techni cornelia ID = [id number] for Tiff Roach PROTEIN, RANDOM [id number] 11:18:00 Test Item Value Reference Range Interpretation Comments PROTEIN, URINE (BEAKER) (test code 214 mg/dL 0-14 H = 1569) Business Banker ID - [id number] ID - [id number], RANDOM [id number] 11:02:00 Test Item Value Reference Range Interpretation Comments CREATININE URINE (BEAKER) (test 129.1 mg/dL code = 375) Reference Range: No NormalsOperator ID - [id number], RANDOM [id number] 11:00:00 Test Item Value Reference Range Interpretation Comments SODIUM URINE (BEAKER) (test code = 20 meq/L 243) Reference Range: No NormalsOperator ID - [id number] 11:00:00 Test Item Value Reference Range Interpretation Comments PHOSPHORUS (BEAKER) (test code = 5.0 mg/dL 2.5-4.5 H 604) Business Banker ID - [id number] w/Hnxfnichzjx6375-32-59 10:57:00 Test Item Value Reference Range Interpretation Comments Color, UA (test code Yellow = 5778-6) Clarity, UA (test Slightly Cloudy code = 5767-9) Specific [place], UA 1.025 1.001-1.035 (test code = 5811-5) pH, UA (test code = 5.0 5.0-8.0 5803-2) Protein, UA (test 100 mg/dL Negative A code = 39555-0) Glucose, UA (test Negative Negative code = 365) Ketones, UA (test Negative Negative code = 2514-8) Bilirubin, UA (test Negative Negative code = 50249-9) Blood, UA (test code Small Negative A = 75284-2) Nitrite, UA (test Negative Negative code = 5802-4) Leukocytes, UA (test Negative Negative code = 5799-2) Urobilinogen, UA 0.2 mg/dL 0.2-1 (test code = 82883-3) Bacteria, UA (test Occasional code = 98174-2) RBC, UA (test code = 5-10 See_Comment [Autom ated 799-7) message] The system which generated this result transmitted reference range : /HPF. The reference range was not used to interpret this result as normal/abnormal . WBC, UA (test code = <5 See_Comment [Autom ated 02288-1) message] The system which generated this result transmitted reference range : /HPF. The reference range was not used to interpret this result as normal/abnormal . SQUAMOUS EPITHELIAL <5 See_Comment [Automa josé luis (test code = 41854-5) messag e] The system which generated this result transmitted reference range : /HPF. The reference range was not used to interpret this result as normal/abnormal . Specimen Source (test code = 2795) Lab Interpretation Abnormal (test code = 95844-7) [facility]/[id number] 10:57:00 Test Item Value Reference Range Interpretation Comments Color, UA (test code Yellow = 5778-6) Clarity, UA (test Slightly Cloudy code = 5767-9) Specific [place], UA 1.025 1.001-1.035 (test code = 5811-5) pH, UA (test code = 5.0 5.0-8.0 5803-2) Protein, UA (test 100 mg/dL Negative A code = 83288-0) Glucose, UA (test Negative Negative code = 365) Ketones, UA (test Negative Negative code = 2514-8) Bilirubin, UA (test Negative Negative code = 10157-0) Blood, UA (test code Small Negative A = 10627-3) Nitrite, UA (test Negative Negative code = 5802-4) Leukocytes, UA (test Negative Negative code = 5799-2) Urobilinogen, UA 0.2 mg/dL 0.2-1 (test code = 67046-6) Bacteria, UA (test Occasional code = 61385-8) RBC, UA (test code = 5-10 See_Comment [Autom ated 799-7) message] The system which generated this result transmitted reference range : /HPF. The reference range was not used to interpret this result as normal/abnormal . WBC, UA (test code = <5 See_Comment [Autom ated 20176-7) message] The system which generated this result transmitted reference range : /HPF. The reference range was not used to interpret this result as normal/abnormal . SQUAMOUS EPITHELIAL <5 See_Comment [Automa josé luis (test code = 67045-0) messag e] The system which generated this result transmitted reference range : /HPF. The reference range was not used to interpret this result as normal/abnormal . Specimen Source (test code = 2795) Lab Interpretation Abnormal (test code = 30199-0) [facility]/Uuwdihcneab1674-29-86 10:57:00 Test Item Value Reference Range Interpretation Comments Color, UA (test code Yellow = 5778-6) Clarity, UA (test Slightly Cloudy code = 5767-9) Specific [place], UA 1.025 1.001-1.035 (test code = 5811-5) pH, UA (test code = 5.0 5.0-8.0 5803-2) Protein, UA (test 100 mg/dL Negative A code = 92504-4) Glucose, UA (test Negative Negative code = 365) Ketones, UA (test Negative Negative code = 2514-8) Bilirubin, UA (test Negative Negative code = 80464-2) Blood, UA (test code Small Negative A = 84957-1) Nitrite, UA (test Negative Negative code = 5802-4) Leukocytes, UA (test Negative Negative code = 5799-2) Urobilinogen, UA 0.2 mg/dL 0.2-1 (test code = 37644-6) Bacteria, UA (test Occasional code = 74444-7) RBC, UA (test code = 5-10 See_Comment [Autom ated 799-7) message] The system which generated this result transmitted reference range : /HPF. The reference range was not used to interpret this result as normal/abnormal . WBC, UA (test code = <5 See_Comment [Autom ated 34533-0) message] The system which generated this result transmitted reference range : /HPF. The reference range was not used to interpret this result as normal/abnormal . SQUAMOUS EPITHELIAL <5 See_Comment [Automa josé luis (test code = 26643-0) messag e] The system which generated this result transmitted reference range : /HPF. The reference range was not used to interpret this result as normal/abnormal . Specimen Source (test code = 2795) Lab Interpretation Abnormal (test code = 20414-2) [facility]/Wjeujyhpcom5281-65-20 10:57:00 Test Item Value Reference Range Interpretation Comments Color, UA (test code Yellow = 5778-6) Clarity, UA (test Slightly Cloudy code = 5767-9) Specific [place], UA 1.025 1.001-1.035 (test code = 5811-5) pH, UA (test code = 5.0 5.0-8.0 5803-2) Protein, UA (test 100 mg/dL Negative A code = 30814-3) Glucose, UA (test Negative Negative code = 365) Ketones, UA (test Negative Negative code = 2514-8) Bilirubin, UA (test Negative Negative code = 61286-7) Blood, UA (test code Small Negative A = 45093-8) Nitrite, UA (test Negative Negative code = 5802-4) Leukocytes, UA (test Negative Negative code = 5799-2) Urobilinogen, UA 0.2 mg/dL 0.2-1 (test code = 46866-5) Bacteria, UA (test Occasional code = 45137-4) RBC, UA (test code = 5-10 See_Comment [Autom ated 799-7) message] The system which generated this result transmitted reference range : /HPF. The reference range was not used to interpret this result as normal/abnormal . WBC, UA (test code = <5 See_Comment [Autom ated 64321-4) message] The system which generated this result transmitted reference range : /HPF. The reference range was not used to interpret this result as normal/abnormal . SQUAMOUS EPITHELIAL <5 See_Comment [Automa josé luis (test code = 01089-6) messag e] The system which generated this result transmitted reference range : /HPF. The reference range was not used to interpret this result as normal/abnormal . Specimen Source (test code = 2795) Lab Interpretation Abnormal (test code = 23881-0) [facility]/Bekzfqjojca9441-50-60 10:57:00 Test Item Value Reference Range Interpretation Comments Color, UA (test code Yellow = 5778-6) Clarity, UA (test Slightly Cloudy code = 5767-9) Specific [place], UA 1.025 1.001-1.035 (test code = 5811-5) pH, UA (test code = 5.0 5.0-8.0 5803-2) Protein, UA (test 100 mg/dL Negative A code = 53160-9) Glucose, UA (test Negative Negative code = 365) Ketones, UA (test Negative Negative code = 2514-8) Bilirubin, UA (test Negative Negative code = 69118-7) Blood, UA (test code Small Negative A = 97313-0) Nitrite, UA (test Negative Negative code = 5802-4) Leukocytes, UA (test Negative Negative code = 5799-2) Urobilinogen, UA 0.2 mg/dL 0.2-1.0 (test code = 40363-7) Bacteria, UA (test Occasional code = 05162-0) RBC, UA (test code = 5-10 See_Comment [Autom ated 799-7) message] The system which generated this result transmitted reference range : /HPF. The reference range was not used to interpret this result as normal/abnormal . WBC, UA (test code = <5 See_Comment [Autom ated 03237-7) message] The system which generated this result transmitted reference range : /HPF. The reference range was not used to interpret this result as normal/abnormal . SQUAMOUS EPITHELIAL <5 See_Comment [Automa josé luis (test code = 14636-1) messag e] The system which generated this result transmitted reference range : /HPF. The reference range was not used to interpret this result as normal/abnormal . Specimen Source (test code = 2795) Lab Interpretation Abnormal (test code = 27160-1) [facility]/Kgribooiegu8344-03-31 10:57:00 Test Item Value Reference Range Interpretation Comments Color, UA (test code Yellow = 5778-6) Clarity, UA (test Slightly Cloudy code = 5767-9) Specific [place], UA 1.025 1.001-1.035 (test code = 5811-5) pH, UA (test code = 5.0 5.0-8.0 5803-2) Protein, UA (test 100 mg/dL Negative A code = 71134-7) Glucose, UA (test Negative Negative code = 365) Ketones, UA (test Negative Negative code = 2514-8) Bilirubin, UA (test Negative Negative code = 61697-5) Blood, UA (test code Small Negative A = 54364-0) Nitrite, UA (test Negative Negative code = 5802-4) Leukocytes, UA (test Negative Negative code = 5799-2) Urobilinogen, UA 0.2 mg/dL 0.2-1.0 (test code = 31071-7) Bacteria, UA (test Occasional code = 89635-6) RBC, UA (test code = 5-10 See_Comment [Autom ated 799-7) message] The system which generated this result transmitted reference range : /HPF. The reference range was not used to interpret this result as normal/abnormal . WBC, UA (test code = <5 See_Comment [Autom ated 08062-7) message] The system which generated this result transmitted reference range : /HPF. The reference range was not used to interpret this result as normal/abnormal . SQUAMOUS EPITHELIAL <5 See_Comment [Automa josé luis (test code = 66092-9) messag e] The system which generated this result transmitted reference range : /HPF. The reference range was not used to interpret this result as normal/abnormal . Specimen Source (test code = 2795) Lab Interpretation Abnormal (test code = 68328-3) [facility]/Iblxocoxvzc5494-52-74 10:57:00 Test Item Value Reference Range Interpretation Comments Color, UA (test code Yellow = 5778-6) Clarity, UA (test Slightly Cloudy code = 5767-9) Specific [place], UA 1.025 1.001-1.035 (test code = 5811-5) pH, UA (test code = 5.0 5.0-8.0 5803-2) Protein, UA (test 100 mg/dL Negative A code = 31265-1) Glucose, UA (test Negative Negative code = 365) Ketones, UA (test Negative Negative code = 2514-8) Bilirubin, UA (test Negative Negative code = 30101-5) Blood, UA (test code Small Negative A = 61298-7) Nitrite, UA (test Negative Negative code = 5802-4) Leukocytes, UA (test Negative Negative code = 5799-2) Urobilinogen, UA 0.2 mg/dL 0.2-1.0 (test code = 21938-3) Bacteria, UA (test Occasional code = 03004-4) RBC, UA (test code = 5-10 See_Comment [Autom ated 799-7) message] The system which generated this result transmitted reference range : /HPF. The reference range was not used to interpret this result as normal/abnormal . WBC, UA (test code = <5 See_Comment [Autom ated 10817-1) message] The system which generated this result transmitted reference range : /HPF. The reference range was not used to interpret this result as normal/abnormal . SQUAMOUS EPITHELIAL <5 See_Comment [Automa josé luis (test code = 32750-4) messag e] The system which generated this result transmitted reference range : /HPF. The reference range was not used to interpret this result as normal/abnormal . Specimen Source (test code = 2795) Lab Interpretation Abnormal (test code = 67398-1) [facility]/ [id number] 10:57:00 Test Item Value Reference Range Interpretation [...] pg/mL 0-100 H (test code = 700) Business Banker ID - [id number], RENAL, QNXZGVWJ6535-06-11 08:56:00Reason for exam:- >[facility] 1975 Sex: MFINAL REPORT BILATERAL RENAL ULTRASOUND History provided: Acute renal insufficiency with chronic kidney disease Right kidney measures 13.4 x 4.9 x 5.8 cm, with a cortical width of 1.5cm. Left kidney measures 11.3 x 5.1 x 4.9 cm, with a cortical width of 1.8 cm. No cystic or solid renal mass. Mildly hyperechogenic renal cortices. No hydronephrosis. Urinary bladder empty. IMPRESSION:No obstructive uropathy. Mildly hyperechogenic kidneys consistent with intrinsic renal disease. Signed: Jerome Ortizort Verified Date/Time: 04/03/2020 08:56:12 Reading Location: [facility] Radiology Reading Room CT, EXTREMITY, LOWER WITHOUT CONTRAST, [id number] 08:50:00Unlisted Reason for Exam - Click Yes and Enter Reason Below->YesL Foot woundUnlisted Reason for Exam->L Foot infection to r/o osteomyelitisPlease specify:->Foot [facility] 1975 Sex: MFINAL [...] tenosynovitis. No bony erosion is identified. No evidenceof acute fracture, or dislocation. There is made of an os trigonum. There is no significant joint effusion. IMPRESSION: Subcutaneous edema of the left distal leg, and foot, no discrete drainable collection is identified on this noncontrast exam. Focal soft tissue thickening and shallow ulceration is no josé luis lateral to the fifth toe. There are also shallow ulcerations at the plantar aspect of the forefoot, with a punctate focus of subcutaneous gas. No CT evidence of osteomyelitis. If there is persistent clinical concern, consider MRI correlation. Signed: Lacie Gonzales Verified Date/Time: 04/03/2020 08:50:03 Reading Location: [place] [id number] Ortho Consult Reading Room CT lower extremity without IV contrast [id number] 08:50:00Interface, External Ris In - 04/03/2020 8:[address] of the left foot without contrast History: Lower leg pain, osteomyelitis suspected, initial examL Foot infection to r/o osteomyelitis Comparisons: Radiograph dated March 30, 2020 Technique: CT of the left foot wasperformed without contrast. Axial images were generated as were multiplanar reformatted images in the coronal and sagittal planes. This exam was performed according to our departmental dose optimization program which includes automated exposure control, adjustment of the mA and/or kV according to patie nt's size and/or use of iterative reconstructive technique. [...] Gonzales Verified Date/Time: 04/03/2020 08:50:03 Reading Location: [facility] C013X [facility] [id number] 08:50:00 Interface, External Ris In - 04/03/2020 [...] joint effusion. IMPRESSION: Subcutaneous edema of the le ft distal leg, and foot, no discrete drainable [...] Gonzales Verified Date/Time: 04/03/2020 08:50:03 Reading Location: [facility] C0X [facility]Consult [facility] [id number] 08:50:00Interface, External Ris In - 04/03/2020 8:[address] of the left foot without contrast History: Lower leg pain, osteomyelitis suspected, initial examL Foot infection to r/o osteomyelitis Comparisons: Radiograph dated March 30, 2020 Technique: CT of the left foot wasperformed without contrast. Axial images were generated as [...] Gonzales Verified Date/Time: 04/03/2020 08:50:03 Reading Location: [address] Ortho Consult [facility] left 2020-04-03 08:50:00Interface, External Ris In - 04/03/2020 8:[address] of the left foot without contrast History: Lower leg pain, osteomyelitis suspected, initial examL Foot infection to r/o osteomyelitis Comparisons: Radiograph dated March 30, 2020 Technique: CT of the left foot wasperformed without contrast. Axial images were generated as were multiplanar reformatted images in the coronal and sagittal planes. This exam was performed according to our departmental dose optimization program which includes automated exposure control, adjustment of the mA and/or kV according to patie nt's size and/or use of iterative reconstructive technique. [...] Gonzales Verified Date/Time: 04/03/2020 08:50:03 Reading Location: [address] [facility]oConsult [facility] [id number] 07:39:00 Test Item Value Reference Range Interpretation Comments POC-GLUCOSE METER 178 mg/dL 70-110 H : TESTED A T [facility] 1317 (BEAKER) (test code [facility] [address], = 1538) [facility] 77 478: Business Banker/Techni cornelia ID = [id number] for Tim rodriguezTiff BASIC METABOLIC [id number] 06:16:00 Test Item Value Reference Range Interpretation [...] S NOT APPLICABLE FOR DIALYSIS PATIEN TS. Business Banker ID - LITOOperator ID - LITOOperator ID - LITOOperator ID - LITOOperator ID - LITOOperator ID - LITOOperator ID - LITOOperator ID - LITOOperator ID - LITOOperator ID - LITOOperator ID - LITOOperator ID - LITOOperator ID - LITOCBC (Hemogram only)2020-04-03 05:47:00 Test Item Value Reference Range Interpretation Comments WBC (test code = 6690-2) 8.9 See_Comment [A utomated message] The system [employer] generated this result transmitted ref erence range: 4.0 - 10 .0 K/L. The refe rence range was not u sed to interpret this result as normal/abnor mal. RBC (test code = 789-8) 3.59 See_Comment L [Au tomated message] The system [employer] generated this result transmitted ref erence range: 4.20 - 5 .80 M/L. The refe rence range was not u sed to interpret this result as normal/abnor mal. MCHC (test code = 786-4) 32.4 See_Comment L [A utomated message] The system [employer] generated this result transmitted ref erence range: [...] See_Comment [Aut omated message] 777-3) The system [employer] generated this result transmitted ref erence range: 150 - 43 0 K/CU MM. The referen ce range was not u sed to interpret this result as normal/abnor mal. MPV (test code = 11.7 fL 6-11.5 H 61079-6) nRBC (test code = 413) 0 See_Comment [Aut omated message] The system [employer] generated this result transmitted ref erence range: 0 - 0 /1 00 WBC. The refere nce range was not u sed to interpret this result as normal/abnor mal. Lab Interpretation (test Abnormal code = 79198-8) [facility] (Hemogram only)2020-04-03 05:47:00 Test Item Value Reference Range Interpretation Comments WBC (test code = 6690-2) 8.9 See_Comment [A utomated message] The system [employer] generated this result transmitted ref erence range: 4.0 - 10 .0 K/L. The refe rence range was not u sed to interpret this result as normal/abnor mal. RBC (test code = 789-8) 3.59 See_Comment L [Au tomated message] The system [employer] generated this result transmitted ref erence range: 4.20 - 5 .80 M/L. The refe rence range was not u sed to interpret this result as normal/abnor mal. MCHC (test code = 786-4) 32.4 See_Comment L [A utomated message] The system [employer] generated this result transmitted ref erence range: [...] See_Comment [Aut omated message] 777-3) The system [employer] generated this result transmitted ref erence range: 150 - 43 0 K/CU MM. The referen ce range was not u sed to interpret this result as normal/abnor mal. MPV (test code = 11.7 fL 6-11.5 H 98505-1) nRBC (test code = 413) 0 See_Comment [Aut omated message] The system [employer] generated this result transmitted ref erence range: 0 - 0 /1 00 WBC. The refere nce range was not u sed to interpret this result as normal/abnor mal. Lab Interpretation (test Abnormal code = 00526-1) [facility] (Hemogram only)2020-04-03 05:47:00 Test Item Value Reference Range Interpretation Comments WBC (test code = 6690-2) 8.9 See_Comment [A utomated message] The system [employer] generated this result transmitted ref erence range: 4.0 - 10 .0 K/L. The refe rence range was not u sed to interpret this result as normal/abnor mal. RBC (test code = 789-8) 3.59 See_Comment L [Au tomated message] The system [employer] generated this result transmitted ref erence range: 4.20 - 5 .80 M/L. The refe rence range was not u sed to interpret this result as normal/abnor mal. MCHC (test code = 786-4) 32.4 See_Comment L [A utomated message] The system [employer] generated this result transmitted ref erence range: [...] code = 215 See_Comment [Aut omated message] 177-3) The system [employer] generated this result transmitted ref erence range: 150 - 43 0 K/CU MM. The referen ce range was not u sed to interpret this result as normal/abnor mal. MPV (test code = 11.7 fL 6-11.5 H 56569-0) nRBC (test code = 413) 0 See_Comment [Aut omated message] The system [employer] generated this result transmitted ref erence range: 0 - 0 /1 00 WBC. The refere nce range was not u sed to interpret this result as normal/abnor mal. Lab Interpretation (test Abnormal code = 58605-7) [facility] (Hemogram only)2020-04-03 05:47:00 Test Item Value Reference Range Interpretation Comments WBC (test code = 6690-2) 8.9 See_Comment [A utomated message] The system [employer] generated this result transmitted ref erence range: 4.0 - 10 .0 K/L. The refe rence range was not u sed to interpret this result as normal/abnor mal. RBC (test code = 789-8) 3.59 See_Comment L [Au tomated message] The system [employer] generated this result transmitted ref erence range: 4.20 - 5 .80 M/L. The refe rence range was not u sed to interpret this result as normal/abnor mal. MCHC (test code = 786-4) 32.4 See_Comment L [A utomated message] The system [employer] generated this result transmitted ref erence range: [...] See_Comment [Aut omated message] 777-3) The system [employer] generated this result transmitted ref erence range: 150 - 43 0 K/CU MM. The referen ce range was not u sed to interpret this result as normal/abnor mal. MPV (test code = 11.7 fL 6-11.5 H 77108-8) nRBC (test code = 413) 0 See_Comment [Aut omated message] The system [employer] generated this result transmitted ref erence range: 0 - 0 /1 00 WBC. The refere nce range was not u sed to interpret this result as normal/abnor mal. Lab Interpretation (test Abnormal code = 66207-8) [facility] (Hemogram only)2020-04-03 05:47:00 Test Item Value Reference Range Interpretation Comments WBC (test code = 6690-2) 8.9 See_Comment [A utomated message] The system [employer] generated this result transmitted ref erence range: 4.0 - 10 .0 K/L. The refe rence range was not u sed to interpret this result as normal/abnor mal. RBC (test code = 789-8) 3.59 See_Comment L [Au tomated message] The system [employer] generated this result transmitted ref erence range: 4.20 - 5 .80 M/L. The refe rence range was not u sed to interpret this result as normal/abnor mal. MCHC (test code = 786-4) 32.4 See_Comment L [A utomated message] The system [employer] generated this result transmitted ref erence range: [...] See_Comment [Aut omated message] 777-3) The system [employer] generated this result transmitted ref erence range: 150 - 43 0 K/CU MM. The referen ce range was not u sed to interpret this result as normal/abnor mal. MPV (test code = 11.7 fL 6.0-11.5 H 98520-5) nRBC (test code = 413) 0 See_Comment [Aut omated message] The system [employer] generated this result transmitted ref erence range: 0 - 0 /1 00 WBC. The refere nce range was not u sed to interpret this result as normal/abnor mal. Lab Interpretation (test Abnormal code = 20796-2) [facility] 05:47:00 Test Item Value Reference Range Interpretation Comments WBC (test code = 6690-2) 8.9 See_Comment [A utomated message] The system [employer] generated this result transmitted ref erence range: 4.0 - 10 .0 K/L. The refe rence range was not u sed to interpret this result as normal/abnor mal. RBC (test code = 789-8) 3.59 See_Comment L [Au tomated message] The system [employer] generated this result transmitted ref erence range: 4.20 - 5 .80 M/L. The refe rence range was not u sed to interpret this result as normal/abnor mal. MCHC (test code = 786-4) 32.4 See_Comment L [A utomated message] The system [employer] generated this result transmitted ref erence range: [...] See_Comment [Aut omated message] 777-3) The system [employer] generated this result transmitted ref erence range: 150 - 43 0 K/CU MM. The referen ce range was not u sed to interpret this result as normal/abnor mal. MPV (test code = 11.7 fL 6.0-11.5 H 19231-4) nRBC (test code = 413) 0 See_Comment [Aut omated message] The system [employer] generated this result transmitted ref erence range: 0 - 0 /1 00 WBC. The refere nce range was not u sed to interpret this result as normal/abnor mal. Lab Interpretation (test Abnormal code = 81716-1) [facility] (Hemogram only)2020-04-03 05:47:00 Test Item Value Reference Range Interpretation Comments WBC (test code = 6690-2) 8.9 See_Comment [A utomated message] The system [employer] generated this result transmitted ref erence range: 4.0 - 10 .0 K/L. The refe rence range was not u sed to interpret this result as normal/abnor mal. RBC (test code = 789-8) 3.59 See_Comment L [Au tomated message] The system [employer] generated this result transmitted ref erence range: 4.20 - 5 .80 M/L. The refe rence range was not u sed to interpret this result as normal/abnor mal. MCHC (test code = 786-4) 32.4 See_Comment L [A utomated message] The system [employer] generated this result transmitted ref erence range: [...] See_Comment [Aut omated message] 777-3) The system [employer] generated this result transmitted ref erence range: 150 - 43 0 K/CU MM. The referen ce range was not u sed to interpret this result as normal/abnor mal. MPV (test code = 11.7 fL 6.0-11.5 H 77735-3) nRBC (test code = 413) 0 See_Comment [Aut omated message] The system [employer] generated this result transmitted ref erence range: 0 - 0 /1 00 WBC. The refere nce range was not u sed to interpret this result as normal/abnor mal. Lab Interpretation (test Abnormal code = 88282-2) [facility] (HEMOGRAM ONLY)2020-04-03 05:47:00 Test Item Value [...] (BEAKER) (test code = 413) VANCOMYCIN LEVEL, [id number] 22:37:00 Test Item Value Reference Range Interpretation Comments VANCOMYCIN TROUGH (BEAKER) (test 18.7 ug/mL 10.0-20.0 code = 522) Business Banker ID - JUSTINPOCT-GLUCOSE [id number] 21:28:00 Test Item Value Reference Range Interpretation Comments POC-GLUCOSE METER 234 mg/dL 70-110 H : TESTED A T [facility] [address] (BEAKER) ([facility] [address], = 15[address]) [facility] 77 478: Business Banker/Techni cornelia ID = [id number] for Heidy Barrow POCT-GLUCOSE [id number] 16:03:00 Test Item Value Reference Range Interpretation Comments POC-GLUCOSE METER 262 mg/dL 70-110 H : TESTED A T [facility] [address] (BEAKER) (test code [address], = 1538) [facility] 77 478: Business Banker/Techni cornelia ID = [id number] for Tanesha Espinale POCT-GLUCOSE [id number] 11:56:00 Test Item Value Reference Range Interpretation Comments POC-GLUCOSE METER 190 mg/dL 70-110 H : TESTED A T [facility] [address] (BEAKER) (test code [address], = 1538) [facility] 77 478: Business Banker/Techni cornelia ID = [id number] for Brandon alejandra, Jesi BASIC METABOLIC [id number] 06:58:00 Test Item Value Reference Range Interpretation [...] S NOT APPLICABLE FOR DIALYSIS PATIEN TS. Business Banker ID - [id number] ID - [id number] ID - [id number] ID - cowe17Iqqagrmj ID - dzbo11Tbtilrio ID - nsxb05Nweiqgan ID - yfen59Kqqtiezk ID - nwtq09Vdgvntfq ID - ubzy30Ssltddyc ID - rrkh14Uvhowqbd ID - hjlj29Srofzgnp ID - nzny30Lxiskxuo ID - [id number] (HEMOGRAM ONLY)2020-04-02 06:43:00 Test Item Value Reference [...] 0-0 (BEAKER) (test code = 413) POCT-GLUCOSE [id number] 16:21:00 Test Item Value Reference Range Interpretation Comments POC-GLUCOSE METER 262 mg/dL 70-110 H : TESTED A T [facility] [address] (BEAKER) (test code [address], = 1538) [place] [address]88: Business Banker/Techni cornelia ID = [id number] for Brandon alejandra Jesi POCT-GLUCOSE [id number] 13:00:00 Test Item Value Reference Range Interpretation Comments POC-GLUCOSE METER 256 mg/dL 70-110 H : TESTED A T [facility] [address] (BEAKER) (test code [address], = 1538) [place] 77 478: Business Banker/Techni cornelia ID = [id number] for Olga He POCT-GLUCOSE [id number] 11:49:00 Test Item Value Reference Range Interpretation Comments POC-GLUCOSE METER 255 mg/dL 70-110 H : TESTED A T [facility] [address] (BEAKER) (test code [address], = 1538) [place] [address]: Business Banker/Techni cornelia ID = [id number] for Karina Curtis POCT-GLUCOSE [id number] 07:53:00 Test Item Value Reference Range Interpretation Comments POC-GLUCOSE METER 296 mg/dL 70-110 H : TESTED A T [facility] [address] (BEAKER) (test code [address], = 1538) [place] [address]2488: Business Banker/Techni cornelia ID = [id number] for Brandon alejandra Jesi BASIC METABOLIC [id number] 06:06:00 Test Item Value Reference Range Interpretation [...] S NOT APPLICABLE FOR DIALYSIS PATIEN TS. Business Banker ID - ANSBERTOGOperator ID - ANSBERTOGOperator ID - ANSBERTOGOperator ID - ANSBERTOGOperatorID - ANSBERTOGOperator ID - ANSBERTOGOperator ID - ANSBERTOGOperator ID - ANSBERTOGOperator ID - ANSBERTOGOperator ID - ANSBERTOGOperator ID - ANSBERTOGOperator ID - ANSBERTOGOperator ID - ANSBERTOG POCT-GLUCOSE [id number] 20:54:00 Test Item Value Reference Range Interpretation Comments POC-GLUCOSE METER 252 mg/dL 70-110 H : TESTED A T [facility] [address] (BEAKER) (test code [address], = 1538) [place] [address]: Business Banker/Techni cornelia ID = [id number] for gordon Whitehead POCT-GLUCOSE [id number] 15:59:00 Test Item Value Reference Range Interpretation Comments POC-GLUCOSE METER 335 mg/dL 70-110 H : TESTED A T [facility] [address] (BEAKER) (test code [address], = 1538) [place] [address]: Business Banker/Techni cornelia ID = [id number] for Tiff Roach POCT-GLUCOSE [id number] 15:24:00 Test Item Value Reference Range Interpretation Comments POC-GLUCOSE METER 356 mg/dL 70-110 H : TESTED A T [facility] [address] (BEAKER) (test code [address], = 1538) [place] [address]: Business Banker/Techni cornelia ID = [id number] for Tiff Roach POCT-GLUCOSE [id number] 07:46:00 Test Item Value Reference Range Interpretation Comments POC-GLUCOSE METER 281 mg/dL 70-110 H : TESTED A T [facility] [address] (BEAKER) (test code [address], = 1538) [place] [address]: Business Banker/Techni cornelia ID = [id number] for Tiff Roach Hemoglobin [id number] 06:09:00 Test Item Value Reference Range Interpretation Comments Hemoglobin A1C (test code 12.3 % 4.3-6.1 H = 4548-4) ISSA (test code = ISSA) Business Banker ID - DOMINIK Lab Interpretation (test Abnormal code = 28463-3) [id number] 06:09:00 Test Item Value Reference Range Interpretation Comments Hemoglobin A1C (test code 12.3 % 4.3-6.1 H = 4548-4) ISSA (test code = ISSA) Business Banker ID - DOMINIK Lab Interpretation (test Abnormal code = 88117-7) [facility] [id number] 06:09:00 Test Item Value Reference Range Interpretation Comments Hemoglobin A1C (test code 12.3 % 4.3-6.1 H = 4548-4) ISSA (test code = ISSA) Business Banker ID - JBERN Lab Interpretation (test Abnormal code = 57413-3) [facility] [id number] 06:09:00 Test Item Value Reference Range Interpretation Comments Hemoglobin A1C (test code 12.3 % 4.3-6.1 H = 4548-4) ISSA (test code = ISSA) Business Banker ID - JBERN Lab Interpretation (test Abnormal code = 27545-0) [facility] [id number] 06:09:00 Test Item Value Reference Range Interpretation Comments Hemoglobin A1C (test code 12.3 % 4.3-6.1 H = 4548-4) ISSA (test code = ISSA) Business Banker ID - JBERN Lab Interpretation (test Abnormal code = 29757-4) [facility] [id number] 06:09:00 Test Item Value Reference Range Interpretation Comments Hemoglobin A1C (test code 12.3 % 4.3-6.1 H = 4548-4) ISSA (test code = ISSA) Business Banker ID - JBERN Lab Interpretation (test Abnormal code = 39848-5) [facility] [id number] 06:09:00 Test Item Value Reference Range Interpretation Comments Hemoglobin A1C (test code 12.3 % 4.3-6.1 H = 4548-4) ISSA (test code = ISSA) Business Banker ID - JBERN Lab Interpretation (test Abnormal code = 79993-5) [facility] [id number] 06:09:00 Test Item Value Reference Range Interpretation Comments HEMOGLOBIN A1C (BEAKER) (test code = 12.3 % 4.3-6.1 H 368) Business Banker ID - GILASIC METABOLIC [id number] 06:04:00 Test Item Value Reference Range Interpretation [...] S NOT APPLICABLE FOR DIALYSIS PATIEN TS. Business Banker ID - ANSBERTOGOperator ID - ANSBERTOGOperator ID - ANSBERTOGOperator ID - ANSBERTOGOperatorID - ANSBERTOGOperator ID - ANSBERTOGOperator ID - ANSBERTOGOperator ID - ANSBERTOGOperator ID - ANSBERTOGOperator ID - ANSBERTOGOperator ID - ANSBERTOGOperator ID - ANSBERTOGOperator ID - ANSBERTOG CBC W/PLT COUNT & AUTO [id number] 05:38:00 Test Item Value Reference Range Interpretation [...] = 2801) CBC W/PLT COUNT & AUTO [id number] 22:16:00 Test Item Value Reference Range Interpretation [...] PERCENT (BEAKER) (test code = 2801) POCT-GLUCOSE [id number] 22:12:00 Test Item Value Reference Range Interpretation Comments POC-GLUCOSE METER 396 mg/dL 70-110 H : TESTED A T [facility] [address] (BEAKER) ([facility] [address] = 1538) [facility] 77 478: Business Banker/Techni cornelia ID = [id number] for Aanu siem, felicity RAD, FOOT, MIN 3 VIEWS, [id number] 21:39:00Reason for exam:->L foot ulcer.[facility] : 1975 Sex: MFINAL REPORT CLINICAL HISTORY: Left foot ulcer COMPARISON: 03/20/2020 FINDINGS: 3 images of the left foot are submitted. There is soft tissue irregularity suggestive of ulceration at the plantar margin of the medial forefoot. There is no underlying fracture, malalignment or destructive bony lesion. The gas does not definitely track to the bone surface. Vascular calcifications are present in the ankle and foot. Please note that the radiographic appearance of osteomyelitis lags behind clinical onset. If of further clinical concern, three-phase bone scan or MRI is recommended. Signed: Shraddha Stanley MDReport Verified Date/Time: 03/30/2020 21:39:00 [facility] 2020-03-30 21:34:00 Test Item Value Reference Range Interpretation [...] S NOT APPLICABLE FOR DIALYSIS PATIEN TS. Business Banker ID - JBERNOperator ID - JBERNOperator ID - JBERNOperator ID - JBERNOperator ID - JBERNOperator ID - JBERNOperator ID - JBERNOperator ID - JBERNOperator ID - JBERNOperator ID - JBERNOperator ID- JBERNOperator ID - JBERNOperator ID - JBERNSARS-COV2/RT-PCR ([facility])2020-03-30 21:04:00 Test Item Value Reference Range Interpretation Comments SARS-COV2/RT-PCR Negative Not Detected, (test code = 5657225) Negative, See external report for linked test SARS-COV-2 PERFORMING Perfor med @ [facility] (test code = 9425606) BLOOD [id number] 04:00:00 Test Item Value Reference Range Interpretation Comments CULTURE (BEAKER) (test No growth in 5 days code = 1095) BLOOD [id number] 04:00:00 Test Item Value Reference Range Interpretation Comments CULTURE (BEAKER) (test No growth in 5 days code = 1095) BASIC METABOLIC [id number] 01:36:00 Test Item Value Reference Range Interpretation [...] S NOT APPLICABLE FOR DIALYSIS PATIEN TS. Business Banker ID - [id number] ID - fkpp80Ujxvfbjt ID - jams96Laatbxjz ID - klfv65Auuojmfo ID - uwna15Umtvvjmo ID - tmbt01Kriznhsa ID - ucnu77Ngadjzis ID - txjj43Bcupemnj ID - mxga91Fhjfphfw ID - bihf14Gmvduxfx ID - hhrs42Pzzoympt ID - xjpp81Sbsymmsh ID - yrls31I-Iiqvqanh [id number] 01:34:00 Test Item Value Reference Range Interpretation Comments CRP (test code = 676) 0.66 mg/dL 0-0.5 H ISSA (test code = ISSA) Business Banker ID - [id number] Lab Interpretation (test Abnormal code = 70839-2) [facility] [id number] 01:34:00 Test Item Value Reference Range Interpretation Comments CRP (test code = 676) 0.66 mg/dL 0-0.5 H ISSA (test code = ISSA) Business Banker ID - [id number] Lab Interpretation (test Abnormal code = 17811-5) [facility] [id number] 01:34:00 Test Item Value Reference Range Interpretation Comments CRP (test code = 676) 0.66 mg/dL 0-0.5 H ISSA (test code = ISSA) Business Banker ID - [id number] Lab Interpretation (test Abnormal code = 45963-0) [facility] [id number] 01:34:00 Test Item Value Reference Range Interpretation Comments CRP (test code = 676) 0.66 mg/dL 0-0.5 H ISSA (test code = ISSA) Business Banker ID - [id number] Lab Interpretation (test Abnormal code = 54510-3) [facility] [id number] 01:34:00 Test Item Value Reference Range Interpretation Comments CRP (test code = 676) 0.66 mg/dL 0.00-0.50 H ISSA (test code = ISSA) Business Banker ID - [id number] Lab Interpretation (test Abnormal code = 18366-0) [facility] [id number] 01:34:00 Test Item Value Reference Range Interpretation Comments CRP (test code = 676) 0.66 mg/dL 0.00-0.50 H ISSA (test code = ISSA) Business Banker ID - [id number] Lab Interpretation (test Abnormal code = 35030-1) [facility] [id number] 01:34:00 Test Item Value Reference Range Interpretation Comments CRP (test code = 676) 0.66 mg/dL 0.00-0.50 H ISSA (test code = ISSA) Business Banker ID - [id number] Lab Interpretation (test Abnormal code = 64387-2) [facility] [id number] 01:34:00 Test Item Value Reference Range Interpretation Comments C-REACTIVE PROTEIN (BEAKER) (test 0.66 mg/dL 0.00-0.50 H code = 676) Business Banker ID - [id number] ACID, [id number] 01:33:00 Test Item Value Reference Range Interpretation Comments LACTATE BLOOD VENOUS (2) (BEAKER) 1.75 mmol/L 0.50-<2.00 (test code = 2872) Business Banker ID - [id number] ID - obtt32Swldogsi ID - xjdf28Usgizzci ID - [id number] CBC W/PLT COUNT & AUTO [id number] 01:21:00 Test Item Value Reference Range Interpretation [...] = 2801) RAD, FOOT, MIN 3 VIEWS, [id number] 00:51:00Reason for exam:->ABSCESS [facility] 1975 Sex: MFINAL REPORT TECHNIQUE: Frontal, oblique, and lateral views of the left foot. INDICATION: ABSCESS. COMPARISON: None. IMPRESSION:There is soft tissue swelling with superficial skin defect compatible with ulceration along the plantar tissues of the distal midfoot. No osseous erosion. No acute fracture or dislocation. Joint spaces are preserved. Peripheral vascular calcifications are evident. Signed: Jazmin Freeman Verified Date/Time: 03/20/2020 00:51:45 Panel Description: Hemoglobin A1c/Hemoglobin.total in [id number] 11:40:00 Test Item Value Reference Range Interpretation Comments Hemoglobin A1c (test code 13.1 % 4.8-5.6 H . Prediabetes: 5.7 - = 4548-4) 6.4 Diabetes: > 6.4 Glycemic contro l for adults with mary ann betes: <7.0

P erforme d by:
Vindi [place] ()

[facility] Description: Hemoglobin A1c/Hemoglobin.total in Blood 2020-03-07 11:40:00 Test Item Value Reference Range Interpretation Comments Hemoglobin A1c (test code 13.1 % 4.8-5.6 H . Prediabetes: 5.7 - = 4548-4) 6.4 Diabetes: > 6.4 Glycemic contro l for adults with mary ann betes: <7.0

P erforme d by:
Vindi [place] (HD)

[facility] Description: Hemoglobin A1c/Hemoglobin.total in Blood 2020-03-07 11:40:00 Test Item Value Reference Range Interpretation Comments Hemoglobin A1c (test code 13.1 % 4.8-5.6 H . Prediabetes: 5.7 - = 4548-4) 6.4 Diabetes: > 6.4 Glycemic contro l for adults with mary ann betes: <7.0

P erforme d by:
[facility] [place] ()

[facility] Description: Hemoglobin A1c/Hemoglobin.total in Blood 2020-03-07 11:40:00 Test Item Value Reference Range Interpretation Comments Hemoglobin A1c (test code 13.1 % 4.8-5.6 H . Prediabetes: 5.7 - = 4548-4) 6.4 Diabetes: > 6.4 Glycemic contro l for adults with mary ann betes: <7.0

P erforme d by:
[facility] [place] ([place])

[facility] Description: Hemoglobin A1c/Hemoglobin.total in Blood 2020-03-07 11:40:00 Test Item Value Reference Range Interpretation Comments Hemoglobin A1c (test code 13.1 % 4.8-5.6 H . Prediabetes: 5.7 - = 4548-4) 6.4 Diabetes: > 6.4 Glycemic contro l for adults with mary ann betes: <7.0

P erforme d by:
[facility] [employer] [facility] [place] ()

[facility] Description: Hemoglobin A1c/Hemoglobin.total in Blood 2020-03-07 11:40:00 Test Item Value Reference Range Interpretation Comments Hemoglobin A1c (test code 13.1 % 4.8-5.6 H . Prediabetes: 5.7 - = 4548-4) 6.4 Diabetes: > 6.4 Glycemic contro l for adults with mary ann betes: <7.0

P erforme d by:
[facility] [place] ()

[facility] Description: Hemoglobin A1c/Hemoglobin.total in Blood 2020-03-07 11:40:00 Test Item Value Reference Range Interpretation Comments Hemoglobin A1c (test code 13.1 % 4.8-5.6 H . Prediabetes: 5.7 - = 4548-4) 6.4 Diabetes: > 6.4 Glycemic contro l for adults with mary ann betes: <7.0

P erforme d by:
[facility] [place] ()

[facility] Description: Hemoglobin A1c/Hemoglobin.total in Blood 2020-03-07 11:40:00 Test Item Value Reference Range Interpretation Comments Hemoglobin A1c (test code 13.1 % 4.8-5.6 H . Prediabetes: 5.7 - = 4548-4) 6.4 Diabetes: > 6.4 Glycemic contro l for adults with mary ann betes: <7.0

P erforme d by:
[facility] [place] ([place])

[facility] Description: Hemoglobin A1c/Hemoglobin.total in Blood 2020-03-07 11:40:00 Test Item Value Reference Range Interpretation Comments Hemoglobin A1c (test code 13.1 % 4.8-5.6 H . Prediabetes: 5.7 - = 4548-4) 6.4 Diabetes: > 6.4 Glycemic contro l for adults with mary ann betes: <7.0

P erforme d by:
[facility] [place] ([place])

[facility] Description: Hemoglobin A1c/Hemoglobin.total in Blood 2020-03-07 11:40:00 Test Item Value Reference Range Interpretation Comments Hemoglobin A1c (test code 13.1 % 4.8-5.6 H . Prediabetes: 5.7 - = 4548-4) 6.4 Diabetes: > 6.4 Glycemic contro l for adults with mary ann betes: <7.0

P erforme d by:
[facility] [place] ([place])

[facility] Description: Hemoglobin A1c/Hemoglobin.total in Blood 2020-03-07 11:40:00 Test Item Value Reference Range Interpretation Comments Hemoglobin A1c (test code 13.1 % 4.8-5.6 H . Prediabetes: 5.7 - = 4548-4) 6.4 Diabetes: > 6.4 Glycemic contro l for adults with mary ann betes: <7.0

P erforme d by:
[facility] [place] ([place])

[facility] Description: Hemoglobin A1c/Hemoglobin.total in Blood 2020-03-07 11:40:00 Test Item Value Reference Range Interpretation Comments Hemoglobin A1c (test code 13.1 % 4.8-5.6 H . Prediabetes: 5.7 - = 4548-4) 6.4 Diabetes: > 6.4 Glycemic contro l for adults with mary ann betes: <7.0

P erforme d by:
[facility] [place] ([place])

[facility] Description: Hemoglobin A1c/Hemoglobin.total in Blood 2020-03-07 11:40:00 Test Item Value Reference Range Interpretation Comments Hemoglobin A1c (test code 13.1 % 4.8-5.6 H . Prediabetes: 5.7 - = 4548-4) 6.4 Diabetes: > 6.4 Glycemic contro l for adults with mary ann betes: <7.0

P erforme d by:
[facility] [place] ([place])

[facility] Description: Hemoglobin A1c/Hemoglobin.total in Blood 2020-03-07 11:40:00 Test Item Value Reference Range Interpretation Comments Hemoglobin A1c (test code 13.1 % 4.8-5.6 H . Prediabetes: 5.7 - = 4548-4) 6.4 Diabetes: > 6.4 Glycemic contro l for adults with mary ann betes: <7.0

P erforme d by:
[facility] [place] ([place])

[facility] Description: Hemoglobin A1c/Hemoglobin.total in Blood 2020-03-07 11:40:00 Test Item Value Reference Range Interpretation Comments Hemoglobin A1c (test code 13.1 % 4.8-5.6 H . Prediabetes: 5.7 - = 4548-4) 6.4 Diabetes: > 6.4 Glycemic contro l for adults with mary ann betes: <7.0

P erforme d by:
[facility] [place] ([place])

[facility] Description: Hemoglobin A1c/Hemoglobin.total in Blood 2020-03-07 11:40:00 Test Item Value Reference Range Interpretation Comments Hemoglobin A1c (test code 13.1 % 4.8-5.6 H . Prediabetes: 5.7 - = 4548-4) 6.4 Diabetes: > 6.4 Glycemic contro l for adults with mary ann betes: <7.0

P erforme d by:
[facility] [place] ([place])

[facility] Description: Hemoglobin A1c/Hemoglobin.total in Blood 2020-03-07 11:40:00 Test Item Value Reference Range Interpretation Comments Hemoglobin A1c (test code 13.1 % 4.8-5.6 H . Prediabetes: 5.7 - = 4548-4) 6.4 Diabetes: > 6.4 Glycemic contro l for adults with mary ann betes: <7.0

P erforme d by:
[facility] [place] ([place])

[facility] Description: Hemoglobin A1c/Hemoglobin.total in Blood 2020-03-07 11:40:00 Test Item Value Reference Range Interpretation Comments Hemoglobin A1c (test code 13.1 % 4.8-5.6 H . Prediabetes: 5.7 - = 4548-4) 6.4 Diabetes: > 6.4 Glycemic contro l for adults with mary ann betes: <7.0

P erforme d by:
[facility] [place] ([place])

[facility] Description: Hemoglobin A1c/Hemoglobin.total in Blood 2020-03-07 11:40:00 Test Item Value Reference Range Interpretation Comments Hemoglobin A1c (test code 13.1 % 4.8-5.6 H . Prediabetes: 5.7 - = 4548-4) 6.4 Diabetes: > 6.4 Glycemic contro l for adults with mary ann betes: <7.0

P erforme d by:
[facility] [place] ([place])

[facility] Description: Hemoglobin A1c/Hemoglobin.total in Blood 2020-03-07 11:40:00 Test Item Value Reference Range Interpretation Comments Hemoglobin A1c (test code 13.1 % 4.8-5.6 H . Prediabetes: 5.7 - = 4548-4) 6.4 Diabetes: > 6.4 Glycemic contro l for adults with mary ann betes: <7.0

P erforme d by:
[facility] [place] ([place])

[facility] Description: Hemoglobin A1c/Hemoglobin.total in Blood 2020-03-07 11:40:00 Test Item Value Reference Range Interpretation Comments Hemoglobin A1c (test code 13.1 % 4.8-5.6 H . Prediabetes: 5.7 - = 4548-4) 6.4 Diabetes: > 6.4 Glycemic contro l for adults with mary ann betes: <7.0

P erforme d by:
[facility] [place] ([place])

[facility] Description: Hemoglobin A1c/Hemoglobin.total in Blood 2020-03-07 11:40:00 Test Item Value Reference Range Interpretation Comments Hemoglobin A1c (test code 13.1 % 4.8-5.6 H . Prediabetes: 5.7 - = 4548-4) 6.4 Diabetes: > 6.4 Glycemic contro l for adults with mary ann betes: <7.0

P erforme d by:
[facility] [place] ([place])

[facility] Description: Hemoglobin A1c/Hemoglobin.total in Blood 2020-03-07 11:40:00 Test Item Value Reference Range Interpretation Comments Hemoglobin A1c (test code 13.1 % 4.8-5.6 H . Prediabetes: 5.7 - = 4548-4) 6.4 Diabetes: > 6.4 Glycemic contro l for adults with mary ann betes: <7.0

P erforme d by:
[facility] [place] ([place])

[facility] Description: Hemoglobin A1c/Hemoglobin.total in Blood 2020-03-07 11:40:00 Test Item Value Reference Range Interpretation Comments Hemoglobin A1c (test code 13.1 % 4.8-5.6 H . Prediabetes: 5.7 - = 4548-4) 6.4 Diabetes: > 6.4 Glycemic contro l for adults with mary ann betes: <7.0

P erforme d by:
[facility] [place] ()

[facility] Description: Hemoglobin A1c/Hemoglobin.total in Blood 2020-03-07 11:40:00 Test Item Value Reference Range Interpretation Comments Hemoglobin A1c (test code 13.1 % 4.8-5.6 H . Prediabetes: 5.7 - = 4548-4) 6.4 Diabetes: > 6.4 Glycemic contro l for adults with mary ann betes: <7.0

P erforme d by:
[facility] ()

[facility] Description: Hemoglobin A1c/Hemoglobin.total in Blood 2020-03-07 11:40:00 Test Item Value Reference Range Interpretation Comments Hemoglobin A1c (test code 13.1 % 4.8-5.6 H . Prediabetes: 5.7 - = 4548-4) 6.4 Diabetes: > 6.4 Glycemic contro l for adults with mary ann betes: <7.0

P erforme d by:
[facility] [place] ()

[facility] Description: Hemoglobin A1c/Hemoglobin.total in Blood 2020-03-07 11:40:00 Test Item Value Reference Range Interpretation Comments Hemoglobin A1c (test code 13.1 % 4.8-5.6 H . Prediabetes: 5.7 - = 4548-4) 6.4 Diabetes: >6.4 Glycemic contro l for adults with mary ann betes: <7.0

P erforme d by:
[facility] [place] ()

[facility] Description: Hemoglobin A1c/Hemoglobin.total in Blood 2020-03-07 11:40:00 Test Item Value Reference Range Interpretation Comments Hemoglobin A1c (test code 13.1 % 4.8-5.6 H . Prediabetes: 5.7 - = 4548-4) 6.4 Diabetes: > 6.4 Glycemic contro l for adults with mary ann betes: <7.0

P erforme d by:
[facility] [place] ()

[facility] Description: Lipid [id number] 08:03:00 Test Item Value Reference Range Interpretation Comments Cholesterol, Total (test code = 209 mg/dL 100-199 H 2093-3) Triglycerides (test code = 2571-8) 172 mg/dL 0-149 H HDL Cholesterol (test code = 29 mg/dL >39 L 2085-9) VLDL Cholesterol Renuka (test code = 32 mg/dL 5-40 70920-9) LDL Chol Calc (NIH) (test code = 148 mg/dL 0-99 H 43230-9) Comment: (test code = 12020-3) [employer] Description: Lipid [id number] 08:03:00 Test Item Value Reference Range Interpretation Comments Cholesterol, Total (test code = 209 mg/dL 100-199 H 2093-3) Triglycerides (test code = 2571-8) 172 mg/dL 0-149 H HDL Cholesterol (test code = 29 mg/dL >39 L 2085-9) VLDL Cholesterol Renuka (test code = 32 mg/dL 5-40 36280-2) LDL Chol Calc (NIH) (test code = 148 mg/dL 0-99 H 20447-9) Comment: (test code = 68894-2) [employer] Description: Lipid [id number] 08:03:00 Test Item Value Reference Range Interpretation Comments Cholesterol, Total (test code = 209 mg/dL 100-199 H 2093-3) Triglycerides (test code = 2571-8) 172 mg/dL 0-149 H HDL Cholesterol (test code = 29 mg/dL >39 L 2085-9) VLDL Cholesterol Renuka (test code = 32 mg/dL 5-40 29137-1) LDL Chol Calc (NIH) (test code = 148 mg/dL 0-99 H 58006-8) Comment: (test code = 36348-8) [employer] Description: Lipid [id number] 08:03:00 Test Item Value Reference Range Interpretation Comments Cholesterol, Total (test code = 209 mg/dL 100-199 H 2093-3) Triglycerides (test code = 2571-8) 172 mg/dL 0-149 H HDL Cholesterol (test code = 29 mg/dL >39 L 2085-9) VLDL Cholesterol Renuka (test code = 32 mg/dL 5-40 93554-5) LDL Chol Calc (NIH) (test code = 148 mg/dL 0-99 H 33509-4) Comment: (test code = 83735-7) [employer] Description: Lipid [id number] 08:03:00 Test Item Value Reference Range Interpretation Comments Cholesterol, Total (test code = 209 mg/dL 100-199 H 2093-3) Triglycerides (test code = 2571-8) 172 mg/dL 0-149 H HDL Cholesterol (test code = 29 mg/dL >39 L 5-9) VLDL Cholesterol Renuka (test code = 32 mg/dL 5-40 99645-3) LDL Chol Calc (NIH) (test code = 148 mg/dL 0-99 H 43917-8) Comment: (test code = 63534-4) [employer] Description: Lipid [id number] 08:03:00 Test Item Value Reference Range Interpretation Comments Cholesterol, Total (test code = 209 mg/dL 100-199 H 2093-3) Triglycerides (test code = 2571-8) 172 mg/dL 0-149 H HDL Cholesterol (test code = 29 mg/dL >39 L 5-9) VLDL Cholesterol Renuka (test code = 32 mg/dL 5-40 90382-0) LDL Chol Calc (NIH) (test code = 148 mg/dL 0-99 H 06222-9) Comment: (test code = 21078-1) [employer] Description: Lipid [id number] 08:03:00 Test Item Value Reference Range Interpretation Comments Cholesterol, Total (test code = 209 mg/dL 100-199 H 2093-3) Triglycerides (test code = 2571-8) 172 mg/dL 0-149 H HDL Cholesterol (test code = 29 mg/dL >39 L 5-9) VLDL Cholesterol Renuka (test code = 32 mg/dL 5-40 17247-1) LDL Chol Calc (NIH) (test code = 148 mg/dL 0-99 H 10120-5) Comment: (test code = 06571-6) [employer] Description: Lipid [id number] 08:03:00 Test Item Value Reference Range Interpretation Comments Cholesterol, Total (test code = 209 mg/dL 100-199 H 2093-3) Triglycerides (test code = 2571-8) 172 mg/dL 0-149 H HDL Cholesterol (test code = 29 mg/dL >39 L 2085-9) VLDL Cholesterol Renuka (test code = 32 mg/dL 5-40 04137-1) LDL Chol Calc (NIH) (test code = 148 mg/dL 0-99 H 76030-0) Comment: (test code = 51926-9) [employer] Description: Lipid [id number] 08:03:00 Test Item Value Reference Range Interpretation Comments Cholesterol, Total (test code = 209 mg/dL 100-199 H 2093-3) Triglycerides (test code = 2571-8) 172 mg/dL 0-149 H HDL Cholesterol (test code = 29 mg/dL >39 L 2085-9) VLDL Cholesterol Renuka (test code = 32 mg/dL 5-40 44613-6) LDL Chol Calc (NIH) (test code = 148 mg/dL 0-99 H 15939-1) Comment: (test code = 21742-7) [employer] Description: Lipid [id number] 08:03:00 Test Item Value Reference Range Interpretation Comments Cholesterol, Total (test code = 209 mg/dL 100-199 H 2093-3) Triglycerides (test code = 2571-8) 172 mg/dL 0-149 H HDL Cholesterol (test code = 29 mg/dL >39 L 5-9) VLDL Cholesterol Renuka (test code = 32 mg/dL 5-40 00070-6) LDL Chol Calc (NIH) (test code = 148 mg/dL 0-99 H 85694-2) Comment: (test code = 48983-5) [employer] Description: Lipid [id number] 08:03:00 Test Item Value Reference Range Interpretation Comments Cholesterol, Total (test code = 209 mg/dL 100-199 H 2093-3) Triglycerides (test code = 2571-8) 172 mg/dL 0-149 H HDL Cholesterol (test code = 29 mg/dL >39 L 2085-9) VLDL Cholesterol Renuka (test code = 32 mg/dL 5-40 73658-2) LDL Chol Calc (NIH) (test code = 148 mg/dL 0-99 H 44008-7) Comment: (test code = 82274-7) [employer] Description: Lipid [id number] 08:03:00 Test Item Value Reference Range Interpretation Comments Cholesterol, Total (test code = 209 mg/dL 100-199 H 2093-3) Triglycerides (test code = 2571-8) 172 mg/dL 0-149 H HDL Cholesterol (test code = 29 mg/dL >39 L 2085-9) VLDL Cholesterol Renuka (test code = 32 mg/dL 5-40 53778-9) LDL Chol Calc (NIH) (test code = 148 mg/dL 0-99 H 97984-3) Comment: (test code = 40015-8) [employer] Description: Lipid [id number] 08:03:00 Test Item Value Reference Range Interpretation Comments Cholesterol, Total (test code = 209 mg/dL 100-199 H 2093-3) Triglycerides (test code = 2571-8) 172 mg/dL 0-149 H HDL Cholesterol (test code = 29 mg/dL >39 L 2085-9) VLDL Cholesterol Renuka (test code = 32 mg/dL 5-40 06530-6) LDL Chol Calc (NIH) (test code = 148 mg/dL 0-99 H 39117-2) Comment: (test code = 40668-9) [employer] Description: Lipid [id number] 08:03:00 Test Item Value Reference Range Interpretation Comments Cholesterol, Total (test code = 209 mg/dL 100-199 H 2093-3) Triglycerides (test code = 2571-8) 172 mg/dL 0-149 H HDL Cholesterol (test code = 29 mg/dL >39 L 2085-9) VLDL Cholesterol Renuka (test code = 32 mg/dL 5-40 91904-4) LDL Chol Calc (NIH) (test code = 148 mg/dL 0-99 H 40941-0) Comment: (test code = 11235-8) [employer] Description: Lipid [id number] 08:03:00 Test Item Value Reference Range Interpretation Comments Cholesterol, Total (test code = 209 mg/dL 100-199 H 2093-3) Triglycerides (test code = 2571-8) 172 mg/dL 0-149 H HDL Cholesterol (test code = 29 mg/dL >39 L 2085-9) VLDL Cholesterol Renuka (test code = 32 mg/dL 5-40 57401-0) LDL Chol Calc (NIH) (test code = 148 mg/dL 0-99 H 55041-8) Comment: (test code = 72519-0) [employer] Description: Lipid [id number] 08:03:00 Test Item Value Reference Range Interpretation Comments Cholesterol, Total (test code = 209 mg/dL 100-199 H 2093-3) Triglycerides (test code = 2571-8) 172 mg/dL 0-149 H HDL Cholesterol (test code = 29 mg/dL >39 L 2085-9) VLDL Cholesterol Renuka (test code = 32 mg/dL 5-40 65407-5) LDL Chol Calc (NIH) (test code = 148 mg/dL 0-99 H 09946-3) Comment: (test code = 94811-7) [employer] Description: Lipid [id number] 08:03:00 Test Item Value Reference Range Interpretation Comments Cholesterol, Total (test code = 209 mg/dL 100-199 H 2093-3) Triglycerides (test code = 2571-8) 172 mg/dL 0-149 H HDL Cholesterol (test code = 29 mg/dL >39 L 2085-9) VLDL Cholesterol Renuka (test code = 32 mg/dL 5-40 14907-1) LDL Chol Calc (NIH) (test code = 148 mg/dL 0-99 H 71007-7) Comment: (test code = 45275-6) [employer] Description: Lipid [id number] 08:03:00 Test Item Value Reference Range Interpretation Comments Cholesterol, Total (test code = 209 mg/dL 100-199 H 2093-3) Triglycerides (test code = 2571-8) 172 mg/dL 0-149 H HDL Cholesterol (test code = 29 mg/dL >39 L 2085-9) VLDL Cholesterol Renuka (test code = 32 mg/dL 5-40 29447-4) LDL Chol Calc (NIH) (test code = 148 mg/dL 0-99 H 02938-3) Comment: (test code = 48966-8) [employer] Description: Lipid [id number] 08:03:00 Test Item Value Reference Range Interpretation Comments Cholesterol, Total (test code = 209 mg/dL 100-199 H 2093-3) Triglycerides (test code = 2571-8) 172 mg/dL 0-149 H HDL Cholesterol (test code = 29 mg/dL >39 L 5-9) VLDL Cholesterol Renuka (test code = 32 mg/dL 5-40 59426-2) LDL Chol Calc (NIH) (test code = 148 mg/dL 0-99 H 51369-8) Comment: (test code = 68207-6) [email or web address] Description: Lipid [id number] 08:03:00 Test Item Value Reference Range Interpretation Comments Cholesterol, Total (test code = 209 mg/dL 100-199 H 2093-3) Triglycerides (test code = 2571-8) 172 mg/dL 0-149 H HDL Cholesterol (test code = 29 mg/dL >39 L 5-9) VLDL Cholesterol Renuka (test code = 32 mg/dL 5-40 66686-8) LDL Chol Calc (NIH) (test code = 148 mg/dL 0-99 H 59977-5) Comment: (test code = 42116-1) [email or web address] Description: Lipid [id number] 08:03:00 Test Item Value Reference Range Interpretation Comments Cholesterol, Total (test code = 209 mg/dL 100-199 H 2093-3) Triglycerides (test code = 2571-8) 172 mg/dL 0-149 H HDL Cholesterol (test code = 29 mg/dL >39 L 5-9) VLDL Cholesterol Renuka (test code = 32 mg/dL 5-40 68284-1) LDL Chol Calc (NIH) (test code = 148 mg/dL 0-99 H 17061-4) Comment: (test code = 64801-4) [email or web address] Description: Lipid [id number] 08:03:00 Test Item Value Reference Range Interpretation Comments Cholesterol, Total (test code = 209 mg/dL 100-199 H 2093-3) Triglycerides (test code = 2571-8) 172 mg/dL 0-149 H HDL Cholesterol (test code = 29 mg/dL >39 L 5-9) VLDL Cholesterol Renuka (test code = 32 mg/dL 5-40 59733-1) LDL Chol Calc (NIH) (test code = 148 mg/dL 0-99 H 03924-5) Comment: (test code = 00223-8) [email or web address] Description: Lipid [id number] 08:03:00 Test Item Value Reference Range Interpretation Comments Cholesterol, Total (test code = 209 mg/dL 100-199 H 2093-3) Triglycerides (test code = 2571-8) 172 mg/dL 0-149 H HDL Cholesterol (test code = 29 mg/dL >39 L 5-9) VLDL Cholesterol Renuka (test code = 32 mg/dL 5-40 01591-5) LDL Chol Calc (NIH) (test code = 148 mg/dL 0-99 H 02057-8) Comment: (test code = 06762-8) [employer] Description: Lipid [id number] 08:03:00 Test Item Value Reference Range Interpretation Comments Cholesterol, Total (test code = 209 mg/dL 100-199 H 2093-3) Triglycerides (test code = 2571-8) 172 mg/dL 0-149 H HDL Cholesterol (test code = 29 mg/dL >39 L 2085-9) VLDL Cholesterol Renuka (test code = 32 mg/dL 5-40 76025-4) LDL Chol Calc (NIH) (test code = 148 mg/dL 0-99 H 89553-4) Comment: (test code = 74736-2) [employer] Description: Lipid [id number] 08:03:00 Test Item Value Reference Range Interpretation Comments Cholesterol, Total (test code = 209 mg/dL 100-199 H 2093-3) Triglycerides (test code = 2571-8) 172 mg/dL 0-149 H HDL Cholesterol (test code = 29 mg/dL >39 L 5-9) VLDL Cholesterol Renuka (test code = 32 mg/dL 5-40 46926-7) LDL Chol Calc (NIH) (test code = 148 mg/dL 0-99 H 48458-1) Comment: (test code = 34246-1) [employer] Description: Lipid [id number] 08:03:00 Test Item Value Reference Range Interpretation Comments Cholesterol, Total (test code = 209 mg/dL 100-199 H 2093-3) Triglycerides (test code = 2571-8) 172 mg/dL 0-149 H HDL Cholesterol (test code = 29 mg/dL >39 L 2085-9) VLDL Cholesterol Renuka (test code = 32 mg/dL 5-40 83527-5) LDL Chol Calc (NIH) (test code = 148 mg/dL 0-99 H 03814-1) Comment: (test code = 36474-4) [employer] Description: Lipid [id number] 08:03:00 Test Item Value Reference Range Interpretation Comments Cholesterol, Total (test code = 209 mg/dL 100-199 H 2093-3) Triglycerides (test code = 2571-8) 172 mg/dL 0-149 H HDL Cholesterol (test code = 29 mg/dL >39 L 2085-9) VLDL Cholesterol Renuka (test code = 32 mg/dL 5-40 84408-2) LDL Chol Calc (NIH) (test code = 148 mg/dL 0-99 H 44712-3) Comment: (test code = 92713-9) [employer] Description: Lipid [id number] 08:03:00 Test Item Value Reference Range Interpretation Comments Cholesterol, Total (test code = 209 mg/dL 100-199 H 2093-3) Triglycerides (test code = 2571-8) 172 mg/dL 0-149 H HDL Cholesterol (test code = 29 mg/dL >39 L 2085-9) VLDL Cholesterol Renuka (test code = 32 mg/dL 5-40 16224-4) LDL Chol Calc (NIH) (test code = 148 mg/dL 0-99 H 48647-2) Comment: (test code = 91262-9) [employer] Description: Comp. Metabolic Panel (14)2020-03-07 06:49:00 Test Item Value Reference Range Interpretation Comments Glucose (test code = 2345-7) 441 mg/dL 65-99 H BUN (test code = 3094-0) 52 mg/dL 6-24 H Creatinine (test code = 2.05 mg/dL 0.76-1.27 H 2160-0) eGFR If NonAfricn Am (test 38 mL/min/1.73 >59 L code = 48555-3) eGFR If Africn Am (test code = 44 mL/min/1.73 >59 L 37509-6) BUN/Creatinine Ratio (test 25 9-20 H code = 3097-3) Sodium (test code = 2951-2) 138 mmol/L 134-144 Potassium (test code = 2823-3) 5.4 mmol/L 3.5-5.2 H Chloride (test code = 2075-0) 96 mmol/L 96-106 Carbon Dioxide, Total (test 29 mmol/L -29 code = 2027-9) Calcium (test code = 19327-6) 9.2 mg/dL 8.7-10.2 Protein, Total (test code = 6.2 g/dL 6.0-8.5 2885-2) Albumin (test code = 1751-7) 3.4 g/dL 4.0-5.0 L Globulin, Total (test code = 2.8 g/dL 1.5-4.5 60415-4) A/G Ratio (test code = 1759-0) 1.2 [...] (test 38 mL/min/1.73 >59 L code = 10292-0) eGFR If Africn Am (test code = 44 mL/min/1.73 >59 L 25884-7) BUN/Creatinine Ratio (test 25 9-20 H code = 3097-3) Sodium (test code = 2951-2) 138 mmol/L 134-144 Potassium (test code = 2823-3) 5.4 mmol/L 3.5-5.2 H Chloride (test code = 2075-0) 96 mmol/L 96-106 Carbon Dioxide, Total (test 29 mmol/L -29 code = 2027-9) Calcium (test code = 28146-9) 9.2 mg/dL 8.7-10.2 Protein, Total (test code = 6.2 g/dL 6.0-8.5 2885-2) Albumin (test code = 1751-7) 3.4 g/dL 4.0-5.0 L Globulin, Total (test code = 2.8 g/dL 1.5-4.5 43251-8) A/G Ratio (test code = 1759-0) 1.2 [...] (test 38 mL/min/1.73 >59 L code = 13359-0) eGFR If Africn Am (test code = 44 mL/min/1.73 >59 L 30655-0) BUN/Creatinine Ratio (test 25 9-20 H code = 3097-3) Sodium (test code = 2951-2) 138 mmol/L 134-144 Potassium (test code = 2823-3) 5.4 mmol/L 3.5-5.2 H Chloride (test code = 2075-0) 96 mmol/L 96-106 Carbon Dioxide, Total (test 29 mmol/L 20-29 code = 8-9) Calcium (test code = 15260-0) 9.2 mg/dL 8.7-10.2 Protein, Total (test code = 6.2 g/dL 6.0-8.5 2885-2) Albumin (test code = 1751-7) 3.4 g/dL 4.0-5.0 L Globulin, Total (test code = 2.8 g/dL 1.5-4.5 67562-5) A/G Ratio (test code = 1759-0) 1.2 [...] (test 38 mL/min/1.73 >59 L code = 41047-6) eGFR If Africn Am (test code = 44 mL/min/1.73 >59 L 74332-3) BUN/Creatinine Ratio (test 25 9-20 H code = 3097-3) Sodium (test code = 2951-2) 138 mmol/L 134-144 Potassium (test code = 2823-3) 5.4 mmol/L 3.5-5.2 H Chloride (test code = 2075-0) 96 mmol/L 96-106 Carbon Dioxide, Total (test 29 mmol/L 20-29 code = 8-9) Calcium (test code = 30397-5) 9.2 mg/dL 8.7-10.2 Protein, Total (test code = 6.2 g/dL 6.0-8.5 2885-2) Albumin (test code = 1751-7) 3.4 g/dL 4.0-5.0 L Globulin, Total (test code = 2.8 g/dL 1.5-4.5 51626-2) A/G Ratio (test code = 1759-0) 1.2 1.2-2.2 Bilirubin, Total (test code = 0.5 mg/dL 0.0-1.2 1974-) Alkaline Phosphatase (test 112 IU/L 39-117 code = 6768-6) AST (SGOT) (test code = 21 IU/L 0-40 1920-8) ALT (SGPT) (test code = 31 IU/L 0-44 1742-6) [facility] (142020-03-07 06:49:00 Test Item Value Reference Range Interpretation Comments Glucose (test code = 2345-7) 441 mg/dL 65-99 H BUN (test code = 3094-0) 52 mg/dL 6-24 H Creatinine (test code = 2.05 mg/dL 0.76-1.27 H 2160-0) eGFR If NonAfricn Am (test 38 mL/min/1.73 >59 L code = 08382-7) eGFR If Africn Am (test code = 44 mL/min/1.73 >59 L 55777-2) BUN/Creatinine Ratio (test 25 9-20 H code = 3097-3) Sodium (test code = 2951-2) 138 mmol/L 134-144 Potassium (test code = 2823-3) 5.4 mmol/L 3.5-5.2 H Chloride (test code = 2075-0) 96 mmol/L 96-106 Carbon Dioxide, Total (test 29 mmol/L 20-29 code = 8-9) Calcium (test code = 60390-7) 9.2 mg/dL 8.7-10.2 Protein, Total (test code = 6.2 g/dL 6.0-8.5 2885-2) Albumin (test code = 1751-7) 3.4 g/dL 4.0-5.0 L Globulin, Total (test code = 2.8 g/dL 1.5-4.5 21611-6) A/G Ratio (test code = 1759-0) 1.2 [...] (test 38 mL/min/1.73 >59 L code = 59438-1) eGFR If Africn Am (test code = 44 mL/min/1.73 >59 L 88164-5) BUN/Creatinine Ratio (test 25 9-20 H code = 3097-3) Sodium (test code = 2951-2) 138 mmol/L 134-144 Potassium (test code = 2823-3) 5.4 mmol/L 3.5-5.2 H Chloride (test code = 2075-0) 96 mmol/L 96-106 Carbon Dioxide, Total (test 29 mmol/L 20-29 code = 8-9) Calcium (test code = 45100-1) 9.2 mg/dL 8.7-10.2 Protein, Total (test code = 6.2 g/dL 6.0-8.5 2885-2) Albumin (test code = 1751-7) 3.4 g/dL 4.0-5.0 L Globulin, Total (test code = 2.8 g/dL 1.5-4.5 88550-4) A/G Ratio (test code = 1759-0) 1.2 [...] (test 38 mL/min/1.73 >59 L code = 76011-3) eGFR If Africn Am (test code = 44 mL/min/1.73 >59 L 05542-7) BUN/Creatinine Ratio (test 25 9-20 H code = 3097-3) Sodium (test code = 2951-2) 138 mmol/L 134-144 Potassium (test code = 2823-3) 5.4 mmol/L 3.5-5.2 H Chloride (test code = 2075-0) 96 mmol/L 96-106 Carbon Dioxide, Total (test 29 mmol/L 20-29 code = 8-9) Calcium (test code = 37039-8) 9.2 mg/dL 8.7-10.2 Protein, Total (test code = 6.2 g/dL 6.0-8.5 2885-2) Albumin (test code = 1751-7) 3.4 g/dL 4.0-5.0 L Globulin, Total (test code = 2.8 g/dL 1.5-4.5 32414-6) A/G Ratio (test code = 1759-0) 1.2 [...] (test 38 mL/min/1.73 >59 L code = 74151-0) eGFR If Africn Am (test code = 44 mL/min/1.73 >59 L 63444-1) BUN/Creatinine Ratio (test 25 9-20 H code = 3097-3) Sodium (test code = 2951-2) 138 mmol/L 134-144 Potassium (test code = 2823-3) 5.4 mmol/L 3.5-5.2 H Chloride (test code = 2075-0) 96 mmol/L 96-106 Carbon Dioxide, Total (test 29 mmol/L 20-29 code = 8-9) Calcium (test code = 36538-4) 9.2 mg/dL 8.7-10.2 Protein, Total (test code = 6.2 g/dL 6.0-8.5 2885-2) Albumin (test code = 1751-7) 3.4 g/dL 4.0-5.0 L Globulin, Total (test code = 2.8 g/dL 1.5-4.5 85064-6) A/G Ratio (test code = 1759-0) 1.2 [...] (test 38 mL/min/1.73 >59 L code = 66181-0) eGFR If Africn Am (test code = 44 mL/min/1.73 >59 L 58359-2) BUN/Creatinine Ratio (test 25 9-20 H code = 3097-3) Sodium (test code = 2951-2) 138 mmol/L 134-144 Potassium (test code = 2823-3) 5.4 mmol/L 3.5-5.2 H Chloride (test code = 2075-0) 96 mmol/L 96-106 Carbon Dioxide, Total (test 29 mmol/L - code = 2027-) Calcium (test code = 20116-3) 9.2 mg/dL 8.7-10.2 Protein, Total (test code = 6.2 g/dL 6.0-8.5 2885-2) Albumin (test code = 1751-7) 3.4 g/dL 4.0-5.0 L Globulin, Total (test code = 2.8 g/dL 1.5-4.5 24969-0) A/G Ratio (test code = 1759-0) 1.2 [...] (test 38 mL/min/1.73 >59 L code = 61887-1) eGFR If Africn Am (test code = 44 mL/min/1.73 >59 L 54584-4) BUN/Creatinine Ratio (test 25 9-20 H code = 3097-3) Sodium (test code = 2951-2) 138 mmol/L 134-144 Potassium (test code = 2823-3) 5.4 mmol/L 3.5-5.2 H Chloride (test code = 2075-0) 96 mmol/L 96-106 Carbon Dioxide, Total (test 29 mmol/L 20-29 code = 2027-) Calcium (test code = 96173-9) 9.2 mg/dL 8.7-10.2 Protein, Total (test code = 6.2 g/dL 6.0-8.5 2885-2) Albumin (test code = 1751-7) 3.4 g/dL 4.0-5.0 L Globulin, Total (test code = 2.8 g/dL 1.5-4.5 79470-8) A/G Ratio (test code = 1759-0) 1.2 [...] (test 38 mL/min/1.73 >59 L code = 75014-8) eGFR If Africn Am (test code = 44 mL/min/1.73 >59 L 31240-5) BUN/Creatinine Ratio (test 25 9-20 H code = 3097-3) Sodium (test code = 2951-2) 138 mmol/L 134-144 Potassium (test code = 2823-3) 5.4 mmol/L 3.5-5.2 H Chloride (test code = 2075-0) 96 mmol/L 96-106 Carbon Dioxide, Total (test 29 mmol/L code = 2027-) Calcium (test code = 38140-9) 9.2 mg/dL 8.7-10.2 Protein, Total (test code = 6.2 g/dL 6.0-8.5 2885-2) Albumin (test code = 1751-7) 3.4 g/dL 4.0-5.0 L Globulin, Total (test code = 2.8 g/dL 1.5-4.5 20677-1) A/G Ratio (test code = 1759-0) 1.2 [...] (test 38 mL/min/1.73 >59 L code = 79681-0) eGFR If Africn Am (test code = 44 mL/min/1.73 >59 L 06514-3) BUN/Creatinine Ratio (test 25 9-20 H code = 3097-3) Sodium (test code = 2951-2) 138 mmol/L 134-144 Potassium (test code = 2823-3) 5.4 mmol/L 3.5-5.2 H Chloride (test code = 2075-0) 96 mmol/L 96-106 Carbon Dioxide, Total (test 29 mmol/L 20-29 code = 8-9) Calcium (test code = 37310-5) 9.2 mg/dL 8.7-10.2 Protein, Total (test code = 6.2 g/dL 6.0-8.5 2885-2) Albumin (test code = 1751-7) 3.4 g/dL 4.0-5.0 L Globulin, Total (test code = 2.8 g/dL 1.5-4.5 78499-7) A/G Ratio (test code = 1759-0) 1.2 1.2-2.2 Bilirubin, Total (test code = 0.5 mg/dL 0.0-1.2 1974-2) Alkaline Phosphatase (test 112 IU/L 39-117 code = 6768-6) AST (SGOT) (test code = 21 IU/L 0-40 1920-8) ALT (SGPT) (test code = 31 IU/L 0-44 1742-6) [facility] Description: Comp. Metabolic Panel (2020-03-07 06:49:00 Test Item Value Reference Range Interpretation Comments Glucose (test code = 2345-7) 441 mg/dL 65-99 H BUN (test code = 3094-0) 52 mg/dL 6-24 H Creatinine (test code = 2.05 mg/dL 0.76-1.27 H 2160-0) eGFR If NonAfricn Am (test 38 mL/min/1.73 >59 L code = 46461-9) eGFR If Africn Am (test code = 44 mL/min/1.73 >59 L 62644-6) BUN/Creatinine Ratio (test 25 9-20 H code = 3097-3) Sodium (test code = 2951-2) 138 mmol/L 134-144 Potassium (test code = 2823-3) 5.4 mmol/L 3.5-5.2 H Chloride (test code = 2075-0) 96 mmol/L 96-106 Carbon Dioxide, Total (test 29 mmol/L 20-29 code = 8-9) Calcium (test code = 55871-4) 9.2 mg/dL 8.7-10.2 Protein, Total (test code = 6.2 g/dL 6.0-8.5 2885-2) Albumin (test code = 1751-7) 3.4 g/dL 4.0-5.0 L Globulin, Total (test code = 2.8 g/dL 1.5-4.5 91004-9) A/G Ratio (test code = 1759-0) 1.2 1.2-2.2 Bilirubin, Total (test code = 0.5 mg/dL 0.0-1.2 1974-2) Alkaline Phosphatase (test 112 IU/L 39-117 code = 6768-6) AST (SGOT) (test code = 21 IU/L 0-40 1920-8) ALT (SGPT) (test code = 31 IU/L 0-44 1742-6) [facility] Description: Comp. Metabolic Panel (14)2020-03-07 06:49:00 Test Item Value Reference Range Interpretation Comments Glucose (test code = 2345-7) 441 mg/dL 65-99 H BUN (test code = 3094-0) 52 mg/dL 6-24 H Creatinine (test code = 2.05 mg/dL 0.76-1.27 H 2160-0) eGFR If NonAfricn Am (test 38 mL/min/1.73 >59 L code = 70963-5) eGFR If Africn Am (test code = 44 mL/min/1.73 >59 L 53795-7) BUN/Creatinine Ratio (test 25 9-20 H code = 3097-3) Sodium (test code = 2951-2) 138 mmol/L 134-144 Potassium (test code = 2823-3) 5.4 mmol/L 3.5-5.2 H Chloride (test code = 2075-0) 96 mmol/L 96-106 Carbon Dioxide, Total (test 29 mmol/L 20-29 code = 8-9) Calcium (test code = 53044-8) 9.2 mg/dL 8.7-10.2 Protein, Total (test code = 6.2 g/dL 6.0-8.5 2885-2) Albumin (test code = 1751-7) 3.4 g/dL 4.0-5.0 L Globulin, Total (test code = 2.8 g/dL 1.5-4.5 86654-3) A/G Ratio (test code = 1759-0) 1.2 1.2-2.2 Bilirubin, Total (test code = 0.5 mg/dL 0.0-1.2 1975-2) Alkaline Phosphatase (test 112 IU/L 39-117 code = 6768-6) AST (SGOT) (test code = 21 IU/L 0-40 1920-8) ALT (SGPT) (test code = 31 IU/L 0-44 1742-6) [facility] Description: Comp. Metabolic Panel (14)2020-03-07 06:49:00 Test Item Value Reference Range Interpretation Comments Glucose (test code = 2345-7) 441 mg/dL 65-99 H BUN (test code = 3094-0) 52 mg/dL 6-24 H Creatinine (test code = 2.05 mg/dL 0.76-1.27 H 2160-0) eGFR If NonAfricn Am (test 38 mL/min/1.73 >59 L code = 49784-5) eGFR If Africn Am (test code = 44 mL/min/1.73 >59 L 01681-6) BUN/Creatinine Ratio (test 25 9-20 H code = 3097-3) Sodium (test code = 2951-2) 138 mmol/L 134-144 Potassium (test code = 2823-3) 5.4 mmol/L 3.5-5.2 H Chloride (test code = 2075-0) 96 mmol/L 96-106 Carbon Dioxide, Total (test 29 mmol/L 20-29 code = 8-9) Calcium (test code = 42960-2) 9.2 mg/dL 8.7-10.2 Protein, Total (test code = 6.2 g/dL 6.0-8.5 2885-2) Albumin (test code = 1751-7) 3.4 g/dL 4.0-5.0 L Globulin, Total (test code = 2.8 g/dL 1.5-4.5 89105-0) A/G Ratio (test code = 1759-0) 1.2 [...] (test 38 mL/min/1.73 >59 L code = 16565-4) eGFR If Africn Am (test code = 44 mL/min/1.73 >59 L 76097-0) BUN/Creatinine Ratio (test 25 9-20 H code = 3097-3) Sodium (test code = 2951-2) 138 mmol/L 134-144 Potassium (test code = 2823-3) 5.4 mmol/L 3.5-5.2 H Chloride (test code = 2075-0) 96 mmol/L 96-106 Carbon Dioxide, Total (test 29 mmol/L 20-29 code = 2028-9) Calcium (test code = 26719-4) 9.2 mg/dL 8.7-10.2 Protein, Total (test code = 6.2 g/dL 6.0-8.5 2885-2) Albumin (test code = 1751-7) 3.4 g/dL 4.0-5.0 L Globulin, Total (test code = 2.8 g/dL 1.5-4.5 34049-9) A/G Ratio (test code = 1759-0) 1.2 [...] (test 38 mL/min/1.73 >59 L code = 95017-2) eGFR If Africn Am (test code = 44 mL/min/1.73 >59 L 75813-8) BUN/Creatinine Ratio (test 25 9-20 H code = 3097-3) Sodium (test code = 2951-2) 138 mmol/L 134-144 Potassium (test code = 2823-3) 5.4 mmol/L 3.5-5.2 H Chloride (test code = 2075-0) 96 mmol/L 96-106 Carbon Dioxide, Total (test 29 mmol/L 20-29 code = 8-9) Calcium (test code = 18951-1) 9.2 mg/dL 8.7-10.2 Protein, Total (test code = 6.2 g/dL 6.0-8.5 2885-2) Albumin (test code = 1751-7) 3.4 g/dL 4.0-5.0 L Globulin, Total (test code = 2.8 g/dL 1.5-4.5 51270-0) A/G Ratio (test code = 1759-0) 1.2 [...] (test 38 mL/min/1.73 >59 L code = 18269-9) eGFR If Africn Am (test code = 44 mL/min/1.73 >59 L 06748-6) BUN/Creatinine Ratio (test 25 9-20 H code = 3097-3) Sodium (test code = 2951-2) 138 mmol/L 134-144 Potassium (test code = 2823-3) 5.4 mmol/L 3.5-5.2 H Chloride (test code = 2075-0) 96 mmol/L 96-106 Carbon Dioxide, Total (test 29 mmol/L - code = 2027-) Calcium (test code = 60119-7) 9.2 mg/dL 8.7-10.2 Protein, Total (test code = 6.2 g/dL 6.0-8.5 2885-2) Albumin (test code = 1751-7) 3.4 g/dL 4.0-5.0 L Globulin, Total (test code = 2.8 g/dL 1.5-4.5 80439-9) A/G Ratio (test code = 1759-0) 1.2 [...] (test 38 mL/min/1.73 >59 L code = 63912-6) eGFR If Africn Am (test code = 44 mL/min/1.73 >59 L 67929-9) BUN/Creatinine Ratio (test 25 9-20 H code = 3097-3) Sodium (test code = 2951-2) 138 mmol/L 134-144 Potassium (test code = 2823-3) 5.4 mmol/L 3.5-5.2 H Chloride (test code = 2075-0) 96 mmol/L 96-106 Carbon Dioxide, Total (test 29 mmol/L - code = 2027-) Calcium (test code = 39419-9) 9.2 mg/dL 8.7-10.2 Protein, Total (test code = 6.2 g/dL 6.0-8.5 2885-2) Albumin (test code = 1751-7) 3.4 g/dL 4.0-5.0 L Globulin, Total (test code = 2.8 g/dL 1.5-4.5 58304-6) A/G Ratio (test code = 1759-0) 1.2 [...] (test 38 mL/min/1.73 >59 L code = 25983-4) eGFR If Africn Am (test code = 44 mL/min/1.73 >59 L 60344-8) BUN/Creatinine Ratio (test 25 9-20 H code = 3097-3) Sodium (test code = 2951-2) 138 mmol/L 134-144 Potassium (test code = 2823-3) 5.4 mmol/L 3.5-5.2 H Chloride (test code = 2075-0) 96 mmol/L 96-106 Carbon Dioxide, Total (test 29 mmol/L 20-29 code = 8-9) Calcium (test code = 32372-0) 9.2 mg/dL 8.7-10.2 Protein, Total (test code = 6.2 g/dL 6.0-8.5 2885-2) Albumin (test code = 1751-7) 3.4 g/dL 4.0-5.0 L Globulin, Total (test code = 2.8 g/dL 1.5-4.5 60990-1) A/G Ratio (test code = 1759-0) 1.2 [...] (test 38 mL/min/1.73 >59 L code = 07478-8) eGFR If Africn Am (test code = 44 mL/min/1.73 >59 L 42559-9) BUN/Creatinine Ratio (test 25 9-20 H code = 3097-3) Sodium (test code = 2951-2) 138 mmol/L 134-144 Potassium (test code = 2823-3) 5.4 mmol/L 3.5-5.2 H Chloride (test code = 2075-0) 96 mmol/L 96-106 Carbon Dioxide, Total (test 29 mmol/L 20-29 code = 8-9) Calcium (test code = 55823-6) 9.2 mg/dL 8.7-10.2 Protein, Total (test code = 6.2 g/dL 6.0-8.5 2885-2) Albumin (test code = 1751-7) 3.4 g/dL 4.0-5.0 L Globulin, Total (test code = 2.8 g/dL 1.5-4.5 24613-2) A/G Ratio (test code = 1759-0) 1.2 1.2-2.2 Bilirubin, Total (test code = 0.5 mg/dL 0.0-1.2 1974-2) Alkaline Phosphatase (test 112 IU/L 39-117 code = 6768-6) AST (SGOT) (test code = 21 IU/L 0-40 1920-8) ALT (SGPT) (test code = 31 IU/L 0-44 1742-6) [facility] Description: Comp. Metabolic Panel (2020-03-07 06:49:00 Test Item Value Reference Range Interpretation Comments Glucose (test code = 2345-7) 441 mg/dL 65-99 H BUN (test code = 3094-0) 52 mg/dL 6-24 H Creatinine (test code = 2.05 mg/dL 0.76-1.27 H 2160-0) eGFR If NonAfricn Am (test 38 mL/min/1.73 >59 L code = 91471-3) eGFR If Africn Am (test code = 44 mL/min/1.73 >59 L 88760-9) BUN/Creatinine Ratio (test 25 9-20 H code = 3097-3) Sodium (test code = 2951-2) 138 mmol/L 134-144 Potassium (test code = 2823-3) 5.4 mmol/L 3.5-5.2 H Chloride (test code = 2075-0) 96 mmol/L 96-106 Carbon Dioxide, Total (test 29 mmol/L 20-29 code = 8-9) Calcium (test code = 53723-7) 9.2 mg/dL 8.7-10.2 Protein, Total (test code = 6.2 g/dL 6.0-8.5 2885-2) Albumin (test code = 1751-7) 3.4 g/dL 4.0-5.0 L Globulin, Total (test code = 2.8 g/dL 1.5-4.5 86832-0) A/G Ratio (test code = 1759-0) 1.2 [...] (test 38 mL/min/1.73 >59 L code = 45704-6) eGFR If Africn Am (test code = 44 mL/min/1.73 >59 L 55766-0) BUN/Creatinine Ratio (test 25 9-20 H code = 3097-3) Sodium (test code = 2951-2) 138 mmol/L 134-144 Potassium (test code = 2823-3) 5.4 mmol/L 3.5-5.2 H Chloride (test code = 2075-0) 96 mmol/L 96-106 Carbon Dioxide, Total (test 29 mmol/L 20-29 code = 8-9) Calcium (test code = 09973-0) 9.2 mg/dL 8.7-10.2 Protein, Total (test code = 6.2 g/dL 6.0-8.5 2885-2) Albumin (test code = 1751-7) 3.4 g/dL 4.0-5.0 L Globulin, Total (test code = 2.8 g/dL 1.5-4.5 48598-3) A/G Ratio (test code = 1759-0) 1.2 [...] (test 38 mL/min/1.73 >59 L code = 54036-3) eGFR If Africn Am (test code = 44 mL/min/1.73 >59 L 32338-8) BUN/Creatinine Ratio (test 25 9-20 H code = 3097-3) Sodium (test code = 2951-2) 138 mmol/L 134-144 Potassium (test code = 2823-3) 5.4 mmol/L 3.5-5.2 H Chloride (test code = 2075-0) 96 mmol/L 96-106 Carbon Dioxide, Total (test 29 mmol/L 20-29 code = 8-9) Calcium (test code = 62752-4) 9.2 mg/dL 8.7-10.2 Protein, Total (test code = 6.2 g/dL 6.0-8.5 2885-2) Albumin (test code = 1751-7) 3.4 g/dL 4.0-5.0 L Globulin, Total (test code = 2.8 g/dL 1.5-4.5 04543-2) A/G Ratio (test code = 1759-0) 1.2 [...] (test 38 mL/min/1.73 >59 L code = 99898-7) eGFR If Africn Am (test code = 44 mL/min/1.73 >59 L 95127-8) BUN/Creatinine Ratio (test 25 9-20 H code = 3097-3) Sodium (test code = 2951-2) 138 mmol/L 134-144 Potassium (test code = 2823-3) 5.4 mmol/L 3.5-5.2 H Chloride (test code = 2075-0) 96 mmol/L 96-106 Carbon Dioxide, Total (test 29 mmol/L 20-29 code = 2028-9) Calcium (test code = 65491-3) 9.2 mg/dL 8.7-10.2 Protein, Total (test code = 6.2 g/dL 6.0-8.5 2885-2) Albumin (test code = 1751-7) 3.4 g/dL 4.0-5.0 L Globulin, Total (test code = 2.8 g/dL 1.5-4.5 61207-5) A/G Ratio (test code = 1759-0) 1.2 [...] (test 38 mL/min/1.73 >59 L code = 89516-7) eGFR If Africn Am (test code = 44 mL/min/1.73 >59 L 25249-7) BUN/Creatinine Ratio (test 25 9-20 H code = 3097-3) Sodium (test code = 2951-2) 138 mmol/L 134-144 Potassium (test code = 2823-3) 5.4 mmol/L 3.5-5.2 H Chloride (test code = 2075-0) 96 mmol/L 96-106 Carbon Dioxide, Total (test 29 mmol/L 20-29 code = 2028-9) Calcium (test code = 38286-7) 9.2 mg/dL 8.7-10.2 Protein, Total (test code = 6.2 g/dL 6.0-8.5 2885-2) Albumin (test code = 1751-7) 3.4 g/dL 4.0-5.0 L Globulin, Total (test code = 2.8 g/dL 1.5-4.5 66081-3) A/G Ratio (test code = 1759-0) 1.2 [...] (test 38 mL/min/1.73 >59 L code = 34872-3) eGFR If Africn Am (test code = 44 mL/min/1.73 >59 L 96560-2) BUN/Creatinine Ratio (test 25 9-20 H code = 3097-3) Sodium (test code = 2951-2) 138 mmol/L 134-144 Potassium (test code = 2823-3) 5.4 mmol/L 3.5-5.2 H Chloride (test code = 2075-0) 96 mmol/L 96-106 Carbon Dioxide, Total (test 29 mmol/L 20-29 code = 2027-9) Calcium (test code = 69929-3) 9.2 mg/dL 8.7-10.2 Protein, Total (test code = 6.2 g/dL 6.0-8.5 2885-2) Albumin (test code = 1751-7) 3.4 g/dL 4.0-5.0 L Globulin, Total (test code = 2.8 g/dL 1.5-4.5 31446-4) A/G Ratio (test code = 1759-0) 1.2 [...] (test 38 mL/min/1.73 >59 L code = 85852-5) eGFR If Africn Am (test code = 44 mL/min/1.73 >59 L 29247-7) BUN/Creatinine Ratio (test 25 9-20 H code = 3097-3) Sodium (test code = 2951-2) 138 mmol/L 134-144 Potassium (test code = 2823-3) 5.4 mmol/L 3.5-5.2 H Chloride (test code = 2075-0) 96 mmol/L 96-106 Carbon Dioxide, Total (test 29 mmol/L 20-29 code = 2027-9) Calcium (test code = 63334-0) 9.2 mg/dL 8.7-10.2 Protein, Total (test code = 6.2 g/dL 6.0-8.5 2885-2) Albumin (test code = 1751-7) 3.4 g/dL 4.0-5.0 L Globulin, Total (test code = 2.8 g/dL 1.5-4.5 61467-0) A/G Ratio (test code = 1759-0) 1.2 1.2-2.2 Bilirubin, Total (test code = 0.5 mg/dL 0.0-1.2 1975-2) Alkaline Phosphatase (test 112 IU/L 39-117 code = 6768-6) AST (SGOT) (test code = 21 IU/L 0-40 1920-8) ALT (SGPT) (test code = 31 IU/L 0-44 1742-6) [facility][id number] 07:17:11Colt Serra MD 2019 7:47 AMIncision/DrainageDate/Time: 2019 7:45 AMPerformed by: Colt Serra MDAuthorized by: Colt Serra MD Consent: Verbal consent obtained.Risks and benefits: risks, benefits and alternatives were discussedConsent given by: patientPatient identity confirmed: verbally with patient and arm bandType: abscessLocation: L buttock.Anesthesia: local infiltration Anesthesia:Local Anesthetic: lidocaine 1% without epinephrineScalpel size: 11Incision type: single straightComplexity: complex (Loculations broken.)Drainage: serosanguinousDrainage amount: moderatePacking material: 1/4 in iodoform gauzePatient tolerance: Patient tolerated the procedure well with no immediate complicationsImmediate Post-Procedure Note Assistants to the procedure: NonePre-procedure diagnosis: abscessPost-procedure diagnosis: sameProcedures Performed: Incision/DrainageSpecimens removed: NoneEstimated blood loss (mL): NoneComplications: NoneType of anesthesia: NoneGrafts or Implants: NoneCH[facility] Description: Hemoglobin A1c/Hemoglobin.total in [id number] 16:33:00 Test Item Value Reference Range Interpretation Comments Hemoglobin A1c (test code 13.0 % 4.8-5.6 H . Prediabetes: 5.7 - = 4548-4) 6.4 Diabetes: > 6.4 Glycemic contro l for adults with mary ann betes: <7.0

P erforme d by:
[facility] [place] ([place])

[facility] Description: Hemoglobin A1c/Hemoglobin.total in Blood 2019-11-10 16:33:00 Test Item Value Reference Range Interpretation Comments Hemoglobin A1c (test code 13.0 % 4.8-5.6 H . Prediabetes: 5.7 - = 4548-4) 6.4 Diabetes: > 6.4 Glycemic contro l for adults with mary ann betes: <7.0

P erforme d by:
[facility] [employer] [place] ([place])

[facility] Description: Hemoglobin A1c/Hemoglobin.total in Blood 2019-11-10 16:33:00 Test Item Value Reference Range Interpretation Comments Hemoglobin A1c (test code 13.0 % 4.8-5.6 H . Prediabetes: 5.7 - = 4548-4) 6.4 Diabetes: > 6.4 Glycemic contro l for adults with mary ann betes: <7.0

P erforme d by:
[facility] [place] ([place])

[facility] Description: Hemoglobin A1c/Hemoglobin.total in Blood 2019-11-10 16:33:00 Test Item Value Reference Range Interpretation Comments Hemoglobin A1c (test code 13.0 % 4.8-5.6 H . Prediabetes: 5.7 - = 4548-4) 6.4 Diabetes: > 6.4 Glycemic contro l for adults with mary ann betes: <7.0

P erforme d by:
[facility] [place] ([place])

[facility] Description: Hemoglobin A1c/Hemoglobin.total in Blood 2019-11-10 16:33:00 Test Item Value Reference Range Interpretation Comments Hemoglobin A1c (test code 13.0 % 4.8-5.6 H . Prediabetes: 5.7 - = 4548-4) 6.4 Diabetes: > 6.4 Glycemic contro l for adults with mary ann betes: <7.0

P erforme d by:
[facility] [place] ([place])

[facility] Description: Hemoglobin A1c/Hemoglobin.total in Blood 2019-11-10 16:33:00 Test Item Value Reference Range Interpretation Comments Hemoglobin A1c (test code 13.0 % 4.8-5.6 H . Prediabetes: 5.7 - = 4548-4) 6.4 Diabetes: > 6.4 Glycemic contro l for adults with mary ann betes: <7.0

P erforme d by:
[facility] [place] ([place])

[facility] Description: Hemoglobin A1c/Hemoglobin.total in Blood 2019-11-10 16:33:00 Test Item Value Reference Range Interpretation Comments Hemoglobin A1c (test code 13.0 % 4.8-5.6 H . Prediabetes: 5.7 - = 4548-4) 6.4 Diabetes: > 6.4 Glycemic contro l for adults with mary ann betes: <7.0

P erforme d by:
[facility] [place] ([place])

[facility] Description: Hemoglobin A1c/Hemoglobin.total in Blood 2019-11-10 16:33:00 Test Item Value Reference Range Interpretation Comments Hemoglobin A1c (test code 13.0 % 4.8-5.6 H . Prediabetes: 5.7 - = 4548-4) 6.4 Diabetes: > 6.4 Glycemic contro l for adults with mary ann betes: <7.0

P erforme d by:
[facility] [place] ([place])

[facility] Description: Hemoglobin A1c/Hemoglobin.total in Blood 2019-11-10 16:33:00 Test Item Value Reference Range Interpretation Comments Hemoglobin A1c (test code 13.0 % 4.8-5.6 H . Prediabetes: 5.7 - = 4548-4) 6.4 Diabetes: > 6.4 Glycemic contro l for adults with mary ann betes: <7.0

P erforme d by:
[facility] [place] ([place])

[facility] Description: Hemoglobin A1c/Hemoglobin.total in Blood 2019-11-10 16:33:00 Test Item Value Reference Range Interpretation Comments Hemoglobin A1c (test code 13.0 % 4.8-5.6 H . Prediabetes: 5.7 - = 4548-4) 6.4 Diabetes: > 6.4 Glycemic contro l for adults with mary ann betes: <7.0

P erforme d by:
[facility] [place] ([place])

[facility] Description: Hemoglobin A1c/Hemoglobin.total in Blood 2019-11-10 16:33:00 Test Item Value Reference Range Interpretation Comments Hemoglobin A1c (test code 13.0 % 4.8-5.6 H . Prediabetes: 5.7 - = 4548-4) 6.4 Diabetes: > 6.4 Glycemic contro l for adults with mary ann betes: <7.0

P erforme d by:
[facility] [place] ([place])

[facility] Description: Hemoglobin A1c/Hemoglobin.total in Blood 2019-11-10 16:33:00 Test Item Value Reference Range Interpretation Comments Hemoglobin A1c (test code 13.0 % 4.8-5.6 H . Prediabetes: 5.7 - = 4548-4) 6.4 Diabetes: > 6.4 Glycemic contro l for adults with mary ann betes: <7.0

P erforme d by:
[facility] [place] ([place])

[facility] Description: Hemoglobin A1c/Hemoglobin.total in Blood 2019-11-10 16:33:00 Test Item Value Reference Range Interpretation Comments Hemoglobin A1c (test code 13.0 % 4.8-5.6 H . Prediabetes: 5.7 - = 4548-4) 6.4 Diabetes: >6.4 Glycemic contro l for adults with mary ann betes: <7.0

P erforme d by:
[facility] [place] ([place])

[facility] Description: Hemoglobin A1c/Hemoglobin.total in Blood 2019-11-10 16:33:00 Test Item Value Reference Range Interpretation Comments Hemoglobin A1c (test code 13.0 % 4.8-5.6 H . Prediabetes: 5.7 - = 4548-4) 6.4 Diabetes: > 6.4 Glycemic contro l for adults with mary ann betes: <7.0

P erforme d by:
[facility] [place] ([place])

[facility] Description: Hemoglobin A1c/Hemoglobin.total in Blood 2019-11-10 16:33:00 Test Item Value Reference Range Interpretation Comments Hemoglobin A1c (test code 13.0 % 4.8-5.6 H . Prediabetes: 5.7 - = 4548-4) 6.4 Diabetes: > 6.4 Glycemic contro l for adults with mary ann betes: <7.0

P erforme d by:
[facility] [employer] [facility] [place] ([place])

[facility] Description: Hemoglobin A1c/Hemoglobin.total in Blood 2019-11-10 16:33:00 Test Item Value Reference Range Interpretation Comments Hemoglobin A1c (test code 13.0 % 4.8-5.6 H . Prediabetes: 5.7 - = 4548-4) 6.4 Diabetes: > 6.4 Glycemic contro l for adults with mary ann betes: <7.0

P erforme d by:
[facility] [employer] [facility] [place] ([place])

[facility] Description: Hemoglobin A1c/Hemoglobin.total in Blood 2019-11-10 16:33:00 Test Item Value Reference Range Interpretation Comments Hemoglobin A1c (test code 13.0 % 4.8-5.6 H . Prediabetes: 5.7 - = 4548-4) 6.4 Diabetes: > 6.4 Glycemic contro l for adults with mary ann betes: <7.0

P erforme d by:
[facility] [employer] [facility] [place] ([place])

[facility] Description: Hemoglobin A1c/Hemoglobin.total in Blood 2019-11-10 16:33:00 Test Item Value Reference Range Interpretation Comments Hemoglobin A1c (test code 13.0 % 4.8-5.6 H . Prediabetes: 5.7 - = 4548-4) 6.4 Diabetes: > 6.4 Glycemic contro l for adults with mary ann betes: <7.0

P erforme d by:
[facility] [place] ([place])

[facility] Description: Hemoglobin A1c/Hemoglobin.total in Blood 2019-11-10 16:33:00 Test Item Value Reference Range Interpretation Comments Hemoglobin A1c (test code 13.0 % 4.8-5.6 H . Prediabetes: 5.7 - = 4548-4) 6.4 Diabetes: > 6.4 Glycemic contro l for adults with mary ann betes: <7.0

P erforme d by:
[facility] [employer] [place] ([place])

[facility] Description: Hemoglobin A1c/Hemoglobin.total in Blood 2019-11-10 16:33:00 Test Item Value Reference Range Interpretation Comments Hemoglobin A1c (test code 13.0 % 4.8-5.6 H . Prediabetes: 5.7 - = 4548-4) 6.4 Diabetes: > 6.4 Glycemic contro l for adults with mary ann betes: <7.0

P erforme d by:
[facility] [place] ([place])

[facility] Description: Hemoglobin A1c/Hemoglobin.total in Blood 2019-11-10 16:33:00 Test Item Value Reference Range Interpretation Comments Hemoglobin A1c (test code 13.0 % 4.8-5.6 H . Prediabetes: 5.7 - = 4548-4) 6.4 Diabetes: > 6.4 Glycemic contro l for adults with mary ann betes: <7.0

P erforme d by:
[facility] [place] ([place])

[facility] Description: Hemoglobin A1c/Hemoglobin.total in Blood 2019-11-10 16:33:00 Test Item Value Reference Range Interpretation Comments Hemoglobin A1c (test code 13.0 % 4.8-5.6 H . Prediabetes: 5.7 - = 4548-4) 6.4 Diabetes: > 6.4 Glycemic contro l for adults with mary ann betes: <7.0

P erforme d by:
[facility] [place] ([place])

[facility] Description: Hemoglobin A1c/Hemoglobin.total in Blood 2019-11-10 16:33:00 Test Item Value Reference Range Interpretation Comments Hemoglobin A1c (test code 13.0 % 4.8-5.6 H . Prediabetes: 5.7 - = 4548-4) 6.4 Diabetes: > 6.4 Glycemic contro l for adults with mary ann betes: <7.0

P erforme d by:
[facility] [employer] [place] ([place])

[facility] Description: Hemoglobin A1c/Hemoglobin.total in Blood 2019-11-10 16:33:00 Test Item Value Reference Range Interpretation Comments Hemoglobin A1c (test code 13.0 % 4.8-5.6 H . Prediabetes: 5.7 - = 4548-4) 6.4 Diabetes: > 6.4 Glycemic contro l for adults with mary ann betes: <7.0

P erforme d by:
[facility] [place] ([place])

[facility] Description: Hemoglobin A1c/Hemoglobin.total in Blood 2019-11-10 16:33:00 Test Item Value Reference Range Interpretation Comments Hemoglobin A1c (test code 13.0 % 4.8-5.6 H . Prediabetes: 5.7 - = 4548-4) 6.4 Diabetes: > 6.4 Glycemic contro l for adults with mary ann betes: <7.0

P erforme d by:
[facility] [place] ([place])

[facility] Description: Hemoglobin A1c/Hemoglobin.total in Blood 2019-11-10 16:33:00 Test Item Value Reference Range Interpretation Comments Hemoglobin A1c (test code 13.0 % 4.8-5.6 H . Prediabetes: 5.7 - = 4548-4) 6.4 Diabetes: > 6.4 Glycemic contro l for adults with mary ann betes: <7.0

P erforme d by:
[facility] [place] ([place])

[facility] Description: Hemoglobin A1c/Hemoglobin.total in Blood 2019-11-10 16:33:00 Test Item Value Reference Range Interpretation Comments Hemoglobin A1c (test code 13.0 % 4.8-5.6 H . Prediabetes: 5.7 - = 4548-4) 6.4 Diabetes: > 6.4 Glycemic contro l for adults with mary ann betes: <7.0

P erforme d by:
[facility] [employer] [place] ([place])

[facility] Description: Hemoglobin A1c/Hemoglobin.total in Blood 2019-11-10 16:33:00 Test Item Value Reference Range Interpretation Comments Hemoglobin A1c (test code 13.0 % 4.8-5.6 H . Prediabetes: 5.7 - = 4548-4) 6.4 Diabetes: > 6.4 Glycemic contro l for adults with mary ann betes: <7.0

P erforme d by:
[facility] [employer] [place] ([place])

[facility] Description: Hemoglobin A1c/Hemoglobin.total in Blood 2019-11-10 16:33:00 Test Item Value Reference Range Interpretation Comments Hemoglobin A1c (test code 13.0 % 4.8-5.6 H . Prediabetes: 5.7 - = 4548-4) 6.4 Diabetes: > 6.4 Glycemic contro l for adults with mary ann betes: <7.0

P erforme d by:
[facility] [place] ([place])

[facility] Description: Comp. Metabolic Panel (14)2019-11-10 03:19:00 Test Item Value Reference Range Interpretation Comments Glucose (test code = 2345-7) 439 mg/dL 65-99 H BUN (test code = 3094-0) 49 mg/dL 6-24 H Creatinine (test code = 2.17 mg/dL 0.76-1.27 H 2160-0) eGFR If NonAfricn Am (test 35 mL/min/1.73 >59 L code = 32372-1) eGFR If Africn Am (test code = 41 mL/min/1.73 >59 L 74454-1) BUN/Creatinine Ratio (test 23 9-20 H code = 3097-3) Sodium (test code = 2951-2) 137 mmol/L 134-144 Potassium (test code = 2823-3) 4.9 mmol/L 3.5-5.2 Chloride (test code = 2075-0) 93 mmol/L 96-106 L Carbon Dioxide, Total (test 29 mmol/L 20-29 code = 8-9) Calcium (test code = 46530-1) 9.5 mg/dL 8.7-10.2 Protein, Total (test code = 6.5 g/dL 6.0-8.5 2885-2) Albumin (test code = 1751-7) 3.6 g/dL 4.0-5.0 L Globulin, Total (test code = 2.9 g/dL 1.5-4.5 48436-0) A/G Ratio (test code = 1759-0) 1.2 1.2-2.2 Bilirubin, Total (test code = 0.5 mg/dL 0.0-1.2 1975-2) Alkaline Phosphatase (test 103 IU/L 39-117 code = 6768-6) AST (SGOT) (test code = 20 IU/L 0-40 1920-8) ALT (SGPT) (test code = 30 IU/L 0-44 1742-6) [facility] Description: Lipid [id number] 03:19:00 Test Item Value Reference Range Interpretation Comments Cholesterol, Total (test code = 231 mg/dL 100-199 H 2092-3) Triglycerides (test code = 2571-8) 215 mg/dL 0-149 H HDL Cholesterol (test code = 34 mg/dL >39 L 5-9) VLDL Cholesterol Renuka (test code = 43 mg/dL 5-40 H 66664-4) LDL Cholesterol Calc (test code = 154 mg/dL 0-99 H 03892-9) Comment: (test code = 94711-8) [facility] Description: Comp. Metabolic Panel (2019-11-10 03:19:00 Test Item Value Reference Range Interpretation Comments Glucose (test code = 2345-7) 439 mg/dL 65-99 H BUN (test code = 3094-0) 49 mg/dL 6-24 H Creatinine (test code = 2.17 mg/dL 0.76-1.27 H 2160-0) eGFR If NonAfricn Am (test 35 mL/min/1.73 >59 L code = 21353-3) eGFR If Africn Am (test code = 41 mL/min/1.73 >59 L 43052-8) BUN/Creatinine Ratio (test 23 9-20 H code = 3097-3) Sodium (test code = 2951-2) 137 mmol/L 134-144 Potassium (test code = 2823-3) 4.9 mmol/L 3.5-5.2 Chloride (test code = 2075-0) 93 mmol/L 96-106 L Carbon Dioxide, Total (test 29 mmol/L 20-29 code = 8-9) Calcium (test code = 32244-3) 9.5 mg/dL 8.7-10.2 Protein, Total (test code = 6.5 g/dL 6.0-8.5 2885-2) Albumin (test code = 1751-7) 3.6 g/dL 4.0-5.0 L Globulin, Total (test code = 2.9 g/dL 1.5-4.5 05793-5) A/G Ratio (test code = 1759-0) 1.2 1.2-2.2 Bilirubin, Total (test code = 0.5 mg/dL 0.0-1.2 1975-2) Alkaline Phosphatase (test 103 IU/L 39-117 code = 6768-6) AST (SGOT) (test code = 20 IU/L 0-40 1920-8) ALT (SGPT) (test code = 30 IU/L 0-44 2-6) [facility] Description: Lipid [id number] 03:19:00 Test Item Value Reference Range Interpretation Comments Cholesterol, Total (test code = 231 mg/dL 100-199 H 2092-3) Triglycerides (test code = 2571-8) 215 mg/dL 0-149 H HDL Cholesterol (test code = 34 mg/dL >39 L 5-9) VLDL Cholesterol Renuka (test code = 43 mg/dL 5-40 H 74069-6) LDL Cholesterol Calc (test code = 154 mg/dL 0-99 H 40731-4) Comment: (test code = 18536-5) [facility] Description: Comp. Metabolic Panel (2019-11-10 03:19:00 Test Item Value Reference Range Interpretation Comments Glucose (test code = 2345-7) 439 mg/dL 65-99 H BUN (test code = 3094-0) 49 mg/dL 6-24 H Creatinine (test code = 2.17 mg/dL 0.76-1.27 H 2160-0) eGFR If NonAfricn Am (test 35 mL/min/1.73 >59 L code = 41874-3) eGFR If Africn Am (test code = 41 mL/min/1.73 >59 L 64309-3) BUN/Creatinine Ratio (test 23 9-20 H code = 3097-3) Sodium (test code = 2951-2) 137 mmol/L 134-144 Potassium (test code = 2823-3) 4.9 mmol/L 3.5-5.2 Chloride (test code = 2075-0) 93 mmol/L 96-106 L Carbon Dioxide, Total (test 29 mmol/L 20-29 code = 8-9) Calcium (test code = 89744-1) 9.5 mg/dL 8.7-10.2 Protein, Total (test code = 6.5 g/dL 6.0-8.5 2885-2) Albumin (test code = 1751-7) 3.6 g/dL 4.0-5.0 L Globulin, Total (test code = 2.9 g/dL 1.5-4.5 67759-8) A/G Ratio (test code = 1759-0) 1.2 1.2-2.2 Bilirubin, Total (test code = 0.5 mg/dL 0.0-1.2 1974-2) Alkaline Phosphatase (test 103 IU/L 39-117 code = 6768-6) AST (SGOT) (test code = 20 IU/L 0-40 1920-8) ALT (SGPT) (test code = 30 IU/L 0-44 1742-6) [facility] Description: Lipid [id number] 03:19:00 Test Item Value Reference Range Interpretation Comments Cholesterol, Total (test code = 231 mg/dL 100-199 H 2093-3) Triglycerides (test code = 2571-8) 215 mg/dL 0-149 H HDL Cholesterol (test code = 34 mg/dL >39 L 2085-9) VLDL Cholesterol Renuka (test code = 43 mg/dL 5-40 H 86036-3) LDL Cholesterol Calc (test code = 154 mg/dL 0-99 H 51707-8) Comment: (test code = 89946-4) [facility] Description: Comp. Metabolic Panel (14)2019-11-10 03:19:00 Test Item Value Reference Range Interpretation Comments Glucose (test code = 2345-7) 439 mg/dL 65-99 H BUN (test code = 3094-0) 49 mg/dL 6-24 H Creatinine (test code = 2.17 mg/dL 0.76-1.27 H 2160-0) eGFR If NonAfricn Am (test 35 mL/min/1.73 >59 L code = 90313-4) eGFR If Africn Am (test code = 41 mL/min/1.73 >59 L 99740-7) BUN/Creatinine Ratio (test 23 9-20 H code = 3097-3) Sodium (test code = 2951-2) 137 mmol/L 134-144 Potassium (test code = 2823-3) 4.9 mmol/L 3.5-5.2 Chloride (test code = 2075-0) 93 mmol/L 96-106 L Carbon Dioxide, Total (test 29 mmol/L 20-29 code = 8-9) Calcium (test code = 85574-3) 9.5 mg/dL 8.7-10.2 Protein, Total (test code = 6.5 g/dL 6.0-8.5 2885-2) Albumin (test code = 1751-7) 3.6 g/dL 4.0-5.0 L Globulin, Total (test code = 2.9 g/dL 1.5-4.5 88248-9) A/G Ratio (test code = 1759-0) 1.2 1.2-2.2 Bilirubin, Total (test code = 0.5 mg/dL 0.0-1.2 1974-2) Alkaline Phosphatase (test 103 IU/L 39-117 code = 6768-6) AST (SGOT) (test code = 20 IU/L 0-40 1920-8) ALT (SGPT) (test code = 30 IU/L 0-44 1742-6) [facility] Description: Lipid [id number] 03:19:00 Test Item Value Reference Range Interpretation Comments Cholesterol, Total (test code = 231 mg/dL 100-199 H 2093-3) Triglycerides (test code = 2571-8) 215 mg/dL 0-149 H HDL Cholesterol (test code = 34 mg/dL >39 L 2084-9) VLDL Cholesterol Renuka (test code = 43 mg/dL 5-40 H 45439-5) LDL Cholesterol Calc (test code = 154 mg/dL 0-99 H 43582-1) Comment: (test code = 91884-4) [employer] Description: Comp. Metabolic Panel (14)2019-11-10 03:19:00 Test Item Value Reference Range Interpretation Comments Glucose (test code = 2345-7) 439 mg/dL 65-99 H BUN (test code = 3094-0) 49 mg/dL 6-24 H Creatinine (test code = 2.17 mg/dL 0.76-1.27 H 2160-0) eGFR If NonAfricn Am (test 35 mL/min/1.73 >59 L code = 03197-2) eGFR If Africn Am (test code = 41 mL/min/1.73 >59 L 59463-1) BUN/Creatinine Ratio (test 23 9-20 H code = 3097-3) Sodium (test code = 2951-2) 137 mmol/L 134-144 Potassium (test code = 2823-3) 4.9 mmol/L 3.5-5.2 Chloride (test code = 2075-0) 93 mmol/L 96-106 L Carbon Dioxide, Total (test 29 mmol/L 20-29 code = 8-9) Calcium (test code = 53150-4) 9.5 mg/dL 8.7-10.2 Protein, Total (test code = 6.5 g/dL 6.0-8.5 2885-2) Albumin (test code = 1751-7) 3.6 g/dL 4.0-5.0 L Globulin, Total (test code = 2.9 g/dL 1.5-4.5 67067-1) A/G Ratio (test code = 1759-0) 1.2 1.2-2.2 Bilirubin, Total (test code = 0.5 mg/dL 0.0-1.2 1975-2) Alkaline Phosphatase (test 103 IU/L 39-117 code = 6768-6) AST (SGOT) (test code = 20 IU/L 0-40 1920-8) ALT (SGPT) (test code = 30 IU/L 0-44 1742-6) [facility] Description: Lipid [id number] 03:19:00 Test Item Value Reference Range Interpretation Comments Cholesterol, Total (test code = 231 mg/dL 100-199 H 209-3) Triglycerides (test code = 2571-8) 215 mg/dL 0-149 H HDL Cholesterol (test code = 34 mg/dL >39 L 5-9) VLDL Cholesterol Renuka (test code = 43 mg/dL 5-40 H 05987-4) LDL Cholesterol Calc (test code = 154 mg/dL 0-99 H 61264-9) Comment: (test code = 37229-4) [facility] Description: Comp. Metabolic Panel (14)2019-11-10 03:19:00 Test Item Value Reference Range Interpretation Comments Glucose (test code = 2345-7) 439 mg/dL 65-99 H BUN (test code = 3094-0) 49 mg/dL 6-24 H Creatinine (test code = 2.17 mg/dL 0.76-1.27 H 2160-0) eGFR If NonAfricn Am (test 35 mL/min/1.73 >59 L code = 36836-0) eGFR If Africn Am (test code = 41 mL/min/1.73 >59 L 24947-7) BUN/Creatinine Ratio (test 23 9-20 H code = 3097-3) Sodium (test code = 2951-2) 137 mmol/L 134-144 Potassium (test code = 2823-3) 4.9 mmol/L 3.5-5.2 Chloride (test code = 2075-0) 93 mmol/L 96-106 L Carbon Dioxide, Total (test 29 mmol/L 20-29 code = 8-9) Calcium (test code = 57422-7) 9.5 mg/dL 8.7-10.2 Protein, Total (test code = 6.5 g/dL 6.0-8.5 2885-2) Albumin (test code = 1751-7) 3.6 g/dL 4.0-5.0 L Globulin, Total (test code = 2.9 g/dL 1.5-4.5 92934-0) A/G Ratio (test code = 1759-0) 1.2 1.2-2.2 Bilirubin, Total (test code = 0.5 mg/dL 0.0-1.2 1974-2) Alkaline Phosphatase (test 103 IU/L 39-117 code = 6768-6) AST (SGOT) (test code = 20 IU/L 0-40 1920-8) ALT (SGPT) (test code = 30 IU/L 0-44 1742-6) [facility] Description: Lipid [id number] 03:19:00 Test Item Value Reference Range Interpretation Comments Cholesterol, Total (test code = 231 mg/dL 100-199 H 2092-3) Triglycerides (test code = 2571-8) 215 mg/dL 0-149 H HDL Cholesterol (test code = 34 mg/dL >39 L 2084-9) VLDL Cholesterol Renuka (test code = 43 mg/dL 5-40 H 82447-5) LDL Cholesterol Calc (test code = 154 mg/dL 0-99 H 95544-7) Comment: (test code = 64018-5) [facility] Description: Comp. Metabolic Panel (14)2019-11-10 03:19:00 Test Item Value Reference Range Interpretation Comments Glucose (test code = 2345-7) 439 mg/dL 65-99 H BUN (test code = 3094-0) 49 mg/dL 6-24 H Creatinine (test code = 2.17 mg/dL 0.76-1.27 H 2160-0) eGFR If NonAfricn Am (test 35 mL/min/1.73 >59 L code = 32555-5) eGFR If Africn Am (test code = 41 mL/min/1.73 >59 L 89114-2) BUN/Creatinine Ratio (test 23 9-20 H code = 3097-3) Sodium (test code = 2951-2) 137 mmol/L 134-144 Potassium (test code = 2823-3) 4.9 mmol/L 3.5-5.2 Chloride (test code = 2075-0) 93 mmol/L 96-106 L Carbon Dioxide, Total (test 29 mmol/L 20-29 code = 8-9) Calcium (test code = 99699-8) 9.5 mg/dL 8.7-10.2 Protein, Total (test code = 6.5 g/dL 6.0-8.5 2885-2) Albumin (test code = 1751-7) 3.6 g/dL 4.0-5.0 L Globulin, Total (test code = 2.9 g/dL 1.5-4.5 00041-9) A/G Ratio (test code = 1759-0) 1.2 1.2-2.2 Bilirubin, Total (test code = 0.5 mg/dL 0.0-1.2 1975-2) Alkaline Phosphatase (test 103 IU/L 39-117 code = 6768-6) AST (SGOT) (test code = 20 IU/L 0-40 1920-8) ALT (SGPT) (test code = 30 IU/L 0-44 1742-6) [facility] Description: Lipid [id number] 03:19:00 Test Item Value Reference Range Interpretation Comments Cholesterol, Total (test code = 231 mg/dL 100-199 H 3-3) Triglycerides (test code = 2571-8) 215 mg/dL 0-149 H HDL Cholesterol (test code = 34 mg/dL >39 L 5-9) VLDL Cholesterol Renuka (test code = 43 mg/dL 5-40 H 50634-1) LDL Cholesterol Calc (test code = 154 mg/dL 0-99 H 90912-8) Comment: (test code = 20253-7) [facility] Description: Comp. Metabolic Panel (2019-11-10 03:19:00 Test Item Value Reference Range Interpretation Comments Glucose (test code = 2345-7) 439 mg/dL 65-99 H BUN (test code = 3094-0) 49 mg/dL 6-24 H Creatinine (test code = 2.17 mg/dL 0.76-1.27 H 2160-0) eGFR If NonAfricn Am (test 35 mL/min/1.73 >59 L code = 51944-7) eGFR If Africn Am (test code = 41 mL/min/1.73 >59 L 00167-4) BUN/Creatinine Ratio (test 23 9-20 H code = 3097-3) Sodium (test code = 2951-2) 137 mmol/L 134-144 Potassium (test code = 2823-3) 4.9 mmol/L 3.5-5.2 Chloride (test code = 2075-0) 93 mmol/L 96-106 L Carbon Dioxide, Total (test 29 mmol/L 20-29 code = 8-9) Calcium (test code = 29559-6) 9.5 mg/dL 8.7-10.2 Protein, Total (test code = 6.5 g/dL 6.0-8.5 2885-2) Albumin (test code = 1751-7) 3.6 g/dL 4.0-5.0 L Globulin, Total (test code = 2.9 g/dL 1.5-4.5 90396-9) A/G Ratio (test code = 1759-0) 1.2 1.2-2.2 Bilirubin, Total (test code = 0.5 mg/dL 0.0-1.2 1974-2) Alkaline Phosphatase (test 103 IU/L 39-117 code = 6768-6) AST (SGOT) (test code = 20 IU/L 0-40 1920-8) ALT (SGPT) (test code = 30 IU/L 0-44 1742-6) [facility] Description: Lipid [id number] 03:19:00 Test Item Value Reference Range Interpretation Comments Cholesterol, Total (test code = 231 mg/dL 100-199 H 2092-3) Triglycerides (test code = 2571-8) 215 mg/dL 0-149 H HDL Cholesterol (test code = 34 mg/dL >39 L 9) VLDL Cholesterol Renuka (test code = 43 mg/dL 5-40 H 34407-3) LDL Cholesterol Calc (test code = 154 mg/dL 0-99 H 01224-7) Comment: (test code = 77779-2) [facility]: Comp. Metabolic Panel ()2019-11-10 03:19:00 Test Item Value Reference Range Interpretation Comments Glucose (test code = 2345-7) 439 mg/dL 65-99 H BUN (test code = 3094-0) 49 mg/dL 6-24 H Creatinine (test code = 2.17 mg/dL 0.76-1.27 H 2160-0) eGFR If NonAfricn Am (test 35 mL/min/1.73 >59 L code = 88828-1) eGFR If Africn Am (test code = 41 mL/min/1.73 >59 L 64980-3) BUN/Creatinine Ratio (test 23 9-20 H code = 3097-3) Sodium (test code = 2951-2) 137 mmol/L 134-144 Potassium (test code = 2823-3) 4.9 mmol/L 3.5-5.2 Chloride (test code = 2075-0) 93 mmol/L 96-106 L Carbon Dioxide, Total (test 29 mmol/L 20-29 code = 8-9) Calcium (test code = 61075-9) 9.5 mg/dL 8.7-10.2 Protein, Total (test code = 6.5 g/dL 6.0-8.5 2885-2) Albumin (test code = 1751-7) 3.6 g/dL 4.0-5.0 L Globulin, Total (test code = 2.9 g/dL 1.5-4.5 36243-1) A/G Ratio (test code = 1759-0) 1.2 1.2-2.2 Bilirubin, Total (test code = 0.5 mg/dL 0.0-1.2 1975-2) Alkaline Phosphatase (test 103 IU/L 39-117 code = 6768-6) AST (SGOT) (test code = 20 IU/L 0-40 1920-8) ALT (SGPT) (test code = 30 IU/L 0-44 1742-6) [facility]: Lipid [id number] 03:19:00 Test Item Value Reference Range Interpretation Comments Cholesterol, Total (test code = 231 mg/dL 100-199 H 3-3) Triglycerides (test code = 2571-8) 215 mg/dL 0-149 H HDL Cholesterol (test code = 34 mg/dL >39 L 5-9) VLDL Cholesterol Renuka (test code = 43 mg/dL 5-40 H 91592-2) LDL Cholesterol Calc (test code = 154 mg/dL 0-99 H 81699-7) Comment: (test code = 10892-1) [facility] Description: Comp. Metabolic Panel (14)2019-11-10 03:19:00 Test Item Value Reference Range Interpretation Comments Glucose (test code = 2345-7) 439 mg/dL 65-99 H BUN (test code = 3094-0) 49 mg/dL 6-24 H Creatinine (test code = 2.17 mg/dL 0.76-1.27 H 2160-0) eGFR If NonAfricn Am (test 35 mL/min/1.73 >59 L code = 55260-4) eGFR If Africn Am (test code = 41 mL/min/1.73 >59 L 67766-3) BUN/Creatinine Ratio (test 23 9-20 H code = 3097-3) Sodium (test code = 2951-2) 137 mmol/L 134-144 Potassium (test code = 2823-3) 4.9 mmol/L 3.5-5.2 Chloride (test code = 2075-0) 93 mmol/L 96-106 L Carbon Dioxide, Total (test 29 mmol/L 20-29 code = 2027-9) Calcium (test code = 25885-3) 9.5 mg/dL 8.7-10.2 Protein, Total (test code = 6.5 g/dL 6.0-8.5 2885-2) Albumin (test code = 1751-7) 3.6 g/dL 4.0-5.0 L Globulin, Total (test code = 2.9 g/dL 1.5-4.5 21378-2) A/G Ratio (test code = 1759-0) 1.2 1.2-2.2 Bilirubin, Total (test code = 0.5 mg/dL 0.0-1.2 1974-2) Alkaline Phosphatase (test 103 IU/L 39-117 code = 6768-6) AST (SGOT) (test code = 20 IU/L 0-40 1920-8) ALT (SGPT) (test code = 30 IU/L 0-44 1742-6) [facility] Description: Lipid [id number] 03:19:00 Test Item Value Reference Range Interpretation Comments Cholesterol, Total (test code = 231 mg/dL 100-199 H 2092-3) Triglycerides (test code = 2571-8) 215 mg/dL 0-149 H HDL Cholesterol (test code = 34 mg/dL >39 L 2084-9) VLDL Cholesterol Renuka (test code = 43 mg/dL 5-40 H 69588-1) LDL Cholesterol Calc (test code = 154 mg/dL 0-99 H 22686-8) Comment: (test code = 79421-0) [facility]: Comp. Metabolic Panel ()2019-11-10 03:19:00 Test Item Value Reference Range Interpretation Comments Glucose (test code = 2345-7) 439 mg/dL 65-99 H BUN (test code = 3094-0) 49 mg/dL 6-24 H Creatinine (test code = 2.17 mg/dL 0.76-1.27 H 2160-0) eGFR If NonAfricn Am (test 35 mL/min/1.73 >59 L code = 87260-4) eGFR If Africn Am (test code = 41 mL/min/1.73 >59 L 72850-1) BUN/Creatinine Ratio (test 23 9-20 H code = 3097-3) Sodium (test code = 2951-2) 137 mmol/L 134-144 Potassium (test code = 2823-3) 4.9 mmol/L 3.5-5.2 Chloride (test code = 2075-0) 93 mmol/L 96-106 L Carbon Dioxide, Total (test 29 mmol/L 20-29 code = 2027-9) Calcium (test code = 16016-0) 9.5 mg/dL 8.7-10.2 Protein, Total (test code = 6.5 g/dL 6.0-8.5 2885-2) Albumin (test code = 1751-7) 3.6 g/dL 4.0-5.0 L Globulin, Total (test code = 2.9 g/dL 1.5-4.5 27253-5) A/G Ratio (test code = 1759-0) 1.2 1.2-2.2 Bilirubin, Total (test code = 0.5 mg/dL 0.0-1.2 1975-2) Alkaline Phosphatase (test 103 IU/L 39-117 code = 6768-6) AST (SGOT) (test code = 20 IU/L 0-40 1920-8) ALT (SGPT) (test code = 30 IU/L 0-44 1742-6) [facility] Description: Lipid [id number] 03:19:00 Test Item Value Reference Range Interpretation Comments Cholesterol, Total (test code = 231 mg/dL 100-199 H 3-3) Triglycerides (test code = 2571-8) 215 mg/dL 0-149 H HDL Cholesterol (test code = 34 mg/dL >39 L 2084-9) VLDL Cholesterol Renuka (test code = 43 mg/dL 5-40 H 34283-9) LDL Cholesterol Calc (test code = 154 mg/dL 0-99 H 17850-5) Comment: (test code = 61739-7) [facility]: Comp. Metabolic Panel ()2019-11-10 03:19:00 Test Item Value Reference Range Interpretation Comments Glucose (test code = 2345-7) 439 mg/dL 65-99 H BUN (test code = 3094-0) 49 mg/dL 6-24 H Creatinine (test code = 2.17 mg/dL 0.76-1.27 H 2160-0) eGFR If NonAfricn Am (test 35 mL/min/1.73 >59 L code = 91681-7) eGFR If Africn Am (test code = 41 mL/min/1.73 >59 L 13411-8) BUN/Creatinine Ratio (test 23 9-20 H code = 3097-3) Sodium (test code = 2951-2) 137 mmol/L 134-144 Potassium (test code = 2823-3) 4.9 mmol/L 3.5-5.2 Chloride (test code = 2075-0) 93 mmol/L 96-106 L Carbon Dioxide, Total (test 29 mmol/L 20-29 code = 8-9) Calcium (test code = 01823-7) 9.5 mg/dL 8.7-10.2 Protein, Total (test code = 6.5 g/dL 6.0-8.5 2885-2) Albumin (test code = 1751-7) 3.6 g/dL 4.0-5.0 L Globulin, Total (test code = 2.9 g/dL 1.5-4.5 36287-3) A/G Ratio (test code = 1759-0) 1.2 1.2-2.2 Bilirubin, Total (test code = 0.5 mg/dL 0.0-1.2 1974-2) Alkaline Phosphatase (test 103 IU/L 39-117 code = 6768-6) AST (SGOT) (test code = 20 IU/L 0-40 1920-8) ALT (SGPT) (test code = 30 IU/L 0-44 1742-6) [facility] Description: Lipid [id number] 03:19:00 Test Item Value Reference Range Interpretation Comments Cholesterol, Total (test code = 231 mg/dL 100-199 H 2093-3) Triglycerides (test code = 2571-8) 215 mg/dL 0-149 H HDL Cholesterol (test code = 34 mg/dL >39 L 5-9) VLDL Cholesterol Renuka (test code = 43 mg/dL 5-40 H 95581-2) LDL Cholesterol Calc (test code = 154 mg/dL 0-99 H 16810-7) Comment: (test code = 65148-5) [facility] Description: Comp. Metabolic Panel (14)2019-11-10 03:19:00 Test Item Value Reference Range Interpretation Comments Glucose (test code = 2345-7) 439 mg/dL 65-99 H BUN (test code = 3094-0) 49 mg/dL 6-24 H Creatinine (test code = 2.17 mg/dL 0.76-1.27 H 2160-0) eGFR If NonAfricn Am (test 35 mL/min/1.73 >59 L code = 32521-5) eGFR If Africn Am (test code = 41 mL/min/1.73 >59 L 59585-9) BUN/Creatinine Ratio (test 23 9-20 H code = 3097-3) Sodium (test code = 2951-2) 137 mmol/L 134-144 Potassium (test code = 2823-3) 4.9 mmol/L 3.5-5.2 Chloride (test code = 2075-0) 93 mmol/L 96-106 L Carbon Dioxide, Total (test 29 mmol/L 20-29 code = 8-9) Calcium (test code = 90594-3) 9.5 mg/dL 8.7-10.2 Protein, Total (test code = 6.5 g/dL 6.0-8.5 2885-2) Albumin (test code = 1751-7) 3.6 g/dL 4.0-5.0 L Globulin, Total (test code = 2.9 g/dL 1.5-4.5 57172-6) A/G Ratio (test code = 1759-0) 1.2 1.2-2.2 Bilirubin, Total (test code = 0.5 mg/dL 0.0-1.2 1974-2) Alkaline Phosphatase (test 103 IU/L 39-117 code = 6768-6) AST (SGOT) (test code = 20 IU/L 0-40 1920-8) ALT (SGPT) (test code = 30 IU/L 0-44 1742-6) [facility] Description: Lipid [id number] 03:19:00 Test Item Value Reference Range Interpretation Comments Cholesterol, Total (test code = 231 mg/dL 100-199 H 2092-3) Triglycerides (test code = 2571-8) 215 mg/dL 0-149 H HDL Cholesterol (test code = 34 mg/dL >39 L 2084-9) VLDL Cholesterol Renuka (test code = 43 mg/dL 5-40 H 71079-9) LDL Cholesterol Calc (test code = 154 mg/dL 0-99 H 21260-8) Comment: (test code = 07478-6) [facility] Description: Comp. Metabolic Panel (2019-11-10 03:19:00 Test Item Value Reference Range Interpretation Comments Glucose (test code = 2345-7) 439 mg/dL 65-99 H BUN (test code = 3094-0) 49 mg/dL 6-24 H Creatinine (test code = 2.17 mg/dL 0.76-1.27 H 2160-0) eGFR If NonAfricn Am (test 35 mL/min/1.73 >59 L code = 70325-0) eGFR If Africn Am (test code = 41 mL/min/1.73 >59 L 24222-6) BUN/Creatinine Ratio (test 23 9-20 H code = 3097-3) Sodium (test code = 2951-2) 137 mmol/L 134-144 Potassium (test code = 2823-3) 4.9 mmol/L 3.5-5.2 Chloride (test code = 2075-0) 93 mmol/L 96-106 L Carbon Dioxide, Total (test 29 mmol/L 20-29 code = 8-9) Calcium (test code = 20498-8) 9.5 mg/dL 8.7-10.2 Protein, Total (test code = 6.5 g/dL 6.0-8.5 2885-2) Albumin (test code = 1751-7) 3.6 g/dL 4.0-5.0 L Globulin, Total (test code = 2.9 g/dL 1.5-4.5 85156-8) A/G Ratio (test code = 1759-0) 1.2 1.2-2.2 Bilirubin, Total (test code = 0.5 mg/dL 0.0-1.2 1975-2) Alkaline Phosphatase (test 103 IU/L 39-117 code = 6768-6) AST (SGOT) (test code = 20 IU/L 0-40 1920-8) ALT (SGPT) (test code = 30 IU/L 0-44 1742-6) [facility] Description: Lipid [id number] 03:19:00 Test Item Value Reference Range Interpretation Comments Cholesterol, Total (test code = 231 mg/dL 100-199 H 2092-3) Triglycerides (test code = 2571-8) 215 mg/dL 0-149 H HDL Cholesterol (test code = 34 mg/dL >39 L 5-9) VLDL Cholesterol Renuka (test code = 43 mg/dL 5-40 H 31013-5) LDL Cholesterol Calc (test code = 154 mg/dL 0-99 H 27964-3) Comment: (test code = 55992-6) [facility] Description: Comp. Metabolic Panel (2019-11-10 03:19:00 Test Item Value Reference Range Interpretation Comments Glucose (test code = 2345-7) 439 mg/dL 65-99 H BUN (test code = 3094-0) 49 mg/dL 6-24 H Creatinine (test code = 2.17 mg/dL 0.76-1.27 H 2160-0) eGFR If NonAfricn Am (test 35 mL/min/1.73 >59 L code = 13797-2) eGFR If Africn Am (test code = 41 mL/min/1.73 >59 L 27918-6) BUN/Creatinine Ratio (test 23 9-20 H code = 3097-3) Sodium (test code = 2951-2) 137 mmol/L 134-144 Potassium (test code = 2823-3) 4.9 mmol/L 3.5-5.2 Chloride (test code = 2075-0) 93 mmol/L 96-106 L Carbon Dioxide, Total (test 29 mmol/L 20-29 code = 8-9) Calcium (test code = 95800-3) 9.5 mg/dL 8.7-10.2 Protein, Total (test code = 6.5 g/dL 6.0-8.5 2885-2) Albumin (test code = 1751-7) 3.6 g/dL 4.0-5.0 L Globulin, Total (test code = 2.9 g/dL 1.5-4.5 36441-1) A/G Ratio (test code = 1759-0) 1.2 1.2-2.2 Bilirubin, Total (test code = 0.5 mg/dL 0.0-1.2 1975-2) Alkaline Phosphatase (test 103 IU/L 39-117 code = 6768-6) AST (SGOT) (test code = 20 IU/L 0-40 1920-8) ALT (SGPT) (test code = 30 IU/L 0-44 1742-6) [facility] Description: Lipid [id number] 03:19:00 Test Item Value Reference Range Interpretation Comments Cholesterol, Total (test code = 231 mg/dL 100-199 H 2092-3) Triglycerides (test code = 2571-8) 215 mg/dL 0-149 H HDL Cholesterol (test code = 34 mg/dL >39 L 2085-9) VLDL Cholesterol Renuka (test code = 43 mg/dL 5-40 H 89109-4) LDL Cholesterol Calc (test code = 154 mg/dL 0-99 H 11543-6) Comment: (test code = 75891-5) [facility] Description: Comp. Metabolic Panel (2019-11-10 03:19:00 Test Item Value Reference Range Interpretation Comments Glucose (test code = 2345-7) 439 mg/dL 65-99 H BUN (test code = 3094-0) 49 mg/dL 6-24 H Creatinine (test code = 2.17 mg/dL 0.76-1.27 H 2160-0) eGFR If NonAfricn Am (test 35 mL/min/1.73 >59 L code = 72755-2) eGFR If Africn Am (test code = 41 mL/min/1.73 >59 L 13303-2) BUN/Creatinine Ratio (test 23 9-20 H code = 3097-3) Sodium (test code = 2951-2) 137 mmol/L 134-144 Potassium (test code = 2823-3) 4.9 mmol/L 3.5-5.2 Chloride (test code = 2075-0) 93 mmol/L 96-106 L Carbon Dioxide, Total (test 29 mmol/L 20-29 code = 8-9) Calcium (test code = 00682-3) 9.5 mg/dL 8.7-10.2 Protein, Total (test code = 6.5 g/dL 6.0-8.5 2885-2) Albumin (test code = 1751-7) 3.6 g/dL 4.0-5.0 L Globulin, Total (test code = 2.9 g/dL 1.5-4.5 11167-9) A/G Ratio (test code = 1759-0) 1.2 1.2-2.2 Bilirubin, Total (test code = 0.5 mg/dL 0.0-1.2 1975-2) Alkaline Phosphatase (test 103 IU/L 39-117 code = 6768-6) AST (SGOT) (test code = 20 IU/L 0-40 1920-8) ALT (SGPT) (test code = 30 IU/L 0-44 1742-6) [facility] Description: Lipid [id number] 03:19:00 Test Item Value Reference Range Interpretation Comments Cholesterol, Total (test code = 231 mg/dL 100-199 H 2093-3) Triglycerides (test code = 2571-8) 215 mg/dL 0-149 H HDL Cholesterol (test code = 34 mg/dL >39 L 2085-9) VLDL Cholesterol Renuka (test code = 43 mg/dL 5-40 H 75799-3) LDL Cholesterol Calc (test code = 154 mg/dL 0-99 H 38521-2) Comment: (test code = 61836-3) [facility] Description: Comp. Metabolic Panel (14)2019-11-10 03:19:00 Test Item Value Reference Range Interpretation Comments Glucose (test code = 2345-7) 439 mg/dL 65-99 H BUN (test code = 3094-0) 49 mg/dL 6-24 H Creatinine (test code = 2.17 mg/dL 0.76-1.27 H 2160-0) eGFR If NonAfricn Am (test 35 mL/min/1.73 >59 L code = 24711-6) eGFR If Africn Am (test code = 41 mL/min/1.73 >59 L 57700-7) BUN/Creatinine Ratio (test 23 9-20 H code = 3097-3) Sodium (test code = 2951-2) 137 mmol/L 134-144 Potassium (test code = 2823-3) 4.9 mmol/L 3.5-5.2 Chloride (test code = 2075-0) 93 mmol/L 96-106 L Carbon Dioxide, Total (test 29 mmol/L 20-29 code = 8-9) Calcium (test code = 31648-2) 9.5 mg/dL 8.7-10.2 Protein, Total (test code = 6.5 g/dL 6.0-8.5 2885-2) Albumin (test code = 1751-7) 3.6 g/dL 4.0-5.0 L Globulin, Total (test code = 2.9 g/dL 1.5-4.5 20182-5) A/G Ratio (test code = 1759-0) 1.2 1.2-2.2 Bilirubin, Total (test code = 0.5 mg/dL 0.0-1.2 1974-2) Alkaline Phosphatase (test 103 IU/L 39-117 code = 6768-6) AST (SGOT) (test code = 20 IU/L 0-40 1920-8) ALT (SGPT) (test code = 30 IU/L 0-44 1742-6) [employer] Description: Lipid [id number] 03:19:00 Test Item Value Reference Range Interpretation Comments Cholesterol, Total (test code = 231 mg/dL 100-199 H 2093-3) Triglycerides (test code = 2571-8) 215 mg/dL 0-149 H HDL Cholesterol (test code = 34 mg/dL >39 L 2084-9) VLDL Cholesterol Renuka (test code = 43 mg/dL 5-40 H 56462-5) LDL Cholesterol Calc (test code = 154 mg/dL 0-99 H 35279-3) Comment: (test code = 33571-1) [employer] Description: Comp. Metabolic Panel (14)2019-11-10 03:19:00 Test Item Value Reference Range Interpretation Comments Glucose (test code = 2345-7) 439 mg/dL 65-99 H BUN (test code = 3094-0) 49 mg/dL 6-24 H Creatinine (test code = 2.17 mg/dL 0.76-1.27 H 2160-0) eGFR If NonAfricn Am (test 35 mL/min/1.73 >59 L code = 52205-2) eGFR If Africn Am (test code = 41 mL/min/1.73 >59 L 96066-0) BUN/Creatinine Ratio (test 23 9-20 H code = 3097-3) Sodium (test code = 2951-2) 137 mmol/L 134-144 Potassium (test code = 2823-3) 4.9 mmol/L 3.5-5.2 Chloride (test code = 2075-0) 93 mmol/L 96-106 L Carbon Dioxide, Total (test 29 mmol/L 20-29 code = 8-9) Calcium (test code = 87865-0) 9.5 mg/dL 8.7-10.2 Protein, Total (test code = 6.5 g/dL 6.0-8.5 2885-2) Albumin (test code = 1751-7) 3.6 g/dL 4.0-5.0 L Globulin, Total (test code = 2.9 g/dL 1.5-4.5 38538-2) A/G Ratio (test code = 1759-0) 1.2 1.2-2.2 Bilirubin, Total (test code = 0.5 mg/dL 0.0-1.2 1975-2) Alkaline Phosphatase (test 103 IU/L 39-117 code = 6768-6) AST (SGOT) (test code = 20 IU/L 0-40 1920-8) ALT (SGPT) (test code = 30 IU/L 0-44 1742-6) [facility]: Lipid [id number] 03:19:00 Test Item Value Reference Range Interpretation Comments Cholesterol, Total (test code = 231 mg/dL 100-199 H 2092-3) Triglycerides (test code = 2571-8) 215 mg/dL 0-149 H HDL Cholesterol (test code = 34 mg/dL >39 L 5-9) VLDL Cholesterol Renuka (test code = 43 mg/dL 5-40 H 56228-2) LDL Cholesterol Calc (test code = 154 mg/dL 0-99 H 19261-5) Comment: (test code = 81898-4) [facility]: Comp[facility] Met[facility] (14)2019-11-10 03:19:00 Test Item Value Reference Range Interpretation Comments Glucose (test code = 2345-7) 439 mg/dL 65-99 H BUN (test code = 3094-0) 49 mg/dL 6-24 H Creatinine (test code = 2.17 mg/dL 0.76-1.27 H 2160-0) eGFR If NonAfricn Am (test 35 mL/min/1.73 >59 L code = 56031-9) eGFR If Africn Am (test code = 41 mL/min/1.73 >59 L 01107-4) BUN/Creatinine Ratio (test 23 9-20 H code = 3097-3) Sodium (test code = 2951-2) 137 mmol/L 134-144 Potassium (test code = 2823-3) 4.9 mmol/L 3.5-5.2 Chloride (test code = 2075-0) 93 mmol/L 96-106 L Carbon Dioxide, Total (test 29 mmol/L 20-29 code = 8-9) Calcium (test code = 16284-1) 9.5 mg/dL 8.7-10.2 Protein, Total (test code = 6.5 g/dL 6.0-8.5 2885-2) Albumin (test code = 1751-7) 3.6 g/dL 4.0-5.0 L Globulin, Total (test code = 2.9 g/dL 1.5-4.5 55712-1) A/G Ratio (test code = 1759-0) 1.2 1.2-2.2 Bilirubin, Total (test code = 0.5 mg/dL 0.0-1.2 1974-2) Alkaline Phosphatase (test 103 IU/L 39-117 code = 6768-6) AST (SGOT) (test code = 20 IU/L 0-40 1920-8) ALT (SGPT) (test code = 30 IU/L 0-44 1742-6) [facility] Description: Lipid [id number] 03:19:00 Test Item Value Reference Range Interpretation Comments Cholesterol, Total (test code = 231 mg/dL 100-199 H 3-3) Triglycerides (test code = 2571-8) 215 mg/dL 0-149 H HDL Cholesterol (test code = 34 mg/dL >39 L 2084-9) VLDL Cholesterol Renuka (test code = 43 mg/dL 5-40 H 89147-9) LDL Cholesterol Calc (test code = 154 mg/dL 0-99 H 73769-3) Comment: (test code = 78133-9) [facility] Description: Comp. Metabolic Panel (14)2019-11-10 03:19:00 Test Item Value Reference Range Interpretation Comments Glucose (test code = 2345-7) 439 mg/dL 65-99 H BUN (test code = 3094-0) 49 mg/dL 6-24 H Creatinine (test code = 2.17 mg/dL 0.76-1.27 H 2160-0) eGFR If NonAfricn Am (test 35 mL/min/1.73 >59 L code = 52966-4) eGFR If Africn Am (test code = 41 mL/min/1.73 >59 L 42034-6) BUN/Creatinine Ratio (test 23 9-20 H code = 3097-3) Sodium (test code = 2951-2) 137 mmol/L 134-144 Potassium (test code = 2823-3) 4.9 mmol/L 3.5-5.2 Chloride (test code = 2075-0) 93 mmol/L 96-106 L Carbon Dioxide, Total (test 29 mmol/L 20-29 code = 8-9) Calcium (test code = 18988-4) 9.5 mg/dL 8.7-10.2 Protein, Total (test code = 6.5 g/dL 6.0-8.5 2885-2) Albumin (test code = 1751-7) 3.6 g/dL 4.0-5.0 L Globulin, Total (test code = 2.9 g/dL 1.5-4.5 37095-4) A/G Ratio (test code = 1759-0) 1.2 1.2-2.2 Bilirubin, Total (test code = 0.5 mg/dL 0.0-1.2 1975-2) Alkaline Phosphatase (test 103 IU/L 39-117 code = 6768-6) AST (SGOT) (test code = 20 IU/L 0-40 1920-8) ALT (SGPT) (test code = 30 IU/L 0-44 1742-6) [facility] Description: Comp. Metabolic Panel (2019-11-10 03:19:00 Test Item Value Reference Range Interpretation Comments Glucose (test code = 2345-7) 439 mg/dL 65-99 H BUN (test code = 3094-0) 49 mg/dL 6-24 H Creatinine (test code = 2.17 mg/dL 0.76-1.27 H 2160-0) eGFR If NonAfricn Am (test 35 mL/min/1.73 >59 L code = 69151-9) eGFR If Africn Am (test code = 41 mL/min/1.73 >59 L 78873-8) BUN/Creatinine Ratio (test 23 9-20 H code = 3097-3) Sodium (test code = 2951-2) 137 mmol/L 134-144 Potassium (test code = 2823-3) 4.9 mmol/L 3.5-5.2 Chloride (test code = 2075-0) 93 mmol/L 96-106 L Carbon Dioxide, Total (test 29 mmol/L 20-29 code = 8-9) Calcium (test code = 71397-2) 9.5 mg/dL 8.7-10.2 Protein, Total (test code = 6.5 g/dL 6.0-8.5 2885-2) Albumin (test code = 1751-7) 3.6 g/dL 4.0-5.0 L Globulin, Total (test code = 2.9 g/dL 1.5-4.5 18890-7) A/G Ratio (test code = 1759-0) 1.2 1.2-2.2 Bilirubin, Total (test code = 0.5 mg/dL 0.0-1.2 1974-2) Alkaline Phosphatase (test 103 IU/L 39-117 code = 6768-6) AST (SGOT) (test code = 20 IU/L 0-40 1920-8) ALT (SGPT) (test code = 30 IU/L 0-44 1742-6) [facility] Description: Lipid [id number] 03:19:00 Test Item Value Reference Range Interpretation Comments Cholesterol, Total (test code = 231 mg/dL 100-199 H 2092-3) Triglycerides (test code = 2571-8) 215 mg/dL 0-149 H HDL Cholesterol (test code = 34 mg/dL >39 L 9) VLDL Cholesterol Renuka (test code = 43 mg/dL 5-40 H 54417-5) LDL Cholesterol Calc (test code = 154 mg/dL 0-99 H 80069-5) Comment: (test code = 45672-1) [facility] Description: Lipid [id number] 03:19:00 Test Item Value Reference Range Interpretation Comments Cholesterol, Total (test code = 231 mg/dL 100-199 H 3-3) Triglycerides (test code = 2571-8) 215 mg/dL 0-149 H HDL Cholesterol (test code = 34 mg/dL >39 L 9) VLDL Cholesterol Renuka (test code = 43 mg/dL 5-40 H 07722-0) LDL Cholesterol Calc (test code = 154 mg/dL 0-99 H 19593-5) Comment: (test code = 01656-7) [facility]: Comp. Metabolic Panel (14)2019-11-10 03:19:00 Test Item Value Reference Range Interpretation Comments Glucose (test code = 2345-7) 439 mg/dL 65-99 H BUN (test code = 3094-0) 49 mg/dL 6-24 H Creatinine (test code = 2.17 mg/dL 0.76-1.27 H 2160-0) eGFR If NonAfricn Am (test 35 mL/min/1.73 >59 L code = 68035-5) eGFR If Africn Am (test code = 41 mL/min/1.73 >59 L 42977-9) BUN/Creatinine Ratio (test 23 9-20 H code = 3097-3) Sodium (test code = 2951-2) 137 mmol/L 134-144 Potassium (test code = 2823-3) 4.9 mmol/L 3.5-5.2 Chloride (test code = 2075-0) 93 mmol/L 96-106 L Carbon Dioxide, Total (test 29 mmol/L 20-29 code = 8-9) Calcium (test code = 87259-5) 9.5 mg/dL 8.7-10.2 Protein, Total (test code = 6.5 g/dL 6.0-8.5 2885-2) Albumin (test code = 1751-7) 3.6 g/dL 4.0-5.0 L Globulin, Total (test code = 2.9 g/dL 1.5-4.5 32502-4) A/G Ratio (test code = 1759-0) 1.2 1.2-2.2 Bilirubin, Total (test code = 0.5 mg/dL 0.0-1.2 1975-2) Alkaline Phosphatase (test 103 IU/L 39-117 code = 6768-6) AST (SGOT) (test code = 20 IU/L 0-40 1920-8) ALT (SGPT) (test code = 30 IU/L 0-44 1742-6) [facility] Description: Lipid [id number] 03:19:00 Test Item Value Reference Range Interpretation Comments Cholesterol, Total (test code = 231 mg/dL 100-199 H 2092-3) Triglycerides (test code = 2571-8) 215 mg/dL 0-149 H HDL Cholesterol (test code = 34 mg/dL >39 L 2084-9) VLDL Cholesterol Renuka (test code = 43 mg/dL 5-40 H 97860-1) LDL Cholesterol Calc (test code = 154 mg/dL 0-99 H 04624-7) Comment: (test code = 32250-0) [facility] Description: Comp. Metabolic Panel (14)2019-11-10 03:19:00 Test Item Value Reference Range Interpretation Comments Glucose (test code = 2345-7) 439 mg/dL 65-99 H BUN (test code = 3094-0) 49 mg/dL 6-24 H Creatinine (test code = 2.17 mg/dL 0.76-1.27 H 2160-0) eGFR If NonAfricn Am (test 35 mL/min/1.73 >59 L code = 94780-3) eGFR If Africn Am (test code = 41 mL/min/1.73 >59 L 74625-8) BUN/Creatinine Ratio (test 23 9-20 H code = 3097-3) Sodium (test code = 2951-2) 137 mmol/L 134-144 Potassium (test code = 2823-3) 4.9 mmol/L 3.5-5.2 Chloride (test code = 2075-0) 93 mmol/L 96-106 L Carbon Dioxide, Total (test 29 mmol/L 20-29 code = 2027-9) Calcium (test code = 94329-2) 9.5 mg/dL 8.7-10.2 Protein, Total (test code = 6.5 g/dL 6.0-8.5 2885-2) Albumin (test code = 1751-7) 3.6 g/dL 4.0-5.0 L Globulin, Total (test code = 2.9 g/dL 1.5-4.5 22954-9) A/G Ratio (test code = 1759-0) 1.2 1.2-2.2 Bilirubin, Total (test code = 0.5 mg/dL 0.0-1.2 1974-2) Alkaline Phosphatase (test 103 IU/L 39-117 code = 6768-6) AST (SGOT) (test code = 20 IU/L 0-40 1920-8) ALT (SGPT) (test code = 30 IU/L 0-44 1742-6) [facility] Description: Lipid [id number] 03:19:00 Test Item Value Reference Range Interpretation Comments Cholesterol, Total (test code = 231 mg/dL 100-199 H 2092-3) Triglycerides (test code = 2571-8) 215 mg/dL 0-149 H HDL Cholesterol (test code = 34 mg/dL >39 L 2084-9) VLDL Cholesterol Renuka (test code = 43 mg/dL 5-40 H 16507-3) LDL Cholesterol Calc (test code = 154 mg/dL 0-99 H 60788-4) Comment: (test code = 11793-9) [facility]: Comp. Metabolic Panel ()2019-11-10 03:19:00 Test Item Value Reference Range Interpretation Comments Glucose (test code = 2345-7) 439 mg/dL 65-99 H BUN (test code = 3094-0) 49 mg/dL 6-24 H Creatinine (test code = 2.17 mg/dL 0.76-1.27 H 2160-0) eGFR If NonAfricn Am (test 35 mL/min/1.73 >59 L code = 38899-5) eGFR If Africn Am (test code = 41 mL/min/1.73 >59 L 11785-5) BUN/Creatinine Ratio (test 23 9-20 H code = 3097-3) Sodium (test code = 2951-2) 137 mmol/L 134-144 Potassium (test code = 2823-3) 4.9 mmol/L 3.5-5.2 Chloride (test code = 2075-0) 93 mmol/L 96-106 L Carbon Dioxide, Total (test 29 mmol/L 20-29 code = 2027-9) Calcium (test code = 53719-3) 9.5 mg/dL 8.7-10.2 Protein, Total (test code = 6.5 g/dL 6.0-8.5 2885-2) Albumin (test code = 1751-7) 3.6 g/dL 4.0-5.0 L Globulin, Total (test code = 2.9 g/dL 1.5-4.5 18568-9) A/G Ratio (test code = 1759-0) 1.2 1.2-2.2 Bilirubin, Total (test code = 0.5 mg/dL 0.0-1.2 1975-2) Alkaline Phosphatase (test 103 IU/L 39-117 code = 6768-6) AST (SGOT) (test code = 20 IU/L 0-40 1920-8) ALT (SGPT) (test code = 30 IU/L 0-44 1742-6) [facility]: Lipid [id number] 03:19:00 Test Item Value Reference Range Interpretation Comments Cholesterol, Total (test code = 231 mg/dL 100-199 H 2093-3) Triglycerides (test code = 2571-8) 215 mg/dL 0-149 H HDL Cholesterol (test code = 34 mg/dL >39 L 2084-9) VLDL Cholesterol Renuka (test code = 43 mg/dL 5-40 H 12286-5) LDL Cholesterol Calc (test code = 154 mg/dL 0-99 H 91302-3) Comment: (test code = 88206-2) [facility]: Comp. Metabolic Panel ()2019-11-10 03:19:00 Test Item Value Reference Range Interpretation Comments Glucose (test code = 2345-7) 439 mg/dL 65-99 H BUN (test code = 3094-0) 49 mg/dL 6-24 H Creatinine (test code = 2.17 mg/dL 0.76-1.27 H 2160-0) eGFR If NonAfricn Am (test 35 mL/min/1.73 >59 L code = 66144-4) eGFR If Africn Am (test code = 41 mL/min/1.73 >59 L 78993-6) BUN/Creatinine Ratio (test 23 9-20 H code = 3097-3) Sodium (test code = 2951-2) 137 mmol/L 134-144 Potassium (test code = 2823-3) 4.9 mmol/L 3.5-5.2 Chloride (test code = 2075-0) 93 mmol/L 96-106 L Carbon Dioxide, Total (test 29 mmol/L 20-29 code = 2028-9) Calcium (test code = 46084-2) 9.5 mg/dL 8.7-10.2 Protein, Total (test code = 6.5 g/dL 6.0-8.5 2885-2) Albumin (test code = 1751-7) 3.6 g/dL 4.0-5.0 L Globulin, Total (test code = 2.9 g/dL 1.5-4.5 99699-9) A/G Ratio (test code = 1759-0) 1.2 1.2-2.2 Bilirubin, Total (test code = 0.5 mg/dL 0.0-1.2 1974-2) Alkaline Phosphatase (test 103 IU/L 39-117 code = 6768-6) AST (SGOT) (test code = 20 IU/L 0-40 1920-8) ALT (SGPT) (test code = 30 IU/L 0-44 1742-6) [facility] Description: Lipid [id number] 03:19:00 Test Item Value Reference Range Interpretation Comments Cholesterol, Total (test code = 231 mg/dL 100-199 H 2093-3) Triglycerides (test code = 2571-8) 215 mg/dL 0-149 H HDL Cholesterol (test code = 34 mg/dL >39 L 2084-9) VLDL Cholesterol Renuka (test code = 43 mg/dL 5-40 H 45793-1) LDL Cholesterol Calc (test code = 154 mg/dL 0-99 H 51942-2) Comment: (test code = 18053-1) [facility] Description: Comp. Metabolic Panel (14)2019-11-10 03:19:00 Test Item Value Reference Range Interpretation Comments Glucose (test code = 2345-7) 439 mg/dL 65-99 H BUN (test code = 3094-0) 49 mg/dL 6-24 H Creatinine (test code = 2.17 mg/dL 0.76-1.27 H 2160-0) eGFR If NonAfricn Am (test 35 mL/min/1.73 >59 L code = 25989-8) eGFR If Africn Am (test code = 41 mL/min/1.73 >59 L 90132-9) BUN/Creatinine Ratio (test 23 9-20 H code = 3097-3) Sodium (test code = 2951-2) 137 mmol/L 134-144 Potassium (test code = 2823-3) 4.9 mmol/L 3.5-5.2 Chloride (test code = 2075-0) 93 mmol/L 96-106 L Carbon Dioxide, Total (test 29 mmol/L 20-29 code = 8-9) Calcium (test code = 26607-7) 9.5 mg/dL 8.7-10.2 Protein, Total (test code = 6.5 g/dL 6.0-8.5 2885-2) Albumin (test code = 1751-7) 3.6 g/dL 4.0-5.0 L Globulin, Total (test code = 2.9 g/dL 1.5-4.5 11311-6) A/G Ratio (test code = 1759-0) 1.2 1.2-2.2 Bilirubin, Total (test code = 0.5 mg/dL 0.0-1.2 1974-2) Alkaline Phosphatase (test 103 IU/L 39-117 code = 6768-6) AST (SGOT) (test code = 20 IU/L 0-40 1920-8) ALT (SGPT) (test code = 30 IU/L 0-44 1742-6) [facility] Description: Lipid [id number] 03:19:00 Test Item Value Reference Range Interpretation Comments Cholesterol, Total (test code = 231 mg/dL 100-199 H 2092-3) Triglycerides (test code = 2571-8) 215 mg/dL 0-149 H HDL Cholesterol (test code = 34 mg/dL >39 L 2084-9) VLDL Cholesterol Renuka (test code = 43 mg/dL 5-40 H 06575-2) LDL Cholesterol Calc (test code = 154 mg/dL 0-99 H 38365-5) Comment: (test code = 86926-7) [facility] Description: Comp. Metabolic Panel (2019-11-10 03:19:00 Test Item Value Reference Range Interpretation Comments Glucose (test code = 2345-7) 439 mg/dL 65-99 H BUN (test code = 3094-0) 49 mg/dL 6-24 H Creatinine (test code = 2.17 mg/dL 0.76-1.27 H 2160-0) eGFR If NonAfricn Am (test 35 mL/min/1.73 >59 L code = 07527-2) eGFR If Africn Am (test code = 41 mL/min/1.73 >59 L 75249-4) BUN/Creatinine Ratio (test 23 9-20 H code = 3097-3) Sodium (test code = 2951-2) 137 mmol/L 134-144 Potassium (test code = 2823-3) 4.9 mmol/L 3.5-5.2 Chloride (test code = 2075-0) 93 mmol/L 96-106 L Carbon Dioxide, Total (test 29 mmol/L 20-29 code = 8-9) Calcium (test code = 53227-4) 9.5 mg/dL 8.7-10.2 Protein, Total (test code = 6.5 g/dL 6.0-8.5 2885-2) Albumin (test code = 1751-7) 3.6 g/dL 4.0-5.0 L Globulin, Total (test code = 2.9 g/dL 1.5-4.5 67301-2) A/G Ratio (test code = 1759-0) 1.2 1.2-2.2 Bilirubin, Total (test code = 0.5 mg/dL 0.0-1.2 1974-2) Alkaline Phosphatase (test 103 IU/L 39-117 code = 6768-6) AST (SGOT) (test code = 20 IU/L 0-40 1920-8) ALT (SGPT) (test code = 30 IU/L 0-44 1742-6) [facility]: Lipid [id number] 03:19:00 Test Item Value Reference Range Interpretation Comments Cholesterol, Total (test code = 231 mg/dL 100-199 H 2092-3) Triglycerides (test code = 2571-8) 215 mg/dL 0-149 H HDL Cholesterol (test code = 34 mg/dL >39 L 2084-9) VLDL Cholesterol Renuka (test code = 43 mg/dL 5-40 H 57214-5) LDL Cholesterol Calc (test code = 154 mg/dL 0-99 H 50403-0) Comment: (test code = 75330-6) [facility] Description: Comp. Metabolic Panel (2019-11-10 03:19:00 Test Item Value Reference Range Interpretation Comments Glucose (test code = 2345-7) 439 mg/dL 65-99 H BUN (test code = 3094-0) 49 mg/dL 6-24 H Creatinine (test code = 2.17 mg/dL 0.76-1.27 H 2160-0) eGFR If NonAfricn Am (test 35 mL/min/1.73 >59 L code = 15611-8) eGFR If Africn Am (test code = 41 mL/min/1.73 >59 L 82919-0) BUN/Creatinine Ratio (test 23 9-20 H code = 3097-3) Sodium (test code = 2951-2) 137 mmol/L 134-144 Potassium (test code = 2823-3) 4.9 mmol/L 3.5-5.2 Chloride (test code = 2075-0) 93 mmol/L 96-106 L Carbon Dioxide, Total (test 29 mmol/L 20-29 code = 8-9) Calcium (test code = 97889-5) 9.5 mg/dL 8.7-10.2 Protein, Total (test code = 6.5 g/dL 6.0-8.5 2885-2) Albumin (test code = 1751-7) 3.6 g/dL 4.0-5.0 L Globulin, Total (test code = 2.9 g/dL 1.5-4.5 99203-2) A/G Ratio (test code = 1759-0) 1.2 1.2-2.2 Bilirubin, Total (test code = 0.5 mg/dL 0.0-1.2 1975-2) Alkaline Phosphatase (test 103 IU/L 39-117 code = 6768-6) AST (SGOT) (test code = 20 IU/L 0-40 1920-8) ALT (SGPT) (test code = 30 IU/L 0-44 1742-6) [facility] Description: Lipid [id number] 03:19:00 Test Item Value Reference Range Interpretation Comments Cholesterol, Total (test code = 231 mg/dL 100-199 H 3-3) Triglycerides (test code = 2571-8) 215 mg/dL 0-149 H HDL Cholesterol (test code = 34 mg/dL >39 L 2085-9) VLDL Cholesterol Renuka (test code = 43 mg/dL 5-40 H 20032-5) LDL Cholesterol Calc (test code = 154 mg/dL 0-99 H 82648-7) Comment: (test code = 71259-3) [facility]: [facility] (2019-11-10 03:19:00 Test Item Value Reference Range Interpretation Comments Glucose (test code = 2345-7) 439 mg/dL 65-99 H BUN (test code = 3094-0) 49 mg/dL 6-24 H Creatinine (test code = 2.17 mg/dL 0.76-1.27 H 2160-0) eGFR If NonAfricn Am (test 35 mL/min/1.73 >59 L code = 47262-0) eGFR If Africn Am (test code = 41 mL/min/1.73 >59 L 57386-1) BUN/Creatinine Ratio (test 23 9-20 H code = 3097-3) Sodium (test code = 2951-2) 137 mmol/L 134-144 Potassium (test code = 2823-3) 4.9 mmol/L 3.5-5.2 Chloride (test code = 2075-0) 93 mmol/L 96-106 L Carbon Dioxide, Total (test 29 mmol/L 20-29 code = 8-9) Calcium (test code = 64296-9) 9.5 mg/dL 8.7-10.2 Protein, Total (test code = 6.5 g/dL 6.0-8.5 2885-2) Albumin (test code = 1751-7) 3.6 g/dL 4.0-5.0 L Globulin, Total (test code = 2.9 g/dL 1.5-4.5 04331-9) A/G Ratio (test code = 1759-0) 1.2 1.2-2.2 Bilirubin, Total (test code = 0.5 mg/dL 0.0-1.2 1975-2) Alkaline Phosphatase (test 103 IU/L 39-117 code = 6768-6) AST (SGOT) (test code = 20 IU/L 0-40 1920-8) ALT (SGPT) (test code = 30 IU/L 0-44 1742-6) [facility] Description: Lipid [id number] 03:19:00 Test Item Value Reference Range Interpretation Comments Cholesterol, Total (test code = 231 mg/dL 100-199 H 2093-3) Triglycerides (test code = 2571-8) 215 mg/dL 0-149 H HDL Cholesterol (test code = 34 mg/dL >39 L 2085-9) VLDL Cholesterol Renuka (test code = 43 mg/dL 5-40 H 05191-1) LDL Cholesterol Calc (test code = 154 mg/dL 0-99 H 67593-2) Comment: (test code = 00563-8) [facility], CHEST, 1 VIEW, NON [id number] 23:44:00Reason for exam:- >SHORTNESS OF BREATHReason for exam:->Should this be performed at the bedside?->NoFINAL REPORT RAD, CHEST, 1 VIEW, NON DEPT INDICATION: SHORTNESS OF BREATH COMPARISON: Plain radiograph the chest dated 01/16/2018. FINDINGS: Portable frontal view of the chest. IMPRESSION: Left chest wall pacer device with leads overlying the right atrium and right ventricle. Enlarged cardiac mediastinal silhouette, unchanged, partially exaggerated by technique. Prominent pulmonary vasculature is concerning for pulmonary vascular congestion without overt pulmonary edema. No lobar consolidation. Possible trace left pleural effusion. No pneumothorax. Osseous structures are grossly unremarkable. Signed: Kassi Oseguera [facility] Verified Date/Time: 07/15/2019 23:44:04 B-TYPE NATRIURETIC FACTOR (BNP)2019-07-15 23:19:00 Test Item Value Reference Range Interpretation Comments B-TYPE NATRIURETIC PEPTIDE (BEAKER) 482 pg/mL 0-100 H (test code = 700) [employer] ID - LACIE DE LA VEGA [id number] 23:17:00 Test Item Value Reference Range Interpretation [...] failure, acidosis, acute neurological disease, and persistent tachyarrhythmia.Business Banker ID - LACIE BCOMPREHENSIVE METABOLIC [id number] 23:11:00 Test Item Value Reference Range Interpretation [...] S NOT APPLICABLE FOR DIALYSIS PATIEN TS. Business Banker ID - LACIE BCBC W/PLT COUNT & AUTO [id number] 22:51:00 Test Item Value Reference Range Interpretation [...] = 2801) Panel Description: Hemoglobin A1c/Hemoglobin.total in [id number] 09:26:00 Test Item Value Reference Range Interpretation Comments Hemoglobin A1c (test code 10.1 % 4.8-5.6 H . Prediabetes: 5.7 - = 4548-4) 6.4 Diabetes: > 6.4 Glycemic contro l for adults with mary ann betes: <7.0

P erforme d by:
[facility] [place] ([place])

[facility] Description: Hemoglobin A1c/Hemoglobin.total in Blood 2019-07-04 09:26:00 Test Item Value Reference Range Interpretation Comments Hemoglobin A1c (test code 10.1 % 4.8-5.6 H . Prediabetes: 5.7 - = 4548-4) 6.4 Diabetes: > 6.4 Glycemic contro l for adults with mary ann betes: <7.0

P erforme d by:
[facility] [place] ([place])

[facility] Description: Hemoglobin A1c/Hemoglobin.total in Blood 2019-07-04 09:26:00 Test Item Value Reference Range Interpretation Comments Hemoglobin A1c (test code 10.1 % 4.8-5.6 H . Prediabetes: 5.7 - = 4548-4) 6.4 Diabetes: > 6.4 Glycemic contro l for adults with mary ann betes: <7.0

P erforme d by:
[facility] [place] ([place])

[facility] Description: Hemoglobin A1c/Hemoglobin.total in Blood 2019-07-04 09:26:00 Test Item Value Reference Range Interpretation Comments Hemoglobin A1c (test code 10.1 % 4.8-5.6 H . Prediabetes: 5.7 - = 4548-4) 6.4 Diabetes: > 6.4 Glycemic contro l for adults with mary ann betes: <7.0

P erforme d by:
[facility] [place] ([place])

[facility] Description: Hemoglobin A1c/Hemoglobin.total in Blood 2019-07-04 09:26:00 Test Item Value Reference Range Interpretation Comments Hemoglobin A1c (test code 10.1 % 4.8-5.6 H . Prediabetes: 5.7 - = 4548-4) 6.4 Diabetes: > 6.4 Glycemic contro l for adults with mary ann betes: <7.0

P erforme d by:
[facility] [place] ([place])

[facility] Description: Hemoglobin A1c/Hemoglobin.total in Blood 2019-07-04 09:26:00 Test Item Value Reference Range Interpretation Comments Hemoglobin A1c (test code 10.1 % 4.8-5.6 H . Prediabetes: 5.7 - = 4548-4) 6.4 Diabetes: > 6.4 Glycemic contro l for adults with mary ann betes: <7.0

P erforme d by:
[facility] [place] ([place])

[facility] Description: Hemoglobin A1c/Hemoglobin.total in Blood 2019-07-04 09:26:00 Test Item Value Reference Range Interpretation Comments Hemoglobin A1c (test code 10.1 % 4.8-5.6 H . Prediabetes: 5.7 - = 4548-4) 6.4 Diabetes: > 6.4 Glycemic contro l for adults with mary ann betes: <7.0

P erforme d by:
[facility] [place] ([place])

[facility] Description: Hemoglobin A1c/Hemoglobin.total in Blood 2019-07-04 09:26:00 Test Item Value Reference Range Interpretation Comments Hemoglobin A1c (test code 10.1 % 4.8-5.6 H . Prediabetes: 5.7 - = 4548-4) 6.4 Diabetes: > 6.4 Glycemic contro l for adults with mary ann betes: <7.0

P erforme d by:
[facility] [place] ([place])

[facility] Description: Hemoglobin A1c/Hemoglobin.total in Blood 2019-07-04 09:26:00 Test Item Value Reference Range Interpretation Comments Hemoglobin A1c (test code 10.1 % 4.8-5.6 H . Prediabetes: 5.7 - = 4548-4) 6.4 Diabetes: > 6.4 Glycemic contro l for adults with mary ann betes: <7.0

P erforme d by:
[facility] ([place])

[facility] Description: Hemoglobin A1c/Hemoglobin.total in Blood 2019-07-04 09:26:00 Test Item Value Reference Range Interpretation Comments Hemoglobin A1c (test code 10.1 % 4.8-5.6 H . Prediabetes: 5.7 - = 4548-4) 6.4 Diabetes: > 6.4 Glycemic contro l for adults with mary ann betes: <7.0

P erforme d by:
[facility] ()

[facility] Description: Hemoglobin A1c/Hemoglobin.total in Blood 2019-07-04 09:26:00 Test Item Value Reference Range Interpretation Comments Hemoglobin A1c (test code 10.1 % 4.8-5.6 H . Prediabetes: 5.7 - = 4548-4) 6.4 Diabetes: > 6.4 Glycemic contro l for adults with mary ann betes: <7.0

P erforme d by:
[facility] ([place])

[facility] Description: Hemoglobin A1c/Hemoglobin.total in Blood 2019-07-04 09:26:00 Test Item Value Reference Range Interpretation Comments Hemoglobin A1c (test code 10.1 % 4.8-5.6 H . Prediabetes: 5.7 - = 4548-4) 6.4 Diabetes: > 6.4 Glycemic contro l for adults with mary ann betes: <7.0

P erforme d by:
[facility] ([place])

[facility] Description: Hemoglobin A1c/Hemoglobin.total in Blood 2019-07-04 09:26:00 Test Item Value Reference Range Interpretation Comments Hemoglobin A1c (test code 10.1 % 4.8-5.6 H . Prediabetes: 5.7 - = 4548-4) 6.4 Diabetes: > 6.4 Glycemic contro l for adults with mary ann betes: <7.0

P erforme d by:
[facility] [place] ([place])

[facility] Description: Hemoglobin A1c/Hemoglobin.total in Blood 2019-07-04 09:26:00 Test Item Value Reference Range Interpretation Comments Hemoglobin A1c (test code 10.1 % 4.8-5.6 H . Prediabetes: 5.7 - = 4548-4) 6.4 Diabetes: > 6.4 Glycemic contro l for adults with mary ann betes: <7.0

P erforme d by:
[facility] [place] ([place])

[facility] Description: Hemoglobin A1c/Hemoglobin.total in Blood 2019-07-04 09:26:00 Test Item Value Reference Range Interpretation Comments Hemoglobin A1c (test code 10.1 % 4.8-5.6 H . Prediabetes: 5.7 - = 4548-4) 6.4 Diabetes: > 6.4 Glycemic contro l for adults with mary ann betes: <7.0

P erforme d by:
[facility] [place] ([place])

[facility] Description: Hemoglobin A1c/Hemoglobin.total in Blood 2019-07-04 09:26:00 Test Item Value Reference Range Interpretation Comments Hemoglobin A1c (test code 10.1 % 4.8-5.6 H . Prediabetes: 5.7 - = 4548-4) 6.4 Diabetes: > 6.4 Glycemic contro l for adults with mary ann betes: <7.0

P erforme d by:
[facility] [place] ([place])

[facility] Description: Hemoglobin A1c/Hemoglobin.total in Blood 2019-07-04 09:26:00 Test Item Value Reference Range Interpretation Comments Hemoglobin A1c (test code 10.1 % 4.8-5.6 H . Prediabetes: 5.7 - = 4548-4) 6.4 Diabetes: > 6.4 Glycemic contro l for adults with mary ann betes: <7.0

P erforme d by:
[facility] [place] ([place])

[facility] Description: Hemoglobin A1c/Hemoglobin.total in Blood 2019-07-04 09:26:00 Test Item Value Reference Range Interpretation Comments Hemoglobin A1c (test code 10.1 % 4.8-5.6 H . Prediabetes: 5.7 - = 4548-4) 6.4 Diabetes: > 6.4 Glycemic contro l for adults with mary ann betes: <7.0

P erforme d by:
[facility] [place] ([place])

[facility] Description: Hemoglobin A1c/Hemoglobin.total in Blood 2019-07-04 09:26:00 Test Item Value Reference Range Interpretation Comments Hemoglobin A1c (test code 10.1 % 4.8-5.6 H . Prediabetes: 5.7 - = 4548-4) 6.4 Diabetes: > 6.4 Glycemic contro l for adults with mary ann betes: <7.0

P erforme d by:
[facility] [place] ([place])

[facility] Description: Hemoglobin A1c/Hemoglobin.total in Blood 2019-07-04 09:26:00 Test Item Value Reference Range Interpretation Comments Hemoglobin A1c (test code 10.1 % 4.8-5.6 H . Prediabetes: 5.7 - = 4548-4) 6.4 Diabetes: >6.4 Glycemic contro l for adults with mary ann betes: <7.0

P erforme d by:
[facility] [place] ([place])

[facility] Description: Hemoglobin A1c/Hemoglobin.total in Blood 2019-07-04 09:26:00 Test Item Value Reference Range Interpretation Comments Hemoglobin A1c (test code 10.1 % 4.8-5.6 H . Prediabetes: 5.7 - = 4548-4) 6.4 Diabetes: >6.4 Glycemic contro l for adults with mary ann betes: <7.0

P erforme d by:
[facility] [place] ([place])

[facility] Description: Hemoglobin A1c/Hemoglobin.total in Blood 2019-07-04 09:26:00 Test Item Value Reference Range Interpretation Comments Hemoglobin A1c (test code 10.1 % 4.8-5.6 H . Prediabetes: 5.7 - = 4548-4) 6.4 Diabetes: > 6.4 Glycemic contro l for adults with mary ann betes: <7.0

P erforme d by:
[facility] [place] ([place])

[facility] Description: Hemoglobin A1c/Hemoglobin.total in Blood 2019-07-04 09:26:00 Test Item Value Reference Range Interpretation Comments Hemoglobin A1c (test code 10.1 % 4.8-5.6 H . Prediabetes: 5.7 - = 4548-4) 6.4 Diabetes: > 6.4 Glycemic contro l for adults with mary ann betes: <7.0

P erforme d by:
[facility] [place] ([place])

[facility] Description: Hemoglobin A1c/Hemoglobin.total in Blood 2019-07-04 09:26:00 Test Item Value Reference Range Interpretation Comments Hemoglobin A1c (test code 10.1 % 4.8-5.6 H . Prediabetes: 5.7 - = 4548-4) 6.4 Diabetes: > 6.4 Glycemic contro l for adults with mary ann betes: <7.0

P erforme d by:
[facility] [place] ([place])

[facility] Description: Hemoglobin A1c/Hemoglobin.total in Blood 2019-07-04 09:26:00 Test Item Value Reference Range Interpretation Comments Hemoglobin A1c (test code 10.1 % 4.8-5.6 H . Prediabetes: 5.7 - = 4548-4) 6.4 Diabetes: > 6.4 Glycemic contro l for adults with mary ann betes: <7.0

P erforme d by:
[facility] [place] ([place])

[facility] Description: Hemoglobin A1c/Hemoglobin.total in Blood 2019-07-04 09:26:00 Test Item Value Reference Range Interpretation Comments Hemoglobin A1c (test code 10.1 % 4.8-5.6 H . Prediabetes: 5.7 - = 4548-4) 6.4 Diabetes: > 6.4 Glycemic contro l for adults with mary ann betes: <7.0

P erforme d by:
[facility] [place] ([place])

[facility] Description: Hemoglobin A1c/Hemoglobin.total in Blood 2019-07-04 09:26:00 Test Item Value Reference Range Interpretation Comments Hemoglobin A1c (test code 10.1 % 4.8-5.6 H . Prediabetes: 5.7 - = 4548-4) 6.4 Diabetes: > 6.4 Glycemic contro l for adults with mary ann betes: <7.0

P erforme d by:
[facility] ()

[facility] Description: Hemoglobin A1c/Hemoglobin.total in Blood 2019-07-04 09:26:00 Test Item Value Reference Range Interpretation Comments Hemoglobin A1c (test code 10.1 % 4.8-5.6 H . Prediabetes: 5.7 - = 4548-4) 6.4 Diabetes: > 6.4 Glycemic contro l for adults with mary ann betes: <7.0

P erforme d by:
[facility] [place] ()

[facility] Description: Hemoglobin A1c/Hemoglobin.total in Blood 2019-07-04 09:26:00 Test Item Value Reference Range Interpretation Comments Hemoglobin A1c (test code 10.1 % 4.8-5.6 H . Prediabetes: 5.7 - = 4548-4) 6.4 Diabetes: > 6.4 Glycemic contro l for adults with mary ann betes: <7.0

P erforme d by:
[facility] [place] ()

[facility] Description: Lipid [id number] 01:17:00 Test Item Value Reference Range Interpretation Comments Cholesterol, Total (test code = 241 mg/dL 100-199 H 2093-3) Triglycerides (test code = 2571-8) 57 mg/dL 0-149 HDL Cholesterol (test code = 37 mg/dL >39 L 2085-9) VLDL Cholesterol Renuka (test code = 11 mg/dL 5-40 60881-1) LDL Cholesterol Calc (test code = 193 mg/dL 0-99 H 13577-0) Comment: (test code = 98303-2) [employer] Description: Lipid [id number] 01:17:00 Test Item Value Reference Range Interpretation Comments Cholesterol, Total (test code = 241 mg/dL 100-199 H 2093-3) Triglycerides (test code = 2571-8) 57 mg/dL 0-149 HDL Cholesterol (test code = 37 mg/dL >39 L 2085-9) VLDL Cholesterol Renuka (test code = 11 mg/dL 5-40 92712-9) LDL Cholesterol Calc (test code = 193 mg/dL 0-99 H 71847-4) Comment: (test code = 21512-6) [employer] Description: Lipid [id number] 01:17:00 Test Item Value Reference Range Interpretation Comments Cholesterol, Total (test code = 241 mg/dL 100-199 H 2093-3) Triglycerides (test code = 2571-8) 57 mg/dL 0-149 HDL Cholesterol (test code = 37 mg/dL >39 L 2085-9) VLDL Cholesterol Renuka (test code = 11 mg/dL 5-40 46871-5) LDL Cholesterol Calc (test code = 193 mg/dL 0-99 H 90813-2) Comment: (test code = 12142-0) [employer] Description: Lipid [id number] 01:17:00 Test Item Value Reference Range Interpretation Comments Cholesterol, Total (test code = 241 mg/dL 100-199 H 2093-3) Triglycerides (test code = 2571-8) 57 mg/dL 0-149 HDL Cholesterol (test code = 37 mg/dL >39 L 2085-9) VLDL Cholesterol Renuka (test code = 11 mg/dL 5-40 51435-8) LDL Cholesterol Calc (test code = 193 mg/dL 0-99 H 78739-3) Comment: (test code = 77273-7) [employer] Description: Lipid [id number] 01:17:00 Test Item Value Reference Range Interpretation Comments Cholesterol, Total (test code = 241 mg/dL 100-199 H 2093-3) Triglycerides (test code = 2571-8) 57 mg/dL 0-149 HDL Cholesterol (test code = 37 mg/dL >39 L 2085-9) VLDL Cholesterol Renuka (test code = 11 mg/dL 5-40 34213-6) LDL Cholesterol Calc (test code = 193 mg/dL 0-99 H 01078-8) Comment: (test code = 20877-4) [employer] Description: Lipid [id number] 01:17:00 Test Item Value Reference Range Interpretation Comments Cholesterol, Total (test code = 241 mg/dL 100-199 H 2093-3) Triglycerides (test code = 2571-8) 57 mg/dL 0-149 HDL Cholesterol (test code = 37 mg/dL >39 L 2085-9) VLDL Cholesterol Renuka (test code = 11 mg/dL 5-40 27876-8) LDL Cholesterol Calc (test code = 193 mg/dL 0-99 H 66080-0) Comment: (test code = 52699-0) [employer] Description: Lipid [id number] 01:17:00 Test Item Value Reference Range Interpretation Comments Cholesterol, Total (test code = 241 mg/dL 100-199 H 2093-3) Triglycerides (test code = 2571-8) 57 mg/dL 0-149 HDL Cholesterol (test code = 37 mg/dL >39 L 2085-9) VLDL Cholesterol Renuka (test code = 11 mg/dL 5-40 79897-2) LDL Cholesterol Calc (test code = 193 mg/dL 0-99 H 02956-0) Comment: (test code = 18680-5) [employer] Description: Lipid [id number] 01:17:00 Test Item Value Reference Range Interpretation Comments Cholesterol, Total (test code = 241 mg/dL 100-199 H 2093-3) Triglycerides (test code = 2571-8) 57 mg/dL 0-149 HDL Cholesterol (test code = 37 mg/dL >39 L 2085-9) VLDL Cholesterol Renuka (test code = 11 mg/dL 5-40 77827-2) LDL Cholesterol Calc (test code = 193 mg/dL 0-99 H 34161-3) Comment: (test code = 75371-0) [employer] Description: Lipid [id number] 01:17:00 Test Item Value Reference Range Interpretation Comments Cholesterol, Total (test code = 241 mg/dL 100-199 H 2093-3) Triglycerides (test code = 2571-8) 57 mg/dL 0-149 HDL Cholesterol (test code = 37 mg/dL >39 L 2085-9) VLDL Cholesterol Renuka (test code = 11 mg/dL 5-40 51457-2) LDL Cholesterol Calc (test code = 193 mg/dL 0-99 H 01997-8) Comment: (test code = 26143-7) [employer] Description: Lipid [id number] 01:17:00 Test Item Value Reference Range Interpretation Comments Cholesterol, Total (test code = 241 mg/dL 100-199 H 2093-3) Triglycerides (test code = 2571-8) 57 mg/dL 0-149 HDL Cholesterol (test code = 37 mg/dL >39 L 2085-9) VLDL Cholesterol Renuka (test code = 11 mg/dL 5-40 34856-7) LDL Cholesterol Calc (test code = 193 mg/dL 0-99 H 26167-6) Comment: (test code = 48815-4) [employer] Description: Lipid [id number] 01:17:00 Test Item Value Reference Range Interpretation Comments Cholesterol, Total (test code = 241 mg/dL 100-199 H 2093-3) Triglycerides (test code = 2571-8) 57 mg/dL 0-149 HDL Cholesterol (test code = 37 mg/dL >39 L 2085-9) VLDL Cholesterol Renuka (test code = 11 mg/dL 5-40 59487-3) LDL Cholesterol Calc (test code = 193 mg/dL 0-99 H 62687-5) Comment: (test code = 72767-7) [employer] Description: Lipid [id number] 01:17:00 Test Item Value Reference Range Interpretation Comments Cholesterol, Total (test code = 241 mg/dL 100-199 H 2093-3) Triglycerides (test code = 2571-8) 57 mg/dL 0-149 HDL Cholesterol (test code = 37 mg/dL >39 L 2085-9) VLDL Cholesterol Renuka (test code = 11 mg/dL 5-40 03713-6) LDL Cholesterol Calc (test code = 193 mg/dL 0-99 H 78018-7) Comment: (test code = 70575-5) [email or web address] Description: Lipid [id number] 01:17:00 Test Item Value Reference Range Interpretation Comments Cholesterol, Total (test code = 241 mg/dL 100-199 H 2093-3) Triglycerides (test code = 2571-8) 57 mg/dL 0-149 HDL Cholesterol (test code = 37 mg/dL >39 L 2085-9) VLDL Cholesterol Renuka (test code = 11 mg/dL 5-40 43001-1) LDL Cholesterol Calc (test code = 193 mg/dL 0-99 H 07414-2) Comment: (test code = 94333-6) [employer] Description: Lipid [id number] 01:17:00 Test Item Value Reference Range Interpretation Comments Cholesterol, Total (test code = 241 mg/dL 100-199 H 2093-3) Triglycerides (test code = 2571-8) 57 mg/dL 0-149 HDL Cholesterol (test code = 37 mg/dL >39 L 2085-9) VLDL Cholesterol Renuka (test code = 11 mg/dL 5-40 08624-7) LDL Cholesterol Calc (test code = 193 mg/dL 0-99 H 73720-1) Comment: (test code = 12301-5) [employer] Description: Lipid [id number] 01:17:00 Test Item Value Reference Range Interpretation Comments Cholesterol, Total (test code = 241 mg/dL 100-199 H 2093-3) Triglycerides (test code = 2571-8) 57 mg/dL 0-149 HDL Cholesterol (test code = 37 mg/dL >39 L 2085-9) VLDL Cholesterol Renuka (test code = 11 mg/dL 5-40 87653-0) LDL Cholesterol Calc (test code = 193 mg/dL 0-99 H 38278-9) Comment: (test code = 12904-0) [employer] Description: Lipid [id number] 01:17:00 Test Item Value Reference Range Interpretation Comments Cholesterol, Total (test code = 241 mg/dL 100-199 H 2093-3) Triglycerides (test code = 2571-8) 57 mg/dL 0-149 HDL Cholesterol (test code = 37 mg/dL >39 L 2085-9) VLDL Cholesterol Renuka (test code = 11 mg/dL 5-40 84044-3) LDL Cholesterol Calc (test code = 193 mg/dL 0-99 H 55789-4) Comment: (test code = 84016-8) [facility] Description: Lipid [id number] 01:17:00 Test Item Value Reference Range Interpretation Comments Cholesterol, Total (test code = 241 mg/dL 100-199 H 2093-3) Triglycerides (test code = 2571-8) 57 mg/dL 0-149 HDL Cholesterol (test code = 37 mg/dL >39 L 2085-9) VLDL Cholesterol Renuka (test code = 11 mg/dL 5-40 43948-1) LDL Cholesterol Calc (test code = 193 mg/dL 0-99 H 79640-0) Comment: (test code = 18444-2) [email or web address] Description: Lipid [id number] 01:17:00 Test Item Value Reference Range Interpretation Comments Cholesterol, Total (test code = 241 mg/dL 100-199 H 2093-3) Triglycerides (test code = 2571-8) 57 mg/dL 0-149 HDL Cholesterol (test code = 37 mg/dL >39 L 2085-9) VLDL Cholesterol Renuka (test code = 11 mg/dL 5-40 10364-0) LDL Cholesterol Calc (test code = 193 mg/dL 0-99 H 49080-6) Comment: (test code = 52832-3) [employer] Description: Lipid [id number] 01:17:00 Test Item Value Reference Range Interpretation Comments Cholesterol, Total (test code = 241 mg/dL 100-199 H 2093-3) Triglycerides (test code = 2571-8) 57 mg/dL 0-149 HDL Cholesterol (test code = 37 mg/dL >39 L 2085-9) VLDL Cholesterol Renuka (test code = 11 mg/dL 5-40 01023-3) LDL Cholesterol Calc (test code = 193 mg/dL 0-99 H 49781-0) Comment: (test code = 35850-1) [facility] Description: Lipid [id number] 01:17:00 Test Item Value Reference Range Interpretation Comments Cholesterol, Total (test code = 241 mg/dL 100-199 H 2093-3) Triglycerides (test code = 2571-8) 57 mg/dL 0-149 HDL Cholesterol (test code = 37 mg/dL >39 L 2085-9) VLDL Cholesterol Renuka (test code = 11 mg/dL 5-40 67457-5) LDL Cholesterol Calc (test code = 193 mg/dL 0-99 H 84228-8) Comment: (test code = 97692-2) [employer] Description: Lipid [id number] 01:17:00 Test Item Value Reference Range Interpretation Comments Cholesterol, Total (test code = 241 mg/dL 100-199 H 2093-3) Triglycerides (test code = 2571-8) 57 mg/dL 0-149 HDL Cholesterol (test code = 37 mg/dL >39 L 2085-9) VLDL Cholesterol Renuka (test code = 11 mg/dL 5-40 27596-5) LDL Cholesterol Calc (test code = 193 mg/dL 0-99 H 83189-5) Comment: (test code = 80903-7) [employer] Description: Lipid [id number] 01:17:00 Test Item Value Reference Range Interpretation Comments Cholesterol, Total (test code = 241 mg/dL 100-199 H 2093-3) Triglycerides (test code = 2571-8) 57 mg/dL 0-149 HDL Cholesterol (test code = 37 mg/dL >39 L 2085-9) VLDL Cholesterol Renuka (test code = 11 mg/dL 5-40 59957-7) LDL Cholesterol Calc (test code = 193 mg/dL 0-99 H 99150-5) Comment: (test code = 85614-6) [employer] Description: Lipid [id number] 01:17:00 Test Item Value Reference Range Interpretation Comments Cholesterol, Total (test code = 241 mg/dL 100-199 H 2093-3) Triglycerides (test code = 2571-8) 57 mg/dL 0-149 HDL Cholesterol (test code = 37 mg/dL >39 L 2085-9) VLDL Cholesterol Renuka (test code = 11 mg/dL 5-40 73877-3) LDL Cholesterol Calc (test code = 193 mg/dL 0-99 H 22643-0) Comment: (test code = 15157-5) [employer] Description: Lipid [id number] 01:17:00 Test Item Value Reference Range Interpretation Comments Cholesterol, Total (test code = 241 mg/dL 100-199 H 2093-3) Triglycerides (test code = 2571-8) 57 mg/dL 0-149 HDL Cholesterol (test code = 37 mg/dL >39 L 2085-9) VLDL Cholesterol Renuka (test code = 11 mg/dL 5-40 98002-4) LDL Cholesterol Calc (test code = 193 mg/dL 0-99 H 37136-1) Comment: (test code = 26283-0) [employer] Description: Lipid [id number] 01:17:00 Test Item Value Reference Range Interpretation Comments Cholesterol, Total (test code = 241 mg/dL 100-199 H 2093-3) Triglycerides (test code = 2571-8) 57 mg/dL 0-149 HDL Cholesterol (test code = 37 mg/dL >39 L 2085-9) VLDL Cholesterol Renuka (test code = 11 mg/dL 5-40 70201-0) LDL Cholesterol Calc (test code = 193 mg/dL 0-99 H 03475-2) Comment: (test code = 96412-8) [employer] Description: Lipid [id number] 01:17:00 Test Item Value Reference Range Interpretation Comments Cholesterol, Total (test code = 241 mg/dL 100-199 H 2093-3) Triglycerides (test code = 2571-8) 57 mg/dL 0-149 HDL Cholesterol (test code = 37 mg/dL >39 L 2085-9) VLDL Cholesterol Renuka (test code = 11 mg/dL 5-40 78529-1) LDL Cholesterol Calc (test code = 193 mg/dL 0-99 H 02463-3) Comment: (test code = 27533-3) [employer] Description: Lipid [id number] 01:17:00 Test Item Value Reference Range Interpretation Comments Cholesterol, Total (test code = 241 mg/dL 100-199 H 2093-3) Triglycerides (test code = 2571-8) 57 mg/dL 0-149 HDL Cholesterol (test code = 37 mg/dL >39 L 2085-9) VLDL Cholesterol Renuka (test code = 11 mg/dL 5-40 40229-1) LDL Cholesterol Calc (test code = 193 mg/dL 0-99 H 73394-2) Comment: (test code = 60698-2) [email or web address] Description: Lipid [id number] 01:17:00 Test Item Value Reference Range Interpretation Comments Cholesterol, Total (test code = 241 mg/dL 100-199 H 2093-3) Triglycerides (test code = 2571-8) 57 mg/dL 0-149 HDL Cholesterol (test code = 37 mg/dL >39 L 2085-9) VLDL Cholesterol Renuka (test code = 11 mg/dL 5-40 46299-4) LDL Cholesterol Calc (test code = 193 mg/dL 0-99 H 38212-6) Comment: (test code = 62113-1) [employer]: [email or web address] Description: Lipid [id number] 01:17:00 Test Item Value Reference Range Interpretation Comments Cholesterol, Total (test code = 241 mg/dL 100-199 H 2093-3) Triglycerides (test code = 2571-8) 57 mg/dL 0-149 HDL Cholesterol (test code = 37 mg/dL >39 L 2085-9) VLDL Cholesterol Renuka (test code = 11 mg/dL 5-40 21880-2) LDL Cholesterol Calc (test code = 193 mg/dL 0-99 H 10401-2) Comment: (test code = 30211-3) [employer] Description: Comp. Metabolic Panel (14)2019-07-04 01:03:00 Test Item Value Reference Range Interpretation Comments Glucose (test code = 2345-7) 262 mg/dL 65-99 H BUN (test code = 3094-0) 27 mg/dL 6-24 H Creatinine (test code = 1.46 mg/dL 0.76-1.27 H 2160-0) eGFR If NonAfricn Am (test 57 mL/min/1.73 >59 L code = 20129-4) eGFR If Africn Am (test code = 66 mL/min/1.73 >59 44324-2) BUN/Creatinine Ratio (test 18 12-16 code = 3097-3) Sodium (test code = 2951-2) 140 mmol/L 134-144 Potassium (test code = 2823-3) 4.4 mmol/L 3.5-5.2 Chloride (test code = 2075-0) 106 mmol/L 96-106 Carbon Dioxide, Total (test 23 mmol/L - code = 2027-9) Calcium (test code = 55831-7) 8.7 mg/dL 8.7-10.2 Protein, Total (test code = 5.3 g/dL 6.0-8.5 L 2885-2) Albumin (test code = 1751-7) 3.0 g/dL 4.0-5.0 L Globulin, Total (test code = 2.3 g/dL 1.5-4.5 70904-5) A/G Ratio (test code = 1759-0) 1.3 [...] (test 57 mL/min/1.73 >59 L code = 82901-4) eGFR If Africn Am (test code = 66 mL/min/1.73 >59 73451-1) BUN/Creatinine Ratio (test 18 12-16 code = 3097-3) Sodium (test code = 2951-2) 140 mmol/L 134-144 Potassium (test code = 2823-3) 4.4 mmol/L 3.5-5.2 Chloride (test code = 2075-0) 106 mmol/L 96-106 Carbon Dioxide, Total (test 23 mmol/L -29 code = 8-9) Calcium (test code = 63368-1) 8.7 mg/dL 8.7-10.2 Protein, Total (test code = 5.3 g/dL 6.0-8.5 L 2885-2) Albumin (test code = 1751-7) 3.0 g/dL 4.0-5.0 L Globulin, Total (test code = 2.3 g/dL 1.5-4.5 45518-1) A/G Ratio (test code = 1759-0) 1.3 [...] (test 57 mL/min/1.73 >59 L code = 58134-5) eGFR If Africn Am (test code = 66 mL/min/1.73 >59 69305-4) BUN/Creatinine Ratio (test 18 9-20 code = 3097-3) Sodium (test code = 2951-2) 140 mmol/L 134-144 Potassium (test code = 2823-3) 4.4 mmol/L 3.5-5.2 Chloride (test code = 2075-0) 106 mmol/L 96-106 Carbon Dioxide, Total (test 23 mmol/L 20-29 code = 2028-9) Calcium (test code = 63476-5) 8.7 mg/dL 8.7-10.2 Protein, Total (test code = 5.3 g/dL 6.0-8.5 L 2885-2) Albumin (test code = 1751-7) 3.0 g/dL 4.0-5.0 L Globulin, Total (test code = 2.3 g/dL 1.5-4.5 30666-4) A/G Ratio (test code = 1759-0) 1.3 1.2-2.2 Bilirubin, Total (test code = 0.5 mg/dL 0.0-1.2 1974-2) Alkaline Phosphatase (test 95 IU/L 39-117 code = 6768-6) AST (SGOT) (test code = 16 IU/L 0-40 1920-8) ALT (SGPT) (test code = 23 IU/L 0-44 1742-6) [facility] Description: Comp. Metabolic Panel (2019-07-04 01:03:00 Test Item Value Reference Range Interpretation Comments Glucose (test code = 2345-7) 262 mg/dL 65-99 H BUN (test code = 3094-0) 27 mg/dL 6-24 H Creatinine (test code = 1.46 mg/dL 0.76-1.27 H 2160-0) eGFR If NonAfricn Am (test 57 mL/min/1.73 >59 L code = 10197-4) eGFR If Africn Am (test code = 66 mL/min/1.73 >59 20947-6) BUN/Creatinine Ratio (test 18 9-20 code = 3097-3) Sodium (test code = 2951-2) 140 mmol/L 134-144 Potassium (test code = 2823-3) 4.4 mmol/L 3.5-5.2 Chloride (test code = 2075-0) 106 mmol/L 96-106 Carbon Dioxide, Total (test 23 mmol/L 20-29 code = 2028-9) Calcium (test code = 97162-1) 8.7 mg/dL 8.7-10.2 Protein, Total (test code = 5.3 g/dL 6.0-8.5 L 2885-2) Albumin (test code = 1751-7) 3.0 g/dL 4.0-5.0 L Globulin, Total (test code = 2.3 g/dL 1.5-4.5 04804-2) A/G Ratio (test code = 1759-0) 1.3 1.2-2.2 Bilirubin, Total (test code = 0.5 mg/dL 0.0-1.2 1974-) Alkaline Phosphatase (test 95 IU/L 39-117 code = 6768-6) AST (SGOT) (test code = 16 IU/L 0-40 1920-8) ALT (SGPT) (test code = 23 IU/L 0-44 1742-6) [facility] Description: Comp. Metabolic Panel (14)2019-07-04 01:03:00 Test Item Value Reference Range Interpretation Comments Glucose (test code = 2345-7) 262 mg/dL 65-99 H BUN (test code = 3094-0) 27 mg/dL 6-24 H Creatinine (test code = 1.46 mg/dL 0.76-1.27 H 2160-0) eGFR If NonAfricn Am (test 57 mL/min/1.73 >59 L code = 05970-4) eGFR If Africn Am (test code = 66 mL/min/1.73 >59 37336-9) BUN/Creatinine Ratio (test 18 9-20 code = 3097-3) Sodium (test code = 2951-2) 140 mmol/L 134-144 Potassium (test code = 2823-3) 4.4 mmol/L 3.5-5.2 Chloride (test code = 2075-0) 106 mmol/L 96-106 Carbon Dioxide, Total (test 23 mmol/L 20-29 code = 8-9) Calcium (test code = 93785-4) 8.7 mg/dL 8.7-10.2 Protein, Total (test code = 5.3 g/dL 6.0-8.5 L 2885-2) Albumin (test code = 1751-7) 3.0 g/dL 4.0-5.0 L Globulin, Total (test code = 2.3 g/dL 1.5-4.5 54411-6) A/G Ratio (test code = 1759-0) 1.3 1.2-2.2 Bilirubin, Total (test code = 0.5 mg/dL 0.0-1.2 1975-2) Alkaline Phosphatase (test 95 IU/L 39-117 code = 6768-6) AST (SGOT) (test code = 16 IU/L 0-40 1920-8) ALT (SGPT) (test code = 23 IU/L 0-44 1742-6) [facility] Description: Comp. Metabolic Panel (14)2019-07-04 01:03:00 Test Item Value Reference Range Interpretation Comments Glucose (test code = 2345-7) 262 mg/dL 65-99 H BUN (test code = 3094-0) 27 mg/dL 6-24 H Creatinine (test code = 1.46 mg/dL 0.76-1.27 H 2160-0) eGFR If NonAfricn Am (test 57 mL/min/1.73 >59 L code = 89602-6) eGFR If Africn Am (test code = 66 mL/min/1.73 >59 94531-7) BUN/Creatinine Ratio (test 18 9-20 code = 3097-3) Sodium (test code = 2951-2) 140 mmol/L 134-144 Potassium (test code = 2823-3) 4.4 mmol/L 3.5-5.2 Chloride (test code = 2075-0) 106 mmol/L 96-106 Carbon Dioxide, Total (test 23 mmol/L 20-29 code = 2028-9) Calcium (test code = 89060-8) 8.7 mg/dL 8.7-10.2 Protein, Total (test code = 5.3 g/dL 6.0-8.5 L 2885-2) Albumin (test code = 1751-7) 3.0 g/dL 4.0-5.0 L Globulin, Total (test code = 2.3 g/dL 1.5-4.5 60123-3) A/G Ratio (test code = 1759-0) 1.3 [...] (test 57 mL/min/1.73 >59 L code = 27945-6) eGFR If Africn Am (test code = 66 mL/min/1.73 >59 12636-1) BUN/Creatinine Ratio (test 18 9-20 code = 3097-3) Sodium (test code = 2951-2) 140 mmol/L 134-144 Potassium (test code = 2823-3) 4.4 mmol/L 3.5-5.2 Chloride (test code = 2075-0) 106 mmol/L 96-106 Carbon Dioxide, Total (test 23 mmol/L 20-29 code = 2028-9) Calcium (test code = 37329-1) 8.7 mg/dL 8.7-10.2 Protein, Total (test code = 5.3 g/dL 6.0-8.5 L 2885-2) Albumin (test code = 1751-7) 3.0 g/dL 4.0-5.0 L Globulin, Total (test code = 2.3 g/dL 1.5-4.5 89358-1) A/G Ratio (test code = 1759-0) 1.3 [...] (test 57 mL/min/1.73 >59 L code = 17493-7) eGFR If Africn Am (test code = 66 mL/min/1.73 >59 03842-5) BUN/Creatinine Ratio (test 18 12-16 code = 3097-3) Sodium (test code = 2951-2) 140 mmol/L 134-144 Potassium (test code = 2823-3) 4.4 mmol/L 3.5-5.2 Chloride (test code = 2075-0) 106 mmol/L 96-106 Carbon Dioxide, Total (test 23 mmol/L 20-29 code = 8-9) Calcium (test code = 26916-3) 8.7 mg/dL 8.7-10.2 Protein, Total (test code = 5.3 g/dL 6.0-8.5 L 2885-2) Albumin (test code = 1751-7) 3.0 g/dL 4.0-5.0 L Globulin, Total (test code = 2.3 g/dL 1.5-4.5 22946-9) A/G Ratio (test code = 1759-0) 1.3 [...] (test 57 mL/min/1.73 >59 L code = 13702-5) eGFR If Africn Am (test code = 66 mL/min/1.73 >59 89015-9) BUN/Creatinine Ratio (test 18 12-16 code = 3097-3) Sodium (test code = 2951-2) 140 mmol/L 134-144 Potassium (test code = 2823-3) 4.4 mmol/L 3.5-5.2 Chloride (test code = 2075-0) 106 mmol/L 96-106 Carbon Dioxide, Total (test 23 mmol/L -29 code = 2027-9) Calcium (test code = 10001-7) 8.7 mg/dL 8.7-10.2 Protein, Total (test code = 5.3 g/dL 6.0-8.5 L 2885-2) Albumin (test code = 1751-7) 3.0 g/dL 4.0-5.0 L Globulin, Total (test code = 2.3 g/dL 1.5-4.5 68269-5) A/G Ratio (test code = 1759-0) 1.3 [...] (test 57 mL/min/1.73 >59 L code = 05170-7) eGFR If Africn Am (test code = 66 mL/min/1.73 >59 07807-1) BUN/Creatinine Ratio (test 18 -20 code = 3097-3) Sodium (test code = 2951-2) 140 mmol/L 134-144 Potassium (test code = 2823-3) 4.4 mmol/L 3.5-5.2 Chloride (test code = 2075-0) 106 mmol/L 96-106 Carbon Dioxide, Total (test 23 mmol/L -29 code = 2027-9) Calcium (test code = 88952-6) 8.7 mg/dL 8.7-10.2 Protein, Total (test code = 5.3 g/dL 6.0-8.5 L 2885-2) Albumin (test code = 1751-7) 3.0 g/dL 4.0-5.0 L Globulin, Total (test code = 2.3 g/dL 1.5-4.5 95213-2) A/G Ratio (test code = 1759-0) 1.3 [...] (test 57 mL/min/1.73 >59 L code = 33745-5) eGFR If Africn Am (test code = 66 mL/min/1.73 >59 85630-6) BUN/Creatinine Ratio (test 18 9-20 code = 3097-3) Sodium (test code = 2951-2) 140 mmol/L 134-144 Potassium (test code = 2823-3) 4.4 mmol/L 3.5-5.2 Chloride (test code = 2075-0) 106 mmol/L 96-106 Carbon Dioxide, Total (test 23 mmol/L 20-29 code = 8-9) Calcium (test code = 62647-6) 8.7 mg/dL 8.7-10.2 Protein, Total (test code = 5.3 g/dL 6.0-8.5 L 2885-2) Albumin (test code = 1751-7) 3.0 g/dL 4.0-5.0 L Globulin, Total (test code = 2.3 g/dL 1.5-4.5 90756-9) A/G Ratio (test code = 1759-0) 1.3 [...] (test 57 mL/min/1.73 >59 L code = 43981-0) eGFR If Africn Am (test code = 66 mL/min/1.73 >59 96038-8) BUN/Creatinine Ratio (test 18 9-20 code = 3097-3) Sodium (test code = 2951-2) 140 mmol/L 134-144 Potassium (test code = 2823-3) 4.4 mmol/L 3.5-5.2 Chloride (test code = 2075-0) 106 mmol/L 96-106 Carbon Dioxide, Total (test 23 mmol/L 20-29 code = 8-9) Calcium (test code = 84594-6) 8.7 mg/dL 8.7-10.2 Protein, Total (test code = 5.3 g/dL 6.0-8.5 L 2885-2) Albumin (test code = 1751-7) 3.0 g/dL 4.0-5.0 L Globulin, Total (test code = 2.3 g/dL 1.5-4.5 20940-5) A/G Ratio (test code = 1759-0) 1.3 1.2-2.2 Bilirubin, Total (test code = 0.5 mg/dL 0.0-1.2 1974-04) Alkaline Phosphatase (test 95 IU/L 39-117 code = 6768-6) AST (SGOT) (test code = 16 IU/L 0-40 1920-8) ALT (SGPT) (test code = 23 IU/L 0-44 1742-6) [facility] Description: Comp. Metabolic Panel (2019-07-04 01:03:00 Test Item Value Reference Range Interpretation Comments Glucose (test code = 2345-7) 262 mg/dL 65-99 H BUN (test code = 3094-0) 27 mg/dL 6-24 H Creatinine (test code = 1.46 mg/dL 0.76-1.27 H 2160-0) eGFR If NonAfricn Am (test 57 mL/min/1.73 >59 L code = 81249-2) eGFR If Africn Am (test code = 66 mL/min/1.73 >59 33747-4) BUN/Creatinine Ratio (test 18 9-20 code = 3097-3) Sodium (test code = 2951-2) 140 mmol/L 134-144 Potassium (test code = 2823-3) 4.4 mmol/L 3.5-5.2 Chloride (test code = 2075-0) 106 mmol/L 96-106 Carbon Dioxide, Total (test 23 mmol/L 20-29 code = 2028-9) Calcium (test code = 39831-1) 8.7 mg/dL 8.7-10.2 Protein, Total (test code = 5.3 g/dL 6.0-8.5 L 2885-2) Albumin (test code = 1751-7) 3.0 g/dL 4.0-5.0 L Globulin, Total (test code = 2.3 g/dL 1.5-4.5 11644-6) A/G Ratio (test code = 1759-0) 1.3 1.2-2.2 Bilirubin, Total (test code = 0.5 mg/dL 0.0-1.2 1974-04) Alkaline Phosphatase (test 95 IU/L 39-117 code = 6768-6) AST (SGOT) (test code = 16 IU/L 0-40 1920-8) ALT (SGPT) (test code = 23 IU/L 0-44 1742-6) [facility] Description: Comp. Metabolic Panel (14)2019-07-04 01:03:00 Test Item Value Reference Range Interpretation Comments Glucose (test code = 2345-7) 262 mg/dL 65-99 H BUN (test code = 3094-0) 27 mg/dL 6-24 H Creatinine (test code = 1.46 mg/dL 0.76-1.27 H 2160-0) eGFR If NonAfricn Am (test 57 mL/min/1.73 >59 L code = 21735-8) eGFR If Africn Am (test code = 66 mL/min/1.73 >59 40193-1) BUN/Creatinine Ratio (test 18 9-20 code = 3097-3) Sodium (test code = 2951-2) 140 mmol/L 134-144 Potassium (test code = 2823-3) 4.4 mmol/L 3.5-5.2 Chloride (test code = 2075-0) 106 mmol/L 96-106 Carbon Dioxide, Total (test 23 mmol/L 20-29 code = 2028-9) Calcium (test code = 97462-3) 8.7 mg/dL 8.7-10.2 Protein, Total (test code = 5.3 g/dL 6.0-8.5 L 2885-2) Albumin (test code = 1751-7) 3.0 g/dL 4.0-5.0 L Globulin, Total (test code = 2.3 g/dL 1.5-4.5 99674-8) A/G Ratio (test code = 1759-0) 1.3 1.2-2.2 Bilirubin, Total (test code = 0.5 mg/dL 0.0-1.2 1975-2) Alkaline Phosphatase (test 95 IU/L 39-117 code = 6768-6) AST (SGOT) (test code = 16 IU/L 0-40 1920-8) ALT (SGPT) (test code = 23 IU/L 0-44 1742-6) [facility] Description: Comp. Metabolic Panel (14)2019-07-04 01:03:00 Test Item Value Reference Range Interpretation Comments Glucose (test code = 2345-7) 262 mg/dL 65-99 H BUN (test code = 3094-0) 27 mg/dL 6-24 H Creatinine (test code = 1.46 mg/dL 0.76-1.27 H 2160-0) eGFR If NonAfricn Am (test 57 mL/min/1.73 >59 L code = 81661-5) eGFR If Africn Am (test code = 66 mL/min/1.73 >59 33523-9) BUN/Creatinine Ratio (test 18 9-20 code = 3097-3) Sodium (test code = 2951-2) 140 mmol/L 134-144 Potassium (test code = 2823-3) 4.4 mmol/L 3.5-5.2 Chloride (test code = 2075-0) 106 mmol/L 96-106 Carbon Dioxide, Total (test 23 mmol/L 20-29 code = 2028-9) Calcium (test code = 21037-9) 8.7 mg/dL 8.7-10.2 Protein, Total (test code = 5.3 g/dL 6.0-8.5 L 2885-2) Albumin (test code = 1751-7) 3.0 g/dL 4.0-5.0 L Globulin, Total (test code = 2.3 g/dL 1.5-4.5 17564-2) A/G Ratio (test code = 1759-0) 1.3 [...] (test 57 mL/min/1.73 >59 L code = 16546-0) eGFR If Africn Am (test code = 66 mL/min/1.73 >59 29863-7) BUN/Creatinine Ratio (test 12-16 code = 3097-3) Sodium (test code = 2951-2) 140 mmol/L 134-144 Potassium (test code = 2823-3) 4.4 mmol/L 3.5-5.2 Chloride (test code = 2075-0) 106 mmol/L 96-106 Carbon Dioxide, Total (test 23 mmol/L 20-29 code = 2028-9) Calcium (test code = 39455-2) 8.7 mg/dL 8.7-10.2 Protein, Total (test code = 5.3 g/dL 6.0-8.5 L 2885-2) Albumin (test code = 1751-7) 3.0 g/dL 4.0-5.0 L Globulin, Total (test code = 2.3 g/dL 1.5-4.5 41640-0) A/G Ratio (test code = 1759-0) 1.3 [...] (test 57 mL/min/1.73 >59 L code = 61150-4) eGFR If Africn Am (test code = 66 mL/min/1.73 >59 24850-7) BUN/Creatinine Ratio (test 12-16 code = 3097-3) Sodium (test code = 2951-2) 140 mmol/L 134-144 Potassium (test code = 2823-3) 4.4 mmol/L 3.5-5.2 Chloride (test code = 2075-0) 106 mmol/L 96-106 Carbon Dioxide, Total (test 23 mmol/L 20-29 code = 8-9) Calcium (test code = 18914-8) 8.7 mg/dL 8.7-10.2 Protein, Total (test code = 5.3 g/dL 6.0-8.5 L 2885-2) Albumin (test code = 1751-7) 3.0 g/dL 4.0-5.0 L Globulin, Total (test code = 2.3 g/dL 1.5-4.5 33738-6) A/G Ratio (test code = 1759-0) 1.3 [...] (test 57 mL/min/1.73 >59 L code = 84671-1) eGFR If Africn Am (test code = 66 mL/min/1.73 >59 67490-3) BUN/Creatinine Ratio (test 18 - code = 3097-3) Sodium (test code = 2951-2) 140 mmol/L 134-144 Potassium (test code = 2823-3) 4.4 mmol/L 3.5-5.2 Chloride (test code = 2075-0) 106 mmol/L 96-106 Carbon Dioxide, Total (test 23 mmol/L - code = 2027-9) Calcium (test code = 70776-9) 8.7 mg/dL 8.7-10.2 Protein, Total (test code = 5.3 g/dL 6.0-8.5 L 2885-2) Albumin (test code = 1751-7) 3.0 g/dL 4.0-5.0 L Globulin, Total (test code = 2.3 g/dL 1.5-4.5 11941-7) A/G Ratio (test code = 1759-0) 1.3 1.2-2.2 Bilirubin, Total (test code = 0.5 mg/dL 0.0-1.2 1975-2) Alkaline Phosphatase (test 95 IU/L 39-117 code = 6768-6) AST (SGOT) (test code = 16 IU/L 0-40 1920-8) ALT (SGPT) (test code = 23 IU/L 0-44 1742-6) [facility] Description: Comp. Metabolic Panel (14)2019-07-04 01:03:00 Test Item Value Reference Range Interpretation Comments Glucose (test code = 2345-7) 262 mg/dL 65-99 H BUN (test code = 3094-0) 27 mg/dL 6-24 H Creatinine (test code = 1.46 mg/dL 0.76-1.27 H 2160-0) eGFR If NonAfricn Am (test 57 mL/min/1.73 >59 L code = 77684-3) eGFR If Africn Am (test code = 66 mL/min/1.73 >59 17791-9) BUN/Creatinine Ratio (test 18 12-16 code = 3097-3) Sodium (test code = 2951-2) 140 mmol/L 134-144 Potassium (test code = 2823-3) 4.4 mmol/L 3.5-5.2 Chloride (test code = 2075-0) 106 mmol/L 96-106 Carbon Dioxide, Total (test 23 mmol/L -29 code = 2027-9) Calcium (test code = 17458-6) 8.7 mg/dL 8.7-10.2 Protein, Total (test code = 5.3 g/dL 6.0-8.5 L 2885-2) Albumin (test code = 1751-7) 3.0 g/dL 4.0-5.0 L Globulin, Total (test code = 2.3 g/dL 1.5-4.5 26816-4) A/G Ratio (test code = 1759-0) 1.3 [...] (test 57 mL/min/1.73 >59 L code = 69021-6) eGFR If Africn Am (test code = 66 mL/min/1.73 >59 87108-6) BUN/Creatinine Ratio (test 18 9-20 code = 3097-3) Sodium (test code = 2951-2) 140 mmol/L 134-144 Potassium (test code = 2823-3) 4.4 mmol/L 3.5-5.2 Chloride (test code = 2075-0) 106 mmol/L 96-106 Carbon Dioxide, Total (test 23 mmol/L 20-29 code = 2028-9) Calcium (test code = 77832-1) 8.7 mg/dL 8.7-10.2 Protein, Total (test code = 5.3 g/dL 6.0-8.5 L 2885-2) Albumin (test code = 1751-7) 3.0 g/dL 4.0-5.0 L Globulin, Total (test code = 2.3 g/dL 1.5-4.5 86432-0) A/G Ratio (test code = 1759-0) 1.3 1.2-2.2 Bilirubin, Total (test code = 0.5 mg/dL 0.0-1.2 1974-2) Alkaline Phosphatase (test 95 IU/L 39-117 code = 6768-6) AST (SGOT) (test code = 16 IU/L 0-40 1920-8) ALT (SGPT) (test code = 23 IU/L 0-44 1742-6) [facility] Description: Comp. Metabolic Panel (142019-07-04 01:03:00 Test Item Value Reference Range Interpretation Comments Glucose (test code = 2345-7) 262 mg/dL 65-99 H BUN (test code = 3094-0) 27 mg/dL 6-24 H Creatinine (test code = 1.46 mg/dL 0.76-1.27 H 2160-0) eGFR If NonAfricn Am (test 57 mL/min/1.73 >59 L code = 50681-6) eGFR If Africn Am (test code = 66 mL/min/1.73 >59 94134-0) BUN/Creatinine Ratio (test 18 9-20 code = 3097-3) Sodium (test code = 2951-2) 140 mmol/L 134-144 Potassium (test code = 2823-3) 4.4 mmol/L 3.5-5.2 Chloride (test code = 2075-0) 106 mmol/L 96-106 Carbon Dioxide, Total (test 23 mmol/L 20-29 code = 2028-9) Calcium (test code = 35009-3) 8.7 mg/dL 8.7-10.2 Protein, Total (test code = 5.3 g/dL 6.0-8.5 L 2885-2) Albumin (test code = 1751-7) 3.0 g/dL 4.0-5.0 L Globulin, Total (test code = 2.3 g/dL 1.5-4.5 53006-6) A/G Ratio (test code = 1759-0) 1.3 1.2-2.2 Bilirubin, Total (test code = 0.5 mg/dL 0.0-1.2 1974-2) Alkaline Phosphatase (test 95 IU/L 39-117 code = 6768-6) AST (SGOT) (test code = 16 IU/L 0-40 1920-8) ALT (SGPT) (test code = 23 IU/L 0-44 1742-6) [facility] Description: Comp. Metabolic Panel (14)2019-07-04 01:03:00 Test Item Value Reference Range Interpretation Comments Glucose (test code = 2345-7) 262 mg/dL 65-99 H BUN (test code = 3094-0) 27 mg/dL 6-24 H Creatinine (test code = 1.46 mg/dL 0.76-1.27 H 2160-0) eGFR If NonAfricn Am (test 57 mL/min/1.73 >59 L code = 79915-5) eGFR If Africn Am (test code = 66 mL/min/1.73 >59 25322-0) BUN/Creatinine Ratio (test 18 9-20 code = 3097-3) Sodium (test code = 2951-2) 140 mmol/L 134-144 Potassium (test code = 2823-3) 4.4 mmol/L 3.5-5.2 Chloride (test code = 2075-0) 106 mmol/L 96-106 Carbon Dioxide, Total (test 23 mmol/L 20-29 code = 8-9) Calcium (test code = 51855-8) 8.7 mg/dL 8.7-10.2 Protein, Total (test code = 5.3 g/dL 6.0-8.5 L 2885-2) Albumin (test code = 1751-7) 3.0 g/dL 4.0-5.0 L Globulin, Total (test code = 2.3 g/dL 1.5-4.5 18471-3) A/G Ratio (test code = 1759-0) 1.3 1.2-2.2 Bilirubin, Total (test code = 0.5 mg/dL 0.0-1.2 1975-2) Alkaline Phosphatase (test 95 IU/L 39-117 code = 6768-6) AST (SGOT) (test code = 16 IU/L 0-40 1920-8) ALT (SGPT) (test code = 23 IU/L 0-44 1742-6) [facility] Description: Comp. Metabolic Panel (14)2019-07-04 01:03:00 Test Item Value Reference Range Interpretation Comments Glucose (test code = 2345-7) 262 mg/dL 65-99 H BUN (test code = 3094-0) 27 mg/dL 6-24 H Creatinine (test code = 1.46 mg/dL 0.76-1.27 H 2160-0) eGFR If NonAfricn Am (test 57 mL/min/1.73 >59 L code = 24670-8) eGFR If Africn Am (test code = 66 mL/min/1.73 >59 84818-1) BUN/Creatinine Ratio (test 18 9-20 code = 3097-3) Sodium (test code = 2951-2) 140 mmol/L 134-144 Potassium (test code = 2823-3) 4.4 mmol/L 3.5-5.2 Chloride (test code = 2075-0) 106 mmol/L 96-106 Carbon Dioxide, Total (test 23 mmol/L 20-29 code = 2028-9) Calcium (test code = 81507-2) 8.7 mg/dL 8.7-10.2 Protein, Total (test code = 5.3 g/dL 6.0-8.5 L 2885-2) Albumin (test code = 1751-7) 3.0 g/dL 4.0-5.0 L Globulin, Total (test code = 2.3 g/dL 1.5-4.5 13100-8) A/G Ratio (test code = 1759-0) 1.3 [...] (test 57 mL/min/1.73 >59 L code = 25352-2) eGFR If Africn Am (test code = 66 mL/min/1.73 >59 09119-6) BUN/Creatinine Ratio (test 18 9-20 code = 3097-3) Sodium (test code = 2951-2) 140 mmol/L 134-144 Potassium (test code = 2823-3) 4.4 mmol/L 3.5-5.2 Chloride (test code = 2075-0) 106 mmol/L 96-106 Carbon Dioxide, Total (test 23 mmol/L 20-29 code = 2028-9) Calcium (test code = 38336-0) 8.7 mg/dL 8.7-10.2 Protein, Total (test code = 5.3 g/dL 6.0-8.5 L 2885-2) Albumin (test code = 1751-7) 3.0 g/dL 4.0-5.0 L Globulin, Total (test code = 2.3 g/dL 1.5-4.5 40776-5) A/G Ratio (test code = 1759-0) 1.3 [...] (test 57 mL/min/1.73 >59 L code = 84886-1) eGFR If Africn Am (test code = 66 mL/min/1.73 >59 89141-6) BUN/Creatinine Ratio (test 18 12-16 code = 3097-3) Sodium (test code = 2951-2) 140 mmol/L 134-144 Potassium (test code = 2823-3) 4.4 mmol/L 3.5-5.2 Chloride (test code = 2075-0) 106 mmol/L 96-106 Carbon Dioxide, Total (test 23 mmol/L 20-29 code = 2028-9) Calcium (test code = 65749-1) 8.7 mg/dL 8.7-10.2 Protein, Total (test code = 5.3 g/dL 6.0-8.5 L 2885-2) Albumin (test code = 1751-7) 3.0 g/dL 4.0-5.0 L Globulin, Total (test code = 2.3 g/dL 1.5-4.5 45489-7) A/G Ratio (test code = 1759-0) 1.3 [...] (test 57 mL/min/1.73 >59 L code = 45300-8) eGFR If Africn Am (test code = 66 mL/min/1.73 >59 64027-3) BUN/Creatinine Ratio (test 18 12-16 code = 3097-3) Sodium (test code = 2951-2) 140 mmol/L 134-144 Potassium (test code = 2823-3) 4.4 mmol/L 3.5-5.2 Chloride (test code = 2075-0) 106 mmol/L 96-106 Carbon Dioxide, Total (test 23 mmol/L -29 code = 2027-9) Calcium (test code = 78731-1) 8.7 mg/dL 8.7-10.2 Protein, Total (test code = 5.3 g/dL 6.0-8.5 L 2885-2) Albumin (test code = 1751-7) 3.0 g/dL 4.0-5.0 L Globulin, Total (test code = 2.3 g/dL 1.5-4.5 19779-8) A/G Ratio (test code = 1759-0) 1.3 [...] (test 57 mL/min/1.73 >59 L code = 36670-4) eGFR If Africn Am (test code = 66 mL/min/1.73 >59 46505-0) BUN/Creatinine Ratio (test 18 -20 code = 3097-3) Sodium (test code = 2951-2) 140 mmol/L 134-144 Potassium (test code = 2823-3) 4.4 mmol/L 3.5-5.2 Chloride (test code = 2075-0) 106 mmol/L 96-106 Carbon Dioxide, Total (test 23 mmol/L -29 code = 2027-9) Calcium (test code = 66024-1) 8.7 mg/dL 8.7-10.2 Protein, Total (test code = 5.3 g/dL 6.0-8.5 L 2885-2) Albumin (test code = 1751-7) 3.0 g/dL 4.0-5.0 L Globulin, Total (test code = 2.3 g/dL 1.5-4.5 84356-4) A/G Ratio (test code = 1759-0) 1.3 [...] (test 57 mL/min/1.73 >59 L code = 35137-0) eGFR If Africn Am (test code = 66 mL/min/1.73 >59 39426-3) BUN/Creatinine Ratio (test 18 9-20 code = 3097-3) Sodium (test code = 2951-2) 140 mmol/L 134-144 Potassium (test code = 2823-3) 4.4 mmol/L 3.5-5.2 Chloride (test code = 2075-0) 106 mmol/L 96-106 Carbon Dioxide, Total (test 23 mmol/L 20-29 code = 8-9) Calcium (test code = 09819-1) 8.7 mg/dL 8.7-10.2 Protein, Total (test code = 5.3 g/dL 6.0-8.5 L 2885-2) Albumin (test code = 1751-7) 3.0 g/dL 4.0-5.0 L Globulin, Total (test code = 2.3 g/dL 1.5-4.5 21059-8) A/G Ratio (test code = 1759-0) 1.3 1.2-2.2 Bilirubin, Total (test code = 0.5 mg/dL 0.0-1.2 1974-2) Alkaline Phosphatase (test 95 IU/L 39-117 code = 6768-6) AST (SGOT) (test code = 16 IU/L 0-40 1920-8) ALT (SGPT) (test code = 23 IU/L 0-44 1742-6) [facility] Description: Comp. Metabolic Panel ()2019-07-04 01:03:00 Test Item Value Reference Range Interpretation Comments Glucose (test code = 2345-7) 262 mg/dL 65-99 H BUN (test code = 3094-0) 27 mg/dL 6-24 H Creatinine (test code = 1.46 mg/dL 0.76-1.27 H 2160-0) eGFR If NonAfricn Am (test 57 mL/min/1.73 >59 L code = 94888-1) eGFR If Africn Am (test code = 66 mL/min/1.73 >59 09276-5) BUN/Creatinine Ratio (test 18 9-20 code = 3097-3) Sodium (test code = 2951-2) 140 mmol/L 134-144 Potassium (test code = 2823-3) 4.4 mmol/L 3.5-5.2 Chloride (test code = 2075-0) 106 mmol/L 96-106 Carbon Dioxide, Total (test 23 mmol/L 20-29 code = 2028-9) Calcium (test code = 76396-8) 8.7 mg/dL 8.7-10.2 Protein, Total (test code = 5.3 g/dL 6.0-8.5 L 2885-2) Albumin (test code = 1751-7) 3.0 g/dL 4.0-5.0 L Globulin, Total (test code = 2.3 g/dL 1.5-4.5 40696-2) A/G Ratio (test code = 1759-0) 1.3 [...] A1c (test code 9.9 % 4.8-5.6 H . Prediabetes: 5.7 - = 4548-4) 6.4 Diabetes: > 6.4 Glycemic contro l for adults with mary ann betes: <7.0

P erformed by:
[facility] ([place])

[facility] Description: Hemoglobin A1c/Hemoglobin.total in Blood 2019-04-05 09:29:00 Test Item Value Reference Range Interpretation Comments Hemoglobin A1c (test code 9.9 % 4.8-5.6 H . Prediabetes: 5.7 - = 4548-4) 6.4 Diabetes: > 6.4 Glycemic contro l for adults with mary ann betes: <7.0

P erformed by:
[facility] ()

[facility] Description: Hemoglobin A1c/Hemoglobin.total in Blood 2019-04-05 09:29:00 Test Item Value Reference Range Interpretation Comments Hemoglobin A1c (test code 9.9 % 4.8-5.6 H . Prediabetes: 5.7 - = 4548-4) 6.4 Diabetes: >6.4 Glycemic contro l for adults with mary ann betes: <7.0

P erformed by:
[facility] ([place])

[facility] Description: Hemoglobin A1c/Hemoglobin.total in Blood 2019-04-05 09:29:00 Test Item Value Reference Range Interpretation Comments Hemoglobin A1c (test code 9.9 % 4.8-5.6 H . Prediabetes: 5.7 - = 4548-4) 6.4 Diabetes: >6.4 Glycemic contro l for adults with mary ann betes: <7.0

P erformed by:
[facility] ([place])

[facility] Description: Hemoglobin A1c/Hemoglobin.total in Blood 2019-04-05 09:29:00 Test Item Value Reference Range Interpretation Comments Hemoglobin A1c (test code 9.9 % 4.8-5.6 H . Prediabetes: 5.7 - = 4548-4) 6.4 Diabetes: > 6.4 Glycemic contro l for adults with mary ann betes: <7.0

P erformed by:
[facility] [place] ([place])

[facility] Description: Hemoglobin A1c/Hemoglobin.total in Blood 2019-04-05 09:29:00 Test Item Value Reference Range Interpretation Comments Hemoglobin A1c (test code 9.9 % 4.8-5.6 H . Prediabetes: 5.7 - = 4548-4) 6.4 Diabetes: > 6.4 Glycemic contro l for adults with mary ann betes: <7.0

P erformed by:
[facility] [place] ([place])

[facility] Description: Hemoglobin A1c/Hemoglobin.total in Blood 2019-04-05 09:29:00 Test Item Value Reference Range Interpretation Comments Hemoglobin A1c (test code 9.9 % 4.8-5.6 H . Prediabetes: 5.7 - = 4548-4) 6.4 Diabetes: > 6.4 Glycemic contro l for adults with mary ann betes: <7.0

P erformed by:
[facility] [place] ([place])

[facility] Description: Hemoglobin A1c/Hemoglobin.total in Blood 2019-04-05 09:29:00 Test Item Value Reference Range Interpretation Comments Hemoglobin A1c (test code 9.9 % 4.8-5.6 H . Prediabetes: 5.7 - = 4548-4) 6.4 Diabetes: > 6.4 Glycemic contro l for adults with mary ann betes: <7.0

P erformed by:
[facility] ()

[facility] Description: Hemoglobin A1c/Hemoglobin.total in Blood 2019-04-05 09:29:00 Test Item Value Reference Range Interpretation Comments Hemoglobin A1c (test code 9.9 % 4.8-5.6 H . Prediabetes: 5.7 - = 4548-4) 6.4 Diabetes: > 6.4 Glycemic contro l for adults with mary ann betes: <7.0

P erformed by:
[facility] [place] ()

[facility] Description: Hemoglobin A1c/Hemoglobin.total in Blood 2019-04-05 09:29:00 Test Item Value Reference Range Interpretation Comments Hemoglobin A1c (test code 9.9 % 4.8-5.6 H . Prediabetes: 5.7 - = 4548-4) 6.4 Diabetes: > 6.4 Glycemic contro l for adults with mary ann betes: <7.0

P erformed by:
[facility] [place] ()

[facility] Description: Hemoglobin A1c/Hemoglobin.total in Blood 2019-04-05 09:29:00 Test Item Value Reference Range Interpretation Comments Hemoglobin A1c (test code 9.9 % 4.8-5.6 H . Prediabetes: 5.7 - = 4548-4) 6.4 Diabetes: > 6.4 Glycemic contro l for adults with mary ann betes: <7.0

P erformed by:
[facility] [place] ()

[facility] Description: Hemoglobin A1c/Hemoglobin.total in Blood 2019-04-05 09:29:00 Test Item Value Reference Range Interpretation Comments Hemoglobin A1c (test code 9.9 % 4.8-5.6 H . Prediabetes: 5.7 - = 4548-4) 6.4 Diabetes: > 6.4 Glycemic contro l for adults with mary ann betes: <7.0

P erformed by:
[facility] [place] ()

[facility] Description: Hemoglobin A1c/Hemoglobin.total in Blood 2019-04-05 09:29:00 Test Item Value Reference Range Interpretation Comments Hemoglobin A1c (test code 9.9 % 4.8-5.6 H . Prediabetes: 5.7 - = 4548-4) 6.4 Diabetes: > 6.4 Glycemic contro l for adults with mary ann betes: <7.0

P erformed by:
[facility] ([place])

[facility] Description: Hemoglobin A1c/Hemoglobin.total in Blood 2019-04-05 09:29:00 Test Item Value Reference Range Interpretation Comments Hemoglobin A1c (test code 9.9 % 4.8-5.6 H . Prediabetes: 5.7 - = 4548-4) 6.4 Diabetes: > 6.4 Glycemic contro l for adults with mary ann betes: <7.0

P erformed by:
[facility] ([place])

[facility] Description: Hemoglobin A1c/Hemoglobin.total in Blood 2019-04-05 09:29:00 Test Item Value Reference Range Interpretation Comments Hemoglobin A1c (test code 9.9 % 4.8-5.6 H . Prediabetes: 5.7 - = 4548-4) 6.4 Diabetes: > 6.4 Glycemic contro l for adults with mary ann betes: <7.0

P erformed by:
[facility] ([place])

[facility] Description: Hemoglobin A1c/Hemoglobin.total in Blood 2019-04-05 09:29:00 Test Item Value Reference Range Interpretation Comments Hemoglobin A1c (test code 9.9 % 4.8-5.6 H . Prediabetes: 5.7 - = 4548-4) 6.4 Diabetes: > 6.4 Glycemic contro l for adults with mary ann betes: <7.0

P erformed by:
[facility] ([place])

[facility] Description: Hemoglobin A1c/Hemoglobin.total in Blood 2019-04-05 09:29:00 Test Item Value Reference Range Interpretation Comments Hemoglobin A1c (test code 9.9 % 4.8-5.6 H . Prediabetes: 5.7 - = 4548-4) 6.4 Diabetes: > 6.4 Glycemic contro l for adults with mary ann betes: <7.0

P erformed by:
[facility] [place] ()

[facility] Description: Hemoglobin A1c/Hemoglobin.total in Blood 2019-04-05 09:29:00 Test Item Value Reference Range Interpretation Comments Hemoglobin A1c (test code 9.9 % 4.8-5.6 H . Prediabetes: 5.7 - = 4548-4) 6.4 Diabetes: > 6.4 Glycemic contro l for adults with mary ann betes: <7.0

P erformed by:
[facility] [place] ()

[facility] Description: Hemoglobin A1c/Hemoglobin.total in Blood 2019-04-05 09:29:00 Test Item Value Reference Range Interpretation Comments Hemoglobin A1c (test code 9.9 % 4.8-5.6 H . Prediabetes: 5.7 - = 4548-4) 6.4 Diabetes: > 6.4 Glycemic contro l for adults with mary ann betes: <7.0

P erformed by:
[facility] [place] ()

[facility] Description: Hemoglobin A1c/Hemoglobin.total in Blood 2019-04-05 09:29:00 Test Item Value Reference Range Interpretation Comments Hemoglobin A1c (test code 9.9 % 4.8-5.6 H . Prediabetes: 5.7 - = 4548-4) 6.4 Diabetes: > 6.4 Glycemic contro l for adults with mary ann betes: <7.0

P erformed by:
[facility] [place] ()

[facility] Description: Hemoglobin A1c/Hemoglobin.total in Blood 2019-04-05 09:29:00 Test Item Value Reference Range Interpretation Comments Hemoglobin A1c (test code 9.9 % 4.8-5.6 H . Prediabetes: 5.7 - = 4548-4) 6.4 Diabetes: > 6.4 Glycemic contro l for adults with mary ann betes: <7.0

P erformed by:
[facility] [place] ([place])

[facility] Description: Hemoglobin A1c/Hemoglobin.total in Blood 2019-04-05 09:29:00 Test Item Value Reference Range Interpretation Comments Hemoglobin A1c (test code 9.9 % 4.8-5.6 H . Prediabetes: 5.7 - = 4548-4) 6.4 Diabetes: > 6.4 Glycemic contro l for adults with mary ann betes: <7.0

P erformed by:
[facility] [place] ([place])

[facility] Description: Hemoglobin A1c/Hemoglobin.total in Blood 2019-04-05 09:29:00 Test Item Value Reference Range Interpretation Comments Hemoglobin A1c (test code 9.9 % 4.8-5.6 H . Prediabetes: 5.7 - = 4548-4) 6.4 Diabetes: > 6.4 Glycemic contro l for adults with mary ann betes: <7.0

P erformed by:
[facility] [place] ()

[facility] Description: Hemoglobin A1c/Hemoglobin.total in Blood 2019-04-05 09:29:00 Test Item Value Reference Range Interpretation Comments Hemoglobin A1c (test code 9.9 % 4.8-5.6 H . Prediabetes: 5.7 - = 4548-4) 6.4 Diabetes: > 6.4 Glycemic contro l for adults with mary ann betes: <7.0

P erformed by:
[facility] [place] ([place])

[facility] Description: Hemoglobin A1c/Hemoglobin.total in Blood 2019-04-05 09:29:00 Test Item Value Reference Range Interpretation Comments Hemoglobin A1c (test code 9.9 % 4.8-5.6 H . Prediabetes: 5.7 - = 4548-4) 6.4 Diabetes: > 6.4 Glycemic contro l for adults with mary ann betes: <7.0

P erformed by:
[facility] [place] ()

[facility] Description: Hemoglobin A1c/Hemoglobin.total in Blood 2019-04-05 09:29:00 Test Item Value Reference Range Interpretation Comments Hemoglobin A1c (test code 9.9 % 4.8-5.6 H . Prediabetes: 5.7 - = 4548-4) 6.4 Diabetes: > 6.4 Glycemic contro l for adults with mary ann betes: <7.0

P erformed by:
[facility] [place] ()

[facility] Description: Hemoglobin A1c/Hemoglobin.total in Blood 2019-04-05 09:29:00 Test Item Value Reference Range Interpretation Comments Hemoglobin A1c (test code 9.9 % 4.8-5.6 H . Prediabetes: 5.7 - = 4548-4) 6.4 Diabetes: > 6.4 Glycemic contro l for adults with mary ann betes: <7.0

P erformed by:
[facility] [place] ()

[facility] Description: Hemoglobin A1c/Hemoglobin.total in Blood 2019-04-05 09:29:00 Test Item Value Reference Range Interpretation Comments Hemoglobin A1c (test code 9.9 % 4.8-5.6 H . Prediabetes: 5.7 - = 4548-4) 6.4 Diabetes: > 6.4 Glycemic contro l for adults with mary ann betes: <7.0

P erformed by:
[facility] [place] ()

[facility] Description: Hemoglobin A1c/Hemoglobin.total in Blood 2019-04-05 09:29:00 Test Item Value Reference Range Interpretation Comments Hemoglobin A1c (test code 9.9 % 4.8-5.6 H . Prediabetes: 5.7 - = 4548-4) 6.4 Diabetes: > 6.4 Glycemic contro l for adults with mary ann betes: <7.0

P erformed by:
[facility] [place] ()

[facility] Description: Lipid [id number] 02:47:00 Test Item Value Reference Range Interpretation Comments Cholesterol, Total (test code = 392 mg/dL 100-199 H 2093-3) Triglycerides (test code = 2571-8) 159 mg/dL 0-149 H HDL Cholesterol (test code = 42 mg/dL >39 2085-9) VLDL Cholesterol Renuka (test code = 32 mg/dL 5-40 98402-6) LDL Cholesterol Calc (test code = 318 mg/dL 0-99 H 55888-3) Comment: (test code = 03843-8) [employer] Description: Lipid [id number] 02:47:00 Test Item Value Reference Range Interpretation Comments Cholesterol, Total (test code = 392 mg/dL 100-199 H 2093-3) Triglycerides (test code = 2571-8) 159 mg/dL 0-149 H HDL Cholesterol (test code = 42 mg/dL >39 2085-9) VLDL Cholesterol Renuka (test code = 32 mg/dL 5-40 07222-2) LDL Cholesterol Calc (test code = 318 mg/dL 0-99 H 96470-7) Comment: (test code = 10285-0) [employer] Description: Lipid [id number] 02:47:00 Test Item Value Reference Range Interpretation Comments Cholesterol, Total (test code = 392 mg/dL 100-199 H 2093-3) Triglycerides (test code = 2571-8) 159 mg/dL 0-149 H HDL Cholesterol (test code = 42 mg/dL >39 2085-9) VLDL Cholesterol Renuka (test code = 32 mg/dL 5-40 80009-1) LDL Cholesterol Calc (test code = 318 mg/dL 0-99 H 83433-0) Comment: (test code = 12878-2) [employer] Description: Lipid [id number] 02:47:00 Test Item Value Reference Range Interpretation Comments Cholesterol, Total (test code = 392 mg/dL 100-199 H 2093-3) Triglycerides (test code = 2571-8) 159 mg/dL 0-149 H HDL Cholesterol (test code = 42 mg/dL >39 2085-9) VLDL Cholesterol Renuka (test code = 32 mg/dL 5-40 79503-2) LDL Cholesterol Calc (test code = 318 mg/dL 0-99 H 93548-6) Comment: (test code = 90091-3) [email or web address] Description: Lipid [id number] 02:47:00 Test Item Value Reference Range Interpretation Comments Cholesterol, Total (test code = 392 mg/dL 100-199 H 2093-3) Triglycerides (test code = 2571-8) 159 mg/dL 0-149 H HDL Cholesterol (test code = 42 mg/dL >39 2085-9) VLDL Cholesterol Renuka (test code = 32 mg/dL 5-40 94741-3) LDL Cholesterol Calc (test code = 318 mg/dL 0-99 H 49760-4) Comment: (test code = 75309-3) [employer] Description: Lipid [id number] 02:47:00 Test Item Value Reference Range Interpretation Comments Cholesterol, Total (test code = 392 mg/dL 100-199 H 2093-3) Triglycerides (test code = 2571-8) 159 mg/dL 0-149 H HDL Cholesterol (test code = 42 mg/dL >39 2085-9) VLDL Cholesterol Renuka (test code = 32 mg/dL 5-40 73195-2) LDL Cholesterol Calc (test code = 318 mg/dL 0-99 H 32110-2) Comment: (test code = 74821-2) [employer] Description: Lipid [id number] 02:47:00 Test Item Value Reference Range Interpretation Comments Cholesterol, Total (test code = 392 mg/dL 100-199 H 2093-3) Triglycerides (test code = 2571-8) 159 mg/dL 0-149 H HDL Cholesterol (test code = 42 mg/dL >39 2085-9) VLDL Cholesterol Renuka (test code = 32 mg/dL 5-40 95495-1) LDL Cholesterol Calc (test code = 318 mg/dL 0-99 H 05597-7) Comment: (test code = 43494-6) [employer] Description: Lipid [id number] 02:47:00 Test Item Value Reference Range Interpretation Comments Cholesterol, Total (test code = 392 mg/dL 100-199 H 2093-3) Triglycerides (test code = 2571-8) 159 mg/dL 0-149 H HDL Cholesterol (test code = 42 mg/dL >39 2085-9) VLDL Cholesterol Renuka (test code = 32 mg/dL 5-40 28345-6) LDL Cholesterol Calc (test code = 318 mg/dL 0-99 H 89695-1) Comment: (test code = 38657-3) [employer] Description: Lipid [id number] 02:47:00 Test Item Value Reference Range Interpretation Comments Cholesterol, Total (test code = 392 mg/dL 100-199 H 2093-3) Triglycerides (test code = 2571-8) 159 mg/dL 0-149 H HDL Cholesterol (test code = 42 mg/dL >39 2085-9) VLDL Cholesterol Renuka (test code = 32 mg/dL 5-40 55827-6) LDL Cholesterol Calc (test code = 318 mg/dL 0-99 H 63649-9) Comment: (test code = 35498-6) [employer] Description: Lipid [id number] 02:47:00 Test Item Value Reference Range Interpretation Comments Cholesterol, Total (test code = 392 mg/dL 100-199 H 2093-3) Triglycerides (test code = 2571-8) 159 mg/dL 0-149 H HDL Cholesterol (test code = 42 mg/dL >39 2085-9) VLDL Cholesterol Renuka (test code = 32 mg/dL 5-40 63766-5) LDL Cholesterol Calc (test code = 318 mg/dL 0-99 H 15083-0) Comment: (test code = 12591-8) [employer] Description: Lipid [id number] 02:47:00 Test Item Value Reference Range Interpretation Comments Cholesterol, Total (test code = 392 mg/dL 100-199 H 2093-3) Triglycerides (test code = 2571-8) 159 mg/dL 0-149 H HDL Cholesterol (test code = 42 mg/dL >39 2085-9) VLDL Cholesterol Renuka (test code = 32 mg/dL 5-40 55501-6) LDL Cholesterol Calc (test code = 318 mg/dL 0-99 H 97546-0) Comment: (test code = 82092-2) [employer] Description: Lipid [id number] 02:47:00 Test Item Value Reference Range Interpretation Comments Cholesterol, Total (test code = 392 mg/dL 100-199 H 2093-3) Triglycerides (test code = 2571-8) 159 mg/dL 0-149 H HDL Cholesterol (test code = 42 mg/dL >39 2085-9) VLDL Cholesterol Renuka (test code = 32 mg/dL 5-40 88155-5) LDL Cholesterol Calc (test code = 318 mg/dL 0-99 H 38573-3) Comment: (test code = 44851-6) [employer] Description: Lipid [id number] 02:47:00 Test Item Value Reference Range Interpretation Comments Cholesterol, Total (test code = 392 mg/dL 100-199 H 2093-3) Triglycerides (test code = 2571-8) 159 mg/dL 0-149 H HDL Cholesterol (test code = 42 mg/dL >39 2085-9) VLDL Cholesterol Renuka (test code = 32 mg/dL 5-40 46745-2) LDL Cholesterol Calc (test code = 318 mg/dL 0-99 H 55264-6) Comment: (test code = 90766-5) [employer] Description: Lipid [id number] 02:47:00 Test Item Value Reference Range Interpretation Comments Cholesterol, Total (test code = 392 mg/dL 100-199 H 2093-3) Triglycerides (test code = 2571-8) 159 mg/dL 0-149 H HDL Cholesterol (test code = 42 mg/dL >39 2085-9) VLDL Cholesterol Renuka (test code = 32 mg/dL 5-40 06157-6) LDL Cholesterol Calc (test code = 318 mg/dL 0-99 H 13718-9) Comment: (test code = 45739-6) [employer] Description: Lipid [id number] 02:47:00 Test Item Value Reference Range Interpretation Comments Cholesterol, Total (test code = 392 mg/dL 100-199 H 2093-3) Triglycerides (test code = 2571-8) 159 mg/dL 0-149 H HDL Cholesterol (test code = 42 mg/dL >39 2085-9) VLDL Cholesterol Renuka (test code = 32 mg/dL 5-40 37740-4) LDL Cholesterol Calc (test code = 318 mg/dL 0-99 H 90499-3) Comment: (test code = 07504-3) [employer] Description: Lipid [id number] 02:47:00 Test Item Value Reference Range Interpretation Comments Cholesterol, Total (test code = 392 mg/dL 100-199 H 2093-3) Triglycerides (test code = 2571-8) 159 mg/dL 0-149 H HDL Cholesterol (test code = 42 mg/dL >39 2085-9) VLDL Cholesterol Renuka (test code = 32 mg/dL 5-40 71608-0) LDL Cholesterol Calc (test code = 318 mg/dL 0-99 H 81626-0) Comment: (test code = 85662-3) [email or web address] Description: Lipid [id number] 02:47:00 Test Item Value Reference Range Interpretation Comments Cholesterol, Total (test code = 392 mg/dL 100-199 H 2093-3) Triglycerides (test code = 2571-8) 159 mg/dL 0-149 H HDL Cholesterol (test code = 42 mg/dL >39 2085-9) VLDL Cholesterol Renuka (test code = 32 mg/dL 5-40 88980-5) LDL Cholesterol Calc (test code = 318 mg/dL 0-99 H 17165-4) Comment: (test code = 09243-2) [employer] Description: Lipid [id number] 02:47:00 Test Item Value Reference Range Interpretation Comments Cholesterol, Total (test code = 392 mg/dL 100-199 H 2093-3) Triglycerides (test code = 2571-8) 159 mg/dL 0-149 H HDL Cholesterol (test code = 42 mg/dL >39 2085-9) VLDL Cholesterol Renuka (test code = 32 mg/dL 5-40 02303-2) LDL Cholesterol Calc (test code = 318 mg/dL 0-99 H 82049-1) Comment: (test code = 97119-3) [employer] Description: Lipid [id number] 02:47:00 Test Item Value Reference Range Interpretation Comments Cholesterol, Total (test code = 392 mg/dL 100-199 H 2093-3) Triglycerides (test code = 2571-8) 159 mg/dL 0-149 H HDL Cholesterol (test code = 42 mg/dL >39 2085-9) VLDL Cholesterol Renuka (test code = 32 mg/dL 5-40 56896-5) LDL Cholesterol Calc (test code = 318 mg/dL 0-99 H 89410-4) Comment: (test code = 68899-0) [employer] Description: Lipid [id number] 02:47:00 Test Item Value Reference Range Interpretation Comments Cholesterol, Total (test code = 392 mg/dL 100-199 H 2093-3) Triglycerides (test code = 2571-8) 159 mg/dL 0-149 H HDL Cholesterol (test code = 42 mg/dL >39 2085-9) VLDL Cholesterol Renuka (test code = 32 mg/dL 5-40 52618-5) LDL Cholesterol Calc (test code = 318 mg/dL 0-99 H 38305-3) Comment: (test code = 84937-6) [employer] Description: Lipid [id number] 02:47:00 Test Item Value Reference Range Interpretation Comments Cholesterol, Total (test code = 392 mg/dL 100-199 H 2093-3) Triglycerides (test code = 2571-8) 159 mg/dL 0-149 H HDL Cholesterol (test code = 42 mg/dL >39 2085-9) VLDL Cholesterol Renuka (test code = 32 mg/dL 5-40 73787-8) LDL Cholesterol Calc (test code = 318 mg/dL 0-99 H 17296-5) Comment: (test code = 88648-3) [employer] Description: Lipid [id number] 02:47:00 Test Item Value Reference Range Interpretation Comments Cholesterol, Total (test code = 392 mg/dL 100-199 H 2093-3) Triglycerides (test code = 2571-8) 159 mg/dL 0-149 H HDL Cholesterol (test code = 42 mg/dL >39 2085-9) VLDL Cholesterol Renuka (test code = 32 mg/dL 5-40 67456-3) LDL Cholesterol Calc (test code = 318 mg/dL 0-99 H 97951-0) Comment: (test code = 86521-9) [employer] Description: Lipid [id number] 02:47:00 Test Item Value Reference Range Interpretation Comments Cholesterol, Total (test code = 392 mg/dL 100-199 H 2093-3) Triglycerides (test code = 2571-8) 159 mg/dL 0-149 H HDL Cholesterol (test code = 42 mg/dL >39 2085-9) VLDL Cholesterol Renuka (test code = 32 mg/dL 5-40 95741-8) LDL Cholesterol Calc (test code = 318 mg/dL 0-99 H 26387-7) Comment: (test code = 82852-0) [employer] Description: Lipid [id number] 02:47:00 Test Item Value Reference Range Interpretation Comments Cholesterol, Total (test code = 392 mg/dL 100-199 H 2093-3) Triglycerides (test code = 2571-8) 159 mg/dL 0-149 H HDL Cholesterol (test code = 42 mg/dL >39 2085-9) VLDL Cholesterol Renuka (test code = 32 mg/dL 5-40 12684-2) LDL Cholesterol Calc (test code = 318 mg/dL 0-99 H 14050-2) Comment: (test code = 76068-4) [employer] Description: Lipid [id number] 02:47:00 Test Item Value Reference Range Interpretation Comments Cholesterol, Total (test code = 392 mg/dL 100-199 H 2093-3) Triglycerides (test code = 2571-8) 159 mg/dL 0-149 H HDL Cholesterol (test code = 42 mg/dL >39 2085-9) VLDL Cholesterol Renuka (test code = 32 mg/dL 5-40 30509-8) LDL Cholesterol Calc (test code = 318 mg/dL 0-99 H 37010-4) Comment: (test code = 62181-3) [employer] Description: Lipid [id number] 02:47:00 Test Item Value Reference Range Interpretation Comments Cholesterol, Total (test code = 392 mg/dL 100-199 H 2093-3) Triglycerides (test code = 2571-8) 159 mg/dL 0-149 H HDL Cholesterol (test code = 42 mg/dL >39 2085-9) VLDL Cholesterol Renuka (test code = 32 mg/dL 5-40 92763-9) LDL Cholesterol Calc (test code = 318 mg/dL 0-99 H 86683-1) Comment: (test code = 23353-5) [employer] Description: Lipid [id number] 02:47:00 Test Item Value Reference Range Interpretation Comments Cholesterol, Total (test code = 392 mg/dL 100-199 H 2093-3) Triglycerides (test code = 2571-8) 159 mg/dL 0-149 H HDL Cholesterol (test code = 42 mg/dL >39 2085-9) VLDL Cholesterol Renuka (test code = 32 mg/dL 5-40 08522-9) LDL Cholesterol Calc (test code = 318 mg/dL 0-99 H 88319-4) Comment: (test code = 08980-2) [employer] Description: Lipid [id number] 02:47:00 Test Item Value Reference Range Interpretation Comments Cholesterol, Total (test code = 392 mg/dL 100-199 H 2093-3) Triglycerides (test code = 2571-8) 159 mg/dL 0-149 H HDL Cholesterol (test code = 42 mg/dL >39 2085-9) VLDL Cholesterol Renuka (test code = 32 mg/dL 5-40 39874-6) LDL Cholesterol Calc (test code = 318 mg/dL 0-99 H 64803-3) Comment: (test code = 07627-0) [employer] Description: Lipid [id number] 02:47:00 Test Item Value Reference Range Interpretation Comments Cholesterol, Total (test code = 392 mg/dL 100-199 H 2093-3) Triglycerides (test code = 2571-8) 159 mg/dL 0-149 H HDL Cholesterol (test code = 42 mg/dL >39 2085-9) VLDL Cholesterol Renuka (test code = 32 mg/dL 5-40 45981-0) LDL Cholesterol Calc (test code = 318 mg/dL 0-99 H 71961-5) Comment: (test code = 03146-7) [employer] Description: Comp. Metabolic Panel (14)2019-04-05 02:37:00 Test Item Value Reference Range Interpretation Comments Glucose (test code = 219 mg/dL 65-99 H 2345-7) BUN (test code = 44 mg/dL 6-24 H 3094-0) Creatinine (test code 1.51 mg/dL 0.76-1.27 H = 2160-0) eGFR If NonAfricn Am 55 mL/min/1.73 >59 L (test code = 60289-7) eGFR If Africn Am 64 mL/min/1.73 >59 (test code = 55757-3) BUN/Creatinine Ratio 29 9-20 H (test code = 3097-3) Sodium (test code = 139 mmol/L 698-188 9474-2) Potassium (test code 4.4 mmol/L 3.5-5.2 = 2823-3) Chloride (test code = 99 mmol/L 96-106 2075-0) Carbon Dioxide, Total 28 mmol/L 20-29 (test code = 2027-11) Calcium (test code = 8.9 mg/dL 8.7-10.2 72087-3) Protein, Total (test 6.1 g/dL 6.0-8.5 code = 2885-2) Albumin (test code = 3.3 g/dL 3.5-5.5 L Effe ctive 1751-7) April 17 0 Albumin reference interval will b e changing to: Ag e Male Female 0 - 7 days 3.6 - 4.9 3.6 - 4.9 8 - 30 da ys 3.4 - 4.7 3.4 - 4.7 1 - 6 month 3.7 - 4.8 3.7 - 4.8 7 months - 2 years 3.9 - 5.0 3.9 - 5.0 3 - 5 years 4.0 - 5.0 4.0 - 5.0 6 - 1 2 years 4.1 - 5.0 4.0 - 5.0 13 - 30 years 4.1 - 5.2 3.9 - 5.0 31 - 50 years 4.0 - 5.0 3.8 - 4.8 51 - 60 years 3.8 - 4.9 3.8 - 4.9 61 - 70 years 3.8 - 4.8 3.8 - 4.8 71 - 80 years 3.7 - 4.7 3.7 - 4.7 81 - 89 years 3.6 - 4.6 3.6 - 4.6 >8 9 years 3.5 - 4.6 3.5 - 4.6

Pe rfo rmed by:
[facility] (HD)

Globulin, Total (test 2.8 g/dL 1.5-4.5 code = 97815-7) A/G Ratio (test code 1.2 1.2-2.2 = [...] 55 mL/min/1.73 >59 L (test code = 25829-0) eGFR If Africn Am 64 mL/min/1.73 >59 (test code = 99611-8) BUN/Creatinine Ratio 29 9-20 H (test code = 3097-3) Sodium (test code = 139 mmol/L 487-936 9323-2) Potassium (test code 4.4 mmol/L 3.5-5.2 = 2823-3) Chloride (test code = 99 mmol/L 96-106 2075-0) Carbon Dioxide, Total 28 mmol/L 20-29 (test code = 8-9) Calcium (test code = 8.9 mg/dL 8.7-10.2 76415-3) Protein, Total (test 6.1 g/dL 6.0-8.5 code = 2885-2) Albumin (test code = 3.3 g/dL 3.5-5.5 L Effe ctive 1751-7) April 17 0 Albumin reference interval will b e changing to: Ag e Male Female 0 - 7 days 3.6 - 4.9 3.6 - 4.9 8 - 30 da ys 3.4 - 4.7 3.4 - 4.7 1 - 6 month 3.7 - 4.8 3.7 - 4.8 7 months - 2 years 3.9 - 5.0 3.9 - 5.0 3 - 5 years 4.0 - 5. 0 4.0 - 5.0 6 - 1 2 years 4.1 - 5.0 4.0 - 5.0 13 - 30 years 4.1 - 5.2 3.9 - 5.0 31 - 50 years 4.0 - 5.0 3.8 - 4.8 51 - 60 years 3.8 - 4.9 3.8 - 4.9 61 - 70 years 3.8 - 4.8 3.8 - 4.8 71 - 80 years 3.7 - 4.7 3.7 - 4.7 81 - 89 years 3.6 - 4.6 3.6 - 4.6 >89 years 3.5 - 4.6 3.5 - 4.6

Pe rfo rmed by:
[facility] [place] ([place])

Globulin, Total (test 2.8 g/dL 1.5-4.5 code = 98350-5) A/G Ratio (test code 1.2 1.2-2.2 = [...] 55 mL/min/1.73 >59 L (test code = 18090-4) eGFR If Africn Am 64 mL/min/1.73 >59 (test code = 06978-6) BUN/Creatinine Ratio 29 9-20 H (test code = 3097-3) Sodium (test code = 139 mmol/L 829-002 8131-2) Potassium (test code 4.4 mmol/L 3.5-5.2 = 2823-3) Chloride (test code = 99 mmol/L 96-106 2075-0) Carbon Dioxide, Total 28 mmol/L 20-29 (test code = 2027-) Calcium (test code = 8.9 mg/dL 8.7-10.2 55613-0) Protein, Total (test 6.1 g/dL 6.0-8.5 code = 2885-2) Albumin (test code = 3.3 g/dL 3.5-5.5 L Effe ctive 1751-7) April 17 0 Albumin reference interval will b e changing to: Ag e Male Female 0 - 7 days 3.6 - 4.9 3.6 - 4.9 8 - 30 da ys 3.4 - 4.7 3.4 - 4.7 1 - 6 month 3.7 - 4.8 3.7 - 4.8 7 months - 2 years 3.9 - 5.0 3.9 - 5.0 3 - 5 years 4.0 - 5.0 4.0 - 5.0 6 - 1 2 years 4.1 - 5.0 4.0 - 5.0 13 - 30 years 4.1 - 5.2 3.9 - 5.0 31 - 50 years 4.0 - 5.0 3.8 - 4.8 51 - 60 years 3.8 - 4.9 3.8 - 4.9 61 - 70 years 3.8 - 4.8 3.8 - 4.8 71 - 80 years 3.7 - 4.7 3.7 - 4.7 81 - 89 years 3.6 - 4.6 3.6 - 4.6 >89 years 3.5 - 4.6 3.5 - 4.6

Pe rfo rmed by:
[facility] [place] ([place])

Globulin, Total (test 2.8 g/dL 1.5-4.5 code = 30798-1) A/G Ratio (test code 1.2 1.2-2.2 = 1759-0) Bilirubin, Total 0.5 mg/dL 0.0-1.2 (test code = 1974-) Alkaline Phosphatase 100 IU/L 39-117 (test code = 6768-6) AST (SGOT) (test code 22 IU/L 0-40 = 1920-8) ALT (SGPT) (test code 27 IU/L 0-44 = 1742-6) [facility] Description: Comp. Metabolic Panel (14)2019-04-05 02:37:00 Test Item Value Reference Range Interpretation Comments Glucose (test code = 219 mg/dL 65-99 H 2345-7) BUN (test code = 44 mg/dL 6-24 H 3094-0) Creatinine (test code 1.51 mg/dL 0.76-1.27 H = 2160-0) eGFR If NonAfricn Am 55 mL/min/1.73 >59 L (test code = 35601-1) eGFR If Africn Am 64 mL/min/1.73 >59 (test code = 59563-8) BUN/Creatinine Ratio 29 9-20 H (test code = 3097-3) Sodium (test code = 139 mmol/L 539-874 1776-2) Potassium (test code 4.4 mmol/L 3.5-5.2 = 2823-3) Chloride (test code = 99 mmol/L 96-106 2075-0) Carbon Dioxide, Total 28 mmol/L 20-29 (test code = 2027-9) Calcium (test code = 8.9 mg/dL 8.7-10.2 10667-0) Protein, Total (test 6.1 g/dL 6.0-8.5 code = 2885-2) Albumin (test code = 3.3 g/dL 3.5-5.5 L Effe ctive 1751-7) April 17 0 Albumin reference interval will b e changing to: A ge Male Female 0 - 7 days 3.6 - 4.9 3.6 - 4.9 8 - 30 da ys 3.4 - 4.7 3.4 - 4.7 1 - 6 month 3.7 - 4.8 3.7 - 4.8 7 months - 2 years 3.9 - 5.0 3.9 - 5.0 3 - 5 years 4.0 - 5.0 4.0 - 5.0 6 - 1 2 years 4.1 - 5.0 4.0 - 5.0 13 - 30 years 4.1 - 5.2 3.9 - 5.0 31 - 50 years 4.0 - 5.0 3.8 - 4.8 51 - 60 years 3.8 - 4.9 3.8 - 4.9 61 - 70 years 3.8 - 4.8 3.8 - 4.8 71 - 80 years 3.7 - 4.7 3.7 - 4.7 81 - 89 years 3.6 - 4.6 3.6 - 4.6 >89 years 3.5 - 4.6 3.5 - 4.6

Pe rfo rmed by:
[facility] ([place])

Globulin, Total (test 2.8 g/dL 1.5-4.5 code = 78727-4) A/G Ratio (test code 1.2 1.2-2.2 = [...] 55 mL/min/1.73 >59 L (test code = 44402-8) eGFR If Africn Am 64 mL/min/1.73 >59 (test code = 44753-8) BUN/Creatinine Ratio 29 9-20 H (test code = 3097-3) Sodium (test code = 139 mmol/L 218-769 6489-2) Potassium (test code 4.4 mmol/L 3.5-5.2 = 2823-3) Chloride (test code = 99 mmol/L 96-106 2075-0) Carbon Dioxide, Total 28 mmol/L 20-29 (test code = 2027-9) Calcium (test code = 8.9 mg/dL 8.7-10.2 88174-0) Protein, Total (test 6.1 g/dL 6.0-8.5 code = 2885-2) Albumin (test code = 3.3 g/dL 3.5-5.5 L Effe ctive 1751-7) April 17 0 Albumin reference interval will b e changing to: A ge Male Female 0 - 7 days 3.6 - 4.9 3.6 - 4.9 8 - 30 da ys 3.4 - 4.7 3.4 - 4.7 1 - 6 vik h 3.7 - 4.8 3.7 - 4.8 7 months - 2 years 3.9 - 5.0 3.9 - 5.0 3 - 5 years 4.0 - 5.0 4.0 - 5.0 6 - 12 years 4.1 - 5.0 4.0 - 5.0 13 - 30 years 4.1 - 5.2 3.9 - 5.0 31 - 50 years 4.0 - 5.0 3.8 - 4.8 51 - 60 years 3.8 - 4.9 3.8 - 4.9 61 - 70 years 3.8 - 4.8 3.8 - 4.8 71 - 80 years 3.7 - 4.7 3.7 - 4.7 81 - 89 years 3.6 - 4.6 3.6 - 4.6 >8 9 years 3.5 - 4.6 3.5 - 4.6

Pe rfo rmed by:
[facility] [place] ([place])

Globulin, Total (test 2.8 g/dL 1.5-4.5 code = 70186-3) A/G Ratio (test code 1.2 1.2-2.2 = [...] 55 mL/min/1.73 >59 L (test code = 96656-2) eGFR If Africn Am 64 mL/min/1.73 >59 (test code = 21465-3) BUN/Creatinine Ratio 29 9-20 H (test code = 3097-3) Sodium (test code = 139 mmol/L 890-108 9746-2) Potassium (test code 4.4 mmol/L 3.5-5.2 = 2823-3) Chloride (test code = 99 mmol/L 96-106 2075-0) Carbon Dioxide, Total 28 mmol/L 20-29 (test code = 2027-9) Calcium (test code = 8.9 mg/dL 8.7-10.2 69448-5) Protein, Total (test 6.1 g/dL 6.0-8.5 code = 2885-2) Albumin (test code = 3.3 g/dL 3.5-5.5 L Effe ctive 1751-7) April 17 0 Albumin reference interval will b e changing to: Ag e Male Female 0 - 7 days 3.6 - 4.9 3.6 - 4.9 8 - 30 da ys 3.4 - 4.7 3.4 - 4.7 1 - 6 vik h 3.7 - 4.8 3.7 - 4.8 7 months - 2 years 3.9 - 5.0 3.9 - 5.0 3 - 5 years 4.0 - 5.0 4.0 - 5.0 6 - 12 years 4.1 - 5.0 4.0 - 5.0 13 - 30 years 4.1 - 5.2 3.9 - 5.0 31 - 50 years 4.0 - 5.0 3.8 - 4.8 51 - 60 years 3.8 - 4.9 3.8 - 4.9 61 - 70 years 3.8 - 4.8 3.8 - 4.8 71 - 80 years 3.7 - 4.7 3.7 - 4.7 81 - 89 years 3.6 - 4.6 3.6 - 4.6 >8 9 years 3.5 - 4.6 3.5 - 4.6

Pe rfo rmed by:
[facility] ([place])

Globulin, Total (test 2.8 g/dL 1.5-4.5 code = 22724-4) A/G Ratio (test code 1.2 1.2-2.2 = [...] 55 mL/min/1.73 >59 L (test code = 73872-0) eGFR If Africn Am 64 mL/min/1.73 >59 (test code = 79496-0) BUN/Creatinine Ratio 29 9-20 H (test code = 3097-3) Sodium (test code = 139 mmol/L 187-951 0655-2) Potassium (test code 4.4 mmol/L 3.5-5.2 = 2823-3) Chloride (test code = 99 mmol/L 96-106 2075-0) Carbon Dioxide, Total 28 mmol/L 20-29 (test code = 2027-9) Calcium (test code = 8.9 mg/dL 8.7-10.2 09713-3) Protein, Total (test 6.1 g/dL 6.0-8.5 code = 2885-2) Albumin (test code = 3.3 g/dL 3.5-5.5 L Effe ctive 1751-7) April 17 0 Albumin reference interval will b e changing to: Ag e Male Female 0 - 7 days 3.6 - 4.9 3.6 - 4.9 8 - 30 da ys 3.4 - 4.7 3.4 - 4.7 1 - 6 month 3.7 - 4.8 3.7 - 4.8 7 months - 2 years 3.9 - 5.0 3.9 - 5.0 3 - 5 years 4.0 - 5.0 4.0 - 5.0 6 - 1 2 years 4.1 - 5.0 4.0 - 5.0 13 - 30 years 4.1 - 5.2 3.9 - 5.0 31 - 50 years 4.0 - 5.0 3.8 - 4.8 51 - 60 years 3.8 - 4.9 3.8 - 4.9 61 - 70 years 3.8 - 4.8 3.8 - 4.8 71 - 80 years 3.7 - 4.7 3.7 - 4.7 81 - 89 years 3.6 - 4.6 3.6 - 4.6 >8 9 years 3.5 - 4.6 3.5 - 4.6

Pe rfo rmed by:
[facility] [place] ([place])

Globulin, Total (test 2.8 g/dL 1.5-4.5 code = 28123-4) A/G Ratio (test code 1.2 1.2-2.2 = [...] 55 mL/min/1.73 >59 L (test code = 32351-9) eGFR If Africn Am 64 mL/min/1.73 >59 (test code = 01516-0) BUN/Creatinine Ratio 29 9-20 H (test code = 3097-3) Sodium (test code = 139 mmol/L 167-504 4831-2) Potassium (test code 4.4 mmol/L 3.5-5.2 = 2823-3) Chloride (test code = 99 mmol/L 96-106 5-0) Carbon Dioxide, Total 28 mmol/L 20-29 (test code = 2027-9) Calcium (test code = 8.9 mg/dL 8.7-10.2 17257-4) Protein, Total (test 6.1 g/dL 6.0-8.5 code = 2885-2) Albumin (test code = 3.3 g/dL 3.5-5.5 L Effe ctive 1751-7) April 17 0 Albumin reference interval will b e changing to: Ag e Male Female 0 - 7 days 3.6 - 4.9 3.6 - 4.9 8 - 30 da ys 3.4 - 4.7 3.4 - 4.7 1 - 6 month 3.7 - 4.8 3.7 - 4.8 7 months - 2 years 3.9 - 5.0 3.9 - 5.0 3 - 5 years 4.0 - 5.0 4.0 - 5.0 6 - 1 2 years 4.1 - 5.0 4.0 - 5.0 13 - 30 years 4.1 - 5.2 3.9 - 5.0 31 - 50 years 4.0 - 5.0 3.8 - 4.8 51 - 60 years 3.8 - 4.9 3.8 - 4.9 61 - 70 years 3.8 - 4.8 3.8 - 4.8 71 - 80 years 3.7 - 4.7 3.7 - 4.7 81 - 89 years 3.6 - 4.6 3.6 - 4.6 >89 years 3.5 - 4.6 3.5 - 4.6

Pe rfo rmed by:
[facility] ([place])

Globulin, Total (test 2.8 g/dL 1.5-4.5 code = 70020-5) A/G Ratio (test code 1.2 1.2-2.2 = [...] 55 mL/min/1.73 >59 L (test code = 42409-3) eGFR If Africn Am 64 mL/min/1.73 >59 (test code = 81021-9) BUN/Creatinine Ratio 29 9-20 H (test code = 3097-3) Sodium (test code = 139 mmol/L 632-661 3378-2) Potassium (test code 4.4 mmol/L 3.5-5.2 = 2823-3) Chloride (test code = 99 mmol/L 96-106 2075-0) Carbon Dioxide, Total 28 mmol/L 20-29 (test code = 2027-9) Calcium (test code = 8.9 mg/dL 8.7-10.2 74210-4) Protein, Total (test 6.1 g/dL 6.0-8.5 code = 2885-2) Albumin (test code = 3.3 g/dL 3.5-5.5 L Effe ctive 1751-7) April 17 0 Albumin reference interval will b e changing to: Ag e Male Female 0 - 7 days 3.6 - 4.9 3.6 - 4.9 8 - 30 da ys 3.4 - 4.7 3.4 - 4.7 1 - 6 month 3.7 - 4.8 3.7 - 4.8 7 months - 2 years 3.9 - 5.0 3.9 - 5.0 3 - 5 years 4.0 - 5.0 4.0 - 5.0 6 - 1 2 years 4.1 - 5.0 4.0 - 5.0 13 - 30 years 4.1 - 5.2 3.9 - 5.0 31 - 50 years 4.0 - 5.0 3.8 - 4.8 51 - 60 years 3.8 - 4. 9 3.8 - 4.9 61 - 70 years 3.8 - 4.8 3.8 - 4.8 71 - 80 years 3.7 - 4.7 3.7 - 4.7 81 - 89 years 3.6 - 4.6 3.6 - 4.6 >89 years 3.5 - 4.6 3.5 - 4.6

Pe rfo rmed by:
[facility] [place] ([place])

Globulin, Total (test 2.8 g/dL 1.5-4.5 code = 26769-7) A/G Ratio (test code 1.2 1.2-2.2 = [...] 55 mL/min/1.73 >59 L (test code = 33176-6) eGFR If Africn Am 64 mL/min/1.73 >59 (test code = 61511-1) BUN/Creatinine Ratio 29 9-20 H (test code = 3097-3) Sodium (test code = 139 mmol/L 471-302 9808-2) Potassium (test code 4.4 mmol/L 3.5-5.2 = 2823-3) Chloride (test code = 99 mmol/L 96-106 5-0) Carbon Dioxide, Total 28 mmol/L 20-29 (test code = 2027-) Calcium (test code = 8.9 mg/dL 8.7-10.2 40974-5) Protein, Total (test 6.1 g/dL 6.0-8.5 code = 2885-2) Albumin (test code = 3.3 g/dL 3.5-5.5 L Effe ctive 1751-7) April 17 0 Albumin reference interval will b e changing to: Ag e Male Female 0 - 7 days 3.6 - 4.9 3.6 - 4.9 8 - 30 da ys 3.4 - 4.7 3.4 - 4.7 1 - 6 month 3.7 - 4.8 3.7 - 4.8 7 months - 2 years 3.9 - 5.0 3.9 - 5.0 3 - 5 years 4.0 - 5.0 4.0 - 5.0 6 - 1 2 years 4.1 - 5.0 4.0 - 5.0 13 - 30 years 4.1 - 5.2 3.9 - 5.0 31 - 50 years 4.0 - 5.0 3.8 - 4.8 51 - 60 years 3.8 - 4.9 3.8 - 4.9 61 - 70 years 3.8 - 4.8 3.8 - 4.8 71 - 80 years 3.7 - 4.7 3.7 - 4.7 81 - 89 years 3.6 - 4.6 3.6 - 4.6 >89 years 3.5 - 4.6 3.5 - 4.6

Pe rfo rmed by:
[facility] ([place])

Globulin, Total (test 2.8 g/dL 1.5-4.5 code = 32644-3) A/G Ratio (test code 1.2 1.2-2.2 = [...] 55 mL/min/1.73 >59 L (test code = 32669-6) eGFR If Africn Am 64 mL/min/1.73 >59 (test code = 28101-1) BUN/Creatinine Ratio 29 9-20 H (test code = 3097-3) Sodium (test code = 139 mmol/L 036-044 1909-2) Potassium (test code 4.4 mmol/L 3.5-5.2 = 2823-3) Chloride (test code = 99 mmol/L 96-106 5-0) Carbon Dioxide, Total 28 mmol/L 20-29 (test code = 2027-9) Calcium (test code = 8.9 mg/dL 8.7-10.2 21457-9) Protein, Total (test 6.1 g/dL 6.0-8.5 code = 2885-2) Albumin (test code = 3.3 g/dL 3.5-5.5 L Eff ective 175-7) April 17 0 Albumin reference interval will b e changing to: Ag e Male Female 0 - 7 days 3.6 - 4.9 3.6 - 4.9 8 - 30 da ys 3.4 - 4.7 3.4 - 4.7 1 - 6 month 3.7 - 4.8 3.7 - 4.8 7 months - 2 years 3.9 - 5.0 3.9 - 5.0 3 - 5 years 4.0 - 5.0 4.0 - 5.0 6 - 1 2 years 4.1 - 5.0 4.0 - 5.0 13 - 30 years 4.1 - 5.2 3.9 - 5.0 31 - 50 years 4.0 - 5.0 3.8 - 4.8 51 - 60 years 3.8 - 4.9 3.8 - 4.9 61 - 70 years 3.8 - 4.8 3.8 - 4.8 71 - 80 years 3.7 - 4.7 3.7 - 4.7 81 - 89 years 3.6 - 4.6 3.6 - 4.6 >8 9 years 3.5 - 4.6 3.5 - 4.6

Pe rfo rmed by:
[facility] [place] ([place])

Globulin, Total (test 2.8 g/dL 1.5-4.5 code = 19079-8) A/G Ratio (test code 1.2 1.2-2.2 = [...] 55 mL/min/1.73 >59 L (test code = 53710-9) eGFR If Africn Am 64 mL/min/1.73 >59 (test code = 34511-1) BUN/Creatinine Ratio 29 9-20 H (test code = 3097-3) Sodium (test code = 139 mmol/L 488-910 3068-2) Potassium (test code 4.4 mmol/L 3.5-5.2 = 2823-3) Chloride (test code = 99 mmol/L 96-106 2075-0) Carbon Dioxide, Total 28 mmol/L 20-29 (test code = 2027-9) Calcium (test code = 8.9 mg/dL 8.7-10.2 69595-9) Protein, Total (test 6.1 g/dL 6.0-8.5 code = 2885-2) Albumin (test code = 3.3 g/dL 3.5-5.5 L Eff ective 1751-7) April 17 0 Albumin reference interval will b e changing to: Ag e Male Female 0 - 7 days 3.6 - 4.9 3.6 - 4.9 8 - 30 da ys 3.4 - 4.7 3.4 - 4.7 1 - 6 month 3.7 - 4.8 3.7 - 4.8 7 months - 2 years 3.9 - 5.0 3.9 - 5.0 3 - 5 years 4.0 - 5.0 4.0 - 5.0 6 - 1 2 years 4.1 - 5.0 4.0 - 5.0 13 - 30 years 4.1 - 5.2 3.9 - 5.0 31 - 50 years 4.0 - 5.0 3.8 - 4.8 51 - 60 years 3.8 - 4.9 3.8 - 4.9 61 - 70 years 3.8 - 4.8 3.8 - 4.8 71 - 80 years 3.7 - 4.7 3.7 - 4.7 81 - 89 years 3.6 - 4.6 3.6 - 4.6 >8 9 years 3.5 - 4.6 3.5 - 4.6

Pe rfo rmed by:
[facility] [place] ([place])

Globulin, Total (test 2.8 g/dL 1.5-4.5 code = 39975-5) A/G Ratio (test code 1.2 1.2-2.2 = [...] 55 mL/min/1.73 >59 L (test code = 21471-6) eGFR If Africn Am 64 mL/min/1.73 >59 (test code = 72395-5) BUN/Creatinine Ratio 29 9-20 H (test code = 3097-3) Sodium (test code = 139 mmol/L 455-267 1829-2) Potassium (test code 4.4 mmol/L 3.5-5.2 = 2823-3) Chloride (test code = 99 mmol/L 96-106 2075-0) Carbon Dioxide, Total 28 mmol/L 20-29 (test code = 2027-9) Calcium (test code = 8.9 mg/dL 8.7-10.2 80440-4) Protein, Total (test 6.1 g/dL 6.0-8.5 code = 2885-2) Albumin (test code = 3.3 g/dL 3.5-5.5 L Effe ctive 1751-7) April 17 0 Albumin reference interval will b e changing to: Ag e Male Female 0 - 7 days 3.6 - 4.9 3.6 - 4.9 8 - 3 0 days 3.4 - 4.7 3.4 - 4.7 1 - 6 mon th 3.7 - 4.8 3.7 - 4.8 7 months - 2 years 3.9 - 5.0 3.9 - 5.0 3 - 5 years 4.0 - 5.0 4.0 - 5.0 6 - 1 2 years 4.1 - 5.0 4.0 - 5.0 13 - 30 years 4.1 - 5.2 3.9 - 5.0 31 - 50 years 4.0 - 5.0 3.8 - 4.8 51 - 60 years 3.8 - 4.9 3.8 - 4.9 61 - 70 years 3.8 - 4.8 3.8 - 4.8 71 - 80 years 3.7 - 4.7 3.7 - 4.7 81 - 89 years 3.6 - 4.6 3.6 - 4.6 > 89 years 3.5 - 4.6 3.5 - 4.6

Pe rfo rmed by:
[facility] [place] ([place])

Globulin, Total (test 2.8 g/dL 1.5-4.5 code = 87437-6) A/G Ratio (test code 1.2 1.2-2.2 = [...] 55 mL/min/1.73 >59 L (test code = 33392-3) eGFR If Africn Am 64 mL/min/1.73 >59 (test code = 31748-0) BUN/Creatinine Ratio 29 9-20 H (test code = 3097-3) Sodium (test code = 139 mmol/L 293-292 5405-2) Potassium (test code 4.4 mmol/L 3.5-5.2 = 2823-3) Chloride (test code = 99 mmol/L 96-106 5-0) Carbon Dioxide, Total 28 mmol/L 20-29 (test code = 2027-) Calcium (test code = 8.9 mg/dL 8.7-10.2 64638-4) Protein, Total (test 6.1 g/dL 6.0-8.5 code = 2885-2) Albumin (test code = 3.3 g/dL 3.5-5.5 L Effe ctive 1751-7) April 17 0 Albumin reference interval will b e changing to: Ag e Male Female 0 - 7 days 3.6 - 4.9 3.6 - 4.9 8 - 30 da ys 3.4 - 4.7 3.4 - 4.7 1 - 6 month 3.7 - 4.8 3.7 - 4.8 7 months - 2 years 3.9 - 5. 0 3.9 - 5.0 3 - 5 years 4.0 - 5.0 4.0 - 5.0 6 - 1 2 years 4.1 - 5.0 4.0 - 5.0 13 - 30 years 4.1 - 5.2 3.9 - 5.0 31 - 50 years 4.0 - 5.0 3.8 - 4.8 51 - 60 years 3.8 - 4.9 3.8 - 4.9 61 - 70 years 3.8 - 4.8 3.8 - 4.8 71 - 80 years 3.7 - 4.7 3.7 - 4.7 81 - 89 years 3.6 - 4.6 3.6 - 4.6 >89 years 3.5 - 4.6 3.5 - 4.6

Pe rfo rmed by:
[facility] ([place])

Globulin, Total (test 2.8 g/dL 1.5-4.5 code = 13117-8) A/G Ratio (test code 1.2 1.2-2.2 = [...] 55 mL/min/1.73 >59 L (test code = 25060-5) eGFR If Africn Am 64 mL/min/1.73 >59 (test code = 62958-5) BUN/Creatinine Ratio 29 9-20 H (test code = 3097-3) Sodium (test code = 139 mmol/L 118-851 4859-2) Potassium (test code 4.4 mmol/L 3.5-5.2 = 2823-3) Chloride (test code = 99 mmol/L 96-106 5-0) Carbon Dioxide, Total 28 mmol/L 20-29 (test code = 2027-9) Calcium (test code = 8.9 mg/dL 8.7-10.2 35283-1) Protein, Total (test 6.1 g/dL 6.0-8.5 code = 2885-2) Albumin (test code = 3.3 g/dL 3.5-5.5 L Effe ctive 1751-7) April 17 0 Albumin reference interval will b e changing to: Ag e Male Female 0 - 7 days 3.6 - 4.9 3.6 - 4.9 8 - 30 da ys 3.4 - 4.7 3.4 - 4.7 1 - 6 month 3.7 - 4.8 3.7 - 4.8 7 months - 2 years 3.9 - 5.0 3.9 - 5.0 3 - 5 years 4.0 - 5.0 4.0 - 5.0 6 - 1 2 years 4.1 - 5.0 4.0 - 5.0 13 - 30 years 4.1 - 5.2 3.9 - 5.0 31 - 50 years 4.0 - 5.0 3.8 - 4.8 51 - 60 years 3.8 - 4.9 3.8 - 4.9 61 - 70 years 3.8 - 4. 8 3.8 - 4.8 71 - 80 years 3.7 - 4.7 3.7 - 4.7 81 - 89 years 3.6 - 4.6 3.6 - 4.6 >89 years 3.5 - 4.6 3.5 - 4.6

Pe rfo rmed by:
[facility] ([place])

Globulin, Total (test 2.8 g/dL 1.5-4.5 code = 20241-2) A/G Ratio (test code 1.2 1.2-2.2 = [...] 55 mL/min/1.73 >59 L (test code = 72389-6) eGFR If Africn Am 64 mL/min/1.73 >59 (test code = 48457-1) BUN/Creatinine Ratio 29 9-20 H (test code = 3097-3) Sodium (test code = 139 mmol/L 958-878 7105-2) Potassium (test code 4.4 mmol/L 3.5-5.2 = 2823-3) Chloride (test code = 99 mmol/L 96-106 2075-0) Carbon Dioxide, Total 28 mmol/L 20-29 (test code = 2027-) Calcium (test code = 8.9 mg/dL 8.7-10.2 16055-1) Protein, Total (test 6.1 g/dL 6.0-8.5 code = 2885-2) Albumin (test code = 3.3 g/dL 3.5-5.5 L Effe ctive 1751-7) April 17 0 Albumin reference interval will b e changing to: Ag e Male Female 0 - 7 days 3.6 - 4.9 3.6 - 4.9 8 - 30 d ays 3.4 - 4.7 3.4 - 4.7 1 - 6 month 3.7 - 4.8 3.7 - 4.8 7 months - 2 years 3.9 - 5.0 3.9 - 5.0 3 - 5 years 4.0 - 5.0 4.0 - 5.0 6 - 1 2 years 4.1 - 5.0 4.0 - 5.0 13 - 30 years 4.1 - 5.2 3.9 - 5.0 31 - 50 years 4.0 - 5.0 3.8 - 4.8 51 - 60 years 3.8 - 4.9 3.8 - 4.9 61 - 70 years 3.8 - 4.8 3.8 - 4.8 71 - 80 years 3.7 - 4.7 3.7 - 4.7 81 - 89 years 3.6 - 4.6 3.6 - 4.6 >89 years 3.5 - 4. 6 3.5 - 4.6

Pe rfo rmed by:
[facility] ([place])

Globulin, Total (test 2.8 g/dL 1.5-4.5 code = 52320-4) A/G Ratio (test code 1.2 1.2-2.2 = [...] 55 mL/min/1.73 >59 L (test code = 70112-0) eGFR If Africn Am 64 mL/min/1.73 >59 (test code = 82787-5) BUN/Creatinine Ratio 29 9-20 H (test code = 3097-3) Sodium (test code = 139 mmol/L 120-363 8319-2) Potassium (test code 4.4 mmol/L 3.5-5.2 = 2823-3) Chloride (test code = 99 mmol/L 96-106 2075-0) Carbon Dioxide, Total 28 mmol/L 20-29 (test code = 2027-9) Calcium (test code = 8.9 mg/dL 8.7-10.2 66535-7) Protein, Total (test 6.1 g/dL 6.0-8.5 code = 2885-2) Albumin (test code = 3.3 g/dL 3.5-5.5 L Effe ctive 175-7) April 17 0 Albumin reference interval will b e changing to: Ag e Male Female 0 - 7 days 3.6 - 4.9 3.6 - 4.9 8 - 30 d ays 3.4 - 4.7 3.4 - 4.7 1 - 6 month 3.7 - 4.8 3.7 - 4.8 7 months - 2 years 3.9 - 5.0 3.9 - 5.0 3 - 5 years 4.0 - 5.0 4.0 - 5.0 6 - 1 2 years 4.1 - 5.0 4.0 - 5.0 13 - 30 years 4.1 - 5.2 3.9 - 5.0 31 - 50 years 4.0 - 5.0 3.8 - 4.8 51 - 60 years 3.8 - 4.9 3.8 - 4.9 61 - 70 years 3.8 - 4.8 3.8 - 4.8 71 - 80 years 3.7 - 4.7 3.7 - 4.7 81 - 89 years 3.6 - 4.6 3.6 - 4.6 >89 years 3.5 - 4.6 3.5 - 4.6

Pe rfo rmed by:
[facility] ([place])

Globulin, Total (test 2.8 g/dL 1.5-4.5 code = 69629-7) A/G Ratio (test code 1.2 1.2-2.2 = [...] 55 mL/min/1.73 >59 L (test code = 59820-3) eGFR If Africn Am 64 mL/min/1.73 >59 (test code = 46496-7) BUN/Creatinine Ratio 29 9-20 H (test code = 3097-3) Sodium (test code = 139 mmol/L 110-763 8891-2) Potassium (test code 4.4 mmol/L 3.5-5.2 = 2823-3) Chloride (test code = 99 mmol/L 96-106 2074-0) Carbon Dioxide, Total 28 mmol/L 20-29 (test code = 2027-) Calcium (test code = 8.9 mg/dL 8.7-10.2 37830-7) Protein, Total (test 6.1 g/dL 6.0-8.5 code = 2885-2) Albumin (test code = 3.3 g/dL 3.5-5.5 L Effe ctive 1751-7) April 17 0 Albumin reference interval will b e changing to: Ag e Male Female 0 - 7 days 3.6 - 4.9 3.6 - 4.9 8 - 30 d ays 3.4 - 4.7 3.4 - 4.7 1 - 6 month 3.7 - 4.8 3.7 - 4.8 7 months - 2 years 3.9 - 5.0 3.9 - 5.0 3 - 5 years 4.0 - 5.0 4.0 - 5.0 6 - 1 2 years 4.1 - 5.0 4.0 - 5.0 13 - 30 years 4.1 - 5.2 3.9 - 5.0 31 - 50 years 4.0 - 5.0 3.8 - 4.8 51 - 60 years 3.8 - 4.9 3.8 - 4.9 61 - 70 years 3.8 - 4.8 3.8 - 4.8 71 - 80 years 3.7 - 4.7 3.7 - 4.7 81 - 89 years 3.6 - 4.6 3.6 - 4.6 >8 9 years 3.5 - 4.6 3.5 - 4.6

Pe rfo rmed by:
[facility] [place] ()

Globulin, Total (test 2.8 g/dL 1.5-4.5 code = 68882-1) A/G Ratio (test code 1.2 1.2-2.2 = [...] 55 mL/min/1.73 >59 L (test code = 31019-3) eGFR If Africn Am 64 mL/min/1.73 >59 (test code = 02314-6) BUN/Creatinine Ratio 29 9-20 H (test code = 3097-3) Sodium (test code = 139 mmol/L 063-831 5093-2) Potassium (test code 4.4 mmol/L 3.5-5.2 = 2823-3) Chloride (test code = 99 mmol/L 96-106 2075-0) Carbon Dioxide, Total 28 mmol/L 20-29 (test code = 2027-9) Calcium (test code = 8.9 mg/dL 8.7-10.2 79624-6) Protein, Total (test 6.1 g/dL 6.0-8.5 code = 2885-2) Albumin (test code = 3.3 g/dL 3.5-5.5 L Effe ctive 1751-7) April 17 0 Albumin reference interval will b e changing to: Ag e Male Female 0 - 7 days 3.6 - 4.9 3.6 - 4.9 8 - 30 da ys 3.4 - 4.7 3.4 - 4.7 1 - 6 month 3.7 - 4.8 3.7 - 4.8 7 months - 2 years 3.9 - 5.0 3.9 - 5.0 3 - 5 years 4.0 - 5.0 4.0 - 5.0 6 - 1 2 years 4.1 - 5.0 4.0 - 5.0 13 - 30 years 4.1 - 5.2 3.9 - 5.0 31 - 50 years 4.0 - 5.0 3.8 - 4.8 51 - 60 years 3.8 - 4.9 3.8 - 4.9 61 - 70 years 3.8 - 4.8 3.8 - 4.8 71 - 80 years 3.7 - 4.7 3.7 - 4.7 81 - 89 years 3.6 - 4.6 3.6 - 4.6 >89 years 3.5 - 4.6 3.5 - 4.6

Pe rfo rmed by:
[facility] [place] ([place])

Globulin, Total (test 2.8 g/dL 1.5-4.5 code = 69109-5) A/G Ratio (test code 1.2 1.2-2.2 = [...] 55 mL/min/1.73 >59 L (test code = 07605-0) eGFR If Africn Am 64 mL/min/1.73 >59 (test code = 62040-6) BUN/Creatinine Ratio 29 9-20 H (test code = 3097-3) Sodium (test code = 139 mmol/L 765-178 4362-2) Potassium (test code 4.4 mmol/L 3.5-5.2 = 2823-3) Chloride (test code = 99 mmol/L 96-106 2074-0) Carbon Dioxide, Total 28 mmol/L -29 (test code = 2027-) Calcium (test code = 8.9 mg/dL 8.7-10.2 68415-4) Protein, Total (test 6.1 g/dL 6.0-8.5 code = 2885-2) Albumin (test code = 3.3 g/dL 3.5-5.5 L Effe ctive 1751-7) April 17 Albumin reference interval will b e changing to: Ag e Male Female 0 - 7 days 3.6 - 4.9 3.6 - 4.9 8 - 30 da ys 3.4 - 4.7 3.4 - 4.7 1 - 6 month 3.7 - 4.8 3.7 - 4.8 7 months - 2 years 3.9 - 5.0 3.9 - 5.0 3 - 5 years 4.0 - 5. 0 4.0 - 5.0 6 - 1 2 years 4.1 - 5.0 4.0 - 5.0 13 - 30 years 4.1 - 5.2 3.9 - 5.0 31 - 50 years 4.0 - 5.0 3.8 - 4.8 51 - 60 years 3.8 - 4.9 3.8 - 4.9 61 - 70 years 3.8 - 4.8 3.8 - 4.8 71 - 80 years 3.7 - 4.7 3.7 - 4.7 81 - 89 years 3.6 - 4.6 3.6 - 4.6 >89 years 3.5 - 4.6 3.5 - 4.6

Pe rfo rmed by:
[facility] [place] ()

Globulin, Total (test 2.8 g/dL 1.5-4.5 code = 35880-6) A/G Ratio (test code 1.2 1.2-2.2 = [...] 55 mL/min/1.73 >59 L (test code = 73658-6) eGFR If Africn Am 64 mL/min/1.73 >59 (test code = 89175-2) BUN/Creatinine Ratio 29 9-20 H (test code = 3097-3) Sodium (test code = 139 mmol/L 706-864 2613-2) Potassium (test code 4.4 mmol/L 3.5-5.2 = 2823-3) Chloride (test code = 99 mmol/L 96-106 2075-0) Carbon Dioxide, Total 28 mmol/L 20-29 (test code = 2027-9) Calcium (test code = 8.9 mg/dL 8.7-10.2 85600-3) Protein, Total (test 6.1 g/dL 6.0-8.5 code = 2885-2) Albumin (test code = 3.3 g/dL 3.5-5.5 L Effe ctive 1751-7) April 17 0 Albumin reference interval will b e changing to: Ag e Male Female 0 - 7 days 3.6 - 4.9 3.6 - 4.9 8 - 30 da ys 3.4 - 4.7 3.4 - 4.7 1 - 6 month 3.7 - 4.8 3.7 - 4.8 7 months - 2 years 3.9 - 5.0 3.9 - 5.0 3 - 5 years 4.0 - 5.0 4.0 - 5.0 6 - 1 2 years 4.1 - 5.0 4.0 - 5.0 13 - 30 years 4.1 - 5.2 3.9 - 5.0 31 - 50 years 4.0 - 5. 0 3.8 - 4.8 51 - 60 years 3.8 - 4.9 3.8 - 4.9 61 - 70 years 3.8 - 4.8 3.8 - 4.8 71 - 80 years 3.7 - 4.7 3.7 - 4.7 81 - 89 years 3.6 - 4.6 3.6 - 4.6 >89 years 3.5 - 4.6 3.5 - 4.6

Pe rfo rmed by:
[facility] ([place])

Globulin, Total (test 2.8 g/dL 1.5-4.5 code = 87257-1) A/G Ratio (test code 1.2 1.2-2.2 = [...] 55 mL/min/1.73 >59 L (test code = 46960-7) eGFR If Africn Am 64 mL/min/1.73 >59 (test code = 54656-7) BUN/Creatinine Ratio 29 9-20 H (test code = 3097-3) Sodium (test code = 139 mmol/L 516-950 6150-2) Potassium (test code 4.4 mmol/L 3.5-5.2 = 2823-3) Chloride (test code = 99 mmol/L 96-106 2074-0) Carbon Dioxide, Total 28 mmol/L -29 (test code = 2027-) Calcium (test code = 8.9 mg/dL 8.7-10.2 93125-9) Protein, Total (test 6.1 g/dL 6.0-8.5 code = 2885-2) Albumin (test code = 3.3 g/dL 3.5-5.5 L Effe ctive 1751-7) April 17 Albumin reference interval will b e changing to: A ge Male Female 0 - 7 days 3.6 - 4.9 3.6 - 4.9 8 - 30 da ys 3.4 - 4.7 3.4 - 4.7 1 - 6 month 3.7 - 4.8 3.7 - 4.8 7 months - 2 years 3.9 - 5.0 3.9 - 5.0 3 - 5 years 4.0 - 5.0 4.0 - 5.0 6 - 1 2 years 4.1 - 5.0 4.0 - 5.0 13 - 30 years 4.1 - 5.2 3.9 - 5.0 31 - 50 years 4.0 - 5.0 3.8 - 4.8 51 - 60 years 3.8 - 4.9 3.8 - 4.9 61 - 70 years 3.8 - 4.8 3.8 - 4.8 71 - 80 years 3.7 - 4.7 3.7 - 4.7 81 - 89 years 3.6 - 4.6 3.6 - 4.6 >89 years 3.5 - 4.6 3.5 - 4.6

Pe rfo rmed by:
[facility] [place] ([place])

Globulin, Total (test 2.8 g/dL 1.5-4.5 code = 47077-5) A/G Ratio (test code 1.2 1.2-2.2 = [...] 55 mL/min/1.73 >59 L (test code = 51339-9) eGFR If Africn Am 64 mL/min/1.73 >59 (test code = 28022-6) BUN/Creatinine Ratio 29 9-20 H (test code = 3097-3) Sodium (test code = 139 mmol/L 289-294 1668-2) Potassium (test code 4.4 mmol/L 3.5-5.2 = 2823-3) Chloride (test code = 99 mmol/L 96-106 2075-0) Carbon Dioxide, Total 28 mmol/L 20-29 (test code = 8-9) Calcium (test code = 8.9 mg/dL 8.7-10.2 41009-5) Protein, Total (test 6.1 g/dL 6.0-8.5 code = 2885-2) Albumin (test code = 3.3 g/dL 3.5-5.5 L Effe ctive 1751-7) April 17 0 Albumin reference interval will b e changing to: A ge Male Female 0 - 7 days 3.6 - 4.9 3.6 - 4.9 8 - 30 da ys 3.4 - 4.7 3.4 - 4.7 1 - 6 vik h 3.7 - 4.8 3.7 - 4.8 7 months - 2 years 3.9 - 5.0 3.9 - 5.0 3 - 5 years 4.0 - 5.0 4.0 - 5.0 6 - 12 years 4.1 - 5.0 4.0 - 5.0 13 - 30 years 4.1 - 5.2 3.9 - 5.0 31 - 50 years 4.0 - 5.0 3.8 - 4.8 51 - 60 years 3.8 - 4.9 3.8 - 4.9 61 - 70 years 3.8 - 4.8 3.8 - 4.8 71 - 80 years 3.7 - 4.7 3.7 - 4.7 81 - 89 years 3.6 - 4.6 3.6 - 4.6 >8 9 years 3.5 - 4.6 3.5 - 4.6

Pe rfo rmed by:
[facility] ([place])

Globulin, Total (test 2.8 g/dL 1.5-4.5 code = 98508-6) A/G Ratio (test code 1.2 1.2-2.2 = [...] 55 mL/min/1.73 >59 L (test code = 63075-8) eGFR If Africn Am 64 mL/min/1.73 >59 (test code = 33981-2) BUN/Creatinine Ratio 29 9-20 H (test code = 3097-3) Sodium (test code = 139 mmol/L 793-995 5945-2) Potassium (test code 4.4 mmol/L 3.5-5.2 = 2823-3) Chloride (test code = 99 mmol/L 96-106 2075-0) Carbon Dioxide, Total 28 mmol/L - (test code = 2027-) Calcium (test code = 8.9 mg/dL 8.7-10.2 56382-2) Protein, Total (test 6.1 g/dL 6.0-8.5 code = 2885-2) Albumin (test code = 3.3 g/dL 3.5-5.5 L Effe ctive 1751-7) April 17 Albumin reference interval will b e changing to: A ge Male Female 0 - 7 days 3.6 - 4.9 3.6 - 4.9 8 - 30 da ys 3.4 - 4.7 3.4 - 4.7 1 - 6 vik h 3.7 - 4.8 3.7 - 4.8 7 months - 2 years 3.9 - 5.0 3.9 - 5.0 3 - 5 years 4.0 - 5.0 4.0 - 5.0 6 - 12 years 4.1 - 5.0 4.0 - 5.0 13 - 30 years 4.1 - 5.2 3.9 - 5.0 31 - 50 years 4.0 - 5.0 3.8 - 4.8 51 - 60 years 3.8 - 4.9 3.8 - 4.9 61 - 70 years 3.8 - 4.8 3.8 - 4.8 71 - 80 years 3.7 - 4.7 3.7 - 4.7 81 - 89 years 3.6 - 4.6 3.6 - 4.6 >8 9 years 3.5 - 4.6 3.5 - 4.6

Pe rfo rmed by:
[facility] [place] ()

Globulin, Total (test 2.8 g/dL 1.5-4.5 code = 82283-4) A/G Ratio (test code 1.2 1.2-2.2 = [...] 55 mL/min/1.73 >59 L (test code = 55624-6) eGFR If Africn Am 64 mL/min/1.73 >59 (test code = 17922-0) BUN/Creatinine Ratio 29 9-20 H (test code = 3097-3) Sodium (test code = 139 mmol/L 900-669 9243-2) Potassium (test code 4.4 mmol/L 3.5-5.2 = 2823-3) Chloride (test code = 99 mmol/L 96-106 2075-0) Carbon Dioxide, Total 28 mmol/L 20-29 (test code = 2027-9) Calcium (test code = 8.9 mg/dL 8.7-10.2 90853-8) Protein, Total (test 6.1 g/dL 6.0-8.5 code = 2885-2) Albumin (test code = 3.3 g/dL 3.5-5.5 L Effe ctive 1751-7) April 17 0 Albumin reference interval will b e changing to: Ag e Male Female 0 - 7 days 3.6 - 4.9 3.6 - 4.9 8 - 30 da ys 3.4 - 4.7 3.4 - 4.7 1 - 6 month 3.7 - 4.8 3.7 - 4.8 7 months - 2 years 3.9 - 5.0 3.9 - 5.0 3 - 5 years 4.0 - 5.0 4.0 - 5.0 6 - 12 years 4.1 - 5.0 4.0 - 5.0 13 - 30 years 4.1 - 5.2 3.9 - 5.0 31 - 50 years 4.0 - 5.0 3.8 - 4.8 51 - 60 years 3.8 - 4.9 3.8 - 4.9 61 - 70 years 3.8 - 4.8 3.8 - 4.8 71 - 80 years 3.7 - 4.7 3.7 - 4.7 81 - 89 years 3.6 - 4.6 3.6 - 4.6 >8 9 years 3.5 - 4.6 3.5 - 4.6

Pe rfo rmed by:
[facility] ([place])

Globulin, Total (test 2.8 g/dL 1.5-4.5 code = 53835-5) A/G Ratio (test code 1.2 1.2-2.2 = [...] 55 mL/min/1.73 >59 L (test code = 15048-9) eGFR If Africn Am 64 mL/min/1.73 >59 (test code = 40629-3) BUN/Creatinine Ratio 29 9-20 H (test code = 3097-3) Sodium (test code = 139 mmol/L 362-998 7886-2) Potassium (test code 4.4 mmol/L 3.5-5.2 = 2823-3) Chloride (test code = 99 mmol/L 96-106 2075-0) Carbon Dioxide, Total 28 mmol/L 20-29 (test code = 2028-9) Calcium (test code = 8.9 mg/dL 8.7-10.2 63634-0) Protein, Total (test 6.1 g/dL 6.0-8.5 code = 2885-2) Albumin (test code = 3.3 g/dL 3.5-5.5 L Effe ctive 1751-7) April 17 0 Albumin reference interval will b e changing to: Ag e Male Female 0 - 7 days 3.6 - 4.9 3.6 - 4.9 8 - 30 da ys 3.4 - 4.7 3.4 - 4.7 1 - 6 month 3.7 - 4.8 3.7 - 4.8 7 months - 2 years 3.9 - 5.0 3.9 - 5.0 3 - 5 years 4.0 - 5.0 4.0 - 5.0 6 - 1 2 years 4.1 - 5.0 4.0 - 5.0 13 - 30 years 4.1 - 5.2 3.9 - 5.0 31 - 50 years 4.0 - 5.0 3.8 - 4.8 51 - 60 years 3.8 - 4.9 3.8 - 4.9 61 - 70 years 3.8 - 4.8 3.8 - 4.8 71 - 80 years 3.7 - 4.7 3.7 - 4.7 81 - 89 years 3.6 - 4.6 3.6 - 4.6 >89 years 3.5 - 4.6 3.5 - 4.6

Pe rfo rmed by:
[facility] [place] ()

Globulin, Total (test 2.8 g/dL 1.5-4.5 code = 33434-9) A/G Ratio (test code 1.2 1.2-2.2 = [...] 55 mL/min/1.73 >59 L (test code = 15135-0) eGFR If Africn Am 64 mL/min/1.73 >59 (test code = 54326-2) BUN/Creatinine Ratio 29 9-20 H (test code = 3097-3) Sodium (test code = 139 mmol/L 864-832 1043-2) Potassium (test code 4.4 mmol/L 3.5-5.2 = 2823-3) Chloride (test code = 99 mmol/L 96-106 2075-0) Carbon Dioxide, Total 28 mmol/L 20-29 (test code = 2027-9) Calcium (test code = 8.9 mg/dL 8.7-10.2 37444-1) Protein, Total (test 6.1 g/dL 6.0-8.5 code = 2885-2) Albumin (test code = 3.3 g/dL 3.5-5.5 L Effe ctive 1751-7) April 17 0 Albumin reference interval will b e changing to: Ag e Male Female 0 - 7 days 3.6 - 4.9 3.6 - 4.9 8 - 30 da ys 3.4 - 4.7 3.4 - 4.7 1 - 6 month 3.7 - 4.8 3.7 - 4.8 7 months - 2 years 3.9 - 5.0 3.9 - 5.0 3 - 5 years 4.0 - 5.0 4.0 - 5.0 6 - 1 2 years 4.1 - 5.0 4.0 - 5.0 13 - 30 years 4.1 - 5.2 3.9 - 5.0 31 - 50 years 4.0 - 5.0 3.8 - 4.8 51 - 60 years 3.8 - 4. 9 3.8 - 4.9 61 - 70 years 3.8 - 4.8 3.8 - 4.8 71 - 80 years 3.7 - 4.7 3.7 - 4.7 81 - 89 years 3.6 - 4.6 3.6 - 4.6 >89 years 3.5 - 4.6 3.5 - 4.6

Pe rfo rmed by:
[facility] ([place])

Globulin, Total (test 2.8 g/dL 1.5-4.5 code = 51126-4) A/G Ratio (test code 1.2 1.2-2.2 = [...] 55 mL/min/1.73 >59 L (test code = 57654-8) eGFR If Africn Am 64 mL/min/1.73 >59 (test code = 98316-7) BUN/Creatinine Ratio 29 9-20 H (test code = 3097-3) Sodium (test code = 139 mmol/L 413-038 1053-2) Potassium (test code 4.4 mmol/L 3.5-5.2 = 2823-3) Chloride (test code = 99 mmol/L 96-106 2075-0) Carbon Dioxide, Total 28 mmol/L 20-29 (test code = 2027-9) Calcium (test code = 8.9 mg/dL 8.7-10.2 54996-8) Protein, Total (test 6.1 g/dL 6.0-8.5 code = 2885-2) Albumin (test code = 3.3 g/dL 3.5-5.5 L Effe ctive 1751-7) April 17 0 Albumin reference interval will b e changing to: Ag e Male Female 0 - 7 days 3.6 - 4.9 3.6 - 4.9 8 - 30 da ys 3.4 - 4.7 3.4 - 4.7 1 - 6 month 3.7 - 4.8 3.7 - 4.8 7 months - 2 years 3.9 - 5.0 3.9 - 5.0 3 - 5 years 4.0 - 5.0 4.0 - 5.0 6 - 1 2 years 4.1 - 5.0 4.0 - 5.0 13 - 30 years 4.1 - 5.2 3.9 - 5.0 31 - 50 years 4.0 - 5.0 3.8 - 4.8 51 - 60 years 3.8 - 4.9 3.8 - 4.9 61 - 70 years 3.8 - 4.8 3.8 - 4.8 71 - 80 years 3.7 - 4.7 3.7 - 4.7 81 - 89 years 3.6 - 4. 6 3.6 - 4.6 >8 9 years 3.5 - 4.6 3.5 - 4.6

Pe rfo rmed by:
[facility] [place] ([place])

Globulin, Total (test 2.8 g/dL 1.5-4.5 code = 67887-9) A/G Ratio (test code 1.2 1.2-2.2 = [...] 55 mL/min/1.73 >59 L (test code = 28568-6) eGFR If Africn Am 64 mL/min/1.73 >59 (test code = 23202-3) BUN/Creatinine Ratio 29 9-20 H (test code = 3097-3) Sodium (test code = 139 mmol/L 091-552 2752-2) Potassium (test code 4.4 mmol/L 3.5-5.2 = 2823-3) Chloride (test code = 99 mmol/L 96-106 2075-0) Carbon Dioxide, Total 28 mmol/L 20-29 (test code = 2027-9) Calcium (test code = 8.9 mg/dL 8.7-10.2 82369-5) Protein, Total (test 6.1 g/dL 6.0-8.5 code = 2885-2) Albumin (test code = 3.3 g/dL 3.5-5.5 L Effe ctive 1751-7) April 17 0 Albumin reference interval will b e changing to: Ag e Male Female 0 - 7 days 3.6 - 4.9 3.6 - 4.9 8 - 30 da ys 3.4 - 4.7 3.4 - 4.7 1 - 6 month 3.7 - 4.8 3.7 - 4.8 7 months - 2 years 3.9 - 5.0 3.9 - 5.0 3 - 5 years 4.0 - 5.0 4.0 - 5.0 6 - 1 2 years 4.1 - 5.0 4.0 - 5.0 13 - 30 years 4.1 - 5.2 3.9 - 5.0 31 - 50 years 4.0 - 5.0 3.8 - 4.8 51 - 60 years 3.8 - 4.9 3.8 - 4.9 61 - 70 years 3.8 - 4.8 3.8 - 4.8 71 - 80 years 3.7 - 4.7 3.7 - 4.7 81 - 89 years 3.6 - 4.6 3.6 - 4.6 >8 9 years 3.5 - 4.6 3.5 - 4.6

Pe rfo rmed by:
[facility] [place] ([place])

Globulin, Total (test 2.8 g/dL 1.5-4.5 code = 26882-8) A/G Ratio (test code 1.2 1.2-2.2 = 1759-0) Bilirubin, Total 0.5 mg/dL 0.0-1.2 (test code = 1975-2) Alkaline Phosphatase 100 IU/L 39-117 (test code = 6768-6) AST (SGOT) (test code 22 IU/L 0-40 = 1920-8) ALT (SGPT) (test code 27 IU/L 0-44 = 1742-6) AccessHealthRAPID STREP A [id number] 11:58:00 Test Item Value Reference Range Interpretation Comments STREP A ANTIGEN ([facility]) (test code Negative = 556) POCT-GLUCOSE [id number] 22:44:00 Test Item Value Reference Range Interpretation Comments POC-GLUCOSE METER 431 mg/dL 70-110 HH TESTED AT [address] ([facility]) (test code [facility] [place] = 1538) [address] POCT-GLUCOSE [id number] 22:44:00 Test Item Value Reference Range Interpretation Comments POC-GLUCOSE METER 455 mg/dL 70-110 TESTED AT [address] ([facility]) (test code [facility] [place] = 1538) [address] URINALYSIS W/ REFLEX URINE [id number] 20:30:00 Test Item Value Reference Range Interpretation [...] SOURCE(BEAKER) (test code = 2795) COMPREHENSIVE METABOLIC [id number] 20:27:00 Test Item Value Reference Range Interpretation [...] S NOT APPLICABLE FOR DIALYSIS PATIEN TS. [id number] 20:27:00 Test Item Value Reference Range Interpretation Comments LIPASE (BEAKER) (test code = 749) 37 U/L 6-51 [id number] 20:23:00 Test Item Value Reference Range Interpretation [...] Information (Auto Output)CBC W/PLT COUNT & AUTO [id number] 20:11:00 Test Item Value Reference Range Interpretation [...] (BEAKER) (test code = 2801) BASIC METABOLIC [id number] 06:52:00 Test Item Value Reference Range Interpretation [...] NOT APPLICABLE FOR DIALYSIS PATIEN TS. POCT-GLUCOSE [id number] 05:58:00 Test Item Value Reference Range Interpretation Comments POC-GLUCOSE METER 222 mg/dL 70-110 H TESTED AT [address] ([facility]) (test code [facility] [place] = 1538) [address] POCT-GLUCOSE [id number] 20:37:00 Test Item Value Reference Range Interpretation Comments POC-GLUCOSE METER 157 mg/dL 70-110 H TESTED AT [address] ([facility]) (test code [facility] [place] = 1538) [address] POCT-GLUCOSE [id number] 18:13:00 Test Item Value Reference Range Interpretation Comments POC-GLUCOSE METER 176 mg/dL 70-110 H TESTED AT [address] ([facility]) (test code [facility] [place] = 1538) [address] POCT-GLUCOSE [id number] 12:16:00 Test Item Value Reference Range Interpretation Comments POC-GLUCOSE METER 161 mg/dL 70-110 H TESTED AT [address] ([facility]) (test code [facility] [place] = 1538) [address] BASIC METABOLIC [id number] 07:11:00 Test Item Value Reference Range Interpretation [...] PATIEN TS. CBC W/PLT COUNT & AUTO [id number] 06:27:00 Test Item Value Reference Range Interpretation [...] PERCENT (BEAKER) (test code = 2801) POCT-GLUCOSE [id number] 06:22:00 Test Item Value Reference Range Interpretation Comments POC-GLUCOSE METER 172 mg/dL 70-110 H TESTED AT [address] (BEAKER) (test code [facility] [place] = 1538) [address] POCT-GLUCOSE [id number] 20:27:00 Test Item Value Reference Range Interpretation Comments POC-GLUCOSE METER 209 mg/dL 70-110 H TESTED AT [address] [facility] (test code [facility] [place] = [facility]) [address] POCT-GLUCOSE [id number] 18:12:00 Test Item Value Reference Range Interpretation Comments POC-GLUCOSE METER 192 mg/dL 70-110 H TESTED AT [address] (BEAKER) (test code [facility] [place] = 1538) [address] POCT-GLUCOSE [id number] 11:20:00 Test Item Value Reference Range Interpretation Comments POC-GLUCOSE METER 192 mg/dL 70-110 H TESTED AT [address] (BEAKER) (test code [facility] [place] = 1538) [address] BASIC METABOLIC [id number] 07:02:00 Test Item Value Reference Range Interpretation [...] PATIEN TS. CBC W/PLT COUNT & AUTO [id number] 06:41:00 Test Item Value Reference Range Interpretation [...] PERCENT (BEAKER) (test code = 2801) POCT-GLUCOSE [id number] 06:13:00 Test Item Value Reference Range Interpretation Comments POC-GLUCOSE METER 134 mg/dL 70-110 H TESTED AT [address] ([facility]) (test code [facility] [place] = 1538) [address] POCT-GLUCOSE [id number] 21:38:00 Test Item Value Reference Range Interpretation Comments POC-GLUCOSE METER 114 mg/dL 70-110 H TESTED AT [address] ([facility]) (test code [facility] [place] = 1538) [address] POCT-GLUCOSE [id number] 16:58:00 Test Item Value Reference Range Interpretation Comments POC-GLUCOSE METER 294 mg/dL 70-110 H TESTED AT [address] ([facility]) (test code [facility] [place] = 1538) 230[address] POCT-GLUCOSE [id number] 12:03:00 Test Item Value Reference Range Interpretation Comments POC-GLUCOSE METER 157 mg/dL 70-110 H TESTED AT [address] ([facility]) (test code [facility] [place] = 1538) [address] POCT-GLUCOSE [id number] 06:50:00 Test Item Value Reference Range Interpretation Comments POC-GLUCOSE METER 167 mg/dL 70-110 H TESTED AT [address] ([facility]) (test code [facility] [place] = 1538) [address] BASIC METABOLIC [id number] 05:07:00 Test Item Value Reference Range Interpretation [...] S NOT APPLICABLE FOR DIALYSIS PATIEN TS. [id number] 05:01:00 Test Item Value Reference Range Interpretation Comments MAGNESIUM (BEAKER) (test code = 2.0 mg/dL 1.5-3.0 627) CBC W/PLT COUNT & AUTO [id number] 04:43:00 Test Item Value Reference Range Interpretation [...] PERCENT (BEAKER) (test code = 2801) POCT-GLUCOSE [id number] 20:37:00 Test Item Value Reference Range Interpretation Comments POC-GLUCOSE METER 212 mg/dL 70-110 H TESTED AT [address] ([facility]) (test code [facility] [place] = 1538) [address] POCT-GLUCOSE [id number] 17:03:00 Test Item Value Reference Range Interpretation Comments POC-GLUCOSE METER 176 mg/dL 70-110 H TESTED AT [address] ([facility]) (test code [facility] [place] = 1538) [address] POCT-GLUCOSE [id number] 12:05:00 Test Item Value Reference Range Interpretation Comments POC-GLUCOSE METER 169 mg/dL 70-110 H TESTED AT [address] ([facility]) (test code [facility] [place] = 1538) [address] POCT-GLUCOSE [id number] 09:25:00 Test Item Value Reference Range Interpretation Comments POC-GLUCOSE METER 148 mg/dL 70-110 H TESTED AT [address] ([facility]) (test code [facility] [place] = 1538) [address] BASIC METABOLIC [id number] 06:32:00 Test Item Value Reference Range Interpretation [...] NOT APPLICABLE FOR DIALYSIS PATIEN TS. POCT-GLUCOSE [id number] 06:12:00 Test Item Value Reference Range Interpretation Comments POC-GLUCOSE METER 165 mg/dL 70-110 H TESTED AT [facility] ([facility]) (test code [facility] [place] = 1538) [address] CBC W/PLT COUNT & AUTO [id number] 06:00:00 Test Item Value Reference Range Interpretation [...] PERCENT (BEAKER) (test code = 2801) POCT-GLUCOSE [id number] 21:02:00 Test Item Value Reference Range Interpretation Comments POC-GLUCOSE METER 185 mg/dL 70-110 H TESTED AT [address] ([facility]) (test code [facility] [place] = 1538) [address] POCT-GLUCOSE [id number] 16:21:00 Test Item Value Reference Range Interpretation Comments POC-GLUCOSE METER 141 mg/dL 70-110 H TESTED AT [address] [facility] (test code [facility] [place] = 1538) [address] POCT-GLUCOSE [id number] 12:26:00 Test Item Value Reference Range Interpretation Comments POC-GLUCOSE METER 145 mg/dL 70-110 H TESTED AT [facility] [address] [place] [address] (BEAKER) (test code [facility] [place] = 1538) [address] POCT-GLUCOSE [id number] 06:43:00 Test Item Value Reference Range Interpretation Comments POC-GLUCOSE METER 170 mg/dL 70-110 H TESTED AT [facility] [address] [place] [address] (BEAKER) (test code [facility] [place] = 1538) [address] BASIC METABOLIC [id number] 06:39:00 Test Item Value Reference Range Interpretation [...] S NOT APPLICABLE FOR DIALYSIS PATIEN TS. [id number] 06:33:00 Test Item Value Reference Range Interpretation Comments MAGNESIUM (BEAKER) (test code = 1.9 mg/dL 1.5-3.0 627) CBC W/PLT COUNT & AUTO [id number] 06:10:00 Test Item Value Reference Range Interpretation [...] 0-0 H PERCENT (BEAKER) (test code = 2806) POCT-GLUCOSE [id number] 21:08:00 Test Item Value Reference Range Interpretation Comments POC-GLUCOSE METER 218 mg/dL 70-110 H TESTED AT [address] ([facility]) (test code [facility] [place] = 1538) [address] POCT-GLUCOSE [id number] 16:36:00 Test Item Value Reference Range Interpretation Comments POC-GLUCOSE METER 142 mg/dL 70-110 H TESTED AT [facility] [address] [place] [address] ([facility]) (test code [facility] [place] = 1538) [address] POCT-GLUCOSE [id number] 11:26:00 Test Item Value Reference Range Interpretation Comments POC-GLUCOSE METER 191 mg/dL 70-110 H TESTED AT [facility] [address] [place] [address] ([facility]) (test code [facility] [place] = 1538) [address] VANCOMYCIN LEVEL, [id number] 09:08:00 Test Item Value Reference Range Interpretation Comments VANCOMYCIN TROUGH (BEAKER) (test 17.9 ug/mL 10.0-20.0 code = 522) VANCOMYCIN DOSING BY RX - follow upTROUGH PRIOR TO DOSE ON 01/20/18 AT 8:30am COMPREHENSIVE METABOLIC [id number] 06:57:00 Test Item Value Reference Range Interpretation [...] NOT APPLICABLE FOR DIALYSIS PATIEN TS. POCT-GLUCOSE [id number] 06:33:00 Test Item Value Reference Range Interpretation Comments POC-GLUCOSE METER 226 mg/dL 70-110 H TESTED AT [address] ([facility]) (test code [facility] [place] = 1538) [address] B-TYPE NATRIURETIC FACTOR (BNP)2018-01-20 06:00:00 Test Item Value Reference Range Interpretation Comments B-TYPE NATRIURETIC PEPTIDE (BEAKER) 371 pg/mL 0-100 H (test code = 700) CBC W/PLT COUNT & AUTO [id number] 05:40:00 Test Item Value Reference Range Interpretation [...] (BEAKER) (test code = 2801) BASIC METABOLIC [id number] 23:25:00 Test Item Value Reference Range Interpretation [...] S NOT APPLICABLE FOR DIALYSIS PATIEN TS. [id number] 23:19:00 Test Item Value Reference Range Interpretation Comments MAGNESIUM (BEAKER) (test code = 1.9 mg/dL 1.5-3.0 627) POCT-GLUCOSE [id number] 21:12:00 Test Item Value Reference Range Interpretation Comments POC-GLUCOSE METER 237 mg/dL 70-110 H TESTED AT [facility] ([facility]) (test code [facility] [place] = 1538) [address] POCT-GLUCOSE [id number] 17:00:00 Test Item Value Reference Range Interpretation Comments POC-GLUCOSE METER 156 mg/dL 70-110 H TESTED AT [facility] ([facility]) (test code [facility] [place] = 1538) [address] POCT-GLUCOSE [id number] 12:51:00 Test Item Value Reference Range Interpretation Comments POC-GLUCOSE METER 135 mg/dL 70-110 H TESTED AT [facility] ([facility]) (test code [facility] [place] = 1538) [address] POCT-GLUCOSE [id number] 08:16:00 Test Item Value Reference Range Interpretation Comments POC-GLUCOSE METER 212 mg/dL 70-110 H TESTED AT [address] ([facility]) (test code [facility] [place] = 1538) [address] VANCOMYCIN LEVEL, [id number] 21:00:00 Test Item Value Reference Range Interpretation Comments VANCOMYCIN TROUGH ([facility]) (test 14.3 ug/mL 10.0-20.0 code = 522) POCT-GLUCOSE [id number] 20:56:00 Test Item Value Reference Range Interpretation Comments POC-GLUCOSE METER 216 mg/dL 70-110 H TESTED AT [facility] ([facility]) (test code [facility] [place] = 1538) [address] POCT-GLUCOSE [id number] 17:03:00 Test Item Value Reference Range Interpretation Comments POC-GLUCOSE METER 269 mg/dL 70-110 H TESTED AT [facility] (test code [facility] [place] = 1538) [address] POCT-GLUCOSE [id number] 06:22:00 Test Item Value Reference Range Interpretation Comments POC-GLUCOSE METER 115 mg/dL 70-110 H TESTED AT [facility] (test code [facility] [place] = 1538) [address] BASIC METABOLIC [id number] 04:43:00 Test Item Value Reference Range Interpretation [...] S NOT APPLICABLE FOR DIALYSIS PATIEN TS. [id number] 04:37:00 Test Item Value Reference Range Interpretation Comments MAGNESIUM (BEAKER) (test code = 1.8 mg/dL 1.5-3.0 627) CBC W/PLT COUNT & AUTO [id number] 04:24:00 Test Item Value Reference Range Interpretation [...] PERCENT (BEAKER) (test code = 2801) POCT-GLUCOSE [id number] 20:55:00 Test Item Value Reference Range Interpretation Comments POC-GLUCOSE METER 145 mg/dL 70-110 H TESTED AT [address] ([facility]) (test code [facility] [place] = 1538) [address] VENOUS DOPPLER LEGS, [id number] 17:50:00Reason for exam:->r/o DVT FINAL REPORT Comparison: 12/08/2017 Discussion: Grayscale, color Doppler, spectral wave form analysis of the deep venous system of the bilateral lower extremities was performed. Thecommon femoral, femoral, and popliteal veins are normally compressible and demonstrate normal spontaneous phasic wave forms.The visualized calf veins are patent. Impression: No evidence of deep venous thrombus in the bilateral lower extremities. Signed: Gab Bonilla MDReport Verified Date/Time: 01/17/2018 17:50:07 Reading Location: [facility] Mammo Reading Room -GLUCOSE [id number] 17:04:00 Test Item Value Reference Range Interpretation Comments POC-GLUCOSE METER 134 mg/dL 70-110 H TESTED AT [address] (BEAKER) (test code [facility] [place] = 1538) [address] POCT-GLUCOSE [id number] 11:54:00 Test Item Value Reference Range Interpretation Comments POC-GLUCOSE METER 219 mg/dL 70-110 H TESTED AT [address] (BEAKER) (test code [facility] [place] = 1538) [address] POCT-GLUCOSE [id number] 09:10:00 Test Item Value Reference Range Interpretation Comments POC-GLUCOSE METER 48 mg/dL 70-110 L TESTED AT [address] (BEAKER) (test code = [address] [facility] 1538) [address] BASIC METABOLIC [id number] 06:27:00 Test Item Value Reference Range Interpretation [...] NOT APPLICABLE FOR DIALYSIS PATIEN TS. POCT-GLUCOSE [id number] 06:26:00 Test Item Value Reference Range Interpretation Comments POC-GLUCOSE METER 101 mg/dL 70-110 TESTED AT [address] (BEAKER) (test code [facility] [place] = 1538) [address] CBC W/PLT COUNT & AUTO [id number] 05:58:00 Test Item Value Reference Range Interpretation [...] PERCENT (BEAKER) (test code = 2801) TROPONIN [id number] 00:11:00 Test Item Value Reference Range Interpretation [...] = 700) RAD, CHEST, 1 VIEW, NON [id number] 00:09:00Reason for exam:->SHORTNESS OF BREATHReason for exam:->EDEMAReason for exam:->WEIGHT GAINShould this be performed at the bedside?->YesFINAL REPORT INDICATION: SHORTNESS OF BREATHEDEMAWEIGHT GAIN COMPARISON: December 07, 2017 TECHNIQUE: Single frontal view of the chest. FINDINGS: Lungs and pleura: Clear lungs. No effusion.Heart and mediastinum: Stable prominent cardiac size. Unremarkable mediastinal contours.Osseous structures: No acute abnormality.Other: None. IMPRESSION: No acute intrathoracic abnormality. Signed: JR Lockhart Robert MDReport Verified Date/Time: 01/17/2018 00:09:15 Reading Location: [address] Body Reading Room BASIC METABOLIC [id number] 00:02:00 Test Item Value Reference Range Interpretation [...] PATIEN TS. CBC W/PLT COUNT & AUTO [id number] 23:35:00 Test Item Value Reference Range Interpretation [...] PERCENT (BEAKER) (test code = 2801) BLOOD [id number] 10:00:00 Test Item Value Reference Range Interpretation Comments CULTURE (BEAKER) (test No growth in 5 days code = 1095) BLOOD [id number] 10:00:00 Test Item Value Reference Range Interpretation Comments CULTURE (BEAKER) (test No growth in 5 days code = 1095) WOUND CULTURE + GRAM [id number] 10:10:00 Test Item Value Reference Interpretation Comments [...] (test code = cocci in pairs and 105883) clusters POCT-GLUCOSE [id number] 17:33:00 Test Item Value Reference Range Interpretation Comments POC-GLUCOSE METER 105 mg/dL 70-110 TESTED AT [place] [id number] [place] ([facility]) (test code [facility] [place] = 1538) [address] URINALYSIS W/ REFLEX URINE [id number] 09:56:00 Test Item Value Reference Range Interpretation [...] 1663) SOURCE(BEAKER) (test code = 2795) POCT-GLUCOSE [id number] 08:36:00 Test Item Value Reference Range Interpretation Comments POC-GLUCOSE METER 162 mg/dL 70-110 H TESTED AT [facility] [address] [place] ([facility]) (test code [facility] [place] = 1538) [address] TSH/FREE T4 IF [id number] 07:04:00 Test Item Value Reference Range Interpretation Comments THYROID STIMULATING HORMONE 4.64 uIU/mL 0.35-5.50 (BEAKER) (test code = 772) LIPID [id number] 06:50:00 Test Item Value Reference Range Interpretation Comments TRIGLYCERIDES (BEAKER) (test code = 64 mg/dL 540) CHOLESTEROL (BEAKER) (test code = 203 mg/dL 631) HDL CHOLESTEROL (BEAKER) (test code 27 mg/dL = 976) LDL CHOLESTEROL CALCULATED (BEAKER) 163 mg/dL (test code = 633) Triglyceride Reference Range: Low Risk <150 Borderline 150-199 High Risk 200- 499 Very High Risk >=500Cholesterol Reference Range: Low Risk <200 Borderline 200-239 High Risk >240HDL Cholesterol Reference Range: Low Risk >=60 High Risk <40LDL Cholesterol Reference Range: Optimal <100 Near Optimal 100-129 Borderline 130-159 High 160-189 Very High >=190BASIC METABOLIC [id number] 06:48:00 Test Item Value Reference Range Interpretation [...] PATIEN TS. CBC W/PLT COUNT & AUTO [id number] 06:33:00 Test Item Value Reference Range Interpretation [...] IMMATURE GRANULOCYTES-RELATIVE 1 % 0-0 H PERCENT (CECILIO) (test code = 2801) HEMOGLOBIN [id number] 06:32:00 Test Item Value Reference Range Interpretation Comments HEMOGLOBIN A1C (CECILIO) (test code = 10.4 % 4.3-6.1 H 368) VENOUS DOPPLER LEGS, [id number] 05:53:00Reason for exam:->edema rule out DVT/ CellulitisFINAL [...] MDReport Verified Date/Time: 12/08/2017 05:53:51 Reading Location: [address] Body Reading Room TROPONIN [id number] 00:46:00 Test Item Value Reference Range Interpretation [...] acidosis, acute neurological disease, and persistent tachyarrhythmia.POCT-GLUCOSE [id number] 21:14:00 Test Item Value Reference Range Interpretation Comments POC-GLUCOSE METER 221 mg/dL 70-110 H TESTED AT [address] (CECILIO) (test code [facility] [place] = 1538) [address] POCT-GLUCOSE [id number] 16:43:00 Test Item Value Reference Range Interpretation Comments POC-GLUCOSE METER 371 mg/dL 70-110 H TESTED AT [facility] [address] [place] (BEAKER) (test code [facility] [place] = 1533) [address] CREATINE KINASE (CK), TOTAL AND [id number] 14:26:00 Test Item Value Reference Range Interpretation [...] acute neurological disease, and persistent tachyarrhythmia.BASIC METABOLIC [id number] 14:00:00 Test Item Value Reference Range Interpretation [...] S NOT APPLICABLE FOR DIALYSIS PATIEN TS. [id number] 13:54:00 Test Item Value Reference Range Interpretation Comments MAGNESIUM (BEAKER) 2.1 mg/dL 1.5-3.0 Specimen slightly (test code = 627) hemolyzed B-TYPE NATRIURETIC FACTOR (BNP)2017-12-07 13:48:00 Test Item Value Reference Range Interpretation Comments B-TYPE NATRIURETIC PEPTIDE (BEAKER) 520 pg/mL 0-100 H (test code = 700) [id number] 13:19:00 Test Item Value Reference Range Interpretation [...] Information (Auto Output)CBC W/PLT COUNT & AUTO [id number] 13:07:00 Test Item Value Reference Range Interpretation [...] = 2801) RAD, CHEST, 1 VIEW, NON [id number] 12:44:00Reason for exam:->CHEST PAIN FINAL REPORT Chest x-ray Clinical History: CHEST PAIN Comparison: November 27, 2017 Views: One AP lordotic Chest x-ray:The cardiac and mediastinal silhouettes are enlarged with a left ventricular configuration. There is no evidence of [...] tiny left pleural effusion. Signed: Suki Woody MDReportVerified Date/Time: 12/07/2017 12:44:27 Reading Location: [address] Radiology Reading Room CREATINE KINASE (CK), TOTAL AND [id number] 02:36:00 Test Item Value Reference Range Interpretation [...] acute neurological disease, and persistent tachyarrhythmia.COMPREHENSIVE METABOLIC [id number] 02:28:00 Test Item Value Reference Range Interpretation [...] PATIEN TS. CBC W/PLT COUNT & AUTO [id number] 02:14:00 Test Item Value Reference Range Interpretation [...] PERCENT (BEAKER) (test code = 2801) KETONE, [id number] 01:55:00 Test Item Value Reference Range Interpretation Comments KETONES, BLOOD (BEAKER) (test code 0.2 mmol/L <0.4 = 1103) RAD, CHEST, 1 VIEW, NON [id number] 01:46:00Reason for exam:->pacemaker placement,pt feels it was dislodgedShould this be performed at the bed side?->YesFINAL REPORT History: Pacemaker placement. Comparison: 09/08/2017 Findings: A single view of the chest is submitted. A left subclavian, dual-lead pacemaker is stable in position andappearance. The cardiac silhouette is stable in its enlargement. There is central pulmonary vascular congestion. Bilateral perihilar interstitial opacity suggests pulmonary interstitial edema. There isno focal consolidation, large pleural effusion, pneumothorax or acute bony abnormality. Signed: Shraddha Stanley MDReport Verified Date/Time: 11/27/2017 01:46:38 Reading Location: [address] Reading Room POCT- GLUCOSE [id number] 13:29:00 Test Item Value Reference Range Interpretation Comments POC-GLUCOSE METER 214 mg/dL 70-110 H TESTED AT [facility] [address] (BEAKER) (test code [facility] [place] = 1538) [address] BASIC METABOLIC [id number] 06:48:00 Test Item Value Reference Range Interpretation [...] PATIEN TS. CBC W/PLT COUNT & AUTO [id number] 06:23:00 Test Item Value Reference Range Interpretation [...] L 0.00-0.20 (test code = 417) POCT-GLUCOSE [id number] 06:20:00 Test Item Value Reference Range Interpretation Comments POC-GLUCOSE METER 184 mg/dL 70-110 H TESTED AT [facility] [address] [place] ([facility]) (test code [facility] [place] = 1538) [address] POCT-GLUCOSE [id number] 20:47:00 Test Item Value Reference Range Interpretation Comments POC-GLUCOSE METER 323 mg/dL 70-110 H Notified Becky Mancini MD/[facility]ED AT [facility] (test code [facility] [address] [place] POINT = 1538) [facility] [address] POCT-GLUCOSE [id number] 16:55:00 Test Item Value Reference Range Interpretation Comments POC-GLUCOSE METER 320 mg/dL 70-110 H TESTED AT [facility] [address] (BEAKER) (test code [facility] [place] = 1533) [address] B-TYPE NATRIURETIC FACTOR (BNP)2017-09-08 11:28:00 Test Item Value Reference Range Interpretation Comments B-TYPE NATRIURETIC PEPTIDE (BEAKER) 800 pg/mL 0-100 H (test code = 700) TROPONIN [id number] 11:25:00 Test Item Value Reference Range Interpretation [...] acute neurological disease, and persistent tachyarrhythmia.BASIC METABOLIC [id number] 11:17:00 Test Item Value Reference Range Interpretation [...] S NOT APPLICABLE FOR DIALYSIS PATIEN TS. [id number] 11:15:00 Test Item Value Reference Range Interpretation [...] (Auto Output)Final Information (Auto Output)Final Information (Auto Output)[id number] 11:11:00 Test Item Value Reference Range Interpretation Comments MAGNESIUM (BEAKER) (test code = 2.0 mg/dL 1.5-3.0 627) RAD, CHEST, 1 VIEW, NON [id number] 10:55:00Reason for exam:->chest pain FINAL REPORT CLINICAL HISTORY: chest pain TECHNIQUE: 1 view of the chest. COMPARISON: 06/10/2017 IMPRESSION: There is new pulmonary vascular congestion without lobar consolidation. There is blunting of the left costophrenic angle. The cardiomediastinal silhouette is magnified by technique with a pacemaker. Signed: Sia Hensley MDReport Verified Date/Time: 09/08/2017 10:55:33 [facility] CBC W/PLT COUNT & AUTO [id number] 10:47:00 Test Item Value Reference Range Interpretation [...] 0.00-0.20 (test code = 417) HIV-1 PCR, [id number] 05:37:00 Test Item Value Reference Range Interpretation Comments HIV-1 RESULT HIV RNA not detected HIV RNA not detected COMPONENT (BEAKER) (test code = 2703) This test uses a Real-Time Polymerase Chain Reaction (RT-PCR) methodology to detect a highly conserved region of the HIV-1 gag gene and was performed using the JENNIFER AmpliPrep/JENNIFER TaqMan HIV-1 test kit version 2.0 ([employer]Reportable range for this assay is 20 - 10,000,000 copies per mL (1.3 - 7.0 Log copies/mL).DOUBLE-STRANDED DNA (DSDNA) [id number] 10:04:00 Test Item Value Reference Range Interpretation Comments ANTI-DNA DS (BEAKER) (test code = Negative 1055) TIFF TITER AND [id number] 11:54:00 Test Item Value Reference Range Interpretation Comments TIFF TITER (BEAKER) (test code = :160 1541) TIFF PATTERN (BEAKER) (test code = Homogeneous 1781) ANTI-NUCLEAR ANTIBODY (TIFF)2017-06-14 11:53:00 Test Item Value Reference Range Interpretation Comments ANTI-NUCLEAR ANTIBODY (TIFF) (BEAKER) Positive Negative A (test code = 418) POCT-GLUCOSE [id number] 05:52:00 Test Item Value Reference Range Interpretation Comments POC-GLUCOSE METER 96 mg/dL 70-110 TESTED AT [address] ([facility]) (test code = [facility] 153) [address] BASIC METABOLIC [id number] 05:15:00 Test Item Value Reference Range Interpretation [...] NOT APPLICABLE FOR DIALYSIS PATIEN TS. POCT-GLUCOSE [id number] 05:09:00 Test Item Value Reference Range Interpretation Comments POC-GLUCOSE METER 67 mg/dL 70-110 L TESTED AT [address] ([facility]) (test code = [facility] 1538) [address] POCT-GLUCOSE [id number] 21:55:00 Test Item Value Reference Range Interpretation Comments POC-GLUCOSE METER 142 mg/dL 70-110 H TESTED AT [address] ([facility]) (test code [facility] [place] = 1538) [address] POCT-GLUCOSE [id number] 19:05:00 Test Item Value Reference Range Interpretation Comments POC-GLUCOSE METER 139 mg/dL 70-110 H TESTED AT [address] ([facility]) (test code [facility] [place] = 1538) [address] POCT-GLUCOSE [id number] 16:54:00 Test Item Value Reference Range Interpretation Comments POC-GLUCOSE METER 59 mg/dL 70-110 L TESTED AT [address] ([facility]) (test code = [facility] [place] 1538) [address] POCT-GLUCOSE [id number] 13:19:00 Test Item Value Reference Range Interpretation Comments POC-GLUCOSE METER 235 mg/dL 70-110 H TESTED AT [address] ([facility]) (test code [facility] [place] = 1538) [address] POCT-GLUCOSE [id number] 06:52:00 Test Item Value Reference Range Interpretation Comments POC-GLUCOSE METER 113 mg/dL 70-110 H TESTED AT [address] ([facility]) (test code [facility] [place] = 1538) [address] POCT-GLUCOSE [id number] 21:48:00 Test Item Value Reference Range Interpretation Comments POC-GLUCOSE METER 183 mg/dL 70-110 H TESTED AT [address] ([facility]) (test code [facility] [place] = 1538) [address] POCT-GLUCOSE [id number] 17:22:00 Test Item Value Reference Range Interpretation Comments POC-GLUCOSE METER 262 mg/dL 70-110 H TESTED AT [address] ([facility]) (test code [facility] [place] = 1538) [address] POCT-GLUCOSE [id number] 12:30:00 Test Item Value Reference Range Interpretation Comments POC-GLUCOSE METER 131 mg/dL 70-110 H TESTED AT [address] ([facility]) (test code [facility] [place] = 1538) [address] MICROALBUMIN, RANDOM [id number] 12:25:00 Test Item Value Reference Range Interpretation Comments MICROALBUMIN URINE (BEAKER) (test 59.0 mg/dL code = 1794) Reference Range: No NormalsHEPATITIS PANEL, [id number] 11:31:00 Test Item Value Reference Range Interpretation Comments HEPATITIS A IGM ANTIBODY (BEAKER) Nonreactive Nonreactive (test code = 498) HEPATITIS B CORE IGM ANTIBODY Nonreactive Nonreactive (BEAKER) (test code = 645) HEPATITIS C ANTIBODY (BEAKER) Nonreactive Nonreactive (test code = 367) HEPATITIS B SURFACE ANTIGEN (2) Nonreactive Nonreactive (BEAKER) (test code = 2585) COMPLEMENT COMPONENT [id number] 11:09:00 Test Item Value Reference Range Interpretation Comments C4 COMPLEMENT (BEAKER) (test code = 28 mg/dL 15-57 394) COMPLEMENT COMPONENT [id number] 11:09:00 Test Item Value Reference Range Interpretation Comments C3 COMPLEMENT (BEAKER) (test code = 145 mg/dL 82-193 393) POCT-GLUCOSE [id number] 06:48:00 Test Item Value Reference Range Interpretation Comments POC-GLUCOSE METER 75 mg/dL 70-110 TESTED AT [facility] (BEAKER) (test code = [address] [facility] 1538) [address] TROPONIN [id number] 05:58:00 Test Item Value Reference Range Interpretation [...] acute neurological disease, and persistent tachyarrhythmia.BASIC METABOLIC [id number] 05:49:00 Test Item Value Reference Range Interpretation [...] S NOT APPLICABLE FOR DIALYSIS PATIEN TS. [id number] 05:48:00 Test Item Value Reference Range Interpretation Comments [facility] (test code = 4.2 mg/dL 2.5-4.5 604) POCT-GLUCOSE [id number] 21:18:00 Test Item Value Reference Range Interpretation Comments POC-GLUCOSE METER 146 mg/dL 70-110 H TESTED AT [address] ([facility]) (test code [address] [facility] = 1538) [address] TROPONIN [id number] 18:26:00 Test Item Value Reference Range Interpretation [...] acidosis, acute neurological disease, and persistent tachyarrhythmia.POCT-GLUCOSE [id number] 17:07:00 Test Item Value Reference Range Interpretation Comments POC-GLUCOSE METER 97 mg/dL 70-110 TESTED AT [address] ([facility]) (test code = [address] [facility] 1538) [address] POCT-GLUCOSE [id number] 13:31:00 Test Item Value Reference Range Interpretation Comments POC-GLUCOSE METER 125 mg/dL 70-110 H TESTED AT [place] [address] [place] (BEAKER) (test code [facility] [place] = 1538) [address] TROPONIN [id number] 06:11:00 Test Item Value Reference Range Interpretation [...] acidosis, acute neurological disease, and persistent tachyarrhythmia.LIPID [id number] 06:05:00 Test Item Value Reference Range Interpretation Comments TRIGLYCERIDES (BEAKER) (test code = 75 mg/dL 540) CHOLESTEROL (BEAKER) (test code = 174 mg/dL 631) HDL CHOLESTEROL (BEAKER) (test code 26 mg/dL = 976) LDL CHOLESTEROL CALCULATED (BEAKER) 133 mg/dL (test code = 633) Triglyceride Reference Range: Low Risk <150 Borderline 150-199 High Risk 200- 499 Very High Risk >=500Cholesterol Reference Range: Low Risk <200 Borderline 200-239 High Risk >240HDL Cholesterol Reference Range: Low Risk >=60 High Risk <40LDL Cholesterol Reference Range: Optimal <100 Near Optimal 100-129 Borderline 130-159 High 160-189 Very High >=190BASIC METABOLIC [id number] 06:03:00 Test Item Value Reference Range Interpretation [...] S NOT APPLICABLE FOR DIALYSIS PATIEN TS. [id number] 05:57:00 Test Item Value Reference Range Interpretation Comments MAGNESIUM (BEAKER) (test code = 1.9 mg/dL 1.5-3.0 627) HEMOGLOBIN [id number] 05:56:00 Test Item Value Reference Range Interpretation Comments HEMOGLOBIN A1C (BEAKER) (test code = 7.7 % 4.3-6.1 H 368) CBC W/PLT COUNT & AUTO [id number] 05:31:00 Test Item Value Reference Range Interpretation [...] L 0.00-0.20 (test code = 417) TROPONIN [id number] 22:53:00 Test Item Value Reference Range Interpretation [...] acute neurological disease, and persistent tachyarrhythmia.U/S, ABDOMINAL, [id number] 22:08:00Reason for exam:->AscitesReason for exam:->BLOATEDFINAL REPORT U/S, ABDOMINAL, COMPLETE INDICATION: "AscitesBLOATED" COMPARISON: None. TECHNIQUE: Real-time transabdominal alvarez scale and color Doppler ultrasound of the abdomen. FINDINGS:Visualized portion of the pancreas is normal.Normal liver echotexture and echogenicity without a discrete mass or intrahepatic bile duct dilation.Normal caliber CBD at 4 mm.Gallbladder is contracted. No cholelithiasis. No pericholecystic fluid.Sonographic Rob's sign is negative.Visualized portions of the kidneys are unremarkable without obvious hydronephrosis.Borderline splenomegaly at 13 cm.The visualized portions of the IVC and aorta are unremarkable. IMPRESSION: Contracted gallbladder.Bord alisha splenomegaly.No ascites. Signed: Suzan Phillips MDReport Verified Date/Time: 06/10/2017 22:08:13 Reading Location: [address] Reading Room ALYSIS W/ REFLEX URINE [id number] 18:41:00 Test Item Value Reference Range Interpretation [...] code = 1663) SOURCE(BEAKER) (test code = 7035) TROPONIN [id number] 13:07:00 Test Item Value Reference Range Interpretation [...] H (test code = 700) HEPATIC FUNCTION [id number] 12:59:00 Test Item Value Reference Range Interpretation [...] (test code = 23 U/L 5-50 347) [id number] 12:59:00 Test Item Value Reference Range Interpretation Comments LIPASE (BEAKER) (test code = 749) 19 U/L 6-51 BASIC METABOLIC [id number] 12:57:00 Test Item Value Reference Range Interpretation [...] PATIEN TS. CBC W/PLT COUNT & AUTO [id number] 12:37:00 Test Item Value Reference Range Interpretation [...] = 417) RAD, CHEST, 1 VIEW, NON [id number] 12:32:00Reason for exam:->shortness of breathReason for exam:->BLOATEDShould [facility] be performed [facility]?->YesFINAL REPORT Comparison: 04/06/2012 TECHNIQUE: Single view of the chest FINDINGS:Lung volumes are low. Prominence of the cardiac silhouette and vasculature which may be related to poor inspiration and technique . There is no gross consolidation identified. No overt edema or large pleural effusion. Left-sided pacing device noted. No acute skeletal abnormality. Signed: Gab Bonilla MDReport Verified Date/Time: 06/10/2017 12:32:49 Reading Location: [facility] Radiology Reading Room POCT-GLUCOSE [id number] 07:40:00 Test Item Value Reference Range Interpretation Comments POC-GLUCOSE METER 100 mg/dL 70-110 TESTED AT [address] ([facility]) (test code [facility] [place] = 1538) [address] POCT-GLUCOSE [id number] 06:57:00 Test Item Value Reference Range Interpretation Comments POC-GLUCOSE METER 50 mg/dL 70-110 L TESTED AT [address] (BEAKER) (test code = [facility]) [address] POCT-GLUCOSE [id number] 20:59:00 Test Item Value Reference Range Interpretation Comments POC-GLUCOSE METER 142 mg/dL 70-110 H TESTED AT [address] ([facility]) (test code [facility] [place] = 1538) [address] POCT-GLUCOSE [id number] 17:23:00 Test Item Value Reference Range Interpretation Comments POC-GLUCOSE METER 123 mg/dL 70-110 H TESTED AT [address] ([facility]) (test code [facility] [place] = 1538) [address] POCT-GLUCOSE [id number] 12:38:00 Test Item Value Reference Range Interpretation Comments POC-GLUCOSE METER 153 mg/dL 70-110 H TESTED AT [address] ([facility]) (test code [facility] [place] = 1538) [address] BASIC METABOLIC [id number] 05:49:00 Test Item Value Reference Range Interpretation [...] NOT APPLICABLE FOR DIALYSIS PATIEN TS. POCT-GLUCOSE [id number] 05:36:00 Test Item Value Reference Range Interpretation Comments POC-GLUCOSE METER 74 mg/dL 70-110 TESTED AT [address] ([facility]) (test code = [facility] 1538) [address] CBC W/PLT COUNT & AUTO [id number] 05:29:00 Test Item Value Reference Range Interpretation [...] L 0.00-0.20 (test code = 417) POCT-GLUCOSE [id number] 19:53:00 Test Item Value Reference Range Interpretation Comments POC-GLUCOSE METER 120 mg/dL 70-110 H TESTED AT [address] ([facility]) (test code [facility] [place] = 1538) [address] POCT-GLUCOSE [id number] 15:41:00 Test Item Value Reference Range Interpretation Comments POC-GLUCOSE METER 135 mg/dL 70-110 H TESTED AT [address] ([facility]) (test code [facility] [place] = 1538) [address] RAD, CHEST, 1 VIEW, NON [id number] 12:31:00Reason for exam:->follow up FINAL REPORT COMPARISON: 04/03/2017 TECHNIQUE: Single view of the chest FINDINGS:Small left pleural effusion with adjacent airspace disease. There is mild vascular congestion elsewhere. Cardiac silhouette is enlarged. Left-sided pacing device noted. Signed: Gab Bonilla MDReport Verified Date/Time: 04/06/2017 12:31:34 Reading Location: [facility] Radiology Reading Room POCT-GLUCOSE [id number] 11:39:00 Test Item Value Reference Range Interpretation Comments POC-GLUCOSE METER 184 mg/dL 70-110 H TESTED AT [address] ([facility]) (test code [facility] [place] = 1538) [address] POCT-GLUCOSE [id number] 07:18:00 Test Item Value Reference Range Interpretation Comments POC-GLUCOSE METER 83 mg/dL 70-110 TESTED AT [address] ([facility]) (test code = [address] [facility] [place] 1538) [address] BASIC METABOLIC [id number] 06:01:00 Test Item Value Reference Range Interpretation [...] = 700) CBC W/PLT COUNT & AUTO [id number] 05:39:00 Test Item Value Reference Range Interpretation [...] L 0.00-0.20 (test code = 417) POCT-GLUCOSE [id number] 21:56:00 Test Item Value Reference Range Interpretation Comments POC-GLUCOSE METER 144 mg/dL 70-110 H TESTED AT [address] ([facility]) (test code [facility] [place] = 1538) [id number] POCT-GLUCOSE [id number] 16:38:00 Test Item Value Reference Range Interpretation Comments POC-GLUCOSE METER 153 mg/dL 70-110 H TESTED AT [address] ([facility]) (test code [facility] [place] = 1538) [id number] POCT-GLUCOSE [id number] 12:52:00 Test Item Value Reference Range Interpretation Comments POC-GLUCOSE METER 144 mg/dL 70-110 H TESTED AT [address] ([facility]) (test code [facility] [place] = 1538) [address] POCT-GLUCOSE [id number] 06:07:00 Test Item Value Reference Range Interpretation Comments POC-GLUCOSE METER 124 mg/dL 70-110 H TESTED AT [address] ([facility]) (test code [facility] [place] = 1538) [address] BASIC METABOLIC [id number] 05:26:00 Test Item Value Reference Range Interpretation [...] S NOT APPLICABLE FOR DIALYSIS PATIEN TS. [id number] 05:20:00 Test Item Value Reference Range Interpretation Comments MAGNESIUM (BEAKER) (test code = 2.4 mg/dL 1.5-3.0 627) CBC W/PLT COUNT & AUTO [id number] 05:19:00 Test Item Value Reference Range Interpretation [...] L 0.00-0.20 (test code = 417) POCT-GLUCOSE [id number] 19:59:00 Test Item Value Reference Range Interpretation Comments POC-GLUCOSE METER 198 mg/dL 70-110 H TESTED AT [address] ([facility]) (test code [facility] [place] = 1538) [id number] POCT-GLUCOSE [id number] 16:34:00 Test Item Value Reference Range Interpretation Comments POC-GLUCOSE METER 230 mg/dL 70-110 H TESTED AT [address] ([facility]) (test code [facility] [place] = 1538) [address] POCT-GLUCOSE [id number] 13:02:00 Test Item Value Reference Range Interpretation Comments POC-GLUCOSE METER 273 mg/dL 70-110 H TESTED AT [address] ([facility]) (test code [facility] [place] = 1538) [address] B-TYPE NATRIURETIC FACTOR (BNP)2017-04-04 06:55:00 Test Item Value Reference Range Interpretation Comments B-TYPE NATRIURETIC PEPTIDE (BEAKER) 824 pg/mL 0-100 H (test code = 700) BASIC METABOLIC [id number] 06:47:00 Test Item Value Reference Range Interpretation [...] S NOT APPLICABLE FOR DIALYSIS PATIEN TS. [id number] 06:41:00 Test Item Value Reference Range Interpretation Comments MAGNESIUM (BEAKER) (test code = 2.2 mg/dL 1.5-3.0 627) CBC W/PLT COUNT & AUTO [id number] 06:32:00 Test Item Value Reference Range Interpretation [...] 0-100 H (test code = 700) TROPONIN [id number] 12:05:00 Test Item Value Reference Range Interpretation [...] neurological disease, and persistent tachyarrhythmia.RAD, CHEST, 2 [id number] 11:59:00 Reason for exam:->SOBFINAL REPORT History: Shortness of breath Comparison: 03/27/2017, 02/04/2017, 12/01/2016, 01/14/2016 Findings: There is chronic scarring in the left perihilar region. There is chronicscarring with adjacent pleural thickening at the left lateral costophrenic sulcus. There is prominence of the pulmonary vascularity with hazy perihilar opacity which may reflect mild edema. Cardiac shadow normal in size. Left subclavian transvenous cardiac pacing hardware is present, with leads in theregion of the right atrium and right ventricle. No pneumothorax. IMPRESSION: Question mild pulmonaryedema. Signed: Malcolm Garcia MDReport Verified Date/Time: 04/03/2017 11:59:26 Reading Location: [address] Ortho Consult Reading Room BASIC METABOLIC [id number] 11:57:00 Test Item Value Reference Range Interpretation [...] PATIEN TS. CBC W/PLT COUNT & AUTO [id number] 11:42:00 Test Item Value Reference Range Interpretation [...] = 417) RAD, CHEST, 1 VIEW, NON [id number] 11:12:00Reason for exam:->follow up FINAL REPORT Chest, 1 view Clinical history: follow up Comparison: 03/25/2017 Discussion: Left-sided pacemaker in position without pneumothorax. Small left pleural effusion is seenwith atelectasis. The cardiac silhouette is enlarged with mild perihilar edema. No acute osseous abnormality. Signed: Jamir Mai MDReport Verified Date/Time: 03/27/2017 11:12:12 Reading Location: [facility] [id number] Ortho Consult Reading Room TROPONIN [id number] 08:29:00 Test Item Value Reference Range Interpretation [...] = 700) CREATINE KINASE (CK), TOTAL AND [id number] 08:27:00 Test Item Value Reference Range Interpretation Comments CREATINE KINASE TOTAL (BEAKER) 303 U/L 40-250 H (test code = 380) CREATINE KINASE-MB (BEAKER) (test 5.9 ng/mL 0.0-4.9 H code = 750) CREATINE KINASE-MB INDEX (BEAKER) 1.9 % (test code = 395) CK-MB Reference Range:<5 Normal5-10 Borderline>10 AbnormalBASIC METABOLIC [id number] 08:18:00 Test Item Value Reference Range Interpretation [...] PATIEN TS. CBC W/PLT COUNT & AUTO [id number] 07:44:00 Test Item Value Reference Range Interpretation [...] L 0.00-0.20 (test code = 417) POCT-GLUCOSE [id number] 05:54:00 Test Item Value Reference Range Interpretation Comments POC-GLUCOSE METER 226 mg/dL 70-110 H TESTED AT [address] ([facility]) (test code [facility] [place] = 1538) [id number] POCT-GLUCOSE [id number] 20:54:00 Test Item Value Reference Range Interpretation Comments POC-GLUCOSE METER 180 mg/dL 70-110 H TESTED AT [address] ([facility]) (test code [facility] [place] = 1538) 360[address] POCT-GLUCOSE [id number] 16:40:00 Test Item Value Reference Range Interpretation Comments POC-GLUCOSE METER 262 mg/dL 70-110 H TESTED AT [address] ([facility]) (test code [facility] [place] = 1538) [address] LIPID [id number] 15:41:00 Test Item Value Reference Range Interpretation Comments TRIGLYCERIDES (BEAKER) (test code = 86 mg/dL 540) CHOLESTEROL (BEAKER) (test code = 203 mg/dL 631) HDL CHOLESTEROL (BEAKER) (test code 33 mg/dL = 976) LDL CHOLESTEROL CALCULATED (AKER) 153 mg/dL (test code = 633) Triglyceride Reference Range: Low Risk <150 Borderline 150-199 High Risk 200- 499 Very High Risk >=500Cholesterol Reference Range: Low Risk <200 Borderline 200-239 High Risk >240HDL Cholesterol Reference Range: Low Risk >=60 High Risk <40LDL Cholesterol Reference Range: Optimal <100 Near Optimal 100-129 Borderline 130-159 High 160-189 Very High >=190TSH/FREE T4 IF [id number] 15:27:00 Test Item Value Reference Range Interpretation Comments THYROID STIMULATING HORMONE 4.34 uIU/mL 0.35-5.50 (BEAKER) (test code = 772) TROPONIN [id number] 15:18:00 Test Item Value Reference Range Interpretation Comments TROPONIN I (BEAKER) (test code = 0.54 ng/mL 0.00-0.15 397) Troponin I (TnI) levels [...] H (test code = 700) BASIC METABOLIC [id number] 15:03:00 Test Item Value Reference Range Interpretation [...] NOT APPLICABLE FOR DIALYSIS PATIEN TS. HEMOGLOBIN [id number] 08:23:00 Test Item Value Reference Range Interpretation Comments HEMOGLOBIN A1C (BEAKER) (test code = 8.8 % 4.3-6.1 H 368) CBC W/PLT COUNT & AUTO [id number] 07:23:00 Test Item Value Reference Range Interpretation [...] L 0.00-0.20 (test code = 417) POCT-GLUCOSE [id number] 06:53:00 Test Item Value Reference Range Interpretation Comments POC-GLUCOSE METER 176 mg/dL 70-110 H TESTED AT [address] ([facility]) (test code [facility] = 1538) [address] TROPONIN [id number] 23:25:00 Test Item Value Reference Range Interpretation [...] 395) CK-MB Reference Range:<5 Normal5-10 Borderline>10 AbnormalPOCT-GLUCOSE [id number] 20:54:00 Test Item Value Reference Range Interpretation Comments POC-GLUCOSE METER 157 mg/dL 70-110 H TESTED AT [place] [id number] [facility] (test code [facility] [place] = 1538) [address] TROPONIN [id number] 14:46:00 Test Item Value Reference Range Interpretation Comments TROPONIN I (CECILIO) (test code = 0.60 ng/mL 0.00-0.15 HH [...] 0-100 H (test code = 700) PROTHROMBIN [id number] 14:42:00 Test Item Value Reference Range Interpretation Comments PROTIME (CECILIO) (test code = 11.4 seconds 9.3-12.0 759) INR (CECILIO) (test code = 370) 1.1 <=5.9 RECOMMENDED COUMADIN/WARFARIN INR THERAPY RANGESSTANDARD DOSE: 2.0 - 3.0 Includes: PROPHYLAXIS for venous thrombosis, systemic embolization; TREATMENT for venous thrombosis and/or pulmonary embolus.HIGH RISK: Target INR is 2.5-3.5 for patients with mechanical heart valves.[id number] 14:42:00 Test Item Value Reference Range Interpretation Comments PARTIAL THROMBOPLASTIN TIME 27.0 seconds 23.0-35.0 (CECILIO) (test code = 760) CREATINE KINASE (CK), TOTAL AND [id number] 14:41:00 Test Item Value Reference Range Interpretation Comments CREATINE KINASE TOTAL (BEAKER) 328 U/L 40-250 H (test code = 380) CREATINE KINASE-MB (BEAKER) (test 5.9 ng/mL 0.0-4.9 H code = 750) CREATINE KINASE-MB INDEX (BEAKER) 1.8 % (test code = 395) CK-MB Reference Range:<5 Normal5-10 Borderline>10 AbnormalCOMPREHENSIVE METABOLIC [id number] 14:34:00 Test Item Value Reference Range Interpretation [...] PATIEN TS. CBC W/PLT COUNT & AUTO [id number] 14:04:00 Test Item Value Reference Range Interpretation [...] = 417) RAD, CHEST, 1 VIEW, NON [id number] 13:52:00Reason for exam:->SHORTNESS OF BREATHReason for exam:->EDEMAShould [...] MDReport Verified Date/Time: 03/25/2017 13:52:22 Reading Location: [facility] Radiology Reading Room POCT- GLUCOSE [id number] 12:04:00 Test Item Value Reference Range Interpretation Comments POC-GLUCOSE METER 171 mg/dL 70-110 H TESTED AT [address] ([facility]) (test code [facility] [place] = 1538) [address] BASIC METABOLIC [id number] 08:14:00 Test Item Value Reference Range Interpretation [...] PATIEN TS. CBC W/PLT COUNT & AUTO [id number] 07:57:00 Test Item Value Reference Range Interpretation [...] (test code = 416) BASOPHILS ABSOLUTE COUNT ([facility]) 0.10 K/ L 0.00-0.20 (test code = 417) POCT-GLUCOSE [id number] 07:11:00 Test Item Value Reference Range Interpretation Comments POC-GLUCOSE METER 164 mg/dL 70-110 H TESTED AT [address] ([facility]) (test code [facility] [place] = 1538) [address]193 POCT-GLUCOSE [id number] 22:24:00 Test Item Value Reference Range Interpretation Comments POC-GLUCOSE METER 222 mg/dL 70-110 H TESTED AT [address] ([facility]) (test code [facility] [place] = 1538) [address] POCT-GLUCOSE [id number] 17:12:00 Test Item Value Reference Range Interpretation Comments POC-GLUCOSE METER 187 mg/dL 70-110 H TESTED AT [address] ([facility]) (test code [facility] [place] = 1538) [address]164 POCT-GLUCOSE [id number] 17:12:00 Test Item Value Reference Range Interpretation Comments POC-GLUCOSE METER 190 mg/dL 70-110 H TESTED AT [address] ([facility]) (test code [facility] [place] = 1538) 10096 POCT-GLUCOSE [id number] 05:55:00 Test Item Value Reference Range Interpretation Comments POC-GLUCOSE METER 181 mg/dL 70-110 H TESTED AT [address] ([facility]) (test code [facility] [place] = 1538) [address] POCT-GLUCOSE [id number] 21:23:00 Test Item Value Reference Range Interpretation Comments POC-GLUCOSE METER 305 mg/dL 70-110 H Baby teste d Mother ID ([facility]) (test code used/[facility] [place] [address] = 1538) [place] [address] [facility] [address] POCT-GLUCOSE [id number] 19:05:00 Test Item Value Reference Range Interpretation Comments POC-GLUCOSE METER 181 mg/dL 70-110 H TESTED AT [address] ([facility]) (test code [facility] [place] = 1538) [address] POCT-GLUCOSE [id number] 19:04:00 Test Item Value Reference Range Interpretation Comments POC-GLUCOSE METER 252 mg/dL 70-110 H TESTED AT [facility] [address] ([facility]) (test code [facility] [place] = 1538) [address] POCT-GLUCOSE [id number] 19:04:00 Test Item Value Reference Range Interpretation Comments POC-GLUCOSE METER 175 mg/dL 70-110 H TESTED AT [facility] ([facility]) (test code [facility] [place] = 1538) [address] POCT-GLUCOSE [id number] 06:14:00 Test Item Value Reference Range Interpretation Comments POC-GLUCOSE METER 212 mg/dL 70-110 H TESTED AT [facility] ([facility]) (test code [facility] [place] = 1538) [address] CREATINE KINASE (CK), TOTAL AND [id number] 03:39:00 Test Item Value Reference Range Interpretation Comments CREATINE KINASE TOTAL ([facility]) 174 U/L 40-250 (test code = 380) CREATINE KINASE-MB ([facility]) (test 4.7 ng/mL 0.0-4.9 code = 750) CREATINE KINASE-MB INDEX ([facility]) 2.7 % (test code = 395) CK-MB Reference Range:<5 Normal5-10 Borderline>10 AbnormalTROPONIN I 2017-02-05 03:39:00 Test Item Value Reference Range Interpretation Comments TROPONIN I ([facility]) (test code = 0.07 ng/mL [...] acidosis, acute neurological disease, and persistent tachyarrhythmia.LIPID [id number] 03:33:00 Test Item Value Reference Range Interpretation Comments TRIGLYCERIDES (BEAKER) (test code = 164 mg/dL 540) CHOLESTEROL (BEAKER) (test code = 217 mg/dL 631) HDL CHOLESTEROL (BEAKER) (test code 28 mg/dL = 976) LDL CHOLESTEROL CALCULATED (AKER) 156 mg/dL (test code = 633) Triglyceride Reference Range: Low Risk <150 Borderline 150-199 High Risk 200- 499 Very High Risk >=500Cholesterol Reference Range: Low Risk <200 Borderline 200-239 High Risk >240HDL Cholesterol Reference Range: Low Risk >=60 High Risk <40LDL Cholesterol Reference Range: Optimal <100 Near Optimal 100-129 Borderline 130-159 High 160-189 Very High >=190BASIC METABOLIC [id number] 03:31:00 Test Item Value Reference Range Interpretation [...] NOT APPLICABLE FOR DIALYSIS PATIEN TS. HEMOGLOBIN [id number] 03:30:00 Test Item Value Reference Range Interpretation Comments HEMOGLOBIN A1C (BEAKER) (test code = 9.7 % 4.3-6.1 H 368) CBC W/PLT COUNT & AUTO [id number] 03:18:00 Test Item Value Reference Range Interpretation [...] L 0.00-0.20 (test code = 417) POCT-GLUCOSE [id number] 21:13:00 Test Item Value Reference Range Interpretation Comments POC-GLUCOSE METER 285 mg/dL 70-110 H TESTED AT [facility] (BEAKER) (test code [facility] [place] = 1538) [address] POCT-GLUCOSE [id number] 21:13:00 Test Item Value Reference Range Interpretation Comments POC-GLUCOSE METER 288 mg/dL 70-110 H TESTED AT [facility] [address] (CE[facility]) (test code [facility] [place] = 1538) [address] CREATINE KINASE (CK), TOTAL AND [id number] 16:27:00 Test Item Value Reference Range Interpretation Comments CREATINE KINASE TOTAL (RAADAKER) 202 U/L 40-250 (test code = 380) CREATINE KINASE-MB (CECILIO) (test 7.3 ng/mL 0.0-4.9 H code = [...] and persistent tachyarrhythmia.RAD, CHEST, 1 VIEW, NON [id number] 09:17:00Reason for exam:->chest painFINAL REPORT Chest one view. Clinical history: chest pain Comparison: 2016 Discussion: A frontal chest is provided. Cardiac silhouette is mildly enlarged, as before. There is a left-sided dual-lead pacemaker in stable position. There is mild vascular congestion. No discrete consolidation is identified. There is persistent blunting of the left costophrenic angle and there is mild left basilar atelectasis. No pneumothorax. Osseous structures are intact. Signed: Lacie Gonzales Verified Date/Time: 02/04/2017 09:17:01 Reading Location[facility] Radiology ReadingRoom TROPONIN [id number] 09:14:00 Test Item Value Reference Range Interpretation [...] = 700) CREATINE KINASE (CK), TOTAL AND [id number] 09:13:00 Test Item Value Reference Range Interpretation Comments CREATINE KINASE TOTAL (BEAKER) 235 U/L 40-250 (test code = 380) CREATINE KINASE-MB (BEAKER) (test 6.0 ng/mL 0.0-4.9 H code = 750) CREATINE KINASE-MB INDEX (BEAKER) 2.6 % (test code = 395) CK-MB Reference Range:<5 Normal5-10 Borderline>10 AbnormalBASIC METABOLIC [id number] 09:05:00 Test Item Value Reference Range Interpretation [...] S NOT APPLICABLE FOR DIALYSIS PATIEN TS. [id number] 09:03:00 Test Item Value Reference Range Interpretation [...] is 2.5-3.5 for patients with mechanical heart valves.[id number] 09:00:00 Test Item Value Reference Range Interpretation Comments MAGNESIUM (BEAKER) (test code = 2.0 mg/dL 1.5-3.0 627) CBC W/PLT COUNT & AUTO [id number] 08:50:00 Test Item Value Reference Range Interpretation [...] = 700) CREATINE KINASE (CK), TOTAL AND [id number] 11:53:00 Test Item Value Reference Range Interpretation Comments CREATINE KINASE TOTAL (BEAKER) 228 U/L 40-250 (test code = 380) CREATINE KINASE-MB (BEAKER) (test 4.8 ng/mL 0.0-4.9 code = 750) CREATINE KINASE-MB INDEX (BEAKER) 2.1 % (test code = 395) CK-MB Reference Range:<5 Normal5-10 Borderline>10 AbnormalBASIC METABOLIC [id number] 11:52:00 Test Item Value Reference Range Interpretation [...] NOT APPLICABLE FOR DIALYSIS PATIEN TS. TROPONIN [id number] 11:40:00 Test Item Value Reference Range Interpretation [...] acidosis, acute neurological disease, and persistent tachyarrhythmia.PROTHROMBIN [id number] 10:16:00 Test Item Value Reference Range Interpretation Comments PROTIME (BEAKER) (test code = 10.9 seconds 9.3-12.0 759) INR (BEAKER) (test code = 370) 1.0 <=5.9 RECOMMENDED COUMADIN/WARFARIN INR THERAPY RANGESSTANDARD DOSE: 2.0 - 3.0 Includes: PROPHYLAXIS for venous thrombosis, systemic embolization; TREATMENT for venous thrombosis and/or pulmonary embolus.HIGH RISK: Target INR is 2.5-3.5 for patients with mechanical heart valves.CBC W/PLT COUNT & AUTO [id number] 10:06:00 Test Item Value Reference Range Interpretation [...] = 417) RAD, CHEST, 1 VIEW, NON [id number] 09:42:00Reason for exam:->SHORTNESS OF BREATHOn \\T\\ off shortness of breath since Wednesday.SOB exaerbatedby walkingShould this be performed at the bedside?->YesFINAL REPORT Comparison: 11/01/2016 TECHNIQUE: Single view of the chest FINDINGS: Increased interstitial markings bilaterally suggest mild vascular congestion. Small left pleural effusion with adjacent airspace disease identified. Lungs otherwise grossly clear. No pneumothorax. Cardiac silhouette is prominent. Left- sided pacing device noted. Signed: Gab Bonilla MDReport Verified Date/Time: 12/01/2016 09:42:01 Reading Location: [facility] Radiology Reading Room POCT-GLUCOSE [id number] 18:07:00 Test Item Value Reference Range Interpretation Comments POC-GLUCOSE METER 159 mg/dL 70-110 H TESTED AT [address] ([facility]) (test code [facility] [place] = 1538) [address] POCT-GLUCOSE [id number] 13:56:00 Test Item Value Reference Range Interpretation Comments POC-GLUCOSE METER 218 mg/dL 70-110 H TESTED AT [address] ([facility]) (test code [facility] [place] = 1538) [address] POCT-GLUCOSE [id number] 06:26:00 Test Item Value Reference Range Interpretation Comments POC-GLUCOSE METER 118 mg/dL 70-110 H TESTED AT [address] ([facility]) (test code [facility] [place] = 1538) [address] HEMOGLOBIN [id number] 02:55:00 Test Item Value Reference Range Interpretation Comments HEMOGLOBIN A1C ([facility]) (test code = 9.3 % 4.3-6.1 H 368) TROPONIN [id number] 02:45:00 Test Item Value Reference Range Interpretation Comments TROPONIN I ([facility]) (test code = 0.04 ng/mL [...] Low Risk <150 Borderline 150-199 High Risk 200- 499 Very High Risk >=500Cholesterol Reference Range: Low Risk <200 Borderline 200-239 High Risk >240HDL Cholesterol Reference Range: Low Risk >=60 High Risk <40LDL Cholesterol Reference Range: Optimal <100 Near Optimal 100-129 Borderline 130-159 High 160-189 Very High >=190BASIC METABOLIC [id number] 02:38:00 Test Item Value Reference Range Interpretation [...] PATIEN TS. CBC W/PLT COUNT & AUTO [id number] 02:37:00 Test Item Value Reference Range Interpretation [...] L 0.00-0.20 (test code = 417) POCT-GLUCOSE [id number] 21:41:00 Test Item Value Reference Range Interpretation Comments POC-GLUCOSE METER 222 mg/dL 70-110 H TESTED AT [address] ([facility]) (test code [facility] [place] = 1538) [id number] POCT-GLUCOSE [id number] 17:42:00 Test Item Value Reference Range Interpretation Comments POC-GLUCOSE METER 187 mg/dL 70-110 H TESTED AT [address] ([facility]) (test code [facility] [place] = 1538) [address] TROPONIN [id number] 17:08:00 Test Item Value Reference Range Interpretation [...] 395) CK-MB Reference Range:<5 Normal5-10 Borderline>10 AbnormalPOCT-GLUCOSE [id number] 12:19:00 Test Item Value Reference Range Interpretation Comments POC-GLUCOSE METER 284 mg/dL 70-110 H TESTED AT [address] [facility] (test code [facility] [place] = 1538) [address] URINALYSIS W/ REFLEX URINE [id number] 08:37:00 Test Item Value Reference Range Interpretation [...] 0-100 H (test code = 700) CALCIUM, [id number] 06:41:00 Test Item Value Reference Range Interpretation Comments CALCIUM IONIZED (BEAKER) (test 1.14 mmol/L 1.12-1.27 code = 698) PH, BLOOD (BEAKER) (test code = 7.43 1810) CREATINE KINASE (CK), TOTAL AND [id number] 06:14:00 Test Item Value Reference Range Interpretation [...] 0.00-0.20 (test code = 417) BASIC METABOLIC [id number] 06:08:00 Test Item Value Reference Range Interpretation [...] NOT APPLICABLE FOR DIALYSIS PATIEN TS. PROTHROMBIN [id number] 06:01:00 Test Item Value Reference Range Interpretation Comments PROTIME (BEAKER) (test code = 10.2 seconds 9.3-12.0 759) INR (BEAKER) (test code = 370) 1.0 <=5.9 RECOMMENDED COUMADIN/WARFARIN INR THERAPY RANGESSTANDARD DOSE: 2.0 - 3.0 Includes: PROPHYLAXIS for venous thrombosis, systemic embolization; TREATMENT for venous thrombosis and/or pulmonary embolus.HIGH RISK: Target INR is 2.5-3.5 for patients with mechanical heart valves.TROPONIN [id number] 05:35:00 Test Item Value Reference Range Interpretation [...] CK-MB Reference Range:<5 Normal5-10 Borderline>10 AbnormalBASIC METABOLIC [id number] 05:27:00 Test Item Value Reference Range Interpretation [...] PATIEN TS. CBC W/PLT COUNT & AUTO [id number] 05:11:00 Test Item Value Reference Range Interpretation [...]
[2021-10-29 17:52] LABS: Albumin 2.5 g/dL (3.4-5.0); Bilirubin Total 0.5 mg/dL (0.2-1.0); Potassium 3.8 mmol/L (3.5-5.1); Protein, Total 7.2 g/dL (6.4-8.2)
[2021-10-29] MEDS ORDERED: EPINEPHrine 1 MG/10 ML SYR ONE (17:52)
--- NOTE | 2021-10-29 18:06 | ER ---
Nurse's Notes [facility] Name: Binu Mcelroy Age: 45 yrs Sex: Male : 1975 Arrival Date: 10/29/2021 Time: 16:44 Bed 3 Private MD: Diagnosis: End stage renal disease-ON HD;Cardiac arrhythmia, unspecified-PEA;Cardiac arrest due to other underlying condition;Acute respiratory failure Presentation: 10/29 16:40 Chief complaint: EMS states: SPONTANEOUS CARDIOPULMONARY ARREST DURING DIALYSIS. bp Coronavirus screen: At this time, the client does not indicate any symptoms associated with coronavirus-19. Ebola Screen: No symptoms or risks identified at this time. Initial Sepsis Screen: Does the patient meet any 2 criteria? HR > 90 bpm. No. Patient's initial sepsis screen is negative. Does the patient have a suspected source of infection? No. Patient's initial sepsis screen is negative. Risk Assessment: Do you want to hurt yourself or someone else? Patient reports no desire to harm self or others. Onset of symptoms was October 29, 2021 at 16:10. Care prior to arrival: Assisted ventilation, Oral intubation, CPR via thumper performed by bystander performed by EMS Medication(s) given: EPI x2, KETAMINE 150MG IV initiated. 18 GA, in the left antecubital area, Glucose check: 135 Oxygen administered. via AMBU bag. 16:40 Method Of Arrival: EMS: [facility] bp 16:40 Acuity: CRISS 1 bp 16:40 Compressions began prior to arrival. bp Triage Assessment: 16:40 General: Appears distressed, Behavior is unresponsive. Pain: Unable to use pain scale. bp Patient is unresponsive. Historical: - Allergies: 16:40 NKDA; bp - Home Meds: 16:40 allopurinol 100 mg Oral tab 3 times per day [Active]; Bumex 1 mg Oral tab 1 tab 2 times bp per day [Active]; amlodipine oral [Active]; carvedilol 12.5 mg Oral tab 1 tab 2 times per day [Active]; clopidogrel 75 mg Oral tab once daily [Active]; gabapentin 800 mg Oral tab 1 tab 3 times per day [Active]; gabapentin Oral [Active]; glipizide 5 mg Oral tr24 1 tab once daily [Active]; Imdur Oral [Active]; Insulin: Regular Sub-Q [Active]; metolazone 5 mg Oral tab Q 2 days [Active]; ProAir HFA inhalation [Active]; Symbicort inhalation [Active]; - PMHx: 16:40 angina pectoris; Cerebrovascular accident; Myocardial infarction; Transient cerebral bp ischemia; diabetes mellitus; CHF; CVA; - PSHx: 16:40 Pacemaker/Defib; Heart Stents; bp - Immunization history:: Adult Immunizations unknown. - Social history:: Smoking status: unknown. - Family history:: not pertinent. Screenin:40 Abuse screen: CPR. Nutritional screening: No deficits noted. Tuberculosis screening: bp CPR. Fall Risk No fall in past 12 months (0 pts). Secondary diagnosis (15 points) CVA, IV access (20 points). Ambulatory Aid- None/Bed Rest/Nurse Assist (0 pts). Gait- Normal/Bed Rest/Wheelchair (0 pts) Mental Status- Overestimates/Forgets Limitations (15 pts.). Total Rudolph Fall Scale indicates High Risk Score (45 or more points). Fall prevention measures have been instituted. Side Rails Up X 2 Placed Close to Nursing Station Frequent Obs/Assessments Occuring. Assessment: 16:40 General: ROSC EN ROUTE. NO PULSE ON ARRIVAL. CPR STARTED. bp 16:40 CPR assessment: unresponsive, intubated, Ambu ventilation, pulses present w/ bp compressions. Cardiac rhythm is PEA. Neuro: Level of Consciousness is unresponsive, Oriented to none. EENT: No deficits noted. Cardiovascular: Rhythm is PEA. 16:45 General: EPI x1. bp 16:47 General: BICARB x1, CaCl2. bp 16:51 General: ROSC. BGL 277. bp 17:01 General: 4MG VERSED. bp 17:06 General: PEA, CPR, EPIx1. bp 17:07 General: CaCl2, BICARB. bp 17:08 General: VT 190. bp 17:09 General: DEFIB 200, EPI. bp 17:11 General: PEA. bp 17:13 General: PEA, EPI. bp 17:15 General: ROSC 127. bp 17:23 Reassessment: PEA ON MONITOR, CPR INITIATED. bp 17:24 Reassessment: EPI x1. bp 17:25 Reassessment: PULSE CHECK, PEA. bp 17:27 Reassessment: EPI x1, PEA ON PULSE CHECK. bp 17:29 Reassessment: ROSC. bp 17:43 Reassessment: PEA ON MONITOR, NO PULSE. CPR INITIATED. bp 17:45 Reassessment: ROSC. bp 17:46 Reassessment: LEVOPHED AT 5 MCG/MIN PER CVC. PER FATHER, PT NOT TO BE FURTHER bp RESUSCITATED. 17:50 Reassessment: Pt's father speaking to , pt's father asking for pt's cell aa5 phone, looked for cell phone and was not found, [employer] car keys found and given to pt's father (Alex Mcelroy), pt's father also notified that I was unable to find cell phone at this time and cell phone was possibly left at Dialysis, witnessed by Ty Monsalve RN. . 18:10 Reassessment: TIME OF . bp 18:40 Reassessment: [facility] AT B/S, PIERRE PENDING. bp 20:15 Reassessment: [facility] , pt not a candidate D/T pus filled vc1 lesions. Vital Signs: 16:40 BP 98 / 60; Pulse 135; bp 17:05 BP 172 / 52; Pulse 121; Resp 21; Temp 97.3; Pulse Ox 96% ; Weight 113.4 kg; bp 17:15 BP 171 / 119; Pulse 161; Resp 17; Temp 97.5; Pulse Ox 100% ; bp 17:45 BP 146 / 103; Pulse 137; Resp 20; Pulse Ox 95% ; bp ED Course: 16:40 Arm band placed on. bp 16:40 Allergy band placed. Placed in gown. Bed in low position. Call light in reach. Side bp rails up X2. Client placed on continuous cardiac and pulse oximetry monitoring. NIBP monitoring applied. 16:40 Maintain EMS IV. Dressing intact. Good blood return noted. Site clean \T\ dry. Gauge \T\ bp site: 18 G LEFT AC. 16:44 Patient arrived in ED. bd 16:52 Ty Morales, RN is Primary Nurse. bp 16:54 EKG done, by ED staff, reviewed by Baljinder Bennett MD. 3 16:55 Triage completed. bp 16:59 EKG done, by ED staff, reviewed by Baljinder Bennett MD. dh3 17:02 Assisted provider with central line placement. Set up central line tray. Triple lumen bp line placed in right femoral. Line placed by Baljinder Bennett MD Placement verified by blood return, Dressed with Tegaderm, Blood was collected. Patient tolerated UNRESPONSIVE. 17:22 Baljinder Bennett MD is Attending Physician. [facility] 18:00 Tremayne Palmer MD is Hospitalizing Provider. shahnaz 18:07 XRAY Chest (1 view) In Process Unspecified. EDMS 18:57 Baljinder Bennett MD is Pronouncing Provider. shahnaz Administered Medications: 17:50 Drug: NS 0.9% 1000 ml Route: IV; Rate: 125 ml/hr; Site: right femoral; bp 18:52 Follow up: IV Status: Order to discontinue infusion bp 18:00 Drug: Levophed (norepinephrine) 0.1 mcg/kg/min Route: IV; Rate: calculated rate; Site: bp right femoral; 18:53 Follow up: IV Status: Completed infusion bp Medication: 16:40 VIS not applicable for this client. bp Outcome: 18:05 Decision to Hospitalize by Provider. shahnaz 20:29 Patient left the ED. vc1 Signatures: Dispatcher [employer] EDMS Aga Mendez Corey, MD MD cha Calderon, Audri RN RN aa5 Rina Saleem [facility] Ty Morales, SHIREEN RN bp CalcDanielle matos RN RN vc1 Corrections: (The following items were deleted from the chart) 17:55 17:05 BP 172 / 52; Pulse 121bpm; Resp 21bpm; Pulse Ox 96%; bp bp 18:01 17:50 Reassessment: Pt's father speaking to , pt's father asking for pt's aa5 cell phone, looked for cell phone and was not found, [employer] car keys found and given to pt's father (Alex Mcelroy), pt's father also notified that I was unable to find cell phone at this time, witnessed by Ty Monsalve RN. . aa5
--- NOTE | 2021-10-29 18:06 | EDPHYS ---
Physician Documentation [facility] Name: Binu Mcelroy Age: 45 yrs Sex: Male : 1975 Arrival Date: 10/29/2021 Time: 16:44 Bed 3 Private MD: ED Physician Baljinder Bennett HPI: 10/29 18:33 This 45 yrs old Male presents to ER via EMS with complaints of COLLAPSES IN shahnaz DIALYSIS, CPR. 18:33 COLLAPSED IN DIALYSIS. shahnaz Historical: - Allergies: 16:40 NKDA; bp - Home Meds: 16:40 allopurinol 100 mg Oral tab 3 times per day [Active]; Bumex 1 mg Oral tab 1 tab 2 times bp per day [Active]; amlodipine oral [Active]; carvedilol 12.5 mg Oral tab 1 tab 2 times per day [Active]; clopidogrel 75 mg Oral tab once daily [Active]; gabapentin 800 mg Oral tab 1 tab 3 times per day [Active]; gabapentin Oral [Active]; glipizide 5 mg Oral tr24 1 tab once daily [Active]; Imdur Oral [Active]; Insulin: Regular Sub-Q [Active]; metolazone 5 mg Oral tab Q 2 days [Active]; ProAir HFA inhalation [Active]; Symbicort inhalation [Active]; - PMHx: 16:40 angina pectoris; Cerebrovascular accident; Myocardial infarction; Transient cerebral bp ischemia; diabetes mellitus; CHF; CVA; - PSHx: 16:40 Pacemaker/Defib; Heart Stents; bp - Immunization history:: Adult Immunizations unknown. - Social history:: Smoking status: unknown. - Family history:: not pertinent. ROS: 18:37 Unable to obtain ROS due to CPR IN PROGRESS. shahnaz Exam: 18:40 Head/face: Exam is negative for shahnaz 18:40 Eyes: Pupils: are fixed and dilated. 18:40 Cardiovascular: Rate: tachycardic, actual rate is 96 bpm, Rhythm: regular, Pulses: not palpable, Heart sounds: NO HEART SOUNDS , PEA ON ARRIVAL, JVD: is not appreciated. 18:48 ECG was reviewed by the Attending Physician. shahnaz 18:56 ECG was reviewed by the Attending Physician. shahnaz Vital Signs: 16:40 BP 98 / 60; Pulse 135; bp 17:05 BP 172 / 52; Pulse 121; Resp 21; Temp 97.3; Pulse Ox 96% ; Weight 113.4 kg; bp 17:15 BP 171 / 119; Pulse 161; Resp 17; Temp 97.5; Pulse Ox 100% ; bp 17:45 BP 146 / 103; Pulse 137; Resp 20; Pulse Ox 95% ; bp Procedures: 18:48 Central Line: the site was prepped with Betadine, in sterile fashion, a triple lumen shahnaz catheter was inserted, in the right femoral vein, in 1 attempts. placement was verified, by blood return, the site was dressed with using sterile technique, the patient tolerated the procedure, well. MDM: 17:23 Patient medically screened. shahnaz 17:58 Differential Diagnosis altered mental status, sepsis. Differential Diagnosis: CVA, shahnaz electrolyte abnormality, hypoglycemia, intracranial bleed, meningitis, overdose, pneumonia, seizure, sepsis, TIA, UTI, volume depletion. Data reviewed: vital signs, nurses notes, lab test result(s), EKG, radiologic studies, MRI. Data interpreted: equipment monitor phototypesetting: rate is 87 beats/min, rhythm is regular, Pulse oximetry: on room air is 95 %. Test interpretation: by ED physician or midlevel provider: ECG, plain radiologic studies. Counseling: I had a detailed discussion with the patient and/or guardian regarding: the historical points, exam findings, and any diagnostic results supporting the discharge/admit diagnosis, lab results, radiology results, the need for further work-up and treatment in the hospital. 10/29 17:04 Order name: Blood Culture Adult (2) [facility] 10/29 17:04 Order name: CBC with Diff; Complete Time: 17:49 [facility] 10/29 17:04 Order name: CMP [facility] 10/29 17:04 Order name: Lactate [facility] 10/29 17:04 Order name: Protime (+inr); Complete Time: 17:49 [facility] 10/29 17:04 Order name: Ptt, Activated; Complete Time: 17:49 [facility] 10/29 17:04 Order name: Glucose, Ancillary Testing; Complete Time: 17:49 [facility] 10/29 18:37 Order name: ABG Arterial Blood Gas [facility] 10/29 17:04 Order name: Accucheck; Complete Time: 17:04 [facility] 10/29 17:04 Order name: Cardiac monitoring; Complete Time: 17:04 [facility] 10/29 17:04 Order name: EKG - Nurse/Tech; Complete Time: 17:04 [facility] 10/29 17:04 Order name: IV Saline Lock - Large Bore; Complete Time: 17:04 [facility] 10/29 17:04 Order name: Labs collected and sent; Complete Time: 17:04 [facility] 10/29 17:04 Order name: O2 Per Protocol; Complete Time: 17:04 [facility] 10/29 17:04 Order name: O2 Sat Monitoring; Complete Time: 17:04 [facility] 10/29 17:50 Order name: XRAY Chest (1 view) [facility] 10/29 17:50 Order name: EKG; Complete Time: 17:50 [facility] 10/29 17:50 Order name: IV Saline Lock; Complete Time: 17:54 [facility] 10/29 17:50 Order name: Central Line Kit; Complete Time: 17:54 [facility] EC:48 Rate is 170 beats/min. Rhythm is irregularly irregular. QRS Sargents is Normal. DE interval shahnaz is normal. QRS interval is normal. QT interval is normal. No Q waves. T waves are Normal. No ST changes noted. Clinical impression: Cardiac ischemia and SVT. Interpreted by me. Reviewed by me. 18:56 Rate is 115 beats/min. Rhythm is regular. QRS Sargents is Normal. DE interval is normal. shahnaz QRS interval is normal. QT interval is normal. No Q waves. T waves are Normal. T waves are Inverted. Clinical impression: Sinus tachycardia. Interpreted by me. Reviewed by me. Administered Medications: 17:50 Drug: NS 0.9% 1000 ml Route: IV; Rate: 125 ml/hr; Site: right femoral; bp 18:52 Follow up: IV Status: Order to discontinue infusion bp 18:00 Drug: Levophed (norepinephrine) 0.1 mcg/kg/min Route: IV; Rate: calculated rate; Site: bp right femoral; 18:53 Follow up: IV Status: Completed infusion bp Disposition Summary: 10/29/21 18:59 Patient Location: Home(10/29/21 18:59) shahnaz Pronouncing Physician: Baljinder Bennett cha Time of : 18:10 10/29/2021 shahnaz Diagnosis - End stage renal disease - ON HD(10/29/21 18:59) shahnaz - Cardiac arrhythmia, unspecified - PEA shahnaz - Cardiac arrest due to other underlying condition shahnaz - Acute respiratory failure shahnaz Signatures: Dispatcher [employer] EDMS Aga Mendez Corey, MD MD cha Calderon, Audri RN RN aa5 Ty Morales RN RN bp Corrections: (The following items were deleted from the chart) 18:06 18:05 Inpatient Admission shahnaz shahnaz 18:06 18:05 Tremayne Palmer shahnaz shahnaz 18:06 18:05 Telemetry/MedSurg (Inpatient) shahnaz shahnaz 18:06 18:05 Fair shahnaz shahnaz 18:06 18:05 new shahnaz shahnaz 18:06 18:05 have improved shahnaz shahnaz 18:06 18:05 Standard shahnaz shahnaz 18:06 18:05 shahnaz shahnaz 18:06 18:05 Altered mental status, unspecified shahnaz shahnaz 18:06 18:05 Hypotension, unspecified shahnaz shahnaz 18:06 18:05 End stage renal disease - on HD shahnaz shahnaz 18:08 17:53 got hypotensive in dialysis and ams. shahnaz shahnaz 18:08 17:53 The patient presents with confusion, decreased mental status, decreased shahnaz responsiveness, disorientation, shahnaz 18: 17:53 Onset: The symptoms/episode began/occurred just prior to arrival, shahnaz shahnaz 18: 17:53 Possible causes: CVA or TIA, low blood sugar, seizure, sepsis, unknown, shahnaz shahnaz 18:08 17:53 Associated signs and symptoms: Pertinent positives: confusion, lightheadedness, shahnaz shortness of breath, weakness, shahnaz 18: 17:53 Current symptoms: In the emergency department the patient's symptoms have shahnaz improved, mildly, is more alert, is less confused, shahnaz 18: 17:53 Patient's baseline: Neuro: alert and fully oriented, shahnaz shahnaz 18:08 17:53 Severity of symptoms: At their worst the symptoms were moderate in the emergency shahnaz department the symptoms have improved moderately, shahnaz 18:08 17:53 The patient has experienced similar episodes in the past, several times, shahnaz shahnaz 18: 17:53 This 45 yrs old Black Male presents to ER via EMS with complaints of hypotension shahnaz and ams. shahnaz 18:09 17:53 Eyes: Negative for injury, pain, redness, and discharge, ENT: Negative for shahnaz injury, pain, and discharge, Neck: Negative for injury, pain, and swelling, Cardiovascular: Negative for chest pain, palpitations, and edema, Respiratory: Negative for shortness of breath, cough, wheezing, and pleuritic chest pain, Abdomen/GI: Negative for abdominal pain, nausea, vomiting, diarrhea, and constipation, Back: Negative for injury and pain, : Negative for injury, bleeding, discharge, and swelling, MS/Extremity: Negative for injury and deformity, Skin: Negative for injury, rash, and discoloration, [facility] 18: 17:53 Constitutional: Positive for body aches, fatigue, fever, malaise, [facility] 18: 17:53 Neuro: Positive for altered mental status, syncope, near syncope, weakness, [facility] 18: 17:53 Constitutional: This is a well developed, well nourished patient who is awake, shahnaz alert, and in no acute distress. Head/Face: Normocephalic, atraumatic. Eyes: Pupils equal round and reactive to light, extra-ocular motions intact. Lids and lashes normal. Conjunctiva and sclera are non-icteric and not injected. Cornea within normal limits. Periorbital areas with no swelling, redness, or edema. ENT: Nares patent. No nasal discharge, no septal abnormalities noted. Tympanic membranes are normal and external auditory canals are clear. Oropharynx with no redness, swelling, or masses, exudates, or evidence of obstruction, uvula midline. Mucous membranes moist. Neck: Trachea midline, no thyromegaly or masses palpated, and no cervical lymphadenopathy. Supple, full range of motion without nuchal rigidity, or vertebral point tenderness. No Meningismus. Chest/axilla: Normal chest wall appearance and motion. Nontender with no deformity. No lesions are appreciated. Cardiovascular: Regular rate and rhythm with a normal S1 and S2. No gallops, murmurs, or rubs. Normal PMI, no JVD. No pulse deficits. Respiratory: Lungs have equal breath sounds bilaterally, clear to auscultation and percussion. No rales, rhonchi or wheezes noted. No increased work of breathing, no retractions or nasal flaring. Back: No spinal tenderness. No costovertebral tenderness. Full range of motion. Skin: Warm, dry with normal turgor. Normal color with no rashes, no lesions, and no evidence of cellulitis. MS/ Extremity: Pulses equal, no cyanosis. Neurovascular intact. Full, normal range of motion. Psych: Awake, alert, with orientation to person, place and time. Behavior, mood, and affect are within normal limits. shahnaz 18: 17:53 Abdomen/GI: Inspection: distension, Bowel sounds: active, Palpation: nontender, shahnaz in all quadrants, Liver: no appreciated palpable abnormalities, Hernia: not appreciated, shahnaz 18: 17:53 ECG was reviewed by the Attending Physician. shahnaz shahnaz 18: 17:53 Rate is 87 beats/min. Rhythm is regular. QRS Sargents is Normal. DE interval is shahnaz shortened at 86 msec. QRS interval is normal. No Q waves. T waves are Normal. No ST changes noted. Clinical impression: NSR w/ Non-specific ST/T Changes and No evidence of ischemia. shahnaz 18:18 17:04 TYPE AND SCREEN+BB.LAB.BRZ ordered. EDMS EDMS 18:53 17:40 Labs - recollect needed ordered. bd bp 19:02 17:50 Head C Spine Cap Wo Con+CT.RAD.BRZ ordered. EDMS EDMS
--- NOTE | 2021-10-29 18:31 | RAD REPORT ---
EXAM DESCRIPTION: RAD - Chest Single View - 10/29/2021 6:05 pm CLINICAL HISTORY: COUGH, cardiopulmonary arrest COMPARISON: Portable 10/09/2021 TECHNIQUE: AP portable chest image was obtained 10/29/2021 6:05 pm . FINDINGS: Endotracheal tube is in place. NG/OG tube is in place extending below the diaphragm, off t he field of view. Endotracheal tube is in place appearing in good position well above the chaitanya. Right-sided double-lumen catheter is in place. Resuscitation paddles overlie lower left chest Size is prominent. Central vasculature and lung markings are prominent as well. Trachea is in the mid line. Pacemaker is in place. No measurable pleural effusion and no pneumothorax. No acute bony abnorm ality seen. No acute aortic findings suspected. IMPRESSION: Pulmonary edema pattern is present not necessarily abnormal in a patient that did not co mplete dialysis session. Endotracheal tube and NG tube in good position.
[2021-10-29 18:36] LABS: Arterial Blood Carboxyhemoglob 0.8 % (0-1.5); Blood Gas Oxyhemoglobin 97.9 % (94-97); Blood O2 Saturation 99.6 % (92-98.5)
[2021-10-29 20:42] VITALS: TEMP 97.5
[2021-10-29 20:44] VITALS: BP 146/103; O2SAT 95
--- NOTE | 2021-10-30 10:33 | EKG ---
Test Date: 2021-10-29 Test Time: 16:59:15 Slat Twister: PATIENCE MEASUREMENT RESULTS: Intervals: Rate: 115 KS: 134 QRSD: 100 QT: 342 QTc: 473 [place]: P: 67 KS: 134 QRS: -36 T: 79 INTERPRETIVE STATEMENTS: Sinus tachycardia with occasional premature ventricular complexes and fusion complexes Possible Left atrial enlargement Left axis deviation Pulmonary disease pattern Nonspecific ST and T wave abnormality Abnormal ECG Compared to ECG 10/07/2021 01:23:48 Fusion complex(es) now present ST (T wave) deviation now present Sinus rhythm no longer present Myocardial infarct finding no longer present Electronically Signed On 10-30-21 10:31:24 CDT by Dale East
== END 2021-10-29 20:29 | disposition expired ==
LOC: ER 16:42
PROC: 06HM33Z Insertion of Infusion Device into Right Femoral Vein, Percutaneous Approach (ICD-10-PCS; principal; 2021-10-29)
DX: J96.00 Acute respiratory failure, unspecified whether with hypoxia or hypercapnia (principal); I46.8 Cardiac arrest due to other underlying condition; I49.9 Cardiac arrhythmia, unspecified; E11.22 Type 2 diabetes mellitus with diabetic chronic kidney disease; I50.9 Heart failure, unspecified; N18.6 End stage renal disease; Z99.2 Dependence on renal dialysis; Z79.4 Long term (current) use of insulin; Z95.810 Presence of automatic (implantable) cardiac defibrillator
CPT/HCPCS: 36556; 87040 ×2; 85025; 36415; 85610; 82947; 83605; 85730; 80053; 71045; 82805; J2250; 87205; 93005; J0171